=== PATIENT | female | born 1965 | race Caucasian/White ===

== ENCOUNTER 2017-12-05 06:22 | Emergency (ER) | payer MEDICARE ==
--- OUTSIDE RECORDS SUMMARY | 2017-12-05 06:26 | XMS REPORT ---
:1965 Author Organization [facility] Address [address] [place] [address] [address]. [address] [place] [address] Care Team Providers Name Role Phone Eugenie SNELL Unavailable Unavailable Problems This patient has no known problems. Allergies, Adverse Reactions, Alerts This patient has no known allergies or adverse reactions. Medications This patient has no known medications. Results Test Description Test Time Test Comments Text Results Atomic Results Result Comments POCT-GLUCOSE METER 2017-06-25 14:35:00 Test Item Value Reference Range Comments POC-GLUCOSE METER (BEAKER) (test 200 mg/dL 70-110 TESTED AT [facility] [address] cozs=1765) [facility] [address] [id number] 12:24:00 Test Item Value Reference Range Comments SODIUM (BEAKER) (test utmr=575) 136 meq/L 136-145 POTASSIUM (BEAKER) (test lcla=278) 5.4 meq/L 3.5-5.1 CHLORIDE (BEAKER) (test xiam=187) 102 meq/L 98-107 CO2 (BEAKER) (test lxdv=706) 25 meq/L 22-29 [id number] 12:24:00 Test Item Value Reference Range Comments GLUCOSE RANDOM (BEAKER) (test nyue=739) 353 mg/dL 70-105 BUN AND [id number] 12:24:00 Test Item Value Reference Range Comments BLOOD UREA NITROGEN 14 mg/dL 7-21 (BEAKER) (test neff=426) CREATININE (BEAKER) (test 1.08 mg/dL 0.57-1.25 uqnq=627) EGFR (BEAKER) (test 53 mL/min/1.73 sq m ESTIMATED GFR IS NOT dxfv=2712) ACCURATE CREATININE CLEARANCE IN PREDICTING GLOMERULAR FILTRATION RATE. ESTIMATED GFR IS NOT APPLICABLE FOR DIALYSIS PATIENTS. POCT-HEMOGLOBIN [id number] 11:43:00 Test Item Value Reference Range Comments POC-HEMOGLOBIN METER 12.1 g/dL 12.0-15.0 [address]ED AT [address] ([facility]) (test qtue=7122) [facility] [address] POCT-GLUCOSE [id number] 11:43:00 Test Item Value Reference Range Comments POC-GLUCOSE METER ([facility]) 320 mg/dL 70-110 Verify with Lab draw/TESTED AT (test hxxw=0512) [address] [address]
--- OUTSIDE RECORDS SUMMARY | 2017-12-05 06:26 | XMS REPORT | Clinical Summary ---
:1965 Author Organization [facility] Address [address] [place] [address] Phone Care Team Providers Name Role Phone Unavailable Primary Care Provider Unavailable Allergies Active Allergy Reactions Severity Noted Date Comments Food Allergy Formula 05/25/2014 GLUTEIN-SWELLING, BLOATING AND DIARRHEA. Current Medications Prescription Sig. Disp. Refills Start Date End Date Status insulin aspart Inject 4 Units Active (NOVOLOG) 100 subcutaneously 3 unit/mL InPn (three) times daily with meals And sliding scale. pregabalin (LYRICA) Take 150 mg by Active 150 MG capsule mouth 2 (two) times daily. prasugrel (EFFIENT) Take 10 mg by mouth Active 10 mg Tab tablet daily. aspirin 81 MG Take 81 mg by mouth Active chewable tablet daily. lisinopril Take 5 mg by mouth Active (PRINIVIL,ZESTRIL) 5 daily. MG tablet simvastatin (ZOCOR) Take 40 mg by mouth Active 40 MG tablet nightly. buPROPion Take 150 mg by Active (WELLBUTRIN XL) 150 mouth daily. MG 24 hr tablet DULoxetine Take 60 mg by mouth Active (CYMBALTA) 60 MG daily. capsule cyclobenzaprine Take 10 mg by mouth Active (FLEXERIL) 10 MG 2 (two) times tablet daily. promethazine Take 25 mg by mouth Active (PHENERGAN) 25 MG every 6 (six) hours tablet as needed for Nausea. ondansetron (ZOFRAN) Take 4 mg by mouth Active 4 MG tablet as needed for Nausea. furosemide (LASIX) Take 40 mg by mouth Active 40 MG tablet as needed. pantoprazole Take 40 mg by mouth Active (PROTONIX) 40 MG daily. tablet LORazepam (ATIVAN) 1 Take 1 mg by mouth Active MG tablet every 6 (six) hours as needed for Anxiety. insulin glargine Inject 19 Units Active (LANTUS) 100 unit/mL subcutaneously injection every morning Use as directed . metoprolol Take 50 mg by mouth Active (TOPROL-XL) 50 MG 24 daily. hr tablet ferrous sulfate 325 Take 325 mg by Active (65 FE) MG tablet mouth 2 (two) times daily. traZODone (DESYREL) Take 50 mg by mouth Active 50 MG tablet nightly. dicyclomine (BENTYL) Take 20 mg by mouth Active 20 mg tablet as needed. acetaminophen Take 650 mg by Active (TYLENOL) 650 MG CR mouth 2 (two) times tablet daily. insulin detemir Inject Discontinued (LEVEMIR) 100 subcutaneously 7 unit/mL (3 mL) InPn nightly. 12 UNITS injection IN AM 4 UNITS IN PM. meloxicam (MOBIC) 15 Take 15 mg by mouth Discontinued MG tablet daily. 7 metoprolol Take 25 mg by mouth Discontinued (LOPRESSOR) 25 MG 2 (two) times 7 tablet daily. naproxen Take 220 mg by Discontinued (ALEVE,ANAPROX,MIDOL mouth as needed. 7 ) 220 MG tablet clonazePAM Take 0.5 mg by Discontinued (KLONOPIN) 0.5 MG mouth 2 (two) times 7 tablet daily as needed for Anxiety. sulfamethoxazole-tri Take 1 tablet by Discontinued methoprim (BACTRIM mouth 2 (two) times 7 DS) 800-160 mg per daily. tablet Active Problems Problem Noted Date Trigger finger of left thumb 06/25/2017 Encounters Date Type Specialty Care Team Description 06/25/2017 Hospital Encounter Jayden Marte MD 06/25/2017 Procedure Pass 06/25/2017 Surgery Jayden Marte TRIGGER B., MD FINGER 06/24/2017 Hospital Encounter Pre-Admission Jayden Marte MD 06/24/2017 Anesthesia Event Sly Malloy MD after 12/04/2016 Social History Tobacco Use Types Packs/Day Years Used Date Current Every Day Smoker 0.5 10 Smokeless Tobacco: Never Used Tobacco Cessation: Ready to Quit: Yes; Counseling Given: Yes Comments: handout to be given dos Alcohol Use Drinks/Week oz/Week Comments No Sex Assigned at Date Recorded Not on file Last Filed Vital Signs Vital Sign Reading Time Taken Blood Pressure 106/47 06/25/2017 3:26 PM CDT Pulse 77 06/25/2017 3:30 PM CDT Temperature 36.6 C (97.8 F) 06/25/2017 3:26 PM CDT Respiratory Rate 20 06/25/2017 3:26 PM CDT Oxygen Saturation 99% 06/25/2017 3:30 PM CDT Inhaled Oxygen Concentration - - Weight 90.7 kg (200 lb) 06/25/2017 11:12 AM CDT Height 162.6 cm (5' 4") 06/25/2017 11:12 AM CDT Body Mass Index 34.33 06/25/2017 11:12 AM CDT Plan of Treatment Not on file Procedures Procedure Name Priority Date/Time Associated Diagnosis Comments RELEASE,TRIGGER FINGER 06/25/2017 1:10 PM Trigger finger of left CDT thumb after 12/04/2016 Results POC-Glucose meter (06/25/2017 2:32 PM)Only the most recent of2 resultswithin the time period is included. Component Value Ref Range POC-Glucose Meter 200 (H)Comment: TESTED AT [address] 70 - 110 mg/[place] [address] Specimen Performing Laboratory Blood [facility] [address] [address] ECG 12 lead (06/25/2017 1:04 PM) Specimen Performing Laboratory GE MUSE Narrative Ventricular Rate 76 BPM Atrial Rate 76 BPM P-R Interval 156 ms QRS Duration 86 ms Q-T Interval 382 ms QTC Calculation(Bazett) 429 ms P [place] 7 degrees R [place] 59 degrees T [place] 28 degrees Normal sinus rhythm Normal ECG No previous ECGs available Confirmed by MD NASSAR CHUNG-SHIN ([id number]) on 07/06/2017 10:28:29 AM Procedure Note Interface, External Ris In - 07/06/2017 10:28 AM CDT Ventricular Rate 76 BPM Atrial Rate 76 BPM P-R Interval 156 ms QRS Duration 86 ms Q-T Interval 382 ms QTC Calculation(Bazett) 429 ms P [place] 7 degrees R [place] 59 degrees T [place] 28 degrees Normal sinus rhythm Normal ECG No previous ECGs available Confirmed by MD NASSAR CHUNG-SHIN ([id number]) on 07/06/2017 10:28:29 AM BUN and Creatinine (06/25/2017 11:38 AM) Component Value Ref Range BUN 14 7 - 21 mg/dL Creatinine 1.08 0.57 - 1.25 mg/dL EGFR 53Comment: ESTIMATED GFR IS NOT ACCURATE mL/min/1.73 sq m CREATININE CLEARANCE IN PREDICTING GLOMERULAR FILTRATION RATE. ESTIMATED GFR IS NOT APPLICABLE FOR DIALYSIS PATIENTS. Specimen Performing Laboratory Blood - Arm, [address] [address] Glucose (06/25/2017 11:38 AM) Component Value Ref Range Glucose 353 (H) 70 - 105 mg/dL Specimen Performing Laboratory Blood - Arm, [address] [address] Electrolytes (06/25/2017 11:38 AM) Component Value Ref Range Sodium 136 136 - 145 meq/L Potassium 5.4 (H) 3.5 - 5.1 meq/L Chloride 102 98 - 107 meq/L CO2 25 22 - 29 meq/L Specimen Performing Laboratory Blood - Arm, [address] [address] POC-Hemoglobin meter (06/25/2017 11:34 AM) Component Value Ref Range POC-Hemoglobin Meter 12.1Comment: TESTED AT [address] 12.0 - 15.0 g/ dL [facility] [address] Specimen Performing Laboratory Blood [address] [address] POCT , urine (06/25/2017 10:56 AM) Component Value Ref Range Test Urine, POC Negative Control line present?, POC Yes Background clear?, POC Yes UPT Cassette Lot #, POC [id number] UPT Cassette Expiration Date, POC 11/03/18 Specimen Performing Laboratory Urine after 12/04/2016
--- NOTE | 2017-12-05 08:04 | RAD REPORT ---
EXAM DESCRIPTION: CT - Thorax Wo Con - 12/05/2017 7:27 am CLINICAL HISTORY: Right chest pain status post fall 3 days ago COMPARISON: 2012 TECHNIQUE: Computed axial tomography of the chest was obtained. Contrast was not requested. All CT scans are performed using dose optimization technique as appropriate and may include automated exposure control or mA/KV adjustment according to patient size. FINDINGS: The evaluation of mediastinum, patricia and vessels is limited secondary to lack of IV contras t administration. Callus formation is present about subacute fracture involving the posterolateral rib fracture. A pulmonary contusion is not present. A mediastinal hematoma is not seen. A pleural effusion is not present. A pericardial effusion is not present Postsurgical changes involve the stomach. The esophagus is mildly dilated containing fluid without si gnificant change from the prior exam. This may be secondary to reflux Coronary arterial calcifications are present IMPRESSION: Callus formation is present about a late subacute right posterolateral rib fracture. The esophagus is mildly dilated containing fluid without significant change from the prior exam. Thi s may be secondary to reflux
--- NOTE | 2017-12-05 08:16 | EDPHYS ---
Physician Documentation [facility] Name: Ila Pérez Age: 52 yrs Sex: Female : 1965 Arrival Date: 12/05/2017 Time: 06:26 Bed 6 Private MD: Fabián Guerra E ED Physician Yoan Landon HPI: 12/05 06:45 This 52 yrs old Female presents to ER via Ambulatory with complaints of kb Cough, right rib pain, Fall Injury. 06:45 The patient or guardian reports chest pain that is located primarily in the anterior kb chest wall. Onset: The symptoms/episode began/occurred 3 day(s) ago. The pain does not radiate. Associated signs and symptoms: Pertinent positives: cough. The chest pain is described as aching. Duration: The patient or guardian reports a single episode, that is still ongoing, and unchanged. Modifying factors: The symptoms are alleviated by nothing. the symptoms are aggravated by cough, deep breath, movement, palpation of area. Severity of pain: At its worst the pain was mild moderate in the emergency department the pain is unchanged. The patient has not experienced similar symptoms in the past. The patient has not recently seen a physician. Pt states she fell 3 days ago and landed with right arm under her right lower ribs. Has had pain to right lower ribs since then. Pain is worse with cough, deep breath, movement and palpation. States she has been fighting a cold since before the fall and she hasn't been coughing good because of the pain. Historical: - Allergies: 06:45 Gluten Protein; bb - Home Meds: 07:05 Lantus Sub-Q 18 unit in morning [Active]; Humalog 100 unit/mL Sub-Q soln [Active]; bb lisinopril 5 mg Oral tab 1 tab once daily [Active]; bupropion HCl 150 mg Oral TbER once daily [Active]; aspirin 81 mg Oral TbEC 1 tab once daily [Active]; pantoprazole 40 mg oral TbEC 1 tab 2 times per day [Active]; Lyrica Oral 150 mg 2 times per day [Active]; lorazepam 1 mg Oral tab twice a day [Active]; Vasculera 630 mg oral tab daily [Active]; cyclobenzaprine 10 mg Oral tab twice a day [Active]; ferrous sulfate 325 mg (65 mg iron) Oral TbEC twice a day [Active]; metoprolol succinate 25 mg oral Tb24 1 tab once daily [Active]; duloxetine 60 mg oral cpDR 2 caps once daily [Active]; zaleplon 10 mg oral cap 1 cap once daily [Active]; Rozerem 8 mg Oral tab 1 tab bedtime [Active]; trazodone 50 mg Oral tab nightly [Active]; Myrbetriq 25 mg oral Tb24 1 tab once daily [Active]; furosemide 40 mg Oral tab 1 tab once daily [Active]; benzonatate 100 mg oral cap 1 cap twice a day [Active]; tramadol 50 mg Oral tab 1 tab three times a day [Active]; dicyclomine 20 mg Oral tab 1 tab 4 times per day [Active]; promethazine 25 mg Oral tab 1 tab q6h prn [Active]; ondansetron HCl 8 mg Oral tab [Active]; Albuterol Inhl [Active]; hydroxyzine HCl 25 mg Oral tab 1 tab twice a day [Active]; diphenoxylate-atropine 2.5-0.025 mg Oral tab 1-2 tablets every 6 hours [Active]; Carafate 100 mg/mL Oral susp 10 mL three times a day [Active]; nitroglycerin 0.4 mg SL subl 1 tab every 5 minutes [Active]; claritan [Active]; super B complex [Active]; K2 [Active]; Folic Acid Oral [Active]; D3 2000 IU 2 per day [Active]; Glucosamine oral oral [Active]; [place] 120 mg daily [Active]; Cinnamon 500 mg oral cap 2 cap daily [Active]; multivitamin oral cap [Active]; vitamin E 400 unit Oral cap daily [Active]; - PMHx: 07:05 Anxiety; Arthritis; Depression; Diabetes - IDDM; Esophagitis; Fibromyalgia; bb gastroporeisis; GERD; heart disease; High Cholesterol; Hypertension; Myocardial infarction; neuropathy; raynaud's; sleep disorder; Tachycardia; - PSHx: 07:05 Tonsillectomy; Gastric Bypass; Cholecystectomy; ; Rt femur repair; bb - Immunization history:: Adult Immunizations up to date. - Social history:: Smoking status: Patient uses tobacco products, smokes one-half pack cigarettes per day, Patient/guardian denies using alcohol, street drugs. ROS: 06:45 Constitutional: Negative for fever, chills, and weight loss, ENT: Negative for injury, kb pain, and discharge, Neck: Negative for injury, pain, and swelling, Abdomen/GI: Negative for abdominal pain, nausea, vomiting, diarrhea, and constipation, Back: Negative for injury and pain, MS/Extremity: Negative for injury and deformity, Skin: Negative for injury, rash, and discoloration, Neuro: Negative for headache, weakness, numbness, tingling, and seizure. 06:45 Cardiovascular: Positive for chest pain, with cough, with movement, of the right lateral posterior chest and right lateral anterior chest, Negative for edema, orthopnea, palpitations, paroxysmal nocturnal dyspnea. 06:45 Respiratory: Positive for cough, with no reported sputum, Negative for dyspnea on exertion, hemoptysis, orthopnea, pleurisy, shortness of breath, sputum production, wheezing. Exam: 06:45 Constitutional: This is a well developed, well nourished patient who is awake, alert, kb and in no acute distress. Head/Face: Normocephalic, atraumatic. ENT: Nares patent. No nasal discharge, no septal abnormalities noted. Tympanic membranes are normal and external auditory canals are clear. Oropharynx with no redness, swelling, or masses, exudates, or evidence of obstruction, uvula midline. Mucous membranes moist. Neck: Trachea midline, no thyromegaly or masses palpated, and no cervical lymphadenopathy. Supple, full range of motion without nuchal rigidity, or vertebral point tenderness. No Meningismus. Cardiovascular: Regular rate and rhythm with a normal S1 and S2. No gallops, murmurs, or rubs. Normal PMI, no JVD. No pulse deficits. Respiratory: Lungs have equal breath sounds bilaterally, clear to auscultation and percussion. No rales, rhonchi or wheezes noted. No increased work of breathing, no retractions or nasal flaring. Abdomen/GI: Soft, non-tender, with normal bowel sounds. No distension or tympany. No guarding or rebound. No evidence of tenderness throughout. Back: No spinal tenderness. No costovertebral tenderness. Full range of motion. Skin: Warm, dry with normal turgor. Normal color with no rashes, no lesions, and no evidence of cellulitis. MS/ Extremity: Pulses equal, no cyanosis. Neurovascular intact. Full, normal range of motion. Neuro: Awake and alert, GCS 15, oriented to person, place, time, and situation. Cranial nerves II-XII grossly intact. Motor strength 5/5 in all extremities. Sensory grossly intact. Cerebellar exam normal. Normal gait. 06:45 Chest/axilla: Inspection: normal, Palpation: tenderness, that is moderate, of the right lateral posterior chest and right lateral anterior chest, that totally reproduces the patient's complaints. Vital Signs: 06:45 BP 143 / 62; Pulse 92; Resp 18 S; Temp 97.7(O); Pulse Ox 100% on R/A; Weight 95.25 kg bb (R); Height 5 ft. 4 in. (162.56 cm) (R); Pain 7/10; 07:13 BP 126 / 49; Pulse 85; Resp 16 S; Pulse Ox 99% on R/A; jl7 08:00 BP 130 / 70; Pulse 82; Resp 16 S; Pulse Ox 100% on R/A; jl7 06:45 Body Mass Index 36.05 (95.25 kg, 162.56 cm) bb MDM: 06:41 Patient medically screened. kb 06:45 Data reviewed: vital signs, nurses notes. Data interpreted: Pulse oximetry: on room air kb is 100 %. Interpretation: normal. 08:15 Counseling: I had a detailed discussion with the patient and/or guardian regarding: the kb historical points, exam findings, and any diagnostic results supporting the discharge/admit diagnosis, radiology results, the need for outpatient follow up, a family practitioner, to return to the emergency department if symptoms worsen or persist or if there are any questions or concerns that arise at home. 12/05 06:44 Order name: CT Chest Wo Con; Complete Time: 08:10 kb Administered Medications: 08:05 Drug: TORadol 60 mg Route: IM; Site: right gluteus; jl7 08:25 Follow up: Response: No adverse reaction; Pain is decreased jl7 Disposition: 21:15 Co-signature as Attending Physician, Yoan Landon MD. pkl Disposition: 12/05/17 08:16 Discharged to Home. Impression: Fracture of one rib, right side, Chest pain on breathing. - Condition is Stable. - Discharge Instructions: Chest Wall Pain, [id number]-[id number], Rib Fracture, [id number]. - Prescriptions for Diclofenac Sodium 75 mg Oral Tablet, Delayed Release (E.C.) - take 1 tablet by ORAL route 2 times per day As needed; 30 tablet. - Medication Reconciliation Form, Thank You Letter, Antibiotic Education, Prescription Opioid Use form. - Follow up: Emergency Department; When: As needed; Reason: Worsening of condition. Follow up: Private Physician; When: 2 - 3 days; Reason: Recheck today's complaints, Continuance of care, Re-evaluation by your physician. Signatures: Dispatcher [employer] ED[facility] Leanne Garrison, MILENAC NICOLAS-Yoan Christopher MD MD pkl Ballard, Brenda, RN RN Elin Nixon RN RN jl7
--- NOTE | 2017-12-05 08:16 | ER ---
Nurse's Notes [facility] Name: Ila Pérez Age: 52 yrs Sex: Female : 1965 Arrival Date: 12/05/2017 Time: 06:26 Bed 6 Private MD: Fabián Guerra E Diagnosis: Fracture of one rib, right side;Chest pain on breathing Presentation: 12/05 06:40 Presenting complaint: Patient states: she fell three days ago and has pain under her bb right breast radiating around to her back, pain is worse when lying flat and taking a deep breath pt denies LOC. Transition of care: patient was not received from another setting of care. Onset of symptoms was December 01, 2017. Care prior to arrival: None. 06:40 Method Of Arrival: Ambulatory bb 06:40 Acuity: DEVONTE 4 bb Historical: - Allergies: 06:45 Gluten Protein; bb - Home Meds: 07:05 Lantus Sub-Q 18 unit in morning [Active]; Humalog 100 unit/mL Sub-Q soln [Active]; bb lisinopril 5 mg Oral tab 1 tab once daily [Active]; bupropion HCl 150 mg Oral TbER once daily [Active]; aspirin 81 mg Oral TbEC 1 tab once daily [Active]; pantoprazole 40 mg oral TbEC 1 tab 2 times per day [Active]; Lyrica Oral 150 mg 2 times per day [Active]; lorazepam 1 mg Oral tab twice a day [Active]; Vasculera 630 mg oral tab daily [Active]; cyclobenzaprine 10 mg Oral tab twice a day [Active]; ferrous sulfate 325 mg (65 mg iron) Oral TbEC twice a day [Active]; metoprolol succinate 25 mg oral Tb24 1 tab once daily [Active]; duloxetine 60 mg oral cpDR 2 caps once daily [Active]; zaleplon 10 mg oral cap 1 cap once daily [Active]; Rozerem 8 mg Oral tab 1 tab bedtime [Active]; trazodone 50 mg Oral tab nightly [Active]; Myrbetriq 25 mg oral Tb24 1 tab once daily [Active]; furosemide 40 mg Oral tab 1 tab once daily [Active]; benzonatate 100 mg oral cap 1 cap twice a day [Active]; tramadol 50 mg Oral tab 1 tab three times a day [Active]; dicyclomine 20 mg Oral tab 1 tab 4 times per day [Active]; promethazine 25 mg Oral tab 1 tab q6h prn [Active]; ondansetron HCl 8 mg Oral tab [Active]; Albuterol Inhl [Active]; hydroxyzine HCl 25 mg Oral tab 1 tab twice a day [Active]; diphenoxylate-atropine 2.5-0.025 mg Oral tab 1-2 tablets every 6 hours [Active]; Carafate 100 mg/mL Oral susp 10 mL three times a day [Active]; nitroglycerin 0.4 mg SL subl 1 tab every 5 minutes [Active]; claritan [Active]; super B complex [Active]; K2 [Active]; Folic Acid Oral [Active]; D3 2000 IU 2 per day [Active]; Glucosamine oral oral [Active]; [place] 120 mg daily [Active]; Cinnamon 500 mg oral cap 2 cap daily [Active]; multivitamin oral cap [Active]; vitamin E 400 unit Oral cap daily [Active]; - PMHx: 07:05 Anxiety; Arthritis; Depression; Diabetes - IDDM; Esophagitis; Fibromyalgia; bb gastroporeisis; GERD; heart disease; High Cholesterol; Hypertension; Myocardial infarction; neuropathy; raynaud's; sleep disorder; Tachycardia; - PSHx: 07:05 Tonsillectomy; Gastric Bypass; Cholecystectomy; ; Rt femur repair; bb - Immunization history:: Adult Immunizations up to date. - Social history:: Smoking status: Patient uses tobacco products, smokes one-half pack cigarettes per day, Patient/guardian denies using alcohol, street drugs. Screenin:42 Abuse screen: Denies threats or abuse. Denies injuries from another. Nutritional aa1 screening: No deficits noted. Tuberculosis screening: No symptoms or risk factors identified. Fall Risk Fall in past 12 months (25 points). Assessment: 06:42 General: Appears in no apparent distress. comfortable, Behavior is calm, cooperative, aa1 appropriate for age. Pain: Complains of pain in underneath right breast Quality of pain is described as sharp, Pain began 2-3 days ago. after falling Is intermittent. Neuro: Level of Consciousness is awake, alert, obeys commands, Oriented to person, place, time, situation. Cardiovascular: Heart tones S1 S2 present Rhythm is regular. Respiratory: Reports pain with cough pain with respiration Airway is patent Respiratory effort is even, unlabored, Respiratory pattern is regular, symmetrical, Breath sounds are clear bilaterally. GI: No signs and/or symptoms were reported involving the gastrointestinal system. : No signs and/or symptoms were reported regarding the genitourinary system. EENT: No signs and/or symptoms were reported regarding the EENT system. Derm: Skin is intact, is healthy with good turgor, Skin is pink, warm \T\ dry. Musculoskeletal: Circulation, motion, and sensation intact. Capillary refill < 3 seconds, Range of motion: intact in all extremities. 07:30 Reassessment: Pt to radiology. jl7 07:55 Reassessment: Patient and/or family updated on plan of care and expected duration. Pain jl7 level reassessed. Patient is alert, oriented x 3, equal unlabored respirations, skin warm/dry/pink. pt c/o pain underneath the right breast, rated 7/10. Provider notified. See MAR for orders. 08:25 Reassessment: Pt reports decreased pain at this time. jl7 Vital Signs: 06:45 BP 143 / 62; Pulse 92; Resp 18 S; Temp 97.7(O); Pulse Ox 100% on R/A; Weight 95.25 kg bb (R); Height 5 ft. 4 in. (162.56 cm) (R); Pain 7/10; 07:13 BP 126 / 49; Pulse 85; Resp 16 S; Pulse Ox 99% on R/A; jl7 08:00 BP 130 / 70; Pulse 82; Resp 16 S; Pulse Ox 100% on R/A; jl7 06:45 Body Mass Index 36.05 (95.25 kg, 162.56 cm) bb ED Course: 06:26 Patient arrived in ED. am2 06:26 Fabián Guerra MD is Private Physician. am2 06:41 [facility] kb 06:41 Yoan Landon MD is Attending Physician. kb 06:42 Triage completed. bb 06:42 Patient has correct armband on for positive identification. Bed in low position. Call aa1 light in reach. Pulse ox on. NIBP on. Warm blanket given. 06:45 Arm band placed on Patient placed in an exam room, on a stretcher, on pulse oximetry. bb 07:05 Elin Abrams, RN is Primary Nurse. jl7 07:27 CT completed. Patient tolerated procedure well. Patient moved back from CT. vr 07:27 CT Chest Wo Con In Process Unspecified. EDMS 08:25 No provider procedures requiring assistance completed. Patient did not have IV access jl7 during this emergency room visit. Administered Medications: 08:05 Drug: TORadol 60 mg Route: IM; Site: right gluteus; jl7 08:25 Follow up: Response: No adverse reaction; Pain is decreased jl7 Outcome: 08:16 Discharge ordered by . cipriano 08:25 Discharged to home ambulatory. jl7 08:25 Condition: stable 08:25 Discharge instructions given to patient, Instructed on discharge instructions, follow up and referral plans. medication usage, Demonstrated understanding of instructions, follow-up care, medications, Prescriptions given X 1. 08:28 Patient left the ED. jl7 Signatures: Dispatcher [employer] EDTX Leanne Garrison, PERSONAL LINES ACCOUNT MANAGER-C PERSONAL LINES ACCOUNT MANAGER-CkSteph Gomez, RN RN Reshma Lamar, RN RN Elise Ga Elin Abrams, RN RN jl7 Erendira Dao
[2017-12-05] MEDS ORDERED: KETOROLAC 30 MG/ML INJ ONE (08:21)
[2017-12-05 08:33] VITALS: TEMP 97.7
[2017-12-05 08:35] VITALS: BP 130/70; O2SAT 100
== END 2017-12-05 08:28 | disposition home or self-care (01) ==
LOC: ER 06:22
DX: S22.31XA Fracture of one rib, right side, initial encounter for closed fracture (principal); F41.9 Anxiety disorder, unspecified; K21.9 Gastro-esophageal reflux disease without esophagitis; E11.9 Type 2 diabetes mellitus without complications; I10 Essential (primary) hypertension; M79.7 Fibromyalgia; E78.00 Pure hypercholesterolemia, unspecified; I51.9 Heart disease, unspecified; F17.210 Nicotine dependence, cigarettes, uncomplicated; W19.XXXA Unspecified fall, initial encounter; Y93.9 Activity, unspecified; Y92.9 Unspecified place or not applicable; Y99.9 Unspecified external cause status; Z91.018 Allergy to other foods
CPT/HCPCS: 71250; 96372; 99284

== ENCOUNTER 2017-12-12 18:32 | Emergency (ER) | payer MEDICARE ==
--- OUTSIDE RECORDS SUMMARY | 2017-12-12 18:34 | XMS REPORT ---
:1965 Author Organization [facility] Address [address] [place] [address] [address]. [address] [place] [address] Care Team Providers Name Role Phone Eugenie [...] (BEAKER) (test 200 mg/dL 70-[address] [facility] [address] [facility] [id number]) [facility] [address] [id number] 12:24:00 Test Item Value Reference Range Comments SODIUM (BEAKER) (test spty=241) 136 meq/L 136-145 POTASSIUM (BEAKER) (test mmsj=208) 5.4 meq/L 3.5-5.1 CHLORIDE (BEAKER) (test pytw=296) 102 meq/L 98-107 CO2 (BEAKER) (test lawd=530) 25 meq/L 22-29 [id number] 12:24:00 Test Item Value Reference Range Comments GLUCOSE RANDOM (BEAKER) (test lbdi=754) 353 mg/dL 70-105 BUN AND [id number] 12:24:00 Test Item Value Reference Range Comments BLOOD UREA NITROGEN 14 mg/dL 7-21 (BEAKER) (test kkfu=130) CREATININE (BEAKER) (test 1.08 mg/dL 0.57-1.25 wqoy=610) EGFR (BEAKER) (test 53 mL/min/1.73 sq m ESTIMATED GFR IS NOT hphp=8614) ACCURATE CREATININE CLEARANCE IN PREDICTING GLOMERULAR FILTRATION RATE. ESTIMATED GFR IS NOT APPLICABLE FOR DIALYSIS PATIENTS. POCT-HEMOGLOBIN [id number] 11:43:00 Test Item Value Reference Range Comments POC-HEMOGLOBIN METER 12.1 g/dL 12.0-15.0 [address]ED AT [address] ([facility]) (test cvly=6168) [facility] [address] POCT-GLUCOSE [id number] 11:43:00 Test Item Value Reference Range Comments POC-GLUCOSE METER ([facility]) 320 mg/dL 70-110 Verify with Lab draw/TESTED AT (test iije=3220) [address] [address]
--- OUTSIDE RECORDS SUMMARY | 2017-12-12 18:34 | XMS REPORT | Clinical Summary ---
:1965 Author Organization [facility] Address [address] [place] [address] Phone Care Team Providers Name Role Phone [...] 06/24/2017 Anesthesia Event Sly Malloy MD after 12/11/2016 Social History Tobacco Use Types Packs/Day Years [...] Trigger finger of left CDT thumb after 12/11/2016 Results POC-Glucose meter (06/25/2017 2:32 PM)Only the most recent of2 resultswithin the time period is included. Component Value Ref Range POC-Glucose Meter 200 (H)Comment: TESTED AT [address] 70 - 110 mg/[place] [address] Specimen Performing Laboratory Blood [facility] [address] [address] ECG 12 lead (06/25/2017 1:04 PM) Specimen Performing Laboratory GE MUSE Narrative Ventricular Rate 76 BPM Atrial Rate 76 BPM P-R Interval 156 ms QRS Duration 86 ms Q-T Interval 382 ms QTC Calculation(Bazett) 429 ms P [place] 7 degrees R [place] 59 degrees T [place] 28 degrees Normal sinus rhythm Normal ECG No previous ECGs available Confirmed by MD NASSAR CHUNG-SHIN ([id number]) on 07/06/2017 10:28:29 AM Procedure Note Interface, External Ris In - 07/06/2017 10:28 AM CDT Ventricular Rate 76 BPM Atrial Rate 76 BPM P-R Interval 156 ms QRS Duration 86 ms Q-T Interval 382 ms QTC Calculation(Bazett) 429 ms P [place] 7 degrees R [place] 59 degrees T [place] 28 degrees Normal sinus rhythm Normal ECG [...] PATIENTS. Specimen Performing Laboratory Blood - Arm, [address] [address] Glucose (06/25/2017 11:38 AM) Component Value Ref Range Glucose 353 (H) 70 - 105 mg/dL Specimen Performing Laboratory Blood - Arm, [address] [address] Electrolytes (06/25/2017 11:38 AM) Component Value Ref Range Sodium 136 136 - 145 meq/L Potassium 5.4 (H) 3.5 - 5.1 meq/L Chloride 102 98 - 107 meq/L CO2 25 22 - 29 meq/L Specimen Performing Laboratory Blood - Arm, [address] [address] POC-Hemoglobin meter (06/25/2017 11:34 AM) Component Value Ref Range POC-Hemoglobin Meter 12.1Comment: TESTED AT [address] 12.0 - 15.0 g/ dL [facility] [address] Specimen Performing Laboratory Blood [address] [address] POCT , urine (06/25/2017 10:56 AM) Component Value Ref Range Test Urine, POC Negative Control line present?, POC Yes Background clear?, POC Yes UPT Cassette Lot #, POC [id number] UPT Cassette Expiration Date, POC 11/03/18 Specimen Performing Laboratory Urine after 12/11/2016
[2017-12-12] MEDS ORDERED: ONDANSETRON 4 MG/2 ML VIAL ONE (19:23)
[2017-12-12] MEDS ORDERED: MORPHINE 10 MG/ML VIAL ONE (19:23)
[2017-12-12 19:39] LABS: Absolute Lymphocytes (CBC) 2.1 K/uL (0.7-4.9); Absolute Monocytes 0.8 K/uL (0.1-1.3); Absolute Neutrophil 7.6 K/uL (1.8-8.0); Basophils % 0.8 % (0-1.3); Eosinophils % 2.8 % (0-4.4); Hematocrit 40.9 % (36.0-45.0); MCH 27.1 pg (27.0-35.0); MPV 9.8 fL (7.6-11.3); Monocytes % 7.6 % (3.3-12.3); RBC Red Blood Cell Count 5.05 M/uL (3.86-4.86)
[2017-12-12 19:44] LABS: Protime INR 0.94
[2017-12-12 19:49] LABS: Potassium 4.5 mEq/L (3.6-5.0)
--- NOTE | 2017-12-12 19:50 | RAD REPORT ---
EXAM DESCRIPTION: Jesus Single View12/12/2017 7:22 pm CLINICAL HISTORY: Chest pain COMPARISON: December 05, 2017 FINDINGS: The lungs appear clear of acute infiltrate. The heart is normal size IMPRESSION: No acute abnormalities displayed
[2017-12-12 19:55] LABS: Albumin 4.3 g/dL (3.2-5.5); Bilirubin Direct 0.1 mg/dL (0-0.2); Bilirubin Total 0.8 mg/dL (0.3-1.2); Magnesium 1.7 mg/dL (1.8-2.5); Protein, Total 7.9 g/dL (6.0-8.3)
[2017-12-12] MEDS ORDERED: NA CHLORIDE 0.9% 1,000 ML ONE ×2 (20:26→23:08)
[2017-12-12 21:57] LABS: Urine Blood NEGATIVE (NEG); Urine Glucose 1+ (NEG); Urine Protein TRACE (NEG); Urine Specific Gravity 1.015 (1.005-1.030)
[2017-12-12] MEDS ORDERED: PROMETHAZINE 25 MG/ML VIAL ONE (22:01)
[2017-12-12] MEDS ORDERED: INSULIN -REGULAR HUMAN 50 UNIT/0.5 ML ML ONE (23:08)
--- NOTE | 2017-12-13 00:10 | EDPHYS ---
Physician Documentation [facility] Name: Ila Pérez Age: 52 yrs Sex: Female : 1965 Arrival Date: 12/12/2017 Time: 18:34 Bed 5 Private MD: Fabián Guerra E ED Physician Chuy Cox HPI: 12/12 21:23 This 52 yrs old Female presents to ER via Ambulatory with complaints of Chest pm1 Pain, Nausea. 21:23 The patient or guardian reports chest pain that is located primarily in the substernal pm1 area. Onset: 2 hours prior to arrival. 21:24 Associated signs and symptoms: Pertinent positives: cough, nausea, shortness of breath, pm1 Pertinent negatives: abdominal pain, diaphoresis, dizziness, vomiting. The chest pain is described as sharp. Duration: The patient or guardian reports a single episode. Modifying factors: The symptoms are alleviated by nothing. the symptoms are aggravated by deep breath, palpation of area. Severity of pain: in the emergency department the pain is unchanged. The patient has experienced similar episodes in the past, several times. The patient has not recently seen a physician. Patient denies any radiation of pain to me. Patient reports urinary frequency with little urine production. Patient feels that she might have a urinary tract infection. 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 TECHNICAL SPECIALIST: 18:41 LMP N/A - Irregular menses hj Historical: - Allergies: 18:41 Gluten Protein; hj - Home Meds: 18:41 Albuterol Inhl [Active]; aspirin 81 mg Oral TbEC 1 tab once daily [Active]; benzonatate hj 100 mg Oral cap 1 cap twice a day [Active]; bupropion HCl 150 mg Oral TbER once daily [Active]; Carafate 100 mg/mL Oral susp 10 mL three times a day [Active]; Cinnamon 500 mg Oral cap 2 cap daily [Active]; claritan [Active]; cyclobenzaprine 10 mg Oral tab twice a day [Active]; D3 2000 IU 2 per day [Active]; dicyclomine 20 mg Oral tab 1 tab 4 times per day [Active]; diphenoxylate-atropine 2.5-0.025 mg Oral tab 1-2 tablets every 6 hours [Active]; duloxetine 60 mg Oral cpDR 2 caps once daily [Active]; ferrous sulfate 325 mg (65 mg iron) Oral TbEC twice a day [Active]; Folic Acid Oral [Active]; furosemide 40 mg Oral tab 1 tab once daily [Active]; Ginko [place] 120 mg daily [Active]; Glucosamine Oral [Active]; Humalog 100 unit/mL Sub-Q soln [Active]; hydroxyzine HCl 25 mg Oral tab 1 tab twice a day [Active]; k2 [Active]; Lantus Sub-Q 18 unit in morning [Active]; lisinopril 5 mg Oral tab 1 tab once daily [Active]; lorazepam 1 mg Oral tab twice a day [Active]; Lyrica Oral 150 mg 2 times per day [Active]; metoprolol succinate 25 mg Oral Tb24 1 tab once daily [Active]; multivitamin Oral cap [Active]; Myrbetriq 25 mg Oral Tb24 1 tab once daily [Active]; nitroglycerin 0.4 mg SL subl 1 tab every 5 minutes [Active]; ondansetron HCl 8 mg Oral tab [Active]; pantoprazole 40 mg Oral TbEC 1 tab 2 times per day [Active]; promethazine 25 mg Oral tab 1 tab q6h prn [Active]; Rozerem 8 mg Oral tab 1 tab bedtime [Active]; super B complex [Active]; tramadol 50 mg Oral tab 1 tab three times a day [Active]; trazodone 50 mg Oral tab nightly [Active]; Vasculera 630 mg Oral tab daily [Active]; vitamin E 400 unit Oral cap daily [Active]; zaleplon 10 mg Oral cap 1 cap once daily [Active]; - PMHx: 18:41 Anxiety; Arthritis; Depression; Diabetes - IDDM; Esophagitis; Fibromyalgia; hj gastroporeisis; GERD; heart disease; High Cholesterol; Hypertension; Myocardial infarction; neuropathy; raynaud's; sleep disorder; Tachycardia; - PSHx: 18:41 Tonsillectomy; Gastric Bypass; Cholecystectomy; ; Rt femur repair; hj - Immunization history:: Adult Immunizations up to date. - Social history:: Smoking status: Patient/guardian denies using tobacco. ROS: 21:24 Constitutional: Negative for fever, chills, and weight loss, Eyes: Negative for injury, pm1 pain, redness, and discharge, ENT: Negative for injury, pain, and discharge, Neck: Negative for injury, pain, and swelling. 21:24 Abdomen/GI: Negative for abdominal pain, nausea, vomiting, diarrhea, and constipation, Back: Negative for injury and pain. 21:24 MS/Extremity: Negative for injury and deformity, Skin: Negative for injury, rash, and discoloration, Neuro: Negative for headache, weakness, numbness, tingling, and seizure. 21:24 Cardiovascular: Positive for chest pain, Negative for edema, palpitations, paroxysmal nocturnal dyspnea. 21:24 Respiratory: Positive for cough, shortness of breath, Negative for sputum production, wheezing. 21:24 : Positive for urinary frequency, small amounts. Exam: 21:31 Constitutional: This is a well developed, well nourished patient who is awake, alert, pm1 and in no acute distress. Head/Face: Normocephalic, atraumatic. Eyes: Pupils equal round and reactive to light, extra-ocular motions intact. Lids and lashes normal. Conjunctiva and sclera are non-icteric and not injected. Cornea within normal limits. Periorbital areas with no swelling, redness, or edema. ENT: Nares patent. No nasal discharge, no septal abnormalities noted. Tympanic membranes are normal and external auditory canals are clear. Oropharynx with no redness, swelling, or masses, exudates, or evidence of obstruction, uvula midline. Mucous membranes moist. Neck: Trachea midline, no thyromegaly or masses palpated, and no cervical lymphadenopathy. Supple, full range of motion without nuchal rigidity, or vertebral point tenderness. No Meningismus. 21:31 Cardiovascular: Regular rate and rhythm with a normal S1 and S2. No gallops, murmurs, or rubs. No pulse deficits. Respiratory: Lungs have equal breath sounds bilaterally, clear to auscultation and percussion. No rales, rhonchi or wheezes noted. No increased work of breathing, no retractions or nasal flaring. Abdomen/GI: Soft, non-tender, with normal bowel sounds. No distension or tympany. No guarding or rebound. No evidence of tenderness throughout. Back: No spinal tenderness. No costovertebral tenderness. Full range of motion. Skin: Warm, dry with normal turgor. Normal color with no rashes, no lesions, and no evidence of cellulitis. MS/ Extremity: Pulses equal, no cyanosis. Neurovascular intact. Full, normal range of motion. 21:31 Chest/axilla: Inspection: normal, Palpation: tenderness, that is moderate, of the mid-sternal area, that totally reproduces the patient's complaints. 21:31 Neuro: Orientation: is normal, Mentation: is normal, Motor: moves all fours, strength is normal, strength is 5/5 in all extremities, Sensation: is normal, no obvious gross deficits. Vital Signs: 18:41 BP 115 / 70; Pulse 107; Resp 18; Temp 97.6(TE); Pulse Ox 99% on R/A; Weight 90.72 kg; hj Height 5 ft. 4 in. (162.56 cm); Pain 7/10; 20:10 BP 123 / 56; Pulse 95; Resp 16; Pulse Ox 100% on R/A; la1 21:32 BP 146 / 77; Pulse 100; Resp 16; Pulse Ox 100% on R/A; la1 23:10 BP 132 / 60; Pulse 95; Resp 18; Pulse Ox 100% on R/A; Pain 0/10; ak1 18:41 Body Mass Index 34.33 (90.72 kg, 162.56 cm) hj MDM: 18:48 Patient medically screened. pm1 21:31 Data reviewed: vital signs. Data interpreted: Pulse oximetry: on room air is 100 %. pm1 Interpretation: normal. 22:57 Differential diagnosis: acute myocardial infarction, chest wall pain, pneumonia, pm1 unstable angina, rib fracture pain, hyperglycemia, DKA. 12/12 18:55 Order name: Basic Metabolic Panel pm1 12/12 18:55 Order name: BNP pm1 12/12 18:55 Order name: CBC with Diff; Complete Time: 20:04 pm12/12 18:55 Order name: LFT's; Complete Time: 20:04 pm1 12/12 18:55 Order name: Magnesium; Complete Time: 20:04 pm12/12 18:55 Order name: PT-INR; Complete Time: 20:04 pm12/12 18:55 Order name: Ptt, Activated; Complete Time: 20:04 pm12/12 18:55 Order name: Troponin (emerg Dept Use Only); Complete Time: 20:04 pm1 12/12 18:55 Order name: XRAY Chest (1 view); Complete Time: 20:04 pm1 12/12 18:55 Order name: Basic Metabolic Panel; Complete Time: 20:04 EDMS 12/12 18:55 Order name: BNP B-Type Natriuretic Peptide; Complete Time: 20:19 EDMS 12/12 21:38 Order name: Urine Dipstick--Ancillary (enter results); Complete Time: 22:00 em1 12/12 22:28 Order name: Troponin (emerg Dept Use Only): Draw at 2300; Complete Time: 23:45 pm1 12/12 18:55 Order name: EKG; Complete Time: 18:55 pm1 12/12 18:55 Order name: Cardiac monitoring; Complete Time: 19:00 pm1 12/12 18:55 Order name: EKG - Nurse/Tech; Complete Time: 19:34 pm1 12/12 18:55 Order name: IV Saline Lock; Complete Time: 19:34 pm1 12/12 18:55 Order name: Labs collected and sent; Complete Time: 19:34 pm1 12/12 18:55 Order name: O2 Per Protocol; Complete Time: 19:34 pm1 12/12 18:55 Order name: O2 Sat Monitoring; Complete Time: 19:34 pm1 12/12 18:55 Order name: Urine Dipstick-Ancillary (obtain specimen); Complete Time: 21:27 pm1 12/12 18:55 Order name: Urine Test (obtain specimen); Complete Time: 21:27 pm1 12/12 23:46 Order name: FSBS; Complete Time: 23:51 snw Administered Medications: 19:34 Drug: morphine 4 mg Route: IVP; Site: right antecubital; la1 20:10 Follow up: Response: No adverse reaction; Pain is decreased la1 19:34 Drug: Zofran 4 mg Route: IVP; Site: right antecubital; la1 20:10 Follow up: Response: No adverse reaction la1 20:10 Drug: NS 0.9% 1000 ml Route: IV; Rate: 1000 ml; Site: right antecubital; la1 21:46 Drug: Phenergan 12.5 mg Route: IVP; Site: right antecubital; bp 23:35 Follow up: Response: No adverse reaction ak1 22:55 Drug: Insulin Regular Human 10 units {Co-Signature: ak1 (Karon Shaffer RN).} Route: IVP; fc Site: right antecubital; 23:34 Follow up: Response: No adverse reaction ak1 22:55 Drug: NS 0.9% 1000 ml Route: IV; Rate: 1000 ml; Site: right antecubital; 12/13 00:00 Drug: Magnesium 400 mg Route: PO; ak1 00:00 Follow up: Response: No adverse reaction ak1 Point of Care Testing: Blood Glucose: 12/12 22:38 Blood Glucose: 350 mg/dL; bp 23:43 Blood Glucose: 290 mg/dL; jb5 Ranges: Critical Glucose Levels:Adult <50 mg/dl or >400 mg/dl <40 mg/dl or >180 mg/dl Disposition: 12/13 07:09 Co-signature as Attending Physician, Chuy Cox MD. rn Disposition: 12/13/17 00:10 Discharged to Home. Impression: Chest pain, unspecified, Hyperglycemia, unspecified. - Condition is Stable. - Discharge Instructions: Nonspecific Chest Pain, Hyperglycemia, Blood Glucose Monitoring, Adult. - Prescriptions for promethazine 25 mg Oral Tablet - take 1 tablet by ORAL route every 6 hours As needed; 20 tablet. - Medication Reconciliation Form, Thank You Letter, Antibiotic Education, Prescription Opioid Use form. - Follow up: Emergency Department; When: As needed; Reason: Worsening of condition. Follow up: Fabián Guerra; When: 2 - 3 days; Reason: Recheck today's complaints, Continuance of care, Re-evaluation by your physician. - Problem is new. - Symptoms have improved. Signatures: Dispatcher [employer] EDJanelle Niño, SPECIAL MAKEUP FX ARTIST INSTRUCTOR-C SPECIAL MAKEUP FX ARTIST INSTRUCTOR-Csnw Nora Morales RN MARTÍNEZ Chuy Cox MD MD rn Attema, Lee RN RN laKaron Mccoy RN RN ak1 Joel Blair RN Barrett Yip, SOCIAL SCIENCE TEACHER SOCIAL SCIENCE TEACHER pm1 Fito Granados RN RN bp Karon Shaffer RN ak1 Corrections: (The following items were deleted from the chart) 00:10 00:09 Chart complete. snw snw
--- NOTE | 2017-12-13 00:10 | ER ---
Nurse's Notes [facility] Name: Ila Pérez Age: 52 yrs Sex: Female : 1965 Arrival Date: 12/12/2017 Time: 18:34 Bed 5 Private MD: Fabián Guerra E Diagnosis: Chest pain, unspecified;Hyperglycemia, unspecified Presentation: 12/12 18:36 Presenting complaint: Patient states: i have chest pain and SOB that started a couple hj of hours ago, i feel nauseous too; my chest pain moves to my back; reports cough, denies fever and chills;. Transition of care: patient was not received from another setting of care. Onset of symptoms was December 12, 2017. Care prior to arrival: None. 18:36 Method Of Arrival: Ambulatory 18:36 Acuity: DEVONTE 3 hj Triage Assessment: 18:41 General: Appears in no apparent distress. uncomfortable, Behavior is calm, cooperative, hj appropriate for age. Pain: Complains of pain in chest. Cardiovascular: Capillary refill < 3 seconds Patient's skin is warm and dry. 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 N/A - Irregular menses hj Historical: - Allergies: 18:41 Gluten Protein; hj - Home Meds: 18:41 Albuterol Inhl [Active]; aspirin 81 mg Oral TbEC 1 tab once daily [Active]; benzonatate hj 100 mg Oral cap 1 cap twice a day [Active]; bupropion HCl 150 mg Oral TbER once daily [Active]; Carafate 100 mg/mL Oral susp 10 mL three times a day [Active]; Cinnamon 500 mg Oral cap 2 cap daily [Active]; claritan [Active]; cyclobenzaprine 10 mg Oral tab twice a day [Active]; D3 2000 IU 2 per day [Active]; dicyclomine 20 mg Oral tab 1 tab 4 times per day [Active]; diphenoxylate-atropine 2.5-0.025 mg Oral tab 1-2 tablets every 6 hours [Active]; duloxetine 60 mg Oral cpDR 2 caps once daily [Active]; ferrous sulfate 325 mg (65 mg iron) Oral TbEC twice a day [Active]; Folic Acid Oral [Active]; furosemide 40 mg Oral tab 1 tab once daily [Active]; Ginko [place] 120 mg daily [Active]; Glucosamine Oral [Active]; Humalog 100 unit/mL Sub-Q soln [Active]; hydroxyzine HCl 25 mg Oral tab 1 tab twice a day [Active]; k2 [Active]; Lantus Sub-Q 18 unit in morning [Active]; lisinopril 5 mg Oral tab 1 tab once daily [Active]; lorazepam 1 mg Oral tab twice a day [Active]; Lyrica Oral 150 mg 2 times per day [Active]; metoprolol succinate 25 mg Oral Tb24 1 tab once daily [Active]; multivitamin Oral cap [Active]; Myrbetriq 25 mg Oral Tb24 1 tab once daily [Active]; nitroglycerin 0.4 mg SL subl 1 tab every 5 minutes [Active]; ondansetron HCl 8 mg Oral tab [Active]; pantoprazole 40 mg Oral TbEC 1 tab 2 times per day [Active]; promethazine 25 mg Oral tab 1 tab q6h prn [Active]; Rozerem 8 mg Oral tab 1 tab bedtime [Active]; super B complex [Active]; tramadol 50 mg Oral tab 1 tab three times a day [Active]; trazodone 50 mg Oral tab nightly [Active]; Vasculera 630 mg Oral tab daily [Active]; vitamin E 400 unit Oral cap daily [Active]; zaleplon 10 mg Oral cap 1 cap once daily [Active]; - PMHx: 18:41 Anxiety; Arthritis; Depression; Diabetes - IDDM; Esophagitis; Fibromyalgia; hj gastroporeisis; GERD; heart disease; High Cholesterol; Hypertension; Myocardial infarction; neuropathy; raynaud's; sleep disorder; Tachycardia; - PSHx: 18:41 Tonsillectomy; Gastric Bypass; Cholecystectomy; ; Rt femur repair; hj - Immunization history:: Adult Immunizations up to date. - Social history:: Smoking status: Patient/guardian denies using tobacco. Screenin:33 Abuse screen: Denies threats or abuse. Nutritional screening: No deficits noted. la1 Tuberculosis screening: No symptoms or risk factors identified. Fall Risk None identified. Assessment: 18:43 Pain: Pain does not radiate. Pain began. 19:33 General: Appears uncomfortable, Behavior is calm, cooperative. Neuro: Level of la1 Consciousness is awake, alert, obeys commands, Oriented to person, place, time, situation. Cardiovascular: Heart tones S1 S2 present Capillary refill < 3 seconds Patient's skin is warm and dry. Rhythm is sinus rhythm. Respiratory: Airway is patent Respiratory effort is even, unlabored, Respiratory pattern is regular, symmetrical, Breath sounds are clear bilaterally. GI: No signs and/or symptoms were reported involving the gastrointestinal system. : No signs and/or symptoms were reported regarding the genitourinary system. 20:11 Reassessment: Patient appears in no apparent distress at this time. No changes from la1 previously documented assessment. Patient and/or family updated on plan of care and expected duration. Pain level reassessed. Patient is alert, oriented x 3, equal unlabored respirations, skin warm/dry/pink. Vital Signs: 18:41 BP 115 / 70; Pulse 107; Resp 18; Temp 97.6(TE); Pulse Ox 99% on R/A; Weight 90.72 kg; hj Height 5 ft. 4 in. (162.56 cm); Pain 7/10; 20:10 BP 123 / 56; Pulse 95; Resp 16; Pulse Ox 100% on R/A; la1 21:32 BP 146 / 77; Pulse 100; Resp 16; Pulse Ox 100% on R/A; la1 23:10 BP 132 / 60; Pulse 95; Resp 18; Pulse Ox 100% on R/A; Pain 0/10; ak1 18:41 Body Mass Index 34.33 (90.72 kg, 162.56 cm) ED Course: 18:34 Patient arrived in ED. as 18:34 Fabián Guerra MD is Private Physician. as 18:37 Triage completed. hj 18:41 Arm band placed on right wrist. hj 18:43 toll collector on. Pulse ox on. NIBP on. hj 18:43 Patient maintains SpO2 saturation greater than 95% on room air. hj 18:47 Barrett Sexton NP is PHCP. pm1 18:47 Chuy Cox MD is Attending Physician. pm1 18:59 Aristides Mukherjee, MARTÍNEZ is Primary Nurse. la1 19:19 X-ray completed. Portable x-ray completed in exam room. Patient tolerated procedure jw2 well. 19:20 XRAY Chest (1 view) In Process Unspecified. EDMS 19:33 No provider procedures requiring assistance completed. Accessed ,peripheral vein via la1 ultrasound, utilizing static ultrasound technique using 18G Nexia IV Catheter Clean \T\ dry. Good blood return. Flushes easily. 21:27 Placed in gown. Bed in low position. Call light in reach. toll collector on. Pulse ox la1 on. NIBP on. 23:08 [facility] role handed off by Barrett Sexton NP snw 23:08 Janelle Barrera FNP-C is [facility]. snw 12/13 00:10 Fabián Guerra MD is Referral Physician. snw 00:15 IV discontinued, intact, bleeding controlled, No redness/swelling at site. Pressure ak1 dressing applied. Administered Medications: 12/12 19:34 Drug: morphine 4 mg Route: IVP; Site: right antecubital; la1 20:10 Follow up: Response: No adverse reaction; Pain is decreased la1 19:34 Drug: Zofran 4 mg Route: IVP; Site: right antecubital; la1 20:10 Follow up: Response: No adverse reaction la1 20:10 Drug: NS 0.9% 1000 ml Route: IV; Rate: 1000 ml; Site: right antecubital; la1 21:46 Drug: Phenergan 12.5 mg Route: IVP; Site: right antecubital; bp 23:35 Follow up: Response: No adverse reaction ak1 22:55 Drug: Insulin Regular Human 10 units {Co-Signature: ak1 (Karon Shaffer RN).} Route: IVP; Site: right antecubital; 23:34 Follow up: Response: No adverse reaction ak1 22:55 Drug: NS 0.9% 1000 ml Route: IV; Rate: 1000 ml; Site: right antecubital; fc 12/13 00:00 Drug: Magnesium 400 mg Route: PO; ak1 00:00 Follow up: Response: No adverse reaction ak1 Point of Care Testing: Blood Glucose: 12/12 22:38 Blood Glucose: 350 mg/dL; bp 23:43 Blood Glucose: 290 mg/dL; jb5 Ranges: Outcome: 12/13 00:10 Discharge ordered by . snw 00:12 Discharged to home ambulatory. ak1 00:12 Condition: good 00:12 Discharge instructions given to patient, Instructed on discharge instructions, follow up and referral plans. no drinking with medication, no driving heavy equipment, medication usage, Demonstrated understanding of instructions, follow-up care, medications, Prescriptions given X 1. 00:37 Patient left the ED. ak1 Signatures: Dispatcher [employer] EDMS Janelle Barrera, MECHANICAL MAINTENANCE ENGINEER-C MECHANICAL MAINTENANCE ENGINEER-Csnw Nora Morales RN RN Aylin Yan Lee, RN RN la1 Karon Shaffer RN RN ak1 Joel Blair RN RN Barrett Sexton NP FRUIT TRIMMER pm1 Ros Fisher2 Jovita Starr jb5 Fito Granados RN RN bp Karon Shaffer RN ak1 Corrections: (The following items were deleted from the chart) 12/12 18:44 18:41 Pulse 95bpm; Resp 18bpm; Pulse Ox 97% RA; Temp 97.6F Temporal; 90.72 kg; Height 5 hj ft. 4 in.; BMI: 34.3; Pain 7/10; hj
[2017-12-13] MEDS ORDERED: MAGNESIUM OXIDE 400 MG TAB ONE (00:18)
[2017-12-13 00:49] VITALS: TEMP 97.6
[2017-12-13 00:50] VITALS: O2SAT 100
[2017-12-13 00:53] VITALS: BP 132/60
--- NOTE | 2017-12-13 06:29 | EKG ---
Test Date: 2017-12-12 Test Time: 18:59:54 Adjunct Mathematics Instructor: ALBERTO MEASUREMENT RESULTS: Intervals: Rate: 92 PA: 134 QRSD: 74 QT: 354 QTc: 437 [facility]: P: 78 PA: 134 QRS: 64 T: 47 INTERPRETIVE STATEMENTS: Normal sinus rhythm Normal ECG Compared to ECG 03/06/2017 16:32:30 No significant changes Electronically Signed On 12-13-17 06:28:19 CDT by Cassius Perea
== END 2017-12-13 00:37 | disposition home or self-care (01) ==
LOC: ER 18:32
DX: E11.65 Type 2 diabetes mellitus with hyperglycemia (principal); Z79.4 Long term (current) use of insulin; I10 Essential (primary) hypertension; I25.2 Old myocardial infarction; E78.00 Pure hypercholesterolemia, unspecified; F41.9 Anxiety disorder, unspecified; F32.9 Major depressive disorder, single episode, unspecified; Z79.82 Long term (current) use of aspirin; Z91.018 Allergy to other foods
CPT/HCPCS: 36415; 71045; 80048; 80076; 81003; 82962 ×2; 83735; 83880; 84484 ×2; 85025; 85610; 85730; 93005; 96374; 96375; 99285; J2405; J2550; J7030 ×2

== ENCOUNTER 2017-12-19 11:49 | Emergency (ER) | payer MEDICARE ==
--- OUTSIDE RECORDS SUMMARY | 2017-12-19 11:51 | XMS REPORT | Clinical Summary ---
:1965 Author Organization [facility] Address [address] [place] [address] Phone Care Team Providers Name Role Phone [...] 06/24/2017 Anesthesia Event Sly Malloy MD after 12/18/2016 Social History Tobacco Use Types Packs/Day Years [...] Trigger finger of left CDT thumb after 12/18/2016 Results POC-Glucose meter (06/25/2017 2:32 PM)Only the most recent of2 resultswithin the time period is included. Component Value Ref Range POC-Glucose Meter 200 (H)Comment: TESTED AT [address] 70 - 110 mg/[place] [address] Specimen Performing Laboratory Blood [facility] [address] [address] ECG 12 lead (06/25/2017 1:04 PM) Specimen Performing Laboratory GE MUSE Narrative Ventricular Rate 76 BPM Atrial Rate 76 BPM P-R Interval 156 ms QRS Duration 86 ms Q-T Interval 382 ms QTC Calculation(Bazett) 429 ms P [place] 7 degrees R [place] 59 degrees T [place] 28 degrees Normal sinus rhythm Normal ECG No previous ECGs available Confirmed by MD NASSAR CHUNG-SHIN ([id number]) on 07/06/2017 10:28:29 AM Procedure Note Interface, External Ris In - 07/06/2017 10:28 AM CDT Ventricular Rate 76 BPM Atrial Rate 76 BPM P-R Interval 156 ms QRS Duration 86 ms Q-T Interval 382 ms QTC Calculation(Bazett) 429 ms P [place] 7 degrees R [place] 59 degrees T [place] 28 degrees Normal sinus rhythm Normal ECG [...] PATIENTS. Specimen Performing Laboratory Blood - Arm, [address] [address] Glucose (06/25/2017 11:38 AM) Component Value Ref Range Glucose 353 (H) 70 - 105 mg/dL Specimen Performing Laboratory Blood - Arm, [address] [address] Electrolytes (06/25/2017 11:38 AM) Component Value Ref Range Sodium 136 136 - 145 meq/L Potassium 5.4 (H) 3.5 - 5.1 meq/L Chloride 102 98 - 107 meq/L CO2 25 22 - 29 meq/L Specimen Performing Laboratory Blood - Arm, [address] [address] POC-Hemoglobin meter (06/25/2017 11:34 AM) Component Value Ref Range POC-Hemoglobin Meter 12.1Comment: TESTED AT [address] 12.0 - 15.0 g/ dL [facility] [address] Specimen Performing Laboratory Blood [address] [address] POCT , urine (06/25/2017 10:56 AM) Component Value Ref Range Test Urine, POC Negative Control line present?, POC Yes Background clear?, POC Yes UPT Cassette Lot #, POC [id number] UPT Cassette Expiration Date, POC 11/03/18 Specimen Performing Laboratory Urine after 12/18/2016
--- OUTSIDE RECORDS SUMMARY | 2017-12-19 11:51 | XMS REPORT ---
:1965 Author Organization [facility] Address [address] [place] [address] [address]. [address] [place] [address] Care Team Providers Name Role Phone Eugenie [...] 200 mg/dL 70-[address] [facility] [address] [facility] saho=[id number]) [facility] [address] [id number] 12:24:00 Test Item Value Reference Range Comments SODIUM (BEAKER) (test kenq=936) 136 meq/L 136-145 POTASSIUM (BEAKER) (test bxoj=740) 5.4 meq/L 3.5-5.1 CHLORIDE (BEAKER) (test pdxa=181) 102 meq/L 98-107 CO2 (BEAKER) (test bify=478) 25 meq/L 22-29 [id number] 12:24:00 Test Item Value Reference Range Comments GLUCOSE RANDOM (BEAKER) (test ekce=838) 353 mg/dL 70-105 BUN AND [id number] 12:24:00 Test Item Value Reference Range Comments BLOOD UREA NITROGEN 14 mg/dL 7-21 (BEAKER) (test oxmg=333) CREATININE (BEAKER) (test 1.08 mg/dL 0.57-1.25 miuw=180) EGFR (BEAKER) (test 53 mL/min/1.73 sq m ESTIMATED GFR IS NOT zjrr=1737) ACCURATE CREATININE CLEARANCE IN PREDICTING GLOMERULAR FILTRATION RATE. ESTIMATED GFR IS NOT APPLICABLE FOR DIALYSIS PATIENTS. POCT-HEMOGLOBIN [id number] 11:43:00 Test Item Value Reference Range Comments POC-HEMOGLOBIN METER 12.1 g/dL 12.0-15.[address] ([place]) (test juim=4225) [facility] [address] POCT-GLUCOSE [id number] 11:43:00 Test Item Value Reference Range Comments POC-GLUCOSE METER ([place]) 320 mg/dL 70-110 Verify with Lab draw/TESTED AT (test jeua=2815) [address] [address]
[2017-12-19] MEDS ORDERED: LEVALBUTEROL 1.25 MG/3 ML NEB ONE (13:27)
--- NOTE | 2017-12-19 14:44 | ER ---
Nurse's Notes [facility] Name: Ila Pérez Age: 52 yrs Sex: Female : 1965 Arrival Date: 12/19/2017 Time: 11:51 Bed 25 Private MD: Diagnosis: Cough;Bronchitis, not specified as acute or chronic Presentation: 12/19 12:04 Presenting complaint: Patient states: ines been fighting foa cold or something, now i hj have horrible cough, SOB, i feel like im going to a pneumonia; reports fever;. Transition of care: patient was not received from another setting of care. Onset of symptoms was December 19, 2017. Care prior to arrival: None. 12:04 Method Of Arrival: Ambulatory 12:04 Acuity: DEVONTE 3 hj Triage Assessment: 12:06 General: Appears in no apparent distress. uncomfortable, Behavior is calm, cooperative, hj appropriate for age. Pain: Complains of pain in chest. Respiratory: Reports shortness of breath Onset: The symptoms/episode began/occurred gradually, the patient has mild shortness of breath. 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 LMP N/A - Post-menopause hj Historical: - Allergies: 12:06 Gluten Protein; hj - Home Meds: 12:11 Albuterol Inhl [Active]; aspirin 81 mg Oral TbEC 1 tab once daily [Active]; benzonatate hj 100 mg Oral cap 1 cap twice a day [Active]; bupropion HCl 150 mg Oral TbER once daily [Active]; Carafate 100 mg/mL Oral susp 10 mL three times a day [Active]; Cinnamon 500 mg Oral cap 2 cap daily [Active]; claritan [Active]; cyclobenzaprine 10 mg Oral tab twice a day [Active]; D3 2000 IU 2 per day [Active]; dicyclomine 20 mg Oral tab 1 tab 4 times per day [Active]; diphenoxylate-atropine 2.5-0.025 mg Oral tab 1-2 tablets every 6 hours [Active]; duloxetine 60 mg Oral cpDR 2 caps once daily [Active]; ferrous sulfate 325 mg (65 mg iron) Oral TbEC twice a day [Active]; Folic Acid Oral [Active]; furosemide 40 mg Oral tab 1 tab once daily [Active]; Ginko [place] 120 mg daily [Active]; Glucosamine Oral [Active]; Humalog 100 unit/mL Sub-Q soln [Active]; hydroxyzine HCl 25 mg Oral tab 1 tab twice a day [Active]; k2 [Active]; Lantus Sub-Q 18 unit in morning [Active]; lisinopril 5 mg Oral tab 1 tab once daily [Active]; lorazepam 1 mg Oral tab twice a day [Active]; Lyrica Oral 150 mg 2 times per day [Active]; metoprolol succinate 25 mg Oral Tb24 1 tab once daily [Active]; multivitamin Oral cap [Active]; Myrbetriq 25 mg Oral Tb24 1 tab once daily [Active]; nitroglycerin 0.4 mg SL subl 1 tab every 5 minutes [Active]; ondansetron HCl 8 mg Oral tab [Active]; pantoprazole 40 mg Oral TbEC 1 tab 2 times per day [Active]; promethazine 25 mg Oral tab 1 tab q6h prn [Active]; Rozerem 8 mg Oral tab 1 tab bedtime [Active]; super B complex [Active]; tramadol 50 mg Oral tab 1 tab three times a day [Active]; trazodone 50 mg Oral tab nightly [Active]; Vasculera 630 mg Oral tab daily [Active]; vitamin E 400 unit Oral cap daily [Active]; zaleplon 10 mg Oral cap 1 cap once daily [Active]; - PMHx: 12:06 Anxiety; Arthritis; Depression; Diabetes - IDDM; Esophagitis; Fibromyalgia; hj gastroporeisis; GERD; heart disease; High Cholesterol; Hypertension; Myocardial infarction; neuropathy; raynaud's; sleep disorder; Tachycardia; - PSHx: 12:06 Tonsillectomy; Gastric Bypass; Cholecystectomy; ; Rt femur repair; hj - Immunization history:: Adult Immunizations up to date. - Social history:: Smoking status: Patient uses tobacco products, smokes one-half pack cigarettes per day. Screenin:22 Abuse screen: Denies threats or abuse. Nutritional screening: No deficits noted. tl3 Tuberculosis screening: No symptoms or risk factors identified. Fall Risk None identified. Assessment: 12:07 Respiratory: Airway is patent Respiratory effort is even, unlabored, Respiratory hj pattern is regular, 12:07 Cardiovascular: Rhythm is regular. hj 13:22 General: Appears uncomfortable, well groomed, well developed, well nourished, Behavior tl3 is calm, cooperative, appropriate for age. Pain: Complains of pain in anterior aspect of right upper chest, anterior aspect of left upper chest and mid-sternal area Aggravated by deep breathing, coughing. Neuro: Level of Consciousness is awake, alert, obeys commands, Oriented to person, place, time, situation, Appropriate for age. Cardiovascular: Heart tones S1 S2 present Capillary refill < 3 seconds in bilateral fingers. Respiratory: Airway. GI: No signs and/or symptoms were reported involving the gastrointestinal system. : No signs and/or symptoms were reported regarding the genitourinary system. EENT: No signs and/or symptoms were reported regarding the EENT system. Derm: No signs and/or symptoms reported regarding the dermatologic system. Musculoskeletal: No signs and/or symptoms reported regarding the musculoskeletal system. 14:27 Reassessment: Patient appears in no apparent distress at this time. Patient and/or tl3 family updated on plan of care and expected duration. Pain level reassessed. Patient is alert, oriented x 3, equal unlabored respirations, skin warm/dry/pink. pt feeling much better. 15:03 Reassessment: Patient appears in no apparent distress at this time. No changes from tl3 previously documented assessment. Patient and/or family updated on plan of care and expected duration. Pain level reassessed. Patient is alert, oriented x 3, equal unlabored respirations, skin warm/dry/pink. Vital Signs: 12:07 BP 134 / 45; Pulse 99; Resp 18; Temp 97.8(TE); Pulse Ox 99% on R/A; Weight 90.72 kg; hj Height 5 ft. 4 in. (162.56 cm); Pain 6/10; 14:27 BP 153 / 53; Pulse 117; Resp 18; Pulse Ox 100% on R/A; tl3 15:03 BP 136 / 52; Pulse 117; Resp 18; Pulse Ox 98% on R/A; tl3 12:07 Body Mass Index 34.33 (90.72 kg, 162.56 cm) ED Course: 11:51 Patient arrived in ED. tw3 12:05 Triage completed. hj 12:07 Arm band placed on left wrist. hj 12:22 Rasta Clayton MD is Attending Physician. kdr 13:14 Maribell Davis, RN is Primary Nurse. tl3 13:22 Resting quietly. tl3 13:22 Patient has correct armband on for positive identification. Bed in low position. Call tl3 light in reach. Adult w/ patient. 13:22 No provider procedures requiring assistance completed. tl3 13:58 X-ray completed. Portable x-ray completed in exam room. jr1 13:59 CXR XRAY In Process Unspecified. EDMS 15:08 Patient did not have IV access during this emergency room visit. tl3 Administered Medications: 13:25 Drug: Xopenex (3) 1.25 mg Route: Inhalation; tl3 14:19 Follow up: Response: No adverse reaction; Marked relief of symptoms tl3 Outcome: 14:43 Discharge ordered by MD. kdr 15:03 Discharged to home ambulatory. tl3 15:03 Condition: good 15:03 Discharge instructions given to patient, Instructed on discharge instructions, follow up and referral plans. medication usage, Demonstrated understanding of instructions, follow-up care, medications, Prescriptions given X 2. 15:08 Patient left the ED. tl3 Signatures: Dispatcher [employer] EDGA Rasta Clayton MD MD kdr Ringgold, Jennifer jr1 Jole Blair, RN RN Wanda Shultz 3 Maribell Davis, RN RN tl3 Corrections: (The following items were deleted from the chart) 12:11 12:07 Pulse 101bpm; Resp 18bpm; Pulse Ox 99% RA; Temp 97.8F Temporal; 90.72 kg; Height hj 5 ft. 4 in.; BMI: 34.3; Pain 6/10; hj
--- NOTE | 2017-12-19 14:44 | EDPHYS ---
Physician Documentation [facility] Name: Ila Pérez Age: 52 yrs Sex: Female : 1965 Arrival Date: 12/19/2017 Time: 11:51 Bed 25 Private MD: ED Physician Rasta Clayton HPI: 12/19 16:27 This 52 yrs old Female presents to ER via Ambulatory with complaints of Chest kdr Congestion, Shortness Of Breath. 16:27 The patient has shortness of breath at rest, with light activity. Onset: The kdr symptoms/episode began/occurred gradually, Her s/s have been ongoing for 3 - 5 weeks but have become worse in the last few days.. Duration: The symptoms are continuous, and are steadily getting worse. The patient's shortness of breath is aggravated by coughing, exertion, light activity, is alleviated by nothing. Associated signs and symptoms: Pertinent positives: non-productive cough, Pertinent negatives: productive cough, diaphoresis, dizziness, fever, hemoptysis, loss of consciousness, nausea, numbness in extremities, visual changes, vomiting. Severity of symptoms: At their worst the symptoms were moderate just prior to arrival, in the emergency department the symptoms are unchanged. The patient has not experienced similar symptoms in the past. The patient has not recently seen a physician. 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 hj Historical: - Allergies: 12:06 Gluten Protein; hj - Home Meds: 12:11 Albuterol Inhl [Active]; aspirin 81 mg Oral TbEC 1 tab once daily [Active]; benzonatate hj 100 mg Oral cap 1 cap twice a day [Active]; bupropion HCl 150 mg Oral TbER once daily [Active]; Carafate 100 mg/mL Oral susp 10 mL three times a day [Active]; Cinnamon 500 mg Oral cap 2 cap daily [Active]; claritan [Active]; cyclobenzaprine 10 mg Oral tab twice a day [Active]; D3 2000 IU 2 per day [Active]; dicyclomine 20 mg Oral tab 1 tab 4 times per day [Active]; diphenoxylate-atropine 2.5-0.025 mg Oral tab 1-2 tablets every 6 hours [Active]; duloxetine 60 mg Oral cpDR 2 caps once daily [Active]; ferrous sulfate 325 mg (65 mg iron) Oral TbEC twice a day [Active]; Folic Acid Oral [Active]; furosemide 40 mg Oral tab 1 tab once daily [Active]; Ginko [place]bo[place] 120 mg daily [Active]; Glucosamine Oral [Active]; Humalog 100 unit/mL Sub-Q soln [Active]; hydroxyzine HCl 25 mg Oral tab 1 tab twice a day [Active]; k2 [Active]; Lantus Sub-Q 18 unit in morning [Active]; lisinopril 5 mg Oral tab 1 tab once daily [Active]; lorazepam 1 mg Oral tab twice a day [Active]; Lyrica Oral 150 mg 2 times per day [Active]; metoprolol succinate 25 mg Oral Tb24 1 tab once daily [Active]; multivitamin Oral cap [Active]; Myrbetriq 25 mg Oral Tb24 1 tab once daily [Active]; nitroglycerin 0.4 mg SL subl 1 tab every 5 minutes [Active]; ondansetron HCl 8 mg Oral tab [Active]; pantoprazole 40 mg Oral TbEC 1 tab 2 times per day [Active]; promethazine 25 mg Oral tab 1 tab q6h prn [Active]; Rozerem 8 mg Oral tab 1 tab bedtime [Active]; super B complex [Active]; tramadol 50 mg Oral tab 1 tab three times a day [Active]; trazodone 50 mg Oral tab nightly [Active]; Vasculera 630 mg Oral tab daily [Active]; vitamin E 400 unit Oral cap daily [Active]; zaleplon 10 mg Oral cap 1 cap once daily [Active]; - PMHx: 12:06 Anxiety; Arthritis; Depression; Diabetes - IDDM; Esophagitis; Fibromyalgia; hj gastroporeisis; GERD; heart disease; High Cholesterol; Hypertension; Myocardial infarction; neuropathy; raynaud's; sleep disorder; Tachycardia; - PSHx: 12:06 Tonsillectomy; Gastric Bypass; Cholecystectomy; ; Rt femur repair; hj - Immunization history:: Adult Immunizations up to date. - Social history:: Smoking status: Patient uses tobacco products, smokes one-half pack cigarettes per day. ROS: 16:27 Constitutional: Negative for fever, chills, and weight loss, Eyes: Negative for injury, kdr pain, redness, and discharge, Neck: Negative for injury, pain, and swelling, Cardiovascular: Negative for chest pain, palpitations, and edema, Abdomen/GI: Negative for abdominal pain, nausea, vomiting, diarrhea, and constipation, Back: Negative for injury and pain, : Negative for injury, bleeding, discharge, and swelling, MS/Extremity: Negative for injury and deformity, Skin: Negative for injury, rash, and discoloration, Neuro: Negative for headache, weakness, numbness, tingling, and seizure activity. Psych: Negative for depression, anxiety, suicide ideation, homicidal ideation, and hallucinations, Allergy/Immunology: Negative for hives, rash, and allergies, Endocrine: Negative for neck swelling, polydipsia, polyuria, polyphagia, and marked weight changes, Hematologic/Lymphatic: Negative for swollen nodes, abnormal bleeding, and unusual bruising. 16:27 ENT: Positive for The patient initially had upper respiratory infection and nasal congestion. Exam: 16:27 Constitutional: This is a well developed, well nourished patient who is awake, alert, kdr and in no acute distress. Head/Face: Normocephalic, atraumatic. Eyes: Pupils equal round and reactive to light, extra-ocular motions intact. Lids and lashes normal. Conjunctiva and sclera are non-icteric and not injected. Cornea within normal limits. Periorbital areas with no swelling, redness, or edema. Neck: Trachea midline, no thyromegaly or masses palpated, and no cervical lymphadenopathy. Supple, full range of motion without nuchal rigidity, or vertebral point tenderness. No Meningismus. Chest/axilla: Normal chest wall appearance and motion. Nontender with no deformity. No lesions are appreciated. Cardiovascular: Regular rate and rhythm with a normal S1 and S2. No gallops, murmurs, or rubs. Normal PMI, no JVD. No pulse deficits. Respiratory: Lungs have equal breath sounds bilaterally, clear to auscultation and percussion. No rales, rhonchi or wheezes noted. No increased work of breathing, no retractions or nasal flaring. Abdomen/GI: Soft, non-tender, with normal bowel sounds. No distension or tympany. No guarding or rebound. No evidence of tenderness throughout. Back: No spinal tenderness. No costovertebral tenderness. Full range of motion. Skin: Warm, dry with normal turgor. Normal color with no rashes, no lesions, and no evidence of cellulitis. MS/ Extremity: Pulses equal, no cyanosis. Neurovascular intact. Full, normal range of motion. Neuro: Awake and alert, GCS 15, oriented to person, place, time, and situation. Cranial nerves II-XII grossly intact. Motor strength 5/5 in all extremities. Sensory grossly intact. Cerebellar exam normal. Normal gait. Psych: Awake, alert, with orientation to person, place and time. Behavior, mood, and affect are within normal limits. Vital Signs: 12:07 BP 134 / 45; Pulse 99; Resp 18; Temp 97.8(TE); Pulse Ox 99% on R/A; Weight 90.72 kg; hj Height 5 ft. 4 in. (162.56 cm); Pain 6/10; 14:27 BP 153 / 53; Pulse 117; Resp 18; Pulse Ox 100% on R/A; tl3 15:03 BP 136 / 52; Pulse 117; Resp 18; Pulse Ox 98% on R/A; tl3 12:07 Body Mass Index 34.33 (90.72 kg, 162.56 cm) MDM: 14:43 Patient medically screened. kdr 16:27 Data reviewed: vital signs, nurses notes, lab test result(s), radiologic studies. kdr Counseling: I had a detailed discussion with the patient and/or guardian regarding: the historical points, exam findings, and any diagnostic results supporting the discharge/admit diagnosis, lab results, radiology results. 12/19 13:24 Order name: CXR XRAY kdr Administered Medications: 13:25 Drug: Xopenex (3) 1.25 mg Route: Inhalation; tl3 14:19 Follow up: Response: No adverse reaction; Marked relief of symptoms tl3 Disposition: 12/19/17 14:43 Discharged to Home. Impression: Cough, Bronchitis, not specified as acute or chronic. - Condition is Stable. - Discharge Instructions: How to Use an Inhaler, Metered Dose Inhaler with Spacer, Acute Bronchitis, [id number]. - Prescriptions for Tessalon Perles 100 mg Oral Capsule - take 1 capsule by ORAL route every 8 hours As needed; 15 capsule. Zithromax Z- Brandyn 250 mg Oral Tablet - take 1 tablet by ORAL route as directed for 5 days Day 1 - take two (2) tablets one time. Day 2, 3, 4 , 5 take one (1) tablet once daily.; 6 tablet. Albuterol Sulfate 90 mcg/actuation - inhale 1-2 puff by INHALATION route every 4-6 hours; 1 Inhaler. - Medication Reconciliation Form, Thank You Letter, Antibiotic Education form. - Follow up: Private Physician; When: 2 - 3 days; Reason: If symptoms return, Further diagnostic work-up, Recheck today's complaints, Continuance of care, Re-evaluation by your physician. - Problem is an ongoing problem. - Symptoms have improved. Signatures: Dispatcher [employer] EDMS Rasta Clayton MD MD [facility] Joel Blair RN RN hj Maribell Davis RN RN tl3
[2017-12-19 15:20] VITALS: TEMP 97.8
[2017-12-19 15:23] VITALS: BP 136/52; O2SAT 98
--- NOTE | 2017-12-19 15:55 | RAD REPORT ---
EXAM DESCRIPTION: RAD - Chest Single View - 12/19/2017 1:59 pm CLINICAL HISTORY: Cough and congestion, shortness of breath COMPARISON: December 12 TECHNIQUE: AP portable chest image was obtained 1353 hours . FINDINGS: Lung almaguer remain clear of a focal infiltrate, mass or failure finding. Interstitial adelia ings are mildly prominent but unchanged. Heart and vasculature are normal. No measurable pleural effu walter and no pneumothorax. No gross bony abnormality seen. No acute aortic findings suspected. IMPRESSION: No acute cardiopulmonary process. No significant change from comparison.
== END 2017-12-19 15:08 | disposition home or self-care (01) ==
LOC: ER 11:49
DX: J40 Bronchitis, not specified as acute or chronic (principal); I10 Essential (primary) hypertension; E11.9 Type 2 diabetes mellitus without complications; E78.00 Pure hypercholesterolemia, unspecified; F32.9 Major depressive disorder, single episode, unspecified; F41.9 Anxiety disorder, unspecified; I25.2 Old myocardial infarction; F17.210 Nicotine dependence, cigarettes, uncomplicated; Z79.82 Long term (current) use of aspirin; Z79.4 Long term (current) use of insulin
CPT/HCPCS: 71045; 99284

== ENCOUNTER 2018-01-22 07:02 | Emergency (ER) | payer MEDICARE ==
--- OUTSIDE RECORDS SUMMARY | 2018-01-22 07:05 | XMS REPORT ---
:1965 Author Organization [facility] Address [address] [place] [address] [address] [place] [address] Care Team Providers Name Role Phone MILO SNELL Unavailable Unavailable Problems This patient has no known problems. Allergies, Adverse Reactions, Alerts This patient has no known allergies or adverse reactions. Medications This patient has no known medications. Results Test Description Test Time Test Comments Text Results Atomic Results Result Comments POCT-GLUCOSE METER 2017-06-25 14:35:00 Test Item Value Reference Range Comments POC-GLUCOSE METER (BEAKER) (test 200 mg/dL 70-110 TESTED AT [facility] [address] jhrq=6345) [facility] [address] [id number] 12:24:00 Test Item Value Reference Range Comments SODIUM (BEAKER) (test xwdq=237) 136 meq/L 136-145 POTASSIUM (BEAKER) (test lvrt=253) 5.4 meq/L 3.5-5.1 CHLORIDE (BEAKER) (test jlod=723) 102 meq/L 98-107 CO2 (BEAKER) (test pjte=089) 25 meq/L 22-29 [id number] 12:24:00 Test Item Value Reference Range Comments GLUCOSE RANDOM (BEAKER) (test rmau=403) 353 mg/dL 70-105 BUN AND [id number] 12:24:00 Test Item Value Reference Range Comments BLOOD UREA NITROGEN 14 mg/dL 7-21 (BEAKER) (test rgpf=819) CREATININE (BEAKER) (test 1.08 mg/dL 0.57-1.25 rdsu=697) EGFR (BEAKER) (test 53 mL/min/1.73 sq m ESTIMATED GFR IS NOT baet=2155) ACCURATE CREATININE CLEARANCE IN PREDICTING GLOMERULAR FILTRATION RATE. ESTIMATED GFR IS NOT APPLICABLE FOR DIALYSIS PATIENTS. POCT-HEMOGLOBIN [id number] 11:43:00 Test Item Value Reference Range Comments POC-HEMOGLOBIN METER 12.1 g/dL 12.0-15.0 [address]ED AT [address] ([facility]) (test ovut=3392) [facility] [address] POCT-GLUCOSE [id number] 11:43:00 Test Item Value Reference Range Comments POC-GLUCOSE METER ([facility]) 320 mg/dL 70-110 Verify with Lab draw/TESTED AT (test foli=0575) [address] [address]
--- OUTSIDE RECORDS SUMMARY | 2018-01-22 07:05 | XMS REPORT | Clinical Summary ---
:1965 Author Organization [facility] Address [address] [place] [address] Phone Care Team Providers Name Role Phone [...] 06/24/2017 Anesthesia Event Sly Malloy MD after 01/21/2017 Social History Tobacco Use Types Packs/Day Years [...] Trigger finger of left CDT thumb after 01/21/2017 Results POC-Glucose meter (06/25/2017 2:32 PM)Only the most recent of2 resultswithin the time period is included. Component Value Ref Range POC-Glucose Meter 200 (H)Comment: TESTED AT [address] 70 - 110 mg/[place] [address] Specimen Performing Laboratory Blood [facility] [address] [address] ECG 12 lead (06/25/2017 1:04 PM) Specimen Performing Laboratory GE MUSE Narrative Ventricular Rate 76 BPM Atrial Rate 76 BPM P-R Interval 156 ms QRS Duration 86 ms Q-T Interval 382 ms QTC Calculation(Bazett) 429 ms P Lewis 7 degrees R Lewis 59 degrees T Lewis 28 degrees Normal sinus rhythm Normal ECG No previous ECGs available Confirmed by MD NASSAR CHUNG-SHIN ([id number]) on 07/06/2017 10:28:29 AM Procedure Note Interface, External Ris In - 07/06/2017 10:28 AM CDT Ventricular Rate 76 BPM Atrial Rate 76 BPM P-R Interval 156 ms QRS Duration 86 ms Q-T Interval 382 ms QTC Calculation(Bazett) 429 ms P Lewis 7 degrees R Lewis 59 degrees T Lewis 28 degrees Normal sinus rhythm Normal ECG [...] PATIENTS. Specimen Performing Laboratory Blood - Arm, [address] [address] Glucose (06/25/2017 11:38 AM) Component Value Ref Range Glucose 353 (H) 70 - 105 mg/dL Specimen Performing Laboratory Blood - Arm, [address] [address] Electrolytes (06/25/2017 11:38 AM) Component Value Ref Range Sodium 136 136 - 145 meq/L Potassium 5.4 (H) 3.5 - 5.1 meq/L Chloride 102 98 - 107 meq/L CO2 25 22 - 29 meq/L Specimen Performing Laboratory Blood - Arm, [address] [address] POC-Hemoglobin meter (06/25/2017 11:34 AM) Component Value Ref Range POC-Hemoglobin Meter 12.1Comment: TESTED AT [address] 12.0 - 15.0 g/ dL [facility] [address] Specimen Performing Laboratory Blood [address] [address] POCT , urine (06/25/2017 10:56 AM) Component Value Ref Range Test Urine, POC Negative Control line present?, POC Yes Background clear?, POC Yes UPT Cassette Lot #, POC [id number] UPT Cassette Expiration Date, POC 11/03/18 Specimen Performing Laboratory Urine after 01/21/2017
[2018-01-22] MEDS ORDERED: IBUPROFEN 200 MG TAB PO ONE (08:10)
[2018-01-22] MEDS ORDERED: IBUPROFEN 400 MG TAB ONE (08:14)
--- NOTE | 2018-01-22 08:17 | EDPHYS ---
Physician Documentation [facility] Name: Ila Pérez Age: 52 yrs Sex: Female : 1965 Arrival Date: 01/22/2018 Time: 07:05 Bed 20 Private MD: ED Physician Junaid Garber HPI: 01/22 07:24 This 52 yrs old Female presents to ER via Unassigned with complaints of Fall kb Injury, Knee Pain. 07:24 Details of fall: The patient fell from an upright position, while walking. Onset: The kb symptoms/episode began/occurred 2 week(s) ago. Associated injuries: The patient sustained anterior aspect of right ankle and right knee, painful injury. Severity of symptoms: At their worst the symptoms were moderate, in the emergency department the symptoms are unchanged. The patient has not experienced similar symptoms in the past. The patient has not recently seen a physician. Pt reports the dogs leash got tangled up around her leg and she fell onto right knee. c/o right knee and ankle pain. 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 ch Historical: - Allergies: 07:45 Gluten Protein; ch - Home Meds: 07:45 Lantus 18 U subcutaneous soln daily [Active]; Humalog 100 unit/mL Sub-Q soln [Active]; ch lisinopril 5 mg Oral tab 1 tab once daily [Active]; bupropion HCl 150 mg Oral TbER once daily [Active]; aspirin 81 mg Oral chew 1 tab once daily [Active]; pantoprazole 40 mg Oral TbEC 1 tab 2 times per day [Active]; Lyrica Oral 150 mg 2 times per day [Active]; lorazepam 1 mg Oral tab twice a day [Active]; Vasculera 630 mg Oral tab daily [Active]; cyclobenzaprine 10 mg Oral tab twice a day [Active]; ferrous sulfate 325 mg (65 mg iron) Oral TbEC twice a day [Active]; metoprolol succinate 25 mg Oral Tb24 1 tab once daily [Active]; duloxetine 60 mg Oral cpDR 2 caps once daily [Active]; zaleplon 10 mg Oral cap 1 cap once daily [Active]; Rozerem 8 mg Oral tab 1 tab bedtime [Active]; trazodone 50 mg Oral tab nightly [Active]; Myrbetriq 25 mg Oral Tb24 1 tab once daily [Active]; Ferrous Sulfate Oral [Active]; furosemide 20 mg oral tab one to two tabs every morning [Active]; benzonatate 100 mg Oral cap 1 cap twice a day [Active]; Glucagon Emergency Kit (human) 1 mg IM kit 1 mL [Active]; tramadol 50 mg Oral tab 1 tab three times a day [Active]; promethazine 25 mg Oral tab 1 tab q6h prn [Active]; ondansetron HCl 8 mg Oral tab [Active]; Albuterol Inhl [Active]; hydroxyzine HCl 25 mg Oral tab 1 tab twice a day [Active]; diphenoxylate-atropine 2.5-0.025 mg Oral tab 1-2 tablets every 6 hours [Active]; trazodone 50 mg Oral tab 1 tab nightly [Active]; lorazepam 1 mg Oral tab 1 tab 3 times per day [Active]; Carafate 100 mg/mL Oral susp 10 mL three times a day [Active]; nitroglycerin 0.4 mg SL subl 1 tab every 5 minutes [Active]; amoxicillin and tylenol #3 for dental procedure [Active]; Claritin 10 mg Oral tab 1 tab once daily [Active]; prevagen ex Str. [Active]; super B complex [Active]; k2 100 mcg bid [Active]; Glucosamine Oral [Active]; Ginko Bilboa 120 mg daily [Active]; Cinnamon 500 mg Oral cap 2 cap daily [Active]; D3 2000 IU 2 per day [Active]; multivitamin Oral cap [Active]; Vitamin E Oral [Active]; - PMHx: 07:45 Depression; Anxiety; Arthritis; Diabetes - IDDM; Esophagitis; Fibromyalgia; ch gastroporeisis; GERD; heart disease; High Cholesterol; Hypertension; Myocardial infarction; neuropathy; raynaud's; sleep disorder; Tachycardia; - PSHx: 07:45 Tonsillectomy; Gastric Bypass; Cholecystectomy; ; Rt femur repair; Cataract sx ch lucia; R femur, knee, tibia, foot; bone spur L shoulder; R roator cuff repair; R wrist cyst removed; L hand trigger finger release; R hand trigger finger release; carpel tunnel repair; - Immunization history:: Adult Immunizations up to date. - Social history:: Smoking status: Patient uses tobacco products, smokes one pack cigarettes per day. Patient/guardian denies using alcohol, street drugs. ROS: 07:23 Constitutional: Negative for fever, chills, and weight loss, Cardiovascular: Negative kb for chest pain, palpitations, and edema, Respiratory: Negative for shortness of breath, cough, wheezing, and pleuritic chest pain, Abdomen/GI: Negative for abdominal pain, nausea, vomiting, diarrhea, and constipation, Skin: Negative for injury, rash, and discoloration, Neuro: Negative for headache, weakness, numbness, tingling, and seizure. 07:23 MS/extremity: Positive for injury or acute deformity, pain, of the right knee and anterior aspect of right ankle. Exam: 07:23 Constitutional: This is a well developed, well nourished patient who is awake, alert, kb and in no acute distress. Head/Face: Normocephalic, atraumatic. Chest/axilla: Normal chest wall appearance and motion. Nontender with no deformity. No lesions are appreciated. Cardiovascular: Regular rate and rhythm with a normal S1 and S2. No gallops, murmurs, or rubs. Normal PMI, no JVD. No pulse deficits. Respiratory: Lungs have equal breath sounds bilaterally, clear to auscultation and percussion. No rales, rhonchi or wheezes noted. No increased work of breathing, no retractions or nasal flaring. Abdomen/GI: Soft, non-tender, with normal bowel sounds. No distension or tympany. No guarding or rebound. No evidence of tenderness throughout. Back: No spinal tenderness. No costovertebral tenderness. Full range of motion. Skin: Warm, dry with normal turgor. Normal color with no rashes, no lesions, and no evidence of cellulitis. Neuro: Awake and alert, GCS 15, oriented to person, place, time, and situation. Cranial nerves II-XII grossly intact. Motor strength 5/5 in all extremities. Sensory grossly intact. Cerebellar exam normal. Normal gait. 07:23 Musculoskeletal/extremity: Extremities: grossly normal except: noted in the anterior aspect of right ankle and right knee: pain, ROM: intact in all extremities, Circulation is intact in all extremities. Sensation intact. Weight bearing: able to fully bear weight. Vital Signs: 07:45 BP 136 / 74; Pulse 68; Resp 18; Temp 98.5; Pulse Ox 99% on R/A; Weight 101.15 kg; ch Height 5 ft. 4 in. (162.56 cm); Pain 8/10; 08:31 BP 142 / 78; Pulse 62; Resp 18; Temp 98.3; Pulse Ox 99% on R/A; Pain 7/10; ch 07:45 Body Mass Index 38.28 (101.15 kg, 162.56 cm) MDM: 07:14 Patient medically screened. kb 07:23 Data reviewed: vital signs, nurses notes. Data interpreted: Pulse oximetry: on room air kb is 100 %. Interpretation: normal. 08:16 Counseling: I had a detailed discussion with the patient and/or guardian regarding: the kb historical points, exam findings, and any diagnostic results supporting the discharge/admit diagnosis, radiology results, the need for outpatient follow up, a orthopedic surgeon, to return to the emergency department if symptoms worsen or persist or if there are any questions or concerns that arise at home. 01/22 07:18 Order name: Ankle Right 3 View XRAY; Complete Time: 10:43 kb 01/22 07:18 Order name: Knee Right 3 View XRAY; Complete Time: 10:43 kb Administered Medications: 08:10 Drug: Ibuprofen 800 mg Route: PO; 08:30 Follow up: Response: No adverse reaction; Pain is decreased Disposition: 18:39 Co-signature as Attending Physician, Junaid Garber MD. Disposition: 01/22/18 08:16 Discharged to Home. Impression: Pain in right knee. - Condition is Stable. - Discharge Instructions: Musculoskeletal Pain, Knee Pain, [id number]. - Medication Reconciliation Form, Thank You Letter, Antibiotic Education, Prescription Opioid Use form. - Follow up: Emergency Department; When: As needed; Reason: Worsening of condition. Follow up: Private Physician; When: 2 - 3 days; Reason: Recheck today's complaints, Continuance of care, Re-evaluation by your physician. Signatures: Dispatcher [employer] Leanne Almonte, Maxine Preciado, RN Junaid Alexander ch, MD MD Corrections: (The following items were deleted from the chart) 07:46 07:24 Onset: The symptoms/episode began/occurred this morning, kb kb 08:32 08:16 01/22/2018 08:16 Discharged to Home. Impression: Pain in right knee. Condition is ch Stable. Forms are Medication Reconciliation Form, Thank You Letter, Antibiotic Education, Prescription Opioid Use. Follow up: Emergency Department; When: As needed; Reason: Worsening of condition. Follow up: Private Physician; When: 2 - 3 days; Reason: Recheck today's complaints, Continuance of care, Re-evaluation by your physician. cipriano
--- NOTE | 2018-01-22 08:17 | ER ---
Nurse's Notes [facility] Name: Ila Pérez Age: 52 yrs Sex: Female : 1965 Arrival Date: 01/22/2018 Time: 07:05 Bed 20 Private MD: Diagnosis: Pain in right knee Presentation: 01/22 07:24 Presenting complaint: Patient states: pain to R knee leg and ankle s/p fall 2 weeks ch ago. dog tripped her and pt landed on gras. Transition of care: patient was not received from another setting of care. Onset of symptoms was January 06, 2018. Initial Sepsis Screen: Does the patient meet any 2 criteria? No. Patient's initial sepsis screen is negative. Does the patient have a suspected source of infection? No. Patient's initial sepsis screen is negative. Care prior to arrival: None. 07:24 Method Of Arrival: Ambulatory 07:24 Acuity: DEVONTE 4 ch Triage Assessment: 07:45 General: Appears in no apparent distress. comfortable, Behavior is calm, cooperative, ch appropriate for age. Pain: Complains of pain in right leg. 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 LMP N/A - Post-menopause Historical: - Allergies: 07:45 Gluten Protein; ch - Home Meds: 07:45 Lantus 18 U subcutaneous soln daily [Active]; Humalog 100 unit/mL Sub-Q soln [Active]; ch lisinopril 5 mg Oral tab 1 tab once daily [Active]; bupropion HCl 150 mg Oral TbER once daily [Active]; aspirin 81 mg Oral chew 1 tab once daily [Active]; pantoprazole 40 mg Oral TbEC 1 tab 2 times per day [Active]; Lyrica Oral 150 mg 2 times per day [Active]; lorazepam 1 mg Oral tab twice a day [Active]; Vasculera 630 mg Oral tab daily [Active]; cyclobenzaprine 10 mg Oral tab twice a day [Active]; ferrous sulfate 325 mg (65 mg iron) Oral TbEC twice a day [Active]; metoprolol succinate 25 mg Oral Tb24 1 tab once daily [Active]; duloxetine 60 mg Oral cpDR 2 caps once daily [Active]; zaleplon 10 mg Oral cap 1 cap once daily [Active]; Rozerem 8 mg Oral tab 1 tab bedtime [Active]; trazodone 50 mg Oral tab nightly [Active]; Myrbetriq 25 mg Oral Tb24 1 tab once daily [Active]; Ferrous Sulfate Oral [Active]; furosemide 20 mg oral tab one to two tabs every morning [Active]; benzonatate 100 mg Oral cap 1 cap twice a day [Active]; Glucagon Emergency Kit (human) 1 mg IM kit 1 mL [Active]; tramadol 50 mg Oral tab 1 tab three times a day [Active]; promethazine 25 mg Oral tab 1 tab q6h prn [Active]; ondansetron HCl 8 mg Oral tab [Active]; Albuterol Inhl [Active]; hydroxyzine HCl 25 mg Oral tab 1 tab twice a day [Active]; diphenoxylate-atropine 2.5-0.025 mg Oral tab 1-2 tablets every 6 hours [Active]; trazodone 50 mg Oral tab 1 tab nightly [Active]; lorazepam 1 mg Oral tab 1 tab 3 times per day [Active]; Carafate 100 mg/mL Oral susp 10 mL three times a day [Active]; nitroglycerin 0.4 mg SL subl 1 tab every 5 minutes [Active]; amoxicillin and tylenol #3 for dental procedure [Active]; Claritin 10 mg Oral tab 1 tab once daily [Active]; prevagen ex Str. [Active]; super B complex [Active]; k2 100 mcg bid [Active]; Glucosamine Oral [Active]; [place] 120 mg daily [Active]; Cinnamon 500 mg Oral cap 2 cap daily [Active]; D3 2000 IU 2 per day [Active]; multivitamin Oral cap [Active]; Vitamin E Oral [Active]; - PMHx: 07:45 Depression; Anxiety; Arthritis; Diabetes - IDDM; Esophagitis; Fibromyalgia; ch gastroporeisis; GERD; heart disease; High Cholesterol; Hypertension; Myocardial infarction; neuropathy; raynaud's; sleep disorder; Tachycardia; - PSHx: 07:45 Tonsillectomy; Gastric Bypass; Cholecystectomy; ; Rt femur repair; Cataract sx ch lucia; R femur, knee, tibia, foot; bone spur L shoulder; R roator cuff repair; R wrist cyst removed; L hand trigger finger release; R hand trigger finger release; carpel tunnel repair; - Immunization history:: Adult Immunizations up to date. - Social history:: Smoking status: Patient uses tobacco products, smokes one pack cigarettes per day. Patient/guardian denies using alcohol, street drugs. Screenin:47 Abuse screen: Denies threats or abuse. Denies injuries from another. Nutritional ch screening: No deficits noted. Tuberculosis screening: No symptoms or risk factors identified. Fall Risk None identified. Assessment: 07:47 General: Appears in no apparent distress. comfortable, Behavior is calm, cooperative, ch appropriate for age. Pain: Complains of pain in right leg and anterior aspect of right ankle and right knee Pain currently is 8 out of 10 on a pain scale. 08:31 Reassessment: Patient appears in no apparent distress at this time. Patient and/or ch family updated on plan of care and expected duration. Pain level reassessed. Patient is alert, oriented x 3, equal unlabored respirations, skin warm/dry/pink. Patient states symptoms have not improved. Vital Signs: 07:45 BP 136 / 74; Pulse 68; Resp 18; Temp 98.5; Pulse Ox 99% on R/A; Weight 101.15 kg; ch Height 5 ft. 4 in. (162.56 cm); Pain 8/10; 08:31 BP 142 / 78; Pulse 62; Resp 18; Temp 98.3; Pulse Ox 99% on R/A; Pain 7/10; ch 07:45 Body Mass Index 38.28 (101.15 kg, 162.56 cm) ED Course: 07:05 Patient arrived in ED. sb2 07:13 Maxine Guthrie RN is Primary Nurse. ch 07:13 Leanne Garrison FNP-C [facility]. kb 07:13 Junaid Garber MD is Attending Physician. kb 07:25 Triage completed. ch 07:45 Arm band placed on left wrist. Patient placed in an exam room, on a stretcher. ch 07:47 No apparent distress. Resting quietly. ch 07:47 Patient has correct armband on for positive identification. Bed in low position. Call ch light in reach. Side rails up X 1. Warm blanket given. 07:47 No provider procedures requiring assistance completed. Patient did not have IV access ch during this emergency room visit. 08:08 X-ray completed. Portable x-ray completed in exam room. Patient tolerated procedure la2 well. 08:09 Ankle Right 3 View XRAY In Process Unspecified. EDMS 08:09 Knee Right 3 View XRAY In Process Unspecified. EDMS Administered Medications: 08:10 Drug: Ibuprofen 800 mg Route: PO; 08:30 Follow up: Response: No adverse reaction; Pain is decreased Outcome: 08:16 Discharge ordered by . cipriano 08:31 Discharged to home ambulatory, with family. 08:31 Condition: good 08:31 Discharge instructions given to patient, Instructed on discharge instructions, follow up and referral plans. Demonstrated understanding of instructions, follow-up care. 08:32 Patient left the ED. Signatures: Dispatcher [employer] EDLeanne Golden, [employer]ER-C NICOLAS-Maxine Arora RN RN Katelin Vazquez2 Stephenie Canela sb2
[2018-01-22 08:36] VITALS: O2SAT 99
[2018-01-22 08:38] VITALS: BP 142/78; TEMP 98.3
--- NOTE | 2018-01-22 10:24 | RAD REPORT ---
EXAM DESCRIPTION: RAD - Ankle Right 3 View - 01/22/2018 8:11 am CLINICAL HISTORY: Trip and fall, ankle pain COMPARISON: None. FINDINGS: No gross fracture deformity seen and there is no dislocation. There is slight cortical irr egularity at the distal tip of the fibula. This is probably normal variant though a very small avulsi on fracture would be possible. Lateral soft tissues are mildly prominent. No other evidence for fract ure. There is no dislocation or periosteal reaction. No joint effusion seen. No joint space narrowing . Small plantar and Achilles spurs are present. There are mild degenerative changes in the midfoot an d ankle joint. IMPRESSION: Lateral soft tissue swelling with no gross fracture deformity identifiable. Subtle cortical irregularity at the tip of the fibula is probably baseline for the patient though a v anabel small bone avulsion would be possible.
--- NOTE | 2018-01-22 10:26 | RAD REPORT ---
EXAM DESCRIPTION: RAD - Knee Right 3 View - 01/22/2018 8:11 am CLINICAL HISTORY: Knee pain, twisting injury COMPARISON: January 2017 FINDINGS: No fracture, dislocation or periosteal reaction.No measurable joint effusion. Joint spaces are not narrowed though there is mild marginal spurring present. Subcortical cystic changes are pres ent in the tibial spine similar to 2017. Arterial calcifications are present. No foreign body or othe r soft tissue abnormality. IMPRESSION: Knee degenerative changes are present as detailed. No acute finding identifiable. No significant change from the 2017 study. Clinical concerns for internal derangement or occult bony injury could be further assessed with MR im aging.
== END 2018-01-22 08:32 | disposition home or self-care (01) ==
LOC: ER 07:02
DX: M25.561 Pain in right knee (principal); I10 Essential (primary) hypertension; E78.00 Pure hypercholesterolemia, unspecified; E11.9 Type 2 diabetes mellitus without complications; F34.1 Dysthymic disorder; I25.2 Old myocardial infarction; Z91.018 Allergy to other foods; Z79.82 Long term (current) use of aspirin; Z79.4 Long term (current) use of insulin
CPT/HCPCS: 99283

== ENCOUNTER 2018-02-13 15:08 | Emergency (ER) | payer MEDICARE ==
--- OUTSIDE RECORDS SUMMARY | 2018-02-13 15:11 | XMS REPORT | Clinical Summary ---
:1965 Author Organization [facility] Address [address] [place] [address] Phone Care Team Providers Name Role Phone [...] 06/24/2017 Anesthesia Event Sly Malloy MD after 02/12/2017 Social History Tobacco Use Types Packs/Day Years [...] Trigger finger of left CDT thumb after 02/12/2017 Results POC-Glucose meter (06/25/2017 2:32 PM)Only the most recent of2 resultswithin the time period is included. Component Value Ref Range POC-Glucose Meter 200 (H)Comment: TESTED AT [address] 70 - 110 mg/[place] [id number] Specimen Performing Laboratory Blood [facility] [address] [address] ECG 12 lead (06/25/2017 1:04 PM) Specimen Performing Laboratory GE MUSE Narrative Ventricular Rate 76 BPM Atrial Rate 76 BPM P-R Interval 156 ms QRS Duration 86 ms Q-T Interval 382 ms QTC Calculation(Bazett) 429 ms P [place] 7 degrees R [place] 59 degrees T [place] 28 degrees Normal sinus rhythm Normal ECG No previous ECGs available Confirmed by MD NASSAR CHUNG-SHIN ([id number]) on 07/06/2017 10:28:29 AM Procedure Note Interface, External Ris In - 07/06/2017 10:28 AM CDT Ventricular Rate 76 BPM Atrial Rate 76 BPM P-R Interval 156 ms QRS Duration 86 ms Q-T Interval 382 ms QTC Calculation(Bazett) 429 ms P [place] 7 degrees R [place] 59 degrees T [place] 28 degrees Normal sinus rhythm Normal ECG [...] PATIENTS. Specimen Performing Laboratory Blood - Arm, [address] [address] Glucose (06/25/2017 11:38 AM) Component Value Ref Range Glucose 353 (H) 70 - 105 mg/dL Specimen Performing Laboratory Blood - Arm, [address] [address] Electrolytes (06/25/2017 11:38 AM) Component Value Ref Range Sodium 136 136 - 145 meq/L Potassium 5.4 (H) 3.5 - 5.1 meq/L Chloride 102 98 - 107 meq/L CO2 25 22 - 29 meq/L Specimen Performing Laboratory Blood - Arm, [address] [address] POC-Hemoglobin meter (06/25/2017 11:34 AM) Component Value Ref Range POC-Hemoglobin Meter 12.1Comment: TESTED AT [address] 12.0 - 15.0 g/ dL [facility] [id number] Specimen Performing Laboratory Blood [address] [address] POCT , urine (06/25/2017 10:56 AM) Component Value Ref Range Test Urine, POC Negative Control line present?, POC Yes Background clear?, POC Yes UPT Cassette Lot #, POC [id number] UPT Cassette Expiration Date, POC 11/03/18 Specimen Performing Laboratory Urine after 02/12/2017
--- OUTSIDE RECORDS SUMMARY | 2018-02-13 16:03 | XMS REPORT | Continuity of Care Document ---
:1965 Author Organization Interface Problems Problem Status Onset Classification Date Comments Source Date Reported PAIN IN Active [facility] ABDOMEN/NAUSEA/TIGHT [facility] Medical ENESS IN [facility] BDDC/GASTROESOPHAGEA Active [facility] L REFLUX DISEASE [address] [place] [address] VOMITING Active [address] GASTROPARESIS Active [address] CHEST PAIN Active [address] R/O ACS Active [address] SOB/CHEST PAIN Active [address] HYPERGLYCEMIA Active [facility] DEHYDRATION [address] [place] [address] [facility] [address] N/V Active [address] VOMITTING, DIABETIC, Active [facility] HEART PT [address] [place] [address] ACS R/O AND Active [facility] PERSISTANT N/V [address] [place] [address] NAUSEA, VOMITTING Active [address] 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 MRSA<sup>1, 2, 3, Active Problem 08/15/2013 4Problem [facility] 4</sup> 013 added by [facility] Expert. MRSA<sup>1, Active Problem 04/05/2013 4Problem [facility] </sup><sup>2, 013 added by [facility] </sup><sup>3, [facility] </sup><sup>4</sup> Expert. 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 [facility] infarction [address] [place] [address] [place] - Myocardial Resolved Problem 04/05/[address] DSU/ REFLUX Active [address] MORBID OBESITY Active [address] Intertrochanteric Active Problem 02/04/2018 [facility] fracture of right [id number] hip Fracture of right Active Problem 02/04/2018 [facility] tibia [id number] Acid reflux Resolved Problem 04/05/2013 [facility] Anemia Resolved Problem 04/05/2013 [facility] Anxiety Resolved Problem 04/05/2013 [facility] Arthritis Resolved Problem 04/05/2013 [facility] Depression Resolved Problem 04/05/2013 [facility] Diabetes mellitus Resolved Problem 04/05/[address] Edema of lower Resolved Problem 04/05/[address] [facility] Fibromyalgia Resolved Problem 04/05/2013 [facility] Hyperlipidemia Resolved Problem 04/05/2013 [facility] Hypertension Resolved Problem 04/05/2013 [facility] Acid reflux Resolved Problem 08/15/2013 [facility] Anemia Resolved Problem 08/15/2013 [facility] Anxiety Resolved Problem 08/15/2013 [facility] Arthritis Resolved Problem 08/15/2013 [facility] Depression Resolved Problem 08/15/2013 [facility] Diabetes mellitus Resolved Problem 08/15/[address] Edema of lower Resolved Problem 08/15/[address] [facility] Fibromyalgia Resolved Problem 08/15/2013 [facility] Gastric ulcer Resolved Problem 08/15/2013 [facility] Hyperlipidemia Resolved Problem 08/15/2013 [facility] Hypertension Resolved Problem 08/15/2013 [facility] Neuropathy Resolved Problem 08/15/2013 [facility] Gastric ulcer Resolved Problem 04/05/2013 [facility] Neuropathy Resolved Problem 04/05/2013 [facility] MORBID OBESITY Active [facility] CHEST PAIN NOS Active [facility] NAUSEA WITH VOMITING Active [facility] OTHER GENERAL Active [facility] Medications Medication Details Route Status Patient Ordering Order Source Instructions Provider Date Zofran 4 mg 4 mg=1 tab, Active De La Garza 08/13/ [facility] oral tablet PO, BID, # 10 2012 Medical tab, 0 Center Refill(s) Reglan 10 mg 10 mg=1 tab, Active De La Garza [facility] oral tablet PO, QID, # 40 2012 Medical tab, 0 Center Refill(s) IDS med 5 mg, 1 mL, Inactive [facility] Rate: 30 2012 Medical ml/hr, Infuse Center over: 2 minutes, Route: IV, Total Volume: 1, Stop date: 08/13/13 16:00:00 NS (Bolus) IV 1,000 mL, Inactive De La Garza [facility] 1,000 mL Rate: 1,000 2012 Medical ml/hr, Infuse Center over: 1 hr, Route: IV, Dosing Weight 81.818 kg, Total Volume: 1,000, Priority: STAT, Start date: 08/13/13 13:56:00, Duration: 1 doses or times, Stop date: 08/13/13 14:55:00, Bolus Dose
Bolu s Dose Phenergan 25 mg, 1 mL, Inactive [facility] Route: IVPB2012 Medical Drug form: [place] INJ, ONCE, Dosing Weight 81.818, kg, Priority: STAT, Start date: 08/13/13 13:17:00, Stop date: 08/13/13 13:17:00Do not give IV push. (Same as: Phenergan) Zofran 4 mg, 2 mL, Inactive [facility] Route: IVP2012 Medical Drug form: [place] INJ, ONCE, Dosing Weight 81.818, kg, Priority: STAT, Start date: 08/13/13 12:41:00, Stop date: 08/13/13 12:41:00(Same as: Zofran) morphine 4 mg, 1 mL, Inactive [facility] Garza [facility] Sulfate Route: IVP2012 Medical Drug form: [place] INJ, ONCE, Dosing Weight 81.818, kg, Priority: STAT, Start date: 08/13/13 12:40:00, Stop date: 08/13/13 12:40:00(Same as:MORPhine Sulfate) Sodium Chloride 1,000 mL, Inactive [facility] 0.9% (Bolus) IV Rate: 1,000 2012 Medical 1,000 mL ml/hr, Infuse Center over: 1 hr, Route: IV, Dosing Weight 81.818 kg, Total Volume: 1,000, Priority: STAT, Start date: 08/13/13 11:52:00, Duration: 1 doses or times, Stop date: 08/13/13 12:51:00, Bolus Dose
Bolu s Dose normal saline 1,000 mL, Inactive [facility] 0.9% IV 1,000 Rate: 500 2012 Medical mL ml/hr, Infuse [place] over: 2 hr, Route: IV, Dosing Weight 86.364 kg, Total Volume: 1,000, Start date: 07/14/13 14:02:00, Duration: 4 hr, Stop date: 07/14/13 18:01:00 Reglan 10 mg 10 mg, 1 tab, Inactive [facility] oral tablet Route: PO, 2012 Medical Drug form: [place] TAB, TID-Before Meals, Dosing Weight 86.364, kg, Start date: 07/14/13 11:30:00, Duration: 30 day, Stop date: 08/13/13 7:30:00(Same as: Reglan) Take 30 min before meals Levemir 15 unit, 0.[address] [facility] mL, Route: Active 2012 Medical SUB-Q, Drug Center form: INJ, BID, Dosing Weight 86.364, kg, Start date: 07/13/13 21:00:00, Duration: 30 day, Stop date: 08/12/13 9:00:00Same as Levemir "single patient use only" pneumococcal 0.5 ml, No Longer [facility] 23-valent Route: IM, Active 2012 Medical vaccine Drug Form: [place] INJ, Start date: 07/13/13 9:00:00, Stop date: 07/13/13 9:00:00 influenza virus 0.5 ml, No Longer [facility] vaccine, Route: IM, Active 2012 Medical inactivated Drug Form: [place] SUSP, Start date: 07/13/13 9:00:00, Stop date: 07/13/13 9:00:00 lisinopril 20 mg, 1 tab, No Longer [facility] Route: PO, Active 2012 Medical Drug form: [place] TAB, Daily, Dosing Weight 86.364, kg, Start date: 07/13/13 9:00:00, Duration: 30 day, Stop date: 08/11/13 9:00:00(Same as: Prinivil, Zestril) metoprolol 50 mg, Route: No Longer [facility] [place] tartrate PO, Drug Active 2012 Medical form: TAB, Center Daily, Dosing Weight 86.364, kg, Start date: 07/13/13 9:00:00, Duration: 30 day, Stop date: 08/11/13 9:00:00 Lyrica 150 mg, 2 No Longer [facility] [place] cap, Route: Active 2012 Medical PO, Drug Center form: CAP, BID, Dosing Weight 86.364, kg, Start date: 07/13/13 9:00:00, Duration: 30 day, Stop date: 08/11/13 17:00:00(Same as: Lyrica) potassium 20 mEq, 1 No Longer [facility] [place] chloride tab, Route: Active 2012 Medical PO, Drug Center form: ERTAB, Daily, Dosing Weight 86.364, kg, Start date: 07/13/13 9:00:00, Duration: 30 day, Stop date: 08/11/13 9:00:00(Same as: K-Dur 20) "Do Not Crush" With food and full glass of water Effient 10 mg, 1 tab, No Longer [facility] [place] Route: PO, Active 2012 Medical Drug form: Center TAB, Daily, Dosing Weight 86.364, kg, Start date: 07/13/13 9:00:00, Duration: 30 day, Stop date: 08/11/13 9:00:00Same as Effient For patients < 75 years old, > 60kg, without history of TIA/Ischemic stroke and without likely bypass surgery Protonix 40 mg, 1 tab, No Longer [facility] Route: PO, Active 2012 Medical Drug form: Center ECTAB, BID-Before Meals, Dosing Weight 86.364, kg, Start date: 07/13/13 9:00:00, Stop date: 08/11/13 16:30:00Table t should not be chewed or crushed. (Same as: Protonix) meloxicam 7.5 mg, No Longer [facility] Route: PO, Active 2012 Medical Drug form: Center TAB, BID, Dosing Weight 86.364, kg, Start date: 07/13/13 9:00:00, Duration: 30 day, Stop date: 08/11/13 17:00:00 magnesium oxide 400 mg, [address] [facility] tab, Route: Active 2012 Medical PO, Drug Center form: TAB, Daily, Dosing Weight 86.364, kg, Start date: 07/13/13 9:00:00, Duration: 30 day, Stop date: 08/11/13 9:00:00(Same as: Mag-Ox 400) Magnesium oxide [id number] elemental magnesium Dose=____mg magnesium oxide (___mg elemental magnesium) furosemide 40 40 mg, 1 tab, No Longer [facility] mg oral tablet Route: PO, Active 2012 Medical Drug form: Center TAB, Daily, Dosing Weight 86.364, kg, Start date: 07/13/13 9:00:00, Duration: 30 day, Stop date: 08/11/13 9:00:00(Same as: Lasix) May cause GI upset. Give with food or milk. ferrous sulfate 325 mg, [address] [facility] tab, Route: Active 2012 [facility] PO, Drug Center form: ECTAB, TID, Dosing Weight 86.364, kg, Start date: 07/13/13 9:00:00, Duration: 30 day, Stop date: 08/11/13 17:00:00Give with food. "Do Not Crush" clonazepam 0.5 mg, [address] [facility] tab, Route: Active 2012 [facility] PO, Drug Center form: TAB, TID, Dosing Weight 86.364, kg, Start date: 07/13/13 9:00:00, Duration: 30 day, Stop date: 08/11/13 17:00:00(Same As: Klonopin) Insulin regular 5 unit, 0.[address] [facility] mL, Route: Active 2012 [facility] SUB-Q, Drug Center form: SOLN, TID-Before Meals, Dosing Weight 86.364, kg, Start date: 07/13/13 7:30:00, Duration: 30 day, Stop date: 08/11/13 16:30:00(Same as: Humulin R) Roll in palms of hands gently; Do not shake vigorously. "single patient use only" (Restricted to patients requiring a dose > 60 units) Stable for 28 days at room temperature Expires in days from _Date Reglan 10 mg, 2 mL, No Longer [facility] [place] [facility] Route: IVP, Active 2012 Medical Drug form: Center INJ, Q6H, Dosing Weight 86.364, kg, Start date: 07/13/13 0:00:00, Duration: 30 day, Stop date: 08/11/13 18:00:00(Same as: Reglan) normal saline 1,000 mL, No Longer [facility] [place] 0.9% IV 1,000 Rate: 200 Active 2012 [facility] mL ml/hr, Infuse [place] over: 5 hr, Route: IV, Dosing Weight 86.364 kg, Total Volume: 1,000, Start date: 07/12/13 21:08:00, Duration: 3 doses or times, Stop date: 07/13/13 12:07:00 metoprolol 50 mg, 1 tab, No Longer [facility] tartrate Route: PO, Active 2012 Medical Drug form: Center TAB, Q12H, Dosing Weight 86.364, kg, Start date: 07/12/13 21:00:00, Duration: 30 day, Stop date: 08/11/13 9:00:00(Same as: Lopressor) Levemir 12 unit, 0.[address] [facility] mL, Route: Active 2012 [facility] SUB-Q, Drug Center form: INJ, BID, Dosing Weight 86.364, kg, Start date: 07/12/13 21:00:00, Duration: 30 day, Stop date: 08/11/13 9:00:00Same as Levemir "single patient use only" Cymbalta 120 mg, [address] [facility] cap, Route: Active 2012 Medical PO, Drug Center form: DRC, Bedtime, Dosing Weight 86.364, kg, Start date: 07/12/13 21:00:00, Duration: 30 day, Stop date: 08/10/13 21:00:00Non Formulary Drug (Same as: Cymbalta) (Do Not Crush) ProAir HFA 90 2 puff, No Longer [facility] mcg/inh Route: Active 2012 Medical inhalation INHALATION, [place] aerosol with Drug Form: adapter AERO/A, Dosing Weight 86.364, kg, QID, PRN Shortness of breath, Start date: 07/12/13 20:09:00, Duration: 30 day, Stop date: 08/11/13 20:08:00Albut yecenia 90 microgram/inh 8gm HFA Same as: Ventelida Proventil aspirin 81 mg 81 mg, 1 tab, No Longer [facility] tablet, enteric Route: PO, Active 2012 Medical coated Drug form: [place] ECTAB, Daily, Dosing Weight 86.364, kg, Start date: 07/12/13 20:00:00, Duration: 30 day, Stop date: 08/11/13 9:00:00Do not crush or chew. (Same As: Ecotrin) glucagon 1 mg, Route: No Longer [facility] IM, Drug Active 2012 Medical form: [place] PDR/INJ, PRN, Dosing Weight 86.364, kg, PRN Blood Glucose Results, Start date: 07/12/13 18:26:00, Duration: 30 day, Stop date: 08/11/13 18:25:00 Dextrose 50% 12.5 gm, [address] [facility] Syringe mL, Route: Active 2012 [facility] IVP, Drug Center Form: INJ, Dosing Weight 86.364, kg, PRN, PRN Blood Glucose Results, Start date: 07/12/13 18:26:00, Duration: 30 day, Stop date: 08/11/13 18:25:00 insulin aspart 4 unit, 0.04 No Longer [facility] mL, Route: Active 2012 Medical SUB-Q, Drug Center form: SOLN, TID-Before Meals, Dosing Weight 86.364, kg, PRN Blood Glucose Results, Start date: 07/12/13 18:26:00, Duration: 30 day, Stop date: 08/11/13 18:25:00Roll in palms of hands gently; Do not shake vigorously. (Same as: NovoLog) "single patient use only" Stable for 28 days at room temperature. Expires in days from _Date tramadol 50 mg 50 mg, 1 tab, No Longer [facility] oral tablet Route: PO, Active 2012 Medical Drug form: Center TAB, Q4H, Dosing Weight 86.364, kg, PRN as needed for pain, Start date: 07/12/13 18:24:00, Duration: 30 day, Stop date: 08/11/13 18:23:00Not to exceed 400mg/day. (Same As: Ultram) acetaminophen-h 1 tab, Route: No Longer [facility] ydrocodone 325 PO, Drug Active 2012 Medical mg-5 mg oral Form: TAB, Center tablet Dosing Weight 86.364, kg, Q4H, PRN Pain, Start date: 07/12/13 18:23:00, Duration: 30 day, Stop date: 08/11/13 18:22:00(Same as: [place] 325/5) Do not exceed 4gm/day of acetaminophen . Flexeril 10 mg, 1 tab, No Longer [facility] Route: PO, Active 2012 Medical Drug form: Center TAB, TID, Dosing Weight 86.364, kg, PRN Spasm, Start date: 07/12/13 18:23:00, Duration: 30 day, Stop date: 08/11/13 18:22:00(Same As: Flexeril) benzonatate 100 mg, [address] [facility] cap, Route: Active 2012 Medical PO, Drug Center form: CAP, TID, Dosing Weight 86.364, kg, PRN as needed for cough, Start date: 07/12/13 18:23:00, Duration: 30 day, Stop date: 08/11/13 18:22:00(Same As: Oleksandr Francis) "Do Not Crush" Saline Flush 5 ml, Route: No Longer [facility] 0.9% IVP, Drug Active 2012 Medical Form: INJ, Center Dosing Weight 86.364, kg, PRN, PRN Line Flush, Start date: 07/12/13 18:22:00, Duration: 30 day, Stop date: 08/11/13 18:21:00(Same as: BD Posiflush) ondansetron 4 mg, 2 mL, No Longer [facility] Route: IVP, Active 2012 Medical Drug form: Center INJ, Q8H, Dosing Weight 86.364, kg, PRN Nausea & Vomiting, Start date: 07/12/13 18:22:00, Duration: 30 day, Stop date: 08/11/13 18:21:00(Same as: Zofran) aspirin 81 mg 81 mg, 1 tab, Active [facility] tablet, enteric PO, Daily, 0 2012 Medical coated tab, Center Substitution Allowed, ECTAB Klor-Con M20 20 mEq, [address] [facility] oral tablet, tab, PO, Active 2012 Medical extended Daily, 180 Center release tab, Substitution Allowed, ERTAB furosemide 40 40 mg, 1 tab, No Longer [facility] mg oral tablet PO, Daily, 30 Active 2012 Medical tab, Center Substitution Allowed, TAB benzonatate 100 PO, TID, PRN, Active [facility] mg oral capsule 1 to 2 tabs, 2012 Medical prn, Center Substitution Allowed
1 to 2 tabs metoprolol 50 mg, 1 tab, No Longer [facility] tartrate 50 mg PO, Daily, Active 2012 Medical oral tablet 180 tab, Center Substitution Allowed, TAB Reglan 10 mg, 2 mL, Inactive [facility] Route: IVP, 2012 Medical Drug form: [place] INJ, ONCE, Dosing Weight 86.364, kg, Priority: STAT, Start date: 07/12/13 12:12:00, Stop date: 07/12/13 12:12:00(Same as: Reglan) Zofran 4 mg, Route: Inactive [facility] 07/[facility] IVP, Drug 2012 Medical form: INJ, Center ONCE, Dosing Weight 86.364, kg, Priority: STAT, Start date: 07/12/13 10:52:00, Stop date: 07/12/13 10:52:00 morphine 4 mg, Route: Inactive [facility] Sulfate IVP, Drug 2012 Medical form: INJ, Center ONCE, Dosing Weight 86.364, kg, Priority: STAT, Start date: 07/12/13 10:51:00, Stop date: 07/12/13 10:51:00 Zofran 4 mg, 2 mL, Inactive [facility] 07[facility]12[facility] Route: IVP, 2012 Medical Drug form: Center INJ, ONCE, Dosing Weight 86.364, kg, Priority: STAT, Start date: 07/12/13 10:20:00, Stop date: 07/12/13 10:20:00(Same as: Zofran) NS (Bolus) IV 1,000 mL, Inactive [facility] 1000 mL Rate: 1,000 2013 [facility] ml/hr, Infuse Center over: 1 hr, Route: IV, Dosing Weight 86.364 kg, Total Volume: 1,000, Priority: STAT, Start date: 07/12/13 10:06:00, Duration: 1 doses or times, Stop date: 07/12/13 11:05:00, Bolus Dose
Bolu s Dose [place] 5/325 1 tab, Route: Inactive [facility] oral tablet PO, Dosing 2012 Medical Weight [place] 86.364, kg, ONCE, Start date: 07/12/13 10:05:00, Stop date: 07/12/13 10:05:00 morphine 4 mg, 1 mL, Inactive [facility] 07/12[facility] Sulfate Route: IVP, 2012 Medical Drug form: Center INJ, ONCE, Dosing Weight 86.364, kg, Priority: STAT, Start date: 07/12/13 9:32:00, Stop date: 07/12/13 9:32:00(Same as:MORPhine Sulfate) Zofran ODT 8 mg, Route: Inactive [facility] PO, Drug 2012 Medical form: TABDIS, Center ONCE, Dosing Weight 86.364, kg, Priority: STAT, Start date: 07/12/13 6:56:00, Stop date: 07/12/13 6:56:00 Levemir 10 unit, 0.1 Inactive [facility] 07[facility] mL, Route: 2013 Medical SUB-Q, Drug Center form: INJ, ONCE, Dosing Weight 86.364, kg, Start date: 07/12/13 4:20:00, Stop date: 07/12/13 4:20:00Same as Levemir "single patient use only" Omnipaque 100 mL, Inactive [facility] [place] 350mg/ml Route: IVP, 2013 Medical Drug Form: Center SOLN, Dosing Weight 86.364, kg, ONCALL, STAT, Start date: 07/12/13 4:18:00, Duration: 1 doses or times, Dose=2.2ml/kg , Max monu=[id number] -- "To be infused by Radiology Staff ONLY"
Dos e=2.2ml/kg, Max wpml=[id number] -- "To be infused by Radiology Staff ONLY"(Same as:Omnipaque 350). Sodium Chloride 1,000 mL, Inactive [facility] 0.9% (Bolus) IV Rate: 1,000 2012 Medical 1,000 mL ml/hr, Infuse Center over: 1 hr, Route: IV, Dosing Weight 86.364 kg, Total Volume: 1,000, Priority: STAT, Start date: 07/12/13 4:06:00, Duration: 1 doses or times, Stop date: 07/12/13 5:05:00, Bolus Dose
Bolu s Dose Sodium Chloride 1,000 mL, Inactive [facility] 0.9% (Bolus) IV Rate: 1,000 2012 Medical 1,000 mL ml/hr, Infuse Center over: 1 hr, Route: IV, Dosing Weight 86.364 kg, Total Volume: 1,000, Priority: STAT, Start date: 07/12/13 3:39:00, Duration: 1 doses or times, Stop date: 07/12/13 4:38:00, Bolus Dose
Bolu s Dose Phenergan 12.5 mg, 0.5 Inactive [facility] mL, Route: 2013 Medical IVPB, Drug Center form: INJ, ONCE, Dosing Weight 86.364, kg, Priority: STAT, Start date: 07/12/13 3:38:00, Stop date: 07/12/13 3:38:00Do not give IV push. (Same as: Phenergan) GI cocktail 30 mL, Route: Inactive [facility] PO, Drug 2012 Medical Form: SUSP, Center Dosing Weight 86.364, kg, ONCE, STAT, Start date: 07/12/13 3:37:00, Stop date: 07/12/13 3:37:00G.I. Cocktail=[place] with simethicone 22.5 mL - lidocaine viscous 7.5 mL aspirin 325 mg 325 mg, 1 PO No Longer [facility] [place] tablet, enteric tab, Route: Active 2012 Medical coated PO, Drug Center form: ECTAB, Daily, Dosing Weight 90, kg, Start date: 04/03/13 9:00:00, Duration: 30 day, Stop date: 05/02/13 9:00:00 Effient 10 mg, 1 tab, PO No Longer [facility] Route: PO, Active 2012 Medical Drug form: Center TAB, Daily, Dosing Weight 90, kg, Start date: 04/03/13 9:00:00, Duration: 30 day, Stop date: 05/02/13 9:00:00 Lyrica 150 mg, 2 PO No Longer [facility] [place] cap, Route: Active 2012 Medical PO, Drug Center form: CAP, BID, Dosing Weight 90, kg, Start date: 04/03/13 9:00:00, Duration: 30 day, Stop date: 05/02/13 17:00:00 Protonix 40 mg, 1 tab, PO No Longer [facility] Route: PO, Active 2012 Medical Drug form: [place] ECTAB, BID, Dosing Weight 90, kg, Start date: 04/03/13 9:00:00, Duration: 30 day, Stop date: 05/02/13 17:00:00 metoclopramide 10 mg, 1 tab, PO No Longer [facility] [place] 10 mg oral Route: PO, Active 2012 Medical tablet Drug form: [place] TAB, TID, Dosing Weight 90, kg, Start date: 04/03/13 9:00:00, Duration: 30 day, Stop date: 05/02/13 17:00:00 meloxicam 7.5 mg, 1 PO No Longer [facility] tab, Route: Active 2012 Medical PO, Drug Center form: TAB, BID, Dosing Weight 90, kg, Priority: Routine, Start date: 04/03/13 9:00:00, Duration: 30 day, Stop date: 05/02/13 17:00:00 lisinopril 20 mg, Route: PO No Longer [facility] PO, Drug Active 2012 Medical form: TAB, Center Daily, Dosing Weight 90, kg, Start date: 04/03/13 9:00:00, Duration: 30 day, Stop date: 05/02/13 9:00:00 Levemir 12 unit, SUB-Q No Longer [facility] Route: SUB-Q, Active 2012 Medical BID, Dosing Center Weight 90, kg, Start date: 04/03/13 9:00:00, Duration: 30 day, Stop date: 05/02/13 17:00:00 ferrous sulfate 325 mg, 1 PO No Longer [facility] tab, Route: Active 2012 Medical PO, Drug Center form: ECTAB, TID, Dosing Weight 90, kg, Start date: 04/03/13 9:00:00, Duration: 30 day, Stop date: 05/02/13 17:00:00 clonazepam 0.5 mg, 1 PO No Longer [facility] tab, Route: Active 2012 Medical PO, Drug Center form: TAB, TID, Dosing Weight 90, kg, Start date: 04/03/13 9:00:00, Duration: 30 day, Stop date: 05/02/13 17:00:00 NovoLog 6 unit, 0.06 SUB-Q No Longer [facility] mL, Route: Active 2012 Medical SUB-Q, Drug Center form: SOLN, TID-Before Meals, Dosing Weight 90, kg, Start date: 04/03/13 7:30:00, Duration: 30 day, Stop date: 05/02/13 16:30:00 heparin 5000 5,000 unit, 1 SUB-Q No Longer [facility] units/mL mL, Route: Active 2012 Medical injectable SUB-Q, Drug Center solution form: INJ, Q8H, Dosing Weight 90, kg, Start date: 04/03/13 0:00:00, Duration: 30 day, Stop date: 05/02/13 16:00:00 Cymbalta 120 mg, 2 PO No Longer [facility] cap, Route: Active 2012 Medical PO, Drug Center form: DRC, Bedtime, Dosing Weight 90, kg, Start date: 04/02/13 23:30:00, Duration: 30 day, Stop date: 05/02/13 21:00:00 Zocor 40 mg, 1 tab, PO No Longer [facility] Route: PO, Active 2012 Medical Drug form: [place] TAB, Bedtime, Dosing Weight 90, kg, Start date: 04/02/13 21:00:00, Duration: 30 day, Stop date: 05/01/13 21:00:00 Cymbalta 60 mg, 1 cap, PO No Longer [facility] Route: PO, Active 2012 Medical Drug form: [place] DRC, Bedtime, Dosing Weight 90, kg, Start date: 04/02/13 21:00:00, Duration: 30 day, Stop date: 05/01/13 21:00:00 magnesium oxide 400 mg, 1 PO No Longer [facility] tab, Route: Active 2012 Medical PO, Drug Center form: TAB, Daily, Dosing Weight 90, kg, Priority: NOW, Start date: 04/02/13 20:45:00, Duration: 30 day, Stop date: 05/02/13 9:00:00 Levemir 12 unit, 0.12 SUB-Q No Longer [facility] mL, Route: Active 2012 Medical SUB-Q, Drug Center form: INJ, BID, Dosing Weight 90, kg, Start date: 04/02/13 20:45:00, Duration: 30 day, Stop date: 05/02/13 17:00:00 hydrALAZINE 10 mg, 0.5 IVP No Longer [facility] mL, Route: Active 2012 Medical IVP, Drug Center form: INJ, Q4H, Dosing Weight 90, kg, PRN Hypertension, Start date: 04/02/13 20:37:00, Duration: 30 day, Stop date: 05/02/13 20:36:00 lisinopril 20 mg, 1 tab, PO No Longer [facility] Route: PO, Active 2012 Medical Drug form: Center TAB, Daily, Dosing Weight 90, kg, Start date: 04/02/13 20:30:00, Duration: 30 day, Stop date: 05/02/13 9:00:00 metoprolol 12.5 mg, 1 PO No Longer [facility] tartrate ea, Route: Active 2012 Medical PO, Drug Center form: TAB, BID, Dosing Weight 90, kg, Start date: 04/02/13 20:30:00, Duration: 30 day, Stop date: 05/02/13 17:00:00 insulin aspart 8 unit, 0.08 SUB-Q No Longer [facility] mL, Route: Active 2012 Medical SUB-Q, Drug Center form: SOLN, TID-Before Meals, Dosing Weight 90, kg, PRN Blood Glucose Results, Start date: 04/02/13 20:30:00, Duration: 30 day, Stop date: 05/02/13 20:29:00 glucagon 1 mg, Route: IM No Longer [facility] IM, Drug Active 2012 Medical form: Center PDR/INJ, PRN, Dosing Weight 90, kg, PRN Blood Glucose Results, Start date: 04/02/13 20:30:00, Duration: 30 day, Stop date: 05/02/13 20:29:00 Dextrose 50% 25 gm, 50 mL, IVP No Longer [facility] Syringe Route: IVP, Active 2012 Medical Drug Form: Center INJ, Dosing Weight 90, kg, PRN, PRN Blood Glucose Results, Start date: 04/02/13 20:30:00, Duration: 30 day, Stop date: 05/02/13 20:29:00 Insulin regular 8 unit, SUB-Q No Longer [facility] Route: SUB-Q, Active 2012 Medical TID-Before Center Meals, Dosing Weight 90, kg, PRN Blood Glucose Results, Start date: 04/02/13 20:29:00, Duration: 30 day, Stop date: 05/02/13 20:28:00 glucagon 1 mg, Route: IM No Longer [facility] IM, PRN, Active 2012 Medical Dosing Weight Center 90, kg, PRN Blood Glucose Results, Start date: 04/02/13 20:29:00, Duration: 30 day, Stop date: 05/02/13 20:28:00 Dextrose 50% 50 mL, Route: IVP No Longer [facility] Syringe IVP, Dosing Active 2012 Medical Weight 90, Center kg, PRN, PRN Blood Glucose Results, Start date: 04/02/13 20:29:00, Duration: 30 day, Stop date: 05/02/13 20:28:00 Zofran 4 mg, 2 mL, IV No Longer [facility] Route: IV, Active 2012 Medical Drug form: [place] INJ, Q8H, Dosing Weight 90, kg, PRN Nausea, Start date: 04/02/13 20:29:00, Duration: 30 day, Stop date: 05/02/13 20:28:00 Maalox Advanced 30 mL, Route: PO No Longer [facility] Regular PO, Drug Active 2012 Medical Strength SUSP Form: SUSP, [place] Dosing Weight 90, kg, QID, PRN Indigestion, Start date: 04/02/13 20:28:00, Duration: 30 day, Stop date: 05/02/13 20:27:00 Flexeril 10 mg, 1 tab, PO No Longer [facility] Route: PO, Active 2012 Medical Drug form: [place] TAB, TID, Dosing Weight 90, kg, PRN Spasm, Start date: 04/02/13 20:22:00, Duration: 30 day, Stop date: 05/02/13 20:21:00 acetaminophen-h 1 tab, Route: PO No Longer [facility] ydrocodone 325 PO, Drug Active 2012 Medical mg-5 mg oral Form: TAB, [place] tablet Dosing Weight 90, kg, Q4H, PRN Pain, Start date: 04/02/13 20:22:00, Duration: 30 day, Stop date: 05/02/13 20:21:00 Phenergan 12.5 mg, 0.5 IVPB No Longer [facility] mL, Route: Active 2012 Medical IVPB, Drug Center form: INJ, ONCE, Dosing Weight 90, kg, Start date: 04/02/13 20:11:00, Stop date: 04/02/13 20:11:00 morphine 4 mg, 1 mL, IVP No Longer [facility] Sulfate Route: IVP, Active 2012 Medical Drug form: Center INJ, ONCE, Dosing Weight 90, kg, Start date: 04/02/13 20:10:00, Stop date: 04/02/13 20:10:00 Phenergan 12.5 mg, 0.5 IVPB No Longer [facility] mL, Route: Active 2012 Medical IVPB, Drug Center form: INJ, ONCE, Dosing Weight 90, kg, Priority: STAT, Start date: 04/02/13 17:11:00, Stop date: 04/02/13 17:11:00 Zofran 4 mg, 2 mL, IVP No Longer [facility] Route: IVP, Active 2012 Medical Drug form: Center INJ, ONCE, Dosing Weight 90, kg, Priority: STAT, Start date: 04/02/13 16:52:00, Stop date: 04/02/13 16:52:00 nitroglycerin 0.4 mg, 1 SL No Longer [facility] tab, Route: Active 2012 Medical SL, Drug Center form: TAB, Q5Min, Dosing Weight 90, kg, PRN Chest Pain, Priority: STAT, Start date: 04/02/13 16:31:00, Duration: 3 doses or times, Stop date: Limited # of times aspirin 325 mg, 1 PO No Longer [facility] tab, Route: Active 2012 Medical PO, Drug Center form: ECTAB, ONCE, Dosing Weight 90, kg, Priority: STAT, Start date: 04/02/13 16:31:00, Stop date: 04/02/13 16:31:00 morphine 4 mg, 1 mL, IVP No Longer [facility] Sulfate Route: IVP, Active 2012 Medical Drug form: Center INJ, ONCE, Dosing Weight 90, kg, Start date: 04/02/13 16:30:00, Stop date: 04/02/13 16:30:00 erythromycin 1 cap, PO, PO Active [facility] [place] 250 mg oral Q12H, 14 cap, 2012 Medical enteric coated Substitution Center tablet Allowed, ECTAB GI cocktail 30 ml, Route: PO No Longer [facility] PO, Drug Active 2012 Medical Form: SUSP, Center Dosing Weight 90, kg, ONCE, Routine, Start date: 03/08/13 16:26:00, Stop date: 03/08/13 16:26:00 erythromycin 250 mg, 1 PO No Longer [facility] 250 mg oral cap, Route: Active 2012 Medical enteric coated PO, Drug Center tablet form: ECCAP, Q12H, Dosing Weight 90, kg, Start date: 03/08/13 12:00:00, Duration: 30 day, Stop date: 04/07/13 9:00:00 magnesium 2 gm, 50 mL, IVPB No Longer [facility] sulfate Route: IVPB, Active 2012 Medical Drug form: Center INJ, Q2H, Dosing Weight 90, kg, Total Dose=4 gm, Start date: 03/08/13 12:00:00, Duration: 2 doses or times, Stop date: 03/08/13 14:00:00, For Mg=1.5 - 1.7 mg/dL
For Mg=1.5 - 1.7 mg/dL insulin aspart 5 unit, 0.05 SUB-Q No Longer [facility] mL, Route: Active 2012 Medical SUB-Q, Drug Center form: SOLN, ONCE, Dosing Weight 90, kg, Start date: 03/08/13 3:17:00, Stop date: 03/08/13 3:17:00 Zocor 40 mg, 1 tab, PO No Longer [facility] Route: PO, Active 2012 Medical Drug form: Center TAB, Bedtime, Dosing Weight 90, kg, Start date: 03/07/13 21:00:00, Duration: 30 day, Stop date: 04/05/13 21:00:00 Cymbalta 120 mg, 2 PO No Longer [facility] cap, Route: Active 2012 Medical PO, Drug Center form: DRC, Bedtime, Dosing Weight 90, kg, Start date: 03/07/13 21:00:00, Duration: 30 day, Stop date: 04/05/13 21:00:00 Levemir 12 unit, 0.12 SUB-Q No Longer [facility] mL, Route: Active 2012 Medical SUB-Q, Drug Center form: INJ, Q12H, Dosing Weight 90, kg, Start date: 03/07/13 21:00:00, Duration: 30 day, Stop date: 04/06/13 9:00:00 insulin aspart 10 unit, 0.1 SUB-Q No Longer [facility] mL, Route: Active 2012 Medical SUB-Q, Drug Center form: SOLN, ONCE, Dosing Weight 90, kg, Start date: 03/07/13 19:16:00, Stop date: 03/07/13 19:16:00 Lyrica 150 mg, 2 PO No Longer [facility] cap, Route: Active 2012 Medical PO, Drug Center form: CAP, BID, Dosing Weight 90, kg, Start date: 03/07/13 17:00:00, Duration: 30 day, Stop date: 04/06/13 9:00:00 Protonix 40 mg, 1 tab, PO No Longer [facility] Route: PO, Active 2012 Medical Drug form: Center ECTAB, BID, Dosing Weight 90, kg, Start date: 03/07/13 17:00:00, Duration: 30 day, Stop date: 04/06/13 9:00:00 meloxicam 7.5 mg, 1 PO No Longer [facility] tab, Route: Active 2012 Medical PO, Drug Center form: TAB, BID-Meals, Dosing Weight 90, kg, Start date: 03/07/13 17:00:00, Duration: 30 day, Stop date: 04/06/13 8:00:00 Flexeril 10 mg, 1 tab, PO No Longer [facility] Route: PO, Active 2012 Medical Drug form: Center TAB, BID, Dosing Weight 90, kg, Start date: 03/07/13 17:00:00, Duration: 30 day, Stop date: 04/06/13 9:00:00 NovoLog FlexPen 6 unit, 0.06 SUB-Q No Longer [facility] mL, Route: Active 2012 Medical SUB-Q, Drug Center form: SOLN, TID-Before Meals, Start date: 03/07/13 16:30:00, Duration: 30 day, Stop date: 04/06/13 11:30:00 Humalog 6 unit, SUB-Q No Longer [facility] Route: SUB-Q, Active 2012 Medical TID-Before Center Meals, Dosing Weight 90, kg, Start date: 03/07/13 16:30:00, Duration: 30 day, Stop date: 04/06/13 11:30:00 heparin 5,000 unit, 1 SUB-Q No Longer [facility] mL, Route: Active 2012 Medical SUB-Q, Drug Center form: INJ, Q8H, Dosing Weight 90, kg, Start date: 03/07/13 16:00:00, Duration: 30 day, Stop date: 04/06/13 8:00:00 Effient 10 mg, 1 tab, PO No Longer [facility] Route: PO, Active 2012 Medical Drug form: Center TAB, Daily, Dosing Weight 90, kg, Start date: 03/07/13 13:30:00, Duration: 30 day, Stop date: 04/06/13 9:00:00 magnesium oxide 400 mg, 1 PO No Longer [facility] tab, Route: Active 2012 Medical PO, Drug Center form: TAB, Daily, Dosing Weight 90, kg, Start date: 03/07/13 13:30:00, Duration: 30 day, Stop date: 04/06/13 9:00:00 lisinopril 20 mg, 1 tab, PO No Longer [facility] Route: PO, Active 2012 Medical Drug form: Center TAB, Daily, Dosing Weight 90, kg, Start date: 03/07/13 13:30:00, Duration: 30 day, Stop date: 04/06/13 9:00:00 Reglan 5 mg, 1 tab, PO No Longer [facility] Route: PO, Active 2012 Medical Drug form: Center TAB, TID, Dosing Weight 90, kg, Start date: 03/07/13 13:00:00, Duration: 30 day, Stop date: 04/06/13 9:00:00 ferrous sulfate 325 mg, 1 PO No Longer [facility] tab, Route: Active 2012 Medical PO, Drug Center form: ECTAB, TID, Dosing Weight 90, kg, Start date: 03/07/13 13:00:00, Duration: 30 day, Stop date: 04/06/13 9:00:00 clonazepam 0.5 mg, 1 PO No Longer [facility] tab, Route: Active 2012 Medical PO, Drug Center form: TAB, TID, Dosing Weight 90, kg, Start date: 03/07/13 13:00:00, Duration: 30 day, Stop date: 04/06/13 9:00:00 NovoLog 6 unit, SUB-Q No Longer [facility] SUB-Q, Active 2012 Medical TID-Before Center Meals, Substitution Allowed Levemir 12 unit, SUB-Q Active [facility] SUB-Q, BID, 2012 Medical Substitution Center Allowed NS 1,000 mL 1,000 mL, IV No Longer [facility] Rate: 125 Active 2012 Medical ml/hr, Infuse Center over: 8 hr, Route: IV, Dosing Weight 90 kg, Total Volume: 1,000, Start date: 03/07/13 12:19:00, Duration: 30 day, Stop date: 04/06/13 12:18:00 insulin aspart 2 unit, 0.02 SUB-Q No Longer [facility] mL, Route: Active 2012 Medical SUB-Q, Drug Center form: SOLN, TID-Before Meals, Dosing Weight 90, kg, PRN Blood Glucose Results, Start date: 03/07/13 11:55:00, Duration: 30 day, Stop date: 04/06/13 11:54:00 glucagon 1 mg, Route: IM No Longer [facility] IM, Drug Active 2012 Medical form: Center PDR/INJ, PRN, Dosing Weight 90, kg, PRN Blood Glucose Results, Start date: 03/07/13 11:55:00, Duration: 30 day, Stop date: 04/06/13 11:54:00 Dextrose 50% 12.5 gm, 25 IVP No Longer [facility] Syringe mL, Route: Active 2012 Medical IVP, Drug Center Form: INJ, Dosing Weight 90, kg, PRN, PRN Blood Glucose Results, Start date: 03/07/13 11:55:00, Duration: 30 day, Stop date: 04/06/13 11:54:00 Phenergan 12.5 mg, 0.5 IVPB No Longer [facility] mL, Route: Active 2012 Medical IVPB, Drug Center form: INJ, Q4H, Dosing Weight 90, kg, PRN Nausea & Vomiting, Start date: 03/07/13 11:53:00, Duration: 30 day, Stop date: 04/06/13 11:52:00 albuterol 2.49 mg, 3 NEB No Longer [facility] 0.083% mL, Route: Active 2012 Medical inhalation NEB, Drug Center solution form: SOLN, RQ4H, Dosing Weight 90, kg, PRN as needed for wheezing, Start date: 03/07/13 11:53:00, Duration: 30 day, Stop date: 04/06/13 11:52:00 Zofran 4 mg, 2 mL, IVP No Longer [facility] Route: IVP, Active 2012 Medical Drug form: Center INJ, Q4H, Dosing Weight 90, kg, PRN Nausea, Start date: 03/07/13 11:53:00, Duration: 30 day, Stop date: 04/06/13 11:52:00 acetaminophen-h 1 tab, Route: PO No Longer [facility] ydrocodone 325 PO, Drug Active 2012 Medical mg-10 mg oral Form: TAB, Center tablet Dosing Weight 90, kg, Q4H, PRN Pain Score 4-6, Start date: 03/07/13 11:51:00, Duration: 30 day, Stop date: 04/06/13 11:50:00 acetaminophen-h 1 tab, Route: PO No Longer [facility] ydrocodone 325 PO, Drug Active 2012 Medical mg-5 mg oral Form: TAB, Center tablet Dosing Weight 90, kg, Q4H, PRN Pain Score 1-3, Start date: 03/07/13 11:51:00, Duration: 30 day, Stop date: 04/06/13 11:50:00 acetaminophen 650 mg, 2 PO No Longer [facility] tab, Route: Active 2012 Medical PO, Drug Center form: TAB, Q4H, Dosing Weight 90, kg, PRN Pain 1-3/Temp > 100.4 F, Start date: 03/07/13 11:51:00, Duration: 30 day, Stop date: 04/06/13 11:50:00 morphine 2 mg, 1 mL, IVP No Longer [facility] Sulfate Route: IVP, Active 2012 Medical Drug form: Center INJ, Q4H, Dosing Weight 90, kg, PRN Pain Score 7-10, Start date: 03/07/13 11:51:00, Duration: 30 day, Stop date: 04/06/13 11:50:00 docusate 100 mg, 1 PO No Longer [facility] cap, Route: Active 2012 Medical PO, Drug Center form: CAP, BID, Dosing Weight 90, kg, PRN Constipation, Start date: 03/07/13 11:51:00, Duration: 30 day, Stop date: 04/06/13 11:50:00 Levemir 12 unit, 0.12 SUB-Q No Longer [facility] mL, Route: Active 2012 Medical SUB-Q, Drug Center form: INJ, ONCE, Dosing Weight 90, kg, Start date: 03/07/13 6:10:00, Stop date: 03/07/13 6:10:00 lidocaine-epi 1 ml, Route: SUB-Q No Longer [facility] [id number] SUB-Q, Drug Active 2012 Medical Form: SOLN, Center Dosing Weight 90, kg, ONCE, STAT, Start date: 03/07/13 5:18:00, Stop date: 03/07/13 5:18:00 Insulin regular 99 mL, Rate: IVPB No Longer [facility] 100 unit + Start Insulin Active 2012 Medical Sodium Chloride Drip Per ICU Center 0.9% (titrate) Protocol, 99 mL Dosing Weight 90, kg, Route: IVPB, Total Volume: 100, Duration: 30 day, Stop date: 04/06/13 5:14:00, Replace Every: 24 hr, Initial Insulin Drip Rate (units/hour)= (Fasting Blood Glucose-60)X0 .03 "multip...
Initial Insulin Drip Rate (units/hour)= (Fasting Blood Glucose-60)X0 .03 "multiplier". Dextrose 50% 12.5 gm, 25 IVP No Longer [facility] Syringe mL, Route: Active 2012 Medical IVP, Drug Center Form: INJ, Dosing Weight 90, kg, PRN, PRN Blood Glucose Results, Start date: 03/07/13 5:13:00, Duration: 30 day, Stop date: 04/06/13 5:12:00 NS (Bolus) IV 1,000 mL, IV No Longer [facility] [place] 1,000 mL Rate: 1,000 2012 Medical ml/hr, Infuse Center over: 1 hr, Route: IV, Dosing Weight 90 kg, Total Volume: 1,000, Priority: STAT, Start date: 03/07/13 2:36:00, Duration: 1 doses or times, Stop date: 03/07/13 3:35:00, Bolus Dose
Bolu s Dose magnesium 2 gm, 50 mL, IVPB No Longer [facility] [place] sulfate Route: IVPB, Active 2012 Medical Drug form: Center INJ, ONCE, Dosing Weight 90, kg, Start date: 03/07/13 2:35:00, Stop date: 03/07/13 2:35:00 Insulin regular 10 unit, 0.1 SUB-Q No Longer [facility] [place] mL, Route: Active 2012 Medical SUB-Q, Drug Center form: SOLN, ONCE, Dosing Weight 90, kg, Priority: STAT, Start date: 03/07/13 2:16:00, Stop date: 03/07/13 2:16:00 Reglan 10 mg, 2 mL, IVP No Longer [facility] [place] Route: IVP, Active 2012 Medical Drug form: Center INJ, ONCE, Dosing Weight 90, kg, Priority: STAT, Start date: 03/07/13 2:16:00, Stop date: 03/07/13 2:16:00 NS 1,000 mL 1,000 mL, IV No Longer [facility] [place] Rate: 150 2012 Medical ml/hr, Infuse Center over: 6.7 hr, Route: IV, Dosing Weight 90 kg, Total Volume: 1,000, Start date: 03/07/13 2:15:00, Duration: 30 day, Stop date: 04/06/13 2:14:00 droperidol 1.25 mg, IVP No Longer [facility] [place] Route: IVP, Active 2012 Medical ONCE, Dosing Center Weight 90, kg, PRN Nausea & Vomiting, Start date: 03/07/13 0:48:00 D5W 1/2NS 1,000 1,000 mL, IV No Longer [facility] mL Rate: 125 2012 Medical ml/hr, Infuse Center over: 8 hr, Route: IV, Dosing Weight 90 kg, Total Volume: 1,000, Start date: 03/07/13 0:43:00, Duration: 30 day, Stop date: 04/06/13 0:42:00 Insulin regular 4 unit, 0.04 SUB-Q No Longer [facility] [place] mL, Route: Active 2012 Medical SUB-Q, Drug Center form: SOLN, Sliding Scale, Dosing Weight 90, kg, PRN Blood Glucose Results, Start date: 03/07/13 0:01:00, Duration: 30 day, Stop date: 04/06/13 0:00:00 glucagon 1 mg, Route: IM No Longer [facility] [place] IM, Drug Active 2012 Medical form: Center PDR/INJ, PRN, Dosing Weight 90, kg, PRN Blood Glucose Results, Start date: 03/07/13 0:01:00, Duration: 30 day, Stop date: 04/06/13 0:00:00 Dextrose 50% 25 gm, 50 mL, IVP No Longer [facility] [place] Syringe Route: IVP, Active 2012 Medical Drug Form: Center INJ, Dosing Weight 90, kg, PRN, PRN Blood Glucose Results, Start date: 03/07/13 0:01:00, Duration: 30 day, Stop date: 04/06/13 0:00:00 NS 1,000 mL 1,000 mL, IV No Longer [facility] Rate: 125 2012 Medical ml/hr, Infuse Center over: 8 hr, Route: IV, Dosing Weight 90 kg, Total Volume: 1,000, Start date: 03/06/13 23:21:00, Duration: 30 day, Stop date: 04/05/13 23:20:00 NS (Bolus) IV 1,000 mL, IV No Longer [facility] 1,000 mL Rate: 1,000 Active 2012 Medical ml/hr, Infuse Center over: 1 hr, Route: IV, Dosing Weight 90 kg, Total Volume: 1,000, Priority: STAT, Start date: 03/06/13 23:21:00, Duration: 1 doses or times, Stop date: 03/07/13 0:20:00, Bolus Dose
Bolu s Dose [place] 5/325 1 tab, PO, PO No Longer [facility] oral tablet Q6H, PRN, 30 Active 2012 Medical tab, Center Substitution Allowed, Maintenance ferrous sulfate 325 mg, 1 PO Active [facility] 325 mg oral tab, PO, TID, 2012 Medical enteric coated 30 tab, [place] tablet Substitution Allowed, ECTAB acetaminophen-h 1 tab, PO, PO Active [facility] ydrocodone 500 Q4H, PRN, for 2012 Medical mg-7.5 mg oral pain, [place] tablet Substitution Allowed, Maintenance, TAB meloxicam 7.5 7.5 mg, 1 PO Active [facility] mg oral tablet tab, PO, BID, 2012 Medical WITH FOOD, 30 [place] tab, Substitution Allowed, TAB
WITH FOOD Zocor 40 mg 40 mg, 1 tab, PO Active [facility] oral tablet PO, Bedtime, 2012 Medical 30 tab, Center Substitution Allowed, Maintenance ProAir HFA 90 Substitution Active [facility] mcg/inh Allowed, 2012 Medical inhalation Maintenance Center aerosol with adapter Flexeril 10 mg 10 mg, 1 tab, PO Active [facility] oral tablet PO, TID, PRN, 2012 Medical 30 tab, for Center spasm, Substitution Allowed, TAB Protonix 40 mg 40 mg, 1 tab, PO Active [facility] oral enteric PO, BID, 30 2012 Medical coated tablet tab, [place] Substitution Allowed, ECTAB Lyrica 150 mg 150 mg, 1 PO Active [facility] oral capsule cap, PO, BID, 2012 Medical 90 cap, [place] Substitution Allowed, CAP Flagyl 500 mg 500 mg, 1 PO No Longer [facility] oral tablet tab, PO, Q6H, Active 2012 Medical 30 tab, Center Substitution Allowed metoclopramide 10 mg, 1 tab, PO Active [facility] 10 mg oral PO, TID, 56 2012 Medical tablet tab, Center Substitution Allowed, TAB NS (Bolus) IV 1,000 mL, IV No Longer [facility] 1,000 mL Rate: 1,000 Active 2012 Medical ml/hr, Infuse Center over: 1 hr, Route: IV, Dosing Weight 90 kg, Total Volume: 1,000, Priority: STAT, Start date: 03/06/13 21:27:00, Duration: 1 doses or times, Stop date: 03/06/13 22:26:00, Bolus Dose
Bolu s Dose morphine 4 mg, 1 mL, IVP No Longer [facility] Sulfate Route: IVP, Active 2012 Medical Drug form: Center INJ, ONCE, Dosing Weight 90, kg, Start date: 03/06/13 21:27:00, Stop date: 03/06/13 21:27:00 Phenergan 12.5 mg, 0.5 IVPB No Longer [facility] mL, Route: Active 2012 Medical IVPB, Drug Center form: INJ, ONCE, Dosing Weight 90, kg, Priority: STAT, Start date: 03/06/13 21:26:00, Stop date: 03/06/13 21:26:00 ergocalciferol 50,000 PO No Longer [facility] IntlUnit, 1 Active 2012 Medical cap, Route: Center PO, Drug form: CAP, qWeek, Dosing Weight 100, kg, Start date: 12/07/12 9:00:00, Duration: 30 day, Stop date: 01/04/13 9:00:00 erythromycin 250 mg, 1 PO Active [facility] stearate 250 mg tab, PO, Q6H, 2012 Medical oral tablet 56 tab, Center Substitution Allowed, TAB Protonix 40 mg 40 mg, 1 tab, PO Active [facility] oral enteric PO, Daily, 2012 Medical coated tablet tab, Center Substitution Allowed, ECTAB pravastatin 80 80 mg, 1 tab, PO Active [facility] mg oral tablet PO, Daily, 30 2012 Medical tab, Center Substitution Allowed, TAB insulin detemir 14 unit, 0.14 SUB-Q Active [facility] 100 units/mL mL, SUB-Q, 2012 Medical subcutaneous Bedtime, 100 Center solution mL, Substitution Allowed, INJ insulin detemir 16 unit, 0.16 SUB-Q Active [facility] 100 units/mL mL, SUB-Q, 2012 Medical subcutaneous Daily, 100 Center solution mL, Substitution Allowed, INJ Protonix 40 mg, Route: IVP No Longer [facility] IVP, Drug Active 2012 Medical form: INJ, Center Daily, Dosing Weight 100, kg, Priority: NOW, Start date: 12/06/12 16:52:00, Duration: 30 day, Stop date: 01/05/13 9:00:00 insulin detemir 16 unit, 0.16 SUB-Q No Longer [facility] mL, Route: Active 2012 Medical SUB-Q, Drug Center form: INJ, Daily, Dosing Weight 100, kg, Start date: 12/06/12 9:00:00, Stop date: 01/04/13 9:00:00 [place] 7.5/325 1 tab, Route: PO No Longer [facility] oral tablet PO, Drug Active 2012 Medical Form: TAB, Center Dosing Weight 100, kg, ONCE, Start date: 12/06/12 0:19:00, Stop date: 12/06/12 0:19:00 Pravachol 80 mg, 4 tab, PO No Longer [facility] Route: PO, Active 2012 Medical Drug form: Center TAB, Bedtime, Start date: 12/05/12 21:00:00, Duration: 30 day, Stop date: 01/03/13 21:00:00 insulin detemir 14 unit, 0.14 SUB-Q No Longer [facility] mL, Route: Active 2012 Medical SUB-Q, Drug Center form: INJ, Bedtime, Dosing Weight 100, kg, Start date: 12/05/12 21:00:00, Stop date: 01/03/13 21:00:00 morphine 4 mg, 1 mL, IVP No Longer [facility] Sulfate Route: IVP, Active 2012 Medical Drug form: Center INJ, ONCE, Dosing Weight 100, kg, Start date: 12/05/12 16:51:00, Stop date: 12/05/12 16:51:00 erythromycin + 250 mg, IVPB No Longer [facility] Sodium Chloride Route: IVPB, Active 2012 Medical 0.9% IV 100 mL Q8H, Dosing Center Weight 100, kg, Start date: 12/05/12 16:00:00, Duration: 30 day, Stop date: 01/04/13 8:00:00 potassium 20 mEq, 100 IVPB No Longer [facility] [place] chloride mL, Route: Active 2012 Medical IVPB, Q2H, Center Start date: 12/05/12 8:00:00, Stop date: 12/05/12 11:00:00 NS + KCL 1,000 mL, IV No Longer [facility] [place] 20mEq/L 1000ml Rate: 125 Active 2012 Medical ([facility]) 1,000 ml/hr, Infuse Center mL over: 8 hr, Route: IV, kg, Total Volume: 1,000, Start date: 12/05/12 7:21:00, Duration: 30 day, Stop date: 01/04/13 7:20:00 potassium 40 mEq, IVPB No Longer [facility] [place] chloride Route: IVPB, Active 2012 Medical ONCE, Dosing Center Weight 100, kg, Start date: 12/05/12 7:21:00, Stop date: 12/05/12 7:21:00 GI cocktail 30 ml, Route: PO No Longer [facility] PO, Drug Active 2012 Medical Form: SUSP, Center Dosing Weight 100, kg, ONCE, Routine, Start date: 12/04/12 23:39:00, Stop date: 12/04/12 23:39:00 potassium 20 mEq, 100 IVPB No Longer [facility] chloride mL, Route: Active 2012 Medical IVPB, Q2H, Center Start date: 12/04/12 10:00:00, Duration: 2 doses or times, Stop date: 12/04/12 12:00:00 Protonix 40 mg, 1 tab, PO No Longer [facility] Route: PO, Active 2012 Medical Drug form: Center ECTAB, Daily, Dosing Weight 100, kg, Start date: 12/04/12 9:00:00, Duration: 30 day, Stop date: 01/02/13 9:00:00 potassium 40 mEq, IV No Longer [facility] [place] chloride Route: IV, Active 2012 Medical ONCE, Dosing Center Weight 100, kg, Start date: 12/04/12 8:20:00, Stop date: 12/04/12 8:20:00 Phenergan 25 mg, 1 NH No Longer [facility] supp, Route: Active 2012 Medical [place], Drug Center form: SUPP, Q4H, Dosing Weight 100, kg, PRN Nausea & Vomiting, Start date: 12/04/12 7:58:00, Duration: 30 day, Stop date: 01/03/13 7:57:00 Dextrose 50% 25 gm, 50 mL, IVP No Longer [facility] Syringe Route: IVP, Active 2012 Medical Drug Form: Center INJ, Dosing Weight 100, kg, PRN, PRN Blood Glucose Results, Start date: 12/04/12 7:48:00, Duration: 30 day, Stop date: 01/03/13 7:47:00 glucagon 1 mg, Route: IM No Longer [facility] [place] IM, Drug Active 2012 Medical form: Center PDR/INJ, PRN, Dosing Weight 100, kg, PRN Blood Glucose Results, Start date: 12/04/12 7:48:00, Duration: 30 day, Stop date: 01/03/13 7:47:00 insulin aspart 4 unit, 0.04 SUB-Q No Longer [facility] [place] mL, Route: Active 2012 Medical SUB-Q, Drug Center form: SOLN, Bedtime, Dosing Weight 100, kg, PRN Blood Glucose Results, Start date: 12/04/12 7:48:00, Duration: 30 day, Stop date: 01/03/13 7:47:00 Protonix 40 mg, Route: IV No Longer [facility] [place] IV, Drug Active 2012 Medical form: INJ, Center ONCE, Dosing Weight 100, kg, Start date: 12/04/12 3:12:00, Stop date: 12/04/12 3:12:00 potassium 20 mEq, 100 IVPB No Longer [facility] chloride mL, Route: Active 2012 Medical IVPB, Q2H, Center Start date: 12/03/12 8:00:00, Stop date: 12/03/12 11:00:00 potassium 40 mEq, IV No Longer [facility] chloride Route: IV, Active 2012 Medical ONCE, Dosing Center Weight 100, kg, Start date: 12/03/12 7:02:00, Stop date: 12/03/12 7:02:00 NS 1,000 mL 1,000 mL, IV No Longer [facility] Rate: 125 Active 2012 Medical ml/hr, Infuse Center over: 8 hr, Route: IV, kg, Total Volume: 1,000, Start date: 12/02/12 16:54:00, Duration: 30 day, Stop date: 01/01/13 16:53:00 NS (Bolus) IV 1,000 mL, IV No Longer [facility] 1,000 mL Rate: 1,000 Active 2012 Medical ml/hr, Infuse Center over: 1 hr, Route: IV, kg, Total Volume: 1,000, Priority: STAT, Start date: 12/02/12 13:12:00, Duration: 1 doses or times, Stop date: 12/02/12 14:11:00, Bolus Dose
B olus Dose NS (Bolus) IV 1,000 mL, IV No Longer [facility] 1,000 mL Rate: 1,000 2012 Medical ml/hr, Infuse Center over: 1 hr, Route: IV, kg, Total Volume: 1,000, Priority: STAT, Start date: 12/02/12 12:10:00, Duration: 1 doses or times, Stop date: 12/02/12 13:09:00, Bolus Dose
B olus Dose insulin detemir 20 unit, 0.2 SUB-Q No Longer [facility] mL, Route: Active 2012 Medical SUB-Q, Drug Center form: INJ, BID, Dosing Weight 100, kg, Start date: 12/02/12 9:00:00, Duration: 30 day, Stop date: 12/31/12 21:00:00 calcium 1,000 mg, 10 IVPB No Longer [facility] chloride + mL, Route: Active 2012 Medical Sodium Chloride IVPB, ONCE, Center 0.9% IV 100 mL Start date: 12/02/12 5:08:00, Stop date: 12/02/12 5:08:00 ceftriaxone 1 gm, Route: IVPB No Longer [facility] IVPB, Drug Active 2012 Medical form: Center PDR/INJ, [id number], Dosing Weight 100, kg, Start date: 12/02/12 5:00:00, Duration: 30 day, Stop date: 12/31/12 5:00:00 calcium 1,000 mg, IVPB No Longer [facility] gluconate Route: IVPB, Active 2012 Medical Drug form: Center INJ, ONCE, Dosing Weight 100, kg, Start date: 12/02/12 5:00:00, Stop date: 12/02/12 5:00:00 Dextrose 50% 25 mL, Route: IVP No Longer [facility] Syringe IVP, Dosing Active 2012 Medical Weight 100, Center kg, PRN, PRN Blood Glucose Results, Start date: 12/02/12 4:51:00, Duration: 30 day, Stop date: 01/01/13 4:50:00 Insulin regular 100 mL, Rate: IVPB No Longer [facility] 100 unit + Start Insulin Active 2012 Medical Sodium Chloride Drip Per ICU Center 0.9% (titrate) Protocol, 100 mL Dosing Weight 100, kg, Route: IVPB, Total Volume: 100, Duration: 30 day, Stop date: 01/01/13 4:51:00, Replace Every: 24 hr, Initial Insulin Drip Rate (units/hour)= (Fasting Blood Glucose-60)X0 .03 "mult...
Initial Insulin Drip Rate (units/hour)= (Fasting Blood Glucose-60)X0 .03 "multiplier". Zofran 4 mg, Route: IVP No Longer [facility] IVP, Drug Active 2012 Medical form: INJ, Center ONCE, Dosing Weight 100, kg, Priority: STAT, Start date: 12/02/12 4:47:00, Stop date: 12/02/12 4:47:00 normal saline 1,000 mL, IV No Longer [facility] 0.9% IV 1,000 Rate: 1,000 Active 2012 Medical mL ml/hr, Infuse Center over: 1 hr, Route: IV, kg, Total Volume: 1,000, Start date: 12/02/12 3:19:00, Duration: 1 doses or times, Stop date: 12/02/12 4:18:00 Insulin regular 6 unit, 0.06 IV No Longer [facility] mL, Route: Active 2012 Medical IV, Drug Center form: SOLN, ONCE, Dosing Weight 100, kg, Priority: STAT, Start date: 12/02/12 3:19:00, Stop date: 12/02/12 3:19:00 insulin aspart 3 unit, 0.03 SUB-Q No Longer [facility] mL, Route: Active 2012 Medical SUB-Q, Drug Center form: SOLN, Bedtime, Dosing Weight 100, kg, PRN Blood Glucose Results, Start date: 12/01/12 13:23:00, Duration: 30 day, Stop date: 12/31/12 13:22:00 NS 1,000 mL 1,000 mL, IV No Longer [facility] Rate: 150 Active 2012 Medical ml/hr, Infuse Center over: 6.7 hr, Route: IV, kg, Total Volume: 1,000, Priority: NOW, Start date: 12/01/12 13:10:00, Duration: 1 doses or times, Stop date: 12/01/12 19:51:00 Insulin regular 2 unit, 0.02 SUB-Q No Longer [facility] mL, Route: Active 2012 Medical SUB-Q, Drug Center form: SOLN, Bedtime, Dosing Weight 100, kg, PRN Blood Glucose Results, Start date: 12/01/12 13:08:00, Duration: 30 day, Stop date: 12/31/12 13:07:00 insulin aspart 4 unit, 0.04 SUB-Q No Longer [facility] mL, Route: Active 2012 Medical SUB-Q, Drug Center form: SOLN, TID-Before Meals, Dosing Weight 100, kg, PRN Blood Glucose Results, Start date: 12/01/12 13:08:00, Duration: 30 day, Stop date: 12/31/12 13:07:00 Dextrose 50% 25 gm, 50 mL, IVP No Longer [facility] Syringe Route: IVP, Active 2012 Medical Drug Form: Center INJ, Dosing Weight 100, kg, PRN, PRN Blood Glucose Results, Start date: 12/01/12 13:08:00, Duration: 30 day, Stop date: 12/31/12 13:07:00 glucagon 1 mg, Route: IM No Longer [facility] IM, Drug Active 2012 Medical form: Center PDR/INJ, PRN, Dosing Weight 100, kg, PRN Blood Glucose Results, Start date: 12/01/12 13:08:00, Duration: 30 day, Stop date: 12/31/12 13:07:00 heparin 5000 5,000 unit, 1 SUB-Q No Longer [facility] units/mL mL, Route: Active 2012 Medical injectable SUB-Q, Drug [place] solution form: INJ, Q8H, Dosing Weight 100, kg, Start date: 12/01/12 9:00:00, Duration: 30 day, Stop date: 12/31/12 8:00:00 magnesium 2 gm, 50 mL, IVPB No Longer [facility] sulfate Route: IVPB, Active 2012 Medical Drug form: Center INJ, Q2H, Dosing Weight 100, kg, Start date: 12/01/12 6:00:00, Duration: 2 doses or times, Stop date: 12/01/12 8:00:00, For Mg=1.5 - 1.7 mg/dL
For Mg=1.5 - 1.7 mg/dL potassium 20 mEq, 100 IVPB No Longer [facility] chloride mL, Route: Active 2012 [facility] IVPB, Drug Center form: INJ, Q2H, Dosing Weight 100, kg, Total dose=40 mEq, Start date: 12/01/12 6:00:00, Duration: 2 doses or times, Stop date: 12/01/12 8:00:00, For K=3.5 - 3.9 mEq/L
For K=3.5 - 3.9 mEq/L Dextrose 50% 12.5 gm, 25 IVP No Longer [facility] 12[facility]01[facility] Syringe mL, Route: Active 2012 Medical IVP, Drug [place] Form: INJ, Dosing Weight 100, kg, PRN, PRN Blood Glucose Results, Start date: 11/30/12 19:13:00, Duration: 30 day, Stop date: 12/30/12 19:12:00 insulin aspart 1 unit, 0.01 SUB-Q No Longer [facility] mL, Route: Active 2012 Medical SUB-Q, Drug Center form: SOLN, Sliding Scale, Dosing Weight 100, kg, PRN Blood Glucose Results, Start date: 11/30/12 18:36:00, Duration: 30 day, Stop date: 12/30/12 18:35:00 insulin detemir 16 unit, 0.16 SUB-Q No Longer [facility] mL, Route: Active 2012 Medical SUB-Q, Drug Center form: INJ, Q12H, Dosing Weight 100, kg, Start date: 11/30/12 14:00:00, Duration: 30 day, Stop date: 12/30/12 9:00:00 Zofran 4 mg, 2 mL, IV No Longer [facility] Route: IV, Active 2012 Medical Drug form: Center INJ, Q6H, Dosing Weight 100, kg, PRN Nausea, Start date: 11/30/12 13:32:00, Duration: 30 day, Stop date: 12/30/12 13:31:00 insulin aspart 10 unit, 0.1 SUB-Q No Longer [facility] mL, Route: Active 2012 Medical SUB-Q, Drug Center form: SOLN, TID-Before Meals, Dosing Weight 100, kg, PRN Blood Glucose Results, Start date: 11/30/12 13:26:00, Duration: 30 day, Stop date: 12/30/12 13:25:00 Zofran 4 mg, 2 mL, IV No Longer [facility] Route: IV, Active 2012 Medical Drug form: Center INJ, Q8H, Dosing Weight 100, kg, PRN Nausea, Start date: 11/30/12 11:58:00, Duration: 30 day, Stop date: 12/30/12 11:57:00 Zofran 4 mg, 2 mL, IVP No Longer [facility] Route: IVP, Active 2012 Medical Drug form: Center INJ, ONCE, Dosing Weight 100, kg, Priority: NOW, Start date: 11/30/12 11:57:00, Stop date: 11/30/12 11:57:00 potassium 2 pkt, Route: PO No Longer [facility] phosphate-sodiu PO, Drug Active 2012 Medical m phosphate 250 Form: Center mg-278 mg-164 PDR/REC, mg oral powder ONCE, Start date: 11/30/12 10:00:00, Stop date: 11/30/12 10:00:00 Dextrose 5% 1,000 mL, IV No Longer [facility] [place] with 0.45% NaCl Rate: 150 Active 2012 Medical IV 1,000 mL ml/hr, Infuse Center over: 6.7 hr, Route: IV, kg, Total Volume: 1,000, Start date: 11/30/12 9:12:00, Duration: 30 day, Stop date: 12/30/12 9:11:00 insulin detemir 16 unit, 0.16 SUB-Q No Longer [facility] mL, Route: Active 2012 Medical SUB-Q, Drug [place] form: INJ, Q12H, Dosing Weight 100, kg, Start date: 11/30/12 9:00:00, Duration: 30 day, Stop date: 12/29/12 21:00:00 heparin 5,000 unit, 1 SUB-Q No Longer [facility] mL, Route: Active 2012 Medical SUB-Q, Drug [place] form: INJ, Q8H, Dosing Weight 100, kg, Start date: 11/30/12 8:30:00, Duration: 30 day, Stop date: 12/30/12 8:00:00 magnesium 2 gm, Route: IVPB No Longer [facility] 11/[facility] sulfate IVPB, Drug Active 2012 Medical form: INJ, Center ONCE, Dosing Weight 100, kg, Total dose=2 gm, Start date: 11/30/12 8:05:00, Duration: 1 doses or times, Stop date: 11/30/12 8:05:00 potassium 30 mmol, IVPB No Longer [facility] phosphate Route: IVPB, Active 2012 Medical ONCE, Dosing Center Weight 100, kg, Start date: 11/30/12 8:05:00, Duration: 1 doses or times, Stop date: 11/30/12 8:05:00, For PO4=1.5 - 1.9 mg/dL; Administer when level=3 - 3.4 mEq/L in place of KCl
For PO4=1.5 - 1.9 mg/dL; Administer when level=3 - 3.4 mEq/L in place of KCl heparin 5000 5,000 unit, SUB-Q No Longer [facility] units/mL Route: SUB-Q, Active 2012 Medical injectable Drug form: Center solution INJ, Q8H, Dosing Weight 100, kg, Start date: 11/30/12 8:00:00, Duration: 30 day, Stop date: 12/30/12 0:00:00 insulin aspart 10 unit, 0.1 SUB-Q No Longer [facility] mL, Route: Active 2012 Medical SUB-Q, Drug Center form: SOLN, TID-Before Meals, Dosing Weight 100, kg, PRN Blood Glucose Results, Start date: 11/30/12 7:57:00, Duration: 30 day, Stop date: 12/30/12 7:56:00 glucagon 1 mg, Route: IM No Longer [facility] IM, Drug Active 2012 Medical form: [place] PDR/INJ, PRN, Dosing Weight 100, kg, PRN Blood Glucose Results, Start date: 11/30/12 7:57:00, Duration: 30 day, Stop date: 12/30/12 7:56:00 Dextrose 50% 25 gm, 50 mL, IVP No Longer [facility] Syringe Route: IVP, Active 2012 Medical Drug Form: Center INJ, Dosing Weight 100, kg, PRN, PRN Blood Glucose Results, Start date: 11/30/12 7:57:00, Duration: 30 day, Stop date: 12/30/12 7:56:00 1/2 NS 1,000 mL 1,000 mL, IV No Longer [facility] 11[facility]30[facility] Rate: 200 Active 2012 Medical ml/hr, Infuse Center over: 5 hr, Route: IV, kg, Total Volume: 1,000, Start date: 11/30/12 5:30:00, Duration: 30 day, Stop date: 12/30/12 5:29:00 heparin 5000 5,000 unit, 1 SUB-Q No Longer [facility] units/mL mL, Route: Active 2012 Medical injectable SUB-Q, Drug Center solution form: INJ, Q8H, Dosing Weight 100, kg, Start date: 11/30/12 0:00:00, Duration: 30 day, Stop date: 12/29/12 16:00:00 hydrALAZINE 10 mg, 0.5 IV No Longer [facility] mL, Route: Active 2012 Medical IV, Drug Center form: INJ, Q4H, Dosing Weight 100, kg, PRN Hypertension, Start date: 11/29/12 22:56:00, Duration: 30 day, Stop date: 12/29/12 22:55:00 simvastatin 40 mg, 1 tab, PO No Longer [facility] Route: PO, Active 2012 Medical Drug form: [place] TAB, Bedtime, Dosing Weight 101.364, kg, Start date: 11/29/12 21:00:00, Duration: 30 day, Stop date: 12/28/12 21:00:00 Cymbalta 60 mg, 1 cap, PO No Longer [facility] Route: PO, Active 2012 Medical Drug form: [place] DRC, Bedtime, Dosing Weight 101.364, kg, Start date: 11/29/12 21:00:00, Stop date: 12/28/12 21:00:00 ceftriaxone 1 gm, Route: IVPB No Longer [facility] IVPB, Drug Active 2012 Medical form: [place] PDR/INJ, [id number], Dosing Weight 100, kg, Start date: 11/29/12 20:00:00, Duration: 30 day, Stop date: 12/28/12 20:00:00 hydrALAZINE 5 mg, 0.25 IV No Longer [facility] mL, Route: Active 2012 Medical IV, Drug Center form: INJ, Q4H, Dosing Weight 100, kg, PRN Hypertension, Start date: 11/29/12 19:42:00, Duration: 30 day, Stop date: 12/29/12 19:41:00 Phenergan 12.5 mg, 0.5 IVPB No Longer [facility] mL, Route: Active 2012 Medical IVPB, Drug Center form: INJ, Q4H, Dosing Weight 100, kg, PRN Nausea & Vomiting, Start date: 11/29/12 17:56:00, Duration: 30 day, Stop date: 12/29/12 17:55:00 clonazepam 0.5 mg, 1 PO No Longer [facility] [place] tab, Route: Active 2012 Medical PO, Drug Center form: TAB, TID, Dosing Weight 101.364, kg, PRN Anxiety, Start date: 11/29/12 16:34:00, Duration: 30 day, Stop date: 12/29/12 16:33:00 heparin 5,000 unit, 1 SUB-Q No Longer [facility] mL, Route: Active 2012 Medical SUB-Q, Drug Center form: INJ, Q8H, Dosing Weight 100, kg, Start date: 11/29/12 16:00:00, Duration: 30 day, Stop date: 12/29/12 8:00:00 Insulin 99 mL, Rate: IV No Longer [facility] (regular) 0.1units/kg/h Active 2012 Medical Titrate IV our Titrate, Center additive 100 Dosing Weight unit + Sodium 100, kg, Chloride 0.9% Route: IV, (titrate) 99 mL Total Volume: 100, Duration: 30 day, Stop date: 12/29/12 14:42:00, Replace Every: 24 hr magnesium 6 gm, 150 mL, IVPB No Longer [facility] [place] sulfate 2 gm in Route: IVPB, Active 2012 Medical Water 50 ml Drug form: Center INJ, PRN, Dosing Weight 100, kg, PRN Abnormal Lab Result, Start date: 11/29/12 14:41:00, Stop date: 12/29/12 14:40:00 potassium 20 mmol, IVPB No Longer [facility] [place] phosphate 20 Route: IVPB, Active 2012 Medical mmol/250 PRN, Dosing Center mL-NaCl 0.9% Weight 100, intravenous kg, PRN solution Abnormal Lab Result, Priority: Routine, Start date: 11/29/12 14:41:00, Duration: 30 day, Stop date: 12/29/12 14:40:00 Dextrose 50% 25 gm, 50 ml, IVP No Longer [facility] [place] Syringe Route: IVP, Active 2012 Medical Drug Form: Center INJ, Dosing Weight 100, kg, PRN, PRN Blood Glucose Results, Start date: 11/29/12 14:41:00, Duration: 30 day, Stop date: 12/29/12 14:40:00 potassium 40 mEq, 200 IVPB No Longer [facility] [place] chloride 20 mL, Route: Active 2012 Medical mEq/100 mL IVPB, Drug Center intravenous form: INJ, solution PRN, Dosing Weight 100, kg, PRN Abnormal Lab Result, Start date: 11/29/12 14:41:00, Stop date: 12/29/12 14:40:00 D5W 1/2NS 1,000 1,000 mL, IV No Longer [facility] [place] mL Rate: 200 Active 2012 Medical ml/hr, Infuse Center over: 5 hr, Route: IV, kg, Total Volume: 1,000, Start date: 11/29/12 14:41:00, Stop date: 12/29/12 14:40:00 Sodium Chloride 1,000 mL, IV No Longer [facility] [place] 0.9% IV 1,000 Rate: 200 Active 2012 Medical mL ml/hr, Infuse Center over: 5 hr, Route: IV, kg, Total Volume: 1,000, Start date: 11/29/12 14:41:00, Stop date: 12/29/12 14:45:00 Insulin regular 99 mL, Rate: IV No Longer [facility] 11/29[facility] [place] 100 unit + Start Insulin Active 2012 Medical Sodium Chloride Drip Per ICU Center 0.9% IV 99 mL protocol, Route: IV, kg, Total Volume: 100, Start date: 11/29/12 12:42:00, Stop date: 12/29/12 12:41:00 Insulin regular 100 mL, Rate: IVPB No Longer [facility] 11/29[facility] 100 unit + Start Insulin Active 2012 Medical Sodium Chloride Drip Per ICU Center 0.9% (titrate) Protocol, 100 mL Dosing Weight 100, kg, Route: IVPB, Total Volume: 100, Duration: 30 day, Stop date: 12/29/12 12:40:00, Replace Every: 24 hr, Initial Insulin Drip Rate (units/hour)= (Fasting Blood Glucose-60)X0 .03 "mul...
I nitial Insulin Drip Rate (units/hour)= (Fasting Blood Glucose-60)X0 .03 "multiplier". Dextrose 50% 12.5 gm, 25 IVP No Longer [facility] Syringe mL, Route: Active 2012 Medical IVP, Drug Center Form: INJ, Dosing Weight 100, kg, PRN, PRN Blood Glucose Results, Start date: 11/29/12 12:39:00, Duration: 30 day, Stop date: 12/29/12 12:38:00 Zofran 4 mg, 2 mL, IV No Longer [facility] Route: IV, Active 2012 Medical Drug form: Center INJ, Q4H, Dosing Weight 100, kg, PRN as needed for nausea/vomiti ng, Start date: 11/29/12 9:07:00, Duration: 30 day, Stop date: 12/29/12 9:06:00 NIFEdipine 90 mg, 1 tab, PO No Longer [facility] Route: PO, Active 2012 Medical Drug form: Center ERTAB, Daily, Dosing Weight 101.364, kg, Start date: 11/29/12 9:00:00, Duration: 30 day, Stop date: 12/28/12 9:00:00 clonazepam 0.5 mg, 1 PO No Longer [facility] tab, Route: Active 2012 Medical PO, Drug Center form: TAB, TID, Dosing Weight 101.364, kg, Start date: 11/29/12 9:00:00, Duration: 30 day, Stop date: 12/28/12 17:00:00 lisinopril 20 mg, 1 tab, PO No Longer [facility] Route: PO, Active 2012 Medical Drug form: Center TAB, Q12H, Dosing Weight 101.364, kg, Start date: 11/29/12 9:00:00, Duration: 30 day, Stop date: 12/28/12 21:00:00 magnesium oxide 400 mg, 1 PO No Longer [facility] tab, Route: Active 2012 Medical PO, Drug Center form: TAB, Daily, Dosing Weight 101.364, kg, Start date: 11/29/12 9:00:00, Duration: 30 day, Stop date: 12/28/12 9:00:00 Effient 10 mg, 1 tab, PO No Longer [facility] Route: PO, Active 2012 Medical Drug form: Center TAB, Daily, Dosing Weight 101.364, kg, Start date: 11/29/12 9:00:00, Duration: 30 day, Stop date: 12/28/12 9:00:00 Levemir 8 unit, 0.08 SUB-Q No Longer [facility] mL, Route: Active 2012 Medical SUB-Q, Drug Center form: INJ, BID, Dosing Weight 101.364, kg, Start date: 11/29/12 9:00:00, Duration: 30 day, Stop date: 12/28/12 17:00:00 Toprol-XL 100 100 mg, 1 PO No Longer [facility] mg oral tablet, tab, Route: Active 2012 Medical extended PO, Drug Center release form: ERTAB, Daily, Start date: 11/29/12 9:00:00, Duration: 30 day, Stop date: 12/28/12 9:00:00 aspirin 81 mg, 1 tab, PO No Longer [facility] Route: PO, Active 2012 Medical Drug form: [place] ECTAB, Daily, Dosing Weight 101.364, kg, Start date: 11/29/12 9:00:00, Duration: 30 day, Stop date: 12/28/12 9:00:00 Reglan 10 mg, 2 mL, IVP No Longer [facility] Route: IVP, Active 2012 Medical Drug form: [place] INJ, Q6H-02, Dosing Weight 100, kg, Start date: 11/29/12 8:00:00, Duration: 30 day, Stop date: 12/29/12 2:00:00 Levemir 16 unit, 0.16 SUB-Q No Longer [facility] mL, Route: Active 2012 Medical SUB-Q, Drug Center form: INJ, Q12H, Dosing Weight 100.568, kg, Priority: STAT, Start date: 11/29/12 7:43:00, Stop date: 12/28/12 21:00:00 Reglan 10 mg 10 mg, 1 tab, PO No Longer [facility] oral tablet Route: PO, Active 2012 Medical Drug form: [place] TAB, TID-Before Meals, Dosing Weight 101.364, kg, Start date: 11/29/12 7:30:00, Duration: 30 day, Stop date: 12/28/12 16:30:00 NS 1,000 mL 1,000 mL, IV No Longer [facility] Rate: 125 Active 2012 Medical ml/hr, Infuse Center over: 8 hr, Route: IV, kg, Total Volume: 1,000, Start date: 11/29/12 6:53:00, Duration: 30 day, Stop date: 12/29/12 6:52:00 enoxaparin 40 mg, 0.4 SUB-Q No Longer [facility] mL, Route: Active 2012 Medical SUB-Q, Drug Center form: INJ, [id number], Dosing Weight 101.364, kg, Start date: 11/29/12 4:00:00, Duration: 30 day, Stop date: 12/28/12 4:00:00 Phenergan 12.5 mg, 0.25 IVPB No Longer [facility] mL, Route: Active 2012 Medical IVPB, Drug Center form: INJ, Q4H, Dosing Weight 101.364, kg, Start date: 11/29/12 4:00:00, Duration: 30 day, Stop date: 12/29/12 0:00:00 tramadol 50 mg 50 mg, 1 tab, PO No Longer [facility] oral tablet Route: PO, Active 2012 Medical Drug form: Center TAB, Q4H, Dosing Weight 101.364, kg, PRN as needed for pain, Start date: 11/29/12 3:46:00, Duration: 30 day, Stop date: 12/29/12 3:45:00 insulin aspart 3 unit, 0.03 SUB-Q No Longer [facility] mL, Route: Active 2012 Medical SUB-Q, Drug Center form: SOLN, TID-Before Meals, Dosing Weight 101.364, kg, PRN Blood Glucose Results, Start date: 11/29/12 3:26:00, Duration: 30 day, Stop date: 12/29/12 3:25:00 Dextrose 50% 12.5 gm, 25 IVP No Longer [facility] Syringe mL, Route: Active 2012 Medical IVP, Drug Center Form: INJ, Dosing Weight 101.364, kg, PRN, PRN Blood Glucose Results, Start date: 11/29/12 3:26:00, Duration: 30 day, Stop date: 12/29/12 3:25:00 glucagon 1 mg, Route: IM No Longer [facility] IM, Drug Active 2012 Medical form: Center PDR/INJ, PRN, Dosing Weight 101.364, kg, PRN Blood Glucose Results, Start date: 11/29/12 3:26:00, Duration: 30 day, Stop date: 12/29/12 3:25:00 acetaminophen 650 mg, 20.3 PO No Longer [facility] mL, Route: Active 2012 Medical PO, Drug Center form: LIQ, Q4H, Dosing Weight 101.364, kg, PRN Pain 1-3/Temp > 100.4 F, Start date: 11/29/12 3:25:00, Duration: 30 day, Stop date: 12/29/12 3:24:00 docusate 100 mg, 1 PO No Longer [facility] cap, Route: Active 2012 Medical PO, Drug Center form: CAP, BID, Dosing Weight 101.364, kg, PRN Constipation, Start date: 11/29/12 3:25:00, Duration: 30 day, Stop date: 12/29/12 3:24:00 D5W 1/2NS 1,000 1,000 mL, IV No Longer [facility] mL Rate: 75 2012 Medical ml/hr, Infuse Center over: 13.3 hr, Route: IV, kg, Total Volume: 1,000, Start date: 11/29/12 3:21:00, Duration: 30 day, Stop date: 12/29/12 3:20:00 NS 0.45% IV 1,000 mL, IV No Longer [facility] 11/29[facility] 1000 mL Rate: 125 2012 Medical ml/hr, Infuse Center over: 8 hr, Route: IV, Dosing Weight 101.364 kg, Total Volume: 1,000, Start date: 11/29/12 3:18:00, Duration: 30 day, Stop date: 12/29/12 3:17:00 Reglan 10 mg, 2 mL, IVP No Longer [facility] 11/29[facility] Route: IVP, Active 2012 Medical Drug form: Center INJ, ONCE, Dosing Weight 101.364, kg, Priority: STAT, Start date: 11/29/12 2:31:00, Stop date: 11/29/12 2:31:00 Zofran 8 mg, Route: IVP No Longer [facility] 11/29[facility] IVP, Drug Active 2012 Medical form: INJ, Center ONCE, Dosing Weight 101.364, kg, Priority: STAT, Start date: 11/29/12 1:52:00, Stop date: 11/29/12 1:52:00 Lortab 500 5 ml, PO, PO No Longer [facility] mg-7.5 mg/15 mL Q6H, PRN, 120 Active 2012 Medical oral elixir mL, for pain, Center Substitution Allowed, Maintenance, ELIX Phenergan 25 mg 1 supp, NH, NH Active [facility] rectal Q6H, PRN, 9 2012 Medical suppository supp, Nausea Center & Vomiting, Substitution Allowed Phenergan 12.5 mg, 0.5 IVPB No Longer [facility] 11/29[facility] mL, Route: Active 2012 Medical IVPB, Drug Center form: INJ, ONCE, Dosing Weight 101.364, kg, Priority: STAT, Start date: 11/29/12 0:56:00, Stop date: 11/29/12 0:56:00 Zofran 4 mg, 2 mL, IVP No Longer [facility] 11/29[facility] Route: IVP, Active 2012 Medical Drug form: Center INJ, ONCE, Dosing Weight 101.364, kg, Priority: STAT, Start date: 11/28/12 23:49:00, Stop date: 11/28/12 23:49:00 Phenergan 12.5 mg, 0.5 IVPB No Longer [place] 11/29[facility] mL, Route: Active 2012 Medical IVPB, Drug Center form: INJ, ONCE, Dosing Weight 101.364, kg, Priority: STAT, Start date: 11/28/12 19:29:00, Stop date: 11/28/12 19:29:00 Zofran 4 mg, 2 mL, IVP No Longer [place] 03/26[facility] Route: IVP, Active 2012 Medical Drug form: [place] INJ, ONCE, Dosing Weight 101.364, kg, Priority: STAT, Start date: 11/28/12 19:29:00, Stop date: 11/28/12 19:29:00 Sodium Chloride 1,000 mL, IV No Longer [facility] 0.9% (Bolus) IV Rate: 1,000 Active 2012 Medical 1,000 mL ml/hr, Infuse Center over: 1 hr, Route: IV, kg, Total Volume: 1,000, Priority: STAT, Start date: 11/28/12 19:29:00, Duration: 1 doses or times, Stop date: 11/28/12 20:28:00 Saline Flush 5 ml, Route: IVP No Longer [facility] 0.9% IVP, Drug Active 2012 Medical Form: INJ, [place] Dosing Weight 101.364, kg, PRN, PRN Line Flush, Start date: 11/28/12 19:29:00, Duration: 30 day, Stop date: 12/28/12 19:28:00 calcium 2,000 mg, 20 IVPB No Longer [facility] gluconate + mL, Route: Active 2012 Medical Sodium Chloride IVPB, ONCE, [place] 0.9% IV 80 mL Dosing Weight 103.21, kg, Start date: 11/17/12 11:02:00, Stop date: 11/17/12 11:02:00 magnesium 2 gm, 50 mL, IVPB No Longer [facility] sulfate Route: IVPB, Active 2012 Medical Drug form: [place] INJ, Q2H, Dosing Weight 103.21, kg, Total dose=4 gm, Start date: 11/17/12 10:00:00, Duration: 2 doses or times, Stop date: 11/17/12 12:00:00 aspirin 81 mg, 1 tab, PO No Longer Markus [facility] Route: PO, Active 2012 Medical Drug form: [place] ECTAB, Daily, Dosing Weight 100, kg, Start date: 11/17/12 9:00:00, Duration: 30 day, Stop date: 12/16/12 9:00:00 simvastatin 40 mg, 1 tab, PO No Longer [facility] Route: PO, Active 2012 Medical Drug form: [place] TAB, Daily, Dosing Weight 100, kg, Start date: 11/17/12 9:00:00, Duration: 30 day, Stop date: 12/16/12 9:00:00 prasugrel 10 mg, 1 tab, PO No Longer [facility] Route: PO, Active 2012 Medical Drug form: [place] TAB, Daily, Dosing Weight 100, kg, Start date: 11/17/12 9:00:00, Duration: 30 day, Stop date: 12/16/12 9:00:00 NIFEdipine 90 mg, 1 tab, PO No Longer [facility] Route: PO, Active 2012 Medical Drug form: [place] ERTAB, Daily, Dosing Weight 100, kg, Start date: 11/17/12 9:00:00, Duration: 30 day, Stop date: 12/16/12 9:00:00 Toprol-XL 100 100 mg, 1 PO No Longer [facility] mg oral tablet, tab, Route: Active 2012 Medical extended PO, Drug Center release form: ERTAB, Daily, Start date: 11/17/12 9:00:00, Duration: 30 day, Stop date: 12/16/12 9:00:00 magnesium oxide 400 mg, 1 PO No Longer [facility] tab, Route: Active 2012 Medical PO, Drug Center form: TAB, Daily, Dosing Weight 100, kg, Start date: 11/17/12 9:00:00, Duration: 30 day, Stop date: 12/16/12 9:00:00 insulin detemir 15 unit, 0.15 SUB-Q No Longer [facility] mL, Route: Active 2012 Medical SUB-Q, Drug Center form: INJ, Daily, Dosing Weight 100, kg, Start date: 11/17/12 9:00:00, Duration: 30 day, Stop date: 12/16/12 9:00:00 Zofran 8 mg, 4 mL, IV No Longer [facility] Route: IV, Active 2012 Medical Drug form: [place] INJ, Q4H, Dosing Weight 103.21, kg, PRN as needed for nausea/vomiti ng, Start date: 11/17/12 8:56:00, Duration: 30 day, Stop date: 12/17/12 8:55:00 Reglan 10 mg 10 mg, 1 tab, PO No Longer [facility] oral tablet Route: PO, Active 2012 Medical Drug form: Center TAB, TID-Before Meals, Dosing Weight 100, kg, Start date: 11/17/12 7:30:00, Duration: 30 day, Stop date: 12/16/12 16:30:00 insulin aspart 4 unit, 0.04 SUB-Q No Longer [facility] mL, Route: Active 2012 Medical SUB-Q, Drug Center form: SOLN, TID-Before Meals, Dosing Weight 100, kg, Start date: 11/17/12 7:30:00, Duration: 30 day, Stop date: 12/16/12 16:30:00 Cymbalta 120 mg, 2 PO No Longer [facility] cap, Route: Active 2012 Medical PO, Drug Center form: DRC, Bedtime, Dosing Weight 100, kg, Start date: 11/16/12 21:00:00, Duration: 30 day, Stop date: 12/15/12 21:00:00 lisinopril 20 mg, 1 tab, PO No Longer [facility] Route: PO, Active 2012 Medical Drug form: [facility] TAB, Q12H, Dosing Weight 100, kg, Start date: 11/16/12 21:00:00, Duration: 30 day, Stop date: 12/16/12 9:00:00 insulin detemir 12 unit, 0.12 SUB-Q No Longer [facility] mL, Route: Active 2012 Medical SUB-Q, Drug Center form: INJ, Bedtime, Dosing Weight 100, kg, Start date: 11/16/12 21:00:00, Duration: 30 day, Stop date: 12/15/12 21:00:00 clonazepam 0.5 mg, 1 PO No Longer [facility] tab, Route: Active 2012 Medical PO, Drug Center form: TAB, TID, Dosing Weight 100, kg, Start date: 11/16/12 20:30:00, Duration: 30 day, Stop date: 12/16/12 17:00:00 Neutra-Phos 1 pkt, Route: PO No Longer [facility] PO, Drug Active 2012 Medical Form: Center PDR/REC, Dosing Weight 100, kg, TID-Before Meals, Start date: 11/16/12 20:30:00, Duration: 30 day, Stop date: 12/16/12 16:30:00 enoxaparin 40 mg, 0.4 SUB-Q No Longer [facility] mL, Route: Active 2012 Medical SUB-Q, Drug Center form: INJ, [id number], Dosing Weight 100, kg, Start date: 11/16/12 19:00:00, Duration: 30 day, Stop date: 12/15/12 19:00:00 Sodium Chloride 1,000 mL, IV No Longer [facility] 0.9% IV 1,000 Rate: 125 Active 2012 Medical mL ml/hr, Infuse Center over: 8 hr, Route: IV, kg, Total Volume: 1,000, Start date: 11/16/12 18:10:00, Duration: 30 day, Stop date: 12/16/12 18:09:00 insulin aspart 10 unit, 0.1 SUB-Q No Longer [facility] mL, Route: Active 2012 Medical SUB-Q, Drug Center form: SOLN, TID-Before Meals, Dosing Weight 100, kg, PRN Blood Glucose Results, Start date: 11/16/12 18:10:00, Duration: 30 day, Stop date: 12/16/12 18:09:00 Dextrose 50% 12.5 gm, 25 IVP No Longer [facility] Syringe mL, Route: Active 2012 Medical IVP, Drug Center Form: INJ, Dosing Weight 100, kg, PRN, PRN Blood Glucose Results, Start date: 11/16/12 18:10:00, Duration: 30 day, Stop date: 12/16/12 18:09:00 glucagon 1 mg, Route: IM No Longer [facility] IM, Drug Active 2012 Medical form: [facility] PDR/INJ, PRN, Dosing Weight 100, kg, PRN Blood Glucose Results, Start date: 11/16/12 18:10:00, Duration: 30 day, Stop date: 12/16/12 18:09:00 [place] 5/325 1 tab, Route: PO No Longer [place] [place] oral tablet PO, Drug Active 2012 Medical Form: TAB, Center Dosing Weight 100, kg, Q6H, PRN as needed for pain, Start date: 11/16/12 18:07:00, Duration: 30 day, Stop date: 12/16/12 18:06:00 tramadol 50 mg 50 mg, 1 tab, PO No Longer [facility] oral tablet Route: PO, Active 2012 Medical Drug form: [place] TAB, Q4H, Dosing Weight 100, kg, PRN as needed for pain, Start date: 11/16/12 18:01:00, Duration: 30 day, Stop date: 12/16/12 18:00:00 promethazine 25 mg, 1 tab, PO No Longer [facility] Route: PO, Active 2012 Medical Drug form: [place] TAB, Q4H, Dosing Weight 100, kg, PRN as needed for nausea/vomiti ng, Start date: 11/16/12 18:01:00, Duration: 30 day, Stop date: 12/16/12 18:00:00 ondansetron 8 mg, 2 tab, PO No Longer [facility] Route: PO, Active 2012 Medical Drug form: [place] TABDIS, Q8H, Dosing Weight 100, kg, PRN Nausea & Vomiting, Start date: 11/16/12 18:01:00, Stop date: 12/16/12 18:00:00, nauea ondansetron 8 8 mg, 1 tab, PO Active [facility] mg oral tablet, PO, Q8H, PRN, 2012 Medical disintegrating Dissolve Center under tongue, 10 tab, as needed for nausea/vomiti ng, Substitution Allowed
D issolve under tongue Effient 10 mg 10 mg, 1 tab, PO Active [place] oral tablet PO, Daily, 2012 Medical tab, Center Substitution Allowed, TAB tramadol 50 mg 50 mg, 1 tab, PO Active [facility] [place] oral tablet PO, Q4H, PRN, 2012 Medical 60 tab, for Center pain, Substitution Allowed, TAB clonazepam 0.5 0.5 mg, 1 PO Active [facility] [place] mg oral tablet tab, PO, TID, 2013 Medical Substitution Center Allowed, TAB Reglan 10 mg, Route: IVP No Longer [facility] IVP, ONCE, Active 2012 Medical Dosing Weight Center 100, kg, Priority: STAT, Start date: 11/16/12 16:16:00, Stop date: 11/16/12 16:16:00 magnesium 1 gm, 2 mL, IV No Longer [facility] [place] sulfate Route: IV, Active 2012 Medical Drug form: [facility] INJ, ONCE, Dosing Weight 100, kg, Priority: STAT, Start date: 11/16/12 15:50:00, Stop date: 11/16/12 15:50:00 Omnipaque 100 mL, IVP No Longer [facility] [place] 350mg/ml Route: IVP, Active 2012 Medical Drug Form: [place] SOLN, Dosing Weight 100, kg, ONCALL, STAT, Start date: 11/16/12 15:35:00, Duration: 1 doses or times, Dose=2.2ml/kg , Max [id number] -- "To be infused by Radiology Staff ONLY"
Dos e=2.2ml/kg, Max [id number] -- "To be infused by Radiology Staff ONLY" Lactated 1,000 mL, IV No Longer [facility] Ringers (Bolus) Rate: 1,000 Active 2012 Medical IV 1,000 mL ml/hr, Infuse Center over: 1 hr, Route: IV, kg, Total Volume: 1,000, Bolus Dose, Priority: STAT, Start date: 11/16/12 15:06:00, Duration: 1 doses or times, Stop date: 11/16/12 16:05:00 magnesium 1 gm, Route: IVPB No Longer [facility] sulfate IVPB, Drug Active 2012 Medical form: INJ, Center ONCE, Dosing Weight 100, kg, Start date: 11/16/12 14:51:00, Stop date: 11/16/12 14:51:00 Ativan 1 mg, 0.5 mL, IVP No Longer [facility] Route: IVP, Active 2012 Medical Drug form: [place] INJ, ONCE, Dosing Weight 100, kg, Priority: STAT, Start date: 11/16/12 13:55:00, Stop date: 11/16/12 13:55:00 morphine 4 mg, 1 mL, IVP No Longer [facility] Sulfate Route: IVP, Active 2012 Medical Drug form: [facility] INJ, ONCE, Dosing Weight 100, kg, Priority: STAT, Start date: 11/16/12 13:40:00, Stop date: 11/16/12 13:40:00 nitroglycerin 0.4 mg, 1 SL No Longer [facility] 0.4 mg tab, Route: Active 2012 Medical sublingual SL, Drug Center tablet form: TAB, ONCE, Dosing Weight 100, kg, Start date: 11/16/12 13:30:00, Stop date: 11/16/12 13:30:00 aspirin 324 mg, 4 CHEW No Longer [facility] tab, Route: Active 2012 Medical CHEW, Drug Center form: CHEWTAB, ONCE, Dosing Weight 100, kg, Priority: STAT, Start date: 11/16/12 13:29:00, Stop date: 11/16/12 13:29:00 Zofran 8 mg, 4 mL, IVP No Longer [facility] Route: IVP, Active 2012 Medical Drug form: [place] INJ, ONCE, Dosing Weight 100, kg, Priority: STAT, Start date: 11/16/12 13:17:00, Stop date: 11/16/12 13:17:00 Saline Flush 5 mL, Route: IVP No Longer [facility] 0.9% IVP, Drug Active 2012 Medical Form: INJ, Center Dosing Weight 100, kg, Q8H, PRN Line Flush, Start date: 11/16/12 13:16:00, Duration: 30 day, Stop date: 12/16/12 13:15:00, Administer at least once every 8 hours
Adm inister at least once every 8 hours Reglan 10 mg 10 mg, 1 tab, PO Active [facility] [place] oral tablet PO, 2012 Medical TID-Before Center Meals, PRN, 42 tab, nausea, Substitution Allowed, TAB [place] 5/325 1 tab, PO, PO Active [facility] [place] oral tablet Q6H, PRN, 10 2012 Medical tab, Pain, Center Substitution Allowed, Maintenance, TAB ondansetron 8 8 mg, 1 tab, PO Active [facility] mg oral tablet, PO, Q8H, PRN, 2012 Medical disintegrating 60 tab, 1, 1, Center Nausea, Substitution Allowed, TABDIS insulin detemir 12 unit, 0.12 SUB-Q Active [facility] 100 units/mL mL, SUB-Q, 2012 Medical subcutaneous Bedtime, 4 Center solution mL, Substitution Allowed, INJ insulin detemir 15 unit, 0.15 SUB-Q Active [facility] 100 units/mL mL, SUB-Q, 2012 Medical subcutaneous Daily, 5 mL, [place] solution Substitution Allowed, INJ Zofran 4 mg, 1 tab, PO No Longer [facility] Route: PO, Active 2012 Medical Drug form: [place] TAB, Q8H, Dosing Weight 100, kg, Start date: 11/14/12 16:00:00, Duration: 30 day, Stop date: 12/14/12 8:00:00 Reglan 10 mg 10 mg, 1 tab, PO No Longer [facility] oral tablet Route: PO, Active 2012 Medical Drug form: [place] TAB, TID-Before Meals, Dosing Weight 100, kg, Start date: 11/14/12 11:30:00, Duration: 30 day, Stop date: 12/14/12 7:30:00 calcium 2,000 mg, 20 IVPB No Longer [facility] gluconate + mL, Route: Active 2012 [facility] Sodium Chloride IVPB, Drug Center 0.9% IV 100 mL form: INJ, Q2H, Dosing Weight 100, kg, Total etns=4689 mg, Start date: 11/14/12 8:00:00, Duration: 2 doses or times, Stop date: 11/14/12 10:00:00 magnesium 2 gm, 50 mL, IVPB No Longer [facility] sulfate Route: IVPB, Active 2012 Medical Drug form: [place] INJ, Q2H, Dosing Weight 100, kg, Total dose=4 gm, Start date: 11/13/12 10:00:00, Duration: 2 doses or times, Stop date: 11/13/12 12:00:00 Omnipaque 118 mL, IVP No Longer [facility] 350mg/ml Route: IVP, Active 2012 Medical Drug Form: [place] SOLN, Dosing Weight 100, kg, ONCALL, STAT, Start date: 11/13/12 9:33:00, Duration: 1 doses or times, Stop date: 11/14/12 0:00:00, Weight=95 - 109kg -- "To be infused by Radiology Staff ONLY"
Axel ght=95 - 109kg -- "To be infused by Radiology Staff ONLY" potassium 20 mEq, 100 IVPB No Longer [facility] chloride mL, Route: Active 2012 Medical IVPB, Drug Center form: INJ, ONCE, Dosing Weight 100, kg, Total dose=20mEq, Start date: 11/13/12 7:58:00, Duration: 1 doses or times, Stop date: 11/13/12 7:58:00, For K=3.5 - 3.9 mEq/L
For K=3.5 - 3.9 mEq/L calcium 1,000 mg, 10 IVPB No Longer [facility] gluconate + mL, Route: Active 2012 Medical Sodium Chloride IVPB, ONCE, [place] 0.9% IV 50 mL Dosing Weight 100, kg, Start date: 11/13/12 7:56:00, Stop date: 11/13/12 7:56:00 Reglan 10 mg, 2 mL, IVP No Longer [facility] Route: IVP, Active 2012 Medical Drug form: [place] INJ, Before Meals & Bedtime, Dosing Weight 100, kg, Start date: 11/12/12 16:30:00, Duration: 30 day, Stop date: 12/12/12 11:30:00 [place] 5/325 1 tab, Route: PO No Longer [facility] [place] oral tablet PO, Drug Active jaida 2012 Medical Form: TAB, Center Dosing Weight 100, kg, Q6H, PRN Pain, Start date: 11/12/12 16:07:00, Duration: 30 day, Stop date: 12/12/12 16:06:00 Reglan 10 mg, Route: IVP No Longer [facility] IVP, Q6H, Active 2012 Medical Dosing Weight Center 100, kg, PRN Nausea & Vomiting, Start date: 11/12/12 12:35:00, Duration: 30 day, Stop date: 12/12/12 12:34:00 insulin detemir 15 unit, SUB-Q No Longer [facility] Route: SUB-Q, Active 2012 Medical ONCE, Dosing Center Weight 100, kg, Priority: NOW, Start date: 11/12/12 10:38:00, Stop date: 11/12/12 10:38:00 heparin 7,500 unit, SUB-Q No Longer Cardoza [facility] 1.5 mL, Active 2012 Medical Route: SUB-Q, Center Drug form: INJ, Q8H, Start date: 11/11/12 18:00:00, Duration: 30 day, Stop date: 12/11/12 16:00:00 Levemir FlexPen 15 unit, 0.15 SUB-Q No Longer [facility] mL, Route: Active 2012 Medical SUB-Q, Drug Center form: INJ, Daily, Dosing Weight 100, kg, Start date: 11/11/12 10:00:00, Stop date: 12/11/12 9:00:00 magnesium 2 gm, 50 mL, IVPB No Longer [facility] sulfate Route: IVPB, Active 2012 Medical Drug form: Center INJ, ONCE, Dosing Weight 100, kg, Total dose=2 gm, Start date: 11/11/12 9:04:00, Duration: 1 doses or times, Stop date: 11/11/12 9:04:00 insulin detemir 20 unit, 0.2 SUB-Q No Longer [facility] mL, Route: Active 2012 Medical SUB-Q, Drug Center form: INJ, Daily, Dosing Weight 100, kg, Start date: 11/11/12 9:00:00, Stop date: 12/10/12 9:00:00 Toradol 15 15 mg, 1 mL, IV No Longer [facility] mg/mL Route: IV, Active 2012 Medical injectable Drug form: Center solution INJ, ONCE, Dosing Weight 100, kg, Start date: 11/11/12 0:56:00, Stop date: 11/11/12 0:56:00 Zofran 4 mg, 2 mL, IV No Longer [facility] Route: IV, Active 2012 Medical Drug form: Center INJ, Q8H, Dosing Weight 100, kg, Start date: 11/11/12 0:00:00, Duration: 30 day, Stop date: 12/10/12 16:00:00 normal saline 1,000 mL, IV No Longer [facility] [place] 0.9% IV 1,000 Rate: 100 Active 2012 Medical mL ml/hr, Infuse Center over: 10 hr, Route: IV, kg, Total Volume: 1,000, Start date: 11/10/12 20:17:00, Duration: 30 day, Stop date: 12/10/12 20:16:00 Sodium Chloride 1,000 mL, IV No Longer [facility] 0.9% (Bolus) IV Rate: 1,000 Active 2012 Medical 1,000 mL ml/hr, Infuse Center over: 1 hr, Route: IV, kg, Total Volume: 1,000, Priority: STAT, Start date: 11/10/12 20:17:00, Duration: 1 doses or times, Stop date: 11/10/12 21:16:00, Bolus Dose
B olus Dose insulin detemir 10 unit, 0.1 SUB-Q No Longer [facility] mL, Route: Active 2012 Medical SUB-Q, Drug Center form: INJ, ONCE, Dosing Weight 100, kg, Priority: NOW, Start date: 11/10/12 11:40:00, Stop date: 11/10/12 11:40:00 Zofran ODT 4 mg, 1 tab, PO No Longer [facility] Route: PO, Active 2012 Medical Drug form: Center TABDIS, Q8H, Dosing Weight 100, kg, PRN Nausea, Start date: 11/10/12 11:04:00, Duration: 30 day, Stop date: 12/10/12 11:03:00 Phenergan 12.5 mg, 0.5 IM No Longer [facility] [place] mL, Route: Active 2012 Medical IM, Drug Center form: INJ, PRN, Dosing Weight 100, kg, PRN as needed for nausea/vomiti ng, Start date: 11/10/12 10:00:00, Duration: 30 day, Stop date: 12/10/12 10:59:00 insulin detemir 16 unit, 0.16 SUB-Q No Longer [facility] mL, Route: Active 2012 Medical SUB-Q, Drug Center form: INJ, ONCE, Dosing Weight 100, kg, Start date: 11/10/12 0:20:00, Stop date: 11/10/12 0:20:00 NovoLog 6 unit, 0.06 SUB-Q No Longer [facility] mL, Route: Active 2012 Medical SUB-Q, Drug Center form: SOLN, TID-Before Meals, Dosing Weight 100, kg, Start date: 11/09/12 16:30:00, Duration: 30 day, Stop date: 12/09/12 11:30:00 insulin aspart 7 unit, 0.07 SUB-Q No Longer [facility] mL, Route: Active 2012 Medical SUB-Q, Drug Center form: SOLN, ONCE, Dosing Weight 100, kg, Start date: 11/09/12 13:24:00, Stop date: 11/09/12 13:24:00 insulin detemir 20 unit, 0.2 SUB-Q No Longer [facility] mL, Route: Active 2012 Medical SUB-Q, Drug Center form: INJ, Daily, Dosing Weight 100, kg, Start date: 11/09/12 9:00:00, Duration: 30 day, Stop date: 12/08/12 9:00:00 morphine 1 mg, 0.5 mL, IV No Longer [facility] Sulfate Route: IV, Active 2012 Medical Drug form: Center INJ, ONCE, Dosing Weight 100, kg, Start date: 11/09/12 5:28:00, Stop date: 11/09/12 5:28:00 insulin detemir 12 unit, 0.12 SUB-Q No Longer [facility] mL, Route: Active 2012 Medical SUB-Q, Drug Center form: INJ, Bedtime, Dosing Weight 100, kg, Start date: 11/08/12 21:00:00, Stop date: 12/07/12 21:00:00 morphine 2 mg, 1 mL, IVP No Longer [facility] Sulfate Route: IVP, Active 2012 Medical Drug form: [place] INJ, ONCE, Dosing Weight 100, kg, Start date: 11/08/12 18:34:00, Stop date: 11/08/12 18:34:00 ampicillin + 1,500 mg, IVPB No Longer [facility] Sodium Chloride Route: IVPB, Active 2012 Medical 0.9% IV 100 mL Drug form: [place] PDR/INJ, [id number], Dosing Weight 100, kg, Start date: 11/08/12 18:00:00, Duration: 30 day, Stop date: 12/08/12 12:00:00 ciprofloxacin 500 mg, 1 PO No Longer [facility] tab, Route: Active 2012 Medical PO, Drug Center form: TAB, [id number], Dosing Weight 100, kg, Start date: 11/08/12 17:00:00, Duration: 30 day, Stop date: 12/08/12 5:00:00 Rocephin 1 gm, Route: IVPB No Longer [facility] IVPB, Drug Active 2012 Medical form: [place] PDR/INJ, ONCE, Dosing Weight 100, kg, Start date: 11/08/12 13:11:00, Stop date: 11/08/12 13:11:00 insulin aspart 2 unit, 0.02 SUB-Q No Longer [facility] mL, Route: Active 2012 Medical SUB-Q, Drug Center form: SOLN, TID-Before Meals, Dosing Weight 100, kg, PRN Blood Glucose Results, Start date: 11/08/12 10:45:00, Duration: 30 day, Stop date: 12/08/12 10:44:00 insulin aspart 2 unit, 0.02 SUB-Q No Longer [facility] mL, Route: Active 2012 Medical SUB-Q, Drug Center form: SOLN, TID-Before Meals, Dosing Weight 100, kg, PRN Blood Glucose Results, Start date: 11/07/12 18:47:00, Duration: 30 day, Stop date: 12/07/12 18:46:00 magnesium 2 gm, 50 mL, IVPB No Longer [facility] sulfate Route: IVPB, Active 2012 Medical Drug form: Center INJ, Q2H, Dosing Weight 100, kg, Start date: 11/07/12 8:00:00, Duration: 2 doses or times, Stop date: 11/07/12 10:00:00, For Mg=1.5 - 1.7 mg/dL
For Mg=1.5 - 1.7 mg/dL magnesium 2 gm, Route: IVPB No Longer Loida [facility] sulfate IVPB, Drug Active 2012 Medical form: SOLN, Center ONCE, Dosing Weight 100, kg, Start date: 11/07/12 7:42:00, Duration: 1 doses or times, Stop date: 11/07/12 7:42:00, For Mg=1.8 - 2 mg/dL
For Mg=1.8 - 2 mg/dL Protonix 40 mg, Route: IVP No Longer [facility] IVP, Drug Active 2012 Medical form: INJ, Center Before Breakfast, Dosing Weight 100, kg, Start date: 11/07/12 7:30:00, Duration: 30 day, Stop date: 12/06/12 7:30:00 insulin aspart 10 unit, 0.1 SUB-Q No Longer [facility] mL, Route: Active 2012 Medical SUB-Q, Drug Center form: SOLN, ONCE, Dosing Weight 100, kg, Start date: 11/06/12 13:32:00, Stop date: 11/06/12 13:32:00 adenosine 84 mg, Route: IVP No Longer [facility] IVP, ONCE, Active 2012 Medical Dosing Weight Center 100, kg, Priority: Routine, Start date: 11/06/12 10:20:00, Stop date: 11/06/12 10:20:00 Insulin regular 10 unit, 0.1 SUB-Q No Longer [facility] mL, Route: Active 2012 Medical SUB-Q, Drug Center form: SOLN, ONCE, Dosing Weight 100, kg, Start date: 11/06/12 9:47:00, Stop date: 11/06/12 9:47:00 insulin aspart 10 unit, 0.1 SUB-Q No Longer [facility] mL, Route: Active 2012 Medical SUB-Q, Drug Center form: SOLN, ONCE, Dosing Weight 100, kg, Start date: 11/06/12 9:43:00, Stop date: 11/06/12 9:43:00 Lactated 1,000 mL, IV No Longer [facility] Ringers (Bolus) Rate: 1,000 Active 2012 Medical IV 1,000 mL ml/hr, Infuse Center over: 1 hr, Route: IV, kg, Total Volume: 1,000, Bolus Dose, Priority: STAT, Start date: 11/06/12 9:14:00, Duration: 1 doses or times, Stop date: 11/06/12 10:13:00 Insulin regular 9 unit, 0.09 SUB-Q No Longer Ole[facility]ki [facility] mL, Route: Active 2012 Medical SUB-Q, Drug Center form: SOLN, TID-Before Meals, Dosing Weight 100, kg, PRN Blood Glucose Results, Start date: 11/06/12 9:12:00, Duration: 30 day, Stop date: 12/06/12 9:11:00 glucagon 1 mg, Route: IM No Longer [facility] IM, Drug Active 2012 Medical form: Center PDR/INJ, PRN, Dosing Weight 100, kg, PRN Blood Glucose Results, Start date: 11/06/12 9:12:00, Duration: 30 day, Stop date: 12/06/12 10:11:00 Dextrose 50% 12.5 gm, 25 IVP No Longer [facility] Syringe mL, Route: Active 2012 Medical IVP, Drug Center Form: INJ, Dosing Weight 100, kg, PRN, PRN Blood Glucose Results, Start date: 11/06/12 9:12:00, Duration: 30 day, Stop date: 12/06/12 10:11:00 Sodium Chloride 1,000 mL, IV No Longer [facility] 0.9% (Bolus) IV Rate: 1,000 Active 2012 Medical 1,000 mL ml/hr, Infuse Center over: 1 hr, Route: IV, kg, Total Volume: 1,000, Priority: STAT, Start date: 11/06/12 9:06:00, Duration: 1 doses or times, Stop date: 11/06/12 10:05:00, Bolus Dose
Bolu s Dose heparin 5000 7,500 unit, SUB-Q No Longer [facility] units/mL 1.5 mL, Active 2012 Medical injectable Route: SUB-Q, [place] solution Drug form: INJ, Q12H, Dosing Weight 104.545, kg, Start date: 11/06/12 9:00:00, Stop date: 12/05/12 21:00:00 prasugrel 10 mg, 1 tab, PO No Longer [facility] Route: PO, Active 2012 Medical Drug form: [place] TAB, Daily, Dosing Weight 100, kg, Start date: 11/06/12 9:00:00, Duration: 30 day, Stop date: 12/05/12 9:00:00 NIFEdipine 90 mg, 1 tab, PO No Longer [facility] Route: PO, Active 2012 Medical Drug form: [place] ERTAB, Daily, Dosing Weight 100, kg, Start date: 11/06/12 9:00:00, Duration: 30 day, Stop date: 12/05/12 9:00:00 Toprol-XL 100 100 mg, 1 PO No Longer [facility] mg oral tablet, tab, Route: Active 2012 Medical extended PO, Drug Center release form: ERTAB, Daily, Start date: 11/06/12 9:00:00, Duration: 30 day, Stop date: 12/05/12 9:00:00 magnesium oxide 400 mg, 1 PO No Longer [facility] tab, Route: Active 2012 Medical PO, Drug Center form: TAB, Daily, Dosing Weight 100, kg, Start date: 11/06/12 9:00:00, Duration: 30 day, Stop date: 12/05/12 9:00:00 aspirin 81 mg 81 mg, 1 tab, PO No Longer [facility] tablet, enteric Route: PO, Active 2012 Medical coated Drug form: [place] ECTAB, Daily, Dosing Weight 100, kg, Start date: 11/06/12 9:00:00, Duration: 30 day, Stop date: 12/05/12 9:00:00 Cymbalta 60 mg, 2 cap, PO No Longer [facility] Route: PO, Active 2012 Medical Drug form: [place] DRC, Daily, Dosing Weight 100, kg, Start date: 11/06/12 9:00:00, Duration: 30 day, Stop date: 12/05/12 9:00:00 Saline Flush 5 ml, Route: IVP No Longer [facility] 0.9% IVP, Drug Active 2012 Medical Form: INJ, [place] Dosing Weight 104.545, kg, Q12H, Start date: 11/06/12 9:00:00, Duration: 30 day, Stop date: 12/05/12 21:00:00 insulin aspart 4 unit, 0.04 SUB-Q No Longer [facility] mL, Route: Active 2012 Medical SUB-Q, Drug Center form: SOLN, TID-Before Meals, Dosing Weight 100, kg, Start date: 11/06/12 7:30:00, Duration: 30 day, Stop date: 12/05/12 16:30:00 metoclopramide 10 mg, 2 mL, IVP No Longer [facility] Route: IVP, Active 2012 Medical Drug form: Center INJ, Q6H, Dosing Weight 100, kg, PRN Nausea & Vomiting, Start date: 11/06/12 1:49:00, Duration: 30 day, Stop date: 12/06/12 1:48:00 Benadryl 25 mg, 0.5 IV No Longer [facility] mL, Route: Active 2012 Medical IV, Drug Center form: INJ, Q4H, Dosing Weight 100, kg, PRN as needed for nausea/vomiti ng, Start date: 11/06/12 1:44:00, Duration: 30 day, Stop date: 12/06/12 1:43:00 Phenergan 12.5 mg, 0.5 IVPB No Longer [facility] mL, Route: Active 2012 Medical IVPB, Drug Center form: INJ, Q6H, Dosing Weight 100, kg, PRN Nausea & Vomiting, Start date: 11/06/12 1:43:00, Stop date: 12/06/12 1:42:00 Benadryl 25 mg, 1 cap, PO No Longer [facility] Route: PO, Active 2012 Medical Drug form: Center CAP, TID, Dosing Weight 100, kg, PRN Nausea, Start date: 11/06/12 0:31:00, Duration: 30 day, Stop date: 12/06/12 0:30:00 labetalol 20 mg, 4 mL, IVP No Longer [facility] Route: IVP, Active 2012 Medical Drug form: Center INJ, ONCE, Dosing Weight 100, kg, Start date: 11/06/12 0:25:00, Stop date: 11/06/12 0:25:00 simvastatin 40 mg, 1 tab, PO No Longer [facility] Route: PO, Active 2012 Medical Drug form: Center TAB, Bedtime, Dosing Weight 100, kg, Start date: 11/05/12 23:00:00, Duration: 30 day, Stop date: 12/05/12 21:00:00 lisinopril 20 mg, 1 tab, PO No Longer [facility] Route: PO, Active 2012 Medical Drug form: Center TAB, Q12H, Dosing Weight 100, kg, Start date: 11/05/12 23:00:00, Duration: 30 day, Stop date: 12/05/12 21:00:00 insulin detemir 20 unit, 0.2 SUB-Q No Longer [facility] mL, Route: Active 2012 Medical SUB-Q, Drug Center form: INJ, Q12H, Dosing Weight 100, kg, Start date: 11/05/12 23:00:00, Stop date: 12/05/12 21:00:00 magnesium oxide 400 mg, 1 PO Active [place] 400 mg oral tab, PO, 2012 Medical tablet Daily, 10 Center tab, Substitution Allowed, TAB metoprolol 100 100 mg, 1 PO Active [place] mg oral tablet, tab, PO, 2012 Medical extended Daily, 30 Center release tab, Substitution Allowed NIFEdipine 90 90 mg, 1 tab, PO Active mg oral tablet, PO, Daily, 30 2012 Medical extended tab, Center release Substitution Allowed, ERTAB prasugrel 10 mg 10 mg, 1 tab, PO Active [facility] oral tablet PO, Daily, 30 2012 Medical tab, Center Substitution Allowed, TAB Cymbalta 60 mg, Daily, Active [facility] Substitution 2012 Medical Allowed Center tramadol 50 mg 50 mg, 1 tab, PO No Longer [facility] oral tablet Route: PO, Active 2012 Medical Drug form: [place] TAB, Q4H, Dosing Weight 100, kg, PRN For Pain, Start date: 11/05/12 22:39:00, Duration: 30 day, Stop date: 12/05/12 22:38:00 promethazine 25 mg, 1 tab, PO No Longer [facility] Route: PO, Active 2012 Medical Drug form: [place] TAB, Q6H, Dosing Weight 100, kg, PRN as needed for nausea/vomiti ng, Start date: 11/05/12 22:39:00, Duration: 30 day, Stop date: 12/05/12 22:38:00 Phenergan 25 mg, 1 tab, PO No Longer [facility] Route: PO, Active 2012 Medical Drug form: [place] TAB, Q4H, Dosing Weight 104.545, kg, PRN Nausea & Vomiting, Start date: 11/05/12 22:33:00, Duration: 30 day, Stop date: 12/05/12 22:32:00 Zofran 8 mg, 4 mL, IV No Longer [facility] Route: IV, Active 2012 Medical Drug form: [place] INJ, Q8H, Dosing Weight 104.545, kg, PRN Nausea, Start date: 11/05/12 22:32:00, Duration: 30 day, Stop date: 12/05/12 22:31:00 Saline Flush 5 ml, Route: IVP No Longer [facility] 0.9% IVP, Drug Active 2012 Medical Form: INJ, [place] Dosing Weight 104.545, kg, PRN, PRN Line Flush, Start date: 11/05/12 22:14:00, Duration: 30 day, Stop date: 12/05/12 23:13:00 Sodium Chloride 500 mL, Rate: IV No Longer [facility] 0.9% (Bolus) IV 2,000 ml/hr, Active 2012 Medical 500 mL Infuse over: [place] 15 minutes, Route: IV, kg, Total Volume: 500, Priority: STAT, Start date: 11/05/12 22:14:00, Duration: 1 doses or times, Stop date: 11/05/12 22:28:00 nitroglycerin 0.4 mg, 1 SL No Longer [facility] SL Tab tab, Route: Active 2012 Medical SL, Drug Center form: TAB, Q5Min, Dosing Weight 104.545, kg, PRN Chest Pain, Start date: 11/05/12 22:14:00, Duration: 3 doses or times, Stop date: Limited # of times Phenergan 12.5 mg, IVPB No Longer [facility] Route: IVPB, Active 2012 Medical ONCE, Dosing Center Weight 104.545, kg, Priority: STAT, Start date: 11/05/12 22:05:00, Stop date: 11/05/12 22:05:00 Phenergan 12.5 mg, 0.5 IVPB No Longer [facility] mL, Route: Active 2012 Medical IVPB, Drug Center form: INJ, ONCE, Dosing Weight 104.545, kg, Priority: STAT, Start date: 11/05/12 21:08:00, Stop date: 11/05/12 21:08:00 carvedilol 12.5 mg, 1 PO No Longer [facility] tab, Route: Active 2012 Medical PO, Drug Center form: TAB, ONCE, Dosing Weight 104.545, kg, Start date: 11/05/12 19:20:00, Stop date: 11/05/12 19:20:00 Effient 10 mg, 1 tab, PO No Longer [facility] Route: PO, Active 2012 Medical Drug form: Center TAB, ONCE, Dosing Weight 104.545, kg, Start date: 11/05/12 19:16:00, Stop date: 11/05/12 19:16:00 ondansetron 4 mg, 2 mL, IVP No Longer [facility] Route: IVP, Active 2012 Medical Drug form: Center INJ, ONCE, Dosing Weight 104.545, kg, Priority: STAT, Start date: 11/05/12 19:14:00, Stop date: 11/05/12 19:14:00 aspirin 324 mg, 4 PO No Longer [facility] tab, Route: Active 2012 Medical PO, Drug Center form: [place], ONCE, Dosing Weight 104.545, kg, Priority: STAT, Start date: 11/05/12 19:14:00, Stop date: 11/05/12 19:14:00 Saline Flush 5 mL, Route: IVP No Longer [facility] [place] 0.9% IVP, Drug Active 2012 Medical Form: INJ, Center Dosing Weight 104.545, kg, Q8H, PRN Line Flush, Start date: 11/05/12 19:14:00, Duration: 30 day, Stop date: 12/05/12 19:13:00, Administer at least once every 8 hours
Administer at least once every 8 hours promethazine 25 25 mg, 1 tab, Active [facility] mg oral tablet Q4H, PRN, as 2012 Medical needed for Center nausea/vomiti ng, Substitution Allowed aspirin 81 mg, Daily, Active [facility] Substitution 2012 Medical Allowed Center lisinopril 20 20 mg, 1 tab, PO Active [facility] mg oral tablet PO, Daily, 30 2012 Medical tab, Center Substitution Allowed, TAB Zofran 8 mg 8 mg, 1 tab, No Longer [facility] oral tablet Q8H, PRN, as Active 2012 Medical needed for Center nausea/vomiti ng, Substitution Allowed simvastatin 40 40 mg, 1 tab, PO Active [facility] mg oral tablet PO, Daily, 30 2012 Medical tab, Center Substitution Allowed, Maintenance insulin detemir 16 unit, 0.16 SUB-Q No Longer [facility] mL, Route: Active 2012 Medical SUB-Q, Drug Center form: INJ, Q12H, Dosing Weight 78.2, kg, Start date: 10/31/12 21:00:00, Duration: 30 day, Stop date: 11/30/12 9:00:00 insulin aspart 4 unit, 0.04 SUB-Q Active [facility] 100 units/mL mL, SUB-Q, 2013 Medical subcutaneous TID-Before Center solution Meals, 1 vial, 2, 2, Substitution Allowed, SOLN insulin detemir 16 unit, 0.16 SUB-Q Active [facility] [place] 100 units/mL mL, SUB-Q, 2012 Medical subcutaneous Q12H, 1 vial, Center solution 2, 2, Substitution Allowed, INJ tramadol 50 mg 50 mg, 1 tab, PO Active [place] 10/31/ [facility] [place] oral tablet PO, Q4H, PRN, 2012 Medical 30 tab, as Center needed for pain, Substitution Allowed, TAB simvastatin 40 40 mg, 1 tab, PO Active [place] 10/31/ [facility] [place] mg oral tablet PO, Bedtime, 2012 Medical 30 tab, 1, 1, Center Substitution Allowed, Maintenance, TAB promethazine 25 25 mg, 1 tab, PO Active [facility] 10/31/ [facility] [place] mg oral tablet PO, Q6H, PRN, 2012 Medical 60 tab, 1, 1, Center Nausea & Vomiting, Substitution Allowed, TAB prasugrel 10 mg 10 mg, 1 tab, PO Active [facility] 10/31/ [facility] [place] oral tablet PO, Daily, 30 2012 Medical tab, 1, 1, Center Substitution Allowed, TAB ondansetron 8 8 mg, 1 tab, PO Active [facility] 10/31/ [facility] [place] mg oral tablet, PO, Q8H, PRN, 2012 Medical disintegrating 60 tab, 1, 1, Center Nausea, Substitution Allowed, TABDIS NIFEdipine 90 90 mg, 1 tab, PO Active [facility] 10/31/ [place] mg oral tablet, PO, Daily, 30 2012 Medical extended tab, 1, 1, Center release Substitution Allowed, ERTAB Toprol-XL 100 100 mg, 1 PO Active [place] 10/31/ [place] mg oral tablet, tab, PO, 2012 Medical extended Daily, 30 Center release tab, 1, 1, Substitution Allowed, ERTAB magnesium oxide 400 mg, 1 PO Active [facility] 10/31/ [place] 400 mg oral tab, PO, 2013 Medical tablet Daily, 30 Center tab, 1, 1, Substitution Allowed, TAB lisinopril 20 20 mg, 1 tab, PO Active [place] 10/31/ [place] mg oral tablet PO, Q12H, 60 2012 Medical tab, 1, 1, Center Substitution Allowed, TAB aspirin 81 mg 81 mg, 1 tab, PO Active [place] 10/31/ [place] tablet, enteric PO, Daily, 30 2012 Medical coated tab, 1, 1, Center Substitution Allowed, ECTAB insulin aspart 6 unit, 0.06 SUB-Q No Longer [facility] mL, Route: Active 2012 Medical SUB-Q, Drug Center form: SOLN, TID-Before Meals, Dosing Weight 78.2, kg, PRN Blood Glucose Results, Start date: 10/31/12 8:40:00, Duration: 30 day, Stop date: 11/30/12 8:39:00 Phenergan 25 mg, 1 tab, PO No Longer [facility] Route: PO, Active 2012 Medical Drug form: [place] TAB, Q6H, Dosing Weight 78.2, kg, PRN Nausea & Vomiting, Start date: 10/30/12 8:06:00, Duration: 30 day, Stop date: 11/29/12 8:05:00 magnesium 1 gm, 50 mL, IVPB No Longer [facility] [facility] sulfate Route: IVPB, Active 2012 Medical Drug form: [place] INJ, ONCE, Dosing Weight 78.2, kg, Start date: 10/30/12 7:44:00, Stop date: 10/30/12 7:44:00 potassium 20 mEq, 15 PO No Longer [facility] 10/30[facility] chloride mL, Route: Active 2012 Medical PO, Drug Center form: LIQ, ONCE, Dosing Weight 78.2, kg, Start date: 10/30/12 7:44:00, Stop date: 10/30/12 7:44:00 Haldol 2 mg, 0.4 mL, IV No Longer [facility] Route: IV, Active 2012 Medical Drug form: [place] INJ, ONCE, Dosing Weight 78.2, kg, Start date: 10/30/12 5:42:00, Stop date: 10/30/12 5:42:00 tramadol 50 mg 50 mg, 1 tab, PO No Longer [place] [facility] oral tablet Route: PO, Active 2012 Medical Drug form: [place] TAB, Q4H, Dosing Weight 78.2, kg, PRN as needed for pain, Start date: 10/29/12 9:45:00, Duration: 30 day, Stop date: 11/28/12 9:44:00 Toradol 15 15 mg, 0.5 IV No Longer [facility] mg/mL mL, Route: Active 2012 Medical injectable IV, Drug Center solution form: INJ, ONCE, Dosing Weight 78.2, kg, Start date: 10/29/12 6:54:00, Stop date: 10/29/12 6:54:00 Toradol 15 15 mg, 0.5 IV No Longer [place] [facility] mg/mL mL, Route: Active 2012 Medical injectable IV, Drug Center solution form: INJ, ONCE, Dosing Weight 78.2, kg, Start date: 10/29/12 1:07:00, Stop date: 10/29/12 1:07:00 insulin detemir 20 unit, 0.2 SUB-Q No Longer [facility] mL, Route: Active 2012 Medical SUB-Q, Drug Center form: INJ, QPM, Dosing Weight 78.2, kg, Start date: 10/28/12 21:00:00, Duration: 30 day, Stop date: 11/27/12 17:00:00 Lasix 20 mg, 2 mL, IV No Longer [facility] Route: IV, Active 2012 Medical Drug form: Center INJ, ONCE, Dosing Weight 78.2, kg, Start date: 10/28/12 9:25:00, Stop date: 10/28/12 9:25:00 insulin detemir 16 unit, 0.16 SUB-Q No Longer [place] mL, Route: Active 2012 Medical SUB-Q, Drug Center form: INJ, QAM, Dosing Weight 78.2, kg, Start date: 10/28/12 9:00:00, Stop date: 11/26/12 9:00:00 NovoLog FlexPen 4 unit, 0.04 SUB-Q No Longer [facility] mL, Route: Active 2012 Medical SUB-Q, Drug Center form: SOLN, TID-Before Meals, Start date: 10/28/12 7:30:00, Stop date: 11/26/12 16:30:00 magnesium 2 gm, 50 mL, IVPB No Longer [facility] sulfate Route: IVPB, Active 2012 Medical Drug form: Center INJ, Q2H, Dosing Weight 78.2, kg, Total dose=4 gm, Start date: 10/28/12 4:00:00, Duration: 2 doses or times, Stop date: 10/28/12 6:00:00 potassium 20 mEq, 100 IVPB No Longer [facility] chloride mL, Route: Active 2012 Medical IVPB, Drug Center form: INJ, Q2H, Dosing Weight 78.2, kg, Total dose=40 mEq, Start date: 10/28/12 4:00:00, Duration: 2 doses or times, Stop date: 10/28/12 6:00:00 calcium 1,000 mg, 10 IVPB No Longer [facility] gluconate + mL, Route: Active 2012 Medical Sodium Chloride IVPB, Drug Center 0.9% IV 100 mL form: INJ, ONCE, Dosing Weight 78.2, kg, Start date: 10/28/12 3:53:00, Stop date: 10/28/12 3:53:00 labetalol 20 mg, Route: IVP No Longer [facility] IVP, Drug Active 2012 Medical form: INJ, Center ONCE, Dosing Weight 78.2, kg, Start date: 10/27/12 19:28:00, Stop date: 10/27/12 19:28:00 labetalol 20 mg, 4 mL, IVP No Longer [facility] Route: IVP, Active 2012 Medical Drug form: Center INJ, ONCE, Dosing Weight 78.2, kg, Start date: 10/27/12 17:28:00, Stop date: 10/27/12 17:28:00 Benadryl 25 mg, 1 cap, PO No Longer [facility] Route: PO, Active 2012 Medical Drug form: Center CAP, ONCE, Dosing Weight 78.2, kg, Start date: 10/27/12 17:28:00, Stop date: 10/27/12 17:28:00 Reglan 10 mg 10 mg, Route: PO No Longer [facility] oral tablet PO, Drug Active 2012 Medical form: TAB, Center Before Meals & Bedtime, Dosing Weight 78.2, kg, Start date: 10/27/12 16:30:00, Duration: 30 day, Stop date: 11/26/12 11:30:00 Reglan 5 mg, 1 mL, IV No Longer [facility] Route: IV, Active 2012 Medical Drug form: Center INJ, Q8H, Dosing Weight 78.2, kg, Start date: 10/27/12 16:00:00, Duration: 30 day, Stop date: 11/26/12 8:00:00 Reglan 5 mg, 1 mL, IV No Longer [facility] Route: IV, Active 2012 Medical Drug form: [place] INJ, Q8H, Dosing Weight 78.2, kg, PRN Nausea, Start date: 10/27/12 13:08:00, Duration: 30 day, Stop date: 11/26/12 13:07:00 lisinopril 20 mg, 1 tab, PO No Longer [facility] Route: PO, Active 2012 Medical Drug form: [place] TAB, Q12H, Dosing Weight 78.2, kg, Start date: 10/27/12 10:00:00, Duration: 30 day, Stop date: 11/26/12 9:00:00 ergocalciferol 50,000 [facility] [place] [facility], 1 Active 2012 Medical cap, Route: [place] PO, Drug form: CAP, Daily, Dosing Weight 78.2, kg, Start date: 10/27/12 9:00:00, Duration: 4 day, Stop date: 10/30/12 9:00:00 magnesium oxide 400 mg, 1 PO No Longer [facility] tab, Route: Active 2012 Medical PO, Drug Center form: TAB, Daily, Dosing Weight 78.2, kg, Start date: 10/27/12 9:00:00, Duration: 30 day, Stop date: 11/25/12 9:00:00 Toprol-XL 100 100 mg, 1 PO No Longer [facility] mg oral tablet, tab, Route: Active 2012 [facility] extended PO, Drug Center release form: ERTAB, Daily, Start date: 10/27/12 9:00:00, Duration: 30 day, Stop date: 11/25/12 9:00:00 insulin aspart 7 unit, SUB-Q No Longer [facility] Route: SUB-Q, Active 2012 Medical Drug form: [place] SOLN, TID-Before Meals, Dosing Weight 78.2, kg, Start date: 10/26/12 12:00:00, Duration: 30 day, Stop date: 11/25/12 11:30:00 Insulin regular 10 unit, 0.1 SUB-Q No Longer [facility] [place] mL, Route: Active 2012 Medical SUB-Q, Drug Center form: SOLN, ONCE, Dosing Weight 78.2, kg, Start date: 10/26/12 10:32:00, Stop date: 10/26/12 10:32:00 NIFEdipine 90 mg, 1 tab, PO No Longer [facility] [place] extended Route: PO, Active 2012 Medical release Drug form: [place] ERTAB, Daily, Dosing Weight 78.2, kg, Start date: 10/26/12 9:00:00, Duration: 30 day, Stop date: 11/24/12 9:00:00 metoprolol 25 mg, 1 tab, PO No Longer [place] [facility] tartrate Route: PO, Active 2012 Medical Drug form: [place] TAB, Q12H, Dosing Weight 78.2, kg, Start date: 10/26/12 9:00:00, Duration: 30 day, Stop date: 11/24/12 21:00:00 Reglan 10 mg, 1 tab, PO No Longer [place] [facility] Route: PO, Active 2012 Medical Drug form: [place] TAB, Before Meals & Bedtime, Dosing Weight 78.2, kg, Start date: 10/25/12 16:30:00, Duration: 30 day, Stop date: 11/24/12 11:30:00 potassium 20 mEq, 100 IVPB No Longer [place] [facility] chloride mL, Route: Active 2012 Medical IVPB, Drug Center form: INJ, Q2H, Dosing Weight 78.2, kg, Total dose=40 mEq, Start date: 10/25/12 16:00:00, Duration: 2 doses or times, Stop date: 10/25/12 18:00:00 magnesium 2 gm, 50 mL, IVPB No Longer [facility] sulfate Route: IVPB, Active 2012 Medical Drug form: Center INJ, Q2H, Dosing Weight 78.2, kg, Total dose=4 gm, Start date: 10/25/12 16:00:00, Duration: 2 doses or times, Stop date: 10/25/12 18:00:00 potassium 40 mEq, 2 PO No Longer [facility] chloride 20 mEq tab, Route: Active 2012 Medical oral tablet, PO, Drug Center extended form: ERTAB, release ONCE, Dosing Weight 78.2, kg, Start date: 10/25/12 14:50:00, Stop date: 10/25/12 14:50:00 Procardia XL 30 mg, 1 tab, PO No Longer [facility] Route: PO, Active 2012 Medical Drug form: Center ERTAB, ONCE, Dosing Weight 78.2, kg, Start date: 10/25/12 14:49:00, Stop date: 10/25/12 14:49:00 1/2 NS 1,000 mL 1,000 mL, IV No Longer [facility] [place] Rate: 100 Active 2012 Medical ml/hr, Infuse Center over: 10 hr, Route: IV, kg, Total Volume: 1,000, Start date: 10/25/12 13:52:00, Duration: 30 day, Stop date: 11/24/12 13:51:00 atenolol 100 mg, 1 PO No Longer [facility] tab, Route: Active 2012 Medical PO, Drug Center form: TAB, Daily, Dosing Weight 78.2, kg, Start date: 10/25/12 9:00:00, Duration: 30 day, Stop date: 11/23/12 9:00:00 Protonix 40 mg, Route: IVP No Longer [facility] IVP, Drug Active 2012 Medical form: INJ, Center Daily, Dosing Weight 78.2, kg, Start date: 10/25/12 9:00:00, Duration: 30 day, Stop date: 11/23/12 9:00:00 NovoLog FlexPen 6 unit, 0.06 SUB-Q No Longer [facility] mL, Route: Active 2012 Medical SUB-Q, Drug Center form: SOLN, TID-Before Meals, Start date: 10/25/12 7:30:00, Duration: 30 day, Stop date: 11/23/12 16:30:00 insulin lispro 6 unit, SUB-Q No Longer [facility] Route: SUB-Q, Active 2012 Medical TID-Before Center Meals, Dosing Weight 78.2, kg, Start date: 10/25/12 7:30:00, Duration: 30 day, Stop date: 11/23/12 16:30:00 Lactated 1,000 mL, IV No Longer [facility] IV Rate: 250 Active 2012 Medical 1,000 mL ml/hr, Infuse Center over: 4 hr, Route: IV, kg, Total Volume: 1,000, Start date: 10/25/12 5:50:00, Duration: 30 day, Stop date: 11/24/12 5:49:00 Lactated 1,000 mL, IV No Longer [facility] ([facility]olus) Rate: 100 Active 2012 Medical IV 1,000 mL ml/hr, Infuse Center over: 10 hr, Route: IV, kg, Total Volume: 1,000, Start date: 10/25/12 5:50:00, Duration: 1 doses or times, Stop date: 10/25/12 15:49:00 insulin aspart 9 unit, 0.09 SUB-Q No Longer [facility] mL, Route: Active 2012 Medical SUB-Q, Drug Center form: SOLN, TID-Before Meals, Dosing Weight 78.2, kg, PRN Blood Glucose Results, Start date: 10/25/12 3:53:00, Duration: 30 day, Stop date: 11/24/12 3:52:00 glucagon 1 mg, Route: IM No Longer [facility] IM, Drug Active 2012 Medical form: Center PDR/INJ, PRN, Dosing Weight 78.2, kg, PRN Blood Glucose Results, Start date: 10/25/12 3:53:00, Duration: 30 day, Stop date: 11/24/12 4:52:00 Dextrose 50% 12.5 gm, 25 IVP No Longer [facility] Syringe mL, Route: Active 2012 Medical IVP, Drug Center Form: INJ, Dosing Weight 78.2, kg, PRN, PRN Blood Glucose Results, Start date: 10/25/12 3:53:00, Duration: 30 day, Stop date: 11/24/12 4:52:00 Dextrose 50% 25 mL, Route: IVP No Longer [facility] Syringe IVP, Dosing Active 2012 Medical Weight 78.2, Center kg, PRN, PRN Blood Glucose Results, Start date: 10/25/12 3:52:00, Duration: 30 day, Stop date: 11/24/12 4:51:00 glucagon 1 mg, Route: IM No Longer [facility] IM, PRN, Active 2012 Medical Dosing Weight Center 78.2, kg, PRN Blood Glucose Results, Start date: 10/25/12 3:52:00, Duration: 30 day, Stop date: 11/24/12 4:51:00 Neutra-Phos 2 pkt, Route: PO No Longer [facility] PO, Drug Active 2012 Medical Form: Center PDR/REC, Dosing Weight 78.2, kg, ONCE, Start date: 10/25/12 1:07:00, Stop date: 10/25/12 1:07:00 insulin detemir 25 unit, 0.25 SUB-Q No Longer [facility] mL, Route: Active 2012 Medical SUB-Q, Drug Center form: INJ, Q12H, Dosing Weight 78.2, kg, Priority: NOW, Start date: 10/25/12 1:06:00, Stop date: 11/23/12 21:00:00 heparin 5000 5,000 unit, 1 SUB-Q No Longer [facility] units/mL mL, Route: Active 2012 Medical injectable SUB-Q, Drug Center solution form: INJ, Q8H, Dosing Weight 78.2, kg, Start date: 10/25/12 0:00:00, Duration: 30 day, Stop date: 11/23/12 16:00:00 Effient 10 mg, Route: PO No Longer [facility] PO, Q12H, Active 2012 Medical Dosing Weight Center 78.2, kg, Start date: 10/24/12 21:00:00, Duration: 30 day, Stop date: 11/23/12 9:00:00 Saline Flush 10 mL, Route: IVP No Longer [facility] 0.9% IVP, Drug Active 2012 Medical Form: INJ, Center Dosing Weight 78.2, kg, Q12H, Start date: 10/24/12 21:00:00, Duration: 30 day, Stop date: 11/23/12 9:00:00 Neutra-Phos 2 pkt, Route: PO No Longer [facility] [place] PO, Drug Active 2012 Medical Form: Center PDR/REC, Dosing Weight 78.2, kg, ONCE, Start date: 10/24/12 20:35:00, Stop date: 10/24/12 20:35:00 potassium 20 mEq, 100 IVPB No Longer [facility] [place] chloride mL, Route: Active 2012 Medical IVPB, Drug Center form: INJ, ONCE, Dosing Weight 78.2, kg, Start date: 10/24/12 20:34:00, Stop date: 10/24/12 20:34:00 enalapril 1.25 mg, 1 IVP No Longer [facility] [place] mL, Route: Active 2012 [facility] IVP, Drug Center form: INJ, Q6H, Dosing Weight 78.2, kg, Start date: 10/24/12 18:00:00, Duration: 30 day, Stop date: 11/23/12 12:00:00 morphine 4 mg, 1 mL, IVP No Longer [facility] Sulfate Route: IVP, Active 2012 Medical Drug form: Center INJ, ONCE, Dosing Weight 78.2, kg, Start date: 10/24/12 16:56:00, Stop date: 10/24/12 16:56:00 insulin lispro 6 unit, SUB-Q No Longer [facility] SUB-Q, Active 2012 [facility] TID-Before Center Meals, Substitution Allowed Levemir 15 unit, SUB-Q No Longer [facility] SUB-Q, Q12H, Active 2012 Medical Substitution Center Allowed D5W 1/2NS 1,000 1,000 mL, IV No Longer [facility] [place] mL Rate: 125 Active 2012 [facility] ml/hr, Infuse Center over: 8 hr, Route: IV, kg, Total Volume: 1,000, Start date: 10/24/12 16:06:00, Duration: 30 day, Stop date: 11/23/12 16:05:00 metoprolol 25 mg, 1 tab, PO No Longer [facility] tartrate Route: PO, Active 2012 Medical Drug form: [place] TAB, Q8H, Dosing Weight 78.2, kg, Start date: 10/24/12 16:00:00, Duration: 30 day, Stop date: 11/23/12 8:00:00 clonazepam 0.5 mg, 1 PO No Longer [facility] tab, Route: Active 2012 Medical PO, Drug Center form: TAB, ONCE, Dosing Weight 78.2, kg, Start date: 10/24/12 15:03:00, Stop date: 10/24/12 15:03:00 NIFEdipine 60 mg, 1 tab, PO No Longer [facility] extended Route: PO, Active 2012 Medical release Drug form: [place] ERTAB, Daily, Dosing Weight 78.2, kg, Start date: 10/24/12 14:32:00, Duration: 30 day, Stop date: 11/23/12 9:00:00 Saline Flush 10 mL, Route: IVP No Longer [facility] 0.9% IVP, Drug Active 2012 Medical Form: INJ, Center Dosing Weight 78.2, kg, PRN, PRN Line Flush, Start date: 10/24/12 13:41:00, Duration: 30 day, Stop date: 11/23/12 13:41:00 D5W 1/2NS + KCL 1,000 mL, [facility] 40mEq/L 1000ml Rate: 125 Active 2012 Medical ([facility]) 1,000 ml/hr, Infuse Center mL over: 8 hr, Route: IV, kg, Total Volume: 1,000, Priority: STAT, Start date: 10/24/12 12:37:00, Duration: 30 day, Stop date: 11/23/12 12:36:00 Lactated 1,000 mL, IV No Longer [facility] ([facility]ol[facility]) Rate: 100 Active 2012 Medical IV 1,000 mL ml/hr, Infuse Center over: 10 hr, Route: IV, kg, Total Volume: 1,000, Start date: 10/24/12 12:24:00, Duration: 30 day, Stop date: 11/23/12 12:23:00 lisinopril 40 mg, 2 tab, PO No Longer [facility] Route: PO, Active 2012 Medical Drug form: Center TAB, Daily, Dosing Weight 78.2, kg, Start date: 10/24/12 12:16:00, Stop date: 11/23/12 9:00:00 potassium 20 mEq, 100 IVPB No Longer [facility] chloride mL, Route: Active 2012 Medical IVPB, Drug Center form: INJ, Q2H, Dosing Weight 78.2, kg, Total dose=60 mEq, Start date: 10/24/12 12:00:00, Duration: 3 doses or times, Stop date: 10/24/12 16:00:00, For K=3.0 - 3.4mEq/L
For K=3.0 - 3.4mEq/L Lactated 1,000 mL, IV No Longer [facility] Rate: 150 Active 2012 Medical Injection IV ml/hr, Infuse Center 1,000 mL over: 6.7 hr, Route: IV, kg, Total Volume: 1,000, Start date: 10/24/12 11:50:00, Duration: 30 day, Stop date: 11/23/12 11:49:00 lisinopril 20 mg, 1 tab, PO No Longer [facility] [facility] Route: PO, Active 2012 Medical Drug form: Center TAB, Daily, Dosing Weight 78.2, kg, Priority: STAT, Start date: 10/24/12 11:44:00, Duration: 30 day, Stop date: 11/23/12 9:00:00 Effient 10 mg, 1 tab, PO No Longer Tanikella [facility] Route: PO, Active 2012 Medical Drug form: Center TAB, Daily, Dosing Weight 78.2, kg, Start date: 10/24/12 11:00:00, Duration: 30 day, Stop date: 11/23/12 9:00:00 lisinopril 5 mg, 1 tab, PO No Longer Funez [facility] Route: PO, Active 2012 Medical Drug form: Center TAB, Daily, Dosing Weight 78.2, kg, Priority: NOW, Start date: 10/24/12 10:53:00, Duration: 30 day, Stop date: 11/23/12 9:00:00 potassium 40 mEq, 2 PO No Longer Funez Kamel [place] chloride tab, Route: Active 2012 Medical PO, Drug Center form: ERTAB, ONCE, Dosing Weight 78.2, kg, Priority: NOW, Start date: 10/24/12 10:50:00, Stop date: 10/24/12 10:50:00 magnesium 2 gm, 50 mL, IVPB No Longer Tanikella [place] sulfate Route: IVPB, Active 2012 Medical Drug form: [place] INJ, ONCE, Dosing Weight 78.2, kg, Total dose=2 gm, Priority: NOW, Start date: 10/24/12 10:50:00, Duration: 1 doses or times, Stop date: 10/24/12 10:50:00 aspirin 81 mg 81 mg, 1 tab, PO No Longer Tanikella Fei tablet, enteric Route: PO, Active 2012 Medical coated Drug form: [place] ECTAB, Daily, Dosing Weight 78.2, kg, Priority: NOW, Start date: 10/24/12 10:43:00, Duration: 30 day, Stop date: 11/23/12 9:00:00 metoprolol 12.5 mg, 1 PO No Longer Funez Kamnigel Fei tartrate ea, Route: Active 2012 Medical PO, Drug Center form: TAB, Q12H, Dosing Weight 78.2, kg, Priority: NOW, Start date: 10/24/12 10:42:00, Duration: 30 day, Stop date: 11/23/12 9:00:00 nitroglycerin 250 mL, Rate: IV No Longer Funezmati Jon [place] 50 mg as directed, Active 2012 Medical Route: IV, Center kg, Total Volume: 250, Start date: 10/24/12 10:00:00, Duration: 30 day, Stop date: 11/23/12 9:59:00 Zofran 8 mg, 4 mL, IV No Longer Steward Fei Route: IV, Active 2012 Medical Drug form: [place] INJ, Q8H, Dosing Weight 78.2, kg, PRN Nausea, Priority: NOW, Start date: 10/24/12 7:56:00, Stop date: 11/23/12 7:55:00 metoprolol 5 5 mg, Route: IV No Longer Orozco Fei mg/5 ml INJ IV, ONCE, Active 2012 Medical Dosing Weight Center 78.2, kg, Priority: NOW, Start date: 10/24/12 7:55:00, Stop date: 10/24/12 7:55:00 nitroglycerin 100 mg, 250 IV No Longer Orozco Fei 100 mg in 250 mL, Rate: Active 2012 Medical ml D5W Premix Infuse as Center (titrate) 100 directed, mg Dosing Weight 78.2, kg, Route: IV, Total Volume: 250 mL, Start date: 10/24/12 7:55:00, Duration: 30 day, Stop date: 11/23/12 8:54:00, Replace Every: 24 hr aspirin 200 mg, 1 [place] No Longer Orozco Fei supp, Route: Active 2012 [facility] [place], Drug Center form: SUPP, ONCE, Dosing Weight 78.2, kg, Priority: NOW, Start date: 10/24/12 7:54:00, Stop date: 10/24/12 7:54:00 metoprolol 5 5 mg, 5 mL, IV No Longer Brian Fei mg/5 ml INJ Route: IV, Active 2012 Medical Drug form: [place] INJ, ONCE, Dosing Weight 113.636, kg, Priority: STAT, Start date: 10/23/12 21:01:00, Stop date: 10/23/12 21:01:00 Zocor 40 mg, 1 tab, PO No Longer Brian Fei Route: PO, Active 2012 Medical Drug form: [place] TAB, Bedtime, Dosing Weight 113.636, kg, Start date: 10/23/12 21:00:00, Duration: 30 day, Stop date: 11/21/12 21:00:00 morphine 2 mg, 1 mL, IVP No Longer Brian Fei Sulfate Route: IVP, Active 2012 Medical Drug form: [place] INJ, ONCE, Dosing Weight 113.636, kg, Priority: STAT, Start date: 10/23/12 19:49:00, Stop date: 10/23/12 19:49:00 heparin 4,700 unit, IV No Longer [facility] 10/24[facility] [place] 4.7 mL, Active 2012 Medical Route: IV, Center Drug form: INJ, PRN, PRN Abnormal Lab Result, Start date: 10/23/12 19:40:00, Duration: 30 day, Stop date: 11/22/12 20:39:00 heparin 2,300 unit, IV No Longer Mosley Fei 2.3 mL, Active 2012 Medical Route: IV, Center Drug form: INJ, PRN, PRN Abnormal Lab Result, Start date: 10/23/12 19:37:00, Duration: 30 day, Stop date: 11/22/12 20:36:00 heparin 4,000 unit, 4 IV No Longer Mosley Fei mL, Route: Active 2012 Medical IV, Drug Center form: INJ, ONCE, Start date: 10/23/12 19:31:00, Stop date: 10/23/12 19:31:00 aspirin 325 mg, 1 PO No Longer Tanikella Fei tab, Route: Active 2012 Medical PO, Drug Center form: TAB, Daily, Dosing Weight 113.636, kg, Priority: NOW, Start date: 10/23/12 19:03:00, Duration: 30 day, Stop date: 11/22/12 9:00:00 Heparin - 25,000 unit, IV No Longer Tanikella Fei infusion (ACS 500 mL, Rate: Active 2012 Medical Protocol) Start at 12 Center heparin 25,000 units/kg/hr units in D5W (Max Initial 500 mL Premix dose 1,000 25,000 unit un, Dosing Weight 78.27, kg, Route: IV, Total Volume: 500 ml, Start date: 10/23/12 17:57:00, Duration: 30 day, Stop date: 11/22/12 17:56:00, Replace Every: 24 hr Visipaque 126 mL, IVP No Longer Carpenter Fei 320mg/ml Route: IVP, Active 2012 Medical Drug Form: Center SOLN, Dosing Weight 113.636, kg, ONCALL, STAT, Start date: 10/23/12 16:52:00, Duration: 1 doses or times, Dose=2.2ml/kg , Max [id number] -- "To be infused by Radiology Staff ONLY"
Dos e=2.2ml/kg, Max tlhi=770dg -- "To be infused by Radiology Staff ONLY" magnesium 2 gm, 50 mL, IVPB No Longer Isaac Fei sulfate Route: IVPB, Active 2012 Medical Drug form: [place] INJ, ONCE, Dosing Weight 113.636, kg, Start date: 10/23/12 16:10:00, Duration: 1 doses or times, Stop date: 10/23/12 16:10:00, For Mg=1.8 - 2 mg/dL
For Mg=1.8 - 2 mg/dL D5W 1/2NS 1,000 1,000 mL, IV No Longer Funez Jerseyel Fei mL Rate: 200 Active 2012 Medical ml/hr, Infuse Center over: 5 hr, Route: IV, kg, Total Volume: 1,000, Start date: 10/23/12 14:21:00, Stop date: 11/22/12 14:20:00 Omnipaque 130 mL, IVP No Longer Pauline Fei 350mg/ml Route: IVP, Active 2012 Medical Drug Form: [place] WHITN, Dosing Weight 113.636, kg, ONCALL, STAT, Start date: 10/23/12 10:42:00, Duration: 1 doses or times, Dose=2.2ml/kg , Max [id number] -- "To be infused by Radiology Staff ONLY"
Dos e=2.2ml/kg, Max mybp=753gb -- "To be infused by Radiology Staff ONLY" Insulin 100 mL, Rate: IV No Longer [place] Fei (regular) 0.1units/kg/h Active 2012 Medical Titrate IV our Titrate, Center additive 100 Dosing Weight unit + Sodium 113.636, kg, Chloride 0.9% Route: IV, (titrate) 100 Total Volume: mL 101, Duration: 30 day, Stop date: 11/22/12 10:16:00, Replace Every: 24 hr Dextrose 50% 25 gm, 50 ml, IVP No Longer Isaac Fei Syringe Route: IVP, Active 2012 Medical Drug Form: Center INJ, Dosing Weight 113.636, kg, PRN, PRN Blood Glucose Results, Start date: 10/23/12 10:16:00, Duration: 30 day, Stop date: 11/22/12 11:15:00 Sodium Chloride 1,000 mL, IV No Longer Isaac [place] 0.9% IV 1,000 Rate: 250 Active 2012 Medical mL ml/hr, Infuse Center over: 4 hr, Route: IV, kg, Total Volume: 1,000, Start date: 10/23/12 10:16:00, Stop date: 11/22/12 10:20:00 folic acid 1 mg Route: IV, IV No Longer Kristy [place] + Vitamin B1 Q24H, Start Active 2012 Medical 100 mg + M.V.I. date: Center Adult 10 mL + 10/23/12 potassium 9:00:00, chloride 20 mEq Duration: 3 + Dextrose 5% day, Stop date: 10/25/12 9:00:00 Sodium Chloride 1,000 mL, IV No Longer Isaac [place] 0.9% IV 1,000 Rate: 100 2012 Medical mL + M.V.I.-12 ml/hr, Infuse Center 10 mL Daily + over: 10.1 folic acid IV 1 hr, Route: mg Daily + IV, kg, Total thiamine IV 1 Volume: 1,011.2, Start date: 10/23/12 8:41:00, Duration: 3 day, Stop date: 10/26/12 8:40:00 Insulin regular 100 mL, Rate: IVPB No Longer Isaac [facility] 100 unit + Start Insulin Active 2012 Medical Sodium Chloride Drip Per ICU Center 0.9% (titrate) Protocol, 100 mL Dosing Weight 113.636, kg, Route: IVPB, Total Volume: 101, Duration: 30 day, Stop date: 11/22/12 8:17:00, Replace Every: 24 hr, Initial Insulin Drip Rate (units/hour)= (Fasting Blood Glucose-60)X0 .03 "...
Init ial Insulin Drip Rate (units/hour)= (Fasting Blood Glucose-60)X0 .03 "multiplier". Dextrose 50% 25 gm, 50 mL, IVP No Longer [facility] Syringe Route: IVP, Active 2012 Medical Drug Form: Center INJ, Dosing Weight 113.636, kg, PRN, PRN Blood Glucose Results, Start date: 10/23/12 8:17:00, Duration: 30 day, Stop date: 11/22/12 9:16:00 normal saline 1,000 mL, IV No Longer [facility] 0.9% IV 1,000 Rate: 150 Active 2012 Medical mL ml/hr, Infuse Center over: 6.7 hr, Route: IV, kg, Total Volume: 1,000, Start date: 10/23/12 5:07:00, Duration: 30 day, Stop date: 11/22/12 5:06:00 NS (Bolus) IV 1,000 mL, 0 IV No Longer Kristy [facility] ml/hr, Route: Active 2012 Medical IV, Drug Center Form: INJ, Dosing Weight 113.636, kg, ONCE, STAT, Start date: 10/23/12 5:06:00, Duration: 1 doses or times, Stop date: 10/23/12 5:06:00 hydrALAZINE 10 mg, 0.5 IV No Longer Funez Kamel [facility] mL, Route: Active 2012 Medical IV, Drug Center form: INJ, Q4H, Dosing Weight 113.636, kg, PRN Other -See Comment, Start date: 10/23/12 0:38:00, Duration: 30 day, Stop date: 11/22/12 0:37:00, hypertesnion acetaminophen 650 mg, 1 [place] No Longer Kristy [facility] supp, Route: Active 2012 Medical [place], Drug Center form: SUPP, Q6H, Dosing Weight 113.636, kg, PRN Fever, Start date: 10/23/12 0:37:00, Duration: 30 day, Stop date: 11/22/12 0:36:00 Dilaudid 0.5 mg, 0.25 IV No Longer [facility] mL, Route: Active 2012 Medical IV, Drug Center form: INJ, Q2H, Dosing Weight 113.636, kg, PRN Pain, Start date: 10/23/12 0:37:00, Duration: 30 day, Stop date: 11/22/12 0:36:00 metoprolol 5 5 mg, 5 mL, IVP No Longer Funez Kamel [facility] mg/5 ml INJ Route: IVP, Active 2012 Medical Drug form: [place] INJ, Q3H, Dosing Weight 113.636, kg, PRN Hypertension, Start date: 10/23/12 0:35:00, Duration: 30 day, Stop date: 11/22/12 0:34:00 Insulin regular 2 unit, 0.02 SUB-Q No Longer Isaac [facility] mL, Route: Active 2012 Medical SUB-Q, Drug Center form: SOLN, Sliding Scale, Dosing Weight 113.636, kg, PRN Blood Glucose Results, Start date: 10/23/12 0:26:00, Duration: 30 day, Stop date: 11/22/12 1:25:00 glucagon 1 mg, Route: IM No Longer [facility] IM, Drug Active 2012 Medical form: [place] PDR/INJ, PRN, Dosing Weight 113.636, kg, PRN Blood Glucose Results, Start date: 10/23/12 0:26:00, Duration: 30 day, Stop date: 11/22/12 1:25:00 Dextrose 50% 25 gm, 50 mL, IVP No Longer [facility] Syringe Route: IVP, Active 2012 Medical Drug Form: [place] INJ, Dosing Weight 113.636, kg, PRN, PRN Blood Glucose Results, Start date: 10/23/12 0:26:00, Duration: 30 day, Stop date: 11/22/12 1:25:00 Zofran ODT 8 mg, 1 tab, PO No Longer Steward [place] Route: PO, Active 2012 Medical Drug form: [place] TABDIS, Q8H, Dosing Weight 113.636, kg, PRN Nausea, Start date: 10/23/12 0:02:00, Stop date: 11/22/12 0:01:00 heparin 5,000 unit, SUB-Q No Longer Brian [place] Route: SUB-Q, Active 2012 Medical Q8H, Dosing Center Weight 113.636, kg, Start date: 10/23/12 0:00:00, Duration: 30 day, Stop date: 11/21/12 16:00:00 carvedilol 25 Daily, No Longer Fei mg oral tablet Substitution Active 2012 Medical Allowed Center Diovan HCT 160 1 tab, PO, PO No Longer Fei mg-12.5 mg oral Daily, 30 Active 2012 Medical tablet tab, Center Substitution Allowed, Maintenance, TAB D5W 1/2NS + KCL 1,000 mL, IV No Longer Isaac Fei 20mEq/L 1000ml Rate: 150 Active 2012 Medical (Premix) 1,000 ml/hr, Infuse Center mL over: 6.7 hr, Route: IV, kg, Total Volume: 1,000, Start date: 10/22/12 22:32:00, Duration: 30 day, Stop date: 11/21/12 22:31:00 Phenergan 25 mg, 1 mL, IVPB No Longer Steward Fei Route: IVPB, Active 2012 Medical Drug form: Center INJ, Q6H, PRN Nausea, Start date: 10/22/12 22:31:00, Stop date: 11/21/12 22:30:00 Lortab 500 15 ml, PO, PO Active Pauline Fei mg-7.5 mg/15 mL Q4H, PRN, 250 2012 Medical oral elixir mL, for pain, Center Substitution Allowed, Maintenance, ELIX Coreg 25 mg, 1 tab, PO No Longer Sushila Fei Route: PO, Active 2012 Medical Drug form: Center TAB, Q12H, Dosing Weight 118.2, kg, Start date: 10/07/12 21:00:00, Duration: 30 day, Stop date: 11/06/12 9:00:00 Cipro 500 mg, 10 [place] No Longer Pauline Fei mL, Route: Active 2012 Medical [place], Drug Center form: SUSP, Q12H, Dosing Weight 118.2, kg, Start date: 10/07/12 20:00:00, Duration: 7 day, Stop date: 10/14/12 8:00:00 Diovan 160 mg, 1 PO No Longer Sushila Fei tab, Route: Active 2012 Medical PO, Drug Center form: TAB, Daily, Dosing Weight 118.2, kg, Start date: 10/07/12 17:00:00, Duration: 30 day, Stop date: 11/06/12 9:00:00 ciprofloxacin 500 mg, 10 [place] No Longer Carpenter Fei mL, Route: Active 2012 Medical [place], Drug Center form: SUSP, Q12H, Dosing Weight 118.2, kg, Start date: 10/07/12 14:30:00, Duration: 7 day, Stop date: 10/14/12 9:00:00 [place] 325 mg-10 15 mL, Route: PO No Longer Sushila [facility] mg / 15 mL oral PO, Drug Active 2012 Medical solution Form: SOLN, [place] Dosing Weight 118.2, kg, Q4H, PRN For Pain, Start date: 10/07/12 14:22:00, Duration: 30 day, Stop date: 11/06/12 14:21:00 Diovan 160 mg, 1 PO No Longer Sushila [facility] tab, Route: Active 2012 Medical PO, Drug Center form: TAB, Daily, Dosing Weight 118.2, kg, Start date: 10/07/12 14:00:00, Duration: 30 day, Stop date: 11/06/12 9:00:00 Coreg 25 mg, 1 tab, PO No Longer Sushila [facility] Route: PO, Active 2012 Medical Drug form: Center TAB, Q12H, Dosing Weight 118.2, kg, Start date: 10/07/12 14:00:00, Duration: 30 day, Stop date: 11/06/12 9:00:00 potassium 20 mEq, 100 IVPB No Longer Bagshahi [facility] chloride mL, Route: Active 2012 Medical IVPB, Drug Center form: INJ, ONCE, Dosing Weight 118.2, kg, Total dose=20 mEq, Start date: 10/07/12 7:53:00, Duration: 1 doses or times, Stop date: 10/07/12 7:53:00, For K=3.5 - 3.9 mEq/L
For K=3.5 - 3.9 mEq/L Blistex 1 appl, TOP No Longer Dru [facility] Route: TOP, Active 2012 Medical PRN, Drug Center form: STIC PRN Other -See Comment, Start date: 10/06/12 22:48:00, Duration: 30 day, Stop date: 11/05/12 22:47:00 Blistex Lip Route: TOP, TOP No Longer Allenson Fei [place] Dosing Weight Active 2012 Medical 118.2, kg, Center PRN, PRN, Start date: 10/06/12 22:46:00, Duration: 30 day, Stop date: 11/05/12 22:45:00, prn Dilaudid 0.2 mg, 0.1 IV No Longer Sushila Fei mL, Route: Active 2012 [facility] IV, Drug Center form: INJ, Q4H, Dosing Weight 118.2, kg, PRN Pain, Start date: 10/06/12 14:47:00, Duration: 30 day, Stop date: 11/05/12 14:46:00 Zofran 4 mg, 2 mL, IV No Longer Low Fei Route: IV, Active 2012 Medical Drug form: [place] INJ, Q4H, Dosing Weight 118.2, kg, PRN Nausea, Start date: 10/06/12 14:47:00, Duration: 30 day, Stop date: 11/05/12 14:46:00 metoprolol 5 5 mg, 5 mL, IVP No Longer Sushila Fei mg/5 ml INJ Route: IVP, Active 2012 Medical Drug form: [place] INJ, Q6H, Dosing Weight 118.2, kg, Start date: 10/06/12 12:00:00, Duration: 30 day, Stop date: 11/05/12 6:00:00 magnesium 2 gm, 50 mL, IVPB No Longer Low Fei sulfate Route: IVPB, Active 2012 Medical Drug form: [place] INJ, Q2H, Dosing Weight 118.2, kg, Total dose=4 gm, Start date: 10/06/12 12:00:00, Duration: 2 doses or times, Stop date: 10/06/12 14:00:00 dexamethasone 4 mg, 1 mL, IV No Longer Sushila Fei Route: IV, Active 2012 Medical Drug form: [place] INJ, ONCE, Start date: 10/06/12 9:00:00, Stop date: 10/06/12 9:00:00 acetaminophen-h 30 mL, Route: PO No Longer Sushila [facility] ydrocodone 325 PO, Drug Active 2012 Medical mg-10 mg/15 mL Form: SOLN, [place] oral solution Q4H, PRN Pain, Start date: 10/06/12 7:33:00, Duration: 30 day, Stop date: 11/05/12 7:32:00 morphine 2 mg, 1 mL, IVP No Longer Low [facility] Sulfate Route: IVP, Active 2012 Medical Drug form: Center INJ, Q2H, Dosing Weight 118.2, kg, PRN Pain, Start date: 10/05/12 23:45:00, Duration: 30 day, Stop date: 11/04/12 23:44:00 Levemir FlexPen 20 unit, 0.2 SUB-Q No Longer Sushila [facility] mL, Route: Active 2012 Medical SUB-Q, Drug Center form: INJ, Q12H, Start date: 10/05/12 21:00:00, Duration: 30 day, Stop date: 11/04/12 9:00:00 carvedilol 25 mg, 1 tab, PO No Longer Sushila [facility] Route: PO, Active 2012 Medical Drug form: Center TAB, Q12H, Dosing Weight 118.2, kg, Start date: 10/04/12 21:00:00, Duration: 30 day, Stop date: 11/03/12 9:00:00 [place] 325 mg-10 30 mL, Route: PO No Longer Dru [facility] mg / 15 mL oral PO, Drug Active 2012 Medical solution Form: SOLN, [place] Dosing Weight 118.2, kg, Q4H, PRN Pain Score 6-10, Start date: 10/04/12 17:20:00, Duration: 30 day, Stop date: 11/03/12 17:19:00 Diovan 160 mg, 1 PO No Longer Sushila [facility] tab, Route: Active 2012 Medical PO, Drug Center form: TAB, Daily, Dosing Weight 118.2, kg, Start date: 10/04/12 14:00:00, Duration: 30 day, Stop date: 11/03/12 9:00:00 Trandate 10 mg, 2 mL, IVP No Longer Low [facility] Route: IVP, Active 2012 Medical Drug form: Center INJ, Q4H, PRN Elevated BP, Start date: 10/04/12 9:05:00, Duration: 30 day, Stop date: 11/03/12 9:04:00 hydrALAZINE 20 mg, 1 mL, IVP No Longer Low [facility] Route: IVP, Active 2012 Medical Drug form: Center INJ, Q4H, Dosing Weight 118.2, kg, PRN Elevated BP, Start date: 10/04/12 9:00:00, Duration: 30 day, Stop date: 11/03/12 8:59:00, sbp > 160 heparin 5,000 unit, 1 SUB-Q No Longer Sushila [facility] mL, Route: Active 2012 Medical SUB-Q, Drug Center form: INJ, Q8H, Start date: 10/04/12 8:00:00, Duration: 30 day, Stop date: 11/03/12 0:00:00 Lactated 1,000 mL, IV No Longer Carpenter [place] Ringers Rate: 125 Active 2012 Medical Injection IV ml/hr, Infuse Center 1,000 mL over: 8 hr, Route: IV, kg, Total Volume: 1,000, Start date: 10/04/12 7:38:00, Stop date: 11/03/12 7:37:00 Levemir 20 unit, 0.2 SUB-Q No Longer Low [facility] mL, Route: Active 2012 Medical SUB-Q, Drug Center form: INJ, Q12H, Dosing Weight 118.2, kg, Priority: NOW, Start date: 10/04/12 7:02:00, Duration: 30 day, Stop date: 11/02/12 21:00:00 hydrALAZINE 10 mg, 0.5 IVP No Longer Low [facility] mL, Route: Active 2012 Medical IVP, Drug Center form: INJ, ONCE, Dosing Weight 118.2, kg, Start date: 10/04/12 6:53:00, Stop date: 10/04/12 6:53:00 labetalol 10 mg, 2 mL, IVP No Longer Low [facility] Route: IVP, Active 2012 Medical Drug form: Center INJ, Q15Min, Dosing Weight 118.2, kg, PRN Hypertension, Start date: 10/04/12 5:11:00, Duration: 3 doses or times, Stop date: Limited # of times Insulin regular 12 unit, 0.12 SUB-Q No Longer [place] [facility] mL, Route: Active 2012 Medical SUB-Q, Drug Center form: SOLN, Sliding Scale, Dosing Weight 118.2, kg, PRN Blood Glucose Results, Start date: 10/04/12 0:40:00, Duration: 30 day, Stop date: 11/03/12 0:39:00 Dextrose 50% 25 gm, 50 mL, IVP No Longer [facility] Syringe Route: IVP, Active 2012 Medical Drug Form: Center INJ, Dosing Weight 118.2, kg, PRN, PRN Blood Glucose Results, Start date: 10/04/12 0:40:00, Duration: 30 day, Stop date: 11/03/12 0:39:00 glucagon 1 mg, Route: IM No Longer [facility] 10/[facility] IM, Drug Active 2012 Medical form: [place] PDR/INJ, PRN, Dosing Weight 118.2, kg, PRN Blood Glucose Results, Start date: 10/04/12 0:40:00, Duration: 30 day, Stop date: 11/03/12 0:39:00 Ofirmev 1,000 mg, 100 IV No Longer [facility] 10/04[facility] mL, Route: Active 2012 Medical IV, Drug Center form: INJ, Q6H, Start date: 10/03/12 18:00:00, Duration: 4 doses or times, Stop date: 10/04/12 12:00:00 Mefoxin 2 gm, Route: IVPB No Longer [facility] 10/03[facility] IVPB, Drug Active 2012 Medical form: INJ, Center [id number], Start date: 10/03/12 16:00:00, Duration: 2 doses or times, Stop date: 10/04/12 0:00:00 Lopressor 5 mg, 5 mL, IV No Longer Low [facility] Route: IV, Active 2012 Medical Drug form: Center INJ, Q6H, Start date: 10/03/12 16:00:00, Duration: 30 day, Stop date: 11/02/12 10:00:00 Humulin R 100 10 unit, 0.1 SUB-Q [facility] Longer [facility] units/mL mL, Route: Active 2012 Medical injectable SUB-Q, Drug Center solution form: SOLN, TID-Before Meals, PRN Blood Glucose Results, Start date: 10/03/12 14:30:00, Duration: 30 day, Stop date: 11/02/12 14:29:00 Dextrose 50% in 50 mL, Route: IV No Longer [place] [facility] Water IV IV, Start Active 2012 Medical date: [place] 10/03/12 14:29:00, Duration: 30 day, Stop date: 11/02/12 14:28:00, PRN Blood Glucose Results Dextrose 50% in 25 mL, Route: IVP No Longer [facility] Water IV IVP, Start Active 2012 Medical date: [place] 10/03/12 14:28:00, Duration: 30 day, Stop date: 11/02/12 14:27:00, PRN Blood Glucose Results Zofran 4 mg, 2 mL, IVP No Longer Low [facility] Route: IVP, Active 2012 Medical Drug form: Center INJ, Q8H, PRN Nausea, Start date: 10/03/12 14:22:00, Duration: 30 day, Stop date: 11/02/12 14:21:00 naloxone 0.2 mg, 0.5 IV No Longer Bagshahi [facility] mL, Route: Active 2012 [facility] IV, Drug Center form: INJ, PRN, PRN Narcotic Reversal, Start date: 10/03/12 14:21:00, Duration: 30 day, Stop date: 11/02/12 14:20:00 hydromorphone IV, Start IV No Longer Low [facility] 15 mg date: Active 2012 Medical 10/03/12 Center 14:19:00, Duration: 30, 30 ml, 118.2 Phenergan 12.5 mg, 0.5 IVPB No Longer Bagshahi [facility] mL, Route: Active 2012 Medical IVPB, Drug Center form: INJ, Q4H, PRN Nausea, Start date: 10/03/12 14:08:00, Duration: 30 day, Stop date: 11/02/12 14:07:00 Phenergan 12.5 mg, 0.5 IM No Longer Bagshahi [place] mL, Route: Active 2012 Medical IM, Drug Center form: INJ, Q4H, PRN Nausea, Start date: 10/03/12 14:07:00, Duration: 30 day, Stop date: 11/02/12 14:06:00 Benadryl 25 mg, 0.5 IM No Longer Sushila [facility] mL, Route: Active 2012 Medical IM, Drug Center form: INJ, Bedtime, PRN Insomnia, Start date: 10/03/12 14:04:00, Duration: 30 day, Stop date: 11/02/12 14:03:00 Lactated 1,000 mL, IV No Longer Low [place] Ringers Rate: 125 Active 2012 Medical Injection IV ml/hr, Infuse Center 1,000 mL over: 8 hr, Route: IV, kg, Total Volume: 1,000, Start date: 10/03/12 14:00:00, Duration: 30 day, Stop date: 11/02/12 13:59:00 ondansetron 4 mg, 2 mL, IVP No Longer Jose [facility] Route: IVP, Active 2012 Medical Drug form: Center INJ, ONCE, Dosing Weight 118.182, kg, PRN Nausea & Vomiting, Start date: 10/03/12 11:00:00 acetaminophen-o 1 tab, Route: PO No Longer Jose [facility] xycodone 325 PO, Drug Active 2012 Medical mg-5 mg oral Form: TAB, Center tablet Dosing Weight 118.182, kg, Q4H, PRN Pain Score 1-3, Start date: 10/03/12 11:00:00, Stop date: 10/04/12 0:00:00 hydromorphone 0.5 mg, 0.25 IVP No Longer Jose [facility] mL, Route: Active 2012 Medical IVP, Drug Center form: INJ, Q5Min, Dosing Weight 118.182, kg, PRN Pain Score 4-6, Start date: 10/03/12 11:00:00, Duration: 5 doses or times, Stop date: 10/04/12 0:00:00 Lactated 1,000 mL, IV No Longer Jose [place] Ringers Rate: 50 Active 2012 Medical Injection IV ml/hr, Infuse Center 1,000 mL over: 20 hr, Route: IV, kg, Total Volume: 1,000, Start date: 10/03/12 11:00:00, Duration: 30 day, Stop date: 11/02/12 10:59:00 heparin 5,000 unit, 1 SUB-Q No Longer Sushila [place] mL, Route: Active 2012 Medical SUB-Q, Drug Center form: INJ, PRE OP, Start date: 10/03/12 6:00:00, Duration: 1 day, Stop date: 10/04/12 5:59:00 scopolamine 1 patch, TOP No Longer Sushila [facility] Route: TOP, Active 2012 Medical Drug form: Center ERFILM, PRE OP, Start date: 10/03/12 6:00:00, Duration: 1 day, Stop date: 10/04/12 5:59:00 Mefoxin 2 gm, Route: IVPB No Longer Sushila [facility] IVPB, Drug Active 2012 Medical form: INJ, Center PRE OP, Priority: STAT, Start date: 10/03/12 5:50:00, Duration: 1 day, Stop date: 10/04/12 5:49:00 Mobic 15 mg 10 mg, PO, PO Active [place] oral tablet Daily, 2012 Medical tab, Center Substitution Allowed, TAB Zetia Daily, Active [facility] Substitution 2011 Medical Allowed Center Klor-Con 10 10 mEq, 1 PO Active [facility] oral tablet, tab, PO, 2011 Medical extended Daily, 180 Center release tab, Substitution Allowed, ERTAB ferrous 324 mg, 1 PO Active [facility] gluconate 324 tab, PO, 2011 Medical mg oral tablet Daily, 100 Center tab, Substitution Allowed, TAB Lasix 40 mg 40 mg, 1 tab, PO Active [facility] oral tablet PO, Daily, 2011 Medical tab, Center Substitution Allowed, TAB Cymbalta 60 mg 60 mg, 1 cap, PO Active [facility] oral delayed PO, BID, 2011 Medical release capsule cap, Center Substitution Allowed, ECCAP Crestor 20 mg 20 mg, 1 tab, PO Active [facility] [place] oral tablet PO, Daily, 30 2011 Medical tab, Center Substitution Allowed, TAB Flexeril 10 mg 10 mg, 1 tab, PO Active [place] oral tablet PO, TID, PRN, 2011 30 tab, for Center spasm, Substitution Allowed, TAB Lyrica 150 mg 150 mg, 1 PO Active [facility] oral capsule cap, PO, BID, 2011 cap, Center Substitution Allowed, CAP Klonopin 0.5 mg 0.5 mg, 1 PO Active [place] oral tablet tab, PO, TID, 2011 Medical Substitution Center Allowed, TAB Diovan 160 mg 160 mg, 1 PO Active [facility] oral tablet tab, PO, 2011 Medical Daily, 30 Center tab, Substitution Allowed, TAB carvedilol 25 25 mg, 1 tab, PO Active [place] mg oral tablet PO, BID, 60 2011 Medical tab, Center Substitution Allowed, TAB omeprazole 20 20 mg, 1 tab, PO Active [facility] mg oral enteric PO, Daily, 30 2011 Medical coated tablet tab, Center Substitution Allowed, ECTAB Abilify 10 mg 10 mg, 1 tab, PO Active [place] oral tablet PO, Daily, 30 2011 Medical tab, Center Substitution Allowed, TAB buPROPion 150 150 mg, 1 PO Active [facility] mg oral tablet, tab, PO, 2011 Medical extended Daily, 60 Center release tab, Substitution Allowed, ERTAB metFORmin 1000 1,000 mg, 1 PO Active [place] mg oral tablet tab, PO, BID, 2011 30 tab, Center Substitution Allowed NovoLog Substitution Active [facility] Allowed 2011 [facility] Levemir FlexPen Substitution Active [facility] Allowed 2011 [facility] Medication not <td Other [place] documented styleCode="xm Physicians ain"><span style="xdiv"> <span style="Bold&q uot; ID="[id number]">Medicatio n not documented</s john></span><s john style="x asIgnore">
</span><spa n style="xdiv"> <span style="x secondary"/>< /span></td><t d styleCode="xd ates"/><td styleCode="xd etails"><span style="xstatu s"><span style="xlabel "/><span style="xvalue "/></span></t d> Medications not <td Other [place] documented styleCode="xm [facility] ain"><span style="xdiv"> <span style="Bold&q uot; ID="[id number]" >Medications not documented</s john></span><s john style="x asIgnore">
</span><spa n style="xdiv"> <span style="x secondary"/>< /span></td><t d styleCode="xd ates"/><td styleCode="xd etails"><span style="xstatu s"><span style="xvalue "/><span style="xasIgn ore">
</s john></span></ td> Allergies, Adverse Reactions, Alerts Substance Category Reaction Severity Reaction Status Date Comments Source type Reported Allergy allergy to [facility] history not substance Physicians documented NKDA drug Allergy Active [facility] Immunizations Immunization Date Given Site Status Last Updated Comments Source influenza virus 07/14/2013 completed [facility] vaccine, Medical inactivated Center pneumococcal 07/14/2013 completed [facility] 23-valent vaccine Medical Center Results Order Name Results Value Reference Date Interpretation Comments Source Range [U] XRAY XR KNEE 1 02/01 [facility] KNEE 1 OR 2 OR 2 VWS /2017 Physicians VWS RIGHT RIGHT [id number] [U] XRAY HIP XR HIP 02/01 [facility] UNILATERAL UNILATERAL /2017 [facility] MIN 2 VWS MIN 2 VWS RIGHT [id number] RIGHT [U] XRAY HIP XR HIP 05/19 [facility] UNILATERAL UNILATERAL /2015 [facility] MIN 2 VWS MIN 2 VWS RIGHT [id number] RIGHT CHEMISTRY U Preg Negative Negative 08/13 Normal [facility] (08/13/2013 13:30:00) Center URINALYSIS UA RBC 0-2 /HPF 0 - 2 08/13 Normal [facility] URINALYSIS UA WBC 3-5 /HPF None Seen 08/13 Normal [facility] URINALYSIS UA Sq Epi Few /LPF Few 08/13 Normal [facility] URINALYSIS Micro? Performed 08/13 Normal [facility] (08/13/2013 13:30:00) [place] URINALYSIS UA Hyal Cast 0-2 0 - 2 08/13 Normal [facility] (08/13/2013 13:30:00) [place] URINALYSIS UA Glucose 250 mg/dL Negative 08/13 ABN [facility] URINALYSIS UA Blood Negative Negative 08/13 Normal [facility] (08/13/2013 13:30:00) [place] URINALYSIS UA Ketones >=80 mg/dL Negative 08/13 [facility] URINALYSIS UA 0.2 EU/dL 0.1 - 1.0 08/13 Normal [facility] Urobilinogen /2012 [facility] URINALYSIS UA Nitrite Negative Negative 08/13 Normal [facility] (08/13/2013 13:30:00) [place] URINALYSIS UA Bili Small 1 Negative 08/13 [facility] 1Result Comment: Interpret positive bilirubin results with caution. Confirmatory testing not possible due to the unavailability of reagent. Correlation with Medical *ABN* serum chemistry results recommended. [place] (08/13/2013 13:30:00) URINALYSIS UA Leuk Est Negative Negative 08/13 Normal [facility] (08/13/2013 13:30:00) [place] URINALYSIS UA Protein Negative Negative 08/13 Normal [facility] (08/13/2013 13:30:00) [place] URINALYSIS UA pH 6.0 5.0 - 8.0 08/13 Normal [facility] URINALYSIS UA Spec Grav 1.020 <=1.030 08/13 Normal [facility] URINALYSIS UA Color Yellow Yellow 08/13 [facility] *NA* [place] (08/13/2013 13:30:00) URINALYSIS UA Turbidity Clear Clear 08/13 Normal [facility] (08/13/2013 13:30:00) Center CHEMISTRY BE Mark 1 mMol/L -2-2 - 2 08/13 Normal [facility] CHEMISTRY pO2 Mark 29 mm[Hg] 20 - 49 08/13 Normal [facility] CHEMISTRY O2 Sat Mark 55.9 % 40.0 - 08/13 Normal [facility] 70.0 [facility] CHEMISTRY Temp Mark 37.0 Abby 08/13 [facility] CHEMISTRY HCO3 Mark 26 mMol/L 22 - 26 08/13 Normal [facility] CHEMISTRY pCO2 Mark 41 mm[Hg] 38 - 52 08/13 Normal [facility] CHEMISTRY pH Mark 7.41 7.28 - 12 Normal [facility] 7.42 [facility] CHEMISTRY eGFR 60 08/13 2Result Comment: The eGFR is calculated using the CKD-EPI formula. In most young, healthy individuals the eGFR will be >90 mL/ min/1.73m2. The eGFR declines with age. An eGFR of 60-89 may be normal in [facility] mL/min/1.7 some populations, particularly the elderly, for whom the CKD-EPI formula has not been extensively validated. Use of the eGFR is not recommended in the following populations: [place] [address] Center Individuals with unstable creatinine concentrations, including patients and those with serious co-morbid conditions. Patients with extremes in muscle mass or diet. The data above are obtained from the National Kidney Disease Education Program (NKDEP) which additionally recommends that when the eGFR is used in patients with extremes of body mass index for purposes of drug dosing, the eGFR should be multiplied by the estimated BMI. CHEMISTRY CO2 25 meq/L 24 - 32 08/13 Normal [facility] CHEMISTRY Chloride Lvl 98 meq/L 95 - 109 08/13 Normal [facility] CHEMISTRY BUN 9 mg/dL 7 - 22 08/13 Normal [facility] CHEMISTRY Calcium Lvl 9.1 mg/dL 8.5 - 10.5 08/13 Normal [facility] CHEMISTRY Glucose Lvl 301 mg/dL 70 - 99 08/13 [place] 3Interpretive Data: Adult reference range values reflect the clinical guidelines of the [place] [employer]. [facility] CHEMISTRY Potassium 3.8 meq/L 3.5 - 5.1 08/13 Normal [facility] /2012 [facility] CHEMISTRY Sodium Lvl 134 meq/L 135 - 145 08/13 LOW [facility] CHEMISTRY Creatinine 1.1 mg/dL 0.5 - 1.4 08/13 Normal [facility] /2012 [facility] CHEMISTRY Bili Total 0.6 mg/dL 0.2 - 1.3 08/13 Normal [facility] CHEMISTRY ASPARTATE 17 unit/L 0 - 37 08/13 Normal [facility] TRANSAMINASE [facility] CHEMISTRY ALANINE 22 unit/L 0 - 65 08/13 Normal [facility] AMINOTRANSFE [facility] RASE [place] CHEMISTRY Albumin Lvl 3.5 g/dL 3.5 - 5.0 08/13 Normal [facility] CHEMISTRY Alk Phos 130 unit/L 39 - 136 08/13 Normal [facility] CHEMISTRY Total 7.8 g/dL 6.4 - 8.4 08/13 Normal [facility] Protein [facility] CHEMISTRY B/C Ratio 8 6 - 25 08/13 Normal [facility] CHEMISTRY AGAP 14.8 meq/L 10.0 - 08/13 Normal [facility] 20.0 [facility] CHEMISTRY Globulin 4.3 g/dL 2.0 - 4.0 08/13 [facility] CHEMISTRY A/G Ratio 0.8 0.7 - 1.6 08/13 Normal [facility] HEMATOLOGY Monocytes # 0.8 K/CMM 0.0 - 0.8 08/13 Normal [facility] HEMATOLOGY Eosinophils 0.0 K/CMM 0.0 - 0.5 08/13 Normal [facility] # [facility] HEMATOLOGY Basophils # 0.0 K/CMM 0.0 - 0.2 08/13 Normal [facility] HEMATOLOGY Basophils 0.1 % 0.0 - 1.0 08/13 Normal [facility] HEMATOLOGY Lymphocytes 1.4 K/CMM 1.0 - 5.5 08/13 Normal [facility] # [facility] HEMATOLOGY Segs-Bands # 10.5 K/CMM 1.5 - 8.1 08/13 [facility] HEMATOLOGY Monocytes 6.3 % 2.0 - 12.0 08/13 Normal [facility] HEMATOLOGY Eosinophils 0.2 % 0.0 - 4.0 08/13 Normal [facility] HEMATOLOGY Lymphocytes 11.3 % 20.0 - 12/08 LOW [place] 40.0 /2012 [facility] HEMATOLOGY Segs 82.1 % 45.0 - 1208 HI [place] 75.0 /2012 [facility] HEMATOLOGY WBC X 10x3 12.7 K/CMM 3.7 - 10.4 12 HI /2012 [facility] Center HEMATOLOGY Hct 37.0 % 36.0 - 12 Normal [place] 48.0 /2012 Medical Center HEMATOLOGY RBC X 10x6 4.36 M/CMM 4.20 - 12 Normal [place] 5.40 /2012 Medical Center HEMATOLOGY Hgb 12.6 g/dL 12.0 - 12 Normal [place] 16.0 /2012 Medical Center HEMATOLOGY MCV 84.8 fL 81.0 - 12 Normal [place] 99.0 /2012 Medical Center HEMATOLOGY MCH 28.8 pg 27.0 - 08/13 Normal [place] 31.0 /2012 Medical Center HEMATOLOGY MCHC 34.0 g/dL 32.0 - 12 Normal [facility] 36.0 /2012 Medical Center HEMATOLOGY Platelet 238 K/CMM 133 - 450 08/13 Normal [facility] HEMATOLOGY MPV 9.5 fL 7.4 - 10.4 08/13 Normal [facility] HEMATOLOGY RDW 13.1 % 11.5 - 08/13 Normal [facility] 14.5 /2012 Medical Center BEDSIDE Gluc POC Notify 07/26 [facility] GLUCOSE Comment 1 RN/ /2012 Medical TESTING Center BEDSIDE Glucose POC 274 mg/dL 70 - 99 07/26 [place] 1Interpretive [facility] GLUCOSE Data: Medical TESTING Center Upper Reportable Limit: 200 mg/dL. BEDSIDE Glucose POC 146 mg/dL 70 - 99 07/15 [place] 2Interpretive [facility] GLUCOSE Data: Medical TESTING Center Upper Reportable Limit: 200 mg/dL. BEDSIDE Gluc POC Notify 07/15 [facility] GLUCOSE Comment 1 RN/ /2012 Medical TESTING Center BEDSIDE Glucose POC 140 mg/dL 70 - 99 07/14 HI 3Interpretive [facility] GLUCOSE Data: Medical TESTING Center Upper Reportable Limit: 200 mg/dL. BEDSIDE Gluc POC Notify 07/14 [facility] GLUCOSE Comment 1 RN/ /2012 Medical TESTING Center BEDSIDE Gluc POC Notify 07/14 [facility] GLUCOSE Comment 1 RN/ /2013 Medical TESTING Center BEDSIDE Glucose POC 44 mg/dL 70 - 99 07/14 LOW 4Interpretive [facility] GLUCOSE Data: Medical TESTING Center Upper Reportable Limit: 200 mg/dL. IMMUNOLOGY [place]-HIV Negative Negative 07/14 [facility] 1/2 [facility]* [place] (07/14/2013 00:27:00) IMMUNOLOGY [place]-Hep C Negative Negative 07/14 [facility] (07/14/2013 00:27:00) CHEMISTRY eGFR 109 07/13 5Result Comment: The eGFR is calculated using the CKD-EPI formula. In most young, healthy individuals the eGFR will be >90 mL/ min/1.73m2. The eGFR declines with age. An eGFR of 60-89 may be normal in [facility] mL/min/1.7 some populations, particularly the elderly, for whom the CKD-EPI formula has not been extensively validated. Use of the eGFR is not recommended in the following populations: [address] Individuals with unstable creatinine concentrations, including patients and those with serious co-morbid conditions. Patients with extremes in muscle mass or diet. The data above are obtained from the National Kidney Disease Education Program (NKDEP) which additionally recommends that when the eGFR is used in patients with extremes of body mass index for purposes of drug dosing, the eGFR should be multiplied by the estimated BMI. CHEMISTRY Sodium Lvl 135 meq/L 135 - 145 07/13 Normal [facility] CHEMISTRY Chloride Lvl 95 meq/L 95 - 109 07/13 Normal [facility] CHEMISTRY AGAP 16.5 meq/L 10.0 - 07/13 Normal [facility] 20.0 [facility] CHEMISTRY Glucose Lvl 322 mg/dL 70 - 99 07/13 [place] 8Interpretive Data: Adult reference range values reflect the clinical guidelines of the [place] [employer]. [facility] CHEMISTRY Creatinine 0.6 mg/dL 0.5 - 1.4 07/13 Normal [facility] CHEMISTRY BUN 6 mg/dL 7 - 22 07/13 LOW [facility] CHEMISTRY Calcium Lvl 8.6 mg/dL 8.5 - 10.5 07/13 Normal [facility] CHEMISTRY CO2 27 meq/L 24 - 32 07/13 Normal [facility] CHEMISTRY Potassium 3.5 meq/L 3.5 - 5.1 07/13 Normal [facility] INFECTIOUS C difficile Negative 1 Negative 07/13 Normal 1Interpretive Data: [employer] Clostridium difficile assay utilizes loop-mediated isothermal DNA amplification (LAMP) technology to detect a 204 bp region of the tcdA gene within the PaLoc gene [facility] segment present in all known toxigenic C. difficile strains. [facility] (07/13/2013 00:00:59) [place] The assay utilizes FDA cleared IVD reagents. Performance characteristics have been verified by the [facility] within the [facility]. The [facility] Laboratory is authorized under the Clinical Laboratory Improvement Amendment of 1988 (CLIA-88) to perform high complexity testing. CHEMISTRY Lactic Acid 1.9 mMol/L 0.5 - 2.2 07/12 Normal [facility] Lvl [facility] CHEMISTRY eGFR 88 07/12 6Result Comment: The eGFR is calculated using the CKD-EPI formula. In most young, healthy individuals the eGFR will be >90 mL/ min/1.73m2. The eGFR declines with age. An eGFR of 60-89 may be normal in [facility] mL/min/1. some populations, particularly the elderly, for whom the CKD-EPI formula has not been extensively validated. Use of the eGFR is not recommended in the following populations: [address] Individuals with unstable creatinine concentrations, including patients and those with serious co-morbid conditions. Patients with extremes in muscle mass or diet. The data above are obtained from the National Kidney Disease Education Program (NKDEP) which additionally recommends that when the eGFR is used in patients with extremes of body mass index for purposes of drug dosing, the eGFR should be multiplied by the estimated BMI. CHEMISTRY Troponin-I null 0.00 - 07/12 Normal [facility] 0.40 [facility] HEMATOLOGY Basophils # 0.0 K/CMM 0.0 - 0.2 07/12 Normal [facility] HEMATOLOGY Eosinophils 0.3 K/CMM 0.0 - 0.5 07/12 Normal [facility] /2012 [facility] HEMATOLOGY Monocytes # 1.0 K/CMM 0.0 - 0.8 07/12 HI [facility]2012 [facility] HEMATOLOGY Lymphocytes 3.0 K/CMM 1.0 - 5.5 07/12 Normal [facility] /2012 [facility] HEMATOLOGY Segs-Bands # 6.4 K/CMM 1.5 - 8.1 07/[address] HEMATOLOGY Basophils 0.4 % 0.0 - 1.0 07/[address] HEMATOLOGY Eosinophils 2.8 % 0.0 - 4.0 11 Normal [facility] HEMATOLOGY Plt Morph Normal 07/12 Normal [facility] (07/12/2013 16:29:10) Center HEMATOLOGY RBC Morph Normal 07/12 Normal [facility] (07/12/2013 16:29:10) Center HEMATOLOGY Monocytes 9.4 % 2.0 - 12.0 07/12 Normal [facility] HEMATOLOGY Lymphocytes 27.9 % 20.0 - 11 Normal [facility] 40.0 /2012 [facility] HEMATOLOGY Segs 59.5 % 45.0 - 11 Normal [facility] 75.0 /2012 [facility] HEMATOLOGY MCV 85.3 fL 81.0 - 07/12 Normal [facility] 99.0 /2012 [facility] HEMATOLOGY Hct 41.2 % 36.0 - 11 Normal [facility] 48.0 [facility] HEMATOLOGY Hgb 13.6 g/dL 12.0 - 07/12 Normal [facility] 16.0 [facility] HEMATOLOGY RBC X 10x6 4.84 M/CMM 4.20 - 07/12 Normal [facility] 5.40 /2012 [facility] HEMATOLOGY MPV 9.4 fL 7.4 - 10.4 07/12 Normal [facility] HEMATOLOGY Platelet 225 K/CMM 133 - 450 11 Normal [facility] HEMATOLOGY MCH 28.1 pg 27.0 - 07/12 Normal [facility] 31.0 [facility] HEMATOLOGY MCHC 33.0 g/dL 32.0 - 07/12 Normal [facility] 36.0 [facility] HEMATOLOGY RDW 12.7 % 11.5 - 07/12 Normal [facility] 14.5 [facility] HEMATOLOGY WBC X 10x3 10.7 K/CMM 3.7 - 10.4 07/12 HI [facility] CHEMISTRY AGAP 12.4 meq/L 10.0 - 11 Normal [facility] 20.0 [facility] CHEMISTRY Calcium Lvl 8.8 mg/dL 8.5 - 10.5 07/12 Normal [facility] CHEMISTRY Chloride Lvl 102 meq/L 95 - 109 07/12 Normal [facility] CHEMISTRY Potassium 3.4 meq/L 3.5 - 5.1 07/12 LOW [facility] Lvl [facility] CHEMISTRY CO2 30 meq/L 24 - 32 07/12 Normal [facility] CHEMISTRY Sodium Lvl 141 meq/L 135 - 145 07/12 Normal [facility] CHEMISTRY Creatinine 0.8 mg/dL 0.5 - 1.4 07/12 Normal [facility] CHEMISTRY BUN 6 mg/dL 7 - 22 07/12 LOW [facility] CHEMISTRY Glucose Lvl 163 mg/dL 70 - 99 07/12 HI 9Interpretive Data: Adult reference range values reflect the clinical guidelines of the [place] [employer]. Medical Center IMMUNOLOGY CDC-HIV 1/2 Negative Negative 07/12 [facility] Medical *NA* Center (07/12/2013 16:02:06) CHEMISTRY Calcium Lvl 8.4 mg/dL 8.5 - 10.5 07/12 LOW [facility] CHEMISTRY AGAP 10.4 meq/L 10.0 - 07/12 Normal [facility] 20.0 [facility] CHEMISTRY eGFR 76 07/12 7Result Comment: The eGFR is calculated using the CKD-EPI formula. In most young, healthy individuals the eGFR will be >90 mL/ min/1.73m2. The eGFR declines with age. An eGFR of 60-89 may be normal in [facility] mL/min/1.7 some populations, particularly the elderly, for whom the CKD-EPI formula has not been extensively validated. Use of the eGFR is not recommended in the following populations: [address] Individuals with unstable creatinine concentrations, including patients and those with serious co-morbid conditions. Patients with extremes in muscle mass or diet. The data above are obtained from the National Kidney Disease Education Program (NKDEP) which additionally recommends that when the eGFR is used in patients with extremes of body mass index for purposes of drug dosing, the eGFR should be multiplied by the estimated BMI. CHEMISTRY Sodium Lvl 140 meq/L 135 - 145 07/12 Normal [facility] CHEMISTRY Chloride Lvl 103 meq/L 95 - 109 07/12 Normal [facility] CHEMISTRY Potassium 3.4 meq/L 3.5 - 5.1 07/12 LOW [facility] CHEMISTRY BUN 9 mg/dL 7 - 22 07/12 Normal [facility] CHEMISTRY Creatinine 0.9 mg/dL 0.5 - 1.4 07/12 Normal [facility] CHEMISTRY Glucose Lvl 296 mg/dL 70 - 99 07/12 HI 10Interpretive Data: Adult reference range values reflect the clinical guidelines of the [place] [employer]. [facility] CHEMISTRY CO2 30 meq/L 24 - 32 07/12 Normal [facility] CHEMISTRY Troponin-I null 0.00 - 07/12 Normal [facility] 0.40 [facility] CHEMISTRY Lipase Lvl 76 unit/L 73 - 393 07/12 Normal [facility] CHEMISTRY B/C Ratio 11 6 - 25 07/12 Normal [facility] CHEMISTRY ASPARTATE 25 unit/L 0 - 37 07/12 Normal [facility] TRANSAMINASE [facility] CHEMISTRY Bili Total 0.4 mg/dL 0.2 - 1.3 07/12 Normal [facility] CHEMISTRY Alk Phos 119 unit/L 39 - 136 07/12 Normal [facility] CHEMISTRY Albumin Lvl 3.9 g/dL 3.5 - 5.0 07/12 Normal [facility] CHEMISTRY ALANINE 29 unit/L 0 - 65 07/12 Normal [facility] AMINOTRANSFE [facility] RASE [place] CHEMISTRY Total 8.1 g/dL 6.4 - 8.4 07/12 Normal [facility] Protein [facility] CHEMISTRY Globulin 4.2 g/dL 2.0 - 4.0 07/12 [facility] CHEMISTRY A/G Ratio 0.9 0.7 - 1.6 07/12 Normal [facility] HEMATOLOGY Monocytes # 0.6 K/CMM 0.0 - 0.8 07/12 Normal [facility] HEMATOLOGY Segs-Bands # 9.5 K/CMM 1.5 - 8.1 07/12 [facility] HEMATOLOGY Eosinophils 0.2 K/CMM 0.0 - 0.5 07/12 Normal [facility] HEMATOLOGY Lymphocytes 2.1 K/CMM 1.0 - 5.5 07/12 Normal [facility] HEMATOLOGY Basophils 0.2 % 0.0 - 1.0 07/12 Normal [facility] HEMATOLOGY Neut Vac Slight None Seen 07/12 ABN Medical *ABN* Center (07/12/2013 03:30:00) HEMATOLOGY Hypochrom Slight None Seen 07/12 Normal [facility] (07/12/2013 03:30:00) Center HEMATOLOGY Basophils # 0.0 K/CMM 0.0 - 0.2 07/12 Normal [facility] HEMATOLOGY RBC Morph Normal 07/12 Normal Medical (07/12/2013 03:30:00) Center HEMATOLOGY Eosinophils 1.6 % 0.0 - 4.0 07/12 Normal [facility] HEMATOLOGY Monocytes 4.6 % 2.0 - 12.0 07/12 Normal [facility] HEMATOLOGY Segs 76.6 % 45.0 - 07/12 HI [facility] 75.0 [facility] HEMATOLOGY Lymphocytes 17.0 % 20.0 - 07/12 LOW [facility] 40.0 [facility] HEMATOLOGY Plt Morph Normal 07/12 Normal [facility] (07/12/2013 03:30:00) [place] HEMATOLOGY MCHC 32.4 g/dL 32.0 - 07/12 Normal [facility] 36.0 [facility] HEMATOLOGY MCH 27.4 pg 27.0 - 07/12 Normal [facility] 31.0 [facility] HEMATOLOGY RDW 12.7 % 11. - 07/12 Normal [facility] 14.5 [facility] HEMATOLOGY Platelet 235 K/CMM 133 - 450 07/12 Normal [facility] HEMATOLOGY MPV 9.4 fL 7.4 - 10.4 07/12 Normal [facility] HEMATOLOGY Hgb 12.9 g/dL 12.0 - 07/12 Normal [facility] 16.0 [facility] HEMATOLOGY MCV 84.3 fL 81.0 - 07/12 Normal [facility] 99.0 [facility] HEMATOLOGY Hct 39.6 % 36.0 - 07/12 Normal [facility] 48.0 [facility] HEMATOLOGY WBC X 10x3 12.4 K/CMM 3.7 - 10.4 07/12 HI [facility] HEMATOLOGY RBC X 10x6 4.70 M/CMM 4.20 - 07/12 Normal [facility] 5.40 [facility] CHEMISTRY U Preg Negative Negative 07/12 Normal [facility] (07/12/2013 03:00:00) Center URINALYSIS UA Leuk Est Negative Negative 07/12 Normal Medical (07/12/2013 03:00:00) Center URINALYSIS UA 0.2 EU/dL 0.1 - 1.0 07/12 Normal [facility] Urobilinogen /2012 [facility] URINALYSIS UA Nitrite Negative Negative 07/12 Normal [facility] (07/12/2013 03:00:00) [place] URINALYSIS UA Bili Negative Negative 07/12 [facility] *NA* [place] (07/12/2013 03:00:00) URINALYSIS UA pH 6.0 5.0 - 8.0 07/12 Normal [facility]2012 [facility] URINALYSIS UA Protein Negative Negative 07/12 Normal [facility] mg/dL [facility] URINALYSIS UA Glucose >=1000 Negative 07/12 [facility] mg/dL [facility] URINALYSIS UA Ketones 15 mg/dL Negative 07/12 [facility]2012 [facility] URINALYSIS UA Spec Grav 1.020 <=1.030 07/12 Normal [facility] URINALYSIS UA Blood Negative Negative 07/12 Normal [facility] (07/12/2013 03:00:00) [place] URINALYSIS UA Color Yellow Yellow 07/12 [facility] *NA* [place] (07/12/2013 03:00:00) URINALYSIS UA Turbidity Clear Clear 07/12 Normal [facility] (07/12/2013 03:00:00) [place] URINALYSIS UA RBC 0-2 /HPF 0 - 2 07/12 Normal [facility] URINALYSIS UA WBC 3-5 /HPF None Seen 07/12 Normal [facility] URINALYSIS UA Sq Epi Many /LPF Few 07/12 [facility] URINALYSIS UA Bacteria Few /HPF None Seen 07/12 Normal [facility] URINALYSIS UA [place] Ye[facility] Moderate None Seen 07/12 [facility] URINALYSIS Micro? Performed 07/12 Normal [facility] (07/12/2013 03:00:00) [place] Abdomen/Pe Abdomen/Pelv EXAM: CT ABDOMEN WITH CONTRAST 07/12 - [facility] lvis w is w - Medical contrast contrast CT EXAM: CT PELVIS WITH CONTRAST This report was dictated by a Rehabilitation Tech/Fellow. I have personally reviewed the images as Center CT well as the Resident's interpretation and agree with the findings. Read by: Kindra Webb Resident: Kindra Webb Dictated Date/time: 07/12/13 08:11 DATE: 07/12/2013 at 0720 hours Electronically Signed by: Katelyn Tovar MD 07/12/13 15:51 FINAL REPORT COMPARISON: CT abdomen and pelvis 11/13/2012 and 10/23/2012 INDICATION: Acute abdominal pain PATIENT HISTORY: 47-year-old female with TECHNIQUE: Multiple contiguous helical images were obtained from the lung bases to the ischial tuberosities following the administration of intravenous and enteric contrast. Delayed imaging was then per formed through the abdomen and pelvis. Sagittal and coronally reformatted images have also been provided. DISCUSSION: CHEST: Lungs: Plate like opacity in the lingula is compatible with subsegmental atelectasis. Lung bases are otherwise clear. Pleura: No pleural effusion or pneumothorax. Heart/Vascular: The heart is normal in size without pericardial effusion. ABDOMEN/PELVIS: Hepatobiliary: The liver is normal in size, shape and attenuation without focal hepatic lesions. The hepatic and portal veins appear patent. There is no intra or extrahepatic biliary ductal dilatation. The gallbladder is surgically absent without collection in the gallbladder fossa. Spleen: Normal. Pancreas: Normal. The pancreatic duct is normal in caliber. Adrenal glands: Unremarkable. Kidneys/bladder: The kidneys demonstrate normal parenchymal enhancement and symmetric contrast excretion. Bilateral cortical scarring is again noted. Small 6 mm hypodensities in the interpolar and inter marta of the right kidney are unchanged and too small to characterize. No focal enhancing renal lesions are present. There is no hydronephrosis, calculus or perinephric stranding. The bladder is normal, without bladder wall thickening. Gastrointestinal: Small hiatal hernia is again noted. 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 The bilioenteric limits normal i n caliber. There are no dilated small bowel loops and oral contrast is present in the distal small bowel loops. The common is normal in caliber, without wall thickening and is filled with fluid throughout its course. The appendix is normal. Abdominal cavity: No free air or free fluid is identified. No mesenteric or retroperitoneal abnormality is noted. Vascular: The abdominal aorta and IVC are of normal caliber. Mild atherosclerotic ossification of the abdominal aorta is again noted. There is normal enhancement of the portal, splenic and mesenteric veins. Lymph nodes: No pathologically enlarged abdominal, retroperitoneal or pelvic lymph nodes are detected. Reproductive organs: Normal. Left ovarian calcification is unchanged. No adnexal masses are seen. Soft tissues: The abdominal body wall and musculature are normal. Bones: No bony abnormality identified aside from mild degenerative changes. IMPRESSION: 1. No acute intra-abdominal abnormality. Appendix is normal. 2. 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 3. Fluid in the colon can be correlated for symptoms of diarrhea. BEDSIDE Gluc POC 226 mg/dL 70 - 99 04/03 HI 1Interpretive [facility] GLUCOSE Lifscn Data: [facility] TESTING [facility] Upper Reportable Limit: 200 mg/dL. BEDSIDE Comment2 Sliding 04/03 [facility] [place] GLUCOSE Scale /2012 [facility] TESTING Center BEDSIDE Comment1 Notify 04/03 [facility] GLUCOSE RN/MD [facility] TESTING [place] BEDSIDE Comment1 Notify 04/03 [facility] [place] GLUCOSE RN/ /2012 [facility] TESTING Center BEDSIDE Gluc POC 198 mg/dL 70 - 99 04/03 ND 2Interpretive [facility] GLUCOSE Lifscn Data: [facility] Upper Reportable Limit: 200 mg/dL. BEDSIDE Comment2 Sliding 04/03 [facility] [place] GLUCOSE Scale [facility] TESTING [place] Abdomen 2 Abdomen 2 EXAM: XR ABDOMEN 1 VIEW 04/03 - [facility] views views - [facility] DATE: March 25. Read by: Carissa Cho Dictated Date/time: 04/03/13 18:42 Electronically Signed by: Carissa Cho MD 04/03/13 18:44 FINAL REPORT INDICATION: Nausea. COMPARISON: November 16, 2012. TECHNIQUE: Two radiograph provided for interpretation. FINDINGS: Lower thorax is unremarkable where visualized. The bowel gas pattern is nonobstructive. Surgical sutures are noted in the left upper quadrant with surgical clips in the right upper quadrant. No suspicious calcifications found. No worrisome skeletal abnormalities. IMPRESSION: 1. No abdominal abnormalities. Interpreted by Carissa Cho MD. BEDSIDE Comment2 Sliding 04/03 [facility] [place] GLUCOSE Scale /2012 [facility] TESTING Center BEDSIDE Comment1 Notify 04/03 [facility] [place] GLUCOSE RN/ /2012 [facility] TESTING [place] BEDSIDE Gluc POC 182 mg/dL 70 - 99 04/03 HI 3Interpretive [facility] GLUCOSE Lifscn /2013 Data: Medical TESTING Center Upper Reportable Limit: 200 mg/dL. CHEMISTRY Troponin-T null 0.000 - 04/03 Normal [facility] 0.100 [facility] CHEMISTRY Troponin-I null 0.00 - 04/03 Normal [facility] 0.40 [facility] CHEMISTRY Total CK 41 unit/L 12 - 191 04/03 Normal [facility] CHEMISTRY Creatinine 0.6 mg/dL 0.5 - 1.4 04/03 Normal [facility] Lvl [facility] CHEMISTRY Sodium Lvl 137 meq/L 135 - 145 04/03 Normal [facility] CHEMISTRY CO2 25 meq/L 24 - 32 04/03 Normal [facility] CHEMISTRY Calcium Lvl 8.2 mg/dL 8.5 - 10.5 04/03 LOW [facility] CHEMISTRY AGAP 17.9 meq/L 10.0 - 04/03 Normal [facility] 20.0 [facility] CHEMISTRY Potassium 3.9 meq/L 3.5 - 5.1 04/03 Normal [facility] CHEMISTRY Chloride Lvl 98 meq/L 95 - 109 04/03 Normal [facility] CHEMISTRY Glucose Lvl 266 mg/dL 70 - 99 04/03 HI 6Interpretive Data: Adult reference range values reflect the clinical guidelines of the [employer] [employer]. [facility] CHEMISTRY BUN 3 mg/dL 7 - 04/03 LOW [facility] CHEMISTRY eGFR 109 04/03 NA 4Result Comment: The eGFR is calculated using the CKD-EPI formula. In most young, healthy individuals the eGFR will be > 90 mL/min/1.73m2. The eGFR declines with age. An eGFR of 60-89 may be normal in [facility] mL/min/1. some populations, particularly the elderly, for whom the CKD-EPI formula has not been extensively validated. Use of the eGFR is not recommended in the following populations: [place] [address] [facility] Individuals with unstable creatinine concentrations, including patients and those with serious co-morbid conditions. Patients with extremes in muscle mass or diet. The data above are obtained from the National Kidney Disease Education Program (NKDEP) which additionally recommends that when the eGFR is used in patients with extremes of body mass index for purposes of drug dosing, the eGFR should be multiplied by the estimated BMI. HEMATOLOGY Hgb 10.5 g/dL 12.0 - 04/03 LOW [place] 16.0 /2012 [facility] HEMATOLOGY RBC 4.22 M/CMM 4.20 - 04/03 Normal [place] 5.40 /2012 [facility] [place] HEMATOLOGY WBC 10.3 K/CMM 3.7 - 10.4 04/03 Normal /2012 [facility] HEMATOLOGY Hct 33.5 % 36.0 - 04/03 LOW [place] 48.0 /2012 [facility] HEMATOLOGY MPV 8.8 fL 7.4 - 10.4 04/03 Normal [facility] HEMATOLOGY Platelet 276 K/CMM 133 - 450 04/03 Normal [facility] HEMATOLOGY RDW 18.7 % 11.5 - 04/03 [facility] [place] 14.5 [facility] HEMATOLOGY MCHC 31.2 g/dL 32.0 - 04/03 [facility] [place] 36.0 [facility] HEMATOLOGY MCH 24.8 pg 27.0 - 04/03 [facility] [place] 31.0 [facility] HEMATOLOGY MCV 79.5 fL 81.0 - 04/03 [facility] [place] 99.0 /2012 [facility] HEMATOLOGY Segs 58.6 % 45.0 - 04/03 Normal [place] 75.0 /2012 [facility] HEMATOLOGY Lymphocytes 29.9 % 20.0 - 04/03 Normal [place] 40.0 [facility] HEMATOLOGY Basophils 1.3 % 0.0 - 1.0 04/03 [facility] HEMATOLOGY Lymphocytes 3.1 K/CMM 1.0 - 5.5 04/03 Normal [place] # /2012 [facility] HEMATOLOGY Segs-Bands # 6.0 K/CMM 1.5 - 8.1 04/03 Normal [facility] HEMATOLOGY Eosinophils 2.8 % 0.0 - 4.0 04/03 Normal [facility] HEMATOLOGY Eosinophils 0.3 K/CMM 0.0 - 0.5 04/03 Normal [place] # [facility] HEMATOLOGY Monocytes # 0.8 K/CMM 0.0 - 0.8 04/03 Normal [facility] HEMATOLOGY Basophils # 0.1 K/CMM 0.0 - 0.2 04/03 Normal [facility] HEMATOLOGY Monocytes 7.4 % 2.0 - 12.0 04/03 Normal [facility] CHEMISTRY Troponin-I null 0.00 - 04/03 Normal [facility] [place] 0.40 [facility] CHEMISTRY Total CK 51 unit/L 12 - 191 04/03 Normal [facility] CHEMISTRY Troponin-T null 0.000 - 04/03 Normal [facility] 0.100 [facility] CHEMISTRY Bili Direct 0.1 mg/dL 0.0 - 0.3 04/03 Normal [facility] CHEMISTRY Bili Total 0.4 mg/dL 0.2 - 1.3 04/03 Normal [facility] CHEMISTRY Bili 0.3 mg/dL 0.0 - 1.0 04/03 Normal [facility] Indirect [facility] CHEMISTRY ALT 22 unit/L 0 - 65 04/03 Normal [facility] CHEMISTRY AST 31 unit/L 0 - 37 04/03 Normal [facility] CHEMISTRY Lipase Lvl 54 unit/L 73 - 393 04/03 LOW [facility] CHEMISTRY Troponin-I null 0.00 - 04/02 Normal [facility] 0.40 [facility] CHEMISTRY Total CK 24 unit/L 12 - 191 04/02 Normal [facility] CHEMISTRY AGAP 17.5 meq/L 10.0 - 04/02 Normal [facility] 20.0 [facility] CHEMISTRY eGFR 88 04/02 NA 5Result Comment: The eGFR is calculated using the CKD-EPI formula. In most young, healthy individuals the eGFR will be > 90 mL/min/1.73m2. The eGFR declines with age. An eGFR of 60-89 may be normal in [facility] mL/min/1.7 some populations, particularly the elderly, for whom the CKD-EPI formula has not been extensively validated. Use of the eGFR is not recommended in the following populations: [address] Individuals with unstable creatinine concentrations, including patients and those with serious co-morbid conditions. Patients with extremes in muscle mass or diet. The data above are obtained from the National Kidney Disease Education Program (NKDEP) which additionally recommends that when the eGFR is used in patients with extremes of body mass index for purposes of drug dosing, the eGFR should be multiplied by the estimated BMI. CHEMISTRY Creatinine 0.8 mg/dL 0.5 - 1.4 04/02 Normal [facility] CHEMISTRY Potassium 3.5 meq/L 3.5 - 5.1 04/02 Normal [facility] l [facility] CHEMISTRY Chloride Lvl 97 meq/L 95 - 109 04/02 Normal [facility] CHEMISTRY Glucose Lvl 163 mg/dL 70 - 99 04/02 HI 7Interpretive Data: Adult reference range values reflect the clinical guidelines of the [place] [employer]. [facility] CHEMISTRY BUN 2 mg/dL 7 - 04/02 LOW [facility] CHEMISTRY Sodium Lvl 136 meq/L 135 - 145 04/02 Normal [facility] CHEMISTRY Calcium Lvl 8.6 mg/dL 8.5 - 10.5 04/02 Normal [facility] CHEMISTRY CO2 25 meq/L 24 - 32 04/02 Normal [facility] HEMATOLOGY Platelet 378 K/CMM 133 - 450 04/02 Normal [facility] HEMATOLOGY MCHC 33.4 g/dL 32.0 - 04/02 Normal [facility] 36.0 [facility] HEMATOLOGY RDW 17.3 % 11.5 - 04/02 HI [facility] 14.5 [facility] HEMATOLOGY MCV 76.0 fL 81.0 - 04/02 LOW [facility] 99.0 [facility] HEMATOLOGY MCH 25.4 pg 27.0 - 04/02 [facility] 31.0 [facility] HEMATOLOGY Hct 34.2 % 36.0 - 04/02 [facility] 48.0 [facility] HEMATOLOGY RBC 4.50 M/CMM 4.20 - 04/02 Normal [facility] 5.40 /2012 [facility] HEMATOLOGY Hgb 11.4 g/dL 12.0 - 04/02 LOW [facility] 16.0 [facility] HEMATOLOGY WBC 9.0 K/CMM 3.7 - 10.4 04/02 Normal [facility] HEMATOLOGY MPV 8.4 fL 7.4 - 10.4 04/02 Normal [facility] HEMATOLOGY Microcyte 2+ None Seen 04/02 [facility] (04/02/2013 17:09:00) HEMATOLOGY Basophils # 0.1 K/CMM 0.0 - 0.2 04/02 Normal [facility] HEMATOLOGY Eosinophils 0.1 K/CMM 0.0 - 0.5 04/02 Normal [facility] # /2012 [facility] HEMATOLOGY Monocytes # 0.7 K/CMM 0.0 - 0.8 04/02 Normal [facility] HEMATOLOGY Lymphocytes 1.4 K/CMM 1.0 - 5.5 04/02 Normal [facility] # /2012 [facility] HEMATOLOGY Segs-Bands # 6.7 K/CMM 1.5 - 8.1 04/02 Normal [facility] HEMATOLOGY Basophils 1.3 % 0.0 - 1.0 04/02 HI [facility] HEMATOLOGY Lymphocytes 15.2 % 20.0 - 04/02 LOW [facility] 40.0 [facility] HEMATOLOGY Segs 74.3 % 45.0 - 04/02 Normal [facility] 75.0 [facility] HEMATOLOGY Eosinophils 1.6 % 0.0 - 4.0 04/02 Normal [facility] HEMATOLOGY Monocytes 7.6 % 2.0 - 12.0 04/02 Normal [facility] Chest Chest 1view EXAM: XR CHEST 1 VIEW 04/02 - [facility] - [facility] DATE: 2013-04-02 1638 hours Read by: Francheska Hall Dictated Date/time: 04/02/13 17:06 Electronically Signed by: Francheska Hall MD 04/02/13 17:13 FINAL REPORT INDICATION: Chest pain COMPARISON: March 07, 2013 TECHNIQUE: Single AP view of the chest DISCUSSION: There is scattered subsegmental atelectasis bilaterally, otherwise no pulmonary or pleural based abnormality is identified. The cardiomediastinal silhouette is normal for technique. No acute bony abnormality is identified. IMPRESSION: Mild, scattered subsegmental atelectasis. Otherwise no acute cardiopulmonary mallet. BEDSIDE Gluc POC 229 mg/dL 70 - 99 03/09 ND 1Interpretive [facility] GLUCOSE Lifscn Data: [facility] Center Upper Reportable Limit: 200 mg/dL. BEDSIDE Comment1 Notify 03/09 NA [facility] GLUCOSE RN/MD /2012 [facility] CHEMISTRY eGFR 88 03/09 NA 4Result Comment: The eGFR is calculated using the CKD-EPI formula. In most young, healthy individuals the eGFR will be > 90 mL/min/1.73m2. The eGFR declines with age. An eGFR of 60-89 may be normal in [facility] mL/min/1.7 some populations, particularly the elderly, for whom the CKD-EPI formula has not been extensively validated. Use of the eGFR is not recommended in the following populations: [place] [address] [facility] Individuals with unstable creatinine concentrations, including patients and those with serious co-morbid conditions. Patients with extremes in muscle mass or diet. The data above are obtained from the National Kidney Disease Education Program (NKDEP) which additionally recommends that when the eGFR is used in patients with extremes of body mass index for purposes of drug dosing, the eGFR should be multiplied by the estimated BMI. CHEMISTRY BUN 7 mg/dL 7 - 22 03/09 Normal [facility] CHEMISTRY Creatinine 0.8 mg/dL 0.5 - 1.4 03/09 Normal [facility] CHEMISTRY Sodium Lvl 138 meq/L 135 - 145 03/09 Normal [facility] CHEMISTRY Potassium 4.7 meq/L 3.5 - 5.1 03/09 Normal [facility] CHEMISTRY Chloride Lvl 104 meq/L 95 - 109 03/09 Normal [facility] CHEMISTRY CO2 23 meq/L 24 - 32 03/09 LOW [facility] CHEMISTRY Bili Total 0.2 mg/dL 0.2 - 1.3 03/09 Normal [facility] CHEMISTRY AST 22 unit/L 0 - 37 03/09 Normal [facility] CHEMISTRY Total 4.8 g/dL 6.4 - 8.4 03/09 LOW [facility] Protein [facility] CHEMISTRY Calcium Lvl 7.4 mg/dL 8.5 - 10.5 03/09 LOW [facility] CHEMISTRY Albumin Lvl 1.9 g/dL 3.5 - 5.0 03/09 LOW [facility]2012 [facility] CHEMISTRY Glucose Lvl 192 mg/dL 70 - 99 03/09 ND 7Interpretive Data: Adult reference range values reflect the clinical guidelines of the [place] [employer]. [facility] CHEMISTRY Alk Phos 162 unit/L 39 - 136 03/09 HI [facility] CHEMISTRY ALT 18 unit/L 0 - 65 03/09 Normal [facility] CHEMISTRY A/G Ratio 0.7 0.7 - 1.6 03/09 Normal [facility] CHEMISTRY Globulin 2.9 g/dL 2.0 - 4.0 03/09 Normal [facility] CHEMISTRY AGAP 15.7 meq/L 10.0 - 07/ Normal [facility] 20.0 [facility] CHEMISTRY B/C Ratio 9 6 - 25 03/09 Normal [facility] HEMATOLOGY Eosinophils 1.9 % 0.0 - 4.0 07/ Normal [facility] HEMATOLOGY Basophils 1.0 % 0.0 - 1.0 03/09 Normal [facility] HEMATOLOGY Anisocyte 1+ None Seen 03/09 [facility] (03/09/2013 01:09:00) HEMATOLOGY Lymphocytes 2.0 K/CMM 1.0 - 5.5 03/09 Normal [place] # /2012 [facility] HEMATOLOGY Monocytes # 0.6 K/CMM 0.0 - 0.8 07 Normal /2012 [facility] HEMATOLOGY Eosinophils 0.1 K/CMM 0.0 - 0.5 03/09 Normal [place] /2012 [facility] HEMATOLOGY Basophils # 0.1 K/CMM 0.0 - 0.2 03/09 Normal /2012 [facility] HEMATOLOGY Segs-Bands # 4.6 K/CMM 1.5 - 8.1 03/09 Normal [facility] HEMATOLOGY Segs 62.8 % 45.0 - 07/04 Normal [place] 75.0 /2012 [facility] HEMATOLOGY Lymphocytes 26.4 % 20.0 - 07/04 Normal [place] 40.0 [facility] HEMATOLOGY Monocytes 7.9 % 2.0 - 12.0 07/ Normal [facility] HEMATOLOGY RDW 20.7 % 11.5 - 07/04 HI [place] 14.5 /2012 [facility] HEMATOLOGY Platelet 304 K/CMM 133 - 450 03/09 Normal [facility] HEMATOLOGY MPV 8.0 fL 7.4 - 10.4 03/09 Normal [facility] HEMATOLOGY Hct 24.9 % 36.0 - 07/ LOW [place] 48.0 /2012 [facility] HEMATOLOGY MCV 79.3 fL 81.0 - 07/04 [facility] [place] 99.0 /2012 [facility] HEMATOLOGY MCH 24.7 pg 27.0 - 07/ [facility] [place] 31.0 /2012 [facility] HEMATOLOGY MCHC 31.2 g/dL 32.0 - 07/ LOW [place] 36.0 /2012 [facility] HEMATOLOGY RBC 3.14 M/CMM 4.20 - 07/04 [facility] [place] 5.40 /2012 [facility] HEMATOLOGY Hgb 7.8 g/dL 12.0 - 07/ [facility] 16.0 [facility] HEMATOLOGY WBC 7.4 K/CMM 3.7 - 10.4 03/09 Normal [facility] BEDSIDE Gluc POC 131 mg/dL 70 - 99 / HI 2Interpretive [facility] GLUCOSE ga Data: [facility] Upper Reportable Limit: 200 mg/dL. BEDSIDE Comment1 Notify 03/09 NA [facility] GLUCOSE RN/ /2012 [facility] BEDSIDE Comment1 Notify 03/09 NA [facility] GLUCOSE RN/MD /2012 [facility] BEDSIDE Gluc POC 155 mg/dL 70 - 99 / [place] 3Interpretive [facility] GLUCOSE Lifsc Data: [facility] Upper Reportable Limit: 200 mg/dL. CHEMISTRY Magnesium 1.5 mg/dL 1.8 - 2.4 03/08 [facility] CHEMISTRY A/G Ratio 0.7 0.7 - 1.6 03/08 Normal [facility] CHEMISTRY B/C Ratio 8 6 - 25 03/08 Normal [facility] CHEMISTRY Globulin 2.8 g/dL 2.0 - 4.0 03/08 Normal [facility] CHEMISTRY AGAP 15.8 meq/L 10.0 - 03/08 [facility] 20.0 [facility] CHEMISTRY Potassium 3.8 meq/L 3.5 - 5.1 03/08 Normal [facility] CHEMISTRY Chloride Lvl 100 meq/L 95 - 109 03/08 Normal [facility] CHEMISTRY CO2 23 meq/L 24 - 32 03/08 [facility] CHEMISTRY Total 4.8 g/dL 6.4 - 8.4 03/08 [facility] Protein [facility] CHEMISTRY AST 10 unit/L 0 - 37 03/08 Normal [facility] CHEMISTRY Calcium Lvl 7.6 mg/dL 8.5 - 10.5 03/08 [facility] CHEMISTRY Bili Total 0.3 mg/dL 0.2 - 1.3 03/08 Normal [facility] CHEMISTRY eGFR 88 03/08 NA 5Result Comment: The eGFR is calculated using the CKD-EPI formula. In most young, healthy individuals the eGFR will be > 90 mL/min/1.73m2. The eGFR declines with age. An eGFR of 60-89 may be normal in [facility] mL/min/1.7 some populations, particularly the elderly, for whom the CKD-EPI formula has not been extensively validated. Use of the eGFR is not recommended in the following populations: [address] Individuals with unstable creatinine concentrations, including patients and those with serious co-morbid conditions. Patients with extremes in muscle mass or diet. The data above are obtained from the National Kidney Disease Education Program (NKDEP) which additionally recommends that when the eGFR is used in patients with extremes of body mass index for purposes of drug dosing, the eGFR should be multiplied by the estimated BMI. CHEMISTRY Glucose Lvl 198 mg/dL 70 - 99 03/08 ND 8Interpretive Data: Adult reference range values reflect the clinical guidelines [facility] of the [employer]. [facility] CHEMISTRY BUN 6 mg/dL 7 - 22 03/08 LOW [facility] CHEMISTRY Creatinine 0.8 mg/dL 0.5 - 1.4 03/08 Normal [facility] CHEMISTRY Sodium Lvl 135 meq/L 135 - 145 03/08 Normal [facility] CHEMISTRY Alk Phos 173 unit/L 39 - 136 03/08 HI [facility] CHEMISTRY ALT 16 unit/L 0 - 65 03/08 Normal [facility] CHEMISTRY Albumin Lvl 2.0 g/dL 3.5 - 5.0 03/08 LOW [facility] CHEMISTRY Lipase Lvl 54 unit/L 73 - 393 / LOW [facility] CHEMISTRY Amylase Lvl 30 unit/L 25 - 115 03/08 Normal [facility] HEMATOLOGY Basophils # 0.1 K/CMM 0.0 - 0.2 03/08 Normal [facility] HEMATOLOGY Anisocyte 1+ None Seen 03/08 [facility] *ABN* Center (03/08/2013 03:01:00) HEMATOLOGY Microcyte 1+ None Seen 03/08 [facility] Center (03/08/2013 03:01:00) HEMATOLOGY Eosinophils 0.2 K/CMM 0.0 - 0.5 / Normal [facility] /2012 [facility] HEMATOLOGY Monocytes # 0.8 K/CMM 0.0 - 0.8 03/08 [facility] HEMATOLOGY Lymphocytes 34.2 % 20.0 - 07/03 Normal [place] 40.0 /2012 [facility] HEMATOLOGY Segs 53.3 % 45.0 - 07/03 Normal [place] 75.0 /2012 [facility] [place] HEMATOLOGY Lymphocytes 3.0 K/CMM 1.0 - 5.5 07/ Normal [place] # /2012 [facility] [place] HEMATOLOGY Segs-Bands # 4.7 K/CMM 1.5 - 8.1 07/ Normal /2012 [facility] HEMATOLOGY Basophils 0.9 % 0.0 - 1.0 07/ Normal /2012 [facility] HEMATOLOGY Eosinophils 2.6 % 0.0 - 4.0 07/ Normal /2012 [facility] HEMATOLOGY Monocytes 9.0 % 2.0 - 12.0 07/ Normal [facility] HEMATOLOGY Hgb 7.9 g/dL 12.0 - 07/ LOW [place] 16.0 /2012 [facility] HEMATOLOGY RBC 3.12 M/CMM 4.20 - 07/03 [facility] 5.40 /2012 [facility] HEMATOLOGY MPV 8.0 fL 7.4 - 10.4 07/ Normal /2012 [facility] HEMATOLOGY Platelet 294 K/CMM 133 - 450 07/ Normal /2012 [facility] HEMATOLOGY MCH 25.3 pg 27.0 - 07/03 [facility] [place] 31.0 /2012 [facility] HEMATOLOGY MCV 79.7 fL 81.0 - 07/ [facility] 99.0 /2012 [facility] HEMATOLOGY Hct 24.9 % 36.0 - 07/03 LOW [place] 48.0 /2012 [facility] HEMATOLOGY WBC 8.8 K/CMM 3.7 - 10.4 07/ Normal [facility] HEMATOLOGY RDW 21.4 % 11.5 - 07/03 HI [facility] 14.5 /2012 [facility] [place] HEMATOLOGY MCHC 31.8 g/dL 32.0 - 07/03 [facility] 36.0 /2012 [facility] CHEMISTRY Troponin-I null 0.00 - 07 Normal [facility] 0.40 [facility] CHEMISTRY Total CK 26 unit/L 12 - 191 03/07 Normal [facility] CHEMISTRY A/G Ratio 0.6 0.7 - 1.6 07 LOW [facility] CHEMISTRY Bili Total 0.6 mg/dL 0.2 - 1.3 03/07 Normal [facility] CHEMISTRY Bili Direct 0.3 mg/dL 0.0 - 0.3 07 Normal [facility] [place] CHEMISTRY Alk Phos 190 unit/L 39 - 136 07 HI [facility] CHEMISTRY Total 5.2 g/dL 6.4 - 8.4 07 LOW [facility] Protein [facility] CHEMISTRY Globulin 3.2 g/dL 2.0 - 4.0 03/07 Normal [facility] CHEMISTRY Bili 0.3 mg/dL 0.0 - 1.0 03/07 Normal [facility] CHEMISTRY AST 11 unit/L 0 - 37 07/ Normal [facility] [place] CHEMISTRY Albumin Lvl 2.0 g/dL 3.5 - 5.0 03/07 LOW [facility] CHEMISTRY ALT 19 unit/L 0 - 65 03/07 Normal [facility] CHEMISTRY Amylase Lvl 26 unit/L 25 - 115 03/07 Normal [facility] CHEMISTRY Lipase Lvl 49 unit/L 73 - 393 03/07 LOW [facility] HEMATOLOGY MPV 8.3 fL 7.4 - 10.4 03/07 Normal [facility] [place] HEMATOLOGY MCH 24.7 pg 27.0 - 07 [facility] 31.0 [facility] [place] HEMATOLOGY MCHC 32.6 g/dL 32.0 - 07 Normal [facility] 36.0 [facility] HEMATOLOGY RDW 20.1 % 11.5 - 07/ [facility] 14.5 [facility] [place] HEMATOLOGY Platelet 362 K/CMM 133 - 450 03/07 Normal [facility] [place] HEMATOLOGY MCV 75.7 fL 81.0 - 07 [facility] 99.0 /2012 [facility] HEMATOLOGY Hgb 8.8 g/dL 12.0 - 07/ [facility] 16.0 /2012 [facility] HEMATOLOGY Hct 26.9 % 36.0 - 07/ [facility] 48.0 [facility] HEMATOLOGY RBC 3.56 M/CMM 4.20 - 07/ [facility] 5.40 /2012 [facility] [place] HEMATOLOGY WBC 11.1 K/CMM 3.7 - 10.4 07 [facility] [place] HEMATOLOGY Lymphocytes 2.4 K/CMM 1.0 - 5.5 07/ Normal [facility] # /2012 [facility] HEMATOLOGY Hypochrom Slight None Seen 03/07 Normal [facility] (03/07/2013 07:43:59) Center HEMATOLOGY Microcyte 2+ None Seen 03/07 [facility] *[facility] (03/07/2013 07:43:59) HEMATOLOGY Anisocyte 1+ None Seen 03/07 [facility] *[facility] (03/07/2013 07:43:59) HEMATOLOGY Basophils # 0.1 K/CMM 0.0 - 0.2 03/07 Normal [facility] HEMATOLOGY Polychrom Slight None Seen 03/07 [facility] (03/07/2013 07:43:59) Center HEMATOLOGY Basophils 0.8 % 0.0 - 1.0 03/07 [facility] HEMATOLOGY Eosinophils 1.3 % 0.0 - 4.0 03/07 [facility] HEMATOLOGY Segs-Bands # 7.6 K/CMM 1.5 - 8.1 03/07 [facility] HEMATOLOGY Monocytes 8.1 % 2.0 - 12.0 03/07 [facility] HEMATOLOGY Monocytes # 0.9 K/CMM 0.0 - 0.8 03/07 HI [facility] HEMATOLOGY Eosinophils 0.1 K/CMM 0.0 - 0.5 03/07 [facility] HEMATOLOGY Target Cell Slight None Seen 03/07 [facility] *[facility] (03/07/2013 07:43:59) HEMATOLOGY Plt Morph Normal 03/07 [facility] (03/07/2013 07:43:59) Center HEMATOLOGY Lymphocytes 22.0 % 20.0 - 03/07 [facility] 40.0 [facility] HEMATOLOGY Segs 67.8 % 45.0 - 07 [facility] 75.0 [facility] CHEMISTRY Lactic Acid 1.7 mMol/L 0.5 - 2.2 03/07 Normal [facility] Lvl [facility] CHEMISTRY Total CK 21 unit/L 12 - 191 03/07 Normal [facility] CHEMISTRY Troponin-I null 0.00 - 07 Normal [facility] 0.40 /2012 [facility] CHEMISTRY eGFR 104 03/07 NA 6Result Comment: The eGFR is calculated using the CKD-EPI formula. In most young, healthy individuals the eGFR will be > 90 mL/min/1.73m2. The eGFR declines with age. An eGFR of 60-89 may be normal in [facility] mL/min/1.7 some populations, particularly the elderly, for whom the CKD-EPI formula has not been extensively validated. Use of the eGFR is not recommended in the following populations: Medical [facility] Individuals with unstable creatinine concentrations, including patients and those with serious co-morbid conditions. Patients with extremes in muscle mass or diet. The data above are obtained from the National Kidney Disease Education Program (NKDEP) which additionally recommends that when the eGFR is used in patients with extremes of body mass index for purposes of drug dosing, the eGFR should be multiplied by the estimated BMI. CHEMISTRY CO2 27 meq/L 24 - 32 03/07 Normal [facility] CHEMISTRY Potassium 3.6 meq/L 3.5 - 5.1 03/07 Normal [facility] CHEMISTRY Chloride Lvl 99 meq/L 95 - 109 03/07 Normal [facility] CHEMISTRY Sodium Lvl 134 meq/L 135 - 145 03/07 LOW [facility] CHEMISTRY BUN 5 mg/dL 7 - 22 03/07 LOW [facility] CHEMISTRY Creatinine 0.7 mg/dL 0.5 - 1.4 07 Normal [facility] CHEMISTRY Glucose Lvl 233 mg/dL 70 - 99 07 HI 9Interpretive Data: Adult reference range values reflect the clinical guidelines of the [employer]. [facility] CHEMISTRY Calcium Lvl 7.7 mg/dL 8.5 - 10.5 03/07 LOW [facility] CHEMISTRY AGAP 11.6 meq/L 10.0 - 07 Normal [facility] 20.0 [facility] CHEMISTRY Temp Art 37.0 Abby 03/07 NA [facility] CHEMISTRY pH Art 7.41 7.35 - 03/07 Normal [facility] 7.45 /2012 [facility] CHEMISTRY pCO2 Art 34 mm[Hg] 35 - 45 03/07 LOW [facility] CHEMISTRY O2 Sat Art 97.5 % 95.0 - 03/07 Normal [facility] 100.0 [facility] CHEMISTRY HCO3 Art 22 mMol/L 22 - 26 03/07 Normal [facility] CHEMISTRY BE Art -2 mMol/L -2-2 - 2 03/07 Normal [facility] CHEMISTRY pO2 Art 96 mm[Hg] 80 - 100 03/07 Normal [facility] Chest Chest 1view EXAM: CHEST 1 VIEW 03/07 - [facility] - [facility] This report was dictated by a Rehabilitation Tech/Fellow. I have personally reviewed the images as Center well as the Resident's interpretation and agree with the findings. DATE: Mar 07, 2013 07:45:00 AM Read by: Hansel Gunderson Resident: Hansel Gunderson Dictated Date/time: 03/07/13 08:02 Electronically Signed by: Dung Jamison MD 03/07/13 09:58 FINAL REPORT INDICATION: Tube placement/removal/reposition COMPARISON: Chest x-ray March 06, 2013 at 1843. TECHNIQUE: AP chest radiograph. FINDINGS: Right IJ central venous catheter tip projects over the superior vena cava at the level of T4. No pneumothorax is seen. Lungs are clear bilaterally without effusion. Heart and mediastinum are normal in size and contour. Bones and peripheral soft tissues are unremarkable. IMPRESSION: Right IJ central venous catheter tip projects over the SVC at T4. No pneumothorax. CHEMISTRY Temp Mark 37.0 Abby 03/07 NA [facility] CHEMISTRY pO2 Mark 20 mm[Hg] 20 - 49 03/07 Normal [facility] CHEMISTRY HCO3 Mark 21 mMol/L 22 - 26 03/07 LOW [facility] CHEMISTRY BE Mark -2 mMol/L -2-2 - 2 03/07 Normal [facility] CHEMISTRY O2 Sat Mark 36.2 % 40.0 - 03/07 [facility] 70.0 [facility] CHEMISTRY pCO2 Mark 29 mm[Hg] 38 - 52 03/07 LOW [facility] CHEMISTRY pH Mark 7.46 7.28 - 03/07 [facility] 7.42 [facility] CHEMISTRY Lactic Acid 2.6 mMol/L 0.5 - 2.2 03/07 [facility] CHEMISTRY Phosphorus 3.1 mg/dL 2.5 - 4.5 03/07 Normal [facility] CHEMISTRY Magnesium 1.6 mg/dL 1.8 - 2.4 03/07 LOW [facility] CHEMISTRY Total CK 31 unit/L 12 - 191 03/07 Normal [facility] Center CHEMISTRY Troponin-I null 0.00 - 03/07 Normal [facility] 0.40 [facility] CHEMISTRY U Preg Negative Negative 03/06 Normal Medical (03/06/2013 18:25:00) Center URINALYSIS UA Amorph Occasional /HPF None Seen 03/06 [facility] *ABN* Center (03/06/2013 18:25:00) URINALYSIS UA Mucus Few /LPF None Seen 03/06 Normal Medical (03/06/2013 18:25:00) Center URINALYSIS Micro? Performed 03/06 Normal [facility] (03/06/2013 18:25:00) Center URINALYSIS UA Sq Epi Moderate /LPF Few 03/06 [facility] Medical *ABN* [place] (03/06/2013 18:25:00) URINALYSIS UA WBC 0-2 /HPF None Seen 03/06 Normal [facility] (03/06/2013 18:25:00) Center URINALYSIS UA RBC None Seen 0 - 2 03/06 Normal [facility] (03/06/2013 18:25:00) Center URINALYSIS UA Bacteria Few /HPF None Seen 03/06 Normal [facility] (03/06/2013 18:25:00) Center URINALYSIS UA Bili Negative Negative 03/06 NA [facility] *NA* Center (03/06/2013 18:25:00) URINALYSIS UA 0.2 EU/dL 0.1 - 1.0 03/06 Normal [facility] Urobilinogen /2012 [facility] Center URINALYSIS UA Nitrite Negative Negative 03/06 Normal [facility] (03/06/2013 18:25:00) Center URINALYSIS UA Leuk Est Trace Negative 03/06 ABN Medical *ABN* Center (03/06/2013 18:25:00) URINALYSIS UA Blood Negative Negative 03/06 Normal [facility] (03/06/2013 18:25:00) Center URINALYSIS UA Ketones 40 mg/dL Negative 03/06 ABN Medical *ABN* Center (03/06/2013 18:25:00) URINALYSIS UA Turbidity Clear Clear 03/06 Normal [facility] (03/06/2013 18:25:00) Center URINALYSIS UA Color Yellow Yellow 03/06 NA Medical *NA* [place] (03/06/2013 18:25:00) URINALYSIS UA Spec Grav 1.015 <=1.030 03/06 Normal [facility] URINALYSIS UA Protein Negative Negative 03/06 Normal [facility] (03/06/2013 18:25:00) [place] URINALYSIS UA Glucose 250 mg/dL Negative 03/06 ABN [facility] *ABN* [place] (03/06/2013 18:25:00) URINALYSIS UA pH 7.5 5.0 - 8.0 03/06 Normal [facility] Chest 2 Chest 2 EXAM: CHEST 2 VIEWS 03/06 - [facility] - [facility] This report was dictated by a Rehabilitation Tech/Fellow. I have personally reviewed the images as Center well as the Resident's interpretation and agree with the findings. DATE: Mar 06, 2013 06:47:00 PM Read by: Katelyn Arita Resident: Katelyn Arita Dictated Date/time: 03/06/13 18:57 Electronically Signed by: Leonardo Calderon MD 03/07/13 09:59 FINAL REPORT INDICATION: Chest pain COMPARISON: Chest one view November 2012 TECHNIQUE: Frontal and lateral chest radiographs FINDINGS: Lungs are clear without focal airspace opacity. There is minimal blunting of the left posterior costophrenic sulcus. Cardiomediastinal contours are unchanged. There has been interval removal of the right IJ central venous catheter. There are degenerative changes of both shoulders as well as the midthoracic spine. Surgical clips are present in the right upper quadrant. IMPRESSION: 1. No focal airspace opacity. 2. Trace posterior left pleural effusion. BEDSIDE Comment1 Notify 12/07 NA [facility] GLUCOSE RN/ /2012 [facility] Center BEDSIDE Gluc POC 64 mg/dL 70 - 99 12/07 LOW 3Interpretive [facility] GLUCOSE [facility] Data: [facility] Upper Reportable Limit: 200 mg/dL. BEDSIDE Gluc POC 50 mg/dL 70 - 99 12/07 LOW 4Interpretive [facility] GLUCOSE [facility] Data: [facility] Upper Reportable Limit: 200 mg/dL. BEDSIDE Comment1 Notify 12/07 NA [facility] GLUCOSE RN/ /2012 [facility] TESTING Center BEDSIDE Gluc POC 45 mg/dL 70 - 99 12/07 LOW 5Interpretive [facility] GLUCOSE [facility] Data: [facility] Center Upper Reportable Limit: 200 mg/dL. BEDSIDE Comment1 Notify 12/07 NA [facility] GLUCOSE RN/MD /2012 [facility] CHEMISTRY eGFR 109 12/07 NA 7Result Comment: The eGFR is calculated using the CKD-EPI formula. In most young, healthy individuals the eGFR will be > 90 mL/min/1.73m2. The eGFR declines with age. An eGFR of 60-89 may be normal in [facility] mL/min/1.7 some populations, particularly the elderly, for whom the CKD-EPI formula has not been extensively validated. Use of the eGFR is not recommended in the following populations: [place] [address] Center Individuals with unstable creatinine concentrations, including patients and those with serious co-morbid conditions. Patients with extremes in muscle mass or diet. The data above are obtained from the National Kidney Disease Education Program (NKDEP) which additionally recommends that when the eGFR is used in patients with extremes of body mass index for purposes of drug dosing, the eGFR should be multiplied by the estimated BMI. CHEMISTRY Calcium Lvl 8.3 mg/dL 8.5 - 10.5 12/07 LOW [facility] CHEMISTRY AGAP 12.8 meq/L 10.0 - 12/07 Normal [facility] 20.0 [facility] CHEMISTRY BUN 2 mg/dL 7 - 22 12/07 LOW [facility] CHEMISTRY Glucose Lvl 95 mg/dL 70 - 99 12/07 Normal 10Interpretive Data: Adult reference range values reflect the clinical guidelines of the [employer] [employer]. [facility] CHEMISTRY Potassium 3.8 meq/L 3.5 - 5.1 12/07 Normal [facility] CHEMISTRY Creatinine 0.6 mg/dL 0.5 - 1.4 12/07 Normal [facility] CHEMISTRY Sodium Lvl 140 meq/L 135 - 145 12/07 Normal [facility] CHEMISTRY Chloride Lvl 105 meq/L 95 - 109 12/07 Normal [facility] CHEMISTRY CO2 26 meq/L 24 - 32 12/07 Normal [facility] BEDSIDE Comment2 Verify 12/06 NA [facility] GLUCOSE w/Lab /2012 [facility] BEDSIDE Comment2 Verify 12/06 NA [facility] GLUCOSE w/Lab /2012 [facility] CHEMISTRY AGAP 13.5 meq/L 10.0 - 04 Normal [facility] 20.0 [facility] CHEMISTRY Calcium Lvl 8.1 mg/dL 8.5 - 10.5 12/06 LOW [facility] CHEMISTRY CO2 28 meq/L 24 - 32 04 Normal [facility] CHEMISTRY Chloride Lvl 101 meq/L 95 - 109 12/06 Normal [facility] CHEMISTRY eGFR 104 04 NA 8Result Comment: The eGFR is calculated using the CKD-EPI formula. In most young, healthy individuals the eGFR will be > 90 mL/min/1.73m2. The eGFR declines with age. An eGFR of 60-89 may be normal in [facility] mL/min/1.7 some populations, particularly the elderly, for whom the CKD-EPI formula has not been extensively validated. Use of the eGFR is not recommended in the following populations: [place] [address] Center Individuals with unstable creatinine concentrations, including patients and those with serious co-morbid conditions. Patients with extremes in muscle mass or diet. The data above are obtained from the National Kidney Disease Education Program (NKDEP) which additionally recommends that when the eGFR is used in patients with extremes of body mass index for purposes of drug dosing, the eGFR should be multiplied by the estimated BMI. CHEMISTRY Glucose Lvl 70 mg/dL 70 - 99 12/06 Normal 11Interpretive Data: Adult reference range values reflect the clinical guidelines of the [employer] [employer]. [facility] CHEMISTRY BUN 2 mg/dL 7 - 22 12/06 LOW [facility] CHEMISTRY Creatinine 0.7 mg/dL 0.5 - 1.4 12/06 Normal [facility] Lvl [facility] CHEMISTRY Sodium Lvl 139 meq/L 135 - 145 12/06 Normal [facility] CHEMISTRY Potassium 3.5 meq/L 3.5 - 5.1 12/06 Normal [facility] CHEMISTRY Lipase Lvl 62 unit/L 73 - 393 12/06 LOW [facility] CHEMISTRY Alk Phos 92 unit/L 39 - 136 12/06 Normal [facility] CHEMISTRY Albumin Lvl 2.7 g/dL 3.5 - 5.0 / LOW [facility] CHEMISTRY Total 5.8 g/dL 6.4 - 8.4 12/06 LOW [facility] Protein [facility] CHEMISTRY Globulin 3.1 g/dL 2.0 - 4.0 / Normal [facility] CHEMISTRY A/G Ratio 0.9 0.7 - 1.6 / Normal [facility] CHEMISTRY AST 74 unit/L 0 - 37 12/06 HI [facility] CHEMISTRY ALT 50 unit/L 0 - 65 12/06 Normal [facility] CHEMISTRY Bili 0.1 mg/dL 0.0 - 1.0 12/06 Normal [facility] Indirect [facility] CHEMISTRY Bili Total 0.2 mg/dL 0.2 - 1.3 12/06 Normal [facility] CHEMISTRY Bili Direct 0.1 mg/dL 0.0 - 0.3 12/06 Normal [facility] CHEMISTRY eGFR 109 12/05 NA 9Result Comment: The eGFR is calculated using the CKD-EPI formula. In most young, healthy individuals the eGFR will be > 90 mL/min/1.73m2. The eGFR declines with age. An eGFR of 60-89 may be normal in [facility] mL/min/1.7 /2012 some populations, particularly the elderly, for whom the CKD-EPI formula has not been extensively validated. Use of the eGFR is not recommended in the following populations: [address] Individuals with unstable creatinine concentrations, including patients and those with serious co-morbid conditions. Patients with extremes in muscle mass or diet. The data above are obtained from the National Kidney Disease Education Program (NKDEP) which additionally recommends that when the eGFR is used in patients with extremes of body mass index for purposes of drug dosing, the eGFR should be multiplied by the estimated BMI. CHEMISTRY Glucose Lvl 152 mg/dL 70 - 99 12/05 HI 12Interpretive Data: Adult reference range values reflect the clinical guidelines of the [employer] [employer]. [facility] CHEMISTRY Creatinine 0.6 mg/dL 0.5 - 1.4 12/05 Normal [facility] CHEMISTRY BUN 1 mg/dL 7 - 22 12/05 LOW [facility] CHEMISTRY Chloride Lvl 102 meq/L 95 - 109 12/05 [facility] CHEMISTRY Potassium 3.3 meq/L 3.5 - 5.1 12/05 LOW [facility] CHEMISTRY Sodium Lvl 140 meq/L 135 - 145 12/05 Normal [facility] [place] CHEMISTRY Calcium Lvl 7.9 mg/dL 8.5 - 10.5 12/05 LOW [facility] CHEMISTRY CO2 29 meq/L 24 - 32 12/05 Normal [facility] CHEMISTRY AGAP 12.3 meq/L 10.0 - 12/05 Normal [place] 20.0 [facility] CHEMISTRY Ca Norm mgdL 4.84 mg/dL 4.65 - 12/03 Normal [facility] 5. Medical [place] CHEMISTRY Ca Ion mgdL 4.84 mg/dL 4.65 - 12/03 Normal [facility] 01.23 [facility] CHEMISTRY Ca Ion 1.21 1.16 - 12/03 Normal [place] mMol/L 1. [facility] CHEMISTRY Ca Norm 1.21 1.16 - 12/03 Normal [place] mMol/L . [facility] CHEMISTRY Magnesium 1.8 mg/dL 1.8 - 2.4 12/03 Normal [facility] l [facility] CHEMISTRY Phosphorus 3.4 mg/dL 2.5 - 4.5 12/03 Normal [facility] HEMATOLOGY Lymphocytes 1.8 K/CMM 1.0 - 5.5 12/03 Normal [facility] HEMATOLOGY Lymphocytes 23.6 % 20.0 - 12/03 Normal [place] 40.0 [facility] HEMATOLOGY Eosinophils 2.9 % 0.0 - 4.0 12/03 Normal [facility] HEMATOLOGY Monocytes 9.1 % 2.0 - 12.0 12/03 Normal [facility] HEMATOLOGY Basophils 0.6 % 0.0 - 1.0 12/03 Normal [facility] HEMATOLOGY Segs-Bands # 5.0 K/CMM 1.5 - 8.1 12/03 Normal [facility] HEMATOLOGY Segs 63.8 % 45.0 - 12/03 Normal [place] 75.0 [facility] HEMATOLOGY Monocytes # 0.7 K/CMM 0.0 - 0.8 12/03 Normal [facility] HEMATOLOGY Eosinophils 0.2 K/CMM 0.0 - 0.5 12/03 Normal [facility] # /2012 [facility] HEMATOLOGY Microcyte 1+ None Seen 12/03 ABN Medical *ABN* Center (12/03/2012 01:02:00) HEMATOLOGY WBC 7.8 K/CMM 3.7 - 10.4 12/03 Normal [facility] HEMATOLOGY Hct 27.8 % 36.0 - 12/03 LOW [facility] 48.0 /2012 [facility] HEMATOLOGY MPV 8.5 fL 7.4 - 10.4 12/03 Normal [facility] HEMATOLOGY MCHC 32.4 g/dL 32.0 - 12/03 Normal [facility] 36.0 /2012 [facility] HEMATOLOGY RDW 18.9 % 11.5 - 12/03 [facility] 14.5 /2012 [facility] HEMATOLOGY MCH 24.6 pg 27.0 - 12/03 [facility] 31.0 /2012 [facility] HEMATOLOGY RBC 3.66 M/CMM 4.20 - 12/03 LOW [facility] 5.40 /2012 [facility] HEMATOLOGY MCV 75.9 fL 81.0 - 12/03 LOW [facility] 99.0 /2012 [facility] HEMATOLOGY Platelet 224 K/CMM 133 - 450 12/03 Normal [facility] HEMATOLOGY Hgb 9.0 g/dL 12.0 - 12/03 LOW [facility] 16.0 [facility] Microbiolo Culture: 12/02 [facility] gy Blood /2012 [facility] Microbiolo Culture: 12/02 [facility] gy MRSA /2012 [facility] Microbiolo Culture: 12/02 [facility] gy Resistant /2012 [facility] r Screen CHEMISTRY Ketone 1.42 <=0.27 12/02 [facility] Quantitative mmol/L /2012 [facility] URINALYSIS UA WBC 1 /HPF 0 - 5 12/02 Normal [facility] URINALYSIS UA RBC null 0 - 2 12/02 Normal [facility] URINALYSIS UA <=1.0 0.1 - 1.0 12/02 NA [facility] Urobilinogen mg/dL /2012 Medical
*NA*< Center br/>(12/02 04:02:55) <sup> </sup> URINALYSIS UA Sq Epi Moderate /LPF Few 12/02 ABN Medical *ABN* Center (12/02/2012 04:02:55) URINALYSIS UA Leuk Est Negative Negative 12/02 Normal [facility] (12/02/2012 04:02:55) Center URINALYSIS UA Nitrite Negative Negative 12/02 Normal Medical (12/02/2012 04:02:55) Center URINALYSIS UA Mucus Few /LPF None Seen 12/02 NA Medical *NA* Center (12/02/2012 04:02:55) URINALYSIS UA Ketones 40 mg/dL Negative 12/02 ABN Medical *ABN* Center (12/02/2012 04:02:55) URINALYSIS UA Blood Negative Negative 12/02 Normal [facility] (12/02/2012 04:02:55) Center URINALYSIS UA Glucose >=1000 mg/dL Negative 12/02 ABN Medical *ABN* Center (12/02/2012 04:02:55) URINALYSIS UA Bili Negative Negative 12/02 NA Medical *NA* Center (12/02/2012 04:02:55) URINALYSIS UA Protein Negative mg/dL Negative 12/02 Normal [facility] (12/02/2012 04:02:55) Center URINALYSIS UA Turbidity Clear Clear 12/02 Normal [facility] (12/02/2012 04:02:55) Center URINALYSIS UA pH 5.5 5.0 - 8.0 12/02 Normal [facility] Center URINALYSIS UA Spec Grav 1.010 <=1.030 12/02 Normal [facility] Center URINALYSIS UA Color Yellow Yellow 12/02 NA Medical *NA* Center (12/02/2012 04:02:55) HEMATOLOGY MPV 8.9 fL 7.4 - 10.4 12/02 Normal [facility] HEMATOLOGY Hct 27.9 % 36.0 - 12/02 LOW [facility] 48.0 [facility] HEMATOLOGY MCV 76.1 fL 81.0 - 12/02 LOW [facility] 99.0 [facility] HEMATOLOGY MCH 25.2 pg 27.0 - 12/02 LOW [place] 31.0 [facility] HEMATOLOGY MCHC 33.2 g/dL 32.0 - 12/02 Normal [facility] 36.0 [facility] HEMATOLOGY RDW 19.3 % 11.5 - 12/02 HI [place] 14.5 [facility] HEMATOLOGY Platelet 224 K/CMM 133 - 450 12/02 Normal [facility] HEMATOLOGY WBC 8.6 K/CMM 3.7 - 10.4 12/02 Normal [facility] HEMATOLOGY Hgb 9.3 g/dL 12.0 - 12/02 LOW [place] 16.0 [facility] HEMATOLOGY RBC 3.67 M/CMM 4.20 - 12/02 LOW [place] 5.40 /2012 [facility] HEMATOLOGY Segs-Bands # 6.4 K/CMM 1.5 - 8.1 12/02 Normal [facility] HEMATOLOGY Lymphocytes 1.5 K/CMM 1.0 - 5.5 12/02 Normal [facility] HEMATOLOGY Eosinophils 0.6 % 0.0 - 4.0 12/02 Normal [facility] HEMATOLOGY Basophils 0.7 % 0.0 - 1.0 12/02 Normal [facility] HEMATOLOGY Lymphocytes 17.3 % 20.0 - 12/02 LOW [place] 40.0 [facility] HEMATOLOGY Monocytes # 0.7 K/CMM 0.0 - 0.8 12/02 Normal [facility] HEMATOLOGY Microcyte 1+ None Seen 12/02 ABN Medical *ABN* Center (12/02/2012 04:02:51) HEMATOLOGY Eosinophils 0.1 K/CMM 0.0 - 0.5 12/02 Normal [facility] HEMATOLOGY Basophils # 0.1 K/CMM 0.0 - 0.2 12/02 Normal [facility] HEMATOLOGY Segs 73.8 % 45.0 - 12/02 Normal [facility] 75.0 [facility] HEMATOLOGY Monocytes 7.6 % 2.0 - 12.0 12/02 Normal [facility] Microbiolo Culture: 12/02 [facility] gy [facility] CHEMISTRY POC A Glu 305 mg/dL 70 - 99 12/02 HI [facility] CHEMISTRY POC A Hct 29.0 % 36.0 - 12/02 LOW [place] 48.0 [facility] CHEMISTRY POC A O2 Sat 97.0 % 95.0 - 12/02 Normal [place] 100.0 [facility] CHEMISTRY POC A K 3.4 meq/L 3.5 - 5.1 12/02 LOW [facility] CHEMISTRY POC A Na 130 meq/L 135 - 145 12/02 LOW [facility] [place] CHEMISTRY POC A PCO2 38 mm[Hg] 35 - 45 12/02 Normal [facility] [place] CHEMISTRY POC A BE 2 mMol/L -2-2 - 2 12/02 Normal [facility] CHEMISTRY POC A HCO3 26 mMol/L 22 - 26 12/02 Normal [facility] [place] CHEMISTRY POC A Source ART 12/02 NA [facility] CHEMISTRY POC A PO2 89 mm[Hg] 80 - 100 12/02 Normal [facility] [place] CHEMISTRY POC A pH 7.44 7.35 - 12/02 Normal 7. [facility] CHEMISTRY POC A Temp 37.0 Abby 12/02 NA [facility] CHEMISTRY POC A Ca Ion 1.12 1.16 - 12/02 LOW [place] mMol/L 1. [facility] [place] CHEMISTRY POC A LA 0.8 mMol/L 0.5 - 2.2 12/02 Normal [facility] CHEMISTRY Magnesium 1.9 mg/dL 1.8 - 2.4 12/02 Normal [facility] [place] CHEMISTRY Phosphorus 2.7 mg/dL 2.5 - 4.5 12/02 Normal [facility] CHEMISTRY Ca Norm mgdL 4.36 mg/dL 4.65 - 12/02 LOW [facility] . [facility] CHEMISTRY Ca Ion 1.14 1.16 - 12/02 LOW [place] mMol/L 1. [facility] [place] CHEMISTRY Ca Ion mgdL 4.56 mg/dL 4.65 - 12/02 LOW . [facility] CHEMISTRY Ca Norm 1.09 1.16 - 12/02 LOW [place] mMol/L 1. [facility] HEMATOLOGY Platelet 223 K/CMM 133 - 450 12/02 Normal [facility] HEMATOLOGY MPV 9.2 fL 7.4 - 10.4 12/02 Normal [facility] HEMATOLOGY MCHC 32.3 g/dL 32.0 - 12/02 Normal [facility] 36.0 Medical [facility] HEMATOLOGY RDW 19.2 % 11.5 - 12/02 HI 14.5 Medical [facility] HEMATOLOGY WBC 7.6 K/CMM 3.7 - 10.4 12/02 Normal [facility] HEMATOLOGY Hgb 9.2 g/dL 12.0 - 12/02 LOW [place] 16.0 [facility] HEMATOLOGY Hct 28.6 % 36.0 - 12/02 LOW [place] 48.0 [facility] HEMATOLOGY MCV 76.3 fL 81.0 - 12/02 [facility] 99.0 [facility] HEMATOLOGY MCH 24.6 pg 27.0 - 12/02 LOW [place] 31.0 [facility] HEMATOLOGY RBC 3.74 M/CMM 4.20 - 12/02 [facility] [place] 5.40 [facility] HEMATOLOGY Microcyte 1+ None Seen 12/02 ABN Medical *ABN* Center (12/02/2012 03:00:00) HEMATOLOGY Basophils # 0.1 K/CMM 0.0 - 0.2 12/02 Normal [facility] HEMATOLOGY Monocytes # 0.6 K/CMM 0.0 - 0.8 12/02 Normal [facility] HEMATOLOGY Lymphocytes 1.9 K/CMM 1.0 - 5.5 12/02 Normal [place] # /2012 [facility] HEMATOLOGY Segs-Bands # 5.0 K/CMM 1.5 - 8.1 12/02 Normal [facility] HEMATOLOGY Segs 65.5 % 45.0 - 12/02 Normal [place] 75.0 [facility] HEMATOLOGY Lymphocytes 25.0 % 20.0 - 12/02 Normal [place] 40.0 [facility] HEMATOLOGY Monocytes 8.4 % 2.0 - 12.0 12/02 Normal [facility] HEMATOLOGY Eosinophils 0.4 % 0.0 - 4.0 12/02 Normal [facility] HEMATOLOGY Basophils 0.7 % 0.0 - 1.0 12/02 Normal [facility] CHEMISTRY Magnesium 2.0 mg/dL 1.8 - 2.4 12/01 Normal [facility] Lvl [facility] CHEMISTRY Ca Norm mgdL 4.48 mg/dL 4.65 - 12/01 LOW [place] 5. [facility] CHEMISTRY Ca Ion mgdL 4.68 mg/dL 4.65 - 12/01 Normal [facility] 5. [facility] CHEMISTRY Ca Ion 1.17 1.16 - 12/01 Normal [place] mMol/L 1.30 [facility] CHEMISTRY Ca Norm 1.12 1.16 - 12/01 LOW [facility] mMol/L 1.30 [facility] CHEMISTRY Phosphorus 2.7 mg/dL 2.5 - 4.5 12/01 Normal [facility] URINALYSIS UA <=1.0 0.1 - 1.0 11/30 NA [facility] Urobilinogen mg/dL Medical
*NA*< Center br/>(11/30 17:41:33) <sup> </sup> URINALYSIS UA Mucus Few /LPF None Seen 11/30 NA [facility] *NA* [place] (11/30/2012 17:41:33) URINALYSIS UA WBC null 0 - 5 11/30 Normal [facility] URINALYSIS UA Sq Epi Moderate /LPF Few 11/30 ABN [facility] *ABN* [place] (11/30/2012 17:41:33) URINALYSIS UA Protein Negative mg/dL Negative 11/30 Normal [facility] (11/30/2012 17:41:33) [place] URINALYSIS UA pH 5.0 5.0 - 8.0 11/30 Normal [facility] URINALYSIS UA Spec Grav 1.004 <=1.030 11/30 Normal [facility] URINALYSIS UA Turbidity Clear Clear 11/30 Normal [facility] (11/30/2012 17:41:33) Center URINALYSIS UA Color Light Yellow Yellow 11/30 NA [facility] *NA* [place] (11/30/2012 17:41:33) URINALYSIS UA Leuk Est Negative Negative 11/30 Normal [facility] (11/30/2012 17:41:33) Center URINALYSIS UA Nitrite Negative Negative 11/30 Normal [facility] (11/30/2012 17:41:33) Center URINALYSIS UA Blood Negative Negative 11/30 Normal [facility] (11/30/2012 17:41:33) Center URINALYSIS UA Bili Negative Negative 11/30 NA [facility] *NA* [place] (11/30/2012 17:41:33) URINALYSIS UA Ketones 10 mg/dL Negative 11/30 ABN Medical *ABN* Center (11/30/2012 17:41:33) URINALYSIS UA Glucose Negative mg/dL Negative 11/30 NA Medical *NA* Center (11/30/2012 17:41:33) CHEMISTRY Ketone 1.65 <=0.27 11/30 HI [facility] Quantitative mmol/L /2012 [facility] HEMATOLOGY PT 14.1 s 12.0 - 11/30 Normal [facility] 14.7 /2012 [facility] HEMATOLOGY PTT 28.1 s 22.9 - 11/30 Normal 18Interpretiv [facility] 35.8 /2013 e Data: [facility] Therapeutic Range: 57 - 92 Seconds HEMATOLOGY INR 1.07 0.85 - 11/30 Normal 16Interpretive Data: RECOMMENDED RANGES FOR PROTIME INR: [facility] . 2.0-3.0 for most medical and surgical thromboembolic states. Medical 2.5-3.5 for artificial heart valves and recurrent embolism. Center INR SHOULD BE USED ONLY FOR PATIENTS ON STABLE ANTICOAGULANT THERAPY. CHEMISTRY U Potassium 31.2 meq/L 11/30 NA 14Interpretiv e Data: No Medical established Center reference ranges. CHEMISTRY U Sodium 87 meq/L 11/30 NA 13Interpretiv e Data: No [facility] established Center reference ranges. CHEMISTRY U Chloride 134 meq/L 11/30 NA [facility] CHEMISTRY Bili Total 0.4 mg/dL 0.2 - 1.3 11/30 Normal [facility] CHEMISTRY Total 6.3 g/dL 6.4 - 8.4 11/30 LOW [facility] Protein [facility] CHEMISTRY Albumin Lvl 2.9 g/dL 3.5 - 5.0 11/30 LOW [facility] CHEMISTRY Alk Phos 127 unit/L 39 - 136 11/30 Normal [facility] CHEMISTRY Bili Direct 0.2 mg/dL 0.0 - 0.3 11/30 Normal [facility] CHEMISTRY AST 22 unit/L 0 - 37 11/30 Normal [facility] CHEMISTRY ALT 20 unit/L 0 - 65 11/30 Normal [facility] CHEMISTRY A/G Ratio 0.9 0.7 - 1.6 11/30 Normal [facility] CHEMISTRY Bili 0.2 mg/dL 0.0 - 1.0 11/30 Normal [facility] Indirect [facility] CHEMISTRY Globulin 3.4 g/dL 2.0 - 4.0 11/30 Normal [facility] HEMATOLOGY Basophils # 0.1 K/CMM 0.0 - 0.2 11/30 Normal [facility] HEMATOLOGY PT 13.9 s 12.0 - 11/30 Normal [facility] 14.7 [facility] HEMATOLOGY PTT 26.5 s 22.9 - 11/30 Normal 19Interpretiv [facility] 35.8 /2012 e Data: [facility] Therapeutic Range: 57 - 92 Seconds HEMATOLOGY INR 1.05 0.85 - 11/30 Normal 17Interpretive Data: RECOMMENDED RANGES FOR PROTIME INR: [facility] . 2.0-3.0 for most medical and surgical thromboembolic states. Medical 2.5-3.5 for artificial heart valves and recurrent embolism. Center INR SHOULD BE USED ONLY FOR PATIENTS ON STABLE ANTICOAGULANT THERAPY. CHEMISTRY POC V Temp 37.0 Abby 11/29 NA [facility] CHEMISTRY POC V Ion Ca 1.16 1.16 - 11/29 Normal [facility] mMol/L 1.30 [facility] CHEMISTRY POC V K 3.5 meq/L 3.5 - 5.1 11/29 Normal [facility] CHEMISTRY POC V Na 139 meq/L 135 - 145 11/29 Normal [facility] CHEMISTRY POC V LA 0.8 mMol/L 0.5 - 2.2 11/29 Normal [facility] CHEMISTRY POC V Source MARK 11/29 NA [facility] CHEMISTRY POC V O2 Sat 86.0 % 40.0 - 11/29 [facility] 70.0 [facility] CHEMISTRY POC V Glu 144 mg/dL 70 - 99 11/29 [facility] CHEMISTRY POC V BE -4 mmol/L -2-2 - 2 11/29 LOW [facility] CHEMISTRY POC V pH 7.42 7.28 - 11/29 Normal [facility] 7.42 [facility] CHEMISTRY POC V PCO2 31 mm[Hg] 38 - 52 11/29 LOW [facility] CHEMISTRY POC V PO2 51 mm[Hg] 20 - 49 11/29 [facility] CHEMISTRY POC V HCO3 20 mmol/L 22 - 26 11/29 LOW [facility] CHEMISTRY Troponin-I 0.05 ng/mL 0.00 - 11/29 Normal [facility] 0.40 [facility] CHEMISTRY Total CK 46 unit/L 12 - 191 11/29 Normal [facility] CHEMISTRY Troponin-T null 0.000 - 11/29 Normal [facility] 0.100 /2012 [facility] CHEMISTRY Ketone 4.63 <=0.27 11/29 HI [place] Quantitative mmol/L /2012 [facility] CHEMISTRY POC A Ca Ion 1.17 1.16 - 11/29 Normal [facility] mMol/L 1.30 [facility] CHEMISTRY POC A K 3.6 meq/L 3.5 - 5.1 11/29 Normal [facility] CHEMISTRY POC A Na 137 meq/L 135 - 145 11/29 Normal [facility] CHEMISTRY POC A Glu 327 mg/dL 70 - 99 11/29 HI [facility] CHEMISTRY POC A LA 1.3 mMol/L 0.5 - 2.2 11/29 Normal [facility] CHEMISTRY POC A Temp 37.0 Abby 11/29 NA [facility] CHEMISTRY POC A Source ART 11/29 NA [facility] CHEMISTRY POC A O2 Sat 98.0 % 95.0 - 11/29 Normal [facility] 100.0 [facility] CHEMISTRY POC A BE -11 mMol/L -2-2 - 2 11/29 LOW [facility] CHEMISTRY POC A HCO3 14 mMol/L 22 - 26 11/29 LOW [facility] CHEMISTRY POC A PCO2 26 mm[Hg] 35 - 45 11/29 CRIT [facility] CHEMISTRY POC A PO2 115 mm[Hg] 80 - 100 11/29 HI [facility] CHEMISTRY POC A pH 7.33 7.35 - 11/29 LOW [facility] 7.45 [facility] BACTERIAL MRSA by PCR Positive 1, 2 11/29 ABN 2Interpretive Data: Interpretive Data: The [employer] Light[employer] MRSA assay is a qualitative test for the direct detection of nasal colonization with methicillin-resistant Staphylococcus aureus (MRSA) to aid [facility] - in the prevention and control of MRSA infections in healthcare settings. A positive result does not indicate an infection or require treatment. A negative result does not exclude colonization or infection. Medical *ABN* Center The polymerase chain reaction (PCR) assay detects a proprietary sequence indicative of the integration of the SCCmec cassette into the Staphylococcus aureus chromosome, indicating the presence of MRSA D (11/29/2012 14:30:36) NA. The assay utilizes FDA cleared IVD reagents. Performance characteristics have been verified by the [facility] within the [facility]. The [facility] atory is authorized under the Clinical Laboratory Improvement Amendment of 1988 (CLIA-88) to perform high complexity testing. CHEMISTRY Temp Art 37.0 Abby 11/29 NA [facility] CHEMISTRY O2 Sat Art 96.6 % 95.0 - 11/29 Normal [facility] 100.0 [facility] [place] CHEMISTRY pO2 Art 96 mm[Hg] 80 - 100 11/29 Normal [facility] CHEMISTRY pCO2 Art 25 mm[Hg] 35 - 45 11/29 CRIT 15Result Comment: [facility] Result(s) called to jose rodriguez at _11/29/2012 12:25:56 CDT bykak_. Read back OK. CHEMISTRY BE Art -12 mMol/L -2-2 - 2 11/29 LOW [facility] CHEMISTRY HCO3 Art 12 mMol/L - 11/29 LOW [facility] CHEMISTRY pH Art 7.30 7.35 - 11/29 [facility] 7.45 /2012 [facility] CHEMISTRY A/G Ratio 0.8 0.7 - 1.6 11/29 Normal [facility] CHEMISTRY Globulin 4.0 g/dL 2.0 - 4.0 11/29 Normal [facility] CHEMISTRY AST 17 unit/L 0 - 37 11/29 Normal [facility] CHEMISTRY Bili Total 0.8 mg/dL 0.2 - 1.3 11/29 Normal [facility] CHEMISTRY B/C Ratio 14 6 - 25 11/29 Normal [facility] CHEMISTRY Total 7.4 g/dL 6.4 - 8.4 11/29 Normal [facility] Protein [facility] CHEMISTRY ALT 22 unit/L 0 - 65 11/29 Normal [facility] CHEMISTRY Albumin Lvl 3.4 g/dL 3.5 - 5.0 11/29 LOW [facility] CHEMISTRY Alk Phos 126 unit/L 39 - 136 11/29 Normal [facility] CHEMISTRY Troponin-I null 0.00 - 11/29 Normal [place] 0.40 [facility] CHEMISTRY Lipase Lvl 70 unit/L 73 - 393 11/29 LOW [facility] CHEMISTRY B/C Ratio 10 6 - 25 11/29 Normal [facility] HEMATOLOGY Hypochrom Slight None Seen 11/29 Normal [facility] (11/28/2012 21:00:20) Center HEMATOLOGY Polychrom Slight None Seen 11/29 Normal [facility] (11/28/2012 21:00:20) Center HEMATOLOGY Anisocyte 1+ None Seen 11/29 [facility] Medical *ABN* [place] (11/28/2012 21:00:20) HEMATOLOGY Large Plt Slight None Seen 11/29 [facility] Medical *ABN* [place] (11/28/2012 21:00:20) HEMATOLOGY Eosinophils 0.2 K/CMM 0.0 - 0.5 11/29 Normal [facility] CHEMISTRY U Preg Negative Negative 11/29 Normal [facility] (11/28/2012 20:55:00) [place] URINALYSIS UA Blood Negative Negative 11/29 Normal [facility] (11/28/2012 20:55:00) [place] URINALYSIS UA Bili Small 6 Negative 11/29 [facility] 6Result Comment: Interpret positive bilirubin results with caution. Confirmatory testing not possible due to the unavailability of reagent. Correlation with Medical *ABN* serum chemistry results recommended. [place] (11/28/2012 20:55:00) URINALYSIS UA Protein Negative Negative 11/29 Normal [facility] (11/28/2012 20:55:00) [place] URINALYSIS Micro? Not Indicated 11/29 Normal [facility] (11/28/2012 20:55:00) [place] URINALYSIS UA Glucose Negative Negative 11/29 Normal [facility] (11/28/2012 20:55:00) [place] URINALYSIS UA Ketones 40 mg/dL Negative 11/29 [facility] Medical *ABN* [place] (11/28/2012 20:55:00) URINALYSIS UA Leuk Est Negative Negative 11/29 Normal [facility] (11/28/2012 20:55:00) [place] URINALYSIS UA 0.2 EU/dL 0.1 - 1.0 11/29 Normal [facility] Urobilinogen [facility] URINALYSIS UA Nitrite Negative Negative 11/29 Normal [facility] (11/28/2012 20:55:00) Center URINALYSIS UA Spec Grav 1.010 <=1.030 11/29 Normal [facility] URINALYSIS UA pH 6.0 5.0 - 8.0 11/29 Normal [facility] URINALYSIS UA Color Yellow Yellow 11/29 NA Medical *NA* Center (11/28/2012 20:55:00) URINALYSIS UA Turbidity Clear Clear 11/29 Normal [facility] (11/28/2012 20:55:00) Center BEDSIDE Comment1 Notify 11/17 [facility] GLUCOSE RN/ [facility] TESTING Center BEDSIDE Gluc POC 219 mg/dL 70 - 99 11/17 ND 1Interpretive [facility] GLUCOSE [facility] Data: Medical TESTING Center Upper Reportable Limit: 200 mg/dL. BEDSIDE Gluc POC 255 mg/dL 70 - 99 11/17 ND 2Interpretive [facility] GLUCOSE [place] Data: Medical TESTING Center Upper Reportable Limit: 200 mg/dL. BEDSIDE Comment1 Notify 11/17 [facility] GLUCOSE RN/MD [facility] Center CHEMISTRY Troponin-T null 0.000 - 11/17 Normal [facility] 0.100 [facility] CHEMISTRY Troponin-I null 0.00 - 11/17 Normal [facility] 0.40 [facility] CHEMISTRY Total CK 52 unit/L 12 - 191 11/17 Normal [facility] CHEMISTRY eGFR 109 11/17 NA 4Result Comment: The eGFR is calculated using the CKD-EPI formula. In most young, healthy individuals the eGFR will be > 90 mL/min/1.73m2. The eGFR declines with age. An eGFR of 60-89 may be normal in [facility] mL/min/1.7 some populations, particularly the elderly, for whom the CKD-EPI formula has not been extensively validated. Use of the eGFR is not recommended in the following populations: [place] [address] Center Individuals with unstable creatinine concentrations, including patients and those with serious co-morbid conditions. Patients with extremes in muscle mass or diet. The data above are obtained from the National Kidney Disease Education Program (NKDEP) which additionally recommends that when the eGFR is used in patients with extremes of body mass index for purposes of drug dosing, the eGFR should be multiplied by the estimated BMI. CHEMISTRY Calcium Lvl 7.7 mg/dL 8.5 - 10.5 11/17 LOW [facility] CHEMISTRY AGAP 16.2 meq/L 10.0 - 11/17 Normal [place] 20.0 Medical Center CHEMISTRY Chloride Lvl 100 meq/L 95 - 109 11/17 Normal [facility] CHEMISTRY Potassium 4.2 meq/L 3.5 - 5.1 11/17 Normal [facility] CHEMISTRY Sodium Lvl 134 meq/L 135 - 145 11/17 LOW [facility] Center CHEMISTRY CO2 22 meq/L 24 - 32 11/17 LOW [facility] Center CHEMISTRY Creatinine 0.6 mg/dL 0.5 - 1.4 11/17 Normal [facility] CHEMISTRY BUN 4 mg/dL 7 - 22 11/17 [facility] CHEMISTRY Glucose Lvl 237 mg/dL 70 - 99 11/17 HI 6Interpretive Data: Adult reference range values reflect the clinical guidelines of the [place] [employer]. Medical Center CHEMISTRY Magnesium 1.4 mg/dL 1.8 - 2.4 11/17 LOW [facility] Center CHEMISTRY Phosphorus 3.4 mg/dL 2.5 - 4.5 11/17 Normal [facility] HEMATOLOGY Segs 60.3 % 45.0 - 11/17 Normal [facility] 75.0 [facility] HEMATOLOGY Monocytes 9.0 % 2.0 - 12.0 11/17 Normal [facility] HEMATOLOGY Lymphocytes 27.8 % 20.0 - 11/17 Normal [facility] 40.0 /2012 [facility] HEMATOLOGY Eosinophils 2.1 % 0.0 - 4.0 11/17 Normal [facility] HEMATOLOGY Lymphocytes 2.3 K/CMM 1.0 - 5.5 11/17 Normal [place] # /2012 [facility] HEMATOLOGY Eosinophils 0.2 K/CMM 0.0 - 0.5 11/17 Normal [facility] HEMATOLOGY Basophils 0.8 % 0.0 - 1.0 11/17 Normal [facility] HEMATOLOGY Segs-Bands # 5.1 K/CMM 1.5 - 8.1 11/17 Normal [facility] HEMATOLOGY Basophils # 0.1 K/CMM 0.0 - 0.2 03/14 Normal [facility] HEMATOLOGY Monocytes # 0.8 K/CMM 0.0 - 0.8 11/17 Normal [facility] HEMATOLOGY Microcyte 1+ None Seen 11/17 ABN Medical *ABN* Center (11/17/2012 04:33:00) HEMATOLOGY INR 1.09 0.85 - 11/17 Normal 8Interpretive Data: RECOMMENDED RANGES FOR PROTIME INR: [facility] 1. 2.0-3.0 for most medical and surgical thromboembolic states. Medical 2.5-3.5 for artificial heart valves and recurrent embolism. Center INR SHOULD BE USED ONLY FOR PATIENTS ON STABLE ANTICOAGULANT THERAPY. HEMATOLOGY PT 14.3 s 12.0 - 11/17 Normal [facility] 14.7 [facility] HEMATOLOGY PTT 31.8 s 22.9 - 11/17 Normal 9Interpretive [facility] 35.8 /2012 Data: Heparin [facility] Range: 57 - 92 Seconds HEMATOLOGY Platelet 177 K/CMM 133 - 450 11/17 Normal [facility] HEMATOLOGY MPV 9.5 fL 7.4 - 10.4 11/17 Normal [facility] HEMATOLOGY MCH 24.5 pg 27.0 - 11/17 LOW [facility] 31.0 /2012 [facility] HEMATOLOGY RDW 18.9 % 11.5 - 11/17 HI [facility] 14.5 /2012 [facility] HEMATOLOGY MCHC 32.3 g/dL 32.0 - 11/17 Normal [facility] 36.0 /2012 [facility] HEMATOLOGY MCV 75.9 fL 81.0 - 11/17 [facility] 99.0 /2012 [facility] HEMATOLOGY RBC 3.67 M/CMM 4.20 - 11/17 [facility] 5.40 /2012 [facility] HEMATOLOGY WBC 8.4 K/CMM 3.7 - 10.4 11/17 Normal [facility] HEMATOLOGY Hct 27.9 % 36.0 - 11/17 [facility] 48.0 /2012 [facility] HEMATOLOGY Hgb 9.0 g/dL 12.0 - 11/17 [facility] 16.0 /2012 [facility] CHEMISTRY Troponin-T null 0.000 - 11/17 Normal [facility] 0.100 /2012 [facility] CHEMISTRY Troponin-I null 0.00 - 11/17 Normal [facility] 0.40 [facility] CHEMISTRY Total CK 76 unit/L 12 - 191 11/17 Normal [facility] CHEMISTRY CK MB Index 0.8 0.0 - 2.5 11/17 Normal [facility] CHEMISTRY CK MB 0.6 ng/mL 0.5 - 3.6 11/17 Normal [facility] BEDSIDE Gluc POC 305 mg/dL 70 - 99 11/17 [place] 3Interpretive [facility] GLUCOSE [facility] Data: Medical [facility] Center Upper Reportable Limit: 200 mg/dL. BEDSIDE Comment1 Notify 11/17 NA [facility] GLUCOSE RN/MD Medical [facility] Center CHEMISTRY Magnesium 1.4 mg/dL 1.8 - 2.4 11/16 LOW [facility] Lvl [facility] CHEMISTRY Total CK 27 unit/L 12 - 191 11/16 Normal [facility] CHEMISTRY Troponin-T null 0.000 - 11/16 Normal [facility] 0.100 [facility] CHEMISTRY Troponin-I null 0.00 - 11/16 Normal [facility] 0.40 [facility] CHEMISTRY B/C Ratio 6 6 - 25 11/16 Normal [facility] CHEMISTRY A/G Ratio 1.0 0.7 - 1.6 11/16 Normal [facility] CHEMISTRY AGAP 18.6 meq/L 10.0 - 11/16 Normal [facility] 20.0 [facility] CHEMISTRY Globulin 3.5 g/dL 2.0 - 4.0 11/16 Normal [facility] CHEMISTRY eGFR 67 11/16 NA 5Result Comment: The eGFR is calculated using the CKD-EPI formula. In most young, healthy individuals the eGFR will be > 90 mL/min/1.73m2. The eGFR declines with age. An eGFR of 60-89 may be normal in [facility] mL/min/1.7 /2012 some populations, particularly the elderly, for whom the CKD-EPI formula has not been extensively validated. Use of the eGFR is not recommended in the following populations: [place] [address] Center Individuals with unstable creatinine concentrations, including patients and those with serious co-morbid conditions. Patients with extremes in muscle mass or diet. The data above are obtained from the National Kidney Disease Education Program (NKDEP) which additionally recommends that when the eGFR is used in patients with extremes of body mass index for purposes of drug dosing, the eGFR should be multiplied by the estimated BMI. CHEMISTRY Albumin Lvl 3.4 g/dL 3.5 - 5.0 11/16 LOW [facility] CHEMISTRY Alk Phos 88 unit/L 39 - 136 11/16 Normal [facility] Center CHEMISTRY Glucose Lvl 256 mg/dL 70 - 99 11/16 HI 7Interpretive Data: Adult reference range values reflect the clinical guidelines of the [place] [employer]. Medical Center CHEMISTRY BUN 6 mg/dL 7 - 22 11/16 LOW [facility] CHEMISTRY Sodium Lvl 136 meq/L 135 - 145 11/16 Normal [facility] CHEMISTRY Chloride Lvl 99 meq/L 95 - 109 11/16 Normal [facility] CHEMISTRY Creatinine 1.0 mg/dL 0.5 - 1.4 11/16 Normal [facility] Center CHEMISTRY Potassium 3.6 meq/L 3.5 - 5.1 11/16 Normal [facility] Center CHEMISTRY CO2 22 meq/L 24 - 32 11/16 LOW [facility] Center CHEMISTRY Calcium Lvl 8.8 mg/dL 8.5 - 10.5 11/16 Normal [facility] CHEMISTRY Bili Total 0.6 mg/dL 0.2 - 1.3 11/16 Normal [facility] CHEMISTRY Total 6.9 g/dL 6.4 - 8.4 11/16 Normal [facility] Center CHEMISTRY AST 52 unit/L 0 - 37 11/16 HI [facility] Center CHEMISTRY ALT 52 unit/L 0 - 65 11/16 Normal [facility] CHEMISTRY Phosphorus 1.6 mg/dL 2.5 - 4.5 11/16 LOW [facility] HEMATOLOGY Lymphocytes 16.8 % 20.0 - 11/16 LOW [facility] 40.0 [facility] Center HEMATOLOGY Segs 72.3 % 45.0 - 11/16 Normal [facility] 75.0 [facility] Center HEMATOLOGY Large Plt Slight None Seen 11/16 [facility] Medical *ABN* Center (11/16/2012 13:17:00) HEMATOLOGY Elliptocyte Slight None Seen 11/16 [facility] Medical *ABN* Center (11/16/2012 13:17:00) HEMATOLOGY Polychrom Slight None Seen 11/16 Normal Medical (11/16/2012 13:17:00) Center HEMATOLOGY Microcyte 1+ None Seen 11/16 [facility] *ABN* Center (11/16/2012 13:17:00) HEMATOLOGY Basophils # 0.1 K/CMM 0.0 - 0.2 11/16 Normal [facility] HEMATOLOGY Hypochrom Slight None Seen 11/16 Normal Medical (11/16/2012 13:17:00) Center HEMATOLOGY Anisocyte 1+ None Seen 11/16 ABN [facility] *ABN* Center (11/16/2012 13:17:00) HEMATOLOGY Schistocyte Occasional 11/16 NA [facility] HEMATOLOGY Monocytes 8.6 % 2.0 - 12.0 11/16 Normal [facility] HEMATOLOGY Eosinophils 1.5 % 0.0 - 4.0 11/16 Normal [facility] HEMATOLOGY Monocytes # 1.1 K/CMM 0.0 - 0.8 11/16 [facility] HEMATOLOGY Segs-Bands # 9.7 K/CMM 1.5 - 8.1 11/16 [facility] HEMATOLOGY Eosinophils 0.2 K/CMM 0.0 - 0.5 11/16 Normal [facility] HEMATOLOGY Lymphocytes 2.2 K/CMM 1.0 - 5.5 11/16 Normal [facility] HEMATOLOGY Basophils 0.8 % 0.0 - 1.0 11/16 Normal [facility] HEMATOLOGY Hgb 10.8 g/dL 12.0 - 11/16 [facility] 16.0 [facility] HEMATOLOGY RBC 4.29 M/CMM 4.20 - 11/16 [facility] 5.40 [facility] Center HEMATOLOGY WBC 13.3 K/CMM 3.7 - 10.4 11/16 [facility] HEMATOLOGY RDW 18.0 % 11.5 - 03 [facility] 14.5 [facility] HEMATOLOGY Hct 32.4 % 36.0 - 11/16 [facility] 48.0 [facility] HEMATOLOGY MCHC 33.3 g/dL 32.0 - 11/16 Normal [facility] 36.0 [facility] HEMATOLOGY MCV 75.4 fL 81.0 - 11/16 [facility] 99.0 [facility] HEMATOLOGY MCH 25.1 pg 27.0 - 11/16 [facility] 31. Medical Center HEMATOLOGY Platelet 230 K/CMM 133 - 450 11/16 Normal [facility] Center HEMATOLOGY MPV 9.9 fL 7.4 - 10.4 11/16 Normal [facility] BEDSIDE Comment1 Notify 11/14 NA Fei GLUCOSE RN/ /2012 Medical TESTING Center BEDSIDE Gluc POC 266 mg/dL 70 - 99 11/14 HI 2Interpretive [facility] GLUCOSE Lifsc Data: Medical TESTING Center Upper Reportable Limit: 200 mg/dL. BEDSIDE Comment1 Notify 11/14 NA Fei GLUCOSE RN/ /2012 [facility] Center BEDSIDE Gluc POC 140 mg/dL 70 - 99 11/14 HI 3Interpretive [facility] GLUCOSE Lifsc Data: Medical TESTING Center Upper Reportable Limit: 200 mg/dL. BEDSIDE Comment1 Notify 11/14 NA [facility] GLUCOSE RN/ Medical TESTING Center BEDSIDE Gluc POC 201 mg/dL 70 - 99 11/14 HI 4Interpretive [facility] GLUCOSE Lifsc Data: Medical TESTING Center Upper Reportable Limit: 200 mg/dL. CHEMISTRY A/G Ratio 0.9 0.7 - 1.6 11/14 Normal [facility] CHEMISTRY AST 41 unit/L 0 - 37 11/14 HI [facility] Center CHEMISTRY eGFR 104 11/14 NA 6Result Comment: The eGFR is calculated using the CKD-EPI formula. In most young, healthy individuals the eGFR will be > 90 mL/min/1.73m2. The eGFR declines with age. An eGFR of 60-89 may be normal in [facility] mL/min/1.7 /2012 some populations, particularly the elderly, for whom the CKD-EPI formula has not been extensively validated. Use of the eGFR is not recommended in the following populations: [place] [address] Center Individuals with unstable creatinine concentrations, including patients and those with serious co-morbid conditions. Patients with extremes in muscle mass or diet. The data above are obtained from the National Kidney Disease Education Program (NKDEP) which additionally recommends that when the eGFR is used in patients with extremes of body mass index for purposes of drug dosing, the eGFR should be multiplied by the estimated BMI. CHEMISTRY Albumin Lvl 2.9 g/dL 3.5 - 5.0 11/14 LOW [facility] Center CHEMISTRY Alk Phos 84 unit/L 39 - 136 11/14 Normal [facility] CHEMISTRY BUN 3 mg/dL 7 - 22 11/14 LOW [facility] CHEMISTRY Creatinine 0.7 mg/dL 0.5 - 1.4 11/14 Normal [facility] CHEMISTRY Sodium Lvl 136 meq/L 135 - 145 11/14 Normal [facility] Center CHEMISTRY Total 6.3 g/dL 6.4 - 8.4 11/14 LOW [facility] CHEMISTRY ALT 51 unit/L 0 - 65 11/14 Normal [facility] CHEMISTRY Potassium 3.7 meq/L 3.5 - 5.1 11/14 Normal [facility] CHEMISTRY Chloride Lvl 101 meq/L 95 - 109 11/14 Normal [facility] CHEMISTRY Glucose Lvl 210 mg/dL 70 - 99 11/14 HI 9Interpretive Data: Adult reference range values reflect the clinical guidelines of the [place] [employer]. Medical Center CHEMISTRY AGAP 15.7 meq/L 10.0 - 11/14 Normal [facility] 20.0 [facility] Center CHEMISTRY B/C Ratio 4 6 - 25 11/14 LOW [facility] Center CHEMISTRY Globulin 3.4 g/dL 2.0 - 4.0 11/14 Normal [facility] Center CHEMISTRY CO2 23 meq/L 24 - 32 11/14 LOW [facility] CHEMISTRY Bili Total 0.4 mg/dL 0.2 - 1.3 11/14 Normal [facility] Center CHEMISTRY Calcium Lvl 8.5 mg/dL 8.5 - 10.5 11/14 Normal Medical Center CHEMISTRY Phosphorus 3.6 mg/dL 2.5 - 4.5 11/14 Normal [facility] CHEMISTRY Magnesium 1.5 mg/dL 1.8 - 2.4 11/14 LOW [facility] CHEMISTRY Ca Norm mgdL 3.52 mg/dL 4.65 - 11/14 LOW [facility] 01.23 Medical Center CHEMISTRY Ca Ion mgdL 3.32 mg/dL 4.65 - 11/14 CRIT [facility] 5. Medical Center CHEMISTRY Ca Ion 0.83 1.16 - 11/14 CRIT 15Result [place] mMol/L 1.30 Comment: Medical Critical Center Result(s) called to Arlin Rose at 11/14/2012 00:23:56 CDT_ by_tvs. Read back OK. CHEMISTRY Ca Norm 0.88 1.16 - 11/14 CRIT [place] mMol/L 1.30 [facility] HEMATOLOGY Platelet 221 K/CMM 133 - 450 11/14 Normal [facility] HEMATOLOGY RDW 19.0 % 11.5 - 11/14 [facility] [place] 14.5 /2012 [facility] HEMATOLOGY MCHC 32.4 g/dL 32.0 - 11/14 Normal [place] 36.0 /2012 [facility] HEMATOLOGY MCV 75.5 fL 81.0 - 11/14 LOW [place] 99.0 /2012 [facility] HEMATOLOGY Hct 35.5 % 36.0 - 11/14 LOW [place] 48.0 /2012 [facility] HEMATOLOGY Hgb 11.5 g/dL 12.0 - 11/14 LOW [place] 16.0 /2012 [facility] HEMATOLOGY MCH 24.5 pg 27.0 - 11/14 LOW [place] 31.0 /2012 [facility] HEMATOLOGY MPV 9.1 fL 7.4 - 10.4 11/14 Normal [facility] HEMATOLOGY RBC 4.70 M/CMM 4.20 - 11/14 Normal [place] 5.40 /2012 [facility] HEMATOLOGY WBC 8.6 K/CMM 3.7 - 10.4 11/14 Normal [facility] HEMATOLOGY Segs 53.3 % 45.0 - 11/14 Normal [place] 75.0 /2012 [facility] HEMATOLOGY Microcyte 1+ None Seen 11/14 ABN Medical *ABN* Center (11/13/2012 23:45:00) HEMATOLOGY Basophils # 0.1 K/CMM 0.0 - 0.2 11/14 Normal [facility] HEMATOLOGY Eosinophils 0.2 K/CMM 0.0 - 0.5 11/14 Normal [place] # /2012 [facility] HEMATOLOGY Monocytes # 0.9 K/CMM 0.0 - 0.8 11/14 HI [facility] HEMATOLOGY Lymphocytes 2.9 K/CMM 1.0 - 5.5 11/14 Normal [place] [facility] HEMATOLOGY Monocytes 10.3 % 2.0 - 12.0 11/14 Normal [facility] HEMATOLOGY Lymphocytes 33.6 % 20.0 - 11/14 Normal [place] 40.0 [facility] HEMATOLOGY Segs-Bands # 4.6 K/CMM 1.5 - 8.1 11/14 Normal [facility] HEMATOLOGY Basophils 0.7 % 0.0 - 1.0 11/14 Normal [facility] HEMATOLOGY Eosinophils 2.1 % 0.0 - 4.0 11/14 Normal [facility] CHEMISTRY Lipase Lvl 43 unit/L 73 - 393 11/13 LOW [facility] CHEMISTRY Amylase Lvl 14 unit/L 25 - 115 11/13 LOW [facility] CHEMISTRY A/G Ratio 0.8 0.7 - 1.6 11/13 Normal [facility] CHEMISTRY AST 56 unit/L 0 - 37 11/13 HI [facility] CHEMISTRY Alk Phos 67 unit/L 39 - 136 11/13 Normal [facility] CHEMISTRY Globulin 2.9 g/dL 2.0 - 4.0 11/13 Normal [facility] CHEMISTRY Total 5.3 g/dL 6.4 - 8.4 11/13 LOW [facility] CHEMISTRY Albumin Lvl 2.4 g/dL 3.5 - 5.0 11/13 LOW [facility] CHEMISTRY ALT 41 unit/L 0 - 65 11/13 Normal [facility] CHEMISTRY Bili 0.3 mg/dL 0.0 - 1.0 11/13 Normal [facility] CHEMISTRY Bili Direct 0.1 mg/dL 0.0 - 0.3 11/13 Normal [facility]2012 [facility] CHEMISTRY Bili Total 0.4 mg/dL 0.2 - 1.3 11/13 Normal [facility] CHEMISTRY eGFR 137 11/13 NA 7Result Comment: The eGFR is calculated using the CKD-EPI formula. In most young, healthy individuals the eGFR will be > 90 mL/min/1.73m2. The eGFR declines with age. An eGFR of 60-89 may be normal in [facility] mL/min/1.7 /2012 some populations, particularly the elderly, for whom the CKD-EPI formula has not been extensively validated. Use of the eGFR is not recommended in the following populations: Medical [facility] Individuals with unstable creatinine concentrations, including patients and those with serious co-morbid conditions. Patients with extremes in muscle mass or diet. The data above are obtained from the National Kidney Disease Education Program (NKDEP) which additionally recommends that when the eGFR is used in patients with extremes of body mass index for purposes of drug dosing, the eGFR should be multiplied by the estimated BMI. CHEMISTRY AGAP 17.3 meq/L 10.0 - 11/13 Normal [facility] 20.0 Medical Center CHEMISTRY Calcium Lvl 6.7 mg/dL 8.5 - 10.5 11/13 CRIT 13Result Comment: Medical Critical Center Result(s) called to _hansel nixonleonard at _11/13/2012 06:59:47 CDT bylg. Read back OK. CHEMISTRY CO2 17 meq/L 24 - 32 11/13 LOW [facility] Center CHEMISTRY Chloride Lvl 111 meq/L 95 - 109 11/13 HI Medical Center CHEMISTRY Potassium 3.3 meq/L 3.5 - 5.1 11/13 LOW 5Result [facility] Comment: Medical Specimen Center Slightly Hemolyzed. CHEMISTRY Sodium Lvl 142 meq/L 135 - 145 11/13 Normal [facility] Center CHEMISTRY Creatinine 0.3 mg/dL 0.5 - 1.4 11/13 LOW [facility] CHEMISTRY BUN 3 mg/dL 7 - 22 11/13 [facility] Medical Center CHEMISTRY Glucose Lvl 104 mg/dL 70 - 99 11/13 HI 10Interpretive Data: Adult reference range values reflect the clinical guidelines of the [place] [employer]. Medical Center CHEMISTRY Magnesium 1.3 mg/dL 1.8 - 2.4 11/13 [facility] L[facility] Center CHEMISTRY Phosphorus 2.8 mg/dL 2.5 - 4.5 11/13 Normal [facility] CHEMISTRY Ca Ion 1.01 1.16 - 11/13 [facility] mMol/L 1. Medical Center CHEMISTRY Ca Norm 1.07 1.16 - 11/13 [facility] mMol/L 1. Medical Center CHEMISTRY Ca Norm mgdL 4.28 mg/dL 4.65 - 11/13 [facility] 5. Medical Center CHEMISTRY Ca Ion mgdL 4.04 mg/dL 4.65 - 11/13 [facility] 5. Medical Center HEMATOLOGY MCV 78.6 fL 81.0 - 11/13 [facility] 99.0 /2012 [facility] HEMATOLOGY MPV 9.1 fL 7.4 - 10.4 03 Normal Medical [place] HEMATOLOGY MCHC 31.1 g/dL 32.0 - 03 [facility] [place] 36.0 /2012 Medical [place] HEMATOLOGY MCH 24.4 pg 27.0 - 11/13 [facility] [place] 31.0 /2012 Medical Center HEMATOLOGY Hct 29.4 % 36.0 - 11/13 [facility] [place] 48.0 /2012 [facility] HEMATOLOGY RDW 19.1 % 11.5 - 03 [facility] [place] 14.5 /2012 [facility] HEMATOLOGY Platelet 192 K/CMM 133 - 450 03 Normal [facility] HEMATOLOGY Hgb 9.1 g/dL 12.0 - 03 [facility] 16.0 [facility] HEMATOLOGY RBC 3.74 M/CMM 4.20 - 11/13 [facility] 5.40 /2012 [facility] HEMATOLOGY WBC 6.8 K/CMM 3.7 - 10.4 11/13 Normal [facility] HEMATOLOGY Plt Morph Normal 11/13 Normal Medical (11/13/2012 05:00:00) Center HEMATOLOGY Atypical 0.0 % <=0.0 11/13 [facility] Lymphs [facility] HEMATOLOGY RBC Morph Normal 11/13 Normal Medical (11/13/2012 05:00:00) Center HEMATOLOGY Eosinophils 2.0 % 0.0 - 4.0 11/13 Normal [facility] Center HEMATOLOGY Bands 0.0 % 0.0 - 11.0 11/13 Normal [facility] HEMATOLOGY Segs 51.0 % 45.0 - 03 [facility] [place] 75.0 [facility] Center HEMATOLOGY Eosinophils 0.1 K/CMM 0.0 - 0.5 11/13 Normal [place] # /2012 [facility] Center HEMATOLOGY Segs-Bands # 3.5 K/CMM 1.5 - 8.1 11/13 Normal [facility] HEMATOLOGY Monocytes 5.0 % 2.0 - 12.0 11/13 Normal [facility] Center HEMATOLOGY Lymphocytes 42.0 % 20.0 - 03/10 [facility] [place] 40.0 Medical Center HEMATOLOGY Monocytes # 0.3 K/CMM 0.0 - 0.8 03/10 Normal [facility] HEMATOLOGY Lymphocytes 2.9 K/CMM 1.0 - 5.5 11/13 Normal [facility] # /2012 [facility] INFECTIOUS C difficile Negative 1 Negative 11/13 Normal 1Interpretive Data: iCharts illum[employer]ene Clostridium difficile assay utilizes loop-mediated isothermal DNA amplification (LAMP) technology to detect a 204 bp region of the tcdA gene within the PaLoc gene [facility] segment present in all known toxigenic C. difficile strains. [facility] (11/12/2012 21:54:26) [place] The assay utilizes FDA cleared IVD reagents. Performance characteristics have been verified by the [facility] within the [facility]. The [facility] is authorized under the Clinical Laboratory Improvement Amendment of 1988 (CLIA-88) to perform high complexity testing. CHEMISTRY Total CK 25 unit/L 12 - 191 11/12 Normal [facility] CHEMISTRY Troponin-I null 0.00 - 11/12 Normal [facility] 0.40 [facility] CHEMISTRY eGFR 88 11/12 NA 8Result Comment: The eGFR is calculated using the CKD-EPI formula. In most young, healthy individuals the eGFR will be > 90 mL/min/1.73m2. The eGFR declines with age. An eGFR of 60-89 may be normal in [facility] mL/min/1.7 some populations, particularly the elderly, for whom the CKD-EPI formula has not been extensively validated. Use of the eGFR is not recommended in the following populations: [address] Individuals with unstable creatinine concentrations, including patients and those with serious co-morbid conditions. Patients with extremes in muscle mass or diet. The data above are obtained from the National Kidney Disease Education Program (NKDEP) which additionally recommends that when the eGFR is used in patients with extremes of body mass index for purposes of drug dosing, the eGFR should be multiplied by the estimated BMI. CHEMISTRY AGAP 13.7 meq/L 10.0 - 11/12 Normal [facility] 20.0 [facility] CHEMISTRY Calcium Lvl 8.5 mg/dL 8.5 - 10.5 11/12 Normal [facility] CHEMISTRY CO2 25 meq/L 24 - 32 11/12 Normal [facility] CHEMISTRY Potassium 3.7 meq/L 3.5 - 5.1 11/12 Normal [facility] Lvl [facility] CHEMISTRY Sodium Lvl 138 meq/L 135 - 145 11/12 Normal [facility] [place] CHEMISTRY Chloride Lvl 103 meq/L 95 - 109 11/12 Normal [facility] CHEMISTRY Creatinine 0.8 mg/dL 0.5 - 1.4 11/12 Normal [facility] CHEMISTRY BUN 5 mg/dL 7 - 22 11/12 LOW [facility] Center CHEMISTRY Glucose Lvl 40 mg/dL 70 - 99 11/12 CRIT 12Interpretive Data: Adult reference range values reflect the clinical guidelines of the [place] [employer]. Medical Center CHEMISTRY Ca Norm mgdL 4.20 mg/dL 4.65 - 11/12 LOW [facility] 5. [facility] Center CHEMISTRY Ca Norm 1.05 1.16 - 11/12 [facility] [place] mMol/L 1. Medical Center CHEMISTRY Ca Ion mgdL 4.00 mg/dL 4.65 - 11/12 LOW [facility] . [facility] CHEMISTRY Ca Ion 1.00 1.16 - 11/12 LOW [facility] mMol/L 1. Medical Center CHEMISTRY Magnesium 1.9 mg/dL 1.8 - 2.4 11/12 Normal [facility] CHEMISTRY Phosphorus 3.2 mg/dL 2.5 - 4.5 11/12 Normal [facility] HEMATOLOGY MCHC 32.0 g/dL 32.0 - 11/12 Normal [facility] 36.0 /2012 Medical [place] HEMATOLOGY MCH 24.1 pg 27.0 - 11/12 [facility] 31.0 [facility] HEMATOLOGY MCV 75.3 fL 81.0 - 03 [facility] 99.0 Medical Center HEMATOLOGY WBC 9.2 K/CMM 3.7 - 10.4 11/12 Normal [facility] HEMATOLOGY Platelet 233 K/CMM 133 - 450 03 Normal [facility] HEMATOLOGY MPV 9.1 fL 7.4 - 10.4 11/12 Normal Medical [place] HEMATOLOGY RDW 19.0 % 11.5 - 03 HI [facility] 14.5 /2012 Medical Center HEMATOLOGY RBC 4.19 M/CMM 4.20 - 03 LOW [facility] 5.40 /2012 Medical [place] HEMATOLOGY Hgb 10.1 g/dL 12.0 - 03 [facility] 16.0 [facility] HEMATOLOGY Hct 31.6 % 36.0 - 03 LOW [place] 48.0 /2012 [facility] HEMATOLOGY Hypochrom Slight None Seen 11/12 Normal [facility] (11/12/2012 00:19:00) Center HEMATOLOGY Large Plt Slight None Seen 11/12 [facility] Medical *[facility]* [place] (11/12/2012 00:19:00) HEMATOLOGY Atypical 0.0 % <=0.0 11/12 Normal [facility] Lymphs [facility] HEMATOLOGY Basophils 1.0 % 0.0 - 1.0 11/12 Normal [facility] HEMATOLOGY Lymphocytes 39.0 % 20.0 - 03 Normal [facility] 40.0 [facility] HEMATOLOGY Bands 0.0 % 0.0 - 11.0 11/12 Normal [facility] HEMATOLOGY Eosinophils 2.0 % 0.0 - 4.0 11/12 Normal [facility] HEMATOLOGY Monocytes 6.0 % 2.0 - 12.0 11/12 Normal [facility] HEMATOLOGY Segs 52.0 % 45.0 - 11/12 [facility] 75.0 [facility] HEMATOLOGY Basophils # 0.1 K/CMM 0.0 - 0.2 11/12 Normal [facility] HEMATOLOGY Monocytes # 0.6 K/CMM 0.0 - 0.8 11/12 Normal [facility] HEMATOLOGY Lymphocytes 3.6 K/CMM 1.0 - 5.5 11/12 Normal [facility] HEMATOLOGY Segs-Bands # 4.8 K/CMM 1.5 - 8.1 11/12 Normal [facility] HEMATOLOGY Eosinophils 0.2 K/CMM 0.0 - 0.5 11/12 Normal [facility] HEMATOLOGY Microcyte 1+ None Seen 11/11 [facility] *[facility]* [place] (11/11/2012 03:41:00) HEMATOLOGY Basophils # 0.1 K/CMM 0.0 - 0.2 11/11 Normal [facility] HEMATOLOGY Basophils 0.7 % 0.0 - 1.0 11/11 Normal [facility] HEMATOLOGY Microcyte 1+ None Seen 11/09 [facility] *[facility]* [place] (11/09/2012 05:12:00) URINALYSIS UA pH 5.0 5.0 - 8.0 11/08 Normal [facility] URINALYSIS UA Protein 20 mg/dL Negative 11/08 [facility] [place] (11/07/2012 20:54:00) URINALYSIS UA Turbidity Slight Clear 11/08 [facility] [place] (11/07/2012 20:54:00) URINALYSIS UA Spec Grav 1.010 <=1.030 11/08 Normal [facility] URINALYSIS UA Color Yellow Yellow 11/08 NA [facility] *NA* [place] (11/07/2012 20:54:00) URINALYSIS UA Bacteria Moderate /HPF None Seen 11/08 [facility] [place] (11/07/2012 20:54:00) URINALYSIS UA Mucus Few /LPF None Seen 11/08 [facility] [place] (11/07/2012 20:54:00) URINALYSIS UA WBC null 0 - 5 11/08 [facility] URINALYSIS UA RBC 4 /HPF 0 - 2 11/08 [facility] 2012 [facility] URINALYSIS UA Sq Epi Moderate /LPF Few 11/08 [facility] [place] (11/07/2012 20:54:00) URINALYSIS UA Leuk Est Large Negative 11/08 [facility] [place] (11/07/2012 20:54:00) URINALYSIS UA Blood Trace Negative 11/08 [facility] [place] (11/07/2012 20:54:00) URINALYSIS UA Nitrite Negative Negative 11/08 Normal [facility] (11/07/2012 20:54:00) Center URINALYSIS UA Ketones 40 mg/dL Negative 11/08 [facility] [place] (11/07/2012 20:54:00) URINALYSIS UA Bili Negative Negative 11/08 [facility] [place] (11/07/2012 20:54:00) URINALYSIS Micro? Performed 11/08 NA [facility] [place] (11/07/2012 20:54:00) URINALYSIS UA <=1.0 0.1 - 1.0 11/08 NA [facility] Urobilinogen mg/dL /2012 Medical
*NA*< Center br/>(11/07 20:54:00) <sup> </sup> URINALYSIS UA Glucose >=1000mg/d 11/08 [facility] URINALYSIS UA Hyal Cast 37 /LPF 0 - 2 11/08 [facility] URINALYSIS UA Ketones 40 mg/dL Negative 11/07 ABN Medical *ABN* Center (11/07/2012 06:24:57) CHEMISTRY Hgb A1C 8.2 % 11/07 NA 14Interpretive Data: HbA1C% eAG( mg/dL) Interpretation 6.0 126 Very good control [facility] 6.5 140 Very good control [place] 7.0 154 Good Control 7.5 169 Good Control 8.0 183 Marginal Control, take action to lower 8.5 197 Marginal Control, take action to lower 9.0 212 Poor Control, take action to lower 9.5 226 Poor Control, take action to lower 10.0 240 Poor Control, take action to lower CHEMISTRY Ketone 2.20 <=0.27 11/06 [facility] Quantitative mmol/L [facility] CHEMISTRY U Osmolality 207 300 - 800 11/06 LOW [facility] mOsm/kg [facility] CHEMISTRY POC A %FIO2 21.0 % 18.0 - 11/06 Normal [facility] 100.0 [facility] CHEMISTRY POC A LA 0.9 mMol/L 0.5 - 2.2 11/06 Normal [facility] CHEMISTRY POC A Glu 281 mg/dL 70 - 99 11/06 HI [facility] CHEMISTRY POC A Temp 37.0 Abby 11/06 NA [facility] CHEMISTRY POC A Source ART 11/06 NA [facility] CHEMISTRY POC A pH 7.45 7.35 - 11/06 Normal [facility] 7.45 [facility] CHEMISTRY POC A HCO3 24 mMol/L 22 - 26 11/06 Normal [facility] CHEMISTRY POC A PCO2 35 mm[Hg] 35 - 45 11/06 Normal [facility] CHEMISTRY POC A PO2 85 mm[Hg] 80 - 100 11/06 Normal [facility] CHEMISTRY POC A BE 0 mMol/L -2-2 - 2 11/06 Normal [facility] CHEMISTRY POC A O2 Sat 97.0 % 95.0 - 11/06 Normal [facility] 100.0 [facility] CHEMISTRY POC A Na 123 meq/L 135 - 145 11/06 LOW [facility] CHEMISTRY POC A Hct 31.0 % 36.0 - 11/06 LOW [facility] 48.0 /2012 [facility] CHEMISTRY POC A Ca Ion 1.11 1.16 - 11/06 LOW [facility] mMol/L 1.30 [facility] CHEMISTRY POC A K 3.7 meq/L 3.5 - 5.1 11/06 Normal [facility] CHEMISTRY POC A BE -4 mMol/L -2-2 - 2 11/06 LOW [facility] CHEMISTRY POC A HCO3 20 mMol/L 22 - 26 11/06 LOW [facility] CHEMISTRY POC A Source ART 11/06 NA [facility] CHEMISTRY POC A Temp 37.0 Abby 11/06 NA [facility] CHEMISTRY POC A pH 7.42 7.35 - 11/06 Normal [facility] 7.45 [facility] CHEMISTRY POC A PO2 81 mm[Hg] 80 - 100 11/06 Normal [facility] CHEMISTRY POC A O2 Sat 96.0 % 95.0 - 11/06 Normal [facility] 100.0 [facility] CHEMISTRY POC A PCO2 31 mm[Hg] 35 - 45 11/06 LOW [facility] CHEMISTRY POC A %FIO2 21.0 % 18.0 - 11/06 Normal [facility] 100.0 [facility] Microbiolo Culture: 11/06 [facility] gy Urine [facility] CHEMISTRY Troponin-I null 0.00 - 11/06 Normal [facility] 0.40 /2012 [facility] CHEMISTRY Troponin-T null 0.000 - 11/06 Normal [facility] 0.100 /2012 [facility] CHEMISTRY Total CK 48 unit/L 12 - 191 11/06 Normal [facility] URINALYSIS UA <=1.0 0.1 - 1.0 11/06 [facility] Urobilinogen mg/dL /2012 Medical
*NA*< Center br/>(11/06 03:15:40) <sup> </sup> URINALYSIS UA Leuk Est Large Negative 11/06 ABN Medical *ABN* Center (11/06/2012 03:15:40) URINALYSIS UA Sq Epi Moderate /LPF Few 11/06 [facility] *ABN* Center (11/06/2012 03:15:40) URINALYSIS UA Mucus Few /LPF None Seen 11/06 NA [facility] *NA* [place] (11/06/2012 03:15:40) URINALYSIS UA Nitrite Negative Negative 11/06 Normal [facility] (11/06/2012 03:15:40) Center URINALYSIS UA Bacteria Occasional /HPF None Seen 11/06 [facility] Medical *NA* [place] (11/06/2012 03:15:40) URINALYSIS UA WBC 67 /HPF 0 - 5 11/06 [facility] URINALYSIS UA Blood Negative Negative 11/06 Normal [facility] (11/06/2012 03:15:40) Center URINALYSIS UA Bili Negative Negative 11/06 [facility] *NA* [place] (11/06/2012 03:15:40) URINALYSIS UA Ketones 60 mg/dL Negative 11/06 [facility] *ABN* [place] (11/06/2012 03:15:40) URINALYSIS UA pH 5.0 5.0 - 8.0 11/06 Normal [facility] URINALYSIS UA Glucose >=1000 mg/dL Negative 11/06 [facility] *ABN* [place] (11/06/2012 03:15:40) URINALYSIS UA Spec Grav 1.014 <=1.030 11/06 Normal [facility] URINALYSIS UA Protein Negative mg/dL Negative 11/06 Normal [facility] (11/06/2012 03:15:40) Center URINALYSIS UA Turbidity Slight Clear 11/06 [facility] *ABN* [place] (11/06/2012 03:15:40) URINALYSIS UA Color Yellow Yellow 11/06 NA [facility] *NA* [place] (11/06/2012 03:15:40) CHEMISTRY Troponin-I 0.02 ng/mL 0.00 - 11/06 Normal [facility] 0. [facility] CHEMISTRY Total CK 30 unit/L 12 - 191 11/06 Normal [facility] CHEMISTRY Troponin-T null 0.000 - 11/06 Normal [facility] 0.100 [facility] CHEMISTRY Ketone 3.00 <=0.27 11/06 HI [facility] Quantitative mmol/L /2012 [facility] CHEMISTRY Lipase Lvl 89 unit/L 73 - 393 11/06 Normal [facility] CHEMISTRY Globulin 4.3 g/dL 2.0 - 4.0 11/06 [facility] CHEMISTRY A/G Ratio 0.9 0.7 - 1.6 11/06 Normal [facility] CHEMISTRY B/C Ratio 7 6 - 25 11/06 Normal [facility] CHEMISTRY Albumin Lvl 3.7 g/dL 3.5 - 5.0 11/06 Normal [facility] CHEMISTRY Total 8.0 g/dL 6.4 - 8.4 11/06 Normal [facility] Protein [facility] CHEMISTRY ALT 62 unit/L 0 - 65 11/06 Normal [facility] CHEMISTRY Alk Phos 119 unit/L 39 - 136 11/06 Normal [facility] CHEMISTRY Bili Total 0.5 mg/dL 0.2 - 1.3 11/06 Normal [facility] CHEMISTRY AST 44 unit/L 0 - 37 11/06 HI [facility] HEMATOLOGY Polychrom Slight None Seen 11/06 Normal [facility] (11/05/2012 20:40:00) [place] HEMATOLOGY Hypochrom Slight None Seen 11/06 Normal [facility] (11/05/2012 20:40:00) [place] HEMATOLOGY Bands 1.0 % 0.0 - 11.0 11/06 Normal [facility] HEMATOLOGY Anisocyte 1+ None Seen 11/06 [facility] *ABN* [place] (11/05/2012 20:40:00) HEMATOLOGY Atypical 0.0 % <=0.0 11/06 Normal [facility] Lymphs [facility] HEMATOLOGY Macrocyte 1+ None Seen 11/06 [facility] *[facility]* [place] (11/05/2012 20:40:00) HEMATOLOGY Plt Morph Normal 11/06 Normal [facility] (11/05/2012 20:40:00) Center HEMATOLOGY INR 0.98 0.85 - 11/06 Normal 16Interpretive Data: RECOMMENDED RANGES FOR PROTIME INR: [facility] 1. 2.0-3.0 for most medical and surgical thromboembolic states. Medical 2.5-3.5 for artificial heart valves and recurrent embolism. Center INR SHOULD BE USED ONLY FOR PATIENTS ON STABLE ANTICOAGULANT THERAPY. HEMATOLOGY PT 13.2 s 12.0 - 11/06 Normal [facility] 14.7 Medical Center HEMATOLOGY PTT 26.4 s 22.9 - 11/06 Normal 17Interpretiv [facility] 35.8 /2012 e Data: [facility] Therapeutic Range: 57 - 92 Seconds BEDSIDE Gluc POC null - 99 11/01 CRIT 3Interpretive [facility] GLUCOSE [facility] Data: Medical TESTING Center Upper Reportable Limit: 200 mg/dL. BEDSIDE Comment1 Notify 11/01 NA [facility] GLUCOSE RN/ Medical TESTING Center BEDSIDE Gluc POC 237 mg/dL 10/31 HI 4Interpretive [facility] GLUCOSE [facility] Data: Medical TESTING Center Upper Reportable Limit: 200 mg/dL. BEDSIDE Gluc POC 357 mg/dL 10/31 HI 5Interpretive [facility] GLUCOSE [facility] Data: Medical TESTING Center Upper Reportable Limit: 200 mg/dL. BEDSIDE Comment1 Notify 10/31 NA [facility] GLUCOSE RN/ /2012 Medical TESTING Center CHEMISTRY Phosphorus 4.2 mg/dL 2.5 - 4.5 10/31 Normal [facility] Center CHEMISTRY Ca Norm mgdL 4.64 mg/dL 4.65 - 10/31 LOW [place] 5. [facility] CHEMISTRY Ca Ion mgdL 4.44 mg/dL 4.65 - 10/31 LOW [facility] 5.20 [facility] CHEMISTRY Ca Norm 1.16 1.16 - 10/31 Normal [place] mMol/L 1.30 [facility] Center CHEMISTRY Ca Ion 1.11 1.16 - 10/31 LOW [place] mMol/L 1.30 [facility] Center CHEMISTRY AGAP 16.9 meq/L 10.0 - 10/31 Normal [facility] 20.0 [facility] Center CHEMISTRY eGFR 67 10/31 NA 7Result Comment: The eGFR is calculated using the CKD-EPI formula. In most young, healthy individuals the eGFR will be > 90 mL/min/1.73m2. The eGFR declines with age. An eGFR of 60-89 may be normal in [facility] mL/min/1.7 some populations, particularly the elderly, for whom the CKD-EPI formula has not been extensively validated. Use of the eGFR is not recommended in the following populations: Medical [facility] Individuals with unstable creatinine concentrations, including patients and those with serious co-morbid conditions. Patients with extremes in muscle mass or diet. The data above are obtained from the National Kidney Disease Education Program (NKDEP) which additionally recommends that when the eGFR is used in patients with extremes of body mass index for purposes of drug dosing, the eGFR should be multiplied by the estimated BMI. CHEMISTRY Creatinine 1.0 mg/dL 0.5 - 1.4 10/31 Normal [facility] CHEMISTRY Sodium Lvl 133 meq/L 135 - 145 10/31 [facility] CHEMISTRY Calcium Lvl 8.3 mg/dL 8.5 - 10.5 10/31 [facility] CHEMISTRY Potassium 3.9 meq/L 3.5 - 5.1 10/31 Normal [facility] CHEMISTRY Chloride Lvl 94 meq/L 95 - 109 10/31 [facility] CHEMISTRY CO2 26 meq/L 24 - 32 10/31 [facility] CHEMISTRY BUN 8 mg/dL 7 - 22 10/31 Normal [facility] CHEMISTRY Glucose Lvl 75 mg/dL 70 - 99 10/31 Normal 10Interpretive Data: Adult reference range values reflect the clinical guidelines of the [place] [employer]. [facility] CHEMISTRY Magnesium 1.9 mg/dL 1.8 - 2.4 10/31 Normal [facility] HEMATOLOGY MPV 9.4 fL 7.4 - 10.4 10/31 Normal [facility] HEMATOLOGY Hgb 9.7 g/dL 12.0 - 10/31 [facility] 16.0 [facility] HEMATOLOGY RBC 4.06 M/CMM 4.20 - 10/31 [facility] 5.40 [facility] HEMATOLOGY MCV 74.3 fL 81.0 - 10/31 [facility] 99.0 [facility] HEMATOLOGY Hct 30.2 % 36.0 - 10/31 [facility] 48.0 [facility] HEMATOLOGY MCHC 32.2 g/dL 32.0 - 10/31 [facility] 36.0 [facility] HEMATOLOGY MCH 23.9 pg 27.0 - 10/31 [facility] 31.0 [facility] HEMATOLOGY Platelet 199 K/CMM 133 - 450 10/31 Normal [facility] HEMATOLOGY RDW 17.5 % 11.5 - 10/31 [facility] 14.5 [facility] HEMATOLOGY WBC 9.4 K/CMM 3.7 - 10.4 10/31 Normal [facility] HEMATOLOGY Lymphocytes 2.7 K/CMM 1.0 - 5.5 10/31 Normal [facility] HEMATOLOGY Basophils 0.6 % 0.0 - 1.0 10/31 Normal [facility] HEMATOLOGY Segs-Bands # 5.2 K/CMM 1.5 - 8.1 10/31 Normal [facility] HEMATOLOGY Microcyte 1+ None Seen 10/31 [facility] (10/31/2012 04:00:00) HEMATOLOGY Monocytes # 1.1 K/CMM 0.0 - 0.8 10/31 [facility] HEMATOLOGY Eosinophils 0.3 K/CMM 0.0 - 0.5 10/31 Normal [facility] HEMATOLOGY Basophils # 0.1 K/CMM 0.0 - 0.2 10/31 Normal [facility] HEMATOLOGY Segs 55.2 % 45.0 - 10/31 [facility] 75.0 [facility] HEMATOLOGY Monocytes 11.8 % 2.0 - 12.0 10/31 Normal [facility] HEMATOLOGY Lymphocytes 28.9 % 20.0 - 10/31 Normal [facility] 40.0 [facility] HEMATOLOGY Eosinophils 3.5 % 0.0 - 4.0 10/31 Normal [facility] BEDSIDE Comment1 Notify 10/31 NA [facility] GLUCOSE RN/MD Medical TESTING Center CHEMISTRY Ca Norm mgdL 4.92 mg/dL 4.65 - 10/30 Normal [facility] 01.23 [facility] CHEMISTRY Ca Ion mgdL 4.76 mg/dL 4.65 - 10/30 Normal [facility] 01.23 [facility] CHEMISTRY Ca Norm 1.23 1.16 - 10/30 Normal [place] mMol/L . [facility] CHEMISTRY Ca Ion 1.19 1.16 - 10/30 Normal [place] mMol/L . [facility] CHEMISTRY Phosphorus 3.8 mg/dL 2.5 - 4.5 10/30 Normal [facility] CHEMISTRY Magnesium 1.9 mg/dL 1.8 - 2.4 10/30 Normal [facility] CHEMISTRY eGFR 88 10/30 NA 8Result Comment: The eGFR is calculated using the CKD-EPI formula. In most young, healthy individuals the eGFR will be > 90 mL/min/1.73m2. The eGFR declines with age. An eGFR of 60-89 may be normal in [facility] mL/min/1.7 some populations, particularly the elderly, for whom the CKD-EPI formula has not been extensively validated. Use of the eGFR is not recommended in the following populations: [address] Individuals with unstable creatinine concentrations, including patients and those with serious co-morbid conditions. Patients with extremes in muscle mass or diet. The data above are obtained from the National Kidney Disease Education Program (NKDEP) which additionally recommends that when the eGFR is used in patients with extremes of body mass index for purposes of drug dosing, the eGFR should be multiplied by the estimated BMI. CHEMISTRY Glucose Lvl 91 mg/dL 70 - 99 10/30 Normal 11Interpretive Data: Adult reference range values reflect the clinical guidelines of the [place] [employer]. [facility] CHEMISTRY Creatinine 0.8 mg/dL 0.5 - 1.4 10/30 Normal [facility] CHEMISTRY BUN 6 mg/dL 7 - 22 10/30 LOW [facility] CHEMISTRY Sodium Lvl 132 meq/L 135 - 145 10/30 [facility] CHEMISTRY Calcium Lvl 8.5 mg/dL 8.5 - 10.5 10/30 Normal [facility] CHEMISTRY CO2 29 meq/L 24 - 32 10/30 Normal [facility] CHEMISTRY Chloride Lvl 92 meq/L 95 - 109 10/30 LOW [facility] CHEMISTRY Potassium 3.8 meq/L 3.5 - 5.1 10/30 Normal [facility] CHEMISTRY AGAP 14.8 meq/L 10.0 - 10/30 Normal [facility] 20. [facility] HEMATOLOGY Platelet 245 K/CMM 133 - 450 10/30 Normal [facility] HEMATOLOGY MPV 9.4 fL 7.4 - 10.4 10/30 Normal [facility] HEMATOLOGY Hct 33.1 % 36.0 - 02/24 LOW [facility] 48.0 /2012 [facility] HEMATOLOGY RBC 4.47 M/CMM 4.20 - 10/30 Normal [facility] 5.40 /2012 [facility] HEMATOLOGY WBC 11.0 K/CMM 3.7 - 10.4 10/30 [facility] HEMATOLOGY Hgb 10.6 g/dL 12.0 - 10/30 [facility] [place] 16.0 /2012 [facility] HEMATOLOGY MCHC 31.9 g/dL 32.0 - 10/30 [facility] 36.0 /2012 [facility] HEMATOLOGY MCV 74.1 fL 81.0 - 10/30 [facility] 99.0 /2012 [facility] HEMATOLOGY MCH 23.7 pg 27.0 - 10/30 [facility] 31.0 /2012 [facility] HEMATOLOGY RDW 16.9 % 11.5 - 10/30 [facility] 14.5 [facility] HEMATOLOGY PTT 28.1 s 22.9 - 10/30 Normal 25Interpretiv [facility] 35.8 /2012 e Data: [facility] Center Therapeutic Range: 57 - 92 Seconds HEMATOLOGY PT 13.7 s 12.0 - 10/30 Normal [facility] 14.7 /2012 [facility] HEMATOLOGY INR 1.03 0.85 - 10/30 Normal 22Interpretive Data: RECOMMENDED RANGES FOR PROTIME INR: [facility] 1. 2.0-3.0 for most medical and surgical thromboembolic states. Medical 2.5-3.5 for artificial heart valves and recurrent embolism. Center INR SHOULD BE USED ONLY FOR PATIENTS ON STABLE ANTICOAGULANT THERAPY. HEMATOLOGY Segs-Bands # 7.5 K/CMM 1.5 - 8.1 10/30 Normal [facility] HEMATOLOGY Basophils 0.4 % 0.0 - 1.0 10/30 Normal [facility] HEMATOLOGY Monocytes # 1.1 K/CMM 0.0 - 0.8 10/30 [facility] HEMATOLOGY Lymphocytes 2.1 K/CMM 1.0 - 5.5 10/30 Normal [facility] HEMATOLOGY Microcyte 1+ None Seen 10/30 ABN Medical *ABN* Center (10/30/2012 00:20:00) HEMATOLOGY Eosinophils 0.2 K/CMM 0.0 - 0.5 10/30 Normal [facility] # /2012 [facility] HEMATOLOGY Segs 68.3 % 45.0 - 02/24 Normal [place] 75.0 [facility] HEMATOLOGY Lymphocytes 18.9 % 20.0 - 10/30 LOW [place] 40.0 [facility] HEMATOLOGY Monocytes 10.3 % 2.0 - 12.0 10/30 Normal [facility] HEMATOLOGY Eosinophils 2.1 % 0.0 - 4.0 10/30 Normal [facility] CHEMISTRY Magnesium 2.1 mg/dL 1.8 - 2.4 10/29 Normal [facility] CHEMISTRY Phosphorus 4.1 mg/dL 2.5 - 4.5 10/29 Normal [facility] CHEMISTRY Ca Ion mgdL 3.96 mg/dL 4.65 - 10/29 [facility] 5. [facility] CHEMISTRY Ca Norm 1.01 1. - 10/29 [facility] mMol/L 1. [facility] CHEMISTRY Ca Ion 0.99 1.16 - 10/29 [facility] mMol/L . [facility] CHEMISTRY Ca Norm mgdL 4.04 mg/dL 4.65 - 10/29 [facility] . [facility] CHEMISTRY eGFR 104 10/29 NA 9Result Comment: The eGFR is calculated using the CKD-EPI formula. In most young, healthy individuals the eGFR will be > 90 mL/min/1.73m2. The eGFR declines with age. An eGFR of 60-89 may be normal in [facility] mL/min/1. some populations, particularly the elderly, for whom the CKD-EPI formula has not been extensively validated. Use of the eGFR is not recommended in the following populations: [address] Individuals with unstable creatinine concentrations, including patients and those with serious co-morbid conditions. Patients with extremes in muscle mass or diet. The data above are obtained from the National Kidney Disease Education Program (NKDEP) which additionally recommends that when the eGFR is used in patients with extremes of body mass index for purposes of drug dosing, the eGFR should be multiplied by the estimated BMI. CHEMISTRY Creatinine 0.7 mg/dL 0.5 - 1.4 10/29 Normal [facility] CHEMISTRY BUN 3 mg/dL 7 - 22 10/29 LOW [facility] CHEMISTRY Calcium Lvl 8.9 mg/dL 8.5 - 10.5 10/29 Normal [facility] CHEMISTRY Glucose Lvl 90 mg/dL 70 - 99 10/29 Normal 12Interpretive Data: Adult reference range values reflect the clinical guidelines of the [place] [employer]. Medical Center CHEMISTRY Chloride Lvl 99 meq/L 95 - 109 10/29 Normal [facility] Center CHEMISTRY Potassium 4.4 meq/L 3.5 - 5.1 10/29 Normal [facility] Lvl [facility] CHEMISTRY CO2 27 meq/L 24 - 32 10/29 [facility] CHEMISTRY Sodium Lvl 139 meq/L 135 - 145 10/29 Normal [facility] CHEMISTRY AGAP 17.4 meq/L 10.0 - 10/29 Normal [facility] 20.0 [facility] HEMATOLOGY PTT 23.7 s 22.9 - 10/29 Normal 26Interpretiv [facility] 35.8 /2012 e Data: [facility] Therapeutic Range: 57 - 92 Seconds HEMATOLOGY PT 13.4 s 12.0 - 10/29 Normal [facility] 14.7 [facility] HEMATOLOGY INR 1.00 0.85 - 10/29 Normal 23Interpretive Data: RECOMMENDED RANGES FOR PROTIME INR: [facility] . 2.0-3.0 for most medical and surgical thromboembolic states. Medical 2.5-3.5 for artificial heart valves and recurrent embolism. Center INR SHOULD BE USED ONLY FOR PATIENTS ON STABLE ANTICOAGULANT THERAPY. HEMATOLOGY RDW 17.1 % 11.5 - 10/29 HI [facility] 14.5 [facility] HEMATOLOGY MCH 23.8 pg 27.0 - 10/29 LOW [facility] 31.0 /2012 [facility] HEMATOLOGY MCHC 32.2 g/dL 32.0 - 10/29 Normal [facility] 36.0 [facility] HEMATOLOGY Hct 33.6 % 36.0 - 10/29 LOW [facility] 48.0 /2012 [facility] HEMATOLOGY MCV 74.0 fL 81.0 - 10/29 LOW [facility] 99.0 [facility] HEMATOLOGY Platelet 233 K/CMM 133 - 450 10/29 Normal [facility] HEMATOLOGY MPV 9.9 fL 7.4 - 10.4 10/29 Normal [facility] HEMATOLOGY RBC 4.54 M/CMM 4.20 - 10/29 Normal [facility] 5.40 /2012 [facility] HEMATOLOGY Hgb 10.8 g/dL 12.0 - 10/29 LOW [facility] 16.0 /2013 [facility] HEMATOLOGY WBC 9.7 K/CMM 3.7 - 10.4 10/29 Normal [facility] HEMATOLOGY Lymphocytes 2.6 K/CMM 1.0 - 5.5 10/29 Normal [facility] /2012 [facility] HEMATOLOGY Basophils 0.7 % 0.0 - 1.0 10/29 Normal [facility] HEMATOLOGY Segs-Bands # 6.0 K/CMM 1.5 - 8.1 10/29 Normal [facility] HEMATOLOGY Monocytes # 0.7 K/CMM 0.0 - 0.8 10/29 Normal [facility] HEMATOLOGY Eosinophils 0.3 K/CMM 0.0 - 0.5 10/29 Normal [facility] HEMATOLOGY Basophils # 0.1 K/CMM 0.0 - 0.2 10/29 Normal [facility] HEMATOLOGY Microcyte 1+ None Seen 10/29 ABN Medical *ABN* Center (10/29/2012 00:56:00) HEMATOLOGY Segs 61.5 % 45.0 - 10/29 Normal [facility] 75.0 [facility] HEMATOLOGY Lymphocytes 26.8 % 20.0 - 10/29 Normal [facility] 40.0 [facility] HEMATOLOGY Monocytes 7.6 % 2.0 - 12.0 10/29 Normal [facility] HEMATOLOGY Eosinophils 3.4 % 0.0 - 4.0 10/29 Normal [facility] CHEMISTRY Amylase Lvl 27 unit/L 25 - 115 10/28 Normal [facility] CHEMISTRY Lipase Lvl 58 unit/L 73 - 393 10/28 LOW [facility] CHEMISTRY Bili 0.2 mg/dL 0.0 - 1.0 10/28 Normal [facility] CHEMISTRY Globulin 3.4 g/dL 2.0 - 4.0 10/28 Normal [facility] CHEMISTRY A/G Ratio 0.8 0.7 - 1.6 10/28 Normal [facility] CHEMISTRY AST 24 unit/L 0 - 37 10/28 Normal [facility] CHEMISTRY Bili Total 0.3 mg/dL 0.2 - 1.3 10/28 Normal [facility] CHEMISTRY Total 6.2 g/dL 6.4 - 8.4 10/28 LOW [facility] CHEMISTRY ALT 23 unit/L 0 - 65 10/28 Normal [facility] CHEMISTRY Albumin Lvl 2.8 g/dL 3.5 - 5.0 10/28 LOW [facility] CHEMISTRY Alk Phos 85 unit/L 39 - 136 10/28 Normal [facility] CHEMISTRY Bili Direct 0.1 mg/dL 0.0 - 0.3 10/28 Normal [facility] HEMATOLOGY PTT 23.9 s 22.9 - 10/28 Normal 27Interpretiv [facility] 35.8 e Data: [facility] Therapeutic Range: 57 - 92 Seconds HEMATOLOGY PT 13.5 s 12.0 - 10/28 Normal [facility] 14.7 [facility] HEMATOLOGY INR 1.01 0.85 - 10/28 Normal 24Interpretive Data: RECOMMENDED RANGES FOR PROTIME INR: [facility] 1. 2.0-3.0 for most medical and surgical thromboembolic states. Medical 2.5-3.5 for artificial heart valves and recurrent embolism. Center INR SHOULD BE USED ONLY FOR PATIENTS ON STABLE ANTICOAGULANT THERAPY. VIRAL - Influ B Negative 6 Negative 10/28 Normal 6Interpretive [facility] Data: Due Medical (10/27/2012 18:02:02) to the low Center sensitivity of this test a negative result does not exclude influenza virus infection. A diagnosis of influenza should be considered based on a patient's clinical presentation and empiric antiviral treatment should be considered, if indicated. If more conclusive testing is desired, follow-up confirmatory testing with either viral culture or PCR is warranted. VIRAL - Influ A Negative Negative 10/28 Normal [facility] SEROLOGY Medical (10/27/2012 18:02:02) Center CHEMISTRY Vitamin D, 16 ng/mL 30 - 100 10/25 LOW 13Interpretive Data: Reference range is based on recommendations in the Endocrine [facility] 25-[place], Total /2013 Society Clinical Practice Guideline (J Clin Endocrinol Metab Medical 2011;96:7795-7778) Center CHEMISTRY Hgb A1C 8.4 % 10/25 NA 21Interpretive Data: HbA1C% eAG( mg/dL) Interpretation [facility] 6.0 126 Very good control Medical 6.5 140 Very good control Center 7.0 154 Good Control 7.5 169 Good Control 8.0 183 Marginal Control, take action to lower 8.5 197 Marginal Control, take action to lower 9.0 212 Poor Control, take action to lower 9.5 226 Poor Control, take action to lower 10.0 240 Poor Control, take action to lower CHEMISTRY LDL 87 mg/dL 0 - 129 10/25 Normal [facility] CHEMISTRY HDL 35 mg/dL >=35 10/25 Normal [facility] CHEMISTRY Trig 101 mg/dL 0 - 200 10/25 Normal [facility] CHEMISTRY Chol 142 mg/dL 120 - 200 10/25 Normal [facility] CHEMISTRY CHD Risk 4.06 3.90 - 10/25 Normal [facility] 5.80 [facility] CHEMISTRY Troponin-I 5.43 ng/mL 0.00 - 10/25 CRIT 18Result [facility] 0.40 Comment: Medical Critical Center Result(s) called to Jelani Rasmussen at 10/25/2012 00:47:48 TRUCK LEASING MANAGER by RM. Read back OK. CHEMISTRY Troponin-T 0.693 0.000 - 10/25 CRIT 15Result [facility] ng/mL 0.100 Comment: Medical Critical Center Result(s) called to daisy otoole at 10/25/2012 01:18:09 TRUCK LEASING MANAGER by tac. Read back OK. HEMATOLOGY Basophils # 0.2 K/CMM 0.0 - 0.2 10/25 Normal [facility] HEMATOLOGY Plt Morph Normal 10/25 Normal [facility] (10/25/2012 00:15:00) Center CHEMISTRY ALT 15 unit/L 0 - 65 10/24 Normal [facility] CHEMISTRY Albumin Lvl 2.7 g/dL 3.5 - 5.0 10/24 LOW [facility] CHEMISTRY Bili Total 0.5 mg/dL 0.2 - 1.3 10/24 Normal [facility] CHEMISTRY Alk Phos 83 unit/L 39 - 136 10/24 Normal [facility] CHEMISTRY Bili Direct 0.2 mg/dL 0.0 - 0.3 10/24 Normal [facility] CHEMISTRY Total 5.8 g/dL 6.4 - 8.4 10/24 LOW [facility] CHEMISTRY AST 41 unit/L 0 - 37 10/24 HI [facility] CHEMISTRY Bili 0.3 mg/dL 0.0 - 1.0 02/18 Normal [facility] CHEMISTRY Globulin 3.1 g/dL 2.0 - 4.0 10/24 Normal [facility] CHEMISTRY A/G Ratio 0.9 0.7 - 1.6 10/24 Normal [facility] CHEMISTRY POC A Mode NC-3LPM 10/24 NA [facility] CHEMISTRY POC A HCO3 19 mMol/L 22 - 26 10/24 LOW [facility] CHEMISTRY POC A O2 Sat 98.0 % 95.0 - 10/24 Normal [place] 100.0 [facility] CHEMISTRY POC A BE -6 mMol/L -2-2 - 2 10/24 LOW [facility] CHEMISTRY POC A PO2 103 mm[Hg] 80 - 100 10/24 [facility] CHEMISTRY POC A pH 7.35 7.35 - 10/24 LOW [facility] 7.45 [facility] CHEMISTRY POC A PCO2 34 mm[Hg] 35 - 45 10/24 LOW [facility] CHEMISTRY POC A Temp 37.0 Abby 10/24 NA [facility] CHEMISTRY POC A Source ART 10/24 NA [facility] CHEMISTRY Troponin-T 0.688 0.000 - 10/24 CRIT 16Result [place] ng/mL 0.100 /2012 Comment: Medical Critical Center Result(s) called to Maribel Bustos at 10/24/2012 13:23:46 TRUCK LEASING MANAGER by lwb . Read back OK. CHEMISTRY Troponin-I 7.61 ng/mL 0.00 - 10/24 CRIT 19Result [place] 0.40 /2012 Comment: Medical Critical Center Result(s) called to mariana bustos at _ 10/24/2012 13:37:22 CSTby_lss. Read back OK. CHEMISTRY Total CK 150 unit/L 12 - 191 10/24 Normal [facility] CHEMISTRY Lactic Acid 0.7 mMol/L 0.5 - 2.2 10/24 Normal [facility] Lvl [facility] CHEMISTRY CK MB Index 11.0 0.0 - 2.5 10/24 HI [facility] CHEMISTRY CK MB 16.5 ng/mL 0.5 - 3.6 10/24 [facility] CHEMISTRY Troponin-T 0.750 0.000 - 10/24 CRIT 17Result [place] ng/mL 0.100 /2012 Comment: [facility] Result(s) called to Lyn King at 10/24/2012 09:52:38 [employer]ASING [employer]NAGER by lwb . Read back OK. CHEMISTRY Troponin-I 7.60 ng/mL 0.00 - 10/24 CRIT 20Result [place] 0.40 /2012 Comment: [facility] Result(s) called to romero beltre at _10/24/2012 09:50:18 TRUCK LEASING MANAGER by_lss. Read back OK. CHEMISTRY Total CK 170 unit/L - 10/24 Normal 14Result Comment: [facility] Spec[facility] Moderately Hemolyzed. CHEMISTRY CK MB Index 10.5 0.0 - 2.5 10/24 HI [facility] CHEMISTRY CK MB 17.8 ng/mL 0.5 - 3.6 10/24 HI [facility] CHEMISTRY Ketone 0.07 <=0.27 10/24 Normal [facility] Quantitative mmol/L [facility] CHEMISTRY Ketone 2.61 <=0.27 10/24 [facility] Quantitative mmol/L [facility] CHEMISTRY CK MB 30.9 ng/mL 0.5 - 3.6 10/24 HI [facility] CHEMISTRY CK MB Index 12.2 0.0 - 2.5 10/24 [facility] CHEMISTRY Total CK 254 unit/L - 10/24 HI [facility] CHEMISTRY Lactic Acid 0.6 mMol/L 0.5 - 2.2 10/24 Normal [facility] Lvl [facility] CHEMISTRY POC V O2 Sat 56.0 % 40.0 - 10/24 Normal [place] 70.0 [facility] CHEMISTRY POC V HCO3 22 mmol/L 22 - 26 10/24 Normal [facility] CHEMISTRY POC V PO2 32 mm[Hg] 20 - 49 10/24 Normal [facility] CHEMISTRY POC V BE -4 mmol/L -2-2 - 2 10/24 LOW [facility] CHEMISTRY POC V PCO2 41 mm[Hg] 38 - 52 10/24 Normal [facility] CHEMISTRY POC V pH 7.33 7.28 - 10/24 Normal [facility] 7.42 [facility] CHEMISTRY POC V Temp 37.0 Abby 10/24 NA [facility] CHEMISTRY POC V Source MARK 10/24 NA [facility] [place] CHEMISTRY Ketone 0.93 <=0.27 10/24 HI [place] Quantitative mmol/L /2012 [facility] Microbiolo Culture: 10/24 [facility] gy Urine [facility] CHEMISTRY Lactic Acid 0.6 mMol/L 0.5 - 2.2 10/23 Normal [facility] Lvl [facility] Microbiolo Culture: 10/23 [facility] gy Blood [facility] CHEMISTRY POC A Source ART 10/23 NA [facility] [place] CHEMISTRY POC A PO2 144 mm[Hg] 80 - 100 10/23 HI [facility] [place] CHEMISTRY POC A Temp 37.0 Abby 10/23 NA [facility] CHEMISTRY POC A pH 7.35 7.35 - 10/23 LOW [facility] 7.45 [facility] CHEMISTRY POC A Glu 159 mg/dL 70 - 99 10/23 HI [facility] [place] CHEMISTRY POC A BE -5 mMol/L -2-2 - 2 10/23 LOW [facility] CHEMISTRY POC A O2 Sat 99.0 % 95.0 - 10/23 Normal [facility] 100.0 [facility] CHEMISTRY POC A Hct 35.0 % 36.0 - 10/23 LOW [facility] 48.0 [facility] [place] CHEMISTRY POC A HCO3 20 mMol/L 22 - 26 10/23 LOW [facility] CHEMISTRY POC A PCO2 36 mm[Hg] 35 - 45 10/23 Normal [facility] CHEMISTRY POC A LA 0.6 mMol/L 0.5 - 2.2 10/23 Normal [facility] CHEMISTRY POC A Ca Ion 1.20 1.16 - 10/23 Normal [facility] mMol/L 1.30 [facility] [place] CHEMISTRY POC A Na 133 meq/L 135 - 145 10/23 LOW [facility] CHEMISTRY POC A K 3.8 meq/L 3.5 - 5.1 10/23 Normal [facility] CHEMISTRY A/G Ratio 0.8 0.7 - 1.6 10/23 Normal [facility] CHEMISTRY AST 90 unit/L 0 - 37 10/23 HI [facility] [place] CHEMISTRY Globulin 3.9 g/dL 2.0 - 4.0 10/23 Normal [facility] CHEMISTRY B/C Ratio 16 6 - 25 10/23 Normal [facility] CHEMISTRY Total 7.2 g/dL 6.4 - 8.4 10/23 Normal [facility] CHEMISTRY Bili Total 0.5 mg/dL 0.2 - 1.3 10/23 Normal [facility] CHEMISTRY Albumin Lvl 3.3 g/dL 3.5 - 5.0 10/23 LOW [facility] CHEMISTRY Alk Phos 94 unit/L 39 - 136 10/23 Normal [facility] CHEMISTRY ALT 23 unit/L 0 - 65 10/23 Normal [facility] CHEMISTRY Osmolality 292 280 - 300 10/23 Normal [facility] mOsm/kg [facility] CHEMISTRY Myoglobin 128 ng/mL 25 - 72 10/23 HI [facility] Microbiolo Culture: 10/23 [facility] gy [facility] r Screen BACTERIAL MRSA by PCR Positive 1, 2 10/23 [facility] 2Interpretive Data: Interpretive Data: The [employer] Light[employer] MRSA assay is a qualitative test for the direct detection of nasal colonization with methicillin-resistant Staphylococcus aureus (MRSA) to aid in the prevention and control of MRSA infections in healthcare settings. A positive result does not indicate an infection or require treatment. A negative result does not exclude colonization or infection. Medical *ABN* Center The polymerase chain reaction (PCR) assay detects a proprietary sequence indicative of the integration of the SCCmec cassette into the Staphylococcus aureus chromosome, indicating the presence of MRSA D (10/23/2012 11:37:00) NA. The assay utilizes FDA cleared IVD reagents. Performance characteristics have been verified by the [facility] within the [facility]. The [facility] Labor atory is authorized under the Clinical Laboratory Improvement Amendment of 1988 (CLIA-88) to perform high complexity testing. CHEMISTRY Osmolality 309 280 - 300 10/23 HI [facility] mOsm/kg [facility] CHEMISTRY POC A Hct 37.0 % 36.0 - 10/23 Normal [facility] 48.0 [facility] CHEMISTRY POC A Na 129 meq/L 135 - 145 10/23 LOW [facility] CHEMISTRY POC A LA 1.0 mMol/L 0.5 - 2.2 10/23 Normal [facility] CHEMISTRY POC A K 4.5 meq/L 3.5 - 5.1 10/23 Normal [facility] CHEMISTRY POC A Glu null 70 - 99 10/23 CRIT [facility] CHEMISTRY POC A Ca Ion 1.18 1.16 - 10/23 Normal [facility] mMol/L 1.30 [facility] CHEMISTRY POC A PCO2 30 mm[Hg] 35 - 45 10/23 CRIT [facility] CHEMISTRY POC A PO2 123 mm[Hg] 80 - 100 10/23 HI [facility] CHEMISTRY POC A Temp 37.0 Abby 10/23 NA [facility] CHEMISTRY POC A HCO3 14 mMol/L 22 - 26 10/23 LOW [facility] CHEMISTRY POC A Source ART 10/23 NA [facility] CHEMISTRY POC A pH 7.27 7.35 - 10/23 LOW [facility] 7.45 [facility] CHEMISTRY POC A BE -12 mMol/L -2-2 - 2 10/23 LOW [facility] CHEMISTRY POC A O2 Sat 98.0 % 95.0 - 10/23 Normal [facility] 100.0 [facility] CHEMISTRY Bili Direct 0.4 mg/dL 0.0 - 0.3 10/23 HI [facility] CHEMISTRY Lipase Lvl 54 unit/L 73 - 393 10/23 LOW [facility] CHEMISTRY Amylase Lvl 28 unit/L 25 - 115 10/23 Normal [facility] CHEMISTRY B/C Ratio 10 6 - 25 10/23 Normal [facility] BLOOD BANK Antibody Negative 10/23 Normal [facility] RESULTS [facility] (10/23/2012 01:00:00) Center BLOOD BANK ABO/Rh A POS 10/23 Unknown [facility] RESULTS /2012 [facility] URINALYSIS UA <=1.0 0.1 - 1.0 10/23 NA [facility] Urobilinogen mg/dL /2012 Medical
*NA*< Center br/>(10/23 00:01:00) <sup> </sup> URINALYSIS UA Sq Epi Moderate /LPF Few 10/23 ABN Medical *ABN* [place] (10/23/2012 00:01:00) URINALYSIS UA Leuk Est Negative Negative 10/23 Normal Medical (10/23/2012 00:01:00) Center URINALYSIS UA Nitrite Negative Negative 10/23 Normal Medical (10/23/2012 00:01:00) Center URINALYSIS UA Blood Negative Negative 10/23 Normal Medical (10/23/2012 00:01:00) Center URINALYSIS UA Glucose >=1000 mg/dL Negative 10/23 ABN Medical *ABN* Center (10/23/2012 00:01:00) URINALYSIS UA Protein 10 mg/dL Negative 10/23 ABN Medical *ABN* Center (10/23/2012 00:01:00) URINALYSIS UA pH 5.0 5.0 - 8.0 10/23 Normal [facility] URINALYSIS UA WBC 1 /HPF 0 - 5 10/23 Normal [facility] URINALYSIS UA Bili Negative Negative 10/23 NA Medical *NA* Center (10/23/2012 00:01:00) URINALYSIS UA Ketones >=150 mg/dL Negative 10/23 ABN Medical *ABN* Center (10/23/2012 00:01:00) URINALYSIS UA Spec Grav 1.015 <=1.030 10/23 Normal [facility] URINALYSIS UA Turbidity Clear Clear 10/23 Normal [facility] (10/23/2012 00:01:00) Center URINALYSIS UA Color Light Yellow Yellow 10/23 NA [facility] *NA* Center (10/23/2012 00:01:00) BEDSIDE Gluc POC 265 mg/dL 70 - 99 10/08 HI 1Interpretive [facility] GLUCOSE [facility] Data: Medical TESTING Center Upper Reportable Limit: 200 mg/dL. BEDSIDE Comment1 Notify 10/08 NA [facility] GLUCOSE RN/MD /2012 [facility] BEDSIDE Comment1 Notify 10/08 NA [facility] GLUCOSE RN/MD /2012 [facility] BEDSIDE Gluc POC 204 mg/dL 70 - 99 10/08 HI 2Interpretive [facility] GLUCOSE [facility] Data: Medical TESTING Center Upper Reportable Limit: 200 mg/dL. CHEMISTRY Phosphorus 2.7 mg/dL 2.5 - 4.5 10/08 Normal [facility] CHEMISTRY Magnesium 1.6 mg/dL 1.8 - 2.4 10/08 LOW [facility] Lvl [facility] CHEMISTRY Ca Ion 1.17 1.16 - 10/08 Normal [facility] mMol/L 1. [facility] CHEMISTRY Ca Norm 1.18 1.16 - 10/08 Normal [facility] mMol/L 1. [facility] CHEMISTRY Ca Ion mgdL 4.68 mg/dL 4.65 - 10/08 Normal [facility] 5. [facility] CHEMISTRY Ca Norm mgdL 4.72 mg/dL 4.65 - 10/08 Normal [facility] 5. [facility] CHEMISTRY AGAP 17.6 meq/L 10.0 - 10/08 Normal [facility] 20.0 [facility] CHEMISTRY eGFR 109 10/08 NA 4Result Comment: The eGFR is calculated using the CKD-EPI formula. In most young, healthy individuals the eGFR will be > 90 mL/min/1.73m2. The eGFR declines with age. An eGFR of 60-89 may be normal in [facility] mL/min/1. some populations, particularly the elderly, for whom the CKD-EPI formula has not been extensively validated. Use of the eGFR is not recommended in the following populations: [place] [address] Center Individuals with unstable creatinine concentrations, including patients and those with serious co-morbid conditions. Patients with extremes in muscle mass or diet. The data above are obtained from the National Kidney Disease Education Program (NKDEP) which additionally recommends that when the eGFR is used in patients with extremes of body mass index for purposes of drug dosing, the eGFR should be multiplied by the estimated BMI. CHEMISTRY CO2 24 meq/L 24 - 32 10/08 Normal [facility] CHEMISTRY Calcium Lvl 8.5 mg/dL 8.5 - 10.5 10/08 Normal [facility] CHEMISTRY Potassium 3.6 meq/L 3.5 - 5.1 10/08 Normal [facility] CHEMISTRY Chloride Lvl 96 meq/L 95 - 109 10/08 Normal [facility] CHEMISTRY Creatinine 0.6 mg/dL 0.5 - 1.4 10/08 Normal [facility] CHEMISTRY Sodium Lvl 134 meq/L 135 - 145 10/08 LOW [facility] CHEMISTRY Glucose Lvl 129 mg/dL 70 - 99 10/08 HI 7Interpretive Data: Adult reference range values reflect the clinical guidelines of the [place] [employer]. [facility] CHEMISTRY BUN 4 mg/dL 7 - 22 02/ LOW [facility] HEMATOLOGY Monocytes # 1.1 K/CMM 0.0 - 0.8 02/ HI [facility] HEMATOLOGY Eosinophils 0.3 K/CMM 0.0 - 0.5 02/ Normal [facility] # /2012 [facility] HEMATOLOGY Basophils # 0.1 K/CMM 0.0 - 0.2 02 Normal [facility] HEMATOLOGY Microcyte 1+ None Seen 10/08 ABN Medical *ABN* Center (10/08/2012 03:57:00) HEMATOLOGY Segs 55.7 % 45.0 - 02/ Normal [facility] 75.0 /2012 [facility] HEMATOLOGY Lymphocytes 31.3 % 20.0 - 02/ [facility] 40.0 [facility] HEMATOLOGY Monocytes 10.0 % 2.0 - 12.0 02/ Normal [facility] HEMATOLOGY Eosinophils 2.5 % 0.0 - 4.0 02 Normal [facility] HEMATOLOGY Segs-Bands # 6.1 K/CMM 1.5 - 8.1 02/ Normal [facility] HEMATOLOGY Basophils 0.5 % 0.0 - 1.0 02/ Normal [facility] HEMATOLOGY Lymphocytes 3.4 K/CMM 1.0 - 5.5 02/ Normal [facility] # /2012 [facility] HEMATOLOGY RDW 16.9 % 11.5 - 02/ [facility] 14.5 [facility] HEMATOLOGY Platelet 218 K/CMM 133 - 450 02 Normal [facility] HEMATOLOGY WBC 10.9 K/CMM 3.7 - 10.4 02/ HI [facility] HEMATOLOGY RBC 4.35 M/CMM 4.20 - 02/ Normal [facility] 5.40 /2012 [facility] HEMATOLOGY MPV 9.7 fL 7.4 - 10.4 02/ Normal [facility] HEMATOLOGY Hgb 10.4 g/dL 12.0 - 02/ LOW [facility] 16.0 [facility] HEMATOLOGY Hct 32.7 % 36.0 - 02/ LOW [facility] 48.0 /2012 [facility] HEMATOLOGY MCHC 31.8 g/dL 32.0 - 02/ [facility] 36.0 /2012 [facility] HEMATOLOGY MCV 75.2 fL 81.0 - 10/08 [facility] 99.0 /2012 [facility] HEMATOLOGY MCH 23.9 pg 27.0 - 10/08 [facility] 31.0 /2012 [facility] BEDSIDE Comment1 Notify 10/08 NA [facility] GLUCOSE RN/ [facility] BEDSIDE Gluc POC 247 mg/dL 70 - 99 10/08 HI 3Interpretive [facility] GLUCOSE [facility] Data: [facility] Center Upper Reportable Limit: 200 mg/dL. CHEMISTRY Magnesium 2.1 mg/dL 1.8 - 2.4 10/07 Normal [facility] Lvl /2012 [facility] CHEMISTRY Ca Norm 1.16 1.16 - 10/07 Normal [facility] mMol/L 1. [facility] CHEMISTRY Ca Ion mgdL 4.72 mg/dL 4.65 - 10/07 Normal [facility] 5.20 [facility] CHEMISTRY Ca Norm mgdL 4.64 mg/dL 4.65 - 10/07 LOW [facility] 5.20 [facility] CHEMISTRY Ca Ion 1.18 1.16 - 10/07 Normal [facility] mMol/L 1. [facility] CHEMISTRY Phosphorus 2.6 mg/dL 2.5 - 4.5 10/07 Normal [facility] CHEMISTRY Calcium Lvl 8.1 mg/dL 8.5 - 10.5 10/07 LOW [facility] CHEMISTRY AGAP 19.4 meq/L 10.0 - 10/07 Normal [facility] 20.0 [facility] CHEMISTRY eGFR 116 10/07 NA 5Result Comment: The eGFR is calculated using the CKD-EPI formula. In most young, healthy individuals the eGFR will be > 90 mL/min/1.73m2. The eGFR declines with age. An eGFR of 60-89 may be normal in [facility] mL/min/1.7 /2012 some populations, particularly the elderly, for whom the CKD-EPI formula has not been extensively validated. Use of the eGFR is not recommended in the following populations: [place] [address] [facility] Individuals with unstable creatinine concentrations, including patients and those with serious co-morbid conditions. Patients with extremes in muscle mass or diet. The data above are obtained from the National Kidney Disease Education Program (NKDEP) which additionally recommends that when the eGFR is used in patients with extremes of body mass index for purposes of drug dosing, the eGFR should be multiplied by the estimated BMI. CHEMISTRY BUN 6 mg/dL 7 - 22 10/07 [facility] CHEMISTRY Glucose Lvl 99 mg/dL 70 - 99 10/07 Normal 8Interpretive Data: Adult reference range values reflect the clinical guidelines of the [place] [employer]. [facility] CHEMISTRY Creatinine 0.5 mg/dL 0.5 - 1.4 10/07 Normal [facility] Lvl [facility] CHEMISTRY Potassium 3.4 meq/L 3.5 - 5.1 10/07 [facility] CHEMISTRY Sodium Lvl 135 meq/L 135 - 145 10/07 Normal [facility] CHEMISTRY CO2 24 meq/L 24 - 32 10/07 Normal [facility] CHEMISTRY Chloride Lvl 95 meq/L 95 - 109 10/07 Normal [facility] HEMATOLOGY MCHC 31.8 g/dL 32.0 - 10/07 [facility] 36.0 [facility] HEMATOLOGY MCH 24.1 pg 27.0 - 10/07 [facility] 31.0 /2012 [facility] HEMATOLOGY MCV 75.7 fL 81.0 - 10/07 [facility] 99.0 /2012 [facility] HEMATOLOGY Hct 31.0 % 36.0 - 02 [facility] 48.0 /2012 [facility] HEMATOLOGY Hgb 9.9 g/dL 12.0 - 02 [facility] 16.0 /2012 [facility] HEMATOLOGY MPV 9.1 fL 7.4 - 10.4 10/07 Normal [facility] HEMATOLOGY Platelet 222 K/CMM 133 - 450 10/07 Normal [facility] HEMATOLOGY RDW 16.8 % 11.5 - 02 [facility] 14.5 /2012 [facility] HEMATOLOGY RBC 4.10 M/CMM 4.20 - 02 [facility] 5.40 /2012 [facility] HEMATOLOGY WBC 13.8 K/CMM 3.7 - 10.4 10/07 [facility] HEMATOLOGY Segs-Bands # 9.6 K/CMM 1.5 - 8.1 10/07 [facility] HEMATOLOGY Basophils 0.3 % 0.0 - 1.0 10/07 [facility] HEMATOLOGY Eosinophils 1.0 % 0.0 - 4.0 10/07 [facility] HEMATOLOGY Microcyte 1+ None Seen 10/07 ABN [facility] *ABN* [place] (10/07/2012 03:25:00) HEMATOLOGY Lymphocytes 2.9 K/CMM 1.0 - 5.5 10/07 Normal [facility] /2012 [facility] HEMATOLOGY Eosinophils 0.1 K/CMM 0.0 - 0.5 10/07 Normal [facility] /2012 [facility] HEMATOLOGY Monocytes # 1.2 K/CMM 0.0 - 0.8 10/07 HI [facility] HEMATOLOGY Monocytes 8.8 % 2.0 - 12.0 10/07 Normal [facility] HEMATOLOGY Lymphocytes 20.8 % 20.0 - 02 Normal [facility] 40.0 [facility] HEMATOLOGY Segs 69.1 % 45.0 - 10/07 Normal [facility] 75.0 [facility] URINALYSIS UA Glucose 500mg/dL 10/06 NA [facility] URINALYSIS UA <=1.0 0.1 - 1.0 10/06 [facility] Urobilinogen mg/dL Medical
*NA*< Center br/>(10/06 11:42:00) <sup> </sup> URINALYSIS Micro? Performed 10/06 [facility] [place] (10/06/2012 11:42:00) URINALYSIS UA [place] Yeast Moderate /HPF None Seen 10/06 [facility]* [place] (10/06/2012 11:42:00) URINALYSIS UA RBC 3 /HPF 0 - 2 10/06 [facility] URINALYSIS UA Bacteria Many /HPF None Seen 10/06 [facility] *[facility]* [place] (10/06/2012 11:42:00) URINALYSIS UA WBC 3 /HPF 0 - 5 10/06 Normal [facility] URINALYSIS UA Leuk Est Negative Negative 10/06 Normal [facility] (10/06/2012 11:42:00) Center URINALYSIS UA Nitrite Negative Negative 10/06 Normal [facility] (10/06/2012 11:42:00) Center URINALYSIS UA Sq Epi Many /LPF Few 10/06 ABN [facility] *[facility]* [place] (10/06/2012 11:42:00) URINALYSIS UA Bili Negative Negative 10/06 [facility] [place] (10/06/2012 11:42:00) URINALYSIS UA Blood Negative Negative 10/06 Normal [facility] (10/06/2012 11:42:00) Center URINALYSIS UA pH 5.5 5.0 - 8.0 10/06 Normal [facility]2012 [facility] URINALYSIS UA Protein 20 mg/dL Negative 10/06 [facility]* [place] (10/06/2012 11:42:00) URINALYSIS UA Ketones >=150 mg/dL Negative 10/06 [facility] (10/06/2012 11:42:00) URINALYSIS UA Color Yellow Yellow 10/06 [facility] (10/06/2012 11:42:00) URINALYSIS UA Turbidity Slight Clear 10/06 [facility] (10/06/2012 11:42:00) URINALYSIS UA Spec Grav 1.011 <=1.030 10/06 Normal [facility] URINALYSIS UA Mucus Few /LPF None Seen 10/06 [facility] (10/06/2012 11:42:00) Microbiolo Culture: 10/[address] [facility] [address] [facility] CHEMISTRY Phosphorus 2.5 mg/dL 2.5 - 4.5 10/06 Normal [facility] CHEMISTRY Magnesium 1.5 mg/dL 1.8 - 2.4 10/06 LOW [facility] Lvl [facility] CHEMISTRY eGFR 76 10/06 6Result Comment: The eGFR is calculated using the CKD-EPI formula. In most young, healthy individuals the eGFR will be > 90 mL/min/1.73m2. The eGFR declines with age. An eGFR of 60-89 may be normal in [facility] mL/min/1. some populations, particularly the elderly, for whom the CKD-EPI formula has not been extensively validated. Use of the eGFR is not recommended in the following populations: [place] [address] Center Individuals with unstable creatinine concentrations, including patients and those with serious co-morbid conditions. Patients with extremes in muscle mass or diet. The data above are obtained from the National Kidney Disease Education Program (NKDEP) which additionally recommends that when the eGFR is used in patients with extremes of body mass index for purposes of drug dosing, the eGFR should be multiplied by the estimated BMI. CHEMISTRY Potassium 3.9 meq/L 3.5 - 5.1 10/06 Normal [facility] Lvl [facility] CHEMISTRY Chloride Lvl 97 meq/L 95 - 109 10/06 Normal [facility] CHEMISTRY Calcium Lvl 8.3 mg/dL 8.5 - 10.5 10/06 LOW [facility] CHEMISTRY CO2 22 meq/L 24 - 32 10/06 LOW [facility] CHEMISTRY Glucose Lvl 234 mg/dL 70 - 99 10/06 [place] 9Interpretive Data: Adult reference range values reflect the clinical guidelines of the [place] [employer]. [facility] CHEMISTRY Creatinine 0.9 mg/dL 0.5 - 1.4 10/06 Normal [facility] CHEMISTRY BUN 9 mg/dL 7 - 22 10/06 Normal [facility] CHEMISTRY Sodium Lvl 134 meq/L 135 - 145 10/06 LOW [facility] CHEMISTRY AGAP 18.9 meq/L 10.0 - 10/06 Normal [facility] 20.0 [facility] HEMATOLOGY Segs-Bands # 13.3 K/CMM 1.5 - 8.1 10/06 [facility] HEMATOLOGY Basophils 0.2 % 0.0 - 1.0 10/06 Normal [facility] HEMATOLOGY Eosinophils 0.1 % 0.0 - 4.0 10/06 Normal [facility] HEMATOLOGY Monocytes 6.7 % 2.0 - 12.0 10/06 Normal [facility] HEMATOLOGY Segs 81.7 % 45.0 - 10/06 [facility] 75.0 [facility] HEMATOLOGY Lymphocytes 11.3 % 20.0 - 10/06 [facility] 40.0 [facility] HEMATOLOGY Microcyte 1+ None Seen 10/06 ABN [facility] *ABN* Center (10/06/2012 04:25:00) HEMATOLOGY Monocytes # 1.1 K/CMM 0.0 - 0.8 10/06 [facility] HEMATOLOGY Lymphocytes 1.8 K/CMM 1.0 - 5.5 10/06 Normal [facility] [place] # /2012 [facility] HEMATOLOGY RBC 4.28 M/CMM 4.20 - 10/06 Normal [place] 5.40 /2012 Medical [place] HEMATOLOGY WBC 16.3 K/CMM 3.7 - 10.4 10/06 HI /2012 [facility] HEMATOLOGY Hgb 10.3 g/dL 12.0 - 10/06 LOW [place] 16.0 /2012 [facility] HEMATOLOGY Hct 32.6 % 36.0 - 10/06 LOW [place] 48.0 /2012 [facility] HEMATOLOGY MCH 24.0 pg 27.0 - 10/06 LOW [place] 31.0 /2012 [facility] HEMATOLOGY MCV 76.1 fL 81.0 - 10/06 LOW [place] 99.0 /2012 Medical [place] HEMATOLOGY MCHC 31.5 g/dL 32.0 - 10/06 LOW [place] 36.0 [facility] HEMATOLOGY RDW 17.2 % 11.5 - 10/06 HI [place] 14.5 [facility] HEMATOLOGY Platelet 248 K/CMM 133 - 450 10/06 Normal [facility] HEMATOLOGY MPV 9.5 fL 7.4 - 10.4 10/06 Normal /2012 [facility] CHEMISTRY Ca Norm 1.07 1.16 - 10/05 LOW [place] mMol/L 1. [facility] CHEMISTRY Ca Ion mgdL 4.36 mg/dL 4.65 - 10/05 LOW [place] 5. [facility] CHEMISTRY Ca Norm mgdL 4.28 mg/dL 4.65 - 10/05 LOW [place] 5. [facility] CHEMISTRY Ca Ion 1.09 1.16 - 10/05 LOW [place] mMol/L 1. [facility] HEMATOLOGY Basophils # 0.1 K/CMM 0.0 - 0.2 10/05 Normal [facility] HEMATOLOGY Eosinophils 0.1 K/CMM 0.0 - 0.5 10/05 Normal [place] # /2012 [facility] CHEMISTRY U Preg Negative Negative 10/03 Normal [place] [facility] (10/03/2012 06:31:00) Center BLOOD BANK ABO/Rh A POS 10/03 Unknown [facility] RESULTS /2012 [facility] [facility] BLOOD BANK Antibody Negative 10/03 Normal [facility] RESULTS [facility] (10/03/2012 06:00:00) Center CHEMISTRY Total 7.8 g/dL 6.4 - 8.4 09/23 Normal [facility] CHEMISTRY AST 31 unit/L 0 - 37 09/23 Normal [facility] CHEMISTRY Bili Total 0.3 mg/dL 0.2 - 1.3 09/23 Normal [facility] CHEMISTRY ALT 50 unit/L 0 - 65 09/23 Normal [facility] CHEMISTRY Albumin Lvl 3.6 g/dL 3.5 - 5.0 09/23 Normal [facility] CHEMISTRY Alk Phos 150 unit/L 39 - 136 09/23 HI [facility] CHEMISTRY B/C Ratio 21 6 - 25 09/23 Normal [facility] CHEMISTRY Globulin 4.2 g/dL 2.0 - 4.0 09/23 HI [facility] CHEMISTRY A/G Ratio 0.9 0.7 - 1.6 09/23 Normal [facility] HEMATOLOGY Hypochrom Slight None Seen 09/23 Normal [facility] (09/23/2012 12:35:00) Center HEMATOLOGY Elliptocyte Slight None Seen 09/23 [facility] *ABN* [place] (09/23/2012 12:35:00) HEMATOLOGY Basophils # 0.1 K/CMM 0.0 - 0.2 09/23 Normal [facility] HEMATOLOGY Plt Morph Normal 09/23 Normal [facility] (09/23/2012 12:35:00) Center URINALYSIS UA <=1.0 0.1 - 1.0 09/23 NA [facility] Urobilinogen mg/dL Medical
*NA*< Center br/>(09/23 12:35:00) <sup> </sup> URINALYSIS UA Nitrite Negative Negative 09/23 Normal [facility] [place] (09/23/2012 12:35:00) Center URINALYSIS UA Blood Negative Negative 09/23 Normal [facility] (09/23/2012 12:35:00) Center URINALYSIS UA Leuk Est Negative Negative 09/23 Normal [facility] (09/23/2012 12:35:00) Center URINALYSIS Micro? Not Indicated 09/23 NA Medical *NA* [place] (09/23/2012 12:35:00) URINALYSIS UA Ketones Negative mg/dL Negative 09/23 NA [facility] *NA* Center (09/23/2012 12:35:00) URINALYSIS UA Bili Negative Negative 09/23 NA [facility] *NA* [place] (09/23/2012 12:35:00) URINALYSIS UA Protein Negative mg/dL Negative 09/23 Normal [facility] (09/23/2012 12:35:00) Center URINALYSIS UA pH 5.0 5.0 - 8.0 09/23 Normal [facility] URINALYSIS UA Glucose Negative mg/dL Negative 09/23 NA [facility] *NA* [place] (09/23/2012 12:35:00) URINALYSIS UA Color Light Yellow Yellow 09/23 NA [facility] *NA* [place] (09/23/2012 12:35:00) URINALYSIS UA Spec Grav 1.004 <=1.030 09/23 Normal [facility] URINALYSIS UA Turbidity Clear Clear 09/23 Normal [facility] (09/23/2012 12:35:00) Center BEDSIDE Gluc POC 153 mg/dL 70 - 99 06/28 HI 1Interpretive [facility] GLUCOSE Lifsc Data: Medical TESTING Center Upper Reportable Limit: 200 mg/dL. CHEMISTRY U Preg Negative Negative 06/28 Normal [facility] (06/28/2012 07:27:00) [place] Vital Signs Vital Sign Value Date Comments Source Systolic (mm Hg) 124 08/13/2013 [facility] Respitory Rate 18 08/13/2013 [facility] Temperature Oral (F) 98.8 F 08/13/2013 [facility] Heart Rate 102 08/13/2013 [facility] Diastolic (mm Hg) 46 08/13/2013 [facility] Systolic (mm Hg) 107 08/13/2013 [facility] Respitory Rate 18 08/13/2013 [facility] Diastolic (mm Hg) 63 08/13/2013 [facility] Heart Rate 103 08/13/2013 [facility] Heart Rate 105 08/13/2013 [facility] Respitory Rate 18 08/13/2013 [facility] Systolic (mm Hg) 117 08/13/2013 [facility] Diastolic (mm Hg) 70 08/13/2013 [facility] Weight 81.818 08/13/2013 [facility] Height 162.56 cm 08/13/2013 [facility] Temperature Oral (F) 98.4 F 08/13/2013 [facility] Diastolic (mm Hg) 61 07/15/2013 [facility] Temperature Oral (F) 97.7 F 07/15/2013 [facility] Center Systolic (mm Hg) 117 07/15/2013 [facility] Respitory Rate 18 07/15/2013 [facility] Heart Rate 90 07/15/2013 [facility] Respitory Rate 18 07/14/2013 [facility] Heart Rate 104 07/14/2013 [facility] Diastolic (mm Hg) 46 07/14/2013 [facility] Systolic (mm Hg) 91 07/14/2013 [facility] Diastolic (mm Hg) 61 07/14/2013 [facility] Systolic (mm Hg) 95 07/14/2013 [facility] Respitory Rate 18 07/14/2013 [facility] Heart Rate 120 07/14/2013 [facility] Temperature Oral (F) 97.5 F 07/14/2013 [facility] Temperature Oral (F) 97.6 F 07/14/2013 [facility] Height 162.56 cm 07/12/2013 [facility] Weight 86.364 07/12/2013 [facility] Temperature Oral (F) 97.1 F 04/03/2013 [facility] Respitory Rate 18 04/03/2013 [facility] Heart Rate 79 04/03/2013 [facility] Diastolic (mm Hg) 66 04/03/2013 [facility] Systolic (mm Hg) 94 04/03/2013 [facility] Diastolic (mm Hg) 28 04/03/2013 [facility] Systolic (mm Hg) 116 04/03/2013 [facility] Respitory Rate 20 04/03/2013 [facility] Heart Rate 100 04/03/2013 [facility] Temperature Oral (F) 97.0 F 04/03/2013 [facility] Height 162.56 cm 04/03/2013 [facility] Weight 90 04/03/2013 [facility] Height 162.56 cm 04/02/2013 [facility] Weight 90 04/02/2013 [facility] Systolic (mm Hg) 132 03/09/2013 [facility] Diastolic (mm Hg) 72 03/09/2013 [facility] Heart Rate 114 03/09/2013 [facility] Temperature Oral (F) 97.7 F 03/09/2013 [facility] Respitory Rate 20 03/09/2013 [facility] Temperature Oral (F) 97.7 F 03/09/2013 [facility] Heart Rate 108 03/09/2013 [facility] Systolic (mm Hg) 143 03/09/2013 [facility] Respitory Rate 18 03/09/2013 [facility] Diastolic (mm Hg) 81 03/09/2013 [facility] Heart Rate 115 03/09/2013 [facility] Diastolic (mm Hg) 70 03/09/2013 [facility] Systolic (mm Hg) 153 03/09/2013 [facility] Respitory Rate 18 03/09/2013 [facility] Temperature Oral (F) 97.5 F 03/09/2013 [facility] Weight 90 03/07/2013 [facility] Height 162.56 cm 03/07/2013 [facility] Height 162.56 cm 03/06/2013 [facility] Weight 90 03/06/2013 [facility] Systolic (mm Hg) 127 12/07/2012 [facility] Diastolic (mm Hg) 49 12/07/2012 [facility] Heart Rate 90 12/07/2012 [facility] Temperature Oral (F) 98.3 F 12/07/2012 [facility] Respitory Rate 18 12/07/2012 [facility] Systolic (mm Hg) 104 12/07/2012 [facility] Temperature Oral (F) 98.6 F 12/07/2012 [facility] Respitory Rate 18 12/07/2012 [facility] Heart Rate 78 12/07/2012 [facility] Diastolic (mm Hg) 57 12/07/2012 [facility] Heart Rate 89 12/07/2012 [facility] Temperature Oral (F) 97.6 F 12/07/2012 [facility] Respitory Rate 18 12/07/2012 [facility] Systolic (mm Hg) 105 12/07/2012 [facility] Diastolic (mm Hg) 51 12/07/2012 [facility] Weight 100 11/29/2012 [facility] Height 162.56 cm 11/29/2012 [facility] Weight 100.568 11/29/2012 [facility] Height 162.56 cm 11/29/2012 [facility] Weight 101.364 11/28/2012 [facility] Height 162.56 cm 11/28/2012 [facility] Diastolic (mm Hg) 55 11/17/2012 [facility] Systolic (mm Hg) 117 11/17/2012 [facility] Diastolic (mm Hg) 70 11/17/2012 [facility] Systolic (mm Hg) 118 11/17/2012 [facility] Diastolic (mm Hg) 61 11/17/2012 [facility] Systolic (mm Hg) 154 11/17/2012 [facility] Temperature Oral (F) 97.8 F 11/17/2012 [facility] Temperature Oral (F) 97.9 F 11/17/2012 [facility] Temperature Oral (F) 98.6 F 11/17/2012 [facility] Height 162.56 cm 11/17/2012 [facility] Weight 103.21 11/17/2012 [facility] Respitory Rate 18 11/17/2012 [facility] Height 162.56 cm 11/16/2012 [facility] Weight 100 11/16/2012 [facility] Diastolic (mm Hg) 58 11/14/2012 [facility] Systolic (mm Hg) 121 11/14/2012 [facility] Respitory Rate 20 11/14/2012 [facility] Heart Rate 84 11/14/2012 [facility] Temperature Oral (F) 98.0 F 11/14/2012 [facility] Respitory Rate 20 11/14/2012 [facility] Systolic (mm Hg) 103 11/14/2012 [facility] Diastolic (mm Hg) 54 11/14/2012 [facility] Temperature Oral (F) 98.0 F 11/14/2012 [facility] Heart Rate 83 11/14/2012 [facility] Diastolic (mm Hg) 68 11/14/2012 [facility] Respitory Rate 20 11/14/2012 [facility] Heart Rate 79 11/14/2012 [facility] Systolic (mm Hg) 136 11/14/2012 [facility] Temperature Oral (F) 98.4 F 11/14/2012 [facility] Height 162.56 cm 11/06/2012 [facility] Weight 100 11/06/2012 [facility] Height 162.56 cm 11/06/2012 [facility] Weight 100 11/06/2012 [facility] Height 162.56 cm 11/06/2012 [facility] Weight 104.545 11/06/2012 [facility] Systolic (mm Hg) 131 11/01/2012 [facility] Diastolic (mm Hg) 62 11/01/2012 [facility] Systolic (mm Hg) 125 11/01/2012 [facility] Diastolic (mm Hg) 62 11/01/2012 [facility] Systolic (mm Hg) 155 10/31/2012 [facility] Diastolic (mm Hg) 54 10/31/2012 [facility] Temperature Oral (F) 99.7 F 10/31/2012 [facility] Temperature Oral (F) 96.7 F 10/31/2012 [facility] Temperature Oral (F) 98.1 F 10/31/2012 [facility] Respitory Rate 19 10/31/2012 [facility] Respitory Rate 19 10/31/2012 [facility] Respitory Rate 19 10/31/2012 [facility] Weight 78.2 10/24/2012 [facility] Heart Rate 126 10/23/2012 [facility] Heart Rate 130 10/23/2012 [facility] Weight 113.636 10/23/2012 [facility] Height 162.56 cm 10/23/2012 [facility] Heart Rate 119 10/23/2012 [facility] Height 162.56 cm 10/23/2012 [facility] Systolic (mm Hg) 123 10/08/2012 [facility] Respitory Rate 19 10/08/2012 [facility] Diastolic (mm Hg) 51 10/08/2012 [facility] Heart Rate 81 10/08/2012 [facility] Temperature Oral (F) 98.8 F 10/08/2012 [facility] Diastolic (mm Hg) 55 10/08/2012 [facility] Respitory Rate 20 10/08/2012 [facility] Systolic (mm Hg) 136 10/08/2012 [facility] Heart Rate 82 10/08/2012 [facility] Temperature Oral (F) 98.9 F 10/08/2012 [facility] Diastolic (mm Hg) 47 10/08/2012 [facility] Systolic (mm Hg) 107 10/08/2012 [facility] Temperature Oral (F) 98.1 F 10/08/2012 [facility] Respitory Rate 18 10/08/2012 [facility] Heart Rate 75 10/08/2012 [facility] Weight 118.200 10/03/2012 [facility] Height 162.56 cm 10/03/2012 [facility] Weight 118.182 09/23/2012 [facility] Height 162.56 cm 09/23/2012 [facility] Diastolic (mm Hg) 57 06/28/2012 [facility] Heart Rate 104 06/28/2012 [facility] Respitory Rate 18 06/28/2012 [facility] Systolic (mm Hg) 147 06/28/2012 [facility] Systolic (mm Hg) 153 06/28/2012 [facility] Diastolic (mm Hg) 61 06/28/2012 [facility] Respitory Rate 16 06/28/2012 [facility] Systolic (mm Hg) 136 06/28/2012 [facility] Diastolic (mm Hg) 52 06/28/2012 [facility] Respitory Rate 18 06/28/2012 [facility] Temperature Oral (F) 98.5 F 06/28/2012 [facility] Heart Rate 104 06/28/2012 [facility] Weight 118.182 06/14/2012 [facility] Height 162.56 cm 06/14/2012 [facility] Encounters Location Location Encounter Encounter Reason Attending ADM DC Status Source Details Type Number For Visit Provider Date Date [facility] DS [id number] PEGGYU/ WOLFGANG 06/28 Active [facility] REFLUX SUSHILA [facility] Inpatient [id number] WOLFGANG 10/03 10/08 Active [facility] SUSHILA /2012 [facility] Inpatient [id number] N/V DARELL 10/23 11/01 Active [facility] DEHYDRATI SDRINGOLA- /2012 [facility] [place] ON MARANGA [facility] Inpatient [id number] LAVONE 11/05 11/14 Active [facility] ROSE /2012 [facility] OU [id number] CHIP 11/16 11/17 Active [facility] MARKUS /2012 [facility] Inpatient [id number] JUAN J 11/29 12/07 Active [facility] BRANDO /2012 [facility] OU [id number] SANJUANA 03/07 03/09 Active [facility] OSUAGWU /2012 [facility] OU [id number] JEANNIE 04/02 04/03 Active [facility] ADOLFO /2012 [facility] OU [id number] GASTROPAR JEANNIE 07/12 07/14 Active [facility] ESIS ADOLFO /2012 [facility] JACKIE [id number] WOLFGANG 07/26 07/27 Active [facility] SUSHILA /2012 [facility] Emergency [id number] KATELYN 08/13 08/13 Active [facility] BUBLEWICZ /2012 [facility] Appointment [id number] 11/06 [place] ; Sushila Physicia Wolfgang ns [id number] 08/13 Physicia ns [id number] 08/20 Physicia ns [id number] 09/10 Physicia ns [id number] 11/04 Physicia ns [id number] 12/30 Physicia ns [id number] 12/30 Physicia ns [id number] 02/17 Physicia ns [id number] 05/19 Physicia ns [id number] 07/21 Physicia ns [id number] 01/19 Physicia ns [id number] 03/02 Physicia ns [id number] 03/23 Physicia ns [id number] 04/06 Physicia ns [id number] 04/20 Physicia ns [id number] 04/27 Physicia ns [id number] 10/12 Physicia ns [id number] 10/19 Physicia ns [id number] 12/21 Physicia ns [id number] 12/28 Physicia ns [id number] 02/01 Physicia ns [facility] Outpatient [id number] SERGO WHITFIELD [facility] Procedures Procedure Code Date Perfomer Comments Source section [id number] [facility] Cholecystectomy [id number] [facility] <sup>1</sup> [facility] Hand repair [id number] 76435, x'2 [facility] <sup>2</sup> [facility] Tonsillectomy [id number] 48998 [facility] <sup>3</sup> [facility] Bypass of stomach [id number] [facility] Rotator cuff repair [id number] [facility] Heart procedure [id number] 1cardiac [facility] <sup>1</sup> stent for [facility]
--- OUTSIDE RECORDS SUMMARY | 2018-02-13 16:06 | XMS REPORT | Summary of Care ---
:1965 Author Name Leanne Nielsen Address Unavailable Unavailable , Care Team Providers Name Role Phone JEANIE MUKHERJEE M.D. Unavailable Unavailable MATTHEW RANDOLPH,DORIAN Mazariegos Primary Care Provider Unavailable Functional Status Functional Status Health Issues Name Dates Details Functional status health issues are not documented Status: Cognitive Status Health Issues Name Dates Details Cognitive status health issues are not documented Status: Problems Name Dates Details Normal routine physical examination (V70.0, Z00.00) Status: Active Intertrochanteric fracture of right hip (820.21, S72.141A) Status: Active Medications Name Dates Details Medication not documented Allergies and Adverse Reactions Name Dates Details Allergy history not documented Status: Procedures Procedure Dates Details [U] XRAY HIP UNILATERAL MIN 2 VWS RIGHT [id number] Ordered:31-Oct-2015 Immunization Name Dates Details Immunizations not documented Social History Smoking StatusUnknown if ever smoked Vital Signs Date Test Result Details No Known Vitals to report Results Date Description Value Details No Known Results Plan of Care Planned Observations Name Dates Details Planned Goals not documented Goal Planned Encounters Appointment; Provider: JEANIE MUKHERJEE On 05-Nov-2015 11:00 Interventions Provided Labs/Procedures/Imaging[U] XRAY HIP UNILATERAL MIN 2 VWS RIGHT 40536; To be Done : 05 Nov 2015 Instructions Instructions not documented Encounters Appointment; JEANIE MUKHERJEE On 10-Sep-2015 Encounter Diagnosis: Problem not documented 11:00 Appointment; JEANIE MUKHERJEE On 20-Aug-2015 Encounter Diagnosis: Problem not documented 12:00 Appointment; JEANIE MUKHERJEE On 13-Aug-2015 Encounter Diagnosis: Problem not documented 07:45 Appointment; Sukhwinder Renteria On 06-Nov-2014 Encounter Diagnosis: Problem not documented 10:00
--- OUTSIDE RECORDS SUMMARY | 2018-02-13 16:06 | XMS REPORT | Summary of Care ---
:1965 Author Name Landon Marley Address Unavailable Unavailable , Care Team Providers Name Role Phone JEANIE MUKHERJEE M.D. Unavailable Unavailable MATTHEW RANDOLPH, DORIAN Mazariegos Primary Care Provider Unavailable Functional Status [...] XRAY HIP UNILATERAL MIN 2 VWS RIGHT [id number] Ordered:30-Jan-2016 Immunization Name Dates Details Immunizations not documented Social History Smoking StatusUnknown if ever smoked Vital Signs Date Test Result Details No Known Vitals to report Results Date Description Value Details Results not documented Plan of Care Planned Observations Name Dates Details Planned Goals not documented Goal Planned Encounters Appointment; Provider: JEANIE MUKHERJEE On 04-Feb-2016 10:15 Interventions Provided Labs/Procedures/Imaging[U] XRAY HIP UNILATERAL MIN 2 VWS RIGHT [id number]; To be Done : 04 Feb 2016 Instructions Instructions not documented Encounters Appointment; JEANIE MUKHERJEE On 31-Dec-2015 Encounter Diagnosis: Problem not documented 11:30 Appointment; JEANIE MUKHERJEE On 31-Dec-2015 Encounter Diagnosis: Problem not documented 09:00 Appointment; JEANIE MUKHERJEE On 05-Nov-2015 Encounter Diagnosis: Problem not documented 11:00 Appointment; JEANIE MUKHERJEE On 10-Sep-2015 Encounter Diagnosis: Problem not documented 11:00 Appointment; JEANIE MUKHERJEE On 20-Aug-2015 Encounter Diagnosis: Problem not documented 12:00 Appointment; JEANIE MUKHERJEE On 13-Aug-2015 Encounter Diagnosis: Problem not documented 07:45 Appointment; Sukhwinder Renteria On 06-Nov-2014 Encounter Diagnosis: Problem not documented 10:00
--- OUTSIDE RECORDS SUMMARY | 2018-02-13 16:06 | XMS REPORT | Summary of Care ---
:1965 Author Name Landon Marley Address Unavailable Unavailable , Care Team Providers Name Role Phone Landon Marley Unavailable Unavailable DORIAN CASTRO MD Primary Care Provider Unavailable Functional Status Functional [...] not documented Status: Procedures Procedure Dates Details Procedures not documented Immunization Name Dates Details Immunizations not documented Social History Smoking StatusUnknown if ever smoked Vital Signs Date Test Result Details No Known Vitals to report Results Date Description Value Details Results not documented Plan of Care Planned Observations Name Dates Details Planned Goals not documented Goal Planned Encounters Appointment; Provider: JEANIE MUKHERJEE On 04-Feb-2016 10:15 Instructions Instructions not documented Encounters Appointment; JEANIE [...]
--- OUTSIDE RECORDS SUMMARY | 2018-02-13 16:07 | XMS REPORT | Summary of Care ---
:1965 Author Name Porsha Gramajo R.N. Address Unavailable Unavailable , Care Team Providers Name Role Phone DORIAN CASTRO MD Primary Care Provider Unavailable [...] Planned Encounters Appointment; Provider: JEANIE MUKHERJEE On 16-Jun-2016 10:30 Instructions Instructions not documented Encounters Appointment; CARLA BRICENO On Encounter Diagnosis: Problem not documented 10:00 Appointment; JEANIE MUKHERJEE On 31-Dec-2015 Encounter Diagnosis: [...]
--- OUTSIDE RECORDS SUMMARY | 2018-02-13 16:07 | XMS REPORT | Summary of Care ---
:1965 Author Name Porsha Gramajo R.N. Address Unavailable Unavailable , Care Team Providers Name Role Phone DORIAN CASTRO MD Primary Care Provider Unavailable Unavailable Unavailable Unavailable Functional Status Functional Status Health Issues [...] to report Results Date Description Value Details 19-May-2016 10:15 [U] XRAY HIP UNILATERAL MIN 2 VWS RIGHT [id number] XR HIP UNILATERAL MIN 2 VWS Images acquired, not RIGHT reported on this accession number. Plan of Care Planned Observations Name Dates Details Planned Goals not documented Goal Planned Encounters Appointment; Provider: JEANIE MUKHERJEE On 21-Jul-2016 10:45 Instructions Instructions not documented Encounters Appointment; JEANIE MUKHERJEE On 19-May-2016 Encounter Diagnosis: Problem not documented 09:30 Appointment; CARLA BRICENO On Encounter Diagnosis: Problem [...]
--- OUTSIDE RECORDS SUMMARY | 2018-02-13 16:07 | XMS REPORT | Summary of Care ---
:1965 Author Name Porsha Gramajo R.N. Address Unavailable Unavailable , Care Team Providers Name Role Phone DORIAN CSATRO MD Primary Care Provider Unavailable Functional Status [...] Encounter Diagnosis: Problem not documented 12:00 Appointment; EJANIE MUKHERJEE On 13-Aug-2015 Encounter Diagnosis: Problem not documented 07:45 Appointment; Sukhwinder Renteria On 06-Nov-2014 Encounter Diagnosis: Problem not documented 10:00
--- OUTSIDE RECORDS SUMMARY | 2018-02-13 16:07 | XMS REPORT | Summary of Care ---
[...] not documented Goal Planned Encounters Appointment; Provider: JEANEI MUKHERJEE On 16-Jun-2016 10:30 Instructions Instructions not [...]
--- OUTSIDE RECORDS SUMMARY | 2018-02-13 16:07 | XMS REPORT | Summary of Care ---
[...] Status: Procedures Procedure Dates Details [U] XRAY PELVIS 1 OR 2 VWS [id number] Ordered: Immunization Name Dates Details Immunizations not documented Social History Smoking StatusUnknown if ever smoked Vital Signs Date Test Result Details No Known Vitals to report Results Date Description Value Details Results not documented Plan of Care Planned Observations Name Dates Details Planned Goals not documented Goal Planned Encounters Appointment; Provider: JEANIE MUKHERJEE On 10:15 Interventions Provided Labs/Procedures/Imaging[U] XRAY PELVIS 1 OR 2 VWS 36100; To be Done: 11 Feb 2016 Instructions Instructions not documented Encounters [...]
--- OUTSIDE RECORDS SUMMARY | 2018-02-13 16:07 | XMS REPORT | Summary of Care ---
:1965 Author Name Presley Atwood Address Unavailable Unavailable , Care Team Providers [...] XRAY HIP UNILATERAL MIN 2 VWS RIGHT [id number] Ordered:18-May-2016 Immunization Name Dates Details Immunizations not documented Social History Smoking StatusUnknown if ever smoked Vital Signs Date Test Result Details No Known Vitals to report Results Date Description Value Details Results not documented Plan of Care Planned Observations Name Dates Details Planned Goals not documented Goal Planned Encounters Appointment; Provider: JEANIE MUKHERJEE On 19-May-2016 09:30 Interventions Provided Labs/Procedures/Imaging[U] XRAY HIP UNILATERAL MIN 2 VWS RIGHT [id number]; To be Done : 19 May 2016 Instructions Instructions not documented Encounters Appointment; CARLA [...]
--- OUTSIDE RECORDS SUMMARY | 2018-02-13 16:07 | XMS REPORT | Summary of Care ---
:1965 Author Name Leanne Nielsen Address [facility] Unavailable , Care Team Providers Name Role Phone Leanne Nielsen Unavailable Unavailable DORIAN CASTRO MD Unavailable Unavailable Unavailable Unavailable Unavailable Functional Status Name Dates Details Functional status health issues are not documented Status: Name Dates Details Cognitive status health issues are not documented Status: Problems Name Dates Details Normal routine physical examination (V70.0, Z00.00) Status: Active Intertrochanteric fracture of right hip (820.21, S72.141A) Status: Active Medications Name Dates Details Medications not documented Allergies and Adverse Reactions Name Dates Details Allergy history not documented Status: Procedures Procedure Dates Details Procedures not documented Immunization Name Dates Details Immunizations not documented Social History Name Dates Details Unknown if ever smoked Vital Signs Date Test Result Details No Known Vitals to report Results Date Description Value Details Results not documented Plan of Care Name Dates Details Planned Observations Planned Goals not documented Instructions Name Dates Details Instructions not documented Encounters Appointment; JEANIE MUKHERJEE M.D. On: 13-Aug-2015 7:45 Encounter Diagnosis: Problem not documented Appointment; JEANIE MUKHERJEE M.D. On: 20-Aug-2015 12:00 Encounter Diagnosis: Problem not documented Appointment; JEANIE MUKHERJEE M.D. On: 10-Sep-2015 11:00 Encounter Diagnosis: Problem not documented Appointment; JEANIE MUKHERJEE M.D. On: 05-Nov-2015 11:00 Encounter Diagnosis: Problem not documented Appointment; JEANIE MUKHERJEE M.D. On: 31-Dec-2015 9:00 Encounter Diagnosis: Problem not documented Appointment; JEANIE MUKHERJEE M.D. On: 31-Dec-2015 11:30 Encounter Diagnosis: Problem not documented Appointment; CARLA BRICENO P.A. On: 18-Feb-2016 10:00 Encounter Diagnosis: Problem not documented Appointment; JEANIE MUKHERJEE M.D. On: 19-May-2016 9:30 Encounter Diagnosis: Problem not documented Appointment; JEANIE MUKHERJEE M.D. On: 21-Jul-2016 10:45 Encounter Diagnosis: Problem not documented
--- OUTSIDE RECORDS SUMMARY | 2018-02-13 16:07 | XMS REPORT | Summary of Care ---
[...] [U] XRAY PELVIS 1 OR 2 VWS 95273 Ordered:23-Jan-2016 Immunization Name Dates Details Immunizations not documented Social History Smoking StatusUnknown if ever smoked Vital Signs Date Test Result Details No Known Vitals to report Results Date Description Value Details Results not documented Plan of Care Planned Observations Name Dates Details Planned Goals not documented Goal Planned Encounters Appointment; Provider: JEANIE MUKHERJEE On 28-Jan-2016 11:45 Interventions Provided Labs/Procedures/Imaging[U] XRAY PELVIS 1 OR 2 VWS 75742; To be Done: 28 Jan 2016 Instructions Instructions not documented Encounters Appointment; [...]
--- OUTSIDE RECORDS SUMMARY | 2018-02-13 16:07 | XMS REPORT | Summary of Care ---
[...] Appointment; Provider: JEANIE MUKHERJEE On 19-May-2016 09:30 Instructions Instructions not documented Encounters Appointment; CARLA [...]
--- OUTSIDE RECORDS SUMMARY | 2018-02-13 16:07 | XMS REPORT | Summary of Care ---
[...] XRAY HIP UNILATERAL MIN 2 VWS RIGHT [id number] XR HIP UNILATERAL MIN 2 VWS Images [...]
--- OUTSIDE RECORDS SUMMARY | 2018-02-13 16:07 | XMS REPORT | Summary of Care ---
:1965 Author Name Leanne Nielsen Address Unavailable Unavailable , Care Team Providers Name Role Phone EJANIE MUKHERJEE M.D. Unavailable Unavailable MATTHEW RANDOLPH, DORIAN [...] [U] XRAY PELVIS 1 OR 2 VWS 89877 Ordered: Immunization Name Dates Details Immunizations not documented Social History Smoking StatusUnknown if ever smoked Vital Signs Date Test Result Details No Known Vitals to report Results Date Description Value Details Results not documented Plan of Care Planned Observations Name Dates Details Planned Goals not documented Goal Planned Encounters Appointment; Provider: JEANIE MUKHERJEE On 12:00 Interventions Provided Labs/Procedures/Imaging[U] XRAY PELVIS 1 OR 2 VWS 35546; To be Done: 18 Feb 2016 Instructions Instructions not documented Encounters [...]
--- OUTSIDE RECORDS SUMMARY | 2018-02-13 16:07 | XMS REPORT | Summary of Care ---
:1965 Author Name Leanne Nielsen Address [facility] Unavailable , Care Team Providers Name Role Phone JEANIE MUKHERJEE M.D. Unavailable Unavailable MATTHEW RANDOLPH, DORIAN Mazariegos Unavailable Unavailable Unavailable Unavailable Unavailable Functional Status [...] Status: Procedures Procedure Dates Details [U] XRAY FEMUR 2 VWS RIGHT [id number] Date: 23-Feb-2017 Immunization Name Dates Details Immunizations not documented Social History Name Dates Details Unknown if ever smoked Vital Signs Date Test Result Details No Known Vitals to report Results Date Description Value Details Results not documented Plan of Care Name Dates Details Planned Observations Planned Goals not documented Planned Encounters Appointment; JEANIE MUKHERJEE M.D. On: 02-Mar-2017 10:45 Interventions Provided Labs/Procedures/Imaging[U] XRAY FEMUR 2 VWS RIGHT [id number]; To Be Done: 02 Mar 2017 Instructions Name Dates Details Instructions not documented [...] 21-Jul-2016 10:45 Encounter Diagnosis: Problem not documented Appointment; JEANIE MUKHERJEE M.D. On: 19-Jan-2017 11:30 Encounter Diagnosis: Problem not documented Appointment; JEANIE MUKHERJEE M.D. On: 02-Mar-2017 10:45 Encounter Diagnosis: Problem not documented
--- OUTSIDE RECORDS SUMMARY | 2018-02-13 16:07 | XMS REPORT | Summary of Care ---
:1965 Author Name Ramses Nielsenistin Address Unavailable Unavailable , Care Team Providers Name Role Phone Leanne Nielsen Unavailable Unavailable DORIAN CASTRO MD Primary Care [...] Encounters Appointment; Provider: JEANIE MUKHERJEE On 10:15 Instructions Instructions not documented Encounters Appointment; [...]
--- OUTSIDE RECORDS SUMMARY | 2018-02-13 16:07 | XMS REPORT | Summary of Care ---
:1965 Author Name Sukhwinder Renteria M.D. Address Unavailable Unavailable , Care Team Providers Name Role Phone DORIAN CASTRO MD Unavailable Unavailable Unavailable Unavailable [...] Planned Encounters Appointment; JEANIE MUKHERJEE M.D. On: 19-Jan-2017 11:30 Instructions Name Dates Details Instructions not documented [...]
--- OUTSIDE RECORDS SUMMARY | 2018-02-13 16:07 | XMS REPORT | Summary of Care ---
[...] Encounters Appointment; Provider: JEANIE MUKHERJEE On 12:00 Instructions Instructions not documented Encounters Appointment; JEANIE [...]
--- OUTSIDE RECORDS SUMMARY | 2018-02-13 16:07 | XMS REPORT | Summary of Care ---
:1965 Author Name Porsha Gramajo R.N. Address Unavailable Unavailable , Care Team Providers Name Role Phone Avila Macdonald, Porsha Unavailable Unavailable DORIAN CASTRO MD Primary Care [...]
--- OUTSIDE RECORDS SUMMARY | 2018-02-13 16:07 | XMS REPORT | Summary of Care ---
:1965 Author Name Jin Allen Address Unavailable Unavailable , Care Team Providers Name Role Phone JEANIE MUKHERJEE M.D. Unavailable Unavailable MATTHEW RANDOLPH, DORIAN Mazariegos Primary Care Provider Unavailable Unavailable Unavailable Unavailable [...] Details [U] XRAY FEMUR 2 VWS RIGHT 40034 Ordered:17-Jul-2016 Immunization Name Dates Details Immunizations not documented Social History Smoking StatusUnknown if ever smoked Vital Signs Date Test Result Details No Known Vitals to report Results Date Description Value Details Results not documented Plan of Care Planned Observations Name Dates Details Planned Goals not documented Goal Planned Encounters Appointment; Provider: JEANIE MUKHERJEE On 21-Jul-2016 10:45 Interventions Provided Labs/Procedures/Imaging[U] XRAY FEMUR 2 VWS RIGHT 13497; To be Done: 21 Jul 2016 Instructions Instructions not documented Encounters Appointment; [...]
--- OUTSIDE RECORDS SUMMARY | 2018-02-13 16:08 | XMS REPORT | Summary of Care ---
[...] of right hip (820.21, S72.141A) Status: Active Fracture of right tibia (823.80, S82.201A) Status: Active Medications Name Dates Details Medications not documented Allergies and Adverse Reactions Name Dates Details Allergy history not documented Status: Procedures Procedure Dates Details [U] XRAY FEMUR 2 VWS RIGHT 13686 Date: 20-Dec-2017 Immunization Name Dates Details Immunizations not documented Social History Name Dates Details Unknown if ever smoked Vital Signs Date Test Result Details No Known Vitals to report Results Date Description Value Details Results not documented Plan of Care Name Dates Details Planned Observations Planned Goals not documented Planned Encounters Appointment; JEANIE MUKHERJEE M.D. On: 21-Dec-2017 13:30 Interventions Provided Labs/Procedures/Imaging[U] XRAY FEMUR 2 VWS RIGHT 30381; To Be Done: 21 Dec 2017 Instructions Name Dates Details Instructions not documented Encounters Appointment; JEANIE MUKHERJEE M.D. On: 31-Dec-2015 9:00 [...] 02-Mar-2017 10:45 Encounter Diagnosis: Problem not documented Appointment; JEANIE MUKHERJEE M.D. On: 27-Apr-2017 13:15 Encounter Diagnosis: Problem not documented Appointment; JEANIE MUKHERJEE M.D. On: 19-Oct-2017 12:00 Encounter Diagnosis: Problem not documented Appointment; JEANIE MUKHERJEE M.D. On: 21-Dec-2017 13:30 Encounter Diagnosis: Problem not documented
--- OUTSIDE RECORDS SUMMARY | 2018-02-13 16:08 | XMS REPORT | Summary of Care ---
[...] Details [U] XRAY FEMUR 2 VWS RIGHT [id number] Date: 15-Apr-2017 Immunization Name Dates Details Immunizations not documented Social History Name Dates Details Unknown if ever smoked Vital Signs Date Test Result Details No Known Vitals to report Results Date Description Value Details Results not documented Plan of Care Name Dates Details Planned Observations Planned Goals not documented Planned Encounters Appointment; JEANIE MUKHERJEE M.D. On: 20-Apr-2017 11:45 Interventions Provided Labs/Procedures/Imaging[U] XRAY FEMUR 2 VWS RIGHT 47563; To Be Done: 20 Apr 2017 Instructions Name Dates Details Instructions not [...] not documented Appointment; JEANIE MUKHERJEE M.D. On: 20-Apr-2017 11:45 Encounter Diagnosis: Problem not documented
--- OUTSIDE RECORDS SUMMARY | 2018-02-13 16:08 | XMS REPORT | Summary of Care ---
[...] XRAY HIP UNILATERAL MIN 2 VWS RIGHT [id number] Date: 19-Mar-2017 Immunization Name Dates Details Immunizations not documented Social History Name Dates Details Unknown if ever smoked Vital Signs Date Test Result Details No Known Vitals to report Results Date Description Value Details Results not documented Plan of Care Name Dates Details Planned Observations Planned Goals not documented Planned Encounters Appointment; JEANIE MUKHERJEE M.D. On: 23-Mar-2017 13:00 Interventions Provided Labs/Procedures/Imaging[U] XRAY HIP UNILATERAL MIN 2 VWS RIGHT [id number]; To Be Done : 23 Mar 2017 Instructions Name Dates Details Instructions [...] not documented Appointment; JEANIE MUKHERJEE M.D. On: 23-Mar-2017 13:00 Encounter Diagnosis: Problem not documented
--- OUTSIDE RECORDS SUMMARY | 2018-02-13 16:08 | XMS REPORT | Summary of Care ---
[...] Details [U] XRAY FEMUR 2 VWS RIGHT 38440 Date: 31-Mar-2017 Immunization Name Dates Details Immunizations not documented Social History Name Dates Details Unknown if ever smoked Vital Signs Date Test Result Details No Known Vitals to report Results Date Description Value Details Results not documented Plan of Care Name Dates Details Planned Observations Planned Goals not documented Planned Encounters Appointment; JEANIE MUKHERJEE M.D. On: 06-Apr-2017 11:30 Interventions Provided Labs/Procedures/Imaging[U] XRAY FEMUR 2 VWS RIGHT [id number]; To Be Done: 06 Apr 2017 Instructions Name Dates Details Instructions [...] not documented Appointment; JEANIE MUKHERJEE M.D. On: 06-Apr-2017 11:30 Encounter Diagnosis: Problem not documented
--- OUTSIDE RECORDS SUMMARY | 2018-02-13 16:08 | XMS REPORT | Summary of Care ---
[...] Appointment; JEANIE MUKHERJEE M.D. On: 20-Apr-2017 11:45 Instructions Name Dates Details Instructions not documented [...]
--- OUTSIDE RECORDS SUMMARY | 2018-02-13 16:08 | XMS REPORT | Summary of Care ---
:1965 Author Name Caprice Coco Address Unavailable Unavailable , Care Team Providers Name Role Phone Coco Vasques Unavailable Unavailable DORIAN CASTRO MD Unavailable Unavailable [...]
--- OUTSIDE RECORDS SUMMARY | 2018-02-13 16:08 | XMS REPORT | Summary of Care ---
:1965 Author Name Chela Ramirez M.A. Address [facility] Unavailable , Care Team [...] not documented Status: Procedures Procedure Dates Details CT Knee without contrast 20406 Date: 04-Feb-2018 Immunization Name Dates Details Immunizations not documented Social History Name Dates Details Unknown if ever smoked Vital Signs Date Test Result Details No Known Vitals to report Results Date Description Value Details [id number] [U] XRAY KNEE 1 OR 2 VWS RIGHT 16063 XR KNEE 1 OR 2 VWS RIGHT Images acquired, not reported on this accession number. [id number] [U] XRAY HIP UNILATERAL MIN 2 VWS RIGHT 99496 XR HIP UNILATERAL MIN 2 VWS RIGHT Images acquired, not reported on this accession number. Plan of Care Name Dates Details Planned Observations CT Knee without contrast 49445 On: 04-Feb-2018 Intent Planned Goals not documented Interventions Provided Labs/Procedures/Imaging[U] XRAY HIP UNILATERAL MIN 2 VWS RIGHT 34322; Done: 01 Feb 2018[U] XRAY KNEE 1 OR 2 VWS RIGHT 45361; Done: 01 Feb 2018 Instructions Name Dates Details Instructions not documented Encounters Appointment; CARLA BRICENO P.A. On: 18-Feb-2016 10:00 [...] not documented Appointment; JEANIE MUKHERJEE M.D. On: 01-Feb-2018 12:15 Encounter Diagnosis: Problem not documented
--- OUTSIDE RECORDS SUMMARY | 2018-02-13 16:08 | XMS REPORT | CCD ---
:1965 Author Organization [facility] Care Team Providers Name Role Phone Sukhwinder Renteria Referring Provider Allergies, Adverse Reactions, Alerts Substance Reaction Status NKDA Active Medications Medication Instructions Start Date End Date Status Lasix 40 mg oral tablet 40 mg, 1 tab, PO, Daily, 30 06/28/2012 Ordered tab, Substitution Allowed, TAB Cymbalta 60 mg oral delayed 60 mg, 1 cap, PO, BID, 30 06/28/2012 Ordered release capsule cap, Substitution Allowed, ECCAP Crestor 20 mg oral tablet 20 mg, 1 tab, PO, Daily, 30 06/28/2012 Ordered tab, Substitution Allowed, TAB Flexeril 10 mg oral tablet 10 mg, 1 tab, PO, TID, PRN, 06/28/2012 Ordered 30 tab, for spasm, Substitution Allowed, TAB carvedilol 25 mg oral tablet 25 mg, 1 tab, PO, BID, 60 06/28/2012 Ordered tab, Substitution Allowed, TAB omeprazole 20 mg oral 20 mg, 1 tab, PO, Daily, 30 06/28/2012 Ordered enteric coated tablet tab, Substitution Allowed, ECTAB Lyrica 150 mg oral capsule 150 mg, 1 cap, PO, BID, 90 06/28/2012 Ordered cap, Substitution Allowed, CAP Abilify 10 mg oral tablet 10 mg, 1 tab, PO, Daily, 30 06/28/2012 Ordered tab, Substitution Allowed, TAB buPROPion 150 mg oral 150 mg, 1 tab, PO, Daily, 60 06/28/2012 Ordered tablet, extended release tab, Substitution Allowed, ERTAB Klonopin 0.5 mg oral tablet 0.5 mg, 1 tab, PO, TID, 06/28/2012 Ordered Substitution Allowed, TAB Diovan 160 mg oral tablet 160 mg, 1 tab, PO, Daily, 30 06/28/2012 Ordered tab, Substitution Allowed, TAB Zetia Daily, Substitution Allowed 06/28/2012 Ordered metFORmin 1000 mg oral 1,000 mg, 1 tab, PO, BID, 30 06/28/2012 Ordered tablet tab, Substitution Allowed NovoLog Substitution Allowed 06/28/2012 Ordered Klor-Con 10 oral tablet, 10 mEq, 1 tab, PO, Daily, 180 06/28/2012 Ordered extended release tab, Substitution Allowed, ERTAB Levemir FlexPen Substitution Allowed 06/28/2012 Ordered ferrous gluconate 324 mg 324 mg, 1 tab, PO, Daily, 100 06/28/2012 Ordered oral tablet tab, Substitution Allowed, TAB Vital Signs Most recent to oldest 1 2 3 [Reference Range]: Height 162.56 cm (06/14/2012 09:34:00) Temperature Oral 98.5 DegF [96.4-99.1 DegF] (06/28/2012 07:19:00) Systolic Blood Pressure 147 mmHg 153 mmHg 136 mmHg [90-140 mmHg] *HI* *HI* (06/28/2012 09:15:00) (06/28/2012 09:40:00) (06/28/2012 09:30:00) Diastolic Blood Pressure 57 mmHg 61 mmHg 52 mmHg [60-90 mmHg] *LOW* (06/28/2012 09:30:00) *LOW* (06/28/2012 09:40:00) (06/28/2012 09:15:00) Respiratory Rate [14-20 18 BRMIN 16 BRMIN 18 BRMIN BRMIN] (06/28/2012 09:40:00) (06/28/2012 09:30:00) (06/28/2012 09:15:00) Peripheral Pulse Rate 104 bpm 104 bpm [60-100 bpm] *HI* *HI* (06/28/2012 09:40:00) (06/28/2012 07:19:00) Weight 118.182 kg (06/14/2012 09:34:00) Results BEDSIDE GLUCOSE TESTING Most recent to oldest [Reference Range]: 1 Gluc POC Lifscn [70-99 mg/dL] 153 mg/dL 1 *HI* (06/28/2012 07:37:00) 1Interpretive Data: Upper Reportable Limit: 200 mg/dL.CHEMISTRY Most recent to oldest [Reference Range]: 1 U Preg [Negative] Negative (06/28/2012 07:27:00)
--- OUTSIDE RECORDS SUMMARY | 2018-02-13 16:08 | XMS REPORT | Summary of Care ---
:1965 Author Name Presley Atwood Address Unavailable Unavailable , Care Team Providers Name Role Phone Presley Atwood Unavailable Unavailable DORIAN CASRTO MD Unavailable Unavailable Unavailable Unavailable Unavailable Functional [...] Planned Encounters Appointment; JEANIE MUKHERJEE M.D. On: 27-Apr-2017 13:15 Instructions Name Dates Details Instructions not documented [...]
--- OUTSIDE RECORDS SUMMARY | 2018-02-13 16:08 | XMS REPORT | Summary of Care ---
:1965 Author Name CapriceAlbertoCoco Address Unavailable Unavailable , Care Team Providers [...] Planned Encounters Appointment; JEANIE MUKHERJEE M.D. On: 19-Oct-2017 12:00 Instructions Name Dates Details Instructions not documented Encounters Appointment; JEANIE MUKHERJEE M.D. On: 05-Nov-2015 11:00 [...]
--- OUTSIDE RECORDS SUMMARY | 2018-02-13 16:08 | XMS REPORT | Summary of Care ---
[...] Details [U] XRAY FEMUR 2 VWS RIGHT [id number] Date: 21-Dec-2017 Immunization Name Dates Details Immunizations not documented Social History Name Dates Details Unknown if ever smoked Vital Signs Date Test Result Details No Known Vitals to report Results Date Description Value Details Results not documented Plan of Care Name Dates Details Planned Observations Planned Goals not documented Planned Encounters Appointment; JEANIE MUKHERJEE M.D. On: 28-Dec-2017 12:30 Interventions Provided Labs/Procedures/Imaging[U] XRAY FEMUR 2 VWS RIGHT [id number]; To Be Done: 28 Dec 2017 Instructions Name Dates Details Instructions [...] not documented Appointment; JEANIE MUKHERJEE M.D. On: 28-Dec-2017 12:30 Encounter Diagnosis: Problem not documented
--- OUTSIDE RECORDS SUMMARY | 2018-02-13 16:08 | XMS REPORT | Summary of Care ---
[...] Status: Procedures Procedure Dates Details [U] XRAY KNEE 1 OR 2 VWS RIGHT [id number] Date: 11-Oct-2017 [U] XRAY TIBIA FIBULA 2 VWS RIGHT [id number] Date: 11-Oct-2017 Immunization Name Dates Details Immunizations not documented Social History Name Dates Details Unknown if ever smoked Vital Signs Date Test Result Details No Known Vitals to report Results Date Description Value Details Results not documented Plan of Care Name Dates Details Planned Observations Planned Goals not documented Planned Encounters Appointment; JEANIE MUKHERJEE M.D. On: 12-Oct-2017 13:00 Interventions Provided Labs/Procedures/Imaging[U] XRAY KNEE 1 OR 2 VWS RIGHT 47522; To Be Done: 12 Oct 2017[U] XRAY TIBIA FIBULA 2 VWS RIGHT 21456; To Be Done: 12 Oct 2017 Instructions Name Dates Details Instructions not [...] not documented Appointment; JEANIE MUKHERJEE M.D. On: 12-Oct-2017 13:00 Encounter Diagnosis: Problem not documented
--- OUTSIDE RECORDS SUMMARY | 2018-02-13 16:08 | XMS REPORT | Summary of Care ---
[...] Appointment; JEANIE MUKHERJEE M.D. On: 28-Dec-2017 12:30 Instructions Name Dates Details Instructions not documented [...]
--- OUTSIDE RECORDS SUMMARY | 2018-02-13 16:08 | XMS REPORT | Summary of Care ---
[...] Details [U] XRAY FEMUR 2 VWS RIGHT [id number] Date: 22-Apr-2017 Immunization Name Dates Details Immunizations not documented Social History Name Dates Details Unknown if ever smoked Vital Signs Date Test Result Details No Known Vitals to report Results Date Description Value Details Results not documented Plan of Care Name Dates Details Planned Observations Planned Goals not documented Planned Encounters Appointment; JEANIE MUKHERJEE M.D. On: 27-Apr-2017 13:15 Interventions Provided Labs/Procedures/Imaging[U] XRAY FEMUR 2 VWS RIGHT 63032; To Be Done: 27 Apr 2017 Instructions Name Dates Details Instructions [...]
--- OUTSIDE RECORDS SUMMARY | 2018-02-13 16:08 | XMS REPORT | Summary of Care ---
:1965 Author Name Rosio Hung M.A. Address Unavailable Unavailable , Care Team Providers [...] XRAY KNEE 1 OR 2 VWS RIGHT [id number] Date: 01-Feb-2018 [U] XRAY HIP UNILATERAL MIN 2 VWS RIGHT 13715 Date: 01-Feb-2018 Immunization Name Dates Details Immunizations not documented Social History Name Dates Details Unknown if ever smoked Vital Signs Date Test Result Details No Known Vitals to report Results Date Description Value Details Results not documented Plan of Care Name Dates Details Planned Observations Planned Goals not documented Interventions Provided Labs/Procedures/Imaging[U] XRAY HIP UNILATERAL MIN 2 VWS RIGHT 79984; To Be Done : 01 Feb 2018[U] XRAY KNEE 1 OR 2 VWS RIGHT 40177; To Be Done: 01 Feb 2018 Instructions Name Dates Details Instructions not documented Encounters Appointment; CARLA BRICENO P.A. On: 18-Feb-2016 10:00 Encounter Diagnosis: Problem not documented Appointment; JEANIE MUKHERJEE M.D. On: 19-May-2016 9:30 Encounter Diagnosis: Problem not documented Appointment; JEANIE MUKHEJREE M.D. On: 21-Jul-2016 10:45 Encounter Diagnosis: Problem [...]
--- OUTSIDE RECORDS SUMMARY | 2018-02-13 16:08 | XMS REPORT | Summary of Care ---
:1965 Author Name Presley Atwood Address Unavailable Unavailable , Care Team Providers Name Role Phone Presley Atwood Unavailable Unavailable DORIAN CASTRO MD Unavailable Unavailable [...] Appointment; JEANIE MUKHERJEE M.D. On: 06-Apr-2017 11:30 Instructions Name Dates Details Instructions not [...]
--- OUTSIDE RECORDS SUMMARY | 2018-02-13 16:09 | XMS REPORT | CCD ---
:[address] [facility] Care Team Providers Name Role Phone Sukhwinder Renteria Referring Provider Allergies, Adverse Reactions, Alerts Substance Reaction Status NKDA Active Problem List Condition Effective Dates Status Acid reflux Resolved Anemia Resolved Anxiety Resolved Arthritis Resolved Depression Resolved Diabetes mellitus type 1 Resolved Edema of lower extremity Resolved Fibromyalgia Resolved Hyperlipidemia Resolved Hypertension Resolved Medications Medication Instructions Start Date End Date Status Philo 325 mg-10 mg / 15 mL, Route: PO, 10/07/2012 10/08/2012 Discontinued 15 mL oral solution Drug Form: SOLN, Dosing Weight 118.2, kg, Q4H, PRN For Pain, Start date: 10/07/12 14:22:00, Duration: 30 day, Stop date: 11/06/12 14:21:00 Dextrose 50% in Water 25 mL, Route: IVP, 10/03/2012 10/04/2012 Discontinued IV Start date: 10/03/12 14:28:00, Duration: 30 day, Stop date: 11/02/12 14:27:00, PRN Blood Glucose Results labetalol 10 mg, 2 mL, Route: 10/04/2012 10/04/2012 Discontinued IVP, Drug form: INJ, Q15Min, Dosing Weight 118.2, kg, PRN Hypertension, Start date: 10/04/12 5:11:00, Duration: 3 doses or times, Stop date: Limited # of times Lortab 500 mg-7.5 15 ml, PO, Q4H, PRN, 10/08/2012 Ordered mg/15 mL oral elixir 250 mL, for pain, Substitution Allowed, Maintenance, ELIX heparin 5,000 unit, 1 mL, 10/03/2012 10/03/2012 Completed Route: SUB-Q, Drug form: INJ, PRE OP, Start date: 10/03/12 6:00:00, Duration: 1 day, Stop date: 10/04/12 5:59:00 scopolamine 1 patch, Route: TOP, 10/03/2012 10/03/2012 Completed Drug form: ERFILM, PRE OP, Start date: 10/03/12 6:00:00, Duration: 1 day, Stop date: 10/04/12 5:59:00 Mefoxin 2 gm, Route: IVPB, 10/03/2012 10/03/2012 Completed Drug form: INJ, PRE OP, Priority: STAT, Start date: 10/03/12 5:50:00, Duration: 1 day, Stop date: 10/04/12 5:49:00 hydromorphone 15 mg IV, Start date: 10/03/2012 10/04/2012 Discontinued 10/03/12 14:19:00, Duration: 30, 30 ml, 118.2 carvedilol 25 mg, 1 tab, Route: 10/04/2012 10/07/2012 Voided With Results PO, Drug form: TAB, Q12H, Dosing Weight 118.2, kg, Start date: 10/04/12 21:00:00, Duration: 30 day, Stop date: 11/03/12 9:00:00 Diovan 160 mg, 1 tab, Route: 10/04/2012 10/07/2012 Voided With Results PO, Drug form: TAB, Daily, Dosing Weight 118.2, kg, Start date: 10/04/12 14:00:00, Duration: 30 day, Stop date: 11/03/12 9:00:00 ondansetron 4 mg, 2 mL, Route: 10/03/2012 10/03/2012 Discontinued IVP, Drug form: INJ, ONCE, Dosing Weight 118.182, kg, PRN Nausea & Vomiting, Start date: 10/03/12 11:00:00 acetaminophen-oxycodon 1 tab, Route: PO, 10/03/2012 10/03/2012 Discontinued e 325 mg-5 mg oral Drug Form: TAB, tablet Dosing Weight 118.182, kg, Q4H, PRN Pain Score 1-3, Start date: 10/03/12 11:00:00, Stop date: 10/04/12 0:00:00 hydromorphone 0.5 mg, 0.25 mL, 10/03/2012 10/03/2012 Discontinued Route: IVP, Drug form: INJ, Q5Min, Dosing Weight 118.182, kg, PRN Pain Score 4-6, Start date: 10/03/12 11:00:00, Duration: 5 doses or times, Stop date: 10/04/12 0:00:00 Lactated Ringers 1,000 mL, Rate: 50 10/03/2012 10/03/2012 Discontinued Injection IV 1,000 mL ml/hr, Infuse over: 20 hr, Route: IV, kg, Total Volume: 1,000, Start date: 10/03/12 11:00:00, Duration: 30 day, Stop date: 11/02/12 10:59:00 Philo 325 mg-10 mg / 30 mL, Route: PO, 10/04/2012 10/05/2012 Discontinued 15 mL oral solution Drug Form: SOLN, Dosing Weight 118.2, kg, Q4H, PRN Pain Score 6-10, Start date: 10/04/12 17:20:00, Duration: 30 day, Stop date: 11/03/12 17:19:00 Philo 325 mg-10 mg / 15 mL, Route: PO, 10/04/2012 10/05/2012 Discontinued 15 mL oral solution Drug Form: SOLN, Dosing Weight 118.2, kg, Q4H, PRN Pain Score 1-5, Start date: 10/04/12 17:20:00, Duration: 30 day, Stop date: 11/03/12 17:19:00 morphine Sulfate 2 mg, 1 mL, Route: 10/05/2012 10/06/2012 Discontinued IVP, Drug form: INJ, Q2H, Dosing Weight 118.2, kg, PRN Pain, Start date: 10/05/12 23:45:00, Duration: 30 day, Stop date: 11/04/12 23:44:00 hydrALAZINE 20 mg, 1 mL, Route: 10/04/2012 10/08/2012 Discontinued IVP, Drug form: INJ, Q4H, Dosing Weight 118.2, kg, PRN Elevated BP, Start date: 10/04/12 9:00:00, Duration: 30 day, Stop date: 11/03/12 8:59:00, sbp > 160 Lactated Ringers 1,000 mL, Rate: 125 10/03/2012 10/04/2012 Discontinued Injection IV 1,000 mL ml/hr, Infuse over: 8 hr, Route: IV, kg, Total Volume: 1,000, Start date: 10/03/12 14:00:00, Duration: 30 day, Stop date: 11/02/12 13:59:00 Levemir 20 unit, 0.2 mL, 10/04/2012 10/04/2012 Discontinued Route: SUB-Q, Drug form: INJ, Q12H, Dosing Weight 118.2, kg, Priority: NOW, Start date: 10/04/12 7:02:00, Duration: 30 day, Stop date: 11/02/12 21:00:00 Trandate 10 mg, 2 mL, Route: 10/04/2012 10/08/2012 Discontinued IVP, Drug form: INJ, Q4H, PRN Elevated BP, Start date: 10/04/12 9:05:00, Duration: 30 day, Stop date: 11/03/12 9:04:00 Mobic 15 mg oral 10 mg, PO, Daily, 30 09/23/2012 Ordered tablet tab, Substitution Allowed, TAB dexamethasone 4 mg, 1 mL, Route: 10/06/2012 10/06/2012 Deleted IV, Drug form: INJ, ONCE, Start date: 10/06/12 9:00:00, Stop date: 10/06/12 9:00:00 Zofran 4 mg, 2 mL, Route: 10/03/2012 10/06/2012 Discontinued IVP, Drug form: INJ, Q8H, PRN Nausea, Start date: 10/03/12 14:22:00, Duration: 30 day, Stop date: 11/02/12 14:21:00 acetaminophen-hydrocod 30 mL, Route: PO, 10/06/2012 10/06/2012 Deleted one 325 mg-10 mg/15 mL Drug Form: SOLN, Q4H, oral solution PRN Pain, Start date: 10/06/12 7:33:00, Duration: 30 day, Stop date: 11/05/12 7:32:00 Humulin R 100 units/mL 10 unit, 0.1 mL, 10/03/2012 10/04/2012 Discontinued injectable solution Route: SUB-Q, Drug form: SOLN, TID-Before Meals, PRN Blood Glucose Results, Start date: 10/03/12 14:30:00, Duration: 30 day, Stop date: 11/02/12 14:29:00 Humulin R 100 units/mL 8 unit, 0.08 mL, 10/03/2012 10/04/2012 Discontinued injectable solution Route: SUB-Q, Drug form: SOLN, TID-Before Meals, PRN Blood Glucose Results, Start date: 10/03/12 14:30:00, Duration: 30 day, Stop date: 11/02/12 14:29:00 acetaminophen-hydrocod 15 mL, Route: PO, 10/06/2012 10/06/2012 Deleted one 325 mg-10 mg/15 mL Drug Form: SOLN, Q4H, oral solution PRN Pain, Start date: 10/06/12 7:33:00, Duration: 30 day, Stop date: 11/05/12 7:32:00 Ofirmev 1,000 mg, 100 mL, 10/03/2012 10/04/2012 Completed Route: IV, Drug form: INJ, Q6H, Start date: 10/03/12 18:00:00, Duration: 4 doses or times, Stop date: 10/04/12 12:00:00 Dilaudid 0.2 mg, 0.1 mL, 10/06/2012 10/07/2012 Discontinued Route: IV, Drug form: INJ, Q4H, Dosing Weight 118.2, kg, PRN Pain, Start date: 10/06/12 14:47:00, Duration: 30 day, Stop date: 11/05/12 14:46:00 Zofran 4 mg, 2 mL, Route: 10/06/2012 10/08/2012 Discontinued IV, Drug form: INJ, Q4H, Dosing Weight 118.2, kg, PRN Nausea, Start date: 10/06/12 14:47:00, Duration: 30 day, Stop date: 11/05/12 14:46:00 Benadryl 25 mg, 0.5 mL, Route: 10/03/2012 10/08/2012 Discontinued IM, Drug form: INJ, Bedtime, PRN Insomnia, Start date: 10/03/12 14:04:00, Duration: 30 day, Stop date: 11/02/12 14:03:00 Lactated Ringers 1,000 mL, Rate: 125 10/04/2012 10/08/2012 Discontinued Injection IV 1,000 mL ml/hr, Infuse over: 8 hr, Route: IV, kg, Total Volume: 1,000, Start date: 10/04/12 7:38:00, Stop date: 11/03/12 7:37:00 Benadryl 25 mg, 0.5 mL, Route: 10/03/2012 10/08/2012 Discontinued IVP, Drug form: INJ, Bedtime, PRN Insomnia, Start date: 10/03/12 14:04:00, Duration: 30 day, Stop date: 11/02/12 14:03:00 heparin 5,000 unit, 1 mL, 10/04/2012 10/08/2012 Discontinued Route: SUB-Q, Drug form: INJ, Q8H, Start date: 10/04/12 8:00:00, Duration: 30 day, Stop date: 11/03/12 0:00:00 metoprolol 5 mg/5 ml 5 mg, 5 mL, Route: 10/06/2012 10/07/2012 Discontinued INJ IVP, Drug form: INJ, Q6H, Dosing Weight 118.2, kg, Start date: 10/06/12 12:00:00, Duration: 30 day, Stop date: 11/05/12 6:00:00 Insulin regular 12 unit, 0.12 mL, 10/04/2012 10/08/2012 Discontinued Route: SUB-Q, Drug form: SOLN, Sliding Scale, Dosing Weight 118.2, kg, PRN Blood Glucose Results, Start date: 10/04/12 0:40:00, Duration: 30 day, Stop date: 11/03/12 0:39:00 Insulin regular 9 unit, 0.09 mL, 10/04/2012 10/08/2012 Discontinued Route: SUB-Q, Drug form: SOLN, Sliding Scale, Dosing Weight 118.2, kg, PRN Blood Glucose Results, Start date: 10/04/12 0:40:00, Duration: 30 day, Stop date: 11/03/12 0:39:00 Insulin regular 15 unit, 0.15 mL, 10/04/2012 10/08/2012 Discontinued Route: SUB-Q, Drug form: SOLN, Sliding Scale, Dosing Weight 118.2, kg, PRN Blood Glucose Results, Start date: 10/04/12 0:40:00, Duration: 30 day, Stop date: 11/03/12 0:39:00 Insulin regular 6 unit, 0.06 mL, 10/04/2012 10/08/2012 Discontinued Route: SUB-Q, Drug form: SOLN, Sliding Scale, Dosing Weight 118.2, kg, PRN Blood Glucose Results, Start date: 10/04/12 0:40:00, Duration: 30 day, Stop date: 11/03/12 0:39:00 Insulin regular 3 unit, 0.03 mL, 10/04/2012 10/08/2012 Discontinued Route: SUB-Q, Drug form: SOLN, Sliding Scale, Dosing Weight 118.2, kg, PRN Blood Glucose Results, Start date: 10/04/12 0:40:00, Duration: 30 day, Stop date: 11/03/12 0:39:00 Dextrose 50% Syringe 25 gm, 50 mL, Route: 10/04/2012 10/08/2012 Discontinued IVP, Drug Form: INJ, Dosing Weight 118.2, kg, PRN, PRN Blood Glucose Results, Start date: 10/04/12 0:40:00, Duration: 30 day, Stop date: 11/03/12 0:39:00 glucagon 1 mg, Route: IM, Drug 10/04/2012 10/08/2012 Discontinued form: PDR/INJ, PRN, Dosing Weight 118.2, kg, PRN Blood Glucose Results, Start date: 10/04/12 0:40:00, Duration: 30 day, Stop date: 11/03/12 0:39:00 Dextrose 50% Syringe 12.5 gm, 25 mL, 10/04/2012 10/08/2012 Discontinued Route: IVP, Drug Form: INJ, Dosing Weight 118.2, kg, PRN, PRN Blood Glucose Results, Start date: 10/04/12 0:40:00, Duration: 30 day, Stop date: 11/03/12 0:39:00 Mefoxin 2 gm, Route: IVPB, 10/03/2012 10/04/2012 Completed Drug form: INJ, ABXQ8H, Start date: 10/03/12 16:00:00, Duration: 2 doses or times, Stop date: 10/04/12 0:00:00 Diovan 160 mg, 1 tab, Route: 10/07/2012 10/08/2012 Discontinued PO, Drug form: TAB, Daily, Dosing Weight 118.2, kg, Start date: 10/07/12 17:00:00, Duration: 30 day, Stop date: 11/06/12 9:00:00 magnesium sulfate 2 gm, 50 mL, Route: 10/06/2012 10/06/2012 Completed IVPB, Drug form: INJ, Q2H, Dosing Weight 118.2, kg, Total dose=4 gm, Start date: 10/06/12 12:00:00, Duration: 2 doses or times, Stop date: 10/06/12 14:00:00 Humulin R 100 units/mL 6 unit, 0.06 mL, 10/03/2012 10/04/2012 Discontinued injectable solution Route: SUB-Q, Drug form: SOLN, TID-Before Meals, PRN Blood Glucose Results, Start date: 10/03/12 14:30:00, Duration: 30 day, Stop date: 11/02/12 14:29:00 hydrALAZINE 10 mg, 0.5 mL, Route: 10/04/2012 10/04/2012 Completed IVP, Drug form: INJ, ONCE, Dosing Weight 118.2, kg, Start date: 10/04/12 6:53:00, Stop date: 10/04/12 6:53:00 Humulin R 100 units/mL 4 unit, 0.04 mL, 10/03/2012 10/04/2012 Discontinued injectable solution Route: SUB-Q, Drug form: SOLN, TID-Before Meals, PRN Blood Glucose Results, Start date: 10/03/12 14:30:00, Duration: 30 day, Stop date: 11/02/12 14:29:00 Cipro 500 mg, 10 mL, Route: 10/07/2012 10/08/2012 Discontinued NJ, Drug form: SUSP, Q12H, Dosing Weight 118.2, kg, Start date: 10/07/12 20:00:00, Duration: 7 day, Stop date: 10/14/12 8:00:00 Phenergan 12.5 mg, 0.5 mL, 10/03/2012 10/07/2012 Discontinued Route: IVPB, Drug form: INJ, Q4H, PRN Nausea, Start date: 10/03/12 14:08:00, Duration: 30 day, Stop date: 11/02/12 14:07:00 ciprofloxacin 500 mg, 10 mL, Route: 10/07/2012 10/07/2012 Deleted NJ, Drug form: SUSP, Q12H, Dosing Weight 118.2, kg, Start date: 10/07/12 14:30:00, Duration: 7 day, Stop date: 10/14/12 9:00:00 Lopressor 5 mg, 5 mL, Route: 10/03/2012 10/04/2012 Discontinued IV, Drug form: INJ, Q6H, Start date: 10/03/12 16:00:00, Duration: 30 day, Stop date: 11/02/12 10:00:00 potassium chloride 20 mEq, 100 mL, Route: IVPB, Drug form: INJ, ONCE, Dosing Weight 118.2, kg, Total dose=20 mEq, Start date: 10/07/12 7:53:00, Duration: 1 doses or times, Stop date: 10/07/12 7:53:00, For K=3.5 - 3.9 mEq/L 10/07/2012 10/07/2012 Completed For K=3.5 - 3.9 mEq/L Humulin R 100 units/mL 2 unit, 0.02 mL, 10/03/2012 10/04/2012 Discontinued injectable solution Route: SUB-Q, Drug form: SOLN, TID-Before Meals, PRN Blood Glucose Results, Start date: 10/03/12 14:30:00, Duration: 30 day, Stop date: 11/02/12 14:29:00 Coreg 25 mg, 1 tab, Route: 10/07/2012 10/08/2012 Discontinued PO, Drug form: TAB, Q12H, Dosing Weight 118.2, kg, Start date: 10/07/12 21:00:00, Duration: 30 day, Stop date: 11/06/12 9:00:00 naloxone 0.2 mg, 0.5 mL, 10/03/2012 10/08/2012 Discontinued Route: IV, Drug form: INJ, PRN, PRN Narcotic Reversal, Start date: 10/03/12 14:21:00, Duration: 30 day, Stop date: 11/02/12 14:20:00 Diovan 160 mg, 1 tab, Route: 10/07/2012 10/07/2012 Deleted PO, Drug form: TAB, Daily, Dosing Weight 118.2, kg, Start date: 10/07/12 14:00:00, Duration: 30 day, Stop date: 11/06/12 9:00:00 Levemir FlexPen 20 unit, 0.2 mL, 10/05/2012 10/07/2012 Discontinued Route: SUB-Q, Drug form: INJ, Q12H, Start date: 10/05/12 21:00:00, Duration: 30 day, Stop date: 11/04/12 9:00:00 Phenergan 12.5 mg, 0.5 mL, 10/03/2012 10/07/2012 Discontinued Route: IM, Drug form: INJ, Q4H, PRN Nausea, Start date: 10/03/12 14:07:00, Duration: 30 day, Stop date: 11/02/12 14:06:00 Blistex 1 appl, Route: TOP, 10/06/2012 10/08/2012 Discontinued PRN, Drug form: STIC PRN Other -See Comment, Start date: 10/06/12 22:48:00, Duration: 30 day, Stop date: 11/05/12 22:47:00 Dextrose 50% in Water 50 mL, Route: IV, 10/03/2012 10/04/2012 Discontinued IV Start date: 10/03/12 14:29:00, Duration: 30 day, Stop date: 11/02/12 14:28:00, PRN Blood Glucose Results Blistex Lip Germfask Route: TOP, Dosing 10/06/2012 10/06/2012 Deleted Weight 118.2, kg, PRN, PRN, Start date: 10/06/12 22:46:00, Duration: 30 day, Stop date: 11/05/12 22:45:00, prn Coreg 25 mg, 1 tab, Route: 10/07/2012 10/07/2012 Deleted PO, Drug form: TAB, Q12H, Dosing Weight 118.2, kg, Start date: 10/07/12 14:00:00, Duration: 30 day, Stop date: 11/06/12 9:00:00 Vital Signs Most recent to oldest 1 2 3 [Reference Range]: Height 162.56 cm 162.56 cm (10/03/2012 13:37:00) (09/23/2012 15:19:00) Temperature Oral 98.8 DegF 98.9 DegF 98.1 DegF [96.4-99.1 DegF] (10/08/2012 11:49:00) (10/08/2012 08:00:00) (10/08/2012 04: 33:00) Systolic Blood Pressure 123 mmHg 136 mmHg 107 mmHg [90-140 mmHg] (10/08/2012 11:49:00) (10/08/2012 08:00:00) (10/08/2012 04:33: 00) Diastolic Blood Pressure 51 mmHg 55 mmHg 47 mmHg [60-90 mmHg] *LOW* *LOW* *LOW* (10/08/2012 11:49:00) (10/08/2012 08:00:00) (10/08/2012 04:33:00) Respiratory Rate [14-20 19 BRMIN 20 BRMIN 18 BRMIN BRMIN] (10/08/2012 11:49:00) (10/08/2012 08:00:00) (10/08/2012 04:33:00) Peripheral Pulse Rate 81 bpm 82 bpm 75 bpm [60-100 bpm] (10/08/2012 11:49:00) (10/08/2012 08:00:00) (10/08/2012 04:33: 00) Weight 118.200 kg 118.182 kg (10/03/2012 13:37:00) (09/23/2012 15:19:00) Results BEDSIDE GLUCOSE TESTING Most recent to oldest 1 2 3 [Reference Range]: Gluc POC Lifscn [70-99 265 mg/dL 1 204 mg/dL 2 247 mg/dL 3 mg/dL] *HI* *HI* *HI* (10/08/2012 11:47:00) (10/08/2012 07:58:00) (10/07/2012 21:55:00) Comment1 Notify RN/MD Notify RN/MD Notify RN/MD *NA* *NA* *NA* (10/08/2012 11:47:00) (10/08/2012 07:58:00) (10/07/2012 21:55:00) 1Interpretive Data: Upper Reportable Limit: 200 mg/dL.2Interpretive Data: Upper Reportable Limit: 200 mg/dL.3Interpretive Data: Upper Reportable Limit: 200 mg/dL.URINALYSIS Most recent to oldest [Reference 1 2 3 Range]: UA Turbidity [Clear] Slight Clear *ABN* (09/23/2012 12:35:00) (10/06/2012 11:42:00) UA Color [Yellow] Yellow Light Yellow *NA* *NA* (10/06/2012 11:42:00) (09/23/2012 12:35:00) UA pH [5.0-8.0] 5.5 5.0 (10/06/2012 11:42:00) (09/23/2012 12:35:00) UA Spec Grav [<=1.030] 1.011 1.004 (10/06/2012 11:42:00) (09/23/2012 12:35:00) UA Glucose 500mg/dL *NA* (10/06/2012 11:42:00) UA Glucose [Negative mg/dL] Negative mg/dL *NA* (09/23/2012 12:35:00) UA Blood [Negative] Negative Negative (10/06/2012 11:42:00) (09/23/2012 12:35:00) UA Ketones [Negative mg/dL] >=150 mg/dL Negative mg/dL *ABN* *NA* (10/06/2012 11:42:00) (09/23/2012 12:35:00) UA Protein [Negative mg/dL] 20 mg/dL Negative mg/dL *ABN* (09/23/2012 12:35:00) (10/06/2012 11:42:00) UA Urobilinogen [0.1-1.0 mg/dL] <=1.0 mg/dL <=1.0 mg/dL *NA* *NA* (10/06/2012 11:42:00) (09/23/2012 12:35:00) UA Bili [Negative] Negative Negative *NA* *NA* (10/06/2012 11:42:00) (09/23/2012 12:35:00) UA Leuk Est [Negative] Negative Negative (10/06/2012 11:42:00) (09/23/2012 12:35:00) UA Nitrite [Negative] Negative Negative (10/06/2012 11:42:00) (09/23/2012 12:35:00) UA WBC [0-5 /HPF] 3 /HPF (10/06/2012 11:42:00) UA RBC [0-2 /HPF] 3 /HPF *HI* (10/06/2012 11:42:00) UA Bacteria [None Seen /HPF] Many /HPF *ABN* (10/06/2012 11:42:00) UA Sq Epi [Few /LPF] Many /LPF *ABN* (10/06/2012 11:42:00) UA Mucus [None Seen /LPF] Few /LPF *NA* (10/06/2012 11:42:00) UA [place] Yeast [None Seen /HPF] Moderate /HPF *ABN* (10/06/2012 11:42:00) Micro? Performed Not Indicated *NA* *NA* (10/06/2012 11:42:00) (09/23/2012 12:35:00) BLOOD BANK RESULTS Most recent to oldest [Reference Range]: 1 2 3 ABO/Rh A POS *Unknown* (10/03/2012 06:00:00) Antibody Scrn Negative (10/03/2012 06:00:00) CHEMISTRY Most recent to oldest 1 2 3 [Reference Range]: Sodium Lvl [135-145 mEq/L] 134 mEq/L 135 mEq/L 134 mEq/L *LOW* (10/07/2012 03:25:00) *LOW* (10/08/2012 03:57:00) (10/06/2012 04:25:00) Potassium Lvl [3.5-5.1 3.6 mEq/L 3.4 mEq/L 3.9 mEq/L mEq/L] (10/08/2012 03:57:00) *LOW* (10/06/2012 04:25:00) (10/07/2012 03:25:00) Chloride Lvl [95-109 96 mEq/L 95 mEq/L 97 mEq/L mEq/L] (10/08/2012 03:57:00) (10/07/2012 03:25:00) (10/06/2012 04:25:00) CO2 [24-32 mEq/L] 24 mEq/L 24 mEq/L 22 mEq/L (10/08/2012 03:57:00) (10/07/2012 03:25:00) *LOW* (10/06/2012 04:25:00) AGAP [10.0-20.0 mEq/L] 17.6 mEq/L 19.4 mEq/L 18.9 mEq/L (10/08/2012 03:57:00) (10/07/2012 03:25:00) (10/06/2012 04:25:00) Creatinine Lvl [0.5-1.4 0.6 mg/dL 0.5 mg/dL 0.9 mg/dL mg/dL] (10/08/2012 03:57:00) (10/07/2012 03:25:00) (10/06/2012 04:25:00) eGFR 109 mL/min/1.73m2 4 116 mL/min/1.73m2 5 76 mL/min/1.73m2 6 *NA* *NA* *NA* (10/08/2012 03:57:00) (10/07/2012 03:25:00) (10/06/2012 04:25:00) BUN [7-22 mg/dL] 4 mg/dL 6 mg/dL 9 mg/dL *LOW* *LOW* (10/06/2012 04:25:00) (10/08/2012:57:00) (10/07/2012 03:25:00) B/C Ratio [6-25] 21 (09/23/2012 12:35:00) Glucose Lvl [70-99 mg/dL] 129 mg/dL 7 99 mg/dL 8 234 mg/dL 9 *HI* (10/07/2012 03:25:00) *HI* (10/08/2012 03:57:00) (10/06/2012 04:25:00) Total Protein [6.4-8.4 7.8 g/dL g/dL] (09/23/2012 12:35:00) Albumin Lvl [3.5-5.0 g/dL] 3.6 g/dL (09/23/2012 12:35:00) Globulin [2.0-4.0 g/dL] 4.2 g/dL *HI* (09/23/2012 12:35:00) A/G Ratio [0.7-1.6] 0.9 (09/23/2012 12:35:00) Calcium Lvl [8.5-10.5 8.5 mg/dL 8.1 mg/dL 8.3 mg/dL mg/dL] (10/08/2012 03:57:00) *LOW* *LOW* (10/07/2012 03:25:00) (10/06/2012 04:25:00) Phosphorus [2.5-4.5 mg/dL] 2.7 mg/dL 2.6 mg/dL 2.5 mg/dL (10/08/2012 03:57:00) (10/07/2012 03:25:00) (10/06/2012 04:25:00) Magnesium Lvl [1.8-2.4 1.6 mg/dL 2.1 mg/dL 1.5 mg/dL mg/dL] *LOW* (10/07/2012 03:25:00) *LOW* (10/08/2012 03:57:00) (10/06/2012 04:25:00) ALT [0-65 unit/L] 50 unit/L (09/23/2012 12:35:00) AST [0-37 unit/L] 31 unit/L (09/23/2012 12:35:00) Alk Phos [39-136 unit/L] 150 unit/L *HI* (09/23/2012 12:35:00) Bili Total [0.2-1.3 mg/dL] 0.3 mg/dL (09/23/2012 12:35:00) Ca Ion mgdL [4.65-5.20 4.68 mg/dL 4.72 mg/dL 4.36 mg/dL mg/dL] (10/08/2012 03:57:00) (10/07/2012 03:25:00) *LOW* (10/05/2012 02:48:00) Ca Ion [1.16-1.30 mMol/L] 1.17 mMol/L 1.18 mMol/L 1.09 mMol/L (10/08/2012 03:57:00) (10/07/2012 03:25:00) *LOW* (10/05/2012 02:48:00) Ca Norm [1.16-1.30 mMol/L] 1.18 mMol/L 1.16 mMol/L 1.07 mMol/L (10/08/2012 03:57:00) (10/07/2012 03:25:00) *LOW* (10/05/2012 02:48:00) Ca Norm mgdL [4.65-5.20 4.72 mg/dL 4.64 mg/dL 4.28 mg/dL mg/dL] (10/08/2012 03:57:00) *LOW* *LOW* (10/07/2012 03:25:00) (10/05/2012 02:48:00) U Preg [Negative] Negative (10/03/2012 06:31:00) 4Result Comment: The eGFR is calculated using the CKD-EPI formula. In most young , healthy individualsthe eGFR will be >90 mL/min/1.73m2. The eGFR declines with age. An eGFR of 60-89 may be normal in some populations, particularly the elderly, for whom the CKD-EPI formula has not been extensively validated. Use of the eGFR is not recommended in the following populations: Individuals with unstable creatinine concentrations, including patients and those with serious co-morbid conditions. Patients with extremes in muscle mass or diet. The data above are obtained from the [employer] ( [employer]) which additionally recommends that when the eGFR is used in patients with extremes of body mass index for purposesof drug dosing, the eGFR should be multiplied by the estimated BMI.5Result Comment: The eGFR is calculated using the CKD-EPI formula. In most young, healthy individualsthe eGFR will be >90 mL/ min/1.73m2. The eGFR declines with age. An eGFR of 60-89 may be normal in some populations, particularly the elderly, for whom the CKD-EPI formula has not been extensively validated. Use of the eGFR is not recommended in the following populations: Individuals with unstable creatinine concentrations, including patients and those with serious co-morbid conditions. Patients with extremes in muscle mass or diet. The data above are obtained from the [employer] ( [employer]) which additionally recommends that when the eGFR is used in patients with extremes of body mass index for purposesof drug dosing, the eGFR should be multiplied by the estimated BMI.6Result Comment: The eGFR is calculated using the CKD-EPI formula. In most young, healthy individualsthe eGFR will be >90 mL/ min/1.73m2. The eGFR declines with age. An eGFR of 60-89 may be normal in some populations, particularly the elderly, for whom the CKD-EPI formula has not been extensively validated. Use of the eGFR is not recommended in the following populations: Individuals with unstable creatinine concentrations, including patients and those with serious co-morbid conditions. Patients with extremes in muscle mass or diet. The data above are obtained from the [employer] ( [employer]) which additionally recommends that when the eGFR is used in patients with extremes of body mass index for purposesof drug dosing, the eGFR should be multiplied by the estimated BMI.7Interpretive Data: Adult reference range values reflect the clinical guidelines of the [employer] [employer].8Interpretive Data: Adult reference range values reflect the clinical guidelines of the [place] [employer].9Interpretive Data: Adult reference range values reflect the clinical guidelines of the [place] [employer].HEMATOLOGY Most recent to oldest 1 2 3 [Reference Range]: WBC [3.7-10.4 K/CMM] 10.9 K/CMM 13.8 K/CMM 16.3 K/CMM *HI* *HI* *HI* (10/08/2012 03:57:00) (10/07/2012 03:25:00) (10/06/2012 04:25:00) RBC [4.20-5.40 M/CMM] 4.35 M/CMM 4.10 M/CMM 4.28 M/CMM (10/08/2012 03:57:00) *LOW* (10/06/2012 04:25:00) (10/07/2012 03:25:00) Hgb [12.0-16.0 g/dL] 10.4 g/dL 9.9 g/dL 10.3 g/dL *LOW* *LOW* *LOW* (10/08/2012 03:57:00) (10/07/2012 03:25:00) (10/06/2012 04:25:00) Hct [36.0-48.0 %] 32.7 % 31.0 % 32.6 % *LOW* *LOW* *LOW* (10/08/2012 03:57:00) (10/07/2012 03:25:00) (10/06/2012 04:25:00) MCV [81.0-99.0 fL] 75.2 fL 75.7 fL 76.1 fL *LOW* *LOW* *LOW* (10/08/2012 03:57:00) (10/07/2012 03:25:00) (10/06/2012 04:25:00) MCH [27.0-31.0 pg] 23.9 pg 24.1 pg 24.0 pg *LOW* *LOW* *LOW* (10/08/2012 03:57:00) (10/07/2012 03:25:00) (10/06/2012 04:25:00) MCHC [32.0-36.0 g/dL] 31.8 g/dL 31.8 g/dL 31.5 g/dL *LOW* *LOW* *LOW* (10/08/2012 03:57:00) (10/07/2012 03:25:00) (10/06/2012 04:25:00) RDW [11.5-14.5 %] 16.9 % 16.8 % 17.2 % *HI* *HI* *HI* (10/08/2012 03:57:00) (10/07/2012 03:25:00) (10/06/2012 04:25:00) Platelet [133-450 K/CMM] 218 K/CMM 222 K/CMM 248 K/CMM (10/08/2012 03:57:00) (10/07/2012 03:25:00) (10/06/2012 04:25:00) MPV [7.4-10.4 fL] 9.7 fL 9.1 fL 9.5 fL (10/08/2012 03:57:00) (10/07/2012 03:25:00) (10/06/2012 04:25:00) Segs [45.0-75.0 %] 55.7 % 69.1 % 81.7 % (10/08/2012 03:57:00) (10/07/2012 03:25:00) *HI* (10/06/2012 04:25:00) Lymphocytes [20.0-40.0 %] 31.3 % 20.8 % 11.3 % (10/08/2012 03:57:00) (10/07/2012 03:25:00) *LOW* (10/06/2012 04:25:00) Monocytes [2.0-12.0 %] 10.0 % 8.8 % 6.7 % (10/08/2012 03:57:00) (10/07/2012 03:25:00) (10/06/2012 04:25:00) Eosinophils [0.0-4.0 %] 2.5 % 1.0 % 0.1 % (10/08/2012 03:57:00) (10/07/2012 03:25:00) (10/06/2012 04:25:00) Basophils [0.0-1.0 %] 0.5 % 0.3 % 0.2 % (10/08/2012 03:57:00) (10/07/2012 03:25:00) (10/06/2012 04:25:00) Segs-Bands # [1.5-8.1 6.1 K/CMM 9.6 K/CMM 13.3 K/CMM K/CMM] (10/08/2012 03:57:00) *HI* *HI* (10/07/2012 03:25:00) (10/06/2012 04:25:00) Lymphocytes # [1.0-5.5 3.4 K/CMM 2.9 K/CMM 1.8 K/CMM K/CMM] (10/08/2012 03:57:00) (10/07/2012 03:25:00) (10/06/2012 04:25:00) Monocytes # [0.0-0.8 K/CMM] 1.1 K/CMM 1.2 K/CMM 1.1 K/CMM *HI* *HI* *HI* (10/08/2012 03:57:00) (10/07/2012 03:25:00) (10/06/2012 04:25:00) Eosinophils # [0.0-0.5 0.3 K/CMM 0.1 K/CMM 0.1 K/CMM K/CMM] (10/08/2012 03:57:00) (10/07/2012 03:25:00) (10/05/2012 02:48:00) Basophils # [0.0-0.2 K/CMM] 0.1 K/CMM 0.1 K/CMM 0.1 K/CMM (10/08/2012 03:57:00) (10/05/2012 02:48:00) (09/23/2012 12:35:00) Hypochrom [None Seen] Slight (09/23/2012 12:35:00) Microcyte [None Seen] 1+ 1+ 1+ *ABN* *ABN* *ABN* (10/08/2012 03:57:00) (10/07/2012 03:25:00) (10/06/2012 04:25:00) Elliptocyte [None Seen] Slight *ABN* (09/23/2012 12:35:00) Plt Morph Normal (09/23/2012 12:35:00) Microbiology Reports PROCEDURE:Culture: Urine STATUS: Auth (Verified) BODY SITE: COLLECTED DATE/TIME: 10/06/2012 11:42:00 SOURCE: Urine, Clean Catch FREE TEXT SOURCE: FINAL REPORTS Final [id number] - 50,000 CFU/mL Enterococcus SpeciesPRELIMINARY REPORTS Preliminary [id number] - 50,000 CFU/ mL Enterococcus Species ; Sensitivity PendingSUSCEPTIBILITY REPORT ENTERO Antibiotic INTERP. VDIL Ampicillin S Levofloxacin S Nitrofurantoin S Tetracycline R Vancomycin S Procedures Procedures Date Related Diagnosis section Cholecystectomy 1 Hand repair 2 Tonsillectomy 3 , [id number]
--- OUTSIDE RECORDS SUMMARY | 2018-02-13 16:09 | XMS REPORT | CCD ---
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 Medications Medication Instructions Start Date End Date Status heparin 5000 units/mL 7,500 unit, 1.5 mL, 11/06/2012 11/11/2012 Discontinued injectable solution Route: SUB-Q, Drug form: INJ, Q12H, Dosing Weight 104.545, kg, Start date: 11/06/12 9:00:00, Stop date: 12/05/12 21:00:00 morphine Sulfate 1 mg, 0.5 mL, Route: IV, 11/09/2012 11/09/2012 Completed Drug form: INJ, ONCE, Dosing Weight 100, kg, Start date: 11/09/12 5:28:00, Stop date: 11/09/12 5:28:00 Reglan 10 mg oral tablet 10 mg, 1 tab, Route: PO, 11/14/2012 11/14/2012 Discontinued Drug form: TAB, TID-Before Meals, Dosing Weight 100, kg, Start date: 11/14/12 11:30:00, Duration: 30 day, Stop date: 12/14/12 7:30:00 insulin detemir 16 unit, 0.16 mL, Route: 11/10/2012 11/10/2012 Completed SUB-Q, Drug form: INJ, ONCE, Dosing Weight 100, kg, Start date: 11/10/12 0:20:00, Stop date: 11/10/12 0:20:00 labetalol 20 mg, 4 mL, Route: IVP, 11/06/2012 11/06/2012 Completed Drug form: INJ, ONCE, Dosing Weight 100, kg, Start date: 11/06/12 0:25:00, Stop date: 11/06/12 0:25:00 Benadryl 25 mg, 0.5 mL, Route: 11/06/2012 11/14/2012 Discontinued IV, Drug form: INJ, Q4H, Dosing Weight 100, kg, PRN as needed for nausea/vomiting, Start date: 11/06/12 1:44:00, Duration: 30 day, Stop date: 12/06/12 1:43:00 Phenergan 12.5 mg, 0.5 mL, Route: 11/06/2012 11/14/2012 Discontinued IVPB, Drug form: INJ, Q6H, Dosing Weight 100, kg, PRN Nausea & Vomiting, Start date: 11/06/12 1:43:00, Stop date: 12/06/12 1:42:00 promethazine 25 mg oral 25 mg, 1 tab, Q4H, PRN, 11/05/2012 Ordered tablet as needed for nausea/vomiting, Substitution Allowed aspirin 81 mg, Daily, 11/05/2012 Ordered Substitution Allowed magnesium sulfate 2 gm, 50 mL, Route: 11/13/2012 11/13/2012 Completed IVPB, Drug form: INJ, Q2H, Dosing Weight 100, kg, Total dose=4 gm, Start date: 11/13/12 10:00:00, Duration: 2 doses or times, Stop date: 11/13/12 12:00:00 lisinopril 20 mg oral 20 mg, 1 tab, PO, Daily, 11/05/2012 Ordered tablet 30 tab, Substitution Allowed, TAB Zofran 4 mg, 1 tab, Route: PO, 11/14/2012 11/14/2012 Discontinued Drug form: TAB, Q8H, Dosing Weight 100, kg, Start date: 11/14/12 16:00:00, Duration: 30 day, Stop date: 12/14/12 8:00:00 insulin aspart 10 unit, 0.1 mL, Route: 11/06/2012 11/06/2012 Completed SUB-Q, Drug form: SOLN, ONCE, Dosing Weight 100, kg, Start date: 11/06/12 9:43:00, Stop date: 11/06/12 9:43:00 magnesium oxide 400 mg 400 mg, 1 tab, PO, 11/05/2012 Ordered oral tablet Daily, 10 tab, Substitution Allowed, TAB metoprolol 100 mg oral 100 mg, 1 tab, PO, 11/05/2012 Ordered tablet, extended release Daily, 30 tab, Substitution Allowed potassium chloride 20 mEq, 100 mL, Route: IVPB, Drug form: INJ, ONCE, Dosing Weight 100, kg, Total dose=20mEq, Start date: 11/13/12 7:58:00, Duration: 1 doses or times, Stop date: 11/13/12 7:58:00, For K=3.5 - 3.9 mEq/L 11/13/2012 11/13/2012 Completed For K=3.5 - 3.9 mEq/L potassium chloride 40 mEq, 2 tab, Route: PO, Drug form: ERTAB, ONCE, Dosing Weight 100, kg, Start date: 11/13/12 7:58:00, Duration: 1 doses or times, Stop date: 11/13/12 7:58:00, For K=3 - 3.4 mEq/L 11/13/2012 11/13/2012 Completed For K=3 - 3.4 mEq/L Zofran 8 mg oral tablet 8 mg, 1 tab, Q8H, PRN, 11/05/2012 11/14/2012 Discontinued as needed for nausea/vomiting, Substitution Allowed NIFEdipine 90 mg oral 90 mg, 1 tab, PO, Daily, 11/05/2012 Ordered tablet, extended release 30 tab, Substitution Allowed, ERTAB prasugrel 10 mg oral 10 mg, 1 tab, PO, Daily, 11/05/2012 Ordered tablet 30 tab, Substitution Allowed, TAB carvedilol 12.5 mg, 1 tab, Route: 11/05/2012 11/05/2012 Completed PO, Drug form: TAB, ONCE, Dosing Weight 104.545, kg, Start date: 11/05/12 19:20:00, Stop date: 11/05/12 19:20:00 simvastatin 40 mg oral 40 mg, 1 tab, PO, Daily, 11/05/2012 12/05/2012 Ordered tablet 30 tab, Substitution Allowed, Maintenance calcium gluconate + Sodium 1,000 mg, 10 mL, Route: 11/13/2012 11/13/2012 Completed Chloride 0.9% IV 50 mL IVPB, ONCE, Dosing Weight 100, kg, Start date: 11/13/12 7:56:00, Stop date: 11/13/12 7:56:00 Levemir FlexPen 15 unit, 0.15 mL, Route: 11/11/2012 11/14/2012 Discontinued SUB-Q, Drug form: INJ, Daily, Dosing Weight 100, kg, Start date: 11/11/12 10:00:00, Stop date: 12/11/12 9:00:00 insulin aspart 2 unit, 0.02 mL, Route: 11/07/2012 11/08/2012 Discontinued SUB-Q, Drug form: SOLN, TID-Before Meals, Dosing Weight 100, kg, PRN Blood Glucose Results, Start date: 11/07/12 18:47:00, Duration: 30 day, Stop date: 12/07/12 18:46:00 insulin aspart 6 unit, 0.06 mL, Route: 11/07/2012 11/08/2012 Discontinued SUB-Q, Drug form: SOLN, TID-Before Meals, Dosing Weight 100, kg, PRN Blood Glucose Results, Start date: 11/07/12 18:47:00, Duration: 30 day, Stop date: 12/07/12 18:46:00 insulin aspart 4 unit, 0.04 mL, Route: 11/07/2012 11/08/2012 Discontinued SUB-Q, Drug form: SOLN, TID-Before Meals, Dosing Weight 100, kg, PRN Blood Glucose Results, Start date: 11/07/12 18:47:00, Duration: 30 day, Stop date: 12/07/12 18:46:00 insulin aspart 8 unit, 0.08 mL, Route: 11/07/2012 11/08/2012 Discontinued SUB-Q, Drug form: SOLN, TID-Before Meals, Dosing Weight 100, kg, PRN Blood Glucose Results, Start date: 11/07/12 18:47:00, Duration: 30 day, Stop date: 12/07/12 18:46:00 insulin aspart 10 unit, 0.1 mL, Route: 11/07/2012 11/08/2012 Discontinued SUB-Q, Drug form: SOLN, TID-Before Meals, Dosing Weight 100, kg, PRN Blood Glucose Results, Start date: 11/07/12 18:47:00, Duration: 30 day, Stop date: 12/07/12 18:46:00 insulin detemir 20 unit, 0.2 mL, Route: 11/11/2012 11/11/2012 Discontinued SUB-Q, Drug form: INJ, Daily, Dosing Weight 100, kg, Start date: 11/11/12 9:00:00, Stop date: 12/10/12 9:00:00 Reglan 10 mg, Route: IVP, Q6H, 11/12/2012 11/12/2012 Discontinued Dosing Weight 100, kg, PRN Nausea & Vomiting, Start date: 11/12/12 12:35:00, Duration: 30 day, Stop date: 12/12/12 12:34:00 Cymbalta 60 mg, Daily, 11/05/2012 Ordered Substitution Allowed insulin aspart 7 unit, 0.07 mL, Route: 11/09/2012 11/09/2012 Discontinued SUB-Q, Drug form: SOLN, ONCE, Dosing Weight 100, kg, Start date: 11/09/12 13:24:00, Stop date: 11/09/12 13:24:00 Zofran 4 mg, 2 mL, Route: IV, 11/11/2012 11/14/2012 Discontinued Drug form: INJ, Q8H, Dosing Weight 100, kg, Start date: 11/11/12 0:00:00, Duration: 30 day, Stop date: 12/10/12 16:00:00 Phenergan 12.5 mg, 0.5 mL, Route: 11/10/2012 11/14/2012 Discontinued IM, Drug form: INJ, PRN, Dosing Weight 100, kg, PRN as needed for nausea/vomiting, Start date: 11/10/12 10:00:00, Duration: 30 day, Stop date: 12/10/12 10:59:00 heparin 7,500 unit, 1.5 mL, 11/11/2012 11/14/2012 Discontinued Route: SUB-Q, Drug form: INJ, Q8H, Start date: 11/11/12 18:00:00, Duration: 30 day, Stop date: 12/11/12 16:00:00 tramadol 50 mg oral tablet 50 mg, 1 tab, Route: PO, 11/05/2012 11/14/2012 Discontinued Drug form: TAB, Q4H, Dosing Weight 100, kg, PRN For Pain, Start date: 11/05/12 22:39:00, Duration: 30 day, Stop date: 12/05/12 22:38:00 simvastatin 40 mg, 1 tab, Route: PO, 11/05/2012 11/14/2012 Discontinued Drug form: TAB, Bedtime, Dosing Weight 100, kg, Start date: 11/05/12 23:00:00, Duration: 30 day, Stop date: 12/05/12 21:00:00 promethazine 25 mg, 1 tab, Route: PO, 11/05/2012 11/06/2012 Discontinued Drug form: TAB, Q6H, Dosing Weight 100, kg, PRN as needed for nausea/vomiting, Start date: 11/05/12 22:39:00, Duration: 30 day, Stop date: 12/05/12 22:38:00 prasugrel 10 mg, 1 tab, Route: PO, 11/06/2012 11/14/2012 Discontinued Drug form: TAB, Daily, Dosing Weight 100, kg, Start date: 11/06/12 9:00:00, Duration: 30 day, Stop date: 12/05/12 9:00:00 NIFEdipine 90 mg, 1 tab, Route: PO, 11/06/2012 11/14/2012 Discontinued Drug form: ERTAB, Daily, Dosing Weight 100, kg, Start date: 11/06/12 9:00:00, Duration: 30 day, Stop date: 12/05/12 9:00:00 Toprol-XL 100 mg oral 100 mg, 1 tab, Route: 11/06/2012 11/14/2012 Discontinued tablet, extended release PO, Drug form: ERTAB, Daily, Start date: 11/06/12 9:00:00, Duration: 30 day, Stop date: 12/05/12 9:00:00 magnesium oxide 400 mg, 1 tab, Route: 11/06/2012 11/14/2012 Discontinued PO, Drug form: TAB, Daily, Dosing Weight 100, kg, Start date: 11/06/12 9:00:00, Duration: 30 day, Stop date: 12/05/12 9:00:00 lisinopril 20 mg, 1 tab, Route: PO, 11/05/2012 11/14/2012 Discontinued Drug form: TAB, Q12H, Dosing Weight 100, kg, Start date: 11/05/12 23:00:00, Duration: 30 day, Stop date: 12/05/12 21:00:00 Zofran ODT 4 mg, 1 tab, Route: PO, 11/10/2012 11/10/2012 Discontinued Drug form: TABDIS, Q8H, Dosing Weight 100, kg, PRN Nausea, Start date: 11/10/12 11:04:00, Duration: 30 day, Stop date: 12/10/12 11:03:00 adenosine 84 mg, Route: IVP, ONCE, 11/06/2012 11/06/2012 Deleted Dosing Weight 100, kg, Priority: Routine, Start date: 11/06/12 10:20:00, Stop date: 11/06/12 10:20:00 NovoLog 6 unit, 0.06 mL, Route: 11/09/2012 11/09/2012 Discontinued SUB-Q, Drug form: SOLN, TID-Before Meals, Dosing Weight 100, kg, Start date: 11/09/12 16:30:00, Duration: 30 day, Stop date: 12/09/12 11:30:00 insulin aspart 10 unit, 0.1 mL, Route: 11/06/2012 11/06/2012 Completed SUB-Q, Drug form: SOLN, ONCE, Dosing Weight 100, kg, Start date: 11/06/12 13:32:00, Stop date: 11/06/12 13:32:00 normal saline 0.9% IV 1,000 mL, Rate: 100 11/10/2012 11/14/2012 Discontinued 1,000 mL ml/hr, Infuse over: 10 hr, Route: IV, kg, Total Volume: 1,000, Start date: 11/10/12 20:17:00, Duration: 30 day, Stop date: 12/10/12 20:16:00 insulin detemir 12 unit, 0.12 mL, Route: 11/08/2012 11/14/2012 Discontinued SUB-Q, Drug form: INJ, Bedtime, Dosing Weight 100, kg, Start date: 11/08/12 21:00:00, Stop date: 12/07/12 21:00:00 insulin detemir 20 unit, 0.2 mL, Route: 11/09/2012 11/11/2012 Discontinued SUB-Q, Drug form: INJ, Daily, Dosing Weight 100, kg, Start date: 11/09/12 9:00:00, Duration: 30 day, Stop date: 12/08/12 9:00:00 Sodium Chloride 0.9% 1,000 mL, Rate: 1,000 ml/hr, Infuse over: 1 hr, Route: IV , kg, Total Volume: 1,000, Priority: STAT, Start date: 11/10/12 20:17:00, Duration: 1 doses or times, Stop date: 11/10/12 21:16:00, Bolus Dose 201211/10/2012 Completed (Bolus) IV 1,000 mL Bolus Dose Insulin regular 10 unit, 0.1 mL, Route: 11/06/2012 11/06/2012 Completed SUB-Q, Drug form: SOLN, ONCE, Dosing Weight 100, kg, Start date: 11/06/12 9:47:00, Stop date: 11/06/12 9:47:00 magnesium sulfate 2 gm, Route: IVPB, Drug form: SOLN, ONCE, Dosing Weight 100 , kg, Start date: 11/07/12 7:42:00, Duration: 1 doses or times, Stop date: 11/07 7:42:00, For Mg=1.8 - 2 mg/dL 11/07/2012 11/07/2012 Discontinued For Mg=1.8 - 2 mg/dL magnesium sulfate 2 gm, 50 mL, Route: IVPB, Drug form: INJ, Q2H, Dosing Weight 100, kg, Start date: 11/07/12 8:00:00, Duration: 2 doses or times, Stop date: 11/07/12 10:00:00, For Mg=1.5 - 1.7 mg/dL 11/07/2012 11/07/2012 Completed For Mg=1.5 - 1.7 mg/dL Effient 10 mg, 1 tab, Route: PO, 11/05/2012 11/05/2012 Completed Drug form: TAB, ONCE, Dosing Weight 104.545, kg, Start date: 11/05/12 19:16:00, Stop date: 11/05/12 19:16:00 magnesium sulfate 2 gm, 50 mL, Route: 11/11/2012 11/11/2012 Completed IVPB, Drug form: INJ, ONCE, Dosing Weight 100, kg, Total dose=2 gm, Start date: 11/11/12 9:04:00, Duration: 1 doses or times, Stop date: 11/11/12 9:04:00 ondansetron 4 mg, 2 mL, Route: IVP, 11/05/2012 11/05/2012 Completed Drug form: INJ, ONCE, Dosing Weight 104.545, kg, Priority: STAT, Start date: 11/05/12 19:14:00, Stop date: 11/05/12 19:14:00 Insulin regular 9 unit, 0.09 mL, Route: 11/06/2012 11/07/2012 Discontinued SUB-Q, Drug form: SOLN, TID-Before Meals, Dosing Weight 100, kg, PRN Blood Glucose Results, Start date: 11/06/12 9:12:00, Duration: 30 day, Stop date: 12/06/12 9:11:00 Insulin regular 3 unit, 0.03 mL, Route: 11/06/2012 11/07/2012 Discontinued SUB-Q, Drug form: SOLN, TID-Before Meals, Dosing Weight 100, kg, PRN Blood Glucose Results, Start date: 11/06/12 9:12:00, Duration: 30 day, Stop date: 12/06/12 9:11:00 Insulin regular 6 unit, 0.06 mL, Route: 11/06/2012 11/07/2012 Discontinued SUB-Q, Drug form: SOLN, TID-Before Meals, Dosing Weight 100, kg, PRN Blood Glucose Results, Start date: 11/06/12 9:12:00, Duration: 30 day, Stop date: 12/06/12 9:11:00 Insulin regular 12 unit, 0.12 mL, Route: 11/06/2012 11/07/2012 Discontinued SUB-Q, Drug form: SOLN, TID-Before Meals, Dosing Weight 100, kg, PRN Blood Glucose Results, Start date: 11/06/12 9:12:00, Duration: 30 day, Stop date: 12/06/12 9:11:00 Insulin regular 15 unit, 0.15 mL, Route: 11/06/2012 11/07/2012 Discontinued SUB-Q, Drug form: SOLN, TID-Before Meals, Dosing Weight 100, kg, PRN Blood Glucose Results, Start date: 11/06/12 9:12:00, Duration: 30 day, Stop date: 12/06/12 9:11:00 glucagon 1 mg, Route: IM, Drug 11/06/2012 11/14/2012 Discontinued form: PDR/INJ, PRN, Dosing Weight 100, kg, PRN Blood Glucose Results, Start date: 11/06/12 9:12:00, Duration: 30 day, Stop date: 12/06/12 10:11:00 Dextrose 50% Syringe 12.5 gm, 25 mL, Route: 11/06/2012 11/14/2012 Discontinued IVP, Drug Form: INJ, Dosing Weight 100, kg, PRN, PRN Blood Glucose Results, Start date: 11/06/12 9:12:00, Duration: 30 day, Stop date: 12/06/12 10:11:00 Dextrose 50% Syringe 25 gm, 50 mL, Route: 11/06/2012 11/14/2012 Discontinued IVP, Drug Form: INJ, Dosing Weight 100, kg, PRN, PRN Blood Glucose Results, Start date: 11/06/12 9:12:00, Duration: 30 day, Stop date: 12/06/12 10:11:00 aspirin 324 mg, 4 tab, Route: 11/05/2012 11/05/2012 Completed PO, Drug form: CHEWTAB, ONCE, Dosing Weight 104.545, kg, Priority: STAT, Start date: 11/05/12 19:14:00, Stop date: 11/05/12 19:14:00 Saline Flush 0.9% 5 mL, Route: IVP, Drug Form: INJ, Dosing Weight 104.545, kg , Q8H, PRN Line Flush, Start date: 11/05/12 19:14:00, Duration: 30 day, Stop date: 12/05/12 19:13:00, Administer at least once every 8 hours 11/05/201204/2013 Discontinued Administer at least once every 8 hours Phenergan 12.5 mg, Route: IVPB, 11/05/2012 11/05/2012 Completed ONCE, Dosing Weight 104.545, kg, Priority: STAT, Start date: 11/05/12 22:05:00, Stop date: 11/05/12 22:05:00 Reglan 10 mg oral tablet 10 mg, 1 tab, PO, 11/14/2012 11/28/2012 Ordered TID-Before Meals, PRN, 42 tab, nausea, Substitution Allowed, TAB metoclopramide 10 mg, 2 mL, Route: IVP, 11/06/2012 11/12/2012 Discontinued Drug form: INJ, Q6H, Dosing Weight 100, kg, PRN Nausea & Vomiting, Start date: 11/06/12 1:49:00, Duration: 30 day, Stop date: 12/06/12 1:48:00 Powell 5/325 oral tablet 1 tab, PO, Q6H, PRN, 10 11/14/2012 Ordered tab, Pain, Substitution Allowed, Maintenance, TAB Rocephin 1 gm, Route: IVPB, Drug 11/08/2012 11/08/2012 Completed form: PDR/INJ, ONCE, Dosing Weight 100, kg, Start date: 11/08/12 13:11:00, Stop date: 11/08/12 13:11:00 insulin detemir 20 unit, 0.2 mL, Route: 11/05/2012 11/08/2012 Discontinued SUB-Q, Drug form: INJ, Q12H, Dosing Weight 100, kg, Start date: 11/05/12 23:00:00, Stop date: 12/05/12 21:00:00 insulin aspart 4 unit, 0.04 mL, Route: 11/06/2012 11/14/2012 Discontinued SUB-Q, Drug form: SOLN, TID-Before Meals, Dosing Weight 100, kg, Start date: 11/06/12 7:30:00, Duration: 30 day, Stop date: 12/05/12 16:30:00 aspirin 81 mg tablet, 81 mg, 1 tab, Route: PO, 11/06/2012 11/14/2012 Discontinued enteric coated Drug form: ECTAB, Daily, Dosing Weight 100, kg, Start date: 11/06/12 9:00:00, Duration: 30 day, Stop date: 12/05/12 9:00:00 Cymbalta 60 mg, 2 cap, Route: PO, 11/06/2012 11/14/2012 Discontinued Drug form: DRC, Daily, Dosing Weight 100, kg, Start date: 11/06/12 9:00:00, Duration: 30 day, Stop date: 12/05/12 9:00:00 ampicillin + Sodium 1,500 mg, Route: IVPB, 11/08/2012 11/11/2012 Discontinued Chloride 0.9% IV 100 mL Drug form: PDR/INJ, ABXQ6H, Dosing Weight 100, kg, Start date: 11/08/12 18:00:00, Duration: 30 day, Stop date: 12/08/12 12:00:00 Sodium Chloride 0.9% 1,000 mL, Rate: 1,000 ml/hr, Infuse over: 1 hr, Route: IV , kg, Total Volume: 1,000, Priority: STAT, Start date: 11/06/12 9:06:00, Duration: 1 doses or times, Stop date: 11/06/12 10:05:00, Bolus Dose 201211/06/2012 Discontinued (Bolus) IV 1,000 mL Bolus Dose insulin aspart 2 unit, 0.02 mL, Route: 11/08/2012 11/14/2012 Discontinued SUB-Q, Drug form: SOLN, TID-Before Meals, Dosing Weight 100, kg, PRN Blood Glucose Results, Start date: 11/08/12 10:45:00, Duration: 30 day, Stop date: 12/08/12 10:44:00 insulin aspart 5 unit, 0.05 mL, Route: 11/08/2012 11/14/2012 Discontinued SUB-Q, Drug form: SOLN, TID-Before Meals, Dosing Weight 100, kg, PRN Blood Glucose Results, Start date: 11/08/12 10:45:00, Duration: 30 day, Stop date: 12/08/12 10:44:00 insulin aspart 4 unit, 0.04 mL, Route: 11/08/2012 11/14/2012 Discontinued SUB-Q, Drug form: SOLN, TID-Before Meals, Dosing Weight 100, kg, PRN Blood Glucose Results, Start date: 11/08/12 10:45:00, Duration: 30 day, Stop date: 12/08/12 10:44:00 insulin aspart 3 unit, 0.03 mL, Route: 11/08/2012 11/14/2012 Discontinued SUB-Q, Drug form: SOLN, TID-Before Meals, Dosing Weight 100, kg, PRN Blood Glucose Results, Start date: 11/08/12 10:45:00, Duration: 30 day, Stop date: 12/08/12 10:44:00 insulin aspart 1 unit, 0.01 mL, Route: 11/08/2012 11/14/2012 Discontinued SUB-Q, Drug form: SOLN, TID-Before Meals, Dosing Weight 100, kg, PRN Blood Glucose Results, Start date: 11/08/12 10:45:00, Duration: 30 day, Stop date: 12/08/12 10:44:00 Powell 5/325 oral tablet 1 tab, Route: PO, Drug 11/12/2012 11/14/2012 Discontinued Form: TAB, Dosing Weight 100, kg, Q6H, PRN Pain, Start date: 11/12/12 16:07:00, Duration: 30 day, Stop date: 12/12/12 16:06:00 ondansetron 8 mg oral 8 mg, 1 tab, PO, Q8H, 11/14/2012 Ordered tablet, disintegrating PRN, 60 tab, 1, 1, Nausea, Substitution Allowed, TABDIS insulin detemir 10 unit, 0.1 mL, Route: 11/10/2012 11/10/2012 Completed SUB-Q, Drug form: INJ, ONCE, Dosing Weight 100, kg, Priority: NOW, Start date: 11/10/12 11:40:00, Stop date: 11/10/12 11:40:00 morphine Sulfate 2 mg, 1 mL, Route: IVP, 11/08/2012 11/08/2012 Completed Drug form: INJ, ONCE, Dosing Weight 100, kg, Start date: 11/08/12 18:34:00, Stop date: 11/08/12 18:34:00 insulin detemir 15 unit, Route: SUB-Q, 11/12/2012 11/12/2012 Completed ONCE, Dosing Weight 100, kg, Priority: NOW, Start date: 11/12/12 10:38:00, Stop date: 11/12/12 10:38:00 Toradol 15 mg/mL 15 mg, 1 mL, Route: IV, 11/11/2012 11/11/2012 Completed injectable solution Drug form: INJ, ONCE, Dosing Weight 100, kg, Start date: 11/11/12 0:56:00, Stop date: 11/11/12 0:56:00 calcium gluconate + Sodium 2,000 mg, 20 mL, Route: 11/14/2012 11/14/2012 Completed Chloride 0.9% IV 100 mL IVPB, Drug form: INJ, Q2H, Dosing Weight 100, kg, Total ovmg=8723 mg, Start date: 11/14/12 8:00:00, Duration: 2 doses or times, Stop date: 11/14/12 10:00:00 Phenergan 12.5 mg, 0.5 mL, Route: 11/05/2012 11/05/2012 Completed IVPB, Drug form: INJ, ONCE, Dosing Weight 104.545, kg, Priority: STAT, Start date: 11/05/12 21:08:00, Stop date: 11/05/12 21:08:00 Benadryl 25 mg, 1 cap, Route: PO, 11/06/2012 11/06/2012 Discontinued Drug form: CAP, TID, Dosing Weight 100, kg, PRN Nausea, Start date: 11/06/12 0:31:00, Duration: 30 day, Stop date: 12/06/12 0:30:00 ciprofloxacin 500 mg, 1 tab, Route: 11/08/2012 11/08/2012 Canceled PO, Drug form: TAB, [id number], Dosing Weight 100, kg, Start date: 11/08/12 17:00:00, Duration: 30 day, Stop date: 12/08/12 5:00:00 Reglan 10 mg, 2 mL, Route: IVP, 11/12/2012 11/14/2012 Discontinued Drug form: INJ, Before Meals & Bedtime, Dosing Weight 100, kg, Start date: 11/12/12 16:30:00, Duration: 30 day, Stop date: 12/12/12 11:30:00 insulin detemir 100 12 unit, 0.12 mL, SUB-Q, 11/14/2012 12/14/2012 Ordered units/mL subcutaneous Bedtime, 4 mL, solution Substitution Allowed, INJ insulin detemir 100 15 unit, 0.15 mL, SUB-Q, 11/14/2012 12/14/2012 Ordered units/mL subcutaneous Daily, 5 mL, solution Substitution Allowed, INJ Phenergan 25 mg, 1 tab, Route: PO, 11/05/2012 11/05/2012 Discontinued Drug form: TAB, Q4H, Dosing Weight 104.545, kg, PRN Nausea & Vomiting, Start date: 11/05/12 22:33:00, Duration: 30 day, Stop date: 12/05/12 22:32:00 Zofran 8 mg, 4 mL, Route: IV, 11/05/2012 11/10/2012 Discontinued Drug form: INJ, Q8H, Dosing Weight 104.545, kg, PRN Nausea, Start date: 11/05/12 22:32:00, Duration: 30 day, Stop date: 12/05/12 22:31:00 Lactated Ringers (Bolus) 1,000 mL, Rate: 1,000 11/06/2012 11/06/2012 Completed IV 1,000 mL ml/hr, Infuse over: 1 hr, Route: IV, kg, Total Volume: 1,000, Bolus Dose, Priority: STAT, Start date: 11/06/12 9:14:00, Duration: 1 doses or times, Stop date: 11/06/12 10:13:00 Protonix 40 mg, Route: IVP, Drug 11/07/2012 11/14/2012 Discontinued form: INJ, Before Breakfast, Dosing Weight 100, kg, Start date: 11/07/12 7:30:00, Duration: 30 day, Stop date: 12/06/12 7:30:00 Saline Flush 0.9% 5 ml, Route: IVP, Drug 11/06/2012 11/13/2012 Discontinued Form: INJ, Dosing Weight 104.545, kg, Q12H, Start date: 11/06/12 9:00:00, Duration: 30 day, Stop date: 12/05/12 21:00:00 Saline Flush 0.9% 5 ml, Route: IVP, Drug 11/05/2012 11/13/2012 Discontinued Form: INJ, Dosing Weight 104.545, kg, PRN, PRN Line Flush, Start date: 11/05/12 22:14:00, Duration: 30 day, Stop date: 12/05/12 23:13:00 Sodium Chloride 0.9% 500 mL, Rate: 2,000 11/05/2012 11/05/2012 Completed (Bolus) IV 500 mL ml/hr, Infuse over: 15 minutes, Route: IV, kg, Total Volume: 500, Priority: STAT, Start date: 11/05/12 22:14:00, Duration: 1 doses or times, Stop date: 11/05/12 22:28:00 nitroglycerin SL Tab 0.4 mg, 1 tab, Route: 11/05/2012 11/12/2012 Completed SL, Drug form: TAB, Q5Min, Dosing Weight 104.545, kg, PRN Chest Pain, Start date: 11/05/12 22:14:00, Duration: 3 doses or times, Stop date: Limited # of times Omnipaque 350mg/ml 118 mL, Route: IVP, Drug Form: SOLN, Dosing Weight 100, kg , ONCALL, STAT, Start date: 11/13/12 9:33:00, Duration: 1 doses or times, Stop date: 11/14/12 0:00:00, Weight=95 - 109kg -- "To be infused by Radiology Staff ONLY" 11/13/2012 11/13/2012 Completed Weight=95 - 109kg -- "To be infused by Radiology Staff ONLY" Vital Signs Most recent to oldest 1 2 3 [Reference Range]: Height 162.56 cm 162.56 cm 162.56 cm (11/05/2012 23:04:00) (11/05/2012 22:35:00) (11/05/2012 18:45:00) Temperature Oral 98.0 DegF 98.0 DegF 98.4 DegF [96.4-99.1 DegF] (11/14/2012 18:00:00) (11/14/2012 08:00:00) (11/14/2012 04: 00:00) Systolic Blood Pressure 121 mmHg 103 mmHg 136 mmHg [90-140 mmHg] (11/14/2012 18:00:00) (11/14/2012 08:00:00) (11/14/2012 04:00: 00) Diastolic Blood Pressure 58 mmHg 54 mmHg 68 mmHg [60-90 mmHg] *LOW* *LOW* (11/14/2012 04:00:00) (11/14/2012 18:00:00) (11/14/2012 08:00:00) Respiratory Rate [14-20 20 BRMIN 20 BRMIN 20 BRMIN BRMIN] (11/14/2012 18:00:00) (11/14/2012 08:00:00) (11/14/2012 04:00:00) Peripheral Pulse Rate 84 bpm 83 bpm 79 bpm [60-100 bpm] (11/14/2012 18:00:00) (11/14/2012 08:00:00) (11/14/2012 04:00: 00) Weight 100 kg 100 kg 104.545 kg (11/05/2012 23:04:00) (11/05/2012 22:35:00) (11/05/2012 18:45:00) Results INFECTIOUS DISEASES Most recent to [Reference Range]: 1 2 3 C difficile DNA [Negative] Negative 1 (11/12/2012 21:54:26) 1Interpretive Data: [facility] Clostridium difficile assay utilizes loop-mediated isothermalDNA amplification (LAMP) technology to detect a 204 bp region of the tcdA gene within the PaLoc genesegment present in all known toxigenic C. difficile strains. The assay utilizes FDA cleared IVD reagents. Performance characteristics have been verified by the [facility] within the [facility]. The [facility] is authorized under the Clinical Laboratory Improvement Amendment of 1988 (CLIA-88) to perform highcomplexity testing.BEDSIDE GLUCOSE TESTING Most recent to 1 2 3 [Reference Range]: Gluc POC Lifscn [70-99 266 mg/dL 2 140 mg/dL 3 201 mg/dL 4 mg/dL] *HI* *HI* *HI* (11/14/2012 17:14:00) (11/14/2012 11:42:00) (11/14/2012 08:20:00) Comment1 Notify RN/MD Notify RN/MD Notify RN/MD *NA* *NA* *NA* (11/14/2012 17:14:00) (11/14/2012 11:42:00) (11/14/2012 08:20:00) 2Interpretive Data: Upper Reportable Limit: 200 mg/dL.3Interpretive Data: Upper Reportable Limit: 200 mg/dL.4Interpretive Data: Upper Reportable Limit: 200 mg/dL.URINALYSIS Most recent to oldest 1 2 3 [Reference Range]: UA Turbidity [Clear] Slight Slight *ABN* *ABN* (11/07/2012 20:54:00) (11/06/2012 03:15:40) UA Color [Yellow] Yellow Yellow *NA* *NA* (11/07/2012 20:54:00) (11/06/2012 03:15:40) UA pH [5.0-8.0] 5.0 5.0 (11/07/2012 20:54:00) (11/06/2012 03:15:40) UA Spec Grav [<=1.030] 1.010 1.014 (11/07/2012 20:54:00) (11/06/2012 03:15:40) UA Glucose >=1000mg/dL *NA* (11/07/2012 20:54:00) UA Glucose [Negative >=1000 mg/dL mg/dL] *ABN* (11/06/2012 03:15:40) UA Blood [Negative] Trace Negative *ABN* (11/06/2012 03:15:40) (11/07/2012 20:54:00) UA Ketones [Negative 40 mg/dL 40 mg/dL 60 mg/dL mg/dL] *ABN* *ABN* *ABN* (11/07/2012 20:54:00) (11/07/2012 06:24:57) (11/06/2012 03:15:40) UA Protein [Negative 20 mg/dL Negative mg/dL mg/dL] *ABN* (11/06/2012 03:15:40) (11/07/2012 20:54:00) UA Urobilinogen [0.1-1.0 <=1.0 mg/dL <=1.0 mg/dL mg/dL] *NA* *NA* (11/07/2012 20:54:00) (11/06/2012 03:15:40) UA Bili [Negative] Negative Negative *NA* *NA* (11/07/2012 20:54:00) (11/06/2012 03:15:40) UA Leuk Est [Negative] Large Large *ABN* *ABN* (11/07/2012 20:54:00) (11/06/2012 03:15:40) UA Nitrite [Negative] Negative Negative (11/07/2012 20:54:00) (11/06/2012 03:15:40) UA WBC [0-5 /HPF] >182 /HPF 67 /HPF *HI* *HI* (11/07/2012 20:54:00) (11/06/2012 03:15:40) UA RBC [0-2 /HPF] 4 /HPF *HI* (11/07/2012 20:54:00) UA Bacteria [None Seen Moderate /HPF Occasional /HPF /HPF] *ABN* *NA* (11/07/2012 20:54:00) (11/06/2012 03:15:40) UA Sq Epi [Few /LPF] Moderate /LPF Moderate /LPF *ABN* *ABN* (11/07/2012 20:54:00) (11/06/2012 03:15:40) UA Hyal Cast [0-2 /LPF] 37 /LPF *HI* (11/07/2012 20:54:00) UA Mucus [None Seen /LPF] Few /LPF Few /LPF *NA* *NA* (11/07/2012 20:54:00) (11/06/2012 03:15:40) Micro? Performed *NA* (11/07/2012 20:54:00) CHEMISTRY Most recent to oldest 1 2 3 [Reference Range]: Sodium Lvl [135-145 mEq/L] 136 mEq/L 142 mEq/L 138 mEq/L (11/13/2012 23:45:00) (11/13/2012 05:00:00) (11/12/2012 00:19:00) Potassium Lvl [3.5-5.1 3.7 mEq/L 3.3 mEq/L 5 3.7 mEq/L mEq/L] (11/13/2012 23:45:00) *LOW* (11/12/2012 00:19:00) (11/13/2012 05:00:00) Chloride Lvl [95-109 mEq/L] 101 mEq/L 111 mEq/L 103 mEq/L (11/13/2012 23:45:00) *HI* (11/12/2012 00:19:00) (11/13/2012 05:00:00) CO2 [24-32 mEq/L] 23 mEq/L 17 mEq/L 25 mEq/L *LOW* *LOW* (11/12/2012 00:19:00) (11/13/2012 23:45:00) (11/13/2012 05:00:00) AGAP [10.0-20.0 mEq/L] 15.7 mEq/L 17.3 mEq/L 13.7 mEq/L (11/13/2012 23:45:00) (11/13/2012 05:00:00) (11/12/2012 00:19:00) Creatinine Lvl [0.5-1.4 0.7 mg/dL 0.3 mg/dL 0.8 mg/dL mg/dL] (11/13/2012 23:45:00) *LOW* (11/12/2012 00:19:00) (11/13/2012 05:00:00) eGFR 104 mL/min/1.73m2 6 137 mL/min/1.73m2 7 88 mL/min/1.73m2 8 *NA* *NA* *NA* (11/13/2012 23:45:00) (11/13/2012 05:00:00) (11/12/2012 00:19:00) BUN [7-22 mg/dL] 3 mg/dL 3 mg/dL 5 mg/dL *LOW* *LOW* *LOW* (11/13/2012 23:45:00) (11/13/2012 05:00:00) (11/12/2012 00:19:00) B/C Ratio [6-25] 4 7 *LOW* (11/05/2012 20:40:00) (11/13/2012 23:45:00) Glucose Lvl [70-99 mg/dL] 210 mg/dL 9 104 mg/dL 10 40 mg/dL 11, 12 *HI* *HI* *CRIT* (11/13/2012 23:45:00) (11/13/2012 05:00:00) (11/12/2012 00:19:00) Total Protein [6.4-8.4 g/dL] 6.3 g/dL 5.3 g/dL 8.0 g/dL *LOW* *LOW* (11/05/2012 20:40:00) (11/13/2012 23:45:00) (11/13/2012 05:01:00) Albumin Lvl [3.5-5.0 g/dL] 2.9 g/dL 2.4 g/dL 3.7 g/dL *LOW* *LOW* (11/05/2012 20:40:00) (11/13/2012 23:45:00) (11/13/2012 05:01:00) Globulin [2.0-4.0 g/dL] 3.4 g/dL 2.9 g/dL 4.3 g/dL (11/13/2012 23:45:00) (11/13/2012 05:01:00) *HI* (11/05/2012 20:40:00) A/G Ratio [0.7-1.6] 0.9 0.8 0.9 (11/13/2012 23:45:00) (11/13/2012 05:01:00) (11/05/2012 20:40:00) Calcium Lvl [8.5-10.5 mg/dL] 8.5 mg/dL 6.7 mg/dL 13 8.5 mg/dL (11/13/2012 23:45:00) *CRIT* (11/12/2012 00:19:00) (11/13/2012 05:00:00) Phosphorus [2.5-4.5 mg/dL] 3.6 mg/dL 2.8 mg/dL 3.2 mg/dL (11/13/2012 23:45:00) (11/13/2012 05:00:00) (11/12/2012 00:19:00) Magnesium Lvl [1.8-2.4 1.5 mg/dL 1.3 mg/dL 1.9 mg/dL mg/dL] *LOW* *LOW* (11/12/2012 00:19:00) (11/13/2012 23:45:00) (11/13/2012 05:00:00) ALT [0-65 unit/L] 51 unit/L 41 unit/L 62 unit/L (11/13/2012 23:45:00) (11/13/2012 05:01:00) (11/05/2012 20:40:00) AST [0-37 unit/L] 41 unit/L 56 unit/L 44 unit/L *HI* *HI* *HI* (11/13/2012 23:45:00) (11/13/2012 05:01:00) (11/05/2012 20:40:00) Alk Phos [39-136 unit/L] 84 unit/L 67 unit/L 119 unit/L (11/13/2012 23:45:00) (11/13/2012 05:01:00) (11/05/2012 20:40:00) Bili Total [0.2-1.3 mg/dL] 0.4 mg/dL 0.4 mg/dL 0.5 mg/dL (11/13/2012 23:45:00) (11/13/2012 05:01:00) (11/05/2012 20:40:00) Bili Direct [0.0-0.3 mg/dL] 0.1 mg/dL (11/13/2012 05:01:00) Bili Indirect [0.0-1.0 0.3 mg/dL mg/dL] (11/13/2012 05:01:00) Amylase Lvl [25-115 unit/L] 14 unit/L *LOW* (11/13/2012 05:01:00) Lipase Lvl [73-393 unit/L] 43 unit/L 89 unit/L *LOW* (11/06/2012 03:15:00) (11/13/2012 05:01:00) Ketone Quantitative [<=0.27 2.20 mmol/L 3.00 mmol/L mmol/L] *HI* *HI* (11/06/2012 14:12:25) (11/06/2012 03:15:00) Total CK [12-191 unit/L] 25 unit/L 48 unit/L 30 unit/L (11/12/2012 07:00:00) (11/06/2012 08:41:00) (11/06/2012 03:15:00) Troponin-T [0.000-0.100 <0.010 ng/mL <0.010 ng/mL ng/mL] (11/06/2012 08:41:00) (11/06/2012 03:15:00) Troponin-I [0.00-0.40 ng/mL] <0.02 ng/mL <0.02 ng/mL 0.02 ng/mL (11/12/2012 07:00:00) (11/06/2012 08:41:00) (11/06/2012 03:15:00) Hgb A1C 8.2 % 14 *NA* (11/07/2012 03:10:00) Ca Ion mgdL [4.65-5.20 3.32 mg/dL 4.04 mg/dL 4.00 mg/dL mg/dL] *CRIT* *LOW* *LOW* (11/13/2012 23:45:00) (11/13/2012 05:00:00) (11/12/2012 00:19:00) Ca Ion [1.16-1.30 mMol/L] 0.83 mMol/L 15 1.01 mMol/L 1.00 mMol/L *CRIT* *LOW* *LOW* (11/13/2012 23:45:00) (11/13/2012 05:00:00) (11/12/2012 00:19:00) Ca Norm [1.16-1.30 mMol/L] 0.88 mMol/L 1.07 mMol/L 1.05 mMol/L *CRIT* *LOW* *LOW* (11/13/2012 23:45:00) (11/13/2012 05:00:00) (11/12/2012 00:19:00) Ca Norm mgdL [4.65-5.20 3.52 mg/dL 4.28 mg/dL 4.20 mg/dL mg/dL] *LOW* *LOW* *LOW* (11/13/2012 23:45:00) (11/13/2012 05:00:00) (11/12/2012 00:19:00) U Osmolality [300-800 207 mOsm/kg mOsm/kg] *LOW* (11/06/2012 14:11:09) POC A Hct [36.0-48.0 %] 31.0 % *LOW* (11/06/2012 13:31:00) POC A Ca Ion [1.16-1.30 1.11 mMol/L mMol/L] *LOW* (11/06/2012::) POC A K [3.5-5.1 mEq/L] 3.7 mEq/L (11/06/2012) POC A Source ART ART *NA* *NA* (11/06/2012:00) (11/06/2012:) POC A Temp 37.0 DegC 37.0 DegC *NA* *NA* (11/06/2012) (11/06/2012:) POC A pH [7.35-7.45] 7.45 7.42 (11/06/2012) (11/06/2012:) POC A PCO2 [35-45 mmHg] 35 mmHg 31 mmHg (11/06/2012) *LOW* (11/06/2012) POC A PO2 [80-100 mmHg] 85 mmHg 81 mmHg (11/06/2012) (11/06/2012:) POC A HCO3 [22-26 mMol/L] 24 mMol/L 20 mMol/L (11/06/2012) *LOW* (11/06/2012:) POC A BE [-2-2 mMol/L] 0 mMol/L -4 mMol/L (11/06/2012:) *LOW* (11/06/2012) POC A O2 Sat [95.0-100.0 %] 97.0 % 96.0 % (11/06/2012:00) (11/06/2012:) POC A Glu [70-99 mg/dL] 281 mg/dL *HI* (11/06/2012) POC A LA [0.5-2.2 mMol/L] 0.9 mMol/L (11/06/2012:00) POC A Na [135-145 mEq/L] 123 mEq/L *LOW* (11/06/2012 13:31:00) POC A %FIO2 [18.0-100.0 %] 21.0 % 21.0 % (11/06/2012 13:31:00) (11/06/2012 09:43:00) 5Result Comment: Specimen Slightly Hemolyzed.6Result Comment: The eGFR is calculated using the CKD-EPI formula. In most young, healthy individualsthe eGFR will be >90 mL/min/1.73m2. The eGFR declines with age. An eGFR of 60-89 may be normal in some populations, particularly the elderly, for whom the CKD- EPI formula has not been extensively validated. Use [...] eGFR should be multiplied by the estimated BMI.7Result Comment: The eGFR is calculated using the [...] eGFR should be multiplied by the estimated BMI.8Result Comment: The eGFR is calculated using the [...] eGFR should be multiplied by the estimated BMI.9Interpretive Data: Adult reference range values reflect the clinical guidelines of the [place] [employer].10Interpretive Data: Adult reference range values reflect the clinical guidelines of the [place] [employer].11Result Comment: rechecked Critical Result (s) called leslie Conner Rose at 11/12/2012 02:56:37 [employer] by_mgm. Read back OK.12Interpretive Data: Adult reference range values reflect the clinical guidelines of the [place] [employer].13Result Comment: Critical Result(s) called to tino gustafson at _11/13/2012 06:59:47 CDT bylg. Read back OK.14Interpretive Data: HbA1C% eAG(mg/dL) Interpretation 6.0 126 Very good control 6.5 140 Very good control 7.0 154 Good Control 7.5 169 Good Control 8.0 183 Marginal Control, take action to lower 8.5 197 Marginal Control, take action to lower 9.0 212 Poor Control, take action to lower 9.5 226 Poor Control, take action to lower 10.0 240 Poor Control, take action to [id number] Comment : Critical Result(s) called leslie Rose at 11/14/2012 00:23:56 CDT_ by_tvs. Read back OK.HEMATOLOGY Most recent to oldest 1 2 3 [Reference Range]: WBC [3.7-10.4 K/CMM] 8.6 K/CMM 6.8 K/CMM 9.2 K/CMM (11/13/2012 23:45:00) (11/13/2012 05:00:00) (11/12/2012 00:19:00) RBC [4.20-5.40 M/CMM] 4.70 M/CMM 3.74 M/CMM 4.19 M/CMM (11/13/2012 23:45:00) *LOW* *LOW* (11/13/2012 05:00:00) (11/12/2012 00:19:00) Hgb [12.0-16.0 g/dL] 11.5 g/dL 9.1 g/dL 10.1 g/dL *LOW* *LOW* *LOW* (11/13/2012 23:45:00) (11/13/2012 05:00:00) (11/12/2012 00:19:00) Hct [36.0-48.0 %] 35.5 % 29.4 % 31.6 % *LOW* *LOW* *LOW* (11/13/2012 23:45:00) (11/13/2012 05:00:00) (11/12/2012 00:19:00) MCV [81.0-99.0 fL] 75.5 fL 78.6 fL 75.3 fL *LOW* *LOW* *LOW* (11/13/2012 23:45:00) (11/13/2012 05:00:00) (11/12/2012 00:19:00) MCH [27.0-31.0 pg] 24.5 pg 24.4 pg 24.1 pg *LOW* *LOW* *LOW* (11/13/2012 23:45:00) (11/13/2012 05:00:00) (11/12/2012 00:19:00) MCHC [32.0-36.0 g/dL] 32.4 g/dL 31.1 g/dL 32.0 g/dL (11/13/2012 23:45:00) *LOW* (11/12/2012 00:19:00) (11/13/2012 05:00:00) RDW [11.5-14.5 %] 19.0 % 19.1 % 19.0 % *HI* *HI* *HI* (11/13/2012 23:45:00) (11/13/2012 05:00:00) (11/12/2012 00:19:00) Platelet [133-450 K/CMM] 221 K/CMM 192 K/CMM 233 K/CMM (11/13/2012 23:45:00) (11/13/2012 05:00:00) (11/12/2012 00:19:00) MPV [7.4-10.4 fL] 9.1 fL 9.1 fL 9.1 fL (11/13/2012 23:45:00) (11/13/2012 05:00:00) (11/12/2012 00:19:00) Segs [45.0-75.0 %] 53.3 % 51.0 % 52.0 % (11/13/2012 23:45:00) (11/13/2012 05:00:00) (11/12/2012 00:19:00) Bands [0.0-11.0 %] 0.0 % 0.0 % 1.0 % (11/13/2012 05:00:00) (11/12/2012 00:19:00) (11/05/2012 20:40:00) Lymphocytes [20.0-40.0 %] 33.6 % 42.0 % 39.0 % (11/13/2012 23:45:00) *HI* (11/12/2012 00:19:00) (11/13/2012 05:00:00) Atypical Lymphs [<=0.0 %] 0.0 % 0.0 % 0.0 % (11/13/2012 05:00:00) (11/12/2012 00:19:00) (11/05/2012 20:40:00) Monocytes [2.0-12.0 %] 10.3 % 5.0 % 6.0 % (11/13/2012 23:45:00) (11/13/2012 05:00:00) (11/12/2012 00:19:00) Eosinophils [0.0-4.0 %] 2.1 % 2.0 % 2.0 % (11/13/2012 23:45:00) (11/13/2012 05:00:00) (11/12/2012 00:19:00) Basophils [0.0-1.0 %] 0.7 % 1.0 % 0.7 % (11/13/2012 23:45:00) (11/12/2012 00:19:00) (11/11/2012 03:41:00) Segs-Bands # [1.5-8.1 4.6 K/CMM 3.5 K/CMM 4.8 K/CMM K/CMM] (11/13/2012 23:45:00) (11/13/2012 05:00:00) (11/12/2012 00:19:00) Lymphocytes # [1.0-5.5 2.9 K/CMM 2.9 K/CMM 3.6 K/CMM K/CMM] (11/13/2012 23:45:00) (11/13/2012 05:00:00) (11/12/2012 00:19:00) Monocytes # [0.0-0.8 0.9 K/CMM 0.3 K/CMM 0.6 K/CMM K/CMM] *HI* (11/13/2012 05:00:00) (11/12/2012 00:19:00) (11/13/2012 23:45:00) Eosinophils # [0.0-0.5 0.2 K/CMM 0.1 K/CMM 0.2 K/CMM K/CMM] (11/13/2012 23:45:00) (11/13/2012 05:00:00) (11/12/2012 00:19:00) Basophils # [0.0-0.2 0.1 K/CMM 0.1 K/CMM 0.1 K/CMM K/CMM] (11/13/2012 23:45:00) (11/12/2012 00:19:00) (11/11/2012 03:41:00) RBC Morph Normal (11/13/2012 05:00:00) Anisocyte [None Seen] 1+ *ABN* (11/05/2012 20:40:00) Polychrom [None Seen] Slight (11/05/2012 20:40:00) Hypochrom [None Seen] Slight Slight (11/12/2012 00:19:00) (11/05/2012 20:40:00) Macrocyte [None Seen] 1+ *ABN* (11/05/2012 20:40:00) Microcyte [None Seen] 1+ 1+ 1+ *ABN* *ABN* *ABN* (11/13/2012 23:45:00) (11/11/2012 03:41:00) (11/09/2012 05:12:00) Plt Morph Normal Normal (11/13/2012 05:00:00) (11/05/2012 20:40:00) Large Plt [None Seen] Slight *ABN* (11/12/2012 00:19:00) PT [12.0-14.7 seconds] 13.2 seconds (11/05/2012 20:40:00) INR [0.85-1.17] 0.98 16 (11/05/2012 20:40:00) PTT [22.9-35.8 seconds] 26.4 seconds 17 (11/05/2012 20:40:00) 16Interpretive Data: RECOMMENDED RANGES FOR PROTIME INR: 2.0-3.0 for most medical and surgical thromboembolic states. 2.5-3.5 for artificial heart valves and recurrent embolism. INR SHOULD BE USED ONLY FOR PATIENTS ON STABLE ANTICOAGULANT THERAPY.17Interpretive Data: Heparin Therapeutic Range: 57 - 92 Seconds Microbiology Reports PROCEDURE:Culture: Urine STATUS: Auth (Verified) BODY SITE: COLLECTED DATE/TIME: 11/06/2012 09:33:00 SOURCE: Urine, Clean Catch FREE TEXT SOURCE: FINAL REPORTS Final [id number],000 - 100,000 CFU/mL Enterococcus SpeciesPRELIMINARY REPORTS Preliminary [id number],000 - 100,000 CFU/ mL Enterococcus Species Identification And Sensitivity PendingSUSCEPTIBILITY REPORT ENTERO Antibiotic INTERP. VDIL Ampicillin S Levofloxacin S Nitrofurantoin S Tetracycline R Vancomycin S
--- OUTSIDE RECORDS SUMMARY | 2018-02-13 16:10 | XMS REPORT | CCD ---
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 Medications Medication Instructions Start Date End Date Status Cymbalta 120 mg, 2 cap, Route: 11/16/2012 11/17/2012 Discontinued PO, Drug form: DRC, Bedtime, Dosing Weight 100, kg, Start date: 11/16/12 21:00:00, Duration: 30 day, Stop date: 12/15/12 21:00:00 clonazepam 0.5 mg, 1 tab, Route: 11/16/2012 11/17/2012 Discontinued PO, Drug form: TAB, TID, Dosing Weight 100, kg, Start date: 11/16/12 20:30:00, Duration: 30 day, Stop date: 12/16/12 17:00:00 aspirin 81 mg, 1 tab, Route: PO, 11/17/2012 11/17/2012 Discontinued Drug form: ECTAB, Daily, Dosing Weight 100, kg, Start date: 11/17/12 9:00:00, Duration: 30 day, Stop date: 12/16/12 9:00:00 Omnipaque 350mg/ml 100 mL, Route: IVP, Drug Form: SOLN, Dosing Weight 100, kg , ONCALL, STAT, Start date: 11/16/12 15:35:00, Duration: 1 doses or times, Dose= 2.2ml/kg, Max vzdl=495gs -- "To be infused by Radiology Staff ONLY" 201211/16/2012 Discontinued Dose=2.2ml/kg, Max mlcw=025oa -- "To be infused by Radiology Staff ONLY" calcium gluconate + Sodium 2,000 mg, 20 mL, Route: 11/17/2012 11/17/2012 Completed Chloride 0.9% IV 80 mL IVPB, ONCE, Dosing Weight 103.21, kg, Start date: 11/17/12 11:02:00, Stop date: 11/17/12 11:02:00 enoxaparin 40 mg, 0.4 mL, Route: 11/16/2012 11/17/2012 Discontinued SUB-Q, Drug form: INJ, [id number], Dosing Weight 100, kg, Start date: 11/16/12 19:00:00, Duration: 30 day, Stop date: 12/15/12 19:00:00 magnesium sulfate 2 gm, 50 mL, Route: 11/17/2012 11/17/2012 Completed IVPB, Drug form: INJ, Q2H, Dosing Weight 103.21, kg, Total dose=4 gm, Start date: 11/17/12 10:00:00, Duration: 2 doses or times, Stop date: 11/17/12 12:00:00 morphine Sulfate 4 mg, 1 mL, Route: IVP, 11/16/2012 11/16/2012 Completed Drug form: INJ, ONCE, Dosing Weight 100, kg, Priority: STAT, Start date: 11/16/12 13:40:00, Stop date: 11/16/12 13:40:00 [place] 5/325 oral tablet 1 tab, Route: PO, Drug 11/16/2012 11/17/2012 Discontinued Form: TAB, Dosing Weight 100, kg, Q6H, PRN as needed for pain, Start date: 11/16/12 18:07:00, Duration: 30 day, Stop date: 12/16/12 18:06:00 ondansetron 8 mg oral 8 mg, 1 tab, PO, Q8H, PRN, Dissolve under tongue, 10 tab , as needed for nausea/vomiting, Substitution Allowed 11/16/2012 Ordered tablet, disintegrating Dissolve under tongue Reglan 10 mg oral tablet 10 mg, 1 tab, Route: PO, 11/17/2012 11/17/2012 Discontinued Drug form: TAB, TID-Before Meals, Dosing Weight 100, kg, Start date: 11/17/12 7:30:00, Duration: 30 day, Stop date: 12/16/12 16:30:00 magnesium sulfate 1 gm, Route: IVPB, Drug 11/16/2012 11/16/2012 Completed form: INJ, ONCE, Dosing Weight 100, kg, Start date: 11/16/12 14:51:00, Stop date: 11/16/12 14:51:00 Reglan 10 mg, Route: IVP, ONCE, 11/16/2012 11/16/2012 Completed Dosing Weight 100, kg, Priority: STAT, Start date: 11/16/12 16:16:00, Stop date: 11/16/12 16:16:00 Lactated Ringers (Bolus) 1,000 mL, Rate: 1,000 11/16/2012 11/16/2012 Completed IV 1,000 mL ml/hr, Infuse over: 1 hr, Route: IV, kg, Total Volume: 1,000, Bolus Dose, Priority: STAT, Start date: 11/16/12 15:06:00, Duration: 1 doses or times, Stop date: 11/16/12 16:05:00 Effient 10 mg oral tablet 10 mg, 1 tab, PO, Daily, 11/16/2012 Ordered 30 tab, Substitution Allowed, TAB tramadol 50 mg oral tablet 50 mg, 1 tab, PO, Q4H, 11/16/2012 Ordered PRN, 60 tab, for pain, Substitution Allowed, TAB clonazepam 0.5 mg oral 0.5 mg, 1 tab, PO, TID, 11/16/2012 Ordered tablet Substitution Allowed, TAB Sodium Chloride 0.9% IV 1,000 mL, Rate: 125 11/16/2012 11/17/2012 Discontinued 1,000 mL ml/hr, Infuse over: 8 hr, Route: IV, kg, Total Volume: 1,000, Start date: 11/16/12 18:10:00, Duration: 30 day, Stop date: 12/16/12 18:09:00 Ativan 1 mg, 0.5 mL, Route: 11/16/2012 11/16/2012 Completed IVP, Drug form: INJ, ONCE, Dosing Weight 100, kg, Priority: STAT, Start date: 11/16/12 13:55:00, Stop date: 11/16/12 13:55:00 tramadol 50 mg oral tablet 50 mg, 1 tab, Route: PO, 11/16/2012 11/17/2012 Discontinued Drug form: TAB, Q4H, Dosing Weight 100, kg, PRN as needed for pain, Start date: 11/16/12 18:01:00, Duration: 30 day, Stop date: 12/16/12 18:00:00 promethazine 25 mg, 1 tab, Route: PO, 11/16/2012 11/17/2012 Discontinued Drug form: TAB, Q4H, Dosing Weight 100, kg, PRN as needed for nausea/vomiting, Start date: 11/16/12 18:01:00, Duration: 30 day, Stop date: 12/16/12 18:00:00 simvastatin 40 mg, 1 tab, Route: PO, 11/17/2012 11/17/2012 Discontinued Drug form: TAB, Daily, Dosing Weight 100, kg, Start date: 11/17/12 9:00:00, Duration: 30 day, Stop date: 12/16/12 9:00:00 prasugrel 10 mg, 1 tab, Route: PO, 11/17/2012 11/17/2012 Discontinued Drug form: TAB, Daily, Dosing Weight 100, kg, Start date: 11/17/12 9:00:00, Duration: 30 day, Stop date: 12/16/12 9:00:00 ondansetron 8 mg, 2 tab, Route: PO, 11/16/2012 11/17/2012 Discontinued Drug form: TABDIS, Q8H, Dosing Weight 100, kg, PRN Nausea & Vomiting, Start date: 11/16/12 18:01:00, Stop date: 12/16/12 18:00:00, nauea NIFEdipine 90 mg, 1 tab, Route: PO, 11/17/2012 11/17/2012 Discontinued Drug form: ERTAB, Daily, Dosing Weight 100, kg, Start date: 11/17/12 9:00:00, Duration: 30 day, Stop date: 12/16/12 9:00:00 Toprol-XL 100 mg oral 100 mg, 1 tab, Route: 11/17/2012 11/17/2012 Discontinued tablet, extended release PO, Drug form: ERTAB, Daily, Start date: 11/17/12 9:00:00, Duration: 30 day, Stop date: 12/16/12 9:00:00 magnesium oxide 400 mg, 1 tab, Route: 11/17/2012 11/17/2012 Discontinued PO, Drug form: TAB, Daily, Dosing Weight 100, kg, Start date: 11/17/12 9:00:00, Duration: 30 day, Stop date: 12/16/12 9:00:00 lisinopril 20 mg, 1 tab, Route: PO, 11/16/2012 11/17/2012 Discontinued Drug form: TAB, Q12H, Dosing Weight 100, kg, Start date: 11/16/12 21:00:00, Duration: 30 day, Stop date: 12/16/12 9:00:00 insulin aspart 4 unit, 0.04 mL, Route: 11/17/2012 11/17/2012 Discontinued SUB-Q, Drug form: SOLN, TID-Before Meals, Dosing Weight 100, kg, Start date: 11/17/12 7:30:00, Duration: 30 day, Stop date: 12/16/12 16:30:00 insulin detemir 12 unit, 0.12 mL, Route: 11/16/2012 11/17/2012 Discontinued SUB-Q, Drug form: INJ, Bedtime, Dosing Weight 100, kg, Start date: 11/16/12 21:00:00, Duration: 30 day, Stop date: 12/15/12 21:00:00 insulin detemir 15 unit, 0.15 mL, Route: 11/17/2012 11/17/2012 Discontinued SUB-Q, Drug form: INJ, Daily, Dosing Weight 100, kg, Start date: 11/17/12 9:00:00, Duration: 30 day, Stop date: 12/16/12 9:00:00 insulin aspart 10 unit, 0.1 mL, Route: 11/16/2012 11/17/2012 Discontinued SUB-Q, Drug form: SOLN, TID-Before Meals, Dosing Weight 100, kg, PRN Blood Glucose Results, Start date: 11/16/12 18:10:00, Duration: 30 day, Stop date: 12/16/12 18:09:00 insulin aspart 8 unit, 0.08 mL, Route: 11/16/2012 11/17/2012 Discontinued SUB-Q, Drug form: SOLN, TID-Before Meals, Dosing Weight 100, kg, PRN Blood Glucose Results, Start date: 11/16/12 18:10:00, Duration: 30 day, Stop date: 12/16/12 18:09:00 insulin aspart 6 unit, 0.06 mL, Route: 11/16/2012 11/17/2012 Discontinued SUB-Q, Drug form: SOLN, TID-Before Meals, Dosing Weight 100, kg, PRN Blood Glucose Results, Start date: 11/16/12 18:10:00, Duration: 30 day, Stop date: 12/16/12 18:09:00 insulin aspart 4 unit, 0.04 mL, Route: 11/16/2012 11/17/2012 Discontinued SUB-Q, Drug form: SOLN, TID-Before Meals, Dosing Weight 100, kg, PRN Blood Glucose Results, Start date: 11/16/12 18:10:00, Duration: 30 day, Stop date: 12/16/12 18:09:00 insulin aspart 2 unit, 0.02 mL, Route: 11/16/2012 11/17/2012 Discontinued SUB-Q, Drug form: SOLN, TID-Before Meals, Dosing Weight 100, kg, PRN Blood Glucose Results, Start date: 11/16/12 18:10:00, Duration: 30 day, Stop date: 12/16/12 18:09:00 insulin aspart 4 unit, 0.04 mL, Route: 11/16/2012 11/17/2012 Discontinued SUB-Q, Drug form: SOLN, Bedtime, Dosing Weight 100, kg, PRN Blood Glucose Results, Start date: 11/16/12 18:10:00, Duration: 30 day, Stop date: 12/16/12 18:09:00 insulin aspart 1 unit, 0.01 mL, Route: 11/16/2012 11/17/2012 Discontinued SUB-Q, Drug form: SOLN, Bedtime, Dosing Weight 100, kg, PRN Blood Glucose Results, Start date: 11/16/12 18:10:00, Duration: 30 day, Stop date: 12/16/12 18:09:00 insulin aspart 2 unit, 0.02 mL, Route: 11/16/2012 11/17/2012 Discontinued SUB-Q, Drug form: SOLN, Bedtime, Dosing Weight 100, kg, PRN Blood Glucose Results, Start date: 11/16/12 18:10:00, Duration: 30 day, Stop date: 12/16/12 18:09:00 insulin aspart 3 unit, 0.03 mL, Route: 11/16/2012 11/17/2012 Discontinued SUB-Q, Drug form: SOLN, Bedtime, Dosing Weight 100, kg, PRN Blood Glucose Results, Start date: 11/16/12 18:10:00, Duration: 30 day, Stop date: 12/16/12 18:09:00 Dextrose 50% Syringe 12.5 gm, 25 mL, Route: 11/16/2012 11/17/2012 Discontinued IVP, Drug Form: INJ, Dosing Weight 100, kg, PRN, PRN Blood Glucose Results, Start date: 11/16/12 18:10:00, Duration: 30 day, Stop date: 12/16/12 18:09:00 Dextrose 50% Syringe 25 gm, 50 mL, Route: 11/16/2012 11/17/2012 Discontinued IVP, Drug Form: INJ, Dosing Weight 100, kg, PRN, PRN Blood Glucose Results, Start date: 11/16/12 18:10:00, Duration: 30 day, Stop date: 12/16/12 18:09:00 glucagon 1 mg, Route: IM, Drug 11/16/2012 11/17/2012 Discontinued form: PDR/INJ, PRN, Dosing Weight 100, kg, PRN Blood Glucose Results, Start date: 11/16/12 18:10:00, Duration: 30 day, Stop date: 12/16/12 18:09:00 Neutra-Phos 1 pkt, Route: PO, Drug 11/16/2012 11/17/2012 Discontinued Form: PDR/REC, Dosing Weight 100, kg, TID-Before Meals, Start date: 11/16/12 20:30:00, Duration: 30 day, Stop date: 12/16/12 16:30:00 nitroglycerin 0.4 mg 0.4 mg, 1 tab, Route: 11/16/2012 11/16/2012 Completed sublingual tablet SL, Drug form: TAB, ONCE, Dosing Weight 100, kg, Start date: 11/16/12 13:30:00, Stop date: 11/16/12 13:30:00 aspirin 324 mg, 4 tab, Route: 11/16/2012 11/16/2012 Completed CHEW, Drug form: CHEWTAB, ONCE, Dosing Weight 100, kg, Priority: STAT, Start date: 11/16/12 13:29:00, Stop date: 11/16/12 13:29:00 magnesium sulfate 1 gm, 2 mL, Route: IV, 11/16/2012 11/16/2012 Completed Drug form: INJ, ONCE, Dosing Weight 100, kg, Priority: STAT, Start date: 11/16/12 15:50:00, Stop date: 11/16/12 15:50:00 Zofran 8 mg, 4 mL, Route: IV, 11/17/2012 11/17/2012 Discontinued Drug form: INJ, Q4H, Dosing Weight 103.21, kg, PRN as needed for nausea/vomiting, Start date: 11/17/12 8:56:00, Duration: 30 day, Stop date: 12/17/12 8:55:00 Zofran 8 mg, 4 mL, Route: IVP, 11/16/2012 11/16/2012 Completed Drug form: INJ, ONCE, Dosing Weight 100, kg, Priority: STAT, Start date: 11/16/12 13:17:00, Stop date: 11/16/12 13:17:00 Saline Flush 0.9% 5 mL, Route: IVP, Drug Form: INJ, Dosing Weight 100, kg, Q8H , PRN Line Flush, Start date: 11/16/12 13:16:00, Duration: 30 day, Stop date: 13:15:00, Administer at least once every 8 hours 11/16/2012 11/17/2012 Discontinued Administer at least once every 8 hours Vital Signs Most recent to oldest 1 2 3 [Reference Range]: Height 162.56 cm 162.56 cm (11/16/2012 21:37:00) (11/16/2012 12:59:00) Temperature Oral [96.4-99.1 97.8 DegF 97.9 DegF 98.6 DegF DegF] (11/17/2012 12:30:00) (11/17/2012 04:24:00) (11/16/2012 23:59:00) Systolic Blood Pressure 117 mmHg 118 mmHg 154 mmHg [90-140 mmHg] (11/17/2012 15:00:00) (11/17/2012 14:00:00) *HI* (11/17/2012 13:00:00) Diastolic Blood Pressure 55 mmHg 70 mmHg 61 mmHg [60-90 mmHg] *LOW* (11/17/2012 14:00:00) (11/17/2012 13:00:00) (11/17/2012 15:00:00) Respiratory Rate [14-20 18 BRMIN BRMIN] (11/16/2012 21:37:00) Weight 103.21 kg 100 kg (11/16/2012 21:37:00) (11/16/2012 12:59:00) Results BEDSIDE GLUCOSE TESTING Most recent to oldest 1 2 3 [Reference Range]: Gluc POC Lifscn [70-99 219 mg/dL 1 255 mg/dL 2 305 mg/dL 3 mg/dL] *HI* *HI* *HI* (11/17/2012 11:58:00) (11/17/2012 05:31:00) (11/16/2012 21:25:00) Comment1 Notify RN/MD Notify RN/MD Notify RN/MD *NA* *NA* *NA* (11/17/2012 11:58:00) (11/17/2012 05:31:00) (11/16/2012 21:25:00) 1Interpretive Data: Upper Reportable Limit: 200 mg/dL.2Interpretive Data: Upper Reportable Limit: 200 mg/dL.3Interpretive Data: Upper Reportable Limit: 200 mg/dL.CHEMISTRY Most recent to oldest 1 2 3 [Reference Range]: Sodium Lvl [135-145 mEq/L] 134 mEq/L 136 mEq/L *LOW* (11/16/2012 13:30:17) (11/17/2012 04:33:00) Potassium Lvl [3.5-5.1 4.2 mEq/L 3.6 mEq/L mEq/L] (11/17/2012 04:33:00) (11/16/2012 13:30:17) Chloride Lvl [95-109 mEq/L] 100 mEq/L 99 mEq/L (11/17/2012 04:33:00) (11/16/2012 13:30:17) CO2 [24-32 mEq/L] 22 mEq/L 22 mEq/L *LOW* *LOW* (11/17/2012 04:33:00) (11/16/2012:30:17) AGAP [10.0-20.0 mEq/L] 16.2 mEq/L 18.6 mEq/L (11/17/2012 04:33:00) (11/16/2012:30:17) Creatinine Lvl [0.5-1.4 0.6 mg/dL 1.0 mg/dL mg/dL] (11/17/2012 04:33:00) (11/16/2012:30:17) eGFR 109 mL/min/1.73m2 4 67 mL/min/1.73m2 5 *NA* *NA* (11/17/2012 04:33:00) (11/16/2012:30:) BUN [7-22 mg/dL] 4 mg/dL 6 mg/dL *LOW* *LOW* (11/17/2012 04:33:00) (11/16/2012:30:17) B/C Ratio [6-25] 6 (11/16/2012::17) Glucose Lvl [70-99 mg/dL] 237 mg/dL 6 256 mg/dL 7 *HI* *HI* (11/17/2012 04:33:00) (11/16/2012:30:17) Total Protein [6.4-8.4 6.9 g/dL g/dL] (11/16/2012:30:17) Albumin Lvl [3.5-5.0 g/dL] 3.4 g/dL *LOW* (11/16/2012:30:17) Globulin [2.0-4.0 g/dL] 3.5 g/dL (11/16/2012:30:17) A/G Ratio [0.7-1.6] 1.0 (11/16/2012:30:17) Calcium Lvl [8.5-10.5 7.7 mg/dL 8.8 mg/dL mg/dL] *LOW* (11/16/2012:30:17) (11/17/2012 04:33:00) Phosphorus [2.5-4.5 mg/dL] 3.4 mg/dL 1.6 mg/dL (11/17/2012 04:33:00) *LOW* (11/16/2012:17:00) Magnesium Lvl [1.8-2.4 1.4 mg/dL 1.4 mg/dL mg/dL] *LOW* *LOW* (11/17/2012 04:33:00) (11/16/2012::) ALT [0-65 unit/L] 52 unit/L (11/16/2012::) AST [0-37 unit/L] 52 unit/L *HI* (11/16/2012:) Alk Phos [39-136 unit/L] 88 unit/L (11/16/2012::) Bili Total [0.2-1.3 mg/dL] 0.6 mg/dL (11/16/2012::) Total CK [12-191 unit/L] 52 unit/L 76 unit/L 27 unit/L (11/17/2012 04:33:00) (11/16/2012 22:37:00) (11/16/2012:) CK MB [0.5-3.6 ng/mL] 0.6 ng/mL (11/16/2012 22:37:00) CK MB Index [0.0-2.5] 0.8 (11/16/2012 22:37:00) Troponin-T [0.000-0.100 <0.010 ng/mL <0.010 ng/mL <0.010 ng/mL ng/mL] (11/17/2012 04:33:00) (11/16/2012 22:37:00) (11/16/2012::) Troponin-I [0.00-0.40 <0.02 ng/mL <0.02 ng/mL <0.02 ng/mL ng/mL] (11/17/2012 04:33:00) (11/16/2012 22:37:00) (11/16/2012::17) 4Result Comment: The eGFR is calculated using [...] eGFR should be multiplied by the estimated BMI.6Interpretive Data: Adult reference range values reflect the clinical guidelines of the [place] [employer].7Interpretive Data: Adult reference range values reflect the clinical guidelines of the [place] [employer].HEMATOLOGY Most recent to oldest [Reference 1 2 3 Range]: WBC [3.7-10.4 K/CMM] 8.4 K/CMM 13.3 K/CMM (11/17/2012 04:33:00) *HI* (11/16/2012 13:17:00) RBC [4.20-5.40 M/CMM] 3.67 M/CMM 4.29 M/CMM *LOW* (11/16/2012 13:17:00) (11/17/2012 04:33:00) Hgb [12.0-16.0 g/dL] 9.0 g/dL 10.8 g/dL *LOW* *LOW* (11/17/2012 04:33:00) (11/16/2012 13:17:00) Hct [36.0-48.0 %] 27.9 % 32.4 % *LOW* *LOW* (11/17/2012 04:33:00) (11/16/2012 13:17:00) MCV [81.0-99.0 fL] 75.9 fL 75.4 fL *LOW* *LOW* (11/17/2012 04:33:00) (11/16/2012 13:17:00) MCH [27.0-31.0 pg] 24.5 pg 25.1 pg *LOW* *LOW* (11/17/2012 04:33:00) (11/16/2012 13:17:00) MCHC [32.0-36.0 g/dL] 32.3 g/dL 33.3 g/dL (11/17/2012 04:33:00) (11/16/2012 13:17:00) RDW [11.5-14.5 %] 18.9 % 18.0 % *HI* *HI* (11/17/2012 04:33:00) (11/16/2012 13:17:00) Platelet [133-450 K/CMM] 177 K/CMM 230 K/CMM (11/17/2012 04:33:00) (11/16/2012 13:17:00) MPV [7.4-10.4 fL] 9.5 fL 9.9 fL (11/17/2012 04:33:00) (11/16/2012 13:17:00) Segs [45.0-75.0 %] 60.3 % 72.3 % (11/17/2012 04:33:00) (11/16/2012 13:17:00) Lymphocytes [20.0-40.0 %] 27.8 % 16.8 % (11/17/2012 04:33:00) *LOW* (11/16/2012 13:17:00) Monocytes [2.0-12.0 %] 9.0 % 8.6 % (11/17/2012 04:33:00) (11/16/2012 13:17:00) Eosinophils [0.0-4.0 %] 2.1 % 1.5 % (11/17/2012 04:33:00) (11/16/2012 13:17:00) Basophils [0.0-1.0 %] 0.8 % 0.8 % (11/17/2012 04:33:00) (11/16/2012 13:17:00) Segs-Bands # [1.5-8.1 K/CMM] 5.1 K/CMM 9.7 K/CMM (11/17/2012 04:33:00) *HI* (11/16/2012 13:17:00) Lymphocytes # [1.0-5.5 K/CMM] 2.3 K/CMM 2.2 K/CMM (11/17/2012 04:33:00) (11/16/2012 13:17:00) Monocytes # [0.0-0.8 K/CMM] 0.8 K/CMM 1.1 K/CMM (11/17/2012 04:33:00) *HI* (11/16/2012 13:17:00) Eosinophils # [0.0-0.5 K/CMM] 0.2 K/CMM 0.2 K/CMM (11/17/2012 04:33:00) (11/16/2012 13:17:00) Basophils # [0.0-0.2 K/CMM] 0.1 K/CMM 0.1 K/CMM (11/17/2012 04:33:00) (11/16/2012 13:17:00) Anisocyte [None Seen] 1+ *ABN* (11/16/2012 13:17:00) Polychrom [None Seen] Slight (11/16/2012 13:17:00) Hypochrom [None Seen] Slight (11/16/2012 13:17:00) Microcyte [None Seen] 1+ 1+ *ABN* *ABN* (11/17/2012 04:33:00) (11/16/2012 13:17:00) Elliptocyte [None Seen] Slight *ABN* (11/16/2012 13:17:00) Schistocyte Occasional *NA* (11/16/2012 13:17:00) Large Plt [None Seen] Slight *ABN* (11/16/2012 13:17:00) PT [12.0-14.7 seconds] 14.3 seconds (11/17/2012 04:33:00) INR [0.85-1.17] 1.09 8 (11/17/2012 04:33:00) PTT [22.9-35.8 seconds] 31.8 seconds 9 (11/17/2012 04:33:00) 8Interpretive Data: RECOMMENDED RANGES FOR PROTIME INR: 2.0-3.0 for most medical and surgical thromboembolic states. 2.5-3.5 for artificial heart valves and recurrent embolism. INR SHOULD BE USED ONLY FOR PATIENTS ON STABLE ANTICOAGULANT THERAPY.9Interpretive Data: Heparin Therapeutic Range: 57 - 92 Seconds Procedures Procedures Date Related Diagnosis Bypass of stomach
--- OUTSIDE RECORDS SUMMARY | 2018-02-13 16:10 | XMS REPORT | CCD ---
:[address] [facility] Care Team Providers Name Role Phone Nikhil Hager Consulting Provider Sukhwinder Renteria Consulting Provider Allergies, Adverse Reactions, Alerts Substance Reaction Status NKDA Active Problem List Condition Effective Dates Status Acid reflux Resolved Anemia Resolved Anxiety Resolved Arthritis Resolved Depression Resolved Diabetes mellitus type 1 Resolved Edema of lower extremity Resolved Fibromyalgia Resolved Hyperlipidemia Resolved Hypertension Resolved MRSA1, 2 10/23/2012 Active 1nares 10/[id number]/[id number] added by Discern Expert. Medications Medication Instructions Start Date End Date Status insulin lispro 6 unit, SUB-Q, 10/24/2012 10/31/2012 Discontinued TID-Before Meals, Substitution Allowed 1/2 NS 1,000 mL 1,000 mL, Rate: 100 10/25/2012 10/27/2012 Discontinued ml/hr, Infuse over: 10 hr, Route: IV, kg, Total Volume: 1,000, Start date: 10/25/12 13:52:00, Duration: 30 day, Stop date: 11/24/12 13:51:00 magnesium sulfate 1 gm, 50 mL, Route: 10/30/2012 10/30/2012 Completed IVPB, Drug form: INJ, ONCE, Dosing Weight 78.2, kg, Start date: 10/30/12 7:44:00, Stop date: 10/30/12 7:44:00 Heparin - infusion (ACS 25,000 unit, 500 mL, 10/23/2012 10/24/2012 Discontinued Protocol) heparin Rate: Start at 12 25,000 units in D5W 500 units/kg/hr (Max mL Premix 25,000 unit Initial dose 1,000 un, Dosing Weight 78.27, kg, Route: IV, Total Volume: 500 ml, Start date: 10/23/12 17:57:00, Duration: 30 day, Stop date: 11/22/12 17:56:00, Replace Every: 24 hr lisinopril 20 mg, 1 tab, Route: 10/27/2012 11/01/2012 Discontinued PO, Drug form: TAB, Q12H, Dosing Weight 78.2, kg, Start date: 10/27/12 10:00:00, Duration: 30 day, Stop date: 11/26/12 9:00:00 potassium chloride 20 mEq, 15 mL, 10/30/2012 10/30/2012 Completed Route: PO, Drug form: LIQ, ONCE, Dosing Weight 78.2, kg, Start date: 10/30/12 7:44:00, Stop date: 10/30/12 7:44:00 simvastatin 40 mg oral 40 mg, 1 tab, PO, 10/31/2012 Ordered tablet Bedtime, 30 tab, 1, 1, Substitution Allowed, Maintenance, TAB promethazine 25 mg oral 25 mg, 1 tab, PO, 10/31/2012 Ordered tablet Q6H, PRN, 60 tab, 1, 1, Nausea & Vomiting, Substitution Allowed, TAB prasugrel 10 mg oral 10 mg, 1 tab, PO, 10/31/2012 Ordered tablet Daily, 30 tab, 1, 1, Substitution Allowed, TAB ondansetron 8 mg oral 8 mg, 1 tab, PO, 10/31/2012 Ordered tablet, disintegrating Q8H, PRN, 60 tab, 1, 1, Nausea, Substitution Allowed, TABDIS NIFEdipine 90 mg oral 90 mg, 1 tab, PO, 10/31/2012 Ordered tablet, extended Daily, 30 tab, 1, 1, release Substitution Allowed, ERTAB Toprol-XL 100 mg oral 100 mg, 1 tab, PO, 10/31/2012 Ordered tablet, extended Daily, 30 tab, 1, 1, release Substitution Allowed, ERTAB magnesium oxide 400 mg 400 mg, 1 tab, PO, 10/31/2012 Ordered oral tablet Daily, 30 tab, 1, 1, Substitution Allowed, TAB morphine Sulfate 2 mg, 1 mL, Route: 10/23/2012 10/23/2012 Completed IVP, Drug form: INJ, ONCE, Dosing Weight 113.636, kg, Priority: STAT, Start date: 10/23/12 19:49:00, Stop date: 10/23/12 19:49:00 Insulin regular 2 unit, 0.02 mL, 10/23/2012 10/23/2012 Discontinued Route: SUB-Q, Drug form: SOLN, Sliding Scale, Dosing Weight 113.636, kg, PRN Blood Glucose Results, Start date: 10/23/12 0:26:00, Duration: 30 day, Stop date: 11/22/12 1:25:00 Insulin regular 4 unit, 0.04 mL, 10/23/2012 10/23/2012 Discontinued Route: SUB-Q, Drug form: SOLN, Sliding Scale, Dosing Weight 113.636, kg, PRN Blood Glucose Results, Start date: 10/23/12 0:26:00, Duration: 30 day, Stop date: 11/22/12 1:25:00 Insulin regular 10 unit, 0.1 mL, 10/23/2012 10/23/2012 Discontinued Route: SUB-Q, Drug form: SOLN, Sliding Scale, Dosing Weight 113.636, kg, PRN Blood Glucose Results, Start date: 10/23/12 0:26:00, Duration: 30 day, Stop date: 11/22/12 1:25:00 Insulin regular 8 unit, 0.08 mL, 10/23/2012 10/23/2012 Discontinued Route: SUB-Q, Drug form: SOLN, Sliding Scale, Dosing Weight 113.636, kg, PRN Blood Glucose Results, Start date: 10/23/12 0:26:00, Duration: 30 day, Stop date: 11/22/12 1:25:00 Insulin regular 6 unit, 0.06 mL, 10/23/2012 10/23/2012 Discontinued Route: SUB-Q, Drug form: SOLN, Sliding Scale, Dosing Weight 113.636, kg, PRN Blood Glucose Results, Start date: 10/23/12 0:26:00, Duration: 30 day, Stop date: 11/22/12 1:25:00 glucagon 1 mg, Route: IM, 10/23/2012 10/23/2012 Discontinued Drug form: PDR/INJ, PRN, Dosing Weight 113.636, kg, PRN Blood Glucose Results, Start date: 10/23/12 0:26:00, Duration: 30 day, Stop date: 11/22/12 1:25:00 Dextrose 50% Syringe 25 gm, 50 mL, Route: 10/23/2012 10/23/2012 Discontinued IVP, Drug Form: INJ, Dosing Weight 113.636, kg, PRN, PRN Blood Glucose Results, Start date: 10/23/12 0:26:00, Duration: 30 day, Stop date: 11/22/12 1:25:00 Dextrose 50% Syringe 12.5 gm, 25 mL, 10/23/2012 10/23/2012 Discontinued Route: IVP, Drug Form: INJ, Dosing Weight 113.636, kg, PRN, PRN Blood Glucose Results, Start date: 10/23/12 0:26:00, Duration: 30 day, Stop date: 11/22/12 1:25:00 potassium chloride 20 mEq, 100 mL, 10/25/2012 10/25/2012 Completed Route: IVPB, Drug form: INJ, Q2H, Dosing Weight 78.2, kg, Total dose=40 mEq, Start date: 10/25/12 16:00:00, Duration: 2 doses or times, Stop date: 10/25/12 18:00:00 lisinopril 20 mg oral 20 mg, 1 tab, PO, 10/31/2012 Ordered tablet Q12H, 60 tab, 1, 1, Substitution Allowed, TAB aspirin 81 mg tablet, 81 mg, 1 tab, PO, 10/31/2012 Ordered enteric coated Daily, 30 tab, 1, 1, Substitution Allowed, ECTAB insulin aspart 100 4 unit, 0.04 mL, 10/31/2012 Ordered units/mL subcutaneous SUB-Q, TID-Before solution Meals, 1 vial, 2, 2, Substitution Allowed, SOLN insulin detemir 100 16 unit, 0.16 mL, 10/31/2012 Ordered units/mL subcutaneous SUB-Q, Q12H, 1 vial, solution 2, 2, Substitution Allowed, INJ NIFEdipine extended 60 mg, 1 tab, Route: 10/24/2012 10/25/2012 Discontinued release PO, Drug form: ERTAB, Daily, Dosing Weight 78.2, kg, Start date: 10/24/12 14:32:00, Duration: 30 day, Stop date: 11/23/12 9:00:00 potassium chloride 20 40 mEq, 2 tab, 10/25/2012 10/25/2012 Completed mEq oral tablet, Route: PO, Drug extended release form: ERTAB, ONCE, Dosing Weight 78.2, kg, Start date: 10/25/12 14:50:00, Stop date: 10/25/12 14:50:00 Reglan 10 mg oral 10 mg, Route: PO, 10/27/2012 10/27/2012 Canceled tablet Drug form: TAB, Before Meals & Bedtime, Dosing Weight 78.2, kg, Start date: 10/27/12 16:30:00, Duration: 30 day, Stop date: 11/26/12 11:30:00 Reglan 10 mg, 1 tab, Route: 10/25/2012 10/26/2012 Discontinued PO, Drug form: TAB, Before Meals & Bedtime, Dosing Weight 78.2, kg, Start date: 10/25/12 16:30:00, Duration: 30 day, Stop date: 11/24/12 11:30:00 atenolol 100 mg, 1 tab, 10/25/2012 10/26/2012 Discontinued Route: PO, Drug form: TAB, Daily, Dosing Weight 78.2, kg, Start date: 10/25/12 9:00:00, Duration: 30 day, Stop date: 11/23/12 9:00:00 D5W 1/2NS 1,000 mL 1,000 mL, Rate: 125 10/24/2012 10/25/2012 Discontinued ml/hr, Infuse over: 8 hr, Route: IV, kg, Total Volume: 1,000, Start date: 10/24/12 16:06:00, Duration: 30 day, Stop date: 11/23/12 16:05:00 Zofran 8 mg, 4 mL, Route: 10/24/2012 11/01/2012 Discontinued IV, Drug form: INJ, Q8H, Dosing Weight 78.2, kg, PRN Nausea, Priority: NOW, Start date: 10/24/12 7:56:00, Stop date: 11/23/12 7:55:00 magnesium sulfate 2 gm, 50 mL, Route: 10/25/2012 10/25/2012 Completed IVPB, Drug form: INJ, Q2H, Dosing Weight 78.2, kg, Total dose=4 gm, Start date: 10/25/12 16:00:00, Duration: 2 doses or times, Stop date: 10/25/12 18:00:00 heparin 5000 units/mL 5,000 unit, 1 mL, 10/25/2012 10/31/2012 Discontinued injectable solution Route: SUB-Q, Drug form: INJ, Q8H, Dosing Weight 78.2, kg, Start date: 10/25/12 0:00:00, Duration: 30 day, Stop date: 11/23/12 16:00:00 Effient 10 mg, Route: PO, 10/24/2012 10/24/2012 Canceled Q12H, Dosing Weight 78.2, kg, Start date: 10/24/12 21:00:00, Duration: 30 day, Stop date: 11/23/12 9:00:00 Dextrose 50% Syringe 25 gm, 50 mL, Route: 10/23/2012 10/23/2012 Discontinued IVP, Drug Form: INJ, Dosing Weight 113.636, kg, PRN, PRN Blood Glucose Results, Start date: 10/23/12 8:17:00, Duration: 30 day, Stop date: 11/22/12 9:16:00 Dextrose 50% Syringe 12.5 gm, 25 mL, 10/23/2012 10/23/2012 Discontinued Route: IVP, Drug Form: INJ, Dosing Weight 113.636, kg, PRN, PRN Blood Glucose Results, Start date: 10/23/12 8:17:00, Duration: 30 day, Stop date: 11/22/12 9:16:00 Insulin regular 100 100 mL, Rate: Start Insulin Drip Per ICU Protocol, Dosing Weight 113.636, kg, Route: IVPB, Total Volume: 101, Duration: 30 day, Stop date : 11/22/12 8:17:00, Replace Every: 24 hr, Initial Insulin Drip Ra 10/23/2012 10/23/2012 Discontinued unit + Sodium Chloride te (units/hour)=(Fasting Blood Glucose-60)X0.03 "... 0.9% (titrate) 100 mL Initial Insulin Drip Rate (units/hour)=(Fasting Blood Glucose-60)X0.03 "multiplier". carvedilol 25 mg oral Daily, Substitution 10/22/2012 10/31/2012 Discontinued tablet Allowed Diovan HCT 160 mg-12.5 1 tab, PO, Daily, 30 10/22/2012 10/31/2012 Discontinued mg oral tablet tab, Substitution Allowed, Maintenance, TAB metoprolol 5 mg/5 ml 5 mg, Route: IV, 10/24/2012 10/24/2012 Completed INJ ONCE, Dosing Weight 78.2, kg, Priority: NOW, Start date: 10/24/12 7:55:00, Stop date: 10/24/12 7:55:00 NIFEdipine extended 90 mg, 1 tab, Route: 10/26/2012 11/01/2012 Discontinued release PO, Drug form: ERTAB, Daily, Dosing Weight 78.2, kg, Start date: 10/26/12 9:00:00, Duration: 30 day, Stop date: 11/24/12 9:00:00 hydrALAZINE 10 mg, 0.5 mL, 10/23/2012 10/24/2012 Discontinued Route: IV, Drug form: INJ, Q4H, Dosing Weight 113.636, kg, PRN Other -See Comment, Start date: 10/23/12 0:38:00, Duration: 30 day, Stop date: 11/22/12 0:37:00, hypertesnion acetaminophen 650 mg, 1 supp, 10/23/2012 11/01/2012 Discontinued Route: [place], Drug form: SUPP, Q6H, Dosing Weight 113.636, kg, PRN Fever, Start date: 10/23/12 0:37:00, Duration: 30 day, Stop date: 11/22/12 0:36:00 Visipaque 320mg/ml 126 mL, Route: IVP, Drug Form: SOLN, Dosing Weight 113.636 , kg, ONCALL, STAT, Start date: 10/23/12 16:52:00, Duration: 1 doses or times, Dose=2.2ml/kg, Max utuc=[id number] -- "To be infused by Radiology Staff ONLY" 10/2310/23/2012 Completed Dose=2.2ml/kg, Max [id number] -- "To be infused by Radiology Staff ONLY" ergocalciferol 50,000 IntlUnit, 1 10/27/2012 10/30/2012 Completed cap, Route: PO, Drug form: CAP, Daily, Dosing Weight 78.2, kg, Start date: 10/27/12 9:00:00, Duration: 4 day, Stop date: 10/30/12 9:00:00 nitroglycerin 100 mg in 100 mg, 250 mL, 10/24/2012 10/24/2012 Deleted 250 ml D5W Premix Rate: Infuse as (titrate) 100 mg directed, Dosing Weight 78.2, kg, Route: IV, Total Volume: 250 mL, Start date: 10/24/12 7:55:00, Duration: 30 day, Stop date: 11/23/12 8:54:00, Replace Every: 24 hr enalapril 1.25 mg, 1 mL, 10/24/2012 10/24/2012 Canceled Route: IVP, Drug form: INJ, Q6H, Dosing Weight 78.2, kg, Start date: 10/24/12 18:00:00, Duration: 30 day, Stop date: 11/23/12 12:00:00 Procardia XL 30 mg, 1 tab, Route: 10/25/2012 10/25/2012 Completed PO, Drug form: ERTAB, ONCE, Dosing Weight 78.2, kg, Start date: 10/25/12 14:49:00, Stop date: 10/25/12 14:49:00 Reglan 5 mg, 1 mL, Route: 10/27/2012 11/01/2012 Discontinued IV, Drug form: INJ, Q8H, Dosing Weight 78.2, kg, PRN Nausea, Start date: 10/27/12 13:08:00, Duration: 30 day, Stop date: 11/26/12 13:07:00 Dilaudid 0.5 mg, 0.25 mL, 10/23/2012 10/28/2012 Discontinued Route: IV, Drug form: INJ, Q2H, Dosing Weight 113.636, kg, PRN Pain, Start date: 10/23/12 0:37:00, Duration: 30 day, Stop date: 11/22/12 0:36:00 folic acid 1 mg + Route: IV, Q24H, 10/23/2012 10/23/2012 Canceled Vitamin B1 100 mg + Start date: 10/23/12 M.V.I. Adult 10 mL + 9:00:00, Duration: 3 potassium chloride 20 day, Stop date: mEq + Dextrose 5% 10/25/12 9:00:00 lisinopril 20 mg, 1 tab, Route: 10/24/2012 10/24/2012 Discontinued PO, Drug form: TAB, Daily, Dosing Weight 78.2, kg, Priority: STAT, Start date: 10/24/12 11:44:00, Duration: 30 day, Stop date: 11/23/12 9:00:00 aspirin 200 mg, 1 supp, 10/24/2012 10/24/2012 Deleted Route: [place], Drug form: SUPP, ONCE, Dosing Weight 78.2, kg, Priority: NOW, Start date: 10/24/12 7:54:00, Stop date: 10/24/12 7:54:00 potassium chloride 20 mEq, 100 mL, Route: IVPB, Drug form: INJ, Q2H, Dosing Weight 78.2, kg, Total dose=60 mEq, Start date: 10/24/12 12:00:00, Duration: 3 doses or times, Stop date: 10/24/12 16:00:00, For K=3.0 - 3.4mEq/L 10/24/2012 10/24/2012 Completed For K=3.0 - 3.4mEq/L insulin detemir 16 unit, 0.16 mL, 10/28/2012 10/31/2012 Discontinued Route: SUB-Q, Drug form: INJ, QAM, Dosing Weight 78.2, kg, Start date: 10/28/12 9:00:00, Stop date: 11/26/12 9:00:00 insulin detemir 20 unit, 0.2 mL, 10/28/2012 10/31/2012 Discontinued Route: SUB-Q, Drug form: INJ, QPM, Dosing Weight 78.2, kg, Start date: 10/28/12 21:00:00, Duration: 30 day, Stop date: 11/27/12 17:00:00 Levemir 15 unit, SUB-Q, 10/24/2012 10/31/2012 Discontinued Q12H, Substitution Allowed D5W 1/2NS + KCL 40mEq/L 1,000 mL, Rate: 125 10/24/2012 10/24/2012 Discontinued 1000ml (Premix) 1,000 ml/hr, Infuse over: mL 8 hr, Route: IV, kg, Total Volume: 1,000, Priority: STAT, Start date: 10/24/12 12:37:00, Duration: 30 day, Stop date: 11/23/12 12:36:00 heparin 5,000 unit, Route: 10/23/2012 10/23/2012 Discontinued SUB-Q, Q8H, Dosing Weight 113.636, kg, Start date: 10/23/12 0:00:00, Duration: 30 day, Stop date: 11/21/12 16:00:00 Lactated Ringers 1,000 mL, Rate: 100 10/24/2012 10/29/2012 Discontinued (Bolus) IV 1,000 mL ml/hr, Infuse over: 10 hr, Route: IV, kg, Total Volume: 1,000, Start date: 10/24/12 12:24:00, Duration: 30 day, Stop date: 11/23/12 12:23:00 NovoLog FlexPen 6 unit, 0.06 mL, 10/25/2012 10/25/2012 Discontinued Route: SUB-Q, Drug form: SOLN, TID-Before Meals, Start date: 10/25/12 7:30:00, Duration: 30 day, Stop date: 11/23/12 16:30:00 magnesium oxide 400 mg, 1 tab, 10/27/2012 11/01/2012 Discontinued Route: PO, Drug form: TAB, Daily, Dosing Weight 78.2, kg, Start date: 10/27/12 9:00:00, Duration: 30 day, Stop date: 11/25/12 9:00:00 Lactated Ringers 1,000 mL, Rate: 150 10/24/2012 10/24/2012 Discontinued Injection IV 1,000 mL ml/hr, Infuse over: 6.7 hr, Route: IV, kg, Total Volume: 1,000, Start date: 10/24/12 11:50:00, Duration: 30 day, Stop date: 11/23/12 11:49:00 NovoLog FlexPen 4 unit, 0.04 mL, 10/28/2012 11/01/2012 Discontinued Route: SUB-Q, Drug form: SOLN, TID-Before Meals, Start date: 10/28/12 7:30:00, Stop date: 11/26/12 16:30:00 lisinopril 40 mg, 2 tab, Route: 10/24/2012 10/27/2012 Discontinued PO, Drug form: TAB, Daily, Dosing Weight 78.2, kg, Start date: 10/24/12 12:16:00, Stop date: 11/23/12 9:00:00 lisinopril 5 mg, 1 tab, Route: 10/24/2012 10/24/2012 Discontinued PO, Drug form: TAB, Daily, Dosing Weight 78.2, kg, Priority: NOW, Start date: 10/24/12 10:53:00, Duration: 30 day, Stop date: 11/23/12 9:00:00 Sodium Chloride 0.9% IV 1,000 mL, Rate: 100 10/23/2012 10/23/2012 Deleted 1,000 mL + M.V.I.-12 10 ml/hr, Infuse over: mL Daily + folic acid 10.1 hr, Route: IV, IV 1 mg Daily + kg, Total Volume: thiamine IV 1 1,011.2, Start date: 10/23/12 8:41:00, Duration: 3 day, Stop date: 10/26/12 8:40:00 heparin 4,700 unit, 4.7 mL, 10/23/2012 10/24/2012 Discontinued Route: IV, Drug form: INJ, PRN, PRN Abnormal Lab Result, Start date: 10/23/12 19:40:00, Duration: 30 day, Stop date: 11/22/12 20:39:00 Zocor 40 mg, 1 tab, Route: 10/23/2012 11/01/2012 Discontinued PO, Drug form: TAB, Bedtime, Dosing Weight 113.636, kg, Start date: 10/23/12 21:00:00, Duration: 30 day, Stop date: 11/21/12 21:00:00 D5W 1/2NS + KCL 20mEq/L 1,000 mL, Rate: 150 10/22/2012 10/23/2012 Voided With Results 1000ml (Premix) 1,000 ml/hr, Infuse over: mL 6.7 hr, Route: IV, kg, Total Volume: 1,000, Start date: 10/22/12 22:32:00, Duration: 30 day, Stop date: 11/21/12 22:31:00 aspirin 81 mg tablet, 81 mg, 1 tab, Route: 10/24/2012 11/01/2012 Discontinued enteric coated PO, Drug form: ECTAB, Daily, Dosing Weight 78.2, kg, Priority: NOW, Start date: 10/24/12 10:43:00, Duration: 30 day, Stop date: 11/23/12 9:00:00 Reglan 5 mg, 1 mL, Route: 10/27/2012 10/27/2012 Canceled IV, Drug form: INJ, Q8H, Dosing Weight 78.2, kg, Start date: 10/27/12 16:00:00, Duration: 30 day, Stop date: 11/26/12 8:00:00 aspirin 325 mg, 1 tab, 10/23/2012 10/24/2012 Discontinued Route: PO, Drug form: TAB, Daily, Dosing Weight 113.636, kg, Priority: NOW, Start date: 10/23/12 19:03:00, Duration: 30 day, Stop date: 11/22/12 9:00:00 Lactated Ringers IV 1,000 mL, Rate: 250 10/25/2012 11/01/2012 Discontinued 1,000 mL ml/hr, Infuse over: 4 hr, Route: IV, kg, Total Volume: 1,000, Start date: 10/25/12 5:50:00, Duration: 30 day, Stop date: 11/24/12 5:49:00 Lactated Ringers 1,000 mL, Rate: 100 10/25/2012 10/25/2012 Completed (Bolus) IV 1,000 mL ml/hr, Infuse over: 10 hr, Route: IV, kg, Total Volume: 1,000, Start date: 10/25/12 5:50:00, Duration: 1 doses or times, Stop date: 10/25/12 15:49:00 Haldol 2 mg, 0.4 mL, Route: 10/30/2012 10/30/2012 Completed IV, Drug form: INJ, ONCE, Dosing Weight 78.2, kg, Start date: 10/30/12 5:42:00, Stop date: 10/30/12 5:42:00 nitroglycerin 50 mg 250 mL, Rate: as 10/24/2012 10/25/2012 Discontinued directed, Route: IV, kg, Total Volume: 250, Start date: 10/24/12 10:00:00, Duration: 30 day, Stop date: 11/23/12 9:59:00 metoprolol tartrate 25 mg, 1 tab, Route: 10/24/2012 10/25/2012 Discontinued PO, Drug form: TAB, Q8H, Dosing Weight 78.2, kg, Start date: 10/24/12 16:00:00, Duration: 30 day, Stop date: 11/23/12 8:00:00 morphine Sulfate 4 mg, 1 mL, Route: 10/24/2012 10/24/2012 Completed IVP, Drug form: INJ, ONCE, Dosing Weight 78.2, kg, Start date: 10/24/12 16:56:00, Stop date: 10/24/12 16:56:00 Dextrose 50% Syringe 25 gm, 50 ml, Route: 10/23/2012 10/26/2012 Discontinued IVP, Drug Form: INJ, Dosing Weight 113.636, kg, PRN, PRN Blood Glucose Results, Start date: 10/23/12 10:16:00, Duration: 30 day, Stop date: 11/22/12 11:15:00 Insulin (regular) 100 mL, Rate: 10/23/2012 10/26/2012 Discontinued Titrate IV additive 0.1units/kg/hour 100 unit + Sodium Titrate, Dosing Chloride 0.9% (titrate) Weight 113.636, kg, 100 mL Route: IV, Total Volume: 101, Duration: 30 day, Stop date: 11/22/12 10:16:00, Replace Every: 24 hr Sodium Chloride 0.9% IV 1,000 mL, Rate: 250 10/23/2012 10/23/2012 Discontinued 1,000 mL ml/hr, Infuse over: 4 hr, Route: IV, kg, Total Volume: 1,000, Start date: 10/23/12 10:16:00, Stop date: 11/22/12 10:20:00 labetalol 20 mg, Route: IVP, 10/27/2012 10/27/2012 Completed Drug form: INJ, ONCE, Dosing Weight 78.2, kg, Start date: 10/27/12 19:28:00, Stop date: 10/27/12 19:28:00 insulin detemir 16 unit, 0.16 mL, 10/31/2012 11/01/2012 Discontinued Route: SUB-Q, Drug form: INJ, Q12H, Dosing Weight 78.2, kg, Start date: 10/31/12 21:00:00, Duration: 30 day, Stop date: 11/30/12 9:00:00 metoprolol 5 mg/5 ml 5 mg, 5 mL, Route: 10/23/2012 10/24/2012 Discontinued INJ IVP, Drug form: INJ, Q3H, Dosing Weight 113.636, kg, PRN Hypertension, Start date: 10/23/12 0:35:00, Duration: 30 day, Stop date: 11/22/12 0:34:00 normal saline 0.9% IV 1,000 mL, Rate: 150 10/23/2012 10/23/2012 Discontinued 1,000 mL ml/hr, Infuse over: 6.7 hr, Route: IV, kg, Total Volume: 1,000, Start date: 10/23/12 5:07:00, Duration: 30 day, Stop date: 11/22/12 5:06:00 Toprol-XL 100 mg oral 100 mg, 1 tab, 10/27/2012 11/01/2012 Discontinued tablet, extended Route: PO, Drug release form: ERTAB, Daily, Start date: 10/27/12 9:00:00, Duration: 30 day, Stop date: 11/25/12 9:00:00 metoprolol tartrate 12.5 mg, 1 ea, 10/24/2012 10/24/2012 Discontinued Route: PO, Drug form: TAB, Q12H, Dosing Weight 78.2, kg, Priority: NOW, Start date: 10/24/12 10:42:00, Duration: 30 day, Stop date: 11/23/12 9:00:00 Protonix 40 mg, Route: IVP, 10/25/2012 11/01/2012 Discontinued Drug form: INJ, Daily, Dosing Weight 78.2, kg, Start date: 10/25/12 9:00:00, Duration: 30 day, Stop date: 11/23/12 9:00:00 Saline Flush 0.9% 10 mL, Route: IVP, 10/24/2012 11/01/2012 Discontinued Drug Form: INJ, Dosing Weight 78.2, kg, PRN, PRN Line Flush, Start date: 10/24/12 13:41:00, Duration: 30 day, Stop date: 11/23/12 13:41:00 Saline Flush 0.9% 10 mL, Route: IVP, 10/24/2012 11/01/2012 Discontinued Drug Form: INJ, Dosing Weight 78.2, kg, Q12H, Start date: 10/24/12 21:00:00, Duration: 30 day, Stop date: 11/23/12 9:00:00 potassium chloride 40 mEq, 2 tab, 10/24/2012 10/24/2012 Discontinued Route: PO, Drug form: ERTAB, ONCE, Dosing Weight 78.2, kg, Priority: NOW, Start date: 10/24/12 10:50:00, Stop date: 10/24/12 10:50:00 NS (Bolus) IV 1,000 mL, 0 ml/hr, 10/23/2012 10/23/2012 Completed Route: IV, Drug Form: INJ, Dosing Weight 113.636, kg, ONCE, STAT, Start date: 10/23/12 5:06:00, Duration: 1 doses or times, Stop date: 10/23/12 5:06:00 Neutra-Phos 2 pkt, Route: PO, 10/24/2012 10/24/2012 Completed Drug Form: PDR/REC, Dosing Weight 78.2, kg, ONCE, Start date: 10/24/12 20:35:00, Stop date: 10/24/12 20:35:00 tramadol 50 mg oral 50 mg, 1 tab, PO, 10/31/2012 Ordered tablet Q4H, PRN, 30 tab, as needed for pain, Substitution Allowed, TAB metoprolol 5 mg/5 ml 5 mg, 5 mL, Route: 10/23/2012 10/23/2012 Completed INJ IV, Drug form: INJ, ONCE, Dosing Weight 113.636, kg, Priority: STAT, Start date: 10/23/12 21:01:00, Stop date: 10/23/12 21:01:00 insulin aspart 7 unit, Route: 10/26/2012 10/28/2012 Discontinued SUB-Q, Drug form: SOLN, TID-Before Meals, Dosing Weight 78.2, kg, Start date: 10/26/12 12:00:00, Duration: 30 day, Stop date: 11/25/12 11:30:00 magnesium sulfate 2 gm, 50 mL, Route: 10/24/2012 10/24/2012 Completed IVPB, Drug form: INJ, ONCE, Dosing Weight 78.2, kg, Total dose=2 gm, Priority: NOW, Start date: 10/24/12 10:50:00, Duration: 1 doses or times, Stop date: 10/24/12 10:50:00 labetalol 20 mg, 4 mL, Route: 10/27/2012 10/27/2012 Completed IVP, Drug form: INJ, ONCE, Dosing Weight 78.2, kg, Start date: 10/27/12 17:28:00, Stop date: 10/27/12 17:28:00 Benadryl 25 mg, 1 cap, Route: 10/27/2012 10/27/2012 Completed PO, Drug form: CAP, ONCE, Dosing Weight 78.2, kg, Start date: 10/27/12 17:28:00, Stop date: 10/27/12 17:28:00 D5W 1/2NS 1,000 mL 1,000 mL, Rate: 200 10/23/2012 10/24/2012 Discontinued ml/hr, Infuse over: 5 hr, Route: IV, kg, Total Volume: 1,000, Start date: 10/23/12 14:21:00, Stop date: 11/22/12 14:20:00 Insulin regular 10 unit, 0.1 mL, 10/26/2012 10/26/2012 Completed Route: SUB-Q, Drug form: SOLN, ONCE, Dosing Weight 78.2, kg, Start date: 10/26/12 10:32:00, Stop date: 10/26/12 10:32:00 Neutra-Phos 2 pkt, Route: PO, 10/25/2012 10/25/2012 Completed Drug Form: PDR/REC, Dosing Weight 78.2, kg, ONCE, Start date: 10/25/12 1:07:00, Stop date: 10/25/12 1:07:00 insulin lispro 6 unit, Route: 10/25/2012 10/25/2012 Discontinued SUB-Q, TID-Before Meals, Dosing Weight 78.2, kg, Start date: 10/25/12 7:30:00, Duration: 30 day, Stop date: 11/23/12 16:30:00 magnesium sulfate 2 gm, 50 mL, Route: IVPB, Drug form: INJ, ONCE, Dosing Weight 113.636, kg, Start date: 10/23/12 16:10:00, Duration: 1 doses or times, Stop date: 10/23/12 16:10:00, For Mg=1.8 - 2 mg/dL 10/23/2012 10/23/2012 Completed For Mg=1.8 - 2 mg/dL insulin detemir 25 unit, 0.25 mL, 10/25/2012 10/28/2012 Discontinued Route: SUB-Q, Drug form: INJ, Q12H, Dosing Weight 78.2, kg, Priority: NOW, Start date: 10/25/12 1:06:00, Stop date: 11/23/12 21:00:00 magnesium sulfate 2 gm, 50 mL, Route: 10/28/2012 10/28/2012 Completed IVPB, Drug form: INJ, Q2H, Dosing Weight 78.2, kg, Total dose=4 gm, Start date: 10/28/12 4:00:00, Duration: 2 doses or times, Stop date: 10/28/12 6:00:00 calcium gluconate + 1,000 mg, 10 mL, 10/28/2012 10/28/2012 Completed Sodium Chloride 0.9% IV Route: IVPB, Drug 100 mL form: INJ, ONCE, Dosing Weight 78.2, kg, Start date: 10/28/12 3:53:00, Stop date: 10/28/12 3:53:00 potassium chloride 20 mEq, 100 mL, 10/28/2012 10/28/2012 Completed Route: IVPB, Drug form: INJ, Q2H, Dosing Weight 78.2, kg, Total dose=40 mEq, Start date: 10/28/12 4:00:00, Duration: 2 doses or times, Stop date: 10/28/12 6:00:00 Lasix 20 mg, 2 mL, Route: 10/28/2012 10/28/2012 Completed IV, Drug form: INJ, ONCE, Dosing Weight 78.2, kg, Start date: 10/28/12 9:25:00, Stop date: 10/28/12 9:25:00 potassium chloride 20 mEq, 100 mL, 10/24/2012 10/24/2012 Completed Route: IVPB, Drug form: INJ, ONCE, Dosing Weight 78.2, kg, Start date: 10/24/12 20:34:00, Stop date: 10/24/12 20:34:00 metoprolol tartrate 25 mg, 1 tab, Route: 10/26/2012 10/26/2012 Discontinued PO, Drug form: TAB, Q12H, Dosing Weight 78.2, kg, Start date: 10/26/12 9:00:00, Duration: 30 day, Stop date: 11/24/12 21:00:00 heparin 2,300 unit, 2.3 mL, 10/23/2012 10/24/2012 Discontinued Route: IV, Drug form: INJ, PRN, PRN Abnormal Lab Result, Start date: 10/23/12 19:37:00, Duration: 30 day, Stop date: 11/22/12 20:36:00 Toradol 15 mg/mL 15 mg, 0.5 mL, 10/29/2012 10/29/2012 Completed injectable solution Route: IV, Drug form: INJ, ONCE, Dosing Weight 78.2, kg, Start date: 10/29/12 6:54:00, Stop date: 10/29/12 6:54:00 insulin aspart 9 unit, 0.09 mL, 10/25/2012 10/31/2012 Discontinued Route: SUB-Q, Drug form: SOLN, TID-Before Meals, Dosing Weight 78.2, kg, PRN Blood Glucose Results, Start date: 10/25/12 3:53:00, Duration: 30 day, Stop date: 11/24/12 3:52:00 insulin aspart 6 unit, 0.06 mL, 10/25/2012 10/31/2012 Discontinued Route: SUB-Q, Drug form: SOLN, TID-Before Meals, Dosing Weight 78.2, kg, PRN Blood Glucose Results, Start date: 10/25/12 3:53:00, Duration: 30 day, Stop date: 11/24/12 3:52:00 insulin aspart 3 unit, 0.03 mL, 10/25/2012 10/31/2012 Discontinued Route: SUB-Q, Drug form: SOLN, TID-Before Meals, Dosing Weight 78.2, kg, PRN Blood Glucose Results, Start date: 10/25/12 3:53:00, Duration: 30 day, Stop date: 11/24/12 3:52:00 insulin aspart 15 unit, 0.15 mL, 10/25/2012 10/31/2012 Discontinued Route: SUB-Q, Drug form: SOLN, TID-Before Meals, Dosing Weight 78.2, kg, PRN Blood Glucose Results, Start date: 10/25/12 3:53:00, Duration: 30 day, Stop date: 11/24/12 3:52:00 insulin aspart 12 unit, 0.12 mL, 10/25/2012 10/31/2012 Discontinued Route: SUB-Q, Drug form: SOLN, TID-Before Meals, Dosing Weight 78.2, kg, PRN Blood Glucose Results, Start date: 10/25/12 3:53:00, Duration: 30 day, Stop date: 11/24/12 3:52:00 glucagon 1 mg, Route: IM, 10/25/2012 11/01/2012 Discontinued Drug form: PDR/INJ, PRN, Dosing Weight 78.2, kg, PRN Blood Glucose Results, Start date: 10/25/12 3:53:00, Duration: 30 day, Stop date: 11/24/12 4:52:00 Dextrose 50% Syringe 12.5 gm, 25 mL, 10/25/2012 11/01/2012 Discontinued Route: IVP, Drug Form: INJ, Dosing Weight 78.2, kg, PRN, PRN Blood Glucose Results, Start date: 10/25/12 3:53:00, Duration: 30 day, Stop date: 11/24/12 4:52:00 Dextrose 50% Syringe 25 gm, 50 mL, Route: 10/25/2012 11/01/2012 Discontinued IVP, Drug Form: INJ, Dosing Weight 78.2, kg, PRN, PRN Blood Glucose Results, Start date: 10/25/12 3:53:00, Duration: 30 day, Stop date: 11/24/12 4:52:00 insulin aspart 6 unit, 0.06 mL, 10/31/2012 11/01/2012 Discontinued Route: SUB-Q, Drug form: SOLN, TID-Before Meals, Dosing Weight 78.2, kg, PRN Blood Glucose Results, Start date: 10/31/12 8:40:00, Duration: 30 day, Stop date: 11/30/12 8:39:00 insulin aspart 4 unit, 0.04 mL, 10/31/2012 11/01/2012 Discontinued Route: SUB-Q, Drug form: SOLN, TID-Before Meals, Dosing Weight 78.2, kg, PRN Blood Glucose Results, Start date: 10/31/12 8:40:00, Duration: 30 day, Stop date: 11/30/12 8:39:00 insulin aspart 2 unit, 0.02 mL, 10/31/2012 11/01/2012 Discontinued Route: SUB-Q, Drug form: SOLN, TID-Before Meals, Dosing Weight 78.2, kg, PRN Blood Glucose Results, Start date: 10/31/12 8:40:00, Duration: 30 day, Stop date: 11/30/12 8:39:00 insulin aspart 10 unit, 0.1 mL, 10/31/2012 11/01/2012 Discontinued Route: SUB-Q, Drug form: SOLN, TID-Before Meals, Dosing Weight 78.2, kg, PRN Blood Glucose Results, Start date: 10/31/12 8:40:00, Duration: 30 day, Stop date: 11/30/12 8:39:00 insulin aspart 8 unit, 0.08 mL, 10/31/2012 11/01/2012 Discontinued Route: SUB-Q, Drug form: SOLN, TID-Before Meals, Dosing Weight 78.2, kg, PRN Blood Glucose Results, Start date: 10/31/12 8:40:00, Duration: 30 day, Stop date: 11/30/12 8:39:00 Effient 10 mg, 1 tab, Route: 10/24/2012 11/01/2012 Discontinued PO, Drug form: TAB, Daily, Dosing Weight 78.2, kg, Start date: 10/24/12 11:00:00, Duration: 30 day, Stop date: 11/23/12 9:00:00 Phenergan 25 mg, 1 mL, Route: 10/22/2012 11/01/2012 Discontinued IVPB, Drug form: INJ, Q6H, PRN Nausea, Start date: 10/22/12 22:31:00, Stop date: 11/21/12 22:30:00 heparin 4,000 unit, 4 mL, 10/23/2012 10/23/2012 Completed Route: IV, Drug form: INJ, ONCE, Start date: 10/23/12 19:31:00, Stop date: 10/23/12 19:31:00 Omnipaque 350mg/ml 130 mL, Route: IVP, Drug Form: SOLN, Dosing Weight 113.636 , kg, ONCALL, STAT, Start date: 10/23/12 10:42:00, Duration: 1 doses or times, Dose=2.2ml/kg, Max [id number] -- "To be infused by Radiology Staff ONLY" 10/2310/23/2012 Completed Dose=2.2ml/kg, Max redo=[id number] -- "To be infused by Radiology Staff ONLY" Dextrose 50% Syringe 25 mL, Route: IVP, 10/25/2012 10/25/2012 Discontinued Dosing Weight 78.2, kg, PRN, PRN Blood Glucose Results, Start date: 10/25/12 3:52:00, Duration: 30 day, Stop date: 11/24/12 4:51:00 glucagon 1 mg, Route: IM, 10/25/2012 10/25/2012 Discontinued PRN, Dosing Weight 78.2, kg, PRN Blood Glucose Results, Start date: 10/25/12 3:52:00, Duration: 30 day, Stop date: 11/24/12 4:51:00 Dextrose 50% Syringe 50 mL, Route: IVP, 10/25/2012 10/25/2012 Discontinued Dosing Weight 78.2, kg, PRN, PRN Blood Glucose Results, Start date: 10/25/12 3:52:00, Duration: 30 day, Stop date: 11/24/12 4:51:00 Zofran ODT 8 mg, 1 tab, Route: 10/23/2012 11/01/2012 Discontinued PO, Drug form: TABDIS, Q8H, Dosing Weight 113.636, kg, PRN Nausea, Start date: 10/23/12 0:02:00, Stop date: 11/22/12 0:01:00 clonazepam 0.5 mg, 1 tab, 10/24/2012 10/24/2012 Completed Route: PO, Drug form: TAB, ONCE, Dosing Weight 78.2, kg, Start date: 10/24/12 15:03:00, Stop date: 10/24/12 15:03:00 Phenergan 25 mg, 1 tab, Route: 10/30/2012 11/01/2012 Discontinued PO, Drug form: TAB, Q6H, Dosing Weight 78.2, kg, PRN Nausea & Vomiting, Start date: 10/30/12 8:06:00, Duration: 30 day, Stop date: 11/29/12 8:05:00 Toradol 15 mg/mL 15 mg, 0.5 mL, 10/29/2012 10/29/2012 Completed injectable solution Route: IV, Drug form: INJ, ONCE, Dosing Weight 78.2, kg, Start date: 10/29/12 1:07:00, Stop date: 10/29/12 1:07:00 tramadol 50 mg oral 50 mg, 1 tab, Route: 10/29/2012 11/01/2012 Discontinued tablet PO, Drug form: TAB, Q4H, Dosing Weight 78.2, kg, PRN as needed for pain, Start date: 10/29/12 9:45:00, Duration: 30 day, Stop date: 11/28/12 9:44:00 Vital Signs Most recent to oldest 1 2 3 [Reference Range]: Height 162.56 cm 162.56 cm (10/22/2012 22:51:00) (10/22/2012 22:09:00) Current Weight 105.001 kg (10/30/2012 05:06:00) Temperature Oral 99.7 DegF 96.7 DegF 98.1 DegF [96.4-99.1 DegF] *HI* (10/31/2012 08:16:00) (10/31/2012 04:23:00) (10/31/2012 12:00:00) Systolic Blood Pressure 131 mmHg 125 mmHg 155 mmHg [90-140 mmHg] (10/31/2012 20:00:00) (10/31/2012 18:00:00) *HI* (10/31/2012 17:00:00) Diastolic Blood Pressure 62 mmHg 62 mmHg 54 mmHg [60-90 mmHg] (10/31/2012 20:00:00) (10/31/2012 18:00:00) *LOW* (10/31/2012 17:00:00) Respiratory Rate [14-20 19 BRMIN 19 BRMIN 19 BRMIN BRMIN] (10/31/2012 04:00:00) (10/30/2012 22:19:00) (10/30/2012 20:26:00) Peripheral Pulse Rate 126 bpm 130 bpm 119 bpm [60-100 bpm] *HI* *HI* *HI* (10/23/2012 08:00:00) (10/23/2012 05:09:00) (10/22/2012 22:40:00) Weight 78.2 kg 78.2 kg 113.636 kg (10/23/2012 20:50:00) (10/23/2012 20:50:00) (10/22/2012 22:51:00) Results BACTERIAL - SEROLOGY Most recent to [Reference Range]: 1 2 3 MRSA by PCR Positive 1, 2 *ABN* (10/23/2012 11:37:00) 1Result Comment: "Significant Findings called to Say at 0124 10/24/12 by Robert Bell Read Back OK."2Interpretive Data: Interpretive Data: The [employer] LightCycler MRSA assay is a qualitative test for thedirect detection of nasal colonization with methicillin-resistant Staphylococcus aureus (MRSA) to aid in the prevention and control of MRSA infections in healthcare settings. A positive result does notindicate an infection or require treatment. A negative result does not exclude colonization or infection. The polymerase chain reaction (PCR) assay detects a proprietary sequence indicative of the integration of the SCCmec cassette into the Staphylococcus aureus chromosome, indicating the presence of MRSA DNA. The assay utilizes FDA cleared IVD reagents. Performance characteristics have been verified by the [facility] within the [facility]. The [facility] is authorized under the Clinical Laboratory Improvement Amendment of 1988 (CLIA-88) to performhigh complexity testing.BEDSIDE GLUCOSE TESTING Most recent to oldest 1 2 3 [Reference Range]: Gluc POC Lifscn [70-99 >400 mg/dL 3 237 mg/dL 4 357 mg/dL 5 mg/dL] *CRIT* *HI* *HI* (10/31/2012 21:53:00) (10/31/2012 16:43:00) (10/31/2012 12:02:00) Comment1 Notify RN/MD Notify RN/MD Notify RN/MD *NA* *NA* *NA* (10/31/2012 21:53:00) (10/31/2012 12:02:00) (10/30/2012 21:36:00) 3Interpretive Data: Upper Reportable Limit: 200 mg/dL.4Interpretive Data: Upper Reportable Limit: 200 mg/dL.5Interpretive Data: Upper Reportable Limit: 200 mg/dL.URINALYSIS Most recent to oldest [Reference Range]: 1 2 3 UA Turbidity [Clear] Clear (10/23/2012 00:01:00) UA Color [Yellow] Light Yellow *NA* (10/23/2012 00:01:00) UA pH [5.0-8.0] 5.0 (10/23/2012 00:01:00) UA Spec Grav [<=1.030] 1.015 (10/23/2012 00:01:00) UA Glucose [Negative mg/dL] >=1000 mg/dL *ABN* (10/23/2012 00:01:00) UA Blood [Negative] Negative (10/23/2012 00:01:00) UA Ketones [Negative mg/dL] >=150 mg/dL *ABN* (10/23/2012 00:01:00) UA Protein [Negative mg/dL] 10 mg/dL *ABN* (10/23/2012 00:01:00) UA Urobilinogen [0.1-1.0 mg/dL] <=1.0 mg/dL *NA* (10/23/2012 00:01:00) UA Bili [Negative] Negative *NA* (10/23/2012 00:01:00) UA Leuk Est [Negative] Negative (10/23/2012 00:01:00) UA Nitrite [Negative] Negative (10/23/2012 00:01:00) UA WBC [0-5 /HPF] 1 /HPF (10/23/2012 00:01:00) UA Sq Epi [Few /LPF] Moderate /LPF *ABN* (10/23/2012 00:01:00) VIRAL - SEROLOGY Most recent to oldest [Reference Range]: 1 2 3 Influ A [Negative] Negative (10/27/2012 18:02:02) Influ B [Negative] Negative 6 (10/27/2012 18:02:02) 6Interpretive Data: Due to the low sensitivity of this test a negative result does not exclude influenza virus infection. A diagnosis of influenza should be considered based on a patient's clinical presentation and empiric antiviral treatment should be considered, if indicated. If more conclusive testing is desired, follow-up confirmatory testing with either viral culture or PCR is warranted.BLOOD BANK RESULTS Most recent to oldest [Reference Range]: 1 2 3 ABO/Rh A POS *Unknown* (10/23/2012 01:00:00) Antibody Scrn Negative (10/23/2012 01:00:00) CHEMISTRY Most recent to oldest 1 2 3 [Reference Range]: Sodium Lvl [135-145 mEq/L] 133 mEq/L 132 mEq/L 139 mEq/L *LOW* *LOW* (10/29/2012 00:56:00) (10/31/2012 04:00:00) (10/30/2012 00:20:00) Potassium Lvl [3.5-5.1 3.9 mEq/L 3.8 mEq/L 4.4 mEq/L mEq/L] (10/31/2012 04:00:00) (10/30/2012 00:20:00) (10/29/2012 00:56:00) Chloride Lvl [95-109 mEq/L] 94 mEq/L 92 mEq/L 99 mEq/L *LOW* *LOW* (10/29/2012 00:56:00) (10/31/2012 04:00:00) (10/30/2012 00:20:00) CO2 [24-32 mEq/L] 26 mEq/L 29 mEq/L 27 mEq/L (10/31/2012 04:00:00) (10/30/2012 00:20:00) (10/29/2012 00:56:00) AGAP [10.0-20.0 mEq/L] 16.9 mEq/L 14.8 mEq/L 17.4 mEq/L (10/31/2012 04:00:00) (10/30/2012 00:20:00) (10/29/2012 00:56:00) Creatinine Lvl [0.5-1.4 1.0 mg/dL 0.8 mg/dL 0.7 mg/dL mg/dL] (10/31/2012 04:00:00) (10/30/2012 00:20:00) (10/29/2012 00:56:00) eGFR 67 mL/min/1.73m2 7 88 mL/min/1.73m2 8 104 mL/min/1.73m2 9 *NA* *NA* *NA* (10/31/2012 04:00:00) (10/30/2012 00:20:00) (10/29/2012 00:56:00) BUN [7-22 mg/dL] 8 mg/dL 6 mg/dL 3 mg/dL (10/31/2012 04:00:00) *LOW* *LOW* (10/30/2012 00:20:00) (10/29/2012 00:56:00) B/C Ratio [6-25] 16 10 (10/23/2012 15:05:00) (10/23/2012 01:05:00) Glucose Lvl [70-99 mg/dL] 75 mg/dL 10 91 mg/dL 11 90 mg/dL 12 (10/31/2012 04:00:00) (10/30/2012 00:20:00) (10/29/2012 00:56:00) Total Protein [6.4-8.4 g/dL] 6.2 g/dL 5.8 g/dL 7.2 g/dL *LOW* *LOW* (10/23/2012 15:05:00) (10/28/2012 01:10:00) (10/24/2012 16:53:00) Albumin Lvl [3.5-5.0 g/dL] 2.8 g/dL 2.7 g/dL 3.3 g/dL *LOW* *LOW* *LOW* (10/28/2012 01:10:00) (10/24/2012 16:53:00) (10/23/2012 15:05:00) Globulin [2.0-4.0 g/dL] 3.4 g/dL 3.1 g/dL 3.9 g/dL (10/28/2012 01:10:00) (10/24/2012 16:53:00) (10/23/2012 15:05:00) A/G Ratio [0.7-1.6] 0.8 0.9 0.8 (10/28/2012 01:10:00) (10/24/2012 16:53:00) (10/23/2012 15:05:00) Calcium Lvl [8.5-10.5 mg/dL] 8.3 mg/dL 8.5 mg/dL 8.9 mg/dL *LOW* (10/30/2012 00:20:00) (10/29/2012 00:56:00) (10/31/2012 04:00:00) Phosphorus [2.5-4.5 mg/dL] 4.2 mg/dL 3.8 mg/dL 4.1 mg/dL (10/31/2012 04:00:00) (10/30/2012 00:20:00) (10/29/2012 00:56:00) Magnesium Lvl [1.8-2.4 1.9 mg/dL 1.9 mg/dL 2.1 mg/dL mg/dL] (10/31/2012 04:00:00) (10/30/2012 00:20:00) (10/29/2012 00:56:00) ALT [0-65 unit/L] 23 unit/L 15 unit/L 23 unit/L (10/28/2012 01:10:00) (10/24/2012 16:53:00) (10/23/2012 15:05:00) AST [0-37 unit/L] 24 unit/L 41 unit/L 90 unit/L (10/28/2012 01:10:00) *HI* *HI* (10/24/2012 16:53:00) (10/23/2012 15:05:00) Alk Phos [39-136 unit/L] 85 unit/L 83 unit/L 94 unit/L (10/28/2012 01:10:00) (10/24/2012 16:53:00) (10/23/2012 15:05:00) Bili Total [0.2-1.3 mg/dL] 0.3 mg/dL 0.5 mg/dL 0.5 mg/dL (10/28/2012 01:10:00) (10/24/2012 16:53:00) (10/23/2012 15:05:00) Bili Direct [0.0-0.3 mg/dL] 0.1 mg/dL 0.2 mg/dL 0.4 mg/dL (10/28/2012 01:10:00) (10/24/2012 16:53:00) *HI* (10/23/2012 01:05:00) Bili Indirect [0.0-1.0 0.2 mg/dL 0.3 mg/dL mg/dL] (10/28/2012 01:10:00) (10/24/2012 16:53:00) Amylase Lvl [25-115 unit/L] 27 unit/L 28 unit/L (10/28/2012 01:10:00) (10/23/2012 01:05:00) Lipase Lvl [73-393 unit/L] 58 unit/L 54 unit/L *LOW* *LOW* (10/28/2012 01:10:00) (10/23/2012 01:05:00) Ketone Quantitative [<=0.27 0.07 mmol/L 2.61 mmol/L 0.93 mmol/L mmol/L] (10/24/2012 07:42:00) *HI* *HI* (10/24/2012 02:36:00) (10/23/2012 20:33:00) Lactic Acid Lvl [0.5-2.2 0.7 mMol/L 0.6 mMol/L 0.6 mMol/L mMol/L] (10/24/2012 11:23:00) (10/24/2012 02:36:00) (10/23/2012 16:25:00) Osmolality [280-300 mOsm/kg] 292 mOsm/kg 309 mOsm/kg (10/23/2012 15:05:00) *HI* (10/23/2012 10:25:00) Vitamin D, 25-OH, Total 16 ng/mL 13 [30-100 ng/mL] *LOW* (10/25/2012 16:49:00) Total CK [12-191 unit/L] 150 unit/L 170 unit/L 14 254 unit/L (10/24/2012 11:23:00) (10/24/2012 07:42:00) *HI* (10/24/2012 02:36:00) CK MB [0.5-3.6 ng/mL] 16.5 ng/mL 17.8 ng/mL 30.9 ng/mL *HI* *HI* *HI* (10/24/2012 11:23:00) (10/24/2012 07:42:00) (10/24/2012 02:36:00) CK MB Index [0.0-2.5] 11.0 10.5 12.2 *HI* *HI* *HI* (10/24/2012 11:23:00) (10/24/2012 07:42:00) (10/24/2012 02:36:00) Troponin-T [0.000-0.100 0.693 ng/mL 15 0.688 ng/mL 16 0.750 ng/mL 17 ng/mL] *CRIT* *CRIT* *CRIT* (10/25/2012 00:15:00) (10/24/2012 11:23:00) (10/24/2012 07:42:00) Troponin-I [0.00-0.40 ng/mL] 5.43 ng/mL 18 7.61 ng/mL 19 7.60 ng/mL 20 *CRIT* *CRIT* *CRIT* (10/25/2012 00:15:00) (10/24/2012 11:23:00) (10/24/2012 07:42:00) Myoglobin [25-72 ng/mL] 128 ng/mL *HI* (10/23/2012 15:05:00) CHD Risk [3.90-5.80] 4.06 (10/25/2012 00:15:00) Chol [120-200 mg/dL] 142 mg/dL (10/25/2012 00:15:00) Trig [0-200 mg/dL] 101 mg/dL (10/25/2012 00:15:00) HDL [>=35 mg/dL] 35 mg/dL (10/25/2012 00:15:00) LDL [0-129 mg/dL] 87 mg/dL (10/25/2012 00:15:00) Hgb A1C 8.4 % 21 *NA* (10/25/2012 00:15:00) Ca Ion mgdL [4.65-5.20 4.44 mg/dL 4.76 mg/dL 3.96 mg/dL mg/dL] *LOW* (10/30/2012 00:20:00) *LOW* (10/31/2012 04:00:00) (10/29/2012 00:56:00) Ca Ion [1.16-1.30 mMol/L] 1.11 mMol/L 1.19 mMol/L 0.99 mMol/L *LOW* (10/30/2012 00:20:00) *LOW* (10/31/2012 04:00:00) (10/29/2012 00:56:00) Ca Norm [1.16-1.30 mMol/L] 1.16 mMol/L 1.23 mMol/L 1.01 mMol/L (10/31/2012 04:00:00) (10/30/2012 00:20:00) *LOW* (10/29/2012 00:56:00) Ca Norm mgdL [4.65-5.20 4.64 mg/dL 4.92 mg/dL 4.04 mg/dL mg/dL] *LOW* (10/30/2012 00:20:00) *LOW* (10/31/2012 04:00:00) (10/29/2012 00:56:00) POC A Hct [36.0-48.0 %] 35.0 % 37.0 % *LOW* (10/23/2012 10:17:00) (10/23/2012 16:20:00) POC A Ca Ion [1.16-1.30 1.20 mMol/L 1.18 mMol/L mMol/L] (10/23/2012 16:20:00) (10/23/2012 10:17:00) POC A K [3.5-5.1 mEq/L] 3.8 mEq/L 4.5 mEq/L (10/23/2012 16:20:00) (10/23/2012 10:17:00) POC A Source ART ART ART *NA* *NA* *NA* (10/24/2012 12:07:00) (10/23/2012 16:20:00) (10/23/2012 10:17:00) POC A Temp 37.0 DegC 37.0 DegC 37.0 DegC *NA* *NA* *NA* (10/24/2012 12:07:00) (10/23/2012 16:20:00) (10/23/2012 10:17:00) POC A pH [7.35-7.45] 7.35 7.35 7.27 *LOW* *LOW* *LOW* (10/24/2012 12:07:00) (10/23/2012 16:20:00) (10/23/2012 10:17:00) POC A PCO2 [35-45 mmHg] 34 mmHg 36 mmHg 30 mmHg *LOW* (10/23/2012 16:20:00) *CRIT* (10/24/2012 12:07:00) (10/23/2012 10:17:00) POC A PO2 [80-100 mmHg] 103 mmHg 144 mmHg 123 mmHg *HI* *HI* *HI* (10/24/2012 12:07:00) (10/23/2012 16:20:00) (10/23/2012 10:17:00) POC A HCO3 [22-26 mMol/L] 19 mMol/L 20 mMol/L 14 mMol/L *LOW* *LOW* *LOW* (10/24/2012 12:07:00) (10/23/2012 16:20:00) (10/23/2012 10:17:00) POC A BE [-2-2 mMol/L] -6 mMol/L -5 mMol/L -12 mMol/L *LOW* *LOW* *LOW* (10/24/2012 12:07:00) (10/23/2012 16:20:00) (10/23/2012 10:17:00) POC A O2 Sat [95.0-100.0 %] 98.0 % 99.0 % 98.0 % (10/24/2012 12:07:00) (10/23/2012 16:20:00) (10/23/2012 10:17:00) POC A Glu [70-99 mg/dL] 159 mg/dL >425 mg/dL *HI* *CRIT* (10/23/2012 16:20:00) (10/23/2012 10:17:00) POC A LA [0.5-2.2 mMol/L] 0.6 mMol/L 1.0 mMol/L (10/23/2012 16:20:00) (10/23/2012 10:17:00) POC A Na [135-145 mEq/L] 133 mEq/L 129 mEq/L *LOW* *LOW* (10/23/2012 16:20:00) (10/23/2012 10:17:00) POC A Mode NC-3LPM *NA* (10/24/2012 12:07:00) POC V Source HANNA *NA* (10/23/2012:37:00) POC V Temp 37.0 DegC *NA* (10/23/2012:37:00) POC V pH [7.28-7.42] 7.33 (10/23/2012:37:00) POC V PCO2 [38-52 mmHg] 41 mmHg (10/23/2012:37:00) POC V PO2 [20-49 mmHg] 32 mmHg (10/23/2012:37:00) POC V HCO3 [22-26 mmol/L] 22 mmol/L (10/23/2012:37:00) POC V BE [-2-2 mmol/L] -4 mmol/L *LOW* (10/23/2012:37:00) POC V O2 Sat [40.0-70.0 %] 56.0 % (10/23/2012 20:37:00) 7Result Comment: The eGFR is calculated using [...] eGFR should be multiplied by the estimated BMI.9Result Comment: The eGFR is calculated using the [...] eGFR should be multiplied by the estimated BMI.10Interpretive Data: Adult reference range values reflect the clinical guidelines of the [place] [employer].11Interpretive Data: Adult reference range values reflect the clinical guidelines of the [place] [employer].12Interpretive Data: Adult reference range values reflect the clinical guidelines of the [place] [employer].13Interpretive Data: Reference range is based on recommendations in the Endocrine Society Clinical Practice Guideline (J Clin Endocrinol Metab 2011;96:3672-1350)14Result Comment: Specimen Moderately Hemolyzed.15Result Comment: Critical Result(s) called to daisy otoole at 10/25/2012 01:18:09 SIZING MACHINE OPERATOR by tac. Read back OK.16Result Comment: Critical Result(s) called to Maribel Bustos at 10/24/2012 13:23:46 SIZING MACHINE OPERATOR by lwb . Readback OK.17Result Comment: Critical Result(s) called to Lyn King at 10/24/2012 09:52:38 SIZING MACHINE OPERATOR by lwb . Read back OK.18Result Comment: Critical Result(s) called to Jelani Rasmussen at 10/25/2012 00: 47:48 SIZING MACHINE OPERATOR by RM. Read back OK.19Result Comment: Critical Result(s) called to mariana bustos at _ 10/24/2012 13:37:22 CSTby_lss. Readback OK.20Result Comment : Critical Result(s) called to romero beltre at _10/24/2012 09:50:18 SIZING MACHINE OPERATOR by_lss. Read back OK.21Interpretive Data: HbA1C% eAG(mg/dL) Interpretation 6.0 126 Very good control 6.5 140 Very good control 7.0 154 Good Control 7.5 169 Good Control 8.0 183 Marginal Control, take action to lower 8.5 197 Marginal Control, take action to lower 9.0 212 Poor Control, take action to lower 9.5 226 Poor Control, take action to lower 10.0 240 Poor Control, take action to lowerHEMATOLOGY Most recent to oldest 1 2 3 [Reference Range]: WBC [3.7-10.4 K/CMM] 9.4 K/CMM 11.0 K/CMM 9.7 K/CMM (10/31/2012 04:00:00) *HI* (10/29/2012 00:56:00) (10/30/2012 00:20:00) RBC [4.20-5.40 M/CMM] 4.06 M/CMM 4.47 M/CMM 4.54 M/CMM *LOW* (10/30/2012 00:20:00) (10/29/2012 00:56:00) (10/31/2012 04:00:00) Hgb [12.0-16.0 g/dL] 9.7 g/dL 10.6 g/dL 10.8 g/dL *LOW* *LOW* *LOW* (10/31/2012 04:00:00) (10/30/2012 00:20:00) (10/29/2012 00:56:00) Hct [36.0-48.0 %] 30.2 % 33.1 % 33.6 % *LOW* *LOW* *LOW* (10/31/2012 04:00:00) (10/30/2012 00:20:00) (10/29/2012 00:56:00) MCV [81.0-99.0 fL] 74.3 fL 74.1 fL 74.0 fL *LOW* *LOW* *LOW* (10/31/2012 04:00:00) (10/30/2012 00:20:00) (10/29/2012 00:56:00) MCH [27.0-31.0 pg] 23.9 pg 23.7 pg 23.8 pg *LOW* *LOW* *LOW* (10/31/2012 04:00:00) (10/30/2012 00:20:00) (10/29/2012 00:56:00) MCHC [32.0-36.0 g/dL] 32.2 g/dL 31.9 g/dL 32.2 g/dL (10/31/2012 04:00:00) *LOW* (10/29/2012 00:56:00) (10/30/2012 00:20:00) RDW [11.5-14.5 %] 17.5 % 16.9 % 17.1 % *HI* *HI* *HI* (10/31/2012 04:00:00) (10/30/2012 00:20:00) (10/29/2012 00:56:00) Platelet [133-450 K/CMM] 199 K/CMM 245 K/CMM 233 K/CMM (10/31/2012 04:00:00) (10/30/2012 00:20:00) (10/29/2012 00:56:00) MPV [7.4-10.4 fL] 9.4 fL 9.4 fL 9.9 fL (10/31/2012 04:00:00) (10/30/2012 00:20:00) (10/29/2012 00:56:00) Segs [45.0-75.0 %] 55.2 % 68.3 % 61.5 % (10/31/2012 04:00:00) (10/30/2012 00:20:00) (10/29/2012 00:56:00) Lymphocytes [20.0-40.0 %] 28.9 % 18.9 % 26.8 % (10/31/2012 04:00:00) *LOW* (10/29/2012 00:56:00) (10/30/2012 00:20:00) Monocytes [2.0-12.0 %] 11.8 % 10.3 % 7.6 % (10/31/2012 04:00:00) (10/30/2012 00:20:00) (10/29/2012 00:56:00) Eosinophils [0.0-4.0 %] 3.5 % 2.1 % 3.4 % (10/31/2012 04:00:00) (10/30/2012 00:20:00) (10/29/2012 00:56:00) Basophils [0.0-1.0 %] 0.6 % 0.4 % 0.7 % (10/31/2012 04:00:00) (10/30/2012 00:20:00) (10/29/2012 00:56:00) Segs-Bands # [1.5-8.1 5.2 K/CMM 7.5 K/CMM 6.0 K/CMM K/CMM] (10/31/2012 04:00:00) (10/30/2012 00:20:00) (10/29/2012 00:56:00) Lymphocytes # [1.0-5.5 2.7 K/CMM 2.1 K/CMM 2.6 K/CMM K/CMM] (10/31/2012 04:00:00) (10/30/2012 00:20:00) (10/29/2012 00:56:00) Monocytes # [0.0-0.8 1.1 K/CMM 1.1 K/CMM 0.7 K/CMM K/CMM] *HI* *HI* (10/29/2012 00:56:00) (10/31/2012 04:00:00) (10/30/2012 00:20:00) Eosinophils # [0.0-0.5 0.3 K/CMM 0.2 K/CMM 0.3 K/CMM K/CMM] (10/31/2012 04:00:00) (10/30/2012 00:20:00) (10/29/2012 00:56:00) Basophils # [0.0-0.2 0.1 K/CMM 0.1 K/CMM 0.2 K/CMM K/CMM] (10/31/2012 04:00:00) (10/29/2012 00:56:00) (10/25/2012 00:15:00) Microcyte [None Seen] 1+ 1+ 1+ *ABN* *ABN* *ABN* (10/31/2012 04:00:00) (10/30/2012 00:20:00) (10/29/2012 00:56:00) Plt Morph Normal (10/25/2012 00:15:00) PT [12.0-14.7 seconds] 13.7 seconds 13.4 seconds 13.5 seconds (10/30/2012 00:20:00) (10/29/2012 00:56:00) (10/28/2012 01:10:00) INR [0.85-1.17] 1.03 22 1.00 23 1.01 24 (10/30/2012 00:20:00) (10/29/2012 00:56:00) (10/28/2012 01:10:00) PTT [22.9-35.8 seconds] 28.1 seconds 25 23.7 seconds 26 23.9 seconds 27 (10/30/2012 00:20:00) (10/29/2012 00:56:00) (10/28/2012 01:10:00) 22Interpretive Data: RECOMMENDED RANGES FOR PROTIME INR: 2.0-3.0 for most medical and surgical thromboembolic states. 2.5-3.5 for artificial heart valves and recurrent embolism. INR SHOULD BE USED ONLY FOR PATIENTS ON STABLE ANTICOAGULANT THERAPY.23Interpretive Data: RECOMMENDED RANGES FOR PROTIME INR: 2.0-3.0 for most medical and surgical thromboembolic states. 2.5-3.5 for artificial heart valves and recurrent embolism. INR SHOULD BE USED ONLY FOR PATIENTS ON STABLE ANTICOAGULANT THERAPY.24Interpretive Data: RECOMMENDED RANGES FOR PROTIME INR: 2.0-3.0 for most medical and surgical thromboembolic states. 2.5-3.5 for artificial heart valves and recurrent embolism. INR SHOULD BE USED ONLY FOR PATIENTS ON STABLE ANTICOAGULANT THERAPY.25Interpretive Data: Heparin Therapeutic Range: 57 - 92 [id number] Data: Heparin Therapeutic Range: 57 - 92 [id number] Data: Heparin Therapeutic Range: 57 - 92 Seconds Microbiology Reports PROCEDURE:Culture: Urine STATUS: Auth (Verified) BODY SITE: COLLECTED DATE/TIME: 10/23/2012 20:33:00 SOURCE: Urine,Straight Cath FREE TEXT SOURCE: FINAL REPORTS Final [place]72,000 - 100,000 CFU/mL Gram Negative Rods , Lactose Fermenters , 2 Colby Types 50,000 - 100,000 CFU/mL Enterococcus Species <10,000 CFU/mL Staphylococcus aureus >100,000 CFU/mL Skin Es Multiple Species Isolated-Suggestive Of Improper Collection Or Contamination. Please Recollect.PRELIMINARY REPORTS Preliminary ReportHolding For Better Growth PROCEDURE:Culture: Blood STATUS: Auth (Verified) BODY SITE: Arm R COLLECTED DATE/TIME: 10/23/2012 16:25:00 SOURCE: Blood FREE TEXT SOURCE: set-Rt arm arterial stick FINAL REPORTS Final ReportNo Growth At 5 DaysPRELIMINARY REPORTS* Preliminary ReportNo Growth At 2 Days Preliminary ReportNo Growth At 5 Days Preliminary ReportNo Growth At 2 Days Preliminary ReportNo Growth At 4 Days Preliminary ReportNo Growth At 1 Day Preliminary ReportNo Growth At 3 Days PROCEDURE:Culture: Resistant Acinetobacter Screen STATUS: Auth (Verified) BODY SITE: COLLECTED DATE/TIME: 10/23/2012 12:00:00 SOURCE: Nasal Swab FREE TEXT SOURCE: FINAL REPORTS Final ReportNo Acinetobacter IsolatedPRELIMINARY REPORTS Preliminary ReportCulture In Progress
--- OUTSIDE RECORDS SUMMARY | 2018-02-13 16:11 | XMS REPORT | CCD ---
:1965 Author Organization [facility] Care Team Providers Name Role Phone Marcela Michaelsbhumika Westbrook Consulting Provider Alberto Mata Consulting Provider Allergies, Adverse Reactions, Alerts Substance Reaction Status NKDA Active Problem List Condition Effective Dates Status Acid reflux Resolved Anemia Resolved Anxiety Resolved Arthritis Resolved Depression Resolved Diabetes mellitus type 1 Resolved Edema of lower extremity Resolved Fibromyalgia Resolved Hyperlipidemia Resolved Hypertension Resolved [place] - Myocardial infarction 10/22/2012 Resolved MRSA1, 2, 3, 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 Medications Medication Instructions Start Date End Date Status Dextrose 5% with 0.45% 1,000 mL, Rate: 150 11/30/2012 11/30/2012 Discontinued NaCl IV 1,000 mL ml/hr, Infuse over: 6.7 hr, Route: IV, kg, Total Volume: 1,000, Start date: 11/30/12 9:12:00, Duration: 30 day, Stop date: 12/30/12 9:11:00 insulin aspart 3 unit, 0.03 mL, Route: 12/01/2012 12/04/2012 Discontinued SUB-Q, Drug form: SOLN, Bedtime, Dosing Weight 100, kg, PRN Blood Glucose Results, Start date: 12/01/12 13:23:00, Duration: 30 day, Stop date: 12/31/12 13:22:00 insulin aspart 4 unit, 0.04 mL, Route: 12/01/2012 12/04/2012 Discontinued SUB-Q, Drug form: SOLN, Bedtime, Dosing Weight 100, kg, PRN Blood Glucose Results, Start date: 12/01/12 13:23:00, Duration: 30 day, Stop date: 12/31/12 13:22:00 insulin aspart 2 unit, 0.02 mL, Route: 12/01/2012 12/04/2012 Discontinued SUB-Q, Drug form: SOLN, Bedtime, Dosing Weight 100, kg, PRN Blood Glucose Results, Start date: 12/01/12 13:23:00, Duration: 30 day, Stop date: 12/31/12 13:22:00 insulin aspart 1 unit, 0.01 mL, Route: 12/01/2012 12/04/2012 Discontinued SUB-Q, Drug form: SOLN, Bedtime, Dosing Weight 100, kg, PRN Blood Glucose Results, Start date: 12/01/12 13:23:00, Duration: 30 day, Stop date: 12/31/12 13:22:00 Protonix 40 mg oral 40 mg, 1 tab, PO, Daily, 12/07/2012 Ordered enteric coated tablet 30 tab, Substitution Allowed, ECTAB pravastatin 80 mg oral 80 mg, 1 tab, PO, Daily, 12/07/2012 Ordered tablet 30 tab, Substitution Allowed, TAB Phenergan 12.5 mg, 0.5 mL, Route: 11/28/2012 11/28/2012 Completed IVPB, Drug form: INJ, ONCE, Dosing Weight 101.364, kg, Priority: STAT, Start date: 11/28/12 19:29:00, Stop date: 11/28/12 19:29:00 Zofran 4 mg, 2 mL, Route: IVP, 11/28/2012 11/28/2012 Completed Drug form: INJ, ONCE, Dosing Weight 101.364, kg, Priority: STAT, Start date: 11/28/12 19:29:00, Stop date: 11/28/12 19:29:00 potassium chloride 40 mEq, Route: IV, ONCE, 12/04/2012 12/04/2012 Deleted Dosing Weight 100, kg, Start date: 12/04/12 8:20:00, Stop date: 12/04/12 8:20:00 Protonix 40 mg, 1 tab, Route: PO, 12/04/2012 12/06/2012 Discontinued Drug form: ECTAB, Daily, Dosing Weight 100, kg, Start date: 12/04/12 9:00:00, Duration: 30 day, Stop date: 01/02/13 9:00:00 ceftriaxone 1 gm, Route: IVPB, Drug 12/02/2012 12/02/2012 Discontinued form: PDR/INJ, [id number], Dosing Weight 100, kg, Start date: 12/02/12 5:00:00, Duration: 30 day, Stop date: 12/31/12 5:00:00 Zofran 4 mg, 2 mL, Route: IV, 11/29/2012 11/30/2012 Discontinued Drug form: INJ, Q4H, Dosing Weight 100, kg, PRN as needed for nausea/vomiting, Start date: 11/29/12 9:07:00, Duration: 30 day, Stop date: 12/29/12 9:06:00 NS 1,000 mL 1,000 mL, Rate: 125 12/02/2012 12/05/2012 Discontinued ml/hr, Infuse over: 8 hr, Route: IV, kg, Total Volume: 1,000, Start date: 12/02/12 16:54:00, Duration: 30 day, Stop date: 01/01/13 16:53:00 Zofran 4 mg, 2 mL, Route: IVP, 11/28/2012 11/28/2012 Completed Drug form: INJ, ONCE, Dosing Weight 101.364, kg, Priority: STAT, Start date: 11/28/12 23:49:00, Stop date: 11/28/12 23:49:00 Sodium Chloride 0.9% 1,000 mL, Rate: 1,000 11/28/2012 11/28/2012 Completed (Bolus) IV 1,000 mL ml/hr, Infuse over: 1 hr, Route: IV, kg, Total Volume: 1,000, Priority: STAT, Start date: 11/28/12 19:29:00, Duration: 1 doses or times, Stop date: 11/28/12 20:28:00 Saline Flush 0.9% 5 ml, Route: IVP, Drug 11/28/2012 11/29/2012 Discontinued Form: INJ, Dosing Weight 101.364, kg, PRN, PRN Line Flush, Start date: 11/28/12 19:29:00, Duration: 30 day, Stop date: 12/28/12 19:28:00 insulin detemir 100 14 unit, 0.14 mL, SUB-Q, 12/07/2012 Ordered units/mL subcutaneous Bedtime, 100 mL, solution Substitution Allowed, INJ insulin detemir 100 16 unit, 0.16 mL, SUB-Q, 12/07/2012 Ordered units/mL subcutaneous Daily, 100 mL, solution Substitution Allowed, INJ magnesium sulfate 2 gm in 6 gm, 150 mL, Route: 11/29/2012 12/02/2012 Discontinued Water 50 ml IVPB, Drug form: INJ, PRN, Dosing Weight 100, kg, PRN Abnormal Lab Result, Start date: 11/29/12 14:41:00, Stop date: 12/29/12 14:40:00 potassium phosphate 20 20 mmol, Route: IVPB, 11/29/2012 11/29/2012 Discontinued mmol/250 mL-NaCl 0.9% PRN, Dosing Weight 100, intravenous solution kg, PRN Abnormal Lab Result, Priority: Routine, Start date: 11/29/12 14:41:00, Duration: 30 day, Stop date: 12/29/12 14:40:00 Dextrose 50% Syringe 25 gm, 50 ml, Route: 11/29/2012 11/30/2012 Discontinued IVP, Drug Form: INJ, Dosing Weight 100, kg, PRN, PRN Blood Glucose Results, Start date: 11/29/12 14:41:00, Duration: 30 day, Stop date: 12/29/12 14:40:00 magnesium sulfate 2 gm in 8 gm, 200 mL, Route: 11/29/2012 12/02/2012 Discontinued Water 50 ml IVPB, Drug form: INJ, PRN, Dosing Weight 100, kg, PRN Abnormal Lab Result, Start date: 11/29/12 14:41:00, Duration: 30 day, Stop date: 12/29/12 14:40:00 magnesium sulfate 2 gm in 4 gm, 100 mL, Route: 11/29/2012 12/02/2012 Discontinued Water 50 ml IVPB, Drug form: INJ, PRN, Dosing Weight 100, kg, PRN Abnormal Lab Result, Start date: 11/29/12 14:41:00, Stop date: 12/29/12 14:40:00 potassium chloride 20 40 mEq, 200 mL, Route: 11/29/2012 12/02/2012 Discontinued mEq/100 mL intravenous IVPB, Drug form: INJ, solution PRN, Dosing Weight 100, kg, PRN Abnormal Lab Result, Start date: 11/29/12 14:41:00, Stop date: 12/29/12 14:40:00 potassium chloride 20 80 mEq, 400 mL, Route: 11/29/2012 12/02/2012 Discontinued mEq/100 mL intravenous IVPB, Drug form: INJ, solution PRN, Dosing Weight 100, kg, PRN Abnormal Lab Result, Start date: 11/29/12 14:41:00, Duration: 30 day, Stop date: 12/29/12 14:40:00 potassium chloride 20 60 mEq, 300 mL, Route: 11/29/2012 12/02/2012 Discontinued mEq/100 mL intravenous IVPB, Drug form: INJ, solution PRN, Dosing Weight 100, kg, PRN Abnormal Lab Result, Start date: 11/29/12 14:41:00, Duration: 30 day, Stop date: 12/29/12 14:40:00 Insulin (regular) Titrate 99 mL, Rate: 11/29/2012 11/30/2012 Discontinued IV additive 100 unit + 0.1units/kg/hour Sodium Chloride 0.9% Titrate, Dosing Weight (titrate) 99 mL 100, kg, Route: IV, Total Volume: 100, Duration: 30 day, Stop date: 12/29/12 14:42:00, Replace Every: 24 hr D5W 1/2NS 1,000 mL 1,000 mL, Rate: 200 11/29/2012 11/30/2012 Discontinued ml/hr, Infuse over: 5 hr, Route: IV, kg, Total Volume: 1,000, Start date: 11/29/12 14:41:00, Stop date: 12/29/12 14:40:00 Sodium Chloride 0.9% IV 1,000 mL, Rate: 200 11/29/2012 11/30/2012 Discontinued 1,000 mL ml/hr, Infuse over: 5 hr, Route: IV, kg, Total Volume: 1,000, Start date: 11/29/12 14:41:00, Stop date: 12/29/12 14:45:00 heparin 5,000 unit, 1 mL, Route: 11/30/2012 12/07/2012 Discontinued SUB-Q, Drug form: INJ, Q8H, Dosing Weight 100, kg, Start date: 11/30/12 8:30:00, Duration: 30 day, Stop date: 12/30/12 8:00:00 Zofran 4 mg, 2 mL, Route: IV, 11/30/2012 12/02/2012 Discontinued Drug form: INJ, Q8H, Dosing Weight 100, kg, PRN Nausea, Start date: 11/30/12 11:58:00, Duration: 30 day, Stop date: 12/30/12 11:57:00 Reglan 10 mg, 2 mL, Route: IVP, 11/29/2012 12/07/2012 Discontinued Drug form: INJ, Q6H-02, Dosing Weight 100, kg, Start date: 11/29/12 8:00:00, Duration: 30 day, Stop date: 12/29/12 2:00:00 potassium phosphate-sodium 2 pkt, Route: PO, Drug 11/30/2012 11/30/2012 Completed phosphate 250 mg-278 Form: PDR/REC, ONCE, mg-164 mg oral powder Start date: 11/30/12 10:00:00, Stop date: 11/30/12 10:00:00 Pravachol 80 mg, 4 tab, Route: PO, 12/05/2012 12/07/2012 Discontinued Drug form: TAB, Bedtime, Start date: 12/05/12 21:00:00, Duration: 30 day, Stop date: 01/03/13 21:00:00 potassium chloride 20 mEq, 100 mL, Route: 12/05/2012 12/05/2012 Completed IVPB, Q2H, Start date: 12/05/12 8:00:00, Stop date: 12/05/12 11:00:00 Reglan 10 mg, 2 mL, Route: IVP, 11/29/2012 11/29/2012 Completed Drug form: INJ, ONCE, Dosing Weight 101.364, kg, Priority: STAT, Start date: 11/29/12 2:31:00, Stop date: 11/29/12 2:31:00 Zofran 4 mg, 2 mL, Route: IVP, 11/30/2012 11/30/2012 Completed Drug form: INJ, ONCE, Dosing Weight 100, kg, Priority: NOW, Start date: 11/30/12 11:57:00, Stop date: 11/30/12 11:57:00 NS + KCL 20mEq/L 1000ml 1,000 mL, Rate: 125 12/05/2012 12/07/2012 Discontinued (Premix) 1,000 mL ml/hr, Infuse over: 8 hr, Route: IV, kg, Total Volume: 1,000, Start date: 12/05/12 7:21:00, Duration: 30 day, Stop date: 01/04/13 7:20:00 1/2 NS 1,000 mL 1,000 mL, Rate: 200 11/30/2012 11/30/2012 Discontinued ml/hr, Infuse over: 5 hr, Route: IV, kg, Total Volume: 1,000, Start date: 11/30/12 5:30:00, Duration: 30 day, Stop date: 12/30/12 5:29:00 insulin aspart 10 unit, 0.1 mL, Route: 11/30/2012 11/30/2012 Discontinued SUB-Q, Drug form: SOLN, TID-Before Meals, Dosing Weight 100, kg, PRN Blood Glucose Results, Start date: 11/30/12 7:57:00, Duration: 30 day, Stop date: 12/30/12 7:56:00 insulin aspart 8 unit, 0.08 mL, Route: 11/30/2012 11/30/2012 Discontinued SUB-Q, Drug form: SOLN, TID-Before Meals, Dosing Weight 100, kg, PRN Blood Glucose Results, Start date: 11/30/12 7:57:00, Duration: 30 day, Stop date: 12/30/12 7:56:00 insulin aspart 6 unit, 0.06 mL, Route: 11/30/2012 11/30/2012 Discontinued SUB-Q, Drug form: SOLN, TID-Before Meals, Dosing Weight 100, kg, PRN Blood Glucose Results, Start date: 11/30/12 7:57:00, Duration: 30 day, Stop date: 12/30/12 7:56:00 insulin aspart 4 unit, 0.04 mL, Route: 11/30/2012 11/30/2012 Discontinued SUB-Q, Drug form: SOLN, TID-Before Meals, Dosing Weight 100, kg, PRN Blood Glucose Results, Start date: 11/30/12 7:57:00, Duration: 30 day, Stop date: 12/30/12 7:56:00 insulin aspart 2 unit, 0.02 mL, Route: 11/30/2012 11/30/2012 Discontinued SUB-Q, Drug form: SOLN, TID-Before Meals, Dosing Weight 100, kg, PRN Blood Glucose Results, Start date: 11/30/12 7:57:00, Duration: 30 day, Stop date: 12/30/12 7:56:00 insulin aspart 3 unit, 0.03 mL, Route: 11/29/2012 11/29/2012 Discontinued SUB-Q, Drug form: SOLN, TID-Before Meals, Dosing Weight 101.364, kg, PRN Blood Glucose Results, Start date: 11/29/12 3:26:00, Duration: 30 day, Stop date: 12/29/12 3:25:00 insulin aspart 2 unit, 0.02 mL, Route: 11/29/2012 11/29/2012 Discontinued SUB-Q, Drug form: SOLN, TID-Before Meals, Dosing Weight 101.364, kg, PRN Blood Glucose Results, Start date: 11/29/12 3:26:00, Duration: 30 day, Stop date: 12/29/12 3:25:00 insulin aspart 1 unit, 0.01 mL, Route: 11/29/2012 11/29/2012 Discontinued SUB-Q, Drug form: SOLN, TID-Before Meals, Dosing Weight 101.364, kg, PRN Blood Glucose Results, Start date: 11/29/12 3:26:00, Duration: 30 day, Stop date: 12/29/12 3:25:00 insulin aspart 5 unit, 0.05 mL, Route: 11/29/2012 11/29/2012 Discontinued SUB-Q, Drug form: SOLN, TID-Before Meals, Dosing Weight 101.364, kg, PRN Blood Glucose Results, Start date: 11/29/12 3:26:00, Duration: 30 day, Stop date: 12/29/12 3:25:00 insulin aspart 4 unit, 0.04 mL, Route: 11/29/2012 11/29/2012 Discontinued SUB-Q, Drug form: SOLN, TID-Before Meals, Dosing Weight 101.364, kg, PRN Blood Glucose Results, Start date: 11/29/12 3:26:00, Duration: 30 day, Stop date: 12/29/12 3:25:00 Dextrose 50% Syringe 12.5 gm, 25 mL, Route: 11/29/2012 11/29/2012 Discontinued IVP, Drug Form: INJ, Dosing Weight 101.364, kg, PRN, PRN Blood Glucose Results, Start date: 11/29/12 3:26:00, Duration: 30 day, Stop date: 12/29/12 3:25:00 glucagon 1 mg, Route: IM, Drug 11/30/2012 11/30/2012 Discontinued form: PDR/INJ, PRN, Dosing Weight 100, kg, PRN Blood Glucose Results, Start date: 11/30/12 7:57:00, Duration: 30 day, Stop date: 12/30/12 7:56:00 Dextrose 50% Syringe 25 gm, 50 mL, Route: 11/30/2012 11/30/2012 Discontinued IVP, Drug Form: INJ, Dosing Weight 100, kg, PRN, PRN Blood Glucose Results, Start date: 11/30/12 7:57:00, Duration: 30 day, Stop date: 12/30/12 7:56:00 Dextrose 50% Syringe 12.5 gm, 25 mL, Route: 11/30/2012 11/30/2012 Discontinued IVP, Drug Form: INJ, Dosing Weight 100, kg, PRN, PRN Blood Glucose Results, Start date: 11/30/12 7:57:00, Duration: 30 day, Stop date: 12/30/12 7:56:00 insulin detemir 16 unit, 0.16 mL, Route: 11/30/2012 11/30/2012 Canceled SUB-Q, Drug form: INJ, Q12H, Dosing Weight 100, kg, Start date: 11/30/12 9:00:00, Duration: 30 day, Stop date: 12/29/12 21:00:00 glucagon 1 mg, Route: IM, Drug 11/29/2012 11/29/2012 Discontinued form: PDR/INJ, PRN, Dosing Weight 101.364, kg, PRN Blood Glucose Results, Start date: 11/29/12 3:26:00, Duration: 30 day, Stop date: 12/29/12 3:25:00 Dextrose 50% Syringe 25 gm, 50 mL, Route: 11/29/2012 11/29/2012 Discontinued IVP, Drug Form: INJ, Dosing Weight 101.364, kg, PRN, PRN Blood Glucose Results, Start date: 11/29/12 3:26:00, Duration: 30 day, Stop date: 12/29/12 3:25:00 insulin aspart 4 unit, Route: SUB-Q, 11/29/2012 11/29/2012 Discontinued Bedtime, Dosing Weight 101.364, kg, PRN Blood Glucose Results, Start date: 11/29/12 3:26:00, Duration: 30 day, Stop date: 12/29/12 3:25:00 insulin aspart 3 unit, Route: SUB-Q, 11/29/2012 11/29/2012 Discontinued Bedtime, Dosing Weight 101.364, kg, PRN Blood Glucose Results, Start date: 11/29/12 3:26:00, Duration: 30 day, Stop date: 12/29/12 3:25:00 insulin aspart 2 unit, Route: SUB-Q, 11/29/2012 11/29/2012 Discontinued Bedtime, Dosing Weight 101.364, kg, PRN Blood Glucose Results, Start date: 11/29/12 3:26:00, Duration: 30 day, Stop date: 12/29/12 3:25:00 insulin aspart 1 unit, Route: SUB-Q, 11/29/2012 11/29/2012 Discontinued Bedtime, Dosing Weight 101.364, kg, PRN Blood Glucose Results, Start date: 11/29/12 3:26:00, Duration: 30 day, Stop date: 12/29/12 3:25:00 enoxaparin 40 mg, 0.4 mL, Route: 11/29/2012 11/29/2012 Discontinued SUB-Q, Drug form: INJ, [id number], Dosing Weight 101.364, kg, Start date: 11/29/12 4:00:00, Duration: 30 day, Stop date: 12/28/12 4:00:00 potassium chloride 40 mEq, Route: IVPB, 12/05/2012 12/05/2012 Deleted ONCE, Dosing Weight 100, kg, Start date: 12/05/12 7:21:00, Stop date: 12/05/12 7:21:00 magnesium sulfate 2 gm, 50 mL, Route: IVPB, Drug form: INJ, Q2H, Dosing Weight 100, kg, Start date: 12/01/12 6:00:00, Duration: 2 doses or times, Stop date: 12/01/12 8:00:00, For Mg=1.5 - 1.7 mg/dL 12/01/2012 12/01/2012 Completed For Mg=1.5 - 1.7 mg/dL erythromycin + Sodium 250 mg, Route: IVPB, 12/05/2012 12/07/2012 Discontinued Chloride 0.9% IV 100 mL Q8H, Dosing Weight 100, kg, Start date: 12/05/12 16:00:00, Duration: 30 day, Stop date: 01/04/13 8:00:00 NS (Bolus) IV 1,000 mL 1,000 mL, Rate: 1,000 ml/hr, Infuse over: 1 hr, Route: IV, kg, Total Volume: 1,000, Priority: STAT, Start date: 12/02/12 12:10:00, Duration: 1 doses or times, Stop date: 12/02/12 13:09:00, Bolus Dose 201212/02/2012 Completed Bolus Dose acetaminophen 650 mg, 20.3 mL, Route: 11/29/2012 11/29/2012 Discontinued PO, Drug form: LIQ, Q4H, Dosing Weight 101.364, kg, PRN Pain 1-3/Temp > 100.4 F, Start date: 11/29/12 3:25:00, Duration: 30 day, Stop date: 12/29/12 3:24:00 docusate 100 mg, 1 cap, Route: 11/29/2012 11/29/2012 Discontinued PO, Drug form: CAP, BID, Dosing Weight 101.364, kg, PRN Constipation, Start date: 11/29/12 3:25:00, Duration: 30 day, Stop date: 12/29/12 3:24:00 Dextrose 50% Syringe 25 mL, Route: IVP, 12/02/2012 12/02/2012 Deleted Dosing Weight 100, kg, PRN, PRN Blood Glucose Results, Start date: 12/02/12 4:51:00, Duration: 30 day, Stop date: 01/01/13 4:50:00 Dextrose 50% Syringe 50 mL, Route: IVP, 12/02/2012 12/02/2012 Deleted Dosing Weight 100, kg, PRN, PRN Blood Glucose Results, Start date: 12/02/12 4:51:00, Duration: 30 day, Stop date: 01/01/13 4:50:00 Insulin regular 100 unit + 100 mL, Rate: Start Insulin Drip Per ICU Protocol, Dosing Weight 100, kg, Route: IVPB, Total Volume: 100, Duration: 30 day, Stop date: 01/01/13 4:51:00, Replace Every: 24 hr, Initial Insulin Drip Rate ( 12/0212/02/2012 Deleted Sodium Chloride 0.9% units/hour)=(Fasting Blood Glucose-60)X0.03 "mult... (titrate) 100 mL Initial Insulin Drip Rate (units/hour)=(Fasting Blood Glucose -60)X0.03 "multiplier". insulin detemir 14 unit, 0.14 mL, Route: 12/05/2012 12/07/2012 Discontinued SUB-Q, Drug form: INJ, Bedtime, Dosing Weight 100, kg, Start date: 12/05/12 21:00:00, Stop date: 01/03/13 21:00:00 insulin detemir 16 unit, 0.16 mL, Route: 12/06/2012 12/07/2012 Discontinued SUB-Q, Drug form: INJ, Daily, Dosing Weight 100, kg, Start date: 12/06/12 9:00:00, Stop date: 01/04/13 9:00:00 Insulin regular 100 unit + 100 mL, Rate: Titrate 12/02/2012 12/02/2012 Discontinued Sodium Chloride 0.9% per ICU dosing (titrate) 100 mL guidelines, Dosing Weight 100, kg, Route: IV, Total Volume: 101 mL, Duration: 30 day, Stop date: 01/01/13 4:50:00, Replace Every: 24 hr potassium chloride 20 mEq, 100 mL, Route: IVPB, Drug form: INJ, Q2H, Dosing Weight 100, kg, Total dose=40 mEq, Start date: 12/01/12 6:00:00, Duration: 2 doses or times, Stop date: 12/01/12 8:00:00, For K=3.5 - 3.9 mEq/L 12/01/2012 12/01/2012 Completed For K=3.5 - 3.9 mEq/L Insulin regular 100 unit + 99 mL, Rate: Start 11/29/2012 11/29/2012 Discontinued Sodium Chloride 0.9% IV 99 Insulin Drip Per ICU mL protocol, Route: IV, kg, Total Volume: 100, Start date: 11/29/12 12:42:00, Stop date: 12/29/12 12:41:00 NIFEdipine 90 mg, 1 tab, Route: PO, 11/29/2012 12/07/2012 Discontinued Drug form: ERTAB, Daily, Dosing Weight 101.364, kg, Start date: 11/29/12 9:00:00, Duration: 30 day, Stop date: 12/28/12 9:00:00 clonazepam 0.5 mg, 1 tab, Route: 11/29/2012 11/29/2012 Discontinued PO, Drug form: TAB, TID, Dosing Weight 101.364, kg, Start date: 11/29/12 9:00:00, Duration: 30 day, Stop date: 12/28/12 17:00:00 lisinopril 20 mg, 1 tab, Route: PO, 11/29/2012 12/07/2012 Discontinued Drug form: TAB, Q12H, Dosing Weight 101.364, kg, Start date: 11/29/12 9:00:00, Duration: 30 day, Stop date: 12/28/12 21:00:00 ergocalciferol 50,000 IntlUnit, 1 cap, 12/07/2012 12/07/2012 Discontinued Route: PO, Drug form: CAP, qWeek, Dosing Weight 100, kg, Start date: 12/07/12 9:00:00, Duration: 30 day, Stop date: 01/04/13 9:00:00 magnesium oxide 400 mg, 1 tab, Route: 11/29/2012 12/07/2012 Discontinued PO, Drug form: TAB, Daily, Dosing Weight 101.364, kg, Start date: 11/29/12 9:00:00, Duration: 30 day, Stop date: 12/28/12 9:00:00 Reglan 10 mg oral tablet 10 mg, 1 tab, Route: PO, 11/29/2012 11/29/2012 Discontinued Drug form: TAB, TID-Before Meals, Dosing Weight 101.364, kg, Start date: 11/29/12 7:30:00, Duration: 30 day, Stop date: 12/28/12 16:30:00 calcium gluconate 1,000 mg, Route: IVPB, 12/02/2012 12/02/2012 Deleted Drug form: INJ, ONCE, Dosing Weight 100, kg, Start date: 12/02/12 5:00:00, Stop date: 12/02/12 5:00:00 tramadol 50 mg oral tablet 50 mg, 1 tab, Route: PO, 11/29/2012 12/07/2012 Discontinued Drug form: TAB, Q4H, Dosing Weight 101.364, kg, PRN as needed for pain, Start date: 11/29/12 3:46:00, Duration: 30 day, Stop date: 12/29/12 3:45:00 Zofran 8 mg, Route: IVP, Drug 11/29/2012 11/29/2012 Completed form: INJ, ONCE, Dosing Weight 101.364, kg, Priority: STAT, Start date: 11/29/12 1:52:00, Stop date: 11/29/12 1:52:00 hydrALAZINE 5 mg, 0.25 mL, Route: 11/29/2012 12/02/2012 Discontinued IV, Drug form: INJ, Q4H, Dosing Weight 100, kg, PRN Hypertension, Start date: 11/29/12 19:42:00, Duration: 30 day, Stop date: 12/29/12 19:41:00 insulin aspart 10 unit, 0.1 mL, Route: 11/30/2012 11/30/2012 Discontinued SUB-Q, Drug form: SOLN, TID-Before Meals, Dosing Weight 100, kg, PRN Blood Glucose Results, Start date: 11/30/12 13:26:00, Duration: 30 day, Stop date: 12/30/12 13:25:00 insulin aspart 8 unit, 0.08 mL, Route: 11/30/2012 11/30/2012 Discontinued SUB-Q, Drug form: SOLN, TID-Before Meals, Dosing Weight 100, kg, PRN Blood Glucose Results, Start date: 11/30/12 13:26:00, Duration: 30 day, Stop date: 12/30/12 13:25:00 insulin aspart 4 unit, 0.04 mL, Route: 11/30/2012 11/30/2012 Discontinued SUB-Q, Drug form: SOLN, TID-Before Meals, Dosing Weight 100, kg, PRN Blood Glucose Results, Start date: 11/30/12 13:26:00, Duration: 30 day, Stop date: 12/30/12 13:25:00 insulin aspart 6 unit, 0.06 mL, Route: 11/30/2012 11/30/2012 Discontinued SUB-Q, Drug form: SOLN, TID-Before Meals, Dosing Weight 100, kg, PRN Blood Glucose Results, Start date: 11/30/12 13:26:00, Duration: 30 day, Stop date: 12/30/12 13:25:00 insulin aspart 2 unit, 0.02 mL, Route: 11/30/2012 11/30/2012 Discontinued SUB-Q, Drug form: SOLN, TID-Before Meals, Dosing Weight 100, kg, PRN Blood Glucose Results, Start date: 11/30/12 13:26:00, Duration: 30 day, Stop date: 12/30/12 13:25:00 insulin detemir 16 unit, 0.16 mL, Route: 11/30/2012 12/02/2012 Discontinued SUB-Q, Drug form: INJ, Q12H, Dosing Weight 100, kg, Start date: 11/30/12 14:00:00, Duration: 30 day, Stop date: 12/30/12 9:00:00 heparin 5000 units/mL 5,000 unit, 1 mL, Route: 12/01/2012 11/29/2012 Canceled injectable solution SUB-Q, Drug form: INJ, Q8H, Dosing Weight 100, kg, Start date: 12/01/12 9:00:00, Duration: 30 day, Stop date: 12/31/12 8:00:00 morphine Sulfate 4 mg, 1 mL, Route: IVP, 12/05/2012 12/05/2012 Completed Drug form: INJ, ONCE, Dosing Weight 100, kg, Start date: 12/05/12 16:51:00, Stop date: 12/05/12 16:51:00 Effient 10 mg, 1 tab, Route: PO, 11/29/2012 12/07/2012 Discontinued Drug form: TAB, Daily, Dosing Weight 101.364, kg, Start date: 11/29/12 9:00:00, Duration: 30 day, Stop date: 12/28/12 9:00:00 Phenergan 25 mg, 1 supp, Route: 12/04/2012 12/07/2012 Discontinued MN, Drug form: SUPP, Q4H, Dosing Weight 100, kg, PRN Nausea & Vomiting, Start date: 12/04/12 7:58:00, Duration: 30 day, Stop date: 01/03/13 7:57:00 Levemir 8 unit, 0.08 mL, Route: 11/29/2012 11/29/2012 Canceled SUB-Q, Drug form: INJ, BID, Dosing Weight 101.364, kg, Start date: 11/29/12 9:00:00, Duration: 30 day, Stop date: 12/28/12 17:00:00 Phenergan 25 mg, 1 mL, Route: 12/04/2012 12/07/2012 Discontinued IVPB, Drug form: INJ, Q4H, Dosing Weight 100, kg, PRN Nausea & Vomiting, Start date: 12/04/12 7:58:00, Duration: 30 day, Stop date: 01/03/13 7:57:00 D5W 1/2NS 1,000 mL 1,000 mL, Rate: 75 11/29/2012 11/29/2012 Discontinued ml/hr, Infuse over: 13.3 hr, Route: IV, kg, Total Volume: 1,000, Start date: 11/29/12 3:21:00, Duration: 30 day, Stop date: 12/29/12 3:20:00 heparin 5000 units/mL 5,000 unit, 1 mL, Route: 11/30/2012 11/29/2012 Canceled injectable solution SUB-Q, Drug form: INJ, Q8H, Dosing Weight 100, kg, Start date: 11/30/12 0:00:00, Duration: 30 day, Stop date: 12/29/12 16:00:00 Dextrose 50% Syringe 12.5 gm, 25 mL, Route: 11/30/2012 12/01/2012 Discontinued IVP, Drug Form: INJ, Dosing Weight 100, kg, PRN, PRN Blood Glucose Results, Start date: 11/30/12 19:13:00, Duration: 30 day, Stop date: 12/30/12 19:12:00 Dextrose 50% Syringe 25 gm, 50 mL, Route: 11/30/2012 12/01/2012 Discontinued IVP, Drug Form: INJ, Dosing Weight 100, kg, PRN, PRN Blood Glucose Results, Start date: 11/30/12 19:13:00, Duration: 30 day, Stop date: 12/30/12 19:12:00 Phenergan 12.5 mg, 0.5 mL, Route: 11/29/2012 12/04/2012 Discontinued IVPB, Drug form: INJ, Q4H, Dosing Weight 100, kg, PRN Nausea & Vomiting, Start date: 11/29/12 17:56:00, Duration: 30 day, Stop date: 12/29/12 17:55:00 hydrALAZINE 10 mg, 0.5 mL, Route: 11/29/2012 12/02/2012 Discontinued IV, Drug form: INJ, Q4H, Dosing Weight 100, kg, PRN Hypertension, Start date: 11/29/12 22:56:00, Duration: 30 day, Stop date: 12/29/12 22:55:00 NS 1,000 mL 1,000 mL, Rate: 150 12/01/2012 12/01/2012 Completed ml/hr, Infuse over: 6.7 hr, Route: IV, kg, Total Volume: 1,000, Priority: NOW, Start date: 12/01/12 13:10:00, Duration: 1 doses or times, Stop date: 12/01/12 19:51:00 Phenergan 12.5 mg, 0.5 mL, Route: 11/29/2012 11/29/2012 Completed IVPB, Drug form: INJ, ONCE, Dosing Weight 101.364, kg, Priority: STAT, Start date: 11/29/12 0:56:00, Stop date: 11/29/12 0:56:00 insulin detemir 20 unit, 0.2 mL, Route: 12/02/2012 12/05/2012 Discontinued SUB-Q, Drug form: INJ, BID, Dosing Weight 100, kg, Start date: 12/02/12 9:00:00, Duration: 30 day, Stop date: 12/31/12 21:00:00 Toprol-XL 100 mg oral 100 mg, 1 tab, Route: 11/29/2012 12/07/2012 Discontinued tablet, extended release PO, Drug form: ERTAB, Daily, Start date: 11/29/12 9:00:00, Duration: 30 day, Stop date: 12/28/12 9:00:00 simvastatin 40 mg, 1 tab, Route: PO, 11/29/2012 12/05/2012 Discontinued Drug form: TAB, Bedtime, Dosing Weight 101.364, kg, Start date: 11/29/12 21:00:00, Duration: 30 day, Stop date: 12/28/12 21:00:00 Protonix 40 mg, Route: IVP, Drug 12/06/2012 12/07/2012 Discontinued form: INJ, Daily, Dosing Weight 100, kg, Priority: NOW, Start date: 12/06/12 16:52:00, Duration: 30 day, Stop date: 01/05/13 9:00:00 NS 0.45% IV 1000 mL 1,000 mL, Rate: 125 11/29/2012 11/29/2012 Discontinued ml/hr, Infuse over: 8 hr, Route: IV, Dosing Weight 101.364 kg, Total Volume: 1,000, Start date: 11/29/12 3:18:00, Duration: 30 day, Stop date: 12/29/12 3:17:00 Cymbalta 60 mg, 1 cap, Route: PO, 11/29/2012 12/07/2012 Discontinued Drug form: DRC, Bedtime, Dosing Weight 101.364, kg, Start date: 11/29/12 21:00:00, Stop date: 12/28/12 21:00:00 aspirin 81 mg, 1 tab, Route: PO, 11/29/2012 12/07/2012 Discontinued Drug form: ECTAB, Daily, Dosing Weight 101.364, kg, Start date: 11/29/12 9:00:00, Duration: 30 day, Stop date: 12/28/12 9:00:00 heparin 5,000 unit, 1 mL, Route: 11/29/2012 11/29/2012 Canceled SUB-Q, Drug form: INJ, Q8H, Dosing Weight 100, kg, Start date: 11/29/12 16:00:00, Duration: 30 day, Stop date: 12/29/12 8:00:00 Levemir 16 unit, 0.16 mL, Route: 11/29/2012 11/29/2012 Discontinued SUB-Q, Drug form: INJ, Q12H, Dosing Weight 100.568, kg, Priority: STAT, Start date: 11/29/12 7:43:00, Stop date: 12/28/12 21:00:00 Phenergan 12.5 mg, 0.25 mL, Route: 11/29/2012 11/29/2012 Discontinued IVPB, Drug form: INJ, Q4H, Dosing Weight 101.364, kg, Start date: 11/29/12 4:00:00, Duration: 30 day, Stop date: 12/29/12 0:00:00 Insulin regular 2 unit, 0.02 mL, Route: 12/01/2012 12/01/2012 Discontinued SUB-Q, Drug form: SOLN, Bedtime, Dosing Weight 100, kg, PRN Blood Glucose Results, Start date: 12/01/12 13:08:00, Duration: 30 day, Stop date: 12/31/12 13:07:00 Insulin regular 1 unit, 0.01 mL, Route: 12/01/2012 12/01/2012 Discontinued SUB-Q, Drug form: SOLN, Bedtime, Dosing Weight 100, kg, PRN Blood Glucose Results, Start date: 12/01/12 13:08:00, Duration: 30 day, Stop date: 12/31/12 13:07:00 insulin aspart 4 unit, 0.04 mL, Route: 12/01/2012 12/04/2012 Discontinued SUB-Q, Drug form: SOLN, TID-Before Meals, Dosing Weight 100, kg, PRN Blood Glucose Results, Start date: 12/01/12 13:08:00, Duration: 30 day, Stop date: 12/31/12 13:07:00 insulin aspart 2 unit, 0.02 mL, Route: 12/01/2012 12/04/2012 Discontinued SUB-Q, Drug form: SOLN, TID-Before Meals, Dosing Weight 100, kg, PRN Blood Glucose Results, Start date: 12/01/12 13:08:00, Duration: 30 day, Stop date: 12/31/12 13:07:00 insulin aspart 8 unit, 0.08 mL, Route: 12/01/2012 12/04/2012 Discontinued SUB-Q, Drug form: SOLN, TID-Before Meals, Dosing Weight 100, kg, PRN Blood Glucose Results, Start date: 12/01/12 13:08:00, Duration: 30 day, Stop date: 12/31/12 13:07:00 insulin aspart 6 unit, 0.06 mL, Route: 12/01/2012 12/04/2012 Discontinued SUB-Q, Drug form: SOLN, TID-Before Meals, Dosing Weight 100, kg, PRN Blood Glucose Results, Start date: 12/01/12 13:08:00, Duration: 30 day, Stop date: 12/31/12 13:07:00 insulin aspart 10 unit, 0.1 mL, Route: 12/01/2012 12/04/2012 Discontinued SUB-Q, Drug form: SOLN, TID-Before Meals, Dosing Weight 100, kg, PRN Blood Glucose Results, Start date: 12/01/12 13:08:00, Duration: 30 day, Stop date: 12/31/12 13:07:00 Insulin regular 3 unit, 0.03 mL, Route: 12/01/2012 12/01/2012 Discontinued SUB-Q, Drug form: SOLN, Bedtime, Dosing Weight 100, kg, PRN Blood Glucose Results, Start date: 12/01/12 13:08:00, Duration: 30 day, Stop date: 12/31/12 13:07:00 Insulin regular 4 unit, 0.04 mL, Route: 12/01/2012 12/01/2012 Discontinued SUB-Q, Drug form: SOLN, Bedtime, Dosing Weight 100, kg, PRN Blood Glucose Results, Start date: 12/01/12 13:08:00, Duration: 30 day, Stop date: 12/31/12 13:07:00 Dextrose 50% Syringe 25 gm, 50 mL, Route: 12/01/2012 12/04/2012 Discontinued IVP, Drug Form: INJ, Dosing Weight 100, kg, PRN, PRN Blood Glucose Results, Start date: 12/01/12 13:08:00, Duration: 30 day, Stop date: 12/31/12 13:07:00 glucagon 1 mg, Route: IM, Drug 12/01/2012 12/04/2012 Discontinued form: PDR/INJ, PRN, Dosing Weight 100, kg, PRN Blood Glucose Results, Start date: 12/01/12 13:08:00, Duration: 30 day, Stop date: 12/31/12 13:07:00 Dextrose 50% Syringe 12.5 gm, 25 mL, Route: 12/01/2012 12/04/2012 Discontinued IVP, Drug Form: INJ, Dosing Weight 100, kg, PRN, PRN Blood Glucose Results, Start date: 12/01/12 13:08:00, Duration: 30 day, Stop date: 12/31/12 13:07:00 clonazepam 0.5 mg, 1 tab, Route: 11/29/2012 11/29/2012 Discontinued PO, Drug form: TAB, TID, Dosing Weight 101.364, kg, PRN Anxiety, Start date: 11/29/12 16:34:00, Duration: 30 day, Stop date: 12/29/12 16:33:00 NS (Bolus) IV 1,000 mL 1,000 mL, Rate: 1,000 ml/hr, Infuse over: 1 hr, Route: IV, kg, Total Volume: 1,000, Priority: STAT, Start date: 12/02/12 13:12:00, Duration: 1 doses or times, Stop date: 12/02/12 14:11:00, Bolus Dose 201212/02/2012 Completed Bolus Dose magnesium sulfate 2 gm, Route: IVPB, Drug 11/30/2012 11/30/2012 Completed form: INJ, ONCE, Dosing Weight 100, kg, Total dose=2 gm, Start date: 11/30/12 8:05:00, Duration: 1 doses or times, Stop date: 11/30/12 8:05:00 insulin aspart 1 unit, 0.01 mL, Route: 11/30/2012 12/01/2012 Discontinued SUB-Q, Drug form: SOLN, Sliding Scale, Dosing Weight 100, kg, PRN Blood Glucose Results, Start date: 11/30/12 18:36:00, Duration: 30 day, Stop date: 12/30/12 18:35:00 insulin aspart 4 unit, 0.04 mL, Route: 11/30/2012 12/01/2012 Discontinued SUB-Q, Drug form: SOLN, Sliding Scale, Dosing Weight 100, kg, PRN Blood Glucose Results, Start date: 11/30/12 18:36:00, Duration: 30 day, Stop date: 12/30/12 18:35:00 insulin aspart 5 unit, 0.05 mL, Route: 11/30/2012 12/01/2012 Discontinued SUB-Q, Drug form: SOLN, Sliding Scale, Dosing Weight 100, kg, PRN Blood Glucose Results, Start date: 11/30/12 18:36:00, Duration: 30 day, Stop date: 12/30/12 18:35:00 insulin aspart 2 unit, 0.02 mL, Route: 11/30/2012 12/01/2012 Discontinued SUB-Q, Drug form: SOLN, Sliding Scale, Dosing Weight 100, kg, PRN Blood Glucose Results, Start date: 11/30/12 18:36:00, Duration: 30 day, Stop date: 12/30/12 18:35:00 insulin aspart 3 unit, 0.03 mL, Route: 11/30/2012 12/01/2012 Discontinued SUB-Q, Drug form: SOLN, Sliding Scale, Dosing Weight 100, kg, PRN Blood Glucose Results, Start date: 11/30/12 18:36:00, Duration: 30 day, Stop date: 12/30/12 18:35:00 Zofran 4 mg, Route: IVP, Drug 12/02/2012 12/02/2012 Completed form: INJ, ONCE, Dosing Weight 100, kg, Priority: STAT, Start date: 12/02/12 4:47:00, Stop date: 12/02/12 4:47:00 GI cocktail 30 ml, Route: PO, Drug 12/04/2012 12/05/2012 Completed Form: SUSP, Dosing Weight 100, kg, ONCE, Routine, Start date: 12/04/12 23:39:00, Stop date: 12/04/12 23:39:00 Diana 7.5/325 oral tablet 1 tab, Route: PO, Drug 12/06/2012 12/06/2012 Completed Form: TAB, Dosing Weight 100, kg, ONCE, Start date: 12/06/12 0:19:00, Stop date: 12/06/12 0:19:00 potassium phosphate 30 mmol, Route: IVPB, ONCE, Dosing Weight 100, kg, Start date: 11/30/12 8:05:00, Duration: 1 doses or times, Stop date: 11/30/12 8:05:00 , For PO4=1.5 - 1.9 mg/dL; Administer when level=3 - 3.4 mEq/L in place of KCl 11/30/2012 11/30/2012 Discontinued For PO4=1.5 - 1.9 mg/dL; Administer when level=3 - 3.4 mEq/L in place of KCl potassium chloride 20 mEq, 100 mL, Route: 12/03/2012 12/03/2012 Completed IVPB, Q2H, Start date: 12/03/12 8:00:00, Stop date: 12/03/12 11:00:00 normal saline 0.9% IV 1,000 mL, Rate: 1,000 12/02/2012 12/02/2012 Completed 1,000 mL ml/hr, Infuse over: 1 hr, Route: IV, kg, Total Volume: 1,000, Start date: 12/02/12 3:19:00, Duration: 1 doses or times, Stop date: 12/02/12 4:18:00 Protonix 40 mg, Route: IV, Drug 12/04/2012 12/04/2012 Completed form: INJ, ONCE, Dosing Weight 100, kg, Start date: 12/04/12 3:12:00, Stop date: 12/04/12 3:12:00 Insulin regular 6 unit, 0.06 mL, Route: 12/02/2012 12/02/2012 Completed IV, Drug form: SOLN, ONCE, Dosing Weight 100, kg, Priority: STAT, Start date: 12/02/12 3:19:00, Stop date: 12/02/12 3:19:00 NS 1,000 mL 1,000 mL, Rate: 125 11/29/2012 11/29/2012 Discontinued ml/hr, Infuse over: 8 hr, Route: IV, kg, Total Volume: 1,000, Start date: 11/29/12 6:53:00, Duration: 30 day, Stop date: 12/29/12 6:52:00 ceftriaxone 1 gm, Route: IVPB, Drug 11/29/2012 12/01/2012 Discontinued form: PDR/INJ, [id number], Dosing Weight 100, kg, Start date: 11/29/12 20:00:00, Duration: 30 day, Stop date: 12/28/12 20:00:00 potassium chloride 20 mEq, 100 mL, Route: 12/04/2012 12/04/2012 Completed IVPB, Q2H, Start date: 12/04/12 10:00:00, Duration: 2 doses or times, Stop date: 12/04/12 12:00:00 Insulin regular 100 unit + 100 mL, Rate: Start Insulin Drip Per ICU Protocol, Dosing Weight 100, kg, Route: IVPB, Total Volume: 100, Duration: 30 day, Stop date: 12/29/12 12:40:00, Replace Every: 24 hr, Initial Insulin Drip Rate 201211/29/2012 Deleted Sodium Chloride 0.9% (units/hour)=(Fasting Blood Glucose-60)X0.03 "mul... (titrate) 100 mL Initial Insulin Drip Rate (units/hour)=(Fasting Blood Glucose -60)X0.03 "multiplier". Dextrose 50% Syringe 12.5 gm, 25 mL, Route: 11/29/2012 11/29/2012 Discontinued IVP, Drug Form: INJ, Dosing Weight 100, kg, PRN, PRN Blood Glucose Results, Start date: 11/29/12 12:39:00, Duration: 30 day, Stop date: 12/29/12 12:38:00 Dextrose 50% Syringe 25 gm, 50 mL, Route: 11/29/2012 11/29/2012 Discontinued IVP, Drug Form: INJ, Dosing Weight 100, kg, PRN, PRN Blood Glucose Results, Start date: 11/29/12 12:39:00, Duration: 30 day, Stop date: 12/29/12 12:38:00 potassium chloride 40 mEq, Route: IV, ONCE, 12/03/2012 12/03/2012 Discontinued Dosing Weight 100, kg, Start date: 12/03/12 7:02:00, Stop date: 12/03/12 7:02:00 heparin 5000 units/mL 5,000 unit, Route: 11/30/2012 11/30/2012 Discontinued injectable solution SUB-Q, Drug form: INJ, Q8H, Dosing Weight 100, kg, Start date: 11/30/12 8:00:00, Duration: 30 day, Stop date: 12/30/12 0:00:00 erythromycin stearate 250 250 mg, 1 tab, PO, Q6H, 12/07/2012 12/21/2012 Ordered mg oral tablet 56 tab, Substitution Allowed, TAB Lortab 500 mg-7.5 mg/15 mL 5 ml, PO, Q6H, PRN, 120 11/29/2012 12/07/2012 Discontinued oral elixir mL, for pain, Substitution Allowed, Maintenance, ELIX Zofran 4 mg, 2 mL, Route: IV, 11/30/2012 12/07/2012 Discontinued Drug form: INJ, Q6H, Dosing Weight 100, kg, PRN Nausea, Start date: 11/30/12 13:32:00, Duration: 30 day, Stop date: 12/30/12 13:31:00 Dextrose 50% Syringe 25 gm, 50 mL, Route: 12/04/2012 12/07/2012 Discontinued IVP, Drug Form: INJ, Dosing Weight 100, kg, PRN, PRN Blood Glucose Results, Start date: 12/04/12 7:48:00, Duration: 30 day, Stop date: 01/03/13 7:47:00 Dextrose 50% Syringe 12.5 gm, 25 mL, Route: 12/04/2012 12/07/2012 Discontinued IVP, Drug Form: INJ, Dosing Weight 100, kg, PRN, PRN Blood Glucose Results, Start date: 12/04/12 7:48:00, Duration: 30 day, Stop date: 01/03/13 7:47:00 glucagon 1 mg, Route: IM, Drug 12/04/2012 12/07/2012 Discontinued form: PDR/INJ, PRN, Dosing Weight 100, kg, PRN Blood Glucose Results, Start date: 12/04/12 7:48:00, Duration: 30 day, Stop date: 01/03/13 7:47:00 insulin aspart 4 unit, 0.04 mL, Route: 12/04/2012 12/06/2012 Discontinued SUB-Q, Drug form: SOLN, Bedtime, Dosing Weight 100, kg, PRN Blood Glucose Results, Start date: 12/04/12 7:48:00, Duration: 30 day, Stop date: 01/03/13 7:47:00 insulin aspart 3 unit, 0.03 mL, Route: 12/04/2012 12/06/2012 Discontinued SUB-Q, Drug form: SOLN, Bedtime, Dosing Weight 100, kg, PRN Blood Glucose Results, Start date: 12/04/12 7:48:00, Duration: 30 day, Stop date: 01/03/13 7:47:00 insulin aspart 2 unit, 0.02 mL, Route: 12/04/2012 12/06/2012 Discontinued SUB-Q, Drug form: SOLN, Bedtime, Dosing Weight 100, kg, PRN Blood Glucose Results, Start date: 12/04/12 7:48:00, Duration: 30 day, Stop date: 01/03/13 7:47:00 insulin aspart 1 unit, 0.01 mL, Route: 12/04/2012 12/06/2012 Discontinued SUB-Q, Drug form: SOLN, Bedtime, Dosing Weight 100, kg, PRN Blood Glucose Results, Start date: 12/04/12 7:48:00, Duration: 30 day, Stop date: 01/03/13 7:47:00 insulin aspart 1 unit, 0.01 mL, Route: 12/04/2012 12/07/2012 Discontinued SUB-Q, Drug form: SOLN, TID-Before Meals, Dosing Weight 100, kg, PRN Blood Glucose Results, Start date: 12/04/12 7:48:00, Duration: 30 day, Stop date: 01/03/13 7:47:00 insulin aspart 5 unit, 0.05 mL, Route: 12/04/2012 12/07/2012 Discontinued SUB-Q, Drug form: SOLN, TID-Before Meals, Dosing Weight 100, kg, PRN Blood Glucose Results, Start date: 12/04/12 7:48:00, Duration: 30 day, Stop date: 01/03/13 7:47:00 insulin aspart 3 unit, 0.03 mL, Route: 12/04/2012 12/07/2012 Discontinued SUB-Q, Drug form: SOLN, TID-Before Meals, Dosing Weight 100, kg, PRN Blood Glucose Results, Start date: 12/04/12 7:48:00, Duration: 30 day, Stop date: 01/03/13 7:47:00 insulin aspart 2 unit, 0.02 mL, Route: 12/04/2012 12/07/2012 Discontinued SUB-Q, Drug form: SOLN, TID-Before Meals, Dosing Weight 100, kg, PRN Blood Glucose Results, Start date: 12/04/12 7:48:00, Duration: 30 day, Stop date: 01/03/13 7:47:00 insulin aspart 4 unit, 0.04 mL, Route: 12/04/2012 12/07/2012 Discontinued SUB-Q, Drug form: SOLN, TID-Before Meals, Dosing Weight 100, kg, PRN Blood Glucose Results, Start date: 12/04/12 7:48:00, Duration: 30 day, Stop date: 01/03/13 7:47:00 Phenergan 25 mg rectal 1 supp, MN, Q6H, PRN, 9 11/29/2012 Ordered suppository supp, Nausea & Vomiting, Substitution Allowed calcium chloride + Sodium 1,000 mg, 10 mL, Route: 12/02/2012 12/02/2012 Completed Chloride 0.9% IV 100 mL IVPB, ONCE, Start date: 12/02/12 5:08:00, Stop date: 12/02/12 5:08:00 Vital Signs Most recent to oldest 1 2 3 [Reference Range]: Height 162.56 cm 162.56 cm 162.56 cm (11/29/2012 07:28:00) (11/29/2012 06:07:00) (11/28/2012 17:46:00) Current Weight 98 kg 103.8 kg 103.9 kg (12/02/2012 04:50:00) (12/01/2012 04:24:00) (11/30/2012 05:11:00) Temperature Oral 98.3 DegF 98.6 DegF 97.6 DegF [96.4-99.1 DegF] (12/07/2012 11:00:00) (12/07/2012 08:00:00) (12/07/2012 04: 00:00) Systolic Blood Pressure 127 mmHg 104 mmHg 105 mmHg [90-140 mmHg] (12/07/2012 11:00:00) (12/07/2012 08:00:00) (12/07/2012 04:00: 00) Diastolic Blood Pressure 49 mmHg 57 mmHg 51 mmHg [60-90 mmHg] *LOW* *LOW* *LOW* (12/07/2012 11:00:00) (12/07/2012 08:00:00) (12/07/2012 04:00:00) Respiratory Rate [14-20 18 BRMIN 18 BRMIN 18 BRMIN BRMIN] (12/07/2012 11:00:00) (12/07/2012 08:00:00) (12/07/2012 04:00:00) Peripheral Pulse Rate 90 bpm 78 bpm 89 bpm [60-100 bpm] (12/07/2012 11:00:00) (12/07/2012 08:00:00) (12/07/2012 04:00: 00) Weight 100 kg 100.568 kg 101.364 kg (11/29/2012 07:28:00) (11/29/2012 06:07:00) (11/28/2012 17:46:00) Results BACTERIAL - SEROLOGY Most recent to oldest [Reference Range]: 1 2 3 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 The [facility] is authorized under the Clinical Laboratory Improvement Amendment of 1988 (CLIA-88) to performhigh complexity testing.BEDSIDE GLUCOSE TESTING Most recent to oldest 1 2 3 [Reference Range]: Gluc POC Lifscn [70-99 64 mg/dL 3 50 mg/dL 4 45 mg/dL 5 mg/dL] *LOW* *LOW* *LOW* (12/07/2012 11:29:00) (12/07/2012 08:22:00) (12/07/2012 08:19:00) Comment1 Notify RN/MD Notify RN/MD Notify RN/MD *NA* *NA* *NA* (12/07/2012 11:29:00) (12/07/2012 08:22:00) (12/07/2012 08:19:00) Comment2 Verify w/Lab Verify w/Lab *NA* *NA* (12/06/2012 17:01:00) (12/06/2012 11:42:00) 3Interpretive Data: Upper Reportable Limit: 200 mg/dL.4Interpretive Data: Upper Reportable Limit: 200 mg/dL.5Interpretive Data: Upper Reportable Limit: 200 mg/dL.URINALYSIS Most recent to oldest 1 2 3 [Reference Range]: UA Turbidity [Clear] Clear Clear Clear (12/02/2012 04:02:55) (11/30/2012 17:41:33) (11/28/2012 20:55:00) UA Color [Yellow] Yellow Light Yellow Yellow *NA* *NA* *NA* (12/02/2012 04:02:55) (11/30/2012 17:41:33) (11/28/2012 20:55:00) UA pH [5.0-8.0] 5.5 5.0 (12/02/2012 04:02:55) (11/30/2012 17:41:33) UA pH [5.0-8.0] 6.0 (11/28/2012 20:55:00) UA Spec Grav [<=1.030] 1.010 1.004 (12/02/2012 04:02:55) (11/30/2012 17:41:33) UA Spec Grav [<=1.030] 1.010 (11/28/2012 20:55:00) UA Glucose [Negative >=1000 mg/dL Negative mg/dL mg/dL] *ABN* *NA* (12/02/2012 04:02:55) (11/30/2012 17:41:33) UA Glucose [Negative] Negative (11/28/2012 20:55:00) UA Blood [Negative] Negative Negative Negative (12/02/2012 04:02:55) (11/30/2012 17:41:33) (11/28/2012 20:55:00) UA Ketones [Negative 40 mg/dL 10 mg/dL 40 mg/dL mg/dL] *ABN* *ABN* *ABN* (12/02/2012 04:02:55) (11/30/2012 17:41:33) (11/28/2012 20:55:00) UA Protein [Negative Negative mg/dL Negative mg/dL mg/dL] (12/02/2012 04:02:55) (11/30/2012 17:41:33) UA Protein [Negative] Negative (11/28/2012 20:55:00) UA Urobilinogen [0.1-1.0 <=1.0 mg/dL <=1.0 mg/dL mg/dL] *NA* *NA* (12/02/2012 04:02:55) (11/30/2012 17:41:33) UA Urobilinogen [0.1-1.0 0.2 EU/dL EU/dL] (11/28/2012 20:55:00) UA Bili [Negative] Negative Negative Small 6 *NA* *NA* *ABN* (12/02/2012 04:02:55) (11/30/2012 17:41:33) (11/28/2012 20:55:00) UA Leuk Est [Negative] Negative Negative Negative (12/02/2012 04:02:55) (11/30/2012 17:41:33) (11/28/2012 20:55:00) UA Nitrite [Negative] Negative Negative Negative (12/02/2012 04:02:55) (11/30/2012 17:41:33) (11/28/2012 20:55:00) UA WBC [0-5 /HPF] 1 /HPF <1 /HPF (12/02/2012 04:02:55) (11/30/2012 17:41:33) UA RBC [0-2 /HPF] <1 /HPF (12/02/2012 04:02:55) UA Sq Epi [Few /LPF] Moderate /LPF Moderate /LPF *ABN* *ABN* (12/02/2012 04:02:55) (11/30/2012 17:41:33) UA Mucus [None Seen Few /LPF Few /LPF /LPF] *NA* *NA* (12/02/2012 04:02:55) (11/30/2012 17:41:33) Micro? Not Indicated (11/28/2012 20:55:00) 6Result Comment: Interpret positive bilirubin results with caution. Confirmatory testing not possible due to the unavailability of reagent. Correlation with serum chemistry results recommended.CHEMISTRY Most recent to oldest 1 2 3 [Reference Range]: Sodium Lvl [135-145 mEq/L] 140 mEq/L 139 mEq/L 140 mEq/L (12/07/2012 05:35:00) (12/06/2012 05:49:00) (12/05/2012 04:23:45) Potassium Lvl [3.5-5.1 3.8 mEq/L 3.5 mEq/L 3.3 mEq/L mEq/L] (12/07/2012 05:35:00) (12/06/2012 05:49:00) *LOW* (12/05/2012 04:23:45) Chloride Lvl [95-109 mEq/L] 105 mEq/L 101 mEq/L 102 mEq/L (12/07/2012 05:35:00) (12/06/2012 05:49:00) (12/05/2012 04:23:45) CO2 [24-32 mEq/L] 26 mEq/L 28 mEq/L 29 mEq/L (12/07/2012 05:35:00) (12/06/2012 05:49:00) (12/05/2012 04:23:45) AGAP [10.0-20.0 mEq/L] 12.8 mEq/L 13.5 mEq/L 12.3 mEq/L (12/07/2012 05:35:00) (12/06/2012 05:49:00) (12/05/2012 04:23:45) Creatinine Lvl [0.5-1.4 0.6 mg/dL 0.7 mg/dL 0.6 mg/dL mg/dL] (12/07/2012 05:35:00) (12/06/2012 05:49:00) (12/05/2012 04:23:45) eGFR 109 mL/min/1.73m2 7 104 mL/min/1.73m2 8 109 mL/min/1.73m2 9 *NA* *NA* *NA* (12/07/2012 05:35:00) (12/06/2012 05:49:00) (12/05/2012 04:23:45) BUN [7-22 mg/dL] 2 mg/dL 2 mg/dL 1 mg/dL *LOW* *LOW* *LOW* (12/07/2012 05:35:00) (12/06/2012 05:49:00) (12/05/2012 04:23:45) B/C Ratio [6-25] 14 10 (11/29/2012 10:06:31) (11/28/2012 21:00:20) Glucose Lvl [70-99 mg/dL] 95 mg/dL 10 70 mg/dL 11 152 mg/dL 12 (12/07/2012 05:35:00) (12/06/2012 05:49:00) *HI* (12/05/2012 04:23:45) Total Protein [6.4-8.4 5.8 g/dL 6.3 g/dL 7.4 g/dL g/dL] *LOW* *LOW* (11/29/2012 10:06:31) (12/06/2012 05:49:00) (11/29/2012 23:29:00) Albumin Lvl [3.5-5.0 g/dL] 2.7 g/dL 2.9 g/dL 3.4 g/dL *LOW* *LOW* *LOW* (12/06/2012 05:49:00) (11/29/2012 23:29:00) (11/29/2012 10:06:31) Globulin [2.0-4.0 g/dL] 3.1 g/dL 3.4 g/dL 4.0 g/dL (12/06/2012 05:49:00) (11/29/2012 23:29:00) (11/29/2012 10:06:31) A/G Ratio [0.7-1.6] 0.9 0.9 0.8 (12/06/2012 05:49:00) (11/29/2012 23:29:00) (11/29/2012 10:06:31) Calcium Lvl [8.5-10.5 8.3 mg/dL 8.1 mg/dL 7.9 mg/dL mg/dL] *LOW* *LOW* *LOW* (12/07/2012 05:35:00) (12/06/2012 05:49:00) (12/05/2012 04:23:45) Phosphorus [2.5-4.5 mg/dL] 3.4 mg/dL 2.7 mg/dL 2.7 mg/dL (12/03/2012 01:02:00) (12/02/2012 03:00:00) (12/01/2012 02:25:00) Magnesium Lvl [1.8-2.4 1.8 mg/dL 1.9 mg/dL 2.0 mg/dL mg/dL] (12/03/2012 01:02:00) (12/02/2012 03:00:00) (12/01/2012 16:29:00) ALT [0-65 unit/L] 50 unit/L 20 unit/L 22 unit/L (12/06/2012 05:49:00) (11/29/2012 23:29:00) (11/29/2012 10:06:31) AST [0-37 unit/L] 74 unit/L 22 unit/L 17 unit/L *HI* (11/29/2012 23:29:00) (11/29/2012 10:06:31) (12/06/2012 05:49:00) Alk Phos [39-136 unit/L] 92 unit/L 127 unit/L 126 unit/L (12/06/2012 05:49:00) (11/29/2012 23:29:00) (11/29/2012 10:06:31) Bili Total [0.2-1.3 mg/dL] 0.2 mg/dL 0.4 mg/dL 0.8 mg/dL (12/06/2012 05:49:00) (11/29/2012 23:29:00) (11/29/2012 10:06:31) Bili Direct [0.0-0.3 mg/dL] 0.1 mg/dL 0.2 mg/dL (12/06/2012 05:49:00) (11/29/2012 23:29:00) Bili Indirect [0.0-1.0 0.1 mg/dL 0.2 mg/dL mg/dL] (12/06/2012 05:49:00) (11/29/2012 23:29:00) Lipase Lvl [73-393 unit/L] 62 unit/L 70 unit/L *LOW* *LOW* (12/06/2012 05:49:00) (11/28/2012 21:00:20) Ketone Quantitative [<=0.27 1.42 mmol/L 1.65 mmol/L 4.63 mmol/L mmol/L] *HI* *HI* *HI* (12/02/2012 04:49:21) (11/30/2012 04:40:22) (11/29/2012 15:16:00) Total CK [12-191 unit/L] 46 unit/L (11/29/2012 16:52:00) Troponin-T [0.000-0.100 <0.010 ng/mL ng/mL] (11/29/2012 16:52:00) Troponin-I [0.00-0.40 0.05 ng/mL <0.02 ng/mL ng/mL] (11/29/2012 16:52:00) (11/28/2012 21:00:20) Ca Ion mgdL [4.65-5.20 4.84 mg/dL 4.56 mg/dL 4.68 mg/dL mg/dL] (12/03/2012 01:02:00) *LOW* (12/01/2012 02:25:00) (12/02/2012 03:00:00) Ca Ion [1.16-1.30 mMol/L] 1.21 mMol/L 1.14 mMol/L 1.17 mMol/L (12/03/2012 01:02:00) *LOW* (12/01/2012 02:25:00) (12/02/2012 03:00:00) Ca Norm [1.16-1.30 mMol/L] 1.21 mMol/L 1.09 mMol/L 1.12 mMol/L (12/03/2012 01:02:00) *LOW* *LOW* (12/02/2012 03:00:00) (12/01/2012 02:25:00) Ca Norm mgdL [4.65-5.20 4.84 mg/dL 4.36 mg/dL 4.48 mg/dL mg/dL] (12/03/2012 01:02:00) *LOW* *LOW* (12/02/2012 03:00:00) (12/01/2012 02:25:00) U Sodium 87 mEq/L 13 *NA* (11/30/2012 01:49:00) U Potassium 31.2 mEq/L 14 *NA* (11/30/2012 01:49:00) U Chloride 134 mEq/L *NA* (11/30/2012 01:49:00) U Preg [Negative] Negative (11/28/2012 20:55:00) pH Art [7.35-7.45] 7.30 *LOW* (11/29/2012 12:15:59) pCO2 Art [35-45 mmHg] 25 mmHg 15 *CRIT* (11/29/2012 12:15:59) pO2 Art [80-100 mmHg] 96 mmHg (11/29/2012 12:15:59) HCO3 Art [22-26 mMol/L] 12 mMol/L *LOW* (11/29/2012 12:15:59) BE Art [-2-2 mMol/L] -12 mMol/L *LOW* (11/29/2012 12:15:59) O2 Sat Art [95.0-100.0 %] 96.6 % (11/29/2012 12:15:59) Temp Art 37.0 DegC *NA* (11/29/2012 12:15:59) POC A Hct [36.0-48.0 %] 29.0 % *LOW* (12/02/2012 03:45:00) POC A Ca Ion [1.16-1.30 1.12 mMol/L 1.17 mMol/L mMol/L] *LOW* (11/29/2012 15:03:00) (12/02/2012 03:45:00) POC A K [3.5-5.1 mEq/L] 3.4 mEq/L 3.6 mEq/L *LOW* (11/29/2012 15:03:00) (12/02/2012 03:45:00) POC A Source ART ART *NA* *NA* (12/02/2012 03:45:00) (11/29/2012 15:03:00) POC A Temp 37.0 DegC 37.0 DegC *NA* *NA* (12/02/2012 03:45:00) (11/29/2012 15:03:00) POC A pH [7.35-7.45] 7.44 7.33 (12/02/2012 03:45:00) *LOW* (11/29/2012 15:03:00) POC A PCO2 [35-45 mmHg] 38 mmHg 26 mmHg (12/02/2012 03:45:00) *CRIT* (11/29/2012 15:03:00) POC A PO2 [80-100 mmHg] 89 mmHg 115 mmHg (12/02/2012 03:45:00) *HI* (11/29/2012 15:03:00) POC A HCO3 [22-26 mMol/L] 26 mMol/L 14 mMol/L (12/02/2012 03:45:00) *LOW* (11/29/2012 15:03:00) POC A BE [-2-2 mMol/L] 2 mMol/L -11 mMol/L (12/02/2012 03:45:00) *LOW* (11/29/2012 15:03:00) POC A O2 Sat [95.0-100.0 %] 97.0 % 98.0 % (12/02/2012 03:45:00) (11/29/2012 15:03:00) POC A Glu [70-99 mg/dL] 305 mg/dL 327 mg/dL *HI* *HI* (12/02/2012 03:45:00) (11/29/2012 15:03:00) POC A LA [0.5-2.2 mMol/L] 0.8 mMol/L 1.3 mMol/L (12/02/2012 03:45:00) (11/29/2012 15:03:00) POC A Na [135-145 mEq/L] 130 mEq/L 137 mEq/L *LOW* (11/29/2012 15:03:00) (12/02/2012 03:45:00) POC V Source HANNA *NA* (11/29/201244:) POC V Temp 37.0 DegC *NA* (11/29/201244:) POC V pH [7.28-7.42] 7.42 (11/29/2012:) POC V PCO2 [38-52 mmHg] 31 mmHg *LOW* (11/29/201244:) POC V PO2 [20-49 mmHg] 51 mmHg *HI* (11/29/2012) POC V HCO3 [22-26 mmol/L] 20 mmol/L *LOW* (11/29/2012:) POC V BE [-2-2 mmol/L] -4 mmol/L *LOW* (11/29/2012) POC V O2 Sat [40.0-70.0 %] 86.0 % *HI* (11/29/2012:) POC V Glu [70-99 mg/dL] 144 mg/dL *HI* (11/29/2012) POC V Ion Ca [1.16-1.30 1.16 mMol/L mMol/L] (11/29/2012:) POC V K [3.5-5.1 mEq/L] 3.5 mEq/L (11/29/2012:) POC V LA [0.5-2.2 mMol/L] 0.8 mMol/L (11/29/2012:) POC V Na [135-145 mEq/L] 139 mEq/L (11/29/2012:) 7Result Comment: The eGFR is calculated using [...] values reflect the clinical guidelines of the [place] [employer].11Interpretive Data: Adult reference range values reflect the clinical guidelines of the [place] [employer].12Interpretive Data: Adult reference range values reflect the clinical guidelines of the [place] [employer].13Interpretive Data: No established reference ranges.14Interpretive Data: No established reference ranges.15Result Comment: Critical Result(s) called to jose rodriguez at _11/29/2012 12:25:56 CDT bykak_. Read back OK.HEMATOLOGY Most recent to oldest 1 2 3 [Reference Range]: WBC [3.7-10.4 K/CMM] 7.8 K/CMM 8.6 K/CMM 7.6 K/CMM (12/03/2012 01:02:00) (12/02/2012 04:02:51) (12/02/2012 03:00:00) RBC [4.20-5.40 M/CMM] 3.66 M/CMM 3.67 M/CMM 3.74 M/CMM *LOW* *LOW* *LOW* (12/03/2012 01:02:00) (12/02/2012 04:02:51) (12/02/2012 03:00:00) Hgb [12.0-16.0 g/dL] 9.0 g/dL 9.3 g/dL 9.2 g/dL *LOW* *LOW* *LOW* (12/03/2012 01:02:00) (12/02/2012 04:02:51) (12/02/2012 03:00:00) Hct [36.0-48.0 %] 27.8 % 27.9 % 28.6 % *LOW* *LOW* *LOW* (12/03/2012 01:02:00) (12/02/2012 04:02:51) (12/02/2012 03:00:00) MCV [81.0-99.0 fL] 75.9 fL 76.1 fL 76.3 fL *LOW* *LOW* *LOW* (12/03/2012 01:02:00) (12/02/2012 04:02:51) (12/02/2012 03:00:00) MCH [27.0-31.0 pg] 24.6 pg 25.2 pg 24.6 pg *LOW* *LOW* *LOW* (12/03/2012 01:02:00) (12/02/2012 04:02:51) (12/02/2012 03:00:00) MCHC [32.0-36.0 g/dL] 32.4 g/dL 33.2 g/dL 32.3 g/dL (12/03/2012 01:02:00) (12/02/2012 04:02:51) (12/02/2012 03:00:00) RDW [11.5-14.5 %] 18.9 % 19.3 % 19.2 % *HI* *HI* *HI* (12/03/2012 01:02:00) (12/02/2012 04:02:51) (12/02/2012 03:00:00) Platelet [133-450 K/CMM] 224 K/CMM 224 K/CMM 223 K/CMM (12/03/2012 01:02:00) (12/02/2012 04:02:51) (12/02/2012 03:00:00) MPV [7.4-10.4 fL] 8.5 fL 8.9 fL 9.2 fL (12/03/2012 01:02:00) (12/02/2012 04:02:51) (12/02/2012 03:00:00) Segs [45.0-75.0 %] 63.8 % 73.8 % 65.5 % (12/03/2012 01:02:00) (12/02/2012 04:02:51) (12/02/2012 03:00:00) Lymphocytes [20.0-40.0 %] 23.6 % 17.3 % 25.0 % (12/03/2012 01:02:00) *LOW* (12/02/2012 03:00:00) (12/02/2012 04:02:51) Monocytes [2.0-12.0 %] 9.1 % 7.6 % 8.4 % (12/03/2012 01:02:00) (12/02/2012 04:02:51) (12/02/2012 03:00:00) Eosinophils [0.0-4.0 %] 2.9 % 0.6 % 0.4 % (12/03/2012 01:02:00) (12/02/2012 04:02:51) (12/02/2012 03:00:00) Basophils [0.0-1.0 %] 0.6 % 0.7 % 0.7 % (12/03/2012 01:02:00) (12/02/2012 04:02:51) (12/02/2012 03:00:00) Segs-Bands # [1.5-8.1 5.0 K/CMM 6.4 K/CMM 5.0 K/CMM K/CMM] (12/03/2012 01:02:00) (12/02/2012 04:02:51) (12/02/2012 03:00:00) Lymphocytes # [1.0-5.5 1.8 K/CMM 1.5 K/CMM 1.9 K/CMM K/CMM] (12/03/2012 01:02:00) (12/02/2012 04:02:51) (12/02/2012 03:00:00) Monocytes # [0.0-0.8 0.7 K/CMM 0.7 K/CMM 0.6 K/CMM K/CMM] (12/03/2012 01:02:00) (12/02/2012 04:02:51) (12/02/2012 03:00:00) Eosinophils # [0.0-0.5 0.2 K/CMM 0.1 K/CMM 0.2 K/CMM K/CMM] (12/03/2012 01:02:00) (12/02/2012 04:02:51) (11/28/2012 21:00:20) Basophils # [0.0-0.2 0.1 K/CMM 0.1 K/CMM 0.1 K/CMM K/CMM] (12/02/2012 04:02:51) (12/02/2012 03:00:00) (11/29/2012 23:29:00) Anisocyte [None Seen] 1+ *ABN* (11/28/2012 21:00:20) Polychrom [None Seen] Slight (11/28/2012 21:00:20) Hypochrom [None Seen] Slight (11/28/2012 21:00:20) Microcyte [None Seen] 1+ 1+ 1+ *ABN* *ABN* *ABN* (12/03/2012 01:02:00) (12/02/2012 04:02:51) (12/02/2012 03:00:00) Large Plt [None Seen] Slight *ABN* (11/28/2012 21:00:20) PT [12.0-14.7 seconds] 14.1 seconds 13.9 seconds (11/30/2012 04:40:22) (11/29/2012 23:29:00) INR [0.85-1.17] 1.07 16 1.05 17 (11/30/2012 04:40:22) (11/29/2012 23:29:00) PTT [22.9-35.8 seconds] 28.1 seconds 18 26.5 seconds 19 (11/30/2012 04:40:22) (11/29/2012 23:29:00) 16Interpretive Data: RECOMMENDED RANGES FOR PROTIME INR: 2.0-3.0 for most medical and surgical thromboembolic states. 2.5-3.5 for artificial heart valves and recurrent embolism. INR SHOULD BE USED ONLY FOR PATIENTS ON STABLE ANTICOAGULANT THERAPY.17Interpretive Data: RECOMMENDED RANGES FOR PROTIME INR: 2.0-3.0 for most medical and surgical thromboembolic states. 2.5-3.5 for artificial heart valves and recurrent embolism. INR SHOULD BE USED ONLY FOR PATIENTS ON STABLE ANTICOAGULANT THERAPY.18Interpretive Data: Heparin Therapeutic Range: 57 - 92 [id number] Data: Heparin Therapeutic Range: 57 - 92 Seconds Microbiology Reports PROCEDURE:Culture: Blood STATUS: Auth (Verified) BODY SITE: Arm L COLLECTED DATE/TIME: 12/02/2012 07:00:00 SOURCE: Blood FREE TEXT SOURCE: FINAL REPORTS Final ReportNo Growth At 5 DaysPRELIMINARY REPORTS* Preliminary ReportNo Growth At 4 Days Preliminary ReportNo Growth At 3 Days Preliminary ReportNo Growth At 2 Days Preliminary ReportNo Growth At 1 Day Preliminary ReportNo Growth At 5 Days PROCEDURE:Culture: Blood STATUS: Auth (Verified) BODY SITE: Wrist R COLLECTED DATE/TIME: 12/02/2012 07:00:00 SOURCE: Blood FREE TEXT SOURCE: FINAL REPORTS Final ReportNo Growth At 5 DaysPRELIMINARY REPORTS* Preliminary ReportNo Growth At 4 Days Preliminary ReportNo Growth At 2 Days Preliminary ReportNo Growth At 3 Days Preliminary ReportNo Growth At 1 Day Preliminary ReportNo Growth At 5 Days PROCEDURE:Culture: MRSA STATUS: Auth (Verified) BODY SITE: COLLECTED DATE/TIME: 12/02/2012 04:51:23 SOURCE: Nasal Swab FREE TEXT SOURCE: FINAL REPORTS Final ReportFew Methicillin Resistant Staphylococcus aureus Isolated Significant Findings Called To: Jeramy Last At: 12/03/2012 14:22:37 Called By: NIDIA Read Back Ok PROCEDURE:Culture: Resistant Acinetobacter Screen STATUS: Auth (Verified) BODY SITE: COLLECTED DATE/TIME: 12/02/2012 04:51:16 SOURCE: Nasal Swab FREE TEXT SOURCE: FINAL REPORTS Final ReportNo Acinetobacter IsolatedPRELIMINARY REPORTS Preliminary ReportCulture In Progress PROCEDURE:Culture: Urine STATUS: Auth (Verified) BODY SITE: COLLECTED DATE/TIME: 12/02/2012 04:00:21 SOURCE: Urine, Clean Catch FREE TEXT SOURCE: FINAL REPORTS Final [id number] - 50,000 CFU/mL Yeast <10,000 CFU/mL Skin EsPRELIMINARY REPORTS Preliminary ReportNo Growth; Holding Procedures Procedures Date Related Diagnosis Heart procedure 1 1cardiac stent for [place]
--- OUTSIDE RECORDS SUMMARY | 2018-02-13 16:12 | XMS REPORT | CCD ---
:[address] 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 Medications Medication Instructions Start Date End Date Status Insulin regular 8 unit, Route: SUB-Q, 04/02/2013 04/02/2013 Discontinued TID-Before Meals, Dosing Weight 90, kg, PRN Blood Glucose Results, Start date: 04/02/13 20:29:00, Duration: 30 day, Stop date: 05/02/13 20:28:00 Insulin regular 10 unit, Route: SUB-Q, 04/02/2013 04/02/2013 Discontinued TID-Before Meals, Dosing Weight 90, kg, PRN Blood Glucose Results, Start date: 04/02/13 20:29:00, Duration: 30 day, Stop date: 05/02/13 20:28:00 Insulin regular 2 unit, Route: SUB-Q, 04/02/2013 04/02/2013 Discontinued TID-Before Meals, Dosing Weight 90, kg, PRN Blood Glucose Results, Start date: 04/02/13 20:29:00, Duration: 30 day, Stop date: 05/02/13 20:28:00 Insulin regular 4 unit, Route: SUB-Q, 04/02/2013 04/02/2013 Discontinued TID-Before Meals, Dosing Weight 90, kg, PRN Blood Glucose Results, Start date: 04/02/13 20:29:00, Duration: 30 day, Stop date: 05/02/13 20:28:00 Insulin regular 6 unit, Route: SUB-Q, 04/02/2013 04/02/2013 Discontinued TID-Before Meals, Dosing Weight 90, kg, PRN Blood Glucose Results, Start date: 04/02/13 20:29:00, Duration: 30 day, Stop date: 05/02/13 20:28:00 Insulin regular 4 unit, Route: SUB-Q, 04/02/2013 04/02/2013 Discontinued Bedtime, Dosing Weight 90, kg, PRN Blood Glucose Results, Start date: 04/02/13 20:29:00, Duration: 30 day, Stop date: 05/02/13 20:28:00 Insulin regular 3 unit, Route: SUB-Q, 04/02/2013 04/02/2013 Discontinued Bedtime, Dosing Weight 90, kg, PRN Blood Glucose Results, Start date: 04/02/13 20:29:00, Duration: 30 day, Stop date: 05/02/13 20:28:00 Insulin regular 2 unit, Route: SUB-Q, 04/02/2013 04/02/2013 Discontinued Bedtime, Dosing Weight 90, kg, PRN Blood Glucose Results, Start date: 04/02/13 20:29:00, Duration: 30 day, Stop date: 05/02/13 20:28:00 Insulin regular 1 unit, Route: SUB-Q, 04/02/2013 04/02/2013 Discontinued Drug form: INJ, Bedtime, Dosing Weight 90, kg, PRN Blood Glucose Results, Start date: 04/02/13 20:29:00, Duration: 30 day, Stop date: 05/02/13 20:28:00 glucagon 1 mg, Route: IM, PRN, 04/02/2013 04/02/2013 Discontinued Dosing Weight 90, kg, PRN Blood Glucose Results, Start date: 04/02/13 20:29:00, Duration: 30 day, Stop date: 05/02/13 20:28:00 Dextrose 50% Syringe 50 mL, Route: IVP, 04/02/2013 04/02/2013 Discontinued Dosing Weight 90, kg, PRN, PRN Blood Glucose Results, Start date: 04/02/13 20:29:00, Duration: 30 day, Stop date: 05/02/13 20:28:00 Dextrose 50% Syringe 25 mL, Route: IVP, 04/02/2013 04/02/2013 Discontinued Dosing Weight 90, kg, PRN, PRN Blood Glucose Results, Start date: 04/02/13 20:29:00, Duration: 30 day, Stop date: 05/02/13 20:28:00 Zofran 4 mg, 2 mL, Route: IV, 04/02/2013 04/03/2013 Discontinued Drug form: INJ, Q8H, Dosing Weight 90, kg, PRN Nausea, Start date: 04/02/13 20:29:00, Duration: 30 day, Stop date: 05/02/13 20:28:00 lisinopril 20 mg, 1 tab, Route: PO, 04/02/2013 04/03/2013 Discontinued Drug form: TAB, Daily, Dosing Weight 90, kg, Start date: 04/02/13 20:30:00, Duration: 30 day, Stop date: 05/02/13 9:00:00 Maalox Advanced Regular 30 mL, Route: PO, Drug 04/02/2013 04/03/2013 Discontinued Strength SUSP Form: SUSP, Dosing Weight 90, kg, QID, PRN Indigestion, Start date: 04/02/13 20:28:00, Duration: 30 day, Stop date: 05/02/13 20:27:00 aspirin 325 mg tablet, 325 mg, 1 tab, Route: 04/03/2013 04/03/2013 Discontinued enteric coated PO, Drug form: ECTAB, Daily, Dosing Weight 90, kg, Start date: 04/03/13 9:00:00, Duration: 30 day, Stop date: 05/02/13 9:00:00 nitroglycerin 0.4 mg, 1 tab, Route: 04/02/2013 04/03/2013 Discontinued SL, Drug form: TAB, Q5Min, Dosing Weight 90, kg, PRN Chest Pain, Priority: STAT, Start date: 04/02/13 16:31:00, Duration: 3 doses or times, Stop date: Limited # of times aspirin 325 mg, 1 tab, Route: 04/02/2013 04/02/2013 Completed PO, Drug form: ECTAB, ONCE, Dosing Weight 90, kg, Priority: STAT, Start date: 04/02/13 16:31:00, Stop date: 04/02/13 16:31:00 morphine Sulfate 4 mg, 1 mL, Route: IVP, 04/02/2013 04/02/2013 Completed Drug form: INJ, ONCE, Dosing Weight 90, kg, Start date: 04/02/13 16:30:00, Stop date: 04/02/13 16:30:00 hydrALAZINE 10 mg, 0.5 mL, Route: 04/02/2013 04/03/2013 Discontinued IVP, Drug form: INJ, Q4H, Dosing Weight 90, kg, PRN Hypertension, Start date: 04/02/13 20:37:00, Duration: 30 day, Stop date: 05/02/13 20:36:00 hydrALAZINE 10 mg, Route: IVP, Q4H, 04/02/2013 04/02/2013 Discontinued Dosing Weight 90, kg, PRN Hypertension, Start date: 04/02/13 20:37:00, Duration: 30 day, Stop date: 05/02/13 20:36:00 Cymbalta 120 mg, 2 cap, Route: 04/02/2013 04/03/2013 Discontinued PO, Drug form: DRC, Bedtime, Dosing Weight 90, kg, Start date: 04/02/13 23:30:00, Duration: 30 day, Stop date: 05/02/13 21:00:00 Phenergan 12.5 mg, 0.5 mL, Route: 04/02/2013 04/02/2013 Completed IVPB, Drug form: INJ, ONCE, Dosing Weight 90, kg, Start date: 04/02/13 20:11:00, Stop date: 04/02/13 20:11:00 morphine Sulfate 4 mg, 1 mL, Route: IVP, 04/02/2013 04/02/2013 Completed Drug form: INJ, ONCE, Dosing Weight 90, kg, Start date: 04/02/13 20:10:00, Stop date: 04/02/13 20:10:00 metoprolol tartrate 12.5 mg, 1 ea, Route: 04/02/2013 04/03/2013 Discontinued PO, Drug form: TAB, BID, Dosing Weight 90, kg, Start date: 04/02/13 20:30:00, Duration: 30 day, Stop date: 05/02/13 17:00:00 heparin 5000 units/mL 5,000 unit, 1 mL, Route: 04/03/2013 04/03/2013 Discontinued injectable solution SUB-Q, Drug form: INJ, Q8H, Dosing Weight 90, kg, Start date: 04/03/13 0:00:00, Duration: 30 day, Stop date: 05/02/13 16:00:00 Zofran 4 mg, 2 mL, Route: IVP, 04/02/2013 04/02/2013 Discontinued Drug form: INJ, ONCE, Dosing Weight 90, kg, Priority: STAT, Start date: 04/02/13 16:52:00, Stop date: 04/02/13 16:52:00 Phenergan 12.5 mg, 0.5 mL, Route: 04/02/2013 04/02/2013 Completed IVPB, Drug form: INJ, ONCE, Dosing Weight 90, kg, Priority: STAT, Start date: 04/02/13 17:11:00, Stop date: 04/02/13 17:11:00 Zocor 40 mg, 1 tab, Route: PO, 04/02/2013 04/03/2013 Discontinued Drug form: TAB, Bedtime, Dosing Weight 90, kg, Start date: 04/02/13 21:00:00, Duration: 30 day, Stop date: 05/01/13 21:00:00 Effient 10 mg, 1 tab, Route: PO, 04/03/2013 04/03/2013 Discontinued Drug form: TAB, Daily, Dosing Weight 90, kg, Start date: 04/03/13 9:00:00, Duration: 30 day, Stop date: 05/02/13 9:00:00 Lyrica 150 mg, 2 cap, Route: 04/03/2013 04/03/2013 Discontinued PO, Drug form: CAP, BID, Dosing Weight 90, kg, Start date: 04/03/13 9:00:00, Duration: 30 day, Stop date: 05/02/13 17:00:00 Protonix 40 mg, 1 tab, Route: PO, 04/03/2013 04/03/2013 Discontinued Drug form: ECTAB, BID, Dosing Weight 90, kg, Start date: 04/03/13 9:00:00, Duration: 30 day, Stop date: 05/02/13 17:00:00 metoclopramide 10 mg oral 10 mg, 1 tab, Route: PO, 04/03/2013 04/03/2013 Discontinued tablet Drug form: TAB, TID, Dosing Weight 90, kg, Start date: 04/03/13 9:00:00, Duration: 30 day, Stop date: 05/02/13 17:00:00 meloxicam 7.5 mg, 1 tab, Route: 04/03/2013 04/03/2013 Discontinued PO, Drug form: TAB, BID, Dosing Weight 90, kg, Priority: Routine, Start date: 04/03/13 9:00:00, Duration: 30 day, Stop date: 05/02/13 17:00:00 magnesium oxide 400 mg, 1 tab, Route: 04/02/2013 04/03/2013 Discontinued PO, Drug form: TAB, Daily, Dosing Weight 90, kg, Priority: NOW, Start date: 04/02/13 20:45:00, Duration: 30 day, Stop date: 05/02/13 9:00:00 insulin aspart 8 unit, 0.08 mL, Route: 04/02/2013 04/03/2013 Discontinued SUB-Q, Drug form: SOLN, TID-Before Meals, Dosing Weight 90, kg, PRN Blood Glucose Results, Start date: 04/02/13 20:30:00, Duration: 30 day, Stop date: 05/02/13 20:29:00 insulin aspart 10 unit, 0.1 mL, Route: 04/02/2013 04/03/2013 Discontinued SUB-Q, Drug form: SOLN, TID-Before Meals, Dosing Weight 90, kg, PRN Blood Glucose Results, Start date: 04/02/13 20:30:00, Duration: 30 day, Stop date: 05/02/13 20:29:00 insulin aspart 2 unit, 0.02 mL, Route: 04/02/2013 04/03/2013 Discontinued SUB-Q, Drug form: SOLN, TID-Before Meals, Dosing Weight 90, kg, PRN Blood Glucose Results, Start date: 04/02/13 20:30:00, Duration: 30 day, Stop date: 05/02/13 20:29:00 insulin aspart 4 unit, 0.04 mL, Route: 04/02/2013 04/03/2013 Discontinued SUB-Q, Drug form: SOLN, TID-Before Meals, Dosing Weight 90, kg, PRN Blood Glucose Results, Start date: 04/02/13 20:30:00, Duration: 30 day, Stop date: 05/02/13 20:29:00 insulin aspart 6 unit, 0.06 mL, Route: 04/02/2013 04/03/2013 Discontinued SUB-Q, Drug form: SOLN, TID-Before Meals, Dosing Weight 90, kg, PRN Blood Glucose Results, Start date: 04/02/13 20:30:00, Duration: 30 day, Stop date: 05/02/13 20:29:00 lisinopril 20 mg, Route: PO, Drug 04/03/2013 04/02/2013 Canceled form: TAB, Daily, Dosing Weight 90, kg, Start date: 04/03/13 9:00:00, Duration: 30 day, Stop date: 05/02/13 9:00:00 glucagon 1 mg, Route: IM, Drug 04/02/2013 04/03/2013 Discontinued form: PDR/INJ, PRN, Dosing Weight 90, kg, PRN Blood Glucose Results, Start date: 04/02/13 20:30:00, Duration: 30 day, Stop date: 05/02/13 20:29:00 insulin aspart 1 unit, 0.01 mL, Route: 04/02/2013 04/03/2013 Discontinued SUB-Q, Drug form: SOLN, Bedtime, Dosing Weight 90, kg, PRN Blood Glucose Results, Start date: 04/02/13 20:30:00, Duration: 30 day, Stop date: 05/02/13 20:29:00 Dextrose 50% Syringe 25 gm, 50 mL, Route: 04/02/2013 04/03/2013 Discontinued IVP, Drug Form: INJ, Dosing Weight 90, kg, PRN, PRN Blood Glucose Results, Start date: 04/02/13 20:30:00, Duration: 30 day, Stop date: 05/02/13 20:29:00 Dextrose 50% Syringe 12.5 gm, 25 mL, Route: 04/02/2013 04/03/2013 Discontinued IVP, Drug Form: INJ, Dosing Weight 90, kg, PRN, PRN Blood Glucose Results, Start date: 04/02/13 20:30:00, Duration: 30 day, Stop date: 05/02/13 20:29:00 insulin aspart 3 unit, 0.03 mL, Route: 04/02/2013 04/03/2013 Discontinued SUB-Q, Drug form: SOLN, Bedtime, Dosing Weight 90, kg, PRN Blood Glucose Results, Start date: 04/02/13 20:30:00, Duration: 30 day, Stop date: 05/02/13 20:29:00 insulin aspart 2 unit, 0.02 mL, Route: 04/02/2013 04/03/2013 Discontinued SUB-Q, Drug form: SOLN, Bedtime, Dosing Weight 90, kg, PRN Blood Glucose Results, Start date: 04/02/13 20:30:00, Duration: 30 day, Stop date: 05/02/13 20:29:00 insulin aspart 4 unit, 0.04 mL, Route: 04/02/2013 04/03/2013 Discontinued SUB-Q, Drug form: SOLN, Bedtime, Dosing Weight 90, kg, PRN Blood Glucose Results, Start date: 04/02/13 20:30:00, Duration: 30 day, Stop date: 05/02/13 20:29:00 Levemir 12 unit, Route: SUB-Q, 04/03/2013 04/02/2013 Canceled BID, Dosing Weight 90, kg, Start date: 04/03/13 9:00:00, Duration: 30 day, Stop date: 05/02/13 17:00:00 ferrous sulfate 325 mg, 1 tab, Route: 04/03/2013 04/03/2013 Discontinued PO, Drug form: ECTAB, TID, Dosing Weight 90, kg, Start date: 04/03/13 9:00:00, Duration: 30 day, Stop date: 05/02/13 17:00:00 Cymbalta 60 mg, 1 cap, Route: PO, 04/02/2013 04/02/2013 Discontinued Drug form: DRC, Bedtime, Dosing Weight 90, kg, Start date: 04/02/13 21:00:00, Duration: 30 day, Stop date: 05/01/13 21:00:00 Flexeril 10 mg, 1 tab, Route: PO, 04/02/2013 04/03/2013 Discontinued Drug form: TAB, TID, Dosing Weight 90, kg, PRN Spasm, Start date: 04/02/13 20:22:00, Duration: 30 day, Stop date: 05/02/13 20:21:00 clonazepam 0.5 mg, 1 tab, Route: 04/03/2013 04/03/2013 Discontinued PO, Drug form: TAB, TID, Dosing Weight 90, kg, Start date: 04/03/13 9:00:00, Duration: 30 day, Stop date: 05/02/13 17:00:00 NovoLog 6 unit, 0.06 mL, Route: 04/03/2013 04/03/2013 Discontinued SUB-Q, Drug form: SOLN, TID-Before Meals, Dosing Weight 90, kg, Start date: 04/03/13 7:30:00, Duration: 30 day, Stop date: 05/02/13 16:30:00 Levemir 12 unit, 0.12 mL, Route: 04/02/2013 04/03/2013 Discontinued SUB-Q, Drug form: INJ, BID, Dosing Weight 90, kg, Start date: 04/02/13 20:45:00, Duration: 30 day, Stop date: 05/02/13 17:00:00 acetaminophen-hydrocodone 1 tab, Route: PO, Drug 04/02/2013 04/03/2013 Discontinued 325 mg-5 mg oral tablet Form: TAB, Dosing Weight 90, kg, Q4H, PRN Pain, Start date: 04/02/13 20:22:00, Duration: 30 day, Stop date: 05/02/13 20:21:00 Vital Signs Most recent to oldest 1 2 3 [Reference Range]: Height 162.56 cm 162.56 cm (04/02/2013 22:39:00) (04/02/2013 16:15:00) Temperature Oral 97.1 DegF 97.0 DegF 97 DegF [96.4-99.1 DegF] (04/03/2013 17:19:00) (04/03/2013 11:30:00) (04/03/2013 11: 30:00) Systolic Blood Pressure 94 mmHg 116 mmHg 116 mmHg [90-140 mmHg] (04/03/2013 17:19:00) (04/03/2013 11:30:00) (04/03/2013 11:30: 00) Diastolic Blood Pressure 66 mmHg 28 mmHg 28 mmHg [60-90 mmHg] (04/03/2013 17:19:00) *LOW* *LOW* (04/03/2013 11:30:00) (04/03/2013 11:30:00) Respiratory Rate [14-20 18 BRMIN 20 BRMIN 20 BRMIN BRMIN] (04/03/2013 17:19:00) (04/03/2013 11:30:00) (04/03/2013 11:30:00) Peripheral Pulse Rate 79 bpm 100 bpm 100 bpm [60-100 bpm] (04/03/2013 17:19:00) (04/03/2013 11:30:00) (04/03/2013 11:30: 00) Weight 90 kg 90 kg (04/02/2013 22:39:00) (04/02/2013 16:15:00) Results BEDSIDE GLUCOSE TESTING Most recent to oldest 1 2 3 [Reference Range]: Gluc POC Lifscn [70-99 226 mg/dL 1 198 mg/dL 2 182 mg/dL 3 mg/dL] *HI* *HI* *HI* (04/03/2013 16:10:00) (04/03/2013 10:55:00) (04/03/2013 07:57:00) Comment1 Notify RN/MD Notify RN/MD Notify RN/MD *NA* *NA* *NA* (04/03/2013 16:10:00) (04/03/2013 10:55:00) (04/03/2013 07:57:00) Comment2 Sliding Scale Sliding Scale Sliding Scale *NA* *NA* *NA* (04/03/2013 16:10:00) (04/03/2013 10:55:00) (04/03/2013 07:57:00) 1Interpretive Data: Upper Reportable Limit: 200 mg/dL.2Interpretive Data: Upper Reportable Limit: 200 mg/dL.3Interpretive Data: Upper Reportable Limit: 200 mg/dL.CHEMISTRY Most recent to oldest 1 2 3 [Reference Range]: Sodium Lvl [135-145 mEq/L] 137 mEq/L 136 mEq/L (04/03/2013 04:00:00) (04/02/2013 17:09:00) Potassium Lvl [3.5-5.1 3.9 mEq/L 3.5 mEq/L mEq/L] (04/03/2013 04:00:00) (04/02/2013 17:09:00) Chloride Lvl [95-109 mEq/L] 98 mEq/L 97 mEq/L (04/03/2013 04:00:00) (04/02/2013 17:09:00) CO2 [24-32 mEq/L] 25 mEq/L 25 mEq/L (04/03/2013 04:00:00) (04/02/2013 17:09:00) AGAP [10.0-20.0 mEq/L] 17.9 mEq/L 17.5 mEq/L (04/03/2013 04:00:00) (04/02/2013 17:09:00) Creatinine Lvl [0.5-1.4 0.6 mg/dL 0.8 mg/dL mg/dL] (04/03/2013 04:00:00) (04/02/2013 17:09:00) eGFR 109 mL/min/1.73m2 4 88 mL/min/1.73m2 5 *NA* *NA* (04/03/2013 04:00:00) (04/02/2013 17:09:00) BUN [7-22 mg/dL] 3 mg/dL 2 mg/dL *LOW* *LOW* (04/03/2013 04:00:00) (04/02/2013 17:09:00) Glucose Lvl [70-99 mg/dL] 266 mg/dL 6 163 mg/dL 7 *HI* *HI* (04/03/2013 04:00:00) (04/02/2013 17:09:00) Calcium Lvl [8.5-10.5 8.2 mg/dL 8.6 mg/dL mg/dL] *LOW* (04/02/2013 17:09:00) (04/03/2013 04:00:00) ALT [0-65 unit/L] 22 unit/L (04/02/2013 20:22:00) AST [0-37 unit/L] 31 unit/L (04/02/2013 20:22:00) Bili Total [0.2-1.3 mg/dL] 0.4 mg/dL (04/02/2013 20:22:00) Bili Direct [0.0-0.3 mg/dL] 0.1 mg/dL (04/02/2013 20:22:00) Bili Indirect [0.0-1.0 0.3 mg/dL mg/dL] (04/02/2013 20:22:00) Lipase Lvl [73-393 unit/L] 54 unit/L *LOW* (04/02/2013 20:22:00) Total CK [12-191 unit/L] 41 unit/L 51 unit/L 24 unit/L (04/03/2013 04:00:00) (04/02/2013 23:10:00) (04/02/2013 17:09:00) Troponin-T [0.000-0.100 <0.010 ng/mL <0.010 ng/mL ng/mL] (04/03/2013 04:00:00) (04/02/2013 23:10:00) Troponin-I [0.00-0.40 <0.02 ng/mL <0.02 ng/mL <0.02 ng/mL ng/mL] (04/03/2013 04:00:00) (04/02/2013 23:10:00) (04/02/2013 17:09:00) 4Result Comment: The eGFR is calculated using [...] values reflect the clinical guidelines of the [place] [employer].7Interpretive Data: Adult reference range values reflect the clinical guidelines of the [place] [employer].HEMATOLOGY Most recent to oldest [Reference 1 2 3 Range]: WBC [3.7-10.4 K/CMM] 10.3 K/CMM 9.0 K/CMM (04/03/2013 04:00:00) (04/02/2013 17:09:00) RBC [4.20-5.40 M/CMM] 4.22 M/CMM 4.50 M/CMM (04/03/2013 04:00:00) (04/02/2013:09:00) Hgb [12.0-16.0 g/dL] 10.5 g/dL 11.4 g/dL *LOW* *LOW* (04/03/2013 04:00:00) (04/02/2013:09:00) Hct [36.0-48.0 %] 33.5 % 34.2 % *LOW* *LOW* (04/03/2013 04:00:00) (04/02/2013 17:09:00) MCV [81.0-99.0 fL] 79.5 fL 76.0 fL *LOW* *LOW* (04/03/2013 04:00:00) (04/02/2013 17:09:00) MCH [27.0-31.0 pg] 24.8 pg 25.4 pg *LOW* *LOW* (04/03/2013 04:00:00) (04/02/2013 17:09:00) MCHC [32.0-36.0 g/dL] 31.2 g/dL 33.4 g/dL *LOW* (04/02/2013 17:09:00) (04/03/2013 04:00:00) RDW [11.5-14.5 %] 18.7 % 17.3 % *HI* *HI* (04/03/2013 04:00:00) (04/02/2013 17:09:00) Platelet [133-450 K/CMM] 276 K/CMM 378 K/CMM (04/03/2013 04:00:00) (04/02/2013 17:09:00) MPV [7.4-10.4 fL] 8.8 fL 8.4 fL (04/03/2013 04:00:00) (04/02/2013 17:09:00) Segs [45.0-75.0 %] 58.6 % 74.3 % (04/03/2013 04:00:00) (04/02/2013 17:09:00) Lymphocytes [20.0-40.0 %] 29.9 % 15.2 % (04/03/2013 04:00:00) *LOW* (04/02/2013 17:09:00) Monocytes [2.0-12.0 %] 7.4 % 7.6 % (04/03/2013 04:00:00) (04/02/2013 17:09:00) Eosinophils [0.0-4.0 %] 2.8 % 1.6 % (04/03/2013 04:00:00) (04/02/2013 17:09:00) Basophils [0.0-1.0 %] 1.3 % 1.3 % *HI* *HI* (04/03/2013 04:00:00) (04/02/2013 17:09:00) Segs-Bands # [1.5-8.1 K/CMM] 6.0 K/CMM 6.7 K/CMM (04/03/2013 04:00:00) (04/02/2013 17:09:00) Lymphocytes # [1.0-5.5 K/CMM] 3.1 K/CMM 1.4 K/CMM (04/03/2013 04:00:00) (04/02/2013 17:09:00) Monocytes # [0.0-0.8 K/CMM] 0.8 K/CMM 0.7 K/CMM (04/03/2013 04:00:00) (04/02/2013 17:09:00) Eosinophils # [0.0-0.5 K/CMM] 0.3 K/CMM 0.1 K/CMM (04/03/2013 04:00:00) (04/02/2013 17:09:00) Basophils # [0.0-0.2 K/CMM] 0.1 K/CMM 0.1 K/CMM (04/03/2013 04:00:00) (04/02/2013 17:09:00) Microcyte [None Seen] 2+ *ABN* (04/02/2013 17:09:00)
--- OUTSIDE RECORDS SUMMARY | 2018-02-13 16:12 | XMS REPORT | CCD ---
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 Medications Medication Instructions Start Date End Date Status Zocor 40 mg oral tablet 40 mg, 1 tab, PO, 03/06/2013 Ordered Bedtime, 30 tab, Substitution Allowed, Maintenance ProAir HFA 90 mcg/inh Substitution Allowed, 03/06/2013 Ordered inhalation aerosol with Maintenance adapter Flexeril 10 mg oral tablet 10 mg, 1 tab, PO, TID, 03/06/2013 Ordered PRN, 30 tab, for spasm, Substitution Allowed, TAB Protonix 40 mg oral 40 mg, 1 tab, PO, BID, 03/06/2013 Ordered enteric coated tablet 30 tab, Substitution Allowed, ECTAB Lyrica 150 mg oral capsule 150 mg, 1 cap, PO, BID, 03/06/2013 Ordered 90 cap, Substitution Allowed, CAP Levemir 12 unit, 0.12 mL, Route: 03/07/2013 03/07/2013 Completed SUB-Q, Drug form: INJ, ONCE, Dosing Weight 90, kg, Start date: 03/07/13 6:10:00, Stop date: 03/07/13 6:10:00 Flagyl 500 mg oral tablet 500 mg, 1 tab, PO, Q6H, 03/06/2013 03/07/2013 Discontinued 30 tab, Substitution Allowed metoclopramide 10 mg oral 10 mg, 1 tab, PO, TID, 03/06/2013 Ordered tablet 56 tab, Substitution Allowed, TAB insulin aspart 10 unit, 0.1 mL, Route: 03/07/2013 03/07/2013 Completed SUB-Q, Drug form: SOLN, ONCE, Dosing Weight 90, kg, Start date: 03/07/13 19:16:00, Stop date: 03/07/13 19:16:00 erythromycin 250 mg oral 1 cap, PO, Q12H, 14 cap, 03/09/2013 Ordered enteric coated tablet Substitution Allowed, ECTAB NS (Bolus) IV 1,000 mL 1,000 mL, Rate: 1,000 ml/hr, Infuse over: 1 hr, Route: IV, Dosing Weight 90 kg, Total Volume: 1,000, Priority: STAT, Start date: 21:27:00, Duration: 1 doses or times, Stop date: 03/06/13 22:26:00, Bolus Dose 03/06/2013 03/06/2013 Completed Bolus Dose NS 1,000 mL 1,000 mL, Rate: 125 03/07/2013 03/09/2013 Discontinued ml/hr, Infuse over: 8 hr, Route: IV, Dosing Weight 90 kg, Total Volume: 1,000, Start date: 03/07/13 12:19:00, Duration: 30 day, Stop date: 04/06/13 12:18:00 morphine Sulfate 4 mg, 1 mL, Route: IVP, 03/06/2013 03/06/2013 Completed Drug form: INJ, ONCE, Dosing Weight 90, kg, Start date: 03/06/13 21:27:00, Stop date: 03/06/13 21:27:00 Phenergan 12.5 mg, 0.5 mL, Route: 03/06/2013 03/06/2013 Completed IVPB, Drug form: INJ, ONCE, Dosing Weight 90, kg, Priority: STAT, Start date: 03/06/13 21:26:00, Stop date: 03/06/13 21:26:00 Dextrose 50% Syringe 12.5 gm, 25 mL, Route: 03/07/2013 03/07/2013 Discontinued IVP, Drug Form: INJ, Dosing Weight 90, kg, PRN, PRN Blood Glucose Results, Start date: 03/07/13 5:13:00, Duration: 30 day, Stop date: 04/06/13 5:12:00 Dextrose 50% Syringe 25 gm, 50 mL, Route: 03/07/2013 03/07/2013 Discontinued IVP, Drug Form: INJ, Dosing Weight 90, kg, PRN, PRN Blood Glucose Results, Start date: 03/07/13 5:13:00, Duration: 30 day, Stop date: 04/06/13 5:12:00 Insulin regular 100 unit + 99 mL, Rate: Start Insulin Drip Per ICU Protocol, Dosing Weight 90, kg, Route: IVPB, Total Volume: 100, Duration: 30 day, Stop date: 04/06/13 5:14:00, Replace Every: 24 hr, Initial Insulin Drip Rate (un 10/201203/07/2013 Discontinued Sodium Chloride 0.9% its/hour)=(Fasting Blood Glucose-60)X0.03 "multip... (titrate) 99 mL Initial Insulin Drip Rate (units/hour)=(Fasting Blood Glucose- 60)X0.03 "multiplier". NovoLog 6 unit, SUB-Q, 03/07/2013 03/09/2013 Discontinued TID-Before Meals, Substitution Allowed Levemir 12 unit, SUB-Q, BID, 03/07/2013 Ordered Substitution Allowed acetaminophen-hydrocodone 1 tab, Route: PO, Drug 03/07/2013 03/09/2013 Discontinued 325 mg-10 mg oral tablet Form: TAB, Dosing Weight 90, kg, Q4H, PRN Pain Score 4-6, Start date: 03/07/13 11:51:00, Duration: 30 day, Stop date: 04/06/13 11:50:00 acetaminophen-hydrocodone 1 tab, Route: PO, Drug 03/07/2013 03/09/2013 Discontinued 325 mg-5 mg oral tablet Form: TAB, Dosing Weight 90, kg, Q4H, PRN Pain Score 1-3, Start date: 03/07/13 11:51:00, Duration: 30 day, Stop date: 04/06/13 11:50:00 acetaminophen 650 mg, 2 tab, Route: 03/07/2013 03/09/2013 Discontinued PO, Drug form: TAB, Q4H, Dosing Weight 90, kg, PRN Pain 1-3/Temp > 100.4 F, Start date: 03/07/13 11:51:00, Duration: 30 day, Stop date: 04/06/13 11:50:00 morphine Sulfate 2 mg, 1 mL, Route: IVP, 03/07/2013 03/09/2013 Discontinued Drug form: INJ, Q4H, Dosing Weight 90, kg, PRN Pain Score 7-10, Start date: 03/07/13 11:51:00, Duration: 30 day, Stop date: 04/06/13 11:50:00 docusate 100 mg, 1 cap, Route: 03/07/2013 03/09/2013 Discontinued PO, Drug form: CAP, BID, Dosing Weight 90, kg, PRN Constipation, Start date: 03/07/13 11:51:00, Duration: 30 day, Stop date: 04/06/13 11:50:00 Zocor 40 mg, 1 tab, Route: PO, 03/07/2013 03/09/2013 Discontinued Drug form: TAB, Bedtime, Dosing Weight 90, kg, Start date: 03/07/13 21:00:00, Duration: 30 day, Stop date: 04/05/13 21:00:00 droperidol 1.25 mg, Route: IVP, 03/07/2013 03/07/2013 Discontinued ONCE, Dosing Weight 90, kg, PRN Nausea & Vomiting, Start date: 03/07/13 0:48:00 NS 1,000 mL 1,000 mL, Rate: 125 03/06/2013 03/07/2013 Discontinued ml/hr, Infuse over: 8 hr, Route: IV, Dosing Weight 90 kg, Total Volume: 1,000, Start date: 03/06/13 23:21:00, Duration: 30 day, Stop date: 04/05/13 23:20:00 NS (Bolus) IV 1,000 mL 1,000 mL, Rate: 1,000 ml/hr, Infuse over: 1 hr, Route: IV, Dosing Weight 90 kg, Total Volume: 1,000, Priority: STAT, Start date: 23:21:00, Duration: 1 doses or times, Stop date: 03/07/13 0:20:00, Bolus Dose 03/06/2013 03/07/2013 Completed Bolus Dose Effient 10 mg, 1 tab, Route: PO, 03/07/2013 03/09/2013 Discontinued Drug form: TAB, Daily, Dosing Weight 90, kg, Start date: 03/07/13 13:30:00, Duration: 30 day, Stop date: 04/06/13 9:00:00 Lyrica 150 mg, 2 cap, Route: 03/07/2013 03/09/2013 Discontinued PO, Drug form: CAP, BID, Dosing Weight 90, kg, Start date: 03/07/13 17:00:00, Duration: 30 day, Stop date: 04/06/13 9:00:00 Protonix 40 mg, 1 tab, Route: PO, 03/07/2013 03/09/2013 Discontinued Drug form: ECTAB, BID, Dosing Weight 90, kg, Start date: 03/07/13 17:00:00, Duration: 30 day, Stop date: 04/06/13 9:00:00 Reglan 5 mg, 1 tab, Route: PO, 03/07/2013 03/09/2013 Discontinued Drug form: TAB, TID, Dosing Weight 90, kg, Start date: 03/07/13 13:00:00, Duration: 30 day, Stop date: 04/06/13 9:00:00 magnesium oxide 400 mg, 1 tab, Route: 03/07/2013 03/09/2013 Discontinued PO, Drug form: TAB, Daily, Dosing Weight 90, kg, Start date: 03/07/13 13:30:00, Duration: 30 day, Stop date: 04/06/13 9:00:00 meloxicam 7.5 mg, 1 tab, Route: 03/07/2013 03/09/2013 Discontinued PO, Drug form: TAB, BID-Meals, Dosing Weight 90, kg, Start date: 03/07/13 17:00:00, Duration: 30 day, Stop date: 04/06/13 8:00:00 NovoLog FlexPen 6 unit, 0.06 mL, Route: 03/07/2013 03/09/2013 Discontinued SUB-Q, Drug form: SOLN, TID-Before Meals, Start date: 03/07/13 16:30:00, Duration: 30 day, Stop date: 04/06/13 11:30:00 lisinopril 20 mg, 1 tab, Route: PO, 03/07/2013 03/09/2013 Discontinued Drug form: TAB, Daily, Dosing Weight 90, kg, Start date: 03/07/13 13:30:00, Duration: 30 day, Stop date: 04/06/13 9:00:00 Cymbalta 120 mg, 2 cap, Route: 03/07/2013 03/09/2013 Discontinued PO, Drug form: DRC, Bedtime, Dosing Weight 90, kg, Start date: 03/07/13 21:00:00, Duration: 30 day, Stop date: 04/05/13 21:00:00 ferrous sulfate 325 mg, 1 tab, Route: 03/07/2013 03/09/2013 Discontinued PO, Drug form: ECTAB, TID, Dosing Weight 90, kg, Start date: 03/07/13 13:00:00, Duration: 30 day, Stop date: 04/06/13 9:00:00 insulin aspart 2 unit, 0.02 mL, Route: 03/07/2013 03/09/2013 Discontinued SUB-Q, Drug form: SOLN, TID-Before Meals, Dosing Weight 90, kg, PRN Blood Glucose Results, Start date: 03/07/13 11:55:00, Duration: 30 day, Stop date: 04/06/13 11:54:00 insulin aspart 8 unit, 0.08 mL, Route: 03/07/2013 03/09/2013 Discontinued SUB-Q, Drug form: SOLN, TID-Before Meals, Dosing Weight 90, kg, PRN Blood Glucose Results, Start date: 03/07/13 11:55:00, Duration: 30 day, Stop date: 04/06/13 11:54:00 insulin aspart 10 unit, 0.1 mL, Route: 03/07/2013 03/09/2013 Discontinued SUB-Q, Drug form: SOLN, TID-Before Meals, Dosing Weight 90, kg, PRN Blood Glucose Results, Start date: 03/07/13 11:55:00, Duration: 30 day, Stop date: 04/06/13 11:54:00 insulin aspart 6 unit, 0.06 mL, Route: 03/07/2013 03/09/2013 Discontinued SUB-Q, Drug form: SOLN, TID-Before Meals, Dosing Weight 90, kg, PRN Blood Glucose Results, Start date: 03/07/13 11:55:00, Duration: 30 day, Stop date: 04/06/13 11:54:00 insulin aspart 4 unit, 0.04 mL, Route: 03/07/2013 03/09/2013 Discontinued SUB-Q, Drug form: SOLN, TID-Before Meals, Dosing Weight 90, kg, PRN Blood Glucose Results, Start date: 03/07/13 11:55:00, Duration: 30 day, Stop date: 04/06/13 11:54:00 insulin aspart 2 unit, 0.02 mL, Route: 03/07/2013 03/09/2013 Discontinued SUB-Q, Drug form: SOLN, Bedtime, Dosing Weight 90, kg, PRN Blood Glucose Results, Start date: 03/07/13 11:55:00, Duration: 30 day, Stop date: 04/06/13 11:54:00 insulin aspart 3 unit, 0.03 mL, Route: 03/07/2013 03/09/2013 Discontinued SUB-Q, Drug form: SOLN, Bedtime, Dosing Weight 90, kg, PRN Blood Glucose Results, Start date: 03/07/13 11:55:00, Duration: 30 day, Stop date: 04/06/13 11:54:00 glucagon 1 mg, Route: IM, Drug 03/07/2013 03/09/2013 Discontinued form: PDR/INJ, PRN, Dosing Weight 90, kg, PRN Blood Glucose Results, Start date: 03/07/13 11:55:00, Duration: 30 day, Stop date: 04/06/13 11:54:00 insulin aspart 1 unit, 0.01 mL, Route: 03/07/2013 03/09/2013 Discontinued SUB-Q, Drug form: SOLN, Bedtime, Dosing Weight 90, kg, PRN Blood Glucose Results, Start date: 03/07/13 11:55:00, Duration: 30 day, Stop date: 04/06/13 11:54:00 Dextrose 50% Syringe 12.5 gm, 25 mL, Route: 03/07/2013 03/09/2013 Discontinued IVP, Drug Form: INJ, Dosing Weight 90, kg, PRN, PRN Blood Glucose Results, Start date: 03/07/13 11:55:00, Duration: 30 day, Stop date: 04/06/13 11:54:00 Dextrose 50% Syringe 25 gm, 50 mL, Route: 03/07/2013 03/09/2013 Discontinued IVP, Drug Form: INJ, Dosing Weight 90, kg, PRN, PRN Blood Glucose Results, Start date: 03/07/13 11:55:00, Duration: 30 day, Stop date: 04/06/13 11:54:00 insulin aspart 4 unit, 0.04 mL, Route: 03/07/2013 03/09/2013 Discontinued SUB-Q, Drug form: SOLN, Bedtime, Dosing Weight 90, kg, PRN Blood Glucose Results, Start date: 03/07/13 11:55:00, Duration: 30 day, Stop date: 04/06/13 11:54:00 Humalog 6 unit, Route: SUB-Q, 03/07/2013 03/07/2013 Deleted TID-Before Meals, Dosing Weight 90, kg, Start date: 03/07/13 16:30:00, Duration: 30 day, Stop date: 04/06/13 11:30:00 erythromycin 250 mg oral 250 mg, 1 cap, Route: 03/08/2013 03/09/2013 Discontinued enteric coated tablet PO, Drug form: ECCAP, Q12H, Dosing Weight 90, kg, Start date: 03/08/13 12:00:00, Duration: 30 day, Stop date: 04/07/13 9:00:00 Insulin regular 4 unit, 0.04 mL, Route: 03/07/2013 03/07/2013 Discontinued SUB-Q, Drug form: SOLN, Sliding Scale, Dosing Weight 90, kg, PRN Blood Glucose Results, Start date: 03/07/13 0:01:00, Duration: 30 day, Stop date: 04/06/13 0:00:00 Insulin regular 3 unit, 0.03 mL, Route: 03/07/2013 03/07/2013 Discontinued SUB-Q, Drug form: SOLN, Sliding Scale, Dosing Weight 90, kg, PRN Blood Glucose Results, Start date: 03/07/13 0:01:00, Duration: 30 day, Stop date: 04/06/13 0:00:00 Insulin regular 2 unit, 0.02 mL, Route: 03/07/2013 03/07/2013 Discontinued SUB-Q, Drug form: SOLN, Sliding Scale, Dosing Weight 90, kg, PRN Blood Glucose Results, Start date: 03/07/13 0:01:00, Duration: 30 day, Stop date: 04/06/13 0:00:00 Insulin regular 1 unit, 0.01 mL, Route: 03/07/2013 03/07/2013 Discontinued SUB-Q, Drug form: SOLN, Sliding Scale, Dosing Weight 90, kg, PRN Blood Glucose Results, Start date: 03/07/13 0:01:00, Duration: 30 day, Stop date: 04/06/13 0:00:00 Insulin regular 5 unit, 0.05 mL, Route: 03/07/2013 03/07/2013 Discontinued SUB-Q, Drug form: SOLN, Sliding Scale, Dosing Weight 90, kg, PRN Blood Glucose Results, Start date: 03/07/13 0:01:00, Duration: 30 day, Stop date: 04/06/13 0:00:00 glucagon 1 mg, Route: IM, Drug 03/07/2013 03/07/2013 Discontinued form: PDR/INJ, PRN, Dosing Weight 90, kg, PRN Blood Glucose Results, Start date: 03/07/13 0:01:00, Duration: 30 day, Stop date: 04/06/13 0:00:00 Dextrose 50% Syringe 25 gm, 50 mL, Route: 03/07/2013 03/07/2013 Discontinued IVP, Drug Form: INJ, Dosing Weight 90, kg, PRN, PRN Blood Glucose Results, Start date: 03/07/13 0:01:00, Duration: 30 day, Stop date: 04/06/13 0:00:00 Dextrose 50% Syringe 12.5 gm, 25 mL, Route: 03/07/2013 03/07/2013 Discontinued IVP, Drug Form: INJ, Dosing Weight 90, kg, PRN, PRN Blood Glucose Results, Start date: 03/07/13 0:01:00, Duration: 30 day, Stop date: 04/06/13 0:00:00 Flexeril 10 mg, 1 tab, Route: PO, 03/07/2013 03/09/2013 Discontinued Drug form: TAB, BID, Dosing Weight 90, kg, Start date: 03/07/13 17:00:00, Duration: 30 day, Stop date: 04/06/13 9:00:00 clonazepam 0.5 mg, 1 tab, Route: 03/07/2013 03/09/2013 Discontinued PO, Drug form: TAB, TID, Dosing Weight 90, kg, Start date: 03/07/13 13:00:00, Duration: 30 day, Stop date: 04/06/13 9:00:00 Levemir 12 unit, 0.12 mL, Route: 03/07/2013 03/09/2013 Discontinued SUB-Q, Drug form: INJ, Q12H, Dosing Weight 90, kg, Start date: 03/07/13 21:00:00, Duration: 30 day, Stop date: 04/06/13 9:00:00 GI cocktail 30 ml, Route: PO, Drug 03/08/2013 03/08/2013 Completed Form: SUSP, Dosing Weight 90, kg, ONCE, Routine, Start date: 03/08/13 16:26:00, Stop date: 03/08/13 16:26:00 magnesium sulfate 2 gm, 50 mL, Route: IVPB, Drug form: INJ, Q2H, Dosing Weight 90, kg, Total Dose=4 gm, Start date: 03/08/13 12:00:00, Duration: 2 doses or times, Stop date: 03/08/13 14:00:00, For Mg=1.5 - 1.7 mg/dL 201203/08/2013 Completed For Mg=1.5 - 1.7 mg/dL Phenergan 12.5 mg, 0.5 mL, Route: 03/07/2013 03/09/2013 Discontinued IVPB, Drug form: INJ, Q4H, Dosing Weight 90, kg, PRN Nausea & Vomiting, Start date: 03/07/13 11:53:00, Duration: 30 day, Stop date: 04/06/13 11:52:00 albuterol 0.083% 2.49 mg, 3 mL, Route: 03/07/2013 03/09/2013 Discontinued inhalation solution NEB, Drug form: SOLN, RQ4H, Dosing Weight 90, kg, PRN as needed for wheezing, Start date: 03/07/13 11:53:00, Duration: 30 day, Stop date: 04/06/13 11:52:00 Zofran 4 mg, 2 mL, Route: IVP, 03/07/2013 03/09/2013 Discontinued Drug form: INJ, Q4H, Dosing Weight 90, kg, PRN Nausea, Start date: 03/07/13 11:53:00, Duration: 30 day, Stop date: 04/06/13 11:52:00 insulin aspart 5 unit, 0.05 mL, Route: 03/08/2013 03/08/2013 Completed SUB-Q, Drug form: SOLN, ONCE, Dosing Weight 90, kg, Start date: 03/08/13 3:17:00, Stop date: 03/08/13 3:17:00 lidocaine-epi 1%-[id number] 1 ml, Route: SUB-Q, Drug 03/07/2013 03/07/2013 Completed Form: SOLN, Dosing Weight 90, kg, ONCE, STAT, Start date: 03/07/13 5:18:00, Stop date: 03/07/13 5:18:00 heparin 5,000 unit, 1 mL, Route: 03/07/2013 03/09/2013 Discontinued SUB-Q, Drug form: INJ, Q8H, Dosing Weight 90, kg, Start date: 03/07/13 16:00:00, Duration: 30 day, Stop date: 04/06/13 8:00:00 D5W 1/2NS 1,000 mL 1,000 mL, Rate: 125 03/07/2013 03/07/2013 Discontinued ml/hr, Infuse over: 8 hr, Route: IV, Dosing Weight 90 kg, Total Volume: 1,000, Start date: 03/07/13 0:43:00, Duration: 30 day, Stop date: 04/06/13 0:42:00 NS (Bolus) IV 1,000 mL 1,000 mL, Rate: 1,000 ml/hr, Infuse over: 1 hr, Route: IV, Dosing Weight 90 kg, Total Volume: 1,000, Priority: STAT, Start date: 2:36:00, Duration: 1 doses or times, Stop date: 03/07/13 3:35:00, Bolus Dose 03/07/2013 03/07/2013 Completed Bolus Dose magnesium sulfate 2 gm, 50 mL, Route: 03/07/2013 03/07/2013 Completed IVPB, Drug form: INJ, ONCE, Dosing Weight 90, kg, Start date: 03/07/13 2:35:00, Stop date: 03/07/13 2:35:00 [place] 5/325 oral tablet 1 tab, PO, Q6H, PRN, 30 03/06/2013 03/07/2013 Discontinued tab, Substitution Allowed, Maintenance Insulin regular 10 unit, 0.1 mL, Route: 03/07/2013 03/07/2013 Completed SUB-Q, Drug form: SOLN, ONCE, Dosing Weight 90, kg, Priority: STAT, Start date: 03/07/13 2:16:00, Stop date: 03/07/13 2:16:00 Reglan 10 mg, 2 mL, Route: IVP, 03/07/2013 03/07/2013 Completed Drug form: INJ, ONCE, Dosing Weight 90, kg, Priority: STAT, Start date: 03/07/13 2:16:00, Stop date: 03/07/13 2:16:00 NS 1,000 mL 1,000 mL, Rate: 150 03/07/2013 03/07/2013 Discontinued ml/hr, Infuse over: 6.7 hr, Route: IV, Dosing Weight 90 kg, Total Volume: 1,000, Start date: 03/07/13 2:15:00, Duration: 30 day, Stop date: 04/06/13 2:14:00 ferrous sulfate 325 mg 325 mg, 1 tab, PO, TID, 03/06/2013 Ordered oral enteric coated tablet 30 tab, Substitution Allowed, ECTAB acetaminophen-hydrocodone 1 tab, PO, Q4H, PRN, for 03/06/2013 Ordered 500 mg-7.5 mg oral tablet pain, Substitution Allowed, Maintenance, TAB meloxicam 7.5 mg oral 7.5 mg, 1 tab, PO, BID, WITH FOOD, 30 tab, Substitution Allowed, TAB 03/06/2013 Ordered tablet WITH FOOD Vital Signs Most recent to oldest 1 2 3 [Reference Range]: Height 162.56 cm 162.56 cm (03/07/2013 11:46:00) (03/06/2013 18:15:00) Temperature Oral 97.7 DegF 97.7 DegF 97.5 DegF [96.4-99.1 DegF] (03/09/2013 07:00:00) (03/09/2013 03:38:00) (03/08/2013 23: 47:00) Systolic Blood Pressure 132 mmHg 143 mmHg 153 mmHg [90-140 mmHg] (03/09/2013 07:00:00) *HI* *HI* (03/09/2013 03:38:00) (03/08/2013 23:47:00) Diastolic Blood Pressure 72 mmHg 81 mmHg 70 mmHg [60-90 mmHg] (03/09/2013 07:00:00) (03/09/2013 03:38:00) (03/08/2013 23:47: 00) Respiratory Rate [14-20 20 BRMIN 18 BRMIN 18 BRMIN BRMIN] (03/09/2013 07:00:00) (03/09/2013 03:38:00) (03/08/2013 23:47:00) Peripheral Pulse Rate 114 bpm 108 bpm 115 bpm [60-100 bpm] *HI* *HI* *HI* (03/09/2013 07:00:00) (03/09/2013 03:38:00) (03/08/2013 23:47:00) Weight 90 kg 90 kg (03/07/2013 11:46:00) (03/06/2013 18:15:00) Results BEDSIDE GLUCOSE TESTING Most recent to [facility] 1 2 3 [Reference Range]: Gluc POC [place] [70-99 229 mg/dL 1 131 mg/dL 2 155 mg/dL 3 mg/dL] *HI* *HI* *HI* (03/09/2013 07:52:00) (03/08/2013 20:35:00) (03/08/2013 19:42:00) Comment1 Notify RN/MD Notify RN/MD Notify RN/MD *NA* *NA* *NA* (03/09/2013 07:52:00) (03/08/2013 20:35:00) (03/08/2013 19:42:00) 1Interpretive Data: Upper Reportable Limit: 200 mg/dL.2Interpretive Data: Upper Reportable Limit: 200 mg/dL.3Interpretive Data: Upper Reportable Limit: 200 mg/dL.URINALYSIS Most recent to [facility] [Reference Range]: 1 2 3 UA Turbidity [Clear] Clear (03/06/2013 18:25:00) UA Color [Yellow] Yellow *NA* (03/06/2013 18:25:00) UA pH [5.0-8.0] 7.5 (03/06/2013 18:25:00) UA Spec Grav [<=1.030] 1.015 (03/06/2013 18:25:00) UA Glucose [Negative mg/dL] 250 mg/dL *ABN* (03/06/2013 18:25:00) UA Blood [Negative] Negative (03/06/2013 18:25:00) UA Ketones [Negative mg/dL] 40 mg/dL *ABN* (03/06/2013:25:00) UA Protein [Negative] Negative (03/06/2013 18:25:00) UA Urobilinogen [0.1-1.0 EU/dL] 0.2 EU/dL (03/06/2013 18:25:00) UA Bili [Negative] Negative *NA* (03/06/2013 18:25:00) UA Leuk Est [Negative] Trace *ABN* (03/06/2013 18:25:00) UA Nitrite [Negative] Negative (03/06/2013 18:25:00) UA WBC [None Seen /HPF] 0-2 /HPF (03/06/2013 18:25:00) UA RBC [0-2] None Seen (03/06/2013 18:25:00) UA Bacteria [None Seen /HPF] Few /HPF (03/06/2013 18:25:00) UA Sq Epi [Few /LPF] Moderate /LPF *ABN* (03/06/2013 18:25:00) UA Amorph Emily [None Seen /HPF] Occasional /HPF *ABN* (03/06/2013 18:25:00) UA Mucus [None Seen /LPF] Few /LPF (03/06/2013 18:25:00) Micro? Performed (03/06/2013 18:25:00) CHEMISTRY Most recent to oldest 1 2 3 [Reference Range]: Sodium Lvl [135-145 mEq/L] 138 mEq/L 135 mEq/L 134 mEq/L (03/09/2013 01:09:00) (03/08/2013 03:01:00) *LOW* (03/07/2013 07:43:00) Potassium Lvl [3.5-5.1 4.7 mEq/L 3.8 mEq/L 3.6 mEq/L mEq/L] (03/09/2013 01:09:00) (03/08/2013 03:01:00) (03/07/2013 07:43:00) Chloride Lvl [95-109 104 mEq/L 100 mEq/L 99 mEq/L mEq/L] (03/09/2013 01:09:00) (03/08/2013 03:01:00) (03/07/2013 07:43:00) CO2 [24-32 mEq/L] 23 mEq/L 23 mEq/L 27 mEq/L *LOW* *LOW* (03/07/2013 07:43:00) (03/09/2013 01:09:00) (03/08/2013 03:01:00) AGAP [10.0-20.0 mEq/L] 15.7 mEq/L 15.8 mEq/L 11.6 mEq/L (03/09/2013 01:09:00) (03/08/2013 03:01:00) (03/07/2013 07:43:00) Creatinine Lvl [0.5-1.4 0.8 mg/dL 0.8 mg/dL 0.7 mg/dL mg/dL] (03/09/2013 01:09:00) (03/08/2013 03:01:00) (03/07/2013 07:43:00) eGFR 88 mL/min/1.73m2 4 88 mL/min/1.73m2 5 104 mL/min/1.73m2 6 *NA* *NA* *NA* (03/09/2013 01:09:00) (03/08/2013 03:01:00) (03/07/2013 07:43:00) BUN [7-22 mg/dL] 7 mg/dL 6 mg/dL 5 mg/dL (03/09/2013 01:09:00) *LOW* *LOW* (03/08/2013 03:01:00) (03/07/2013 07:43:00) B/C Ratio [6-25] 9 8 (03/09/2013 01:09:00) (03/08/2013 03:01:00) Glucose Lvl [70-99 mg/dL] 192 mg/dL 7 198 mg/dL 8 233 mg/dL 9 *HI* *HI* *HI* (03/09/2013 01:09:00) (03/08/2013 03:01:00) (03/07/2013 07:43:00) Total Protein [6.4-8.4 4.8 g/dL 4.8 g/dL 5.2 g/dL g/dL] *LOW* *LOW* *LOW* (03/09/2013 01:09:00) (03/08/2013 03:01:00) (03/07/2013 16:07:00) Albumin Lvl [3.5-5.0 g/dL] 1.9 g/dL 2.0 g/dL 2.0 g/dL *LOW* *LOW* *LOW* (03/09/2013 01:09:00) (03/08/2013 03:01:00) (03/07/2013 16:07:00) Globulin [2.0-4.0 g/dL] 2.9 g/dL 2.8 g/dL 3.2 g/dL (03/09/2013 01:09:00) (03/08/2013 03:01:00) (03/07/2013 16:07:00) A/G Ratio [0.7-1.6] 0.7 0.7 0.6 (03/09/2013 01:09:00) (03/08/2013 03:01:00) *LOW* (03/07/2013 16:07:00) Calcium Lvl [8.5-10.5 7.4 mg/dL 7.6 mg/dL 7.7 mg/dL mg/dL] *LOW* *LOW* *LOW* (03/09/2013 01:09:00) (03/08/2013 03:01:00) (03/07/2013 07:43:00) Phosphorus [2.5-4.5 mg/dL] 3.1 mg/dL (03/06/2013 22:20:00) Magnesium Lvl [1.8-2.4 1.5 mg/dL 1.6 mg/dL mg/dL] *LOW* *LOW* (03/08/2013 03:01:00) (03/06/2013 22:20:00) ALT [0-65 unit/L] 18 unit/L 16 unit/L 19 unit/L (03/09/2013 01:09:00) (03/08/2013 03:01:00) (03/07/2013 16:07:00) AST [0-37 unit/L] 22 unit/L 10 unit/L 11 unit/L (03/09/2013 01:09:00) (03/08/2013 03:01:00) (03/07/2013 16:07:00) Alk Phos [39-136 unit/L] 162 unit/L 173 unit/L 190 unit/L *HI* *HI* *HI* (03/09/2013 01:09:00) (03/08/2013 03:01:00) (03/07/2013 16:07:00) Bili Total [0.2-1.3 mg/dL] 0.2 mg/dL 0.3 mg/dL 0.6 mg/dL (03/09/2013 01:09:00) (03/08/2013 03:01:00) (03/07/2013 16:07:00) Bili Direct [0.0-0.3 0.3 mg/dL mg/dL] (03/07/2013 16:07:00) Bili Indirect [0.0-1.0 0.3 mg/dL mg/dL] (03/07/2013 16:07:00) Amylase Lvl [25-115 30 unit/L 26 unit/L unit/L] (03/08/2013 03:01:00) (03/07/2013 16:07:00) Lipase Lvl [73-393 unit/L] 54 unit/L 49 unit/L *LOW* *LOW* (03/08/2013 03:01:00) (03/07/2013 16:07:00) Lactic Acid Lvl [0.5-2.2 1.7 mMol/L 2.6 mMol/L mMol/L] (03/07/2013 07:43:41) *HI* (03/06/2013 22:20:01) Total CK [12-191 unit/L] 26 unit/L 21 unit/L 31 unit/L (03/07/2013 16:07:00) (03/07/2013 07:43:00) (03/06/2013 22:20:00) Troponin-I [0.00-0.40 <0.02 ng/mL <0.02 ng/mL <0.02 ng/mL ng/mL] (03/07/2013 16:07:00) (03/07/2013 07:43:00) (03/06/2013 22:20:00) U Preg [Negative] Negative (03/06/2013 18:25:00) pH Art [7.35-7.45] 7.41 (03/07/2013 05:46:07) pCO2 Art [35-45 mmHg] 34 mmHg *LOW* (03/07/2013 05:46:07) pO2 Art [80-100 mmHg] 96 mmHg (03/07/2013 05:46:07) HCO3 Art [22-26 mMol/L] 22 mMol/L (03/07/2013 05:46:07) BE Art [-2-2 mMol/L] -2 mMol/L (03/07/2013 05:46:07) O2 Sat Art [95.0-100.0 %] 97.5 % (03/07/2013 05:46:07) Temp Art 37.0 DegC *NA* (03/07/2013 05:46:07) pH Mark [7.28-7.42] 7.46 *HI* (03/06/2013 22:20:43) pCO2 Mark [38-52 mmHg] 29 mmHg *LOW* (03/06/2013 22:20:43) pO2 Mark [20-49 mmHg] 20 mmHg (03/06/2013 22:20:43) HCO3 Mark [22-26 mMol/L] 21 mMol/L *LOW* (03/06/2013 22:20:43) BE Mark [-2-2 mMol/L] -2 mMol/L (03/06/2013 22:20:43) O2 Sat Mark [40.0-70.0 %] 36.2 % *LOW* (03/06/2013 22:20:43) Temp Mark 37.0 DegC *NA* (03/06/2013 22:20:43) 4Result Comment: The eGFR is calculated using [...] values reflect the clinical guidelines of the [place] [employer].8Interpretive Data: Adult reference range values reflect the clinical guidelines of the [place] [employer].9Interpretive Data: Adult reference range values reflect the clinical guidelines of the [place] [employer].HEMATOLOGY Most recent to oldest 1 2 3 [Reference Range]: WBC [3.7-10.4 K/CMM] 7.4 K/CMM 8.8 K/CMM 11.1 K/CMM (03/09/2013 01:09:00) (03/08/2013 03:01:00) *HI* (03/07/2013 07:43:59) RBC [4.20-5.40 M/CMM] 3.14 M/CMM 3.12 M/CMM 3.56 M/CMM *LOW* *LOW* *LOW* (03/09/2013 01:09:00) (03/08/2013 03:01:00) (03/07/2013 07:43:59) Hgb [12.0-16.0 g/dL] 7.8 g/dL 7.9 g/dL 8.8 g/dL *LOW* *LOW* *LOW* (03/09/2013 01:09:00) (03/08/2013 03:01:00) (03/07/2013 07:43:59) Hct [36.0-48.0 %] 24.9 % 24.9 % 26.9 % *LOW* *LOW* *LOW* (03/09/2013 01:09:00) (03/08/2013 03:01:00) (03/07/2013 07:43:59) MCV [81.0-99.0 fL] 79.3 fL 79.7 fL 75.7 fL *LOW* *LOW* *LOW* (03/09/2013 01:09:00) (03/08/2013 03:01:00) (03/07/2013 07:43:59) MCH [27.0-31.0 pg] 24.7 pg 25.3 pg 24.7 pg *LOW* *LOW* *LOW* (03/09/2013 01:09:00) (03/08/2013 03:01:00) (03/07/2013 07:43:59) MCHC [32.0-36.0 g/dL] 31.2 g/dL 31.8 g/dL 32.6 g/dL *LOW* *LOW* (03/07/2013 07:43:59) (03/09/2013 01:09:00) (03/08/2013 03:01:00) RDW [11.5-14.5 %] 20.7 % 21.4 % 20.1 % *HI* *HI* *HI* (03/09/2013 01:09:00) (03/08/2013 03:01:00) (03/07/2013 07:43:59) Platelet [133-450 K/CMM] 304 K/CMM 294 K/CMM 362 K/CMM (03/09/2013 01:09:00) (03/08/2013 03:01:00) (03/07/2013 07:43:59) MPV [7.4-10.4 fL] 8.0 fL 8.0 fL 8.3 fL (03/09/2013 01:09:00) (03/08/2013 03:01:00) (03/07/2013 07:43:59) Segs [45.0-75.0 %] 62.8 % 53.3 % 67.8 % (03/09/2013 01:09:00) (03/08/2013 03:01:00) (03/07/2013 07:43:59) Lymphocytes [20.0-40.0 %] 26.4 % 34.2 % 22.0 % (03/09/2013 01:09:00) (03/08/2013 03:01:00) (03/07/2013 07:43:59) Monocytes [2.0-12.0 %] 7.9 % 9.0 % 8.1 % (03/09/2013 01:09:00) (03/08/2013 03:01:00) (03/07/2013 07:43:59) Eosinophils [0.0-4.0 %] 1.9 % 2.6 % 1.3 % (03/09/2013 01:09:00) (03/08/2013 03:01:00) (03/07/2013 07:43:59) Basophils [0.0-1.0 %] 1.0 % 0.9 % 0.8 % (03/09/2013 01:09:00) (03/08/2013 03:01:00) (03/07/2013 07:43:59) Segs-Bands # [1.5-8.1 4.6 K/CMM 4.7 K/CMM 7.6 K/CMM K/CMM] (03/09/2013 01:09:00) (03/08/2013 03:01:00) (03/07/2013 07:43:59) Lymphocytes # [1.0-5.5 2.0 K/CMM 3.0 K/CMM 2.4 K/CMM K/CMM] (03/09/2013 01:09:00) (03/08/2013 03:01:00) (03/07/2013 07:43:59) Monocytes # [0.0-0.8 K/CMM] 0.6 K/CMM 0.8 K/CMM 0.9 K/CMM (03/09/2013 01:09:00) (03/08/2013 03:01:00) *HI* (03/07/2013 07:43:59) Eosinophils # [0.0-0.5 0.1 K/CMM 0.2 K/CMM 0.1 K/CMM K/CMM] (03/09/2013 01:09:00) (03/08/2013 03:01:00) (03/07/2013 07:43:59) Basophils # [0.0-0.2 K/CMM] 0.1 K/CMM 0.1 K/CMM 0.1 K/CMM (03/09/2013 01:09:00) (03/08/2013 03:01:00) (03/07/2013 07:43:59) Anisocyte [None Seen] 1+ 1+ 1+ *ABN* *ABN* *ABN* (03/09/2013 01:09:00) (03/08/2013 03:01:00) (03/07/2013 07:43:59) Polychrom [None Seen] Slight (03/07/2013 07:43:59) Hypochrom [None Seen] Slight (03/07/2013 07:43:59) Microcyte [None Seen] 1+ 2+ *ABN* *ABN* (03/08/2013 03:01:00) (03/07/2013 07:43:59) Target Cell [None Seen] Slight *ABN* (03/07/2013 07:43:59) Plt Morph Normal (03/07/2013 07:43:59) Procedures Procedures Date Related Diagnosis Rotator cuff repair
--- OUTSIDE RECORDS SUMMARY | 2018-02-13 16:12 | XMS REPORT | CCD ---
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 Medications Medication Instructions Start Date End Date Status Sodium Chloride 0.9% 1,000 mL, Rate: 1,000 ml/hr, Infuse over: 1 hr, Route: IV , Dosing Weight 81.818 kg, Total Volume: 1,000, Priority: STAT, Start date: 04/18 11:52:00, Duration: 1 doses or times, Stop date: 08/13/13 12:51:00, Bolus Dose 08/13/2013 08/13/2013 Completed (Bolus) IV 1,000 mL Bolus Dose Zofran 4 mg oral tablet 4 mg=1 tab, PO, BID, # 10 08/13/2013 Ordered tab, 0 Refill(s) Reglan 10 mg oral tablet 10 mg=1 tab, PO, QID, # 40 08/13/2013 08/23/2013 Ordered tab, 0 Refill(s) Phenergan 25 mg, 1 mL, Route: IVPB, 08/13/2013 08/13/2013 Completed Drug form: INJ, ONCE, Dosing Weight 81.818, kg, Priority: STAT, Start date: 08/13/13 13:17:00, Stop date: 08/13/13 13:17:00Do not give IV push. (Same as: Phenergan) pneumococcal 23-valent 0.5 ml, Route: IM, Drug 07/13/2013 07/14/2013 Completed vaccine Form: INJ, Start date: 07/13/13 9:00:00, Stop date: 07/13/13 9:00:00 influenza virus vaccine, 0.5 ml, Route: IM, Drug 07/13/2013 07/14/2013 Completed inactivated Form: SUSP, Start date: 07/13/13 9:00:00, Stop date: 07/13/13 9:00:00 IDS med 5 mg, 1 mL, Rate: 30 08/13/2013 08/13/2013 Completed ml/hr, Infuse over: 2 minutes, Route: IV, Total Volume: 1, Stop date: 08/13/13 16:00:00 Zofran 4 mg, 2 mL, Route: IVP, 08/13/2013 08/13/2013 Completed Drug form: INJ, ONCE, Dosing Weight 81.818, kg, Priority: STAT, Start date: 08/13/13 12:41:00, Stop date: 08/13/13 12:41:00(Same as: Zofran) morphine Sulfate 4 mg, 1 mL, Route: IVP, 08/13/2013 08/13/2013 Completed Drug form: INJ, ONCE, Dosing Weight 81.818, kg, Priority: STAT, Start date: 08/13/13 12:40:00, Stop date: 08/13/13 12:40:00(Same as:MORPhine Sulfate) NS (Bolus) IV 1,000 mL 1,000 mL, Rate: 1,000 ml/hr, Infuse over: 1 hr, Route: IV, Dosing Weight 81.818 kg, Total Volume: 1,000, Priority: STAT, Start date: 13:56:00, Duration: 1 doses or times, Stop date: 08/13/13 14:55:00, Bolus Dose 08/13/2013 08/13/2013 Completed Bolus Dose Immunizations Vaccine Date Status influenza virus vaccine, inactivated 07/14/2013 Auth (Verified) pneumococcal 23-valent vaccine 07/14/2013 Auth (Verified) Vital Signs Most recent to oldest 1 2 3 [Reference Range]: Height 162.56 cm (08/13/2013 11:45:00) Temperature Oral 98.8 DegF 98.4 DegF [96.4-99.1 DegF] (08/13/2013 17:20:00) (08/13/2013 11:45:00) Systolic Blood Pressure 124 mmHg 107 mmHg 117 mmHg [90-140 mmHg] (08/13/2013 17:20:00) (08/13/2013 15:32:00) (08/13/2013 14:30: 00) Diastolic Blood Pressure 46 mmHg 63 mmHg 70 mmHg [60-90 mmHg] *LOW* (08/13/2013 15:32:00) (08/13/2013 14:30:00) (08/13/2013 17:20:00) Respiratory Rate [14-20 18 BRMIN 18 BRMIN 18 BRMIN BRMIN] (08/13/2013 17:20:00) (08/13/2013 15:32:00) (08/13/2013 14:30:00) Peripheral Pulse Rate 102 bpm 103 bpm 105 bpm [60-100 bpm] *HI* *HI* *HI* (08/13/2013 17:20:00) (08/13/2013 15:32:00) (08/13/2013 14:30:00) Weight 81.818 kg (08/13/2013 11:45:00) Results URINALYSIS Most recent to oldest [Reference Range]: 1 UA Turbidity [Clear] Clear (08/13/2013 13:30:00) UA Color [Yellow] Yellow *NA* (08/13/2013 13:30:00) UA pH [5.0-8.0] 6.0 (08/13/2013 13:30:00) UA Spec Grav [<=1.030] 1.020 (08/13/2013 13:30:00) UA Glucose [Negative mg/dL] 250 mg/dL *ABN* (08/13/2013 13:30:00) UA Blood [Negative] Negative (08/13/2013 13:30:00) UA Ketones [Negative mg/dL] >=80 mg/dL *ABN* (08/13/2013 13:30:00) UA Protein [Negative] Negative (08/13/2013 13:30:00) UA Urobilinogen [0.1-1.0 EU/dL] 0.2 EU/dL (08/13/2013 13:30:00) UA Bili [Negative] Small 1 *ABN* (08/13/2013 13:30:00) UA Leuk Est [Negative] Negative (08/13/2013 13:30:00) UA Nitrite [Negative] Negative (08/13/2013 13:30:00) UA WBC [None Seen /HPF] 3-5 /HPF (08/13/2013 13:30:00) UA RBC [0-2 /HPF] 0-2 /HPF (08/13/2013 13:30:00) UA Sq Epi [Few /LPF] Few /LPF (08/13/2013 13:30:00) UA Hyal Cast [0-2] 0-2 (08/13/2013 13:30:00) Micro? Performed (08/13/2013 13:30:00) 1Result Comment: Interpret positive bilirubin results with caution. Confirmatory testing not possible due to the unavailability of reagent. Correlation with serum chemistry results recommended.CHEMISTRY Most recent to oldest [Reference Range]: 1 Sodium Lvl [135-145 mEq/L] 134 mEq/L *LOW* (08/13/2013 12:20:00) Potassium Lvl [3.5-5.1 mEq/L] 3.8 mEq/L (08/13/2013 12:20:00) Chloride Lvl [95-109 mEq/L] 98 mEq/L (08/13/2013 12:20:00) CO2 [24-32 mEq/L] 25 mEq/L (08/13/2013 12:20:00) AGAP [10.0-20.0 mEq/L] 14.8 mEq/L (08/13/2013 12:20:00) Creatinine Lvl [0.5-1.4 mg/dL] 1.1 mg/dL (08/13/2013 12:20:00) eGFR 60 mL/min/1.73m2 2 *NA* (08/13/2013 12:20:00) BUN [7-22 mg/dL] 9 mg/dL (08/13/2013 12:20:00) B/C Ratio [6-25] 8 (08/13/2013 12:20:00) Glucose Lvl [70-99 mg/dL] 301 mg/dL 3 *HI* (08/13/2013 12:20:00) Total Protein [6.4-8.4 g/dL] 7.8 g/dL (08/13/2013 12:20:00) Albumin Lvl [3.5-5.0 g/dL] 3.5 g/dL (08/13/2013 12:20:00) Globulin [2.0-4.0 g/dL] 4.3 g/dL *HI* (08/13/2013 12:20:00) A/G Ratio [0.7-1.6] 0.8 (08/13/2013 12:20:00) Calcium Lvl [8.5-10.5 mg/dL] 9.1 mg/dL (08/13/2013 12:20:00) ALT [0-65 unit/L] 22 unit/L (08/13/2013 12:20:00) AST [0-37 unit/L] 17 unit/L (08/13/2013 12:20:00) Alk Phos [39-136 unit/L] 130 unit/L (08/13/2013 12:20:00) Bili Total [0.2-1.3 mg/dL] 0.6 mg/dL (08/13/2013 12:20:00) U Preg [Negative] Negative (08/13/2013 13:30:00) pH Mark [7.28-7.42] 7.41 (08/13/2013 12:20:21) pCO2 Mark [38-52 mmHg] 41 mmHg (08/13/2013:20:21) pO2 Mark [20-49 mmHg] 29 mmHg (08/13/2013 12:20:21) HCO3 Mark [22-26 mMol/L] 26 mMol/L (08/13/2013 12:20:21) BE Mark [-2-2 mMol/L] 1 mMol/L (08/13/2013::21) O2 Sat Mark [40.0-70.0 %] 55.9 % (08/13/2013 12:20:21) Temp Mark 37.0 DegC *NA* (08/13/2013:20:21) 2Result Comment: The eGFR is calculated using [...] eGFR should be multiplied by the estimated BMI.3Interpretive Data: Adult reference range values reflect the clinical guidelines of the [place] [employer].HEMATOLOGY Most recent to oldest [Reference Range]: 1 WBC [3.7-10.4 K/CMM] 12.7 K/CMM *HI* (08/13/2013:20:00) RBC [4.20-5.40 M/CMM] 4.36 M/CMM (08/13/2013 12:20:00) Hgb [12.0-16.0 g/dL] 12.6 g/dL (08/13/2013:20:00) Hct [36.0-48.0 %] 37.0 % (08/13/2013:20:00) MCV [81.0-99.0 fL] 84.8 fL (08/13/2013:20:00) MCH [27.0-31.0 pg] 28.8 pg (08/13/2013::00) MCHC [32.0-36.0 g/dL] 34.0 g/dL (08/13/2013 12:20:00) RDW [11.5-14.5 %] 13.1 % (08/13/2013::00) Platelet [133-450 K/CMM] 238 K/CMM (08/13/2013:20:00) MPV [7.4-10.4 fL] 9.5 fL (08/13/2013 12:20:00) Segs [45.0-75.0 %] 82.1 % *HI* (08/13/2013 12:20:00) Lymphocytes [20.0-40.0 %] 11.3 % *LOW* (08/13/2013 12:20:00) Monocytes [2.0-12.0 %] 6.3 % (08/13/2013 12:20:00) Eosinophils [0.0-4.0 %] 0.2 % (08/13/2013 12:20:00) Basophils [0.0-1.0 %] 0.1 % (08/13/2013 12:20:00) Segs-Bands # [1.5-8.1 K/CMM] 10.5 K/CMM *HI* (08/13/2013 12:20:00) Lymphocytes # [1.0-5.5 K/CMM] 1.4 K/CMM (08/13/2013 12:20:00) Monocytes # [0.0-0.8 K/CMM] 0.8 K/CMM (08/13/2013 12:20:00) Eosinophils # [0.0-0.5 K/CMM] 0.0 K/CMM (08/13/2013 12:20:00) Basophils # [0.0-0.2 K/CMM] 0.0 K/CMM (08/13/2013 12:20:00)
--- OUTSIDE RECORDS SUMMARY | 2018-02-13 16:12 | XMS REPORT | CCD ---
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 Medications Medication Instructions Start Date End Date Status acetaminophen-hydrocod 1 tab, Route: PO, Drug Form: 07/12/2013 07/14/2013 Discontinued one 325 mg-5 mg oral TAB, Dosing Weight 86.364, tablet kg, Q4H, PRN Pain, Start date: 07/12/13 18:23:00, Duration: 30 day, Stop date: 08/11/13 18:22:00(Same as: [place] 325/5) Do not exceed 4gm/day of acetaminophen. metoprolol tartrate 50 50 mg, 1 tab, PO, Daily, 180 07/12/2013 07/14/2013 Discontinued mg oral tablet tab, Substitution Allowed, TAB Levemir 10 unit, 0.1 mL, Route: 07/12/2013 07/12/2013 Completed SUB-Q, Drug form: INJ, ONCE, Dosing Weight 86.364, kg, Start date: 07/12/13 4:20:00, Stop date: 07/12/13 4:20:00Same as Levemir "single patient use only" Omnipaque 350mg/ml 100 mL, Route: IVP, Drug Form: SOLN, Dosing Weight 86.364, kg, ONCALL, STAT, Start date: 07/12/13 4:18:00, Duration: 1 doses or times, Dose =2.2ml/kg, Max [id number]=[id number] -- "To be infused by Radiology Staff ONLY" 201207/12/2013 Completed Dose=2.2ml/kg, Max abup=[id number] -- "To be infused by Radiology Staff ONLY"( Same as:Omnipaque 350). Saline Flush 0.9% 5 ml, Route: IVP, Drug Form: 07/12/2013 07/14/2013 Discontinued INJ, Dosing Weight 86.364, kg, PRN, PRN Line Flush, Start date: 07/12/13 18:22:00, Duration: 30 day, Stop date: 08/11/13 18:21:00(Same as: BD Posiflush) ondansetron 4 mg, 2 mL, Route: IVP, Drug 07/12/2013 07/14/2013 Discontinued form: INJ, Q8H, Dosing Weight 86.364, kg, PRN Nausea & Vomiting, Start date: 07/12/13 18:22:00, Duration: 30 day, Stop date: 08/11/13 18:21:00(Same as: Zofran) lisinopril 20 mg, 1 tab, Route: PO, 07/13/2013 07/14/2013 Discontinued Drug form: TAB, Daily, Dosing Weight 86.364, kg, Start date: 07/13/13 9:00:00, Duration: 30 day, Stop date: 08/11/13 9:00:00(Same as: Prinivil, Zestril) pneumococcal 23-valent 0.5 ml, Route: IM, Drug 07/13/2013 07/13/2013 Completed vaccine Form: INJ, Daily, Start date: 07/13/13 9:00:00, Duration: 1 doses or times, Stop date: 07/13/13 9:00:00(Same as: Pneumovax 23) Refrigerate influenza virus 0.5 ml, Route: IM, Drug 07/13/2013 07/13/2013 Completed vaccine, inactivated Form: SUSP, Daily, Start date: 07/13/13 9:00:00, Duration: 1 doses or times, Stop date: 07/13/13 9:00:00(Same as: Fluzone) normal saline 0.9% IV 1,000 mL, Rate: 200 ml/hr, 07/12/2013 07/13/2013 Completed 1,000 mL Infuse over: 5 hr, Route: IV, Dosing Weight 86.364 kg, Total Volume: 1,000, Start date: 07/12/13 21:08:00, Duration: 3 doses or times, Stop date: 07/13/13 12:07:00 aspirin 81 mg tablet, 81 mg, 1 tab, PO, Daily, 0 07/12/2013 Ordered enteric coated tab, Substitution Allowed, ECTAB Klor-Con M20 oral 20 mEq, 1 tab, PO, Daily, 07/12/2013 07/14/2013 Discontinued tablet, extended 180 tab, Substitution release Allowed, ERTAB Zofran 4 mg, 2 mL, Route: IVP, Drug 07/12/2013 07/12/2013 Completed form: INJ, ONCE, Dosing Weight 86.364, kg, Priority: STAT, Start date: 07/12/13 10:20:00, Stop date: 07/12/13 10:20:00(Same as: Zofran) glucagon 1 mg, Route: IM, Drug form: 07/12/2013 07/14/2013 Discontinued PDR/INJ, PRN, Dosing Weight 86.364, kg, PRN Blood Glucose Results, Start date: 07/12/13 18:26:00, Duration: 30 day, Stop date: 08/11/13 18:25:00 Insulin regular 5 unit, 0.05 mL, Route: 07/13/2013 07/14/2013 Discontinued SUB-Q, Drug form: SOLN, TID-Before Meals, Dosing Weight 86.364, kg, Start date: 07/13/13 7:30:00, Duration: 30 day, Stop date: 08/11/13 16:30:00(Same as: Humulin R) Roll in palms of hands gently; Do not shake vigorously. "single patient use only"(Restricted to patients requiring a dose > 60 units) Stable for 28 days at room temperatureExpires in days from Date Dextrose 50% Syringe 12.5 gm, 25 mL, Route: IVP, 07/12/2013 07/14/2013 Discontinued Drug Form: INJ, Dosing Weight 86.364, kg, PRN, PRN Blood Glucose Results, Start date: 07/12/13 18:26:00, Duration: 30 day, Stop date: 08/11/13 18:25:00 Dextrose 50% Syringe 25 gm, 50 mL, Route: IVP, 07/12/2013 07/14/2013 Discontinued Drug Form: INJ, Dosing Weight 86.364, kg, PRN, PRN Blood Glucose Results, Start date: 07/12/13 18:26:00, Duration: 30 day, Stop date: 08/11/13 18:25:00 insulin aspart 4 unit, 0.04 mL, Route: 07/12/2013 07/14/2013 Discontinued SUB-Q, Drug form: SOLN, TID-Before Meals, Dosing Weight 86.364, kg, PRN Blood Glucose Results, Start date: 07/12/13 18:26:00, Duration: 30 day, Stop date: 08/11/13 18:25:00Roll in palms of hands gently; Do not shake vigorously. (Same as: NovoLog)"single patient use only" Stable for 28 days at room temperature.Expires in days from Date insulin aspart 5 unit, 0.05 mL, Route: 07/12/2013 07/14/2013 Discontinued SUB-Q, Drug form: SOLN, TID-Before Meals, Dosing Weight 86.364, kg, PRN Blood Glucose Results, Start date: 07/12/13 18:26:00, Duration: 30 day, Stop date: 08/11/13 18:25:00Roll in palms of hands gently; Do not shake vigorously. (Same as: NovoLog)"single patient use only" Stable for 28 days at room temperature.Expires in days from Date insulin aspart 3 unit, 0.03 mL, Route: 07/12/2013 07/14/2013 Discontinued SUB-Q, Drug form: SOLN, TID-Before Meals, Dosing Weight 86.364, kg, PRN Blood Glucose Results, Start date: 07/12/13 18:26:00, Duration: 30 day, Stop date: 08/11/13 18:25:00Roll in palms of hands gently; Do not shake vigorously. (Same as: NovoLog)"single patient use only" Stable for 28 days at room temperature.Expires in days from Date insulin aspart 1 unit, 0.01 mL, Route: 07/12/2013 07/14/2013 Discontinued SUB-Q, Drug form: SOLN, TID-Before Meals, Dosing Weight 86.364, kg, PRN Blood Glucose Results, Start date: 07/12/13 18:26:00, Duration: 30 day, Stop date: 08/11/13 18:25:00Roll in palms of hands gently; Do not shake vigorously. (Same as: NovoLog)"single patient use only" Stable for 28 days at room temperature.Expires in days from Date insulin aspart 2 unit, 0.02 mL, Route: 07/12/2013 07/14/2013 Discontinued SUB-Q, Drug form: SOLN, TID-Before Meals, Dosing Weight 86.364, kg, PRN Blood Glucose Results, Start date: 07/12/13 18:26:00, Duration: 30 day, Stop date: 08/11/13 18:25:00Roll in palms of hands gently; Do not shake vigorously. (Same as: NovoLog)"single patient use only" Stable for 28 days at room temperature.Expires in days from Date Reglan 10 mg, 2 mL, Route: IVP, 07/13/2013 07/14/2013 Discontinued Drug form: INJ, Q6H, Dosing Weight 86.364, kg, Start date: 07/13/13 0:00:00, Duration: 30 day, Stop date: 08/11/13 18:00:00(Same as: Reglan) metoprolol tartrate 50 mg, Route: PO, Drug form: 07/13/2013 07/12/2013 Discontinued TAB, Daily, Dosing Weight 86.364, kg, Start date: 07/13/13 9:00:00, Duration: 30 day, Stop date: 08/11/13 9:00:00 furosemide 40 mg oral 40 mg, 1 tab, PO, Daily, 30 07/12/2013 07/14/2013 Discontinued tablet tab, Substitution Allowed, TAB Sodium Chloride 0.9% 1,000 mL, Rate: 1,000 ml/hr, Infuse over: 1 hr, Route: IV , Dosing Weight 86.364 kg, Total Volume: 1,000, Priority: STAT, Start date: 02/16 4:06:00, Duration: 1 doses or times, Stop date: 07/12/13 5:05:00, Bolus Dose 07/12/2013 07/12/2013 Completed (Bolus) IV 1,000 mL Bolus Dose benzonatate 100 mg PO, TID, PRN, 1 to 2 tabs, prn, Substitution Allowed 07/12 Ordered oral capsule 1 to 2 tabs Reglan 10 mg oral 10 mg, 1 tab, Route: PO, 07/14/2013 07/14/2013 Discontinued tablet Drug form: TAB, TID-Before Meals, Dosing Weight 86.364, kg, Start date: 07/14/13 11:30:00, Duration: 30 day, Stop date: 08/13/13 7:30:00(Same as: Reglan) Take 30 min before meals Reglan 10 mg, 2 mL, Route: IVP, 07/12/2013 07/12/2013 Completed Drug form: INJ, ONCE, Dosing Weight 86.364, kg, Priority: STAT, Start date: 07/12/13 12:12:00, Stop date: 07/12/13 12:12:00(Same as: Reglan) pneumococcal 23-valent 0.5 ml, Route: IM, Drug 07/13/2013 07/14/2013 Completed vaccine Form: INJ, Start date: 07/13/13 9:00:00, Stop date: 07/13/13 9:00:00 influenza virus 0.5 ml, Route: IM, Drug 07/13/2013 07/14/2013 Completed vaccine, inactivated Form: SUSP, Start date: 07/13/13 9:00:00, Stop date: 07/13/13 9:00:00 normal saline 0.9% IV 1,000 mL, Rate: 500 ml/hr, 07/14/2013 07/14/2013 Completed 1,000 mL Infuse over: 2 hr, Route: IV, Dosing Weight 86.364 kg, Total Volume: 1,000, Start date: 07/14/13 14:02:00, Duration: 4 hr, Stop date: 07/14/13 18:01:00 Sodium Chloride 0.9% 1,000 mL, Rate: 1,000 ml/hr, Infuse over: 1 hr, Route: IV , Dosing Weight 86.364 kg, Total Volume: 1,000, Priority: STAT, Start date: 02/16 3:39:00, Duration: 1 doses or times, Stop date: 07/12/13 4:38:00, Bolus Dose 07/12/2013 07/12/2013 Completed (Bolus) IV 1,000 mL Bolus Dose NS (Bolus) IV 1000 mL 1,000 mL, Rate: 1,000 ml/hr, Infuse over: 1 hr, Route: IV, Dosing Weight 86.364 kg, Total Volume: 1,000, Priority: STAT, Start date: 10:06:00, Duration: 1 doses or times, Stop date: 07/12/13 11:05:00, Bolus Dose 07/12/2013 07/12/2013 Completed Bolus Dose Phenergan 12.5 mg, 0.5 mL, Route: 07/12/2013 07/12/2013 Completed IVPB, Drug form: INJ, ONCE, Dosing Weight 86.364, kg, Priority: STAT, Start date: 07/12/13 3:38:00, Stop date: 07/12/13 3:38:00Do not give IV push. (Same as: Phenergan) GI cocktail 30 mL, Route: PO, Drug Form: 07/12/2013 07/12/2013 Completed SUSP, Dosing Weight 86.364, kg, ONCE, STAT, Start date: 07/12/13 3:37:00, Stop date: 07/12/13 3:37:00G.I. Cocktail=antacid with simethicone 22.5 mL - lidocaine viscous 7.5 mL tramadol 50 mg oral 50 mg, 1 tab, Route: PO, 07/12/2013 07/14/2013 Discontinued tablet Drug form: TAB, Q4H, Dosing Weight 86.364, kg, PRN as needed for pain, Start date: 07/12/13 18:24:00, Duration: 30 day, Stop date: 08/11/13 18:23:00Not to exceed 400mg/day. (Same As: Ultram) Lyrica 150 mg, 2 cap, Route: PO, 07/13/2013 07/14/2013 Discontinued Drug form: CAP, BID, Dosing Weight 86.364, kg, Start date: 07/13/13 9:00:00, Duration: 30 day, Stop date: 08/11/13 17:00:00(Same as: Lyrica) potassium chloride 20 mEq, 1 tab, Route: PO, 07/13/2013 07/14/2013 Discontinued Drug form: ERTAB, Daily, Dosing Weight 86.364, kg, Start date: 07/13/13 9:00:00, Duration: 30 day, Stop date: 08/11/13 9:00:00(Same as: K-Dur 20)"Do Not Crush" With food and full glass of water Effient 10 mg, 1 tab, Route: PO, 07/13/2013 07/14/2013 Discontinued Drug form: TAB, Daily, Dosing Weight 86.364, kg, Start date: 07/13/13 9:00:00, Duration: 30 day, Stop date: 08/11/13 9:00:00Same as Effient For patients < 75 years old, > 60kg, without history of TIA/Ischemic stroke and without likely bypass surgery Protonix 40 mg, 1 tab, Route: PO, 07/13/2013 07/14/2013 Discontinued Drug form: ECTAB, BID-Before Meals, Dosing Weight 86.364, kg, Start date: 07/13/13 9:00:00, Stop date: 08/11/13 16:30:00Tablet should not be chewed or crushed.(Same as: Protonix) metoprolol tartrate 50 mg, 1 tab, Route: PO, 07/12/2013 07/14/2013 Discontinued Drug form: TAB, Q12H, Dosing Weight 86.364, kg, Start date: 07/12/13 21:00:00, Duration: 30 day, Stop date: 08/11/13 9:00:00(Same as: Lopressor) [place] 5/325 oral 1 tab, Route: PO, Dosing 07/12/2013 07/12/2013 Completed tablet Weight 86.364, kg, ONCE, Start date: 07/12/13 10:05:00, Stop date: 07/12/13 10:05:00 meloxicam 7.5 mg, Route: PO, Drug 07/13/2013 07/12/2013 Canceled form: TAB, BID, Dosing Weight 86.364, kg, Start date: 07/13/13 9:00:00, Duration: 30 day, Stop date: 08/11/13 17:00:00 magnesium oxide 400 mg, 1 tab, Route: PO, 07/13/2013 07/14/2013 Discontinued Drug form: TAB, Daily, Dosing Weight 86.364, kg, Start date: 07/13/13 9:00:00, Duration: 30 day, Stop date: 08/11/13 9:00:00(Same as: Mag-Ox 400)Magnesium oxide [id number] elemental magnesiumDose=____mg magnesium oxide (___mg elemental magnesium) Levemir 12 unit, 0.12 mL, Route: 07/12/2013 07/13/2013 Discontinued SUB-Q, Drug form: INJ, BID, Dosing Weight 86.364, kg, Start date: 07/12/13 21:00:00, Duration: 30 day, Stop date: 08/11/13 9:00:00Same as Levemir "single patient use only" Zofran ODT 8 mg, Route: PO, Drug form: 07/12/2013 07/12/2013 Completed TABDIS, ONCE, Dosing Weight 86.364, kg, Priority: STAT, Start date: 07/12/13 6:56:00, Stop date: 07/12/13 6:56:00 morphine Sulfate 4 mg, 1 mL, Route: IVP, Drug 07/12/2013 07/12/2013 Discontinued form: INJ, ONCE, Dosing Weight 86.364, kg, Priority: STAT, Start date: 07/12/13 9:32:00, Stop date: 07/12/13 9:32:00(Same as:MORPhine Sulfate) Levemir 15 unit, 0.15 mL, Route: 07/13/2013 07/14/2013 Discontinued SUB-Q, Drug form: INJ, BID, Dosing Weight 86.364, kg, Start date: 07/13/13 21:00:00, Duration: 30 day, Stop date: 08/12/13 9:00:00Same as Levemir "single patient use only" Zofran 4 mg, Route: IVP, Drug form: 07/12/2013 07/12/2013 Completed INJ, ONCE, Dosing Weight 86.364, kg, Priority: STAT, Start date: 07/12/13 10:52:00, Stop date: 07/12/13 10:52:00 morphine Sulfate 4 mg, Route: IVP, Drug form: 07/12/2013 07/12/2013 Completed INJ, ONCE, Dosing Weight 86.364, kg, Priority: STAT, Start date: 07/12/13 10:51:00, Stop date: 07/12/13 10:51:00 furosemide 40 mg oral 40 mg, 1 tab, Route: PO, 07/13/2013 07/14/2013 Discontinued tablet Drug form: TAB, Daily, Dosing Weight 86.364, kg, Start date: 07/13/13 9:00:00, Duration: 30 day, Stop date: 08/11/13 9:00:00(Same as: Lasix) May cause GI upset. Give with food or milk. ferrous sulfate 325 mg, 1 tab, Route: PO, 07/13/2013 07/14/2013 Discontinued Drug form: ECTAB, TID, Dosing Weight 86.364, kg, Start date: 07/13/13 9:00:00, Duration: 30 day, Stop date: 08/11/13 17:00:00Give with food. "Do Not Crush" Flexeril 10 mg, 1 tab, Route: PO, 07/12/2013 07/14/2013 Discontinued Drug form: TAB, TID, Dosing Weight 86.364, kg, PRN Spasm, Start date: 07/12/13 18:23:00, Duration: 30 day, Stop date: 08/11/13 18:22:00(Same As: Flexeril) Cymbalta 120 mg, 2 cap, Route: PO, 07/12/2013 07/14/2013 Discontinued Drug form: DRC, Bedtime, Dosing Weight 86.364, kg, Start date: 07/12/13 21:00:00, Duration: 30 day, Stop date: 08/10/13 21:00:00Non Formulary Drug(Same as: Cymbalta) (Do Not Crush) benzonatate 100 mg, 1 cap, Route: PO, 07/12/2013 07/14/2013 Discontinued Drug form: CAP, TID, Dosing Weight 86.364, kg, PRN as needed for cough, Start date: 07/12/13 18:23:00, Duration: 30 day, Stop date: 08/11/13 18:22:00(Same As: Oleksandr Francis)"Do Not Crush" clonazepam 0.5 mg, 1 tab, Route: PO, 07/13/2013 07/14/2013 Discontinued Drug form: TAB, TID, Dosing Weight 86.364, kg, Start date: 07/13/13 9:00:00, Duration: 30 day, Stop date: 08/11/13 17:00:00(Same As: Klonopin) ProAir HFA 90 mcg/inh 2 puff, Route: INHALATION, 07/12/2013 07/14/2013 Discontinued inhalation aerosol Drug Form: AERO/A, Dosing with adapter Weight 86.364, kg, QID, PRN Shortness of breath, Start date: 07/12/13 20:09:00, Duration: 30 day, Stop date: 08/11/13 20:08:00Albuterol 90 microgram/inh 8gm HFA Same as: Ventolin, Proventil aspirin 81 mg tablet, 81 mg, 1 tab, Route: PO, 07/12/2013 07/14/2013 Discontinued enteric coated Drug form: ECTAB, Daily, Dosing Weight 86.364, kg, Start date: 07/12/13 20:00:00, Duration: 30 day, Stop date: 08/11/13 9:00:00Do not crush or chew.(Same As: Ecotrin) Immunizations Vaccine Date Status influenza virus vaccine, inactivated 07/14/2013 Auth (Verified) pneumococcal 23-valent vaccine 07/14/2013 Auth (Verified) Vital Signs Most recent to oldest 1 2 3 [Reference Range]: Height 162.56 cm (07/11/2013 18:39:00) Temperature Oral 97.7 DegF 97.5 DegF 97.6 DegF [96.4-99.1 DegF] (07/14/2013 19:36:00) (07/14/2013 04:47:00) (07/13/2013 19: 53:00) Systolic Blood Pressure 117 mmHg 91 mmHg 95 mmHg [90-140 mmHg] (07/14/2013 19:36:00) (07/14/2013 15:06:00) (07/14/2013 12:22: 00) Diastolic Blood Pressure 61 mmHg 46 mmHg 61 mmHg [60-90 mmHg] (07/14/2013 19:36:00) *LOW* (07/14/2013 12:22:00) (07/14/2013 15:06:00) Respiratory Rate [14-20 18 BRMIN 18 BRMIN 18 BRMIN BRMIN] (07/14/2013 19:36:00) (07/14/2013 15:06:00) (07/14/2013 12:22:00) Peripheral Pulse Rate 90 bpm 104 bpm 120 bpm [60-100 bpm] (07/14/2013 19:36:00) *HI* *HI* (07/14/2013 15:06:00) (07/14/2013 12:22:00) Weight 86.364 kg (07/11/2013 18:39:00) Results INFECTIOUS DISEASES Most recent to oldest [Reference Range]: 1 2 3 C difficile DNA [Negative] Negative 1 (07/13/2013 00:00:59) 1Interpretive Data: [employer] Clostridium difficile assay utilizes loop-mediated isothermalDNA amplification (LAMP) technology to detect a 204 bp region of the tcdA gene within the PaLoc genesegment present in all known toxigenic C. difficile strains. The assay utilizes FDA cleared IVD reagents. Performance characteristics have been verified by the [facility] within the [facility]. The [facility] is authorized under the Clinical Laboratory Improvement Amendment of 1988 (CLIA-88) to perform highcomplexity testing.BEDSIDE GLUCOSE TESTING Most recent to oldest 1 2 3 [Reference Range]: Glucose POC [70-99 mg/dL] 146 mg/dL 2 140 mg/dL 3 44 mg/dL 4 *HI* *HI* *LOW* (07/14/2013 19:41:00) (07/14/2013 16:30:00) (07/14/2013 15:55:00) Gluc POC Comment 1 Notify RN/MD Notify RN/MD Notify RN/MD *NA* *NA* *NA* (07/14/2013 19:41:00) (07/14/2013 16:30:00) (07/14/2013 15:55:00) 2Interpretive Data: Upper Reportable Limit: 200 mg/dL.3Interpretive Data: Upper Reportable Limit: 200 mg/dL.4Interpretive Data: Upper Reportable Limit: 200 mg/dL.URINALYSIS Most recent to oldest [Reference Range]: 1 2 3 UA Turbidity [Clear] Clear (07/12/2013 03:00:00) UA Color [Yellow] Yellow *NA* (07/12/2013 03:00:00) UA pH [5.0-8.0] 6.0 (07/12/2013 03:00:00) UA Spec Grav [<=1.030] 1.020 (07/12/2013 03:00:00) UA Glucose [Negative mg/dL] >=1000 mg/dL *ABN* (07/12/2013 03:00:00) UA Blood [Negative] Negative (07/12/2013 03:00:00) UA Ketones [Negative mg/dL] 15 mg/dL *ABN* (07/12/2013 03:00:00) UA Protein [Negative mg/dL] Negative mg/dL (07/12/2013 03:00:00) UA Urobilinogen [0.1-1.0 EU/dL] 0.2 EU/dL (07/12/2013 03:00:00) UA Bili [Negative] Negative *NA* (07/12/2013 03:00:00) UA Leuk Est [Negative] Negative (07/12/2013 03:00:00) UA Nitrite [Negative] Negative (07/12/2013 03:00:00) UA WBC [None Seen /HPF] 3-5 /HPF (07/12/2013 03:00:00) UA RBC [0-2 /HPF] 0-2 /HPF (07/12/2013 03:00:00) UA Bacteria [None Seen /HPF] Few /HPF (07/12/2013 03:00:00) UA Sq Epi [Few /LPF] Many /LPF *ABN* (07/12/2013 03:00:00) UA [place] Yeast [None Seen /HPF] Moderate /HPF *ABN* (07/12/2013 03:00:00) Micro? Performed (07/12/2013 03:00:00) CHEMISTRY Most recent to oldest 1 2 3 [Reference Range]: Sodium Lvl [135-145 mEq/L] 135 mEq/L 141 mEq/L 140 mEq/L (07/13/2013 04:05:00) (07/12/2013 16:29:00) (07/12/2013 09:30:26) Potassium Lvl [3.5-5.1 3.5 mEq/L 3.4 mEq/L 3.4 mEq/L mEq/L] (07/13/2013 04:05:00) *LOW* *LOW* (07/12/2013 16:29:00) (07/12/2013 09:30:26) Chloride Lvl [95-109 95 mEq/L 102 mEq/L 103 mEq/L mEq/L] (07/13/2013 04:05:00) (07/12/2013 16:29:00) (07/12/2013 09:30:26) CO2 [24-32 mEq/L] 27 mEq/L 30 mEq/L 30 mEq/L (07/13/2013 04:05:00) (07/12/2013 16:29:00) (07/12/2013 09:30:26) AGAP [10.0-20.0 mEq/L] 16.5 mEq/L 12.4 mEq/L 10.4 mEq/L (07/13/2013 04:05:00) (07/12/2013 16:29:00) (07/12/2013 09:30:26) Creatinine Lvl [0.5-1.4 0.6 mg/dL 0.8 mg/dL 0.9 mg/dL mg/dL] (07/13/2013 04:05:00) (07/12/2013 16:29:00) (07/12/2013 09:30:26) eGFR 109 mL/min/1.73m2 5 88 mL/min/1.73m2 6 76 mL/min/1.73m2 7 *NA* *NA* *NA* (07/13/2013 04:05:00) (07/12/2013 16:29:10) (07/12/2013 09:30:26) BUN [7-22 mg/dL] 6 mg/dL 6 mg/dL 9 mg/dL *LOW* *LOW* (07/12/2013:30:26) (07/13/2013 04:05:00) (07/12/2013 16:29:00) B/C Ratio [6-25] 11 (07/12/2013 03:30:00) Glucose Lvl [70-99 mg/dL] 322 mg/dL 8 163 mg/dL 9 296 mg/dL 10 *HI* *HI* *HI* (07/13/2013 04:05:00) (07/12/2013 16:29:00) (07/12/2013::) Total Protein [6.4-8.4 8.1 g/dL g/dL] (07/12/2013 03:30:00) Albumin Lvl [3.5-5.0 g/dL] 3.9 g/dL (07/12/2013 03:30:00) Globulin [2.0-4.0 g/dL] 4.2 g/dL *HI* (07/12/2013 03:30:00) A/G Ratio [0.7-1.6] 0.9 (07/12/2013 03:30:00) Calcium Lvl [8.5-10.5 8.6 mg/dL 8.8 mg/dL 8.4 mg/dL mg/dL] (07/13/2013 04:05:00) (07/12/2013 16:29:00) *LOW* (07/12/2013:30:26) ALT [0-65 unit/L] 29 unit/L (07/12/2013 03:30:00) AST [0-37 unit/L] 25 unit/L (07/12/2013 03:30:00) Alk Phos [39-136 unit/L] 119 unit/L (07/12/2013 03:30:00) Bili Total [0.2-1.3 mg/dL] 0.4 mg/dL (07/12/2013 03:30:00) Lipase Lvl [73-393 unit/L] 76 unit/L (07/12/2013 03:30:00) Lactic Acid Lvl [0.5-2.2 1.9 mMol/L mMol/L] (07/12/2013 16:29:32) Troponin-I [0.00-0.40 <0.02 ng/mL <0.02 ng/mL ng/mL] (07/12/2013 16:29:10) (07/12/2013 03:30:00) U Preg [Negative] Negative (07/12/2013 03:00:00) 5Result Comment: The eGFR is calculated using [...] eGFR should be multiplied by the estimated BMI.8Interpretive Data: Adult reference range values reflect the clinical guidelines of the [place] [employer].9Interpretive Data: Adult reference range values reflect the clinical guidelines of the [place] [employer].10Interpretive Data: Adult reference range values reflect the clinical guidelines of the [place] [employer].HEMATOLOGY Most recent to oldest [Reference 1 2 3 Range]: WBC [3.7-10.4 K/CMM] 10.7 K/CMM 12.4 K/CMM *HI* *HI* (07/12/2013 16:29:10) (07/12/2013 03:30:00) RBC [4.20-5.40 M/CMM] 4.84 M/CMM 4.70 M/CMM (07/12/2013 16:29:10) (07/12/2013:30:00) Hgb [12.0-16.0 g/dL] 13.6 g/dL 12.9 g/dL (07/12/2013 16:29:10) (07/12/2013:30:00) Hct [36.0-48.0 %] 41.2 % 39.6 % (07/12/2013 16:29:10) (07/12/2013:30:00) MCV [81.0-99.0 fL] 85.3 fL 84.3 fL (07/12/2013 16:29:10) (07/12/2013:30:00) MCH [27.0-31.0 pg] 28.1 pg 27.4 pg (07/12/2013 16:29:10) (07/12/2013:30:00) MCHC [32.0-36.0 g/dL] 33.0 g/dL 32.4 g/dL (07/12/2013 16:29:10) (07/12/2013 03:30:00) RDW [11.5-14.5 %] 12.7 % 12.7 % (07/12/2013 16:29:10) (07/12/2013 03:30:00) Platelet [133-450 K/CMM] 225 K/CMM 235 K/CMM (07/12/2013 16:29:10) (07/12/2013 03:30:00) MPV [7.4-10.4 fL] 9.4 fL 9.4 fL (07/12/2013 16:29:10) (07/12/2013 03:30:00) Segs [45.0-75.0 %] 59.5 % 76.6 % (07/12/2013 16:29:10) *HI* (07/12/2013 03:30:00) Lymphocytes [20.0-40.0 %] 27.9 % 17.0 % (07/12/2013 16:29:10) *LOW* (07/12/2013 03:30:00) Monocytes [2.0-12.0 %] 9.4 % 4.6 % (07/12/2013 16:29:10) (07/12/2013 03:30:00) Eosinophils [0.0-4.0 %] 2.8 % 1.6 % (07/12/2013 16:29:10) (07/12/2013 03:30:00) Basophils [0.0-1.0 %] 0.4 % 0.2 % (07/12/2013 16:29:10) (07/12/2013 03:30:00) Segs-Bands # [1.5-8.1 K/CMM] 6.4 K/CMM 9.5 K/CMM (07/12/2013 16:29:10) *HI* (07/12/2013 03:30:00) Lymphocytes # [1.0-5.5 K/CMM] 3.0 K/CMM 2.1 K/CMM (07/12/2013 16:29:10) (07/12/2013 03:30:00) Monocytes # [0.0-0.8 K/CMM] 1.0 K/CMM 0.6 K/CMM *HI* (07/12/2013 03:30:00) (07/12/2013 16:29:10) Eosinophils # [0.0-0.5 K/CMM] 0.3 K/CMM 0.2 K/CMM (07/12/2013 16:29:10) (07/12/2013 03:30:00) Basophils # [0.0-0.2 K/CMM] 0.0 K/CMM 0.0 K/CMM (07/12/2013 16:29:10) (07/12/2013 03:30:00) RBC Morph Normal Normal (07/12/2013 16:29:10) (07/12/2013 03:30:00) Hypochrom [None Seen] Slight (07/12/2013 03:30:00) Neut Vac [None Seen] Slight *ABN* (07/12/2013 03:30:00) Plt Morph Normal Normal (07/12/2013 16:29:10) (07/12/2013 03:30:00) IMMUNOLOGY Most recent to oldest [Reference Range]: 1 2 3 [place]-HIV 1/2 Ab [Negative] Negative *NA* (07/14/2013 00:27:00) [place]-Hep C Ab [Negative] Negative *NA* (07/14/2013 00:27:00) CDC-HIV 1/2 Ab [Negative] Negative *NA* (07/12/2013 16:02:06)
--- OUTSIDE RECORDS SUMMARY | 2018-02-13 16:12 | XMS REPORT | CCD ---
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 Medications Medication Instructions Start Date End Date Status pneumococcal 23-valent 0.5 ml, Route: IM, Drug 07/13/2013 07/14/2013 Completed vaccine Form: INJ, Start date: 07/13/13 9:00:00, Stop date: 07/13/13 9:00:00 influenza virus vaccine, 0.5 ml, Route: IM, Drug 07/13/2013 07/14/2013 Completed inactivated Form: SUSP, Start date: 07/13/13 9:00:00, Stop date: 07/13/13 9:00:00 Immunizations Vaccine Date Status influenza virus vaccine, inactivated 07/14/2013 Auth (Verified) pneumococcal 23-valent vaccine 07/14/2013 Auth (Verified) Results BEDSIDE GLUCOSE TESTING Most recent to oldest [Reference Range]: 1 Glucose POC [70-99 mg/dL] 274 mg/dL 1 *HI* (07/26/2013 08:29:00) Gluc POC Comment 1 Notify RN/MD *NA* (07/26/2013 08:29:00) 1Interpretive Data: Upper Reportable Limit: 200 mg/dL.
--- OUTSIDE RECORDS SUMMARY | 2018-02-13 16:13 | XMS REPORT ---
:1965 Author Organization [facility] Address [address] [place] [address] [address] [place] [address] Care Team Providers Name Role Phone MILO [...] (BEAKER) (test 200 mg/dL 70-110 TESTED AT [facility] [address] [facility] [id number]) [facility] [address] [id number] 12:24:00 Test Item Value Reference Range Comments SODIUM (BEAKER) (test kpms=061) 136 meq/L 136-145 POTASSIUM (BEAKER) (test pmdt=307) 5.4 meq/L 3.5-5.1 CHLORIDE (BEAKER) (test fqks=868) 102 meq/L 98-107 CO2 (BEAKER) (test iqru=466) 25 meq/L 22-29 [id number] 12:24:00 Test Item Value Reference Range Comments GLUCOSE RANDOM (BEAKER) (test ffgf=718) 353 mg/dL 70-105 BUN AND [id number] 12:24:00 Test Item Value Reference Range Comments BLOOD UREA NITROGEN 14 mg/dL 7-21 (BEAKER) (test waqt=613) CREATININE (BEAKER) (test 1.08 mg/dL 0.57-1.25 grcr=272) EGFR (BEAKER) (test 53 mL/min/1.73 sq m ESTIMATED GFR IS NOT vtfi=1223) ACCURATE CREATININE CLEARANCE IN PREDICTING GLOMERULAR FILTRATION RATE. ESTIMATED GFR IS NOT APPLICABLE FOR DIALYSIS PATIENTS. POCT-HEMOGLOBIN [id number] 11:43:00 Test Item Value Reference Range Comments POC-HEMOGLOBIN METER 12.1 g/dL 12.0-15.0 TESTED AT [address] ([facility]) (test kiah=7553) [facility] [address] POCT-GLUCOSE [id number] 11:43:00 Test Item Value Reference Range Comments POC-GLUCOSE METER ([facility]) 320 mg/dL 70-110 Verify with Lab draw/TESTED AT (test nyyd=8354) [address] [address]
[2018-02-13 16:33] LABS: Absolute Lymphocytes (CBC) 2.8 K/uL (0.7-4.9); Absolute Monocytes 0.6 K/uL (0.1-1.3); Absolute Neutrophil 4.1 K/uL (1.8-8.0); Basophils % 1.3 % (0-1.3); Eosinophils % 5.7 % (0-4.4); Hematocrit 34.7 % (36.0-45.0); Lymphocytes % 34.8 % (15.3-44.8); MCH 26.9 pg (27.0-35.0); MCV 82.2 fL (80-100); MPV 9.3 fL (7.6-11.3); Monocytes % 7.9 % (3.3-12.3); RBC Red Blood Cell Count 4.21 M/uL (3.86-4.86)
[2018-02-13] MEDS ORDERED: LORAZEPAM 1 MG TABLET ONE (16:36)
[2018-02-13 16:37] LABS: Protime INR 0.91
[2018-02-13 16:39] LABS: Barbiturates NEGATIVE (NEGATIVE); Benzodiazepines NEGATIVE (NEGATIVE); Cocaine NEGATIVE (NEGATIVE); METHAMPHETAM NEGATIVE (NEGATIVE); Opiates NEGATIVE (NEGATIVE); Phencyclidine NEGATIVE (NEGATIVE); THC Cannibis NEGATIVE (NEGATIVE)
[2018-02-13 16:56] LABS: Bicarbonate 24 mEq/L (21-31); Glucose Level 224 mg/dL (65-120); Potassium 4.5 mEq/L (3.6-5.0); Sodium Level 124 mEq/L (135-145)
[2018-02-13 17:02] LABS: ALT/SGPT 19 IU/L (10-60); AST/SGOT 26 IU/L (10-42); Albumin 3.7 g/dL (3.2-5.5); Alkaline Phosphatase 103 IU/L (42-121); BUN Blood Urea Nitrogen 16 mg/dL (6-20); Bilirubin Direct 0.1 mg/dL (0-0.2); Bilirubin Total 0.5 mg/dL (0.3-1.2)
[2018-02-13 17:10] LABS: Alcohol Serum/Plasma < 10 mg/dl
--- NOTE | 2018-02-13 17:16 | EDPHYS ---
Physician Documentation [facility] Name: Ila Pérez Age: 52 yrs Sex: Female : 1965 Arrival Date: 02/13/2018 Time: 15:12 Bed 15 Private MD: Fabián Guerra E ED Physician Russel Sifuentes HPI: 02/13 16:20 This 52 yrs old Female presents to ER via Ambulatory with complaints of pm1 Anxiety. 16:20 The patient presents to the emergency department with anxiety, over a relationship, pm1 Going towards divorce with . Onset: The symptoms/episode began/occurred today. Past psychiatric history: Prior diagnosis: Anxiety, Psychiatric medications include: Patient is out her lorazepam for the past two days. Associated signs and symptoms: Pertinent positives; anxiety, Pertinent negatives: abdominal pain, chest pain, fever, homicidal ideation, shortness of breath, substance abuse, suicide ideation. Severity of symptoms: Pain is currently a 0 / 10. The patient has experienced similar episodes in the past, multiple times. Patient takes lorazepam as needed for anxiety. Patient has been out for the past two days. She got in a public argument with her and feels that she is heading towards a divorce. That triggered her anxiety attack and she has been trying hydroxizine without improvement. She received the hydroxizine from the pharmacist as a bridge towards a refill for her lorazepam . 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 LMP N/A - iw Historical: - Allergies: 15:44 Gluten Protein; aj1 - Home Meds: 15:44 Albuterol Inhl [Active]; aspirin 81 mg Oral chew 1 tab once daily [Active]; benzonatate aj1 100 mg Oral cap 1 cap twice a day [Active]; bupropion HCl 150 mg Oral TbER once daily [Active]; Carafate 100 mg/mL Oral susp 10 mL three times a day [Active]; Cinnamon 500 mg Oral cap 2 cap daily [Active]; Claritin 10 mg Oral tab 1 tab once daily [Active]; cyclobenzaprine 10 mg Oral tab twice a day [Active]; D3 2000 IU 2 per day [Active]; diphenoxylate-atropine 2.5-0.025 mg Oral tab 1-2 tablets every 6 hours [Active]; duloxetine 60 mg Oral cpDR 2 caps once daily [Active]; ferrous sulfate 325 mg (65 mg iron) Oral TbEC twice a day [Active]; Ferrous Sulfate Oral [Active]; furosemide 20 mg Oral tab one to two tabs every morning [Active]; [place] 120 mg daily [Active]; Glucosamine Oral [Active]; Humalog 100 unit/mL Sub-Q soln [Active]; hydroxyzine HCl 25 mg Oral tab 1 tab twice a day [Active]; k2 100 mcg bid [Active]; Lantus 18 U Sub-Q soln daily [Active]; lisinopril 5 mg Oral tab 1 tab once daily [Active]; lorazepam 1 mg Oral tab twice a day [Active]; Lyrica Oral 150 mg 2 times per day [Active]; lorazepam 1 mg Oral tab 1 tab 3 times per day [Active]; metoprolol succinate 25 mg Oral Tb24 1 tab once daily [Active]; multivitamin Oral cap [Active]; Myrbetriq 25 mg Oral Tb24 1 tab once daily [Active]; nitroglycerin 0.4 mg SL subl 1 tab every 5 minutes [Active]; pantoprazole 40 mg Oral TbEC 1 tab 2 times per day [Active]; Rozerem 8 mg Oral tab 1 tab bedtime [Active]; Glucagon Emergency Kit (human) 1 mg IM kit 1 mL [Active]; tramadol 50 mg Oral tab 1 tab three times a day [Active]; ondansetron HCl 8 mg Oral tab [Active]; trazodone 50 mg Oral tab nightly [Active]; Vasculera 630 mg Oral tab daily [Active]; - PMHx: 15:44 Anxiety; Arthritis; Depression; Diabetes - IDDM; Esophagitis; Fibromyalgia; aj1 gastroporeisis; GERD; heart disease; High Cholesterol; Hypertension; Myocardial infarction; neuropathy; raynaud's; sleep disorder; Tachycardia; - Immunization history:: Flu vaccine is up to date. - Social history:: Smoking status: Patient uses tobacco products, smokes one pack cigarettes per day. - Ebola Screening: : Patient denies travel to an Ebola-affected area in the 21 days before illness onset. ROS: 16:20 Constitutional: Negative for fever, chills, and weight loss, Eyes: Negative for injury, pm1 pain, redness, and discharge, ENT: Negative for injury, pain, and discharge, Neck: Negative for injury, pain, and swelling, Cardiovascular: Negative for chest pain, palpitations, and edema, Respiratory: Negative for shortness of breath, cough, wheezing, and pleuritic chest pain, Abdomen/GI: Negative for abdominal pain, nausea, vomiting, diarrhea, and constipation, Back: Negative for injury and pain, : Negative for injury, bleeding, discharge, and swelling, MS/Extremity: Negative for injury and deformity, Skin: Negative for injury, rash, and discoloration, Neuro: Negative for headache, weakness, numbness, tingling, and seizure. 16:20 Psych: Positive for anxiety, Negative for depression, suicidal ideation. Exam: 16:20 Constitutional: This is a well developed, well nourished patient who is awake, alert, pm1 and in no acute distress. Head/Face: Normocephalic, atraumatic. Eyes: Pupils equal round and reactive to light, extra-ocular motions intact. Lids and lashes normal. Conjunctiva and sclera are non-icteric and not injected. Cornea within normal limits. Periorbital areas with no swelling, redness, or edema. ENT: Nares patent. No nasal discharge, no septal abnormalities noted. Tympanic membranes are normal and external auditory canals are clear. Oropharynx with no redness, swelling, or masses, exudates, or evidence of obstruction, uvula midline. Mucous membranes moist. Neck: Trachea midline, no thyromegaly or masses palpated, and no cervical lymphadenopathy. Supple, full range of motion without nuchal rigidity, or vertebral point tenderness. No Meningismus. Chest/axilla: Normal chest wall appearance and motion. Nontender with no deformity. No lesions are appreciated. Cardiovascular: Regular rate and rhythm with a normal S1 and S2. No gallops, murmurs, or rubs. No pulse deficits. Respiratory: Lungs have equal breath sounds bilaterally, clear to auscultation and percussion. No rales, rhonchi or wheezes noted. No increased work of breathing, no retractions or nasal flaring. Abdomen/GI: Soft, non-tender, with normal bowel sounds. No distension or tympany. No guarding or rebound. No evidence of tenderness throughout. Back: No spinal tenderness. No costovertebral tenderness. Full range of motion. Skin: Warm, dry with normal turgor. Normal color with no rashes, no lesions, and no evidence of cellulitis. MS/ Extremity: Pulses equal, no cyanosis. Neurovascular intact. Full, normal range of motion. 16:20 Neuro: Orientation: is normal, Motor: is normal, moves all fours, strength is normal, strength is 5/5 in all extremities. 16:20 Psych: Behavior/mood is pleasant, cooperative, Affect is calm, Patient has no thoughts/intents to harm self or others. Vital Signs: 15:44 BP 127 / 67; Pulse 95; Resp 18; Temp 98.5(O); Pulse Ox 97% on R/A; Pain 7/10; aj1 17:25 BP 128 / 74; Pulse 89; Resp 16; Pulse Ox 98% on R/A; Pain 0/10; iw MDM: 15:24 Patient medically screened. pm1 17:14 Data reviewed: vital signs. Data interpreted: Pulse oximetry: on room air is 97 %. pm1 Interpretation: normal. Counseling: I had a detailed discussion with the patient and/or guardian regarding: the historical points, exam findings, and any diagnostic results supporting the discharge/admit diagnosis, lab results, the need for outpatient follow up, to return to the emergency department if symptoms worsen or persist or if there are any questions or concerns that arise at home. 02/13 15:40 Order name: Acetaminophen; Complete Time: 17:14 pm02/13 15:40 Order name: Basic Metabolic Panel; Complete Time: 17:14 pm02/13 15:40 Order name: CBC with Diff; Complete Time: 16:44 pm02/13 15:40 Order name: ETOH Level; Complete Time: 17:14 pm02/13 15:40 Order name: Hepatic Function; Complete Time: 17:14 pm02/13 15:40 Order name: PT-INR; Complete Time: 16:44 pm02/13 15:40 Order name: Urine Test (obtain specimen); Complete Time: 16:22 pm02/13 15:40 Order name: Ptt, Activated; Complete Time: 16:44 pm02/13 15:40 Order name: Salicylate; Complete Time: 17:14 pm02/13 15:40 Order name: Urine Drug Screen; Complete Time: 16:46 pm02/13 15:40 Order name: EKG; Complete Time: 15:41 pm1 02/13 15:40 Order name: EKG - Nurse/Tech; Complete Time: 16:48 pm1 02/13 15:40 Order name: IV Saline Lock; Complete Time: 16:22 pm1 02/13 15:40 Order name: Labs collected and sent; Complete Time: 16:22 pm1 02/13 15:40 Order name: Urine Dipstick-Ancillary (obtain specimen); Complete Time: 16:22 pm1 Administered Medications: 16:46 Drug: Ativan 1 mg Route: PO; aj1 17:28 Follow up: Response: No adverse reaction; Anxiety decreased iw Disposition: 02/14 14:09 Co-signature as Attending Physician, Russel Sifuentes MD I agree with the assessment and corey plan of care. Disposition: 02/13/18 17:16 Discharged to Home. Impression: Anxiety disorder, unspecified. - Condition is Stable. - Discharge Instructions: Panic Attacks, Generalized Anxiety Disorder. - Medication Reconciliation Form, Thank You Letter form. - Follow up: Emergency Department; When: As needed; Reason: Worsening of condition. Follow up: Fabián Guerra MD; When: 2 - 3 days; Reason: Recheck today's complaints, Continuance of care, Re-evaluation by your physician. - Problem is new. - Symptoms have improved. Signatures: Dispatcher [employer] EDKarine Maya RN RN aj1 Russel Sifuentes MD MD cha Williams, Irene, RN RN iw Barrett Sexton, MATHEMATICS IMPROVEMENT TEACHER MATHEMATICS IMPROVEMENT TEACHER pm1 Corrections: (The following items were deleted from the chart) 02/13 17:28 17:16 02/13/2018 17:16 Discharged to Home. Impression: Anxiety disorder, unspecified. iw Condition is Stable. Forms are Medication Reconciliation Form, Thank You Letter, Antibiotic Education, Prescription Opioid Use. Follow up: Emergency Department; When: As needed; Reason: Worsening of condition. Follow up: Fabián Guerra; When: 2 - 3 days; Reason: Recheck today's complaints, Continuance of care, Re-evaluation by your physician. Problem is new. Symptoms have improved. pm1
--- NOTE | 2018-02-13 17:16 | ER ---
Nurse's Notes [facility] Name: Ila Pérez Age: 52 yrs Sex: Female : 1965 Arrival Date: 02/13/2018 Time: 15:12 Bed 15 Private MD: Fabián Guerra E Diagnosis: Anxiety disorder, unspecified Presentation: 02/13 15:29 Presenting complaint: Patient states: "I feel like I'm having a nervous breakdown. I aj1 have shakes and twitching and nothing I take is controlling it.". Transition of care: patient was not received from another setting of care. Risk Assessment: Do you want to hurt yourself or someone else? Patient reports no desire to harm self or others. Initial Sepsis Screen: Does the patient meet any 2 criteria? No. Patient's initial sepsis screen is negative. Does the patient have a suspected source of infection? No. Patient's initial sepsis screen is negative. Care prior to arrival: None. 15:29 Method Of Arrival: Ambulatory [facility] 15:29 Acuity: DEVONTE 4 aj1 17:26 Onset of symptoms was February 13, 2018. Triage Assessment: 15:44 General: Appears in no apparent distress. comfortable, Behavior is calm, cooperative, aj1 appropriate for age. Pain: Complains of pain in back Pain does not radiate. Pain currently is 7 out of 10 on a pain scale. Quality of pain is described as aching, Pain began 30 min ago. Is intermittent, Alleviated by nothing. 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 LMP N/A - iw Historical: - Allergies: 15:44 Gluten Protein; aj1 - Home Meds: 15:44 Albuterol Inhl [Active]; aspirin 81 mg Oral chew 1 tab once daily [Active]; benzonatate aj1 100 mg Oral cap 1 cap twice a day [Active]; bupropion HCl 150 mg Oral TbER once daily [Active]; Carafate 100 mg/mL Oral susp 10 mL three times a day [Active]; Cinnamon 500 mg Oral cap 2 cap daily [Active]; Claritin 10 mg Oral tab 1 tab once daily [Active]; cyclobenzaprine 10 mg Oral tab twice a day [Active]; D3 2000 IU 2 per day [Active]; diphenoxylate-atropine 2.5-0.025 mg Oral tab 1-2 tablets every 6 hours [Active]; duloxetine 60 mg Oral cpDR 2 caps once daily [Active]; ferrous sulfate 325 mg (65 mg iron) Oral TbEC twice a day [Active]; Ferrous Sulfate Oral [Active]; furosemide 20 mg Oral tab one to two tabs every morning [Active]; Ginko [place]bo[place] 120 mg daily [Active]; Glucosamine Oral [Active]; Humalog 100 unit/mL Sub-Q soln [Active]; hydroxyzine HCl 25 mg Oral tab 1 tab twice a day [Active]; k2 100 mcg bid [Active]; Lantus 18 U Sub-Q soln daily [Active]; lisinopril 5 mg Oral tab 1 tab once daily [Active]; lorazepam 1 mg Oral tab twice a day [Active]; Lyrica Oral 150 mg 2 times per day [Active]; lorazepam 1 mg Oral tab 1 tab 3 times per day [Active]; metoprolol succinate 25 mg Oral Tb24 1 tab once daily [Active]; multivitamin Oral cap [Active]; Myrbetriq 25 mg Oral Tb24 1 tab once daily [Active]; nitroglycerin 0.4 mg SL subl 1 tab every 5 minutes [Active]; pantoprazole 40 mg Oral TbEC 1 tab 2 times per day [Active]; Rozerem 8 mg Oral tab 1 tab bedtime [Active]; Glucagon Emergency Kit (human) 1 mg IM kit 1 mL [Active]; tramadol 50 mg Oral tab 1 tab three times a day [Active]; ondansetron HCl 8 mg Oral tab [Active]; trazodone 50 mg Oral tab nightly [Active]; Vasculera 630 mg Oral tab daily [Active]; - PMHx: 15:44 Anxiety; Arthritis; Depression; Diabetes - IDDM; Esophagitis; Fibromyalgia; aj1 gastroporeisis; GERD; heart disease; High Cholesterol; Hypertension; Myocardial infarction; neuropathy; raynaud's; sleep disorder; Tachycardia; - Immunization history:: Flu vaccine is up to date. - Social history:: Smoking status: Patient uses tobacco products, smokes one pack cigarettes per day. - Ebola Screening: : Patient denies travel to an Ebola-affected area in the 21 days before illness onset. Screenin:48 Abuse screen: Denies threats or abuse. Denies injuries from another. Nutritional aj1 screening: No deficits noted. Tuberculosis screening: No symptoms or risk factors identified. 17:25 Fall Risk iw Assessment: 15:48 General: Appears in no apparent distress. comfortable, Behavior is calm, cooperative, aj1 appropriate for age. Pain: Complains of pain in back Pain does not radiate. Pain currently is 7 out of 10 on a pain scale. Quality of pain is described as aching, Pain began 30 min ago. Is intermittent, Alleviated by nothing. Neuro: Level of Consciousness is awake, alert, obeys commands, Oriented to person, place, time, situation. Cardiovascular: Patient's skin is warm and dry. Respiratory: Airway is patent Respiratory effort is even, unlabored, Respiratory pattern is regular, symmetrical. GI: No signs and/or symptoms were reported involving the gastrointestinal system. : No signs and/or symptoms were reported regarding the genitourinary system. EENT: No signs and/or symptoms were reported regarding the EENT system. Derm: Skin is pink, warm \\T\\ dry. normal. Musculoskeletal: No signs and/or symptoms reported regarding the musculoskeletal system. Circulation, motion, and sensation intact. 17:15 Reassessment: Patient appears in no apparent distress at this time. Patient and/or iw family updated on plan of care and expected duration. Pain level reassessed. Patient is alert, oriented x 3, equal unlabored respirations, skin warm/dry/pink. pt requesting to be discharged soon, states that her is waiting for her and she needs to leave Patient states feeling better. Patient states symptoms have improved. Vital Signs: 15:44 BP 127 / 67; Pulse 95; Resp 18; Temp 98.5(O); Pulse Ox 97% on R/A; Pain 7/10; aj1 17:25 BP 128 / 74; Pulse 89; Resp 16; Pulse Ox 98% on R/A; Pain 0/10; iw ED Course: 14:00 Inserted saline lock: 22 gauge in left hand, using aseptic technique. Blood collected. ag 15:12 Patient arrived in ED. rg4 15:12 Fabián Guerra MD is Private Physician. rg4 15:18 Karine Cuello RN is Primary Nurse. aj1 15:24 Barrett Sexton NP is PHCP. pm1 15:24 Russel Sifuentes MD is Attending Physician. pm1 15:30 Triage completed. aj1 15:44 Arm band placed on. aj1 15:48 Patient has correct armband on for positive identification. Bed in low position. Call aj1 light in reach. Side rails up X 1. 15:48 No provider procedures requiring assistance completed. aj1 17:15 Fabián Guerra MD is Referral Physician. pm1 17:24 Missed attempt(s): 20 gauge in right in left antecubital area. Bleeding controlled, ag band aid applied, catheter tip intact. 17:25 IV discontinued, intact, bleeding controlled, No redness/swelling at site. Pressure iw dressing applied. Administered Medications: 16:46 Drug: Ativan 1 mg Route: PO; aj1 17:28 Follow up: Response: No adverse reaction; Anxiety decreased iw Outcome: 17:16 Discharge ordered by . pm1 17:25 Discharged to home ambulatory. iw 17:25 Condition: good 17:25 Discharge instructions given to patient, Instructed on discharge instructions, follow up and referral plans. Demonstrated understanding of instructions, follow-up care. 17:28 Patient left the ED. iw Signatures: Karine Cuello RN RN aj1 Xin Garcia RN RN iw Avila, Rosalba ag Barrett Sexton, YUE RESIDENTIAL BUILDER pm1 Uzma Haddad rg4 Corrections: (The following items were deleted from the chart) 17:25 17:24 Missed attempt(s): 20 gauge in right in left antecubital area. Bleeding ag controlled, band aid applied, catheter tip intact. ag 17:26 17:24 Missed attempt(s): 20 gauge in right in left antecubital area. Bleeding ag controlled, band aid applied, catheter tip intact. ag
[2018-02-13 17:43] VITALS: BP 128/74; O2SAT 98
[2018-02-13 17:45] VITALS: TEMP 98.5
--- NOTE | 2018-02-14 06:30 | EKG ---
Test Date: 2018-02-13 Test Time: 16:41:01 Auditing Clerk: BRYANT MEASUREMENT RESULTS: Intervals: Rate: 89 WI: 160 QRSD: 88 QT: 354 QTc: 430 [place]: P: 72 WI: 160 QRS: 62 T: 42 INTERPRETIVE STATEMENTS: Normal sinus rhythm Normal ECG Compared to ECG 12/12/2017 18:59:54 No significant changes Electronically Signed On 02-14-18 06:28:51 CDT by Cassius Perea
== END 2018-02-13 17:28 | disposition home or self-care (01) ==
LOC: ER 15:08
DX: F41.9 Anxiety disorder, unspecified (principal); I10 Essential (primary) hypertension; E11.9 Type 2 diabetes mellitus without complications; E78.00 Pure hypercholesterolemia, unspecified; I25.2 Old myocardial infarction; F17.210 Nicotine dependence, cigarettes, uncomplicated; Z79.4 Long term (current) use of insulin; Z79.82 Long term (current) use of aspirin; Z91.018 Allergy to other foods
CPT/HCPCS: 36415; 80048; 80076; 80307; 80320; 80329; 85025; 85610; 85730; 93005; 99283

== ENCOUNTER 2018-02-26 19:18 | Emergency (ER) | payer MEDICARE ==
--- OUTSIDE RECORDS SUMMARY | 2018-02-26 19:20 | XMS REPORT | Clinical Summary ---
:1965 Author Organization [facility] Address [address] [place] [address] Phone Care Team Providers Name Role Phone [...] 06/24/2017 Anesthesia Event Sly Malloy MD after 02/25/2017 Social History Tobacco Use Types Packs/Day Years [...] Trigger finger of left CDT thumb after 02/25/2017 Results POC-Glucose meter (06/25/2017 2:32 PM)Only the most recent of2 resultswithin the time period is included. Component Value Ref Range POC-Glucose Meter 200 (H)Comment: TESTED AT [address] 70 - 110 mg/[place] [id number] Specimen Performing Laboratory Blood [facility] [address] [address] ECG 12 lead (06/25/2017 1:04 PM) Specimen Performing Laboratory GE MUSE Narrative Ventricular Rate 76 BPM Atrial Rate 76 BPM P-R Interval 156 ms QRS Duration 86 ms Q-T Interval 382 ms QTC Calculation(Bazett) 429 ms P [place] 7 degrees R [place] 59 degrees T [place] 28 degrees Normal sinus rhythm Normal ECG No previous ECGs available Confirmed by MD NASSAR CHUNG-SHIN ([id number]) on 07/06/2017 10:28:29 AM Procedure Note Interface, External Ris In - 07/06/2017 10:28 AM CDT Ventricular Rate 76 BPM Atrial Rate 76 BPM P-R Interval 156 ms QRS Duration 86 ms Q-T Interval 382 ms QTC Calculation(Bazett) 429 ms P [place] 7 degrees R [place] 59 degrees T [place] 28 degrees Normal sinus rhythm Normal ECG [...] PATIENTS. Specimen Performing Laboratory Blood - Arm, [address] [address] Glucose (06/25/2017 11:38 AM) Component Value Ref Range Glucose 353 (H) 70 - 105 mg/dL Specimen Performing Laboratory Blood - Arm, [address] [address] Electrolytes (06/25/2017 11:38 AM) Component Value Ref Range Sodium 136 136 - 145 meq/L Potassium 5.4 (H) 3.5 - 5.1 meq/L Chloride 102 98 - 107 meq/L CO2 25 22 - 29 meq/L Specimen Performing Laboratory Blood - Arm, [address] [address] POC-Hemoglobin meter (06/25/2017 11:34 AM) Component Value Ref Range POC-Hemoglobin Meter 12.1Comment: TESTED AT [address] 12.0 - 15.0 g/ dL [facility] [id number] Specimen Performing Laboratory Blood [address] [address] POCT , urine (06/25/2017 10:56 AM) Component Value Ref Range Test Urine, POC Negative Control line present?, POC Yes Background clear?, POC Yes UPT Cassette Lot #, POC [id number] UPT Cassette Expiration Date, POC 11/03/18 Specimen Performing Laboratory Urine after 02/25/2017
[2018-02-26] MEDS ORDERED: DOXYCYCLINE 100 MG CAP PO ONE (19:56)
[2018-02-26] MEDS ORDERED: TETANUS & DIPHTHERIA TOX,ADULT 0.5 ML VIAL ONE (19:57)
--- OUTSIDE RECORDS SUMMARY | 2018-02-26 20:12 | XMS REPORT | Continuity of Care Document ---
:1965 Author Organization Interface Problems Problem Status Onset Classification Date Comments Source Date Reported PAIN IN Active 08/13/20 [facility] ABDOMEN/NAUSEA/TI Medical GHTENESS IN [facility] Center BDDC/GASTROESOPHA Active 07/24/20 [facility] GEAL REFLUX [address] [place] [address] DISEASE Center VOMITING Active 07/11/[address] GASTROPARESIS Active 07/11/[address] CHEST PAIN Active 04/02/[address] Center R/O ACS Active 04/02/[address] HYPERGLYCEMIA Active 03/06/20 [facility] DEHYDRATION [address] [place] [address] GASTROPARESIS Center SOB/CHEST PAIN Active 03/06/[address] NASEAU Active 01/11/[address] N/V Active 11/29/[address] VOMITTING, Active 11/29/19 [facility] DIABETIC, HEART [address] [place] [address] PT Center NAUSEA, VOMITTING Active 11/17/[address] ACS R/O AND Active 11/17/19 [facility] PERSISTANT N/V [address] [place] [address] MRSA<sup>1, Active 10/23/19 Problem 11/19/2012 2Problem [facility] </sup><sup>2</sup 13 added by Medical > Discern Center Expert. MRSA<sup>1, 2, 3, Active 10/23/19 Problem 08/15/2013 4Problem [facility] 4</sup> 13 added by Medical Discern Center Expert. MRSA<sup>1, Active 10/23/19 Problem 04/05/2013 4Problem [facility] </sup><sup>2, 13 added by Medical </sup><sup>3, Discern Center </sup><sup>4</sup Expert. > N/V DEHYDRATION Active 10/22/[address] [place] - Myocardial Resolved 10/22/19 Problem 08/15/2013 [facility] infarction [address] [place] [address] [place] - Myocardial Resolved 10/22/19 Problem 04/05/2013 [facility] infarction [address] [place] [address] DSU/ REFLUX Active 06/13/[address] MORBID OBESITY Active 01/19/[address] Acid reflux Resolved Problem 04/05/2013 [facility] Anemia Resolved Problem 04/05/2013 [facility] Anxiety Resolved Problem 04/05/2013 [facility] Arthritis Resolved Problem 04/05/2013 [facility] Depression Resolved Problem 04/05/2013 [facility] Diabetes mellitus Resolved Problem 04/05/[address] Edema of lower Resolved Problem 04/05/2013 [facility] Fibromyalgia Resolved Problem 04/05/2013 [facility] Hyperlipidemia Resolved Problem 04/05/2013 [facility] Hypertension Resolved Problem 04/05/2013 [facility] Acid reflux Resolved Problem 08/15/2013 [facility] Anemia Resolved Problem 08/15/2013 [facility] Anxiety Resolved Problem 08/15/2013 [facility] Arthritis Resolved Problem 08/15/2013 [facility] Depression Resolved Problem 08/15/2013 [facility] Diabetes mellitus Resolved Problem 08/15/[address] Edema of lower Resolved Problem 08/15/2013 [facility] Fibromyalgia Resolved Problem 08/15/2013 [facility] Gastric ulcer Resolved Problem 08/15/2013 [facility] Hyperlipidemia Resolved Problem 08/15/2013 [facility] Hypertension Resolved Problem 08/15/2013 [facility] Neuropathy Resolved Problem 08/15/2013 [facility] Gastric ulcer Resolved Problem 04/05/2013 [facility] Neuropathy Resolved Problem 04/05/2013 [facility] CHEST PAIN NOS Active [facility] MORBID OBESITY Active [facility] NAUSEA WITH Active [facility] VOMITING [facility] OTHER GENERAL Active [facility] Medications Medication Details Route Status Patient Ordering Order Source Instructions Provider Date Zofran 4 mg oral 4 mg=1 tab, Active De La Garza 08/13[facility] tablet PO, BID, # 10 2012 Medical tab, 0 Center Refill(s) Reglan 10 mg 10 mg=1 tab, Active De La Garza 08/13[facility] oral tablet PO, QID, # 40 2012 Medical tab, 0 Center Refill(s) IDS med 5 mg, 1 mL, Inactive Ruggiero 08/13/ [facility] Rate: 30 2012 Medical ml/hr, Infuse Center over: 2 minutes, Route: IV, Total Volume: 1, Stop date: 08/13/13 16:00:00 NS (Bolus) IV 1,000 mL, Inactive De La Garza [place] 1,000 mL Rate: 1,000 2012 Medical ml/hr, Infuse Center over: 1 hr, Route: IV, Dosing Weight 81.818 kg, Total Volume: 1,000, Priority: STAT, Start date: 08/13/13 13:56:00, Duration: 1 doses or times, Stop date: 08/13/13 14:55:00, Bolus Dose
Bolus Dose Phenergan 25 mg, 1 mL, Inactive De La Garza [facility] Route: [id number] Medical Drug form: [place] INJ, ONCE, Dosing Weight 81.818, kg, Priority: STAT, Start date: 08/13/13 13:17:00, Stop date: 08/13/13 13:17:00Do not give IV push. (Same as: Phenergan) Zofran 4 mg, 2 mL, Inactive De La Garza [facility] Route: [id number] Medical Drug form: [place] INJ, ONCE, Dosing Weight 81.818, kg, Priority: STAT, Start date: 08/13/13 12:41:00, Stop date: 08/13/13 12:41:00(Same as: Zofran) morphine Sulfate 4 mg, 1 mL, Inactive De La Garza [facility] Route: IVP2012 Medical Drug form: [place] INJ, ONCE, Dosing Weight 81.818, kg, Priority: STAT, Start date: 08/13/13 12:40:00, Stop date: 08/13/13 12:40:00(Same as:MORPhine Sulfate) Sodium Chloride 1,000 mL, Inactive Bublenereydacz [facility] 0.9% (Bolus) IV Rate: 1,000 2012 Medical 1,000 mL ml/hr, Infuse Center over: 1 hr, Route: IV, Dosing Weight 81.818 kg, Total Volume: 1,000, Priority: STAT, Start date: 08/13/13 11:52:00, Duration: 1 doses or times, Stop date: 08/13/13 12:51:00, Bolus Dose
Bolus Dose normal saline 1,000 mL, Inactive Adolfo [facility] 0.9% IV 1,000 mL Rate: 500 2012 Medical ml/hr, Infuse Center over: 2 hr, Route: IV, Dosing Weight 86.364 kg, Total Volume: 1,000, Start date: 07/14/13 14:02:00, Duration: 4 hr, Stop date: 07/14/13 18:01:00 Reglan 10 mg 10 mg, 1 tab, Inactive [facility] oral tablet Route: PO, 2012 Medical Drug form: [place] TAB, TID-Before Meals, Dosing Weight 86.364, kg, Start date: 07/14/13 11:30:00, Duration: 30 day, Stop date: 08/13/13 7:30:00(Same as: Reglan) Take 30 min before meals Levemir 15 unit, 0.15 No Longer [facility] mL, Route: Active 2012 Medical SUB-Q, Drug Center form: INJ, BID, Dosing Weight 86.364, kg, Start date: 07/13/13 21:00:00, Duration: 30 day, Stop date: 08/12/13 9:00:00Same as Levemir "single patient use only" pneumococcal 0.5 ml, Route: No Longer [facility] 07/13[facility] 23-valent IM, Drug Form: Active 2012 Medical vaccine INJ, Start Center date: 07/13/13 9:00:00, Stop date: 07/13/13 9:00:00 influenza virus 0.5 ml, Route: No Longer [facility] 07/13[facility] vaccine, IM, Drug Form: Active 2012 Medical inactivated SUSP, Start Center date: 07/13/13 9:00:00, Stop date: 07/13/13 9:00:00 lisinopril 20 mg, 1 tab, No Longer [facility] Route: PO, Active 2012 Medical Drug form: Center TAB, Daily, Dosing Weight 86.364, kg, Start date: 07/13/13 9:00:00, Duration: 30 day, Stop date: 08/11/13 9:00:00(Same as: Prinivil, Zestril) metoprolol 50 mg, Route: No Longer [facility] tartrate PO, Drug form: Active 2012 Medical TAB, Daily, Center Dosing Weight 86.364, kg, Start date: 07/13/13 9:00:00, Duration: 30 day, Stop date: 08/11/13 9:00:00 Lyrica 150 mg, 2 cap, No Longer [facility] [place] Route: PO, Active 2012 Medical Drug form: [place] CAP, BID, Dosing Weight 86.364, kg, Start date: 07/13/13 9:00:00, Duration: 30 day, Stop date: 08/11/13 17:00:00(Same as: Lyrica) potassium 20 mEq, 1 tab, No Longer Adolfo [place] chloride Route: PO, 2012 Medical Drug form: [place] ERTAB, Daily, Dosing Weight 86.364, kg, Start date: 07/13/13 9:00:00, Duration: 30 day, Stop date: 08/11/13 9:00:00(Same as: K-Dur 20) "Do Not Crush" With food and full glass of water Effient 10 mg, 1 tab, No Longer [facility] [place] Route: PO, 2012 Medical Drug form: [place] TAB, Daily, Dosing Weight 86.364, kg, Start date: 07/13/13 9:00:00, Duration: 30 day, Stop date: 08/11/13 9:00:00Same as Effient For patients < 75 years old, > 60kg, without history of TIA/Ischemic stroke and without likely bypass surgery Protonix 40 mg, 1 tab, No Longer [facility] [place] Route: PO, 2012 Medical Drug form: [place] ECTAB, BID-Before Meals, Dosing Weight 86.364, kg, Start date: 07/13/13 9:00:00, Stop date: 08/11/13 16:30:00Tablet should not be chewed or crushed. (Same as: Protonix) meloxicam 7.5 mg, Route: No Longer [facility] [place] PO, Drug form: Active 2012 Medical TAB, BID, [place] Dosing Weight 86.364, kg, Start date: 07/13/13 9:00:00, Duration: 30 day, Stop date: 08/11/13 17:00:00 magnesium oxide 400 mg, 1 tab, No Longer [facility] [place] Route: PO, Active 2012 Medical Drug form: [place] TAB, Daily, Dosing Weight 86.364, kg, Start date: 07/13/13 9:00:00, Duration: 30 day, Stop date: 08/11/13 9:00:00(Same as: Mag-Ox 400) Magnesium oxide [id number] elemental magnesium Dose=____mg magnesium oxide (___mg elemental magnesium) furosemide 40 mg 40 mg, 1 tab, No Longer [facility] oral tablet Route: PO, Active 2012 Medical Drug form: [place] TAB, Daily, Dosing Weight 86.364, kg, Start date: 07/13/13 9:00:00, Duration: 30 day, Stop date: 08/11/13 9:00:00(Same as: Lasix) May cause GI upset. Give with food or milk. ferrous sulfate 325 mg, 1 tab, No Longer [facility] Route: PO, Active 2012 Medical Drug form: [place] ECTAB, TID, Dosing Weight 86.364, kg, Start date: 07/13/13 9:00:00, Duration: 30 day, Stop date: 08/11/13 17:00:00Give with food. "Do Not Crush" clonazepam 0.5 mg, 1 tab, No Longer [facility] Route: PO, Active 2012 Medical Drug form: [place] TAB, TID, Dosing Weight 86.364, kg, Start date: 07/13/13 9:00:00, Duration: 30 day, Stop date: 08/11/13 17:00:00(Same As: Klonopin) Insulin regular 5 unit, 0.05 No Longer [facility] mL, Route: Active 2012 Medical SUB-Q, [...] at room temperature Expires in days from Date Reglan 10 mg, 2 mL, No Longer Adolfo [facility] Route: IVP, Active 2012 Medical Drug form: [place] INJ, Q6H, Dosing Weight 86.364, kg, Start date: 07/13/13 0:00:00, Duration: 30 day, Stop date: 08/11/13 18:00:00(Same as: Reglan) normal saline 1,000 mL, No Longer [facility] 0.9% IV 1,000 mL Rate: 200 2012 [facility] ml/hr, Infuse [place] over: 5 hr, Route: IV, Dosing Weight 86.364 kg, Total Volume: 1,000, Start date: 07/12/13 21:08:00, Duration: 3 doses or times, Stop date: 07/13/13 12:07:00 metoprolol 50 mg, 1 tab, No Longer Adolfo [facility] tartrate Route: PO, 2012 Medical Drug form: [place] TAB, Q12H, Dosing Weight 86.364, kg, Start date: 07/12/13 21:00:00, Duration: 30 day, Stop date: 08/11/13 9:00:00(Same as: Lopressor) Levemir 12 unit, 0.12 No Longer [facility] mL, Route: Active 2012 Medical SUB-Q, Drug Center form: INJ, BID, Dosing Weight 86.364, kg, Start date: 07/12/13 21:00:00, Duration: 30 day, Stop date: 08/11/13 9:00:00Same as Levemir "single patient use only" Cymbalta 120 mg, 2 cap, No Longer [facility] Route: PO, Active 2012 Medical Drug form: [place] DRC, Bedtime, Dosing Weight 86.364, kg, Start date: 07/12/13 21:00:00, Duration: 30 day, Stop date: 08/10/13 21:00:00Non Formulary Drug (Same as: Cymbalta) (Do Not Crush) ProAir HFA 90 2 puff, Route: No Longer [facility] mcg/inh INHALATION, Active 2012 Medical inhalation Drug Form: [place] aerosol with AERO/A, Dosing adapter Weight 86.364, kg, QID, PRN Shortness of breath, Start date: 07/12/13 20:09:00, Duration: 30 day, Stop date: 08/11/13 20:08:00[place] rol 90 microgram/inh 8gm HFA Same as: Irina Proventil aspirin 81 mg 81 mg, 1 tab, No Longer [facility] tablet, enteric Route: PO, Active 2012 Medical coated Drug form: [place] ECTAB, Daily, Dosing Weight 86.364, kg, Start date: 07/12/13 20:00:00, Duration: 30 day, Stop date: 08/11/13 9:00:00Do not crush or chew. (Same As: Ecotrin) glucagon 1 mg, Route: No Longer [facility] IM, Drug form: Active 2012 Medical PDR/INJ, PRN, [place] Dosing Weight 86.364, kg, PRN Blood Glucose Results, Start date: 07/12/13 18:26:00, Duration: 30 day, Stop date: 08/11/13 18:25:00 Dextrose 50% 12.5 gm, 25 No Longer [facility] Syringe mL, Route: Active 2012 [facility] IVP, Drug Center Form: INJ, Dosing Weight 86.364, kg, PRN, PRN Blood Glucose Results, Start date: 07/12/13 18:26:00, Duration: 30 day, Stop date: 08/11/13 18:25:00 insulin aspart 4 unit, 0.04 No Longer [facility] mL, Route: Active 2012 [facility] SUB-Q, Drug Center form: SOLN, TID-Before Meals, Dosing Weight 86.364, kg, PRN Blood Glucose Results, Start date: 07/12/13 18:26:00, Duration: 30 day, Stop date: 08/11/13 18:25:00Roll in palms of hands gently; Do not shake vigorously. (Same as: NovoLog) "single patient use only" Stable for 28 days at room temperature. Expires in days from Date tramadol 50 mg 50 mg, 1 tab, No Longer [facility] oral tablet Route: PO, Active 2012 Medical Drug form: Center TAB, Q4H, Dosing Weight 86.364, kg, PRN as needed for pain, Start date: 07/12/13 18:24:00, Duration: 30 day, Stop date: 08/11/13 18:23:00Not to exceed 400mg/day. (Same As: Ultram) acetaminophen-hy 1 tab, Route: No Longer [facility] drocodone 325 PO, Drug Form: Active 2012 Medical mg-5 mg oral TAB, Dosing Center tablet Weight 86.364, kg, Q4H, PRN Pain, Start date: 07/12/13 18:23:00, Duration: 30 day, Stop date: 08/11/13 18:22:00(Same as: Mark 325/5) Do not exceed 4gm/day of acetaminophen. Flexeril 10 mg, 1 tab, No Longer [facility] Route: PO, Active 2012 Medical Drug form: Center TAB, TID, Dosing Weight 86.364, kg, PRN Spasm, Start date: 07/12/13 18:23:00, Duration: 30 day, Stop date: 08/11/13 18:22:00(Same As: Flexeril) benzonatate 100 mg, 1 cap, No Longer [facility] Route: PO, Active 2012 Medical Drug form: Center CAP, TID, Dosing Weight 86.364, kg, PRN as needed for cough, Start date: 07/12/13 18:23:00, Duration: 30 day, Stop date: 08/11/13 18:22:00(Same As: Oleksandr Francis) "Do Not Crush" Saline Flush 5 ml, Route: No Longer [facility] 0.9% IVP, Drug Active 2012 Medical Form: INJ, Center Dosing Weight 86.364, kg, PRN, PRN Line Flush, Start date: 07/12/13 18:22:00, Duration: 30 day, Stop date: 08/11/13 18:21:00(Same as: BD Posiflush) ondansetron 4 mg, 2 mL, No Longer [facility] Route: IVP, Active 2012 Medical Drug form: Center INJ, Q8H, Dosing Weight 86.364, kg, PRN Nausea & Vomiting, Start date: 07/12/13 18:22:00, Duration: 30 day, Stop date: 08/11/13 18:21:00(Same as: Zofran) aspirin 81 mg 81 mg, 1 tab, Active [facility] tablet, enteric PO, Daily, 0 2012 Medical coated tab, Center Substitution Allowed, ECTAB Klor-Con M20 20 mEq, 1 tab, No Longer [facility] oral tablet, PO, Daily, 180 Active 2012 Medical extended release tab, Center Substitution Allowed, ERTAB furosemide 40 mg 40 mg, 1 tab, No Longer [facility] 07/12[facility] oral tablet PO, Daily, 30 Active 2012 Medical tab, Center Substitution Allowed, TAB benzonatate 100 PO, TID, PRN, Active [facility] mg oral capsule 1 to 2 tabs, 2012 Medical prn, Center Substitution Allowed
1 to 2 tabs metoprolol 50 mg, 1 tab, No Longer [facility] tartrate 50 mg PO, Daily, 180 Active 2012 Medical oral tablet tab, Center Substitution Allowed, TAB Reglan 10 mg, 2 mL, Inactive Clover Simmons 07/12[facility] Route: IVP, 2012 Medical Drug form: Center INJ, ONCE, Dosing Weight 86.364, kg, Priority: STAT, Start date: 07/12/13 12:12:00, Stop date: 07/12/13 12:12:00(Same as: Reglan) Zofran 4 mg, Route: Inactive [facility] 07/12[facility] IVP, Drug 2012 Medical form: INJ, Center ONCE, Dosing Weight 86.364, kg, Priority: STAT, Start date: 07/12/13 10:52:00, Stop date: 07/12/13 10:52:00 morphine Sulfate 4 mg, Route: Inactive [facility] 07/12[facility] IVP, Drug 2012 Medical form: INJ, Center ONCE, Dosing Weight 86.364, kg, Priority: STAT, Start date: 07/12/13 10:51:00, Stop date: 07/12/13 10:51:00 Zofran 4 mg, 2 mL, Inactive Clover Simmons 07/12[facility] Route: IVP, 2012 Medical Drug form: Center INJ, ONCE, Dosing Weight 86.364, kg, Priority: STAT, Start date: 07/12/13 10:20:00, Stop date: 07/12/13 10:20:00(Same as: Zofran) NS (Bolus) IV 1,000 mL, Inactive Clover Simmons Fei 1000 mL Rate: 1,000 2013 [facility] ml/hr, Infuse Center over: 1 hr, Route: IV, Dosing Weight 86.364 kg, Total Volume: 1,000, Priority: STAT, Start date: 07/12/13 10:06:00, Duration: 1 doses or times, Stop date: 07/12/13 11:05:00, Bolus Dose
Bolus Dose Mark 5/325 oral 1 tab, Route: Inactive Clover Simmons [facility] tablet PO, Dosing 2012 Medical Weight 86.364, Center kg, ONCE, Start date: 07/12/13 10:05:00, Stop date: 07/12/13 10:05:00 morphine Sulfate 4 mg, 1 mL, Inactive Clover Simmons [facility] Route: IVP, 2012 Medical Drug form: [place] INJ, ONCE, Dosing Weight 86.364, kg, Priority: STAT, Start date: 07/12/13 9:32:00, Stop date: 07/12/13 9:32:00(Same as:MORPhine Sulfate) Zofran ODT 8 mg, Route: Inactive [place] 07/12[facility] PO, Drug form: 2013 Medical TABDIS, ONCE, Center Dosing Weight 86.364, kg, Priority: STAT, Start date: 07/12/13 6:56:00, Stop date: 07/12/13 6:56:00 Levemir 10 unit, 0.1 Inactive [place] 07/12[facility] mL, Route: 2013 Medical SUB-Q, Drug Center form: INJ, ONCE, Dosing Weight 86.364, kg, Start date: 07/12/13 4:20:00, Stop date: 07/12/13 4:20:00Same as Levemir "single patient use only" Omnipaque 100 mL, Route: Inactive [place] 07/12[facility] 350mg/ml IVP, Drug 2012 Medical Form: SOLN, Center Dosing Weight 86.364, kg, ONCALL, STAT, Start date: 07/12/13 4:18:00, Duration: 1 doses or times, Dose=2.2ml/kg, Max [id number] -- "To be infused by Radiology Staff ONLY"
Dose =2.2ml/kg, Max [id number] -- "To be infused by Radiology Staff ONLY"(Same as:Omnipaque 350). Sodium Chloride 1,000 mL, Inactive [facility] 0.9% (Bolus) IV Rate: 1,000 2012 Medical 1,000 mL ml/hr, Infuse Center over: 1 hr, Route: IV, Dosing Weight 86.364 kg, Total Volume: 1,000, Priority: STAT, Start date: 07/12/13 4:06:00, Duration: 1 doses or times, Stop date: 07/12/13 5:05:00, Bolus Dose
Bolus Dose Sodium Chloride 1,000 mL, Inactive [facility] 0.9% (Bolus) IV Rate: 1,000 2012 Medical 1,000 mL ml/hr, Infuse Center over: 1 hr, Route: IV, Dosing Weight 86.364 kg, Total Volume: 1,000, Priority: STAT, Start date: 07/12/13 3:39:00, Duration: 1 doses or times, Stop date: 07/12/13 4:38:00, Bolus Dose
Bolus Dose Phenergan 12.5 mg, 0.5 Inactive [facility] mL, Route: 2012 [facility] IVPB, Drug Center form: INJ, ONCE, Dosing Weight 86.364, kg, Priority: STAT, Start date: 07/12/13 3:38:00, Stop date: 07/12/13 3:38:00Do not give IV push. (Same as: Phenergan) GI cocktail 30 mL, Route: Inactive [facility] PO, Drug Form: 2012 Medical SUSP, Dosing Center Weight 86.364, kg, ONCE, STAT, Start date: 07/12/13 3:37:00, Stop date: 07/12/13 3:37:00G.I. Cocktail=antac id with simethicone 22.5 mL - lidocaine viscous 7.5 mL aspirin 325 mg 325 mg, 1 tab, PO No Longer O[facility] tablet, enteric Route: PO, Active 2012 Medical coated Drug form: [place] ECTAB, Daily, Dosing Weight 90, kg, Start date: 04/03/13 9:00:00, Duration: 30 day, Stop date: 05/02/13 9:00:00 Effient 10 mg, 1 tab, PO No Longer [facility] Route: PO, Active 2012 Medical Drug form: [place] TAB, Daily, Dosing Weight 90, kg, Start date: 04/03/13 9:00:00, Duration: 30 day, Stop date: 05/02/13 9:00:00 Lyrica 150 mg, 2 cap, PO No Longer [facility] Route: PO, Active 2012 Medical Drug form: [place] CAP, BID, Dosing Weight 90, kg, Start date: 04/03/13 9:00:00, Duration: 30 day, Stop date: 05/02/13 17:00:00 Protonix 40 mg, 1 tab, PO No Longer [facility] Route: PO, Active 2012 Medical Drug form: [place] ECTAB, BID, Dosing Weight 90, kg, Start date: 04/03/13 9:00:00, Duration: 30 day, Stop date: 05/02/13 17:00:00 metoclopramide 10 mg, 1 tab, PO No Longer [facility] [place] 10 mg oral Route: PO, Active 2012 Medical tablet Drug form: [place] TAB, TID, Dosing Weight 90, kg, Start date: 04/03/13 9:00:00, Duration: 30 day, Stop date: 05/02/13 17:00:00 meloxicam 7.5 mg, 1 tab, PO No Longer [facility] Route: PO, Active 2012 Medical Drug form: [place] TAB, BID, Dosing Weight 90, kg, Priority: Routine, Start date: 04/03/13 9:00:00, Duration: 30 day, Stop date: 05/02/13 17:00:00 lisinopril 20 mg, Route: PO No Longer [facility] PO, Drug form: Active 2012 Medical TAB, Daily, Center Dosing Weight 90, kg, Start date: 04/03/13 9:00:00, Duration: 30 day, Stop date: 05/02/13 9:00:00 Levemir 12 unit, SUB-Q No Longer [facility] Route: SUB-Q, Active 2012 Medical BID, Dosing Center Weight 90, kg, Start date: 04/03/13 9:00:00, Duration: 30 day, Stop date: 05/02/13 17:00:00 ferrous sulfate 325 mg, 1 tab, PO No Longer [facility] Route: PO, Active 2012 Medical Drug form: [place] ECTAB, TID, Dosing Weight 90, kg, Start date: 04/03/13 9:00:00, Duration: 30 day, Stop date: 05/02/13 17:00:00 clonazepam 0.5 mg, 1 tab, PO No Longer [facility] Route: PO, Active 2012 Medical Drug form: [place] TAB, TID, Dosing Weight 90, kg, Start date: 04/03/13 9:00:00, Duration: 30 day, Stop date: 05/02/13 17:00:00 NovoLog 6 unit, 0.06 SUB-Q No Longer [facility] [place] mL, Route: Active 2012 Medical SUB-Q, Drug Center form: SOLN, TID-Before Meals, Dosing Weight 90, kg, Start date: 04/03/13 7:30:00, Duration: 30 day, Stop date: 05/02/13 16:30:00 heparin 5000 5,000 unit, 1 SUB-Q No Longer [facility] units/mL mL, Route: Active 2012 Medical injectable SUB-Q, Drug Center solution form: INJ, Q8H, Dosing Weight 90, kg, Start date: 04/03/13 0:00:00, Duration: 30 day, Stop date: 05/02/13 16:00:00 Cymbalta 120 mg, 2 cap, PO No Longer [facility] Route: PO, Active 2012 Medical Drug form: [place] [facility], Bedtime, Dosing Weight 90, kg, Start date: 04/02/13 23:30:00, Duration: 30 day, Stop date: 05/02/13 21:00:00 Zocor 40 mg, 1 tab, PO No Longer Omidvar [facility] Route: PO, Active 2012 Medical Drug form: [place] TAB, Bedtime, Dosing Weight 90, kg, Start date: 04/02/13 21:00:00, Duration: 30 day, Stop date: 05/01/13 21:00:00 Cymbalta 60 mg, 1 cap, PO No Longer Omidvar [facility] Route: PO, Active 2012 Medical Drug form: [place] [facility], Bedtime, Dosing Weight 90, kg, Start date: 04/02/13 21:00:00, Duration: 30 day, Stop date: 05/01/13 21:00:00 magnesium oxide 400 mg, 1 tab, PO No Longer Omidvar [facility] Route: PO, Active 2012 Medical Drug form: [place] TAB, Daily, Dosing Weight 90, kg, Priority: NOW, Start date: 04/02/13 20:45:00, Duration: 30 day, Stop date: 05/02/13 9:00:00 Levemir 12 unit, 0.12 SUB-Q No Longer Omidvar [facility] mL, Route: Active 2012 Medical SUB-Q, Drug Center form: INJ, BID, Dosing Weight 90, kg, Start date: 04/02/13 20:45:00, Duration: 30 day, Stop date: 05/02/13 17:00:00 hydrALAZINE 10 mg, 0.5 mL, IVP No Longer Omidvar [facility] Route: IVP, Active 2012 Medical Drug form: [place] INJ, Q4H, Dosing Weight 90, kg, PRN Hypertension, Start date: 04/02/13 20:37:00, Duration: 30 day, Stop date: 05/02/13 20:36:00 lisinopril 20 mg, 1 tab, PO No Longer Omidvar [facility] Route: PO, Active 2012 Medical Drug form: [place] TAB, Daily, Dosing Weight 90, kg, Start date: 04/02/13 20:30:00, Duration: 30 day, Stop date: 05/02/13 9:00:00 metoprolol 12.5 mg, 1 ea, PO No Longer Omidvar [facility] tartrate Route: PO, Active 2012 Medical Drug form: [place] TAB, BID, Dosing Weight 90, kg, Start date: 04/02/13 20:30:00, Duration: 30 day, Stop date: 05/02/13 17:00:00 insulin aspart 8 unit, 0.08 SUB-Q No Longer Omidvar 04/03/ [facility] mL, Route: Active 2012 Medical SUB-Q, Drug Center form: SOLN, TID-Before Meals, Dosing Weight 90, kg, PRN Blood Glucose Results, Start date: 04/02/13 20:30:00, Duration: 30 day, Stop date: 05/02/13 20:29:00 glucagon 1 mg, Route: IM No Longer Omidvar 04/03/ [facility] IM, Drug form: Active 2012 Medical PDR/INJ, PRN, Center Dosing Weight 90, kg, PRN Blood Glucose Results, Start date: 04/02/13 20:30:00, Duration: 30 day, Stop date: 05/02/13 20:29:00 Dextrose 50% 25 gm, 50 mL, IVP No Longer Omidvar [facility] Syringe Route: IVP, Active 2012 Medical Drug Form: Center INJ, Dosing Weight 90, kg, PRN, PRN Blood Glucose Results, Start date: 04/02/13 20:30:00, Duration: 30 day, Stop date: 05/02/13 20:29:00 Insulin regular 8 unit, Route: SUB-Q No Longer Omidvar [facility] SUB-Q, Active 2012 Medical TID-Before Center Meals, Dosing Weight 90, kg, PRN Blood Glucose Results, Start date: 04/02/13 20:29:00, Duration: 30 day, Stop date: 05/02/13 20:28:00 glucagon 1 mg, Route: IM No Longer Omidvar [facility] IM, PRN, Active 2012 Medical Dosing Weight Center 90, kg, PRN Blood Glucose Results, Start date: 04/02/13 20:29:00, Duration: 30 day, Stop date: 05/02/13 20:28:00 Dextrose 50% 50 mL, Route: IVP No Longer Omidvar 04/03[facility] Syringe IVP, Dosing Active 2012 Medical Weight 90, kg, Center PRN, PRN Blood Glucose Results, Start date: 04/02/13 20:29:00, Duration: 30 day, Stop date: 05/02/13 20:28:00 Zofran 4 mg, 2 mL, IV No Longer Omidvar [facility] Route: IV, Active 2012 Medical Drug form: Center INJ, Q8H, Dosing Weight 90, kg, PRN Nausea, Start date: 04/02/13 20:29:00, Duration: 30 day, Stop date: 05/02/13 20:28:00 Maalox Advanced 30 mL, Route: PO No Longer Omidvar [facility] Regular Strength PO, Drug Form: Active 2012 Medical SUSP SUSP, Dosing Center Weight 90, kg, QID, PRN Indigestion, Start date: 04/02/13 20:28:00, Duration: 30 day, Stop date: 05/02/13 20:27:00 Flexeril 10 mg, 1 tab, PO No Longer Omidvar [facility] Route: PO, Active 2012 Medical Drug form: Center TAB, TID, Dosing Weight 90, kg, PRN Spasm, Start date: 04/02/13 20:22:00, Duration: 30 day, Stop date: 05/02/13 20:21:00 acetaminophen-hy 1 tab, Route: PO No Longer Omidvar [facility] drocodone 325 PO, Drug Form: Active 2012 Medical mg-5 mg oral TAB, Dosing Center tablet Weight 90, kg, Q4H, PRN Pain, Start date: 04/02/13 20:22:00, Duration: 30 day, Stop date: 05/02/13 20:21:00 Phenergan 12.5 mg, 0.5 IVPB No Longer Mitch [facility] mL, Route: Active 2012 Medical IVPB, Drug Center form: INJ, ONCE, Dosing Weight 90, kg, Start date: 04/02/13 20:11:00, Stop date: 04/02/13 20:11:00 morphine Sulfate 4 mg, 1 mL, IVP No Longer Mitch 04/03[facility] Route: IVP, Active 2012 Medical Drug form: Center INJ, ONCE, Dosing Weight 90, kg, Start date: 04/02/13 20:10:00, Stop date: 04/02/13 20:10:00 Phenergan 12.5 mg, 0.5 IVPB No Longer Zhang [facility] mL, Route: Active 2012 Medical IVPB, Drug Center form: INJ, ONCE, Dosing Weight 90, kg, Priority: STAT, Start date: 04/02/13 17:11:00, Stop date: 04/02/13 17:11:00 Zofran 4 mg, 2 mL, IVP No Longer Zhang [facility] Route: IVP, Active 2012 Medical Drug form: [place] INJ, ONCE, Dosing Weight 90, kg, Priority: STAT, Start date: 04/02/13 16:52:00, Stop date: 04/02/13 16:52:00 nitroglycerin 0.4 mg, 1 tab, SL No Longer Kiki [facility] Route: SL, Active 2012 Medical Drug form: [place] TAB, Q5Min, Dosing Weight 90, kg, PRN Chest Pain, Priority: STAT, Start date: 04/02/13 16:31:00, Duration: 3 doses or times, Stop date: Limited # of times aspirin 325 mg, 1 tab, PO No Longer Kiki [facility] Route: PO, Active 2012 Medical Drug form: [place] ECTAB, ONCE, Dosing Weight 90, kg, Priority: STAT, Start date: 04/02/13 16:31:00, Stop date: 04/02/13 16:31:00 morphine Sulfate 4 mg, 1 mL, IVP No Longer Kiki [facility] Route: IVP, Active 2012 Medical Drug form: [place] INJ, ONCE, Dosing Weight 90, kg, Start date: 04/02/13 16:30:00, Stop date: 04/02/13 16:30:00 erythromycin 250 1 cap, PO, PO Active Osuagwu [facility] mg oral enteric Q12H, 14 cap, 2012 Medical coated tablet Substitution Center Allowed, ECTAB GI cocktail 30 ml, Route: PO No Longer Osuagwu [facility] PO, Drug Form: Active 2012 Medical SUSP, Dosing Center Weight 90, kg, ONCE, Routine, Start date: 03/08/13 16:26:00, Stop date: 03/08/13 16:26:00 erythromycin 250 250 mg, 1 cap, PO No Longer Osuagwu [facility] mg oral enteric Route: PO, Active 2012 Medical coated tablet Drug form: [place] ECCAP, Q12H, Dosing Weight 90, kg, Start date: 03/08/13 12:00:00, Duration: 30 day, Stop date: 04/07/13 9:00:00 magnesium 2 gm, 50 mL, IVPB No Longer Osuagwu [facility] sulfate Route: IVPB, Active 2012 Medical Drug form: [place] INJ, Q2H, Dosing Weight 90, kg, Total Dose=4 gm, Start date: 03/08/13 12:00:00, Duration: 2 doses or times, Stop date: 03/08/13 14:00:00, For Mg=1.5 - 1.7 mg/dL
For Mg=1.5 - 1.7 mg/dL insulin aspart 5 unit, 0.05 SUB-Q No Longer Cam[place]lu [facility] mL, Route: Active 2012 Medical SUB-Q, Drug Center form: SOLN, ONCE, Dosing Weight 90, kg, Start date: 03/08/13 3:17:00, Stop date: 03/08/13 3:17:00 Zocor 40 mg, 1 tab, PO No Longer [facility] 03/08[facility] Route: PO, Active 2012 Medical Drug form: [place] TAB, Bedtime, Dosing Weight 90, kg, Start date: 03/07/13 21:00:00, Duration: 30 day, Stop date: 04/05/13 21:00:00 Cymbalta 120 mg, 2 cap, PO No Longer Talon [facility] Route: PO, Active 2012 Medical Drug form: [place] [facility], Bedtime, Dosing Weight 90, kg, Start date: 03/07/13 21:00:00, Duration: 30 day, Stop date: 04/05/13 21:00:00 Levemir 12 unit, 0.12 SUB-Q No Longer Osu[facility]wu 03/08[facility] mL, Route: Active 2012 Medical SUB-Q, Drug Center form: INJ, Q12H, Dosing Weight 90, kg, Start date: 03/07/13 21:00:00, Duration: 30 day, Stop date: 04/06/13 9:00:00 insulin aspart 10 unit, 0.1 SUB-Q No Longer [facility] 03/08[facility] mL, Route: Active 2012 Medical SUB-Q, Drug Center form: SOLN, ONCE, Dosing Weight 90, kg, Start date: 03/07/13 19:16:00, Stop date: 03/07/13 19:16:00 Lyrica 150 mg, 2 cap, PO No Longer Talon [facility] Route: PO, Active 2012 Medical Drug form: [place] CAP, BID, Dosing Weight 90, kg, Start date: 03/07/13 17:00:00, Duration: 30 day, Stop date: 04/06/13 9:00:00 Protonix 40 mg, 1 tab, PO No Longer Talon [facility] Route: PO, Active 2012 Medical Drug form: Center ECTAB, BID, Dosing Weight 90, kg, Start date: 03/07/13 17:00:00, Duration: 30 day, Stop date: 04/06/13 9:00:00 meloxicam 7.5 mg, 1 tab, PO No Longer Talon [facility] Route: PO, Active 2012 Medical Drug form: Center TAB, BID-Meals, Dosing Weight 90, kg, Start date: 03/07/13 17:00:00, Duration: 30 day, Stop date: 04/06/13 8:00:00 Flexeril 10 mg, 1 tab, PO No Longer Talon [facility] Route: PO, Active 2012 Medical Drug form: Center TAB, BID, Dosing Weight 90, kg, Start date: 03/07/13 17:00:00, Duration: 30 day, Stop date: 04/06/13 9:00:00 NovoLog FlexPen 6 unit, 0.06 SUB-Q No Longer Osuagwu [facility] mL, Route: Active 2012 Medical SUB-Q, Drug Center form: SOLN, TID-Before Meals, Start date: 03/07/13 16:30:00, Duration: 30 day, Stop date: 04/06/13 11:30:00 Humalog 6 unit, Route: SUB-Q No Longer Talon [facility] SUB-Q, Active 2012 Medical TID-Before Center Meals, Dosing Weight 90, kg, Start date: 03/07/13 16:30:00, Duration: 30 day, Stop date: 04/06/13 11:30:00 heparin 5,000 unit, 1 SUB-Q No Longer Talon [facility] mL, Route: Active 2012 Medical SUB-Q, Drug Center form: INJ, Q8H, Dosing Weight 90, kg, Start date: 03/07/13 16:00:00, Duration: 30 day, Stop date: 04/06/13 8:00:00 Effient 10 mg, 1 tab, PO No Longer Talon [facility] Route: PO, Active 2012 Medical Drug form: Center TAB, Daily, Dosing Weight 90, kg, Start date: 03/07/13 13:30:00, Duration: 30 day, Stop date: 04/06/13 9:00:00 magnesium oxide 400 mg, 1 tab, PO No Longer Talon [facility] Route: PO, Active 2012 Medical Drug form: Center TAB, Daily, Dosing Weight 90, kg, Start date: 03/07/13 13:30:00, Duration: 30 day, Stop date: 04/06/13 9:00:00 lisinopril 20 mg, 1 tab, PO No Longer Talon [facility] Route: PO, Active 2012 Medical Drug form: Center TAB, Daily, Dosing Weight 90, kg, Start date: 03/07/13 13:30:00, Duration: 30 day, Stop date: 04/06/13 9:00:00 Reglan 5 mg, 1 tab, PO No Longer Talon [facility] Route: PO, Active 2012 Medical Drug form: [place] TAB, TID, Dosing Weight 90, kg, Start date: 03/07/13 13:00:00, Duration: 30 day, Stop date: 04/06/13 9:00:00 ferrous sulfate 325 mg, 1 tab, PO No Longer Talon [facility] Route: PO, Active 2012 Medical Drug form: [place] ECTAB, TID, Dosing Weight 90, kg, Start date: 03/07/13 13:00:00, Duration: 30 day, Stop date: 04/06/13 9:00:00 clonazepam 0.5 mg, 1 tab, PO No Longer Talon [facility] Route: PO, Active 2012 Medical Drug form: [place] TAB, TID, Dosing Weight 90, kg, Start date: 03/07/13 13:00:00, Duration: 30 day, Stop date: 04/06/13 9:00:00 NovoLog 6 unit, SUB-Q, SUB-Q No Longer [facility] TID-Before Active 2012 [facility] Meals, Center Substitution Allowed Levemir 12 unit, SUB-Q Active [place] SUB-Q, BID, 2012 Medical Substitution Center Allowed NS 1,000 mL 1,000 mL, IV No Longer Talon [facility] Rate: 125 Active 2012 Medical ml/hr, Infuse Center over: 8 hr, Route: IV, Dosing Weight 90 kg, Total Volume: 1,000, Start date: 03/07/13 12:19:00, Duration: 30 day, Stop date: 04/06/13 12:18:00 insulin aspart 2 unit, 0.02 SUB-Q No Longer Talon [facility] mL, Route: Active 2012 Medical SUB-Q, Drug Center form: SOLN, TID-Before Meals, Dosing Weight 90, kg, PRN Blood Glucose Results, Start date: 03/07/13 11:55:00, Duration: 30 day, Stop date: 04/06/13 11:54:00 glucagon 1 mg, Route: IM No Longer Talon [facility] IM, Drug form: Active 2012 Medical PDR/INJ, PRN, Center Dosing Weight 90, kg, PRN Blood Glucose Results, Start date: 03/07/13 11:55:00, Duration: 30 day, Stop date: 04/06/13 11:54:00 Dextrose 50% 12.5 gm, 25 IVP No Longer Talon [facility] Syringe mL, Route: Active 2012 Medical IVP, Drug Center Form: INJ, Dosing Weight 90, kg, PRN, PRN Blood Glucose Results, Start date: 03/07/13 11:55:00, Duration: 30 day, Stop date: 04/06/13 11:54:00 Phenergan 12.5 mg, 0.5 IVPB No Longer Talon [facility] mL, Route: Active 2012 Medical IVPB, Drug Center form: INJ, Q4H, Dosing Weight 90, kg, PRN Nausea & Vomiting, Start date: 03/07/13 11:53:00, Duration: 30 day, Stop date: 04/06/13 11:52:00 albuterol 0.083% 2.49 mg, 3 mL, NEB No Longer Talon [facility] inhalation Route: NEB, Active 2012 Medical solution Drug form: Center SOLN, RQ4H, Dosing Weight 90, kg, PRN as needed for wheezing, Start date: 03/07/13 11:53:00, Duration: 30 day, Stop date: 04/06/13 11:52:00 Zofran 4 mg, 2 mL, IVP No Longer Talon [facility] Route: IVP, Active 2012 Medical Drug form: Center INJ, Q4H, Dosing Weight 90, kg, PRN Nausea, Start date: 03/07/13 11:53:00, Duration: 30 day, Stop date: 04/06/13 11:52:00 acetaminophen-hy 1 tab, Route: PO No Longer Talon [facility] drocodone 325 PO, Drug Form: Active 2012 Medical mg-10 mg oral TAB, Dosing Center tablet Weight 90, kg, Q4H, PRN Pain Score 4-6, Start date: 03/07/13 11:51:00, Duration: 30 day, Stop date: 04/06/13 11:50:00 acetaminophen-hy 1 tab, Route: PO No Longer Talon [facility] drocodone 325 PO, Drug Form: Active 2012 Medical mg-5 mg oral TAB, Dosing Center tablet Weight 90, kg, Q4H, PRN Pain Score 1-3, Start date: 03/07/13 11:51:00, Duration: 30 day, Stop date: 04/06/13 11:50:00 acetaminophen 650 mg, 2 tab, PO No Longer Talon [facility] Route: PO, Active 2012 Medical Drug form: Center TAB, Q4H, Dosing Weight 90, kg, PRN Pain 1-3/Temp > 100.4 F, Start date: 03/07/13 11:51:00, Duration: 30 day, Stop date: 04/06/13 11:50:00 morphine Sulfate 2 mg, 1 mL, IVP No Longer Talon [facility] Route: IVP, Active 2012 Medical Drug form: Center INJ, Q4H, Dosing Weight 90, kg, PRN Pain Score 7-10, Start date: 03/07/13 11:51:00, Duration: 30 day, Stop date: 04/06/13 11:50:00 docusate 100 mg, 1 cap, PO No Longer Talon [facility] Route: PO, Active 2012 Medical Drug form: Center CAP, BID, Dosing Weight 90, kg, PRN Constipation, Start date: 03/07/13 11:51:00, Duration: 30 day, Stop date: 04/06/13 11:50:00 Levemir 12 unit, 0.12 SUB-Q No Longer Chambers [facility] mL, Route: Active 2012 Medical SUB-Q, Drug Center form: INJ, ONCE, Dosing Weight 90, kg, Start date: 03/07/13 6:10:00, Stop date: 03/07/13 6:10:00 lidocaine-epi 1 ml, Route: SUB-Q No Longer Kiki [facility] [id number] SUB-Q, Drug Active 2012 Medical Form: SOLN, [place] Dosing Weight 90, kg, ONCE, STAT, Start date: 03/07/13 5:18:00, Stop date: 03/07/13 5:18:00 Insulin regular 99 mL, Rate: IVPB No Longer Kiki [facility] 100 unit + Start Insulin Active 2012 Medical Sodium Chloride Drip Per ICU Center 0.9% (titrate) Protocol, 99 mL Dosing Weight 90, kg, Route: IVPB, Total Volume: 100, Duration: 30 day, Stop date: 04/06/13 5:14:00, Replace Every: 24 hr, Initial Insulin Drip Rate (units/hour)=( Fasting Blood Glucose-60)X0. 03 "multip...<br/ >Initial Insulin Drip Rate (units/hour)=( Fasting Blood Glucose-60)X0. 03 "multiplier". Dextrose 50% 12.5 gm, 25 IVP No Longer Kiki [facility] Syringe mL, Route: Active 2012 Medical IVP, Drug Center Form: INJ, Dosing Weight 90, kg, PRN, PRN Blood Glucose Results, Start date: 03/07/13 5:13:00, Duration: 30 day, Stop date: 04/06/13 5:12:00 NS (Bolus) IV 1,000 mL, IV No Longer Kiki [facility] 1,000 mL Rate: 1,000 Active 2012 Medical ml/hr, Infuse Center over: 1 hr, Route: IV, Dosing Weight 90 kg, Total Volume: 1,000, Priority: STAT, Start date: 03/07/13 2:36:00, Duration: 1 doses or times, Stop date: 03/07/13 3:35:00, Bolus Dose
Bolus Dose magnesium 2 gm, 50 mL, IVPB No Longer Kiki [place] sulfate Route: IVPB, 2012 Medical Drug form: Center INJ, ONCE, Dosing Weight 90, kg, Start date: 03/07/13 2:35:00, Stop date: 03/07/13 2:35:00 Insulin regular 10 unit, 0.1 SUB-Q No Longer Kiki [place] mL, Route: 2012 Medical SUB-Q, Drug Center form: SOLN, ONCE, Dosing Weight 90, kg, Priority: STAT, Start date: 03/07/13 2:16:00, Stop date: 03/07/13 2:16:00 Reglan 10 mg, 2 mL, IVP No Longer Kiki [facility] Route: IVP, 2012 Medical Drug form: Center INJ, ONCE, Dosing Weight 90, kg, Priority: STAT, Start date: 03/07/13 2:16:00, Stop date: 03/07/13 2:16:00 NS 1,000 mL 1,000 mL, IV No Longer Talon [place] Rate: 150 2012 Medical ml/hr, Infuse Center over: 6.7 hr, Route: IV, Dosing Weight 90 kg, Total Volume: 1,000, Start date: 03/07/13 2:15:00, Duration: 30 day, Stop date: 04/06/13 2:14:00 droperidol 1.25 mg, IVP No Longer Kiki [facility] Route: IVP, Active 2012 Medical ONCE, Dosing Center Weight 90, kg, PRN Nausea & Vomiting, Start date: 03/07/13 0:48:00 D5W 1/2NS 1,000 1,000 mL, IV No Longer Kiki [place] mL Rate: 125 2012 Medical ml/hr, Infuse Center over: 8 hr, Route: IV, Dosing Weight 90 kg, Total Volume: 1,000, Start date: 03/07/13 0:43:00, Duration: 30 day, Stop date: 04/06/13 0:42:00 Insulin regular 4 unit, 0.04 SUB-Q No Longer Kiki [place] mL, Route: Active 2012 Medical SUB-Q, Drug Center form: SOLN, Sliding Scale, Dosing Weight 90, kg, PRN Blood Glucose Results, Start date: 03/07/13 0:01:00, Duration: 30 day, Stop date: 04/06/13 0:00:00 glucagon 1 mg, Route: IM No Longer Kiki [place] IM, Drug form: Active 2012 Medical PDR/INJ, PRN, Center Dosing Weight 90, kg, PRN Blood Glucose Results, Start date: 03/07/13 0:01:00, Duration: 30 day, Stop date: 04/06/13 0:00:00 Dextrose 50% 25 gm, 50 mL, IVP No Longer Kiki [place] Syringe Route: IVP, Active 2012 Medical Drug Form: Center INJ, Dosing Weight 90, kg, PRN, PRN Blood Glucose Results, Start date: 03/07/13 0:01:00, Duration: 30 day, Stop date: 04/06/13 0:00:00 NS 1,000 mL 1,000 mL, IV No Longer Kiki [place] Rate: 125 2012 Medical ml/hr, Infuse Center over: 8 hr, Route: IV, Dosing Weight 90 kg, Total Volume: 1,000, Start date: 03/06/13 23:21:00, Duration: 30 day, Stop date: 04/05/13 23:20:00 NS (Bolus) IV 1,000 mL, IV No Longer Kiki [facility] 1,000 mL Rate: 1,000 2012 Medical ml/hr, Infuse Center over: 1 hr, Route: IV, Dosing Weight 90 kg, Total Volume: 1,000, Priority: STAT, Start date: 03/06/13 23:21:00, Duration: 1 doses or times, Stop date: 03/07/13 0:20:00, Bolus Dose
Bolus Dose Mark 5/325 oral 1 tab, PO, PO No Longer [place] tablet Q6H, PRN, 30 2012 Medical tab, Center Substitution Allowed, Maintenance ferrous sulfate 325 mg, 1 tab, PO Active [place] [facility] 325 mg oral PO, TID, 30 2012 Medical enteric coated tab, [place] tablet Substitution Allowed, ECTAB acetaminophen-hy 1 tab, PO, PO Active [facility] drocodone 500 Q4H, PRN, for 2012 Medical mg-7.5 mg oral pain, [place] tablet Substitution Allowed, Maintenance, TAB meloxicam 7.5 mg 7.5 mg, 1 tab, PO Active [place] [facility] oral tablet PO, BID, WITH 2012 Medical FOOD, 30 tab, [place] Substitution Allowed, TAB
WITH FOOD Zocor 40 mg oral 40 mg, 1 tab, PO Active [place] 03/07[facility] tablet PO, Bedtime, 2012 Medical 30 tab, Center Substitution Allowed, Maintenance ProAir HFA 90 Substitution Active [facility] mcg/inh Allowed, 2012 Medical inhalation Maintenance Center aerosol with adapter Flexeril 10 mg 10 mg, 1 tab, PO Active [place] [facility] oral tablet PO, TID, PRN, 2012 Medical 30 tab, for Center spasm, Substitution Allowed, TAB Protonix 40 mg 40 mg, 1 tab, PO Active [place] [facility] oral enteric PO, BID, 30 2012 Medical coated tablet tab, [place] Substitution Allowed, ECTAB Lyrica 150 mg 150 mg, 1 cap, PO Active [place] [facility] oral capsule PO, BID, 90 2012 Medical cap, [place] Substitution Allowed, CAP Flagyl 500 mg 500 mg, 1 tab, PO No Longer [facility] oral tablet PO, Q6H, 30 Active 2012 Medical tab, [place] Substitution Allowed metoclopramide 10 mg, 1 tab, PO Active [place] 03/07[facility] 10 mg oral PO, TID, 56 2012 Medical tablet tab, Center Substitution Allowed, TAB NS (Bolus) IV 1,000 mL, IV No Longer Kiki [facility] 1,000 mL Rate: 1,000 Active 2012 Medical ml/hr, Infuse [place] over: 1 hr, Route: IV, Dosing Weight 90 kg, Total Volume: 1,000, Priority: STAT, Start date: 03/06/13 21:27:00, Duration: 1 doses or times, Stop date: 03/06/13 22:26:00, Bolus Dose
Bolus Dose morphine Sulfate 4 mg, 1 mL, IVP No Longer Kiki [facility] Route: IVP, Active 2012 Medical Drug form: Center INJ, ONCE, Dosing Weight 90, kg, Start date: 03/06/13 21:27:00, Stop date: 03/06/13 21:27:00 Phenergan 12.5 mg, 0.5 IVPB No Longer Kiki [facility] mL, Route: Active 2012 Medical IVPB, Drug Center form: INJ, ONCE, Dosing Weight 90, kg, Priority: STAT, Start date: 03/06/13 21:26:00, Stop date: 03/06/13 21:26:00 ergocalciferol 50,000 PO No Longer [place] [facility] IntlUnit, 1 Active 2012 Medical cap, Route: Center PO, Drug form: CAP, qWeek, Dosing Weight 100, kg, Start date: 12/07/12 9:00:00, Duration: 30 day, Stop date: 01/04/13 9:00:00 erythromycin 250 mg, 1 tab, PO Active [facility] stearate 250 mg PO, Q6H, 56 2012 Medical oral tablet tab, Center Substitution Allowed, TAB Protonix 40 mg 40 mg, 1 tab, PO Active [facility] oral enteric PO, Daily, 30 2012 Medical coated tablet tab, Center Substitution Allowed, ECTAB pravastatin 80 80 mg, 1 tab, PO Active [facility] mg oral tablet PO, Daily, 30 2012 Medical tab, Center Substitution Allowed, TAB insulin detemir 14 unit, 0.14 SUB-Q Active [facility] 100 units/mL mL, SUB-Q, 2012 Medical subcutaneous Bedtime, 100 Center solution mL, Substitution Allowed, INJ insulin detemir 16 unit, 0.16 SUB-Q Active [facility] 100 units/mL mL, SUB-Q, 2012 Medical subcutaneous Daily, 100 mL, Center solution Substitution Allowed, INJ Protonix 40 mg, Route: IVP No Longer [place] [facility] IVP, Drug Active 2012 Medical form: INJ, Center Daily, Dosing Weight 100, kg, Priority: NOW, Start date: 12/06/12 16:52:00, Duration: 30 day, Stop date: 01/05/13 9:00:00 insulin detemir 16 unit, 0.16 SUB-Q No Longer [place] [facility] mL, Route: Active 2012 Medical SUB-Q, Drug Center form: INJ, Daily, Dosing Weight 100, kg, Start date: 12/06/12 9:00:00, Stop date: 01/04/13 9:00:00 Mark 7.5/325 1 tab, Route: PO No Longer [place] [facility] oral tablet PO, Drug Form: Active 2012 Medical TAB, Dosing Center Weight 100, kg, ONCE, Start date: 12/06/12 [...] 12/05/12 21:00:00, Stop date: 01/03/13 21:00:00 morphine Sulfate 4 mg, 1 mL, IVP No Longer [facility] Route: IVP, Active 2012 Medical Drug form: Center INJ, ONCE, Dosing Weight 100, kg, Start date: 12/05/12 16:51:00, Stop date: 12/05/12 16:51:00 erythromycin + 250 mg, Route: IVPB No Longer [facility] [facility] Sodium Chloride IVPB, Q8H, Active 2012 Medical 0.9% IV 100 mL Dosing Weight Center 100, kg, Start date: 12/05/12 16:00:00, Duration: 30 day, Stop date: 01/04/13 8:00:00 potassium 20 mEq, 100 IVPB No Longer [facility] chloride mL, Route: Active 2012 Medical IVPB, Q2H, Center Start date: 12/05/12 8:00:00, Stop date: 12/05/12 11:00:00 NS + KCL 20mEq/L 1,000 mL, IV No Longer [facility]ando [facility] 1000ml (Premix) Rate: 125 Active 2012 Medical 1,000 mL ml/hr, Infuse Center over: 8 hr, Route: IV, kg, Total Volume: 1,000, Start date: 12/05/12 7:21:00, Duration: 30 day, Stop date: 01/04/13 7:20:00 potassium 40 mEq, Route: IVPB No Longer [facility] chloride IVPB, ONCE, Active 2012 Medical Dosing [facility] 100, kg, Start date: 12/05/12 7:21:00, Stop date: 12/05/12 7:21:00 GI cocktail 30 ml, Route: PO No Longer [facility] Fei PO, Drug Form: Active 2012 Medical SUSP, Dosing Center Weight 100, kg, ONCE, Routine, Start date: 12/04/12 23:39:00, Stop date: 12/04/12 23:39:00 potassium 20 mEq, 100 IVPB No Longer [facility] Fei chloride mL, Route: Active 2012 Medical IVPB, Q2H, Center Start date: 12/04/12 10:00:00, Duration: 2 doses or times, Stop date: 12/04/12 12:00:00 Protonix 40 mg, 1 tab, PO No Longer Brando Fei Route: PO, 2012 Medical Drug form: [place] ECTAB, Daily, Dosing Weight 100, kg, Start date: 12/04/12 9:00:00, Duration: 30 day, Stop date: 01/02/13 9:00:00 potassium 40 mEq, Route: IV No Longer Brando Fei chloride IV, ONCE, Active 2012 Medical Dosing Weight Center 100, kg, Start date: 12/04/12 8:20:00, Stop date: 12/04/12 8:20:00 Phenergan 25 mg, 1 supp, MA No Longer Brando Fei Route: MA, 2012 Medical Drug form: Center SUPP, Q4H, Dosing Weight 100, kg, PRN Nausea & Vomiting, Start date: 12/04/12 7:58:00, Duration: 30 day, Stop date: 01/03/13 7:57:00 Dextrose 50% 25 gm, 50 mL, IVP No Longer Brando [place] Syringe Route: IVP, Active 2012 Medical Drug Form: Center INJ, Dosing Weight 100, kg, PRN, PRN Blood Glucose Results, Start date: 12/04/12 7:48:00, Duration: 30 day, Stop date: 01/03/13 7:47:00 glucagon 1 mg, Route: IM No Longer Brando [place] IM, Drug form: Active 2012 Medical PDR/INJ, PRN, Center Dosing Weight 100, kg, PRN Blood Glucose Results, Start date: 12/04/12 7:48:00, Duration: 30 day, Stop date: 01/03/13 7:47:00 insulin aspart 4 unit, 0.04 SUB-Q No Longer [place] mL, Route: Active 2012 Medical SUB-Q, Drug Center form: SOLN, Bedtime, Dosing Weight 100, kg, PRN Blood Glucose Results, Start date: 12/04/12 7:48:00, Duration: 30 day, Stop date: 01/03/13 7:47:00 Protonix 40 mg, Route: IV No Longer [facility] [place] IV, Drug form: Active 2012 Medical INJ, ONCE, Center Dosing Weight 100, kg, Start date: 12/04/12 3:12:00, Stop date: 12/04/12 3:12:00 potassium 20 mEq, 100 IVPB No Longer Br[facility] chloride mL, Route: Active 2012 Medical IVPB, Q2H, Center Start date: 12/03/12 8:00:00, Stop date: 12/03/12 11:00:00 potassium 40 mEq, Route: IV No Longer [facility] chloride IV, ONCE, Active 2012 Medical Dosing Weight [facility] 100, kg, Start date: 12/03/12 7:02:00, Stop date: 12/03/12 7:02:00 NS 1,000 mL 1,000 mL, IV No Longer [facility] Rate: 125 Active 2012 Medical ml/hr, Infuse Center over: 8 hr, Route: IV, kg, Total Volume: 1,000, Start date: 12/02/12 16:54:00, Duration: 30 day, Stop date: 01/01/13 16:53:00 NS (Bolus) IV 1,000 mL, IV No Longer [facility] 1,000 mL Rate: 1,000 Active 2012 Medical ml/hr, Infuse Center over: 1 hr, Route: IV, kg, Total Volume: 1,000, Priority: STAT, Start date: 12/02/12 13:12:00, Duration: 1 doses or times, Stop date: 12/02/12 14:11:00, Bolus Dose
Sukh marie Dose NS (Bolus) IV 1,000 mL, IV No Longer Brando [facility] 1,000 mL Rate: 1,000 Active 2012 Medical ml/hr, Infuse Center over: 1 hr, Route: IV, kg, Total Volume: 1,000, Priority: STAT, Start date: 12/02/12 12:10:00, Duration: 1 doses or times, Stop date: 12/02/12 13:09:00, Bolus Dose
Sukh marie Dose insulin detemir 20 unit, 0.2 SUB-Q No Longer [place] [facility] mL, Route: Active 2012 Medical SUB-Q, Drug Center form: INJ, BID, Dosing Weight 100, kg, Start date: 12/02/12 9:00:00, Duration: 30 day, Stop date: 12/31/12 21:00:00 calcium chloride 1,000 mg, 10 IVPB No Longer [facility] + Sodium mL, Route: Active 2012 Medical Chloride 0.9% IV IVPB, ONCE, Center 100 mL Start date: 12/02/12 5:08:00, Stop date: 12/02/12 5:08:00 ceftriaxone 1 gm, Route: IVPB No Longer [facility] IVPB, Drug Active 2012 Medical form: PDR/INJ, Center [id number], Dosing Weight 100, kg, Start date: 12/02/12 5:00:00, Duration: 30 day, Stop date: 12/31/12 5:00:00 calcium 1,000 mg, IVPB No Longer [facility] gluconate Route: IVPB, Active 2012 Medical Drug form: Center INJ, ONCE, Dosing Weight 100, kg, Start date: 12/02/12 5:00:00, Stop date: 12/02/12 5:00:00 Dextrose 50% 25 mL, Route: IVP No Longer [place] [facility] Syringe IVP, Dosing Active 2012 Medical Weight 100, Center kg, PRN, PRN Blood Glucose Results, Start date: 12/02/12 4:51:00, Duration: 30 day, Stop date: 01/01/13 4:50:00 Insulin regular 100 mL, Rate: IVPB No Longer [facility] 100 unit + Start Insulin Active 2012 Medical Sodium Chloride Drip Per ICU Center 0.9% (titrate) Protocol, 100 mL Dosing Weight 100, kg, Route: IVPB, Total Volume: 100, Duration: 30 day, Stop date: 01/01/13 4:51:00, Replace Every: 24 hr, Initial Insulin Drip Rate (units/hour)=( Fasting Blood Glucose-60)X0. 03 "mult...
I nitial Insulin Drip Rate (units/hour)=( Fasting Blood Glucose-60)X0. 03 "multiplier". Zofran 4 mg, Route: IVP No Longer [facility] IVP, Drug Active 2012 Medical form: INJ, Center ONCE, Dosing Weight 100, kg, Priority: STAT, Start date: 12/02/12 4:47:00, Stop date: 12/02/12 4:47:00 normal saline 1,000 mL, IV No Longer [facility] 0.9% IV 1,000 mL Rate: 1,000 Active 2012 Medical ml/hr, Infuse Center over: 1 hr, Route: IV, kg, Total Volume: 1,000, Start date: 12/02/12 3:19:00, Duration: 1 doses or times, Stop date: 12/02/12 4:18:00 Insulin regular 6 unit, 0.06 IV No Longer [facility] mL, Route: IV, Active 2012 Medical Drug form: Center SOLN, ONCE, Dosing Weight 100, kg, Priority: STAT, Start date: 12/02/12 3:19:00, Stop date: 12/02/12 3:19:00 insulin aspart 3 unit, 0.03 SUB-Q No Longer [facility]ando [facility] mL, Route: Active 2012 Medical SUB-Q, Drug Center form: SOLN, Bedtime, Dosing Weight 100, kg, PRN Blood Glucose Results, Start date: 12/01/12 13:23:00, Duration: 30 day, Stop date: 12/31/12 13:22:00 NS 1,000 mL 1,000 mL, IV No Longer [facility]ando [facility] Rate: 150 Active 2012 Medical ml/hr, Infuse Center over: 6.7 hr, Route: IV, kg, Total Volume: 1,000, Priority: NOW, Start date: 12/01/12 13:10:00, Duration: 1 doses or times, Stop date: 12/01/12 19:51:00 Insulin regular 2 unit, 0.02 SUB-Q No Longer [facility]ando [facility] mL, Route: Active 2012 Medical SUB-Q, Drug Center form: SOLN, Bedtime, Dosing Weight 100, kg, PRN Blood Glucose Results, Start date: 12/01/12 13:08:00, Duration: 30 day, Stop date: 12/31/12 13:07:00 insulin aspart 4 unit, 0.04 SUB-Q No Longer [facility] mL, Route: Active 2012 Medical SUB-Q, Drug Center form: SOLN, TID-Before Meals, Dosing Weight 100, kg, PRN Blood Glucose Results, Start date: 12/01/12 13:08:00, Duration: 30 day, Stop date: 12/31/12 13:07:00 Dextrose 50% 25 gm, 50 mL, IVP No Longer Brando [facility] Syringe Route: IVP, Active 2012 Medical Drug Form: Center INJ, Dosing Weight 100, kg, PRN, PRN Blood Glucose Results, Start date: 12/01/12 13:08:00, Duration: 30 day, Stop date: 12/31/12 13:07:00 glucagon 1 mg, Route: IM No Longer [facility]ando [facility] IM, Drug form: Active 2012 Medical PDR/INJ, PRN, Center Dosing Weight 100, kg, PRN Blood Glucose [...] gm, 50 mL, IVPB No Longer [facility] [place] sulfate Route: IVPB, Active 2012 Medical Drug form: Center INJ, Q2H, Dosing Weight 100, kg, Start date: 12/01/12 6:00:00, Duration: 2 doses or times, Stop date: 12/01/12 8:00:00, For Mg=1.5 - 1.7 mg/dL
For Mg=1.5 - 1.7 mg/dL potassium 20 mEq, 100 IVPB No Longer [facility]01[facility] Fei chloride mL, Route: Active 2012 Medical IVPB, Drug Center form: INJ, Q2H, Dosing Weight 100, kg, Total dose=40 mEq, Start date: 12/01/12 6:00:00, Duration: 2 doses or times, Stop date: 12/01/12 8:00:00, For K=3.5 - 3.9 mEq/L
F or K=3.5 - 3.9 mEq/L Dextrose 50% 12.5 gm, 25 IVP No Longer [facility] 12/01[facility] Fei Syringe mL, Route: Active 2012 Medical IVP, Drug Center Form: INJ, Dosing Weight 100, kg, PRN, PRN Blood Glucose Results, Start date: 11/30/12 19:13:00, Duration: 30 day, Stop date: 12/30/12 19:12:00 insulin aspart 1 unit, 0.01 SUB-Q No Longer Brando [place] mL, Route: Active 2012 Medical SUB-Q, Drug Center form: SOLN, Sliding Scale, Dosing Weight 100, kg, PRN Blood Glucose Results, Start date: 11/30/12 18:36:00, Duration: 30 day, Stop date: 12/30/12 18:35:00 insulin detemir 16 unit, 0.16 SUB-Q No Longer [place] [facility] mL, Route: Active 2012 Medical SUB-Q, Drug Center form: INJ, Q12H, Dosing Weight 100, kg, Start date: 11/30/12 14:00:00, Duration: 30 day, Stop date: 12/30/12 9:00:00 Zofran 4 mg, 2 mL, IV No Longer [facility] Route: IV, Active 2012 Medical Drug form: Center INJ, Q6H, Dosing Weight 100, kg, PRN Nausea, Start date: 11/30/12 13:32:00, Duration: 30 day, Stop date: 12/30/12 13:31:00 insulin aspart 10 unit, 0.1 SUB-Q No Longer [facility] mL, Route: Active 2012 Medical SUB-Q, Drug Center form: SOLN, TID-Before Meals, Dosing Weight 100, kg, PRN Blood Glucose Results, Start date: 11/30/12 13:26:00, Duration: 30 day, Stop date: 12/30/12 13:25:00 Zofran 4 mg, 2 mL, IV No Longer [place] [facility] Route: IV, Active 2012 Medical Drug form: [place] INJ, Q8H, Dosing Weight 100, kg, PRN Nausea, Start date: 11/30/12 11:58:00, Duration: 30 day, Stop date: 12/30/12 11:57:00 Zofran 4 mg, 2 mL, IVP No Longer [facility] Route: IVP, Active 2012 Medical Drug form: Center INJ, ONCE, Dosing Weight 100, kg, Priority: NOW, Start date: 11/30/12 11:57:00, Stop date: 11/30/12 11:57:00 potassium 2 pkt, Route: PO No Longer [facility] phosphate-sodium PO, Drug Form: Active 2012 Medical phosphate 250 PDR/REC, ONCE, [place] mg-278 mg-164 mg Start date: oral powder 11/30/12 10:00:00, Stop date: 11/30/12 10:00:00 Dextrose 5% with 1,000 mL, IV No Longer [facility] Fei 0.45% NaCl IV Rate: 150 Active 2012 Medical 1,000 mL ml/hr, Infuse Center over: 6.7 hr, Route: IV, kg, Total Volume: 1,000, Start date: 11/30/12 9:12:00, Duration: 30 day, Stop date: 12/30/12 9:11:00 insulin detemir 16 unit, 0.16 SUB-Q No Longer [place] [facility] mL, Route: Active 2012 Medical SUB-Q, Drug Center form: INJ, Q12H, Dosing Weight 100, kg, Start date: 11/30/12 9:00:00, Duration: 30 day, Stop date: 12/29/12 21:00:00 heparin 5,000 unit, 1 SUB-Q No Longer [place] [facility] mL, Route: Active 2012 Medical SUB-Q, Drug Center form: INJ, Q8H, Dosing Weight 100, kg, Start date: 11/30/12 8:30:00, Duration: 30 day, Stop date: 12/30/12 8:00:00 magnesium 2 gm, Route: IVPB No Longer [facility] [facility] sulfate IVPB, Drug Active 2012 Medical form: INJ, Center ONCE, Dosing Weight 100, kg, Total dose=2 gm, Start date: 11/30/12 8:05:00, Duration: 1 doses or times, Stop date: 11/30/12 8:05:00 potassium 30 mmol, IVPB No Longer [facility] [facility] phosphate Route: IVPB, Active 2012 Medical ONCE, [...] glucagon 1 mg, Route: IM No Longer [facility] [facility] IM, Drug form: Active 2012 Medical PDR/INJ, PRN, Center Dosing Weight 100, kg, PRN Blood Glucose Results, Start date: 11/30/12 7:57:00, Duration: 30 day, Stop date: 12/30/12 7:56:00 Dextrose 50% 25 gm, 50 mL, IVP No Longer [facility] Syringe Route: IVP, Active 2012 Medical Drug Form: Center INJ, Dosing Weight 100, kg, PRN, PRN Blood Glucose Results, Start date: 11/30/12 7:57:00, Duration: 30 day, Stop date: 12/30/12 7:56:00 1/2 NS 1,000 mL 1,000 mL, IV No Longer [facility] Rate: 200 Active 2012 Medical ml/hr, Infuse Center over: 5 hr, Route: IV, kg, Total Volume: 1,000, Start date: 11/30/12 5:30:00, Duration: 30 day, Stop date: 12/30/12 5:29:00 heparin 5000 5,000 unit, 1 SUB-Q No Longer [facility] units/mL mL, Route: Active 2012 Medical injectable SUB-Q, Drug Center solution form: INJ, Q8H, Dosing Weight 100, kg, Start date: 11/30/12 0:00:00, Duration: 30 day, Stop date: 12/29/12 16:00:00 hydrALAZINE 10 mg, 0.5 mL, IV No Longer [facility] Fei Route: IV, Active 2012 Medical Drug form: Center INJ, Q4H, Dosing Weight 100, kg, PRN Hypertension, Start date: 11/29/12 22:56:00, Duration: 30 day, Stop date: 12/29/12 22:55:00 simvastatin 40 mg, 1 tab, PO No Longer Aaron [facility] Route: PO, Active 2012 Medical Drug form: [place] TAB, Bedtime, Dosing Weight 101.364, kg, Start date: 11/29/12 21:00:00, Duration: 30 day, Stop date: 12/28/12 21:00:00 Cymbalta 60 mg, 1 cap, PO No Longer [facility] Route: PO, Active 2012 Medical Drug form: [place] DRC, Bedtime, Dosing Weight 101.364, kg, Start date: 11/29/12 21:00:00, Stop date: 12/28/12 21:00:00 ceftriaxone 1 gm, Route: IVPB No Longer [facility] IVPB, Drug Active 2012 Medical form: PDR/INJ, [place] [id number], Dosing Weight 100, kg, Start date: 11/29/12 20:00:00, Duration: 30 day, Stop date: 12/28/12 20:00:00 hydrALAZINE 5 mg, 0.25 mL, IV No Longer [facility] Route: IV, Active 2012 Medical Drug form: [place] INJ, Q4H, Dosing Weight 100, kg, PRN Hypertension, Start date: 11/29/12 19:42:00, Duration: 30 day, Stop date: 12/29/12 19:41:00 Phenergan 12.5 mg, 0.5 IVPB No Longer [facility] mL, Route: Active 2012 Medical IVPB, Drug Center form: INJ, Q4H, Dosing Weight 100, kg, PRN Nausea & Vomiting, Start date: 11/29/12 17:56:00, Duration: 30 day, Stop date: 12/29/12 17:55:00 clonazepam 0.5 mg, 1 tab, PO No Longer [facility] Route: PO, Active 2012 Medical Drug form: [place] TAB, TID, Dosing Weight 101.364, kg, PRN Anxiety, Start date: 11/29/12 16:34:00, Duration: 30 day, Stop date: 12/29/12 16:33:00 heparin 5,000 unit, 1 SUB-Q No Longer [facility] [place] mL, Route: Active 2012 Medical SUB-Q, Drug Center form: INJ, Q8H, Dosing Weight 100, kg, Start date: 11/29/12 16:00:00, Duration: 30 day, Stop date: 12/29/12 8:00:00 Insulin 99 mL, Rate: IV No Longer Randy [place] (regular) 0.1units/kg/ho Active 2012 Medical Titrate IV ur Titrate, Center additive 100 Dosing Weight unit [...] 20 Route: IVPB, Active 2012 Medical mmol/250 mL-NaCl PRN, Dosing Center 0.9% intravenous Weight 100, solution kg, PRN Abnormal Lab Result, Priority: [...] 40 mEq, 200 IVPB No Longer Brando 11/29[facility] [place] chloride 20 mL, Route: Active 2012 [...] Chloride 1,000 mL, IV No Longer [facility]rix [place] 0.9% IV 1,000 mL Rate: 200 Active 2012 Medical ml/hr, Infuse Center over: 5 hr, Route: IV, kg, Total Volume: 1,000, Start date: 11/29/12 14:41:00, Stop date: 12/29/12 14:45:00 Insulin regular 99 mL, Rate: IV No Longer [facility]o [facility] 100 unit + Start Insulin Active 2012 Medical Sodium Chloride Drip Per ICU Center 0.9% IV 99 mL protocol, Route: IV, kg, Total Volume: 100, Start date: 11/29/12 12:42:00, Stop date: 12/29/12 12:41:00 Insulin regular 100 mL, Rate: IVPB No Longer Nicho 11/29[facility] 100 unit + Start Insulin Active 2012 Medical Sodium Chloride Drip Per ICU Center 0.9% (titrate) Protocol, 100 mL Dosing Weight 100, kg, Route: IVPB, Total Volume: 100, Duration: 30 day, Stop date: 12/29/12 12:40:00, Replace Every: 24 hr, Initial Insulin Drip Rate (units/hour)=( Fasting Blood Glucose-60)X0. 03 "mul...
In itial Insulin Drip Rate (units/hour)=( Fasting Blood Glucose-60)X0. 03 "multiplier". Dextrose 50% 12.5 gm, 25 IVP No Longer [facility] [place] Syringe mL, Route: Active 2012 Medical IVP, Drug Center Form: INJ, Dosing Weight 100, kg, PRN, PRN Blood Glucose Results, Start date: 11/29/12 12:39:00, Duration: 30 day, Stop date: 12/29/12 12:38:00 Zofran 4 mg, 2 mL, IV No Longer Nicho [place] Route: IV, Active 2012 Medical Drug form: [place] INJ, Q4H, Dosing Weight 100, kg, PRN as needed for nausea/vomitin g, Start date: 11/29/12 9:07:00, Duration: 30 day, Stop date: 12/29/12 9:06:00 NIFEdipine 90 mg, 1 tab, PO No Longer [facility] Route: PO, Active 2012 Medical Drug form: [place] ERTAB, Daily, Dosing Weight 101.364, kg, Start date: 11/29/12 9:00:00, Duration: 30 day, Stop date: 12/28/12 9:00:00 clonazepam 0.5 mg, 1 tab, PO No Longer [facility] [place] Route: PO, Active 2012 Medical Drug form: [place] TAB, TID, Dosing Weight 101.364, kg, Start date: 11/29/12 9:00:00, Duration: 30 day, Stop date: 12/28/12 17:00:00 lisinopril 20 mg, 1 tab, PO No Longer [facility] Route: PO, Active 2012 Medical Drug form: [place] TAB, Q12H, Dosing Weight 101.364, kg, Start date: 11/29/12 9:00:00, Duration: 30 day, Stop date: 12/28/12 21:00:00 magnesium oxide 400 mg, 1 tab, PO No Longer Aaron Fe[facility] Route: PO, Active 2012 Medical Drug form: [place] TAB, Daily, Dosing Weight 101.364, kg, Start date: 11/29/12 9:00:00, Duration: 30 day, Stop date: 12/28/12 9:00:00 Effient 10 mg, 1 tab, PO No Long[facility] Route: PO, Active 2012 Medical Drug form: [place] TAB, Daily, Dosing Weight 101.364, kg, Start date: 11/29/12 9:00:00, Duration: 30 day, Stop date: 12/28/12 9:00:00 Levemir 8 unit, 0.08 SUB-Q No Longer [facility] mL, Route: Active 2012 Medical SUB-Q, Drug Center form: INJ, BID, Dosing Weight 101.364, kg, Start date: 11/29/12 9:00:00, Duration: 30 day, Stop date: 12/28/12 17:00:00 Toprol-XL 100 mg 100 mg, 1 tab, PO No Longer [facility] oral tablet, Route: PO, Active 2012 Medical extended release Drug form: [place] ERTAB, Daily, Start date: 11/29/12 9:00:00, Duration: 30 day, Stop date: 12/28/12 9:00:00 aspirin 81 mg, 1 tab, PO No Longer Aaron [facility] Route: PO, Active 2012 Medical Drug form: [place] ECTAB, Daily, Dosing Weight 101.364, kg, Start date: 11/29/12 9:00:00, Duration: 30 day, Stop date: 12/28/12 9:00:00 Reglan 10 mg, 2 mL, IVP No Longer Nicho [facility] Route: IVP, Active 2012 Medical Drug form: [place] INJ, Q6H-02, Dosing Weight 100, kg, Start date: 11/29/12 8:00:00, Duration: 30 day, Stop date: 12/29/12 2:00:00 Levemir 16 unit, 0.16 SUB-Q No Longer Nicho [facility] mL, Route: Active 2012 Medical SUB-Q, Drug Center form: INJ, Q12H, Dosing Weight 100.568, kg, Priority: STAT, Start date: 11/29/12 7:43:00, Stop date: 12/28/12 21:00:00 Reglan 10 mg 10 mg, 1 tab, PO No Longer Nicho [facility] oral tablet Route: PO, Active 2012 Medical Drug form: [place] TAB, TID-Before Meals, Dosing Weight 101.364, kg, Start date: 11/29/12 7:30:00, Duration: 30 day, Stop date: 12/28/12 16:30:00 NS 1,000 mL 1,000 mL, IV No Longer [facility] Rate: 125 Active 2012 Medical ml/hr, Infuse Center over: 8 hr, Route: IV, kg, Total Volume: 1,000, Start date: 11/29/12 6:53:00, Duration: 30 day, Stop date: 12/29/12 6:52:00 enoxaparin 40 mg, 0.4 mL, SUB-Q No Longer [facility] Route: SUB-Q, Active 2012 Medical Drug form: Center INJ, [id number], Dosing Weight 101.364, kg, Start date: 11/29/12 4:00:00, Duration: 30 day, Stop date: 12/28/12 4:00:00 Phenergan 12.5 mg, 0.25 IVPB [address] [facility] mL, Route: Active 2012 Medical IVPB, Drug Center form: INJ, Q4H, Dosing Weight 101.364, kg, Start date: 11/29/12 4:00:00, Duration: 30 day, Stop date: 12/29/12 0:00:00 tramadol 50 mg 50 mg, 1 tab, PO No Longer [facility] oral tablet Route: PO, Active 2012 Medical Drug form: Center TAB, Q4H, Dosing Weight 101.364, kg, PRN as needed for pain, Start date: 11/29/12 3:46:00, Duration: 30 day, Stop date: 12/29/12 3:45:00 insulin aspart 3 unit, 0.03 SUB-Q No Longer Nicho 11/29[facility] Fei mL, Route: Active 2012 Medical SUB-Q, Drug Center form: SOLN, TID-Before Meals, Dosing Weight 101.364, kg, PRN Blood Glucose Results, Start date: 11/29/12 3:26:00, Duration: 30 day, Stop date: 12/29/12 3:25:00 Dextrose 50% 12.5 gm, 25 IVP No Longer [facility] Syringe mL, Route: Active 2012 Medical IVP, Drug Center Form: INJ, Dosing Weight 101.364, kg, PRN, PRN Blood Glucose Results, Start date: 11/29/12 3:26:00, Duration: 30 day, Stop date: 12/29/12 3:25:00 glucagon 1 mg, Route: IM No Longer [facility] IM, Drug form: Active 2012 Medical PDR/INJ, PRN, Center Dosing Weight 101.364, kg, PRN Blood Glucose Results, Start date: 11/29/12 3:26:00, Duration: 30 day, Stop date: 12/29/12 3:25:00 acetaminophen 650 mg, 20.3 PO No Longer [facility]rix [place] mL, Route: PO, Active 2012 Medical Drug form: [place] LIQ, Q4H, Dosing Weight 101.364, kg, PRN Pain 1-3/Temp > 100.4 F, Start date: 11/29/12 3:25:00, Duration: 30 day, Stop date: 12/29/12 3:24:00 docusate 100 mg, 1 cap, PO No Longer [facility] Route: PO, 2012 Medical Drug form: [place] CAP, BID, Dosing Weight 101.364, kg, PRN Constipation, Start date: 11/29/12 3:25:00, Duration: 30 day, Stop date: 12/29/12 3:24:00 D5W 1/2NS 1,000 1,000 mL, IV No Longer [facility] mL Rate: 75 2012 Medical ml/hr, Infuse Center over: 13.3 hr, Route: IV, kg, Total Volume: 1,000, Start date: 11/29/12 3:21:00, Duration: 30 day, Stop date: 12/29/12 3:20:00 NS 0.45% IV 1000 1,000 mL, IV No Longer [facility] mL Rate: 125 2012 Medical ml/hr, Infuse Center over: 8 hr, Route: IV, Dosing Weight 101.364 kg, Total Volume: 1,000, Start date: 11/29/12 3:18:00, Duration: 30 day, Stop date: 12/29/12 3:17:00 Reglan 10 mg, 2 mL, IVP No Longer [facility] Route: IVP, Active 2012 Medical Drug form: [place] INJ, ONCE, Dosing Weight 101.364, kg, Priority: STAT, Start date: 11/29/12 2:31:00, Stop date: 11/29/12 2:31:00 Zofran 8 mg, Route: IVP No Longer [facility] 11/29[facility] IVP, Drug Active 2012 Medical form: INJ, Center ONCE, Dosing Weight 101.364, kg, Priority: STAT, Start date: 11/29/12 1:52:00, Stop date: 11/29/12 1:52:00 Lortab 500 5 ml, PO, Q6H, PO No Longer [facility] mg-7.5 mg/15 mL PRN, 120 mL, Active 2012 Medical oral elixir for pain, Center Substitution Allowed, Maintenance, ELIX Phenergan 25 mg 1 supp, MA, MA Active [facility] rectal Q6H, PRN, 9 2012 Medical suppository supp, Nausea & Center Vomiting, Substitution Allowed Phenergan 12.5 mg, 0.5 IVPB No Longer [facility] mL, Route: Active 2012 Medical IVPB, Drug Center form: INJ, ONCE, Dosing Weight 101.364, kg, Priority: STAT, Start date: 11/29/12 0:56:00, Stop date: 11/29/12 0:56:00 Zofran 4 mg, 2 mL, IVP No Longer [facility] 11/29[facility] Route: IVP, Active 2012 Medical Drug form: Center INJ, ONCE, Dosing Weight 101.364, kg, Priority: STAT, Start date: 11/28/12 23:49:00, Stop date: 11/28/12 23:49:00 Phenergan 12.5 mg, 0.5 IVPB No Longer [place] 11/29[facility] mL, Route: Active 2012 Medical IVPB, Drug Center form: INJ, ONCE, Dosing Weight 101.364, kg, Priority: STAT, Start date: 11/28/12 19:29:00, Stop date: 11/28/12 19:29:00 Zofran 4 mg, 2 mL, IVP No Longer [place] 11/29[facility] Route: IVP, Active 2012 Medical Drug form: Center INJ, ONCE, Dosing Weight 101.364, kg, Priority: STAT, Start date: 11/28/12 19:29:00, Stop date: 11/28/12 19:29:00 Sodium Chloride 1,000 mL, IV No Longer [place] Fei 0.9% (Bolus) IV Rate: 1,000 Active 2012 Medical 1,000 mL ml/hr, Infuse Center over: 1 hr, Route: IV, kg, Total Volume: 1,000, Priority: STAT, Start date: 11/28/12 19:29:00, Duration: 1 doses or times, Stop date: 11/28/12 20:28:00 Saline Flush 5 ml, Route: IVP No Longer [facility] 0.9% IVP, Drug Active 2012 Medical Form: INJ, [place] Dosing Weight 101.364, kg, PRN, PRN Line Flush, Start date: 11/28/12 19:29:00, Duration: 30 day, Stop date: 12/28/12 19:28:00 calcium 2,000 mg, 20 IVPB No Longer [facility] Fei gluconate + mL, Route: Active 2012 [facility] Sodium Chloride IVPB, ONCE, [place] 0.9% IV 80 mL Dosing Weight 103.21, kg, Start date: 11/17/12 11:02:00, Stop date: 11/17/12 11:02:00 magnesium 2 gm, 50 mL, IVPB No Longer Mark[facility] Fei sulfate Route: IVPB, Active 2012 Medical Drug form: [place] INJ, Q2H, Dosing Weight 103.21, kg, Total dose=4 gm, Start date: 11/17/12 10:00:00, Duration: 2 doses or times, Stop date: 11/17/12 12:00:00 aspirin 81 mg, 1 tab, PO No Longer Markus Fei Route: PO, Active 2012 Medical Drug form: [place] ECTAB, Daily, Dosing Weight 100, kg, Start date: 11/17/12 9:00:00, Duration: 30 day, Stop date: 12/16/12 9:00:00 simvastatin 40 mg, 1 tab, PO No Longer Markus Fei Route: PO, Active 2012 Medical Drug form: [place] TAB, Daily, Dosing Weight 100, kg, Start date: 11/17/12 9:00:00, Duration: 30 day, Stop date: 12/16/12 9:00:00 prasugrel 10 mg, 1 tab, PO No Longer [place] [facility] Route: PO, Active 2012 Medical Drug form: [place] TAB, Daily, Dosing Weight 100, kg, Start date: 11/17/12 9:00:00, Duration: 30 day, Stop date: 12/16/12 9:00:00 NIFEdipine 90 mg, 1 tab, PO No Longer Markus [facility] Route: PO, Active 2012 Medical Drug form: [place] ERTAB, Daily, Dosing Weight 100, kg, Start date: 11/17/12 9:00:00, Duration: 30 day, Stop date: 12/16/12 9:00:00 Toprol-XL 100 mg 100 mg, 1 tab, PO No Longer Markus [facility] oral tablet, Route: PO, Active 2012 Medical extended release Drug form: [place] ERTAB, Daily, Start date: 11/17/12 9:00:00, Duration: 30 day, Stop date: 12/16/12 9:00:00 magnesium oxide 400 mg, 1 tab, PO No Longer Markus [facility] Route: PO, Active 2012 Medical Drug form: [place] TAB, Daily, Dosing Weight 100, kg, Start date: 11/17/12 9:00:00, Duration: 30 day, Stop date: 12/16/12 9:00:00 insulin detemir 15 unit, 0.15 SUB-Q No Longer [place] [facility] mL, Route: Active 2012 Medical SUB-Q, Drug Center form: INJ, Daily, Dosing Weight 100, kg, Start date: 11/17/12 9:00:00, Duration: 30 day, Stop date: 12/16/12 9:00:00 Zofran 8 mg, 4 mL, IV No Longer [place] [facility] Route: IV, Active 2012 Medical Drug form: [place] INJ, Q4H, Dosing Weight 103.21, kg, PRN as needed for nausea/vomitin g, Start date: 11/17/12 8:56:00, Duration: 30 day, Stop date: 12/17/12 8:55:00 Reglan 10 mg 10 mg, 1 tab, PO No Longer [place] [facility] oral tablet Route: PO, Active 2012 Medical Drug form: [place] TAB, TID-Before Meals, Dosing Weight 100, kg, Start date: 11/17/12 7:30:00, Duration: 30 day, Stop date: 12/16/12 16:30:00 insulin aspart 4 unit, 0.04 SUB-Q No Longer Mark[facility] mL, Route: Active 2012 Medical SUB-Q, Drug Center form: SOLN, TID-Before Meals, Dosing Weight 100, kg, Start date: 11/17/12 7:30:00, Duration: 30 day, Stop date: 12/16/12 16:30:00 Cymbalta 120 mg, 2 cap, PO No Longer [facility] Route: PO, Active 2012 Medical Drug form: Center DRC, Bedtime, Dosing Weight 100, kg, Start date: 11/16/12 21:00:00, Duration: 30 day, Stop date: 12/15/12 21:00:00 lisinopril 20 mg, 1 tab, PO No Longer [facility] Route: PO, Active 2012 Medical Drug form: Center TAB, Q12H, Dosing Weight 100, kg, Start date: 11/16/12 21:00:00, Duration: 30 day, Stop date: 12/16/12 9:00:00 insulin detemir 12 unit, 0.12 SUB-Q No Longer Markus [facility] mL, Route: Active 2012 Medical SUB-Q, Drug Center form: INJ, Bedtime, Dosing Weight 100, kg, Start date: 11/16/12 21:00:00, Duration: 30 day, Stop date: 12/15/12 21:00:00 clonazepam 0.5 mg, 1 tab, PO No Longer Markus [facility] Route: PO, Active 2012 Medical Drug form: Center TAB, TID, Dosing Weight 100, kg, Start date: 11/16/12 20:30:00, Duration: 30 day, Stop date: 12/16/12 17:00:00 Neutra-Phos 1 pkt, Route: PO No Longer [facility] PO, Drug Form: Active 2012 Medical PDR/REC, Center Dosing Weight 100, kg, TID-Before Meals, Start date: 11/16/12 20:30:00, Duration: 30 day, Stop date: 12/16/12 16:30:00 enoxaparin 40 mg, 0.4 mL, SUB-Q No Longer Markus [facility] Route: SUB-Q, Active 2012 Medical Drug form: [facility] INJ, [id number], Dosing Weight 100, kg, Start date: 11/16/12 19:00:00, Duration: 30 day, Stop date: 12/15/12 19:00:00 Sodium Chloride 1,000 mL, IV No Longer Markus [facility] 0.9% IV 1,000 mL Rate: 125 Active 2012 Medical ml/hr, Infuse Center over: 8 hr, Route: IV, kg, Total Volume: 1,000, Start date: 11/16/12 18:10:00, Duration: 30 day, Stop date: 12/16/12 18:09:00 insulin aspart 10 unit, 0.1 SUB-Q No Longer Markus [facility] mL, Route: Active 2012 Medical SUB-Q, Drug Center form: SOLN, TID-Before Meals, Dosing Weight 100, kg, PRN Blood Glucose Results, Start date: 11/16/12 18:10:00, Duration: 30 day, Stop date: 12/16/12 18:09:00 Dextrose 50% 12.5 gm, 25 IVP No Longer Mark[facility] Syringe mL, Route: Active 2012 Medical IVP, Drug Center Form: INJ, Dosing Weight 100, kg, PRN, PRN Blood Glucose Results, Start date: 11/16/12 18:10:00, Duration: 30 day, Stop date: 12/16/12 18:09:00 glucagon 1 mg, Route: IM No Longer Markus Fei IM, Drug form: Active 2012 Medical PDR/INJ, PRN, Center Dosing Weight 100, kg, PRN Blood Glucose Results, Start date: 11/16/12 18:10:00, Duration: 30 day, Stop date: 12/16/12 18:09:00 Mark 5/325 oral 1 tab, Route: PO No Longer Markus Fei tablet PO, Drug Form: Active 2012 Medical TAB, Dosing Center Weight 100, kg, Q6H, PRN as needed for pain, Start date: 11/16/12 18:07:00, Duration: 30 day, Stop date: 12/16/12 18:06:00 tramadol 50 mg 50 mg, 1 tab, PO No Longer Markus [facility] oral tablet Route: PO, Active 2012 Medical Drug form: [place] TAB, Q4H, Dosing Weight 100, kg, PRN as needed for pain, Start date: 11/16/12 18:01:00, Duration: 30 day, Stop date: 12/16/12 18:00:00 promethazine 25 mg, 1 tab, PO No Longer [place] [facility] Route: PO, Active 2012 Medical Drug form: [place] TAB, Q4H, Dosing Weight 100, kg, PRN as needed for nausea/vomitin g, Start date: 11/16/12 18:01:00, Duration: 30 day, Stop date: 12/16/12 18:00:00 ondansetron 8 mg, 2 tab, PO No Longer [place] [facility] Route: PO, Active 2012 Medical Drug form: [place] TABDIS, Q8H, Dosing Weight 100, kg, PRN Nausea & Vomiting, Start date: 11/16/12 18:01:00, Stop date: 12/16/12 18:00:00, nauea ondansetron 8 mg 8 mg, 1 tab, PO Active [place] Fei oral tablet, PO, Q8H, PRN, 2012 Medical disintegrating Dissolve under Center tongue, 10 tab, as needed for nausea/vomitin g, Substitution Allowed
Di ssolve under tongue Effient 10 mg 10 mg, 1 tab, PO Active Fei oral tablet PO, Daily, 2012 Medical tab, Center Substitution Allowed, TAB tramadol 50 mg 50 mg, 1 tab, PO Active [place] Fe[facility] oral tablet PO, Q4H, PRN, 2012 Medical 60 tab, for Center pain, Substitution Allowed, TAB clonazepam 0.5 0.5 mg, 1 tab, PO Active [place] mg oral tablet PO, TID, 2012 Medical Substitution Center Allowed, TAB Reglan 10 [...] Stop date: 11/16/12 15:50:00 Omnipaque 100 mL, Route: IVP No Longer Rehrer Fei 350mg/ml IVP, Drug Active 2012 Medical Form: SOLN, [place] Dosing Weight 100, kg, ONCALL, STAT, Start date: 11/16/12 15:35:00, Duration: 1 doses or times, Dose=2.2ml/kg, Max [id number] -- "To be infused by Radiology Staff ONLY"
Dose =2.2ml/kg, Max [id number] -- "To be infused by Radiology Staff ONLY" Lactated Ringers 1,000 mL, IV No Longer Rehrer Fei (Bolus) IV 1,000 Rate: 1,000 Active 2012 Medical mL ml/hr, Infuse Center over: 1 hr, Route: IV, kg, Total Volume: 1,000, Bolus Dose, Priority: STAT, Start date: 11/16/12 15:06:00, Duration: 1 doses or times, Stop date: 11/16/12 16:05:00 magnesium 1 gm, Route: IVPB No Longer Rehrer [place] sulfate IVPB, Drug Active 2012 Medical form: INJ, Center ONCE, Dosing Weight 100, kg, Start date: 11/16/12 14:51:00, Stop date: 11/16/12 14:51:00 Ativan 1 mg, 0.5 mL, IVP No Longer Ana Fei Route: IVP, Active 2012 Medical Drug form: [place] INJ, ONCE, Dosing Weight 100, kg, Priority: STAT, Start date: 11/16/12 13:55:00, Stop date: 11/16/12 13:55:00 morphine Sulfate 4 mg, 1 mL, IVP No Longer Rehrer Fei Route: IVP, Active 2012 Medical Drug form: [place] INJ, ONCE, Dosing Weight 100, kg, Priority: STAT, Start date: 11/16/12 13:40:00, Stop date: 11/16/12 13:40:00 nitroglycerin 0.4 mg, 1 tab, SL No Longer Rehrer [facility] 0.4 mg Route: SL, Active 2012 Medical sublingual Drug form: [place] tablet TAB, ONCE, Dosing Weight 100, kg, Start date: 11/16/12 13:30:00, Stop date: 11/16/12 13:30:00 aspirin 324 mg, 4 tab, CHEW No Longer Rehrer [facility] Route: CHEW, Active 2012 Medical Drug form: [place] CHEWTAB, ONCE, Dosing Weight 100, kg, Priority: STAT, Start date: 11/16/12 13:29:00, Stop date: 11/16/12 13:29:00 Zofran 8 mg, 4 mL, IVP No Longer Rehrer [facility] Route: IVP, Active 2012 Medical Drug form: [place] INJ, ONCE, Dosing Weight 100, kg, Priority: STAT, Start date: 11/16/12 13:17:00, Stop date: 11/16/12 13:17:00 Saline Flush 5 mL, Route: IVP No Longer Rehrer [facility] 0.9% IVP, Drug Active 2012 Medical Form: INJ, [facility] Dosing Weight 100, kg, Q8H, PRN Line Flush, Start date: 11/16/12 13:16:00, Duration: 30 day, Stop date: 12/16/12 13:15:00, Administer at least once every 8 hours
Admi nister at least once every 8 hours Reglan 10 mg 10 mg, 1 tab, PO Active [facility] oral tablet PO, TID-Before 2012 Medical Meals, PRN, 42 Center tab, nausea, Substitution Allowed, TAB Mark 5/325 oral 1 tab, PO, PO Active [facility] tablet Q6H, PRN, 10 2012 Medical tab, Pain, Center Substitution Allowed, Maintenance, TAB ondansetron 8 mg 8 mg, 1 tab, PO Active [facility] oral tablet, PO, Q8H, PRN, 2012 Medical disintegrating 60 tab, 1, 1, Center Nausea, Substitution Allowed, TABDIS insulin detemir 12 unit, 0.12 SUB-Q Active [facility] [place] 100 units/mL mL, SUB-Q, 2013 Medical subcutaneous Bedtime, 4 mL, [facility] solution Substitution Allowed, INJ insulin detemir 15 unit, 0.15 SUB-Q Active [facility] 100 units/mL mL, SUB-Q, 2012 Medical subcutaneous Daily, 5 mL, [place] solution Substitution Allowed, INJ Zofran 4 mg, 1 tab, PO No Longer [facility] Route: PO, Active 2012 Medical Drug form: [place] TAB, Q8H, Dosing Weight 100, kg, Start date: 11/14/12 16:00:00, Duration: 30 day, Stop date: 12/14/12 8:00:00 Reglan 10 mg 10 mg, 1 tab, PO No Longer [facility] oral tablet Route: PO, Active 2012 Medical Drug form: [place] TAB, TID-Before Meals, Dosing Weight 100, kg, Start date: 11/14/12 11:30:00, Duration: 30 day, Stop date: 12/14/12 7:30:00 calcium 2,000 mg, 20 IVPB No Longer Rose Fei gluconate + mL, Route: Active 2012 Medical Sodium Chloride IVPB, Drug [facility] 0.9% IV 100 mL form: INJ, Q2H, Dosing Weight 100, kg, Total fsyb=2628 mg, Start date: 11/14/12 8:00:00, Duration: 2 doses or times, Stop date: 11/14/12 10:00:00 magnesium 2 gm, 50 mL, IVPB No Longer [facility] sulfate Route: IVPB, Active 2012 Medical Drug form: [place] INJ, Q2H, Dosing Weight 100, kg, Total dose=4 gm, Start date: 11/13/12 10:00:00, Duration: 2 doses or times, Stop date: 11/13/12 12:00:00 Omnipaque 118 mL, Route: IVP No Longer Karanjawala Fei 350mg/ml IVP, Drug Active 2012 Medical [facility]: [facility] Dosing Weight 100, kg, ONCALL, STAT, Start date: 11/13/12 9:33:00, Duration: 1 doses or times, Stop date: 11/14/12 0:00:00, Weight=95 - 109kg -- "To be infused by Radiology Staff ONLY"
Weig ht=95 - 109kg -- "To be infused by Radiology Staff ONLY" potassium 20 mEq, 100 IVPB No Longer [facility] chloride mL, Route: Active 2012 Medical IVPB, Drug Center form: INJ, ONCE, Dosing Weight 100, kg, Total dose=20mEq, Start date: 11/13/12 7:58:00, Duration: 1 doses or times, Stop date: 11/13/12 7:58:00, For K=3.5 - 3.9 mEq/L
F or K=3.5 - 3.9 mEq/L calcium 1,000 mg, 10 IVPB No Longer [facility] gluconate + mL, Route: Active 2012 Medical Sodium Chloride IVPB, ONCE, Center 0.9% IV 50 mL Dosing Weight 100, kg, Start date: 11/13/12 7:56:00, Stop date: 11/13/12 7:56:00 Reglan 10 mg, 2 mL, IVP No Longer [facility] Route: IVP, Active 2012 Medical Drug form: [facility] INJ, Before Meals & Bedtime, Dosing Weight 100, kg, Start date: 11/12/12 16:30:00, Duration: 30 day, Stop date: 12/12/12 11:30:00 Mark 5/325 oral 1 tab, Route: PO No Longer [facility] [place] tablet PO, Drug Form: Active jaida 2012 Medical TAB, Dosing Center Weight 100, kg, Q6H, PRN Pain, Start date: 11/12/12 16:07:00, Duration: 30 day, Stop date: 12/12/12 16:06:00 Reglan 10 mg, Route: IVP No Longer Aristides [facility] IVP, Q6H, Active 2012 Medical Dosing Weight Center 100, kg, PRN Nausea & Vomiting, Start date: 11/12/12 12:35:00, Duration: 30 day, Stop date: 12/12/12 12:34:00 insulin detemir 15 unit, SUB-Q No Longer Ada [facility] Route: SUB-Q, Active 2012 Medical ONCE, Dosing Center Weight 100, kg, Priority: NOW, Start date: 11/12/12 10:38:00, Stop date: 11/12/12 10:38:00 heparin 7,500 unit, SUB-Q No Longer Cardoza [facility] 1.5 mL, Route: Active 2012 Medical SUB-Q, Drug Center form: INJ, Q8H, Start date: 11/11/12 18:00:00, Duration: 30 day, Stop date: 12/11/12 16:00:00 Levemir FlexPen 15 unit, 0.15 SUB-Q No Longer Ada [facility] mL, Route: Active 2012 Medical SUB-Q, Drug Center form: INJ, Daily, Dosing Weight 100, kg, Start date: 11/11/12 10:00:00, Stop date: 12/11/12 9:00:00 magnesium 2 gm, 50 mL, IVPB No Longer [facility] sulfate Route: IVPB, Active 2012 Medical Drug form: Center INJ, ONCE, Dosing Weight 100, kg, Total dose=2 gm, Start date: 11/11/12 9:04:00, Duration: 1 doses or times, Stop date: 11/11/12 9:04:00 insulin detemir 20 unit, 0.2 SUB-Q No Longer Ada 11/11[facility] mL, Route: Active 2012 Medical SUB-Q, Drug Center form: INJ, Daily, Dosing Weight 100, kg, Start date: 11/11/12 9:00:00, Stop date: 12/10/12 9:00:00 Toradol 15 mg/mL 15 mg, 1 mL, IV No Longer [facility] injectable Route: IV, Active 2012 Medical solution Drug form: Center INJ, ONCE, Dosing Weight 100, kg, Start date: 11/11/12 0:56:00, Stop date: 11/11/12 0:56:00 Zofran 4 mg, 2 mL, IV No Longer [facility] Route: IV, Active 2012 Medical Drug form: Center INJ, Q8H, Dosing Weight 100, kg, Start date: 11/11/12 0:00:00, Duration: 30 day, Stop date: 12/10/12 16:00:00 normal saline 1,000 mL, IV No Longer [facility] [place] 0.9% IV 1,000 mL Rate: 100 Active 2012 Medical ml/hr, Infuse Center over: 10 hr, Route: IV, kg, Total Volume: 1,000, Start date: 11/10/12 20:17:00, Duration: 30 day, Stop date: 12/10/12 20:16:00 Sodium Chloride 1,000 mL, IV No Longer [facility] 0.9% (Bolus) IV Rate: 1,000 Active 2012 Medical 1,000 mL ml/hr, Infuse Center over: 1 hr, Route: IV, kg, Total Volume: 1,000, Priority: STAT, Start date: 11/10/12 20:17:00, Duration: 1 doses or times, Stop date: 11/10/12 21:16:00, Bolus Dose
Sukh marie Dose insulin detemir 10 unit, 0.1 SUB-Q No Longer Viraki [facility] mL, Route: Active 2012 Medical SUB-Q, Drug Center form: INJ, ONCE, Dosing Weight 100, kg, Priority: NOW, Start date: 11/10/12 11:40:00, Stop date: 11/10/12 11:40:00 Zofran ODT 4 mg, 1 tab, PO No Longer [facility] [place] Route: PO, Active 2012 Medical Drug form: Center TABDIS, Q8H, Dosing Weight 100, kg, PRN Nausea, Start date: 11/10/12 11:04:00, Duration: 30 day, Stop date: 12/10/12 11:03:00 Phenergan 12.5 mg, 0.5 IM No Longer Ahmad [place] mL, Route: IM, Active 2012 Medical Drug form: Center INJ, PRN, Dosing Weight 100, kg, PRN as needed for nausea/vomitin g, Start date: 11/10/12 10:00:00, Duration: 30 day, Stop date: 12/10/12 10:59:00 insulin detemir 16 unit, 0.16 SUB-Q No Longer Maggin [facility] mL, Route: Active 2012 Medical SUB-Q, Drug Center form: INJ, ONCE, Dosing Weight 100, kg, Start date: 11/10/12 0:20:00, Stop date: 11/10/12 0:20:00 NovoLog 6 unit, 0.06 SUB-Q No Longer Olejarski 11/09[facility] mL, Route: Active 2012 Medical SUB-Q, Drug Center form: SOLN, TID-Before Meals, Dosing Weight 100, kg, Start date: 11/09/12 16:30:00, Duration: 30 day, Stop date: 12/09/12 11:30:00 insulin aspart 7 unit, 0.07 SUB-Q No Longer Loida [facility] mL, Route: Active 2012 Medical SUB-Q, Drug Center form: SOLN, ONCE, Dosing Weight 100, kg, Start date: 11/09/12 13:24:00, Stop date: 11/09/12 13:24:00 insulin detemir 20 unit, 0.2 SUB-Q No Longer Juanjo [facility] mL, Route: Active 2012 Medical SUB-Q, Drug Center form: INJ, Daily, Dosing Weight 100, kg, Start date: 11/09/12 9:00:00, Duration: 30 day, Stop date: 12/08/12 9:00:00 morphine Sulfate 1 mg, 0.5 mL, IV No Longer Chavez [facility] Route: IV, Active 2012 Medical Drug form: Center INJ, ONCE, Dosing Weight 100, kg, Start date: 11/09/12 5:28:00, Stop date: 11/09/12 5:28:00 insulin detemir 12 unit, 0.12 SUB-Q No Longer Anarski 11/09[facility] mL, Route: Active 2012 Medical SUB-Q, Drug Center form: INJ, Bedtime, Dosing Weight 100, kg, Start date: 11/08/12 21:00:00, Stop date: 12/07/12 21:00:00 morphine Sulfate 2 mg, 1 mL, IVP No Longer Quintanilla [facility] Route: IVP, Active 2012 Medical Drug form: Center INJ, ONCE, Dosing Weight 100, kg, Start date: 11/08/12 18:34:00, Stop date: 11/08/12 18:34:00 ampicillin + 1,500 mg, IVPB No Longer Aristides [facility] Sodium Chloride Route: IVPB, Active 2012 Medical 0.9% IV 100 mL Drug form: Center PDR/INJ, [id number], Dosing Weight 100, kg, Start date: 11/08/12 18:00:00, Duration: 30 day, Stop date: 12/08/12 12:00:00 ciprofloxacin 500 mg, 1 tab, PO No Longer Maggin [facility] Route: PO, Active 2012 Medical Drug form: Center TAB, [id number], Dosing Weight 100, kg, Start date: 11/08/12 17:00:00, Duration: 30 day, Stop date: 12/08/12 5:00:00 Rocephin 1 gm, Route: IVPB No Longer Janet [facility] IVPB, Drug Active 2012 Medical form: PDR/INJ, Center ONCE, Dosing Weight 100, kg, Start date: 11/08/12 13:11:00, Stop date: 11/08/12 13:11:00 insulin aspart 2 unit, 0.02 SUB-Q No Longer Anarsruel [facility] mL, Route: Active 2012 Medical SUB-Q, Drug Center form: SOLN, TID-Before Meals, Dosing Weight 100, kg, PRN Blood Glucose Results, Start date: 11/08/12 10:45:00, Duration: 30 day, Stop date: 12/08/12 10:44:00 insulin aspart 2 unit, 0.02 SUB-Q No Longer Domingojarski [facility] mL, Route: Active 2012 Medical SUB-Q, Drug Center form: SOLN, TID-Before Meals, Dosing Weight 100, kg, PRN Blood Glucose Results, Start date: 11/07/12 18:47:00, Duration: 30 day, Stop date: 12/07/12 18:46:00 magnesium 2 gm, 50 mL, IVPB No Longer Maggin [facility] sulfate Route: IVPB, Active 2012 Medical [...] 40 mg, Route: IVP No Longer Quintanilla Fei IVP, Drug Active 2012 Medical form: [...] 11/06/12 9:43:00, Stop date: 11/06/12 9:43:00 Lactated Ringers 1,000 mL, IV No Longer [place] Fei (Bolus) IV 1,000 Rate: 1,000 Active 2012 Medical [...] IM No Longer Mag[place] Fei IM, Drug form: Active 2012 Medical PDR/INJ, PRN, Center Dosing Weight 100, kg, PRN Blood Glucose [...] times, Stop date: 11/06/12 10:05:00, Bolus Dose
Bolus Dose heparin 5000 7,500 unit, SUB-Q No Longer Mag[place] Fei units/mL 1.5 mL, Route: Active 2012 Medical injectable SUB-Q, Drug Center solution form: INJ, Q12H, Dosing Weight 104.545, kg, Start date: 11/06/12 9:00:00, Stop date: 12/05/12 21:00:00 prasugrel 10 mg, 1 tab, PO No Longer Maggin Fei Route: PO, Active 2012 Medical Drug form: [place] TAB, Daily, Dosing Weight 100, kg, Start date: 11/06/12 9:00:00, Duration: 30 day, Stop date: 12/05/12 9:00:00 NIFEdipine 90 mg, 1 tab, PO No Longer Mag[place] Fei Route: PO, Active 2012 Medical Drug form: [place] ERTAB, Daily, Dosing Weight 100, kg, Start date: 11/06/12 9:00:00, Duration: 30 day, Stop date: 12/05/12 9:00:00 Toprol-XL 100 mg 100 mg, 1 tab, PO No Longer Maggin Fei oral tablet, Route: PO, Active 2012 Medical extended release Drug form: [place] ERTAB, Daily, Start date: 11/06/12 9:00:00, Duration: 30 day, Stop date: 12/05/12 9:00:00 magnesium oxide 400 mg, 1 tab, PO No Longer Maggin Fei Route: PO, Active 2012 Medical Drug form: [place] TAB, Daily, Dosing Weight 100, kg, Start date: 11/06/12 9:00:00, Duration: 30 day, Stop date: 12/05/12 9:00:00 aspirin 81 mg 81 mg, 1 tab, PO No Longer Maggin Fei tablet, enteric Route: PO, Active 2012 Medical coated Drug form: [place] ECTAB, Daily, Dosing Weight 100, kg, Start date: 11/06/12 9:00:00, Duration: 30 day, Stop date: 12/05/12 9:00:00 Cymbalta 60 mg, 2 cap, PO No Longer Maggin Fei Route: PO, Active 2012 Medical Drug form: [place] DRC, Daily, Dosing Weight 100, kg, Start date: 11/06/12 9:00:00, Duration: 30 day, Stop date: 12/05/12 9:00:00 Saline Flush 5 ml, Route: IVP No Longer Mag[place] Fei 0.9% IVP, Drug Active 2012 Medical Form: INJ, Center Dosing Weight 104.545, kg, Q12H, Start date: 11/06/12 9:00:00, Duration: 30 day, Stop date: 12/05/12 21:00:00 insulin aspart 4 unit, 0.04 SUB-Q No Longer Anarski Fei mL, Route: Active 2012 Medical SUB-Q, Drug Center form: SOLN, TID-Before Meals, Dosing Weight 100, kg, Start date: 11/06/12 7:30:00, Duration: 30 day, Stop date: 12/05/12 16:30:00 metoclopramide 10 mg, 2 mL, IVP No Longer Aristides Fei Route: IVP, Active 2012 Medical Drug form: Center INJ, Q6H, Dosing Weight 100, kg, PRN Nausea & Vomiting, Start date: 11/06/12 1:49:00, Duration: 30 day, Stop date: 12/06/12 1:48:00 Benadryl 25 mg, 0.5 mL, IV No Longer [place] Fei Route: IV, Active 2012 Medical Drug form: Center INJ, Q4H, Dosing Weight 100, kg, PRN as needed for nausea/vomitin g, Start date: 11/06/12 1:44:00, Duration: 30 day, Stop date: 12/06/12 1:43:00 Phenergan 12.5 mg, 0.5 IVPB No Longer Gee Fei mL, Route: Active 2012 Medical IVPB, Drug Center form: INJ, Q6H, Dosing Weight 100, kg, PRN Nausea & Vomiting, Start date: 11/06/12 1:43:00, Stop date: 12/06/12 1:42:00 Benadryl 25 mg, 1 cap, PO No Longer [place] Fei Route: PO, Active 2012 Medical Drug form: Center CAP, TID, Dosing Weight 100, kg, PRN Nausea, Start date: 11/06/12 0:31:00, Duration: 30 day, Stop date: 12/06/12 0:30:00 labetalol 20 mg, 4 mL, IVP No Longer Maggin [facility] Route: IVP, Active 2012 Medical Drug form: Center INJ, ONCE, Dosing Weight 100, kg, Start date: 11/06/12 0:25:00, Stop date: 11/06/12 0:25:00 simvastatin 40 mg, 1 tab, PO No Longer Maggin [facility] Route: PO, Active 2012 Medical Drug form: Center TAB, Bedtime, Dosing Weight 100, kg, Start date: 11/05/12 23:00:00, Duration: 30 day, Stop date: 12/05/12 21:00:00 lisinopril 20 mg, 1 tab, PO No Longer Maggin [facility] Route: PO, Active 2012 Medical Drug form: Center TAB, Q12H, Dosing Weight 100, kg, Start date: 11/05/12 23:00:00, Duration: 30 day, Stop date: 12/05/12 21:00:00 insulin detemir 20 unit, 0.2 SUB-Q No Longer Olejarski [facility] mL, Route: Active 2012 Medical SUB-Q, Drug Center form: INJ, Q12H, Dosing Weight 100, kg, Start date: 11/05/12 23:00:00, Stop date: 12/05/12 21:00:00 magnesium oxide 400 mg, 1 tab, PO Active [facility] 400 mg oral PO, Daily, 2012 Medical tablet tab, Center Substitution Allowed, TAB metoprolol 100 100 mg, 1 tab, PO Active [facility] mg oral tablet, PO, Daily, 30 2012 Medical extended release tab, Center Substitution Allowed NIFEdipine 90 mg 90 mg, 1 tab, PO Active [facility] oral tablet, PO, Daily, 2012 Medical extended release tab, Center Substitution Allowed, ERTAB prasugrel 10 mg 10 mg, 1 tab, PO Active [facility] oral tablet PO, Daily, 30 2012 Medical tab, Center Substitution Allowed, TAB Cymbalta 60 mg, Daily, Active [facility] Substitution 2012 Medical Allowed Center tramadol 50 mg 50 mg, 1 tab, PO No Longer Mag[place] [facility] oral tablet Route: PO, Active 2012 Medical Drug form: Center TAB, Q4H, Dosing Weight 100, kg, PRN For Pain, Start date: 11/05/12 22:39:00, Duration: 30 day, Stop date: 12/05/12 22:38:00 promethazine 25 mg, 1 tab, PO No Longer Gee [place] Route: PO, Active 2012 Medical Drug form: [place] TAB, Q6H, Dosing Weight 100, kg, PRN as needed for nausea/vomitin g, Start date: 11/05/12 22:39:00, Duration: 30 day, Stop date: 12/05/12 22:38:00 Phenergan 25 mg, 1 tab, PO No Longer [place] Route: PO, Active 2012 Medical Drug form: [place] TAB, Q4H, Dosing Weight 104.545, kg, PRN Nausea & Vomiting, Start date: 11/05/12 22:33:00, Duration: 30 day, Stop date: 12/05/12 22:32:00 Zofran 8 mg, 4 mL, IV No Longer Juanjo [place] Route: IV, Active 2012 Medical Drug form: [place] INJ, Q8H, Dosing Weight 104.545, kg, PRN Nausea, Start date: 11/05/12 22:32:00, Duration: 30 day, Stop date: 12/05/12 22:31:00 Saline Flush 5 ml, Route: IVP No Longer [place] 0.9% IVP, Drug Active 2012 Medical Form: INJ, [place] Dosing Weight 104.545, kg, PRN, PRN Line Flush, Start date: 11/05/12 22:14:00, Duration: 30 day, Stop date: 12/05/12 23:13:00 Sodium Chloride 500 mL, Rate: IV No Longer [place] Fei 0.9% (Bolus) IV 2,000 ml/hr, Active 2012 Medical 500 mL Infuse over: [place] 15 minutes, Route: IV, kg, Total Volume: 500, Priority: STAT, Start date: 11/05/12 22:14:00, Duration: 1 doses or times, Stop date: 11/05/12 22:28:00 nitroglycerin SL 0.4 mg, 1 tab, SL No Longer [place] Tab Route: SL, Active 2012 Medical Drug form: [place] TAB, Q5Min, Dosing Weight 104.545, kg, PRN Chest Pain, Start date: 11/05/12 22:14:00, Duration: 3 doses or times, Stop date: Limited # of times Phenergan 12.5 mg, IVPB No Longer Dilan [facility] Route: IVPB, Active 2012 Medical ONCE, Dosing Center Weight 104.545, kg, Priority: STAT, Start date: 11/05/12 22:05:00, Stop date: 11/05/12 22:05:00 Phenergan 12.5 mg, 0.5 IVPB No Longer Dilan [facility] mL, Route: Active 2012 Medical IVPB, Drug Center form: INJ, ONCE, Dosing Weight 104.545, kg, Priority: STAT, Start date: 11/05/12 21:08:00, Stop date: 11/05/12 21:08:00 carvedilol 12.5 mg, 1 PO No Longer Dilan [facility] tab, Route: Active 2012 Medical PO, Drug form: [place] TAB, ONCE, Dosing Weight 104.545, kg, Start date: 11/05/12 19:20:00, Stop date: 11/05/12 19:20:00 Effient 10 mg, 1 tab, PO No Longer Dilan [facility] Route: PO, Active 2012 Medical Drug form: [place] TAB, ONCE, Dosing Weight 104.545, kg, Start date: 11/05/12 19:16:00, Stop date: 11/05/12 19:16:00 ondansetron 4 mg, 2 mL, IVP No Longer Dilan [facility] Route: IVP, Active 2012 Medical Drug form: [place] INJ, ONCE, Dosing Weight 104.545, kg, Priority: STAT, Start date: 11/05/12 19:14:00, Stop date: 11/05/12 19:14:00 aspirin 324 mg, 4 tab, PO No Longer Dilan [facility] Route: PO, Active 2012 Medical Drug form: [place] CHEWTAB, ONCE, Dosing Weight 104.545, kg, Priority: STAT, Start date: 11/05/12 19:14:00, Stop date: 11/05/12 19:14:00 Saline Flush 5 mL, Route: IVP No Longer Dilan [place] 0.9% IVP, Drug Active 2012 Medical Form: INJ, Center Dosing Weight 104.545, kg, Q8H, PRN Line Flush, Start date: 11/05/12 19:14:00, Duration: 30 day, Stop date: 12/05/12 19:13:00, Administer at least once every 8 hours
A dminister at least once every 8 hours promethazine 25 25 mg, 1 tab, Active [place] mg oral tablet Q4H, PRN, as 2012 Medical needed for Center nausea/vomitin g, Substitution Allowed aspirin 81 mg, Daily, Active [facility] Substitution 2012 Medical Allowed Center lisinopril 20 mg 20 mg, 1 tab, PO Active [facility] oral tablet PO, Daily, 30 2012 Medical tab, Center Substitution Allowed, TAB Zofran 8 mg oral 8 mg, 1 tab, No Longer [place] tablet Q8H, PRN, as Active 2012 Medical needed for Center nausea/vomitin g, Substitution Allowed simvastatin 40 40 mg, 1 tab, PO Active [place] mg oral tablet PO, Daily, 30 2012 Medical tab, Center Substitution Allowed, Maintenance insulin detemir 16 unit, 0.16 SUB-Q No Longer Fitzpatrick [facility] mL, Route: Active 2012 Medical SUB-Q, Drug Center form: INJ, Q12H, Dosing Weight 78.2, kg, Start date: 10/31/12 21:00:00, Duration: 30 day, Stop date: 11/30/12 9:00:00 insulin aspart 4 unit, 0.04 SUB-Q Active [facility] 100 units/mL mL, SUB-Q, 2012 Medical subcutaneous TID-Before Center solution Meals, 1 vial, 2, 2, Substitution Allowed, SOLN insulin detemir 16 unit, 0.16 SUB-Q Active [facility] 100 units/mL mL, SUB-Q, 2012 Medical subcutaneous Q12H, 1 vial, Center solution 2, 2, Substitution Allowed, INJ tramadol 50 mg 50 mg, 1 tab, PO Active Gee [facility] oral tablet PO, Q4H, PRN, 2012 Medical 30 tab, as Center needed for pain, Substitution Allowed, TAB simvastatin 40 40 mg, 1 tab, PO Active [place] 10/31/ [place] mg oral tablet PO, Bedtime, 2012 Medical 30 tab, 1, 1, Center Substitution Allowed, Maintenance, TAB promethazine 25 25 mg, 1 tab, PO Active [place] 10/31/ [place] mg oral tablet PO, Q6H, PRN, 2012 Medical 60 tab, 1, 1, Center Nausea & Vomiting, Substitution Allowed, TAB prasugrel 10 mg 10 mg, 1 tab, PO Active [place] 10/31/ [place] oral tablet PO, Daily, 30 2012 Medical tab, 1, 1, Center Substitution Allowed, TAB ondansetron 8 mg 8 mg, 1 tab, PO Active [place] 10/31/ [facility] oral tablet, PO, Q8H, PRN, 2012 Medical disintegrating 60 tab, 1, 1, Center Nausea, Substitution Allowed, TABDIS NIFEdipine 90 mg 90 mg, 1 tab, PO Active [place] 10/31[facility] oral tablet, PO, Daily, 30 2012 Medical extended release tab, 1, 1, Center Substitution Allowed, ERTAB Toprol-XL 100 mg 100 mg, 1 tab, PO Active [place] 10/31[facility] oral tablet, PO, Daily, 30 2012 Medical extended release tab, 1, 1, Center Substitution Allowed, ERTAB magnesium oxide 400 mg, 1 tab, PO Active [place] 10/31/ [place] 400 mg oral PO, Daily, 30 2012 Medical tablet tab, 1, 1, Center Substitution Allowed, TAB lisinopril 20 mg 20 mg, 1 tab, PO Active [place] 10/31[facility] oral tablet PO, Q12H, 60 2012 Medical tab, 1, 1, Center Substitution Allowed, TAB aspirin 81 mg 81 mg, 1 tab, PO Active [place] 10/31[facility] tablet, enteric PO, Daily, 30 2012 Medical coated tab, 1, 1, Center Substitution Allowed, ECTAB insulin aspart 6 unit, 0.06 SUB-Q No Longer Manlapaz [facility] mL, Route: Active 2012 Medical SUB-Q, Drug Center form: SOLN, TID-Before Meals, Dosing Weight 78.2, kg, PRN Blood Glucose Results, Start date: 10/31/12 8:40:00, Duration: 30 day, Stop date: 11/30/12 8:39:00 Phenergan 25 mg, 1 tab, PO No Longer [place] 10/30[facility] Route: PO, Active 2012 Medical Drug form: [place] TAB, Q6H, Dosing Weight 78.2, kg, PRN Nausea & Vomiting, Start date: 10/30/12 8:06:00, Duration: 30 day, Stop date: 11/29/12 8:05:00 magnesium 1 gm, 50 mL, IVPB No Longer [place] [facility] sulfate Route: IVPB, Active 2012 Medical Drug form: [place] INJ, ONCE, Dosing Weight 78.2, kg, Start date: 10/30/12 7:44:00, Stop date: 10/30/12 7:44:00 potassium 20 mEq, 15 mL, PO No Longer [place] [facility] chloride Route: PO, Active 2012 Medical Drug form: [place] LIQ, ONCE, Dosing Weight 78.2, kg, Start date: 10/30/12 7:44:00, Stop date: 10/30/12 7:44:00 Haldol 2 mg, 0.4 mL, IV No Longer Dee Dee Jon [facility] Route: IV, Active 2012 Medical Drug form: [place] INJ, ONCE, Dosing Weight 78.2, kg, Start date: 10/30/12 5:42:00, Stop date: 10/30/12 5:42:00 tramadol 50 mg 50 mg, 1 tab, PO No Longer [place] [facility] oral tablet Route: PO, Active 2012 Medical Drug form: [place] TAB, Q4H, Dosing Weight 78.2, kg, PRN as needed for pain, Start date: 10/29/12 9:45:00, Duration: 30 day, Stop date: 11/28/12 9:44:00 Toradol 15 mg/mL 15 mg, 0.5 mL, IV No Longer [place] 10/29[facility] injectable Route: IV, Active 2012 Medical solution Drug form: [place] INJ, ONCE, Dosing Weight 78.2, kg, Start date: 10/29/12 6:54:00, Stop date: 10/29/12 6:54:00 Toradol 15 mg/mL 15 mg, 0.5 mL, IV No Longer [place] 02/23[facility] injectable Route: IV, Active 2012 Medical solution Drug form: Center INJ, ONCE, Dosing Weight 78.2, kg, Start date: 10/29/12 1:07:00, Stop date: 10/29/12 1:07:00 insulin detemir 20 unit, 0.2 SUB-Q No Longer [place] [facility] mL, Route: Active 2012 Medical SUB-Q, Drug Center form: INJ, QPM, Dosing Weight 78.2, kg, Start date: 10/28/12 21:00:00, Duration: 30 day, Stop date: 11/27/12 17:00:00 Lasix 20 mg, 2 mL, IV No Longer Funez Danay [facility] Route: IV, Active 2012 Medical Drug form: Center INJ, ONCE, Dosing Weight 78.2, kg, Start date: 10/28/12 9:25:00, Stop date: 10/28/12 9:25:00 insulin detemir 16 unit, 0.16 SUB-Q No Longer [place] 10/28[facility] mL, Route: Active 2012 Medical SUB-Q, Drug Center form: INJ, QAM, Dosing Weight 78.2, kg, Start date: 10/28/12 9:00:00, Stop date: 11/26/12 9:00:00 NovoLog FlexPen 4 unit, 0.04 SUB-Q No Longer Marvin [facility] mL, Route: Active 2012 Medical SUB-Q, Drug Center form: SOLN, TID-Before Meals, Start date: 10/28/12 7:30:00, Stop date: 11/26/12 16:30:00 magnesium 2 gm, 50 mL, IVPB No Longer [place] 10/28[facility] Fei sulfate Route: IVPB, Active 2012 Medical Drug form: Center INJ, Q2H, Dosing Weight 78.2, kg, Total dose=4 gm, Start date: 10/28/12 4:00:00, Duration: 2 doses or times, Stop date: 10/28/12 6:00:00 potassium 20 mEq, 100 IVPB No Longer [place] 10/28[facility] Fei chloride mL, Route: Active 2012 Medical IVPB, Drug Center form: INJ, Q2H, Dosing Weight 78.2, kg, Total dose=40 mEq, Start date: 10/28/12 4:00:00, Duration: 2 doses or times, Stop date: 10/28/12 6:00:00 calcium 1,000 mg, 10 IVPB No Longer [place] [facility] gluconate + mL, Route: Active 2012 Medical Sodium Chloride IVPB, Drug Center 0.9% IV 100 mL form: INJ, ONCE, Dosing Weight 78.2, kg, Start date: 10/28/12 3:53:00, Stop date: 10/28/12 3:53:00 labetalol 20 mg, Route: IVP No Longer [place] [facility] IVP, Drug Active 2012 Medical form: INJ, Center ONCE, Dosing Weight 78.2, kg, Start date: 10/27/12 19:28:00, Stop date: 10/27/12 19:28:00 labetalol 20 mg, 4 mL, IVP No Longer [place] [facility] Route: IVP, Active 2012 Medical Drug form: [place] INJ, ONCE, Dosing Weight 78.2, kg, Start date: 10/27/12 17:28:00, Stop date: 10/27/12 17:28:00 Benadryl 25 mg, 1 cap, PO No Longer [place] [facility] Route: PO, Active 2012 Medical Drug form: [place] CAP, ONCE, Dosing Weight 78.2, kg, Start date: 10/27/12 17:28:00, Stop date: 10/27/12 17:28:00 Reglan 10 mg 10 mg, Route: PO No Longer [place] [facility] oral tablet PO, Drug form: Active 2012 Medical TAB, Before Center Meals & Bedtime, Dosing Weight 78.2, kg, Start date: 10/27/12 16:30:00, Duration: 30 day, Stop date: 11/26/12 11:30:00 Reglan 5 mg, 1 mL, IV No Longer Gee Fei Route: IV, Active 2012 Medical Drug form: [place] INJ, Q8H, Dosing Weight 78.2, kg, Start date: 10/27/12 16:00:00, Duration: 30 day, Stop date: 11/26/12 8:00:00 Reglan 5 mg, 1 mL, IV No Longer Gee Fei Route: IV, Active 2012 Medical Drug form: [place] INJ, Q8H, Dosing Weight 78.2, kg, PRN Nausea, Start date: 10/27/12 13:08:00, Duration: 30 day, Stop date: 11/26/12 13:07:00 lisinopril 20 mg, 1 tab, PO No Longer Gee [facility] Route: PO, Active 2012 Medical Drug form: [place] TAB, Q12H, Dosing Weight 78.2, kg, Start date: 10/27/12 10:00:00, Duration: 30 day, Stop date: 11/26/12 9:00:00 ergocalciferol 50,000 PO No Longer Manlapaz [place] IntlUnit, 1 Active 2012 Medical cap, Route: [place] PO, Drug form: CAP, Daily, Dosing Weight 78.2, kg, Start date: 10/27/12 9:00:00, Duration: 4 day, Stop date: 10/30/12 9:00:00 magnesium oxide 400 mg, 1 tab, PO No Longer [place] [facility] Route: PO, Active 2012 Medical Drug form: [place] TAB, Daily, Dosing Weight 78.2, kg, Start date: 10/27/12 9:00:00, Duration: 30 day, Stop date: 11/25/12 9:00:00 Toprol-XL 100 mg 100 mg, 1 tab, PO No Longer [place] oral tablet, Route: PO, 2012 Medical extended release Drug form: [place] ERTAB, Daily, Start date: 10/27/12 9:00:00, Duration: 30 day, Stop date: 11/25/12 9:00:00 insulin aspart 7 unit, Route: SUB-Q No Longer Manlapaz [facility] SUB-Q, Drug Active 2012 Medical form: NIRU, [place] TID-Before Meals, Dosing Weight 78.2, kg, Start date: 10/26/12 12:00:00, Duration: 30 day, Stop date: 11/25/12 11:30:00 Insulin regular 10 unit, 0.1 SUB-Q No Longer [place] Fei mL, Route: Active 2012 Medical SUB-Q, Drug Center form: SOLN, ONCE, Dosing Weight 78.2, kg, Start date: 10/26/12 10:32:00, Stop date: 10/26/12 10:32:00 NIFEdipine 90 mg, 1 tab, PO No Longer [place] extended release Route: PO, Active 2012 Medical Drug form: [place] ERTAB, Daily, Dosing Weight 78.2, kg, Start date: 10/26/12 9:00:00, Duration: 30 day, Stop date: 11/24/12 9:00:00 metoprolol 25 mg, 1 tab, PO No Longer [place] tartrate Route: PO, Active 2012 Medical Drug form: [place] TAB, Q12H, Dosing Weight 78.2, kg, Start date: 10/26/12 9:00:00, Duration: 30 day, Stop date: 11/24/12 21:00:00 Reglan 10 mg, 1 tab, PO No Longer [place] Route: PO, Active 2012 Medical Drug form: [place] TAB, Before Meals & Bedtime, Dosing Weight 78.2, kg, Start date: 10/25/12 16:30:00, Duration: 30 day, Stop date: 11/24/12 11:30:00 potassium 20 mEq, 100 IVPB No Longer [place] chloride mL, Route: Active 2012 Medical IVPB, Drug Center form: INJ, Q2H, Dosing Weight 78.2, kg, Total dose=40 mEq, Start date: 10/25/12 16:00:00, Duration: 2 doses or times, Stop date: 10/25/12 18:00:00 magnesium 2 gm, 50 mL, IVPB No Longer [place] sulfate Route: IVPB, Active 2012 Medical Drug form: [place] INJ, Q2H, Dosing Weight 78.2, kg, Total dose=4 gm, Start date: 10/25/12 16:00:00, Duration: 2 doses or times, Stop date: 10/25/12 18:00:00 potassium 40 mEq, 2 tab, PO No Longer [place] chloride 20 mEq Route: PO, Active 2012 Medical oral tablet, Drug form: [place] extended release ERTAB, ONCE, Dosing Weight 78.2, kg, Start date: 10/25/12 14:50:00, Stop date: 10/25/12 14:50:00 Procardia XL 30 mg, 1 tab, PO No Longer Dalton [facility] Route: PO, Active 2012 Medical Drug form: Center ERTAB, ONCE, Dosing Weight 78.2, kg, Start date: 10/25/12 14:49:00, Stop date: 10/25/12 14:49:00 1/2 NS 1,000 mL 1,000 mL, IV No Longer [place] [facility] Rate: 100 Active 2012 Medical ml/hr, Infuse Center over: 10 hr, Route: IV, kg, Total Volume: 1,000, Start date: 10/25/12 13:52:00, Duration: 30 day, Stop date: 11/24/12 13:51:00 atenolol 100 mg, 1 tab, PO No Longer [place] Route: PO, Active 2012 Medical Drug form: Center TAB, Daily, Dosing Weight 78.2, kg, Start date: 10/25/12 9:00:00, Duration: 30 day, Stop date: 11/23/12 9:00:00 Protonix 40 mg, Route: IVP No Longer Pauline [facility] IVP, Drug Active 2012 Medical form: INJ, Center Daily, Dosing Weight 78.2, kg, Start date: 10/25/12 9:00:00, Duration: 30 day, Stop date: 11/23/12 9:00:00 NovoLog FlexPen 6 unit, 0.06 SUB-Q No Longer Amari [facility] mL, Route: Active 2012 Medical SUB-Q, Drug Center form: SOLN, TID-Before Meals, Start date: 10/25/12 7:30:00, Duration: 30 day, Stop date: 11/23/12 16:30:00 insulin lispro 6 unit, Route: [facility] SUB-Q, Active 2012 Medical TID-Before Center Meals, Dosing Weight 78.2, kg, Start date: 10/25/12 7:30:00, Duration: 30 day, Stop date: 11/23/12 16:30:00 Lactated Ringers 1,000 mL, IV No Longer Dee Dee Jon [facility] IV 1,000 mL Rate: 250 Active 2012 Medical ml/hr, Infuse Center over: 4 hr, Route: IV, kg, Total Volume: 1,000, Start date: 10/25/12 5:50:00, Duration: 30 day, Stop date: 11/24/12 5:49:00 Lactated Ringers 1,000 mL, IV No Longer Funez [facility] (Bolus) IV 1,000 Rate: 100 Active 2012 Medical mL ml/hr, Infuse Center over: 10 hr, Route: IV, kg, Total Volume: 1,000, Start date: 10/25/12 5:50:00, Duration: 1 doses or times, Stop date: 10/25/12 15:49:00 insulin aspart 9 unit, 0.09 SUB-Q No Longer Manlapaz [facility] mL, Route: Active 2012 Medical SUB-Q, Drug Center form: SOLN, TID-Before Meals, Dosing Weight 78.2, kg, PRN Blood Glucose Results, Start date: 10/25/12 3:53:00, Duration: 30 day, Stop date: 11/24/12 3:52:00 glucagon 1 mg, Route: IM No Longer Funez [facility] 10/25[facility] IM, Drug form: Active 2012 Medical PDR/INJ, PRN, Center Dosing Weight 78.2, kg, PRN Blood Glucose Results, Start date: 10/25/12 3:53:00, Duration: 30 day, Stop date: 11/24/12 4:52:00 Dextrose 50% 12.5 gm, 25 IVP No Longer Funez [facility] 10/25[facility] Syringe mL, Route: Active 2012 Medical IVP, Drug Center Form: INJ, Dosing Weight 78.2, kg, PRN, PRN Blood Glucose Results, Start date: 10/25/12 3:53:00, Duration: 30 day, Stop date: 11/24/12 4:52:00 Dextrose 50% 25 mL, Route: IVP No Longer Funez [facility] 10/25[facility] Syringe IVP, Dosing Active 2012 Medical Weight 78.2, Center kg, PRN, PRN Blood Glucose Results, Start date: 10/25/12 3:52:00, Duration: 30 day, Stop date: 11/24/12 4:51:00 glucagon 1 mg, Route: IM No Longer Funez Kamel Fei IM, PRN, Active 2012 Medical Dosing Weight Center 78.2, kg, PRN Blood Glucose Results, Start date: 10/25/12 3:52:00, Duration: 30 day, Stop date: 11/24/12 4:51:00 Neutra-Phos 2 pkt, Route: PO No Longer Fei PO, Drug Form: Active 2012 Medical PDR/REC, Center Dosing Weight 78.2, kg, ONCE, Start date: [...] pkt, Route: PO No Longer Funez Kamel Fei PO, Drug Form: Active 2012 Medical PDR/REC, Center Dosing Weight 78.2, kg, ONCE, Start date: 10/24/12 20:35:00, Stop date: 10/24/12 20:35:00 potassium 20 mEq, 100 IVPB No Longer Funez [facility] chloride mL, Route: Active 2012 Medical IVPB, Drug Center form: INJ, ONCE, Dosing Weight 78.2, kg, Start date: 10/24/12 20:34:00, Stop date: 10/24/12 20:34:00 enalapril 1.25 mg, 1 mL, IVP No Longer Funez [facility] Route: IVP, Active 2012 Medical Drug form: [place] INJ, Q6H, Dosing Weight 78.2, kg, Start date: 10/24/12 18:00:00, Duration: 30 day, Stop date: 11/23/12 12:00:00 morphine Sulfate 4 mg, 1 mL, IVP No Longer [place] [facility] Route: IVP, 2012 Medical Drug form: [place] INJ, ONCE, Dosing Weight 78.2, kg, Start date: 10/24/12 16:56:00, Stop date: 10/24/12 16:56:00 insulin lispro 6 unit, SUB-Q, SUB-Q No Longer [place] TID-Before Active 2012 Medical Meals, Center Substitution Allowed Levemir 15 unit, SUB-Q No Longer [place] SUB-Q, Q12H, Active 2012 Medical Substitution Center Allowed D5W 1/2NS 1,000 1,000 mL, IV No Longer Funez [facility] mL Rate: 125 Active 2012 Medical ml/hr, Infuse Center over: 8 hr, Route: IV, kg, Total Volume: 1,000, Start date: 10/24/12 16:06:00, Duration: 30 day, Stop date: 11/23/12 16:05:00 metoprolol 25 mg, 1 tab, PO No Longer Funez [facility] tartrate Route: PO, Active 2012 Medical Drug form: [place] TAB, Q8H, Dosing Weight 78.2, kg, Start date: 10/24/12 16:00:00, Duration: 30 day, Stop date: 11/23/12 8:00:00 clonazepam 0.5 mg, 1 tab, PO No Longer Dee Dee Jon Fei Route: PO, Active 2012 Medical Drug form: [place] TAB, ONCE, Dosing Weight 78.2, kg, Start date: 10/24/12 15:03:00, Stop date: 10/24/12 15:03:00 NIFEdipine 60 mg, 1 tab, PO No Longer [place] [facility]i extended release Route: PO, Active 2012 Medical Drug form: [place] ERTAB, Daily, Dosing Weight 78.2, kg, Start date: 10/24/12 14:32:00, Duration: 30 day, Stop date: 11/23/12 9:00:00 Saline Flush 10 mL, Route: IVP No Longer Martínez Fei 0.9% IVP, Drug Active 2012 Medical Form: INJ, [place] Dosing Weight 78.2, kg, PRN, PRN Line Flush, Start date: 10/24/12 13:41:00, Duration: 30 day, Stop date: 11/23/12 13:41:00 D5W 1/2NS + KCL 1,000 mL, IV No Longer Funez [facility] Fei 40mEq/L 1000ml Rate: 125 2012 Medical (Premix) 1,000 ml/hr, Infuse Center mL over: 8 hr, Route: IV, kg, Total Volume: 1,000, Priority: STAT, Start date: 10/24/12 12:37:00, Duration: 30 day, Stop date: 11/23/12 12:36:00 Lactated Ringers 1,000 mL, IV No Longer Funez [facility] Fei (Bolus) IV 1,000 Rate: 100 Active 2012 Medical mL ml/hr, Infuse Center over: 10 hr, Route: IV, kg, Total Volume: 1,000, Start date: 10/24/12 12:24:00, Duration: 30 day, Stop date: 11/23/12 12:23:00 lisinopril 40 mg, 2 tab, PO No Longer Gee Fei Route: PO, Active 2012 Medical Drug form: [place] TAB, Daily, Dosing Weight 78.2, kg, Start date: 10/24/12 12:16:00, Stop date: 11/23/12 9:00:00 potassium 20 mEq, 100 IVPB No Longer Funez [facility] Fei chloride mL, Route: Active 2012 Medical IVPB, Drug Center form: INJ, Q2H, Dosing Weight 78.2, kg, Total dose=60 mEq, Start date: 10/24/12 12:00:00, Duration: 3 doses or times, Stop date: 10/24/12 16:00:00, For K=3.0 - 3.4mEq/L
F or K=3.0 - 3.4mEq/L Lactated Ringers 1,000 mL, IV No Longer Dee Dee [facility] Fei Injection IV Rate: 150 Active 2012 Medical 1,000 mL ml/hr, Infuse Center over: 6.7 hr, Route: IV, kg, Total Volume: 1,000, Start date: 10/24/12 11:50:00, Duration: 30 day, Stop date: 11/23/12 11:49:00 lisinopril 20 mg, 1 tab, PO No Longer Funez [facility] 10/24[facility] Route: PO, Active 2012 Medical Drug form: [place] TAB, Daily, Dosing Weight 78.2, kg, Priority: STAT, Start date: 10/24/12 11:44:00, Duration: 30 day, Stop date: 11/23/12 9:00:00 Effient 10 mg, 1 tab, PO No Longer Tanikella [facility] Route: PO, Active 2012 Medical Drug form: [place] TAB, Daily, Dosing Weight 78.2, kg, Start date: 10/24/12 11:00:00, Duration: 30 day, Stop date: 11/23/12 9:00:00 lisinopril 5 mg, 1 tab, PO No Longer Dee Dee [facility] 10/24[facility] Route: PO, Active 2012 Medical Drug form: [place] TAB, Daily, Dosing Weight 78.2, kg, Priority: NOW, Start date: 10/24/12 10:53:00, Duration: 30 day, Stop date: 11/23/12 9:00:00 potassium 40 mEq, 2 tab, PO No Longer Funez [facility] Fei chloride Route: PO, Active 2012 Medical Drug form: [place] ERTAB, ONCE, Dosing Weight 78.2, kg, Priority: NOW, Start date: 10/24/12 10:50:00, Stop date: 10/24/12 10:50:00 magnesium 2 gm, 50 mL, IVPB No Longer Tanikella [place] sulfate Route: IVPB, Active 2012 Medical Drug form: [place] INJ, ONCE, Dosing Weight 78.2, kg, Total dose=2 gm, Priority: NOW, Start date: 10/24/12 10:50:00, Duration: 1 doses or times, Stop date: 10/24/12 10:50:00 aspirin 81 mg 81 mg, 1 tab, PO No Longer Tanikella [place] tablet, enteric Route: PO, Active 2012 Medical coated Drug form: [place] ECTAB, Daily, Dosing Weight 78.2, kg, Priority: NOW, Start date: 10/24/12 10:43:00, Duration: 30 day, Stop date: 11/23/12 9:00:00 metoprolol 12.5 mg, 1 ea, PO No Longer Funez Kamnigel [place] tartrate Route: PO, Active 2012 Medical Drug form: [place] TAB, Q12H, Dosing Weight 78.2, kg, Priority: NOW, Start date: 10/24/12 10:42:00, Duration: 30 day, Stop date: 11/23/12 9:00:00 nitroglycerin 50 250 mL, Rate: IV No Longer Dee Dee Jon [place] mg as directed, Active 2012 Medical Route: IV, kg, [place] Total Volume: 250, Start date: 10/24/12 10:00:00, Duration: 30 day, Stop date: 11/23/12 9:59:00 Zofran 8 mg, 4 mL, IV No Longer [place] Route: IV, Active 2012 Medical Drug form: [place] INJ, Q8H, Dosing Weight 78.2, kg, PRN Nausea, Priority: NOW, Start date: 10/24/12 7:56:00, Stop date: 11/23/12 7:55:00 metoprolol 5 5 mg, Route: IV No Longer O[place] mg/5 ml INJ IV, ONCE, Active 2012 Medical Dosing Weight Center 78.2, kg, Priority: NOW, Start date: 10/24/12 7:55:00, Stop date: 10/24/12 7:55:00 nitroglycerin 100 mg, 250 IV No Longer Orozco Fei 100 mg in 250 ml mL, Rate: Active 2012 Medical D5W Premix Infuse as Center (titrate) 100 mg directed, Dosing Weight 78.2, kg, Route: IV, Total Volume: 250 mL, Start date: 10/24/12 7:55:00, Duration: 30 day, Stop date: 11/23/12 8:54:00, Replace Every: 24 hr aspirin 200 mg, 1 MA No Longer Orozco Fei supp, Route: Active 2012 Medical MA, Drug form: [place] SUPP, ONCE, Dosing Weight 78.2, kg, Priority: NOW, Start date: 10/24/12 7:54:00, Stop date: 10/24/12 7:54:00 metoprolol 5 5 mg, 5 mL, IV No Longer Brian [place] mg/5 ml INJ Route: IV, Active 2012 Medical Drug form: [place] INJ, ONCE, Dosing Weight 113.636, kg, Priority: STAT, Start date: 10/23/12 21:01:00, Stop date: 10/23/12 21:01:00 Zocor 40 mg, 1 tab, PO No Longer Brian [place] Route: PO, Active 2012 Medical Drug form: [place] TAB, Bedtime, Dosing Weight 113.636, kg, Start date: 10/23/12 21:00:00, Duration: 30 day, Stop date: 11/21/12 21:00:00 morphine Sulfate 2 mg, 1 mL, IVP No Longer Brian Fei Route: IVP, Active 2012 Medical Drug form: [place] INJ, ONCE, Dosing Weight 113.636, kg, Priority: STAT, Start date: 10/23/12 19:49:00, Stop date: 10/23/12 19:49:00 heparin 4,700 unit, IV No Longer Mosley Fei 4.7 mL, Route: Active 2012 Medical IV, Drug form: [place] INJ, PRN, PRN Abnormal Lab Result, Start date: 10/23/12 19:40:00, Duration: 30 day, Stop date: 11/22/12 20:39:00 heparin 2,300 unit, IV No Longer Mosley Fei 2.3 mL, Route: Active 2012 Medical IV, Drug form: [place] INJ, PRN, PRN Abnormal Lab Result, Start date: 10/23/12 19:37:00, Duration: 30 day, Stop date: 11/22/12 20:36:00 heparin 4,000 unit, 4 IV No Longer Mosley Fei mL, Route: IV, Active 2012 Medical Drug form: [place] INJ, ONCE, Start date: 10/23/12 19:31:00, Stop date: 10/23/12 19:31:00 aspirin 325 mg, 1 tab, PO No Longer Tanikella Fei Route: PO, Active 2012 Medical Drug form: [place] TAB, Daily, Dosing Weight 113.636, kg, Priority: NOW, Start date: 10/23/12 19:03:00, Duration: 30 day, Stop date: 11/22/12 9:00:00 Heparin - 25,000 unit, IV No Longer Tanikella Fei infusion (ACS 500 mL, Rate: Active 2012 Medical Protocol) Start at Center heparin 25,000 units/kg/hr units in D5W 500 (Max Initial mL Premix 25,000 dose 1,000 un, unit Dosing Weight 78.27, kg, Route: IV, Total Volume: 500 ml, Start date: 10/23/12 17:57:00, Duration: 30 day, Stop date: 11/22/12 17:56:00, Replace Every: 24 hr Visipaque 126 mL, Route: IVP No Longer Pauline Fei 320mg/ml IVP, Drug Active 2012 Medical Form: SOLN, [place] Dosing Weight 113.636, kg, ONCALL, STAT, Start date: 10/23/12 16:52:00, Duration: 1 doses or times, Dose=2.2ml/kg, Max [id number] -- "To be infused by Radiology Staff ONLY"
Dose =2.2ml/kg, Max [id number] -- "To be infused by Radiology Staff ONLY" magnesium 2 gm, 50 mL, IVPB No Longer Isaac Fei sulfate Route: IVPB, Active 2012 Medical Drug form: [place] INJ, ONCE, Dosing Weight 113.636, kg, Start date: 10/23/12 16:10:00, Duration: 1 doses or times, Stop date: 10/23/12 16:10:00, For Mg=1.8 - 2 mg/dL
For Mg=1.8 - 2 mg/dL D5W 1/2NS 1,000 1,000 mL, IV No Longer Funez Kamel [place] mL Rate: 200 Active 2012 Medical ml/hr, Infuse Center over: 5 hr, Route: IV, kg, Total Volume: 1,000, Start date: 10/23/12 14:21:00, Stop date: 11/22/12 14:20:00 Omnipaque 130 mL, Route: IVP No Longer Pauline Fei 350mg/ml IVP, Drug Active 2012 Medical Form: [facility] Dosing Weight 113.636, kg, ONCALL, STAT, Start date: 10/23/12 10:42:00, Duration: 1 doses or times, Dose=2.2ml/kg, Max [id number] -- "To be infused by Radiology Staff ONLY"
Dose =2.2ml/kg, Max [id number] -- "To be infused by Radiology Staff ONLY" Insulin 100 mL, Rate: IV No Longer Vieques Fei (regular) 0.1units/kg/ho 2012 Medical Titrate IV ur Titrate, [place] additive 100 Dosing Weight unit + Sodium 113.636, kg, Chloride 0.9% Route: IV, (titrate) 100 mL Total Volume: 101, Duration: 30 day, Stop date: 11/22/12 10:16:00, Replace Every: 24 hr Dextrose 50% 25 gm, 50 ml, IVP No Longer Isaac Fei Syringe Route: IVP, Active 2012 Medical Drug Form: [place] INJ, Dosing Weight 113.636, kg, PRN, PRN Blood Glucose Results, Start date: 10/23/12 10:16:00, Duration: 30 day, Stop date: 11/22/12 11:15:00 Sodium Chloride 1,000 mL, IV No Longer Isaac [place] 0.9% IV 1,000 mL Rate: 250 Active 2012 Medical ml/hr, Infuse Center over: 4 hr, Route: IV, kg, Total Volume: 1,000, Start date: 10/23/12 10:16:00, Stop date: 11/22/12 10:20:00 folic acid 1 mg Route: IV, IV No Longer Kristy [place] + Vitamin B1 100 Q24H, Start Active 2012 Medical mg + M.V.I. date: 10/23/12 Center Adult 10 mL + 9:00:00, potassium Duration: 3 chloride 20 mEq day, Stop + Dextrose 5% date: 10/25/12 9:00:00 Sodium Chloride 1,000 mL, IV No Longer Isaac [place] 0.9% IV 1,000 mL Rate: 100 Active 2012 Medical + M.V.I.-12 10 ml/hr, Infuse Center mL Daily + folic over: 10.1 hr, acid IV 1 mg Route: IV, kg, Daily + thiamine Total Volume: IV 1 1,011.2, Start date: 10/23/12 8:41:00, Duration: 3 day, Stop date: 10/26/12 8:40:00 Insulin regular 100 mL, Rate: IVPB No Longer Isaac [place] 100 unit + Start Insulin Active 2012 Medical Sodium Chloride Drip Per ICU Center 0.9% (titrate) Protocol, 100 mL Dosing Weight 113.636, kg, Route: IVPB, Total Volume: 101, Duration: 30 day, Stop date: 11/22/12 8:17:00, Replace Every: 24 hr, Initial Insulin Drip Rate (units/hour)=( Fasting Blood Glucose-60)X0. 03 "...
Initi al Insulin Drip Rate (units/hour)=( Fasting Blood Glucose-60)X0. 03 "multiplier". Dextrose 50% 25 gm, 50 mL, IVP No Longer Isaac [place] Syringe Route: IVP, Active 2012 Medical Drug Form: Center INJ, Dosing Weight 113.636, kg, PRN, PRN Blood Glucose Results, Start date: 10/23/12 8:17:00, Duration: 30 day, Stop date: 11/22/12 9:16:00 normal saline 1,000 mL, IV No Longer Isaac Fei 0.9% IV 1,000 mL Rate: 150 Active 2012 Medical ml/hr, Infuse [place] over: 6.7 hr, Route: IV, kg, Total Volume: 1,000, Start date: 10/23/12 5:07:00, Duration: 30 day, Stop date: 11/22/12 5:06:00 NS (Bolus) IV 1,000 mL, 0 IV No Longer Kristy Fei ml/hr, Route: Active 2012 Medical IV, Drug Form: [place] INJ, Dosing Weight 113.636, kg, ONCE, STAT, Start date: 10/23/12 5:06:00, Duration: 1 doses or times, Stop date: 10/23/12 5:06:00 hydrALAZINE 10 mg, 0.5 mL, IV No Longer Dee Dee Jon Fei Route: IV, Active 2012 Medical Drug form: [place] INJ, Q4H, Dosing Weight 113.636, kg, PRN Other -See Comment, Start date: 10/23/12 0:38:00, Duration: 30 day, Stop date: 11/22/12 0:37:00, hypertesnion acetaminophen 650 mg, 1 MA No Longer Kristy Fei supp, Route: Active 2012 Medical MA, Drug form: [place] SUPP, Q6H, Dosing Weight 113.636, kg, PRN Fever, Start date: 10/23/12 0:37:00, Duration: 30 day, Stop date: 11/22/12 0:36:00 Dilaudid 0.5 mg, 0.25 IV No Longer Dalton Fei mL, Route: IV, Active 2012 Medical Drug form: [place] INJ, Q2H, Dosing Weight 113.636, kg, PRN Pain, Start date: 10/23/12 0:37:00, Duration: 30 day, Stop date: 11/22/12 0:36:00 metoprolol 5 5 mg, 5 mL, IVP No Longer Dee Dee Jon Fei mg/5 ml INJ Route: IVP, Active 2012 Medical Drug form: [place] INJ, Q3H, Dosing Weight 113.636, kg, PRN Hypertension, Start date: 10/23/12 0:35:00, Duration: 30 day, Stop date: 11/22/12 0:34:00 Insulin regular 2 unit, 0.02 SUB-Q No Longer Isaac [place] mL, Route: Active 2012 Medical SUB-Q, Drug Center form: SOLN, Sliding Scale, Dosing Weight 113.636, kg, PRN Blood Glucose Results, Start date: 10/23/12 0:26:00, Duration: 30 day, Stop date: 11/22/12 1:25:00 glucagon 1 mg, Route: IM No Longer Isaac [place] IM, Drug form: Active 2012 Medical PDR/INJ, PRN, Center Dosing Weight 113.636, kg, PRN Blood Glucose Results, Start date: 10/23/12 0:26:00, Duration: 30 day, Stop date: 11/22/12 1:25:00 Dextrose 50% 25 gm, 50 mL, IVP No Longer Isaac [facility] Syringe Route: IVP, Active 2012 Medical Drug Form: [place] INJ, Dosing Weight 113.636, kg, PRN, PRN Blood Glucose Results, Start date: 10/23/12 0:26:00, Duration: 30 day, Stop date: 11/22/12 1:25:00 Zofran ODT 8 mg, 1 tab, PO No Longer Steward [place] Route: PO, Active 2012 Medical Drug form: [place] TABDIS, Q8H, Dosing Weight 113.636, kg, PRN Nausea, Start date: 10/23/12 0:02:00, Stop date: 11/22/12 0:01:00 heparin 5,000 unit, SUB-Q No Longer Brian [place] Route: SUB-Q, Active 2012 Medical Q8H, Dosing Center Weight 113.636, kg, Start date: 10/23/12 0:00:00, Duration: 30 day, Stop date: 11/21/12 16:00:00 carvedilol 25 mg Daily, No Longer [facility] oral tablet Substitution Active 2012 Medical Allowed [place] Diovan HCT 160 1 tab, PO, PO No Longer Fei mg-12.5 mg oral Daily, 30 tab, Active 2012 Medical tablet Substitution Center Allowed, Maintenance, TAB D5W 1/2NS + KCL [...] Route: IVPB, Active 2012 Medical Drug form: [place] INJ, Q6H, PRN Nausea, Start date: 10/22/12 22:31:00, Stop date: 11/21/12 22:30:00 Lortab 500 15 ml, PO, PO Active Pauline Fei mg-7.5 mg/15 mL Q4H, PRN, 250 2012 Medical oral elixir mL, for pain, Center Substitution Allowed, Maintenance, ELIX Coreg 25 mg, 1 tab, PO No Longer Sushila Fei Route: PO, Active 2012 Medical Drug form: [place] TAB, Q12H, Dosing Weight 118.2, kg, Start date: 10/07/12 21:00:00, Duration: 30 day, Stop date: 11/06/12 9:00:00 Cipro 500 mg, 10 mL, [place] No Longer Pauline Fei Route: NJ, Active 2012 Medical Drug form: [place] SUSP, Q12H, Dosing Weight 118.2, kg, Start date: 10/07/12 20:00:00, Duration: 7 day, Stop date: 10/14/12 8:00:00 Diovan 160 mg, 1 tab, PO No Longer Sushila Fei Route: PO, Active 2012 Medical Drug form: [place] TAB, Daily, Dosing Weight 118.2, kg, Start date: 10/07/12 17:00:00, Duration: 30 day, Stop date: 11/06/12 9:00:00 ciprofloxacin 500 mg, 10 mL, [place] No Longer Pauline [facility] Route: NJ, Active 2012 Medical Drug form: Center SUSP, Q12H, Dosing Weight 118.2, kg, Start date: 10/07/12 14:30:00, Duration: 7 day, Stop date: 10/14/12 9:00:00 Mark 325 mg-10 15 mL, Route: PO No Longer Sushila [facility] mg / 15 mL oral PO, Drug Form: Active 2012 Medical solution SOLN, Dosing Center Weight 118.2, kg, Q4H, PRN For Pain, Start date: 10/07/12 14:22:00, Duration: 30 day, Stop date: 11/06/12 14:21:00 Diovan 160 mg, 1 tab, PO No Longer Sushila [facility] Route: PO, Active 2012 Medical Drug form: Center TAB, Daily, Dosing Weight 118.2, kg, Start date: 10/07/12 14:00:00, Duration: 30 day, Stop date: 11/06/12 9:00:00 Coreg 25 mg, 1 tab, PO No Longer Sushila [facility] Route: PO, Active 2012 Medical Drug form: Center TAB, Q12H, Dosing Weight 118.2, kg, Start date: 10/07/12 14:00:00, Duration: 30 day, Stop date: 11/06/12 9:00:00 potassium 20 mEq, 100 IVPB [facility] chloride mL, Route: Active 2012 Medical IVPB, Drug Center form: INJ, ONCE, Dosing Weight 118.2, kg, Total dose=20 mEq, Start date: 10/07/12 7:53:00, Duration: 1 doses or times, Stop date: 10/07/12 7:53:00, For K=3.5 - 3.9 mEq/L
For K=3.5 - 3.9 mEq/L Blistex 1 appl, Route: TOP No Longer Dru [facility] TOP, PRN, Drug Active 2012 Medical form: STIC PRN Center Other -See Comment, Start date: 10/06/12 22:48:00, Duration: 30 day, Stop date: 11/05/12 22:47:00 Blistex Lip [place] Route: TOP, TOP No Longer [facility] Dosing Weight Active 2012 Medical 118.2, kg, Center PRN, PRN, Start date: 10/06/12 22:46:00, Duration: 30 day, Stop date: 11/05/12 22:45:00, prn Dilaudid 0.2 mg, 0.1 IV No Longer Sushila Fei mL, Route: IV, Active 2012 Medical Drug form: [place] INJ, Q4H, Dosing Weight 118.2, kg, PRN Pain, Start date: 10/06/12 14:47:00, Duration: 30 day, Stop date: 11/05/12 14:46:00 Zofran 4 mg, 2 mL, IV No Longer Low [place] Route: IV, Active 2012 Medical Drug form: [place] INJ, Q4H, Dosing Weight 118.2, kg, PRN Nausea, Start date: 10/06/12 14:47:00, Duration: 30 day, Stop date: 11/05/12 14:46:00 metoprolol 5 5 mg, 5 mL, IVP No Longer Sushila [place] mg/5 ml INJ Route: IVP, Active 2012 Medical Drug form: [place] INJ, Q6H, Dosing Weight 118.2, kg, Start date: 10/06/12 12:00:00, Duration: 30 day, Stop date: 11/05/12 6:00:00 magnesium 2 gm, 50 mL, IVPB No Longer Low [place] sulfate Route: IVPB, 2012 Medical Drug form: [place] INJ, Q2H, Dosing Weight 118.2, kg, Total dose=4 gm, Start date: 10/06/12 12:00:00, Duration: 2 doses or times, Stop date: 10/06/12 14:00:00 dexamethasone 4 mg, 1 mL, IV No Longer Sushila Fei Route: IV, Active 2012 Medical Drug form: [place] INJ, ONCE, Start date: 10/06/12 9:00:00, Stop date: 10/06/12 9:00:00 acetaminophen-hy 30 mL, Route: PO No Longer Sushila Fei drocodone 325 PO, Drug Form: Active 2012 Medical mg-10 mg/15 mL SOLN, Q4H, PRN [place] oral solution Pain, Start date: 10/06/12 7:33:00, Duration: 30 day, Stop date: 11/05/12 7:32:00 morphine Sulfate 2 mg, 1 mL, IVP No Longer Low [place] Route: IVP, Active 2012 Medical Drug form: Center INJ, Q2H, Dosing Weight 118.2, kg, PRN Pain, Start date: 10/05/12 23:45:00, Duration: 30 day, Stop date: 11/04/12 23:44:00 Levemir FlexPen 20 unit, 0.2 SUB-Q No Longer Sushila Fei mL, Route: Active 2012 Medical SUB-Q, Drug Center form: INJ, Q12H, Start date: 10/05/12 21:00:00, Duration: 30 day, Stop date: 11/04/12 9:00:00 carvedilol 25 mg, 1 tab, PO No Longer Sushila Fei Route: PO, Active 2012 Medical Drug form: [place] TAB, Q12H, Dosing Weight 118.2, kg, Start date: 10/04/12 21:00:00, Duration: 30 day, Stop date: 11/03/12 9:00:00 Mark 325 mg-10 30 mL, Route: PO No Longer Allenson Fei mg / 15 mL oral PO, Drug Form: Active 2012 Medical solution SOLN, Dosing Center Weight 118.2, kg, Q4H, PRN Pain Score 6-10, Start date: 10/04/12 17:20:00, Duration: 30 day, Stop date: 11/03/12 17:19:00 Diovan 160 mg, 1 tab, PO No Longer Sushila Fei Route: PO, Active 2012 Medical Drug form: Center TAB, Daily, Dosing Weight 118.2, kg, Start date: 10/04/12 14:00:00, Duration: 30 day, Stop date: 11/03/12 9:00:00 Trandate 10 mg, 2 mL, IVP No Longer Low Fei Route: IVP, Active 2012 Medical Drug form: Center INJ, Q4H, PRN Elevated BP, Start date: 10/04/12 9:05:00, Duration: 30 day, Stop date: 11/03/12 9:04:00 hydrALAZINE 20 mg, 1 mL, IVP No Longer Low [place] Route: IVP, Active 2012 Medical Drug form: Center INJ, Q4H, Dosing Weight 118.2, kg, PRN Elevated BP, Start date: 10/04/12 9:00:00, Duration: 30 day, Stop date: 11/03/12 8:59:00, sbp > 160 heparin 5,000 unit, 1 SUB-Q No Longer Sushila [place] mL, Route: Active 2012 Medical SUB-Q, Drug Center form: INJ, Q8H, Start date: 10/04/12 8:00:00, Duration: 30 day, Stop date: 11/03/12 0:00:00 Lactated Ringers 1,000 mL, IV No Longer Carpenter [place] Injection IV Rate: 125 Active 2012 Medical 1,000 mL ml/hr, Infuse Center over: 8 hr, Route: IV, kg, Total Volume: 1,000, Start date: 10/04/12 7:38:00, Stop date: 11/03/12 7:37:00 Levemir 20 unit, 0.2 SUB-Q No Longer Low [place] mL, Route: Active 2012 Medical SUB-Q, Drug Center form: INJ, Q12H, Dosing Weight 118.2, kg, Priority: NOW, Start date: 10/04/12 7:02:00, Duration: 30 day, Stop date: 11/02/12 21:00:00 hydrALAZINE 10 mg, 0.5 mL, IVP No Longer Low [place] Route: IVP, Active 2012 Medical Drug form: Center INJ, ONCE, Dosing Weight 118.2, kg, Start date: 10/04/12 6:53:00, Stop date: 10/04/12 6:53:00 labetalol 10 mg, 2 mL, IVP No Longer Low [place] Route: IVP, Active 2012 Medical Drug form: Center INJ, Q15Min, Dosing Weight 118.2, kg, PRN Hypertension, Start date: 10/04/12 5:11:00, Duration: 3 doses or times, Stop date: Limited # of times Insulin regular 12 unit, 0.12 SUB-Q No Longer Allenson 01/29[facility] mL, Route: Active 2012 Medical SUB-Q, Drug Center form: SOLN, Sliding Scale, Dosing Weight 118.2, kg, PRN Blood Glucose Results, Start date: 10/04/12 0:40:00, Duration: 30 day, Stop date: 11/03/12 0:39:00 Dextrose 50% 25 gm, 50 mL, IVP No Longer [facility] Syringe Route: IVP, Active 2012 Medical Drug Form: Center INJ, Dosing Weight 118.2, kg, PRN, PRN Blood Glucose Results, Start date: 10/04/12 0:40:00, Duration: 30 day, Stop date: 11/03/12 0:39:00 glucagon 1 mg, Route: IM No Longer [facility] IM, Drug form: Active 2012 Medical PDR/INJ, PRN, Center Dosing Weight 118.2, kg, PRN Blood Glucose Results, Start date: 10/04/12 0:40:00, Duration: 30 day, Stop date: 11/03/12 0:39:00 Ofirmev 1,000 mg, 100 IV No Longer [facility] 10/04[facility] mL, Route: IV, Active 2012 Medical Drug form: [place] INJ, Q6H, Start date: 10/03/12 18:00:00, Duration: 4 doses or times, Stop date: 10/04/12 12:00:00 Mefoxin 2 gm, Route: IVPB No Longer [facility] 10/03[facility] IVPB, Drug Active 2012 Medical form: INJ, [place] ABXQ8H, Start date: 10/03/12 16:00:00, Duration: 2 doses or times, Stop date: 10/04/12 0:00:00 Lopressor 5 mg, 5 mL, IV No Longer Low 10/03[facility] Route: IV, Active 2012 Medical Drug form: [place] INJ, Q6H, Start date: 10/03/12 16:00:00, Duration: 30 day, Stop date: 11/02/12 10:00:00 Humulin R 100 10 unit, 0.1 SUB-Q No Longer [facility] 10/03[facility] units/mL mL, Route: Active 2012 Medical injectable SUB-Q, Drug Center solution form: SOLN, TID-Before Meals, PRN Blood Glucose Results, Start date: 10/03/12 14:30:00, Duration: 30 day, Stop date: 11/02/12 14:29:00 Dextrose 50% in 50 mL, Route: IV No Longer Allenson [facility] Water IV IV, Start Active 2012 Medical date: 10/03/12 Center 14:29:00, Duration: 30 day, Stop date: 11/02/12 14:28:00, PRN Blood Glucose Results Dextrose 50% in 25 mL, Route: IVP No Longer Allenson [facility] Water IV IVP, Start Active 2012 Medical date: 10/03/12 Center 14:28:00, Duration: 30 day, Stop date: 11/02/12 14:27:00, PRN Blood Glucose Results Zofran 4 mg, 2 mL, IVP No Longer Low [facility] Route: IVP, Active 2012 Medical Drug form: Center INJ, Q8H, PRN Nausea, Start date: 10/03/12 14:22:00, Duration: 30 day, Stop date: 11/02/12 14:21:00 naloxone 0.2 mg, 0.5 IV No Longer [facility] mL, Route: IV, Active 2012 Medical Drug form: Center INJ, PRN, PRN Narcotic Reversal, Start date: 10/03/12 14:21:00, Duration: 30 day, Stop date: 11/02/12 14:20:00 hydromorphone 15 IV, Start IV No Longer Low [facility] mg date: 10/03/122012 Medical 14:19:00, Center Duration: 30, 30 ml, 118.2 Phenergan 12.5 mg, 0.5 IVPB No Longer Bagshahi [facility] mL, Route: Active 2012 Medical IVPB, Drug Center form: INJ, Q4H, PRN Nausea, Start date: 10/03/12 14:08:00, Duration: 30 day, Stop date: 11/02/12 14:07:00 Phenergan 12.5 mg, 0.5 IM No Longer Bagshahi [facility] mL, Route: IM, Active 2012 Medical Drug form: Center INJ, Q4H, PRN Nausea, Start date: 10/03/12 14:07:00, Duration: 30 day, Stop date: 11/02/12 14:06:00 Benadryl 25 mg, 0.5 mL, IM No Longer Sushila [place] Route: IM, Active 2012 Medical Drug form: Center INJ, Bedtime, PRN Insomnia, Start date: 10/03/12 14:04:00, Duration: 30 day, Stop date: 11/02/12 14:03:00 Lactated Ringers 1,000 mL, IV No Longer Low [facility] Injection IV Rate: 125 Active 2012 Medical 1,000 mL ml/hr, Infuse Center over: 8 hr, Route: IV, kg, Total Volume: 1,000, Start date: 10/03/12 14:00:00, Duration: 30 day, Stop date: 11/02/12 13:59:00 ondansetron 4 mg, 2 mL, IVP No Longer Jose [facility] Route: IVP, Active 2012 Medical Drug form: Center INJ, ONCE, Dosing Weight 118.182, kg, PRN Nausea & Vomiting, Start date: 10/03/12 11:00:00 acetaminophen-ox 1 tab, Route: PO No Longer Jose Fei ycodone 325 mg-5 PO, Drug Form: Active 2012 Medical mg oral tablet TAB, Dosing Center Weight 118.182, kg, Q4H, PRN Pain Score 1-3, Start date: 10/03/12 11:00:00, Stop date: 10/04/12 0:00:00 hydromorphone 0.5 mg, 0.25 IVP No Longer Jose Fei mL, Route: Active 2012 Medical IVP, Drug Center form: INJ, Q5Min, Dosing Weight 118.182, kg, PRN Pain Score 4-6, Start date: 10/03/12 11:00:00, Duration: 5 doses or times, Stop date: 10/04/12 0:00:00 Lactated Ringers 1,000 mL, IV No Longer Jose [facility] Injection IV Rate: 50 Active 2012 Medical 1,000 mL ml/hr, Infuse Center over: 20 hr, Route: IV, kg, Total Volume: 1,000, Start date: 10/03/12 11:00:00, Duration: 30 day, Stop date: 11/02/12 10:59:00 heparin 5,000 unit, 1 SUB-Q No Longer Sushila [place] mL, Route: Active 2012 Medical SUB-Q, Drug Center form: INJ, PRE OP, Start date: 10/03/12 6:00:00, Duration: 1 day, Stop date: 10/04/12 5:59:00 scopolamine 1 patch, TOP No Longer Sushila [place] Route: TOP, Active 2012 Medical Drug form: Center ERFILM, PRE OP, Start date: 10/03/12 6:00:00, Duration: 1 day, Stop date: 10/04/12 5:59:00 Mefoxin 2 gm, Route: IVPB No Longer Sushila [place] IVPB, Drug Active 2012 Medical form: INJ, PRE Center OP, Priority: STAT, Start date: 10/03/12 5:50:00, Duration: 1 day, Stop date: 10/04/12 5:49:00 Mobic 15 mg oral 10 mg, PO, PO Active [place] tablet Daily, 30 tab, 2012 Medical Substitution Center Allowed, TAB Zetia Daily, Active [facility] Substitution 2011 Medical Allowed Center Klor-Con 10 oral 10 mEq, 1 tab, PO Active [facility] tablet, extended PO, Daily, 180 2011 Medical release tab, Center Substitution Allowed, ERTAB ferrous 324 mg, 1 tab, PO Active [facility] gluconate 324 mg PO, Daily, 100 2011 Medical oral tablet tab, Center Substitution Allowed, TAB Lasix 40 mg oral 40 mg, 1 tab, PO Active [place] tablet PO, Daily, 30 2011 Medical tab, Center Substitution Allowed, TAB Cymbalta 60 mg 60 mg, 1 cap, PO Active [facility] oral delayed PO, BID, 30 2011 Medical release capsule cap, Center Substitution Allowed, ECCAP Crestor 20 mg 20 mg, 1 tab, PO Active [facility] oral tablet PO, Daily, 30 2011 Medical tab, Center Substitution Allowed, TAB Flexeril 10 mg 10 mg, 1 tab, PO Active [facility] oral tablet PO, TID, PRN, 2011 Medical 30 tab, for Center spasm, Substitution Allowed, TAB Lyrica 150 mg 150 mg, 1 cap, PO Active [facility] oral capsule PO, BID, 90 2011 Medical cap, Center Substitution Allowed, CAP Klonopin 0.5 mg 0.5 mg, 1 tab, PO Active [facility] oral tablet PO, TID, 2011 Medical Substitution Center Allowed, TAB Diovan 160 mg 160 mg, 1 tab, PO Active [facility] oral tablet PO, Daily, 30 2011 Medical tab, Center Substitution Allowed, TAB carvedilol 25 mg 25 mg, 1 tab, PO Active [place] oral tablet PO, BID, 60 2011 Medical tab, Center Substitution Allowed, TAB omeprazole 20 mg 20 mg, 1 tab, PO Active 06/28[facility] oral enteric PO, Daily, 30 2011 Medical coated tablet tab, [place] Substitution Allowed, ECTAB Abilify 10 mg 10 mg, 1 tab, PO Active 06/28[facility] oral tablet PO, Daily, 30 2011 Medical tab, Center Substitution Allowed, TAB buPROPion 150 mg 150 mg, 1 tab, PO Active [facility] oral tablet, PO, Daily, 60 2011 Medical extended release tab, Center Substitution Allowed, ERTAB metFORmin 1000 1,000 mg, 1 PO Active [facility] mg oral tablet tab, PO, BID, 2011 Medical 30 tab, Center Substitution Allowed NovoLog Substitution Active [facility] 2011 [facility] Levemir FlexPen Substitution Active [facility] Allowed 2011 [facility] Allergies, Adverse Reactions, Alerts Substance Category Reaction Severity Reaction Status Date Comments Source type Reported NKDA drug Allergy Active [facility] allergy [facility] Immunizations Immunization Date Given Site Status Last Updated Comments Source influenza virus 07/14/2013 completed [facility] vaccine, [facility] inactivated Center pneumococcal 07/14/2013 completed [facility] 23-valent vaccine [facility] Results Order Name Results Value Reference Date Interpretation Comments Source Range CHEMISTRY U Preg Negative Negative 08/13 Normal Medical (08/13/2013 13:30:00) [place] URINALYSIS UA RBC 0-2 /HPF 0 - 2 08/13 Normal [facility] [facility] URINALYSIS UA WBC 3-5 /HPF None Seen 08/13 Normal [facility] URINALYSIS UA Sq Epi Few /LPF Few 08/13 Normal [facility] URINALYSIS Micro? Performed 08/13 Normal [facility] (08/13/2013 13:30:00) Center URINALYSIS UA Hyal Cast 0-2 0 - 2 08/13 Normal [facility] (08/13/2013 13:30:00) [facility] URINALYSIS UA Glucose 250 mg/dL Negative 08/13 ABN [facility] URINALYSIS UA Blood Negative Negative 08/13 Normal [facility] (08/13/2013 13:30:00) [facility] URINALYSIS UA Ketones >=80 mg/dL Negative 08/13 ABN [facility] URINALYSIS UA 0.2 EU/dL 0.1 - 1.0 08/13 Normal [facility] Urobilinogen /2012 [facility] URINALYSIS UA Nitrite Negative Negative 08/13 Normal [facility] (08/13/2013 13:30:00) [facility] URINALYSIS UA Bili Small 1 Negative 08/13 [facility] 1Result Comment: Interpret positive bilirubin results with caution. Confirmatory testing not possible due to the unavailability of reagent. Correlation with Medical *ABN* serum chemistry results recommended. [facility] (08/13/2013 13:30:00) URINALYSIS UA Leuk Est Negative Negative 08/13 Normal [facility] (08/13/2013 13:30:00) [facility] URINALYSIS UA Protein Negative Negative 08/13 Normal [facility] (08/13/2013 13:30:00) [facility] URINALYSIS UA pH 6.0 5.0 - 8.0 08/13 Normal [facility] URINALYSIS UA Spec Grav 1.020 <=1.030 08/13 Normal [facility] URINALYSIS UA Color Yellow Yellow 08/13 Medical *NA* [facility] (08/13/2013 13:30:00) URINALYSIS UA Turbidity Clear Clear 08/13 Normal Medical (08/13/2013 13:30:00) Center CHEMISTRY BE Mark 1 mMol/L -2-2 - 2 08/13 Normal [facility] CHEMISTRY pO2 Mark 29 mm[Hg] 20 - 49 08/13 Normal [facility] CHEMISTRY O2 Sat Mark 55.9 % 40.0 - 08/13 Normal [facility] 70. [facility] CHEMISTRY Temp Mark 37.0 Abby 08/13 MH [facility] CHEMISTRY HCO3 Mark 26 mMol/L 22 - 26 08/13 Normal [facility] CHEMISTRY pCO2 Mark 41 mm[Hg] 38 - 52 08/13 Normal [facility] CHEMISTRY pH Mark 7.41 7.28 - 08/13 Normal [facility] 7.42 [facility] CHEMISTRY eGFR 60 08/13 2Result Comment: The eGFR is calculated using the CKD-EPI formula. In most young, healthy individuals the eGFR will be >90 mL/ min/1.73m2. The eGFR declines with age. An eGFR of 60-89 may be normal in [facility] mL/min/1.7 some populations, particularly the elderly, for whom the CKD-EPI formula has not been extensively validated. Use of the eGFR is not recommended in the following populations: [address] Individuals with unstable creatinine concentrations, including [...] 25 meq/L 24 - 32 08/13 Normal [facility] CHEMISTRY Chloride Lvl 98 meq/L 95 - 109 08/13 Normal [facility] CHEMISTRY BUN 9 mg/dL 7 - 22 08/13 Normal [facility] CHEMISTRY Calcium Lvl 9.1 mg/dL 8.5 - 10.5 08/13 Normal [facility]2012 [facility] CHEMISTRY Glucose Lvl 301 mg/dL 70 - 99 08/13 [place] 3Interpretive Data: Adult reference range values reflect the clinical guidelines of the [place] [employer]. [facility] CHEMISTRY Potassium Lvl 3.8 meq/L 3.5 - 5.1 08/13 Normal [facility] CHEMISTRY Sodium Lvl 134 meq/L 135 - 145 08/13 LOW [facility]2012 [facility] CHEMISTRY Creatinine 1.1 mg/dL 0.5 - 1.4 08/13 Normal [facility] CHEMISTRY Bili Total 0.6 mg/dL 0.2 - 1.3 08/13 Normal [facility] CHEMISTRY ASPARTATE 17 unit/L 0 - 37 08/13 Normal [facility] [place] TRANSAMINASE [facility] CHEMISTRY ALANINE 22 unit/L 0 - 65 12 Normal [facility] AMINO [facility] CHEMISTRY Albumin Lvl 3.5 g/dL 3.5 - 5.0 08/13 Normal [facility] CHEMISTRY Alk Phos 130 unit/L 39 - 136 08/13 Normal [facility] CHEMISTRY Total Protein 7.8 g/dL 6.4 - 8.4 08/13 Normal [facility] CHEMISTRY B/C Ratio 8 6 - 25 08/13 Normal [facility] CHEMISTRY AGAP 14.8 meq/L 10.0 - 12 Normal [facility] 20.0 [facility] CHEMISTRY Globulin 4.3 g/dL 2.0 - 4.0 08/13 HI [facility] CHEMISTRY A/G Ratio 0.8 0.7 - 1.6 08/13 Normal [facility] HEMATOLOGY Monocytes # 0.8 K/CMM 0.0 - 0.8 08/13 Normal [facility] HEMATOLOGY Eosinophils # 0.0 K/CMM 0.0 - 0.5 08/13 Normal [facility] HEMATOLOGY Basophils # 0.0 K/CMM 0.0 - 0.2 08/13 Normal [facility] HEMATOLOGY Basophils 0.1 % 0.0 - 1.0 08/13 Normal [facility] HEMATOLOGY Lymphocytes # 1.4 K/CMM 1.0 - 5.5 08/13 Normal [facility] HEMATOLOGY Segs-Bands # 10.5 K/CMM 1.5 - 8.1 08/13 HI [facility] HEMATOLOGY Monocytes 6.3 % 2.0 - 12.0 08/13 Normal [facility] HEMATOLOGY Eosinophils 0.2 % 0.0 - 4.0 08/13 Normal [facility] HEMATOLOGY Lymphocytes 11.3 % 20.0 - 12/08 LOW [place] 40.0 /2012 [facility] HEMATOLOGY Segs 82.1 % 45.0 - 1208 [facility] 75.0 [facility] HEMATOLOGY WBC X 10x3 12.7 K/CMM 3.7 - 10.4 12 [facility] HEMATOLOGY Hct 37.0 % 36.0 - 1208 Normal [facility] 48.0 [facility] HEMATOLOGY RBC X 10x6 4.36 M/CMM 4.20 - 12/08 Normal [place] 5.40 /2013 [facility] HEMATOLOGY Hgb 12.6 g/dL 12.0 - 12 Normal [place] 16.0 /2012 [facility] HEMATOLOGY MCV 84.8 fL 81.0 - 08/13 Normal [place] 99.0 /2012 [facility] HEMATOLOGY MCH 28.8 pg 27.0 - 08/13 Normal [place] 31.0 /2012 [facility] HEMATOLOGY MCHC 34.0 g/dL 32.0 - 08/13 Normal [place] 36.0 /2012 [facility] HEMATOLOGY Platelet 238 K/CMM 133 - 450 12 Normal /2012 [facility] HEMATOLOGY MPV 9.5 fL 7.4 - 10.4 08/13 Normal /2012 [facility] [place] HEMATOLOGY RDW 13.1 % 11.5 - 08/13 Normal [facility] 14.5 [facility] Center BEDSIDE Gluc POC Notify 07/26 [facility] GLUCOSE Comment 1 RN/ /2012 [facility]ING [facility] BEDSIDE Glucose POC 274 mg/dL 70 - 99 07/26 [place] 1Interpretive [facility] GLUCOSE Data: Medical TESTING Center Upper Reportable Limit: 200 mg/dL. BEDSIDE Glucose POC 146 mg/dL 70 - 99 07/15 [place] 2Interpretive [facility] GLUCOSE Data: Medical TESTING Center Upper Reportable Limit: 200 mg/dL. BEDSIDE Gluc POC Notify 07/15 [facility] GLUCOSE Comment 1 RN/ /2013 [facility] BEDSIDE Glucose POC 140 mg/dL 70 - 99 07/14 [place] 3Interpretive [facility] GLUCOSE Data: Medical TESTING Center Upper Reportable Limit: 200 mg/dL. BEDSIDE Gluc POC Notify 07/14 [facility] GLUCOSE Comment 1 RN/ /2013 [facility] BEDSIDE Gluc POC Notify 07/14 [facility] GLUCOSE Comment 1 RN/MD /2013 [facility] BEDSIDE Glucose POC 44 mg/dL 70 - 99 07/14 LOW 4Interpretive [facility] GLUCOSE Data: Medical TESTING Center Upper Reportable Limit: 200 mg/dL. IMMUNOLOGY [place]-HIV Negative Negative 07/14 [facility] 1/2 Medical *NA* Center (07/14/2013 00:27:00) IMMUNOLOGY [facility]-Hep C Negative Negative 07/14 [facility] Medical *NA* Center (07/14/2013 00:27:00) CHEMISTRY eGFR 109 07/13 5Result Comment: The eGFR is calculated using the CKD-EPI formula. In most young, healthy individuals the eGFR will be >90 mL/ min/1.73m2. The eGFR declines with age. An eGFR of 60-89 may be normal in [facility] mL/min/1.7 some populations, particularly the elderly, for whom the CKD-EPI formula has not been extensively validated. Use of the eGFR is not recommended in the following populations: [address] Individuals with unstable creatinine concentrations, including [...] 135 meq/L 135 - 145 07/13 Normal [facility] CHEMISTRY Chloride Lvl 95 meq/L 95 - 109 07/13 Normal [facility] CHEMISTRY AGAP 16.5 meq/L 10.0 - 07/13 Normal [facility] 20.0 [facility] CHEMISTRY Glucose Lvl 322 mg/dL 70 - 99 07/13 [place] 8Interpretive Data: Adult reference range values reflect the clinical guidelines of the [place] [employer]. [facility] CHEMISTRY Creatinine 0.6 mg/dL 0.5 - 1.4 07/13 Normal [facility] CHEMISTRY BUN 6 mg/dL 7 - 22 07/13 LOW [facility]2012 [facility] CHEMISTRY Calcium Lvl 8.6 mg/dL 8.5 - 10.5 07/13 Normal [facility] CHEMISTRY CO2 27 meq/L 24 - 32 07/13 Normal [facility]2012 [facility] CHEMISTRY Potassium Lvl 3.5 meq/L 3.5 - 5.1 07/13 Normal [facility]2012 [facility] INFECTIOUS C difficile Negative 1 Negative 07/13 Normal 1Interpretive Data: [employer] Clostridium difficile assay utilizes loop-mediated isothermal DNA amplification (LAMP) technology to detect a 204 bp region of the tcdA gene within the PaLoc gene [facility] segment present in all known toxigenic C. difficile strains. [facility] (07/13/2013 00:00:59) [facility] The assay utilizes FDA cleared IVD reagents. Performance characteristics have been verified by the [facility] within the [facility]. The Molecular Diagnostic Laboratory is authorized under the Clinical Laboratory Improvement Amendment of 1988 (CLIA-88) to perform high complexity testing. CHEMISTRY Lactic Acid 1.9 mMol/L 0.5 - 2.2 07/12 Normal [facility] Lvl [facility] CHEMISTRY eGFR 88 07/12 6Result Comment: The eGFR is calculated using the CKD-EPI formula. In most young, healthy individuals the eGFR will be >90 mL/ min/1.73m2. The eGFR declines with age. An eGFR of 60-89 may be normal in [facility] mL/min/1.7 some populations, particularly the elderly, for whom the CKD-EPI formula has not been extensively validated. Use of the eGFR is not recommended in the following populations: [address] Individuals with unstable creatinine concentrations, including [...] CHEMISTRY Troponin-I null 0.00 - 07/12 Normal [facility] 0.40 [facility] HEMATOLOGY Basophils # 0.0 K/CMM 0.0 - 0.2 07/[address] HEMATOLOGY Eosinophils # 0.3 K/CMM 0.0 - 0.5 07/[address] HEMATOLOGY Monocytes # 1.0 K/CMM 0.0 - 0.8 07/12 HI [facility]2012 [facility] HEMATOLOGY Lymphocytes # 3.0 K/CMM 1.0 - 5.5 07/[address] HEMATOLOGY Segs-Bands # 6.4 K/CMM 1.5 - 8.1 07/[address] HEMATOLOGY Basophils 0.4 % 0.0 - 1.0 07/[address] HEMATOLOGY Eosinophils 2.8 % 0.0 - 4.0 07/[address] HEMATOLOGY Plt Morph Normal 07/12 [facility] (07/12/2013 16:29:10) Center HEMATOLOGY RBC Morph Normal 07/12 [facility] Medical (07/12/2013 16:29:10) Center HEMATOLOGY Monocytes 9.4 % 2.0 - 12.0 11 Normal [facility] HEMATOLOGY Lymphocytes 27.9 % 20.0 - 11 Normal [facility] 40.0 /2012 [facility] HEMATOLOGY Segs 59.5 % 45.0 - 11 Normal [facility] 75.0 /2012 [facility] HEMATOLOGY MCV 85.3 fL 81.0 - 07/12 Normal [facility] 99.0 /2012 [facility] HEMATOLOGY Hct 41.2 % 36.0 - 11 Normal [facility] 48.0 /2012 [facility] HEMATOLOGY Hgb 13.6 g/dL 12.0 - 07/12 Normal [facility] 16.0 /2012 [facility] HEMATOLOGY RBC X 10x6 4.84 M/CMM 4.20 - 07/12 Normal [facility] 5.40 /2012 [facility] HEMATOLOGY MPV 9.4 fL 7.4 - 10.4 07/12 Normal [facility] HEMATOLOGY Platelet 225 K/CMM 133 - 450 07/12 Normal [facility] HEMATOLOGY MCH 28.1 pg 27.0 - 07/12 Normal [facility] 31.0 /2012 [facility] HEMATOLOGY MCHC 33.0 g/dL 32.0 - 11 Normal [facility] 36.0 /2012 [facility] HEMATOLOGY RDW 12.7 % 11.5 - 07/12 Normal [facility] 14.5 /2012 [facility] HEMATOLOGY WBC X 10x3 10.7 K/CMM 3.7 - 10.4 07/12 HI [facility] CHEMISTRY AGAP 12.4 meq/L 10.0 - 07/12 Normal [facility] 20.0 [facility] CHEMISTRY Calcium Lvl 8.8 mg/dL 8.5 - 10.5 07/12 Normal [facility] CHEMISTRY Chloride Lvl 102 meq/L 95 - 109 07/12 Normal [facility] CHEMISTRY Potassium Lvl 3.4 meq/L 3.5 - 5.1 07/12 LOW [facility] CHEMISTRY CO2 30 meq/L 24 - 32 07/12 Normal [facility] CHEMISTRY Sodium Lvl 141 meq/L 135 - 145 07/12 Normal [facility] CHEMISTRY Creatinine 0.8 mg/dL 0.5 - 1.4 07/12 Normal [facility] CHEMISTRY BUN 6 mg/dL 7 - 22 07/12 LOW [facility] CHEMISTRY Glucose Lvl 163 mg/dL 70 - 99 07/12 HI 9Interpretive Data: Adult reference range values reflect the clinical guidelines of the [place] [employer]. [facility] IMMUNOLOGY [facility]-HIV 1/2 Negative Negative 07/12 [facility] *NA* Center (07/12/2013 16:02:06) CHEMISTRY Calcium Lvl 8.4 mg/dL 8.5 - 10.5 07/12 LOW [facility] CHEMISTRY AGAP 10.4 meq/L 10.0 - 07/12 Normal [facility] 20.0 [facility] CHEMISTRY eGFR 76 07/12 7Result Comment: The eGFR is calculated using the CKD-EPI formula. In most young, healthy individuals the eGFR will be >90 mL/ min/1.73m2. The eGFR declines with age. An eGFR of 60-89 may be normal in [facility] mL/min/1.7 some populations, particularly the elderly, for whom the CKD-EPI formula has not been extensively validated. Use of the eGFR is not recommended in the following populations: [address] Individuals with unstable creatinine concentrations, including [...] 140 meq/L 135 - 145 07/12 Normal [facility] CHEMISTRY Chloride Lvl 103 meq/L 95 - 109 07/12 Normal [facility] CHEMISTRY Potassium Lvl 3.4 meq/L 3.5 - 5.1 07/12 LOW [facility] CHEMISTRY BUN 9 mg/dL 7 - 22 07/12 Normal [facility] CHEMISTRY Creatinine 0.9 mg/dL 0.5 - 1.4 07/12 Normal [facility] CHEMISTRY Glucose Lvl 296 mg/dL 70 - 99 07/12 HI 10Interpretive Data: Adult reference range values reflect the clinical guidelines of the [place] [employer]. [facility] CHEMISTRY CO2 30 meq/L 24 - 32 07/12 Normal [facility]2012 [facility] CHEMISTRY Troponin-I null 0.00 - 07/12 Normal [facility] 0.40 [facility] CHEMISTRY Lipase Lvl 76 unit/L 73 - 393 07/12 Normal [facility]2012 [facility] CHEMISTRY B/C Ratio 11 6 - 25 07/12 Normal [facility]2012 [facility] CHEMISTRY ASPARTATE 25 unit/L 0 - 37 07/12 Normal [facility] TRANSAMINASE [facility] CHEMISTRY Bili Total 0.4 mg/dL 0.2 - 1.3 07/12 Normal [facility]2012 [facility] CHEMISTRY Alk Phos 119 unit/L 39 - 136 07/12 Normal [facility] CHEMISTRY Albumin Lvl 3.9 g/dL 3.5 - 5.0 07/12 Normal [facility]2012 [facility] CHEMISTRY ALANINE 29 unit/L 0 - 65 07/12 Normal [facility] AMINO [facility] CHEMISTRY Total Protein 8.1 g/dL 6.4 - 8.4 07/12 Normal [facility]2012 [facility] CHEMISTRY Globulin 4.2 g/dL 2.0 - 4.0 07/12 HI [facility]2012 [facility] CHEMISTRY A/G Ratio 0.9 0.7 - 1.6 07/12 Normal [facility]2012 [facility] HEMATOLOGY Monocytes # 0.6 K/CMM 0.0 - 0.8 07/12 Normal [facility]2012 [facility] HEMATOLOGY Segs-Bands # 9.5 K/CMM 1.5 - 8.1 07/12 [facility] HEMATOLOGY Eosinophils # 0.2 K/CMM 0.0 - 0.5 07/12 Normal [facility] HEMATOLOGY Lymphocytes # 2.1 K/CMM 1.0 - 5.5 07/12 Normal [facility]2012 [facility] HEMATOLOGY Basophils 0.2 % 0.0 - 1.0 07/12 Normal [facility] HEMATOLOGY Neut Vac Slight None Seen 07/12 ABN Medical *ABN* [facility] (07/12/2013 03:30:00) HEMATOLOGY Hypochrom Slight None Seen 07/12 Normal [facility] (07/12/2013 03:30:00) Center HEMATOLOGY Basophils # 0.0 K/CMM 0.0 - 0.2 07/12 Normal [facility] HEMATOLOGY RBC Morph Normal 07/12 Normal [facility] (07/12/2013 03:30:00) Center HEMATOLOGY Eosinophils 1.6 % 0.0 - 4.0 07/12 Normal [facility] HEMATOLOGY Monocytes 4.6 % 2.0 - 12.0 07/12 Normal [facility] HEMATOLOGY Segs 76.6 % 45.0 - 07/12 HI [facility] 75.0 [facility] HEMATOLOGY Lymphocytes 17.0 % 20.0 - 07/12 LOW [place] 40.0 [facility] HEMATOLOGY Plt Morph Normal 07/12 Normal [facility] (07/12/2013 03:30:00) [facility] HEMATOLOGY MCHC 32.4 g/dL 32.0 - 07/12 Normal [facility] 36.0 [facility] HEMATOLOGY MCH 27.4 pg 27.0 - 07/12 Normal [facility] 31.0 [facility] HEMATOLOGY RDW 12.7 % 11.5 - 07/12 Normal [facility] 14.5 [facility] HEMATOLOGY Platelet 235 K/CMM 133 - 450 07/12 Normal [facility] HEMATOLOGY MPV 9.4 fL 7.4 - 10.4 07/12 Normal [facility] HEMATOLOGY Hgb 12.9 g/dL 12.0 - 07/12 Normal [facility] 16.0 [facility] HEMATOLOGY MCV 84.3 fL 81.0 - 07/12 Normal [facility] 99.0 [facility] HEMATOLOGY Hct 39.6 % 36.0 - 07/12 Normal [facility] 48.0 [facility] HEMATOLOGY WBC X 10x3 12.4 K/CMM 3.7 - 10.4 07/12 HI [facility] HEMATOLOGY RBC X 10x6 4.70 M/CMM 4.20 - 07/12 Normal [facility] 5.40 [facility] CHEMISTRY U Preg Negative Negative 07/12 Normal [facility] (07/12/2013 03:00:00) Center URINALYSIS UA Leuk Est Negative Negative 07/12 Normal [facility] (07/12/2013 03:00:00) Center URINALYSIS UA 0.2 EU/dL 0.1 - 1.0 07/12 Normal [facility] Urobilinogen [facility] URINALYSIS UA Nitrite Negative Negative 07/12 Normal [facility] (07/12/2013 03:00:00) Center URINALYSIS UA Bili Negative Negative 07/12 [facility] *NA* [facility] (07/12/2013 03:00:00) URINALYSIS UA pH 6.0 5.0 - 8.0 07/12 Normal [facility] URINALYSIS UA Protein Negative Negative 07/12 Normal [facility] mg/dL [facility] URINALYSIS UA Glucose >=1000 Negative 07/12 [facility] mg/dL [facility] URINALYSIS UA Ketones 15 mg/dL Negative 07/12 [facility] URINALYSIS UA Spec Grav 1.020 <=1.030 07/12 Normal [facility] URINALYSIS UA Blood Negative Negative 07/12 Normal [facility] (07/12/2013 03:00:00) [facility] URINALYSIS UA Color Yellow Yellow 07/12 [facility] *NA* [facility] (07/12/2013 03:00:00) URINALYSIS UA Turbidity Clear Clear 07/12 Normal [facility] (07/12/2013 03:00:00) [facility] URINALYSIS UA RBC 0-2 /HPF 0 - 2 07/12 Normal [facility] URINALYSIS UA WBC 3-5 /HPF None Seen 07/12 Normal [facility] URINALYSIS UA Sq Epi Many /LPF Few 07/12 [facility] URINALYSIS UA Bacteria Few /HPF None Seen 07/12 Normal [facility]2012 [facility] URINALYSIS UA [place] Yeast Moderate None Seen 07/12 [facility] URINALYSIS Micro? Performed 07/12 Normal [facility] (07/12/2013 03:00:00) [facility] Abdomen/Pel Abdomen/Pelvi EXAM: CT ABDOMEN WITH CONTRAST 07/12 - [facility] vis w s w contrast - Medical contrast CT CT EXAM: CT PELVIS WITH CONTRAST This report was dictated by a [facility] [employer] Operator/Fellow. I have personally reviewed the images as Center well as the Resident's interpretation and agree with the findings. Read by: Kindra Webb Resident: Kindra Webb Dictated Date/time: 07/12/13 08:11 DATE: 07/12/2013 at 0720 hours Electronically Signed by: Katelyn Tovar MD 11/06/13 15:51 FINAL REPORT COMPARISON: CT abdomen and [...] mg/dL 70 - 99 04/03 [place] 1Interpretive [facility] GLUCOSE [facility] Data: Medical TESTING Center Upper Reportable Limit: 200 mg/dL. BEDSIDE Comment2 Sliding 04/03 [facility] [place] GLUCOSE Scale /2012 [facility] TESTING Center BEDSIDE Comment1 Notify 04/03 [facility] [place] GLUCOSE RN/MD /2012 [facility] TESTING Center BEDSIDE Comment1 Notify 04/03 [facility] GLUCOSE RN/MD /2012 [facility] TESTING [place] BEDSIDE Gluc POC 198 mg/dL 04/03 [place] 2Interpretive [facility] GLUCOSE [facility] Data: [facility] Upper Reportable Limit: 200 mg/dL. BEDSIDE Comment2 Sliding 04/03 [facility] GLUCOSE Scale [facility] TESTING [facility] Abdomen 2 Abdomen 2 EXAM: XR ABDOMEN 1 VIEW 04/03 - [facility] views views - [facility] DATE: March 25,. Read by: Carissa Cho Dictated Date/time: 04/03/13 [...] Cho MD. BEDSIDE Comment2 Sliding 04/03 [facility] [place] GLUCOSE Scale [facility] TESTING Center BEDSIDE Comment1 Notify 04/03 [facility] [place] GLUCOSE RN/MD /2012 [facility] TESTING [place] BEDSIDE Gluc POC 182 mg/dL 04/03 [place] 3Interpretive [facility] GLUCOSE [facility] Data: [facility] Upper Reportable Limit: 200 mg/dL. CHEMISTRY Troponin-T null 0.000 - 04/03 Normal [place] 0.100 [facility] CHEMISTRY Troponin-I null 0.00 - 04/03 Normal [place] 0.40 /2012 [facility] Center CHEMISTRY Total CK 41 unit/L 12 - 191 04/03 Normal [facility] CHEMISTRY Creatinine 0.6 mg/dL 0.5 - 1.4 04/03 Normal [facility] Lvl [facility] CHEMISTRY Sodium Lvl 137 meq/L 135 - 145 04/03 Normal [facility] CHEMISTRY CO2 25 meq/L 24 - 32 04/03 Normal [facility] CHEMISTRY Calcium Lvl 8.2 mg/dL 8.5 - 10.5 04/03 LOW [facility] CHEMISTRY AGAP 17.9 meq/L 10.0 - 04/03 Normal [facility] 20.0 [facility] CHEMISTRY Potassium Lvl 3.9 meq/L 3.5 - 5.1 04/03 Normal [facility] CHEMISTRY Chloride Lvl 98 meq/L 95 - 109 04/03 Normal [facility] CHEMISTRY Glucose Lvl 266 mg/dL 70 - 99 04/03 [place] 6Interpretive Data: Adult reference range values reflect the clinical guidelines of the [place] [employer]. [facility] CHEMISTRY BUN 3 mg/dL 7 - 04/03 LOW [facility] CHEMISTRY eGFR 109 04/03 NA 4Result Comment: The eGFR is calculated using the CKD-EPI formula. In most young, healthy individuals the eGFR will be > 90 mL/min/1.73m2. The eGFR declines with age. An eGFR of 60-89 may be normal in [facility] mL/min/1. some populations, particularly the elderly, for whom the CKD-EPI formula has not been extensively validated. Use of the eGFR is not recommended in the following populations: [place] [address] [facility] Individuals with unstable creatinine concentrations, including [...] Hgb 10.5 g/dL 12.0 - 04/03 LOW [facility] 16. [facility] HEMATOLOGY RBC 4.22 M/CMM 4.20 - 04/03 Normal [facility] 5.40 [facility] HEMATOLOGY WBC 10.3 K/CMM 3.7 - 10.4 04/03 Normal [facility] HEMATOLOGY Hct 33.5 % 36.0 - 04/03 LOW [place] 48.0 /2012 [facility] HEMATOLOGY MPV 8.8 fL 7.4 - 10.4 04/03 Normal [facility] HEMATOLOGY Platelet 276 K/CMM 133 - 450 04/03 Normal [facility] HEMATOLOGY RDW 18.7 % 11.5 - 04/03 [facility] [place] 14.5 /2012 [facility] HEMATOLOGY MCHC 31.2 g/dL 32.0 - 04/03 LOW [place] 36.0 /2012 [facility] HEMATOLOGY MCH 24.8 pg 27.0 - 04/03 LOW [place] 31.0 [facility] HEMATOLOGY MCV 79.5 fL 81.0 - 04/03 [facility] 99.0 /2012 [facility] HEMATOLOGY Segs 58.6 % 45.0 - 04/03 [facility] 75.0 /2012 [facility] HEMATOLOGY Lymphocytes 29.9 % 20.0 - 04/03 Normal [facility] 40.0 [facility] HEMATOLOGY Basophils 1.3 % 0.0 - 1.0 04/03 HI [facility] HEMATOLOGY Lymphocytes # 3.1 K/CMM 1.0 - 5.5 04/03 Normal [facility] HEMATOLOGY Segs-Bands # 6.0 K/CMM 1.5 - 8.1 04/03 Normal [facility] HEMATOLOGY Eosinophils 2.8 % 0.0 - 4.0 04/03 Normal [facility] HEMATOLOGY Eosinophils # 0.3 K/CMM 0.0 - 0.5 04/03 Normal [facility] HEMATOLOGY Monocytes # 0.8 K/CMM 0.0 - 0.8 04/03 Normal [facility] HEMATOLOGY Basophils # 0.1 K/CMM 0.0 - 0.2 04/03 Normal [facility] HEMATOLOGY Monocytes 7.4 % 2.0 - 12.0 04/03 Normal [facility] CHEMISTRY Troponin-I null 0.00 - 04/03 Normal [facility] 0.40 [facility] CHEMISTRY Total CK 51 unit/L 12 - 191 04/03 Normal [facility] CHEMISTRY Troponin-T null 0.000 - 04/03 Normal [facility] 0.100 [facility] CHEMISTRY Bili Direct 0.1 mg/dL 0.0 - 0.3 04/03 Normal [facility] CHEMISTRY Bili Total 0.4 mg/dL 0.2 - 1.3 04/03 Normal [facility] CHEMISTRY Bili Indirect 0.3 mg/dL 0.0 - 1.0 04/03 Normal [facility] CHEMISTRY ALT 22 unit/L 0 - 65 04/03 Normal [facility] CHEMISTRY AST 31 unit/L 0 - 37 04/03 Normal [facility] CHEMISTRY Lipase Lvl 54 unit/L 73 - 393 04/03 LOW [facility] CHEMISTRY Troponin-I null 0.00 - 04/02 Normal [facility] 0.40 [facility] CHEMISTRY Total CK 24 unit/L 12 - 191 04/02 Normal [facility] CHEMISTRY AGAP 17.5 meq/L 10.0 - 04/02 Normal [facility] 20.0 [facility] CHEMISTRY eGFR 88 04/02 NA 5Result Comment: The eGFR is calculated using the CKD-EPI formula. In most young, healthy individuals the eGFR will be > 90 mL/min/1.73m2. The eGFR declines with age. An eGFR of 60-89 may be normal in [facility] mL/min/1. some populations, particularly the elderly, for whom the CKD-EPI formula has not been extensively validated. Use of the eGFR is not recommended in the following populations: [address] Individuals with unstable creatinine concentrations, including [...] 0.8 mg/dL 0.5 - 1.4 04/02 Normal [facility] Lvl [facility] CHEMISTRY Potassium Lvl 3.5 meq/L 3.5 - 5.1 04/02 Normal [facility] CHEMISTRY Chloride Lvl 97 meq/L 95 - 109 04/02 Normal [facility] CHEMISTRY Glucose Lvl 163 mg/dL 70 - 99 04/02 HI 7Interpretive Data: Adult reference range values reflect the clinical guidelines of the [place] [employer]. [facility] CHEMISTRY BUN 2 mg/dL 7 - 04/02 LOW [facility] CHEMISTRY Sodium Lvl 136 meq/L 135 - 145 04/02 Normal [facility] CHEMISTRY Calcium Lvl 8.6 mg/dL 8.5 - 10.5 04/02 Normal [facility] CHEMISTRY CO2 25 meq/L 24 - 32 04/02 Normal [facility] HEMATOLOGY Platelet 378 K/CMM 133 - 450 04/02 Normal [facility] HEMATOLOGY MCHC 33.4 g/dL 32.0 - 04/02 Normal [facility] 36.0 [facility] HEMATOLOGY RDW 17.3 % 11.5 - 04/02 HI [facility] 14.5 [facility] HEMATOLOGY MCV 76.0 fL 81.0 - 04/02 [facility] 99.0 [facility] HEMATOLOGY MCH 25.4 pg 27.0 - 04/02 [facility] 31.0 [facility] HEMATOLOGY Hct 34.2 % 36.0 - 04/02 [facility] 48.0 [facility] HEMATOLOGY RBC 4.50 M/CMM 4.20 - 04/02 Normal [facility] 5.40 /2012 [facility] HEMATOLOGY Hgb 11.4 g/dL 12.0 - 04/02 LOW [facility] 16.0 /2012 [facility] HEMATOLOGY WBC 9.0 K/CMM 3.7 - 10.4 04/02 Normal [facility] HEMATOLOGY MPV 8.4 fL 7.4 - 10.4 04/02 Normal [facility] HEMATOLOGY Microcyte 2+ None Seen 04/02 [facility] (04/02/2013 17:09:00) HEMATOLOGY Basophils # 0.1 K/CMM 0.0 - 0.2 04/02 Normal [facility] HEMATOLOGY Eosinophils # 0.1 K/CMM 0.0 - 0.5 04/02 Normal [facility] HEMATOLOGY Monocytes # 0.7 K/CMM 0.0 - 0.8 04/02 Normal [facility] HEMATOLOGY Lymphocytes # 1.4 K/CMM 1.0 - 5.5 04/02 Normal [facility] HEMATOLOGY Segs-Bands # 6.7 K/CMM 1.5 - 8.1 04/02 Normal [facility] HEMATOLOGY Basophils 1.3 % 0.0 - 1.0 04/02 HI [facility] HEMATOLOGY Lymphocytes 15.2 % 20.0 - 04/02 LOW [facility] 40.0 [facility] HEMATOLOGY Segs 74.3 % 45.0 - 04/02 Normal [facility] 75.0 [facility] HEMATOLOGY Eosinophils 1.6 % 0.0 - 4.0 04/02 Normal [facility] HEMATOLOGY Monocytes 7.6 % 2.0 - 12.0 04/02 Normal [facility] Chest 1view Chest 1view EXAM: XR CHEST 1 VIEW 04/02 - - [facility] DATE: 2013-04-02 1638 hours Read by: Francheska [...] POC 229 mg/dL 70 - 99 03/09 [place] 1Interpretive [facility] GLUCOSE Lifscn Data: [facility] Upper Reportable Limit: 200 mg/dL. BEDSIDE Comment1 Notify 03/09 NA [facility] GLUCOSE RN/ /2012 [facility] CHEMISTRY eGFR 88 03/09 NA 4Result Comment: The eGFR is calculated using the CKD-EPI formula. In most young, healthy individuals the eGFR will be > 90 mL/min/1.73m2. The eGFR declines with age. An eGFR of 60-89 may be normal in [facility] mL/min/1.7 /2012 some populations, particularly the elderly, for whom the CKD-EPI formula has not been extensively validated. Use of the eGFR is not recommended in the following populations: [address] [facility] Individuals with unstable creatinine concentrations, including [...] 7 mg/dL 7 - 22 03/09 Normal [facility] CHEMISTRY Creatinine 0.8 mg/dL 0.5 - 1.4 03/09 Normal [facility] CHEMISTRY Sodium Lvl 138 meq/L 135 - 145 / Normal [facility] CHEMISTRY Potassium Lvl 4.7 meq/L 3.5 - 5.1 03/09 Normal [facility] CHEMISTRY Chloride Lvl 104 meq/L 95 - 109 / Normal [facility] CHEMISTRY CO2 23 meq/L 24 - 32 03/09 LOW [facility] CHEMISTRY Bili Total 0.2 mg/dL 0.2 - 1.3 03/09 Normal [facility] CHEMISTRY AST 22 unit/L 0 - 37 03/09 Normal [facility] CHEMISTRY Total Protein 4.8 g/dL 6.4 - 8.4 03/09 LOW [facility] CHEMISTRY Calcium Lvl 7.4 mg/dL 8.5 - 10.5 03/09 LOW [facility] CHEMISTRY Albumin Lvl 1.9 g/dL 3.5 - 5.0 03/09 LOW [facility] CHEMISTRY Glucose Lvl 192 mg/dL 70 - 99 03/09 [place] 7Interpretive Data: Adult reference range values reflect the clinical guidelines of the [place] [employer]. [facility] CHEMISTRY Alk Phos 162 unit/L 39 - 136 03/09 HI [facility] CHEMISTRY ALT 18 unit/L 0 - 65 03/09 Normal [facility] CHEMISTRY A/G Ratio 0.7 0.7 - 1.6 03/09 Normal [facility] CHEMISTRY Globulin 2.9 g/dL 2.0 - 4.0 03/09 Normal [facility] CHEMISTRY AGAP 15.7 meq/L 10.0 - 07 Normal [facility] 20.0 [facility] CHEMISTRY B/C Ratio 9 6 - 25 03/09 Normal [facility] HEMATOLOGY Eosinophils 1.9 % 0.0 - 4.0 / Normal [facility] HEMATOLOGY Basophils 1.0 % 0.0 - 1.0 03/09 Normal [facility] HEMATOLOGY Anisocyte 1+ None Seen 03/09 [facility] Center (03/09/2013 01:09:00) HEMATOLOGY Lymphocytes # 2.0 K/CMM 1.0 - 5.5 07 Normal [facility] HEMATOLOGY Monocytes # 0.6 K/CMM 0.0 - 0.8 07 Normal [facility] HEMATOLOGY Eosinophils # 0.1 K/CMM 0.0 - 0.5 07 Normal [facility] HEMATOLOGY Basophils # 0.1 K/CMM 0.0 - 0.2 07 Normal [facility] HEMATOLOGY Segs-Bands # 4.6 K/CMM 1.5 - 8.1 03/09 Normal [facility] HEMATOLOGY Segs 62.8 % 45.0 - 07/ Normal [facility] 75.0 /2012 [facility] HEMATOLOGY Lymphocytes 26.4 % 20.0 - 07/ Normal [facility] 40.0 /2012 [facility] HEMATOLOGY Monocytes 7.9 % 2.0 - 12.0 07 Normal [facility] HEMATOLOGY RDW 20.7 % 11.5 - 07/04 HI [facility] 14.5 /2012 [facility] HEMATOLOGY Platelet 304 K/CMM 133 - 450 07 Normal [facility] HEMATOLOGY MPV 8.0 fL 7.4 - 10.4 03/09 Normal [facility] HEMATOLOGY Hct 24.9 % 36.0 - 07/ LOW [facility] 48.0 /2012 [facility] HEMATOLOGY MCV 79.3 fL 81.0 - 07 [facility] 99.0 /2012 [facility] HEMATOLOGY MCH 24.7 pg 27.0 - 07/ [facility] 31.0 /2012 [facility] HEMATOLOGY MCHC 31.2 g/dL 32.0 - 07/04 LOW [facility] 36.0 /2012 [facility] HEMATOLOGY RBC 3.14 M/CMM 4.20 - 07/04 [facility] 5.40 /2012 [facility] HEMATOLOGY Hgb 7.8 g/dL 12.0 - 07/04 LOW [facility] 16.0 /2012 [facility] HEMATOLOGY WBC 7.4 K/CMM 3.7 - 10.4 07/ Normal [facility] BEDSIDE Gluc POC 131 mg/dL 70 - 99 07 [place] 2Interpretive [facility] GLUCOSE Lifscn /2013 Data: [facility] Upper Reportable Limit: 200 mg/dL. BEDSIDE Comment1 Notify 03/09 NA [facility] GLUCOSE RN/ /2012 [facility] BEDSIDE Comment1 Notify 03/09 NA [facility] GLUCOSE RN/ /2012 [facility] BEDSIDE Gluc POC 155 mg/dL 70 - 99 03/09 [place] 3Interpretive [facility] GLUCOSE oh Data: [facility] Upper Reportable Limit: 200 mg/dL. CHEMISTRY Magnesium Lvl 1.5 mg/dL 1.8 - 2.4 03/08 LOW [facility] CHEMISTRY A/G Ratio 0.7 0.7 - 1.6 03/08 Normal [facility] CHEMISTRY B/C Ratio 8 6 - 25 03/08 Normal [facility] CHEMISTRY Globulin 2.8 g/dL 2.0 - 4.0 03/08 Normal [facility] CHEMISTRY AGAP 15.8 meq/L 10.0 - 03/08 Normal [facility] 20.0 [facility] CHEMISTRY Potassium Lvl 3.8 meq/L 3.5 - 5.1 03/08 Normal [facility] CHEMISTRY Chloride Lvl 100 meq/L 95 - 109 03/08 Normal [facility] CHEMISTRY CO2 23 meq/L 24 - 32 03/08 LOW [facility]2012 [facility] CHEMISTRY Total Protein 4.8 g/dL 6.4 - 8.4 03/08 LOW [facility] CHEMISTRY AST 10 unit/L 0 - 37 03/08 Normal [facility]2012 [facility] CHEMISTRY Calcium Lvl 7.6 mg/dL 8.5 - 10.5 03/08 LOW [facility] CHEMISTRY Bili Total 0.3 mg/dL 0.2 - 1.3 03/08 Normal [facility] CHEMISTRY eGFR 88 03/08 NA 5Result Comment: The eGFR is calculated using the CKD-EPI formula. In most young, healthy individuals the eGFR will be > 90 mL/min/1.73m2. The eGFR declines with age. An eGFR of 60-89 may be normal in [facility] mL/min/1. some populations, particularly the elderly, for whom the CKD-EPI formula has not been extensively validated. Use of the eGFR is not recommended in the following populations: [place] [address] [facility] Individuals with unstable creatinine concentrations, including [...] Lvl 198 mg/dL 70 - 99 03/08 [place] 8Interpretive Data: Adult reference range values reflect the clinical guidelines of the [place] [employer]. [facility] CHEMISTRY BUN 6 mg/dL 7 - 22 03/08 LOW [facility] CHEMISTRY Creatinine 0.8 mg/dL 0.5 - 1.4 03/08 Normal [facility] CHEMISTRY Sodium Lvl 135 meq/L 135 - 145 03/08 Normal [facility]2012 [facility] CHEMISTRY Alk Phos 173 unit/L 39 - 136 03/08 HI [facility] CHEMISTRY ALT 16 unit/L 0 - 65 03/08 Normal [facility]2012 [facility] CHEMISTRY Albumin Lvl 2.0 g/dL 3.5 - 5.0 03/08 LOW [facility]2012 [facility] CHEMISTRY Lipase Lvl 54 unit/L 73 - 393 03/08 LOW [facility]2012 [facility] CHEMISTRY Amylase Lvl 30 unit/L 25 - 115 03/08 Normal [facility]2012 [facility] HEMATOLOGY Basophils # 0.1 K/CMM 0.0 - 0.2 03/08 Normal [facility] HEMATOLOGY Anisocyte 1+ None Seen 03/08 [facility] *ABN* Center (03/08/2013 03:01:00) HEMATOLOGY Microcyte 1+ None Seen 03/08 [facility] [place] (03/08/2013 03:01:00) HEMATOLOGY Eosinophils # 0.2 K/CMM 0.0 - 0.5 03/08 Normal [facility] HEMATOLOGY Monocytes # 0.8 K/CMM 0.0 - 0.8 03/08 Normal [facility] HEMATOLOGY Lymphocytes 34.2 % 20.0 - 07/ Normal [facility] 40.0 [facility] HEMATOLOGY Segs 53.3 % 45.0 - 07/03 Normal [facility] 75.0 [facility] HEMATOLOGY Lymphocytes # 3.0 K/CMM 1.0 - 5.5 03/08 Normal [facility] HEMATOLOGY Segs-Bands # 4.7 K/CMM 1.5 - 8.1 07/ Normal [facility] HEMATOLOGY Basophils 0.9 % 0.0 - 1.0 07/ Normal [facility] HEMATOLOGY Eosinophils 2.6 % 0.0 - 4.0 07/ Normal [facility] HEMATOLOGY Monocytes 9.0 % 2.0 - 12.0 07/ Normal [facility] HEMATOLOGY Hgb 7.9 g/dL 12.0 - 07/ LOW [place] 16.0 /2012 [facility] HEMATOLOGY RBC 3.12 M/CMM 4.20 - 07/ [facility] 5.40 /2012 [facility] HEMATOLOGY MPV 8.0 fL 7.4 - 10.4 07 Normal [facility] HEMATOLOGY Platelet 294 K/CMM 133 - 450 07 Normal [facility] HEMATOLOGY MCH 25.3 pg 27.0 - 07 [facility] 31.0 [facility] HEMATOLOGY MCV 79.7 fL 81.0 - 07 [facility] 99.0 /2012 [facility] HEMATOLOGY Hct 24.9 % 36.0 - 07/ [facility] 48.0 /2012 [facility] HEMATOLOGY WBC 8.8 K/CMM 3.7 - 10.4 07/ Normal [facility] HEMATOLOGY RDW 21.4 % 11.5 - 07/03 [facility] 14.5 /2012 [facility] [place] HEMATOLOGY MCHC 31.8 g/dL 32.0 - 07/ [facility] 36.0 /2012 [facility] CHEMISTRY Troponin-I null 0.00 - 07 Normal [facility] 0.40 [facility] CHEMISTRY Total CK 26 unit/L 12 - 191 07 Normal [facility] CHEMISTRY A/G Ratio 0.6 0.7 - 1.6 07 LOW [facility] CHEMISTRY Bili Total 0.6 mg/dL 0.2 - 1.3 07 Normal [facility] CHEMISTRY Bili Direct 0.3 mg/dL 0.0 - 0.3 07 Normal [facility] CHEMISTRY Alk Phos 190 unit/L 39 - 136 07 [facility] CHEMISTRY Total Protein 5.2 g/dL 6.4 - 8.4 03/07 LOW [facility] CHEMISTRY Globulin 3.2 g/dL 2.0 - 4.0 03/07 Normal [facility] CHEMISTRY Bili Indirect 0.3 mg/dL 0.0 - 1.0 03/07 Normal [facility] CHEMISTRY AST 11 unit/L 0 - 37 03/07 Normal [facility] CHEMISTRY Albumin Lvl 2.0 g/dL 3.5 - 5.0 03/07 LOW [facility] CHEMISTRY ALT 19 unit/L 0 - 65 03/07 Normal [facility] CHEMISTRY Amylase Lvl 26 unit/L 25 - 115 03/07 Normal [facility] CHEMISTRY Lipase Lvl 49 unit/L 73 - 393 03/07 [facility] HEMATOLOGY MPV 8.3 fL 7.4 - 10.4 03/07 Normal [facility] HEMATOLOGY MCH 24.7 pg 27.0 - 03/07 [facility] 31.0 [facility] HEMATOLOGY MCHC 32.6 g/dL 32.0 - 03/07 [facility] 36.0 [facility] HEMATOLOGY RDW 20.1 % 11.5 - 07 [facility] 14.5 [facility] HEMATOLOGY Platelet 362 K/CMM 133 - 450 03/07 Normal [facility] HEMATOLOGY MCV 75.7 fL 81.0 - 03/07 [facility] 99.0 /2012 [facility] HEMATOLOGY Hgb 8.8 g/dL 12.0 - 03/07 [facility] 16.0 [facility] HEMATOLOGY Hct 26.9 % 36.0 - 03/07 [facility] 48.0 /2012 [facility] HEMATOLOGY RBC 3.56 M/CMM 4.20 - 07 [facility] 5.40 /2012 [facility] HEMATOLOGY WBC 11.1 K/CMM 3.7 - 10.4 03/07 [facility] HEMATOLOGY Lymphocytes # 2.4 K/CMM 1.0 - 5.5 03/07 [facility] HEMATOLOGY Hypochrom Slight None Seen 03/07 Normal [facility] (03/07/2013 07:43:59) Center HEMATOLOGY Microcyte 2+ None Seen 03/07 [facility] *[facility]N* Center (03/07/2013 07:43:59) HEMATOLOGY Anisocyte 1+ None Seen 03/07 [facility] *[facility]* [place] (03/07/2013 07:43:59) HEMATOLOGY Basophils # 0.1 K/CMM 0.0 - 0.2 07/ Normal [facility] HEMATOLOGY Polychrom Slight None Seen 03/07 Normal [facility] (03/07/2013 07:43:59) Center HEMATOLOGY Basophils 0.8 % 0.0 - 1.0 / Normal [facility] HEMATOLOGY Eosinophils 1.3 % 0.0 - 4.0 / Normal [facility] HEMATOLOGY Segs-Bands # 7.6 K/CMM 1.5 - 8.1 03/07 [facility]2012 [facility] HEMATOLOGY Monocytes 8.1 % 2.0 - 12.0 03/07 Normal [facility]2012 [facility] HEMATOLOGY Monocytes # 0.9 K/CMM 0.0 - 0.8 / HI [facility] HEMATOLOGY Eosinophils # 0.1 K/CMM 0.0 - 0.5 03/07 [facility]2012 [facility] HEMATOLOGY Target Cell Slight None Seen 03/07 [facility] *[facility]* [place] (03/07/2013 07:43:59) HEMATOLOGY Plt Morph Normal 03/07 [facility] (03/07/2013 07:43:59) [place] HEMATOLOGY Lymphocytes 22.0 % 20.0 - 07 Normal [facility] 40.0 [facility] HEMATOLOGY Segs 67.8 % 45.0 - 07 Normal [facility] 75.0 [facility] CHEMISTRY Lactic Acid 1.7 mMol/L 0.5 - 2.2 03/07 Normal [facility] Lvl [facility] CHEMISTRY Total CK 21 unit/L 12 - 191 03/07 Normal [facility] CHEMISTRY Troponin-I null 0.00 - 07 Normal [facility] 0.40 [facility] CHEMISTRY eGFR 104 03/07 NA 6Result Comment: The eGFR is calculated using the CKD-EPI formula. In most young, healthy individuals the eGFR will be > 90 mL/min/1.73m2. The eGFR declines with age. An eGFR of 60-89 may be normal in [facility] mL/min/1. some populations, particularly the elderly, for whom the CKD-EPI formula has not been extensively validated. Use of the eGFR is not recommended in the following populations: [facility] Individuals with unstable creatinine concentrations, including [...] 27 meq/L 24 - 32 03/07 Normal [facility] CHEMISTRY Potassium Lvl 3.6 meq/L 3.5 - 5.1 03/07 Normal [facility]2012 [facility] CHEMISTRY Chloride Lvl 99 meq/L 95 - 109 03/07 Normal [facility]2012 [facility] CHEMISTRY Sodium Lvl 134 meq/L 135 - 145 03/07 LOW [facility] CHEMISTRY BUN 5 mg/dL 7 - 22 03/07 LOW [facility]2012 [facility] CHEMISTRY Creatinine 0.7 mg/dL 0.5 - 1.4 03/07 Normal [facility] CHEMISTRY Glucose Lvl 233 mg/dL 70 - 99 03/07 [place] 9Interpretive Data: Adult reference range values reflect the clinical guidelines of the [place] [employer]. [facility] CHEMISTRY Calcium Lvl 7.7 mg/dL 8.5 - 10.5 03/07 LOW [facility] CHEMISTRY AGAP 11.6 meq/L 10.0 - 03/07 Normal [facility] 20.0 [facility] CHEMISTRY Temp Art 37.0 Abby 03/07 NA [facility] CHEMISTRY pH Art 7.41 7.35 - 03/07 Normal [facility] 7.45 [facility] CHEMISTRY pCO2 Art 34 mm[Hg] 35 - 45 03/07 LOW [facility] CHEMISTRY O2 Sat Art 97.5 % 95.0 - 03/07 Normal [facility] 100.0 [facility] CHEMISTRY HCO3 Art 22 mMol/L 22 - 26 03/07 Normal [facility] CHEMISTRY BE Art -2 mMol/L -2-2 - 2 03/07 Normal [facility] CHEMISTRY pO2 Art 96 mm[Hg] 80 - 100 03/07 Normal [facility] Chest 1view Chest 1view EXAM: CHEST 1 VIEW 03/07 - - [facility] This report was dictated by a Casey Saw Operator/Fellow. I have personally reviewed the images as [...] CHEMISTRY Temp Mark 37.0 Abby 03/07 NA [facility] CHEMISTRY pO2 Mark 20 mm[Hg] 20 - 49 03/07 Normal [facility]2012 [facility] CHEMISTRY HCO3 Mark 21 mMol/L 22 - 26 03/07 LOW [facility] CHEMISTRY BE Mark -2 mMol/L -2-2 - 2 03/07 Normal [facility] CHEMISTRY O2 Sat Mark 36.2 % 40.0 - 03/07 [facility] 70.0 [facility] CHEMISTRY pCO2 Mark 29 mm[Hg] 38 - 52 03/07 LOW [facility]2012 [facility] CHEMISTRY pH Mark 7.46 7.28 - 03/07 [facility] 7.42 [facility] CHEMISTRY Lactic Acid 2.6 mMol/L 0.5 - 2.2 03/07 [facility] Lvl /2012 [facility] CHEMISTRY Phosphorus 3.1 mg/dL 2.5 - 4.5 03/07 Normal [facility] CHEMISTRY Magnesium Lvl 1.6 mg/dL 1.8 - 2.4 03/07 LOW [facility]2012 [facility] CHEMISTRY Total CK 31 unit/L 12 - 191 03/07 Normal [facility] CHEMISTRY Troponin-I null 0.00 - 03/07 Normal [facility] 0.40 [facility] CHEMISTRY U Preg Negative Negative 03/06 Normal [facility] (03/06/2013 18:25:00) Center URINALYSIS UA Amorph Occasional /HPF None Seen 03/06 ABN [facility] *ABN* Center (03/06/2013 18:25:00) URINALYSIS UA Mucus Few /LPF None Seen 03/06 Normal Medical (03/06/2013 18:25:00) Center URINALYSIS Micro? Performed 03/06 Normal [facility] (03/06/2013 18:25:00) Center URINALYSIS UA Sq Epi Moderate /LPF Few 03/06 ABN Medical *ABN* [place] (03/06/2013 18:25:00) URINALYSIS UA WBC 0-2 /HPF None Seen 03/06 Normal [facility] (03/06/2013 18:25:00) Center URINALYSIS UA RBC None Seen 0 - 2 03/06 Normal [facility] (03/06/2013 18:25:00) Center URINALYSIS UA Bacteria Few /HPF None Seen 03/06 Normal [facility] (03/06/2013 18:25:00) Center URINALYSIS UA Bili Negative Negative 03/06 NA Medical *NA* [facility] (03/06/2013 18:25:00) URINALYSIS UA 0.2 EU/dL 0.1 - 1.0 03/06 Normal [facility] Urobilinogen /2012 [facility] Center URINALYSIS UA Nitrite Negative Negative 03/06 Normal [facility] (03/06/2013 18:25:00) Center URINALYSIS UA Leuk Est Trace Negative 03/06 [facility] Medical *ABN* [place] (03/06/2013 18:25:00) URINALYSIS UA Blood Negative Negative 03/06 Normal [facility] (03/06/2013 18:25:00) Center URINALYSIS UA Ketones 40 mg/dL Negative 03/06 [facility] Medical *ABN* [facility] (03/06/2013 18:25:00) URINALYSIS UA Turbidity Clear Clear 03/06 Normal Medical (03/06/2013 18:25:00) Center URINALYSIS UA Color Yellow Yellow 03/06 NA Medical *NA* Center (03/06/2013 18:25:00) URINALYSIS UA Spec Grav 1.015 <=1.030 03/06 Normal [facility] Center URINALYSIS UA Protein Negative Negative 03/06 Normal [facility] (03/06/2013 18:25:00) Center URINALYSIS UA Glucose 250 mg/dL Negative 03/06 ABN Medical *ABN* Center (03/06/2013 18:25:00) URINALYSIS UA pH 7.5 5.0 - 8.0 03/06 Normal [facility] Chest 2 Chest 2 views EXAM: CHEST 2 VIEWS 03/06 - [facility] - [facility] This report was dictated by a Casey Saw Operator/Fellow. I have personally reviewed the images as [...] BEDSIDE Comment1 Notify 12/07 NA [facility]i GLUCOSE MARTÍNEZ/ /2012 [facility] TESTING [facility] BEDSIDE Gluc POC 64 mg/dL 70 - 99 12/07 LOW 3Interpretive [facility] GLUCOSE [facility] Data: Medical TESTING [facility] Upper Reportable Limit: 200 mg/dL. BEDSIDE Gluc POC 50 mg/dL 70 - 99 12/07 LOW 4Interpretive [facility] GLUCOSE [facility] Data: Medical TESTING [place] Upper Reportable Limit: 200 mg/dL. BEDSIDE Comment1 Notify 12/07 NA Fei ROACH RN/ /2012 [facility] TESTING Center BEDSIDE Gluc POC 45 mg/dL 70 - 99 12/07 LOW 5Interpretive [facility] GLUCOSE [facility] Data: Medical TESTING Center Upper Reportable Limit: 200 mg/dL. BEDSIDE Comment1 Notify 12/07 NA [facility] GLUCOSE RN/MD /2012 [facility] CHEMISTRY eGFR 109 12/07 NA 7Result Comment: The eGFR is calculated using the CKD-EPI formula. In most young, healthy individuals the eGFR will be > 90 mL/min/1.73m2. The eGFR declines with age. An eGFR of 60-89 may be normal in [facility] mL/min/1.7 /2012 some populations, particularly the elderly, for whom the CKD-EPI formula has not been extensively validated. Use of the eGFR is not recommended in the following populations: [address] Individuals with unstable creatinine concentrations, including [...] 8.3 mg/dL 8.5 - 10.5 12/07 LOW [facility] CHEMISTRY AGAP 12.8 meq/L 10.0 - 12/07 Normal [facility] . [facility] CHEMISTRY BUN 2 mg/dL 7 - 22 12/07 LOW [facility] CHEMISTRY Glucose Lvl 95 mg/dL 70 - 99 12/07 Normal 10Interpretive Data: Adult reference range values reflect the clinical guidelines of the [place] [employer]. [facility] CHEMISTRY Potassium Lvl 3.8 meq/L 3.5 - 5.1 12/07 Normal [facility] CHEMISTRY Creatinine 0.6 mg/dL 0.5 - 1.4 12/07 Normal [facility] CHEMISTRY Sodium Lvl 140 meq/L 135 - 145 12/07 Normal [facility] CHEMISTRY Chloride Lvl 105 meq/L 95 - 109 12/07 Normal [facility] CHEMISTRY CO2 26 meq/L 24 - 32 12/07 Normal [facility] BEDSIDE Comment2 Verify 12/06 NA [facility] GLUCOSE w/Lab [facility] BEDSIDE Comment2 Verify 12/06 NA [facility] GLUCOSE w/Lab /2012 [facility] CHEMISTRY AGAP 13.5 meq/L 10.0 - 12/06 Normal [facility] 20. [facility] CHEMISTRY Calcium Lvl 8.1 mg/dL 8.5 - 10.5 / LOW [facility] CHEMISTRY CO2 28 meq/L 24 - 32 12/06 Normal [facility] CHEMISTRY Chloride Lvl 101 meq/L 95 - 109 12/06 Normal [facility] CHEMISTRY eGFR 104 12/06 NA 8Result Comment: The eGFR is calculated using the CKD-EPI formula. In most young, healthy individuals the eGFR will be > 90 mL/min/1.73m2. The eGFR declines with age. An eGFR of 60-89 may be normal in [facility] mL/min/1. some populations, particularly the elderly, for whom the CKD-EPI formula has not been extensively validated. Use of the eGFR is not recommended in the following populations: [address] Individuals with unstable creatinine concentrations, including [...] reflect the clinical guidelines of the [place] [employer]. [facility] CHEMISTRY BUN 2 mg/dL 7 - 22 12/06 [facility] CHEMISTRY Creatinine 0.7 mg/dL 0.5 - 1.4 12/06 Normal [facility] CHEMISTRY Sodium Lvl 139 meq/L 135 - 145 12/06 Normal [facility] CHEMISTRY Potassium Lvl 3.5 meq/L 3.5 - 5.1 12/06 Normal [facility] CHEMISTRY Lipase Lvl 62 unit/L 73 - 393 12/06 LOW [facility] CHEMISTRY Alk Phos 92 unit/L 39 - 136 12/06 Normal [facility]2012 [facility] CHEMISTRY Albumin Lvl 2.7 g/dL 3.5 - 5.0 12/06 LOW [facility] CHEMISTRY Total Protein 5.8 g/dL 6.4 - 8.4 12/06 LOW [facility] CHEMISTRY Globulin 3.1 g/dL 2.0 - 4.0 / Normal [facility] CHEMISTRY A/G Ratio 0.9 0.7 - 1.6 12/06 Normal [facility] CHEMISTRY AST 74 unit/L 0 - 37 12/06 HI [facility] CHEMISTRY ALT 50 unit/L 0 - 65 12/06 Normal [facility] CHEMISTRY Bili Indirect 0.1 mg/dL 0.0 - 1.0 12/06 Normal [facility] CHEMISTRY Bili Total 0.2 mg/dL 0.2 - 1.3 12/06 Normal [facility] CHEMISTRY Bili Direct 0.1 mg/dL 0.0 - 0.3 12/06 Normal [facility] CHEMISTRY eGFR 109 12/05 NA 9Result Comment: The eGFR is calculated using the CKD-EPI formula. In most young, healthy individuals the eGFR will be > 90 mL/min/1.73m2. The eGFR declines with age. An eGFR of 60-89 may be normal in [facility] mL/min/1.7 some populations, particularly the elderly, for whom the CKD-EPI formula has not been extensively validated. Use of the eGFR is not recommended in the following populations: [address] Individuals with unstable creatinine concentrations, including [...] reflect the clinical guidelines of the [place] [employer]. [facility] CHEMISTRY Creatinine 0.6 mg/dL 0.5 - 1.4 12/05 Normal [facility] Lvl [facility] CHEMISTRY BUN 1 mg/dL 7 - 22 12/05 LOW [facility] CHEMISTRY Chloride Lvl 102 meq/L 95 - 109 12/05 Normal [facility] CHEMISTRY Potassium Lvl 3.3 meq/L 3.5 - 5.1 12/05 LOW [facility] CHEMISTRY Sodium Lvl 140 meq/L 135 - 145 12/05 Normal [facility] CHEMISTRY Calcium Lvl 7.9 mg/dL 8.5 - 10.5 12/05 LOW [facility] CHEMISTRY CO2 29 meq/L 24 - 32 12/05 Normal [facility] CHEMISTRY AGAP 12.3 meq/L 10.0 - 12/05 Normal [place] 20.0 [facility] CHEMISTRY Ca Norm mgdL 4.84 mg/dL 4.65 - 12/03 Normal [facility] 5. [facility] CHEMISTRY Ca Ion mgdL 4.84 mg/dL 4.65 - 12/03 Normal [facility] 5. [facility] CHEMISTRY Ca Ion 1.21 1.16 - 12/03 Normal [place] mMol/L 1. [facility] CHEMISTRY Ca Norm 1.21 1.16 - 12/03 Normal [facility] mMol/L . [facility] CHEMISTRY Magnesium Lvl 1.8 mg/dL 1.8 - 2.4 12/03 Normal [facility] CHEMISTRY Phosphorus 3.4 mg/dL 2.5 - 4.5 12/03 Normal [facility] HEMATOLOGY Lymphocytes # 1.8 K/CMM 1.0 - 5.5 12/03 Normal [facility] HEMATOLOGY Lymphocytes 23.6 % 20.0 - 12/03 Normal [facility] 40.0 [facility] HEMATOLOGY Eosinophils 2.9 % 0.0 - 4.0 12/03 Normal [facility] HEMATOLOGY Monocytes 9.1 % 2.0 - 12.0 12/03 Normal [facility] HEMATOLOGY Basophils 0.6 % 0.0 - 1.0 12/03 Normal [facility] HEMATOLOGY Segs-Bands # 5.0 K/CMM 1.5 - 8.1 12/03 Normal [facility] HEMATOLOGY Segs 63.8 % 45.0 - 12/03 Normal [facility] 75.0 [facility] HEMATOLOGY Monocytes # 0.7 K/CMM 0.0 - 0.8 12/03 Normal [facility] HEMATOLOGY Eosinophils # 0.2 K/CMM 0.0 - 0.5 12/03 Normal [facility] HEMATOLOGY Microcyte 1+ None Seen 12/03 ABN Medical *ABN* Center (12/03/2012 01:02:00) HEMATOLOGY WBC 7.8 K/CMM 3.7 - 10.4 12/03 Normal [facility] HEMATOLOGY Hct 27.8 % 36.0 - 12/03 LOW [facility] 48.0 /2012 [facility] HEMATOLOGY MPV 8.5 fL 7.4 - 10.4 12/03 Normal [facility] HEMATOLOGY MCHC 32.4 g/dL 32.0 - 12/03 Normal [facility] 36.0 /2012 [facility] HEMATOLOGY RDW 18.9 % 11.5 - 12/03 HI [facility] 14.5 /2012 [facility] HEMATOLOGY MCH 24.6 pg 27.0 - 12/03 LOW [facility] 31.0 /2012 [facility] HEMATOLOGY RBC 3.66 M/CMM 4.20 - 12/03 LOW [facility] 5.40 /2012 [facility] HEMATOLOGY MCV 75.9 fL 81.0 - 12/03 [facility] 99.0 [facility] HEMATOLOGY Platelet 224 K/CMM 133 - 450 12/03 Normal [facility] HEMATOLOGY Hgb 9.0 g/dL 12.0 - 12/03 LOW [facility] 16.0 [facility] Microbiolog Culture: 12/02 [facility] y Blood /2012 [facility] Microbiolog Culture: MRSA 12/02 [facility] y /2012 [facility] Microbiolog Culture: 12/02 [facility] y Resistant [facility] Center Screen CHEMISTRY Ketone 1.42 <=0.27 12/02 [facility] Quantitative mmol/L /2012 [facility] URINALYSIS UA WBC 1 /HPF 0 - 5 12/02 Normal [facility] URINALYSIS UA RBC null 0 - 2 12/02 Normal [facility] URINALYSIS UA <=1.0 0.1 - 1.0 12/02 NA [facility] Urobilinogen mg/dL /2012 [facility]
*NA*< Center br/>(12/02 04:02:55) <sup> </sup> URINALYSIS UA Sq Epi Moderate /LPF Few 12/02 ABN Medical *ABN* Center (12/02/2012 04:02:55) URINALYSIS UA Leuk Est Negative Negative 12/02 Normal [facility] (12/02/2012 04:02:55) Center URINALYSIS UA Nitrite Negative Negative 12/02 Normal [facility] (12/02/2012 04:02:55) Center URINALYSIS UA Mucus Few /LPF None Seen 12/02 NA Medical *NA* Center (12/02/2012 04:02:55) URINALYSIS UA Ketones 40 mg/dL Negative 12/02 ABN [facility] *ABN* Center (12/02/2012 04:02:55) URINALYSIS UA Blood Negative Negative 12/02 Normal [facility] (12/02/2012 04:02:55) Center URINALYSIS UA Glucose >=1000 mg/dL Negative 12/02 ABN [facility] *ABN* Center (12/02/2012 04:02:55) URINALYSIS UA Bili Negative Negative 12/02 NA Medical *NA* Center (12/02/2012 04:02:55) URINALYSIS UA Protein Negative mg/dL Negative 12/02 Normal [facility] (12/02/2012 04:02:55) Center URINALYSIS UA Turbidity Clear Clear 12/02 Normal [facility] (12/02/2012 04:02:55) Center URINALYSIS UA pH 5.5 5.0 - 8.0 12/02 Normal [facility] URINALYSIS UA Spec Grav 1.010 <=1.030 12/02 Normal [facility] URINALYSIS UA Color Yellow Yellow 12/02 NA [facility] *NA* Center (12/02/2012 04:02:55) HEMATOLOGY MPV 8.9 fL 7.4 - 10.4 12/02 Normal [facility] HEMATOLOGY Hct 27.9 % 36.0 - 12/02 LOW [facility] 48.0 [facility] HEMATOLOGY MCV 76.1 fL 81.0 - 12/02 LOW [facility] 99.0 [facility] HEMATOLOGY MCH 25.2 pg 27.0 - 12/02 LOW [facility] 31.0 [facility] HEMATOLOGY MCHC 33.2 g/dL 32.0 - 12/02 Normal [facility] 36.0 [facility] HEMATOLOGY RDW 19.3 % 11.5 - 12/02 HI [facility] 14.5 [facility] HEMATOLOGY Platelet 224 K/CMM 133 - 450 12/02 Normal [facility] HEMATOLOGY WBC 8.6 K/CMM 3.7 - 10.4 12/02 Normal [facility] HEMATOLOGY Hgb 9.3 g/dL 12.0 - 12/02 LOW [facility] 16.0 /2012 [facility] HEMATOLOGY RBC 3.67 M/CMM 4.20 - 12/02 LOW [facility] 5.40 /2012 [facility] HEMATOLOGY Segs-Bands # 6.4 K/CMM 1.5 - 8.1 12/02 Normal [facility] HEMATOLOGY Lymphocytes # 1.5 K/CMM 1.0 - 5.5 12/02 Normal [facility] HEMATOLOGY Eosinophils 0.6 % 0.0 - 4.0 12/02 Normal [facility] HEMATOLOGY Basophils 0.7 % 0.0 - 1.0 12/02 Normal [facility] HEMATOLOGY Lymphocytes 17.3 % 20.0 - 12/02 [facility] 40.0 [facility] HEMATOLOGY Monocytes # 0.7 K/CMM 0.0 - 0.8 12/02 Normal [facility] HEMATOLOGY Microcyte 1+ None Seen 12/02 ABN [facility] *ABN* Center (12/02/2012 04:02:51) HEMATOLOGY Eosinophils # 0.1 K/CMM 0.0 - 0.5 12/02 Normal [facility] HEMATOLOGY Basophils # 0.1 K/CMM 0.0 - 0.2 12/02 Normal [facility] HEMATOLOGY Segs 73.8 % 45.0 - 12/02 Normal [facility] 75.0 [facility] HEMATOLOGY Monocytes 7.6 % 2.0 - 12.0 12/02 Normal [facility] Microbiolog Culture: 12/02 [facility] y [facility] CHEMISTRY POC A Glu 305 mg/dL 70 - 99 12/02 HI [facility] CHEMISTRY POC A Hct 29.0 % 36.0 - 12/02 LOW [facility] 48.0 [facility] CHEMISTRY POC A O2 Sat 97.0 % 95.0 - 12/02 [facility] 100.0 [facility] CHEMISTRY POC A K 3.4 meq/L 3.5 - 5.1 12/02 LOW [facility] CHEMISTRY POC A Na 130 meq/L 135 - 145 12/02 LOW [facility] CHEMISTRY POC A PCO2 38 mm[Hg] 35 - 45 12/02 Normal [facility] CHEMISTRY POC A BE 2 mMol/L -2-2 - 2 12/02 Normal [facility] CHEMISTRY POC A HCO3 26 mMol/L 22 - 26 12/02 Normal [facility] CHEMISTRY POC A Source ART 12/02 NA [facility] CHEMISTRY POC A PO2 89 mm[Hg] 80 - 100 12/02 Normal [facility] CHEMISTRY POC A pH 7.44 7.35 - 12/02 Normal [facility] 7.45 [facility] CHEMISTRY POC A Temp 37.0 Abby 12/02 NA [facility] CHEMISTRY POC A Ca Ion 1.12 1.16 - 12/02 LOW [place] mMol/L 1.30 [facility] CHEMISTRY POC A LA 0.8 mMol/L 0.5 - 2.2 12/02 Normal [facility] CHEMISTRY Magnesium Lvl 1.9 mg/dL 1.8 - 2.4 12/02 Normal [facility] CHEMISTRY Phosphorus 2.7 mg/dL 2.5 - 4.5 12/02 Normal [facility] CHEMISTRY Ca Norm mgdL 4.36 mg/dL 4.65 - 12/02 LOW [place] 5. [facility] CHEMISTRY Ca Ion 1.14 1.16 - 12/02 LOW [place] mMol/L 1. [facility] CHEMISTRY Ca Ion mgdL 4.56 mg/dL 4.65 - 12/02 LOW [place] . [facility] CHEMISTRY Ca Norm 1.09 1.16 - 12/02 LOW [place] mMol/L 1. [facility] HEMATOLOGY Platelet 223 K/CMM 133 - 450 12/02 Normal [facility] HEMATOLOGY MPV 9.2 fL 7.4 - 10.4 12/02 Normal [facility] HEMATOLOGY MCHC 32.3 g/dL 32.0 - 12/02 Normal [place] 36.0 [facility] HEMATOLOGY RDW 19.2 % 11.5 - 12/02 HI [place] 14.5 [facility] HEMATOLOGY WBC 7.6 K/CMM 3.7 - 10.4 12/02 Normal [facility] HEMATOLOGY Hgb 9.2 g/dL 12.0 - 12/02 LOW [place] 16.0 [facility] HEMATOLOGY Hct 28.6 % 36.0 - 12/02 LOW [place] 48.0 [facility] HEMATOLOGY MCV 76.3 fL 81.0 - 12/02 LOW [place] 99.0 /2012 [facility] HEMATOLOGY MCH 24.6 pg 27.0 - 12/02 LOW [place] 31.0 [facility] HEMATOLOGY RBC 3.74 M/CMM 4.20 - 12/02 LOW [place] 5.40 /2012 [facility] HEMATOLOGY Microcyte 1+ None Seen 12/02 ABN Medical *ABN* Center (12/02/2012 03:00:00) HEMATOLOGY Basophils # 0.1 K/CMM 0.0 - 0.2 12/02 Normal [facility] HEMATOLOGY Monocytes # 0.6 K/CMM 0.0 - 0.8 12/02 Normal [facility] HEMATOLOGY Lymphocytes # 1.9 K/CMM 1.0 - 5.5 12/02 Normal [facility] HEMATOLOGY Segs-Bands # 5.0 K/CMM 1.5 - 8.1 12/02 Normal [facility] HEMATOLOGY Segs 65.5 % 45.0 - 12/02 Normal [place] 75.0 [facility] HEMATOLOGY Lymphocytes 25.0 % 20.0 - 12/02 Normal [place] 40.0 [facility] HEMATOLOGY Monocytes 8.4 % 2.0 - 12.0 12/02 Normal [facility] HEMATOLOGY Eosinophils 0.4 % 0.0 - 4.0 12/02 Normal [facility] HEMATOLOGY Basophils 0.7 % 0.0 - 1.0 12/02 Normal [facility] CHEMISTRY Magnesium Lvl 2.0 mg/dL 1.8 - 2.4 12/01 Normal [facility] CHEMISTRY Ca Norm mgdL 4.48 mg/dL 4.65 - 12/01 LOW [facility] 5. [facility] CHEMISTRY Ca Ion mgdL 4.68 mg/dL 4.65 - 12/01 Normal [facility] 5. [facility] CHEMISTRY Ca Ion 1.17 1.16 - 12/01 Normal [facility] mMol/L . [facility] CHEMISTRY Ca Norm 1.12 1.16 - 12/01 LOW [facility] mMol/L . [facility] CHEMISTRY Phosphorus 2.7 mg/dL 2.5 - 4.5 12/01 Normal [facility] URINALYSIS UA <=1.0 0.1 - 1.0 11/30 NA [facility] Urobilinogen mg/dL /2012 Medical
*NA*< Center br/>(11/30 17:41:33) <sup> </sup> URINALYSIS UA Mucus Few /LPF None Seen 11/30 NA Medical *NA* [facility] (11/30/2012 17:41:33) URINALYSIS UA WBC null 0 - 5 11/30 Normal [facility] Center URINALYSIS UA Sq Epi Moderate /LPF Few 11/30 ABN Medical *ABN* [facility] (11/30/2012 17:41:33) URINALYSIS UA Protein Negative mg/dL Negative 11/30 Normal [facility] (11/30/2012 17:41:33) Center URINALYSIS UA pH 5.0 5.0 - 8.0 11/30 Normal [facility] URINALYSIS UA Spec Grav 1.004 <=1.030 11/30 Normal [facility] URINALYSIS UA Turbidity Clear Clear 11/30 Normal [facility] (11/30/2012 17:41:33) Center URINALYSIS UA Color Light Yellow Yellow 11/30 NA Medical *NA* [facility] (11/30/2012 17:41:33) URINALYSIS UA Leuk Est Negative Negative 11/30 Normal [facility] (11/30/2012 17:41:33) Center URINALYSIS UA Nitrite Negative Negative 11/30 Normal [facility] (11/30/2012 17:41:33) Center URINALYSIS UA Blood Negative Negative 11/30 Normal [facility] (11/30/2012 17:41:33) Center URINALYSIS UA Bili Negative Negative 11/30 NA Medical *NA* [facility] (11/30/2012 17:41:33) URINALYSIS UA Ketones 10 mg/dL Negative 11/30 ABN Medical *ABN* [facility] (11/30/2012 17:41:33) URINALYSIS UA Glucose Negative mg/dL Negative 11/30 NA Medical *NA* Center (11/30/2012 17:41:33) CHEMISTRY Ketone 1.65 <=0.27 11/30 HI [facility] Quantitative mmol/L /2012 [facility] Center HEMATOLOGY PT 14.1 s 12.0 - 11/30 Normal [facility] 14.7 [facility] HEMATOLOGY PTT 28.1 s 22.9 - 11/30 Normal 18Interpretiv [place] 35.8 /2012 e Data: [facility] Therapeutic Range: 57 - 92 Seconds HEMATOLOGY INR 1.07 0.85 - 11/30 Normal 16Interpretive Data: RECOMMENDED RANGES FOR PROTIME INR: [facility] . 2.0-3.0 for most medical and surgical thromboembolic states. Medical 2.5-3.5 for artificial heart valves and recurrent embolism. Center INR SHOULD BE USED ONLY FOR PATIENTS ON STABLE ANTICOAGULANT THERAPY. CHEMISTRY U Potassium 31.2 meq/L 11/30 NA 14Interpretiv e Data: No [facility] established Center reference ranges. CHEMISTRY U Sodium 87 meq/L 11/30 NA 13Interpretiv e Data: No [facility] established Center reference ranges. CHEMISTRY U Chloride 134 meq/L 11/30 NA [facility] CHEMISTRY Bili Total 0.4 mg/dL 0.2 - 1.3 11/30 Normal [facility] CHEMISTRY Total Protein 6.3 g/dL 6.4 - 8.4 11/30 LOW [facility] CHEMISTRY Albumin Lvl 2.9 g/dL 3.5 - 5.0 11/30 LOW [facility] CHEMISTRY Alk Phos 127 unit/L 39 - 136 11/30 Normal [facility] CHEMISTRY Bili Direct 0.2 mg/dL 0.0 - 0.3 11/30 Normal [facility] CHEMISTRY AST 22 unit/L 0 - 37 11/30 Normal [facility] CHEMISTRY ALT 20 unit/L 0 - 65 11/30 Normal [facility] CHEMISTRY A/G Ratio 0.9 0.7 - 1.6 11/30 Normal [facility] CHEMISTRY Bili Indirect 0.2 mg/dL 0.0 - 1.0 11/30 Normal [facility] CHEMISTRY Globulin 3.4 g/dL 2.0 - 4.0 11/30 Normal [facility] HEMATOLOGY Basophils # 0.1 K/CMM 0.0 - 0.2 11/30 Normal [facility] HEMATOLOGY PT 13.9 s 12.0 - 11/30 Normal [facility] 14. [facility] HEMATOLOGY PTT 26.5 s 22.9 - 11/30 Normal 19Interpretiv [facility] 35.8 /2012 e Data: [facility] Therapeutic Range: 57 - 92 Seconds HEMATOLOGY INR 1.05 0.85 - 11/30 Normal 17Interpretive Data: RECOMMENDED RANGES FOR PROTIME INR: [facility] . 2.0-3.0 for most medical and surgical thromboembolic states. Medical 2.5-3.5 for artificial heart valves and recurrent embolism. Center INR SHOULD BE USED ONLY FOR PATIENTS ON STABLE ANTICOAGULANT THERAPY. CHEMISTRY POC V Temp 37.0 Abby 11/29 NA [facility] CHEMISTRY POC V Ion Ca 1.16 1.16 - 11/29 Normal [facility] mMol/L 1.30 [facility] CHEMISTRY POC V K 3.5 meq/L 3.5 - 5.1 11/29 Normal [facility] CHEMISTRY POC V Na 139 meq/L 135 - 145 11/29 Normal [facility] CHEMISTRY POC V LA 0.8 mMol/L 0.5 - 2.2 11/29 Normal [facility] CHEMISTRY POC V Source MARK 11/29 NA [facility] CHEMISTRY POC V O2 Sat 86.0 % 40.0 - 11/29 [facility] 70.0 [facility] CHEMISTRY POC V Glu 144 mg/dL 70 - 99 11/29 [facility] CHEMISTRY POC V BE -4 mmol/L -2-2 - 2 11/29 LOW [facility] CHEMISTRY POC V pH 7.42 7.28 - 11/29 Normal [facility] 7.42 [facility] CHEMISTRY POC V PCO2 31 mm[Hg] 38 - 52 11/29 LOW [facility] CHEMISTRY POC V PO2 51 mm[Hg] 20 - 49 11/29 [facility] CHEMISTRY POC V HCO3 20 mmol/L 22 - 26 11/29 LOW [facility] CHEMISTRY Troponin-I 0.05 ng/mL 0.00 - 11/29 Normal [facility] 0.40 [facility] CHEMISTRY Total CK 46 unit/L 12 - 191 11/29 Normal [facility] CHEMISTRY Troponin-T null 0.000 - 11/29 Normal [facility] 0.100 [facility] CHEMISTRY Ketone 4.63 <=0.27 11/29 HI [facility] [place] Quantitative mmol/L /2012 [facility] CHEMISTRY POC A Ca Ion 1.17 1.16 - 11/29 Normal [facility] mMol/L 1.30 [facility] CHEMISTRY POC A K 3.6 meq/L 3.5 - 5.1 11/29 Normal [facility] CHEMISTRY POC A Na 137 meq/L 135 - 145 11/29 Normal [facility] CHEMISTRY POC A Glu 327 mg/dL 70 - 99 11/29 HI [facility] CHEMISTRY POC A LA 1.3 mMol/L 0.5 - 2.2 11/29 Normal [facility] CHEMISTRY POC A Temp 37.0 Abby 11/29 NA [facility] CHEMISTRY POC A Source ART 11/29 NA [facility] CHEMISTRY POC A O2 Sat 98.0 % 95.0 - 11/29 Normal [facility] 100.0 [facility] CHEMISTRY POC A BE -11 mMol/L -2-2 - 2 11/29 LOW [facility] CHEMISTRY POC A HCO3 14 mMol/L 22 - 11/29 LOW [facility] CHEMISTRY POC A PCO2 26 mm[Hg] 35 - 45 11/29 CRIT [facility] CHEMISTRY POC A PO2 115 mm[Hg] 80 - 100 11/29 HI [facility] CHEMISTRY POC A pH 7.33 7.35 - 11/29 LOW [facility] 7.45 [facility] BACTERIAL - MRSA by PCR Positive 1, 2 11/29 ABN 2Interpretive Data: Interpretive Data: The [employer] MRSA assay is a qualitative test for the direct detection of nasal colonization with methicillin-resistant Staphylococcus aureus (MRSA) to aid [facility] in the prevention and control of MRSA [...] by the Molecular Diagnostic Laboratory within the [facility]. The Molecular Diagnostic Labor atory is authorized under the Clinical Laboratory Improvement Amendment of 1988 (CLIA-88) to perform high complexity testing. CHEMISTRY Temp Art 37.0 Abby 11/29 NA [facility] CHEMISTRY O2 Sat Art 96.6 % 95.0 - 11/29 Normal [facility] 100.0 [facility] CHEMISTRY pO2 Art 96 mm[Hg] 80 - 100 11/29 Normal [facility] CHEMISTRY pCO2 Art 25 mm[Hg] 35 - 45 11/29 CRIT 15Result Comment: [facility] Result(s) called to jose rodriguez at _11/29/2012 12:25:56 CDT bykak_. Read back OK. CHEMISTRY BE Art -12 mMol/L -2-2 - 2 11/29 LOW [facility] CHEMISTRY HCO3 Art 12 mMol/L - 11/29 LOW [facility] CHEMISTRY pH Art 7.30 7.35 - 11/29 LOW [facility] 7.45 [facility] CHEMISTRY A/G Ratio 0.8 0.7 - 1.6 11/29 Normal [facility] CHEMISTRY Globulin 4.0 g/dL 2.0 - 4.0 11/29 Normal [facility] CHEMISTRY AST 17 unit/L 0 - 37 11/29 Normal [facility] CHEMISTRY Bili Total 0.8 mg/dL 0.2 - 1.3 11/29 Normal [facility] CHEMISTRY B/C Ratio 14 6 - 11/29 Normal [facility] CHEMISTRY Total Protein 7.4 g/dL 6.4 - 8.4 11/29 Normal [facility] CHEMISTRY ALT 22 unit/L 0 - 65 11/29 Normal [facility] CHEMISTRY Albumin Lvl 3.4 g/dL 3.5 - 5.0 11/29 LOW [facility] CHEMISTRY Alk Phos 126 unit/L 39 - 136 11/29 Normal [facility] CHEMISTRY Troponin-I null 0.00 - 11/29 Normal [facility] 0.40 [facility] CHEMISTRY Lipase Lvl 70 unit/L 73 - 393 11/29 LOW [facility] CHEMISTRY B/C Ratio 10 6 - 25 11/29 Normal [facility] HEMATOLOGY Hypochrom Slight None Seen 11/29 Normal Medical (11/28/2012 21:00:20) Center HEMATOLOGY Polychrom Slight None Seen 11/29 Normal [facility] (11/28/2012 21:00:20) Center HEMATOLOGY Anisocyte 1+ None Seen 11/29 [facility] Medical *ABN* [place] (11/28/2012 21:00:20) HEMATOLOGY Large Plt Slight None Seen 11/29 [facility] Medical *ABN* [facility] (11/28/2012 21:00:20) HEMATOLOGY Eosinophils # 0.2 K/CMM 0.0 - 0.5 11/29 Normal [facility] CHEMISTRY U Preg Negative Negative 11/29 Normal [facility] (11/28/2012 20:55:00) [facility] URINALYSIS UA Blood Negative Negative 11/29 [facility] (11/28/2012 20:55:00) [facility] URINALYSIS UA Bili Small 6 Negative 11/29 [facility] 6Result Comment: Interpret positive bilirubin results with caution. Confirmatory testing not possible due to the unavailability of reagent. Correlation with Medical *ABN* serum chemistry results recommended. [facility] (11/28/2012 20:55:00) URINALYSIS UA Protein Negative Negative 11/29 Normal [facility] (11/28/2012 20:55:00) [facility] URINALYSIS Micro? Not Indicated 11/29 Normal [facility] (11/28/2012 20:55:00) [facility] URINALYSIS UA Glucose Negative Negative 11/29 Normal [facility] (11/28/2012 20:55:00) [facility] URINALYSIS UA Ketones 40 mg/dL Negative 11/29 [facility] Medical *ABN* [facility] (11/28/2012 20:55:00) URINALYSIS UA Leuk Est Negative Negative 11/29 Normal [facility] (11/28/2012 20:55:00) [facility] URINALYSIS UA 0.2 EU/dL 0.1 - 1.0 11/29 Normal [facility] Urobilinogen /2012 [facility] URINALYSIS UA Nitrite Negative Negative 11/29 Normal [facility] (11/28/2012 20:55:00) [facility] URINALYSIS UA Spec Grav 1.010 <=1.030 11/29 Normal [facility] URINALYSIS UA pH 6.0 5.0 - 8.0 11/29 Normal [facility] URINALYSIS UA Color Yellow Yellow 11/29 NA Medical *NA* Center (11/28/2012 20:55:00) URINALYSIS UA Turbidity Clear Clear 11/29 Normal [facility] (11/28/2012 20:55:00) Center BEDSIDE Comment1 Notify 11/17 [facility] GLUCOSE RN/ Medical TESTING Center BEDSIDE Gluc POC 219 mg/dL 70 - 99 11/17 [place] 1Interpretive [facility] GLUCOSE [facility] Data: Medical TESTING Center Upper Reportable Limit: 200 mg/dL. BEDSIDE Gluc POC 255 mg/dL 70 - 99 11/17 [place] 2Interpretive [facility] GLUCOSE [facility] Data: [facility] Center Upper Reportable Limit: 200 mg/dL. BEDSIDE Comment1 Notify 11/17 [facility] GLUCOSE RN/ [facility] CHEMISTRY Troponin-T null 0.000 - 11/17 Normal [facility] 0.100 [facility] CHEMISTRY Troponin-I null 0.00 - 11/17 Normal [facility] 0.40 [facility] CHEMISTRY Total CK 52 unit/L 12 - 191 11/17 Normal [facility] CHEMISTRY eGFR 109 11/17 4Result Comment: The eGFR is calculated using the CKD-EPI formula. In most young, healthy individuals the eGFR will be > 90 mL/min/1.73m2. The eGFR declines with age. An eGFR of 60-89 may be normal in [facility] mL/min/1.7 some populations, particularly the elderly, for whom the CKD-EPI formula has not been extensively validated. Use of the eGFR is not recommended in the following populations: [place] [id number] Center Individuals with unstable creatinine concentrations, including [...] 7.7 mg/dL 8.5 - 10.5 11/17 LOW [facility] CHEMISTRY AGAP 16.2 meq/L 10.0 - 11/17 Normal [facility] 20.0 [facility] CHEMISTRY Chloride Lvl 100 meq/L 95 - 109 11/17 Normal [facility] CHEMISTRY Potassium Lvl 4.2 meq/L 3.5 - 5.1 11/17 Normal [facility] CHEMISTRY Sodium Lvl 134 meq/L 135 - 145 11/17 LOW [facility] CHEMISTRY CO2 22 meq/L 24 - 32 11/17 LOW [facility] CHEMISTRY Creatinine 0.6 mg/dL 0.5 - 1.4 11/17 Normal [facility] /2012 [facility] CHEMISTRY BUN 4 mg/dL 7 - 22 11/17 LOW [facility] CHEMISTRY Glucose Lvl 237 mg/dL 70 - 99 11/17 [place] 6Interpretive Data: Adult reference range values reflect the clinical guidelines of the [place] [employer]. [facility] CHEMISTRY Magnesium Lvl 1.4 mg/dL 1.8 - 2.4 11/17 LOW [facility] CHEMISTRY Phosphorus 3.4 mg/dL 2.5 - 4.5 11/17 Normal 2012 [facility] HEMATOLOGY Segs 60.3 % 45.0 - 11/17 Normal [facility] 75.0 [facility] HEMATOLOGY Monocytes 9.0 % 2.0 - 12.0 11/17 Normal [facility] HEMATOLOGY Lymphocytes 27.8 % 20.0 - 11/17 [facility] 40.0 [facility] HEMATOLOGY Eosinophils 2.1 % 0.0 - 4.0 11/17 Normal [facility] HEMATOLOGY Lymphocytes # 2.3 K/CMM 1.0 - 5.5 11/17 Normal [facility] HEMATOLOGY Eosinophils # 0.2 K/CMM 0.0 - 0.5 11/17 Normal [facility] HEMATOLOGY Basophils 0.8 % 0.0 - 1.0 11/17 Normal [facility] HEMATOLOGY Segs-Bands # 5.1 K/CMM 1.5 - 8.1 11/17 Normal [facility] HEMATOLOGY Basophils # 0.1 K/CMM 0.0 - 0.2 11/17 Normal [facility] HEMATOLOGY Monocytes # 0.8 K/CMM 0.0 - 0.8 11/17 Normal [facility] HEMATOLOGY Microcyte 1+ None Seen 11/17 ABN Medical *ABN* Center (11/17/2012 04:33:00) HEMATOLOGY INR 1.09 0.85 - 11/17 Normal 8Interpretive Data: RECOMMENDED RANGES FOR PROTIME INR: [facility] 1.17 2.0-3.0 for most medical and surgical thromboembolic states. Medical 2.5-3.5 for artificial heart valves and recurrent embolism. Center INR SHOULD BE USED ONLY FOR PATIENTS ON STABLE ANTICOAGULANT THERAPY. HEMATOLOGY PT 14.3 s 12.0 - 11/17 Normal [facility] 14.7 /2012 [facility] HEMATOLOGY PTT 31.8 s 22.9 - 11/17 Normal 9Interpretive [facility] 35.8 /2012 Data: Heparin [facility] Range: 57 - 92 [facility] HEMATOLOGY Platelet 177 K/CMM 133 - 450 11/17 Normal [facility] HEMATOLOGY MPV 9.5 fL 7.4 - 10.4 11/17 Normal [facility] HEMATOLOGY MCH 24.5 pg 27.0 - 11/17 LOW [facility] 31.0 /2012 [facility] HEMATOLOGY RDW 18.9 % 11.5 - 11/17 HI [facility] 14.5 /2012 [facility] HEMATOLOGY MCHC 32.3 g/dL 32.0 - 11/17 Normal [facility] 36.0 /2012 [facility] HEMATOLOGY MCV 75.9 fL 81.0 - 11/17 LOW [facility] 99.0 /2012 [facility] HEMATOLOGY RBC 3.67 M/CMM 4.20 - 11/17 LOW [facility] 5.40 /2012 [facility] HEMATOLOGY WBC 8.4 K/CMM 3.7 - 10.4 11/17 Normal [facility] HEMATOLOGY Hct 27.9 % 36.0 - 11/17 LOW [facility] 48.0 /2012 [facility] HEMATOLOGY Hgb 9.0 g/dL 12.0 - 11/17 LOW [facility] 16.0 /2012 [facility] CHEMISTRY Troponin-T null 0.000 - 11/17 Normal [facility] 0.100 /2012 [facility] CHEMISTRY Troponin-I null 0.00 - 11/17 Normal [facility] 0.40 [facility] CHEMISTRY Total CK 76 unit/L 12 - 191 11/17 Normal [facility] CHEMISTRY CK MB Index 0.8 0.0 - 2.5 11/17 Normal /2012 [facility] CHEMISTRY CK MB 0.6 ng/mL 0.5 - 3.6 11/17 Normal [facility] BEDSIDE Gluc POC 305 mg/dL 70 - 99 11/17 [place] 3Interpretive [facility] GLUCOSE Lifscn Data: [facility] Upper Reportable Limit: 200 mg/dL. BEDSIDE Comment1 Notify 11/17 NA [facility] GLUCOSE RN/ [facility] CHEMISTRY Magnesium Lvl 1.4 mg/dL 1.8 - 2.4 11/16 LOW [facility] CHEMISTRY Total CK 27 unit/L 12 - 191 11/16 Normal [facility] CHEMISTRY Troponin-T null 0.000 - 11/16 Normal [facility] 0.100 [facility] CHEMISTRY Troponin-I null 0.00 - 11/16 Normal [facility] 0.40 [facility] CHEMISTRY B/C Ratio 6 6 - 25 11/16 Normal [facility] CHEMISTRY A/G Ratio 1.0 0.7 - 1.6 11/16 Normal [facility] CHEMISTRY AGAP 18.6 meq/L 10.0 - 11/16 Normal [facility] 20.0 [facility] CHEMISTRY Globulin 3.5 g/dL 2.0 - 4.0 11/16 Normal [facility] CHEMISTRY eGFR 67 11/16 NA 5Result Comment: The eGFR is calculated using the CKD-EPI formula. In most young, healthy individuals the eGFR will be > 90 mL/min/1.73m2. The eGFR declines with age. An eGFR of 60-89 may be normal in [facility] mL/min/1.7 some populations, particularly the elderly, for whom the CKD-EPI formula has not been extensively validated. Use of the eGFR is not recommended in the following populations: [place] [address] Center Individuals with unstable creatinine concentrations, including [...] 3.4 g/dL 3.5 - 5.0 11/16 LOW [facility] CHEMISTRY Alk Phos 88 unit/L 39 - 136 11/16 Normal [facility] CHEMISTRY Glucose Lvl 256 mg/dL 70 - 99 11/16 [place] 7Interpretive Data: Adult reference range values reflect the clinical guidelines of the [place] [employer]. [facility] CHEMISTRY BUN 6 mg/dL 7 - 22 11/16 LOW [facility] CHEMISTRY Sodium Lvl 136 meq/L 135 - 145 11/16 Normal [facility] CHEMISTRY Chloride Lvl 99 meq/L 95 - 109 11/16 Normal [facility] CHEMISTRY Creatinine 1.0 mg/dL 0.5 - 1.4 11/16 Normal [facility] CHEMISTRY Potassium Lvl 3.6 meq/L 3.5 - 5.1 11/16 Normal [facility] CHEMISTRY CO2 22 meq/L 24 - 32 11/16 LOW [facility] CHEMISTRY Calcium Lvl 8.8 mg/dL 8.5 - 10.5 11/16 Normal [facility] CHEMISTRY Bili Total 0.6 mg/dL 0.2 - 1.3 11/16 Normal [facility] CHEMISTRY Total Protein 6.9 g/dL 6.4 - 8.4 11/16 Normal [facility] CHEMISTRY AST 52 unit/L 0 - 37 11/16 HI [facility] CHEMISTRY ALT 52 unit/L 0 - 65 11/16 Normal [facility] CHEMISTRY Phosphorus 1.6 mg/dL 2.5 - 4.5 11/16 LOW [facility] HEMATOLOGY Lymphocytes 16.8 % 20.0 - 11/16 LOW [facility] 40.0 [facility] HEMATOLOGY Segs 72.3 % 45.0 - 11/16 Normal [facility] 75.0 [facility] HEMATOLOGY Large Plt Slight None Seen 11/16 [facility] *ABN* Center (11/16/2012 13:17:00) HEMATOLOGY Elliptocyte Slight None Seen 11/16 [facility] *[facility]* Center (11/16/2012 13:17:00) HEMATOLOGY Polychrom Slight None Seen 11/16 Normal [facility] (11/16/2012 13:17:00) Center HEMATOLOGY Microcyte 1+ None Seen 11/16 [facility]* Center (11/16/2012 13:17:00) HEMATOLOGY Basophils # 0.1 K/CMM 0.0 - 0.2 11/16 Normal [facility] HEMATOLOGY Hypochrom Slight None Seen 11/16 Normal Medical (11/16/2012 13:17:00) [place] HEMATOLOGY Anisocyte 1+ None Seen 11/16 ABN Medical *ABN* Center (11/16/2012 13:17:00) HEMATOLOGY Schistocyte Occasional 11/16 NA [facility] HEMATOLOGY Monocytes 8.6 % 2.0 - 12.0 11/16 Normal [facility] HEMATOLOGY Eosinophils 1.5 % 0.0 - 4.0 11/16 Normal [facility] HEMATOLOGY Monocytes # 1.1 K/CMM 0.0 - 0.8 11/16 [facility] HEMATOLOGY Segs-Bands # 9.7 K/CMM 1.5 - 8.1 11/16 [facility] HEMATOLOGY Eosinophils # 0.2 K/CMM 0.0 - 0.5 11/16 Normal [facility] HEMATOLOGY Lymphocytes # 2.2 K/CMM 1.0 - 5.5 11/16 Normal [facility] HEMATOLOGY Basophils 0.8 % 0.0 - 1.0 11/16 Normal [facility] HEMATOLOGY Hgb 10.8 g/dL 12.0 - 11/16 LOW [facility] 16.0 [facility] HEMATOLOGY RBC 4.29 M/CMM 4.20 - 11/16 [facility] 5.40 /2012 [facility] HEMATOLOGY WBC 13.3 K/CMM 3.7 - 10.4 11/16 [facility] HEMATOLOGY RDW 18.0 % 11.5 - 11/16 [facility] 14.5 [facility] HEMATOLOGY Hct 32.4 % 36.0 - 11/16 [facility] 48.0 [facility] HEMATOLOGY MCHC 33.3 g/dL 32.0 - 03 Normal [facility] 36.0 [facility] HEMATOLOGY MCV 75.4 fL 81.0 - 11/16 [facility] 99.0 [facility] HEMATOLOGY MCH 25.1 pg 27.0 - 11/16 [facility] 31.0 [facility] HEMATOLOGY Platelet 230 K/CMM 133 - 450 11/16 Normal [facility] HEMATOLOGY MPV 9.9 fL 7.4 - 10.4 11/16 Normal [facility] BEDSIDE Comment1 Notify 11/14 NA [facility] GLUCOSE RN/MD /2012 [facility] BEDSIDE Gluc POC 266 mg/dL 70 - 99 11/14 [place] 2Interpretive [facility] GLUCOSE Lif[facility] Data: [facility] Upper Reportable Limit: 200 mg/dL. BEDSIDE Comment1 Notify 11/14 NA [facility] GLUCOSE MARTÍNEZ/ [facility] TESTING Center BEDSIDE Gluc POC 140 mg/dL 70 - 99 11/14 [place] 3Interpretive [facility] GLUCOSE Lif[facility] Data: [facility] Upper Reportable Limit: 200 mg/dL. BEDSIDE Comment1 Notify 11/14 NA [facility] GLUCOSE RN/ /2012 [facility] BEDSIDE Gluc POC 201 mg/dL 70 - 99 11/14 [place] 4Interpretive [facility] GLUCOSE [facility] Data: [facility] Upper Reportable Limit: 200 mg/dL. CHEMISTRY A/G Ratio 0.9 0.7 - 1.6 11/14 Normal [facility] CHEMISTRY AST 41 unit/L 0 - 37 11/14 HI [facility] CHEMISTRY eGFR 104 11/14 NA 6Result Comment: The eGFR is calculated using the CKD-EPI formula. In most young, healthy individuals the eGFR will be > 90 mL/min/1.73m2. The eGFR declines with age. An eGFR of 60-89 may be normal in [facility] mL/min/1.7 /2012 some populations, particularly the elderly, for whom the CKD-EPI formula has not been extensively validated. Use of the eGFR is not recommended in the following populations: [facility] Individuals with unstable creatinine concentrations, including [...] 2.9 g/dL 3.5 - 5.0 11/14 LOW [facility] CHEMISTRY Alk Phos 84 unit/L 39 - 136 11/14 Normal [facility] CHEMISTRY BUN 3 mg/dL 7 - 22 11/14 LOW [facility] CHEMISTRY Creatinine 0.7 mg/dL 0.5 - 1.4 11/14 Normal [facility] CHEMISTRY Sodium Lvl 136 meq/L 135 - 145 11/14 Normal [facility] CHEMISTRY Total Protein 6.3 g/dL 6.4 - 8.4 11/14 LOW [facility] CHEMISTRY ALT 51 unit/L 0 - 65 11/14 Normal [facility] CHEMISTRY Potassium Lvl 3.7 meq/L 3.5 - 5.1 11/14 Normal [facility] CHEMISTRY Chloride Lvl 101 meq/L 95 - 109 11/14 Normal [facility] CHEMISTRY Glucose Lvl 210 mg/dL 70 - 99 11/14 [place] 9Interpretive Data: Adult reference range values reflect the clinical guidelines of the [place] [employer]. Medical [facility] CHEMISTRY AGAP 15.7 meq/L 10.0 - 11/14 Normal [facility] 20.0 [facility] CHEMISTRY B/C Ratio 4 6 - 25 11/14 LOW [facility] CHEMISTRY Globulin 3.4 g/dL 2.0 - 4.0 11/14 Normal [facility] CHEMISTRY CO2 23 meq/L 24 - 32 11/14 LOW [facility] CHEMISTRY Bili Total 0.4 mg/dL 0.2 - 1.3 11/14 Normal [facility] CHEMISTRY Calcium Lvl 8.5 mg/dL 8.5 - 10.5 11/14 Normal [facility] CHEMISTRY Phosphorus 3.6 mg/dL 2.5 - 4.5 11/14 Normal [facility] CHEMISTRY Magnesium Lvl 1.5 mg/dL 1.8 - 2.4 11/14 LOW [facility] CHEMISTRY Ca Norm mgdL 3.52 mg/dL 4.65 - 11/14 LOW [facility] 5. [facility] CHEMISTRY Ca Ion mgdL 3.32 mg/dL 4.65 - 11/14 CRIT [facility] 5. [facility] Center CHEMISTRY Ca Ion 0.83 1.16 - 11/14 CRIT 15Result [place] mMol/L . Comment: [facility] Result(s) called to Arlin Rose at 11/14/2012 00:23:56 CDT_ by_tvs. Read back OK. CHEMISTRY Ca Norm 0.88 1.16 - 11/14 CRIT [place] mMol/L 1. Medical Center HEMATOLOGY Platelet 221 K/CMM 133 - 450 11/14 Normal MH [facility] HEMATOLOGY RDW 19.0 % 11.5 - 03 [facility] [place] 14.5 /2012 [facility] HEMATOLOGY MCHC 32.4 g/dL 32.0 - 11/14 Normal [place] 36.0 /2012 [facility] HEMATOLOGY MCV 75.5 fL 81.0 - 11/14 [facility] [place] 99.0 /2012 [facility] HEMATOLOGY Hct 35.5 % 36.0 - 11/14 LOW [place] 48.0 /2012 [facility] HEMATOLOGY Hgb 11.5 g/dL 12.0 - 11/14 [facility] [place] 16.0 /2012 [facility] HEMATOLOGY MCH 24.5 pg 27.0 - 11/14 [facility] [place] 31.0 /2012 [facility] HEMATOLOGY MPV 9.1 fL 7.4 - 10.4 11/14 Normal [facility] HEMATOLOGY RBC 4.70 M/CMM 4.20 - 11/14 Normal [place] 5.40 /2012 [facility] [facility] HEMATOLOGY WBC 8.6 K/CMM 3.7 - 10.4 11/14 Normal [facility] HEMATOLOGY Segs 53.3 % 45.0 - 11/14 [facility] [place] 75.0 /2012 [facility] HEMATOLOGY Microcyte 1+ None Seen 11/14 ABN Medical *ABN* Center (11/13/2012 23:45:00) HEMATOLOGY Basophils # 0.1 K/CMM 0.0 - 0.2 11/14 Normal [facility] HEMATOLOGY Eosinophils # 0.2 K/CMM 0.0 - 0.5 11/14 [facility] HEMATOLOGY Monocytes # 0.9 K/CMM 0.0 - 0.8 11/14 [facility] HEMATOLOGY Lymphocytes # 2.9 K/CMM 1.0 - 5.5 11/14 Normal [facility] HEMATOLOGY Monocytes 10.3 % 2.0 - 12.0 11/14 Normal [facility] HEMATOLOGY Lymphocytes 33.6 % 20.0 - 03 [facility] [place] 40.0 /2012 [facility] HEMATOLOGY Segs-Bands # 4.6 K/CMM 1.5 - 8.1 11/14 Normal [facility] HEMATOLOGY Basophils 0.7 % 0.0 - 1.0 11/14 Normal [facility] HEMATOLOGY Eosinophils 2.1 % 0.0 - 4.0 11/14 Normal [facility] CHEMISTRY Lipase Lvl 43 unit/L 73 - 393 11/13 LOW [facility] CHEMISTRY Amylase Lvl 14 unit/L 25 - 115 11/13 LOW [facility] CHEMISTRY A/G Ratio 0.8 0.7 - 1.6 11/13 Normal [facility] CHEMISTRY AST 56 unit/L 0 - 37 11/13 HI [facility] CHEMISTRY Alk Phos 67 unit/L 39 - 136 11/13 Normal [facility] CHEMISTRY Globulin 2.9 g/dL 2.0 - 4.0 11/13 Normal [facility]2012 [facility] CHEMISTRY Total Protein 5.3 g/dL 6.4 - 8.4 11/13 LOW [facility]2012 [facility] CHEMISTRY Albumin Lvl 2.4 g/dL 3.5 - 5.0 11/13 LOW [facility] CHEMISTRY ALT 41 unit/L 0 - 65 11/13 Normal 2012 [facility] CHEMISTRY Bili Indirect 0.3 mg/dL 0.0 - 1.0 11/13 Normal [facility] CHEMISTRY Bili Direct 0.1 mg/dL 0.0 - 0.3 11/13 Normal [facility]2012 [facility] CHEMISTRY Bili Total 0.4 mg/dL 0.2 - 1.3 11/13 Normal 2012 [facility] CHEMISTRY eGFR 137 11/13 NA 7Result Comment: The eGFR is calculated using the CKD-EPI formula. In most young, healthy individuals the eGFR will be > 90 mL/min/1.73m2. The eGFR declines with age. An eGFR of 60-89 may be normal in [facility] mL/min/1.7 /2013 some populations, particularly the elderly, for whom the CKD-EPI formula has not been extensively validated. Use of the eGFR is not recommended in the following populations: [place] [id number] Center Individuals with unstable creatinine concentrations, including [...] AGAP 17.3 meq/L 10.0 - 11/13 Normal [facility] 20.0 Medical Center CHEMISTRY Calcium Lvl 6.7 mg/dL 8.5 - 10.5 11/13 CRIT 13Result Comment: [facility] Critical [facility] Result(s) called to _hansel gustafson at _11/13/2012 06:59:47 CDT bylg. Read back OK. CHEMISTRY CO2 17 meq/L 24 - 32 11/13 LOW [facility] CHEMISTRY Chloride Lvl 111 meq/L 95 - 109 11/13 HI [facility] CHEMISTRY Potassium Lvl 3.3 meq/L 3.5 - 5.1 11/13 LOW 5Result Comment: Medical Specimen Center Slightly Hemolyzed. CHEMISTRY Sodium Lvl 142 meq/L 135 - 145 11/13 Normal [facility] Center CHEMISTRY Creatinine 0.3 mg/dL 0.5 - 1.4 11/13 LOW [facility] l [facility] Center CHEMISTRY BUN 3 mg/dL 7 - 22 11/13 LOW Medical [facility] CHEMISTRY Glucose Lvl 104 mg/dL 70 - 99 11/13 HI 10Interpretive Data: Adult reference range values reflect the clinical guidelines of the [place] [employer]. Medical Center CHEMISTRY Magnesium Lvl 1.3 mg/dL 1.8 - 2.4 11/13 LOW Medical Center CHEMISTRY Phosphorus 2.8 mg/dL 2.5 - 4.5 11/13 Normal [facility] Center CHEMISTRY Ca Ion 1.01 1.16 - 11/13 [facility] mMol/L 1.30 Medical Center CHEMISTRY Ca Norm 1.07 1.16 - 11/13 LOW [place] mMol/L 1.30 Medical Center CHEMISTRY Ca Norm mgdL 4.28 mg/dL 4.65 - 11/13 [facility] [place] 5.20 Medical Center CHEMISTRY Ca Ion mgdL 4.04 mg/dL 4.65 - 11/13 [facility] 5.20 Medical Center HEMATOLOGY MCV 78.6 fL 81.0 - 11/13 [facility] [place] 99.0 [facility] HEMATOLOGY MPV 9.1 fL 7.4 - 10.4 11/13 Normal [facility] HEMATOLOGY MCHC 31.1 g/dL 32.0 - 11/13 LOW [place] 36.0 Medical Center HEMATOLOGY MCH 24.4 pg 27.0 - 03 [facility] [place] 31.0 /2012 [facility] HEMATOLOGY Hct 29.4 % 36.0 - 11/13 [facility] 48.0 [facility] HEMATOLOGY RDW 19.1 % 11.5 - 03 [facility] 14.5 [facility] HEMATOLOGY Platelet 192 K/CMM 133 - 450 11/13 Normal [facility] HEMATOLOGY Hgb 9.1 g/dL 12.0 - 11/13 [facility] 16.0 [facility] HEMATOLOGY RBC 3.74 M/CMM 4.20 - 03 [facility] 5.40 /2012 [facility] HEMATOLOGY WBC 6.8 K/CMM 3.7 - 10.4 11/13 Normal [facility] HEMATOLOGY Plt Morph Normal 11/13 Normal [facility] (11/13/2012 05:00:00) Center HEMATOLOGY Atypical 0.0 % <=0.0 11/13 Normal [facility] Lymphs [facility] HEMATOLOGY RBC Morph Normal 11/13 Normal [facility] (11/13/2012 05:00:00) [facility] HEMATOLOGY Eosinophils 2.0 % 0.0 - 4.0 11/13 Normal [facility] HEMATOLOGY Bands 0.0 % 0.0 - 11.0 11/13 Normal [facility] HEMATOLOGY Segs 51.0 % 45.0 - 11/13 [facility] 75.0 [facility] HEMATOLOGY Eosinophils # 0.1 K/CMM 0.0 - 0.5 11/13 Normal [facility] HEMATOLOGY Segs-Bands # 3.5 K/CMM 1.5 - 8.1 11/13 Normal [facility] HEMATOLOGY Monocytes 5.0 % 2.0 - 12.0 11/13 Normal [facility] HEMATOLOGY Lymphocytes 42.0 % 20.0 - 03 [facility] [place] 40.0 [facility] HEMATOLOGY Monocytes # 0.3 K/CMM 0.0 - 0.8 11/13 Normal [facility] HEMATOLOGY Lymphocytes # 2.9 K/CMM 1.0 - 5.5 11/13 Normal [facility] INFECTIOUS C difficile Negative 1 Negative 11/13 Normal 1Interpretive Data: [employer] Clostridium difficile assay utilizes loop-mediated isothermal DNA amplification (LAMP) technology to detect a 204 bp region of the tcdA gene within the PaLoc gene [facility] segment present in all known toxigenic C. difficile strains. [facility] (11/12/2012 21:54:26) [facility] The assay utilizes FDA cleared IVD reagents. Performance characteristics have been verified by the Molecular Diagnostic Laboratory within the [facility]. The Molecular Diagnostic Laboratory is authorized under the Clinical Laboratory Improvement Amendment of 1988 (CLIA-88) to perform high complexity testing. CHEMISTRY Total CK 25 unit/L 12 - 191 11/12 Normal [facility] CHEMISTRY Troponin-I null 0.00 - 11/12 Normal [facility] 0.40 /2012 [facility] CHEMISTRY eGFR 88 11/12 NA 8Result Comment: The eGFR is calculated using the CKD-EPI formula. In most young, healthy individuals the eGFR will be > 90 mL/min/1.73m2. The eGFR declines with age. An eGFR of 60-89 may be normal in [facility] mL/min/1.7 some populations, particularly the elderly, for whom the CKD-EPI formula has not been extensively validated. Use of the eGFR is not recommended in the following populations: [address] Individuals with unstable creatinine concentrations, including [...] BMI. CHEMISTRY AGAP 13.7 meq/L 10.0 - 03 Normal [facility] 20.0 [facility] CHEMISTRY Calcium Lvl 8.5 mg/dL 8.5 - 10.5 11/12 Normal [facility] CHEMISTRY CO2 25 meq/L 24 - 32 11/12 Normal [facility] CHEMISTRY Potassium Lvl 3.7 meq/L 3.5 - 5.1 11/12 Normal [facility] CHEMISTRY Sodium Lvl 138 meq/L 135 - 145 11/12 Normal [facility] CHEMISTRY Chloride Lvl 103 meq/L 95 - 109 11/12 Normal [facility] CHEMISTRY Creatinine 0.8 mg/dL 0.5 - 1.4 11/12 Normal [facility] /2012 [facility] CHEMISTRY BUN 5 mg/dL 7 - 22 11/12 LOW [facility] CHEMISTRY Glucose Lvl 40 mg/dL 70 - 99 11/12 CRIT 12Interpretive Data: Adult reference range values reflect the clinical guidelines of the [place] [employer]. Medical Center CHEMISTRY Ca Norm mgdL 4.20 mg/dL 4.65 - 11/12 LOW [facility] 5. [facility] CHEMISTRY Ca Norm 1.05 1.16 - 11/12 LOW [place] mMol/L 1. [facility] CHEMISTRY Ca Ion mgdL 4.00 mg/dL 4.65 - 11/12 LOW [facility] 5. [facility] CHEMISTRY Ca Ion 1.00 1.16 - 11/12 [facility] mMol/L 1. [facility] CHEMISTRY Magnesium Lvl 1.9 mg/dL 1.8 - 2.4 11/12 Normal [facility] CHEMISTRY Phosphorus 3.2 mg/dL 2.5 - 4.5 11/12 Normal [facility] HEMATOLOGY MCHC 32.0 g/dL 32.0 - 11/12 Normal [facility] 36.0 [facility] HEMATOLOGY MCH 24.1 pg 27.0 - 11/12 LOW [facility] 31.0 /2012 [facility] HEMATOLOGY MCV 75.3 fL 81.0 - 11/12 [facility] 99.0 /2012 [facility] HEMATOLOGY WBC 9.2 K/CMM 3.7 - 10.4 11/12 Normal [facility] HEMATOLOGY Platelet 233 K/CMM 133 - 450 11/12 Normal [facility] HEMATOLOGY MPV 9.1 fL 7.4 - 10.4 11/12 Normal [facility] HEMATOLOGY RDW 19.0 % 11.5 - 03 HI [facility] 14.5 /2012 [facility] HEMATOLOGY RBC 4.19 M/CMM 4.20 - 03 [facility] 5.40 [facility] HEMATOLOGY Hgb 10.1 g/dL 12.0 - 03 [facility] 16.0 [facility] HEMATOLOGY Hct 31.6 % 36.0 - 03 [facility] 48.0 /2012 [facility] HEMATOLOGY Hypochrom Slight None Seen 11/12 Normal Medical (11/12/2012 00:19:00) Center HEMATOLOGY Large Plt Slight None Seen 11/12 [facility] Medical *ABN* [facility] (11/12/2012 00:19:00) HEMATOLOGY Atypical 0.0 % <=0.0 11/12 Normal [facility] Lymphs [facility] HEMATOLOGY Basophils 1.0 % 0.0 - 1.0 11/12 Normal [facility] HEMATOLOGY Lymphocytes 39.0 % 20.0 - 11/12 Normal [place] 40.0 [facility] HEMATOLOGY Bands 0.0 % 0.0 - 11.0 11/12 Normal [facility]2012 [facility] HEMATOLOGY Eosinophils 2.0 % 0.0 - 4.0 11/12 Normal [facility] HEMATOLOGY Monocytes 6.0 % 2.0 - 12.0 11/12 Normal [facility] HEMATOLOGY Segs 52.0 % 45.0 - 11/12 [facility] 75.0 [facility] HEMATOLOGY Basophils # 0.1 K/CMM 0.0 - 0.2 11/12 [facility]2012 [facility] HEMATOLOGY Monocytes # 0.6 K/CMM 0.0 - 0.8 11/12 Normal [facility] HEMATOLOGY Lymphocytes # 3.6 K/CMM 1.0 - 5.5 11/12 Normal [facility] HEMATOLOGY Segs-Bands # 4.8 K/CMM 1.5 - 8.1 11/12 Normal [facility] HEMATOLOGY Eosinophils # 0.2 K/CMM 0.0 - 0.5 11/12 [facility] HEMATOLOGY Microcyte 1+ None Seen 11/11 [facility] (11/11/2012 03:41:00) HEMATOLOGY Basophils # 0.1 K/CMM 0.0 - 0.2 11/11 [facility] HEMATOLOGY Basophils 0.7 % 0.0 - 1.0 11/11 [facility] HEMATOLOGY Microcyte 1+ None Seen 11/09 [facility] (11/09/2012 05:12:00) URINALYSIS UA pH 5.0 5.0 - 8.0 11/08 [facility] 2012 [facility] URINALYSIS UA Protein 20 mg/dL Negative 11/08 [facility]* [facility] (11/07/2012 20:54:00) URINALYSIS UA Turbidity Slight Clear 11/08 [facility] /2013 [facility] *ABN* Center (11/07/2012 20:54:00) URINALYSIS UA Spec Grav 1.010 <=1.030 11/08 Normal [facility] URINALYSIS UA Color Yellow Yellow 11/08 [facility] *NA* Center (11/07/2012 20:54:00) URINALYSIS UA Bacteria Moderate /HPF None Seen 11/08 [facility] *[facility]* [facility] (11/07/2012 20:54:00) URINALYSIS UA Mucus Few /LPF None Seen 11/08 [facility] *NA* [facility] (11/07/2012 20:54:00) URINALYSIS UA WBC null 0 - 5 11/08 [facility] URINALYSIS UA RBC 4 /HPF 0 - 2 11/08 [facility] URINALYSIS UA Sq Epi Moderate /LPF Few 11/08 [facility] *ABN* [facility] (11/07/2012 20:54:00) URINALYSIS UA Leuk Est Large Negative 11/08 [facility] *ABN* Center (11/07/2012 20:54:00) URINALYSIS UA Blood Trace Negative 11/08 [facility] (11/07/2012 20:54:00) URINALYSIS UA Nitrite Negative Negative 11/08 Normal [facility] (11/07/2012 20:54:00) Center URINALYSIS UA Ketones 40 mg/dL Negative 11/08 [facility] *ABN* [facility] (11/07/2012 20:54:00) URINALYSIS UA Bili Negative Negative 11/08 [facility] *NA* Center (11/07/2012 20:54:00) URINALYSIS Micro? Performed 11/08 [facility] (11/07/2012 20:54:00) URINALYSIS UA <=1.0 0.1 - 1.0 11/08 [facility] Urobilinogen mg/dL Medical
*NA*< Center br/>(11/07 20:54:00) <sup> </sup> URINALYSIS UA Glucose >=1000mg/d 11/08 [facility] URINALYSIS UA Hyal Cast 37 /LPF 0 - 2 11/08 HI [facility] URINALYSIS UA Ketones 40 mg/dL Negative 11/07 ABN [facility] *ABN* Center (11/07/2012 06:24:57) CHEMISTRY Hgb A1C 8.2 % 11/07 NA 14Interpretive Data: HbA1C% eAG( mg/dL) Interpretation 6.0 126 Very good control [facility] 6.5 140 Very good control [facility] 7.0 154 Good Control 7.5 169 Good Control 8.0 183 Marginal Control, take action to lower 8.5 197 Marginal Control, take action to lower 9.0 212 Poor Control, take action to lower 9.5 226 Poor Control, take action to lower 10.0 240 Poor Control, take action to lower CHEMISTRY Ketone 2.20 <=0.27 11/06 [facility] Quantitative mmol/L [facility] CHEMISTRY U Osmolality 207 300 - 800 11/06 LOW [facility] mOsm/kg [facility] CHEMISTRY POC A %FIO2 21.0 % 18.0 - 11/06 Normal [facility] 100.0 [facility] CHEMISTRY POC A LA 0.9 mMol/L 0.5 - 2.2 11/06 Normal [facility] CHEMISTRY POC A Glu 281 mg/dL 70 - 99 11/06 [facility] CHEMISTRY POC A Temp 37.0 Abby 11/06 NA [facility] CHEMISTRY POC A Source ART 11/06 NA [facility] CHEMISTRY POC A pH 7.45 7.35 - 11/06 Normal [facility] 7.45 [facility] CHEMISTRY POC A HCO3 24 mMol/L 22 - 26 11/06 Normal [facility] CHEMISTRY POC A PCO2 35 mm[Hg] 35 - 45 11/06 Normal [facility] CHEMISTRY POC A PO2 85 mm[Hg] 80 - 100 11/06 Normal [facility] CHEMISTRY POC A BE 0 mMol/L -2-2 - 2 11/06 Normal [facility] CHEMISTRY POC A O2 Sat 97.0 % 95.0 - 11/06 Normal [facility] 100.0 [facility] CHEMISTRY POC A Na 123 meq/L 135 - 145 11/06 LOW [facility] CHEMISTRY POC A Hct 31.0 % 36.0 - 11/06 LOW [facility] 48.0 /2012 [facility] CHEMISTRY POC A Ca Ion 1.11 1.16 - 11/06 LOW [facility] mMol/L 1.30 [facility] CHEMISTRY POC A K 3.7 meq/L 3.5 - 5.1 11/06 Normal [facility] CHEMISTRY POC A BE -4 mMol/L -2-2 - 2 11/06 LOW [facility] CHEMISTRY POC A HCO3 20 mMol/L 22 - 26 11/06 LOW [facility] CHEMISTRY POC A Source ART 11/06 NA [facility] CHEMISTRY POC A Temp 37.0 Abby 11/06 NA [facility] CHEMISTRY POC A pH 7.42 7.35 - 11/06 Normal [facility] 7.45 /2012 [facility] CHEMISTRY POC A PO2 81 mm[Hg] 80 - 100 11/06 Normal [facility] CHEMISTRY POC A O2 Sat 96.0 % 95.0 - 11/06 Normal [facility] 100.0 [facility] CHEMISTRY POC A PCO2 31 mm[Hg] 35 - 45 11/06 LOW [facility] CHEMISTRY POC A %FIO2 21.0 % 18.0 - 11/06 Normal [facility] 100.0 [facility] Microbiolog Culture: 11/06 [facility] y Urine [facility] CHEMISTRY Troponin-I null 0.00 - 11/06 Normal [facility] 0.40 /2012 [facility] CHEMISTRY Troponin-T null 0.000 - 11/06 Normal [facility] 0.100 /2012 [facility] CHEMISTRY Total CK 48 unit/L 12 - 191 11/06 Normal [facility] URINALYSIS UA <=1.0 0.1 - 1.0 11/06 [facility] Urobilinogen mg/dL /2012 Medical
*NA*< Center br/>(11/06 03:15:40) <sup> </sup> URINALYSIS UA Leuk Est Large Negative 11/06 [facility] *[facility]* [facility] (11/06/2012 03:15:40) URINALYSIS UA Sq Epi Moderate /LPF Few 11/06 [facility] *[facility]* [facility] (11/06/2012 03:15:40) URINALYSIS UA Mucus Few /LPF None Seen 11/06 [facility] Medical *NA* Center (11/06/2012 03:15:40) URINALYSIS UA Nitrite Negative Negative 11/06 Normal [facility] (11/06/2012 03:15:40) Center URINALYSIS UA Bacteria Occasional /HPF None Seen 11/06 NA [facility] *NA* Center (11/06/2012 03:15:40) URINALYSIS UA WBC 67 /HPF 0 - 5 11/06 [facility] URINALYSIS UA Blood Negative Negative 11/06 Normal [facility] (11/06/2012 03:15:40) Center URINALYSIS UA Bili Negative Negative 11/06 NA [facility] *NA* [facility] (11/06/2012 03:15:40) URINALYSIS UA Ketones 60 mg/dL Negative 11/06 [facility] *ABN* [facility] (11/06/2012 03:15:40) URINALYSIS UA pH 5.0 5.0 - 8.0 11/06 Normal [facility] URINALYSIS UA Glucose >=1000 mg/dL Negative 11/06 [facility] *ABN* Center (11/06/2012 03:15:40) URINALYSIS UA Spec Grav 1.014 <=1.030 11/06 Normal [facility] URINALYSIS UA Protein Negative mg/dL Negative 11/06 Normal [facility] (11/06/2012 03:15:40) Center URINALYSIS UA Turbidity Slight Clear 11/06 [facility] *ABN* [facility] (11/06/2012 03:15:40) URINALYSIS UA Color Yellow Yellow 11/06 NA [facility] *NA* Center (11/06/2012 03:15:40) CHEMISTRY Troponin-I 0.02 ng/mL 0.00 - 03 Normal [facility] 0.40 [facility] CHEMISTRY Total CK 30 unit/L 12 - 191 11/06 Normal [facility] CHEMISTRY Troponin-T null 0.000 - 11/06 Normal [facility] 0.100 [facility] CHEMISTRY Ketone 3.00 <=0.27 11/06 HI [facility] Quantitative mmol/L /2012 [facility] CHEMISTRY Lipase Lvl 89 unit/L 73 - 393 11/06 Normal [facility] CHEMISTRY Globulin 4.3 g/dL 2.0 - 4.0 11/06 HI [facility] CHEMISTRY A/G Ratio 0.9 0.7 - 1.6 11/06 Normal [facility] CHEMISTRY B/C Ratio 7 6 - 25 11/06 Normal [facility] CHEMISTRY Albumin Lvl 3.7 g/dL 3.5 - 5.0 11/06 Normal [facility] CHEMISTRY Total Protein 8.0 g/dL 6.4 - 8.4 11/06 Normal [facility] CHEMISTRY ALT 62 unit/L 0 - 65 11/06 Normal [facility] CHEMISTRY Alk Phos 119 unit/L 39 - 136 11/06 Normal [facility]2012 [facility] CHEMISTRY Bili Total 0.5 mg/dL 0.2 - 1.3 11/06 Normal [facility] CHEMISTRY AST 44 unit/L 0 - 37 11/06 HI [facility] HEMATOLOGY Polychrom Slight None Seen 11/06 Normal [facility] (11/05/2012 20:40:00) [facility] HEMATOLOGY Hypochrom Slight None Seen 11/06 Normal [facility] (11/05/2012 20:40:00) [facility] HEMATOLOGY Bands 1.0 % 0.0 - 11.0 11/06 Normal [facility] HEMATOLOGY Anisocyte 1+ None Seen 11/06 [facility] *ABN* [facility] (11/05/2012 20:40:00) HEMATOLOGY Atypical 0.0 % <=0.0 11/06 Normal [facility] Lymph [facility] HEMATOLOGY Macrocyte 1+ None Seen 11/06 [facility] *ABN* [facility] (11/05/2012 20:40:00) HEMATOLOGY Plt Morph Normal 11/06 Normal [facility] (11/05/2012 20:40:00) Center HEMATOLOGY INR 0.98 0.85 - 11/06 Normal 16Interpretive Data: RECOMMENDED RANGES FOR PROTIME INR: [facility] 1. 2.0-3.0 for most medical and surgical thromboembolic states. Medical 2.5-3.5 for artificial heart valves and recurrent embolism. Center INR SHOULD BE USED ONLY FOR PATIENTS ON STABLE ANTICOAGULANT THERAPY. HEMATOLOGY PT 13.2 s 12.0 - 11/06 Normal [facility] 14.7 Medical Center HEMATOLOGY PTT 26.4 s 22.9 - 11/06 Normal 17Interpretiv [place] 35.8 /2012 e Data: Medical Heparin Center Therapeutic Range: 57 - 92 Seconds BEDSIDE Gluc POC null 11/01 CRIT 3Interpretive [facility] GLUCOSE Data: Medical TESTING Center Upper Reportable Limit: 200 mg/dL. BEDSIDE Comment1 Notify 11/01 NA [facility] GLUCOSE MARTÍNEZ/ Medical TESTING Center BEDSIDE Gluc POC 237 mg/dL 10/31 HI 4Interpretive [facility] GLUCOSE Data: Medical TESTING Center Upper Reportable Limit: 200 mg/dL. BEDSIDE Gluc POC 357 mg/dL 10/31 HI 5Interpretive [facility] GLUCOSE Data: Medical TESTING Center Upper Reportable Limit: 200 mg/dL. BEDSIDE Comment1 Notify 10/31 NA [facility] GLUCOSE MARTÍNEZ/ Medical TESTING Center CHEMISTRY Phosphorus 4.2 mg/dL 2.5 - 4.5 10/31 Normal [facility] CHEMISTRY Ca Norm mgdL 4.64 mg/dL 4.65 - 10/31 LOW [place] 5. [facility] Center CHEMISTRY Ca Ion mgdL 4.44 mg/dL 4.65 - 10/31 LOW [place] 5. [facility] CHEMISTRY Ca Norm 1.16 1.16 - 10/31 Normal [place] mMol/L 1. [facility] CHEMISTRY Ca Ion 1.11 1.16 - 10/31 LOW [place] mMol/L 1. [facility] CHEMISTRY AGAP 16.9 meq/L 10.0 - 10/31 Normal [place] 20.0 [facility] CHEMISTRY eGFR 67 10/31 NA 7Result Comment: The eGFR is calculated using the CKD-EPI formula. In most young, healthy individuals the eGFR will be > 90 mL/min/1.73m2. The eGFR declines with age. An eGFR of 60-89 may be normal in [facility] mL/min/1.7 some populations, particularly the elderly, for whom the CKD-EPI formula has not been extensively validated. Use of the eGFR is not recommended in the following populations: [facility] Individuals with unstable creatinine concentrations, including [...] 1.0 mg/dL 0.5 - 1.4 10/31 Normal [facility] Lvl [facility] CHEMISTRY Sodium Lvl 133 meq/L 135 - 145 10/31 [facility] CHEMISTRY Calcium Lvl 8.3 mg/dL 8.5 - 10.5 10/31 [facility] CHEMISTRY Potassium Lvl 3.9 meq/L 3.5 - 5.1 10/31 Normal [facility] CHEMISTRY Chloride Lvl 94 meq/L 95 - 109 10/31 [facility] CHEMISTRY CO2 26 meq/L 24 - 32 10/31 [facility] CHEMISTRY BUN 8 mg/dL 7 - 22 10/31 Normal [facility] CHEMISTRY Glucose Lvl 75 mg/dL 70 - 99 10/31 Normal 10Interpretive Data: Adult reference range values reflect the clinical guidelines of the [place] [employer]. [facility] CHEMISTRY Magnesium Lvl 1.9 mg/dL 1.8 - 2.4 10/31 Normal [facility] HEMATOLOGY MPV 9.4 fL 7.4 - 10.4 10/31 Normal [facility] HEMATOLOGY Hgb 9.7 g/dL 12.0 - 10/31 [facility] 16.0 [facility] HEMATOLOGY RBC 4.06 M/CMM 4.20 - 10/31 [facility] 5.40 [facility] HEMATOLOGY MCV 74.3 fL 81.0 - 10/31 [facility] 99.0 [facility] HEMATOLOGY Hct 30.2 % 36.0 - 10/31 [facility] [place] 48.0 [facility] HEMATOLOGY MCHC 32.2 g/dL 32.0 - 10/31 [facility] 36.0 [facility] HEMATOLOGY MCH 23.9 pg 27.0 - 10/31 [facility] 31.0 [facility] HEMATOLOGY Platelet 199 K/CMM 133 - 450 10/31 [facility] HEMATOLOGY RDW 17.5 % 11.5 - 10/31 [facility] [place] 14.5 [facility] HEMATOLOGY WBC 9.4 K/CMM 3.7 - 10.4 10/31 [facility] HEMATOLOGY Lymphocytes # 2.7 K/CMM 1.0 - 5.5 10/31 Normal [facility] HEMATOLOGY Basophils 0.6 % 0.0 - 1.0 10/31 Normal [facility] HEMATOLOGY Segs-Bands # 5.2 K/CMM 1.5 - 8.1 10/31 Normal [facility] HEMATOLOGY Microcyte 1+ None Seen 10/31 [facility]N [facility] *ABN* Center (10/31/2012 04:00:00) HEMATOLOGY Monocytes # 1.1 K/CMM 0.0 - 0.8 10/31 HI [facility] HEMATOLOGY Eosinophils # 0.3 K/CMM 0.0 - 0.5 10/31 [facility]2012 [facility] HEMATOLOGY Basophils # 0.1 K/CMM 0.0 - 0.2 10/31 [facility] HEMATOLOGY Segs 55.2 % 45.0 - 10/31 [facility] 75.0 [facility] HEMATOLOGY Monocytes 11.8 % 2.0 - 12.0 10/31 Normal [facility] HEMATOLOGY Lymphocytes 28.9 % 20.0 - 10/31 Normal [facility] 40.0 [facility] HEMATOLOGY Eosinophils 3.5 % 0.0 - 4.0 10/31 [facility] BEDSIDE Comment1 Notify 10/31 NA [facility] GLUCOSE RN/MD /2012 [facility] CHEMISTRY Ca Norm mgdL 4.92 mg/dL 4.65 - 10/30 Normal [facility] 5. [facility] CHEMISTRY Ca Ion mgdL 4.76 mg/dL 4.65 - 10/30 Normal [facility] 5. [facility] CHEMISTRY Ca Norm 1.23 1.16 - 10/30 Normal [place] mMol/L 1. [facility] CHEMISTRY Ca Ion 1.19 1.16 - 10/30 Normal [place] mMol/L . [facility] CHEMISTRY Phosphorus 3.8 mg/dL 2.5 - 4.5 10/30 Normal [facility] CHEMISTRY Magnesium Lvl 1.9 mg/dL 1.8 - 2.4 10/30 Normal [facility]2012 [facility] CHEMISTRY eGFR 88 10/30 NA 8Result Comment: The eGFR is calculated using the CKD-EPI formula. In most young, healthy individuals the eGFR will be > 90 mL/min/1.73m2. The eGFR declines with age. An eGFR of 60-89 may be normal in [facility] mL/min/1.7 some populations, particularly the elderly, for whom the CKD-EPI formula has not been extensively validated. Use of the eGFR is not recommended in the following populations: Medical [facility] Individuals with unstable creatinine concentrations, including [...] reflect the clinical guidelines of the [place] [employer]. [facility] CHEMISTRY Creatinine 0.8 mg/dL 0.5 - 1.4 10/30 Normal [facility] Lvl [facility] CHEMISTRY BUN 6 mg/dL 7 - 10/30 LOW [facility] CHEMISTRY Sodium Lvl 132 meq/L 135 - 145 10/30 [facility] CHEMISTRY Calcium Lvl 8.5 mg/dL 8.5 - 10.5 10/30 Normal [facility] CHEMISTRY CO2 29 meq/L 24 - 32 10/30 Normal [facility] CHEMISTRY Chloride Lvl 92 meq/L 95 - 109 10/30 LOW [facility] CHEMISTRY Potassium Lvl 3.8 meq/L 3.5 - 5.1 10/30 Normal [facility] CHEMISTRY AGAP 14.8 meq/L 10.0 - 10/30 Normal [facility] 20.0 [facility] HEMATOLOGY Platelet 245 K/CMM 133 - 450 10/30 Normal [facility] HEMATOLOGY MPV 9.4 fL 7.4 - 10.4 10/30 Normal [facility] HEMATOLOGY Hct 33.1 % 36.0 - 10/30 LOW [facility] 48.0 [facility] HEMATOLOGY RBC 4.47 M/CMM 4.20 - 10/30 Normal [facility] 5.40 /2012 [facility] HEMATOLOGY WBC 11.0 K/CMM 3.7 - 10.4 10/30 HI [facility] HEMATOLOGY Hgb 10.6 g/dL 12.0 - 10/30 LOW [place] 16.0 /2012 [facility] HEMATOLOGY MCHC 31.9 g/dL 32.0 - 10/30 [facility] 36.0 /2012 [facility] HEMATOLOGY MCV 74.1 fL 81.0 - 10/30 [facility] [place] 99.0 /2012 [facility] HEMATOLOGY MCH 23.7 pg 27.0 - 10/30 LOW [facility] 31.0 /2012 [facility] HEMATOLOGY RDW 16.9 % 11.5 - 10/30 [facility] 14.5 /2012 [facility] HEMATOLOGY PTT 28.1 s 22.9 - 10/30 Normal 25Interpretiv [facility] 35.8 /2012 e Data: [facility] Therapeutic Range: 57 - 92 Seconds HEMATOLOGY PT 13.7 s 12.0 - 10/30 Normal [facility] 14.7 /2012 [facility] HEMATOLOGY INR 1.03 0.85 - 10/30 Normal 22Interpretive Data: RECOMMENDED RANGES FOR PROTIME INR: [facility] 1. 2.0-3.0 for most medical and surgical thromboembolic states. [facility] 2.5-3.5 for artificial heart valves and recurrent embolism. Center INR SHOULD BE USED ONLY FOR PATIENTS ON STABLE ANTICOAGULANT THERAPY. HEMATOLOGY Segs-Bands # 7.5 K/CMM 1.5 - 8.1 10/30 Normal [facility] HEMATOLOGY Basophils 0.4 % 0.0 - 1.0 10/30 Normal [facility] HEMATOLOGY Monocytes # 1.1 K/CMM 0.0 - 0.8 10/30 [facility] HEMATOLOGY Lymphocytes # 2.1 K/CMM 1.0 - 5.5 10/30 Normal [facility] HEMATOLOGY Microcyte 1+ None Seen 10/30 [facility]N [facility] *ABN* Center (10/30/2012 00:20:00) HEMATOLOGY Eosinophils # 0.2 K/CMM 0.0 - 0.5 10/30 Normal [facility] HEMATOLOGY Segs 68.3 % 45.0 - 10/30 Normal [facility] 75.0 /2012 [facility] HEMATOLOGY Lymphocytes 18.9 % 20.0 - 10/30 LOW [facility] 40.0 /2012 [facility] HEMATOLOGY Monocytes 10.3 % 2.0 - 12.0 10/30 Normal [facility] HEMATOLOGY Eosinophils 2.1 % 0.0 - 4.0 10/30 Normal [facility] CHEMISTRY Magnesium Lvl 2.1 mg/dL 1.8 - 2.4 10/29 Normal [facility] CHEMISTRY Phosphorus 4.1 mg/dL 2.5 - 4.5 10/29 Normal [facility] CHEMISTRY Ca Ion mgdL 3.96 mg/dL 4.10/29 LOW [facility] . [facility] CHEMISTRY Ca Norm 1.01 1. - 10/29 LOW [place] mMol/L 1. [facility] CHEMISTRY Ca Ion 0.99 1.16 - 10/29 LOW [facility] mMol/L . [facility] CHEMISTRY Ca Norm mgdL 4.04 mg/dL 4. - 10/29 LOW [facility] 01.23 [facility] CHEMISTRY eGFR 104 10/29 NA 9Result Comment: The eGFR is calculated using the CKD-EPI formula. In most young, healthy individuals the eGFR will be > 90 mL/min/1.73m2. The eGFR declines with age. An eGFR of 60-89 may be normal in [facility] mL/min/1. some populations, particularly the elderly, for whom the CKD-EPI formula has not been extensively validated. Use of the eGFR is not recommended in the following populations: [address] Individuals with unstable creatinine concentrations, including [...] 0.7 mg/dL 0.5 - 1.4 10/29 Normal [facility] CHEMISTRY BUN 3 mg/dL 7 - 22 10/29 LOW [facility] CHEMISTRY Calcium Lvl 8.9 mg/dL 8.5 - 10.5 10/29 Normal [facility] CHEMISTRY Glucose Lvl 90 mg/dL 70 - 99 10/29 Normal 12Interpretive Data: Adult reference range values reflect the clinical guidelines of the [place] [employer]. [facility] CHEMISTRY Chloride Lvl 99 meq/L 95 - 109 10/29 Normal [facility] CHEMISTRY Potassium Lvl 4.4 meq/L 3.5 - 5.1 10/29 Normal [facility] CHEMISTRY CO2 27 meq/L 24 - 32 10/29 Normal [facility] CHEMISTRY Sodium Lvl 139 meq/L 135 - 145 10/29 Normal [facility] CHEMISTRY AGAP 17.4 meq/L 10.0 - 10/29 Normal [facility] 20.0 [facility] HEMATOLOGY PTT 23.7 s 22.9 - 10/29 Normal 26Interpretiv [facility] 35.8 /2012 e Data: [facility] Therapeutic Range: 57 - 92 Seconds HEMATOLOGY PT 13.4 s 12.0 - 10/29 Normal [facility] 14.7 [facility] HEMATOLOGY INR 1.00 0.85 - 10/29 Normal Interpretive Data: RECOMMENDED RANGES FOR PROTIME INR: [facility] . 2.0-3.0 for most medical and surgical thromboembolic states. Medical 2.5-3.5 for artificial heart valves and recurrent embolism. Center INR SHOULD BE USED ONLY FOR PATIENTS ON STABLE ANTICOAGULANT THERAPY. HEMATOLOGY RDW 17.1 % 11.5 - 10/29 HI [facility] 14.5 /2012 [facility] HEMATOLOGY MCH 23.8 pg 27.0 - 10/29 LOW [facility] 31.0 /2012 [facility] HEMATOLOGY MCHC 32.2 g/dL 32.0 - 10/29 Normal [facility] 36.0 /2012 [facility] HEMATOLOGY Hct 33.6 % 36.0 - 10/29 LOW [facility] 48.0 /2012 [facility] HEMATOLOGY MCV 74.0 fL 81.0 - 10/29 LOW [facility] 99.0 /2012 [facility] HEMATOLOGY Platelet 233 K/CMM 133 - 450 10/29 Normal [facility] HEMATOLOGY MPV 9.9 fL 7.4 - 10.4 10/29 Normal [facility] HEMATOLOGY RBC 4.54 M/CMM 4.20 - 10/29 Normal [facility] 5.40 /2012 [facility] HEMATOLOGY Hgb 10.8 g/dL 12.0 - 10/29 LOW [facility] 16.0 /2012 [facility] HEMATOLOGY WBC 9.7 K/CMM 3.7 - 10.4 10/29 Normal [facility] HEMATOLOGY Lymphocytes # 2.6 K/CMM 1.0 - 5.5 10/29 Normal [facility] HEMATOLOGY Basophils 0.7 % 0.0 - 1.0 10/29 Normal [facility] HEMATOLOGY Segs-Bands # 6.0 K/CMM 1.5 - 8.1 10/29 Normal [facility]2012 [facility] HEMATOLOGY Monocytes # 0.7 K/CMM 0.0 - 0.8 10/29 Normal [facility]2012 [facility] HEMATOLOGY Eosinophils # 0.3 K/CMM 0.0 - 0.5 10/29 Normal [facility] HEMATOLOGY Basophils # 0.1 K/CMM 0.0 - 0.2 10/29 Normal [facility] HEMATOLOGY Microcyte 1+ None Seen 10/29 [facility] *ABN* Center (10/29/2012 00:56:00) HEMATOLOGY Segs 61.5 % 45.0 - 10/29 Normal [facility] 75.0 [facility] HEMATOLOGY Lymphocytes 26.8 % 20.0 - 10/29 [facility] 40.0 [facility] HEMATOLOGY Monocytes 7.6 % 2.0 - 12.0 10/29 Normal [facility] HEMATOLOGY Eosinophils 3.4 % 0.0 - 4.0 10/29 Normal [facility] CHEMISTRY Amylase Lvl 27 unit/L 25 - 115 10/28 Normal [facility]2012 [facility] CHEMISTRY Lipase Lvl 58 unit/L 73 - 393 10/28 LOW [facility]2012 [facility] CHEMISTRY Bili Indirect 0.2 mg/dL 0.0 - 1.0 10/28 Normal [facility] CHEMISTRY Globulin 3.4 g/dL 2.0 - 4.0 10/28 Normal [facility] CHEMISTRY A/G Ratio 0.8 0.7 - 1.6 10/28 Normal [facility] CHEMISTRY AST 24 unit/L 0 - 37 10/28 Normal [facility]2012 [facility] CHEMISTRY Bili Total 0.3 mg/dL 0.2 - 1.3 10/[address] CHEMISTRY Total Protein 6.2 g/dL 6.4 - 8.4 10/[address] CHEMISTRY ALT 23 unit/L 0 - 65 10/28 Normal [facility]2012 [facility] CHEMISTRY Albumin Lvl 2.8 g/dL 3.5 - 5.0 10/28 [facility]2012 [facility] CHEMISTRY Alk Phos 85 unit/L 39 - 136 10/28 Normal [facility] CHEMISTRY Bili Direct 0.1 mg/dL 0.0 - 0.3 10/28 Normal [facility] HEMATOLOGY PTT 23.9 s 22.9 - 10/28 Normal 27Interpretiv [facility] 35.8 /2012 e Data: [facility] Therapeutic Range: 57 - 92 Seconds HEMATOLOGY PT 13.5 s 12.0 - 10/28 Normal [facility] 14.7 /2012 [facility] HEMATOLOGY INR 1.01 0.85 - 10/28 Normal 24Interpretive Data: RECOMMENDED RANGES FOR PROTIME INR: [facility] 1. 2.0-3.0 for most medical and surgical thromboembolic states. Medical 2.5-3.5 for artificial heart valves and recurrent embolism. Center INR SHOULD BE USED ONLY FOR PATIENTS ON STABLE ANTICOAGULANT THERAPY. VIRAL - Influ B Negative 6 Negative 10/28 Normal 6Interpretive [facility] Data: Due Medical (10/27/2012 18:02:02) to [...] - Influ A Negative Negative 10/28 Normal [facility] Medical (10/27/2012 18:02:02) Center CHEMISTRY Vitamin D, 16 ng/mL 30 - 100 10/25 LOW 13Interpretive Data: Reference range is based on recommendations in the Endocrine [facility] 25-OH, Total /2013 Society Clinical Practice Guideline (J Clin Endocrinol Metab Medical 2011;96:7335-4327) Center CHEMISTRY Hgb A1C 8.4 % 10/25 NA 21Interpretive Data: HbA1C% eAG( mg/dL) Interpretation 6.0 126 Very good control [facility] 6.5 140 Very good control [place] 7.0 154 Good Control 7.5 169 Good Control 8.0 183 Marginal Control, take action to lower 8.5 197 Marginal Control, take action to lower 9.0 212 Poor Control, take action to lower 9.5 226 Poor Control, take action to lower 10.0 240 Poor Control, take action to lower CHEMISTRY LDL 87 mg/dL 0 - 129 10/25 Normal [facility] CHEMISTRY HDL 35 mg/dL >=35 10/25 Normal [facility] CHEMISTRY Trig 101 mg/dL 0 - 200 10/25 Normal [facility] CHEMISTRY Chol 142 mg/dL 120 - 200 10/25 Normal [facility] CHEMISTRY CHD Risk 4.06 3.90 - 10/25 Normal [facility] 5.80 /2012 [facility] CHEMISTRY Troponin-I 5.43 ng/mL 0.00 - 10/25 CRIT 18Result [facility] 0.40 /2012 Comment: [facility] Result(s) called to Jelani Rasmussen at 10/25/2012 00:47:48 [employer]PENSING SUPERVISOR by RM. Read back OK. CHEMISTRY Troponin-T 0.693 0.000 - 10/25 CRIT 15Result [facility] ng/mL 0.100 Comment: [facility] Critical [facility] Result(s) called to daisy otoole at 10/25/2012 01:18:09 [employer]ING SUPERVISOR by tac. Read back OK. HEMATOLOGY Basophils # 0.2 K/CMM 0.0 - 0.2 10/25 Normal [facility] HEMATOLOGY Plt Morph Normal 10/25 Normal Medical (10/25/2012 00:15:00) Center CHEMISTRY ALT 15 unit/L 0 - 65 10/24 Normal [facility] CHEMISTRY Albumin Lvl 2.7 g/dL 3.5 - 5.0 10/24 LOW [facility] CHEMISTRY Bili Total 0.5 mg/dL 0.2 - 1.3 10/24 Normal [facility] CHEMISTRY Alk Phos 83 unit/L 39 - 136 10/24 Normal [facility] CHEMISTRY Bili Direct 0.2 mg/dL 0.0 - 0.3 10/24 Normal [facility] CHEMISTRY Total Protein 5.8 g/dL 6.4 - 8.4 10/24 LOW [facility] CHEMISTRY AST 41 unit/L 0 - 37 10/24 HI [facility] CHEMISTRY Bili Indirect 0.3 mg/dL 0.0 - 1.0 10/24 Normal [facility] CHEMISTRY Globulin 3.1 g/dL 2.0 - 4.0 10/24 Normal [facility] CHEMISTRY A/G Ratio 0.9 0.7 - 1.6 10/24 Normal [facility] CHEMISTRY POC A Mode NC-3LPM 10/24 NA [facility] CHEMISTRY POC A HCO3 19 mMol/L 22 - 26 10/24 LOW [facility] CHEMISTRY POC A O2 Sat 98.0 % 95.0 - 10/24 Normal [place] 100.0 /2012 [facility] CHEMISTRY POC A BE -6 mMol/L -2-2 - 2 10/24 LOW [facility] CHEMISTRY POC A PO2 103 mm[Hg] 80 - 100 10/24 HI [facility] CHEMISTRY POC A pH 7.35 7.35 - 10/24 LOW [place] 7.45 [facility] CHEMISTRY POC A PCO2 34 mm[Hg] 35 - 45 10/24 LOW [facility] CHEMISTRY POC A Temp 37.0 Abby 10/24 NA [facility] CHEMISTRY POC A Source ART 10/24 NA [facility] CHEMISTRY Troponin-T 0.688 0.000 - 10/24 CRIT 16Result [place] ng/mL 0.100 Comment: [facility] Critical Center Result(s) called to Maribel Bustos at 10/24/2012 13:23:46 [employer]PENSING SUPERVISOR by lwb . Read back OK. CHEMISTRY Troponin-I 7.61 ng/mL 0.00 - 10/24 CRIT 19Result [place] 0.40 Comment: [facility] Critical [facility] Result(s) called to mariana bustos at _ 10/24/2012 13:37:22 CSTby_lss. Read back OK. CHEMISTRY Total CK 150 unit/L 12 - 191 10/24 Normal [facility] CHEMISTRY Lactic Acid 0.7 mMol/L 0.5 - 2.2 10/24 Normal [facility] Lvl [facility] CHEMISTRY CK MB Index 11.0 0.0 - 2.5 10/24 HI [facility] CHEMISTRY CK MB 16.5 ng/mL 0.5 - 3.6 10/24 HI [facility] CHEMISTRY Troponin-T 0.750 0.000 - 10/24 CRIT 17Result [place] ng/mL 0.100 Comment: Medical Critical [facility] Result(s) called to Lyn King at 10/24/2012 09:52:38 [employer]ING SUPERVISOR by lwb . Read back OK. CHEMISTRY Troponin-I 7.60 ng/mL 0.00 - 02/18 CRIT 20Result [facility] 0.40 /2012 Comment: Medical Critical Center Result(s) called to romero beltre at _10/24/2012 09:50:18 M[employer]PENSING SUPERVISOR by_lss. Read back OK. CHEMISTRY Total CK 170 unit/L 12 - 191 10/24 Normal 14Result Comment: Medical Specimen Center Moderately Hemolyzed. CHEMISTRY CK MB Index 10.5 0.0 - 2.5 10/24 [facility] CHEMISTRY CK MB 17.8 ng/mL 0.5 - 3.6 10/24 [facility] CHEMISTRY Ketone 0.07 <=0.27 10/24 Normal [facility] Quantitative mmol/L [facility] CHEMISTRY Ketone 2.61 <=0.27 10/24 [facility] Quantitative mmol/L [facility] CHEMISTRY CK MB 30.9 ng/mL 0.5 - 3.6 10/24 [facility] CHEMISTRY CK MB Index 12.2 0.0 - 2.5 10/24 [facility] CHEMISTRY Total CK 254 unit/L 12 - 191 10/24 [facility] CHEMISTRY Lactic Acid 0.6 mMol/L 0.5 - 2.2 10/24 Normal [facility] Lvl [facility] CHEMISTRY POC V O2 Sat 56.0 % 40.0 - 10/24 Normal [facility] 70.0 [facility] CHEMISTRY POC V HCO3 22 mmol/L 22 - 26 10/24 Normal [facility] CHEMISTRY POC V PO2 32 mm[Hg] 20 - 49 10/24 Normal [facility] CHEMISTRY POC V BE -4 mmol/L -2-2 - 2 10/24 LOW [facility] CHEMISTRY POC V PCO2 41 mm[Hg] 38 - 52 10/24 Normal [facility] CHEMISTRY POC V pH 7.33 7.28 - 10/24 Normal [facility] 7.42 [facility] CHEMISTRY POC V Temp 37.0 Abby 10/24 NA [facility] CHEMISTRY POC V Source MARK 10/24 NA [facility] CHEMISTRY Ketone 0.93 <=0.27 10/24 HI [facility] Quantitative mmol/L [facility] [employer]: 10/24 [facility] y [facility] CHEMISTRY Lactic Acid 0.6 mMol/L 0.5 - 2.2 10/23 Normal [facility] Lvl [facility] [employer]: 10/23 [facility] y Blood Medical [place] CHEMISTRY POC A Source ART 10/23 NA [facility] CHEMISTRY POC A PO2 144 mm[Hg] 80 - 100 10/23 HI Medical [place] CHEMISTRY POC A Temp 37.0 Abby 10/23 NA [facility] CHEMISTRY POC A pH 7.35 7.35 - 10/23 LOW [facility] 7.45 Medical [place] CHEMISTRY POC A Glu 159 mg/dL 70 - 99 10/23 HI Medical [place] CHEMISTRY POC A BE -5 mMol/L -2-2 - 2 10/23 LOW [facility] CHEMISTRY POC A O2 Sat 99.0 % 95.0 - 10/23 Normal [facility] 100.0 [facility] CHEMISTRY POC A Hct 35.0 % 36.0 - 10/23 LOW [facility] 48.0 Medical [place] CHEMISTRY POC A HCO3 20 mMol/L 22 - 26 10/23 LOW [facility] CHEMISTRY POC A PCO2 36 mm[Hg] 35 - 45 10/23 Normal [facility] CHEMISTRY POC A LA 0.6 mMol/L 0.5 - 2.2 10/23 Normal [facility] CHEMISTRY POC A Ca Ion 1.20 1.16 - 10/23 Normal [facility] mMol/L 1.30 [facility] CHEMISTRY POC A Na 133 meq/L 135 - 145 10/23 LOW [facility] CHEMISTRY POC A K 3.8 meq/L 3.5 - 5.1 10/23 Normal [facility] CHEMISTRY A/G Ratio 0.8 0.7 - 1.6 10/23 Normal [facility] CHEMISTRY AST 90 unit/L 0 - 37 10/23 HI [facility] CHEMISTRY Globulin 3.9 g/dL 2.0 - 4.0 10/23 Normal [facility] CHEMISTRY B/C Ratio 16 6 - 25 10/23 Normal [facility] CHEMISTRY Total Protein 7.2 g/dL 6.4 - 8.4 10/23 Normal [facility] CHEMISTRY Bili Total 0.5 mg/dL 0.2 - 1.3 10/23 Normal [facility] CHEMISTRY Albumin Lvl 3.3 g/dL 3.5 - 5.0 10/23 LOW [facility] CHEMISTRY Alk Phos 94 unit/L 39 - 136 10/23 Normal [facility] CHEMISTRY ALT 23 unit/L 0 - 65 10/23 Normal [facility] CHEMISTRY Osmolality 292 280 - 300 10/23 Normal [facility] mOsm/kg [facility] CHEMISTRY Myoglobin 128 ng/mL 25 - 72 10/23 HI [facility] [facility] Microbiolog Culture: 10/23 [facility] y [facility] Screen BACTERIAL - MRSA by PCR Positive 1, 2 10/23 ABN 2Interpretive Data: Interpretive Data: The [employer] Light[employer] MRSA assay is a qualitative test for the direct detection of nasal colonization with methicillin-resistant Staphylococcus aureus (MRSA) to aid [facility] in the prevention and control of MRSA [...] by the Molecular Diagnostic Laboratory within the [facility]. The Molecular Diagnostic Labor atory is authorized under the Clinical Laboratory Improvement Amendment of 1988 (CLIA-88) to perform high complexity testing. CHEMISTRY Osmolality 309 280 - 300 10/23 HI mOsm/kg [facility] CHEMISTRY POC A Hct 37.0 % 36.0 - 10/23 Normal [place] 48.0 [facility] CHEMISTRY POC A Na 129 meq/L 135 - 145 10/23 LOW [facility] CHEMISTRY POC A LA 1.0 mMol/L 0.5 - 2.2 10/23 Normal [facility] CHEMISTRY POC A K 4.5 meq/L 3.5 - 5.1 10/23 Normal [facility] CHEMISTRY POC A Glu null 70 - 99 10/23 CRIT [facility] CHEMISTRY POC A Ca Ion 1.18 1.16 - 10/23 Normal [facility] mMol/L 1.30 [facility] CHEMISTRY POC A PCO2 30 mm[Hg] 35 - 45 10/23 CRIT [facility] CHEMISTRY POC A PO2 123 mm[Hg] 80 - 100 10/23 HI [facility] CHEMISTRY POC A Temp 37.0 Abby 10/23 NA [facility] CHEMISTRY POC A HCO3 14 mMol/L 22 - 26 10/23 LOW [facility] CHEMISTRY POC A Source ART 10/23 NA [facility] CHEMISTRY POC A pH 7.27 7.35 - 10/23 LOW [facility] 7.45 [facility] CHEMISTRY POC A BE -12 mMol/L -2-2 - 2 10/23 LOW [facility] CHEMISTRY POC A O2 Sat 98.0 % 95.0 - 10/23 Normal [facility] 100.0 [facility] CHEMISTRY Bili Direct 0.4 mg/dL 0.0 - 0.3 10/23 HI [facility] CHEMISTRY Lipase Lvl 54 unit/L 73 - 393 10/23 LOW [facility] CHEMISTRY Amylase Lvl 28 unit/L 25 - 115 10/23 Normal [facility] CHEMISTRY B/C Ratio 10 6 - 25 10/23 Normal [facility] BLOOD BANK Antibody Scrn Negative 10/23 Normal Medical (10/23/2012 01:00:00) Center BLOOD BANK ABO/Rh A POS 10/23 Unknown [facility] URINALYSIS UA <=1.0 0.1 - 1.0 10/23 NA [facility] Urobilinogen mg/dL Medical
*NA*< Center br/>(10/23 00:01:00) <sup> </sup> URINALYSIS UA Sq Epi Moderate /LPF Few 10/23 ABN Medical *ABN* [place] (10/23/2012 00:01:00) URINALYSIS UA Leuk Est Negative Negative 10/23 Normal Medical (10/23/2012 00:01:00) Center URINALYSIS UA Nitrite Negative Negative 10/23 Normal Medical (10/23/2012 00:01:00) Center URINALYSIS UA Blood Negative Negative 10/23 Normal Medical (10/23/2012 00:01:00) Center URINALYSIS UA Glucose >=1000 mg/dL Negative 10/23 ABN [facility] *ABN* Center (10/23/2012 00:01:00) URINALYSIS UA Protein 10 mg/dL Negative 10/23 ABN [facility] *ABN* Center (10/23/2012 00:01:00) URINALYSIS UA pH 5.0 5.0 - 8.0 10/23 Normal [facility] URINALYSIS UA WBC 1 /HPF 0 - 5 10/23 Normal [facility] URINALYSIS UA Bili Negative Negative 10/23 NA Medical *NA* Center (10/23/2012 00:01:00) URINALYSIS UA Ketones >=150 mg/dL Negative 10/23 ABN [facility] *ABN* Center (10/23/2012 00:01:00) URINALYSIS UA Spec Grav 1.015 <=1.030 10/23 Normal [facility] URINALYSIS UA Turbidity Clear Clear 10/23 Normal [facility] (10/23/2012 00:01:00) Center URINALYSIS UA Color Light Yellow Yellow 10/23 NA [facility] *NA* Center (10/23/2012 00:01:00) BEDSIDE Gluc POC 265 mg/dL 70 - 99 10/08 [place] 1Interpretive [facility] GLUCOSE [facility] Data: Medical TESTING Center Upper Reportable Limit: 200 mg/dL. BEDSIDE Comment1 Notify 10/08 [facility] GLUCOSE RN/ /2012 Medical TESTING Center BEDSIDE Comment1 Notify 10/08 NA [facility] GLUCOSE RN/ /2012 [facility] Center BEDSIDE Gluc POC 204 mg/dL 70 - 99 10/08 [place] 2Interpretive [facility] [place] [facility] Data: [facility] TEST[facility] Center Upper Reportable Limit: 200 mg/dL. CHEMISTRY Phosphorus 2.7 mg/dL 2.5 - 4.5 10/08 Normal [facility] CHEMISTRY Magnesium Lvl 1.6 mg/dL 1.8 - 2.4 10/08 LOW [facility] CHEMISTRY Ca Ion 1.17 1.16 - 10/08 Normal [place] mMol/L 1. [facility] CHEMISTRY Ca Norm 1.18 1.16 - 10/08 Normal [facility] mMol/L 1. [facility] CHEMISTRY Ca Ion mgdL 4.68 mg/dL 4.65 - 02 Normal [facility] 5. [facility] CHEMISTRY Ca Norm mgdL 4.72 mg/dL 4.65 - 10/08 Normal [facility] 5. [facility] CHEMISTRY AGAP 17.6 meq/L 10.0 - 10/08 Normal [facility] 20.0 [facility] CHEMISTRY eGFR 109 10/08 NA 4Result Comment: The eGFR is calculated using the CKD-EPI formula. In most young, healthy individuals the eGFR will be > 90 mL/min/1.73m2. The eGFR declines with age. An eGFR of 60-89 may be normal in [facility] mL/min/1.7 some populations, particularly the elderly, for whom the CKD-EPI formula has not been extensively validated. Use of the eGFR is not recommended in the following populations: [place] [id number] Center Individuals with unstable creatinine concentrations, including [...] 24 meq/L 24 - 32 10/08 Normal [facility] CHEMISTRY Calcium Lvl 8.5 mg/dL 8.5 - 10.5 10/08 Normal [facility] CHEMISTRY Potassium Lvl 3.6 meq/L 3.5 - 5.1 10/08 Normal [facility] CHEMISTRY Chloride Lvl 96 meq/L 95 - 109 10/08 Normal [facility] CHEMISTRY Creatinine 0.6 mg/dL 0.5 - 1.4 10/08 Normal [facility] CHEMISTRY Sodium Lvl 134 meq/L 135 - 145 10/08 LOW [facility] CHEMISTRY Glucose Lvl 129 mg/dL 70 - 99 10/08 [place] 7Interpretive Data: Adult reference range values reflect the clinical guidelines of the [place] [employer]. [facility] CHEMISTRY BUN 4 mg/dL 7 - 22 10/08 LOW [facility] HEMATOLOGY Monocytes # 1.1 K/CMM 0.0 - 0.8 10/08 HI [facility] HEMATOLOGY Eosinophils # 0.3 K/CMM 0.0 - 0.5 02/ Normal [facility] HEMATOLOGY Basophils # 0.1 K/CMM 0.0 - 0.2 02 Normal [facility] HEMATOLOGY Microcyte 1+ None Seen 10/08 ABN Medical *ABN* Center (10/08/2012 03:57:00) HEMATOLOGY Segs 55.7 % 45.0 - 02/ Normal [facility] 75.0 /2012 [facility] HEMATOLOGY Lymphocytes 31.3 % 20.0 - 02/ Normal [facility] 40.0 /2012 [facility] HEMATOLOGY Monocytes 10.0 % 2.0 - 12.0 02/ Normal [facility] /2012 [facility] HEMATOLOGY Eosinophils 2.5 % 0.0 - 4.0 10/08 Normal [facility] HEMATOLOGY Segs-Bands # 6.1 K/CMM 1.5 - 8.1 10/08 Normal [facility] HEMATOLOGY Basophils 0.5 % 0.0 - 1.0 10/08 Normal [facility] HEMATOLOGY Lymphocytes # 3.4 K/CMM 1.0 - 5.5 02 Normal [facility] HEMATOLOGY RDW 16.9 % 11.5 - 02/ [facility] 14.5 /2012 [facility] HEMATOLOGY Platelet 218 K/CMM 133 - 450 02 Normal [facility] HEMATOLOGY WBC 10.9 K/CMM 3.7 - 10.4 10/08 [facility] HEMATOLOGY RBC 4.35 M/CMM 4.20 - 02 [facility] 5.40 /2012 [facility] HEMATOLOGY MPV 9.7 fL 7.4 - 10.4 02 Normal [facility] HEMATOLOGY Hgb 10.4 g/dL 12.0 - 02/ [facility] 16.0 /2012 [facility] HEMATOLOGY Hct 32.7 % 36.0 - 02/ [facility] 48.0 /2012 [facility] HEMATOLOGY MCHC 31.8 g/dL 32.0 - 02 [facility] 36.0 [facility] HEMATOLOGY MCV 75.2 fL 81.0 - 10/08 [facility] 99.0 /2012 [facility] HEMATOLOGY MCH 23.9 pg 27.0 - 02 [facility] 31.0 [facility] BEDSIDE Comment1 Notify 10/08 NA [facility] GLUCOSE RN/MD /2013 [facility] BEDSIDE Gluc POC 247 mg/dL 70 - 99 10/08 [place] 3Interpretive [facility] GLUCOSE Lifscn Data: [facility] Upper Reportable Limit: 200 mg/dL. CHEMISTRY Magnesium Lvl 2.1 mg/dL 1.8 - 2.4 10/07 Normal [facility] CHEMISTRY Ca Norm 1.16 1.16 - 10/07 Normal [facility] mMol/L 1. [facility] CHEMISTRY Ca Ion mgdL 4.72 mg/dL 4.65 - 10/07 Normal [facility] 5. [facility] CHEMISTRY Ca Norm mgdL 4.64 mg/dL 4.65 - 10/07 LOW [facility] . [facility] CHEMISTRY Ca Ion 1.18 1.16 - 10/07 Normal [facility] mMol/L . [facility] CHEMISTRY Phosphorus 2.6 mg/dL 2.5 - 4.5 10/07 Normal [facility] CHEMISTRY Calcium Lvl 8.1 mg/dL 8.5 - 10.5 10/07 LOW [facility] CHEMISTRY AGAP 19.4 meq/L 10.0 - 10/07 Normal [facility] 20.0 [facility] CHEMISTRY eGFR 116 10/07 NA 5Result Comment: The eGFR is calculated using the CKD-EPI formula. In most young, healthy individuals the eGFR will be > 90 mL/min/1.73m2. The eGFR declines with age. An eGFR of 60-89 may be normal in [facility] mL/min/1.7 some populations, particularly the elderly, for whom the CKD-EPI formula has not been extensively validated. Use of the eGFR is not recommended in the following populations: [address] Individuals with unstable creatinine concentrations, including [...] BUN 6 mg/dL 7 - 22 10/07 LOW [facility] CHEMISTRY Glucose Lvl 99 mg/dL 70 - 99 10/07 Normal 8Interpretive Data: Adult reference range values reflect the clinical guidelines of the [place] [employer]. [facility] Center CHEMISTRY Creatinine 0.5 mg/dL 0.5 - 1.4 10/07 Normal [facility] Lvl /2012 [facility] CHEMISTRY Potassium Lvl 3.4 meq/L 3.5 - 5.1 10/07 LOW [facility] CHEMISTRY Sodium Lvl 135 meq/L 135 - 145 02 Normal [facility] CHEMISTRY CO2 24 meq/L 24 - 32 02 Normal [facility] CHEMISTRY Chloride Lvl 95 meq/L 95 - 109 02 Normal [facility] HEMATOLOGY MCHC 31.8 g/dL 32.0 - 02 [facility] 36.0 /2012 [facility] HEMATOLOGY MCH 24.1 pg 27.0 - 10/07 [facility] 31.0 [facility] HEMATOLOGY MCV 75.7 fL 81.0 - 10/07 [facility] 99.0 [facility] HEMATOLOGY Hct 31.0 % 36.0 - 10/07 [facility] 48.0 [facility] HEMATOLOGY Hgb 9.9 g/dL 12.0 - 02 [facility] 16.0 /2012 [facility] HEMATOLOGY MPV 9.1 fL 7.4 - 10.4 02 Normal [facility] HEMATOLOGY Platelet 222 K/CMM 133 - 450 02 Normal [facility] HEMATOLOGY RDW 16.8 % 11.5 - 02 [facility] 14.5 /2012 [facility] HEMATOLOGY RBC 4.10 M/CMM 4.20 - 02 [facility] 5.40 /2012 [facility] HEMATOLOGY WBC 13.8 K/CMM 3.7 - 10.4 02 HI [facility] HEMATOLOGY Segs-Bands # 9.6 K/CMM 1.5 - 8.1 02 [facility] HEMATOLOGY Basophils 0.3 % 0.0 - 1.0 02 Normal [facility] HEMATOLOGY Eosinophils 1.0 % 0.0 - 4.0 10/07 Normal [facility] HEMATOLOGY Microcyte 1+ None Seen 10/07 ABN Medical *ABN* Center (10/07/2012 03:25:00) HEMATOLOGY Lymphocytes # 2.9 K/CMM 1.0 - 5.5 10/07 Normal [facility] HEMATOLOGY Eosinophils # 0.1 K/CMM 0.0 - 0.5 02 Normal [facility] HEMATOLOGY Monocytes # 1.2 K/CMM 0.0 - 0.8 10/07 HI [facility] HEMATOLOGY Monocytes 8.8 % 2.0 - 12.0 10/07 Normal [facility] HEMATOLOGY Lymphocytes 20.8 % 20.0 - 02 Normal [facility] 40.0 [facility] HEMATOLOGY Segs 69.1 % 45.0 - 02 Normal [facility] 75.0 [facility] URINALYSIS UA Glucose 500mg/dL 10/06 NA [facility] URINALYSIS UA <=1.0 0.1 - 1.0 10/06 [facility] Urobilinogen mg/dL [facility]
*NA*< Center br/>(10/06 11:42:00) <sup> </sup> URINALYSIS Micro? Performed 10/06 NA [facility] *NA* [place] (10/06/2012 11:42:00) URINALYSIS UA [place] Yeast Moderate /HPF None Seen 10/06 ABN [facility] *ABN* [place] (10/06/2012 11:42:00) URINALYSIS UA RBC 3 /HPF 0 - 2 10/06 [facility] URINALYSIS UA Bacteria Many /HPF None Seen 10/06 [facility]* [place] (10/06/2012 11:42:00) URINALYSIS UA WBC 3 /HPF 0 - 5 10/06 Normal [facility] URINALYSIS UA Leuk Est Negative Negative 10/06 Normal [facility] (10/06/2012 11:42:00) Center URINALYSIS UA Nitrite Negative Negative 10/06 Normal [facility] (10/06/2012 11:42:00) Center URINALYSIS UA Sq Epi Many /LPF Few 10/06 ABN [facility]* [place] (10/06/2012 11:42:00) URINALYSIS UA Bili Negative Negative 10/06 NA [facility]* [place] (10/06/2012 11:42:00) URINALYSIS UA Blood Negative Negative 10/06 Normal [facility] (10/06/2012 11:42:00) Center URINALYSIS UA pH 5.5 5.0 - 8.0 10/06 Normal [facility] URINALYSIS UA Protein 20 mg/dL Negative 10/06 [facility] (10/06/2012 11:42:00) URINALYSIS UA Ketones >=150 mg/dL Negative 10/06 [facility]* [place] (10/06/2012 11:42:00) URINALYSIS UA Color Yellow Yellow 10/06 NA [facility]* [place] (10/06/2012 11:42:00) URINALYSIS UA Turbidity Slight Clear 10/06 [facility] (10/06/2012 11:42:00) URINALYSIS UA Spec Grav 1.011 <=1.030 10/06 Normal [facility]2012 [facility] URINALYSIS UA Mucus Few /LPF None Seen 10/06 [facility] (10/06/2012 11:42:00) Microbiolog Culture: 10/06 [facility] y [facility] CHEMISTRY Phosphorus 2.5 mg/dL 2.5 - 4.5 10/06 Normal [facility]2012 [facility] CHEMISTRY Magnesium Lvl 1.5 mg/dL 1.8 - 2.4 10/[address] CHEMISTRY eGFR 76 10/06 NA 6Result Comment: The eGFR is calculated using the CKD-EPI formula. In most young, healthy individuals the eGFR will be > 90 mL/min/1.73m2. The eGFR declines with age. An eGFR of 60-89 may be normal in [facility] mL/min/1.7 some populations, particularly the elderly, for whom the CKD-EPI formula has not been extensively validated. Use of the eGFR is not recommended in the following populations: [address] Individuals with unstable creatinine concentrations, including [...] multiplied by the estimated BMI. CHEMISTRY Potassium Lvl 3.9 meq/L 3.5 - 5.1 10/06 Normal [facility] [place] /2013 [facility] CHEMISTRY Chloride Lvl 97 meq/L 95 - 109 10/06 Normal [facility] CHEMISTRY Calcium Lvl 8.3 mg/dL 8.5 - 10.5 10/06 LOW [facility] CHEMISTRY CO2 22 meq/L 24 - 32 10/06 LOW [facility] CHEMISTRY Glucose Lvl 234 mg/dL 70 - 99 10/06 [place] 9Interpretive Data: Adult reference range values reflect the clinical guidelines of the [place] [employer]. [facility] CHEMISTRY Creatinine 0.9 mg/dL 0.5 - 1.4 10/06 Normal [facility] Lvl [facility] CHEMISTRY BUN 9 mg/dL 7 - 22 10/06 Normal [facility] CHEMISTRY Sodium Lvl 134 meq/L 135 - 145 10/06 LOW [facility] CHEMISTRY AGAP 18.9 meq/L 10.0 - 10/06 Normal [facility] 20.0 [facility] HEMATOLOGY Segs-Bands # 13.3 K/CMM 1.5 - 8.1 10/06 [facility] HEMATOLOGY Basophils 0.2 % 0.0 - 1.0 10/06 Normal [facility] HEMATOLOGY Eosinophils 0.1 % 0.0 - 4.0 10/06 Normal [facility] HEMATOLOGY Monocytes 6.7 % 2.0 - 12.0 10/06 Normal [facility] HEMATOLOGY Segs 81.7 % 45.0 - 10/06 [facility] [place] 75.0 [facility] HEMATOLOGY Lymphocytes 11.3 % 20.0 - 10/06 LOW [facility] 40.0 [facility] HEMATOLOGY Microcyte 1+ None Seen 10/06 ABN Medical *ABN* Center (10/06/2012 04:25:00) HEMATOLOGY Monocytes # 1.1 K/CMM 0.0 - 0.8 10/06 [facility] HEMATOLOGY Lymphocytes # 1.8 K/CMM 1.0 - 5.5 10/06 Normal [facility] HEMATOLOGY RBC 4.28 M/CMM 4.20 - 10/06 Normal [place] 5.40 [facility] HEMATOLOGY WBC 16.3 K/CMM 3.7 - 10.4 10/06 [facility] HEMATOLOGY Hgb 10.3 g/dL 12.0 - 10/06 LOW [place] 16.0 /2012 [facility] HEMATOLOGY Hct 32.6 % 36.0 - 10/06 LOW [place] 48.0 /2012 [facility] HEMATOLOGY MCH 24.0 pg 27.0 - 10/06 [facility] [place] 31.0 /2012 [facility] HEMATOLOGY MCV 76.1 fL 81.0 - 10/06 [facility] [place] 99.0 /2012 Medical [facility] HEMATOLOGY MCHC 31.5 g/dL 32.0 - 10/06 [facility] [place] 36.0 [facility] HEMATOLOGY RDW 17.2 % 11.5 - 10/06 HI [place] 14.5 [facility] HEMATOLOGY Platelet 248 K/CMM 133 - 450 10/06 Normal [facility] HEMATOLOGY MPV 9.5 fL 7.4 - 10.4 10/06 Normal [facility] CHEMISTRY Ca Norm 1.07 1.16 - 10/05 [facility] [place] mMol/L 1. [facility] CHEMISTRY Ca Ion mgdL 4.36 mg/dL 4.65 - 10/05 [facility] [place] 5. [facility] CHEMISTRY Ca Norm mgdL 4.28 mg/dL 4.65 - 10/05 [facility] [place] 5. [facility] CHEMISTRY Ca Ion 1.09 1.16 - 10/05 [facility] [place] mMol/L 1. [facility] HEMATOLOGY Basophils # 0.1 K/CMM 0.0 - 0.2 10/05 Normal [facility] HEMATOLOGY Eosinophils # 0.1 K/CMM 0.0 - 0.5 10/05 Normal [facility] CHEMISTRY U Preg Negative Negative 10/03 Normal Medical (10/03/2012 06:31:00) Center BLOOD BANK ABO/Rh A POS 10/03 Unknown [facility] RESULTS [facility] Center BLOOD BANK Antibody Scrn Negative 10/03 Normal [facility] Medical (10/03/2012 06:00:00) Center CHEMISTRY Total Protein 7.8 g/dL 6.4 - 8.4 09/23 Normal [facility] CHEMISTRY AST 31 unit/L 0 - 37 09/23 Normal [facility] CHEMISTRY Bili Total 0.3 mg/dL 0.2 - 1.3 09/23 Normal [facility] CHEMISTRY ALT 50 unit/L 0 - 65 09/23 Normal [facility] CHEMISTRY Albumin Lvl 3.6 g/dL 3.5 - 5.0 09/23 Normal [facility] CHEMISTRY Alk Phos 150 unit/L 39 - 136 09/23 HI [facility] CHEMISTRY B/C Ratio 21 6 - 25 09/23 Normal [facility] CHEMISTRY Globulin 4.2 g/dL 2.0 - 4.0 09/23 HI [facility] CHEMISTRY A/G Ratio 0.9 0.7 - 1.6 09/23 Normal [facility] HEMATOLOGY Hypochrom Slight None Seen 09/23 Normal [facility] (09/23/2012 12:35:00) Center HEMATOLOGY Elliptocyte Slight None Seen 09/23 ABN Medical *ABN* [place] (09/23/2012 12:35:00) HEMATOLOGY Basophils # 0.1 K/CMM 0.0 - 0.2 09/23 Normal [facility] HEMATOLOGY Plt Morph Normal 09/23 Normal [facility] (09/23/2012 12:35:00) Center URINALYSIS UA <=1.0 0.1 - 1.0 09/23 NA [facility] Urobilinogen mg/dL Medical
*NA*< Center br/>(09/23 12:35:00) <sup> </sup> URINALYSIS UA Nitrite Negative Negative 09/23 Normal [facility] (09/23/2012 12:35:00) Center URINALYSIS UA Blood Negative Negative 09/23 Normal [facility] (09/23/2012 12:35:00) Center URINALYSIS UA Leuk Est Negative Negative 09/23 Normal [facility] (09/23/2012 12:35:00) Center URINALYSIS Micro? Not Indicated 09/23 NA [facility] *NA* [facility] (09/23/2012 12:35:00) URINALYSIS UA Ketones Negative mg/dL Negative 09/23 NA Medical *NA* [place] (09/23/2012 12:35:00) URINALYSIS UA Bili Negative Negative 09/23 [facility] Medical *NA* [place] (09/23/2012 12:35:00) URINALYSIS UA Protein Negative mg/dL Negative 09/23 Normal [facility] (09/23/2012 12:35:00) Center URINALYSIS UA pH 5.0 5.0 - 8.0 09/23 Normal [facility] URINALYSIS UA Glucose Negative mg/dL Negative 09/23 NA [facility] *NA* [place] (09/23/2012 12:35:00) URINALYSIS UA Color Light Yellow Yellow 09/23 NA [facility] *NA* Center (09/23/2012 12:35:00) URINALYSIS UA Spec Grav 1.004 <=1.030 09/23 Normal [facility] URINALYSIS UA Turbidity Clear Clear 09/23 Normal [facility] (09/23/2012 12:35:00) Center BEDSIDE Gluc POC 153 mg/dL 70 - 99 06/28 [place] 1Interpretive [facility] GLUCOSE [facility] Data: Medical TESTING Center Upper Reportable Limit: 200 mg/dL. CHEMISTRY U Preg Negative Negative 06/28 Normal [facility] (06/28/2012 07:27:00) Center Vital Signs Vital Sign Value Date Comments Source Systolic (mm Hg) 124 08/13/2013 [facility] Respitory Rate 18 08/13/2013 [facility] Temperature Oral (F) 98.8 F 08/13/2013 [facility] Heart Rate 102 08/13/2013 [facility] Diastolic (mm Hg) 46 08/13/2013 [facility] Systolic (mm Hg) 107 08/13/2013 [facility] Respitory Rate 18 08/13/2013 [facility] Diastolic (mm Hg) 63 08/13/2013 [facility] Heart Rate 103 08/13/2013 [facility] Heart Rate 105 08/13/2013 [facility] Respitory Rate 18 08/13/2013 [facility] Systolic (mm Hg) 117 08/13/2013 [facility] Diastolic (mm Hg) 70 08/13/2013 [facility] Weight 81.818 08/13/2013 [facility] Height 162.56 cm 08/13/2013 [facility] Temperature Oral (F) 98.4 F 08/13/2013 [facility] [facility] Diastolic (mm Hg) 61 07/15/2013 [facility] Temperature Oral (F) 97.7 F 07/15/2013 [facility] Systolic (mm Hg) 117 07/15/2013 [facility] Respitory Rate 18 07/15/2013 [facility] Heart Rate 90 07/15/2013 [facility] Respitory Rate 18 07/14/2013 [facility] Heart Rate 104 07/14/2013 [facility] Diastolic (mm Hg) 46 07/14/2013 [facility] Systolic (mm Hg) 91 07/14/2013 [facility] Diastolic (mm Hg) 61 07/14/2013 [facility] Systolic (mm Hg) 95 07/14/2013 [facility] Respitory Rate 18 07/14/2013 [facility] Heart Rate 120 07/14/2013 [facility] Temperature Oral (F) 97.5 F 07/14/2013 [facility] Temperature Oral (F) 97.6 F 07/14/2013 [facility] Height 162.56 cm 07/12/2013 [facility] Weight 86.364 07/12/2013 [facility] Temperature Oral (F) 97.1 F 04/03/2013 [facility] Respitory Rate 18 04/03/2013 [facility] Heart Rate 79 04/03/2013 [facility] Diastolic (mm Hg) 66 04/03/2013 [facility] Systolic (mm Hg) 94 04/03/2013 [facility] Diastolic (mm Hg) 28 04/03/2013 [facility] Systolic (mm Hg) 116 04/03/2013 [facility] Respitory Rate 20 04/03/2013 [facility] Heart Rate 100 04/03/2013 [facility] Temperature Oral (F) 97.0 F 04/03/2013 [facility] Height 162.56 cm 04/03/2013 [facility] Weight 90 04/03/2013 [facility] Height 162.56 cm 04/02/2013 [facility] Weight 90 04/02/2013 [facility] Systolic (mm Hg) 132 03/09/2013 [facility] Diastolic (mm Hg) 72 03/09/2013 [facility] Heart Rate 114 03/09/2013 [facility] Temperature Oral (F) 97.7 F 03/09/2013 [facility] Respitory Rate 20 03/09/2013 [facility] Temperature Oral (F) 97.7 F 03/09/2013 [facility] Heart Rate 108 03/09/2013 [facility] Systolic (mm Hg) 143 03/09/2013 [facility] Respitory Rate 18 03/09/2013 [facility] Diastolic (mm Hg) 81 03/09/2013 [facility] Heart Rate 115 03/09/2013 [facility] Diastolic (mm Hg) 70 03/09/2013 [facility] Systolic (mm Hg) 153 03/09/2013 [facility] Respitory Rate 18 03/09/2013 [facility] Temperature Oral (F) 97.5 F 03/09/2013 [facility] Weight 90 03/07/2013 [facility] Height 162.56 cm 03/07/2013 [facility] Height 162.56 cm 03/06/2013 [facility] Weight 90 03/06/2013 [facility] Systolic (mm Hg) 127 12/07/2012 [facility] Diastolic (mm Hg) 49 12/07/2012 [facility] Heart Rate 90 12/07/2012 [facility] Temperature Oral (F) 98.3 F 12/07/2012 [facility] Respitory Rate 18 12/07/2012 [facility] Systolic (mm Hg) 104 12/07/2012 [facility] Temperature Oral (F) 98.6 F 12/07/2012 [facility] Respitory Rate 18 12/07/2012 [facility] Heart Rate 78 12/07/2012 [facility] Diastolic (mm Hg) 57 12/07/2012 [facility] Heart Rate 89 12/07/2012 [facility] Temperature Oral (F) 97.6 F 12/07/2012 [facility] Respitory Rate 18 12/07/2012 [facility] Systolic (mm Hg) 105 12/07/2012 [facility] Diastolic (mm Hg) 51 12/07/2012 [facility] Weight 100 11/29/2012 [facility] Height 162.56 cm 11/29/2012 [facility] Weight 100.568 11/29/2012 [facility] Height 162.56 cm 11/29/2012 [facility] Weight 101.364 11/28/2012 [facility] Height 162.56 cm 11/28/2012 [facility] Diastolic (mm Hg) 55 11/17/2012 [facility] Systolic (mm Hg) 117 11/17/2012 [facility] Diastolic (mm Hg) 70 11/17/2012 [facility] Systolic (mm Hg) 118 11/17/2012 [facility] Diastolic (mm Hg) 61 11/17/2012 [facility] Systolic (mm Hg) 154 11/17/2012 [facility] Temperature Oral (F) 97.8 F 11/17/2012 [facility] Temperature Oral (F) 97.9 F 11/17/2012 [facility] Temperature Oral (F) 98.6 F 11/17/2012 [facility] Height 162.56 cm 11/17/2012 [facility] Weight 103.21 11/17/2012 [facility] Respitory Rate 18 11/17/2012 [facility] Height 162.56 cm 11/16/2012 [facility] Weight 100 11/16/2012 [facility] Diastolic (mm Hg) 58 11/14/2012 [facility] Systolic (mm Hg) 121 11/14/2012 [facility] Respitory Rate 20 11/14/2012 [facility] Heart Rate 84 11/14/2012 [facility] Temperature Oral (F) 98.0 F 11/14/2012 [facility] Respitory Rate 20 11/14/2012 [facility] Systolic (mm Hg) 103 11/14/2012 [facility] Diastolic (mm Hg) 54 11/14/2012 [facility] Temperature Oral (F) 98.0 F 11/14/2012 [facility] Heart Rate 83 11/14/2012 [facility] Diastolic (mm Hg) 68 11/14/2012 [facility] Respitory Rate 20 11/14/2012 [facility] Heart Rate 79 11/14/2012 [facility] Systolic (mm Hg) 136 11/14/2012 [facility] Temperature Oral (F) 98.4 F 11/14/2012 [facility] Height 162.56 cm 11/06/2012 [facility] Weight 100 11/06/2012 [facility] Height 162.56 cm 11/06/2012 [facility] Weight 100 11/06/2012 [facility] Height 162.56 cm 11/06/2012 [facility] Weight 104.545 11/06/2012 [facility] Systolic (mm Hg) 131 11/01/2012 [facility] Diastolic (mm Hg) 62 11/01/2012 [facility] Systolic (mm Hg) 125 11/01/2012 [facility] Diastolic (mm Hg) 62 11/01/2012 [facility] Systolic (mm Hg) 155 10/31/2012 [facility] Diastolic (mm Hg) 54 10/31/2012 [facility] Temperature Oral (F) 99.7 F 10/31/2012 [facility] Temperature Oral (F) 96.7 F 10/31/2012 [facility] Temperature Oral (F) 98.1 F 10/31/2012 [facility] Respitory Rate 19 10/31/2012 [facility] Respitory Rate 19 10/31/2012 [facility] Respitory Rate 19 10/31/2012 [facility] Weight 78.2 10/24/2012 [facility] Heart Rate 126 10/23/2012 [facility] Heart Rate 130 10/23/2012 [facility] Weight 113.636 10/23/2012 [facility] Height 162.56 cm 10/23/2012 [facility] Heart Rate 119 10/23/2012 [facility] Height 162.56 cm 10/23/2012 [facility] Systolic (mm Hg) 123 10/08/2012 [facility] Respitory Rate 19 10/08/2012 [facility] Diastolic (mm Hg) 51 10/08/2012 [facility] Heart Rate 81 10/08/2012 [facility] Temperature Oral (F) 98.8 F 10/08/2012 [facility] Diastolic (mm Hg) 55 10/08/2012 [facility] Respitory Rate 20 10/08/2012 [facility] Systolic (mm Hg) 136 10/08/2012 [facility] Heart Rate 82 10/08/2012 [facility] Temperature Oral (F) 98.9 F 10/08/2012 [facility] Diastolic (mm Hg) 47 10/08/2012 [facility] Systolic (mm Hg) 107 10/08/2012 [facility] Temperature Oral (F) 98.1 F 10/08/2012 [facility] Respitory Rate 18 10/08/2012 [facility] Heart Rate 75 10/08/2012 [facility] Weight 118.200 10/03/2012 [facility] Height 162.56 cm 10/03/2012 [facility] Weight 118.182 09/23/2012 [facility] Height 162.56 cm 09/23/2012 [facility] Diastolic (mm Hg) 57 06/28/2012 [facility] Heart Rate 104 06/28/2012 [facility] Respitory Rate 18 06/28/2012 [facility] Systolic (mm Hg) 147 06/28/2012 [facility] Systolic (mm Hg) 153 06/28/2012 [facility] Diastolic (mm Hg) 61 06/28/2012 [facility] Respitory Rate 16 06/28/2012 [facility] Systolic (mm Hg) 136 06/28/2012 [facility] Diastolic (mm Hg) 52 06/28/2012 [facility] Respitory Rate 18 06/28/2012 [facility] Temperature Oral (F) 98.5 F 06/28/2012 [facility] Heart Rate 104 06/28/2012 [facility] Weight 118.182 06/14/2012 [facility] Height 162.56 cm 06/14/2012 [facility] Encounters Location Location Encounter Encounter Reason Attending ADM DC Status Source Details Type Number For Visit Provider Date Date [facility] DS [id number] DSU/ WOLFGANG 06/28 Active [facility] REFLUX SUSHILA [facility] Inpatient [id number] WOLFGANG 10/03 10/08 Active [facility] SUSHILA /2012 [facility] Inpatient [id number] N/V DARELL 10/23 11/01 Active [facility] DEHYDRATI SDRINGOLA- /2012 [facility] [place] [facility] In[facility] [id number] LAVONE 11/05 11/14 Active [facility] Medical ROSE /2012 [facility] OU [id number] CHIP 11/16 11/17 Active [facility] MARKUS /2012 [facility] Inpatient [id number] JUAN J 11/29 12/07 Active [facility] BRANDO /2012 [facility] OU [id number] SANJUANA 03/07 03/09 Active [facility] OSUAGWU /2012 [facility] OU [id number] JEANNIE 04/02 04/03 Active [facility] ADOLFO /2012 [facility] OU [id number] GASTROPAR JEANNIE 07/12 07/14 Active [facility] ESIS ADOLFO /2012 [facility] SUKH [id number] WOLFGANG 07/26 07/27 Active [facility] SUSHILA /2012 [facility] Emergency [id number] KATELYN 08/13 08/13 Active [facility] TIERNEY /2012 [facility] Outpatient [id number] NASEAU ROSEANN Cancel [facility] Procedures Procedure Code Date Perfomer Comments Source section [id number] [facility] Cholecystectomy [id number] [facility] <sup>1</sup> [facility] Hand repair [id number], x'2 [facility] <sup>2</sup> [facility] Tonsillectomy [id number] [facility] <sup>3</sup> [facility] Bypass of stomach [id number] [facility] Rotator cuff repair [id number] [facility] Heart procedure [id number] 1cardiac [facility] <sup>1</sup> stent for [facility]
--- OUTSIDE RECORDS SUMMARY | 2018-02-26 20:15 | XMS REPORT | CCD ---
:1965 Author Organization [facility] Care Team Providers Name Role [...]
--- OUTSIDE RECORDS SUMMARY | 2018-02-26 20:16 | XMS REPORT | CCD ---
:[address] [facility] Care Team Providers Name Role Phone Sukhwinder Renteria Referring Provider Allergies, Adverse Reactions, Alerts Substance Reaction Status NKDA Active Problem List Condition Effective Dates Status Acid reflux Resolved Anemia Resolved Anxiety Resolved Arthritis Resolved Depression Resolved Diabetes mellitus type 1 Resolved Edema of lower extremity Resolved Fibromyalgia Resolved Hyperlipidemia Resolved Hypertension Resolved Medications Medication Instructions Start Date End Date Status Gause 325 mg-10 mg / 15 mL, Route: [...] Duration: 30 day, Stop date: 11/02/12 10:59:00 Gause 325 mg-10 mg / 30 mL, Route: PO, 10/04/2012 10/05/2012 Discontinued 15 mL oral solution Drug Form: SOLN, Dosing Weight 118.2, kg, Q4H, PRN Pain Score 6-10, Start date: 10/04/12 17:20:00, Duration: 30 day, Stop date: 11/03/12 17:19:00 Gause 325 mg-10 mg / 15 mL, Route: [...] 14:28:00, PRN Blood Glucose Results Blistex Lip [place] Route: TOP, Dosing 10/06/2012 10/06/2012 Deleted Weight [...] /LPF] Few /LPF *NA* (10/06/2012 11:42:00) UA [place] Yeast [None Seen /HPF] Moderate /HPF *ABN* [...] values reflect the clinical guidelines of the [place] [employer].8Interpretive Data: Adult reference range values reflect the clinical guidelines of the [place] [employer].9Interpretive Data: Adult reference range values reflect the clinical guidelines of the [place] [employer].HEMATOLOGY Most recent to oldest 1 [...] Catch FREE TEXT SOURCE: FINAL REPORTS Final Aqwizk18,000 - 50,000 CFU/mL Enterococcus SpeciesPRELIMINARY REPORTS Preliminary Argfpu55,000 - 50,000 CFU/ mL Enterococcus Species ; Sensitivity PendingSUSCEPTIBILITY REPORT ENTERO Antibiotic INTERP. VDIL Ampicillin S Levofloxacin S Nitrofurantoin S Tetracycline R Vancomycin S Procedures Procedures Date Related Diagnosis section Cholecystectomy 1 Hand repair 2 Tonsillectomy 3 , [id number]
--- OUTSIDE RECORDS SUMMARY | 2018-02-26 20:16 | XMS REPORT | CCD ---
:1965 Author Organization [facility] Care Team Providers Name Role Phone [place] Arabella Ruelas Consulting Provider Ezio Sifuentes Consulting Provider Allergies, Adverse Reactions, Alerts Substance Reaction Status NKDA Active Problem List Condition Effective Dates Status Acid reflux Resolved Anemia Resolved Anxiety Resolved Arthritis Resolved Depression Resolved Diabetes mellitus type 1 Resolved Edema of lower extremity Resolved Fibromyalgia Resolved Hyperlipidemia Resolved Hypertension Resolved MRSA1, 2 10/23/2012 Active 1nares 10/23/[id number] added by Discern Expert. Medications Medication Instructions [...] Duration: 30 day, Stop date: 12/06/12 1:48:00 [place] 5/325 oral tablet 1 tab, PO, Q6H, [...] Duration: 30 day, Stop date: 12/08/12 10:44:00 [place] 5/325 oral tablet 1 tab, Route: PO, [...] INJ, Q2H, Dosing Weight 100, kg, Total bkxj=0025 mg, Start date: 11/14/12 8:00:00, Duration: 2 [...] 11/08/2012 11/08/2012 Canceled PO, Drug form: TAB, [id number], Dosing Weight 100, kg, Start date: 11/08/12 [...] [Negative] Negative 1 (11/12/2012 21:54:26) 1Interpretive Data: Codyigene Clostridium difficile assay utilizes loop-mediated isothermalDNA amplification (LAMP) technology to detect a 204 bp region of the tcdA gene within the PaLoc genesegment present in all known toxigenic C. difficile strains. The assay utilizes FDA cleared IVD reagents. Performance characteristics have been verified by the [facility] within the [facility]. The [facility] is [...] values reflect the clinical guidelines of the [place] [employer].10Interpretive Data: Adult reference range values reflect the clinical guidelines of the [place].11Result Comment: rechecked Critical Result (s) called leslie Conner Rose at 11/12/2012 02:56:37 ROLL FORGER by_mgm. Read back OK.12Interpretive Data: Adult reference range values reflect the clinical guidelines of the [place].13Result Comment: Critical Result(s) called to [...] 10.0 240 Poor Control, take action to [id number] Comment : Critical Result(s) called leslie Rose [...] Catch FREE TEXT SOURCE: FINAL REPORTS Final Iqpgdm44,000 - 100,000 CFU/mL Enterococcus SpeciesPRELIMINARY REPORTS Preliminary Oorhlq57,000 - 100,000 CFU/ mL Enterococcus Species Identification And Sensitivity PendingSUSCEPTIBILITY REPORT ENTERO Antibiotic INTERP. VDIL Ampicillin S Levofloxacin S Nitrofurantoin S Tetracycline R Vancomycin S
--- OUTSIDE RECORDS SUMMARY | 2018-02-26 20:17 | XMS REPORT | CCD ---
:1965 Author Organization [facility] Care Team Providers Name Role Phone Emeli Clark Consulting Provider Allergies, Adverse Reactions, Alerts Substance Reaction Status NKDA Active Problem List Condition Effective Dates Status Acid reflux Resolved Anemia Resolved Anxiety Resolved Arthritis Resolved Depression Resolved Diabetes mellitus type 1 Resolved Edema of lower extremity Resolved Fibromyalgia Resolved Hyperlipidemia Resolved Hypertension Resolved MRSA1, 2 10/23/2012 Active 1nares 10/23/[id number] added by Discern Expert. Medications Medication Instructions [...] 1 doses or times, Dose= 2.2ml/kg, Max [id number] -- "To be infused by Radiology Staff ONLY" 201211/16/2012 Discontinued Dose=2.2ml/kg, Max [id number]=[id number] -- "To be infused by Radiology Staff ONLY" calcium gluconate + Sodium 2,000 mg, 20 mL, Route: 11/17/2012 11/17/2012 Completed Chloride 0.9% IV 80 mL IVPB, ONCE, Dosing Weight 103.21, kg, Start date: 11/17/12 11:02:00, Stop date: 11/17/12 11:02:00 enoxaparin 40 mg, 0.4 mL, Route: 11/16/2012 11/17/2012 Discontinued SUB-Q, Drug form: INJ, [id number], Dosing Weight 100, kg, Start date: 11/16/12 [...] date: 11/16/12 13:40:00, Stop date: 11/16/12 13:40:00 [place] 5/325 oral tablet 1 tab, Route: PO, [...] values reflect the clinical guidelines of the [place] [employer].7Interpretive Data: Adult reference range values reflect the clinical guidelines of the [place] [employer].HEMATOLOGY Most recent to oldest [Reference [...]
--- OUTSIDE RECORDS SUMMARY | 2018-02-26 20:17 | XMS REPORT | CCD ---
:1965 Author Organization [facility] Care Team Providers Name Role Phone Nikhil Hager Consulting Provider Sukhwinder Renteria Consulting Provider Allergies, Adverse Reactions, Alerts Substance Reaction Status NKDA Active Problem List Condition Effective Dates Status Acid reflux Resolved Anemia Resolved Anxiety Resolved Arthritis Resolved Depression Resolved Diabetes mellitus type 1 Resolved Edema of lower extremity Resolved Fibromyalgia Resolved Hyperlipidemia Resolved Hypertension Resolved MRSA1, 2 10/23/2012 Active 1nares 10/23/201237780Sbsatah added by Discern Expert. Medications Medication Instructions [...] mg, 1 supp, 10/23/2012 11/01/2012 Discontinued Route: [place], Drug form: SUPP, Q6H, Dosing Weight 113.636, kg, PRN Fever, Start date: 10/23/12 0:37:00, Duration: 30 day, Stop date: 11/22/12 0:36:00 Visipaque 320mg/ml 126 mL, Route: IVP, Drug Form: SOLN, Dosing Weight 113.636 , kg, ONCALL, STAT, Start date: 10/23/12 16:52:00, Duration: 1 doses or times, Dose=2.2ml/kg, Max grez=206pf -- "To be infused by Radiology Staff ONLY" 10/2310/23/2012 Completed Dose=2.2ml/kg, Max axxb=547qv -- "To be infused by Radiology Staff [...] mg, 1 supp, 10/24/2012 10/24/2012 Deleted Route: [place], Drug form: SUPP, ONCE, Dosing Weight 78.2, [...] Duration: 1 doses or times, Dose=2.2ml/kg, Max ebab=728jn -- "To be infused by Radiology Staff ONLY" 10/2310/23/2012 Completed Dose=2.2ml/kg, Max sfnm=468ss -- "To be infused by Radiology Staff [...] by the Molecular Diagnostic Laboratory within the [facility]. The Molecular Diagnostic Laboratory is authorized under [...] values reflect the clinical guidelines of the [place] [employer].11Interpretive Data: Adult reference range values reflect the clinical guidelines of the [place] [employer].12Interpretive Data: Adult reference range values reflect the clinical guidelines of the [place] [employer].13Interpretive Data: Reference range is based on recommendations in the Endocrine Society Clinical Practice Guideline (J Clin Endocrinol Metab 2011;96:2629-0380)14Result Comment: Specimen Moderately Hemolyzed.15Result Comment: Critical Result(s) called to daisy otoole at 10/25/2012 01:18:09 FINISHER WALLBOARD AND PLASTERBOARD by tac. Read back OK.16Result Comment: Critical Result(s) called to Maribel Bustos at 10/24/2012 13:23:46 FINISHER WALLBOARD AND PLASTERBOARD by lwb . Readback OK.17Result Comment: Critical Result(s) called to Lyn King at 10/24/2012 09:52:38 FINISHER WALLBOARD AND PLASTERBOARD by lwb . Read back OK.18Result Comment: Critical Result(s) called to Jelani Rasmussen at 10/25/2012 00: 47:48 FINISHER WALLBOARD AND PLASTERBOARD by RM. Read back OK.19Result Comment: Critical Result(s) called to mariana bustos at _ 10/24/2012 13:37:22 CSTby_lss. Readback OK.20Result Comment : Critical Result(s) called to romero beltre at _10/24/2012 09:50:18 FINISHER WALLBOARD AND PLASTERBOARD by_lss. Read back OK.21Interpretive Data: HbA1C% eAG(mg/dL) [...] Data: Heparin Therapeutic Range: 57 - 92 [id number] Data: Heparin Therapeutic Range: 57 - 92 [id number] Data: Heparin Therapeutic Range: 57 - 92 Seconds Microbiology Reports PROCEDURE:Culture: Urine STATUS: Auth (Verified) BODY SITE: COLLECTED DATE/TIME: 10/23/2012 20:33:00 SOURCE: Urine,Straight Cath FREE TEXT SOURCE: FINAL REPORTS Final Nprqbc66,000 - 100,000 CFU/mL Gram Negative Rods , Lactose Fermenters , 2 [place] Types 50,000 - 100,000 CFU/mL Enterococcus Species [...]
--- OUTSIDE RECORDS SUMMARY | 2018-02-26 20:18 | XMS REPORT | CCD ---
:1965 Author Organization [facility] Care Team Providers Name Role Phone Marcela Michaelsbhumika Westbrook Consulting Provider Alberto Mata Consulting Provider Allergies, Adverse Reactions, Alerts Substance Reaction Status NKDA Active Problem List Condition Effective Dates Status Acid reflux Resolved Anemia Resolved Anxiety Resolved Arthritis Resolved Depression Resolved Diabetes mellitus type 1 Resolved Edema of lower extremity Resolved Fibromyalgia Resolved Hyperlipidemia Resolved Hypertension Resolved [place] - Myocardial infarction 10/22/2012 Resolved MRSA1, 2, 3, 4 10/23/2012 Active Neuropathy Resolved - Nares - Izlhm8knzru 10/23/201250343Lrcdfmz added by Discern Expert. Medications Medication Instructions [...] IVPB, Drug 12/02/2012 12/02/2012 Discontinued form: PDR/INJ, [id number], Dosing Weight 100, kg, Start date: 12/02/12 [...] 11/29/2012 11/29/2012 Discontinued SUB-Q, Drug form: INJ, [id number], Dosing Weight 101.364, kg, Start date: 11/29/12 [...] mg, 1 supp, Route: 12/04/2012 12/07/2012 Discontinued [place], Drug form: SUPP, Q4H, Dosing Weight 100, [...] date: 12/04/12 23:39:00, Stop date: 12/04/12 23:39:00 [place] 7.5/325 oral tablet 1 tab, Route: PO, [...] IVPB, Drug 11/29/2012 12/01/2012 Discontinued form: PDR/INJ, [id number], Dosing Weight 100, kg, Start date: 11/29/12 [...] 7:47:00 Phenergan 25 mg rectal 1 supp, [place], Q6H, PRN, 9 11/29/2012 Ordered suppository supp, [...] by the Molecular Diagnostic Laboratory within the [facility]. The Molecular Diagnostic Laboratory is authorized [...] values reflect the clinical guidelines of the [place] [employer].11Interpretive Data: Adult reference range values reflect the clinical guidelines of the [place] [employer].12Interpretive Data: Adult reference range values reflect the clinical guidelines of the [place] [employer].13Interpretive Data: No established reference ranges.14Interpretive [...] Data: Heparin Therapeutic Range: 57 - 92 Zbegtun75Ilalrmgwdyap Data: Heparin Therapeutic Range: 57 - 92 [...] Catch FREE TEXT SOURCE: FINAL REPORTS Final Otwtjo95,000 - 50,000 CFU/mL Yeast <10,000 CFU/mL Skin EsPRELIMINARY REPORTS Preliminary ReportNo Growth; Holding Procedures Procedures Date Related Diagnosis Heart procedure 1 1cardiac stent for [place]
--- OUTSIDE RECORDS SUMMARY | 2018-02-26 20:19 | XMS REPORT | CCD ---
:[address] [facility] Care Team Providers Name Role Phone Alberto Matavor Consulting Provider Allergies, Adverse Reactions, Alerts Substance Reaction Status NKDA Active Problem List Condition Effective Dates Status Acid reflux Resolved Anemia Resolved Anxiety Resolved Arthritis Resolved Depression Resolved Diabetes mellitus type 1 Resolved Edema of lower extremity Resolved Fibromyalgia Resolved Gastric ulcer Resolved Hyperlipidemia Resolved Hypertension Resolved [place] - Myocardial infarction 10/22/2012 Resolved MRSA1, 2, 3, 4 10/23/2012 Active Neuropathy Resolved - Nares - Nevep2surzv 10/23/201227278[place] added by Discern Expert. Medications Medication Instructions Start Date End Date Status acetaminophen-hydrocod 1 tab, Route: PO, Drug Form: 07/12/2013 07/14/2013 Discontinued one 325 mg-5 mg oral TAB, Dosing Weight 86.364, tablet kg, Q4H, PRN Pain, Start date: 07/12/13 18:23:00, Duration: 30 day, Stop date: 08/11/13 18:22:00(Same as: [place] 325/5) Do not exceed 4gm/day of acetaminophen. [...] 1 doses or times, Dose =2.2ml/kg, Max kdfn=635yz -- "To be infused by Radiology Staff ONLY" 201207/12/2013 Completed Dose=2.2ml/kg, Max vjdn=209bu -- "To be infused by Radiology Staff [...] day, Stop date: 08/11/13 9:00:00(Same as: Lopressor) [place] 5/325 oral 1 tab, Route: PO, Dosing [...] date: 08/11/13 9:00:00(Same as: Mag-Ox 400)Magnesium oxide 780bx=156sd elemental magnesiumDose=____mg magnesium oxide (___mg elemental magnesium) [...] [Negative] Negative 1 (07/13/2013 00:00:59) 1Interpretive Data: Megathread illumigene Clostridium difficile assay utilizes loop-mediated isothermalDNA amplification (LAMP) technology to detect a 204 bp region of the tcdA gene within the PaLoc genesegment present in all known toxigenic C. difficile strains. The assay utilizes FDA cleared IVD reagents. Performance characteristics have been verified by the Molecular Diagnostic Laboratory within the [facility]. The Molecular Diagnostic Laboratory is authorized [...] /LPF] Many /LPF *ABN* (07/12/2013 03:00:00) UA [place] Yeast [None Seen /HPF] Moderate /HPF *ABN* [...] values reflect the clinical guidelines of the [place] [employer].9Interpretive Data: Adult reference range values reflect the clinical guidelines of the [place] [employer].10Interpretive Data: Adult reference range values reflect the clinical guidelines of the [place] [employer].HEMATOLOGY Most recent to oldest [Reference [...] to oldest [Reference Range]: 1 2 3 [place]-HIV 1/2 Ab [Negative] Negative *NA* (07/14/2013 00:27:00) [place]-Hep C Ab [Negative] Negative *NA* (07/14/2013 00:27:00) CDC-HIV 1/2 Ab [Negative] Negative *NA* (07/12/2013 16:02:06)
--- OUTSIDE RECORDS SUMMARY | 2018-02-26 20:19 | XMS REPORT | CCD ---
:1965 Author Organization [facility] Care Team Providers Name Role Phone Sukhwinder Renteria Referring Provider Allergies, Adverse Reactions, Alerts Substance Reaction Status NKDA Active Problem List Condition Effective Dates Status Acid reflux Resolved Anemia Resolved Anxiety Resolved Arthritis Resolved Depression Resolved Diabetes mellitus type 1 Resolved Edema of lower extremity Resolved Fibromyalgia Resolved Gastric ulcer Resolved Hyperlipidemia Resolved Hypertension Resolved [place] - Myocardial infarction 10/22/2012 Resolved MRSA1, 2, 3, 4 10/23/2012 Active Neuropathy Resolved - Nares - Efwjy1zxhcr 10/23/201202003Xxxkifx added by Discern Expert. Medications Medication Instructions [...]
--- OUTSIDE RECORDS SUMMARY | 2018-02-26 20:19 | XMS REPORT | CCD ---
:1965 Author Organization [facility] Care Team Providers Name Role Phone JohnbeckiReno rossi Consulting Provider Carlos Hanley Consulting Provider Allergies, Adverse Reactions, Alerts Substance Reaction Status NKDA Active Problem List Condition Effective Dates Status Acid reflux Resolved Anemia Resolved Anxiety Resolved Arthritis Resolved Depression Resolved Diabetes mellitus type 1 Resolved Edema of lower extremity Resolved Fibromyalgia Resolved Gastric ulcer Resolved Hyperlipidemia Resolved Hypertension Resolved [place] - Myocardial infarction 10/22/2012 Resolved MRSA1, 2, 3, 4 10/23/2012 Active Neuropathy Resolved - Nares/ - Lskdu7zboff 10/23/201277015Rzrtrfw added by Discern Expert. Medications Medication Instructions [...] 03/08/13 3:17:00, Stop date: 03/08/13 3:17:00 lidocaine-epi 1%-1:971484 1 ml, Route: SUB-Q, Drug 03/07/2013 03/07/2013 [...] date: 03/07/13 2:35:00, Stop date: 03/07/13 2:35:00 [place] 5/325 oral tablet 1 tab, PO, Q6H, [...] Results BEDSIDE GLUCOSE TESTING Most recent to [facility] 1 2 3 [Reference Range]: Gluc POC [...] Reportable Limit: 200 mg/dL.URINALYSIS Most recent to [facility] [Reference Range]: 1 2 3 UA Turbidity [...] values reflect the clinical guidelines of the [place] Diabetes [employer].8Interpretive Data: Adult reference range values reflect the clinical guidelines of the [place] Diabetes [employer].9Interpretive Data: Adult reference range values reflect the clinical guidelines of the [place] Diabetes Association.HEMATOLOGY Most recent to oldest 1 [...]
--- OUTSIDE RECORDS SUMMARY | 2018-02-26 20:19 | XMS REPORT | CCD ---
:1965 Author Organization [facility] Care Team Providers Name Role Phone Alberto Mata Jace Consulting Provider Allergies, Adverse Reactions, Alerts Substance Reaction Status NKDA Active Problem List Condition Effective Dates Status Acid reflux Resolved Anemia Resolved Anxiety Resolved Arthritis Resolved Depression Resolved Diabetes mellitus type 1 Resolved Edema of lower extremity Resolved Fibromyalgia Resolved Gastric ulcer Resolved Hyperlipidemia Resolved Hypertension Resolved [place] - Myocardial infarction 10/22/2012 Resolved MRSA1, 2, 3, 4 10/23/2012 Active Neuropathy Resolved - Nares - Azomc9jxiwq 10/23/201285254Bhwsfug added by Discern Expert. Medications Medication Instructions [...]
--- OUTSIDE RECORDS SUMMARY | 2018-02-26 20:20 | XMS REPORT ---
:1965 Author Organization [facility] Address [address] [place] [address] [address] [place] [address] Care Team Providers Name Role Phone MILO [...] (BEAKER) (test 200 mg/dL 70-110 TESTED AT [facility] [address] [facility] [id number]) [facility] [address] [id number] 12:24:00 Test Item Value Reference Range Comments SODIUM (BEAKER) (test lzbx=432) 136 meq/L 136-145 POTASSIUM (BEAKER) (test kpsf=567) 5.4 meq/L 3.5-5.1 CHLORIDE (BEAKER) (test bevx=565) 102 meq/L 98-107 CO2 (BEAKER) (test wbtc=782) 25 meq/L 22-29 [id number] 12:24:00 Test Item Value Reference Range Comments GLUCOSE RANDOM (BEAKER) (test ozxv=536) 353 mg/dL 70-105 BUN AND [id number] 12:24:00 Test Item Value Reference Range Comments BLOOD UREA NITROGEN 14 mg/dL 7-21 (BEAKER) (test uice=289) CREATININE (BEAKER) (test 1.08 mg/dL 0.57-1.25 jxno=521) EGFR (BEAKER) (test 53 mL/min/1.73 sq m ESTIMATED GFR IS NOT bqdz=5078) ACCURATE CREATININE CLEARANCE IN PREDICTING GLOMERULAR FILTRATION RATE. ESTIMATED GFR IS NOT APPLICABLE FOR DIALYSIS PATIENTS. POCT-HEMOGLOBIN [id number] 11:43:00 Test Item Value Reference Range Comments POC-HEMOGLOBIN METER 12.1 g/dL 12.0-15.0 [address]ED AT [address] ([facility]) (test xazr=8384) [facility] [address] POCT-GLUCOSE [id number] 11:43:00 Test Item Value Reference Range Comments POC-GLUCOSE METER ([facility]) 320 mg/dL 70-110 Verify with Lab draw/TESTED AT (test fypv=7313) [address] [address]
--- OUTSIDE RECORDS SUMMARY | 2018-02-26 20:20 | XMS REPORT | CCD ---
:1965 Author Organization [facility] Care Team Providers Name Role Phone Robert Wooten Consulting Provider Allergies, Adverse Reactions, Alerts Substance Reaction Status NKDA Active Problem List Condition Effective Dates Status Acid reflux Resolved Anemia Resolved Anxiety Resolved Arthritis Resolved Depression Resolved Diabetes mellitus type 1 Resolved Edema of lower extremity Resolved Fibromyalgia Resolved Gastric ulcer Resolved Hyperlipidemia Resolved Hypertension Resolved [place] - Myocardial infarction 10/22/2012 Resolved MRSA1, 2, 3, 4 10/23/2012 Active Neuropathy Resolved - Nares - Wdfcu4mldqt 10/23/201265779Tbnwsjl added by Discern Expert. Medications Medication Instructions [...] values reflect the clinical guidelines of the [place] [employer].HEMATOLOGY Most recent to oldest [Reference [...]
--- NOTE | 2018-02-26 20:30 | RAD REPORT ---
EXAM DESCRIPTION: RAD - Foot Right 3 View - 02/26/2018 8:15 pm CLINICAL HISTORY: Pain;Swelling Trauma to great toe COMPARISON: No comparisons FINDINGS: Soft tissue swelling is noted involving the great toe. No fracture or dislocation seen. Sm all plantar calcaneal spur.
--- NOTE | 2018-02-26 20:34 | ER ---
Nurse's Notes [facility] Name: Ila Pérez Age: 52 yrs Sex: Female : 1965 Arrival Date: 02/26/2018 Time: 19:20 Bed 18 Private MD: Fabián Guerra E Diagnosis: Contusion of right foot;Cellulitis of right toe-minimal Presentation: 02/26 19:27 Presenting complaint: Patient states: she dropped a can on her foot 3 days ago and is aa1 still having pain and swelling in R great toe. 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 Transition of care: patient was not received from another setting of care. Onset of symptoms was February 23, 2018. Risk Assessment: Do you want to hurt yourself or someone else? Patient reports no desire to harm self or others. Initial Sepsis Screen: Does the patient meet any 2 criteria? No. Patient's initial sepsis screen is negative. Does the patient have a suspected source of infection? Yes: Skin breakdown/wound. Care prior to arrival: None. 19:27 Method Of Arrival: Ambulatory aa1 19:27 Acuity: DEVONTE 3 aa1 Triage Assessment: 19:34 General: Appears in no apparent distress. comfortable, Behavior is calm, cooperative, aa1 appropriate for age. 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 LMP N/A - Post-menopause aa1 Historical: - Allergies: 19:34 Gluten Protein; aa1 - Home Meds: 19:34 Albuterol Inhl [Active]; amoxicillin and tylenol #3 for dental procedure [Active]; aa1 aspirin 81 mg Oral chew 1 tab once daily [Active]; benzonatate 100 mg Oral cap 1 cap twice a day [Active]; bupropion HCl 150 mg Oral TbER once daily [Active]; Carafate 100 mg/mL Oral susp 10 mL three times a day [Active]; Cinnamon 500 mg Oral cap 2 cap daily [Active]; Claritin 10 mg Oral tab 1 tab once daily [Active]; cyclobenzaprine 10 mg Oral tab twice a day [Active]; D3 2000 IU 2 per day [Active]; diphenoxylate-atropine 2.5-0.025 mg Oral tab 1-2 tablets every 6 hours [Active]; duloxetine 60 mg Oral cpDR 2 caps once daily [Active]; ferrous sulfate 325 mg (65 mg iron) Oral TbEC twice a day [Active]; furosemide 20 mg Oral tab one to two tabs every morning [Active]; [place] 120 mg daily [Active]; Glucagon Emergency Kit (human) 1 mg IM kit 1 mL [Active]; Glucosamine Oral [Active]; Humalog 100 unit/mL Sub-Q soln [Active]; hydroxyzine HCl 25 mg Oral tab 1 tab twice a day [Active]; k2 100 mcg bid [Active]; Lantus 18 U Sub-Q soln daily [Active]; lisinopril 5 mg Oral tab 1 tab once daily [Active]; lorazepam 1 mg Oral tab twice a day [Active]; cholestopl 1 mg twice a day [Active]; lorazepam 1 mg Oral tab 1 tab 3 times per day [Active]; Lyrica Oral 150 mg 2 times per day [Active]; metoprolol succinate 25 mg Oral Tb24 1 tab once daily [Active]; multivitamin Oral cap [Active]; Myrbetriq 25 mg Oral Tb24 1 tab once daily [Active]; nitroglycerin 0.4 mg SL subl 1 tab every 5 minutes [Active]; ondansetron HCl 8 mg Oral tab [Active]; pantoprazole 40 mg Oral TbEC 1 tab 2 times per day [Active]; Rozerem 8 mg Oral tab 1 tab bedtime [Active]; tramadol 50 mg Oral tab 1 tab three times a day [Active]; trazodone 50 mg Oral tab nightly [Active]; Vasculera 630 mg Oral tab daily [Active]; - PMHx: 19:34 Anxiety; Arthritis; Depression; Diabetes - IDDM; Esophagitis; Fibromyalgia; aa1 gastroporeisis; GERD; heart disease; High Cholesterol; Hypertension; Myocardial infarction; neuropathy; raynaud's; sleep disorder; Tachycardia; - PSHx: 19:34 cataract sx; Tonsillectomy; Gastric Bypass; ; Cholecystectomy; Knee surgery; aa1 rotator cuff; trigger finger release; Carpal Tunnel Repair; - Immunization history:: Flu vaccine is not up to date. - Social history:: Smoking status: Patient uses tobacco products, smokes one-half pack cigarettes per day. - Ebola Screening: : No symptoms or risks identified at this time. Screenin:51 Abuse screen: Denies threats or abuse. Nutritional screening: No deficits noted. jd3 Tuberculosis screening: No symptoms or risk factors identified. Fall Risk Ambulatory Aid- None/Bed Rest/Nurse Assist (0 pts). Gait- Normal/Bed Rest/Wheelchair (0 pts) Mental Status- Oriented to own ability (0 pts). Total Esteban Fall Scale indicates No Risk (0-24 pts). Assessment: 19:47 General: Appears uncomfortable, Behavior is calm, cooperative, appropriate for age. jd3 Pain: Complains of pain in Right first toenail Quality of pain is described as aching, Is continuous, Aggravated by increased activity. Neuro: Level of Consciousness is awake, alert, obeys commands, Oriented to person, place, time, situation. Cardiovascular: Capillary refill < 3 seconds Patient's skin is warm and dry. Respiratory: Airway is patent Respiratory effort is even, unlabored, Respiratory pattern is regular, symmetrical. GI: Abdomen is round Patient currently denies diarrhea, nausea, vomiting. : No signs and/or symptoms were reported regarding the genitourinary system. EENT: No signs and/or symptoms were reported regarding the EENT system. Derm: Skin is intact, Skin is dry, Skin is normal, Skin temperature is warm. Musculoskeletal: Circulation, motion, and sensation intact. Range of motion: intact in all extremities. Injury Description: dropped item on right great toe causing wound. red and swollen. Vital Signs: 19:34 BP 144 / 63; Pulse 98; Resp 18; Temp 97.7; Pulse Ox 97% on R/A; Weight 92.99 kg; Height aa1 5 ft. 4 in. (162.56 cm); Pain 0/10; 19:34 Body Mass Index 35.19 (92.99 kg, 162.56 cm) aa1 ED Course: 19:20 Patient arrived in ED. ds1 19:20 Fabián Guerra MD is Private Physician. ds1 19:30 Triage completed. aa1 19:34 Arm band placed on left wrist. Patient placed in an exam room, on a stretcher. aa1 19:38 [facility] snw 19:38 Michael Omalley MD is Attending Physician. snw 19:47 Canseco, Jagdeep, RN is Primary Nurse. jd3 19:52 Patient has correct armband on for positive identification. Bed in low position. Call jsaray light in reach. Side rails up X 1. 20:15 Foot Right 3 View XRAY In Process Unspecified. EDMS 20:33 Fabián Guerra MD is Referral Physician. snw 21:09 No provider procedures requiring assistance completed. Patient did not have IV access fc during this emergency room visit. 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 Exp: jd3 05/05/2020. Lot #: [id number]. } Route: IM; Site: left deltoid; 21:08 Follow up: Response: No adverse reaction fc Outcome: 20:33 Discharge ordered by . snw 21:08 Discharged to home ambulatory. fc 21:08 Condition: good 21:08 Discharge instructions given to patient, Instructed on discharge instructions, follow up and referral plans. medication usage, wound care, Demonstrated understanding of instructions, follow-up care, medications, wound care, Prescriptions given X 2. 21:09 Patient left the ED. fc Signatures: Dispatcher [employer] JOCELYNPR Steph Rose, RN RN aa1 Janelle Barrera, CASHIER SUPERVISOR-C CASHIER SUPERVISOR-Csnw Nora Morales RN RN Ileana Monsivais ds1 Jagdeep Canseco, MARTÍNEZ magana
--- NOTE | 2018-02-26 20:34 | EDPHYS ---
Physician Documentation [facility] Name: Ila Pérez Age: 52 yrs Sex: Female : 1965 Arrival Date: 02/26/2018 Time: 19:20 Bed 18 Private MD: Fabián Guerra E ED Physician Michael Omalley HPI: 02/26 19:48 This 52 yrs old Female presents to ER via Ambulatory with complaints of Toe snw Swelling. 19:48 Onset: The symptoms/episode began/occurred suddenly, 3 day(s) ago, and became snw persistent. Modifying factors: The patient symptoms are alleviated by nothing, the patient symptoms are aggravated by nothing. It is unknown whether or not the patient has had similar symptoms in the past. podiatry. hx of IDDM. 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 LMP N/A - Post-menopause aa1 Historical: - Allergies: 19:34 Gluten Protein; aa1 - Home Meds: 19:34 Albuterol Inhl [Active]; amoxicillin and tylenol #3 for dental procedure [Active]; aa1 aspirin 81 mg Oral chew 1 tab once daily [Active]; benzonatate 100 mg Oral cap 1 cap twice a day [Active]; bupropion HCl 150 mg Oral TbER once daily [Active]; Carafate 100 mg/mL Oral susp 10 mL three times a day [Active]; Cinnamon 500 mg Oral cap 2 cap daily [Active]; Claritin 10 mg Oral tab 1 tab once daily [Active]; cyclobenzaprine 10 mg Oral tab twice a day [Active]; D3 2000 IU 2 per day [Active]; diphenoxylate-atropine 2.5-0.025 mg Oral tab 1-2 tablets every 6 hours [Active]; duloxetine 60 mg Oral cpDR 2 caps once daily [Active]; ferrous sulfate 325 mg (65 mg iron) Oral TbEC twice a day [Active]; furosemide 20 mg Oral tab one to two tabs every morning [Active]; [place] 120 mg daily [Active]; Glucagon Emergency Kit (human) 1 mg IM kit 1 mL [Active]; Glucosamine Oral [Active]; Humalog 100 unit/mL Sub-Q soln [Active]; hydroxyzine HCl 25 mg Oral tab 1 tab twice a day [Active]; k2 100 mcg bid [Active]; Lantus 18 U Sub-Q soln daily [Active]; lisinopril 5 mg Oral tab 1 tab once daily [Active]; lorazepam 1 mg Oral tab twice a day [Active]; cholestopl 1 mg twice a day [Active]; lorazepam 1 mg Oral tab 1 tab 3 times per day [Active]; Lyrica Oral 150 mg 2 times per day [Active]; metoprolol succinate 25 mg Oral Tb24 1 tab once daily [Active]; multivitamin Oral cap [Active]; Myrbetriq 25 mg Oral Tb24 1 tab once daily [Active]; nitroglycerin 0.4 mg SL subl 1 tab every 5 minutes [Active]; ondansetron HCl 8 mg Oral tab [Active]; pantoprazole 40 mg Oral TbEC 1 tab 2 times per day [Active]; Rozerem 8 mg Oral tab 1 tab bedtime [Active]; tramadol 50 mg Oral tab 1 tab three times a day [Active]; trazodone 50 mg Oral tab nightly [Active]; Vasculera 630 mg Oral tab daily [Active]; - PMHx: 19:34 Anxiety; Arthritis; Depression; Diabetes - IDDM; Esophagitis; Fibromyalgia; aa1 gastroporeisis; GERD; heart disease; High Cholesterol; Hypertension; Myocardial infarction; neuropathy; raynaud's; sleep disorder; Tachycardia; - PSHx: 19:34 cataract sx; Tonsillectomy; Gastric Bypass; ; Cholecystectomy; Knee surgery; aa1 rotator cuff; trigger finger release; Carpal Tunnel Repair; - Immunization history:: Flu vaccine is not up to date. - Social history:: Smoking status: Patient uses tobacco products, smokes one-half pack cigarettes per day. - Ebola Screening: : No symptoms or risks identified at this time. ROS: 19:46 Constitutional: Negative for fever, chills, and weight loss, Eyes: Negative for injury, snw pain, redness, and discharge, ENT: Negative for injury, pain, and discharge, Neck: Negative for injury, pain, and swelling, Cardiovascular: Negative for chest pain, palpitations, and edema, Respiratory: Negative for shortness of breath, cough, wheezing, and pleuritic chest pain, Abdomen/GI: Negative for abdominal pain, nausea, vomiting, diarrhea, and constipation, Back: Negative for injury and pain, : Negative for injury, bleeding, discharge, and swelling, Skin: Negative for injury, rash, and discoloration, Neuro: Negative for headache, weakness, numbness, tingling, and seizure. 19:46 MS/extremity: Positive for injury or acute deformity, contusion, swelling, tenderness, of the Right first toenail. Exam: 19:46 Constitutional: This is a well developed, well nourished patient who is awake, alert, snw and in no acute distress. Head/Face: Normocephalic, atraumatic. Eyes: Pupils equal round and reactive to light, extra-ocular motions intact. Lids and lashes normal. Conjunctiva and sclera are non-icteric and not injected. Cornea within normal limits. Periorbital areas with no swelling, redness, or edema. ENT: Nares patent. No nasal discharge, no septal abnormalities noted. Tympanic membranes are normal and external auditory canals are clear. Oropharynx with no redness, swelling, or masses, exudates, or evidence of obstruction, uvula midline. Mucous membranes moist. Neck: Trachea midline, no thyromegaly or masses palpated, and no cervical lymphadenopathy. Supple, full range of motion without nuchal rigidity, or vertebral point tenderness. No Meningismus. Chest/axilla: Normal chest wall appearance and motion. Nontender with no deformity. No lesions are appreciated. Cardiovascular: Regular rate and rhythm with a normal S1 and S2. No gallops, murmurs, or rubs. Normal PMI, no JVD. No pulse deficits. Respiratory: Lungs have equal breath sounds bilaterally, clear to auscultation and percussion. No rales, rhonchi or wheezes noted. No increased work of breathing, no retractions or nasal flaring. Abdomen/GI: Soft, non-tender, with normal bowel sounds. No distension or tympany. No guarding or rebound. No evidence of tenderness throughout. Back: No spinal tenderness. No costovertebral tenderness. Full range of motion. Neuro: Awake and alert, GCS 15, oriented to person, place, time, and situation. Cranial nerves II-XII grossly intact. Motor strength 5/5 in all extremities. Sensory grossly intact. Cerebellar exam normal. Normal gait. 19:46 Musculoskeletal/extremity: Extremities: grossly normal except: noted in the Right first toenail: contusion, erythema, ROM: intact in all extremities, Circulation is intact in all extremities. Sensation intact. 19:46 Skin: Appearance: normal except for affected area, cellulitis, that is minimal, well demarcated, on the Right first toenail. Vital Signs: 19:34 BP 144 / 63; Pulse 98; Resp 18; Temp 97.7; Pulse Ox 97% on R/A; Weight 92.99 kg; Height aa1 5 ft. 4 in. (162.56 cm); Pain 0/10; 19:34 Body Mass Index 35.19 (92.99 kg, 162.56 cm) aa1 MDM: 19:40 Patient medically screened. snw 20:34 Data reviewed: vital signs, nurses notes. Data interpreted: Pulse oximetry: on room air snw is 97 %. Interpretation: normal. Counseling: I had a detailed discussion with the patient and/or guardian regarding: the historical points, exam findings, and any diagnostic results supporting the discharge/admit diagnosis, the presence of at least one elevated blood pressure reading (>120/80) during this emergency department visit, radiology results, the need for outpatient follow up, to return to the emergency department if symptoms worsen or persist or if there are any questions or concerns that arise at home. Special discussion: I have referred the patient to see his PCP for further evaluation of high blood pressure. Based on the history and exam findings, there is no indication for further emergent testing or inpatient evaluation. I discussed with the patient/guardian the need to see the mri specialist for further evaluation of the symptoms. I discussed with the patient/guardian the need to see the primary care provider for further evaluation of the symptoms. 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 Exp: jd3 05/05/2020. Lot #: [id number]. } Route: IM; Site: left deltoid; 21:08 Follow up: Response: No adverse reaction fc Disposition: 02/26/18 20:33 Discharged to Home. Impression: Contusion of right foot, Cellulitis of right toe - minimal. - Condition is Stable. - Discharge Instructions: Cellulitis, Foot Contusion. - Prescriptions for Doxycycline Hyclate 100 mg Oral Tablet - take 1 tablet by ORAL route every 12 hours; 20 tablet. Diclofenac Sodium 75 mg Oral Tablet Sustained Release - take 1 tablet by ORAL route 2 times per day; 30 tablet. - Medication Reconciliation Form, Thank You Letter, Antibiotic Education, Prescription Opioid Use form. - Follow up: Fabián Guerra MD; When: 2 - 3 days; Reason: Recheck today's complaints, Continuance of care, Re-evaluation by your physician. Follow up: Emergency Department; When: As needed; Reason: Worsening of condition. Addendum: 02/28/2018 13:11 Co-signature as Attending Physician, Michael Omalley MD Available for consultation at p s1 all times. . Signatures: Dispatcher [employer] EDMS Steph Rose RN RN aa1 Janelle Barrera, SPECIALIST PHYSICIAN-C SPECIALIST PHYSICIAN-Csnw Nora Morales RN RN fc Jagdeep Canseco RN RN jd3 Michael Omalley MD MD ps1 Corrections: (The following items were deleted from the chart) 02/26 21:09 20:33 02/26/2018 20:33 Discharged to Home. Impression: Contusion of right foot; fc Cellulitis of right toe - minimal. Condition is Stable. Forms are Medication Reconciliation Form, Thank You Letter, Antibiotic Education, Prescription Opioid Use. Follow up: Fabián Guerra; When: 2 - 3 days; Reason: Recheck today's complaints, Continuance of care, Re-evaluation by your physician. Follow up: Emergency Department; When: As needed; Reason: Worsening of condition. snw
[2018-02-26 21:32] VITALS: BP 144/63; TEMP 97.7; O2SAT 97
== END 2018-02-26 21:09 | disposition home or self-care (01) ==
LOC: ER 19:18
DX: S90.31XA Contusion of right foot, initial encounter (principal); L03.031 Cellulitis of right toe; E11.9 Type 2 diabetes mellitus without complications; I10 Essential (primary) hypertension; E78.00 Pure hypercholesterolemia, unspecified; F17.210 Nicotine dependence, cigarettes, uncomplicated; X58.XXXA Exposure to other specified factors, initial encounter; Y93.9 Activity, unspecified; Y92.9 Unspecified place or not applicable; Y99.9 Unspecified external cause status; Z79.4 Long term (current) use of insulin; Z91.018 Allergy to other foods; Z23 Encounter for immunization
CPT/HCPCS: 90714; 99283

== ENCOUNTER 2018-04-15 18:46 | Emergency (ER) | payer MEDICARE ==
--- OUTSIDE RECORDS SUMMARY | 2018-04-15 18:48 | XMS REPORT | Clinical Summary ---
:1965 Author Organization [facility] Address [address] [place] [address] Phone Care Team Providers Name Role Phone [...] 06/24/2017 Anesthesia Event Sly Malloy MD after 04/14/2017 Social History Tobacco Use Types Packs/Day Years [...] Trigger finger of left CDT thumb after 04/14/2017 Results POC-Glucose meter (06/25/2017 2:32 PM)Only the most recent of2 resultswithin the time period is included. Component Value Ref Range POC-Glucose Meter 200 (H)Comment: TESTED AT [address] 70 - 110 mg/[place] [address] Specimen Performing Laboratory Blood [facility] [address] [address] ECG 12 lead (06/25/2017 1:04 PM) Specimen Performing Laboratory GE MUSE Narrative Ventricular Rate 76 BPM Atrial Rate 76 BPM P-R Interval 156 ms QRS Duration 86 ms Q-T Interval 382 ms QTC Calculation(Bazett) 429 ms P [place] 7 degrees R [place] 59 degrees T [place] 28 degrees Normal sinus rhythm Normal ECG No previous ECGs available Confirmed by MD NASSAR CHUNG-SHIN ([id number]) on 07/06/2017 10:28:29 AM Procedure Note Interface, External Ris In - 07/06/2017 10:28 AM CDT Ventricular Rate 76 BPM Atrial Rate 76 BPM P-R Interval 156 ms QRS Duration 86 ms Q-T Interval 382 ms QTC Calculation(Bazett) 429 ms P [place] 7 degrees R [place] 59 degrees T [place] 28 degrees Normal sinus rhythm Normal ECG [...] PATIENTS. Specimen Performing Laboratory Blood - Arm, [address] [address] Glucose (06/25/2017 11:38 AM) Component Value Ref Range Glucose 353 (H) 70 - 105 mg/dL Specimen Performing Laboratory Blood - Arm, [address] [address] Electrolytes (06/25/2017 11:38 AM) Component Value Ref Range Sodium 136 136 - 145 meq/L Potassium 5.4 (H) 3.5 - 5.1 meq/L Chloride 102 98 - 107 meq/L CO2 25 22 - 29 meq/L Specimen Performing Laboratory Blood - Arm, [address] [address] POC-Hemoglobin meter (06/25/2017 11:34 AM) Component Value Ref Range POC-Hemoglobin Meter 12.1Comment: TESTED AT [address] 12.0 - 15.0 g/ dL [facility] [id number] Specimen Performing Laboratory Blood [address] [address] POCT , urine (06/25/2017 10:56 AM) Component Value Ref Range Test Urine, POC Negative Control line present?, POC Yes Background clear?, POC Yes UPT Cassette Lot #, POC [id number] UPT [employer]ette Expiration Date, POC 11/03/18 Specimen Performing Laboratory Urine after 04/14/2017
[2018-04-15] MEDS ORDERED: INSULIN -REGULAR HUMAN 50 UNIT/0.5 ML ML ONE (19:24)
[2018-04-15] MEDS ORDERED: NA CHLORIDE 0.9% 500 ML ONE (19:24)
[2018-04-15 19:32] LABS: Absolute Lymphocytes (CBC) 2.1 K/uL (0.7-4.9); Absolute Monocytes 0.6 K/uL (0.1-1.3); Absolute Neutrophil 6.1 K/uL (1.8-8.0); Basophils % 1.3 % (0-1.3); Eosinophils % 3.9 % (0-4.4); Hematocrit 37.6 % (36.0-45.0); Lymphocytes % 22.3 % (15.3-44.8); MCH 27.2 pg (27.0-35.0); MCV 81.7 fL (80-100); MPV 9.3 fL (7.6-11.3); Monocytes % 6.8 % (3.3-12.3)
--- OUTSIDE RECORDS SUMMARY | 2018-04-15 19:45 | XMS REPORT | Continuity of Care Document ---
:1965 Author Organization Interface Problems Problem Status Onset Classification Date Comments Source Date Reported PAIN IN Active 08/13/20 [facility] ABDOMEN/NAUSEA/TI Medical GHTENESS IN [facility] Center BDDC/GASTROESOPHA Active 07/24/20 [facility] GEAL REFLUX [address] [place] [address] DISEASE Center VOMITING Active 07/11/[address] GASTROPARESIS Active 07/11/[address] CHEST PAIN Active 04/02/[address] Center R/O ACS Active 04/02/[address] HYPERGLYCEMIA Active 03/06/20 [facility] DEHYDRATION [address] [place] [address] GASTROPARESIS Center SOB/CHEST PAIN Active 03/06/[address] NASEAU Active 01/11/[address] N/V Active 11/29/[address] VOMITTING, Active 11/29/19 [facility] DIABETIC, HEART [address] [place] [address] PT Center NAUSEA, VOMITTING Active 11/17/[address] ACS R/O AND Active 11/17/19 [facility] PERSISTANT N/V [address] [place] [address] MRSA<sup>1, Active 10/23/19 Problem 11/19/2012 [facility]Problem [facility] </sup><sup>2</sup 13 added by Medical > Discern Center Expert. MRSA<sup>1, 2, 3, Active 10/23/19 Problem 08/15/2013 [facility] 4</sup> 13 added by Medical Discern Center Expert. MRSA<sup>1, Active 10/23/19 Problem 04/05/2013 4Problem [facility] </sup><sup>2, 13 added by Medical </sup><sup>3, Discern Center </sup><sup>4</sup Expert. 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 Problem 08/15/2013 [facility] infarction [address] [place] [address] [place] - Myocardial Resolved 10/22/19 Problem 04/05/2013 [facility] infarction [address] [place] [address] DSU/ REFLUX Active 06/13/[address] MORBID OBESITY Active 01/19/[address] Acid reflux Resolved Problem 04/05/2013 [facility] Anemia Resolved Problem 04/05/2013 [facility] Anxiety Resolved Problem 04/05/2013 [facility] Arthritis Resolved Problem 04/05/2013 [facility] Depression Resolved Problem 04/05/2013 [facility] Diabetes mellitus Resolved Problem 04/05/[address] Edema of lower Resolved Problem 04/05/2013 [facility] Fibromyalgia Resolved Problem 04/05/2013 [facility] Hyperlipidemia Resolved Problem 04/05/2013 [facility] Hypertension Resolved Problem 04/05/2013 [facility] Acid reflux Resolved Problem 08/15/2013 [facility] Anemia Resolved Problem 08/15/2013 [facility] Anxiety Resolved Problem 08/15/2013 [facility] Arthritis Resolved Problem 08/15/2013 [facility] Depression Resolved Problem 08/15/2013 [facility] Diabetes mellitus Resolved Problem 08/15/[address] Edema of lower Resolved Problem 08/15/2013 [facility] Fibromyalgia Resolved Problem 08/15/2013 [facility] Gastric ulcer Resolved Problem 08/15/2013 [facility] Hyperlipidemia Resolved Problem 08/15/2013 [facility] Hypertension Resolved Problem 08/15/2013 [facility] Neuropathy Resolved Problem 08/15/2013 [facility] Gastric ulcer Resolved Problem 04/05/2013 [facility] Neuropathy Resolved Problem 04/05/2013 [facility] MORBID OBESITY Active [facility] CHEST PAIN NOS Active [facility] NAUSEA WITH Active [facility] VOMITING [facility] OTHER GENERAL Active [facility] Medications Medication Details Route Status Patient Ordering Order Source Instructions Provider Date Zofran 4 mg 4 mg=1 tab, PO, Active De La Garza [facility] oral tablet BID, # 10 tab, 0 2012 Medical Refill(s) Center Reglan 10 mg 10 mg=1 tab, PO, Active [facility] 08/13[facility] oral tablet QID, # 40 tab, 0 2012 Medical Refill(s) Center IDS med 5 mg, 1 mL, Inactive Ruggiero [facility] Rate: 30 ml/hr, 2012 Medical Infuse over: 2 Center minutes, Route: IV, Total Volume: 1, Stop date: 08/13/13 16:00:00 NS (Bolus) IV 1,000 mL, Rate: Inactive De La Garza [place] 1,000 mL 1,000 ml/hr, 2012 Medical Infuse over: 1 Center hr, Route: IV, Dosing Weight 81.818 kg, Total Volume: 1,000, Priority: STAT, Start date: 08/13/13 13:56:00, Duration: 1 doses or times, Stop date: 08/13/13 14:55:00, Bolus DoseBolus Dose Phenergan 25 mg, 1 mL, Inactive De La Garza [facility] Route: IVPB, 2012 Medical Drug form: INJ, Center ONCE, Dosing Weight 81.818, kg, Priority: STAT, Start date: 08/13/13 13:17:00, Stop date: 08/13/13 13:17:00Do not give IV push. (Same as: Phenergan) Zofran 4 mg, 2 mL, Inactive De La Garza [facility] Route: IVP, Drug 2012 Medical form: INJ, ONCE, Center Dosing Weight 81.818, kg, Priority: STAT, Start date: 08/13/13 12:41:00, Stop date: 08/13/13 12:41:00(Same as: Zofran) morphine 4 mg, 1 mL, Inactive De La Garza [facility] Sulfate Route: IVP, Drug 2012 Medical form: INJ, ONCE, Center Dosing Weight 81.818, kg, Priority: STAT, Start date: 08/13/13 12:40:00, Stop date: 08/13/13 12:40:00(Same as:MORPhine Sulfate) Sodium Chloride 1,000 mL, Rate: Inactive [place] 0.9% (Bolus) IV 1,000 ml/hr, 2012 Medical 1,000 mL Infuse over: 1 Center hr, Route: IV, Dosing Weight 81.818 kg, Total Volume: 1,000, Priority: STAT, Start date: 08/13/13 11:52:00, Duration: 1 doses or times, Stop date: 08/13/13 12:51:00, Bolus DoseBolus Dose normal saline 1,000 mL, Rate: Inactive Adolfo [place] 0.9% IV 1,000 500 ml/hr, 2013 Medical mL Infuse over: 2 Center hr, Route: IV, Dosing Weight 86.364 kg, Total Volume: 1,000, Start date: 07/14/13 14:02:00, Duration: 4 hr, Stop date: 07/14/13 18:01:00 Reglan 10 mg 10 mg, 1 tab, Inactive [facility] oral tablet Route: PO, Drug 2012 Medical form: TAB, Center TID-Before Meals, Dosing Weight 86.364, kg, Start date: 07/14/13 11:30:00, Duration: 30 day, Stop date: 08/13/13 7:30:00(Same as: Reglan) Take 30 min before meals Levemir 15 unit, 0.15 No Longer [facility] mL, Route: Active 2012 Medical SUB-Q, Drug Center form: INJ, BID, Dosing Weight 86.364, kg, Start date: 07/13/13 21:00:00, Duration: 30 day, Stop date: 08/12/13 9:00:00Same as Levemir "single patient use only" pneumococcal 0.5 ml, Route: No Longer [facility] 07/13[facility] 23-valent IM, Drug Form: Active 2012 Medical vaccine INJ, Start date: [place] 07/13/13 9:00:00, Stop date: 07/13/13 9:00:00 influenza virus 0.5 ml, Route: No Longer [facility] 07/13[facility] vaccine, IM, Drug Form: Active 2012 Medical inactivated SUSP, Start Center date: 07/13/13 9:00:00, Stop date: 07/13/13 9:00:00 lisinopril 20 mg, 1 tab, No Longer [facility] 07/13[facility] Route: PO, Drug Active 2012 Medical form: TAB, Center Daily, Dosing Weight 86.364, kg, Start date: 07/13/13 9:00:00, Duration: 30 day, Stop date: 08/11/13 9:00:00(Same as: Prinivil, Zestril) metoprolol 50 mg, Route: No Longer [facility] tartrate PO, Drug form: Active 2012 Medical TAB, Daily, Center Dosing Weight 86.364, kg, Start date: 07/13/13 9:00:00, Duration: 30 day, Stop date: 08/11/13 9:00:00 Lyrica 150 mg, 2 cap, No Longer [facility] Route: PO, Drug Active 2012 Medical form: CAP, BID, Center Dosing Weight 86.364, kg, Start date: 07/13/13 9:00:00, Duration: 30 day, Stop date: 08/11/13 17:00:00(Same as: Lyrica) potassium 20 mEq, 1 tab, No Longer [facility] [place] chloride Route: PO, Drug Active 2012 Medical form: ERTAB, Center Daily, Dosing Weight 86.364, kg, Start date: 07/13/13 9:00:00, Duration: 30 day, Stop date: 08/11/13 9:00:00(Same as: K-Dur 20) "Do Not Crush" With food and full glass of water Effient 10 mg, 1 tab, No Longer [facility] Route: PO, Drug Active 2012 Medical form: TAB, Center Daily, Dosing Weight 86.364, kg, Start date: 07/13/13 9:00:00, Duration: 30 day, Stop date: 08/11/13 9:00:00Same as Effient For patients 60kg, without history of TIA/Ischemic stroke and without likely bypass surgery Protonix 40 mg, 1 tab, No Longer [facility] [place] Route: PO, Drug Active 2012 Medical form: ECTAB, Center BID-Before Meals, Dosing Weight 86.364, kg, Start date: 07/13/13 9:00:00, Stop date: 08/11/13 16:30:00Tablet should not be chewed or crushed. (Same as: Protonix) meloxicam 7.5 mg, Route: No Longer [facility] [place] PO, Drug form: Active 2012 Medical TAB, BID, Dosing Center Weight 86.364, kg, Start date: 07/13/13 9:00:00, Duration: 30 day, Stop date: 08/11/13 17:00:00 magnesium oxide 400 mg, 1 tab, No Longer [facility] Route: PO, Drug Active 2012 Medical form: TAB, Center Daily, Dosing Weight 86.364, kg, Start date: 07/13/13 9:00:00, Duration: 30 day, Stop date: 08/11/13 9:00:00(Same as: Mag-Ox 400) Magnesium oxide [id number] elemental magnesium Dose=____mg magnesium oxide (___mg elemental magnesium) furosemide 40 40 mg, 1 tab, No Longer [facility] mg oral tablet Route: PO, Drug Active 2012 Medical form: TAB, Center Daily, Dosing Weight 86.364, kg, Start date: 07/13/13 9:00:00, Duration: 30 day, Stop date: 08/11/13 9:00:00(Same as: Lasix) May cause GI upset. Give with food or milk. ferrous sulfate 325 mg, 1 tab, No Longer [facility] [place] Route: PO, Drug Active 2012 Medical form: ECTAB, Center TID, Dosing Weight 86.364, kg, Start date: 07/13/13 9:00:00, Duration: 30 day, Stop date: 08/11/13 17:00:00Give with food. "Do Not Crush" clonazepam 0.5 mg, 1 tab, No Longer [facility] Route: PO, Drug Active 2012 Medical form: TAB, TID, Center Dosing Weight 86.364, kg, Start date: 07/13/13 9:00:00, Duration: 30 day, Stop date: 08/11/13 17:00:00(Same As: Klonopin) Insulin regular 5 unit, 0.05 mL, No Longer [facility] Route: SUB-Q, Active 2012 Medical Drug form: SOLN, Center TID-Before Meals, Dosing Weight 86.364, kg, Start date: 07/13/13 7:30:00, Duration: 30 day, Stop date: 08/11/13 16:30:00(Same as: Humulin R) Roll in palms of hands gently; Do not shake vigorously. "single patient use only" (Restricted to patients requiring a dose > 60 units) Stable for 28 days at room temperature Expires in days from Da te Reglan 10 mg, 2 mL, No Longer [facility] Route: IVP, Drug Active 2012 Medical form: INJ, Q6H, Center Dosing Weight 86.364, kg, Start date: 07/13/13 0:00:00, Duration: 30 day, Stop date: 08/11/13 18:00:00(Same as: Reglan) normal saline 1,000 mL, Rate: No Longer [facility] 0.9% IV 1,000 200 ml/hr, Active 2012 Medical mL Infuse over: 5 Center hr, Route: IV, Dosing Weight 86.364 kg, Total Volume: 1,000, Start date: 07/12/13 21:08:00, Duration: 3 doses or times, Stop date: 07/13/13 12:07:00 metoprolol 50 mg, 1 tab, No Longer [facility] tartrate Route: PO, Drug Active 2012 Medical form: TAB, Q12H, Center Dosing Weight 86.364, kg, Start date: 07/12/13 21:00:00, Duration: 30 day, Stop date: 08/11/13 9:00:00(Same as: Lopressor) Levemir 12 unit, 0.12 No Longer [facility] mL, Route: Active 2012 Medical SUB-Q, Drug Center form: INJ, BID, Dosing Weight 86.364, kg, Start date: 07/12/13 21:00:00, Duration: 30 day, Stop date: 08/11/13 9:00:00Same as Levemir "single patient use only" Cymbalta 120 mg, 2 cap, No Longer [facility] Route: PO, Drug Active 2012 Medical form: DR, [place] Bedtime, Dosing Weight 86.364, kg, Start date: 07/12/13 21:00:00, Duration: 30 day, Stop date: 08/10/13 21:00:00Non Formulary Drug (Same as: Cymbalta) (Do Not Crush) ProAir HFA 90 2 puff, Route: No Longer [facility] mcg/inh INHALATION, Drug Active 2012 Medical inhalation Form: AERO/A, Center aerosol with Dosing Weight adapter 86.364, kg, QID, PRN Shortness of breath, Start date: 07/12/13 20:09:00, Duration: 30 day, Stop date: 08/11/13 20:08:00Albutero l 90 microgram/inh 8gm HFA Same as: VentAlessio marrerotil aspirin 81 mg 81 mg, 1 tab, No Longer [facility] [place] tablet, enteric Route: PO, Drug Active 2012 Medical coated form: ECTAB, [place] Daily, Dosing Weight 86.364, kg, Start date: 07/12/13 20:00:00, Duration: 30 day, Stop date: 08/11/13 9:00:00Do not crush or chew. (Same As: Ecotrin) glucagon 1 mg, Route: IM, No Longer [facility] Drug form: Active 2012 Medical PDR/INJ, PRN, Center Dosing Weight 86.364, kg, PRN Blood Glucose Results, Start date: 07/12/13 18:26:00, Duration: 30 day, Stop date: 08/11/13 18:25:00 Dextrose 50% 12.5 gm, 25 mL, No Longer [facility] Syringe Route: IVP, Drug Active 2012 Medical Form: INJ, Center Dosing Weight 86.364, kg, PRN, PRN Blood Glucose Results, Start date: 07/12/13 18:26:00, Duration: 30 day, Stop date: 08/11/13 18:25:00 insulin aspart 4 unit, 0.04 mL, No Longer [facility] Route: SUB-Q, Active 2012 Medical Drug form: SOLN, [place] TID-Before Meals, Dosing Weight 86.364, kg, PRN Blood Glucose Results, Start date: 07/12/13 18:26:00, Duration: 30 day, Stop date: 08/11/13 18:25:00Roll in palms of hands gently; Do not shake vigorously. (Same as: NovoLog) "single patient use only" Stable for 28 days at room temperature. Expires in days from Da te tramadol 50 mg 50 mg, 1 tab, No Longer [facility] oral tablet Route: PO, Drug Active 2012 Medical form: TAB, Q4H, Center Dosing Weight 86.364, kg, PRN as needed for pain, Start date: 07/12/13 18:24:00, Duration: 30 day, Stop date: 08/11/13 18:23:00Not to exceed 400mg/day. (Same As: Ultram) acetaminophen-h 1 tab, Route: No Longer [facility] [place] ydrocodone 325 PO, Drug Form: Active 2012 Medical mg-5 mg oral TAB, Dosing Center tablet Weight 86.364, kg, Q4H, PRN Pain, Start date: 07/12/13 18:23:00, Duration: 30 day, Stop date: 08/11/13 18:22:00(Same as: [place] 325/5) Do not exceed 4gm/day of acetaminophen. Flexeril 10 mg, 1 tab, No Longer [facility] Route: PO, Drug Active 2012 Medical form: TAB, TID, Center Dosing Weight 86.364, kg, PRN Spasm, Start date: 07/12/13 18:23:00, Duration: 30 day, Stop date: 08/11/13 18:22:00(Same As: Flexeril) benzonatate 100 mg, 1 cap, No Longer [facility] Route: PO, Drug Active 2012 Medical form: CAP, TID, Center Dosing Weight 86.364, kg, PRN as needed for cough, Start date: 07/12/13 18:23:00, Duration: 30 day, Stop date: 08/11/13 18:22:00(Same As: Oleksandr Francis) "Do Not Crush" Saline Flush 5 ml, Route: No Longer [facility] 0.9% IVP, Drug Form: Active 2012 Medical INJ, Dosing Center Weight 86.364, kg, PRN, PRN Line Flush, Start date: 07/12/13 18:22:00, Duration: 30 day, Stop date: 08/11/13 18:21:00(Same as: BD Posiflush) ondansetron 4 mg, 2 mL, No Longer [facility] Route: IVP, Drug Active 2012 Medical form: INJ, Q8H, Center Dosing Weight 86.364, kg, PRN Nausea & Vomiting, Start date: 07/12/13 18:22:00, Duration: 30 day, Stop date: 08/11/13 18:21:00(Same as: Zofran) aspirin 81 mg 81 mg, 1 tab, Active [facility] tablet, enteric PO, Daily, 0 2012 Medical coated tab, Center Substitution Allowed, ECTAB Klor-Con M20 20 mEq, 1 tab, No Longer [facility] oral tablet, PO, Daily, 180 Active 2012 Medical extended tab, Center release Substitution Allowed, ERTAB furosemide 40 40 mg, 1 tab, No Longer [facility] mg oral tablet PO, Daily, 30 Active 2012 Medical tab, Center Substitution Allowed, TAB benzonatate 100 PO, TID, PRN, 1 Active [facility] mg oral capsule to 2 tabs, prn, 2012 Medical Substitution Center Allowed1 to 2 tabs metoprolol 50 mg, 1 tab, No Longer [facility] tartrate 50 mg PO, Daily, 180 Active 2012 Medical oral tablet tab, Center Substitution Allowed, TAB Reglan 10 mg, 2 mL, Inactive [facility] 07/12[facility] Route: IVP, Drug 2012 Medical form: INJ, ONCE, Center Dosing Weight 86.364, kg, Priority: STAT, Start date: 07/12/13 12:12:00, Stop date: 07/12/13 12:12:00(Same as: Reglan) Zofran 4 mg, Route: Inactive [facility] 07/12[facility] IVP, Drug form: 2012 Medical INJ, ONCE, Center Dosing Weight 86.364, kg, Priority: STAT, Start date: 07/12/13 10:52:00, Stop date: 07/12/13 10:52:00 morphine 4 mg, Route: Inactive [facility] 07/12[facility] Sulfate IVP, Drug form: 2012 Medical INJ, ONCE, Center Dosing Weight 86.364, kg, Priority: STAT, Start date: 07/12/13 10:51:00, Stop date: 07/12/13 10:51:00 Zofran 4 mg, 2 mL, Inactive [facility] 07/12[facility] Route: IVP, Drug 2012 Medical form: INJ, ONCE, Center Dosing Weight 86.364, kg, Priority: STAT, Start date: 07/12/13 10:20:00, Stop date: 07/12/13 10:20:00(Same as: Zofran) NS (Bolus) IV 1,000 mL, Rate: Inactive [facility] 1000 mL 1,000 ml/hr, 2012 Medical Infuse over: 1 Center hr, Route: IV, Dosing Weight 86.364 kg, Total Volume: 1,000, Priority: STAT, Start date: 07/12/13 10:06:00, Duration: 1 doses or times, Stop date: 07/12/13 11:05:00, Bolus DoseBolus Dose [place] 5/325 1 tab, Route: Inactive [facility] oral tablet PO, Dosing 2012 Medical Weight 86.364, Center kg, ONCE, Start date: 07/12/13 10:05:00, Stop date: 07/12/13 10:05:00 morphine 4 mg, 1 mL, Inactive [facility] Sulfate Route: IVP, Drug 2012 Medical form: INJ, ONCE, Center Dosing Weight 86.364, kg, Priority: STAT, Start date: 07/12/13 9:32:00, Stop date: 07/12/13 9:32:00(Same as:MORPhine Sulfate) Zofran ODT 8 mg, Route: PO, Inactive [facility] Drug form: 2012 Medical TABDIS, ONCE, Center Dosing Weight 86.364, kg, Priority: STAT, Start date: 07/12/13 6:56:00, Stop date: 07/12/13 6:56:00 Levemir 10 unit, 0.1 mL, Inactive [place] [facility] Route: SUB-Q, 2012 Medical Drug form: INJ, Center ONCE, Dosing Weight 86.364, kg, Start date: 07/12/13 4:20:00, Stop date: 07/12/13 4:20:00Same as Levemir "single patient use only" Omnipaque 100 mL, Route: Inactive [place] [facility] 350mg/ml IVP, Drug Form: 2012 Medical SOLN, Dosing Center Weight 86.364, kg, ONCALL, STAT, Start date: 07/12/13 4:18:00, Duration: 1 doses or times, Dose=2.2ml/kg, Max [id number] -- "To be infused by Radiology Staff ONLY"Dose=2.2ml/ kg, Max vplu=[id number] -- "To be infused by Radiology Staff ONLY"(Same as:Omnipaque 350). Sodium Chloride 1,000 mL, Rate: Inactive [place] [facility] 0.9% (Bolus) IV 1,000 ml/hr, 2012 Medical 1,000 mL Infuse over: 1 Center hr, Route: IV, Dosing Weight 86.364 kg, Total Volume: 1,000, Priority: STAT, Start date: 07/12/13 4:06:00, Duration: 1 doses or times, Stop date: 07/12/13 5:05:00, Bolus DoseBolus Dose Sodium Chloride 1,000 mL, Rate: Inactive [place] [facility] 0.9% (Bolus) IV 1,000 ml/hr, 2012 Medical 1,000 mL Infuse over: 1 Center hr, Route: IV, Dosing Weight 86.364 kg, Total Volume: 1,000, Priority: STAT, Start date: 07/12/13 3:39:00, Duration: 1 doses or times, Stop date: 07/12/13 4:38:00, Bolus DoseBolus Dose Phenergan 12.5 mg, 0.5 mL, Inactive [place] [facility] Route: IVPB, 2012 Medical Drug form: INJ, Center ONCE, Dosing Weight 86.364, kg, Priority: STAT, Start date: 07/12/13 3:38:00, Stop date: 07/12/13 3:38:00Do not give IV push. (Same as: Phenergan) GI cocktail 30 mL, Route: Inactive [place] [facility] PO, Drug Form: 2012 Medical SUSP, Dosing Center Weight 86.364, kg, ONCE, STAT, Start date: 07/12/13 3:37:00, Stop date: 07/12/13 3:37:00G.I. Cocktail=antacid with simethicone 22.5 mL - lidocaine viscous 7.5 mL aspirin 325 mg 325 mg, 1 tab, PO No Longer [facility] tablet, enteric Route: PO, Drug Active 2012 Medical coated form: ECTAB, Center Daily, Dosing Weight 90, kg, Start date: 04/03/13 9:00:00, Duration: 30 day, Stop date: 05/02/13 9:00:00 Effient 10 mg, 1 tab, PO No Longer [facility] Route: PO, Drug Active 2012 Medical form: TAB, Center Daily, Dosing Weight 90, kg, Start date: 04/03/13 9:00:00, Duration: 30 day, Stop date: 05/02/13 9:00:00 Lyrica 150 mg, 2 cap, PO No Longer [facility] Route: PO, Drug Active 2012 Medical form: CAP, BID, Center Dosing Weight 90, kg, Start date: 04/03/13 9:00:00, Duration: 30 day, Stop date: 05/02/13 17:00:00 Protonix 40 mg, 1 tab, PO No Longer [facility] Route: PO, Drug Active 2012 Medical form: ECTAB, Center BID, Dosing Weight 90, kg, Start date: 04/03/13 9:00:00, Duration: 30 day, Stop date: 05/02/13 17:00:00 metoclopramide 10 mg, 1 tab, PO No Longer [facility] 10 mg oral Route: PO, Drug Active 2012 Medical tablet form: TAB, TID, Center Dosing Weight 90, kg, Start date: 04/03/13 9:00:00, Duration: 30 day, Stop date: 05/02/13 17:00:00 meloxicam 7.5 mg, 1 tab, PO No Longer [facility] Route: PO, Drug Active 2012 Medical form: TAB, BID, Center Dosing Weight 90, kg, Priority: Routine, Start date: 04/03/13 9:00:00, Duration: 30 day, Stop date: 05/02/13 17:00:00 lisinopril 20 mg, Route: PO No Longer [facility] PO, Drug form: Active 2012 Medical TAB, Daily, Center Dosing Weight 90, kg, Start date: 04/03/13 9:00:00, Duration: 30 day, Stop date: 05/02/13 9:00:00 Levemir 12 unit, Route: SUB-Q No Longer [facility] SUB-Q, BID, Active 2012 Medical Dosing Weight Center 90, kg, Start date: 04/03/13 9:00:00, Duration: 30 day, Stop date: 05/02/13 17:00:00 ferrous sulfate 325 mg, 1 tab, PO No Longer [facility] Route: PO, Drug Active 2012 Medical form: ECTAB, Center TID, Dosing Weight 90, kg, Start date: 04/03/13 9:00:00, Duration: 30 day, Stop date: 05/02/13 17:00:00 clonazepam 0.5 mg, 1 tab, PO No Longer [facility] Route: PO, Drug Active 2012 Medical form: TAB, TID, Center Dosing Weight 90, kg, Start date: 04/03/13 9:00:00, Duration: 30 day, Stop date: 05/02/13 17:00:00 NovoLog 6 unit, 0.06 mL, SUB-Q No Longer [facility] Route: SUB-Q, Active 2012 Medical Drug form: SOLN, Center TID-Before Meals, Dosing Weight 90, kg, Start date: 04/03/13 7:30:00, Duration: 30 day, Stop date: 05/02/13 16:30:00 heparin 5000 5,000 unit, 1 SUB-Q No Longer [facility] units/mL mL, Route: Active 2012 Medical injectable SUB-Q, Drug Center solution form: INJ, Q8H, Dosing Weight 90, kg, Start date: 04/03/13 0:00:00, Duration: 30 day, Stop date: 05/02/13 16:00:00 Cymbalta 120 mg, 2 cap, PO No Longer [facility] Route: PO, Drug Active 2012 Medical form: DRC, Center Bedtime, Dosing Weight 90, kg, Start date: 04/02/13 23:30:00, Duration: 30 day, Stop date: 05/02/13 21:00:00 Zocor 40 mg, 1 tab, PO No Longer [facility] Route: PO, Drug Active 2012 Medical form: TAB, Center Bedtime, Dosing Weight 90, kg, Start date: 04/02/13 21:00:00, Duration: 30 day, Stop date: 05/01/13 21:00:00 Cymbalta 60 mg, 1 cap, PO No Longer [facility] Route: PO, Drug Active 2012 Medical form: DRC, Center Bedtime, Dosing Weight 90, kg, Start date: 04/02/13 21:00:00, Duration: 30 day, Stop date: 05/01/13 21:00:00 magnesium oxide 400 mg, 1 tab, PO No Longer [facility] Route: PO, Drug Active 2012 Medical form: TAB, Center Daily, Dosing Weight 90, kg, Priority: NOW, Start date: 04/02/13 20:45:00, Duration: 30 day, Stop date: 05/02/13 9:00:00 Levemir 12 unit, 0.12 SUB-Q No Longer [facility] mL, Route: Active 2012 Medical SUB-Q, Drug Center form: INJ, BID, Dosing Weight 90, kg, Start date: 04/02/13 20:45:00, Duration: 30 day, Stop date: 05/02/13 17:00:00 hydrALAZINE 10 mg, 0.5 mL, IVP No Longer [facility] Route: IVP, Drug Active 2012 Medical form: INJ, Q4H, Center Dosing Weight 90, kg, PRN Hypertension, Start date: 04/02/13 20:37:00, Duration: 30 day, Stop date: 05/02/13 20:36:00 lisinopril 20 mg, 1 tab, PO No Longer [facility] Route: PO, Drug Active 2012 Medical form: TAB, Center Daily, Dosing Weight 90, kg, Start date: 04/02/13 20:30:00, Duration: 30 day, Stop date: 05/02/13 9:00:00 metoprolol 12.5 mg, 1 ea, PO No Longer [facility] tartrate Route: PO, Drug Active 2012 Medical form: TAB, BID, Center Dosing Weight 90, kg, Start date: 04/02/13 20:30:00, Duration: 30 day, Stop date: 05/02/13 17:00:00 insulin aspart 8 unit, 0.08 mL, SUB-Q No Longer [facility] Route: SUB-Q, Active 2012 Medical Drug form: SOLN, Center TID-Before Meals, Dosing Weight 90, kg, PRN Blood Glucose Results, Start date: 04/02/13 20:30:00, Duration: 30 day, Stop date: 05/02/13 20:29:00 glucagon 1 mg, Route: IM, IM No Longer [facility] Drug form: Active 2012 Medical PDR/INJ, PRN, Center Dosing Weight 90, kg, PRN Blood Glucose Results, Start date: 04/02/13 20:30:00, Duration: 30 day, Stop date: 05/02/13 20:29:00 Dextrose 50% 25 gm, 50 mL, IVP No Longer [facility] Syringe Route: IVP, Drug Active 2012 Medical Form: INJ, Center Dosing Weight 90, kg, PRN, PRN Blood Glucose Results, Start date: 04/02/13 20:30:00, Duration: 30 day, Stop date: 05/02/13 20:29:00 Insulin regular 8 unit, Route: SUB-Q No Longer [facility] SUB-Q, Active 2012 Medical TID-Before Center Meals, Dosing Weight 90, kg, PRN Blood Glucose Results, Start date: 04/02/13 20:29:00, Duration: 30 day, Stop date: 05/02/13 20:28:00 glucagon 1 mg, Route: IM, IM No Longer [facility] PRN, Dosing Active 2012 Medical Weight 90, kg, Center PRN Blood Glucose Results, Start date: 04/02/13 20:29:00, Duration: 30 day, Stop date: 05/02/13 20:28:00 Dextrose 50% 50 mL, Route: IVP No Longer [facility] Syringe IVP, Dosing Active 2012 Medical Weight 90, kg, Center PRN, PRN Blood Glucose Results, Start date: 04/02/13 20:29:00, Duration: 30 day, Stop date: 05/02/13 20:28:00 Zofran 4 mg, 2 mL, IV No Longer [facility] Route: IV, Drug Active 2012 Medical form: INJ, Q8H, Center Dosing Weight 90, kg, PRN Nausea, Start date: 04/02/13 20:29:00, Duration: 30 day, Stop date: 05/02/13 20:28:00 Maalox Advanced 30 mL, Route: PO No Longer [facility] Regular PO, Drug Form: Active 2012 Medical Strength SUSP SUSP, Dosing Center Weight 90, kg, QID, PRN Indigestion, Start date: 04/02/13 20:28:00, Duration: 30 day, Stop date: 05/02/13 20:27:00 Flexeril 10 mg, 1 tab, PO No Longer [facility] Route: PO, Drug Active 2012 Medical form: TAB, TID, Center Dosing Weight 90, kg, PRN Spasm, Start date: 04/02/13 20:22:00, Duration: 30 day, Stop date: 05/02/13 20:21:00 acetaminophen-h 1 tab, Route: PO No Longer [facility] ydrocodone 325 PO, Drug Form: Active 2012 Medical mg-5 mg oral TAB, Dosing Center tablet Weight 90, kg, Q4H, PRN Pain, Start date: 04/02/13 20:22:00, Duration: 30 day, Stop date: 05/02/13 20:21:00 Phenergan 12.5 mg, 0.5 mL, IVPB No Longer [facility] Route: IVPB, Active 2012 Medical Drug form: INJ, Center ONCE, Dosing Weight 90, kg, Start date: 04/02/13 20:11:00, Stop date: 04/02/13 20:11:00 morphine 4 mg, 1 mL, IVP No Longer [facility] Sulfate Route: IVP, Drug Active 2012 Medical form: INJ, ONCE, Center Dosing Weight 90, kg, Start date: 04/02/13 20:10:00, Stop date: 04/02/13 20:10:00 Phenergan 12.5 mg, 0.5 mL, IVPB No Longer [facility] Route: IVPB, Active 2012 Medical Drug form: INJ, Center ONCE, Dosing Weight 90, kg, Priority: STAT, Start date: 04/02/13 17:11:00, Stop date: 04/02/13 17:11:00 Zofran 4 mg, 2 mL, IVP No Longer [facility] Route: IVP, Drug Active 2012 Medical form: INJ, ONCE, Center Dosing Weight 90, kg, Priority: STAT, Start date: 04/02/13 16:52:00, Stop date: 04/02/13 16:52:00 nitroglycerin 0.4 mg, 1 tab, SL No Longer [facility] Route: SL, Drug Active 2012 Medical form: TAB, Center Q5Min, Dosing Weight 90, kg, PRN Chest Pain, Priority: STAT, Start date: 04/02/13 16:31:00, Duration: 3 doses or times, Stop date: Limited # of times aspirin 325 mg, 1 tab, PO No Longer [facility] Route: PO, Drug Active 2012 Medical form: ECTAB, Center ONCE, Dosing Weight 90, kg, Priority: STAT, Start date: 04/02/13 16:31:00, Stop date: 04/02/13 16:31:00 morphine 4 mg, 1 mL, IVP No Longer [facility] Sulfate Route: IVP, Drug Active 2012 Medical form: INJ, ONCE, Center Dosing Weight 90, kg, Start date: 04/02/13 16:30:00, Stop date: 04/02/13 16:30:00 erythromycin 1 cap, PO, Q12H, PO Active [facility] [place] 250 mg oral 14 cap, 2012 Medical enteric coated Substitution Center tablet Allowed, ECTAB GI cocktail 30 ml, Route: PO No Longer [facility] PO, Drug Form: Active 2012 Medical SUSP, Dosing Center Weight 90, kg, ONCE, Routine, Start date: 03/08/13 16:26:00, Stop date: 03/08/13 16:26:00 erythromycin 250 mg, 1 cap, PO No Longer [facility] [place] 250 mg oral Route: PO, Drug Active 2012 Medical enteric coated form: ECCAP, Center tablet Q12H, Dosing Weight 90, kg, Start date: 03/08/13 12:00:00, Duration: 30 day, Stop date: 04/07/13 9:00:00 magnesium 2 gm, 50 mL, IVPB No Longer [facility] sulfate Route: IVPB, Active 2012 Medical Drug form: INJ, Center Q2H, Dosing Weight 90, kg, Total Dose=4 gm, Start date: 03/08/13 12:00:00, Duration: 2 doses or times, Stop date: 03/08/13 14:00:00, For Mg=1.5 - 1.7 mg/dLFor Mg=1.5 - 1.7 mg/dL insulin aspart 5 unit, 0.05 mL, SUB-Q No Longer [facility] Route: SUB-Q, Active 2012 Medical Drug form: SOLN, [place] ONCE, Dosing Weight 90, kg, Start date: 03/08/13 3:17:00, Stop date: 03/08/13 3:17:00 Zocor 40 mg, 1 tab, PO No Longer [facility] Route: PO, Drug Active 2012 Medical form: TAB, Center Bedtime, Dosing Weight 90, kg, Start date: 03/07/13 21:00:00, Duration: 30 day, Stop date: 04/05/13 21:00:00 Cymbalta 120 mg, 2 cap, PO No Longer [facility] Route: PO, Drug 2012 Medical form: DRC, Center Bedtime, Dosing Weight 90, kg, Start date: 03/07/13 21:00:00, Duration: 30 day, Stop date: 04/05/13 21:00:00 Levemir 12 unit, 0.12 SUB-Q No Longer [facility] mL, Route: Active 2012 Medical SUB-Q, Drug Center form: INJ, Q12H, Dosing Weight 90, kg, Start date: 03/07/13 21:00:00, Duration: 30 day, Stop date: 04/06/13 9:00:00 insulin aspart 10 unit, 0.1 mL, SUB-Q No Longer [facility] Route: SUB-Q, Active 2012 Medical Drug form: SOLN, Center ONCE, Dosing Weight 90, kg, Start date: 03/07/13 19:16:00, Stop date: 03/07/13 19:16:00 Lyrica 150 mg, 2 cap, PO No Longer [facility] Route: PO, Drug Active 2012 Medical form: CAP, BID, Center Dosing Weight 90, kg, Start date: 03/07/13 17:00:00, Duration: 30 day, Stop date: 04/06/13 9:00:00 Protonix 40 mg, 1 tab, PO No Longer [facility] Route: PO, Drug Active 2012 Medical form: ECTAB, Center BID, Dosing Weight 90, kg, Start date: 03/07/13 17:00:00, Duration: 30 day, Stop date: 04/06/13 9:00:00 meloxicam 7.5 mg, 1 tab, PO No Longer [facility] Route: PO, Drug Active 2012 Medical form: TAB, Center BID-Meals, Dosing Weight 90, kg, Start date: 03/07/13 17:00:00, Duration: 30 day, Stop date: 04/06/13 8:00:00 Flexeril 10 mg, 1 tab, PO No Longer [facility] Route: PO, Drug Active 2012 Medical form: TAB, BID, Center Dosing Weight 90, kg, Start date: 03/07/13 17:00:00, Duration: 30 day, Stop date: 04/06/13 9:00:00 NovoLog FlexPen 6 unit, 0.06 mL, SUB-Q No Longer [facility] Route: SUB-Q, Active 2012 Medical Drug form: SOLN, Center TID-Before Meals, Start date: 03/07/13 16:30:00, Duration: 30 day, Stop date: 04/06/13 11:30:00 Humalog 6 unit, Route: SUB-Q No Longer [facility] SUB-Q, Active 2012 Medical TID-Before Center Meals, Dosing Weight 90, kg, Start date: 03/07/13 16:30:00, Duration: 30 day, Stop date: 04/06/13 11:30:00 heparin 5,000 unit, 1 SUB-Q No Longer [facility] mL, Route: Active 2012 Medical SUB-Q, Drug Center form: INJ, Q8H, Dosing Weight 90, kg, Start date: 03/07/13 16:00:00, Duration: 30 day, Stop date: 04/06/13 8:00:00 Effient 10 mg, 1 tab, PO No Longer [facility] Route: PO, Drug Active 2012 Medical form: TAB, Center Daily, Dosing Weight 90, kg, Start date: 03/07/13 13:30:00, Duration: 30 day, Stop date: 04/06/13 9:00:00 magnesium oxide 400 mg, 1 tab, PO No Longer [facility] Route: PO, Drug Active 2012 Medical form: TAB, Center Daily, Dosing Weight 90, kg, Start date: 03/07/13 13:30:00, Duration: 30 day, Stop date: 04/06/13 9:00:00 lisinopril 20 mg, 1 tab, PO No Longer [facility] Route: PO, Drug Active 2012 Medical form: TAB, Center Daily, Dosing Weight 90, kg, Start date: 03/07/13 13:30:00, Duration: 30 day, Stop date: 04/06/13 9:00:00 Reglan 5 mg, 1 tab, PO No Longer [facility] Route: PO, Drug Active 2012 Medical form: TAB, TID, Center Dosing Weight 90, kg, Start date: 03/07/13 13:00:00, Duration: 30 day, Stop date: 04/06/13 9:00:00 ferrous sulfate 325 mg, 1 tab, PO No Longer [facility] Route: PO, Drug Active 2012 Medical form: ECTAB, Center TID, Dosing Weight 90, kg, Start date: 03/07/13 13:00:00, Duration: 30 day, Stop date: 04/06/13 9:00:00 clonazepam 0.5 mg, 1 tab, PO No Longer [facility] Route: PO, Drug Active 2012 Medical form: TAB, TID, Center Dosing Weight 90, kg, Start date: 03/07/13 13:00:00, Duration: 30 day, Stop date: 04/06/13 9:00:00 NovoLog 6 unit, SUB-Q, SUB-Q No Longer [place] TID-Before Active 2012 Medical Meals, Center Substitution Allowed Levemir 12 unit, SUB-Q, SUB-Q Active [place] BID, 2012 Medical Substitution Center Allowed NS 1,000 mL 1,000 mL, Rate: IV No Longer [facility] [place] 125 ml/hr, Active 2012 Medical Infuse over: 8 Center hr, Route: IV, Dosing Weight 90 kg, Total Volume: 1,000, Start date: 03/07/13 12:19:00, Duration: 30 day, Stop date: 04/06/13 12:18:00 insulin aspart 2 unit, 0.02 mL, SUB-Q No Longer [facility] [place] Route: SUB-Q, Active 2012 Medical Drug form: [facility] TID-Before Meals, Dosing Weight 90, kg, PRN Blood Glucose Results, Start date: 03/07/13 11:55:00, Duration: 30 day, Stop date: 04/06/13 11:54:00 glucagon 1 mg, Route: IM, IM No Longer [facility] [place] Drug form: Active 2012 Medical PDR/INJ, PRN, Center Dosing Weight 90, kg, PRN Blood Glucose Results, Start date: 03/07/13 11:55:00, Duration: 30 day, Stop date: 04/06/13 11:54:00 Dextrose 50% 12.5 gm, 25 mL, IVP No Longer [facility] [place] Syringe Route: IVP, Drug Active 2012 Medical Form: INJ, Center Dosing Weight 90, kg, PRN, PRN Blood Glucose Results, Start date: 03/07/13 11:55:00, Duration: 30 day, Stop date: 04/06/13 11:54:00 Phenergan 12.5 mg, 0.5 mL, IVPB No Longer [facility] [place] Route: IVPB, Active 2012 Medical Drug form: INJ, Center Q4H, Dosing Weight 90, kg, PRN Nausea & Vomiting, Start date: 03/07/13 11:53:00, Duration: 30 day, Stop date: 04/06/13 11:52:00 albuterol 2.49 mg, 3 mL, NEB No Longer [facility] [place] 0.083% Route: NEB, Drug Active 2012 Medical inhalation form: SOLN, Center solution RQ4H, Dosing Weight 90, kg, PRN as needed for wheezing, Start date: 03/07/13 11:53:00, Duration: 30 day, Stop date: 04/06/13 11:52:00 Zofran 4 mg, 2 mL, IVP No Longer [facility] Route: IVP, Drug Active 2012 Medical form: INJ, Q4H, Center Dosing Weight 90, kg, PRN Nausea, Start date: 03/07/13 11:53:00, Duration: 30 day, Stop date: 04/06/13 11:52:00 acetaminophen-h 1 tab, Route: PO No Longer [facility] ydrocodone 325 PO, Drug Form: Active 2013 Medical mg-10 mg oral TAB, Dosing Center tablet Weight 90, kg, Q4H, PRN Pain Score 4-6, Start date: 03/07/13 11:51:00, Duration: 30 day, Stop date: 04/06/13 11:50:00 acetaminophen-h 1 tab, Route: PO No Longer [facility] ydrocodone 325 PO, Drug Form: Active 2013 Medical mg-5 mg oral TAB, Dosing Center tablet Weight 90, kg, Q4H, PRN Pain Score 1-3, Start date: 03/07/13 11:51:00, Duration: 30 day, Stop date: 04/06/13 11:50:00 acetaminophen 650 mg, 2 tab, PO No Longer [facility] Route: PO, Drug Active 2012 Medical form: TAB, Q4H, Center Dosing Weight 90, kg, PRN Pain 1-3/Temp > 100.4 F, Start date: 03/07/13 11:51:00, Duration: 30 day, Stop date: 04/06/13 11:50:00 morphine 2 mg, 1 mL, IVP No Longer [facility] Sulfate Route: IVP, Drug Active 2012 Medical form: INJ, Q4H, Center Dosing Weight 90, kg, PRN Pain Score 7-10, Start date: 03/07/13 11:51:00, Duration: 30 day, Stop date: 04/06/13 11:50:00 docusate 100 mg, 1 cap, PO No Longer [facility] Route: PO, Drug Active 2012 Medical form: CAP, BID, Center Dosing Weight 90, kg, PRN Constipation, Start date: 03/07/13 11:51:00, Duration: 30 day, Stop date: 04/06/13 11:50:00 Levemir 12 unit, 0.12 SUB-Q No Longer [facility] mL, Route: Active 2012 Medical SUB-Q, Drug Center form: INJ, ONCE, Dosing Weight 90, kg, Start date: 03/07/13 6:10:00, Stop date: 03/07/13 6:10:00 lidocaine-epi 1 ml, Route: SUB-Q No Longer [facility] [id number] SUB-Q, Drug Active 2012 Medical Form: SOLN, Center Dosing Weight 90, kg, ONCE, STAT, Start date: 03/07/13 5:18:00, Stop date: 03/07/13 5:18:00 Insulin regular 99 mL, Rate: IVPB No Longer [facility] 100 unit + Start Insulin Active 2012 Medical Sodium Chloride Drip Per ICU Center 0.9% (titrate) Protocol, Dosing 99 mL Weight 90, kg, Route: IVPB, Total Volume: 100, Duration: 30 day, Stop date: 04/06/13 5:14:00, Replace Every: 24 hr, Initial Insulin Drip Rate (units/hour)=(Fa sting Blood Glucose-60)X0.03 "multip...Initia l Insulin Drip Rate (units/hour)=(Fa sting Blood Glucose-60)X0.03 "multiplier". Dextrose 50% 12.5 gm, 25 mL, IVP No Longer [facility] Syringe Route: IVP, Drug Active 2012 Medical Form: INJ, Center Dosing Weight 90, kg, PRN, PRN Blood Glucose Results, Start date: 03/07/13 5:13:00, Duration: 30 day, Stop date: 04/06/13 5:12:00 NS (Bolus) IV 1,000 mL, Rate: IV No Longer [facility] 1,000 mL 1,000 ml/hr, Active 2012 Medical Infuse over: 1 Center hr, Route: IV, Dosing Weight 90 kg, Total Volume: 1,000, Priority: STAT, Start date: 03/07/13 2:36:00, Duration: 1 doses or times, Stop date: 03/07/13 3:35:00, Bolus DoseBolus Dose magnesium 2 gm, 50 mL, IVPB No Longer [facility] [place] sulfate Route: IVPB, 2012 Medical Drug form: INJ, Center ONCE, Dosing Weight 90, kg, Start date: 03/07/13 2:35:00, Stop date: 03/07/13 2:35:00 Insulin regular 10 unit, 0.1 mL, SUB-Q No Longer [facility] [place] Route: SUB-Q, 2012 Medical Drug form: SOLN, Center ONCE, Dosing Weight 90, kg, Priority: STAT, Start date: 03/07/13 2:16:00, Stop date: 03/07/13 2:16:00 Reglan 10 mg, 2 mL, IVP No Longer [facility] [place] Route: IVP, Drug 2012 Medical form: INJ, ONCE, Center Dosing Weight 90, kg, Priority: STAT, Start date: 03/07/13 2:16:00, Stop date: 03/07/13 2:16:00 NS 1,000 mL 1,000 mL, Rate: IV No Longer [facility] [place] 150 ml/hr, 2012 Medical Infuse over: 6.7 Center hr, Route: IV, Dosing Weight 90 kg, Total Volume: 1,000, Start date: 03/07/13 2:15:00, Duration: 30 day, Stop date: 04/06/13 2:14:00 droperidol 1.25 mg, Route: IVP No Longer [facility] IVP, ONCE, 2012 Medical Dosing Weight Center 90, kg, PRN Nausea & Vomiting, Start date: 03/07/13 0:48:00 D5W 1/2NS 1,000 1,000 mL, Rate: IV No Longer [facility] [place] mL 125 ml/hr, 2012 Medical Infuse over: 8 Center hr, Route: IV, Dosing Weight 90 kg, Total Volume: 1,000, Start date: 03/07/13 0:43:00, Duration: 30 day, Stop date: 04/06/13 0:42:00 Insulin regular 4 unit, 0.04 mL, SUB-Q No Longer [facility] [place] Route: SUB-Q, Active 2012 Medical Drug form: SOLN, Center Sliding Scale, Dosing Weight 90, kg, PRN Blood Glucose Results, Start date: 03/07/13 0:01:00, Duration: 30 day, Stop date: 04/06/13 0:00:00 glucagon 1 mg, Route: IM, IM No Longer [facility] [place] Drug form: Active 2012 Medical PDR/INJ, PRN, Center Dosing Weight 90, kg, PRN Blood Glucose Results, Start date: 03/07/13 0:01:00, Duration: 30 day, Stop date: 04/06/13 0:00:00 Dextrose 50% 25 gm, 50 mL, IVP No Longer [facility] [place] Syringe Route: IVP, Drug Active 2012 Medical Form: INJ, Center Dosing Weight 90, kg, PRN, PRN Blood Glucose Results, Start date: 03/07/13 0:01:00, Duration: 30 day, Stop date: 04/06/13 0:00:00 NS 1,000 mL 1,000 mL, Rate: IV No Longer [facility] [place] 125 ml/hr, 2012 Medical Infuse over: 8 Center hr, Route: IV, Dosing Weight 90 kg, Total Volume: 1,000, Start date: 03/06/13 23:21:00, Duration: 30 day, Stop date: 04/05/13 23:20:00 NS (Bolus) IV 1,000 mL, Rate: IV No Longer [facility] [place] 1,000 mL 1,000 ml/hr, 2012 Medical Infuse over: 1 Center hr, Route: IV, Dosing Weight 90 kg, Total Volume: 1,000, Priority: STAT, Start date: 03/06/13 23:21:00, Duration: 1 doses or times, Stop date: 03/07/13 0:20:00, Bolus DoseBolus Dose [place] 5/325 1 tab, PO, Q6H, PO No Longer [place] oral tablet PRN, 30 tab, Active 2012 Medical Substitution Center Allowed, Maintenance ferrous sulfate 325 mg, 1 tab, PO Active [facility] 325 mg oral PO, TID, 30 tab, 2012 Medical enteric coated Substitution Center tablet Allowed, ECTAB acetaminophen-h 1 tab, PO, Q4H, PO Active [facility] ydrocodone 500 PRN, for pain, 2012 Medical mg-7.5 mg oral Substitution Center tablet Allowed, Maintenance, TAB meloxicam 7.5 7.5 mg, 1 tab, PO Active [place] 03[facility] mg oral tablet PO, BID, WITH 2012 Medical FOOD, 30 tab, Center Substitution Allowed, TABWITH FOOD Zocor 40 mg 40 mg, 1 tab, PO Active [place] 03[facility] oral tablet PO, Bedtime, 30 2012 Medical tab, Center Substitution Allowed, Maintenance ProAir HFA 90 Substitution Active [facility] mcg/inh Allowed, 2012 Medical inhalation Maintenance Center aerosol with adapter Flexeril 10 mg 10 mg, 1 tab, PO Active [place] [facility] oral tablet PO, TID, PRN, 30 2012 Medical tab, for spasm, Center Substitution Allowed, TAB Protonix 40 mg 40 mg, 1 tab, PO Active [facility] oral enteric PO, BID, 30 tab, 2012 Medical coated tablet Substitution Center Allowed, ECTAB Lyrica 150 mg 150 mg, 1 cap, PO Active [facility] oral capsule PO, BID, 90 cap, 2012 [facility] Substitution [place] Allowed, CAP Flagyl 500 mg 500 mg, 1 tab, PO No Longer [facility] oral tablet PO, Q6H, 30 tab, Active 2012 [facility] Substitution [place] Allowed metoclopramide 10 mg, 1 tab, PO Active [facility] 10 mg oral PO, TID, 56 tab, 2012 Medical tablet Substitution Center Allowed, TAB NS (Bolus) IV 1,000 mL, Rate: IV No Longer [facility] 1,000 mL 1,000 ml/hr, Active 2012 Medical Infuse over: 1 Center hr, Route: IV, Dosing Weight 90 kg, Total Volume: 1,000, Priority: STAT, Start date: 03/06/13 21:27:00, Duration: 1 doses or times, Stop date: 03/06/13 22:26:00, Bolus DoseBolus Dose morphine 4 mg, 1 mL, IVP No Longer [facility] Sulfate Route: IVP, Drug Active 2012 Medical form: INJ, ONCE, Center Dosing Weight 90, kg, Start date: 03/06/13 21:27:00, Stop date: 03/06/13 21:27:00 Phenergan 12.5 mg, 0.5 mL, IVPB No Longer [facility] Route: IVPB, Active 2012 Medical Drug form: INJ, Center ONCE, Dosing Weight 90, kg, Priority: STAT, Start date: 03/06/13 21:26:00, Stop date: 03/06/13 21:26:00 ergocalciferol 50,000 IntlUnit, PO No Longer [facility] 1 cap, Route: Active 2012 Medical PO, Drug form: Center CAP, qWeek, Dosing Weight 100, kg, Start date: 12/07/12 9:00:00, Duration: 30 day, Stop date: 01/04/13 9:00:00 erythromycin 250 mg, 1 tab, PO Active [facility] stearate 250 mg PO, Q6H, 56 tab, 2012 Medical oral tablet Substitution Center Allowed, TAB Protonix 40 mg 40 mg, 1 tab, PO Active [facility] oral enteric PO, Daily, 2012 Medical coated tablet tab, Center Substitution Allowed, ECTAB pravastatin 80 80 mg, 1 tab, PO Active [facility] mg oral tablet PO, Daily, 30 2012 Medical tab, Center Substitution Allowed, TAB insulin detemir 14 unit, 0.14 SUB-Q Active [facility] 100 units/mL mL, SUB-Q, 2012 Medical subcutaneous Bedtime, 100 mL, Center solution Substitution Allowed, INJ insulin detemir 16 unit, 0.16 SUB-Q Active [facility] 100 units/mL mL, SUB-Q, 2012 Medical subcutaneous Daily, 100 mL, Center solution Substitution Allowed, INJ Protonix 40 mg, Route: IVP No Longer [facility] IVP, Drug form: Active 2012 Medical INJ, Daily, Center Dosing Weight 100, kg, Priority: NOW, Start date: 12/06/12 16:52:00, Duration: 30 day, Stop date: 01/05/13 9:00:00 insulin detemir 16 unit, 0.16 SUB-Q No Longer [place] [facility] mL, Route: Active 2012 Medical SUB-Q, Drug Center form: INJ, Daily, Dosing Weight 100, kg, Start date: 12/06/12 9:00:00, Stop date: 01/04/13 9:00:00 [place] 7.5/325 1 tab, Route: PO No Longer [place] oral tablet PO, Drug Form: Active 2012 Medical TAB, Dosing Center Weight 100, kg, ONCE, Start date: 12/06/12 0:19:00, Stop date: 12/06/12 0:19:00 Pravachol 80 mg, 4 tab, PO No Longer [facility] Route: PO, Drug Active 2012 Medical form: TAB, Center Bedtime, Start date: 12/05/12 21:00:00, Duration: 30 day, Stop date: 01/03/13 21:00:00 insulin detemir 14 unit, 0.14 SUB-Q No Longer [place] [facility] mL, Route: Active 2012 Medical SUB-Q, Drug Center form: INJ, Bedtime, Dosing Weight 100, kg, Start date: 12/05/12 21:00:00, Stop date: 01/03/13 21:00:00 morphine 4 mg, 1 mL, IVP No Longer [facility] Sulfate Route: IVP, Drug Active 2012 Medical form: INJ, ONCE, Center Dosing Weight 100, kg, Start date: 12/05/12 16:51:00, Stop date: 12/05/12 16:51:00 erythromycin + 250 mg, Route: IVPB No Longer [facility] Sodium Chloride IVPB, Q8H, Active 2012 Medical 0.9% IV 100 mL Dosing Weight Center 100, kg, Start date: 12/05/12 16:00:00, Duration: 30 day, Stop date: 01/04/13 8:00:00 potassium 20 mEq, 100 mL, IVPB No Longer [facility] chloride Route: IVPB, Active 2012 Medical Q2H, Start date: Center 12/05/12 8:00:00, Stop date: 12/05/12 11:00:00 NS + KCL 1,000 mL, Rate: IV No Longer [facility] 20mEq/L 1000ml 125 ml/hr, Active 2012 Medical ([employer]ix) 1,000 Infuse over: 8 Center mL hr, Route: IV, kg, Total Volume: 1,000, [...] date: 12/04/12 23:39:00 potassium 20 mEq, 100 mL, IVPB No Longer [facility] chloride Route: IVPB, Active 2012 Medical Q2H, Start date: Center 12/04/12 10:00:00, Duration: 2 doses or times, Stop date: 12/04/12 12:00:00 Protonix 40 mg, 1 tab, PO No Longer [facility] [place] Route: PO, Drug Active 2012 Medical form: ECTAB, Center Daily, Dosing Weight 100, kg, Start date: 12/04/12 9:00:00, Duration: 30 day, Stop date: 01/02/13 9:00:00 potassium 40 mEq, Route: IV No Longer [facility] chloride IV, ONCE, Dosing Active 2012 Medical Weight 100, kg, Center Start date: 12/04/12 8:20:00, Stop date: 12/04/12 8:20:00 Phenergan 25 mg, 1 supp, [place] No Longer [facility] Route: WI, Drug Active 2012 Medical form: SUPP, Q4H, Center Dosing Weight 100, kg, PRN Nausea & Vomiting, Start date: 12/04/12 7:58:00, Duration: 30 day, Stop date: 01/03/13 7:57:00 Dextrose 50% 25 gm, 50 mL, IVP No Longer [facility] Syringe Route: IVP, Drug Active 2012 Medical Form: INJ, Center Dosing Weight 100, kg, PRN, PRN Blood Glucose Results, Start date: 12/04/12 7:48:00, Duration: 30 day, Stop date: 01/03/13 7:47:00 glucagon 1 mg, Route: IM, IM No Longer [facility] [place] Drug form: Active 2012 Medical PDR/INJ, PRN, Center Dosing Weight 100, kg, PRN Blood Glucose Results, Start date: 12/04/12 7:48:00, Duration: 30 day, Stop date: 01/03/13 7:47:00 insulin aspart 4 unit, 0.04 mL, SUB-Q No Longer [place] Route: SUB-Q, Active 2012 Medical Drug form: SOLN, Center Bedtime, Dosing Weight 100, kg, PRN Blood Glucose Results, Start date: 12/04/12 7:48:00, Duration: 30 day, Stop date: 01/03/13 7:47:00 Protonix 40 mg, Route: IV No Longer [place] IV, Drug form: Active 2012 Medical INJ, ONCE, Center Dosing Weight 100, kg, Start date: 12/04/12 3:12:00, Stop date: 12/04/12 3:12:00 potassium 20 mEq, 100 mL, IVPB No Longer [facility] chloride Route: IVPB, Active 2012 Medical Q2H, Start date: [place] 12/03/12 8:00:00, Stop date: 12/03/12 11:00:00 potassium 40 mEq, Route: IV No Longer [facility] chloride IV, ONCE, Dosing Active 2012 Medical Weight 100, kg, Center Start date: 12/03/12 7:02:00, Stop date: 12/03/12 7:02:00 NS 1,000 mL 1,000 mL, Rate: IV No Longer [facility] 125 ml/hr, Active 2012 Medical Infuse over: 8 Center hr, Route: IV, kg, Total Volume: 1,000, Start date: 12/02/12 16:54:00, Duration: 30 day, Stop date: 01/01/13 16:53:00 NS (Bolus) IV 1,000 mL, Rate: IV No Longer [facility] [place] 1,000 mL 1,000 ml/hr, Active 2012 Medical Infuse over: 1 Center hr, Route: IV, kg, Total Volume: 1,000, Priority: STAT, Start date: 12/02/12 13:12:00, Duration: 1 doses or times, Stop date: 12/02/12 14:11:00, Bolus DoseBolus Dose NS (Bolus) IV 1,000 mL, Rate: IV No Longer [facility] 1,000 mL 1,000 ml/hr, Active 2012 Medical Infuse over: 1 Center hr, Route: IV, kg, Total Volume: 1,000, Priority: STAT, Start date: 12/02/12 12:10:00, Duration: 1 doses or times, Stop date: 12/02/12 13:09:00, Bolus DoseBolus Dose insulin detemir 20 unit, 0.2 mL, SUB-Q No Longer [place] Route: SUB-Q, Active 2012 Medical Drug form: INJ, Center BID, Dosing Weight 100, kg, Start date: 12/02/12 9:00:00, Duration: 30 day, Stop date: 12/31/12 21:00:00 calcium 1,000 mg, 10 mL, IVPB No Longer [place] chloride + Route: IVPB, Active 2012 Medical Sodium Chloride ONCE, Start Center 0.9% IV 100 mL date: 12/02/12 5:08:00, Stop date: 12/02/12 5:08:00 ceftriaxone 1 gm, Route: IVPB No Longer [facility] IVPB, Drug form: Active 2012 Medical PDR/INJ, Center [id number], Dosing Weight 100, kg, Start date: 12/02/12 5:00:00, Duration: 30 day, Stop date: 12/31/12 5:00:00 calcium 1,000 mg, Route: IVPB No Longer [facility] gluconate IVPB, Drug form: Active 2012 Medical INJ, ONCE, Center Dosing Weight 100, kg, Start date: 12/02/12 5:00:00, Stop date: 12/02/12 5:00:00 Dextrose 50% 25 mL, Route: IVP No Longer [facility] Syringe IVP, Dosing Active 2012 Medical Weight 100, kg, Center PRN, PRN Blood Glucose Results, Start date: 12/02/12 4:51:00, Duration: 30 day, Stop date: 01/01/13 4:50:00 Insulin regular 100 mL, Rate: IVPB No Longer [facility] 100 unit + Start Insulin Active 2012 Medical Sodium Chloride Drip Per ICU Center 0.9% (titrate) Protocol, Dosing 100 mL Weight 100, kg, Route: IVPB, Total Volume: 100, Duration: 30 day, Stop date: 01/01/13 4:51:00, Replace Every: 24 hr, Initial Insulin Drip Rate (units/hour)=(Fa sting Blood Glucose-60)X0.03 "mult...Initial Insulin Drip Rate (units/hour)=(Fa sting Blood Glucose-60)X0.03 "multiplier". Zofran 4 mg, Route: IVP No Longer [facility] IVP, Drug form: Active 2012 Medical INJ, ONCE, Center Dosing Weight 100, kg, Priority: STAT, Start date: 12/02/12 4:47:00, Stop date: 12/02/12 4:47:00 normal saline 1,000 mL, Rate: IV No Longer [place] 0.9% IV 1,000 1,000 ml/hr, Active 2012 Medical mL Infuse over: 1 Center hr, Route: IV, kg, Total Volume: 1,000, Start date: 12/02/12 3:19:00, Duration: 1 doses or times, Stop date: 12/02/12 4:18:00 Insulin regular 6 unit, 0.06 mL, IV No Longer [facility] Route: IV, Drug Active 2012 Medical form: [place] MARRUFO ONCE, Dosing Weight 100, kg, Priority: STAT, Start date: 12/02/12 3:19:00, Stop date: 12/02/12 3:19:00 insulin aspart 3 unit, 0.03 mL, SUB-Q No Longer [facility] Route: SUB-Q, Active 2012 Medical Drug form: SOLN, [place] Bedtime, Dosing Weight 100, kg, PRN Blood Glucose Results, Start date: 12/01/12 13:23:00, Duration: 30 day, Stop date: 12/31/12 13:22:00 NS 1,000 mL 1,000 mL, Rate: IV No Longer [facility] 150 ml/hr, Active 2012 Medical Infuse over: 6.7 Center hr, Route: IV, kg, Total Volume: 1,000, Priority: NOW, Start date: 12/01/12 13:10:00, Duration: 1 doses or times, Stop date: 12/01/12 19:51:00 Insulin regular 2 unit, 0.02 mL, SUB-Q No Longer [facility] Route: SUB-Q, Active 2012 Medical [facility], [place] Bedtime, Dosing Weight 100, kg, PRN Blood Glucose Results, Start date: 12/01/12 13:08:00, Duration: 30 day, Stop date: 12/31/12 13:07:00 insulin aspart 4 unit, 0.04 mL, SUB-Q No Longer [facility] Route: SUB-Q, Active 2012 Medical Drug form: [facility], [place] TID-Before Meals, Dosing Weight 100, kg, PRN Blood Glucose Results, Start date: 12/01/12 13:08:00, Duration: 30 day, Stop date: 12/31/12 13:07:00 Dextrose 50% 25 gm, 50 mL, IVP No Longer [facility] Syringe Route: IVP, Drug Active 2012 Medical Form: INJ, Center Dosing Weight 100, kg, PRN, PRN Blood Glucose Results, Start date: 12/01/12 13:08:00, Duration: 30 day, Stop date: 12/31/12 13:07:00 glucagon 1 mg, Route: IM, IM No Longer [facility] Drug form: Active 2012 Medical PDR/INJ, PRN, [...] Route: IVPB, Active 2012 Medical Drug form: INJ, Center Q2H, Dosing Weight 100, kg, Start date: 12/01/12 6:00:00, Duration: 2 doses or times, Stop date: 12/01/12 8:00:00, For Mg=1.5 - 1.7 mg/dLFor Mg=1.5 - 1.7 mg/dL potassium 20 mEq, 100 mL, IVPB No Longer [facility] chloride Route: IVPB, Active 2012 Medical Drug form: INJ, Center Q2H, Dosing Weight 100, kg, Total dose=40 mEq, Start date: 12/01/12 6:00:00, Duration: 2 doses or times, Stop date: 12/01/12 8:00:00, For K=3.5 - 3.9 mEq/LFor K=3.5 - 3.9 mEq/L Dextrose 50% 12.5 gm, 25 mL, IVP No Longer [facility] Syringe Route: IVP, Drug Active 2012 Medical Form: INJ, Center Dosing Weight 100, kg, PRN, PRN Blood Glucose Results, Start date: 11/30/12 19:13:00, Duration: 30 day, Stop date: 12/30/12 19:12:00 insulin aspart 1 unit, 0.01 mL, SUB-Q No Longer [facility] Route: SUB-Q, Active 2012 Medical Drug form: SOLN, Center Sliding Scale, Dosing Weight 100, kg, PRN Blood Glucose Results, Start date: 11/30/12 18:36:00, Duration: 30 day, Stop date: 12/30/12 18:35:00 insulin detemir 16 unit, 0.16 SUB-Q No Longer [facility]30[facility] mL, Route: Active 2012 Medical SUB-Q, Drug Center form: INJ, Q12H, Dosing Weight 100, kg, Start date: 11/30/12 14:00:00, Duration: 30 day, Stop date: 12/30/12 9:00:00 Zofran 4 mg, 2 mL, IV No Longer [place] Route: IV, Drug Active 2012 Medical form: INJ, Q6H, Center Dosing Weight 100, kg, PRN Nausea, Start date: 11/30/12 13:32:00, Duration: 30 day, Stop date: 12/30/12 13:31:00 insulin aspart 10 unit, 0.1 mL, SUB-Q No Longer [facility] Route: SUB-Q, Active 2012 Medical Drug form: SOLN, Center TID-Before Meals, Dosing Weight 100, kg, PRN Blood Glucose Results, Start date: 11/30/12 13:26:00, Duration: 30 day, Stop date: 12/30/12 13:25:00 Zofran 4 mg, 2 mL, IV No Longer [facility] [place] Route: IV, Drug Active 2012 Medical form: INJ, Q8H, Center Dosing Weight 100, kg, PRN Nausea, Start date: 11/30/12 11:58:00, Duration: 30 day, Stop date: 12/30/12 11:57:00 Zofran 4 mg, 2 mL, IVP No Longer [place] Route: IVP, Drug Active 2012 Medical form: INJ, ONCE, Center Dosing Weight 100, kg, Priority: NOW, Start date: 11/30/12 11:57:00, Stop date: 11/30/12 11:57:00 potassium 2 pkt, Route: PO No Longer [facility] [place] phosphate-sodiu PO, Drug Form: Active 2012 Medical m phosphate 250 PDR/REC, ONCE, Center mg-278 mg-164 Start date: mg oral powder 11/30/12 10:00:00, Stop date: 11/30/12 10:00:00 Dextrose 5% 1,000 mL, Rate: IV No Longer [facility] [place] with 0.45% NaCl 150 ml/hr, Active 2012 Medical IV 1,000 mL Infuse over: 6.7 Center hr, Route: IV, kg, Total Volume: 1,000, [...] No Longer [facility] sulfate IVPB, Drug form: Active 2012 Medical INJ, ONCE, Center Dosing Weight 100, kg, Total dose=2 gm, Start date: 11/30/12 8:05:00, Duration: 1 doses or times, Stop date: 11/30/12 8:05:00 potassium 30 mmol, Route: IVPB No Longer [facility] phosphate IVPB, ONCE, Active 2012 Medical Dosing Weight Center 100, kg, Start date: 11/30/12 8:05:00, Duration: 1 doses or times, Stop date: 11/30/12 8:05:00, For PO4=1.5 - 1.9 mg/dL; Administer when level=3 - 3.4 mEq/L in place of KClFor PO4=1.5 - 1.9 mg/dL; Administer when level=3 - 3.4 mEq/L in place of KCl heparin 5000 5,000 unit, SUB-Q No Longer [facility] units/mL Route: SUB-Q, Active 2012 Medical injectable Drug form: INJ, Center solution Q8H, Dosing Weight 100, kg, Start date: 11/30/12 8:00:00, Duration: 30 day, Stop date: 12/30/12 0:00:00 insulin aspart 10 unit, 0.1 mL, SUB-Q No Longer [facility] Route: SUB-Q, Active 2012 Medical Drug form: SOLN, Center TID-Before Meals, Dosing Weight 100, kg, PRN Blood Glucose Results, Start date: 11/30/12 7:57:00, Duration: 30 day, Stop date: 12/30/12 7:56:00 glucagon 1 mg, Route: IM, IM No Longer [facility] Drug form: Active 2012 Medical PDR/INJ, PRN, Center Dosing Weight 100, kg, PRN Blood Glucose Results, Start date: 11/30/12 7:57:00, Duration: 30 day, Stop date: 12/30/12 7:56:00 Dextrose 50% 25 gm, 50 mL, IVP No Longer [facility] Syringe Route: IVP, Drug Active 2012 Medical Form: INJ, Center Dosing Weight 100, kg, PRN, PRN Blood Glucose Results, Start date: 11/30/12 7:57:00, Duration: 30 day, Stop date: 12/30/12 7:56:00 1/2 NS 1,000 mL 1,000 mL, Rate: IV No Longer [facility] 200 ml/hr, Active 2012 Medical Infuse over: 5 Center hr, Route: IV, kg, Total Volume: 1,000, Start date: 11/30/12 5:30:00, Duration: 30 day, Stop date: 12/30/12 5:29:00 heparin 5000 5,000 unit, 1 SUB-Q No Longer [facility] units/mL mL, Route: Active 2012 Medical injectable SUB-Q, Drug Center solution form: INJ, Q8H, Dosing Weight 100, kg, Start date: 11/30/12 0:00:00, Duration: 30 day, Stop date: 12/29/12 16:00:00 hydrALAZINE 10 mg, 0.5 mL, IV No Longer [facility] Route: IV, Drug Active 2012 Medical form: INJ, Q4H, Center Dosing Weight 100, kg, PRN Hypertension, Start date: 11/29/12 22:56:00, Duration: 30 day, Stop date: 12/29/12 22:55:00 simvastatin 40 mg, 1 tab, PO No Longer [facility] Route: PO, Drug Active 2012 Medical form: TAB, Center Bedtime, Dosing Weight 101.364, kg, Start date: 11/29/12 21:00:00, Duration: 30 day, Stop date: 12/28/12 21:00:00 Cymbalta 60 mg, 1 cap, PO No Longer [place] Route: PO, Drug Active 2012 Medical form: DRC, Center Bedtime, Dosing Weight 101.364, kg, Start date: 11/29/12 21:00:00, Stop date: 12/28/12 21:00:00 ceftriaxone 1 gm, Route: IVPB No Longer [facility] IVPB, Drug form: Active 2012 Medical PDR/INJ, Center [id number], Dosing Weight 100, kg, Start date: 11/29/12 20:00:00, Duration: 30 day, Stop date: 12/28/12 20:00:00 hydrALAZINE 5 mg, 0.25 mL, IV No Longer [facility] Route: IV, Drug Active 2012 Medical form: INJ, Q4H, Center Dosing Weight 100, kg, PRN Hypertension, Start date: 11/29/12 19:42:00, Duration: 30 day, Stop date: 12/29/12 19:41:00 Phenergan 12.5 mg, 0.5 mL, IVPB No Longer [facility] Route: IVPB, Active 2012 Medical Drug form: INJ, Center Q4H, Dosing Weight 100, kg, PRN Nausea & Vomiting, Start date: 11/29/12 17:56:00, Duration: 30 day, Stop date: 12/29/12 17:55:00 clonazepam 0.5 mg, 1 tab, PO No Longer [facility] Route: PO, Drug Active 2012 Medical form: TAB, TID, Center Dosing Weight 101.364, kg, PRN Anxiety, Start date: 11/29/12 16:34:00, Duration: 30 day, Stop date: 12/29/12 16:33:00 heparin 5,000 unit, 1 SUB-Q No Longer [facility] mL, Route: Active 2012 Medical SUB-Q, Drug Center form: INJ, Q8H, Dosing Weight 100, kg, Start date: 11/29/12 16:00:00, Duration: 30 day, Stop date: 12/29/12 8:00:00 Insulin 99 mL, Rate: IV No Longer [facility] [place] (regular) 0.1units/kg/hour Active 2012 Medical Titrate IV Titrate, Dosing Center additive 100 Weight 100, kg, unit + Sodium Route: IV, Total Chloride 0.9% Volume: 100, (titrate) 99 mL Duration: 30 day, Stop date: 12/29/12 14:42:00, Replace Every: 24 hr magnesium 6 gm, 150 mL, IVPB No Longer [facility] [place] sulfate 2 gm in Route: IVPB, Active 2012 Medical Water 50 ml Drug form: INJ, Center PRN, Dosing Weight 100, kg, PRN Abnormal Lab Result, Start date: 11/29/12 14:41:00, Stop date: 12/29/12 14:40:00 potassium 20 mmol, Route: IVPB No Longer [facility] [place] phosphate 20 IVPB, PRN, Active 2012 Medical mmol/250 Dosing Weight Center mL-NaCl 0.9% 100, kg, PRN intravenous Abnormal Lab solution Result, Priority: Routine, Start date: 11/29/12 14:41:00, Duration: 30 day, Stop date: 12/29/12 14:40:00 Dextrose 50% 25 gm, 50 ml, IVP No Longer [facility] [place] Syringe Route: IVP, Drug Active 2012 Medical Form: INJ, Center Dosing Weight 100, kg, PRN, PRN Blood Glucose Results, Start date: 11/29/12 14:41:00, Duration: 30 day, Stop date: 12/29/12 14:40:00 potassium 40 mEq, 200 mL, IVPB No Longer [facility] [place] chloride 20 Route: IVPB, Active 2012 Medical mEq/100 mL Drug form: INJ, Center intravenous PRN, Dosing solution Weight 100, kg, PRN Abnormal Lab Result, Start date: 11/29/12 14:41:00, Stop date: 12/29/12 14:40:00 D5W 1/2NS 1,000 1,000 mL, Rate: IV No Longer [facility] mL 200 ml/hr, Active 2012 Medical Infuse over: 5 Center hr, Route: IV, kg, Total Volume: 1,000, Start date: 11/29/12 14:41:00, Stop date: 12/29/12 14:40:00 Sodium Chloride 1,000 mL, Rate: IV No Longer [facility] 0.9% IV 1,000 200 ml/hr, Active 2012 Medical mL Infuse over: 5 Center hr, Route: IV, kg, Total Volume: 1,000, Start date: 11/29/12 14:41:00, Stop date: 12/29/12 14:45:00 Insulin regular 99 mL, Rate: IV No Longer [facility] 100 unit + Start Insulin Active 2012 Medical Sodium Chloride Drip Per ICU Center 0.9% IV 99 mL protocol, Route: IV, kg, Total Volume: 100, Start date: 11/29/12 12:42:00, Stop date: 12/29/12 12:41:00 Insulin regular 100 mL, Rate: IVPB No Longer [facility] 100 unit + Start Insulin Active 2012 Medical Sodium Chloride Drip Per ICU Center 0.9% (titrate) Protocol, Dosing 100 mL Weight 100, kg, Route: IVPB, Total Volume: 100, Duration: 30 day, Stop date: 12/29/12 12:40:00, Replace Every: 24 hr, Initial Insulin Drip Rate (units/hour)=(Fa sting Blood Glucose-60)X0.03 "mul...Initial Insulin Drip Rate (units/hour)=(Fa sting Blood Glucose-60)X0.03 "multiplier". Dextrose 50% 12.5 gm, 25 mL, IVP No Longer [facility] Syringe Route: IVP, Drug Active 2012 Medical Form: INJ, Center Dosing Weight 100, kg, PRN, PRN Blood Glucose Results, Start date: 11/29/12 12:39:00, Duration: 30 day, Stop date: 12/29/12 12:38:00 Zofran 4 mg, 2 mL, IV No Longer [facility] Route: IV, Drug Active 2012 Medical form: INJ, Q4H, Center Dosing Weight 100, kg, PRN as needed for nausea/vomiting, Start date: 11/29/12 9:07:00, Duration: 30 day, Stop date: 12/29/12 9:06:00 NIFEdipine 90 mg, 1 tab, PO No Longer [facility] Route: PO, Drug Active 2012 Medical form: ERTAB, Center Daily, Dosing Weight 101.364, kg, Start date: 11/29/12 9:00:00, Duration: 30 day, Stop date: 12/28/12 9:00:00 clonazepam 0.5 mg, 1 tab, PO No Longer [facility] [place] Route: PO, Drug Active 2012 Medical form: TAB, TID, Center Dosing Weight 101.364, kg, Start date: 11/29/12 9:00:00, Duration: 30 day, Stop date: 12/28/12 17:00:00 lisinopril 20 mg, 1 tab, PO No Longer [facility] Route: PO, Drug Active 2012 Medical form: TAB, Q12H, Center Dosing Weight 101.364, kg, Start date: 11/29/12 9:00:00, Duration: 30 day, Stop date: 12/28/12 21:00:00 magnesium oxide 400 mg, 1 tab, PO No Longer [facility] Route: PO, Drug Active 2012 Medical form: TAB, Center Daily, Dosing Weight 101.364, kg, Start date: 11/29/12 9:00:00, Duration: 30 day, Stop date: 12/28/12 9:00:00 Effient 10 mg, 1 tab, PO No Longer [facility] Route: PO, Drug Active 2012 Medical form: TAB, Center Daily, Dosing Weight 101.364, kg, Start date: 11/29/12 9:00:00, Duration: 30 day, Stop date: 12/28/12 9:00:00 Levemir 8 unit, 0.08 mL, SUB-Q No Longer [facility] Route: SUB-Q, Active 2012 Medical Drug form: INJ, Center BID, Dosing Weight 101.364, kg, Start date: 11/29/12 9:00:00, Duration: 30 day, Stop date: 12/28/12 17:00:00 Toprol-XL 100 100 mg, 1 tab, PO No Longer [facility] [place] mg oral tablet, Route: PO, Drug Active 2012 Medical extended form: ERTAB, Center release Daily, Start date: 11/29/12 9:00:00, Duration: 30 day, Stop date: 12/28/12 9:00:00 aspirin 81 mg, 1 tab, PO No Longer [place] [facility] Route: PO, Drug Active 2012 Medical form: ECTAB, Center Daily, Dosing Weight 101.364, kg, Start date: 11/29/12 9:00:00, Duration: 30 day, Stop date: 12/28/12 9:00:00 Reglan 10 mg, 2 mL, IVP No Longer [facility] Route: IVP, Drug Active 2012 Medical form: INJ, Center Q6H-02, Dosing Weight 100, kg, Start date: 11/29/12 8:00:00, Duration: 30 day, Stop date: 12/29/12 2:00:00 Levemir 16 unit, 0.16 SUB-Q No Longer [facility] mL, Route: Active 2012 Medical SUB-Q, Drug Center form: INJ, Q12H, Dosing Weight 100.568, kg, Priority: STAT, Start date: 11/29/12 7:43:00, Stop date: 12/28/12 21:00:00 Reglan 10 mg 10 mg, 1 tab, PO No Longer [facility] oral tablet Route: PO, Drug Active 2012 Medical form: TAB, Center TID-Before Meals, Dosing Weight 101.364, kg, Start date: 11/29/12 7:30:00, Duration: 30 day, Stop date: 12/28/12 16:30:00 NS 1,000 mL 1,000 mL, Rate: IV No Longer [facility] 125 ml/hr, Active 2012 Medical Infuse over: 8 Center hr, Route: IV, kg, Total Volume: 1,000, Start date: 11/29/12 6:53:00, Duration: 30 day, Stop date: 12/29/12 6:52:00 enoxaparin 40 mg, 0.4 mL, SUB-Q No Longer [facility] Route: SUB-Q, Active 2012 Medical Drug form: INJ, Center [id number], Dosing Weight 101.364, kg, Start date: 11/29/12 4:00:00, Duration: 30 day, Stop date: 12/28/12 4:00:00 Phenergan 12.5 mg, 0.25 IVPB No Longer [facility] mL, Route: IVPB, Active 2012 Medical Drug form: INJ, Center Q4H, Dosing Weight 101.364, kg, Start date: 11/29/12 4:00:00, Duration: 30 day, Stop date: 12/29/12 0:00:00 tramadol 50 mg 50 mg, 1 tab, PO No Longer [facility] oral tablet Route: PO, Drug Active 2012 Medical form: TAB, Q4H, Center Dosing Weight 101.364, kg, PRN as needed for pain, Start date: 11/29/12 3:46:00, Duration: 30 day, Stop date: 12/29/12 3:45:00 insulin aspart 3 unit, 0.03 mL, SUB-Q No Longer [facility] Route: SUB-Q, Active 2012 Medical Drug form: SOLN, [place] TID-Before Meals, Dosing Weight 101.364, kg, PRN Blood Glucose Results, Start date: 11/29/12 3:26:00, Duration: 30 day, Stop date: 12/29/12 3:25:00 Dextrose 50% 12.5 gm, 25 mL, IVP No Longer [facility] Syringe Route: IVP, Drug Active 2012 Medical Form: INJ, Center Dosing Weight 101.364, kg, PRN, PRN Blood Glucose Results, Start date: 11/29/12 3:26:00, Duration: 30 day, Stop date: 12/29/12 3:25:00 glucagon 1 mg, Route: IM, IM No Longer [facility] Drug form: Active 2012 Medical PDR/INJ, PRN, Center Dosing Weight 101.364, kg, PRN Blood Glucose Results, Start date: 11/29/12 3:26:00, Duration: 30 day, Stop date: 12/29/12 3:25:00 acetaminophen 650 mg, 20.3 mL, PO No Longer [facility] Route: PO, Drug Active 2012 Medical form: LIQ, Q4H, Center Dosing Weight 101.364, kg, PRN Pain 1-3/Temp > 100.4 F, Start date: 11/29/12 3:25:00, Duration: 30 day, Stop date: 12/29/12 3:24:00 docusate 100 mg, 1 cap, PO No Longer [facility] Route: PO, Drug Active 2012 Medical form: CAP, BID, Center Dosing Weight 101.364, kg, PRN Constipation, Start date: 11/29/12 3:25:00, Duration: 30 day, Stop date: 12/29/12 3:24:00 D5W 1/2NS 1,000 1,000 mL, Rate: IV No Longer [facility] mL 75 ml/hr, Infuse Active 2012 Medical over: 13.3 hr, Center Route: IV, kg, Total Volume: 1,000, Start date: 11/29/12 3:21:00, Duration: 30 day, Stop date: 12/29/12 3:20:00 NS 0.45% IV 1,000 mL, Rate: IV No Longer [facility] 1000 mL 125 ml/hr, Active 2012 Medical Infuse over: 8 Center hr, Route: IV, Dosing Weight 101.364 kg, Total Volume: 1,000, Start date: 11/29/12 3:18:00, Duration: 30 day, Stop date: 12/29/12 3:17:00 Reglan 10 mg, 2 mL, IVP No Longer [facility] Route: IVP, Drug Active 2012 Medical form: INJ, ONCE, Center Dosing Weight 101.364, kg, Priority: STAT, Start date: 11/29/12 2:31:00, Stop date: 11/29/12 2:31:00 Zofran 8 mg, Route: IVP No Longer [facility] IVP, Drug form: Active 2012 Medical INJ, ONCE, Center Dosing Weight 101.364, kg, Priority: STAT, Start date: 11/29/12 1:52:00, Stop date: 11/29/12 1:52:00 Lortab 500 5 ml, PO, Q6H, PO No Longer [facility] mg-7.5 mg/15 mL PRN, 120 mL, for Active 2012 Medical oral elixir pain, Center Substitution Allowed, Maintenance, ELIX Phenergan 25 mg 1 supp, [place], Q6H, [place] Active [facility] rectal PRN, 9 supp, 2012 Medical suppository Nausea & Center Vomiting, Substitution Allowed Phenergan 12.5 mg, 0.5 mL, IVPB No Longer [facility] Route: IVPB, Active 2012 Medical Drug form: INJ, Center ONCE, Dosing Weight 101.364, kg, Priority: STAT, Start date: 11/29/12 0:56:00, Stop date: 11/29/12 0:56:00 Zofran 4 mg, 2 mL, IVP No Longer [facility] Route: IVP, Drug Active 2012 Medical form: INJ, ONCE, Center Dosing Weight 101.364, kg, Priority: STAT, Start date: 11/28/12 23:49:00, Stop date: 11/28/12 23:49:00 Phenergan 12.5 mg, 0.5 mL, IVPB No Longer [facility] Route: IVPB, Active 2012 Medical Drug form: INJ, Center ONCE, Dosing Weight 101.364, kg, Priority: STAT, Start date: 11/28/12 19:29:00, Stop date: 11/28/12 19:29:00 Zofran 4 mg, 2 mL, IVP No Longer [place] [facility] Route: IVP, Drug 2012 Medical form: INJ, ONCE, Center Dosing Weight 101.364, kg, Priority: STAT, Start date: 11/28/12 19:29:00, Stop date: 11/28/12 19:29:00 Sodium Chloride 1,000 mL, Rate: IV No Longer [place] [facility] 0.9% (Bolus) IV 1,000 ml/hr, Active 2012 Medical 1,000 mL Infuse over: 1 Center hr, Route: IV, kg, Total Volume: 1,000, Priority: STAT, Start date: 11/28/12 19:29:00, Duration: 1 doses or times, Stop date: 11/28/12 20:28:00 Saline Flush 5 ml, Route: IVP No Longer [facility] 0.9% IVP, Drug Form: Active 2012 Medical INJ, Dosing Center Weight 101.364, kg, PRN, PRN Line Flush, Start date: 11/28/12 19:29:00, Duration: 30 day, Stop date: 12/28/12 19:28:00 calcium 2,000 mg, 20 mL, IVPB No Longer [facility] gluconate + Route: IVPB, Active 2012 Medical Sodium Chloride ONCE, Dosing Center 0.9% IV 80 mL Weight 103.21, kg, Start date: 11/17/12 11:02:00, Stop date: 11/17/12 11:02:00 magnesium 2 gm, 50 mL, IVPB No Longer [facility] sulfate Route: IVPB, Active 2012 Medical Drug form: INJ, Center Q2H, Dosing Weight 103.21, kg, Total dose=4 gm, Start date: 11/17/12 10:00:00, Duration: 2 doses or times, Stop date: 11/17/12 12:00:00 aspirin 81 mg, 1 tab, PO No Longer [facility] Route: PO, Drug Active 2012 Medical form: ECTAB, Center Daily, Dosing Weight 100, kg, Start date: 11/17/12 9:00:00, Duration: 30 day, Stop date: 12/16/12 9:00:00 simvastatin 40 mg, 1 tab, PO No Longer [facility] Route: PO, Drug Active 2012 Medical form: TAB, Center Daily, Dosing Weight 100, kg, Start date: 11/17/12 9:00:00, Duration: 30 day, Stop date: 12/16/12 9:00:00 prasugrel 10 mg, 1 tab, PO No Longer [facility] Route: PO, Drug Active 2012 Medical form: TAB, Center Daily, Dosing Weight 100, kg, Start date: 11/17/12 9:00:00, Duration: 30 day, Stop date: 12/16/12 9:00:00 NIFEdipine 90 mg, 1 tab, PO No Longer [facility] Route: PO, Drug Active 2012 Medical form: ERTAB, Center Daily, Dosing Weight 100, kg, Start date: 11/17/12 9:00:00, Duration: 30 day, Stop date: 12/16/12 9:00:00 Toprol-XL 100 100 mg, 1 tab, PO No Longer [facility] mg oral tablet, Route: PO, Drug Active 2012 Medical extended form: ERTAB, Center release Daily, Start date: 11/17/12 9:00:00, Duration: 30 day, Stop date: 12/16/12 9:00:00 magnesium oxide 400 mg, 1 tab, PO No Longer [facility] Route: PO, Drug Active 2012 Medical form: TAB, Center Daily, Dosing Weight 100, kg, Start date: 11/17/12 9:00:00, Duration: 30 day, Stop date: 12/16/12 9:00:00 insulin detemir 15 unit, 0.15 SUB-Q No Longer [facility] mL, Route: Active 2012 Medical SUB-Q, Drug Center form: INJ, Daily, Dosing Weight 100, kg, Start date: 11/17/12 9:00:00, Duration: 30 day, Stop date: 12/16/12 9:00:00 Zofran 8 mg, 4 mL, IV No Longer [facility] Route: IV, Drug Active 2012 Medical form: INJ, Q4H, Center Dosing Weight 103.21, kg, PRN as needed for nausea/vomiting, Start date: 11/17/12 8:56:00, Duration: 30 day, Stop date: 12/17/12 8:55:00 Reglan 10 mg 10 mg, 1 tab, PO No Longer [facility] oral tablet Route: PO, Drug Active 2012 Medical form: TAB, Center TID-Before Meals, Dosing Weight 100, kg, Start date: 11/17/12 7:30:00, Duration: 30 day, Stop date: 12/16/12 16:30:00 insulin aspart 4 unit, 0.04 mL, SUB-Q No Longer [facility] Route: SUB-Q, Active 2012 Medical Drug form: SOLN, Center TID-Before Meals, Dosing Weight 100, kg, Start date: 11/17/12 7:30:00, Duration: 30 day, Stop date: 12/16/12 16:30:00 Cymbalta 120 mg, 2 cap, PO No Longer [facility] Route: PO, Drug Active 2012 Medical form: DRC, Center Bedtime, Dosing Weight 100, kg, Start date: 11/16/12 21:00:00, Duration: 30 day, Stop date: 12/15/12 21:00:00 lisinopril 20 mg, 1 tab, PO No Longer [facility] Route: PO, Drug Active 2012 Medical form: TAB, Q12H, Center Dosing Weight 100, kg, Start date: 11/16/12 21:00:00, Duration: 30 day, Stop date: 12/16/12 9:00:00 insulin detemir 12 unit, 0.12 SUB-Q No Longer [facility] mL, Route: Active 2012 Medical SUB-Q, Drug Center form: INJ, Bedtime, Dosing Weight 100, kg, Start date: 11/16/12 21:00:00, Duration: 30 day, Stop date: 12/15/12 21:00:00 clonazepam 0.5 mg, 1 tab, PO No Longer [facility] Route: PO, Drug Active 2012 Medical form: TAB, TID, Center Dosing Weight 100, kg, Start date: 11/16/12 20:30:00, Duration: 30 day, Stop date: 12/16/12 17:00:00 Neutra-Phos 1 pkt, Route: PO No Longer [facility] PO, Drug Form: Active 2012 Medical PDR/REC, Dosing Center Weight 100, kg, TID-Before Meals, Start date: 11/16/12 20:30:00, Duration: 30 day, Stop date: 12/16/12 16:30:00 enoxaparin 40 mg, 0.4 mL, SUB-Q No Longer [facility] Route: SUB-Q, Active 2012 Medical Drug form: INJ, Center [id number], Dosing Weight 100, kg, Start date: 11/16/12 19:00:00, Duration: 30 day, Stop date: 12/15/12 19:00:00 Sodium Chloride 1,000 mL, Rate: IV No Longer [place] 0.9% IV 1,000 125 ml/hr, Active 2012 Medical mL Infuse over: 8 Center hr, Route: IV, kg, Total Volume: 1,000, Start date: 11/16/12 18:10:00, Duration: 30 day, Stop date: 12/16/12 18:09:00 insulin aspart 10 unit, 0.1 mL, SUB-Q No Longer [facility] Route: SUB-Q, Active 2012 Medical Drug form: SOLN, Center TID-Before Meals, Dosing Weight 100, kg, PRN Blood Glucose Results, Start date: 11/16/12 18:10:00, Duration: 30 day, Stop date: 12/16/12 18:09:00 Dextrose 50% 12.5 gm, 25 mL, IVP No Longer [facility] Syringe Route: IVP, Drug Active 2012 Medical Form: INJ, Center Dosing Weight 100, kg, PRN, PRN Blood Glucose Results, Start date: 11/16/12 18:10:00, Duration: 30 day, Stop date: 12/16/12 18:09:00 glucagon 1 mg, Route: IM, IM No Longer [facility] Drug form: Active 2012 Medical PDR/INJ, PRN, Center Dosing Weight 100, kg, PRN Blood Glucose Results, Start date: 11/16/12 18:10:00, Duration: 30 day, Stop date: 12/16/12 18:09:00 [place] 5/325 1 tab, Route: PO No Longer [facility] oral tablet PO, Drug Form: Active 2012 Medical TAB, Dosing Center Weight 100, kg, Q6H, PRN as needed for pain, Start date: 11/16/12 18:07:00, Duration: 30 day, Stop date: 12/16/12 18:06:00 tramadol 50 mg 50 mg, 1 tab, PO No Longer [facility] oral tablet Route: PO, Drug Active 2012 Medical form: TAB, Q4H, Center Dosing Weight 100, kg, PRN as needed for pain, Start date: 11/16/12 18:01:00, Duration: 30 day, Stop date: 12/16/12 18:00:00 promethazine 25 mg, 1 tab, PO No Longer [facility] Route: PO, Drug Active 2012 Medical form: TAB, Q4H, Center Dosing Weight 100, kg, PRN as needed for nausea/vomiting, Start date: 11/16/12 18:01:00, Duration: 30 day, Stop date: 12/16/12 18:00:00 ondansetron 8 mg, 2 tab, PO No Longer [facility] Route: PO, Drug Active 2012 Medical form: TABDIS, Center Q8H, Dosing Weight 100, kg, PRN Nausea & Vomiting, Start date: 11/16/12 18:01:00, Stop date: 12/16/12 18:00:00, nauea ondansetron 8 8 mg, 1 tab, PO, PO Active [facility] mg oral tablet, Q8H, PRN, 2012 Medical disintegrating Dissolve under Center tongue, 10 tab, as needed for nausea/vomiting, Substitution AllowedDissolve under tongue Effient 10 mg 10 mg, 1 tab, PO Active Fei oral tablet PO, Daily, 30 2012 Medical tab, Center Substitution Allowed, TAB tramadol 50 mg 50 mg, 1 tab, PO Active [facility] oral tablet PO, Q4H, PRN, 60 2012 Medical tab, for pain, Center Substitution Allowed, TAB clonazepam 0.5 0.5 mg, 1 tab, PO Active [facility] 11/16[facility] mg oral tablet PO, TID, 2012 Medical Substitution Center Allowed, TAB Reglan 10 mg, Route: IVP No Longer [facility] IVP, ONCE, Active 2012 Medical Dosing Weight Center 100, kg, Priority: STAT, Start date: 11/16/12 16:16:00, Stop date: 11/16/12 16:16:00 magnesium 1 gm, 2 mL, IV No Longer [facility] sulfate Route: IV, Drug Active 2012 Medical form: INJ, ONCE, Center Dosing Weight 100, kg, Priority: STAT, Start date: 11/16/12 15:50:00, Stop date: 11/16/12 15:50:00 Omnipaque 100 mL, Route: IVP No Longer [facility] 350mg/ml IVP, Drug Form: Active 2012 Medical SOLN, Dosing Center Weight 100, kg, ONCALL, STAT, Start date: 11/16/12 15:35:00, Duration: 1 doses or times, Dose=2.2ml/kg, Max [id number] -- "To be infused by Radiology Staff ONLY"Dose=2.2ml/ kg, Max [id number]=199ug -- "To be infused by Radiology Staff ONLY" Lactated 1,000 mL, Rate: IV No Longer [facility] Ringers (Bolus) 1,000 ml/hr, Active 2012 Medical IV 1,000 mL Infuse over: 1 Center hr, Route: IV, kg, Total Volume: 1,000, Bolus Dose, Priority: STAT, Start date: 11/16/12 15:06:00, Duration: 1 doses or times, Stop date: 11/16/12 16:05:00 magnesium 1 gm, Route: IVPB No Longer [facility] sulfate IVPB, Drug form: Active 2012 Medical INJ, ONCE, Center Dosing Weight 100, kg, Start date: 11/16/12 14:51:00, Stop date: 11/16/12 14:51:00 Ativan 1 mg, 0.5 mL, IVP No Longer [facility] Route: IVP, Drug Active 2012 Medical form: INJ, ONCE, Center Dosing Weight 100, kg, Priority: STAT, Start date: 11/16/12 13:55:00, Stop date: 11/16/12 13:55:00 morphine 4 mg, 1 mL, IVP No Longer [facility] Sulfate Route: IVP, Drug Active 2012 Medical form: INJ, ONCE, Center Dosing Weight 100, kg, Priority: STAT, Start date: 11/16/12 13:40:00, Stop date: 11/16/12 13:40:00 nitroglycerin 0.4 mg, 1 tab, SL No Longer [facility] 0.4 mg Route: SL, Drug Active 2012 Medical sublingual form: TAB, ONCE, Center tablet Dosing Weight 100, kg, Start date: 11/16/12 13:30:00, Stop date: 11/16/12 13:30:00 aspirin 324 mg, 4 tab, CHEW No Longer [facility] Route: CHEW, Active 2012 Medical Drug form: Center CHEWTAB, ONCE, Dosing Weight 100, kg, Priority: STAT, Start date: 11/16/12 13:29:00, Stop date: 11/16/12 13:29:00 Zofran 8 mg, 4 mL, IVP No Longer [facility] Route: IVP, Drug Active 2012 Medical form: INJ, ONCE, Center Dosing Weight 100, kg, Priority: STAT, Start date: 11/16/12 13:17:00, Stop date: 11/16/12 13:17:00 Saline Flush 5 mL, Route: IVP No Longer [facility] 0.9% IVP, Drug Form: Active 2012 Medical INJ, Dosing Center Weight 100, kg, Q8H, PRN Line Flush, Start date: 11/16/12 13:16:00, Duration: 30 day, Stop date: 12/16/12 13:15:00, Administer at least once every 8 hoursAdminister at least once every 8 hours Reglan 10 mg 10 mg, 1 tab, PO Active [facility] 11/14[facility] oral tablet PO, TID-Before 2012 Medical Meals, PRN, 42 Center tab, nausea, Substitution Allowed, TAB [place] 5/325 1 tab, PO, Q6H, PO Active [facility] 11/14[facility] oral tablet PRN, 10 tab, 2013 Medical Pain, Center Substitution Allowed, Maintenance, TAB ondansetron 8 8 mg, 1 tab, PO, PO Active [facility] 11/14[facility] mg oral tablet, Q8H, PRN, 60 2012 Medical disintegrating tab, 1, 1, Center Nausea, Substitution Allowed, TABDIS insulin detemir 12 unit, 0.12 SUB-Q Active [facility] 11/14[facility] 100 units/mL mL, SUB-Q, 2012 Medical subcutaneous Bedtime, 4 mL, Center solution Substitution Allowed, INJ insulin detemir 15 unit, 0.15 SUB-Q Active [facility] 11/14[facility] 100 units/mL mL, SUB-Q, 2012 Medical subcutaneous Daily, 5 mL, Center solution Substitution Allowed, INJ Zofran 4 mg, 1 tab, PO No Longer [facility] Route: PO, Drug Active 2012 Medical form: TAB, Q8H, Center Dosing Weight 100, kg, Start date: 11/14/12 16:00:00, Duration: 30 day, Stop date: 12/14/12 8:00:00 Reglan 10 mg 10 mg, 1 tab, PO No Longer [facility] Fei oral tablet Route: PO, Drug Active 2012 Medical form: TAB, Center TID-Before Meals, Dosing Weight 100, kg, Start date: 11/14/12 11:30:00, Duration: 30 day, Stop date: 12/14/12 7:30:00 calcium 2,000 mg, 20 mL, IVPB No Longer Rose [facility] gluconate + Route: IVPB, Active 2012 Medical Sodium Chloride Drug form: INJ, Center 0.9% IV 100 mL Q2H, Dosing Weight 100, kg, Total eedp=2679 mg, Start date: 11/14/12 8:00:00, Duration: 2 doses or times, Stop date: 11/14/12 10:00:00 magnesium 2 gm, 50 mL, IVPB No Longer [facility] Fe[facility] sulfate Route: IVPB, Active 2012 Medical Drug form: INJ, Center Q2H, Dosing Weight 100, kg, Total dose=4 gm, Start date: 11/13/12 10:00:00, Duration: 2 doses or times, Stop date: 11/13/12 12:00:00 Omnipaque 118 mL, Route: IVP No Longer Karanjawala [facility] 350mg/ml IVP, Drug Form: Active 2012 Medical SOLN, Dosing Center Weight 100, kg, ONCALL, STAT, Start date: 11/13/12 9:33:00, Duration: 1 doses or times, Stop date: 11/14/12 0:00:00, Weight=95 - 109kg -- "To be infused by Radiology Staff ONLY"Weight=95 - 109kg -- "To be infused by Radiology Staff ONLY" potassium 20 mEq, 100 mL, IVPB No Longer [facility] Fei chloride Route: IVPB, Active 2012 Medical Drug form: INJ, Center ONCE, Dosing Weight 100, kg, Total dose=20mEq, Start date: 11/13/12 7:58:00, Duration: 1 doses or times, Stop date: 11/13/12 7:58:00, For K=3.5 - 3.9 mEq/LFor K=3.5 - 3.9 mEq/L calcium 1,000 mg, 10 mL, IVPB No Longer [facility] gluconate + Route: IVPB, Active 2012 Medical Sodium Chloride ONCE, Dosing Center 0.9% IV 50 mL Weight 100, kg, Start date: 11/13/12 7:56:00, Stop date: 11/13/12 7:56:00 Reglan 10 mg, 2 mL, IVP No Longer [facility] Route: IVP, Drug Active 2012 Medical form: INJ, Center Before Meals & Bedtime, Dosing Weight 100, kg, Start date: 11/12/12 16:30:00, Duration: 30 day, Stop date: 12/12/12 11:30:00 [place] 5/325 1 tab, Route: PO No Longer [facility] oral tablet PO, Drug Form: Active jaida 2012 Medical TAB, Dosing Center Weight 100, kg, Q6H, PRN Pain, Start date: 11/12/12 16:07:00, Duration: 30 day, Stop date: 12/12/12 16:06:00 Reglan 10 mg, Route: IVP No Longer [facility] IVP, Q6H, Dosing Active 2012 Medical Weight 100, kg, Center PRN Nausea & Vomiting, Start date: 11/12/12 12:35:00, Duration: 30 day, Stop date: 12/12/12 12:34:00 insulin detemir 15 unit, Route: SUB-Q No Longer [facility] SUB-Q, ONCE, Active 2012 Medical Dosing Weight Center 100, kg, Priority: NOW, Start date: 11/12/12 10:38:00, Stop date: 11/12/12 10:38:00 heparin 7,500 unit, 1.5 SUB-Q No Longer Cardo[facility] mL, Route: Active 2012 Medical SUB-Q, [...] gm, 50 mL, IVPB No Longer Juanjo [facility] sulfate Route: IVPB, Active 2012 Medical Drug form: INJ, Center ONCE, Dosing Weight 100, kg, Total dose=2 gm, Start date: 11/11/12 9:04:00, Duration: 1 doses or times, Stop date: 11/11/12 9:04:00 insulin detemir 20 unit, 0.2 mL, SUB-Q No Longer [facility] Route: SUB-Q, Active 2012 Medical Drug form: INJ, Center Daily, Dosing Weight 100, kg, Start date: 11/11/12 9:00:00, Stop date: 12/10/12 9:00:00 Toradol 15 15 mg, 1 mL, IV No Longer Juanjo [facility] mg/mL Route: IV, Drug Active 2012 Medical injectable form: INJ, ONCE, Center solution Dosing Weight 100, kg, Start date: 11/11/12 0:56:00, Stop date: 11/11/12 0:56:00 Zofran 4 mg, 2 mL, IV No Longer [facility] Route: IV, Drug Active 2012 Medical form: INJ, Q8H, Center Dosing Weight 100, kg, Start date: 11/11/12 0:00:00, Duration: 30 day, Stop date: 12/10/12 16:00:00 normal saline 1,000 mL, Rate: IV No Longer [facility] 0.9% IV 1,000 100 ml/hr, Active 2012 Medical mL Infuse over: 10 Center hr, Route: IV, kg, Total Volume: 1,000, Start date: 11/10/12 20:17:00, Duration: 30 day, Stop date: 12/10/12 20:16:00 Sodium Chloride 1,000 mL, Rate: IV No Longer [facility] [place] 0.9% (Bolus) IV 1,000 ml/hr, Active 2012 Medical 1,000 mL Infuse over: 1 Center hr, Route: IV, kg, Total Volume: 1,000, Priority: STAT, Start date: 11/10/12 20:17:00, Duration: 1 doses or times, Stop date: 11/10/12 21:16:00, Bolus DoseBolus Dose insulin detemir 10 unit, 0.1 mL, SUB-Q No Longer [facility] Route: SUB-Q, Active 2012 Medical Drug form: INJ, Center ONCE, Dosing Weight 100, kg, Priority: NOW, Start date: 11/10/12 11:40:00, Stop date: 11/10/12 11:40:00 Zofran ODT 4 mg, 1 tab, PO No Longer Juanjo [place] Route: PO, Drug Active 2012 Medical form: TABDIS, Center Q8H, Dosing Weight 100, kg, PRN Nausea, Start date: 11/10/12 11:04:00, Duration: 30 day, Stop date: 12/10/12 11:03:00 Phenergan 12.5 mg, 0.5 mL, IM No Longer Ahmad [place] Route: IM, Drug 2012 Medical form: INJ, PRN, Center Dosing Weight 100, kg, PRN as needed for nausea/vomiting, Start date: 11/10/12 10:00:00, Duration: 30 day, Stop date: 12/10/12 10:59:00 insulin detemir 16 unit, 0.16 SUB-Q No Longer [place] mL, Route: Active 2012 Medical SUB-Q, Drug Center form: INJ, ONCE, Dosing Weight 100, kg, Start date: 11/10/12 0:20:00, Stop date: 11/10/12 0:20:00 NovoLog 6 unit, 0.06 mL, SUB-Q No Longer Vir[facility] Route: SUB-Q, Active 2012 Medical Drug form: SOLN, Center TID-Before Meals, Dosing Weight 100, kg, Start date: 11/09/12 16:30:00, Duration: 30 day, Stop date: 12/09/12 11:30:00 insulin aspart 7 unit, 0.07 mL, SUB-Q No Longer Loida [facility] Route: SUB-Q, Active 2012 Medical Drug form: SOLN, Center ONCE, Dosing Weight 100, kg, Start date: 11/09/12 13:24:00, Stop date: 11/09/12 13:24:00 insulin detemir 20 unit, 0.2 mL, SUB-Q No Longer Juanjo [facility] Route: SUB-Q, Active 2012 Medical Drug form: INJ, Center Daily, Dosing Weight 100, kg, Start date: 11/09/12 9:00:00, Duration: 30 day, Stop date: 12/08/12 9:00:00 morphine 1 mg, 0.5 mL, IV No Longer Chavez [facility] Sulfate Route: IV, Drug Active 2012 Medical form: INJ, ONCE, Center Dosing Weight 100, kg, Start date: 11/09/12 5:28:00, Stop date: 11/09/12 5:28:00 insulin detemir 12 unit, 0.12 SUB-Q No Longer Olejarski [facility] mL, Route: Active 2012 Medical SUB-Q, Drug Center form: INJ, Bedtime, Dosing Weight 100, kg, Start date: 11/08/12 21:00:00, Stop date: 12/07/12 21:00:00 morphine 2 mg, 1 mL, IVP No Longer Quintan[facility] Sulfate Route: IVP, Drug Active 2012 Medical form: INJ, ONCE, Center Dosing Weight 100, kg, Start date: 11/08/12 18:34:00, Stop date: 11/08/12 18:34:00 ampicillin + 1,500 mg, Route: IVPB No Longer [facility] Sodium Chloride IVPB, Drug form: Active 2012 Medical 0.9% IV 100 mL PDR/INJ, [id number], Center Dosing Weight 100, kg, Start date: 11/08/12 18:00:00, Duration: 30 day, Stop date: 12/08/12 12:00:00 ciprofloxacin 500 mg, 1 tab, PO No Longer [facility] Route: PO, Drug Active 2012 Medical form: TAB, Center [id number], Dosing Weight 100, kg, Start date: 11/08/12 17:00:00, Duration: 30 day, Stop date: 12/08/12 5:00:00 Rocephin 1 gm, Route: IVPB No Longer Janet [facility] IVPB, Drug form: Active 2012 Medical PDR/INJ, ONCE, Center Dosing Weight 100, kg, Start date: 11/08/12 13:11:00, Stop date: 11/08/12 13:11:00 insulin aspart 2 unit, 0.02 mL, SUB-Q No Longer Ada [facility] Route: SUB-Q, Active 2012 Medical Drug form: SOLN, Center TID-Before Meals, Dosing Weight 100, kg, PRN Blood Glucose Results, Start date: 11/08/12 10:45:00, Duration: 30 day, Stop date: 12/08/12 10:44:00 insulin aspart 2 unit, 0.02 mL, SUB-Q No Longer Ada [facility] Route: SUB-Q, Active 2012 Medical Drug form: SOLN, Center TID-Before Meals, Dosing Weight 100, kg, PRN Blood Glucose Results, Start date: 11/07/12 18:47:00, Duration: 30 day, Stop date: 12/07/12 18:46:00 magnesium 2 gm, 50 mL, IVPB No Longer [facility] [facility] sulfate Route: IVPB, Active 2012 Medical Drug form: INJ, Center Q2H, Dosing Weight 100, kg, Start date: 11/07/12 8:00:00, Duration: 2 doses or times, Stop date: 11/07/12 10:00:00, For Mg=1.5 - 1.7 mg/dLFor Mg=1.5 - 1.7 mg/dL magnesium 2 gm, Route: IVPB No Longer Loida [facility] sulfate IVPB, Drug form: Active 2012 Medical SOLN, ONCE, Center Dosing Weight 100, kg, Start date: 11/07/12 7:42:00, Duration: 1 doses or times, Stop date: 11/07/12 7:42:00, For Mg=1.8 - 2 mg/dLFor Mg=1.8 - 2 mg/dL Protonix 40 mg, Route: IVP No Longer Quintan[facility] IVP, Drug form: Active 2012 Medical INJ, Before Center Breakfast, Dosing Weight 100, kg, Start date: 11/07/12 7:30:00, Duration: 30 day, Stop date: 12/06/12 7:30:00 insulin aspart 10 unit, 0.1 mL, SUB-Q No Longer Ahmad [facility] Route: SUB-Q, 2012 Medical Drug form: SOLN, Center ONCE, Dosing Weight 100, kg, Start date: 11/06/12 13:32:00, Stop date: 11/06/12 13:32:00 adenosine 84 mg, Route: IVP No Longer Ahmad [facility] IVP, ONCE, 2012 Medical Dosing Weight Center 100, kg, Priority: Routine, Start date: 11/06/12 10:20:00, Stop date: 11/06/12 10:20:00 Insulin regular 10 unit, 0.1 mL, SUB-Q No Longer [facility] Route: SUB-Q, 2012 Medical Drug form: SOLN, Center ONCE, Dosing Weight 100, kg, Start date: 11/06/12 9:47:00, Stop date: 11/06/12 9:47:00 insulin aspart 10 unit, 0.1 mL, SUB-Q No Longer [facility] Route: SUB-Q, 2012 Medical Drug form: SOLN, Center ONCE, Dosing Weight 100, kg, Start date: 11/06/12 9:43:00, Stop date: 11/06/12 9:43:00 Lactated 1,000 mL, Rate: IV No Longer [place] Ringers (Bolus) 1,000 ml/hr, Active 2012 Medical IV 1,000 mL Infuse over: 1 Center hr, Route: IV, kg, Total Volume: 1,000, Bolus Dose, Priority: STAT, Start date: 11/06/12 9:14:00, Duration: 1 doses or times, Stop date: 11/06/12 10:13:00 Insulin regular 9 unit, 0.09 mL, SUB-Q No Longer [facility] Route: SUB-Q, Active 2012 Medical Drug form: SOLN, Center TID-Before Meals, Dosing Weight 100, kg, PRN Blood Glucose Results, Start date: 11/06/12 9:12:00, Duration: 30 day, Stop date: 12/06/12 9:11:00 glucagon 1 mg, Route: IM, IM No Longer [facility] [facility] Drug form: Active 2012 Medical PDR/INJ, PRN, Center Dosing Weight 100, kg, PRN Blood Glucose Results, Start date: 11/06/12 9:12:00, Duration: 30 day, Stop date: 12/06/12 10:11:00 Dextrose 50% 12.5 gm, 25 mL, IVP No Longer [place] [facility] Syringe Route: IVP, Drug Active 2012 Medical Form: INJ, Center Dosing Weight 100, kg, PRN, PRN Blood Glucose Results, Start date: 11/06/12 9:12:00, Duration: 30 day, Stop date: 12/06/12 10:11:00 Sodium Chloride 1,000 mL, Rate: IV No Longer [place] [facility] 0.9% (Bolus) IV 1,000 ml/hr, Active 2012 Medical 1,000 mL Infuse over: 1 Center hr, Route: IV, kg, Total Volume: 1,000, Priority: STAT, Start date: 11/06/12 9:06:00, Duration: 1 doses or times, Stop date: 11/06/12 10:05:00, Bolus DoseBolus Dose heparin 5000 7,500 unit, 1.5 SUB-Q No Longer [place] [facility] units/mL mL, Route: Active 2012 Medical injectable SUB-Q, Drug Center solution form: INJ, Q12H, Dosing Weight 104.545, kg, Start date: 11/06/12 9:00:00, Stop date: 12/05/12 21:00:00 prasugrel 10 mg, 1 tab, PO No Longer [facility] [facility] Route: PO, Drug Active 2012 Medical form: TAB, Center Daily, Dosing Weight 100, kg, Start date: 11/06/12 9:00:00, Duration: 30 day, Stop date: 12/05/12 9:00:00 NIFEdipine 90 mg, 1 tab, PO No Longer [place] Route: PO, Drug Active 2012 Medical form: ERTAB, Center Daily, Dosing Weight 100, kg, Start date: 11/06/12 9:00:00, Duration: 30 day, Stop date: 12/05/12 9:00:00 Toprol-XL 100 100 mg, 1 tab, PO No Longer [facility] [place] mg oral tablet, Route: PO, Drug Active 2012 Medical extended form: ERTAB, Center release Daily, Start date: 11/06/12 9:00:00, Duration: 30 day, Stop date: 12/05/12 9:00:00 magnesium oxide 400 mg, 1 tab, PO No Longer [place] Route: PO, Drug Active 2012 Medical form: TAB, Center Daily, Dosing Weight 100, kg, Start date: 11/06/12 9:00:00, Duration: 30 day, Stop date: 12/05/12 9:00:00 aspirin 81 mg 81 mg, 1 tab, PO No Longer [place] [facility] tablet, enteric Route: PO, Drug Active 2012 Medical coated form: ECTAB, Center Daily, Dosing Weight 100, kg, Start date: 11/06/12 9:00:00, Duration: 30 day, Stop date: 12/05/12 9:00:00 Cymbalta 60 mg, 2 cap, PO No Longer [place] [facility] Route: PO, Drug Active 2012 Medical form: DRC, Center Daily, Dosing Weight 100, kg, Start date: 11/06/12 9:00:00, Duration: 30 day, Stop date: 12/05/12 9:00:00 Saline Flush 5 ml, Route: IVP No Longer [place] [facility] 0.9% IVP, Drug Form: Active 2012 Medical INJ, Dosing Center Weight 104.545, kg, Q12H, Start date: 11/06/12 9:00:00, Duration: 30 day, Stop date: 12/05/12 21:00:00 insulin aspart 4 unit, 0.04 mL, SUB-Q No Longer Olejarski [facility] Route: SUB-Q, Active 2012 Medical Drug form: SOLN, [place] TID-Before Meals, Dosing Weight 100, kg, Start date: 11/06/12 7:30:00, Duration: 30 day, Stop date: 12/05/12 16:30:00 metoclopramide 10 mg, 2 mL, IVP No Longer [facility] Route: IVP, Drug Active 2012 Medical form: INJ, Q6H, Center Dosing Weight 100, kg, PRN Nausea & Vomiting, Start date: 11/06/12 1:49:00, Duration: 30 day, Stop date: 12/06/12 1:48:00 Benadryl 25 mg, 0.5 mL, IV No Longer [facility] Route: IV, Drug Active 2012 Medical form: INJ, Q4H, Center Dosing Weight 100, kg, PRN as needed for nausea/vomiting, Start date: 11/06/12 1:44:00, Duration: 30 day, Stop date: 12/06/12 1:43:00 Phenergan 12.5 mg, 0.5 mL, IVPB No Longer [facility] Route: IVPB, Active 2012 Medical Drug form: INJ, Center Q6H, Dosing Weight 100, kg, PRN Nausea & Vomiting, Start date: 11/06/12 1:43:00, Stop date: 12/06/12 1:42:00 Benadryl 25 mg, 1 cap, PO No Longer [facility] Route: PO, Drug Active 2012 Medical form: CAP, TID, Center Dosing Weight 100, kg, PRN Nausea, Start date: 11/06/12 0:31:00, Duration: 30 day, Stop date: 12/06/12 0:30:00 labetalol 20 mg, 4 mL, IVP No Longer [facility] Route: IVP, Drug Active 2012 Medical form: INJ, ONCE, Center Dosing Weight 100, kg, Start date: 11/06/12 0:25:00, Stop date: 11/06/12 0:25:00 simvastatin 40 mg, 1 tab, PO No Longer [facility] Route: PO, Drug Active 2012 Medical form: TAB, Center Bedtime, Dosing Weight 100, kg, Start date: 11/05/12 23:00:00, Duration: 30 day, Stop date: 12/05/12 21:00:00 lisinopril 20 mg, 1 tab, PO No Longer [facility] Route: PO, Drug Active 2012 Medical form: TAB, Q12H, Center Dosing Weight 100, kg, Start date: 11/05/12 23:00:00, Duration: 30 day, Stop date: 12/05/12 21:00:00 insulin detemir 20 unit, 0.2 mL, SUB-Q No Longer Olejarski [facility] Route: SUB-Q, Active 2012 Medical Drug form: INJ, Center Q12H, Dosing Weight 100, kg, Start date: 11/05/12 23:00:00, Stop date: 12/05/12 21:00:00 magnesium oxide 400 mg, 1 tab, PO Active [place] 400 mg oral PO, Daily, 2012 Medical tablet tab, Center Substitution Allowed, TAB metoprolol 100 100 mg, 1 tab, PO Active [facility] mg oral tablet, PO, Daily, 30 2012 Medical extended tab, Center release Substitution Allowed NIFEdipine 90 90 mg, 1 tab, PO Active [facility] mg oral tablet, PO, Daily, 30 2012 Medical extended tab, Center release Substitution Allowed, ERTAB prasugrel 10 mg 10 mg, 1 tab, PO Active [facility] oral tablet PO, Daily, 2012 Medical tab, Center Substitution Allowed, TAB Cymbalta 60 mg, Daily, Active [facility] Substitution 2012 [facility] Allowed [facility] tramadol 50 mg 50 mg, 1 tab, PO No Longer [place] [facility] oral tablet Route: PO, Drug Active 2012 Medical form: TAB, Q4H, Center Dosing Weight 100, kg, PRN For Pain, Start date: 11/05/12 22:39:00, Duration: 30 day, Stop date: 12/05/12 22:38:00 promethazine 25 mg, 1 tab, PO No Longer [place] [facility] Route: PO, Drug Active 2012 Medical form: TAB, Q6H, Center Dosing Weight 100, kg, PRN as needed for nausea/vomiting, Start date: 11/05/12 22:39:00, Duration: 30 day, Stop date: 12/05/12 22:38:00 Phenergan 25 mg, 1 tab, PO No Longer [place] [facility] Route: PO, Drug Active 2012 Medical form: TAB, Q4H, Center Dosing Weight 104.545, kg, PRN Nausea & Vomiting, Start date: 11/05/12 22:33:00, Duration: 30 day, Stop date: 12/05/12 22:32:00 Zofran 8 mg, 4 mL, IV No Longer [place] Route: IV, Drug Active 2012 Medical form: INJ, Q8H, Center Dosing Weight 104.545, kg, PRN Nausea, Start date: 11/05/12 22:32:00, Duration: 30 day, Stop date: 12/05/12 22:31:00 Saline Flush 5 ml, Route: IVP No Longer [place] 0.9% IVP, Drug Form: Active 2012 Medical INJ, Dosing Center Weight 104.545, kg, PRN, PRN Line Flush, Start date: 11/05/12 22:14:00, Duration: 30 day, Stop date: 12/05/12 23:13:00 Sodium Chloride 500 mL, Rate: IV No Longer [place] 0.9% (Bolus) IV 2,000 ml/hr, Active 2012 Medical 500 mL Infuse over: 15 Center minutes, Route: IV, kg, Total Volume: 500, Priority: STAT, Start date: 11/05/12 22:14:00, Duration: 1 doses or times, Stop date: 11/05/12 22:28:00 nitroglycerin 0.4 mg, 1 tab, SL No Longer [place] [facility] SL Tab Route: SL, Drug 2012 Medical form: TAB, Center Q5Min, Dosing Weight 104.545, kg, PRN Chest Pain, Start date: 11/05/12 22:14:00, Duration: 3 doses or times, Stop date: Limited # of times Phenergan 12.5 mg, Route: IVPB No Longer [place] IVPB, ONCE, Active 2012 Medical Dosing Weight Center 104.545, kg, Priority: STAT, Start date: 11/05/12 22:05:00, Stop date: 11/05/12 22:05:00 Phenergan 12.5 mg, 0.5 mL, IVPB No Longer [facility] Route: IVPB, Active 2012 Medical Drug form: INJ, Center ONCE, Dosing Weight 104.545, kg, Priority: STAT, Start date: 11/05/12 21:08:00, Stop date: 11/05/12 21:08:00 carvedilol 12.5 mg, 1 tab, PO No Longer [place] [facility] Route: PO, Drug Active 2012 Medical form: TAB, ONCE, Center Dosing Weight 104.545, kg, Start date: 11/05/12 19:20:00, Stop date: 11/05/12 19:20:00 Effient 10 mg, 1 tab, PO No Longer Dil[place] [facility] Route: PO, Drug Active 2012 Medical form: TAB, ONCE, Center Dosing Weight 104.545, kg, Start date: 11/05/12 19:16:00, Stop date: 11/05/12 19:16:00 ondansetron 4 mg, 2 mL, IVP No Longer [facility] Route: IVP, Drug Active 2012 Medical form: INJ, ONCE, Center Dosing Weight 104.545, kg, Priority: STAT, Start date: 11/05/12 19:14:00, Stop date: 11/05/12 19:14:00 aspirin 324 mg, 4 tab, PO No Longer Dil[place] [facility] Route: PO, Drug Active 2012 Medical form: [place], Center ONCE, Dosing Weight 104.545, kg, Priority: STAT, Start date: 11/05/12 19:14:00, Stop date: 11/05/12 19:14:00 Saline Flush 5 mL, Route: IVP No Longer [facility] 0.9% IVP, Drug Form: Active 2012 Medical INJ, Dosing Center Weight 104.545, kg, Q8H, PRN Line Flush, Start date: 11/05/12 19:14:00, Duration: 30 day, Stop date: 12/05/12 19:13:00, Administer at least once every 8 hoursAdminister at least once every 8 hours promethazine 25 25 mg, 1 tab, Active [place] mg oral tablet Q4H, PRN, as 2012 Medical needed for Center nausea/vomiting, Substitution Allowed aspirin 81 mg, Daily, Active [place] Substitution 2012 [facility] lisinopril 20 20 mg, 1 tab, PO Active [place] mg oral tablet PO, Daily, 30 2012 Medical tab, Center Substitution Allowed, TAB Zofran 8 mg 8 mg, 1 tab, No Longer [place] oral tablet Q8H, PRN, as Active 2012 Medical needed for Center nausea/vomiting, Substitution Allowed simvastatin 40 40 mg, 1 tab, PO Active [place] mg oral tablet PO, Daily, 30 2012 Medical tab, Center Substitution Allowed, Maintenance insulin detemir 16 unit, 0.16 SUB-Q No Longer [place] mL, Route: Active 2012 Medical SUB-Q, Drug Center form: INJ, Q12H, Dosing Weight 78.2, kg, Start date: 10/31/12 21:00:00, Duration: 30 day, Stop date: 11/30/12 9:00:00 insulin aspart 4 unit, 0.04 mL, SUB-Q Active [place] 100 units/mL SUB-Q, 2012 Medical subcutaneous TID-Before [place] solution Meals, 1 vial, 2, 2, Substitution Allowed, SOLN insulin detemir 16 unit, 0.16 SUB-Q Active [facility] 100 units/mL mL, SUB-Q, Q12H, 2012 Medical subcutaneous 1 vial, 2, 2, Center solution Substitution Allowed, INJ tramadol 50 mg 50 mg, 1 tab, PO Active [place] oral tablet PO, Q4H, PRN, 30 2012 Medical tab, as needed Center for pain, Substitution Allowed, TAB simvastatin 40 40 mg, 1 tab, PO Active [place] mg oral tablet PO, Bedtime, 30 2012 Medical tab, 1, 1, Center Substitution Allowed, Maintenance, TAB promethazine 25 25 mg, 1 tab, PO Active [place] mg oral tablet PO, Q6H, PRN, 60 2012 Medical tab, 1, 1, Center Nausea & Vomiting, Substitution Allowed, TAB prasugrel 10 mg 10 mg, 1 tab, PO Active [place] oral tablet PO, Daily, 30 2012 Medical tab, 1, 1, Center Substitution Allowed, TAB ondansetron 8 8 mg, 1 tab, PO, PO Active [place] 10/31/ [place] mg oral tablet, Q8H, PRN, 60 2012 Medical disintegrating tab, 1, 1, Center Nausea, Substitution Allowed, TABDIS NIFEdipine 90 90 mg, 1 tab, PO Active [place] 10/31/ [place] mg oral tablet, PO, Daily, 30 2012 Medical extended tab, 1, 1, Center release Substitution Allowed, ERTAB Toprol-XL 100 100 mg, 1 tab, PO Active [place] 10/31/ [place] mg oral tablet, PO, Daily, 30 2012 Medical extended tab, 1, 1, Center release Substitution Allowed, ERTAB magnesium oxide 400 mg, 1 tab, PO Active [place] 10/31/ [place] 400 mg oral PO, Daily, 30 2012 Medical tablet tab, 1, 1, Center Substitution Allowed, TAB lisinopril 20 20 mg, 1 tab, PO Active [place] 10/31/ [place] mg oral tablet PO, Q12H, 60 2012 Medical tab, 1, 1, Center Substitution Allowed, TAB aspirin 81 mg 81 mg, 1 tab, PO Active [place] [facility] tablet, enteric PO, Daily, 30 2012 Medical coated tab, 1, 1, Center Substitution Allowed, ECTAB insulin aspart 6 unit, 0.06 mL, SUB-Q No Longer [place] Route: SUB-Q, Active 2012 Medical Drug form: SOLN, [place] TID-Before Meals, Dosing Weight 78.2, kg, PRN Blood Glucose Results, Start date: 10/31/12 8:40:00, Duration: 30 day, Stop date: 11/30/12 8:39:00 Phenergan 25 mg, 1 tab, PO No Longer Steward Fe[facility] Route: PO, Drug Active 2012 Medical form: TAB, Q6H, Center Dosing Weight 78.2, kg, PRN Nausea & Vomiting, Start date: 10/30/12 8:06:00, Duration: 30 day, Stop date: 11/29/12 8:05:00 magnesium 1 gm, 50 mL, IVPB No Longer Steward Fei sulfate Route: IVPB, Active 2012 Medical Drug form: INJ, Center ONCE, Dosing Weight 78.2, kg, Start date: 10/30/12 7:44:00, Stop date: 10/30/12 7:44:00 potassium 20 mEq, 15 mL, PO No Longer Steward [facility] chloride Route: PO, Drug Active 2012 Medical form: LIQ, ONCE, Center Dosing Weight 78.2, kg, Start date: 10/30/12 7:44:00, Stop date: 10/30/12 7:44:00 Haldol 2 mg, 0.4 mL, IV No Longer Fune[place] Kamel Fei Route: IV, Drug Active 2012 Medical form: INJ, ONCE, Center Dosing Weight 78.2, kg, Start date: 10/30/12 5:42:00, Stop date: 10/30/12 5:42:00 tramadol 50 mg 50 mg, 1 tab, PO No Longer [place] [facility] oral tablet Route: PO, Drug Active 2012 Medical form: TAB, Q4H, Center Dosing Weight 78.2, kg, PRN as needed for pain, Start date: 10/29/12 9:45:00, Duration: 30 day, Stop date: 11/28/12 9:44:00 Toradol 15 15 mg, 0.5 mL, IV No Longer [place] [facility] mg/mL Route: IV, Drug Active 2012 Medical injectable form: INJ, ONCE, Center solution Dosing Weight 78.2, kg, Start date: 10/29/12 6:54:00, Stop date: 10/29/12 6:54:00 Toradol 15 15 mg, 0.5 mL, IV No Longer [place] [facility] mg/mL Route: IV, Drug Active 2012 Medical injectable form: INJ, ONCE, Center solution Dosing Weight 78.2, kg, Start date: 10/29/12 1:07:00, Stop date: 10/29/12 1:07:00 insulin detemir 20 unit, 0.2 mL, SUB-Q No Longer [place] [facility] Route: SUB-Q, Active 2012 Medical Drug form: INJ, Center QPM, Dosing Weight 78.2, kg, Start date: 10/28/12 21:00:00, Duration: 30 day, Stop date: 11/27/12 17:00:00 Lasix 20 mg, 2 mL, IV No Longer Dee Dee Jon [facility] Route: IV, Drug Active 2012 Medical form: INJ, ONCE, Center Dosing Weight 78.2, kg, Start date: 10/28/12 9:25:00, Stop date: 10/28/12 9:25:00 insulin detemir 16 unit, 0.16 SUB-Q No Longer [place] [facility] mL, Route: Active 2012 Medical SUB-Q, Drug Center form: INJ, QAM, Dosing Weight 78.2, kg, Start date: 10/28/12 9:00:00, Stop date: 11/26/12 9:00:00 NovoLog FlexPen 4 unit, 0.04 mL, SUB-Q No Longer [place] [facility] Route: SUB-Q, Active 2012 Medical Drug form: SOLN, Center TID-Before Meals, Start date: 10/28/12 7:30:00, Stop date: 11/26/12 16:30:00 magnesium 2 gm, 50 mL, IVPB No Longer Bin Fei sulfate Route: IVPB, Active 2012 Medical Drug form: INJ, Center Q2H, Dosing Weight 78.2, kg, Total dose=4 gm, Start date: 10/28/12 4:00:00, Duration: 2 doses or times, Stop date: 10/28/12 6:00:00 potassium 20 mEq, 100 mL, IVPB No Longer Bin Fei chloride Route: IVPB, Active 2012 Medical Drug form: INJ, Center Q2H, Dosing Weight 78.2, kg, Total dose=40 mEq, Start date: 10/28/12 4:00:00, Duration: 2 doses or times, Stop date: 10/28/12 6:00:00 calcium 1,000 mg, 10 mL, IVPB No Longer Bin Fei gluconate + Route: IVPB, Active 2012 Medical Sodium Chloride Drug form: INJ, Center 0.9% IV 100 mL ONCE, Dosing Weight 78.2, kg, Start date: 10/28/12 3:53:00, Stop date: 10/28/12 3:53:00 labetalol 20 mg, Route: IVP No Longer Bin 02/22[facility] IVP, Drug form: Active 2012 Medical INJ, ONCE, Center Dosing Weight 78.2, kg, Start date: 10/27/12 19:28:00, Stop date: 10/27/12 19:28:00 labetalol 20 mg, 4 mL, IVP No Longer [place] 10/27[facility] Route: IVP, Drug Active 2012 Medical form: INJ, ONCE, Center Dosing Weight 78.2, kg, Start date: 10/27/12 17:28:00, Stop date: 10/27/12 17:28:00 Benadryl 25 mg, 1 cap, PO No Longer [place] [facility] Route: PO, Drug Active 2012 Medical form: CAP, ONCE, Center Dosing Weight 78.2, kg, Start date: 10/27/12 17:28:00, Stop date: 10/27/12 17:28:00 Reglan 10 mg 10 mg, Route: PO No Longer [place] [facility] oral tablet PO, Drug form: Active 2012 Medical TAB, Before Center Meals & Bedtime, Dosing Weight 78.2, kg, Start date: 10/27/12 16:30:00, Duration: 30 day, Stop date: 11/26/12 11:30:00 Reglan 5 mg, 1 mL, IV No Longer [place] [facility] Route: IV, Drug Active 2012 Medical form: INJ, Q8H, Center Dosing Weight 78.2, kg, Start date: 10/27/12 16:00:00, Duration: 30 day, Stop date: 11/26/12 8:00:00 Reglan 5 mg, 1 mL, IV No Longer [place] [facility] Route: IV, Drug Active 2012 Medical form: INJ, Q8H, Center Dosing Weight 78.2, kg, PRN Nausea, Start date: 10/27/12 13:08:00, Duration: 30 day, Stop date: 11/26/12 13:07:00 lisinopril 20 mg, 1 tab, PO No Longer [place] [facility] Route: PO, Drug Active 2012 Medical form: TAB, Q12H, Center Dosing Weight 78.2, kg, Start date: 10/27/12 10:00:00, Duration: 30 day, Stop date: 11/26/12 9:00:00 ergocalciferol 50,000 IntlUnit, PO No Longer [place] [facility] 1 cap, Route: Active 2012 Medical PO, Drug form: Center CAP, Daily, Dosing Weight 78.2, kg, Start date: 10/27/12 9:00:00, Duration: 4 day, Stop date: 10/30/12 9:00:00 magnesium oxide 400 mg, 1 tab, PO No Longer [place] Route: PO, Drug Active 2012 Medical form: TAB, Center Daily, Dosing Weight 78.2, kg, Start date: 10/27/12 9:00:00, Duration: 30 day, Stop date: 11/25/12 9:00:00 Toprol-XL 100 100 mg, 1 tab, PO No Longer [place] [facility] mg oral tablet, Route: PO, Drug Active 2012 Medical extended form: ERTAB, [place] release Daily, Start date: 10/27/12 9:00:00, Duration: 30 day, Stop date: 11/25/12 9:00:00 insulin aspart 7 unit, Route: SUB-Q No Longer [place] [facility] SUB-Q, Drug Active 2012 Medical form: WHITLloyd [place] TID-Before Meals, Dosing Weight 78.2, kg, Start date: 10/26/12 12:00:00, Duration: 30 day, Stop date: 11/25/12 11:30:00 Insulin regular 10 unit, 0.1 mL, SUB-Q No Longer [facility] [facility] Route: SUB-Q, Active 2012 Medical [facility], Dosing Weight 78.2, kg, Start date: 10/26/12 10:32:00, Stop date: 10/26/12 10:32:00 NIFEdipine 90 mg, 1 tab, PO No Longer [place] [facility] extended Route: PO, Drug Active 2012 Medical release form: ERTAB, [place] Daily, Dosing Weight 78.2, kg, Start date: 10/26/12 9:00:00, Duration: 30 day, Stop date: 11/24/12 9:00:00 metoprolol 25 mg, 1 tab, PO No Longer [place] [facility] tartrate Route: PO, Drug Active 2012 Medical form: TAB, Q12H, Center Dosing Weight 78.2, kg, Start date: 10/26/12 9:00:00, Duration: 30 day, Stop date: 11/24/12 21:00:00 Reglan 10 mg, 1 tab, PO No Longer [place] [facility] Route: PO, Drug Active 2012 Medical form: TAB, Center Before Meals & Bedtime, Dosing Weight 78.2, kg, Start date: 10/25/12 16:30:00, Duration: 30 day, Stop date: 11/24/12 11:30:00 potassium 20 mEq, 100 mL, IVPB No Longer [place] chloride Route: IVPB, Active 2012 Medical Drug form: INJ, Center Q2H, Dosing Weight 78.2, kg, Total dose=40 mEq, Start date: 10/25/12 16:00:00, Duration: 2 doses or times, Stop date: 10/25/12 18:00:00 magnesium 2 gm, 50 mL, IVPB No Longer [place] [facility] sulfate Route: IVPB, Active 2012 Medical Drug form: INJ, Center Q2H, Dosing Weight 78.2, kg, Total dose=4 gm, Start date: 10/25/12 16:00:00, Duration: 2 doses or times, Stop date: 10/25/12 18:00:00 potassium 40 mEq, 2 tab, PO No Longer [place] chloride 20 mEq Route: PO, Drug Active 2012 Medical oral tablet, form: ERTAB, Center extended ONCE, Dosing release Weight 78.2, kg, Start date: 10/25/12 14:50:00, Stop date: 10/25/12 14:50:00 Procardia XL 30 mg, 1 tab, PO No Longer [place] [facility] Route: PO, Drug Active 2012 Medical form: ERTAB, Center ONCE, Dosing Weight 78.2, kg, Start date: 10/25/12 14:49:00, Stop date: 10/25/12 14:49:00 1/2 NS 1,000 mL 1,000 mL, Rate: IV No Longer [place] [facility] 100 ml/hr, Active 2012 Medical Infuse over: 10 Center hr, Route: IV, kg, Total Volume: 1,000, Start date: 10/25/12 13:52:00, Duration: 30 day, Stop date: 11/24/12 13:51:00 atenolol 100 mg, 1 tab, PO No Longer [place] [facility] Route: PO, Drug Active 2012 Medical form: TAB, Center Daily, Dosing Weight 78.2, kg, Start date: 10/25/12 9:00:00, Duration: 30 day, Stop date: 11/23/12 9:00:00 Protonix 40 mg, Route: IVP No Longer [place] [facility] IVP, Drug form: Active 2012 Medical INJ, Daily, Center Dosing Weight 78.2, kg, Start date: 10/25/12 9:00:00, Duration: 30 day, Stop date: 11/23/12 9:00:00 NovoLog FlexPen 6 unit, 0.06 mL, SUB-Q No Longer [place] Route: SUB-Q, 2012 Medical Drug form: SOLN, Center TID-Before Meals, Start date: 10/25/12 7:30:00, Duration: 30 day, Stop date: 11/23/12 16:30:00 insulin lispro 6 unit, Route: SUB-Q No Longer Funez [facility] SUB-Q, 2012 Medical TID-Before Center Meals, Dosing Weight 78.2, kg, Start date: 10/25/12 7:30:00, Duration: 30 day, Stop date: 11/23/12 16:30:00 Lactated 1,000 mL, Rate: IV No Longer Dee Dee Jon [facility] Ringers IV 250 ml/hr, Active 2012 Medical 1,000 mL Infuse over: 4 Center hr, Route: IV, kg, Total Volume: 1,000, Start date: 10/25/12 5:50:00, Duration: 30 day, Stop date: 11/24/12 5:49:00 Lactated 1,000 mL, Rate: [facility] (Bolus) 100 ml/hr, Active 2012 Medical IV 1,000 mL Infuse over: 10 Center hr, Route: IV, kg, Total Volume: 1,000, Start date: 10/25/12 5:50:00, Duration: 1 doses or times, Stop date: 10/25/12 15:49:00 insulin aspart 9 unit, 0.09 mL, SUB-Q No Longer [place] [facility] Route: SUB-Q, Active 2012 Medical Drug form: SOLN, Center TID-Before Meals, Dosing Weight 78.2, kg, PRN Blood Glucose Results, Start date: 10/25/12 3:53:00, Duration: 30 day, Stop date: 11/24/12 3:52:00 glucagon 1 mg, Route: IM, IM No Longer Funez [facility] Drug form: Active 2012 Medical PDR/INJ, PRN, Center Dosing Weight 78.2, kg, PRN Blood Glucose Results, Start date: 10/25/12 3:53:00, Duration: 30 day, Stop date: 11/24/12 4:52:00 Dextrose 50% 12.5 gm, 25 mL, IVP No Longer Funez [facility] 10/25[facility] Syringe Route: IVP, Drug Active 2012 Medical Form: INJ, Center Dosing Weight 78.2, kg, PRN, PRN Blood Glucose Results, Start date: 10/25/12 3:53:00, Duration: 30 day, Stop date: 11/24/12 4:52:00 Dextrose 50% 25 mL, Route: IVP No Longer Funez [facility] 10/25[facility] Syringe IVP, Dosing Active 2012 Medical Weight 78.2, kg, Center PRN, PRN Blood Glucose Results, Start date: 10/25/12 3:52:00, Duration: 30 day, Stop date: 11/24/12 4:51:00 glucagon 1 mg, Route: IM, IM No Longer Funez [facility] 10/25[facility] PRN, Dosing Active 2012 Medical Weight 78.2, kg, Center PRN Blood Glucose Results, Start date: 10/25/12 3:52:00, Duration: 30 day, Stop date: 11/24/12 4:51:00 Neutra-Phos 2 pkt, Route: PO No Longer Neeru [facility] PO, Drug Form: Active 2012 Medical PDR/REC, Dosing Center Weight 78.2, kg, ONCE, Start date: 10/25/12 1:07:00, Stop date: 10/25/12 1:07:00 insulin detemir 25 unit, 0.25 SUB-Q No Longer [place] [facility] mL, Route: Active 2012 Medical SUB-Q, Drug Center form: INJ, Q12H, Dosing Weight 78.2, kg, Priority: NOW, Start date: 10/25/12 1:06:00, Stop date: 11/23/12 21:00:00 heparin 5000 5,000 unit, 1 SUB-Q No Longer Neeru Fei units/mL mL, Route: Active 2012 Medical injectable SUB-Q, Drug Center solution form: INJ, Q8H, Dosing Weight 78.2, kg, Start date: 10/25/12 0:00:00, Duration: 30 day, Stop date: 11/23/12 16:00:00 Effient 10 mg, Route: PO No Longer Tanikella Fei PO, Q12H, Dosing Active 2012 Medical Weight 78.2, kg, Center Start date: 10/24/12 21:00:00, Duration: 30 day, Stop date: 11/23/12 9:00:00 Saline Flush 10 mL, Route: IVP No Longer Martínez Fei 0.9% IVP, Drug Form: Active 2012 Medical INJ, Dosing Center Weight 78.2, kg, Q12H, Start date: 10/24/12 21:00:00, Duration: 30 day, Stop date: 11/23/12 9:00:00 Neutra-Phos 2 pkt, Route: PO No Longer Funez Kamel [facility] PO, Drug Form: Active 2012 Medical PDR/REC, Dosing Center Weight 78.2, kg, ONCE, Start date: 10/24/12 20:35:00, Stop date: 10/24/12 20:35:00 potassium 20 mEq, 100 mL, IVPB No Longer Funez Kamel Fei chloride Route: IVPB, Active 2012 Medical Drug form: INJ, Center ONCE, Dosing Weight 78.2, kg, Start date: 10/24/12 20:34:00, Stop date: 10/24/12 20:34:00 enalapril 1.25 mg, 1 mL, IVP No Longer Funez Danay Fei Route: IVP, Drug Active 2012 Medical form: INJ, Q6H, Center Dosing Weight 78.2, kg, Start date: 10/24/12 18:00:00, Duration: 30 day, Stop date: 11/23/12 12:00:00 morphine 4 mg, 1 mL, IVP No Longer [place] [facility] Sulfate Route: IVP, Drug Active 2012 Medical form: INJ, ONCE, Center Dosing Weight 78.2, kg, Start date: 10/24/12 16:56:00, Stop date: 10/24/12 16:56:00 insulin lispro 6 unit, SUB-Q, SUB-Q No Longer Fei TID-Before 2012 Medical Meals, Center Substitution Allowed Levemir 15 unit, SUB-Q, SUB-Q No Longer Fei Q12H, 2012 Medical Substitution Center Allowed D5W 1/2NS 1,000 1,000 mL, Rate: IV No Longer Dee Dee Jon Fei mL 125 ml/hr, 2012 Medical Infuse over: 8 Center hr, Route: IV, kg, Total Volume: 1,000, Start date: 10/24/12 16:06:00, Duration: 30 day, Stop date: 11/23/12 16:05:00 metoprolol 25 mg, 1 tab, PO No Longer Funez [place] [facility] tartrate Route: PO, Drug Active 2012 Medical form: TAB, Q8H, Center Dosing Weight 78.2, kg, Start date: 10/24/12 16:00:00, Duration: 30 day, Stop date: 11/23/12 8:00:00 clonazepam 0.5 mg, 1 tab, PO No Long[facility] Route: PO, Drug Active 2012 Medical form: TAB, ONCE, Center Dosing Weight 78.2, kg, Start date: 10/24/12 15:03:00, Stop date: 10/24/12 15:03:00 NIFEdipine 60 mg, 1 tab, PO No Longer [place] [facility] extended Route: PO, Drug Active 2012 Medical release form: ERTAB, Center Daily, Dosing Weight 78.2, kg, Start date: 10/24/12 14:32:00, Duration: 30 day, Stop date: 11/23/12 9:00:00 Saline Flush 10 mL, Route: IVP No Longer Martínez Fei 0.9% IVP, Drug Form: Active 2012 Medical INJ, Dosing Center Weight 78.2, kg, PRN, PRN Line Flush, Start date: 10/24/12 13:41:00, Duration: 30 day, Stop date: 11/23/12 13:41:00 D5W 1/2NS + KCL 1,000 mL, Rate: IV No Longer Dee Dee Jon Fei 40mEq/L 1000ml 125 ml/hr, Active 2012 Medical (Premix) 1,000 Infuse over: 8 Center mL hr, Route: IV, kg, Total Volume: 1,000, Priority: STAT, Start date: 10/24/12 12:37:00, Duration: 30 day, Stop date: 11/23/12 12:36:00 Lactated 1,000 mL, Rate: IV No Longer Dee Dee Jon Fei Ringers (Bolus) 100 ml/hr, Active 2012 Medical IV 1,000 mL Infuse over: 10 Center hr, Route: IV, kg, Total Volume: 1,000, Start date: 10/24/12 12:24:00, Duration: 30 day, Stop date: 11/23/12 12:23:00 lisinopril 40 mg, 2 tab, PO No Longer [place] [facility] Route: PO, Drug Active 2012 Medical form: TAB, Center Daily, Dosing Weight 78.2, kg, Start date: 10/24/12 12:16:00, Stop date: 11/23/12 9:00:00 potassium 20 mEq, 100 mL, IVPB No Longer Dee Dee Jon Fei chloride Route: IVPB, Active 2012 Medical Drug form: INJ, Center Q2H, Dosing Weight 78.2, kg, Total dose=60 mEq, Start date: 10/24/12 12:00:00, Duration: 3 doses or times, Stop date: 10/24/12 16:00:00, For K=3.0 - 3.4mEq/LFor K=3.0 - 3.4mEq/L Lactated 1,000 mL, Rate: IV No Longer [facility] Ringers 150 ml/hr, Active 2012 Medical Injection IV Infuse over: 6.7 Center 1,000 mL hr, Route: IV, kg, Total Volume: 1,000, Start date: 10/24/12 11:50:00, Duration: 30 day, Stop date: 11/23/12 11:49:00 lisinopril 20 mg, 1 tab, PO No Longer [facility] Route: PO, Drug Active 2012 Medical form: TAB, Center Daily, Dosing Weight 78.2, kg, Priority: STAT, Start date: 10/24/12 11:44:00, Duration: 30 day, Stop date: 11/23/12 9:00:00 Effient 10 mg, 1 tab, PO No Longer Tanikella Fei Route: PO, Drug Active 2012 Medical form: TAB, Center Daily, Dosing Weight 78.2, kg, Start date: 10/24/12 11:00:00, Duration: 30 day, Stop date: 11/23/12 9:00:00 lisinopril 5 mg, 1 tab, PO No Longer Funez [facility] Fei Route: PO, Drug Active 2012 Medical form: TAB, Center Daily, Dosing Weight 78.2, kg, Priority: NOW, Start date: 10/24/12 10:53:00, Duration: 30 day, Stop date: 11/23/12 9:00:00 potassium 40 mEq, 2 tab, PO No Longer Funez [facility] Fei chloride Route: PO, Drug Active 2012 Medical form: ERTAB, Center ONCE, Dosing Weight 78.2, kg, Priority: NOW, Start date: 10/24/12 10:50:00, Stop date: 10/24/12 10:50:00 magnesium 2 gm, 50 mL, IVPB No Longer Tanikella Fei sulfate Route: IVPB, Active 2012 Medical Drug form: INJ, Center ONCE, Dosing Weight 78.2, kg, Total dose=2 gm, Priority: NOW, Start date: 10/24/12 10:50:00, Duration: 1 doses or times, Stop date: 10/24/12 10:50:00 aspirin 81 mg 81 mg, 1 tab, PO No Longer Tanikella Fei tablet, enteric Route: PO, Drug Active 2012 Medical coated form: ECTAB, Center Daily, Dosing Weight 78.2, kg, Priority: NOW, Start date: 10/24/12 10:43:00, Duration: 30 day, Stop date: 11/23/12 9:00:00 metoprolol 12.5 mg, 1 ea, PO No Longer Dee Dee Jon Fei tartrate Route: PO, Drug Active 2012 Medical form: TAB, Q12H, Center Dosing Weight 78.2, kg, Priority: NOW, Start date: 10/24/12 10:42:00, Duration: 30 day, Stop date: 11/23/12 9:00:00 nitroglycerin 250 mL, Rate: as IV No Longer Dee Dee Jon Fei 50 mg directed, Route: Active 2012 Medical IV, kg, Total Center Volume: 250, Start date: 10/24/12 10:00:00, Duration: 30 day, Stop date: 11/23/12 9:59:00 Zofran 8 mg, 4 mL, IV No Longer Steward Fei Route: IV, Drug Active 2012 Medical form: INJ, Q8H, Center Dosing Weight 78.2, kg, PRN Nausea, Priority: NOW, Start date: 10/24/12 7:56:00, Stop date: 11/23/12 7:55:00 metoprolol 5 5 mg, Route: IV, IV No Longer Pam Fei mg/5 ml INJ ONCE, Dosing Active 2012 Medical Weight 78.2, kg, Center Priority: NOW, Start date: 10/24/12 7:55:00, Stop date: 10/24/12 7:55:00 nitroglycerin 100 mg, 250 mL, IV No Longer Pam Fei 100 mg in 250 Rate: Infuse as Active 2012 Medical ml D5W Premix directed, Dosing Center (titrate) 100 Weight 78.2, kg, mg Route: IV, Total Volume: 250 mL, Start date: 10/24/12 7:55:00, Duration: 30 day, Stop date: 11/23/12 8:54:00, Replace Every: 24 hr aspirin 200 mg, 1 supp, [place] No Longer Orozco Fei Route: WI, Drug Active 2012 Medical form: SUPP, Center ONCE, Dosing Weight 78.2, kg, Priority: NOW, Start date: 10/24/12 7:54:00, Stop date: 10/24/12 7:54:00 metoprolol 5 5 mg, 5 mL, IV No Longer Brian [place] mg/5 ml INJ Route: IV, Drug Active 2012 Medical form: INJ, ONCE, Center Dosing Weight 113.636, kg, Priority: STAT, Start date: 10/23/12 21:01:00, Stop date: 10/23/12 21:01:00 Zocor 40 mg, 1 tab, PO No Longer Brian Fei Route: PO, Drug Active 2012 Medical form: TAB, Center Bedtime, Dosing Weight 113.636, kg, Start date: 10/23/12 21:00:00, Duration: 30 day, Stop date: 11/21/12 21:00:00 morphine 2 mg, 1 mL, IVP No Longer Brian Fei Sulfate Route: IVP, Drug Active 2012 Medical form: INJ, ONCE, Center Dosing Weight 113.636, kg, Priority: STAT, Start date: 10/23/12 19:49:00, Stop date: 10/23/12 19:49:00 heparin 4,700 unit, 4.7 IV No Longer Mosley Fei mL, Route: IV, Active 2012 Medical Drug form: INJ, Center PRN, PRN Abnormal Lab Result, Start date: 10/23/12 19:40:00, Duration: 30 day, Stop date: 11/22/12 20:39:00 heparin 2,300 unit, 2.3 IV No Longer Mosley Fei mL, Route: IV, Active 2012 Medical Drug form: INJ, Center PRN, PRN Abnormal Lab Result, Start date: 10/23/12 19:37:00, Duration: 30 day, Stop date: 11/22/12 20:36:00 heparin 4,000 unit, 4 IV No Longer Mosley Fei mL, Route: IV, Active 2012 Medical Drug form: INJ, Center ONCE, Start date: 10/23/12 19:31:00, Stop date: 10/23/12 19:31:00 aspirin 325 mg, 1 tab, PO No Longer Tanikella Fei Route: PO, Drug Active 2012 Medical form: TAB, Center Daily, Dosing Weight 113.636, kg, Priority: NOW, Start date: 10/23/12 19:03:00, Duration: 30 day, Stop date: 11/22/12 9:00:00 Heparin - 25,000 unit, 500 IV No Longer Tanikella Fei infusion (ACS mL, Rate: Start Active 2012 Medical Protocol) at 12 Center heparin 25,000 units/kg/hr (Max units in D5W Initial dose 500 mL Premix 1,000 un, Dosing 25,000 unit Weight 78.27, kg, Route: IV, Total Volume: 500 ml, Start date: 10/23/12 17:57:00, Duration: 30 day, Stop date: 11/22/12 17:56:00, Replace Every: 24 hr Visipaque 126 mL, Route: IVP No Longer Pauline Fei 320mg/ml IVP, Drug Form: Active 2012 Medical SOLN, Dosing Center Weight 113.636, kg, ONCALL, STAT, Start date: 10/23/12 16:52:00, Duration: 1 doses or times, Dose=2.2ml/kg, Max [id number] -- "To be infused by Radiology Staff ONLY"Dose=2.2ml/ kg, Max [id number] -- "To be infused by Radiology Staff ONLY" magnesium 2 gm, 50 mL, IVPB No Longer Isaac Fei sulfate Route: IVPB, Active 2012 Medical Drug form: INJ, Center ONCE, Dosing Weight 113.636, kg, Start date: 10/23/12 16:10:00, Duration: 1 doses or times, Stop date: 10/23/12 16:10:00, For Mg=1.8 - 2 mg/dLFor Mg=1.8 - 2 mg/dL D5W 1/2NS 1,000 1,000 mL, Rate: IV No Longer Dee Dee Jon Fei mL 200 ml/hr, Active 2012 Medical Infuse over: 5 Center hr, Route: IV, kg, Total Volume: 1,000, Start date: 10/23/12 14:21:00, Stop date: 11/22/12 14:20:00 Omnipaque 130 mL, Route: IVP No Longer Carpenter Fei 350mg/ml IVP, Drug Form: Active 2012 Medical SOLN, Dosing Center Weight 113.636, kg, ONCALL, STAT, Start date: 10/23/12 10:42:00, Duration: 1 doses or times, Dose=2.2ml/kg, Max [id number] -- "To be infused by Radiology Staff ONLY"Dose=2.2ml/ kg, Max [id number] -- "To be infused by Radiology Staff ONLY" Insulin 100 mL, Rate: IV No Longer [place] Fei (regular) 0.1units/kg/hour Active 2012 Medical Titrate IV Titrate, Dosing Center additive 100 Weight 113.636, unit + Sodium kg, Route: IV, Chloride 0.9% Total Volume: (titrate) 100 101, Duration: mL 30 day, Stop date: 11/22/12 10:16:00, Replace Every: 24 hr Dextrose 50% 25 gm, 50 ml, IVP No Longer Isaac Fei Syringe Route: IVP, Drug Active 2012 Medical Form: INJ, Center Dosing Weight 113.636, kg, PRN, PRN Blood Glucose Results, Start date: 10/23/12 10:16:00, Duration: 30 day, Stop date: 11/22/12 11:15:00 Sodium Chloride 1,000 mL, Rate: IV No Longer Isaac Fei 0.9% IV 1,000 250 ml/hr, Active 2012 Medical mL Infuse over: 4 Center hr, Route: IV, kg, Total Volume: 1,000, Start date: 10/23/12 10:16:00, Stop date: 11/22/12 10:20:00 folic acid 1 mg Route: IV, Q24H, IV No Longer Kristy Fei + Vitamin B1 Start date: Active 2012 Medical 100 mg + M.V.I. 10/23/12 Center Adult 10 mL + 9:00:00, potassium Duration: 3 day, chloride 20 mEq Stop date: + Dextrose 5% 10/25/12 9:00:00 Sodium Chloride 1,000 mL, Rate: IV No Longer Isaac [facility] 0.9% IV 1,000 100 ml/hr, Active 2012 Medical mL + M.V.I.-12 Infuse over: Center 10 mL Daily + 10.1 hr, Route: folic acid IV 1 IV, kg, Total mg Daily + Volume: 1,011.2, thiamine IV 1 Start date: 10/23/12 8:41:00, Duration: 3 day, Stop date: 10/26/12 8:40:00 Insulin regular 100 mL, Rate: IVPB No Longer Isaac [facility] 100 unit + Start Insulin Active 2012 Medical Sodium Chloride Drip Per ICU Center 0.9% (titrate) Protocol, Dosing 100 mL Weight 113.636, kg, Route: IVPB, Total Volume: 101, Duration: 30 day, Stop date: 11/22/12 8:17:00, Replace Every: 24 hr, Initial Insulin Drip Rate (units/hour)=(Fa sting Blood Glucose-60)X0.03 "...Initial Insulin Drip Rate (units/hour)=(Fa sting Blood Glucose-60)X0.03 "multiplier". Dextrose 50% 25 gm, 50 mL, IVP No Longer Isaac [place] Syringe Route: IVP, Drug Active 2012 Medical Form: INJ, Center Dosing Weight 113.636, kg, PRN, PRN Blood Glucose Results, Start date: 10/23/12 8:17:00, Duration: 30 day, Stop date: 11/22/12 9:16:00 normal saline 1,000 mL, Rate: IV No Longer Isaac [place] 0.9% IV 1,000 150 ml/hr, Active 2012 Medical mL Infuse over: 6.7 Center hr, Route: IV, kg, Total Volume: 1,000, Start date: 10/23/12 5:07:00, Duration: 30 day, Stop date: 11/22/12 5:06:00 NS (Bolus) IV 1,000 mL, 0 IV No Longer Kristy [facility] ml/hr, Route: Active 2012 Medical IV, Drug Form: Center INJ, Dosing Weight 113.636, kg, ONCE, STAT, Start date: 10/23/12 5:06:00, Duration: 1 doses or times, Stop date: 10/23/12 5:06:00 hydrALAZINE 10 mg, 0.5 mL, IV No Longer Funez Kamel [facility] Route: IV, Drug Active 2012 Medical form: INJ, Q4H, Center Dosing Weight 113.636, kg, PRN Other -See Comment, Start date: 10/23/12 0:38:00, Duration: 30 day, Stop date: 11/22/12 0:37:00, hypertesnion acetaminophen 650 mg, 1 supp, [place] No Longer Kristy [place] Route: WI, Drug Active 2012 Medical form: SUPP, Q6H, Center Dosing Weight 113.636, kg, PRN Fever, Start date: 10/23/12 0:37:00, Duration: 30 day, Stop date: 11/22/12 0:36:00 Dilaudid 0.5 mg, 0.25 mL, IV No Longer Dalton [facility] Route: IV, Drug Active 2012 Medical form: INJ, Q2H, Center Dosing Weight 113.636, kg, PRN Pain, Start date: 10/23/12 0:37:00, Duration: 30 day, Stop date: 11/22/12 0:36:00 metoprolol 5 5 mg, 5 mL, IVP No Longer Dee Dee Jon [facility] mg/5 ml INJ Route: IVP, Drug Active 2012 Medical form: INJ, Q3H, Center Dosing Weight 113.636, kg, PRN Hypertension, Start date: 10/23/12 0:35:00, Duration: 30 day, Stop date: 11/22/12 0:34:00 Insulin regular 2 unit, 0.02 mL, SUB-Q No Longer Isaac [facility] Route: SUB-Q, Active 2012 Medical Drug form: SOLN, Center Sliding Scale, Dosing Weight 113.636, kg, PRN Blood Glucose Results, Start date: 10/23/12 0:26:00, Duration: 30 day, Stop date: 11/22/12 1:25:00 glucagon 1 mg, Route: IM, IM No Longer Isaac [place] Drug form: Active 2012 Medical PDR/INJ, PRN, Center Dosing Weight 113.636, kg, PRN Blood Glucose Results, Start date: 10/23/12 0:26:00, Duration: 30 day, Stop date: 11/22/12 1:25:00 Dextrose 50% 25 gm, 50 mL, IVP No Longer Isaac [place] Syringe Route: IVP, Drug Active 2012 Medical Form: INJ, Center Dosing Weight 113.636, kg, PRN, PRN Blood Glucose Results, Start date: 10/23/12 0:26:00, Duration: 30 day, Stop date: 11/22/12 1:25:00 Zofran ODT 8 mg, 1 tab, PO No Longer Seneca [place] Route: PO, Drug Active 2012 Medical form: TABDIS, Center Q8H, Dosing Weight 113.636, kg, PRN Nausea, Start date: 10/23/12 0:02:00, Stop date: 11/22/12 0:01:00 heparin 5,000 unit, SUB-Q No Longer Brian [place] Route: SUB-Q, Active 2012 Medical Q8H, Dosing Center Weight 113.636, kg, Start date: 10/23/12 0:00:00, Duration: 30 day, Stop date: 11/21/12 16:00:00 carvedilol 25 Daily, No Longer [place] mg oral tablet Substitution Active 2012 Medical Allowed [place] Diovan HCT 160 1 tab, PO, PO No Longer [place] mg-12.5 mg oral Daily, 30 tab, Active 2012 Medical tablet Substitution Center Allowed, Maintenance, TAB D5W 1/2NS + KCL 1,000 mL, Rate: IV No Longer Isaac [place] 20mEq/L 1000ml 150 ml/hr, Active 2012 Medical (Premix) 1,000 Infuse over: 6.7 Center mL hr, Route: IV, kg, Total Volume: 1,000, Start date: 10/22/12 22:32:00, Duration: 30 day, Stop date: 11/21/12 22:31:00 Phenergan 25 mg, 1 mL, IVPB No Longer Bin Fei Route: IVPB, Active 2012 Medical Drug form: INJ, Center Q6H, PRN Nausea, Start date: 10/22/12 22:31:00, Stop date: 11/21/12 22:30:00 Lortab 500 15 ml, PO, Q4H, PO Active Pauline Fei mg-7.5 mg/15 mL PRN, 250 mL, for 2013 Medical oral elixir pain, Center Substitution Allowed, Maintenance, ELIX Coreg 25 mg, 1 tab, PO No Longer Sushila Fei Route: PO, Drug Active 2012 Medical form: TAB, Q12H, Center Dosing Weight 118.2, kg, Start date: 10/07/12 21:00:00, Duration: 30 day, Stop date: 11/06/12 9:00:00 Cipro 500 mg, 10 mL, [place] No Longer Pauline Fei Route: [place], Drug Active 2012 Medical form: SUSP, Center Q12H, Dosing Weight 118.2, kg, Start date: 10/07/12 20:00:00, Duration: 7 day, Stop date: 10/14/12 8:00:00 Diovan 160 mg, 1 tab, PO No Longer Sushila Fei Route: PO, Drug Active 2012 Medical form: TAB, Center Daily, Dosing Weight 118.2, kg, Start date: 10/07/12 17:00:00, Duration: 30 day, Stop date: 11/06/12 9:00:00 ciprofloxacin 500 mg, 10 mL, [place] No Longer Pauline Fei Route: [place], Drug Active 2012 Medical form: SUSP, Center Q12H, Dosing Weight 118.2, kg, Start date: 10/07/12 14:30:00, Duration: 7 day, Stop date: 10/14/12 9:00:00 [place] 325 mg-10 15 mL, Route: PO No Longer Sushila Fei mg / 15 mL oral PO, Drug Form: Active 2012 Medical solution SOLN, Dosing Center Weight 118.2, kg, Q4H, PRN For Pain, Start date: 10/07/12 14:22:00, Duration: 30 day, Stop date: 11/06/12 14:21:00 Diovan 160 mg, 1 tab, PO No Longer Sushila Fei Route: PO, Drug Active 2012 Medical form: TAB, Center Daily, Dosing Weight 118.2, kg, Start date: 10/07/12 14:00:00, Duration: 30 day, Stop date: 11/06/12 9:00:00 Coreg 25 mg, 1 tab, PO No Longer Sushila Fei Route: PO, Drug Active 2012 Medical form: TAB, Q12H, Center Dosing Weight 118.2, kg, Start date: 10/07/12 14:00:00, Duration: 30 day, Stop date: 11/06/12 9:00:00 potassium 20 mEq, 100 mL, IVPB No Longer Bagshahi [place] chloride Route: IVPB, Active 2012 Medical Drug form: INJ, Center ONCE, Dosing Weight 118.2, kg, Total dose=20 mEq, Start date: 10/07/12 7:53:00, Duration: 1 doses or times, Stop date: 10/07/12 7:53:00, For K=3.5 - 3.9 mEq/LFor K=3.5 - 3.9 mEq/L Blistex 1 appl, Route: TOP No Longer [facility] TOP, PRN, Drug Active 2012 Medical form: STIC PRN Center Other -See Comment, Start date: 10/06/12 22:48:00, Duration: 30 day, Stop date: 11/05/12 22:47:00 Blistex Lip Route: TOP, TOP No Longer [facility] [place] Dosing Weight Active 2012 Medical 118.2, kg, PRN, Center PRN, Start date: 10/06/12 22:46:00, Duration: 30 day, Stop date: 11/05/12 22:45:00, prn Dilaudid 0.2 mg, 0.1 mL, IV No Longer Sushila Fie Route: IV, Drug Active 2012 Medical form: INJ, Q4H, Center Dosing Weight 118.2, kg, PRN Pain, Start date: 10/06/12 14:47:00, Duration: 30 day, Stop date: 11/05/12 14:46:00 Zofran 4 mg, 2 mL, IV No Longer Low Fei Route: IV, Drug Active 2012 Medical form: INJ, Q4H, Center Dosing Weight 118.2, kg, PRN Nausea, Start date: 10/06/12 14:47:00, Duration: 30 day, Stop date: 11/05/12 14:46:00 metoprolol 5 5 mg, 5 mL, IVP No Longer Sushila [facility] mg/5 ml INJ Route: IVP, Drug Active 2012 Medical form: INJ, Q6H, Center Dosing Weight 118.2, kg, Start date: 10/06/12 12:00:00, Duration: 30 day, Stop date: 11/05/12 6:00:00 magnesium 2 gm, 50 mL, IVPB No Longer Low Fei sulfate Route: IVPB, Active 2012 Medical Drug form: INJ, Center Q2H, Dosing Weight 118.2, kg, Total dose=4 gm, Start date: 10/06/12 12:00:00, Duration: 2 doses or times, Stop date: 10/06/12 14:00:00 dexamethasone 4 mg, 1 mL, IV No Longer Sushila Fei Route: IV, Drug Active 2012 Medical form: INJ, ONCE, Center Start date: 10/06/12 9:00:00, Stop date: 10/06/12 9:00:00 acetaminophen-h 30 mL, Route: PO No Longer Sushila Fei ydrocodone 325 PO, Drug Form: Active 2012 Medical mg-10 mg/15 mL SOLN, Q4H, PRN Center oral solution Pain, Start date: 10/06/12 7:33:00, Duration: 30 day, Stop date: 11/05/12 7:32:00 morphine 2 mg, 1 mL, IVP No Longer Low Fei Sulfate Route: IVP, Drug Active 2012 Medical form: INJ, Q2H, Center Dosing Weight 118.2, kg, PRN Pain, Start date: 10/05/12 23:45:00, Duration: 30 day, Stop date: 11/04/12 23:44:00 Levemir FlexPen 20 unit, 0.2 mL, SUB-Q No Longer Sushila Fei Route: SUB-Q, Active 2012 Medical Drug form: INJ, Center Q12H, Start date: 10/05/12 21:00:00, Duration: 30 day, Stop date: 11/04/12 9:00:00 carvedilol 25 mg, 1 tab, PO No Longer Sushila [place] Route: PO, Drug Active 2012 Medical form: TAB, Q12H, Center Dosing Weight 118.2, kg, Start date: 10/04/12 21:00:00, Duration: 30 day, Stop date: 11/03/12 9:00:00 Harriman 325 mg-10 30 mL, Route: PO No Longer Allenson Fei mg / 15 mL oral PO, Drug Form: Active 2012 Medical solution SOLN, Dosing Center Weight 118.2, kg, Q4H, PRN Pain Score 6-10, Start date: 10/04/12 17:20:00, Duration: 30 day, Stop date: 11/03/12 17:19:00 Diovan 160 mg, 1 tab, PO No Longer Sushila [facility] Route: PO, Drug Active 2012 Medical form: TAB, Center Daily, Dosing Weight 118.2, kg, Start date: 10/04/12 14:00:00, Duration: 30 day, Stop date: 11/03/12 9:00:00 Trandate 10 mg, 2 mL, IVP No Longer Low [place] Route: IVP, Drug Active 2012 Medical form: INJ, Q4H, Center PRN Elevated BP, Start date: 10/04/12 9:05:00, Duration: 30 day, Stop date: 11/03/12 9:04:00 hydrALAZINE 20 mg, 1 mL, IVP No Longer Low [facility] Route: IVP, Drug Active 2012 Medical form: INJ, Q4H, Center Dosing Weight 118.2, kg, PRN Elevated BP, Start date: 10/04/12 9:00:00, Duration: 30 day, Stop date: 11/03/12 8:59:00, sbp > 160 heparin 5,000 unit, 1 SUB-Q No Longer Sushila Fei mL, Route: Active 2012 Medical SUB-Q, Drug Center form: INJ, Q8H, Start date: 10/04/12 8:00:00, Duration: 30 day, Stop date: 11/03/12 0:00:00 Lactated 1,000 mL, Rate: IV No Longer Pauline Fei Ringers 125 ml/hr, Active 2012 Medical Injection IV Infuse over: 8 Center 1,000 mL hr, Route: IV, kg, Total Volume: 1,000, Start date: 10/04/12 7:38:00, Stop date: 11/03/12 7:37:00 Levemir 20 unit, 0.2 mL, SUB-Q No Longer Low Fei Route: SUB-Q, Active 2012 Medical Drug form: INJ, Center Q12H, Dosing Weight 118.2, kg, Priority: NOW, Start date: 10/04/12 7:02:00, Duration: 30 day, Stop date: 11/02/12 21:00:00 hydrALAZINE 10 mg, 0.5 mL, IVP No Longer Low Fei Route: IVP, Drug Active 2012 Medical form: INJ, ONCE, Center Dosing Weight 118.2, kg, Start date: 10/04/12 6:53:00, Stop date: 10/04/12 6:53:00 labetalol 10 mg, 2 mL, IVP No Longer Low Fei Route: IVP, Drug Active 2012 Medical form: INJ, Center Q15Min, Dosing Weight 118.2, kg, PRN Hypertension, Start date: 10/04/12 5:11:00, Duration: 3 doses or times, Stop date: Limited # of times Insulin regular 12 unit, 0.12 SUB-Q No Longer Dru Fei mL, Route: Active 2012 Medical SUB-Q, Drug Center form: SOLN, Sliding Scale, Dosing Weight 118.2, kg, PRN Blood Glucose Results, Start date: 10/04/12 0:40:00, Duration: 30 day, Stop date: 11/03/12 0:39:00 Dextrose 50% 25 gm, 50 mL, IVP No Longer Morason Fei Syringe Route: IVP, Drug Active 2012 Medical Form: INJ, Center Dosing Weight 118.2, kg, PRN, PRN Blood Glucose Results, Start date: 10/04/12 0:40:00, Duration: 30 day, Stop date: 11/03/12 0:39:00 glucagon 1 mg, Route: IM, IM No Longer [facility] Drug form: Active 2012 Medical PDR/INJ, PRN, Center Dosing Weight 118.2, kg, PRN Blood Glucose Results, Start date: 10/04/12 0:40:00, Duration: 30 day, Stop date: 11/03/12 0:39:00 Ofirmev 1,000 mg, 100 IV No Longer [facility] mL, Route: IV, Active 2012 Medical Drug form: INJ, Center Q6H, Start date: 10/03/12 18:00:00, Duration: 4 doses or times, Stop date: 10/04/12 12:00:00 Mefoxin 2 gm, Route: IVPB No Longer [facility] IVPB, Drug form: Active 2012 Medical INJ, [id number], [place] Start date: 10/03/12 16:00:00, Duration: 2 doses or times, Stop date: 10/04/12 0:00:00 Lopressor 5 mg, 5 mL, IV No Longer Low [facility] Route: IV, Drug Active 2012 Medical form: INJ, Q6H, Center Start date: 10/03/12 16:00:00, Duration: 30 day, Stop date: 11/02/12 10:00:00 Humulin R 100 10 unit, 0.1 mL, SUB-Q No Longer [facility] units/mL Route: SUB-Q, Active 2012 Medical injectable Drug form: [facility] solution TID-Before Meals, PRN Blood Glucose Results, Start date: 10/03/12 14:30:00, Duration: 30 day, Stop date: 11/02/12 14:29:00 Dextrose 50% in 50 mL, Route: IV No Longer [facility] 10/03[facility] IV IV, Start date: Active 2012 Medical 10/03/12 [place] 14:29:00, Duration: 30 day, Stop date: 11/02/12 14:28:00, PRN Blood Glucose Results Dextrose 50% in 25 mL, Route: IVP No Longer [facility] 10/03[facility] IV IVP, Start date: Active 2012 Medical 10/03/12 [place] 14:28:00, Duration: 30 day, Stop date: 11/02/12 14:27:00, PRN Blood Glucose Results Zofran 4 mg, 2 mL, IVP No Longer Low [place] Route: IVP, Drug Active 2012 Medical form: INJ, Q8H, Center PRN Nausea, Start date: 10/03/12 14:22:00, Duration: 30 day, Stop date: 11/02/12 14:21:00 naloxone 0.2 mg, 0.5 mL, IV No Longer Bagshahi [place] Route: IV, Drug Active 2012 Medical form: INJ, PRN, Center PRN Narcotic Reversal, Start date: 10/03/12 14:21:00, Duration: 30 day, Stop date: 11/02/12 14:20:00 hydromorphone IV, Start date: IV No Longer Low [place] 15 mg 10/03/12 Active 2012 Medical 14:19:00, Center Duration: 30, 30 ml, 118.2 Phenergan 12.5 mg, 0.5 mL, IVPB No Longer Bagshi [place] Route: IVPB, Active 2012 Medical Drug form: INJ, Center Q4H, PRN Nausea, Start date: 10/03/12 14:08:00, Duration: 30 day, Stop date: 11/02/12 14:07:00 Phenergan 12.5 mg, 0.5 mL, IM No Longer Bagshi [place] Route: IM, Drug Active 2012 Medical form: INJ, Q4H, Center PRN Nausea, Start date: 10/03/12 14:07:00, Duration: 30 day, Stop date: 11/02/12 14:06:00 Benadryl 25 mg, 0.5 mL, IM No Longer Sushila [place] Route: IM, Drug Active 2012 Medical form: INJ, Center Bedtime, PRN Insomnia, Start date: 10/03/12 14:04:00, Duration: 30 day, Stop date: 11/02/12 14:03:00 Lactated 1,000 mL, Rate: IV No Longer Low [place] Ringers 125 ml/hr, Active 2012 Medical Injection IV Infuse over: 8 Center 1,000 mL hr, Route: IV, kg, Total Volume: 1,000, Start date: 10/03/12 14:00:00, Duration: 30 day, Stop date: 11/02/12 13:59:00 ondansetron 4 mg, 2 mL, IVP No Longer Jose [facility] Route: IVP, Drug Active 2012 Medical form: INJ, ONCE, Center Dosing Weight 118.182, kg, PRN Nausea & Vomiting, Start date: 10/03/12 11:00:00 acetaminophen-o 1 tab, Route: PO No Longer Jose Fei xycodone 325 PO, Drug Form: Active 2012 Medical mg-5 mg oral TAB, Dosing Center tablet Weight 118.182, kg, Q4H, PRN Pain Score 1-3, Start date: 10/03/12 11:00:00, Stop date: 10/04/12 0:00:00 hydromorphone 0.5 mg, 0.25 mL, IVP No Longer Jose [facility] Route: IVP, Drug Active 2012 Medical form: INJ, Center Q5Min, Dosing Weight 118.182, kg, PRN Pain Score 4-6, Start date: 10/03/12 11:00:00, Duration: 5 doses or times, Stop date: 10/04/12 0:00:00 Lactated 1,000 mL, Rate: IV No Longer Jose Fei [place] 50 ml/hr, Infuse Active 2012 Medical Injection IV over: 20 hr, Center 1,000 mL Route: IV, kg, Total Volume: 1,000, Start date: 10/03/12 11:00:00, Duration: 30 day, Stop date: 11/02/12 10:59:00 heparin 5,000 unit, 1 SUB-Q No Longer Sushila Fei mL, Route: Active 2012 Medical SUB-Q, Drug Center form: INJ, PRE OP, Start date: 10/03/12 6:00:00, Duration: 1 day, Stop date: 10/04/12 5:59:00 scopolamine 1 patch, Route: TOP No Longer Sushila Fei TOP, Drug form: Active 2012 Medical ERFILM, PRE OP, Center Start date: 10/03/12 6:00:00, Duration: 1 day, Stop date: 10/04/12 5:59:00 Mefoxin 2 gm, Route: IVPB No Longer Sushila [place] IVPB, Drug form: Active 2012 Medical INJ, PRE OP, Center Priority: STAT, Start date: 10/03/12 5:50:00, Duration: 1 day, Stop date: 10/04/12 5:49:00 Mobic 15 mg 10 mg, PO, PO Active [place] oral tablet Daily, 30 tab, 2012 Medical Substitution Center Allowed, TAB Zetia Daily, Active [facility] Substitution 2011 Medical Allowed Center Klor-Con 10 10 mEq, 1 tab, PO Active [facility] oral tablet, PO, Daily, 180 2011 Medical extended tab, Center release Substitution Allowed, ERTAB ferrous 324 mg, 1 tab, PO Active [facility] gluconate 324 PO, Daily, 100 2011 Medical mg oral tablet tab, Center Substitution Allowed, TAB Lasix 40 mg 40 mg, 1 tab, PO Active [facility] oral tablet PO, Daily, 30 2011 Medical tab, Center Substitution Allowed, TAB Cymbalta 60 mg 60 mg, 1 cap, PO Active [facility] oral delayed PO, BID, 30 cap, 2011 Medical release capsule Substitution Center Allowed, ECCAP Crestor 20 mg 20 mg, 1 tab, PO Active [facility] oral tablet PO, Daily, 30 2011 Medical tab, Center Substitution Allowed, TAB Flexeril 10 mg 10 mg, 1 tab, PO Active [facility] oral tablet PO, TID, PRN, 30 2011 Medical tab, for spasm, Center Substitution Allowed, TAB Lyrica 150 mg 150 mg, 1 cap, PO Active [facility] oral capsule PO, BID, 90 cap, 2011 Medical Substitution Center Allowed, CAP Klonopin 0.5 mg 0.5 mg, 1 tab, PO Active [place] oral tablet PO, TID, 2011 Medical Substitution Center Allowed, TAB Diovan 160 mg 160 mg, 1 tab, PO Active [facility] oral tablet PO, Daily, 30 2011 Medical tab, Center Substitution Allowed, TAB carvedilol 25 25 mg, 1 tab, PO Active [place] mg oral tablet PO, BID, 60 tab, 2011 Medical Substitution Center Allowed, TAB omeprazole 20 20 mg, 1 tab, PO Active [place] mg oral enteric PO, Daily, 30 2011 Medical coated tablet tab, Center Substitution Allowed, ECTAB Abilify 10 mg 10 mg, 1 tab, PO Active [place] oral tablet PO, Daily, 30 2011 Medical tab, Center Substitution Allowed, TAB buPROPion 150 150 mg, 1 tab, PO Active [place] mg oral tablet, PO, Daily, 60 2011 Medical extended tab, Center release Substitution Allowed, ERTAB metFORmin 1000 1,000 mg, 1 tab, PO Active [place] mg oral tablet PO, BID, 30 tab, 2011 Medical Substitution Center Allowed NovoLog Substitution Active [place] Allowed 2011 [facility] Center Levemir FlexPen Substitution Active [facility] Allowed 2011 [facility] Allergies, Adverse Reactions, Alerts Substance Category Reaction Severity Reaction Status Date Comments Source type Reported NKDA drug Allergy Active [facility] Immunizations Immunization Date Given Site Status Last Updated Comments Source influenza virus 07/14/2013 completed Diony [facility] vaccine, [facility] inactivated Center pneumococcal 07/14/2013 completed Diony [facility] 23-valent vaccine [facility] Results Order Name Results Value Reference Date Interpretation Comments Source Range CHEMISTRY U Preg Negative Negative 08/13 Normal [facility] (08/13/2013 13:30:00) [place] URINALYSIS UA RBC 0-2 /HPF 0 - 2 08/13 Normal [facility]2012 [facility] URINALYSIS UA WBC 3-5 /HPF None Seen 08/13 Normal [facility] URINALYSIS UA Sq Epi Few /LPF Few 08/13 Normal [facility]2012 [facility] URINALYSIS Micro? Performed 08/13 Normal [facility] [facility] [place] (08/13/2013 13:30:00) Center URINALYSIS UA Hyal Cast 0-2 0 - 2 08/13 Normal [facility] [place] (08/13/2013 13:30:00) Center URINALYSIS UA Glucose 250 mg/dL Negative 08/13 [facility] URINALYSIS UA Blood Negative Negative 08/13 Normal [facility] [place] (08/13/2013 13:30:00) Center URINALYSIS UA Ketones >=80 mg/dL Negative 08/13 [facility] URINALYSIS UA 0.2 EU/dL 0.1 - 1.0 08/13 Normal [facility] Urobilinogen /2012 [facility] URINALYSIS UA Nitrite Negative Negative 08/13 Normal [facility] [place] (08/13/2013 13:30:00) [place] URINALYSIS UA Bili Small 1 Negative 08/13 ABN 1Result Comment: Interpret positive bilirubin results with caution. Confirmatory testing not possible due to the unavailability of reagent. Correlation with Medical *ABN* serum chemistry results recommended. [place] (08/13/2013 13:30:00) URINALYSIS UA Leuk Est Negative Negative 08/13 Normal [facility] [place] (08/13/2013 13:30:00) [place] URINALYSIS UA Protein Negative Negative 08/13 Normal [facility] [place] (08/13/2013 13:30:00) [place] URINALYSIS UA pH 6.0 5.0 - 8.0 08/13 Normal [facility] URINALYSIS UA Spec Grav 1.020 <=1.030 08/13 Normal [facility] URINALYSIS UA Color Yellow Yellow 08/13 Medical *NA* [place] (08/13/2013 13:30:00) URINALYSIS UA Turbidity Clear Clear 08/13 Normal [facility] [place] (08/13/2013 13:30:00) [place] CHEMISTRY BE Mark 1 mMol/L -2-2 - 2 08/13 Normal [facility] CHEMISTRY pO2 Mark 29 mm[Hg] 20 - 49 08/13 Normal [facility] CHEMISTRY O2 Sat Mark 55.9 % 40.0 - 08/13 Normal [facility] 70.0 [facility] CHEMISTRY Temp Mark 37.0 Abby 08/13 [facility] CHEMISTRY HCO3 Mark 26 mMol/L 22 - 26 08/13 Normal [facility] CHEMISTRY pCO2 Mark 41 mm[Hg] 38 - 52 08/13 Normal [facility] CHEMISTRY pH Mark 7.41 7.28 - 08/13 Normal [facility] 7.42 [facility] CHEMISTRY eGFR 60 08/13 2Result Comment: The eGFR is calculated using the CKD-EPI formula. In most young, healthy individuals the eGFR will be >90 mL/ min/1.73m2. The eGFR declines with age. An eGFR of 60-89 may be normal in [facility] mL/min/1.7 some populations, particularly the elderly, for whom the CKD-EPI formula has not been extensively validated. Use of the eGFR is not recommended in the following populations: [address] Individuals with unstable creatinine concentrations, including [...] 25 meq/L 24 - 32 08/13 Normal [facility] CHEMISTRY Chloride Lvl 98 meq/L 95 - 109 08/13 Normal [facility] CHEMISTRY BUN 9 mg/dL 7 - 22 08/13 Normal [facility]2012 [facility] CHEMISTRY Calcium Lvl 9.1 mg/dL 8.5 - 10.5 08/13 Normal [facility]2012 [facility] CHEMISTRY Glucose Lvl 301 mg/dL 70 - 99 08/13 HI 3Interpretive Data: Adult reference range values reflect the clinical guidelines of the [place] [employer]. [facility] CHEMISTRY Potassium Lvl 3.8 meq/L 3.5 - 5.1 08/13 Normal [facility] CHEMISTRY Sodium Lvl 134 meq/L 135 - 145 08/13 LOW [facility]2012 [facility] CHEMISTRY Creatinine 1.1 mg/dL 0.5 - 1.4 08/13 Normal [facility] CHEMISTRY Bili Total 0.6 mg/dL 0.2 - 1.3 08/13 Normal [facility] CHEMISTRY ASPARTATE 17 unit/L 0 - 37 08/13 Normal [facility] TRANSAMINASE [facility] CHEMISTRY ALANINE 22 unit/L 0 - 65 08/13 Normal [facility] AMINOTRANSFER [facility] CHEMISTRY Albumin Lvl 3.5 g/dL 3.5 - 5.0 08/13 Normal [facility] CHEMISTRY Alk Phos 130 unit/L 39 - 136 08/13 Normal [facility] CHEMISTRY Total Protein 7.8 g/dL 6.4 - 8.4 08/13 Normal [facility] CHEMISTRY B/C Ratio 8 6 - 25 08/13 Normal [facility] CHEMISTRY AGAP 14.8 meq/L 10.0 - 12 Normal [facility] 20.0 [facility] CHEMISTRY Globulin 4.3 g/dL 2.0 - 4.0 HI [facility] CHEMISTRY A/G Ratio 0.8 0.7 - 1.6 12 Normal [facility] HEMATOLOGY Monocytes # 0.8 K/CMM 0.0 - 0.8 12 Normal [facility] HEMATOLOGY Eosinophils # 0.0 K/CMM 0.0 - 0.5 08/13 Normal [facility] HEMATOLOGY Basophils # 0.0 K/CMM 0.0 - 0.2 08/13 Normal [facility] HEMATOLOGY Basophils 0.1 % 0.0 - 1.0 08/13 Normal [facility] HEMATOLOGY Lymphocytes # 1.4 K/CMM 1.0 - 5.5 08/13 [facility] HEMATOLOGY Segs-Bands # 10.5 K/CMM 1.5 - 8.1 08/13 [facility] HEMATOLOGY Monocytes 6.3 % 2.0 - 12.0 08/13 Normal [facility] HEMATOLOGY Eosinophils 0.2 % 0.0 - 4.0 08/13 Normal [facility] HEMATOLOGY Lymphocytes 11.3 % 20.0 - 1208 LOW [facility] 40.0 [facility] HEMATOLOGY Segs 82.1 % 45.0 - 12/08 [facility] 75.0 [facility] HEMATOLOGY WBC X 10x3 12.7 K/CMM 3.7 - 10.4 08/13 [facility] HEMATOLOGY Hct 37.0 % 36.0 - 12/08 Normal [facility] 48.0 [facility] HEMATOLOGY RBC X 10x6 4.36 M/CMM 4.20 - 12/08 Normal [facility] 5.40 /2012 [facility] HEMATOLOGY Hgb 12.6 g/dL 12.0 - 12/08 Normal [facility] 16.0 /2012 [facility] HEMATOLOGY MCV 84.8 fL 81.0 - 1208 [facility] 99.0 /2012 [facility] HEMATOLOGY MCH 28.8 pg 27.0 - 12 [facility] 31.0 /2012 [facility] HEMATOLOGY MCHC 34.0 g/dL 32.0 - 12/08 Normal [facility] 36.0 [facility] HEMATOLOGY Platelet 238 K/CMM 133 - 450 12 [facility] HEMATOLOGY MPV 9.5 fL 7.4 - 10.4 08/13 Normal [facility] HEMATOLOGY RDW 13.1 % 11.5 - 08/13 Normal [facility] 14. [facility] BEDSIDE Gluc POC Notify 07/26 [facility] GLUCOSE Comment 1 RN/ /2012 [facility] BEDSIDE Glucose POC 274 mg/dL 70 - 99 07/26 HI 1Interpretive [facility] GLUCOSE Data: Medical TESTING Center Upper Reportable Limit: 200 mg/dL. BEDSIDE Glucose POC 146 mg/dL 70 - 99 07/15 HI 2Interpretive [facility] GLUCOSE Data: Medical TESTING Center Upper Reportable Limit: 200 mg/dL. BEDSIDE Gluc POC Notify 07/15 [facility] GLUCOSE Comment 1 RN/ /2012 [facility] BEDSIDE Glucose POC 140 mg/dL 70 - 99 07/14 HI 3Interpretive [facility] GLUCOSE Data: Medical TESTING Center Upper Reportable Limit: 200 mg/dL. BEDSIDE Gluc POC Notify 07/14 [facility] GLUCOSE Comment 1 RN/ [facility] [place] TESTING Center BEDSIDE Gluc POC Notify 07/14 [facility] GLUCOSE Comment 1 RN/ /2012 [facility] BEDSIDE Glucose POC 44 mg/dL 70 - 99 07/14 LOW 4Interpretive [facility] GLUCOSE Data: [facility] TESTING Center Upper Reportable Limit: 200 mg/dL. IMMUNOLOGY [place]-HIV Negative Negative 07/14 [facility] 09/07 [facility] [place] *NA* Center (07/14/2013 00:27:00) IMMUNOLOGY [place]-Hep C Negative Negative 07/14 [facility] (07/14/2013 00:27:00) CHEMISTRY eGFR 109 07/13 5Result Comment: The eGFR is calculated using the CKD-EPI formula. In most young, healthy individuals the eGFR will be >90 mL/ min/1.73m2. The eGFR declines with age. An eGFR of 60-89 may be normal in [facility] mL/min/1. some populations, particularly the elderly, [...] 135 meq/L 135 - 145 07/13 Normal [facility] CHEMISTRY Chloride Lvl 95 meq/L 95 - 109 07/13 Normal [facility] CHEMISTRY AGAP 16.5 meq/L 10.0 - 07/13 Normal [facility] 20.0 [facility] CHEMISTRY Glucose Lvl 322 mg/dL 70 - 99 07/13 HI 8Interpretive Data: Adult reference range values reflect the clinical guidelines of the [place] [employer]. [facility] CHEMISTRY Creatinine 0.6 mg/dL 0.5 - 1.4 07/13 Normal [facility] CHEMISTRY BUN 6 mg/dL 7 - 22 07/13 LOW 2012 [facility] CHEMISTRY Calcium Lvl 8.6 mg/dL 8.5 - 10.5 07/13 Normal [facility] CHEMISTRY CO2 27 meq/L 24 - 32 07/13 Normal [facility] CHEMISTRY Potassium Lvl 3.5 meq/L 3.5 - 5.1 07/13 Normal [facility]2012 [facility] INFECTIOUS C difficile Negative 1 Negative 07/13 Normal 1Interpretive Data: [employer] Clostridium difficile assay utilizes loop-mediated isothermal DNA amplification (LAMP) technology to detect a 204 bp region of the tcdA gene within the PaLoc gene [facility] segment present in all known toxigenic C. difficile strains. [facility] [place] (07/13/2013 00:00:59) [place] The assay utilizes FDA cleared IVD reagents. Performance characteristics have been verified by the [facility] within the [facility]. The [facility] Laboratory is authorized under the Clinical Laboratory Improvement Amendment of 1988 (CLIA-88) to perform high complexity testing. CHEMISTRY Lactic Acid 1.9 mMol/L 0.5 - 2.2 07/12 Normal [facility] CHEMISTRY eGFR 88 07/12 6Result Comment: The eGFR is calculated using the CKD-EPI formula. In most young, healthy individuals the eGFR will be >90 mL/ min/1.73m2. The eGFR declines with age. An eGFR of 60-89 may be normal in [facility] mL/min/1. some populations, particularly the elderly, for whom the CKD-EPI formula has not been extensively validated. Use of the eGFR is not recommended in the following populations: Medical [facility] Individuals with unstable creatinine concentrations, including [...] estimated BMI. CHEMISTRY Troponin-I null 0.00 - 11 Normal [facility] 0.40 [facility] HEMATOLOGY Basophils # 0.0 K/CMM 0.0 - 0.2 07/12 Normal [facility] HEMATOLOGY Eosinophils # 0.3 K/CMM 0.0 - 0.5 07/12 Normal [facility] HEMATOLOGY Monocytes # 1.0 K/CMM 0.0 - 0.8 07/12 HI [facility] HEMATOLOGY Lymphocytes # 3.0 K/CMM 1.0 - 5.5 07/12 Normal [facility] HEMATOLOGY Segs-Bands # 6.4 K/CMM 1.5 - 8.1 07/12 Normal [facility] HEMATOLOGY Basophils 0.4 % 0.0 - 1.0 07/12 Normal [facility] HEMATOLOGY Eosinophils 2.8 % 0.0 - 4.0 07/12 Normal [facility] HEMATOLOGY Plt Morph Normal 07/12 [facility] [place] (07/12/2013 16:29:10) [place] HEMATOLOGY RBC Morph Normal 07/12 [facility] [place] (07/12/2013 16:29:10) Center HEMATOLOGY Monocytes 9.4 % 2.0 - 12.0 07/12 Normal [facility] HEMATOLOGY Lymphocytes 27.9 % 20.0 - 07/12 Normal [place] 40.0 [facility] HEMATOLOGY Segs 59.5 % 45.0 - 07/12 Normal [facility] 75.0 [facility] HEMATOLOGY MCV 85.3 fL 81.0 - 07/12 [facility] 99.0 [facility] HEMATOLOGY Hct 41.2 % 36.0 - 07/12 Normal [place] 48.0 [facility] HEMATOLOGY Hgb 13.6 g/dL 12.0 - 07/12 Normal [facility] 16.0 [facility] HEMATOLOGY RBC X 10x6 4.84 M/CMM 4.20 - 11 Normal [facility] 5.40 /2012 Medical [place] HEMATOLOGY MPV 9.4 fL 7.4 - 10.4 07/12 Normal [facility] HEMATOLOGY Platelet 225 K/CMM 133 - 450 07/12 Normal [facility] HEMATOLOGY MCH 28.1 pg 27.0 - 07/12 Normal [facility] 31.0 Medical [place] HEMATOLOGY MCHC 33.0 g/dL 32.0 - 07/12 Normal [facility] 36.0 /2012 [facility] HEMATOLOGY RDW 12.7 % 11.5 - 07/12 Normal [facility] 14.5 [facility] HEMATOLOGY WBC X 10x3 10.7 K/CMM 3.7 - 10.4 07/12 HI [facility] CHEMISTRY AGAP 12.4 meq/L 10.0 - 07/12 Normal [facility] . [facility] CHEMISTRY Calcium Lvl 8.8 mg/dL 8.5 - 10.5 07/12 Normal [facility] CHEMISTRY Chloride Lvl 102 meq/L 95 - 109 07/12 Normal [facility] CHEMISTRY Potassium Lvl 3.4 meq/L 3.5 - 5.1 07/12 LOW [facility] CHEMISTRY CO2 30 meq/L 24 - 32 07/12 Normal [facility] CHEMISTRY Sodium Lvl 141 meq/L 135 - 145 07/12 Normal [facility] CHEMISTRY Creatinine 0.8 mg/dL 0.5 - 1.4 07/12 Normal [facility] CHEMISTRY BUN 6 mg/dL 7 - 22 07/12 LOW [facility] CHEMISTRY Glucose Lvl 163 mg/dL 70 - 99 07/12 [place] 9Interpretive Data: Adult reference range values reflect the clinical guidelines of the [place] [employer]. Medical Center IMMUNOLOGY CDC-HIV 1/2 Negative Negative 07/12 Medical *NA* Center (07/12/2013 16:02:06) CHEMISTRY Calcium Lvl 8.4 mg/dL 8.5 - 10.5 07/12 LOW [facility] CHEMISTRY AGAP 10.4 meq/L 10.0 - 07/12 Normal [facility] CHEMISTRY eGFR 76 07/12 7Result Comment: The eGFR is calculated using the CKD-EPI formula. In most young, healthy individuals the eGFR will be >90 mL/ min/1.73m2. The eGFR declines with age. An eGFR of 60-89 may be normal in [facility] mL/min/1.7 some populations, particularly the elderly, for whom the CKD-EPI formula has not been extensively validated. Use of the eGFR is not recommended in the following populations: [address] Individuals with unstable creatinine concentrations, including [...] 140 meq/L 135 - 145 07/12 Normal [facility] CHEMISTRY Chloride Lvl 103 meq/L 95 - 109 07/12 Normal [facility] CHEMISTRY Potassium Lvl 3.4 meq/L 3.5 - 5.1 07/12 LOW [facility]2012 [facility] CHEMISTRY BUN 9 mg/dL 7 - 22 07/12 Normal [facility]2012 [facility] CHEMISTRY Creatinine 0.9 mg/dL 0.5 - 1.4 07/12 Normal [facility] CHEMISTRY Glucose Lvl 296 mg/dL 70 - 99 07/12 HI 10Interpretive Data: Adult reference range values reflect the clinical guidelines of the [place] [employer]. [facility] CHEMISTRY CO2 30 meq/L 24 - 32 07/12 Normal [facility] CHEMISTRY Troponin-I null 0.00 - 11 Normal [facility] 0.40 [facility] CHEMISTRY Lipase Lvl 76 unit/L 73 - 393 07/12 Normal [facility] CHEMISTRY B/C Ratio 11 6 - 25 07/12 Normal [facility] CHEMISTRY ASPARTATE 25 unit/L 0 - 37 07/12 Normal [facility] CHEMISTRY Bili Total 0.4 mg/dL 0.2 - 1.3 07/12 Normal [facility] CHEMISTRY Alk Phos 119 unit/L 39 - 136 07/12 Normal [facility] CHEMISTRY Albumin Lvl 3.9 g/dL 3.5 - 5.0 11/06 Normal [facility] CHEMISTRY ALANINE 29 unit/L 0 - 65 07/12 Normal [facility] AMINO [facility] CHEMISTRY Total Protein 8.1 g/dL 6.4 - 8.4 07/12 Normal [facility] CHEMISTRY Globulin 4.2 g/dL 2.0 - 4.0 07/12 HI [facility] CHEMISTRY A/G Ratio 0.9 0.7 - 1.6 07/12 Normal 2012 [facility] HEMATOLOGY Monocytes # 0.6 K/CMM 0.0 - 0.8 07/12 Normal [facility] HEMATOLOGY Segs-Bands # 9.5 K/CMM 1.5 - 8.1 07/12 HI 2012 [facility] HEMATOLOGY Eosinophils # 0.2 K/CMM 0.0 - 0.5 07/12 Normal [facility] HEMATOLOGY Lymphocytes # 2.1 K/CMM 1.0 - 5.5 07/12 Normal [facility] HEMATOLOGY Basophils 0.2 % 0.0 - 1.0 07/12 Normal [facility] HEMATOLOGY Neut Vac Slight None Seen 07/12 ABN [facility] [place] *ABN* [place] (07/12/2013 03:30:00) HEMATOLOGY Hypochrom Slight None Seen 07/12 Normal [facility] [place] (07/12/2013 03:30:00) [place] HEMATOLOGY Basophils # 0.0 K/CMM 0.0 - 0.2 07/12 Normal [facility] HEMATOLOGY RBC Morph Normal 07/12 Normal [facility] [place] (07/12/2013 03:30:00) [place] HEMATOLOGY Eosinophils 1.6 % 0.0 - 4.0 07/12 Normal [facility] HEMATOLOGY Monocytes 4.6 % 2.0 - 12.0 07/12 Normal [facility] HEMATOLOGY Segs 76.6 % 45.0 - 07/12 HI [facility] 75.0 [facility] HEMATOLOGY Lymphocytes 17.0 % 20.0 - 07/12 LOW [facility] 40.0 [facility] HEMATOLOGY Plt Morph Normal 07/12 Normal [facility] [place] (07/12/2013 03:30:00) Center HEMATOLOGY MCHC 32.4 g/dL 32.0 - 07/12 Normal [place] 36.0 [facility] HEMATOLOGY MCH 27.4 pg 27.0 - 07/12 Normal [facility] 31.0 /2012 [facility] HEMATOLOGY RDW 12.7 % 11.5 - 07/12 Normal [facility] 14.5 /2012 [facility] HEMATOLOGY Platelet 235 K/CMM 133 - 450 07/12 Normal [facility] HEMATOLOGY MPV 9.4 fL 7.4 - 10.4 07/12 Normal [facility] HEMATOLOGY Hgb 12.9 g/dL 12.0 - 07/12 Normal [facility] 16.0 /2012 [facility] HEMATOLOGY MCV 84.3 fL 81.0 - 07/12 Normal [facility] 99.0 /2012 [facility] HEMATOLOGY Hct 39.6 % 36.0 - 07/12 Normal [facility] 48.0 /2012 [facility] HEMATOLOGY WBC X 10x3 12.4 K/CMM 3.7 - 10.4 07/12 HI [facility] HEMATOLOGY RBC X 10x6 4.70 M/CMM 4.20 - 07/12 Normal [facility] 5.40 [facility] CHEMISTRY U Preg Negative Negative 07/12 Normal [facility] [place] (07/12/2013 03:00:00) Center URINALYSIS UA Leuk Est Negative Negative 07/12 Normal [facility] [place] (07/12/2013 03:00:00) Center URINALYSIS UA 0.2 EU/dL 0.1 - 1.0 07/12 Normal [facility] Urobilinogen [facility] URINALYSIS UA Nitrite Negative Negative 07/12 Normal [facility] [place] (07/12/2013 03:00:00) Center URINALYSIS UA Bili Negative Negative 07/12 [facility] [place] *NA* Center (07/12/2013 03:00:00) URINALYSIS UA pH 6.0 5.0 - 8.0 07/12 Normal [facility] URINALYSIS UA Protein Negative Negative 07/12 Normal [facility] mg/dL [facility] URINALYSIS UA Glucose >=1000 Negative 07/12 ABN [facility] mg/dL [facility] URINALYSIS UA Ketones 15 mg/dL Negative 07/12 ABN [facility] URINALYSIS UA Spec Grav 1.020 <=1.030 07/12 Normal [facility] URINALYSIS UA Blood Negative Negative 07/12 Normal [facility] [place] (07/12/2013 03:00:00) [place] URINALYSIS UA Color Yellow Yellow 07/12 [facility] [place] *NA* [place] (07/12/2013 03:00:00) URINALYSIS UA Turbidity Clear Clear 07/12 Normal [facility] [place] (07/12/2013 03:00:00) [place] URINALYSIS UA RBC 0-2 /HPF 0 - 2 07/12 Normal [facility] URINALYSIS UA WBC 3-5 /HPF None Seen 07/12 Normal 2012 [facility] URINALYSIS UA Sq Epi Many /LPF Few 07/12 ABN [facility] URINALYSIS UA Bacteria Few /HPF None Seen 07/12 Normal [facility] URINALYSIS UA [place] Yeast Moderate None Seen 07/12 [facility] URINALYSIS Micro? Performed 07/12 Normal [facility] [place] (07/12/2013 03:00:00) [place] Abdomen/Pel Abdomen/Pelvi EXAM: CT ABDOMEN WITH CONTRAST 07/12 - [facility] vis w s w contrast - Medical contrast CT CT EXAM: CT PELVIS WITH CONTRAST This report was dictated by a Manager Hair/Fellow. I have personally reviewed the images as [...] mg/dL 70 - 99 04/03 [place] 1Interpretive [facility] GLUCOSE [place] /2012 Data: Medical TESTING Center Upper Reportable Limit: 200 mg/dL. BEDSIDE Comment2 Sliding 04/03 [facility] [place] GLUCOSE Scale /2012 Medical TESTING Center BEDSIDE Comment1 Notify 04/03 [facility] GLUCOSE RN/MD /2012 [facility] TESTING Center BEDSIDE Comment1 Notify 04/03 [facility] GLUCOSE RN/MD /2013 [facility] TESTING Center BEDSIDE Gluc POC 198 mg/dL 70 - 99 04/03 HI 2Interpretive [facility] GLUCOSE [place] Data: [facility] [place] Upper Reportable Limit: 200 mg/dL. BEDSIDE Comment2 Sliding 04/03 NA [facility] GLUCOSE Scale [facility] [place] TESTING Center Abdomen 2 Abdomen 2 EXAM: XR ABDOMEN 1 VIEW 04/03 - [facility] views - Medical Center DATE: March 25 90,013. Read by: Carissa Cho Dictated Date/time: 04/03/13 [...] Carissa Cho MD. BEDSIDE Comment2 Sliding 04/03 NA [facility] GLUCOSE Scale /2012 [facility] [place] TESTING Center BEDSIDE Comment1 Notify 04/03 NA [facility] GLUCOSE RN/ /2012 Medical TESTING Center BEDSIDE Gluc POC 182 mg/dL 70 - 99 04/03 HI 3Interpretive [facility] GLUCOSE [facility] Data: [facility] Upper Reportable Limit: 200 mg/dL. CHEMISTRY Troponin-T null 0.000 - 04/03 Normal [facility] 0.100 [facility] CHEMISTRY Troponin-I null 0.00 - 04/03 Normal [facility] 0.40 [facility] CHEMISTRY Total CK 41 unit/L 12 - 191 04/03 Normal [facility] CHEMISTRY Creatinine 0.6 mg/dL 0.5 - 1.4 04/03 Normal [facility] Lvl [facility] CHEMISTRY Sodium Lvl 137 meq/L 135 - 145 04/03 Normal [facility] CHEMISTRY CO2 25 meq/L 24 - 32 04/03 Normal [facility] CHEMISTRY Calcium Lvl 8.2 mg/dL 8.5 - 10.5 04/03 LOW [facility] CHEMISTRY AGAP 17.9 meq/L 10.0 - 04/03 Normal [facility] 20.0 [facility] [place] Center CHEMISTRY Potassium Lvl 3.9 meq/L 3.5 - 5.1 04/03 Normal [facility] CHEMISTRY Chloride Lvl 98 meq/L 95 - 109 04/03 Normal [facility] CHEMISTRY Glucose Lvl 266 mg/dL 70 - 99 04/03 [place] 6Interpretive Data: Adult reference range values reflect the clinical guidelines of the [place] [employer]. [facility] CHEMISTRY BUN 3 mg/dL 7 - 22 04/03 LOW [facility] CHEMISTRY eGFR 109 04/03 NA 4Result Comment: The eGFR is calculated using the CKD-EPI formula. In most young, healthy individuals the eGFR will be > 90 mL/min/1.73m2. The eGFR declines with age. An eGFR of 60-89 may be normal in [facility] mL/min/1.7 some populations, particularly the elderly, for whom the CKD-EPI formula has not been extensively validated. Use of the eGFR is not recommended in the following populations: [place] [id number] Center Individuals with unstable creatinine concentrations, including [...] HEMATOLOGY Hgb 10.5 g/dL 12.0 - 04/03 [facility] 16.0 [facility] HEMATOLOGY RBC 4.22 M/CMM 4.20 - 04/03 Normal [facility] 5.40 /2012 [facility] HEMATOLOGY WBC 10.3 K/CMM 3.7 - 10.4 04/03 Normal [facility] HEMATOLOGY Hct 33.5 % 36.0 - 04/03 [facility] 48.0 [facility] HEMATOLOGY MPV 8.8 fL 7.4 - 10.4 04/03 Normal [facility] HEMATOLOGY Platelet 276 K/CMM 133 - 450 04/03 Normal [facility] HEMATOLOGY RDW 18.7 % 11.5 - 04/03 HI [facility] 14.5 [facility] HEMATOLOGY MCHC 31.2 g/dL 32.0 - 04/03 [facility] 36.0 [facility] HEMATOLOGY MCH 24.8 pg 27.0 - 04/03 [facility] 31.0 [facility] HEMATOLOGY MCV 79.5 fL 81.0 - 04/03 LOW [place] 99.0 [facility] HEMATOLOGY Segs 58.6 % 45.0 - 04/03 Normal [place] 75.0 [facility] HEMATOLOGY Lymphocytes 29.9 % 20.0 - 04/03 Normal [place] 40.0 [facility] HEMATOLOGY Basophils 1.3 % 0.0 - 1.0 04/03 HI [facility] HEMATOLOGY Lymphocytes # 3.1 K/CMM 1.0 - 5.5 04/03 Normal [facility] HEMATOLOGY Segs-Bands # 6.0 K/CMM 1.5 - 8.1 04/03 Normal [facility] HEMATOLOGY Eosinophils 2.8 % 0.0 - 4.0 04/03 Normal [facility] HEMATOLOGY Eosinophils # 0.3 K/CMM 0.0 - 0.5 04/03 Normal [facility] HEMATOLOGY Monocytes # 0.8 K/CMM 0.0 - 0.8 04/03 Normal [facility] HEMATOLOGY Basophils # 0.1 K/CMM 0.0 - 0.2 04/03 Normal [facility] HEMATOLOGY Monocytes 7.4 % 2.0 - 12.0 04/03 Normal [facility] CHEMISTRY Troponin-I null 0.00 - 04/03 Normal [facility] 0.40 [facility] CHEMISTRY Total CK 51 unit/L 12 - 191 04/03 Normal [facility] CHEMISTRY Troponin-T null 0.000 - 04/03 Normal 0.100 [facility] CHEMISTRY Bili Direct 0.1 mg/dL 0.0 - 0.3 04/03 Normal [facility] CHEMISTRY Bili Total 0.4 mg/dL 0.2 - 1.3 04/03 Normal [facility] CHEMISTRY Bili Indirect 0.3 mg/dL 0.0 - 1.0 04/03 Normal [facility] CHEMISTRY ALT 22 unit/L 0 - 65 04/03 Normal [facility] CHEMISTRY AST 31 unit/L 0 - 37 04/03 Normal [facility] CHEMISTRY Lipase Lvl 54 unit/L 73 - 393 04/03 LOW [facility] CHEMISTRY Troponin-I null 0.00 - 04/02 Normal [place] 0.40 [facility] CHEMISTRY Total CK 24 unit/L 12 - 191 04/02 Normal [facility] CHEMISTRY AGAP 17.5 meq/L 10.0 - 04/02 Normal [facility] 20.0 [facility] CHEMISTRY eGFR 88 04/02 NA 5Result Comment: The eGFR is calculated using the CKD-EPI formula. In most young, healthy individuals the eGFR will be > 90 mL/min/1.73m2. The eGFR declines with age. An eGFR of 60-89 may be normal in [facility] mL/min/1.7 some populations, particularly the elderly, for whom the CKD-EPI formula has not been extensively validated. Use of the eGFR is not recommended in the following populations: [place] [address] [facility] Individuals with unstable creatinine concentrations, including [...] 0.8 mg/dL 0.5 - 1.4 04/02 Normal [facility] Lvl [facility] CHEMISTRY Potassium Lvl 3.5 meq/L 3.5 - 5.1 04/02 Normal [facility] CHEMISTRY Chloride Lvl 97 meq/L 95 - 109 04/02 Normal [facility] CHEMISTRY Glucose Lvl 163 mg/dL 70 - 99 04/02 HI 7Interpretive Data: Adult reference range values reflect the clinical guidelines of the [place] [employer]. [facility] CHEMISTRY BUN 2 mg/dL 7 - 22 04/02 LOW [facility] CHEMISTRY Sodium Lvl 136 meq/L 135 - 145 04/02 Normal [facility] CHEMISTRY Calcium Lvl 8.6 mg/dL 8.5 - 10.5 04/02 Normal [facility] CHEMISTRY CO2 25 meq/L 24 - 32 04/02 Normal [facility] HEMATOLOGY Platelet 378 K/CMM 133 - 450 04/02 Normal [facility] HEMATOLOGY MCHC 33.4 g/dL 32.0 - 04/02 Normal [facility] 36.0 [facility] HEMATOLOGY RDW 17.3 % 11.5 - 04/02 HI [facility] 14. [facility] HEMATOLOGY MCV 76.0 fL 81.0 - 04/02 [facility] [place] 99.0 /2012 [facility] HEMATOLOGY MCH 25.4 pg 27.0 - 04/02 [facility] 31.0 /2012 [facility] HEMATOLOGY Hct 34.2 % 36.0 - 04/02 [facility] 48.0 /2012 [facility] HEMATOLOGY RBC 4.50 M/CMM 4.20 - 04/02 Normal [facility] 5.40 /2012 [facility] HEMATOLOGY Hgb 11.4 g/dL 12.0 - 04/02 [facility] 16.0 [facility] HEMATOLOGY WBC 9.0 K/CMM 3.7 - 10.4 04/02 Normal [facility] HEMATOLOGY MPV 8.4 fL 7.4 - 10.4 04/02 Normal [facility] HEMATOLOGY Microcyte 2+ None Seen 04/02 ABN [facility] *ABN* Center (04/02/2013 17:09:00) HEMATOLOGY Basophils # 0.1 K/CMM 0.0 - 0.2 04/02 Normal [facility] HEMATOLOGY Eosinophils # 0.1 K/CMM 0.0 - 0.5 04/02 Normal [facility] HEMATOLOGY Monocytes # 0.7 K/CMM 0.0 - 0.8 04/02 Normal [facility] HEMATOLOGY Lymphocytes # 1.4 K/CMM 1.0 - 5.5 04/02 Normal [facility] HEMATOLOGY Segs-Bands # 6.7 K/CMM 1.5 - 8.1 04/02 Normal [facility] HEMATOLOGY Basophils 1.3 % 0.0 - 1.0 04/02 HI [facility] HEMATOLOGY Lymphocytes 15.2 % 20.0 - 04/02 [facility] 40.0 [facility] HEMATOLOGY Segs 74.3 % 45.0 - 04/02 [facility] 75.0 [facility] HEMATOLOGY Eosinophils 1.6 % 0.0 - 4.0 04/02 Normal [facility] HEMATOLOGY Monocytes 7.6 % 2.0 - 12.0 04/02 [facility] Chest 1view Chest 1view EXAM: XR CHEST 1 VIEW 04/02 - - [facility] Center DATE: 2013-04-02 1638 hours Read by: Francheska [...] POC 229 mg/dL 70 - 99 03/09 HI 1Interpretive [facility] GLUCOSE Lifsc[facility] Data: [facility] Center Upper Reportable Limit: 200 mg/dL. BEDSIDE Comment1 Notify 03/09 NA [facility] GLUCOSE RN/ Medical [facility] Center CHEMISTRY eGFR 88 03/09 NA 4Result Comment: The eGFR is calculated using the CKD-EPI formula. In most young, healthy individuals the eGFR will be > 90 mL/min/1.73m2. The eGFR declines with age. An eGFR of 60-89 may be normal in [facility] mL/min/1.7 some populations, particularly the elderly, for whom the CKD-EPI formula has not been extensively validated. Use of the eGFR is not recommended in the following populations: [place] [address] [facility] Individuals with unstable creatinine concentrations, including [...] 7 mg/dL 7 - 22 03/09 Normal [facility] CHEMISTRY Creatinine 0.8 mg/dL 0.5 - 1.4 03/09 Normal [facility] Lvl [facility] CHEMISTRY Sodium Lvl 138 meq/L 135 - 145 03/09 Normal [facility] CHEMISTRY Potassium Lvl 4.7 meq/L 3.5 - 5.1 03/09 Normal [facility] CHEMISTRY Chloride Lvl 104 meq/L 95 - 109 03/09 Normal [facility] CHEMISTRY CO2 23 meq/L 24 - 32 03/09 LOW [facility] CHEMISTRY Bili Total 0.2 mg/dL 0.2 - 1.3 07/ Normal [facility] CHEMISTRY AST 22 unit/L 0 - 37 / Normal [facility] CHEMISTRY Total Protein 4.8 g/dL 6.4 - 8.4 07/ LOW [facility] CHEMISTRY Calcium Lvl 7.4 mg/dL 8.5 - 10.5 03/09 LOW [facility]2012 [facility] CHEMISTRY Albumin Lvl 1.9 g/dL 3.5 - 5.0 / LOW [facility] CHEMISTRY Glucose Lvl 192 mg/dL 70 - 99 07/ HI 7Interpretive Data: Adult reference range values reflect the clinical guidelines of the [place] [employer]. [facility] CHEMISTRY Alk Phos 162 unit/L 39 - 136 03/09 HI [facility] CHEMISTRY ALT 18 unit/L 0 - 65 03/09 Normal [facility] CHEMISTRY A/G Ratio 0.7 0.7 - 1.6 03/09 Normal [facility] CHEMISTRY Globulin 2.9 g/dL 2.0 - 4.0 03/09 Normal [facility] CHEMISTRY AGAP 15.7 meq/L 10.0 - 07 Normal [facility] 20.0 [facility] CHEMISTRY B/C Ratio 9 6 - 25 03/09 Normal [facility]2012 [facility] HEMATOLOGY Eosinophils 1.9 % 0.0 - 4.0 / Normal [facility] HEMATOLOGY Basophils 1.0 % 0.0 - 1.0 03/09 Normal [facility] HEMATOLOGY Anisocyte 1+ None Seen 03/09 ABN Medical *ABN* Center (03/09/2013 01:09:00) HEMATOLOGY Lymphocytes # 2.0 K/CMM 1.0 - 5.5 07/ Normal [facility] HEMATOLOGY Monocytes # 0.6 K/CMM 0.0 - 0.8 07/ Normal [facility]2012 [facility] HEMATOLOGY Eosinophils # 0.1 K/CMM 0.0 - 0.5 07/ Normal [facility]2012 [facility] HEMATOLOGY Basophils # 0.1 K/CMM 0.0 - 0.2 07/ Normal [facility] HEMATOLOGY Segs-Bands # 4.6 K/CMM 1.5 - 8.1 07/ Normal /2012 [facility] HEMATOLOGY Segs 62.8 % 45.0 - 07/ Normal [place] 75.0 /2012 [facility] HEMATOLOGY Lymphocytes 26.4 % 20.0 - 07/ Normal [place] 40.0 /2012 [facility] HEMATOLOGY Monocytes 7.9 % 2.0 - 12.0 07/ Normal [facility] HEMATOLOGY RDW 20.7 % 11.5 - 07/04 HI [place] 14.5 /2012 [facility] HEMATOLOGY Platelet 304 K/CMM 133 - 450 07/ Normal /2012 [facility] HEMATOLOGY MPV 8.0 fL 7.4 - 10.4 07/ Normal [facility] HEMATOLOGY Hct 24.9 % 36.0 - 07/ LOW [place] 48.0 /2012 [facility] HEMATOLOGY MCV 79.3 fL 81.0 - 07/ [facility] [place] 99.0 /2012 [facility] HEMATOLOGY MCH 24.7 pg 27.0 - 07 LOW [facility] 31.0 /2012 [facility] HEMATOLOGY MCHC 31.2 g/dL 32.0 - 07 LOW [place] 36.0 /2012 [facility] HEMATOLOGY RBC 3.14 M/CMM 4.20 - 07/ LOW [place] 5.40 /2012 [facility] HEMATOLOGY Hgb 7.8 g/dL 12.0 - 07/ LOW [facility] 16.0 /2012 [facility] HEMATOLOGY WBC 7.4 K/CMM 3.7 - 10.4 07 Normal [facility] BEDSIDE Gluc POC 131 mg/dL 70 - 99 03/09 HI 2Interpretive [facility] GLUCOSE md Data: [facility] Upper Reportable Limit: 200 mg/dL. BEDSIDE Comment1 Notify 03/09 NA [facility] GLUCOSE RN/MD /2012 [facility] BEDSIDE Comment1 Notify 03/09 NA [facility] GLUCOSE RN/MD /2012 [facility] BEDSIDE Gluc POC 155 mg/dL 70 - 99 03/09 HI 3Interpretive [facility] GLUCOSE Lif[facility] Data: [facility] Upper Reportable Limit: 200 mg/dL. CHEMISTRY Magnesium Lvl 1.5 mg/dL 1.8 - 2.4 03/08 LOW [facility] Center CHEMISTRY A/G Ratio 0.7 0.7 - 1.6 03/08 Normal [facility] CHEMISTRY B/C Ratio 8 6 - 25 03/08 Normal [facility] CHEMISTRY Globulin 2.8 g/dL 2.0 - 4.0 03/08 Normal [facility] CHEMISTRY AGAP 15.8 meq/L 10.0 - 03/08 Normal [facility] 20.0 /2012 [facility] CHEMISTRY Potassium Lvl 3.8 meq/L 3.5 - 5.1 03/08 Normal [facility] CHEMISTRY Chloride Lvl 100 meq/L 95 - 109 03/08 Normal [facility] CHEMISTRY CO2 23 meq/L 24 - 32 03/08 LOW [facility] CHEMISTRY Total Protein 4.8 g/dL 6.4 - 8.4 03/08 LOW [facility] CHEMISTRY AST 10 unit/L 0 - 37 03/08 Normal [facility] CHEMISTRY Calcium Lvl 7.6 mg/dL 8.5 - 10.5 03/08 LOW [facility]2012 [facility] CHEMISTRY Bili Total 0.3 mg/dL 0.2 - 1.3 03/08 Normal [facility] CHEMISTRY eGFR 88 03/08 NA 5Result Comment: The eGFR is calculated using the CKD-EPI formula. In most young, healthy individuals the eGFR will be > 90 mL/min/1.73m2. The eGFR declines with age. An eGFR of 60-89 may be normal in [facility] mL/min/1. some populations, particularly the elderly, for whom the CKD-EPI formula has not been extensively validated. Use of the eGFR is not recommended in the following populations: [address] Individuals with unstable creatinine concentrations, including [...] Lvl 198 mg/dL 70 - 99 03/08 HI 8Interpretive Data: Adult reference range values reflect the clinical guidelines of the [place] [employer]. [facility] CHEMISTRY BUN 6 mg/dL 7 - 22 03/08 LOW [facility] CHEMISTRY Creatinine 0.8 mg/dL 0.5 - 1.4 03/08 Normal [facility] /2012 [facility] CHEMISTRY Sodium Lvl 135 meq/L 135 - 145 07 Normal [facility] CHEMISTRY Alk Phos 173 unit/L 39 - 136 07 HI [facility] CHEMISTRY ALT 16 unit/L 0 - 65 03/08 Normal [facility] CHEMISTRY Albumin Lvl 2.0 g/dL 3.5 - 5.0 03/08 LOW [facility] CHEMISTRY Lipase Lvl 54 unit/L 73 - 393 03/08 LOW [facility] CHEMISTRY Amylase Lvl 30 unit/L 25 - 115 / Normal [facility] HEMATOLOGY Basophils # 0.1 K/CMM 0.0 - 0.2 03/08 Normal [facility] HEMATOLOGY Anisocyte 1+ None Seen 03/08 ABN [facility] *[facility]ANNER* Center (03/08/2013 03:01:00) HEMATOLOGY Microcyte 1+ None Seen 03/08 [facility] *[facility]* Center (03/08/2013 03:01:00) HEMATOLOGY Eosinophils # 0.2 K/CMM 0.0 - 0.5 / Normal [facility] HEMATOLOGY Monocytes # 0.8 K/CMM 0.0 - 0.8 03/08 Normal [facility] HEMATOLOGY Lymphocytes 34.2 % 20.0 - 07 Normal [facility] 40.0 [facility] HEMATOLOGY Segs 53.3 % 45.0 - 07 [facility] 75.0 [facility] HEMATOLOGY Lymphocytes # 3.0 K/CMM 1.0 - 5.5 07 Normal [facility] HEMATOLOGY Segs-Bands # 4.7 K/CMM 1.5 - 8.1 07 Normal [facility] HEMATOLOGY Basophils 0.9 % 0.0 - 1.0 07/ Normal [facility] HEMATOLOGY Eosinophils 2.6 % 0.0 - 4.0 07/ Normal [facility] HEMATOLOGY Monocytes 9.0 % 2.0 - 12.0 07/ Normal [facility] HEMATOLOGY Hgb 7.9 g/dL 12.0 - 0703 LOW [facility] 16.0 [facility] HEMATOLOGY RBC 3.12 M/CMM 4.20 - 07 [facility] 5.40 /2012 [facility] HEMATOLOGY MPV 8.0 fL 7.4 - 10.4 07/ Normal [facility] HEMATOLOGY Platelet 294 K/CMM 133 - 450 07/ Normal [facility] HEMATOLOGY MCH 25.3 pg 27.0 - 07/ [facility] 31.0 /2012 [facility] [place] HEMATOLOGY MCV 79.7 fL 81.0 - 07/ [facility] 99.0 /2012 [facility] [place] HEMATOLOGY Hct 24.9 % 36.0 - 07/ [facility] 48.0 /2012 [facility] [place] HEMATOLOGY WBC 8.8 K/CMM 3.7 - 10.4 07/ Normal [facility] HEMATOLOGY RDW 21.4 % 11.5 - 07/03 [facility] 14.5 /2012 [facility] HEMATOLOGY MCHC 31.8 g/dL 32.0 - 07/ [facility] 36.0 /2012 [facility] CHEMISTRY Troponin-I null 0.00 - 07 Normal [facility] 0.40 [facility] CHEMISTRY Total CK 26 unit/L 12 - 191 07 Normal [facility] CHEMISTRY A/G Ratio 0.6 0.7 - 1.6 07/ LOW [facility] CHEMISTRY Bili Total 0.6 mg/dL 0.2 - 1.3 07 Normal [facility] CHEMISTRY Bili Direct 0.3 mg/dL 0.0 - 0.3 07 Normal [facility] CHEMISTRY Alk Phos 190 unit/L 39 - 136 07/ [facility] CHEMISTRY Total Protein 5.2 g/dL 6.4 - 8.4 07 [facility] CHEMISTRY Globulin 3.2 g/dL 2.0 - 4.0 07/ Normal [facility] CHEMISTRY Bili Indirect 0.3 mg/dL 0.0 - 1.0 07/ Normal [facility] CHEMISTRY AST 11 unit/L 0 - 37 07/ Normal [facility] CHEMISTRY Albumin Lvl 2.0 g/dL 3.5 - 5.0 07/ LOW [facility] CHEMISTRY ALT 19 unit/L 0 - 65 07/ Normal [facility] CHEMISTRY Amylase Lvl 26 unit/L 25 - 115 07/ Normal [facility] CHEMISTRY Lipase Lvl 49 unit/L 73 - 393 07 [facility] HEMATOLOGY MPV 8.3 fL 7.4 - 10.4 07 Normal [facility] HEMATOLOGY MCH 24.7 pg 27.0 - 07 [facility] 31.0 /2012 [facility] HEMATOLOGY MCHC 32.6 g/dL 32.0 - 03/07 [facility] 36.0 /2012 [facility] HEMATOLOGY RDW 20.1 % 11.5 - 07 [facility] 14.5 /2012 [facility] HEMATOLOGY Platelet 362 K/CMM 133 - 450 07 Normal [facility] HEMATOLOGY MCV 75.7 fL 81.0 - 03/07 [facility] 99.0 /2012 [facility] HEMATOLOGY Hgb 8.8 g/dL 12.0 - 03/07 [facility] 16.0 [facility] HEMATOLOGY Hct 26.9 % 36.0 - 03/07 [facility] 48.0 [facility] HEMATOLOGY RBC 3.56 M/CMM 4.20 - 03/07 [facility] 5.40 /2012 [facility] HEMATOLOGY WBC 11.1 K/CMM 3.7 - 10.4 07 [facility] HEMATOLOGY Lymphocytes # 2.4 K/CMM 1.0 - 5.5 03/07 [facility] HEMATOLOGY Hypochrom Slight None Seen 03/07 [facility] (03/07/2013 07:43:59) Center HEMATOLOGY Microcyte 2+ None Seen 03/07 [facility] *ABN* Center (03/07/2013 07:43:59) HEMATOLOGY Anisocyte 1+ None Seen 03/07 [facility] *ABN* [place] (03/07/2013 07:43:59) HEMATOLOGY Basophils # 0.1 K/CMM 0.0 - 0.2 03/07 [facility] HEMATOLOGY Polychrom Slight None Seen 03/07 [facility] (03/07/2013 07:43:59) Center HEMATOLOGY Basophils 0.8 % 0.0 - 1.0 03/07 [facility] HEMATOLOGY Eosinophils 1.3 % 0.0 - 4.0 03/07 [facility] HEMATOLOGY Segs-Bands # 7.6 K/CMM 1.5 - 8.1 / Normal [facility] HEMATOLOGY Monocytes 8.1 % 2.0 - 12.0 03/07 Normal [facility] HEMATOLOGY Monocytes # 0.9 K/CMM 0.0 - 0.8 / HI [facility] HEMATOLOGY Eosinophils # 0.1 K/CMM 0.0 - 0.5 03/07 Normal [facility] HEMATOLOGY Target Cell Slight None Seen 03/07 ABN Medical *ABN* Center (03/07/2013 07:43:59) HEMATOLOGY Plt Morph Normal 03/07 Normal [facility] (03/07/2013 07:43:59) Center HEMATOLOGY Lymphocytes 22.0 % 20.0 - 07 [facility] 40.0 [facility] HEMATOLOGY Segs 67.8 % 45.0 - 07 [facility] 75.0 [facility] CHEMISTRY Lactic Acid 1.7 mMol/L 0.5 - 2.2 03/07 [facility] Lvl [facility] CHEMISTRY Total CK 21 unit/L 12 - 191 03/07 Normal [facility] CHEMISTRY Troponin-I null 0.00 - 07 Normal [facility] 0.40 /2012 [facility] CHEMISTRY eGFR 104 03/07 NA 6Result Comment: The eGFR is calculated using the CKD-EPI formula. In most young, healthy individuals the eGFR will be > 90 mL/min/1.73m2. The eGFR declines with age. An eGFR of 60-89 may be normal in [facility] mL/min/1.7 /2012 some populations, particularly the elderly, for whom the CKD-EPI formula has not been extensively validated. Use of the eGFR is not recommended in the following populations: [address] Individuals with unstable creatinine concentrations, including [...] CHEMISTRY CO2 27 meq/L 24 - 32 07 Normal [facility] CHEMISTRY Potassium Lvl 3.6 meq/L 3.5 - 5.1 03/07 Normal [facility]2012 [facility] CHEMISTRY Chloride Lvl 99 meq/L 95 - 109 03/07 Normal [facility] CHEMISTRY Sodium Lvl 134 meq/L 135 - 145 03/07 LOW [facility] CHEMISTRY BUN 5 mg/dL 7 - 22 03/07 LOW [facility] CHEMISTRY Creatinine 0.7 mg/dL 0.5 - 1.4 03/07 Normal [facility] Lvl [facility] CHEMISTRY Glucose Lvl 233 mg/dL 70 - 99 03/07 HI 9Interpretive Data: Adult reference range values reflect the clinical guidelines of the [place] [employer]. [facility] CHEMISTRY Calcium Lvl 7.7 mg/dL 8.5 - 10.5 03/07 LOW [facility] CHEMISTRY AGAP 11.6 meq/L 10.0 - 07 Normal [facility] 20.0 [facility] CHEMISTRY Temp Art 37.0 Abby 03/07 NA [facility] CHEMISTRY pH Art 7.41 7.35 - 03/07 Normal [facility] 7.45 [facility] CHEMISTRY pCO2 Art 34 mm[Hg] 35 - 45 03/07 LOW [facility] CHEMISTRY O2 Sat Art 97.5 % 95.0 - 03/07 Normal [facility] 100.0 [facility] CHEMISTRY HCO3 Art 22 mMol/L 22 - 26 03/07 Normal [facility] CHEMISTRY BE Art -2 mMol/L -2-2 - 2 03/07 Normal [facility] CHEMISTRY pO2 Art 96 mm[Hg] 80 - 100 03/07 Normal [facility] Chest 1view Chest 1view EXAM: CHEST 1 VIEW 03/07 - - Medical This report was dictated by a Manager Hair/Fellow. I have personally reviewed the images as [...] CHEMISTRY Temp Mark 37.0 Abby 03/07 NA [facility] CHEMISTRY pO2 Mark 20 mm[Hg] 20 - 49 03/07 Normal [facility] CHEMISTRY HCO3 Mark 21 mMol/L 22 - 26 03/07 LOW [facility] CHEMISTRY BE Mark -2 mMol/L -2-2 - 2 03/07 Normal [facility] CHEMISTRY O2 Sat Mark 36.2 % 40.0 - 03/07 [facility] 70.0 [facility] CHEMISTRY pCO2 Mark 29 mm[Hg] 38 - 52 03/07 LOW [facility] CHEMISTRY pH Mark 7.46 7.28 - 03/07 [facility] 7.42 [facility] CHEMISTRY Lactic Acid 2.6 mMol/L 0.5 - 2.2 03/07 [facility] Lvl [facility] CHEMISTRY Phosphorus 3.1 mg/dL 2.5 - 4.5 03/07 Normal [facility] CHEMISTRY Magnesium Lvl 1.6 mg/dL 1.8 - 2.4 03/07 LOW [facility] CHEMISTRY Total CK 31 unit/L 12 - 191 03/07 Normal [facility] CHEMISTRY Troponin-I null 0.00 - 03/07 Normal [facility] 0.40 [facility] CHEMISTRY U Preg Negative Negative 03/06 Normal [facility] (03/06/2013 18:25:00) Center URINALYSIS UA Amorph Occasional /HPF None Seen 03/06 [facility] *ABN* [place] (03/06/2013 18:25:00) URINALYSIS UA Mucus Few /LPF None Seen 03/06 Normal [facility] (03/06/2013 18:25:00) Center URINALYSIS Micro? Performed 03/06 Normal [facility] (03/06/2013 18:25:00) Center URINALYSIS UA Sq Epi Moderate /LPF Few 03/06 [facility] Medical *ABN* [place] (03/06/2013 18:25:00) URINALYSIS UA WBC 0-2 /HPF None Seen 03/06 Normal [facility] (03/06/2013 18:25:00) Center URINALYSIS UA RBC None Seen 0 - 2 03/06 Normal [facility] (03/06/2013 18:25:00) Center URINALYSIS UA Bacteria Few /HPF None Seen 03/06 Normal [facility] (03/06/2013 18:25:00) Center URINALYSIS UA Bili Negative Negative 03/06 NA Medical *NA* [place] (03/06/2013 18:25:00) URINALYSIS UA 0.2 EU/dL 0.1 - 1.0 03/06 Normal [facility] Urobilinogen /2012 [facility] URINALYSIS UA Nitrite Negative Negative 03/06 Normal [facility] (03/06/2013 18:25:00) [place] URINALYSIS UA Leuk Est Trace Negative 03/06 [facility] Medical *ABN* [place] (03/06/2013 18:25:00) URINALYSIS UA Blood Negative Negative 03/06 Normal [facility] (03/06/2013 18:25:00) [place] URINALYSIS UA Ketones 40 mg/dL Negative 03/06 [facility] Medical *ABN* [place] (03/06/2013 18:25:00) URINALYSIS UA Turbidity Clear Clear 03/06 Normal [facility] (03/06/2013 18:25:00) Center URINALYSIS UA Color Yellow Yellow 03/06 NA [facility] *NA* [place] (03/06/2013 18:25:00) URINALYSIS UA Spec Grav 1.015 <=1.030 03/06 Normal [facility] URINALYSIS UA Protein Negative Negative 03/06 Normal [facility] (03/06/2013 18:25:00) Center URINALYSIS UA Glucose 250 mg/dL Negative 03/06 [facility] *ABN* [place] (03/06/2013 18:25:00) URINALYSIS UA pH 7.5 5.0 - 8.0 03/06 Normal [facility] Chest 2 Chest 2 views EXAM: CHEST 2 VIEWS 03/06 - [facility] - Medical This report was dictated by a Manager Hair/Fellow. I have personally reviewed the images as [...] left pleural effusion. BEDSIDE Comment1 Notify 12/07 [facility] Fei GLUCOSE MARTÍNEZ/ [facility] TESTING Center BEDSIDE Gluc POC 64 mg/dL 70 - 99 12/07 LOW 3Interpretive [facility] GLUCOSE [employer] Data: [facility] Upper Reportable Limit: 200 mg/dL. BEDSIDE Gluc POC 50 mg/dL 70 - 99 / LOW 4Interpretive [facility] GLUCOSE [employer] Data: [facility] Upper Reportable Limit: 200 mg/dL. BEDSIDE Comment1 Notify 12/07 [facility] Fei GLUCOSE MARTÍNEZ/ /2012 [facility] TESTING [place] BEDSIDE Gluc POC 45 mg/dL 70 - 99 12/07 LOW 5Interpretive [facility] GLUCOSE [employer] Data: [facility] Upper Reportable Limit: 200 mg/dL. BEDSIDE Comment1 Notify 12/07 [facility] Fei ROACH RN/ /2012 [facility] CHEMISTRY eGFR 109 12/07 NA 7Result Comment: The eGFR is calculated using the CKD-EPI formula. In most young, healthy individuals the eGFR will be > 90 mL/min/1.73m2. The eGFR declines with age. An eGFR of 60-89 may be normal in [facility] mL/min/1.7 /2012 some populations, particularly the elderly, for whom the CKD-EPI formula has not been extensively validated. Use of the eGFR is not recommended in the following populations: [address] Center Individuals with unstable creatinine concentrations, [...] 8.3 mg/dL 8.5 - 10.5 12/07 LOW [facility] CHEMISTRY AGAP 12.8 meq/L 10.0 - 12/07 Normal [facility] 20.0 [facility] CHEMISTRY BUN 2 mg/dL 7 - 22 12/07 LOW [facility] CHEMISTRY Glucose Lvl 95 mg/dL 70 - 99 12/07 Normal 10Interpretive Data: Adult reference range values reflect the clinical guidelines of the [place] [employer]. [facility] Center CHEMISTRY Potassium Lvl 3.8 meq/L 3.5 - 5.1 12/07 Normal [facility] CHEMISTRY Creatinine 0.6 mg/dL 0.5 - 1.4 12/07 Normal [facility] CHEMISTRY Sodium Lvl 140 meq/L 135 - 145 12/07 Normal [facility] CHEMISTRY Chloride Lvl 105 meq/L 95 - 109 12/07 Normal [facility] CHEMISTRY CO2 26 meq/L 24 - 32 12/07 Normal [facility] BEDSIDE Comment2 Verify 12/06 NA [facility] GLUCOSE wLab [facility] BEDSIDE Comment2 Verify 12/06 NA [facility] GLUCOSE w/Lab [facility] CHEMISTRY AGAP 13.5 meq/L 10.0 - 12/06 Normal [facility] .0 [facility] CHEMISTRY Calcium Lvl 8.1 mg/dL 8.5 - 10.5 12/06 LOW [facility] CHEMISTRY CO2 28 meq/L 24 - 32 12/06 Normal [facility] CHEMISTRY Chloride Lvl 101 meq/L 95 - 109 12/06 Normal [facility] CHEMISTRY eGFR 104 04 NA 8Result Comment: The eGFR is calculated using the CKD-EPI formula. In most young, healthy individuals the eGFR will be > 90 mL/min/1.73m2. The eGFR declines with age. An eGFR of 60-89 may be normal in [facility] mL/min/1.7 some populations, particularly the elderly, for whom the CKD-EPI formula has not been extensively validated. Use of the eGFR is not recommended in the following populations: [address] Individuals with unstable creatinine concentrations, including [...] reference range values reflect the clinical guidelines [facility] of the [place] [employer]. [facility] CHEMISTRY BUN 2 mg/dL 7 - 22 04 LOW [facility]2012 [facility] CHEMISTRY Creatinine 0.7 mg/dL 0.5 - 1.4 / Normal [facility] CHEMISTRY Sodium Lvl 139 meq/L 135 - 145 / Normal [address] CHEMISTRY Potassium Lvl 3.5 meq/L 3.5 - 5.1 12/06 Normal [facility]2012 [facility] CHEMISTRY Lipase Lvl 62 unit/L 73 - 393 04/ LOW [address] CHEMISTRY Alk Phos 92 unit/L 39 - 136 04/ Normal [facility]2012 [facility] CHEMISTRY Albumin Lvl 2.7 g/dL 3.5 - 5.0 / [facility]2012 [facility] CHEMISTRY Total Protein 5.8 g/dL 6.4 - 8.4 / [address] CHEMISTRY Globulin 3.1 g/dL 2.0 - 4.0 / Normal [facility]2012 [facility] CHEMISTRY A/G Ratio 0.9 0.7 - 1.6 / Normal [facility]2012 [facility] CHEMISTRY AST 74 unit/L 0 - 37 04/ HI [facility]2012 [facility] CHEMISTRY ALT 50 unit/L 0 - 65 04/ Normal [facility]2012 [facility] CHEMISTRY Bili Indirect 0.1 mg/dL 0.0 - 1.0 / Normal [facility]2012 [facility] CHEMISTRY Bili Total 0.2 mg/dL 0.2 - 1.3 / Normal [facility]2012 [facility] CHEMISTRY Bili Direct 0.1 mg/dL 0.0 - 0.3 12/06 Normal [facility]2012 [facility] CHEMISTRY eGFR 109 04/ NA 9Result Comment: The eGFR is calculated using the CKD-EPI formula. In most young, healthy individuals the eGFR will be > 90 mL/min/1.73m2. The eGFR declines with age. An eGFR of 60-89 may be normal in [facility] mL/min/1.7 some populations, particularly the elderly, for whom the CKD-EPI formula has not been extensively validated. Use of the eGFR is not recommended in the following populations: [address] Individuals with unstable creatinine concentrations, including [...] values reflect the clinical guidelines of the [place] [employer]. [facility] CHEMISTRY Creatinine 0.6 mg/dL 0.5 - 1.4 12/05 Normal [facility] Lvl [facility] CHEMISTRY BUN 1 mg/dL 7 - 22 12/05 LOW [facility] CHEMISTRY Chloride Lvl 102 meq/L 95 - 109 12/05 Normal [facility] CHEMISTRY Potassium Lvl 3.3 meq/L 3.5 - 5.1 12/05 [facility] CHEMISTRY Sodium Lvl 140 meq/L 135 - 145 12/05 Normal [facility] CHEMISTRY Calcium Lvl 7.9 mg/dL 8.5 - 10.5 12/05 LOW [facility] CHEMISTRY CO2 29 meq/L 24 - 32 12/05 Normal [facility] CHEMISTRY AGAP 12.3 meq/L 10.0 - 12/05 Normal [facility] 20.0 [facility] CHEMISTRY Ca Norm mgdL 4.84 mg/dL 4.65 - 12/03 Normal [facility] 5. [facility] CHEMISTRY Ca Ion mgdL 4.84 mg/dL 4.65 - 12/03 Normal [facility] 5. [facility] CHEMISTRY Ca Ion 1.21 1.16 - 12/03 Normal [facility] mMol/L 1. [facility] CHEMISTRY Ca Norm 1.21 1.16 - 12/03 Normal [facility] mMol/L 1. [facility] CHEMISTRY Magnesium Lvl 1.8 mg/dL 1.8 - 2.4 12/03 Normal [facility] CHEMISTRY Phosphorus 3.4 mg/dL 2.5 - 4.5 12/03 Normal [facility] HEMATOLOGY Lymphocytes # 1.8 K/CMM 1.0 - 5.5 12/03 Normal [facility] HEMATOLOGY Lymphocytes 23.6 % 20.0 - 12/03 Normal [place] 40.0 [facility] HEMATOLOGY Eosinophils 2.9 % 0.0 - 4.0 12/03 Normal [facility] HEMATOLOGY Monocytes 9.1 % 2.0 - 12.0 12/03 Normal [facility] HEMATOLOGY Basophils 0.6 % 0.0 - 1.0 12/03 Normal [facility] HEMATOLOGY Segs-Bands # 5.0 K/CMM 1.5 - 8.1 12/03 Normal [facility] HEMATOLOGY Segs 63.8 % 45.0 - 12/03 [facility] 75.0 [facility] HEMATOLOGY Monocytes # 0.7 K/CMM 0.0 - 0.8 12/03 Normal [facility] HEMATOLOGY Eosinophils # 0.2 K/CMM 0.0 - 0.5 12/03 Normal [facility] HEMATOLOGY Microcyte 1+ None Seen 12/03 ABN Medical *ABN* Center (12/03/2012 01:02:00) HEMATOLOGY WBC 7.8 K/CMM 3.7 - 10.4 12/03 Normal [facility] HEMATOLOGY Hct 27.8 % 36.0 - 12/03 LOW [facility] 48.0 [facility] HEMATOLOGY MPV 8.5 fL 7.4 - 10.4 12/03 Normal [facility] HEMATOLOGY MCHC 32.4 g/dL 32.0 - 12/03 Normal [facility] 36.0 [facility] HEMATOLOGY RDW 18.9 % 11.5 - 12/03 HI [place] 14.5 [facility] HEMATOLOGY MCH 24.6 pg 27.0 - 12/03 LOW [place] 31.0 [facility] HEMATOLOGY RBC 3.66 M/CMM 4.20 - 12/03 LOW [facility] 5.40 [facility] HEMATOLOGY MCV 75.9 fL 81.0 - 12/03 LOW [facility] 99.0 Medical [place] HEMATOLOGY Platelet 224 K/CMM 133 - 450 12/03 Normal [facility] HEMATOLOGY Hgb 9.0 g/dL 12.0 - 12/03 LOW [facility] 16.0 [facility] Microbiolog Culture: 12/02 [facility] y Blood /2012 Medical Center Microbiolog Culture: MRSA 12/02 [facility] y /2012 Medical Center Microbiolog Culture: 12/02 [facility] y Resistant Medical Acinetobacter Center Screen CHEMISTRY Ketone 1.42 <=0.27 12/02 HI [facility] Quantitative mmol/L /2012 [facility] URINALYSIS UA WBC 1 /HPF 0 - 5 12/02 Normal [facility] URINALYSIS UA RBC null 0 - 2 12/02 Normal [facility] URINALYSIS UA <=1.0 0.1 - 1.0 12/02 NA [facility] Urobilinogen mg/dL Medical
*NA*< Center br/>(12/02 04:02:55) <sup> </sup> URINALYSIS UA Sq Epi Moderate /LPF Few 12/02 ABN Medical *ABN* Center (12/02/2012 04:02:55) URINALYSIS UA Leuk Est Negative Negative 12/02 Normal [facility] (12/02/2012 04:02:55) Center URINALYSIS UA Nitrite Negative Negative 12/02 Normal [facility] (12/02/2012 04:02:55) Center URINALYSIS UA Mucus Few /LPF None Seen 12/02 NA Medical *NA* Center (12/02/2012 04:02:55) URINALYSIS UA Ketones 40 mg/dL Negative 12/02 ABN Medical *ABN* Center (12/02/2012 04:02:55) URINALYSIS UA Blood Negative Negative 12/02 Normal [facility] (12/02/2012 04:02:55) Center URINALYSIS UA Glucose >=1000 mg/dL Negative 12/02 ABN [facility] *ABN* Center (12/02/2012 04:02:55) URINALYSIS UA Bili Negative Negative 12/02 NA Medical *NA* Center (12/02/2012 04:02:55) URINALYSIS UA Protein Negative mg/dL Negative 12/02 Normal [facility] (12/02/2012 04:02:55) Center URINALYSIS UA Turbidity Clear Clear 12/02 Normal [facility] (12/02/2012 04:02:55) Center URINALYSIS UA pH 5.5 5.0 - 8.0 12/02 Normal [facility] URINALYSIS UA Spec Grav 1.010 <=1.030 12/02 Normal [facility] URINALYSIS UA Color Yellow Yellow 12/02 NA [facility] *NA* Center (12/02/2012 04:02:55) HEMATOLOGY MPV 8.9 fL 7.4 - 10.4 12/02 Normal [facility] HEMATOLOGY Hct 27.9 % 36.0 - 12/02 [facility] 48.0 [facility] HEMATOLOGY MCV 76.1 fL 81.0 - 12/02 [facility] 99.0 [facility] HEMATOLOGY MCH 25.2 pg 27.0 - 12/02 [facility] 31.0 [facility] HEMATOLOGY MCHC 33.2 g/dL 32.0 - 12/02 Normal [facility] 36.0 [facility] HEMATOLOGY RDW 19.3 % 11.5 - 12/02 [facility] 14.5 [facility] HEMATOLOGY Platelet 224 K/CMM 133 - 450 12/02 Normal [facility] HEMATOLOGY WBC 8.6 K/CMM 3.7 - 10.4 12/02 Normal [facility] HEMATOLOGY Hgb 9.3 g/dL 12.0 - 12/02 [facility] 16.0 [facility] HEMATOLOGY RBC 3.67 M/CMM 4.20 - 12/02 [facility] 5.40 /2012 [facility] HEMATOLOGY Segs-Bands # 6.4 K/CMM 1.5 - 8.1 12/02 Normal [facility] HEMATOLOGY Lymphocytes # 1.5 K/CMM 1.0 - 5.5 12/02 Normal [facility] HEMATOLOGY Eosinophils 0.6 % 0.0 - 4.0 12/02 Normal [facility] HEMATOLOGY Basophils 0.7 % 0.0 - 1.0 12/02 Normal [facility] HEMATOLOGY Lymphocytes 17.3 % 20.0 - 03/29 LOW [facility] 40.0 [facility] HEMATOLOGY Monocytes # 0.7 K/CMM 0.0 - 0.8 12/02 Normal [facility] HEMATOLOGY Microcyte 1+ None Seen 12/02 ABN Medical *ABN* Center (12/02/2012 04:02:51) HEMATOLOGY Eosinophils # 0.1 K/CMM 0.0 - 0.5 12/02 Normal [facility] HEMATOLOGY Basophils # 0.1 K/CMM 0.0 - 0.2 12/02 Normal [facility] HEMATOLOGY Segs 73.8 % 45.0 - 12/02 Normal [facility] 75.0 [facility] HEMATOLOGY Monocytes 7.6 % 2.0 - 12.0 12/02 Normal [facility] Microbiolog Culture: 12/02 [facility] y [facility] CHEMISTRY POC A Glu 305 mg/dL 70 - 99 12/02 HI [facility] CHEMISTRY POC A Hct 29.0 % 36.0 - 12/02 LOW [facility] 48.0 [facility] CHEMISTRY POC A O2 Sat 97.0 % 95.0 - 12/02 Normal [facility] 100.0 [facility] CHEMISTRY POC A K 3.4 meq/L 3.5 - 5.1 12/02 LOW [facility] CHEMISTRY POC A Na 130 meq/L 135 - 145 12/02 LOW [facility] CHEMISTRY POC A PCO2 38 mm[Hg] 35 - 45 12/02 Normal [facility] CHEMISTRY POC A BE 2 mMol/L -2-2 - 2 12/02 Normal [facility] CHEMISTRY POC A HCO3 26 mMol/L 22 - 26 12/02 Normal [facility] CHEMISTRY POC A Source ART 12/02 NA [facility] CHEMISTRY POC A PO2 89 mm[Hg] 80 - 100 12/02 Normal [facility] CHEMISTRY POC A pH 7.44 7.35 - 12/02 Normal [facility] 7.45 [facility] CHEMISTRY POC A Temp 37.0 Abby 12/02 NA [facility] CHEMISTRY POC A Ca Ion 1.12 1.16 - 12/02 LOW [facility] mMol/L 1.30 [facility] CHEMISTRY POC A LA 0.8 mMol/L 0.5 - 2.2 12/02 Normal [facility] CHEMISTRY Magnesium Lvl 1.9 mg/dL 1.8 - 2.4 12/02 Normal [facility] CHEMISTRY Phosphorus 2.7 mg/dL 2.5 - 4.5 12/02 Normal [facility] CHEMISTRY Ca Norm mgdL 4.36 mg/dL 4.65 - 12/02 LOW [facility] . [facility] CHEMISTRY Ca Ion 1.14 1.16 - 12/02 LOW [place] mMol/L 1. [facility] CHEMISTRY Ca Ion mgdL 4.56 mg/dL 4.65 - 12/02 LOW [place] . [facility] CHEMISTRY Ca Norm 1.09 1.16 - 12/02 [facility] [place] mMol/L 1. [facility] HEMATOLOGY Platelet 223 K/CMM 133 - 450 12/02 Normal [facility] HEMATOLOGY MPV 9.2 fL 7.4 - 10.4 12/02 Normal [facility] HEMATOLOGY MCHC 32.3 g/dL 32.0 - 12/02 Normal [facility] 36.0 [facility] HEMATOLOGY RDW 19.2 % 11.5 - 12/02 HI [facility] 14.5 [facility] HEMATOLOGY WBC 7.6 K/CMM 3.7 - 10.4 12/02 Normal [facility] HEMATOLOGY Hgb 9.2 g/dL 12.0 - 12/02 [facility] 16.0 [facility] HEMATOLOGY Hct 28.6 % 36.0 - 12/02 [facility] 48.0 [facility] HEMATOLOGY MCV 76.3 fL 81.0 - 12/02 [facility] 99.0 [facility] HEMATOLOGY MCH 24.6 pg 27.0 - 12/02 [facility] 31.0 [facility] HEMATOLOGY RBC 3.74 M/CMM 4.20 - 12/02 [facility] 5.40 /2012 [facility] HEMATOLOGY Microcyte 1+ None Seen 12/02 [facility] Medical *ABN* Center (12/02/2012 03:00:00) HEMATOLOGY Basophils # 0.1 K/CMM 0.0 - 0.2 12/02 Normal [facility] HEMATOLOGY Monocytes # 0.6 K/CMM 0.0 - 0.8 12/02 Normal [facility] HEMATOLOGY Lymphocytes # 1.9 K/CMM 1.0 - 5.5 12/02 Normal [facility] HEMATOLOGY Segs-Bands # 5.0 K/CMM 1.5 - 8.1 12/02 Normal [facility] HEMATOLOGY Segs 65.5 % 45.0 - 12/02 Normal [facility] 75.0 /2012 [facility] HEMATOLOGY Lymphocytes 25.0 % 20.0 - 12/02 Normal [facility] 40.0 [facility] HEMATOLOGY Monocytes 8.4 % 2.0 - 12.0 12/02 Normal [facility] HEMATOLOGY Eosinophils 0.4 % 0.0 - 4.0 12/02 Normal [facility] HEMATOLOGY Basophils 0.7 % 0.0 - 1.0 12/02 Normal [facility] CHEMISTRY Magnesium Lvl 2.0 mg/dL 1.8 - 2.4 12/01 Normal [facility] CHEMISTRY Ca Norm mgdL 4.48 mg/dL 4.65 - 12/01 LOW [facility] 5. [facility] CHEMISTRY Ca Ion mgdL 4.68 mg/dL 4.65 - 12/01 Normal [facility] 5. [facility] CHEMISTRY Ca Ion 1.17 1.16 - 12/01 Normal [facility] mMol/L 1. [facility] CHEMISTRY Ca Norm 1.12 1.16 - 12/01 LOW [facility] mMol/L 1. [facility] CHEMISTRY Phosphorus 2.7 mg/dL 2.5 - 4.5 12/01 Normal [facility] URINALYSIS UA <=1.0 0.1 - 1.0 11/30 NA [facility] Urobilinogen mg/dL /2012 Medical
*NA*< Center br/>(11/30 17:41:33) <sup> </sup> URINALYSIS UA Mucus Few /LPF None Seen 11/30 NA Medical *NA* Center (11/30/2012 17:41:33) URINALYSIS UA WBC null 0 - 5 11/30 Normal [facility] URINALYSIS UA Sq Epi Moderate /LPF Few 11/30 ABN Medical *ABN* Center (11/30/2012 17:41:33) URINALYSIS UA Protein Negative mg/dL Negative 11/30 Normal [facility] (11/30/2012 17:41:33) Center URINALYSIS UA pH 5.0 5.0 - 8.0 11/30 Normal [facility] Center URINALYSIS UA Spec Grav 1.004 <=1.030 11/30 Normal [facility] URINALYSIS UA Turbidity Clear Clear 11/30 Normal [facility] (11/30/2012 17:41:33) Center URINALYSIS UA Color Light Yellow Yellow 11/30 NA Medical *NA* [place] (11/30/2012 17:41:33) URINALYSIS UA Leuk Est Negative Negative 11/30 Normal [facility] (11/30/2012 17:41:33) Center URINALYSIS UA Nitrite Negative Negative 11/30 Normal [facility] (11/30/2012 17:41:33) Center URINALYSIS UA Blood Negative Negative 11/30 Normal [facility] (11/30/2012 17:41:33) Center URINALYSIS UA Bili Negative Negative 11/30 NA [facility] *NA* [place] (11/30/2012 17:41:33) URINALYSIS UA Ketones 10 mg/dL Negative 11/30 ABN [facility] *ABN* [place] (11/30/2012 17:41:33) URINALYSIS UA Glucose Negative mg/dL Negative 11/30 NA [facility] *NA* [place] (11/30/2012 17:41:33) CHEMISTRY Ketone 1.65 <=0.27 11/30 HI [facility] Quantitative mmol/L /2012 [facility] HEMATOLOGY PT 14.1 s 12.0 - 11/30 Normal [facility] 14.7 [facility] Center HEMATOLOGY PTT 28.1 s 22.9 - 11/30 Normal 18Interpretiv [facility] 35.8 /2013 e Data: [facility] Therapeutic Range: 57 - 92 Seconds HEMATOLOGY INR 1.07 0.85 - 11/30 Normal 16Interpretive Data: RECOMMENDED RANGES FOR PROTIME INR: [facility] . 2.0-3.0 for most medical and surgical thromboembolic states. Medical 2.5-3.5 for artificial heart valves and recurrent embolism. Center INR SHOULD BE USED ONLY FOR PATIENTS ON STABLE ANTICOAGULANT THERAPY. CHEMISTRY U Potassium 31.2 meq/L 11/30 NA 14Interpretiv e Data: No Medical established Center reference ranges. CHEMISTRY U Sodium 87 meq/L 11/30 NA 13Interpretiv e Data: No Medical established Center reference ranges. CHEMISTRY U Chloride 134 meq/L 11/30 NA [facility] CHEMISTRY Bili Total 0.4 mg/dL 0.2 - 1.3 11/30 Normal [facility] CHEMISTRY Total Protein 6.3 g/dL 6.4 - 8.4 11/30 LOW [facility] CHEMISTRY Albumin Lvl 2.9 g/dL 3.5 - 5.0 11/30 LOW [facility] CHEMISTRY Alk Phos 127 unit/L 39 - 136 11/30 Normal [facility] CHEMISTRY Bili Direct 0.2 mg/dL 0.0 - 0.3 11/30 Normal [facility] CHEMISTRY AST 22 unit/L 0 - 37 11/30 Normal [facility] CHEMISTRY ALT 20 unit/L 0 - 65 11/30 Normal [facility] CHEMISTRY A/G Ratio 0.9 0.7 - 1.6 11/30 Normal [facility] CHEMISTRY Bili Indirect 0.2 mg/dL 0.0 - 1.0 11/30 Normal [facility] CHEMISTRY Globulin 3.4 g/dL 2.0 - 4.0 11/30 Normal [facility] HEMATOLOGY Basophils # 0.1 K/CMM 0.0 - 0.2 11/30 Normal [facility] HEMATOLOGY PT 13.9 s 12.0 - 11/30 Normal [facility] 14.7 [facility] HEMATOLOGY PTT 26.5 s 22.9 - 11/30 Normal 19Interpretiv [facility] 35.8 /2012 e Data: [facility] Therapeutic Range: 57 - 92 Seconds HEMATOLOGY INR 1.05 0.85 - 11/30 Normal 17Interpretive Data: RECOMMENDED RANGES FOR PROTIME INR: [facility] . 2.0-3.0 for most medical and surgical thromboembolic states. Medical 2.5-3.5 for artificial heart valves and recurrent embolism. Center INR SHOULD BE USED ONLY FOR PATIENTS ON STABLE ANTICOAGULANT THERAPY. CHEMISTRY POC V Temp 37.0 Abby 11/29 NA [facility] CHEMISTRY POC V Ion Ca 1.16 1.16 - 11/29 Normal [facility] [place] mMol/L 1.30 [facility] Center CHEMISTRY POC V K 3.5 meq/L 3.5 - 5.1 11/29 Normal [facility] CHEMISTRY POC V Na 139 meq/L 135 - 145 11/29 Normal [facility] CHEMISTRY POC V LA 0.8 mMol/L 0.5 - 2.2 11/29 Normal [facility] CHEMISTRY POC V Source MARK 11/29 NA Medical Center CHEMISTRY POC V O2 Sat 86.0 % 40.0 - 11/29 HI [place] 70.0 Medical Center CHEMISTRY POC V Glu 144 mg/dL 70 - 99 11/29 HI [facility] CHEMISTRY POC V BE -4 mmol/L -2-2 - 2 11/29 LOW [facility] [place] CHEMISTRY POC V pH 7.42 7.28 - 11/29 Normal [facility] 7.42 Medical Center CHEMISTRY POC V PCO2 31 mm[Hg] 38 - 52 11/29 LOW [facility] CHEMISTRY POC V PO2 51 mm[Hg] 20 - 49 11/29 HI [facility] CHEMISTRY POC V HCO3 20 mmol/L 22 - 26 11/29 LOW [facility] CHEMISTRY Troponin-I 0.05 ng/mL 0.00 - 11/29 Normal [facility] 0.40 Medical Center CHEMISTRY Total CK 46 unit/L 12 - 191 11/29 Normal [facility] CHEMISTRY Troponin-T null 0.000 - 11/29 Normal 0.100 Medical Center CHEMISTRY Ketone 4.63 <=0.27 11/29 HI [place] Quantitative mmol/L Medical Center CHEMISTRY POC A Ca Ion 1.17 1.16 - 11/29 Normal [place] mMol/L 1.30 Medical Center CHEMISTRY POC A K 3.6 meq/L 3.5 - 5.1 11/29 Normal [facility] CHEMISTRY POC A Na 137 meq/L 135 - 145 11/29 Normal [facility] CHEMISTRY POC A Glu 327 mg/dL 70 - 99 11/29 HI [facility] CHEMISTRY POC A LA 1.3 mMol/L 0.5 - 2.2 11/29 Normal [facility] CHEMISTRY POC A Temp 37.0 Abby 11/29 NA Medical Center CHEMISTRY POC A Source ART 11/29 NA [facility] CHEMISTRY POC A O2 Sat 98.0 % 95.0 - 11/29 Normal [facility] 100.0 [facility] CHEMISTRY POC A BE -11 mMol/L -2-2 - 2 11/29 LOW [facility] CHEMISTRY POC A HCO3 14 mMol/L 22 - 26 11/29 LOW [facility] CHEMISTRY POC A PCO2 26 mm[Hg] 35 - 45 11/29 CRIT [facility] CHEMISTRY POC A PO2 115 mm[Hg] 80 - 100 11/29 HI [facility] CHEMISTRY POC A pH 7.33 7.35 - 11/29 LOW [facility] 7.45 [facility] BACTERIAL - MRSA by PCR Positive 1, 2 11/29 ABN 2Interpretive Data: Interpretive Data: The [employer] MRSA assay is a qualitative test for the direct detection of nasal colonization with methicillin-resistant Staphylococcus aureus (MRSA) to aid [facility] in the prevention and control of [...] by the Molecular Diagnostic Laboratory within the [facility]. The Molecular Diagnostic Labor atory is authorized under the Clinical Laboratory Improvement Amendment of 1988 (CLIA-88) to perform high complexity testing. CHEMISTRY Temp Art 37.0 Abby 11/29 NA [facility] CHEMISTRY O2 Sat Art 96.6 % 95.0 - 11/29 Normal [facility] 100.0 [facility] CHEMISTRY pO2 Art 96 mm[Hg] 80 - 100 11/29 Normal [facility] CHEMISTRY pCO2 Art 25 mm[Hg] 35 - 45 11/29 CRIT 15Result Comment: [facility] Result(s) called to jose rodriguez at _11/29/2012 12:25:56 CDT bykak_. Read back OK. CHEMISTRY BE Art -12 mMol/L -2-2 - 2 11/29 LOW [facility] CHEMISTRY HCO3 Art 12 mMol/L - 11/29 LOW [facility] CHEMISTRY pH Art 7.30 7.35 - 11/29 LOW [facility] 7.45 [facility] CHEMISTRY A/G Ratio 0.8 0.7 - 1.6 11/29 Normal [facility] CHEMISTRY Globulin 4.0 g/dL 2.0 - 4.0 11/29 Normal [facility] CHEMISTRY AST 17 unit/L 0 - 37 11/29 Normal [facility] CHEMISTRY Bili Total 0.8 mg/dL 0.2 - 1.3 11/29 Normal [facility] CHEMISTRY B/C Ratio 14 - 11/29 Normal [facility] CHEMISTRY Total Protein 7.4 g/dL 6.4 - 8.4 11/29 Normal [facility] CHEMISTRY ALT 22 unit/L 0 - 65 11/29 Normal [facility] CHEMISTRY Albumin Lvl 3.4 g/dL 3.5 - 5.0 11/29 LOW [facility] CHEMISTRY Alk Phos 126 unit/L 39 - 136 11/29 Normal [facility] CHEMISTRY Troponin-I null 0.00 - 11/29 Normal [facility] 0.40 [facility] CHEMISTRY Lipase Lvl 70 unit/L 73 - 393 11/29 LOW [facility] CHEMISTRY B/C Ratio 10 - 11/29 Normal [facility] HEMATOLOGY Hypochrom Slight None Seen 11/29 Normal [facility] (11/28/2012 21:00:20) Center HEMATOLOGY Polychrom Slight None Seen 11/29 Normal [facility] (11/28/2012 21:00:20) Center HEMATOLOGY Anisocyte 1+ None Seen 11/29 ABN [facility] *ABN* Center (11/28/2012 21:00:20) HEMATOLOGY Large Plt Slight None Seen 11/29 [facility] Medical *ABN* Center (11/28/2012 21:00:20) HEMATOLOGY Eosinophils # 0.2 K/CMM 0.0 - 0.5 11/29 Normal [facility] CHEMISTRY U Preg Negative Negative 11/29 Normal Medical (11/28/2012 20:55:00) Center URINALYSIS UA Blood Negative Negative 11/29 Normal [facility] (11/28/2012 20:55:00) [place] URINALYSIS UA Bili Small 6 Negative 11/29 ABN 6Result Comment: Interpret positive bilirubin results with caution. Confirmatory testing not possible due to the unavailability of reagent. Correlation with Medical *ABN* serum chemistry results recommended. [place] (11/28/2012 20:55:00) URINALYSIS UA Protein Negative Negative 11/29 Normal [facility] (11/28/2012 20:55:00) [place] URINALYSIS Micro? Not Indicated 11/29 Normal [facility] (11/28/2012 20:55:00) [place] URINALYSIS UA Glucose Negative Negative 11/29 Normal [facility] (11/28/2012 20:55:00) [place] URINALYSIS UA Ketones 40 mg/dL Negative 11/29 ABN Medical *ABN* [place] (11/28/2012 20:55:00) URINALYSIS UA Leuk Est Negative Negative 11/29 Normal [facility] (11/28/2012 20:55:00) [place] URINALYSIS UA 0.2 EU/dL 0.1 - 1.0 11/29 Normal [facility] Urobilinogen /2012 [facility] URINALYSIS UA Nitrite Negative Negative 11/29 Normal [facility] (11/28/2012 20:55:00) [place] URINALYSIS UA Spec Grav 1.010 <=1.030 11/29 Normal [facility] URINALYSIS UA pH 6.0 5.0 - 8.0 11/29 Normal [facility] URINALYSIS UA Color Yellow Yellow 11/29 NA Medical *NA* [place] (11/28/2012 20:55:00) URINALYSIS UA Turbidity Clear Clear 11/29 Normal Medical (11/28/2012 20:55:00) Center BEDSIDE Comment1 Notify 11/17 NA [facility] GLUCOSE RN/MD /2012 Medical TESTING Center BEDSIDE Gluc POC 219 mg/dL 70 - 99 11/17 HI 1Interpretive [facility] GLUCOSE Lifmdn Data: Medical TESTING Center Upper Reportable Limit: 200 mg/dL. BEDSIDE Gluc POC 255 mg/dL 70 - 99 11/17 HI 2Interpretive [facility] GLUCOSE Lifscn Data: Medical TESTING Center Upper Reportable Limit: 200 mg/dL. BEDSIDE Comment1 Notify 11/17 NA [facility] GLUCOSE RN/MD /2012 [facility] Center CHEMISTRY Troponin-T null 0.000 - 11/17 Normal [facility] 0.100 [facility] CHEMISTRY Troponin-I null 0.00 - 11/17 Normal [facility] 0.40 [facility] CHEMISTRY Total CK 52 unit/L 12 - 191 11/17 Normal [facility] CHEMISTRY eGFR 109 11/17 NA 4Result Comment: The eGFR is calculated using the CKD-EPI formula. In most young, healthy individuals the eGFR will be > 90 mL/min/1.73m2. The eGFR declines with age. An eGFR of 60-89 may be normal in [facility] mL/min/1.7 some populations, particularly the elderly, for whom the CKD-EPI formula has not been extensively validated. Use of the eGFR is not recommended in the following populations: [place] [id number] Center Individuals with unstable creatinine concentrations, including [...] 7.7 mg/dL 8.5 - 10.5 11/17 LOW [facility] CHEMISTRY AGAP 16.2 meq/L 10.0 - 11/17 Normal [facility] 20.0 [facility] CHEMISTRY Chloride Lvl 100 meq/L 95 - 109 11/17 Normal [facility] CHEMISTRY Potassium Lvl 4.2 meq/L 3.5 - 5.1 11/17 Normal [facility] CHEMISTRY Sodium Lvl 134 meq/L 135 - 145 11/17 LOW [facility] CHEMISTRY CO2 22 meq/L 24 - 32 11/17 [facility] CHEMISTRY Creatinine 0.6 mg/dL 0.5 - 1.4 11/17 Normal [facility] /2012 [facility] CHEMISTRY BUN 4 mg/dL 7 - 22 11/17 [facility] CHEMISTRY Glucose Lvl 237 mg/dL 70 - 99 11/17 HI 6Interpretive Data: Adult reference range values reflect the clinical guidelines of the [place] [employer]. [facility] CHEMISTRY Magnesium Lvl 1.4 mg/dL 1.8 - 2.4 11/17 LOW [facility] CHEMISTRY Phosphorus 3.4 mg/dL 2.5 - 4.5 11/17 Normal [facility] HEMATOLOGY Segs 60.3 % 45.0 - 11/17 Normal [facility] 75.0 /2012 [facility] HEMATOLOGY Monocytes 9.0 % 2.0 - 12.0 11/17 Normal [facility] HEMATOLOGY Lymphocytes 27.8 % 20.0 - 11/17 Normal [facility] 40.0 [facility] HEMATOLOGY Eosinophils 2.1 % 0.0 - 4.0 11/17 Normal [facility] HEMATOLOGY Lymphocytes # 2.3 K/CMM 1.0 - 5.5 11/17 Normal [facility] HEMATOLOGY Eosinophils # 0.2 K/CMM 0.0 - 0.5 11/17 Normal [facility] HEMATOLOGY Basophils 0.8 % 0.0 - 1.0 11/17 Normal [facility] HEMATOLOGY Segs-Bands # 5.1 K/CMM 1.5 - 8.1 11/17 Normal [facility] HEMATOLOGY Basophils # 0.1 K/CMM 0.0 - 0.2 11/17 Normal [facility] HEMATOLOGY Monocytes # 0.8 K/CMM 0.0 - 0.8 11/17 Normal [facility] HEMATOLOGY Microcyte 1+ None Seen 11/17 ABN Medical *ABN* Center (11/17/2012 04:33:00) HEMATOLOGY INR 1.09 0.85 - 11/17 Normal 8Interpretive Data: RECOMMENDED RANGES FOR PROTIME INR: [facility] . 2.0-3.0 for most medical and surgical thromboembolic states. Medical 2.5-3.5 for artificial heart valves and recurrent embolism. Center INR SHOULD BE USED ONLY FOR PATIENTS ON STABLE ANTICOAGULANT THERAPY. HEMATOLOGY PT 14.3 s 12.0 - 11/17 Normal [facility] 14.7 [facility] HEMATOLOGY PTT 31.8 s 22.9 - 11/17 Normal 9Interpretive [facility] 35.8 Data: Heparin [facility] Therapeutic Center Range: 57 - 92 Seconds HEMATOLOGY Platelet 177 K/CMM 133 - 450 11/17 Normal [facility] HEMATOLOGY MPV 9.5 fL 7.4 - 10.4 11/17 Normal [facility] [place] HEMATOLOGY MCH 24.5 pg 27.0 - 11/17 LOW [facility] 31.0 /2012 Medical [place] HEMATOLOGY RDW 18.9 % 11.5 - 11/17 HI [facility] 14.5 /2012 Medical Center HEMATOLOGY MCHC 32.3 g/dL 32.0 - 11/17 Normal [facility] 36.0 /2012 Medical Center HEMATOLOGY MCV 75.9 fL 81.0 - 11/17 LOW [facility] 99.0 /2012 [facility] Center HEMATOLOGY RBC 3.67 M/CMM 4.20 - 11/17 LOW [facility] 5.40 /2012 Medical Center HEMATOLOGY WBC 8.4 K/CMM 3.7 - 10.4 11/17 Normal [facility] HEMATOLOGY Hct 27.9 % 36.0 - 11/17 [facility] 48.0 /2012 Medical Center HEMATOLOGY Hgb 9.0 g/dL 12.0 - 11/17 LOW [facility] 16.0 Medical Center CHEMISTRY Troponin-T null 0.000 - 11/17 Normal [facility] 0.100 [facility] Center CHEMISTRY Troponin-I null 0.00 - 11/17 Normal [facility] 0.40 [facility] Center CHEMISTRY Total CK 76 unit/L 11/17 Normal [facility] CHEMISTRY CK MB Index 0.8 0.0 - 2.5 11/17 Normal [facility] CHEMISTRY CK MB 0.6 ng/mL 0.5 - 3.6 11/17 Normal Medical [facility] BEDSIDE Gluc POC 305 mg/dL 70 - 99 11/17 [place] 3Interpretive [facility] GLUCOSE Lifscn Data: Medical TESTING Center Upper Reportable Limit: 200 mg/dL. BEDSIDE Comment1 Notify 11/17 NA [facility] GLUCOSE RN/MD /2012 Medical [facility] Center CHEMISTRY Magnesium Lvl 1.4 mg/dL 1.8 - 2.4 11/16 LOW [facility] CHEMISTRY Total CK 27 unit/L 11/16 Normal [facility] Center CHEMISTRY Troponin-T null 0.000 - 11/16 Normal [facility] 0.100 [facility] Center CHEMISTRY Troponin-I null 0.00 - 11/16 Normal [facility] 0.40 Medical Center CHEMISTRY B/C Ratio 6 6 - 25 11/16 Normal MH [facility] CHEMISTRY A/G Ratio 1.0 0.7 - 1.6 11/16 Normal [facility] CHEMISTRY AGAP 18.6 meq/L 10.0 - 11/16 Normal [facility] 20.0 [facility] CHEMISTRY Globulin 3.5 g/dL 2.0 - 4.0 11/16 Normal [facility] CHEMISTRY eGFR 67 11/16 NA 5Result Comment: The eGFR is calculated using the CKD-EPI formula. In most young, healthy individuals the eGFR will be > 90 mL/min/1.73m2. The eGFR declines with age. An eGFR of 60-89 may be normal in [facility] mL/min/1.7 some populations, particularly the elderly, for whom the CKD-EPI formula has not been extensively validated. Use of the eGFR is not recommended in the following populations: [address] Individuals with unstable creatinine concentrations, including [...] 3.4 g/dL 3.5 - 5.0 11/16 LOW [facility] CHEMISTRY Alk Phos 88 unit/L 39 - 136 11/16 Normal [facility] CHEMISTRY Glucose Lvl 256 mg/dL 70 - 99 11/16 HI 7Interpretive Data: Adult reference range values reflect the clinical guidelines of the [place] [employer]. [facility] CHEMISTRY BUN 6 mg/dL 7 - 22 11/16 LOW [facility] CHEMISTRY Sodium Lvl 136 meq/L 135 - 145 11/16 Normal [facility] CHEMISTRY Chloride Lvl 99 meq/L 95 - 109 11/16 Normal [facility] CHEMISTRY Creatinine 1.0 mg/dL 0.5 - 1.4 11/16 Normal [facility] CHEMISTRY Potassium Lvl 3.6 meq/L 3.5 - 5.1 11/16 Normal [facility] CHEMISTRY CO2 22 meq/L 24 - 32 11/16 LOW [facility] CHEMISTRY Calcium Lvl 8.8 mg/dL 8.5 - 10.5 11/16 Normal [facility] CHEMISTRY Bili Total 0.6 mg/dL 0.2 - 1.3 11/16 Normal [facility] CHEMISTRY Total Protein 6.9 g/dL 6.4 - 8.4 11/16 Normal [facility] CHEMISTRY AST 52 unit/L 0 - 37 11/16 HI [facility] CHEMISTRY ALT 52 unit/L 0 - 65 11/16 Normal [facility] CHEMISTRY Phosphorus 1.6 mg/dL 2.5 - 4.5 11/16 LOW [facility] HEMATOLOGY Lymphocytes 16.8 % 20.0 - 11/16 LOW [facility] 40.0 [facility] HEMATOLOGY Segs 72.3 % 45.0 - 11/16 [facility] 75.0 [facility] HEMATOLOGY Large Plt Slight None Seen 11/16 [facility] (11/16/2012 13:17:00) HEMATOLOGY Elliptocyte Slight None Seen 11/16 [facility] (11/16/2012 13:17:00) HEMATOLOGY Polychrom Slight None Seen 11/16 [facility] (11/16/2012 13:17:00) Center HEMATOLOGY Microcyte 1+ None Seen 11/16 [facility] (11/16/2012 13:17:00) HEMATOLOGY Basophils # 0.1 K/CMM 0.0 - 0.2 11/16 Normal [facility] HEMATOLOGY Hypochrom Slight None Seen 11/16 Normal [facility] (11/16/2012 13:17:00) Center HEMATOLOGY Anisocyte 1+ None Seen 11/16 [facility] (11/16/2012 13:17:00) HEMATOLOGY Schistocyte Occasional 11/16 NA [facility] HEMATOLOGY Monocytes 8.6 % 2.0 - 12.0 11/16 Normal [facility] HEMATOLOGY Eosinophils 1.5 % 0.0 - 4.0 11/16 Normal [facility] HEMATOLOGY Monocytes # 1.1 K/CMM 0.0 - 0.8 11/16 HI [facility] HEMATOLOGY Segs-Bands # 9.7 K/CMM 1.5 - 8.1 11/16 [facility] Medical Center HEMATOLOGY Eosinophils # 0.2 K/CMM 0.0 - 0.5 11/16 Normal [facility] HEMATOLOGY Lymphocytes # 2.2 K/CMM 1.0 - 5.5 11/16 Normal [facility] HEMATOLOGY Basophils 0.8 % 0.0 - 1.0 11/16 Normal [facility] HEMATOLOGY Hgb 10.8 g/dL 12.0 - 11/16 LOW [place] 16.0 /2012 Medical Center HEMATOLOGY RBC 4.29 M/CMM 4.20 - 11/16 Normal [place] 5.40 /2012 Medical Center HEMATOLOGY WBC 13.3 K/CMM 3.7 - 10.4 11/16 [facility] Center HEMATOLOGY RDW 18.0 % 11.5 - 11/16 [facility] [place] 14.5 /2012 Medical Center HEMATOLOGY Hct 32.4 % 36.0 - 11/16 LOW [place] 48.0 /2012 Medical Center HEMATOLOGY MCHC 33.3 g/dL 32.0 - 11/16 Normal [facility] 36.0 /2012 Medical Center HEMATOLOGY MCV 75.4 fL 81.0 - 11/16 LOW [place] 99.0 /2012 Medical Center HEMATOLOGY MCH 25.1 pg 27.0 - 11/16 [facility] 31.0 /2012 Medical Center HEMATOLOGY Platelet 230 K/CMM 133 - 450 11/16 Normal [facility] HEMATOLOGY MPV 9.9 fL 7.4 - 10.4 11/16 Normal [facility] BEDSIDE Comment1 Notify 11/14 NA [facility] GLUCOSE MART[facility]NEZ/ /2012 Medical TESTING Center BEDSIDE Gluc POC 266 mg/dL 11/14 [place] 2Interpretive [facility] GLUCOSE Lifsc Data: Medical TESTING Center Upper Reportable Limit: 200 mg/dL. BEDSIDE Comment1 Notify 11/14 NA [facility] GLUCOSE [facility]ART[facility]/ /2012 [facility] Center BEDSIDE Gluc POC 140 mg/dL - 11/14 [place] 3Interpretive [facility] GLUCOSE Lifsc Data: Medical TESTING Center Upper Reportable Limit: 200 mg/dL. BEDSIDE Comment1 Notify 11/14 NA [facility] GLUCOSE MARTÍNEZ/ /2012 Medical TESTING Center BEDSIDE Gluc POC 201 mg/dL - 11/14 [place] 4Interpretive [facility] GLUCOSE Lifsc Data: [facility] Upper Reportable Limit: 200 mg/dL. CHEMISTRY A/G Ratio 0.9 0.7 - 1.6 11/14 Normal [facility] CHEMISTRY AST 41 unit/L 0 - 37 11/14 HI [facility] CHEMISTRY eGFR 104 11/14 NA 6Result Comment: The eGFR is calculated using the CKD-EPI formula. In most young, healthy individuals the eGFR will be > 90 mL/min/1.73m2. The eGFR declines with age. An eGFR of 60-89 may be normal in [facility] mL/min/1.7 some populations, particularly the elderly, for whom the CKD-EPI formula has not been extensively validated. Use of the eGFR is not recommended in the following populations: [address] Individuals with unstable creatinine concentrations, including [...] 2.9 g/dL 3.5 - 5.0 11/14 LOW [facility] CHEMISTRY Alk Phos 84 unit/L 39 - 136 11/14 Normal [facility] CHEMISTRY BUN 3 mg/dL 7 - 22 11/14 LOW [facility] CHEMISTRY Creatinine 0.7 mg/dL 0.5 - 1.4 11/14 Normal [facility] CHEMISTRY Sodium Lvl 136 meq/L 135 - 145 11/14 Normal [facility] CHEMISTRY Total Protein 6.3 g/dL 6.4 - 8.4 11/14 LOW [facility] CHEMISTRY ALT 51 unit/L 0 - 65 11/14 Normal [facility] CHEMISTRY Potassium Lvl 3.7 meq/L 3.5 - 5.1 11/14 Normal [facility] CHEMISTRY Chloride Lvl 101 meq/L 95 - 109 11/14 Normal [facility] CHEMISTRY Glucose Lvl 210 mg/dL 70 - 99 11/14 [place] 9Interpretive Data: Adult reference range values reflect the clinical guidelines of the [place] [employer]. [facility] Center CHEMISTRY AGAP 15.7 meq/L 10.0 - 11/14 Normal [place] 20.0 /2012 [facility] CHEMISTRY B/C Ratio 4 6 - 25 11/14 LOW [facility] CHEMISTRY Globulin 3.4 g/dL 2.0 - 4.0 11/14 Normal [facility] CHEMISTRY CO2 23 meq/L 24 - 32 11/14 LOW [facility] CHEMISTRY Bili Total 0.4 mg/dL 0.2 - 1.3 11/14 Normal [facility] CHEMISTRY Calcium Lvl 8.5 mg/dL 8.5 - 10.5 11/14 Normal [facility] CHEMISTRY Phosphorus 3.6 mg/dL 2.5 - 4.5 11/14 Normal [facility] CHEMISTRY Magnesium Lvl 1.5 mg/dL 1.8 - 2.4 11/14 LOW [facility] CHEMISTRY Ca Norm mgdL 3.52 mg/dL 4.65 - 11/14 LOW [facility] 5. [facility] CHEMISTRY Ca Ion mgdL 3.32 mg/dL 4.65 - 11/14 CRIT [place] 5. [facility] CHEMISTRY Ca Ion 0.83 1.16 - 11/14 CRIT 15Result [place] mMol/L 1. Comment: [facility] Critical Center Result(s) called to Arlin Rose at 11/14/2012 00:23:56 CDT_ by_tvs. Read back OK. CHEMISTRY Ca Norm 0.88 1.16 - 11/14 CRIT [place] mMol/L 1. Medical [place] HEMATOLOGY Platelet 221 K/CMM 133 - 450 11/14 Normal [facility] HEMATOLOGY RDW 19.0 % 11.5 - 03 HI [place] 14.5 /2012 Medical Center HEMATOLOGY MCHC 32.4 g/dL 32.0 - 11/14 Normal [place] 36.0 Medical Center HEMATOLOGY MCV 75.5 fL 81.0 - 11/14 [facility] [place] 99.0 /2012 [facility] HEMATOLOGY Hct 35.5 % 36.0 - 11/14 LOW [place] 48.0 /2012 [facility] HEMATOLOGY Hgb 11.5 g/dL 12.0 - 11/14 LOW [place] 16.0 Medical Center HEMATOLOGY MCH 24.5 pg 27.0 - 11/14 [facility] [place] 31.0 /2012 Medical Center HEMATOLOGY MPV 9.1 fL 7.4 - 10.4 11/14 Normal [facility] HEMATOLOGY RBC 4.70 M/CMM 4.20 - 03 Normal [place] 5.40 /2012 [facility] HEMATOLOGY WBC 8.6 K/CMM 3.7 - 10.4 11/14 Normal [facility] HEMATOLOGY Segs 53.3 % 45.0 - 11/14 Normal [place] 75.0 /2012 [facility] HEMATOLOGY Microcyte 1+ None Seen 11/14 ABN Medical *ABN* Center (11/13/2012 23:45:00) HEMATOLOGY Basophils # 0.1 K/CMM 0.0 - 0.2 11/14 Normal [facility] HEMATOLOGY Eosinophils # 0.2 K/CMM 0.0 - 0.5 11/14 Normal [facility] HEMATOLOGY Monocytes # 0.9 K/CMM 0.0 - 0.8 11/14 HI [facility] HEMATOLOGY Lymphocytes # 2.9 K/CMM 1.0 - 5.5 11/14 Normal [facility] HEMATOLOGY Monocytes 10.3 % 2.0 - 12.0 11/14 Normal [facility] HEMATOLOGY Lymphocytes 33.6 % 20.0 - 11/14 Normal [place] 40.0 [facility] HEMATOLOGY Segs-Bands # 4.6 K/CMM 1.5 - 8.1 11/14 Normal [facility] HEMATOLOGY Basophils 0.7 % 0.0 - 1.0 11/14 Normal [facility] HEMATOLOGY Eosinophils 2.1 % 0.0 - 4.0 11/14 Normal [facility] CHEMISTRY Lipase Lvl 43 unit/L 73 - 393 11/13 LOW [facility] CHEMISTRY Amylase Lvl 14 unit/L 25 - 115 11/13 LOW [facility] CHEMISTRY A/G Ratio 0.8 0.7 - 1.6 11/13 Normal [facility] CHEMISTRY AST 56 unit/L 0 - 37 11/13 HI [facility] CHEMISTRY Alk Phos 67 unit/L 39 - 136 11/13 Normal [facility] CHEMISTRY Globulin 2.9 g/dL 2.0 - 4.0 11/13 Normal [facility] CHEMISTRY Total Protein 5.3 g/dL 6.4 - 8.4 11/13 LOW [facility] CHEMISTRY Albumin Lvl 2.4 g/dL 3.5 - 5.0 11/13 LOW [facility] CHEMISTRY ALT 41 unit/L 0 - 65 11/13 Normal [facility] CHEMISTRY Bili Indirect 0.3 mg/dL 0.0 - 1.0 11/13 Normal [facility] CHEMISTRY Bili Direct 0.1 mg/dL 0.0 - 0.3 11/13 Normal [facility] CHEMISTRY Bili Total 0.4 mg/dL 0.2 - 1.3 11/13 Normal [facility] CHEMISTRY eGFR 137 11/13 NA 7Result Comment: The eGFR is calculated using the CKD-EPI formula. In most young, healthy individuals the eGFR will be > 90 mL/min/1.73m2. The eGFR declines with age. An eGFR of 60-89 may be normal in [facility] mL/min/1. some populations, particularly the elderly, for whom the CKD-EPI formula has not been extensively validated. Use of the eGFR is not recommended in the following populations: [address] Individuals with unstable creatinine concentrations, including [...] AGAP 17.3 meq/L 10.0 - 11/13 Normal [facility] 20.0 [facility] CHEMISTRY Calcium Lvl 6.7 mg/dL 8.5 - 10.5 11/13 CRIT 13Result Comment: [facility] Result(s) called to _hansel gustafson at _11/13/2012 06:59:47 CDT bylg. Read back OK. CHEMISTRY CO2 17 meq/L 24 - 32 11/13 LOW [facility] CHEMISTRY Chloride Lvl 111 meq/L 95 - 109 11/13 HI [facility] CHEMISTRY Potassium Lvl 3.3 meq/L 3.5 - 5.1 11/13 LOW 5Result Comment: [facility] Slightly Hemolyzed. CHEMISTRY Sodium Lvl 142 meq/L 135 - 145 11/13 Normal [facility] CHEMISTRY Creatinine 0.3 mg/dL 0.5 - 1.4 11/13 LOW [facility] l /2012 [facility] CHEMISTRY BUN 3 mg/dL 7 - 22 11/13 [facility] CHEMISTRY Glucose Lvl 104 mg/dL 70 - 99 11/13 HI 10Interpretive Data: Adult reference range values reflect the clinical guidelines of the [place] [employer]. [facility] CHEMISTRY Magnesium Lvl 1.3 mg/dL 1.8 - 2.4 11/13 LOW [facility] CHEMISTRY Phosphorus 2.8 mg/dL 2.5 - 4.5 11/13 Normal [facility] CHEMISTRY Ca Ion 1.01 1.16 - 11/13 [facility] [place] mMol/L 1. [facility] CHEMISTRY Ca Norm 1.07 1.16 - 11/13 [facility] mMol/L 1. [facility] CHEMISTRY Ca Norm mgdL 4.28 mg/dL 4.65 - 11/13 [facility] 5. [facility] CHEMISTRY Ca Ion mgdL 4.04 mg/dL 4.65 - 11/13 [facility] 5.20 Medical Center HEMATOLOGY MCV 78.6 fL 81.0 - 11/13 [facility] 99.0 /2012 [facility] HEMATOLOGY MPV 9.1 fL 7.4 - 10.4 11/13 Normal [facility] HEMATOLOGY MCHC 31.1 g/dL 32.0 - 11/13 [facility] [place] 36.0 /2012 [facility] HEMATOLOGY MCH 24.4 pg 27.0 - 11/13 [facility] 31.0 [facility] HEMATOLOGY Hct 29.4 % 36.0 - 03 [facility] [place] 48.0 /2012 [facility] Center HEMATOLOGY RDW 19.1 % 11.5 - 03 [facility] [place] 14.5 [facility] HEMATOLOGY Platelet 192 K/CMM 133 - 450 11/13 Normal [facility] HEMATOLOGY Hgb 9.1 g/dL 12.0 - 03 [facility] [place] 16.0 /2012 [facility] HEMATOLOGY RBC 3.74 M/CMM 4.20 - 03 [facility] [place] 5.40 /2012 Medical Center HEMATOLOGY WBC 6.8 K/CMM 3.7 - 10.4 11/13 Normal [facility] HEMATOLOGY Plt Morph Normal 11/13 Normal Medical (11/13/2012 05:00:00) Center HEMATOLOGY Atypical 0.0 % <=0.0 11/13 Normal [facility] Lymph [facility] HEMATOLOGY RBC Morph Normal 11/13 Normal [facility] (11/13/2012 05:00:00) [place] HEMATOLOGY Eosinophils 2.0 % 0.0 - 4.0 11/13 Normal [facility] HEMATOLOGY Bands 0.0 % 0.0 - 11.0 11/13 Normal [facility] HEMATOLOGY Segs 51.0 % 45.0 - 11/13 Normal [facility] 75.0 [facility] HEMATOLOGY Eosinophils # 0.1 K/CMM 0.0 - 0.5 11/13 Normal [facility] HEMATOLOGY Segs-Bands # 3.5 K/CMM 1.5 - 8.1 11/13 Normal [facility] HEMATOLOGY Monocytes 5.0 % 2.0 - 12.0 11/13 Normal [facility] HEMATOLOGY Lymphocytes 42.0 % 20.0 - 11/13 HI [facility] 40.0 [facility] HEMATOLOGY Monocytes # 0.3 K/CMM 0.0 - 0.8 11/13 Normal [facility] HEMATOLOGY Lymphocytes # 2.9 K/CMM 1.0 - 5.5 11/13 [facility] INFECTIOUS C difficile Negative 1 Negative 11/13 Normal 1Interpretive Data: [employer] illumigene Clostridium difficile assay utilizes loop-mediated isothermal DNA amplification (LAMP) technology to detect a 204 bp region of the tcdA gene within the PaLoc gene [facility] segment present in all known toxigenic C. difficile strains. [facility] (11/12/2012 21:54:26) [place] The assay utilizes FDA cleared IVD reagents. Performance characteristics have been verified by the [facility] within the [facility]. The [facility] is authorized under the Clinical Laboratory Improvement Amendment of 1988 (CLIA-88) to perform high complexity testing. CHEMISTRY Total CK 25 unit/L 12 - 191 11/12 Normal [facility] CHEMISTRY Troponin-I null 0.00 - 11/12 Normal [facility] 0.40 [facility] CHEMISTRY eGFR 88 11/12 NA 8Result Comment: The eGFR is calculated using the CKD-EPI formula. In most young, healthy individuals the eGFR will be > 90 mL/min/1.73m2. The eGFR declines with age. An eGFR of 60-89 may be normal in [facility] mL/min/1. some populations, particularly the elderly, for whom the CKD-EPI formula has not been extensively validated. Use of the eGFR is not recommended in the following populations: Medical [facility] Individuals with unstable creatinine concentrations, including [...] AGAP 13.7 meq/L 10.0 - 11/12 Normal [facility] 20.0 [facility] CHEMISTRY Calcium Lvl 8.5 mg/dL 8.5 - 10.5 11/12 Normal [facility] CHEMISTRY CO2 25 meq/L 24 - 32 11/12 Normal [facility] CHEMISTRY Potassium Lvl 3.7 meq/L 3.5 - 5.1 11/12 Normal [facility] CHEMISTRY Sodium Lvl 138 meq/L 135 - 145 11/12 Normal [facility] CHEMISTRY Chloride Lvl 103 meq/L 95 - 109 11/12 Normal [facility] CHEMISTRY Creatinine 0.8 mg/dL 0.5 - 1.4 11/12 Normal [facility] CHEMISTRY BUN 5 mg/dL 7 - 22 11/12 LOW [facility] CHEMISTRY Glucose Lvl 40 mg/dL 70 - 99 11/12 CRIT 12Interpretive Data: Adult reference range values reflect the clinical guidelines of the [place] [employer]. [facility] CHEMISTRY Ca Norm mgdL 4.20 mg/dL 4.65 - 11/12 [facility] 01.23 [facility] CHEMISTRY Ca Norm 1.05 1.16 - 11/12 LOW [place] mMol/L 1. [facility] CHEMISTRY Ca Ion mgdL 4.00 mg/dL 4.65 - 11/12 LOW [facility] 01.23 [facility] CHEMISTRY Ca Ion 1.00 1.16 - 11/12 LOW [facility] mMol/L 1.30 [facility] CHEMISTRY Magnesium Lvl 1.9 mg/dL 1.8 - 2.4 11/12 Normal [facility] CHEMISTRY Phosphorus 3.2 mg/dL 2.5 - 4.5 11/12 Normal [facility] HEMATOLOGY MCHC 32.0 g/dL 32.0 - 11/12 Normal [place] 36.0 /2012 [facility] HEMATOLOGY MCH 24.1 pg 27.0 - 11/12 LOW [place] 31.0 [facility] HEMATOLOGY MCV 75.3 fL 81.0 - 11/12 LOW [facility] 99.0 /2012 [facility] HEMATOLOGY WBC 9.2 K/CMM 3.7 - 10.4 11/12 Normal [facility] HEMATOLOGY Platelet 233 K/CMM 133 - 450 11/12 Normal [facility] HEMATOLOGY MPV 9.1 fL 7.4 - 10.4 11/12 Normal [facility] HEMATOLOGY RDW 19.0 % 11.5 - 11/12 HI [place] 14.5 [facility] HEMATOLOGY RBC 4.19 M/CMM 4.20 - 11/12 [facility] 5.40 /2012 [facility] HEMATOLOGY Hgb 10.1 g/dL 12.0 - 11/12 LOW [facility] 16.0 [facility] HEMATOLOGY Hct 31.6 % 36.0 - 11/12 [facility] 48.0 /2012 [facility] HEMATOLOGY Hypochrom Slight None Seen 11/12 Normal [facility] (11/12/2012 00:19:00) Center HEMATOLOGY Large Plt Slight None Seen 11/12 ABN Medical *ABN* Center (11/12/2012 00:19:00) HEMATOLOGY Atypical 0.0 % <=0.0 11/12 Normal [facility] Lymphs [facility] HEMATOLOGY Basophils 1.0 % 0.0 - 1.0 11/12 Normal [facility] HEMATOLOGY Lymphocytes 39.0 % 20.0 - 11/12 Normal [facility] 40.0 [facility] HEMATOLOGY Bands 0.0 % 0.0 - 11.0 11/12 Normal [facility] HEMATOLOGY Eosinophils 2.0 % 0.0 - 4.0 11/12 Normal [facility] HEMATOLOGY Monocytes 6.0 % 2.0 - 12.0 11/12 Normal [facility] HEMATOLOGY Segs 52.0 % 45.0 - 11/12 Normal [place] 75.0 [facility] HEMATOLOGY Basophils # 0.1 K/CMM 0.0 - 0.2 11/12 Normal [facility]2012 [facility] HEMATOLOGY Monocytes # 0.6 K/CMM 0.0 - 0.8 11/12 Normal [facility]2012 [facility] HEMATOLOGY Lymphocytes # 3.6 K/CMM 1.0 - 5.5 11/12 Normal [facility] HEMATOLOGY Segs-Bands # 4.8 K/CMM 1.5 - 8.1 11/12 Normal [facility] HEMATOLOGY Eosinophils # 0.2 K/CMM 0.0 - 0.5 11/12 Normal [facility] HEMATOLOGY Microcyte 1+ None Seen 11/11 [facility] [place] (11/11/2012 03:41:00) HEMATOLOGY Basophils # 0.1 K/CMM 0.0 - 0.2 11/11 Normal [facility] HEMATOLOGY Basophils 0.7 % 0.0 - 1.0 11/11 Normal [facility] HEMATOLOGY Microcyte 1+ None Seen 11/09 [facility] [place] (11/09/2012 05:12:00) URINALYSIS UA pH 5.0 5.0 - 8.0 11/08 Normal 2012 [facility] URINALYSIS UA Protein 20 mg/dL Negative 11/08 [facility] [place] (11/07/2012 20:54:00) URINALYSIS UA Turbidity Slight Clear 11/08 [facility] [place] (11/07/2012 20:54:00) URINALYSIS UA Spec Grav 1.010 <=1.030 11/08 Normal [facility] URINALYSIS UA Color Yellow Yellow 11/08 [facility] [place] (11/07/2012 20:54:00) URINALYSIS UA Bacteria Moderate /HPF None Seen 11/08 [facility] [place] (11/07/2012 20:54:00) URINALYSIS UA Mucus Few /LPF None Seen 11/08 [facility] [place] (11/07/2012 20:54:00) URINALYSIS UA WBC null 0 - 5 11/08 [facility] URINALYSIS UA RBC 4 /HPF 0 - 2 11/08 [facility] URINALYSIS UA Sq Epi Moderate /LPF Few 11/08 ABN [facility] *ABN* Center (11/07/2012 20:54:00) URINALYSIS UA Leuk Est Large Negative 11/08 [facility] *ABN* Center (11/07/2012 20:54:00) URINALYSIS UA Blood Trace Negative 11/08 [facility] *[facility]* [place] (11/07/2012 20:54:00) URINALYSIS UA Nitrite Negative Negative 11/08 Normal [facility] (11/07/2012 20:54:00) Center URINALYSIS UA Ketones 40 mg/dL Negative 11/08 [facility] [place] (11/07/2012 20:54:00) URINALYSIS UA Bili Negative Negative 11/08 [facility] *NA* Center (11/07/2012 20:54:00) URINALYSIS Micro? Performed 11/08 NA [facility] (11/07/2012 20:54:00) URINALYSIS UA <=1.0 0.1 - 1.0 11/08 [facility] Urobilinogen mg/dL Medical
*NA*< Center br/>(11/07 20:54:00) <sup> </sup> URINALYSIS UA Glucose >=1000mg/d 11/08 NA [facility] URINALYSIS UA Hyal Cast 37 /LPF 0 - 2 11/08 [facility] URINALYSIS UA Ketones 40 mg/dL Negative 11/07 [facility] *ABN* Center (11/07/2012 06:24:57) CHEMISTRY Hgb A1C 8.2 % 11/07 NA 14Interpretive Data: HbA1C% eAG( mg/dL) Interpretation 6.0 126 Very good control Medical 6.5 [...] to lower CHEMISTRY Ketone 2.20 <=0.27 11/06 [facility] [place] Quantitative mmol/L /2012 Medical [place] CHEMISTRY U Osmolality 207 300 - 800 11/06 LOW [place] mOsm/kg Medical [place] CHEMISTRY POC A %FIO2 21.0 % 18.0 - 11/06 Normal [facility] 100.0 Medical [place] CHEMISTRY POC A LA 0.9 mMol/L 0.5 - 2.2 11/06 Normal [facility] CHEMISTRY POC A Glu 281 mg/dL 70 - 99 11/06 HI [facility] CHEMISTRY POC A Temp 37.0 Abby 11/06 NA [facility] CHEMISTRY POC A Source ART 11/06 NA [facility] CHEMISTRY POC A pH 7.45 7.35 - 11/06 Normal [facility] 7.45 [facility] CHEMISTRY POC A HCO3 24 mMol/L 22 - 26 11/06 Normal [facility] CHEMISTRY POC A PCO2 35 mm[Hg] 35 - 45 11/06 Normal [facility] CHEMISTRY POC A PO2 85 mm[Hg] 80 - 100 11/06 Normal [facility] CHEMISTRY POC A BE 0 mMol/L -2-2 - 2 11/06 Normal [facility] CHEMISTRY POC A O2 Sat 97.0 % 95.0 - 11/06 Normal [facility] 100.0 [facility] CHEMISTRY POC A Na 123 meq/L 135 - 145 11/06 LOW [facility] CHEMISTRY POC A Hct 31.0 % 36.0 - 11/06 [facility] 48.0 [facility] CHEMISTRY POC A Ca Ion 1.11 1.16 - 11/06 [facility] mMol/L 1.30 [facility] CHEMISTRY POC A K 3.7 meq/L 3.5 - 5.1 11/06 Normal [facility] CHEMISTRY POC A BE -4 mMol/L -2-2 - 2 11/06 LOW [facility] CHEMISTRY POC A HCO3 20 mMol/L 22 - 26 11/06 LOW [facility] CHEMISTRY POC A Source ART 11/06 NA [facility] CHEMISTRY POC A Temp 37.0 Abby 11/06 NA [facility] CHEMISTRY POC A pH 7.42 7.35 - 03 Normal [facility] 7.45 /2012 [facility] CHEMISTRY POC A PO2 81 mm[Hg] 80 - 100 11/06 Normal [facility] CHEMISTRY POC A O2 Sat 96.0 % 95.0 - 03 Normal [facility] 100.0 [facility] CHEMISTRY POC A PCO2 31 mm[Hg] 35 - 45 11/06 LOW [facility] CHEMISTRY POC A %FIO2 21.0 % 18.0 - 03 Normal [facility] 100.0 /2012 [facility] Microbiolog Culture: 03 [facility] y Urine /2012 [facility] CHEMISTRY Troponin-I null 0.00 - 11/06 Normal [facility] 0.40 /2012 [facility] CHEMISTRY Troponin-T null 0.000 - 11/06 Normal [facility] 0.100 /2012 [facility] CHEMISTRY Total CK 48 unit/L 12 - 191 11/06 Normal [facility] URINALYSIS UA <=1.0 0.1 - 1.0 11/06 [facility] Urobilinogen mg/dL Medical
*NA*< Center br/>(11/06 03:15:40) <sup> </sup> URINALYSIS UA Leuk Est Large Negative 11/06 [facility] *ABN* Center (11/06/2012 03:15:40) URINALYSIS UA Sq Epi Moderate /LPF Few 11/06 [facility] *ABN* Center (11/06/2012 03:15:40) URINALYSIS UA Mucus Few /LPF None Seen 11/06 [facility] Medical *NA* Center (11/06/2012 03:15:40) URINALYSIS UA Nitrite Negative Negative 11/06 Normal [facility] (11/06/2012 03:15:40) Center URINALYSIS UA Bacteria Occasional /HPF None Seen 11/06 [facility] *NA* Center (11/06/2012 03:15:40) URINALYSIS UA WBC 67 /HPF 0 - 5 11/06 [facility] Center URINALYSIS UA Blood Negative Negative 11/06 Normal [facility] (11/06/2012 03:15:40) Center URINALYSIS UA Bili Negative Negative 11/06 [facility] Medical *NA* Center (11/06/2012 03:15:40) URINALYSIS UA Ketones 60 mg/dL Negative 11/06 [facility] Medical *ABN* Center (11/06/2012 03:15:40) URINALYSIS UA pH 5.0 5.0 - 8.0 11/06 Normal [facility] URINALYSIS UA Glucose >=1000 mg/dL Negative 11/06 [facility] Medical *ABN* Center (11/06/2012 03:15:40) URINALYSIS UA Spec Grav 1.014 <=1.030 11/06 Normal [facility] URINALYSIS UA Protein Negative mg/dL Negative 11/06 Normal [facility] (11/06/2012 03:15:40) Center URINALYSIS UA Turbidity Slight Clear 11/06 ABN Medical *ABN* Center (11/06/2012 03:15:40) URINALYSIS UA Color Yellow Yellow 11/06 NA [facility] *NA* Center (11/06/2012 03:15:40) CHEMISTRY Troponin-I 0.02 ng/mL 0.00 - 11/06 Normal [facility] 0.40 [facility] CHEMISTRY Total CK 30 unit/L 12 - 191 11/06 Normal [facility] CHEMISTRY Troponin-T null 0.000 - 11/06 Normal [facility] 0.100 [facility] CHEMISTRY Ketone 3.00 <=0.27 11/06 [facility] Quantitative mmol/L /2012 [facility] CHEMISTRY Lipase Lvl 89 unit/L 73 - 393 11/06 Normal [facility] CHEMISTRY Globulin 4.3 g/dL 2.0 - 4.0 11/06 HI [facility] CHEMISTRY A/G Ratio 0.9 0.7 - 1.6 11/06 Normal [facility] CHEMISTRY B/C Ratio 7 6 - 25 11/06 Normal [facility] CHEMISTRY Albumin Lvl 3.7 g/dL 3.5 - 5.0 11/06 Normal [facility] CHEMISTRY Total Protein 8.0 g/dL 6.4 - 8.4 11/06 Normal [facility] CHEMISTRY ALT 62 unit/L 0 - 65 11/06 Normal [facility] CHEMISTRY Alk Phos 119 unit/L 39 - 136 11/06 Normal [facility] CHEMISTRY Bili Total 0.5 mg/dL 0.2 - 1.3 11/06 Normal [facility] CHEMISTRY AST 44 unit/L 0 - 37 11/06 HI [facility] [place] HEMATOLOGY Polychrom Slight None Seen 11/06 Normal Medical (11/05/2012 20:40:00) Center HEMATOLOGY Hypochrom Slight None Seen 11/06 Normal Medical (11/05/2012 20:40:00) Center HEMATOLOGY Bands 1.0 % 0.0 - 11.0 11/06 Normal [facility] HEMATOLOGY Anisocyte 1+ None Seen 11/06 ABN Medical *ABN* Center (11/05/2012 20:40:00) HEMATOLOGY Atypical 0.0 % <=0.0 11/06 Normal [facility] HEMATOLOGY Macrocyte 1+ None Seen 11/06 [facility] Medical *ABN* [place] (11/05/2012 20:40:00) HEMATOLOGY Plt Morph Normal 11/06 Normal [facility] (11/05/2012 20:40:00) Center HEMATOLOGY INR 0.98 0.85 - 11/06 Normal 16Interpretive Data: RECOMMENDED RANGES FOR PROTIME INR: [facility] 1. 2.0-3.0 for most medical and surgical thromboembolic states. Medical 2.5-3.5 for artificial heart valves and recurrent embolism. Center INR SHOULD BE USED ONLY FOR PATIENTS ON STABLE ANTICOAGULANT THERAPY. HEMATOLOGY PT 13.2 s 12.0 - 11/06 Normal [facility] 14.7 Medical [place] HEMATOLOGY PTT 26.4 s 22.9 - 11/06 Normal 17Interpretiv [facility] 35.8 e Data: [facility] Heparin Center Therapeutic Range: 57 - 92 Seconds BEDSIDE Gluc POC null - 11/01 CRIT 3Interpretive [facility] GLUCOSE Lifscn Data: Medical TESTING Center Upper Reportable Limit: 200 mg/dL. BEDSIDE Comment1 Notify 11/01 NA [facility] GLUCOSE RN/ /2012 Medical TESTING Center BEDSIDE Gluc POC 237 mg/dL - 10/31 HI 4Interpretive [facility] GLUCOSE Lif[employer]n Data: Medical TESTING Center Upper Reportable Limit: 200 mg/dL. BEDSIDE Gluc POC 357 mg/dL - 10/31 HI 5Interpretive [facility] GLUCOSE Lifscn Data: [facility] Center Upper Reportable Limit: 200 mg/dL. BEDSIDE Comment1 Notify 10/31 NA [facility] GLUCOSE RN/ [facility] Center CHEMISTRY Phosphorus 4.2 mg/dL 2.5 - 4.5 10/31 Normal [facility] CHEMISTRY Ca Norm mgdL 4.64 mg/dL 4.65 - 10/31 LOW [facility] 5. [facility] CHEMISTRY Ca Ion mgdL 4.44 mg/dL 4.65 - 10/31 LOW [facility] 5.20 [facility] CHEMISTRY Ca Norm 1.16 1.16 - 10/31 Normal [place] mMol/L 1. [facility] CHEMISTRY Ca Ion 1.11 1.16 - 10/31 LOW [facility] mMol/L . [facility] CHEMISTRY AGAP 16.9 meq/L 10.0 - 10/31 Normal [facility] 20.0 [facility] CHEMISTRY eGFR 67 10/31 NA 7Result Comment: The eGFR is calculated using the CKD-EPI formula. In most young, healthy individuals the eGFR will be > 90 mL/min/1.73m2. The eGFR declines with age. An eGFR of 60-89 may be normal in [facility] mL/min/1.7 some populations, particularly the elderly, for whom the CKD-EPI formula has not been extensively validated. Use of the eGFR is not recommended in the following populations: [place] [address] Center Individuals with unstable creatinine concentrations, including [...] 1.0 mg/dL 0.5 - 1.4 10/31 Normal [facility] Lvl [facility] Center CHEMISTRY Sodium Lvl 133 meq/L 135 - 145 10/31 LOW [facility] CHEMISTRY Calcium Lvl 8.3 mg/dL 8.5 - 10.5 10/31 LOW [facility] CHEMISTRY Potassium Lvl 3.9 meq/L 3.5 - 5.1 10/31 Normal [facility] CHEMISTRY Chloride Lvl 94 meq/L 95 - 109 10/31 LOW [facility] CHEMISTRY CO2 26 meq/L 24 - 32 10/31 Normal [facility] CHEMISTRY BUN 8 mg/dL 7 - 22 10/31 Normal [facility] CHEMISTRY Glucose Lvl 75 mg/dL 70 - 99 10/31 Normal 10Interpretive Data: Adult reference range values reflect the clinical guidelines of the [place] [employer]. [facility] CHEMISTRY Magnesium Lvl 1.9 mg/dL 1.8 - 2.4 10/31 Normal [facility] HEMATOLOGY MPV 9.4 fL 7.4 - 10.4 10/31 Normal [facility] HEMATOLOGY Hgb 9.7 g/dL 12.0 - 10/31 [facility] 16.0 [facility] HEMATOLOGY RBC 4.06 M/CMM 4.20 - 10/31 [facility] 5.40 [facility] HEMATOLOGY MCV 74.3 fL 81.0 - 10/31 [facility] 99.0 [facility] HEMATOLOGY Hct 30.2 % 36.0 - 10/31 [facility] 48.0 [facility] HEMATOLOGY MCHC 32.2 g/dL 32.0 - 10/31 Normal [facility] 36.0 [facility] HEMATOLOGY MCH 23.9 pg 27.0 - 10/31 [facility] 31.0 [facility] HEMATOLOGY Platelet 199 K/CMM 133 - 450 10/31 Normal [facility] HEMATOLOGY RDW 17.5 % 11.5 - 10/31 [facility] 14.5 [facility] HEMATOLOGY WBC 9.4 K/CMM 3.7 - 10.4 10/31 Normal [facility] HEMATOLOGY Lymphocytes # 2.7 K/CMM 1.0 - 5.5 10/31 Normal [facility] HEMATOLOGY Basophils 0.6 % 0.0 - 1.0 10/31 Normal [facility] HEMATOLOGY Segs-Bands # 5.2 K/CMM 1.5 - 8.1 10/31 [facility] HEMATOLOGY Microcyte 1+ None Seen 10/31 [facility] Medical *ABN* Center (10/31/2012 04:00:00) HEMATOLOGY Monocytes # 1.1 K/CMM 0.0 - 0.8 10/31 [facility] Center HEMATOLOGY Eosinophils # 0.3 K/CMM 0.0 - 0.5 10/31 Normal [facility] HEMATOLOGY Basophils # 0.1 K/CMM 0.0 - 0.2 10/31 Normal [facility] HEMATOLOGY Segs 55.2 % 45.0 - 10/31 Normal [facility] 75.0 [facility] HEMATOLOGY Monocytes 11.8 % 2.0 - 12.0 10/31 Normal [facility] HEMATOLOGY Lymphocytes 28.9 % 20.0 - 10/31 Normal [place] 40.0 [facility] HEMATOLOGY Eosinophils 3.5 % 0.0 - 4.0 10/31 Normal [facility] BEDSIDE Comment1 Notify 10/31 NA [facility] GLUCOSE RN/MD [facility] CHEMISTRY Ca Norm mgdL 4.92 mg/dL 4.65 - 10/30 Normal [facility] 5. [facility] CHEMISTRY Ca Ion mgdL 4.76 mg/dL 4.65 - 10/30 Normal [facility] 5. [facility] CHEMISTRY Ca Norm 1.23 1.16 - 10/30 Normal [facility] mMol/L 1. [facility] CHEMISTRY Ca Ion 1.19 1.16 - 10/30 Normal [facility] mMol/L 1. [facility] CHEMISTRY Phosphorus 3.8 mg/dL 2.5 - 4.5 10/30 Normal [facility] CHEMISTRY Magnesium Lvl 1.9 mg/dL 1.8 - 2.4 10/30 Normal [facility] CHEMISTRY eGFR 88 10/30 NA 8Result Comment: The eGFR is calculated using the CKD-EPI formula. In most young, healthy individuals the eGFR will be > 90 mL/min/1.73m2. The eGFR declines with age. An eGFR of 60-89 may be normal in [facility] mL/min/1.7 /2012 some populations, particularly the elderly, for whom the CKD-EPI formula has not been extensively validated. Use of the eGFR is not recommended in the following populations: [address] Individuals with unstable creatinine concentrations, including [...] values reflect the clinical guidelines of the [place] [employer]. [facility] CHEMISTRY Creatinine 0.8 mg/dL 0.5 - 1.4 10/30 Normal [facility] Lvl [facility] CHEMISTRY BUN 6 mg/dL 7 - 22 10/30 LOW [facility] CHEMISTRY Sodium Lvl 132 meq/L 135 - 145 10/30 LOW [facility] CHEMISTRY Calcium Lvl 8.5 mg/dL 8.5 - 10.5 10/30 Normal [facility] CHEMISTRY CO2 29 meq/L 24 - 32 10/30 Normal [facility] CHEMISTRY Chloride Lvl 92 meq/L 95 - 109 10/30 LOW [facility] CHEMISTRY Potassium Lvl 3.8 meq/L 3.5 - 5.1 10/30 Normal [facility] CHEMISTRY AGAP 14.8 meq/L 10.0 - 10/30 Normal [facility] 20.0 [facility] HEMATOLOGY Platelet 245 K/CMM 133 - 450 10/30 Normal [facility] HEMATOLOGY MPV 9.4 fL 7.4 - 10.4 10/30 Normal [facility] HEMATOLOGY Hct 33.1 % 36.0 - 10/30 [facility] 48.0 [facility] HEMATOLOGY RBC 4.47 M/CMM 4.20 - 10/30 Normal [facility] 5.40 /2012 [facility] [place] HEMATOLOGY WBC 11.0 K/CMM 3.7 - 10.4 10/30 [facility] HEMATOLOGY Hgb 10.6 g/dL 12.0 - 10/30 [facility] 16.0 [facility] HEMATOLOGY MCHC 31.9 g/dL 32.0 - 10/30 LOW [facility] 36.0 [facility] HEMATOLOGY MCV 74.1 fL 81.0 - 10/30 [facility] 99.0 [facility] [place] HEMATOLOGY MCH 23.7 pg 27.0 - 10/30 LOW [facility] 31.0 [facility] HEMATOLOGY RDW 16.9 % 11.5 - 10/30 HI [facility] 14.5 /2012 Medical Center HEMATOLOGY PTT 28.1 s 22.9 - 10/30 Normal 25Interpretiv [facility] 35.8 /2012 e Data: [facility] Therapeutic Range: 57 - 92 Seconds HEMATOLOGY PT 13.7 s 12.0 - 10/30 Normal [facility] 14.7 [facility] HEMATOLOGY INR 1.03 0.85 - 10/30 Normal 22Interpretive Data: RECOMMENDED RANGES FOR PROTIME INR: [facility] 09.22 2.0-3.0 for most medical and surgical thromboembolic states. Medical 2.5-3.5 for artificial heart valves and recurrent embolism. Center INR SHOULD BE USED ONLY FOR PATIENTS ON STABLE ANTICOAGULANT THERAPY. HEMATOLOGY Segs-Bands # 7.5 K/CMM 1.5 - 8.1 10/30 Normal [facility] HEMATOLOGY Basophils 0.4 % 0.0 - 1.0 10/30 Normal [facility] HEMATOLOGY Monocytes # 1.1 K/CMM 0.0 - 0.8 10/30 HI [facility] HEMATOLOGY Lymphocytes # 2.1 K/CMM 1.0 - 5.5 10/30 Normal [facility] HEMATOLOGY Microcyte 1+ None Seen 10/30 ABN [facility] *ABN* Center (10/30/2012 00:20:00) HEMATOLOGY Eosinophils # 0.2 K/CMM 0.0 - 0.5 10/30 Normal [facility] HEMATOLOGY Segs 68.3 % 45.0 - 10/30 Normal [facility] 75.0 [facility] HEMATOLOGY Lymphocytes 18.9 % 20.0 - 10/30 LOW [facility] 40.0 [facility] HEMATOLOGY Monocytes 10.3 % 2.0 - 12.0 10/30 Normal [facility] HEMATOLOGY Eosinophils 2.1 % 0.0 - 4.0 10/30 Normal [facility] CHEMISTRY Magnesium Lvl 2.1 mg/dL 1.8 - 2.4 10/29 Normal [facility] CHEMISTRY Phosphorus 4.1 mg/dL 2.5 - 4.5 10/29 Normal [facility] CHEMISTRY Ca Ion mgdL 3.96 mg/dL 4.65 - 10/29 LOW [facility] 5. [facility] CHEMISTRY Ca Norm 1.01 1.16 - 10/29 LOW [place] mMol/L 1. [facility] CHEMISTRY Ca Ion 0.99 1.16 - 10/29 LOW [facility] mMol/L 1. [facility] CHEMISTRY Ca Norm mgdL 4.04 mg/dL 4.65 - 10/29 LOW [facility] 5.20 [facility] CHEMISTRY eGFR 104 10/29 NA 9Result Comment: The eGFR is calculated using the CKD-EPI formula. In most young, healthy individuals the eGFR will be > 90 mL/min/1.73m2. The eGFR declines with age. An eGFR of 60-89 may be normal in [facility] mL/min/1. some populations, particularly the elderly, for whom the CKD-EPI formula has not been extensively validated. Use of the eGFR is not recommended in the following populations: [address] Individuals with unstable creatinine concentrations, including [...] 0.7 mg/dL 0.5 - 1.4 10/29 Normal [facility] CHEMISTRY BUN 3 mg/dL 7 - 10/29 LOW [facility] CHEMISTRY Calcium Lvl 8.9 mg/dL 8.5 - 10.5 10/29 Normal [facility] CHEMISTRY Glucose Lvl 90 mg/dL 70 - 99 10/29 Normal 12Interpretive Data: Adult reference range values reflect the clinical guidelines of the [place] [employer]. [facility] CHEMISTRY Chloride Lvl 99 meq/L 95 - 109 10/29 Normal [facility] CHEMISTRY Potassium Lvl 4.4 meq/L 3.5 - 5.1 10/29 Normal [facility] CHEMISTRY CO2 27 meq/L 24 - 32 10/29 Normal [facility] CHEMISTRY Sodium Lvl 139 meq/L 135 - 145 10/29 Normal [facility] CHEMISTRY AGAP 17.4 meq/L 10.0 - 10/29 Normal [facility] 20.0 [facility] HEMATOLOGY PTT 23.7 s 22.9 - 10/29 Normal 26Interpretiv [facility] 35.8 e Data: [facility] Therapeutic Range: 57 - 92 Seconds HEMATOLOGY PT 13.4 s 12.0 - 10/29 Normal [facility] 14.7 [facility] HEMATOLOGY INR 1.00 0.85 - 10/29 Normal 23Interpretive Data: RECOMMENDED RANGES FOR PROTIME INR: [facility] 1. 2.0-3.0 for most medical and surgical thromboembolic states. Medical 2.5-3.5 for artificial heart valves and recurrent embolism. Center INR SHOULD BE USED ONLY FOR PATIENTS ON STABLE ANTICOAGULANT THERAPY. HEMATOLOGY RDW 17.1 % 11.5 - 10/29 HI [facility] 14.5 /2012 [facility] HEMATOLOGY MCH 23.8 pg 27.0 - 10/29 LOW [facility] 31.0 /2012 [facility] HEMATOLOGY MCHC 32.2 g/dL 32.0 - 10/29 Normal [facility] 36.0 /2012 [facility] HEMATOLOGY Hct 33.6 % 36.0 - 10/29 [facility] 48.0 /2012 [facility] HEMATOLOGY MCV 74.0 fL 81.0 - 10/29 LOW [facility] 99.0 /2012 [facility] HEMATOLOGY Platelet 233 K/CMM 133 - 450 10/29 Normal [facility] HEMATOLOGY MPV 9.9 fL 7.4 - 10.4 10/29 Normal [facility] HEMATOLOGY RBC 4.54 M/CMM 4.20 - 10/29 [facility] 5.40 /2012 [facility] HEMATOLOGY Hgb 10.8 g/dL 12.0 - 10/29 LOW [facility] 16.0 /2012 [facility] HEMATOLOGY WBC 9.7 K/CMM 3.7 - 10.4 10/29 Normal [facility] HEMATOLOGY Lymphocytes # 2.6 K/CMM 1.0 - 5.5 10/29 Normal [facility] HEMATOLOGY Basophils 0.7 % 0.0 - 1.0 10/29 Normal [facility] HEMATOLOGY Segs-Bands # 6.0 K/CMM 1.5 - 8.1 10/29 Normal [facility] HEMATOLOGY Monocytes # 0.7 K/CMM 0.0 - 0.8 10/29 Normal [facility] HEMATOLOGY Eosinophils # 0.3 K/CMM 0.0 - 0.5 10/29 Normal [facility] HEMATOLOGY Basophils # 0.1 K/CMM 0.0 - 0.2 10/29 Normal [facility] HEMATOLOGY Microcyte 1+ None Seen 10/29 ABN Medical *ABN* Center (10/29/2012 00:56:00) HEMATOLOGY Segs 61.5 % 45.0 - 10/29 Normal [facility] 75.0 [facility] HEMATOLOGY Lymphocytes 26.8 % 20.0 - 10/29 Normal [facility] 40.0 [facility] HEMATOLOGY Monocytes 7.6 % 2.0 - 12.0 10/29 Normal [facility] HEMATOLOGY Eosinophils 3.4 % 0.0 - 4.0 10/29 Normal [facility] CHEMISTRY Amylase Lvl 27 unit/L 25 - 115 10/28 Normal [facility] CHEMISTRY Lipase Lvl 58 unit/L 73 - 393 10/28 LOW [facility] CHEMISTRY Bili Indirect 0.2 mg/dL 0.0 - 1.0 10/28 Normal [facility] CHEMISTRY Globulin 3.4 g/dL 2.0 - 4.0 10/28 Normal [facility] CHEMISTRY A/G Ratio 0.8 0.7 - 1.6 10/28 Normal [facility] CHEMISTRY AST 24 unit/L 0 - 37 10/28 Normal [facility] CHEMISTRY Bili Total 0.3 mg/dL 0.2 - 1.3 10/28 Normal [facility] CHEMISTRY Total Protein 6.2 g/dL 6.4 - 8.4 10/28 LOW [facility] CHEMISTRY ALT 23 unit/L 0 - 65 10/28 Normal [facility] CHEMISTRY Albumin Lvl 2.8 g/dL 3.5 - 5.0 10/28 LOW [facility] CHEMISTRY Alk Phos 85 unit/L 39 - 136 10/28 Normal [facility] CHEMISTRY Bili Direct 0.1 mg/dL 0.0 - 0.3 10/28 Normal [facility] HEMATOLOGY PTT 23.9 s 22.9 - 10/28 Normal 27Interpretiv [facility] 35.8 /2012 e Data: [facility] Therapeutic Range: 57 - 92 Seconds HEMATOLOGY PT 13.5 s 12.0 - 02 Normal [facility] 14.7 [facility] HEMATOLOGY INR 1.01 0.85 - 10/28 Normal 24Interpretive Data: RECOMMENDED RANGES FOR PROTIME INR: [facility] 1.17 2.0-3.0 for most medical and surgical thromboembolic states. Medical 2.5-3.5 for artificial heart valves and recurrent embolism. Center INR SHOULD BE USED ONLY FOR PATIENTS ON STABLE ANTICOAGULANT THERAPY. VIRAL - Influ B Negative 6 Negative 10/28 Normal 6Interpretive [facility] SEROLOGY Data: Due Medical (10/27/2012 18:02:02) to the [...] - Influ A Negative Negative 10/28 Normal [facility] SEROLOGY /2012 Medical (10/27/2012 18:02:02) Center CHEMISTRY Vitamin D, 16 ng/mL 30 - 100 10/25 LOW 13Interpretive Data: Reference range is based on recommendations in the Endocrine [facility] 25-[place], /2012 Society Clinical Practice Guideline (J Clin Endocrinol Metab Medical 2011;[id number]) Center CHEMISTRY Hgb A1C 8.4 % 10/25 NA 21Interpretive Data: HbA1C% eAG( mg/dL) Interpretation 6.0 126 Very good control Medical 6.5 [...] 87 mg/dL 0 - 129 10/25 Normal [facility] CHEMISTRY HDL 35 mg/dL >=35 10/25 Normal [facility] CHEMISTRY Trig 101 mg/dL 0 - 200 10/25 Normal [facility] CHEMISTRY Chol 142 mg/dL 120 - 200 10/25 Normal [facility] CHEMISTRY CHD Risk 4.06 3.90 - 10/25 Normal [facility] 5.80 [facility] CHEMISTRY Troponin-I 5.43 ng/mL 0.00 - 10/25 CRIT 18Result [facility] 0.40 Comment: Medical Critical Center Result(s) called to Jelani Rasmussen at 10/25/2012 00:47:48 STEEL ERECTOR by ISAAC. Read back OK. CHEMISTRY Troponin-T 0.693 0.000 - 10/25 CRIT 15Result [facility] ng/mL 0.100 /2012 Comment: Medical Critical Center Result(s) called to daisy otoole at 10/25/2012 01:18:09 STEEL ERECTOR by tac. Read back OK. HEMATOLOGY Basophils # 0.2 K/CMM 0.0 - 0.2 10/25 Normal [facility] HEMATOLOGY Plt Morph Normal 10/25 Normal Medical (10/25/2012 00:15:00) Center CHEMISTRY ALT 15 unit/L 0 - 65 10/24 Normal [facility] CHEMISTRY Albumin Lvl 2.7 g/dL 3.5 - 5.0 10/24 LOW [facility] CHEMISTRY Bili Total 0.5 mg/dL 0.2 - 1.3 10/24 Normal [facility] CHEMISTRY Alk Phos 83 unit/L 39 - 136 10/24 Normal [facility] CHEMISTRY Bili Direct 0.2 mg/dL 0.0 - 0.3 10/24 Normal [facility] CHEMISTRY Total Protein 5.8 g/dL 6.4 - 8.4 10/24 LOW [facility] CHEMISTRY AST 41 unit/L 0 - 37 10/24 HI [facility] CHEMISTRY Bili Indirect 0.3 mg/dL 0.0 - 1.0 10/24 Normal [facility] CHEMISTRY Globulin 3.1 g/dL 2.0 - 4.0 10/24 Normal [facility] CHEMISTRY A/G Ratio 0.9 0.7 - 1.6 10/24 Normal [facility] CHEMISTRY POC A Mode NC-3LPM 10/24 NA [facility] CHEMISTRY POC A HCO3 19 mMol/L 22 - 26 10/24 LOW [facility] CHEMISTRY POC A O2 Sat 98.0 % 95.0 - 10/24 Normal [facility] 100.0 [facility] CHEMISTRY POC A BE -6 mMol/L -2-2 - 2 10/24 LOW [facility] CHEMISTRY POC A PO2 103 mm[Hg] 80 - 100 10/24 HI [facility] CHEMISTRY POC A pH 7.35 7.35 - 10/24 LOW [facility] 7.45 [facility] CHEMISTRY POC A PCO2 34 mm[Hg] 35 - 45 10/24 LOW [facility] CHEMISTRY POC A Temp 37.0 Abby 10/24 NA [facility] CHEMISTRY POC A Source ART 10/24 NA [facility] CHEMISTRY Troponin-T 0.688 0.000 - 10/24 CRIT 16Result [facility] ng/mL 0.100 Comment: Medical Critical Center Result(s) called to Maribel Bustos at 10/24/2012 13:23:46 STEEL ERECTOR by lwb . Read back OK. CHEMISTRY Troponin-I 7.61 ng/mL 0.00 - 10/24 CRIT 19Result [facility] 0.40 Comment: Medical Critical Center Result(s) called to mariana bustos at _ 10/24/2012 13:37:22 CSTby_lss. Read back OK. CHEMISTRY Total CK 150 unit/L 12 - 10/24 Normal [facility] CHEMISTRY Lactic Acid 0.7 mMol/L 0.5 - 2.2 10/24 Normal [facility] Lvl Medical Center CHEMISTRY CK MB Index 11.0 0.0 - 2.5 10/24 HI [facility] CHEMISTRY CK MB 16.5 ng/mL 0.5 - 3.6 10/24 [facility] CHEMISTRY Troponin-T 0.750 0.000 - 10/24 CRIT 17Result [facility] ng/mL 0.100 Comment: Medical Critical Center Result(s) called to Lyn King at 10/24/2012 09:52:38 STEEL ERECTOR by lwb . Read back OK. CHEMISTRY Troponin-I 7.60 ng/mL 0.00 - 10/24 CRIT 20Result [facility] 0.40 Comment: Medical Critical Center Result(s) called to romero beltre at _10/24/2012 09:50:18 STEEL ERECTOR by_lss. Read back OK. CHEMISTRY Total CK 170 unit/L - 10/24 Normal 14Result Comment: Medical Specimen Center Moderately Hemolyzed. CHEMISTRY CK MB Index 10.5 0.0 - 2.5 10/24 [facility] CHEMISTRY CK MB 17.8 ng/mL 0.5 - 3.6 10/24 [facility] CHEMISTRY Ketone 0.07 <=0.27 10/24 Normal [facility] [place] Quantitative mmol/L [facility] CHEMISTRY Ketone 2.61 <=0.27 10/24 HI [facility] Quantitative mmol/L [facility] CHEMISTRY CK MB 30.9 ng/mL 0.5 - 3.6 10/24 HI [facility] CHEMISTRY CK MB Index 12.2 0.0 - 2.5 10/24 [facility] CHEMISTRY Total CK 254 unit/L 12 - 191 10/24 [facility] CHEMISTRY Lactic Acid 0.6 mMol/L 0.5 - 2.2 10/24 Normal [facility] CHEMISTRY POC V O2 Sat 56.0 % 40.0 - 10/24 Normal [place] 70.0 Medical Center CHEMISTRY POC V HCO3 22 mmol/L 22 - 26 10/24 Normal [facility] CHEMISTRY POC V PO2 32 mm[Hg] 20 - 49 10/24 Normal [facility] CHEMISTRY POC V BE -4 mmol/L -2-2 - 2 10/24 LOW [facility] CHEMISTRY POC V PCO2 41 mm[Hg] 38 - 52 10/24 Normal [facility] CHEMISTRY POC V pH 7.33 7.28 - 10/24 Normal [facility] 7.42 [facility] Center CHEMISTRY POC V Temp 37.0 Abby 10/24 NA [facility] CHEMISTRY POC V Source MARK 10/24 NA [facility] Center CHEMISTRY Ketone 0.93 <=0.27 10/24 HI [facility] Quantitative mmol/L [facility] Microbiolog Culture: 10/24 y Urine [facility] CHEMISTRY Lactic Acid 0.6 mMol/L 0.5 - 2.2 10/23 Normal [facility] Microbiolog Culture: 10/23 y Blood [facility] CHEMISTRY POC A Source ART 10/23 NA [facility] CHEMISTRY POC A PO2 144 mm[Hg] 80 - 100 10/23 [facility] CHEMISTRY POC A Temp 37.0 Abby 10/23 NA [facility] CHEMISTRY POC A pH 7.35 7.35 - 10/23 LOW [place] 7.45 [facility] Center CHEMISTRY POC A Glu 159 mg/dL 70 - 99 10/23 [facility] CHEMISTRY POC A BE -5 mMol/L -2-2 - 2 10/23 LOW [facility] CHEMISTRY POC A O2 Sat 99.0 % 95.0 - 10/23 [facility] 100.0 [facility] CHEMISTRY POC A Hct 35.0 % 36.0 - 10/23 LOW [facility] 48.0 [facility] CHEMISTRY POC A HCO3 20 mMol/L 22 - 26 10/23 LOW [facility] CHEMISTRY POC A PCO2 36 mm[Hg] 35 - 45 10/23 Normal [facility] CHEMISTRY POC A LA 0.6 mMol/L 0.5 - 2.2 10/23 Normal [facility] CHEMISTRY POC A Ca Ion 1.20 1.16 - 10/23 [facility] mMol/L 1.30 [facility] CHEMISTRY POC A Na 133 meq/L 135 - 145 10/23 LOW [facility] CHEMISTRY POC A K 3.8 meq/L 3.5 - 5.1 10/23 Normal [facility] CHEMISTRY A/G Ratio 0.8 0.7 - 1.6 10/23 Normal [facility] CHEMISTRY AST 90 unit/L 0 - 37 10/23 HI [facility] CHEMISTRY Globulin 3.9 g/dL 2.0 - 4.0 10/23 Normal [facility] CHEMISTRY B/C Ratio 16 6 - 25 10/23 Normal [facility] CHEMISTRY Total Protein 7.2 g/dL 6.4 - 8.4 10/23 Normal [facility] CHEMISTRY Bili Total 0.5 mg/dL 0.2 - 1.3 10/23 Normal [facility] CHEMISTRY Albumin Lvl 3.3 g/dL 3.5 - 5.0 10/23 LOW [facility] CHEMISTRY Alk Phos 94 unit/L 39 - 136 10/23 Normal [facility] CHEMISTRY ALT 23 unit/L 0 - 65 10/23 Normal [facility] CHEMISTRY Osmolality 292 280 - 300 10/23 Normal [facility] mOsm/kg [facility] CHEMISTRY Myoglobin 128 ng/mL 25 - 72 10/23 [facility] Microbiolog Culture: 10/23 [facility] y [facility] Screen BACTERIAL - MRSA by PCR Positive 1, 2 10/23 ABN 2Interpretive Data: Interpretive Data: The [employer] Light[employer] MRSA assay is a qualitative test for the direct detection of nasal colonization with methicillin-resistant Staphylococcus aureus (MRSA) to aid [facility] in the prevention and control of MRSA infections in healthcare settings. A positive result does not indicate an infection or require treatment. A negative result does not exclude colonization or infection. Medical *[facility] The polymerase chain reaction (PCR) assay detects a proprietary sequence indicative of the integration of the SCCmec cassette into the Staphylococcus aureus chromosome, indicating the presence of MRSA D (10/23/2012 11:37:00) NA. The assay utilizes FDA cleared IVD reagents. Performance characteristics have been verified by the Molecular [facility] Laboratory within the [facility]. The Molecular Diagnostic Labor atory is authorized under the Clinical Laboratory Improvement Amendment of 1988 (CLIA-88) to perform high complexity testing. CHEMISTRY Osmolality 309 280 - 300 10/23 [facility] mOsm/kg [facility] CHEMISTRY POC A Hct 37.0 % 36.0 - 10/23 Normal [facility] 48.0 [facility] CHEMISTRY POC A Na 129 meq/L 135 - 145 10/23 LOW [facility] CHEMISTRY POC A LA 1.0 mMol/L 0.5 - 2.2 10/23 Normal [facility] CHEMISTRY POC A K 4.5 meq/L 3.5 - 5.1 10/23 Normal [facility] CHEMISTRY POC A Glu null 70 - 99 [facility] CHEMISTRY POC A Ca Ion 1.18 1.16 - 10/23 [facility] mMol/L 1.30 [facility] CHEMISTRY POC A PCO2 30 mm[Hg] 35 - 45 10/23 CRIT [facility] CHEMISTRY POC A PO2 123 mm[Hg] 80 - 100 10/23 [facility] CHEMISTRY POC A Temp 37.0 Abby 10/23 NA [facility] Center CHEMISTRY POC A HCO3 14 mMol/L 22 - 26 10/23 [facility] CHEMISTRY POC A Source ART 10/23 NA [facility] CHEMISTRY POC A pH 7.27 7.35 - 10/23 [facility] 7.45 [facility] CHEMISTRY POC A BE -12 mMol/L -2-2 - 2 10/23 [facility] CHEMISTRY POC A O2 Sat 98.0 % 95.0 - 10/23 Normal [facility] 100.0 [facility] CHEMISTRY Bili Direct 0.4 mg/dL 0.0 - 0.3 10/23 HI [facility] CHEMISTRY Lipase Lvl 54 unit/L 73 - 393 10/23 LOW [facility] CHEMISTRY Amylase Lvl 28 unit/L 25 - 115 10/23 Normal [facility] CHEMISTRY B/C Ratio 10 6 - 25 10/23 Normal [facility] BLOOD BANK Antibody Scrn Negative 10/23 Normal [facility] Medical (10/23/2012 01:00:00) Center BLOOD BANK ABO/Rh A POS 10/23 Unknown [facility] URINALYSIS UA <=1.0 0.1 - 1.0 10/23 NA [facility] Urobilinogen mg/dL Medical
*NA*< Center br/>(10/23 00:01:00) <sup> </sup> URINALYSIS UA Sq Epi Moderate /LPF Few 10/23 ABN Medical *ABN* Center (10/23/2012 00:01:00) URINALYSIS UA Leuk Est Negative Negative 10/23 Normal [facility] (10/23/2012 00:01:00) Center URINALYSIS UA Nitrite Negative Negative 10/23 Normal [facility] (10/23/2012 00:01:00) Center URINALYSIS UA Blood Negative Negative 10/23 Normal [facility] (10/23/2012 00:01:00) Center URINALYSIS UA Glucose >=1000 mg/dL Negative 10/23 ABN Medical *ABN* Center (10/23/2012 00:01:00) URINALYSIS UA Protein 10 mg/dL Negative 10/23 ABN Medical *ABN* Center (10/23/2012 00:01:00) URINALYSIS UA pH 5.0 5.0 - 8.0 10/23 Normal [facility] URINALYSIS UA WBC 1 /HPF 0 - 5 10/23 Normal [facility] URINALYSIS UA Bili Negative Negative 10/23 NA Medical *NA* Center (10/23/2012 00:01:00) URINALYSIS UA Ketones >=150 mg/dL Negative 10/23 ABN Medical *ABN* Center (10/23/2012 00:01:00) URINALYSIS UA Spec Grav 1.015 <=1.030 10/23 Normal [facility] URINALYSIS UA Turbidity Clear Clear 10/23 Normal [facility] (10/23/2012 00:01:00) Center URINALYSIS UA Color Light Yellow Yellow 10/23 NA Medical *NA* Center (10/23/2012 00:01:00) BEDSIDE Gluc POC 265 mg/dL 70 - 99 10/08 HI 1Interpretive [facility] GLUCOSE Lifmd Data: Medical TESTING Center Upper Reportable Limit: 200 mg/dL. BEDSIDE Comment1 Notify 10/08 [facility] GLUCOSE RN/MD [facility] TESTING Center BEDSIDE Comment1 Notify 10/08 [facility] GLUCOSE RN/MD [facility] TESTING Center BEDSIDE Gluc POC 204 mg/dL 70 - 99 10/08 HI 2Interpretive [facility] GLUCOSE Lif[employer] Data: Medical TESTING Center Upper Reportable Limit: 200 mg/dL. CHEMISTRY Phosphorus 2.7 mg/dL 2.5 - 4.5 10/08 Normal [facility] CHEMISTRY Magnesium Lvl 1.6 mg/dL 1.8 - 2.4 10/08 LOW [facility] CHEMISTRY Ca Ion 1.17 1.16 - 02 Normal [facility] mMol/L 1. [facility] CHEMISTRY Ca Norm 1.18 1.16 - 10/08 Normal [facility] mMol/L 1. [facility] CHEMISTRY Ca Ion mgdL 4.68 mg/dL 4.65 - 02 Normal [facility] 5.20 [facility] CHEMISTRY Ca Norm mgdL 4.72 mg/dL 4.65 - 02 Normal [facility] 5.20 [facility] CHEMISTRY AGAP 17.6 meq/L 10.0 - 10/08 Normal [facility] 20.0 [facility] CHEMISTRY eGFR 109 10/08 NA 4Result Comment: The eGFR is calculated using the CKD-EPI formula. In most young, healthy individuals the eGFR will be > 90 mL/min/1.73m2. The eGFR declines with age. An eGFR of 60-89 may be normal in [facility] mL/min/1.7 some populations, particularly the elderly, for whom the CKD-EPI formula has not been extensively validated. Use of the eGFR is not recommended in the following populations: [place] [id number] Center Individuals with unstable creatinine concentrations, including [...] 24 meq/L 24 - 32 10/08 Normal [facility]2012 [facility] CHEMISTRY Calcium Lvl 8.5 mg/dL 8.5 - 10.5 10/08 Normal [facility]2012 [facility] CHEMISTRY Potassium Lvl 3.6 meq/L 3.5 - 5.1 10/08 Normal [facility]2012 [facility] CHEMISTRY Chloride Lvl 96 meq/L 95 - 109 10/[address] CHEMISTRY Creatinine 0.6 mg/dL 0.5 - 1.4 10/08 Normal [facility] /2012 [facility] CHEMISTRY Sodium Lvl 134 meq/L 135 - 145 10/[address] CHEMISTRY Glucose Lvl 129 mg/dL 70 - 99 10/08 [place] 7Interpretive Data: Adult reference range values reflect the clinical guidelines of the [place] [employer]. [facility] CHEMISTRY BUN 4 mg/dL 7 - 22 10/[address] HEMATOLOGY Monocytes # 1.1 K/CMM 0.0 - 0.8 10/[address] HEMATOLOGY Eosinophils # 0.3 K/CMM 0.0 - 0.5 10/[address] HEMATOLOGY Basophils # 0.1 K/CMM 0.0 - 0.2 10/[address] HEMATOLOGY Microcyte 1+ None Seen 10/08 ABN [facility] *ABN* Center (10/08/2012 03:57:00) HEMATOLOGY Segs 55.7 % 45.0 - 02 Normal [facility] 75.0 [facility] HEMATOLOGY Lymphocytes 31.3 % 20.0 - 02/ Normal [facility] 40.0 [facility] HEMATOLOGY Monocytes 10.0 % 2.0 - 12.0 10/08 Normal [facility] HEMATOLOGY Eosinophils 2.5 % 0.0 - 4.0 02/ Normal [facility] HEMATOLOGY Segs-Bands # 6.1 K/CMM 1.5 - 8.1 10/08 Normal [facility] HEMATOLOGY Basophils 0.5 % 0.0 - 1.0 / Normal [facility] HEMATOLOGY Lymphocytes # 3.4 K/CMM 1.0 - 5.5 10/08 Normal [facility] HEMATOLOGY RDW 16.9 % 11.5 - 02 HI [facility] 14.5 /2012 [facility] HEMATOLOGY Platelet 218 K/CMM 133 - 450 02 Normal [facility] HEMATOLOGY WBC 10.9 K/CMM 3.7 - 10.4 10/08 HI [facility] HEMATOLOGY RBC 4.35 M/CMM 4.20 - 10/08 [facility] 5.40 /2012 [facility] HEMATOLOGY MPV 9.7 fL 7.4 - 10.4 10/08 Normal [facility] HEMATOLOGY Hgb 10.4 g/dL 12.0 - 10/08 LOW [facility] 16.0 /2012 [facility] HEMATOLOGY Hct 32.7 % 36.0 - 02 [facility] 48.0 /2012 [facility] HEMATOLOGY MCHC 31.8 g/dL 32.0 - 02 [facility] 36.0 /2012 [facility] HEMATOLOGY MCV 75.2 fL 81.0 - 10/08 [facility] 99.0 /2012 [facility] HEMATOLOGY MCH 23.9 pg 27.0 - 10/08 [facility] 31.0 [facility] BEDSIDE Comment1 Notify 10/08 NA [facility] GLUCOSE RN/MD /2012 Medical TESTING Center BEDSIDE Gluc POC 247 mg/dL 70 - 99 10/08 HI 3Interpretive [facility] GLUCOSE Lifscn Data: Medical TESTING Center Upper Reportable Limit: 200 mg/dL. CHEMISTRY Magnesium Lvl 2.1 mg/dL 1.8 - 2.4 10/07 Normal [facility] CHEMISTRY Ca Norm 1.16 1.16 - 02 [facility] mMol/L 1.30 [facility] CHEMISTRY Ca Ion mgdL 4.72 mg/dL 4.65 - 10/07 [facility] 5. [facility] CHEMISTRY Ca Norm mgdL 4.64 mg/dL 4.65 - 10/07 LOW [facility] 5.20 [facility] CHEMISTRY Ca Ion 1.18 1.16 - 10/07 Normal [facility] mMol/L 1.30 [facility] CHEMISTRY Phosphorus 2.6 mg/dL 2.5 - 4.5 10/07 Normal [facility] CHEMISTRY Calcium Lvl 8.1 mg/dL 8.5 - 10.5 10/07 LOW [facility] CHEMISTRY AGAP 19.4 meq/L 10.0 - 10/07 Normal [facility] 20.0 [facility] CHEMISTRY eGFR 116 10/07 NA 5Result Comment: The eGFR is calculated using the CKD-EPI formula. In most young, healthy individuals the eGFR will be > 90 mL/min/1.73m2. The eGFR declines with age. An eGFR of 60-89 may be normal in [facility] mL/min/1.7 some populations, particularly the elderly, for whom the CKD-EPI formula has not been extensively validated. Use of the eGFR is not recommended in the following populations: [place] [address] Center Individuals with unstable creatinine concentrations, including [...] 6 mg/dL 7 - 22 10/07 LOW [facility] CHEMISTRY Glucose Lvl 99 mg/dL 70 - 99 10/07 Normal 8Interpretive Data: Adult reference range values reflect the clinical guidelines of the [place] [employer]. [facility] CHEMISTRY Creatinine 0.5 mg/dL 0.5 - 1.4 10/07 Normal [facility] Lvl [facility] CHEMISTRY Potassium Lvl 3.4 meq/L 3.5 - 5.1 10/07 LOW [facility] CHEMISTRY Sodium Lvl 135 meq/L 135 - 145 10/07 Normal [facility] CHEMISTRY CO2 24 meq/L 24 - 32 10/07 Normal [facility] CHEMISTRY Chloride Lvl 95 meq/L 95 - 109 10/07 Normal [facility] HEMATOLOGY MCHC 31.8 g/dL 32.0 - 10/07 LOW [facility] 36.0 [facility] HEMATOLOGY MCH 24.1 pg 27.0 - 02 [facility] 31.0 /2012 [facility] HEMATOLOGY MCV 75.7 fL 81.0 - 02 [facility] 99.0 /2012 [facility] HEMATOLOGY Hct 31.0 % 36.0 - 02 [facility] 48.0 /2012 [facility] HEMATOLOGY Hgb 9.9 g/dL 12.0 - 02/ [facility] 16.0 /2012 [facility] HEMATOLOGY MPV 9.1 fL 7.4 - 10.4 02 Normal [facility] HEMATOLOGY Platelet 222 K/CMM 133 - 450 02 Normal [facility] HEMATOLOGY RDW 16.8 % 11.5 - 02 [facility] 14.5 /2012 [facility] HEMATOLOGY RBC 4.10 M/CMM 4.20 - 02 [facility] 5.40 /2012 [facility] HEMATOLOGY WBC 13.8 K/CMM 3.7 - 10.4 02 [facility] HEMATOLOGY Segs-Bands # 9.6 K/CMM 1.5 - 8.1 10/07 [facility] HEMATOLOGY Basophils 0.3 % 0.0 - 1.0 02 Normal [facility] HEMATOLOGY Eosinophils 1.0 % 0.0 - 4.0 10/07 [facility] HEMATOLOGY Microcyte 1+ None Seen 10/07 [facility] *ABN* Center (10/07/2012 03:25:00) HEMATOLOGY Lymphocytes # 2.9 K/CMM 1.0 - 5.5 02 [facility] HEMATOLOGY Eosinophils # 0.1 K/CMM 0.0 - 0.5 02 [facility] HEMATOLOGY Monocytes # 1.2 K/CMM 0.0 - 0.8 02 [facility] HEMATOLOGY Monocytes 8.8 % 2.0 - 12.0 10/07 [facility] HEMATOLOGY Lymphocytes 20.8 % 20.0 - 02 [facility] 40.0 [facility] HEMATOLOGY Segs 69.1 % 45.0 - 02/ Normal [facility] 75.0 [facility] URINALYSIS UA Glucose 500mg/dL 10/06 NA [facility] URINALYSIS UA <=1.0 0.1 - 1.0 10/06 NA [facility] Urobilinogen mg/dL /2012 Medical
*NA*< Center br/>(10/06 11:42:00) <sup> </sup> URINALYSIS Micro? Performed 10/06 NA [facility] *NA* Center (10/06/2012 11:42:00) URINALYSIS UA [place] Yeast Moderate /HPF None Seen 10/06 [facility] *ABN* Center (10/06/2012 11:42:00) URINALYSIS UA RBC 3 /HPF 0 - 2 10/06 HI [facility] URINALYSIS UA Bacteria Many /HPF None Seen 10/06 [facility] *ABN* [place] (10/06/2012 11:42:00) URINALYSIS UA WBC 3 /HPF 0 - 5 10/06 Normal [facility] URINALYSIS UA Leuk Est Negative Negative 10/06 Normal 2012 [facility] (10/06/2012 11:42:00) Center URINALYSIS UA Nitrite Negative Negative 10/06 Normal [facility] (10/06/2012 11:42:00) Center URINALYSIS UA Sq Epi Many /LPF Few 10/06 [facility] *ABN* [place] (10/06/2012 11:42:00) URINALYSIS UA Bili Negative Negative 10/06 [facility] *NA* Center (10/06/2012 11:42:00) URINALYSIS UA Blood Negative Negative 10/06 Normal [facility] (10/06/2012 11:42:00) Center URINALYSIS UA pH 5.5 5.0 - 8.0 10/06 Normal [facility] URINALYSIS UA Protein 20 mg/dL Negative 10/06 [facility] *ABN* Center (10/06/2012 11:42:00) URINALYSIS UA Ketones >=150 mg/dL Negative 10/06 [facility] *ABN* Center (10/06/2012 11:42:00) URINALYSIS UA Color Yellow Yellow 10/06 NA Medical *NA* Center (10/06/2012 11:42:00) URINALYSIS UA Turbidity Slight Clear 10/06 ABN Medical *ABN* Center (10/06/2012 11:42:00) URINALYSIS UA Spec Grav 1.011 <=1.030 10/06 Normal [facility] URINALYSIS UA Mucus Few /LPF None Seen 10/06 [facility] [place] (10/06/2012 11:42:00) Microbiolog Culture: 10/06 [facility] y [facility] CHEMISTRY Phosphorus 2.5 mg/dL 2.5 - 4.5 10/06 Normal [facility] CHEMISTRY Magnesium Lvl 1.5 mg/dL 1.8 - 2.4 10/06 LOW [facility] CHEMISTRY eGFR 76 10/06 NA 6Result Comment: The eGFR is calculated using the CKD-EPI formula. In most young, healthy individuals the eGFR will be > 90 mL/min/1.73m2. The eGFR declines with age. An eGFR of 60-89 may be normal in [facility] mL/min/1. some populations, particularly the elderly, for whom the CKD-EPI formula has not been extensively validated. Use of the eGFR is not recommended in the following populations: [address] Individuals with unstable creatinine concentrations, including [...] 3.9 meq/L 3.5 - 5.1 10/06 Normal [facility] CHEMISTRY Chloride Lvl 97 meq/L 95 - 109 10/06 Normal [facility] CHEMISTRY Calcium Lvl 8.3 mg/dL 8.5 - 10.5 10/06 LOW [facility] CHEMISTRY CO2 22 meq/L 24 - 32 10/06 LOW [facility] CHEMISTRY Glucose Lvl 234 mg/dL 70 - 99 10/06 [place] 9Interpretive Data: Adult reference range values reflect the clinical guidelines of the [place] [employer]. [facility] CHEMISTRY Creatinine 0.9 mg/dL 0.5 - 1.4 10/06 Normal [facility] CHEMISTRY BUN 9 mg/dL 7 - 22 10/06 Normal [facility] CHEMISTRY Sodium Lvl 134 meq/L 135 - 145 10/06 LOW [facility] CHEMISTRY AGAP 18.9 meq/L 10.0 - 10/06 Normal [place] 20.0 [facility] HEMATOLOGY Segs-Bands # 13.3 K/CMM 1.5 - 8.1 10/06 [facility] HEMATOLOGY Basophils 0.2 % 0.0 - 1.0 10/06 Normal [facility] HEMATOLOGY Eosinophils 0.1 % 0.0 - 4.0 10/06 Normal [facility] HEMATOLOGY Monocytes 6.7 % 2.0 - 12.0 10/06 Normal [facility] HEMATOLOGY Segs 81.7 % 45.0 - 10/06 [facility] [place] 75.0 /2012 [facility] HEMATOLOGY Lymphocytes 11.3 % 20.0 - 10/06 [facility] [place] 40.0 /2012 [facility] HEMATOLOGY Microcyte 1+ None Seen 10/06 [facility] Medical *ABN* Center (10/06/2012 04:25:00) HEMATOLOGY Monocytes # 1.1 K/CMM 0.0 - 0.8 10/06 [facility] HEMATOLOGY Lymphocytes # 1.8 K/CMM 1.0 - 5.5 10/06 Normal [facility] HEMATOLOGY RBC 4.28 M/CMM 4.20 - 10/06 [facility] [place] 5.40 /2012 [facility] HEMATOLOGY WBC 16.3 K/CMM 3.7 - 10.4 10/06 [facility] HEMATOLOGY Hgb 10.3 g/dL 12.0 - 10/06 [facility] [place] 16.0 [facility] HEMATOLOGY Hct 32.6 % 36.0 - 10/06 [facility] [place] 48.0 /2012 [facility] HEMATOLOGY MCH 24.0 pg 27.0 - 10/06 LOW [place] 31.0 [facility] HEMATOLOGY MCV 76.1 fL 81.0 - 10/06 [facility] [place] 99.0 /2012 [facility] HEMATOLOGY MCHC 31.5 g/dL 32.0 - 10/06 [facility] [place] 36.0 [facility] HEMATOLOGY RDW 17.2 % 11.5 - 10/06 [facility] [place] 14.5 [facility] HEMATOLOGY Platelet 248 K/CMM 133 - 450 10/06 Normal [facility] HEMATOLOGY MPV 9.5 fL 7.4 - 10.4 10/06 Normal [facility] CHEMISTRY Ca Norm 1.07 1.16 - 10/05 LOW [facility] mMol/L 1. [facility] CHEMISTRY Ca Ion mgdL 4.36 mg/dL 4.65 - 10/05 LOW [facility] 5. [facility] CHEMISTRY Ca Norm mgdL 4.28 mg/dL 4.65 - 10/05 LOW [facility] 5. [facility] CHEMISTRY Ca Ion 1.09 1.16 - 10/05 LOW [facility] mMol/L 1. [facility] HEMATOLOGY Basophils # 0.1 K/CMM 0.0 - 0.2 10/05 Normal [facility] HEMATOLOGY Eosinophils # 0.1 K/CMM 0.0 - 0.5 10/05 Normal [facility] CHEMISTRY U Preg Negative Negative 10/03 Normal [facility] (10/03/2012 06:31:00) [place] BLOOD BANK ABO/Rh A POS 10/03 Unknown [facility] BLOOD BANK Antibody Scrn Negative 10/03 Normal [facility] Medical (10/03/2012 06:00:00) Center CHEMISTRY Total Protein 7.8 g/dL 6.4 - 8.4 09/23 Normal [facility] CHEMISTRY AST 31 unit/L 0 - 37 09/23 Normal [facility] CHEMISTRY Bili Total 0.3 mg/dL 0.2 - 1.3 09/23 Normal [facility] CHEMISTRY ALT 50 unit/L 0 - 65 09/23 Normal [facility] CHEMISTRY Albumin Lvl 3.6 g/dL 3.5 - 5.0 09/23 Normal [facility] CHEMISTRY Alk Phos 150 unit/L 39 - 136 09/23 [facility] CHEMISTRY B/C Ratio 21 6 - 25 09/23 Normal [facility] CHEMISTRY Globulin 4.2 g/dL 2.0 - 4.0 09/23 [facility] CHEMISTRY A/G Ratio 0.9 0.7 - 1.6 09/23 Normal [facility] HEMATOLOGY Hypochrom Slight None Seen 09/23 Normal Medical (09/23/2012 12:35:00) Center HEMATOLOGY Elliptocyte Slight None Seen 09/23 ABN Medical *ABN* Center (09/23/2012 12:35:00) HEMATOLOGY Basophils # 0.1 K/CMM 0.0 - 0.2 09/23 Normal [facility] HEMATOLOGY Plt Morph Normal 09/23 Normal [facility] (09/23/2012 12:35:00) Center URINALYSIS UA <=1.0 0.1 - 1.0 09/23 NA [facility] Urobilinogen mg/dL Medical
*NA*< Center br/>(09/23 12:35:00) <sup> </sup> URINALYSIS UA Nitrite Negative Negative 09/23 Normal [facility] (09/23/2012 12:35:00) [place] URINALYSIS UA Blood Negative Negative 09/23 Normal [facility] (09/23/2012 12:35:00) Center URINALYSIS UA Leuk Est Negative Negative 09/23 Normal [facility] (09/23/2012 12:35:00) Center URINALYSIS Micro? Not Indicated 09/23 [facility] *NA* [place] (09/23/2012 12:35:00) URINALYSIS UA Ketones Negative mg/dL Negative 09/23 [facility] *NA* [place] (09/23/2012 12:35:00) URINALYSIS UA Bili Negative Negative 09/23 [facility] *NA* [place] (09/23/2012 12:35:00) URINALYSIS UA Protein Negative mg/dL Negative 09/23 Normal [facility] (09/23/2012 12:35:00) Center URINALYSIS UA pH 5.0 5.0 - 8.0 09/23 Normal [facility] Center URINALYSIS UA Glucose Negative mg/dL Negative 09/23 [facility] *NA* [place] (09/23/2012 12:35:00) URINALYSIS UA Color Light Yellow Yellow 09/23 NA Medical *NA* [place] (09/23/2012 12:35:00) URINALYSIS UA Spec Grav 1.004 <=1.030 09/23 Normal [facility] URINALYSIS UA Turbidity Clear Clear 01/18 Normal Medical (09/23/2012 12:35:00) Center BEDSIDE Gluc POC 153 mg/dL 70 - 99 06/28 HI 1Interpretive [facility] GLUCOSE Lifsc Data: Medical TESTING Center Upper Reportable Limit: 200 mg/dL. CHEMISTRY U Preg Negative Negative 06/28 Normal Medical (06/28/2012 07:27:00) Center Vital Signs Vital Sign Value Date Comments Source Systolic (mm Hg) 124 08/13/2013 [facility] Respitory Rate 18 08/13/2013 [facility] Temperature Oral (F) 98.8 F 08/13/2013 [facility] Heart Rate 102 08/13/2013 [facility] Diastolic (mm Hg) 46 08/13/2013 [facility] Systolic (mm Hg) 107 08/13/2013 [facility] Respitory Rate 18 08/13/2013 [facility] Diastolic (mm Hg) 63 08/13/2013 [facility] Heart Rate 103 08/13/2013 [facility] Heart Rate 105 08/13/2013 [facility] Respitory Rate 18 08/13/2013 [facility] Systolic (mm Hg) 117 08/13/2013 [facility] Diastolic (mm Hg) 70 08/13/2013 [facility] Weight 81.818 08/13/2013 [facility] Height 162.56 cm 08/13/2013 [facility] Temperature Oral (F) 98.4 F 08/13/2013 [facility] Diastolic (mm Hg) 61 07/15/2013 [facility] Temperature Oral (F) 97.7 F 07/15/2013 [facility] Systolic (mm Hg) 117 07/15/2013 [facility] Respitory Rate 18 07/15/2013 [facility] Heart Rate 90 07/15/2013 [facility] Respitory Rate 18 07/14/2013 [facility] Heart Rate 104 07/14/2013 [facility] Diastolic (mm Hg) 46 07/14/2013 [facility] Systolic (mm Hg) 91 07/14/2013 [facility] Diastolic (mm Hg) 61 07/14/2013 [facility] Systolic (mm Hg) 95 07/14/2013 [facility] Respitory Rate 18 07/14/2013 [facility] Heart Rate 120 07/14/2013 [facility] Temperature Oral (F) 97.5 F 07/14/2013 [facility] [facility] Temperature Oral (F) 97.6 F 07/14/2013 [facility] Height 162.56 cm 07/12/2013 [facility] Weight 86.364 07/12/2013 [facility] Temperature Oral (F) 97.1 F 04/03/2013 [facility] Respitory Rate 18 04/03/2013 [facility] Heart Rate 79 04/03/2013 [facility] Diastolic (mm Hg) 66 04/03/2013 [facility] Systolic (mm Hg) 94 04/03/2013 [facility] Diastolic (mm Hg) 28 04/03/2013 [facility] Systolic (mm Hg) 116 04/03/2013 [facility] Respitory Rate 20 04/03/2013 [facility] Heart Rate 100 04/03/2013 [facility] Temperature Oral (F) 97.0 F 04/03/2013 [facility] Height 162.56 cm 04/03/2013 [facility] Weight 90 04/03/2013 [facility] Height 162.56 cm 04/02/2013 [facility] Weight 90 04/02/2013 [facility] Systolic (mm Hg) 132 03/09/2013 [facility] Diastolic (mm Hg) 72 03/09/2013 [facility] Heart Rate 114 03/09/2013 [facility] Temperature Oral (F) 97.7 F 03/09/2013 [facility] Respitory Rate 20 03/09/2013 [facility] Temperature Oral (F) 97.7 F 03/09/2013 [facility] Heart Rate 108 03/09/2013 [facility] Systolic (mm Hg) 143 03/09/2013 [facility] Respitory Rate 18 03/09/2013 [facility] Diastolic (mm Hg) 81 03/09/2013 [facility] Heart Rate 115 03/09/2013 [facility] Diastolic (mm Hg) 70 03/09/2013 [facility] Systolic (mm Hg) 153 03/09/2013 [facility] Respitory Rate 18 03/09/2013 [facility] Temperature Oral (F) 97.5 F 03/09/2013 [facility] Weight 90 03/07/2013 [facility] Height 162.56 cm 03/07/2013 [facility] Height 162.56 cm 03/06/2013 [facility] Weight 90 03/06/2013 [facility] Systolic (mm Hg) 127 12/07/2012 [facility] Diastolic (mm Hg) 49 12/07/2012 [facility] Heart Rate 90 12/07/2012 [facility] Temperature Oral (F) 98.3 F 12/07/2012 [facility] Respitory Rate 18 12/07/2012 [facility] Systolic (mm Hg) 104 12/07/2012 [facility] Temperature Oral (F) 98.6 F 12/07/2012 [facility] Respitory Rate 18 12/07/2012 [facility] Heart Rate 78 12/07/2012 [facility] Diastolic (mm Hg) 57 12/07/2012 [facility] Heart Rate 89 12/07/2012 [facility] Temperature Oral (F) 97.6 F 12/07/2012 [facility] Respitory Rate 18 12/07/2012 [facility] Systolic (mm Hg) 105 12/07/2012 [facility] Diastolic (mm Hg) 51 12/07/2012 [facility] Weight 100 11/29/2012 [facility] Height 162.56 cm 11/29/2012 [facility] Weight 100.568 11/29/2012 [facility] Height 162.56 cm 11/29/2012 [facility] Weight 101.364 11/28/2012 [facility] Height 162.56 cm 11/28/2012 [facility] Diastolic (mm Hg) 55 11/17/2012 [facility] Systolic (mm Hg) 117 11/17/2012 [facility] Diastolic (mm Hg) 70 11/17/2012 [facility] Systolic (mm Hg) 118 11/17/2012 [facility] Diastolic (mm Hg) 61 11/17/2012 [facility] Systolic (mm Hg) 154 11/17/2012 [facility] Temperature Oral (F) 97.8 F 11/17/2012 [facility] Temperature Oral (F) 97.9 F 11/17/2012 [facility] Temperature Oral (F) 98.6 F 11/17/2012 [facility] Height 162.56 cm 11/17/2012 [facility] Weight 103.21 11/17/2012 [facility] Respitory Rate 18 11/17/2012 [facility] Height 162.56 cm 11/16/2012 [facility] Weight 100 11/16/2012 [facility] Diastolic (mm Hg) 58 11/14/2012 [facility] Systolic (mm Hg) 121 11/14/2012 [facility] Respitory Rate 20 11/14/2012 [facility] Heart Rate 84 11/14/2012 [facility] Temperature Oral (F) 98.0 F 11/14/2012 [facility] Respitory Rate 20 11/14/2012 [facility] Systolic (mm Hg) 103 11/14/2012 [facility] Diastolic (mm Hg) 54 11/14/2012 [facility] Temperature Oral (F) 98.0 F 11/14/2012 [facility] Heart Rate 83 11/14/2012 [facility] Diastolic (mm Hg) 68 11/14/2012 [facility] Respitory Rate 20 11/14/2012 [facility] Heart Rate 79 11/14/2012 [facility] Systolic (mm Hg) 136 11/14/2012 [facility] Temperature Oral (F) 98.4 F 11/14/2012 [facility] Height 162.56 cm 11/06/2012 [facility] Weight 100 11/06/2012 [facility] Height 162.56 cm 11/06/2012 [facility] Weight 100 11/06/2012 [facility] Height 162.56 cm 11/06/2012 [facility] Weight 104.545 11/06/2012 [facility] Systolic (mm Hg) 131 11/01/2012 [facility] Diastolic (mm Hg) 62 11/01/2012 [facility] Systolic (mm Hg) 125 11/01/2012 [facility] Diastolic (mm Hg) 62 11/01/2012 [facility] Systolic (mm Hg) 155 10/31/2012 [facility] Diastolic (mm Hg) 54 10/31/2012 [facility] Temperature Oral (F) 99.7 F 10/31/2012 [facility] Temperature Oral (F) 96.7 F 10/31/2012 [facility] Temperature Oral (F) 98.1 F 10/31/2012 [facility] Respitory Rate 19 10/31/2012 [facility] Respitory Rate 19 10/31/2012 [facility] Respitory Rate 19 10/31/2012 [facility] Weight 78.2 10/24/2012 [facility] Heart Rate 126 10/23/2012 [facility] Heart Rate 130 10/23/2012 [facility] Weight 113.636 10/23/2012 [facility] Height 162.56 cm 10/23/2012 [facility] Heart Rate 119 10/23/2012 [facility] Height 162.56 cm 10/23/2012 [facility] Systolic (mm Hg) 123 10/08/2012 [facility] Respitory Rate 19 10/08/2012 [facility] Diastolic (mm Hg) 51 10/08/2012 [facility] Heart Rate 81 10/08/2012 [facility] Temperature Oral (F) 98.8 F 10/08/2012 [facility] Diastolic (mm Hg) 55 10/08/2012 [facility] Respitory Rate 20 10/08/2012 [facility] Systolic (mm Hg) 136 10/08/2012 [facility] Heart Rate 82 10/08/2012 [facility] Temperature Oral (F) 98.9 F 10/08/2012 [facility] Diastolic (mm Hg) 47 10/08/2012 [facility] Systolic (mm Hg) 107 10/08/2012 [facility] Temperature Oral (F) 98.1 F 10/08/2012 [facility] Respitory Rate 18 10/08/2012 [facility] Heart Rate 75 10/08/2012 [facility] Weight 118.200 10/03/2012 [facility] Height 162.56 cm 10/03/2012 [facility] Weight 118.182 09/23/2012 [facility] Height 162.56 cm 09/23/2012 [facility] Diastolic (mm Hg) 57 06/28/2012 [facility] Heart Rate 104 06/28/2012 [facility] Respitory Rate 18 06/28/2012 [facility] Systolic (mm Hg) 147 06/28/2012 [facility] Systolic (mm Hg) 153 06/28/2012 [facility] Diastolic (mm Hg) 61 06/28/2012 [facility] Respitory Rate 16 06/28/2012 [facility] Systolic (mm Hg) 136 06/28/2012 [facility] Diastolic (mm Hg) 52 06/28/2012 [facility] Respitory Rate 18 06/28/2012 [facility] Temperature Oral (F) 98.5 F 06/28/2012 [facility] Heart Rate 104 06/28/2012 [facility] Weight 118.182 06/14/2012 [facility] Height 162.56 cm 06/14/2012 [facility] Encounters Location Location Encounter Encounter Reason Attending ADM DC Status Source Details Type Number For Visit Provider Date Date [facility] DS [id number] DSU/ WOLFGANG 06/28 Active [facility] REFLUX SUSHILA /2011 [facility] Inpatient [id number] WOLFGANG 10/03 10/08 Active [facility] SUSHILA /2012 [facility] Inpatient [id number] N/V DARELL 10/23 11/01 Active [facility] DEHYDRATI SDRINGOLA- /2012 [facility] Inpatient [id number] LAVONE 11/05 11/14 Active [facility] ROSE /2012 [facility] OU [id number] CHIP 11/16 11/17 Active [facility] MARKUS /2012 [facility] Inpatient [id number] JUAN J 11/29 12/07 Active [facility] BRANDO /2012 [facility] OU [id number] SANJUANA 03/07 03/09 Active [facility] OSUAGWU /2012 [facility] OU [id number] JEANNIE 04/02 04/03 Active [facility] ADOLFO /2012 [facility] OU [id number] GASTROPAR JEANNIE 07/12 07/14 Active [facility] ESIS ADOLFO /2012 [facility] AJCKIE [id number] WOLFGANG 07/26 07/27 Active [facility] SUSHILA /2012 [facility] Emergency [id number] KATELYN 08/13 08/13 Active [facility] BUBLEWICZ /2012 [facility] Outpatient [id number] SERGO WHITFIELD [facility] Procedures Procedure Code Date Perfomer Comments Source section [id number] [facility] Cholecystectomy [id number] [facility] <sup>1</sup> [facility] Hand repair [id number] 14659, x'2 [facility] <sup>2</sup> [facility] Tonsillectomy [id number] [facility] <sup>3</sup> [facility] Bypass of stomach [id number] [facility] Rotator cuff repair [id number] [facility] Heart procedure [id number] 1cardiac [facility] <sup>1</sup> stent for [facility]
[2018-04-15 19:46] LABS: Protime INR 0.98
--- OUTSIDE RECORDS SUMMARY | 2018-04-15 19:49 | XMS REPORT | CCD ---
:1965 Author Organization [facility] Care Team Providers Name Role Phone Sukhwinder [...]
--- OUTSIDE RECORDS SUMMARY | 2018-04-15 19:50 | XMS REPORT | CCD ---
:1965 Author Organization [facility] Care Team Providers Name Role Phone Milton Arabella Ruelas Consulting Provider Ezio Sifuentes Consulting Provider Allergies, Adverse Reactions, Alerts Substance Reaction Status NKDA Active Problem List Condition Effective Dates Status Acid reflux Resolved Anemia Resolved Anxiety Resolved Arthritis Resolved Depression Resolved Diabetes mellitus type 1 Resolved Edema of lower extremity Resolved Fibromyalgia Resolved Hyperlipidemia Resolved Hypertension Resolved MRSA1, 2 10/23/2012 Active 1nares 10/23/[id number] added by Discern Expert. Medications Medication Instructions [...] Duration: 30 day, Stop date: 12/06/12 1:48:00 [place] 5/325 oral tablet 1 tab, PO, Q6H, [...] Duration: 30 day, Stop date: 12/08/12 10:44:00 [place] 5/325 oral tablet 1 tab, Route: PO, [...] INJ, Q2H, Dosing Weight 100, kg, Total huis=1600 mg, Start date: 11/14/12 8:00:00, Duration: 2 [...] 11/08/2012 11/08/2012 Canceled PO, Drug form: TAB, [id number], Dosing Weight 100, kg, Start date: 11/08/12 [...] [Negative] Negative 1 (11/12/2012 21:54:26) 1Interpretive Data: Syandusigene Clostridium difficile assay utilizes loop-mediated isothermalDNA amplification (LAMP) technology to detect a 204 bp region of the tcdA gene within the PaLoc genesegment present in all known toxigenic C. difficile strains. The assay utilizes FDA cleared IVD reagents. Performance characteristics have been verified by the [facility] within the [facility]. The [facility] is authorized [...] values reflect the clinical guidelines of the [place] [employer].10Interpretive Data: Adult reference range values reflect the clinical guidelines of the [place] [employer].11Result Comment: rechecked Critical Result (s) called leslie Conner Rose at 11/12/2012 02:56:37 LODGING FACILITIES MANAGER by_mgm. Read back OK.12Interpretive Data: Adult reference range values reflect the clinical guidelines of the [place] [employer].13Result Comment: Critical Result(s) called to [...] 10.0 240 Poor Control, take action to [id number] Comment : Critical Result(s) called leslie Rose [...] Catch FREE TEXT SOURCE: FINAL REPORTS Final Rxcjrb46,000 - 100,000 CFU/mL Enterococcus SpeciesPRELIMINARY REPORTS Preliminary Rjbnve06,000 - 100,000 CFU/ mL Enterococcus Species Identification And Sensitivity PendingSUSCEPTIBILITY REPORT ENTERO Antibiotic INTERP. VDIL Ampicillin S Levofloxacin S Nitrofurantoin S Tetracycline R Vancomycin S
--- OUTSIDE RECORDS SUMMARY | 2018-04-15 19:50 | XMS REPORT | CCD ---
:1965 Author Organization [facility] Care Team Providers Name Role Phone Sukhwinder Renteria Referring Provider Allergies, Adverse Reactions, Alerts Substance Reaction Status NKDA Active Problem List Condition Effective Dates Status Acid reflux Resolved Anemia Resolved Anxiety Resolved Arthritis Resolved Depression Resolved Diabetes mellitus type 1 Resolved Edema of lower extremity Resolved Fibromyalgia Resolved Hyperlipidemia Resolved Hypertension Resolved Medications Medication Instructions Start Date End Date Status [place] 325 mg-10 mg / 15 mL, Route: [...] Duration: 30 day, Stop date: 11/02/12 10:59:00 [place] 325 mg-10 mg / 30 mL, Route: PO, 10/04/2012 10/05/2012 Discontinued 15 mL oral solution Drug Form: SOLN, Dosing Weight 118.2, kg, Q4H, PRN Pain Score 6-10, Start date: 10/04/12 17:20:00, Duration: 30 day, Stop date: 11/03/12 17:19:00 [place] 325 mg-10 mg / 15 mL, Route: [...] 14:28:00, PRN Blood Glucose Results Blistex Lip [place] Route: TOP, Dosing 10/06/2012 10/06/2012 Deleted Weight [...] /LPF] Few /LPF *NA* (10/06/2012 11:42:00) UA [place] Yeast [None Seen /HPF] Moderate /HPF *ABN* [...] values reflect the clinical guidelines of the [place] [employer].8Interpretive Data: Adult reference range values reflect the clinical guidelines of the [place] [employer].9Interpretive Data: Adult reference range values reflect the clinical guidelines of the [place] [employer].HEMATOLOGY Most recent to oldest 1 [...] Catch FREE TEXT SOURCE: FINAL REPORTS Final Xrfqoh51,000 - 50,000 CFU/mL Enterococcus SpeciesPRELIMINARY REPORTS Preliminary [place]22,000 - 50,000 CFU/ mL Enterococcus Species ; Sensitivity PendingSUSCEPTIBILITY REPORT ENTERO Antibiotic INTERP. VDIL Ampicillin S Levofloxacin S Nitrofurantoin S Tetracycline R Vancomycin S Procedures Procedures Date Related Diagnosis section Cholecystectomy 1 Hand repair 2 Tonsillectomy 3 , [id number]
--- OUTSIDE RECORDS SUMMARY | 2018-04-15 19:51 | XMS REPORT | CCD ---
:1965 Author Organization [facility] Care Team Providers Name Role Phone Emeil Clark Consulting Provider Allergies, Adverse Reactions, Alerts Substance Reaction Status NKDA Active Problem List Condition Effective Dates Status Acid reflux Resolved Anemia Resolved Anxiety Resolved Arthritis Resolved Depression Resolved Diabetes mellitus type 1 Resolved Edema of lower extremity Resolved Fibromyalgia Resolved Hyperlipidemia Resolved Hypertension Resolved MRSA1, 2 10/23/2012 Active 1nares 10/23/[id number] added by Discern Expert. Medications Medication Instructions [...] 1 doses or times, Dose= 2.2ml/kg, Max nsne=[id number] -- "To be infused by Radiology Staff ONLY" 201211/16/2012 Discontinued Dose=2.2ml/kg, Max hlge=[id number] -- "To be infused by Radiology Staff ONLY" calcium gluconate + Sodium 2,000 mg, 20 mL, Route: 11/17/2012 11/17/2012 Completed Chloride 0.9% IV 80 mL IVPB, ONCE, Dosing Weight 103.21, kg, Start date: 11/17/12 11:02:00, Stop date: 11/17/12 11:02:00 enoxaparin 40 mg, 0.4 mL, Route: 11/16/2012 11/17/2012 Discontinued SUB-Q, Drug form: INJ, [id number], Dosing Weight 100, kg, Start date: 11/16/12 [...] date: 11/16/12 13:40:00, Stop date: 11/16/12 13:40:00 [place] 5/325 oral tablet 1 tab, Route: PO, [...] values reflect the clinical guidelines of the [place] [employer].7Interpretive Data: Adult reference range values reflect the clinical guidelines of the [place] [employer].HEMATOLOGY Most recent to oldest [Reference [...]
--- OUTSIDE RECORDS SUMMARY | 2018-04-15 19:51 | XMS REPORT | CCD ---
:1965 Author Organization [facility] Care Team Providers Name Role Phone Nikhil Hager Consulting Provider Sukhwinder Renteria Consulting Provider Allergies, Adverse Reactions, Alerts Substance Reaction Status NKDA Active Problem List Condition Effective Dates Status Acid reflux Resolved Anemia Resolved Anxiety Resolved Arthritis Resolved Depression Resolved Diabetes mellitus type 1 Resolved Edema of lower extremity Resolved Fibromyalgia Resolved Hyperlipidemia Resolved Hypertension Resolved MRSA1, 2 10/23/2012 Active 1nares 10/23/[id number] added by Discern Expert. Medications Medication Instructions [...] mg, 1 supp, 10/23/2012 11/01/2012 Discontinued Route: MT, Drug form: SUPP, Q6H, Dosing Weight 113.636, kg, PRN Fever, Start date: 10/23/12 0:37:00, Duration: 30 day, Stop date: 11/22/12 0:36:00 Vis[place] 320mg/ml 126 mL, Route: IVP, Drug Form: SOLN, Dosing Weight 113.636 , kg, ONCALL, STAT, Start date: 10/23/12 16:52:00, Duration: 1 doses or times, Dose=2.2ml/kg, Max tgvm=142sv -- "To be infused by Radiology Staff ONLY" 10/2310/23/2012 Completed Dose=2.2ml/kg, Max grym=[id number] -- "To be infused by Radiology Staff [...] mg, 1 supp, 10/24/2012 10/24/2012 Deleted Route: MT, Drug form: SUPP, ONCE, Dosing Weight 78.2, [...] Duration: 1 doses or times, Dose=2.2ml/kg, Max ptwe=385il -- "To be infused by Radiology Staff ONLY" 10/2310/23/2012 Completed Dose=2.2ml/kg, Max dgdm=[id number] -- "To be infused by Radiology Staff [...] by the [facility] within the [facility]. The [facility] is authorized [...] the clinical guidelines of the [place] [employer].11Interpretive Data: Adult reference range values reflect the clinical guidelines of the [place] [employer].12Interpretive Data: Adult reference range values reflect the clinical guidelines of the [place] [employer].13Interpretive Data: Reference range is based on recommendations in the Endocrine Society Clinical Practice Guideline (J Clin Endocrinol Metab 2011;96:4965-1014)14Result Comment: Specimen Moderately Hemolyzed.15Result Comment: Critical Result(s) called to daisy otoole at 10/25/2012 01:18:09 CHILDREN'S SERVICE SUPERVISOR by tac. Read back OK.16Result Comment: Critical Result(s) called to Maribel Bustos at 10/24/2012 13:23:46 CHILDREN'S SERVICE SUPERVISOR by lwb . Readback OK.17Result Comment: Critical Result(s) called to Lyn King at 10/24/2012 09:52:38 CHILDREN'S SERVICE SUPERVISOR by lwb . Read back OK.18Result Comment: Critical Result(s) called to Jelani Rasmussen at 10/25/2012 00: 47:48 CHILDREN'S SERVICE SUPERVISOR by RM. Read back OK.19Result Comment: Critical Result(s) called to mariana bustos at _ 10/24/2012 13:37:22 CSTby_lss. Readback OK.20Result Comment : Critical Result(s) called to romero beltre at _10/24/2012 09:50:18 CHILDREN'S SERVICE SUPERVISOR by_lss. Read back OK.21Interpretive Data: HbA1C% eAG(mg/dL) [...] Data: Heparin Therapeutic Range: 57 - 92 [id number] Data: Heparin Therapeutic Range: 57 - 92 Yxfabza45Zruiafavwqpq Data: Heparin Therapeutic Range: 57 - 92 Seconds Microbiology Reports PROCEDURE:Culture: Urine STATUS: Auth (Verified) BODY SITE: COLLECTED DATE/TIME: 10/23/2012 20:33:00 SOURCE: Urine,Straight Cath FREE TEXT SOURCE: FINAL REPORTS Final Ojmusw46,000 - 100,000 CFU/mL Gram Negative Rods , Lactose Fermenters , 2 [place] Types 50,000 - 100,000 CFU/mL Enterococcus Species [...]
--- OUTSIDE RECORDS SUMMARY | 2018-04-15 19:52 | XMS REPORT | CCD ---
:1965 Author Organization [facility] Care Team Providers Name Role Phone Marcela Michaelsbhumika Westbrook Consulting Provider Alberto Mata Consulting Provider Allergies, Adverse Reactions, Alerts Substance Reaction Status NKDA Active Problem List Condition Effective Dates Status Acid reflux Resolved Anemia Resolved Anxiety Resolved Arthritis Resolved Depression Resolved Diabetes mellitus type 1 Resolved Edema of lower extremity Resolved Fibromyalgia Resolved Hyperlipidemia Resolved Hypertension Resolved [place] - Myocardial infarction 10/22/2012 Resolved MRSA1, 2, 3, 4 10/23/2012 Active Neuropathy Resolved - Nares - [id number] 10/23/[id number] added by Discern Expert. Medications Medication Instructions [...] IVPB, Drug 12/02/2012 12/02/2012 Discontinued form: PDR/INJ, [id number], Dosing Weight 100, kg, Start date: 12/02/12 [...] 11/29/2012 11/29/2012 Discontinued SUB-Q, Drug form: INJ, [id number], Dosing Weight 101.364, kg, Start date: 11/29/12 [...] mg, 1 supp, Route: 12/04/2012 12/07/2012 Discontinued DE, Drug form: SUPP, Q4H, Dosing Weight 100, [...] date: 12/04/12 23:39:00, Stop date: 12/04/12 23:39:00 [place] 7.5/325 oral tablet 1 tab, Route: PO, [...] IVPB, Drug 11/29/2012 12/01/2012 Discontinued form: PDR/INJ, [id number], Dosing Weight 100, kg, Start date: 11/29/12 [...] 7:47:00 Phenergan 25 mg rectal 1 supp, DE, Q6H, PRN, 9 11/29/2012 Ordered suppository supp, [...] by the [facility] within the [facility]. The [facility] Laboratory is [...] values reflect the clinical guidelines of the [place] [employer].11Interpretive Data: Adult reference range values reflect the clinical guidelines of the [place] [employer].12Interpretive Data: Adult reference range values reflect the clinical guidelines of the [place] [employer].13Interpretive Data: No established reference ranges.14Interpretive [...] Data: Heparin Therapeutic Range: 57 - 92 [id number] Data: Heparin Therapeutic Range: 57 - 92 [...] Catch FREE TEXT SOURCE: FINAL REPORTS Final Lnmbar74,000 - 50,000 CFU/mL Yeast <10,000 CFU/mL Skin EsPRELIMINARY REPORTS Preliminary ReportNo Growth; Holding Procedures Procedures Date Related Diagnosis Heart procedure 1 1cardiac stent for [place]
[2018-04-15 19:53] LABS: Albumin 3.6 g/dL (3.4-5.0); Bilirubin Direct 0.1 mg/dL (0-0.2); Bilirubin Total 0.4 mg/dL (0.2-1.0); Magnesium 1.8 mg/dL (1.8-2.4); Potassium 4.8 mmol/L (3.5-5.1); Protein, Total 7.5 g/dL (6.4-8.2)
--- OUTSIDE RECORDS SUMMARY | 2018-04-15 19:53 | XMS REPORT | CCD ---
:1965 Author Organization [facility] Care Team Providers Name Role Phone Sukhwinder Renteria Referring Provider Allergies, Adverse Reactions, Alerts Substance Reaction Status NKDA Active Problem List Condition Effective Dates Status Acid reflux Resolved Anemia Resolved Anxiety Resolved Arthritis Resolved Depression Resolved Diabetes mellitus type 1 Resolved Edema of lower extremity Resolved Fibromyalgia Resolved Gastric ulcer Resolved Hyperlipidemia Resolved Hypertension Resolved [place] - Myocardial infarction 10/22/2012 Resolved MRSA1, 2, 3, 4 10/23/2012 Active Neuropathy Resolved - Nares - Auetn0mihey 10/23/[id number] added by Discern Expert. Medications Medication Instructions [...]
--- OUTSIDE RECORDS SUMMARY | 2018-04-15 19:53 | XMS REPORT | CCD ---
:1965 Author Organization [facility] Care Team Providers Name Role Phone Alberto Mata Jace Consulting Provider Allergies, Adverse Reactions, Alerts Substance Reaction Status NKDA Active Problem List Condition Effective Dates Status Acid reflux Resolved Anemia Resolved Anxiety Resolved Arthritis Resolved Depression Resolved Diabetes mellitus type 1 Resolved Edema of lower extremity Resolved Fibromyalgia Resolved Gastric ulcer Resolved Hyperlipidemia Resolved Hypertension Resolved [place] - Myocardial infarction 10/22/2012 Resolved MRSA1, 2, 3, 4 10/23/2012 Active Neuropathy Resolved - Nares - Luadt0ihnbz 10/23/[id number] added by Discern Expert. Medications Medication Instructions [...] values reflect the clinical guidelines of the [place] [employer].7Interpretive Data: Adult reference range values reflect the clinical guidelines of the [place] [employer].HEMATOLOGY Most recent to oldest [Reference [...]
--- OUTSIDE RECORDS SUMMARY | 2018-04-15 19:53 | XMS REPORT | CCD ---
:1965 Author Organization [facility] Care Team Providers Name Role [...] 10/23/2012 Active Neuropathy Resolved - Nares/ - Ivyoo0utzmw 10/23/[id number] added by Discern Expert. Medications Medication Instructions [...] 03/08/13 3:17:00, Stop date: 03/08/13 3:17:00 lidocaine-epi 1%-1:[id number] 1 ml, Route: SUB-Q, Drug 03/07/2013 03/07/2013 [...] date: 03/07/13 2:35:00, Stop date: 03/07/13 2:35:00 [place] 5/325 oral tablet 1 tab, PO, Q6H, [...] Results BEDSIDE GLUCOSE TESTING Most recent to [facility] 1 2 3 [Reference Range]: Gluc [...] Reportable Limit: 200 mg/dL.URINALYSIS Most recent to [facility] [Reference Range]: 1 2 3 UA [...] the clinical guidelines of the [place] [employer].8Interpretive Data: Adult reference range values reflect the clinical guidelines of the [place] [employer].9Interpretive Data: Adult reference range values reflect the clinical guidelines of the [place] [employer].HEMATOLOGY Most recent to oldest 1 [...]
--- OUTSIDE RECORDS SUMMARY | 2018-04-15 19:54 | XMS REPORT | CCD ---
:1965 Author Organization [facility] Care Team Providers Name Role Phone Robert [...] 10/23/2012 Active Neuropathy Resolved - Nares - Mulpf1lqedg 10/23/[id number] added by Discern Expert. Medications Medication Instructions [...] values reflect the clinical guidelines of the [place] [employer].HEMATOLOGY Most recent to oldest [Reference [...]
--- OUTSIDE RECORDS SUMMARY | 2018-04-15 19:54 | XMS REPORT | CCD ---
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 Medications Medication Instructions Start Date End Date Status acetaminophen-hydrocod 1 tab, Route: PO, Drug Form: 07/12/2013 07/14/2013 Discontinued one 325 mg-5 mg oral TAB, Dosing Weight 86.364, tablet kg, Q4H, PRN Pain, Start date: 07/12/13 18:23:00, Duration: 30 day, Stop date: 08/11/13 18:22:00(Same as: [place] 325/5) Do not exceed 4gm/day of acetaminophen. [...] 1 doses or times, Dose =2.2ml/kg, Max rgba=398pj -- "To be infused by Radiology Staff ONLY" 201207/12/2013 Completed Dose=2.2ml/kg, Max ykpp=115nc -- "To be infused by Radiology Staff [...] day, Stop date: 08/11/13 9:00:00(Same as: Lopressor) [place] 5/325 oral 1 tab, Route: PO, Dosing [...] date: 08/11/13 9:00:00(Same as: Mag-Ox 400)Magnesium oxide 051xl=854zg elemental magnesiumDose=____mg magnesium oxide (___mg elemental magnesium) [...] [Negative] Negative 1 (07/13/2013 00:00:59) 1Interpretive Data: [employer] Clostridium difficile assay utilizes loop-mediated isothermalDNA amplification (LAMP) technology to detect a 204 bp region of the tcdA gene within the PaLoc genesegment present in all known toxigenic C. difficile strains. The assay utilizes FDA cleared IVD reagents. Performance characteristics have been verified by the [facility] within the [facility]. The [facility] Laboratory is authorized [...] /LPF] Many /LPF *ABN* (07/12/2013 03:00:00) UA [place] Yeast [None Seen /HPF] Moderate /HPF *ABN* [...] values reflect the clinical guidelines of the [place] Diabetes [employer].9Interpretive Data: Adult reference range values reflect the clinical guidelines of the [place] [employer].10Interpretive Data: Adult reference range values reflect the clinical guidelines of the [place] [employer].HEMATOLOGY Most recent to oldest [Reference [...] to oldest [Reference Range]: 1 2 3 [place]-HIV 1/2 Ab [Negative] Negative *NA* (07/14/2013 00:27:00) [place]-Hep C Ab [Negative] Negative *NA* (07/14/2013 00:27:00) CDC-HIV 1/2 Ab [Negative] Negative *NA* (07/12/2013 16:02:06)
--- OUTSIDE RECORDS SUMMARY | 2018-04-15 19:54 | XMS REPORT ---
:1965 Author Organization [facility] Address [address] [place] [address] [address] [place] [address] Care Team Providers Name Role Phone MILO [...] (BEAKER) (test 200 mg/dL 70-110 TESTED AT [facility] [address] [facility] ibhr=[id number]) [facility] [address] [id number] 12:24:00 Test Item Value Reference Range Comments SODIUM (BEAKER) (test eeuu=407) 136 meq/L 136-145 POTASSIUM (BEAKER) (test qbaj=746) 5.4 meq/L 3.5-5.1 CHLORIDE (BEAKER) (test njal=251) 102 meq/L 98-107 CO2 (BEAKER) (test tuef=308) 25 meq/L 22-29 [id number] 12:24:00 Test Item Value Reference Range Comments GLUCOSE RANDOM (BEAKER) (test kmpa=421) 353 mg/dL 70-105 BUN AND [id number] 12:24:00 Test Item Value Reference Range Comments BLOOD UREA NITROGEN 14 mg/dL 7-21 (BEAKER) (test ejjn=404) CREATININE (BEAKER) (test 1.08 mg/dL 0.57-1.25 hlmt=922) EGFR (BEAKER) (test 53 mL/min/1.73 sq m ESTIMATED GFR IS NOT dekb=5910) ACCURATE CREATININE CLEARANCE IN PREDICTING GLOMERULAR FILTRATION RATE. ESTIMATED GFR IS NOT APPLICABLE FOR DIALYSIS PATIENTS. POCT-HEMOGLOBIN [id number] 11:43:00 Test Item Value Reference Range Comments POC-HEMOGLOBIN METER 12.1 g/dL 12.0-15.0 TESTED AT [address] ([facility]) (test ihmm=8775) [facility] [address] POCT-GLUCOSE [id number] 11:43:00 Test Item Value Reference Range Comments POC-GLUCOSE METER ([facility]) 320 mg/dL 70-110 Verify with Lab draw/TESTED AT (test aeqb=5555) [address] [address]
--- NOTE | 2018-04-15 19:55 | RAD REPORT ---
EXAM DESCRIPTION: CT - CTHCSPWOC - 04/15/2018 7:30 pm CLINICAL HISTORY: Head and neck injury, altered mental status COMPARISON: None. TECHNIQUE: Axial 5 mm thick images of the head were obtained. Axial 2 mm thick images of the cervic al spine were obtained with sagittal and coronal reconstruction images generated and reviewed. All CT scans are performed using dose optimization technique as appropriate and may include automated exposure control or mA/KV adjustment according to patient size. FINDINGS: No intracranial hemorrhage, mass, edema or acute intracranial finding. No acute cortical based infarc tion. Atrophy changes are present greater than expected for age. Ventricles are prominent are probabl y still within limits for the amount of volume loss. Arterial and physiologic calcifications are pres ent. No extra-axial fluid collections. Mastoid air cells and paranasal sinuses are clear. No globe or orbit abnormality seen. Cervical body height and alignment are normal. No disk space narrowing. No fracture or acute bony abn ormality. Central canal detail is inherently limited. No paraspinal mass or hematoma. IMPRESSION: No hemorrhage, mass or acute intracranial finding. Mild atrophy and chronic ischemic corey nges are present. Ventricles are prominent and borderline for being out of proportion to volume loss. Negative CT cervical spine examination for acute or significant finding.
[2018-04-15] MEDS ORDERED: NA CHLORIDE 0.9% 1,000 ML ONE (20:16)
--- NOTE | 2018-04-15 20:44 | ER ---
Nurse's Notes [facility] Name: Ila Pérez Age: 52 yrs Sex: Female : 1965 Arrival Date: 04/15/2018 Time: 18:38 Bed 6 Private MD: Diagnosis: Contusion of right lower leg-and Right Upper Leg;Other slipping, tripping and stumbling and falls;Diabetes mellitus due to underlying condition with hyperglycemia Presentation: 04/15 18:38 Transition of care: patient was not received from another setting of care. Onset of ss symptoms was April 15, 2018. Risk Assessment: Do you want to hurt yourself or someone else? Patient reports no desire to harm self or others. Care prior to arrival: Glucose check: 421. 18:38 Method Of Arrival: [facility] ss 18:38 Acuity: DEVONTE 3 ss 19:00 Presenting complaint: Patient states: I FORGOT MY 'S PHONE NUMBER. Initial bp Sepsis Screen: Does the patient meet any 2 criteria? No. Patient's initial sepsis screen is negative. Does the patient have a suspected source of infection? No. Patient's initial sepsis screen is negative. CHIEF COUNSEL: 18:44 LMP N/A - Hysterectomy aj Historical: - Allergies: 18:43 Gluten Protein; ss - Home Meds: 19:00 Vasculera 630 mg Oral tab daily [Active]; Albuterol Inhl [Active]; aspirin 81 mg Oral bp chew 1 tab once daily [Active]; benzonatate 100 mg Oral cap 1 cap twice a day [Active]; bupropion HCl 150 mg Oral TbER once daily [Active]; Carafate 100 mg/mL Oral susp 10 mL three times a day [Active]; cyclobenzaprine 10 mg Oral tab twice a day [Active]; Claritin 10 mg Oral tab 1 tab once daily [Active]; diphenoxylate-atropine 2.5-0.025 mg Oral tab 1-2 tablets every 6 hours [Active]; duloxetine 60 mg Oral cpDR 2 caps once daily [Active]; furosemide 20 mg Oral tab one to two tabs every morning [Active]; Glucosamine Oral [Active]; Glucagon Emergency Kit (human) 1 mg IM kit 1 mL [Active]; hydroxyzine HCl 25 mg Oral tab 1 tab twice a day [Active]; Lantus 18 U Sub-Q soln daily [Active]; lisinopril 5 mg Oral tab 1 tab once daily [Active]; lorazepam 1 mg Oral tab twice a day [Active]; lorazepam 1 mg Oral tab 1 tab 3 times per day [Active]; Lyrica Oral 150 mg 2 times per day [Active]; metoprolol succinate 25 mg Oral Tb24 1 tab once daily [Active]; multivitamin Oral cap [Active]; Myrbetriq 25 mg Oral Tb24 1 tab once daily [Active]; nitroglycerin 0.4 mg SL subl 1 tab every 5 minutes [Active]; ondansetron HCl 8 mg Oral tab [Active]; pantoprazole 40 mg Oral TbEC 1 tab 2 times per day [Active]; Rozerem 8 mg Oral tab 1 tab bedtime [Active]; tramadol 50 mg Oral tab 1 tab three times a day [Active]; trazodone 50 mg Oral tab nightly [Active]; cholestopl 1 mg twice a day [Active]; Cinnamon 500 mg Oral cap 2 cap daily [Active]; D3 2000 IU 2 per day [Active]; ferrous sulfate 325 mg (65 mg iron) Oral TbEC twice a day [Active]; Humalog 100 unit/mL Sub-Q soln [Active]; Ginko [place] 120 mg daily [Active]; k2 100 mcg bid [Active]; amoxicillin and tylenol #3 for dental procedure [Active]; - PMHx: 18:43 Anxiety; Arthritis; Depression; Diabetes - IDDM; Esophagitis; Fibromyalgia; GERD; ss neuropathy; gastroporeisis; High Cholesterol; Tachycardia; heart disease; Hypertension; Myocardial infarction; raynaud's; Chronic pain; - PSHx: 18:43 cataract sx; Carpal Tunnel Repair; Cholecystectomy; Tonsillectomy; Gastric Bypass; ss ; Knee surgery; rotator cuff; trigger finger release; - Immunization history:: Adult Immunizations. - Social history:: Smoking status: Patient uses tobacco products, smokes one-half pack cigarettes per day. - Ebola Screening: : Patient negative for fever greater than or equal to 101.5 degrees Fahrenheit, and additional compatible Ebola Virus Disease symptoms Patient denies exposure to infectious person Patient denies travel to an Ebola-affected area in the 21 days before illness onset No symptoms or risks identified at this time. Screenin:50 Abuse screen: Denies threats or abuse. Denies injuries from another. Nutritional aj screening: No deficits noted. Tuberculosis screening: No symptoms or risk factors identified. Fall Risk None identified. Assessment: 18:51 General: Appears in no apparent distress. comfortable, Behavior is calm, cooperative, aj appropriate for age. Pain: Denies pain. Neuro: Level of Consciousness is awake, alert, obeys commands, Oriented to person, place, time, situation, Appropriate for age Automotive Light Mechanic are equal bilaterally Moves all extremities. Full function Gait is steady, Speech is slurred, Facial symmetry appears normal, Pupils are PERRLA, Intact Reports Forgetting her 's phone number and other numbers today. Respiratory: Airway is patent Respiratory effort is even, unlabored, Respiratory pattern is regular, symmetrical. GI: Abdomen is obese. Derm: Skin is intact, is healthy with good turgor, Skin is pink, warm \\T\\ dry. normal. 19:00 Reassessment: RECD REPORT FROM PENG SOLIZ. 52YO WF P/W SUBJECTIVE FORGETFULNESS, "I bp CAN'T REMEMBER MY 'S PHONE NUMBER". NO FOCAL NEURO FINDINGS OR ACUTE DEFICITS NOTED ON EXAM. 20:08 Reassessment: ALL CURRENT ORDERS COMPLETED, RAD/LAB RESULTS PENDING. PT VS STABLE ON bp MONITOR. 20:47 Reassessment: PT D/C HOME AMBULATORY, DX WITH HYPERGLYCEMIA AND CONTUSION. bp Vital Signs: 18:43 BP 138 / 53; Pulse 80; Resp 14; Pulse Ox 100% on R/A; Weight 90.72 kg; Height 5 ft. 4 ss in. (162.56 cm); Pain 0/10; 20:00 BP 133 / 69; Pulse 82; Resp 14; Pulse Ox 99% ; bp 18:43 Body Mass Index 34.33 (90.72 kg, 162.56 cm) ED Course: 18:38 Patient arrived in ED. ss 18:39 Triage completed. ss 18:43 Arm band placed on right wrist. ss 18:44 Peng Sumner, RN is Primary Nurse. aj 18:50 Patient has correct armband on for positive identification. Bed in low position. Side aj rails up X2. Pulse ox on. NIBP on. 18:50 Inserted saline lock: 20 gauge in right EJ, using aseptic technique. Blood collected. aj 18:57 Russel Aguirre PA is PHCP. cp 18:57 Michael Omalley MD is Attending Physician. cp 19:[address] kw1 19:26 CT completed. Patient tolerated procedure well. Patient moved back from CT. vm2 19:30 CT Head C Spine In Process Unspecified. EDMS 19:50 XRAY Tib Fib RIGHT In Process Unspecified. EDMS 19:50 XRAY Femur RIGHT In Process Unspecified. EDMS 20:07 Fiot Granados, RN is Primary Nurse. bp 20:09 Yoan Landon MD is Attending Physician. cp 20:48 No provider procedures requiring assistance completed. IV discontinued, intact, bp bleeding controlled, No redness/swelling at site. Pressure dressing applied. Administered Medications: 20:01 Drug: NS 0.9% 500 ml Route: IV; Rate: bolus; Site: right jugular; ao 20:01 Drug: NovoLIN R 7 units {Co-Signature: bp (Fito Granados RN).} Route: Sub-Q; Site: ao right upper arm; 20:13 Follow up: Response: No adverse reaction bp Point of Care Testing: Blood Glucose: 18:54 Blood Glucose: 303 mg/dL; [facility] Ranges: Outcome: 20:43 Discharge ordered by MD. cp 20:48 Discharged to home ambulatory. bp 20:48 Condition: stable 20:48 Discharge instructions given to patient, Instructed on discharge instructions, follow up and referral plans. Demonstrated understanding of instructions, follow-up care. 20:58 Patient left the ED. bp Signatures: Dispatcher [employer] EDPeng Goodman RN RN aj Smirch, Shelby, RN RN ss Page, Corey, PA PA cp Ken Vega RN RN Elise Donohue [facility] Yasmeen Jerez [facility] Fito Granados RN RN bp Joy Worrell kw1 Fito Granados RN bp Corrections: (The following items were deleted from the chart) 18:52 18:44 BP 138 / 53; Pulse 80bpm; Resp 17bpm; Pulse Ox 99% RA; Temp 97.6F; 99.79 kg; aj Height 5 ft. 4 in.; BMI: 37.7; aj
--- NOTE | 2018-04-15 20:44 | EDPHYS ---
Physician Documentation [facility] Name: Ila Pérez Age: 52 yrs Sex: Female : 1965 Arrival Date: 04/15/2018 Time: 18:38 Bed 6 Private MD: ED Physician Yoan Landon HPI: 04/15 19:05 This 52 yrs old Female presents to ER via EMS with complaints of cp foregetfulness. 19:05 Onset: The symptoms/episode began/occurred 2 day(s) ago. cp 19:05 Details of fall: The patient fell from an upright position, tripped over chair. cp 19:05 Associated injuries: The patient sustained right leg. Patient reports she was concerned cp today because she was unable to recall phone number of husbands cell phone. DIRECTOR OF ANNUAL GIVING: 18:44 LMP N/A - Hysterectomy aj Historical: - Allergies: 18:43 Gluten Protein; ss - Home Meds: 19:00 Vasculera 630 mg Oral tab daily [Active]; Albuterol Inhl [Active]; aspirin 81 mg Oral bp chew 1 tab once daily [Active]; benzonatate 100 mg Oral cap 1 cap twice a day [Active]; bupropion HCl 150 mg Oral TbER once daily [Active]; Carafate 100 mg/mL Oral susp 10 mL three times a day [Active]; cyclobenzaprine 10 mg Oral tab twice a day [Active]; Claritin 10 mg Oral tab 1 tab once daily [Active]; diphenoxylate-atropine 2.5-0.025 mg Oral tab 1-2 tablets every 6 hours [Active]; duloxetine 60 mg Oral cpDR 2 caps once daily [Active]; furosemide 20 mg Oral tab one to two tabs every morning [Active]; Glucosamine Oral [Active]; Glucagon Emergency Kit (human) 1 mg IM kit 1 mL [Active]; hydroxyzine HCl 25 mg Oral tab 1 tab twice a day [Active]; Lantus 18 U Sub-Q soln daily [Active]; lisinopril 5 mg Oral tab 1 tab once daily [Active]; lorazepam 1 mg Oral tab twice a day [Active]; lorazepam 1 mg Oral tab 1 tab 3 times per day [Active]; Lyrica Oral 150 mg 2 times per day [Active]; metoprolol succinate 25 mg Oral Tb24 1 tab once daily [Active]; multivitamin Oral cap [Active]; Myrbetriq 25 mg Oral Tb24 1 tab once daily [Active]; nitroglycerin 0.4 mg SL subl 1 tab every 5 minutes [Active]; ondansetron HCl 8 mg Oral tab [Active]; pantoprazole 40 mg Oral TbEC 1 tab 2 times per day [Active]; Rozerem 8 mg Oral tab 1 tab bedtime [Active]; tramadol 50 mg Oral tab 1 tab three times a day [Active]; trazodone 50 mg Oral tab nightly [Active]; cholestopl 1 mg twice a day [Active]; Cinnamon 500 mg Oral cap 2 cap daily [Active]; D3 2000 IU 2 per day [Active]; ferrous sulfate 325 mg (65 mg iron) Oral TbEC twice a day [Active]; Humalog 100 unit/mL Sub-Q soln [Active]; [place] 120 mg daily [Active]; k2 100 mcg bid [Active]; amoxicillin and tylenol #3 for dental procedure [Active]; - PMHx: 18:43 Anxiety; Arthritis; Depression; Diabetes - IDDM; Esophagitis; Fibromyalgia; GERD; ss neuropathy; gastroporeisis; High Cholesterol; Tachycardia; heart disease; Hypertension; Myocardial infarction; raynaud's; Chronic pain; - PSHx: 18:43 cataract sx; Carpal Tunnel Repair; Cholecystectomy; Tonsillectomy; Gastric Bypass; ss ; Knee surgery; rotator cuff; trigger finger release; - Immunization history:: Adult Immunizations. - Social history:: Smoking status: Patient uses tobacco products, smokes one-half pack cigarettes per day. - Ebola Screening: : Patient negative for fever greater than or equal to 101.5 degrees Fahrenheit, and additional compatible Ebola Virus Disease symptoms Patient denies exposure to infectious person Patient denies travel to an Ebola-affected area in the 21 days before illness onset No symptoms or risks identified at this time. ROS: 19:10 Constitutional: Negative for body aches, chills, fever, poor PO intake. cp 19:10 Eyes: Negative for injury, pain, redness, and discharge. cp 19:10 ENT: Negative for drainage from ear(s), ear pain, sore throat, difficulty swallowing, difficulty handling secretions. 19:10 Cardiovascular: Negative for chest pain, edema, palpitations. 19:10 Respiratory: Negative for cough, shortness of breath, wheezing. 19:10 Abdomen/GI: Negative for abdominal pain, nausea, vomiting, and diarrhea, black/tarry stool, rectal bleeding. 19:10 Back: Negative for pain at rest, pain with movement, radiated pain. 19:10 MS/extremity: Positive for ecchymosis, pain, swelling, tenderness, of the right leg, Negative for decreased range of motion. 19:10 Skin: Negative for cellulitis, rash. 19:10 Neuro: Positive for difficulty recalling cell phone number of , Negative for altered mental status, dizziness, headache, loss of consciousness, syncope, near syncope, weakness. 19:10 Psych: Positive for 19:10 All other systems are negative. Exam: 19:15 Constitutional: The patient appears in no acute distress, alert, awake, cp non-diaphoretic, non-toxic, well developed, well nourished. 19:15 Head/Face: Normocephalic, atraumatic. cp 19:15 Eyes: Periorbital structures: appear normal, Pupils: equal, round, and reactive to light and accomodation, Extraocular movements: intact throughout, Conjunctiva: normal, no exudate, no injection, Sclera: no appreciated abnormality, Lids and lashes: appear normal, bilaterally. 19:15 ENT: External ear(s): are unremarkable, Ear canal(s): are normal, clear, TM's: dullness, bilaterally, Nose: is normal, Mouth: Lips: moist, Oral mucosa: pink and intact, Posterior pharynx: is normal, airway is patent, no erythema, no exudate. 19:15 Neck: ROM/movement: is normal, is supple, without pain, no range of motions limitations, no nuchal rigidity. 19:15 Chest/axilla: Inspection: normal, Palpation: is normal, no crepitus, no tenderness. 19:15 Cardiovascular: Rate: normal, Rhythm: regular, Pulses: Pulses are 2+ in right radial artery and left radial artery. Edema: is not appreciated, JVD: is not appreciated. 19:15 Respiratory: the patient does not display signs of respiratory distress, Respirations: normal, no use of accessory muscles, no retractions, no splinting, no tachypnea, labored breathing, is not present, Breath sounds: are clear throughout, no decreased breath sounds, no stridor, no wheezing. 19:15 Abdomen/GI: Inspection: abdomen appears normal, Bowel sounds: active, all quadrants, Palpation: abdomen is soft and non-tender, in all quadrants, rebound tenderness, is not appreciated, voluntary guarding, is not appreciated, involuntary guarding, is not appreciated. 19:15 Back: pain, is absent, ROM is normal. 19:15 Musculoskeletal/extremity: Extremities: grossly normal except: noted in the right leg: ecchymosis, swelling, tenderness, There is no evidence of decreased ROM, deformity, ROM: full active range of motion, in the right leg, Perfusion: the extremity is normally perfused throughout, Sensation intact. 19:15 Skin: cellulitis, is not appreciated, no rash present. 19:15 Neuro: Orientation: to person, place \T\ time. Memory: difficulty recalling cell phone number of , Cerebellar function: is grossly normal, Motor: moves all fours, strength is normal, Sensation: no obvious gross deficits. 20:03 ECG was reviewed by the Attending Physician. cp Vital Signs: 18:43 BP 138 / 53; Pulse 80; Resp 14; Pulse Ox 100% on R/A; Weight 90.72 kg; Height 5 ft. 4 ss in. (162.56 cm); Pain 0/10; 20:00 BP 133 / 69; Pulse 82; Resp 14; Pulse Ox 99% ; bp 18:43 Body Mass Index 34.33 (90.72 kg, 162.56 cm) ss MDM: 18:57 Patient medically screened. cp 19:00 Differential diagnosis: closed head injury, contusion, fracture, multiple trauma, cp medication effects, electrolyte abnormality, cardiac arrythmia. 20:42 Data reviewed: vital signs, nurses notes, lab test result(s), EKG, radiologic studies, cp CT scan, plain films. 20:42 Test interpretation: by ED physician or midlevel provider: ECG, plain radiologic cp studies. Counseling: I had a detailed discussion with the patient and/or guardian regarding: the historical points, exam findings, and any diagnostic results supporting the discharge/admit diagnosis, lab results, radiology results, to return to the emergency department if symptoms worsen or persist or if there are any questions or concerns that arise at home. Response to treatment: the patient's symptoms have mildly improved after treatment, VSS. Radiology studies negative for acute findings. Will discharge to home for continued monitoring. 04/15 18:54 Order name: glucometer results - FOR PT WITH NO ID; Complete Time: 19:56 dh3 04/15 19:56 Interpretation: Abnormal: GLUCATNOID 303. cp 04/15 19:11 Order name: CBC with Diff; Complete Time: 19:56 cp 04/15 19:11 Order name: CPK cp 04/15 19:11 Order name: LFT's cp 04/15 19:11 Order name: Magnesium; Complete Time: 19:56 cp 04/15 19:11 Order name: PT-INR; Complete Time: 19:56 cp 04/15 19:11 Order name: Ptt, Activated; Complete Time: 19:56 cp 04/15 19:11 Order name: Troponin (emerg Dept Use Only); Complete Time: 19:56 cp 04/15 19:11 Order name: AMMONIA; Complete Time: 19:56 cp 04/15 20:41 Interpretation: Reviewed. 04/15 19:12 Order name: Basic Metabolic Panel; Complete Time: 19:56 EDMS 04/15 19:56 Interpretation: Normal except: NA 131; CL 97; GLUC 370; GFR 58. cp 04/15 19:12 Order name: Creatine Phosphokinase; Complete Time: 19:56 EDMS 04/15 19:11 Order name: EKG; Complete Time: 19:12 cp 04/15 19:11 Order name: Cardiac monitoring; Complete Time: 20:02 cp 04/15 19:11 Order name: EKG - Nurse/Tech; Complete Time: 20:02 cp 04/15 19:11 Order name: IV Saline Lock; Complete Time: 19:25 cp 04/15 19:11 Order name: Labs collected and sent; Complete Time: 19:25 cp 04/15 19:11 Order name: O2 Per Protocol; Complete Time: 19:25 cp 04/15 19:11 Order name: O2 Sat Monitoring; Complete Time: 19:23 cp 04/15 19:11 Order name: XRAY Tib Fib RIGHT cp 04/15 19:11 Order name: XRAY Femur RIGHT cp 04/15 19:11 Order name: CT Head C Spine; Complete Time: 19:56 cp 04/15 19:57 Interpretation: Reviewed report. cp 04/15 19:12 Order name: Liver (Hepatic) Function; Complete Time: 19:56 EDMS EC:03 Rate is 79 beats/min. Rhythm is regular. MA interval is normal. QRS interval is normal. cp QT interval is normal. Interpreted by me. Reviewed by me. Administered Medications: 20:01 Drug: NS 0.9% 500 ml Route: IV; Rate: bolus; Site: right jugular; ao 20:01 Drug: NovoLIN R 7 units {Co-Signature: bp (Fito Granados RN).} Route: Sub-Q; Site: ao right upper arm; 20:13 Follow up: Response: No adverse reaction bp Point of Care Testing: Blood Glucose: 18:54 Blood Glucose: 303 mg/dL; dh3 Ranges: Critical Glucose Levels:Adult <50 mg/dl or >400 mg/dl <40 mg/dl or >180 mg/dl Disposition: 21:45 Co-signature as Attending Physician, Yoan Landon MD. pk Disposition: 04/15/18 20:43 Discharged to Home. Impression: Contusion of right lower leg - and Right Upper Leg, Other slipping, tripping and stumbling and falls, Diabetes mellitus due to underlying condition with hyperglycemia. - Condition is Stable. - Discharge Instructions: Contusion, Fall Prevention in the Home, Blood Glucose Monitoring, Adult. - Medication Reconciliation Form, Thank You Letter, Antibiotic Education, Prescription Opioid Use form. - Follow up: Private Physician; When: 1 - 2 days; Reason: Recheck today's complaints. - Problem is new. - Symptoms have improved. Signatures: Dispatcher [employer] [facility] Erendira Sumner RN RN aj Lam, Pin, MD MD [facility] Gabriela Church RN RN ss Page, Corey, PA PA cp Ortiz, Alex RN Fito Jose RN RN bp Fito Granados RN bp Corrections: (The following items were deleted from the chart) 19:23 19:12 BASIC METABOLIC PANEL+C.LAB.BRZ ordered. [facility] 20:45 20:43 04/15/2018 20:43 Discharged to Home. Impression: Contusion of right lower leg; cp Other slipping, tripping and stumbling and falls; Diabetes mellitus due to underlying condition with hyperglycemia. Condition is Stable. Forms are Medication Reconciliation Form, Thank You Letter, Antibiotic Education, Prescription Opioid Use. Follow up: Private Physician; When: 1 - 2 days; Reason: Recheck today's complaints. Problem is new. Symptoms have improved. cp 20:58 20:45 04/15/2018 20:43 Discharged to Home. Impression: Contusion of right lower leg - bp and Right Upper Leg; Other slipping, tripping and stumbling and falls; Diabetes mellitus due to underlying condition with hyperglycemia. Condition is Stable. Discharge Instructions: Contusion, Fall Prevention in the Home, Blood Glucose Monitoring, Adult. Forms are Medication Reconciliation Form, Thank You Letter, Antibiotic Education, Prescription Opioid Use. Follow up: Private Physician; When: 1 - 2 days; Reason: Recheck today's complaints. Problem is new. Symptoms have improved. cp
[2018-04-15 21:03] VITALS: BP 133/69; O2SAT 99
--- NOTE | 2018-04-15 21:16 | RAD REPORT ---
EXAM DESCRIPTION: RAD - Femur Right - 04/15/2018 7:51 pm CLINICAL HISTORY: Fall, leg pain COMPARISON: None. FINDINGS: No acute fracture is seen. No dislocation. Degenerative changes are present at the hip erlin nt. Femoral head maintains smooth rounded contour. Hardware is in place from prior fracture repair. N o fracture or alignment abnormality of the hardware. Right hemipelvis shows no acute finding. No periarticular mass or hematoma. Arterial calcifications a re present. No air or foreign body in the soft tissues. IMPRESSION: Degenerative and postsurgical changes are present but no acute bone or hardware finding.
--- NOTE | 2018-04-15 21:17 | RAD REPORT ---
EXAM DESCRIPTION: RAD - Tib Fib Right - 04/15/2018 7:54 pm CLINICAL HISTORY: Fall 2 days earlier, persistent leg pain COMPARISON: January 2017 FINDINGS: No fracture is identified. There is no dislocation or periosteal reaction noted. No acute or suspicious bony finding. No foreign body or other soft tissue abnormality. Small plantar spur is present. IMPRESSION: Negative right tibia & fibula examination for acute finding.
[2018-04-15] MEDS ORDERED: ONDANSETRON 4 MG/2 ML VIAL ONE (21:33)
--- NOTE | 2018-04-16 10:17 | EKG ---
Test Date: 2018-04-15 Test Time: 19:57:21 Customer Account Manager: BRYANT MEASUREMENT RESULTS: Intervals: Rate: 79 UT: 156 QRSD: 82 QT: 368 QTc: 421 [place]: P: 12 UT: 156 QRS: 41 T: 32 INTERPRETIVE STATEMENTS: Normal sinus rhythm borderline criteria for Anterior infarct, age undetermined Abnormal ECG Compared to ECG 02/13/2018 16:41:01 borderline criteria for myocardial infarct now present Electronically Signed On 04-16-18 10:17:00 CDT by Cassius Perea
== END 2018-04-15 20:58 | disposition home or self-care (01) ==
LOC: ER 18:46
DX: S80.11XA Contusion of right lower leg, initial encounter (principal); S70.11XA Contusion of right thigh, initial encounter; E11.65 Type 2 diabetes mellitus with hyperglycemia; W18.09XA Striking against other object with subsequent fall, initial encounter; Y93.89 Activity, other specified; Y92.89 Other specified places as the place of occurrence of the external cause; Z79.4 Long term (current) use of insulin; Z79.82 Long term (current) use of aspirin; Z91.018 Allergy to other foods; F17.210 Nicotine dependence, cigarettes, uncomplicated; I10 Essential (primary) hypertension; I25.2 Old myocardial infarction; F32.9 Major depressive disorder, single episode, unspecified
CPT/HCPCS: 36415; 70450; 72125; 73552; 73590; 80048; 80076; 82140; 82550; 82962 ×2; 83735; 84484; 85025; 85610; 85730; 93005; 96372; 99284; J2405; J7030

== ENCOUNTER 2018-04-29 14:43 | Emergency (ER) | payer MEDICARE ==
--- OUTSIDE RECORDS SUMMARY | 2018-04-29 14:45 | XMS REPORT | Clinical Summary ---
:1965 Author Organization [facility] Address [address] [place] [address] Phone Care Team Providers Name Role Phone [...] 06/24/2017 Anesthesia Event Sly Malloy MD after 04/28/2017 Social History Tobacco Use Types Packs/Day Years [...] Trigger finger of left CDT thumb after 04/28/2017 Results POC-Glucose meter (06/25/2017 2:32 PM)Only the most recent of2 resultswithin the time period is included. Component Value Ref Range POC-Glucose Meter 200 (H)Comment: TESTED AT [address] 70 - 110 mg/[place] [address] Specimen Performing Laboratory Blood [facility] [address] [address] ECG 12 lead (06/25/2017 1:04 PM) Specimen Performing Laboratory GE MUSE Narrative Ventricular Rate 76 BPM Atrial Rate 76 BPM P-R Interval 156 ms QRS Duration 86 ms Q-T Interval 382 ms QTC Calculation(Bazett) 429 ms P [place] 7 degrees R [place] 59 degrees T [place] 28 degrees Normal sinus rhythm Normal ECG No previous ECGs available Confirmed by MD NASSAR CHUNG-SHIN ([id number]) on 07/06/2017 10:28:29 AM Procedure Note Interface, External Ris In - 07/06/2017 10:28 AM CDT Ventricular Rate 76 BPM Atrial Rate 76 BPM P-R Interval 156 ms QRS Duration 86 ms Q-T Interval 382 ms QTC Calculation(Bazett) 429 ms P [place] 7 degrees R [place] 59 degrees T [place] 28 degrees Normal sinus rhythm Normal ECG [...] PATIENTS. Specimen Performing Laboratory Blood - Arm, [address] [address] Glucose (06/25/2017 11:38 AM) Component Value Ref Range Glucose 353 (H) 70 - 105 mg/dL Specimen Performing Laboratory Blood - Arm, [address] [address] Electrolytes (06/25/2017 11:38 AM) Component Value Ref Range Sodium 136 136 - 145 meq/L Potassium 5.4 (H) 3.5 - 5.1 meq/L Chloride 102 98 - 107 meq/L CO2 25 22 - 29 meq/L Specimen Performing Laboratory Blood - Arm, [address] [address] POC-Hemoglobin meter (06/25/2017 11:34 AM) Component Value Ref Range POC-Hemoglobin Meter 12.1Comment: TESTED AT [address] 12.0 - 15.0 g/ dL [facility] [address] Specimen Performing Laboratory Blood [address] [address] POCT , urine (06/25/2017 10:56 AM) Component Value Ref Range Test Urine, POC Negative Control line present?, POC Yes Background clear?, POC Yes UPT Cassette Lot #, POC [id number] UPT Cassette Expiration Date, POC 11/03/18 Specimen Performing Laboratory Urine after 04/28/2017
--- OUTSIDE RECORDS SUMMARY | 2018-04-29 15:42 | XMS REPORT | Continuity of Care Document ---
:1965 Author Organization Interface Problems Problem Status Onset Classification Date Comments Source Date Reported PAIN IN Active 08/13/20 [facility] ABDOMEN/NAUSEA/TI Medical GHTENESS IN [facility] Center BDDC/GASTROESOPHA Active 07/24/20 [facility] GEAL REFLUX [address] [place] [address] DISEASE Center VOMITING Active 07/11/[address] GASTROPARESIS Active 07/11/[address] CHEST PAIN Active 04/02/[address] Center R/O ACS Active 04/02/[address] HYPERGLYCEMIA Active 03/06/20 [facility] DEHYDRATION [address] [place] [address] GASTROPARESIS Center SOB/CHEST PAIN Active 03/06/[address] NASEAU Active 01/11/[address] N/V Active 11/29/[address] VOMITTING, Active 11/29/19 [facility] DIABETIC, HEART [address] [place] [address] PT Center NAUSEA, VOMITTING Active 11/17/[address] ACS R/O AND Active 11/17/19 [facility] PERSISTANT N/V [address] [place] [address] MRSA<sup>1, Active 10/23/19 Problem 11/19/2012 2Problem [facility] </sup><sup>2</sup 13 added by Medical > Discern Center Expert. MRSA<sup>1, 2, 3, Active 10/23/19 Problem 08/15/2013 4Problem [facility] 4</sup> 13 added by Medical Discern Center Expert. MRSA<sup>1, Active 10/23/19 Problem 04/05/2013 4Problem [facility] </sup><sup>2, 13 added by Medical </sup><sup>3, Discern Center </sup><sup>4</sup Expert. 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/22/19 Problem 08/15/2013 [facility] infarction [address] [place] [address] [place] - Myocardial Resolved 10/22/19 Problem 04/05/2013 [facility] infarction [address] [place] [address] DSU/ REFLUX Active 06/13/[address] MORBID OBESITY Active 01/19/[address] Acid reflux Resolved Problem 04/05/2013 [facility] Anemia Resolved Problem 04/05/2013 [facility] Anxiety Resolved Problem 04/05/2013 [facility] Arthritis Resolved Problem 04/05/2013 [facility] Depression Resolved Problem 04/05/2013 [facility] Diabetes mellitus Resolved Problem 04/05/[address] Edema of lower Resolved Problem 04/05/2013 [facility] Fibromyalgia Resolved Problem 04/05/2013 [facility] Hyperlipidemia Resolved Problem 04/05/2013 [facility] Hypertension Resolved Problem 04/05/2013 [facility] Acid reflux Resolved Problem 08/15/2013 [facility] Anemia Resolved Problem 08/15/2013 [facility] Anxiety Resolved Problem 08/15/2013 [facility] Arthritis Resolved Problem 08/15/2013 [facility] Depression Resolved Problem 08/15/2013 [facility] Diabetes mellitus Resolved Problem 08/15/[address] Edema of lower Resolved Problem 08/15/2013 [facility] Fibromyalgia Resolved Problem 08/15/2013 [facility] Gastric ulcer Resolved Problem 08/15/2013 [facility] Hyperlipidemia Resolved Problem 08/15/2013 [facility] Hypertension Resolved Problem 08/15/2013 [facility] Neuropathy Resolved Problem 08/15/2013 [facility] Gastric ulcer Resolved Problem 04/05/2013 [facility] Neuropathy Resolved Problem 04/05/2013 [facility] MORBID OBESITY Active [facility] CHEST PAIN NOS Active [facility] NAUSEA WITH Active [facility] VOMITING [facility] OTHER GENERAL Active [facility] Medications Medication Details Route Status Patient Ordering Order Source Instructions Provider Date Zofran 4 mg 4 mg=1 tab, PO, Active De La Garza [facility] oral tablet BID, # 10 tab, 0 2012 Medical Refill(s) Center Reglan 10 mg 10 mg=1 tab, PO, Active [facility] 08/13[facility] oral tablet QID, # 40 tab, 0 2012 Medical Refill(s) Center IDS med 5 mg, 1 mL, Inactive Ruggiero [facility] Rate: 30 ml/hr, 2012 Medical Infuse [...] mg, 1 mL, Inactive De La Garza [facility] Route: IVPB, 2012 Medical Drug form: INJ, Center ONCE, Dosing Weight 81.818, kg, Priority: STAT, Start date: 08/13/13 13:17:00, Stop date: 08/13/13 13:17:00Do not give IV push. (Same as: Phenergan) Zofran 4 mg, 2 mL, Inactive De [facility] Gar[facility] Route: IVP, Drug 2012 Medical form: INJ, ONCE, Center Dosing Weight 81.818, kg, Priority: STAT, Start date: 08/13/13 12:41:00, Stop date: 08/13/13 12:41:00(Same as: Zofran) morphine 4 mg, 1 mL, Inactive De La Garza [facility] Sulfate Route: IVP, Drug 2012 Medical [...] 10 mg 10 mg, 1 tab, Inactive [facility] oral tablet Route: PO, Drug 2012 Medical form: TAB, Center TID-Before Meals, Dosing Weight 86.364, kg, Start date: 07/14/13 11:30:00, Duration: 30 day, Stop date: 08/13/13 7:30:00(Same as: Reglan) Take 30 min before meals Levemir 15 unit, 0.15 No Longer [facility] mL, Route: Active 2012 Medical SUB-Q, Drug Center form: INJ, BID, Dosing Weight 86.364, kg, Start date: 07/13/13 21:00:00, Duration: 30 day, Stop date: 08/12/13 9:00:00Same as Levemir "single patient use only" pneumococcal 0.5 ml, Route: No Longer SYSTEM 07/13[facility] 23-valent IM, Drug Form: Active 2012 Medical vaccine INJ, Start date: [place] 07/13/13 9:00:00, Stop date: 07/13/13 9:00:00 influenza virus 0.5 ml, Route: No Longer SYSTEM 07/13[facility] vaccine, IM, Drug Form: Active 2012 Medical inactivated SUSP, Start Center date: 07/13/13 9:00:00, Stop date: 07/13/13 9:00:00 lisinopril 20 mg, 1 tab, No Longer [facility] 07/13[facility] Route: PO, Drug Active 2012 Medical form: TAB, Center Daily, Dosing Weight 86.364, kg, Start date: 07/13/13 9:00:00, Duration: 30 day, Stop date: 08/11/13 9:00:00(Same as: Prinivil, Zestril) metoprolol 50 mg, Route: No Longer [facility] tartrate PO, Drug form: Active 2012 Medical TAB, Daily, Center Dosing Weight 86.364, kg, Start date: 07/13/13 9:00:00, Duration: 30 day, Stop date: 08/11/13 9:00:00 Lyrica 150 mg, 2 cap, No Longer [facility] Route: PO, Drug Active 2012 Medical form: CAP, BID, Center Dosing Weight 86.364, kg, Start date: 07/13/13 9:00:00, Duration: 30 day, Stop date: 08/11/13 17:00:00(Same as: Lyrica) potassium 20 mEq, 1 tab, No Longer [facility] [place] chloride Route: PO, Drug Active 2012 Medical form: ERTAB, Center Daily, Dosing Weight 86.364, kg, Start date: 07/13/13 9:00:00, Duration: 30 day, Stop date: 08/11/13 9:00:00(Same as: K-Dur 20) "Do Not Crush" With food and full glass of water Effient 10 mg, 1 tab, No Longer [facility] Route: PO, Drug Active 2012 Medical form: TAB, Center Daily, Dosing Weight 86.364, kg, Start date: 07/13/13 9:00:00, Duration: 30 day, Stop date: 08/11/13 9:00:00Same as Effient For patients 60kg, without history of TIA/Ischemic stroke and without likely bypass surgery Protonix 40 mg, 1 tab, No Longer [facility] [place] Route: PO, Drug Active 2012 Medical form: [...] oxide 400 mg, 1 tab, No Longer [facility] Route: PO, Drug Active 2012 Medical form: TAB, Center Daily, Dosing Weight 86.364, kg, Start date: 07/13/13 9:00:00, Duration: 30 day, Stop date: 08/11/13 9:00:00(Same as: Mag-Ox 400) Magnesium oxide [id number] elemental magnesium Dose=____mg magnesium oxide (___mg elemental magnesium) furosemide 40 40 mg, 1 tab, No Longer [facility] mg oral tablet Route: PO, Drug Active 2012 Medical form: TAB, Center Daily, Dosing Weight 86.364, kg, Start date: 07/13/13 9:00:00, Duration: 30 day, Stop date: 08/11/13 9:00:00(Same as: Lasix) May cause GI upset. Give with food or milk. ferrous sulfate 325 mg, 1 tab, No Longer [facility] [place] Route: PO, Drug Active 2012 Medical form: ECTAB, Center TID, Dosing Weight 86.364, kg, Start date: 07/13/13 9:00:00, Duration: 30 day, Stop date: 08/11/13 17:00:00Give with food. "Do Not Crush" clonazepam 0.5 mg, 1 tab, No Longer [facility] Route: PO, Drug Active 2012 Medical form: TAB, TID, Center Dosing Weight 86.364, kg, Start date: 07/13/13 9:00:00, Duration: 30 day, Stop date: 08/11/13 17:00:00(Same As: Klonopin) Insulin regular 5 unit, 0.05 mL, No Longer [facility] Route: SUB-Q, Active 2012 Medical Drug [...] 10 mg, 2 mL, No Longer [facility] Route: IVP, Drug Active 2012 Medical form: INJ, Q6H, Center Dosing Weight 86.364, kg, Start date: 07/13/13 0:00:00, Duration: 30 day, Stop date: 08/11/13 18:00:00(Same as: Reglan) normal saline 1,000 mL, Rate: No Longer [facility] 0.9% IV 1,000 200 ml/hr, Active 2012 Medical mL Infuse over: 5 Center hr, Route: IV, Dosing Weight 86.364 kg, Total Volume: 1,000, Start date: 07/12/13 21:08:00, Duration: 3 doses or times, Stop date: 07/13/13 12:07:00 metoprolol 50 mg, 1 tab, No Longer [facility] tartrate Route: PO, Drug Active 2012 Medical form: TAB, Q12H, Center Dosing Weight 86.364, kg, Start date: 07/12/13 21:00:00, Duration: 30 day, Stop date: 08/11/13 9:00:00(Same as: Lopressor) Levemir 12 unit, 0.12 No Longer [facility] mL, Route: Active 2012 Medical SUB-Q, Drug Center form: INJ, BID, Dosing Weight 86.364, kg, Start date: 07/12/13 21:00:00, Duration: 30 day, Stop date: 08/11/13 9:00:00Same as Levemir "single patient use only" Cymbalta 120 mg, 2 cap, No Longer [facility] Route: PO, Drug Active 2012 Medical form: DR, [place] Bedtime, Dosing Weight 86.364, kg, Start date: 07/12/13 21:00:00, Duration: 30 day, Stop date: 08/10/13 21:00:00Non Formulary Drug (Same as: Cymbalta) (Do Not Crush) ProAir HFA 90 2 puff, Route: No Longer [facility] mcg/inh INHALATION, Drug Active 2012 Medical inhalation Form: AERO/A, Center aerosol with Dosing Weight adapter 86.364, kg, QID, PRN Shortness of breath, Start date: 07/12/13 20:09:00, Duration: 30 day, Stop date: 08/11/13 20:08:00Albutero l 90 microgram/inh 8gm HFA Same as: VentAlessio marrerotil aspirin 81 mg 81 mg, 1 tab, No Longer [facility] [place] tablet, enteric Route: PO, Drug Active 2012 Medical coated form: ECTAB, [place] Daily, Dosing Weight 86.364, kg, Start date: 07/12/13 20:00:00, Duration: 30 day, Stop date: 08/11/13 9:00:00Do not crush or chew. (Same As: Ecotrin) glucagon 1 mg, Route: IM, No Longer [facility] Drug form: Active 2012 Medical PDR/INJ, PRN, Center Dosing Weight 86.364, kg, PRN Blood Glucose Results, Start date: 07/12/13 18:26:00, Duration: 30 day, Stop date: 08/11/13 18:25:00 Dextrose 50% 12.5 gm, 25 mL, No Longer [facility] Syringe Route: IVP, Drug Active 2012 Medical Form: INJ, Center Dosing Weight 86.364, kg, PRN, PRN Blood Glucose Results, Start date: 07/12/13 18:26:00, Duration: 30 day, Stop date: 08/11/13 18:25:00 insulin aspart 4 unit, 0.04 mL, No Longer [facility] Route: SUB-Q, Active 2012 Medical Drug form: SOLN, [place] TID-Before Meals, Dosing Weight 86.364, kg, PRN Blood Glucose Results, Start date: 07/12/13 18:26:00, Duration: 30 day, Stop date: 08/11/13 18:25:00Roll in palms of hands gently; Do not shake vigorously. (Same as: NovoLog) "single patient use only" Stable for 28 days at room temperature. Expires in days from Da te tramadol 50 mg 50 mg, 1 tab, No Longer [facility] oral tablet Route: PO, Drug Active 2012 Medical form: TAB, Q4H, Center Dosing Weight 86.364, kg, PRN as needed for pain, Start date: 07/12/13 18:24:00, Duration: 30 day, Stop date: 08/11/13 18:23:00Not to exceed 400mg/day. (Same As: Ultram) acetaminophen-h 1 tab, Route: No Longer [facility] [place] ydrocodone 325 PO, Drug Form: Active 2012 Medical mg-5 mg oral TAB, Dosing Center tablet Weight 86.364, kg, Q4H, PRN Pain, Start date: 07/12/13 18:23:00, Duration: 30 day, Stop date: 08/11/13 18:22:00(Same as: [place] 325/5) Do not exceed 4gm/day of acetaminophen. Flexeril 10 mg, 1 tab, No Longer [facility] Route: PO, Drug Active 2012 Medical form: TAB, TID, Center Dosing Weight 86.364, kg, PRN Spasm, Start date: 07/12/13 18:23:00, Duration: 30 day, Stop date: 08/11/13 18:22:00(Same As: Flexeril) benzonatate 100 mg, 1 cap, No Longer [facility] Route: PO, Drug Active 2012 Medical form: CAP, TID, Center Dosing Weight 86.364, kg, PRN as needed for cough, Start date: 07/12/13 18:23:00, Duration: 30 day, Stop date: 08/11/13 18:22:00(Same As: Oleksandr Francis) "Do Not Crush" Saline Flush 5 ml, Route: No Longer [facility] 0.9% IVP, Drug Form: Active 2012 Medical INJ, Dosing Center Weight 86.364, kg, PRN, PRN Line Flush, Start date: 07/12/13 18:22:00, Duration: 30 day, Stop date: 08/11/13 18:21:00(Same as: BD Posiflush) ondansetron 4 mg, 2 mL, No Longer [facility] Route: IVP, Drug Active 2012 Medical form: INJ, Q8H, Center Dosing Weight 86.364, kg, PRN Nausea & Vomiting, Start date: 07/12/13 18:22:00, Duration: 30 day, Stop date: 08/11/13 18:21:00(Same as: Zofran) aspirin 81 mg 81 mg, 1 tab, Active [facility] tablet, enteric PO, Daily, 0 2012 Medical coated tab, Center Substitution Allowed, ECTAB Klor-Con M20 20 mEq, 1 tab, No Longer [facility] oral tablet, PO, Daily, 180 Active 2012 Medical extended tab, Center release Substitution Allowed, ERTAB furosemide 40 40 mg, 1 tab, No Longer [facility] mg oral tablet PO, Daily, 30 Active 2012 Medical tab, Center Substitution Allowed, TAB benzonatate 100 PO, TID, PRN, 1 Active [facility] mg oral capsule to 2 tabs, prn, 2012 Medical Substitution Center Allowed1 to 2 tabs metoprolol 50 mg, 1 tab, No Longer [facility] tartrate 50 mg PO, Daily, 180 Active 2012 Medical oral tablet tab, Center Substitution Allowed, TAB Reglan 10 mg, 2 mL, Inactive [facility] 07/12[facility] Route: IVP, Drug 2012 Medical form: INJ, ONCE, Center Dosing Weight 86.364, kg, Priority: STAT, Start date: 07/12/13 12:12:00, Stop date: 07/12/13 12:12:00(Same as: Reglan) Zofran 4 mg, Route: Inactive [facility] 07/12[facility] IVP, Drug form: 2012 Medical INJ, ONCE, Center Dosing Weight 86.364, kg, Priority: STAT, Start date: 07/12/13 10:52:00, Stop date: 07/12/13 10:52:00 morphine 4 mg, Route: Inactive [facility] 07/12[facility] Sulfate IVP, Drug form: 2012 Medical INJ, ONCE, Center Dosing Weight 86.364, kg, Priority: STAT, Start date: 07/12/13 10:51:00, Stop date: 07/12/13 10:51:00 Zofran 4 mg, 2 mL, Inactive [facility] 07/12[facility] Route: IVP, Drug 2012 Medical form: [...] Stop date: 07/12/13 11:05:00, Bolus DoseBolus Dose [place] 5/325 1 tab, Route: Inactive Cl[facility] [...] Levemir 10 unit, 0.1 mL, Inactive [facility] 07/12[facility] Fei Route: SUB-Q, 2012 Medical Drug form: INJ, Center ONCE, Dosing Weight 86.364, kg, Start date: 07/12/13 4:20:00, Stop date: 07/12/13 4:20:00Same as Levemir "single patient use only" Omnipaque 100 mL, Route: Inactive [facility] Fei 350mg/ml IVP, Drug Form: 2012 Medical SOLN, Dosing Center Weight 86.364, kg, ONCALL, STAT, Start date: 07/12/13 4:18:00, Duration: 1 doses or times, Dose=2.2ml/kg, Max xald=[id number] -- "To be infused by Radiology Staff ONLY"Dose=2.2ml/ kg, Max cdth=[id number] -- "To be infused by Radiology Staff [...] mg, 1 tab, PO No Longer [facility] Route: PO, Drug Active 2012 Medical form: TAB, Center Daily, Dosing Weight 90, kg, Start date: 04/03/13 9:00:00, Duration: 30 day, Stop date: 05/02/13 9:00:00 Lyrica 150 mg, 2 cap, PO No Longer [facility] Route: PO, Drug Active 2012 Medical form: CAP, BID, Center Dosing Weight 90, kg, Start date: 04/03/13 9:00:00, Duration: 30 day, Stop date: 05/02/13 17:00:00 Protonix 40 mg, 1 tab, PO No Longer [facility] Route: PO, Drug Active 2012 Medical form: ECTAB, Center BID, Dosing Weight 90, kg, Start date: 04/03/13 9:00:00, Duration: 30 day, Stop date: 05/02/13 17:00:00 metoclopramide 10 mg, 1 tab, PO No Longer [facility] 10 mg oral Route: PO, Drug Active 2012 Medical tablet form: TAB, TID, Center Dosing Weight 90, kg, Start date: 04/03/13 9:00:00, Duration: 30 day, Stop date: 05/02/13 17:00:00 meloxicam 7.5 mg, 1 tab, PO No Longer [facility] Route: PO, Drug Active 2012 Medical form: TAB, BID, Center Dosing Weight 90, kg, Priority: Routine, Start date: 04/03/13 9:00:00, Duration: 30 day, Stop date: 05/02/13 17:00:00 lisinopril 20 mg, Route: PO No Longer [facility] PO, Drug form: Active 2012 Medical [...] unit, 0.06 mL, SUB-Q No Longer [facility] Route: SUB-Q, Active 2012 Medical Drug [...] mg, 1 cap, PO No Longer [facility] Route: PO, Drug Active 2012 Medical form: DRC, Center Bedtime, Dosing Weight 90, kg, Start date: 04/02/13 21:00:00, Duration: 30 day, Stop date: 05/01/13 21:00:00 magnesium oxide 400 mg, 1 tab, PO No Longer [facility] Route: PO, Drug Active 2012 Medical form: TAB, Center Daily, Dosing Weight 90, kg, Priority: NOW, Start date: 04/02/13 20:45:00, Duration: 30 day, Stop date: 05/02/13 9:00:00 Levemir 12 unit, 0.12 SUB-Q No Longer [facility] mL, Route: Active 2012 Medical SUB-Q, Drug Center form: INJ, BID, Dosing Weight 90, kg, Start date: 04/02/13 20:45:00, Duration: 30 day, Stop date: 05/02/13 17:00:00 hydrALAZINE 10 mg, 0.5 mL, IVP No Longer [facility] Route: IVP, Drug Active 2012 Medical form: INJ, Q4H, Center Dosing Weight 90, kg, PRN Hypertension, Start date: 04/02/13 20:37:00, Duration: 30 day, Stop date: 05/02/13 20:36:00 lisinopril 20 mg, 1 tab, PO No Longer [facility] Route: PO, Drug Active 2012 Medical form: TAB, Center Daily, Dosing Weight 90, kg, Start date: 04/02/13 20:30:00, Duration: 30 day, Stop date: 05/02/13 9:00:00 metoprolol 12.5 mg, 1 ea, PO No Longer [facility] tartrate Route: PO, Drug Active 2012 Medical form: TAB, BID, Center Dosing Weight 90, kg, Start date: 04/02/13 20:30:00, Duration: 30 day, Stop date: 05/02/13 17:00:00 insulin aspart 8 unit, 0.08 mL, SUB-Q No Longer [facility] Route: SUB-Q, Active 2012 Medical Drug form: SOLN, Center TID-Before Meals, Dosing Weight 90, kg, PRN Blood Glucose Results, Start date: 04/02/13 20:30:00, Duration: 30 day, Stop date: 05/02/13 20:29:00 glucagon 1 mg, Route: IM, IM No Longer [facility] Drug form: Active 2012 Medical PDR/INJ, PRN, Center Dosing Weight 90, kg, PRN Blood Glucose Results, Start date: 04/02/13 20:30:00, Duration: 30 day, Stop date: 05/02/13 20:29:00 Dextrose 50% 25 gm, 50 mL, IVP No Longer [facility] Syringe Route: IVP, Drug Active 2012 Medical Form: INJ, Center Dosing Weight 90, kg, PRN, PRN Blood Glucose Results, Start date: 04/02/13 20:30:00, Duration: 30 day, Stop date: 05/02/13 20:29:00 Insulin regular 8 unit, Route: SUB-Q No Longer [facility] SUB-Q, Active 2012 Medical TID-Before Center Meals, Dosing Weight 90, kg, PRN Blood Glucose Results, Start date: 04/02/13 20:29:00, Duration: 30 day, Stop date: 05/02/13 20:28:00 glucagon 1 mg, Route: IM, IM No Longer [facility] PRN, Dosing Active 2012 Medical Weight 90, kg, Center PRN Blood Glucose Results, Start date: 04/02/13 20:29:00, Duration: 30 day, Stop date: 05/02/13 20:28:00 Dextrose 50% 50 mL, Route: IVP No Longer [facility] Syringe IVP, Dosing Active 2012 Medical Weight 90, kg, Center PRN, PRN Blood Glucose Results, Start date: 04/02/13 20:29:00, Duration: 30 day, Stop date: 05/02/13 20:28:00 Zofran 4 mg, 2 mL, IV No Longer [facility] Route: IV, Drug Active 2012 Medical form: INJ, Q8H, Center Dosing Weight 90, kg, PRN Nausea, Start date: 04/02/13 20:29:00, Duration: 30 day, Stop date: 05/02/13 20:28:00 Maalox Advanced 30 mL, Route: PO No Longer [facility] Regular PO, Drug Form: Active 2012 Medical Strength SUSP SUSP, Dosing Center Weight 90, kg, QID, PRN Indigestion, Start date: 04/02/13 20:28:00, Duration: 30 day, Stop date: 05/02/13 20:27:00 Flexeril 10 mg, 1 tab, PO No Longer [facility] Route: PO, Drug Active 2012 Medical form: TAB, TID, Center Dosing Weight 90, kg, PRN Spasm, Start date: 04/02/13 20:22:00, Duration: 30 day, Stop date: 05/02/13 20:21:00 acetaminophen-h 1 tab, Route: PO No Longer [facility] ydrocodone 325 PO, Drug Form: Active 2012 Medical mg-5 mg oral TAB, Dosing Center tablet Weight 90, kg, Q4H, PRN Pain, Start date: 04/02/13 20:22:00, Duration: 30 day, Stop date: 05/02/13 20:21:00 Phenergan 12.5 mg, 0.5 mL, IVPB No Longer [facility] Route: IVPB, Active 2012 Medical Drug form: INJ, Center ONCE, Dosing Weight 90, kg, Start date: 04/02/13 20:11:00, Stop date: 04/02/13 20:11:00 morphine 4 mg, 1 mL, IVP No Longer Mitch [facility] Sulfate Route: IVP, Drug Active 2012 Medical form: INJ, ONCE, Center Dosing Weight 90, kg, Start date: 04/02/13 20:10:00, Stop date: 04/02/13 20:10:00 Phenergan 12.5 mg, 0.5 mL, IVPB No Longer Zhang [facility] Route: IVPB, Active 2012 Medical Drug form: INJ, Center ONCE, Dosing Weight 90, kg, Priority: STAT, Start date: 04/02/13 17:11:00, Stop date: 04/02/13 17:11:00 Zofran 4 mg, 2 mL, IVP No Longer Zhang [facility] Route: IVP, Drug Active 2012 Medical form: INJ, ONCE, Center Dosing Weight 90, kg, Priority: STAT, Start date: 04/02/13 16:52:00, Stop date: 04/02/13 16:52:00 nitroglycerin 0.4 mg, 1 tab, SL No Longer K[facility] Route: SL, Drug Active 2012 Medical form: TAB, Center Q5Min, Dosing Weight 90, kg, PRN Chest Pain, Priority: STAT, Start date: 04/02/13 16:31:00, Duration: 3 doses or times, Stop date: Limited # of times aspirin 325 mg, 1 tab, PO No Longer [facility] Route: PO, Drug Active 2012 Medical form: ECTAB, Center ONCE, Dosing Weight 90, kg, Priority: STAT, Start date: 04/02/13 16:31:00, Stop date: 04/02/13 16:31:00 morphine 4 mg, 1 mL, IVP No Longer Kiki [facility] Sulfate Route: IVP, Drug Active 2012 Medical form: INJ, ONCE, Center Dosing Weight 90, kg, Start date: 04/02/13 16:30:00, Stop date: 04/02/13 16:30:00 erythromycin 1 cap, PO, Q12H, PO Active [facility] [place] 250 mg oral 14 cap, 2012 Medical enteric coated Substitution Center tablet Allowed, ECTAB GI cocktail 30 ml, Route: PO No Longer [facility] PO, Drug Form: Active 2012 Medical [...] gm, 50 mL, IVPB No Longer [facility] sulfate Route: IVPB, Active 2012 Medical Drug form: INJ, Center Q2H, Dosing Weight 90, kg, Total Dose=4 gm, Start date: 03/08/13 12:00:00, Duration: 2 doses or times, Stop date: 03/08/13 14:00:00, For Mg=1.5 - 1.7 mg/dLFor Mg=1.5 - 1.7 mg/dL insulin aspart 5 unit, 0.05 mL, SUB-Q No Longer [facility] Route: SUB-Q, Active 2012 Medical Drug form: SOLN, [place] ONCE, Dosing Weight 90, kg, Start date: 03/08/13 3:17:00, Stop date: 03/08/13 3:17:00 Zocor 40 mg, 1 tab, PO No Longer [facility] Route: PO, Drug Active 2012 Medical form: TAB, Center Bedtime, Dosing Weight 90, kg, Start date: 03/07/13 21:00:00, Duration: 30 day, Stop date: 04/05/13 21:00:00 Cymbalta 120 mg, 2 cap, PO No Longer [facility] Route: PO, Drug 2012 Medical form: [...] unit, 0.1 mL, SUB-Q No Longer [facility] Route: SUB-Q, Active 2012 Medical Drug form: SOLN, Center ONCE, Dosing Weight 90, kg, Start date: 03/07/13 19:16:00, Stop date: 03/07/13 19:16:00 Lyrica 150 mg, 2 cap, PO No Longer [facility] Route: PO, Drug Active 2012 Medical form: CAP, BID, Center Dosing Weight 90, kg, Start date: 03/07/13 17:00:00, Duration: 30 day, Stop date: 04/06/13 9:00:00 Protonix 40 mg, 1 tab, PO No Longer [facility] Route: PO, Drug Active 2012 Medical form: ECTAB, Center BID, Dosing Weight 90, kg, Start date: 03/07/13 17:00:00, Duration: 30 day, Stop date: 04/06/13 9:00:00 meloxicam 7.5 mg, 1 tab, PO No Longer [facility] Route: PO, Drug Active 2012 Medical form: TAB, Center BID-Meals, Dosing Weight 90, kg, Start date: 03/07/13 17:00:00, Duration: 30 day, Stop date: 04/06/13 8:00:00 Flexeril 10 mg, 1 tab, PO No Longer [facility] Route: PO, Drug Active 2012 Medical form: TAB, BID, Center Dosing Weight 90, kg, Start date: 03/07/13 17:00:00, Duration: 30 day, Stop date: 04/06/13 9:00:00 NovoLog FlexPen 6 unit, 0.06 mL, SUB-Q No Longer [facility] Route: SUB-Q, Active 2012 Medical Drug [...] mg, 1 tab, PO No Longer [facility] Route: PO, Drug Active 2012 Medical form: TAB, Center Daily, Dosing Weight 90, kg, Start date: 03/07/13 13:30:00, Duration: 30 day, Stop date: 04/06/13 9:00:00 magnesium oxide 400 mg, 1 tab, PO No Longer [facility] Route: PO, Drug Active 2012 Medical form: TAB, Center Daily, Dosing Weight 90, kg, Start date: 03/07/13 13:30:00, Duration: 30 day, Stop date: 04/06/13 9:00:00 lisinopril 20 mg, 1 tab, PO No Longer [facility] Route: PO, Drug Active 2012 Medical form: TAB, Center Daily, Dosing Weight 90, kg, Start date: 03/07/13 13:30:00, Duration: 30 day, Stop date: 04/06/13 9:00:00 Reglan 5 mg, 1 tab, PO No Longer [facility] Route: PO, Drug Active 2012 Medical form: TAB, TID, Center Dosing Weight 90, kg, Start date: 03/07/13 13:00:00, Duration: 30 day, Stop date: 04/06/13 9:00:00 ferrous sulfate 325 mg, 1 tab, PO No Longer [facility] Route: PO, Drug Active 2012 Medical form: ECTAB, Center TID, Dosing Weight 90, kg, Start date: 03/07/13 13:00:00, Duration: 30 day, Stop date: 04/06/13 9:00:00 clonazepam 0.5 mg, 1 tab, PO No Longer [facility] Route: PO, Drug Active 2012 Medical form: TAB, TID, Center Dosing Weight 90, kg, Start date: 03/07/13 13:00:00, Duration: 30 day, Stop date: 04/06/13 9:00:00 NovoLog 6 unit, SUB-Q, SUB-Q No Longer [place] TID-Before Active 2012 Medical Meals, Center Substitution Allowed Levemir 12 unit, SUB-Q, SUB-Q Active [place] BID, 2012 Medical Substitution Center Allowed NS 1,000 mL 1,000 mL, Rate: IV No Longer [facility] [place] 125 ml/hr, Active 2012 Medical Infuse over: 8 Center hr, Route: IV, Dosing Weight 90 kg, Total Volume: 1,000, Start date: 03/07/13 12:19:00, Duration: 30 day, Stop date: 04/06/13 12:18:00 insulin aspart 2 unit, 0.02 mL, SUB-Q No Longer [facility] [place] Route: SUB-Q, Active 2012 Medical Drug form: [facility] TID-Before Meals, Dosing Weight 90, kg, PRN Blood Glucose Results, Start date: 03/07/13 11:55:00, Duration: 30 day, Stop date: 04/06/13 11:54:00 glucagon 1 mg, Route: IM, IM No Longer [facility] [place] Drug form: Active 2012 Medical PDR/INJ, PRN, Center Dosing Weight 90, kg, PRN Blood Glucose Results, Start date: 03/07/13 11:55:00, Duration: 30 day, Stop date: 04/06/13 11:54:00 Dextrose 50% 12.5 gm, 25 mL, IVP No Longer [facility] [place] Syringe Route: IVP, Drug Active 2012 Medical Form: INJ, Center Dosing Weight 90, kg, PRN, PRN Blood Glucose Results, Start date: 03/07/13 11:55:00, Duration: 30 day, Stop date: 04/06/13 11:54:00 Phenergan 12.5 mg, 0.5 mL, IVPB No Longer [facility] [place] Route: IVPB, Active 2012 Medical Drug form: INJ, Center Q4H, Dosing Weight 90, kg, PRN Nausea & Vomiting, Start date: 03/07/13 11:53:00, Duration: 30 day, Stop date: 04/06/13 11:52:00 albuterol 2.49 mg, 3 mL, NEB No Longer [facility] [place] 0.083% Route: NEB, Drug Active 2012 Medical inhalation form: SOLN, Center solution RQ4H, Dosing Weight 90, kg, PRN as needed for wheezing, Start date: 03/07/13 11:53:00, Duration: 30 day, Stop date: 04/06/13 11:52:00 Zofran 4 mg, 2 mL, IVP No Longer [facility] Route: IVP, Drug Active 2012 Medical form: INJ, Q4H, Center Dosing Weight 90, kg, PRN Nausea, Start date: 03/07/13 11:53:00, Duration: 30 day, Stop date: 04/06/13 11:52:00 acetaminophen-h 1 tab, Route: PO No Longer [facility] ydrocodone 325 PO, Drug Form: Active 2013 Medical mg-10 mg oral TAB, Dosing Center tablet Weight 90, kg, Q4H, PRN Pain Score 4-6, Start date: 03/07/13 11:51:00, Duration: 30 day, Stop date: 04/06/13 11:50:00 acetaminophen-h 1 tab, Route: PO No Longer [facility] ydrocodone 325 PO, Drug Form: Active 2013 Medical mg-5 mg oral TAB, Dosing Center tablet Weight 90, kg, Q4H, PRN Pain Score 1-3, Start date: 03/07/13 11:51:00, Duration: 30 day, Stop date: 04/06/13 11:50:00 acetaminophen 650 mg, 2 tab, PO No Longer [facility] Route: PO, Drug Active 2012 Medical form: TAB, Q4H, Center Dosing Weight 90, kg, PRN Pain 1-3/Temp > 100.4 F, Start date: 03/07/13 11:51:00, Duration: 30 day, Stop date: 04/06/13 11:50:00 morphine 2 mg, 1 mL, IVP No Longer [facility] 03/07[facility] Sulfate Route: IVP, Drug Active 2012 Medical form: INJ, Q4H, Center Dosing Weight 90, kg, PRN Pain Score 7-10, Start date: 03/07/13 11:51:00, Duration: 30 day, Stop date: 04/06/13 11:50:00 docusate 100 mg, 1 cap, PO No Longer [facility] 07/02[facility] Route: PO, Drug Active 2012 Medical form: CAP, BID, Center Dosing Weight 90, kg, PRN Constipation, Start date: 03/07/13 11:51:00, Duration: 30 day, Stop date: 04/06/13 11:50:00 Levemir 12 unit, 0.12 SUB-Q No Longer [facility] mL, Route: Active 2012 Medical SUB-Q, Drug Center form: INJ, ONCE, Dosing Weight 90, kg, Start date: 03/07/13 6:10:00, Stop date: 03/07/13 6:10:00 lidocaine-epi 1 ml, Route: SUB-Q No Longer [facility] [id number] SUB-Q, Drug Active 2012 Medical Form: SOLN, Center Dosing Weight 90, kg, ONCE, STAT, Start date: 03/07/13 5:18:00, Stop date: 03/07/13 5:18:00 Insulin regular 99 mL, Rate: IVPB No Longer [facility] 100 unit + Start Insulin Active [...] gm, 25 mL, IVP No Longer [facility] Syringe Route: IVP, Drug Active 2012 Medical Form: INJ, Center Dosing Weight 90, kg, PRN, PRN Blood Glucose Results, Start date: 03/07/13 5:13:00, Duration: 30 day, Stop date: 04/06/13 5:12:00 NS (Bolus) IV 1,000 mL, Rate: IV No Longer [facility] 1,000 mL 1,000 ml/hr, Active 2012 [...] unit, 0.1 mL, SUB-Q No Longer [facility] [place] Route: SUB-Q, 2012 Medical Drug form: SOLN, Center ONCE, Dosing Weight 90, kg, Priority: STAT, Start date: 03/07/13 2:16:00, Stop date: 03/07/13 2:16:00 Reglan 10 mg, 2 mL, IVP No Longer [facility] [place] Route: IVP, Drug 2012 Medical form: INJ, ONCE, Center Dosing Weight 90, kg, Priority: STAT, Start date: 03/07/13 2:16:00, Stop date: 03/07/13 2:16:00 NS 1,000 mL 1,000 mL, Rate: IV No Longer [facility] [place] 150 ml/hr, 2012 Medical Infuse over: 6.7 Center hr, Route: IV, Dosing Weight 90 kg, Total Volume: 1,000, Start date: 03/07/13 2:15:00, Duration: 30 day, Stop date: 04/06/13 2:14:00 droperidol 1.25 mg, Route: IVP No Longer [facility] IVP, ONCE, 2012 Medical Dosing Weight Center 90, kg, PRN Nausea & Vomiting, Start date: 03/07/13 0:48:00 D5W 1/2NS 1,000 1,000 mL, Rate: IV No Longer [facility] [place] mL 125 ml/hr, 2012 Medical Infuse over: 8 Center hr, Route: IV, Dosing Weight 90 kg, Total Volume: 1,000, Start date: 03/07/13 0:43:00, Duration: 30 day, Stop date: 04/06/13 0:42:00 Insulin regular 4 unit, 0.04 mL, SUB-Q No Longer [facility] [place] Route: SUB-Q, Active 2012 Medical Drug form: SOLN, Center Sliding Scale, Dosing Weight 90, kg, PRN Blood Glucose Results, Start date: 03/07/13 0:01:00, Duration: 30 day, Stop date: 04/06/13 0:00:00 glucagon 1 mg, Route: IM, IM No Longer [facility] [place] Drug form: Active 2012 Medical PDR/INJ, PRN, Center Dosing Weight 90, kg, PRN Blood Glucose Results, Start date: 03/07/13 0:01:00, Duration: 30 day, Stop date: 04/06/13 0:00:00 Dextrose 50% 25 gm, 50 mL, IVP No Longer [facility] [place] Syringe Route: IVP, Drug Active 2012 Medical Form: INJ, Center Dosing Weight 90, kg, PRN, PRN Blood Glucose Results, Start date: 03/07/13 0:01:00, Duration: 30 day, Stop date: 04/06/13 0:00:00 NS 1,000 mL 1,000 mL, Rate: IV No Longer [facility] [place] 125 ml/hr, 2012 Medical Infuse over: 8 Center hr, Route: IV, Dosing Weight 90 kg, Total Volume: 1,000, Start date: 03/06/13 23:21:00, Duration: 30 day, Stop date: 04/05/13 23:20:00 NS (Bolus) IV 1,000 mL, Rate: IV No Longer [facility] [place] 1,000 mL 1,000 ml/hr, 2012 Medical Infuse over: 1 Center hr, Route: IV, Dosing Weight 90 kg, Total Volume: 1,000, Priority: STAT, Start date: 03/06/13 23:21:00, Duration: 1 doses or times, Stop date: 03/07/13 0:20:00, Bolus DoseBolus Dose [place] 5/325 1 tab, PO, Q6H, PO No Longer [place] oral tablet PRN, 30 tab, Active 2012 Medical Substitution Center Allowed, Maintenance ferrous sulfate 325 mg, 1 tab, PO Active [facility] 325 mg oral PO, TID, 30 tab, 2012 Medical enteric coated Substitution Center tablet Allowed, ECTAB acetaminophen-h 1 tab, PO, Q4H, PO Active [facility] ydrocodone 500 PRN, for pain, 2012 Medical mg-7.5 mg oral Substitution Center tablet Allowed, Maintenance, TAB meloxicam 7.5 7.5 mg, 1 tab, PO Active [place] 03/07[facility] mg oral tablet PO, BID, WITH 2012 Medical FOOD, 30 tab, Center Substitution Allowed, TABWITH FOOD Zocor 40 mg 40 mg, 1 tab, PO Active [place] 03/07[facility] oral tablet PO, Bedtime, 30 2012 Medical tab, Center Substitution Allowed, Maintenance ProAir HFA 90 Substitution Active [facility] mcg/inh Allowed, 2012 Medical inhalation Maintenance Center aerosol with adapter Flexeril 10 mg 10 mg, 1 tab, PO Active [place] [facility] oral tablet PO, TID, PRN, 30 2012 Medical tab, for spasm, Center Substitution Allowed, TAB Protonix 40 mg 40 mg, 1 tab, PO Active [place] [facility] oral enteric PO, BID, 30 tab, 2012 Medical coated tablet Substitution Center Allowed, ECTAB Lyrica 150 mg 150 mg, 1 cap, PO Active [place] [facility] oral capsule PO, BID, 90 cap, 2012 [facility] Substitution [place] Allowed, CAP Flagyl 500 mg 500 mg, 1 tab, PO No Longer [facility] oral tablet PO, Q6H, 30 tab, Active 2012 [facility] Substitution [place] Allowed metoclopramide 10 mg, 1 tab, PO Active [place] [facility] 10 mg oral PO, TID, 56 [...] mg, 1 mL, IVP No Longer [facility] Sulfate Route: IVP, Drug Active 2012 Medical form: INJ, ONCE, Center Dosing Weight 90, kg, Start date: 03/06/13 21:27:00, Stop date: 03/06/13 21:27:00 Phenergan 12.5 mg, 0.5 mL, IVPB No Longer [facility] Route: IVPB, Active 2012 Medical Drug form: INJ, Center ONCE, Dosing Weight 90, kg, Priority: STAT, Start date: 03/06/13 21:26:00, Stop date: 03/06/13 21:26:00 ergocalciferol 50,000 IntlUnit, PO No Longer [facility] 1 cap, Route: Active 2012 Medical PO, Drug form: Center CAP, qWeek, Dosing Weight 100, kg, Start date: 12/07/12 9:00:00, Duration: 30 day, Stop date: 01/04/13 9:00:00 erythromycin 250 mg, 1 tab, PO Active [facility] stearate 250 mg PO, Q6H, 56 tab, 2012 Medical oral tablet Substitution Center Allowed, TAB Protonix 40 mg 40 mg, 1 tab, PO Active [facility] oral enteric PO, Daily, 2012 Medical coated tablet tab, Center Substitution Allowed, ECTAB pravastatin 80 80 mg, 1 tab, PO Active [facility] mg oral tablet PO, Daily, 30 2012 Medical tab, Center Substitution Allowed, TAB insulin detemir 14 unit, 0.14 SUB-Q Active [facility] 100 units/mL mL, SUB-Q, 2012 Medical subcutaneous Bedtime, 100 mL, Center solution Substitution Allowed, INJ insulin detemir 16 unit, 0.16 SUB-Q Active [facility] 100 units/mL mL, SUB-Q, 2012 Medical subcutaneous Daily, 100 mL, Center solution Substitution Allowed, INJ Protonix 40 mg, Route: IVP No Longer [facility] IVP, Drug form: Active 2012 Medical INJ, Daily, Center Dosing Weight 100, kg, Priority: NOW, Start date: 12/06/12 16:52:00, Duration: 30 day, Stop date: 01/05/13 9:00:00 insulin detemir 16 unit, 0.16 SUB-Q No Longer [place] [facility] mL, Route: Active 2012 Medical SUB-Q, Drug Center form: INJ, Daily, Dosing Weight 100, kg, Start date: 12/06/12 9:00:00, Stop date: 01/04/13 9:00:00 [place] 7.5/325 1 tab, Route: PO No Longer [place] oral tablet PO, Drug Form: Active 2012 Medical TAB, Dosing Center Weight 100, kg, ONCE, Start date: 12/06/12 0:19:00, Stop date: 12/06/12 0:19:00 Pravachol 80 mg, 4 tab, PO No Longer [facility] Route: PO, Drug Active 2012 Medical form: TAB, Center Bedtime, Start date: 12/05/12 21:00:00, Duration: 30 day, Stop date: 01/03/13 21:00:00 insulin detemir 14 unit, 0.14 SUB-Q No Longer [place] [facility] mL, Route: Active 2012 Medical SUB-Q, Drug Center form: INJ, Bedtime, Dosing Weight 100, kg, Start date: 12/05/12 21:00:00, Stop date: 01/03/13 21:00:00 morphine 4 mg, 1 mL, IVP No Longer [facility] Sulfate Route: IVP, Drug Active 2012 Medical form: INJ, ONCE, Center Dosing Weight 100, kg, Start date: 12/05/12 16:51:00, Stop date: 12/05/12 16:51:00 erythromycin + 250 mg, Route: IVPB No Longer [facility] Sodium Chloride IVPB, Q8H, Active 2012 Medical 0.9% IV 100 mL Dosing Weight Center 100, kg, Start date: 12/05/12 16:00:00, Duration: 30 day, Stop date: 01/04/13 8:00:00 potassium 20 mEq, 100 mL, IVPB No Longer [facility] chloride Route: IVPB, Active 2012 Medical [...] mg, 1 tab, PO No Longer [facility] [place] Route: PO, Drug Active 2012 Medical form: ECTAB, Center Daily, Dosing Weight 100, kg, Start date: 12/04/12 9:00:00, Duration: 30 day, Stop date: 01/02/13 9:00:00 potassium 40 mEq, Route: IV No Longer [facility] chloride IV, ONCE, Dosing Active 2012 Medical Weight 100, kg, Center Start date: 12/04/12 8:20:00, Stop date: 12/04/12 8:20:00 Phenergan 25 mg, 1 supp, NH No Longer [facility] Route: NH, Drug Active 2012 Medical form: SUPP, Q4H, Center Dosing Weight 100, kg, PRN Nausea & Vomiting, Start date: 12/04/12 7:58:00, Duration: 30 day, Stop date: 01/03/13 7:57:00 Dextrose 50% 25 gm, 50 mL, IVP No Longer [facility] Syringe Route: IVP, Drug Active 2012 Medical Form: INJ, Center Dosing Weight 100, kg, PRN, PRN Blood Glucose Results, Start date: 12/04/12 7:48:00, Duration: 30 day, Stop date: 01/03/13 7:47:00 glucagon 1 mg, Route: IM, IM No Longer [facility] [place] Drug form: Active 2012 Medical PDR/INJ, PRN, Center Dosing Weight 100, kg, PRN Blood Glucose Results, Start date: 12/04/12 7:48:00, Duration: 30 day, Stop date: 01/03/13 7:47:00 insulin aspart 4 unit, 0.04 mL, SUB-Q No Longer [place] Route: SUB-Q, Active 2012 Medical Drug form: [...] mEq, 100 mL, IVPB No Longer [facility] chloride Route: IVPB, Active 2012 Medical Q2H, Start date: [place] 12/03/12 8:00:00, Stop date: 12/03/12 11:00:00 potassium 40 mEq, Route: IV No Longer [facility] chloride IV, ONCE, Dosing Active 2012 Medical Weight 100, kg, Center Start date: 12/03/12 7:02:00, Stop date: 12/03/12 7:02:00 NS 1,000 mL 1,000 mL, Rate: IV No Longer [facility] 125 ml/hr, Active 2012 Medical Infuse over: 8 Center hr, Route: IV, kg, Total Volume: 1,000, Start date: 12/02/12 16:54:00, Duration: 30 day, Stop date: 01/01/13 16:53:00 NS (Bolus) IV 1,000 mL, Rate: IV No Longer [facility] [place] 1,000 mL 1,000 ml/hr, Active 2012 Medical Infuse over: 1 Center hr, Route: IV, kg, Total Volume: 1,000, Priority: STAT, Start date: 12/02/12 13:12:00, Duration: 1 doses or times, Stop date: 12/02/12 14:11:00, Bolus DoseBolus Dose NS (Bolus) IV 1,000 mL, Rate: IV No Longer [facility] 1,000 mL 1,000 ml/hr, Active 2012 Medical Infuse over: 1 Center hr, Route: IV, kg, Total Volume: 1,000, Priority: STAT, Start date: 12/02/12 12:10:00, Duration: 1 doses or times, Stop date: 12/02/12 13:09:00, Bolus DoseBolus Dose insulin detemir 20 unit, 0.2 mL, SUB-Q No Longer [place] Route: SUB-Q, Active 2012 Medical Drug form: INJ, Center BID, Dosing Weight 100, kg, Start date: 12/02/12 9:00:00, Duration: 30 day, Stop date: 12/31/12 21:00:00 calcium 1,000 mg, 10 mL, IVPB No Longer [place] chloride + Route: IVPB, Active 2012 Medical Sodium Chloride ONCE, Start Center 0.9% IV 100 mL date: 12/02/12 5:08:00, Stop date: 12/02/12 5:08:00 ceftriaxone 1 gm, Route: IVPB No Longer [facility] IVPB, Drug form: Active 2012 Medical PDR/INJ, Center [id number], Dosing Weight 100, kg, Start date: 12/02/12 5:00:00, Duration: 30 day, Stop date: 12/31/12 5:00:00 calcium 1,000 mg, Route: IVPB No Longer [place] [facility] gluconate IVPB, Drug form: Active 2012 Medical INJ, ONCE, Center Dosing Weight 100, kg, Start date: 12/02/12 5:00:00, Stop date: 12/02/12 5:00:00 Dextrose 50% 25 mL, Route: IVP No Longer [facility] Syringe IVP, Dosing Active 2012 Medical Weight 100, kg, Center PRN, PRN Blood Glucose Results, Start date: 12/02/12 4:51:00, Duration: 30 day, Stop date: 01/01/13 4:50:00 Insulin regular 100 mL, Rate: IVPB No Longer [facility] 100 unit + Start Insulin Active [...] 4 mg, Route: IVP No Longer [facility] IVP, Drug form: Active 2012 Medical INJ, ONCE, Center Dosing Weight 100, kg, Priority: STAT, Start date: 12/02/12 4:47:00, Stop date: 12/02/12 4:47:00 normal saline 1,000 mL, Rate: IV No Longer [place] 0.9% IV 1,000 1,000 ml/hr, Active 2012 Medical mL Infuse over: 1 Center hr, Route: IV, kg, Total Volume: 1,000, Start date: 12/02/12 3:19:00, Duration: 1 doses or times, Stop date: 12/02/12 4:18:00 Insulin regular 6 unit, 0.06 mL, IV No Longer [place] [facility] Route: IV, Drug Active 2012 Medical form: [place] MARRUFO ONCE, Dosing Weight 100, kg, Priority: STAT, Start date: 12/02/12 3:19:00, Stop date: 12/02/12 3:19:00 insulin aspart 3 unit, 0.03 mL, SUB-Q No Longer [facility] Route: SUB-Q, Active 2012 Medical Drug form: SOLN, [place] Bedtime, Dosing Weight 100, kg, PRN Blood [...] Route: SUB-Q, Active 2012 [facility] [place] Bed[facility], Dosing Weight 100, kg, PRN Blood Glucose Results, Start date: 12/01/12 13:08:00, Duration: 30 day, Stop date: 12/31/12 13:07:00 insulin aspart 4 unit, 0.04 mL, SUB-Q No Longer [facility] Route: SUB-Q, Active 2012 Medical Drug form: [facility], [place] TID-Before Meals, Dosing Weight 100, kg, PRN [...] unit, 0.01 mL, SUB-Q No Longer [facility] 11/30[facility] Route: SUB-Q, Active 2012 Medical Drug form: SOLN, Center Sliding Scale, Dosing Weight 100, kg, PRN Blood Glucose Results, Start date: 11/30/12 18:36:00, Duration: 30 day, Stop date: 12/30/12 18:35:00 insulin detemir 16 unit, 0.16 SUB-Q No Longer [facility] 11/30[facility] Fei mL, Route: Active 2012 Medical SUB-Q, Drug Center form: INJ, Q12H, Dosing Weight 100, kg, Start date: 11/30/12 14:00:00, Duration: 30 day, Stop date: 12/30/12 9:00:00 Zofran 4 mg, 2 mL, IV No Longer [place] Route: IV, Drug Active 2012 Medical form: INJ, Q6H, Center Dosing Weight 100, kg, PRN Nausea, Start date: 11/30/12 13:32:00, Duration: 30 day, Stop date: 12/30/12 13:31:00 insulin aspart 10 unit, 0.1 mL, SUB-Q No Longer [facility] Route: SUB-Q, Active 2012 Medical Drug form: SOLN, Center TID-Before Meals, Dosing Weight 100, kg, PRN Blood Glucose Results, Start date: 11/30/12 13:26:00, Duration: 30 day, Stop date: 12/30/12 13:25:00 Zofran 4 mg, 2 mL, IV No Longer [facility] [place] Route: IV, Drug Active 2012 Medical form: INJ, Q8H, Center Dosing Weight 100, kg, PRN Nausea, Start date: 11/30/12 11:58:00, Duration: 30 day, Stop date: 12/30/12 11:57:00 Zofran 4 mg, 2 mL, IVP No Longer [place] Route: IVP, Drug Active 2012 Medical form: INJ, ONCE, Center Dosing Weight 100, kg, Priority: NOW, Start date: 11/30/12 11:57:00, Stop date: 11/30/12 11:57:00 potassium 2 pkt, Route: PO No Longer Counts Include [facility] [place] phosphate-sodiu PO, Drug Form: Active 2012 Medical m phosphate 250 PDR/REC, ONCE, Center mg-278 mg-164 Start date: mg oral powder 11/30/12 10:00:00, Stop date: 11/30/12 10:00:00 Dextrose 5% 1,000 mL, Rate: IV No Longer [place] with 0.45% NaCl 150 ml/hr, Active 2012 [...] unit, 0.1 mL, SUB-Q No Longer [facility] Route: SUB-Q, Active 2012 Medical Drug form: SOLN, Center TID-Before Meals, Dosing Weight 100, kg, PRN Blood Glucose Results, Start date: 11/30/12 7:57:00, Duration: 30 day, Stop date: 12/30/12 7:56:00 glucagon 1 mg, Route: IM, IM No Longer [facility] Drug form: Active 2012 Medical PDR/INJ, PRN, Center Dosing Weight 100, kg, PRN Blood Glucose Results, Start date: 11/30/12 7:57:00, Duration: 30 day, Stop date: 12/30/12 7:56:00 Dextrose 50% 25 gm, 50 mL, IVP No Longer [facility] Syringe Route: IVP, Drug Active 2012 [...] 5,000 unit, 1 SUB-Q No Longer [facility] units/mL mL, Route: Active 2012 Medical injectable SUB-Q, Drug Center solution form: INJ, Q8H, Dosing Weight 100, kg, Start date: 11/30/12 0:00:00, Duration: 30 day, Stop date: 12/29/12 16:00:00 hydrALAZINE 10 mg, 0.5 mL, IV No Longer [facility] Route: IV, Drug Active 2012 Medical form: INJ, Q4H, Center Dosing Weight 100, kg, PRN Hypertension, Start date: 11/29/12 22:56:00, Duration: 30 day, Stop date: 12/29/12 22:55:00 simvastatin 40 mg, 1 tab, PO No Longer [facility] Route: PO, Drug Active 2012 Medical form: TAB, Center Bedtime, Dosing Weight 101.364, kg, Start date: 11/29/12 21:00:00, Duration: 30 day, Stop date: 12/28/12 21:00:00 Cymbalta 60 mg, 1 cap, PO No Longer [place] Route: PO, Drug Active 2012 Medical form: DRC, Center Bedtime, Dosing Weight 101.364, kg, Start date: 11/29/12 21:00:00, Stop date: 12/28/12 21:00:00 ceftriaxone 1 gm, Route: IVPB No Longer [facility] IVPB, Drug form: Active 2012 Medical PDR/INJ, Center [id number], Dosing Weight 100, kg, Start date: 11/29/12 20:00:00, Duration: 30 day, Stop date: 12/28/12 20:00:00 hydrALAZINE 5 mg, 0.25 mL, IV No Longer [facility] Route: IV, Drug Active 2012 Medical form: INJ, Q4H, Center Dosing Weight 100, kg, PRN Hypertension, Start date: 11/29/12 19:42:00, Duration: 30 day, Stop date: 12/29/12 19:41:00 Phenergan 12.5 mg, 0.5 mL, IVPB No Longer [facility] Route: IVPB, Active 2012 Medical Drug form: INJ, Center Q4H, Dosing Weight 100, kg, PRN Nausea & Vomiting, Start date: 11/29/12 17:56:00, Duration: 30 day, Stop date: 12/29/12 17:55:00 clonazepam 0.5 mg, 1 tab, PO No Longer [facility] Route: PO, Drug Active 2012 Medical [...] 1,000 mL, Rate: IV No Longer [facility] mL 200 ml/hr, Active 2012 Medical Infuse over: 5 Center hr, Route: IV, kg, Total Volume: 1,000, Start date: 11/29/12 14:41:00, Stop date: 12/29/12 14:40:00 Sodium Chloride 1,000 mL, Rate: IV No Longer [facility] 0.9% IV 1,000 200 ml/hr, Active 2012 Medical mL Infuse over: 5 Center hr, Route: IV, kg, Total Volume: 1,000, Start date: 11/29/12 14:41:00, Stop date: 12/29/12 14:45:00 Insulin regular 99 mL, Rate: IV No Longer [facility] 100 unit + Start Insulin Active 2012 Medical Sodium Chloride Drip Per ICU Center 0.9% IV 99 mL protocol, Route: IV, kg, Total Volume: 100, Start date: 11/29/12 12:42:00, Stop date: 12/29/12 12:41:00 Insulin regular 100 mL, Rate: IVPB No Longer [facility] 11/29[facility] 100 unit + Start Insulin Active [...] gm, 25 mL, IVP No Longer [facility] Syringe Route: IVP, Drug Active 2012 [...] 90 mg, 1 tab, PO No Longer [facility] Route: PO, Drug Active 2012 Medical form: ERTAB, Center Daily, Dosing Weight 101.364, kg, Start date: 11/29/12 9:00:00, Duration: 30 day, Stop date: 12/28/12 9:00:00 clonazepam 0.5 mg, 1 tab, PO No Longer [facility] [place] Route: PO, Drug Active 2012 Medical form: TAB, TID, Center Dosing Weight 101.364, kg, Start date: 11/29/12 9:00:00, Duration: 30 day, Stop date: 12/28/12 17:00:00 lisinopril 20 mg, 1 tab, PO No Longer [facility] Route: PO, Drug Active 2012 Medical form: TAB, Q12H, Center Dosing Weight 101.364, kg, Start date: 11/29/12 9:00:00, Duration: 30 day, Stop date: 12/28/12 21:00:00 magnesium oxide 400 mg, 1 tab, PO No Longer [facility] Route: PO, Drug Active 2012 Medical form: TAB, Center Daily, Dosing Weight 101.364, kg, Start date: 11/29/12 9:00:00, Duration: 30 day, Stop date: 12/28/12 9:00:00 Effient 10 mg, 1 tab, PO No Longer [facility] Route: PO, Drug Active 2012 Medical form: TAB, Center Daily, Dosing Weight 101.364, kg, Start date: 11/29/12 9:00:00, Duration: 30 day, Stop date: 12/28/12 9:00:00 Levemir 8 unit, 0.08 mL, SUB-Q No Longer [facility] Route: SUB-Q, Active 2012 Medical Drug [...] 81 mg, 1 tab, PO No Longer [facility] Route: PO, Drug Active 2012 Medical [...] mg, 0.4 mL, SUB-Q No Longer [facility] Route: SUB-Q, Active 2012 Medical Drug form: INJ, Center [id number], Dosing Weight 101.364, kg, Start date: 11/29/12 4:00:00, Duration: 30 day, Stop date: 12/28/12 4:00:00 Phenergan 12.5 mg, 0.25 IVPB No Longer [facility] mL, Route: IVPB, Active 2012 Medical Drug form: INJ, Center Q4H, Dosing Weight 101.364, kg, Start date: 11/29/12 4:00:00, Duration: 30 day, Stop date: 12/29/12 0:00:00 tramadol 50 mg 50 mg, 1 tab, PO No Longer [facility] oral tablet Route: PO, Drug Active 2012 Medical form: TAB, Q4H, Center Dosing Weight 101.364, kg, PRN as needed for pain, Start date: 11/29/12 3:46:00, Duration: 30 day, Stop date: 12/29/12 3:45:00 insulin aspart 3 unit, 0.03 mL, SUB-Q No Longer [facility] Route: SUB-Q, Active 2012 Medical Drug form: SOLN, [place] TID-Before Meals, Dosing Weight 101.364, kg, PRN Blood Glucose Results, Start date: 11/29/12 3:26:00, Duration: 30 day, Stop date: 12/29/12 3:25:00 Dextrose 50% 12.5 gm, 25 mL, IVP No Longer [facility] Syringe Route: IVP, Drug Active 2012 Medical Form: INJ, Center Dosing Weight 101.364, kg, PRN, PRN Blood Glucose Results, Start date: 11/29/12 3:26:00, Duration: 30 day, Stop date: 12/29/12 3:25:00 glucagon 1 mg, Route: IM, IM No Longer [facility] Drug form: Active 2012 Medical PDR/INJ, PRN, Center Dosing Weight 101.364, kg, PRN Blood Glucose Results, Start date: 11/29/12 3:26:00, Duration: 30 day, Stop date: 12/29/12 3:25:00 acetaminophen 650 mg, 20.3 mL, PO No Longer [facility] Route: PO, Drug Active 2012 Medical form: LIQ, Q4H, Center Dosing Weight 101.364, kg, PRN Pain 1-3/Temp > 100.4 F, Start date: 11/29/12 3:25:00, Duration: 30 day, Stop date: 12/29/12 3:24:00 docusate 100 mg, 1 cap, PO No Longer [facility] Route: PO, Drug Active 2012 Medical form: CAP, BID, Center Dosing Weight 101.364, kg, PRN Constipation, Start date: 11/29/12 3:25:00, Duration: 30 day, Stop date: 12/29/12 3:24:00 D5W 1/2NS 1,000 1,000 mL, Rate: IV No Longer [facility] mL 75 ml/hr, Infuse Active 2012 Medical over: 13.3 hr, Center Route: IV, kg, Total Volume: 1,000, Start date: 11/29/12 3:21:00, Duration: 30 day, Stop date: 12/29/12 3:20:00 NS 0.45% IV 1,000 mL, Rate: IV No Longer [facility] 1000 mL 125 ml/hr, Active 2012 Medical Infuse over: 8 Center hr, Route: IV, Dosing Weight 101.364 kg, Total Volume: 1,000, Start date: 11/29/12 3:18:00, Duration: 30 day, Stop date: 12/29/12 3:17:00 Reglan 10 mg, 2 mL, IVP No Longer [facility] Route: IVP, Drug Active 2012 Medical form: INJ, ONCE, Center Dosing Weight 101.364, kg, Priority: STAT, Start date: 11/29/12 2:31:00, Stop date: 11/29/12 2:31:00 Zofran 8 mg, Route: IVP No Longer [facility] IVP, Drug form: Active 2012 Medical INJ, ONCE, Center Dosing Weight 101.364, kg, Priority: STAT, Start date: 11/29/12 1:52:00, Stop date: 11/29/12 1:52:00 Lortab 500 5 ml, PO, Q6H, PO No Longer [facility] mg-7.5 mg/15 mL PRN, 120 mL, for Active 2012 Medical oral elixir pain, Center Substitution Allowed, Maintenance, ELIX Phenergan 25 mg 1 supp, NH, Q6H, NH Active [facility] rectal PRN, 9 supp, 2012 Medical suppository Nausea & Center Vomiting, Substitution Allowed Phenergan 12.5 mg, 0.5 mL, IVPB No Longer [facility] Route: IVPB, Active 2012 Medical Drug form: INJ, Center ONCE, Dosing Weight 101.364, kg, Priority: STAT, Start date: 11/29/12 0:56:00, Stop date: 11/29/12 0:56:00 Zofran 4 mg, 2 mL, IVP No Longer [facility] Route: IVP, Drug Active 2012 Medical form: INJ, ONCE, Center Dosing Weight 101.364, kg, Priority: STAT, Start date: 11/28/12 23:49:00, Stop date: 11/28/12 23:49:00 Phenergan 12.5 mg, 0.5 mL, IVPB No Longer [facility] Route: IVPB, Active 2012 Medical Drug [...] 5 ml, Route: IVP No Longer [facility] 0.9% IVP, Drug Form: Active 2012 Medical INJ, Dosing Center Weight 101.364, kg, PRN, PRN Line Flush, Start date: 11/28/12 19:29:00, Duration: 30 day, Stop date: 12/28/12 19:28:00 calcium 2,000 mg, 20 mL, IVPB No Longer [facility] gluconate + Route: IVPB, Active 2012 Medical Sodium Chloride ONCE, Dosing Center 0.9% IV 80 mL Weight 103.21, kg, Start date: 11/17/12 11:02:00, Stop date: 11/17/12 11:02:00 magnesium 2 gm, 50 mL, IVPB No Longer [facility] sulfate Route: IVPB, Active 2012 Medical Drug form: INJ, Center Q2H, Dosing Weight 103.21, kg, Total dose=4 gm, Start date: 11/17/12 10:00:00, Duration: 2 doses or times, Stop date: 11/17/12 12:00:00 aspirin 81 mg, 1 tab, PO No Longer [facility] Route: PO, Drug Active 2012 Medical form: ECTAB, Center Daily, Dosing Weight 100, kg, Start date: 11/17/12 9:00:00, Duration: 30 day, Stop date: 12/16/12 9:00:00 simvastatin 40 mg, 1 tab, PO No Longer [facility] Route: PO, Drug Active 2012 Medical form: TAB, Center Daily, Dosing Weight 100, kg, Start date: 11/17/12 9:00:00, Duration: 30 day, Stop date: 12/16/12 9:00:00 prasugrel 10 mg, 1 tab, PO No Longer [facility] Route: PO, Drug Active 2012 Medical form: TAB, Center Daily, Dosing Weight 100, kg, Start date: 11/17/12 9:00:00, Duration: 30 day, Stop date: 12/16/12 9:00:00 NIFEdipine 90 mg, 1 tab, PO No Longer [facility] Route: PO, Drug Active 2012 Medical form: ERTAB, Center Daily, Dosing Weight 100, kg, Start date: 11/17/12 9:00:00, Duration: 30 day, Stop date: 12/16/12 9:00:00 Toprol-XL 100 100 mg, 1 tab, PO No Longer [facility] mg oral tablet, Route: PO, Drug Active 2012 Medical extended form: ERTAB, Center release Daily, Start date: 11/17/12 9:00:00, Duration: 30 day, Stop date: 12/16/12 9:00:00 magnesium oxide 400 mg, 1 tab, PO No Longer [facility] Route: PO, Drug Active 2012 Medical form: TAB, Center Daily, Dosing Weight 100, kg, Start date: 11/17/12 9:00:00, Duration: 30 day, Stop date: 12/16/12 9:00:00 insulin detemir 15 unit, 0.15 SUB-Q No Longer [facility] mL, Route: Active 2012 Medical SUB-Q, Drug Center form: INJ, Daily, Dosing Weight 100, kg, Start date: 11/17/12 9:00:00, Duration: 30 day, Stop date: 12/16/12 9:00:00 Zofran 8 mg, 4 mL, IV No Longer [facility] Route: IV, Drug Active 2012 Medical form: INJ, Q4H, Center Dosing Weight 103.21, kg, PRN as needed for nausea/vomiting, Start date: 11/17/12 8:56:00, Duration: 30 day, Stop date: 12/17/12 8:55:00 Reglan 10 mg 10 mg, 1 tab, PO No Longer [facility] oral tablet Route: PO, Drug Active 2012 Medical form: TAB, Center TID-Before Meals, Dosing Weight 100, kg, Start date: 11/17/12 7:30:00, Duration: 30 day, Stop date: 12/16/12 16:30:00 insulin aspart 4 unit, 0.04 mL, SUB-Q No Longer [facility] Route: SUB-Q, Active 2012 Medical Drug form: SOLN, Center TID-Before Meals, Dosing Weight 100, kg, Start date: 11/17/12 7:30:00, Duration: 30 day, Stop date: 12/16/12 16:30:00 Cymbalta 120 mg, 2 cap, PO No Longer [facility] Route: PO, Drug Active 2012 Medical form: DRC, Center Bedtime, Dosing Weight 100, kg, Start date: 11/16/12 21:00:00, Duration: 30 day, Stop date: 12/15/12 21:00:00 lisinopril 20 mg, 1 tab, PO No Longer [facility] Route: PO, Drug Active 2012 Medical form: TAB, Q12H, Center Dosing Weight 100, kg, Start date: 11/16/12 21:00:00, Duration: 30 day, Stop date: 12/16/12 9:00:00 insulin detemir 12 unit, 0.12 SUB-Q No Longer [facility] mL, Route: Active 2012 Medical SUB-Q, Drug Center form: INJ, Bedtime, Dosing Weight 100, kg, Start date: 11/16/12 21:00:00, Duration: 30 day, Stop date: 12/15/12 21:00:00 clonazepam 0.5 mg, 1 tab, PO No Longer [facility] Route: PO, Drug Active 2012 Medical form: TAB, TID, Center Dosing Weight 100, kg, Start date: 11/16/12 20:30:00, Duration: 30 day, Stop date: 12/16/12 17:00:00 Neutra-Phos 1 pkt, Route: PO No Longer [facility] PO, Drug Form: Active 2012 Medical PDR/REC, Dosing Center Weight 100, kg, TID-Before Meals, Start date: 11/16/12 20:30:00, Duration: 30 day, Stop date: 12/16/12 16:30:00 enoxaparin 40 mg, 0.4 mL, SUB-Q No Longer [facility] Route: SUB-Q, Active 2012 Medical Drug form: INJ, Center [id number], Dosing Weight 100, kg, Start date: 11/16/12 19:00:00, Duration: 30 day, Stop date: 12/15/12 19:00:00 Sodium Chloride 1,000 mL, Rate: IV No Longer [place] 0.9% IV 1,000 125 ml/hr, Active 2012 Medical mL Infuse over: 8 Center hr, Route: IV, kg, Total Volume: 1,000, Start date: 11/16/12 18:10:00, Duration: 30 day, Stop date: 12/16/12 18:09:00 insulin aspart 10 unit, 0.1 mL, SUB-Q No Longer [facility] Route: SUB-Q, Active 2012 Medical Drug form: SOLN, Center TID-Before Meals, Dosing Weight 100, kg, PRN Blood Glucose Results, Start date: 11/16/12 18:10:00, Duration: 30 day, Stop date: 12/16/12 18:09:00 Dextrose 50% 12.5 gm, 25 mL, IVP No Longer [facility] Syringe Route: IVP, Drug Active 2012 Medical Form: INJ, Center Dosing Weight 100, kg, PRN, PRN Blood Glucose Results, Start date: 11/16/12 18:10:00, Duration: 30 day, Stop date: 12/16/12 18:09:00 glucagon 1 mg, Route: IM, IM No Longer [facility] Drug form: Active 2012 Medical PDR/INJ, PRN, Center Dosing Weight 100, kg, PRN Blood Glucose Results, Start date: 11/16/12 18:10:00, Duration: 30 day, Stop date: 12/16/12 18:09:00 [place] 5/325 1 tab, Route: PO No Longer [facility] oral tablet PO, Drug Form: Active 2012 Medical TAB, Dosing Center Weight 100, kg, Q6H, PRN as needed for pain, Start date: 11/16/12 18:07:00, Duration: 30 day, Stop date: 12/16/12 18:06:00 tramadol 50 mg 50 mg, 1 tab, PO No Longer [facility] oral tablet Route: PO, Drug Active 2012 Medical form: TAB, Q4H, Center Dosing Weight 100, kg, PRN as needed for pain, Start date: 11/16/12 18:01:00, Duration: 30 day, Stop date: 12/16/12 18:00:00 promethazine 25 mg, 1 tab, PO No Longer [facility] Route: PO, Drug Active 2012 Medical form: TAB, Q4H, Center Dosing Weight 100, kg, PRN as needed for nausea/vomiting, Start date: 11/16/12 18:01:00, Duration: 30 day, Stop date: 12/16/12 18:00:00 ondansetron 8 mg, 2 tab, PO No Longer [facility] Route: PO, Drug Active 2012 Medical form: TABDIS, Center Q8H, Dosing Weight 100, kg, PRN Nausea & Vomiting, Start date: 11/16/12 18:01:00, Stop date: 12/16/12 18:00:00, nauea ondansetron 8 8 mg, 1 tab, PO, PO Active [facility] mg oral tablet, Q8H, PRN, 2012 Medical disintegrating Dissolve under Center tongue, 10 tab, as needed for nausea/vomiting, Substitution AllowedDissolve under tongue Effient 10 mg 10 mg, 1 tab, PO Active [facility] oral tablet PO, Daily, 30 2012 Medical tab, Center Substitution Allowed, TAB tramadol 50 mg 50 mg, 1 tab, PO Active [facility] oral tablet PO, Q4H, PRN, 60 2012 Medical tab, for pain, Center Substitution Allowed, TAB clonazepam 0.5 0.5 mg, 1 tab, PO Active [place] 11/16[facility] mg oral tablet PO, TID, 2012 Medical Substitution Center Allowed, TAB Reglan 10 mg, Route: IVP No Longer [facility] IVP, ONCE, Active 2012 Medical Dosing Weight Center 100, kg, Priority: STAT, Start date: 11/16/12 16:16:00, Stop date: 11/16/12 16:16:00 magnesium 1 gm, 2 mL, IV No Longer [facility] sulfate Route: IV, Drug Active 2012 Medical form: INJ, ONCE, Center Dosing Weight 100, kg, Priority: STAT, Start date: 11/16/12 15:50:00, Stop date: 11/16/12 15:50:00 Omnipaque 100 mL, Route: IVP No Longer [facility] 350mg/ml IVP, Drug Form: Active 2012 Medical SOLN, Dosing Center Weight 100, kg, ONCALL, STAT, Start date: 11/16/12 15:35:00, Duration: 1 doses or times, Dose=2.2ml/kg, Max [id number] -- "To be infused by Radiology Staff ONLY"Dose=2.2ml/ kg, Max [id number] -- "To be infused by Radiology Staff [...] 1 mg, 0.5 mL, IVP No Longer [place] [facility] Route: IVP, Drug Active 2012 Medical [...] mg, 4 tab, CHEW No Longer [facility] Route: CHEW, Active 2012 Medical Drug form: Center CHEWTAB, ONCE, Dosing Weight 100, kg, Priority: STAT, Start date: 11/16/12 13:29:00, Stop date: 11/16/12 13:29:00 Zofran 8 mg, 4 mL, IVP No Longer [facility] Route: IVP, Drug Active 2012 Medical form: INJ, ONCE, Center Dosing Weight 100, kg, Priority: STAT, Start date: 11/16/12 13:17:00, Stop date: 11/16/12 13:17:00 Saline Flush 5 mL, Route: IVP No Longer [facility] 0.9% IVP, Drug Form: Active 2012 Medical INJ, Dosing Center Weight 100, kg, Q8H, PRN Line Flush, Start date: 11/16/12 13:16:00, Duration: 30 day, Stop date: 12/16/12 13:15:00, Administer at least once every 8 hoursAdminister at least once every 8 hours Reglan 10 mg 10 mg, 1 tab, PO Active [facility] oral tablet PO, TID-Before 2012 Medical Meals, PRN, 42 Center tab, nausea, Substitution Allowed, TAB [place] 5/325 1 tab, PO, Q6H, PO Active [facility] 11/14[facility] oral tablet PRN, 10 tab, 2013 Medical Pain, Center Substitution Allowed, Maintenance, TAB ondansetron 8 8 mg, 1 tab, PO, PO Active [facility] 11[facility]14[facility] mg oral tablet, Q8H, PRN, 60 2012 Medical disintegrating tab, 1, 1, Center Nausea, Substitution Allowed, TABDIS insulin detemir 12 unit, 0.12 SUB-Q Active [facility] 11/14[facility] 100 units/mL mL, SUB-Q, 2012 Medical subcutaneous Bedtime, 4 mL, Center solution Substitution Allowed, INJ insulin detemir 15 unit, 0.15 SUB-Q Active [facility] 11/14[facility] 100 units/mL mL, SUB-Q, 2012 Medical subcutaneous Daily, 5 mL, Center solution Substitution Allowed, INJ Zofran 4 mg, 1 tab, PO No Longer [facility] Route: PO, Drug Active 2012 Medical form: TAB, Q8H, Center Dosing Weight 100, kg, Start date: 11/14/12 16:00:00, Duration: 30 day, Stop date: 12/14/12 8:00:00 Reglan 10 mg 10 mg, 1 tab, PO No Longer [facility] oral tablet Route: PO, Drug Active 2012 Medical form: TAB, Center TID-Before Meals, Dosing Weight 100, kg, Start date: 11/14/12 11:30:00, Duration: 30 day, Stop date: 12/14/12 7:30:00 calcium 2,000 mg, 20 mL, IVPB No Longer [facility] gluconate + Route: IVPB, Active 2012 Medical Sodium Chloride Drug form: INJ, Center 0.9% IV 100 mL Q2H, Dosing Weight 100, kg, Total [id number] mg, Start date: 11/14/12 8:00:00, Duration: 2 doses or times, Stop date: 11/14/12 10:00:00 magnesium 2 gm, 50 mL, IVPB No Longer [facility] sulfate Route: IVPB, Active 2012 Medical [...] 20 mEq, 100 mL, IVPB No Longer [facility] chloride Route: IVPB, Active 2012 Medical Drug form: INJ, Center ONCE, Dosing Weight 100, kg, Total dose=20mEq, Start date: 11/13/12 7:58:00, Duration: 1 doses or times, Stop date: 11/13/12 7:58:00, For K=3.5 - 3.9 mEq/LFor K=3.5 - 3.9 mEq/L calcium 1,000 mg, 10 mL, IVPB No Longer [facility] gluconate + Route: IVPB, Active 2012 Medical Sodium Chloride ONCE, Dosing Center 0.9% IV 50 mL Weight 100, kg, Start date: 11/13/12 7:56:00, Stop date: 11/13/12 7:56:00 Reglan 10 mg, 2 mL, IVP No Longer [facility] Route: IVP, Drug Active 2012 Medical form: INJ, Center Before Meals & Bedtime, Dosing Weight 100, kg, Start date: 11/12/12 16:30:00, Duration: 30 day, Stop date: 12/12/12 11:30:00 [place] 5/325 1 tab, Route: PO No Longer [facility] oral tablet PO, Drug Form: Active jaida 2012 Medical TAB, Dosing Center Weight 100, kg, Q6H, PRN Pain, Start date: 11/12/12 16:07:00, Duration: 30 day, Stop date: 12/12/12 16:06:00 Reglan 10 mg, Route: IVP No Longer [facility] IVP, Q6H, Dosing Active 2012 Medical Weight 100, kg, Center PRN Nausea & Vomiting, Start date: 11/12/12 12:35:00, Duration: 30 day, Stop date: 12/12/12 12:34:00 insulin detemir 15 unit, Route: SUB-Q No Longer [facility] SUB-Q, ONCE, Active 2012 Medical Dosing Weight Center 100, kg, Priority: NOW, Start date: 11/12/12 10:38:00, Stop date: 11/12/12 10:38:00 heparin 7,500 unit, 1.5 SUB-Q No Longer [facility] mL, Route: Active 2012 Medical SUB-Q, [...] Chloride 1,000 mL, Rate: IV No Longer [facility] [place] 0.9% (Bolus) IV 1,000 ml/hr, Active 2012 Medical 1,000 mL Infuse over: 1 Center hr, Route: IV, kg, Total Volume: 1,000, Priority: STAT, Start date: 11/10/12 20:17:00, Duration: 1 doses or times, Stop date: 11/10/12 21:16:00, Bolus DoseBolus Dose insulin detemir 10 unit, 0.1 mL, SUB-Q No Longer [facility] Route: SUB-Q, Active 2012 Medical Drug form: INJ, Center ONCE, Dosing Weight 100, kg, Priority: NOW, Start date: 11/10/12 11:40:00, Stop date: 11/10/12 11:40:00 Zofran ODT 4 mg, 1 tab, PO No Longer [facility] [place] Route: PO, Drug Active 2012 Medical form: TABDIS, Center Q8H, Dosing Weight 100, kg, PRN Nausea, Start date: 11/10/12 11:04:00, Duration: 30 day, Stop date: 12/10/12 11:03:00 Phenergan 12.5 mg, 0.5 mL, IM No Longer Ahmad [place] Route: IM, Drug 2012 Medical form: INJ, PRN, Center Dosing Weight 100, kg, PRN as needed for nausea/vomiting, Start date: 11/10/12 10:00:00, Duration: 30 day, Stop date: 12/10/12 10:59:00 insulin detemir 16 unit, 0.16 SUB-Q No Longer [place] mL, Route: Active 2012 Medical SUB-Q, Drug Center form: INJ, ONCE, Dosing Weight 100, kg, Start date: 11/10/12 0:20:00, Stop date: 11/10/12 0:20:00 NovoLog 6 unit, 0.06 mL, SUB-Q No Longer [facility] Route: SUB-Q, Active 2012 Medical Drug form: SOLN, Center TID-Before Meals, Dosing Weight 100, kg, Start date: 11/09/12 16:30:00, Duration: 30 day, Stop date: 12/09/12 11:30:00 insulin aspart 7 unit, 0.07 mL, SUB-Q No Longer L[facility]a [facility] Route: SUB-Q, Active 2012 Medical Drug form: SOLN, Center ONCE, Dosing Weight 100, kg, Start date: 11/09/12 13:24:00, Stop date: 11/09/12 13:24:00 insulin detemir 20 unit, 0.2 mL, SUB-Q No Longer [facility] Route: SUB-Q, Active 2012 Medical Drug form: INJ, Center Daily, Dosing Weight 100, kg, Start date: 11/09/12 9:00:00, Duration: 30 day, Stop date: 12/08/12 9:00:00 morphine 1 mg, 0.5 mL, IV No Longer Chavez [facility] Sulfate Route: IV, Drug Active 2012 Medical form: INJ, ONCE, Center Dosing Weight 100, kg, Start date: 11/09/12 5:28:00, Stop date: 11/09/12 5:28:00 insulin detemir 12 unit, 0.12 SUB-Q No Longer Olejarski [facility] mL, Route: Active 2012 Medical SUB-Q, Drug Center form: INJ, Bedtime, Dosing Weight 100, kg, Start date: 11/08/12 21:00:00, Stop date: 12/07/12 21:00:00 morphine 2 mg, 1 mL, IVP No Longer Quintan[facility] Sulfate Route: IVP, Drug Active 2012 Medical form: INJ, ONCE, Center Dosing Weight 100, kg, Start date: 11/08/12 18:34:00, Stop date: 11/08/12 18:34:00 ampicillin + 1,500 mg, Route: IVPB No Longer [facility] Sodium Chloride IVPB, Drug form: Active 2012 Medical 0.9% IV 100 mL PDR/INJ, [id number], Center Dosing Weight 100, kg, Start date: 11/08/12 18:00:00, Duration: 30 day, Stop date: 12/08/12 12:00:00 ciprofloxacin 500 mg, 1 tab, PO No Longer [facility] Route: PO, Drug Active 2012 Medical form: TAB, Center [id number], Dosing Weight 100, kg, Start date: 11/08/12 [...] 40 mg, Route: IVP No Longer [facility]an[facility] IVP, Drug form: Active 2012 Medical INJ, Before Center Breakfast, Dosing Weight 100, kg, Start date: 11/07/12 7:30:00, Duration: 30 day, Stop date: 12/06/12 7:30:00 insulin aspart 10 unit, 0.1 mL, SUB-Q No Longer [facility] Route: SUB-Q, 2012 Medical Drug form: SOLN, Center ONCE, Dosing Weight 100, kg, Start date: 11/06/12 13:32:00, Stop date: 11/06/12 13:32:00 adenosine 84 mg, Route: IVP No Longer Ahmad [facility] IVP, ONCE, 2012 Medical Dosing Weight Center 100, kg, Priority: Routine, Start date: 11/06/12 10:20:00, Stop date: 11/06/12 10:20:00 Insulin regular 10 unit, 0.1 mL, SUB-Q No Longer [facility] Route: SUB-Q, 2012 Medical Drug form: SOLN, Center ONCE, Dosing Weight 100, kg, Start date: 11/06/12 9:47:00, Stop date: 11/06/12 9:47:00 insulin aspart 10 unit, 0.1 mL, SUB-Q No Longer [facility] Route: SUB-Q, 2012 Medical Drug form: SOLN, Center ONCE, Dosing Weight 100, kg, Start date: 11/06/12 9:43:00, Stop date: 11/06/12 9:43:00 Lactated 1,000 mL, Rate: IV No Longer [place] (Bolus) 1,000 ml/hr, Active 2012 Medical IV 1,000 mL Infuse over: 1 Center hr, Route: IV, kg, Total Volume: 1,000, Bolus Dose, Priority: STAT, Start date: 11/06/12 9:14:00, Duration: 1 doses or times, Stop date: 11/06/12 10:13:00 Insulin regular 9 unit, 0.09 mL, SUB-Q No Longer [facility] Route: SUB-Q, Active 2012 Medical Drug [...] SUB-Q, Active 2012 Medical Drug form: SOLN, [place] TID-Before Meals, Dosing Weight 100, kg, Start date: 11/06/12 7:30:00, Duration: 30 day, Stop date: 12/05/12 16:30:00 metoclopramide 10 mg, 2 mL, IVP No Longer [facility] Route: IVP, Drug Active 2012 Medical form: INJ, Q6H, Center Dosing Weight 100, kg, PRN Nausea & Vomiting, Start date: 11/06/12 1:49:00, Duration: 30 day, Stop date: 12/06/12 1:48:00 Benadryl 25 mg, 0.5 mL, IV No Longer [facility] Route: IV, Drug Active 2012 Medical form: INJ, Q4H, Center Dosing Weight 100, kg, PRN as needed for nausea/vomiting, Start date: 11/06/12 1:44:00, Duration: 30 day, Stop date: 12/06/12 1:43:00 Phenergan 12.5 mg, 0.5 mL, IVPB No Longer [facility] Route: IVPB, Active 2012 Medical Drug form: INJ, Center Q6H, Dosing Weight 100, kg, PRN Nausea & Vomiting, Start date: 11/06/12 1:43:00, Stop date: 12/06/12 1:42:00 Benadryl 25 mg, 1 cap, PO No Longer [place] [facility] Route: PO, Drug Active 2012 Medical form: CAP, TID, Center Dosing Weight 100, kg, PRN Nausea, Start date: 11/06/12 0:31:00, Duration: 30 day, Stop date: 12/06/12 0:30:00 labetalol 20 mg, 4 mL, IVP No Longer [facility] Route: IVP, Drug Active 2012 Medical form: INJ, ONCE, Center Dosing Weight 100, kg, Start date: 11/06/12 0:25:00, Stop date: 11/06/12 0:25:00 simvastatin 40 mg, 1 tab, PO No Longer [facility] Route: PO, Drug Active 2012 Medical form: TAB, Center Bedtime, Dosing Weight 100, kg, Start date: 11/05/12 23:00:00, Duration: 30 day, Stop date: 12/05/12 21:00:00 lisinopril 20 mg, 1 tab, PO No Longer [place] [facility] Route: PO, Drug Active 2012 Medical form: TAB, Q12H, Center Dosing Weight 100, kg, Start date: 11/05/12 23:00:00, Duration: 30 day, Stop date: 12/05/12 21:00:00 insulin detemir 20 unit, 0.2 mL, SUB-Q No Longer [facility]arski [facility] Route: SUB-Q, Active 2012 Medical Drug form: INJ, Center Q12H, Dosing Weight 100, kg, Start date: 11/05/12 23:00:00, Stop date: 12/05/12 21:00:00 magnesium oxide 400 mg, 1 tab, PO Active [place] 400 mg oral PO, Daily, 2012 Medical tablet tab, Center Substitution Allowed, TAB metoprolol 100 100 mg, 1 tab, PO Active [facility] mg oral tablet, PO, Daily, 30 2012 Medical extended tab, Center release Substitution Allowed NIFEdipine 90 90 mg, 1 tab, PO Active [facility] mg oral tablet, PO, Daily, 30 2012 Medical extended tab, Center release Substitution Allowed, ERTAB prasugrel 10 mg 10 mg, 1 tab, PO Active [facility] oral tablet PO, Daily, 2012 Medical tab, Center Substitution Allowed, TAB Cymbalta 60 mg, Daily, Active [facility] Substitution 2012 Medical Allowed Center tramadol 50 mg 50 mg, 1 tab, PO No Longer [place] [facility] oral tablet Route: PO, Drug Active 2012 Medical form: TAB, Q4H, Center Dosing Weight 100, kg, PRN For Pain, Start date: 11/05/12 22:39:00, Duration: 30 day, Stop date: 12/05/12 22:38:00 promethazine 25 mg, 1 tab, PO No Longer [place] [facility] Route: PO, Drug Active 2012 Medical form: TAB, Q6H, Center Dosing Weight 100, kg, PRN as needed for nausea/vomiting, Start date: 11/05/12 22:39:00, Duration: 30 day, Stop date: 12/05/12 22:38:00 Phenergan 25 mg, 1 tab, PO No Longer [place] [facility] Route: PO, Drug Active 2012 Medical form: TAB, Q4H, Center Dosing Weight 104.545, kg, PRN Nausea & Vomiting, Start date: 11/05/12 22:33:00, Duration: 30 day, Stop date: 12/05/12 22:32:00 Zofran 8 mg, 4 mL, IV No Longer [place] Route: IV, Drug Active 2012 Medical form: INJ, Q8H, Center Dosing Weight 104.545, kg, PRN Nausea, Start date: 11/05/12 22:32:00, Duration: 30 day, Stop date: 12/05/12 22:31:00 Saline Flush 5 ml, Route: IVP No Longer [place] 0.9% IVP, Drug Form: Active 2012 Medical INJ, Dosing Center Weight 104.545, kg, PRN, PRN Line Flush, Start date: 11/05/12 22:14:00, Duration: 30 day, Stop date: 12/05/12 23:13:00 Sodium Chloride 500 mL, Rate: IV No Longer [place] 0.9% (Bolus) IV 2,000 ml/hr, Active 2012 Medical 500 mL Infuse over: 15 Center minutes, Route: IV, kg, Total Volume: 500, Priority: STAT, Start date: 11/05/12 22:14:00, Duration: 1 doses or times, Stop date: 11/05/12 22:28:00 nitroglycerin 0.4 mg, 1 tab, SL No Longer [place] [facility] SL Tab Route: SL, Drug 2012 Medical form: TAB, Center Q5Min, Dosing Weight 104.545, kg, PRN Chest Pain, Start date: 11/05/12 22:14:00, Duration: 3 doses or times, Stop date: Limited # of times Phenergan 12.5 mg, Route: IVPB No Longer Dilan [place] IVPB, ONCE, Active 2012 Medical Dosing Weight Center 104.545, kg, Priority: STAT, Start date: 11/05/12 22:05:00, Stop date: 11/05/12 22:05:00 Phenergan 12.5 mg, 0.5 mL, IVPB No Longer Dilan [facility] Route: IVPB, Active 2012 Medical Drug form: INJ, Center ONCE, Dosing Weight 104.545, kg, Priority: STAT, Start date: 11/05/12 21:08:00, Stop date: 11/05/12 21:08:00 carvedilol 12.5 mg, 1 tab, PO No Longer Dilan [facility] Route: PO, Drug Active 2012 Medical form: TAB, ONCE, Center Dosing Weight 104.545, kg, Start date: 11/05/12 19:20:00, Stop date: 11/05/12 19:20:00 Effient 10 mg, 1 tab, PO No Longer Dilan [facility] Route: PO, Drug Active 2012 Medical form: TAB, ONCE, Center Dosing Weight 104.545, kg, Start date: 11/05/12 19:16:00, Stop date: 11/05/12 19:16:00 ondansetron 4 mg, 2 mL, IVP No Longer Dilan [facility] Route: IVP, Drug Active 2012 Medical form: INJ, ONCE, Center Dosing Weight 104.545, kg, Priority: STAT, Start date: 11/05/12 19:14:00, Stop date: 11/05/12 19:14:00 aspirin 324 mg, 4 tab, PO No Longer Dilan [facility] Route: PO, Drug Active 2012 Medical form: [place], Center ONCE, Dosing Weight 104.545, kg, Priority: STAT, Start date: 11/05/12 19:14:00, Stop date: 11/05/12 19:14:00 Saline Flush 5 mL, Route: IVP No Longer Dilan [facility] 0.9% IVP, Drug Form: Active 2012 [...] detemir 16 unit, 0.16 SUB-Q No Longer [place] mL, Route: Active 2012 Medical SUB-Q, Drug Center form: INJ, Q12H, Dosing Weight 78.2, kg, Start date: 10/31/12 21:00:00, Duration: 30 day, Stop date: 11/30/12 9:00:00 insulin aspart 4 unit, 0.04 mL, SUB-Q Active [place] 100 units/mL SUB-Q, 2012 Medical subcutaneous TID-Before [place] solution Meals, 1 vial, 2, 2, Substitution Allowed, SOLN insulin detemir 16 unit, 0.16 SUB-Q Active [facility] 100 units/mL mL, SUB-Q, Q12H, 2012 Medical subcutaneous 1 vial, 2, 2, Center solution Substitution Allowed, INJ tramadol 50 mg 50 mg, 1 tab, PO Active [place] oral tablet PO, Q4H, PRN, 30 2012 Medical tab, as needed Center for pain, Substitution Allowed, TAB simvastatin 40 40 mg, 1 tab, PO Active [place] mg oral tablet PO, Bedtime, 30 2012 Medical tab, 1, 1, Center Substitution Allowed, Maintenance, TAB promethazine 25 25 mg, 1 tab, PO Active [place] mg oral tablet PO, Q6H, PRN, 60 2012 Medical tab, 1, 1, Center Nausea & Vomiting, Substitution Allowed, TAB prasugrel 10 mg 10 mg, 1 tab, PO Active [place] oral tablet PO, Daily, 30 2012 Medical tab, 1, 1, Center Substitution Allowed, TAB ondansetron 8 8 mg, 1 tab, PO, PO Active [place] 10/31/ [place] mg oral tablet, Q8H, PRN, 60 2012 Medical disintegrating tab, 1, 1, Center Nausea, Substitution Allowed, TABDIS NIFEdipine 90 90 mg, 1 tab, PO Active [place] 10/31/ [place] mg oral tablet, PO, Daily, 30 2012 Medical extended tab, 1, 1, Center release Substitution Allowed, ERTAB Toprol-XL 100 100 mg, 1 tab, PO Active [place] 10/31/ [place] mg oral tablet, PO, Daily, 30 2012 Medical extended tab, 1, 1, Center release Substitution Allowed, ERTAB magnesium oxide 400 mg, 1 tab, PO Active [place] 10/31/ [place] 400 mg oral PO, Daily, 30 2012 Medical tablet tab, 1, 1, Center Substitution Allowed, TAB lisinopril 20 20 mg, 1 tab, PO Active [place] 10/31/ [place] mg oral tablet PO, Q12H, 60 2012 Medical tab, 1, 1, Center Substitution Allowed, TAB aspirin 81 mg 81 mg, 1 tab, PO Active [place] [facility] tablet, enteric PO, Daily, 30 2012 Medical coated tab, 1, 1, Center Substitution Allowed, ECTAB insulin aspart 6 unit, 0.06 mL, SUB-Q No Longer Manlapaz [place] Route: SUB-Q, Active 2012 Medical Drug form: SOLN, [place] TID-Before Meals, Dosing Weight 78.2, kg, PRN [...] 50 mg, 1 tab, PO No Longer [place] [facility] oral tablet Route: PO, Drug Active 2012 Medical form: TAB, Q4H, Center Dosing Weight 78.2, kg, PRN as needed for pain, Start date: 10/29/12 9:45:00, Duration: 30 day, Stop date: 11/28/12 9:44:00 Toradol 15 15 mg, 0.5 mL, IV No Longer [place] [facility] mg/mL Route: IV, Drug Active 2012 Medical injectable form: INJ, ONCE, Center solution Dosing Weight 78.2, kg, Start date: 10/29/12 6:54:00, Stop date: 10/29/12 6:54:00 Toradol 15 15 mg, 0.5 mL, IV No Longer [place] [facility] mg/mL Route: IV, Drug Active 2012 [...] 20 mg, Route: IVP No Longer [place] 02/22[facility] IVP, Drug form: Active 2012 Medical INJ, ONCE, Center Dosing Weight 78.2, kg, Start date: 10/27/12 19:28:00, Stop date: 10/27/12 19:28:00 labetalol 20 mg, 4 mL, IVP No Longer [place] 10/27[facility] Route: IVP, Drug Active 2012 Medical form: INJ, ONCE, Center Dosing Weight 78.2, kg, Start date: 10/27/12 17:28:00, Stop date: 10/27/12 17:28:00 Benadryl 25 mg, 1 cap, PO No Longer [place] [facility] Route: PO, Drug Active 2012 Medical form: CAP, ONCE, Center Dosing Weight 78.2, kg, Start date: 10/27/12 17:28:00, Stop date: 10/27/12 17:28:00 Reglan 10 mg 10 mg, Route: PO No Longer [place] [facility] oral tablet PO, Drug form: Active 2012 Medical TAB, Before Center Meals & Bedtime, Dosing Weight 78.2, kg, Start date: 10/27/12 16:30:00, Duration: 30 day, Stop date: 11/26/12 11:30:00 Reglan 5 mg, 1 mL, IV No Longer [place] [facility] Route: IV, Drug Active 2012 Medical form: INJ, Q8H, Center Dosing Weight 78.2, kg, Start date: 10/27/12 16:00:00, Duration: 30 day, Stop date: 11/26/12 8:00:00 Reglan 5 mg, 1 mL, IV No Longer [place] [facility] Route: IV, Drug Active 2012 Medical form: INJ, Q8H, Center Dosing Weight 78.2, kg, PRN Nausea, Start date: 10/27/12 13:08:00, Duration: 30 day, Stop date: 11/26/12 13:07:00 lisinopril 20 mg, 1 tab, PO No Longer [place] [facility] Route: PO, Drug Active 2012 Medical form: TAB, Q12H, Center Dosing Weight 78.2, kg, Start date: 10/27/12 10:00:00, Duration: 30 day, Stop date: 11/26/12 9:00:00 ergocalciferol 50,000 IntlUnit, PO No Longer Manlapaz [facility] 1 cap, Route: Active 2012 Medical PO, Drug form: Center CAP, Daily, Dosing Weight 78.2, kg, Start date: 10/27/12 9:00:00, Duration: 4 day, Stop date: 10/30/12 9:00:00 magnesium oxide 400 mg, 1 tab, PO No Longer [place] Route: PO, Drug Active 2012 Medical form: TAB, Center Daily, Dosing Weight 78.2, kg, Start date: 10/27/12 9:00:00, Duration: 30 day, Stop date: 11/25/12 9:00:00 Toprol-XL 100 100 mg, 1 tab, PO No Longer Calloway [facility] mg oral tablet, Route: PO, Drug Active 2012 Medical extended form: ERTAB, [place] release Daily, Start date: 10/27/12 9:00:00, Duration: 30 day, Stop date: 11/25/12 9:00:00 insulin aspart 7 unit, Route: SUB-Q No Longer Manlapaz [facility] SUB-Q, Drug Active 2012 Medical form: WHITLloyd [place] TID-Before Meals, Dosing Weight 78.2, kg, Start date: 10/26/12 12:00:00, Duration: 30 day, Stop date: 11/25/12 11:30:00 Insulin regular 10 unit, 0.1 mL, SUB-Q No Longer [facility] Route: SUB-Q, Active 2012 Medical [facility], Dosing Weight 78.2, kg, Start date: 10/26/12 10:32:00, Stop date: 10/26/12 10:32:00 NIFEdipine 90 mg, 1 tab, PO No Longer [facility] extended Route: PO, Drug Active 2012 Medical release form: ERTAB, [place] Daily, Dosing Weight 78.2, kg, Start date: 10/26/12 9:00:00, Duration: 30 day, Stop date: 11/24/12 9:00:00 metoprolol 25 mg, 1 tab, PO No Longer C[facility]ay [facility] tartrate Route: PO, Drug Active 2012 Medical form: TAB, Q12H, Center Dosing Weight 78.2, kg, Start date: 10/26/12 9:00:00, Duration: 30 day, Stop date: 11/24/12 21:00:00 Reglan 10 mg, 1 tab, PO No Longer [facility] [facility] Route: PO, Drug Active 2012 Medical [...] gm, 50 mL, IVPB No Longer [facility] sulfate Route: IVPB, Active 2012 Medical [...] mg, 1 tab, PO No Longer [facility] Route: PO, Drug Active 2012 Medical form: ERTAB, Center ONCE, Dosing Weight 78.2, kg, Start date: 10/25/12 14:49:00, Stop date: 10/25/12 14:49:00 1/2 NS 1,000 mL 1,000 mL, Rate: IV No Longer [place] Fe[facility] 100 ml/hr, Active 2012 Medical Infuse over: 10 Center hr, Route: IV, kg, Total Volume: 1,000, Start date: 10/25/12 13:52:00, Duration: 30 day, Stop date: 11/24/12 13:51:00 atenolol 100 mg, 1 tab, PO No Longer [facility] [facility] Route: PO, Drug Active 2012 Medical form: TAB, Center Daily, Dosing Weight 78.2, kg, Start date: 10/25/12 9:00:00, Duration: 30 day, Stop date: 11/23/12 9:00:00 Protonix 40 mg, Route: IVP No Longer [facility] IVP, Drug form: Active 2012 Medical INJ, Daily, Center Dosing Weight 78.2, kg, Start date: 10/25/12 9:00:00, Duration: 30 day, Stop date: 11/23/12 9:00:00 NovoLog FlexPen 6 unit, 0.06 mL, SUB-Q No Longer [place] Route: SUB-Q, 2012 Medical Drug form: SOLN, Center TID-Before Meals, Start date: 10/25/12 7:30:00, Duration: 30 day, Stop date: 11/23/12 16:30:00 insulin lispro 6 unit, Route: SUB-Q No Longer Funez [facility] SUB-Q, 2012 Medical TID-Before Center Meals, Dosing Weight 78.2, kg, Start date: 10/25/12 7:30:00, Duration: 30 day, Stop date: 11/23/12 16:30:00 Lactated 1,000 mL, Rate: IV No Longer Dee Dee Jon [facility] Ringers IV 250 ml/hr, Active 2012 Medical 1,000 mL Infuse over: 4 Center hr, Route: IV, kg, Total Volume: 1,000, Start date: 10/25/12 5:50:00, Duration: 30 day, Stop date: 11/24/12 5:49:00 Lactated 1,000 mL, Rate: IV [facility] Longer [facility] Ringers (Bolus) 100 ml/hr, Active 2012 Medical IV 1,000 mL Infuse over: 10 Center hr, Route: IV, kg, Total Volume: 1,000, Start date: 10/25/12 5:50:00, Duration: 1 doses or times, Stop date: 10/25/12 15:49:00 insulin aspart 9 unit, 0.09 mL, SUB-Q No Longer Manlapaz [facility] Route: SUB-Q, Active 2012 Medical Drug form: SOLN, Center TID-Before Meals, Dosing Weight 78.2, kg, PRN Blood Glucose Results, Start date: 10/25/12 3:53:00, Duration: 30 day, Stop date: 11/24/12 3:52:00 glucagon 1 mg, Route: IM, IM No Longer Funez [facility] Drug form: Active 2012 Medical PDR/INJ, PRN, Center Dosing Weight 78.2, kg, PRN Blood Glucose Results, Start date: 10/25/12 3:53:00, Duration: 30 day, Stop date: 11/24/12 4:52:00 Dextrose 50% 12.5 gm, 25 mL, IVP No Longer [facility] 10/25[facility] Syringe Route: IVP, Drug Active 2012 Medical Form: INJ, Center Dosing Weight 78.2, kg, PRN, PRN Blood Glucose Results, Start date: 10/25/12 3:53:00, Duration: 30 day, Stop date: 11/24/12 4:52:00 Dextrose 50% 25 mL, Route: IVP No Longer Funez [facility] 10/25[facility] Syringe IVP, Dosing Active 2012 Medical Weight 78.2, kg, Center PRN, PRN Blood Glucose Results, Start date: 10/25/12 3:52:00, Duration: 30 day, Stop date: 11/24/12 4:51:00 glucagon 1 mg, Route: IM, IM No Longer Funez [facility] 10/25[facility] PRN, Dosing Active 2012 Medical Weight 78.2, kg, Center PRN Blood Glucose Results, Start date: 10/25/12 3:52:00, Duration: 30 day, Stop date: 11/24/12 4:51:00 Neutra-Phos 2 pkt, Route: PO No Longer Neeru [facility] PO, Drug Form: Active 2012 Medical [...] mg, 1 mL, IVP No Longer [facility] Sulfate Route: IVP, Drug Active 2012 [...] 1 tab, PO No Longer Funez [place] [facility] tartrate Route: PO, Drug Active 2012 Medical form: TAB, Q8H, Center Dosing Weight 78.2, kg, Start date: 10/24/12 16:00:00, Duration: 30 day, Stop date: 11/23/12 8:00:00 clonazepam 0.5 mg, 1 tab, PO No Longer [facility] Route: PO, Drug Active 2012 Medical form: TAB, ONCE, Center Dosing Weight 78.2, kg, Start date: 10/24/12 15:03:00, Stop date: 10/24/12 15:03:00 NIFEdipine 60 mg, 1 tab, PO No Longer [facility] extended Route: PO, Drug Active 2012 [...] 40 mg, 2 tab, PO No Longer [place] Fe[facility] Route: PO, Drug Active 2012 Medical [...] mL, Rate: IV No Longer [facility] [place] 150 ml/hr, Active 2012 Medical Injection IV Infuse over: 6.7 Center 1,000 mL hr, Route: IV, kg, Total Volume: 1,000, Start date: 10/24/12 11:50:00, Duration: 30 day, Stop date: 11/23/12 11:49:00 lisinopril 20 mg, 1 tab, PO No Longer [facility] Route: PO, Drug Active 2012 Medical [...] mg, 1 tab, PO No Longer Funez [facility] Fei Route: PO, Drug Active 2012 Medical form: TAB, Center Daily, Dosing Weight 78.2, kg, Priority: NOW, Start date: 10/24/12 10:53:00, Duration: 30 day, Stop date: 11/23/12 9:00:00 potassium 40 mEq, 2 tab, PO No Longer Funez [facility] Fe[facility] chloride Route: PO, Drug Active 2012 [...] 24 hr aspirin 200 mg, 1 supp, [place] No Longer [place] Fe[facility] Route: NH, Drug Active 2012 Medical form: SUPP, Center [...] 2,300 unit, 2.3 IV No Longer [place] eFi mL, Route: IV, Active 2012 Medical Drug [...] Duration: 1 doses or times, Dose=2.2ml/kg, Max [id number] -- "To be infused by Radiology Staff ONLY"Dose=2.2ml/ kg, Max [id number] -- "To be infused by Radiology Staff [...] Duration: 1 doses or times, Dose=2.2ml/kg, Max [id number] -- "To be infused by Radiology Staff ONLY"Dose=2.2ml/ kg, Max [id number]=[id number] -- "To be infused by Radiology Staff ONLY" Insulin 100 mL, Rate: IV No Longer Calloway Fei (regular) 0.1units/kg/hour Active 2012 Medical Titrate [...] 1,000 mL, Rate: IV No Longer Isaac [facility] 0.9% IV 1,000 100 ml/hr, Active 2012 Medical mL + M.V.I.-12 Infuse over: Center 10 mL Daily + 10.1 hr, Route: folic acid IV 1 IV, kg, Total mg Daily + Volume: 1,011.2, thiamine IV 1 Start date: 10/23/12 8:41:00, Duration: 3 day, Stop date: 10/26/12 8:40:00 Insulin regular 100 mL, Rate: IVPB No Longer Isaac [facility] 100 unit + Start Insulin Active [...] No Longer Isaac [place] Syringe Route: IVP, Drug Active 2012 Medical Form: INJ, Center Dosing Weight 113.636, kg, PRN, PRN Blood Glucose Results, Start date: 10/23/12 8:17:00, Duration: 30 day, Stop date: 11/22/12 9:16:00 normal saline 1,000 mL, Rate: IV No Longer Isaac [place] 0.9% IV 1,000 150 ml/hr, Active 2012 Medical mL Infuse over: 6.7 Center hr, Route: IV, kg, Total Volume: 1,000, Start date: 10/23/12 5:07:00, Duration: 30 day, Stop date: 11/22/12 5:06:00 NS (Bolus) IV 1,000 mL, 0 IV No Longer Kristy [facility] ml/hr, Route: Active 2012 Medical IV, Drug Form: Center INJ, Dosing Weight 113.636, kg, ONCE, STAT, Start date: 10/23/12 5:06:00, Duration: 1 doses or times, Stop date: 10/23/12 5:06:00 hydrALAZINE 10 mg, 0.5 mL, IV No Longer Funez Kamel [facility] Route: IV, Drug Active 2012 Medical form: INJ, Q4H, Center Dosing Weight 113.636, kg, PRN Other -See Comment, Start date: 10/23/12 0:38:00, Duration: 30 day, Stop date: 11/22/12 0:37:00, hypertesnion acetaminophen 650 mg, 1 supp, [place] No Longer Kristy [place] Route: NH, Drug Active 2012 Medical form: SUPP, Q6H, Center Dosing Weight 113.636, kg, PRN Fever, Start date: 10/23/12 0:37:00, Duration: 30 day, Stop date: 11/22/12 0:36:00 Dilaudid 0.5 mg, 0.25 mL, IV No Longer Dalton [facility] Route: IV, Drug Active 2012 Medical form: INJ, Q2H, Center Dosing Weight 113.636, kg, PRN Pain, Start date: 10/23/12 0:37:00, Duration: 30 day, Stop date: 11/22/12 0:36:00 metoprolol 5 5 mg, 5 mL, IVP No Longer Dee Dee Jon [facility] mg/5 ml INJ Route: IVP, Drug Active 2012 Medical form: INJ, Q3H, Center Dosing Weight 113.636, kg, PRN Hypertension, Start date: 10/23/12 0:35:00, Duration: 30 day, Stop date: 11/22/12 0:34:00 Insulin regular 2 unit, 0.02 mL, SUB-Q No Longer Isaac [facility] Route: SUB-Q, Active 2012 Medical Drug form: SOLN, Center Sliding Scale, Dosing Weight 113.636, kg, PRN Blood Glucose Results, Start date: 10/23/12 0:26:00, Duration: 30 day, Stop date: 11/22/12 1:25:00 glucagon 1 mg, Route: IM, IM No Longer Isaac [place] Drug form: Active 2012 Medical PDR/INJ, PRN, Center Dosing Weight 113.636, kg, PRN Blood Glucose Results, Start date: 10/23/12 0:26:00, Duration: 30 day, Stop date: 11/22/12 1:25:00 Dextrose 50% 25 gm, 50 mL, IVP No Longer Isaac [place] Syringe Route: IVP, Drug Active 2012 Medical Form: INJ, Center Dosing Weight 113.636, kg, PRN, PRN Blood Glucose Results, Start date: 10/23/12 0:26:00, Duration: 30 day, Stop date: 11/22/12 1:25:00 Zofran ODT 8 mg, 1 tab, PO No Longer [place] Route: PO, Drug Active 2012 Medical form: TABDIS, Center Q8H, Dosing Weight 113.636, kg, PRN Nausea, Start date: 10/23/12 0:02:00, Stop date: 11/22/12 0:01:00 heparin 5,000 unit, SUB-Q No Longer Brian [place] Route: SUB-Q, Active 2012 Medical Q8H, Dosing Center Weight 113.636, kg, Start date: 10/23/12 0:00:00, Duration: 30 day, Stop date: 11/21/12 16:00:00 carvedilol 25 Daily, No Longer [place] mg oral tablet Substitution Active 2012 Medical Allowed [place] Diovan HCT 160 1 tab, PO, PO No Longer [place] mg-12.5 mg oral Daily, 30 tab, Active 2012 Medical tablet Substitution Center Allowed, Maintenance, TAB D5W 1/2NS + KCL 1,000 mL, Rate: IV No Longer Isaac [place] 20mEq/L 1000ml 150 ml/hr, Active 2012 Medical [...] Duration: 7 day, Stop date: 10/14/12 9:00:00 [place] 325 mg-10 15 mL, Route: PO No [...] mEq, 100 mL, IVPB No Longer Bagshahi [place] chloride Route: IVPB, Active 2012 Medical Drug form: INJ, Center ONCE, Dosing Weight 118.2, kg, Total dose=20 mEq, Start date: 10/07/12 7:53:00, Duration: 1 doses or times, Stop date: 10/07/12 7:53:00, For K=3.5 - 3.9 mEq/LFor K=3.5 - 3.9 mEq/L Blistex 1 appl, Route: TOP No Longer [facility] TOP, PRN, Drug Active 2012 Medical form: STIC PRN Center Other -See Comment, Start date: 10/06/12 22:48:00, Duration: 30 day, Stop date: 11/05/12 22:47:00 Blistex Lip Route: TOP, TOP No Longer [facility] [place] Dosing Weight Active 2012 Medical 118.2, kg, PRN, Center PRN, Start date: 10/06/12 22:46:00, Duration: 30 day, Stop date: 11/05/12 22:45:00, prn Dilaudid 0.2 mg, 0.1 mL, IV No Longer Sushila Fei Route: [...] mg, 5 mL, IVP No Longer Sushila [facility] mg/5 ml INJ Route: IVP, Drug [...] mg, 1 tab, PO No Longer Sushila [place] Route: PO, Drug Active 2012 Medical form: TAB, Q12H, Center Dosing Weight 118.2, kg, Start date: 10/04/12 21:00:00, Duration: 30 day, Stop date: 11/03/12 9:00:00 [place] 325 mg-10 30 mL, Route: PO No Longer Allenson Fei mg / 15 mL oral PO, Drug Form: Active 2012 Medical solution SOLN, Dosing Center Weight 118.2, kg, Q4H, PRN Pain Score 6-10, Start date: 10/04/12 17:20:00, Duration: 30 day, Stop date: 11/03/12 17:19:00 Diovan 160 mg, 1 tab, PO No Longer Sushila [facility] Route: PO, Drug Active 2012 Medical form: TAB, Center Daily, Dosing Weight 118.2, kg, Start date: 10/04/12 14:00:00, Duration: 30 day, Stop date: 11/03/12 9:00:00 Trandate 10 mg, 2 mL, IVP No Longer Low [place] Route: IVP, Drug Active 2012 Medical form: INJ, Q4H, Center PRN Elevated BP, Start date: 10/04/12 9:05:00, Duration: 30 day, Stop date: 11/03/12 9:04:00 hydrALAZINE 20 mg, 1 mL, IVP No Longer Low [facility] Route: IVP, Drug Active 2012 Medical form: INJ, Q4H, Center Dosing Weight 118.2, kg, PRN Elevated BP, Start date: 10/04/12 9:00:00, Duration: 30 day, Stop date: 11/03/12 8:59:00, sbp > 160 heparin 5,000 unit, 1 SUB-Q No Longer Susihla Fei mL, Route: Active 2012 Medical SUB-Q, [...] 25 gm, 50 mL, IVP No Longer [place] Fe[place] Syringe Route: IVP, Drug Active 2012 Medical Form: INJ, Center Dosing Weight 118.2, kg, PRN, PRN Blood Glucose Results, Start date: 10/04/12 0:40:00, Duration: 30 day, Stop date: 11/03/12 0:39:00 glucagon 1 mg, Route: IM, IM No Longer [facility] Drug form: Active 2012 Medical PDR/INJ, PRN, Center Dosing Weight 118.2, kg, PRN Blood Glucose Results, Start date: 10/04/12 0:40:00, Duration: 30 day, Stop date: 11/03/12 0:39:00 Ofirmev 1,000 mg, 100 IV No Longer [facility] mL, Route: IV, Active 2012 Medical Drug form: INJ, Center Q6H, Start date: 10/03/12 18:00:00, Duration: 4 doses or times, Stop date: 10/04/12 12:00:00 Mefoxin 2 gm, Route: IVPB No Longer [facility] IVPB, Drug form: Active 2012 Medical INJ, ABXQ8H, [place] Start date: 10/03/12 16:00:00, Duration: 2 doses or times, Stop date: 10/04/12 0:00:00 Lopressor 5 mg, 5 mL, IV No Longer Low [facility] Route: IV, Drug Active 2012 Medical form: INJ, Q6H, Center Start date: 10/03/12 16:00:00, Duration: 30 day, Stop date: 11/02/12 10:00:00 Humulin R 100 10 unit, 0.1 mL, SUB-Q No Longer [facility] units/mL Route: SUB-Q, Active 2012 Medical injectable Drug form: [facility] solution TID-Before Meals, PRN Blood Glucose Results, Start date: 10/03/12 14:30:00, Duration: 30 day, Stop date: 11/02/12 14:29:00 Dextrose 50% in 50 mL, Route: IV No Longer [facility] 10/03[facility] Water IV IV, Start date: Active 2012 Medical 10/03/12 [place] 14:29:00, Duration: 30 day, Stop date: 11/02/12 14:28:00, PRN Blood Glucose Results Dextrose 50% in 25 mL, Route: IVP No Longer [facility] 10/03[facility] Water IV IVP, Start date: Active 2012 Medical 10/03/12 [place] 14:28:00, Duration: 30 day, Stop date: 11/02/12 14:27:00, PRN Blood Glucose Results Zofran 4 mg, 2 mL, IVP No Longer Low [place] Route: IVP, Drug Active 2012 Medical form: INJ, Q8H, Center PRN Nausea, Start date: 10/03/12 14:22:00, Duration: 30 day, Stop date: 11/02/12 14:21:00 naloxone 0.2 mg, 0.5 mL, IV No Longer [facility]sh[facility] [place] Route: IV, Drug Active 2012 Medical form: INJ, PRN, Center PRN Narcotic Reversal, Start date: 10/03/12 14:21:00, Duration: 30 day, Stop date: 11/02/12 14:20:00 hydromorphone IV, Start date: IV No Longer Low [place] 15 mg 10/03/12 Active 2012 Medical 14:19:00, Center Duration: 30, 30 ml, 118.2 Phenergan 12.5 mg, 0.5 mL, IVPB No Longer Bagshi [place] Route: IVPB, Active 2012 Medical Drug form: INJ, Center Q4H, PRN Nausea, Start date: 10/03/12 14:08:00, Duration: 30 day, Stop date: 11/02/12 14:07:00 Phenergan 12.5 mg, 0.5 mL, IM No Longer [facility] [place] Route: IM, Drug Active 2012 Medical form: INJ, Q4H, Center PRN Nausea, Start date: 10/03/12 14:07:00, Duration: 30 day, Stop date: 11/02/12 14:06:00 Benadryl 25 mg, 0.5 mL, IM No Longer Sushila [place] Route: IM, Drug Active 2012 Medical form: INJ, Center Bedtime, PRN Insomnia, Start date: 10/03/12 14:04:00, Duration: 30 day, Stop date: 11/02/12 14:03:00 Lactated 1,000 mL, Rate: IV No Longer Low [place] 125 ml/hr, Active 2012 Medical Injection IV Infuse over: 8 Center 1,000 mL hr, Route: IV, kg, Total Volume: 1,000, Start date: 10/03/12 14:00:00, Duration: 30 day, Stop date: 11/02/12 13:59:00 ondansetron 4 mg, 2 mL, IVP No Longer Jose [facility] Route: IVP, Drug Active 2012 Medical [...] mg, 0.25 mL, IVP No Longer Jose [facility] Route: IVP, Drug Active 2012 Medical [...] IVPB No Longer Sushila [place] IVPB, Drug form: Active 2012 Medical INJ, PRE OP, Center Priority: STAT, Start date: 10/03/12 5:50:00, Duration: 1 day, Stop date: 10/04/12 5:49:00 Mobic 15 mg 10 mg, PO, PO Active [place] oral tablet Daily, 30 tab, 2012 Medical Substitution Center Allowed, TAB Zetia Daily, Active [facility] Substitution 2011 Medical Allowed Center Klor-Con 10 10 mEq, 1 tab, PO Active [facility] oral tablet, PO, Daily, 180 2011 Medical extended tab, Center release Substitution Allowed, ERTAB ferrous 324 mg, 1 tab, PO Active [facility] gluconate 324 PO, Daily, 100 2011 Medical mg oral tablet tab, Center Substitution Allowed, TAB Lasix 40 mg 40 mg, 1 tab, PO Active [facility] oral tablet PO, Daily, 30 2011 Medical tab, Center Substitution Allowed, TAB Cymbalta 60 mg 60 mg, 1 cap, PO Active [facility] oral delayed PO, BID, 30 cap, 2011 Medical release capsule Substitution Center Allowed, ECCAP Crestor 20 mg 20 mg, 1 tab, PO Active [facility] oral tablet PO, Daily, 30 2011 Medical tab, Center Substitution Allowed, TAB Flexeril 10 mg 10 mg, 1 tab, PO Active [facility] oral tablet PO, TID, PRN, 30 2011 Medical tab, for spasm, Center Substitution Allowed, TAB Lyrica 150 mg 150 mg, 1 cap, PO Active [facility] oral capsule PO, BID, 90 cap, 2011 Medical Substitution Center Allowed, CAP Klonopin 0.5 mg 0.5 mg, 1 tab, PO Active [place] oral tablet PO, TID, 2011 Medical Substitution Center Allowed, TAB Diovan 160 mg 160 mg, 1 tab, PO Active [facility] oral tablet PO, Daily, 30 2011 [...] Allowed NovoLog Substitution Active [place] Allowed 2011 [facility] Center Levemir FlexPen Substitution Active [facility] Allowed 2011 [facility] Allergies, Adverse Reactions, Alerts Substance Category Reaction Severity Reaction Status Date Comments Source type Reported NKDA drug Allergy Active [facility] Immunizations Immunization Date Given Site Status Last Updated Comments Source influenza virus 07/14/2013 completed [facility] vaccine, [facility] inactivated Center pneumococcal 07/14/2013 completed [facility] 23-valent vaccine [facility] Results Order Name Results Value Reference Date Interpretation Comments Source Range CHEMISTRY U Preg Negative Negative 08/13 Normal [facility] (08/13/2013 13:30:00) [place] URINALYSIS UA RBC 0-2 /HPF 0 - 2 08/13 Normal [facility]2012 [facility] URINALYSIS UA WBC 3-5 /HPF None Seen 08/13 Normal [facility] URINALYSIS UA Sq Epi Few /LPF Few 08/13 Normal [facility]2012 [facility] URINALYSIS Micro? Performed 08/13 Normal [facility] (08/13/2013 13:30:00) Center URINALYSIS UA Hyal Cast 0-2 0 - 2 08/13 Normal [facility] (08/13/2013 13:30:00) Center URINALYSIS UA Glucose 250 mg/dL Negative 08/13 [facility] URINALYSIS UA Blood Negative Negative 08/13 Normal [facility] (08/13/2013 13:30:00) Center URINALYSIS UA Ketones >=80 mg/dL Negative 08/13 [facility] URINALYSIS UA 0.2 EU/dL 0.1 - 1.0 08/13 Normal [facility] Urobilinogen /2012 [facility] URINALYSIS UA Nitrite Negative Negative 08/13 Normal [facility] (08/13/2013 13:30:00) [place] URINALYSIS UA Bili Small 1 Negative 08/13 ABN 1Result Comment: Interpret positive bilirubin results with caution. Confirmatory testing not possible due to the unavailability of reagent. Correlation with Medical *ABN* serum chemistry results recommended. [place] (08/13/2013 13:30:00) URINALYSIS UA Leuk Est Negative Negative 08/13 Normal [facility] (08/13/2013 13:30:00) [place] URINALYSIS UA Protein Negative Negative 08/13 Normal [facility] (08/13/2013 13:30:00) [place] URINALYSIS UA pH 6.0 5.0 - 8.0 08/13 Normal [facility] URINALYSIS UA Spec Grav 1.020 <=1.030 08/13 Normal [facility] URINALYSIS UA Color Yellow Yellow 08/13 Medical *NA* [place] (08/13/2013 13:30:00) URINALYSIS UA Turbidity Clear Clear 08/13 Normal [facility] (08/13/2013 13:30:00) [place] CHEMISTRY BE Mark 1 mMol/L -2-2 - 2 08/13 Normal [facility] CHEMISTRY pO2 Mark 29 mm[Hg] 20 - 49 08/13 Normal [facility] CHEMISTRY O2 Sat Mark 55.9 % 40.0 - 08/13 Normal [facility] 70.0 [facility] CHEMISTRY Temp Mark 37.0 Abby 08/13 [facility] CHEMISTRY HCO3 Mark 26 mMol/L 22 - 26 08/13 Normal [facility] CHEMISTRY pCO2 Mark 41 mm[Hg] 38 - 52 08/13 Normal [facility] CHEMISTRY pH Mark 7.41 7.28 - 08/13 Normal [facility] 7.42 [facility] CHEMISTRY eGFR 60 08/13 2Result Comment: The eGFR is calculated using the CKD-EPI formula. In most young, healthy individuals the eGFR will be >90 mL/ min/1.73m2. The eGFR declines with age. An eGFR of 60-89 may be normal in [facility] mL/min/1.7 some populations, particularly the elderly, for whom the CKD-EPI formula has not been extensively validated. Use of the eGFR is not recommended in the following populations: [address] Individuals with unstable creatinine concentrations, including [...] 25 meq/L 24 - 32 08/13 Normal [facility] CHEMISTRY Chloride Lvl 98 meq/L 95 - 109 08/13 Normal [facility] CHEMISTRY BUN 9 mg/dL 7 - 22 08/13 Normal [facility]2012 [facility] CHEMISTRY Calcium Lvl 9.1 mg/dL 8.5 - 10.5 08/13 Normal [facility]2012 [facility] CHEMISTRY Glucose Lvl 301 mg/dL 70 - 99 08/13 [place] 3Interpretive Data: Adult reference range values reflect the clinical guidelines of the [place] [employer]. [facility] CHEMISTRY Potassium Lvl 3.8 meq/L 3.5 - 5.1 08/13 Normal [facility] CHEMISTRY Sodium Lvl 134 meq/L 135 - 145 08/13 LOW [facility]2012 [facility] CHEMISTRY Creatinine 1.1 mg/dL 0.5 - 1.4 08/13 Normal [facility] CHEMISTRY Bili Total 0.6 mg/dL 0.2 - 1.3 08/13 Normal [facility] CHEMISTRY ASPARTATE 17 unit/L 0 - 37 08/13 Normal [facility] TRANSAMINASE [facility] CHEMISTRY ALANINE 22 unit/L 0 - 65 08/13 Normal [facility] AMINOTRANSFER [facility] CHEMISTRY Albumin Lvl 3.5 g/dL 3.5 - 5.0 08/13 Normal [facility] CHEMISTRY Alk Phos 130 unit/L 39 - 136 08/13 Normal [facility] CHEMISTRY Total Protein 7.8 g/dL 6.4 - 8.4 08/13 Normal [facility] CHEMISTRY B/C Ratio 8 6 - 25 08/13 Normal [facility] CHEMISTRY AGAP 14.8 meq/L 10.0 - 12 Normal [facility] 20.0 [facility] CHEMISTRY Globulin 4.3 g/dL 2.0 - 4.0 HI [facility] CHEMISTRY A/G Ratio 0.8 0.7 - 1.6 12 Normal [facility] HEMATOLOGY Monocytes # 0.8 K/CMM 0.0 - 0.8 12 Normal [facility] HEMATOLOGY Eosinophils # 0.0 K/CMM 0.0 - 0.5 08/13 Normal [facility] HEMATOLOGY Basophils # 0.0 K/CMM 0.0 - 0.2 08/13 Normal [facility] HEMATOLOGY Basophils 0.1 % 0.0 - 1.0 08/13 Normal [facility] HEMATOLOGY Lymphocytes # 1.4 K/CMM 1.0 - 5.5 08/13 [facility] HEMATOLOGY Segs-Bands # 10.5 K/CMM 1.5 - 8.1 08/13 [facility] HEMATOLOGY Monocytes 6.3 % 2.0 - 12.0 08/13 Normal [facility] HEMATOLOGY Eosinophils 0.2 % 0.0 - 4.0 08/13 Normal [facility] HEMATOLOGY Lymphocytes 11.3 % 20.0 - 1208 LOW [facility] 40.0 [facility] HEMATOLOGY Segs 82.1 % 45.0 - 12/08 [facility] 75.0 [facility] HEMATOLOGY WBC X 10x3 12.7 K/CMM 3.7 - 10.4 08/13 [facility] HEMATOLOGY Hct 37.0 % 36.0 - 12/08 Normal [facility] 48.0 [facility] HEMATOLOGY RBC X 10x6 4.36 M/CMM 4.20 - 12/08 Normal [facility] 5.40 /2012 [facility] HEMATOLOGY Hgb 12.6 g/dL 12.0 - 12/08 Normal [facility] 16.0 /2012 [facility] HEMATOLOGY MCV 84.8 fL 81.0 - 1208 [facility] 99.0 /2012 [facility] HEMATOLOGY MCH 28.8 pg 27.0 - 12 [facility] 31.0 /2012 [facility] HEMATOLOGY MCHC 34.0 g/dL 32.0 - 12/08 Normal [facility] 36.0 [facility] HEMATOLOGY Platelet 238 K/CMM 133 - 450 12 [facility] HEMATOLOGY MPV 9.5 fL 7.4 - 10.4 08/13 [facility] HEMATOLOGY RDW 13.1 % 11.5 - 08/13 Normal [facility] 14. [facility] Center BEDSIDE Gluc POC Notify 07/26 [facility] GLUCOSE Comment 1 RN/ /2012 Medical TESTING Center BEDSIDE Glucose POC 274 mg/dL 70 - 99 07/26 [place] 1Interpretive [facility] GLUCOSE Data: Medical TESTING Center Upper Reportable Limit: 200 mg/dL. BEDSIDE Glucose POC 146 mg/dL 70 - 99 07/15 [place] 2Interpretive [facility] GLUCOSE Data: Medical TESTING Center Upper Reportable Limit: 200 mg/dL. BEDSIDE Gluc POC Notify 07/15 [facility] GLUCOSE Comment 1 RN/ /2012 Medical TESTING Center BEDSIDE Glucose POC 140 mg/dL 70 - 99 07/14 [place] 3Interpretive [facility] GLUCOSE Data: Medical TESTING Center Upper Reportable Limit: 200 mg/dL. BEDSIDE Gluc POC Notify 07/14 [facility] GLUCOSE Comment 1 RN/ [facility] TESTING Center BEDSIDE Gluc POC Notify 07/14 [facility] GLUCOSE Comment 1 RN/ /2012 Medical TESTING Center BEDSIDE Glucose POC 44 mg/dL 70 - 99 07/14 LOW 4Interpretive [facility] GLUCOSE Data: Medical TESTING Center Upper Reportable Limit: 200 mg/dL. IMMUNOLOGY [place]-HIV Negative Negative 07/14 [facility] 09/07 [facility] *NA* Center (07/14/2013 00:27:00) IMMUNOLOGY [place]-Hep C Negative Negative 07/14 [facility] ([facility]14[facility]2013 00:27:00) CHEMISTRY eGFR 109 07/13 5Result Comment: The eGFR is calculated using the CKD-EPI formula. In most young, healthy individuals the eGFR will be >90 mL/ min/1.73m2. The eGFR declines with age. An eGFR of 60-89 may be normal in [facility] mL/min/1. some populations, particularly the elderly, [...] 135 meq/L 135 - 145 07/13 Normal [facility] CHEMISTRY Chloride Lvl 95 meq/L 95 - 109 07/13 Normal [facility] CHEMISTRY AGAP 16.5 meq/L 10.0 - 07/13 Normal [facility] 20.0 [facility] CHEMISTRY Glucose Lvl 322 mg/dL 70 - 99 07/13 [place] 8Interpretive Data: Adult reference range values reflect the clinical guidelines of the [place] [employer]. [facility] CHEMISTRY Creatinine 0.6 mg/dL 0.5 - 1.4 07/13 Normal [facility] CHEMISTRY BUN 6 mg/dL 7 - 22 07/13 LOW 2012 [facility] CHEMISTRY Calcium Lvl 8.6 mg/dL 8.5 - 10.5 07/13 Normal [facility] CHEMISTRY CO2 27 meq/L 24 - 32 07/13 Normal [facility] CHEMISTRY Potassium Lvl 3.5 meq/L 3.5 - 5.1 07/13 Normal [facility]2012 [facility] INFECTIOUS C difficile Negative 1 Negative 07/13 Normal 1Interpretive Data: Delectable [employer] Clostridium difficile assay utilizes loop-mediated isothermal DNA amplification (LAMP) technology to detect a 204 bp region of the tcdA gene within the PaLoc gene [facility] segment present in all known toxigenic C. difficile strains. [facility] (07/13/2013 00:00:59) [place] The assay utilizes FDA cleared IVD reagents. Performance characteristics have been verified by the [facility] within the [facility]. The [facility] is authorized under the Clinical Laboratory Improvement Amendment of 1988 (CLIA-88) to perform high complexity testing. CHEMISTRY Lactic Acid 1.9 mMol/L 0.5 - 2.2 07/12 Normal [facility] CHEMISTRY eGFR 88 07/12 6Result Comment: The eGFR is calculated using the CKD-EPI formula. In most young, healthy individuals the eGFR will be >90 mL/ min/1.73m2. The eGFR declines with age. An eGFR of 60-89 may be normal in [facility] mL/min/1. some populations, particularly the elderly, for whom the CKD-EPI formula has not been extensively validated. Use of the eGFR is not recommended in the following populations: [facility] Individuals with unstable creatinine concentrations, including [...] CHEMISTRY Troponin-I null 0.00 - 11 Normal [facility] 0.40 [facility] HEMATOLOGY Basophils # 0.0 K/CMM 0.0 - 0.2 07/12 Normal [facility] HEMATOLOGY Eosinophils # 0.3 K/CMM 0.0 - 0.5 07/12 Normal [facility] HEMATOLOGY Monocytes # 1.0 K/CMM 0.0 - 0.8 07/12 [place] [facility] HEMATOLOGY Lymphocytes # 3.0 K/CMM 1.0 - 5.5 07/12 Normal [facility] HEMATOLOGY Segs-Bands # 6.4 K/CMM 1.5 - 8.1 07/12 Normal [facility] HEMATOLOGY Basophils 0.4 % 0.0 - 1.0 07/12 Normal [facility] HEMATOLOGY Eosinophils 2.8 % 0.0 - 4.0 07/12 Normal [facility] HEMATOLOGY Plt Morph Normal 07/12 [facility] (07/12/2013 16:29:10) [place] HEMATOLOGY RBC Morph Normal 07/12 [facility] (07/12/2013 16:29:10) Center HEMATOLOGY Monocytes 9.4 % 2.0 - 12.0 07/12 Normal [facility] HEMATOLOGY Lymphocytes 27.9 % 20.0 - 07/12 Normal [place] 40.0 [facility] HEMATOLOGY Segs 59.5 % 45.0 - 07/12 Normal [facility] 75.0 [facility] HEMATOLOGY MCV 85.3 fL 81.0 - 07/12 [facility] 99.0 [facility] HEMATOLOGY Hct 41.2 % 36.0 - 07/12 Normal [place] 48.0 [facility] HEMATOLOGY Hgb 13.6 g/dL 12.0 - 07/12 Normal [facility] 16.0 [facility] HEMATOLOGY RBC X 10x6 4.84 M/CMM 4.20 - 11 Normal [facility] 5.40 /2012 Medical [place] HEMATOLOGY MPV 9.4 fL 7.4 - 10.4 07/12 Normal [facility] HEMATOLOGY Platelet 225 K/CMM 133 - 450 07/12 Normal [facility] HEMATOLOGY MCH 28.1 pg 27.0 - 07/12 Normal [facility] 31.0 Medical [place] HEMATOLOGY MCHC 33.0 g/dL 32.0 - 07/12 Normal [facility] 36.0 /2012 [facility] HEMATOLOGY RDW 12.7 % 11.5 - 07/12 Normal [facility] 14.5 [facility] HEMATOLOGY WBC X 10x3 10.7 K/CMM 3.7 - 10.4 07/12 [place] [facility] CHEMISTRY AGAP 12.4 meq/L 10.0 - 07/12 Normal [facility] . [facility] CHEMISTRY Calcium Lvl 8.8 mg/dL 8.5 - 10.5 07/12 Normal [facility] CHEMISTRY Chloride Lvl 102 meq/L 95 - 109 07/12 Normal [facility] CHEMISTRY Potassium Lvl 3.4 meq/L 3.5 - 5.1 07/12 LOW [facility] CHEMISTRY CO2 30 meq/L 24 - 32 07/12 Normal [facility] CHEMISTRY Sodium Lvl 141 meq/L 135 - 145 07/12 Normal [facility] CHEMISTRY Creatinine 0.8 mg/dL 0.5 - 1.4 07/12 Normal [facility] CHEMISTRY BUN 6 mg/dL 7 - 22 07/12 LOW [facility] CHEMISTRY Glucose Lvl 163 mg/dL 70 - 99 07/12 [place] 9Interpretive Data: Adult reference range values reflect the clinical guidelines of the [place] [employer]. Medical Center IMMUNOLOGY CDC-HIV 1/2 Negative Negative 07/12 Medical *NA* Center (07/12/2013 16:02:06) CHEMISTRY Calcium Lvl 8.4 mg/dL 8.5 - 10.5 07/12 LOW [facility] CHEMISTRY AGAP 10.4 meq/L 10.0 - 07/12 Normal [facility] CHEMISTRY eGFR 76 07/12 7Result Comment: The eGFR is calculated using the CKD-EPI formula. In most young, healthy individuals the eGFR will be >90 mL/ min/1.73m2. The eGFR declines with age. An eGFR of 60-89 may be normal in [facility] mL/min/1.7 some populations, particularly the elderly, for whom the CKD-EPI formula has not been extensively validated. Use of the eGFR is not recommended in the following populations: [address] Individuals with unstable creatinine concentrations, including [...] 140 meq/L 135 - 145 07/12 Normal [facility] CHEMISTRY Chloride Lvl 103 meq/L 95 - 109 07/12 Normal [facility] CHEMISTRY Potassium Lvl 3.4 meq/L 3.5 - 5.1 07/12 LOW [facility]2012 [facility] CHEMISTRY BUN 9 mg/dL 7 - 22 07/12 Normal [facility] CHEMISTRY Creatinine 0.9 mg/dL 0.5 - 1.4 07/12 Normal [place] [facility] CHEMISTRY Glucose Lvl 296 mg/dL 70 - 99 07/12 [place] 10Interpretive Data: Adult reference range values reflect the clinical guidelines of the [place] [employer]. [facility] CHEMISTRY CO2 30 meq/L 24 - 32 07/12 Normal [facility] CHEMISTRY Troponin-I null 0.00 - 11 Normal [facility] 0.40 [facility] CHEMISTRY Lipase Lvl 76 unit/L 73 - 393 07/12 Normal [facility] CHEMISTRY B/C Ratio 11 6 - 25 07/12 Normal [facility] CHEMISTRY ASPARTATE 25 unit/L 0 - 37 07/[address] [facility] CHEMISTRY Bili Total 0.4 mg/dL 0.2 - 1.3 07/12 Normal [facility] CHEMISTRY Alk Phos 119 unit/L 39 - 136 07/12 Normal [facility] CHEMISTRY Albumin Lvl 3.9 g/dL 3.5 - 5.0 11/06 Normal [facility] CHEMISTRY ALANINE 29 unit/L 0 - 65 07/12 Normal [facility] CHEMISTRY Total Protein 8.1 g/dL 6.4 - 8.4 07/12 Normal [facility] CHEMISTRY Globulin 4.2 g/dL 2.0 - 4.0 07/12 [place] [facility] CHEMISTRY A/G Ratio 0.9 0.7 - 1.6 07/12 Normal 2012 [facility] HEMATOLOGY Monocytes # 0.6 K/CMM 0.0 - 0.8 07/12 Normal [facility] HEMATOLOGY Segs-Bands # 9.5 K/CMM 1.5 - 8.1 07/12 [place] 2012 [facility] HEMATOLOGY Eosinophils # 0.2 K/CMM 0.0 - 0.5 07/12 Normal [facility] HEMATOLOGY Lymphocytes # 2.1 K/CMM 1.0 - 5.5 07/12 Normal [facility] HEMATOLOGY Basophils 0.2 % 0.0 - 1.0 07/12 Normal [facility] HEMATOLOGY Neut Vac Slight None Seen 07/12 ABN [facility] *ABN* [place] (07/12/2013 03:30:00) HEMATOLOGY Hypochrom Slight None Seen 07/12 Normal [facility] (07/12/2013 03:30:00) [place] HEMATOLOGY Basophils # 0.0 K/CMM 0.0 - 0.2 07/12 Normal [facility] HEMATOLOGY RBC Morph Normal 07/12 Normal [facility] (07/12/2013 03:30:00) [place] HEMATOLOGY Eosinophils 1.6 % 0.0 - 4.0 07/12 Normal [facility] HEMATOLOGY Monocytes 4.6 % 2.0 - 12.0 07/12 Normal [facility] HEMATOLOGY Segs 76.6 % 45.0 - 07/12 [place] [facility] 75.0 [facility] HEMATOLOGY Lymphocytes 17.0 % 20.0 - 07/12 LOW [facility] 40.0 [facility] HEMATOLOGY Plt Morph Normal 07/12 Normal [facility] (07/12/2013 03:30:00) Center HEMATOLOGY MCHC 32.4 g/dL 32.0 - 07/12 Normal [place] 36.0 [facility] HEMATOLOGY MCH 27.4 pg 27.0 - 07/12 Normal [facility] 31.0 /2012 [facility] HEMATOLOGY RDW 12.7 % 11.5 - 07/12 Normal [facility] 14.5 /2012 [facility] HEMATOLOGY Platelet 235 K/CMM 133 - 450 07/12 Normal [facility] HEMATOLOGY MPV 9.4 fL 7.4 - 10.4 07/12 Normal [facility] HEMATOLOGY Hgb 12.9 g/dL 12.0 - 07/12 Normal [facility] 16.0 /2012 [facility] HEMATOLOGY MCV 84.3 fL 81.0 - 07/12 Normal [facility] 99.0 /2012 [facility] HEMATOLOGY Hct 39.6 % 36.0 - 07/12 Normal [facility] 48.0 /2012 [facility] HEMATOLOGY WBC X 10x3 12.4 K/CMM 3.7 - 10.4 07/12 [place] [facility] HEMATOLOGY RBC X 10x6 4.70 M/CMM 4.20 - 07/12 Normal [facility] 5.40 [facility] CHEMISTRY U Preg Negative Negative 07/12 Normal [facility] (07/12/2013 03:00:00) Center URINALYSIS UA Leuk Est Negative Negative 07/12 Normal [facility] (07/12/2013 03:00:00) Center URINALYSIS UA 0.2 EU/dL 0.1 - 1.0 07/12 Normal [facility] [facility] URINALYSIS UA Nitrite Negative Negative 07/12 Normal [facility] (07/12/2013 03:00:00) Center URINALYSIS UA Bili Negative Negative 07/12 [facility] *NA* Center (07/12/2013 03:00:00) URINALYSIS UA pH 6.0 5.0 - 8.0 07/12 Normal [facility] URINALYSIS UA Protein Negative Negative 07/12 Normal [facility] mg/dL [facility] URINALYSIS UA Glucose >=1000 Negative 07/12 ABN [facility] mg/dL [facility] URINALYSIS UA Ketones 15 mg/dL Negative 07/12 ABN [facility] URINALYSIS UA Spec Grav 1.020 <=1.030 07/12 Normal [facility] URINALYSIS UA Blood Negative Negative 07/12 Normal [facility] (07/12/2013 03:00:00) [place] URINALYSIS UA Color Yellow Yellow 07/12 [facility] *NA* [place] (07/12/2013 03:00:00) URINALYSIS UA Turbidity Clear Clear 07/12 Normal [facility] (07/12/2013 03:00:00) [place] URINALYSIS UA RBC 0-2 /HPF 0 - 2 07/12 Normal [facility] URINALYSIS UA WBC 3-5 /HPF None Seen 07/12 Normal 2012 [facility] URINALYSIS UA Sq Epi Many /LPF Few 07/12 ABN [facility] URINALYSIS UA Bacteria Few /HPF None Seen 07/12 Normal [facility] URINALYSIS UA [place] Yeast Moderate None Seen 07/12 [facility] URINALYSIS Micro? Performed 07/12 Normal [facility] (07/12/2013 03:00:00) [place] Abdomen/Pel Abdomen/Pelvi EXAM: CT ABDOMEN WITH CONTRAST 07/12 - [facility] vis w s w contrast - Medical contrast CT CT EXAM: CT PELVIS WITH CONTRAST This report was dictated by a [employer] Assistant/Fellow. I have personally reviewed the images as [...] mg/dL 70 - 99 04/03 [place] 1Interpretive [facility] GLUCOSE Lifscn /2012 Data: Medical TESTING Center Upper Reportable Limit: 200 mg/dL. BEDSIDE Comment2 Sliding 04/03 [facility] [place] GLUCOSE Scale /2012 [facility] Center BEDSIDE Comment1 Notify 04/[address] [facility] GLUCOSE RN/MD /2012 Medical TESTING Center BEDSIDE Comment1 Notify 04/[address] [facility] GLUCOSE RN/MD /2013 [facility] BEDSIDE Gluc POC 198 mg/dL 70 - 99 04/03 HI 2Interpretive [facility] GLUCOSE Lifscn Data: [facility] [place] Upper Reportable Limit: 200 mg/dL. BEDSIDE Comment2 Sliding 04/03 NA [facility] GLUCOSE Scale [facility] TESTING Center Abdomen 2 Abdomen 2 EXAM: XR ABDOMEN 1 VIEW 04/03 - [facility] views - Medical Center DATE: March [...] Cho MD. BEDSIDE Comment2 Sliding 04/03 NA [facility] GLUCOSE Scale /2012 [facility] TESTING Center BEDSIDE Comment1 Notify 04/03 NA [facility] GLUCOSE RN/ /2012 [facility] BEDSIDE Gluc POC 182 mg/dL 70 - 99 04/03 HI 3Interpretive [facility] GLUCOSE Lifscn Data: [facility] Upper Reportable Limit: 200 mg/dL. CHEMISTRY Troponin-T null 0.000 - 04/03 Normal [facility] 0.100 [facility] CHEMISTRY Troponin-I null 0.00 - 04/03 Normal [facility] 0.40 [facility] CHEMISTRY Total CK 41 unit/L 12 - 191 04/03 Normal [facility] CHEMISTRY Creatinine 0.6 mg/dL 0.5 - 1.4 04/03 Normal [facility] Lvl [facility] CHEMISTRY Sodium Lvl 137 meq/L 135 - 145 04/03 Normal [facility] CHEMISTRY CO2 25 meq/L 24 - 32 04/03 Normal [facility] CHEMISTRY Calcium Lvl 8.2 mg/dL 8.5 - 10.5 04/03 LOW [facility] CHEMISTRY AGAP 17.9 meq/L 10.0 - 04/03 Normal [facility] 20.0 [facility] Center CHEMISTRY Potassium Lvl 3.9 meq/L 3.5 - 5.1 04/03 Normal [facility] CHEMISTRY Chloride Lvl 98 meq/L 95 - 109 04/03 Normal [facility] CHEMISTRY Glucose Lvl 266 mg/dL 70 - 99 04/03 HI 6Interpretive Data: Adult reference range values reflect the clinical guidelines of the [place] [employer]. [facility] CHEMISTRY BUN 3 mg/dL 7 - 22 04/03 LOW [facility] CHEMISTRY eGFR 109 04/03 NA 4Result Comment: The eGFR is calculated using the CKD-EPI formula. In most young, healthy individuals the eGFR will be > 90 mL/min/1.73m2. The eGFR declines with age. An eGFR of 60-89 may be normal in [facility] mL/min/1.7 some populations, particularly the elderly, for whom the CKD-EPI formula has not been extensively validated. Use of the eGFR is not recommended in the following populations: [place] [id number] Center Individuals with unstable creatinine concentrations, including [...] HEMATOLOGY Hgb 10.5 g/dL 12.0 - 04/03 [facility] 16.0 [facility] HEMATOLOGY RBC 4.22 M/CMM 4.20 - 04/03 Normal [facility] 5.40 /2012 [facility] HEMATOLOGY WBC 10.3 K/CMM 3.7 - 10.4 04/03 Normal [facility] HEMATOLOGY Hct 33.5 % 36.0 - 04/03 [facility] 48.0 [facility] HEMATOLOGY MPV 8.8 fL 7.4 - 10.4 04/03 Normal [facility] HEMATOLOGY Platelet 276 K/CMM 133 - 450 04/03 Normal [facility] HEMATOLOGY RDW 18.7 % 11.5 - 04/03 HI [facility] 14.5 [facility] HEMATOLOGY MCHC 31.2 g/dL 32.0 - 04/03 [facility] 36.0 [facility] HEMATOLOGY MCH 24.8 pg 27.0 - 04/03 [facility] 31.0 [facility] HEMATOLOGY MCV 79.5 fL 81.0 - 04/03 LOW [place] 99.0 [facility] HEMATOLOGY Segs 58.6 % 45.0 - 04/03 Normal [place] 75.0 [facility] HEMATOLOGY Lymphocytes 29.9 % 20.0 - 04/03 Normal [place] 40.0 [facility] HEMATOLOGY Basophils 1.3 % 0.0 - 1.0 04/03 HI [facility] HEMATOLOGY Lymphocytes # 3.1 K/CMM 1.0 - 5.5 04/03 Normal [facility] HEMATOLOGY Segs-Bands # 6.0 K/CMM 1.5 - 8.1 04/03 Normal [facility] HEMATOLOGY Eosinophils 2.8 % 0.0 - 4.0 04/03 Normal [facility] HEMATOLOGY Eosinophils # 0.3 K/CMM 0.0 - 0.5 04/03 Normal [facility] HEMATOLOGY Monocytes # 0.8 K/CMM 0.0 - 0.8 04/03 Normal [facility] HEMATOLOGY Basophils # 0.1 K/CMM 0.0 - 0.2 04/03 Normal [facility] HEMATOLOGY Monocytes 7.4 % 2.0 - 12.0 04/03 Normal [facility] CHEMISTRY Troponin-I null 0.00 - 04/03 Normal [facility] 0.40 [facility] CHEMISTRY Total CK 51 unit/L 12 - 191 04/03 Normal [facility] CHEMISTRY Troponin-T null 0.000 - 04/03 Normal 0.100 [facility] CHEMISTRY Bili Direct 0.1 mg/dL 0.0 - 0.3 04/03 Normal [facility] CHEMISTRY Bili Total 0.4 mg/dL 0.2 - 1.3 04/03 Normal [facility] CHEMISTRY Bili Indirect 0.3 mg/dL 0.0 - 1.0 04/03 Normal [facility] CHEMISTRY ALT 22 unit/L 0 - 65 04/03 Normal [facility] CHEMISTRY AST 31 unit/L 0 - 37 04/03 Normal [facility] CHEMISTRY Lipase Lvl 54 unit/L 73 - 393 04/03 LOW [facility] CHEMISTRY Troponin-I null 0.00 - 04/02 Normal [place] 0.40 [facility] CHEMISTRY Total CK 24 unit/L 12 - 191 04/02 Normal [facility] CHEMISTRY AGAP 17.5 meq/L 10.0 - 04/02 Normal [facility] 20.0 [facility] CHEMISTRY eGFR 88 04/02 NA 5Result Comment: The eGFR is calculated using the CKD-EPI formula. In most young, healthy individuals the eGFR will be > 90 mL/min/1.73m2. The eGFR declines with age. An eGFR of 60-89 may be normal in [facility] mL/min/1.7 some populations, particularly the elderly, for whom the CKD-EPI formula has not been extensively validated. Use of the eGFR is not recommended in the following populations: [place] [id number] Center Individuals with unstable creatinine concentrations, including [...] 0.8 mg/dL 0.5 - 1.4 04/02 Normal [facility] Lvl [facility] CHEMISTRY Potassium Lvl 3.5 meq/L 3.5 - 5.1 04/02 Normal [facility] CHEMISTRY Chloride Lvl 97 meq/L 95 - 109 04/02 Normal [facility] CHEMISTRY Glucose Lvl 163 mg/dL 70 - 99 04/02 HI 7Interpretive Data: Adult reference range values reflect the clinical guidelines of the [place] [employer]. [facility] CHEMISTRY BUN 2 mg/dL 7 - 22 04/02 LOW [facility] CHEMISTRY Sodium Lvl 136 meq/L 135 - 145 04/02 Normal [facility] CHEMISTRY Calcium Lvl 8.6 mg/dL 8.5 - 10.5 04/02 Normal [facility] CHEMISTRY CO2 25 meq/L 24 - 32 04/02 Normal [facility] HEMATOLOGY Platelet 378 K/CMM 133 - 450 04/02 Normal [facility] HEMATOLOGY MCHC 33.4 g/dL 32.0 - 04/02 Normal [facility] 36.0 [facility] HEMATOLOGY RDW 17.3 % 11.5 - 04/02 HI [facility] 14. [facility] HEMATOLOGY MCV 76.0 fL 81.0 - 04/02 [facility] [place] 99.0 /2012 [facility] HEMATOLOGY MCH 25.4 pg 27.0 - 04/02 [facility] 31.0 /2012 [facility] HEMATOLOGY Hct 34.2 % 36.0 - 04/02 [facility] 48.0 /2012 [facility] HEMATOLOGY RBC 4.50 M/CMM 4.20 - 04/02 Normal [facility] 5.40 /2012 [facility] HEMATOLOGY Hgb 11.4 g/dL 12.0 - 04/02 [facility] 16.0 [facility] HEMATOLOGY WBC 9.0 K/CMM 3.7 - 10.4 04/02 Normal [facility] HEMATOLOGY MPV 8.4 fL 7.4 - 10.4 04/02 Normal [facility] HEMATOLOGY Microcyte 2+ None Seen 04/02 ABN [facility] *ABN* Center (04/02/2013 17:09:00) HEMATOLOGY Basophils # 0.1 K/CMM 0.0 - 0.2 04/02 Normal [facility] HEMATOLOGY Eosinophils # 0.1 K/CMM 0.0 - 0.5 04/02 Normal [facility] HEMATOLOGY Monocytes # 0.7 K/CMM 0.0 - 0.8 04/02 Normal [facility] HEMATOLOGY Lymphocytes # 1.4 K/CMM 1.0 - 5.5 04/02 Normal [facility] HEMATOLOGY Segs-Bands # 6.7 K/CMM 1.5 - 8.1 04/02 Normal [facility] HEMATOLOGY Basophils 1.3 % 0.0 - 1.0 04/02 HI [facility] HEMATOLOGY Lymphocytes 15.2 % 20.0 - 04/02 [facility] 40.0 [facility] HEMATOLOGY Segs 74.3 % 45.0 - 04/02 [facility] 75.0 [facility] HEMATOLOGY Eosinophils 1.6 % 0.0 - 4.0 04/02 Normal [facility] HEMATOLOGY Monocytes 7.6 % 2.0 - 12.0 04/02 [facility] Chest 1view Chest 1view EXAM: XR CHEST 1 VIEW 04/02 - - [facility] Center DATE: 2013-04-02 1638 hours Read by: [...] mg/dL 70 - 99 03/09 HI 1Interpretive [facility] GLUCOSE Lifscn Data: [facility] Center Upper Reportable Limit: 200 mg/dL. BEDSIDE Comment1 Notify 03/09 NA [facility] GLUCOSE RN/ Medical [facility] Center CHEMISTRY eGFR 88 03/09 NA 4Result Comment: The eGFR is calculated using the CKD-EPI formula. In most young, healthy individuals the eGFR will be > 90 mL/min/1.73m2. The eGFR declines with age. An eGFR of 60-89 may be normal in [facility] mL/min/1.7 some populations, particularly the elderly, for whom the CKD-EPI formula has not been extensively validated. Use of the eGFR is not recommended in the following populations: [place] [id number] Center Individuals with unstable creatinine concentrations, including [...] 7 mg/dL 7 - 22 03/09 Normal [facility] CHEMISTRY Creatinine 0.8 mg/dL 0.5 - 1.4 03/09 Normal [facility] Lvl [facility] CHEMISTRY Sodium Lvl 138 meq/L 135 - 145 03/09 Normal [facility] CHEMISTRY Potassium Lvl 4.7 meq/L 3.5 - 5.1 03/09 Normal [facility] CHEMISTRY Chloride Lvl 104 meq/L 95 - 109 03/09 Normal [facility] CHEMISTRY CO2 23 meq/L 24 - 32 03/09 LOW [facility] CHEMISTRY Bili Total 0.2 mg/dL 0.2 - 1.3 07/ Normal [facility] CHEMISTRY AST 22 unit/L 0 - 37 / Normal [facility] CHEMISTRY Total Protein 4.8 g/dL 6.4 - 8.4 07/ LOW [facility] CHEMISTRY Calcium Lvl 7.4 mg/dL 8.5 - 10.5 03/09 LOW [facility]2012 [facility] CHEMISTRY Albumin Lvl 1.9 g/dL 3.5 - 5.0 / LOW [facility] CHEMISTRY Glucose Lvl 192 mg/dL 70 - 99 07/ [place] 7Interpretive Data: Adult reference range values reflect the clinical guidelines of the [place] [employer]. [facility] CHEMISTRY Alk Phos 162 unit/L 39 - 136 03/09 HI [facility] CHEMISTRY ALT 18 unit/L 0 - 65 03/09 Normal [facility] CHEMISTRY A/G Ratio 0.7 0.7 - 1.6 03/09 Normal [facility] CHEMISTRY Globulin 2.9 g/dL 2.0 - 4.0 03/09 Normal [facility] CHEMISTRY AGAP 15.7 meq/L 10.0 - 07 Normal [facility] 20.0 [facility] CHEMISTRY B/C Ratio 9 6 - 25 03/09 Normal [facility]2012 [facility] HEMATOLOGY Eosinophils 1.9 % 0.0 - 4.0 / Normal [facility] HEMATOLOGY Basophils 1.0 % 0.0 - 1.0 03/09 Normal [facility] HEMATOLOGY Anisocyte 1+ None Seen 03/09 ABN Medical *ABN* Center (03/09/2013 01:09:00) HEMATOLOGY Lymphocytes # 2.0 K/CMM 1.0 - 5.5 07/ Normal [facility] HEMATOLOGY Monocytes # 0.6 K/CMM 0.0 - 0.8 07/ Normal [facility]2012 [facility] HEMATOLOGY Eosinophils # 0.1 K/CMM 0.0 - 0.5 07/ Normal [facility]2012 [facility] HEMATOLOGY Basophils # 0.1 K/CMM 0.0 - 0.2 07/ Normal [facility] HEMATOLOGY Segs-Bands # 4.6 K/CMM 1.5 - 8.1 07/ Normal /2012 [facility] Center HEMATOLOGY Segs 62.8 % 45.0 - 07/ Normal [place] 75.0 /2012 Medical Center HEMATOLOGY Lymphocytes 26.4 % 20.0 - 07/ Normal [place] 40.0 /2012 Medical Center HEMATOLOGY Monocytes 7.9 % 2.0 - 12.0 07/ Normal [facility] Center HEMATOLOGY RDW 20.7 % 11.5 - 07/04 HI [place] 14.5 /2012 Medical Center HEMATOLOGY Platelet 304 K/CMM 133 - 450 07/ Normal /2012 [facility] HEMATOLOGY MPV 8.0 fL 7.4 - 10.4 07/ Normal [facility] HEMATOLOGY Hct 24.9 % 36.0 - 07/ LOW [place] 48.0 /2012 [facility] HEMATOLOGY MCV 79.3 fL 81.0 - 07/ [facility] [place] 99.0 /2012 [facility] HEMATOLOGY MCH 24.7 pg 27.0 - 07 LOW [facility] 31.0 /2012 Medical Center HEMATOLOGY MCHC 31.2 g/dL 32.0 - 07 LOW [place] 36.0 /2012 [facility] Center HEMATOLOGY RBC 3.14 M/CMM 4.20 - 07/ LOW [place] 5.40 /2012 Medical Center HEMATOLOGY Hgb 7.8 g/dL 12.0 - 07/ LOW [facility] 16.0 /2012 [facility] HEMATOLOGY WBC 7.4 K/CMM 3.7 - 10.4 07 Normal [facility] BEDSIDE Gluc POC 131 mg/dL 70 - 99 03/09 HI 2Interpretive [facility] GLUCOSE ms Data: Medical TESTING Center Upper Reportable Limit: 200 mg/dL. BEDSIDE Comment1 Notify 03/09 NA [facility] GLUCOSE RN/MD /2012 [facility] BEDSIDE Comment1 Notify 03/09 NA [facility] GLUCOSE RN/MD /2012 [facility] BEDSIDE Gluc POC 155 mg/dL 70 - 99 03/09 [place] 3Interpretive [facility] GLUCOSE Lifms Data: Medical TESTING Center Upper Reportable Limit: 200 mg/dL. CHEMISTRY Magnesium Lvl 1.5 mg/dL 1.8 - 2.4 03/08 LOW [facility] Center CHEMISTRY A/G Ratio 0.7 0.7 - 1.6 03/08 Normal [facility] CHEMISTRY B/C Ratio 8 6 - 25 03/08 Normal [facility] CHEMISTRY Globulin 2.8 g/dL 2.0 - 4.0 03/08 Normal [facility] CHEMISTRY AGAP 15.8 meq/L 10.0 - 03/08 Normal [facility] 20.0 /2012 [facility] CHEMISTRY Potassium Lvl 3.8 meq/L 3.5 - 5.1 03/08 Normal [facility] CHEMISTRY Chloride Lvl 100 meq/L 95 - 109 03/08 Normal [facility] CHEMISTRY CO2 23 meq/L 24 - 32 03/08 LOW [facility] CHEMISTRY Total Protein 4.8 g/dL 6.4 - 8.4 03/08 LOW [facility] CHEMISTRY AST 10 unit/L 0 - 37 03/08 Normal [facility] CHEMISTRY Calcium Lvl 7.6 mg/dL 8.5 - 10.5 03/08 LOW [facility]2012 [facility] CHEMISTRY Bili Total 0.3 mg/dL 0.2 - 1.3 03/08 Normal [facility] CHEMISTRY eGFR 88 03/08 NA 5Result Comment: The eGFR is calculated using the CKD-EPI formula. In most young, healthy individuals the eGFR will be > 90 mL/min/1.73m2. The eGFR declines with age. An eGFR of 60-89 may be normal in [facility] mL/min/1. some populations, particularly the elderly, for whom the CKD-EPI formula has not been extensively validated. Use of the eGFR is not recommended in the following populations: [address] Individuals with unstable creatinine concentrations, including [...] values reflect the clinical guidelines of the [place] [employer]. [facility] CHEMISTRY BUN 6 mg/dL 7 - 22 03/08 LOW [facility] CHEMISTRY Creatinine 0.8 mg/dL 0.5 - 1.4 03/08 Normal [facility] /2012 [facility] CHEMISTRY Sodium Lvl 135 meq/L 135 - 145 07 Normal [facility] CHEMISTRY Alk Phos 173 unit/L 39 - 136 07 HI [facility] CHEMISTRY ALT 16 unit/L 0 - 65 03/08 Normal [facility] CHEMISTRY Albumin Lvl 2.0 g/dL 3.5 - 5.0 03/08 LOW [facility] CHEMISTRY Lipase Lvl 54 unit/L 73 - 393 03/08 LOW [facility] CHEMISTRY Amylase Lvl 30 unit/L 25 - 115 / Normal [facility] HEMATOLOGY Basophils # 0.1 K/CMM 0.0 - 0.2 03/08 Normal [facility] HEMATOLOGY Anisocyte 1+ None Seen 03/08 ABN [facility] *[facility]* Center (03/08/2013 03:01:00) HEMATOLOGY Microcyte 1+ None Seen 03/08 [facility] *[facility]* Center (03/08/2013 03:01:00) HEMATOLOGY Eosinophils # 0.2 K/CMM 0.0 - 0.5 / Normal [facility] HEMATOLOGY Monocytes # 0.8 K/CMM 0.0 - 0.8 03/08 Normal [facility] HEMATOLOGY Lymphocytes 34.2 % 20.0 - 07 Normal [facility] 40.0 [facility] HEMATOLOGY Segs 53.3 % 45.0 - 07 [facility] 75.0 [facility] HEMATOLOGY Lymphocytes # 3.0 K/CMM 1.0 - 5.5 07 Normal [facility] HEMATOLOGY Segs-Bands # 4.7 K/CMM 1.5 - 8.1 07 Normal [facility] HEMATOLOGY Basophils 0.9 % 0.0 - 1.0 07/ Normal [facility] HEMATOLOGY Eosinophils 2.6 % 0.0 - 4.0 07/ Normal [facility] HEMATOLOGY Monocytes 9.0 % 2.0 - 12.0 07/ Normal [facility] HEMATOLOGY Hgb 7.9 g/dL 12.0 - 0703 LOW [facility] 16.0 [facility] HEMATOLOGY RBC 3.12 M/CMM 4.20 - 07 [facility] 5.40 /2012 [facility] HEMATOLOGY MPV 8.0 fL 7.4 - 10.4 07/ Normal [facility] HEMATOLOGY Platelet 294 K/CMM 133 - 450 07/ Normal [facility] HEMATOLOGY MCH 25.3 pg 27.0 - 07/ [facility] 31.0 /2012 Medical [place] HEMATOLOGY MCV 79.7 fL 81.0 - 07/ [facility] 99.0 /2012 Medical [place] HEMATOLOGY Hct 24.9 % 36.0 - 07/ [facility] 48.0 /2012 Medical [place] HEMATOLOGY WBC 8.8 K/CMM 3.7 - 10.4 07/ Normal [facility] HEMATOLOGY RDW 21.4 % 11.5 - 07/03 [facility] 14.5 /2012 [facility] HEMATOLOGY MCHC 31.8 g/dL 32.0 - 07/ [facility] 36.0 /2012 [facility] CHEMISTRY Troponin-I null 0.00 - 07 Normal [facility] 0.40 [facility] CHEMISTRY Total CK 26 unit/L 12 - 191 07 Normal [facility] CHEMISTRY A/G Ratio 0.6 0.7 - 1.6 07/ LOW [facility] CHEMISTRY Bili Total 0.6 mg/dL 0.2 - 1.3 07 Normal [facility] CHEMISTRY Bili Direct 0.3 mg/dL 0.0 - 0.3 07 Normal [facility] CHEMISTRY Alk Phos 190 unit/L 39 - 136 07/ [facility] CHEMISTRY Total Protein 5.2 g/dL 6.4 - 8.4 07 [facility] CHEMISTRY Globulin 3.2 g/dL 2.0 - 4.0 07/ Normal [facility] CHEMISTRY Bili Indirect 0.3 mg/dL 0.0 - 1.0 07/ Normal [facility] CHEMISTRY AST 11 unit/L 0 - 37 07/ Normal [facility] CHEMISTRY Albumin Lvl 2.0 g/dL 3.5 - 5.0 07/ LOW [facility] CHEMISTRY ALT 19 unit/L 0 - 65 07/ Normal [facility] CHEMISTRY Amylase Lvl 26 unit/L 25 - 115 07/ Normal [facility] CHEMISTRY Lipase Lvl 49 unit/L 73 - 393 07 [facility] HEMATOLOGY MPV 8.3 fL 7.4 - 10.4 07 Normal [facility] HEMATOLOGY MCH 24.7 pg 27.0 - 07 [facility] 31.0 /2012 [facility] HEMATOLOGY MCHC 32.6 g/dL 32.0 - 03/07 [facility] 36.0 /2012 [facility] HEMATOLOGY RDW 20.1 % 11.5 - 07 [facility] 14.5 /2012 [facility] HEMATOLOGY Platelet 362 K/CMM 133 - 450 07 Normal [facility] HEMATOLOGY MCV 75.7 fL 81.0 - 03/07 [facility] 99.0 /2012 [facility] HEMATOLOGY Hgb 8.8 g/dL 12.0 - 03/07 [facility] 16.0 [facility] HEMATOLOGY Hct 26.9 % 36.0 - 03/07 [facility] 48.0 [facility] HEMATOLOGY RBC 3.56 M/CMM 4.20 - 03/07 [facility] 5.40 /2012 [facility] HEMATOLOGY WBC 11.1 K/CMM 3.7 - 10.4 07 [facility] HEMATOLOGY Lymphocytes # 2.4 K/CMM 1.0 - 5.5 03/07 [facility] HEMATOLOGY Hypochrom Slight None Seen 03/07 [facility] (03/07/2013 07:43:59) Center HEMATOLOGY Microcyte 2+ None Seen 03/07 [facility] *ABN* Center (03/07/2013 07:43:59) HEMATOLOGY Anisocyte 1+ None Seen 03/07 [facility] *ABN* [place] (03/07/2013 07:43:59) HEMATOLOGY Basophils # 0.1 K/CMM 0.0 - 0.2 03/07 [facility] HEMATOLOGY Polychrom Slight None Seen 03/07 [facility] (03/07/2013 07:43:59) Center HEMATOLOGY Basophils 0.8 % 0.0 - 1.0 03/07 [facility] HEMATOLOGY Eosinophils 1.3 % 0.0 - 4.0 03/07 [facility] HEMATOLOGY Segs-Bands # 7.6 K/CMM 1.5 - 8.1 / Normal [facility] HEMATOLOGY Monocytes 8.1 % 2.0 - 12.0 03/07 Normal [facility] HEMATOLOGY Monocytes # 0.9 K/CMM 0.0 - 0.8 / HI [facility] HEMATOLOGY Eosinophils # 0.1 K/CMM 0.0 - 0.5 03/07 Normal [facility] HEMATOLOGY Target Cell Slight None Seen 03/07 ABN Medical *ABN* Center (03/07/2013 07:43:59) HEMATOLOGY Plt Morph Normal 03/07 Normal [facility] (03/07/2013 07:43:59) Center HEMATOLOGY Lymphocytes 22.0 % 20.0 - 07 [facility] 40.0 [facility] HEMATOLOGY Segs 67.8 % 45.0 - 07 [facility] 75.0 [facility] CHEMISTRY Lactic Acid 1.7 mMol/L 0.5 - 2.2 03/07 [facility] Lvl [facility] CHEMISTRY Total CK 21 unit/L 12 - 191 03/07 Normal [facility] CHEMISTRY Troponin-I null 0.00 - 07 Normal [facility] 0.40 /2012 [facility] CHEMISTRY eGFR 104 03/07 NA 6Result Comment: The eGFR is calculated using the CKD-EPI formula. In most young, healthy individuals the eGFR will be > 90 mL/min/1.73m2. The eGFR declines with age. An eGFR of 60-89 may be normal in [facility] mL/min/1.7 /2012 some populations, particularly the elderly, for whom the CKD-EPI formula has not been extensively validated. Use of the eGFR is not recommended in the following populations: [address] Individuals with unstable creatinine concentrations, including [...] 27 meq/L 24 - 32 07 Normal [facility] CHEMISTRY Potassium Lvl 3.6 meq/L 3.5 - 5.1 03/07 Normal [facility]2012 [facility] CHEMISTRY Chloride Lvl 99 meq/L 95 - 109 03/07 Normal [facility] CHEMISTRY Sodium Lvl 134 meq/L 135 - 145 03/07 LOW [facility] CHEMISTRY BUN 5 mg/dL 7 - 22 03/07 LOW [facility] CHEMISTRY Creatinine 0.7 mg/dL 0.5 - 1.4 03/07 Normal [facility] Lvl [facility] CHEMISTRY Glucose Lvl 233 mg/dL 70 - 99 03/07 HI 9Interpretive Data: Adult reference range values reflect the clinical guidelines of the [place] [employer]. [facility] CHEMISTRY Calcium Lvl 7.7 mg/dL 8.5 - 10.5 03/07 LOW [facility] CHEMISTRY AGAP 11.6 meq/L 10.0 - 07 Normal [facility] 20.0 [facility] CHEMISTRY Temp Art 37.0 Abby 03/07 NA [facility] CHEMISTRY pH Art 7.41 7.35 - 03/07 Normal [facility] 7.45 [facility] CHEMISTRY pCO2 Art 34 mm[Hg] 35 - 45 03/07 LOW [facility] CHEMISTRY O2 Sat Art 97.5 % 95.0 - 03/07 Normal [facility] 100.0 [facility] CHEMISTRY HCO3 Art 22 mMol/L 22 - 26 03/07 Normal [facility] CHEMISTRY BE Art -2 mMol/L -2-2 - 2 03/07 Normal [facility] CHEMISTRY pO2 Art 96 mm[Hg] 80 - 100 03/07 Normal [facility] Chest 1view Chest 1view EXAM: CHEST 1 VIEW 03/07 - - Medical This report was dictated by a Events And Promotions Assistant/Fellow. I have personally reviewed the images as [...] CHEMISTRY Temp Mark 37.0 Abby 03/07 NA [facility] CHEMISTRY pO2 Mark 20 mm[Hg] 20 - 49 03/07 Normal [facility] CHEMISTRY HCO3 Mark 21 mMol/L 22 - 26 03/07 LOW [facility] CHEMISTRY BE Mark -2 mMol/L -2-2 - 2 03/07 Normal [facility] CHEMISTRY O2 Sat Mark 36.2 % 40.0 - 03/07 [facility] 70.0 [facility] CHEMISTRY pCO2 Mark 29 mm[Hg] 38 - 52 03/07 LOW [facility] CHEMISTRY pH Mark 7.46 7.28 - 03/07 [facility] 7.42 [facility] CHEMISTRY Lactic Acid 2.6 mMol/L 0.5 - 2.2 03/07 [facility] Lvl [facility] CHEMISTRY Phosphorus 3.1 mg/dL 2.5 - 4.5 03/07 Normal [facility] CHEMISTRY Magnesium Lvl 1.6 mg/dL 1.8 - 2.4 03/07 LOW [facility] CHEMISTRY Total CK 31 unit/L 12 - 191 03/07 Normal [facility] CHEMISTRY Troponin-I null 0.00 - 03/07 Normal [facility] 0.40 [facility] CHEMISTRY U Preg Negative Negative 03/06 Normal [facility] (03/06/2013 18:25:00) Center URINALYSIS UA Amorph Occasional /HPF None Seen 03/06 [facility] *ABN* [place] (03/06/2013 18:25:00) URINALYSIS UA Mucus Few /LPF None Seen 03/06 Normal [facility] (03/06/2013 18:25:00) Center URINALYSIS Micro? Performed 03/06 Normal [facility] (03/06/2013 18:25:00) Center URINALYSIS UA Sq Epi Moderate /LPF Few 03/06 [facility] Medical *ABN* [place] (03/06/2013 18:25:00) URINALYSIS UA WBC 0-2 /HPF None Seen 03/06 Normal [facility] (03/06/2013 18:25:00) Center URINALYSIS UA RBC None Seen 0 - 2 03/06 Normal [facility] (03/06/2013 18:25:00) Center URINALYSIS UA Bacteria Few /HPF None Seen 03/06 Normal [facility] (03/06/2013 18:25:00) Center URINALYSIS UA Bili Negative Negative 03/06 NA Medical *NA* [place] (03/06/2013 18:25:00) URINALYSIS UA 0.2 EU/dL 0.1 - 1.0 03/06 Normal [facility] Urobilinogen /2012 [facility] URINALYSIS UA Nitrite Negative Negative 03/06 Normal [facility] (03/06/2013 18:25:00) [place] URINALYSIS UA Leuk Est Trace Negative 03/06 [facility] Medical *ABN* [place] (03/06/2013 18:25:00) URINALYSIS UA Blood Negative Negative 03/06 Normal [facility] (03/06/2013 18:25:00) [place] URINALYSIS UA Ketones 40 mg/dL Negative 03/06 [facility] Medical *ABN* [place] (03/06/2013 18:25:00) URINALYSIS UA Turbidity Clear Clear 03/06 Normal [facility] (03/06/2013 18:25:00) Center URINALYSIS UA Color Yellow Yellow 03/06 NA [facility] *NA* [place] (03/06/2013 18:25:00) URINALYSIS UA Spec Grav 1.015 <=1.030 03/06 Normal [facility] URINALYSIS UA Protein Negative Negative 03/06 Normal [facility] (03/06/2013 18:25:00) Center URINALYSIS UA Glucose 250 mg/dL Negative 03/06 [facility] *ABN* [place] (03/06/2013 18:25:00) URINALYSIS UA pH 7.5 5.0 - 8.0 03/06 Normal [facility] Chest 2 Chest 2 views EXAM: CHEST 2 VIEWS 03/06 - [facility] - Medical This report was dictated by a Events And Promotions Assistant/Fellow. I have personally reviewed the images as [...] left pleural effusion. BEDSIDE Comment1 Notify 12/07 [facility] Fei GLUCOSE MARTÍNEZ/ [facility] TESTING Center BEDSIDE Gluc POC 64 mg/dL 70 - 99 12/07 LOW 3Interpretive [facility] GLUCOSE Lifscn Data: [facility] Center Upper Reportable Limit: 200 mg/dL. BEDSIDE Gluc POC 50 mg/dL 70 - 99 / LOW 4Interpretive [facility] GLUCOSE Lifscn Data: [facility] Center Upper Reportable Limit: 200 mg/dL. BEDSIDE Comment1 Notify 12/07 [facility] Fei GLUCOSE MARTÍNEZ/ /2012 [facility] TESTING [place] BEDSIDE Gluc POC 45 mg/dL 70 - 99 12/07 LOW 5Interpretive [facility] GLUCOSE Lifscn Data: [facility] Center Upper Reportable Limit: 200 mg/dL. BEDSIDE Comment1 Notify 12/07 [facility] Fei ROACH RN/ /2012 [facility] CHEMISTRY eGFR 109 12/07 NA 7Result Comment: The eGFR is calculated using the CKD-EPI formula. In most young, healthy individuals the eGFR will be > 90 mL/min/1.73m2. The eGFR declines with age. An eGFR of 60-89 may be normal in [facility] mL/min/1.7 /2012 some populations, particularly the elderly, for whom the CKD-EPI formula has not been extensively validated. Use of the eGFR is not recommended in the following populations: [address] Center Individuals with unstable creatinine concentrations, [...] 8.3 mg/dL 8.5 - 10.5 12/07 LOW [facility] CHEMISTRY AGAP 12.8 meq/L 10.0 - 12/07 Normal [facility] 20.0 [facility] CHEMISTRY BUN 2 mg/dL 7 - 22 12/07 LOW [facility] CHEMISTRY Glucose Lvl 95 mg/dL 70 - 99 12/07 Normal 10Interpretive Data: Adult reference range values reflect the clinical guidelines of the [place] [employer]. [facility] Center CHEMISTRY Potassium Lvl 3.8 meq/L 3.5 - 5.1 12/07 Normal [facility] CHEMISTRY Creatinine 0.6 mg/dL 0.5 - 1.4 12/07 Normal [facility] CHEMISTRY Sodium Lvl 140 meq/L 135 - 145 12/07 Normal [facility] CHEMISTRY Chloride Lvl 105 meq/L 95 - 109 12/07 Normal [facility] CHEMISTRY CO2 26 meq/L 24 - 32 12/07 Normal [facility] BEDSIDE Comment2 Verify 12/06 NA [facility] GLUCOSE wLab [facility] BEDSIDE Comment2 Verify 12/06 NA [facility] GLUCOSE w/Lab [facility] CHEMISTRY AGAP 13.5 meq/L 10.0 - 12/06 Normal [facility] .0 [facility] CHEMISTRY Calcium Lvl 8.1 mg/dL 8.5 - 10.5 12/06 LOW [facility] CHEMISTRY CO2 28 meq/L 24 - 32 12/06 Normal [facility] CHEMISTRY Chloride Lvl 101 meq/L 95 - 109 12/06 Normal [facility] CHEMISTRY eGFR 104 04 NA 8Result Comment: The eGFR is calculated using the CKD-EPI formula. In most young, healthy individuals the eGFR will be > 90 mL/min/1.73m2. The eGFR declines with age. An eGFR of 60-89 may be normal in [facility] mL/min/1.7 some populations, particularly the elderly, for whom the CKD-EPI formula has not been extensively validated. Use of the eGFR is not recommended in the following populations: [address] Individuals with unstable creatinine concentrations, including [...] reference range values reflect the clinical guidelines [facility] of the [place] [employer]. [facility] CHEMISTRY BUN 2 mg/dL 7 - 22 04 LOW [facility]2012 [facility] CHEMISTRY Creatinine 0.7 mg/dL 0.5 - 1.4 / Normal [facility] CHEMISTRY Sodium Lvl 139 meq/L 135 - 145 / Normal [address] CHEMISTRY Potassium Lvl 3.5 meq/L 3.5 - 5.1 12/06 Normal [facility]2012 [facility] CHEMISTRY Lipase Lvl 62 unit/L 73 - 393 04/ LOW [address] CHEMISTRY Alk Phos 92 unit/L 39 - 136 04/ Normal [facility]2012 [facility] CHEMISTRY Albumin Lvl 2.7 g/dL 3.5 - 5.0 / [facility]2012 [facility] CHEMISTRY Total Protein 5.8 g/dL 6.4 - 8.4 / [address] CHEMISTRY Globulin 3.1 g/dL 2.0 - 4.0 / Normal [facility]2012 [facility] CHEMISTRY A/G Ratio 0.9 0.7 - 1.6 / Normal [facility]2012 [facility] CHEMISTRY AST 74 unit/L 0 - 37 04/ HI [facility]2012 [facility] CHEMISTRY ALT 50 unit/L 0 - 65 04/ Normal [facility]2012 [facility] CHEMISTRY Bili Indirect 0.1 mg/dL 0.0 - 1.0 / Normal [facility]2012 [facility] CHEMISTRY Bili Total 0.2 mg/dL 0.2 - 1.3 / Normal [facility]2012 [facility] CHEMISTRY Bili Direct 0.1 mg/dL 0.0 - 0.3 12/06 Normal [facility]2012 [facility] CHEMISTRY eGFR 109 04/ NA 9Result Comment: The eGFR is calculated using the CKD-EPI formula. In most young, healthy individuals the eGFR will be > 90 mL/min/1.73m2. The eGFR declines with age. An eGFR of 60-89 may be normal in [facility] mL/min/1.7 some populations, particularly the elderly, for whom the CKD-EPI formula has not been extensively validated. Use of the eGFR is not recommended in the following populations: [address] Individuals with unstable creatinine concentrations, including [...] values reflect the clinical guidelines of the [place] [employer]. [facility] CHEMISTRY Creatinine 0.6 mg/dL 0.5 - 1.4 12/05 Normal [facility] Lvl [facility] CHEMISTRY BUN 1 mg/dL 7 - 22 12/05 LOW [facility] CHEMISTRY Chloride Lvl 102 meq/L 95 - 109 12/05 Normal [facility] CHEMISTRY Potassium Lvl 3.3 meq/L 3.5 - 5.1 12/05 [facility] CHEMISTRY Sodium Lvl 140 meq/L 135 - 145 12/05 Normal [facility] CHEMISTRY Calcium Lvl 7.9 mg/dL 8.5 - 10.5 12/05 LOW [facility] CHEMISTRY CO2 29 meq/L 24 - 32 12/05 Normal [facility] CHEMISTRY AGAP 12.3 meq/L 10.0 - 12/05 Normal [facility] 20.0 [facility] CHEMISTRY Ca Norm mgdL 4.84 mg/dL 4.65 - 12/03 Normal [facility] 5. [facility] CHEMISTRY Ca Ion mgdL 4.84 mg/dL 4.65 - 12/03 Normal [facility] 5. [facility] CHEMISTRY Ca Ion 1.21 1.16 - 12/03 Normal [facility] mMol/L 1. [facility] CHEMISTRY Ca Norm 1.21 1.16 - 12/03 Normal [facility] mMol/L 1. [facility] CHEMISTRY Magnesium Lvl 1.8 mg/dL 1.8 - 2.4 12/03 Normal [facility] CHEMISTRY Phosphorus 3.4 mg/dL 2.5 - 4.5 12/03 Normal [facility] HEMATOLOGY Lymphocytes # 1.8 K/CMM 1.0 - 5.5 12/03 Normal [facility] HEMATOLOGY Lymphocytes 23.6 % 20.0 - 12/03 Normal [place] 40.0 [facility] HEMATOLOGY Eosinophils 2.9 % 0.0 - 4.0 12/03 Normal [facility] HEMATOLOGY Monocytes 9.1 % 2.0 - 12.0 12/03 Normal [facility] HEMATOLOGY Basophils 0.6 % 0.0 - 1.0 12/03 Normal [facility] HEMATOLOGY Segs-Bands # 5.0 K/CMM 1.5 - 8.1 12/03 Normal [facility] HEMATOLOGY Segs 63.8 % 45.0 - 12/03 [facility] 75.0 [facility] HEMATOLOGY Monocytes # 0.7 K/CMM 0.0 - 0.8 12/03 Normal [facility] HEMATOLOGY Eosinophils # 0.2 K/CMM 0.0 - 0.5 12/03 Normal [facility] HEMATOLOGY Microcyte 1+ None Seen 12/03 ABN Medical *ABN* Center (12/03/2012 01:02:00) HEMATOLOGY WBC 7.8 K/CMM 3.7 - 10.4 12/03 Normal [facility] HEMATOLOGY Hct 27.8 % 36.0 - 12/03 LOW [facility] 48.0 [facility] HEMATOLOGY MPV 8.5 fL 7.4 - 10.4 12/03 Normal [facility] HEMATOLOGY MCHC 32.4 g/dL 32.0 - 12/03 Normal [facility] 36.0 [facility] HEMATOLOGY RDW 18.9 % 11.5 - 12/03 HI [place] 14.5 [facility] HEMATOLOGY MCH 24.6 pg 27.0 - 12/03 LOW [place] 31.0 [facility] HEMATOLOGY RBC 3.66 M/CMM 4.20 - 12/03 LOW [facility] 5.40 [facility] HEMATOLOGY MCV 75.9 fL 81.0 - 12/03 LOW [facility] 99.0 Medical [place] HEMATOLOGY Platelet 224 K/CMM 133 - 450 12/03 Normal [facility] HEMATOLOGY Hgb 9.0 g/dL 12.0 - 12/03 LOW [facility] 16.0 [facility] Microbiolog Culture: 12/02 [facility] y Blood /2012 Medical Center Microbiolog Culture: MRSA 12/02 [facility] y /2012 Medical Center Microbiolog Culture: 12/02 [facility] y Resistant Medical Acinetobacter Center Screen CHEMISTRY Ketone 1.42 <=0.27 12/02 HI [facility] Quantitative mmol/L /2012 [facility] URINALYSIS UA WBC 1 /HPF 0 - 5 12/02 Normal [facility] URINALYSIS UA RBC null 0 - 2 12/02 Normal [facility] URINALYSIS UA <=1.0 0.1 - 1.0 12/02 NA [facility] Urobilinogen mg/dL Medical
*NA*< Center br/>(12/02 04:02:55) <sup> </sup> URINALYSIS UA Sq Epi Moderate /LPF Few 12/02 ABN Medical *ABN* Center (12/02/2012 04:02:55) URINALYSIS UA Leuk Est Negative Negative 12/02 Normal [facility] (12/02/2012 04:02:55) Center URINALYSIS UA Nitrite Negative Negative 12/02 Normal [facility] (12/02/2012 04:02:55) Center URINALYSIS UA Mucus Few /LPF None Seen 12/02 NA Medical *NA* Center (12/02/2012 04:02:55) URINALYSIS UA Ketones 40 mg/dL Negative 12/02 ABN Medical *ABN* Center (12/02/2012 04:02:55) URINALYSIS UA Blood Negative Negative 12/02 Normal [facility] (12/02/2012 04:02:55) Center URINALYSIS UA Glucose >=1000 mg/dL Negative 12/02 ABN [facility] *ABN* Center (12/02/2012 04:02:55) URINALYSIS UA Bili Negative Negative 12/02 NA Medical *NA* Center (12/02/2012 04:02:55) URINALYSIS UA Protein Negative mg/dL Negative 12/02 Normal [facility] (12/02/2012 04:02:55) Center URINALYSIS UA Turbidity Clear Clear 12/02 Normal [facility] (12/02/2012 04:02:55) Center URINALYSIS UA pH 5.5 5.0 - 8.0 12/02 Normal [facility] URINALYSIS UA Spec Grav 1.010 <=1.030 12/02 Normal [facility] URINALYSIS UA Color Yellow Yellow 12/02 NA [facility] *NA* Center (12/02/2012 04:02:55) HEMATOLOGY MPV 8.9 fL 7.4 - 10.4 12/02 Normal [facility] HEMATOLOGY Hct 27.9 % 36.0 - 12/02 [facility] 48.0 [facility] HEMATOLOGY MCV 76.1 fL 81.0 - 12/02 [facility] 99.0 [facility] HEMATOLOGY MCH 25.2 pg 27.0 - 12/02 [facility] 31.0 [facility] HEMATOLOGY MCHC 33.2 g/dL 32.0 - 12/02 Normal [facility] 36.0 [facility] HEMATOLOGY RDW 19.3 % 11.5 - 12/02 [facility] 14.5 [facility] HEMATOLOGY Platelet 224 K/CMM 133 - 450 12/02 Normal [facility] HEMATOLOGY WBC 8.6 K/CMM 3.7 - 10.4 12/02 Normal [facility] HEMATOLOGY Hgb 9.3 g/dL 12.0 - 12/02 [facility] 16.0 [facility] HEMATOLOGY RBC 3.67 M/CMM 4.20 - 12/02 [facility] 5.40 /2012 [facility] HEMATOLOGY Segs-Bands # 6.4 K/CMM 1.5 - 8.1 12/02 Normal [facility] HEMATOLOGY Lymphocytes # 1.5 K/CMM 1.0 - 5.5 12/02 Normal [facility] HEMATOLOGY Eosinophils 0.6 % 0.0 - 4.0 12/02 Normal [facility] HEMATOLOGY Basophils 0.7 % 0.0 - 1.0 12/02 Normal [facility] HEMATOLOGY Lymphocytes 17.3 % 20.0 - 03/29 LOW [facility] 40.0 [facility] HEMATOLOGY Monocytes # 0.7 K/CMM 0.0 - 0.8 12/02 Normal [facility] HEMATOLOGY Microcyte 1+ None Seen 12/02 ABN Medical *ABN* Center (12/02/2012 04:02:51) HEMATOLOGY Eosinophils # 0.1 K/CMM 0.0 - 0.5 12/02 Normal [facility] HEMATOLOGY Basophils # 0.1 K/CMM 0.0 - 0.2 12/02 Normal [facility] HEMATOLOGY Segs 73.8 % 45.0 - 12/02 Normal [facility] 75.0 [facility] HEMATOLOGY Monocytes 7.6 % 2.0 - 12.0 12/02 Normal [facility] Microbiolog Culture: 12/02 [facility] y [facility] CHEMISTRY POC A Glu 305 mg/dL 70 - 99 12/02 HI [facility] CHEMISTRY POC A Hct 29.0 % 36.0 - 12/02 LOW [facility] 48.0 [facility] CHEMISTRY POC A O2 Sat 97.0 % 95.0 - 12/02 Normal [facility] 100.0 [facility] CHEMISTRY POC A K 3.4 meq/L 3.5 - 5.1 12/02 LOW [facility] CHEMISTRY POC A Na 130 meq/L 135 - 145 12/02 LOW [facility] CHEMISTRY POC A PCO2 38 mm[Hg] 35 - 45 12/02 Normal [facility] CHEMISTRY POC A BE 2 mMol/L -2-2 - 2 12/02 Normal [facility] CHEMISTRY POC A HCO3 26 mMol/L 22 - 26 12/02 Normal [facility] CHEMISTRY POC A Source ART 12/02 NA [facility] CHEMISTRY POC A PO2 89 mm[Hg] 80 - 100 12/02 Normal [facility] CHEMISTRY POC A pH 7.44 7.35 - 12/02 Normal [facility] 7.45 [facility] CHEMISTRY POC A Temp 37.0 Abby 12/02 NA [facility] CHEMISTRY POC A Ca Ion 1.12 1.16 - 12/02 LOW [facility] mMol/L 1.30 [facility] CHEMISTRY POC A LA 0.8 mMol/L 0.5 - 2.2 12/02 Normal [facility] CHEMISTRY Magnesium Lvl 1.9 mg/dL 1.8 - 2.4 12/02 Normal [facility] CHEMISTRY Phosphorus 2.7 mg/dL 2.5 - 4.5 12/02 Normal [facility] CHEMISTRY Ca Norm mgdL 4.36 mg/dL 4.65 - 12/02 LOW [facility] . [facility] CHEMISTRY Ca Ion 1.14 1.16 - 12/02 LOW [place] mMol/L 1. [facility] CHEMISTRY Ca Ion mgdL 4.56 mg/dL 4.65 - 12/02 LOW [place] . [facility] CHEMISTRY Ca Norm 1.09 1.16 - 12/02 [facility] [place] mMol/L 1. [facility] HEMATOLOGY Platelet 223 K/CMM 133 - 450 12/02 Normal [facility] HEMATOLOGY MPV 9.2 fL 7.4 - 10.4 12/02 Normal [facility] HEMATOLOGY MCHC 32.3 g/dL 32.0 - 12/02 Normal [facility] 36.0 [facility] HEMATOLOGY RDW 19.2 % 11.5 - 12/02 HI [facility] 14.5 [facility] HEMATOLOGY WBC 7.6 K/CMM 3.7 - 10.4 12/02 Normal [facility] HEMATOLOGY Hgb 9.2 g/dL 12.0 - 12/02 [facility] 16.0 [facility] HEMATOLOGY Hct 28.6 % 36.0 - 12/02 [facility] 48.0 [facility] HEMATOLOGY MCV 76.3 fL 81.0 - 12/02 [facility] 99.0 [facility] HEMATOLOGY MCH 24.6 pg 27.0 - 12/02 [facility] 31.0 [facility] HEMATOLOGY RBC 3.74 M/CMM 4.20 - 12/02 [facility] 5.40 /2012 [facility] HEMATOLOGY Microcyte 1+ None Seen 12/02 ABN Medical *ABN* Center (12/02/2012 03:00:00) HEMATOLOGY Basophils # 0.1 K/CMM 0.0 - 0.2 12/02 Normal [facility] HEMATOLOGY Monocytes # 0.6 K/CMM 0.0 - 0.8 12/02 Normal [facility] HEMATOLOGY Lymphocytes # 1.9 K/CMM 1.0 - 5.5 12/02 Normal [facility] HEMATOLOGY Segs-Bands # 5.0 K/CMM 1.5 - 8.1 12/02 Normal [facility] HEMATOLOGY Segs 65.5 % 45.0 - 12/02 Normal [facility] 75.0 /2012 [facility] HEMATOLOGY Lymphocytes 25.0 % 20.0 - 12/02 Normal [facility] 40.0 [facility] HEMATOLOGY Monocytes 8.4 % 2.0 - 12.0 12/02 Normal [facility] HEMATOLOGY Eosinophils 0.4 % 0.0 - 4.0 12/02 Normal [facility] HEMATOLOGY Basophils 0.7 % 0.0 - 1.0 12/02 Normal [facility] CHEMISTRY Magnesium Lvl 2.0 mg/dL 1.8 - 2.4 12/01 Normal [facility] CHEMISTRY Ca Norm mgdL 4.48 mg/dL 4.65 - 12/01 LOW [facility] 5. [facility] CHEMISTRY Ca Ion mgdL 4.68 mg/dL 4.65 - 12/01 Normal [facility] 5. [facility] CHEMISTRY Ca Ion 1.17 1.16 - 12/01 Normal [facility] mMol/L 1. [facility] CHEMISTRY Ca Norm 1.12 1.16 - 12/01 LOW [facility] mMol/L 1. [facility] CHEMISTRY Phosphorus 2.7 mg/dL 2.5 - 4.5 12/01 Normal [facility] URINALYSIS UA <=1.0 0.1 - 1.0 11/30 NA [facility] Urobilinogen mg/dL /2012 Medical
*NA*< Center br/>(11/30 17:41:33) <sup> </sup> URINALYSIS UA Mucus Few /LPF None Seen 11/30 NA Medical *NA* Center (11/30/2012 17:41:33) URINALYSIS UA WBC null 0 - 5 11/30 Normal [facility] URINALYSIS UA Sq Epi Moderate /LPF Few 11/30 ABN Medical *ABN* Center (11/30/2012 17:41:33) URINALYSIS UA Protein Negative mg/dL Negative 11/30 Normal [facility] (11/30/2012 17:41:33) Center URINALYSIS UA pH 5.0 5.0 - 8.0 11/30 Normal [facility] Center URINALYSIS UA Spec Grav 1.004 <=1.030 11/30 Normal [facility] URINALYSIS UA Turbidity Clear Clear 11/30 Normal [facility] (11/30/2012 17:41:33) Center URINALYSIS UA Color Light Yellow Yellow 11/30 NA Medical *NA* [place] (11/30/2012 17:41:33) URINALYSIS UA Leuk Est Negative Negative 11/30 Normal [facility] (11/30/2012 17:41:33) Center URINALYSIS UA Nitrite Negative Negative 11/30 Normal [facility] (11/30/2012 17:41:33) Center URINALYSIS UA Blood Negative Negative 11/30 Normal [facility] (11/30/2012 17:41:33) Center URINALYSIS UA Bili Negative Negative 11/30 NA [facility] *NA* [place] (11/30/2012 17:41:33) URINALYSIS UA Ketones 10 mg/dL Negative 11/30 ABN [facility] *ABN* [place] (11/30/2012 17:41:33) URINALYSIS UA Glucose Negative mg/dL Negative 11/30 NA [facility] *NA* [place] (11/30/2012 17:41:33) CHEMISTRY Ketone 1.65 <=0.27 11/30 HI [facility] Quantitative mmol/L /2012 [facility] HEMATOLOGY PT 14.1 s 12.0 - 11/30 Normal [facility] 14.7 [facility] Center HEMATOLOGY PTT 28.1 s 22.9 - 11/30 Normal 18Interpretiv [facility] 35.8 /2013 e Data: [facility] Heparin Center Therapeutic Range: 57 - 92 Seconds HEMATOLOGY INR 1.07 0.85 - 11/30 Normal 16Interpretive Data: RECOMMENDED RANGES FOR PROTIME INR: [facility] . 2.0-3.0 for most medical and [...] CHEMISTRY U Chloride 134 meq/L 11/30 NA [facility] CHEMISTRY Bili Total 0.4 mg/dL 0.2 - 1.3 11/30 Normal [facility] CHEMISTRY Total Protein 6.3 g/dL 6.4 - 8.4 11/30 LOW [facility] CHEMISTRY Albumin Lvl 2.9 g/dL 3.5 - 5.0 11/30 LOW [facility] CHEMISTRY Alk Phos 127 unit/L 39 - 136 11/30 Normal [facility] CHEMISTRY Bili Direct 0.2 mg/dL 0.0 - 0.3 11/30 Normal [facility] CHEMISTRY AST 22 unit/L 0 - 37 11/30 Normal [facility] CHEMISTRY ALT 20 unit/L 0 - 65 11/30 Normal [facility] CHEMISTRY A/G Ratio 0.9 0.7 - 1.6 11/30 Normal [facility] CHEMISTRY Bili Indirect 0.2 mg/dL 0.0 - 1.0 11/30 Normal [facility] CHEMISTRY Globulin 3.4 g/dL 2.0 - 4.0 11/30 Normal [facility] HEMATOLOGY Basophils # 0.1 K/CMM 0.0 - 0.2 11/30 Normal [facility] HEMATOLOGY PT 13.9 s 12.0 - 11/30 Normal [facility] 14.7 [facility] HEMATOLOGY PTT 26.5 s 22.9 - 11/30 Normal 19Interpretiv [facility] 35.8 /2012 e Data: [facility] Therapeutic Range: 57 - 92 Seconds HEMATOLOGY INR 1.05 0.85 - 11/30 Normal 17Interpretive Data: RECOMMENDED RANGES FOR PROTIME INR: [facility] . 2.0-3.0 for most medical and surgical thromboembolic states. Medical 2.5-3.5 for artificial heart valves and recurrent embolism. Center INR SHOULD BE USED ONLY FOR PATIENTS ON STABLE ANTICOAGULANT THERAPY. CHEMISTRY POC V Temp 37.0 Abby 11/29 NA [facility] CHEMISTRY POC V Ion Ca 1.16 1.16 [...] mmol/L -2-2 - 2 11/29 LOW Medical [place] CHEMISTRY POC V pH 7.42 7.28 - 11/29 Normal [facility] 7.42 Medical Center CHEMISTRY POC V PCO2 31 mm[Hg] 38 - 52 11/29 LOW [facility] CHEMISTRY POC V PO2 51 mm[Hg] 20 - 49 11/29 HI Medical [facility] CHEMISTRY POC V HCO3 20 mmol/L 22 - 26 11/29 LOW [facility] CHEMISTRY Troponin-I 0.05 ng/mL 0.00 - 11/29 Normal [facility] 0.40 Medical Center CHEMISTRY Total CK [...] CHEMISTRY POC A Source ART 11/29 NA [facility] CHEMISTRY POC A O2 Sat 98.0 % 95.0 - 11/29 Normal [facility] 100.0 [facility] CHEMISTRY POC A BE -11 mMol/L -2-2 - 2 11/29 LOW [facility] CHEMISTRY POC A HCO3 14 mMol/L 22 - 26 11/29 LOW [facility] CHEMISTRY POC A PCO2 26 mm[Hg] 35 - 45 11/29 CRIT [facility] CHEMISTRY POC A PO2 115 mm[Hg] 80 - 100 11/29 HI [facility] CHEMISTRY POC A pH 7.33 7.35 - 11/29 LOW [facility] 7.45 [facility] BACTERIAL - MRSA by PCR Positive 1, 2 11/29 ABN 2Interpretive Data: Interpretive Data: The [employer] Light[employer] MRSA assay is a qualitative test for the direct detection of nasal colonization with methicillin-resistant Staphylococcus aureus (MRSA) to aid [facility] in the prevention and control of [...] by the [facility] within the [facility]. The [facility] Labor atory is authorized under the Clinical Laboratory Improvement Amendment of 1988 (CLIA-88) to perform high complexity testing. CHEMISTRY Temp Art 37.0 Abby 11/29 NA [facility] CHEMISTRY O2 Sat Art 96.6 % 95.0 - 11/29 Normal [facility] 100.0 [facility] CHEMISTRY pO2 Art 96 mm[Hg] 80 - 100 11/29 Normal [facility] CHEMISTRY pCO2 Art 25 mm[Hg] 35 - 45 11/29 CRIT 15Result Comment: [facility] Critical Center Result(s) called to jose rodriguez at _11/29/2012 12:25:56 CDT bykak_. Read back OK. CHEMISTRY BE Art -12 mMol/L -2-2 - 2 11/29 LOW [facility] CHEMISTRY HCO3 Art 12 mMol/L - 11/29 LOW [facility] CHEMISTRY pH Art 7.30 7.35 - 11/29 LOW [facility] 7.45 [facility] CHEMISTRY A/G Ratio 0.8 0.7 - 1.6 11/29 Normal [facility] CHEMISTRY Globulin 4.0 g/dL 2.0 - 4.0 11/29 Normal [facility] CHEMISTRY AST 17 unit/L 0 - 37 11/29 Normal [facility] CHEMISTRY Bili Total 0.8 mg/dL 0.2 - 1.3 11/29 Normal [facility] CHEMISTRY B/C Ratio 14 - 11/29 Normal [facility] CHEMISTRY Total Protein 7.4 g/dL 6.4 - 8.4 11/29 Normal [facility] CHEMISTRY ALT 22 unit/L 0 - 65 11/29 Normal [facility] CHEMISTRY Albumin Lvl 3.4 g/dL 3.5 - 5.0 11/29 LOW [facility] CHEMISTRY Alk Phos 126 unit/L 39 - 136 11/29 Normal [facility] CHEMISTRY Troponin-I null 0.00 - 11/29 Normal [facility] 0.40 [facility] CHEMISTRY Lipase Lvl 70 unit/L 73 - 393 11/29 LOW [facility] CHEMISTRY B/C Ratio 10 - 11/29 Normal [facility] HEMATOLOGY Hypochrom Slight None Seen 11/29 Normal [facility] (11/28/2012 21:00:20) Center HEMATOLOGY Polychrom Slight None Seen 11/29 Normal [facility] (11/28/2012 21:00:20) Center HEMATOLOGY Anisocyte 1+ None Seen 11/29 ABN [facility] *ABN* Center (11/28/2012 21:00:20) HEMATOLOGY Large Plt Slight None Seen 11/29 [facility] Medical *ABN* Center (11/28/2012 21:00:20) HEMATOLOGY Eosinophils # 0.2 K/CMM 0.0 - 0.5 11/29 Normal [facility] CHEMISTRY U Preg Negative Negative 11/29 Normal Medical (11/28/2012 20:55:00) Center URINALYSIS UA Blood Negative Negative 11/29 Normal [facility] (11/28/2012 20:55:00) [place] URINALYSIS UA Bili Small 6 Negative 11/29 ABN 6Result Comment: Interpret positive bilirubin results with caution. Confirmatory testing not possible due to the unavailability of reagent. Correlation with Medical *ABN* serum chemistry results recommended. [place] (11/28/2012 20:55:00) URINALYSIS UA Protein Negative Negative 11/29 Normal [facility] (11/28/2012 20:55:00) [place] URINALYSIS Micro? Not Indicated 11/29 Normal [facility] (11/28/2012 20:55:00) [place] URINALYSIS UA Glucose Negative Negative 11/29 Normal [facility] (11/28/2012 20:55:00) [place] URINALYSIS UA Ketones 40 mg/dL Negative 11/29 ABN Medical *ABN* [place] (11/28/2012 20:55:00) URINALYSIS UA Leuk Est Negative Negative 11/29 Normal [facility] (11/28/2012 20:55:00) [place] URINALYSIS UA 0.2 EU/dL 0.1 - 1.0 11/29 Normal [facility] Urobilinogen /2012 [facility] URINALYSIS UA Nitrite Negative Negative 11/29 Normal [facility] (11/28/2012 20:55:00) [place] URINALYSIS UA Spec Grav 1.010 <=1.030 11/29 Normal [facility] URINALYSIS UA pH 6.0 5.0 - 8.0 11/29 Normal [facility] URINALYSIS UA Color Yellow Yellow 11/29 NA Medical *NA* [place] (11/28/2012 20:55:00) URINALYSIS UA Turbidity Clear Clear 11/29 Normal Medical (11/28/2012 20:55:00) Center BEDSIDE Comment1 Notify 11/17 NA [facility] GLUCOSE RN/MD /2012 Medical TESTING Center BEDSIDE Gluc POC 219 mg/dL 70 - 99 11/17 HI 1Interpretive [facility] GLUCOSE Lifmsn Data: Medical TESTING Center Upper Reportable Limit: 200 mg/dL. BEDSIDE Gluc POC 255 mg/dL 70 - 99 11/17 [place] 2Interpretive [facility] GLUCOSE Lifscn Data: Medical TESTING Center Upper Reportable Limit: 200 mg/dL. BEDSIDE Comment1 Notify 11/17 NA [facility] GLUCOSE RN/MD /2012 [facility] Center CHEMISTRY Troponin-T null 0.000 - 11/17 Normal [facility] 0.100 [facility] CHEMISTRY Troponin-I null 0.00 - 11/17 Normal [facility] 0.40 [facility] CHEMISTRY Total CK 52 unit/L 12 - 191 11/17 Normal [facility] CHEMISTRY eGFR 109 11/17 NA 4Result Comment: The eGFR is calculated using the CKD-EPI formula. In most young, healthy individuals the eGFR will be > 90 mL/min/1.73m2. The eGFR declines with age. An eGFR of 60-89 may be normal in [facility] mL/min/1.7 some populations, particularly the elderly, for whom the CKD-EPI formula has not been extensively validated. Use of the eGFR is not recommended in the following populations: [place] [id number] Center Individuals with unstable creatinine concentrations, including [...] 7.7 mg/dL 8.5 - 10.5 11/17 LOW [facility] CHEMISTRY AGAP 16.2 meq/L 10.0 - 11/17 Normal [facility] 20.0 [facility] CHEMISTRY Chloride Lvl 100 meq/L 95 - 109 11/17 Normal [facility] CHEMISTRY Potassium Lvl 4.2 meq/L 3.5 - 5.1 11/17 Normal [facility] CHEMISTRY Sodium Lvl 134 meq/L 135 - 145 11/17 LOW [facility] CHEMISTRY CO2 22 meq/L 24 - 32 11/17 [facility] CHEMISTRY Creatinine 0.6 mg/dL 0.5 - 1.4 11/17 Normal [facility] /2012 [facility] CHEMISTRY BUN 4 mg/dL 7 - 22 11/17 [facility] CHEMISTRY Glucose Lvl 237 mg/dL 70 - 99 11/17 HI 6Interpretive Data: Adult reference range values reflect the clinical guidelines of the [place] [employer]. [facility] CHEMISTRY Magnesium Lvl 1.4 mg/dL 1.8 - 2.4 11/17 LOW [facility] CHEMISTRY Phosphorus 3.4 mg/dL 2.5 - 4.5 11/17 Normal [facility] HEMATOLOGY Segs 60.3 % 45.0 - 11/17 Normal [facility] 75.0 /2012 [facility] HEMATOLOGY Monocytes 9.0 % 2.0 - 12.0 11/17 Normal [facility] HEMATOLOGY Lymphocytes 27.8 % 20.0 - 11/17 Normal [facility] 40.0 [facility] HEMATOLOGY Eosinophils 2.1 % 0.0 - 4.0 11/17 Normal [facility] HEMATOLOGY Lymphocytes # 2.3 K/CMM 1.0 - 5.5 11/17 Normal [facility] HEMATOLOGY Eosinophils # 0.2 K/CMM 0.0 - 0.5 11/17 Normal [facility] HEMATOLOGY Basophils 0.8 % 0.0 - 1.0 11/17 Normal [facility] HEMATOLOGY Segs-Bands # 5.1 K/CMM 1.5 - 8.1 11/17 Normal [facility] HEMATOLOGY Basophils # 0.1 K/CMM 0.0 - 0.2 11/17 Normal [facility] HEMATOLOGY Monocytes # 0.8 K/CMM 0.0 - 0.8 11/17 Normal [facility] HEMATOLOGY Microcyte 1+ None Seen 11/17 ABN Medical *ABN* Center (11/17/2012 04:33:00) HEMATOLOGY INR 1.09 0.85 - 11/17 Normal 8Interpretive Data: RECOMMENDED RANGES FOR PROTIME INR: [facility] . 2.0-3.0 for most medical and surgical thromboembolic states. Medical 2.5-3.5 for artificial heart valves and recurrent embolism. Center INR SHOULD BE USED ONLY FOR PATIENTS ON STABLE ANTICOAGULANT THERAPY. HEMATOLOGY PT 14.3 s 12.0 - 11/17 Normal [facility] 14.7 [facility] HEMATOLOGY PTT 31.8 s 22.9 - 11/17 Normal 9Interpretive [facility] 35.8 Data: Heparin [facility] Therapeutic Center Range: 57 - 92 Seconds HEMATOLOGY Platelet 177 K/CMM 133 - 450 11/17 Normal Medical Center HEMATOLOGY MPV 9.5 fL 7.4 - 10.4 11/17 Normal Medical [place] HEMATOLOGY MCH 24.5 pg 27.0 - 11/17 LOW [facility] 31.0 /2012 Medical [place] HEMATOLOGY RDW 18.9 % 11.5 - 11/17 HI [facility] 14.5 /2012 Medical Center HEMATOLOGY MCHC 32.3 g/dL 32.0 - 11/17 Normal [facility] 36.0 /2012 Medical Center HEMATOLOGY MCV 75.9 fL 81.0 - 11/17 LOW [facility] 99.0 /2012 [facility] Center HEMATOLOGY RBC 3.67 M/CMM 4.20 - 11/17 LOW [facility] 5.40 /2012 Medical Center HEMATOLOGY WBC 8.4 K/CMM 3.7 - 10.4 11/17 Normal [facility] HEMATOLOGY Hct 27.9 % 36.0 - 11/17 [facility] 48.0 /2012 Medical Center HEMATOLOGY Hgb 9.0 g/dL 12.0 - 11/17 LOW [facility] 16.0 Medical Center CHEMISTRY Troponin-T null 0.000 - 11/17 Normal [facility] 0.100 [facility] Center CHEMISTRY Troponin-I null 0.00 - 11/17 Normal [facility] 0.40 [facility] Center CHEMISTRY Total CK 76 unit/L 11/17 Normal [facility] CHEMISTRY CK MB Index 0.8 0.0 - 2.5 11/17 Normal [facility] CHEMISTRY CK MB 0.6 ng/mL 0.5 - 3.6 11/17 Normal Medical [facility] BEDSIDE Gluc POC 305 mg/dL 70 - 99 11/17 [place] 3Interpretive [facility] GLUCOSE Lifscn Data: Medical TESTING Center Upper Reportable Limit: 200 mg/dL. BEDSIDE Comment1 Notify 11/17 NA [facility] GLUCOSE RN/MD /2012 Medical TESTING Center CHEMISTRY Magnesium Lvl 1.4 mg/dL 1.8 - 2.4 11/16 LOW [facility] CHEMISTRY Total CK 27 unit/L 11/16 Normal [facility] Center CHEMISTRY Troponin-T null 0.000 - 11/16 Normal [facility] 0.100 [facility] Center CHEMISTRY Troponin-I null 0.00 - 11/16 Normal [facility] 0.40 Medical Center CHEMISTRY B/C Ratio 6 6 - 25 11/16 Normal MH [facility] CHEMISTRY A/G Ratio 1.0 0.7 - 1.6 11/16 Normal [facility] CHEMISTRY AGAP 18.6 meq/L 10.0 - 11/16 Normal [facility] 20.0 [facility] CHEMISTRY Globulin 3.5 g/dL 2.0 - 4.0 11/16 Normal [facility] CHEMISTRY eGFR 67 11/16 NA 5Result Comment: The eGFR is calculated using the CKD-EPI formula. In most young, healthy individuals the eGFR will be > 90 mL/min/1.73m2. The eGFR declines with age. An eGFR of 60-89 may be normal in [facility] mL/min/1.7 some populations, particularly the elderly, for whom the CKD-EPI formula has not been extensively validated. Use of the eGFR is not recommended in the following populations: [address] Individuals with unstable creatinine concentrations, including [...] 3.4 g/dL 3.5 - 5.0 11/16 LOW [facility] CHEMISTRY Alk Phos 88 unit/L 39 - 136 11/16 Normal [facility] CHEMISTRY Glucose Lvl 256 mg/dL 70 - 99 11/16 HI 7Interpretive Data: Adult reference range values reflect the clinical guidelines of the [place] [employer]. [facility] CHEMISTRY BUN 6 mg/dL 7 - 22 11/16 LOW [facility] CHEMISTRY Sodium Lvl 136 meq/L 135 - 145 11/16 Normal [facility] CHEMISTRY Chloride Lvl 99 meq/L 95 - 109 11/16 Normal [facility] CHEMISTRY Creatinine 1.0 mg/dL 0.5 - 1.4 11/16 Normal [facility] CHEMISTRY Potassium Lvl 3.6 meq/L 3.5 - 5.1 11/16 Normal [facility] CHEMISTRY CO2 22 meq/L 24 - 32 11/16 LOW [facility] CHEMISTRY Calcium Lvl 8.8 mg/dL 8.5 - 10.5 11/16 Normal [facility] CHEMISTRY Bili Total 0.6 mg/dL 0.2 - 1.3 11/16 Normal [facility] CHEMISTRY Total Protein 6.9 g/dL 6.4 - 8.4 11/16 Normal [facility] CHEMISTRY AST 52 unit/L 0 - 37 11/16 HI [facility] CHEMISTRY ALT 52 unit/L 0 - 65 11/16 Normal [facility] CHEMISTRY Phosphorus 1.6 mg/dL 2.5 - 4.5 11/16 LOW [facility] HEMATOLOGY Lymphocytes 16.8 % 20.0 - 11/16 LOW [facility] 40.0 [facility] HEMATOLOGY Segs 72.3 % 45.0 - 11/16 [facility] 75.0 [facility] HEMATOLOGY Large Plt Slight None Seen 11/16 [facility] (11/16/2012 13:17:00) HEMATOLOGY Elliptocyte Slight None Seen 11/16 [facility] (11/16/2012 13:17:00) HEMATOLOGY Polychrom Slight None Seen 11/16 [facility] (11/16/2012 13:17:00) Center HEMATOLOGY Microcyte 1+ None Seen 11/16 [facility] (11/16/2012 13:17:00) HEMATOLOGY Basophils # 0.1 K/CMM 0.0 - 0.2 11/16 Normal [facility] HEMATOLOGY Hypochrom Slight None Seen 11/16 Normal [facility] (11/16/2012 13:17:00) Center HEMATOLOGY Anisocyte 1+ None Seen 11/16 [facility] (11/16/2012 13:17:00) HEMATOLOGY Schistocyte Occasional 11/16 NA [facility] HEMATOLOGY Monocytes 8.6 % 2.0 - 12.0 11/16 Normal [facility] HEMATOLOGY Eosinophils 1.5 % 0.0 - 4.0 11/16 Normal [facility] HEMATOLOGY Monocytes # 1.1 K/CMM 0.0 - 0.8 11/16 HI [facility] HEMATOLOGY Segs-Bands # 9.7 K/CMM 1.5 - 8.1 11/16 [facility] Medical Center HEMATOLOGY Eosinophils # 0.2 [...] WBC 13.3 K/CMM 3.7 - 10.4 11/16 [facility] Center HEMATOLOGY RDW 18.0 % 11.5 - 11/16 [facility] [place] 14.5 /2012 Medical Center HEMATOLOGY Hct 32.4 % 36.0 - 11/16 LOW [place] 48.0 /2012 Medical Center HEMATOLOGY MCHC 33.3 g/dL 32.0 - 11/16 Normal [facility] 36.0 /2012 Medical Center HEMATOLOGY MCV 75.4 fL 81.0 - 11/16 LOW [place] 99.0 /2012 Medical Center HEMATOLOGY MCH 25.1 pg 27.0 - 11/16 [facility] 31.0 /2012 Medical Center HEMATOLOGY Platelet 230 K/CMM 133 - 450 11/16 Normal [facility] HEMATOLOGY MPV 9.9 fL 7.4 - 10.4 11/16 Normal Medical Center BEDSIDE Comment1 Notify 11/14 NA [facility]i GLUCOSE MARTÍNEZ/ /2012 Medical TESTING Center BEDSIDE Gluc POC 266 mg/dL 11/14 [place] 2Interpretive [facility] GLUCOSE Lifsc Data: Medical TESTING Center Upper Reportable Limit: 200 mg/dL. BEDSIDE Comment1 Notify 11/14 NA [facility] GLUCOSE MARTÍNEZ/ /2012 Medical TESTING Center BEDSIDE Gluc POC 140 mg/dL - 11/14 [place] 3Interpretive [facility] GLUCOSE Lifsc Data: Medical TESTING Center Upper Reportable Limit: 200 mg/dL. BEDSIDE Comment1 Notify 11/14 NA [facility] GLUCOSE MARTÍNEZ/ /2012 Medical TESTING Center BEDSIDE Gluc POC 201 mg/dL - 11/14 [place] 4Interpretive [facility] GLUCOSE Lifsc Data: [facility] Upper Reportable Limit: 200 mg/dL. CHEMISTRY A/G Ratio 0.9 0.7 - 1.6 11/14 Normal [facility] CHEMISTRY AST 41 unit/L 0 - 37 11/14 HI [facility] CHEMISTRY eGFR 104 11/14 NA 6Result Comment: The eGFR is calculated using the CKD-EPI formula. In most young, healthy individuals the eGFR will be > 90 mL/min/1.73m2. The eGFR declines with age. An eGFR of 60-89 may be normal in [facility] mL/min/1.7 some populations, particularly the elderly, for whom the CKD-EPI formula has not been extensively validated. Use of the eGFR is not recommended in the following populations: [address] Individuals with unstable creatinine concentrations, including [...] 2.9 g/dL 3.5 - 5.0 11/14 LOW [facility] CHEMISTRY Alk Phos 84 unit/L 39 - 136 11/14 Normal [facility] CHEMISTRY BUN 3 mg/dL 7 - 22 11/14 LOW [facility] CHEMISTRY Creatinine 0.7 mg/dL 0.5 - 1.4 11/14 Normal [place] [facility] CHEMISTRY Sodium Lvl 136 meq/L 135 - 145 11/14 Normal [facility] CHEMISTRY Total Protein 6.3 g/dL 6.4 - 8.4 11/14 LOW [facility] CHEMISTRY ALT 51 unit/L 0 - 65 11/14 Normal [facility] CHEMISTRY Potassium Lvl 3.7 meq/L 3.5 - 5.1 11/14 Normal [facility] CHEMISTRY Chloride Lvl 101 meq/L 95 - 109 11/14 Normal [facility] CHEMISTRY Glucose Lvl 210 mg/dL 70 - 99 11/14 [place] 9Interpretive Data: Adult reference range values reflect the clinical guidelines of the [place] [employer]. [facility] Center CHEMISTRY AGAP 15.7 meq/L 10.0 - 11/14 Normal [place] 20.0 /2012 [facility] CHEMISTRY B/C Ratio 4 6 - 25 11/14 LOW [facility] CHEMISTRY Globulin 3.4 g/dL 2.0 - 4.0 11/14 Normal [facility] CHEMISTRY CO2 23 meq/L 24 - 32 11/14 LOW [facility] CHEMISTRY Bili Total 0.4 mg/dL 0.2 - 1.3 11/14 Normal [facility] CHEMISTRY Calcium Lvl 8.5 mg/dL 8.5 - 10.5 11/14 Normal [facility] CHEMISTRY Phosphorus 3.6 mg/dL 2.5 - 4.5 11/14 Normal [facility] CHEMISTRY Magnesium Lvl 1.5 mg/dL 1.8 - 2.4 11/14 LOW [facility] CHEMISTRY Ca Norm mgdL 3.52 mg/dL 4.65 - 11/14 LOW [facility] 5. [facility] CHEMISTRY Ca Ion mgdL 3.32 mg/dL 4.65 - 11/14 CRIT [place] 5. [facility] CHEMISTRY Ca Ion 0.83 1.16 - 11/14 CRIT 15Result [place] mMol/L 1. Comment: Medical Critical Center Result(s) called to Arlin Rose at 11/14/2012 00:23:56 CDT_ by_tvs. Read back OK. CHEMISTRY Ca Norm 0.88 1.16 - 11/14 CRIT [place] mMol/L 1. Medical [place] HEMATOLOGY Platelet 221 K/CMM 133 - 450 11/14 Normal [facility] HEMATOLOGY RDW 19.0 % 11.5 - 03 HI [place] 14.5 /2012 Medical Center HEMATOLOGY MCHC 32.4 g/dL 32.0 - 11/14 Normal [place] 36.0 Medical Center HEMATOLOGY MCV 75.5 fL 81.0 - 11/14 [facility] [place] 99.0 /2012 [facility] HEMATOLOGY Hct 35.5 % 36.0 - 11/14 LOW [place] 48.0 /2012 [facility] HEMATOLOGY Hgb 11.5 g/dL 12.0 - 11/14 LOW [place] 16.0 Medical Center HEMATOLOGY MCH 24.5 pg 27.0 - 11/14 [facility] [place] 31.0 /2012 Medical Center HEMATOLOGY MPV 9.1 fL 7.4 - 10.4 11/14 Normal [facility] HEMATOLOGY RBC 4.70 M/CMM 4.20 - 03 Normal [place] 5.40 /2012 [facility] HEMATOLOGY WBC 8.6 K/CMM 3.7 - 10.4 11/14 Normal [facility] HEMATOLOGY Segs 53.3 % 45.0 - 11/14 Normal [place] 75.0 /2012 [facility] HEMATOLOGY Microcyte 1+ None Seen 11/14 ABN Medical *ABN* Center (11/13/2012 23:45:00) HEMATOLOGY Basophils # 0.1 K/CMM 0.0 - 0.2 11/14 Normal [facility] HEMATOLOGY Eosinophils # 0.2 K/CMM 0.0 - 0.5 11/14 Normal [facility] HEMATOLOGY Monocytes # 0.9 K/CMM 0.0 - 0.8 11/14 HI [facility] HEMATOLOGY Lymphocytes # 2.9 K/CMM 1.0 - 5.5 11/14 Normal [facility] HEMATOLOGY Monocytes 10.3 % 2.0 - 12.0 11/14 Normal [facility] HEMATOLOGY Lymphocytes 33.6 % 20.0 - 11/14 Normal [place] 40.0 [facility] HEMATOLOGY Segs-Bands # 4.6 K/CMM 1.5 - 8.1 11/14 Normal [facility] HEMATOLOGY Basophils 0.7 % 0.0 - 1.0 11/14 Normal [facility] HEMATOLOGY Eosinophils 2.1 % 0.0 - 4.0 11/14 Normal [facility] CHEMISTRY Lipase Lvl 43 unit/L 73 - 393 11/13 LOW [facility] CHEMISTRY Amylase Lvl 14 unit/L 25 - 115 11/13 LOW [facility] CHEMISTRY A/G Ratio 0.8 0.7 - 1.6 11/13 Normal [facility] CHEMISTRY AST 56 unit/L 0 - 37 11/13 HI [facility] CHEMISTRY Alk Phos 67 unit/L 39 - 136 11/13 Normal [facility] CHEMISTRY Globulin 2.9 g/dL 2.0 - 4.0 11/13 Normal [facility] CHEMISTRY Total Protein 5.3 g/dL 6.4 - 8.4 11/13 LOW [facility] CHEMISTRY Albumin Lvl 2.4 g/dL 3.5 - 5.0 11/13 LOW [facility] CHEMISTRY ALT 41 unit/L 0 - 65 11/13 Normal [facility] CHEMISTRY Bili Indirect 0.3 mg/dL 0.0 - 1.0 11/13 Normal [facility] CHEMISTRY Bili Direct 0.1 mg/dL 0.0 - 0.3 11/13 Normal [facility] CHEMISTRY Bili Total 0.4 mg/dL 0.2 - 1.3 11/13 Normal [facility] CHEMISTRY eGFR 137 11/13 NA 7Result Comment: The eGFR is calculated using the CKD-EPI formula. In most young, healthy individuals the eGFR will be > 90 mL/min/1.73m2. The eGFR declines with age. An eGFR of 60-89 may be normal in [facility] mL/min/1. some populations, particularly the elderly, for whom the CKD-EPI formula has not been extensively validated. Use of the eGFR is not recommended in the following populations: [address] Individuals with unstable creatinine concentrations, including [...] AGAP 17.3 meq/L 10.0 - 11/13 Normal [facility] 20.0 [facility] CHEMISTRY Calcium Lvl 6.7 mg/dL 8.5 - 10.5 11/13 CRIT 13Result Comment: [facility] Critical Center Result(s) called to _hansel gustafson at _11/13/2012 06:59:47 CDT bylg. Read back OK. CHEMISTRY CO2 17 meq/L 24 - 32 11/13 LOW [facility] CHEMISTRY Chloride Lvl 111 meq/L 95 - 109 11/13 HI [facility] CHEMISTRY Potassium Lvl 3.3 meq/L 3.5 - 5.1 11/13 LOW 5Result Comment: Medical Specimen Center Slightly Hemolyzed. CHEMISTRY Sodium Lvl 142 meq/L 135 - 145 11/13 Normal [facility] CHEMISTRY Creatinine 0.3 mg/dL 0.5 - 1.4 11/13 LOW [facility] l /2012 [facility] Center CHEMISTRY BUN 3 mg/dL 7 - 22 11/13 [facility] Center CHEMISTRY Glucose Lvl 104 mg/dL 70 - 99 11/13 [place] 10Interpretive Data: Adult reference range values reflect the clinical guidelines of the [place] [employer]. Medical Center CHEMISTRY Magnesium Lvl 1.3 mg/dL 1.8 - 2.4 11/13 LOW [facility] CHEMISTRY Phosphorus 2.8 mg/dL 2.5 - 4.5 11/13 Normal [facility] CHEMISTRY Ca Ion 1.01 1.16 - 11/13 [facility] [place] mMol/L 1. [facility] Center CHEMISTRY Ca Norm 1.07 1.16 - 11/13 [facility] mMol/L 1. [facility] CHEMISTRY Ca Norm mgdL 4.28 mg/dL 4.65 - 11/13 [facility] 5. [facility] CHEMISTRY Ca Ion mgdL 4.04 mg/dL 4.65 - 11/13 [facility] 5.20 Medical Center HEMATOLOGY MCV 78.6 fL 81.0 - 11/13 [facility] 99.0 /2012 [facility] HEMATOLOGY MPV 9.1 fL 7.4 - 10.4 11/13 Normal [facility] HEMATOLOGY MCHC 31.1 g/dL 32.0 - 11/13 [facility] [place] 36.0 /2012 [facility] HEMATOLOGY MCH 24.4 pg 27.0 - 11/13 [facility] 31.0 [facility] HEMATOLOGY Hct 29.4 % 36.0 - 03 [facility] [place] 48.0 /2012 [facility] HEMATOLOGY RDW 19.1 % 11.5 - 03 [facility] [place] 14.5 [facility] HEMATOLOGY Platelet 192 K/CMM 133 - 450 11/13 Normal [facility] HEMATOLOGY Hgb 9.1 g/dL 12.0 - 03 [facility] [place] 16.0 /2012 [facility] HEMATOLOGY RBC 3.74 M/CMM 4.20 - 03 [facility] [place] 5.40 /2012 Medical Center HEMATOLOGY WBC 6.8 K/CMM 3.7 - 10.4 11/13 Normal [facility] HEMATOLOGY Plt Morph Normal 11/13 Normal Medical (11/13/2012 05:00:00) Center HEMATOLOGY Atypical 0.0 % <=0.0 11/13 Normal [facility] Lymph [facility] HEMATOLOGY RBC Morph Normal 11/13 Normal [facility] (11/13/2012 05:00:00) [place] HEMATOLOGY Eosinophils 2.0 % 0.0 - 4.0 11/13 Normal [facility] HEMATOLOGY Bands 0.0 % 0.0 - 11.0 11/13 Normal [facility] HEMATOLOGY Segs 51.0 % 45.0 - 11/13 Normal [facility] 75.0 [facility] HEMATOLOGY Eosinophils # 0.1 K/CMM 0.0 - 0.5 11/13 Normal [facility] HEMATOLOGY Segs-Bands # 3.5 K/CMM 1.5 - 8.1 11/13 Normal [facility] HEMATOLOGY Monocytes 5.0 % 2.0 - 12.0 11/13 Normal [facility] HEMATOLOGY Lymphocytes 42.0 % 20.0 - 11/13 HI [facility] 40.0 [facility] HEMATOLOGY Monocytes # 0.3 K/CMM 0.0 - 0.8 11/13 Normal [facility] HEMATOLOGY Lymphocytes # 2.9 K/CMM 1.0 - 5.5 11/13 [facility] INFECTIOUS C difficile Negative 1 Negative 11/13 Normal 1Interpretive Data: Delectable illumigene Clostridium difficile assay utilizes loop-mediated isothermal DNA amplification (LAMP) technology to detect a 204 bp region of the tcdA gene within the PaLoc gene [facility] segment present in all known toxigenic C. difficile strains. [facility] (11/12/2012 21:54:26) [place] The assay utilizes FDA cleared IVD reagents. Performance characteristics have been verified by the [facility] within the [facility]. The [facility] is authorized under the Clinical Laboratory Improvement Amendment of 1988 (CLIA-88) to perform high complexity testing. CHEMISTRY Total CK 25 unit/L 12 - 191 11/12 Normal [facility] CHEMISTRY Troponin-I null 0.00 - 11/12 Normal [facility] 0.40 [facility] CHEMISTRY eGFR 88 11/12 NA 8Result Comment: The eGFR is calculated using the CKD-EPI formula. In most young, healthy individuals the eGFR will be > 90 mL/min/1.73m2. The eGFR declines with age. An eGFR of 60-89 may be normal in [facility] mL/min/1. some populations, particularly the elderly, for whom the CKD-EPI formula has not been extensively validated. Use of the eGFR is not recommended in the following populations: [facility] Individuals with unstable creatinine concentrations, including [...] AGAP 13.7 meq/L 10.0 - 11/12 Normal [facility] 20.0 [facility] CHEMISTRY Calcium Lvl 8.5 mg/dL 8.5 - 10.5 11/12 Normal [facility] CHEMISTRY CO2 25 meq/L 24 - 32 11/12 Normal [facility] CHEMISTRY Potassium Lvl 3.7 meq/L 3.5 - 5.1 11/12 Normal [facility] CHEMISTRY Sodium Lvl 138 meq/L 135 - 145 11/12 Normal [facility] CHEMISTRY Chloride Lvl 103 meq/L 95 - 109 11/12 Normal [facility] CHEMISTRY Creatinine 0.8 mg/dL 0.5 - 1.4 11/12 Normal [facility] CHEMISTRY BUN 5 mg/dL 7 - 22 11/12 LOW [facility] CHEMISTRY Glucose Lvl 40 mg/dL 70 - 99 11/12 CRIT 12Interpretive Data: Adult reference range values reflect the clinical guidelines of the [place] [employer]. [facility] CHEMISTRY Ca Norm mgdL 4.20 mg/dL 4.65 - 11/12 [facility] 01.23 [facility] CHEMISTRY Ca Norm 1.05 1.16 - 11/12 LOW [place] mMol/L 1. [facility] CHEMISTRY Ca Ion mgdL 4.00 mg/dL 4.65 - 11/12 LOW [facility] 01.23 [facility] CHEMISTRY Ca Ion 1.00 1.16 - 11/12 LOW [facility] mMol/L 1.30 [facility] CHEMISTRY Magnesium Lvl 1.9 mg/dL 1.8 - 2.4 11/12 Normal [facility] CHEMISTRY Phosphorus 3.2 mg/dL 2.5 - 4.5 11/12 Normal [facility] HEMATOLOGY MCHC 32.0 g/dL 32.0 - 11/12 Normal [place] 36.0 /2012 [facility] HEMATOLOGY MCH 24.1 pg 27.0 - 11/12 LOW [place] 31.0 [facility] HEMATOLOGY MCV 75.3 fL 81.0 - 11/12 LOW [facility] 99.0 /2012 [facility] HEMATOLOGY WBC 9.2 K/CMM 3.7 - 10.4 11/12 Normal [facility] HEMATOLOGY Platelet 233 K/CMM 133 - 450 11/12 Normal [facility] HEMATOLOGY MPV 9.1 fL 7.4 - 10.4 11/12 Normal [facility] HEMATOLOGY RDW 19.0 % 11.5 - 11/12 HI [place] 14.5 [facility] HEMATOLOGY RBC 4.19 M/CMM 4.20 - 11/12 [facility] 5.40 /2012 [facility] HEMATOLOGY Hgb 10.1 g/dL 12.0 - 11/12 LOW [facility] 16.0 [facility] HEMATOLOGY Hct 31.6 % 36.0 - 11/12 [facility] 48.0 /2012 [facility] HEMATOLOGY Hypochrom Slight None Seen 11/12 Normal [facility] (11/12/2012 00:19:00) Center HEMATOLOGY Large Plt Slight None Seen 11/12 ABN Medical *ABN* Center (11/12/2012 00:19:00) HEMATOLOGY Atypical 0.0 % <=0.0 11/12 Normal [facility] Lymphs [facility] HEMATOLOGY Basophils 1.0 % 0.0 - 1.0 11/12 Normal [facility] HEMATOLOGY Lymphocytes 39.0 % 20.0 - 11/12 Normal [facility] 40.0 [facility] HEMATOLOGY Bands 0.0 % 0.0 - 11.0 11/12 Normal [facility] HEMATOLOGY Eosinophils 2.0 % 0.0 - 4.0 11/12 Normal [facility] HEMATOLOGY Monocytes 6.0 % 2.0 - 12.0 11/12 Normal [facility] HEMATOLOGY Segs 52.0 % 45.0 - 11/12 Normal [place] 75.0 [facility] HEMATOLOGY Basophils # 0.1 K/CMM 0.0 - 0.2 11/12 Normal [facility]2012 [facility] HEMATOLOGY Monocytes # 0.6 K/CMM 0.0 - 0.8 11/12 Normal [facility]2012 [facility] HEMATOLOGY Lymphocytes # 3.6 K/CMM 1.0 - 5.5 11/12 Normal [facility] HEMATOLOGY Segs-Bands # 4.8 K/CMM 1.5 - 8.1 11/12 Normal [facility] HEMATOLOGY Eosinophils # 0.2 K/CMM 0.0 - 0.5 11/12 Normal [facility] HEMATOLOGY Microcyte 1+ None Seen 11/11 [facility] [place] (11/11/2012 03:41:00) HEMATOLOGY Basophils # 0.1 K/CMM 0.0 - 0.2 11/11 Normal [facility] HEMATOLOGY Basophils 0.7 % 0.0 - 1.0 11/11 Normal [facility] HEMATOLOGY Microcyte 1+ None Seen 11/09 [facility] [place] (11/09/2012 05:12:00) URINALYSIS UA pH 5.0 5.0 - 8.0 11/08 Normal 2012 [facility] URINALYSIS UA Protein 20 mg/dL Negative 11/08 [facility] [place] (11/07/2012 20:54:00) URINALYSIS UA Turbidity Slight Clear 11/08 [facility] [place] (11/07/2012 20:54:00) URINALYSIS UA Spec Grav 1.010 <=1.030 11/08 Normal [facility] URINALYSIS UA Color Yellow Yellow 11/08 [facility] [place] (11/07/2012 20:54:00) URINALYSIS UA Bacteria Moderate /HPF None Seen 11/08 [facility] [place] (11/07/2012 20:54:00) URINALYSIS UA Mucus Few /LPF None Seen 11/08 [facility] [place] (11/07/2012 20:54:00) URINALYSIS UA WBC null 0 - 5 11/08 [facility] URINALYSIS UA RBC 4 /HPF 0 - 2 11/08 [facility] URINALYSIS UA Sq Epi Moderate /LPF Few 11/08 ABN [facility] *ABN* Center (11/07/2012 20:54:00) URINALYSIS UA Leuk Est Large Negative 11/08 [facility] *ABN* Center (11/07/2012 20:54:00) URINALYSIS UA Blood Trace Negative 11/08 [facility] *[facility]* [place] (11/07/2012 20:54:00) URINALYSIS UA Nitrite Negative Negative 11/08 Normal [facility] (11/07/2012 20:54:00) Center URINALYSIS UA Ketones 40 mg/dL Negative 11/08 [facility] [place] (11/07/2012 20:54:00) URINALYSIS UA Bili Negative Negative 11/08 [facility] *NA* Center (11/07/2012 20:54:00) URINALYSIS Micro? Performed 11/08 NA [facility] (11/07/2012 20:54:00) URINALYSIS UA <=1.0 0.1 - 1.0 11/[address] [facility] Urobilinogen mg/dL Medical
*NA*< Center br/>(11/07 20:54:00) <sup> </sup> URINALYSIS UA Glucose >=1000mg/d 11/08 NA [facility] URINALYSIS UA Hyal Cast 37 /LPF 0 - 2 11/08 [facility] URINALYSIS UA Ketones 40 mg/dL Negative 11/07 [facility] *ABN* Center (11/07/2012 06:24:57) CHEMISTRY Hgb [...] to lower CHEMISTRY Ketone 2.20 <=0.27 11/06 [facility] [place] Quantitative mmol/L /2012 Medical [place] CHEMISTRY U Osmolality 207 300 - 800 11/06 LOW [place] mOsm/kg Medical [place] CHEMISTRY POC A %FIO2 21.0 % 18.0 - 11/06 Normal [facility] 100.0 Medical [place] CHEMISTRY POC A LA 0.9 mMol/L 0.5 - 2.2 11/06 Normal [facility] CHEMISTRY POC A Glu 281 mg/dL 70 - 99 11/06 HI [facility] CHEMISTRY POC A Temp 37.0 Abby 11/06 NA [facility] CHEMISTRY POC A Source ART 11/06 NA [facility] CHEMISTRY POC A pH 7.45 7.35 - 11/06 Normal [facility] 7.45 [facility] CHEMISTRY POC A HCO3 24 mMol/L 22 - 26 11/06 Normal [facility] CHEMISTRY POC A PCO2 35 mm[Hg] 35 - 45 11/06 Normal [facility] CHEMISTRY POC A PO2 85 mm[Hg] 80 - 100 11/06 Normal [facility] CHEMISTRY POC A BE 0 mMol/L -2-2 - 2 11/06 Normal [facility] CHEMISTRY POC A O2 Sat 97.0 % 95.0 - 11/06 Normal [facility] 100.0 [facility] CHEMISTRY POC A Na 123 meq/L 135 - 145 11/06 LOW [facility] CHEMISTRY POC A Hct 31.0 % 36.0 - 11/06 [facility] 48.0 [facility] CHEMISTRY POC A Ca Ion 1.11 1.16 - 11/06 [facility] mMol/L 1.30 [facility] CHEMISTRY POC A K 3.7 meq/L 3.5 - 5.1 11/06 Normal [facility] CHEMISTRY POC A BE -4 mMol/L -2-2 - 2 11/06 LOW [facility] CHEMISTRY POC A HCO3 20 mMol/L 22 - 26 11/06 LOW [facility] CHEMISTRY POC A Source ART 11/06 NA [facility] CHEMISTRY POC A Temp 37.0 Abby 11/06 NA [facility] CHEMISTRY POC A pH 7.42 7.35 - 03 Normal [facility] 7.45 /2012 [facility] CHEMISTRY POC A PO2 81 mm[Hg] 80 - 100 11/06 Normal [facility] CHEMISTRY POC A O2 Sat 96.0 % 95.0 - 03 Normal [facility] 100.0 [facility] CHEMISTRY POC A PCO2 31 mm[Hg] 35 - 45 11/06 LOW [facility] CHEMISTRY POC A %FIO2 21.0 % 18.0 - 03 Normal [facility] 100.0 /2012 [facility] Microbiolog Culture: 03 [facility] y Urine /2012 [facility] CHEMISTRY Troponin-I null 0.00 - 11/06 Normal [facility] 0.40 /2012 [facility] CHEMISTRY Troponin-T null 0.000 - 11/06 Normal [facility] 0.100 /2012 [facility] CHEMISTRY Total CK 48 unit/L 12 - 191 11/06 Normal [facility] URINALYSIS UA <=1.0 0.1 - 1.0 11/[address] [facility] Urobilinogen mg/dL Medical
*NA*< Center br/>(11/06 03:15:40) <sup> </sup> URINALYSIS UA Leuk Est Large Negative 11/06 [facility] *ABN* Center (11/06/2012 03:15:40) URINALYSIS UA Sq Epi Moderate /LPF Few 11/06 [facility] *ABN* Center (11/06/2012 03:15:40) URINALYSIS UA Mucus Few /LPF None Seen 11/06 [facility] Medical *NA* Center (11/06/2012 03:15:40) URINALYSIS UA Nitrite Negative Negative 11/06 Normal [facility] (11/06/2012 03:15:40) Center URINALYSIS UA Bacteria Occasional /HPF None Seen 11/06 [facility] *NA* Center (11/06/2012 03:15:40) URINALYSIS UA WBC 67 /HPF 0 - 5 11/06 [facility] URINALYSIS UA Blood Negative Negative 11/06 Normal [facility] (11/06/2012 03:15:40) Center URINALYSIS UA Bili Negative Negative 11/06 [facility] Medical *NA* Center (11/06/2012 03:15:40) URINALYSIS UA Ketones 60 mg/dL Negative 11/06 [facility] Medical *ABN* Center (11/06/2012 03:15:40) URINALYSIS UA pH 5.0 5.0 - 8.0 11/06 Normal [facility] URINALYSIS UA Glucose >=1000 mg/dL Negative 11/06 [facility] Medical *ABN* Center (11/06/2012 03:15:40) URINALYSIS UA Spec Grav 1.014 <=1.030 11/06 Normal [facility] URINALYSIS UA Protein Negative mg/dL Negative 11/06 Normal [facility] (11/06/2012 03:15:40) Center URINALYSIS UA Turbidity Slight Clear 11/06 ABN Medical *ABN* Center (11/06/2012 03:15:40) URINALYSIS UA Color Yellow Yellow 11/06 NA [facility] *NA* Center (11/06/2012 03:15:40) CHEMISTRY Troponin-I 0.02 ng/mL 0.00 - 11/06 Normal [facility] 0.40 [facility] CHEMISTRY Total CK 30 unit/L 12 - 191 11/06 Normal [facility] CHEMISTRY Troponin-T null 0.000 - 11/06 Normal [facility] 0.100 [facility] CHEMISTRY Ketone 3.00 <=0.27 11/06 [facility] Quantitative mmol/L /2012 [facility] CHEMISTRY Lipase Lvl 89 unit/L 73 - 393 11/06 Normal [facility] CHEMISTRY Globulin 4.3 g/dL 2.0 - 4.0 11/06 HI [facility] CHEMISTRY A/G Ratio 0.9 0.7 - 1.6 11/06 Normal [facility] CHEMISTRY B/C Ratio 7 6 - 25 11/06 Normal [facility] CHEMISTRY Albumin Lvl 3.7 g/dL 3.5 - 5.0 11/06 Normal [facility] CHEMISTRY Total Protein 8.0 g/dL 6.4 - 8.4 11/06 Normal [facility] CHEMISTRY ALT 62 unit/L 0 - 65 11/06 Normal [facility] CHEMISTRY Alk Phos 119 unit/L 39 - 136 11/06 Normal [facility] CHEMISTRY Bili Total 0.5 mg/dL 0.2 - 1.3 11/06 Normal [facility] CHEMISTRY AST 44 unit/L 0 - 37 11/06 HI Medical [place] HEMATOLOGY Polychrom Slight None Seen 11/06 Normal Medical (11/05/2012 20:40:00) Center HEMATOLOGY Hypochrom Slight None Seen 11/06 Normal Medical (11/05/2012 20:40:00) Center HEMATOLOGY Bands 1.0 % 0.0 - 11.0 11/06 Normal [facility] HEMATOLOGY Anisocyte 1+ None Seen 11/06 ABN Medical *ABN* Center (11/05/2012 20:40:00) HEMATOLOGY Atypical 0.0 % <=0.0 11/06 Normal [facility] HEMATOLOGY Macrocyte 1+ None Seen 11/06 [facility] Medical *ABN* [place] (11/05/2012 20:40:00) HEMATOLOGY Plt Morph Normal 11/06 Normal [facility] (11/05/2012 20:40:00) Center HEMATOLOGY INR 0.98 0.85 - 11/06 Normal 16Interpretive Data: RECOMMENDED RANGES FOR PROTIME INR: [facility] 1. 2.0-3.0 for most medical and surgical thromboembolic states. Medical 2.5-3.5 for artificial heart valves and recurrent embolism. Center INR SHOULD BE USED ONLY FOR PATIENTS ON STABLE ANTICOAGULANT THERAPY. HEMATOLOGY PT 13.2 s 12.0 - 11/06 Normal [facility] 14.7 Medical [place] HEMATOLOGY PTT 26.4 s 22.9 - 11/06 Normal 17Interpretiv [facility] 35.8 e Data: [facility] Heparin Center Therapeutic Range: 57 - 92 Seconds BEDSIDE Gluc POC null - 11/01 CRIT 3Interpretive [facility] GLUCOSE Lifscn Data: Medical TESTING Center Upper Reportable Limit: 200 mg/dL. BEDSIDE Comment1 Notify 11/01 NA [facility] GLUCOSE RN/ /2012 Medical TESTING Center BEDSIDE Gluc POC 237 mg/dL - 10/31 HI 4Interpretive [facility] GLUCOSE Lifscn Data: Medical TESTING Center Upper Reportable Limit: 200 mg/dL. BEDSIDE Gluc POC 357 mg/dL - 10/31 HI 5Interpretive [facility] GLUCOSE Lifscn Data: [facility] Center Upper Reportable Limit: 200 mg/dL. BEDSIDE Comment1 Notify 10/31 NA [facility] GLUCOSE RN/ [facility] Center CHEMISTRY Phosphorus 4.2 mg/dL 2.5 - 4.5 10/31 Normal [facility] CHEMISTRY Ca Norm mgdL 4.64 mg/dL 4.65 - 10/31 LOW [facility] 5. [facility] CHEMISTRY Ca Ion mgdL 4.44 mg/dL 4.65 - 10/31 LOW [facility] 5.20 [facility] CHEMISTRY Ca Norm 1.16 1.16 - 10/31 Normal [place] mMol/L 1. [facility] CHEMISTRY Ca Ion 1.11 1.16 - 10/31 LOW [facility] mMol/L . [facility] CHEMISTRY AGAP 16.9 meq/L 10.0 - 10/31 Normal [facility] 20.0 [facility] CHEMISTRY eGFR 67 10/31 NA 7Result Comment: The eGFR is calculated using the CKD-EPI formula. In most young, healthy individuals the eGFR will be > 90 mL/min/1.73m2. The eGFR declines with age. An eGFR of 60-89 may be normal in [facility] mL/min/1.7 some populations, particularly the elderly, for whom the CKD-EPI formula has not been extensively validated. Use of the eGFR is not recommended in the following populations: [place] [id number] Center Individuals with unstable creatinine concentrations, including [...] 1.0 mg/dL 0.5 - 1.4 10/31 Normal [facility] Lvl [facility] Center CHEMISTRY Sodium Lvl 133 meq/L 135 - 145 10/31 LOW [facility] CHEMISTRY Calcium Lvl 8.3 mg/dL 8.5 - 10.5 10/31 LOW [facility] CHEMISTRY Potassium Lvl 3.9 meq/L 3.5 - 5.1 10/31 Normal [facility] CHEMISTRY Chloride Lvl 94 meq/L 95 - 109 10/31 LOW [facility] CHEMISTRY CO2 26 meq/L 24 - 32 10/31 Normal [facility] CHEMISTRY BUN 8 mg/dL 7 - 22 10/31 Normal [facility] CHEMISTRY Glucose Lvl 75 mg/dL 70 - 99 10/31 Normal 10Interpretive Data: Adult reference range values reflect the clinical guidelines of the [place] [employer]. [facility] Center CHEMISTRY Magnesium Lvl 1.9 mg/dL 1.8 - 2.4 10/31 Normal [facility] HEMATOLOGY MPV 9.4 fL 7.4 - 10.4 10/31 Normal [facility] HEMATOLOGY Hgb 9.7 g/dL 12.0 - 10/31 [facility] 16.0 [facility] HEMATOLOGY RBC 4.06 M/CMM 4.20 - 10/31 [facility] 5.40 [facility] HEMATOLOGY MCV 74.3 fL 81.0 - 10/31 [facility] 99.0 [facility] HEMATOLOGY Hct 30.2 % 36.0 - 10/31 [facility] 48.0 [facility] HEMATOLOGY MCHC 32.2 g/dL 32.0 - 10/31 Normal [facility] 36.0 [facility] HEMATOLOGY MCH 23.9 pg 27.0 - 10/31 [facility] 31.0 [facility] HEMATOLOGY Platelet 199 K/CMM 133 - 450 10/31 Normal [facility] HEMATOLOGY RDW 17.5 % 11.5 - 10/31 [facility] 14.5 [facility] HEMATOLOGY WBC 9.4 K/CMM 3.7 - 10.4 10/31 Normal [facility] HEMATOLOGY Lymphocytes # 2.7 K/CMM 1.0 - 5.5 10/31 Normal [facility] HEMATOLOGY Basophils 0.6 % 0.0 - 1.0 10/31 Normal [facility] HEMATOLOGY Segs-Bands # 5.2 K/CMM 1.5 - 8.1 10/31 [facility] HEMATOLOGY Microcyte 1+ None Seen 10/31 [facility] Medical *ABN* Center (10/31/2012 04:00:00) HEMATOLOGY Monocytes # 1.1 K/CMM 0.0 - 0.8 10/31 [facility] Medical Center HEMATOLOGY Eosinophils # 0.3 K/CMM 0.0 - 0.5 10/31 Normal [facility] HEMATOLOGY Basophils # 0.1 K/CMM 0.0 - 0.2 10/31 Normal [facility] HEMATOLOGY Segs 55.2 % 45.0 - 10/31 Normal [facility] 75.0 [facility] HEMATOLOGY Monocytes 11.8 % 2.0 - 12.0 10/31 Normal [facility] HEMATOLOGY Lymphocytes 28.9 % 20.0 - 10/31 Normal [place] 40.0 [facility] HEMATOLOGY Eosinophils 3.5 % 0.0 - 4.0 10/31 Normal [facility] BEDSIDE Comment1 Notify 10/31 NA [facility] GLUCOSE RN/MD [facility] CHEMISTRY Ca Norm mgdL 4.92 mg/dL 4.65 - 10/30 Normal [facility] 5. [facility] CHEMISTRY Ca Ion mgdL 4.76 mg/dL 4.65 - 10/30 Normal [facility] 5. [facility] CHEMISTRY Ca Norm 1.23 1.16 - 10/30 Normal [facility] mMol/L 1. [facility] CHEMISTRY Ca Ion 1.19 1.16 - 10/30 Normal [facility] mMol/L 1. [facility] CHEMISTRY Phosphorus 3.8 mg/dL 2.5 - 4.5 10/30 Normal [facility] CHEMISTRY Magnesium Lvl 1.9 mg/dL 1.8 - 2.4 10/30 Normal [facility] CHEMISTRY eGFR 88 10/30 NA 8Result Comment: The eGFR is calculated using the CKD-EPI formula. In most young, healthy individuals the eGFR will be > 90 mL/min/1.73m2. The eGFR declines with age. An eGFR of 60-89 may be normal in [facility] mL/min/1.7 /2012 some populations, particularly the elderly, for whom the CKD-EPI formula has not been extensively validated. Use of the eGFR is not recommended in the following populations: [address] Individuals with unstable creatinine concentrations, including [...] values reflect the clinical guidelines of the [place] [employer]. Medical Center CHEMISTRY Creatinine 0.8 mg/dL 0.5 - 1.4 10/30 Normal [facility] Lvl [facility] CHEMISTRY BUN 6 mg/dL 7 - 22 10/30 LOW [facility] CHEMISTRY Sodium Lvl 132 meq/L 135 - 145 10/30 LOW [facility] CHEMISTRY Calcium Lvl 8.5 mg/dL 8.5 - 10.5 10/30 Normal [facility] Center CHEMISTRY CO2 29 meq/L 24 - 32 10/30 Normal [facility] CHEMISTRY Chloride Lvl 92 meq/L 95 - 109 10/30 LOW [facility] CHEMISTRY Potassium Lvl 3.8 meq/L 3.5 - 5.1 10/30 Normal [facility] CHEMISTRY AGAP 14.8 meq/L 10.0 - 10/30 Normal [facility] 20.0 [facility] HEMATOLOGY Platelet 245 K/CMM 133 - 450 10/30 Normal [facility] HEMATOLOGY MPV 9.4 fL 7.4 - 10.4 10/30 Normal [facility] HEMATOLOGY Hct 33.1 % 36.0 - 10/30 [facility] 48.0 [facility] HEMATOLOGY RBC 4.47 M/CMM 4.20 - 10/30 Normal [facility] 5.40 /2012 Medical [place] HEMATOLOGY WBC 11.0 K/CMM 3.7 - 10.4 10/30 [facility] HEMATOLOGY Hgb 10.6 g/dL 12.0 - 10/30 [facility] 16.0 [facility] HEMATOLOGY MCHC 31.9 g/dL 32.0 - 10/30 LOW [facility] 36.0 [facility] HEMATOLOGY MCV 74.1 fL 81.0 - 10/30 [facility] 99.0 Medical [place] HEMATOLOGY MCH 23.7 pg 27.0 - 10/30 LOW [facility] 31.0 [facility] HEMATOLOGY RDW 16.9 % 11.5 - 10/30 HI [facility] 14.5 /2012 Medical Center HEMATOLOGY PTT 28.1 s 22.9 - 10/30 Normal 25Interpretiv [facility] 35.8 /2012 e Data: [facility] Center Therapeutic Range: 57 - 92 Seconds HEMATOLOGY PT 13.7 s 12.0 - 10/30 Normal [facility] 14.7 [facility] HEMATOLOGY INR 1.03 0.85 - 10/30 Normal 22Interpretive Data: RECOMMENDED RANGES FOR PROTIME INR: [facility] 09.22 2.0-3.0 for most medical and surgical thromboembolic states. Medical 2.5-3.5 for artificial heart valves and recurrent embolism. Center INR SHOULD BE USED ONLY FOR PATIENTS ON STABLE ANTICOAGULANT THERAPY. HEMATOLOGY Segs-Bands # 7.5 K/CMM 1.5 - 8.1 10/30 Normal [facility] HEMATOLOGY Basophils 0.4 % 0.0 - 1.0 10/30 Normal [facility] HEMATOLOGY Monocytes # 1.1 K/CMM 0.0 - 0.8 10/30 [facility] [facility] HEMATOLOGY Lymphocytes # 2.1 K/CMM 1.0 - 5.5 10/30 Normal [facility] HEMATOLOGY Microcyte 1+ None Seen 10/30 ABN [facility] *ABN* Center (10/30/2012 00:20:00) HEMATOLOGY Eosinophils # 0.2 K/CMM 0.0 - 0.5 10/30 Normal [facility] HEMATOLOGY Segs 68.3 % 45.0 - 10/30 Normal [facility] 75.0 [facility] HEMATOLOGY Lymphocytes 18.9 % 20.0 - 10/30 LOW [facility] 40.0 [facility] HEMATOLOGY Monocytes 10.3 % 2.0 - 12.0 10/30 Normal [facility] HEMATOLOGY Eosinophils 2.1 % 0.0 - 4.0 10/30 Normal [facility] CHEMISTRY Magnesium Lvl 2.1 mg/dL 1.8 - 2.4 10/29 Normal [facility] CHEMISTRY Phosphorus 4.1 mg/dL 2.5 - 4.5 10/29 Normal [facility] CHEMISTRY Ca Ion mgdL 3.96 mg/dL 4.65 - 10/29 LOW [facility] 5. [facility] CHEMISTRY Ca Norm 1.01 1.16 - 10/29 LOW [place] mMol/L 1. [facility] CHEMISTRY Ca Ion 0.99 1.16 - 10/29 LOW [facility] mMol/L 1. [facility] CHEMISTRY Ca Norm mgdL 4.04 mg/dL 4.65 - 10/29 LOW [facility] 5.20 [facility] CHEMISTRY eGFR 104 10/29 NA 9Result Comment: The eGFR is calculated using the CKD-EPI formula. In most young, healthy individuals the eGFR will be > 90 mL/min/1.73m2. The eGFR declines with age. An eGFR of 60-89 may be normal in [facility] mL/min/1. some populations, particularly the elderly, for whom the CKD-EPI formula has not been extensively validated. Use of the eGFR is not recommended in the following populations: [address] Individuals with unstable creatinine concentrations, including [...] 0.7 mg/dL 0.5 - 1.4 10/29 Normal [facility] CHEMISTRY BUN 3 mg/dL 7 - 10/29 LOW [facility] CHEMISTRY Calcium Lvl 8.9 mg/dL 8.5 - 10.5 10/29 Normal [facility] CHEMISTRY Glucose Lvl 90 mg/dL 70 - 99 10/29 Normal 12Interpretive Data: Adult reference range values reflect the clinical guidelines of the [place] [employer]. [facility] CHEMISTRY Chloride Lvl 99 meq/L 95 - 109 10/29 Normal [facility] CHEMISTRY Potassium Lvl 4.4 meq/L 3.5 - 5.1 10/29 Normal [facility] CHEMISTRY CO2 27 meq/L 24 - 32 10/29 Normal [facility] CHEMISTRY Sodium Lvl 139 meq/L 135 - 145 10/29 Normal [facility] CHEMISTRY AGAP 17.4 meq/L 10.0 - 10/29 Normal [facility] 20.0 [facility] HEMATOLOGY PTT 23.7 s 22.9 - 10/29 Normal 26Interpretiv [facility] 35.8 e Data: [facility] Therapeutic Range: 57 - 92 Seconds HEMATOLOGY PT 13.4 s 12.0 - 10/29 Normal [facility] 14.7 [facility] HEMATOLOGY INR 1.00 0.85 - 10/29 Normal 23Interpretive Data: RECOMMENDED RANGES FOR PROTIME INR: [facility] 1. 2.0-3.0 for most medical and surgical thromboembolic states. Medical 2.5-3.5 for artificial heart valves and recurrent embolism. Center INR SHOULD BE USED ONLY FOR PATIENTS ON STABLE ANTICOAGULANT THERAPY. HEMATOLOGY RDW 17.1 % 11.5 - 10/29 HI [facility] 14.5 /2012 [facility] HEMATOLOGY MCH 23.8 pg 27.0 - 10/29 LOW [facility] 31.0 /2012 [facility] HEMATOLOGY MCHC 32.2 g/dL 32.0 - 10/29 Normal [facility] 36.0 /2012 [facility] HEMATOLOGY Hct 33.6 % 36.0 - 10/29 [facility] 48.0 /2012 [facility] HEMATOLOGY MCV 74.0 fL 81.0 - 10/29 LOW [facility] 99.0 /2012 [facility] HEMATOLOGY Platelet 233 K/CMM 133 - 450 10/29 Normal [facility] HEMATOLOGY MPV 9.9 fL 7.4 - 10.4 10/29 Normal [facility] HEMATOLOGY RBC 4.54 M/CMM 4.20 - 10/29 [facility] 5.40 /2012 [facility] HEMATOLOGY Hgb 10.8 g/dL 12.0 - 10/29 LOW [facility] 16.0 /2012 [facility] HEMATOLOGY WBC 9.7 K/CMM 3.7 - 10.4 10/29 Normal [facility] HEMATOLOGY Lymphocytes # 2.6 K/CMM 1.0 - 5.5 10/29 Normal [facility] HEMATOLOGY Basophils 0.7 % 0.0 - 1.0 10/29 Normal [facility] HEMATOLOGY Segs-Bands # 6.0 K/CMM 1.5 - 8.1 10/29 Normal [facility] HEMATOLOGY Monocytes # 0.7 K/CMM 0.0 - 0.8 10/29 Normal [facility] HEMATOLOGY Eosinophils # 0.3 K/CMM 0.0 - 0.5 10/29 Normal [facility] HEMATOLOGY Basophils # 0.1 K/CMM 0.0 - 0.2 10/29 Normal [facility] HEMATOLOGY Microcyte 1+ None Seen 10/29 ABN Medical *ABN* Center (10/29/2012 00:56:00) HEMATOLOGY Segs 61.5 % 45.0 - 10/29 Normal [facility] 75.0 [facility] HEMATOLOGY Lymphocytes 26.8 % 20.0 - 10/29 Normal [facility] 40.0 [facility] HEMATOLOGY Monocytes 7.6 % 2.0 - 12.0 10/29 Normal [facility] HEMATOLOGY Eosinophils 3.4 % 0.0 - 4.0 10/29 Normal [facility] CHEMISTRY Amylase Lvl 27 unit/L 25 - 115 10/28 Normal [facility] CHEMISTRY Lipase Lvl 58 unit/L 73 - 393 10/28 LOW [facility] CHEMISTRY Bili Indirect 0.2 mg/dL 0.0 - 1.0 10/28 Normal [facility] CHEMISTRY Globulin 3.4 g/dL 2.0 - 4.0 10/28 Normal [facility] CHEMISTRY A/G Ratio 0.8 0.7 - 1.6 10/28 Normal [facility] CHEMISTRY AST 24 unit/L 0 - 37 10/28 Normal [facility] CHEMISTRY Bili Total 0.3 mg/dL 0.2 - 1.3 10/28 Normal [facility] CHEMISTRY Total Protein 6.2 g/dL 6.4 - 8.4 10/28 LOW [facility] CHEMISTRY ALT 23 unit/L 0 - 65 10/28 Normal [facility] CHEMISTRY Albumin Lvl 2.8 g/dL 3.5 - 5.0 10/28 LOW [facility] CHEMISTRY Alk Phos 85 unit/L 39 - 136 10/28 Normal [facility] CHEMISTRY Bili Direct 0.1 mg/dL 0.0 - 0.3 10/28 Normal [facility] HEMATOLOGY PTT 23.9 s 22.9 - 10/28 Normal 27Interpretiv [facility] 35.8 /2012 e Data: [facility] Therapeutic Range: 57 - 92 Seconds HEMATOLOGY PT 13.5 s 12.0 - 02 Normal [facility] 14.7 [facility] HEMATOLOGY INR 1.01 0.85 - 10/28 Normal 24Interpretive Data: RECOMMENDED RANGES FOR PROTIME INR: [facility] 1.17 2.0-3.0 for most medical and surgical thromboembolic states. Medical 2.5-3.5 for artificial heart valves and recurrent embolism. Center INR SHOULD BE USED ONLY FOR PATIENTS ON STABLE ANTICOAGULANT THERAPY. VIRAL - Influ B Negative 6 Negative 10/28 Normal 6Interpretive [facility] SEROLOGY Data: Due Medical (10/27/2012 18:02:02) [...] - Influ A Negative Negative 10/28 Normal [facility] SEROLOGY /2012 Medical (10/27/2012 18:02:02) Center CHEMISTRY Vitamin D, 16 ng/mL 30 - 100 10/25 LOW 13Interpretive Data: Reference range is based on recommendations in the Endocrine [facility] 25-[place], /2012 Society Clinical Practice Guideline (J Clin Endocrinol Metab Medical 2011;96:2195-5109) Center CHEMISTRY Hgb A1C 8.4 % 10/25 [...] 87 mg/dL 0 - 129 10/25 Normal [facility] CHEMISTRY HDL 35 mg/dL >=35 10/25 Normal [facility] CHEMISTRY Trig 101 mg/dL 0 - 200 10/25 Normal [facility] CHEMISTRY Chol 142 mg/dL 120 - 200 10/25 Normal [facility] CHEMISTRY CHD Risk 4.06 3.90 - 10/25 Normal [facility] 5.80 [facility] CHEMISTRY Troponin-I 5.43 ng/mL 0.00 - 10/25 CRIT 18Result [facility] 0.40 Comment: Medical Critical Center Result(s) called to Jelani Rasmussen at 10/25/2012 00:47:48 [employer] by ISAAC. Read back OK. CHEMISTRY Troponin-T 0.693 0.000 - 10/25 CRIT 15Result [facility] ng/mL 0.100 /2012 Comment: Medical Critical Center Result(s) called to daisy otoole at 10/25/2012 01:18:09 [employer] by tac. Read back OK. HEMATOLOGY Basophils # 0.2 K/CMM 0.0 - 0.2 10/25 Normal [facility] HEMATOLOGY Plt Morph Normal 10/25 Normal Medical (10/25/2012 00:15:00) Center CHEMISTRY ALT 15 unit/L 0 - 65 10/24 Normal [facility] CHEMISTRY Albumin Lvl 2.7 g/dL 3.5 - 5.0 10/24 LOW [facility] CHEMISTRY Bili Total 0.5 mg/dL 0.2 - 1.3 10/24 Normal [facility] CHEMISTRY Alk Phos 83 unit/L 39 - 136 10/24 Normal [facility] CHEMISTRY Bili Direct 0.2 mg/dL 0.0 - 0.3 10/24 Normal [facility] CHEMISTRY Total Protein 5.8 g/dL 6.4 - 8.4 10/24 LOW [facility] CHEMISTRY AST 41 unit/L 0 - 37 10/24 HI [facility] CHEMISTRY Bili Indirect 0.3 mg/dL 0.0 - 1.0 10/24 Normal [facility] CHEMISTRY Globulin 3.1 g/dL 2.0 - 4.0 10/24 Normal [facility] CHEMISTRY A/G Ratio 0.9 0.7 - 1.6 10/24 Normal [facility] CHEMISTRY POC A Mode NC-3LPM 10/24 NA [facility] CHEMISTRY POC A HCO3 19 mMol/L 22 - 26 10/24 LOW [facility] CHEMISTRY POC A O2 Sat 98.0 % 95.0 - 10/24 Normal [facility] 100.0 [facility] CHEMISTRY POC A BE -6 mMol/L -2-2 - 2 10/24 LOW [facility] CHEMISTRY POC A PO2 103 mm[Hg] 80 - 100 10/24 HI [facility] CHEMISTRY POC A pH 7.35 7.35 - 10/24 LOW [facility] 7.45 [facility] CHEMISTRY POC A PCO2 34 mm[Hg] 35 - 45 10/24 LOW [facility] CHEMISTRY POC A Temp 37.0 Abby 10/24 NA [facility] Center CHEMISTRY POC A Source ART 10/24 NA [facility] Center CHEMISTRY Troponin-T 0.688 0.000 - 10/24 CRIT 16Result [facility] ng/mL 0.100 Comment: Medical Critical Center Result(s) called to Maribel Bustos at 10/24/2012 13:23:46 [employer] by lwb . Read back OK. CHEMISTRY Troponin-I 7.61 ng/mL 0.00 - 10/24 CRIT 19Result [facility] 0.40 Comment: Medical Critical Center Result(s) called to mariana bustos at _ 10/24/2012 13:37:22 CSTby_lss. Read back OK. CHEMISTRY Total CK 150 unit/L 12 - 10/24 Normal [facility] Center CHEMISTRY Lactic Acid 0.7 mMol/L 0.5 - 2.2 10/24 Normal [facility] Lvl Medical Center CHEMISTRY CK MB Index 11.0 0.0 - 2.5 10/24 HI [facility] Center CHEMISTRY CK MB 16.5 ng/mL 0.5 - 3.6 10/24 HI [facility] CHEMISTRY Troponin-T 0.750 0.000 - 10/24 CRIT 17Result [facility] ng/mL 0.100 Comment: Medical Critical Center Result(s) called to Lyn King at 10/24/2012 09:52:38 [employer] by lwb . Read back OK. CHEMISTRY Troponin-I 7.60 ng/mL 0.00 - 10/24 CRIT 20Result [facility] 0.40 Comment: Medical Critical Center Result(s) called to romero beltre at _10/24/2012 09:50:18 [employer] by_lss. Read back OK. CHEMISTRY Total CK 170 unit/L - 10/24 Normal 14Result Comment: Medical Specimen Center Moderately Hemolyzed. CHEMISTRY CK MB Index 10.5 0.0 - 2.5 10/24 [facility] CHEMISTRY CK MB 17.8 ng/mL 0.5 - 3.6 10/24 [facility] CHEMISTRY Ketone 0.07 <=0.27 10/24 Normal [facility] [place] Quantitative mmol/L [facility] CHEMISTRY Ketone 2.61 <=0.27 10/24 HI [facility] Quantitative mmol/L Medical Center CHEMISTRY CK MB 30.9 ng/mL 0.5 - 3.6 10/24 HI [facility] CHEMISTRY CK MB Index 12.2 0.0 - 2.5 10/24 HI [facility] CHEMISTRY Total CK 254 unit/L 12 - 191 10/24 HI [facility] CHEMISTRY Lactic Acid 0.6 mMol/L 0.5 - 2.2 10/24 Normal [facility] CHEMISTRY POC V O2 Sat 56.0 % 40.0 - 10/24 Normal [place] 70.0 Medical Center CHEMISTRY POC V HCO3 22 mmol/L 22 - 26 10/24 Normal [facility] CHEMISTRY POC V PO2 32 mm[Hg] 20 - 49 10/24 Normal [facility] CHEMISTRY POC V BE -4 mmol/L -2-2 - 2 10/24 LOW [facility] CHEMISTRY POC V PCO2 41 mm[Hg] 38 - 52 10/24 Normal [facility] CHEMISTRY POC V pH 7.33 7.28 - 10/24 Normal [facility] 7.42 Medical Center CHEMISTRY POC V Temp 37.0 Abby 10/24 NA [facility] CHEMISTRY POC V Source MARK 10/24 NA Medical Center CHEMISTRY Ketone 0.93 <=0.27 10/24 HI [facility] Quantitative mmol/L [facility] Center Microbiolog Culture: 10/24 y Urine Medical Center CHEMISTRY Lactic Acid 0.6 mMol/L 0.5 - 2.2 10/23 Normal [facility] Center Microbiolog Culture: 10/23 y Blood Medical Center CHEMISTRY POC A Source ART 10/23 NA Medical Center CHEMISTRY POC A PO2 144 mm[Hg] 80 - 100 10/23 HI [facility] CHEMISTRY POC A Temp 37.0 Abby 10/23 NA [facility] Center CHEMISTRY POC A pH 7.35 7.35 - 10/23 LOW [place] 7.45 Medical Center CHEMISTRY POC A Glu 159 mg/dL 70 - 99 10/23 [facility] CHEMISTRY POC A BE -5 mMol/L -2-2 - 2 10/23 LOW [facility] CHEMISTRY POC A O2 Sat 99.0 % 95.0 - 10/23 [facility] 100.0 [facility] CHEMISTRY POC A Hct 35.0 % 36.0 - 10/23 LOW [facility] 48.0 [facility] CHEMISTRY POC A HCO3 20 mMol/L 22 - 26 10/23 LOW [facility] CHEMISTRY POC A PCO2 36 mm[Hg] 35 - 45 10/23 Normal [facility] CHEMISTRY POC A LA 0.6 mMol/L 0.5 - 2.2 10/23 Normal [facility] CHEMISTRY POC A Ca Ion 1.20 1.16 - 10/23 [facility] mMol/L 1.30 [facility] CHEMISTRY POC A Na 133 meq/L 135 - 145 10/23 LOW [facility] CHEMISTRY POC A K 3.8 meq/L 3.5 - 5.1 10/23 Normal [facility] CHEMISTRY A/G Ratio 0.8 0.7 - 1.6 10/23 Normal [facility] CHEMISTRY AST 90 unit/L 0 - 37 10/23 HI [facility] CHEMISTRY Globulin 3.9 g/dL 2.0 - 4.0 10/23 Normal [facility] CHEMISTRY B/C Ratio 16 6 - 25 10/23 Normal [facility] CHEMISTRY Total Protein 7.2 g/dL 6.4 - 8.4 10/23 Normal [facility] CHEMISTRY Bili Total 0.5 mg/dL 0.2 - 1.3 10/23 Normal [facility] CHEMISTRY Albumin Lvl 3.3 g/dL 3.5 - 5.0 10/23 LOW [facility] CHEMISTRY Alk Phos 94 unit/L 39 - 136 10/23 Normal [facility] CHEMISTRY ALT 23 unit/L 0 - 65 10/23 Normal [facility] CHEMISTRY Osmolality 292 280 - 300 10/23 Normal [facility] mOsm/kg [facility] CHEMISTRY Myoglobin 128 ng/mL 25 - 72 10/23 [facility] Microbiolog Culture: 10/23 [facility] y [facility] Screen BACTERIAL - MRSA by PCR Positive 1, 2 10/23 ABN 2Interpretive Data: Interpretive Data: The [employer] LightCycler MRSA assay is a qualitative test for the direct detection of nasal colonization with methicillin-resistant Staphylococcus aureus (MRSA) to aid [facility] in the prevention and control of MRSA infections in healthcare settings. A positive result does not indicate an infection or require treatment. A negative result does not exclude colonization or infection. Medical *[facility]* Center The polymerase chain reaction (PCR) assay detects a proprietary sequence indicative of the integration of the SCCmec cassette into the Staphylococcus aureus chromosome, indicating the presence of MRSA D (10/23/2012 11:37:00) NA. The assay utilizes FDA cleared IVD reagents. Performance characteristics have been verified by the Molecular Diagnostic Laboratory within the [facility]. The Molecular Diagnostic Labor atory is authorized under the Clinical Laboratory Improvement Amendment of 1988 (CLIA-88) to perform high complexity testing. CHEMISTRY Osmolality 309 280 - 300 10/23 [facility] mOsm/kg [facility] CHEMISTRY POC A Hct 37.0 % 36.0 - 10/23 Normal [facility] 48.0 [facility] CHEMISTRY POC A Na 129 meq/L 135 - 145 10/23 LOW [facility] CHEMISTRY POC A LA 1.0 mMol/L 0.5 - 2.2 10/23 Normal [facility] CHEMISTRY POC A K 4.5 meq/L 3.5 - 5.1 10/23 Normal [facility] CHEMISTRY POC A Glu null 70 - 99 10[facility]23 [facility] CHEMISTRY POC A Ca Ion 1.18 1.16 - 10/23 [facility] mMol/L 1.30 [facility] CHEMISTRY POC A PCO2 30 mm[Hg] 35 - 45 10/23 CRIT [facility] CHEMISTRY POC A PO2 123 mm[Hg] 80 - 100 10/23 [facility] CHEMISTRY POC A Temp 37.0 Abby 10/23 NA [facility] CHEMISTRY POC A HCO3 14 mMol/L 22 - 26 10/23 [facility] CHEMISTRY POC A Source ART 10/23 NA [facility] CHEMISTRY POC A pH 7.27 7.35 - 10/23 [facility] 7.45 [facility] CHEMISTRY POC A BE -12 mMol/L -2-2 - 2 10/23 [facility] CHEMISTRY POC A O2 Sat 98.0 % 95.0 - 10/23 Normal [facility] 100.0 [facility] CHEMISTRY Bili Direct 0.4 mg/dL 0.0 - 0.3 10/23 HI [facility] CHEMISTRY Lipase Lvl 54 unit/L 73 - 393 10/23 LOW [facility] CHEMISTRY Amylase Lvl 28 unit/L 25 - 115 10/23 Normal [facility] CHEMISTRY B/C Ratio 10 6 - 25 10/23 Normal [facility] BLOOD BANK Antibody Scrn Negative 10/23 Normal [facility] Medical (10/23/2012 01:00:00) Center BLOOD BANK ABO/Rh A POS 10/23 Unknown [facility] URINALYSIS UA <=1.0 0.1 - 1.0 10/23 NA [facility] Urobilinogen mg/dL Medical
*NA*< Center br/>(10/23 00:01:00) <sup> </sup> URINALYSIS UA Sq Epi Moderate /LPF Few 10/23 ABN Medical *ABN* Center (10/23/2012 00:01:00) URINALYSIS UA Leuk Est Negative Negative 10/23 Normal [facility] (10/23/2012 00:01:00) Center URINALYSIS UA Nitrite Negative Negative 10/23 Normal [facility] (10/23/2012 00:01:00) Center URINALYSIS UA Blood Negative Negative 10/23 Normal [facility] (10/23/2012 00:01:00) Center URINALYSIS UA Glucose >=1000 mg/dL Negative 10/23 ABN Medical *ABN* Center (10/23/2012 00:01:00) URINALYSIS UA Protein 10 mg/dL Negative 10/23 ABN Medical *ABN* Center (10/23/2012 00:01:00) URINALYSIS UA pH 5.0 5.0 - 8.0 10/23 Normal [facility] URINALYSIS UA WBC 1 /HPF 0 - 5 10/23 Normal [facility] URINALYSIS UA Bili Negative Negative 10/23 NA Medical *NA* Center (10/23/2012 00:01:00) URINALYSIS UA Ketones >=150 mg/dL Negative 10/23 ABN Medical *ABN* Center (10/23/2012 00:01:00) URINALYSIS UA Spec Grav 1.015 <=1.030 10/23 Normal [facility] URINALYSIS UA Turbidity Clear Clear 10/23 Normal [facility] (10/23/2012 00:01:00) Center URINALYSIS UA Color Light Yellow Yellow 10/23 NA Medical *NA* Center (10/23/2012 00:01:00) BEDSIDE Gluc POC 265 mg/dL 70 - 99 10/08 [place] 1Interpretive [facility] GLUCOSE Lifms Data: Medical TESTING Center Upper Reportable Limit: 200 mg/dL. BEDSIDE Comment1 Notify 10/[address] [facility] GLUCOSE RN/MD [facility] TESTING Center BEDSIDE Comment1 Notify 10/[address] [facility] GLUCOSE RN/MD [facility] TESTING Center BEDSIDE Gluc POC 204 mg/dL 70 - 99 10/08 [place] 2Interpretive [facility] GLUCOSE Lifms Data: Medical TESTING Center Upper Reportable Limit: 200 mg/dL. CHEMISTRY Phosphorus 2.7 mg/dL 2.5 - 4.5 10/08 Normal [facility] CHEMISTRY Magnesium Lvl 1.6 mg/dL 1.8 - 2.4 10/08 LOW [facility] CHEMISTRY Ca Ion 1.17 1.16 - 02 Normal [facility] mMol/L 1. [facility] CHEMISTRY Ca Norm 1.18 1.16 - 10/08 Normal [facility] mMol/L 1. [facility] CHEMISTRY Ca Ion mgdL 4.68 mg/dL 4.65 - 02 Normal [facility] 5.20 [facility] CHEMISTRY Ca Norm mgdL 4.72 mg/dL 4.65 - 02 Normal [facility] 5.20 [facility] CHEMISTRY AGAP 17.6 meq/L 10.0 - 10/08 Normal [facility] 20.0 [facility] CHEMISTRY eGFR 109 10/08 NA 4Result Comment: The eGFR is calculated using the CKD-EPI formula. In most young, healthy individuals the eGFR will be > 90 mL/min/1.73m2. The eGFR declines with age. An eGFR of 60-89 may be normal in [facility] mL/min/1.7 some populations, particularly the elderly, for whom the CKD-EPI formula has not been extensively validated. Use of the eGFR is not recommended in the following populations: [place] [id number] Center Individuals with unstable creatinine concentrations, including [...] 24 meq/L 24 - 32 10/08 Normal [facility]2012 [facility] CHEMISTRY Calcium Lvl 8.5 mg/dL 8.5 - 10.5 10/08 Normal [facility]2012 [facility] CHEMISTRY Potassium Lvl 3.6 meq/L 3.5 - 5.1 10/08 Normal [facility]2012 [facility] CHEMISTRY Chloride Lvl 96 meq/L 95 - 109 10/[address] CHEMISTRY Creatinine 0.6 mg/dL 0.5 - 1.4 10/08 Normal [place] [facility] /2012 [facility] CHEMISTRY Sodium Lvl 134 meq/L 135 - 145 10/[address] CHEMISTRY Glucose Lvl 129 mg/dL 70 - 99 10/08 [place] 7Interpretive Data: Adult reference range values reflect the clinical guidelines of the [place] [employer]. [facility] CHEMISTRY BUN 4 mg/dL 7 - 22 10/[address] HEMATOLOGY Monocytes # 1.1 K/CMM 0.0 - 0.8 10/[address] HEMATOLOGY Eosinophils # 0.3 K/CMM 0.0 - 0.5 10/[address] HEMATOLOGY Basophils # 0.1 K/CMM 0.0 - 0.2 10/[address] HEMATOLOGY Microcyte 1+ None Seen 10/08 ABN [facility] *ABN* Center (10/08/2012 03:57:00) HEMATOLOGY Segs 55.7 % 45.0 - 02 Normal [facility] 75.0 [facility] HEMATOLOGY Lymphocytes 31.3 % 20.0 - 02/ Normal [facility] 40.0 [facility] HEMATOLOGY Monocytes 10.0 % 2.0 - 12.0 10/08 Normal [facility]2012 [facility] HEMATOLOGY Eosinophils 2.5 % 0.0 - 4.0 02/ Normal [facility] HEMATOLOGY Segs-Bands # 6.1 K/CMM 1.5 - 8.1 10/08 Normal [facility] HEMATOLOGY Basophils 0.5 % 0.0 - 1.0 / Normal [facility] HEMATOLOGY Lymphocytes # 3.4 K/CMM 1.0 - 5.5 10/08 Normal [facility] HEMATOLOGY RDW 16.9 % 11.5 - 02 HI [facility] 14.5 /2012 [facility] HEMATOLOGY Platelet 218 K/CMM 133 - 450 02 Normal [facility] HEMATOLOGY WBC 10.9 K/CMM 3.7 - 10.4 10/08 HI [facility] HEMATOLOGY RBC 4.35 M/CMM 4.20 - 10/08 [facility] 5.40 /2012 [facility] HEMATOLOGY MPV 9.7 fL 7.4 - 10.4 10/08 Normal [facility] HEMATOLOGY Hgb 10.4 g/dL 12.0 - 10/08 LOW [facility] 16.0 /2012 [facility] HEMATOLOGY Hct 32.7 % 36.0 - 02 [facility] 48.0 /2012 [facility] HEMATOLOGY MCHC 31.8 g/dL 32.0 - 02 [facility] 36.0 /2012 [facility] HEMATOLOGY MCV 75.2 fL 81.0 - 10/08 [facility] 99.0 /2012 [facility] HEMATOLOGY MCH 23.9 pg 27.0 - 10/08 [facility] 31.0 [facility] BEDSIDE Comment1 Notify 10/08 NA [facility] GLUCOSE RN/MD /2012 Medical TESTING Center BEDSIDE Gluc POC 247 mg/dL 70 - 99 10/08 [place] 3Interpretive [facility] GLUCOSE Lifscn Data: Medical TESTING Center Upper Reportable Limit: 200 mg/dL. CHEMISTRY Magnesium Lvl 2.1 mg/dL 1.8 - 2.4 10/07 Normal [facility] CHEMISTRY Ca Norm 1.16 1.16 - 02 [facility] mMol/L 1.30 [facility] CHEMISTRY Ca Ion mgdL 4.72 mg/dL 4.65 - 10/07 [facility] 5. [facility] CHEMISTRY Ca Norm mgdL 4.64 mg/dL 4.65 - 10/07 LOW [facility] 5.20 [facility] CHEMISTRY Ca Ion 1.18 1.16 - 10/07 Normal [facility] mMol/L 1.30 [facility] CHEMISTRY Phosphorus 2.6 mg/dL 2.5 - 4.5 10/07 Normal [facility] CHEMISTRY Calcium Lvl 8.1 mg/dL 8.5 - 10.5 10/07 LOW [facility] CHEMISTRY AGAP 19.4 meq/L 10.0 - 10/07 Normal [facility] [facility] 20[facility]0 [facility] CHEMISTRY eGFR 116 10/07 NA 5Result Comment: The eGFR is calculated using the CKD-EPI formula. In most young, healthy individuals the eGFR will be > 90 mL/min/1.73m2. The eGFR declines with age. An eGFR of 60-89 may be normal in [facility] mL/min/1.7 some populations, particularly the elderly, for whom the CKD-EPI formula has not been extensively validated. Use of the eGFR is not recommended in the following populations: [place] [id number] Center Individuals with unstable creatinine concentrations, including [...] 6 mg/dL 7 - 22 10/07 LOW [facility] CHEMISTRY Glucose Lvl 99 mg/dL 70 - 99 10/07 Normal 8Interpretive Data: Adult reference range values reflect the clinical guidelines of the [place] [employer]. [facility] CHEMISTRY Creatinine 0.5 mg/dL 0.5 - 1.4 10/07 Normal [facility] Lvl [facility] CHEMISTRY Potassium Lvl 3.4 meq/L 3.5 - 5.1 10/07 LOW [facility] CHEMISTRY Sodium Lvl 135 meq/L 135 - 145 10/07 Normal [facility] CHEMISTRY CO2 24 meq/L 24 - 32 10/07 Normal [facility] CHEMISTRY Chloride Lvl 95 meq/L 95 - 109 10/07 Normal [facility] HEMATOLOGY MCHC 31.8 g/dL 32.0 - 10/07 LOW [facility] 36.0 [facility] HEMATOLOGY MCH 24.1 pg 27.0 - 02 [facility] 31.0 /2012 [facility] HEMATOLOGY MCV 75.7 fL 81.0 - 02 [facility] 99.0 /2012 [facility] HEMATOLOGY Hct 31.0 % 36.0 - 02 [facility] 48.0 /2012 [facility] HEMATOLOGY Hgb 9.9 g/dL 12.0 - 02/ [facility] 16.0 /2012 [facility] HEMATOLOGY MPV 9.1 fL 7.4 - 10.4 02 Normal [facility] HEMATOLOGY Platelet 222 K/CMM 133 - 450 02 Normal [facility] HEMATOLOGY RDW 16.8 % 11.5 - 02 [facility] 14.5 /2012 [facility] HEMATOLOGY RBC 4.10 M/CMM 4.20 - 02 [facility] 5.40 /2012 [facility] HEMATOLOGY WBC 13.8 K/CMM 3.7 - 10.4 02 [facility] HEMATOLOGY Segs-Bands # 9.6 K/CMM 1.5 - 8.1 10/07 [facility] HEMATOLOGY Basophils 0.3 % 0.0 - 1.0 02 Normal [facility] HEMATOLOGY Eosinophils 1.0 % 0.0 - 4.0 10/07 [facility] HEMATOLOGY Microcyte 1+ None Seen 10/07 [facility] *ABN* Center (10/07/2012 03:25:00) HEMATOLOGY Lymphocytes # 2.9 K/CMM 1.0 - 5.5 02 [facility] HEMATOLOGY Eosinophils # 0.1 K/CMM 0.0 - 0.5 02 [facility] HEMATOLOGY Monocytes # 1.2 K/CMM 0.0 - 0.8 02 [facility] HEMATOLOGY Monocytes 8.8 % 2.0 - 12.0 10/07 [facility] HEMATOLOGY Lymphocytes 20.8 % 20.0 - 02 [facility] 40.0 [facility] HEMATOLOGY Segs 69.1 % 45.0 - 02/ Normal [facility] 75.0 [facility] URINALYSIS UA Glucose 500mg/dL 10/06 NA [facility] URINALYSIS UA <=1.0 0.1 - 1.0 10/06 NA [facility] Urobilinogen mg/dL /2012 Medical
*NA*< Center br/>(10/06 11:42:00) <sup> </sup> URINALYSIS Micro? Performed 10/06 NA [facility] *NA* Center (10/06/2012 11:42:00) URINALYSIS UA [place] Yeast Moderate /HPF None Seen 10/06 [facility] *ABN* Center (10/06/2012 11:42:00) URINALYSIS UA RBC 3 /HPF 0 - 2 10/06 HI [facility] URINALYSIS UA Bacteria Many /HPF None Seen 10/06 [facility] *ABN* [place] (10/06/2012 11:42:00) URINALYSIS UA WBC 3 /HPF 0 - 5 10/06 Normal [facility] URINALYSIS UA Leuk Est Negative Negative 10/06 Normal 2012 [facility] (10/06/2012 11:42:00) Center URINALYSIS UA Nitrite Negative Negative 10/06 Normal [facility] (10/06/2012 11:42:00) Center URINALYSIS UA Sq Epi Many /LPF Few 10/06 [facility] *ABN* [place] (10/06/2012 11:42:00) URINALYSIS UA Bili Negative Negative 10/06 [facility] *NA* Center (10/06/2012 11:42:00) URINALYSIS UA Blood Negative Negative 10/06 Normal [facility] (10/06/2012 11:42:00) Center URINALYSIS UA pH 5.5 5.0 - 8.0 10/06 Normal [facility] URINALYSIS UA Protein 20 mg/dL Negative 10/06 [facility] *ABN* Center (10/06/2012 11:42:00) URINALYSIS UA Ketones >=150 mg/dL Negative 10/06 [facility] *ABN* Center (10/06/2012 11:42:00) URINALYSIS UA Color Yellow Yellow 10/06 NA Medical *NA* Center (10/06/2012 11:42:00) URINALYSIS UA Turbidity Slight Clear 10/06 ABN Medical *ABN* Center (10/06/2012 11:42:00) URINALYSIS UA Spec Grav 1.011 <=1.030 10/06 Normal [facility] URINALYSIS UA Mucus Few /LPF None [facility] 10[facility]06 [facility] [place] (10/06/2012 11:42:00) Microbiolog Culture: 10/06 [facility] y [facility] CHEMISTRY Phosphorus 2.5 mg/dL 2.5 - 4.5 10/06 Normal [facility] CHEMISTRY Magnesium Lvl 1.5 mg/dL 1.8 - 2.4 10/06 LOW [facility] CHEMISTRY eGFR 76 10/06 NA 6Result Comment: The eGFR is calculated using the CKD-EPI formula. In most young, healthy individuals the eGFR will be > 90 mL/min/1.73m2. The eGFR declines with age. An eGFR of 60-89 may be normal in [facility] mL/min/1. some populations, particularly the elderly, for whom the CKD-EPI formula has not been extensively validated. Use of the eGFR is not recommended in the following populations: [address] Individuals with unstable creatinine concentrations, including [...] 3.9 meq/L 3.5 - 5.1 10/06 Normal [facility] CHEMISTRY Chloride Lvl 97 meq/L 95 - 109 10/06 Normal [facility] CHEMISTRY Calcium Lvl 8.3 mg/dL 8.5 - 10.5 10/06 LOW [facility] CHEMISTRY CO2 22 meq/L 24 - 32 10/06 LOW [facility] CHEMISTRY Glucose Lvl 234 mg/dL 70 - 99 10/06 HI 9Interpretive Data: Adult reference range values reflect the clinical guidelines of the [place] [employer]. [facility] CHEMISTRY Creatinine 0.9 mg/dL 0.5 - 1.4 10/06 Normal [facility] CHEMISTRY BUN 9 mg/dL 7 - 22 10/06 Normal [facility] CHEMISTRY Sodium Lvl 134 meq/L 135 - 145 10/06 LOW [facility] CHEMISTRY AGAP 18.9 meq/L 10.0 - 10/06 Normal [place] 20.0 [facility] HEMATOLOGY Segs-Bands # 13.3 K/CMM 1.5 - 8.1 10/06 [facility] HEMATOLOGY Basophils 0.2 % 0.0 - 1.0 10/06 Normal [facility] HEMATOLOGY Eosinophils 0.1 % 0.0 - 4.0 10/06 Normal [facility] HEMATOLOGY Monocytes 6.7 % 2.0 - 12.0 10/06 Normal [facility] HEMATOLOGY Segs 81.7 % 45.0 - 10/06 [facility] [place] 75.0 /2012 [facility] HEMATOLOGY Lymphocytes 11.3 % 20.0 - 10/06 [facility] [place] 40.0 /2012 [facility] HEMATOLOGY Microcyte 1+ None Seen 10/06 [facility] Medical *ABN* Center (10/06/2012 04:25:00) HEMATOLOGY Monocytes # 1.1 K/CMM 0.0 - 0.8 10/06 [facility] HEMATOLOGY Lymphocytes # 1.8 K/CMM 1.0 - 5.5 10/06 Normal [facility] HEMATOLOGY RBC 4.28 M/CMM 4.20 - 10/06 [facility] [place] 5.40 /2012 [facility] HEMATOLOGY WBC 16.3 K/CMM 3.7 - 10.4 10/06 [facility] HEMATOLOGY Hgb 10.3 g/dL 12.0 - 10/06 [facility] [place] 16.0 [facility] HEMATOLOGY Hct 32.6 % 36.0 - 10/06 [facility] [place] 48.0 /2012 [facility] HEMATOLOGY MCH 24.0 pg 27.0 - 10/06 LOW [place] 31.0 [facility] HEMATOLOGY MCV 76.1 fL 81.0 - 10/06 [facility] [place] 99.0 /2012 [facility] HEMATOLOGY MCHC 31.5 g/dL 32.0 - 10/06 [facility] [place] 36.0 [facility] HEMATOLOGY RDW 17.2 % 11.5 - 10/06 [facility] [place] 14.5 [facility] HEMATOLOGY Platelet 248 K/CMM 133 - 450 10/06 Normal [facility] HEMATOLOGY MPV 9.5 fL 7.4 - 10.4 10/06 Normal [facility] CHEMISTRY Ca Norm 1.07 1.16 - 10/05 LOW [facility] mMol/L 1. [facility] CHEMISTRY Ca Ion mgdL 4.36 mg/dL 4.65 - 10/05 LOW [facility] 5. [facility] CHEMISTRY Ca Norm mgdL 4.28 mg/dL 4.65 - 10/05 LOW [facility] 5. [facility] CHEMISTRY Ca Ion 1.09 1.16 - 10/05 LOW [facility] mMol/L 1. [facility] HEMATOLOGY Basophils # 0.1 K/CMM 0.0 - 0.2 10/05 Normal [facility] HEMATOLOGY Eosinophils # 0.1 K/CMM 0.0 - 0.5 10/05 Normal [facility] CHEMISTRY U Preg Negative Negative 10/03 Normal [facility] (10/03/2012 06:31:00) [place] BLOOD BANK ABO/Rh A POS 10/03 Unknown [facility] BLOOD BANK Antibody Scrn Negative 10/03 Normal [facility] Medical (10/03/2012 06:00:00) Center CHEMISTRY Total Protein 7.8 g/dL 6.4 - 8.4 09/23 Normal [facility] CHEMISTRY AST 31 unit/L 0 - 37 09/23 Normal [facility] CHEMISTRY Bili Total 0.3 mg/dL 0.2 - 1.3 09/23 Normal [facility] CHEMISTRY ALT 50 unit/L 0 - 65 09/23 Normal [facility] CHEMISTRY Albumin Lvl 3.6 g/dL 3.5 - 5.0 09/23 Normal [facility] CHEMISTRY Alk Phos 150 unit/L 39 - 136 09/23 [facility] CHEMISTRY B/C Ratio 21 6 - 25 09/23 Normal [facility] CHEMISTRY Globulin 4.2 g/dL 2.0 - 4.0 09/23 [facility] CHEMISTRY A/G Ratio 0.9 0.7 - 1.6 09/23 Normal [facility] HEMATOLOGY Hypochrom Slight None Seen 09/23 Normal Medical (09/23/2012 12:35:00) Center HEMATOLOGY Elliptocyte Slight None Seen 09/23 [facility]N [facility] *ABN* Center (09/23/2012 12:35:00) HEMATOLOGY Basophils # 0.1 K/CMM 0.0 - 0.2 09/23 Normal [facility] HEMATOLOGY Plt Morph Normal 09/23 Normal [facility] (09/23/2012 12:35:00) Center URINALYSIS UA <=1.0 0.1 - 1.0 09/23 NA [facility] Urobilinogen mg/dL Medical
*NA*< Center br/>(09/23 12:35:00) <sup> </sup> URINALYSIS UA Nitrite Negative Negative 09/23 Normal [facility] (09/23/2012 12:35:00) [place] URINALYSIS UA Blood Negative Negative 09/23 Normal [facility] (09/23/2012 12:35:00) Center URINALYSIS UA Leuk Est Negative Negative 09/23 Normal [facility] (09/23/2012 12:35:00) Center URINALYSIS Micro? Not Indicated 09/23 [facility] *NA* [place] (09/23/2012 12:35:00) URINALYSIS UA Ketones Negative mg/dL Negative 09/23 [facility] *NA* [place] (09/23/2012 12:35:00) URINALYSIS UA Bili Negative Negative 09/23 [facility] *NA* [place] (09/23/2012 12:35:00) URINALYSIS UA Protein Negative mg/dL Negative 09/23 Normal [facility] (09/23/2012 12:35:00) Center URINALYSIS UA pH 5.0 5.0 - 8.0 09/23 Normal [facility] Center URINALYSIS UA Glucose Negative mg/dL Negative 09/23 [facility] *NA* [place] (09/23/2012 12:35:00) URINALYSIS UA Color Light Yellow Yellow 09/23 NA Medical *NA* [place] (09/23/2012 12:35:00) URINALYSIS UA Spec Grav 1.004 <=1.030 09/23 Normal [facility] URINALYSIS UA Turbidity Clear Clear 01/18 Normal Medical (09/23/2012 12:35:00) Center BEDSIDE Gluc POC 153 mg/dL 70 - 99 06/28 HI 1Interpretive [facility] GLUCOSE Lifsc Data: Medical TESTING Center Upper Reportable Limit: 200 mg/dL. CHEMISTRY U Preg Negative Negative 06/28 Normal Medical (06/28/2012 07:27:00) Center Vital Signs Vital Sign Value Date Comments Source Systolic (mm Hg) 124 08/13/2013 [facility] Respitory Rate 18 08/13/2013 [facility] Temperature Oral (F) 98.8 F 08/13/2013 [facility] Heart Rate 102 08/13/2013 [facility] Diastolic (mm Hg) 46 08/13/2013 [facility] Systolic (mm Hg) 107 08/13/2013 [facility] Respitory Rate 18 08/13/2013 [facility] Diastolic (mm Hg) 63 08/13/2013 [facility] Heart Rate 103 08/13/2013 [facility] Heart Rate 105 08/13/2013 [facility] Respitory Rate 18 08/13/2013 [facility] Systolic (mm Hg) 117 08/13/2013 [facility] Diastolic (mm Hg) 70 08/13/2013 [facility] Weight 81.818 08/13/2013 [facility] Height 162.56 cm 08/13/2013 [facility] Temperature Oral (F) 98.4 F 08/13/2013 [facility] Diastolic (mm Hg) 61 07/15/2013 [facility] Temperature Oral (F) 97.7 F 07/15/2013 [facility] Systolic (mm Hg) 117 07/15/2013 [facility] Respitory Rate 18 07/15/2013 [facility] Heart Rate 90 07/15/2013 [facility] Respitory Rate 18 07/14/2013 [facility] Heart Rate 104 07/14/2013 [facility] Diastolic (mm Hg) 46 07/14/2013 [facility] Systolic (mm Hg) 91 07/14/2013 [facility] Diastolic (mm Hg) 61 07/14/2013 [facility] Systolic (mm Hg) 95 07/14/2013 [facility] Respitory Rate 18 07/14/2013 [facility] Heart Rate 120 07/14/2013 [facility] Temperature Oral (F) 97.5 F 07/14/2013 [facility] Temperature Oral (F) 97.6 F 07/14/2013 [facility] Height 162.56 cm 07/12/2013 [facility] Weight 86.364 07/12/2013 [facility] Temperature Oral (F) 97.1 F 04/03/2013 [facility] Respitory Rate 18 04/03/2013 [facility] Heart Rate 79 04/03/2013 [facility] Diastolic (mm Hg) 66 04/03/2013 [facility] Systolic (mm Hg) 94 04/03/2013 [facility] Diastolic (mm Hg) 28 04/03/2013 [facility] Systolic (mm Hg) 116 04/03/2013 [facility] Respitory Rate 20 04/03/2013 [facility] Heart Rate 100 04/03/2013 [facility] Temperature Oral (F) 97.0 F 04/03/2013 [facility] Height 162.56 cm 04/03/2013 [facility] Weight 90 04/03/2013 [facility] Height 162.56 cm 04/02/2013 [facility] Weight 90 04/02/2013 [facility] Systolic (mm Hg) 132 03/09/2013 [facility] Diastolic (mm Hg) 72 03/09/2013 [facility] Heart Rate 114 03/09/2013 [facility] Temperature Oral (F) 97.7 F 03/09/2013 [facility] Respitory Rate 20 03/09/2013 [facility] Temperature Oral (F) 97.7 F 03/09/2013 [facility] Heart Rate 108 03/09/2013 [facility] Systolic (mm Hg) 143 03/09/2013 [facility] Respitory Rate 18 03/09/2013 [facility] Diastolic (mm Hg) 81 03/09/2013 [facility] Heart Rate 115 03/09/2013 [facility] Diastolic (mm Hg) 70 03/09/2013 [facility] Systolic (mm Hg) 153 03/09/2013 [facility] Respitory Rate 18 03/09/2013 [facility] Temperature Oral (F) 97.5 F 03/09/2013 [facility] Weight 90 03/07/2013 [facility] Height 162.56 cm 03/07/2013 [facility] Height 162.56 cm 03/06/2013 [facility] Weight 90 03/06/2013 [facility] Systolic (mm Hg) 127 12/07/2012 [facility] Diastolic (mm Hg) 49 12/07/2012 [facility] Heart Rate 90 12/07/2012 [facility] Temperature Oral (F) 98.3 F 12/07/2012 [facility] Respitory Rate 18 12/07/2012 [facility] Systolic (mm Hg) 104 12/07/2012 [facility] Temperature Oral (F) 98.6 F 12/07/2012 [facility] Respitory Rate 18 12/07/2012 [facility] Heart Rate 78 12/07/2012 [facility] Diastolic (mm Hg) 57 12/07/2012 [facility] Heart Rate 89 12/07/2012 [facility] Temperature Oral (F) 97.6 F 12/07/2012 [facility] Respitory Rate 18 12/07/2012 [facility] Systolic (mm Hg) 105 12/07/2012 [facility] Diastolic (mm Hg) 51 12/07/2012 [facility] Weight 100 11/29/2012 [facility] Height 162.56 cm 11/29/2012 [facility] Weight 100.568 11/29/2012 [facility] Height 162.56 cm 11/29/2012 [facility] Weight 101.364 11/28/2012 [facility] Height 162.56 cm 11/28/2012 [facility] Diastolic (mm Hg) 55 11/17/2012 [facility] Systolic (mm Hg) 117 11/17/2012 [facility] Diastolic (mm Hg) 70 11/17/2012 [facility] Systolic (mm Hg) 118 11/17/2012 [facility] Diastolic (mm Hg) 61 11/17/2012 [facility] Systolic (mm Hg) 154 11/17/2012 [facility] Temperature Oral (F) 97.8 F 11/17/2012 [facility] Temperature Oral (F) 97.9 F 11/17/2012 [facility] Temperature Oral (F) 98.6 F 11/17/2012 [facility] Height 162.56 cm 11/17/2012 [facility] Weight 103.21 11/17/2012 [facility] Respitory Rate 18 11/17/2012 [facility] Height 162.56 cm 11/16/2012 [facility] Weight 100 11/16/2012 [facility] Diastolic (mm Hg) 58 11/14/2012 [facility] Systolic (mm Hg) 121 11/14/2012 [facility] Respitory Rate 20 11/14/2012 [facility] Heart Rate 84 11/14/2012 [facility] Temperature Oral (F) 98.0 F 11/14/2012 [facility] Respitory Rate 20 11/14/2012 [facility] Systolic (mm Hg) 103 11/14/2012 [facility] Diastolic (mm Hg) 54 11/14/2012 [facility] Temperature Oral (F) 98.0 F 11/14/2012 [facility] Heart Rate 83 11/14/2012 [facility] Diastolic (mm Hg) 68 11/14/2012 [facility] Respitory Rate 20 11/14/2012 [facility] Heart Rate 79 11/14/2012 [facility] Systolic (mm Hg) 136 11/14/2012 [facility] Temperature Oral (F) 98.4 F 11/14/2012 [facility] Height 162.56 cm 11/06/2012 [facility] Weight 100 11/06/2012 [facility] Height 162.56 cm 11/06/2012 [facility] Weight 100 11/06/2012 [facility] Height 162.56 cm 11/06/2012 [facility] Weight 104.545 11/06/2012 [facility] Systolic (mm Hg) 131 11/01/2012 [facility] Diastolic (mm Hg) 62 11/01/2012 [facility] Systolic (mm Hg) 125 11/01/2012 [facility] Diastolic (mm Hg) 62 11/01/2012 [facility] Systolic (mm Hg) 155 10/31/2012 [facility] Diastolic (mm Hg) 54 10/31/2012 [facility] Temperature Oral (F) 99.7 F 10/31/2012 [facility] Temperature Oral (F) 96.7 F 10/31/2012 [facility] Temperature Oral (F) 98.1 F 10/31/2012 [facility] Respitory Rate 19 10/31/2012 [facility] Respitory Rate 19 10/31/2012 [facility] Respitory Rate 19 10/31/2012 [facility] Weight 78.2 10/24/2012 [facility] Heart Rate 126 10/23/2012 [facility] Heart Rate 130 10/23/2012 [facility] Weight 113.636 10/23/2012 [facility] Height 162.56 cm 10/23/2012 [facility] Heart Rate 119 10/23/2012 [facility] Height 162.56 cm 10/23/2012 [facility] Systolic (mm Hg) 123 10/08/2012 [facility] Respitory Rate 19 10/08/2012 [facility] Diastolic (mm Hg) 51 10/08/2012 [facility] Heart Rate 81 10/08/2012 [facility] Temperature Oral (F) 98.8 F 10/08/2012 [facility] Diastolic (mm Hg) 55 10/08/2012 [facility] Respitory Rate 20 10/08/2012 [facility] Systolic (mm Hg) 136 10/08/2012 [facility] Heart Rate 82 10/08/2012 [facility] Temperature Oral (F) 98.9 F 10/08/2012 [facility] Diastolic (mm Hg) 47 10/08/2012 [facility] Systolic (mm Hg) 107 10/08/2012 [facility] Temperature Oral (F) 98.1 F 10/08/2012 [facility] Respitory Rate 18 10/08/2012 [facility] Heart Rate 75 10/08/2012 [facility] Weight 118.200 10/03/2012 [facility] Height 162.56 cm 10/03/2012 [facility] Weight 118.182 09/23/2012 [facility] Height 162.56 cm 09/23/2012 [facility] Diastolic (mm Hg) 57 06/28/2012 [facility] Heart Rate 104 06/28/2012 [facility] Respitory Rate 18 06/28/2012 [facility] Systolic (mm Hg) 147 06/28/2012 [facility] Systolic (mm Hg) 153 06/28/2012 [facility] Diastolic (mm Hg) 61 06/28/2012 [facility] Respitory Rate 16 06/28/2012 [facility] Systolic (mm Hg) 136 06/28/2012 [facility] Diastolic (mm Hg) 52 06/28/2012 [facility] Respitory Rate 18 06/28/2012 [facility] Temperature Oral (F) 98.5 F 06/28/2012 [facility] Heart Rate 104 06/28/2012 [facility] Weight 118.182 06/14/2012 [facility] Height 162.56 cm 06/14/2012 [facility] Encounters Location Location Encounter Encounter Reason Attending ADM DC Status Source Details Type Number For Visit Provider Date Date [facility] DS [id number] DSU/ WOLFGANG 06/28 Active [facility] Medical REFLUX SUSHILA /2011 [facility] Inpatient [id number] WOLFGANG 10/03 10/08 Active [facility] SUSHILA /2012 [facility] Inpatient [id number] N/V DARELL 10/23 11/01 Active [facility] DEHYDRATI SDRINGOLA- /2012 [facility] Inpatient [id number] LAVONE 11/05 11/14 Active [facility] ROSE /2012 [facility] OU [id number] CHIP 11/16 11/17 Active [facility] MARKUS /2012 [facility] Inpatient [id number] JUAN J 11/29 12/07 Active [facility] BRANDO /2012 [facility] OU [id number] SANJUANA 03/07 03/09 Active [facility] OSUAGWU /2012 [facility] OU [id number] JEANNIE 04/02 04/03 Active [facility] ADOLFO /2012 [facility] OU [id number] GASTROPAR JEANNIE 07/12 07/14 Active [facility] ESIS ADOLFO /2012 [facility] JACKIE [id number] WOLFGANG 07/26 07/27 Active [facility] SUSHILA /2012 [facility] Emergency [id number] KATELYN 08/13 08/13 Active Formerly [facility] BUBLEWICZ /2012 [facility] Outpatient [id number] SERGO WHITFIELD Cancel [facility] Procedures Procedure Code Date Perfomer Comments Source section [id number] [facility] Cholecystectomy [id number] [facility] <sup>1</sup> [facility] Hand repair [id number], x'2 [facility] <sup>2</sup> [facility] Tonsillectomy [id number] [facility] <sup>3</sup> [facility] Bypass of stomach [id number] [facility] Rotator cuff repair [id number] [facility] Heart procedure [id number] 1cardiac [facility] <sup>1</sup> stent for [facility]
--- OUTSIDE RECORDS SUMMARY | 2018-04-29 15:47 | XMS REPORT | CCD ---
:1965 Author Organization [facility] Care Team Providers Name Role Phone Sukhwinder Renteria Referring Provider Allergies, Adverse Reactions, Alerts Substance Reaction Status NKDA Active Problem List Condition Effective Dates Status Acid reflux Resolved Anemia Resolved Anxiety Resolved Arthritis Resolved Depression Resolved Diabetes mellitus type 1 Resolved Edema of lower extremity Resolved Fibromyalgia Resolved Hyperlipidemia Resolved Hypertension Resolved Medications Medication Instructions Start Date End Date Status [place] 325 mg-10 mg / 15 mL, Route: [...] Duration: 30 day, Stop date: 11/02/12 10:59:00 [place] 325 mg-10 mg / 30 mL, Route: PO, 10/04/2012 10/05/2012 Discontinued 15 mL oral solution Drug Form: SOLN, Dosing Weight 118.2, kg, Q4H, PRN Pain Score 6-10, Start date: 10/04/12 17:20:00, Duration: 30 day, Stop date: 11/03/12 17:19:00 [place] 325 mg-10 mg / 15 mL, Route: [...] 14:28:00, PRN Blood Glucose Results Blistex Lip [place] Route: TOP, Dosing 10/06/2012 10/06/2012 Deleted Weight [...] /LPF] Few /LPF *NA* (10/06/2012 11:42:00) UA [place] Yeast [None Seen /HPF] Moderate /HPF *ABN* [...] values reflect the clinical guidelines of the [place] Diabetes [employer].8Interpretive Data: Adult reference range values reflect the clinical guidelines of the [place] Diabetes [employer].9Interpretive Data: Adult reference range values reflect the clinical guidelines of the [place] [employer].HEMATOLOGY Most recent to oldest 1 [...] Catch FREE TEXT SOURCE: FINAL REPORTS Final Ohpsbm07,000 - 50,000 CFU/mL Enterococcus SpeciesPRELIMINARY REPORTS Preliminary Uofibt73,000 - 50,000 CFU/ mL Enterococcus Species ; Sensitivity PendingSUSCEPTIBILITY REPORT ENTERO Antibiotic INTERP. VDIL Ampicillin S Levofloxacin S Nitrofurantoin S Tetracycline R Vancomycin S Procedures Procedures Date Related Diagnosis section Cholecystectomy 1 Hand repair 2 Tonsillectomy 3 , [id number]
--- OUTSIDE RECORDS SUMMARY | 2018-04-29 15:47 | XMS REPORT | CCD ---
:1965 Author Organization [facility] Care Team Providers Name Role Phone Sukhwinder [...]
--- OUTSIDE RECORDS SUMMARY | 2018-04-29 15:48 | XMS REPORT | CCD ---
:1965 Author Organization [facility] Care Team Providers Name Role [...] Hypertension Resolved MRSA1, 2 10/23/2012 Active 1nares 10/23/201274151Qnppgxw added by Discern Expert. Medications Medication Instructions [...] Duration: 30 day, Stop date: 12/06/12 1:48:00 [place] 5/325 oral tablet 1 tab, PO, Q6H, [...] Duration: 30 day, Stop date: 12/08/12 10:44:00 [place] 5/325 oral tablet 1 tab, Route: PO, [...] INJ, Q2H, Dosing Weight 100, kg, Total bskg=6784 mg, Start date: 11/14/12 8:00:00, Duration: 2 [...] 11/08/2012 11/08/2012 Canceled PO, Drug form: TAB, [id number], Dosing Weight 100, kg, Start date: 11/08/12 [...] [Negative] Negative 1 (11/12/2012 21:54:26) 1Interpretive Data: [employer] Clostridium difficile assay utilizes loop-mediated isothermalDNA amplification (LAMP) technology to detect a 204 bp region of the tcdA gene within the PaLoc genesegment present in all known toxigenic C. difficile strains. The assay utilizes FDA cleared IVD reagents. Performance characteristics have been verified by the Molecular Diagnostic Laboratory within the [facility]. The Molecular Diagnostic Laboratory is authorized [...] values reflect the clinical guidelines of the [place] [employer].10Interpretive Data: Adult reference range values reflect the clinical guidelines of the [place] [employer].11Result Comment: rechecked Critical Result (s) called leslie Conner Rose at 11/12/2012 02:56:37 LIFE SKILLS CONSULTANT by_mgm. Read back OK.12Interpretive Data: Adult reference range values reflect the clinical guidelines of the [place] [employer].13Result Comment: Critical Result(s) called to [...] 10.0 240 Poor Control, take action to yuymv12Hspmav Comment : Critical Result(s) called leslie Rose [...] Catch FREE TEXT SOURCE: FINAL REPORTS Final Vslavp25,000 - 100,000 CFU/mL Enterococcus SpeciesPRELIMINARY REPORTS Preliminary Tqrggx26,000 - 100,000 CFU/ mL Enterococcus Species Identification And Sensitivity PendingSUSCEPTIBILITY REPORT ENTERO Antibiotic INTERP. VDIL Ampicillin S Levofloxacin S Nitrofurantoin S Tetracycline R Vancomycin S
--- OUTSIDE RECORDS SUMMARY | 2018-04-29 15:48 | XMS REPORT | CCD ---
:1965 Author Organization [facility] Care Team Providers Name Role Phone Nikhil Hager Consulting Provider Sukhwinder Renteria Consulting Provider Allergies, Adverse Reactions, Alerts Substance Reaction Status NKDA Active Problem List Condition Effective Dates Status Acid reflux Resolved Anemia Resolved Anxiety Resolved Arthritis Resolved Depression Resolved Diabetes mellitus type 1 Resolved Edema of lower extremity Resolved Fibromyalgia Resolved Hyperlipidemia Resolved Hypertension Resolved MRSA1, 2 10/23/2012 Active 1nares 10/23/201249177Wqntzus added by Discern Expert. Medications Medication Instructions [...] mg, 1 supp, 10/23/2012 11/01/2012 Discontinued Route: AL, Drug form: SUPP, Q6H, Dosing Weight 113.636, kg, PRN Fever, Start date: 10/23/12 0:37:00, Duration: 30 day, Stop date: 11/22/12 0:36:00 Visipaque 320mg/ml 126 mL, Route: IVP, Drug Form: SOLN, Dosing Weight 113.636 , kg, ONCALL, STAT, Start date: 10/23/12 16:52:00, Duration: 1 doses or times, Dose=2.2ml/kg, Max wubu=724eo -- "To be infused by Radiology Staff ONLY" 10/2310/23/2012 Completed Dose=2.2ml/kg, Max pntb=507cw -- "To be infused by Radiology Staff [...] mg, 1 supp, 10/24/2012 10/24/2012 Deleted Route: AL, Drug form: SUPP, ONCE, Dosing Weight 78.2, [...] Duration: 1 doses or times, Dose=2.2ml/kg, Max edjk=529tj -- "To be infused by Radiology Staff ONLY" 10/2310/23/2012 Completed Dose=2.2ml/kg, Max aikh=037kf -- "To be infused by Radiology Staff [...] by the Molecular Diagnostic Laboratory within the [facility]. The Molecular Diagnostic Laboratory is [...] values reflect the clinical guidelines of the [place] Diabetes [employer].11Interpretive Data: Adult reference range values reflect the clinical guidelines of the [place] Diabetes [employer].12Interpretive Data: Adult reference range values reflect the clinical guidelines of the [place] Diabetes [employer].13Interpretive Data: Reference range is based on recommendations in the Endocrine Society Clinical Practice Guideline (J Clin Endocrinol Metab 2011;96:1765-2889)14Result Comment: Specimen Moderately Hemolyzed.15Result Comment: Critical Result(s) called to daisy otoole at 10/25/2012 01:18:09 INCLUSION SPECIAL EDUCATOR by tac. Read back OK.16Result Comment: Critical Result(s) called to Maribel Bustos at 10/24/2012 13:23:46 INCLUSION SPECIAL EDUCATOR by lwb . Readback OK.17Result Comment: Critical Result(s) called to Lyn King at 10/24/2012 09:52:38 INCLUSION SPECIAL EDUCATOR by lwb . Read back OK.18Result Comment: Critical Result(s) called to Jelani Rasmussen at 10/25/2012 00: 47:48 INCLUSION SPECIAL EDUCATOR by RM. Read back OK.19Result Comment: Critical Result(s) called to mariana bustos at _ 10/24/2012 13:37:22 CSTby_lss. Readback OK.20Result Comment : Critical Result(s) called to romero beltre at _10/24/2012 09:50:18 INCLUSION SPECIAL EDUCATOR by_lss. Read back OK.21Interpretive Data: HbA1C% eAG(mg/dL) [...] Data: Heparin Therapeutic Range: 57 - 92 Xuojlow03Orddydivzcpl Data: Heparin Therapeutic Range: 57 - 92 Lnxaxpz03Bpyovhmicung Data: Heparin Therapeutic Range: 57 - 92 Seconds Microbiology Reports PROCEDURE:Culture: Urine STATUS: Auth (Verified) BODY SITE: COLLECTED DATE/TIME: 10/23/2012 20:33:00 SOURCE: Urine,Straight Cath FREE TEXT SOURCE: FINAL REPORTS Final Stgpet54,000 - 100,000 CFU/mL Gram Negative Rods , Lactose Fermenters , 2 [place] Types 50,000 - 100,000 CFU/mL Enterococcus Species [...]
--- OUTSIDE RECORDS SUMMARY | 2018-04-29 15:49 | XMS REPORT | CCD ---
:1965 Author Organization [facility] Care Team Providers Name Role Phone Emeli Clark Consulting Provider Allergies, Adverse Reactions, Alerts Substance Reaction Status NKDA Active Problem List Condition Effective Dates Status Acid reflux Resolved Anemia Resolved Anxiety Resolved Arthritis Resolved Depression Resolved Diabetes mellitus type 1 Resolved Edema of lower extremity Resolved Fibromyalgia Resolved Hyperlipidemia Resolved Hypertension Resolved MRSA1, 2 10/23/2012 Active 1nares 10/23/201213405Curfskq added by Discern Expert. Medications Medication Instructions [...] 1 doses or times, Dose= 2.2ml/kg, Max stvq=113hj -- "To be infused by Radiology Staff ONLY" 201211/16/2012 Discontinued Dose=2.2ml/kg, Max zhmb=977es -- "To be infused by Radiology Staff ONLY" calcium gluconate + Sodium 2,000 mg, 20 mL, Route: 11/17/2012 11/17/2012 Completed Chloride 0.9% IV 80 mL IVPB, ONCE, Dosing Weight 103.21, kg, Start date: 11/17/12 11:02:00, Stop date: 11/17/12 11:02:00 enoxaparin 40 mg, 0.4 mL, Route: 11/16/2012 11/17/2012 Discontinued SUB-Q, Drug form: INJ, ventF17R, Dosing Weight 100, kg, Start date: 11/16/12 [...] date: 11/16/12 13:40:00, Stop date: 11/16/12 13:40:00 Abbott 5/325 oral tablet 1 tab, Route: PO, [...] values reflect the clinical guidelines of the [place] Diabetes Association.7Interpretive Data: Adult reference range values reflect the clinical guidelines of the [place] Diabetes Association.HEMATOLOGY Most recent to oldest [Reference [...]
--- OUTSIDE RECORDS SUMMARY | 2018-04-29 15:49 | XMS REPORT | CCD ---
:1965 Author Organization [facility] Care Team Providers Name Role Phone Marcela [...] 10/23/2012 Active Neuropathy Resolved - Nares - Ngxaj2ppnxk 10/23/201214623Teqrxof added by Discern Expert. Medications Medication Instructions [...] IVPB, Drug 12/02/2012 12/02/2012 Discontinued form: PDR/INJ, [id number], Dosing Weight 100, kg, Start date: 12/02/12 [...] 11/29/2012 11/29/2012 Discontinued SUB-Q, Drug form: INJ, mtbnH95X, Dosing Weight 101.364, kg, Start date: 11/29/12 [...] mg, 1 supp, Route: 12/04/2012 12/07/2012 Discontinued IA, Drug form: SUPP, Q4H, Dosing Weight 100, [...] date: 12/04/12 23:39:00, Stop date: 12/04/12 23:39:00 [place] 7.5/325 oral tablet 1 tab, Route: PO, [...] IVPB, Drug 11/29/2012 12/01/2012 Discontinued form: PDR/INJ, [id number], Dosing Weight 100, kg, Start date: 11/29/12 [...] 7:47:00 Phenergan 25 mg rectal 1 supp, IA, Q6H, PRN, 9 11/29/2012 Ordered suppository supp, [...] 1Result Comment: "Significant Findings called to Eun Parehk at 1328 2012 by ss.Read Back OK."2Interpretive [...] by the Molecular Diagnostic Laboratory within the [facility]. The Molecular Diagnostic Laboratory is authorized under [...] values reflect the clinical guidelines of the [place] Diabetes Association.11Interpretive Data: Adult reference range values reflect the clinical guidelines of the [place] Diabetes Association.12Interpretive Data: Adult reference range values reflect the clinical guidelines of the [place] Diabetes Association.13Interpretive Data: No established reference ranges.14Interpretive [...] Data: Heparin Therapeutic Range: 57 - 92 Bvsdkpe25Btmxehqidstq Data: Heparin Therapeutic Range: 57 - 92 [...] Catch FREE TEXT SOURCE: FINAL REPORTS Final Ooiech33,000 - 50,000 CFU/mL Yeast <10,000 CFU/mL Skin EsPRELIMINARY REPORTS Preliminary ReportNo Growth; Holding Procedures Procedures Date Related Diagnosis Heart procedure 1 1cardiac stent for [place]
--- OUTSIDE RECORDS SUMMARY | 2018-04-29 15:50 | XMS REPORT | CCD ---
:1965 Author Organization [facility] Care Team Providers Name Role Phone JohnbeckiReno rossi Consulting Provider Carlos Hanley Consulting Provider Allergies, Adverse Reactions, Alerts Substance Reaction Status NKDA Active Problem List Condition Effective Dates Status Acid reflux Resolved Anemia Resolved Anxiety Resolved Arthritis Resolved Depression Resolved Diabetes mellitus type 1 Resolved Edema of lower extremity Resolved Fibromyalgia Resolved Gastric ulcer Resolved Hyperlipidemia Resolved Hypertension Resolved [place] - Myocardial infarction 10/22/2012 Resolved MRSA1, 2, 3, 4 10/23/2012 Active Neuropathy Resolved - Nares/ - Kvwgd2futpi 10/23/201204029Cteplcd added by Discern Expert. Medications Medication Instructions [...] 03/08/13 3:17:00, Stop date: 03/08/13 3:17:00 lidocaine-epi 1%-1:095432 1 ml, Route: SUB-Q, Drug 03/07/2013 03/07/2013 [...] Results BEDSIDE GLUCOSE TESTING Most recent to [facility] 1 2 3 [Reference Range]: Gluc [...] Reportable Limit: 200 mg/dL.URINALYSIS Most recent to [facility] [Reference Range]: 1 2 3 UA [...] the clinical guidelines of the [place] Diabetes Association.8Interpretive Data: Adult reference range values reflect the clinical guidelines of the [place] Diabetes Association.9Interpretive Data: Adult reference range values reflect the clinical guidelines of the [place] Diabetes Association.HEMATOLOGY Most recent to oldest 1 [...]
[2018-04-29] MEDS ORDERED: NA CHLORIDE 0.9% 1,000 ML ONE (15:51)
[2018-04-29] MEDS ORDERED: KETOROLAC 30 MG/ML INJ ONE (15:51)
--- OUTSIDE RECORDS SUMMARY | 2018-04-29 15:51 | XMS REPORT ---
:[address] [facility] Address [address] [place] [address] [address] [place] [address] Care Team Providers Name Role Phone MILO [...] (BEAKER) (test 200 mg/dL 70-110 TESTED AT [facility] [address] [facility] phqe=[id number]) [facility] [address] [id number] 12:24:00 Test Item Value Reference Range Comments SODIUM (BEAKER) (test jxqv=168) 136 meq/L 136-145 POTASSIUM (BEAKER) (test bsoh=051) 5.4 meq/L 3.5-5.1 CHLORIDE (BEAKER) (test vteo=392) 102 meq/L 98-107 CO2 (BEAKER) (test gxrw=218) 25 meq/L 22-29 [id number] 12:24:00 Test Item Value Reference Range Comments GLUCOSE RANDOM (BEAKER) (test pgsi=424) 353 mg/dL 70-105 BUN AND [id number] 12:24:00 Test Item Value Reference Range Comments BLOOD UREA NITROGEN 14 mg/dL 7-21 (BEAKER) (test ortm=065) CREATININE (BEAKER) (test 1.08 mg/dL 0.57-1.25 funy=526) EGFR (BEAKER) (test 53 mL/min/1.73 sq m ESTIMATED GFR IS NOT gxdf=7097) ACCURATE CREATININE CLEARANCE IN PREDICTING GLOMERULAR FILTRATION RATE. ESTIMATED GFR IS NOT APPLICABLE FOR DIALYSIS PATIENTS. POCT-HEMOGLOBIN [id number] 11:43:00 Test Item Value Reference Range Comments POC-HEMOGLOBIN METER 12.1 g/dL 12.0-15.[address]ED [address] ([facility]) (test vuuh=0661) [facility] [address] POCT-GLUCOSE [id number] 11:43:00 Test Item Value Reference Range Comments POC-GLUCOSE METER ([facility]) 320 mg/dL 70-110 Verify with Lab draw/TESTED AT (test qryr=1087) [address] [address]
--- OUTSIDE RECORDS SUMMARY | 2018-04-29 15:51 | XMS REPORT | CCD ---
:1965 Author Organization [facility] Care Team Providers Name Role Phone Alberto Mata Jace Consulting Provider Allergies, Adverse Reactions, Alerts Substance Reaction Status NKDA Active Problem List Condition Effective Dates Status Acid reflux Resolved Anemia Resolved Anxiety Resolved Arthritis Resolved Depression Resolved Diabetes mellitus type 1 Resolved Edema of lower extremity Resolved Fibromyalgia Resolved Gastric ulcer Resolved Hyperlipidemia Resolved Hypertension Resolved [place] - Myocardial infarction 10/22/2012 Resolved MRSA1, 2, 3, 4 10/23/2012 Active Neuropathy Resolved - Nares - Pkiik9asgtb 10/23/201226525Iigygvf added by Discern Expert. Medications Medication Instructions [...] values reflect the clinical guidelines of the [place] Diabetes Association.7Interpretive Data: Adult reference range values reflect the clinical guidelines of the [place] Diabetes Association.HEMATOLOGY Most recent to oldest [Reference [...]
--- OUTSIDE RECORDS SUMMARY | 2018-04-29 15:51 | XMS REPORT | CCD ---
:[address] [facility] Care Team Providers Name Role Phone Robert Wooten Consulting Provider Allergies, Adverse Reactions, Alerts Substance Reaction Status NKDA Active Problem List Condition Effective Dates Status Acid reflux Resolved Anemia Resolved Anxiety Resolved Arthritis Resolved Depression Resolved Diabetes mellitus type 1 Resolved Edema of lower extremity Resolved Fibromyalgia Resolved Gastric ulcer Resolved Hyperlipidemia Resolved Hypertension Resolved [place] - Myocardial infarction 10/22/2012 Resolved MRSA1, 2, 3, 4 10/23/2012 Active Neuropathy Resolved - Nares - Djnze3mltxr 10/23/201275656Rdusjwj added by Discern Expert. Medications Medication Instructions [...] values reflect the clinical guidelines of the [place] Diabetes Association.HEMATOLOGY Most recent to oldest [Reference [...]
--- OUTSIDE RECORDS SUMMARY | 2018-04-29 15:51 | XMS REPORT | CCD ---
:1965 Author Organization [facility] Care Team Providers Name Role Phone Sukhwinder Renteria Referring Provider Allergies, Adverse Reactions, Alerts Substance Reaction Status NKDA Active Problem List Condition Effective Dates Status Acid reflux Resolved Anemia Resolved Anxiety Resolved Arthritis Resolved Depression Resolved Diabetes mellitus type 1 Resolved Edema of lower extremity Resolved Fibromyalgia Resolved Gastric ulcer Resolved Hyperlipidemia Resolved Hypertension Resolved [place] - Myocardial infarction 10/22/2012 Resolved MRSA1, 2, 3, 4 10/23/2012 Active Neuropathy Resolved - Nares - Lsdgf1ohjfv 10/23/201256819Flqmcov added by Discern Expert. Medications Medication Instructions [...]
--- OUTSIDE RECORDS SUMMARY | 2018-04-29 15:51 | XMS REPORT | CCD ---
:1965 Author Organization [facility] Care Team Providers Name Role Phone Alberto Matavor Consulting Provider Allergies, Adverse Reactions, Alerts Substance Reaction Status NKDA Active Problem List Condition Effective Dates Status Acid reflux Resolved Anemia Resolved Anxiety Resolved Arthritis Resolved Depression Resolved Diabetes mellitus type 1 Resolved Edema of lower extremity Resolved Fibromyalgia Resolved Gastric ulcer Resolved Hyperlipidemia Resolved Hypertension Resolved [place] - Myocardial infarction 10/22/2012 Resolved MRSA1, 2, 3, 4 10/23/2012 Active Neuropathy Resolved - Nares - Zkzwb8cfzji 10/23/201202460Qcgbtij added by Discern Expert. Medications Medication Instructions Start Date End Date Status acetaminophen-hydrocod 1 tab, Route: PO, Drug Form: 07/12/2013 07/14/2013 Discontinued one 325 mg-5 mg oral TAB, Dosing Weight 86.364, tablet kg, Q4H, PRN Pain, Start date: 07/12/13 18:23:00, Duration: 30 day, Stop date: 08/11/13 18:22:00(Same as: [place] 325/5) Do not exceed 4gm/day of acetaminophen. [...] 1 doses or times, Dose =2.2ml/kg, Max hoca=135bf -- "To be infused by Radiology Staff ONLY" 201207/12/2013 Completed Dose=2.2ml/kg, Max ozjf=111lg -- "To be infused by Radiology Staff [...] day, Stop date: 08/11/13 9:00:00(Same as: Lopressor) [place] 5/325 oral 1 tab, Route: PO, Dosing [...] date: 08/11/13 9:00:00(Same as: Mag-Ox 400)Magnesium oxide 428sv=619dx elemental magnesiumDose=____mg magnesium oxide (___mg elemental magnesium) [...] [Negative] Negative 1 (07/13/2013 00:00:59) 1Interpretive Data: [employer] illumigene Clostridium difficile assay utilizes loop-mediated isothermalDNA amplification (LAMP) technology to detect a 204 bp region of the tcdA gene within the PaLoc genesegment present in all known toxigenic C. difficile strains. The assay utilizes FDA cleared IVD reagents. Performance characteristics have been verified by the Molecular Diagnostic Laboratory within the [facility]. The Molecular Diagnostic Laboratory is authorized [...] /LPF] Many /LPF *ABN* (07/12/2013 03:00:00) UA [place] Yeast [None Seen /HPF] Moderate /HPF *ABN* [...] values reflect the clinical guidelines of the [place] Diabetes Association.9Interpretive Data: Adult reference range values reflect the clinical guidelines of the [place] Diabetes Association.10Interpretive Data: Adult reference range values reflect the clinical guidelines of the [place] Diabetes Association.HEMATOLOGY Most recent to oldest [Reference [...] to oldest [Reference Range]: 1 2 3 [place]-HIV 1/2 Ab [Negative] Negative *NA* (07/14/2013 00:27:00) [place]-Hep C Ab [Negative] Negative *NA* (07/14/2013 00:27:00) CDC-HIV 1/2 Ab [Negative] Negative *NA* (07/12/2013 16:02:06)
[2018-04-29 16:18] LABS: Absolute Lymphocytes (CBC) 3.2 K/uL (0.7-4.9); Absolute Monocytes 0.9 K/uL (0.1-1.3); Absolute Neutrophil 6.6 K/uL (1.8-8.0); Basophils % 0.9 % (0-1.3); Eosinophils % 3.1 % (0-4.4); Lymphocytes % 28.3 % (15.3-44.8); MCH 26.7 pg (27.0-35.0); MCV 79.7 fL (80-100); MPV 8.9 fL (7.6-11.3); Monocytes % 8.1 % (3.3-12.3); RBC Red Blood Cell Count 4.51 M/uL (3.86-4.86)
[2018-04-29 16:48] LABS: Albumin 3.6 g/dL (3.4-5.0); Bilirubin Direct 0.1 mg/dL (0-0.2); Bilirubin Total 0.3 mg/dL (0.2-1.0); CKMB Creatine Kinase MB 2.5 ng/mL (0.3-3.6); Magnesium 2.2 mg/dL (1.8-2.4); Potassium 4.1 mmol/L (3.5-5.1); Protein, Total 7.4 g/dL (6.4-8.2)
[2018-04-29 17:11] LABS: Urine Blood NEGATIVE (NEG); Urine Glucose 3+ (NEG); Urine Protein NEGATIVE (NEG); Urine Specific Gravity 1.005 (1.005-1.030)
--- NOTE | 2018-04-29 17:52 | RAD REPORT ---
EXAM DESCRIPTION: RAD - Chest Single View - 04/29/2018 4:34 pm CLINICAL HISTORY: right lower rib pain from fall 3 weeks ago Chest pain. COMPARISON: Chest Single View dated 12/19/2017; Chest Single View dated 12/12/2017; Chest Single View d ated 03/06/2017; Chest Single View dated 03/06/2017 FINDINGS: Portable technique limits examination quality. The lungs are grossly clear. The heart is normal in size. No displaced fractures. IMPRESSION: No acute intrathoracic process suspected.
--- NOTE | 2018-04-29 17:52 | RAD REPORT ---
EXAM DESCRIPTION: RAD - Ribs Right - 04/29/2018 4:34 pm CLINICAL HISTORY: fall 3 weeks ago;Pain COMPARISON: Chest Single View dated 04/29/2018 FINDINGS: A displaced rib fracture is not identified. No pneumothorax is evident.
--- NOTE | 2018-04-29 17:57 | ER ---
Nurse's Notes [facility] Name: Ila Pérez Age: 52 yrs Sex: Female : 1965 Arrival Date: 04/29/2018 Time: 14:45 Bed 24 Private MD: Fabián Guerra E Diagnosis: Other chest pain-Right Lower Ribs;Diabetes mellitus due to underlying condition with hyperglycemia Presentation: 04/29 14:56 Presenting complaint: Patient states: shakiness, weakness x 1 week. Hand cramping sv started yesterday. lucia rib pain after a fall about 3 weeks, after tripping. Transition of care: patient was not received from another setting of care. Onset of symptoms was April 2018. Care prior to arrival: None. 14:56 Method Of Arrival: Ambulatory sv 14:56 Acuity: DEVONTE 3 sv 18:18 Risk Assessment: Do you want to hurt yourself or someone else? Patient reports no mg2 desire to harm self or others. Initial Sepsis Screen: Does the patient meet any 2 criteria? No. Patient's initial sepsis screen is negative. Does the patient have a suspected source of infection? No. Patient's initial sepsis screen is negative. Historical: - Allergies: 14:59 Gluten Protein; sv - PMHx: 14:59 Anxiety; Hypertension; Diabetes - IDDM; Arthritis; Chronic pain; raynaud's; sv Fibromyalgia; Depression; Myocardial infarction; Esophagitis; gastroporeisis; GERD; heart disease; neuropathy; High Cholesterol; sleep disorder; Tachycardia; - PSHx: 14:59 ; Gastric Bypass; cataract sx; Carpal Tunnel Repair; Cholecystectomy; sv Tonsillectomy; Knee surgery; rotator cuff; trigger finger release; - Immunization history:: Adult Immunizations up to date. - Social history:: Smoking status: Patient uses tobacco products, smokes one-half pack cigarettes per day. - Ebola Screening: : No symptoms or risks identified at this time. Screenin:11 Abuse screen: Denies threats or abuse. Denies injuries from another. Nutritional mg2 screening: No deficits noted. Tuberculosis screening: No symptoms or risk factors identified. Fall Risk Fall in past 12 months (25 points). Assessment: 15:11 General: Appears uncomfortable, Behavior is calm, cooperative. Pain: Complains of pain mg2 in right rib cage and right upper thigh Pain does not radiate. Pain at worst was 10 out of 10 on a pain scale. Quality of pain is described as aching, Pain began gradually, Is intermittent, Aggravated by increased activity, repositioning. Neuro: Level of Consciousness is awake, alert, obeys commands, Oriented to person, place, time, situation. Cardiovascular: Capillary refill < 3 seconds Patient's skin is warm and dry. Respiratory: Airway is patent Respiratory effort is even, unlabored, Respiratory pattern is regular, symmetrical. GI: Abdomen is non-distended. : No signs and/or symptoms were reported regarding the genitourinary system. EENT: No signs and/or symptoms were reported regarding the EENT system. Derm: Skin is intact, Skin is pink, warm \T\ dry. normal. Musculoskeletal: Circulation, motion, and sensation intact. Reports pain in right rib cage and right upper thigh. 16:11 Reassessment: Patient appears in no apparent distress at this time. Patient and/or mg2 family updated on plan of care and expected duration. Pain level reassessed. Patient is alert, oriented x 3, equal unlabored respirations, skin warm/dry/pink. patient sent to xray. Vital Signs: 15:00 BP 146 / 76; Pulse 114; Resp 20; Temp 98.6; Pulse Ox 98% ; Weight 90.72 kg; Height 5 sv ft. 4 in. (162.56 cm); Pain 7/10; 15:15 BP 147 / 66; Pulse 107; Resp 18; Pulse Ox 98% on R/A; Pain 10/10; mg2 17:00 BP 151 / 84 RA (auto/reg); Pulse 95; Resp 18 S; Pulse Ox 97% on R/A; Pain 7/10; jp3 15:00 Body Mass Index 34.33 (90.72 kg, 162.56 cm) sv ED Course: 14:45 Patient arrived in ED. sb2 14:47 Fabián Guerra MD is Private Physician. sb2 14:58 Triage completed. sv 15:00 Arm band placed on left wrist. sv 15:01 Isael Morse, MARTÍNEZ is Primary Nurse. mg2 15:11 Russel Aguirre PA is PHCP. cp 15:11 Fabián Coates MD is Attending Physician. cp 15:14 Patient has correct armband on for positive identification. Bed in low position. Call mg2 light in reach. Side rails up X 1. Door closed. Pillow given. 15:41 Note: MOWING MACHINE OPERATOR WAS STARTING IV AND COLLECTING LABS. STATED HE WOULD CALL 1149 WHEN PT IS [facility] READY. 15:50 Missed attempt(s): 22 gauge in left forearm. jp3 16:09 Inserted saline lock: 24 gauge in left hand, using aseptic technique. Blood collected. mg2 by preformer impregnated fabrics Maurilio. 16:13 Basic Metabolic Panel Sent. jp3 16:13 CBC with Diff Sent. jp3 16:13 Ckmb Sent. jp3 16:13 LFT's Sent. jp3 16:13 Magnesium Sent. jp3 16:13 Troponin (emerg Dept Use Only) Sent. jp3 16:15 Patient moved to radiology via wheelchair. 1 16:28 X-ray completed. Patient tolerated procedure well. Patient moved back from radiology. mh1 16:34 XRAY Ribs RIGHT In Process Unspecified. EDMS 16:34 XRAY Chest (1 view) In Process Unspecified. EDMS 16:37 EKG done, by radiation / chemistry technician. sm3 17:14 Notified Nurse Practitioner and/or Physician Disabilities Caregiver of patient reported pain level jp3 had not subsided. 17:51 Fabián Guerra MD is Referral Physician. cp 18:00 Diet: Patient given ice chips. Patient given water. jp3 18:17 No provider procedures requiring assistance completed. IV discontinued, intact, mg2 bleeding controlled, No redness/swelling at site. Pressure dressing applied. Administered Medications: 16:07 Drug: TORadol 30 mg Route: IVP; Site: left hand; mg2 16:07 Drug: NS 0.9% 500 ml Route: IV; Rate: bolus; Site: left hand; mg2 16:59 Drug: NS 0.9% 1000 ml Route: IV; Rate: 100 ml/hr; Site: left hand; mg2 Outcome: 17:56 Discharge ordered by MD. cp 18:17 Discharged to home via wheelchair. mg2 18:17 Condition: stable 18:17 Discharge instructions given to patient, Instructed on discharge instructions, follow up and referral plans. medication usage, Demonstrated understanding of instructions, follow-up care, medications, Prescriptions given X 2. 18:18 Patient left the ED. mg2 Signatures: Dispatcher [employer] Joie Mclain RN RN Sandra Moon mh1 Russel Aguirre PA PA cp Stephenie Canela sb2 Isael Morse, RN RN mg2 Alina Santacruz sm3 Quoc Sandy jp3
--- NOTE | 2018-04-29 17:57 | EDPHYS ---
Physician Documentation [facility] Name: Ila Pérez Age: 52 yrs Sex: Female : 1965 Arrival Date: 04/29/2018 Time: 14:45 Bed 24 Private MD: Fabián Guerra E ED Physician Fabián Coates HPI: 04/29 15:40 This 52 yrs old Female presents to ER via Ambulatory with complaints of cp CRAMPING ALL OVER, SHAKINESS. 15:40 shakiness, generalized cramping, right lower rib pain since fall 3 weeks ago, general cp weakness. Severity of symptoms: in the emergency department the symptoms are unchanged despite home interventions. Historical: - Allergies: 14:59 Gluten Protein; sv - PMHx: 14:59 Anxiety; Hypertension; Diabetes - IDDM; Arthritis; Chronic pain; raynaud's; sv Fibromyalgia; Depression; Myocardial infarction; Esophagitis; gastroporeisis; GERD; heart disease; neuropathy; High Cholesterol; sleep disorder; Tachycardia; - PSHx: 14:59 ; Gastric Bypass; cataract sx; Carpal Tunnel Repair; Cholecystectomy; sv Tonsillectomy; Knee surgery; rotator cuff; trigger finger release; - Immunization history:: Adult Immunizations up to date. - Social history:: Smoking status: Patient uses tobacco products, smokes one-half pack cigarettes per day. - Ebola Screening: : No symptoms or risks identified at this time. ROS: 15:45 Constitutional: Negative for body aches, chills, fever, poor PO intake. cp 15:45 Eyes: Negative for injury, pain, redness, and discharge. cp 15:45 ENT: Negative for drainage from ear(s), ear pain, sore throat, difficulty swallowing, difficulty handling secretions. 15:45 Cardiovascular: Positive for right lower rib pain, Negative for edema, palpitations. 15:45 Respiratory: Negative for cough, shortness of breath, wheezing. 15:45 Abdomen/GI: Negative for abdominal pain, nausea, vomiting, and diarrhea, black/tarry stool, rectal bleeding. 15:45 Back: Negative for pain at rest, pain with movement, radiated pain. 15:45 : Negative for urinary symptoms. 15:45 Skin: Negative for cellulitis, rash. 15:45 Neuro: Positive for weakness, Negative for altered mental status, dizziness, headache, loss of consciousness, syncope, near syncope. 15:45 All other systems are negative. Exam: 15:50 ECG was reviewed by the Attending Physician. cp 15:50 Constitutional: The patient appears in no acute distress, alert, awake, cp non-diaphoretic, non-toxic, well developed, well nourished. 15:50 Head/Face: Normocephalic, atraumatic. cp 15:50 Eyes: Periorbital structures: appear normal, Pupils: equal, round, and reactive to light and accomodation, Extraocular movements: intact throughout, Conjunctiva: normal, no exudate, no injection, Sclera: no appreciated abnormality, Lids and lashes: appear normal, bilaterally. 15:50 ENT: External ear(s): are unremarkable, Ear canal(s): are normal, clear, TM's: bulging, is not appreciated, bilaterally, erythema, is not appreciated, bilaterally, Nose: is normal, Mouth: is normal, Posterior pharynx: is normal, airway is patent, no erythema, no exudate, Voice: is normal. 15:50 Neck: ROM/movement: is normal, is supple, without pain, no range of motions limitations, no nuchal rigidity. 15:50 Chest/axilla: Inspection: normal, Palpation: crepitus, is not appreciated, tenderness, that is moderate, of the right lower lateral rib area. 15:50 Cardiovascular: Rate: tachycardic, Rhythm: regular, Pulses: Pulses are 2+ in right radial artery and left radial artery. Edema: is not appreciated, JVD: is not appreciated. 15:50 Respiratory: the patient does not display signs of respiratory distress, Respirations: normal, no use of accessory muscles, no retractions, no splinting, no tachypnea, labored breathing, is not present. 15:50 Abdomen/GI: Inspection: abdomen appears normal, Bowel sounds: active, all quadrants, Palpation: soft, in all quadrants, mild abdominal tenderness, in the right upper quadrant, rebound tenderness, is not appreciated, involuntary guarding, is not appreciated. 15:50 Back: pain, is absent, ROM is normal, vertebral tenderness, is not appreciated. 15:50 Musculoskeletal/extremity: Exam is negative for bony tenderness, calf tenderness, decreased range of motion, deformity, injury. 15:50 Skin: cellulitis, is not appreciated, no rash present. 15:50 Neuro: Orientation: to person, place \T\ time. Mentation: lucid, able to follow commands, Cerebellar function: is grossly normal, Motor: moves all fours, strength is normal, Sensation: no obvious gross deficits. Vital Signs: 15:00 BP 146 / 76; Pulse 114; Resp 20; Temp 98.6; Pulse Ox 98% ; Weight 90.72 kg; Height 5 sv ft. 4 in. (162.56 cm); Pain 7/10; 15:15 BP 147 / 66; Pulse 107; Resp 18; Pulse Ox 98% on R/A; Pain 10/10; mg2 17:00 BP 151 / 84 RA (auto/reg); Pulse 95; Resp 18 S; Pulse Ox 97% on R/A; Pain 7/10; jp3 15:00 Body Mass Index 34.33 (90.72 kg, 162.56 cm) sv MDM: 15:11 Patient medically screened. cp 16:00 Differential Diagnosis electrolyte abnormality, cardiac arrythmia, dehydration, DKA, cp rib fracture. 17:55 Data reviewed: vital signs, nurses notes, lab test result(s), EKG, radiologic studies, cp plain films, and as a result, I will discharge patient. 17:55 Test interpretation: by ED physician or midlevel provider: ECG, plain radiologic cp studies. Counseling: I had a detailed discussion with the patient and/or guardian regarding: the historical points, exam findings, and any diagnostic results supporting the discharge/admit diagnosis, lab results, radiology results, the need for outpatient follow up, a family practitioner, to return to the emergency department if symptoms worsen or persist or if there are any questions or concerns that arise at home. Response to treatment: the patient's symptoms have mildly improved after treatment, and as a result, I will discharge patient. 04/29 15:35 Order name: Basic Metabolic Panel; Complete Time: 17:11 cp 04/29 17:11 Interpretation: Normal except: NA 123; CL 88; GLUC 244; BUN 19; GFR 43. cp 04/29 15:35 Order name: CBC with Diff; Complete Time: 17:11 cp 04/29 17:11 Interpretation: Normal except: WBC 11.2; MCV 79.7; MCH 26.7. cp 04/29 15:35 Order name: Ckmb; Complete Time: 17:11 cp 08/24 15:35 Order name: LFT's; Complete Time: 17:11 cp /24 17:11 Interpretation: Normal except: GLOB 3.8; A/G 0.9. cp 08/24 15:35 Order name: Magnesium; Complete Time: 17:11 cp 08/24 15:35 Order name: Troponin (emerg Dept Use Only); Complete Time: 17:11 cp 04/29 15:35 Order name: EKG; Complete Time: 15:35 cp 04/29 15:35 Order name: XRAY Ribs RIGHT; Complete Time: 17:58 cp 24 17:58 Interpretation: Report reviewed. cp 04/29 15:35 Order name: XRAY Chest (1 view); Complete Time: 17:58 cp 04/29 17:58 Interpretation: Report review. cp 04/29 16:59 Order name: Urine Dipstick--Ancillary (enter results); Complete Time: 17:33 mb4 04/29 17:36 Interpretation: Normal except: UGLUC 3+. cp 04/29 16:59 Order name: Urine --Ancillary (enter results); Complete Time: 17:33 mb4 04/29 15:35 Order name: Urine Test (obtain specimen); Complete Time: 16:45 cp 04/29 15:35 Order name: Cardiac monitoring; Complete Time: 16:09 cp 04/29 15:35 Order name: EKG - Nurse/Tech; Complete Time: 16:14 cp 04/29 15:35 Order name: IV Saline Lock; Complete Time: 16:14 cp 04/29 15:35 Order name: Labs collected and sent; Complete Time: 16:09 cp 24 15:35 Order name: O2 Per Protocol; Complete Time: 15:51 cp 24 15:35 Order name: O2 Sat Monitoring; Complete Time: 15:51 cp 04/29 15:35 Order name: Urine Dipstick-Ancillary (obtain specimen); Complete Time: 16:45 cp EC:50 Rate is 105 beats/min. Rhythm is regular. VT interval is normal. QRS interval is cp normal. QT interval is normal. T waves are Inverted in lead III. Interpreted by me. Reviewed by me. Administered Medications: 16:07 Drug: TORadol 30 mg Route: IVP; Site: left hand; mg2 16:07 Drug: NS 0.9% 500 ml Route: IV; Rate: bolus; Site: left hand; mg2 16:59 Drug: NS 0.9% 1000 ml Route: IV; Rate: 100 ml/hr; Site: left hand; mg2 Disposition: 04/30 08:27 Co-signature as Attending Physician, Fabián Coates MD I agree with the assessment and wa plan of care. Disposition: 04/29/18 17:56 Discharged to Home. Impression: Other chest pain - Right Lower Ribs, Diabetes mellitus due to underlying condition with hyperglycemia. - Condition is Stable. - Discharge Instructions: Rib Contusion, Blood Glucose Monitoring, Adult, Diabetes Mellitus and Food. - Prescriptions for Naprosyn 500 mg Oral Tablet - take 1 tablet by ORAL route 2 times per day take with food; 20 tablet. Tramadol 50 mg Oral Tablet - take 1 tablet by ORAL route every 8 hours as needed; 12 tablet. - Medication Reconciliation Form, Thank You Letter, Antibiotic Education, Prescription Opioid Use form. - Follow up: Fabián Guerra MD; When: 2 - 3 days; Reason: Recheck today's complaints. - Problem is new. - Symptoms have improved. Signatures: Dispatcher [employer] Joie Mclain RN RN Russel Gordon PA PA cp Fabián Coates MD MD nh Isael Morse RN RN mg2 Corrections: (The following items were deleted from the chart) 04/29 18:18 17:56 04/29/2018 17:56 Discharged to Home. Impression: Other chest pain - Right Lower mg2 Ribs; Diabetes mellitus due to underlying condition with hyperglycemia. Condition is Stable. Forms are Medication Reconciliation Form, Thank You Letter, Antibiotic Education, Prescription Opioid Use. Follow up: Fabián Guerra; When: 2 - 3 days; Reason: Recheck today's complaints. Problem is new. Symptoms have improved. cp
[2018-04-29 18:25] VITALS: TEMP 98.6
[2018-04-29 18:28] VITALS: BP 151/84; O2SAT 97
--- NOTE | 2018-04-30 08:33 | EKG ---
Test Date: 2018-04-29 Test Time: 15:42:05 Crimping Machine Operator: OTILIO MEASUREMENT RESULTS: Intervals: Rate: 105 OH: 132 QRSD: 80 QT: 326 QTc: 430 Gray: P: 77 OH: 132 QRS: 55 T: 38 INTERPRETIVE STATEMENTS: Sinus tachycardia Otherwise normal ECG Compared to ECG 04/15/2018 19:57:21 Sinus rhythm no longer present Myocardial infarct finding no longer present Electronically Signed On 04-30-18 08:32:47 CDT by Cassius Perea
== END 2018-04-29 18:18 | disposition home or self-care (01) ==
LOC: ER 14:43
DX: R07.89 Other chest pain (principal); E11.65 Type 2 diabetes mellitus with hyperglycemia; Z91.81 History of falling; I10 Essential (primary) hypertension; G89.29 Other chronic pain; M19.90 Unspecified osteoarthritis, unspecified site; I73.00 Raynaud's syndrome without gangrene; M79.7 Fibromyalgia; F32.9 Major depressive disorder, single episode, unspecified; K21.9 Gastro-esophageal reflux disease without esophagitis; E11.40 Type 2 diabetes mellitus with diabetic neuropathy, unspecified; E78.00 Pure hypercholesterolemia, unspecified; F17.210 Nicotine dependence, cigarettes, uncomplicated
CPT/HCPCS: 36415; 71045; 71100; 80048; 80076; 81003; 81025; 82553; 83735; 84484; 85025; 93005; 96374; 99284; J7030

== ENCOUNTER 2018-05-22 23:27 | Emergency (ER) | payer MEDICARE ==
--- OUTSIDE RECORDS SUMMARY | 2018-05-22 23:29 | XMS REPORT | Clinical Summary ---
:1965 Author Organization [facility] Address [address] [place] [address] Phone Care Team Providers Name Role Phone [...] 06/24/2017 Anesthesia Event Sly Malloy MD after 05/21/2017 Social History Tobacco Use Types Packs/Day Years [...] Trigger finger of left CDT thumb after 05/21/2017 Results POC-Glucose meter (06/25/2017 2:32 PM)Only the most recent of2 resultswithin the time period is included. Component Value Ref Range POC-Glucose Meter 200 (H)Comment: TESTED AT [address] 70 - 110 mg/[place] [address] Specimen Performing Laboratory Blood [facility] [address] [address] ECG 12 lead (06/25/2017 1:04 PM) Specimen Performing Laboratory GE MUSE Narrative Ventricular Rate 76 BPM Atrial Rate 76 BPM P-R Interval 156 ms QRS Duration 86 ms Q-T Interval 382 ms QTC Calculation(Bazett) 429 ms P [place] 7 degrees R [place] 59 degrees T [place] 28 degrees Normal sinus rhythm Normal ECG No previous ECGs available Confirmed by MD NASSAR CHUNG-SHIN ([id number]) on 07/06/2017 10:28:29 AM Procedure Note Interface, External Ris In - 07/06/2017 10:28 AM CDT Ventricular Rate 76 BPM Atrial Rate 76 BPM P-R Interval 156 ms QRS Duration 86 ms Q-T Interval 382 ms QTC Calculation(Bazett) 429 ms P [place] 7 degrees R [place] 59 degrees T [place] 28 degrees Normal sinus rhythm Normal ECG [...] Specimen Performing Laboratory Blood - Arm, [address] [address] Glucose (06/25/2017 11:38 AM) Component Value Ref Range Glucose 353 (H) 70 - 105 mg/dL Specimen Performing Laboratory Blood - Arm, [address] [address] Electrolytes (06/25/2017 11:38 AM) Component Value Ref Range Sodium 136 136 - 145 meq/L Potassium 5.4 (H) 3.5 - 5.1 meq/L Chloride 102 98 - 107 meq/L CO2 25 22 - 29 meq/L Specimen Performing Laboratory Blood - Arm, [address] [address] POC-Hemoglobin meter (06/25/2017 11:34 AM) Component Value Ref Range POC-Hemoglobin Meter 12.1Comment: TESTED AT [address] 12.0 - 15.0 g/ dL [facility] [address] Specimen Performing Laboratory Blood [address] [address] POCT , urine (06/25/2017 10:56 AM) Component Value Ref Range Test Urine, POC Negative Control line present?, POC Yes Background clear?, POC Yes UPT Cassette Lot #, POC [id number] UPT Cassette Expiration Date, POC 11/03/18 Specimen Performing Laboratory Urine after 05/21/2017
[2018-05-23] MEDS ORDERED: HYDROCODONE/APAP 5/325 MG TAB ONE (00:16)
--- OUTSIDE RECORDS SUMMARY | 2018-05-23 00:28 | XMS REPORT | Continuity of Care Document ---
:1965 Author Organization Interface Problems Problem Status Onset Classification Date Comments Source Date Reported PAIN IN Active 08/13/20 [facility] ABDOMEN/NAUSEA/TI Medical [facility] Center BDDC/GASTROESOPHA Active 07/24/20 [facility] GEAL REFLUX [address] [place] [address] DISEASE Center VOMITING Active 07/11/[address] GASTROPARESIS Active 07/11/[address] CHEST PAIN Active 04/02/[address] Center R/O ACS Active 04/02/[address] HYPERGLYCEMIA Active 03/06/20 [facility] DEHYDRATION [address] [place] [address] GASTROPARESIS Center SOB/CHEST PAIN Active 03/06/[address] NASEAU Active 01/11/[address] N/V Active 11/29/[address] VOMITTING, Active 11/29/19 [facility] DIABETIC, HEART [address] [place] [address] PT Center NAUSEA, VOMITTING Active 11/17/[address] ACS R/O AND Active 11/17/19 [facility] PERSISTANT N/V [address] [place] [address] MRSA<sup>1, Active 10/23/19 Problem 11/19/2012 2Problem [facility] </sup><sup>2</sup 13 added by Medical > Discern Center Expert. MRSA<sup>1, 2, 3, Active 10/23/19 Problem 08/15/2013 4Problem [facility] 4</sup> 13 added by Medical Discern Center Expert. MRSA<sup>1, Active 10/23/19 Problem 04/05/2013 4Problem [facility] </sup><sup>2, 13 added by Medical </sup><sup>3, Discern Center </sup><sup>4</sup Expert. > N/V DEHYDRATION Active 10/22/[address] OR - Myocardial Resolved 10/22/19 Problem 08/15/2013 [facility] infarction [address] [place] [address] OR - Myocardial Resolved 10/22/19 Problem 04/05/2013 [facility] infarction [address] [place] [address] DSU/ REFLUX Active 06/13/[address] MORBID OBESITY Active 01/19/[address] Acid reflux Resolved Problem 04/05/2013 [facility] Anemia Resolved Problem 04/05/2013 [facility] Anxiety Resolved Problem 04/05/2013 [facility] Arthritis Resolved Problem 04/05/2013 [facility] Depression Resolved Problem 04/05/2013 [facility] Diabetes mellitus Resolved Problem 04/05/[address] Edema of lower Resolved Problem 04/05/2013 [facility] Fibromyalgia Resolved Problem 04/05/2013 [facility] Hyperlipidemia Resolved Problem 04/05/2013 [facility] Hypertension Resolved Problem 04/05/2013 [facility] Acid reflux Resolved Problem 08/15/2013 [facility] Anemia Resolved Problem 08/15/2013 [facility] Anxiety Resolved Problem 08/15/2013 [facility] Arthritis Resolved Problem 08/15/2013 [facility] Depression Resolved Problem 08/15/2013 [facility] Diabetes mellitus Resolved Problem 08/15/[address] Edema of lower Resolved Problem 08/15/2013 [facility] Fibromyalgia Resolved Problem 08/15/2013 [facility] Gastric ulcer Resolved Problem 08/15/2013 [facility] Hyperlipidemia Resolved Problem 08/15/2013 [facility] Hypertension Resolved Problem 08/15/2013 [facility] Neuropathy Resolved Problem 08/15/2013 [facility] Gastric ulcer Resolved Problem 04/05/2013 [facility] Neuropathy Resolved Problem 04/05/2013 [facility] MORBID OBESITY Active [facility] CHEST PAIN NOS Active [facility] NAUSEA WITH Active [facility] VOMITING [facility] OTHER GENERAL Active [facility] Medications Medication Details Route Status Patient Ordering Order Source Instructions Provider Date Zofran 4 mg 4 mg=1 tab, PO, Active De [facility] Gar[facility] oral tablet BID, # 10 tab, 0 2012 Medical Refill(s) Center Reglan 10 mg 10 mg=1 tab, PO, Active [facility] 08/13[facility] oral tablet QID, # 40 tab, 0 2012 Medical Refill(s) Center IDS med 5 mg, 1 mL, Inactive Ruggiero [facility] Rate: 30 ml/hr, 2012 Medical Infuse [...] mg, 1 mL, Inactive De [facility] Gar[facility] Route: IVPB, 2012 Medical Drug form: INJ, Center ONCE, Dosing Weight 81.818, kg, Priority: STAT, Start date: 08/13/13 13:17:00, Stop date: 08/13/13 13:17:00Do not give IV push. (Same as: Phenergan) Zofran 4 mg, 2 mL, Inactive [facility] [place] Gar[facility] Route: IVP, Drug 2012 Medical form: INJ, ONCE, Center Dosing Weight 81.818, kg, Priority: STAT, Start date: 08/13/13 12:41:00, Stop date: 08/13/13 12:41:00(Same as: Zofran) morphine 4 mg, 1 mL, Inactive De [place] Gar[facility] Sulfate Route: IVP, Drug 2012 Medical [...] 10 mg 10 mg, 1 tab, Inactive [facility] oral tablet Route: PO, Drug 2012 Medical form: TAB, Center TID-Before Meals, Dosing Weight 86.364, kg, Start date: 07/14/13 11:30:00, Duration: 30 day, Stop date: 08/13/13 7:30:00(Same as: Reglan) Take 30 min before meals Levemir 15 unit, 0.15 No Longer [facility] mL, Route: Active 2012 Medical SUB-Q, Drug Center form: INJ, BID, Dosing Weight 86.364, kg, Start date: 07/13/13 21:00:00, Duration: 30 day, Stop date: 08/12/13 9:00:00Same as Levemir "single patient use only" pneumococcal 0.5 ml, Route: No Longer SYSTEM 07/13[facility] 23-valent IM, Drug Form: Active 2012 Medical vaccine INJ, Start date: [place] 07/13/13 9:00:00, Stop date: 07/13/13 9:00:00 influenza virus 0.5 ml, Route: No Longer SYSTEM 07/13[facility] vaccine, IM, Drug Form: Active 2012 Medical inactivated SUSP, Start Center date: 07/13/13 9:00:00, Stop date: 07/13/13 9:00:00 lisinopril 20 mg, 1 tab, No Longer [facility] 07/13[facility] Route: PO, Drug Active 2012 Medical form: TAB, Center Daily, Dosing Weight 86.364, kg, Start date: 07/13/13 9:00:00, Duration: 30 day, Stop date: 08/11/13 9:00:00(Same as: Prinivil, Zestril) metoprolol 50 mg, Route: No Longer [facility] tartrate PO, Drug form: Active 2012 Medical TAB, Daily, Center Dosing Weight 86.364, kg, Start date: 07/13/13 9:00:00, Duration: 30 day, Stop date: 08/11/13 9:00:00 Lyrica 150 mg, 2 cap, No Longer [facility] Route: PO, Drug Active 2012 Medical form: CAP, BID, Center Dosing Weight 86.364, kg, Start date: 07/13/13 9:00:00, Duration: 30 day, Stop date: 08/11/13 17:00:00(Same as: Lyrica) potassium 20 mEq, 1 tab, No Longer [facility] [place] chloride Route: PO, Drug Active 2012 Medical form: ERTAB, Center Daily, Dosing Weight 86.364, kg, Start date: 07/13/13 9:00:00, Duration: 30 day, Stop date: 08/11/13 9:00:00(Same as: K-Dur 20) "Do Not Crush" With food and full glass of water Effient 10 mg, 1 tab, No Longer [facility] Route: PO, Drug Active 2012 Medical form: TAB, Center Daily, Dosing Weight 86.364, kg, Start date: 07/13/13 9:00:00, Duration: 30 day, Stop date: 08/11/13 9:00:00Same as Effient For patients 60kg, without history of TIA/Ischemic stroke and without likely bypass surgery Protonix 40 mg, 1 tab, No Longer [facility] [place] Route: PO, Drug Active 2012 Medical form: ECTAB, Center BID-Before Meals, Dosing Weight 86.364, kg, Start date: 07/13/13 9:00:00, Stop date: 08/11/13 16:30:00Tablet should not be chewed or crushed. (Same as: Protonix) meloxicam 7.5 mg, Route: No Longer [facility] [place] PO, Drug form: Active 2012 Medical TAB, BID, Dosing Center Weight 86.364, kg, Start date: 07/13/13 9:00:00, Duration: 30 day, Stop date: 08/11/13 17:00:00 magnesium oxide 400 mg, 1 tab, No Longer [facility] Route: PO, Drug Active 2012 Medical form: TAB, Center Daily, Dosing Weight 86.364, kg, Start date: 07/13/13 9:00:00, Duration: 30 day, Stop date: 08/11/13 9:00:00(Same as: Mag-Ox 400) Magnesium oxide [id number] elemental magnesium Dose=____mg magnesium oxide (___mg elemental magnesium) furosemide 40 40 mg, 1 tab, No Longer [facility] mg oral tablet Route: PO, Drug Active 2012 Medical form: TAB, Center Daily, Dosing Weight 86.364, kg, Start date: 07/13/13 9:00:00, Duration: 30 day, Stop date: 08/11/13 9:00:00(Same as: Lasix) May cause GI upset. Give with food or milk. ferrous sulfate 325 mg, 1 tab, No Longer [facility] [place] Route: PO, Drug Active 2012 Medical form: ECTAB, Center TID, Dosing Weight 86.364, kg, Start date: 07/13/13 9:00:00, Duration: 30 day, Stop date: 08/11/13 17:00:00Give with food. "Do Not Crush" clonazepam 0.5 mg, 1 tab, No Longer [facility] Route: PO, Drug Active 2012 Medical form: TAB, TID, Center Dosing Weight 86.364, kg, Start date: 07/13/13 9:00:00, Duration: 30 day, Stop date: 08/11/13 17:00:00(Same As: Klonopin) Insulin regular 5 unit, 0.05 mL, No Longer [facility] Route: SUB-Q, Active 2012 Medical Drug [...] 10 mg, 2 mL, No Longer Adolfo [facility] Route: IVP, Drug Active 2012 Medical form: INJ, Q6H, Center Dosing Weight 86.364, kg, Start date: 07/13/13 0:00:00, Duration: 30 day, Stop date: 08/11/13 18:00:00(Same as: Reglan) normal saline 1,000 mL, Rate: No Longer [facility] 0.9% IV 1,000 200 ml/hr, Active 2012 Medical mL Infuse over: 5 Center hr, Route: IV, Dosing Weight 86.364 kg, Total Volume: 1,000, Start date: 07/12/13 21:08:00, Duration: 3 doses or times, Stop date: 07/13/13 12:07:00 metoprolol 50 mg, 1 tab, No Longer [facility] tartrate Route: PO, Drug Active 2012 Medical form: TAB, Q12H, Center Dosing Weight 86.364, kg, Start date: 07/12/13 21:00:00, Duration: 30 day, Stop date: 08/11/13 9:00:00(Same as: Lopressor) Levemir 12 unit, 0.12 No Longer [facility] mL, Route: Active 2012 Medical SUB-Q, Drug Center form: INJ, BID, Dosing Weight 86.364, kg, Start date: 07/12/13 21:00:00, Duration: 30 day, Stop date: 08/11/13 9:00:00Same as Levemir "single patient use only" Cymbalta 120 mg, 2 cap, No Longer [facility] Route: PO, Drug Active 2012 Medical form: DR, [place] Bedtime, Dosing Weight 86.364, kg, Start date: 07/12/13 21:00:00, Duration: 30 day, Stop date: 08/10/13 21:00:00Non Formulary Drug (Same as: Cymbalta) (Do Not Crush) ProAir HFA 90 2 puff, Route: No Longer [facility] mcg/inh INHALATION, Drug Active 2012 Medical inhalation Form: AERO/A, Center aerosol with Dosing Weight adapter 86.364, kg, QID, PRN Shortness of breath, Start date: 07/12/13 20:09:00, Duration: 30 day, Stop date: 08/11/13 20:08:00Albutero l 90 microgram/inh 8gm HFA Same as: VentAlessio marrerotil aspirin 81 mg 81 mg, 1 tab, No Longer [facility] [place] tablet, enteric Route: PO, Drug Active 2012 Medical coated form: ECTAB, [place] Daily, Dosing Weight 86.364, kg, Start date: 07/12/13 20:00:00, Duration: 30 day, Stop date: 08/11/13 9:00:00Do not crush or chew. (Same As: Ecotrin) glucagon 1 mg, Route: IM, No Longer Adol[facility] Drug form: Active 2012 Medical PDR/INJ, PRN, Center Dosing Weight 86.364, kg, PRN Blood Glucose Results, Start date: 07/12/13 18:26:00, Duration: 30 day, Stop date: 08/11/13 18:25:00 Dextrose 50% 12.5 gm, 25 mL, No Longer [facility] Syringe Route: IVP, Drug Active 2012 Medical Form: INJ, Center Dosing Weight 86.364, kg, PRN, PRN Blood Glucose Results, Start date: 07/12/13 18:26:00, Duration: 30 day, Stop date: 08/11/13 18:25:00 insulin aspart 4 unit, 0.04 mL, No Longer Adolfo [facility] Route: SUB-Q, Active 2012 Medical Drug form: SOLN, [place] TID-Before Meals, Dosing Weight 86.364, kg, PRN Blood Glucose Results, Start date: 07/12/13 18:26:00, Duration: 30 day, Stop date: 08/11/13 18:25:00Roll in palms of hands gently; Do not shake vigorously. (Same as: NovoLog) "single patient use only" Stable for 28 days at room temperature. Expires in days from Da te tramadol 50 mg 50 mg, 1 tab, No Longer [facility] oral tablet Route: PO, Drug Active 2012 Medical form: TAB, Q4H, Center Dosing Weight 86.364, kg, PRN as needed for pain, Start date: 07/12/13 18:24:00, Duration: 30 day, Stop date: 08/11/13 18:23:00Not to exceed 400mg/day. (Same As: Ultram) acetaminophen-h 1 tab, Route: No Longer [facility] [place] ydrocodone 325 PO, Drug Form: Active 2012 Medical mg-5 mg oral TAB, Dosing Center tablet Weight 86.364, kg, Q4H, PRN Pain, Start date: 07/12/13 18:23:00, Duration: 30 day, Stop date: 08/11/13 18:22:00(Same as: [place] 325/5) Do not exceed 4gm/day of acetaminophen. Flexeril 10 mg, 1 tab, No Longer Adolfo [facility] Route: PO, Drug Active 2012 Medical form: TAB, TID, Center Dosing Weight 86.364, kg, PRN Spasm, Start date: 07/12/13 18:23:00, Duration: 30 day, Stop date: 08/11/13 18:22:00(Same As: Flexeril) benzonatate 100 mg, 1 cap, No Longer [facility] Route: PO, Drug Active 2012 Medical form: CAP, TID, Center Dosing Weight 86.364, kg, PRN as needed for cough, Start date: 07/12/13 18:23:00, Duration: 30 day, Stop date: 08/11/13 18:22:00(Same As: Oleksandr Francis) "Do Not Crush" Saline Flush 5 ml, Route: No Longer [facility] 0.9% IVP, Drug Form: Active 2012 Medical INJ, Dosing Center Weight 86.364, kg, PRN, PRN Line Flush, Start date: 07/12/13 18:22:00, Duration: 30 day, Stop date: 08/11/13 18:21:00(Same as: BD Posiflush) ondansetron 4 mg, 2 mL, No Longer Ad[facility] Route: IVP, Drug Active 2012 Medical form: INJ, Q8H, Center Dosing Weight 86.364, kg, PRN Nausea & Vomiting, Start date: 07/12/13 18:22:00, Duration: 30 day, Stop date: 08/11/13 18:21:00(Same as: Zofran) aspirin 81 mg 81 mg, 1 tab, Active [facility] tablet, enteric PO, Daily, 0 2012 Medical coated tab, Center Substitution Allowed, ECTAB Klor-Con M20 20 mEq, 1 tab, No Longer [facility] oral tablet, PO, Daily, 180 Active 2012 Medical extended tab, Center release Substitution Allowed, ERTAB furosemide 40 40 mg, 1 tab, No Longer [facility] mg oral tablet PO, Daily, 30 Active 2012 Medical tab, Center Substitution Allowed, TAB benzonatate 100 PO, TID, PRN, 1 Active [facility] mg oral capsule to 2 tabs, prn, 2012 Medical Substitution Center Allowed1 to 2 tabs metoprolol 50 mg, 1 tab, No Longer [facility] tartrate 50 mg PO, Daily, 180 Active 2012 Medical oral tablet tab, Center Substitution Allowed, TAB Reglan 10 mg, 2 mL, Inactive [facility] 07/12[facility] Route: IVP, Drug 2012 Medical form: INJ, ONCE, Center Dosing Weight 86.364, kg, Priority: STAT, Start date: 07/12/13 12:12:00, Stop date: 07/12/13 12:12:00(Same as: Reglan) Zofran 4 mg, Route: Inactive [facility] 07/12[facility] IVP, Drug form: 2012 Medical INJ, ONCE, Center Dosing Weight 86.364, kg, Priority: STAT, Start date: 07/12/13 10:52:00, Stop date: 07/12/13 10:52:00 morphine 4 mg, Route: Inactive [facility] 07/12[facility] Sulfate IVP, Drug form: 2012 Medical INJ, ONCE, Center Dosing Weight 86.364, kg, Priority: STAT, Start date: 07/12/13 10:51:00, Stop date: 07/12/13 10:51:00 Zofran 4 mg, 2 mL, Inactive [facility] 07/12[facility] Route: IVP, Drug 2012 Medical [...] Stop date: 07/12/13 11:05:00, Bolus DoseBolus Dose [place] 5/325 1 tab, Route: Inactive [facility] [...] Levemir 10 unit, 0.1 mL, Inactive [place] 07/12[facility] Route: SUB-Q, 2012 Medical Drug form: INJ, Center ONCE, Dosing Weight 86.364, kg, Start date: 07/12/13 4:20:00, Stop date: 07/12/13 4:20:00Same as Levemir "single patient use only" Omnipaque 100 mL, Route: Inactive [facility] [facility] 350mg/ml IVP, Drug Form: 2012 Medical SOLN, Dosing Center Weight 86.364, kg, ONCALL, STAT, Start date: 07/12/13 4:18:00, Duration: 1 doses or times, Dose=2.2ml/kg, Max [id number] -- "To be infused by Radiology Staff ONLY"Dose=2.2ml/ kg, Max [id number] -- "To be infused by Radiology Staff [...] mg, 1 tab, PO No Longer [facility] Route: PO, Drug Active 2012 Medical form: TAB, Center Daily, Dosing Weight 90, kg, Start date: 04/03/13 9:00:00, Duration: 30 day, Stop date: 05/02/13 9:00:00 Lyrica 150 mg, 2 cap, PO No Longer [facility] Route: PO, Drug Active 2012 Medical form: CAP, BID, Center Dosing Weight 90, kg, Start date: 04/03/13 9:00:00, Duration: 30 day, Stop date: 05/02/13 17:00:00 Protonix 40 mg, 1 tab, PO No Longer [facility] Route: PO, Drug Active 2012 Medical form: ECTAB, Center BID, Dosing Weight 90, kg, Start date: 04/03/13 9:00:00, Duration: 30 day, Stop date: 05/02/13 17:00:00 metoclopramide 10 mg, 1 tab, PO No Longer [facility] 10 mg oral Route: PO, Drug Active 2012 Medical tablet form: TAB, TID, Center Dosing Weight 90, kg, Start date: 04/03/13 9:00:00, Duration: 30 day, Stop date: 05/02/13 17:00:00 meloxicam 7.5 mg, 1 tab, PO No Longer [facility] Route: PO, Drug Active 2012 Medical form: TAB, BID, Center Dosing Weight 90, kg, Priority: Routine, Start date: 04/03/13 9:00:00, Duration: 30 day, Stop date: 05/02/13 17:00:00 lisinopril 20 mg, Route: PO No Longer [facility] PO, Drug form: Active 2012 Medical [...] unit, 0.06 mL, SUB-Q No Longer [facility] Route: SUB-Q, Active 2012 Medical Drug [...] mg, 1 cap, PO No Longer [facility] Route: PO, Drug Active 2012 Medical form: DRC, Center Bedtime, Dosing Weight 90, kg, Start date: 04/02/13 21:00:00, Duration: 30 day, Stop date: 05/01/13 21:00:00 magnesium oxide 400 mg, 1 tab, PO No Longer [facility] Route: PO, Drug Active 2012 Medical form: TAB, Center Daily, Dosing Weight 90, kg, Priority: NOW, Start date: 04/02/13 20:45:00, Duration: 30 day, Stop date: 05/02/13 9:00:00 Levemir 12 unit, 0.12 SUB-Q No Longer [facility] mL, Route: Active 2012 Medical SUB-Q, Drug Center form: INJ, BID, Dosing Weight 90, kg, Start date: 04/02/13 20:45:00, Duration: 30 day, Stop date: 05/02/13 17:00:00 hydrALAZINE 10 mg, 0.5 mL, IVP No Longer [facility] Route: IVP, Drug Active 2012 Medical form: INJ, Q4H, Center Dosing Weight 90, kg, PRN Hypertension, Start date: 04/02/13 20:37:00, Duration: 30 day, Stop date: 05/02/13 20:36:00 lisinopril 20 mg, 1 tab, PO No Longer [facility] Route: PO, Drug Active 2012 Medical form: TAB, Center Daily, Dosing Weight 90, kg, Start date: 04/02/13 20:30:00, Duration: 30 day, Stop date: 05/02/13 9:00:00 metoprolol 12.5 mg, 1 ea, PO No Longer [facility] tartrate Route: PO, Drug Active 2012 Medical form: TAB, BID, Center Dosing Weight 90, kg, Start date: 04/02/13 20:30:00, Duration: 30 day, Stop date: 05/02/13 17:00:00 insulin aspart 8 unit, 0.08 mL, SUB-Q No Longer [facility] Route: SUB-Q, Active 2012 Medical Drug form: SOLN, Center TID-Before Meals, Dosing Weight 90, kg, PRN Blood Glucose Results, Start date: 04/02/13 20:30:00, Duration: 30 day, Stop date: 05/02/13 20:29:00 glucagon 1 mg, Route: IM, IM No Longer [facility] Drug form: Active 2012 Medical PDR/INJ, PRN, Center Dosing Weight 90, kg, PRN Blood Glucose Results, Start date: 04/02/13 20:30:00, Duration: 30 day, Stop date: 05/02/13 20:29:00 Dextrose 50% 25 gm, 50 mL, IVP No Longer [facility] Syringe Route: IVP, Drug Active 2012 Medical Form: INJ, Center Dosing Weight 90, kg, PRN, PRN Blood Glucose Results, Start date: 04/02/13 20:30:00, Duration: 30 day, Stop date: 05/02/13 20:29:00 Insulin regular 8 unit, Route: SUB-Q No Longer [facility] SUB-Q, Active 2012 Medical TID-Before Center Meals, Dosing Weight 90, kg, PRN Blood Glucose Results, Start date: 04/02/13 20:29:00, Duration: 30 day, Stop date: 05/02/13 20:28:00 glucagon 1 mg, Route: IM, IM No Longer [facility] PRN, Dosing Active 2012 Medical Weight 90, kg, Center PRN Blood Glucose Results, Start date: 04/02/13 20:29:00, Duration: 30 day, Stop date: 05/02/13 20:28:00 Dextrose 50% 50 mL, Route: IVP No Longer [facility] Syringe IVP, Dosing Active 2012 Medical Weight 90, kg, Center PRN, PRN Blood Glucose Results, Start date: 04/02/13 20:29:00, Duration: 30 day, Stop date: 05/02/13 20:28:00 Zofran 4 mg, 2 mL, IV No Longer [facility] Route: IV, Drug Active 2012 Medical form: INJ, Q8H, Center Dosing Weight 90, kg, PRN Nausea, Start date: 04/02/13 20:29:00, Duration: 30 day, Stop date: 05/02/13 20:28:00 Maalox Advanced 30 mL, Route: PO No Longer [facility] Regular PO, Drug Form: Active 2012 Medical Strength SUSP SUSP, Dosing Center Weight 90, kg, QID, PRN Indigestion, Start date: 04/02/13 20:28:00, Duration: 30 day, Stop date: 05/02/13 20:27:00 Flexeril 10 mg, 1 tab, PO No Longer [facility] Route: PO, Drug Active 2012 Medical form: TAB, TID, Center Dosing Weight 90, kg, PRN Spasm, Start date: 04/02/13 20:22:00, Duration: 30 day, Stop date: 05/02/13 20:21:00 acetaminophen-h 1 tab, Route: PO No Longer [facility] ydrocodone 325 PO, Drug Form: Active 2012 Medical mg-5 mg oral TAB, Dosing Center tablet Weight 90, kg, Q4H, PRN Pain, Start date: 04/02/13 20:22:00, Duration: 30 day, Stop date: 05/02/13 20:21:00 Phenergan 12.5 mg, 0.5 mL, IVPB No Longer Mitch [facility] Route: IVPB, Active 2012 Medical Drug form: INJ, Center ONCE, Dosing Weight 90, kg, Start date: 04/02/13 20:11:00, Stop date: 04/02/13 20:11:00 morphine 4 mg, 1 mL, IVP No Longer Mitch [facility] Sulfate Route: IVP, Drug Active 2012 Medical form: INJ, ONCE, Center Dosing Weight 90, kg, Start date: 04/02/13 20:10:00, Stop date: 04/02/13 20:10:00 Phenergan 12.5 mg, 0.5 mL, IVPB No Longer Zhang [facility] Route: IVPB, Active 2012 Medical Drug form: INJ, Center ONCE, Dosing Weight 90, kg, Priority: STAT, Start date: 04/02/13 17:11:00, Stop date: 04/02/13 17:11:00 Zofran 4 mg, 2 mL, IVP No Longer Zhang [facility] Route: IVP, Drug Active 2012 Medical form: INJ, ONCE, Center Dosing Weight 90, kg, Priority: STAT, Start date: 04/02/13 16:52:00, Stop date: 04/02/13 16:52:00 nitroglycerin 0.4 mg, 1 tab, SL No Longer Kiki [facility] Route: SL, Drug Active 2012 Medical form: TAB, Center Q5Min, Dosing Weight 90, kg, PRN Chest Pain, Priority: STAT, Start date: 04/02/13 16:31:00, Duration: 3 doses or times, Stop date: Limited # of times aspirin 325 mg, 1 tab, PO No Longer Kiki [facility] Route: PO, Drug Active 2012 Medical form: ECTAB, Center ONCE, Dosing Weight 90, kg, Priority: STAT, Start date: 04/02/13 16:31:00, Stop date: 04/02/13 16:31:00 morphine 4 mg, 1 mL, IVP No Longer Kiki [facility] Sulfate Route: IVP, Drug Active 2012 Medical form: INJ, ONCE, Center Dosing Weight 90, kg, Start date: 04/02/13 16:30:00, Stop date: 04/02/13 16:30:00 erythromycin 1 cap, PO, Q12H, PO Active [facility] [place] 250 mg oral 14 cap, 2012 Medical enteric coated Substitution Center tablet Allowed, ECTAB GI cocktail 30 ml, Route: PO No Longer [facility] PO, Drug Form: Active 2012 Medical [...] gm, 50 mL, IVPB No Longer [facility] sulfate Route: IVPB, Active 2012 Medical Drug form: INJ, Center Q2H, Dosing Weight 90, kg, Total Dose=4 gm, Start date: 03/08/13 12:00:00, Duration: 2 doses or times, Stop date: 03/08/13 14:00:00, For Mg=1.5 - 1.7 mg/dLFor Mg=1.5 - 1.7 mg/dL insulin aspart 5 unit, 0.05 mL, SUB-Q No Longer [place] [facility] Route: SUB-Q, Active 2012 Medical Drug form: SOLN, [place] ONCE, Dosing Weight 90, kg, Start date: 03/08/13 3:17:00, Stop date: 03/08/13 3:17:00 Zocor 40 mg, 1 tab, PO No Longer [place] [facility] Route: PO, Drug Active 2012 Medical form: TAB, Center Bedtime, Dosing Weight 90, kg, Start date: 03/07/13 21:00:00, Duration: 30 day, Stop date: 04/05/13 21:00:00 Cymbalta 120 mg, 2 cap, PO No Longer [place] [facility] Route: PO, Drug 2012 Medical form: [...] unit, 0.1 mL, SUB-Q No Longer [place] [facility] Route: SUB-Q, Active 2012 Medical Drug form: SOLN, Center ONCE, Dosing Weight 90, kg, Start date: 03/07/13 19:16:00, Stop date: 03/07/13 19:16:00 Lyrica 150 mg, 2 cap, PO No Longer [place] [facility] Route: PO, Drug Active 2012 Medical form: CAP, BID, Center Dosing Weight 90, kg, Start date: 03/07/13 17:00:00, Duration: 30 day, Stop date: 04/06/13 9:00:00 Protonix 40 mg, 1 tab, PO No Longer [place] [facility] Route: PO, Drug Active 2012 Medical form: ECTAB, Center BID, Dosing Weight 90, kg, Start date: 03/07/13 17:00:00, Duration: 30 day, Stop date: 04/06/13 9:00:00 meloxicam 7.5 mg, 1 tab, PO No Longer [place] [facility] Route: PO, Drug Active 2012 Medical form: TAB, Center BID-Meals, Dosing Weight 90, kg, Start date: 03/07/13 17:00:00, Duration: 30 day, Stop date: 04/06/13 8:00:00 Flexeril 10 mg, 1 tab, PO No Longer [place] [facility] Route: PO, Drug Active 2012 Medical form: TAB, BID, Center Dosing Weight 90, kg, Start date: 03/07/13 17:00:00, Duration: 30 day, Stop date: 04/06/13 9:00:00 NovoLog FlexPen 6 unit, 0.06 mL, SUB-Q No Longer [place] [facility] Route: SUB-Q, Active 2012 Medical Drug [...] mg, 1 tab, PO No Longer [place] [facility] Route: PO, Drug Active 2012 Medical form: TAB, Center Daily, Dosing Weight 90, kg, Start date: 03/07/13 13:30:00, Duration: 30 day, Stop date: 04/06/13 9:00:00 magnesium oxide 400 mg, 1 tab, PO No Longer [place] [facility] Route: PO, Drug Active 2012 Medical form: TAB, Center Daily, Dosing Weight 90, kg, Start date: 03/07/13 13:30:00, Duration: 30 day, Stop date: 04/06/13 9:00:00 lisinopril 20 mg, 1 tab, PO No Longer [place] [facility] Route: PO, Drug Active 2012 Medical form: TAB, Center Daily, Dosing Weight 90, kg, Start date: 03/07/13 13:30:00, Duration: 30 day, Stop date: 04/06/13 9:00:00 Reglan 5 mg, 1 tab, PO No Longer [place] [facility] Route: PO, Drug Active 2012 Medical form: TAB, TID, Center Dosing Weight 90, kg, Start date: 03/07/13 13:00:00, Duration: 30 day, Stop date: 04/06/13 9:00:00 ferrous sulfate 325 mg, 1 tab, PO No Longer [place] [facility] Route: PO, Drug Active 2012 Medical form: ECTAB, Center TID, Dosing Weight 90, kg, Start date: 03/07/13 13:00:00, Duration: 30 day, Stop date: 04/06/13 9:00:00 clonazepam 0.5 mg, 1 tab, PO No Longer [place] [facility] Route: PO, Drug Active 2012 Medical form: TAB, TID, Center Dosing Weight 90, kg, Start date: 03/07/13 13:00:00, Duration: 30 day, Stop date: 04/06/13 9:00:00 NovoLog 6 unit, SUB-Q, SUB-Q No Longer [place] TID-Before Active 2012 Medical Meals, Center Substitution Allowed Levemir 12 unit, SUB-Q, SUB-Q Active [place] BID, 2012 Medical Substitution Center Allowed NS 1,000 mL 1,000 mL, Rate: IV No Longer [place] 125 ml/hr, Active 2012 Medical Infuse over: 8 Center hr, Route: IV, Dosing Weight 90 kg, Total Volume: 1,000, Start date: 03/07/13 12:19:00, Duration: 30 day, Stop date: 04/06/13 12:18:00 insulin aspart 2 unit, 0.02 mL, SUB-Q No Longer [place] Route: SUB-Q, Active 2012 Medical Drug form: [facility] TID-Before Meals, Dosing Weight 90, kg, PRN Blood Glucose Results, Start date: 03/07/13 11:55:00, Duration: 30 day, Stop date: 04/06/13 11:54:00 glucagon 1 mg, Route: IM, IM No Longer [place] Drug form: Active 2012 Medical PDR/INJ, PRN, Center Dosing Weight 90, kg, PRN Blood Glucose Results, Start date: 03/07/13 11:55:00, Duration: 30 day, Stop date: 04/06/13 11:54:00 Dextrose 50% 12.5 gm, 25 mL, IVP No Longer [place] Syringe Route: IVP, Drug Active 2012 Medical Form: INJ, Center Dosing Weight 90, kg, PRN, PRN Blood Glucose Results, Start date: 03/07/13 11:55:00, Duration: 30 day, Stop date: 04/06/13 11:54:00 Phenergan 12.5 mg, 0.5 mL, IVPB No Longer [place] Route: IVPB, Active 2012 Medical Drug form: INJ, Center Q4H, Dosing Weight 90, kg, PRN Nausea & Vomiting, Start date: 03/07/13 11:53:00, Duration: 30 day, Stop date: 04/06/13 11:52:00 albuterol 2.49 mg, 3 mL, NEB No Longer [place] 0.083% Route: NEB, Drug Active 2012 Medical inhalation form: SOLN, Center solution RQ4H, Dosing Weight 90, kg, PRN as needed for wheezing, Start date: 03/07/13 11:53:00, Duration: 30 day, Stop date: 04/06/13 11:52:00 Zofran 4 mg, 2 mL, IVP No Longer [place] [facility] Route: IVP, Drug Active 2012 Medical form: INJ, Q4H, Center Dosing Weight 90, kg, PRN Nausea, Start date: 03/07/13 11:53:00, Duration: 30 day, Stop date: 04/06/13 11:52:00 acetaminophen-h 1 tab, Route: PO No Longer [place] [facility] ydrocodone 325 PO, Drug Form: Active 2013 Medical mg-10 mg oral TAB, Dosing Center tablet Weight 90, kg, Q4H, PRN Pain Score 4-6, Start date: 03/07/13 11:51:00, Duration: 30 day, Stop date: 04/06/13 11:50:00 acetaminophen-h 1 tab, Route: PO No Longer [place] [facility] ydrocodone 325 PO, Drug Form: Active 2013 Medical mg-5 mg oral TAB, Dosing Center tablet Weight 90, kg, Q4H, PRN Pain Score 1-3, Start date: 03/07/13 11:51:00, Duration: 30 day, Stop date: 04/06/13 11:50:00 acetaminophen 650 mg, 2 tab, PO No Longer [place] [facility] Route: PO, Drug Active 2012 Medical form: TAB, Q4H, Center Dosing Weight 90, kg, PRN Pain 1-3/Temp > 100.4 F, Start date: 03/07/13 11:51:00, Duration: 30 day, Stop date: 04/06/13 11:50:00 morphine 2 mg, 1 mL, IVP No Longer [place] 03/07[facility] Sulfate Route: IVP, Drug Active 2012 Medical form: INJ, Q4H, Center Dosing Weight 90, kg, PRN Pain Score 7-10, Start date: 03/07/13 11:51:00, Duration: 30 day, Stop date: 04/06/13 11:50:00 docusate 100 mg, 1 cap, PO No Longer [place] 07/02[facility] Route: PO, Drug Active 2012 Medical form: CAP, BID, Center Dosing Weight 90, kg, PRN Constipation, Start date: 03/07/13 11:51:00, Duration: 30 day, Stop date: 04/06/13 11:50:00 Levemir 12 unit, 0.12 SUB-Q No Longer [place] [facility] mL, Route: Active 2012 Medical SUB-Q, Drug Center form: INJ, ONCE, Dosing Weight 90, kg, Start date: 03/07/13 6:10:00, Stop date: 03/07/13 6:10:00 lidocaine-epi 1 ml, Route: SUB-Q No Longer [place] [facility] [id number] SUB-Q, Drug Active 2012 Medical Form: SOLN, Center Dosing Weight 90, kg, ONCE, STAT, Start date: 03/07/13 5:18:00, Stop date: 03/07/13 5:18:00 Insulin regular 99 mL, Rate: IVPB No Longer [place] [facility] 100 unit + Start Insulin Active [...] gm, 25 mL, IVP No Longer [place] [facility] Syringe Route: IVP, Drug Active 2012 Medical Form: INJ, Center Dosing Weight 90, kg, PRN, PRN Blood Glucose Results, Start date: 03/07/13 5:13:00, Duration: 30 day, Stop date: 04/06/13 5:12:00 NS (Bolus) IV 1,000 mL, Rate: IV No Longer [place] [facility] 1,000 mL 1,000 ml/hr, Active 2012 Medical Infuse over: 1 Center hr, Route: IV, Dosing Weight 90 kg, Total Volume: 1,000, Priority: STAT, Start date: 03/07/13 2:36:00, Duration: 1 doses or times, Stop date: 03/07/13 3:35:00, Bolus DoseBolus Dose magnesium 2 gm, 50 mL, IVPB No Longer [place] sulfate Route: IVPB, 2012 Medical Drug form: INJ, Center ONCE, Dosing Weight 90, kg, Start date: 03/07/13 2:35:00, Stop date: 03/07/13 2:35:00 Insulin regular 10 unit, 0.1 mL, SUB-Q No Longer [place] Route: SUB-Q, 2012 Medical Drug form: SOLN, Center ONCE, Dosing Weight 90, kg, Priority: STAT, Start date: 03/07/13 2:16:00, Stop date: 03/07/13 2:16:00 Reglan 10 mg, 2 mL, IVP No Longer [place] Route: IVP, Drug 2012 Medical form: INJ, ONCE, Center Dosing Weight 90, kg, Priority: STAT, Start date: 03/07/13 2:16:00, Stop date: 03/07/13 2:16:00 NS 1,000 mL 1,000 mL, Rate: IV No Longer [place] 150 ml/hr, 2012 Medical Infuse over: 6.7 Center hr, Route: IV, Dosing Weight 90 kg, Total Volume: 1,000, Start date: 03/07/13 2:15:00, Duration: 30 day, Stop date: 04/06/13 2:14:00 droperidol 1.25 mg, Route: IVP No Longer [place] [facility] IVP, ONCE, 2012 Medical Dosing Weight Center 90, kg, PRN Nausea & Vomiting, Start date: 03/07/13 0:48:00 D5W 1/2NS 1,000 1,000 mL, Rate: IV No Longer [place] mL 125 ml/hr, 2012 Medical Infuse over: 8 Center hr, Route: IV, Dosing Weight 90 kg, Total Volume: 1,000, Start date: 03/07/13 0:43:00, Duration: 30 day, Stop date: 04/06/13 0:42:00 Insulin regular 4 unit, 0.04 mL, SUB-Q No Longer [place] Route: SUB-Q, Active 2012 Medical Drug form: SOLN, Center Sliding Scale, Dosing Weight 90, kg, PRN Blood Glucose Results, Start date: 03/07/13 0:01:00, Duration: 30 day, Stop date: 04/06/13 0:00:00 glucagon 1 mg, Route: IM, IM No Longer [place] Drug form: Active 2012 Medical PDR/INJ, PRN, Center Dosing Weight 90, kg, PRN Blood Glucose Results, Start date: 03/07/13 0:01:00, Duration: 30 day, Stop date: 04/06/13 0:00:00 Dextrose 50% 25 gm, 50 mL, IVP No Longer [place] Syringe Route: IVP, Drug Active 2012 Medical Form: INJ, Center Dosing Weight 90, kg, PRN, PRN Blood Glucose Results, Start date: 03/07/13 0:01:00, Duration: 30 day, Stop date: 04/06/13 0:00:00 NS 1,000 mL 1,000 mL, Rate: IV No Longer [place] 125 ml/hr, 2012 Medical Infuse over: 8 Center hr, Route: IV, Dosing Weight 90 kg, Total Volume: 1,000, Start date: 03/06/13 23:21:00, Duration: 30 day, Stop date: 04/05/13 23:20:00 NS (Bolus) IV 1,000 mL, Rate: IV No Longer [place] 1,000 mL 1,000 ml/hr, 2012 Medical Infuse over: 1 Center hr, Route: IV, Dosing Weight 90 kg, Total Volume: 1,000, Priority: STAT, Start date: 03/06/13 23:21:00, Duration: 1 doses or times, Stop date: 03/07/13 0:20:00, Bolus DoseBolus Dose [place] 5/325 1 tab, PO, Q6H, PO No Longer [place] oral tablet PRN, 30 tab, Active 2012 Medical Substitution Center Allowed, Maintenance ferrous sulfate 325 mg, 1 tab, PO Active [place] [facility] 325 mg oral PO, TID, 30 tab, 2012 Medical enteric coated Substitution Center tablet Allowed, ECTAB acetaminophen-h 1 tab, PO, Q4H, PO Active [facility] ydrocodone 500 PRN, for pain, 2012 Medical mg-7.5 mg oral Substitution Center tablet Allowed, Maintenance, TAB meloxicam 7.5 7.5 mg, 1 tab, PO Active [place] 03/07[facility] mg oral tablet PO, BID, WITH 2012 Medical FOOD, 30 tab, Center Substitution Allowed, TABWITH FOOD Zocor 40 mg 40 mg, 1 tab, PO Active [place] 03/07[facility] oral tablet PO, Bedtime, 30 2012 Medical tab, Center Substitution Allowed, Maintenance ProAir HFA 90 Substitution Active [facility] mcg/inh Allowed, 2012 Medical inhalation Maintenance Center aerosol with adapter Flexeril 10 mg 10 mg, 1 tab, PO Active [place] [facility] oral tablet PO, TID, PRN, 30 2012 Medical tab, for spasm, Center Substitution Allowed, TAB Protonix 40 mg 40 mg, 1 tab, PO Active [place] [facility] oral enteric PO, BID, 30 tab, 2012 Medical coated tablet Substitution Center Allowed, ECTAB Lyrica 150 mg 150 mg, 1 cap, PO Active [place] [facility] oral capsule PO, BID, 90 cap, 2012 [facility] Substitution [place] Allowed, CAP Flagyl 500 mg 500 mg, 1 tab, PO No Longer [facility] oral tablet PO, Q6H, 30 tab, Active 2012 [facility] Substitution [place] Allowed metoclopramide 10 mg, 1 tab, PO Active [place] [facility] 10 mg oral PO, TID, 56 [...] mg, 1 mL, IVP No Longer [place] [facility] Sulfate Route: IVP, Drug Active 2012 Medical form: INJ, ONCE, Center Dosing Weight 90, kg, Start date: 03/06/13 21:27:00, Stop date: 03/06/13 21:27:00 Phenergan 12.5 mg, 0.5 mL, IVPB No Longer [place] [facility] Route: IVPB, Active 2012 Medical Drug form: INJ, Center ONCE, Dosing Weight 90, kg, Priority: STAT, Start date: 03/06/13 21:26:00, Stop date: 03/06/13 21:26:00 ergocalciferol 50,000 IntlUnit, PO No Longer [place] [facility] 1 cap, Route: Active 2012 Medical PO, Drug form: Center CAP, qWeek, Dosing Weight 100, kg, Start date: 12/07/12 9:00:00, Duration: 30 day, Stop date: 01/04/13 9:00:00 erythromycin 250 mg, 1 tab, PO Active [facility] stearate 250 mg PO, Q6H, 56 tab, 2012 Medical oral tablet Substitution Center Allowed, TAB Protonix 40 mg 40 mg, 1 tab, PO Active [facility] oral enteric PO, Daily, 2012 Medical coated tablet tab, Center Substitution Allowed, ECTAB pravastatin 80 80 mg, 1 tab, PO Active [facility] mg oral tablet PO, Daily, 30 2012 Medical tab, Center Substitution Allowed, TAB insulin detemir 14 unit, 0.14 SUB-Q Active [facility] 100 units/mL mL, SUB-Q, 2012 Medical subcutaneous Bedtime, 100 mL, Center solution Substitution Allowed, INJ insulin detemir 16 unit, 0.16 SUB-Q Active [facility] 100 units/mL mL, SUB-Q, 2012 Medical subcutaneous Daily, 100 mL, Center solution Substitution Allowed, INJ Protonix 40 mg, Route: IVP No Longer [place] [facility] IVP, Drug form: Active 2012 Medical INJ, Daily, Center Dosing Weight 100, kg, Priority: NOW, Start date: 12/06/12 16:52:00, Duration: 30 day, Stop date: 01/05/13 9:00:00 insulin detemir 16 unit, 0.16 SUB-Q No Longer [place] mL, Route: Active 2012 Medical SUB-Q, Drug Center form: INJ, Daily, Dosing Weight 100, kg, Start date: 12/06/12 9:00:00, Stop date: 01/04/13 9:00:00 [place] 7.5/325 1 tab, Route: PO No Longer [place] oral tablet PO, Drug Form: Active 2012 Medical TAB, Dosing Center Weight 100, kg, ONCE, Start date: 12/06/12 0:19:00, Stop date: 12/06/12 0:19:00 Pravachol 80 mg, 4 tab, PO No Longer [place] [facility] Route: PO, Drug Active 2012 Medical form: TAB, Center Bedtime, Start date: 12/05/12 21:00:00, Duration: 30 day, Stop date: 01/03/13 21:00:00 insulin detemir 14 unit, 0.14 SUB-Q No Longer [place] [facility] mL, Route: Active 2012 Medical SUB-Q, Drug Center form: INJ, Bedtime, Dosing Weight 100, kg, Start date: 12/05/12 21:00:00, Stop date: 01/03/13 21:00:00 morphine 4 mg, 1 mL, IVP No Longer [place] [facility] Sulfate Route: IVP, Drug Active 2012 Medical form: INJ, ONCE, Center Dosing Weight 100, kg, Start date: 12/05/12 16:51:00, Stop date: 12/05/12 16:51:00 erythromycin + 250 mg, Route: IVPB No Longer [place] [facility] Sodium Chloride IVPB, Q8H, Active 2012 Medical 0.9% IV 100 mL Dosing Weight Center 100, kg, Start date: 12/05/12 16:00:00, Duration: 30 day, Stop date: 01/04/13 8:00:00 potassium 20 mEq, 100 mL, IVPB No Longer [place] [facility] chloride Route: IVPB, Active 2012 Medical [...] mg, 1 tab, PO No Longer [place] Route: PO, Drug Active 2012 Medical form: ECTAB, Center Daily, Dosing Weight 100, kg, Start date: 12/04/12 9:00:00, Duration: 30 day, Stop date: 01/02/13 9:00:00 potassium 40 mEq, Route: IV No Longer [place] chloride IV, ONCE, Dosing Active 2012 Medical Weight 100, kg, Center Start date: 12/04/12 8:20:00, Stop date: 12/04/12 8:20:00 Phenergan 25 mg, 1 supp, MT No Longer [place] Route: MT, Drug Active 2012 Medical form: SUPP, Q4H, Center Dosing Weight 100, kg, PRN Nausea & Vomiting, Start date: 12/04/12 7:58:00, Duration: 30 day, Stop date: 01/03/13 7:57:00 Dextrose 50% 25 gm, 50 mL, IVP No Longer [place] [facility] Syringe Route: IVP, Drug Active 2012 Medical Form: INJ, Center Dosing Weight 100, kg, PRN, PRN Blood Glucose Results, Start date: 12/04/12 7:48:00, Duration: 30 day, Stop date: 01/03/13 7:47:00 glucagon 1 mg, Route: IM, IM No Longer [place] Drug form: Active 2012 Medical PDR/INJ, PRN, Center Dosing Weight 100, kg, PRN Blood Glucose Results, Start date: 12/04/12 7:48:00, Duration: 30 day, Stop date: 01/03/13 7:47:00 insulin aspart 4 unit, 0.04 mL, SUB-Q No Longer [place] Route: SUB-Q, Active 2012 Medical Drug form: SOLN, Center Bedtime, Dosing Weight 100, kg, PRN Blood Glucose Results, Start date: 12/04/12 7:48:00, Duration: 30 day, Stop date: 01/03/13 7:47:00 Protonix 40 mg, Route: IV No Longer [place] IV, Drug form: Active 2012 Medical INJ, ONCE, Center Dosing Weight 100, kg, Start date: 12/04/12 3:12:00, Stop date: 12/04/12 3:12:00 potassium 20 mEq, 100 mL, IVPB No Longer [place] [facility] chloride Route: IVPB, Active 2012 Medical Q2H, Start date: [place] 12/03/12 8:00:00, Stop date: 12/03/12 11:00:00 potassium 40 mEq, Route: IV No Longer [place] [facility] chloride IV, ONCE, Dosing Active 2012 Medical Weight 100, kg, Center Start date: 12/03/12 7:02:00, Stop date: 12/03/12 7:02:00 NS 1,000 mL 1,000 mL, Rate: IV No Longer [place] [facility] 125 ml/hr, Active 2012 Medical Infuse over: 8 Center hr, Route: IV, kg, Total Volume: 1,000, Start date: 12/02/12 16:54:00, Duration: 30 day, Stop date: 01/01/13 16:53:00 NS (Bolus) IV 1,000 mL, Rate: IV No Longer [place] 1,000 mL 1,000 ml/hr, Active 2012 Medical Infuse over: 1 Center hr, Route: IV, kg, Total Volume: 1,000, Priority: STAT, Start date: 12/02/12 13:12:00, Duration: 1 doses or times, Stop date: 12/02/12 14:11:00, Bolus DoseBolus Dose NS (Bolus) IV 1,000 mL, Rate: IV No Longer [place] [facility] 1,000 mL 1,000 ml/hr, Active 2012 Medical Infuse over: 1 Center hr, Route: IV, kg, Total Volume: 1,000, Priority: STAT, Start date: 12/02/12 12:10:00, Duration: 1 doses or times, Stop date: 12/02/12 13:09:00, Bolus DoseBolus Dose insulin detemir 20 unit, 0.2 mL, SUB-Q No Longer [place] Route: SUB-Q, Active 2012 Medical Drug form: INJ, Center BID, Dosing Weight 100, kg, Start date: 12/02/12 9:00:00, Duration: 30 day, Stop date: 12/31/12 21:00:00 calcium 1,000 mg, 10 mL, IVPB No Longer [place] chloride + Route: IVPB, Active 2012 Medical Sodium Chloride ONCE, Start Center 0.9% IV 100 mL date: 12/02/12 5:08:00, Stop date: 12/02/12 5:08:00 ceftriaxone 1 gm, Route: IVPB No Longer [place] [facility] IVPB, Drug form: Active 2012 Medical PDR/INJ, Center [id number], Dosing Weight 100, kg, Start date: 12/02/12 5:00:00, Duration: 30 day, Stop date: 12/31/12 5:00:00 calcium 1,000 mg, Route: IVPB No Longer [place] [facility] gluconate IVPB, Drug form: Active 2012 Medical INJ, ONCE, Center Dosing Weight 100, kg, Start date: 12/02/12 5:00:00, Stop date: 12/02/12 5:00:00 Dextrose 50% 25 mL, Route: IVP No Longer [place] [facility] Syringe IVP, Dosing Active 2012 Medical Weight 100, kg, Center PRN, PRN Blood Glucose Results, Start date: 12/02/12 4:51:00, Duration: 30 day, Stop date: 01/01/13 4:50:00 Insulin regular 100 mL, Rate: IVPB No Longer [place] [facility] 100 unit + Start Insulin Active [...] 4 mg, Route: IVP No Longer [place] [facility] IVP, Drug form: Active 2012 Medical INJ, ONCE, Center Dosing Weight 100, kg, Priority: STAT, Start date: 12/02/12 4:47:00, Stop date: 12/02/12 4:47:00 normal saline 1,000 mL, Rate: IV No Longer [place] 0.9% IV 1,000 1,000 ml/hr, Active 2012 Medical mL Infuse over: 1 Center hr, Route: IV, kg, Total Volume: 1,000, Start date: 12/02/12 3:19:00, Duration: 1 doses or times, Stop date: 12/02/12 4:18:00 Insulin regular 6 unit, 0.06 mL, IV No Longer [place] [facility] Route: IV, Drug Active 2012 Medical form: [place] MARRU[place] ONCE, Dosing Weight 100, kg, Priority: STAT, Start date: 12/02/12 3:19:00, Stop date: 12/02/12 3:19:00 insulin aspart 3 unit, 0.03 mL, SUB-Q No Longer [place] [facility] Route: SUB-Q, Active 2012 Medical Drug form: SOLN, [place] Bedtime, Dosing Weight 100, kg, PRN Blood [...] Route: SUB-Q, Active 2012 Medical [facility], [place] Bedtime, Dosing Weight 100, kg, PRN Blood Glucose Results, Start date: 12/01/12 13:08:00, Duration: 30 day, Stop date: 12/31/12 13:07:00 insulin aspart 4 unit, 0.04 mL, SUB-Q No Longer [place] Route: SUB-Q, Active 2012 Medical Drug form: [facility], [place] TID-Before Meals, Dosing Weight 100, kg, PRN [...] unit, 0.01 mL, SUB-Q No Longer [place] 11/30[facility] Route: SUB-Q, Active 2012 Medical Drug form: SOLN, Center Sliding Scale, Dosing Weight 100, kg, PRN Blood Glucose Results, Start date: 11/30/12 18:36:00, Duration: 30 day, Stop date: 12/30/12 18:35:00 insulin detemir 16 unit, 0.16 SUB-Q No Longer [place] 11/30[facility] Fe[facility] mL, Route: Active 2012 Medical SUB-Q, Drug Center form: INJ, Q12H, Dosing Weight 100, kg, Start date: 11/30/12 14:00:00, Duration: 30 day, Stop date: 12/30/12 9:00:00 Zofran 4 mg, 2 mL, IV No Longer [place] Route: IV, Drug Active 2012 Medical form: INJ, Q6H, Center Dosing Weight 100, kg, PRN Nausea, Start date: 11/30/12 13:32:00, Duration: 30 day, Stop date: 12/30/12 13:31:00 insulin aspart 10 unit, 0.1 mL, SUB-Q No Longer [place] [facility] Route: SUB-Q, Active 2012 Medical Drug form: SOLN, Center TID-Before Meals, Dosing Weight 100, kg, PRN Blood Glucose Results, Start date: 11/30/12 13:26:00, Duration: 30 day, Stop date: 12/30/12 13:25:00 Zofran 4 mg, 2 mL, IV No Longer [place] Route: IV, Drug Active 2012 Medical form: INJ, Q8H, Center Dosing Weight 100, kg, PRN Nausea, Start date: 11/30/12 11:58:00, Duration: 30 day, Stop date: 12/30/12 11:57:00 Zofran 4 mg, 2 mL, IVP No Longer [place] Route: IVP, Drug Active 2012 Medical form: INJ, ONCE, Center Dosing Weight 100, kg, Priority: NOW, Start date: 11/30/12 11:57:00, Stop date: 11/30/12 11:57:00 potassium 2 pkt, Route: PO No Longer [facility] [place] phosphate-sodiu PO, Drug Form: Active 2012 Medical m phosphate 250 PDR/REC, ONCE, Center mg-278 mg-164 Start date: mg oral powder 11/30/12 10:00:00, Stop date: 11/30/12 10:00:00 Dextrose 5% 1,000 mL, Rate: IV No Longer [place] with 0.45% NaCl 150 ml/hr, Active 2012 Medical IV 1,000 mL Infuse over: 6.7 Center hr, Route: IV, kg, Total Volume: 1,000, Start date: 11/30/12 9:12:00, Duration: 30 day, Stop date: 12/30/12 9:11:00 insulin detemir 16 unit, 0.16 SUB-Q No Longer [place] mL, Route: Active 2012 Medical SUB-Q, [...] unit, 0.1 mL, SUB-Q No Longer [place] [facility] Route: SUB-Q, Active 2012 Medical Drug form: SOLN, Center TID-Before Meals, Dosing Weight 100, kg, PRN Blood Glucose Results, Start date: 11/30/12 7:57:00, Duration: 30 day, Stop date: 12/30/12 7:56:00 glucagon 1 mg, Route: IM, IM No Longer [place] [facility] Drug form: Active 2012 Medical PDR/INJ, PRN, Center Dosing Weight 100, kg, PRN Blood Glucose Results, Start date: 11/30/12 7:57:00, Duration: 30 day, Stop date: 12/30/12 7:56:00 Dextrose 50% 25 gm, 50 mL, IVP No Longer [place] [facility] Syringe Route: IVP, Drug Active 2012 [...] 5,000 unit, 1 SUB-Q No Longer [place] [facility] units/mL mL, Route: Active 2012 Medical injectable SUB-Q, Drug Center solution form: INJ, Q8H, Dosing Weight 100, kg, Start date: 11/30/12 0:00:00, Duration: 30 day, Stop date: 12/29/12 16:00:00 hydrALAZINE 10 mg, 0.5 mL, IV No Longer [place] [facility] Route: IV, Drug Active 2012 Medical form: INJ, Q4H, Center Dosing Weight 100, kg, PRN Hypertension, Start date: 11/29/12 22:56:00, Duration: 30 day, Stop date: 12/29/12 22:55:00 simvastatin 40 mg, 1 tab, PO No Longer [place] [facility] Route: PO, Drug Active 2012 Medical form: TAB, Center Bedtime, Dosing Weight 101.364, kg, Start date: 11/29/12 21:00:00, Duration: 30 day, Stop date: 12/28/12 21:00:00 Cymbalta 60 mg, 1 cap, PO No Longer [place] [place] Route: PO, Drug Active 2012 Medical form: DRC, Center Bedtime, Dosing Weight 101.364, kg, Start date: 11/29/12 21:00:00, Stop date: 12/28/12 21:00:00 ceftriaxone 1 gm, Route: IVPB No Longer [facility] IVPB, Drug form: Active 2012 Medical PDR/INJ, Center [id number], Dosing Weight 100, kg, Start date: 11/29/12 20:00:00, Duration: 30 day, Stop date: 12/28/12 20:00:00 hydrALAZINE 5 mg, 0.25 mL, IV No Longer [facility] Route: IV, Drug Active 2012 Medical form: INJ, Q4H, Center Dosing Weight 100, kg, PRN Hypertension, Start date: 11/29/12 19:42:00, Duration: 30 day, Stop date: 12/29/12 19:41:00 Phenergan 12.5 mg, 0.5 mL, IVPB No Longer [facility] Route: IVPB, Active 2012 Medical Drug form: INJ, Center Q4H, Dosing Weight 100, kg, PRN Nausea & Vomiting, Start date: 11/29/12 17:56:00, Duration: 30 day, Stop date: 12/29/12 17:55:00 clonazepam 0.5 mg, 1 tab, PO No Longer [facility] Route: PO, Drug Active 2012 Medical [...] 1,000 mL, Rate: IV No Longer [facility] mL 200 ml/hr, Active 2012 Medical Infuse over: 5 Center hr, Route: IV, kg, Total Volume: 1,000, Start date: 11/29/12 14:41:00, Stop date: 12/29/12 14:40:00 Sodium Chloride 1,000 mL, Rate: IV No Longer [facility] 0.9% IV 1,000 200 ml/hr, Active 2012 Medical mL Infuse over: 5 Center hr, Route: IV, kg, Total Volume: 1,000, Start date: 11/29/12 14:41:00, Stop date: 12/29/12 14:45:00 Insulin regular 99 mL, Rate: IV No Longer [facility] 100 unit + Start Insulin Active 2012 Medical Sodium Chloride Drip Per ICU Center 0.9% IV 99 mL protocol, Route: IV, kg, Total Volume: 100, Start date: 11/29/12 12:42:00, Stop date: 12/29/12 12:41:00 Insulin regular 100 mL, Rate: IVPB No Longer [facility]o 11/29[facility] 100 unit + Start Insulin [...] gm, 25 mL, IVP No Longer [facility] Syringe Route: IVP, Drug Active 2012 [...] 90 mg, 1 tab, PO No Longer [facility] Route: PO, Drug Active 2012 Medical form: ERTAB, Center Daily, Dosing Weight 101.364, kg, Start date: 11/29/12 9:00:00, Duration: 30 day, Stop date: 12/28/12 9:00:00 clonazepam 0.5 mg, 1 tab, PO No Longer [facility] [place] Route: PO, Drug Active 2012 Medical form: TAB, TID, Center Dosing Weight 101.364, kg, Start date: 11/29/12 9:00:00, Duration: 30 day, Stop date: 12/28/12 17:00:00 lisinopril 20 mg, 1 tab, PO No Longer [facility] Route: PO, Drug Active 2012 Medical form: TAB, Q12H, Center Dosing Weight 101.364, kg, Start date: 11/29/12 9:00:00, Duration: 30 day, Stop date: 12/28/12 21:00:00 magnesium oxide 400 mg, 1 tab, PO No Longer [facility] Route: PO, Drug Active 2012 Medical form: TAB, Center Daily, Dosing Weight 101.364, kg, Start date: 11/29/12 9:00:00, Duration: 30 day, Stop date: 12/28/12 9:00:00 Effient 10 mg, 1 tab, PO No Longer [facility] Route: PO, Drug Active 2012 Medical form: TAB, Center Daily, Dosing Weight 101.364, kg, Start date: 11/29/12 9:00:00, Duration: 30 day, Stop date: 12/28/12 9:00:00 Levemir 8 unit, 0.08 mL, SUB-Q No Longer [facility] Route: SUB-Q, Active 2012 Medical Drug [...] 81 mg, 1 tab, PO No Longer [place] [facility] Route: PO, Drug Active 2012 Medical [...] mg, 0.4 mL, SUB-Q No Longer [facility] Route: SUB-Q, Active 2012 Medical Drug form: INJ, Center [id number], Dosing Weight 101.364, kg, Start date: 11/29/12 4:00:00, Duration: 30 day, Stop date: 12/28/12 4:00:00 Phenergan 12.5 mg, 0.25 IVPB No Longer [facility] mL, Route: IVPB, Active 2012 Medical Drug form: INJ, Center Q4H, Dosing Weight 101.364, kg, Start date: 11/29/12 4:00:00, Duration: 30 day, Stop date: 12/29/12 0:00:00 tramadol 50 mg 50 mg, 1 tab, PO No Longer [facility] oral tablet Route: PO, Drug Active 2012 Medical form: TAB, Q4H, Center Dosing Weight 101.364, kg, PRN as needed for pain, Start date: 11/29/12 3:46:00, Duration: 30 day, Stop date: 12/29/12 3:45:00 insulin aspart 3 unit, 0.03 mL, SUB-Q No Longer [facility] Route: SUB-Q, Active 2012 Medical Drug form: SOLN, [place] TID-Before Meals, Dosing Weight 101.364, kg, PRN Blood Glucose Results, Start date: 11/29/12 3:26:00, Duration: 30 day, Stop date: 12/29/12 3:25:00 Dextrose 50% 12.5 gm, 25 mL, IVP No Longer [facility] Syringe Route: IVP, Drug Active 2012 Medical Form: INJ, Center Dosing Weight 101.364, kg, PRN, PRN Blood Glucose Results, Start date: 11/29/12 3:26:00, Duration: 30 day, Stop date: 12/29/12 3:25:00 glucagon 1 mg, Route: IM, IM No Longer [facility] Drug form: Active 2012 Medical PDR/INJ, PRN, Center Dosing Weight 101.364, kg, PRN Blood Glucose Results, Start date: 11/29/12 3:26:00, Duration: 30 day, Stop date: 12/29/12 3:25:00 acetaminophen 650 mg, 20.3 mL, PO No Longer [facility] Route: PO, Drug Active 2012 Medical form: LIQ, Q4H, Center Dosing Weight 101.364, kg, PRN Pain 1-3/Temp > 100.4 F, Start date: 11/29/12 3:25:00, Duration: 30 day, Stop date: 12/29/12 3:24:00 docusate 100 mg, 1 cap, PO No Longer [facility] Route: PO, Drug Active 2012 Medical form: CAP, BID, Center Dosing Weight 101.364, kg, PRN Constipation, Start date: 11/29/12 3:25:00, Duration: 30 day, Stop date: 12/29/12 3:24:00 D5W 1/2NS 1,000 1,000 mL, Rate: IV No Longer [facility] mL 75 ml/hr, Infuse Active 2012 Medical over: 13.3 hr, Center Route: IV, kg, Total Volume: 1,000, Start date: 11/29/12 3:21:00, Duration: 30 day, Stop date: 12/29/12 3:20:00 NS 0.45% IV 1,000 mL, Rate: IV No Longer [facility] 1000 mL 125 ml/hr, Active 2012 Medical Infuse over: 8 Center hr, Route: IV, Dosing Weight 101.364 kg, Total Volume: 1,000, Start date: 11/29/12 3:18:00, Duration: 30 day, Stop date: 12/29/12 3:17:00 Reglan 10 mg, 2 mL, IVP No Longer [facility] Route: IVP, Drug Active 2012 Medical form: INJ, ONCE, Center Dosing Weight 101.364, kg, Priority: STAT, Start date: 11/29/12 2:31:00, Stop date: 11/29/12 2:31:00 Zofran 8 mg, Route: IVP No Longer [facility] IVP, Drug form: Active 2012 Medical INJ, ONCE, Center Dosing Weight 101.364, kg, Priority: STAT, Start date: 11/29/12 1:52:00, Stop date: 11/29/12 1:52:00 Lortab 500 5 ml, PO, Q6H, PO No Longer [facility] mg-7.5 mg/15 mL PRN, 120 mL, for Active 2012 Medical oral elixir pain, Center Substitution Allowed, Maintenance, ELIX Phenergan 25 mg 1 supp, MT, Q6H, MT Active [facility] rectal PRN, 9 supp, 2012 Medical suppository Nausea & Center Vomiting, Substitution Allowed Phenergan 12.5 mg, 0.5 mL, IVPB No Longer [facility] Route: IVPB, Active 2012 Medical Drug form: INJ, Center ONCE, Dosing Weight 101.364, kg, Priority: STAT, Start date: 11/29/12 0:56:00, Stop date: 11/29/12 0:56:00 Zofran 4 mg, 2 mL, IVP No Longer [facility] Route: IVP, Drug Active 2012 Medical form: INJ, ONCE, Center Dosing Weight 101.364, kg, Priority: STAT, Start date: 11/28/12 23:49:00, Stop date: 11/28/12 23:49:00 Phenergan 12.5 mg, 0.5 mL, IVPB No Longer [facility] Route: IVPB, Active 2012 Medical Drug [...] 5 ml, Route: IVP No Longer [facility] 0.9% IVP, Drug Form: Active 2012 Medical INJ, Dosing Center Weight 101.364, kg, PRN, PRN Line Flush, Start date: 11/28/12 19:29:00, Duration: 30 day, Stop date: 12/28/12 19:28:00 calcium 2,000 mg, 20 mL, IVPB No Longer [facility] gluconate + Route: IVPB, Active 2012 Medical Sodium Chloride ONCE, Dosing Center 0.9% IV 80 mL Weight 103.21, kg, Start date: 11/17/12 11:02:00, Stop date: 11/17/12 11:02:00 magnesium 2 gm, 50 mL, IVPB No Longer [facility] sulfate Route: IVPB, Active 2012 Medical Drug form: INJ, Center Q2H, Dosing Weight 103.21, kg, Total dose=4 gm, Start date: 11/17/12 10:00:00, Duration: 2 doses or times, Stop date: 11/17/12 12:00:00 aspirin 81 mg, 1 tab, PO No Longer [facility] Route: PO, Drug Active 2012 Medical form: ECTAB, Center Daily, Dosing Weight 100, kg, Start date: 11/17/12 9:00:00, Duration: 30 day, Stop date: 12/16/12 9:00:00 simvastatin 40 mg, 1 tab, PO No Longer [facility] Route: PO, Drug Active 2012 Medical form: TAB, Center Daily, Dosing Weight 100, kg, Start date: 11/17/12 9:00:00, Duration: 30 day, Stop date: 12/16/12 9:00:00 prasugrel 10 mg, 1 tab, PO No Longer [facility] Route: PO, Drug Active 2012 Medical form: TAB, Center Daily, Dosing Weight 100, kg, Start date: 11/17/12 9:00:00, Duration: 30 day, Stop date: 12/16/12 9:00:00 NIFEdipine 90 mg, 1 tab, PO No Longer [facility] Route: PO, Drug Active 2012 Medical form: ERTAB, Center Daily, Dosing Weight 100, kg, Start date: 11/17/12 9:00:00, Duration: 30 day, Stop date: 12/16/12 9:00:00 Toprol-XL 100 100 mg, 1 tab, PO No Longer [facility] mg oral tablet, Route: PO, Drug Active 2012 Medical extended form: ERTAB, Center release Daily, Start date: 11/17/12 9:00:00, Duration: 30 day, Stop date: 12/16/12 9:00:00 magnesium oxide 400 mg, 1 tab, PO No Longer [facility] Route: PO, Drug Active 2012 Medical form: TAB, Center Daily, Dosing Weight 100, kg, Start date: 11/17/12 9:00:00, Duration: 30 day, Stop date: 12/16/12 9:00:00 insulin detemir 15 unit, 0.15 SUB-Q No Longer [place] [facility] mL, Route: Active 2012 Medical SUB-Q, Drug Center form: INJ, Daily, Dosing Weight 100, kg, Start date: 11/17/12 9:00:00, Duration: 30 day, Stop date: 12/16/12 9:00:00 Zofran 8 mg, 4 mL, IV No Longer [facility] Route: IV, Drug Active 2012 Medical form: INJ, Q4H, Center Dosing Weight 103.21, kg, PRN as needed for nausea/vomiting, Start date: 11/17/12 8:56:00, Duration: 30 day, Stop date: 12/17/12 8:55:00 Reglan 10 mg 10 mg, 1 tab, PO No Longer [facility] oral tablet Route: PO, Drug Active 2012 Medical form: TAB, Center TID-Before Meals, Dosing Weight 100, kg, Start date: 11/17/12 7:30:00, Duration: 30 day, Stop date: 12/16/12 16:30:00 insulin aspart 4 unit, 0.04 mL, SUB-Q No Longer [facility] Route: SUB-Q, Active 2012 Medical Drug form: SOLN, Center TID-Before Meals, Dosing Weight 100, kg, Start date: 11/17/12 7:30:00, Duration: 30 day, Stop date: 12/16/12 16:30:00 Cymbalta 120 mg, 2 cap, PO No Longer [facility] Route: PO, Drug Active 2012 Medical form: DRC, Center Bedtime, Dosing Weight 100, kg, Start date: 11/16/12 21:00:00, Duration: 30 day, Stop date: 12/15/12 21:00:00 lisinopril 20 mg, 1 tab, PO No Longer [facility] Route: PO, Drug Active 2012 Medical form: TAB, Q12H, Center Dosing Weight 100, kg, Start date: 11/16/12 21:00:00, Duration: 30 day, Stop date: 12/16/12 9:00:00 insulin detemir 12 unit, 0.12 SUB-Q No Longer [facility] mL, Route: Active 2012 Medical SUB-Q, Drug Center form: INJ, Bedtime, Dosing Weight 100, kg, Start date: 11/16/12 21:00:00, Duration: 30 day, Stop date: 12/15/12 21:00:00 clonazepam 0.5 mg, 1 tab, PO No Longer [facility] Route: PO, Drug Active 2012 Medical form: TAB, TID, Center Dosing Weight 100, kg, Start date: 11/16/12 20:30:00, Duration: 30 day, Stop date: 12/16/12 17:00:00 Neutra-Phos 1 pkt, Route: PO No Longer [facility] PO, Drug Form: Active 2012 Medical PDR/REC, Dosing Center Weight 100, kg, TID-Before Meals, Start date: 11/16/12 20:30:00, Duration: 30 day, Stop date: 12/16/12 16:30:00 enoxaparin 40 mg, 0.4 mL, SUB-Q No Longer [place] [facility] Route: SUB-Q, Active 2012 Medical Drug form: INJ, Center [id number], Dosing Weight 100, kg, Start date: 11/16/12 19:00:00, Duration: 30 day, Stop date: 12/15/12 19:00:00 Sodium Chloride 1,000 mL, Rate: IV No Longer [place] 0.9% IV 1,000 125 ml/hr, Active 2012 Medical mL Infuse over: 8 Center hr, Route: IV, kg, Total Volume: 1,000, Start date: 11/16/12 18:10:00, Duration: 30 day, Stop date: 12/16/12 18:09:00 insulin aspart 10 unit, 0.1 mL, SUB-Q No Longer [facility] Route: SUB-Q, Active 2012 Medical Drug form: SOLN, Center TID-Before Meals, Dosing Weight 100, kg, PRN Blood Glucose Results, Start date: 11/16/12 18:10:00, Duration: 30 day, Stop date: 12/16/12 18:09:00 Dextrose 50% 12.5 gm, 25 mL, IVP No Longer [facility] Syringe Route: IVP, Drug Active 2012 Medical Form: INJ, Center Dosing Weight 100, kg, PRN, PRN Blood Glucose Results, Start date: 11/16/12 18:10:00, Duration: 30 day, Stop date: 12/16/12 18:09:00 glucagon 1 mg, Route: IM, IM No Longer [facility] Drug form: Active 2012 Medical PDR/INJ, PRN, Center Dosing Weight 100, kg, PRN Blood Glucose Results, Start date: 11/16/12 18:10:00, Duration: 30 day, Stop date: 12/16/12 18:09:00 [place] 5/325 1 tab, Route: PO No Longer [facility] oral tablet PO, Drug Form: Active 2012 Medical TAB, Dosing Center Weight 100, kg, Q6H, PRN as needed for pain, Start date: 11/16/12 18:07:00, Duration: 30 day, Stop date: 12/16/12 18:06:00 tramadol 50 mg 50 mg, 1 tab, PO No Longer [facility] oral tablet Route: PO, Drug Active 2012 Medical form: TAB, Q4H, Center Dosing Weight 100, kg, PRN as needed for pain, Start date: 11/16/12 18:01:00, Duration: 30 day, Stop date: 12/16/12 18:00:00 promethazine 25 mg, 1 tab, PO No Longer [place] [facility] Route: PO, Drug Active 2012 Medical form: TAB, Q4H, Center Dosing Weight 100, kg, PRN as needed for nausea/vomiting, Start date: 11/16/12 18:01:00, Duration: 30 day, Stop date: 12/16/12 18:00:00 ondansetron 8 mg, 2 tab, PO No Longer [facility] Route: PO, Drug Active 2012 Medical form: TABDIS, Center Q8H, Dosing Weight 100, kg, PRN Nausea & Vomiting, Start date: 11/16/12 18:01:00, Stop date: 12/16/12 18:00:00, nauea ondansetron 8 8 mg, 1 tab, PO, PO Active [place] [facility] mg oral tablet, Q8H, PRN, 2012 Medical disintegrating Dissolve under Center tongue, 10 tab, as needed for nausea/vomiting, Substitution AllowedDissolve under tongue Effient 10 mg 10 mg, 1 tab, PO Active [facility] oral tablet PO, Daily, 30 2012 Medical tab, Center Substitution Allowed, TAB tramadol 50 mg 50 mg, 1 tab, PO Active [place] [facility] oral tablet PO, Q4H, PRN, 60 2012 Medical tab, for pain, Center Substitution Allowed, TAB clonazepam 0.5 0.5 mg, 1 tab, PO Active [place] 11/16[facility] mg oral tablet PO, TID, 2012 Medical Substitution Center Allowed, TAB Reglan 10 mg, Route: IVP No Longer [place] [facility] IVP, ONCE, Active 2012 Medical Dosing Weight Center 100, kg, Priority: STAT, Start date: 11/16/12 16:16:00, Stop date: 11/16/12 16:16:00 magnesium 1 gm, 2 mL, IV No Longer [facility] sulfate Route: IV, Drug Active 2012 Medical form: INJ, ONCE, Center Dosing Weight 100, kg, Priority: STAT, Start date: 11/16/12 15:50:00, Stop date: 11/16/12 15:50:00 Omnipaque 100 mL, Route: IVP No Longer [facility] 350mg/ml IVP, Drug Form: Active 2012 Medical SOLN, Dosing Center Weight 100, kg, ONCALL, STAT, Start date: 11/16/12 15:35:00, Duration: 1 doses or times, Dose=2.2ml/kg, Max [id number] -- "To be infused by Radiology Staff ONLY"Dose=2.2ml/ kg, Max [id number] -- "To be infused by Radiology Staff [...] 1 mg, 0.5 mL, IVP No Longer [place] [facility] Route: IVP, Drug Active 2012 Medical [...] mg, 4 tab, CHEW No Longer [facility] Route: CHEW, Active 2012 Medical Drug form: Center CHEWTAB, ONCE, Dosing Weight 100, kg, Priority: STAT, Start date: 11/16/12 13:29:00, Stop date: 11/16/12 13:29:00 Zofran 8 mg, 4 mL, IVP No Longer [facility] Route: IVP, Drug Active 2012 Medical form: INJ, ONCE, Center Dosing Weight 100, kg, Priority: STAT, Start date: 11/16/12 13:17:00, Stop date: 11/16/12 13:17:00 Saline Flush 5 mL, Route: IVP No Longer [facility] 0.9% IVP, Drug Form: Active 2012 Medical INJ, Dosing Center Weight 100, kg, Q8H, PRN Line Flush, Start date: 11/16/12 13:16:00, Duration: 30 day, Stop date: 12/16/12 13:15:00, Administer at least once every 8 hoursAdminister at least once every 8 hours Reglan 10 mg 10 mg, 1 tab, PO Active [facility] 11/14[facility] oral tablet PO, TID-Before 2012 Medical Meals, PRN, 42 Center tab, nausea, Substitution Allowed, TAB [place] 5/325 1 tab, PO, Q6H, PO Active [facility] 11/14[facility] oral tablet PRN, 10 tab, 2013 Medical Pain, Center Substitution Allowed, Maintenance, TAB ondansetron 8 8 mg, 1 tab, PO, PO Active [facility] 11/14[facility] mg oral tablet, Q8H, PRN, 60 2012 Medical disintegrating tab, 1, 1, Center Nausea, Substitution Allowed, TABDIS insulin detemir 12 unit, 0.12 SUB-Q Active [facility] 11/14[facility] 100 units/mL mL, SUB-Q, 2012 Medical subcutaneous Bedtime, 4 mL, Center solution Substitution Allowed, INJ insulin detemir 15 unit, 0.15 SUB-Q Active [facility] 11/14[facility] 100 units/mL mL, SUB-Q, 2012 Medical subcutaneous Daily, 5 mL, Center solution Substitution Allowed, INJ Zofran 4 mg, 1 tab, PO No Longer [facility]i Route: PO, Drug Active 2012 Medical form: TAB, Q8H, Center Dosing Weight 100, kg, Start date: 11/14/12 16:00:00, Duration: 30 day, Stop date: 12/14/12 8:00:00 Reglan 10 mg 10 mg, 1 tab, PO No Longer [facility] Fei oral tablet Route: PO, Drug Active 2012 Medical form: TAB, Center TID-Before Meals, Dosing Weight 100, kg, Start date: 11/14/12 11:30:00, Duration: 30 day, Stop date: 12/14/12 7:30:00 calcium 2,000 mg, 20 mL, IVPB No Longer [facility] gluconate + Route: IVPB, Active 2012 Medical Sodium Chloride Drug form: INJ, Center 0.9% IV 100 mL Q2H, Dosing Weight 100, kg, Total [id number] mg, Start date: 11/14/12 8:00:00, Duration: 2 doses or times, Stop date: 11/14/12 10:00:00 magnesium 2 gm, 50 mL, IVPB No Longer [facility] Fei sulfate Route: IVPB, Active 2012 Medical [...] 20 mEq, 100 mL, IVPB No Longer [facility] Fei chloride Route: IVPB, Active 2012 Medical Drug form: INJ, Center ONCE, Dosing Weight 100, kg, Total dose=20mEq, Start date: 11/13/12 7:58:00, Duration: 1 doses or times, Stop date: 11/13/12 7:58:00, For K=3.5 - 3.9 mEq/LFor K=3.5 - 3.9 mEq/L calcium 1,000 mg, 10 mL, IVPB No Longer [facility] gluconate + Route: IVPB, Active 2012 Medical Sodium Chloride ONCE, Dosing Center 0.9% IV 50 mL Weight 100, kg, Start date: 11/13/12 7:56:00, Stop date: 11/13/12 7:56:00 Reglan 10 mg, 2 mL, IVP No Longer [facility] Route: IVP, Drug Active 2012 Medical form: INJ, Center Before Meals & Bedtime, Dosing Weight 100, kg, Start date: 11/12/12 16:30:00, Duration: 30 day, Stop date: 12/12/12 11:30:00 [place] 5/325 1 tab, Route: PO No Longer [facility] oral tablet PO, Drug Form: Active jaida 2012 Medical TAB, Dosing Center Weight 100, kg, Q6H, PRN Pain, Start date: 11/12/12 16:07:00, Duration: 30 day, Stop date: 12/12/12 16:06:00 Reglan 10 mg, Route: IVP No Longer [facility] IVP, Q6H, Dosing Active 2012 Medical Weight 100, kg, Center PRN Nausea & Vomiting, Start date: 11/12/12 12:35:00, Duration: 30 day, Stop date: 12/12/12 12:34:00 insulin detemir 15 unit, Route: SUB-Q No Longer [facility] SUB-Q, ONCE, Active 2012 Medical Dosing Weight Center 100, kg, Priority: NOW, Start date: 11/12/12 10:38:00, Stop date: 11/12/12 10:38:00 heparin 7,500 unit, 1.5 SUB-Q No Longer [place] [facility] mL, Route: Active 2012 Medical SUB-Q, [...] Chloride 1,000 mL, Rate: IV No Longer [facility] [place] 0.9% (Bolus) IV 1,000 ml/hr, Active 2012 Medical 1,000 mL Infuse over: 1 Center hr, Route: IV, kg, Total Volume: 1,000, Priority: STAT, Start date: 11/10/12 20:17:00, Duration: 1 doses or times, Stop date: 11/10/12 21:16:00, Bolus DoseBolus Dose insulin detemir 10 unit, 0.1 mL, SUB-Q No Longer Domingojasaleem [facility] Route: SUB-Q, Active 2012 Medical Drug form: INJ, Center ONCE, Dosing Weight 100, kg, Priority: NOW, Start date: 11/10/12 11:40:00, Stop date: 11/10/12 11:40:00 Zofran ODT 4 mg, 1 tab, PO No Longer Juanjo [place] Route: PO, Drug Active 2012 Medical form: TABDIS, Center Q8H, Dosing Weight 100, kg, PRN Nausea, Start date: 11/10/12 11:04:00, Duration: 30 day, Stop date: 12/10/12 11:03:00 Phenergan 12.5 mg, 0.5 mL, IM No Longer Ahmad [place] Route: IM, Drug 2012 Medical form: INJ, PRN, Center Dosing Weight 100, kg, PRN as needed for nausea/vomiting, Start date: 11/10/12 10:00:00, Duration: 30 day, Stop date: 12/10/12 10:59:00 insulin detemir 16 unit, 0.16 SUB-Q No Longer [place] mL, Route: Active 2012 Medical SUB-Q, Drug Center form: INJ, ONCE, Dosing Weight 100, kg, Start date: 11/10/12 0:20:00, Stop date: 11/10/12 0:20:00 NovoLog 6 unit, 0.06 mL, SUB-Q No Longer [facility] Route: SUB-Q, Active 2012 Medical Drug form: SOLN, Center TID-Before Meals, Dosing Weight 100, kg, Start date: 11/09/12 16:30:00, Duration: 30 day, Stop date: 12/09/12 11:30:00 insulin aspart 7 unit, 0.07 mL, SUB-Q No Longer Loida [facility] Route: SUB-Q, Active 2012 Medical Drug form: SOLN, Center ONCE, Dosing Weight 100, kg, Start date: 11/09/12 13:24:00, Stop date: 11/09/12 13:24:00 insulin detemir 20 unit, 0.2 mL, SUB-Q No Longer [facility] Route: SUB-Q, Active 2012 Medical Drug form: INJ, Center Daily, Dosing Weight 100, kg, Start date: 11/09/12 9:00:00, Duration: 30 day, Stop date: 12/08/12 9:00:00 morphine 1 mg, 0.5 mL, IV No Longer [facility] Sulfate Route: IV, Drug Active 2012 Medical form: INJ, ONCE, Center Dosing Weight 100, kg, Start date: 11/09/12 5:28:00, Stop date: 11/09/12 5:28:00 insulin detemir 12 unit, 0.12 SUB-Q No Longer Olejarski [facility] mL, Route: Active 2012 Medical SUB-Q, Drug Center form: INJ, Bedtime, Dosing Weight 100, kg, Start date: 11/08/12 21:00:00, Stop date: 12/07/12 21:00:00 morphine 2 mg, 1 mL, IVP No Longer [place] [facility] Sulfate Route: IVP, Drug Active 2012 Medical form: INJ, ONCE, Center Dosing Weight 100, kg, Start date: 11/08/12 18:34:00, Stop date: 11/08/12 18:34:00 ampicillin + 1,500 mg, Route: IVPB No Longer [facility] Sodium Chloride IVPB, Drug form: Active 2012 Medical 0.9% IV 100 mL PDR/INJ, [id number], Center Dosing Weight 100, kg, Start date: 11/08/12 18:00:00, Duration: 30 day, Stop date: 12/08/12 12:00:00 ciprofloxacin 500 mg, 1 tab, PO No Longer [place] [facility] Route: PO, Drug Active 2012 Medical form: TAB, Center [id number], Dosing Weight 100, kg, Start date: 11/08/12 [...] 40 mg, Route: IVP No Longer [facility] [facility] IVP, Drug form: Active 2012 Medical INJ, Before Center Breakfast, Dosing Weight 100, kg, Start date: 11/07/12 7:30:00, Duration: 30 day, Stop date: 12/06/12 7:30:00 insulin aspart 10 unit, 0.1 mL, SUB-Q No Longer Ahmad [facility] Route: SUB-Q, 2012 Medical Drug form: SOLN, Center ONCE, Dosing Weight 100, kg, Start date: 11/06/12 13:32:00, Stop date: 11/06/12 13:32:00 adenosine 84 mg, Route: IVP No Longer Ahmad [facility] IVP, ONCE, 2012 Medical Dosing Weight Center 100, kg, Priority: Routine, Start date: 11/06/12 10:20:00, Stop date: 11/06/12 10:20:00 Insulin regular 10 unit, 0.1 mL, SUB-Q No Longer [place] [facility] Route: SUB-Q, 2012 Medical Drug form: SOLN, Center ONCE, Dosing Weight 100, kg, Start date: 11/06/12 9:47:00, Stop date: 11/06/12 9:47:00 insulin aspart 10 unit, 0.1 mL, SUB-Q No Longer [place] [facility] Route: SUB-Q, 2012 Medical Drug form: SOLN, Center ONCE, Dosing Weight 100, kg, Start date: 11/06/12 9:43:00, Stop date: 11/06/12 9:43:00 Lactated 1,000 mL, Rate: IV No Longer [place] (Bolus) 1,000 ml/hr, Active 2012 Medical IV 1,000 mL Infuse over: 1 Center hr, Route: IV, kg, Total Volume: 1,000, Bolus Dose, Priority: STAT, Start date: 11/06/12 9:14:00, Duration: 1 doses or times, Stop date: 11/06/12 10:13:00 Insulin regular 9 unit, 0.09 mL, SUB-Q No Longer [facility] Route: SUB-Q, Active 2012 Medical Drug [...] SUB-Q, Active 2012 Medical Drug form: SOLN, [place] TID-Before Meals, Dosing Weight 100, kg, Start date: 11/06/12 7:30:00, Duration: 30 day, Stop date: 12/05/12 16:30:00 metoclopramide 10 mg, 2 mL, IVP No Longer [facility] Route: IVP, Drug Active 2012 Medical form: INJ, Q6H, Center Dosing Weight 100, kg, PRN Nausea & Vomiting, Start date: 11/06/12 1:49:00, Duration: 30 day, Stop date: 12/06/12 1:48:00 Benadryl 25 mg, 0.5 mL, IV No Longer [place] [facility] Route: IV, Drug Active 2012 Medical form: INJ, Q4H, Center Dosing Weight 100, kg, PRN as needed for nausea/vomiting, Start date: 11/06/12 1:44:00, Duration: 30 day, Stop date: 12/06/12 1:43:00 Phenergan 12.5 mg, 0.5 mL, IVPB No Longer [place] [facility] Route: IVPB, Active 2012 Medical Drug form: INJ, Center Q6H, Dosing Weight 100, kg, PRN Nausea & Vomiting, Start date: 11/06/12 1:43:00, Stop date: 12/06/12 1:42:00 Benadryl 25 mg, 1 cap, PO No Longer [place] [facility] Route: PO, Drug Active 2012 Medical form: CAP, TID, Center Dosing Weight 100, kg, PRN Nausea, Start date: 11/06/12 0:31:00, Duration: 30 day, Stop date: 12/06/12 0:30:00 labetalol 20 mg, 4 mL, IVP No Longer [place] [facility] Route: IVP, Drug Active 2012 Medical form: INJ, ONCE, Center Dosing Weight 100, kg, Start date: 11/06/12 0:25:00, Stop date: 11/06/12 0:25:00 simvastatin 40 mg, 1 tab, PO No Longer [place] [facility] Route: PO, Drug Active 2012 Medical form: TAB, Center Bedtime, Dosing Weight 100, kg, Start date: 11/05/12 23:00:00, Duration: 30 day, Stop date: 12/05/12 21:00:00 lisinopril 20 mg, 1 tab, PO No Longer [place] [facility] Route: PO, Drug Active 2012 Medical form: TAB, Q12H, Center Dosing Weight 100, kg, Start date: 11/05/12 23:00:00, Duration: 30 day, Stop date: 12/05/12 21:00:00 insulin detemir 20 unit, 0.2 mL, SUB-Q No Longer Olejarski [facility] Route: SUB-Q, Active 2012 Medical Drug form: INJ, Center Q12H, Dosing Weight 100, kg, Start date: 11/05/12 23:00:00, Stop date: 12/05/12 21:00:00 magnesium oxide 400 mg, 1 tab, PO Active [place] 400 mg oral PO, Daily, 2012 Medical tablet tab, Center Substitution Allowed, TAB metoprolol 100 100 mg, 1 tab, PO Active [facility] mg oral tablet, PO, Daily, 30 2012 Medical extended tab, Center release Substitution Allowed NIFEdipine 90 90 mg, 1 tab, PO Active [facility] mg oral tablet, PO, Daily, 30 2012 Medical extended tab, Center release Substitution Allowed, ERTAB prasugrel 10 mg 10 mg, 1 tab, PO Active [facility] oral tablet PO, Daily, 2012 Medical tab, Center Substitution Allowed, TAB Cymbalta 60 mg, Daily, Active [facility] Substitution 2012 Medical Allowed Center tramadol 50 mg 50 mg, 1 tab, PO No Longer [place] [facility] oral tablet Route: PO, Drug Active 2012 Medical form: TAB, Q4H, Center Dosing Weight 100, kg, PRN For Pain, Start date: 11/05/12 22:39:00, Duration: 30 day, Stop date: 12/05/12 22:38:00 promethazine 25 mg, 1 tab, PO No Longer [place] [facility] Route: PO, Drug Active 2012 Medical form: TAB, Q6H, Center Dosing Weight 100, kg, PRN as needed for nausea/vomiting, Start date: 11/05/12 22:39:00, Duration: 30 day, Stop date: 12/05/12 22:38:00 Phenergan 25 mg, 1 tab, PO No Longer [place] [facility] Route: PO, Drug Active 2012 Medical form: TAB, Q4H, Center Dosing Weight 104.545, kg, PRN Nausea & Vomiting, Start date: 11/05/12 22:33:00, Duration: 30 day, Stop date: 12/05/12 22:32:00 Zofran 8 mg, 4 mL, IV No Longer [place] Route: IV, Drug Active 2012 Medical form: INJ, Q8H, Center Dosing Weight 104.545, kg, PRN Nausea, Start date: 11/05/12 22:32:00, Duration: 30 day, Stop date: 12/05/12 22:31:00 Saline Flush 5 ml, Route: IVP No Longer [place] 0.9% IVP, Drug Form: Active 2012 Medical INJ, Dosing Center Weight 104.545, kg, PRN, PRN Line Flush, Start date: 11/05/12 22:14:00, Duration: 30 day, Stop date: 12/05/12 23:13:00 Sodium Chloride 500 mL, Rate: IV No Longer [place] 0.9% (Bolus) IV 2,000 ml/hr, Active 2012 Medical 500 mL Infuse over: 15 Center minutes, Route: IV, kg, Total Volume: 500, Priority: STAT, Start date: 11/05/12 22:14:00, Duration: 1 doses or times, Stop date: 11/05/12 22:28:00 nitroglycerin 0.4 mg, 1 tab, SL No Longer [place] [facility] SL Tab Route: SL, Drug 2012 Medical form: TAB, Center Q5Min, Dosing Weight 104.545, kg, PRN Chest Pain, Start date: 11/05/12 22:14:00, Duration: 3 doses or times, Stop date: Limited # of times Phenergan 12.5 mg, Route: IVPB No Longer [place]an [place] IVPB, ONCE, Active 2012 Medical Dosing Weight Center 104.545, kg, Priority: STAT, Start date: 11/05/12 22:05:00, Stop date: 11/05/12 22:05:00 Phenergan 12.5 mg, 0.5 mL, IVPB No Longer Dilan [facility] Route: IVPB, Active 2012 Medical Drug form: INJ, Center ONCE, Dosing Weight 104.545, kg, Priority: STAT, Start date: 11/05/12 21:08:00, Stop date: 11/05/12 21:08:00 carvedilol 12.5 mg, 1 tab, PO No Longer Dilan [facility] Route: PO, Drug Active 2012 Medical form: TAB, ONCE, Center Dosing Weight 104.545, kg, Start date: 11/05/12 19:20:00, Stop date: 11/05/12 19:20:00 Effient 10 mg, 1 tab, PO No Longer Dilan [facility] Route: PO, Drug Active 2012 Medical form: TAB, ONCE, Center Dosing Weight 104.545, kg, Start date: 11/05/12 19:16:00, Stop date: 11/05/12 19:16:00 ondansetron 4 mg, 2 mL, IVP No Longer Dilan [facility] Route: IVP, Drug Active 2012 Medical form: INJ, ONCE, Center Dosing Weight 104.545, kg, Priority: STAT, Start date: 11/05/12 19:14:00, Stop date: 11/05/12 19:14:00 aspirin 324 mg, 4 tab, PO No Longer Dilan [facility] Route: PO, Drug Active 2012 Medical form: [place], Center ONCE, Dosing Weight 104.545, kg, Priority: STAT, Start date: 11/05/12 19:14:00, Stop date: 11/05/12 19:14:00 Saline Flush 5 mL, Route: IVP No Longer Dilan [facility] 0.9% IVP, Drug Form: Active 2012 [...] detemir 16 unit, 0.16 SUB-Q No Longer [place] mL, Route: Active 2012 Medical SUB-Q, Drug Center form: INJ, Q12H, Dosing Weight 78.2, kg, Start date: 10/31/12 21:00:00, Duration: 30 day, Stop date: 11/30/12 9:00:00 insulin aspart 4 unit, 0.04 mL, SUB-Q Active [place] 100 units/mL SUB-Q, 2012 Medical subcutaneous TID-Before [place] solution Meals, 1 vial, 2, 2, Substitution Allowed, SOLN insulin detemir 16 unit, 0.16 SUB-Q Active [facility] 100 units/mL mL, SUB-Q, Q12H, 2012 Medical subcutaneous 1 vial, 2, 2, Center solution Substitution Allowed, INJ tramadol 50 mg 50 mg, 1 tab, PO Active [place] oral tablet PO, Q4H, PRN, 30 2012 Medical tab, as needed Center for pain, Substitution Allowed, TAB simvastatin 40 40 mg, 1 tab, PO Active [place] mg oral tablet PO, Bedtime, 30 2012 Medical tab, 1, 1, Center Substitution Allowed, Maintenance, TAB promethazine 25 25 mg, 1 tab, PO Active [place] mg oral tablet PO, Q6H, PRN, 60 2012 Medical tab, 1, 1, Center Nausea & Vomiting, Substitution Allowed, TAB prasugrel 10 mg 10 mg, 1 tab, PO Active [place] oral tablet PO, Daily, 30 2012 Medical tab, 1, 1, Center Substitution Allowed, TAB ondansetron 8 8 mg, 1 tab, PO, PO Active [place] 10/31/ [place] mg oral tablet, Q8H, PRN, 60 2012 Medical disintegrating tab, 1, 1, Center Nausea, Substitution Allowed, TABDIS NIFEdipine 90 90 mg, 1 tab, PO Active [place] 10/31/ [place] mg oral tablet, PO, Daily, 30 2012 Medical extended tab, 1, 1, Center release Substitution Allowed, ERTAB Toprol-XL 100 100 mg, 1 tab, PO Active [place] 10/31/ [place] mg oral tablet, PO, Daily, 30 2012 Medical extended tab, 1, 1, Center release Substitution Allowed, ERTAB magnesium oxide 400 mg, 1 tab, PO Active [place] 10/31/ [place] 400 mg oral PO, Daily, 30 2012 Medical tablet tab, 1, 1, Center Substitution Allowed, TAB lisinopril 20 20 mg, 1 tab, PO Active [place] 10/31/ [place] mg oral tablet PO, Q12H, 60 2012 Medical tab, 1, 1, Center Substitution Allowed, TAB aspirin 81 mg 81 mg, 1 tab, PO Active [place] [facility] tablet, enteric PO, Daily, 30 2012 Medical coated tab, 1, 1, Center Substitution Allowed, ECTAB insulin aspart 6 unit, 0.06 mL, SUB-Q No Longer [place] Route: SUB-Q, Active 2012 Medical Drug form: SOLN, [place] TID-Before Meals, Dosing Weight 78.2, kg, PRN [...] 50 mg, 1 tab, PO No Longer [place] oral tablet Route: PO, Drug Active 2012 Medical form: TAB, Q4H, Center Dosing Weight 78.2, kg, PRN as needed for pain, Start date: 10/29/12 9:45:00, Duration: 30 day, Stop date: 11/28/12 9:44:00 Toradol 15 15 mg, 0.5 mL, IV No Longer [place] [facility] mg/mL Route: IV, Drug Active 2012 Medical injectable form: INJ, ONCE, Center solution Dosing Weight 78.2, kg, Start date: 10/29/12 6:54:00, Stop date: 10/29/12 6:54:00 Toradol 15 15 mg, 0.5 mL, IV No Longer [place] [facility] mg/mL Route: IV, Drug Active 2012 [...] 20 mg, Route: IVP No Longer [place] 02/22[facility] IVP, Drug form: Active 2012 Medical INJ, ONCE, Center Dosing Weight 78.2, kg, Start date: 10/27/12 19:28:00, Stop date: 10/27/12 19:28:00 labetalol 20 mg, 4 mL, IVP No Longer [place] 10/27[facility] Route: IVP, Drug Active 2012 Medical form: INJ, ONCE, Center Dosing Weight 78.2, kg, Start date: 10/27/12 17:28:00, Stop date: 10/27/12 17:28:00 Benadryl 25 mg, 1 cap, PO No Longer [place] [facility] Route: PO, Drug Active 2012 Medical form: CAP, ONCE, Center Dosing Weight 78.2, kg, Start date: 10/27/12 17:28:00, Stop date: 10/27/12 17:28:00 Reglan 10 mg 10 mg, Route: PO No Longer [place] [facility] oral tablet PO, Drug form: Active 2012 Medical TAB, Before Center Meals & Bedtime, Dosing Weight 78.2, kg, Start date: 10/27/12 16:30:00, Duration: 30 day, Stop date: 11/26/12 11:30:00 Reglan 5 mg, 1 mL, IV No Longer [place] [facility] Route: IV, Drug Active 2012 Medical form: INJ, Q8H, Center Dosing Weight 78.2, kg, Start date: 10/27/12 16:00:00, Duration: 30 day, Stop date: 11/26/12 8:00:00 Reglan 5 mg, 1 mL, IV No Longer [place] [facility] Route: IV, Drug Active 2012 Medical form: INJ, Q8H, Center Dosing Weight 78.2, kg, PRN Nausea, Start date: 10/27/12 13:08:00, Duration: 30 day, Stop date: 11/26/12 13:07:00 lisinopril 20 mg, 1 tab, PO No Longer [place] [facility] Route: PO, Drug Active 2012 Medical form: TAB, Q12H, Center Dosing Weight 78.2, kg, Start date: 10/27/12 10:00:00, Duration: 30 day, Stop date: 11/26/12 9:00:00 ergocalciferol 50,000 IntlUnit, PO No Longer [place] [facility] 1 cap, Route: Active 2012 Medical PO, Drug form: Center CAP, Daily, Dosing Weight 78.2, kg, Start date: 10/27/12 9:00:00, Duration: 4 day, Stop date: 10/30/12 9:00:00 magnesium oxide 400 mg, 1 tab, PO No Longer [place] Route: PO, Drug Active 2012 Medical form: TAB, Center Daily, Dosing Weight 78.2, kg, Start date: 10/27/12 9:00:00, Duration: 30 day, Stop date: 11/25/12 9:00:00 Toprol-XL 100 100 mg, 1 tab, PO No Longer [place] [facility] mg oral tablet, Route: PO, Drug Active 2012 Medical extended form: ERTAB, [place] release Daily, Start date: 10/27/12 9:00:00, Duration: 30 day, Stop date: 11/25/12 9:00:00 insulin aspart 7 unit, Route: SUB-Q No Longer [place] [facility] SUB-Q, Drug Active 2012 Medical form: WHITLloyd [place] TID-Before Meals, Dosing Weight 78.2, kg, Start date: 10/26/12 12:00:00, Duration: 30 day, Stop date: 11/25/12 11:30:00 Insulin regular 10 unit, 0.1 mL, SUB-Q No Longer [place] [facility] Route: SUB-Q, Active 2012 Medical [facility], Dosing Weight 78.2, kg, Start date: 10/26/12 10:32:00, Stop date: 10/26/12 10:32:00 NIFEdipine 90 mg, 1 tab, PO No Longer [place] [facility] extended Route: PO, Drug Active 2012 Medical release form: ERTAB, [place] Daily, Dosing Weight 78.2, kg, Start date: 10/26/12 9:00:00, Duration: 30 day, Stop date: 11/24/12 9:00:00 metoprolol 25 mg, 1 tab, PO No Longer [place] [facility] tartrate Route: PO, Drug Active 2012 Medical form: TAB, Q12H, Center Dosing Weight 78.2, kg, Start date: 10/26/12 9:00:00, Duration: 30 day, Stop date: 11/24/12 21:00:00 Reglan 10 mg, 1 tab, PO No Longer [place] [facility] Route: PO, Drug Active 2012 Medical [...] gm, 50 mL, IVPB No Longer [place] [facility] sulfate Route: IVPB, Active 2012 Medical [...] mg, 1 tab, PO No Longer [place] [facility] Route: PO, Drug Active 2012 Medical form: ERTAB, Center ONCE, Dosing Weight 78.2, kg, Start date: 10/25/12 14:49:00, Stop date: 10/25/12 14:49:00 1/2 NS 1,000 mL 1,000 mL, Rate: IV No Longer [place] 100 ml/hr, Active 2012 Medical Infuse over: 10 Center hr, Route: IV, kg, Total Volume: 1,000, Start date: 10/25/12 13:52:00, Duration: 30 day, Stop date: 11/24/12 13:51:00 atenolol 100 mg, 1 tab, PO No Longer [place] [facility] Route: PO, Drug Active 2012 Medical form: TAB, Center Daily, Dosing Weight 78.2, kg, Start date: 10/25/12 9:00:00, Duration: 30 day, Stop date: 11/23/12 9:00:00 Protonix 40 mg, Route: IVP No Longer [place] [facility] IVP, Drug form: Active 2012 Medical INJ, Daily, Center Dosing Weight 78.2, kg, Start date: 10/25/12 9:00:00, Duration: 30 day, Stop date: 11/23/12 9:00:00 NovoLog FlexPen 6 unit, 0.06 mL, SUB-Q No Longer [place] Route: SUB-Q, 2012 Medical Drug form: SOLN, Center TID-Before Meals, Start date: 10/25/12 7:30:00, Duration: 30 day, Stop date: 11/23/12 16:30:00 insulin lispro 6 unit, Route: SUB-Q No Longer Funez [facility] SUB-Q, 2012 Medical TID-Before Center Meals, Dosing Weight 78.2, kg, Start date: 10/25/12 7:30:00, Duration: 30 day, Stop date: 11/23/12 16:30:00 Lactated 1,000 mL, Rate: IV No Longer Dee Dee Jon [facility] Ringers IV 250 ml/hr, Active 2012 Medical 1,000 mL Infuse over: 4 Center hr, Route: IV, kg, Total Volume: 1,000, Start date: 10/25/12 5:50:00, Duration: 30 day, Stop date: 11/24/12 5:49:00 Lactated 1,000 mL, Rate: [facility] Ring[facility] (Bolus) 100 ml/hr, Active 2012 Medical IV 1,000 mL Infuse over: 10 Center hr, Route: IV, kg, Total Volume: 1,000, Start date: 10/25/12 5:50:00, Duration: 1 doses or times, Stop date: 10/25/12 15:49:00 insulin aspart 9 unit, 0.09 mL, SUB-Q No Longer [place] [facility] Route: SUB-Q, Active 2012 Medical Drug form: SOLN, Center TID-Before Meals, Dosing Weight 78.2, kg, PRN Blood Glucose Results, Start date: 10/25/12 3:53:00, Duration: 30 day, Stop date: 11/24/12 3:52:00 glucagon 1 mg, Route: IM, IM No Longer Funez [facility] Drug form: Active 2012 Medical PDR/INJ, PRN, Center Dosing Weight 78.2, kg, PRN Blood Glucose Results, Start date: 10/25/12 3:53:00, Duration: 30 day, Stop date: 11/24/12 4:52:00 Dextrose 50% 12.5 gm, 25 mL, IVP No Longer Funez [facility] 10/25[facility] Syringe Route: IVP, Drug Active 2012 Medical Form: INJ, Center Dosing Weight 78.2, kg, PRN, PRN Blood Glucose Results, Start date: 10/25/12 3:53:00, Duration: 30 day, Stop date: 11/24/12 4:52:00 Dextrose 50% 25 mL, Route: IVP No Longer Funez [facility] 10/25[facility] Syringe IVP, Dosing Active 2012 Medical Weight 78.2, kg, Center PRN, PRN Blood Glucose Results, Start date: 10/25/12 3:52:00, Duration: 30 day, Stop date: 11/24/12 4:51:00 glucagon 1 mg, Route: IM, IM No Longer Funez [facility] 10/25[facility] PRN, Dosing Active 2012 Medical Weight 78.2, kg, Center PRN Blood Glucose Results, Start date: 10/25/12 3:52:00, Duration: 30 day, Stop date: 11/24/12 4:51:00 Neutra-Phos 2 pkt, Route: PO No Longer Neeru [facility] PO, Drug Form: Active 2012 Medical [...] mg, 1 mL, IVP No Longer [place] [facility] Sulfate Route: IVP, Drug Active 2012 [...] 1 tab, PO No Longer Funez [place] [facility] tartrate Route: PO, Drug Active 2012 Medical form: TAB, Q8H, Center Dosing Weight 78.2, kg, Start date: 10/24/12 16:00:00, Duration: 30 day, Stop date: 11/23/12 8:00:00 clonazepam 0.5 mg, 1 tab, PO No Longer [facility] Route: PO, Drug Active 2012 Medical form: TAB, ONCE, Center Dosing Weight 78.2, kg, Start date: 10/24/12 15:03:00, Stop date: 10/24/12 15:03:00 NIFEdipine 60 mg, 1 tab, PO No Longer [place] [facility] extended Route: PO, Drug Active 2012 [...] 40 mg, 2 tab, PO No Longer [place] Fe[place] Route: PO, Drug Active 2012 Medical [...] mL, Rate: IV No Longer [facility] [place] 150 ml/hr, Active 2012 Medical Injection IV Infuse over: 6.7 Center 1,000 mL hr, Route: IV, kg, Total Volume: 1,000, Start date: 10/24/12 11:50:00, Duration: 30 day, Stop date: 11/23/12 11:49:00 lisinopril 20 mg, 1 tab, PO No Longer [facility] Route: PO, Drug Active 2012 [...] mg, 1 tab, PO No Longer Funez [facility] Fei Route: PO, Drug Active 2012 Medical form: TAB, Center Daily, Dosing Weight 78.2, kg, Priority: NOW, Start date: 10/24/12 10:53:00, Duration: 30 day, Stop date: 11/23/12 9:00:00 potassium 40 mEq, 2 tab, PO No Longer Funez [facility] Fei chloride Route: PO, Drug Active 2012 [...] 24 hr aspirin 200 mg, 1 supp, MT No Longer [place] Fei Route: MT, Drug Active 2012 Medical form: SUPP, Center [...] Duration: 1 doses or times, Dose=2.2ml/kg, Max [id number] -- "To be infused by Radiology Staff ONLY"Dose=2.2ml/ kg, Max felt=[id number] -- "To be infused by Radiology Staff [...] Duration: 1 doses or times, Dose=2.2ml/kg, Max [id number] -- "To be infused by Radiology Staff ONLY"Dose=2.2ml/ kg, Max oiqw=[id number] -- "To be infused by Radiology Staff ONLY" Insulin 100 mL, Rate: IV No Longer [place] [facility] (regular) 0.1units/kg/hour Active 2012 Medical Titrate [...] 1,000 mL, Rate: IV No Longer Isaac [facility] 0.9% IV 1,000 100 ml/hr, Active 2012 Medical mL + M.V.I.-12 Infuse over: Center 10 mL Daily + 10.1 hr, Route: folic acid IV 1 IV, kg, Total mg Daily + Volume: 1,011.2, thiamine IV 1 Start date: 10/23/12 8:41:00, Duration: 3 day, Stop date: 10/26/12 8:40:00 Insulin regular 100 mL, Rate: IVPB No Longer Isaac [facility] 100 unit + Start Insulin Active [...] gm, 50 mL, IVP No Longer [place] Syringe Route: IVP, Drug Active 2012 Medical Form: INJ, Center Dosing Weight 113.636, kg, PRN, PRN Blood Glucose Results, Start date: 10/23/12 8:17:00, Duration: 30 day, Stop date: 11/22/12 9:16:00 normal saline 1,000 mL, Rate: IV No Longer [place] 0.9% IV 1,000 150 ml/hr, Active 2012 Medical mL Infuse over: 6.7 Center hr, Route: IV, kg, Total Volume: 1,000, Start date: 10/23/12 5:07:00, Duration: 30 day, Stop date: 11/22/12 5:06:00 NS (Bolus) IV 1,000 mL, 0 IV No Longer Kristy [facility] ml/hr, Route: Active 2012 Medical IV, Drug Form: Center INJ, Dosing Weight 113.636, kg, ONCE, STAT, Start date: 10/23/12 5:06:00, Duration: 1 doses or times, Stop date: 10/23/12 5:06:00 hydrALAZINE 10 mg, 0.5 mL, IV No Longer Funez Kamel [facility] Route: IV, Drug Active 2012 Medical form: INJ, Q4H, Center Dosing Weight 113.636, kg, PRN Other -See Comment, Start date: 10/23/12 0:38:00, Duration: 30 day, Stop date: 11/22/12 0:37:00, hypertesnion acetaminophen 650 mg, 1 supp, MT No Longer Kristy [place] Route: MT, Drug Active 2012 Medical form: SUPP, Q6H, Center Dosing Weight 113.636, kg, PRN Fever, Start date: 10/23/12 0:37:00, Duration: 30 day, Stop date: 11/22/12 0:36:00 Dilaudid 0.5 mg, 0.25 mL, IV No Longer [place] [facility] Route: IV, Drug Active 2012 Medical form: INJ, Q2H, Center Dosing Weight 113.636, kg, PRN Pain, Start date: 10/23/12 0:37:00, Duration: 30 day, Stop date: 11/22/12 0:36:00 metoprolol 5 5 mg, 5 mL, IVP No Longer Dee Dee Jon [facility] mg/5 ml INJ Route: IVP, Drug Active 2012 Medical form: INJ, Q3H, Center Dosing Weight 113.636, kg, PRN Hypertension, Start date: 10/23/12 0:35:00, Duration: 30 day, Stop date: 11/22/12 0:34:00 Insulin regular 2 unit, 0.02 mL, SUB-Q No Longer Isaac [facility] Route: SUB-Q, Active 2012 Medical Drug form: SOLN, Center Sliding Scale, Dosing Weight 113.636, kg, PRN Blood Glucose Results, Start date: 10/23/12 0:26:00, Duration: 30 day, Stop date: 11/22/12 1:25:00 glucagon 1 mg, Route: IM, IM No Longer [place] Drug form: Active 2012 Medical PDR/INJ, PRN, Center Dosing Weight 113.636, kg, PRN Blood Glucose Results, Start date: 10/23/12 0:26:00, Duration: 30 day, Stop date: 11/22/12 1:25:00 Dextrose 50% 25 gm, 50 mL, IVP No Longer [place] Syringe Route: IVP, Drug Active 2012 Medical Form: INJ, Center Dosing Weight 113.636, kg, PRN, PRN Blood Glucose Results, Start date: 10/23/12 0:26:00, Duration: 30 day, Stop date: 11/22/12 1:25:00 Zofran ODT 8 mg, 1 tab, PO No Longer [place] Route: PO, Drug Active 2012 Medical form: TABDIS, Center Q8H, Dosing Weight 113.636, kg, PRN Nausea, Start date: 10/23/12 0:02:00, Stop date: 11/22/12 0:01:00 heparin 5,000 unit, SUB-Q No Longer [place] Route: SUB-Q, Active 2012 Medical Q8H, Dosing Center Weight 113.636, kg, Start date: 10/23/12 0:00:00, Duration: 30 day, Stop date: 11/21/12 16:00:00 carvedilol 25 Daily, No Longer [place] mg oral tablet Substitution Active 2012 Medical Allowed [place] Diovan HCT 160 1 tab, PO, PO No Longer [place] mg-12.5 mg oral Daily, 30 tab, Active 2012 Medical tablet Substitution Center Allowed, Maintenance, TAB D5W 1/2NS + KCL 1,000 mL, Rate: IV No Longer [place] 20mEq/L 1000ml 150 ml/hr, Active 2012 Medical [...] Duration: 7 day, Stop date: 10/14/12 9:00:00 [place] 325 mg-10 15 mL, Route: PO No Longer Sushila Fei mg / 15 mL oral PO, Drug Form: Active 2012 Medical solution SOLN, Dosing Center Weight 118.2, kg, Q4H, PRN For Pain, Start date: 10/07/12 14:22:00, Duration: 30 day, Stop date: 11/06/12 14:21:00 Diovan 160 mg, 1 tab, PO No Longer Sushlia Fei Route: PO, Drug Active 2012 Medical [...] mEq, 100 mL, IVPB No Longer Bag[place] chloride Route: IVPB, Active 2012 Medical Drug form: INJ, Center ONCE, Dosing Weight 118.2, kg, Total dose=20 mEq, Start date: 10/07/12 7:53:00, Duration: 1 doses or times, Stop date: 10/07/12 7:53:00, For K=3.5 - 3.9 mEq/LFor K=3.5 - 3.9 mEq/L Blistex 1 appl, Route: TOP No Longer [facility] TOP, PRN, Drug Active 2012 Medical form: STIC PRN Center Other -See Comment, Start date: 10/06/12 22:48:00, Duration: 30 day, Stop date: 11/05/12 22:47:00 Blistex Lip Route: TOP, TOP No Longer [facility] [place] Dosing Weight Active 2012 Medical 118.2, kg, [...] mg, 5 mL, IVP No Longer Sushila [facility] mg/5 ml INJ Route: IVP, Drug [...] mg, 1 tab, PO No Longer Sushila [place] Route: PO, Drug Active 2012 Medical form: TAB, Q12H, Center Dosing Weight 118.2, kg, Start date: 10/04/12 21:00:00, Duration: 30 day, Stop date: 11/03/12 9:00:00 [place] 325 mg-10 30 mL, Route: PO No Longer Allenson Fei mg / 15 mL oral PO, Drug Form: Active 2012 Medical solution SOLN, Dosing Center Weight 118.2, kg, Q4H, PRN Pain Score 6-10, Start date: 10/04/12 17:20:00, Duration: 30 day, Stop date: 11/03/12 17:19:00 Diovan 160 mg, 1 tab, PO No Longer Sushila [facility] Route: PO, Drug Active 2012 Medical form: TAB, Center Daily, Dosing Weight 118.2, kg, Start date: 10/04/12 14:00:00, Duration: 30 day, Stop date: 11/03/12 9:00:00 Trandate 10 mg, 2 mL, IVP No Longer [place] Route: IVP, Drug Active 2012 Medical form: INJ, Q4H, Center PRN Elevated BP, Start date: 10/04/12 9:05:00, Duration: 30 day, Stop date: 11/03/12 9:04:00 hydrALAZINE 20 mg, 1 mL, IVP No Longer [place] [facility] Route: IVP, Drug Active 2012 Medical [...] 25 gm, 50 mL, IVP No Longer [facility] Fei Syringe Route: IVP, Drug Active 2012 Medical Form: INJ, Center Dosing Weight 118.2, kg, PRN, PRN Blood Glucose Results, Start date: 10/04/12 0:40:00, Duration: 30 day, Stop date: 11/03/12 0:39:00 glucagon 1 mg, Route: IM, IM No Longer [facility] Drug form: Active 2012 Medical PDR/INJ, PRN, Center Dosing Weight 118.2, kg, PRN Blood Glucose Results, Start date: 10/04/12 0:40:00, Duration: 30 day, Stop date: 11/03/12 0:39:00 Ofirmev 1,000 mg, 100 IV No Longer [facility] mL, Route: IV, Active 2012 Medical Drug form: INJ, Center Q6H, Start date: 10/03/12 18:00:00, Duration: 4 doses or times, Stop date: 10/04/12 12:00:00 Mefoxin 2 gm, Route: IVPB No Longer [facility] IVPB, Drug form: Active 2012 Medical INJ, ABXQ8H, [place] Start date: 10/03/12 16:00:00, Duration: 2 doses or times, Stop date: 10/04/12 0:00:00 Lopressor 5 mg, 5 mL, IV No Longer Low [facility] Route: IV, Drug Active 2012 Medical form: INJ, Q6H, Center Start date: 10/03/12 16:00:00, Duration: 30 day, Stop date: 11/02/12 10:00:00 Humulin R 100 10 unit, 0.1 mL, SUB-Q No Longer [facility] units/mL Route: SUB-Q, Active 2012 Medical injectable Drug form: [facility] solution TID-Before Meals, PRN Blood Glucose Results, Start date: 10/03/12 14:30:00, Duration: 30 day, Stop date: 11/02/12 14:29:00 Dextrose 50% in 50 mL, Route: IV No Longer [facility] 10/03[facility] Water IV IV, Start date: Active 2012 Medical 10/03/12 [place] 14:29:00, Duration: 30 day, Stop date: 11/02/12 14:28:00, PRN Blood Glucose Results Dextrose 50% in 25 mL, Route: IVP No Longer [facility] 10/03[facility] Water IV IVP, Start date: Active 2012 Medical 10/03/12 [place] 14:28:00, Duration: 30 day, Stop date: 11/02/12 14:27:00, PRN Blood Glucose Results Zofran 4 mg, 2 mL, IVP No Longer Low [place] Route: IVP, Drug Active 2012 Medical form: INJ, Q8H, Center PRN Nausea, Start date: 10/03/12 14:22:00, Duration: 30 day, Stop date: 11/02/12 14:21:00 naloxone 0.2 mg, 0.5 mL, IV No Longer [facility] [place] Route: IV, Drug Active 2012 Medical form: INJ, PRN, Center PRN Narcotic Reversal, Start date: 10/03/12 14:21:00, Duration: 30 day, Stop date: 11/02/12 14:20:00 hydromorphone IV, Start date: IV No Longer [facility] [place] 15 mg 10/03/12 Active 2012 Medical 14:19:00, Center Duration: 30, 30 ml, 118.2 Phenergan 12.5 mg, 0.5 mL, IVPB No Longer [facility] [place] Route: IVPB, Active 2012 Medical Drug form: INJ, Center Q4H, PRN Nausea, Start date: 10/03/12 14:08:00, Duration: 30 day, Stop date: 11/02/12 14:07:00 Phenergan 12.5 mg, 0.5 mL, IM No Longer [facility] [place] Route: IM, Drug Active 2012 Medical form: INJ, Q4H, Center PRN Nausea, Start date: 10/03/12 14:07:00, Duration: 30 day, Stop date: 11/02/12 14:06:00 Benadryl 25 mg, 0.5 mL, IM No Longer [facility] [place] Route: IM, Drug Active 2012 Medical form: INJ, Center Bedtime, PRN Insomnia, Start date: 10/03/12 14:04:00, Duration: 30 day, Stop date: 11/02/12 14:03:00 Lactated 1,000 mL, Rate: IV No Longer [place] 125 ml/hr, Active 2012 Medical Injection IV Infuse over: 8 Center 1,000 mL hr, Route: IV, kg, Total Volume: 1,000, Start date: 10/03/12 14:00:00, Duration: 30 day, Stop date: 11/02/12 13:59:00 ondansetron 4 mg, 2 mL, IVP No Longer [facility] Route: IVP, Drug Active 2012 Medical [...] mg, 0.25 mL, IVP No Longer Jose [facility] Route: IVP, Drug Active 2012 Medical [...] 2 gm, Route: IVPB No Longer [place] [place] IVPB, Drug form: Active 2012 Medical INJ, PRE OP, Center Priority: STAT, Start date: 10/03/12 5:50:00, Duration: 1 day, Stop date: 10/04/12 5:49:00 Mobic 15 mg 10 mg, PO, PO Active [place] oral tablet Daily, 30 tab, 2012 Medical Substitution Center Allowed, TAB Zetia Daily, Active [facility] Substitution 2011 Medical Allowed Center Klor-Con 10 10 mEq, 1 tab, PO Active [facility] oral tablet, PO, Daily, 180 2011 Medical extended tab, Center release Substitution Allowed, ERTAB ferrous 324 mg, 1 tab, PO Active [facility] gluconate 324 PO, Daily, 100 2011 Medical mg oral tablet tab, Center Substitution Allowed, TAB Lasix 40 mg 40 mg, 1 tab, PO Active [facility] oral tablet PO, Daily, 30 2011 Medical tab, Center Substitution Allowed, TAB Cymbalta 60 mg 60 mg, 1 cap, PO Active [facility] oral delayed PO, BID, 30 cap, 2011 Medical release capsule Substitution Center Allowed, ECCAP Crestor 20 mg 20 mg, 1 tab, PO Active [facility] oral tablet PO, Daily, 30 2011 Medical tab, Center Substitution Allowed, TAB Flexeril 10 mg 10 mg, 1 tab, PO Active [facility] oral tablet PO, TID, PRN, 30 2011 Medical tab, for spasm, Center Substitution Allowed, TAB Lyrica 150 mg 150 mg, 1 cap, PO Active [facility] oral capsule PO, BID, 90 cap, 2011 Medical Substitution Center Allowed, CAP Klonopin 0.5 mg 0.5 mg, 1 tab, PO Active [place] oral tablet PO, TID, 2011 Medical Substitution Center Allowed, TAB Diovan 160 mg 160 mg, 1 tab, PO Active [facility] oral tablet PO, Daily, 30 2011 [...] Allowed NovoLog Substitution Active [place] Allowed 2011 [facility] Center Levemir FlexPen Substitution Active [facility] Allowed 2011 [facility] Allergies, Adverse Reactions, Alerts Substance Category Reaction Severity Reaction Status Date Comments Source type Reported NKDA drug Allergy Active [facility] Immunizations Immunization Date Given Site Status Last Updated Comments Source influenza virus 07/14/2013 completed [facility] vaccine, [facility] inactivated Center pneumococcal 07/14/2013 completed [facility] 23-valent vaccine [facility] Results Order Name Results Value Reference Date Interpretation Comments Source Range CHEMISTRY U Preg Negative Negative 08/13 Normal [facility] (08/13/2013 13:30:00) [place] URINALYSIS UA RBC 0-2 /HPF 0 - 2 08/13 Normal [facility]2012 [facility] URINALYSIS UA WBC 3-5 /HPF None Seen 08/13 Normal [facility] URINALYSIS UA Sq Epi Few /LPF Few 08/13 Normal [facility]2012 [facility] URINALYSIS Micro? Performed 08/13 Normal [facility] (08/13/2013 13:30:00) Center URINALYSIS UA Hyal Cast 0-2 0 - 2 08/13 Normal [facility] (08/13/2013 13:30:00) Center URINALYSIS UA Glucose 250 mg/dL Negative 08/13 [facility] URINALYSIS UA Blood Negative Negative 08/13 Normal [facility] (08/13/2013 13:30:00) Center URINALYSIS UA Ketones >=80 mg/dL Negative 08/13 [facility] URINALYSIS UA 0.2 EU/dL 0.1 - 1.0 08/13 Normal [facility] Urobilinogen /2012 [facility] URINALYSIS UA Nitrite Negative Negative 08/13 Normal [facility] (08/13/2013 13:30:00) [place] URINALYSIS UA Bili Small 1 Negative 08/13 ABN 1Result Comment: Interpret positive bilirubin results with caution. Confirmatory testing not possible due to the unavailability of reagent. Correlation with Medical *ABN* serum chemistry results recommended. [place] (08/13/2013 13:30:00) URINALYSIS UA Leuk Est Negative Negative 08/13 Normal [facility] (08/13/2013 13:30:00) [place] URINALYSIS UA Protein Negative Negative 08/13 Normal [facility] (08/13/2013 13:30:00) [place] URINALYSIS UA pH 6.0 5.0 - 8.0 08/13 Normal [facility] URINALYSIS UA Spec Grav 1.020 <=1.030 08/13 Normal [facility] URINALYSIS UA Color Yellow Yellow 08/13 Medical *NA* [place] (08/13/2013 13:30:00) URINALYSIS UA Turbidity Clear Clear 08/13 Normal [facility] (08/13/2013 13:30:00) [place] CHEMISTRY BE Mark 1 mMol/L -2-2 - 2 08/13 Normal [facility] CHEMISTRY pO2 Mark 29 mm[Hg] 20 - 49 08/13 Normal [facility] CHEMISTRY O2 Sat Mark 55.9 % 40.0 - 08/13 Normal [facility] 70.0 [facility] CHEMISTRY Temp Mark 37.0 Abby 08/13 [facility] CHEMISTRY HCO3 Mark 26 mMol/L 22 - 26 08/13 Normal [facility] CHEMISTRY pCO2 Mark 41 mm[Hg] 38 - 52 08/13 Normal [facility] CHEMISTRY pH Mark 7.41 7.28 - 08/13 Normal [facility] 7.42 [facility] CHEMISTRY eGFR 60 08/13 2Result Comment: The eGFR is calculated using the CKD-EPI formula. In most young, healthy individuals the eGFR will be >90 mL/ min/1.73m2. The eGFR declines with age. An eGFR of 60-89 may be normal in [facility] mL/min/1.7 some populations, particularly the elderly, for whom the CKD-EPI formula has not been extensively validated. Use of the eGFR is not recommended in the following populations: [address] Individuals with unstable creatinine concentrations, including [...] 25 meq/L 24 - 32 08/13 Normal [facility] CHEMISTRY Chloride Lvl 98 meq/L 95 - 109 08/13 Normal [facility] CHEMISTRY BUN 9 mg/dL 7 - 22 08/13 Normal [facility]2012 [facility] CHEMISTRY Calcium Lvl 9.1 mg/dL 8.5 - 10.5 08/13 Normal [facility]2012 [facility] CHEMISTRY Glucose Lvl 301 mg/dL 70 - 99 08/13 [place] 3Interpretive Data: Adult reference range values reflect the clinical guidelines of the [place] [employer]. [facility] CHEMISTRY Potassium Lvl 3.8 meq/L 3.5 - 5.1 08/13 Normal [facility] CHEMISTRY Sodium Lvl 134 meq/L 135 - 145 08/13 LOW [facility]2012 [facility] CHEMISTRY Creatinine 1.1 mg/dL 0.5 - 1.4 08/13 Normal [facility] CHEMISTRY Bili Total 0.6 mg/dL 0.2 - 1.3 08/13 Normal [facility] CHEMISTRY ASPARTATE 17 unit/L 0 - 37 08/13 Normal [facility] TRANSAMINASE [facility] CHEMISTRY ALANINE 22 unit/L 0 - 65 08/13 Normal [facility] AMINOTRANSFER [facility] CHEMISTRY Albumin Lvl 3.5 g/dL 3.5 - 5.0 08/13 Normal [facility] CHEMISTRY Alk Phos 130 unit/L 39 - 136 08/13 Normal [facility] CHEMISTRY Total Protein 7.8 g/dL 6.4 - 8.4 08/13 Normal [facility] CHEMISTRY B/C Ratio 8 6 - 25 08/13 Normal [facility] CHEMISTRY AGAP 14.8 meq/L 10.0 - 12 Normal [facility] 20.0 [facility] CHEMISTRY Globulin 4.3 g/dL 2.0 - 4.0 HI [facility] CHEMISTRY A/G Ratio 0.8 0.7 - 1.6 12 Normal [facility] HEMATOLOGY Monocytes # 0.8 K/CMM 0.0 - 0.8 12 Normal [facility] HEMATOLOGY Eosinophils # 0.0 K/CMM 0.0 - 0.5 08/13 Normal [facility] HEMATOLOGY Basophils # 0.0 K/CMM 0.0 - 0.2 08/13 Normal [facility] HEMATOLOGY Basophils 0.1 % 0.0 - 1.0 08/13 Normal [facility] HEMATOLOGY Lymphocytes # 1.4 K/CMM 1.0 - 5.5 08/13 [facility] HEMATOLOGY Segs-Bands # 10.5 K/CMM 1.5 - 8.1 08/13 [facility] HEMATOLOGY Monocytes 6.3 % 2.0 - 12.0 08/13 Normal [facility] HEMATOLOGY Eosinophils 0.2 % 0.0 - 4.0 08/13 Normal [facility] HEMATOLOGY Lymphocytes 11.3 % 20.0 - 1208 LOW [facility] 40.0 [facility] HEMATOLOGY Segs 82.1 % 45.0 - 12/08 [facility] 75.0 [facility] HEMATOLOGY WBC X 10x3 12.7 K/CMM 3.7 - 10.4 08/13 [facility] HEMATOLOGY Hct 37.0 % 36.0 - 12/08 Normal [facility] 48.0 [facility] HEMATOLOGY RBC X 10x6 4.36 M/CMM 4.20 - 12/08 Normal [facility] 5.40 /2012 [facility] HEMATOLOGY Hgb 12.6 g/dL 12.0 - 12/08 Normal [facility] 16.0 /2012 [facility] HEMATOLOGY MCV 84.8 fL 81.0 - 1208 [facility] 99.0 /2012 [facility] HEMATOLOGY MCH 28.8 pg 27.0 - 12 [facility] 31.0 /2012 [facility] HEMATOLOGY MCHC 34.0 g/dL 32.0 - 12/08 Normal [facility] 36.0 [facility] HEMATOLOGY Platelet 238 K/CMM 133 - 450 12 [facility] HEMATOLOGY MPV 9.5 fL 7.4 - 10.4 08/13 [facility] HEMATOLOGY RDW 13.1 % 11.5 - 08/13 Normal [facility] 14. Medical Center BEDSIDE Gluc POC Notify 07/26 [facility] GLUCOSE Comment 1 RN/ /2012 Medical TESTING Center BEDSIDE Glucose POC 274 mg/dL 70 - 99 07/26 [place] 1Interpretive [facility] GLUCOSE Data: Medical TESTING Center Upper Reportable Limit: 200 mg/dL. BEDSIDE Glucose POC 146 mg/dL 70 - 99 07/15 HI 2Interpretive [facility] GLUCOSE Data: Medical TESTING Center Upper Reportable Limit: 200 mg/dL. BEDSIDE Gluc POC Notify 07/15 [facility] GLUCOSE Comment 1 RN/ /2012 Medical TESTING Center BEDSIDE Glucose POC 140 mg/dL 70 - 99 07/14 [place] 3Interpretive [facility] GLUCOSE Data: Medical TESTING Center Upper Reportable Limit: 200 mg/dL. BEDSIDE Gluc POC Notify 07/14 [facility] GLUCOSE Comment 1 RN/ [facility] TESTING Center BEDSIDE Gluc POC Notify 07/14 [facility] GLUCOSE Comment 1 RN/ /2012 Medical TESTING Center BEDSIDE Glucose POC 44 mg/dL 70 - 99 07/14 LOW 4Interpretive [facility] GLUCOSE Data: Medical TESTING Center Upper Reportable Limit: 200 mg/dL. IMMUNOLOGY [place]-HIV Negative Negative 07/14 [facility] 09/07 [facility] *NA* Center (07/14/2013 00:27:00) IMMUNOLOGY [place]-Hep C Negative Negative 07/14 [facility] (07/14/2013 00:27:00) CHEMISTRY eGFR 109 07/13 5Result Comment: The eGFR is calculated using the CKD-EPI formula. In most young, healthy individuals the eGFR will be >90 mL/ min/1.73m2. The eGFR declines with age. An eGFR of 60-89 may be normal in [facility] mL/min/1. some populations, particularly the elderly, [...] 135 meq/L 135 - 145 07/13 Normal [facility] CHEMISTRY Chloride Lvl 95 meq/L 95 - 109 07/13 Normal [facility] CHEMISTRY AGAP 16.5 meq/L 10.0 - 07/13 Normal [facility] 20.0 [facility] CHEMISTRY Glucose Lvl 322 mg/dL 70 - 99 07/13 [place] 8Interpretive Data: Adult reference range values reflect the clinical guidelines of the [place] [employer]. [facility] CHEMISTRY Creatinine 0.6 mg/dL 0.5 - 1.4 07/13 Normal [facility] CHEMISTRY BUN 6 mg/dL 7 - 22 07/13 LOW 2012 [facility] CHEMISTRY Calcium Lvl 8.6 mg/dL 8.5 - 10.5 07/13 Normal [facility] CHEMISTRY CO2 27 meq/L 24 - 32 07/13 Normal [facility] CHEMISTRY Potassium Lvl 3.5 meq/L 3.5 - 5.1 07/13 Normal [facility]2012 [facility] INFECTIOUS C difficile Negative 1 Negative 07/13 Normal 1Interpretive Data: [employer] Clostridium difficile assay utilizes loop-mediated isothermal DNA amplification (LAMP) technology to detect a 204 bp region of the tcdA gene within the PaLoc gene [facility] segment present in all known toxigenic C. difficile strains. [facility] (07/13/2013 00:00:59) [place] The assay utilizes FDA cleared IVD reagents. Performance characteristics have been verified by the [facility] within the [facility]. The [facility] is authorized under the Clinical Laboratory Improvement Amendment of 1988 (CLIA-88) to perform high complexity testing. CHEMISTRY Lactic Acid 1.9 mMol/L 0.5 - 2.2 07/12 Normal [facility] CHEMISTRY eGFR 88 07/12 6Result Comment: The eGFR is calculated using the CKD-EPI formula. In most young, healthy individuals the eGFR will be >90 mL/ min/1.73m2. The eGFR declines with age. An eGFR of 60-89 may be normal in [facility] mL/min/1. some populations, particularly the elderly, for whom the CKD-EPI formula has not been extensively validated. Use of the eGFR is not recommended in the following populations: [facility] Individuals with [...] CHEMISTRY Troponin-I null 0.00 - 11 Normal [facility] 0.40 [facility] HEMATOLOGY Basophils # 0.0 K/CMM 0.0 - 0.2 07/12 Normal [facility] HEMATOLOGY Eosinophils # 0.3 K/CMM 0.0 - 0.5 07/12 Normal [facility] HEMATOLOGY Monocytes # 1.0 K/CMM 0.0 - 0.8 07/12 HI [facility] HEMATOLOGY Lymphocytes # 3.0 K/CMM 1.0 - 5.5 07/12 Normal [facility] HEMATOLOGY Segs-Bands # 6.4 K/CMM 1.5 - 8.1 07/12 Normal [facility] HEMATOLOGY Basophils 0.4 % 0.0 - 1.0 07/12 Normal [facility] HEMATOLOGY Eosinophils 2.8 % 0.0 - 4.0 07/12 Normal [facility] HEMATOLOGY Plt Morph Normal 07/12 [facility] (07/12/2013 16:29:10) [place] HEMATOLOGY RBC Morph Normal 07/12 [facility] (07/12/2013 16:29:10) Center HEMATOLOGY Monocytes 9.4 % 2.0 - 12.0 07/12 Normal [facility] HEMATOLOGY Lymphocytes 27.9 % 20.0 - 07/12 Normal [place] 40.0 [facility] HEMATOLOGY Segs 59.5 % 45.0 - 07/12 Normal [facility] 75.0 [facility] HEMATOLOGY MCV 85.3 fL 81.0 - 07/12 [facility] 99.0 [facility] HEMATOLOGY Hct 41.2 % 36.0 - 07/12 Normal [place] 48.0 [facility] HEMATOLOGY Hgb 13.6 g/dL 12.0 - 07/12 Normal [facility] 16.0 [facility] HEMATOLOGY RBC X 10x6 4.84 M/CMM 4.20 - 11 Normal [facility] 5.40 /2012 Medical [place] HEMATOLOGY MPV 9.4 fL 7.4 - 10.4 07/12 Normal [facility] HEMATOLOGY Platelet 225 K/CMM 133 - 450 07/12 Normal [facility] HEMATOLOGY MCH 28.1 pg 27.0 - 07/12 Normal [facility] 31.0 Medical [place] HEMATOLOGY MCHC 33.0 g/dL 32.0 - 07/12 Normal [facility] 36.0 /2012 [facility] HEMATOLOGY RDW 12.7 % 11.5 - 07/12 Normal [facility] 14.5 [facility] HEMATOLOGY WBC X 10x3 10.7 K/CMM 3.7 - 10.4 07/12 HI [facility] CHEMISTRY AGAP 12.4 meq/L 10.0 - 07/12 Normal [facility] . [facility] CHEMISTRY Calcium Lvl 8.8 mg/dL 8.5 - 10.5 07/12 Normal [facility] CHEMISTRY Chloride Lvl 102 meq/L 95 - 109 07/12 Normal [facility] CHEMISTRY Potassium Lvl 3.4 meq/L 3.5 - 5.1 07/12 LOW [facility] CHEMISTRY CO2 30 meq/L 24 - 32 07/12 Normal [facility] CHEMISTRY Sodium Lvl 141 meq/L 135 - 145 07/12 Normal [facility] CHEMISTRY Creatinine 0.8 mg/dL 0.5 - 1.4 07/12 Normal [facility] CHEMISTRY BUN 6 mg/dL 7 - 22 07/12 LOW [facility] CHEMISTRY Glucose Lvl 163 mg/dL 70 - 99 07/12 [place] 9Interpretive Data: Adult reference range values reflect the clinical guidelines of the [place] [employer]. Medical Center IMMUNOLOGY CDC-HIV 1/2 Negative Negative 07/12 Medical *NA* Center (07/12/2013 16:02:06) CHEMISTRY Calcium Lvl 8.4 mg/dL 8.5 - 10.5 07/12 LOW [facility] CHEMISTRY AGAP 10.4 meq/L 10.0 - 07/12 Normal [facility] CHEMISTRY eGFR 76 07/12 7Result Comment: The eGFR is calculated using the CKD-EPI formula. In most young, healthy individuals the eGFR will be >90 mL/ min/1.73m2. The eGFR declines with age. An eGFR of 60-89 may be normal in [facility] mL/min/1.7 some populations, particularly the elderly, for whom the CKD-EPI formula has not been extensively validated. Use of the eGFR is not recommended in the following populations: [address] Individuals with unstable creatinine concentrations, including [...] 140 meq/L 135 - 145 07/12 Normal [facility] CHEMISTRY Chloride Lvl 103 meq/L 95 - 109 07/12 Normal [facility] CHEMISTRY Potassium Lvl 3.4 meq/L 3.5 - 5.1 07/12 LOW [facility]2012 [facility] CHEMISTRY BUN 9 mg/dL 7 - 22 07/12 Normal [facility]2012 [facility] CHEMISTRY Creatinine 0.9 mg/dL 0.5 - 1.4 07/12 Normal [facility] CHEMISTRY Glucose Lvl 296 mg/dL 70 - 99 07/12 [place] 10Interpretive Data: Adult reference range values reflect the clinical guidelines of the [place] [employer]. [facility] CHEMISTRY CO2 30 meq/L 24 - 32 07/12 Normal [facility] CHEMISTRY Troponin-I null 0.00 - 11 Normal [facility] 0.40 [facility] CHEMISTRY Lipase Lvl 76 unit/L 73 - 393 07/12 Normal [facility] CHEMISTRY B/C Ratio 11 6 - 25 07/12 Normal [facility] CHEMISTRY ASPARTATE 25 unit/L 0 - 37 07/12 Normal [facility] CHEMISTRY Bili Total 0.4 mg/dL 0.2 - 1.3 07/12 Normal [facility] CHEMISTRY Alk Phos 119 unit/L 39 - 136 07/12 Normal [facility] CHEMISTRY Albumin Lvl 3.9 g/dL 3.5 - 5.0 11/06 Normal [facility] CHEMISTRY ALANINE 29 unit/L 0 - 65 07/12 Normal [facility] AMINO [facility] CHEMISTRY Total Protein 8.1 g/dL 6.4 - 8.4 07/12 Normal [facility] CHEMISTRY Globulin 4.2 g/dL 2.0 - 4.0 07/12 HI [facility] CHEMISTRY A/G Ratio 0.9 0.7 - 1.6 07/12 Normal 2012 [facility] HEMATOLOGY Monocytes # 0.6 K/CMM 0.0 - 0.8 07/12 Normal [facility] HEMATOLOGY Segs-Bands # 9.5 K/CMM 1.5 - 8.1 07/12 [place] 2012 [facility] HEMATOLOGY Eosinophils # 0.2 K/CMM 0.0 - 0.5 07/12 Normal [facility] HEMATOLOGY Lymphocytes # 2.1 K/CMM 1.0 - 5.5 07/12 Normal [facility] HEMATOLOGY Basophils 0.2 % 0.0 - 1.0 07/12 Normal [facility] HEMATOLOGY Neut Vac Slight None Seen 07/12 ABN [facility] *ABN* [place] (07/12/2013 03:30:00) HEMATOLOGY Hypochrom Slight None Seen 07/12 Normal [facility] (07/12/2013 03:30:00) [place] HEMATOLOGY Basophils # 0.0 K/CMM 0.0 - 0.2 07/12 Normal [facility] HEMATOLOGY RBC Morph Normal 07/12 Normal [facility] (07/12/2013 03:30:00) [place] HEMATOLOGY Eosinophils 1.6 % 0.0 - 4.0 07/12 Normal [facility] HEMATOLOGY Monocytes 4.6 % 2.0 - 12.0 07/12 Normal [facility] HEMATOLOGY Segs 76.6 % 45.0 - 07/12 HI [facility] 75.0 [facility] HEMATOLOGY Lymphocytes 17.0 % 20.0 - 07/12 LOW [facility] 40.0 [facility] HEMATOLOGY Plt Morph Normal 07/12 Normal [facility] (07/12/2013 03:30:00) Center HEMATOLOGY MCHC 32.4 g/dL 32.0 - 07/12 Normal [place] 36.0 [facility] HEMATOLOGY MCH 27.4 pg 27.0 - 07/12 Normal [facility] 31.0 /2012 [facility] HEMATOLOGY RDW 12.7 % 11.5 - 07/12 Normal [facility] 14.5 /2012 [facility] HEMATOLOGY Platelet 235 K/CMM 133 - 450 07/12 Normal [facility] HEMATOLOGY MPV 9.4 fL 7.4 - 10.4 07/12 Normal [facility] HEMATOLOGY Hgb 12.9 g/dL 12.0 - 07/12 Normal [facility] 16.0 /2012 [facility] HEMATOLOGY MCV 84.3 fL 81.0 - 07/12 Normal [facility] 99.0 /2012 [facility] HEMATOLOGY Hct 39.6 % 36.0 - 07/12 Normal [facility] 48.0 /2012 [facility] HEMATOLOGY WBC X 10x3 12.4 K/CMM 3.7 - 10.4 07/12 HI [facility] HEMATOLOGY RBC X 10x6 4.70 M/CMM 4.20 - 07/12 Normal [facility] 5.40 [facility] CHEMISTRY U Preg Negative Negative 07/12 Normal [facility] (07/12/2013 03:00:00) Center URINALYSIS UA Leuk Est Negative Negative 07/12 Normal [facility] (07/12/2013 03:00:00) Center URINALYSIS UA 0.2 EU/dL 0.1 - 1.0 07/12 Normal [facility] Urobilinogen [facility] URINALYSIS UA Nitrite Negative Negative 07/12 Normal [facility] (07/12/2013 03:00:00) Center URINALYSIS UA Bili Negative Negative 07/12 [facility] *NA* Center (07/12/2013 03:00:00) URINALYSIS UA pH 6.0 5.0 - 8.0 07/12 Normal [facility] URINALYSIS UA Protein Negative Negative 07/12 Normal [facility] mg/dL [facility] URINALYSIS UA Glucose >=1000 Negative 07/12 ABN [facility] mg/dL [facility] URINALYSIS UA Ketones 15 mg/dL Negative 07/12 ABN [facility] URINALYSIS UA Spec Grav 1.020 <=1.030 07/12 Normal [facility] URINALYSIS UA Blood Negative Negative 07/12 Normal [facility] (07/12/2013 03:00:00) [place] URINALYSIS UA Color Yellow Yellow 07/12 [facility] *NA* [place] (07/12/2013 03:00:00) URINALYSIS UA Turbidity Clear Clear 07/12 Normal [facility] (07/12/2013 03:00:00) [place] URINALYSIS UA RBC 0-2 /HPF 0 - 2 07/12 Normal [facility] URINALYSIS UA WBC 3-5 /HPF None Seen 07/12 Normal 2012 [facility] URINALYSIS UA Sq Epi Many /LPF Few 07/12 ABN [facility] URINALYSIS UA Bacteria Few /HPF None Seen 07/12 Normal [facility] URINALYSIS UA [place] Yeast Moderate None Seen 07/12 [facility] URINALYSIS Micro? Performed 07/12 Normal [facility] (07/12/2013 03:00:00) [place] Abdomen/Pel Abdomen/Pelvi EXAM: CT ABDOMEN WITH CONTRAST 07/12 - [facility] vis w s w contrast - Medical contrast CT CT EXAM: CT PELVIS WITH CONTRAST This report was dictated by a Renal Medicine Specialist/Fellow. I have personally reviewed the images as [...] mg/dL 70 - 99 04/03 [place] 1Interpretive [facility] GLUCOSE Lifscn /2012 Data: Medical TESTING Center Upper Reportable Limit: 200 mg/dL. BEDSIDE Comment2 Sliding 04/03 [facility] [place] GLUCOSE Scale /2012 [facility] Center BEDSIDE Comment1 Notify 04/03 [facility] GLUCOSE RN/MD /2012 [facility] BEDSIDE Comment1 Notify 04/03 [facility] GLUCOSE RN/MD /2013 [facility] BEDSIDE Gluc POC 198 mg/dL 70 - 99 04/03 HI 2Interpretive [facility] GLUCOSE Lifscn Data: [facility] [place] Upper Reportable Limit: 200 mg/dL. BEDSIDE Comment2 Sliding 04/03 NA [facility] GLUCOSE Scale [facility] TESTING Center Abdomen 2 Abdomen 2 EXAM: XR ABDOMEN 1 VIEW 04/03 - [facility] views - Medical Center DATE: March [...] Cho MD. BEDSIDE Comment2 Sliding 04/03 NA [facility] GLUCOSE Scale /2012 [facility] TESTING Center BEDSIDE Comment1 Notify 04/03 NA [facility] GLUCOSE RN/ /2012 [facility] BEDSIDE Gluc POC 182 mg/dL 70 - 99 04/03 HI 3Interpretive [facility] GLUCOSE Lifscn Data: [facility] [place] Upper Reportable Limit: 200 mg/dL. CHEMISTRY Troponin-T null 0.000 - 04/03 Normal [facility] 0.100 [facility] CHEMISTRY Troponin-I null 0.00 - 04/03 Normal [facility] 0.40 [facility] CHEMISTRY Total CK 41 unit/L 12 - 191 04/03 Normal [facility] CHEMISTRY Creatinine 0.6 mg/dL 0.5 - 1.4 04/03 Normal [facility] Lvl [facility] CHEMISTRY Sodium Lvl 137 meq/L 135 - 145 04/03 Normal [facility] CHEMISTRY CO2 25 meq/L 24 - 32 04/03 Normal [facility] CHEMISTRY Calcium Lvl 8.2 mg/dL 8.5 - 10.5 04/03 LOW [facility] CHEMISTRY AGAP 17.9 meq/L 10.0 - 04/03 Normal [facility] 20.0 [facility] Center CHEMISTRY Potassium Lvl 3.9 meq/L 3.5 - 5.1 04/03 Normal [facility] CHEMISTRY Chloride Lvl 98 meq/L 95 - 109 04/03 Normal [facility] CHEMISTRY Glucose Lvl 266 mg/dL 70 - 99 04/03 HI 6Interpretive Data: Adult reference range values reflect the clinical guidelines of the [place] [employer]. [facility] CHEMISTRY BUN 3 mg/dL 7 - 22 04/03 LOW [facility] CHEMISTRY eGFR 109 04/03 NA 4Result Comment: The eGFR is calculated using the CKD-EPI formula. In most young, healthy individuals the eGFR will be > 90 mL/min/1.73m2. The eGFR declines with age. An eGFR of 60-89 may be normal in [facility] mL/min/1.7 some populations, particularly the elderly, for whom the CKD-EPI formula has not been extensively validated. Use of the eGFR is not recommended in the following populations: [place] [address] Center Individuals with unstable creatinine concentrations, including [...] HEMATOLOGY Hgb 10.5 g/dL 12.0 - 04/03 [facility] 16.0 [facility] HEMATOLOGY RBC 4.22 M/CMM 4.20 - 04/03 Normal [facility] 5.40 /2012 [facility] HEMATOLOGY WBC 10.3 K/CMM 3.7 - 10.4 04/03 Normal [facility] HEMATOLOGY Hct 33.5 % 36.0 - 04/03 [facility] 48.0 [facility] HEMATOLOGY MPV 8.8 fL 7.4 - 10.4 04/03 Normal [facility] HEMATOLOGY Platelet 276 K/CMM 133 - 450 04/03 Normal [facility] HEMATOLOGY RDW 18.7 % 11.5 - 04/03 HI [facility] 14.5 [facility] HEMATOLOGY MCHC 31.2 g/dL 32.0 - 04/03 [facility] 36.0 [facility] HEMATOLOGY MCH 24.8 pg 27.0 - 04/03 [facility] 31.0 [facility] HEMATOLOGY MCV 79.5 fL 81.0 - 04/03 LOW [place] 99.0 [facility] HEMATOLOGY Segs 58.6 % 45.0 - 04/03 Normal [place] 75.0 [facility] HEMATOLOGY Lymphocytes 29.9 % 20.0 - 04/03 Normal [place] 40.0 [facility] HEMATOLOGY Basophils 1.3 % 0.0 - 1.0 04/03 HI [facility] HEMATOLOGY Lymphocytes # 3.1 K/CMM 1.0 - 5.5 04/03 Normal [facility] HEMATOLOGY Segs-Bands # 6.0 K/CMM 1.5 - 8.1 04/03 Normal [facility] HEMATOLOGY Eosinophils 2.8 % 0.0 - 4.0 04/03 Normal [facility] HEMATOLOGY Eosinophils # 0.3 K/CMM 0.0 - 0.5 04/03 Normal [facility] HEMATOLOGY Monocytes # 0.8 K/CMM 0.0 - 0.8 04/03 Normal [facility] HEMATOLOGY Basophils # 0.1 K/CMM 0.0 - 0.2 04/03 Normal [facility] HEMATOLOGY Monocytes 7.4 % 2.0 - 12.0 04/03 Normal [facility] CHEMISTRY Troponin-I null 0.00 - 04/03 Normal [facility] 0.40 [facility] CHEMISTRY Total CK 51 unit/L 12 - 191 04/03 Normal [facility] CHEMISTRY Troponin-T null 0.000 - 04/03 Normal 0.100 [facility] CHEMISTRY Bili Direct 0.1 mg/dL 0.0 - 0.3 04/03 Normal [facility] CHEMISTRY Bili Total 0.4 mg/dL 0.2 - 1.3 04/03 Normal [facility] CHEMISTRY Bili Indirect 0.3 mg/dL 0.0 - 1.0 04/03 Normal [facility] CHEMISTRY ALT 22 unit/L 0 - 65 04/03 Normal [facility] CHEMISTRY AST 31 unit/L 0 - 37 04/03 Normal [facility] CHEMISTRY Lipase Lvl 54 unit/L 73 - 393 04/03 LOW [facility] CHEMISTRY Troponin-I null 0.00 - 04/02 Normal [place] 0.40 [facility] CHEMISTRY Total CK 24 unit/L 12 - 191 04/02 Normal [facility] CHEMISTRY AGAP 17.5 meq/L 10.0 - 04/02 Normal [facility] 20.0 [facility] CHEMISTRY eGFR 88 04/02 NA 5Result Comment: The eGFR is calculated using the CKD-EPI formula. In most young, healthy individuals the eGFR will be > 90 mL/min/1.73m2. The eGFR declines with age. An eGFR of 60-89 may be normal in [facility] mL/min/1.7 some populations, particularly the elderly, for whom the CKD-EPI formula has not been extensively validated. Use of the eGFR is not recommended in the following populations: [place] [address] [facility] Individuals with unstable creatinine concentrations, including [...] 0.8 mg/dL 0.5 - 1.4 04/02 Normal [facility] Lvl [facility] CHEMISTRY Potassium Lvl 3.5 meq/L 3.5 - 5.1 04/02 Normal [facility] CHEMISTRY Chloride Lvl 97 meq/L 95 - 109 04/02 Normal [facility] CHEMISTRY Glucose Lvl 163 mg/dL 70 - 99 04/02 HI 7Interpretive Data: Adult reference range values reflect the clinical guidelines of the [place] [employer]. [facility] CHEMISTRY BUN 2 mg/dL 7 - 22 04/02 LOW [facility] CHEMISTRY Sodium Lvl 136 meq/L 135 - 145 04/02 Normal [facility] CHEMISTRY Calcium Lvl 8.6 mg/dL 8.5 - 10.5 04/02 Normal [facility] CHEMISTRY CO2 25 meq/L 24 - 32 04/02 Normal [facility] HEMATOLOGY Platelet 378 K/CMM 133 - 450 04/02 Normal [facility] HEMATOLOGY MCHC 33.4 g/dL 32.0 - 04/02 Normal [facility] 36.0 [facility] HEMATOLOGY RDW 17.3 % 11.5 - 04/02 HI [facility] 14. [facility] HEMATOLOGY MCV 76.0 fL 81.0 - 04/02 [facility] [place] 99.0 /2012 [facility] HEMATOLOGY MCH 25.4 pg 27.0 - 04/02 [facility] 31.0 /2012 [facility] HEMATOLOGY Hct 34.2 % 36.0 - 04/02 [facility] 48.0 /2012 [facility] HEMATOLOGY RBC 4.50 M/CMM 4.20 - 04/02 Normal [facility] 5.40 /2012 [facility] HEMATOLOGY Hgb 11.4 g/dL 12.0 - 04/02 [facility] 16.0 [facility] HEMATOLOGY WBC 9.0 K/CMM 3.7 - 10.4 04/02 Normal [facility] HEMATOLOGY MPV 8.4 fL 7.4 - 10.4 04/02 Normal [facility] HEMATOLOGY Microcyte 2+ None Seen 04/02 ABN [facility] *ABN* Center (04/02/2013 17:09:00) HEMATOLOGY Basophils # 0.1 K/CMM 0.0 - 0.2 04/02 Normal [facility] HEMATOLOGY Eosinophils # 0.1 K/CMM 0.0 - 0.5 04/02 Normal [facility] HEMATOLOGY Monocytes # 0.7 K/CMM 0.0 - 0.8 04/02 Normal [facility] HEMATOLOGY Lymphocytes # 1.4 K/CMM 1.0 - 5.5 04/02 Normal [facility] HEMATOLOGY Segs-Bands # 6.7 K/CMM 1.5 - 8.1 04/02 Normal [facility] HEMATOLOGY Basophils 1.3 % 0.0 - 1.0 04/02 HI [facility] HEMATOLOGY Lymphocytes 15.2 % 20.0 - 04/02 [facility] 40.0 [facility] HEMATOLOGY Segs 74.3 % 45.0 - 04/02 [facility] 75.0 [facility] HEMATOLOGY Eosinophils 1.6 % 0.0 - 4.0 04/02 Normal [facility] HEMATOLOGY Monocytes 7.6 % 2.0 - 12.0 04/02 [facility] Chest 1view Chest 1view EXAM: XR CHEST 1 VIEW 04/02 - - [facility] Center DATE: 2013-04-02 1638 hours Read by: [...] mg/dL 70 - 99 03/09 HI 1Interpretive [facility] GLUCOSE Lifscn Data: [facility] Center Upper Reportable Limit: 200 mg/dL. BEDSIDE Comment1 Notify 03/09 NA [facility] GLUCOSE RN/ Medical [facility] Center CHEMISTRY eGFR 88 03/09 NA 4Result Comment: The eGFR is calculated using the CKD-EPI formula. In most young, healthy individuals the eGFR will be > 90 mL/min/1.73m2. The eGFR declines with age. An eGFR of 60-89 may be normal in [facility] mL/min/1.7 some populations, particularly the elderly, for whom the CKD-EPI formula has not been extensively validated. Use of the eGFR is not recommended in the following populations: [place] [address] [facility] Individuals with unstable creatinine concentrations, including [...] 7 mg/dL 7 - 22 03/09 Normal [facility] CHEMISTRY Creatinine 0.8 mg/dL 0.5 - 1.4 03/09 Normal [facility] Lvl [facility] CHEMISTRY Sodium Lvl 138 meq/L 135 - 145 03/09 Normal [facility] CHEMISTRY Potassium Lvl 4.7 meq/L 3.5 - 5.1 03/09 Normal [facility] CHEMISTRY Chloride Lvl 104 meq/L 95 - 109 03/09 Normal [facility] CHEMISTRY CO2 23 meq/L 24 - 32 03/09 LOW [facility] CHEMISTRY Bili Total 0.2 mg/dL 0.2 - 1.3 07/ Normal [facility] CHEMISTRY AST 22 unit/L 0 - 37 / Normal [facility] CHEMISTRY Total Protein 4.8 g/dL 6.4 - 8.4 07/ LOW [facility] CHEMISTRY Calcium Lvl 7.4 mg/dL 8.5 - 10.5 03/09 LOW [facility]2012 [facility] CHEMISTRY Albumin Lvl 1.9 g/dL 3.5 - 5.0 / LOW [facility] CHEMISTRY Glucose Lvl 192 mg/dL 70 - 99 07/ HI 7Interpretive Data: Adult reference range values reflect the clinical guidelines of the [place] [employer]. [facility] CHEMISTRY Alk Phos 162 unit/L 39 - 136 03/09 HI [facility] CHEMISTRY ALT 18 unit/L 0 - 65 03/09 Normal [facility] CHEMISTRY A/G Ratio 0.7 0.7 - 1.6 03/09 Normal [facility] CHEMISTRY Globulin 2.9 g/dL 2.0 - 4.0 03/09 Normal [facility] CHEMISTRY AGAP 15.7 meq/L 10.0 - 07 Normal [facility] 20.0 [facility] CHEMISTRY B/C Ratio 9 6 - 25 03/09 Normal [facility]2012 [facility] HEMATOLOGY Eosinophils 1.9 % 0.0 - 4.0 / Normal [facility] HEMATOLOGY Basophils 1.0 % 0.0 - 1.0 03/09 Normal [facility] HEMATOLOGY Anisocyte 1+ None Seen 03/09 ABN Medical *ABN* Center (03/09/2013 01:09:00) HEMATOLOGY Lymphocytes # 2.0 K/CMM 1.0 - 5.5 07/ Normal [facility] HEMATOLOGY Monocytes # 0.6 K/CMM 0.0 - 0.8 07/ Normal [facility]2012 [facility] HEMATOLOGY Eosinophils # 0.1 K/CMM 0.0 - 0.5 07/ Normal [facility]2012 [facility] HEMATOLOGY Basophils # 0.1 K/CMM 0.0 - 0.2 07/ Normal [facility] HEMATOLOGY Segs-Bands # 4.6 K/CMM 1.5 - 8.1 07/ Normal /2012 [facility] Center HEMATOLOGY Segs 62.8 % 45.0 - 07/ Normal [place] 75.0 /2012 Medical Center HEMATOLOGY Lymphocytes 26.4 % 20.0 - 07/ Normal [place] 40.0 /2012 Medical Center HEMATOLOGY Monocytes 7.9 % 2.0 - 12.0 07/ Normal [facility] Center HEMATOLOGY RDW 20.7 % 11.5 - 07/04 HI [place] 14.5 /2012 Medical Center HEMATOLOGY Platelet 304 K/CMM 133 - 450 07/ Normal /2012 [facility] HEMATOLOGY MPV 8.0 fL 7.4 - 10.4 07/ Normal [facility] HEMATOLOGY Hct 24.9 % 36.0 - 07/ LOW [place] 48.0 /2012 [facility] HEMATOLOGY MCV 79.3 fL 81.0 - 07/ [facility] [place] 99.0 /2012 [facility] HEMATOLOGY MCH 24.7 pg 27.0 - 07 LOW [facility] 31.0 /2012 Medical Center HEMATOLOGY MCHC 31.2 g/dL 32.0 - 07 LOW [place] 36.0 /2012 [facility] Center HEMATOLOGY RBC 3.14 M/CMM 4.20 - 07/ LOW [place] 5.40 /2012 Medical Center HEMATOLOGY Hgb 7.8 g/dL 12.0 - 07/ LOW [facility] 16.0 /2012 [facility] HEMATOLOGY WBC 7.4 K/CMM 3.7 - 10.4 07 Normal [facility] BEDSIDE Gluc POC 131 mg/dL 70 - 99 03/09 [place] 2Interpretive [facility] GLUCOSE tx Data: [facility]ING [facility] Upper Reportable Limit: 200 mg/dL. BEDSIDE Comment1 Notify 03/09 NA [facility] GLUCOSE RN/MD /2012 [facility] BEDSIDE Comment1 Notify 03/09 NA [facility] GLUCOSE RN/MD /2012 [facility] BEDSIDE Gluc POC 155 mg/dL 70 - 99 03/09 [place] 3Interpretive [facility] GLUCOSE Liftx Data: Medical TESTING Center Upper Reportable Limit: 200 mg/dL. CHEMISTRY Magnesium Lvl 1.5 mg/dL 1.8 - 2.4 03/08 LOW [facility] Center CHEMISTRY A/G Ratio 0.7 0.7 - 1.6 03/08 Normal [facility] CHEMISTRY B/C Ratio 8 6 - 25 03/08 Normal [facility] CHEMISTRY Globulin 2.8 g/dL 2.0 - 4.0 03/08 Normal [facility] CHEMISTRY AGAP 15.8 meq/L 10.0 - 03/08 Normal [facility] 20.0 /2012 [facility] CHEMISTRY Potassium Lvl 3.8 meq/L 3.5 - 5.1 03/08 Normal [facility] CHEMISTRY Chloride Lvl 100 meq/L 95 - 109 03/08 Normal [facility] CHEMISTRY CO2 23 meq/L 24 - 32 03/08 LOW [facility] CHEMISTRY Total Protein 4.8 g/dL 6.4 - 8.4 03/08 LOW [facility] CHEMISTRY AST 10 unit/L 0 - 37 03/08 Normal [facility] CHEMISTRY Calcium Lvl 7.6 mg/dL 8.5 - 10.5 03/08 LOW [facility]2012 [facility] CHEMISTRY Bili Total 0.3 mg/dL 0.2 - 1.3 03/08 Normal [facility] CHEMISTRY eGFR 88 03/08 NA 5Result Comment: The eGFR is calculated using the CKD-EPI formula. In most young, healthy individuals the eGFR will be > 90 mL/min/1.73m2. The eGFR declines with age. An eGFR of 60-89 may be normal in [facility] mL/min/1. some populations, particularly the elderly, for whom the CKD-EPI formula has not been extensively validated. Use of the eGFR is not recommended in the following populations: [address] Individuals with unstable creatinine concentrations, including [...] values reflect the clinical guidelines of the [place] [employer]. [facility] CHEMISTRY BUN 6 mg/dL 7 - 22 03/08 LOW [facility] CHEMISTRY Creatinine 0.8 mg/dL 0.5 - 1.4 03/08 Normal [facility] /2012 [facility] CHEMISTRY Sodium Lvl 135 meq/L 135 - 145 07 Normal [facility] CHEMISTRY Alk Phos 173 unit/L 39 - 136 07 HI [facility] CHEMISTRY ALT 16 unit/L 0 - 65 03/08 Normal [facility] CHEMISTRY Albumin Lvl 2.0 g/dL 3.5 - 5.0 03/08 LOW [facility] CHEMISTRY Lipase Lvl 54 unit/L 73 - 393 03/08 LOW [facility] CHEMISTRY Amylase Lvl 30 unit/L 25 - 115 / Normal [facility] HEMATOLOGY Basophils # 0.1 K/CMM 0.0 - 0.2 03/08 Normal [facility] HEMATOLOGY Anisocyte 1+ None Seen 03/08 ABN [facility] *[facility]* Center (03/08/2013 03:01:00) HEMATOLOGY Microcyte 1+ None Seen 03/08 [facility] *[facility]* Center (03/08/2013 03:01:00) HEMATOLOGY Eosinophils # 0.2 K/CMM 0.0 - 0.5 / Normal [facility] HEMATOLOGY Monocytes # 0.8 K/CMM 0.0 - 0.8 03/08 Normal [facility] HEMATOLOGY Lymphocytes 34.2 % 20.0 - 07 Normal [facility] 40.0 [facility] HEMATOLOGY Segs 53.3 % 45.0 - 07 [facility] 75.0 [facility] HEMATOLOGY Lymphocytes # 3.0 K/CMM 1.0 - 5.5 07 Normal [facility] HEMATOLOGY Segs-Bands # 4.7 K/CMM 1.5 - 8.1 07 Normal [facility] HEMATOLOGY Basophils 0.9 % 0.0 - 1.0 07/ Normal [facility] HEMATOLOGY Eosinophils 2.6 % 0.0 - 4.0 07/ Normal [facility] HEMATOLOGY Monocytes 9.0 % 2.0 - 12.0 07/ Normal [facility] HEMATOLOGY Hgb 7.9 g/dL 12.0 - 0703 LOW [facility] 16.0 [facility] HEMATOLOGY RBC 3.12 M/CMM 4.20 - 07 [facility] 5.40 /2012 [facility] HEMATOLOGY MPV 8.0 fL 7.4 - 10.4 07/ Normal [facility] HEMATOLOGY Platelet 294 K/CMM 133 - 450 07/ Normal [facility] HEMATOLOGY MCH 25.3 pg 27.0 - 07/ [facility] 31.0 /2012 Medical [place] HEMATOLOGY MCV 79.7 fL 81.0 - 07/ [facility] 99.0 /2012 Medical [place] HEMATOLOGY Hct 24.9 % 36.0 - 07/ [facility] 48.0 /2012 Medical [place] HEMATOLOGY WBC 8.8 K/CMM 3.7 - 10.4 07/ Normal [facility] HEMATOLOGY RDW 21.4 % 11.5 - 07/03 [facility] 14.5 /2012 [facility] HEMATOLOGY MCHC 31.8 g/dL 32.0 - 07/ [facility] 36.0 /2012 [facility] CHEMISTRY Troponin-I null 0.00 - 07 Normal [facility] 0.40 [facility] CHEMISTRY Total CK 26 unit/L 12 - 191 07 Normal [facility] CHEMISTRY A/G Ratio 0.6 0.7 - 1.6 07/ LOW [facility] CHEMISTRY Bili Total 0.6 mg/dL 0.2 - 1.3 07 Normal [facility] CHEMISTRY Bili Direct 0.3 mg/dL 0.0 - 0.3 07 Normal [facility] CHEMISTRY Alk Phos 190 unit/L 39 - 136 07/ [facility] CHEMISTRY Total Protein 5.2 g/dL 6.4 - 8.4 07 [facility] CHEMISTRY Globulin 3.2 g/dL 2.0 - 4.0 07/ Normal [facility] CHEMISTRY Bili Indirect 0.3 mg/dL 0.0 - 1.0 07/ Normal [facility] CHEMISTRY AST 11 unit/L 0 - 37 07/ Normal [facility] CHEMISTRY Albumin Lvl 2.0 g/dL 3.5 - 5.0 07/ LOW [facility] CHEMISTRY ALT 19 unit/L 0 - 65 07/ Normal [facility] CHEMISTRY Amylase Lvl 26 unit/L 25 - 115 07/ Normal [facility] CHEMISTRY Lipase Lvl 49 unit/L 73 - 393 07 [facility] HEMATOLOGY MPV 8.3 fL 7.4 - 10.4 07 Normal [facility] HEMATOLOGY MCH 24.7 pg 27.0 - 07 [facility] 31.0 /2012 [facility] HEMATOLOGY MCHC 32.6 g/dL 32.0 - 03/07 [facility] 36.0 /2012 [facility] HEMATOLOGY RDW 20.1 % 11.5 - 07 [facility] 14.5 /2012 [facility] HEMATOLOGY Platelet 362 K/CMM 133 - 450 07 Normal [facility] HEMATOLOGY MCV 75.7 fL 81.0 - 03/07 [facility] 99.0 /2012 [facility] HEMATOLOGY Hgb 8.8 g/dL 12.0 - 03/07 [facility] 16.0 [facility] HEMATOLOGY Hct 26.9 % 36.0 - 03/07 [facility] 48.0 [facility] HEMATOLOGY RBC 3.56 M/CMM 4.20 - 03/07 [facility] 5.40 /2012 [facility] HEMATOLOGY WBC 11.1 K/CMM 3.7 - 10.4 07 [facility] HEMATOLOGY Lymphocytes # 2.4 K/CMM 1.0 - 5.5 03/07 [facility] HEMATOLOGY Hypochrom Slight None Seen 03/07 [facility] (03/07/2013 07:43:59) Center HEMATOLOGY Microcyte 2+ None Seen 03/07 [facility] *ABN* Center (03/07/2013 07:43:59) HEMATOLOGY Anisocyte 1+ None Seen 03/07 [facility] *ABN* [place] (03/07/2013 07:43:59) HEMATOLOGY Basophils # 0.1 K/CMM 0.0 - 0.2 03/07 [facility] HEMATOLOGY Polychrom Slight None Seen 03/07 [facility] (03/07/2013 07:43:59) Center HEMATOLOGY Basophils 0.8 % 0.0 - 1.0 03/07 [facility] HEMATOLOGY Eosinophils 1.3 % 0.0 - 4.0 03/07 [facility] HEMATOLOGY Segs-Bands # 7.6 K/CMM 1.5 - 8.1 / Normal [facility] HEMATOLOGY Monocytes 8.1 % 2.0 - 12.0 03/07 Normal [facility] HEMATOLOGY Monocytes # 0.9 K/CMM 0.0 - 0.8 / HI [facility] HEMATOLOGY Eosinophils # 0.1 K/CMM 0.0 - 0.5 03/07 Normal [facility] HEMATOLOGY Target Cell Slight None Seen 03/07 ABN Medical *ABN* Center (03/07/2013 07:43:59) HEMATOLOGY Plt Morph Normal 03/07 Normal [facility] (03/07/2013 07:43:59) Center HEMATOLOGY Lymphocytes 22.0 % 20.0 - 07 [facility] 40.0 [facility] HEMATOLOGY Segs 67.8 % 45.0 - 07 [facility] 75.0 [facility] CHEMISTRY Lactic Acid 1.7 mMol/L 0.5 - 2.2 03/07 [facility] Lvl [facility] CHEMISTRY Total CK 21 unit/L 12 - 191 03/07 Normal [facility] CHEMISTRY Troponin-I null 0.00 - 07 Normal [facility] 0.40 /2012 [facility] CHEMISTRY eGFR 104 03/07 NA 6Result Comment: The eGFR is calculated using the CKD-EPI formula. In most young, healthy individuals the eGFR will be > 90 mL/min/1.73m2. The eGFR declines with age. An eGFR of 60-89 may be normal in [facility] mL/min/1.7 /2012 some populations, particularly the elderly, for whom the CKD-EPI formula has not been extensively validated. Use of the eGFR is not recommended in the following populations: [address] Individuals with unstable creatinine concentrations, including [...] 27 meq/L 24 - 32 07 Normal [facility] CHEMISTRY Potassium Lvl 3.6 meq/L 3.5 - 5.1 03/07 Normal [facility]2012 [facility] CHEMISTRY Chloride Lvl 99 meq/L 95 - 109 03/07 Normal [facility] CHEMISTRY Sodium Lvl 134 meq/L 135 - 145 03/07 LOW [facility] CHEMISTRY BUN 5 mg/dL 7 - 22 03/07 LOW [facility] CHEMISTRY Creatinine 0.7 mg/dL 0.5 - 1.4 03/07 Normal [facility] Lvl [facility] CHEMISTRY Glucose Lvl 233 mg/dL 70 - 99 03/07 [place] 9Interpretive Data: Adult reference range values reflect the clinical guidelines of the [place] [employer]. [facility] CHEMISTRY Calcium Lvl 7.7 mg/dL 8.5 - 10.5 03/07 LOW [facility] CHEMISTRY AGAP 11.6 meq/L 10.0 - 07 Normal [facility] 20.0 [facility] CHEMISTRY Temp Art 37.0 Abby 03/07 NA [facility] CHEMISTRY pH Art 7.41 7.35 - 03/07 Normal [facility] 7.45 [facility] CHEMISTRY pCO2 Art 34 mm[Hg] 35 - 45 03/07 LOW [facility] CHEMISTRY O2 Sat Art 97.5 % 95.0 - 03/07 Normal [facility] 100.0 [facility] CHEMISTRY HCO3 Art 22 mMol/L 22 - 26 03/07 Normal [facility] CHEMISTRY BE Art -2 mMol/L -2-2 - 2 03/07 Normal [facility] CHEMISTRY pO2 Art 96 mm[Hg] 80 - 100 03/07 Normal [facility] Chest 1view Chest 1view EXAM: CHEST 1 VIEW 03/07 - - Medical This report was dictated by a Renal Medicine Specialist/Fellow. I have personally reviewed the images as [...] CHEMISTRY Temp Mark 37.0 Abby 03/07 NA [facility] CHEMISTRY pO2 Mark 20 mm[Hg] 20 - 49 03/07 Normal [facility] CHEMISTRY HCO3 Mark 21 mMol/L 22 - 26 03/07 LOW [facility] CHEMISTRY BE Mark -2 mMol/L -2-2 - 2 03/07 Normal [facility] CHEMISTRY O2 Sat Mark 36.2 % 40.0 - 03/07 [facility] 70.0 [facility] CHEMISTRY pCO2 Mark 29 mm[Hg] 38 - 52 03/07 LOW [facility] CHEMISTRY pH Mark 7.46 7.28 - 03/07 [facility] 7.42 [facility] CHEMISTRY Lactic Acid 2.6 mMol/L 0.5 - 2.2 03/07 [facility] Lvl [facility] CHEMISTRY Phosphorus 3.1 mg/dL 2.5 - 4.5 03/07 Normal [facility] CHEMISTRY Magnesium Lvl 1.6 mg/dL 1.8 - 2.4 03/07 LOW [facility] CHEMISTRY Total CK 31 unit/L 12 - 191 03/07 Normal [facility] CHEMISTRY Troponin-I null 0.00 - 03/07 Normal [facility] 0.40 [facility] CHEMISTRY U Preg Negative Negative 03/06 Normal [facility] (03/06/2013 18:25:00) Center URINALYSIS UA Amorph Occasional /HPF None Seen 03/06 [facility] *ABN* [place] (03/06/2013 18:25:00) URINALYSIS UA Mucus Few /LPF None Seen 03/06 Normal [facility] (03/06/2013 18:25:00) Center URINALYSIS Micro? Performed 03/06 Normal [facility] (03/06/2013 18:25:00) Center URINALYSIS UA Sq Epi Moderate /LPF Few 03/06 [facility] Medical *ABN* [place] (03/06/2013 18:25:00) URINALYSIS UA WBC 0-2 /HPF None Seen 03/06 Normal [facility] (03/06/2013 18:25:00) Center URINALYSIS UA RBC None Seen 0 - 2 03/06 Normal [facility] (03/06/2013 18:25:00) Center URINALYSIS UA Bacteria Few /HPF None Seen 03/06 Normal [facility] (03/06/2013 18:25:00) Center URINALYSIS UA Bili Negative Negative 03/06 NA Medical *NA* [place] (03/06/2013 18:25:00) URINALYSIS UA 0.2 EU/dL 0.1 - 1.0 03/06 Normal [facility] Urobilinogen /2012 [facility] URINALYSIS UA Nitrite Negative Negative 03/06 Normal [facility] (03/06/2013 18:25:00) [place] URINALYSIS UA Leuk Est Trace Negative 03/06 [facility] Medical *ABN* [place] (03/06/2013 18:25:00) URINALYSIS UA Blood Negative Negative 03/06 Normal [facility] (03/06/2013 18:25:00) [place] URINALYSIS UA Ketones 40 mg/dL Negative 03/06 [facility] Medical *ABN* [place] (03/06/2013 18:25:00) URINALYSIS UA Turbidity Clear Clear 03/06 Normal [facility] (03/06/2013 18:25:00) Center URINALYSIS UA Color Yellow Yellow 03/06 NA [facility] *NA* [place] (03/06/2013 18:25:00) URINALYSIS UA Spec Grav 1.015 <=1.030 03/06 Normal [facility] URINALYSIS UA Protein Negative Negative 03/06 Normal [facility] (03/06/2013 18:25:00) Center URINALYSIS UA Glucose 250 mg/dL Negative 03/06 [facility] *ABN* [place] (03/06/2013 18:25:00) URINALYSIS UA pH 7.5 5.0 - 8.0 03/06 Normal [facility] Chest 2 Chest 2 views EXAM: CHEST 2 VIEWS 03/06 - [facility] - Medical This report was dictated by a Renal Medicine Specialist/Fellow. I have personally reviewed the images as [...] left pleural effusion. BEDSIDE Comment1 Notify 12/07 [facility] Fei GLUCOSE MARTÍNEZ/ [facility] TESTING Center BEDSIDE Gluc POC 64 mg/dL 70 - 99 12/07 LOW 3Interpretive [facility] GLUCOSE Lifscn Data: [facility] Center Upper Reportable Limit: 200 mg/dL. BEDSIDE Gluc POC 50 mg/dL 70 - 99 / LOW 4Interpretive [facility] GLUCOSE Lifscn Data: [facility] Center Upper Reportable Limit: 200 mg/dL. BEDSIDE Comment1 Notify 12/07 [facility] Fei GLUCOSE MARTÍNEZ/ /2012 [facility] TESTING [place] BEDSIDE Gluc POC 45 mg/dL 70 - 99 12/07 LOW 5Interpretive [facility] GLUCOSE Lifscn Data: [facility] Center Upper Reportable Limit: 200 mg/dL. BEDSIDE Comment1 Notify 12/07 [facility] Fei ROACH RN/ /2012 [facility] CHEMISTRY eGFR 109 12/07 NA 7Result Comment: The eGFR is calculated using the CKD-EPI formula. In most young, healthy individuals the eGFR will be > 90 mL/min/1.73m2. The eGFR declines with age. An eGFR of 60-89 may be normal in [facility] mL/min/1.7 /2012 some populations, particularly the elderly, for whom the CKD-EPI formula has not been extensively validated. Use of the eGFR is not recommended in the following populations: [address] Center Individuals with unstable creatinine concentrations, [...] 8.3 mg/dL 8.5 - 10.5 12/07 LOW [facility] CHEMISTRY AGAP 12.8 meq/L 10.0 - 12/07 Normal [facility] 20.0 [facility] CHEMISTRY BUN 2 mg/dL 7 - 22 12/07 LOW [facility] CHEMISTRY Glucose Lvl 95 mg/dL 70 - 99 12/07 Normal 10Interpretive Data: Adult reference range values reflect the clinical guidelines of the [place] [employer]. [facility] Center CHEMISTRY Potassium Lvl 3.8 meq/L 3.5 - 5.1 12/07 Normal [facility] CHEMISTRY Creatinine 0.6 mg/dL 0.5 - 1.4 12/07 Normal [facility] CHEMISTRY Sodium Lvl 140 meq/L 135 - 145 12/07 Normal [facility] CHEMISTRY Chloride Lvl 105 meq/L 95 - 109 12/07 Normal [facility] CHEMISTRY CO2 26 meq/L 24 - 32 12/07 Normal [facility] BEDSIDE Comment2 Verify 12/06 NA [facility] GLUCOSE wLab [facility] BEDSIDE Comment2 Verify 12/06 NA [facility] GLUCOSE w/Lab [facility] CHEMISTRY AGAP 13.5 meq/L 10.0 - 12/06 Normal [facility] .0 [facility] CHEMISTRY Calcium Lvl 8.1 mg/dL 8.5 - 10.5 12/06 LOW [facility] CHEMISTRY CO2 28 meq/L 24 - 32 12/06 Normal [facility] CHEMISTRY Chloride Lvl 101 meq/L 95 - 109 12/06 Normal [facility] CHEMISTRY eGFR 104 04 NA 8Result Comment: The eGFR is calculated using the CKD-EPI formula. In most young, healthy individuals the eGFR will be > 90 mL/min/1.73m2. The eGFR declines with age. An eGFR of 60-89 may be normal in [facility] mL/min/1.7 some populations, particularly the elderly, for whom the CKD-EPI formula has not been extensively validated. Use of the eGFR is not recommended in the following populations: [address] Individuals with unstable creatinine concentrations, including [...] reference range values reflect the clinical guidelines [facility] of the [place] [employer]. [facility] CHEMISTRY BUN 2 mg/dL 7 - 22 04 LOW [facility]2012 [facility] CHEMISTRY Creatinine 0.7 mg/dL 0.5 - 1.4 / Normal [facility] CHEMISTRY Sodium Lvl 139 meq/L 135 - 145 / Normal [address] CHEMISTRY Potassium Lvl 3.5 meq/L 3.5 - 5.1 12/06 Normal [facility]2012 [facility] CHEMISTRY Lipase Lvl 62 unit/L 73 - 393 04/ LOW [address] CHEMISTRY Alk Phos 92 unit/L 39 - 136 04/ Normal [facility]2012 [facility] CHEMISTRY Albumin Lvl 2.7 g/dL 3.5 - 5.0 / [facility]2012 [facility] CHEMISTRY Total Protein 5.8 g/dL 6.4 - 8.4 / [address] CHEMISTRY Globulin 3.1 g/dL 2.0 - 4.0 / Normal [facility]2012 [facility] CHEMISTRY A/G Ratio 0.9 0.7 - 1.6 / Normal [facility]2012 [facility] CHEMISTRY AST 74 unit/L 0 - 37 04/ [place] [facility]2012 [facility] CHEMISTRY ALT 50 unit/L 0 - 65 04/ Normal [facility]2012 [facility] CHEMISTRY Bili Indirect 0.1 mg/dL 0.0 - 1.0 / Normal [facility]2012 [facility] CHEMISTRY Bili Total 0.2 mg/dL 0.2 - 1.3 / Normal [facility]2012 [facility] CHEMISTRY Bili Direct 0.1 mg/dL 0.0 - 0.3 12/06 Normal [facility]2012 [facility] CHEMISTRY eGFR 109 04/ NA 9Result Comment: The eGFR is calculated using the CKD-EPI formula. In most young, healthy individuals the eGFR will be > 90 mL/min/1.73m2. The eGFR declines with age. An eGFR of 60-89 may be normal in [facility] mL/min/1.7 some populations, particularly the elderly, for whom the CKD-EPI formula has not been extensively validated. Use of the eGFR is not recommended in the following populations: [address] Individuals with unstable creatinine concentrations, including [...] values reflect the clinical guidelines of the [place] [employer]. [facility] CHEMISTRY Creatinine 0.6 mg/dL 0.5 - 1.4 12/05 Normal [facility] Lvl [facility] CHEMISTRY BUN 1 mg/dL 7 - 22 12/05 LOW [facility] CHEMISTRY Chloride Lvl 102 meq/L 95 - 109 12/05 Normal [facility] CHEMISTRY Potassium Lvl 3.3 meq/L 3.5 - 5.1 12/05 [facility] CHEMISTRY Sodium Lvl 140 meq/L 135 - 145 12/05 Normal [facility] CHEMISTRY Calcium Lvl 7.9 mg/dL 8.5 - 10.5 12/05 LOW [facility] CHEMISTRY CO2 29 meq/L 24 - 32 12/05 Normal [facility] CHEMISTRY AGAP 12.3 meq/L 10.0 - 12/05 Normal [facility] 20.0 [facility] CHEMISTRY Ca Norm mgdL 4.84 mg/dL 4.65 - 12/03 Normal [facility] 5. [facility] CHEMISTRY Ca Ion mgdL 4.84 mg/dL 4.65 - 12/03 Normal [facility] 5. [facility] CHEMISTRY Ca Ion 1.21 1.16 - 12/03 Normal [facility] mMol/L 1. [facility] CHEMISTRY Ca Norm 1.21 1.16 - 12/03 Normal [facility] mMol/L 1. [facility] CHEMISTRY Magnesium Lvl 1.8 mg/dL 1.8 - 2.4 12/03 Normal [facility] CHEMISTRY Phosphorus 3.4 mg/dL 2.5 - 4.5 12/03 Normal [facility] HEMATOLOGY Lymphocytes # 1.8 K/CMM 1.0 - 5.5 12/03 Normal [facility] HEMATOLOGY Lymphocytes 23.6 % 20.0 - 12/03 Normal [place] 40.0 [facility] HEMATOLOGY Eosinophils 2.9 % 0.0 - 4.0 12/03 Normal [facility] HEMATOLOGY Monocytes 9.1 % 2.0 - 12.0 12/03 Normal [facility] HEMATOLOGY Basophils 0.6 % 0.0 - 1.0 12/03 Normal [facility] HEMATOLOGY Segs-Bands # 5.0 K/CMM 1.5 - 8.1 12/03 Normal [facility] HEMATOLOGY Segs 63.8 % 45.0 - 12/03 [facility] 75.0 [facility] HEMATOLOGY Monocytes # 0.7 K/CMM 0.0 - 0.8 12/03 Normal [facility] HEMATOLOGY Eosinophils # 0.2 K/CMM 0.0 - 0.5 12/03 Normal [facility] HEMATOLOGY Microcyte 1+ None Seen 12/03 ABN Medical *ABN* Center (12/03/2012 01:02:00) HEMATOLOGY WBC 7.8 K/CMM 3.7 - 10.4 12/03 Normal [facility] HEMATOLOGY Hct 27.8 % 36.0 - 12/03 LOW [facility] 48.0 [facility] HEMATOLOGY MPV 8.5 fL 7.4 - 10.4 12/03 Normal [facility] HEMATOLOGY MCHC 32.4 g/dL 32.0 - 12/03 Normal [facility] 36.0 [facility] HEMATOLOGY RDW 18.9 % 11.5 - 12/03 [place] 14.5 [facility] HEMATOLOGY MCH 24.6 pg 27.0 - 12/03 LOW [place] 31.0 [facility] HEMATOLOGY RBC 3.66 M/CMM 4.20 - 12/03 LOW [facility] 5.40 [facility] HEMATOLOGY MCV 75.9 fL 81.0 - 12/03 LOW [facility] 99.0 Medical [place] HEMATOLOGY Platelet 224 K/CMM 133 - 450 12/03 Normal [facility] HEMATOLOGY Hgb 9.0 g/dL 12.0 - 12/03 LOW [facility] 16.0 [facility] Microbiolog Culture: 12/02 [facility] y Blood /2012 Medical Center Microbiolog Culture: MRSA 12/02 [facility] y /2012 Medical Center Microbiolog Culture: 12/02 [facility] y Resistant Medical Acinetobacter Center Screen CHEMISTRY Ketone 1.42 <=0.27 12/02 HI [facility] Quantitative mmol/L /2012 [facility] URINALYSIS UA WBC 1 /HPF 0 - 5 12/02 Normal [facility] URINALYSIS UA RBC null 0 - 2 12/02 Normal [facility] URINALYSIS UA <=1.0 0.1 - 1.0 12/02 NA [facility] Urobilinogen mg/dL Medical
*NA*< Center br/>(12/02 04:02:55) <sup> </sup> URINALYSIS UA Sq Epi Moderate /LPF Few 12/02 ABN Medical *ABN* Center (12/02/2012 04:02:55) URINALYSIS UA Leuk Est Negative Negative 12/02 Normal [facility] (12/02/2012 04:02:55) Center URINALYSIS UA Nitrite Negative Negative 12/02 Normal [facility] (12/02/2012 04:02:55) Center URINALYSIS UA Mucus Few /LPF None Seen 12/02 NA Medical *NA* Center (12/02/2012 04:02:55) URINALYSIS UA Ketones 40 mg/dL Negative 12/02 ABN Medical *ABN* Center (12/02/2012 04:02:55) URINALYSIS UA Blood Negative Negative 12/02 Normal [facility] (12/02/2012 04:02:55) Center URINALYSIS UA Glucose >=1000 mg/dL Negative 12/02 ABN [facility] *ABN* Center (12/02/2012 04:02:55) URINALYSIS UA Bili Negative Negative 12/02 NA Medical *NA* Center (12/02/2012 04:02:55) URINALYSIS UA Protein Negative mg/dL Negative 12/02 Normal [facility] (12/02/2012 04:02:55) Center URINALYSIS UA Turbidity Clear Clear 12/02 Normal [facility] (12/02/2012 04:02:55) Center URINALYSIS UA pH 5.5 5.0 - 8.0 12/02 Normal [facility] URINALYSIS UA Spec Grav 1.010 <=1.030 12/02 Normal [facility] URINALYSIS UA Color Yellow Yellow 12/02 NA [facility] *NA* Center (12/02/2012 04:02:55) HEMATOLOGY MPV 8.9 fL 7.4 - 10.4 12/02 Normal [facility] HEMATOLOGY Hct 27.9 % 36.0 - 12/02 [facility] 48.0 [facility] HEMATOLOGY MCV 76.1 fL 81.0 - 12/02 [facility] 99.0 [facility] HEMATOLOGY MCH 25.2 pg 27.0 - 12/02 [facility] 31.0 [facility] HEMATOLOGY MCHC 33.2 g/dL 32.0 - 12/02 Normal [facility] 36.0 [facility] HEMATOLOGY RDW 19.3 % 11.5 - 12/02 [facility] 14.5 [facility] HEMATOLOGY Platelet 224 K/CMM 133 - 450 12/02 Normal [facility] HEMATOLOGY WBC 8.6 K/CMM 3.7 - 10.4 12/02 Normal [facility] HEMATOLOGY Hgb 9.3 g/dL 12.0 - 12/02 [facility] 16.0 [facility] HEMATOLOGY RBC 3.67 M/CMM 4.20 - 12/02 [facility] 5.40 /2012 [facility] HEMATOLOGY Segs-Bands # 6.4 K/CMM 1.5 - 8.1 12/02 Normal [facility] HEMATOLOGY Lymphocytes # 1.5 K/CMM 1.0 - 5.5 12/02 Normal [facility] HEMATOLOGY Eosinophils 0.6 % 0.0 - 4.0 12/02 Normal [facility] HEMATOLOGY Basophils 0.7 % 0.0 - 1.0 12/02 Normal [facility] HEMATOLOGY Lymphocytes 17.3 % 20.0 - 03/29 LOW [facility] 40.0 [facility] HEMATOLOGY Monocytes # 0.7 K/CMM 0.0 - 0.8 12/02 Normal [facility] HEMATOLOGY Microcyte 1+ None Seen 12/02 ABN Medical *ABN* Center (12/02/2012 04:02:51) HEMATOLOGY Eosinophils # 0.1 K/CMM 0.0 - 0.5 12/02 Normal [facility] HEMATOLOGY Basophils # 0.1 K/CMM 0.0 - 0.2 12/02 Normal [facility] HEMATOLOGY Segs 73.8 % 45.0 - 12/02 Normal [facility] 75.0 [facility] HEMATOLOGY Monocytes 7.6 % 2.0 - 12.0 12/02 Normal [facility] Microbiolog Culture: 12/02 [facility] y [facility] CHEMISTRY POC A Glu 305 mg/dL 70 - 99 12/02 HI [facility] CHEMISTRY POC A Hct 29.0 % 36.0 - 12/02 LOW [facility] 48.0 [facility] CHEMISTRY POC A O2 Sat 97.0 % 95.0 - 12/02 Normal [facility] 100.0 [facility] CHEMISTRY POC A K 3.4 meq/L 3.5 - 5.1 12/02 LOW [facility] CHEMISTRY POC A Na 130 meq/L 135 - 145 12/02 LOW [facility] CHEMISTRY POC A PCO2 38 mm[Hg] 35 - 45 12/02 Normal [facility] CHEMISTRY POC A BE 2 mMol/L -2-2 - 2 12/02 Normal [facility] CHEMISTRY POC A HCO3 26 mMol/L 22 - 26 12/02 Normal [facility] CHEMISTRY POC A Source ART 12/02 NA [facility] CHEMISTRY POC A PO2 89 mm[Hg] 80 - 100 12/02 Normal [facility] CHEMISTRY POC A pH 7.44 7.35 - 12/02 Normal [facility] 7.45 [facility] CHEMISTRY POC A Temp 37.0 Abby 12/02 NA [facility] CHEMISTRY POC A Ca Ion 1.12 1.16 - 12/02 LOW [facility] mMol/L 1.30 [facility] CHEMISTRY POC A LA 0.8 mMol/L 0.5 - 2.2 12/02 Normal [facility] CHEMISTRY Magnesium Lvl 1.9 mg/dL 1.8 - 2.4 12/02 Normal [facility] CHEMISTRY Phosphorus 2.7 mg/dL 2.5 - 4.5 12/02 Normal [facility] CHEMISTRY Ca Norm mgdL 4.36 mg/dL 4.65 - 12/02 LOW [facility] . [facility] CHEMISTRY Ca Ion 1.14 1.16 - 12/02 LOW [place] mMol/L 1. [facility] CHEMISTRY Ca Ion mgdL 4.56 mg/dL 4.65 - 12/02 LOW [place] . [facility] CHEMISTRY Ca Norm 1.09 1.16 - 12/02 [facility] [place] mMol/L 1. [facility] HEMATOLOGY Platelet 223 K/CMM 133 - 450 12/02 Normal [facility] HEMATOLOGY MPV 9.2 fL 7.4 - 10.4 12/02 Normal [facility] HEMATOLOGY MCHC 32.3 g/dL 32.0 - 12/02 Normal [facility] 36.0 [facility] HEMATOLOGY RDW 19.2 % 11.5 - 12/02 HI [facility] 14.5 [facility] HEMATOLOGY WBC 7.6 K/CMM 3.7 - 10.4 12/02 Normal [facility] HEMATOLOGY Hgb 9.2 g/dL 12.0 - 12/02 [facility] 16.0 [facility] HEMATOLOGY Hct 28.6 % 36.0 - 12/02 [facility] 48.0 [facility] HEMATOLOGY MCV 76.3 fL 81.0 - 12/02 [facility] 99.0 [facility] HEMATOLOGY MCH 24.6 pg 27.0 - 12/02 [facility] 31.0 [facility] HEMATOLOGY RBC 3.74 M/CMM 4.20 - 12/02 [facility] 5.40 /2012 [facility] HEMATOLOGY Microcyte 1+ None Seen 12/02 ABN Medical *ABN* Center (12/02/2012 03:00:00) HEMATOLOGY Basophils # 0.1 K/CMM 0.0 - 0.2 12/02 Normal [facility] HEMATOLOGY Monocytes # 0.6 K/CMM 0.0 - 0.8 12/02 Normal [facility] HEMATOLOGY Lymphocytes # 1.9 K/CMM 1.0 - 5.5 12/02 Normal [facility] HEMATOLOGY Segs-Bands # 5.0 K/CMM 1.5 - 8.1 12/02 Normal [facility] HEMATOLOGY Segs 65.5 % 45.0 - 12/02 Normal [facility] 75.0 /2012 [facility] HEMATOLOGY Lymphocytes 25.0 % 20.0 - 12/02 Normal [facility] 40.0 [facility] HEMATOLOGY Monocytes 8.4 % 2.0 - 12.0 12/02 Normal [facility] HEMATOLOGY Eosinophils 0.4 % 0.0 - 4.0 12/02 Normal [facility] HEMATOLOGY Basophils 0.7 % 0.0 - 1.0 12/02 Normal [facility] CHEMISTRY Magnesium Lvl 2.0 mg/dL 1.8 - 2.4 12/01 Normal [facility] CHEMISTRY Ca Norm mgdL 4.48 mg/dL 4.65 - 12/01 LOW [facility] 5. [facility] CHEMISTRY Ca Ion mgdL 4.68 mg/dL 4.65 - 12/01 Normal [facility] 5. [facility] CHEMISTRY Ca Ion 1.17 1.16 - 12/01 Normal [facility] mMol/L 1. [facility] CHEMISTRY Ca Norm 1.12 1.16 - 12/01 LOW [facility] mMol/L 1. [facility] CHEMISTRY Phosphorus 2.7 mg/dL 2.5 - 4.5 12/01 Normal [facility] URINALYSIS UA <=1.0 0.1 - 1.0 11/30 NA [facility] Urobilinogen mg/dL /2012 Medical
*NA*< Center br/>(11/30 17:41:33) <sup> </sup> URINALYSIS UA Mucus Few /LPF None Seen 11/30 NA Medical *NA* Center (11/30/2012 17:41:33) URINALYSIS UA WBC null 0 - 5 11/30 Normal [facility] URINALYSIS UA Sq Epi Moderate /LPF Few 11/30 ABN Medical *ABN* Center (11/30/2012 17:41:33) URINALYSIS UA Protein Negative mg/dL Negative 11/30 Normal [facility] (11/30/2012 17:41:33) Center URINALYSIS UA pH 5.0 5.0 - 8.0 11/30 Normal [facility] Center URINALYSIS UA Spec Grav 1.004 <=1.030 11/30 Normal [facility] URINALYSIS UA Turbidity Clear Clear 11/30 Normal [facility] (11/30/2012 17:41:33) Center URINALYSIS UA Color Light Yellow Yellow 11/30 NA Medical *NA* [place] (11/30/2012 17:41:33) URINALYSIS UA Leuk Est Negative Negative 11/30 Normal [facility] (11/30/2012 17:41:33) Center URINALYSIS UA Nitrite Negative Negative 11/30 Normal [facility] (11/30/2012 17:41:33) Center URINALYSIS UA Blood Negative Negative 11/30 Normal [facility] (11/30/2012 17:41:33) Center URINALYSIS UA Bili Negative Negative 11/30 NA [facility] *NA* [place] (11/30/2012 17:41:33) URINALYSIS UA Ketones 10 mg/dL Negative 11/30 ABN [facility] *ABN* [place] (11/30/2012 17:41:33) URINALYSIS UA Glucose Negative mg/dL Negative 11/30 NA [facility] *NA* [place] (11/30/2012 17:41:33) CHEMISTRY Ketone 1.65 <=0.27 11/30 HI [facility] Quantitative mmol/L /2012 [facility] HEMATOLOGY PT 14.1 s 12.0 - 11/30 Normal [facility] 14.7 [facility] Center HEMATOLOGY PTT 28.1 s 22.9 - 11/30 Normal 18Interpretiv [facility] 35.8 /2013 e Data: [facility] Heparin Center Therapeutic Range: 57 - 92 Seconds HEMATOLOGY INR 1.07 0.85 - 11/30 Normal 16Interpretive Data: RECOMMENDED RANGES FOR PROTIME INR: [facility] . 2.0-3.0 for most medical and [...] CHEMISTRY U Chloride 134 meq/L 11/30 NA [facility] CHEMISTRY Bili Total 0.4 mg/dL 0.2 - 1.3 11/30 Normal [facility] CHEMISTRY Total Protein 6.3 g/dL 6.4 - 8.4 11/30 LOW [facility] CHEMISTRY Albumin Lvl 2.9 g/dL 3.5 - 5.0 11/30 LOW [facility] CHEMISTRY Alk Phos 127 unit/L 39 - 136 11/30 Normal [facility] CHEMISTRY Bili Direct 0.2 mg/dL 0.0 - 0.3 11/30 Normal [facility] CHEMISTRY AST 22 unit/L 0 - 37 11/30 Normal [facility] CHEMISTRY ALT 20 unit/L 0 - 65 11/30 Normal [facility] CHEMISTRY A/G Ratio 0.9 0.7 - 1.6 11/30 Normal [facility] CHEMISTRY Bili Indirect 0.2 mg/dL 0.0 - 1.0 11/30 Normal [facility] CHEMISTRY Globulin 3.4 g/dL 2.0 - 4.0 11/30 Normal [facility] HEMATOLOGY Basophils # 0.1 K/CMM 0.0 - 0.2 11/30 Normal [facility] HEMATOLOGY PT 13.9 s 12.0 - 11/30 Normal [facility] 14.7 [facility] HEMATOLOGY PTT 26.5 s 22.9 - 11/30 Normal 19Interpretiv [facility] 35.8 /2012 e Data: [facility] Heparin Center Therapeutic Range: 57 - 92 Seconds HEMATOLOGY INR 1.05 0.85 - 11/30 Normal 17Interpretive Data: RECOMMENDED RANGES FOR PROTIME INR: [facility] . 2.0-3.0 for most medical and surgical thromboembolic states. Medical 2.5-3.5 for artificial heart valves and recurrent embolism. Center INR SHOULD BE USED ONLY FOR PATIENTS ON STABLE ANTICOAGULANT THERAPY. CHEMISTRY POC V Temp 37.0 Abby 11/29 NA [facility] CHEMISTRY POC V Ion Ca 1.16 [...] mmol/L -2-2 - 2 11/29 LOW Medical [place] CHEMISTRY POC V pH 7.42 7.28 - 11/29 Normal [facility] 7.42 Medical Center CHEMISTRY POC V PCO2 31 mm[Hg] 38 - 52 11/29 LOW [facility] CHEMISTRY POC V PO2 51 mm[Hg] 20 - 49 11/29 HI [facility] CHEMISTRY POC V HCO3 20 mmol/L 22 - 26 11/29 LOW [facility] CHEMISTRY Troponin-I 0.05 ng/mL 0.00 - 11/29 Normal [facility] 0.40 Medical Center CHEMISTRY Total CK [...] CHEMISTRY POC A Source ART 11/29 NA [facility] CHEMISTRY POC A O2 Sat 98.0 % 95.0 - 11/29 Normal [facility] 100.0 [facility] CHEMISTRY POC A BE -11 mMol/L -2-2 - 2 11/29 LOW [facility] CHEMISTRY POC A HCO3 14 mMol/L 22 - 26 11/29 LOW [facility] CHEMISTRY POC A PCO2 26 mm[Hg] 35 - 45 11/29 CRIT [facility] CHEMISTRY POC A PO2 115 mm[Hg] 80 - 100 11/29 HI [facility] CHEMISTRY POC A pH 7.33 7.35 - 11/29 LOW [facility] 7.45 [facility] BACTERIAL - MRSA by PCR Positive 1, 2 11/29 ABN 2Interpretive Data: Interpretive Data: The [employer] MRSA assay is a qualitative test for the direct detection of nasal colonization with methicillin-resistant Staphylococcus aureus (MRSA) to aid [facility] in the prevention and control of [...] the [facility]. The [facility] atory is authorized under the Clinical Laboratory Improvement Amendment of 1988 (CLIA-88) to perform high complexity testing. CHEMISTRY Temp Art 37.0 Abby 11/29 NA [facility] CHEMISTRY O2 Sat Art 96.6 % 95.0 - 11/29 Normal [facility] 100.0 [facility] CHEMISTRY pO2 Art 96 mm[Hg] 80 - 100 11/29 Normal [facility] CHEMISTRY pCO2 Art 25 mm[Hg] 35 - 45 11/29 CRIT 15Result Comment: [facility] Result(s) called to jose rodriguez at _11/29/2012 12:25:56 CDT bykak_. Read back OK. CHEMISTRY BE Art -12 mMol/L -2-2 - 2 11/29 LOW [facility] CHEMISTRY HCO3 Art 12 mMol/L - 11/29 LOW [facility] CHEMISTRY pH Art 7.30 7.35 - 11/29 LOW [facility] 7.45 [facility] CHEMISTRY A/G Ratio 0.8 0.7 - 1.6 11/29 Normal [facility] CHEMISTRY Globulin 4.0 g/dL 2.0 - 4.0 11/29 Normal [facility] CHEMISTRY AST 17 unit/L 0 - 37 11/29 Normal [facility] CHEMISTRY Bili Total 0.8 mg/dL 0.2 - 1.3 11/29 Normal [facility] CHEMISTRY B/C Ratio 14 - 11/29 Normal [facility] CHEMISTRY Total Protein 7.4 g/dL 6.4 - 8.4 11/29 Normal [facility] CHEMISTRY ALT 22 unit/L 0 - 65 11/29 Normal [facility] CHEMISTRY Albumin Lvl 3.4 g/dL 3.5 - 5.0 11/29 LOW [facility] CHEMISTRY Alk Phos 126 unit/L 39 - 136 11/29 Normal [facility] CHEMISTRY Troponin-I null 0.00 - 11/29 Normal [facility] 0.40 [facility] CHEMISTRY Lipase Lvl 70 unit/L 73 - 393 11/29 LOW [facility] CHEMISTRY B/C Ratio 10 - 11/29 Normal [facility] HEMATOLOGY Hypochrom Slight None Seen 11/29 Normal [facility] (11/28/2012 21:00:20) Center HEMATOLOGY Polychrom Slight None Seen 11/29 Normal [facility] (11/28/2012 21:00:20) Center HEMATOLOGY Anisocyte 1+ None Seen 11/29 ABN [facility] *ABN* Center (11/28/2012 21:00:20) HEMATOLOGY Large Plt Slight None Seen 11/29 [facility] Medical *ABN* Center (11/28/2012 21:00:20) HEMATOLOGY Eosinophils # 0.2 K/CMM 0.0 - 0.5 11/29 Normal [facility] CHEMISTRY U Preg Negative Negative 11/29 Normal Medical (11/28/2012 20:55:00) Center URINALYSIS UA Blood Negative Negative 11/29 Normal [facility] (11/28/2012 20:55:00) [place] URINALYSIS UA Bili Small 6 Negative 11/29 ABN 6Result Comment: Interpret positive bilirubin results with caution. Confirmatory testing not possible due to the unavailability of reagent. Correlation with Medical *ABN* serum chemistry results recommended. [place] (11/28/2012 20:55:00) URINALYSIS UA Protein Negative Negative 11/29 Normal [facility] (11/28/2012 20:55:00) [place] URINALYSIS Micro? Not Indicated 11/29 Normal [facility] (11/28/2012 20:55:00) [place] URINALYSIS UA Glucose Negative Negative 11/29 Normal [facility] (11/28/2012 20:55:00) [place] URINALYSIS UA Ketones 40 mg/dL Negative 11/29 ABN Medical *ABN* [place] (11/28/2012 20:55:00) URINALYSIS UA Leuk Est Negative Negative 11/29 Normal [facility] (11/28/2012 20:55:00) [place] URINALYSIS UA 0.2 EU/dL 0.1 - 1.0 11/29 Normal [facility] Urobilinogen /2012 [facility] URINALYSIS UA Nitrite Negative Negative 11/29 Normal [facility] (11/28/2012 20:55:00) [place] URINALYSIS UA Spec Grav 1.010 <=1.030 11/29 Normal [facility] URINALYSIS UA pH 6.0 5.0 - 8.0 11/29 Normal [facility] URINALYSIS UA Color Yellow Yellow 11/29 NA Medical *NA* [place] (11/28/2012 20:55:00) URINALYSIS UA Turbidity Clear Clear 11/29 Normal Medical (11/28/2012 20:55:00) Center BEDSIDE Comment1 Notify 11/17 NA [facility] GLUCOSE RN/MD /2012 [facility] BEDSIDE Gluc POC 219 mg/dL 70 - 99 11/17 HI 1Interpretive [facility] GLUCOSE Liftxn Data: Medical TESTING Center Upper Reportable Limit: 200 mg/dL. BEDSIDE Gluc POC 255 mg/dL 70 - 99 11/17 HI 2Interpretive [facility] GLUCOSE Lifscn Data: Medical TESTING Center Upper Reportable Limit: 200 mg/dL. BEDSIDE Comment1 Notify 11/17 NA [facility] GLUCOSE RN/MD /2012 [facility] Center CHEMISTRY Troponin-T null 0.000 - 11/17 Normal [facility] 0.100 [facility] CHEMISTRY Troponin-I null 0.00 - 11/17 Normal [facility] 0.40 [facility] CHEMISTRY Total CK 52 unit/L 12 - 191 11/17 Normal [facility] CHEMISTRY eGFR 109 11/17 NA 4Result Comment: The eGFR is calculated using the CKD-EPI formula. In most young, healthy individuals the eGFR will be > 90 mL/min/1.73m2. The eGFR declines with age. An eGFR of 60-89 may be normal in [facility] mL/min/1.7 some populations, particularly the elderly, for whom the CKD-EPI formula has not been extensively validated. Use of the eGFR is not recommended in the following populations: [place] [address] Center Individuals with unstable creatinine concentrations, including [...] 7.7 mg/dL 8.5 - 10.5 11/17 LOW [facility] CHEMISTRY AGAP 16.2 meq/L 10.0 - 11/17 Normal [facility] 20.0 [facility] CHEMISTRY Chloride Lvl 100 meq/L 95 - 109 11/17 Normal [facility] CHEMISTRY Potassium Lvl 4.2 meq/L 3.5 - 5.1 11/17 Normal [facility] CHEMISTRY Sodium Lvl 134 meq/L 135 - 145 11/17 LOW [facility] CHEMISTRY CO2 22 meq/L 24 - 32 11/17 [facility] CHEMISTRY Creatinine 0.6 mg/dL 0.5 - 1.4 11/17 Normal [facility] Planol /2012 [facility] CHEMISTRY BUN 4 mg/dL 7 - 22 11/17 [facility] CHEMISTRY Glucose Lvl 237 mg/dL 70 - 99 11/17 HI 6Interpretive Data: Adult reference range values reflect the clinical guidelines of the [place] [employer]. [facility] CHEMISTRY Magnesium Lvl 1.4 mg/dL 1.8 - 2.4 11/17 LOW [facility] CHEMISTRY Phosphorus 3.4 mg/dL 2.5 - 4.5 11/17 Normal [facility] HEMATOLOGY Segs 60.3 % 45.0 - 11/17 Normal [facility] 75.0 /2012 [facility] HEMATOLOGY Monocytes 9.0 % 2.0 - 12.0 11/17 Normal [facility] HEMATOLOGY Lymphocytes 27.8 % 20.0 - 11/17 Normal [facility] 40.0 [facility] HEMATOLOGY Eosinophils 2.1 % 0.0 - 4.0 11/17 Normal [facility] HEMATOLOGY Lymphocytes # 2.3 K/CMM 1.0 - 5.5 11/17 Normal [facility] HEMATOLOGY Eosinophils # 0.2 K/CMM 0.0 - 0.5 11/17 Normal [facility] HEMATOLOGY Basophils 0.8 % 0.0 - 1.0 11/17 Normal [facility] HEMATOLOGY Segs-Bands # 5.1 K/CMM 1.5 - 8.1 11/17 Normal [facility] HEMATOLOGY Basophils # 0.1 K/CMM 0.0 - 0.2 11/17 Normal [facility] HEMATOLOGY Monocytes # 0.8 K/CMM 0.0 - 0.8 11/17 Normal [facility] HEMATOLOGY Microcyte 1+ None Seen 11/17 ABN Medical *ABN* Center (11/17/2012 04:33:00) HEMATOLOGY INR 1.09 0.85 - 11/17 Normal 8Interpretive Data: RECOMMENDED RANGES FOR PROTIME INR: [facility] . 2.0-3.0 for most medical and surgical thromboembolic states. Medical 2.5-3.5 for artificial heart valves and recurrent embolism. Center INR SHOULD BE USED ONLY FOR PATIENTS ON STABLE ANTICOAGULANT THERAPY. HEMATOLOGY PT 14.3 s 12.0 - 11/17 Normal [facility] 14.7 [facility] HEMATOLOGY PTT 31.8 s 22.9 - 11/17 Normal 9Interpretive [facility] 35.8 Data: Heparin [facility] Therapeutic Center Range: 57 - 92 Seconds HEMATOLOGY Platelet 177 K/CMM 133 - 450 11/17 Normal [facility] HEMATOLOGY MPV 9.5 fL 7.4 - 10.4 11/17 Normal Medical [place] HEMATOLOGY MCH 24.5 pg 27.0 - 11/17 LOW [facility] 31.0 /2012 Medical [place] HEMATOLOGY RDW 18.9 % 11.5 - 11/17 HI [facility] 14.5 /2012 Medical Center HEMATOLOGY MCHC 32.3 g/dL 32.0 - 11/17 Normal [facility] 36.0 /2012 Medical Center HEMATOLOGY MCV 75.9 fL 81.0 - 11/17 LOW [facility] 99.0 /2012 [facility] Center HEMATOLOGY RBC 3.67 M/CMM 4.20 - 11/17 LOW [facility] 5.40 /2012 Medical Center HEMATOLOGY WBC 8.4 K/CMM 3.7 - 10.4 11/17 Normal [facility] HEMATOLOGY Hct 27.9 % 36.0 - 11/17 [facility] 48.0 /2012 Medical Center HEMATOLOGY Hgb 9.0 g/dL 12.0 - 11/17 LOW [facility] 16.0 Medical Center CHEMISTRY Troponin-T null 0.000 - 11/17 Normal [facility] 0.100 [facility] Center CHEMISTRY Troponin-I null 0.00 - 11/17 Normal [facility] 0.40 [facility] Center CHEMISTRY Total CK 76 unit/L 11/17 Normal [facility] CHEMISTRY CK MB Index 0.8 0.0 - 2.5 11/17 Normal [facility] CHEMISTRY CK MB 0.6 ng/mL 0.5 - 3.6 11/17 Normal [facility] BEDSIDE Gluc POC 305 mg/dL 70 - 99 11/17 OR 3Interpretive [facility] GLUCOSE Lifscn Data: Medical TESTING Center Upper Reportable Limit: 200 mg/dL. BEDSIDE Comment1 Notify 11/17 NA [facility] GLUCOSE RN/MD /2012 [facility] CHEMISTRY Magnesium Lvl 1.4 mg/dL 1.8 - 2.4 11/16 LOW [facility] CHEMISTRY Total CK 27 unit/L 11/16 Normal [facility] Center CHEMISTRY Troponin-T null 0.000 - 11/16 Normal [facility] 0.100 [facility] Center CHEMISTRY Troponin-I null 0.00 - 11/16 Normal [facility] 0.40 Medical Center CHEMISTRY B/C Ratio 6 6 - 25 11/16 Normal [facility] CHEMISTRY A/G Ratio 1.0 0.7 - 1.6 11/16 Normal [facility] CHEMISTRY AGAP 18.6 meq/L 10.0 - 11/16 Normal [facility] 20.0 [facility] CHEMISTRY Globulin 3.5 g/dL 2.0 - 4.0 11/16 Normal [facility] CHEMISTRY eGFR 67 11/16 NA 5Result Comment: The eGFR is calculated using the CKD-EPI formula. In most young, healthy individuals the eGFR will be > 90 mL/min/1.73m2. The eGFR declines with age. An eGFR of 60-89 may be normal in [facility] mL/min/1.7 some populations, particularly the elderly, for whom the CKD-EPI formula has not been extensively validated. Use of the eGFR is not recommended in the following populations: [address] Individuals with unstable creatinine concentrations, including [...] 3.4 g/dL 3.5 - 5.0 11/16 LOW [facility] CHEMISTRY Alk Phos 88 unit/L 39 - 136 11/16 Normal [facility] CHEMISTRY Glucose Lvl 256 mg/dL 70 - 99 11/16 HI 7Interpretive Data: Adult reference range values reflect the clinical guidelines of the [place] [employer]. [facility] CHEMISTRY BUN 6 mg/dL 7 - 22 11/16 LOW [facility] CHEMISTRY Sodium Lvl 136 meq/L 135 - 145 11/16 Normal [facility] CHEMISTRY Chloride Lvl 99 meq/L 95 - 109 11/16 Normal [facility] CHEMISTRY Creatinine 1.0 mg/dL 0.5 - 1.4 11/16 Normal [facility] CHEMISTRY Potassium Lvl 3.6 meq/L 3.5 - 5.1 11/16 Normal [facility] CHEMISTRY CO2 22 meq/L 24 - 32 11/16 LOW [facility] CHEMISTRY Calcium Lvl 8.8 mg/dL 8.5 - 10.5 11/16 Normal [facility] CHEMISTRY Bili Total 0.6 mg/dL 0.2 - 1.3 11/16 Normal [facility] CHEMISTRY Total Protein 6.9 g/dL 6.4 - 8.4 11/16 Normal [facility] CHEMISTRY AST 52 unit/L 0 - 37 11/16 HI [facility] CHEMISTRY ALT 52 unit/L 0 - 65 11/16 Normal [facility] CHEMISTRY Phosphorus 1.6 mg/dL 2.5 - 4.5 11/16 LOW [facility] HEMATOLOGY Lymphocytes 16.8 % 20.0 - 11/16 LOW [facility] 40.0 [facility] HEMATOLOGY Segs 72.3 % 45.0 - 11/16 [facility] 75.0 [facility] HEMATOLOGY Large Plt Slight None Seen 11/16 [facility] (11/16/2012 13:17:00) HEMATOLOGY Elliptocyte Slight None Seen 11/16 [facility] (11/16/2012 13:17:00) HEMATOLOGY Polychrom Slight None Seen 11/16 [facility] (11/16/2012 13:17:00) Center HEMATOLOGY Microcyte 1+ None Seen 11/16 [facility] (11/16/2012 13:17:00) HEMATOLOGY Basophils # 0.1 K/CMM 0.0 - 0.2 11/16 Normal [facility] HEMATOLOGY Hypochrom Slight None Seen 11/16 Normal [facility] (11/16/2012 13:17:00) Center HEMATOLOGY Anisocyte 1+ None Seen 11/16 [facility] (11/16/2012 13:17:00) HEMATOLOGY Schistocyte Occasional 11/16 NA [facility] HEMATOLOGY Monocytes 8.6 % 2.0 - 12.0 11/16 Normal [facility] HEMATOLOGY Eosinophils 1.5 % 0.0 - 4.0 11/16 Normal [facility] HEMATOLOGY Monocytes # 1.1 K/CMM 0.0 - 0.8 11/16 HI [facility] HEMATOLOGY Segs-Bands # 9.7 K/CMM 1.5 - 8.1 11/16 [facility] Center HEMATOLOGY Eosinophils # 0.2 [...] WBC 13.3 K/CMM 3.7 - 10.4 11/16 [facility] Center HEMATOLOGY RDW 18.0 % 11.5 - 11/16 [facility] [place] 14.5 /2012 Medical Center HEMATOLOGY Hct 32.4 % 36.0 - 11/16 LOW [place] 48.0 /2012 Medical Center HEMATOLOGY MCHC 33.3 g/dL 32.0 - 11/16 Normal [facility] 36.0 /2012 Medical Center HEMATOLOGY MCV 75.4 fL 81.0 - 11/16 LOW [place] 99.0 /2012 Medical Center HEMATOLOGY MCH 25.1 pg 27.0 - 11/16 [facility] 31.0 /2012 Medical Center HEMATOLOGY Platelet 230 K/CMM 133 - 450 11/16 Normal [facility] HEMATOLOGY MPV 9.9 fL 7.4 - 10.4 11/16 Normal [facility] BEDSIDE Comment1 Notify 11/14 NA [facility]i GLUCOSE MARTÍNEZ/ /2012 [facility] BEDSIDE Gluc POC 266 mg/dL 11/14 OR 2Interpretive [facility] GLUCOSE Lifsc Data: Medical TESTING Center Upper Reportable Limit: 200 mg/dL. BEDSIDE Comment1 Notify 11/14 NA [facility] GLUCOSE MARTÍNEZ/ /2012 [facility] BEDSIDE Gluc POC 140 mg/dL - 11/14 OR 3Interpretive [facility] GLUCOSE Lifsc Data: [facility]ING Center Upper Reportable Limit: 200 mg/dL. BEDSIDE Comment1 Notify 11/14 NA [facility] GLUCOSE MARTÍNEZ/ /2012 [facility] BEDSIDE Gluc POC 201 mg/dL - 11/14 OR 4Interpretive [facility] GLUCOSE Lifsc Data: [facility] [place] Upper Reportable Limit: 200 mg/dL. CHEMISTRY A/G Ratio 0.9 0.7 - 1.6 11/14 Normal [facility] CHEMISTRY AST 41 unit/L 0 - 37 11/14 HI [facility] CHEMISTRY eGFR 104 11/14 NA 6Result Comment: The eGFR is calculated using the CKD-EPI formula. In most young, healthy individuals the eGFR will be > 90 mL/min/1.73m2. The eGFR declines with age. An eGFR of 60-89 may be normal in [facility] mL/min/1.7 some populations, particularly the elderly, for whom the CKD-EPI formula has not been extensively validated. Use of the eGFR is not recommended in the following populations: [address] Individuals with unstable creatinine concentrations, including [...] 2.9 g/dL 3.5 - 5.0 11/14 LOW [facility] CHEMISTRY Alk Phos 84 unit/L 39 - 136 11/14 Normal [facility] CHEMISTRY BUN 3 mg/dL 7 - 22 11/14 LOW [facility] CHEMISTRY Creatinine 0.7 mg/dL 0.5 - 1.4 11/14 Normal [facility] CHEMISTRY Sodium Lvl 136 meq/L 135 - 145 11/14 Normal [facility] CHEMISTRY Total Protein 6.3 g/dL 6.4 - 8.4 11/14 LOW [facility] CHEMISTRY ALT 51 unit/L 0 - 65 11/14 Normal [facility] CHEMISTRY Potassium Lvl 3.7 meq/L 3.5 - 5.1 11/14 Normal [facility] CHEMISTRY Chloride Lvl 101 meq/L 95 - 109 11/14 Normal [facility] CHEMISTRY Glucose Lvl 210 mg/dL 70 - 99 11/14 OR 9Interpretive Data: Adult reference range values reflect the clinical guidelines of the [place] [employer]. [facility] Center CHEMISTRY AGAP 15.7 meq/L 10.0 - 11/14 Normal [place] 20.0 /2012 [facility] CHEMISTRY B/C Ratio 4 6 - 25 11/14 LOW [facility] CHEMISTRY Globulin 3.4 g/dL 2.0 - 4.0 11/14 Normal [facility] CHEMISTRY CO2 23 meq/L 24 - 32 11/14 LOW [facility] CHEMISTRY Bili Total 0.4 mg/dL 0.2 - 1.3 11/14 Normal [facility] CHEMISTRY Calcium Lvl 8.5 mg/dL 8.5 - 10.5 11/14 Normal [facility] CHEMISTRY Phosphorus 3.6 mg/dL 2.5 - 4.5 11/14 Normal [facility] CHEMISTRY Magnesium Lvl 1.5 mg/dL 1.8 - 2.4 11/14 LOW [facility] CHEMISTRY Ca Norm mgdL 3.52 mg/dL 4.65 - 11/14 LOW [facility] 5. [facility] CHEMISTRY Ca Ion mgdL 3.32 mg/dL 4.65 - 11/14 CRIT [place] 5. [facility] CHEMISTRY Ca Ion 0.83 1.16 - 11/14 CRIT 15Result [place] mMol/L 1. Comment: [facility] Result(s) called to Arlin Rose at 11/14/2012 00:23:56 CDT_ by_tvs. Read back OK. CHEMISTRY Ca Norm 0.88 1.16 - 11/14 CRIT [place] mMol/L 1. Medical [place] HEMATOLOGY Platelet 221 K/CMM 133 - 450 11/14 Normal [facility] HEMATOLOGY RDW 19.0 % 11.5 - 03 HI [place] 14.5 /2012 Medical Center HEMATOLOGY MCHC 32.4 g/dL 32.0 - 11/14 Normal [place] 36.0 Medical Center HEMATOLOGY MCV 75.5 fL 81.0 - 11/14 [facility] [place] 99.0 /2012 [facility] HEMATOLOGY Hct 35.5 % 36.0 - 11/14 LOW [place] 48.0 /2012 [facility] HEMATOLOGY Hgb 11.5 g/dL 12.0 - 11/14 LOW [place] 16.0 Medical Center HEMATOLOGY MCH 24.5 pg 27.0 - 11/14 [facility] [place] 31.0 /2012 Medical Center HEMATOLOGY MPV 9.1 fL 7.4 - 10.4 11/14 Normal [facility] HEMATOLOGY RBC 4.70 M/CMM 4.20 - 03 Normal [place] 5.40 /2012 [facility] HEMATOLOGY WBC 8.6 K/CMM 3.7 - 10.4 11/14 Normal [facility] HEMATOLOGY Segs 53.3 % 45.0 - 11/14 Normal [place] 75.0 /2012 [facility] HEMATOLOGY Microcyte 1+ None Seen 11/14 ABN Medical *ABN* Center (11/13/2012 23:45:00) HEMATOLOGY Basophils # 0.1 K/CMM 0.0 - 0.2 11/14 Normal [facility] HEMATOLOGY Eosinophils # 0.2 K/CMM 0.0 - 0.5 11/14 Normal [facility] HEMATOLOGY Monocytes # 0.9 K/CMM 0.0 - 0.8 11/14 HI [facility] HEMATOLOGY Lymphocytes # 2.9 K/CMM 1.0 - 5.5 11/14 Normal [facility] HEMATOLOGY Monocytes 10.3 % 2.0 - 12.0 11/14 Normal [facility] HEMATOLOGY Lymphocytes 33.6 % 20.0 - 11/14 Normal [place] 40.0 [facility] HEMATOLOGY Segs-Bands # 4.6 K/CMM 1.5 - 8.1 11/14 Normal [facility] HEMATOLOGY Basophils 0.7 % 0.0 - 1.0 11/14 Normal [facility] HEMATOLOGY Eosinophils 2.1 % 0.0 - 4.0 11/14 Normal [facility] CHEMISTRY Lipase Lvl 43 unit/L 73 - 393 11/13 LOW [facility] CHEMISTRY Amylase Lvl 14 unit/L 25 - 115 11/13 LOW [facility] CHEMISTRY A/G Ratio 0.8 0.7 - 1.6 11/13 Normal [facility] CHEMISTRY AST 56 unit/L 0 - 37 11/13 HI [facility] CHEMISTRY Alk Phos 67 unit/L 39 - 136 11/13 Normal [facility] CHEMISTRY Globulin 2.9 g/dL 2.0 - 4.0 11/13 Normal [facility] CHEMISTRY Total Protein 5.3 g/dL 6.4 - 8.4 11/13 LOW [facility] CHEMISTRY Albumin Lvl 2.4 g/dL 3.5 - 5.0 11/13 LOW [facility] CHEMISTRY ALT 41 unit/L 0 - 65 11/13 Normal [facility] CHEMISTRY Bili Indirect 0.3 mg/dL 0.0 - 1.0 11/13 Normal [facility] CHEMISTRY Bili Direct 0.1 mg/dL 0.0 - 0.3 11/13 Normal [facility] CHEMISTRY Bili Total 0.4 mg/dL 0.2 - 1.3 11/13 Normal [facility] CHEMISTRY eGFR 137 11/13 NA 7Result Comment: The eGFR is calculated using the CKD-EPI formula. In most young, healthy individuals the eGFR will be > 90 mL/min/1.73m2. The eGFR declines with age. An eGFR of 60-89 may be normal in [facility] mL/min/1. some populations, particularly the elderly, for whom the CKD-EPI formula has not been extensively validated. Use of the eGFR is not recommended in the following populations: [address] Individuals with unstable creatinine concentrations, including [...] AGAP 17.3 meq/L 10.0 - 11/13 Normal [facility] 20.0 [facility] CHEMISTRY Calcium Lvl 6.7 mg/dL 8.5 - 10.5 11/13 CRIT 13Result Comment: [facility] Critical Center Result(s) called to _hansel gustafson at _11/13/2012 06:59:47 CDT bylg. Read back OK. CHEMISTRY CO2 17 meq/L 24 - 32 11/13 LOW [facility] CHEMISTRY Chloride Lvl 111 meq/L 95 - 109 11/13 HI [facility] CHEMISTRY Potassium Lvl 3.3 meq/L 3.5 - 5.1 11/13 LOW 5Result Comment: [facility]imen Center Slightly Hemolyzed. CHEMISTRY Sodium Lvl 142 meq/L 135 - 145 11/13 Normal [facility] CHEMISTRY Creatinine 0.3 mg/dL 0.5 - 1.4 11/13 LOW [facility] l /2012 [facility] Center CHEMISTRY BUN 3 mg/dL 7 - 22 11/13 [facility] Center CHEMISTRY Glucose Lvl 104 mg/dL 70 - 99 11/13 HI 10Interpretive Data: Adult reference range values reflect the clinical guidelines of the [place] [employer]. Medical Center CHEMISTRY Magnesium Lvl 1.3 mg/dL 1.8 - 2.4 11/13 LOW [facility] CHEMISTRY Phosphorus 2.8 mg/dL 2.5 - 4.5 11/13 Normal [facility] CHEMISTRY Ca Ion 1.01 1.16 - 11/13 [facility] [place] mMol/L 1. [facility] Center CHEMISTRY Ca Norm 1.07 1.16 - 11/13 [facility] mMol/L 1. [facility] CHEMISTRY Ca Norm mgdL 4.28 mg/dL 4.65 - 11/13 [facility] 5. [facility] Center CHEMISTRY Ca Ion mgdL 4.04 mg/dL 4.65 - 11/13 [facility] 5.20 Medical Center HEMATOLOGY MCV 78.6 fL 81.0 - 11/13 [facility] 99.0 /2012 [facility] HEMATOLOGY MPV 9.1 fL 7.4 - 10.4 11/13 Normal [facility] HEMATOLOGY MCHC 31.1 g/dL 32.0 - 11/13 [facility] [place] 36.0 /2012 [facility] HEMATOLOGY MCH 24.4 pg 27.0 - 11/13 [facility] 31.0 [facility] HEMATOLOGY Hct 29.4 % 36.0 - 03 [facility] [place] 48.0 /2012 Medical Center HEMATOLOGY RDW 19.1 % 11.5 - 03 [facility] [place] 14.5 Medical Center HEMATOLOGY Platelet 192 K/CMM 133 - 450 11/13 Normal [facility] HEMATOLOGY Hgb 9.1 g/dL 12.0 - 03 [facility] [place] 16.0 /2012 [facility] HEMATOLOGY RBC 3.74 M/CMM 4.20 - 03 [facility] [place] 5.40 /2012 [facility] Center HEMATOLOGY WBC 6.8 K/CMM 3.7 - 10.4 11/13 Normal [facility] HEMATOLOGY Plt Morph Normal 11/13 Normal Medical (11/13/2012 05:00:00) Center HEMATOLOGY Atypical 0.0 % <=0.0 11/13 Normal [facility] Lymph [facility] HEMATOLOGY RBC Morph Normal 11/13 Normal [facility] (11/13/2012 05:00:00) [place] HEMATOLOGY Eosinophils 2.0 % 0.0 - 4.0 11/13 Normal [facility] HEMATOLOGY Bands 0.0 % 0.0 - 11.0 11/13 Normal [facility] HEMATOLOGY Segs 51.0 % 45.0 - 11/13 Normal [facility] 75.0 [facility] HEMATOLOGY Eosinophils # 0.1 K/CMM 0.0 - 0.5 11/13 Normal [facility] HEMATOLOGY Segs-Bands # 3.5 K/CMM 1.5 - 8.1 11/13 Normal [facility] HEMATOLOGY Monocytes 5.0 % 2.0 - 12.0 11/13 Normal [facility] HEMATOLOGY Lymphocytes 42.0 % 20.0 - 11/13 HI [facility] 40.0 [facility] HEMATOLOGY Monocytes # 0.3 K/CMM 0.0 - 0.8 11/13 Normal [facility] HEMATOLOGY Lymphocytes # 2.9 K/CMM 1.0 - 5.5 11/13 [facility] INFECTIOUS C difficile Negative 1 Negative 11/13 Normal 1Interpretive Data: [employer] Clostridium difficile assay utilizes loop-mediated isothermal DNA amplification (LAMP) technology to detect a 204 bp region of the tcdA gene within the PaLoc gene [facility] segment present in all known toxigenic C. difficile strains. [facility] (11/12/2012 21:54:26) [place] The assay utilizes FDA cleared IVD reagents. Performance characteristics have been verified by the [facility] within the [facility]. The [facility] is authorized under the Clinical Laboratory Improvement Amendment of 1988 (CLIA-88) to perform high complexity testing. CHEMISTRY Total CK 25 unit/L 12 - 191 11/12 Normal [facility] CHEMISTRY Troponin-I null 0.00 - 11/12 Normal [facility] 0.40 [facility] CHEMISTRY eGFR 88 11/12 NA 8Result Comment: The eGFR is calculated using the CKD-EPI formula. In most young, healthy individuals the eGFR will be > 90 mL/min/1.73m2. The eGFR declines with age. An eGFR of 60-89 may be normal in [facility] mL/min/1. some populations, particularly the elderly, for whom the CKD-EPI formula has not been extensively validated. Use of the eGFR is not recommended in the following populations: [facility] Individuals with [...] AGAP 13.7 meq/L 10.0 - 11/12 Normal [facility] 20.0 [facility] CHEMISTRY Calcium Lvl 8.5 mg/dL 8.5 - 10.5 11/12 Normal [facility] CHEMISTRY CO2 25 meq/L 24 - 32 11/12 Normal [facility] CHEMISTRY Potassium Lvl 3.7 meq/L 3.5 - 5.1 11/12 Normal [facility] CHEMISTRY Sodium Lvl 138 meq/L 135 - 145 11/12 Normal [facility] CHEMISTRY Chloride Lvl 103 meq/L 95 - 109 11/12 Normal [facility] CHEMISTRY Creatinine 0.8 mg/dL 0.5 - 1.4 11/12 Normal [facility] CHEMISTRY BUN 5 mg/dL 7 - 22 11/12 LOW [facility] CHEMISTRY Glucose Lvl 40 mg/dL 70 - 99 11/12 CRIT 12Interpretive Data: Adult reference range values reflect the clinical guidelines of the [place] [employer]. [facility] CHEMISTRY Ca Norm mgdL 4.20 mg/dL 4.65 - 11/12 [facility] 01.23 [facility] CHEMISTRY Ca Norm 1.05 1.16 - 11/12 LOW [place] mMol/L 1. [facility] CHEMISTRY Ca Ion mgdL 4.00 mg/dL 4.65 - 11/12 LOW [facility] 01.23 [facility] CHEMISTRY Ca Ion 1.00 1.16 - 11/12 LOW [facility] mMol/L 1.30 [facility] CHEMISTRY Magnesium Lvl 1.9 mg/dL 1.8 - 2.4 11/12 Normal [facility] CHEMISTRY Phosphorus 3.2 mg/dL 2.5 - 4.5 11/12 Normal [facility] HEMATOLOGY MCHC 32.0 g/dL 32.0 - 11/12 Normal [place] 36.0 /2012 [facility] HEMATOLOGY MCH 24.1 pg 27.0 - 11/12 LOW [place] 31.0 [facility] HEMATOLOGY MCV 75.3 fL 81.0 - 11/12 LOW [facility] 99.0 /2012 [facility] HEMATOLOGY WBC 9.2 K/CMM 3.7 - 10.4 11/12 Normal [facility] HEMATOLOGY Platelet 233 K/CMM 133 - 450 11/12 Normal [facility] HEMATOLOGY MPV 9.1 fL 7.4 - 10.4 11/12 Normal [facility] HEMATOLOGY RDW 19.0 % 11.5 - 11/12 HI [place] 14.5 [facility] HEMATOLOGY RBC 4.19 M/CMM 4.20 - 11/12 [facility] 5.40 /2012 [facility] HEMATOLOGY Hgb 10.1 g/dL 12.0 - 11/12 LOW [facility] 16.0 [facility] HEMATOLOGY Hct 31.6 % 36.0 - 11/12 [facility] 48.0 /2012 [facility] HEMATOLOGY Hypochrom Slight None Seen 11/12 Normal [facility] (11/12/2012 00:19:00) Center HEMATOLOGY Large Plt Slight None Seen 11/12 ABN Medical *ABN* Center (11/12/2012 00:19:00) HEMATOLOGY Atypical 0.0 % <=0.0 11/12 Normal [facility] Lymphs [facility] HEMATOLOGY Basophils 1.0 % 0.0 - 1.0 11/12 Normal [facility] HEMATOLOGY Lymphocytes 39.0 % 20.0 - 11/12 Normal [facility] 40.0 [facility] HEMATOLOGY Bands 0.0 % 0.0 - 11.0 11/12 Normal [facility] HEMATOLOGY Eosinophils 2.0 % 0.0 - 4.0 11/12 Normal [facility] HEMATOLOGY Monocytes 6.0 % 2.0 - 12.0 11/12 Normal [facility] HEMATOLOGY Segs 52.0 % 45.0 - 11/12 Normal [place] 75.0 [facility] HEMATOLOGY Basophils # 0.1 K/CMM 0.0 - 0.2 11/12 Normal [facility]2012 [facility] HEMATOLOGY Monocytes # 0.6 K/CMM 0.0 - 0.8 11/12 Normal [facility]2012 [facility] HEMATOLOGY Lymphocytes # 3.6 K/CMM 1.0 - 5.5 11/12 Normal [facility] HEMATOLOGY Segs-Bands # 4.8 K/CMM 1.5 - 8.1 11/12 Normal [facility] HEMATOLOGY Eosinophils # 0.2 K/CMM 0.0 - 0.5 11/12 Normal [facility] HEMATOLOGY Microcyte 1+ None Seen 11/11 [facility] [place] (11/11/2012 03:41:00) HEMATOLOGY Basophils # 0.1 K/CMM 0.0 - 0.2 11/11 Normal [facility] HEMATOLOGY Basophils 0.7 % 0.0 - 1.0 11/11 Normal [facility] HEMATOLOGY Microcyte 1+ None Seen 11/09 [facility] [place] (11/09/2012 05:12:00) URINALYSIS UA pH 5.0 5.0 - 8.0 11/08 Normal 2012 [facility] URINALYSIS UA Protein 20 mg/dL Negative 11/08 [facility] [place] (11/07/2012 20:54:00) URINALYSIS UA Turbidity Slight Clear 11/08 [facility] [place] (11/07/2012 20:54:00) URINALYSIS UA Spec Grav 1.010 <=1.030 11/08 Normal [facility] URINALYSIS UA Color Yellow Yellow 11/08 [facility] [place] (11/07/2012 20:54:00) URINALYSIS UA Bacteria Moderate /HPF None Seen 11/08 [facility] [place] (11/07/2012 20:54:00) URINALYSIS UA Mucus Few /LPF None Seen 11/08 [facility] [place] (11/07/2012 20:54:00) URINALYSIS UA WBC null 0 - 5 11/08 [facility] URINALYSIS UA RBC 4 /HPF 0 - 2 11/08 [facility] URINALYSIS UA Sq Epi Moderate /LPF Few 11/08 ABN [facility] *ABN* Center (11/07/2012 20:54:00) URINALYSIS UA Leuk Est Large Negative 11/08 [facility] *ABN* Center (11/07/2012 20:54:00) URINALYSIS UA Blood Trace Negative 11/08 [facility] *[facility]* [place] (11/07/2012 20:54:00) URINALYSIS UA Nitrite Negative Negative 11/08 Normal [facility] (11/07/2012 20:54:00) Center URINALYSIS UA Ketones 40 mg/dL Negative 11/08 [facility] [place] (11/07/2012 20:54:00) URINALYSIS UA Bili Negative Negative 11/08 [facility] *NA* Center (11/07/2012 20:54:00) URINALYSIS Micro? Performed 11/08 NA [facility] (11/07/2012 20:54:00) URINALYSIS UA <=1.0 0.1 - 1.0 11/08 [facility] Urobilinogen mg/dL Medical
*NA*< Center br/>(11/07 20:54:00) <sup> </sup> URINALYSIS UA Glucose >=1000mg/d 11/08 NA [facility] URINALYSIS UA Hyal Cast 37 /LPF 0 - 2 11/08 [facility] URINALYSIS UA Ketones 40 mg/dL Negative 11/07 [facility] *ABN* Center (11/07/2012 06:24:57) CHEMISTRY Hgb A1C [...] to lower CHEMISTRY Ketone 2.20 <=0.27 11/06 [facility] [place] Quantitative mmol/L /2012 [facility] [place] CHEMISTRY U Osmolality 207 300 - 800 11/06 LOW [place] mOsm/kg [facility] [place] CHEMISTRY POC A %FIO2 21.0 % 18.0 - 11/06 Normal [facility] 100.0 [facility] [place] CHEMISTRY POC A LA 0.9 mMol/L 0.5 - 2.2 11/06 Normal [facility] CHEMISTRY POC A Glu 281 mg/dL 70 - 99 11/06 [place] [facility] CHEMISTRY POC A Temp 37.0 Abby 11/06 NA [facility] CHEMISTRY POC A Source ART 11/06 NA [facility] CHEMISTRY POC A pH 7.45 7.35 - 11/06 Normal [facility] 7.45 [facility] CHEMISTRY POC A HCO3 24 mMol/L 22 - 26 11/06 Normal [facility] CHEMISTRY POC A PCO2 35 mm[Hg] 35 - 45 11/06 Normal [facility] CHEMISTRY POC A PO2 85 mm[Hg] 80 - 100 11/06 Normal [facility] CHEMISTRY POC A BE 0 mMol/L -2-2 - 2 11/06 Normal [facility] CHEMISTRY POC A O2 Sat 97.0 % 95.0 - 11/06 Normal [facility] 100.0 [facility] CHEMISTRY POC A Na 123 meq/L 135 - 145 11/06 LOW [facility] CHEMISTRY POC A Hct 31.0 % 36.0 - 11/06 [facility] 48.0 [facility] CHEMISTRY POC A Ca Ion 1.11 1.16 - 11/06 [facility] mMol/L 1.30 [facility] CHEMISTRY POC A K 3.7 meq/L 3.5 - 5.1 11/06 Normal [facility] CHEMISTRY POC A BE -4 mMol/L -2-2 - 2 11/06 LOW [facility] CHEMISTRY POC A HCO3 20 mMol/L 22 - 26 11/06 LOW [facility] CHEMISTRY POC A Source ART 11/06 NA [facility] CHEMISTRY POC A Temp 37.0 Abby 11/06 NA [facility] CHEMISTRY POC A pH 7.42 7.35 - 03 Normal [facility] 7.45 /2012 [facility] CHEMISTRY POC A PO2 81 mm[Hg] 80 - 100 11/06 Normal [facility] CHEMISTRY POC A O2 Sat 96.0 % 95.0 - 03 Normal [facility] 100.0 [facility] CHEMISTRY POC A PCO2 31 mm[Hg] 35 - 45 11/06 LOW [facility] CHEMISTRY POC A %FIO2 21.0 % 18.0 - 03 Normal [facility] 100.0 /2012 [facility] Microbiolog Culture: 03 [facility] y Urine /2012 [facility] CHEMISTRY Troponin-I null 0.00 - 11/06 Normal [facility] 0.40 /2012 [facility] CHEMISTRY Troponin-T null 0.000 - 11/06 Normal [facility] 0.100 /2012 [facility] CHEMISTRY Total CK 48 unit/L 12 - 191 11/06 Normal [facility] URINALYSIS UA <=1.0 0.1 - 1.0 11/06 [facility] Urobilinogen mg/dL Medical
*NA*< Center br/>(11/06 03:15:40) <sup> </sup> URINALYSIS UA Leuk Est Large Negative 11/06 [facility] *ABN* Center (11/06/2012 03:15:40) URINALYSIS UA Sq Epi Moderate /LPF Few 11/06 [facility] *ABN* Center (11/06/2012 03:15:40) URINALYSIS UA Mucus Few /LPF None Seen 11/06 [facility] Medical *NA* Center (11/06/2012 03:15:40) URINALYSIS UA Nitrite Negative Negative 11/06 Normal [facility] (11/06/2012 03:15:40) Center URINALYSIS UA Bacteria Occasional /HPF None Seen 11/06 [facility] *NA* Center (11/06/2012 03:15:40) URINALYSIS UA WBC 67 /HPF 0 - 5 11/06 [facility] Center URINALYSIS UA Blood Negative Negative 11/06 Normal [facility] (11/06/2012 03:15:40) Center URINALYSIS UA Bili Negative Negative 11/06 [facility] Medical *NA* Center (11/06/2012 03:15:40) URINALYSIS UA Ketones 60 mg/dL Negative 11/06 [facility] Medical *ABN* Center (11/06/2012 03:15:40) URINALYSIS UA pH 5.0 5.0 - 8.0 11/06 Normal [facility] URINALYSIS UA Glucose >=1000 mg/dL Negative 11/06 [facility] Medical *ABN* Center (11/06/2012 03:15:40) URINALYSIS UA Spec Grav 1.014 <=1.030 11/06 Normal [facility] URINALYSIS UA Protein Negative mg/dL Negative 11/06 Normal [facility] (11/06/2012 03:15:40) Center URINALYSIS UA Turbidity Slight Clear 11/06 ABN Medical *ABN* Center (11/06/2012 03:15:40) URINALYSIS UA Color Yellow Yellow 11/06 NA [facility] *NA* Center (11/06/2012 03:15:40) CHEMISTRY Troponin-I 0.02 ng/mL 0.00 - 11/06 Normal [facility] 0.40 [facility] CHEMISTRY Total CK 30 unit/L 12 - 191 11/06 Normal [facility] CHEMISTRY Troponin-T null 0.000 - 11/06 Normal [facility] 0.100 [facility] CHEMISTRY Ketone 3.00 <=0.27 11/06 [facility] Quantitative mmol/L /2012 [facility] CHEMISTRY Lipase Lvl 89 unit/L 73 - 393 11/06 Normal [facility] CHEMISTRY Globulin 4.3 g/dL 2.0 - 4.0 11/06 [place] [facility] CHEMISTRY A/G Ratio 0.9 0.7 - 1.6 11/06 Normal [facility] CHEMISTRY B/C Ratio 7 6 - 25 11/06 Normal [facility] CHEMISTRY Albumin Lvl 3.7 g/dL 3.5 - 5.0 11/06 Normal [facility] CHEMISTRY Total Protein 8.0 g/dL 6.4 - 8.4 11/06 Normal [facility] CHEMISTRY ALT 62 unit/L 0 - 65 11/06 Normal [facility] CHEMISTRY Alk Phos 119 unit/L 39 - 136 11/06 Normal [facility] CHEMISTRY Bili Total 0.5 mg/dL 0.2 - 1.3 11/06 Normal [facility] CHEMISTRY AST 44 unit/L 0 - 37 11/06 HI [facility] [place] HEMATOLOGY Polychrom Slight None Seen 11/06 Normal Medical (11/05/2012 20:40:00) Center HEMATOLOGY Hypochrom Slight None Seen 11/06 Normal Medical (11/05/2012 20:40:00) Center HEMATOLOGY Bands 1.0 % 0.0 - 11.0 11/06 Normal [facility] HEMATOLOGY Anisocyte 1+ None Seen 11/06 ABN Medical *ABN* Center (11/05/2012 20:40:00) HEMATOLOGY Atypical 0.0 % <=0.0 11/06 Normal [facility] HEMATOLOGY Macrocyte 1+ None Seen 11/06 [facility] Medical *ABN* [place] (11/05/2012 20:40:00) HEMATOLOGY Plt Morph Normal 11/06 Normal [facility] (11/05/2012 20:40:00) Center HEMATOLOGY INR 0.98 0.85 - 11/06 Normal 16Interpretive Data: RECOMMENDED RANGES FOR PROTIME INR: [facility] 1. 2.0-3.0 for most medical and surgical thromboembolic states. Medical 2.5-3.5 for artificial heart valves and recurrent embolism. Center INR SHOULD BE USED ONLY FOR PATIENTS ON STABLE ANTICOAGULANT THERAPY. HEMATOLOGY PT 13.2 s 12.0 - 11/06 Normal [facility] 14.7 [facility] [place] HEMATOLOGY PTT 26.4 s 22.9 - 11/06 Normal 17Interpretiv [facility] 35.8 e Data: [facility] Heparin Center Therapeutic Range: 57 - 92 Seconds BEDSIDE Gluc POC null - 11/01 CRIT 3Interpretive [facility] GLUCOSE Lifscn Data: Medical TESTING Center Upper Reportable Limit: 200 mg/dL. BEDSIDE Comment1 Notify 11/01 NA [facility] GLUCOSE RN/ /2012 [facility] BEDSIDE Gluc POC 237 mg/dL - 10/31 HI 4Interpretive [facility] GLUCOSE Lifscn Data: [facility]ING Center Upper Reportable Limit: 200 mg/dL. BEDSIDE Gluc POC 357 mg/dL - 10/31 HI 5Interpretive [facility] GLUCOSE Lifscn Data: [facility] Center Upper Reportable Limit: 200 mg/dL. BEDSIDE Comment1 Notify 10/31 NA [facility] GLUCOSE RN/ [facility] Center CHEMISTRY Phosphorus 4.2 mg/dL 2.5 - 4.5 10/31 Normal [facility] CHEMISTRY Ca Norm mgdL 4.64 mg/dL 4.65 - 10/31 LOW [facility] 5. [facility] CHEMISTRY Ca Ion mgdL 4.44 mg/dL 4.65 - 10/31 LOW [facility] 5.20 [facility] CHEMISTRY Ca Norm 1.16 1.16 - 10/31 Normal [place] mMol/L 1. [facility] CHEMISTRY Ca Ion 1.11 1.16 - 10/31 LOW [facility] mMol/L . [facility] CHEMISTRY AGAP 16.9 meq/L 10.0 - 10/31 Normal [facility] 20.0 [facility] CHEMISTRY eGFR 67 10/31 NA 7Result Comment: The eGFR is calculated using the CKD-EPI formula. In most young, healthy individuals the eGFR will be > 90 mL/min/1.73m2. The eGFR declines with age. An eGFR of 60-89 may be normal in [facility] mL/min/1.7 some populations, particularly the elderly, for whom the CKD-EPI formula has not been extensively validated. Use of the eGFR is not recommended in the following populations: [place] [address] Center Individuals with unstable creatinine concentrations, including [...] 1.0 mg/dL 0.5 - 1.4 10/31 Normal [facility] Lvl [facility] Center CHEMISTRY Sodium Lvl 133 meq/L 135 - 145 10/31 LOW [facility] CHEMISTRY Calcium Lvl 8.3 mg/dL 8.5 - 10.5 10/31 LOW [facility] CHEMISTRY Potassium Lvl 3.9 meq/L 3.5 - 5.1 10/31 Normal [facility] CHEMISTRY Chloride Lvl 94 meq/L 95 - 109 10/31 LOW [facility] CHEMISTRY CO2 26 meq/L 24 - 32 10/31 Normal [facility] CHEMISTRY BUN 8 mg/dL 7 - 22 10/31 Normal [facility] CHEMISTRY Glucose Lvl 75 mg/dL 70 - 99 10/31 Normal 10Interpretive Data: Adult reference range values reflect the clinical guidelines of the [place] [employer]. [facility] Center CHEMISTRY Magnesium Lvl 1.9 mg/dL 1.8 - 2.4 10/31 Normal [facility] HEMATOLOGY MPV 9.4 fL 7.4 - 10.4 10/31 Normal [facility] HEMATOLOGY Hgb 9.7 g/dL 12.0 - 10/31 [facility] 16.0 [facility] HEMATOLOGY RBC 4.06 M/CMM 4.20 - 10/31 [facility] 5.40 [facility] HEMATOLOGY MCV 74.3 fL 81.0 - 10/31 [facility] 99.0 [facility] HEMATOLOGY Hct 30.2 % 36.0 - 10/31 [facility] 48.0 [facility] HEMATOLOGY MCHC 32.2 g/dL 32.0 - 10/31 Normal [facility] 36.0 [facility] HEMATOLOGY MCH 23.9 pg 27.0 - 10/31 [facility] 31.0 [facility] HEMATOLOGY Platelet 199 K/CMM 133 - 450 10/31 Normal [facility] HEMATOLOGY RDW 17.5 % 11.5 - 10/31 [facility] 14.5 [facility] HEMATOLOGY WBC 9.4 K/CMM 3.7 - 10.4 10/31 Normal [facility] HEMATOLOGY Lymphocytes # 2.7 K/CMM 1.0 - 5.5 10/31 Normal [facility] HEMATOLOGY Basophils 0.6 % 0.0 - 1.0 10/31 Normal [facility] HEMATOLOGY Segs-Bands # 5.2 K/CMM 1.5 - 8.1 10/31 [facility] HEMATOLOGY Microcyte 1+ None Seen 10/31 [facility] Medical *ABN* Center (10/31/2012 04:00:00) HEMATOLOGY Monocytes # 1.1 K/CMM 0.0 - 0.8 10/31 [facility] Medical Center HEMATOLOGY Eosinophils # 0.3 K/CMM 0.0 - 0.5 10/31 Normal [facility] HEMATOLOGY Basophils # 0.1 K/CMM 0.0 - 0.2 10/31 Normal [facility] HEMATOLOGY Segs 55.2 % 45.0 - 10/31 Normal [facility] 75.0 [facility] HEMATOLOGY Monocytes 11.8 % 2.0 - 12.0 10/31 Normal [facility] HEMATOLOGY Lymphocytes 28.9 % 20.0 - 10/31 Normal [place] 40.0 [facility] HEMATOLOGY Eosinophils 3.5 % 0.0 - 4.0 10/31 Normal [facility] BEDSIDE Comment1 Notify 10/31 NA [facility] GLUCOSE RN/MD [facility] CHEMISTRY Ca Norm mgdL 4.92 mg/dL 4.65 - 10/30 Normal [facility] 5. [facility] CHEMISTRY Ca Ion mgdL 4.76 mg/dL 4.65 - 10/30 Normal [facility] 5. [facility] CHEMISTRY Ca Norm 1.23 1.16 - 10/30 Normal [facility] mMol/L 1. [facility] CHEMISTRY Ca Ion 1.19 1.16 - 10/30 Normal [facility] mMol/L 1. [facility] CHEMISTRY Phosphorus 3.8 mg/dL 2.5 - 4.5 10/30 Normal [facility] CHEMISTRY Magnesium Lvl 1.9 mg/dL 1.8 - 2.4 10/30 Normal [facility] CHEMISTRY eGFR 88 10/30 NA 8Result Comment: The eGFR is calculated using the CKD-EPI formula. In most young, healthy individuals the eGFR will be > 90 mL/min/1.73m2. The eGFR declines with age. An eGFR of 60-89 may be normal in [facility] mL/min/1.7 /2012 some populations, particularly the elderly, for whom the CKD-EPI formula has not been extensively validated. Use of the eGFR is not recommended in the following populations: [address] Individuals with unstable creatinine concentrations, including [...] values reflect the clinical guidelines of the [place] [employer]. [facility] CHEMISTRY Creatinine 0.8 mg/dL 0.5 - 1.4 10/30 Normal [facility] Lvl [facility] CHEMISTRY BUN 6 mg/dL 7 - 22 10/30 LOW [facility] CHEMISTRY Sodium Lvl 132 meq/L 135 - 145 10/30 LOW [facility] Center CHEMISTRY Calcium Lvl 8.5 mg/dL 8.5 - 10.5 10/30 Normal [facility] Center CHEMISTRY CO2 29 meq/L 24 - 32 10/30 Normal [facility] CHEMISTRY Chloride Lvl 92 meq/L 95 - 109 10/30 LOW [facility] CHEMISTRY Potassium Lvl 3.8 meq/L 3.5 - 5.1 10/30 Normal [facility] CHEMISTRY AGAP 14.8 meq/L 10.0 - 10/30 Normal [facility] 20.0 [facility] HEMATOLOGY Platelet 245 K/CMM 133 - 450 10/30 Normal [facility] HEMATOLOGY MPV 9.4 fL 7.4 - 10.4 10/30 Normal [facility] HEMATOLOGY Hct 33.1 % 36.0 - 10/30 [facility] 48.0 [facility] HEMATOLOGY RBC 4.47 M/CMM 4.20 - 10/30 Normal [facility] 5.40 /2012 [facility] [place] HEMATOLOGY WBC 11.0 K/CMM 3.7 - 10.4 10/30 [facility] HEMATOLOGY Hgb 10.6 g/dL 12.0 - 10/30 [facility] 16.0 [facility] HEMATOLOGY MCHC 31.9 g/dL 32.0 - 10/30 LOW [facility] 36.0 [facility] HEMATOLOGY MCV 74.1 fL 81.0 - 10/30 [facility] 99.0 [facility] [place] HEMATOLOGY MCH 23.7 pg 27.0 - 10/30 LOW [facility] 31.0 [facility] HEMATOLOGY RDW 16.9 % 11.5 - 10/30 HI [facility] 14.5 /2012 Medical Center HEMATOLOGY PTT 28.1 s 22.9 - 10/30 Normal 25Interpretiv [facility] 35.8 /2012 e Data: [facility] Therapeutic Range: 57 - 92 Seconds HEMATOLOGY PT 13.7 s 12.0 - 10/30 Normal [facility] 14.7 [facility] HEMATOLOGY INR 1.03 0.85 - 10/30 Normal 22Interpretive Data: RECOMMENDED RANGES FOR PROTIME INR: [facility] 09.22 2.0-3.0 for most medical and surgical thromboembolic states. Medical 2.5-3.5 for artificial heart valves and recurrent embolism. Center INR SHOULD BE USED ONLY FOR PATIENTS ON STABLE ANTICOAGULANT THERAPY. HEMATOLOGY Segs-Bands # 7.5 K/CMM 1.5 - 8.1 10/30 Normal [facility] HEMATOLOGY Basophils 0.4 % 0.0 - 1.0 10/30 Normal [facility] HEMATOLOGY Monocytes # 1.1 K/CMM 0.0 - 0.8 10/30 HI [facility] HEMATOLOGY Lymphocytes # 2.1 K/CMM 1.0 - 5.5 10/30 Normal [facility] HEMATOLOGY Microcyte 1+ None Seen 10/30 ABN [facility] *ABN* Center (10/30/2012 00:20:00) HEMATOLOGY Eosinophils # 0.2 K/CMM 0.0 - 0.5 10/30 Normal [facility] HEMATOLOGY Segs 68.3 % 45.0 - 10/30 Normal [facility] 75.0 [facility] HEMATOLOGY Lymphocytes 18.9 % 20.0 - 10/30 LOW [facility] 40.0 [facility] HEMATOLOGY Monocytes 10.3 % 2.0 - 12.0 10/30 Normal [facility] HEMATOLOGY Eosinophils 2.1 % 0.0 - 4.0 10/30 Normal [facility] CHEMISTRY Magnesium Lvl 2.1 mg/dL 1.8 - 2.4 10/29 Normal [facility] CHEMISTRY Phosphorus 4.1 mg/dL 2.5 - 4.5 10/29 Normal [facility] CHEMISTRY Ca Ion mgdL 3.96 mg/dL 4.65 - 10/29 LOW [facility] 5. [facility] CHEMISTRY Ca Norm 1.01 1.16 - 10/29 LOW [place] mMol/L 1. [facility] CHEMISTRY Ca Ion 0.99 1.16 - 10/29 LOW [facility] mMol/L 1. [facility] CHEMISTRY Ca Norm mgdL 4.04 mg/dL 4.65 - 10/29 LOW [facility] 5.20 [facility] CHEMISTRY eGFR 104 10/29 NA 9Result Comment: The eGFR is calculated using the CKD-EPI formula. In most young, healthy individuals the eGFR will be > 90 mL/min/1.73m2. The eGFR declines with age. An eGFR of 60-89 may be normal in [facility] mL/min/1. some populations, particularly the elderly, for whom the CKD-EPI formula has not been extensively validated. Use of the eGFR is not recommended in the following populations: [address] Individuals with unstable creatinine concentrations, including [...] 0.7 mg/dL 0.5 - 1.4 10/29 Normal [facility] CHEMISTRY BUN 3 mg/dL 7 - 10/29 LOW [facility] CHEMISTRY Calcium Lvl 8.9 mg/dL 8.5 - 10.5 10/29 Normal [facility] CHEMISTRY Glucose Lvl 90 mg/dL 70 - 99 10/29 Normal 12Interpretive Data: Adult reference range values reflect the clinical guidelines of the [place] [employer]. [facility] CHEMISTRY Chloride Lvl 99 meq/L 95 - 109 10/29 Normal [facility] CHEMISTRY Potassium Lvl 4.4 meq/L 3.5 - 5.1 10/29 Normal [facility] CHEMISTRY CO2 27 meq/L 24 - 32 10/29 Normal [facility] CHEMISTRY Sodium Lvl 139 meq/L 135 - 145 10/29 Normal [facility] CHEMISTRY AGAP 17.4 meq/L 10.0 - 10/29 Normal [facility] 20.0 [facility] HEMATOLOGY PTT 23.7 s 22.9 - 10/29 Normal 26Interpretiv [facility] 35.8 e Data: [facility] Therapeutic Range: 57 - 92 Seconds HEMATOLOGY PT 13.4 s 12.0 - 10/29 Normal [facility] 14.7 [facility] HEMATOLOGY INR 1.00 0.85 - 10/29 Normal 23Interpretive Data: RECOMMENDED RANGES FOR PROTIME INR: [facility] 1. 2.0-3.0 for most medical and surgical thromboembolic states. Medical 2.5-3.5 for artificial heart valves and recurrent embolism. Center INR SHOULD BE USED ONLY FOR PATIENTS ON STABLE ANTICOAGULANT THERAPY. HEMATOLOGY RDW 17.1 % 11.5 - 10/29 HI [facility] 14.5 /2012 [facility] HEMATOLOGY MCH 23.8 pg 27.0 - 10/29 LOW [facility] 31.0 /2012 [facility] HEMATOLOGY MCHC 32.2 g/dL 32.0 - 10/29 Normal [facility] 36.0 /2012 [facility] HEMATOLOGY Hct 33.6 % 36.0 - 10/29 [facility] 48.0 /2012 [facility] HEMATOLOGY MCV 74.0 fL 81.0 - 10/29 LOW [facility] 99.0 /2012 [facility] HEMATOLOGY Platelet 233 K/CMM 133 - 450 10/29 Normal [facility] HEMATOLOGY MPV 9.9 fL 7.4 - 10.4 10/29 Normal [facility] HEMATOLOGY RBC 4.54 M/CMM 4.20 - 10/29 [facility] 5.40 /2012 [facility] HEMATOLOGY Hgb 10.8 g/dL 12.0 - 10/29 LOW [facility] 16.0 /2012 [facility] HEMATOLOGY WBC 9.7 K/CMM 3.7 - 10.4 10/29 Normal [facility] HEMATOLOGY Lymphocytes # 2.6 K/CMM 1.0 - 5.5 10/29 Normal [facility] HEMATOLOGY Basophils 0.7 % 0.0 - 1.0 10/29 Normal [facility] HEMATOLOGY Segs-Bands # 6.0 K/CMM 1.5 - 8.1 10/29 Normal [facility] HEMATOLOGY Monocytes # 0.7 K/CMM 0.0 - 0.8 10/29 Normal [facility] HEMATOLOGY Eosinophils # 0.3 K/CMM 0.0 - 0.5 10/29 Normal [facility] HEMATOLOGY Basophils # 0.1 K/CMM 0.0 - 0.2 10/29 Normal [facility] HEMATOLOGY Microcyte 1+ None Seen 10/29 ABN Medical *ABN* Center (10/29/2012 00:56:00) HEMATOLOGY Segs 61.5 % 45.0 - 10/29 Normal [facility] 75.0 [facility] HEMATOLOGY Lymphocytes 26.8 % 20.0 - 10/29 Normal [facility] 40.0 [facility] HEMATOLOGY Monocytes 7.6 % 2.0 - 12.0 10/29 Normal [facility] HEMATOLOGY Eosinophils 3.4 % 0.0 - 4.0 10/29 Normal [facility] CHEMISTRY Amylase Lvl 27 unit/L 25 - 115 10/28 Normal [facility] CHEMISTRY Lipase Lvl 58 unit/L 73 - 393 10/28 LOW [facility] CHEMISTRY Bili Indirect 0.2 mg/dL 0.0 - 1.0 10/28 Normal [facility] CHEMISTRY Globulin 3.4 g/dL 2.0 - 4.0 10/28 Normal [facility] CHEMISTRY A/G Ratio 0.8 0.7 - 1.6 10/28 Normal [facility] CHEMISTRY AST 24 unit/L 0 - 37 10/28 Normal [facility] CHEMISTRY Bili Total 0.3 mg/dL 0.2 - 1.3 10/28 Normal [facility] CHEMISTRY Total Protein 6.2 g/dL 6.4 - 8.4 10/28 LOW [facility] CHEMISTRY ALT 23 unit/L 0 - 65 10/28 Normal [facility] CHEMISTRY Albumin Lvl 2.8 g/dL 3.5 - 5.0 10/28 LOW [facility] CHEMISTRY Alk Phos 85 unit/L 39 - 136 10/28 Normal [facility] CHEMISTRY Bili Direct 0.1 mg/dL 0.0 - 0.3 10/28 Normal [facility] HEMATOLOGY PTT 23.9 s 22.9 - 10/28 Normal 27Interpretiv [facility] 35.8 /2012 e Data: [facility] Therapeutic Range: 57 - 92 Seconds HEMATOLOGY PT 13.5 s 12.0 - 02 Normal [facility] 14.7 [facility] HEMATOLOGY INR 1.01 0.85 - 10/28 Normal 24Interpretive Data: RECOMMENDED RANGES FOR PROTIME INR: [facility] 1.17 2.0-3.0 for most medical and surgical thromboembolic states. Medical 2.5-3.5 for artificial heart valves and recurrent embolism. Center INR SHOULD BE USED ONLY FOR PATIENTS ON STABLE ANTICOAGULANT THERAPY. VIRAL - Influ B Negative 6 Negative 10/28 Normal 6Interpretive [facility] SEROLOGY Data: Due Medical (10/27/2012 18:02:02) [...] - Influ A Negative Negative 10/28 Normal [facility] SEROLOGY /2012 Medical (10/27/2012 18:02:02) Center CHEMISTRY Vitamin D, 16 ng/mL 30 - 100 10/25 LOW 13Interpretive Data: Reference range is based on recommendations in the Endocrine [facility] 25-[place], /2012 Society Clinical Practice Guideline (J Clin Endocrinol Metab Medical 2011;96:5947-5100) Center CHEMISTRY Hgb A1C 8.4 % 10/25 [...] 87 mg/dL 0 - 129 10/25 Normal [facility] CHEMISTRY HDL 35 mg/dL >=35 10/25 Normal [facility] CHEMISTRY Trig 101 mg/dL 0 - 200 10/25 Normal [facility] CHEMISTRY Chol 142 mg/dL 120 - 200 10/25 Normal [facility] CHEMISTRY CHD Risk 4.06 3.90 - 10/25 Normal [facility] 5.80 [facility] CHEMISTRY Troponin-I 5.43 ng/mL 0.00 - 10/25 CRIT 18Result [facility] 0.40 Comment: Medical Critical Center Result(s) called to Jelani Rasmussen at 10/25/2012 00:47:48 COMPUTER SYSTEMS AUDITOR by ISAAC. Read back OK. CHEMISTRY Troponin-T 0.693 0.000 - 10/25 CRIT 15Result [facility] ng/mL 0.100 /2012 Comment: Medical Critical Center Result(s) called to daisy otoole at 10/25/2012 01:18:09 COMPUTER SYSTEMS AUDITOR by tac. Read back OK. HEMATOLOGY Basophils # 0.2 K/CMM 0.0 - 0.2 10/25 Normal [facility] HEMATOLOGY Plt Morph Normal 10/25 Normal Medical (10/25/2012 00:15:00) Center CHEMISTRY ALT 15 unit/L 0 - 65 10/24 Normal [facility] CHEMISTRY Albumin Lvl 2.7 g/dL 3.5 - 5.0 10/24 LOW [facility] CHEMISTRY Bili Total 0.5 mg/dL 0.2 - 1.3 10/24 Normal [facility] CHEMISTRY Alk Phos 83 unit/L 39 - 136 10/24 Normal [facility] CHEMISTRY Bili Direct 0.2 mg/dL 0.0 - 0.3 10/24 Normal [facility] CHEMISTRY Total Protein 5.8 g/dL 6.4 - 8.4 10/24 LOW [facility] CHEMISTRY AST 41 unit/L 0 - 37 10/24 HI [facility] CHEMISTRY Bili Indirect 0.3 mg/dL 0.0 - 1.0 10/24 Normal [facility] CHEMISTRY Globulin 3.1 g/dL 2.0 - 4.0 10/24 Normal [facility] CHEMISTRY A/G Ratio 0.9 0.7 - 1.6 10/24 Normal [facility] CHEMISTRY POC A Mode NC-3LPM 10/24 NA [facility] CHEMISTRY POC A HCO3 19 mMol/L 22 - 26 10/24 LOW [facility] CHEMISTRY POC A O2 Sat 98.0 % 95.0 - 10/24 Normal [facility] 100.0 [facility] CHEMISTRY POC A BE -6 mMol/L -2-2 - 2 10/24 LOW [facility] CHEMISTRY POC A PO2 103 mm[Hg] 80 - 100 10/24 HI [facility] CHEMISTRY POC A pH 7.35 7.35 - 10/24 LOW [facility] 7.45 [facility] CHEMISTRY POC A PCO2 34 mm[Hg] 35 - 45 10/24 LOW [facility] Center CHEMISTRY POC A Temp 37.0 Abby 10/24 NA [facility] Center CHEMISTRY POC A Source ART 10/24 NA [facility] Center CHEMISTRY Troponin-T 0.688 0.000 - 10/24 CRIT 16Result [facility] ng/mL 0.100 Comment: Medical Critical Center Result(s) called to Maribel Bustos at 10/24/2012 13:23:46 COMPUTER SYSTEMS AUDITOR by lwb . Read back OK. CHEMISTRY Troponin-I 7.61 ng/mL 0.00 - 10/24 CRIT 19Result [facility] 0.40 Comment: Medical Critical Center Result(s) called to mariana bustos at _ 10/24/2012 13:37:22 CSTby_lss. Read back OK. CHEMISTRY Total CK 150 unit/L 12 - 10/24 Normal [facility] Center CHEMISTRY Lactic Acid 0.7 mMol/L 0.5 - 2.2 10/24 Normal [facility] Lvl Medical Center CHEMISTRY CK MB Index 11.0 0.0 - 2.5 10/24 HI [facility] Center CHEMISTRY CK MB 16.5 ng/mL 0.5 - 3.6 10/24 HI [facility] CHEMISTRY Troponin-T 0.750 0.000 - 10/24 CRIT 17Result [facility] ng/mL 0.100 Comment: Medical Critical Center Result(s) called to Lyn King at 10/24/2012 09:52:38 COMPUTER SYSTEMS AUDITOR by lwb . Read back OK. CHEMISTRY Troponin-I 7.60 ng/mL 0.00 - 10/24 CRIT 20Result [facility] 0.40 Comment: Medical Critical Center Result(s) called to romero beltre at _10/24/2012 09:50:18 COMPUTER SYSTEMS AUDITOR by_lss. Read back OK. CHEMISTRY Total CK 170 unit/L - 10/24 Normal 14Result Comment: Medical Specimen Center Moderately Hemolyzed. CHEMISTRY CK MB Index 10.5 0.0 - 2.5 10/24 [facility] CHEMISTRY CK MB 17.8 ng/mL 0.5 - 3.6 10/24 [facility] CHEMISTRY Ketone 0.07 <=0.27 10/24 Normal [facility] [place] Quantitative mmol/L [facility] Center CHEMISTRY Ketone 2.61 <=0.27 10/24 HI [facility] Quantitative mmol/L Medical Center CHEMISTRY CK MB 30.9 ng/mL 0.5 - 3.6 10/24 HI [facility] CHEMISTRY CK MB Index 12.2 0.0 - 2.5 10/24 HI [facility] CHEMISTRY Total CK 254 unit/L 12 - 191 10/24 HI [facility] CHEMISTRY Lactic Acid 0.6 mMol/L 0.5 - 2.2 10/24 Normal [facility] CHEMISTRY POC V O2 Sat 56.0 % 40.0 - 10/24 Normal [place] 70.0 Medical Center CHEMISTRY POC V HCO3 22 mmol/L 22 - 26 10/24 Normal [facility] CHEMISTRY POC V PO2 32 mm[Hg] 20 - 49 10/24 Normal [facility] CHEMISTRY POC V BE -4 mmol/L -2-2 - 2 10/24 LOW [facility] CHEMISTRY POC V PCO2 41 mm[Hg] 38 - 52 10/24 Normal [facility] Center CHEMISTRY POC V pH 7.33 7.28 - 10/24 Normal [facility] 7.42 Medical Center CHEMISTRY POC V Temp 37.0 Abby 10/24 NA [facility] Center CHEMISTRY POC V Source MARK 10/24 NA Medical Center CHEMISTRY Ketone 0.93 <=0.27 10/24 HI [facility] Quantitative mmol/L [facility] Center Microbiolog Culture: 10/24 y Urine Medical Center CHEMISTRY Lactic Acid 0.6 mMol/L 0.5 - 2.2 10/23 Normal [facility] Center Microbiolog Culture: 10/23 y Blood Medical Center CHEMISTRY POC A Source ART 10/23 NA Medical Center CHEMISTRY POC A PO2 144 mm[Hg] 80 - 100 10/23 HI [facility] CHEMISTRY POC A Temp 37.0 Abby 10/23 NA [facility] Center CHEMISTRY POC A pH 7.35 7.35 - 10/23 LOW [place] 7.45 Medical Center CHEMISTRY POC A Glu 159 mg/dL 70 - 99 10/23 HI [facility] CHEMISTRY POC A BE -5 mMol/L -2-2 - 2 10/23 LOW [facility] CHEMISTRY POC A O2 Sat 99.0 % 95.0 - 10/23 [facility] 100.0 [facility] CHEMISTRY POC A Hct 35.0 % 36.0 - 10/23 LOW [facility] 48.0 [facility] CHEMISTRY POC A HCO3 20 mMol/L 22 - 26 10/23 LOW [facility] CHEMISTRY POC A PCO2 36 mm[Hg] 35 - 45 10/23 Normal [facility] CHEMISTRY POC A LA 0.6 mMol/L 0.5 - 2.2 10/23 Normal [facility] CHEMISTRY POC A Ca Ion 1.20 1.16 - 10/23 [facility] mMol/L 1.30 [facility] CHEMISTRY POC A Na 133 meq/L 135 - 145 10/23 LOW [facility] CHEMISTRY POC A K 3.8 meq/L 3.5 - 5.1 10/23 Normal [facility] CHEMISTRY A/G Ratio 0.8 0.7 - 1.6 10/23 Normal [facility] CHEMISTRY AST 90 unit/L 0 - 37 10/23 HI [facility] CHEMISTRY Globulin 3.9 g/dL 2.0 - 4.0 10/23 Normal [facility] CHEMISTRY B/C Ratio 16 6 - 25 10/23 Normal [facility] CHEMISTRY Total Protein 7.2 g/dL 6.4 - 8.4 10/23 Normal [facility] CHEMISTRY Bili Total 0.5 mg/dL 0.2 - 1.3 10/23 Normal [facility] CHEMISTRY Albumin Lvl 3.3 g/dL 3.5 - 5.0 10/23 LOW [facility] CHEMISTRY Alk Phos 94 unit/L 39 - 136 10/23 Normal [facility] CHEMISTRY ALT 23 unit/L 0 - 65 10/23 Normal [facility] CHEMISTRY Osmolality 292 280 - 300 10/23 Normal [facility] mOsm/kg [facility] CHEMISTRY Myoglobin 128 ng/mL 25 - 72 10/23 [facility] Microbiolog Culture: 10/23 [facility] y [facility] Screen BACTERIAL - MRSA by PCR Positive 1, 2 10/23 ABN 2Interpretive Data: Interpretive Data: The [employer] LightCycler MRSA assay is a qualitative test for the direct detection of nasal colonization with methicillin-resistant Staphylococcus aureus (MRSA) to aid [facility] in the prevention and control of MRSA infections in healthcare settings. A positive result does not indicate an infection or require treatment. A negative result does not exclude colonization or infection. Medical *[facility]* Center The polymerase chain reaction (PCR) assay detects a proprietary sequence indicative of the integration of the SCCmec cassette into the Staphylococcus aureus chromosome, indicating the presence of MRSA D (10/23/2012 11:37:00) NA. The assay utilizes FDA cleared IVD reagents. Performance characteristics have been verified by the Molecular Diagnostic Laboratory within the [facility]. The Molecular Diagnostic Labor atory is authorized under the Clinical Laboratory Improvement Amendment of 1988 (CLIA-88) to perform high complexity testing. CHEMISTRY Osmolality 309 280 - 300 10/23 [facility] mOsm/kg [facility] CHEMISTRY POC A Hct 37.0 % 36.0 - 10/23 Normal [facility] 48.0 [facility] CHEMISTRY POC A Na 129 meq/L 135 - 145 10/23 LOW [facility] CHEMISTRY POC A LA 1.0 mMol/L 0.5 - 2.2 10/23 Normal [facility] CHEMISTRY POC A K 4.5 meq/L 3.5 - 5.1 10/23 Normal [facility] CHEMISTRY POC A Glu null 70 - 99 10[facility]23 [facility] CHEMISTRY POC A Ca Ion 1.18 1.16 - 10/23 [facility] mMol/L 1.30 [facility] CHEMISTRY POC A PCO2 30 mm[Hg] 35 - 45 10/23 CRIT [facility] CHEMISTRY POC A PO2 123 mm[Hg] 80 - 100 10/23 [facility] CHEMISTRY POC A Temp 37.0 Abby 10/23 NA [facility] CHEMISTRY POC A HCO3 14 mMol/L 22 - 26 10/23 [facility] CHEMISTRY POC A Source ART 10/23 NA [facility] CHEMISTRY POC A pH 7.27 7.35 - 10/23 [facility] 7.45 [facility] CHEMISTRY POC A BE -12 mMol/L -2-2 - 2 10/23 [facility] CHEMISTRY POC A O2 Sat 98.0 % 95.0 - 10/23 Normal [facility] 100.0 [facility] CHEMISTRY Bili Direct 0.4 mg/dL 0.0 - 0.3 10/23 HI [facility] CHEMISTRY Lipase Lvl 54 unit/L 73 - 393 10/23 LOW [facility] CHEMISTRY Amylase Lvl 28 unit/L 25 - 115 10/23 Normal [facility] CHEMISTRY B/C Ratio 10 6 - 25 10/23 Normal [facility] BLOOD BANK Antibody Scrn Negative 10/23 Normal [facility] Medical (10/23/2012 01:00:00) Center BLOOD BANK ABO/Rh A POS 10/23 Unknown [facility] URINALYSIS UA <=1.0 0.1 - 1.0 10/23 NA [facility] Urobilinogen mg/dL Medical
*NA*< Center br/>(10/23 00:01:00) <sup> </sup> URINALYSIS UA Sq Epi Moderate /LPF Few 10/23 ABN Medical *ABN* Center (10/23/2012 00:01:00) URINALYSIS UA Leuk Est Negative Negative 10/23 Normal [facility] (10/23/2012 00:01:00) Center URINALYSIS UA Nitrite Negative Negative 10/23 Normal [facility] (10/23/2012 00:01:00) Center URINALYSIS UA Blood Negative Negative 10/23 Normal [facility] (10/23/2012 00:01:00) Center URINALYSIS UA Glucose >=1000 mg/dL Negative 10/23 ABN Medical *ABN* Center (10/23/2012 00:01:00) URINALYSIS UA Protein 10 mg/dL Negative 10/23 ABN Medical *ABN* Center (10/23/2012 00:01:00) URINALYSIS UA pH 5.0 5.0 - 8.0 10/23 Normal [facility] URINALYSIS UA WBC 1 /HPF 0 - 5 10/23 Normal [facility] URINALYSIS UA Bili Negative Negative 10/23 NA Medical *NA* Center (10/23/2012 00:01:00) URINALYSIS UA Ketones >=150 mg/dL Negative 10/23 ABN Medical *ABN* Center (10/23/2012 00:01:00) URINALYSIS UA Spec Grav 1.015 <=1.030 10/23 Normal [facility] URINALYSIS UA Turbidity Clear Clear 10/23 Normal [facility] (10/23/2012 00:01:00) Center URINALYSIS UA Color Light Yellow Yellow 10/23 NA Medical *NA* Center (10/23/2012 00:01:00) BEDSIDE Gluc POC 265 mg/dL 70 - 99 10/08 HI 1Interpretive [facility] GLUCOSE Liftx Data: Medical TESTING Center Upper Reportable Limit: 200 mg/dL. BEDSIDE Comment1 Notify 10/08 [facility] GLUCOSE RN/MD [facility] TESTING Center BEDSIDE Comment1 Notify 10/08 [facility] GLUCOSE RN/MD [facility] TESTING Center BEDSIDE Gluc POC 204 mg/dL 70 - 99 10/08 HI 2Interpretive [facility] GLUCOSE Liftx Data: Medical TESTING Center Upper Reportable Limit: 200 mg/dL. CHEMISTRY Phosphorus 2.7 mg/dL 2.5 - 4.5 10/08 Normal [facility] CHEMISTRY Magnesium Lvl 1.6 mg/dL 1.8 - 2.4 10/08 LOW [facility] CHEMISTRY Ca Ion 1.17 1.16 - 02 Normal [facility] mMol/L 1. [facility] CHEMISTRY Ca Norm 1.18 1.16 - 10/08 Normal [facility] mMol/L 1. [facility] CHEMISTRY Ca Ion mgdL 4.68 mg/dL 4.65 - 02 Normal [facility] 5.20 [facility] CHEMISTRY Ca Norm mgdL 4.72 mg/dL 4.65 - 02 Normal [facility] 5.20 [facility] CHEMISTRY AGAP 17.6 meq/L 10.0 - 10/08 Normal [facility] 20.0 [facility] CHEMISTRY eGFR 109 10/08 NA 4Result Comment: The eGFR is calculated using the CKD-EPI formula. In most young, healthy individuals the eGFR will be > 90 mL/min/1.73m2. The eGFR declines with age. An eGFR of 60-89 may be normal in [facility] mL/min/1.7 some populations, particularly the elderly, for whom the CKD-EPI formula has not been extensively validated. Use of the eGFR is not recommended in the following populations: [place] [address] Center Individuals with unstable creatinine concentrations, including [...] 24 meq/L 24 - 32 10/08 Normal [facility]2012 [facility] CHEMISTRY Calcium Lvl 8.5 mg/dL 8.5 - 10.5 10/08 Normal [facility]2012 [facility] CHEMISTRY Potassium Lvl 3.6 meq/L 3.5 - 5.1 10/08 Normal [facility]2012 [facility] CHEMISTRY Chloride Lvl 96 meq/L 95 - 109 10/[address] CHEMISTRY Creatinine 0.6 mg/dL 0.5 - 1.4 10/08 Normal [facility] /2012 [facility] CHEMISTRY Sodium Lvl 134 meq/L 135 - 145 10/[address] CHEMISTRY Glucose Lvl 129 mg/dL 70 - 99 10/08 [place] 7Interpretive Data: Adult reference range values reflect the clinical guidelines of the [place] [employer]. [facility] CHEMISTRY BUN 4 mg/dL 7 - 22 10/[address] HEMATOLOGY Monocytes # 1.1 K/CMM 0.0 - 0.8 10/[address] HEMATOLOGY Eosinophils # 0.3 K/CMM 0.0 - 0.5 10/[address] HEMATOLOGY Basophils # 0.1 K/CMM 0.0 - 0.2 10/[address] HEMATOLOGY Microcyte 1+ None Seen 10/08 ABN [facility] *ABN* Center (10/08/2012 03:57:00) HEMATOLOGY Segs 55.7 % 45.0 - 02 Normal [facility] 75.0 [facility] HEMATOLOGY Lymphocytes 31.3 % 20.0 - 02/ Normal [facility] 40.0 [facility] HEMATOLOGY Monocytes 10.0 % 2.0 - 12.0 10/08 Normal [facility]2012 [facility] HEMATOLOGY Eosinophils 2.5 % 0.0 - 4.0 02/ Normal [facility] HEMATOLOGY Segs-Bands # 6.1 K/CMM 1.5 - 8.1 10/08 Normal [facility] HEMATOLOGY Basophils 0.5 % 0.0 - 1.0 / Normal [facility] HEMATOLOGY Lymphocytes # 3.4 K/CMM 1.0 - 5.5 10/08 Normal [facility] HEMATOLOGY RDW 16.9 % 11.5 - 02 HI [facility] 14.5 /2012 [facility] HEMATOLOGY Platelet 218 K/CMM 133 - 450 02 Normal [facility] HEMATOLOGY WBC 10.9 K/CMM 3.7 - 10.4 10/08 HI [facility] HEMATOLOGY RBC 4.35 M/CMM 4.20 - 10/08 [facility] 5.40 /2012 [facility] HEMATOLOGY MPV 9.7 fL 7.4 - 10.4 10/08 Normal [facility] HEMATOLOGY Hgb 10.4 g/dL 12.0 - 10/08 LOW [facility] 16.0 /2012 [facility] HEMATOLOGY Hct 32.7 % 36.0 - 02 [facility] 48.0 /2012 [facility] HEMATOLOGY MCHC 31.8 g/dL 32.0 - 02 [facility] 36.0 /2012 [facility] HEMATOLOGY MCV 75.2 fL 81.0 - 10/08 [facility] 99.0 /2012 [facility] HEMATOLOGY MCH 23.9 pg 27.0 - 10/08 [facility] 31.0 [facility] BEDSIDE Comment1 Notify 10/08 NA [facility] GLUCOSE RN/MD /2012 Medical TESTING Center BEDSIDE Gluc POC 247 mg/dL 70 - 99 10/08 HI 3Interpretive [facility] GLUCOSE Lifscn Data: Medical TESTING Center Upper Reportable Limit: 200 mg/dL. CHEMISTRY Magnesium Lvl 2.1 mg/dL 1.8 - 2.4 10/07 Normal [facility] CHEMISTRY Ca Norm 1.16 1.16 - 02 [facility] mMol/L 1.30 [facility] CHEMISTRY Ca Ion mgdL 4.72 mg/dL 4.65 - 10/07 [facility] 5. [facility] CHEMISTRY Ca Norm mgdL 4.64 mg/dL 4.65 - 10/07 LOW [facility] 5.20 [facility] CHEMISTRY Ca Ion 1.18 1.16 - 10/07 Normal [facility] mMol/L 1.30 [facility] CHEMISTRY Phosphorus 2.6 mg/dL 2.5 - 4.5 10/07 Normal [facility] CHEMISTRY Calcium Lvl 8.1 mg/dL 8.5 - 10.5 10/07 LOW [facility] CHEMISTRY AGAP 19.4 meq/L 10.0 - 10/07 Normal [facility] 20.0 [facility] CHEMISTRY eGFR 116 10/07 NA 5Result Comment: The eGFR is calculated using the CKD-EPI formula. In most young, healthy individuals the eGFR will be > 90 mL/min/1.73m2. The eGFR declines with age. An eGFR of 60-89 may be normal in [facility] mL/min/1.7 some populations, particularly the elderly, for whom the CKD-EPI formula has not been extensively validated. Use of the eGFR is not recommended in the following populations: [place] [address] Center Individuals with unstable creatinine concentrations, including [...] 6 mg/dL 7 - 22 10/07 LOW [facility] CHEMISTRY Glucose Lvl 99 mg/dL 70 - 99 10/07 Normal 8Interpretive Data: Adult reference range values reflect the clinical guidelines of the [place] [employer]. [facility] CHEMISTRY Creatinine 0.5 mg/dL 0.5 - 1.4 10/07 Normal [facility] Lvl [facility] CHEMISTRY Potassium Lvl 3.4 meq/L 3.5 - 5.1 10/07 LOW [facility] CHEMISTRY Sodium Lvl 135 meq/L 135 - 145 10/07 Normal [facility] CHEMISTRY CO2 24 meq/L 24 - 32 10/07 Normal [facility] CHEMISTRY Chloride Lvl 95 meq/L 95 - 109 10/07 Normal [facility] HEMATOLOGY MCHC 31.8 g/dL 32.0 - 10/07 LOW [facility] 36.0 [facility] HEMATOLOGY MCH 24.1 pg 27.0 - 02 [facility] 31.0 /2012 [facility] HEMATOLOGY MCV 75.7 fL 81.0 - 02 [facility] 99.0 /2012 [facility] HEMATOLOGY Hct 31.0 % 36.0 - 02 [facility] 48.0 /2012 [facility] HEMATOLOGY Hgb 9.9 g/dL 12.0 - 02/ [facility] 16.0 /2012 [facility] HEMATOLOGY MPV 9.1 fL 7.4 - 10.4 02 Normal [facility] HEMATOLOGY Platelet 222 K/CMM 133 - 450 02 Normal [facility] HEMATOLOGY RDW 16.8 % 11.5 - 02 [facility] 14.5 /2012 [facility] HEMATOLOGY RBC 4.10 M/CMM 4.20 - 02 [facility] 5.40 /2012 [facility] HEMATOLOGY WBC 13.8 K/CMM 3.7 - 10.4 02 [facility] HEMATOLOGY Segs-Bands # 9.6 K/CMM 1.5 - 8.1 10/07 [facility] HEMATOLOGY Basophils 0.3 % 0.0 - 1.0 02 Normal [facility] HEMATOLOGY Eosinophils 1.0 % 0.0 - 4.0 10/07 [facility] HEMATOLOGY Microcyte 1+ None Seen 10/07 [facility] *ABN* Center (10/07/2012 03:25:00) HEMATOLOGY Lymphocytes # 2.9 K/CMM 1.0 - 5.5 02 [facility] HEMATOLOGY Eosinophils # 0.1 K/CMM 0.0 - 0.5 02 [facility] HEMATOLOGY Monocytes # 1.2 K/CMM 0.0 - 0.8 02 [facility] HEMATOLOGY Monocytes 8.8 % 2.0 - 12.0 10/07 [facility] HEMATOLOGY Lymphocytes 20.8 % 20.0 - 02 [facility] 40.0 [facility] HEMATOLOGY Segs 69.1 % 45.0 - 02/ Normal [facility] 75.0 [facility] URINALYSIS UA Glucose 500mg/dL 10/06 NA [facility] URINALYSIS UA <=1.0 0.1 - 1.0 10/06 NA [facility] Urobilinogen mg/dL /2012 Medical
*NA*< Center br/>(10/06 11:42:00) <sup> </sup> URINALYSIS Micro? Performed 10/06 NA [facility] *NA* Center (10/06/2012 11:42:00) URINALYSIS UA [place] Yeast Moderate /HPF None Seen 10/06 [facility] *ABN* Center (10/06/2012 11:42:00) URINALYSIS UA RBC 3 /HPF 0 - 2 10/06 HI [facility] URINALYSIS UA Bacteria Many /HPF None Seen 10/06 [facility] *ABN* [place] (10/06/2012 11:42:00) URINALYSIS UA WBC 3 /HPF 0 - 5 10/06 Normal [facility] URINALYSIS UA Leuk Est Negative Negative 10/06 Normal 2012 [facility] (10/06/2012 11:42:00) Center URINALYSIS UA Nitrite Negative Negative 10/06 Normal [facility] (10/06/2012 11:42:00) Center URINALYSIS UA Sq Epi Many /LPF Few 10/06 [facility] *ABN* [place] (10/06/2012 11:42:00) URINALYSIS UA Bili Negative Negative 10/06 [facility] *NA* Center (10/06/2012 11:42:00) URINALYSIS UA Blood Negative Negative 10/06 Normal [facility] (10/06/2012 11:42:00) Center URINALYSIS UA pH 5.5 5.0 - 8.0 10/06 Normal [facility] URINALYSIS UA Protein 20 mg/dL Negative 10/06 [facility] *ABN* Center (10/06/2012 11:42:00) URINALYSIS UA Ketones >=150 mg/dL Negative 10/06 [facility] *ABN* Center (10/06/2012 11:42:00) URINALYSIS UA Color Yellow Yellow 10/06 NA Medical *NA* Center (10/06/2012 11:42:00) URINALYSIS UA Turbidity Slight Clear 10/06 ABN Medical *ABN* Center (10/06/2012 11:42:00) URINALYSIS UA Spec Grav 1.011 <=1.030 10/06 Normal [facility] URINALYSIS UA Mucus Few /LPF None Seen 10/06 [facility] [place] (10/06/2012 11:42:00) Microbiolog Culture: 10/06 [facility] y [facility] CHEMISTRY Phosphorus 2.5 mg/dL 2.5 - 4.5 10/06 Normal [facility] CHEMISTRY Magnesium Lvl 1.5 mg/dL 1.8 - 2.4 10/06 LOW [facility] CHEMISTRY eGFR 76 10/06 NA 6Result Comment: The eGFR is calculated using the CKD-EPI formula. In most young, healthy individuals the eGFR will be > 90 mL/min/1.73m2. The eGFR declines with age. An eGFR of 60-89 may be normal in [facility] mL/min/1. some populations, particularly the elderly, for whom the CKD-EPI formula has not been extensively validated. Use of the eGFR is not recommended in the following populations: [address] Individuals with unstable creatinine concentrations, including [...] 3.9 meq/L 3.5 - 5.1 10/06 Normal [facility] CHEMISTRY Chloride Lvl 97 meq/L 95 - 109 10/06 Normal [facility] CHEMISTRY Calcium Lvl 8.3 mg/dL 8.5 - 10.5 10/06 LOW [facility] CHEMISTRY CO2 22 meq/L 24 - 32 10/06 LOW [facility] CHEMISTRY Glucose Lvl 234 mg/dL 70 - 99 10/06 HI 9Interpretive Data: Adult reference range values reflect the clinical guidelines of the [place] [employer]. [facility] CHEMISTRY Creatinine 0.9 mg/dL 0.5 - 1.4 10/06 Normal [facility] CHEMISTRY BUN 9 mg/dL 7 - 22 10/06 Normal [facility] CHEMISTRY Sodium Lvl 134 meq/L 135 - 145 10/06 LOW [facility] CHEMISTRY AGAP 18.9 meq/L 10.0 - 10/06 Normal [place] 20.0 [facility] HEMATOLOGY Segs-Bands # 13.3 K/CMM 1.5 - 8.1 10/06 [facility] HEMATOLOGY Basophils 0.2 % 0.0 - 1.0 10/06 Normal [facility] HEMATOLOGY Eosinophils 0.1 % 0.0 - 4.0 10/06 Normal [facility] HEMATOLOGY Monocytes 6.7 % 2.0 - 12.0 10/06 Normal [facility] HEMATOLOGY Segs 81.7 % 45.0 - 10/06 [facility] [place] 75.0 /2012 [facility] HEMATOLOGY Lymphocytes 11.3 % 20.0 - 10/06 [facility] [place] 40.0 /2012 [facility] HEMATOLOGY Microcyte 1+ None Seen 10/06 [facility] Medical *ABN* Center (10/06/2012 04:25:00) HEMATOLOGY Monocytes # 1.1 K/CMM 0.0 - 0.8 10/06 [facility] HEMATOLOGY Lymphocytes # 1.8 K/CMM 1.0 - 5.5 10/06 Normal [facility] HEMATOLOGY RBC 4.28 M/CMM 4.20 - 10/06 [facility] [place] 5.40 /2012 [facility] HEMATOLOGY WBC 16.3 K/CMM 3.7 - 10.4 10/06 [facility] HEMATOLOGY Hgb 10.3 g/dL 12.0 - 10/06 [facility] [place] 16.0 [facility] HEMATOLOGY Hct 32.6 % 36.0 - 10/06 [facility] [place] 48.0 /2012 [facility] HEMATOLOGY MCH 24.0 pg 27.0 - 10/06 LOW [place] 31.0 [facility] HEMATOLOGY MCV 76.1 fL 81.0 - 10/06 [facility] [place] 99.0 /2012 [facility] HEMATOLOGY MCHC 31.5 g/dL 32.0 - 10/06 [facility] [place] 36.0 [facility] HEMATOLOGY RDW 17.2 % 11.5 - 10/06 [facility] [place] 14.5 [facility] HEMATOLOGY Platelet 248 K/CMM 133 - 450 10/06 Normal [facility] HEMATOLOGY MPV 9.5 fL 7.4 - 10.4 10/06 Normal [facility] CHEMISTRY Ca Norm 1.07 1.16 - 10/05 LOW [facility] mMol/L 1. [facility] CHEMISTRY Ca Ion mgdL 4.36 mg/dL 4.65 - 10/05 LOW [facility] 5. [facility] CHEMISTRY Ca Norm mgdL 4.28 mg/dL 4.65 - 10/05 LOW [facility] 5. [facility] CHEMISTRY Ca Ion 1.09 1.16 - 10/05 LOW [facility] mMol/L 1. [facility] HEMATOLOGY Basophils # 0.1 K/CMM 0.0 - 0.2 10/05 Normal [facility] HEMATOLOGY Eosinophils # 0.1 K/CMM 0.0 - 0.5 10/05 Normal [facility] CHEMISTRY U Preg Negative Negative 10/03 Normal [facility] (10/03/2012 06:31:00) [place] BLOOD BANK ABO/Rh A POS 10/03 Unknown [facility] BLOOD BANK Antibody Scrn Negative 10/03 Normal [facility] Medical (10/03/2012 06:00:00) Center CHEMISTRY Total Protein 7.8 g/dL 6.4 - 8.4 09/23 Normal [facility] CHEMISTRY AST 31 unit/L 0 - 37 09/23 Normal [facility] CHEMISTRY Bili Total 0.3 mg/dL 0.2 - 1.3 09/23 Normal [facility] CHEMISTRY ALT 50 unit/L 0 - 65 09/23 Normal [facility] CHEMISTRY Albumin Lvl 3.6 g/dL 3.5 - 5.0 09/23 Normal [facility] CHEMISTRY Alk Phos 150 unit/L 39 - 136 09/23 [facility] CHEMISTRY B/C Ratio 21 6 - 25 09/23 Normal [facility] CHEMISTRY Globulin 4.2 g/dL 2.0 - 4.0 09/23 [facility] CHEMISTRY A/G Ratio 0.9 0.7 - 1.6 09/23 Normal [facility] HEMATOLOGY Hypochrom Slight None Seen 09/23 Normal Medical (09/23/2012 12:35:00) Center HEMATOLOGY Elliptocyte Slight None Seen 09/23 ABN Medical *ABN* Center (09/23/2012 12:35:00) HEMATOLOGY Basophils # 0.1 K/CMM 0.0 - 0.2 09/23 Normal [facility] HEMATOLOGY Plt Morph Normal 09/23 Normal [facility] (09/23/2012 12:35:00) Center URINALYSIS UA <=1.0 0.1 - 1.0 09/23 NA [facility] Urobilinogen mg/dL Medical
*NA*< Center br/>(09/23 12:35:00) <sup> </sup> URINALYSIS UA Nitrite Negative Negative 09/23 Normal [facility] (09/23/2012 12:35:00) [place] URINALYSIS UA Blood Negative Negative 09/23 Normal [facility] (09/23/2012 12:35:00) Center URINALYSIS UA Leuk Est Negative Negative 09/23 Normal [facility] (09/23/2012 12:35:00) Center URINALYSIS Micro? Not Indicated 09/23 [facility] *NA* [place] (09/23/2012 12:35:00) URINALYSIS UA Ketones Negative mg/dL Negative 09/23 [facility] *NA* [place] (09/23/2012 12:35:00) URINALYSIS UA Bili Negative Negative 09/23 [facility] *NA* [place] (09/23/2012 12:35:00) URINALYSIS UA Protein Negative mg/dL Negative 09/23 Normal [facility] (09/23/2012 12:35:00) Center URINALYSIS UA pH 5.0 5.0 - 8.0 09/23 Normal [facility] Center URINALYSIS UA Glucose Negative mg/dL Negative 09/23 [facility] *NA* [place] (09/23/2012 12:35:00) URINALYSIS UA Color Light Yellow Yellow 09/23 NA Medical *NA* [place] (09/23/2012 12:35:00) URINALYSIS UA Spec Grav 1.004 <=1.030 09/23 Normal [facility] URINALYSIS UA Turbidity Clear Clear 01/18 Normal Medical (09/23/2012 12:35:00) Center BEDSIDE Gluc POC 153 mg/dL 70 - 99 06/28 [place] 1Interpretive [facility] GLUCOSE Lifsc Data: Medical TESTING Center Upper Reportable Limit: 200 mg/dL. CHEMISTRY U Preg Negative Negative 06/28 Normal Medical (06/28/2012 07:27:00) Center Vital Signs Vital Sign Value Date Comments Source Systolic (mm Hg) 124 08/13/2013 [facility] Respitory Rate 18 08/13/2013 [facility] Temperature Oral (F) 98.8 F 08/13/2013 [facility] Heart Rate 102 08/13/2013 [facility] Diastolic (mm Hg) 46 08/13/2013 [facility] Systolic (mm Hg) 107 08/13/2013 [facility] Respitory Rate 18 08/13/2013 [facility] Diastolic (mm Hg) 63 08/13/2013 [facility] Heart Rate 103 08/13/2013 [facility] Heart Rate 105 08/13/2013 [facility] Respitory Rate 18 08/13/2013 [facility] Systolic (mm Hg) 117 08/13/2013 [facility] Diastolic (mm Hg) 70 08/13/2013 [facility] Weight 81.818 08/13/2013 [facility] Height 162.56 cm 08/13/2013 [facility] Temperature Oral (F) 98.4 F 08/13/2013 [facility] Diastolic (mm Hg) 61 07/15/2013 [facility] Temperature Oral (F) 97.7 F 07/15/2013 [facility] Systolic (mm Hg) 117 07/15/2013 [facility] Respitory Rate 18 07/15/2013 [facility] Heart Rate 90 07/15/2013 [facility] Respitory Rate 18 07/14/2013 [facility] Heart Rate 104 07/14/2013 [facility] Diastolic (mm Hg) 46 07/14/2013 [facility] Systolic (mm Hg) 91 07/14/2013 [facility] Diastolic (mm Hg) 61 07/14/2013 [facility] Systolic (mm Hg) 95 07/14/2013 [facility] Respitory Rate 18 07/14/2013 [facility] Heart Rate 120 07/14/2013 [facility] Temperature Oral (F) 97.5 F 07/14/2013 [facility] Temperature Oral (F) 97.6 F 07/14/2013 [facility] Height 162.56 cm 07/12/2013 [facility] Weight 86.364 07/12/2013 [facility] Temperature Oral (F) 97.1 F 04/03/2013 [facility] Respitory Rate 18 04/03/2013 [facility] Heart Rate 79 04/03/2013 [facility] Diastolic (mm Hg) 66 04/03/2013 [facility] Systolic (mm Hg) 94 04/03/2013 [facility] Diastolic (mm Hg) 28 04/03/2013 [facility] Systolic (mm Hg) 116 04/03/2013 [facility] Respitory Rate 20 04/03/2013 [facility] Heart Rate 100 04/03/2013 [facility] Temperature Oral (F) 97.0 F 04/03/2013 [facility] Height 162.56 cm 04/03/2013 [facility] Weight 90 04/03/2013 [facility] Height 162.56 cm 04/02/2013 [facility] Weight 90 04/02/2013 [facility] Systolic (mm Hg) 132 03/09/2013 [facility] Diastolic (mm Hg) 72 03/09/2013 [facility] Heart Rate 114 03/09/2013 [facility] Temperature Oral (F) 97.7 F 03/09/2013 [facility] Respitory Rate 20 03/09/2013 [facility] Temperature Oral (F) 97.7 F 03/09/2013 [facility] Heart Rate 108 03/09/2013 [facility] Systolic (mm Hg) 143 03/09/2013 [facility] Respitory Rate 18 03/09/2013 [facility] Diastolic (mm Hg) 81 03/09/2013 [facility] Heart Rate 115 03/09/2013 [facility] Diastolic (mm Hg) 70 03/09/2013 [facility] Systolic (mm Hg) 153 03/09/2013 [facility] Respitory Rate 18 03/09/2013 [facility] Temperature Oral (F) 97.5 F 03/09/2013 [facility] Weight 90 03/07/2013 [facility] Height 162.56 cm 03/07/2013 [facility] Height 162.56 cm 03/06/2013 [facility] Weight 90 03/06/2013 [facility] Systolic (mm Hg) 127 12/07/2012 [facility] Diastolic (mm Hg) 49 12/07/2012 [facility] Heart Rate 90 12/07/2012 [facility] Temperature Oral (F) 98.3 F 12/07/2012 [facility] Respitory Rate 18 12/07/2012 [facility] Systolic (mm Hg) 104 12/07/2012 [facility] Temperature Oral (F) 98.6 F 12/07/2012 [facility] Respitory Rate 18 12/07/2012 [facility] Heart Rate 78 12/07/2012 [facility] Diastolic (mm Hg) 57 12/07/2012 [facility] Heart Rate 89 12/07/2012 [facility] Temperature Oral (F) 97.6 F 12/07/2012 [facility] Respitory Rate 18 12/07/2012 [facility] Systolic (mm Hg) 105 12/07/2012 [facility] Diastolic (mm Hg) 51 12/07/2012 [facility] Weight 100 11/29/2012 [facility] Height 162.56 cm 11/29/2012 [facility] Weight 100.568 11/29/2012 [facility] Height 162.56 cm 11/29/2012 [facility] Weight 101.364 11/28/2012 [facility] Height 162.56 cm 11/28/2012 [facility] Diastolic (mm Hg) 55 11/17/2012 [facility] Systolic (mm Hg) 117 11/17/2012 [facility] Diastolic (mm Hg) 70 11/17/2012 [facility] Systolic (mm Hg) 118 11/17/2012 [facility] Diastolic (mm Hg) 61 11/17/2012 [facility] Systolic (mm Hg) 154 11/17/2012 [facility] Temperature Oral (F) 97.8 F 11/17/2012 [facility] Temperature Oral (F) 97.9 F 11/17/2012 [facility] Temperature Oral (F) 98.6 F 11/17/2012 [facility] Height 162.56 cm 11/17/2012 [facility] Weight 103.21 11/17/2012 [facility] Respitory Rate 18 11/17/2012 [facility] Height 162.56 cm 11/16/2012 [facility] Weight 100 11/16/2012 [facility] Diastolic (mm Hg) 58 11/14/2012 [facility] Systolic (mm Hg) 121 11/14/2012 [facility] Respitory Rate 20 11/14/2012 [facility] Heart Rate 84 11/14/2012 [facility] Temperature Oral (F) 98.0 F 11/14/2012 [facility] Respitory Rate 20 11/14/2012 [facility] Systolic (mm Hg) 103 11/14/2012 [facility] Diastolic (mm Hg) 54 11/14/2012 [facility] Temperature Oral (F) 98.0 F 11/14/2012 [facility] Heart Rate 83 11/14/2012 [facility] Diastolic (mm Hg) 68 11/14/2012 [facility] Respitory Rate 20 11/14/2012 [facility] Heart Rate 79 11/14/2012 [facility] Systolic (mm Hg) 136 11/14/2012 [facility] Temperature Oral (F) 98.4 F 11/14/2012 [facility] Height 162.56 cm 11/06/2012 [facility] Weight 100 11/06/2012 [facility] Height 162.56 cm 11/06/2012 [facility] Weight 100 11/06/2012 [facility] Height 162.56 cm 11/06/2012 [facility] Weight 104.545 11/06/2012 [facility] Systolic (mm Hg) 131 11/01/2012 [facility] Diastolic (mm Hg) 62 11/01/2012 [facility] Systolic (mm Hg) 125 11/01/2012 [facility] Diastolic (mm Hg) 62 11/01/2012 [facility] Systolic (mm Hg) 155 10/31/2012 [facility] Diastolic (mm Hg) 54 10/31/2012 [facility] Temperature Oral (F) 99.7 F 10/31/2012 [facility] Temperature Oral (F) 96.7 F 10/31/2012 [facility] Temperature Oral (F) 98.1 F 10/31/2012 [facility] Respitory Rate 19 10/31/2012 [facility] Respitory Rate 19 10/31/2012 [facility] Respitory Rate 19 10/31/2012 [facility] Weight 78.2 10/24/2012 [facility] Heart Rate 126 10/23/2012 [facility] Heart Rate 130 10/23/2012 [facility] Weight 113.636 10/23/2012 [facility] Height 162.56 cm 10/23/2012 [facility] Heart Rate 119 10/23/2012 [facility] Height 162.56 cm 10/23/2012 [facility] Systolic (mm Hg) 123 10/08/2012 [facility] Respitory Rate 19 10/08/2012 [facility] Diastolic (mm Hg) 51 10/08/2012 [facility] Heart Rate 81 10/08/2012 [facility] Temperature Oral (F) 98.8 F 10/08/2012 [facility] Diastolic (mm Hg) 55 10/08/2012 [facility] Respitory Rate 20 10/08/2012 [facility] Systolic (mm Hg) 136 10/08/2012 [facility] Heart Rate 82 10/08/2012 [facility] Temperature Oral (F) 98.9 F 10/08/2012 [facility] Diastolic (mm Hg) 47 10/08/2012 [facility] Systolic (mm Hg) 107 10/08/2012 [facility] Temperature Oral (F) 98.1 F 10/08/2012 [facility] Respitory Rate 18 10/08/2012 [facility] Heart Rate 75 10/08/2012 [facility] Weight 118.200 10/03/2012 [facility] Height 162.56 cm 10/03/2012 [facility] Weight 118.182 09/23/2012 [facility] Height 162.56 cm 09/23/2012 [facility] Diastolic (mm Hg) 57 06/28/2012 [facility] Heart Rate 104 06/28/2012 [facility] Respitory Rate 18 06/28/2012 [facility] Systolic (mm Hg) 147 06/28/2012 [facility] Systolic (mm Hg) 153 06/28/2012 [facility] Diastolic (mm Hg) 61 06/28/2012 [facility] Respitory Rate 16 06/28/2012 [facility] Systolic (mm Hg) 136 06/28/2012 [facility] Diastolic (mm Hg) 52 06/28/2012 [facility] Respitory Rate 18 06/28/2012 [facility] Temperature Oral (F) 98.5 F 06/28/2012 [facility] Heart Rate 104 06/28/2012 [facility] Weight 118.182 06/14/2012 [facility] Height 162.56 cm 06/14/2012 [facility] Encounters Location Location Encounter Encounter Reason Attending ADM DC Status Source Details Type Number For Visit Provider Date Date [facility] DS [id number] DSU/ WOLFGANG 06/28 Active [facility] Medical REFLUX SUSHILA /2011 [facility] Inpatient [id number] WOLFGANG 10/03 10/08 Active [facility] SUSHILA /2012 [facility] Inpatient [id number] N/V DARELL 10/23 11/01 Active [facility] DEHYDRATI SDRINGOLA- /2012 [facility] [id number] LAVONE 11/05 11/14 Active [facility] ROSE /2012 [facility] OU [id number] CHIP 11/16 11/17 Active [facility] MARKUS /2012 [facility] Inpatient [id number] JUAN J 11/29 12/07 Active [facility] BRANDO /2012 [facility] OU [id number] SANJUANA 03/07 03/09 Active [facility] OSUAGWU /2012 [facility] OU [id number] JEANNIE 04/02 04/03 Active [facility] ADOLFO /2012 [facility] OU [id number] GASTROPAR JEANNIE 07/12 07/14 Active [facility] ESIS ADOLFO /2012 [facility] JACKIE [id number] WOLFGANG 07/26 07/27 Active [facility] SUSHILA /2012 [facility] Emergency [id number] KATELYN 08/13 08/13 Active [facility] BUBLEWICZ /2012 [facility] Outpatient [id number] SERGO WHITFIELD Cancel [facility] Procedures Procedure Code Date Perfomer Comments Source section [id number] [facility] Cholecystectomy [id number] [facility] <sup>1</sup> [facility] Hand repair [id number], x'2 [facility] <sup>2</sup> [facility] Tonsillectomy [id number] [facility] <sup>3</sup> [facility] Bypass of stomach [id number] [facility] Rotator cuff repair [id number] [facility] Heart procedure [id number] 1cardiac [facility] <sup>1</sup> stent for [facility]
--- OUTSIDE RECORDS SUMMARY | 2018-05-23 00:33 | XMS REPORT | CCD ---
:1965 Author Organization [facility] Care Team Providers Name Role Phone Sukhwinder Renteria Referring Provider Allergies, Adverse Reactions, Alerts Substance Reaction Status NKDA Active Problem List Condition Effective Dates Status Acid reflux Resolved Anemia Resolved Anxiety Resolved Arthritis Resolved Depression Resolved Diabetes mellitus type 1 Resolved Edema of lower extremity Resolved Fibromyalgia Resolved Hyperlipidemia Resolved Hypertension Resolved Medications Medication Instructions Start Date End Date Status [place] 325 mg-10 mg / 15 mL, Route: [...] Duration: 30 day, Stop date: 11/02/12 10:59:00 [place] 325 mg-10 mg / 30 mL, Route: PO, 10/04/2012 10/05/2012 Discontinued 15 mL oral solution Drug Form: SOLN, Dosing Weight 118.2, kg, Q4H, PRN Pain Score 6-10, Start date: 10/04/12 17:20:00, Duration: 30 day, Stop date: 11/03/12 17:19:00 [place] 325 mg-10 mg / 15 mL, Route: [...] 14:28:00, PRN Blood Glucose Results Blistex Lip [place] Route: TOP, Dosing 10/06/2012 10/06/2012 Deleted Weight [...] /LPF] Few /LPF *NA* (10/06/2012 11:42:00) [facility] [place] Yeast [None Seen /HPF] Moderate /HPF *ABN* [...] values reflect the clinical guidelines of the [place] [employer].8Interpretive Data: Adult reference range values reflect the clinical guidelines of the [place] [employer].9Interpretive Data: Adult reference range values reflect the clinical guidelines of the [place] [employer].HEMATOLOGY Most recent to oldest 1 [...] Catch FREE TEXT SOURCE: FINAL REPORTS Final Gqazia39,000 - 50,000 CFU/mL Enterococcus SpeciesPRELIMINARY REPORTS Preliminary Jiapww51,000 - 50,000 CFU/ mL Enterococcus Species ; Sensitivity PendingSUSCEPTIBILITY REPORT ENTERO Antibiotic INTERP. VDIL Ampicillin S Levofloxacin S Nitrofurantoin S Tetracycline R Vancomycin S Procedures Procedures Date Related Diagnosis section Cholecystectomy 1 Hand repair 2 Tonsillectomy 3 , [id number]
--- OUTSIDE RECORDS SUMMARY | 2018-05-23 00:33 | XMS REPORT | CCD ---
:1965 Author Organization [facility] Care Team Providers Name Role Phone [...]
--- OUTSIDE RECORDS SUMMARY | 2018-05-23 00:34 | XMS REPORT | CCD ---
:1965 Author Organization [facility] Care Team Providers Name Role Phone Milton Arabella Ruelas Consulting Provider Ezio Sifuentes Consulting Provider Allergies, Adverse Reactions, Alerts Substance Reaction Status NKDA Active Problem List Condition Effective Dates Status Acid reflux Resolved Anemia Resolved Anxiety Resolved Arthritis Resolved Depression Resolved Diabetes mellitus type 1 Resolved Edema of lower extremity Resolved Fibromyalgia Resolved Hyperlipidemia Resolved Hypertension Resolved MRSA1, 2 10/23/2012 Active 1nares 10/23/201264373Wmskzbn added by Discern Expert. Medications Medication Instructions [...] Duration: 30 day, Stop date: 12/06/12 1:48:00 Sprag[place] 5/325 oral tablet 1 tab, PO, Q6H, [...] Duration: 30 day, Stop date: 12/08/12 10:44:00 [place]ag[place] 5/325 oral tablet 1 tab, Route: PO, [...] INJ, Q2H, Dosing Weight 100, kg, Total fwwp=0854 mg, Start date: 11/14/12 8:00:00, Duration: 2 [...] 11/08/2012 11/08/2012 Canceled PO, Drug form: TAB, [id number], Dosing Weight 100, kg, Start date: 11/08/12 [...] [Negative] Negative 1 (11/12/2012 21:54:26) 1Interpretive Data: FightMeigene Clostridium difficile assay utilizes loop-mediated isothermalDNA amplification (LAMP) technology to detect a 204 bp region of the tcdA gene within the PaLoc genesegment present in all known toxigenic C. difficile strains. The assay utilizes FDA cleared IVD reagents. Performance characteristics have been verified by the Molecular Diagnostic Laboratory within the [facility]. The Molecular Diagnostic Laboratory is authorized under [...] called leslie Conner Rose at 11/12/2012 02:56:37 LOCKSMITH HELPER by_mgm. Read back OK.12Interpretive Data: Adult reference [...] 10.0 240 Poor Control, take action to fgotk27Xatlit Comment : Critical Result(s) called leslie Rose [...] Catch FREE TEXT SOURCE: FINAL REPORTS Final Rbtxgh82,000 - 100,000 CFU/mL Enterococcus SpeciesPRELIMINARY REPORTS Preliminary Qnrwyu20,000 - 100,000 CFU/ mL Enterococcus Species Identification And Sensitivity PendingSUSCEPTIBILITY REPORT ENTERO Antibiotic INTERP. VDIL Ampicillin S Levofloxacin S Nitrofurantoin S Tetracycline R Vancomycin S
--- OUTSIDE RECORDS SUMMARY | 2018-05-23 00:34 | XMS REPORT | CCD ---
[...] Hypertension Resolved MRSA1, 2 10/23/2012 Active 1nares 10/23/201255422Mfzyjys added by Discern Expert. Medications Medication Instructions [...] mg, 1 supp, 10/23/2012 11/01/2012 Discontinued Route: AK, Drug form: SUPP, Q6H, Dosing Weight 113.636, kg, PRN Fever, Start date: 10/23/12 0:37:00, Duration: 30 day, Stop date: 11/22/12 0:36:00 Visipaque 320mg/ml 126 mL, Route: IVP, Drug Form: SOLN, Dosing Weight 113.636 , kg, ONCALL, STAT, Start date: 10/23/12 16:52:00, Duration: 1 doses or times, Dose=2.2ml/kg, Max gqge=348wb -- "To be infused by Radiology Staff ONLY" 10/2310/23/2012 Completed Dose=2.2ml/kg, Max eeff=031vl -- "To be infused by Radiology Staff [...] mg, 1 supp, 10/24/2012 10/24/2012 Deleted Route: AK, Drug form: SUPP, ONCE, Dosing Weight 78.2, [...] Duration: 1 doses or times, Dose=2.2ml/kg, Max hotn=948bc -- "To be infused by Radiology Staff ONLY" 10/2310/23/2012 Completed Dose=2.2ml/kg, Max clqd=551de -- "To be infused by Radiology Staff [...] Molecular Diagnostic Laboratory within the [facility]. The Molecular Diagnostic Laboratory is authorized [...] values reflect the clinical guidelines of the [place] Diabetes [employer].11Interpretive Data: Adult reference range values reflect the clinical guidelines of the [place] Diabetes Association.12Interpretive Data: Adult reference range values reflect the clinical guidelines of the [place] Diabetes [employer].13Interpretive Data: Reference range is based on recommendations in the Endocrine Society Clinical Practice Guideline (J Clin Endocrinol Metab 2011;96:3628-0812)14Result Comment: Specimen Moderately Hemolyzed.15Result Comment: Critical Result(s) called to daisy otoole at 10/25/2012 01:18:09 HAND PACKER/PACKAGER by tac. Read back OK.16Result Comment: Critical Result(s) called to Maribel Bustos at 10/24/2012 13:23:46 HAND PACKER/PACKAGER by lwb . Readback OK.17Result Comment: Critical Result(s) called to Lyn King at 10/24/2012 09:52:38 HAND PACKER/PACKAGER by lwb . Read back OK.18Result Comment: Critical Result(s) called to Jelani Rasmussen at 10/25/2012 00: 47:48 HAND PACKER/PACKAGER by RM. Read back OK.19Result Comment: Critical Result(s) called to mariana bustos at _ 10/24/2012 13:37:22 CSTby_lss. Readback OK.20Result Comment : Critical Result(s) called to romero beltre at _10/24/2012 09:50:18 HAND PACKER/PACKAGER by_lss. Read back OK.21Interpretive Data: HbA1C% eAG(mg/dL) [...] Data: Heparin Therapeutic Range: 57 - 92 Vwxrapc03Vjydqitmztld Data: Heparin Therapeutic Range: 57 - 92 Ksjgzgc71Sxkkejlkbvcj Data: Heparin Therapeutic Range: 57 - 92 Seconds Microbiology Reports PROCEDURE:Culture: Urine STATUS: Auth (Verified) BODY SITE: COLLECTED DATE/TIME: 10/23/2012 20:33:00 SOURCE: Urine,Straight Cath FREE TEXT SOURCE: FINAL REPORTS Final Ezvhol96,000 - 100,000 CFU/mL Gram Negative Rods , Lactose Fermenters , 2 [place] Types 50,000 - 100,000 CFU/mL Enterococcus Species [...]
--- OUTSIDE RECORDS SUMMARY | 2018-05-23 00:35 | XMS REPORT | CCD ---
:1965 Author Organization [facility] Care Team Providers Name Role Phone Emeli Clark Consulting Provider Allergies, Adverse Reactions, Alerts Substance Reaction Status NKDA Active Problem List Condition Effective Dates Status Acid reflux Resolved Anemia Resolved Anxiety Resolved Arthritis Resolved Depression Resolved Diabetes mellitus type 1 Resolved Edema of lower extremity Resolved Fibromyalgia Resolved Hyperlipidemia Resolved Hypertension Resolved MRSA1, 2 10/23/2012 Active 1nares 10/23/201286224Yfsblvi added by Discern Expert. Medications Medication Instructions [...] 1 doses or times, Dose= 2.2ml/kg, Max eciu=404gg -- "To be infused by Radiology Staff ONLY" 201211/16/2012 Discontinued Dose=2.2ml/kg, Max bqvr=382kj -- "To be infused by Radiology Staff ONLY" calcium gluconate + Sodium 2,000 mg, 20 mL, Route: 11/17/2012 11/17/2012 Completed Chloride 0.9% IV 80 mL IVPB, ONCE, Dosing Weight 103.21, kg, Start date: 11/17/12 11:02:00, Stop date: 11/17/12 11:02:00 enoxaparin 40 mg, 0.4 mL, Route: 11/16/2012 11/17/2012 Discontinued SUB-Q, Drug form: INJ, [id number], Dosing Weight 100, kg, Start date: 11/16/12 [...] date: 11/16/12 13:40:00, Stop date: 11/16/12 13:40:00 Byron 5/325 oral tablet 1 tab, Route: PO, [...] the clinical guidelines of the [place] Diabetes [employer].7Interpretive Data: Adult reference range values [...]
--- OUTSIDE RECORDS SUMMARY | 2018-05-23 00:36 | XMS REPORT | CCD ---
:1965 Author Organization [facility] Care Team Providers Name Role Phone Marcela Michaelsbhumika Westbrook Consulting Provider Alberto Mata Consulting Provider Allergies, Adverse Reactions, Alerts Substance Reaction Status NKDA Active Problem List Condition Effective Dates Status Acid reflux Resolved Anemia Resolved Anxiety Resolved Arthritis Resolved Depression Resolved Diabetes mellitus type 1 Resolved Edema of lower extremity Resolved Fibromyalgia Resolved Hyperlipidemia Resolved Hypertension Resolved [place] - Myocardial infarction 10/22/2012 Resolved MRSA1, 2, 3, 4 10/23/2012 Active Neuropathy Resolved - Nares - Fsune1bcmnm 10/23/201283020Ttmifpn added by Discern Expert. Medications Medication Instructions [...] IVPB, Drug 12/02/2012 12/02/2012 Discontinued form: PDR/INJ, [id number], Dosing Weight 100, kg, Start date: 12/02/12 [...] 11/29/2012 11/29/2012 Discontinued SUB-Q, Drug form: INJ, [id number], Dosing Weight 101.364, kg, Start date: 11/29/12 [...] mg, 1 supp, Route: 12/04/2012 12/07/2012 Discontinued OK, Drug form: SUPP, Q4H, Dosing Weight 100, [...] date: 12/04/12 23:39:00, Stop date: 12/04/12 23:39:00 [place] 7.5/325 oral tablet 1 tab, Route: PO, [...] IVPB, Drug 11/29/2012 12/01/2012 Discontinued form: PDR/INJ, [id number], Dosing Weight 100, kg, Start date: 11/29/12 [...] 7:47:00 Phenergan 25 mg rectal 1 supp, OK, Q6H, PRN, 9 11/29/2012 Ordered suppository supp, [...] by the Molecular Diagnostic Laboratory within the [facility]. The Molecular Diagnostic Laboratory is [...] values reflect the clinical guidelines of the [place] Diabetes Association.11Interpretive Data: Adult reference range values reflect the clinical guidelines of the [place] Diabetes [employer].12Interpretive Data: Adult reference range values reflect the clinical guidelines of the [place] Diabetes [employer].13Interpretive Data: No established reference ranges.14Interpretive [...] Data: Heparin Therapeutic Range: 57 - 92 Goysrnq10Snwdjlhfoxpa Data: Heparin Therapeutic Range: 57 - 92 [...] Catch FREE TEXT SOURCE: FINAL REPORTS Final Cuyxia08,000 - 50,000 CFU/mL Yeast <10,000 CFU/mL Skin EsPRELIMINARY REPORTS Preliminary ReportNo Growth; Holding Procedures Procedures Date Related Diagnosis Heart procedure 1 1cardiac stent for CA
--- OUTSIDE RECORDS SUMMARY | 2018-05-23 00:36 | XMS REPORT | CCD ---
:1965 Author Organization [facility] Care Team Providers Name Role Phone JohnbeckiReno [...] 10/23/2012 Active Neuropathy Resolved - Nares/ - Afxzf2wirov 10/23/201236194Yeqjvux added by Discern Expert. Medications Medication Instructions [...] 03/08/13 3:17:00, Stop date: 03/08/13 3:17:00 lidocaine-epi 1%-1:653707 1 ml, Route: SUB-Q, Drug 03/07/2013 03/07/2013 [...] date: 03/07/13 2:35:00, Stop date: 03/07/13 2:35:00 [place]eter[place] 5/325 oral tablet 1 tab, PO, Q6H, [...] Results BEDSIDE GLUCOSE TESTING Most recent to [facility] 1 2 3 [Reference Range]: Gluc [...] Reportable Limit: 200 mg/dL.URINALYSIS Most recent to [facility] [Reference Range]: 1 2 3 UA [...] values reflect the clinical guidelines of the [place] Diabetes Association.8Interpretive Data: Adult reference range values reflect the clinical guidelines of the [place] Diabetes [employer].9Interpretive Data: Adult reference range values reflect the clinical guidelines of the [place] Diabetes Association.HEMATOLOGY Most recent to oldest 1 [...]
--- OUTSIDE RECORDS SUMMARY | 2018-05-23 00:37 | XMS REPORT | CCD ---
:1965 Author Organization [facility] Care Team Providers Name Role Phone Sukhwinder Renteria Referring Provider Allergies, Adverse Reactions, Alerts Substance Reaction Status NKDA Active Problem List Condition Effective Dates Status Acid reflux Resolved Anemia Resolved Anxiety Resolved Arthritis Resolved Depression Resolved Diabetes mellitus type 1 Resolved Edema of lower extremity Resolved Fibromyalgia Resolved Gastric ulcer Resolved Hyperlipidemia Resolved Hypertension Resolved ID - Myocardial infarction 10/22/2012 Resolved MRSA1, 2, 3, 4 10/23/2012 Active Neuropathy Resolved - Nares - Msgbo7bcufj 10/23/201208901Nrvpbag added by Discern Expert. Medications Medication Instructions [...]
--- OUTSIDE RECORDS SUMMARY | 2018-05-23 00:37 | XMS REPORT | CCD ---
:1965 Author Organization [facility] Care Team Providers Name Role Phone Alberto [...] 10/23/2012 Active Neuropathy Resolved - Nares - Rddzo7vpmuu 10/23/201206700Hpawrpo added by Discern Expert. Medications Medication Instructions Start Date End Date Status acetaminophen-hydrocod 1 tab, Route: PO, Drug Form: 07/12/2013 07/14/2013 Discontinued one 325 mg-5 mg oral TAB, Dosing Weight 86.364, tablet kg, Q4H, PRN Pain, Start date: 07/12/13 18:23:00, Duration: 30 day, Stop date: 08/11/13 18:22:00(Same as: Palmer 325/5) Do not exceed 4gm/day of acetaminophen. [...] 1 doses or times, Dose =2.2ml/kg, Max gahs=413mj -- "To be infused by Radiology Staff ONLY" 201207/12/2013 Completed Dose=2.2ml/kg, Max skgn=884rw -- "To be infused by Radiology Staff [...] day, Stop date: 08/11/13 9:00:00(Same as: Lopressor) Palmer 5/325 oral 1 tab, Route: PO, Dosing [...] date: 08/11/13 9:00:00(Same as: Mag-Ox 400)Magnesium oxide 385ou=937tz elemental magnesiumDose=____mg magnesium oxide (___mg elemental magnesium) [...] [Negative] Negative 1 (07/13/2013 00:00:59) 1Interpretive Data: Collect illumigene Clostridium difficile assay utilizes loop-mediated isothermalDNA amplification (LAMP) technology to detect a 204 bp region of the tcdA gene within the PaLoc genesegment present in all known toxigenic C. difficile strains. The assay utilizes FDA cleared IVD reagents. Performance characteristics have been verified by the Molecular [facility] Laboratory within the [facility]. The Molecular Diagnostic Laboratory is [...] /LPF] Many /LPF *ABN* (07/12/2013 03:00:00) UA [place] Yeast [None Seen /HPF] Moderate /HPF *ABN* [...] values reflect the clinical guidelines of the [place] Diabetes [employer].9Interpretive Data: Adult reference range values reflect the clinical guidelines of the [place] Diabetes [employer].10Interpretive Data: Adult reference range values reflect the clinical guidelines of the [place] Diabetes [employer].HEMATOLOGY Most recent to oldest [Reference [...] to oldest [Reference Range]: 1 2 3 [place]-HIV 1/2 Ab [Negative] Negative *NA* (07/14/2013 00:27:00) [place]-Hep C Ab [Negative] Negative *NA* (07/14/2013 00:27:00) CDC-HIV 1/2 Ab [Negative] Negative *NA* (07/12/2013 16:02:06)
--- OUTSIDE RECORDS SUMMARY | 2018-05-23 00:37 | XMS REPORT | CCD ---
[...] Gastric ulcer Resolved Hyperlipidemia Resolved Hypertension Resolved [place] - Myocardial infarction 10/22/2012 Resolved MRSA1, 2, 3, 4 10/23/2012 Active Neuropathy Resolved - Nares - Ytpjd6rgkvq 10/23/201262197Owzmlwl added by Discern Expert. Medications Medication Instructions [...] values reflect the clinical guidelines of the [place] Diabetes [employer].7Interpretive Data: Adult reference range values reflect the clinical guidelines of the [place] Diabetes [employer].HEMATOLOGY Most recent to oldest [Reference [...]
--- OUTSIDE RECORDS SUMMARY | 2018-05-23 00:38 | XMS REPORT | CCD ---
:[address] [facility] Care Team Providers Name Role Phone Robert Wooten Consulting Provider Allergies, Adverse Reactions, Alerts Substance Reaction Status NKDA Active Problem List Condition Effective Dates Status Acid reflux Resolved Anemia Resolved Anxiety Resolved Arthritis Resolved Depression Resolved Diabetes mellitus type 1 Resolved Edema of lower extremity Resolved Fibromyalgia Resolved Gastric ulcer Resolved Hyperlipidemia Resolved Hypertension Resolved [place] - Myocardial infarction 10/22/2012 Resolved MRSA1, 2, 3, 4 10/23/2012 Active Neuropathy Resolved - Nares - Cadgx8kngur 10/23/201235013Qrndnqq added by Discern Expert. Medications Medication Instructions [...] clinical guidelines of the [place] Diabetes Association.HEMATOLOGY Most recent to oldest [Reference [...]
--- OUTSIDE RECORDS SUMMARY | 2018-05-23 00:38 | XMS REPORT ---
:1965 Author Organization [facility] Address [address] [place] [address] [address] [place] [address] Care Team Providers Name Role Phone MILO [...] (BEAKER) (test 200 mg/dL 70-110 TESTED AT [facility] [address] [facility] [id number]) [facility] [address] [id number] 12:24:00 Test Item Value Reference Range Comments SODIUM (BEAKER) (test gnsp=313) 136 meq/L 136-145 POTASSIUM (BEAKER) (test jlyv=612) 5.4 meq/L 3.5-5.1 CHLORIDE (BEAKER) (test ocrw=514) 102 meq/L 98-107 CO2 (BEAKER) (test zttt=358) 25 meq/L 22-29 [id number] 12:24:00 Test Item Value Reference Range Comments GLUCOSE RANDOM (BEAKER) (test skuw=103) 353 mg/dL 70-105 BUN AND [id number] 12:24:00 Test Item Value Reference Range Comments BLOOD UREA NITROGEN 14 mg/dL 7-21 (BEAKER) (test xnxm=554) CREATININE (BEAKER) (test 1.08 mg/dL 0.57-1.25 guts=386) EGFR (BEAKER) (test 53 mL/min/1.73 sq m ESTIMATED GFR IS NOT wnmq=2026) ACCURATE CREATININE CLEARANCE IN PREDICTING GLOMERULAR FILTRATION RATE. ESTIMATED GFR IS NOT APPLICABLE FOR DIALYSIS PATIENTS. POCT-HEMOGLOBIN [id number] 11:43:00 Test Item Value Reference Range Comments POC-HEMOGLOBIN METER 12.1 g/dL 12.0-15.0 TESTED AT [address] ([facility]) (test bbuy=0291) [facility] [address] POCT-GLUCOSE [id number] 11:43:00 Test Item Value Reference Range Comments POC-GLUCOSE METER ([facility]) 320 mg/dL 70-110 Verify with Lab draw/TESTED AT (test vysp=3491) [address] [address]
--- NOTE | 2018-05-23 02:36 | ER ---
Nurse's Notes [facility] Name: Ila Pérez Age: 52 yrs Sex: Female : 1965 Arrival Date: 05/22/2018 Time: 23:29 Bed 17 Private MD: Diagnosis: Contusion of left hip;Unspecified sprain of left wrist Presentation: 05/22 23:47 Presenting complaint: Patient states: About two hours ago she slipped on something in ea the kitchen, pt reports she tried to catch herself with her left arm. Pt complains of pain to left arm and wrist and left hip. Denies hitting head or LOC. Transition of care: patient was not received from another setting of care. Onset of symptoms was May 22, 2018. Risk Assessment: Do you want to hurt yourself or someone else? Patient reports no desire to harm self or others. Initial Sepsis Screen: Does the patient meet any 2 criteria? No. Patient's initial sepsis screen is negative. Does the patient have a suspected source of infection? No. Patient's initial sepsis screen is negative. Care prior to arrival: None. 23:47 Method Of Arrival: Wheelchair ea 23:47 Acuity: DEVONTE 3 ea Triage Assessment: 23:47 General: Appears uncomfortable, Behavior is calm, cooperative, appropriate for age. ea Pain: Complains of pain in low back area, left hip and left arm Pain currently is 8 out of 10 on a pain scale. Quality of pain is described as aching, Pain began 2 hours ago. Is continuous. EENT: No signs and/or symptoms were reported regarding the EENT system. Neuro: Level of Consciousness is awake, alert, obeys commands, Oriented to person, place, time, situation. Cardiovascular: Heart tones S1 S2 present Patient's skin is warm and dry. Respiratory: Airway is patent Respiratory effort is even, unlabored, Respiratory pattern is regular, symmetrical, Breath sounds are clear bilaterally. GI: No signs and/or symptoms were reported involving the gastrointestinal system. Bowel sounds present X 4 quads. : No signs and/or symptoms were reported regarding the genitourinary system. Derm: Skin is pink, warm \T\ dry. Musculoskeletal: Reports pain in posterior aspect of left shoulder, left elbow and left wrist. Injury Description: Bruise sustained to left arm and lateral aspect of left knee. Historical: - Allergies: 23:53 Gluten Protein; ea - Home Meds: 05/23 00:00 Albuterol Inhl [Active]; amoxicillin and tylenol #3 for dental procedure [Active]; ea aspirin 81 mg Oral chew 1 tab once daily [Active]; benzonatate 100 mg Oral cap 1 cap twice a day [Active]; bupropion HCl 150 mg Oral TbER once daily [Active]; Carafate 100 mg/mL Oral susp 10 mL three times a day [Active]; cholestopl 1 mg twice a day [Active]; Cinnamon 500 mg Oral cap 2 cap daily [Active]; Claritin 10 mg Oral tab 1 tab once daily [Active]; cyclobenzaprine 10 mg Oral tab twice a day [Active]; D3 2000 IU 2 per day [Active]; diphenoxylate-atropine 2.5-0.025 mg Oral tab 1-2 tablets every 6 hours [Active]; duloxetine 60 mg Oral cpDR 2 caps once daily [Active]; ferrous sulfate 325 mg (65 mg iron) Oral TbEC twice a day [Active]; furosemide 20 mg Oral tab one to two tabs every morning [Active]; G[place] 120 mg daily [Active]; Glucagon Emergency Kit (human) 1 mg IM kit 1 mL [Active]; Glucosamine Oral [Active]; Humalog 100 unit/mL Sub-Q soln [Active]; hydroxyzine HCl 25 mg Oral tab 1 tab twice a day [Active]; k2 100 mcg bid [Active]; Lantus 18 U Sub-Q soln daily [Active]; lisinopril 5 mg Oral tab 1 tab once daily [Active]; lorazepam 1 mg Oral tab twice a day [Active]; lorazepam 1 mg Oral tab 1 tab 3 times per day [Active]; Lyrica Oral 150 mg 2 times per day [Active]; Vasculera 630 mg Oral tab daily [Active]; pantoprazole 40 mg Oral TbEC 1 tab 2 times per day [Active]; trazodone 50 mg Oral tab nightly [Active]; metoprolol succinate 25 mg Oral Tb24 1 tab once daily [Active]; multivitamin Oral cap [Active]; nitroglycerin 0.4 mg SL subl 1 tab every 5 minutes [Active]; Myrbetriq 25 mg Oral Tb24 1 tab once daily [Active]; ondansetron HCl 8 mg Oral tab [Active]; Rozerem 8 mg Oral tab 1 tab bedtime [Active]; tramadol 50 mg Oral tab 1 tab three times a day [Active]; - PMHx: 05/22 23:53 Tachycardia; sleep disorder; raynaud's; neuropathy; Myocardial infarction; Hypertension;ea 05/23 00:00 High Cholesterol; heart disease; GERD; gastroporeisis; Fibromyalgia; Esophagitis; ea Diabetes - IDDM; Depression; Chronic pain; Arthritis; Anxiety; - PSHx: 05/22 23:53 ; trigger finger release; rotator cuff; Knee surgery; Tonsillectomy; ea Cholecystectomy; Carpal Tunnel Repair; cataract sx; Gastric Bypass; - Immunization history:: Adult Immunizations up to date. - Social history:: Smoking status: Patient/guardian denies using tobacco. - Ebola Screening: : No symptoms or risks identified at this time. Screenin/17 00:04 Abuse screen: Denies threats or abuse. Nutritional screening: No deficits noted. ea Tuberculosis screening: No symptoms or risk factors identified. Fall Risk Fall in past 12 months (25 points). Assessment: 00:06 Reassessment: see triage assessment. ea 01:05 Reassessment: Patient and/or family updated on plan of care and expected duration. Pain ea level reassessed. Patient is alert, oriented x 3, equal unlabored respirations, skin warm/dry/pink. 02:26 Reassessment: Patient and/or family updated on plan of care and expected duration. Pain ea level reassessed. Patient is alert, oriented x 3, equal unlabored respirations, skin warm/dry/pink. provider at bedside updating pt on plan of care. 02:48 Reassessment: Patient and/or family updated on plan of care and expected duration. Pain ea level reassessed. Patient is alert, oriented x 3, equal unlabored respirations, skin warm/dry/pink. Discharge instructions given to patient, verbalized the understanding of instruction. Patient states feeling better. Vital Signs: 05/22 23:47 BP 148 / 68; Pulse 86; Resp 18; Temp 98.7(O); Pulse Ox 100% on R/A; Weight 95.25 kg; ea Height 5 ft. 4 in. (162.56 cm); Pain 9/10; 05/23 00:00 BP 137 / 85; Pulse 89; Resp 18; Pulse Ox 100% on R/A; ea 01:00 BP 158 / 70; Pulse 83; Resp 18; Pulse Ox 99% ; ea 01:49 BP 135 / 77; Pulse 83; Resp 19; Pulse Ox 99% on R/A; mt 02:27 BP 142 / 89; Pulse 80; Resp 18; Pulse Ox 100% ; ea 05/22 23:47 Body Mass Index 36.05 (95.25 kg, 162.56 cm) ea ED Course: 05/22 23:29 Patient arrived in ED. ds1 23:46 Delmis Rosales, MARTÍNEZ is Primary Nurse. ea 23:47 Patient has correct armband on for positive identification. Bed in low position. Call ea light in reach. Side rails up X2. 23:47 Arm band placed on right wrist. Patient placed in an exam room, on a stretcher, on ea pulse oximetry. 23:50 Triage completed. ea 23:50 Barrett Sexton NP is PHCP. pm1 23:50 Junaid Garber MD is Attending Physician. pm1 05/23 01:09 X-ray completed. Portable x-ray completed in exam room. Patient tolerated procedure kw well. 01:09 Hip Left 2 View XRAY In Process Unspecified. EDMS 01:09 Wrist Left (3 View) XRAY In Process Unspecified. EDMS 02:28 No provider procedures requiring assistance completed. Patient did not have IV access ea during this emergency room visit. Administered Medications: 00:18 Drug: [place] 5 mg-325 mg 1 tabs Route: PO; ea 02:13 Follow up: Response: No adverse reaction; Pain is decreased ea Outcome: 02:35 Discharge ordered by . pm1 02:49 Discharged to home ambulatory, with significant other. ea 02:49 Condition: improved 02:49 Discharge instructions given to patient, Instructed on discharge instructions, follow up and referral plans. medication usage, Demonstrated understanding of instructions, follow-up care, medications, Prescriptions given X 1. 02:50 Patient left the ED. ea Signatures: Dispatcher [employer] EDMT MonsivaisVernoni ds1 Fartun Galo Barrett Sexton NP CATHETER BUILDER pm1 Radha Wild wi Delmis Rosales RN RN ea
--- NOTE | 2018-05-23 02:36 | EDPHYS ---
Physician Documentation [facility] Name: Ila Pérez Age: 52 yrs Sex: Female : 1965 Arrival Date: 05/22/2018 Time: 23:29 Bed 17 Private MD: ED Physician Junaid Garber HPI: 05/23 00:00 This 52 yrs old Female presents to ER via Wheelchair with complaints of Fall pm1 Injury. 00:00 Details of fall: The patient fell from an upright position, while standing. Onset: The pm1 symptoms/episode began/occurred just prior to arrival. Associated injuries: The patient sustained left wrist and left hip. The patient has not recently seen a physician. Patient was cooking in the kitchen and spilled some grease on the floor and slipped on it. Patient landed on her left hip and left wrist. Patient did not hit her head and neck. No headache. No LOC. Historical: - Allergies: 05/22 23:53 Gluten Protein; ea - Home Meds: 05/23 00:00 Albuterol Inhl [Active]; amoxicillin and tylenol #3 for dental procedure [Active]; ea aspirin 81 mg Oral chew 1 tab once daily [Active]; benzonatate 100 mg Oral cap 1 cap twice a day [Active]; bupropion HCl 150 mg Oral TbER once daily [Active]; Carafate 100 mg/mL Oral susp 10 mL three times a day [Active]; cholestopl 1 mg twice a day [Active]; Cinnamon 500 mg Oral cap 2 cap daily [Active]; Claritin 10 mg Oral tab 1 tab once daily [Active]; cyclobenzaprine 10 mg Oral tab twice a day [Active]; D3 2000 IU 2 per day [Active]; diphenoxylate-atropine 2.5-0.025 mg Oral tab 1-2 tablets every 6 hours [Active]; duloxetine 60 mg Oral cpDR 2 caps once daily [Active]; ferrous sulfate 325 mg (65 mg iron) Oral TbEC twice a day [Active]; furosemide 20 mg Oral tab one to two tabs every morning [Active]; [place] 120 mg daily [Active]; Glucagon Emergency Kit (human) 1 mg IM kit 1 mL [Active]; Glucosamine Oral [Active]; Humalog 100 unit/mL Sub-Q soln [Active]; hydroxyzine HCl 25 mg Oral tab 1 tab twice a day [Active]; k2 100 mcg bid [Active]; Lantus 18 U Sub-Q soln daily [Active]; lisinopril 5 mg Oral tab 1 tab once daily [Active]; lorazepam 1 mg Oral tab twice a day [Active]; lorazepam 1 mg Oral tab 1 tab 3 times per day [Active]; Lyrica Oral 150 mg 2 times per day [Active]; Vasculera 630 mg Oral tab daily [Active]; pantoprazole 40 mg Oral TbEC 1 tab 2 times per day [Active]; trazodone 50 mg Oral tab nightly [Active]; metoprolol succinate 25 mg Oral Tb24 1 tab once daily [Active]; multivitamin Oral cap [Active]; nitroglycerin 0.4 mg SL subl 1 tab every 5 minutes [Active]; Myrbetriq 25 mg Oral Tb24 1 tab once daily [Active]; ondansetron HCl 8 mg Oral tab [Active]; Rozerem 8 mg Oral tab 1 tab bedtime [Active]; tramadol 50 mg Oral tab 1 tab three times a day [Active]; - PMHx: 05/22 23:53 Tachycardia; sleep disorder; raynaud's; neuropathy; Myocardial infarction; Hypertension;ea 05/23 00:00 High Cholesterol; heart disease; GERD; gastroporeisis; Fibromyalgia; Esophagitis; ea Diabetes - IDDM; Depression; Chronic pain; Arthritis; Anxiety; - PSHx: 05/22 23:53 ; trigger finger release; rotator cuff; Knee surgery; Tonsillectomy; ea Cholecystectomy; Carpal Tunnel Repair; cataract sx; Gastric Bypass; - Immunization history:: Adult Immunizations up to date. - Social history:: Smoking status: Patient/guardian denies using tobacco. - Ebola Screening: : No symptoms or risks identified at this time. ROS: 05/23 00:00 Constitutional: Negative for fever, chills, and weight loss, Eyes: Negative for injury, pm1 pain, redness, and discharge, ENT: Negative for injury, pain, and discharge, Neck: Negative for injury, pain, and swelling, Cardiovascular: Negative for chest pain, palpitations, and edema, Respiratory: Negative for shortness of breath, cough, wheezing, and pleuritic chest pain, Abdomen/GI: Negative for abdominal pain, nausea, vomiting, diarrhea, and constipation, Back: Negative for injury and pain. Skin: Negative for injury, rash, and discoloration, Neuro: Negative for headache, weakness, numbness, tingling, and seizure. MS/extremity: Positive for contusion, of the left hip, Pain to left wrist. Exam: 00:00 Constitutional: This is a well developed, well nourished patient who is awake, alert, pm1 and in no acute distress. Head/Face: Normocephalic, atraumatic. Eyes: Pupils equal round and reactive to light, extra-ocular motions intact. Lids and lashes normal. Conjunctiva and sclera are non-icteric and not injected. Cornea within normal limits. Periorbital areas with no swelling, redness, or edema. ENT: Nares patent. No nasal discharge, no septal abnormalities noted. Tympanic membranes are normal and external auditory canals are clear. Oropharynx with no redness, swelling, or masses, exudates, or evidence of obstruction, uvula midline. Mucous membranes moist. Neck: Trachea midline, no thyromegaly or masses palpated, and no cervical lymphadenopathy. Supple, full range of motion without nuchal rigidity, or vertebral point tenderness. No Meningismus. Chest/axilla: Normal chest wall appearance and motion. Nontender with no deformity. No lesions are appreciated. Cardiovascular: Regular rate and rhythm with a normal S1 and S2. No gallops, murmurs, or rubs. Normal PMI, no JVD. No pulse deficits. Respiratory: Lungs have equal breath sounds bilaterally, clear to auscultation and percussion. No rales, rhonchi or wheezes noted. No increased work of breathing, no retractions or nasal flaring. Abdomen/GI: Soft, non-tender, with normal bowel sounds. No distension or tympany. No guarding or rebound. No evidence of tenderness throughout. Back: No spinal tenderness. No costovertebral tenderness. Full range of motion. 00:00 Musculoskeletal/extremity: Extremities: grossly normal except: noted in the left wrist: tenderness, There is no evidence of decreased ROM, deformity. 00:00 Skin: Appearance: normal except for affected area, injury, contusion(s), that are superficial, of the left hip. 00:00 Neuro: Orientation: is normal, Motor: moves all fours, Gait: is steady, at a normal pace, without difficulty. Vital Signs: 05/22 23:47 BP 148 / 68; Pulse 86; Resp 18; Temp 98.7(O); Pulse Ox 100% on R/A; Weight 95.25 kg; ea Height 5 ft. 4 in. (162.56 cm); Pain 05/16; 05/23 00:00 BP 137 / 85; Pulse 89; Resp 18; Pulse Ox 100% on R/A; ea 01:00 BP 158 / 70; Pulse 83; Resp 18; Pulse Ox 99% ; ea 01:49 BP 135 / 77; Pulse 83; Resp 19; Pulse Ox 99% on R/A; mt 02:27 BP 142 / 89; Pulse 80; Resp 18; Pulse Ox 100% ; ea 05/22 23:47 Body Mass Index 36.05 (95.25 kg, 162.56 cm) ea MDM: 05/22 23:51 Patient medically screened. pm1 05/23 02:31 Data reviewed: vital signs. Data interpreted: Pulse oximetry: on room air is 100 %. pm1 Interpretation: normal. Counseling: I had a detailed discussion with the patient and/or guardian regarding: the historical points, exam findings, and any diagnostic results supporting the discharge/admit diagnosis, radiology results, the need for outpatient follow up, a orthopedic surgeon, to return to the emergency department if symptoms worsen or persist or if there are any questions or concerns that arise at home. 05/23 01:51 Order name: Urine Dipstick--Ancillary (enter results) ms 05/23 01:51 Order name: Urine --Ancillary (enter results) ms 05/22 23:59 Order name: Hip Left 2 View XRAY pm1 05/22 23:59 Order name: Urine Dipstick-Ancillary (obtain specimen); Complete Time: 02:13 pm1 05/22 23:59 Order name: Wrist Left (3 View) XRAY pm1 05/22 23:59 Order name: Urine Test (obtain specimen); Complete Time: 02:13 pm1 05/23 02:31 Order name: Splint - Wrist; Complete Time: 02:34 pm1 Administered Medications: 00:18 Drug: [place] 5 mg-325 mg 1 tabs Route: PO; ea 02:13 Follow up: Response: No adverse reaction; Pain is decreased ea Disposition: 03:12 Co-signature as Attending Physician, Junaid Garber MD. Disposition: 05/23/18 02:35 Discharged to Home. Impression: Contusion of left hip, Unspecified sprain of left wrist. - Condition is Stable. - Discharge Instructions: Contusion, Fall Prevention in the Home, Wrist Splint, Hip Pain, Wrist Sprain. - Prescriptions for Tylenol- Codeine #3 300-30 mg Oral Tablet - take 2 tablets by ORAL route every 6 hours As needed; 20 tablet. - Medication Reconciliation Form, Thank You Letter, Antibiotic Education, Prescription Opioid Use form. - Follow up: Emergency Department; When: As needed; Reason: Worsening of condition. Follow up: Private Physician; When: 2 - 3 days; Reason: Recheck today's complaints, Continuance of care, Re-evaluation by your physician. - Problem is new. - Symptoms have improved. Signatures: Dispatcher [employer] EDMS Barrett Sexton, [employer] CONSULTANT pm1 Delmis Rosales RN RN ea Starr, Gregory, MD MD Corrections: (The following items were deleted from the chart) 02:50 02:35 05/23/2018 02:35 Discharged to Home. Impression: Contusion of left hip; ea Unspecified sprain of left wrist. Condition is Stable. Forms are Medication Reconciliation Form, Thank You Letter, Antibiotic Education, Prescription Opioid Use. Follow up: Emergency Department; When: As needed; Reason: Worsening of condition. Follow up: Private Physician; When: 2 - 3 days; Reason: Recheck today's complaints, Continuance of care, Re-evaluation by your physician. Problem is new. Symptoms have improved. pm1
[2018-05-23 02:54] VITALS: TEMP 98.7
[2018-05-23 02:59] VITALS: BP 142/89; O2SAT 100
[2018-05-23 04:03] LABS: Urine Blood NEGATIVE (NEG); Urine Glucose NEGATIVE (NEG); Urine Protein NEGATIVE (NEG)
--- NOTE | 2018-05-23 08:17 | RAD REPORT ---
EXAM DESCRIPTION: RAD - Wrist Left 3 View - 05/23/2018 1:10 am CLINICAL HISTORY: Fall, wrist pain COMPARISON: None. FINDINGS: No fracture is identified. There is no dislocation or periosteal reaction noted. No foreig n body in the soft tissues. Patient has a minimal negative ulnar variance configuration. Arterial darlene cifications are present. Slight narrowing of the radiocarpal joint space seen. IMPRESSION: Mild degenerative change present but no acute findings seen.
--- NOTE | 2018-05-23 08:18 | RAD REPORT ---
EXAM DESCRIPTION: RAD - Hip Left 2 View - 05/23/2018 1:09 am CLINICAL HISTORY: Fall, hip pain COMPARISON: None. FINDINGS: AP and frogleg views of the left hip were obtained. There is no fracture or dislocation. N o AVN or focal femoral head abnormality. There does appear to be mild degenerative change along the s uperior acetabular rim and slight joint space narrowing. Overlying soft tissue limits detail. No frac ture of the left hemipelvis identifiable. No suspicious soft tissue finding. IMPRESSION: Negative left hip examination for acute or significant findings. Hip joint degenerative changes are present.
== END 2018-05-23 02:50 | disposition home or self-care (01) ==
LOC: ER 23:27
DX: S63.502A Unspecified sprain of left wrist, initial encounter (principal); S70.02XA Contusion of left hip, initial encounter; W01.0XXA Fall on same level from slipping, tripping and stumbling without subsequent striking against object, initial encounter; Y93.9 Activity, unspecified; Y92.010 Kitchen of single-family (private) house as the place of occurrence of the external cause; Z91.018 Allergy to other foods; I10 Essential (primary) hypertension; E78.00 Pure hypercholesterolemia, unspecified; F41.8 Other specified anxiety disorders; M19.90 Unspecified osteoarthritis, unspecified site; I51.9 Heart disease, unspecified
CPT/HCPCS: 81003; 81025; 99284

== ENCOUNTER 2018-06-07 10:44 | Emergency (ER) | payer MEDICARE ==
--- OUTSIDE RECORDS SUMMARY | 2018-06-07 10:47 | XMS REPORT | Clinical Summary ---
:1965 Author Organization [facility]ly [facility] Address [address] [place] [address] Phone Care Team Providers Name Role Phone [...] MG capsule mouth 2 (two) times daily. aspirin 81 MG Take 81 mg by mouth Active chewable tablet daily. lisinopril Take 5 mg by mouth Active (PRINIVIL,ZESTRIL) 5 daily. MG tablet buPROPion Take 150 mg by Active (WELLBUTRIN [...] as needed for Nausea. ondansetron (ZOFRAN) Take 8 mg by mouth Active 4 MG tablet as needed for Nausea . furosemide (LASIX) Take 40 mg by mouth Active 40 MG tablet as needed. pantoprazole Take 40 mg by mouth Active (PROTONIX) 40 MG daily. tablet LORazepam (ATIVAN) 1 Take 1 mg by mouth Active MG tablet every 6 (six) hours as needed for Anxiety. insulin glargine Inject 24 Units Active (LANTUS) 100 unit/mL subcutaneously injection every morning Use as directed . metoprolol Take 25 mg by mouth Active (TOPROL-XL) 50 MG 24 daily . hr tablet traZODone (DESYREL) Take 50 mg by mouth Active 50 MG tablet nightly. dicyclomine (BENTYL) Take 20 mg by mouth Active 20 mg tablet as needed. acetaminophen Take 500 mg by Active (TYLENOL) 500 MG mouth every 6 (six) tablet hours as needed for Pain. insulin detemir Inject Discontinued (LEVEMIR) 100 subcutaneously 7 unit/mL (3 mL) InPn nightly. 12 UNITS injection IN AM 4 UNITS IN PM. meloxicam (MOBIC) 15 Take 15 mg by mouth Discontinued MG tablet daily. 7 prasugrel (EFFIENT) Take 10 mg by mouth Discontinued 10 mg Tab tablet daily. 8 metoprolol Take 25 mg by mouth Discontinued (LOPRESSOR) 25 MG 2 (two) times 7 tablet daily. simvastatin (ZOCOR) Take 40 mg by mouth Discontinued 40 MG tablet nightly. 8 naproxen Take 220 mg by Discontinued (ALEVE,ANAPROX,MIDOL mouth as needed. 7 ) 220 MG tablet clonazePAM Take 0.5 mg by Discontinued (KLONOPIN) 0.5 MG mouth 2 (two) times 7 tablet daily as needed for Anxiety. sulfamethoxazole-tri Take 1 tablet by Discontinued methoprim (BACTRIM mouth 2 (two) times 7 DS) 800-160 mg per daily. tablet ferrous sulfate 325 Take 325 mg by Discontinued (65 FE) MG tablet mouth 2 (two) times 8 daily. acetaminophen Take 650 mg by Discontinued (TYLENOL) 650 MG CR mouth 2 (two) times 8 tablet daily. Active Problems Problem Noted Date Trigger finger of left thumb 06/25/2017 Encounters Date Type Specialty Care Team Description 05/31/2018 Hospital Encounter Gastroenterology Boone Barahona [facility] 05/31/2018 Procedure Pass Gastroenterology 05/31/2018 Surgery Gastroenterology Boone Barahona UPPER ENDOSCOPY [facility] 05/30/2018 Anesthesia Event Gastroenterology Octaviano Mejia MD 05/24/2018 Hospital Encounter Pre-Admission Testing 06/25/2017 Hospital Encounter Jayden Marte MD 06/25/2017 Procedure Pass 06/25/2017 Surgery Jayden Marte TRIGGER B., MD FINGER 06/24/2017 Hospital Encounter Pre-Admission Testing Jayden Marte MD 06/24/2017 Anesthesia Event Sly Malloy MD after 06/06/2017 Social History Tobacco Use Types Packs/Day Years Used Date Current Every Day Smoker 0.5 10 Smokeless Tobacco: Never Used Tobacco Cessation: Ready to Quit: Yes; Counseling Given: Yes Comments: handout to be given dos Alcohol Use Drinks/Week oz/Week Comments No Sex Assigned at Date Recorded Not on file Last Filed Vital Signs Vital Sign Reading Time Taken Blood Pressure 96/55 05/31/2018 2:45 PM CDT Pulse 82 05/31/2018 2:45 PM CDT Temperature 36.7 C (98.1 F) 05/31/2018 2:45 PM CDT Respiratory Rate 16 05/31/2018 2:45 PM CDT Oxygen Saturation 100% 05/31/2018 2:45 PM CDT Inhaled Oxygen Concentration - - Weight 93.8 kg (206 lb 12.8 oz) 05/31/2018 12:40 PM CDT Height 162.6 cm (5' 4") 05/31/2018 12:40 PM CDT Body Mass Index 35.5 05/31/2018 12:40 PM CDT Plan of Treatment Not on file Procedures Procedure Name Priority Date/Time Associated Diagnosis Comments UPPER ENDOSCOPY 05/31/2018 1:00 PM Gastric bypass status CDT for obesity KARSON CORRAL 06/25/2017 1:10 PM Trigger finger of left CDT thumb after 06/06/2017 Results POC-Glucose meter (05/31/2018 2:40 PM)Only the most recent of4 resultswithin the time period is included. Component Value Ref Range POC-Glucose Meter 211 (H)Comment: TESTED AT [address] 70 - 110 mg/[place] [address] Specimen Performing Laboratory Blood [facility] [address] [address] REPORT OF PROCEDURE - ENDOSCOPY URL (05/31/2018 2:37 PM)ECG 12 lead (2016 1:04 PM) Specimen Performing Laboratory GE MUSE Narrative Ventricular Rate 76 BPM Atrial Rate 76 BPM P-R Interval 156 ms QRS Duration 86 ms Q-T Interval 382 ms QTC Calculation(Bazett) 429 ms P Midway 7 degrees R Midway 59 degrees T Midway 28 degrees Normal sinus rhythm Normal ECG No previous ECGs available Confirmed by MD NASSAR CHUNG-SHIN ([id number]) on 07/06/2017 10:28:29 AM Procedure Note Interface, External Ris In - 07/06/2017 10:28 AM CDT Ventricular Rate 76 BPM Atrial Rate 76 BPM P-R Interval 156 ms QRS Duration 86 ms Q-T Interval 382 ms QTC Calculation(Bazett) 429 ms P Midway 7 degrees R Midway 59 degrees T [place]way 28 degrees Normal sinus rhythm Normal ECG [...] PATIENTS. Specimen Performing Laboratory Blood - Arm, [address] [address] Glucose (06/25/2017 11:38 AM) Component Value Ref Range Glucose 353 (H) 70 - 105 mg/dL Specimen Performing Laboratory Blood - Arm, [address] [address] Electrolytes (06/25/2017 11:38 AM) Component Value Ref Range Sodium 136 136 - 145 meq/L Potassium 5.4 (H) 3.5 - 5.1 meq/L Chloride 102 98 - 107 meq/L CO2 25 22 - 29 meq/L Specimen Performing Laboratory Blood - Arm, [address] [address] POC-Hemoglobin meter (06/25/2017 11:34 AM) Component Value Ref Range POC-Hemoglobin Meter 12.1Comment: TESTED AT [address] 12.0 - 15.0 g/ dL [facility] [address] Specimen Performing Laboratory Blood [address] [place] [address] POCT , urine (06/25/2017 10:56 AM) Component Value Ref Range Test Urine, POC Negative Control line present?, POC Yes Background clear?, POC Yes UPT Cassette Lot #, POC [id number] UPT Cassette Expiration Date, POC 11/03/18 Specimen Performing Laboratory Urine after 06/06/2017
--- OUTSIDE RECORDS SUMMARY | 2018-06-07 11:46 | XMS REPORT | Continuity of Care Document ---
:1965 Author Organization Interface Problems Problem Status Onset Classification Date Comments Source Date Reported PAIN IN Active 08/13/20 [facility] ABDOMEN/NAUSEA/TI Medical GHTENESS IN [facility] Center BDDC/GASTROESOPHA Active 07/24/20 [facility] GEAL REFLUX [address] [place] [address] DISEASE Center VOMITING Active 07/11/[address] GASTROPARESIS Active 07/11/[address] CHEST PAIN Active 04/02/[address] Center R/O ACS Active 04/02/[address] HYPERGLYCEMIA Active 03/06/20 [facility] DEHYDRATION [address] [place] [address] GASTROPARESIS Center SOB/CHEST PAIN Active 03/06/[address] NASEAU Active 01/11/[address] N/V Active 11/29/[address] VOMITTING, Active 11/29/19 [facility] DIABETIC, HEART [address] [place] [address] PT Center NAUSEA, VOMITTING Active 11/17/[address] ACS R/O AND Active 11/17/19 [facility] PERSISTANT N/V [address] [place] [address] MRSA<sup>1, Active 10/23/19 Problem 11/19/2012 2Problem [facility] </sup><sup>2</sup 13 added by Medical > Discern Center Expert. MRSA<sup>1, 2, 3, Active 10/23/19 Problem 08/15/2013 4Problem [facility] 4</sup> 13 added by Medical Discern Center Expert. MRSA<sup>1, Active 10/23/19 Problem 04/05/2013 4Problem [facility] </sup><sup>2, 13 added by Medical </sup><sup>3, Discern Center </sup><sup>4</sup Expert. 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 Anemia Resolved Problem 04/05/2013 [facility] Anxiety Resolved Problem 04/05/2013 [facility] Arthritis Resolved Problem 04/05/2013 [facility] Depression Resolved Problem 04/05/2013 [facility] Diabetes mellitus Resolved Problem 04/05/[address] Edema of lower Resolved Problem 04/05/2013 [facility] Fibromyalgia Resolved Problem 04/05/2013 [facility] Hyperlipidemia Resolved Problem 04/05/2013 [facility] Hypertension Resolved Problem 04/05/2013 [facility] Acid reflux Resolved Problem 08/15/2013 [facility] Anemia Resolved Problem 08/15/2013 [facility] Anxiety Resolved Problem 08/15/2013 [facility] Arthritis Resolved Problem 08/15/2013 [facility] Depression Resolved Problem 08/15/2013 [facility] Diabetes mellitus Resolved Problem 08/15/[address] Edema of lower Resolved Problem 08/15/2013 [facility] Fibromyalgia Resolved Problem 08/15/2013 [facility] Gastric ulcer Resolved Problem 08/15/2013 [facility] Hyperlipidemia Resolved Problem 08/15/2013 [facility] Hypertension Resolved Problem 08/15/2013 [facility] Neuropathy Resolved Problem 08/15/2013 [facility] Gastric ulcer Resolved Problem 04/05/2013 [facility] Neuropathy Resolved Problem 04/05/2013 [facility] MORBID OBESITY Active [facility] CHEST PAIN NOS Active [facility] NAUSEA WITH Active [facility] VOMITING [facility] OTHER GENERAL Active [facility] Medications Medication Details Route Status Patient Ordering Order Source Instructions Provider Date Zofran 4 mg 4 mg=1 tab, PO, Active De La Gar[facility] oral tablet BID, # 10 tab, 0 2012 Medical Refill(s) Center Reglan 10 mg 10 mg=1 tab, PO, Active [facility] 08/13[facility] oral tablet QID, # 40 tab, 0 2012 Medical Refill(s) Center IDS med 5 mg, 1 mL, Inactive [facility]ugg[facility] Rate: 30 ml/hr, 2012 Medical Infuse over: [...] mg, 1 mL, Inactive De La Gar[facility] Route: IVPB, 2012 Medical Drug form: INJ, Center ONCE, Dosing Weight 81.818, kg, Priority: STAT, Start date: 08/13/13 13:17:00, Stop date: 08/13/13 13:17:00Do not give IV push. (Same as: Phenergan) Zofran 4 mg, 2 mL, Inactive [facility] Route: IVP, Drug 2012 Medical form: INJ, ONCE, Center Dosing Weight 81.818, kg, Priority: STAT, Start date: 08/13/13 12:41:00, Stop date: 08/13/13 12:41:00(Same as: Zofran) morphine 4 mg, 1 mL, Inactive De [facility] Gar[facility] Sulfate Route: IVP, Drug 2012 Medical form: [...] 10 mg 10 mg, 1 tab, Inactive [facility] oral tablet Route: PO, Drug 2012 Medical form: TAB, Center TID-Before Meals, Dosing Weight 86.364, kg, Start date: 07/14/13 11:30:00, Duration: 30 day, Stop date: 08/13/13 7:30:00(Same as: Reglan) Take 30 min before meals Levemir 15 unit, 0.15 No Longer [facility] mL, Route: Active 2012 Medical SUB-Q, Drug Center form: INJ, BID, Dosing Weight 86.364, kg, Start date: 07/13/13 21:00:00, Duration: 30 day, Stop date: 08/12/13 9:00:00Same as Levemir "single patient use only" pneumococcal 0.5 ml, Route: No Longer [facility] 07/13[facility] 23-valent IM, Drug Form: Active 2012 Medical vaccine INJ, Start date: [place] 07/13/13 9:00:00, Stop date: 07/13/13 9:00:00 influenza virus 0.5 ml, Route: No Longer [facility] 07/13[facility] vaccine, IM, Drug Form: Active 2012 Medical inactivated SUSP, Start Center date: 07/13/13 9:00:00, Stop date: 07/13/13 9:00:00 lisinopril 20 mg, 1 tab, No Longer [facility] 07/13[facility] Route: PO, Drug Active 2012 Medical form: TAB, Center Daily, Dosing Weight 86.364, kg, Start date: 07/13/13 9:00:00, Duration: 30 day, Stop date: 08/11/13 9:00:00(Same as: Prinivil, Zestril) metoprolol 50 mg, Route: No Longer [facility] tartrate PO, Drug form: Active 2012 Medical TAB, Daily, Center Dosing Weight 86.364, kg, Start date: 07/13/13 9:00:00, Duration: 30 day, Stop date: 08/11/13 9:00:00 Lyrica 150 mg, 2 cap, No Longer [facility] Route: PO, Drug Active 2012 Medical form: CAP, BID, Center Dosing Weight 86.364, kg, Start date: 07/13/13 9:00:00, Duration: 30 day, Stop date: 08/11/13 17:00:00(Same as: Lyrica) potassium 20 mEq, 1 tab, No Longer [facility] [place] chloride Route: PO, Drug Active 2012 Medical form: ERTAB, Center Daily, Dosing Weight 86.364, kg, Start date: 07/13/13 9:00:00, Duration: 30 day, Stop date: 08/11/13 9:00:00(Same as: K-Dur 20) "Do Not Crush" With food and full glass of water Effient 10 mg, 1 tab, No Longer [facility] Route: PO, Drug Active 2012 Medical form: TAB, Center Daily, Dosing Weight 86.364, kg, Start date: 07/13/13 9:00:00, Duration: 30 day, Stop date: 08/11/13 9:00:00Same as Effient For patients 60kg, without history of TIA/Ischemic stroke and without likely bypass surgery Protonix 40 mg, 1 tab, No Longer [facility] [place] Route: PO, Drug Active 2012 Medical form: ECTAB, Center BID-Before Meals, Dosing Weight 86.364, kg, Start date: 07/13/13 9:00:00, Stop date: 08/11/13 16:30:00Tablet should not be chewed or crushed. (Same as: Protonix) meloxicam 7.5 mg, Route: No Longer [facility] [place] PO, Drug form: Active 2012 Medical TAB, BID, Dosing Center Weight 86.364, kg, Start date: 07/13/13 9:00:00, Duration: 30 day, Stop date: 08/11/13 17:00:00 magnesium oxide 400 mg, 1 tab, No Longer [facility] Route: PO, Drug Active 2012 Medical form: TAB, Center Daily, Dosing Weight 86.364, kg, Start date: 07/13/13 9:00:00, Duration: 30 day, Stop date: 08/11/13 9:00:00(Same as: Mag-Ox 400) Magnesium oxide [id number] elemental magnesium Dose=____mg magnesium oxide (___mg elemental magnesium) furosemide 40 40 mg, 1 tab, No Longer [facility] mg oral tablet Route: PO, Drug Active 2012 Medical form: TAB, Center Daily, Dosing Weight 86.364, kg, Start date: 07/13/13 9:00:00, Duration: 30 day, Stop date: 08/11/13 9:00:00(Same as: Lasix) May cause GI upset. Give with food or milk. ferrous sulfate 325 mg, 1 tab, No Longer [facility] Route: PO, Drug Active 2012 Medical form: ECTAB, Center TID, Dosing Weight 86.364, kg, Start date: 07/13/13 9:00:00, Duration: 30 day, Stop date: 08/11/13 17:00:00Give with food. "Do Not Crush" clonazepam 0.5 mg, 1 tab, No Longer [facility] Route: PO, Drug Active 2012 Medical form: TAB, TID, Center Dosing Weight 86.364, kg, Start date: 07/13/13 9:00:00, Duration: 30 day, Stop date: 08/11/13 17:00:00(Same As: Klonopin) Insulin regular 5 unit, 0.05 mL, No Longer [facility] Route: SUB-Q, Active 2012 Medical Drug form: [...] 10 mg, 2 mL, No Longer [facility] Route: IVP, Drug Active 2012 Medical form: INJ, Q6H, Center Dosing Weight 86.364, kg, Start date: 07/13/13 0:00:00, Duration: 30 day, Stop date: 08/11/13 18:00:00(Same as: Reglan) normal saline 1,000 mL, Rate: No Longer [facility] 0.9% IV 1,000 200 ml/hr, Active 2012 Medical mL Infuse over: 5 Center hr, Route: IV, Dosing Weight 86.364 kg, Total Volume: 1,000, Start date: 07/12/13 21:08:00, Duration: 3 doses or times, Stop date: 07/13/13 12:07:00 metoprolol 50 mg, 1 tab, No Longer [facility] tartrate Route: PO, Drug Active 2012 Medical form: TAB, Q12H, Center Dosing Weight 86.364, kg, Start date: 07/12/13 21:00:00, Duration: 30 day, Stop date: 08/11/13 9:00:00(Same as: Lopressor) Levemir 12 unit, 0.12 No Longer [facility] mL, Route: Active 2012 Medical SUB-Q, Drug Center form: INJ, BID, Dosing Weight 86.364, kg, Start date: 07/12/13 21:00:00, Duration: 30 day, Stop date: 08/11/13 9:00:00Same as Levemir "single patient use only" Cymbalta 120 mg, 2 cap, No Longer [facility] Route: PO, Drug Active 2012 Medical form: DR, [place] Bedtime, Dosing Weight 86.364, kg, Start date: 07/12/13 21:00:00, Duration: 30 day, Stop date: 08/10/13 21:00:00Non Formulary Drug (Same as: Cymbalta) (Do Not Crush) ProAir HFA 90 2 puff, Route: No Longer [facility] mcg/inh INHALATION, Drug Active 2012 Medical inhalation Form: AERO/A, Center aerosol with Dosing Weight adapter 86.364, kg, QID, PRN Shortness of breath, Start date: 07/12/13 20:09:00, Duration: 30 day, Stop date: 08/11/13 20:08:00Albutero l 90 microgram/inh 8gm HFA Same as: VentAlessio marrerotil aspirin 81 mg 81 mg, 1 tab, No Longer [facility] [place] tablet, enteric Route: PO, Drug Active 2012 Medical coated form: ECTAB, [place] Daily, Dosing Weight 86.364, kg, Start date: 07/12/13 20:00:00, Duration: 30 day, Stop date: 08/11/13 9:00:00Do not crush or chew. (Same As: Ecotrin) glucagon 1 mg, Route: IM, No Longer [facility] Drug form: Active 2012 Medical PDR/INJ, PRN, Center Dosing Weight 86.364, kg, PRN Blood Glucose Results, Start date: 07/12/13 18:26:00, Duration: 30 day, Stop date: 08/11/13 18:25:00 Dextrose 50% 12.5 gm, 25 mL, No Longer [facility] Syringe Route: IVP, Drug Active 2012 Medical Form: INJ, Center Dosing Weight 86.364, kg, PRN, PRN Blood Glucose Results, Start date: 07/12/13 18:26:00, Duration: 30 day, Stop date: 08/11/13 18:25:00 insulin aspart 4 unit, 0.04 mL, No Longer [facility] Route: SUB-Q, Active 2012 Medical Drug form: SOLN, [place] TID-Before Meals, Dosing Weight 86.364, kg, PRN Blood Glucose Results, Start date: 07/12/13 18:26:00, Duration: 30 day, Stop date: 08/11/13 18:25:00Roll in palms of hands gently; Do not shake vigorously. (Same as: NovoLog) "single patient use only" Stable for 28 days at room temperature. Expires in days from Da te tramadol 50 mg 50 mg, 1 tab, No Longer [facility] oral tablet Route: PO, Drug Active 2012 Medical form: TAB, Q4H, Center Dosing Weight 86.364, kg, PRN as needed for pain, Start date: 07/12/13 18:24:00, Duration: 30 day, Stop date: 08/11/13 18:23:00Not to exceed 400mg/day. (Same As: Ultram) acetaminophen-h 1 tab, Route: No Longer [facility] [place] ydrocodone 325 PO, Drug Form: Active 2012 Medical mg-5 mg oral TAB, Dosing Center tablet Weight 86.364, kg, Q4H, PRN Pain, Start date: 07/12/13 18:23:00, Duration: 30 day, Stop date: 08/11/13 18:22:00(Same as: [place] 325/5) Do not exceed 4gm/day of acetaminophen. Flexeril 10 mg, 1 tab, No Longer [facility] Route: PO, Drug Active 2012 Medical form: TAB, TID, Center Dosing Weight 86.364, kg, PRN Spasm, Start date: 07/12/13 18:23:00, Duration: 30 day, Stop date: 08/11/13 18:22:00(Same As: Flexeril) benzonatate 100 mg, 1 cap, No Longer [facility] Route: PO, Drug Active 2012 Medical form: CAP, TID, Center Dosing Weight 86.364, kg, PRN as needed for cough, Start date: 07/12/13 18:23:00, Duration: 30 day, Stop date: 08/11/13 18:22:00(Same As: Oleksandr Francis) "Do Not Crush" Saline Flush 5 ml, Route: No Longer [facility] 0.9% IVP, Drug Form: Active 2012 Medical INJ, Dosing Center Weight 86.364, kg, PRN, PRN Line Flush, Start date: 07/12/13 18:22:00, Duration: 30 day, Stop date: 08/11/13 18:21:00(Same as: BD Posiflush) ondansetron 4 mg, 2 mL, No Longer [facility] Route: IVP, Drug Active 2012 Medical form: INJ, Q8H, Center Dosing Weight 86.364, kg, PRN Nausea & Vomiting, Start date: 07/12/13 18:22:00, Duration: 30 day, Stop date: 08/11/13 18:21:00(Same as: Zofran) aspirin 81 mg 81 mg, 1 tab, Active [facility] tablet, enteric PO, Daily, 0 2012 Medical coated tab, Center Substitution Allowed, ECTAB Klor-Con M20 20 mEq, 1 tab, No Longer [facility] oral tablet, PO, Daily, 180 Active 2012 Medical extended tab, Center release Substitution Allowed, ERTAB furosemide 40 40 mg, 1 tab, No Longer [facility] mg oral tablet PO, Daily, 30 Active 2012 Medical tab, Center Substitution Allowed, TAB benzonatate 100 PO, TID, PRN, 1 Active [facility] mg oral capsule to 2 tabs, prn, 2012 Medical Substitution Center Allowed1 to 2 tabs metoprolol 50 mg, 1 tab, No Longer [facility] tartrate 50 mg PO, Daily, 180 Active 2012 Medical oral tablet tab, Center Substitution Allowed, TAB Reglan 10 mg, 2 mL, Inactive [facility] 07/12[facility] Route: IVP, Drug 2012 Medical form: INJ, ONCE, Center Dosing Weight 86.364, kg, Priority: STAT, Start date: 07/12/13 12:12:00, Stop date: 07/12/13 12:12:00(Same as: Reglan) Zofran 4 mg, Route: Inactive [facility] 07/12[facility] IVP, Drug form: 2012 Medical INJ, ONCE, Center Dosing Weight 86.364, kg, Priority: STAT, Start date: 07/12/13 10:52:00, Stop date: 07/12/13 10:52:00 morphine 4 mg, Route: Inactive [facility] 07/12[facility] Sulfate IVP, Drug form: 2012 Medical INJ, ONCE, Center Dosing Weight 86.364, kg, Priority: STAT, Start date: 07/12/13 10:51:00, Stop date: 07/12/13 10:51:00 Zofran 4 mg, 2 mL, Inactive [facility] 07/12[facility] Route: IVP, Drug 2012 Medical form: INJ, [...] Stop date: 07/12/13 11:05:00, Bolus DoseBolus Dose [place] 5/325 1 tab, Route: Inactive [facility] [...] Levemir 10 unit, 0.1 mL, Inactive [facility] 07/12[facility] Fei Route: SUB-Q, 2012 Medical Drug form: INJ, Center ONCE, Dosing Weight 86.364, kg, Start date: 07/12/13 4:20:00, Stop date: 07/12/13 4:20:00Same as Levemir "single patient use only" Omnipaque 100 mL, Route: Inactive [facility] Fei 350mg/ml IVP, Drug Form: 2012 Medical SOLN, Dosing Center Weight 86.364, kg, ONCALL, STAT, Start date: 07/12/13 4:18:00, Duration: 1 doses or times, Dose=2.2ml/kg, Max [id number] -- "To be infused by Radiology Staff ONLY"Dose=2.2ml/ kg, Max [id number] -- "To be infused by Radiology Staff [...] mg, 1 tab, PO No Longer [facility] Route: PO, Drug Active 2012 Medical form: TAB, Center Daily, Dosing Weight 90, kg, Start date: 04/03/13 9:00:00, Duration: 30 day, Stop date: 05/02/13 9:00:00 Lyrica 150 mg, 2 cap, PO No Longer [facility] Route: PO, Drug Active 2012 Medical form: CAP, BID, Center Dosing Weight 90, kg, Start date: 04/03/13 9:00:00, Duration: 30 day, Stop date: 05/02/13 17:00:00 Protonix 40 mg, 1 tab, PO No Longer [facility] Route: PO, Drug Active 2012 Medical form: ECTAB, Center BID, Dosing Weight 90, kg, Start date: 04/03/13 9:00:00, Duration: 30 day, Stop date: 05/02/13 17:00:00 metoclopramide 10 mg, 1 tab, PO No Longer [facility] 10 mg oral Route: PO, Drug Active 2012 Medical tablet form: TAB, TID, Center Dosing Weight 90, kg, Start date: 04/03/13 9:00:00, Duration: 30 day, Stop date: 05/02/13 17:00:00 meloxicam 7.5 mg, 1 tab, PO No Longer [facility] Route: PO, Drug Active 2012 Medical form: TAB, BID, Center Dosing Weight 90, kg, Priority: Routine, Start date: 04/03/13 9:00:00, Duration: 30 day, Stop date: 05/02/13 17:00:00 lisinopril 20 mg, Route: PO No Longer [facility] PO, Drug form: Active 2012 Medical TAB, [...] unit, 0.06 mL, SUB-Q No Longer [facility] Route: SUB-Q, Active 2012 Medical Drug form: [...] mg, 1 cap, PO No Longer [facility] Route: PO, Drug Active 2012 Medical form: DRC, Center Bedtime, Dosing Weight 90, kg, Start date: 04/02/13 21:00:00, Duration: 30 day, Stop date: 05/01/13 21:00:00 magnesium oxide 400 mg, 1 tab, PO No Longer [facility] Route: PO, Drug Active 2012 Medical form: TAB, Center Daily, Dosing Weight 90, kg, Priority: NOW, Start date: 04/02/13 20:45:00, Duration: 30 day, Stop date: 05/02/13 9:00:00 Levemir 12 unit, 0.12 SUB-Q No Longer [facility] mL, Route: Active 2012 Medical SUB-Q, Drug Center form: INJ, BID, Dosing Weight 90, kg, Start date: 04/02/13 20:45:00, Duration: 30 day, Stop date: 05/02/13 17:00:00 hydrALAZINE 10 mg, 0.5 mL, IVP No Longer [facility] Route: IVP, Drug Active 2012 Medical form: INJ, Q4H, Center Dosing Weight 90, kg, PRN Hypertension, Start date: 04/02/13 20:37:00, Duration: 30 day, Stop date: 05/02/13 20:36:00 lisinopril 20 mg, 1 tab, PO No Longer [facility] Route: PO, Drug Active 2012 Medical form: TAB, Center Daily, Dosing Weight 90, kg, Start date: 04/02/13 20:30:00, Duration: 30 day, Stop date: 05/02/13 9:00:00 metoprolol 12.5 mg, 1 ea, PO No Longer [facility] tartrate Route: PO, Drug Active 2012 Medical form: TAB, BID, Center Dosing Weight 90, kg, Start date: 04/02/13 20:30:00, Duration: 30 day, Stop date: 05/02/13 17:00:00 insulin aspart 8 unit, 0.08 mL, SUB-Q No Longer [facility] Route: SUB-Q, Active 2012 Medical Drug form: SOLN, Center TID-Before Meals, Dosing Weight 90, kg, PRN Blood Glucose Results, Start date: 04/02/13 20:30:00, Duration: 30 day, Stop date: 05/02/13 20:29:00 glucagon 1 mg, Route: IM, IM No Longer [facility] Drug form: Active 2012 Medical PDR/INJ, PRN, Center Dosing Weight 90, kg, PRN Blood Glucose Results, Start date: 04/02/13 20:30:00, Duration: 30 day, Stop date: 05/02/13 20:29:00 Dextrose 50% 25 gm, 50 mL, IVP No Longer [facility] Syringe Route: IVP, Drug Active 2012 Medical Form: INJ, Center Dosing Weight 90, kg, PRN, PRN Blood Glucose Results, Start date: 04/02/13 20:30:00, Duration: 30 day, Stop date: 05/02/13 20:29:00 Insulin regular 8 unit, Route: SUB-Q No Longer [facility] SUB-Q, Active 2012 Medical TID-Before Center Meals, Dosing Weight 90, kg, PRN Blood Glucose Results, Start date: 04/02/13 20:29:00, Duration: 30 day, Stop date: 05/02/13 20:28:00 glucagon 1 mg, Route: IM, IM No Longer [facility] PRN, Dosing Active 2012 Medical Weight 90, kg, Center PRN Blood Glucose Results, Start date: 04/02/13 20:29:00, Duration: 30 day, Stop date: 05/02/13 20:28:00 Dextrose 50% 50 mL, Route: IVP No Longer [facility] Syringe IVP, Dosing Active 2012 Medical Weight 90, kg, Center PRN, PRN Blood Glucose Results, Start date: 04/02/13 20:29:00, Duration: 30 day, Stop date: 05/02/13 20:28:00 Zofran 4 mg, 2 mL, IV No Longer [facility] Route: IV, Drug Active 2012 Medical form: INJ, Q8H, Center Dosing Weight 90, kg, PRN Nausea, Start date: 04/02/13 20:29:00, Duration: 30 day, Stop date: 05/02/13 20:28:00 Maalox Advanced 30 mL, Route: PO No Longer [facility] Regular PO, Drug Form: Active 2012 Medical Strength SUSP SUSP, Dosing Center Weight 90, kg, QID, PRN Indigestion, Start date: 04/02/13 20:28:00, Duration: 30 day, Stop date: 05/02/13 20:27:00 Flexeril 10 mg, 1 tab, PO No Longer [facility] Route: PO, Drug Active 2012 Medical form: TAB, TID, Center Dosing Weight 90, kg, PRN Spasm, Start date: 04/02/13 20:22:00, Duration: 30 day, Stop date: 05/02/13 20:21:00 acetaminophen-h 1 tab, Route: PO No Longer [facility] ydrocodone 325 PO, Drug Form: Active 2012 Medical mg-5 mg oral TAB, Dosing Center tablet Weight 90, kg, Q4H, PRN Pain, Start date: 04/02/13 20:22:00, Duration: 30 day, Stop date: 05/02/13 20:21:00 Phenergan 12.5 mg, 0.5 mL, IVPB No Longer [facility] Route: IVPB, Active 2012 Medical Drug form: INJ, Center ONCE, Dosing Weight 90, kg, Start date: 04/02/13 20:11:00, Stop date: 04/02/13 20:11:00 morphine 4 mg, 1 mL, IVP No Longer Mitch [facility] Sulfate Route: IVP, Drug Active 2012 Medical form: INJ, ONCE, Center Dosing Weight 90, kg, Start date: 04/02/13 20:10:00, Stop date: 04/02/13 20:10:00 Phenergan 12.5 mg, 0.5 mL, IVPB No Longer Zhang [facility] Route: IVPB, Active 2012 Medical Drug form: INJ, Center ONCE, Dosing Weight 90, kg, Priority: STAT, Start date: 04/02/13 17:11:00, Stop date: 04/02/13 17:11:00 Zofran 4 mg, 2 mL, IVP No Longer Zhang [facility] Route: IVP, Drug Active 2012 Medical form: INJ, ONCE, Center Dosing Weight 90, kg, Priority: STAT, Start date: 04/02/13 16:52:00, Stop date: 04/02/13 16:52:00 nitroglycerin 0.4 mg, 1 tab, SL No Longer [facility] Route: SL, Drug Active 2012 Medical form: TAB, Center Q5Min, Dosing Weight 90, kg, PRN Chest Pain, Priority: STAT, Start date: 04/02/13 16:31:00, Duration: 3 doses or times, Stop date: Limited # of times aspirin 325 mg, 1 tab, PO No Longer [facility] Route: PO, Drug Active 2012 Medical form: ECTAB, Center ONCE, Dosing Weight 90, kg, Priority: STAT, Start date: 04/02/13 16:31:00, Stop date: 04/02/13 16:31:00 morphine 4 mg, 1 mL, IVP No Longer [facility] [facility] Sulfate Route: IVP, Drug Active 2012 Medical form: INJ, ONCE, Center Dosing Weight 90, kg, Start date: 04/02/13 16:30:00, Stop date: 04/02/13 16:30:00 erythromycin 1 cap, PO, Q12H, PO Active [place] 250 mg oral 14 cap, 2012 Medical enteric coated Substitution Center tablet Allowed, ECTAB GI cocktail 30 ml, Route: PO No Longer [place] [facility] PO, Drug Form: Active 2012 Medical SUSP, [...] gm, 50 mL, IVPB No Longer [place] [facility] sulfate Route: IVPB, Active 2012 Medical Drug form: INJ, Center Q2H, Dosing Weight 90, kg, Total Dose=4 gm, Start date: 03/08/13 12:00:00, Duration: 2 doses or times, Stop date: 03/08/13 14:00:00, For Mg=1.5 - 1.7 mg/dLFor Mg=1.5 - 1.7 mg/dL insulin aspart 5 unit, 0.05 mL, SUB-Q No Longer [place] [facility] Route: SUB-Q, Active 2012 Medical Drug form: SOLN, [place] ONCE, Dosing Weight 90, kg, Start date: 03/08/13 3:17:00, Stop date: 03/08/13 3:17:00 Zocor 40 mg, 1 tab, PO No Longer [place] [facility] Route: PO, Drug Active 2012 Medical form: TAB, Center Bedtime, Dosing Weight 90, kg, Start date: 03/07/13 21:00:00, Duration: 30 day, Stop date: 04/05/13 21:00:00 Cymbalta 120 mg, 2 cap, PO No Longer [place] [facility] Route: PO, Drug 2012 Medical form: DRC, [...] unit, 0.1 mL, SUB-Q No Longer [place] [facility] Route: SUB-Q, Active 2012 Medical Drug form: SOLN, Center ONCE, Dosing Weight 90, kg, Start date: 03/07/13 19:16:00, Stop date: 03/07/13 19:16:00 Lyrica 150 mg, 2 cap, PO No Longer [place] [facility] Route: PO, Drug Active 2012 Medical form: CAP, BID, Center Dosing Weight 90, kg, Start date: 03/07/13 17:00:00, Duration: 30 day, Stop date: 04/06/13 9:00:00 Protonix 40 mg, 1 tab, PO No Longer [place] [facility] Route: PO, Drug Active 2012 Medical form: ECTAB, Center BID, Dosing Weight 90, kg, Start date: 03/07/13 17:00:00, Duration: 30 day, Stop date: 04/06/13 9:00:00 meloxicam 7.5 mg, 1 tab, PO No Longer [place] [facility] Route: PO, Drug Active 2012 Medical form: TAB, Center BID-Meals, Dosing Weight 90, kg, Start date: 03/07/13 17:00:00, Duration: 30 day, Stop date: 04/06/13 8:00:00 Flexeril 10 mg, 1 tab, PO No Longer [place] [facility] Route: PO, Drug Active 2012 Medical form: TAB, BID, Center Dosing Weight 90, kg, Start date: 03/07/13 17:00:00, Duration: 30 day, Stop date: 04/06/13 9:00:00 NovoLog FlexPen 6 unit, 0.06 mL, SUB-Q No Longer [place] [facility] Route: SUB-Q, Active 2012 Medical Drug form: [...] mg, 1 tab, PO No Longer [place] [facility] Route: PO, Drug Active 2012 Medical form: TAB, Center Daily, Dosing Weight 90, kg, Start date: 03/07/13 13:30:00, Duration: 30 day, Stop date: 04/06/13 9:00:00 magnesium oxide 400 mg, 1 tab, PO No Longer [place] [facility] Route: PO, Drug Active 2012 Medical form: TAB, Center Daily, Dosing Weight 90, kg, Start date: 03/07/13 13:30:00, Duration: 30 day, Stop date: 04/06/13 9:00:00 lisinopril 20 mg, 1 tab, PO No Longer [place] [facility] Route: PO, Drug Active 2012 Medical form: TAB, Center Daily, Dosing Weight 90, kg, Start date: 03/07/13 13:30:00, Duration: 30 day, Stop date: 04/06/13 9:00:00 Reglan 5 mg, 1 tab, PO No Longer [place] [facility] Route: PO, Drug Active 2012 Medical form: TAB, TID, Center Dosing Weight 90, kg, Start date: 03/07/13 13:00:00, Duration: 30 day, Stop date: 04/06/13 9:00:00 ferrous sulfate 325 mg, 1 tab, PO No Longer [place] [facility] Route: PO, Drug Active 2012 Medical form: ECTAB, Center TID, Dosing Weight 90, kg, Start date: 03/07/13 13:00:00, Duration: 30 day, Stop date: 04/06/13 9:00:00 clonazepam 0.5 mg, 1 tab, PO No Longer [place] [facility] Route: PO, Drug Active 2012 Medical form: TAB, TID, Center Dosing Weight 90, kg, Start date: 03/07/13 13:00:00, Duration: 30 day, Stop date: 04/06/13 9:00:00 NovoLog 6 unit, SUB-Q, SUB-Q No Longer [place] TID-Before Active 2012 Medical Meals, Center Substitution Allowed Levemir 12 unit, SUB-Q, SUB-Q Active [place] BID, 2012 Medical Substitution Center Allowed NS 1,000 mL 1,000 mL, Rate: IV No Longer [place] 125 ml/hr, Active 2012 Medical Infuse over: 8 Center hr, Route: IV, Dosing Weight 90 kg, Total Volume: 1,000, Start date: 03/07/13 12:19:00, Duration: 30 day, Stop date: 04/06/13 12:18:00 insulin aspart 2 unit, 0.02 mL, SUB-Q No Longer [place] Route: SUB-Q, Active 2012 Medical Drug form: [facility] TID-Before Meals, Dosing Weight 90, kg, PRN Blood Glucose Results, Start date: 03/07/13 11:55:00, Duration: 30 day, Stop date: 04/06/13 11:54:00 glucagon 1 mg, Route: IM, IM No Longer [place] Drug form: Active 2012 Medical PDR/INJ, PRN, Center Dosing Weight 90, kg, PRN Blood Glucose Results, Start date: 03/07/13 11:55:00, Duration: 30 day, Stop date: 04/06/13 11:54:00 Dextrose 50% 12.5 gm, 25 mL, IVP No Longer [place] Syringe Route: IVP, Drug Active 2012 Medical Form: INJ, Center Dosing Weight 90, kg, PRN, PRN Blood Glucose Results, Start date: 03/07/13 11:55:00, Duration: 30 day, Stop date: 04/06/13 11:54:00 Phenergan 12.5 mg, 0.5 mL, IVPB No Longer [place] Route: IVPB, Active 2012 Medical Drug form: INJ, Center Q4H, Dosing Weight 90, kg, PRN Nausea & Vomiting, Start date: 03/07/13 11:53:00, Duration: 30 day, Stop date: 04/06/13 11:52:00 albuterol 2.49 mg, 3 mL, NEB No Longer [place] 0.083% Route: NEB, Drug Active 2012 Medical inhalation form: SOLN, Center solution RQ4H, Dosing Weight 90, kg, PRN as needed for wheezing, Start date: 03/07/13 11:53:00, Duration: 30 day, Stop date: 04/06/13 11:52:00 Zofran 4 mg, 2 mL, IVP No Longer [place] [facility] Route: IVP, Drug Active 2012 Medical form: INJ, Q4H, Center Dosing Weight 90, kg, PRN Nausea, Start date: 03/07/13 11:53:00, Duration: 30 day, Stop date: 04/06/13 11:52:00 acetaminophen-h 1 tab, Route: PO No Longer [place] [facility] ydrocodone 325 PO, Drug Form: Active 2013 Medical mg-10 mg oral TAB, Dosing Center tablet Weight 90, kg, Q4H, PRN Pain Score 4-6, Start date: 03/07/13 11:51:00, Duration: 30 day, Stop date: 04/06/13 11:50:00 acetaminophen-h 1 tab, Route: PO No Longer [place] [facility] ydrocodone 325 PO, Drug Form: Active 2013 Medical mg-5 mg oral TAB, Dosing Center tablet Weight 90, kg, Q4H, PRN Pain Score 1-3, Start date: 03/07/13 11:51:00, Duration: 30 day, Stop date: 04/06/13 11:50:00 acetaminophen 650 mg, 2 tab, PO No Longer [place] [facility] Route: PO, Drug Active 2012 Medical form: TAB, Q4H, Center Dosing Weight 90, kg, PRN Pain 1-3/Temp > 100.4 F, Start date: 03/07/13 11:51:00, Duration: 30 day, Stop date: 04/06/13 11:50:00 morphine 2 mg, 1 mL, IVP No Longer [place] 03/07[facility] Sulfate Route: IVP, Drug Active 2012 Medical form: INJ, Q4H, Center Dosing Weight 90, kg, PRN Pain Score 7-10, Start date: 03/07/13 11:51:00, Duration: 30 day, Stop date: 04/06/13 11:50:00 docusate 100 mg, 1 cap, PO No Longer [place] 07/02[facility] Route: PO, Drug Active 2012 Medical form: CAP, BID, Center Dosing Weight 90, kg, PRN Constipation, Start date: 03/07/13 11:51:00, Duration: 30 day, Stop date: 04/06/13 11:50:00 Levemir 12 unit, 0.12 SUB-Q No Longer [place] [facility] mL, Route: Active 2012 Medical SUB-Q, Drug Center form: INJ, ONCE, Dosing Weight 90, kg, Start date: 03/07/13 6:10:00, Stop date: 03/07/13 6:10:00 lidocaine-epi 1 ml, Route: SUB-Q No Longer [place] [facility] [id number] SUB-Q, Drug Active 2012 Medical Form: SOLN, Center Dosing Weight 90, kg, ONCE, STAT, Start date: 03/07/13 5:18:00, Stop date: 03/07/13 5:18:00 Insulin regular 99 mL, Rate: IVPB No Longer [place] [facility] 100 unit + Start Insulin Active 2012 [...] gm, 25 mL, IVP No Longer [place] [facility] Syringe Route: IVP, Drug Active 2012 Medical Form: INJ, Center Dosing Weight 90, kg, PRN, PRN Blood Glucose Results, Start date: 03/07/13 5:13:00, Duration: 30 day, Stop date: 04/06/13 5:12:00 NS (Bolus) IV 1,000 mL, Rate: IV No Longer [place] [facility] 1,000 mL 1,000 ml/hr, Active 2012 Medical Infuse over: 1 Center hr, Route: IV, Dosing Weight 90 kg, Total Volume: 1,000, Priority: STAT, Start date: 03/07/13 2:36:00, Duration: 1 doses or times, Stop date: 03/07/13 3:35:00, Bolus DoseBolus Dose magnesium 2 gm, 50 mL, IVPB No Longer [place] sulfate Route: IVPB, 2012 Medical Drug form: INJ, Center ONCE, Dosing Weight 90, kg, Start date: 03/07/13 2:35:00, Stop date: 03/07/13 2:35:00 Insulin regular 10 unit, 0.1 mL, SUB-Q No Longer [place] Route: SUB-Q, 2012 Medical Drug form: SOLN, Center ONCE, Dosing Weight 90, kg, Priority: STAT, Start date: 03/07/13 2:16:00, Stop date: 03/07/13 2:16:00 Reglan 10 mg, 2 mL, IVP No Longer [place] Route: IVP, Drug 2012 Medical form: INJ, ONCE, Center Dosing Weight 90, kg, Priority: STAT, Start date: 03/07/13 2:16:00, Stop date: 03/07/13 2:16:00 NS 1,000 mL 1,000 mL, Rate: IV No Longer [place] 150 ml/hr, 2012 Medical Infuse over: 6.7 Center hr, Route: IV, Dosing Weight 90 kg, Total Volume: 1,000, Start date: 03/07/13 2:15:00, Duration: 30 day, Stop date: 04/06/13 2:14:00 droperidol 1.25 mg, Route: IVP No Longer [place] [facility] IVP, ONCE, 2012 Medical Dosing Weight Center 90, kg, PRN Nausea & Vomiting, Start date: 03/07/13 0:48:00 D5W 1/2NS 1,000 1,000 mL, Rate: IV No Longer [place] mL 125 ml/hr, 2012 Medical Infuse over: 8 Center hr, Route: IV, Dosing Weight 90 kg, Total Volume: 1,000, Start date: 03/07/13 0:43:00, Duration: 30 day, Stop date: 04/06/13 0:42:00 Insulin regular 4 unit, 0.04 mL, SUB-Q No Longer [place] Route: SUB-Q, Active 2012 Medical Drug form: SOLN, Center Sliding Scale, Dosing Weight 90, kg, PRN Blood Glucose Results, Start date: 03/07/13 0:01:00, Duration: 30 day, Stop date: 04/06/13 0:00:00 glucagon 1 mg, Route: IM, IM No Longer [place] Drug form: Active 2012 Medical PDR/INJ, PRN, Center Dosing Weight 90, kg, PRN Blood Glucose Results, Start date: 03/07/13 0:01:00, Duration: 30 day, Stop date: 04/06/13 0:00:00 Dextrose 50% 25 gm, 50 mL, IVP No Longer [place] Syringe Route: IVP, Drug Active 2012 Medical Form: INJ, Center Dosing Weight 90, kg, PRN, PRN Blood Glucose Results, Start date: 03/07/13 0:01:00, Duration: 30 day, Stop date: 04/06/13 0:00:00 NS 1,000 mL 1,000 mL, Rate: IV No Longer [place] 125 ml/hr, 2012 Medical Infuse over: 8 Center hr, Route: IV, Dosing Weight 90 kg, Total Volume: 1,000, Start date: 03/06/13 23:21:00, Duration: 30 day, Stop date: 04/05/13 23:20:00 NS (Bolus) IV 1,000 mL, Rate: IV No Longer [place] 1,000 mL 1,000 ml/hr, 2012 Medical Infuse over: 1 Center hr, Route: IV, Dosing Weight 90 kg, Total Volume: 1,000, Priority: STAT, Start date: 03/06/13 23:21:00, Duration: 1 doses or times, Stop date: 03/07/13 0:20:00, Bolus DoseBolus Dose [place] 5/325 1 tab, PO, Q6H, PO No Longer [place] oral tablet PRN, 30 tab, Active 2012 Medical Substitution Center Allowed, Maintenance ferrous sulfate 325 mg, 1 tab, PO Active [place] [facility] 325 mg oral PO, TID, 30 tab, 2012 Medical enteric coated Substitution Center tablet Allowed, ECTAB acetaminophen-h 1 tab, PO, Q4H, PO Active [facility] ydrocodone 500 PRN, for pain, 2012 Medical mg-7.5 mg oral Substitution Center tablet Allowed, Maintenance, TAB meloxicam 7.5 7.5 mg, 1 tab, PO Active [place] 03/07[facility] mg oral tablet PO, BID, WITH 2012 Medical FOOD, 30 tab, Center Substitution Allowed, TABWITH FOOD Zocor 40 mg 40 mg, 1 tab, PO Active [place] 03/07[facility] oral tablet PO, Bedtime, 30 2012 Medical tab, Center Substitution Allowed, Maintenance ProAir HFA 90 Substitution Active [facility] mcg/inh Allowed, 2012 Medical inhalation Maintenance Center aerosol with adapter Flexeril 10 mg 10 mg, 1 tab, PO Active [place] [facility] oral tablet PO, TID, PRN, 30 2012 Medical tab, for spasm, Center Substitution Allowed, TAB Protonix 40 mg 40 mg, 1 tab, PO Active [place] [facility] oral enteric PO, BID, 30 tab, 2012 Medical coated tablet Substitution Center Allowed, ECTAB Lyrica 150 mg 150 mg, 1 cap, PO Active [place] [facility] oral capsule PO, BID, 90 cap, 2012 [facility] Substitution [place] Allowed, CAP Flagyl 500 mg 500 mg, 1 tab, PO No Longer [facility] oral tablet PO, Q6H, 30 tab, Active 2012 [facility] Substitution [place] Allowed metoclopramide 10 mg, 1 tab, PO Active [place] [facility] 10 mg oral PO, TID, 56 tab, [...] mg, 1 mL, IVP No Longer [place] [facility] Sulfate Route: IVP, Drug Active 2012 Medical form: INJ, ONCE, Center Dosing Weight 90, kg, Start date: 03/06/13 21:27:00, Stop date: 03/06/13 21:27:00 Phenergan 12.5 mg, 0.5 mL, IVPB No Longer [place] [facility] Route: IVPB, Active 2012 Medical Drug form: INJ, Center ONCE, Dosing Weight 90, kg, Priority: STAT, Start date: 03/06/13 21:26:00, Stop date: 03/06/13 21:26:00 ergocalciferol 50,000 IntlUnit, PO No Longer [place] [facility] 1 cap, Route: Active 2012 Medical PO, Drug form: Center CAP, qWeek, Dosing Weight 100, kg, Start date: 12/07/12 9:00:00, Duration: 30 day, Stop date: 01/04/13 9:00:00 erythromycin 250 mg, 1 tab, PO Active [facility] stearate 250 mg PO, Q6H, 56 tab, 2012 Medical oral tablet Substitution Center Allowed, TAB Protonix 40 mg 40 mg, 1 tab, PO Active [facility] oral enteric PO, Daily, 2012 Medical coated tablet tab, Center Substitution Allowed, ECTAB pravastatin 80 80 mg, 1 tab, PO Active [facility] mg oral tablet PO, Daily, 30 2012 Medical tab, Center Substitution Allowed, TAB insulin detemir 14 unit, 0.14 SUB-Q Active [facility] 100 units/mL mL, SUB-Q, 2012 Medical subcutaneous Bedtime, 100 mL, Center solution Substitution Allowed, INJ insulin detemir 16 unit, 0.16 SUB-Q Active [facility] 100 units/mL mL, SUB-Q, 2012 Medical subcutaneous Daily, 100 mL, Center solution Substitution Allowed, INJ Protonix 40 mg, Route: IVP No Longer [place] [facility] IVP, Drug form: Active 2012 Medical INJ, Daily, Center Dosing Weight 100, kg, Priority: NOW, Start date: 12/06/12 16:52:00, Duration: 30 day, Stop date: 01/05/13 9:00:00 insulin detemir 16 unit, 0.16 SUB-Q No Longer [place] mL, Route: Active 2012 Medical SUB-Q, Drug Center form: INJ, Daily, Dosing Weight 100, kg, Start date: 12/06/12 9:00:00, Stop date: 01/04/13 9:00:00 [place] 7.5/325 1 tab, Route: PO No Longer [place] oral tablet PO, Drug Form: Active 2012 Medical TAB, Dosing Center Weight 100, kg, ONCE, Start date: 12/06/12 0:19:00, Stop date: 12/06/12 0:19:00 Pravachol 80 mg, 4 tab, PO No Longer [place] [facility] Route: PO, Drug Active 2012 Medical form: TAB, Center Bedtime, Start date: 12/05/12 21:00:00, Duration: 30 day, Stop date: 01/03/13 21:00:00 insulin detemir 14 unit, 0.14 SUB-Q No Longer [place] [facility] mL, Route: Active 2012 Medical SUB-Q, Drug Center form: INJ, Bedtime, Dosing Weight 100, kg, Start date: 12/05/12 21:00:00, Stop date: 01/03/13 21:00:00 morphine 4 mg, 1 mL, IVP No Longer [place] [facility] Sulfate Route: IVP, Drug Active 2012 Medical form: INJ, ONCE, Center Dosing Weight 100, kg, Start date: 12/05/12 16:51:00, Stop date: 12/05/12 16:51:00 erythromycin + 250 mg, Route: IVPB No Longer [place] [facility] Sodium Chloride IVPB, Q8H, Active 2012 Medical 0.9% IV 100 mL Dosing Weight Center 100, kg, Start date: 12/05/12 16:00:00, Duration: 30 day, Stop date: 01/04/13 8:00:00 potassium 20 mEq, 100 mL, IVPB No Longer [place] [facility] chloride Route: IVPB, Active 2012 Medical Q2H, [...] mg, 1 tab, PO No Longer [place] Route: PO, Drug Active 2012 Medical form: ECTAB, Center Daily, Dosing Weight 100, kg, Start date: 12/04/12 9:00:00, Duration: 30 day, Stop date: 01/02/13 9:00:00 potassium 40 mEq, Route: IV No Longer [place] chloride IV, ONCE, Dosing Active 2012 Medical Weight 100, kg, Center Start date: 12/04/12 8:20:00, Stop date: 12/04/12 8:20:00 Phenergan 25 mg, 1 supp, VT No Longer [place] Route: VT, Drug Active 2012 Medical form: SUPP, Q4H, Center Dosing Weight 100, kg, PRN Nausea & Vomiting, Start date: 12/04/12 7:58:00, Duration: 30 day, Stop date: 01/03/13 7:57:00 Dextrose 50% 25 gm, 50 mL, IVP No Longer [place] [facility] Syringe Route: IVP, Drug Active 2012 Medical Form: INJ, Center Dosing Weight 100, kg, PRN, PRN Blood Glucose Results, Start date: 12/04/12 7:48:00, Duration: 30 day, Stop date: 01/03/13 7:47:00 glucagon 1 mg, Route: IM, IM No Longer [place] Drug form: Active 2012 Medical PDR/INJ, PRN, Center Dosing Weight 100, kg, PRN Blood Glucose Results, Start date: 12/04/12 7:48:00, Duration: 30 day, Stop date: 01/03/13 7:47:00 insulin aspart 4 unit, 0.04 mL, SUB-Q No Longer [place] Route: SUB-Q, Active 2012 Medical Drug form: SOLN, Center Bedtime, Dosing Weight 100, kg, PRN Blood Glucose Results, Start date: 12/04/12 7:48:00, Duration: 30 day, Stop date: 01/03/13 7:47:00 Protonix 40 mg, Route: IV No Longer [place] IV, Drug form: Active 2012 Medical INJ, ONCE, Center Dosing Weight 100, kg, Start date: 12/04/12 3:12:00, Stop date: 12/04/12 3:12:00 potassium 20 mEq, 100 mL, IVPB No Longer [place] [facility] chloride Route: IVPB, Active 2012 Medical Q2H, Start date: [place] 12/03/12 8:00:00, Stop date: 12/03/12 11:00:00 potassium 40 mEq, Route: IV No Longer [place] [facility] chloride IV, ONCE, Dosing Active 2012 Medical Weight 100, kg, Center Start date: 12/03/12 7:02:00, Stop date: 12/03/12 7:02:00 NS 1,000 mL 1,000 mL, Rate: IV No Longer [place] [facility] 125 ml/hr, Active 2012 Medical Infuse over: 8 Center hr, Route: IV, kg, Total Volume: 1,000, Start date: 12/02/12 16:54:00, Duration: 30 day, Stop date: 01/01/13 16:53:00 NS (Bolus) IV 1,000 mL, Rate: IV No Longer [place] 1,000 mL 1,000 ml/hr, Active 2012 Medical Infuse over: 1 Center hr, Route: IV, kg, Total Volume: 1,000, Priority: STAT, Start date: 12/02/12 13:12:00, Duration: 1 doses or times, Stop date: 12/02/12 14:11:00, Bolus DoseBolus Dose NS (Bolus) IV 1,000 mL, Rate: IV No Longer [place] [facility] 1,000 mL 1,000 ml/hr, Active 2012 Medical Infuse over: 1 Center hr, Route: IV, kg, Total Volume: 1,000, Priority: STAT, Start date: 12/02/12 12:10:00, Duration: 1 doses or times, Stop date: 12/02/12 13:09:00, Bolus DoseBolus Dose insulin detemir 20 unit, 0.2 mL, SUB-Q No Longer [place] Route: SUB-Q, Active 2012 Medical Drug form: INJ, Center BID, Dosing Weight 100, kg, Start date: 12/02/12 9:00:00, Duration: 30 day, Stop date: 12/31/12 21:00:00 calcium 1,000 mg, 10 mL, IVPB No Longer [place] chloride + Route: IVPB, Active 2012 Medical Sodium Chloride ONCE, Start Center 0.9% IV 100 mL date: 12/02/12 5:08:00, Stop date: 12/02/12 5:08:00 ceftriaxone 1 gm, Route: IVPB No Longer [place] [facility] IVPB, Drug form: Active 2012 Medical PDR/INJ, Center [id number], Dosing Weight 100, kg, Start date: 12/02/12 5:00:00, Duration: 30 day, Stop date: 12/31/12 5:00:00 calcium 1,000 mg, Route: IVPB No Longer [place] [facility] gluconate IVPB, Drug form: Active 2012 Medical INJ, ONCE, Center Dosing Weight 100, kg, Start date: 12/02/12 5:00:00, Stop date: 12/02/12 5:00:00 Dextrose 50% 25 mL, Route: IVP No Longer [place] [facility] Syringe IVP, Dosing Active 2012 Medical Weight 100, kg, Center PRN, PRN Blood Glucose Results, Start date: 12/02/12 4:51:00, Duration: 30 day, Stop date: 01/01/13 4:50:00 Insulin regular 100 mL, Rate: IVPB No Longer [place] [facility] 100 unit + Start Insulin Active 2012 [...] 4 mg, Route: IVP No Longer [place] [facility] IVP, Drug form: Active 2012 Medical INJ, ONCE, Center Dosing Weight 100, kg, Priority: STAT, Start date: 12/02/12 4:47:00, Stop date: 12/02/12 4:47:00 normal saline 1,000 mL, Rate: IV No Longer [place] 0.9% IV 1,000 1,000 ml/hr, Active 2012 Medical mL Infuse over: 1 Center hr, Route: IV, kg, Total Volume: 1,000, Start date: 12/02/12 3:19:00, Duration: 1 doses or times, Stop date: 12/02/12 4:18:00 Insulin regular 6 unit, 0.06 mL, IV No Longer [place] [facility] Route: IV, Drug Active 2012 Medical form: [place] MARRUFO ONCE, Dosing Weight 100, kg, Priority: STAT, Start date: 12/02/12 3:19:00, Stop date: 12/02/12 3:19:00 insulin aspart 3 unit, 0.03 mL, SUB-Q No Longer [place] [facility] Route: SUB-Q, Active 2012 Medical Drug form: SOLN, [place] Bedtime, Dosing Weight 100, kg, PRN Blood [...] Route: SUB-Q, Active 2012 [facility] [place] Bedtime, Dosing Weight 100, kg, PRN Blood Glucose Results, Start date: 12/01/12 13:08:00, Duration: 30 day, Stop date: 12/31/12 13:07:00 insulin aspart 4 unit, 0.04 mL, SUB-Q No Longer [place] Route: SUB-Q, Active 2012 Medical Drug form: [facility], [place] TID-Before Meals, Dosing Weight 100, kg, PRN [...] unit, 0.01 mL, SUB-Q No Longer [place] 11[facility]30[facility] Fe[facility] Route: SUB-Q, Active 2012 Medical Drug form: SOLN, Center Sliding Scale, Dosing Weight 100, kg, PRN Blood Glucose Results, Start date: 11/30/12 18:36:00, Duration: 30 day, Stop date: 12/30/12 18:35:00 insulin detemir 16 unit, 0.16 SUB-Q No Longer [place] [facility] Fe[facility] mL, Route: Active 2012 Medical SUB-Q, Drug Center form: INJ, Q12H, Dosing Weight 100, kg, Start date: 11/30/12 14:00:00, Duration: 30 day, Stop date: 12/30/12 9:00:00 Zofran 4 mg, 2 mL, IV No Longer [place] Route: IV, Drug Active 2012 Medical form: INJ, Q6H, Center Dosing Weight 100, kg, PRN Nausea, Start date: 11/30/12 13:32:00, Duration: 30 day, Stop date: 12/30/12 13:31:00 insulin aspart 10 unit, 0.1 mL, SUB-Q No Longer [place] [facility] Route: SUB-Q, Active 2012 Medical Drug form: SOLN, Center TID-Before Meals, Dosing Weight 100, kg, PRN Blood Glucose Results, Start date: 11/30/12 13:26:00, Duration: 30 day, Stop date: 12/30/12 13:25:00 Zofran 4 mg, 2 mL, IV No Longer [place] Route: IV, Drug Active 2012 Medical form: INJ, Q8H, Center Dosing Weight 100, kg, PRN Nausea, Start date: 11/30/12 11:58:00, Duration: 30 day, Stop date: 12/30/12 11:57:00 Zofran 4 mg, 2 mL, IVP No Longer [place] Route: IVP, Drug Active 2012 Medical form: INJ, ONCE, Center Dosing Weight 100, kg, Priority: NOW, Start date: 11/30/12 11:57:00, Stop date: 11/30/12 11:57:00 potassium 2 pkt, Route: PO No Longer [facility] [place] phosphate-sodiu PO, Drug Form: Active 2012 Medical m phosphate 250 PDR/REC, ONCE, Center mg-278 mg-164 Start date: mg oral powder 11/30/12 10:00:00, Stop date: 11/30/12 10:00:00 Dextrose 5% 1,000 mL, Rate: IV No Longer [place] with 0.45% NaCl 150 ml/hr, Active 2012 [...] unit, 0.1 mL, SUB-Q No Longer [place] [facility] Route: SUB-Q, Active 2012 Medical Drug form: SOLN, Center TID-Before Meals, Dosing Weight 100, kg, PRN Blood Glucose Results, Start date: 11/30/12 7:57:00, Duration: 30 day, Stop date: 12/30/12 7:56:00 glucagon 1 mg, Route: IM, IM No Longer [place] [facility] Drug form: Active 2012 Medical PDR/INJ, PRN, Center Dosing Weight 100, kg, PRN Blood Glucose Results, Start date: 11/30/12 7:57:00, Duration: 30 day, Stop date: 12/30/12 7:56:00 Dextrose 50% 25 gm, 50 mL, IVP No Longer [facility] Syringe Route: IVP, Drug Active 2012 Medical [...] 5,000 unit, 1 SUB-Q No Longer [facility] units/mL mL, Route: Active 2012 Medical injectable SUB-Q, Drug Center solution form: INJ, Q8H, Dosing Weight 100, kg, Start date: 11/30/12 0:00:00, Duration: 30 day, Stop date: 12/29/12 16:00:00 hydrALAZINE 10 mg, 0.5 mL, IV No Longer [facility] Route: IV, Drug Active 2012 Medical form: INJ, Q4H, Center Dosing Weight 100, kg, PRN Hypertension, Start date: 11/29/12 22:56:00, Duration: 30 day, Stop date: 12/29/12 22:55:00 simvastatin 40 mg, 1 tab, PO No Longer [facility] Route: PO, Drug Active 2012 Medical form: TAB, Center Bedtime, Dosing Weight 101.364, kg, Start date: 11/29/12 21:00:00, Duration: 30 day, Stop date: 12/28/12 21:00:00 Cymbalta 60 mg, 1 cap, PO No Longer [place] Route: PO, Drug Active 2012 Medical form: DRC, Center Bedtime, Dosing Weight 101.364, kg, Start date: 11/29/12 21:00:00, Stop date: 12/28/12 21:00:00 ceftriaxone 1 gm, Route: IVPB No Longer [facility] IVPB, Drug form: Active 2012 Medical PDR/INJ, Center [id number], Dosing Weight 100, kg, Start date: 11/29/12 20:00:00, Duration: 30 day, Stop date: 12/28/12 20:00:00 hydrALAZINE 5 mg, 0.25 mL, IV No Longer [facility] Route: IV, Drug Active 2012 Medical form: INJ, Q4H, Center Dosing Weight 100, kg, PRN Hypertension, Start date: 11/29/12 19:42:00, Duration: 30 day, Stop date: 12/29/12 19:41:00 Phenergan 12.5 mg, 0.5 mL, IVPB No Longer [facility] Route: IVPB, Active 2012 Medical Drug form: INJ, Center Q4H, Dosing Weight 100, kg, PRN Nausea & Vomiting, Start date: 11/29/12 17:56:00, Duration: 30 day, Stop date: 12/29/12 17:55:00 clonazepam 0.5 mg, 1 tab, PO No Longer [facility] Route: PO, Drug Active 2012 Medical form: [...] 1,000 mL, Rate: IV No Longer Sush[facility] mL 200 ml/hr, Active 2012 Medical Infuse over: 5 Center hr, Route: IV, kg, Total Volume: 1,000, Start date: 11/29/12 14:41:00, Stop date: 12/29/12 14:40:00 Sodium Chloride 1,000 mL, Rate: IV No Longer [facility] 0.9% IV 1,000 200 ml/hr, Active 2012 Medical mL Infuse over: 5 Center hr, Route: IV, kg, Total Volume: 1,000, Start date: 11/29/12 14:41:00, Stop date: 12/29/12 14:45:00 Insulin regular 99 mL, Rate: IV No Longer [facility] 100 unit + Start Insulin Active 2012 Medical Sodium Chloride Drip Per ICU Center 0.9% IV 99 mL protocol, Route: IV, kg, Total Volume: 100, Start date: 11/29/12 12:42:00, Stop date: 12/29/12 12:41:00 Insulin regular 100 mL, Rate: IVPB No Longer [facility] 11/29[facility] 100 unit + Start Insulin Active 2012 [...] gm, 25 mL, IVP No Longer [facility] Syringe Route: IVP, Drug Active 2012 Medical [...] 90 mg, 1 tab, PO No Longer [place] [facility] Route: PO, Drug Active 2012 Medical form: ERTAB, Center Daily, Dosing Weight 101.364, kg, Start date: 11/29/12 9:00:00, Duration: 30 day, Stop date: 12/28/12 9:00:00 clonazepam 0.5 mg, 1 tab, PO No Longer [facility] Route: PO, Drug Active 2012 Medical form: TAB, TID, Center Dosing Weight 101.364, kg, Start date: 11/29/12 9:00:00, Duration: 30 day, Stop date: 12/28/12 17:00:00 lisinopril 20 mg, 1 tab, PO No Longer [facility] Route: PO, Drug Active 2012 Medical form: TAB, Q12H, Center Dosing Weight 101.364, kg, Start date: 11/29/12 9:00:00, Duration: 30 day, Stop date: 12/28/12 21:00:00 magnesium oxide 400 mg, 1 tab, PO No Longer [place] [facility] Route: PO, Drug Active 2012 Medical form: TAB, Center Daily, Dosing Weight 101.364, kg, Start date: 11/29/12 9:00:00, Duration: 30 day, Stop date: 12/28/12 9:00:00 Effient 10 mg, 1 tab, PO No Longer [place] [facility] Route: PO, Drug Active 2012 Medical form: TAB, Center Daily, Dosing Weight 101.364, kg, Start date: 11/29/12 9:00:00, Duration: 30 day, Stop date: 12/28/12 9:00:00 Levemir 8 unit, 0.08 mL, SUB-Q No Longer [place] [facility] Route: SUB-Q, Active 2012 Medical Drug form: [...] 81 mg, 1 tab, PO No Longer [place] [facility] Route: PO, Drug Active 2012 Medical [...] mg, 0.4 mL, SUB-Q No Longer [facility] Route: SUB-Q, Active 2012 Medical Drug form: INJ, Center [id number], Dosing Weight 101.364, kg, Start date: 11/29/12 4:00:00, Duration: 30 day, Stop date: 12/28/12 4:00:00 Phenergan 12.5 mg, 0.25 IVPB No Longer [place] [facility] mL, Route: IVPB, Active 2012 Medical Drug form: INJ, Center Q4H, Dosing Weight 101.364, kg, Start date: 11/29/12 4:00:00, Duration: 30 day, Stop date: 12/29/12 0:00:00 tramadol 50 mg 50 mg, 1 tab, PO No Longer [facility] oral tablet Route: PO, Drug Active 2012 Medical form: TAB, Q4H, Center Dosing Weight 101.364, kg, PRN as needed for pain, Start date: 11/29/12 3:46:00, Duration: 30 day, Stop date: 12/29/12 3:45:00 insulin aspart 3 unit, 0.03 mL, SUB-Q No Longer [facility] Route: SUB-Q, Active 2012 Medical Drug form: SOLN, [place] TID-Before Meals, Dosing Weight 101.364, kg, PRN Blood Glucose Results, Start date: 11/29/12 3:26:00, Duration: 30 day, Stop date: 12/29/12 3:25:00 Dextrose 50% 12.5 gm, 25 mL, IVP No Longer [place] [facility] Syringe Route: IVP, Drug Active 2012 Medical Form: INJ, Center Dosing Weight 101.364, kg, PRN, PRN Blood Glucose Results, Start date: 11/29/12 3:26:00, Duration: 30 day, Stop date: 12/29/12 3:25:00 glucagon 1 mg, Route: IM, IM No Longer [facility] Drug form: Active 2012 Medical PDR/INJ, PRN, Center Dosing Weight 101.364, kg, PRN Blood Glucose Results, Start date: 11/29/12 3:26:00, Duration: 30 day, Stop date: 12/29/12 3:25:00 acetaminophen 650 mg, 20.3 mL, PO No Longer [facility] Route: PO, Drug Active 2012 Medical form: LIQ, Q4H, Center Dosing Weight 101.364, kg, PRN Pain 1-3/Temp > 100.4 F, Start date: 11/29/12 3:25:00, Duration: 30 day, Stop date: 12/29/12 3:24:00 docusate 100 mg, 1 cap, PO No Longer [facility] Route: PO, Drug Active 2012 Medical form: CAP, BID, Center Dosing Weight 101.364, kg, PRN Constipation, Start date: 11/29/12 3:25:00, Duration: 30 day, Stop date: 12/29/12 3:24:00 D5W 1/2NS 1,000 1,000 mL, Rate: IV No Longer [facility] mL 75 ml/hr, Infuse Active 2012 Medical over: 13.3 hr, Center Route: IV, kg, Total Volume: 1,000, Start date: 11/29/12 3:21:00, Duration: 30 day, Stop date: 12/29/12 3:20:00 NS 0.45% IV 1,000 mL, Rate: IV No Longer [facility] 1000 mL 125 ml/hr, Active 2012 Medical Infuse over: 8 Center hr, Route: IV, Dosing Weight 101.364 kg, Total Volume: 1,000, Start date: 11/29/12 3:18:00, Duration: 30 day, Stop date: 12/29/12 3:17:00 Reglan 10 mg, 2 mL, IVP No Longer [facility] Route: IVP, Drug Active 2012 Medical form: INJ, ONCE, Center Dosing Weight 101.364, kg, Priority: STAT, Start date: 11/29/12 2:31:00, Stop date: 11/29/12 2:31:00 Zofran 8 mg, Route: IVP No Longer [facility] IVP, Drug form: Active 2012 Medical INJ, ONCE, Center Dosing Weight 101.364, kg, Priority: STAT, Start date: 11/29/12 1:52:00, Stop date: 11/29/12 1:52:00 Lortab 500 5 ml, PO, Q6H, PO No Longer [facility] mg-7.5 mg/15 mL PRN, 120 mL, for Active 2012 Medical oral elixir pain, Center Substitution Allowed, Maintenance, ELIX Phenergan 25 mg 1 supp, VT, Q6H, VT Active [facility] rectal PRN, 9 supp, 2012 Medical suppository Nausea & Center Vomiting, Substitution Allowed Phenergan 12.5 mg, 0.5 mL, IVPB No Longer [facility] Route: IVPB, Active 2012 Medical Drug form: INJ, Center ONCE, Dosing Weight 101.364, kg, Priority: STAT, Start date: 11/29/12 0:56:00, Stop date: 11/29/12 0:56:00 Zofran 4 mg, 2 mL, IVP No Longer [facility] Route: IVP, Drug Active 2012 Medical form: INJ, ONCE, Center Dosing Weight 101.364, kg, Priority: STAT, Start date: 11/28/12 23:49:00, Stop date: 11/28/12 23:49:00 Phenergan 12.5 mg, 0.5 mL, IVPB No Longer [place] [facility] Route: IVPB, Active 2012 Medical Drug form: [...] 5 ml, Route: IVP No Longer [facility] 0.9% IVP, Drug Form: Active 2012 Medical INJ, Dosing Center Weight 101.364, kg, PRN, PRN Line Flush, Start date: 11/28/12 19:29:00, Duration: 30 day, Stop date: 12/28/12 19:28:00 calcium 2,000 mg, 20 mL, IVPB No Longer [facility] gluconate + Route: IVPB, Active 2012 Medical Sodium Chloride ONCE, Dosing Center 0.9% IV 80 mL Weight 103.21, kg, Start date: 11/17/12 11:02:00, Stop date: 11/17/12 11:02:00 magnesium 2 gm, 50 mL, IVPB No Longer [facility] sulfate Route: IVPB, Active 2012 Medical Drug form: INJ, Center Q2H, Dosing Weight 103.21, kg, Total dose=4 gm, Start date: 11/17/12 10:00:00, Duration: 2 doses or times, Stop date: 11/17/12 12:00:00 aspirin 81 mg, 1 tab, PO No Longer [facility] Route: PO, Drug Active 2012 Medical form: ECTAB, Center Daily, Dosing Weight 100, kg, Start date: 11/17/12 9:00:00, Duration: 30 day, Stop date: 12/16/12 9:00:00 simvastatin 40 mg, 1 tab, PO No Longer [facility] Route: PO, Drug Active 2012 Medical form: TAB, Center Daily, Dosing Weight 100, kg, Start date: 11/17/12 9:00:00, Duration: 30 day, Stop date: 12/16/12 9:00:00 prasugrel 10 mg, 1 tab, PO No Longer [facility] Route: PO, Drug Active 2012 Medical form: TAB, Center Daily, Dosing Weight 100, kg, Start date: 11/17/12 9:00:00, Duration: 30 day, Stop date: 12/16/12 9:00:00 NIFEdipine 90 mg, 1 tab, PO No Longer [facility] Route: PO, Drug Active 2012 Medical form: ERTAB, Center Daily, Dosing Weight 100, kg, Start date: 11/17/12 9:00:00, Duration: 30 day, Stop date: 12/16/12 9:00:00 Toprol-XL 100 100 mg, 1 tab, PO No Longer [facility] mg oral tablet, Route: PO, Drug Active 2012 Medical extended form: ERTAB, Center release Daily, Start date: 11/17/12 9:00:00, Duration: 30 day, Stop date: 12/16/12 9:00:00 magnesium oxide 400 mg, 1 tab, PO No Longer [facility] Route: PO, Drug Active 2012 Medical form: TAB, Center Daily, Dosing Weight 100, kg, Start date: 11/17/12 9:00:00, Duration: 30 day, Stop date: 12/16/12 9:00:00 insulin detemir 15 unit, 0.15 SUB-Q No Longer [place] [facility] mL, Route: Active 2012 Medical SUB-Q, Drug Center form: INJ, Daily, Dosing Weight 100, kg, Start date: 11/17/12 9:00:00, Duration: 30 day, Stop date: 12/16/12 9:00:00 Zofran 8 mg, 4 mL, IV No Longer [facility] Route: IV, Drug Active 2012 Medical form: INJ, Q4H, Center Dosing Weight 103.21, kg, PRN as needed for nausea/vomiting, Start date: 11/17/12 8:56:00, Duration: 30 day, Stop date: 12/17/12 8:55:00 Reglan 10 mg 10 mg, 1 tab, PO No Longer [facility] oral tablet Route: PO, Drug Active 2012 Medical form: TAB, Center TID-Before Meals, Dosing Weight 100, kg, Start date: 11/17/12 7:30:00, Duration: 30 day, Stop date: 12/16/12 16:30:00 insulin aspart 4 unit, 0.04 mL, SUB-Q No Longer [facility] Route: SUB-Q, Active 2012 Medical Drug form: SOLN, Center TID-Before Meals, Dosing Weight 100, kg, Start date: 11/17/12 7:30:00, Duration: 30 day, Stop date: 12/16/12 16:30:00 Cymbalta 120 mg, 2 cap, PO No Longer [facility] Route: PO, Drug Active 2012 Medical form: DRC, Center Bedtime, Dosing Weight 100, kg, Start date: 11/16/12 21:00:00, Duration: 30 day, Stop date: 12/15/12 21:00:00 lisinopril 20 mg, 1 tab, PO No Longer [facility] Route: PO, Drug Active 2012 Medical form: TAB, Q12H, Center Dosing Weight 100, kg, Start date: 11/16/12 21:00:00, Duration: 30 day, Stop date: 12/16/12 9:00:00 insulin detemir 12 unit, 0.12 SUB-Q No Longer [facility] mL, Route: Active 2012 Medical SUB-Q, Drug Center form: INJ, Bedtime, Dosing Weight 100, kg, Start date: 11/16/12 21:00:00, Duration: 30 day, Stop date: 12/15/12 21:00:00 clonazepam 0.5 mg, 1 tab, PO No Longer [facility] Route: PO, Drug Active 2012 Medical form: TAB, TID, Center Dosing Weight 100, kg, Start date: 11/16/12 20:30:00, Duration: 30 day, Stop date: 12/16/12 17:00:00 Neutra-Phos 1 pkt, Route: PO No Longer [facility] PO, Drug Form: Active 2012 Medical PDR/REC, Dosing Center Weight 100, kg, TID-Before Meals, Start date: 11/16/12 20:30:00, Duration: 30 day, Stop date: 12/16/12 16:30:00 enoxaparin 40 mg, 0.4 mL, SUB-Q No Longer [place] [facility] Route: SUB-Q, Active 2012 Medical Drug form: INJ, Center [id number], Dosing Weight 100, kg, Start date: 11/16/12 19:00:00, Duration: 30 day, Stop date: 12/15/12 19:00:00 Sodium Chloride 1,000 mL, Rate: IV No Longer [place] 0.9% IV 1,000 125 ml/hr, Active 2012 Medical mL Infuse over: 8 Center hr, Route: IV, kg, Total Volume: 1,000, Start date: 11/16/12 18:10:00, Duration: 30 day, Stop date: 12/16/12 18:09:00 insulin aspart 10 unit, 0.1 mL, SUB-Q No Longer [facility] Route: SUB-Q, Active 2012 Medical Drug form: SOLN, Center TID-Before Meals, Dosing Weight 100, kg, PRN Blood Glucose Results, Start date: 11/16/12 18:10:00, Duration: 30 day, Stop date: 12/16/12 18:09:00 Dextrose 50% 12.5 gm, 25 mL, IVP No Longer [facility] Syringe Route: IVP, Drug Active 2012 Medical Form: INJ, Center Dosing Weight 100, kg, PRN, PRN Blood Glucose Results, Start date: 11/16/12 18:10:00, Duration: 30 day, Stop date: 12/16/12 18:09:00 glucagon 1 mg, Route: IM, IM No Longer [facility] Drug form: Active 2012 Medical PDR/INJ, PRN, Center Dosing Weight 100, kg, PRN Blood Glucose Results, Start date: 11/16/12 18:10:00, Duration: 30 day, Stop date: 12/16/12 18:09:00 [place] 5/325 1 tab, Route: PO No Longer [facility] oral tablet PO, Drug Form: Active 2012 Medical TAB, Dosing Center Weight 100, kg, Q6H, PRN as needed for pain, Start date: 11/16/12 18:07:00, Duration: 30 day, Stop date: 12/16/12 18:06:00 tramadol 50 mg 50 mg, 1 tab, PO No Longer [facility] oral tablet Route: PO, Drug Active 2012 Medical form: TAB, Q4H, Center Dosing Weight 100, kg, PRN as needed for pain, Start date: 11/16/12 18:01:00, Duration: 30 day, Stop date: 12/16/12 18:00:00 promethazine 25 mg, 1 tab, PO No Longer [place] [facility] Route: PO, Drug Active 2012 Medical form: TAB, Q4H, Center Dosing Weight 100, kg, PRN as needed for nausea/vomiting, Start date: 11/16/12 18:01:00, Duration: 30 day, Stop date: 12/16/12 18:00:00 ondansetron 8 mg, 2 tab, PO No Longer [facility] Route: PO, Drug Active 2012 Medical form: TABDIS, Center Q8H, Dosing Weight 100, kg, PRN Nausea & Vomiting, Start date: 11/16/12 18:01:00, Stop date: 12/16/12 18:00:00, nauea ondansetron 8 8 mg, 1 tab, PO, PO Active [place] [facility] mg oral tablet, Q8H, PRN, 2012 Medical disintegrating Dissolve under Center tongue, 10 tab, as needed for nausea/vomiting, Substitution AllowedDissolve under tongue Effient 10 mg 10 mg, 1 tab, PO Active [facility] oral tablet PO, Daily, 30 2012 Medical tab, Center Substitution Allowed, TAB tramadol 50 mg 50 mg, 1 tab, PO Active [place] [facility] oral tablet PO, Q4H, PRN, 60 2012 Medical tab, for pain, Center Substitution Allowed, TAB clonazepam 0.5 0.5 mg, 1 tab, PO Active [place] 11/16[facility] mg oral tablet PO, TID, 2012 Medical Substitution Center Allowed, TAB Reglan 10 mg, Route: IVP No Longer [place] [facility] IVP, ONCE, Active 2012 Medical Dosing Weight Center 100, kg, Priority: STAT, Start date: 11/16/12 16:16:00, Stop date: 11/16/12 16:16:00 magnesium 1 gm, 2 mL, IV No Longer [facility] sulfate Route: IV, Drug Active 2012 Medical form: INJ, ONCE, Center Dosing Weight 100, kg, Priority: STAT, Start date: 11/16/12 15:50:00, Stop date: 11/16/12 15:50:00 Omnipaque 100 mL, Route: IVP No Longer [place] [facility] 350mg/ml IVP, Drug Form: Active 2012 Medical SOLN, Dosing Center Weight 100, kg, ONCALL, STAT, Start date: 11/16/12 15:35:00, Duration: 1 doses or times, Dose=2.2ml/kg, Max [id number] -- "To be infused by Radiology Staff ONLY"Dose=2.2ml/ kg, Max [id number] -- "To be infused by Radiology Staff [...] 1 mg, 0.5 mL, IVP No Longer [place] [facility] Route: IVP, Drug Active 2012 Medical [...] mg, 4 tab, CHEW No Longer [facility] Route: CHEW, Active 2012 Medical Drug form: Center CHEWTAB, ONCE, Dosing Weight 100, kg, Priority: STAT, Start date: 11/16/12 13:29:00, Stop date: 11/16/12 13:29:00 Zofran 8 mg, 4 mL, IVP No Longer [facility] Route: IVP, Drug Active 2012 Medical form: INJ, ONCE, Center Dosing Weight 100, kg, Priority: STAT, Start date: 11/16/12 13:17:00, Stop date: 11/16/12 13:17:00 Saline Flush 5 mL, Route: IVP No Longer [facility] 0.9% IVP, Drug Form: Active 2012 Medical INJ, Dosing Center Weight 100, kg, Q8H, PRN Line Flush, Start date: 11/16/12 13:16:00, Duration: 30 day, Stop date: 12/16/12 13:15:00, Administer at least once every 8 hoursAdminister at least once every 8 hours Reglan 10 mg 10 mg, 1 tab, PO Active [facility] 11/14[facility] oral tablet PO, TID-Before 2012 Medical Meals, PRN, 42 Center tab, nausea, Substitution Allowed, TAB [place] 5/325 1 tab, PO, Q6H, PO Active [facility] 11/14[facility] oral tablet PRN, 10 tab, 2013 Medical Pain, Center Substitution Allowed, Maintenance, TAB ondansetron 8 8 mg, 1 tab, PO, PO Active [facility] 11/14[facility] mg oral tablet, Q8H, PRN, 60 2012 Medical disintegrating tab, 1, 1, Center Nausea, Substitution Allowed, TABDIS insulin detemir 12 unit, 0.12 SUB-Q Active [facility] 11/14[facility] 100 units/mL mL, SUB-Q, 2012 Medical subcutaneous Bedtime, 4 mL, Center solution Substitution Allowed, INJ insulin detemir 15 unit, 0.15 SUB-Q Active [facility] 11/14[facility] 100 units/mL mL, SUB-Q, 2012 Medical subcutaneous Daily, 5 mL, Center solution Substitution Allowed, INJ Zofran 4 mg, 1 tab, PO No Longer [facility] Route: PO, Drug Active 2012 Medical form: TAB, Q8H, Center Dosing Weight 100, kg, Start date: 11/14/12 16:00:00, Duration: 30 day, Stop date: 12/14/12 8:00:00 Reglan 10 mg 10 mg, 1 tab, PO No Longer [facility]i oral tablet Route: PO, Drug Active 2012 Medical form: TAB, Center TID-Before Meals, Dosing Weight 100, kg, Start date: 11/14/12 11:30:00, Duration: 30 day, Stop date: 12/14/12 7:30:00 calcium 2,000 mg, 20 mL, IVPB No Longer [facility] gluconate + Route: IVPB, Active 2012 Medical Sodium Chloride Drug form: INJ, Center 0.9% IV 100 mL Q2H, Dosing Weight 100, kg, Total [id number] mg, Start date: 11/14/12 8:00:00, Duration: 2 doses or times, Stop date: 11/14/12 10:00:00 magnesium 2 gm, 50 mL, IVPB No Longer [facility] sulfate Route: IVPB, Active 2012 Medical [...] mEq, 100 mL, IVPB No Longer [facility] chloride Route: IVPB, Active 2012 Medical Drug form: INJ, Center ONCE, Dosing Weight 100, kg, Total dose=20mEq, Start date: 11/13/12 7:58:00, Duration: 1 doses or times, Stop date: 11/13/12 7:58:00, For K=3.5 - 3.9 mEq/LFor K=3.5 - 3.9 mEq/L calcium 1,000 mg, 10 mL, IVPB No Longer [facility] gluconate + Route: IVPB, Active 2012 Medical Sodium Chloride ONCE, Dosing Center 0.9% IV 50 mL Weight 100, kg, Start date: 11/13/12 7:56:00, Stop date: 11/13/12 7:56:00 Reglan 10 mg, 2 mL, IVP No Longer [facility] Route: IVP, Drug Active 2012 Medical form: INJ, Center Before Meals & Bedtime, Dosing Weight 100, kg, Start date: 11/12/12 16:30:00, Duration: 30 day, Stop date: 12/12/12 11:30:00 [place] 5/325 1 tab, Route: PO No Longer [facility] oral tablet PO, Drug Form: Active jaida 2012 Medical TAB, Dosing Center Weight 100, kg, Q6H, PRN Pain, Start date: 11/12/12 16:07:00, Duration: 30 day, Stop date: 12/12/12 16:06:00 Reglan 10 mg, Route: IVP No Longer [facility] IVP, Q6H, Dosing Active 2012 Medical Weight 100, kg, Center PRN Nausea & Vomiting, Start date: 11/12/12 12:35:00, Duration: 30 day, Stop date: 12/12/12 12:34:00 insulin detemir 15 unit, Route: SUB-Q No Longer [facility] SUB-Q, ONCE, Active 2012 Medical Dosing Weight Center 100, kg, Priority: NOW, Start date: 11/12/12 10:38:00, Stop date: 11/12/12 10:38:00 heparin 7,500 unit, 1.5 SUB-Q No Longer [facility] mL, Route: Active 2012 Medical SUB-Q, Drug [...] 1,000 mL, Rate: IV No Longer [facility] [place] 0.9% (Bolus) IV 1,000 ml/hr, Active 2012 Medical 1,000 mL Infuse over: 1 Center hr, Route: IV, kg, Total Volume: 1,000, Priority: STAT, Start date: 11/10/12 20:17:00, Duration: 1 doses or times, Stop date: 11/10/12 21:16:00, Bolus DoseBolus Dose insulin detemir 10 unit, 0.1 mL, SUB-Q No Longer [facility]ing[facility]ale[facility] Route: SUB-Q, Active 2012 Medical Drug form: INJ, Center ONCE, Dosing Weight 100, kg, Priority: NOW, Start date: 11/10/12 11:40:00, Stop date: 11/10/12 11:40:00 Zofran ODT 4 mg, 1 tab, PO No Longer [place] [place] Route: PO, Drug Active 2012 Medical form: TABDIS, Center Q8H, Dosing Weight 100, kg, PRN Nausea, Start date: 11/10/12 11:04:00, Duration: 30 day, Stop date: 12/10/12 11:03:00 Phenergan 12.5 mg, 0.5 mL, IM No Longer Ahmad [place] Route: IM, Drug 2012 Medical form: INJ, PRN, Center Dosing Weight 100, kg, PRN as needed for nausea/vomiting, Start date: 11/10/12 10:00:00, Duration: 30 day, Stop date: 12/10/12 10:59:00 insulin detemir 16 unit, 0.16 SUB-Q No Longer [place] mL, Route: Active 2012 Medical SUB-Q, Drug Center form: INJ, ONCE, Dosing Weight 100, kg, Start date: 11/10/12 0:20:00, Stop date: 11/10/12 0:20:00 NovoLog 6 unit, 0.06 mL, SUB-Q No Longer [facility] Route: SUB-Q, Active 2012 Medical Drug form: SOLN, Center TID-Before Meals, Dosing Weight 100, kg, Start date: 11/09/12 16:30:00, Duration: 30 day, Stop date: 12/09/12 11:30:00 insulin aspart 7 unit, 0.07 mL, SUB-Q No Longer [facility] Route: SUB-Q, Active 2012 Medical Drug form: SOLN, Center ONCE, Dosing Weight 100, kg, Start date: 11/09/12 13:24:00, Stop date: 11/09/12 13:24:00 insulin detemir 20 unit, 0.2 mL, SUB-Q No Longer [facility] Route: SUB-Q, Active 2012 Medical Drug form: INJ, Center Daily, Dosing Weight 100, kg, Start date: 11/09/12 9:00:00, Duration: 30 day, Stop date: 12/08/12 9:00:00 morphine 1 mg, 0.5 mL, IV No Longer [facility] Sulfate Route: IV, Drug Active 2012 Medical form: INJ, ONCE, Center Dosing Weight 100, kg, Start date: 11/09/12 5:28:00, Stop date: 11/09/12 5:28:00 insulin detemir 12 unit, 0.12 SUB-Q No Longer Olejarski [facility] mL, Route: Active 2012 Medical SUB-Q, Drug Center form: INJ, Bedtime, Dosing Weight 100, kg, Start date: 11/08/12 21:00:00, Stop date: 12/07/12 21:00:00 morphine 2 mg, 1 mL, IVP No Longer [place] [facility] Sulfate Route: IVP, Drug Active 2012 Medical form: INJ, ONCE, Center Dosing Weight 100, kg, Start date: 11/08/12 18:34:00, Stop date: 11/08/12 18:34:00 ampicillin + 1,500 mg, Route: IVPB No Longer Aristides [facility] Sodium Chloride IVPB, Drug form: Active 2012 Medical 0.9% IV 100 mL PDR/INJ, ABXQ6H, Center Dosing Weight 100, kg, Start date: 11/08/12 18:00:00, Duration: 30 day, Stop date: 12/08/12 12:00:00 ciprofloxacin 500 mg, 1 tab, PO No Longer [place] [facility] Route: PO, Drug Active 2012 Medical form: TAB, Center [id number], Dosing Weight 100, kg, Start date: 11/08/12 [...] 40 mg, Route: IVP No Longer Quint[place]illa [facility] IVP, Drug form: Active 2012 Medical INJ, Before Center Breakfast, Dosing Weight 100, kg, Start date: 11/07/12 7:30:00, Duration: 30 day, Stop date: 12/06/12 7:30:00 insulin aspart 10 unit, 0.1 mL, SUB-Q No Longer Ahmad [facility] Route: SUB-Q, 2012 Medical Drug form: SOLN, Center ONCE, Dosing Weight 100, kg, Start date: 11/06/12 13:32:00, Stop date: 11/06/12 13:32:00 adenosine 84 mg, Route: IVP No Longer Ahmad [facility] IVP, ONCE, 2012 Medical Dosing Weight Center 100, kg, Priority: Routine, Start date: 11/06/12 10:20:00, Stop date: 11/06/12 10:20:00 Insulin regular 10 unit, 0.1 mL, SUB-Q No Longer [place] [facility] Route: SUB-Q, 2012 Medical Drug form: SOLN, Center ONCE, Dosing Weight 100, kg, Start date: 11/06/12 9:47:00, Stop date: 11/06/12 9:47:00 insulin aspart 10 unit, 0.1 mL, SUB-Q No Longer [place] [facility] Route: SUB-Q, 2012 Medical Drug form: SOLN, Center ONCE, Dosing Weight 100, kg, Start date: 11/06/12 9:43:00, Stop date: 11/06/12 9:43:00 Lactated 1,000 mL, Rate: IV No Longer [place] Ringers (Bolus) 1,000 ml/hr, Active 2012 Medical IV 1,000 mL Infuse over: 1 Center hr, Route: IV, kg, Total Volume: 1,000, Bolus Dose, Priority: STAT, Start date: 11/06/12 9:14:00, Duration: 1 doses or times, Stop date: 11/06/12 10:13:00 Insulin regular 9 unit, 0.09 mL, SUB-Q No Longer Ada [facility] Route: SUB-Q, Active 2012 Medical Drug form: [...] SUB-Q, Active 2012 Medical Drug form: SOLN, [place] TID-Before Meals, Dosing Weight 100, kg, Start date: 11/06/12 7:30:00, Duration: 30 day, Stop date: 12/05/12 16:30:00 metoclopramide 10 mg, 2 mL, IVP No Longer Aristides [facility] Route: IVP, Drug Active 2012 Medical form: INJ, Q6H, Center Dosing Weight 100, kg, PRN Nausea & Vomiting, Start date: 11/06/12 1:49:00, Duration: 30 day, Stop date: 12/06/12 1:48:00 Benadryl 25 mg, 0.5 mL, IV No Longer [place] [facility] Route: IV, Drug Active 2012 Medical form: INJ, Q4H, Center Dosing Weight 100, kg, PRN as needed for nausea/vomiting, Start date: 11/06/12 1:44:00, Duration: 30 day, Stop date: 12/06/12 1:43:00 Phenergan 12.5 mg, 0.5 mL, IVPB No Longer [place] [facility] Route: IVPB, Active 2012 Medical Drug form: INJ, Center Q6H, Dosing Weight 100, kg, PRN Nausea & Vomiting, Start date: 11/06/12 1:43:00, Stop date: 12/06/12 1:42:00 Benadryl 25 mg, 1 cap, PO No Longer [place] [facility] Route: PO, Drug Active 2012 Medical form: CAP, TID, Center Dosing Weight 100, kg, PRN Nausea, Start date: 11/06/12 0:31:00, Duration: 30 day, Stop date: 12/06/12 0:30:00 labetalol 20 mg, 4 mL, IVP No Longer [place] [facility] Route: IVP, Drug Active 2012 Medical form: INJ, ONCE, Center Dosing Weight 100, kg, Start date: 11/06/12 0:25:00, Stop date: 11/06/12 0:25:00 simvastatin 40 mg, 1 tab, PO No Longer [place] [facility] Route: PO, Drug Active 2012 Medical form: TAB, Center Bedtime, Dosing Weight 100, kg, Start date: 11/05/12 23:00:00, Duration: 30 day, Stop date: 12/05/12 21:00:00 lisinopril 20 mg, 1 tab, PO No Longer [place] [facility] Route: PO, Drug Active 2012 Medical form: TAB, Q12H, Center Dosing Weight 100, kg, Start date: 11/05/12 23:00:00, Duration: 30 day, Stop date: 12/05/12 21:00:00 insulin detemir 20 unit, 0.2 mL, SUB-Q No Longer Olejarski [facility] Route: SUB-Q, Active 2012 Medical Drug form: INJ, Center Q12H, Dosing Weight 100, kg, Start date: 11/05/12 23:00:00, Stop date: 12/05/12 21:00:00 magnesium oxide 400 mg, 1 tab, PO Active [place] 400 mg oral PO, Daily, 2012 Medical tablet tab, Center Substitution Allowed, TAB metoprolol 100 100 mg, 1 tab, PO Active [facility] mg oral tablet, PO, Daily, 30 2012 Medical extended tab, Center release Substitution Allowed NIFEdipine 90 90 mg, 1 tab, PO Active [facility] mg oral tablet, PO, Daily, 30 2012 Medical extended tab, Center release Substitution Allowed, ERTAB prasugrel 10 mg 10 mg, 1 tab, PO Active [facility] oral tablet PO, Daily, 2012 Medical tab, Center Substitution Allowed, TAB Cymbalta 60 mg, Daily, Active [facility] Substitution 2012 Medical Allowed Center tramadol 50 mg 50 mg, 1 tab, PO No Longer [place] [facility] oral tablet Route: PO, Drug Active 2012 Medical form: TAB, Q4H, Center Dosing Weight 100, kg, PRN For Pain, Start date: 11/05/12 22:39:00, Duration: 30 day, Stop date: 12/05/12 22:38:00 promethazine 25 mg, 1 tab, PO No Longer [place] [facility] Route: PO, Drug Active 2012 Medical form: TAB, Q6H, Center Dosing Weight 100, kg, PRN as needed for nausea/vomiting, Start date: 11/05/12 22:39:00, Duration: 30 day, Stop date: 12/05/12 22:38:00 Phenergan 25 mg, 1 tab, PO No Longer [place] [facility] Route: PO, Drug Active 2012 Medical form: TAB, Q4H, Center Dosing Weight 104.545, kg, PRN Nausea & Vomiting, Start date: 11/05/12 22:33:00, Duration: 30 day, Stop date: 12/05/12 22:32:00 Zofran 8 mg, 4 mL, IV No Longer [place]jo [place] Route: IV, Drug Active 2012 Medical form: INJ, Q8H, Center Dosing Weight 104.545, kg, PRN Nausea, Start date: 11/05/12 22:32:00, Duration: 30 day, Stop date: 12/05/12 22:31:00 Saline Flush 5 ml, Route: IVP No Longer [place] 0.9% IVP, Drug Form: Active 2012 Medical INJ, Dosing Center Weight 104.545, kg, PRN, PRN Line Flush, Start date: 11/05/12 22:14:00, Duration: 30 day, Stop date: 12/05/12 23:13:00 Sodium Chloride 500 mL, Rate: IV No Longer [place] 0.9% (Bolus) IV 2,000 ml/hr, Active 2012 Medical 500 mL Infuse over: 15 Center minutes, Route: IV, kg, Total Volume: 500, Priority: STAT, Start date: 11/05/12 22:14:00, Duration: 1 doses or times, Stop date: 11/05/12 22:28:00 nitroglycerin 0.4 mg, 1 tab, SL No Longer [place] [facility] SL Tab Route: SL, Drug 2012 Medical form: TAB, Center Q5Min, Dosing Weight 104.545, kg, PRN Chest Pain, Start date: 11/05/12 22:14:00, Duration: 3 doses or times, Stop date: Limited # of times Phenergan 12.5 mg, Route: IVPB No Longer Dilan [place] IVPB, ONCE, Active 2012 Medical Dosing Weight Center 104.545, kg, Priority: STAT, Start date: 11/05/12 22:05:00, Stop date: 11/05/12 22:05:00 Phenergan 12.5 mg, 0.5 mL, IVPB No Longer Dilan [facility] Route: IVPB, Active 2012 Medical Drug form: INJ, Center ONCE, Dosing Weight 104.545, kg, Priority: STAT, Start date: 11/05/12 21:08:00, Stop date: 11/05/12 21:08:00 carvedilol 12.5 mg, 1 tab, PO No Longer Dilan [facility] Route: PO, Drug Active 2012 Medical form: TAB, ONCE, Center Dosing Weight 104.545, kg, Start date: 11/05/12 19:20:00, Stop date: 11/05/12 19:20:00 Effient 10 mg, 1 tab, PO No Longer Dilan [facility] Route: PO, Drug Active 2012 Medical form: TAB, ONCE, Center Dosing Weight 104.545, kg, Start date: 11/05/12 19:16:00, Stop date: 11/05/12 19:16:00 ondansetron 4 mg, 2 mL, IVP No Longer Dilan [facility] Route: IVP, Drug Active 2012 Medical form: INJ, ONCE, Center Dosing Weight 104.545, kg, Priority: STAT, Start date: 11/05/12 19:14:00, Stop date: 11/05/12 19:14:00 aspirin 324 mg, 4 tab, PO No Longer Dilan [facility] Route: PO, Drug Active 2012 Medical form: [place], Center ONCE, Dosing Weight 104.545, kg, Priority: STAT, Start date: 11/05/12 19:14:00, Stop date: 11/05/12 19:14:00 Saline Flush 5 mL, Route: IVP No Longer Dilan [facility] 0.9% IVP, Drug Form: Active 2012 Medical [...] detemir 16 unit, 0.16 SUB-Q No Longer [place] mL, Route: Active 2012 Medical SUB-Q, Drug Center form: INJ, Q12H, Dosing Weight 78.2, kg, Start date: 10/31/12 21:00:00, Duration: 30 day, Stop date: 11/30/12 9:00:00 insulin aspart 4 unit, 0.04 mL, SUB-Q Active [place] 100 units/mL SUB-Q, 2012 Medical subcutaneous TID-Before [place] solution Meals, 1 vial, 2, 2, Substitution Allowed, SOLN insulin detemir 16 unit, 0.16 SUB-Q Active [facility] 100 units/mL mL, SUB-Q, Q12H, 2012 Medical subcutaneous 1 vial, 2, 2, Center solution Substitution Allowed, INJ tramadol 50 mg 50 mg, 1 tab, PO Active [place] oral tablet PO, Q4H, PRN, 30 2012 Medical tab, as needed Center for pain, Substitution Allowed, TAB simvastatin 40 40 mg, 1 tab, PO Active [place] mg oral tablet PO, Bedtime, 30 2012 Medical tab, 1, 1, Center Substitution Allowed, Maintenance, TAB promethazine 25 25 mg, 1 tab, PO Active [place] mg oral tablet PO, Q6H, PRN, 60 2012 Medical tab, 1, 1, Center Nausea & Vomiting, Substitution Allowed, TAB prasugrel 10 mg 10 mg, 1 tab, PO Active [place] oral tablet PO, Daily, 30 2012 Medical tab, 1, 1, Center Substitution Allowed, TAB ondansetron 8 8 mg, 1 tab, PO, PO Active Gee 10/31/ [place] mg oral tablet, Q8H, PRN, 60 2012 Medical disintegrating tab, 1, 1, Center Nausea, Substitution Allowed, TABDIS NIFEdipine 90 90 mg, 1 tab, PO Active [place] 10/31/ [place] mg oral tablet, PO, Daily, 30 2012 Medical extended tab, 1, 1, Center release Substitution Allowed, ERTAB Toprol-XL 100 100 mg, 1 tab, PO Active [place]ee 10/31/ [place] mg oral tablet, PO, Daily, 30 2012 Medical extended tab, 1, 1, Center release Substitution Allowed, ERTAB magnesium oxide 400 mg, 1 tab, PO Active [place] 10/31/ [place] 400 mg oral PO, Daily, 30 2012 Medical tablet tab, 1, 1, Center Substitution Allowed, TAB lisinopril 20 20 mg, 1 tab, PO Active [place] 10/31/ [place] mg oral tablet PO, Q12H, 60 2012 Medical tab, 1, 1, Center Substitution Allowed, TAB aspirin 81 mg 81 mg, 1 tab, PO Active [place] [facility] tablet, enteric PO, Daily, 30 2012 Medical coated tab, 1, 1, Center Substitution Allowed, ECTAB insulin aspart 6 unit, 0.06 mL, SUB-Q No Longer [place] Route: SUB-Q, Active 2012 Medical Drug form: SOLN, [place] TID-Before Meals, Dosing Weight 78.2, kg, PRN [...] 50 mg, 1 tab, PO No Longer [place] oral tablet Route: PO, Drug Active 2012 Medical form: TAB, Q4H, Center Dosing Weight 78.2, kg, PRN as needed for pain, Start date: 10/29/12 9:45:00, Duration: 30 day, Stop date: 11/28/12 9:44:00 Toradol 15 15 mg, 0.5 mL, IV No Longer [place] [facility] mg/mL Route: IV, Drug Active 2012 Medical injectable form: INJ, ONCE, Center solution Dosing Weight 78.2, kg, Start date: 10/29/12 6:54:00, Stop date: 10/29/12 6:54:00 Toradol 15 15 mg, 0.5 mL, IV No Longer [place] [facility] mg/mL Route: IV, Drug Active 2012 Medical [...] 20 mg, Route: IVP No Longer [place] 02/22[facility] IVP, Drug form: Active 2012 Medical INJ, ONCE, Center Dosing Weight 78.2, kg, Start date: 10/27/12 19:28:00, Stop date: 10/27/12 19:28:00 labetalol 20 mg, 4 mL, IVP No Longer [place] 10/27[facility] Route: IVP, Drug Active 2012 Medical form: INJ, ONCE, Center Dosing Weight 78.2, kg, Start date: 10/27/12 17:28:00, Stop date: 10/27/12 17:28:00 Benadryl 25 mg, 1 cap, PO No Longer [place] [facility] Route: PO, Drug Active 2012 Medical form: CAP, ONCE, Center Dosing Weight 78.2, kg, Start date: 10/27/12 17:28:00, Stop date: 10/27/12 17:28:00 Reglan 10 mg 10 mg, Route: PO No Longer [place] [facility] oral tablet PO, Drug form: Active 2012 Medical TAB, Before Center Meals & Bedtime, Dosing Weight 78.2, kg, Start date: 10/27/12 16:30:00, Duration: 30 day, Stop date: 11/26/12 11:30:00 Reglan 5 mg, 1 mL, IV No Longer [place] [facility] Route: IV, Drug Active 2012 Medical form: INJ, Q8H, Center Dosing Weight 78.2, kg, Start date: 10/27/12 16:00:00, Duration: 30 day, Stop date: 11/26/12 8:00:00 Reglan 5 mg, 1 mL, IV No Longer [place] [facility] Route: IV, Drug Active 2012 Medical form: INJ, Q8H, Center Dosing Weight 78.2, kg, PRN Nausea, Start date: 10/27/12 13:08:00, Duration: 30 day, Stop date: 11/26/12 13:07:00 lisinopril 20 mg, 1 tab, PO No Longer [place] [facility] Route: PO, Drug Active 2012 Medical form: TAB, Q12H, Center Dosing Weight 78.2, kg, Start date: 10/27/12 10:00:00, Duration: 30 day, Stop date: 11/26/12 9:00:00 ergocalciferol 50,000 IntlUnit, PO No Longer [place] [facility] 1 cap, Route: Active 2012 Medical PO, Drug form: Center CAP, Daily, Dosing Weight 78.2, kg, Start date: 10/27/12 9:00:00, Duration: 4 day, Stop date: 10/30/12 9:00:00 magnesium oxide 400 mg, 1 tab, PO No Longer [place] Route: PO, Drug Active 2012 Medical form: TAB, Center Daily, Dosing Weight 78.2, kg, Start date: 10/27/12 9:00:00, Duration: 30 day, Stop date: 11/25/12 9:00:00 Toprol-XL 100 100 mg, 1 tab, PO No Longer [place] [facility] mg oral tablet, Route: PO, Drug Active 2012 Medical extended form: ERTAB, [place] release Daily, Start date: 10/27/12 9:00:00, Duration: 30 day, Stop date: 11/25/12 9:00:00 insulin aspart 7 unit, Route: SUB-Q No Longer [place] [facility] SUB-Q, Drug Active 2012 Medical form: WHITLloyd [place] TID-Before Meals, Dosing Weight 78.2, kg, Start date: 10/26/12 12:00:00, Duration: 30 day, Stop date: 11/25/12 11:30:00 Insulin regular 10 unit, 0.1 mL, SUB-Q No Longer [place] [facility] Route: SUB-Q, Active 2012 [facility] Dosing Weight 78.2, kg, Start date: 10/26/12 10:32:00, Stop date: 10/26/12 10:32:00 NIFEdipine 90 mg, 1 tab, PO No Longer [place] [facility] extended Route: PO, Drug Active 2012 Medical release form: ERTAB, [place] Daily, Dosing Weight 78.2, kg, Start date: 10/26/12 9:00:00, Duration: 30 day, Stop date: 11/24/12 9:00:00 metoprolol 25 mg, 1 tab, PO No Longer [place] [facility] tartrate Route: PO, Drug Active 2012 Medical form: TAB, Q12H, Center Dosing Weight 78.2, kg, Start date: 10/26/12 9:00:00, Duration: 30 day, Stop date: 11/24/12 21:00:00 Reglan 10 mg, 1 tab, PO No Longer [place] [facility] Route: PO, Drug Active 2012 Medical form: [...] gm, 50 mL, IVPB No Longer Dalton [facility] sulfate Route: IVPB, Active 2012 Medical Drug [...] mg, 1 tab, PO No Longer Dalton [facility] Route: PO, Drug Active 2012 Medical form: ERTAB, Center ONCE, Dosing Weight 78.2, kg, Start date: 10/25/12 14:49:00, Stop date: 10/25/12 14:49:00 1/2 NS 1,000 mL 1,000 mL, Rate: IV No Longer [place] 100 ml/hr, Active 2012 Medical Infuse over: 10 Center hr, Route: IV, kg, Total Volume: 1,000, Start date: 10/25/12 13:52:00, Duration: 30 day, Stop date: 11/24/12 13:51:00 atenolol 100 mg, 1 tab, PO No Longer [place] [facility] Route: PO, Drug Active 2012 Medical form: TAB, Center Daily, Dosing Weight 78.2, kg, Start date: 10/25/12 9:00:00, Duration: 30 day, Stop date: 11/23/12 9:00:00 Protonix 40 mg, Route: IVP No Longer [place] [facility] IVP, Drug form: Active 2012 Medical INJ, Daily, Center Dosing Weight 78.2, kg, Start date: 10/25/12 9:00:00, Duration: 30 day, Stop date: 11/23/12 9:00:00 NovoLog FlexPen 6 unit, 0.06 mL, SUB-Q No Longer [place] Route: SUB-Q, 2012 Medical Drug form: SOLN, Center TID-Before Meals, Start date: 10/25/12 7:30:00, Duration: 30 day, Stop date: 11/23/12 16:30:00 insulin lispro 6 unit, Route: SUB-Q No Longer Funez [facility] SUB-Q, 2012 Medical TID-Before Center Meals, Dosing Weight 78.2, kg, Start date: 10/25/12 7:30:00, Duration: 30 day, Stop date: 11/23/12 16:30:00 Lactated 1,000 mL, Rate: IV No Longer Dee Dee Jon [facility] Ringers IV 250 ml/hr, Active 2012 Medical 1,000 mL Infuse over: 4 Center hr, Route: IV, kg, Total Volume: 1,000, Start date: 10/25/12 5:50:00, Duration: 30 day, Stop date: 11/24/12 5:49:00 Lactated 1,000 mL, Rate: [facility] Ringers (Bolus) 100 ml/hr, Active 2012 Medical IV 1,000 mL Infuse over: 10 Center hr, Route: IV, kg, Total Volume: 1,000, Start date: 10/25/12 5:50:00, Duration: 1 doses or times, Stop date: 10/25/12 15:49:00 insulin aspart 9 unit, 0.09 mL, SUB-Q No Longer [place] [facility] Route: SUB-Q, Active 2012 Medical Drug form: SOLN, Center TID-Before Meals, Dosing Weight 78.2, kg, PRN Blood Glucose Results, Start date: 10/25/12 3:53:00, Duration: 30 day, Stop date: 11/24/12 3:52:00 glucagon 1 mg, Route: IM, IM No Longer Funez [facility] Drug form: Active 2012 Medical PDR/INJ, PRN, Center Dosing Weight 78.2, kg, PRN Blood Glucose Results, Start date: 10/25/12 3:53:00, Duration: 30 day, Stop date: 11/24/12 4:52:00 Dextrose 50% 12.5 gm, 25 mL, IVP No Longer Funez [facility] 10/25[facility] Syringe Route: IVP, Drug Active 2012 Medical Form: INJ, Center Dosing Weight 78.2, kg, PRN, PRN Blood Glucose Results, Start date: 10/25/12 3:53:00, Duration: 30 day, Stop date: 11/24/12 4:52:00 Dextrose 50% 25 mL, Route: IVP No Longer Funez [facility] 10/25[facility] Syringe IVP, Dosing Active 2012 Medical Weight 78.2, kg, Center PRN, PRN Blood Glucose Results, Start date: 10/25/12 3:52:00, Duration: 30 day, Stop date: 11/24/12 4:51:00 glucagon 1 mg, Route: IM, IM No Longer Funez [facility] 10/25[facility] PRN, Dosing Active 2012 Medical Weight 78.2, kg, Center PRN Blood Glucose Results, Start date: 10/25/12 3:52:00, Duration: 30 day, Stop date: 11/24/12 4:51:00 Neutra-Phos 2 pkt, Route: PO No Longer Neeru [facility] PO, Drug Form: Active 2012 Medical PDR/REC, [...] mg, 1 mL, IVP No Longer [place] [facility] Sulfate Route: IVP, Drug Active 2012 Medical [...] 1 tab, PO No Longer Funez [place] [facility] tartrate Route: PO, Drug Active 2012 Medical form: TAB, Q8H, Center Dosing Weight 78.2, kg, Start date: 10/24/12 16:00:00, Duration: 30 day, Stop date: 11/23/12 8:00:00 clonazepam 0.5 mg, 1 tab, PO [facility] Long[facility] Route: PO, Drug Active 2012 Medical form: TAB, ONCE, Center Dosing Weight 78.2, kg, Start date: 10/24/12 15:03:00, Stop date: 10/24/12 15:03:00 NIFEdipine 60 mg, 1 tab, PO No Longer [place] [facility] extended Route: PO, Drug Active 2012 Medical [...] 40 mg, 2 tab, PO No Longer [place] Fei Route: PO, Drug Active 2012 Medical [...] mL, Rate: IV No Longer [facility] Ringers 150 ml/hr, Active 2012 Medical Injection IV Infuse over: 6.7 Center 1,000 mL hr, Route: IV, kg, Total Volume: 1,000, Start date: 10/24/12 11:50:00, Duration: 30 day, Stop date: 11/23/12 11:49:00 lisinopril 20 mg, 1 tab, PO No Longer [facility] Route: PO, Drug Active 2012 [...] 24 hr aspirin 200 mg, 1 supp, [place] No Longer Orozco Fe[facility] Route: VT, Drug Active 2012 Medical form: SUPP, Center [...] Duration: 1 doses or times, Dose=2.2ml/kg, Max [id number] -- "To be infused by Radiology Staff ONLY"Dose=2.2ml/ kg, Max [id number] -- "To be infused by Radiology Staff [...] Duration: 1 doses or times, Dose=2.2ml/kg, Max [id number] -- "To be infused by Radiology Staff ONLY"Dose=2.2ml/ kg, Max [id number] -- "To be infused by Radiology Staff ONLY" Insulin 100 mL, Rate: IV No Longer [place] Fe[facility] (regular) 0.1units/kg/hour Active 2012 Medical Titrate [...] 1,000 mL, Rate: IV No Longer Isaac [facility] 0.9% IV 1,000 100 ml/hr, Active 2012 Medical mL + M.V.I.-12 Infuse over: Center 10 mL Daily + 10.1 hr, Route: folic acid IV 1 IV, kg, Total mg Daily + Volume: 1,011.2, thiamine IV 1 Start date: 10/23/12 8:41:00, Duration: 3 day, Stop date: 10/26/12 8:40:00 Insulin regular 100 mL, Rate: IVPB No Longer Isaac [facility] 100 unit + Start Insulin Active 2012 [...] gm, 50 mL, IVP No Longer Isaac [place] Syringe Route: IVP, Drug Active 2012 Medical Form: INJ, Center Dosing Weight 113.636, kg, PRN, PRN Blood Glucose Results, Start date: 10/23/12 8:17:00, Duration: 30 day, Stop date: 11/22/12 9:16:00 normal saline 1,000 mL, Rate: IV No Longer Isaac [place] 0.9% IV 1,000 150 ml/hr, Active 2012 Medical mL Infuse over: 6.7 Center hr, Route: IV, kg, Total Volume: 1,000, Start date: 10/23/12 5:07:00, Duration: 30 day, Stop date: 11/22/12 5:06:00 NS (Bolus) IV 1,000 mL, 0 IV No Longer Kristy [facility] ml/hr, Route: Active 2012 Medical IV, Drug Form: Center INJ, Dosing Weight 113.636, kg, ONCE, STAT, Start date: 10/23/12 5:06:00, Duration: 1 doses or times, Stop date: 10/23/12 5:06:00 hydrALAZINE 10 mg, 0.5 mL, IV No Longer Funez Kamel [facility] Route: IV, Drug Active 2012 Medical form: INJ, Q4H, Center Dosing Weight 113.636, kg, PRN Other -See Comment, Start date: 10/23/12 0:38:00, Duration: 30 day, Stop date: 11/22/12 0:37:00, hypertesnion acetaminophen 650 mg, 1 supp, [place] No Longer Kristy [place] Route: VT, Drug Active 2012 Medical form: SUPP, Q6H, Center Dosing Weight 113.636, kg, PRN Fever, Start date: 10/23/12 0:37:00, Duration: 30 day, Stop date: 11/22/12 0:36:00 Dilaudid 0.5 mg, 0.25 mL, IV No Longer Dalton [facility] Route: IV, Drug Active 2012 Medical form: INJ, Q2H, Center Dosing Weight 113.636, kg, PRN Pain, Start date: 10/23/12 0:37:00, Duration: 30 day, Stop date: 11/22/12 0:36:00 metoprolol 5 5 mg, 5 mL, IVP No Longer Dee Dee Jon [facility] mg/5 ml INJ Route: IVP, Drug Active 2012 Medical form: INJ, Q3H, Center Dosing Weight 113.636, kg, PRN Hypertension, Start date: 10/23/12 0:35:00, Duration: 30 day, Stop date: 11/22/12 0:34:00 Insulin regular 2 unit, 0.02 mL, SUB-Q No Longer Isaac [facility] Route: SUB-Q, Active 2012 Medical Drug form: SOLN, Center Sliding Scale, Dosing Weight 113.636, kg, PRN Blood Glucose Results, Start date: 10/23/12 0:26:00, Duration: 30 day, Stop date: 11/22/12 1:25:00 glucagon 1 mg, Route: IM, IM No Longer Isaac [place] Drug form: Active 2012 Medical PDR/INJ, PRN, Center Dosing Weight 113.636, kg, PRN Blood Glucose Results, Start date: 10/23/12 0:26:00, Duration: 30 day, Stop date: 11/22/12 1:25:00 Dextrose 50% 25 gm, 50 mL, IVP No Longer Isaac [place] Syringe Route: IVP, Drug Active 2012 Medical Form: INJ, Center Dosing Weight 113.636, kg, PRN, PRN Blood Glucose Results, Start date: 10/23/12 0:26:00, Duration: 30 day, Stop date: 11/22/12 1:25:00 Zofran ODT 8 mg, 1 tab, PO No Longer [place] Route: PO, Drug Active 2012 Medical form: TABDIS, Center Q8H, Dosing Weight 113.636, kg, PRN Nausea, Start date: 10/23/12 0:02:00, Stop date: 11/22/12 0:01:00 heparin 5,000 unit, SUB-Q No Longer Brian [place] Route: SUB-Q, Active 2012 Medical Q8H, Dosing Center Weight 113.636, kg, Start date: 10/23/12 0:00:00, Duration: 30 day, Stop date: 11/21/12 16:00:00 carvedilol 25 Daily, No Longer [place] mg oral tablet Substitution Active 2012 Medical Allowed [place] Diovan HCT 160 1 tab, PO, PO No Longer [place] mg-12.5 mg oral Daily, 30 tab, Active 2012 Medical tablet Substitution Center Allowed, Maintenance, TAB D5W 1/2NS + KCL 1,000 mL, Rate: IV No Longer Isaac [place] 20mEq/L 1000ml 150 ml/hr, Active 2012 Medical [...] Duration: 7 day, Stop date: 10/14/12 9:00:00 [place] 325 mg-10 15 mL, Route: PO No [...] mEq, 100 mL, IVPB No Longer Bagshahi [place] chloride Route: IVPB, Active 2012 Medical Drug form: INJ, Center ONCE, Dosing Weight 118.2, kg, Total dose=20 mEq, Start date: 10/07/12 7:53:00, Duration: 1 doses or times, Stop date: 10/07/12 7:53:00, For K=3.5 - 3.9 mEq/LFor K=3.5 - 3.9 mEq/L Blistex 1 appl, Route: TOP No Longer [facility] TOP, PRN, Drug Active 2012 Medical form: STIC PRN Center Other -See Comment, Start date: 10/06/12 22:48:00, Duration: 30 day, Stop date: 11/05/12 22:47:00 Blistex Lip Route: TOP, TOP No Longer [facility] [place] Dosing Weight Active 2012 Medical 118.2, kg, [...] mg, 5 mL, IVP No Longer Sushila [facility] mg/5 ml INJ Route: IVP, Drug Active [...] mg, 1 tab, PO No Longer Sushila [place] Route: PO, Drug Active 2012 Medical form: TAB, Q12H, Center Dosing Weight 118.2, kg, Start date: 10/04/12 21:00:00, Duration: 30 day, Stop date: 11/03/12 9:00:00 [place] 325 mg-10 30 mL, Route: PO No Longer Allenson Fei mg / 15 mL oral PO, Drug Form: Active 2012 Medical solution SOLN, Dosing Center Weight 118.2, kg, Q4H, PRN Pain Score 6-10, Start date: 10/04/12 17:20:00, Duration: 30 day, Stop date: 11/03/12 17:19:00 Diovan 160 mg, 1 tab, PO No Longer Sushila [facility] Route: PO, Drug Active 2012 Medical form: TAB, Center Daily, Dosing Weight 118.2, kg, Start date: 10/04/12 14:00:00, Duration: 30 day, Stop date: 11/03/12 9:00:00 Trandate 10 mg, 2 mL, IVP No Longer Low [place] Route: IVP, Drug Active 2012 Medical form: INJ, Q4H, Center PRN Elevated BP, Start date: 10/04/12 9:05:00, Duration: 30 day, Stop date: 11/03/12 9:04:00 hydrALAZINE 20 mg, 1 mL, IVP No Longer Low [facility] Route: IVP, Drug Active 2012 Medical form: [...] 25 gm, 50 mL, IVP No Longer Parmeleson Fei Syringe Route: IVP, Drug Active 2012 Medical Form: INJ, Center Dosing Weight 118.2, kg, PRN, PRN Blood Glucose Results, Start date: 10/04/12 0:40:00, Duration: 30 day, Stop date: 11/03/12 0:39:00 glucagon 1 mg, Route: IM, IM No Longer [facility] Drug form: Active 2012 Medical PDR/INJ, PRN, Center Dosing Weight 118.2, kg, PRN Blood Glucose Results, Start date: 10/04/12 0:40:00, Duration: 30 day, Stop date: 11/03/12 0:39:00 Ofirmev 1,000 mg, 100 IV No Longer [facility] mL, Route: IV, Active 2012 Medical Drug form: INJ, Center Q6H, Start date: 10/03/12 18:00:00, Duration: 4 doses or times, Stop date: 10/04/12 12:00:00 Mefoxin 2 gm, Route: IVPB No Longer [facility] IVPB, Drug form: Active 2012 Medical INJ, ABXQ8H, [place] Start date: 10/03/12 16:00:00, Duration: 2 doses or times, Stop date: 10/04/12 0:00:00 Lopressor 5 mg, 5 mL, IV No Longer Low [facility] Route: IV, Drug Active 2012 Medical form: INJ, Q6H, Center Start date: 10/03/12 16:00:00, Duration: 30 day, Stop date: 11/02/12 10:00:00 Humulin R 100 10 unit, 0.1 mL, SUB-Q No Longer [facility] units/mL Route: SUB-Q, Active 2012 Medical injectable Drug form: [facility] solution TID-Before Meals, PRN Blood Glucose Results, Start date: 10/03/12 14:30:00, Duration: 30 day, Stop date: 11/02/12 14:29:00 Dextrose 50% in 50 mL, Route: IV No Longer [facility] 10/03[facility] IV IV, Start date: Active 2012 Medical 10/03/12 [place] 14:29:00, Duration: 30 day, Stop date: 11/02/12 14:28:00, PRN Blood Glucose Results Dextrose 50% in 25 mL, Route: IVP No Longer [facility] 10/03[facility] IV IVP, Start date: Active 2012 Medical 10/03/12 [place] 14:28:00, Duration: 30 day, Stop date: 11/02/12 14:27:00, PRN Blood Glucose Results Zofran 4 mg, 2 mL, IVP No Longer Low [place] Route: IVP, Drug Active 2012 Medical form: INJ, Q8H, Center PRN Nausea, Start date: 10/03/12 14:22:00, Duration: 30 day, Stop date: 11/02/12 14:21:00 naloxone 0.2 mg, 0.5 mL, IV No Longer Bagshahi [place] Route: IV, Drug Active 2012 Medical form: INJ, PRN, Center PRN Narcotic Reversal, Start date: 10/03/12 14:21:00, Duration: 30 day, Stop date: 11/02/12 14:20:00 hydromorphone IV, Start date: IV No Longer Low [place] 15 mg 10/03/12 Active 2012 Medical 14:19:00, Center Duration: 30, 30 ml, 118.2 Phenergan 12.5 mg, 0.5 mL, IVPB No Longer Bagshi [place] Route: IVPB, Active 2012 Medical Drug form: INJ, Center Q4H, PRN Nausea, Start date: 10/03/12 14:08:00, Duration: 30 day, Stop date: 11/02/12 14:07:00 Phenergan 12.5 mg, 0.5 mL, IM No Longer Bagshi [place] Route: IM, Drug Active 2012 Medical form: INJ, Q4H, Center PRN Nausea, Start date: 10/03/12 14:07:00, Duration: 30 day, Stop date: 11/02/12 14:06:00 Benadryl 25 mg, 0.5 mL, IM No Longer Sushila [place] Route: IM, Drug Active 2012 Medical form: INJ, Center Bedtime, PRN Insomnia, Start date: 10/03/12 14:04:00, Duration: 30 day, Stop date: 11/02/12 14:03:00 Lactated 1,000 mL, Rate: IV No Longer Low [place] Ringers 125 ml/hr, Active 2012 Medical Injection IV Infuse over: 8 Center 1,000 mL hr, Route: IV, kg, Total Volume: 1,000, Start date: 10/03/12 14:00:00, Duration: 30 day, Stop date: 11/02/12 13:59:00 ondansetron 4 mg, 2 mL, IVP No Longer Jose [facility] Route: IVP, Drug Active 2012 Medical form: [...] mg, 0.25 mL, IVP No Longer Jose [facility] Route: IVP, Drug Active 2012 Medical form: [...] 2 gm, Route: IVPB No Longer Sushila [place] IVPB, Drug form: Active 2012 Medical INJ, PRE OP, Center Priority: STAT, Start date: 10/03/12 5:50:00, Duration: 1 day, Stop date: 10/04/12 5:49:00 Mobic 15 mg 10 mg, PO, PO Active [place] oral tablet Daily, 30 tab, 2012 Medical Substitution Center Allowed, TAB Zetia Daily, Active [facility] Substitution 2011 Medical Allowed Center Klor-Con 10 10 mEq, 1 tab, PO Active [facility] oral tablet, PO, Daily, 180 2011 Medical extended tab, Center release Substitution Allowed, ERTAB ferrous 324 mg, 1 tab, PO Active [facility] gluconate 324 PO, Daily, 100 2011 Medical mg oral tablet tab, Center Substitution Allowed, TAB Lasix 40 mg 40 mg, 1 tab, PO Active [facility] oral tablet PO, Daily, 30 2011 Medical tab, Center Substitution Allowed, TAB Cymbalta 60 mg 60 mg, 1 cap, PO Active [facility] oral delayed PO, BID, 30 cap, 2011 Medical release capsule Substitution Center Allowed, ECCAP Crestor 20 mg 20 mg, 1 tab, PO Active [facility] oral tablet PO, Daily, 30 2011 Medical tab, Center Substitution Allowed, TAB Flexeril 10 mg 10 mg, 1 tab, PO Active [facility] oral tablet PO, TID, PRN, 30 2011 Medical tab, for spasm, Center Substitution Allowed, TAB Lyrica 150 mg 150 mg, 1 cap, PO Active [facility] oral capsule PO, BID, 90 cap, 2011 Medical Substitution Center Allowed, CAP Klonopin 0.5 mg 0.5 mg, 1 tab, PO Active [place] oral tablet PO, TID, 2011 Medical Substitution Center Allowed, TAB Diovan 160 mg 160 mg, 1 tab, PO Active [facility] oral tablet PO, Daily, 30 2011 Medical [...] Allowed NovoLog Substitution Active [place] Allowed 2011 [facility] Center Levemir FlexPen Substitution Active [facility] Allowed 2011 [facility] Allergies, Adverse Reactions, Alerts Substance Category Reaction Severity Reaction Status Date Comments Source type Reported NKDA drug Allergy Active [facility] Immunizations Immunization Date Given Site Status Last Updated Comments Source influenza virus 07/14/2013 completed Diony [facility] vaccine, [facility] inactivated Center pneumococcal 07/14/2013 completed Diony [facility] 23-valent vaccine [facility] Results Order Name Results Value Reference Date Interpretation Comments Source Range CHEMISTRY U Preg Negative Negative 08/13 Normal [facility] (08/13/2013 13:30:00) [place] URINALYSIS UA RBC 0-2 /HPF 0 - 2 08/13 Normal [facility] URINALYSIS UA WBC 3-5 /HPF None Seen 08/13 Normal [facility] URINALYSIS UA Sq Epi Few /LPF Few 08/13 Normal [facility] URINALYSIS Micro? Performed 08/13 Normal [facility] (08/13/2013 13:30:00) Center URINALYSIS UA Hyal Cast 0-2 0 - 2 08/13 Normal [facility] (08/13/2013 13:30:00) Center URINALYSIS UA Glucose 250 mg/dL Negative 08/13 [facility] URINALYSIS UA Blood Negative Negative 08/13 Normal [facility] (08/13/2013 13:30:00) Center URINALYSIS UA Ketones >=80 mg/dL Negative 08/13 [facility] URINALYSIS UA 0.2 EU/dL 0.1 - 1.0 08/13 Normal [facility] Urobilinogen /2012 [facility] URINALYSIS UA Nitrite Negative Negative 08/13 Normal [facility] (08/13/2013 13:30:00) [place] URINALYSIS UA Bili Small 1 Negative 08/13 ABN 1Result Comment: Interpret positive bilirubin results with caution. Confirmatory testing not possible due to the unavailability of reagent. Correlation with Medical *ABN* serum chemistry results recommended. [place] (08/13/2013 13:30:00) URINALYSIS UA Leuk Est Negative Negative 08/13 Normal [facility] (08/13/2013 13:30:00) [place] URINALYSIS UA Protein Negative Negative 08/13 Normal [facility] (08/13/2013 13:30:00) [place] URINALYSIS UA pH 6.0 5.0 - 8.0 08/13 Normal [facility] URINALYSIS UA Spec Grav 1.020 <=1.030 08/13 Normal [facility] URINALYSIS UA Color Yellow Yellow 08/13 Medical *NA* [place] (08/13/2013 13:30:00) URINALYSIS UA Turbidity Clear Clear 08/13 Normal [facility] (08/13/2013 13:30:00) [place] CHEMISTRY BE Mark 1 mMol/L -2-2 - 2 08/13 Normal [facility] CHEMISTRY pO2 Mark 29 mm[Hg] 20 - 49 08/13 Normal [facility] CHEMISTRY O2 Sat Mark 55.9 % 40.0 - 08/13 Normal [facility] 70.0 [facility] CHEMISTRY Temp Mark 37.0 Abby 08/13 [facility] CHEMISTRY HCO3 Mark 26 mMol/L 22 - 26 08/13 Normal [facility] CHEMISTRY pCO2 Mark 41 mm[Hg] 38 - 52 08/13 Normal [facility] CHEMISTRY pH Mark 7.41 7.28 - 08/13 Normal [facility] 7.42 [facility] CHEMISTRY eGFR 60 08/13 2Result Comment: The eGFR is calculated using the CKD-EPI formula. In most young, healthy individuals the eGFR will be >90 mL/ min/1.73m2. The eGFR declines with age. An eGFR of 60-89 may be normal in [facility] mL/min/1.7 some populations, particularly the elderly, for whom the CKD-EPI formula has not been extensively validated. Use of the eGFR is not recommended in the following populations: [address] Individuals with unstable creatinine concentrations, including [...] 25 meq/L 24 - 32 08/13 Normal [facility] CHEMISTRY Chloride Lvl 98 meq/L 95 - 109 08/13 Normal [facility] CHEMISTRY BUN 9 mg/dL 7 - 22 08/13 Normal [facility]2012 [facility] CHEMISTRY Calcium Lvl 9.1 mg/dL 8.5 - 10.5 08/13 Normal [facility] CHEMISTRY Glucose Lvl 301 mg/dL 70 - 99 08/13 [place] 3Interpretive Data: Adult reference range values reflect the clinical guidelines of the [place] [employer]. [facility] CHEMISTRY Potassium Lvl 3.8 meq/L 3.5 - 5.1 08/13 Normal [facility] CHEMISTRY Sodium Lvl 134 meq/L 135 - 145 08/13 LOW [facility] CHEMISTRY Creatinine 1.1 mg/dL 0.5 - 1.4 08/13 Normal [facility] CHEMISTRY Bili Total 0.6 mg/dL 0.2 - 1.3 08/13 Normal [facility] CHEMISTRY ASPARTATE 17 unit/L 0 - 37 08/13 Normal [facility] TRANSAMINASE [facility] CHEMISTRY ALANINE 22 unit/L 0 - 65 08/13 Normal [facility] AMINOTRANSFER [facility] CHEMISTRY Albumin Lvl 3.5 g/dL 3.5 - 5.0 08/13 Normal [facility] CHEMISTRY Alk Phos 130 unit/L 39 - 136 08/13 Normal [facility] CHEMISTRY Total Protein 7.8 g/dL 6.4 - 8.4 08/13 Normal [facility] CHEMISTRY B/C Ratio 8 6 - 25 08/13 Normal [facility] CHEMISTRY AGAP 14.8 meq/L 10.0 - 12 Normal [facility] 20.0 [facility] CHEMISTRY Globulin 4.3 g/dL 2.0 - 4.0 HI [facility] CHEMISTRY A/G Ratio 0.8 0.7 - 1.6 12 Normal [facility] HEMATOLOGY Monocytes # 0.8 K/CMM 0.0 - 0.8 12 Normal [facility] HEMATOLOGY Eosinophils # 0.0 K/CMM 0.0 - 0.5 08/13 Normal [facility] HEMATOLOGY Basophils # 0.0 K/CMM 0.0 - 0.2 08/13 Normal [facility] HEMATOLOGY Basophils 0.1 % 0.0 - 1.0 08/13 Normal [facility] HEMATOLOGY Lymphocytes # 1.4 K/CMM 1.0 - 5.5 08/13 [facility] HEMATOLOGY Segs-Bands # 10.5 K/CMM 1.5 - 8.1 08/13 [facility] HEMATOLOGY Monocytes 6.3 % 2.0 - 12.0 08/13 Normal [facility] HEMATOLOGY Eosinophils 0.2 % 0.0 - 4.0 08/13 Normal [facility] HEMATOLOGY Lymphocytes 11.3 % 20.0 - 1208 LOW [facility] 40.0 [facility] HEMATOLOGY Segs 82.1 % 45.0 - 12/08 [facility] 75.0 [facility] HEMATOLOGY WBC X 10x3 12.7 K/CMM 3.7 - 10.4 08/13 [facility] HEMATOLOGY Hct 37.0 % 36.0 - 12/08 Normal [facility] 48.0 [facility] HEMATOLOGY RBC X 10x6 4.36 M/CMM 4.20 - 12/08 Normal [facility] 5.40 /2012 [facility] HEMATOLOGY Hgb 12.6 g/dL 12.0 - 12/08 Normal [facility] 16.0 /2012 [facility] HEMATOLOGY MCV 84.8 fL 81.0 - 1208 [facility] 99.0 /2012 [facility] HEMATOLOGY MCH 28.8 pg 27.0 - 12 [facility] 31.0 /2012 [facility] HEMATOLOGY MCHC 34.0 g/dL 32.0 - 12/08 Normal [facility] 36.0 [facility] HEMATOLOGY Platelet 238 K/CMM 133 - [address] [facility] HEMATOLOGY MPV 9.5 fL 7.4 - 10.4 08/13 Normal Medical [facility] HEMATOLOGY RDW 13.1 % 11.5 - 08/13 Normal [facility] 14. Medical Center BEDSIDE Gluc POC Notify 07/26 [facility] GLUCOSE Comment 1 RN/ /2012 Medical TESTING Center BEDSIDE Glucose POC 274 mg/dL 70 - 99 07/26 [place] 1Interpretive [facility] GLUCOSE Data: Medical TESTING Center Upper Reportable Limit: 200 mg/dL. BEDSIDE Glucose POC 146 mg/dL 70 - 99 07/15 [place] 2Interpretive [facility] GLUCOSE Data: Medical TESTING Center Upper Reportable Limit: 200 mg/dL. BEDSIDE Gluc POC Notify 07/15 [facility] GLUCOSE Comment 1 RN/ /2012 Medical TESTING Center BEDSIDE Glucose POC 140 mg/dL 70 - 99 07/14 [place] 3Interpretive [facility] GLUCOSE Data: Medical TESTING Center Upper Reportable Limit: 200 mg/dL. BEDSIDE Gluc POC Notify 07/14 [facility] GLUCOSE Comment 1 RN/ [facility] TESTING Center BEDSIDE Gluc POC Notify 07/14 [facility] GLUCOSE Comment 1 RN/ /2012 Medical TESTING Center BEDSIDE Glucose POC 44 mg/dL 70 - 99 07/14 LOW 4Interpretive [facility] GLUCOSE Data: Medical TESTING Center Upper Reportable Limit: 200 mg/dL. IMMUNOLOGY [place]-HIV Negative Negative 07/14 [facility] 09/07 [facility] *NA* Center (07/14/2013 00:27:00) IMMUNOLOGY [place]-Hep C Negative Negative 07/14 [facility] (07[facility]14[facility]2013 00:27:00) CHEMISTRY eGFR 109 07/13 5Result Comment: The eGFR is calculated using the CKD-EPI formula. In most young, healthy individuals the eGFR will be >90 mL/ min/1.73m2. The eGFR declines with age. An eGFR of 60-89 may be normal in [facility] mL/min/1. some populations, particularly the elderly, for [...] 135 meq/L 135 - 145 07/13 Normal [facility] CHEMISTRY Chloride Lvl 95 meq/L 95 - 109 07/13 Normal [facility] CHEMISTRY AGAP 16.5 meq/L 10.0 - 07/13 Normal [facility] 20.0 [facility] CHEMISTRY Glucose Lvl 322 mg/dL 70 - 99 07/13 [place] 8Interpretive Data: Adult reference range values reflect the clinical guidelines of the [place] [employer]. [facility] CHEMISTRY Creatinine 0.6 mg/dL 0.5 - 1.4 07/13 Normal [facility] CHEMISTRY BUN 6 mg/dL 7 - 22 07/13 LOW 2012 [facility] CHEMISTRY Calcium Lvl 8.6 mg/dL 8.5 - 10.5 07/13 Normal [facility] CHEMISTRY CO2 27 meq/L 24 - 32 07/13 Normal [facility] CHEMISTRY Potassium Lvl 3.5 meq/L 3.5 - 5.1 07/13 Normal [facility] INFECTIOUS C difficile Negative 1 Negative 07/13 Normal 1Interpretive Data: 2Duche illumigene Clostridium difficile assay utilizes loop-mediated isothermal DNA amplification (LAMP) technology to detect a 204 bp region of the tcdA gene within the PaLoc gene [facility] segment present in all known toxigenic C. difficile strains. [facility] (07/13/2013 00:00:59) [place] The assay utilizes FDA cleared IVD reagents. Performance characteristics have been verified by the [facility] within the [facility]. The [facility] is authorized under the Clinical Laboratory Improvement Amendment of 1988 (CLIA-88) to perform high complexity testing. CHEMISTRY Lactic Acid 1.9 mMol/L 0.5 - 2.2 07/12 Normal [facility] CHEMISTRY eGFR 88 07/12 6Result Comment: The eGFR is calculated using the CKD-EPI formula. In most young, healthy individuals the eGFR will be >90 mL/ min/1.73m2. The eGFR declines with age. An eGFR of 60-89 may be normal in [facility] mL/min/1. some populations, particularly the elderly, for whom the CKD-EPI formula has not been extensively validated. Use of the eGFR is not recommended in the following populations: Medical [facility] Individuals with unstable creatinine concentrations, including [...] CHEMISTRY Troponin-I null 0.00 - 11 Normal [facility] 0.40 [facility] HEMATOLOGY Basophils # 0.0 K/CMM 0.0 - 0.2 07/12 Normal [facility] HEMATOLOGY Eosinophils # 0.3 K/CMM 0.0 - 0.5 07/12 Normal [facility] HEMATOLOGY Monocytes # 1.0 K/CMM 0.0 - 0.8 07/12 HI [facility] HEMATOLOGY Lymphocytes # 3.0 K/CMM 1.0 - 5.5 07/12 Normal [facility] HEMATOLOGY Segs-Bands # 6.4 K/CMM 1.5 - 8.1 07/12 Normal [facility] HEMATOLOGY Basophils 0.4 % 0.0 - 1.0 07/12 Normal [facility] HEMATOLOGY Eosinophils 2.8 % 0.0 - 4.0 07/12 Normal [facility] HEMATOLOGY Plt Morph Normal 07/12 [facility] (07/12/2013 16:29:10) [place] HEMATOLOGY RBC Morph Normal 07/12 [facility] (07/12/2013 16:29:10) Center HEMATOLOGY Monocytes 9.4 % 2.0 - 12.0 07/12 Normal [facility] HEMATOLOGY Lymphocytes 27.9 % 20.0 - 07/12 Normal [place] 40.0 [facility] HEMATOLOGY Segs 59.5 % 45.0 - 07/12 Normal [facility] 75.0 [facility] HEMATOLOGY MCV 85.3 fL 81.0 - 07/12 [facility] 99.0 [facility] HEMATOLOGY Hct 41.2 % 36.0 - 07/12 Normal [place] 48.0 [facility] HEMATOLOGY Hgb 13.6 g/dL 12.0 - 07/12 Normal [facility] 16.0 [facility] HEMATOLOGY RBC X 10x6 4.84 M/CMM 4.20 - 11 Normal [facility] 5.40 /2012 Medical [place] HEMATOLOGY MPV 9.4 fL 7.4 - 10.4 07/12 Normal [facility] HEMATOLOGY Platelet 225 K/CMM 133 - 450 07/12 Normal [facility] HEMATOLOGY MCH 28.1 pg 27.0 - 07/12 Normal [facility] 31.0 Medical [place] HEMATOLOGY MCHC 33.0 g/dL 32.0 - 07/12 Normal [facility] 36.0 /2012 [facility] HEMATOLOGY RDW 12.7 % 11.5 - 07/12 Normal [facility] 14.5 [facility] HEMATOLOGY WBC X 10x3 10.7 K/CMM 3.7 - 10.4 07/12 [place] [facility] CHEMISTRY AGAP 12.4 meq/L 10.0 - 07/12 Normal [facility] . [facility] CHEMISTRY Calcium Lvl 8.8 mg/dL 8.5 - 10.5 07/12 Normal [facility] CHEMISTRY Chloride Lvl 102 meq/L 95 - 109 07/12 Normal [facility] CHEMISTRY Potassium Lvl 3.4 meq/L 3.5 - 5.1 07/12 LOW [facility] CHEMISTRY CO2 30 meq/L 24 - 32 07/12 Normal [facility] CHEMISTRY Sodium Lvl 141 meq/L 135 - 145 07/12 Normal [facility] CHEMISTRY Creatinine 0.8 mg/dL 0.5 - 1.4 07/12 Normal [facility] CHEMISTRY BUN 6 mg/dL 7 - 22 07/12 LOW [facility] CHEMISTRY Glucose Lvl 163 mg/dL 70 - 99 07/12 [place] 9Interpretive Data: Adult reference range values reflect the clinical guidelines of the [place] [employer]. Medical Center IMMUNOLOGY CDC-HIV 1/2 Negative Negative 07/12 Medical *NA* Center (07/12/2013 16:02:06) CHEMISTRY Calcium Lvl 8.4 mg/dL 8.5 - 10.5 07/12 LOW [facility] CHEMISTRY AGAP 10.4 meq/L 10.0 - 07/12 Normal [facility] CHEMISTRY eGFR 76 07/12 7Result Comment: The eGFR is calculated using the CKD-EPI formula. In most young, healthy individuals the eGFR will be >90 mL/ min/1.73m2. The eGFR declines with age. An eGFR of 60-89 may be normal in [facility] mL/min/1.7 some populations, particularly the elderly, for whom the CKD-EPI formula has not been extensively validated. Use of the eGFR is not recommended in the following populations: [address] Individuals with unstable creatinine concentrations, including [...] 140 meq/L 135 - 145 07/12 Normal [facility] CHEMISTRY Chloride Lvl 103 meq/L 95 - 109 07/12 Normal [facility] CHEMISTRY Potassium Lvl 3.4 meq/L 3.5 - 5.1 07/12 LOW [facility] CHEMISTRY BUN 9 mg/dL 7 - 22 07/12 Normal [facility] CHEMISTRY Creatinine 0.9 mg/dL 0.5 - 1.4 07/12 Normal [facility] CHEMISTRY Glucose Lvl 296 mg/dL 70 - 99 07/12 [place] 10Interpretive Data: Adult reference range values reflect the clinical guidelines of the [place] [employer]. [facility] CHEMISTRY CO2 30 meq/L 24 - 32 07/12 Normal [facility] CHEMISTRY Troponin-I null 0.00 - 11 Normal [facility] 0.40 [facility] CHEMISTRY Lipase Lvl 76 unit/L 73 - 393 07/12 Normal [facility] CHEMISTRY B/C Ratio 11 6 - 25 07/12 Normal [facility] CHEMISTRY ASPARTATE 25 unit/L 0 - 37 07/12 Normal [facility] CHEMISTRY Bili Total 0.4 mg/dL 0.2 - 1.3 07/12 Normal [facility] CHEMISTRY Alk Phos 119 unit/L 39 - 136 07/12 Normal [facility] CHEMISTRY Albumin Lvl 3.9 g/dL 3.5 - 5.0 11/06 Normal [facility] CHEMISTRY ALANINE 29 unit/L 0 - 65 07/12 Normal [facility] AMINO [facility] CHEMISTRY Total Protein 8.1 g/dL 6.4 - 8.4 07/12 Normal [facility] CHEMISTRY Globulin 4.2 g/dL 2.0 - 4.0 07/12 HI [facility] CHEMISTRY A/G Ratio 0.9 0.7 - 1.6 07/12 Normal 2012 [facility] HEMATOLOGY Monocytes # 0.6 K/CMM 0.0 - 0.8 07/12 Normal [facility] HEMATOLOGY Segs-Bands # 9.5 K/CMM 1.5 - 8.1 07/12 HI 2012 [facility] HEMATOLOGY Eosinophils # 0.2 K/CMM 0.0 - 0.5 07/12 Normal [facility] HEMATOLOGY Lymphocytes # 2.1 K/CMM 1.0 - 5.5 07/12 Normal [facility] HEMATOLOGY Basophils 0.2 % 0.0 - 1.0 07/12 Normal [facility] HEMATOLOGY Neut Vac Slight None Seen 07/12 ABN [facility] *ABN* [place] (07/12/2013 03:30:00) HEMATOLOGY Hypochrom Slight None Seen 07/12 Normal [facility] (07/12/2013 03:30:00) [place] HEMATOLOGY Basophils # 0.0 K/CMM 0.0 - 0.2 07/12 Normal [facility] HEMATOLOGY RBC Morph Normal 07/12 Normal [facility] (07/12/2013 03:30:00) [place] HEMATOLOGY Eosinophils 1.6 % 0.0 - 4.0 07/12 Normal [facility] HEMATOLOGY Monocytes 4.6 % 2.0 - 12.0 07/12 Normal [facility] HEMATOLOGY Segs 76.6 % 45.0 - 07/12 HI [facility] 75.0 [facility] HEMATOLOGY Lymphocytes 17.0 % 20.0 - 07/12 LOW [facility] 40.0 [facility] HEMATOLOGY Plt Morph Normal 07/12 Normal [facility] (07/12/2013 03:30:00) Center HEMATOLOGY MCHC 32.4 g/dL 32.0 - 07/12 Normal [place] 36.0 [facility] HEMATOLOGY MCH 27.4 pg 27.0 - 07/12 Normal [facility] 31.0 /2012 [facility] HEMATOLOGY RDW 12.7 % 11.5 - 07/12 Normal [facility] 14.5 /2012 [facility] HEMATOLOGY Platelet 235 K/CMM 133 - 450 07/12 Normal [facility] HEMATOLOGY MPV 9.4 fL 7.4 - 10.4 07/12 Normal [facility] HEMATOLOGY Hgb 12.9 g/dL 12.0 - 07/12 Normal [facility] 16.0 /2012 [facility] HEMATOLOGY MCV 84.3 fL 81.0 - 07/12 Normal [facility] 99.0 /2012 [facility] HEMATOLOGY Hct 39.6 % 36.0 - 07/12 Normal [facility] 48.0 /2012 [facility] HEMATOLOGY WBC X 10x3 12.4 K/CMM 3.7 - 10.4 07/12 HI [facility] HEMATOLOGY RBC X 10x6 4.70 M/CMM 4.20 - 07/12 Normal [facility] 5.40 [facility] CHEMISTRY U Preg Negative Negative 07/12 Normal [facility] (07/12/2013 03:00:00) Center URINALYSIS UA Leuk Est Negative Negative 07/12 Normal [facility] (07/12/2013 03:00:00) Center URINALYSIS UA 0.2 EU/dL 0.1 - 1.0 07/12 Normal [facility] Urobilinogen [facility] URINALYSIS UA Nitrite Negative Negative 07/12 Normal [facility] (07/12/2013 03:00:00) Center URINALYSIS UA Bili Negative Negative 07/12 [facility] *NA* Center (07/12/2013 03:00:00) URINALYSIS UA pH 6.0 5.0 - 8.0 07/12 Normal [facility] URINALYSIS UA Protein Negative Negative 07/12 Normal [facility] mg/dL [facility] URINALYSIS UA Glucose >=1000 Negative 07/12 ABN [facility] mg/dL [facility] URINALYSIS UA Ketones 15 mg/dL Negative 07/12 ABN [facility] URINALYSIS UA Spec Grav 1.020 <=1.030 07/12 Normal [facility] URINALYSIS UA Blood Negative Negative 07/12 Normal [facility] (07/12/2013 03:00:00) [place] URINALYSIS UA Color Yellow Yellow 07/12 [facility] *NA* [place] (07/12/2013 03:00:00) URINALYSIS UA Turbidity Clear Clear 07/12 Normal [facility] (07/12/2013 03:00:00) [place] URINALYSIS UA RBC 0-2 /HPF 0 - 2 07/12 Normal [facility] URINALYSIS UA WBC 3-5 /HPF None Seen 07/12 Normal 2012 [facility] URINALYSIS UA Sq Epi Many /LPF Few 07/12 ABN [facility] URINALYSIS UA Bacteria Few /HPF None Seen 07/12 Normal [facility] URINALYSIS UA [place] Yeast Moderate None Seen 07/12 [facility] URINALYSIS Micro? Performed 07/12 Normal [facility] (07/12/2013 03:00:00) [place] Abdomen/Pel Abdomen/Pelvi EXAM: CT ABDOMEN WITH CONTRAST 07/12 - [facility] vis w s w contrast - Medical contrast CT CT EXAM: CT PELVIS WITH CONTRAST This report was dictated by a [employer]opharm[employer] Rep/Fellow. I have personally reviewed the images as [...] mg/dL 70 - 99 04/03 HI 1Interpretive [facility] GLUCOSE Lifscn /2012 Data: Medical [facility]ING Center Upper Reportable Limit: 200 mg/dL. BEDSIDE Comment2 Sliding 04/03 [facility] [place] GLUCOSE Scale /2012 [facility] BEDSIDE Comment1 Notify 04/03 [facility] GLUCOSE RN/MD /2012 [facility] BEDSIDE Comment1 Notify 04/03 [facility] GLUCOSE RN/MD /2013 [facility] BEDSIDE Gluc POC 198 mg/dL 70 - 99 04/03 HI 2Interpretive [facility] GLUCOSE Lifscn Data: [facility] [place] Upper Reportable Limit: 200 mg/dL. BEDSIDE Comment2 Sliding 04/03 NA [facility] GLUCOSE Scale [facility] TESTING Center Abdomen 2 Abdomen 2 EXAM: XR ABDOMEN 1 VIEW 04/03 - [facility] views - Medical Center DATE: March 25 [...] Cho MD. BEDSIDE Comment2 Sliding 04/03 NA [facility] GLUCOSE Scale /2012 [facility] TESTING Center BEDSIDE Comment1 Notify 04/03 NA [facility] GLUCOSE RN/ /2012 [facility] BEDSIDE Gluc POC 182 mg/dL 70 - 99 04/03 HI 3Interpretive [facility] GLUCOSE Lifscn Data: [facility] Upper Reportable Limit: 200 mg/dL. CHEMISTRY Troponin-T null 0.000 - 04/03 Normal [facility] 0.100 [facility] CHEMISTRY Troponin-I null 0.00 - 04/03 Normal [facility] 0.40 [facility] CHEMISTRY Total CK 41 unit/L 12 - 191 04/03 Normal [facility] CHEMISTRY Creatinine 0.6 mg/dL 0.5 - 1.4 04/03 Normal [facility] Lvl [facility] CHEMISTRY Sodium Lvl 137 meq/L 135 - 145 04/03 Normal [facility] CHEMISTRY CO2 25 meq/L 24 - 32 04/03 Normal [facility] CHEMISTRY Calcium Lvl 8.2 mg/dL 8.5 - 10.5 04/03 LOW [facility] CHEMISTRY AGAP 17.9 meq/L 10.0 - 04/03 Normal [facility] 20.0 [facility] CHEMISTRY Potassium Lvl 3.9 meq/L 3.5 - 5.1 04/03 Normal [facility] CHEMISTRY Chloride Lvl 98 meq/L 95 - 109 04/03 Normal [facility] CHEMISTRY Glucose Lvl 266 mg/dL 70 - 99 04/03 HI 6Interpretive Data: Adult reference range values reflect the clinical guidelines of the [place] [employer]. [facility] CHEMISTRY BUN 3 mg/dL 7 - 22 04/03 LOW [facility] CHEMISTRY eGFR 109 04/03 NA 4Result Comment: The eGFR is calculated using the CKD-EPI formula. In most young, healthy individuals the eGFR will be > 90 mL/min/1.73m2. The eGFR declines with age. An eGFR of 60-89 may be normal in [facility] mL/min/1.7 some populations, particularly the elderly, for whom the CKD-EPI formula has not been extensively validated. Use of the eGFR is not recommended in the following populations: [place] [address] Center Individuals with unstable creatinine concentrations, including [...] HEMATOLOGY Hgb 10.5 g/dL 12.0 - 04/03 [facility] 16.0 [facility] HEMATOLOGY RBC 4.22 M/CMM 4.20 - 04/03 Normal [facility] 5.40 /2012 [facility] HEMATOLOGY WBC 10.3 K/CMM 3.7 - 10.4 04/03 Normal [facility] HEMATOLOGY Hct 33.5 % 36.0 - 04/03 [facility] 48.0 [facility] HEMATOLOGY MPV 8.8 fL 7.4 - 10.4 04/03 Normal [facility] HEMATOLOGY Platelet 276 K/CMM 133 - 450 04/03 Normal [facility] HEMATOLOGY RDW 18.7 % 11.5 - 04/03 HI [facility] 14.5 [facility] HEMATOLOGY MCHC 31.2 g/dL 32.0 - 04/03 [facility] 36.0 [facility] HEMATOLOGY MCH 24.8 pg 27.0 - 04/03 [facility] 31.0 [facility] HEMATOLOGY MCV 79.5 fL 81.0 - 04/03 LOW [place] 99.0 [facility] HEMATOLOGY Segs 58.6 % 45.0 - 04/03 Normal [place] 75.0 [facility] HEMATOLOGY Lymphocytes 29.9 % 20.0 - 04/03 Normal [place] 40.0 [facility] HEMATOLOGY Basophils 1.3 % 0.0 - 1.0 04/03 HI [facility] HEMATOLOGY Lymphocytes # 3.1 K/CMM 1.0 - 5.5 04/03 Normal [facility] HEMATOLOGY Segs-Bands # 6.0 K/CMM 1.5 - 8.1 04/03 Normal [facility] HEMATOLOGY Eosinophils 2.8 % 0.0 - 4.0 04/03 Normal [facility] HEMATOLOGY Eosinophils # 0.3 K/CMM 0.0 - 0.5 04/03 Normal [facility] HEMATOLOGY Monocytes # 0.8 K/CMM 0.0 - 0.8 04/03 Normal [facility] HEMATOLOGY Basophils # 0.1 K/CMM 0.0 - 0.2 04/03 Normal [facility] HEMATOLOGY Monocytes 7.4 % 2.0 - 12.0 04/03 Normal [facility] CHEMISTRY Troponin-I null 0.00 - 04/03 Normal [facility] 0.40 [facility] CHEMISTRY Total CK 51 unit/L 12 - 191 04/03 Normal [facility] CHEMISTRY Troponin-T null 0.000 - 04/03 Normal 0.100 [facility] CHEMISTRY Bili Direct 0.1 mg/dL 0.0 - 0.3 04/03 Normal [facility] CHEMISTRY Bili Total 0.4 mg/dL 0.2 - 1.3 04/03 Normal [facility] CHEMISTRY Bili Indirect 0.3 mg/dL 0.0 - 1.0 04/03 Normal [facility] CHEMISTRY ALT 22 unit/L 0 - 65 04/03 Normal [facility] CHEMISTRY AST 31 unit/L 0 - 37 04/03 Normal [facility] CHEMISTRY Lipase Lvl 54 unit/L 73 - 393 04/03 LOW [facility] CHEMISTRY Troponin-I null 0.00 - 04/02 Normal [place] 0.40 [facility] CHEMISTRY Total CK 24 unit/L 12 - 191 04/02 Normal [facility] CHEMISTRY AGAP 17.5 meq/L 10.0 - 04/02 Normal [facility] 20.0 [facility] CHEMISTRY eGFR 88 04/02 NA 5Result Comment: The eGFR is calculated using the CKD-EPI formula. In most young, healthy individuals the eGFR will be > 90 mL/min/1.73m2. The eGFR declines with age. An eGFR of 60-89 may be normal in [facility] mL/min/1.7 some populations, particularly the elderly, for whom the CKD-EPI formula has not been extensively validated. Use of the eGFR is not recommended in the following populations: [place] [id number] Center Individuals with unstable creatinine concentrations, including [...] 0.8 mg/dL 0.5 - 1.4 04/02 Normal [facility] Lvl [facility] CHEMISTRY Potassium Lvl 3.5 meq/L 3.5 - 5.1 04/02 Normal [facility] CHEMISTRY Chloride Lvl 97 meq/L 95 - 109 04/02 Normal [facility] CHEMISTRY Glucose Lvl 163 mg/dL 70 - 99 04/02 HI 7Interpretive Data: Adult reference range values reflect the clinical guidelines of the [place] [employer]. [facility] CHEMISTRY BUN 2 mg/dL 7 - 22 04/02 LOW [facility] CHEMISTRY Sodium Lvl 136 meq/L 135 - 145 04/02 Normal [facility] CHEMISTRY Calcium Lvl 8.6 mg/dL 8.5 - 10.5 04/02 Normal [facility] CHEMISTRY CO2 25 meq/L 24 - 32 04/02 Normal [facility] HEMATOLOGY Platelet 378 K/CMM 133 - 450 04/02 Normal [facility] HEMATOLOGY MCHC 33.4 g/dL 32.0 - 04/02 Normal [facility] 36.0 [facility] HEMATOLOGY RDW 17.3 % 11.5 - 04/02 HI [facility] 14. [facility] HEMATOLOGY MCV 76.0 fL 81.0 - 04/02 [facility] [place] 99.0 /2012 [facility] HEMATOLOGY MCH 25.4 pg 27.0 - 04/02 [facility] 31.0 /2012 [facility] HEMATOLOGY Hct 34.2 % 36.0 - 04/02 [facility] 48.0 /2012 [facility] HEMATOLOGY RBC 4.50 M/CMM 4.20 - 04/02 Normal [facility] 5.40 /2012 [facility] HEMATOLOGY Hgb 11.4 g/dL 12.0 - 04/02 [facility] 16.0 [facility] HEMATOLOGY WBC 9.0 K/CMM 3.7 - 10.4 04/02 Normal [facility] HEMATOLOGY MPV 8.4 fL 7.4 - 10.4 04/02 Normal [facility] HEMATOLOGY Microcyte 2+ None Seen 04/02 ABN [facility] *ABN* Center (04/02/2013 17:09:00) HEMATOLOGY Basophils # 0.1 K/CMM 0.0 - 0.2 04/02 Normal [facility] HEMATOLOGY Eosinophils # 0.1 K/CMM 0.0 - 0.5 04/02 Normal [facility] HEMATOLOGY Monocytes # 0.7 K/CMM 0.0 - 0.8 04/02 Normal [facility] HEMATOLOGY Lymphocytes # 1.4 K/CMM 1.0 - 5.5 04/02 Normal [facility] HEMATOLOGY Segs-Bands # 6.7 K/CMM 1.5 - 8.1 04/02 Normal [facility] HEMATOLOGY Basophils 1.3 % 0.0 - 1.0 04/02 HI [facility] HEMATOLOGY Lymphocytes 15.2 % 20.0 - 04/02 [facility] 40.0 [facility] HEMATOLOGY Segs 74.3 % 45.0 - 04/02 [facility] 75.0 [facility] HEMATOLOGY Eosinophils 1.6 % 0.0 - 4.0 04/02 Normal [facility] HEMATOLOGY Monocytes 7.6 % 2.0 - 12.0 04/02 [facility] Chest 1view Chest 1view EXAM: XR CHEST 1 VIEW 04/02 - - [facility] Center DATE: 2013-04-02 1638 hours Read by: [...] mg/dL 70 - 99 03/09 HI 1Interpretive [facility] GLUCOSE Lifscn Data: [facility] Upper Reportable Limit: 200 mg/dL. BEDSIDE Comment1 Notify 03/09 NA [facility] GLUCOSE RN/ Medical [facility] Center CHEMISTRY eGFR 88 03/09 NA 4Result Comment: The eGFR is calculated using the CKD-EPI formula. In most young, healthy individuals the eGFR will be > 90 mL/min/1.73m2. The eGFR declines with age. An eGFR of 60-89 may be normal in [facility] mL/min/1.7 some populations, particularly the elderly, for whom the CKD-EPI formula has not been extensively validated. Use of the eGFR is not recommended in the following populations: [place] [id number] Center Individuals with unstable creatinine concentrations, including [...] 7 mg/dL 7 - 22 03/09 Normal [facility] CHEMISTRY Creatinine 0.8 mg/dL 0.5 - 1.4 03/09 Normal [facility] Lvl [facility] CHEMISTRY Sodium Lvl 138 meq/L 135 - 145 03/09 Normal [facility] CHEMISTRY Potassium Lvl 4.7 meq/L 3.5 - 5.1 03/09 Normal [facility] CHEMISTRY Chloride Lvl 104 meq/L 95 - 109 03/09 Normal [facility] CHEMISTRY CO2 23 meq/L 24 - 32 03/09 LOW [facility] CHEMISTRY Bili Total 0.2 mg/dL 0.2 - 1.3 07/ Normal [facility] CHEMISTRY AST 22 unit/L 0 - 37 / Normal [facility] CHEMISTRY Total Protein 4.8 g/dL 6.4 - 8.4 07/ LOW [facility] CHEMISTRY Calcium Lvl 7.4 mg/dL 8.5 - 10.5 03/09 LOW [facility]2012 [facility] CHEMISTRY Albumin Lvl 1.9 g/dL 3.5 - 5.0 / LOW [facility] CHEMISTRY Glucose Lvl 192 mg/dL 70 - 99 07/ [place] 7Interpretive Data: Adult reference range values reflect the clinical guidelines of the [place] [employer]. [facility] CHEMISTRY Alk Phos 162 unit/L 39 - 136 03/09 HI [facility] CHEMISTRY ALT 18 unit/L 0 - 65 03/09 Normal [facility] CHEMISTRY A/G Ratio 0.7 0.7 - 1.6 03/09 Normal [facility] CHEMISTRY Globulin 2.9 g/dL 2.0 - 4.0 03/09 Normal [facility] CHEMISTRY AGAP 15.7 meq/L 10.0 - 07 Normal [facility] 20.0 [facility] CHEMISTRY B/C Ratio 9 6 - 25 03/09 Normal [facility]2012 [facility] HEMATOLOGY Eosinophils 1.9 % 0.0 - 4.0 / Normal [facility] HEMATOLOGY Basophils 1.0 % 0.0 - 1.0 03/09 Normal [facility] HEMATOLOGY Anisocyte 1+ None Seen 03/09 ABN Medical *ABN* Center (03/09/2013 01:09:00) HEMATOLOGY Lymphocytes # 2.0 K/CMM 1.0 - 5.5 07/ Normal [facility] HEMATOLOGY Monocytes # 0.6 K/CMM 0.0 - 0.8 07/ Normal [facility]2012 [facility] HEMATOLOGY Eosinophils # 0.1 K/CMM 0.0 - 0.5 07/ Normal [facility]2012 [facility] HEMATOLOGY Basophils # 0.1 K/CMM 0.0 - 0.2 07/ Normal [facility] HEMATOLOGY Segs-Bands # 4.6 K/CMM 1.5 - 8.1 07/ Normal /2012 [facility] HEMATOLOGY Segs 62.8 % 45.0 - 07/ Normal [place] 75.0 /2012 Medical Center HEMATOLOGY Lymphocytes 26.4 % 20.0 - 07/ Normal [place] 40.0 /2012 Medical Center HEMATOLOGY Monocytes 7.9 % 2.0 - 12.0 07/ Normal [facility] HEMATOLOGY RDW 20.7 % 11.5 - 07/04 HI [place] 14.5 /2012 Medical Center HEMATOLOGY Platelet 304 K/CMM 133 - 450 07/ Normal /2012 [facility] HEMATOLOGY MPV 8.0 fL 7.4 - 10.4 07/ Normal [facility] HEMATOLOGY Hct 24.9 % 36.0 - 07/ LOW [place] 48.0 /2012 [facility] HEMATOLOGY MCV 79.3 fL 81.0 - 07/ [facility] [place] 99.0 /2012 [facility] HEMATOLOGY MCH 24.7 pg 27.0 - 07 LOW [facility] 31.0 /2012 Medical Center HEMATOLOGY MCHC 31.2 g/dL 32.0 - 07 LOW [place] 36.0 /2012 [facility] HEMATOLOGY RBC 3.14 M/CMM 4.20 - 07/ LOW [place] 5.40 /2012 Medical Center HEMATOLOGY Hgb 7.8 g/dL 12.0 - 07/ LOW [facility] 16.0 /2012 [facility] HEMATOLOGY WBC 7.4 K/CMM 3.7 - 10.4 07 Normal [facility] BEDSIDE Gluc POC 131 mg/dL 70 - 99 03/09 HI 2Interpretive [facility] GLUCOSE ak Data: [facility] Upper Reportable Limit: 200 mg/dL. BEDSIDE Comment1 Notify 03/09 NA [facility] GLUCOSE RN/MD /2012 [facility] BEDSIDE Comment1 Notify 03/09 NA [facility] GLUCOSE RN/MD /2012 [facility] BEDSIDE Gluc POC 155 mg/dL 70 - 99 03/09 [place] 3Interpretive [facility] GLUCOSE [place] Data: [facility] Upper Reportable Limit: 200 mg/dL. CHEMISTRY Magnesium Lvl 1.5 mg/dL 1.8 - 2.4 03/08 LOW [facility] CHEMISTRY A/G Ratio 0.7 0.7 - 1.6 03/08 Normal [facility] CHEMISTRY B/C Ratio 8 6 - 25 03/08 Normal [facility] CHEMISTRY Globulin 2.8 g/dL 2.0 - 4.0 03/08 Normal [facility] CHEMISTRY AGAP 15.8 meq/L 10.0 - 03/08 Normal [facility] 20.0 /2012 [facility] CHEMISTRY Potassium Lvl 3.8 meq/L 3.5 - 5.1 03/08 Normal [facility] CHEMISTRY Chloride Lvl 100 meq/L 95 - 109 03/08 Normal [facility] CHEMISTRY CO2 23 meq/L 24 - 32 03/08 LOW [facility] CHEMISTRY Total Protein 4.8 g/dL 6.4 - 8.4 03/08 LOW [facility] CHEMISTRY AST 10 unit/L 0 - 37 03/08 Normal [facility] CHEMISTRY Calcium Lvl 7.6 mg/dL 8.5 - 10.5 03/08 LOW [facility]2012 [facility] CHEMISTRY Bili Total 0.3 mg/dL 0.2 - 1.3 03/08 Normal [facility] CHEMISTRY eGFR 88 03/08 NA 5Result Comment: The eGFR is calculated using the CKD-EPI formula. In most young, healthy individuals the eGFR will be > 90 mL/min/1.73m2. The eGFR declines with age. An eGFR of 60-89 may be normal in [facility] mL/min/1. some populations, particularly the elderly, for whom the CKD-EPI formula has not been extensively validated. Use of the eGFR is not recommended in the following populations: [address] Individuals with unstable creatinine concentrations, including [...] the clinical guidelines of the [place] [employer]. [facility] CHEMISTRY BUN 6 mg/dL 7 - 22 03/08 LOW [facility] CHEMISTRY Creatinine 0.8 mg/dL 0.5 - 1.4 03/08 Normal [facility] CHEMISTRY Sodium Lvl 135 meq/L 135 - 145 07 Normal [facility] CHEMISTRY Alk Phos 173 unit/L 39 - 136 07 HI [facility] CHEMISTRY ALT 16 unit/L 0 - 65 03/08 Normal [facility] CHEMISTRY Albumin Lvl 2.0 g/dL 3.5 - 5.0 03/08 LOW [facility] CHEMISTRY Lipase Lvl 54 unit/L 73 - 393 03/08 LOW [facility] CHEMISTRY Amylase Lvl 30 unit/L 25 - 115 / Normal [facility] HEMATOLOGY Basophils # 0.1 K/CMM 0.0 - 0.2 03/08 Normal [facility] HEMATOLOGY Anisocyte 1+ None Seen 03/08 ABN [facility] Center (03/08/2013 03:01:00) HEMATOLOGY Microcyte 1+ None Seen 03/08 [facility] *[facility]* Center (03/08/2013 03:01:00) HEMATOLOGY Eosinophils # 0.2 K/CMM 0.0 - 0.5 / Normal [facility] HEMATOLOGY Monocytes # 0.8 K/CMM 0.0 - 0.8 03/08 Normal [facility] HEMATOLOGY Lymphocytes 34.2 % 20.0 - 07 Normal [facility] 40.0 [facility] HEMATOLOGY Segs 53.3 % 45.0 - 07 [facility] 75.0 [facility] HEMATOLOGY Lymphocytes # 3.0 K/CMM 1.0 - 5.5 07 Normal [facility] HEMATOLOGY Segs-Bands # 4.7 K/CMM 1.5 - 8.1 07 Normal [facility] HEMATOLOGY Basophils 0.9 % 0.0 - 1.0 07/ Normal [facility] HEMATOLOGY Eosinophils 2.6 % 0.0 - 4.0 07/ Normal [facility] HEMATOLOGY Monocytes 9.0 % 2.0 - 12.0 07/ Normal [facility] HEMATOLOGY Hgb 7.9 g/dL 12.0 - 0703 LOW [facility] 16.0 [facility] HEMATOLOGY RBC 3.12 M/CMM 4.20 - 07 [facility] 5.40 /2012 [facility] HEMATOLOGY MPV 8.0 fL 7.4 - 10.4 07/ Normal [facility] HEMATOLOGY Platelet 294 K/CMM 133 - 450 07/ Normal [facility] HEMATOLOGY MCH 25.3 pg 27.0 - 07/ [facility] 31.0 /2012 Medical [place] HEMATOLOGY MCV 79.7 fL 81.0 - 07/ [facility] 99.0 /2012 Medical [place] HEMATOLOGY Hct 24.9 % 36.0 - 07/ [facility] 48.0 /2012 Medical [place] HEMATOLOGY WBC 8.8 K/CMM 3.7 - 10.4 07/ Normal [facility] HEMATOLOGY RDW 21.4 % 11.5 - 07/03 [facility] 14.5 /2012 [facility] HEMATOLOGY MCHC 31.8 g/dL 32.0 - 07/ [facility] 36.0 /2012 [facility] CHEMISTRY Troponin-I null 0.00 - 07 Normal [facility] 0.40 [facility] CHEMISTRY Total CK 26 unit/L 12 - 191 07 Normal [facility] CHEMISTRY A/G Ratio 0.6 0.7 - 1.6 07/ LOW [facility] CHEMISTRY Bili Total 0.6 mg/dL 0.2 - 1.3 07 Normal [facility] CHEMISTRY Bili Direct 0.3 mg/dL 0.0 - 0.3 07 Normal [facility] CHEMISTRY Alk Phos 190 unit/L 39 - 136 07/ [facility] CHEMISTRY Total Protein 5.2 g/dL 6.4 - 8.4 07 [facility] CHEMISTRY Globulin 3.2 g/dL 2.0 - 4.0 07/ Normal [facility] CHEMISTRY Bili Indirect 0.3 mg/dL 0.0 - 1.0 07/ Normal [facility] CHEMISTRY AST 11 unit/L 0 - 37 07/ Normal [facility] CHEMISTRY Albumin Lvl 2.0 g/dL 3.5 - 5.0 07/ LOW [facility] CHEMISTRY ALT 19 unit/L 0 - 65 07/ Normal [facility] CHEMISTRY Amylase Lvl 26 unit/L 25 - 115 07/ Normal [facility] CHEMISTRY Lipase Lvl 49 unit/L 73 - 393 07 [facility] HEMATOLOGY MPV 8.3 fL 7.4 - 10.4 07 Normal [facility] HEMATOLOGY MCH 24.7 pg 27.0 - 07 [facility] [facility] 31.0 /2012 [facility] HEMATOLOGY MCHC 32.6 g/dL 32.0 - 03/07 [facility] 36.0 /2012 [facility] HEMATOLOGY RDW 20.1 % 11.5 - 07 [facility] 14.5 /2012 [facility] HEMATOLOGY Platelet 362 K/CMM 133 - 450 07 Normal [facility] HEMATOLOGY MCV 75.7 fL 81.0 - 03/07 [facility] 99.0 /2012 [facility] HEMATOLOGY Hgb 8.8 g/dL 12.0 - 03/07 [facility] 16.0 [facility] HEMATOLOGY Hct 26.9 % 36.0 - 03/07 [facility] 48.0 [facility] HEMATOLOGY RBC 3.56 M/CMM 4.20 - 03/07 [facility] 5.40 /2012 [facility] HEMATOLOGY WBC 11.1 K/CMM 3.7 - 10.4 07 [facility] HEMATOLOGY Lymphocytes # 2.4 K/CMM 1.0 - 5.5 03/07 [facility] HEMATOLOGY Hypochrom Slight None Seen 03/07 [facility] (03/07/2013 07:43:59) Center HEMATOLOGY Microcyte 2+ None Seen 03/07 [facility] *ABN* Center (03/07/2013 07:43:59) HEMATOLOGY Anisocyte 1+ None Seen 03/07 [facility] *ABN* [place] (03/07/2013 07:43:59) HEMATOLOGY Basophils # 0.1 K/CMM 0.0 - 0.2 03/07 [facility] HEMATOLOGY Polychrom Slight None Seen 03/07 [facility] (03/07/2013 07:43:59) Center HEMATOLOGY Basophils 0.8 % 0.0 - 1.0 03/07 [facility] HEMATOLOGY Eosinophils 1.3 % 0.0 - 4.0 03/07 [facility] HEMATOLOGY Segs-Bands # 7.6 K/CMM 1.5 - 8.1 / Normal [facility] HEMATOLOGY Monocytes 8.1 % 2.0 - 12.0 03/07 Normal [facility] HEMATOLOGY Monocytes # 0.9 K/CMM 0.0 - 0.8 / HI [facility] HEMATOLOGY Eosinophils # 0.1 K/CMM 0.0 - 0.5 03/07 Normal [facility] HEMATOLOGY Target Cell Slight None Seen 03/07 [facility]N Medical *ABN* Center (03/07/2013 07:43:59) HEMATOLOGY Plt Morph Normal 03/07 Normal [facility] (03/07/2013 07:43:59) Center HEMATOLOGY Lymphocytes 22.0 % 20.0 - 07 [facility] 40.0 [facility] HEMATOLOGY Segs 67.8 % 45.0 - 07 [facility] 75.0 [facility] CHEMISTRY Lactic Acid 1.7 mMol/L 0.5 - 2.2 03/07 [facility] Lvl [facility] CHEMISTRY Total CK 21 unit/L 12 - 191 03/07 Normal [facility] CHEMISTRY Troponin-I null 0.00 - 07 Normal [facility] 0.40 /2012 [facility] CHEMISTRY eGFR 104 03/07 NA 6Result Comment: The eGFR is calculated using the CKD-EPI formula. In most young, healthy individuals the eGFR will be > 90 mL/min/1.73m2. The eGFR declines with age. An eGFR of 60-89 may be normal in [facility] mL/min/1.7 /2012 some populations, particularly the elderly, for whom the CKD-EPI formula has not been extensively validated. Use of the eGFR is not recommended in the following populations: [address] Individuals with unstable creatinine concentrations, including [...] 27 meq/L 24 - 32 07 Normal [facility] CHEMISTRY Potassium Lvl 3.6 meq/L 3.5 - 5.1 03/07 Normal [facility]2012 [facility] CHEMISTRY Chloride Lvl 99 meq/L 95 - 109 03/07 Normal [facility] CHEMISTRY Sodium Lvl 134 meq/L 135 - 145 03/07 LOW [facility] CHEMISTRY BUN 5 mg/dL 7 - 22 03/07 LOW [facility] CHEMISTRY Creatinine 0.7 mg/dL 0.5 - 1.4 03/07 Normal [facility] Lvl [facility] CHEMISTRY Glucose Lvl 233 mg/dL 70 - 99 03/07 HI 9Interpretive Data: Adult reference range values reflect the clinical guidelines of the [place] [employer]. [facility] CHEMISTRY Calcium Lvl 7.7 mg/dL 8.5 - 10.5 03/07 LOW [facility] CHEMISTRY AGAP 11.6 meq/L 10.0 - 07 Normal [facility] 20.0 [facility] CHEMISTRY Temp Art 37.0 Abby 03/07 NA [facility] CHEMISTRY pH Art 7.41 7.35 - 03/07 Normal [facility] 7.45 [facility] CHEMISTRY pCO2 Art 34 mm[Hg] 35 - 45 03/07 LOW [facility] CHEMISTRY O2 Sat Art 97.5 % 95.0 - 03/07 Normal [facility] 100.0 [facility] CHEMISTRY HCO3 Art 22 mMol/L 22 - 26 03/07 Normal [facility] CHEMISTRY BE Art -2 mMol/L -2-2 - 2 03/07 Normal [facility] CHEMISTRY pO2 Art 96 mm[Hg] 80 - 100 03/07 Normal [facility] Chest 1view Chest 1view EXAM: CHEST 1 VIEW 03/07 - - Medical This report was dictated by a Biopharmaceutical Rep/Fellow. I have personally reviewed the images as [...] CHEMISTRY Temp Mark 37.0 Abby 03/07 NA [facility] CHEMISTRY pO2 Mark 20 mm[Hg] 20 - 49 03/07 Normal [facility] CHEMISTRY HCO3 Mark 21 mMol/L 22 - 26 03/07 LOW [facility] CHEMISTRY BE Mark -2 mMol/L -2-2 - 2 03/07 Normal [facility] CHEMISTRY O2 Sat Mark 36.2 % 40.0 - 03/07 [facility] 70.0 [facility] CHEMISTRY pCO2 Mark 29 mm[Hg] 38 - 52 03/07 LOW [facility] CHEMISTRY pH Mark 7.46 7.28 - 03/07 [facility] 7.42 [facility] CHEMISTRY Lactic Acid 2.6 mMol/L 0.5 - 2.2 03/07 [facility] Lvl [facility] CHEMISTRY Phosphorus 3.1 mg/dL 2.5 - 4.5 03/07 Normal [facility] CHEMISTRY Magnesium Lvl 1.6 mg/dL 1.8 - 2.4 03/07 LOW [facility] CHEMISTRY Total CK 31 unit/L 12 - 191 03/07 Normal [facility] CHEMISTRY Troponin-I null 0.00 - 03/07 Normal [facility] 0.40 [facility] CHEMISTRY U Preg Negative Negative 03/06 Normal [facility] (03/06/2013 18:25:00) Center URINALYSIS UA Amorph Occasional /HPF None Seen 03/06 [facility] *ABN* [place] (03/06/2013 18:25:00) URINALYSIS UA Mucus Few /LPF None Seen 03/06 Normal [facility] (03/06/2013 18:25:00) Center URINALYSIS Micro? Performed 03/06 Normal [facility] (03/06/2013 18:25:00) Center URINALYSIS UA Sq Epi Moderate /LPF Few 03/06 [facility] Medical *ABN* [place] (03/06/2013 18:25:00) URINALYSIS UA WBC 0-2 /HPF None Seen 03/06 Normal [facility] (03/06/2013 18:25:00) Center URINALYSIS UA RBC None Seen 0 - 2 03/06 Normal [facility] (03/06/2013 18:25:00) Center URINALYSIS UA Bacteria Few /HPF None Seen 03/06 Normal [facility] (03/06/2013 18:25:00) Center URINALYSIS UA Bili Negative Negative 03/06 NA Medical *NA* [place] (03/06/2013 18:25:00) URINALYSIS UA 0.2 EU/dL 0.1 - 1.0 03/06 Normal [facility] Urobilinogen /2012 [facility] URINALYSIS UA Nitrite Negative Negative 03/06 Normal [facility] (03/06/2013 18:25:00) [place] URINALYSIS UA Leuk Est Trace Negative 03/06 [facility] Medical *ABN* [place] (03/06/2013 18:25:00) URINALYSIS UA Blood Negative Negative 03/06 Normal [facility] (03/06/2013 18:25:00) [place] URINALYSIS UA Ketones 40 mg/dL Negative 03/06 [facility] Medical *ABN* [place] (03/06/2013 18:25:00) URINALYSIS UA Turbidity Clear Clear 03/06 Normal [facility] (03/06/2013 18:25:00) Center URINALYSIS UA Color Yellow Yellow 03/06 NA [facility] *NA* [place] (03/06/2013 18:25:00) URINALYSIS UA Spec Grav 1.015 <=1.030 03/06 Normal [facility] URINALYSIS UA Protein Negative Negative 03/06 Normal [facility] (03/06/2013 18:25:00) Center URINALYSIS UA Glucose 250 mg/dL Negative 03/06 [facility] *ABN* [place] (03/06/2013 18:25:00) URINALYSIS UA pH 7.5 5.0 - 8.0 03/06 Normal [facility] Chest 2 Chest 2 views EXAM: CHEST 2 VIEWS 03/06 - [facility] - Medical This report was dictated by a Biopharmaceutical Rep/Fellow. I have personally reviewed the images as [...] left pleural effusion. BEDSIDE Comment1 Notify 12/07 [facility] Fei GLUCOSE MARTÍNEZ/ [facility] TESTING Center BEDSIDE Gluc POC 64 mg/dL 70 - 99 12/07 LOW 3Interpretive [facility] GLUCOSE Lifscn Data: [facility] Upper Reportable Limit: 200 mg/dL. BEDSIDE Gluc POC 50 mg/dL 70 - 99 / LOW 4Interpretive [facility] GLUCOSE Lifscn Data: [facility] Upper Reportable Limit: 200 mg/dL. BEDSIDE Comment1 Notify 12/07 [facility] Fei GLUCOSE MARTÍNEZ/ /2012 [facility] TESTING [place] BEDSIDE Gluc POC 45 mg/dL 70 - 99 12/07 LOW 5Interpretive [facility] GLUCOSE Lifscn Data: [facility] Upper Reportable Limit: 200 mg/dL. BEDSIDE Comment1 Notify 12/07 [facility] Fei ROACH RN/ /2012 [facility] CHEMISTRY eGFR 109 12/07 NA 7Result Comment: The eGFR is calculated using the CKD-EPI formula. In most young, healthy individuals the eGFR will be > 90 mL/min/1.73m2. The eGFR declines with age. An eGFR of 60-89 may be normal in [facility] mL/min/1.7 /2012 some populations, particularly the elderly, for whom the CKD-EPI formula has not been extensively validated. Use of the eGFR is not recommended in the following populations: [address] Center Individuals with unstable creatinine concentrations, [...] 8.3 mg/dL 8.5 - 10.5 12/07 LOW [facility] CHEMISTRY AGAP 12.8 meq/L 10.0 - 12/07 Normal [facility] 20.0 [facility] CHEMISTRY BUN 2 mg/dL 7 - 22 12/07 LOW [facility] CHEMISTRY Glucose Lvl 95 mg/dL 70 - 99 12/07 Normal 10Interpretive Data: Adult reference range values reflect the clinical guidelines of the [place] [employer]. [facility] CHEMISTRY Potassium Lvl 3.8 meq/L 3.5 - 5.1 12/07 Normal [facility] CHEMISTRY Creatinine 0.6 mg/dL 0.5 - 1.4 12/07 Normal [facility] CHEMISTRY Sodium Lvl 140 meq/L 135 - 145 12/07 Normal [facility] CHEMISTRY Chloride Lvl 105 meq/L 95 - 109 12/07 Normal [facility] CHEMISTRY CO2 26 meq/L 24 - 32 12/07 Normal [facility] BEDSIDE Comment2 Verify 12/06 NA [facility] GLUCOSE wLab [facility] BEDSIDE Comment2 Verify 12/06 NA [facility] GLUCOSE w/Lab [facility] CHEMISTRY AGAP 13.5 meq/L 10.0 - 12/06 Normal [facility] .0 [facility] CHEMISTRY Calcium Lvl 8.1 mg/dL 8.5 - 10.5 12/06 LOW [facility] CHEMISTRY CO2 28 meq/L 24 - 32 12/06 Normal [facility] CHEMISTRY Chloride Lvl 101 meq/L 95 - 109 12/06 Normal [facility] CHEMISTRY eGFR 104 04 NA 8Result Comment: The eGFR is calculated using the CKD-EPI formula. In most young, healthy individuals the eGFR will be > 90 mL/min/1.73m2. The eGFR declines with age. An eGFR of 60-89 may be normal in [facility] mL/min/1.7 some populations, particularly the elderly, for whom the CKD-EPI formula has not been extensively validated. Use of the eGFR is not recommended in the following populations: [address] Individuals with unstable creatinine concentrations, including [...] reference range values reflect the clinical guidelines [facility] of the [place]. [facility] CHEMISTRY BUN 2 mg/dL 7 - 22 04 LOW [facility]2012 [facility] CHEMISTRY Creatinine 0.7 mg/dL 0.5 - 1.4 / Normal [facility] CHEMISTRY Sodium Lvl 139 meq/L 135 - 145 / Normal [address] CHEMISTRY Potassium Lvl 3.5 meq/L 3.5 - 5.1 12/06 Normal [facility]2012 [facility] CHEMISTRY Lipase Lvl 62 unit/L 73 - 393 04/ LOW [address] CHEMISTRY Alk Phos 92 unit/L 39 - 136 04/ Normal [facility]2012 [facility] CHEMISTRY Albumin Lvl 2.7 g/dL 3.5 - 5.0 / [facility]2012 [facility] CHEMISTRY Total Protein 5.8 g/dL 6.4 - 8.4 / [address] CHEMISTRY Globulin 3.1 g/dL 2.0 - 4.0 / Normal [facility]2012 [facility] CHEMISTRY A/G Ratio 0.9 0.7 - 1.6 / Normal [facility]2012 [facility] CHEMISTRY AST 74 unit/L 0 - 37 04/ HI [facility]2012 [facility] CHEMISTRY ALT 50 unit/L 0 - 65 04/ Normal [facility]2012 [facility] CHEMISTRY Bili Indirect 0.1 mg/dL 0.0 - 1.0 / Normal [facility]2012 [facility] CHEMISTRY Bili Total 0.2 mg/dL 0.2 - 1.3 / Normal [facility]2012 [facility] CHEMISTRY Bili Direct 0.1 mg/dL 0.0 - 0.3 12/06 Normal [facility]2012 [facility] CHEMISTRY eGFR 109 04/ NA 9Result Comment: The eGFR is calculated using the CKD-EPI formula. In most young, healthy individuals the eGFR will be > 90 mL/min/1.73m2. The eGFR declines with age. An eGFR of 60-89 may be normal in [facility] mL/min/1.7 some populations, particularly the elderly, for whom the CKD-EPI formula has not been extensively validated. Use of the eGFR is not recommended in the following populations: [address] Individuals with unstable creatinine concentrations, including [...] the clinical guidelines of the [place] [employer]. [facility] CHEMISTRY Creatinine 0.6 mg/dL 0.5 - 1.4 12/05 Normal [facility] Lvl [facility] CHEMISTRY BUN 1 mg/dL 7 - 22 12/05 LOW [facility] CHEMISTRY Chloride Lvl 102 meq/L 95 - 109 12/05 Normal [facility] CHEMISTRY Potassium Lvl 3.3 meq/L 3.5 - 5.1 12/05 [facility] CHEMISTRY Sodium Lvl 140 meq/L 135 - 145 12/05 Normal [facility] CHEMISTRY Calcium Lvl 7.9 mg/dL 8.5 - 10.5 12/05 LOW [facility] CHEMISTRY CO2 29 meq/L 24 - 32 12/05 Normal [facility] CHEMISTRY AGAP 12.3 meq/L 10.0 - 12/05 Normal [facility] 20.0 [facility] CHEMISTRY Ca Norm mgdL 4.84 mg/dL 4.65 - 12/03 Normal [facility] 5. [facility] CHEMISTRY Ca Ion mgdL 4.84 mg/dL 4.65 - 12/03 Normal [facility] 5. [facility] CHEMISTRY Ca Ion 1.21 1.16 - 12/03 Normal [facility] mMol/L 1. [facility] CHEMISTRY Ca Norm 1.21 1.16 - 12/03 Normal [facility] mMol/L 1. [facility] CHEMISTRY Magnesium Lvl 1.8 mg/dL 1.8 - 2.4 12/03 Normal [facility] CHEMISTRY Phosphorus 3.4 mg/dL 2.5 - 4.5 12/03 Normal [facility] HEMATOLOGY Lymphocytes # 1.8 K/CMM 1.0 - 5.5 12/03 Normal [facility] HEMATOLOGY Lymphocytes 23.6 % 20.0 - 12/03 Normal [place] 40.0 [facility] HEMATOLOGY Eosinophils 2.9 % 0.0 - 4.0 12/03 Normal [facility] HEMATOLOGY Monocytes 9.1 % 2.0 - 12.0 12/03 Normal [facility] HEMATOLOGY Basophils 0.6 % 0.0 - 1.0 12/03 Normal [facility] HEMATOLOGY Segs-Bands # 5.0 K/CMM 1.5 - 8.1 12/03 Normal [facility] HEMATOLOGY Segs 63.8 % 45.0 - 12/03 [facility] 75.0 [facility] HEMATOLOGY Monocytes # 0.7 K/CMM 0.0 - 0.8 12/03 Normal [facility] HEMATOLOGY Eosinophils # 0.2 K/CMM 0.0 - 0.5 12/03 Normal [facility] HEMATOLOGY Microcyte 1+ None Seen 12/03 [facility] *ABN* Center (12/03/2012 01:02:00) HEMATOLOGY WBC 7.8 K/CMM 3.7 - 10.4 12/03 Normal [facility] HEMATOLOGY Hct 27.8 % 36.0 - 12/03 LOW [facility] 48.0 [facility] HEMATOLOGY MPV 8.5 fL 7.4 - 10.4 12/03 Normal [facility] HEMATOLOGY MCHC 32.4 g/dL 32.0 - 12/03 Normal [facility] 36.0 [facility] HEMATOLOGY RDW 18.9 % 11.5 - 12/03 [place] 14.5 [facility] HEMATOLOGY MCH 24.6 pg 27.0 - 12/03 LOW [place] 31.0 [facility] HEMATOLOGY RBC 3.66 M/CMM 4.20 - 12/03 LOW [facility] 5.40 [facility] HEMATOLOGY MCV 75.9 fL 81.0 - 12/03 LOW [facility] 99.0 Medical [place] HEMATOLOGY Platelet 224 K/CMM 133 - 450 12/03 Normal [facility] HEMATOLOGY Hgb 9.0 g/dL 12.0 - 12/03 LOW [facility] 16.0 [facility] Microbiolog Culture: 12/02 [facility] y Blood /2012 Medical Center Microbiolog Culture: MRSA 12/02 [facility] y /2012 Medical Center Microbiolog Culture: 12/02 [facility] y Resistant Medical Acinetobacter Center Screen CHEMISTRY Ketone 1.42 <=0.27 12/02 HI [facility] Quantitative mmol/L /2012 [facility] URINALYSIS UA WBC 1 /HPF 0 - 5 12/02 Normal [facility] URINALYSIS UA RBC null 0 - 2 12/02 Normal [facility] URINALYSIS UA <=1.0 0.1 - 1.0 12/02 NA [facility] Urobilinogen mg/dL Medical
*NA*< Center br/>(12/02 04:02:55) <sup> </sup> URINALYSIS UA Sq Epi Moderate /LPF Few 12/02 [facility] *ABN* Center (12/02/2012 04:02:55) URINALYSIS UA Leuk Est Negative Negative 12/02 Normal [facility] (12/02/2012 04:02:55) Center URINALYSIS UA Nitrite Negative Negative 12/02 Normal [facility] (12/02/2012 04:02:55) Center URINALYSIS UA Mucus Few /LPF None Seen 12/02 NA Medical *NA* Center (12/02/2012 04:02:55) URINALYSIS UA Ketones 40 mg/dL Negative 12/02 [facility] *ABN* Center (12/02/2012 04:02:55) URINALYSIS UA Blood Negative Negative 12/02 Normal [facility] (12/02/2012 04:02:55) Center URINALYSIS UA Glucose >=1000 mg/dL Negative 12/02 ABN [facility] *ABN* Center (12/02/2012 04:02:55) URINALYSIS UA Bili Negative Negative 12/02 NA Medical *NA* Center (12/02/2012 04:02:55) URINALYSIS UA Protein Negative mg/dL Negative 12/02 Normal [facility] (12/02/2012 04:02:55) Center URINALYSIS UA Turbidity Clear Clear 12/02 Normal [facility] (12/02/2012 04:02:55) Center URINALYSIS UA pH 5.5 5.0 - 8.0 12/02 Normal [facility] URINALYSIS UA Spec Grav 1.010 <=1.030 12/02 Normal [facility] URINALYSIS UA Color Yellow Yellow 12/02 NA [facility] *NA* Center (12/02/2012 04:02:55) HEMATOLOGY MPV 8.9 fL 7.4 - 10.4 12/02 Normal [facility] HEMATOLOGY Hct 27.9 % 36.0 - 12/02 [facility] 48.0 [facility] HEMATOLOGY MCV 76.1 fL 81.0 - 12/02 [facility] 99.0 [facility] HEMATOLOGY MCH 25.2 pg 27.0 - 12/02 [facility] 31.0 [facility] HEMATOLOGY MCHC 33.2 g/dL 32.0 - 12/02 Normal [facility] 36.0 [facility] HEMATOLOGY RDW 19.3 % 11.5 - 12/02 [facility] 14.5 [facility] HEMATOLOGY Platelet 224 K/CMM 133 - 450 12/02 Normal [facility] HEMATOLOGY WBC 8.6 K/CMM 3.7 - 10.4 12/02 Normal [facility] HEMATOLOGY Hgb 9.3 g/dL 12.0 - 12/02 [facility] 16.0 [facility] HEMATOLOGY RBC 3.67 M/CMM 4.20 - 12/02 [facility] 5.40 /2012 [facility] HEMATOLOGY Segs-Bands # 6.4 K/CMM 1.5 - 8.1 12/02 Normal [facility] HEMATOLOGY Lymphocytes # 1.5 K/CMM 1.0 - 5.5 12/02 Normal [facility] HEMATOLOGY Eosinophils 0.6 % 0.0 - 4.0 12/02 Normal [facility] HEMATOLOGY Basophils 0.7 % 0.0 - 1.0 12/02 Normal [facility] HEMATOLOGY Lymphocytes 17.3 % 20.0 - 03/29 LOW [facility] 40.0 [facility] HEMATOLOGY Monocytes # 0.7 K/CMM 0.0 - 0.8 12/02 Normal [facility] HEMATOLOGY Microcyte 1+ None Seen 12/02 [facility] *ABN* Center (12/02/2012 04:02:51) HEMATOLOGY Eosinophils # 0.1 K/CMM 0.0 - 0.5 12/02 Normal [facility] HEMATOLOGY Basophils # 0.1 K/CMM 0.0 - 0.2 12/02 Normal [facility] HEMATOLOGY Segs 73.8 % 45.0 - 12/02 Normal [facility] 75.0 [facility] HEMATOLOGY Monocytes 7.6 % 2.0 - 12.0 12/02 Normal [facility] Microbiolog Culture: 12/02 [facility] y [facility] CHEMISTRY POC A Glu 305 mg/dL 70 - 99 12/02 HI [facility] CHEMISTRY POC A Hct 29.0 % 36.0 - 12/02 LOW [facility] 48.0 [facility] CHEMISTRY POC A O2 Sat 97.0 % 95.0 - 12/02 Normal [facility] 100.0 [facility] CHEMISTRY POC A K 3.4 meq/L 3.5 - 5.1 12/02 LOW [facility] CHEMISTRY POC A Na 130 meq/L 135 - 145 12/02 LOW [facility] CHEMISTRY POC A PCO2 38 mm[Hg] 35 - 45 12/02 Normal [facility] CHEMISTRY POC A BE 2 mMol/L -2-2 - 2 12/02 Normal [facility] CHEMISTRY POC A HCO3 26 mMol/L 22 - 26 12/02 Normal [facility] CHEMISTRY POC A Source ART 12/02 NA [facility] CHEMISTRY POC A PO2 89 mm[Hg] 80 - 100 12/02 Normal [facility] CHEMISTRY POC A pH 7.44 7.35 - 12/02 Normal [facility] 7.45 [facility] CHEMISTRY POC A Temp 37.0 Abby 12/02 NA [facility] CHEMISTRY POC A Ca Ion 1.12 1.16 - 12/02 LOW [facility] mMol/L 1.30 [facility] CHEMISTRY POC A LA 0.8 mMol/L 0.5 - 2.2 12/02 Normal [facility] CHEMISTRY Magnesium Lvl 1.9 mg/dL 1.8 - 2.4 12/02 Normal [facility] CHEMISTRY Phosphorus 2.7 mg/dL 2.5 - 4.5 12/02 Normal [facility] CHEMISTRY Ca Norm mgdL 4.36 mg/dL 4.65 - 12/02 LOW [facility] . [facility] CHEMISTRY Ca Ion 1.14 1.16 - 12/02 LOW [place] mMol/L 1. [facility] CHEMISTRY Ca Ion mgdL 4.56 mg/dL 4.65 - 12/02 LOW [place] . [facility] CHEMISTRY Ca Norm 1.09 1.16 - 12/02 [facility] [place] mMol/L 1. [facility] HEMATOLOGY Platelet 223 K/CMM 133 - 450 12/02 Normal [facility] HEMATOLOGY MPV 9.2 fL 7.4 - 10.4 12/02 Normal [facility] HEMATOLOGY MCHC 32.3 g/dL 32.0 - 12/02 Normal [facility] 36.0 [facility] HEMATOLOGY RDW 19.2 % 11.5 - 12/02 [place] [facility] 14.5 [facility] HEMATOLOGY WBC 7.6 K/CMM 3.7 - 10.4 12/02 Normal [facility] HEMATOLOGY Hgb 9.2 g/dL 12.0 - 12/02 [facility] 16.0 [facility] HEMATOLOGY Hct 28.6 % 36.0 - 12/02 [facility] 48.0 [facility] HEMATOLOGY MCV 76.3 fL 81.0 - 12/02 [facility] 99.0 [facility] HEMATOLOGY MCH 24.6 pg 27.0 - 12/02 [facility] 31.0 [facility] HEMATOLOGY RBC 3.74 M/CMM 4.20 - 12/02 [facility] 5.40 /2012 [facility] HEMATOLOGY Microcyte 1+ None Seen 12/02 [facility] *ABN* Center (12/02/2012 03:00:00) HEMATOLOGY Basophils # 0.1 K/CMM 0.0 - 0.2 12/02 Normal [facility] HEMATOLOGY Monocytes # 0.6 K/CMM 0.0 - 0.8 12/02 Normal [facility] HEMATOLOGY Lymphocytes # 1.9 K/CMM 1.0 - 5.5 12/02 Normal [facility] HEMATOLOGY Segs-Bands # 5.0 K/CMM 1.5 - 8.1 12/02 Normal [facility] HEMATOLOGY Segs 65.5 % 45.0 - 12/02 Normal [facility] 75.0 /2012 [facility] HEMATOLOGY Lymphocytes 25.0 % 20.0 - 12/02 Normal [facility] 40.0 [facility] [facility] HEMATOLOGY Monocytes 8.4 % 2.0 - 12.0 12/02 Normal [facility] HEMATOLOGY Eosinophils 0.4 % 0.0 - 4.0 12/02 Normal [facility] HEMATOLOGY Basophils 0.7 % 0.0 - 1.0 12/02 Normal [facility] CHEMISTRY Magnesium Lvl 2.0 mg/dL 1.8 - 2.4 12/01 Normal [facility] CHEMISTRY Ca Norm mgdL 4.48 mg/dL 4.65 - 12/01 LOW [facility] 5. [facility] CHEMISTRY Ca Ion mgdL 4.68 mg/dL 4.65 - 12/01 Normal [facility] 5. [facility] CHEMISTRY Ca Ion 1.17 1.16 - 12/01 Normal [facility] mMol/L 1. [facility] CHEMISTRY Ca Norm 1.12 1.16 - 12/01 LOW [facility] mMol/L 1. [facility] CHEMISTRY Phosphorus 2.7 mg/dL 2.5 - 4.5 12/01 Normal [facility] URINALYSIS UA <=1.0 0.1 - 1.0 11/30 NA [facility] Urobilinogen mg/dL /2012 Medical
*NA*< Center br/>(11/30 17:41:33) <sup> </sup> URINALYSIS UA Mucus Few /LPF None Seen 11/30 NA Medical *NA* Center (11/30/2012 17:41:33) URINALYSIS UA WBC null 0 - 5 11/30 Normal [facility] URINALYSIS UA Sq Epi Moderate /LPF Few 11/30 ABN Medical *ABN* Center (11/30/2012 17:41:33) URINALYSIS UA Protein Negative mg/dL Negative 11/30 Normal [facility] (11/30/2012 17:41:33) Center URINALYSIS UA pH 5.0 5.0 - 8.0 11/30 Normal [facility] URINALYSIS UA Spec Grav 1.004 <=1.030 11/30 Normal [facility] URINALYSIS UA Turbidity Clear Clear 11/30 Normal [facility] (11/30/2012 17:41:33) Center URINALYSIS UA Color Light Yellow Yellow 11/30 NA Medical *NA* [place] (11/30/2012 17:41:33) URINALYSIS UA Leuk Est Negative Negative 11/30 Normal [facility] (11/30/2012 17:41:33) Center URINALYSIS UA Nitrite Negative Negative 11/30 Normal [facility] (11/30/2012 17:41:33) Center URINALYSIS UA Blood Negative Negative 11/30 Normal [facility] (11/30/2012 17:41:33) Center URINALYSIS UA Bili Negative Negative 11/30 NA [facility] *NA* [place] (11/30/2012 17:41:33) URINALYSIS UA Ketones 10 mg/dL Negative 11/30 ABN [facility] *ABN* [place] (11/30/2012 17:41:33) URINALYSIS UA Glucose Negative mg/dL Negative 11/30 NA [facility] *NA* [place] (11/30/2012 17:41:33) CHEMISTRY Ketone 1.65 <=0.27 11/30 HI [facility] Quantitative mmol/L /2012 [facility] HEMATOLOGY PT 14.1 s 12.0 - 11/30 Normal [facility] 14.7 [facility] HEMATOLOGY PTT 28.1 s 22.9 - 11/30 Normal 18Interpretiv [facility] 35.8 /2013 e Data: [facility] Therapeutic Range: 57 - 92 Seconds HEMATOLOGY INR 1.07 0.85 - 11/30 Normal 16Interpretive Data: RECOMMENDED RANGES FOR PROTIME INR: [facility] . 2.0-3.0 for most medical and surgical [...] CHEMISTRY U Chloride 134 meq/L 11/30 NA [facility] CHEMISTRY Bili Total 0.4 mg/dL 0.2 - 1.3 11/30 Normal [facility] CHEMISTRY Total Protein 6.3 g/dL 6.4 - 8.4 11/30 LOW [facility] CHEMISTRY Albumin Lvl 2.9 g/dL 3.5 - 5.0 11/30 LOW [facility] CHEMISTRY Alk Phos 127 unit/L 39 - 136 11/30 Normal [facility] CHEMISTRY Bili Direct 0.2 mg/dL 0.0 - 0.3 11/30 Normal [facility] CHEMISTRY AST 22 unit/L 0 - 37 11/30 Normal [facility] CHEMISTRY ALT 20 unit/L 0 - 65 11/30 Normal [facility] CHEMISTRY A/G Ratio 0.9 0.7 - 1.6 11/30 Normal [facility] CHEMISTRY Bili Indirect 0.2 mg/dL 0.0 - 1.0 11/30 Normal [facility] CHEMISTRY Globulin 3.4 g/dL 2.0 - 4.0 11/30 Normal [facility] HEMATOLOGY Basophils # 0.1 K/CMM 0.0 - 0.2 11/30 Normal [facility] HEMATOLOGY PT 13.9 s 12.0 - 11/30 Normal [facility] 14.7 [facility] HEMATOLOGY PTT 26.5 s 22.9 - 11/30 Normal 19Interpretiv [facility] 35.8 /2012 e Data: [facility] Therapeutic Range: 57 - 92 Seconds HEMATOLOGY INR 1.05 0.85 - 11/30 Normal 17Interpretive Data: RECOMMENDED RANGES FOR PROTIME INR: [facility] . 2.0-3.0 for most medical and surgical thromboembolic states. Medical 2.5-3.5 for artificial heart valves and recurrent embolism. Center INR SHOULD BE USED ONLY FOR PATIENTS ON STABLE ANTICOAGULANT THERAPY. CHEMISTRY POC V Temp 37.0 Abby 11/29 NA [facility] CHEMISTRY POC V Ion Ca 1.16 [...] mmol/L -2-2 - 2 11/29 LOW Medical [place] CHEMISTRY POC V pH 7.42 7.28 - 11/29 Normal [facility] 7.42 Medical Center CHEMISTRY POC V PCO2 31 mm[Hg] 38 - 52 11/29 LOW [facility] CHEMISTRY POC V PO2 51 mm[Hg] 20 - 49 11/29 HI [facility] CHEMISTRY POC V HCO3 20 mmol/L 22 - 26 11/29 LOW [facility] CHEMISTRY Troponin-I 0.05 ng/mL 0.00 - 11/29 Normal [facility] 0.40 Medical Center CHEMISTRY Total CK 46 [...] CHEMISTRY POC A Source ART 11/29 NA [facility] CHEMISTRY POC A O2 Sat 98.0 % 95.0 - 11/29 Normal [facility] 100.0 [facility] CHEMISTRY POC A BE -11 mMol/L -2-2 - 2 11/29 LOW [facility] CHEMISTRY POC A HCO3 14 mMol/L 22 - 26 11/29 LOW [facility] CHEMISTRY POC A PCO2 26 mm[Hg] 35 - 45 11/29 CRIT [facility] CHEMISTRY POC A PO2 115 mm[Hg] 80 - 100 11/29 HI [facility] CHEMISTRY POC A pH 7.33 7.35 - 11/29 LOW [facility] 7.45 [facility] BACTERIAL - MRSA by PCR Positive 1, 2 11/29 ABN 2Interpretive Data: Interpretive Data: The [employer] MRSA assay is a qualitative test for the direct detection of nasal colonization with methicillin-resistant Staphylococcus aureus (MRSA) to aid [facility] in the prevention and control of MRSA [...] by the [facility] within the [facility]. The [facility] Labor atory is authorized under the Clinical Laboratory Improvement Amendment of 1988 (CLIA-88) to perform high complexity testing. CHEMISTRY Temp Art 37.0 Abby 11/29 NA [facility] CHEMISTRY O2 Sat Art 96.6 % 95.0 - 11/29 Normal [facility] 100.0 [facility] CHEMISTRY pO2 Art 96 mm[Hg] 80 - 100 11/29 Normal [facility] CHEMISTRY pCO2 Art 25 mm[Hg] 35 - 45 11/29 CRIT 15Result Comment: [facility] Result(s) called to jose rodriguez at _11/29/2012 12:25:56 CDT bykak_. Read back OK. CHEMISTRY BE Art -12 mMol/L -2-2 - 2 11/29 LOW [facility] CHEMISTRY HCO3 Art 12 mMol/L - 11/29 LOW [facility] CHEMISTRY pH Art 7.30 7.35 - 11/29 LOW [facility] 7.45 [facility] CHEMISTRY A/G Ratio 0.8 0.7 - 1.6 11/29 Normal [facility] CHEMISTRY Globulin 4.0 g/dL 2.0 - 4.0 11/29 Normal [facility] CHEMISTRY AST 17 unit/L 0 - 37 11/29 Normal [facility] CHEMISTRY Bili Total 0.8 mg/dL 0.2 - 1.3 11/29 Normal [facility] CHEMISTRY B/C Ratio 14 - 11/29 Normal [facility] CHEMISTRY Total Protein 7.4 g/dL 6.4 - 8.4 11/29 Normal [facility] CHEMISTRY ALT 22 unit/L 0 - 65 11/29 Normal [facility] CHEMISTRY Albumin Lvl 3.4 g/dL 3.5 - 5.0 11/29 LOW [facility] CHEMISTRY Alk Phos 126 unit/L 39 - 136 11/29 Normal [facility] CHEMISTRY Troponin-I null 0.00 - 11/29 Normal [facility] 0.40 [facility] CHEMISTRY Lipase Lvl 70 unit/L 73 - 393 11/29 LOW [facility] CHEMISTRY B/C Ratio 10 - 11/29 Normal [facility] HEMATOLOGY Hypochrom Slight None Seen 11/29 Normal [facility] (11/28/2012 21:00:20) Center HEMATOLOGY Polychrom Slight None Seen 11/29 Normal [facility] (11/28/2012 21:00:20) Center HEMATOLOGY Anisocyte 1+ None Seen 11/29 ABN [facility] *ABN* Center (11/28/2012 21:00:20) HEMATOLOGY Large Plt Slight None Seen 11/29 [facility] Medical *ABN* Center (11/28/2012 21:00:20) HEMATOLOGY Eosinophils # 0.2 K/CMM 0.0 - 0.5 11/29 Normal [facility] CHEMISTRY U Preg Negative Negative 11/29 Normal Medical (11/28/2012 20:55:00) Center URINALYSIS UA Blood Negative Negative 11/29 Normal [facility] (11/28/2012 20:55:00) [place] URINALYSIS UA Bili Small 6 Negative 11/29 ABN 6Result Comment: Interpret positive bilirubin results with caution. Confirmatory testing not possible due to the unavailability of reagent. Correlation with Medical *ABN* serum chemistry results recommended. [place] (11/28/2012 20:55:00) URINALYSIS UA Protein Negative Negative 11/29 Normal [facility] (11/28/2012 20:55:00) [place] URINALYSIS Micro? Not Indicated 11/29 Normal [facility] (11/28/2012 20:55:00) [place] URINALYSIS UA Glucose Negative Negative 11/29 Normal [facility] (11/28/2012 20:55:00) [place] URINALYSIS UA Ketones 40 mg/dL Negative 11/29 ABN Medical *ABN* [place] (11/28/2012 20:55:00) URINALYSIS UA Leuk Est Negative Negative 11/29 Normal [facility] (11/28/2012 20:55:00) [place] URINALYSIS UA 0.2 EU/dL 0.1 - 1.0 11/29 Normal [facility] Urobilinogen /2012 [facility] URINALYSIS UA Nitrite Negative Negative 11/29 Normal [facility] (11/28/2012 20:55:00) [place] URINALYSIS UA Spec Grav 1.010 <=1.030 11/29 Normal [facility] URINALYSIS UA pH 6.0 5.0 - 8.0 11/29 Normal [facility] URINALYSIS UA Color Yellow Yellow 11/29 NA Medical *NA* [place] (11/28/2012 20:55:00) URINALYSIS UA Turbidity Clear Clear 11/29 Normal Medical (11/28/2012 20:55:00) Center BEDSIDE Comment1 Notify 11/17 NA [facility] GLUCOSE RN/MD /2012 Medical TESTING Center BEDSIDE Gluc POC 219 mg/dL 70 - 99 11/17 HI 1Interpretive [facility] GLUCOSE Lifakn Data: Medical TESTING Center Upper Reportable Limit: 200 mg/dL. BEDSIDE Gluc POC 255 mg/dL 70 - 99 11/17 [place] 2Interpretive [facility] GLUCOSE Lifscn Data: Medical TESTING Center Upper Reportable Limit: 200 mg/dL. BEDSIDE Comment1 Notify 11/17 NA [facility] GLUCOSE RN/MD /2012 [facility] Center CHEMISTRY Troponin-T null 0.000 - 11/17 Normal [facility] 0.100 [facility] CHEMISTRY Troponin-I null 0.00 - 11/17 Normal [facility] 0.40 [facility] CHEMISTRY Total CK 52 unit/L 12 - 191 11/17 Normal [facility] CHEMISTRY eGFR 109 11/17 NA 4Result Comment: The eGFR is calculated using the CKD-EPI formula. In most young, healthy individuals the eGFR will be > 90 mL/min/1.73m2. The eGFR declines with age. An eGFR of 60-89 may be normal in [facility] mL/min/1.7 some populations, particularly the elderly, for whom the CKD-EPI formula has not been extensively validated. Use of the eGFR is not recommended in the following populations: [place] [address] Center Individuals with unstable creatinine concentrations, including [...] 7.7 mg/dL 8.5 - 10.5 11/17 LOW [facility] CHEMISTRY AGAP 16.2 meq/L 10.0 - 11/17 Normal [facility] 20.0 [facility] CHEMISTRY Chloride Lvl 100 meq/L 95 - 109 11/17 Normal [facility] CHEMISTRY Potassium Lvl 4.2 meq/L 3.5 - 5.1 11/17 Normal [facility] CHEMISTRY Sodium Lvl 134 meq/L 135 - 145 11/17 LOW [facility] CHEMISTRY CO2 22 meq/L 24 - 32 11/17 [facility] CHEMISTRY Creatinine 0.6 mg/dL 0.5 - 1.4 11/17 Normal [facility] CHEMISTRY BUN 4 mg/dL 7 - 22 11/17 [facility] CHEMISTRY Glucose Lvl 237 mg/dL 70 - 99 11/17 [place] 6Interpretive Data: Adult reference range values reflect the clinical guidelines of the [place] [employer]. [facility] CHEMISTRY Magnesium Lvl 1.4 mg/dL 1.8 - 2.4 11/17 LOW [facility] CHEMISTRY Phosphorus 3.4 mg/dL 2.5 - 4.5 11/17 Normal [facility] HEMATOLOGY Segs 60.3 % 45.0 - 11/17 Normal [facility] 75.0 /2012 [facility] HEMATOLOGY Monocytes 9.0 % 2.0 - 12.0 11/17 Normal [facility] HEMATOLOGY Lymphocytes 27.8 % 20.0 - 11/17 Normal [facility] 40.0 [facility] HEMATOLOGY Eosinophils 2.1 % 0.0 - 4.0 11/17 Normal [facility] HEMATOLOGY Lymphocytes # 2.3 K/CMM 1.0 - 5.5 11/17 Normal [facility] HEMATOLOGY Eosinophils # 0.2 K/CMM 0.0 - 0.5 11/17 Normal [facility] HEMATOLOGY Basophils 0.8 % 0.0 - 1.0 11/17 Normal [facility] HEMATOLOGY Segs-Bands # 5.1 K/CMM 1.5 - 8.1 11/17 Normal [facility] HEMATOLOGY Basophils # 0.1 K/CMM 0.0 - 0.2 11/17 Normal [facility] HEMATOLOGY Monocytes # 0.8 K/CMM 0.0 - 0.8 11/17 Normal [facility] HEMATOLOGY Microcyte 1+ None Seen 11/17 ABN Medical *ABN* Center (11/17/2012 04:33:00) HEMATOLOGY INR 1.09 0.85 - 11/17 Normal 8Interpretive Data: RECOMMENDED RANGES FOR PROTIME INR: [facility] . 2.0-3.0 for most medical and surgical thromboembolic states. Medical 2.5-3.5 for artificial heart valves and recurrent embolism. Center INR SHOULD BE USED ONLY FOR PATIENTS ON STABLE ANTICOAGULANT THERAPY. HEMATOLOGY PT 14.3 s 12.0 - 11/17 Normal [facility] 14.7 [facility] HEMATOLOGY PTT 31.8 s 22.9 - 11/17 Normal 9Interpretive [facility] 35.8 Data: Heparin [facility] Therapeutic Center Range: 57 - 92 Seconds HEMATOLOGY Platelet 177 K/CMM 133 - 450 11/17 Normal Medical Center HEMATOLOGY MPV 9.5 fL 7.4 - 10.4 11/17 Normal Medical [place] HEMATOLOGY MCH 24.5 pg 27.0 - 11/17 LOW [facility] 31.0 /2012 Medical [place] HEMATOLOGY RDW 18.9 % 11.5 - 11/17 HI [facility] 14.5 /2012 Medical Center HEMATOLOGY MCHC 32.3 g/dL 32.0 - 11/17 Normal [facility] 36.0 /2012 Medical Center HEMATOLOGY MCV 75.9 fL 81.0 - 11/17 LOW [facility] 99.0 /2012 [facility] Center HEMATOLOGY RBC 3.67 M/CMM 4.20 - 11/17 LOW [facility] 5.40 /2012 Medical Center HEMATOLOGY WBC 8.4 K/CMM 3.7 - 10.4 11/17 Normal [facility] HEMATOLOGY Hct 27.9 % 36.0 - 11/17 [facility] 48.0 /2012 Medical Center HEMATOLOGY Hgb 9.0 g/dL 12.0 - 11/17 LOW [facility] 16.0 Medical Center CHEMISTRY Troponin-T null 0.000 - 11/17 Normal [facility] 0.100 [facility] Center CHEMISTRY Troponin-I null 0.00 - 11/17 Normal [facility] 0.40 [facility] Center CHEMISTRY Total CK 76 unit/L 11/17 Normal [facility] CHEMISTRY CK MB Index 0.8 0.0 - 2.5 11/17 Normal [facility] CHEMISTRY CK MB 0.6 ng/mL 0.5 - 3.6 11/17 Normal Medical Center BEDSIDE Gluc POC 305 mg/dL 70 - 99 11/17 [place] 3Interpretive [facility] GLUCOSE Lifscn Data: Medical TESTING Center Upper Reportable Limit: 200 mg/dL. BEDSIDE Comment1 Notify 11/17 NA [facility] GLUCOSE RN/MD /2012 Medical TESTING Center CHEMISTRY Magnesium Lvl 1.4 mg/dL 1.8 - 2.4 11/16 LOW [facility] CHEMISTRY Total CK 27 unit/L 11/16 Normal [facility] Center CHEMISTRY Troponin-T null 0.000 - 11/16 Normal [facility] 0.100 [facility] Center CHEMISTRY Troponin-I null 0.00 - 11/16 Normal [facility] 0.40 Medical Center CHEMISTRY B/C Ratio 6 6 - 25 11/16 Normal MH [facility] CHEMISTRY A/G Ratio 1.0 0.7 - 1.6 11/16 Normal [facility] CHEMISTRY AGAP 18.6 meq/L 10.0 - 11/16 Normal [facility] 20.0 [facility] CHEMISTRY Globulin 3.5 g/dL 2.0 - 4.0 11/16 Normal [facility] CHEMISTRY eGFR 67 11/16 NA 5Result Comment: The eGFR is calculated using the CKD-EPI formula. In most young, healthy individuals the eGFR will be > 90 mL/min/1.73m2. The eGFR declines with age. An eGFR of 60-89 may be normal in [facility] mL/min/1.7 some populations, particularly the elderly, for whom the CKD-EPI formula has not been extensively validated. Use of the eGFR is not recommended in the following populations: [address] Individuals with unstable creatinine concentrations, including [...] 3.4 g/dL 3.5 - 5.0 11/16 LOW [facility] CHEMISTRY Alk Phos 88 unit/L 39 - 136 11/16 Normal [facility] CHEMISTRY Glucose Lvl 256 mg/dL 70 - 99 11/16 HI 7Interpretive Data: Adult reference range values reflect the clinical guidelines of the [place] [employer]. [facility] CHEMISTRY BUN 6 mg/dL 7 - 22 11/16 LOW [facility] CHEMISTRY Sodium Lvl 136 meq/L 135 - 145 11/16 Normal [facility] CHEMISTRY Chloride Lvl 99 meq/L 95 - 109 11/16 Normal [facility] CHEMISTRY Creatinine 1.0 mg/dL 0.5 - 1.4 11/16 Normal [facility] CHEMISTRY Potassium Lvl 3.6 meq/L 3.5 - 5.1 11/16 Normal [facility] CHEMISTRY CO2 22 meq/L 24 - 32 11/16 LOW [facility] CHEMISTRY Calcium Lvl 8.8 mg/dL 8.5 - 10.5 11/16 Normal [facility] CHEMISTRY Bili Total 0.6 mg/dL 0.2 - 1.3 11/16 Normal [facility] CHEMISTRY Total Protein 6.9 g/dL 6.4 - 8.4 11/16 Normal [facility] CHEMISTRY AST 52 unit/L 0 - 37 11/16 HI [facility] CHEMISTRY ALT 52 unit/L 0 - 65 11/16 Normal [facility] CHEMISTRY Phosphorus 1.6 mg/dL 2.5 - 4.5 11/16 LOW [facility] HEMATOLOGY Lymphocytes 16.8 % 20.0 - 11/16 LOW [facility] 40.0 [facility] HEMATOLOGY Segs 72.3 % 45.0 - 11/16 [facility] 75.0 [facility] HEMATOLOGY Large Plt Slight None Seen 11/16 [facility] (11/16/2012 13:17:00) HEMATOLOGY Elliptocyte Slight None Seen 11/16 [facility] (11/16/2012 13:17:00) HEMATOLOGY Polychrom Slight None Seen 11/16 [facility] (11/16/2012 13:17:00) Center HEMATOLOGY Microcyte 1+ None Seen 11/16 [facility] (11/16/2012 13:17:00) HEMATOLOGY Basophils # 0.1 K/CMM 0.0 - 0.2 11/16 Normal [facility] HEMATOLOGY Hypochrom Slight None Seen 11/16 Normal [facility] (11/16/2012 13:17:00) Center HEMATOLOGY Anisocyte 1+ None Seen 11/16 [facility] (11/16/2012 13:17:00) HEMATOLOGY Schistocyte Occasional 11/16 NA [facility] HEMATOLOGY Monocytes 8.6 % 2.0 - 12.0 11/16 Normal [facility] HEMATOLOGY Eosinophils 1.5 % 0.0 - 4.0 11/16 Normal [facility] HEMATOLOGY Monocytes # 1.1 K/CMM 0.0 - 0.8 11/16 HI [facility] HEMATOLOGY Segs-Bands # 9.7 K/CMM 1.5 - 8.1 11/16 [facility] HEMATOLOGY Eosinophils # 0.2 K/CMM [...] WBC 13.3 K/CMM 3.7 - 10.4 11/16 [facility] HEMATOLOGY RDW 18.0 % 11.5 - 11/16 [facility] [place] 14.5 /2012 Medical Center HEMATOLOGY Hct 32.4 % 36.0 - 11/16 LOW [place] 48.0 /2012 Medical Center HEMATOLOGY MCHC 33.3 g/dL 32.0 - 11/16 Normal [facility] 36.0 /2012 Medical Center HEMATOLOGY MCV 75.4 fL 81.0 - 11/16 LOW [place] 99.0 /2012 Medical Center HEMATOLOGY MCH 25.1 pg 27.0 - 11/16 [facility] 31.0 /2012 Medical Center HEMATOLOGY Platelet 230 K/CMM 133 - 450 11/16 Normal [facility] HEMATOLOGY MPV 9.9 fL 7.4 - 10.4 11/16 Normal [facility] BEDSIDE Comment1 Notify 11/14 NA [facility] GLUCOSE MARTÍNEZ/ /2012 Medical TESTING Center BEDSIDE Gluc POC 266 mg/dL 11/14 [place] 2Interpretive [facility] GLUCOSE Lifsc Data: Medical TESTING Center Upper Reportable Limit: 200 mg/dL. BEDSIDE Comment1 Notify 11/14 NA [facility] GLUCOSE MARTÍNEZ/ /2012 Medical TESTING Center BEDSIDE Gluc POC 140 mg/dL - 11/14 [place] 3Interpretive [facility] GLUCOSE Lifsc Data: Medical TESTING Center Upper Reportable Limit: 200 mg/dL. BEDSIDE Comment1 Notify 11/14 NA [facility] GLUCOSE MARTÍNEZ/ /2012 Medical TESTING Center BEDSIDE Gluc POC 201 mg/dL - 11/14 [place] 4Interpretive [facility] GLUCOSE Lifsc Data: [facility] Upper Reportable Limit: 200 mg/dL. CHEMISTRY A/G Ratio 0.9 0.7 - 1.6 11/14 Normal [facility] CHEMISTRY AST 41 unit/L 0 - 37 11/14 HI [facility] CHEMISTRY eGFR 104 11/14 NA 6Result Comment: The eGFR is calculated using the CKD-EPI formula. In most young, healthy individuals the eGFR will be > 90 mL/min/1.73m2. The eGFR declines with age. An eGFR of 60-89 may be normal in [facility] mL/min/1.7 some populations, particularly the elderly, for whom the CKD-EPI formula has not been extensively validated. Use of the eGFR is not recommended in the following populations: [address] Individuals with unstable creatinine concentrations, including [...] 2.9 g/dL 3.5 - 5.0 11/14 LOW [facility] CHEMISTRY Alk Phos 84 unit/L 39 - 136 11/14 Normal [facility] CHEMISTRY BUN 3 mg/dL 7 - 22 11/14 LOW [facility] CHEMISTRY Creatinine 0.7 mg/dL 0.5 - 1.4 11/14 Normal [facility] CHEMISTRY Sodium Lvl 136 meq/L 135 - 145 11/14 Normal [facility] CHEMISTRY Total Protein 6.3 g/dL 6.4 - 8.4 11/14 LOW [facility] CHEMISTRY ALT 51 unit/L 0 - 65 11/14 Normal [facility] CHEMISTRY Potassium Lvl 3.7 meq/L 3.5 - 5.1 11/14 Normal [facility] CHEMISTRY Chloride Lvl 101 meq/L 95 - 109 11/14 Normal [facility] CHEMISTRY Glucose Lvl 210 mg/dL 70 - 99 11/14 [place] 9Interpretive Data: Adult reference range values reflect the clinical guidelines of the [place] [employer]. [facility] CHEMISTRY AGAP 15.7 meq/L 10.0 - 11/14 Normal [place] 20.0 /2012 [facility] CHEMISTRY B/C Ratio 4 6 - 25 11/14 LOW [facility] CHEMISTRY Globulin 3.4 g/dL 2.0 - 4.0 11/14 Normal [facility] CHEMISTRY CO2 23 meq/L 24 - 32 11/14 LOW [facility] CHEMISTRY Bili Total 0.4 mg/dL 0.2 - 1.3 11/14 Normal [facility] CHEMISTRY Calcium Lvl 8.5 mg/dL 8.5 - 10.5 11/14 Normal [facility] CHEMISTRY Phosphorus 3.6 mg/dL 2.5 - 4.5 11/14 Normal [facility] CHEMISTRY Magnesium Lvl 1.5 mg/dL 1.8 - 2.4 11/14 LOW [facility] CHEMISTRY Ca Norm mgdL 3.52 mg/dL 4.65 - 11/14 LOW [facility] 5. [facility] CHEMISTRY Ca Ion mgdL 3.32 mg/dL 4.65 - 11/14 CRIT [place] 5. [facility] CHEMISTRY Ca Ion 0.83 1.16 - 11/14 CRIT 15Result [place] mMol/L 1. Comment: [facility] Result(s) called to Arlin Rose at 11/14/2012 00:23:56 CDT_ by_tvs. Read back OK. CHEMISTRY Ca Norm 0.88 1.16 - 11/14 CRIT [place] mMol/L 1. Medical [place] HEMATOLOGY Platelet 221 K/CMM 133 - 450 11/14 Normal [facility] HEMATOLOGY RDW 19.0 % 11.5 - 03 HI [place] 14.5 /2012 Medical Center HEMATOLOGY MCHC 32.4 g/dL 32.0 - 11/14 Normal [place] 36.0 Medical Center HEMATOLOGY MCV 75.5 fL 81.0 - 11/14 [facility] [place] 99.0 /2012 [facility] HEMATOLOGY Hct 35.5 % 36.0 - 11/14 LOW [place] 48.0 /2012 [facility] HEMATOLOGY Hgb 11.5 g/dL 12.0 - 11/14 LOW [place] 16.0 Medical Center HEMATOLOGY MCH 24.5 pg 27.0 - 11/14 [facility] [place] 31.0 /2012 Medical Center HEMATOLOGY MPV 9.1 fL 7.4 - 10.4 11/14 Normal [facility] HEMATOLOGY RBC 4.70 M/CMM 4.20 - 03 Normal [place] 5.40 /2012 [facility] HEMATOLOGY WBC 8.6 K/CMM 3.7 - 10.4 11/14 Normal [facility] HEMATOLOGY Segs 53.3 % 45.0 - 11/14 Normal [place] 75.0 /2012 [facility] HEMATOLOGY Microcyte 1+ None Seen 11/14 ABN Medical *ABN* Center (11/13/2012 23:45:00) HEMATOLOGY Basophils # 0.1 K/CMM 0.0 - 0.2 11/14 Normal [facility] HEMATOLOGY Eosinophils # 0.2 K/CMM 0.0 - 0.5 11/14 Normal [facility] HEMATOLOGY Monocytes # 0.9 K/CMM 0.0 - 0.8 11/14 HI [facility] HEMATOLOGY Lymphocytes # 2.9 K/CMM 1.0 - 5.5 11/14 Normal [facility] HEMATOLOGY Monocytes 10.3 % 2.0 - 12.0 11/14 Normal [facility] HEMATOLOGY Lymphocytes 33.6 % 20.0 - 11/14 Normal [place] 40.0 [facility] HEMATOLOGY Segs-Bands # 4.6 K/CMM 1.5 - 8.1 11/14 Normal [facility] HEMATOLOGY Basophils 0.7 % 0.0 - 1.0 11/14 Normal [facility] HEMATOLOGY Eosinophils 2.1 % 0.0 - 4.0 11/14 Normal [facility] CHEMISTRY Lipase Lvl 43 unit/L 73 - 393 11/13 LOW [facility] CHEMISTRY Amylase Lvl 14 unit/L 25 - 115 11/13 LOW [facility] CHEMISTRY A/G Ratio 0.8 0.7 - 1.6 11/13 Normal [facility] CHEMISTRY AST 56 unit/L 0 - 37 11/13 HI [facility] CHEMISTRY Alk Phos 67 unit/L 39 - 136 11/13 Normal [facility] CHEMISTRY Globulin 2.9 g/dL 2.0 - 4.0 11/13 Normal [facility] CHEMISTRY Total Protein 5.3 g/dL 6.4 - 8.4 11/13 LOW [facility] CHEMISTRY Albumin Lvl 2.4 g/dL 3.5 - 5.0 11/13 LOW [facility] CHEMISTRY ALT 41 unit/L 0 - 65 11/13 Normal [facility] CHEMISTRY Bili Indirect 0.3 mg/dL 0.0 - 1.0 11/13 Normal [facility] CHEMISTRY Bili Direct 0.1 mg/dL 0.0 - 0.3 11/13 Normal [facility] CHEMISTRY Bili Total 0.4 mg/dL 0.2 - 1.3 11/13 Normal [facility] CHEMISTRY eGFR 137 11/13 NA 7Result Comment: The eGFR is calculated using the CKD-EPI formula. In most young, healthy individuals the eGFR will be > 90 mL/min/1.73m2. The eGFR declines with age. An eGFR of 60-89 may be normal in [facility] mL/min/1. some populations, particularly the elderly, for whom the CKD-EPI formula has not been extensively validated. Use of the eGFR is not recommended in the following populations: [address] Individuals with unstable creatinine concentrations, including [...] AGAP 17.3 meq/L 10.0 - 11/13 Normal [facility] 20.0 [facility] CHEMISTRY Calcium Lvl 6.7 mg/dL 8.5 - 10.5 11/13 CRIT 13Result Comment: [facility] Result(s) called to _hansel gustafson at _11/13/2012 06:59:47 CDT bylg. Read back OK. CHEMISTRY CO2 17 meq/L 24 - 32 11/13 LOW [facility] CHEMISTRY Chloride Lvl 111 meq/L 95 - 109 11/13 HI [facility] CHEMISTRY Potassium Lvl 3.3 meq/L 3.5 - 5.1 11/13 LOW 5Result Comment: [facility] Slightly Hemolyzed. CHEMISTRY Sodium Lvl 142 meq/L 135 - 145 11/13 Normal [facility] CHEMISTRY Creatinine 0.3 mg/dL 0.5 - 1.4 11/13 LOW [facility] l /2012 [facility] CHEMISTRY BUN 3 mg/dL 7 - 22 11/13 [facility] CHEMISTRY Glucose Lvl 104 mg/dL 70 - 99 11/13 HI 10Interpretive Data: Adult reference range values reflect the clinical guidelines of the [place] [employer]. Medical Center CHEMISTRY Magnesium Lvl 1.3 mg/dL 1.8 - 2.4 11/13 LOW [facility] CHEMISTRY Phosphorus 2.8 mg/dL 2.5 - 4.5 11/13 Normal [facility] CHEMISTRY Ca Ion 1.01 1.16 - 11/13 [facility] [place] mMol/L 1. [facility] CHEMISTRY Ca Norm 1.07 1.16 - 11/13 [facility] mMol/L 1. [facility] CHEMISTRY Ca Norm mgdL 4.28 mg/dL 4.65 - 11/13 [facility] 5. [facility] CHEMISTRY Ca Ion mgdL 4.04 mg/dL 4.65 - 11/13 [facility] 5.20 Medical Center HEMATOLOGY MCV 78.6 fL 81.0 - 11/13 [facility] 99.0 /2012 [facility] HEMATOLOGY MPV 9.1 fL 7.4 - 10.4 11/13 Normal [facility] HEMATOLOGY MCHC 31.1 g/dL 32.0 - 11/13 [facility] [place] 36.0 /2012 [facility] HEMATOLOGY MCH 24.4 pg 27.0 - 11/13 [facility] 31.0 [facility] HEMATOLOGY Hct 29.4 % 36.0 - 03 [facility] [place] 48.0 /2012 [facility] HEMATOLOGY RDW 19.1 % 11.5 - 03 [facility] [place] 14.5 Medical Center HEMATOLOGY Platelet 192 K/CMM 133 - 450 11/13 Normal [facility] HEMATOLOGY Hgb 9.1 g/dL 12.0 - 03 [facility] [place] 16.0 /2012 [facility] HEMATOLOGY RBC 3.74 M/CMM 4.20 - 03 [facility] [place] 5.40 /2012 [facility] HEMATOLOGY WBC 6.8 K/CMM 3.7 - 10.4 11/13 Normal [facility] HEMATOLOGY Plt Morph Normal 11/13 Normal Medical (11/13/2012 05:00:00) Center HEMATOLOGY Atypical 0.0 % <=0.0 11/13 Normal [facility] Lymph [facility] HEMATOLOGY RBC Morph Normal 11/13 Normal [facility] (11/13/2012 05:00:00) [place] HEMATOLOGY Eosinophils 2.0 % 0.0 - 4.0 11/13 Normal [facility] HEMATOLOGY Bands 0.0 % 0.0 - 11.0 11/13 Normal [facility] HEMATOLOGY Segs 51.0 % 45.0 - 11/13 Normal [facility] 75.0 [facility] HEMATOLOGY Eosinophils # 0.1 K/CMM 0.0 - 0.5 11/13 Normal [facility] HEMATOLOGY Segs-Bands # 3.5 K/CMM 1.5 - 8.1 11/13 Normal [facility] HEMATOLOGY Monocytes 5.0 % 2.0 - 12.0 11/13 Normal [facility] HEMATOLOGY Lymphocytes 42.0 % 20.0 - 11/13 HI [facility] 40.0 [facility] HEMATOLOGY Monocytes # 0.3 K/CMM 0.0 - 0.8 11/13 Normal [facility] HEMATOLOGY Lymphocytes # 2.9 K/CMM 1.0 - 5.5 11/13 [facility] INFECTIOUS C difficile Negative 1 Negative 11/13 Normal 1Interpretive Data: 2Duche illumigene Clostridium difficile assay utilizes loop-mediated isothermal DNA amplification (LAMP) technology to detect a 204 bp region of the tcdA gene within the PaLoc gene [facility] segment present in all known toxigenic C. difficile strains. [facility] (11/12/2012 21:54:26) [place] The assay utilizes FDA cleared IVD reagents. Performance characteristics have been verified by the [facility] within the [facility]. The [facility] is authorized under the Clinical Laboratory Improvement Amendment of 1988 (CLIA-88) to perform high complexity testing. CHEMISTRY Total CK 25 unit/L 12 - 191 11/12 Normal [facility] CHEMISTRY Troponin-I null 0.00 - 11/12 Normal [facility] 0.40 [facility] CHEMISTRY eGFR 88 11/12 NA 8Result Comment: The eGFR is calculated using the CKD-EPI formula. In most young, healthy individuals the eGFR will be > 90 mL/min/1.73m2. The eGFR declines with age. An eGFR of 60-89 may be normal in [facility] mL/min/1. some populations, particularly the elderly, for whom the CKD-EPI formula has not been extensively validated. Use of the eGFR is not recommended in the following populations: Medical [facility] Individuals with unstable creatinine concentrations, including [...] AGAP 13.7 meq/L 10.0 - 11/12 Normal [facility] 20.0 [facility] CHEMISTRY Calcium Lvl 8.5 mg/dL 8.5 - 10.5 11/12 Normal [facility] CHEMISTRY CO2 25 meq/L 24 - 32 11/12 Normal [facility] CHEMISTRY Potassium Lvl 3.7 meq/L 3.5 - 5.1 11/12 Normal [facility] CHEMISTRY Sodium Lvl 138 meq/L 135 - 145 11/12 Normal [facility] CHEMISTRY Chloride Lvl 103 meq/L 95 - 109 11/12 Normal [facility] CHEMISTRY Creatinine 0.8 mg/dL 0.5 - 1.4 11/12 Normal [facility] CHEMISTRY BUN 5 mg/dL 7 - 22 11/12 LOW [facility] CHEMISTRY Glucose Lvl 40 mg/dL 70 - 99 11/12 CRIT 12Interpretive Data: Adult reference range values reflect the clinical guidelines of the [place] [employer]. [facility] CHEMISTRY Ca Norm mgdL 4.20 mg/dL 4.65 - 11/12 [facility] 01.23 [facility] CHEMISTRY Ca Norm 1.05 1.16 - 11/12 LOW [place] mMol/L 1. [facility] CHEMISTRY Ca Ion mgdL 4.00 mg/dL 4.65 - 11/12 LOW [facility] 01.23 [facility] CHEMISTRY Ca Ion 1.00 1.16 - 11/12 LOW [facility] mMol/L 1.30 [facility] CHEMISTRY Magnesium Lvl 1.9 mg/dL 1.8 - 2.4 11/12 Normal [facility] CHEMISTRY Phosphorus 3.2 mg/dL 2.5 - 4.5 11/12 Normal [facility] HEMATOLOGY MCHC 32.0 g/dL 32.0 - 11/12 Normal [place] 36.0 /2012 [facility] HEMATOLOGY MCH 24.1 pg 27.0 - 11/12 LOW [place] 31.0 [facility] HEMATOLOGY MCV 75.3 fL 81.0 - 11/12 LOW [facility] 99.0 /2012 [facility] HEMATOLOGY WBC 9.2 K/CMM 3.7 - 10.4 11/12 Normal [facility] HEMATOLOGY Platelet 233 K/CMM 133 - 450 11/12 Normal [facility] HEMATOLOGY MPV 9.1 fL 7.4 - 10.4 11/12 Normal [facility] HEMATOLOGY RDW 19.0 % 11.5 - 11/12 HI [place] 14.5 [facility] HEMATOLOGY RBC 4.19 M/CMM 4.20 - 11/12 [facility] 5.40 /2012 [facility] HEMATOLOGY Hgb 10.1 g/dL 12.0 - 11/12 LOW [facility] 16.0 [facility] HEMATOLOGY Hct 31.6 % 36.0 - 11/12 [facility] 48.0 /2012 [facility] HEMATOLOGY Hypochrom Slight None Seen 11/12 Normal [facility] (11/12/2012 00:19:00) Center HEMATOLOGY Large Plt Slight None Seen 11/12 ABN Medical *ABN* Center (11/12/2012 00:19:00) HEMATOLOGY Atypical 0.0 % <=0.0 11/12 Normal [facility] Lymphs [facility] HEMATOLOGY Basophils 1.0 % 0.0 - 1.0 11/12 Normal [facility] HEMATOLOGY Lymphocytes 39.0 % 20.0 - 11/12 Normal [facility] 40.0 [facility] HEMATOLOGY Bands 0.0 % 0.0 - 11.0 11/12 Normal [facility] HEMATOLOGY Eosinophils 2.0 % 0.0 - 4.0 11/12 Normal [facility] HEMATOLOGY Monocytes 6.0 % 2.0 - 12.0 11/12 Normal [facility] HEMATOLOGY Segs 52.0 % 45.0 - 11/12 Normal [place] 75.0 [facility] HEMATOLOGY Basophils # 0.1 K/CMM 0.0 - 0.2 11/12 Normal [facility]2012 [facility] HEMATOLOGY Monocytes # 0.6 K/CMM 0.0 - 0.8 11/12 Normal [facility]2012 [facility] HEMATOLOGY Lymphocytes # 3.6 K/CMM 1.0 - 5.5 11/12 Normal [facility] HEMATOLOGY Segs-Bands # 4.8 K/CMM 1.5 - 8.1 11/12 Normal [facility] HEMATOLOGY Eosinophils # 0.2 K/CMM 0.0 - 0.5 11/12 Normal [facility] HEMATOLOGY Microcyte 1+ None Seen 11/11 [facility] [place] (11/11/2012 03:41:00) HEMATOLOGY Basophils # 0.1 K/CMM 0.0 - 0.2 11/11 Normal [facility] HEMATOLOGY Basophils 0.7 % 0.0 - 1.0 11/11 Normal [facility] HEMATOLOGY Microcyte 1+ None Seen 11/09 [facility]* [place] (11/09/2012 05:12:00) URINALYSIS UA pH 5.0 5.0 - 8.0 11/08 Normal 2012 [facility] URINALYSIS UA Protein 20 mg/dL Negative 11/08 [facility] [place] (11/07/2012 20:54:00) URINALYSIS UA Turbidity Slight Clear 11/08 [facility] [place] (11/07/2012 20:54:00) URINALYSIS UA Spec Grav 1.010 <=1.030 11/08 Normal [facility] URINALYSIS UA Color Yellow Yellow 11/08 [facility] [place] (11/07/2012 20:54:00) URINALYSIS UA Bacteria Moderate /HPF None Seen 11/08 [facility] [place] (11/07/2012 20:54:00) URINALYSIS UA Mucus Few /LPF None Seen 11/08 [facility] [place] (11/07/2012 20:54:00) URINALYSIS UA WBC null 0 - 5 11/08 [facility] URINALYSIS UA RBC 4 /HPF 0 - 2 11/08 [facility] URINALYSIS UA Sq Epi Moderate /LPF Few 11/08 ABN [facility] *ABN* Center (11/07/2012 20:54:00) URINALYSIS UA Leuk Est Large Negative 11/08 [facility] *ABN* Center (11/07/2012 20:54:00) URINALYSIS UA Blood Trace Negative 11/08 [facility] [place] (11/07/2012 20:54:00) URINALYSIS UA Nitrite Negative Negative 11/08 Normal [facility] (11/07/2012 20:54:00) Center URINALYSIS UA Ketones 40 mg/dL Negative 11/08 [facility] [place] (11/07/2012 20:54:00) URINALYSIS UA Bili Negative Negative 11/08 [facility] *NA* Center (11/07/2012 20:54:00) URINALYSIS Micro? Performed 11/08 [facility] (11/07/2012 20:54:00) URINALYSIS UA <=1.0 0.1 - 1.0 11/08 [facility] Urobilinogen mg/dL Medical
*NA*< Center br/>(11/07 20:54:00) <sup> </sup> URINALYSIS UA Glucose >=1000mg/d 11/08 NA [facility] URINALYSIS UA Hyal Cast 37 /LPF 0 - 2 11/08 [facility] URINALYSIS UA Ketones 40 mg/dL Negative 11/07 [facility] *ABN* Center (11/07/2012 06:24:57) CHEMISTRY Hgb A1C [...] to lower CHEMISTRY Ketone 2.20 <=0.27 11/06 [facility] [place] Quantitative mmol/L /2012 Medical [place] CHEMISTRY U Osmolality 207 300 - 800 11/06 LOW [place] mOsm/kg Medical [place] CHEMISTRY POC A %FIO2 21.0 % 18.0 - 11/06 Normal [facility] 100.0 Medical [place] CHEMISTRY POC A LA 0.9 mMol/L 0.5 - 2.2 11/06 Normal [facility] CHEMISTRY POC A Glu 281 mg/dL 70 - 99 11/06 HI [facility] CHEMISTRY POC A Temp 37.0 Abby 11/06 NA [facility] CHEMISTRY POC A Source ART 11/06 NA [facility] CHEMISTRY POC A pH 7.45 7.35 - 11/06 Normal [facility] 7.45 [facility] CHEMISTRY POC A HCO3 24 mMol/L 22 - 26 11/06 Normal [facility] CHEMISTRY POC A PCO2 35 mm[Hg] 35 - 45 11/06 Normal [facility] CHEMISTRY POC A PO2 85 mm[Hg] 80 - 100 11/06 Normal [facility] CHEMISTRY POC A BE 0 mMol/L -2-2 - 2 11/06 Normal [facility] CHEMISTRY POC A O2 Sat 97.0 % 95.0 - 11/06 Normal [facility] 100.0 [facility] CHEMISTRY POC A Na 123 meq/L 135 - 145 11/06 LOW [facility] CHEMISTRY POC A Hct 31.0 % 36.0 - 11/06 [facility] 48.0 [facility] CHEMISTRY POC A Ca Ion 1.11 1.16 - 11/06 [facility] mMol/L 1.30 [facility] CHEMISTRY POC A K 3.7 meq/L 3.5 - 5.1 11/06 Normal [facility] CHEMISTRY POC A BE -4 mMol/L -2-2 - 2 11/06 LOW [facility] CHEMISTRY POC A HCO3 20 mMol/L 22 - 26 11/06 LOW [facility] CHEMISTRY POC A Source ART 11/06 NA [facility] CHEMISTRY POC A Temp 37.0 Abby 11/06 NA [facility] CHEMISTRY POC A pH 7.42 7.35 - 03 Normal [facility] 7.45 /2012 [facility] CHEMISTRY POC A PO2 81 mm[Hg] 80 - 100 11/06 Normal [facility] CHEMISTRY POC A O2 Sat 96.0 % 95.0 - 03 Normal [facility] 100.0 [facility] CHEMISTRY POC A PCO2 31 mm[Hg] 35 - 45 11/06 LOW [facility] CHEMISTRY POC A %FIO2 21.0 % 18.0 - 03 Normal [facility] 100.0 /2012 [facility] Microbiolog Culture: 03 [facility] y Urine /2012 [facility] CHEMISTRY Troponin-I null 0.00 - 11/06 Normal [facility] 0.40 /2012 [facility] CHEMISTRY Troponin-T null 0.000 - 11/06 Normal [facility] 0.100 /2012 [facility] CHEMISTRY Total CK 48 unit/L 12 - 191 11/06 Normal [facility] URINALYSIS UA <=1.0 0.1 - 1.0 11/06 [facility] Urobilinogen mg/dL Medical
*NA*< Center br/>(11/06 03:15:40) <sup> </sup> URINALYSIS UA Leuk Est Large Negative 11/06 [facility] *ABN* Center (11/06/2012 03:15:40) URINALYSIS UA Sq Epi Moderate /LPF Few 11/06 [facility] *ABN* Center (11/06/2012 03:15:40) URINALYSIS UA Mucus Few /LPF None Seen 11/06 [facility] Medical *NA* Center (11/06/2012 03:15:40) URINALYSIS UA Nitrite Negative Negative 11/06 Normal [facility] (11/06/2012 03:15:40) Center URINALYSIS UA Bacteria Occasional /HPF None Seen 11/06 [facility] *NA* Center (11/06/2012 03:15:40) URINALYSIS UA WBC 67 /HPF 0 - 5 11/06 [facility] URINALYSIS UA Blood Negative Negative 11/06 Normal [facility] (11/06/2012 03:15:40) Center URINALYSIS UA Bili Negative Negative 11/06 [facility] Medical *NA* Center (11/06/2012 03:15:40) URINALYSIS UA Ketones 60 mg/dL Negative 11/06 [facility] Medical *ABN* Center (11/06/2012 03:15:40) URINALYSIS UA pH 5.0 5.0 - 8.0 11/06 Normal [facility] URINALYSIS UA Glucose >=1000 mg/dL Negative 11/06 [facility] Medical *ABN* Center (11/06/2012 03:15:40) URINALYSIS UA Spec Grav 1.014 <=1.030 11/06 Normal [facility] URINALYSIS UA Protein Negative mg/dL Negative 11/06 Normal [facility] (11/06/2012 03:15:40) Center URINALYSIS UA Turbidity Slight Clear 11/06 ABN Medical *ABN* Center (11/06/2012 03:15:40) URINALYSIS UA Color Yellow Yellow 11/06 NA [facility] *NA* Center (11/06/2012 03:15:40) CHEMISTRY Troponin-I 0.02 ng/mL 0.00 - 11/06 Normal [facility] 0.40 [facility] CHEMISTRY Total CK 30 unit/L 12 - 191 11/06 Normal [facility] CHEMISTRY Troponin-T null 0.000 - 11/06 Normal [facility] 0.100 [facility] CHEMISTRY Ketone 3.00 <=0.27 11/06 [facility] Quantitative mmol/L /2012 [facility] CHEMISTRY Lipase Lvl 89 unit/L 73 - 393 11/06 Normal [facility] CHEMISTRY Globulin 4.3 g/dL 2.0 - 4.0 11/06 HI [facility] CHEMISTRY A/G Ratio 0.9 0.7 - 1.6 11/06 Normal [facility] CHEMISTRY B/C Ratio 7 6 - 25 11/06 Normal [facility] CHEMISTRY Albumin Lvl 3.7 g/dL 3.5 - 5.0 11/06 Normal [facility] CHEMISTRY Total Protein 8.0 g/dL 6.4 - 8.4 11/06 Normal [facility] CHEMISTRY ALT 62 unit/L 0 - 65 11/06 Normal [facility] CHEMISTRY Alk Phos 119 unit/L 39 - 136 11/06 Normal [facility] CHEMISTRY Bili Total 0.5 mg/dL 0.2 - 1.3 11/06 Normal [facility] CHEMISTRY AST 44 unit/L 0 - 37 11/06 HI Medical [place] HEMATOLOGY Polychrom Slight None Seen 11/06 Normal Medical (11/05/2012 20:40:00) Center HEMATOLOGY Hypochrom Slight None Seen 11/06 Normal Medical (11/05/2012 20:40:00) Center HEMATOLOGY Bands 1.0 % 0.0 - 11.0 11/06 Normal [facility] HEMATOLOGY Anisocyte 1+ None Seen 11/06 ABN Medical *ABN* Center (11/05/2012 20:40:00) HEMATOLOGY Atypical 0.0 % <=0.0 11/06 Normal [facility] HEMATOLOGY Macrocyte 1+ None Seen 11/06 [facility] Medical *ABN* [place] (11/05/2012 20:40:00) HEMATOLOGY Plt Morph Normal 11/06 Normal [facility] (11/05/2012 20:40:00) Center HEMATOLOGY INR 0.98 0.85 - 11/06 Normal 16Interpretive Data: RECOMMENDED RANGES FOR PROTIME INR: [facility] 1. 2.0-3.0 for most medical and surgical thromboembolic states. Medical 2.5-3.5 for artificial heart valves and recurrent embolism. Center INR SHOULD BE USED ONLY FOR PATIENTS ON STABLE ANTICOAGULANT THERAPY. HEMATOLOGY PT 13.2 s 12.0 - 11/06 Normal [facility] 14.7 Medical [place] HEMATOLOGY PTT 26.4 s 22.9 - 11/06 Normal 17Interpretiv [facility] 35.8 e Data: [facility] Heparin Center Therapeutic Range: 57 - 92 Seconds BEDSIDE Gluc POC null - 11/01 CRIT 3Interpretive [facility] GLUCOSE Lifscn Data: Medical TESTING Center Upper Reportable Limit: 200 mg/dL. BEDSIDE Comment1 Notify 11/01 NA [facility] GLUCOSE RN/ /2012 Medical TESTING Center BEDSIDE Gluc POC 237 mg/dL - 10/31 HI 4Interpretive [facility] GLUCOSE Lifscn Data: Medical TESTING Center Upper Reportable Limit: 200 mg/dL. BEDSIDE Gluc POC 357 mg/dL - 10/31 HI 5Interpretive [facility] GLUCOSE Lifscn Data: [facility] Upper Reportable Limit: 200 mg/dL. BEDSIDE Comment1 Notify 10/31 NA [facility] GLUCOSE RN/ [facility] CHEMISTRY Phosphorus 4.2 mg/dL 2.5 - 4.5 10/31 Normal [facility] CHEMISTRY Ca Norm mgdL 4.64 mg/dL 4.65 - 10/31 LOW [facility] 5. [facility] CHEMISTRY Ca Ion mgdL 4.44 mg/dL 4.65 - 10/31 LOW [facility] 5.20 [facility] CHEMISTRY Ca Norm 1.16 1.16 - 10/31 Normal [place] mMol/L 1. [facility] CHEMISTRY Ca Ion 1.11 1.16 - 10/31 LOW [facility] mMol/L . [facility] CHEMISTRY AGAP 16.9 meq/L 10.0 - 10/31 Normal [facility] 20.0 [facility] CHEMISTRY eGFR 67 10/31 NA 7Result Comment: The eGFR is calculated using the CKD-EPI formula. In most young, healthy individuals the eGFR will be > 90 mL/min/1.73m2. The eGFR declines with age. An eGFR of 60-89 may be normal in [facility] mL/min/1.7 some populations, particularly the elderly, for whom the CKD-EPI formula has not been extensively validated. Use of the eGFR is not recommended in the following populations: [place] [address] Center Individuals with unstable creatinine concentrations, including [...] 1.0 mg/dL 0.5 - 1.4 10/31 Normal [facility] Lvl [facility] CHEMISTRY Sodium Lvl 133 meq/L 135 - 145 10/31 LOW [facility] CHEMISTRY Calcium Lvl 8.3 mg/dL 8.5 - 10.5 10/31 LOW [facility] CHEMISTRY Potassium Lvl 3.9 meq/L 3.5 - 5.1 10/31 Normal [facility] CHEMISTRY Chloride Lvl 94 meq/L 95 - 109 10/31 LOW [facility] CHEMISTRY CO2 26 meq/L 24 - 32 10/31 Normal [facility] CHEMISTRY BUN 8 mg/dL 7 - 22 10/31 Normal [facility] CHEMISTRY Glucose Lvl 75 mg/dL 70 - 99 10/31 Normal 10Interpretive Data: Adult reference range values reflect the clinical guidelines of the [place] [employer]. [facility] CHEMISTRY Magnesium Lvl 1.9 mg/dL 1.8 - 2.4 10/31 Normal [facility] HEMATOLOGY MPV 9.4 fL 7.4 - 10.4 10/31 Normal [facility] HEMATOLOGY Hgb 9.7 g/dL 12.0 - 10/31 [facility] 16.0 [facility] HEMATOLOGY RBC 4.06 M/CMM 4.20 - 10/31 [facility] 5.40 [facility] HEMATOLOGY MCV 74.3 fL 81.0 - 10/31 [facility] 99.0 [facility] HEMATOLOGY Hct 30.2 % 36.0 - 10/31 [facility] 48.0 [facility] HEMATOLOGY MCHC 32.2 g/dL 32.0 - 10/31 Normal [facility] 36.0 [facility] [facility] HEMATOLOGY MCH 23.9 pg 27.0 - 10/31 [facility] 31.0 [facility] HEMATOLOGY Platelet 199 K/CMM 133 - 450 10/31 Normal [facility] HEMATOLOGY RDW 17.5 % 11.5 - 10/31 [facility] 14.5 [facility] HEMATOLOGY WBC 9.4 K/CMM 3.7 - 10.4 10/31 Normal [facility] HEMATOLOGY Lymphocytes # 2.7 K/CMM 1.0 - 5.5 10/31 Normal [facility] HEMATOLOGY Basophils 0.6 % 0.0 - 1.0 10/31 Normal [facility] HEMATOLOGY Segs-Bands # 5.2 K/CMM 1.5 - 8.1 10/31 [facility] HEMATOLOGY Microcyte 1+ None Seen 10/31 [facility] Medical *ABN* Center (10/31/2012 04:00:00) HEMATOLOGY Monocytes # 1.1 K/CMM 0.0 - 0.8 10/31 [facility] HEMATOLOGY Eosinophils # 0.3 K/CMM 0.0 - 0.5 10/31 Normal [facility] HEMATOLOGY Basophils # 0.1 K/CMM 0.0 - 0.2 10/31 Normal [facility] HEMATOLOGY Segs 55.2 % 45.0 - 10/31 Normal [facility] 75.0 [facility] HEMATOLOGY Monocytes 11.8 % 2.0 - 12.0 10/31 Normal [facility] HEMATOLOGY Lymphocytes 28.9 % 20.0 - 10/31 Normal [place] 40.0 [facility] HEMATOLOGY Eosinophils 3.5 % 0.0 - 4.0 10/31 Normal [facility] BEDSIDE Comment1 Notify 10/31 NA [facility] GLUCOSE RN/MD [facility] CHEMISTRY Ca Norm mgdL 4.92 mg/dL 4.65 - 10/30 Normal [facility] 5. [facility] CHEMISTRY Ca Ion mgdL 4.76 mg/dL 4.65 - 10/30 Normal [facility] 5. [facility] CHEMISTRY Ca Norm 1.23 1.16 - 10/30 Normal [facility] mMol/L 1. [facility] CHEMISTRY Ca Ion 1.19 1.16 - 10/30 Normal [facility] mMol/L 1. [facility] CHEMISTRY Phosphorus 3.8 mg/dL 2.5 - 4.5 10/30 Normal [facility] CHEMISTRY Magnesium Lvl 1.9 mg/dL 1.8 - 2.4 10/30 Normal [facility] CHEMISTRY eGFR 88 10/30 NA 8Result Comment: The eGFR is calculated using the CKD-EPI formula. In most young, healthy individuals the eGFR will be > 90 mL/min/1.73m2. The eGFR declines with age. An eGFR of 60-89 may be normal in [facility] mL/min/1.7 /2012 some populations, particularly the elderly, for whom the CKD-EPI formula has not been extensively validated. Use of the eGFR is not recommended in the following populations: [address] Individuals with unstable creatinine concentrations, including [...] the clinical guidelines of the [place] [employer]. [facility] CHEMISTRY Creatinine 0.8 mg/dL 0.5 - 1.4 10/30 Normal [facility] Lvl [facility] CHEMISTRY BUN 6 mg/dL 7 - 22 10/30 LOW [facility] CHEMISTRY Sodium Lvl 132 meq/L 135 - 145 10/30 LOW [facility] CHEMISTRY Calcium Lvl 8.5 mg/dL 8.5 - 10.5 10/30 Normal [facility] CHEMISTRY CO2 29 meq/L 24 - 32 10/30 Normal [facility] CHEMISTRY Chloride Lvl 92 meq/L 95 - 109 10/30 LOW [facility] CHEMISTRY Potassium Lvl 3.8 meq/L 3.5 - 5.1 10/30 Normal [facility] CHEMISTRY AGAP 14.8 meq/L 10.0 - 10/30 Normal [facility] 20.0 [facility] HEMATOLOGY Platelet 245 K/CMM 133 - 450 10/30 Normal [facility] HEMATOLOGY MPV 9.4 fL 7.4 - 10.4 10/30 Normal [facility] HEMATOLOGY Hct 33.1 % 36.0 - 10/30 [facility] 48.0 [facility] HEMATOLOGY RBC 4.47 M/CMM 4.20 - 10/30 Normal [facility] 5.40 /2012 Medical [place] HEMATOLOGY WBC 11.0 K/CMM 3.7 - 10.4 10/30 [facility] HEMATOLOGY Hgb 10.6 g/dL 12.0 - 10/30 [facility] 16.0 [facility] HEMATOLOGY MCHC 31.9 g/dL 32.0 - 10/30 LOW [facility] 36.0 [facility] HEMATOLOGY MCV 74.1 fL 81.0 - 10/30 [facility] 99.0 [facility] [place] HEMATOLOGY MCH 23.7 pg 27.0 - 10/30 LOW [facility] 31.0 [facility] HEMATOLOGY RDW 16.9 % 11.5 - 10/30 [place] [facility] 14.5 /2012 Medical Center HEMATOLOGY PTT 28.1 s 22.9 - 10/30 Normal 25Interpretiv [facility] 35.8 /2012 e Data: [facility] Therapeutic Range: 57 - 92 Seconds HEMATOLOGY PT 13.7 s 12.0 - 10/30 Normal [facility] 14.7 [facility] HEMATOLOGY INR 1.03 0.85 - 10/30 Normal 22Interpretive Data: RECOMMENDED RANGES FOR PROTIME INR: [facility] 09.22 2.0-3.0 for most medical and surgical thromboembolic states. Medical 2.5-3.5 for artificial heart valves and recurrent embolism. Center INR SHOULD BE USED ONLY FOR PATIENTS ON STABLE ANTICOAGULANT THERAPY. HEMATOLOGY Segs-Bands # 7.5 K/CMM 1.5 - 8.1 10/30 Normal [facility] HEMATOLOGY Basophils 0.4 % 0.0 - 1.0 10/30 Normal [facility] HEMATOLOGY Monocytes # 1.1 K/CMM 0.0 - 0.8 10/30 [place] [facility] HEMATOLOGY Lymphocytes # 2.1 K/CMM 1.0 - 5.5 10/30 Normal [facility] HEMATOLOGY Microcyte 1+ None Seen 10/30 ABN [facility] *ABN* Center (10/30/2012 00:20:00) HEMATOLOGY Eosinophils # 0.2 K/CMM 0.0 - 0.5 10/30 Normal [facility] HEMATOLOGY Segs 68.3 % 45.0 - 10/30 Normal [facility] 75.0 [facility] HEMATOLOGY Lymphocytes 18.9 % 20.0 - 10/30 LOW [facility] 40.0 [facility] HEMATOLOGY Monocytes 10.3 % 2.0 - 12.0 10/30 Normal [facility] HEMATOLOGY Eosinophils 2.1 % 0.0 - 4.0 10/30 Normal [facility] CHEMISTRY Magnesium Lvl 2.1 mg/dL 1.8 - 2.4 10/29 Normal [facility] CHEMISTRY Phosphorus 4.1 mg/dL 2.5 - 4.5 10/29 Normal [facility] CHEMISTRY Ca Ion mgdL 3.96 mg/dL 4.65 - 10/29 LOW [facility] 5. [facility] CHEMISTRY Ca Norm 1.01 1.16 - 10/29 LOW [place] mMol/L 1. [facility] CHEMISTRY Ca Ion 0.99 1.16 - 10/29 LOW [facility] mMol/L 1. [facility] CHEMISTRY Ca Norm mgdL 4.04 mg/dL 4.65 - 10/29 LOW [facility] 5.20 [facility] CHEMISTRY eGFR 104 10/29 NA 9Result Comment: The eGFR is calculated using the CKD-EPI formula. In most young, healthy individuals the eGFR will be > 90 mL/min/1.73m2. The eGFR declines with age. An eGFR of 60-89 may be normal in [facility] mL/min/1. some populations, particularly the elderly, for whom the CKD-EPI formula has not been extensively validated. Use of the eGFR is not recommended in the following populations: [address] Individuals with unstable creatinine concentrations, including [...] 0.7 mg/dL 0.5 - 1.4 10/29 Normal [facility] CHEMISTRY BUN 3 mg/dL 7 - 10/29 LOW [facility] CHEMISTRY Calcium Lvl 8.9 mg/dL 8.5 - 10.5 10/29 Normal [facility] CHEMISTRY Glucose Lvl 90 mg/dL 70 - 99 10/29 Normal 12Interpretive Data: Adult reference range values reflect the clinical guidelines of the [place] [employer]. [facility] CHEMISTRY Chloride Lvl 99 meq/L 95 - 109 10/29 Normal [facility] CHEMISTRY Potassium Lvl 4.4 meq/L 3.5 - 5.1 10/29 Normal [facility] CHEMISTRY CO2 27 meq/L 24 - 32 10/29 Normal [facility] CHEMISTRY Sodium Lvl 139 meq/L 135 - 145 10/29 Normal [facility] CHEMISTRY AGAP 17.4 meq/L 10.0 - 10/29 Normal [facility] 20.0 [facility] HEMATOLOGY PTT 23.7 s 22.9 - 10/29 Normal 26Interpretiv [facility] 35.8 e Data: [facility] Therapeutic Range: 57 - 92 Seconds HEMATOLOGY PT 13.4 s 12.0 - 10/29 Normal [facility] 14.7 [facility] HEMATOLOGY INR 1.00 0.85 - 10/29 Normal 23Interpretive Data: RECOMMENDED RANGES FOR PROTIME INR: [facility] 1. 2.0-3.0 for most medical and surgical thromboembolic states. Medical 2.5-3.5 for artificial heart valves and recurrent embolism. Center INR SHOULD BE USED ONLY FOR PATIENTS ON STABLE ANTICOAGULANT THERAPY. HEMATOLOGY RDW 17.1 % 11.5 - 10/29 [place] [facility] 14.5 /2012 [facility] HEMATOLOGY MCH 23.8 pg 27.0 - 10/29 LOW [facility] 31.0 /2012 [facility] HEMATOLOGY MCHC 32.2 g/dL 32.0 - 10/29 Normal [facility] 36.0 /2012 [facility] HEMATOLOGY Hct 33.6 % 36.0 - 10/29 [facility] 48.0 /2012 [facility] HEMATOLOGY MCV 74.0 fL 81.0 - 10/29 LOW [facility] 99.0 /2012 [facility] HEMATOLOGY Platelet 233 K/CMM 133 - 450 10/29 Normal [facility] HEMATOLOGY MPV 9.9 fL 7.4 - 10.4 10/29 Normal [facility] HEMATOLOGY RBC 4.54 M/CMM 4.20 - 10/29 [facility] 5.40 /2012 [facility] HEMATOLOGY Hgb 10.8 g/dL 12.0 - 10/29 LOW [facility] 16.0 /2012 [facility] HEMATOLOGY WBC 9.7 K/CMM 3.7 - 10.4 10/29 Normal [facility] HEMATOLOGY Lymphocytes # 2.6 K/CMM 1.0 - 5.5 10/29 Normal [facility] HEMATOLOGY Basophils 0.7 % 0.0 - 1.0 10/29 Normal [facility] HEMATOLOGY Segs-Bands # 6.0 K/CMM 1.5 - 8.1 10/29 Normal [facility] HEMATOLOGY Monocytes # 0.7 K/CMM 0.0 - 0.8 10/29 Normal [facility] HEMATOLOGY Eosinophils # 0.3 K/CMM 0.0 - 0.5 10/29 Normal [facility] HEMATOLOGY Basophils # 0.1 K/CMM 0.0 - 0.2 10/29 Normal [facility] HEMATOLOGY Microcyte 1+ None Seen 10/29 ABN Medical *ABN* Center (10/29/2012 00:56:00) HEMATOLOGY Segs 61.5 % 45.0 - 10/29 Normal [facility] 75.0 [facility] HEMATOLOGY Lymphocytes 26.8 % 20.0 - 10/29 Normal [facility] 40.0 [facility] HEMATOLOGY Monocytes 7.6 % 2.0 - 12.0 10/29 Normal [facility] HEMATOLOGY Eosinophils 3.4 % 0.0 - 4.0 10/29 Normal [facility] CHEMISTRY Amylase Lvl 27 unit/L 25 - 115 10/28 Normal [facility] CHEMISTRY Lipase Lvl 58 unit/L 73 - 393 10/28 LOW [facility] CHEMISTRY Bili Indirect 0.2 mg/dL 0.0 - 1.0 10/28 Normal [facility] CHEMISTRY Globulin 3.4 g/dL 2.0 - 4.0 10/28 Normal [facility] CHEMISTRY A/G Ratio 0.8 0.7 - 1.6 10/28 Normal [facility] CHEMISTRY AST 24 unit/L 0 - 37 10/28 Normal [facility] CHEMISTRY Bili Total 0.3 mg/dL 0.2 - 1.3 10/28 Normal [facility] CHEMISTRY Total Protein 6.2 g/dL 6.4 - 8.4 10/28 LOW [facility] CHEMISTRY ALT 23 unit/L 0 - 65 10/28 Normal [facility] CHEMISTRY Albumin Lvl 2.8 g/dL 3.5 - 5.0 10/28 LOW [facility] CHEMISTRY Alk Phos 85 unit/L 39 - 136 10/28 Normal [facility] CHEMISTRY Bili Direct 0.1 mg/dL 0.0 - 0.3 10/28 Normal [facility] HEMATOLOGY PTT 23.9 s 22.9 - 10/28 Normal 27Interpretiv [facility] 35.8 /2012 e Data: [facility] Therapeutic Range: 57 - 92 Seconds HEMATOLOGY PT 13.5 s 12.0 - 02 Normal [facility] 14.7 [facility] HEMATOLOGY INR 1.01 0.85 - 10/28 Normal 24Interpretive Data: RECOMMENDED RANGES FOR PROTIME INR: [facility] 1.17 2.0-3.0 for most medical and surgical thromboembolic states. Medical 2.5-3.5 for artificial heart valves and recurrent embolism. Center INR SHOULD BE USED ONLY FOR PATIENTS ON STABLE ANTICOAGULANT THERAPY. VIRAL - Influ B Negative 6 Negative 10/28 Normal 6Interpretive [facility] SEROLOGY Data: Due Medical (10/27/2012 18:02:02) to [...] - Influ A Negative Negative 10/28 Normal [facility] SEROLOGY /2012 Medical (10/27/2012 18:02:02) Center CHEMISTRY Vitamin D, 16 ng/mL 30 - 100 10/25 LOW 13Interpretive Data: Reference range is based on recommendations in the Endocrine [facility] 25-OH, /2012 Society Clinical Practice Guideline (J Clin Endocrinol Metab Medical 2011;96:8206-0884) Center CHEMISTRY Hgb A1C 8.4 % 10/25 [...] 87 mg/dL 0 - 129 10/25 Normal [facility] CHEMISTRY HDL 35 mg/dL >=35 10/25 Normal [facility] CHEMISTRY Trig 101 mg/dL 0 - 200 10/25 Normal [facility] CHEMISTRY Chol 142 mg/dL 120 - 200 10/25 Normal [facility] CHEMISTRY CHD Risk 4.06 3.90 - 10/25 Normal [facility] 5.80 [facility] CHEMISTRY Troponin-I 5.43 ng/mL 0.00 - 10/25 CRIT 18Result [facility] 0.40 Comment: Medical Critical Center Result(s) called to Jelani Rasmussen at 10/25/2012 00:47:48 TEXTILE SCREEN MAKER by ISAAC. Read back OK. CHEMISTRY Troponin-T 0.693 0.000 - 10/25 CRIT 15Result [facility] ng/mL 0.100 /2012 Comment: Medical Critical Center Result(s) called to daisy otoole at 10/25/2012 01:18:09 TEXTILE SCREEN MAKER by tac. Read back OK. HEMATOLOGY Basophils # 0.2 K/CMM 0.0 - 0.2 10/25 Normal [facility] HEMATOLOGY Plt Morph Normal 10/25 Normal Medical (10/25/2012 00:15:00) Center CHEMISTRY ALT 15 unit/L 0 - 65 10/24 Normal [facility] CHEMISTRY Albumin Lvl 2.7 g/dL 3.5 - 5.0 10/24 LOW [facility] CHEMISTRY Bili Total 0.5 mg/dL 0.2 - 1.3 10/24 Normal [facility] CHEMISTRY Alk Phos 83 unit/L 39 - 136 10/24 Normal [facility] CHEMISTRY Bili Direct 0.2 mg/dL 0.0 - 0.3 10/24 Normal [facility] CHEMISTRY Total Protein 5.8 g/dL 6.4 - 8.4 10/24 LOW [facility] CHEMISTRY AST 41 unit/L 0 - 37 10/24 HI [facility] CHEMISTRY Bili Indirect 0.3 mg/dL 0.0 - 1.0 10/24 Normal [facility] CHEMISTRY Globulin 3.1 g/dL 2.0 - 4.0 10/24 Normal [facility] CHEMISTRY A/G Ratio 0.9 0.7 - 1.6 10/24 Normal [facility] CHEMISTRY POC A Mode NC-3LPM 10/24 NA [facility] CHEMISTRY POC A HCO3 19 mMol/L 22 - 26 10/24 LOW [facility] CHEMISTRY POC A O2 Sat 98.0 % 95.0 - 10/24 Normal [facility] 100.0 [facility] CHEMISTRY POC A BE -6 mMol/L -2-2 - 2 10/24 LOW [facility] CHEMISTRY POC A PO2 103 mm[Hg] 80 - 100 10/24 HI [facility] CHEMISTRY POC A pH 7.35 7.35 - 10/24 LOW [facility] 7.45 [facility] CHEMISTRY POC A PCO2 34 mm[Hg] 35 - 45 10/24 LOW [facility] CHEMISTRY POC A Temp 37.0 Abby 10/24 NA [facility] CHEMISTRY POC A Source ART 10/24 NA [facility] CHEMISTRY Troponin-T 0.688 0.000 - 10/24 CRIT 16Result [facility] ng/mL 0.100 Comment: Medical Critical Center Result(s) called to Maribel Bustos at 10/24/2012 13:23:46 TEXTILE SCREEN MAKER by lwb . Read back OK. CHEMISTRY Troponin-I 7.61 ng/mL 0.00 - 10/24 CRIT 19Result [facility] 0.40 Comment: Medical Critical Center Result(s) called to mariana bustos at _ 10/24/2012 13:37:22 CSTby_lss. Read back OK. CHEMISTRY Total CK 150 unit/L 12 - 10/24 Normal [facility] CHEMISTRY Lactic Acid 0.7 mMol/L 0.5 - 2.2 10/24 Normal [facility] Lvl Medical Center CHEMISTRY CK MB Index 11.0 0.0 - 2.5 10/24 HI [facility] CHEMISTRY CK MB 16.5 ng/mL 0.5 - 3.6 10/24 [facility] CHEMISTRY Troponin-T 0.750 0.000 - 10/24 CRIT 17Result [facility] ng/mL 0.100 Comment: Medical Critical Center Result(s) called to Lyn King at 10/24/2012 09:52:38 TEXTILE SCREEN MAKER by lwb . Read back OK. CHEMISTRY Troponin-I 7.60 ng/mL 0.00 - 10/24 CRIT 20Result [facility] 0.40 Comment: Medical Critical Center Result(s) called to romero beltre at _10/24/2012 09:50:18 TEXTILE SCREEN MAKER by_lss. Read back OK. CHEMISTRY Total CK 170 unit/L - 10/24 Normal 14Result Comment: Medical Specimen Center Moderately Hemolyzed. CHEMISTRY CK MB Index 10.5 0.0 - 2.5 10/24 [facility] CHEMISTRY CK MB 17.8 ng/mL 0.5 - 3.6 10/24 [facility] CHEMISTRY Ketone 0.07 <=0.27 10/24 Normal [facility] [place] Quantitative mmol/L [facility] CHEMISTRY Ketone 2.61 <=0.27 10/24 HI [facility] Quantitative mmol/L Medical Center CHEMISTRY CK MB 30.9 ng/mL 0.5 - 3.6 10/24 HI [facility] CHEMISTRY CK MB Index 12.2 0.0 - 2.5 10/24 [facility] CHEMISTRY Total CK 254 unit/L 12 - 191 10/24 [facility] CHEMISTRY Lactic Acid 0.6 mMol/L 0.5 - 2.2 10/24 Normal [facility] CHEMISTRY POC V O2 Sat 56.0 % 40.0 - 10/24 Normal [place] 70.0 Medical Center CHEMISTRY POC V HCO3 22 mmol/L 22 - 26 10/24 Normal [facility] CHEMISTRY POC V PO2 32 mm[Hg] 20 - 49 10/24 Normal [facility] CHEMISTRY POC V BE -4 mmol/L -2-2 - 2 10/24 LOW [facility] CHEMISTRY POC V PCO2 41 mm[Hg] 38 - 52 10/24 Normal [facility] CHEMISTRY POC V pH 7.33 7.28 - 10/24 Normal [facility] 7.42 Medical Center CHEMISTRY POC V Temp 37.0 Abby 10/24 NA [facility] CHEMISTRY POC V Source MARK 10/24 NA Medical Center CHEMISTRY Ketone 0.93 <=0.27 10/24 HI [facility] Quantitative mmol/L [facility] Microbiolog Culture: 10/24 y Urine [facility] CHEMISTRY Lactic Acid 0.6 mMol/L 0.5 - 2.2 10/23 Normal [facility] Microbiolog Culture: 10/23 y Blood [facility] CHEMISTRY POC A Source ART 10/23 NA [facility] CHEMISTRY POC A PO2 144 mm[Hg] 80 - 100 10/23 [facility] CHEMISTRY POC A Temp 37.0 Abby 10/23 NA [facility] CHEMISTRY POC A pH 7.35 7.35 - 10/23 LOW [place] 7.45 [facility] Center CHEMISTRY POC A Glu 159 mg/dL 70 - 99 10/23 [facility] CHEMISTRY POC A BE -5 mMol/L -2-2 - 2 10/23 LOW [facility] CHEMISTRY POC A O2 Sat 99.0 % 95.0 - 10/23 [facility] 100.0 [facility] CHEMISTRY POC A Hct 35.0 % 36.0 - 10/23 LOW [facility] 48.0 [facility] CHEMISTRY POC A HCO3 20 mMol/L 22 - 26 10/23 LOW [facility] CHEMISTRY POC A PCO2 36 mm[Hg] 35 - 45 10/23 Normal [facility] CHEMISTRY POC A LA 0.6 mMol/L 0.5 - 2.2 10/23 Normal [facility] CHEMISTRY POC A Ca Ion 1.20 1.16 - 10/23 [facility] mMol/L 1.30 [facility] CHEMISTRY POC A Na 133 meq/L 135 - 145 10/23 LOW [facility] CHEMISTRY POC A K 3.8 meq/L 3.5 - 5.1 10/23 Normal [facility] CHEMISTRY A/G Ratio 0.8 0.7 - 1.6 10/23 Normal [facility] CHEMISTRY AST 90 unit/L 0 - 37 10/23 [place] [facility] CHEMISTRY Globulin 3.9 g/dL 2.0 - 4.0 10/23 Normal [facility] CHEMISTRY B/C Ratio 16 6 - 25 10/23 Normal [facility] CHEMISTRY Total Protein 7.2 g/dL 6.4 - 8.4 10/23 Normal [facility] CHEMISTRY Bili Total 0.5 mg/dL 0.2 - 1.3 10/23 Normal [facility] CHEMISTRY Albumin Lvl 3.3 g/dL 3.5 - 5.0 10/23 LOW [facility] CHEMISTRY Alk Phos 94 unit/L 39 - 136 10/23 Normal [facility] CHEMISTRY ALT 23 unit/L 0 - 65 10/23 Normal [facility] CHEMISTRY Osmolality 292 280 - 300 10/23 Normal [facility] mOsm/kg [facility] CHEMISTRY Myoglobin 128 ng/mL 25 - 72 10/23 [facility] Microbiolog Culture: 10/23 [facility] y [facility] Screen BACTERIAL - MRSA by PCR Positive 1, 2 10/23 ABN 2Interpretive Data: Interpretive Data: The [employer] Light[employer] MRSA assay is a qualitative test for the direct detection of nasal colonization with methicillin-resistant Staphylococcus aureus (MRSA) to aid [facility] in the prevention and control of MRSA infections in healthcare settings. A positive result does not indicate an infection or require treatment. A negative result does not exclude colonization or infection. Medical *[facility]* Center The polymerase chain reaction (PCR) assay detects a proprietary sequence indicative of the integration of the SCCmec cassette into the Staphylococcus aureus chromosome, indicating the presence of MRSA D (10/23/2012 11:37:00) NA. The assay utilizes FDA cleared IVD reagents. Performance characteristics have been verified by the [facility] within the [facility]. The Molecular [facility] Labor atory is authorized under the Clinical Laboratory Improvement Amendment of 1988 (CLIA-88) to perform high complexity testing. CHEMISTRY Osmolality 309 280 - 300 10/23 [facility] mOsm/kg [facility] CHEMISTRY POC A Hct 37.0 % 36.0 - 10/23 Normal [facility] 48.0 [facility] CHEMISTRY POC A Na 129 meq/L 135 - 145 10/23 LOW [facility] CHEMISTRY POC A LA 1.0 mMol/L 0.5 - 2.2 10/23 Normal [facility] CHEMISTRY POC A K 4.5 meq/L 3.5 - 5.1 10/23 Normal [facility] CHEMISTRY POC A Glu null 70 - 99 10/23 [facility] CHEMISTRY POC A Ca Ion 1.18 1.16 - 10/23 [facility] mMol/L 1.30 [facility] CHEMISTRY POC A PCO2 30 mm[Hg] 35 - 45 10/23 CRIT [facility] CHEMISTRY POC A PO2 123 mm[Hg] 80 - 100 10/23 [facility] CHEMISTRY POC A Temp 37.0 Abby 10/23 NA [facility] CHEMISTRY POC A HCO3 14 mMol/L 22 - 26 10/23 [facility] CHEMISTRY POC A Source ART 10/23 NA [facility] CHEMISTRY POC A pH 7.27 7.35 - 10/23 [facility] 7.45 [facility] CHEMISTRY POC A BE -12 mMol/L -2-2 - 2 10/23 [facility] CHEMISTRY POC A O2 Sat 98.0 % 95.0 - 10/23 Normal [facility] 100.0 [facility] CHEMISTRY Bili Direct 0.4 mg/dL 0.0 - 0.3 10/23 HI [facility] CHEMISTRY Lipase Lvl 54 unit/L 73 - 393 10/23 LOW [facility] CHEMISTRY Amylase Lvl 28 unit/L 25 - 115 10/23 Normal [facility] CHEMISTRY B/C Ratio 10 6 - 25 10/23 Normal [facility] BLOOD BANK Antibody Scrn Negative 10/23 Normal [facility] Medical (10/23/2012 01:00:00) Center BLOOD BANK ABO/Rh A POS 10/23 Unknown [facility] URINALYSIS UA <=1.0 0.1 - 1.0 10/23 NA [facility] Urobilinogen mg/dL Medical
*NA*< Center br/>(10/23 00:01:00) <sup> </sup> URINALYSIS UA Sq Epi Moderate /LPF Few 10/23 ABN Medical *ABN* Center (10/23/2012 00:01:00) URINALYSIS UA Leuk Est Negative Negative 10/23 Normal [facility] (10/23/2012 00:01:00) Center URINALYSIS UA Nitrite Negative Negative 10/23 Normal [facility] (10/23/2012 00:01:00) Center URINALYSIS UA Blood Negative Negative 10/23 Normal [facility] (10/23/2012 00:01:00) Center URINALYSIS UA Glucose >=1000 mg/dL Negative 10/23 ABN Medical *ABN* Center (10/23/2012 00:01:00) URINALYSIS UA Protein 10 mg/dL Negative 10/23 ABN Medical *ABN* Center (10/23/2012 00:01:00) URINALYSIS UA pH 5.0 5.0 - 8.0 10/23 Normal [facility] URINALYSIS UA WBC 1 /HPF 0 - 5 10/23 Normal [facility] URINALYSIS UA Bili Negative Negative 10/23 NA Medical *NA* Center (10/23/2012 00:01:00) URINALYSIS UA Ketones >=150 mg/dL Negative 10/23 ABN Medical *ABN* Center (10/23/2012 00:01:00) URINALYSIS UA Spec Grav 1.015 <=1.030 10/23 Normal [facility] URINALYSIS UA Turbidity Clear Clear 10/23 Normal [facility] (10/23/2012 00:01:00) Center URINALYSIS UA Color Light Yellow Yellow 10/23 NA Medical *NA* Center (10/23/2012 00:01:00) BEDSIDE Gluc POC 265 mg/dL 70 - 99 10/08 [place] 1Interpretive [facility] GLUCOSE [place] Data: Medical TESTING Center Upper Reportable Limit: 200 mg/dL. BEDSIDE Comment1 Notify 10/08 [facility] GLUCOSE RN/MD [facility] TESTING Center BEDSIDE Comment1 Notify 10/08 [facility] GLUCOSE RN/MD [facility] TESTING Center BEDSIDE Gluc POC 204 mg/dL 70 - 99 10/08 [place] 2Interpretive [facility] GLUCOSE [place] Data: Medical TESTING Center Upper Reportable Limit: 200 mg/dL. CHEMISTRY Phosphorus 2.7 mg/dL 2.5 - 4.5 10/08 Normal [facility] CHEMISTRY Magnesium Lvl 1.6 mg/dL 1.8 - 2.4 10/08 LOW [facility] CHEMISTRY Ca Ion 1.17 1.16 - 02 Normal [facility] mMol/L 1. [facility] CHEMISTRY Ca Norm 1.18 1.16 - 10/08 Normal [facility] mMol/L 1. [facility] CHEMISTRY Ca Ion mgdL 4.68 mg/dL 4.65 - 02 Normal [facility] 5.20 [facility] CHEMISTRY Ca Norm mgdL 4.72 mg/dL 4.65 - 02 Normal [facility] 5.20 [facility] CHEMISTRY AGAP 17.6 meq/L 10.0 - 10/08 Normal [facility] 20.0 [facility] CHEMISTRY eGFR 109 10/08 NA 4Result Comment: The eGFR is calculated using the CKD-EPI formula. In most young, healthy individuals the eGFR will be > 90 mL/min/1.73m2. The eGFR declines with age. An eGFR of 60-89 may be normal in [facility] mL/min/1.7 some populations, particularly the elderly, for whom the CKD-EPI formula has not been extensively validated. Use of the eGFR is not recommended in the following populations: [place] [address] Center Individuals with unstable creatinine concentrations, including [...] 24 meq/L 24 - 32 10/08 Normal [facility]2012 [facility] CHEMISTRY Calcium Lvl 8.5 mg/dL 8.5 - 10.5 10/08 Normal [facility] CHEMISTRY Potassium Lvl 3.6 meq/L 3.5 - 5.1 10/08 Normal [facility] CHEMISTRY Chloride Lvl 96 meq/L 95 - 109 10/[address] CHEMISTRY Creatinine 0.6 mg/dL 0.5 - 1.4 10/08 Normal [facility] /2012 [facility] CHEMISTRY Sodium Lvl 134 meq/L 135 - 145 10/[address] CHEMISTRY Glucose Lvl 129 mg/dL 70 - 99 10/08 [place] 7Interpretive Data: Adult reference range values reflect the clinical guidelines of the [place] [employer]. [facility] CHEMISTRY BUN 4 mg/dL 7 - 22 10/[address] HEMATOLOGY Monocytes # 1.1 K/CMM 0.0 - 0.8 10/[address] HEMATOLOGY Eosinophils # 0.3 K/CMM 0.0 - 0.5 10/[address] HEMATOLOGY Basophils # 0.1 K/CMM 0.0 - 0.2 10/[address] HEMATOLOGY Microcyte 1+ None Seen 10/08 ABN [facility] *ABN* Center (10/08/2012 03:57:00) HEMATOLOGY Segs 55.7 % 45.0 - 02 Normal [facility] 75.0 [facility] HEMATOLOGY Lymphocytes 31.3 % 20.0 - 02/ Normal [facility] 40.0 [facility] HEMATOLOGY Monocytes 10.0 % 2.0 - 12.0 10/08 Normal [facility] HEMATOLOGY Eosinophils 2.5 % 0.0 - 4.0 02/ Normal [facility] HEMATOLOGY Segs-Bands # 6.1 K/CMM 1.5 - 8.1 10/08 Normal [facility] HEMATOLOGY Basophils 0.5 % 0.0 - 1.0 / Normal [facility] HEMATOLOGY Lymphocytes # 3.4 K/CMM 1.0 - 5.5 10/08 Normal [facility] HEMATOLOGY RDW 16.9 % 11.5 - 02 HI [facility] 14.5 /2012 [facility] HEMATOLOGY Platelet 218 K/CMM 133 - 450 02 Normal [facility] HEMATOLOGY WBC 10.9 K/CMM 3.7 - 10.4 10/08 HI [facility] HEMATOLOGY RBC 4.35 M/CMM 4.20 - 10/08 [facility] 5.40 /2012 [facility] HEMATOLOGY MPV 9.7 fL 7.4 - 10.4 10/08 Normal [facility] HEMATOLOGY Hgb 10.4 g/dL 12.0 - 10/08 LOW [facility] 16.0 /2012 [facility] HEMATOLOGY Hct 32.7 % 36.0 - 02 [facility] 48.0 /2012 [facility] HEMATOLOGY MCHC 31.8 g/dL 32.0 - 02 [facility] 36.0 /2012 [facility] HEMATOLOGY MCV 75.2 fL 81.0 - 10/08 [facility] 99.0 /2012 [facility] HEMATOLOGY MCH 23.9 pg 27.0 - 10/08 [facility] 31.0 [facility] BEDSIDE Comment1 Notify 10/08 NA [facility] GLUCOSE RN/MD /2012 Medical TESTING Center BEDSIDE Gluc POC 247 mg/dL 70 - 99 10/08 [place] 3Interpretive [facility] GLUCOSE [place] Data: Medical TESTING Center Upper Reportable Limit: 200 mg/dL. CHEMISTRY Magnesium Lvl 2.1 mg/dL 1.8 - 2.4 10/07 Normal [facility] CHEMISTRY Ca Norm 1.16 1.16 - 02 [facility] mMol/L 1.30 [facility] CHEMISTRY Ca Ion mgdL 4.72 mg/dL 4.65 - 10/07 [facility] 5. [facility] CHEMISTRY Ca Norm mgdL 4.64 mg/dL 4.65 - 10/07 LOW [facility] 5.20 [facility] CHEMISTRY Ca Ion 1.18 1.16 - 10/07 Normal [facility] mMol/L 1.30 [facility] CHEMISTRY Phosphorus 2.6 mg/dL 2.5 - 4.5 10/07 Normal [facility] CHEMISTRY Calcium Lvl 8.1 mg/dL 8.5 - 10.5 10/07 LOW [facility] CHEMISTRY AGAP 19.4 meq/L 10.0 - 10/07 Normal [facility] 20.0 [facility] CHEMISTRY eGFR 116 10/07 NA 5Result Comment: The eGFR is calculated using the CKD-EPI formula. In most young, healthy individuals the eGFR will be > 90 mL/min/1.73m2. The eGFR declines with age. An eGFR of 60-89 may be normal in [facility] mL/min/1.7 some populations, particularly the elderly, for whom the CKD-EPI formula has not been extensively validated. Use of the eGFR is not recommended in the following populations: [place] [id number] Center Individuals with unstable creatinine concentrations, including [...] 6 mg/dL 7 - 22 10/07 LOW [facility] CHEMISTRY Glucose Lvl 99 mg/dL 70 - 99 10/07 Normal 8Interpretive Data: Adult reference range values reflect the clinical guidelines of the [place] [employer]. [facility] CHEMISTRY Creatinine 0.5 mg/dL 0.5 - 1.4 10/07 Normal [facility] Lvl [facility] CHEMISTRY Potassium Lvl 3.4 meq/L 3.5 - 5.1 10/07 LOW [facility] CHEMISTRY Sodium Lvl 135 meq/L 135 - 145 10/07 Normal [facility] CHEMISTRY CO2 24 meq/L 24 - 32 10/07 Normal [facility] CHEMISTRY Chloride Lvl 95 meq/L 95 - 109 10/07 Normal [facility] HEMATOLOGY MCHC 31.8 g/dL 32.0 - 10/07 LOW [facility] 36.0 [facility] HEMATOLOGY MCH 24.1 pg 27.0 - 02 [facility] 31.0 /2012 [facility] HEMATOLOGY MCV 75.7 fL 81.0 - 02 [facility] 99.0 /2012 [facility] HEMATOLOGY Hct 31.0 % 36.0 - 02 [facility] 48.0 /2012 [facility] HEMATOLOGY Hgb 9.9 g/dL 12.0 - 02/ [facility] 16.0 /2012 [facility] HEMATOLOGY MPV 9.1 fL 7.4 - 10.4 02 Normal [facility] HEMATOLOGY Platelet 222 K/CMM 133 - 450 02 Normal [facility] HEMATOLOGY RDW 16.8 % 11.5 - 02 [facility] 14.5 /2012 [facility] HEMATOLOGY RBC 4.10 M/CMM 4.20 - 02 [facility] 5.40 /2012 [facility] HEMATOLOGY WBC 13.8 K/CMM 3.7 - 10.4 02 [facility] HEMATOLOGY Segs-Bands # 9.6 K/CMM 1.5 - 8.1 10/07 [facility] HEMATOLOGY Basophils 0.3 % 0.0 - 1.0 02 Normal [facility] HEMATOLOGY Eosinophils 1.0 % 0.0 - 4.0 10/07 [facility] HEMATOLOGY Microcyte 1+ None Seen 10/07 [facility] *ABN* Center (10/07/2012 03:25:00) HEMATOLOGY Lymphocytes # 2.9 K/CMM 1.0 - 5.[address] [facility] HEMATOLOGY Eosinophils # 0.1 K/CMM 0.0 - 0.[address] [facility] HEMATOLOGY Monocytes # 1.2 K/CMM 0.0 - 0.8 02 [facility] HEMATOLOGY Monocytes 8.8 % 2.0 - 12.0 10/07 [facility] HEMATOLOGY Lymphocytes 20.8 % 20.0 - 02 [facility] 40.0 [facility] HEMATOLOGY Segs 69.1 % 45.0 - 02/ Normal [facility] 75.0 [facility] URINALYSIS UA Glucose 500mg/dL 10/06 NA [facility] URINALYSIS UA <=1.0 0.1 - 1.0 10/06 NA [facility] Urobilinogen mg/dL /2012 Medical
*NA*< Center br/>(10/06 11:42:00) <sup> </sup> URINALYSIS Micro? Performed 10/06 NA [facility] *NA* Center (10/06/2012 11:42:00) URINALYSIS UA [place] Yeast Moderate /HPF None Seen 10/06 [facility] *ABN* Center (10/06/2012 11:42:00) URINALYSIS UA RBC 3 /HPF 0 - 2 10/06 HI [facility] URINALYSIS UA Bacteria Many /HPF None Seen 10/06 [facility] *ABN* [place] (10/06/2012 11:42:00) URINALYSIS UA WBC 3 /HPF 0 - 5 10/06 Normal [facility] URINALYSIS UA Leuk Est Negative Negative 10/06 Normal 2012 [facility] (10/06/2012 11:42:00) Center URINALYSIS UA Nitrite Negative Negative 10/06 Normal [facility] (10/06/2012 11:42:00) Center URINALYSIS UA Sq Epi Many /LPF Few 10/06 [facility] *ABN* [place] (10/06/2012 11:42:00) URINALYSIS UA Bili Negative Negative 10/06 [facility] *NA* Center (10/06/2012 11:42:00) URINALYSIS UA Blood Negative Negative 10/06 Normal [facility] (10/06/2012 11:42:00) Center URINALYSIS UA pH 5.5 5.0 - 8.0 10/06 Normal [facility] URINALYSIS UA Protein 20 mg/dL Negative 10/06 [facility] *ABN* Center (10/06/2012 11:42:00) URINALYSIS UA Ketones >=150 mg/dL Negative 10/06 [facility] *ABN* Center (10/06/2012 11:42:00) URINALYSIS UA Color Yellow Yellow 10/06 NA Medical *NA* Center (10/06/2012 11:42:00) URINALYSIS UA Turbidity Slight Clear 10/06 ABN Medical *ABN* Center (10/06/2012 11:42:00) URINALYSIS UA Spec Grav 1.011 <=1.030 10/06 Normal [facility] URINALYSIS UA Mucus Few /LPF None [facility] 10/06 [facility] [place] (10/06/2012 11:42:00) Microbiolog Culture: 10/06 [facility] y [facility] CHEMISTRY Phosphorus 2.5 mg/dL 2.5 - 4.5 10/06 Normal [facility] CHEMISTRY Magnesium Lvl 1.5 mg/dL 1.8 - 2.4 10/06 LOW [facility] CHEMISTRY eGFR 76 10/06 NA 6Result Comment: The eGFR is calculated using the CKD-EPI formula. In most young, healthy individuals the eGFR will be > 90 mL/min/1.73m2. The eGFR declines with age. An eGFR of 60-89 may be normal in [facility] mL/min/1. some populations, particularly the elderly, for whom the CKD-EPI formula has not been extensively validated. Use of the eGFR is not recommended in the following populations: [address] Individuals with unstable creatinine concentrations, including [...] 3.9 meq/L 3.5 - 5.1 10/06 Normal [facility] CHEMISTRY Chloride Lvl 97 meq/L 95 - 109 10/06 Normal [facility] CHEMISTRY Calcium Lvl 8.3 mg/dL 8.5 - 10.5 10/06 LOW [facility] CHEMISTRY CO2 22 meq/L 24 - 32 10/06 LOW [facility] CHEMISTRY Glucose Lvl 234 mg/dL 70 - 99 10/06 [place] 9Interpretive Data: Adult reference range values reflect the clinical guidelines of the [place] [employer]. [facility] CHEMISTRY Creatinine 0.9 mg/dL 0.5 - 1.4 10/06 Normal [facility] CHEMISTRY BUN 9 mg/dL 7 - 22 10/06 Normal [facility] CHEMISTRY Sodium Lvl 134 meq/L 135 - 145 10/06 LOW [facility] CHEMISTRY AGAP 18.9 meq/L 10.0 - 10/06 Normal [place] 20.0 [facility] HEMATOLOGY Segs-Bands # 13.3 K/CMM 1.5 - 8.1 10/06 [facility] HEMATOLOGY Basophils 0.2 % 0.0 - 1.0 10/06 Normal [facility] HEMATOLOGY Eosinophils 0.1 % 0.0 - 4.0 10/06 Normal [facility] HEMATOLOGY Monocytes 6.7 % 2.0 - 12.0 10/06 Normal [facility] HEMATOLOGY Segs 81.7 % 45.0 - 10/06 [facility] [place] 75.0 /2012 [facility] HEMATOLOGY Lymphocytes 11.3 % 20.0 - 10/06 [facility] [place] 40.0 /2012 [facility] HEMATOLOGY Microcyte 1+ None Seen 10/06 [facility] Medical *ABN* Center (10/06/2012 04:25:00) HEMATOLOGY Monocytes # 1.1 K/CMM 0.0 - 0.8 10/06 [facility] HEMATOLOGY Lymphocytes # 1.8 K/CMM 1.0 - 5.5 10/06 Normal [facility] HEMATOLOGY RBC 4.28 M/CMM 4.20 - 10/06 [facility] [place] 5.40 /2012 [facility] HEMATOLOGY WBC 16.3 K/CMM 3.7 - 10.4 10/06 [facility] HEMATOLOGY Hgb 10.3 g/dL 12.0 - 10/06 [facility] [place] 16.0 [facility] HEMATOLOGY Hct 32.6 % 36.0 - 10/06 [facility] [place] 48.0 /2012 [facility] HEMATOLOGY MCH 24.0 pg 27.0 - 10/06 LOW [place] 31.0 [facility] HEMATOLOGY MCV 76.1 fL 81.0 - 10/06 [facility] [place] 99.0 /2012 [facility] HEMATOLOGY MCHC 31.5 g/dL 32.0 - 10/06 [facility] [place] 36.0 [facility] HEMATOLOGY RDW 17.2 % 11.5 - 10/06 [facility] [place] 14.5 [facility] HEMATOLOGY Platelet 248 K/CMM 133 - 450 10/06 Normal [facility] HEMATOLOGY MPV 9.5 fL 7.4 - 10.4 10/06 Normal [facility] CHEMISTRY Ca Norm 1.07 1.16 - 10/05 LOW [facility] mMol/L 1. [facility] CHEMISTRY Ca Ion mgdL 4.36 mg/dL 4.65 - 10/05 LOW [facility] 5. [facility] CHEMISTRY Ca Norm mgdL 4.28 mg/dL 4.65 - 10/05 LOW [facility] 5. [facility] CHEMISTRY Ca Ion 1.09 1.16 - 10/05 LOW [facility] mMol/L 1. [facility] HEMATOLOGY Basophils # 0.1 K/CMM 0.0 - 0.2 10/05 Normal [facility] HEMATOLOGY Eosinophils # 0.1 K/CMM 0.0 - 0.5 10/05 Normal [facility] CHEMISTRY U Preg Negative Negative 10/03 Normal [facility] (10/03/2012 06:31:00) [place] BLOOD BANK ABO/Rh A POS 10/03 Unknown [facility] BLOOD BANK Antibody Scrn Negative 10/03 Normal [facility] Medical (10/03/2012 06:00:00) Center CHEMISTRY Total Protein 7.8 g/dL 6.4 - 8.4 09/23 Normal [facility] CHEMISTRY AST 31 unit/L 0 - 37 09/23 Normal [facility] CHEMISTRY Bili Total 0.3 mg/dL 0.2 - 1.3 09/23 Normal [facility] CHEMISTRY ALT 50 unit/L 0 - 65 09/23 Normal [facility] CHEMISTRY Albumin Lvl 3.6 g/dL 3.5 - 5.0 09/23 Normal [facility] CHEMISTRY Alk Phos 150 unit/L 39 - 136 09/23 [facility] CHEMISTRY B/C Ratio 21 6 - 25 09/23 Normal [facility] CHEMISTRY Globulin 4.2 g/dL 2.0 - 4.0 09/23 [facility] CHEMISTRY A/G Ratio 0.9 0.7 - 1.6 09/23 Normal [facility] HEMATOLOGY Hypochrom Slight None Seen 09/23 Normal Medical (09/23/2012 12:35:00) Center HEMATOLOGY Elliptocyte Slight None Seen 09/23 ABN Medical *ABN* Center (09/23/2012 12:35:00) HEMATOLOGY Basophils # 0.1 K/CMM 0.0 - 0.2 09/23 Normal [facility] HEMATOLOGY Plt Morph Normal 09/23 Normal [facility] (09/23/2012 12:35:00) Center URINALYSIS UA <=1.0 0.1 - 1.0 09/23 NA [facility] Urobilinogen mg/dL Medical
*NA*< Center br/>(09/23 12:35:00) <sup> </sup> URINALYSIS UA Nitrite Negative Negative 09/23 Normal [facility] (09/23/2012 12:35:00) [place] URINALYSIS UA Blood Negative Negative 09/23 Normal [facility] (09/23/2012 12:35:00) Center URINALYSIS UA Leuk Est Negative Negative 09/23 Normal [facility] (09/23/2012 12:35:00) Center URINALYSIS Micro? Not Indicated 09/23 [facility] *NA* [place] (09/23/2012 12:35:00) URINALYSIS UA Ketones Negative mg/dL Negative 09/23 [facility] *NA* [place] (09/23/2012 12:35:00) URINALYSIS UA Bili Negative Negative 09/23 [facility] *NA* [place] (09/23/2012 12:35:00) URINALYSIS UA Protein Negative mg/dL Negative 09/23 Normal [facility] (09/23/2012 12:35:00) Center URINALYSIS UA pH 5.0 5.0 - 8.0 09/23 Normal [facility] Center URINALYSIS UA Glucose Negative mg/dL Negative 09/23 [facility] *NA* [place] (09/23/2012 12:35:00) URINALYSIS UA Color Light Yellow Yellow 09/23 NA Medical *NA* [place] (09/23/2012 12:35:00) URINALYSIS UA Spec Grav 1.004 <=1.030 09/23 Normal [facility] URINALYSIS UA Turbidity Clear Clear 01/18 Normal Medical (09/23/2012 12:35:00) Center BEDSIDE Gluc POC 153 mg/dL 70 - 99 06/28 [place] 1Interpretive [facility] GLUCOSE Lifsc Data: Medical TESTING Center Upper Reportable Limit: 200 mg/dL. CHEMISTRY U Preg Negative Negative 06/28 Normal Medical (06/28/2012 07:27:00) Center Vital Signs Vital Sign Value Date Comments Source Systolic (mm Hg) 124 08/13/2013 [facility] Respitory Rate 18 08/13/2013 [facility] Temperature Oral (F) 98.8 F 08/13/2013 [facility] Heart Rate 102 08/13/2013 [facility] Diastolic (mm Hg) 46 08/13/2013 [facility] Systolic (mm Hg) 107 08/13/2013 [facility] Respitory Rate 18 08/13/2013 [facility] Diastolic (mm Hg) 63 08/13/2013 [facility] Heart Rate 103 08/13/2013 [facility] Heart Rate 105 08/13/2013 [facility] Respitory Rate 18 08/13/2013 [facility] Systolic (mm Hg) 117 08/13/2013 [facility] Diastolic (mm Hg) 70 08/13/2013 [facility] Weight 81.818 08/13/2013 [facility] Height 162.56 cm 08/13/2013 [facility] Temperature Oral (F) 98.4 F 08/13/2013 [facility] Diastolic (mm Hg) 61 07/15/2013 [facility] Temperature Oral (F) 97.7 F 07/15/2013 [facility] Systolic (mm Hg) 117 07/15/2013 [facility] Respitory Rate 18 07/15/2013 [facility] Heart Rate 90 07/15/2013 [facility] Respitory Rate 18 07/14/2013 [facility] Heart Rate 104 07/14/2013 [facility] Diastolic (mm Hg) 46 07/14/2013 [facility] Systolic (mm Hg) 91 07/14/2013 [facility] Diastolic (mm Hg) 61 07/14/2013 [facility] Systolic (mm Hg) 95 07/14/2013 [facility] Respitory Rate 18 07/14/2013 [facility] Heart Rate 120 07/14/2013 [facility] Temperature Oral (F) 97.5 F 07/14/2013 [facility] Temperature Oral (F) 97.6 F 07/14/2013 [facility] Height 162.56 cm 07/12/2013 [facility] Weight 86.364 07/12/2013 [facility] Temperature Oral (F) 97.1 F 04/03/2013 [facility] Respitory Rate 18 04/03/2013 [facility] Heart Rate 79 04/03/2013 [facility] Center Diastolic (mm Hg) 66 04/03/2013 [facility] Systolic (mm Hg) 94 04/03/2013 [facility] Diastolic (mm Hg) 28 04/03/2013 [facility] Systolic (mm Hg) 116 04/03/2013 [facility] Respitory Rate 20 04/03/2013 [facility] Heart Rate 100 04/03/2013 [facility] Temperature Oral (F) 97.0 F 04/03/2013 [facility] Height 162.56 cm 04/03/2013 [facility] Weight 90 04/03/2013 [facility] Height 162.56 cm 04/02/2013 [facility] Weight 90 04/02/2013 [facility] Systolic (mm Hg) 132 03/09/2013 [facility] Center Diastolic (mm Hg) 72 03/09/2013 [facility] Heart Rate 114 03/09/2013 [facility] Temperature Oral (F) 97.7 F 03/09/2013 [facility] Respitory Rate 20 03/09/2013 [facility] Temperature Oral (F) 97.7 F 03/09/2013 [facility] Heart Rate 108 03/09/2013 [facility] Center Systolic (mm Hg) 143 03/09/2013 [facility] Respitory Rate 18 03/09/2013 [facility] Diastolic (mm Hg) 81 03/09/2013 [facility] Heart Rate 115 03/09/2013 [facility] Center Diastolic (mm Hg) 70 03/09/2013 [facility] Center Systolic (mm Hg) 153 03/09/2013 [facility] Center Respitory Rate 18 03/09/2013 [facility] Temperature Oral (F) 97.5 F 03/09/2013 [facility] Weight 90 03/07/2013 [facility] Height 162.56 cm 03/07/2013 [facility] Height 162.56 cm 03/06/2013 [facility] Weight 90 03/06/2013 [facility] Center Systolic (mm Hg) 127 12/07/2012 [facility] Center Diastolic (mm Hg) 49 12/07/2012 [facility] Heart Rate 90 12/07/2012 [facility] Temperature Oral (F) 98.3 F 12/07/2012 [facility] Center Respitory Rate 18 12/07/2012 [facility] Center Systolic (mm Hg) 104 12/07/2012 [facility] Temperature Oral (F) 98.6 F 12/07/2012 [facility] Respitory Rate 18 12/07/2012 [facility] Heart Rate 78 12/07/2012 [facility] Center Diastolic (mm Hg) 57 12/07/2012 [facility] Heart Rate 89 12/07/2012 [facility] Temperature Oral (F) 97.6 F 12/07/2012 [facility] Respitory Rate 18 12/07/2012 [facility] Center Systolic (mm Hg) 105 12/07/2012 [facility] Center Diastolic (mm Hg) 51 12/07/2012 [facility] Weight 100 11/29/2012 [facility] Center Height 162.56 cm 11/29/2012 [facility] Weight 100.568 11/29/2012 [facility] Center Height 162.56 cm 11/29/2012 [facility] Weight 101.364 11/28/2012 [facility] Height 162.56 cm 11/28/2012 [facility] Diastolic (mm Hg) 55 11/17/2012 [facility] Center Systolic (mm Hg) 117 11/17/2012 [facility] Center Diastolic (mm Hg) 70 11/17/2012 [facility] Systolic (mm Hg) 118 11/17/2012 [facility] Diastolic (mm Hg) 61 11/17/2012 [facility] Systolic (mm Hg) 154 11/17/2012 [facility] Temperature Oral (F) 97.8 F 11/17/2012 [facility] Temperature Oral (F) 97.9 F 11/17/2012 [facility] Temperature Oral (F) 98.6 F 11/17/2012 [facility] Height 162.56 cm 11/17/2012 [facility] Weight 103.21 11/17/2012 [facility] Respitory Rate 18 11/17/2012 [facility] Height 162.56 cm 11/16/2012 [facility] Weight 100 11/16/2012 [facility] Diastolic (mm Hg) 58 11/14/2012 [facility] Systolic (mm Hg) 121 11/14/2012 [facility] Respitory Rate 20 11/14/2012 [facility] Heart Rate 84 11/14/2012 [facility] Temperature Oral (F) 98.0 F 11/14/2012 [facility] Respitory Rate 20 11/14/2012 [facility] Systolic (mm Hg) 103 11/14/2012 [facility] Diastolic (mm Hg) 54 11/14/2012 [facility] Temperature Oral (F) 98.0 F 11/14/2012 [facility] Heart Rate 83 11/14/2012 [facility] Diastolic (mm Hg) 68 11/14/2012 [facility] Respitory Rate 20 11/14/2012 [facility] Heart Rate 79 11/14/2012 [facility] Systolic (mm Hg) 136 11/14/2012 [facility] Temperature Oral (F) 98.4 F 11/14/2012 [facility] Height 162.56 cm 11/06/2012 [facility] Weight 100 11/06/2012 [facility] Height 162.56 cm 11/06/2012 [facility] Weight 100 11/06/2012 [facility] Height 162.56 cm 11/06/2012 [facility] Weight 104.545 11/06/2012 [facility] Systolic (mm Hg) 131 11/01/2012 [facility] Diastolic (mm Hg) 62 11/01/2012 [facility] Systolic (mm Hg) 125 11/01/2012 [facility] Diastolic (mm Hg) 62 11/01/2012 [facility] Systolic (mm Hg) 155 10/31/2012 [facility] Diastolic (mm Hg) 54 10/31/2012 [facility] Temperature Oral (F) 99.7 F 10/31/2012 [facility] Temperature Oral (F) 96.7 F 10/31/2012 [facility] Temperature Oral (F) 98.1 F 10/31/2012 [facility] Respitory Rate 19 10/31/2012 [facility] Respitory Rate 19 10/31/2012 [facility] Respitory Rate 19 10/31/2012 [facility] Weight 78.2 10/24/2012 [facility] Heart Rate 126 10/23/2012 [facility] Heart Rate 130 10/23/2012 [facility] Weight 113.636 10/23/2012 [facility] Height 162.56 cm 10/23/2012 [facility] Heart Rate 119 10/23/2012 [facility] Height 162.56 cm 10/23/2012 [facility] Systolic (mm Hg) 123 10/08/2012 [facility] Respitory Rate 19 10/08/2012 [facility] Diastolic (mm Hg) 51 10/08/2012 [facility] Heart Rate 81 10/08/2012 [facility] Temperature Oral (F) 98.8 F 10/08/2012 [facility] Diastolic (mm Hg) 55 10/08/2012 [facility] Respitory Rate 20 10/08/2012 [facility] Systolic (mm Hg) 136 10/08/2012 [facility] Heart Rate 82 10/08/2012 [facility] Temperature Oral (F) 98.9 F 10/08/2012 [facility] Diastolic (mm Hg) 47 10/08/2012 [facility] Systolic (mm Hg) 107 10/08/2012 [facility] Temperature Oral (F) 98.1 F 10/08/2012 [facility] Respitory Rate 18 10/08/2012 [facility] Heart Rate 75 10/08/2012 [facility] Weight 118.200 10/03/2012 [facility] Height 162.56 cm 10/03/2012 [facility] Weight 118.182 09/23/2012 [facility] Height 162.56 cm 09/23/2012 [facility] Diastolic (mm Hg) 57 06/28/2012 [facility] Heart Rate 104 06/28/2012 [facility] Respitory Rate 18 06/28/2012 [facility] Systolic (mm Hg) 147 06/28/2012 [facility] Systolic (mm Hg) 153 06/28/2012 [facility] Diastolic (mm Hg) 61 06/28/2012 [facility] Respitory Rate 16 06/28/2012 [facility] Systolic (mm Hg) 136 06/28/2012 [facility] Diastolic (mm Hg) 52 06/28/2012 [facility] Respitory Rate 18 06/28/2012 [facility] Temperature Oral (F) 98.5 F 06/28/2012 [facility] Heart Rate 104 06/28/2012 [facility] Weight 118.182 06/14/2012 [facility] Height 162.56 cm 06/14/2012 [facility] Encounters Location Location Encounter Encounter Reason Attending ADM DC Status Source Details Type Number For Visit Provider Date Date [facility] DS [id number] DSU/ WOLFGANG 06/28 Active [facility] Medical REFLUX SUSHILA /2011 [facility] Inpatient [id number] WOLFGANG 10/03 10/08 Active [facility] SUSHILA /2012 [facility] Inpatient [id number] N/V DARELL 10/23 11/01 Active [facility] DEHYDRATI SDRINGOLA- /2012 [facility] Inpatient [id number] LAVONE 11/05 11/14 Active [facility] ROSE /2012 [facility] OU [id number] CHIP 11/16 11/17 Active [facility] MARKUS /2012 [facility] Inpatient [id number] JUAN J 11/29 12/07 Active [facility] BRANDO /2012 [facility] OU [id number] SANJUANA 03/07 03/09 Active [facility] OSUAGWU /2012 [facility] OU [id number] JEANNIE 04/02 04/03 Active [facility] ADOLFO /2012 [facility] OU [id number] GASTROPAR JEANNIE 07/12 07/14 Active [facility] Medical ESIS ADOLFO /2012 [facility] JACKIE [id number] WOLFGANG 07/26 07/27 Active [facility] Medical SUSHILA /2012 [facility] Emergency [id number] KATELYN 08/13 08/13 Active [facility] BUBLEWICZ /2012 [facility] Outpatient [id number] SERGO WHITFIELD Cancel [facility] Procedures Procedure Code Date Perfomer Comments Source section [id number] [facility] Cholecystectomy [id number] [facility] <sup>1</sup> [facility] Hand repair [id number], x'2 [facility] <sup>2</sup> [facility] Tonsillectomy [id number] [facility] <sup>3</sup> [facility] Bypass of stomach [id number] [facility] Rotator cuff repair [id number] [facility] Heart procedure [id number] 1cardiac [facility] <sup>1</sup> stent for [facility]
--- OUTSIDE RECORDS SUMMARY | 2018-06-07 11:50 | XMS REPORT | CCD ---
:1965 Author Organization [facility] Care Team Providers Name Role Phone [...]
--- OUTSIDE RECORDS SUMMARY | 2018-06-07 11:51 | XMS REPORT | CCD ---
:1965 Author Organization [facility] Care Team Providers Name Role Phone Sukhwinder Renteria Referring Provider Allergies, Adverse Reactions, Alerts Substance Reaction Status NKDA Active Problem List Condition Effective Dates Status Acid reflux Resolved Anemia Resolved Anxiety Resolved Arthritis Resolved Depression Resolved Diabetes mellitus type 1 Resolved Edema of lower extremity Resolved Fibromyalgia Resolved Hyperlipidemia Resolved Hypertension Resolved Medications Medication Instructions Start Date End Date Status [place] 325 mg-10 mg / 15 mL, Route: [...] Duration: 30 day, Stop date: 11/02/12 10:59:00 [place] 325 mg-10 mg / 30 mL, Route: PO, 10/04/2012 10/05/2012 Discontinued 15 mL oral solution Drug Form: SOLN, Dosing Weight 118.2, kg, Q4H, PRN Pain Score 6-10, Start date: 10/04/12 17:20:00, Duration: 30 day, Stop date: 11/03/12 17:19:00 [place] 325 mg-10 mg / 15 mL, Route: [...] 14:28:00, PRN Blood Glucose Results Blistex Lip [place] Route: TOP, Dosing 10/06/2012 10/06/2012 Deleted Weight [...] /LPF] Few /LPF *NA* (10/06/2012 11:42:00) UA Immaculata Yeast [None Seen /HPF] Moderate /HPF *ABN* [...] values reflect the clinical guidelines of the [place] [employer].8Interpretive Data: Adult reference range values reflect the clinical guidelines of the [place] [employer].9Interpretive Data: Adult reference range values reflect the clinical guidelines of the [place] [employer].HEMATOLOGY Most recent to oldest 1 [...] Catch FREE TEXT SOURCE: FINAL REPORTS Final Pxcfjy61,000 - 50,000 CFU/mL Enterococcus SpeciesPRELIMINARY REPORTS Preliminary Cvbrwd15,000 - 50,000 CFU/ mL Enterococcus Species ; Sensitivity PendingSUSCEPTIBILITY REPORT ENTERO Antibiotic INTERP. VDIL Ampicillin S Levofloxacin S Nitrofurantoin S Tetracycline R Vancomycin S Procedures Procedures Date Related Diagnosis section Cholecystectomy 1 Hand repair 2 Tonsillectomy 3 , [id number]
--- OUTSIDE RECORDS SUMMARY | 2018-06-07 11:52 | XMS REPORT | CCD ---
:1965 Author Organization [facility] Care Team Providers Name [...] Hypertension Resolved MRSA1, 2 10/23/2012 Active 1nares 10/23/201251255Tvavxsd added by Discern Expert. Medications Medication Instructions [...] mg, 1 supp, 10/23/2012 11/01/2012 Discontinued Route: VA, Drug form: SUPP, Q6H, Dosing Weight 113.636, kg, PRN Fever, Start date: 10/23/12 0:37:00, Duration: 30 day, Stop date: 11/22/12 0:36:00 Visipaque 320mg/ml 126 mL, Route: IVP, Drug Form: SOLN, Dosing Weight 113.636 , kg, ONCALL, STAT, Start date: 10/23/12 16:52:00, Duration: 1 doses or times, Dose=2.2ml/kg, Max ospv=969sn -- "To be infused by Radiology Staff ONLY" 10/2310/23/2012 Completed Dose=2.2ml/kg, Max aggf=097zd -- "To be infused by Radiology Staff [...] mg, 1 supp, 10/24/2012 10/24/2012 Deleted Route: VA, Drug form: SUPP, ONCE, Dosing Weight 78.2, [...] Duration: 1 doses or times, Dose=2.2ml/kg, Max gcon=379df -- "To be infused by Radiology Staff ONLY" 10/2310/23/2012 Completed Dose=2.2ml/kg, Max mxfr=601at -- "To be infused by Radiology Staff [...] Molecular Diagnostic Laboratory within the [facility]. The Molecular Diagnostic Laboratory is authorized [...] values reflect the clinical guidelines of the [place] [employer].11Interpretive Data: Adult reference range values reflect the clinical guidelines of the [place] [employer].12Interpretive Data: Adult reference range values reflect the clinical guidelines of the [place] [employer].13Interpretive Data: Reference range is based on recommendations in the Endocrine Society Clinical Practice Guideline (J Clin Endocrinol Metab 2011;96:1630-6335)14Result Comment: Specimen Moderately Hemolyzed.15Result Comment: Critical Result(s) called to daisy otoole at 10/25/2012 01:18:09 ROLLING UP MACHINE OPERATOR by tac. Read back OK.16Result Comment: Critical Result(s) called to Maribel Bustos at 10/24/2012 13:23:46 ROLLING UP MACHINE OPERATOR by lwb . Readback OK.17Result Comment: Critical Result(s) called to Lyn King at 10/24/2012 09:52:38 ROLLING UP MACHINE OPERATOR by lwb . Read back OK.18Result Comment: Critical Result(s) called to Jelani Rasmussen at 10/25/2012 00: 47:48 ROLLING UP MACHINE OPERATOR by RM. Read back OK.19Result Comment: Critical Result(s) called to mariana bustos at _ 10/24/2012 13:37:22 CSTby_lss. Readback OK.20Result Comment : Critical Result(s) called to romero belrte at _10/24/2012 09:50:18 ROLLING UP MACHINE OPERATOR by_lss. Read back OK.21Interpretive Data: [...] Data: Heparin Therapeutic Range: 57 - 92 Qyzznqj68Kcrffdmsikra Data: Heparin Therapeutic Range: 57 - 92 Gwltnrr99Yzdcgelcseoh Data: Heparin Therapeutic Range: 57 - 92 Seconds Microbiology Reports PROCEDURE:Culture: Urine STATUS: Auth (Verified) BODY SITE: COLLECTED DATE/TIME: 10/23/2012 20:33:00 SOURCE: Urine,Straight Cath FREE TEXT SOURCE: FINAL REPORTS Final Gheelr77,000 - 100,000 CFU/mL Gram Negative Rods , Lactose Fermenters , 2 [place] Types 50,000 - 100,000 CFU/mL Enterococcus Species [...]
--- OUTSIDE RECORDS SUMMARY | 2018-06-07 11:52 | XMS REPORT | CCD ---
[...] Hypertension Resolved MRSA1, 2 10/23/2012 Active 1nares 10/23/201205934Ahimyuh added by Discern Expert. Medications Medication Instructions [...] Duration: 30 day, Stop date: 12/06/12 1:48:00 [place] 5/325 oral tablet 1 tab, PO, Q6H, [...] Duration: 30 day, Stop date: 12/08/12 10:44:00 [place] 5/325 oral tablet 1 tab, Route: PO, [...] INJ, Q2H, Dosing Weight 100, kg, Total mvpa=8081 mg, Start date: 11/14/12 8:00:00, Duration: 2 [...] 11/08/2012 11/08/2012 Canceled PO, Drug form: TAB, [id number], Dosing Weight 100, kg, Start date: 11/08/12 [...] [Negative] Negative 1 (11/12/2012 21:54:26) 1Interpretive Data: Sapato.ruigene Clostridium difficile assay utilizes loop-mediated isothermalDNA amplification (LAMP) technology to detect a 204 bp region of the tcdA gene within the PaLoc genesegment present in all known toxigenic C. difficile strains. The assay utilizes FDA cleared IVD reagents. Performance characteristics have been verified by the Molecular Diagnostic Laboratory within the [facility]. The Molecular Diagnostic Laboratory is authorized [...] values reflect the clinical guidelines of the [place] [employer].10Interpretive Data: Adult reference range values reflect the clinical guidelines of the [place] [employer].11Result Comment: rechecked Critical Result (s) called leslie Conner Rose at 11/12/2012 02:56:37 MOSHGIACH by_mgm. Read back OK.12Interpretive Data: Adult reference range values reflect the clinical guidelines of the [place] [employer].13Result Comment: Critical Result(s) called to [...] 10.0 240 Poor Control, take action to qlsbn02Sgprbv Comment : Critical Result(s) called leslie Rose [...] Catch FREE TEXT SOURCE: FINAL REPORTS Final Kgfwio97,000 - 100,000 CFU/mL Enterococcus SpeciesPRELIMINARY REPORTS Preliminary Cxzntv92,000 - 100,000 CFU/ mL Enterococcus Species Identification And Sensitivity PendingSUSCEPTIBILITY REPORT ENTERO Antibiotic INTERP. VDIL Ampicillin S Levofloxacin S Nitrofurantoin S Tetracycline R Vancomycin S
--- OUTSIDE RECORDS SUMMARY | 2018-06-07 11:53 | XMS REPORT | CCD ---
[...] Hypertension Resolved MRSA1, 2 10/23/2012 Active 1nares 10/23/201235442Naflvpj added by Discern Expert. Medications Medication Instructions [...] 1 doses or times, Dose= 2.2ml/kg, Max feot=624ul -- "To be infused by Radiology Staff ONLY" 201211/16/2012 Discontinued Dose=2.2ml/kg, Max tasc=516ss -- "To be infused by Radiology Staff ONLY" calcium gluconate + Sodium 2,000 mg, 20 mL, Route: 11/17/2012 11/17/2012 Completed Chloride 0.9% IV 80 mL IVPB, ONCE, Dosing Weight 103.21, kg, Start date: 11/17/12 11:02:00, Stop date: 11/17/12 11:02:00 enoxaparin 40 mg, 0.4 mL, Route: 11/16/2012 11/17/2012 Discontinued SUB-Q, Drug form: INJ, [id number], Dosing Weight 100, kg, Start date: 11/16/12 [...] date: 11/16/12 13:40:00, Stop date: 11/16/12 13:40:00 [place] 5/325 oral tablet 1 tab, Route: PO, [...] values reflect the clinical guidelines of the [place] [employer].7Interpretive Data: Adult reference range values reflect the clinical guidelines of the [place] [employer].HEMATOLOGY Most recent to oldest [Reference [...]
--- OUTSIDE RECORDS SUMMARY | 2018-06-07 11:54 | XMS REPORT | CCD ---
:1965 Author Organization [facility] Care Team Providers Name Role Phone JohnbeckiReno [...] 10/23/2012 Active Neuropathy Resolved - Nares/ - Xyhos2igtas 10/23/201251394Medpyzt added by Discern Expert. Medications Medication Instructions [...] 03/08/13 3:17:00, Stop date: 03/08/13 3:17:00 lidocaine-epi 1%-1:079796 1 ml, Route: SUB-Q, Drug 03/07/2013 03/07/2013 [...] date: 03/07/13 2:35:00, Stop date: 03/07/13 2:35:00 [place] 5/325 oral tablet 1 tab, PO, Q6H, [...] Results BEDSIDE GLUCOSE TESTING Most recent to [facility] 1 2 3 [Reference Range]: Gluc [...] Reportable Limit: 200 mg/dL.URINALYSIS Most recent to [facility] [Reference Range]: 1 2 3 UA [...] clinical guidelines of the [place] [employer].8Interpretive Data: Adult reference range values reflect the clinical guidelines of the [place] [employer].9Interpretive Data: Adult reference range values reflect the clinical guidelines of the [place] [employer].HEMATOLOGY Most recent to oldest 1 [...]
--- OUTSIDE RECORDS SUMMARY | 2018-06-07 11:54 | XMS REPORT | CCD ---
:1965 Author Organization [facility] Care Team Providers Name Role Phone Marcela Michaelsbhumika [place] Consulting Provider Alberto Mata Consulting Provider Allergies, Adverse Reactions, Alerts Substance Reaction Status NKDA Active Problem List Condition Effective Dates Status Acid reflux Resolved Anemia Resolved Anxiety Resolved Arthritis Resolved Depression Resolved Diabetes mellitus type 1 Resolved Edema of lower extremity Resolved Fibromyalgia Resolved Hyperlipidemia Resolved Hypertension Resolved [place] - Myocardial infarction 10/22/2012 Resolved MRSA1, 2, 3, 4 10/23/2012 Active Neuropathy Resolved - Nares - Ejcwr0indds 10/23/201226945Pfyzgrz added by Discern Expert. Medications Medication Instructions [...] IVPB, Drug 12/02/2012 12/02/2012 Discontinued form: PDR/INJ, [id number], Dosing Weight 100, kg, Start date: 12/02/12 [...] 11/29/2012 11/29/2012 Discontinued SUB-Q, Drug form: INJ, [id number], Dosing Weight 101.364, kg, Start date: 11/29/12 [...] mg, 1 supp, Route: 12/04/2012 12/07/2012 Discontinued IN, Drug form: SUPP, Q4H, Dosing Weight 100, [...] date: 12/04/12 23:39:00, Stop date: 12/04/12 23:39:00 [place] 7.5/325 oral tablet 1 tab, Route: PO, [...] IVPB, Drug 11/29/2012 12/01/2012 Discontinued form: PDR/INJ, [id number], Dosing Weight 100, kg, Start date: 11/29/12 [...] 7:47:00 Phenergan 25 mg rectal 1 supp, IN, Q6H, PRN, 9 11/29/2012 Ordered suppository supp, [...] by the Molecular Diagnostic Laboratory within the [facility]. The Molecular Diagnostic Laboratory is authorized [...] values reflect the clinical guidelines of the [place] [employer].11Interpretive Data: Adult reference range values reflect the clinical guidelines of the [place] [employer].12Interpretive Data: Adult reference range values reflect the clinical guidelines of the [place] [employer].13Interpretive Data: No established reference ranges.14Interpretive [...] Data: Heparin Therapeutic Range: 57 - 92 Yegckmo23Hdikkxvqpoda Data: Heparin Therapeutic Range: 57 - 92 [...] Catch FREE TEXT SOURCE: FINAL REPORTS Final Yxfkbk75,000 - 50,000 CFU/mL Yeast <10,000 CFU/mL Skin EsPRELIMINARY REPORTS Preliminary ReportNo Growth; Holding Procedures Procedures Date Related Diagnosis Heart procedure 1 1cardiac stent for [place]
--- OUTSIDE RECORDS SUMMARY | 2018-06-07 11:55 | XMS REPORT | CCD ---
:1965 Author Organization [facility] Care Team Providers Name Role Phone Sukhwinder Renteria Referring Provider Allergies, Adverse Reactions, Alerts Substance Reaction Status NKDA Active Problem List Condition Effective Dates Status Acid reflux Resolved Anemia Resolved Anxiety Resolved Arthritis Resolved Depression Resolved Diabetes mellitus type 1 Resolved Edema of lower extremity Resolved Fibromyalgia Resolved Gastric ulcer Resolved Hyperlipidemia Resolved Hypertension Resolved [place] - Myocardial infarction 10/22/2012 Resolved MRSA1, 2, 3, 4 10/23/2012 Active Neuropathy Resolved - Nares - Jxwqd8vtome 10/23/201218885Naxryns added by Discern Expert. Medications Medication Instructions [...]
--- OUTSIDE RECORDS SUMMARY | 2018-06-07 11:55 | XMS REPORT | CCD ---
:1965 Author Organization [facility] Care Team Providers Name Role Phone Robert [...] 10/23/2012 Active Neuropathy Resolved - Nares - Pstrw9etfty 10/23/201209357Rripluw added by Discern Expert. Medications Medication Instructions [...] values reflect the clinical guidelines of the [place] [employer].HEMATOLOGY Most recent to oldest [Reference [...]
--- OUTSIDE RECORDS SUMMARY | 2018-06-07 11:55 | XMS REPORT | CCD ---
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 Medications Medication Instructions Start Date End Date Status acetaminophen-hydrocod 1 tab, Route: PO, Drug Form: 07/12/2013 07/14/2013 Discontinued one 325 mg-5 mg oral TAB, Dosing Weight 86.364, tablet kg, Q4H, PRN Pain, Start date: 07/12/13 18:23:00, Duration: 30 day, Stop date: 08/11/13 18:22:00(Same as: Cochrane 325/5) Do not exceed 4gm/day of acetaminophen. [...] 1 doses or times, Dose =2.2ml/kg, Max [id number] -- "To be infused by Radiology Staff ONLY" 201207/12/2013 Completed Dose=2.2ml/kg, Max [id number] -- "To be infused by Radiology Staff [...] day, Stop date: 08/11/13 9:00:00(Same as: Lopressor) Cochrane 5/325 oral 1 tab, Route: PO, Dosing [...] date: 08/11/13 9:00:00(Same as: Mag-Ox 400)Magnesium oxide [id number] elemental magnesiumDose=____mg magnesium oxide (___mg elemental magnesium) [...] [Negative] Negative 1 (07/13/2013 00:00:59) 1Interpretive Data: Fritter illumigene Clostridium difficile assay utilizes loop-mediated isothermalDNA amplification (LAMP) technology to detect a 204 bp region of the tcdA gene within the PaLoc genesegment present in all known toxigenic C. difficile strains. The assay utilizes FDA cleared IVD reagents. Performance characteristics have been verified by the Molecular Diagnostic Laboratory within the [facility]. The [facility] Laboratory is authorized [...] /LPF] Many /LPF *ABN* (07/12/2013 03:00:00) UA Mason Yeast [None Seen /HPF] Moderate /HPF *ABN* [...] values reflect the clinical guidelines of the [place] [employer].9Interpretive Data: Adult reference range values reflect the clinical guidelines of the [place] [employer].10Interpretive Data: Adult reference range values reflect the clinical guidelines of the [place] [employer].HEMATOLOGY Most recent to oldest [Reference [...] to oldest [Reference Range]: 1 2 3 Register-HIV 1/2 Ab [Negative] Negative *NA* (07/14/2013 00:27:00) Register-Hep C Ab [Negative] Negative *NA* (07/14/2013 00:27:00) CDC-HIV 1/2 Ab [Negative] Negative *NA* (07/12/2013 16:02:06)
--- OUTSIDE RECORDS SUMMARY | 2018-06-07 11:55 | XMS REPORT | CCD ---
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 Medications Medication Instructions [...] values reflect the clinical guidelines of the [place] [employer].7Interpretive Data: Adult reference range values reflect the clinical guidelines of the [place] [employer].HEMATOLOGY Most recent to oldest [Reference [...]
--- OUTSIDE RECORDS SUMMARY | 2018-06-07 11:56 | XMS REPORT ---
:1965 Author Organization [facility] Address [address] [place] [address] [address] [place] [address] Care Team Providers Name Role Phone SHANI ALMARAZ Unavailable Unavailable MILO SNELL Unavailable Unavailable Problems This patient has no known problems. Allergies, Adverse Reactions, Alerts This patient has no known allergies or adverse reactions. Medications This patient has no known medications. Results Test Description Test Time Test Comments Text Results Atomic Results Result Comments POCT-GLUCOSE METER 2018-05-31 14:44:00 Test Item Value Reference Range Comments POC-GLUCOSE METER (BEAKER) (test 211 mg/dL 70-110 TESTED AT [address] ogry=6837) [place] [id number] POCT-GLUCOSE [id number] 13:04:00 Test Item Value Reference Range Comments POC-GLUCOSE METER (BEAKER) 282 mg/dL 70-110 TESTED AT [address] (test llsn=2278) [place] [id number] POCT-GLUCOSE [id number] 14:35:00 Test Item Value Reference Range Comments POC-GLUCOSE METER (BEAKER) 200 mg/dL 70-110 TESTED AT [address] (test jten=4028) [place] [id number] 12:24:00 Test Item Value Reference Range Comments SODIUM (BEAKER) (test begx=101) 136 meq/L 136-145 POTASSIUM (BEAKER) (test ramk=002) 5.4 meq/L 3.5-5.1 CHLORIDE (BEAKER) (test ttzb=708) 102 meq/L 98-107 CO2 (BEAKER) (test xfga=274) 25 meq/L 22-29 [id number] 12:24:00 Test Item Value Reference Range Comments GLUCOSE RANDOM (BEAKER) (test ixik=137) 353 mg/dL 70-105 BUN AND [id number] 12:24:00 Test Item Value Reference Range Comments BLOOD UREA NITROGEN 14 mg/dL 7-21 ([facility]) (test vgzh=627) CREATININE ([facility]) (test 1.08 mg/dL 0.57-1.25 eaop=858) EGFR ([facility]) (test 53 mL/min/1.73 sq m ESTIMATED GFR IS NOT sivo=4544) ACCURATE CREATININE CLEARANCE IN PREDICTING GLOMERULAR FILTRATION RATE. ESTIMATED GFR IS NOT APPLICABLE FOR DIALYSIS PATIENTS. POCT-HEMOGLOBIN [id number] 11:43:00 Test Item Value Reference Range Comments POC-HEMOGLOBIN METER 12.1 g/dL 12.0-15.0 [address]ED AT [address] ([facility]) (test uwpf=7180) [place] [address] POCT-GLUCOSE [id number] 11:43:00 Test Item Value Reference Range Comments POC-GLUCOSE METER ([facility]) 320 mg/dL 70-110 Verify with Lab draw/TESTED AT (test ohgi=4055) [place] [id number] [address] [place] [address]
[2018-06-07] MEDS ORDERED: ALBUTEROL 2.5 MG/3 ML NEB SOL ONE (11:57)
[2018-06-07] MEDS ORDERED: HYDROCODONE/CHLORPHEN 5 ML/OSYR ONE (11:58)
[2018-06-07] MEDS ORDERED: predniSONE 20 MG TAB ONE (11:58)
--- NOTE | 2018-06-07 12:37 | EDPHYS ---
Physician Documentation [facility] Name: Ila Pérez Age: 52 yrs Sex: Female : 1965 Arrival Date: 06/07/2018 Time: 10:47 Bed 20 Private MD: Fabián Guerra E ED Physician Russel Sifuentes HPI: 06/07 11:38 This 52 yrs old Female presents to ER via Wheelchair with complaints of Sinus jr8 Congestion, Shortness Of Breath. 11:38 Onset: The symptoms/episode began/occurred gradually, 2 day(s) ago. Severity of jr8 symptoms: At their worst the symptoms were moderate, in the emergency department the symptoms are unchanged. Associated signs and symptoms: Pertinent positives: chest pain, with cough. The patient has experienced similar episodes in the past, a few times. The patient has not recently seen a physician. Sinus congestion that has now developed into cough, and wheezing. History of both bronchitis and pneumonia in past . 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025 mg Oral tab 1-2 tablets every 6 hours [Active]; duloxetine 60 mg Oral cpDR 2 caps once daily [Active]; ferrous sulfate 325 mg (65 mg iron) Oral TbEC twice a day [Active]; furosemide 20 mg Oral tab one to two tabs every morning [Active]; Ginko [place]bo[place] 120 mg daily [Active]; Glucagon Emergency Kit (human) 1 mg IM kit 1 mL [Active]; Glucosamine Oral [Active]; Humalog 100 unit/mL Sub-Q soln [Active]; hydroxyzine HCl 25 mg Oral tab 1 tab twice a day [Active]; k2 100 mcg bid [Active]; Lantus 18 U Sub-Q soln daily [Active]; lisinopril 5 mg Oral tab 1 tab once daily [Active]; lorazepam 1 mg Oral tab twice a day [Active]; lorazepam 1 mg Oral tab 1 tab 3 times per day [Active]; Lyrica Oral 150 mg 2 times per day [Active]; metoprolol succinate 25 mg Oral Tb24 1 tab once daily [Active]; Vasculera 630 mg Oral tab daily [Active]; trazodone 50 mg Oral tab nightly [Active]; tramadol 50 mg Oral tab 1 tab three times a day [Active]; Rozerem 8 mg Oral tab 1 tab bedtime [Active]; pantoprazole 40 mg Oral TbEC 1 tab 2 times per day [Active]; ondansetron HCl 8 mg Oral tab [Active]; nitroglycerin 0.4 mg SL subl 1 tab every 5 minutes [Active]; Myrbetriq 25 mg Oral Tb24 1 tab once daily [Active]; multivitamin Oral cap [Active]; - PMHx: 11:18 Anxiety; Arthritis; Chronic pain; Depression; Diabetes - IDDM; Esophagitis; aj1 Fibromyalgia; gastroporeisis; GERD; heart disease; High Cholesterol; Hypertension; Myocardial infarction; neuropathy; raynaud's; sleep disorder; Tachycardia; - PSHx: 11:37 ; trigger finger release; rotator cuff; Knee surgery; Tonsillectomy; rb1 Cholecystectomy; Carpal Tunnel Repair; cataract sx; Gastric Bypass; - Immunization history:: Adult Immunizations up to date. - Ebola Screening: : Patient negative for fever greater than or equal to 101.5 degrees Fahrenheit, and additional compatible Ebola Virus Disease symptoms. - Social history:: Smoking status: Patient/guardian denies using tobacco. ROS: 11:38 Eyes: Negative for injury, pain, redness, and discharge, Neck: Negative for injury, jr8 pain, and swelling, Abdomen/GI: Negative for abdominal pain, nausea, vomiting, diarrhea, and constipation, Back: Negative for injury and pain, MS/Extremity: Negative for injury and deformity, Skin: Negative for injury, rash, and discoloration, Neuro: Negative for headache, weakness, numbness, tingling, and seizure. 11:38 ENT: Positive for nasal discharge, rhinorrhea, sinus congestion, Negative for drainage from ear(s), ear pain, sore throat, difficulty swallowing, difficulty handling secretions, hoarseness. 11:38 Cardiovascular: Positive for chest pain, with cough. 11:38 Respiratory: Positive for cough, with no reported sputum, shortness of breath, wheezing. Exam: 11:38 Eyes: Pupils equal round and reactive to light, extra-ocular motions intact. Lids and jr8 lashes normal. Conjunctiva and sclera are non-icteric and not injected. Cornea within normal limits. Periorbital areas with no swelling, redness, or edema. ENT: Nares patent. No nasal discharge, no septal abnormalities noted. Tympanic membranes are normal and external auditory canals are clear. Oropharynx with no redness, swelling, or masses, exudates, or evidence of obstruction, uvula midline. Mucous membranes moist. Neck: Trachea midline, no thyromegaly or masses palpated, and no cervical lymphadenopathy. Supple, full range of motion without nuchal rigidity, or vertebral point tenderness. No Meningismus. Cardiovascular: Regular rate and rhythm with a normal S1 and S2. No gallops, murmurs, or rubs. Normal PMI, no JVD. No pulse deficits. Abdomen/GI: Soft, non-tender, with normal bowel sounds. No distension or tympany. No guarding or rebound. No evidence of tenderness throughout. Back: No spinal tenderness. No costovertebral tenderness. Full range of motion. Skin: Warm, dry with normal turgor. Normal color with no rashes, no lesions, and no evidence of cellulitis. MS/ Extremity: Pulses equal, no cyanosis. Neurovascular intact. Full, normal range of motion. Neuro: Awake and alert, GCS 15, oriented to person, place, time, and situation. Cranial nerves II-XII grossly intact. Motor strength 5/5 in all extremities. Sensory grossly intact. Cerebellar exam normal. Normal gait. 11:38 Respiratory: the patient does not display signs of respiratory distress, Respirations: normal, symetrical, no use of accessory muscles, no grunting, no evidence of nasal flaring, no prolonged exhalations, no pursed lip breathing, no retractions, no shallow respirations, no splinting, no tachypnea, Breath sounds: wheezing: expiratory that is mild, is heard in the left upper lobe and left posterior upper lobe. Vital Signs: 11:18 BP 145 / 68; Pulse 105; Resp 20; Temp 98.5; Pulse Ox 98% on R/A; Weight 93.44 kg (R); aj1 Height 5 ft. 4 in. (162.56 cm) (R); Pain 6/10; 12:18 BP 161 / 66; Pulse 103; Resp 17; Pulse Ox 99% ; rb1 13:18 BP 154 / 67; Pulse 95; Resp 16; Pulse Ox 99% on R/A; rb1 11:18 Body Mass Index 35.36 (93.44 kg, 162.56 cm) aj1 MDM: 11:31 Patient medically screened. jr8 12:36 Data reviewed: vital signs, nurses notes, radiologic studies, plain films, and as a jr8 result, I will discharge patient. Data interpreted: Pulse oximetry: on room air is 98 %. Interpretation: normal. Counseling: I had a detailed discussion with the patient and/or guardian regarding: the historical points, exam findings, and any diagnostic results supporting the discharge/admit diagnosis, radiology results, the need for outpatient follow up, a family practitioner, to return to the emergency department if symptoms worsen or persist or if there are any questions or concerns that arise at home. 06/07 11:35 Order name: XRAY Chest Pa And Lat (2 Views); Complete Time: 12:45 jr8 Administered Medications: 11:59 Drug: Albuterol 2.5 mg Route: Inhalation; rb1 11:59 Drug: predniSONE 60 mg Route: PO; rb1 12:25 Follow up: Response: No adverse reaction rb1 11:59 Drug: Tussionex Pennkinetic ER 5 ml Route: PO; rb1 12:25 Follow up: Response: No adverse reaction rb1 Disposition: 06/08 07:28 Co-signature as Attending Physician, Russel Sifuentes MD I agree with the assessment and corey plan of care. Disposition: 06/07/18 12:37 Discharged to Home. Impression: Acute bronchitis. - Condition is Stable. - Discharge Instructions: Acute Bronchitis, Adult. - Prescriptions for Prednisone 20 mg Oral Tablet - take 1 tablet by ORAL route once daily for 5 days; 5 tablet. Albuterol Sulfate 90 mcg/actuation - inhale 1-2 puff by INHALATION route every 4-6 hours; 1 Inhaler. Guaifenesin AC 10- 100 mg/5 mL Oral Liquid - take 10 milliliter by ORAL route every 4 hours As needed; 240 milliliter. - Medication Reconciliation Form, Thank You Letter, Antibiotic Education, Prescription Opioid Use form. - Follow up: Fabián Guerra MD; When: 2 - 3 days; Reason: Recheck today's complaints, Continuance of care, Re-evaluation by your physician. - Problem is new. - Symptoms have improved. Signatures: Dispatcher [employer] EDKarine Maya RN RN aj1 Russel Sifuentes MD MD cha Roszak, Josh, PA PA jr8 Maribel Logan, RN RN rb1 Corrections: (The following items were deleted from the chart) 06/07 13:27 12:37 06/07/2018 12:37 Discharged to Home. Impression: Acute bronchitis. Condition is rb1 Stable. Forms are Medication Reconciliation Form, Thank You Letter, Antibiotic Education, Prescription Opioid Use. Follow up: Fabián Guerra; When: 2 - 3 days; Reason: Recheck today's complaints, Continuance of care, Re-evaluation by your physician. Problem is new. Symptoms have improved. jr8
--- NOTE | 2018-06-07 12:37 | ER ---
Nurse's Notes [facility] Emergency Department Name: Ila Pérez Age: 52 yrs Sex: Female : 1965 Arrival Date: 06/07/2018 Time: 10:47 Bed 20 Private MD: Fabián Guerra E Diagnosis: Acute bronchitis Presentation: 06/07 11:13 Presenting complaint: Patient states: "I've had sinus drainage and congestion for a few aj1 days, and I started having trouble breathing and pain in my left side last night. It hurts to take a deep breath" Patient reports cough Breath sounds CTA. Transition of care: patient was not received from another setting of care. Onset of symptoms was June 06, 2018. Risk Assessment: Do you want to hurt yourself or someone else? Patient reports no desire to harm self or others. Initial Sepsis Screen: Does the patient meet any 2 criteria? HR > 90 bpm. Does the patient have a suspected source of infection? Yes: Productive cough/pneumonia. Care prior to arrival: None. 11:13 Method Of Arrival: Wheelchair aj1 11:13 Acuity: DEVONTE 3 aj1 Triage Assessment: 11:18 General: Appears in no apparent distress. uncomfortable, Behavior is calm, cooperative, aj1 appropriate for age. Pain: Complains of pain in chest Pain currently is 6 out of 10 on a pain scale. Neuro: Level of Consciousness is awake, alert, obeys commands. Cardiovascular: Patient's skin is warm and dry. Respiratory: Reports cough that is hacking, persistent Airway is patent Respiratory effort is even, unlabored, Respiratory pattern is regular, symmetrical, Breath sounds are clear bilaterally. Onset: The symptoms/episode began/occurred yesterday, the patient has mild shortness of breath. 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: 11:37 LMP N/A - Post-menopause rb1 Historical: - Allergies: 11:18 Gluten Protein; aj1 - Home Meds: 11:18 Albuterol Inhl [Active]; aspirin 81 mg Oral chew 1 tab once daily [Active]; benzonatate aj1 100 mg Oral cap 1 cap twice a day [Active]; bupropion HCl 150 mg Oral TbER once daily [Active]; Carafate 100 mg/mL Oral susp 10 mL three times a day [Active]; cholestopl 1 mg twice a day [Active]; Cinnamon 500 mg Oral cap 2 cap daily [Active]; Claritin 10 mg Oral tab 1 tab once daily [Active]; cyclobenzaprine 10 mg Oral tab twice a day [Active]; D3 2000 IU 2 per day [Active]; diphenoxylate-atropine 2.5-0.025 mg Oral tab 1-2 tablets every 6 hours [Active]; duloxetine 60 mg Oral cpDR 2 caps once daily [Active]; ferrous sulfate 325 mg (65 mg iron) Oral TbEC twice a day [Active]; furosemide 20 mg Oral tab one to two tabs every morning [Active]; Ginko [place] 120 mg daily [Active]; Glucagon Emergency Kit (human) 1 mg IM kit 1 mL [Active]; Glucosamine Oral [Active]; Humalog 100 unit/mL Sub-Q soln [Active]; hydroxyzine HCl 25 mg Oral tab 1 tab twice a day [Active]; k2 100 mcg bid [Active]; Lantus 18 U Sub-Q soln daily [Active]; lisinopril 5 mg Oral tab 1 tab once daily [Active]; lorazepam 1 mg Oral tab twice a day [Active]; lorazepam 1 mg Oral tab 1 tab 3 times per day [Active]; Lyrica Oral 150 mg 2 times per day [Active]; metoprolol succinate 25 mg Oral Tb24 1 tab once daily [Active]; Vasculera 630 mg Oral tab daily [Active]; trazodone 50 mg Oral tab nightly [Active]; tramadol 50 mg Oral tab 1 tab three times a day [Active]; Rozerem 8 mg Oral tab 1 tab bedtime [Active]; pantoprazole 40 mg Oral TbEC 1 tab 2 times per day [Active]; ondansetron HCl 8 mg Oral tab [Active]; nitroglycerin 0.4 mg SL subl 1 tab every 5 minutes [Active]; Myrbetriq 25 mg Oral Tb24 1 tab once daily [Active]; multivitamin Oral cap [Active]; - PMHx: 11:18 Anxiety; Arthritis; Chronic pain; Depression; Diabetes - IDDM; Esophagitis; aj1 Fibromyalgia; gastroporeisis; GERD; heart disease; High Cholesterol; Hypertension; Myocardial infarction; neuropathy; raynaud's; sleep disorder; Tachycardia; - PSHx: 11:37 ; trigger finger release; rotator cuff; Knee surgery; Tonsillectomy; rb1 Cholecystectomy; Carpal Tunnel Repair; cataract sx; Gastric Bypass; - Immunization history:: Adult Immunizations up to date. - Ebola Screening: : Patient negative for fever greater than or equal to 101.5 degrees Fahrenheit, and additional compatible Ebola Virus Disease symptoms. - Social history:: Smoking status: Patient/guardian denies using tobacco. Screenin:37 Abuse screen: Denies threats or abuse. Nutritional screening: No deficits noted. rb1 Tuberculosis screening: No symptoms or risk factors identified. Fall Risk None identified. Assessment: 11:37 General: Appears uncomfortable, Behavior is calm, cooperative, Reports feeling ill for rb1 2-3 days. Pain: Complains of pain in chest Pain currently is 8 out of 10 on a pain scale. Pain began pt. said her chest hurts when she coughs. Neuro: Level of Consciousness is awake, alert, obeys commands, Oriented to person, place, time, situation. Cardiovascular: Rhythm is regular. Respiratory: Airway is patent Respiratory effort is even, unlabored, Respiratory pattern is regular, symmetrical. GI: Reports diarrhea, nausea. : No signs and/or symptoms were reported regarding the genitourinary system. Derm: Skin is pink, warm \\T\\ dry. 12:30 Reassessment: Patient appears in no apparent distress at this time. Patient and/or rb1 family updated on plan of care and expected duration. Pain level reassessed. Patient is alert, oriented x 3, equal unlabored respirations, skin warm/dry/pink. 13:22 Reassessment: Patient appears in no apparent distress at this time. No changes from [facility] previously documented assessment. Vital Signs: 11:18 BP 145 / 68; Pulse 105; Resp 20; Temp 98.5; Pulse Ox 98% on R/A; Weight 93.44 kg (R); aj1 Height 5 ft. 4 in. (162.56 cm) (R); Pain 6/10; 12:18 BP 161 / 66; Pulse 103; Resp 17; Pulse Ox 99% ; rb1 13:18 BP 154 / 67; Pulse 95; Resp 16; Pulse Ox 99% on R/A; rb1 11:18 Body Mass Index 35.36 (93.44 kg, 162.56 cm) aj1 ED Course: 10:47 Patient arrived in ED. as 10:47 Guerra, Fabián, MD is Private Physician. as 11:16 Triage completed. aj1 11:18 Arm band placed on Patient placed in waiting room, Patient notified of wait time. aj1 11:30 Elkin Nagy PA is PHCP. jr8 11:30 Russel Sifuentes MD is Attending Physician. jr8 11:37 Maribel Logan, RN is Primary Nurse. rb1 11:37 Patient has correct armband on for positive identification. Bed in low position. Call rb1 light in reach. Side rails up X 1. Pulse ox on. NIBP on. 12:15 Patient moved to radiology via wheelchair. mh1 12:17 XRAY Chest Pa And Lat (2 Views) In Process Unspecified. EDMS 12:37 Fabián Guerra MD is Referral Physician. jr8 12:41 No provider procedures requiring assistance completed. ss 13:26 Patient did not have IV access during this emergency room visit. rb1 Administered Medications: 11:59 Drug: Albuterol 2.5 mg Route: Inhalation; rb1 11:59 Drug: predniSONE 60 mg Route: PO; rb1 12:25 Follow up: Response: No adverse reaction rb1 11:59 Drug: Tussionex Pennkinetic ER 5 ml Route: PO; rb1 12:25 Follow up: Response: No adverse reaction rb1 Outcome: 12:37 Discharge ordered by MD. jr8 13:26 Discharged to home via wheelchair, with family. rb1 13:26 Condition: stable 13:26 Discharge instructions given to patient, Instructed on discharge instructions, follow up and referral plans. medication usage, Demonstrated understanding of instructions, follow-up care, medications, Prescriptions given X 3. 13:27 Patient left the ED. rb1 Signatures: Dispatcher [employer] EDRI Karine Cuello RN RN aj1 Sandra Weinberg mh1 Aylin Starks Shelby, RN RN Elkin Nagy PA PA jr8 Maribel Logan, RN RN rb1 Corrections: (The following items were deleted from the chart) 11:19 11:13 Presenting complaint: Patient states: "I've had sinus drainage and congestion for aj1 a few days, and I started having trouble breathing and pain in my left side last night. It hurts to take a deep breath" aj1 12:14 11:37 General: Appears uncomfortable, Behavior is calm, cooperative, Reports fever for rb1 2-3 days, rb1
--- NOTE | 2018-06-07 12:44 | RAD REPORT ---
EXAM DESCRIPTION: RAD - Chest Pa And Lat (2 Views) - 06/07/2018 12:26 pm CLINICAL HISTORY: Cough;Congestion Chest pain. COMPARISON: Chest Single View dated 04/29/2018; Chest Single View dated 12/19/2017; Chest Single View dated 12/12/2017; Chest Single View dated 03/06/2017 FINDINGS: The lungs are clear. The heart is normal in size. No displaced fractures. IMPRESSION: No acute or concerning finding suspected.
[2018-06-07 13:43] VITALS: O2SAT 99
[2018-06-07 13:44] VITALS: TEMP 98.5
[2018-06-07 13:45] VITALS: BP 154/67
== END 2018-06-07 13:27 | disposition home or self-care (01) ==
LOC: ER 10:44
DX: J20.9 Acute bronchitis, unspecified (principal); I10 Essential (primary) hypertension; E11.9 Type 2 diabetes mellitus without complications; E78.00 Pure hypercholesterolemia, unspecified; I51.9 Heart disease, unspecified; I25.2 Old myocardial infarction; Z79.82 Long term (current) use of aspirin; Z79.4 Long term (current) use of insulin; Z91.018 Allergy to other foods
CPT/HCPCS: 71046; 99284; J7512

== ENCOUNTER 2018-06-11 03:23 | Observation (INO) | payer MEDICARE ==
--- OUTSIDE RECORDS SUMMARY | 2018-06-11 03:26 | XMS REPORT | Clinical Summary ---
:1965 Author Organization [facility] Address [address] [place] [address] Phone Care Team Providers Name Role Phone [...] Description 05/31/2018 Hospital Encounter Gastroenterology Boone Barahona [facility] 05/31/2018 Procedure Pass Gastroenterology 05/31/2018 Surgery Gastroenterology Boone Barahona UPPER ENDOSCOPY [facility] 05/30/2018 Anesthesia Event Gastroenterology Octaviano Mejia MD 05/24/2018 Hospital Encounter Pre-Admission Testing 06/25/2017 Hospital Encounter Jayden Marte MD 06/25/2017 Procedure Pass 06/25/2017 Surgery Jayden Marte TRIGGER B., MD FINGER 06/24/2017 Hospital Encounter Pre-Admission Testing Jayden Marte MD 06/24/2017 Anesthesia Event Sly Malloy MD after 06/10/2017 Social History Tobacco Use Types Packs/Day Years [...] bypass status CDT for obesity KARSON CORRAL FINGER 06/25/2017 1:10 PM Trigger finger of left CDT thumb after 06/10/2017 Results POC-Glucose meter (05/31/2018 2:40 PM)Only the most recent of4 resultswithin the time period is included. Component Value Ref Range POC-Glucose Meter 211 (H)Comment: TESTED AT [address] 70 - 110 mg/[place] [address] Specimen Performing Laboratory Blood [facility] [address] [address] REPORT OF PROCEDURE - ENDOSCOPY URL (05/31/2018 2:37 PM)ECG 12 lead (2016 1:04 PM) Specimen Performing Laboratory GE MUSE Narrative Ventricular Rate 76 BPM Atrial Rate 76 BPM P-R Interval 156 ms QRS Duration 86 ms Q-T Interval 382 ms QTC Calculation(Bazett) 429 ms P [place] 7 degrees R [place] 59 degrees T [place] 28 degrees Normal sinus rhythm Normal ECG No previous ECGs available Confirmed by MD NASSAR CHUNG-SHIN ([id number] on 07/06/2017 10:28:29 AM Procedure Note Interface, External Ris In - 07/06/2017 10:28 AM CDT Ventricular Rate 76 BPM Atrial Rate 76 BPM P-R Interval 156 ms QRS Duration 86 ms Q-T Interval 382 ms QTC Calculation(Bazett) 429 ms P [place] 7 degrees R [place] 59 degrees T [place] 28 degrees Normal sinus rhythm Normal ECG [...] PATIENTS. Specimen Performing Laboratory Blood - Arm, [address] [address] Glucose (06/25/2017 11:38 AM) Component Value Ref Range Glucose 353 (H) 70 - 105 mg/dL Specimen Performing Laboratory Blood - Arm, [address] [address] Electrolytes (06/25/2017 11:38 AM) Component Value Ref Range Sodium 136 136 - 145 meq/L Potassium 5.4 (H) 3.5 - 5.1 meq/L Chloride 102 98 - 107 meq/L CO2 25 22 - 29 meq/L Specimen Performing Laboratory Blood - Arm, [address] [address] POC-Hemoglobin meter (06/25/2017 11:34 AM) Component Value Ref Range POC-Hemoglobin Meter 12.1Comment: TESTED AT [address] 12.0 - 15.0 g/ dL [employer] [address] Specimen Performing Laboratory Blood [address] [place] [address] POCT , urine (06/25/2017 10:56 AM) Component Value Ref Range Test Urine, POC Negative Control line present?, POC Yes Background clear?, POC Yes UPT Cassette Lot #, POC [id number] UPT Cassette Expiration Date, POC 11/03/18 Specimen Performing Laboratory Urine after 06/10/2017
[2018-06-11] MEDS ORDERED: ALBUTEROL 2.5 MG/3 ML NEB SOL ONE (04:06)
[2018-06-11] MEDS ORDERED: IPRATROPIUM BROM 0.5MG/2.5ML ONE (04:06)
[2018-06-11] MEDS ORDERED: NA CHLORIDE 0.9% 1,000 ML ONE (04:06)
[2018-06-11 04:15] LABS: Arterial Blood Carboxyhemoglob 1.2 % (0-1.5); Blood Gas Oxyhemoglobin 87.1 % (94-97); Blood O2 Saturation 88.9 % (92-98.5)
[2018-06-11] MEDS ORDERED: ONDANSETRON 4 MG/2 ML VIAL ONE (04:16)
--- OUTSIDE RECORDS SUMMARY | 2018-06-11 04:22 | XMS REPORT | Continuity of Care Document ---
:1965 Author Organization Interface Problems Problem Status Onset Classification Date Comments Source Date Reported PAIN IN Active 08/13/20 [facility] ABDOMEN/NAUSEA/TI Medical GHTENESS IN [facility] Center BDDC/GASTROESOPHA Active 07/24/20 [facility] GEAL REFLUX [address] [place] [address] DISEASE Center VOMITING Active 07/11/[address] GASTROPARESIS Active 07/11/[address] CHEST PAIN Active 04/02/[address] Center R/O ACS Active 04/02/[address] SOB/CHEST PAIN Active 03/06/[address] HYPERGLYCEMIA Active 03/06/20 [facility] DEHYDRATION [address] [place] [address] GASTROPARESIS Center NASEAU Active 01/11/[address] Center N/V Active 11/29/[address] VOMITTING, Active 11/29/19 [facility] DIABETIC, HEART [address] [place] [address] PT Center NAUSEA, VOMITTING Active 11/17/[address] ACS R/O AND Active 11/17/19 [facility] PERSISTANT N/V [address] [place] [address] MRSA<sup>1, Active 10/23/19 Problem 11/19/2012 2Problem [facility] </sup><sup>2</sup 13 added by Medical > Discern Center Expert. MRSA<sup>1, 2, 3, Active 10/23/19 Problem 08/15/2013 4Problem [facility] 4</sup> 13 added by Medical Discern Center Expert. MRSA<sup>1, Active 10/23/19 Problem 04/05/2013 4Problem [facility] </sup><sup>2, 13 added by Medical </sup><sup>3, Discern Center </sup><sup>4</sup Expert. 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/22/19 Problem 08/15/2013 [facility] infarction [address] [place] [address] NE - Myocardial Resolved 10/22/19 Problem 04/05/2013 [facility] infarction [address] [place] [address] DSU/ REFLUX Active 06/13/[address] MORBID OBESITY Active 01/19/[address] Acid reflux Resolved Problem 04/05/2013 [facility] Anemia Resolved Problem 04/05/2013 [facility] Anxiety Resolved Problem 04/05/2013 [facility] Arthritis Resolved Problem 04/05/2013 [facility] Depression Resolved Problem 04/05/2013 [facility] Diabetes mellitus Resolved Problem 04/05/[address] Edema of lower Resolved Problem 04/05/2013 [facility] Fibromyalgia Resolved Problem 04/05/2013 [facility] Hyperlipidemia Resolved Problem 04/05/2013 [facility] Hypertension Resolved Problem 04/05/2013 [facility] Acid reflux Resolved Problem 08/15/2013 [facility] Anemia Resolved Problem 08/15/2013 [facility] Anxiety Resolved Problem 08/15/2013 [facility] Arthritis Resolved Problem 08/15/2013 [facility] Depression Resolved Problem 08/15/2013 [facility] Diabetes mellitus Resolved Problem 08/15/[address] Edema of lower Resolved Problem 08/15/2013 [facility] Fibromyalgia Resolved Problem 08/15/2013 [facility] Gastric ulcer Resolved Problem 08/15/2013 [facility] Hyperlipidemia Resolved Problem 08/15/2013 [facility] Hypertension Resolved Problem 08/15/2013 [facility] Neuropathy Resolved Problem 08/15/2013 [facility] Gastric ulcer Resolved Problem 04/05/2013 [facility] Neuropathy Resolved Problem 04/05/2013 [facility] CHEST PAIN NOS Active [facility] MORBID OBESITY Active [facility] NAUSEA WITH Active [facility] VOMITING [facility] OTHER GENERAL Active [facility] Medications Medication Details Route Status Patient Ordering Order Source Instructions Provider Date Zofran 4 mg 4 mg=1 tab, PO, Active De La Garza [facility] oral tablet BID, # 10 tab, 0 2012 Medical Refill(s) Center Reglan 10 mg 10 mg=1 tab, PO, Active [facility] 08/13[facility] oral tablet QID, # 40 tab, 0 2012 Medical Refill(s) Center IDS med 5 mg, 1 mL, Inactive Ruggiero [facility] Rate: 30 ml/hr, 2012 Medical Infuse [...] mg, 1 mL, Inactive De La Garza [facility] Route: IVPB, 2012 Medical Drug form: INJ, Center ONCE, Dosing Weight 81.818, kg, Priority: STAT, Start date: 08/13/13 13:17:00, Stop date: 08/13/13 13:17:00Do not give IV push. (Same as: Phenergan) Zofran 4 mg, 2 mL, Inactive De [facility] Gar[facility] Route: IVP, Drug 2012 Medical form: INJ, ONCE, Center Dosing Weight 81.818, kg, Priority: STAT, Start date: 08/13/13 12:41:00, Stop date: 08/13/13 12:41:00(Same as: Zofran) morphine 4 mg, 1 mL, Inactive De La Garza [facility] Sulfate Route: IVP, Drug 2012 Medical [...] 10 mg 10 mg, 1 tab, Inactive [facility] oral tablet Route: PO, Drug 2012 Medical form: TAB, Center TID-Before Meals, Dosing Weight 86.364, kg, Start date: 07/14/13 11:30:00, Duration: 30 day, Stop date: 08/13/13 7:30:00(Same as: Reglan) Take 30 min before meals Levemir 15 unit, 0.15 No Longer [facility] mL, Route: Active 2012 Medical SUB-Q, Drug Center form: INJ, BID, Dosing Weight 86.364, kg, Start date: 07/13/13 21:00:00, Duration: 30 day, Stop date: 08/12/13 9:00:00Same as Levemir "single patient use only" pneumococcal 0.5 ml, Route: No Longer SYSTEM 07/13[facility] 23-valent IM, Drug Form: Active 2012 Medical vaccine INJ, Start date: [place] 07/13/13 9:00:00, Stop date: 07/13/13 9:00:00 influenza virus 0.5 ml, Route: No Longer SYSTEM 07/13[facility] vaccine, IM, Drug Form: Active 2012 Medical inactivated SUSP, Start Center date: 07/13/13 9:00:00, Stop date: 07/13/13 9:00:00 lisinopril 20 mg, 1 tab, No Longer [facility] 07/13[facility] Route: PO, Drug Active 2012 Medical form: TAB, Center Daily, Dosing Weight 86.364, kg, Start date: 07/13/13 9:00:00, Duration: 30 day, Stop date: 08/11/13 9:00:00(Same as: Prinivil, Zestril) metoprolol 50 mg, Route: No Longer [facility] tartrate PO, Drug form: Active 2012 Medical TAB, Daily, Center Dosing Weight 86.364, kg, Start date: 07/13/13 9:00:00, Duration: 30 day, Stop date: 08/11/13 9:00:00 Lyrica 150 mg, 2 cap, No Longer [facility] Route: PO, Drug Active 2012 Medical form: CAP, BID, Center Dosing Weight 86.364, kg, Start date: 07/13/13 9:00:00, Duration: 30 day, Stop date: 08/11/13 17:00:00(Same as: Lyrica) potassium 20 mEq, 1 tab, No Longer [facility] chloride Route: PO, Drug Active 2012 Medical form: ERTAB, Center Daily, Dosing Weight 86.364, kg, Start date: 07/13/13 9:00:00, Duration: 30 day, Stop date: 08/11/13 9:00:00(Same as: K-Dur 20) "Do Not Crush" With food and full glass of water Effient 10 mg, 1 tab, No Longer [facility] Route: PO, Drug Active 2012 Medical form: TAB, Center Daily, Dosing Weight 86.364, kg, Start date: 07/13/13 9:00:00, Duration: 30 day, Stop date: 08/11/13 9:00:00Same as Effient For patients 60kg, without history of TIA/Ischemic stroke and without likely bypass surgery Protonix 40 mg, 1 tab, No Longer [facility] Route: PO, Drug Active 2012 Medical form: ECTAB, Center BID-Before Meals, Dosing Weight 86.364, kg, Start date: 07/13/13 9:00:00, Stop date: 08/11/13 16:30:00Tablet should not be chewed or crushed. (Same as: Protonix) meloxicam 7.5 mg, Route: No Longer [facility] [place] PO, Drug form: Active 2012 Medical TAB, BID, Dosing Center Weight 86.364, kg, Start date: 07/13/13 9:00:00, Duration: 30 day, Stop date: 08/11/13 17:00:00 magnesium oxide 400 mg, 1 tab, No Longer [facility] Route: PO, Drug Active 2012 Medical form: TAB, Center Daily, Dosing Weight 86.364, kg, Start date: 07/13/13 9:00:00, Duration: 30 day, Stop date: 08/11/13 9:00:00(Same as: Mag-Ox 400) Magnesium oxide [id number] elemental magnesium Dose=____mg magnesium oxide (___mg elemental magnesium) furosemide 40 40 mg, 1 tab, No Longer [facility] mg oral tablet Route: PO, Drug Active 2012 Medical form: TAB, Center Daily, Dosing Weight 86.364, kg, Start date: 07/13/13 9:00:00, Duration: 30 day, Stop date: 08/11/13 9:00:00(Same as: Lasix) May cause GI upset. Give with food or milk. ferrous sulfate 325 mg, 1 tab, No Longer [facility] Route: PO, Drug Active 2012 Medical form: ECTAB, Center TID, Dosing Weight 86.364, kg, Start date: 07/13/13 9:00:00, Duration: 30 day, Stop date: 08/11/13 17:00:00Give with food. "Do Not Crush" clonazepam 0.5 mg, 1 tab, No Longer [facility] Route: PO, Drug Active 2012 Medical form: TAB, TID, Center Dosing Weight 86.364, kg, Start date: 07/13/13 9:00:00, Duration: 30 day, Stop date: 08/11/13 17:00:00(Same As: Klonopin) Insulin regular 5 unit, 0.05 mL, No Longer [facility] Route: SUB-Q, Active 2012 Medical Drug [...] 10 mg, 2 mL, No Longer [facility] Route: IVP, Drug Active 2012 Medical form: INJ, Q6H, Center Dosing Weight 86.364, kg, Start date: 07/13/13 0:00:00, Duration: 30 day, Stop date: 08/11/13 18:00:00(Same as: Reglan) normal saline 1,000 mL, Rate: No Longer [facility] 0.9% IV 1,000 200 ml/hr, Active 2012 Medical mL Infuse over: 5 Center hr, Route: IV, Dosing Weight 86.364 kg, Total Volume: 1,000, Start date: 07/12/13 21:08:00, Duration: 3 doses or times, Stop date: 07/13/13 12:07:00 metoprolol 50 mg, 1 tab, No Longer [facility] tartrate Route: PO, Drug Active 2012 Medical form: TAB, Q12H, Center Dosing Weight 86.364, kg, Start date: 07/12/13 21:00:00, Duration: 30 day, Stop date: 08/11/13 9:00:00(Same as: Lopressor) Levemir 12 unit, 0.12 No Longer [facility] mL, Route: Active 2012 Medical SUB-Q, Drug Center form: INJ, BID, Dosing Weight 86.364, kg, Start date: 07/12/13 21:00:00, Duration: 30 day, Stop date: 08/11/13 9:00:00Same as Levemir "single patient use only" Cymbalta 120 mg, 2 cap, No Longer [facility] Route: PO, Drug Active 2012 Medical form: DR, [place] Bedtime, Dosing Weight 86.364, kg, Start date: 07/12/13 21:00:00, Duration: 30 day, Stop date: 08/10/13 21:00:00Non Formulary Drug (Same as: Cymbalta) (Do Not Crush) ProAir HFA 90 2 puff, Route: No Longer [facility] mcg/inh INHALATION, Drug Active 2012 Medical inhalation Form: AERO/A, Center aerosol with Dosing Weight adapter 86.364, kg, QID, PRN Shortness of breath, Start date: 07/12/13 20:09:00, Duration: 30 day, Stop date: 08/11/13 20:08:00Albutero l 90 microgram/inh 8gm HFA Same as: VentAlessio marrerotil aspirin 81 mg 81 mg, 1 tab, No Longer [facility] tablet, enteric Route: PO, Drug Active 2012 Medical coated form: ECTAB, [place] Daily, Dosing Weight 86.364, kg, Start date: 07/12/13 20:00:00, Duration: 30 day, Stop date: 08/11/13 9:00:00Do not crush or chew. (Same As: Ecotrin) glucagon 1 mg, Route: IM, No Longer [facility] Drug form: Active 2012 Medical PDR/INJ, PRN, Center Dosing Weight 86.364, kg, PRN Blood Glucose Results, Start date: 07/12/13 18:26:00, Duration: 30 day, Stop date: 08/11/13 18:25:00 Dextrose 50% 12.5 gm, 25 mL, No Longer [facility] Syringe Route: IVP, Drug Active 2012 Medical Form: INJ, Center Dosing Weight 86.364, kg, PRN, PRN Blood Glucose Results, Start date: 07/12/13 18:26:00, Duration: 30 day, Stop date: 08/11/13 18:25:00 insulin aspart 4 unit, 0.04 mL, No Longer [facility] Route: SUB-Q, Active 2012 Medical Drug form: SOLN, [place] TID-Before Meals, Dosing Weight 86.364, kg, PRN Blood Glucose Results, Start date: 07/12/13 18:26:00, Duration: 30 day, Stop date: 08/11/13 18:25:00Roll in palms of hands gently; Do not shake vigorously. (Same as: NovoLog) "single patient use only" Stable for 28 days at room temperature. Expires in days from Da te tramadol 50 mg 50 mg, 1 tab, No Longer [facility] oral tablet Route: PO, Drug Active 2012 Medical form: TAB, Q4H, Center Dosing Weight 86.364, kg, PRN as needed for pain, Start date: 07/12/13 18:24:00, Duration: 30 day, Stop date: 08/11/13 18:23:00Not to exceed 400mg/day. (Same As: Ultram) acetaminophen-h 1 tab, Route: No Longer [facility] ydrocodone 325 PO, Drug Form: Active 2012 Medical mg-5 mg oral TAB, Dosing Center tablet Weight 86.364, kg, Q4H, PRN Pain, Start date: 07/12/13 18:23:00, Duration: 30 day, Stop date: 08/11/13 18:22:00(Same as: [place] 325/5) Do not exceed 4gm/day of acetaminophen. Flexeril 10 mg, 1 tab, No Longer [facility] Route: PO, Drug Active 2012 Medical form: TAB, TID, Center Dosing Weight 86.364, kg, PRN Spasm, Start date: 07/12/13 18:23:00, Duration: 30 day, Stop date: 08/11/13 18:22:00(Same As: Flexeril) benzonatate 100 mg, 1 cap, No Longer [facility] Route: PO, Drug Active 2012 Medical form: CAP, TID, Center Dosing Weight 86.364, kg, PRN as needed for cough, Start date: 07/12/13 18:23:00, Duration: 30 day, Stop date: 08/11/13 18:22:00(Same As: Oleksandr Francis) "Do Not Crush" Saline Flush 5 ml, Route: No Longer [facility] 0.9% IVP, Drug Form: Active 2012 Medical INJ, Dosing Center Weight 86.364, kg, PRN, PRN Line Flush, Start date: 07/12/13 18:22:00, Duration: 30 day, Stop date: 08/11/13 18:21:00(Same as: BD Posiflush) ondansetron 4 mg, 2 mL, No Longer [facility] Route: IVP, Drug Active 2012 Medical form: INJ, Q8H, Center Dosing Weight 86.364, kg, PRN Nausea & Vomiting, Start date: 07/12/13 18:22:00, Duration: 30 day, Stop date: 08/11/13 18:21:00(Same as: Zofran) aspirin 81 mg 81 mg, 1 tab, Active [facility] tablet, enteric PO, Daily, 0 2012 Medical coated tab, Center Substitution Allowed, ECTAB Klor-Con M20 20 mEq, 1 tab, No Longer [facility] oral tablet, PO, Daily, 180 Active 2012 Medical extended tab, Center release Substitution Allowed, ERTAB furosemide 40 40 mg, 1 tab, No Longer [facility] mg oral tablet PO, Daily, 30 Active 2012 Medical tab, Center Substitution Allowed, TAB benzonatate 100 PO, TID, PRN, 1 Active [facility] mg oral capsule to 2 tabs, prn, 2012 Medical Substitution Center Allowed1 to 2 tabs metoprolol 50 mg, 1 tab, No Longer [facility] tartrate 50 mg PO, Daily, 180 Active 2012 Medical oral tablet tab, Center Substitution Allowed, TAB Reglan 10 mg, 2 mL, Inactive [facility] 07/12[facility] Route: IVP, Drug 2012 Medical form: INJ, ONCE, Center Dosing Weight 86.364, kg, Priority: STAT, Start date: 07/12/13 12:12:00, Stop date: 07/12/13 12:12:00(Same as: Reglan) Zofran 4 mg, Route: Inactive [facility] 07/12[facility] IVP, Drug form: 2012 Medical INJ, ONCE, Center Dosing Weight 86.364, kg, Priority: STAT, Start date: 07/12/13 10:52:00, Stop date: 07/12/13 10:52:00 morphine 4 mg, Route: Inactive [facility] 07/12[facility] Sulfate IVP, Drug form: 2012 Medical INJ, ONCE, Center Dosing Weight 86.364, kg, Priority: STAT, Start date: 07/12/13 10:51:00, Stop date: 07/12/13 10:51:00 Zofran 4 mg, 2 mL, Inactive [facility] 07/12[facility] Route: IVP, Drug 2012 Medical form: [...] Stop date: 07/12/13 11:05:00, Bolus DoseBolus Dose [place] 5/325 1 tab, Route: Inactive [facility] [...] Levemir 10 unit, 0.1 mL, Inactive [facility] 07/12[facility] Fei Route: SUB-Q, 2012 Medical Drug form: INJ, Center ONCE, Dosing Weight 86.364, kg, Start date: 07/12/13 4:20:00, Stop date: 07/12/13 4:20:00Same as Levemir "single patient use only" Omnipaque 100 mL, Route: Inactive [facility] 350mg/ml IVP, Drug Form: 2012 Medical SOLN, Dosing Center Weight 86.364, kg, ONCALL, STAT, Start date: 07/12/13 4:18:00, Duration: 1 doses or times, Dose=2.2ml/kg, Max [id number] -- "To be infused by Radiology Staff ONLY"Dose=2.2ml/ kg, Max [id number] -- "To be infused by Radiology Staff [...] mg, 1 tab, PO No Longer [facility] Route: PO, Drug Active 2012 Medical form: TAB, Center Daily, Dosing Weight 90, kg, Start date: 04/03/13 9:00:00, Duration: 30 day, Stop date: 05/02/13 9:00:00 Lyrica 150 mg, 2 cap, PO No Longer [facility] Route: PO, Drug Active 2012 Medical form: CAP, BID, Center Dosing Weight 90, kg, Start date: 04/03/13 9:00:00, Duration: 30 day, Stop date: 05/02/13 17:00:00 Protonix 40 mg, 1 tab, PO No Longer [facility] Route: PO, Drug Active 2012 Medical form: ECTAB, Center BID, Dosing Weight 90, kg, Start date: 04/03/13 9:00:00, Duration: 30 day, Stop date: 05/02/13 17:00:00 metoclopramide 10 mg, 1 tab, PO No Longer [facility] 10 mg oral Route: PO, Drug Active 2012 Medical tablet form: TAB, TID, Center Dosing Weight 90, kg, Start date: 04/03/13 9:00:00, Duration: 30 day, Stop date: 05/02/13 17:00:00 meloxicam 7.5 mg, 1 tab, PO No Longer [facility] Route: PO, Drug Active 2012 Medical form: TAB, BID, Center Dosing Weight 90, kg, Priority: Routine, Start date: 04/03/13 9:00:00, Duration: 30 day, Stop date: 05/02/13 17:00:00 lisinopril 20 mg, Route: PO No Longer [facility] PO, Drug form: Active 2012 Medical [...] unit, 0.06 mL, SUB-Q No Longer [facility] Route: SUB-Q, Active 2012 Medical Drug [...] mg, 1 cap, PO No Longer [facility] Route: PO, Drug Active 2012 Medical form: DRC, Center Bedtime, Dosing Weight 90, kg, Start date: 04/02/13 21:00:00, Duration: 30 day, Stop date: 05/01/13 21:00:00 magnesium oxide 400 mg, 1 tab, PO No Longer [facility] Route: PO, Drug Active 2012 Medical form: TAB, Center Daily, Dosing Weight 90, kg, Priority: NOW, Start date: 04/02/13 20:45:00, Duration: 30 day, Stop date: 05/02/13 9:00:00 Levemir 12 unit, 0.12 SUB-Q No Longer [facility] mL, Route: Active 2012 Medical SUB-Q, Drug Center form: INJ, BID, Dosing Weight 90, kg, Start date: 04/02/13 20:45:00, Duration: 30 day, Stop date: 05/02/13 17:00:00 hydrALAZINE 10 mg, 0.5 mL, IVP No Longer [facility] Route: IVP, Drug Active 2012 Medical form: INJ, Q4H, Center Dosing Weight 90, kg, PRN Hypertension, Start date: 04/02/13 20:37:00, Duration: 30 day, Stop date: 05/02/13 20:36:00 lisinopril 20 mg, 1 tab, PO No Longer [facility] Route: PO, Drug Active 2012 Medical form: TAB, Center Daily, Dosing Weight 90, kg, Start date: 04/02/13 20:30:00, Duration: 30 day, Stop date: 05/02/13 9:00:00 metoprolol 12.5 mg, 1 ea, PO No Longer [facility] tartrate Route: PO, Drug Active 2012 Medical form: TAB, BID, Center Dosing Weight 90, kg, Start date: 04/02/13 20:30:00, Duration: 30 day, Stop date: 05/02/13 17:00:00 insulin aspart 8 unit, 0.08 mL, SUB-Q No Longer [facility] Route: SUB-Q, Active 2012 Medical Drug form: SOLN, Center TID-Before Meals, Dosing Weight 90, kg, PRN Blood Glucose Results, Start date: 04/02/13 20:30:00, Duration: 30 day, Stop date: 05/02/13 20:29:00 glucagon 1 mg, Route: IM, IM No Longer [facility] Drug form: Active 2012 Medical PDR/INJ, PRN, Center Dosing Weight 90, kg, PRN Blood Glucose Results, Start date: 04/02/13 20:30:00, Duration: 30 day, Stop date: 05/02/13 20:29:00 Dextrose 50% 25 gm, 50 mL, IVP No Longer [facility] Syringe Route: IVP, Drug Active 2012 Medical Form: INJ, Center Dosing Weight 90, kg, PRN, PRN Blood Glucose Results, Start date: 04/02/13 20:30:00, Duration: 30 day, Stop date: 05/02/13 20:29:00 Insulin regular 8 unit, Route: SUB-Q No Longer [facility] SUB-Q, Active 2012 Medical TID-Before Center Meals, Dosing Weight 90, kg, PRN Blood Glucose Results, Start date: 04/02/13 20:29:00, Duration: 30 day, Stop date: 05/02/13 20:28:00 glucagon 1 mg, Route: IM, IM No Longer [facility] PRN, Dosing Active 2012 Medical Weight 90, kg, Center PRN Blood Glucose Results, Start date: 04/02/13 20:29:00, Duration: 30 day, Stop date: 05/02/13 20:28:00 Dextrose 50% 50 mL, Route: IVP No Longer [facility] Syringe IVP, Dosing Active 2012 Medical Weight 90, kg, Center PRN, PRN Blood Glucose Results, Start date: 04/02/13 20:29:00, Duration: 30 day, Stop date: 05/02/13 20:28:00 Zofran 4 mg, 2 mL, IV No Longer [facility] Route: IV, Drug Active 2012 Medical form: INJ, Q8H, Center Dosing Weight 90, kg, PRN Nausea, Start date: 04/02/13 20:29:00, Duration: 30 day, Stop date: 05/02/13 20:28:00 Maalox Advanced 30 mL, Route: PO No Longer [facility] Regular PO, Drug Form: Active 2012 Medical Strength SUSP SUSP, Dosing Center Weight 90, kg, QID, PRN Indigestion, Start date: 04/02/13 20:28:00, Duration: 30 day, Stop date: 05/02/13 20:27:00 Flexeril 10 mg, 1 tab, PO No Longer [facility] Route: PO, Drug Active 2012 Medical form: TAB, TID, Center Dosing Weight 90, kg, PRN Spasm, Start date: 04/02/13 20:22:00, Duration: 30 day, Stop date: 05/02/13 20:21:00 acetaminophen-h 1 tab, Route: PO No Longer [facility] ydrocodone 325 PO, Drug Form: Active 2012 Medical mg-5 mg oral TAB, Dosing Center tablet Weight 90, kg, Q4H, PRN Pain, Start date: 04/02/13 20:22:00, Duration: 30 day, Stop date: 05/02/13 20:21:00 Phenergan 12.5 mg, 0.5 mL, IVPB No Longer [facility] Route: IVPB, Active 2012 Medical Drug form: INJ, Center ONCE, Dosing Weight 90, kg, Start date: 04/02/13 20:11:00, Stop date: 04/02/13 20:11:00 morphine 4 mg, 1 mL, IVP No Longer [facility] Sulfate Route: IVP, Drug Active 2012 Medical form: INJ, ONCE, Center Dosing Weight 90, kg, Start date: 04/02/13 20:10:00, Stop date: 04/02/13 20:10:00 Phenergan 12.5 mg, 0.5 mL, IVPB No Longer [facility] Route: IVPB, Active 2012 Medical Drug form: INJ, Center ONCE, Dosing Weight 90, kg, Priority: STAT, Start date: 04/02/13 17:11:00, Stop date: 04/02/13 17:11:00 Zofran 4 mg, 2 mL, IVP No Longer [facility] Route: IVP, Drug Active 2012 Medical form: INJ, ONCE, Center Dosing Weight 90, kg, Priority: STAT, Start date: 04/02/13 16:52:00, Stop date: 04/02/13 16:52:00 nitroglycerin 0.4 mg, 1 tab, SL No Longer [facility] Route: SL, Drug Active 2012 Medical form: TAB, Center Q5Min, Dosing Weight 90, kg, PRN Chest Pain, Priority: STAT, Start date: 04/02/13 16:31:00, Duration: 3 doses or times, Stop date: Limited # of times aspirin 325 mg, 1 tab, PO No Longer [facility] Route: PO, Drug Active 2012 Medical form: ECTAB, Center ONCE, Dosing Weight 90, kg, Priority: STAT, Start date: 04/02/13 16:31:00, Stop date: 04/02/13 16:31:00 morphine 4 mg, 1 mL, IVP No Longer [facility] Sulfate Route: IVP, Drug Active 2012 Medical form: INJ, ONCE, Center Dosing Weight 90, kg, Start date: 04/02/13 16:30:00, Stop date: 04/02/13 16:30:00 erythromycin 1 cap, PO, Q12H, PO Active [facility] [place] 250 mg oral 14 cap, 2012 Medical enteric coated Substitution Center tablet Allowed, ECTAB GI cocktail 30 ml, Route: PO No Longer [facility] PO, Drug Form: Active 2012 Medical [...] gm, 50 mL, IVPB No Longer [facility] sulfate Route: IVPB, Active 2012 Medical Drug form: INJ, Center Q2H, Dosing Weight 90, kg, Total Dose=4 gm, Start date: 03/08/13 12:00:00, Duration: 2 doses or times, Stop date: 03/08/13 14:00:00, For Mg=1.5 - 1.7 mg/dLFor Mg=1.5 - 1.7 mg/dL insulin aspart 5 unit, 0.05 mL, SUB-Q No Longer [place] [facility] Route: SUB-Q, Active 2012 Medical Drug form: SOLN, [place] ONCE, Dosing Weight 90, kg, Start date: 03/08/13 3:17:00, Stop date: 03/08/13 3:17:00 Zocor 40 mg, 1 tab, PO No Longer [facility] Route: PO, Drug Active 2012 Medical form: TAB, Center Bedtime, Dosing Weight 90, kg, Start date: 03/07/13 21:00:00, Duration: 30 day, Stop date: 04/05/13 21:00:00 Cymbalta 120 mg, 2 cap, PO No Longer [facility] Route: PO, Drug 2012 Medical form: [...] unit, 0.1 mL, SUB-Q No Longer [facility] Route: SUB-Q, Active 2012 Medical Drug form: SOLN, Center ONCE, Dosing Weight 90, kg, Start date: 03/07/13 19:16:00, Stop date: 03/07/13 19:16:00 Lyrica 150 mg, 2 cap, PO No Longer [facility] Route: PO, Drug Active 2012 Medical form: CAP, BID, Center Dosing Weight 90, kg, Start date: 03/07/13 17:00:00, Duration: 30 day, Stop date: 04/06/13 9:00:00 Protonix 40 mg, 1 tab, PO No Longer [facility] Route: PO, Drug Active 2012 Medical form: ECTAB, Center BID, Dosing Weight 90, kg, Start date: 03/07/13 17:00:00, Duration: 30 day, Stop date: 04/06/13 9:00:00 meloxicam 7.5 mg, 1 tab, PO No Longer [facility] Route: PO, Drug Active 2012 Medical form: TAB, Center BID-Meals, Dosing Weight 90, kg, Start date: 03/07/13 17:00:00, Duration: 30 day, Stop date: 04/06/13 8:00:00 Flexeril 10 mg, 1 tab, PO No Longer [facility] Route: PO, Drug Active 2012 Medical form: TAB, BID, Center Dosing Weight 90, kg, Start date: 03/07/13 17:00:00, Duration: 30 day, Stop date: 04/06/13 9:00:00 NovoLog FlexPen 6 unit, 0.06 mL, SUB-Q No Longer [facility] Route: SUB-Q, Active 2012 Medical Drug [...] mg, 1 tab, PO No Longer [facility] Route: PO, Drug Active 2012 Medical form: TAB, Center Daily, Dosing Weight 90, kg, Start date: 03/07/13 13:30:00, Duration: 30 day, Stop date: 04/06/13 9:00:00 magnesium oxide 400 mg, 1 tab, PO No Longer [facility] Route: PO, Drug Active 2012 Medical form: TAB, Center Daily, Dosing Weight 90, kg, Start date: 03/07/13 13:30:00, Duration: 30 day, Stop date: 04/06/13 9:00:00 lisinopril 20 mg, 1 tab, PO No Longer [facility] Route: PO, Drug Active 2012 Medical form: TAB, Center Daily, Dosing Weight 90, kg, Start date: 03/07/13 13:30:00, Duration: 30 day, Stop date: 04/06/13 9:00:00 Reglan 5 mg, 1 tab, PO No Longer [facility] Route: PO, Drug Active 2012 Medical form: TAB, TID, Center Dosing Weight 90, kg, Start date: 03/07/13 13:00:00, Duration: 30 day, Stop date: 04/06/13 9:00:00 ferrous sulfate 325 mg, 1 tab, PO No Longer [facility] Route: PO, Drug Active 2012 Medical form: ECTAB, Center TID, Dosing Weight 90, kg, Start date: 03/07/13 13:00:00, Duration: 30 day, Stop date: 04/06/13 9:00:00 clonazepam 0.5 mg, 1 tab, PO No Longer [facility] Route: PO, Drug Active 2012 Medical form: TAB, TID, Center Dosing Weight 90, kg, Start date: 03/07/13 13:00:00, Duration: 30 day, Stop date: 04/06/13 9:00:00 NovoLog 6 unit, SUB-Q, SUB-Q No Longer [place] TID-Before Active 2012 Medical Meals, Center Substitution Allowed Levemir 12 unit, SUB-Q, SUB-Q Active [place] BID, 2012 Medical Substitution Center Allowed NS 1,000 mL 1,000 mL, Rate: IV No Longer [facility] [place] 125 ml/hr, Active 2012 Medical Infuse over: 8 Center hr, Route: IV, Dosing Weight 90 kg, Total Volume: 1,000, Start date: 03/07/13 12:19:00, Duration: 30 day, Stop date: 04/06/13 12:18:00 insulin aspart 2 unit, 0.02 mL, SUB-Q No Longer [facility] [place] Route: SUB-Q, Active 2012 Medical Drug form: [facility] TID-Before Meals, Dosing Weight 90, kg, PRN Blood Glucose Results, Start date: 03/07/13 11:55:00, Duration: 30 day, Stop date: 04/06/13 11:54:00 glucagon 1 mg, Route: IM, IM No Longer [facility] [place] Drug form: Active 2012 Medical PDR/INJ, PRN, Center Dosing Weight 90, kg, PRN Blood Glucose Results, Start date: 03/07/13 11:55:00, Duration: 30 day, Stop date: 04/06/13 11:54:00 Dextrose 50% 12.5 gm, 25 mL, IVP No Longer [facility] [place] Syringe Route: IVP, Drug Active 2012 Medical Form: INJ, Center Dosing Weight 90, kg, PRN, PRN Blood Glucose Results, Start date: 03/07/13 11:55:00, Duration: 30 day, Stop date: 04/06/13 11:54:00 Phenergan 12.5 mg, 0.5 mL, IVPB No Longer [facility] [place] Route: IVPB, Active 2012 Medical Drug form: INJ, Center Q4H, Dosing Weight 90, kg, PRN Nausea & Vomiting, Start date: 03/07/13 11:53:00, Duration: 30 day, Stop date: 04/06/13 11:52:00 albuterol 2.49 mg, 3 mL, NEB No Longer [facility] [place] 0.083% Route: NEB, Drug Active 2012 Medical inhalation form: SOLN, Center solution RQ4H, Dosing Weight 90, kg, PRN as needed for wheezing, Start date: 03/07/13 11:53:00, Duration: 30 day, Stop date: 04/06/13 11:52:00 Zofran 4 mg, 2 mL, IVP No Longer [facility] Route: IVP, Drug Active 2012 Medical form: INJ, Q4H, Center Dosing Weight 90, kg, PRN Nausea, Start date: 03/07/13 11:53:00, Duration: 30 day, Stop date: 04/06/13 11:52:00 acetaminophen-h 1 tab, Route: PO No Longer [facility] ydrocodone 325 PO, Drug Form: Active 2013 Medical mg-10 mg oral TAB, Dosing Center tablet Weight 90, kg, Q4H, PRN Pain Score 4-6, Start date: 03/07/13 11:51:00, Duration: 30 day, Stop date: 04/06/13 11:50:00 acetaminophen-h 1 tab, Route: PO No Longer [facility] ydrocodone 325 PO, Drug Form: Active 2013 Medical mg-5 mg oral TAB, Dosing Center tablet Weight 90, kg, Q4H, PRN Pain Score 1-3, Start date: 03/07/13 11:51:00, Duration: 30 day, Stop date: 04/06/13 11:50:00 acetaminophen 650 mg, 2 tab, PO No Longer [facility] Route: PO, Drug Active 2012 Medical form: TAB, Q4H, Center Dosing Weight 90, kg, PRN Pain 1-3/Temp > 100.4 F, Start date: 03/07/13 11:51:00, Duration: 30 day, Stop date: 04/06/13 11:50:00 morphine 2 mg, 1 mL, IVP No Longer [facility] 03/07[facility] Sulfate Route: IVP, Drug Active 2012 Medical form: INJ, Q4H, Center Dosing Weight 90, kg, PRN Pain Score 7-10, Start date: 03/07/13 11:51:00, Duration: 30 day, Stop date: 04/06/13 11:50:00 docusate 100 mg, 1 cap, PO No Longer [facility] 07/02[facility] Route: PO, Drug Active 2012 Medical form: CAP, BID, Center Dosing Weight 90, kg, PRN Constipation, Start date: 03/07/13 11:51:00, Duration: 30 day, Stop date: 04/06/13 11:50:00 Levemir 12 unit, 0.12 SUB-Q No Longer [facility] mL, Route: Active 2012 Medical SUB-Q, Drug Center form: INJ, ONCE, Dosing Weight 90, kg, Start date: 03/07/13 6:10:00, Stop date: 03/07/13 6:10:00 lidocaine-epi 1 ml, Route: SUB-Q No Longer [facility] [id number] SUB-Q, Drug Active 2012 Medical Form: SOLN, Center Dosing Weight 90, kg, ONCE, STAT, Start date: 03/07/13 5:18:00, Stop date: 03/07/13 5:18:00 Insulin regular 99 mL, Rate: IVPB No Longer [facility] 100 unit + Start Insulin Active [...] gm, 25 mL, IVP No Longer [facility] Syringe Route: IVP, Drug Active 2012 Medical Form: INJ, Center Dosing Weight 90, kg, PRN, PRN Blood Glucose Results, Start date: 03/07/13 5:13:00, Duration: 30 day, Stop date: 04/06/13 5:12:00 NS (Bolus) IV 1,000 mL, Rate: IV No Longer [facility] 1,000 mL 1,000 ml/hr, Active 2012 Medical Infuse over: 1 Center hr, Route: IV, Dosing Weight 90 kg, Total Volume: 1,000, Priority: STAT, Start date: 03/07/13 2:36:00, Duration: 1 doses or times, Stop date: 03/07/13 3:35:00, Bolus DoseBolus Dose magnesium 2 gm, 50 mL, IVPB No Longer [facility] [place] sulfate Route: IVPB, 2012 Medical Drug form: INJ, Center ONCE, Dosing Weight 90, kg, Start date: 03/07/13 2:35:00, Stop date: 03/07/13 2:35:00 Insulin regular 10 unit, 0.1 mL, SUB-Q No Longer [facility] [place] Route: SUB-Q, 2012 Medical Drug form: SOLN, Center ONCE, Dosing Weight 90, kg, Priority: STAT, Start date: 03/07/13 2:16:00, Stop date: 03/07/13 2:16:00 Reglan 10 mg, 2 mL, IVP No Longer [facility] [place] Route: IVP, Drug 2012 Medical form: INJ, ONCE, Center Dosing Weight 90, kg, Priority: STAT, Start date: 03/07/13 2:16:00, Stop date: 03/07/13 2:16:00 NS 1,000 mL 1,000 mL, Rate: IV No Longer [facility] [place] 150 ml/hr, 2012 Medical Infuse over: 6.7 Center hr, Route: IV, Dosing Weight 90 kg, Total Volume: 1,000, Start date: 03/07/13 2:15:00, Duration: 30 day, Stop date: 04/06/13 2:14:00 droperidol 1.25 mg, Route: IVP No Longer [facility] IVP, ONCE, 2012 Medical Dosing Weight Center 90, kg, PRN Nausea & Vomiting, Start date: 03/07/13 0:48:00 D5W 1/2NS 1,000 1,000 mL, Rate: IV No Longer [facility] [place] mL 125 ml/hr, 2012 Medical Infuse over: 8 Center hr, Route: IV, Dosing Weight 90 kg, Total Volume: 1,000, Start date: 03/07/13 0:43:00, Duration: 30 day, Stop date: 04/06/13 0:42:00 Insulin regular 4 unit, 0.04 mL, SUB-Q No Longer [facility] [place] Route: SUB-Q, Active 2012 Medical Drug form: SOLN, Center Sliding Scale, Dosing Weight 90, kg, PRN Blood Glucose Results, Start date: 03/07/13 0:01:00, Duration: 30 day, Stop date: 04/06/13 0:00:00 glucagon 1 mg, Route: IM, IM No Longer [facility] [place] Drug form: Active 2012 Medical PDR/INJ, PRN, Center Dosing Weight 90, kg, PRN Blood Glucose Results, Start date: 03/07/13 0:01:00, Duration: 30 day, Stop date: 04/06/13 0:00:00 Dextrose 50% 25 gm, 50 mL, IVP No Longer [facility] [place] Syringe Route: IVP, Drug Active 2012 Medical Form: INJ, Center Dosing Weight 90, kg, PRN, PRN Blood Glucose Results, Start date: 03/07/13 0:01:00, Duration: 30 day, Stop date: 04/06/13 0:00:00 NS 1,000 mL 1,000 mL, Rate: IV No Longer [facility] [place] 125 ml/hr, 2012 Medical Infuse over: 8 Center hr, Route: IV, Dosing Weight 90 kg, Total Volume: 1,000, Start date: 03/06/13 23:21:00, Duration: 30 day, Stop date: 04/05/13 23:20:00 NS (Bolus) IV 1,000 mL, Rate: IV No Longer [facility] [place] 1,000 mL 1,000 ml/hr, 2012 Medical Infuse over: 1 Center hr, Route: IV, Dosing Weight 90 kg, Total Volume: 1,000, Priority: STAT, Start date: 03/06/13 23:21:00, Duration: 1 doses or times, Stop date: 03/07/13 0:20:00, Bolus DoseBolus Dose [place] 5/325 1 tab, PO, Q6H, PO No Longer [place] oral tablet PRN, 30 tab, Active 2012 Medical Substitution Center Allowed, Maintenance ferrous sulfate 325 mg, 1 tab, PO Active [facility] 325 mg oral PO, TID, 30 tab, 2012 Medical enteric coated Substitution Center tablet Allowed, ECTAB acetaminophen-h 1 tab, PO, Q4H, PO Active [facility] ydrocodone 500 PRN, for pain, 2012 Medical mg-7.5 mg oral Substitution Center tablet Allowed, Maintenance, TAB meloxicam 7.5 7.5 mg, 1 tab, PO Active [place] 03/07[facility] mg oral tablet PO, BID, WITH 2012 Medical FOOD, 30 tab, Center Substitution Allowed, TABWITH FOOD Zocor 40 mg 40 mg, 1 tab, PO Active [place] 03/07[facility] oral tablet PO, Bedtime, 30 2012 Medical tab, Center Substitution Allowed, Maintenance ProAir HFA 90 Substitution Active [facility] mcg/inh Allowed, 2012 Medical inhalation Maintenance Center aerosol with adapter Flexeril 10 mg 10 mg, 1 tab, PO Active [place] [facility] oral tablet PO, TID, PRN, 30 2012 Medical tab, for spasm, Center Substitution Allowed, TAB Protonix 40 mg 40 mg, 1 tab, PO Active [place] [facility] oral enteric PO, BID, 30 tab, 2012 Medical coated tablet Substitution Center Allowed, ECTAB Lyrica 150 mg 150 mg, 1 cap, PO Active [place] [facility] oral capsule PO, BID, 90 cap, 2012 [facility] Substitution [place] Allowed, CAP Flagyl 500 mg 500 mg, 1 tab, PO No Longer [facility] oral tablet PO, Q6H, 30 tab, Active 2012 [facility] Substitution [place] Allowed metoclopramide 10 mg, 1 tab, PO Active [place] [facility] 10 mg oral PO, TID, 56 [...] mg, 1 mL, IVP No Longer [facility] Sulfate Route: IVP, Drug Active 2012 Medical form: INJ, ONCE, Center Dosing Weight 90, kg, Start date: 03/06/13 21:27:00, Stop date: 03/06/13 21:27:00 Phenergan 12.5 mg, 0.5 mL, IVPB No Longer [facility] Route: IVPB, Active 2012 Medical Drug form: INJ, Center ONCE, Dosing Weight 90, kg, Priority: STAT, Start date: 03/06/13 21:26:00, Stop date: 03/06/13 21:26:00 ergocalciferol 50,000 IntlUnit, PO No Longer [facility] 1 cap, Route: Active 2012 Medical PO, Drug form: Center CAP, qWeek, Dosing Weight 100, kg, Start date: 12/07/12 9:00:00, Duration: 30 day, Stop date: 01/04/13 9:00:00 erythromycin 250 mg, 1 tab, PO Active [facility] stearate 250 mg PO, Q6H, 56 tab, 2012 Medical oral tablet Substitution Center Allowed, TAB Protonix 40 mg 40 mg, 1 tab, PO Active [facility] oral enteric PO, Daily, 2012 Medical coated tablet tab, Center Substitution Allowed, ECTAB pravastatin 80 80 mg, 1 tab, PO Active [facility] mg oral tablet PO, Daily, 30 2012 Medical tab, Center Substitution Allowed, TAB insulin detemir 14 unit, 0.14 SUB-Q Active [facility] 100 units/mL mL, SUB-Q, 2012 Medical subcutaneous Bedtime, 100 mL, Center solution Substitution Allowed, INJ insulin detemir 16 unit, 0.16 SUB-Q Active [facility] 100 units/mL mL, SUB-Q, 2012 Medical subcutaneous Daily, 100 mL, Center solution Substitution Allowed, INJ Protonix 40 mg, Route: IVP No Longer [facility] IVP, Drug form: Active 2012 Medical INJ, Daily, Center Dosing Weight 100, kg, Priority: NOW, Start date: 12/06/12 16:52:00, Duration: 30 day, Stop date: 01/05/13 9:00:00 insulin detemir 16 unit, 0.16 SUB-Q No Longer [place] [facility] mL, Route: Active 2012 Medical SUB-Q, Drug Center form: INJ, Daily, Dosing Weight 100, kg, Start date: 12/06/12 9:00:00, Stop date: 01/04/13 9:00:00 [place] 7.5/325 1 tab, Route: PO No Longer [place] oral tablet PO, Drug Form: Active 2012 Medical TAB, Dosing Center Weight 100, kg, ONCE, Start date: 12/06/12 0:19:00, Stop date: 12/06/12 0:19:00 Pravachol 80 mg, 4 tab, PO No Longer [facility] Route: PO, Drug Active 2012 Medical form: TAB, Center Bedtime, Start date: 12/05/12 21:00:00, Duration: 30 day, Stop date: 01/03/13 21:00:00 insulin detemir 14 unit, 0.14 SUB-Q No Longer [place] [facility] mL, Route: Active 2012 Medical SUB-Q, Drug Center form: INJ, Bedtime, Dosing Weight 100, kg, Start date: 12/05/12 21:00:00, Stop date: 01/03/13 21:00:00 morphine 4 mg, 1 mL, IVP No Longer [facility] Sulfate Route: IVP, Drug Active 2012 Medical form: INJ, ONCE, Center Dosing Weight 100, kg, Start date: 12/05/12 16:51:00, Stop date: 12/05/12 16:51:00 erythromycin + 250 mg, Route: IVPB No Longer [facility] Sodium Chloride IVPB, Q8H, Active 2012 Medical 0.9% IV 100 mL Dosing Weight Center 100, kg, Start date: 12/05/12 16:00:00, Duration: 30 day, Stop date: 01/04/13 8:00:00 potassium 20 mEq, 100 mL, IVPB No Longer [facility] chloride Route: IVPB, Active 2012 Medical [...] mg, 1 tab, PO No Longer [facility] [place] Route: PO, Drug Active 2012 Medical form: [...] gm, 50 mL, IVP No Longer [facility] Syringe Route: IVP, Drug Active 2012 Medical Form: INJ, Center Dosing Weight 100, kg, PRN, PRN Blood Glucose Results, Start date: 12/04/12 7:48:00, Duration: 30 day, Stop date: 01/03/13 7:47:00 glucagon 1 mg, Route: IM, IM No Longer [facility] [place] Drug form: Active 2012 Medical PDR/INJ, PRN, Center Dosing Weight 100, kg, PRN Blood Glucose Results, Start date: 12/04/12 7:48:00, Duration: 30 day, Stop date: 01/03/13 7:47:00 insulin aspart 4 unit, 0.04 mL, SUB-Q No Longer [facility] [place] Route: SUB-Q, Active 2012 Medical Drug form: SOLN, Center Bedtime, Dosing Weight 100, kg, PRN Blood Glucose Results, Start date: 12/04/12 7:48:00, Duration: 30 day, Stop date: 01/03/13 7:47:00 Protonix 40 mg, Route: IV No Longer [place] IV, Drug form: Active 2012 Medical INJ, ONCE, Center Dosing Weight 100, kg, Start date: 12/04/12 3:12:00, Stop date: 12/04/12 3:12:00 potassium 20 mEq, 100 mL, IVPB No Longer [facility] chloride Route: IVPB, Active 2012 Medical Q2H, Start date: [place] 12/03/12 8:00:00, Stop date: 12/03/12 11:00:00 potassium 40 mEq, Route: IV No Longer [facility] chloride IV, ONCE, Dosing Active 2012 Medical Weight 100, kg, Center Start date: 12/03/12 7:02:00, Stop date: 12/03/12 7:02:00 NS 1,000 mL 1,000 mL, Rate: IV No Longer [facility] 125 ml/hr, Active 2012 Medical Infuse over: 8 Center hr, Route: IV, kg, Total Volume: 1,000, Start date: 12/02/12 16:54:00, Duration: 30 day, Stop date: 01/01/13 16:53:00 NS (Bolus) IV 1,000 mL, Rate: IV No Longer [facility] [place] 1,000 mL 1,000 ml/hr, Active 2012 Medical Infuse over: 1 Center hr, Route: IV, kg, Total Volume: 1,000, Priority: STAT, Start date: 12/02/12 13:12:00, Duration: 1 doses or times, Stop date: 12/02/12 14:11:00, Bolus DoseBolus Dose NS (Bolus) IV 1,000 mL, Rate: IV No Longer [facility] 1,000 mL 1,000 ml/hr, Active 2012 Medical Infuse over: 1 Center hr, Route: IV, kg, Total Volume: 1,000, Priority: STAT, Start date: 12/02/12 12:10:00, Duration: 1 doses or times, Stop date: 12/02/12 13:09:00, Bolus DoseBolus Dose insulin detemir 20 unit, 0.2 mL, SUB-Q No Longer [place] Route: SUB-Q, Active 2012 Medical Drug form: INJ, Center BID, Dosing Weight 100, kg, Start date: 12/02/12 9:00:00, Duration: 30 day, Stop date: 12/31/12 21:00:00 calcium 1,000 mg, 10 mL, IVPB No Longer [place] chloride + Route: IVPB, Active 2012 Medical Sodium Chloride ONCE, Start Center 0.9% IV 100 mL date: 12/02/12 5:08:00, Stop date: 12/02/12 5:08:00 ceftriaxone 1 gm, Route: IVPB No Longer [facility] IVPB, Drug form: Active 2012 Medical PDR/INJ, Center [id number], Dosing Weight 100, kg, Start date: 12/02/12 5:00:00, Duration: 30 day, Stop date: 12/31/12 5:00:00 calcium 1,000 mg, Route: IVPB No Longer [place] [facility] gluconate IVPB, Drug form: Active 2012 Medical INJ, ONCE, Center Dosing Weight 100, kg, Start date: 12/02/12 5:00:00, Stop date: 12/02/12 5:00:00 Dextrose 50% 25 mL, Route: IVP No Longer [place] [facility] Syringe IVP, Dosing Active 2012 Medical Weight 100, kg, Center PRN, PRN Blood Glucose Results, Start date: 12/02/12 4:51:00, Duration: 30 day, Stop date: 01/01/13 4:50:00 Insulin regular 100 mL, Rate: IVPB No Longer [facility] [facility] 100 unit + Start Insulin Active [...] 4 mg, Route: IVP No Longer [facility] [facility] IVP, Drug form: Active 2012 Medical INJ, ONCE, Center Dosing Weight 100, kg, Priority: STAT, Start date: 12/02/12 4:47:00, Stop date: 12/02/12 4:47:00 normal saline 1,000 mL, Rate: IV No Longer [place] 0.9% IV 1,000 1,000 ml/hr, Active 2012 Medical mL Infuse over: 1 Center hr, Route: IV, kg, Total Volume: 1,000, Start date: 12/02/12 3:19:00, Duration: 1 doses or times, Stop date: 12/02/12 4:18:00 Insulin regular 6 unit, 0.06 mL, IV No Longer [place] [facility] Route: IV, Drug Active 2012 Medical form: [place] ONCE, Dosing Weight 100, kg, Priority: STAT, Start date: 12/02/12 3:19:00, Stop date: 12/02/12 3:19:00 insulin aspart 3 unit, 0.03 mL, SUB-Q No Longer [facility] Route: SUB-Q, Active 2012 Medical Drug form: SOLN, [place] Bedtime, Dosing Weight 100, kg, PRN Blood [...] Route: SUB-Q, Active 2012 Medical [facility]: [facility] [place] Bedtime, Dosing Weight 100, kg, PRN Blood Glucose Results, Start date: 12/01/12 13:08:00, Duration: 30 day, Stop date: 12/31/12 13:07:00 insulin aspart 4 unit, 0.04 mL, SUB-Q No Longer [facility] Route: SUB-Q, Active 2012 Medical Drug form: [facility], [place] TID-Before Meals, Dosing Weight 100, kg, PRN [...] unit, 0.01 mL, SUB-Q No Longer [facility] 11/30[facility] Route: SUB-Q, Active 2012 Medical Drug form: SOLN, Center Sliding Scale, Dosing Weight 100, kg, PRN Blood Glucose Results, Start date: 11/30/12 18:36:00, Duration: 30 day, Stop date: 12/30/12 18:35:00 insulin detemir 16 unit, 0.16 SUB-Q No Longer [facility] 11[facility]30[facility] mL, Route: Active 2012 Medical SUB-Q, Drug Center form: INJ, Q12H, Dosing Weight 100, kg, Start date: 11/30/12 14:00:00, Duration: 30 day, Stop date: 12/30/12 9:00:00 Zofran 4 mg, 2 mL, IV No Longer [place] Route: IV, Drug Active 2012 Medical form: INJ, Q6H, Center Dosing Weight 100, kg, PRN Nausea, Start date: 11/30/12 13:32:00, Duration: 30 day, Stop date: 12/30/12 13:31:00 insulin aspart 10 unit, 0.1 mL, SUB-Q No Longer [facility] Route: SUB-Q, Active 2012 Medical Drug form: SOLN, Center TID-Before Meals, Dosing Weight 100, kg, PRN Blood Glucose Results, Start date: 11/30/12 13:26:00, Duration: 30 day, Stop date: 12/30/12 13:25:00 Zofran 4 mg, 2 mL, IV No Longer [facility] [place] Route: IV, Drug Active 2012 Medical form: INJ, Q8H, Center Dosing Weight 100, kg, PRN Nausea, Start date: 11/30/12 11:58:00, Duration: 30 day, Stop date: 12/30/12 11:57:00 Zofran 4 mg, 2 mL, IVP No Longer [place] Route: IVP, Drug Active 2012 Medical form: INJ, ONCE, Center Dosing Weight 100, kg, Priority: NOW, Start date: 11/30/12 11:57:00, Stop date: 11/30/12 11:57:00 potassium 2 pkt, Route: PO No Longer [facility] [place] phosphate-sodiu PO, Drug Form: Active 2012 Medical m phosphate 250 PDR/REC, ONCE, Center mg-278 mg-164 Start date: mg oral powder 11/30/12 10:00:00, Stop date: 11/30/12 10:00:00 Dextrose 5% 1,000 mL, Rate: IV No Longer [facility] [place] with 0.45% NaCl 150 ml/hr, Active 2012 [...] unit, 0.1 mL, SUB-Q No Longer [facility] Route: SUB-Q, Active 2012 Medical Drug form: SOLN, Center TID-Before Meals, Dosing Weight 100, kg, PRN Blood Glucose Results, Start date: 11/30/12 7:57:00, Duration: 30 day, Stop date: 12/30/12 7:56:00 glucagon 1 mg, Route: IM, IM No Longer [facility] Drug form: Active 2012 Medical PDR/INJ, PRN, Center Dosing Weight 100, kg, PRN Blood Glucose Results, Start date: 11/30/12 7:57:00, Duration: 30 day, Stop date: 12/30/12 7:56:00 Dextrose 50% 25 gm, 50 mL, IVP No Longer [facility] Syringe Route: IVP, Drug Active 2012 [...] 5,000 unit, 1 SUB-Q No Longer [facility] units/mL mL, Route: Active 2012 Medical injectable SUB-Q, Drug Center solution form: INJ, Q8H, Dosing Weight 100, kg, Start date: 11/30/12 0:00:00, Duration: 30 day, Stop date: 12/29/12 16:00:00 hydrALAZINE 10 mg, 0.5 mL, IV No Longer [facility] Route: IV, Drug Active 2012 Medical form: INJ, Q4H, Center Dosing Weight 100, kg, PRN Hypertension, Start date: 11/29/12 22:56:00, Duration: 30 day, Stop date: 12/29/12 22:55:00 simvastatin 40 mg, 1 tab, PO No Longer [facility] Route: PO, Drug Active 2012 Medical form: TAB, Center Bedtime, Dosing Weight 101.364, kg, Start date: 11/29/12 21:00:00, Duration: 30 day, Stop date: 12/28/12 21:00:00 Cymbalta 60 mg, 1 cap, PO No Longer [place] Route: PO, Drug Active 2012 Medical form: DRC, Center Bedtime, Dosing Weight 101.364, kg, Start date: 11/29/12 21:00:00, Stop date: 12/28/12 21:00:00 ceftriaxone 1 gm, Route: IVPB No Longer [facility] IVPB, Drug form: Active 2012 Medical PDR/INJ, Center [id number], Dosing Weight 100, kg, Start date: 11/29/12 20:00:00, Duration: 30 day, Stop date: 12/28/12 20:00:00 hydrALAZINE 5 mg, 0.25 mL, IV No Longer [facility] Route: IV, Drug Active 2012 Medical form: INJ, Q4H, Center Dosing Weight 100, kg, PRN Hypertension, Start date: 11/29/12 19:42:00, Duration: 30 day, Stop date: 12/29/12 19:41:00 Phenergan 12.5 mg, 0.5 mL, IVPB No Longer [facility] Route: IVPB, Active 2012 Medical Drug form: INJ, Center Q4H, Dosing Weight 100, kg, PRN Nausea & Vomiting, Start date: 11/29/12 17:56:00, Duration: 30 day, Stop date: 12/29/12 17:55:00 clonazepam 0.5 mg, 1 tab, PO No Longer [facility] Route: PO, Drug Active 2012 Medical [...] 1,000 mL, Rate: IV No Longer Sushila [facility] mL 200 ml/hr, Active 2012 Medical Infuse over: 5 Center hr, Route: IV, kg, Total Volume: 1,000, Start date: 11/29/12 14:41:00, Stop date: 12/29/12 14:40:00 Sodium Chloride 1,000 mL, Rate: IV No Longer [facility] 0.9% IV 1,000 200 ml/hr, Active 2012 Medical mL Infuse over: 5 Center hr, Route: IV, kg, Total Volume: 1,000, Start date: 11/29/12 14:41:00, Stop date: 12/29/12 14:45:00 Insulin regular 99 mL, Rate: IV No Longer Nicho [facility] 100 unit + Start Insulin Active 2012 Medical Sodium Chloride Drip Per ICU Center 0.9% IV 99 mL protocol, Route: IV, kg, Total Volume: 100, Start date: 11/29/12 12:42:00, Stop date: 12/29/12 12:41:00 Insulin regular 100 mL, Rate: IVPB No Longer [facility]o 11/29[facility] 100 unit + Start Insulin Active [...] gm, 25 mL, IVP No Longer [facility] Syringe Route: IVP, Drug Active 2012 [...] 90 mg, 1 tab, PO No Longer [facility] Route: PO, Drug Active 2012 Medical form: ERTAB, Center Daily, Dosing Weight 101.364, kg, Start date: 11/29/12 9:00:00, Duration: 30 day, Stop date: 12/28/12 9:00:00 clonazepam 0.5 mg, 1 tab, PO No Longer [facility]rix [place] Route: PO, Drug Active 2012 Medical form: TAB, TID, Center Dosing Weight 101.364, kg, Start date: 11/29/12 9:00:00, Duration: 30 day, Stop date: 12/28/12 17:00:00 lisinopril 20 mg, 1 tab, PO No Longer [facility] Route: PO, Drug Active 2012 Medical form: TAB, Q12H, Center Dosing Weight 101.364, kg, Start date: 11/29/12 9:00:00, Duration: 30 day, Stop date: 12/28/12 21:00:00 magnesium oxide 400 mg, 1 tab, PO No Longer [facility] Route: PO, Drug Active 2012 Medical form: TAB, Center Daily, Dosing Weight 101.364, kg, Start date: 11/29/12 9:00:00, Duration: 30 day, Stop date: 12/28/12 9:00:00 Effient 10 mg, 1 tab, PO No Longer [facility] Route: PO, Drug Active 2012 Medical form: TAB, Center Daily, Dosing Weight 101.364, kg, Start date: 11/29/12 9:00:00, Duration: 30 day, Stop date: 12/28/12 9:00:00 Levemir 8 unit, 0.08 mL, SUB-Q No Longer [facility] Route: SUB-Q, Active 2012 Medical Drug [...] 81 mg, 1 tab, PO No Longer [facility] Route: PO, Drug Active 2012 Medical [...] mg, 0.4 mL, SUB-Q No Longer [facility] Route: SUB-Q, Active 2012 Medical Drug form: INJ, Center [id number], Dosing Weight 101.364, kg, Start date: 11/29/12 4:00:00, Duration: 30 day, Stop date: 12/28/12 4:00:00 Phenergan 12.5 mg, 0.25 IVPB No Longer [facility] mL, Route: IVPB, Active 2012 Medical Drug form: INJ, Center Q4H, Dosing Weight 101.364, kg, Start date: 11/29/12 4:00:00, Duration: 30 day, Stop date: 12/29/12 0:00:00 tramadol 50 mg 50 mg, 1 tab, PO No Longer [facility] oral tablet Route: PO, Drug Active 2012 Medical form: TAB, Q4H, Center Dosing Weight 101.364, kg, PRN as needed for pain, Start date: 11/29/12 3:46:00, Duration: 30 day, Stop date: 12/29/12 3:45:00 insulin aspart 3 unit, 0.03 mL, SUB-Q No Longer Nicho [facility] Route: SUB-Q, Active 2012 Medical Drug form: SOLN, [place] TID-Before Meals, Dosing Weight 101.364, kg, PRN Blood Glucose Results, Start date: 11/29/12 3:26:00, Duration: 30 day, Stop date: 12/29/12 3:25:00 Dextrose 50% 12.5 gm, 25 mL, IVP No Longer [facility] Syringe Route: IVP, Drug Active 2012 Medical Form: INJ, Center Dosing Weight 101.364, kg, PRN, PRN Blood Glucose Results, Start date: 11/29/12 3:26:00, Duration: 30 day, Stop date: 12/29/12 3:25:00 glucagon 1 mg, Route: IM, IM No Longer [facility] Drug form: Active 2012 Medical PDR/INJ, PRN, Center Dosing Weight 101.364, kg, PRN Blood Glucose Results, Start date: 11/29/12 3:26:00, Duration: 30 day, Stop date: 12/29/12 3:25:00 acetaminophen 650 mg, 20.3 mL, PO No Longer [facility] Route: PO, Drug Active 2012 Medical form: LIQ, Q4H, Center Dosing Weight 101.364, kg, PRN Pain 1-3/Temp > 100.4 F, Start date: 11/29/12 3:25:00, Duration: 30 day, Stop date: 12/29/12 3:24:00 docusate 100 mg, 1 cap, PO No Longer [facility] Route: PO, Drug Active 2012 Medical form: CAP, BID, Center Dosing Weight 101.364, kg, PRN Constipation, Start date: 11/29/12 3:25:00, Duration: 30 day, Stop date: 12/29/12 3:24:00 D5W 1/2NS 1,000 1,000 mL, Rate: IV No Longer Aaron [facility] mL 75 ml/hr, Infuse Active 2012 Medical over: 13.3 hr, Center Route: IV, kg, Total Volume: 1,000, Start date: 11/29/12 3:21:00, Duration: 30 day, Stop date: 12/29/12 3:20:00 NS 0.45% IV 1,000 mL, Rate: IV No Longer [facility] 1000 mL 125 ml/hr, Active 2012 Medical Infuse over: 8 Center hr, Route: IV, Dosing Weight 101.364 kg, Total Volume: 1,000, Start date: 11/29/12 3:18:00, Duration: 30 day, Stop date: 12/29/12 3:17:00 Reglan 10 mg, 2 mL, IVP No Longer [facility] Route: IVP, Drug Active 2012 Medical form: INJ, ONCE, Center Dosing Weight 101.364, kg, Priority: STAT, Start date: 11/29/12 2:31:00, Stop date: 11/29/12 2:31:00 Zofran 8 mg, Route: IVP No Longer [facility] IVP, Drug form: Active 2012 Medical [...] 12.5 mg, 0.5 mL, IVPB No Longer [facility] Route: IVPB, Active 2012 Medical Drug form: INJ, Center ONCE, Dosing Weight 101.364, kg, Priority: STAT, Start date: 11/29/12 0:56:00, Stop date: 11/29/12 0:56:00 Zofran 4 mg, 2 mL, IVP No Longer [facility] Route: IVP, Drug Active 2012 Medical form: INJ, ONCE, Center Dosing Weight 101.364, kg, Priority: STAT, Start date: 11/28/12 23:49:00, Stop date: 11/28/12 23:49:00 Phenergan 12.5 mg, 0.5 mL, IVPB No Longer [facility] Route: IVPB, Active 2012 Medical Drug [...] 5 ml, Route: IVP No Longer [facility] 0.9% IVP, Drug Form: Active 2012 Medical INJ, Dosing Center Weight 101.364, kg, PRN, PRN Line Flush, Start date: 11/28/12 19:29:00, Duration: 30 day, Stop date: 12/28/12 19:28:00 calcium 2,000 mg, 20 mL, IVPB No Longer [facility] gluconate + Route: IVPB, Active 2012 Medical Sodium Chloride ONCE, Dosing Center 0.9% IV 80 mL Weight 103.21, kg, Start date: 11/17/12 11:02:00, Stop date: 11/17/12 11:02:00 magnesium 2 gm, 50 mL, IVPB No Longer [facility] sulfate Route: IVPB, Active 2012 Medical Drug form: INJ, Center Q2H, Dosing Weight 103.21, kg, Total dose=4 gm, Start date: 11/17/12 10:00:00, Duration: 2 doses or times, Stop date: 11/17/12 12:00:00 aspirin 81 mg, 1 tab, PO No Longer [facility] Route: PO, Drug Active 2012 Medical form: ECTAB, Center Daily, Dosing Weight 100, kg, Start date: 11/17/12 9:00:00, Duration: 30 day, Stop date: 12/16/12 9:00:00 simvastatin 40 mg, 1 tab, PO No Longer [facility] Route: PO, Drug Active 2012 Medical form: TAB, Center Daily, Dosing Weight 100, kg, Start date: 11/17/12 9:00:00, Duration: 30 day, Stop date: 12/16/12 9:00:00 prasugrel 10 mg, 1 tab, PO No Longer [facility] Route: PO, Drug Active 2012 Medical form: TAB, Center Daily, Dosing Weight 100, kg, Start date: 11/17/12 9:00:00, Duration: 30 day, Stop date: 12/16/12 9:00:00 NIFEdipine 90 mg, 1 tab, PO No Longer [facility] Route: PO, Drug Active 2012 Medical form: ERTAB, Center Daily, Dosing Weight 100, kg, Start date: 11/17/12 9:00:00, Duration: 30 day, Stop date: 12/16/12 9:00:00 Toprol-XL 100 100 mg, 1 tab, PO No Longer [facility] mg oral tablet, Route: PO, Drug Active 2012 Medical extended form: ERTAB, Center release Daily, Start date: 11/17/12 9:00:00, Duration: 30 day, Stop date: 12/16/12 9:00:00 magnesium oxide 400 mg, 1 tab, PO No Longer [facility] Route: PO, Drug Active 2012 Medical form: TAB, Center Daily, Dosing Weight 100, kg, Start date: 11/17/12 9:00:00, Duration: 30 day, Stop date: 12/16/12 9:00:00 insulin detemir 15 unit, 0.15 SUB-Q No Longer [facility] mL, Route: Active 2012 Medical SUB-Q, Drug Center form: INJ, Daily, Dosing Weight 100, kg, Start date: 11/17/12 9:00:00, Duration: 30 day, Stop date: 12/16/12 9:00:00 Zofran 8 mg, 4 mL, IV No Longer [facility] Route: IV, Drug Active 2012 Medical form: INJ, Q4H, Center Dosing Weight 103.21, kg, PRN as needed for nausea/vomiting, Start date: 11/17/12 8:56:00, Duration: 30 day, Stop date: 12/17/12 8:55:00 Reglan 10 mg 10 mg, 1 tab, PO No Longer [facility] oral tablet Route: PO, Drug Active 2012 Medical form: TAB, Center TID-Before Meals, Dosing Weight 100, kg, Start date: 11/17/12 7:30:00, Duration: 30 day, Stop date: 12/16/12 16:30:00 insulin aspart 4 unit, 0.04 mL, SUB-Q No Longer [facility] Route: SUB-Q, Active 2012 Medical Drug form: SOLN, Center TID-Before Meals, Dosing Weight 100, kg, Start date: 11/17/12 7:30:00, Duration: 30 day, Stop date: 12/16/12 16:30:00 Cymbalta 120 mg, 2 cap, PO No Longer [facility] Route: PO, Drug Active 2012 Medical form: DRC, Center Bedtime, Dosing Weight 100, kg, Start date: 11/16/12 21:00:00, Duration: 30 day, Stop date: 12/15/12 21:00:00 lisinopril 20 mg, 1 tab, PO No Longer [facility] Route: PO, Drug Active 2012 Medical form: TAB, Q12H, Center Dosing Weight 100, kg, Start date: 11/16/12 21:00:00, Duration: 30 day, Stop date: 12/16/12 9:00:00 insulin detemir 12 unit, 0.12 SUB-Q No Longer [facility] mL, Route: Active 2012 Medical SUB-Q, Drug Center form: INJ, Bedtime, Dosing Weight 100, kg, Start date: 11/16/12 21:00:00, Duration: 30 day, Stop date: 12/15/12 21:00:00 clonazepam 0.5 mg, 1 tab, PO No Longer [facility] Route: PO, Drug Active 2012 Medical form: TAB, TID, Center Dosing Weight 100, kg, Start date: 11/16/12 20:30:00, Duration: 30 day, Stop date: 12/16/12 17:00:00 Neutra-Phos 1 pkt, Route: PO No Longer [facility] PO, Drug Form: Active 2012 Medical PDR/REC, Dosing Center Weight 100, kg, TID-Before Meals, Start date: 11/16/12 20:30:00, Duration: 30 day, Stop date: 12/16/12 16:30:00 enoxaparin 40 mg, 0.4 mL, SUB-Q No Longer [facility] Route: SUB-Q, Active 2012 Medical Drug form: INJ, Center [id number], Dosing Weight 100, kg, Start date: 11/16/12 19:00:00, Duration: 30 day, Stop date: 12/15/12 19:00:00 Sodium Chloride 1,000 mL, Rate: IV No Longer [place] 0.9% IV 1,000 125 ml/hr, Active 2012 Medical mL Infuse over: 8 Center hr, Route: IV, kg, Total Volume: 1,000, Start date: 11/16/12 18:10:00, Duration: 30 day, Stop date: 12/16/12 18:09:00 insulin aspart 10 unit, 0.1 mL, SUB-Q No Longer [facility] Route: SUB-Q, Active 2012 Medical Drug form: SOLN, Center TID-Before Meals, Dosing Weight 100, kg, PRN Blood Glucose Results, Start date: 11/16/12 18:10:00, Duration: 30 day, Stop date: 12/16/12 18:09:00 Dextrose 50% 12.5 gm, 25 mL, IVP No Longer [facility] Syringe Route: IVP, Drug Active 2012 Medical Form: INJ, Center Dosing Weight 100, kg, PRN, PRN Blood Glucose Results, Start date: 11/16/12 18:10:00, Duration: 30 day, Stop date: 12/16/12 18:09:00 glucagon 1 mg, Route: IM, IM No Longer [facility] Drug form: Active 2012 Medical PDR/INJ, PRN, Center Dosing Weight 100, kg, PRN Blood Glucose Results, Start date: 11/16/12 18:10:00, Duration: 30 day, Stop date: 12/16/12 18:09:00 [place] 5/325 1 tab, Route: PO No Longer [facility] oral tablet PO, Drug Form: Active 2012 Medical TAB, Dosing Center Weight 100, kg, Q6H, PRN as needed for pain, Start date: 11/16/12 18:07:00, Duration: 30 day, Stop date: 12/16/12 18:06:00 tramadol 50 mg 50 mg, 1 tab, PO No Longer [facility] oral tablet Route: PO, Drug Active 2012 Medical form: TAB, Q4H, Center Dosing Weight 100, kg, PRN as needed for pain, Start date: 11/16/12 18:01:00, Duration: 30 day, Stop date: 12/16/12 18:00:00 promethazine 25 mg, 1 tab, PO No Longer [facility] Route: PO, Drug Active 2012 Medical form: TAB, Q4H, Center Dosing Weight 100, kg, PRN as needed for nausea/vomiting, Start date: 11/16/12 18:01:00, Duration: 30 day, Stop date: 12/16/12 18:00:00 ondansetron 8 mg, 2 tab, PO No Longer [facility] Route: PO, Drug Active 2012 Medical form: TABDIS, Center Q8H, Dosing Weight 100, kg, PRN Nausea & Vomiting, Start date: 11/16/12 18:01:00, Stop date: 12/16/12 18:00:00, nauea ondansetron 8 8 mg, 1 tab, PO, PO Active [facility] mg oral tablet, Q8H, PRN, 2012 Medical disintegrating Dissolve under Center tongue, 10 tab, as needed for nausea/vomiting, Substitution AllowedDissolve under tongue Effient 10 mg 10 mg, 1 tab, PO Active [facility] oral tablet PO, Daily, 30 2012 Medical tab, Center Substitution Allowed, TAB tramadol 50 mg 50 mg, 1 tab, PO Active [facility] oral tablet PO, Q4H, PRN, 60 2012 Medical tab, for pain, Center Substitution Allowed, TAB clonazepam 0.5 0.5 mg, 1 tab, PO Active [place] 11/16[facility] mg oral tablet PO, TID, 2012 Medical Substitution Center Allowed, TAB Reglan 10 mg, Route: IVP No Longer [facility] IVP, ONCE, Active 2012 Medical Dosing Weight Center 100, kg, Priority: STAT, Start date: 11/16/12 16:16:00, Stop date: 11/16/12 16:16:00 magnesium 1 gm, 2 mL, IV No Longer [facility] sulfate Route: IV, Drug Active 2012 Medical form: INJ, ONCE, Center Dosing Weight 100, kg, Priority: STAT, Start date: 11/16/12 15:50:00, Stop date: 11/16/12 15:50:00 Omnipaque 100 mL, Route: IVP No Longer [facility] 350mg/ml IVP, Drug Form: Active 2012 Medical SOLN, Dosing Center Weight 100, kg, ONCALL, STAT, Start date: 11/16/12 15:35:00, Duration: 1 doses or times, Dose=2.2ml/kg, Max casc=[id number] -- "To be infused by Radiology Staff ONLY"Dose=2.2ml/ kg, Max ibol=[id number] -- "To be infused by Radiology Staff [...] 1 mg, 0.5 mL, IVP No Longer [place] [facility] Route: IVP, Drug Active 2012 Medical [...] mg, 4 tab, CHEW No Longer [facility] Route: CHEW, Active 2012 Medical Drug form: Center CHEWTAB, ONCE, Dosing Weight 100, kg, Priority: STAT, Start date: 11/16/12 13:29:00, Stop date: 11/16/12 13:29:00 Zofran 8 mg, 4 mL, IVP No Longer [facility] Route: IVP, Drug Active 2012 Medical form: INJ, ONCE, Center Dosing Weight 100, kg, Priority: STAT, Start date: 11/16/12 13:17:00, Stop date: 11/16/12 13:17:00 Saline Flush 5 mL, Route: IVP No Longer [facility] 0.9% IVP, Drug Form: Active 2012 Medical INJ, Dosing Center Weight 100, kg, Q8H, PRN Line Flush, Start date: 11/16/12 13:16:00, Duration: 30 day, Stop date: 12/16/12 13:15:00, Administer at least once every 8 hoursAdminister at least once every 8 hours Reglan 10 mg 10 mg, 1 tab, PO Active [facility] oral tablet PO, TID-Before 2012 Medical Meals, PRN, 42 Center tab, nausea, Substitution Allowed, TAB [place] 5/325 1 tab, PO, Q6H, PO Active [facility] [place] 11/14[facility] oral tablet PRN, 10 tab, 2013 Medical Pain, Center Substitution Allowed, Maintenance, TAB ondansetron 8 8 mg, 1 tab, PO, PO Active [facility] [place] 11/14[facility] mg oral tablet, Q8H, PRN, 60 2012 Medical disintegrating tab, 1, 1, Center Nausea, Substitution Allowed, TABDIS insulin detemir 12 unit, 0.12 SUB-Q Active [facility] [place] 11/14[facility] 100 units/mL mL, SUB-Q, 2012 Medical subcutaneous Bedtime, 4 mL, Center solution Substitution Allowed, INJ insulin detemir 15 unit, 0.15 SUB-Q Active [facility] [place] 11/14[facility] 100 units/mL mL, SUB-Q, 2012 Medical subcutaneous Daily, 5 mL, Center solution Substitution Allowed, INJ Zofran 4 mg, 1 tab, PO No Longer [facility] [place] [facility] Route: PO, Drug Active 2012 Medical form: TAB, Q8H, Center Dosing Weight 100, kg, Start date: 11/14/12 16:00:00, Duration: 30 day, Stop date: 12/14/12 8:00:00 Reglan 10 mg 10 mg, 1 tab, PO No Longer [facility] [place] [facility] oral tablet Route: [...] mL Q2H, Dosing Weight 100, kg, Total [id number]=[id number] mg, Start date: 11/14/12 8:00:00, Duration: 2 doses or times, Stop date: 11/14/12 10:00:00 magnesium 2 gm, 50 mL, IVPB No Longer [facility] [place] [facility] sulfate Route: IVPB, [...] 20 mEq, 100 mL, IVPB No Longer [facility] [place] [facility] chloride Route: IVPB, Active 2012 Medical Drug form: INJ, Center ONCE, Dosing Weight 100, kg, Total dose=20mEq, Start date: 11/13/12 7:58:00, Duration: 1 doses or times, Stop date: 11/13/12 7:58:00, For K=3.5 - 3.9 mEq/LFor K=3.5 - 3.9 mEq/L calcium 1,000 mg, 10 mL, IVPB No Longer [facility] [place] [facility] gluconate + Route: IVPB, Active 2012 Medical Sodium Chloride ONCE, Dosing Center 0.9% IV 50 mL Weight 100, kg, Start date: 11/13/12 7:56:00, Stop date: 11/13/12 7:56:00 Reglan 10 mg, 2 mL, IVP No Longer [facility] [place] [facility] Route: IVP, Drug Active 2012 Medical form: INJ, Center Before Meals & Bedtime, Dosing Weight 100, kg, Start date: 11/12/12 16:30:00, Duration: 30 day, Stop date: 12/12/12 11:30:00 [place] 5/325 1 tab, Route: PO No Longer [facility] oral tablet PO, Drug Form: Active jaida 2012 Medical TAB, Dosing Center Weight 100, kg, Q6H, PRN Pain, Start date: 11/12/12 16:07:00, Duration: 30 day, Stop date: 12/12/12 16:06:00 Reglan 10 mg, Route: IVP No Longer [facility] IVP, Q6H, Dosing Active 2012 Medical Weight 100, kg, Center PRN Nausea & Vomiting, Start date: 11/12/12 12:35:00, Duration: 30 day, Stop date: 12/12/12 12:34:00 insulin detemir 15 unit, Route: SUB-Q No Longer [facility] SUB-Q, ONCE, Active 2012 Medical Dosing Weight Center 100, kg, Priority: NOW, Start date: 11/12/12 10:38:00, Stop date: 11/12/12 10:38:00 heparin 7,500 unit, 1.5 SUB-Q No Longer Cardo[facility] mL, Route: Active 2012 Medical SUB-Q, [...] Chloride 1,000 mL, Rate: IV No Longer [facility] [place] 0.9% (Bolus) IV 1,000 ml/hr, Active 2012 Medical 1,000 mL Infuse over: 1 Center hr, Route: IV, kg, Total Volume: 1,000, Priority: STAT, Start date: 11/10/12 20:17:00, Duration: 1 doses or times, Stop date: 11/10/12 21:16:00, Bolus DoseBolus Dose insulin detemir 10 unit, 0.1 mL, SUB-Q No Longer [facility]ingojasaleem [facility] Route: SUB-Q, Active 2012 Medical Drug form: INJ, Center ONCE, Dosing Weight 100, kg, Priority: NOW, Start date: 11/10/12 11:40:00, Stop date: 11/10/12 11:40:00 Zofran ODT 4 mg, 1 tab, PO No Longer [facility] [place] Route: PO, Drug Active 2012 Medical form: TABDIS, Center Q8H, Dosing Weight 100, kg, PRN Nausea, Start date: 11/10/12 11:04:00, Duration: 30 day, Stop date: 12/10/12 11:03:00 Phenergan 12.5 mg, 0.5 mL, IM No Longer Ahmad [place] Route: IM, Drug 2012 Medical form: INJ, PRN, Center Dosing Weight 100, kg, PRN as needed for nausea/vomiting, Start date: 11/10/12 10:00:00, Duration: 30 day, Stop date: 12/10/12 10:59:00 insulin detemir 16 unit, 0.16 SUB-Q No Longer [place] mL, Route: Active 2012 Medical SUB-Q, Drug Center form: INJ, ONCE, Dosing Weight 100, kg, Start date: 11/10/12 0:20:00, Stop date: 11/10/12 0:20:00 NovoLog 6 unit, 0.06 mL, SUB-Q No Longer Viraki [facility] Route: SUB-Q, Active 2012 Medical Drug form: SOLN, Center TID-Before Meals, Dosing Weight 100, kg, Start date: 11/09/12 16:30:00, Duration: 30 day, Stop date: 12/09/12 11:30:00 insulin aspart 7 unit, 0.07 mL, SUB-Q No Longer Loida [facility] Route: SUB-Q, Active 2012 Medical Drug form: SOLN, Center ONCE, Dosing Weight 100, kg, Start date: 11/09/12 13:24:00, Stop date: 11/09/12 13:24:00 insulin detemir 20 unit, 0.2 mL, SUB-Q No Longer Juanjo [facility] Route: SUB-Q, Active 2012 Medical Drug form: INJ, Center Daily, Dosing Weight 100, kg, Start date: 11/09/12 9:00:00, Duration: 30 day, Stop date: 12/08/12 9:00:00 morphine 1 mg, 0.5 mL, IV No Longer [facility] Sulfate Route: IV, Drug Active 2012 Medical form: INJ, ONCE, Center Dosing Weight 100, kg, Start date: 11/09/12 5:28:00, Stop date: 11/09/12 5:28:00 insulin detemir 12 unit, 0.12 SUB-Q No Longer Olejarski [facility] mL, Route: Active 2012 Medical SUB-Q, Drug Center form: INJ, Bedtime, Dosing Weight 100, kg, Start date: 11/08/12 21:00:00, Stop date: 12/07/12 21:00:00 morphine 2 mg, 1 mL, IVP No Longer [facility] Sulfate Route: IVP, Drug Active 2012 Medical form: INJ, ONCE, Center Dosing Weight 100, kg, Start date: 11/08/12 18:34:00, Stop date: 11/08/12 18:34:00 ampicillin + 1,500 mg, Route: IVPB No Longer [facility] Sodium Chloride IVPB, Drug form: Active 2012 Medical 0.9% IV 100 mL PDR/INJ, [id number], Center Dosing Weight 100, kg, Start date: 11/08/12 18:00:00, Duration: 30 day, Stop date: 12/08/12 12:00:00 ciprofloxacin 500 mg, 1 tab, PO No Longer [facility] Route: PO, Drug Active 2012 Medical form: TAB, Center [id number], Dosing Weight 100, kg, Start date: 11/08/12 [...] 40 mg, Route: IVP No Longer [facility] IVP, Drug form: Active 2012 Medical INJ, Before Center Breakfast, Dosing Weight 100, kg, Start date: 11/07/12 7:30:00, Duration: 30 day, Stop date: 12/06/12 7:30:00 insulin aspart 10 unit, 0.1 mL, SUB-Q No Longer Ahmad [facility] Route: SUB-Q, 2012 Medical Drug form: SOLN, Center ONCE, Dosing Weight 100, kg, Start date: 11/06/12 13:32:00, Stop date: 11/06/12 13:32:00 adenosine 84 mg, Route: IVP No Longer Ahmad [facility] IVP, ONCE, 2012 Medical Dosing Weight Center 100, kg, Priority: Routine, Start date: 11/06/12 10:20:00, Stop date: 11/06/12 10:20:00 Insulin regular 10 unit, 0.1 mL, SUB-Q No Longer [facility] Route: SUB-Q, 2012 Medical Drug form: SOLN, Center ONCE, Dosing Weight 100, kg, Start date: 11/06/12 9:47:00, Stop date: 11/06/12 9:47:00 insulin aspart 10 unit, 0.1 mL, SUB-Q No Longer [facility] Route: SUB-Q, 2012 Medical Drug form: SOLN, Center ONCE, Dosing Weight 100, kg, Start date: 11/06/12 9:43:00, Stop date: 11/06/12 9:43:00 Lactated 1,000 mL, Rate: IV No Longer [place] (Bolus) 1,000 ml/hr, Active 2012 Medical IV 1,000 mL Infuse over: 1 Center hr, Route: IV, kg, Total Volume: 1,000, Bolus Dose, Priority: STAT, Start date: 11/06/12 9:14:00, Duration: 1 doses or times, Stop date: 11/06/12 10:13:00 Insulin regular 9 unit, 0.09 mL, SUB-Q No Longer [facility] Route: SUB-Q, Active 2012 Medical Drug [...] SUB-Q, Active 2012 Medical Drug form: SOLN, [place] TID-Before Meals, Dosing Weight 100, kg, Start date: 11/06/12 7:30:00, Duration: 30 day, Stop date: 12/05/12 16:30:00 metoclopramide 10 mg, 2 mL, IVP No Longer [facility] Route: IVP, Drug Active 2012 Medical form: INJ, Q6H, Center Dosing Weight 100, kg, PRN Nausea & Vomiting, Start date: 11/06/12 1:49:00, Duration: 30 day, Stop date: 12/06/12 1:48:00 Benadryl 25 mg, 0.5 mL, IV No Longer [place] [facility] Route: IV, Drug Active 2012 Medical form: INJ, Q4H, Center Dosing Weight 100, kg, PRN as needed for nausea/vomiting, Start date: 11/06/12 1:44:00, Duration: 30 day, Stop date: 12/06/12 1:43:00 Phenergan 12.5 mg, 0.5 mL, IVPB No Longer [place] [facility] Route: IVPB, Active 2012 Medical Drug form: INJ, Center Q6H, Dosing Weight 100, kg, PRN Nausea & Vomiting, Start date: 11/06/12 1:43:00, Stop date: 12/06/12 1:42:00 Benadryl 25 mg, 1 cap, PO No Longer [facility] Route: PO, Drug Active 2012 Medical form: CAP, TID, Center Dosing Weight 100, kg, PRN Nausea, Start date: 11/06/12 0:31:00, Duration: 30 day, Stop date: 12/06/12 0:30:00 labetalol 20 mg, 4 mL, IVP No Longer [facility] [facility] Route: IVP, Drug Active 2012 Medical form: INJ, ONCE, Center Dosing Weight 100, kg, Start date: 11/06/12 0:25:00, Stop date: 11/06/12 0:25:00 simvastatin 40 mg, 1 tab, PO No Longer [place] [facility] Route: PO, Drug Active 2012 Medical form: TAB, Center Bedtime, Dosing Weight 100, kg, Start date: 11/05/12 23:00:00, Duration: 30 day, Stop date: 12/05/12 21:00:00 lisinopril 20 mg, 1 tab, PO No Longer [place] [facility] Route: PO, Drug Active 2012 Medical form: TAB, Q12H, Center Dosing Weight 100, kg, Start date: 11/05/12 23:00:00, Duration: 30 day, Stop date: 12/05/12 21:00:00 insulin detemir 20 unit, 0.2 mL, SUB-Q No Longer Olejarski [facility] Route: SUB-Q, Active 2012 Medical Drug form: INJ, Center Q12H, Dosing Weight 100, kg, Start date: 11/05/12 23:00:00, Stop date: 12/05/12 21:00:00 magnesium oxide 400 mg, 1 tab, PO Active [place] 400 mg oral PO, Daily, 2012 Medical tablet tab, Center Substitution Allowed, TAB metoprolol 100 100 mg, 1 tab, PO Active [facility] mg oral tablet, PO, Daily, 30 2012 Medical extended tab, Center release Substitution Allowed NIFEdipine 90 90 mg, 1 tab, PO Active [facility] mg oral tablet, PO, Daily, 30 2012 Medical extended tab, Center release Substitution Allowed, ERTAB prasugrel 10 mg 10 mg, 1 tab, PO Active [facility] oral tablet PO, Daily, 2012 Medical tab, Center Substitution Allowed, TAB Cymbalta 60 mg, Daily, Active [facility] Substitution 2012 Medical Allowed Center tramadol 50 mg 50 mg, 1 tab, PO No Longer [facility] [facility] oral tablet Route: PO, Drug Active 2012 Medical form: TAB, Q4H, Center Dosing Weight 100, kg, PRN For Pain, Start date: 11/05/12 22:39:00, Duration: 30 day, Stop date: 12/05/12 22:38:00 promethazine 25 mg, 1 tab, PO No Longer [facility] Route: PO, Drug Active 2012 Medical form: TAB, Q6H, Center Dosing Weight 100, kg, PRN as needed for nausea/vomiting, Start date: 11/05/12 22:39:00, Duration: 30 day, Stop date: 12/05/12 22:38:00 Phenergan 25 mg, 1 tab, PO No Longer [place] [facility] Route: PO, Drug Active 2012 Medical form: TAB, Q4H, Center Dosing Weight 104.545, kg, PRN Nausea & Vomiting, Start date: 11/05/12 22:33:00, Duration: 30 day, Stop date: 12/05/12 22:32:00 Zofran 8 mg, 4 mL, IV No Longer [place] Route: IV, Drug Active 2012 Medical form: INJ, Q8H, Center Dosing Weight 104.545, kg, PRN Nausea, Start date: 11/05/12 22:32:00, Duration: 30 day, Stop date: 12/05/12 22:31:00 Saline Flush 5 ml, Route: IVP No Longer [place] 0.9% IVP, Drug Form: Active 2012 Medical INJ, Dosing Center Weight 104.545, kg, PRN, PRN Line Flush, Start date: 11/05/12 22:14:00, Duration: 30 day, Stop date: 12/05/12 23:13:00 Sodium Chloride 500 mL, Rate: IV No Longer [place] 0.9% (Bolus) IV 2,000 ml/hr, Active 2012 Medical 500 mL Infuse over: 15 Center minutes, Route: IV, kg, Total Volume: 500, Priority: STAT, Start date: 11/05/12 22:14:00, Duration: 1 doses or times, Stop date: 11/05/12 22:28:00 nitroglycerin 0.4 mg, 1 tab, SL No Longer [facility] SL Tab Route: SL, Drug 2012 Medical form: TAB, Center Q5Min, Dosing Weight 104.545, kg, PRN Chest Pain, Start date: 11/05/12 22:14:00, Duration: 3 doses or times, Stop date: Limited # of times Phenergan 12.5 mg, Route: IVPB No Longer Dilan [place] IVPB, ONCE, Active 2012 Medical Dosing Weight Center 104.545, kg, Priority: STAT, Start date: 11/05/12 22:05:00, Stop date: 11/05/12 22:05:00 Phenergan 12.5 mg, 0.5 mL, IVPB No Longer Dilan [facility] Route: IVPB, Active 2012 Medical Drug form: INJ, Center ONCE, Dosing Weight 104.545, kg, Priority: STAT, Start date: 11/05/12 21:08:00, Stop date: 11/05/12 21:08:00 carvedilol 12.5 mg, 1 tab, PO No Longer Dilan [facility] Route: PO, Drug Active 2012 Medical form: TAB, ONCE, Center Dosing Weight 104.545, kg, Start date: 11/05/12 19:20:00, Stop date: 11/05/12 19:20:00 Effient 10 mg, 1 tab, PO No Longer Dilan [facility] Route: PO, Drug Active 2012 Medical form: TAB, ONCE, Center Dosing Weight 104.545, kg, Start date: 11/05/12 19:16:00, Stop date: 11/05/12 19:16:00 ondansetron 4 mg, 2 mL, IVP No Longer Dilan [facility] Route: IVP, Drug Active 2012 Medical form: INJ, ONCE, Center Dosing Weight 104.545, kg, Priority: STAT, Start date: 11/05/12 19:14:00, Stop date: 11/05/12 19:14:00 aspirin 324 mg, 4 tab, PO No Longer Dilan [facility] Route: PO, Drug Active 2012 Medical form: [place], Center ONCE, Dosing Weight 104.545, kg, Priority: STAT, Start date: 11/05/12 19:14:00, Stop date: 11/05/12 19:14:00 Saline Flush 5 mL, Route: IVP No Longer Dilan [facility] 0.9% IVP, Drug Form: Active 2012 [...] detemir 16 unit, 0.16 SUB-Q No Longer [place] mL, Route: Active 2012 Medical SUB-Q, Drug Center form: INJ, Q12H, Dosing Weight 78.2, kg, Start date: 10/31/12 21:00:00, Duration: 30 day, Stop date: 11/30/12 9:00:00 insulin aspart 4 unit, 0.04 mL, SUB-Q Active [place] 100 units/mL SUB-Q, 2012 Medical subcutaneous TID-Before [place] solution Meals, 1 vial, 2, 2, Substitution Allowed, SOLN insulin detemir 16 unit, 0.16 SUB-Q Active [facility] 100 units/mL mL, SUB-Q, Q12H, 2012 Medical subcutaneous 1 vial, 2, 2, Center solution Substitution Allowed, INJ tramadol 50 mg 50 mg, 1 tab, PO Active [facility] [place] oral tablet PO, Q4H, PRN, 30 2012 Medical tab, as needed Center for pain, Substitution Allowed, TAB simvastatin 40 40 mg, 1 tab, PO Active [facility] [place] mg oral tablet PO, Bedtime, 30 2012 Medical tab, 1, 1, Center Substitution Allowed, Maintenance, TAB promethazine 25 25 mg, 1 tab, PO Active [facility] [place] mg oral tablet PO, Q6H, PRN, 60 2012 Medical tab, 1, 1, Center Nausea & Vomiting, Substitution Allowed, TAB prasugrel 10 mg 10 mg, 1 tab, PO Active [facility] [place] oral tablet PO, Daily, 30 2012 Medical tab, 1, 1, Center Substitution Allowed, TAB ondansetron 8 8 mg, 1 tab, PO, PO Active [facility] 10/31/ [place] mg oral tablet, Q8H, PRN, 60 2012 Medical disintegrating tab, 1, 1, Center Nausea, Substitution Allowed, TABDIS NIFEdipine 90 90 mg, 1 tab, PO Active [facility] 10/31/ [place] mg oral tablet, PO, Daily, 30 2012 Medical extended tab, 1, 1, Center release Substitution Allowed, ERTAB Toprol-XL 100 100 mg, 1 tab, PO Active [place] 10/31/ [place] mg oral tablet, PO, Daily, 30 2012 Medical extended tab, 1, 1, Center release Substitution Allowed, ERTAB magnesium oxide 400 mg, 1 tab, PO Active [facility] 10/31/ [place] 400 mg oral PO, Daily, 30 2012 Medical tablet tab, 1, 1, Center Substitution Allowed, TAB lisinopril 20 20 mg, 1 tab, PO Active [facility] 10/31/ [place] mg oral tablet PO, Q12H, 60 2012 Medical tab, 1, 1, Center Substitution Allowed, TAB aspirin 81 mg 81 mg, 1 tab, PO Active [facility] tablet, enteric PO, Daily, 30 2012 Medical coated tab, 1, 1, Center Substitution Allowed, ECTAB insulin aspart 6 unit, 0.06 mL, SUB-Q No Longer [place] Route: SUB-Q, Active 2012 Medical Drug form: SOLN, [place] TID-Before Meals, Dosing Weight 78.2, kg, PRN [...] 50 mg, 1 tab, PO No Longer [facility] [facility] oral tablet Route: PO, Drug Active 2012 Medical form: TAB, Q4H, Center Dosing Weight 78.2, kg, PRN as needed for pain, Start date: 10/29/12 9:45:00, Duration: 30 day, Stop date: 11/28/12 9:44:00 Toradol 15 15 mg, 0.5 mL, IV No Longer [facility] mg/mL Route: IV, Drug Active 2012 Medical injectable form: INJ, ONCE, Center solution Dosing Weight 78.2, kg, Start date: 10/29/12 6:54:00, Stop date: 10/29/12 6:54:00 Toradol 15 15 mg, 0.5 mL, IV No Longer [facility] mg/mL Route: IV, Drug Active 2012 Medical injectable form: INJ, ONCE, Center solution Dosing Weight 78.2, kg, Start date: 10/29/12 1:07:00, Stop date: 10/29/12 1:07:00 insulin detemir 20 unit, 0.2 mL, SUB-Q No Longer Fitzpatrikc [facility] Route: SUB-Q, Active 2012 Medical Drug [...] 20 mg, Route: IVP No Longer [facility] 02/22[facility] IVP, Drug form: Active 2012 Medical INJ, ONCE, Center Dosing Weight 78.2, kg, Start date: 10/27/12 19:28:00, Stop date: 10/27/12 19:28:00 labetalol 20 mg, 4 mL, IVP No Longer [place] 10/27[facility] Route: IVP, Drug Active 2012 Medical form: INJ, ONCE, Center Dosing Weight 78.2, kg, Start date: 10/27/12 17:28:00, Stop date: 10/27/12 17:28:00 Benadryl 25 mg, 1 cap, PO No Longer [place] [facility] Route: PO, Drug Active 2012 Medical form: CAP, ONCE, Center Dosing Weight 78.2, kg, Start date: 10/27/12 17:28:00, Stop date: 10/27/12 17:28:00 Reglan 10 mg 10 mg, Route: PO No Longer [place] [facility] oral tablet PO, Drug form: Active 2012 Medical TAB, Before Center Meals & Bedtime, Dosing Weight 78.2, kg, Start date: 10/27/12 16:30:00, Duration: 30 day, Stop date: 11/26/12 11:30:00 Reglan 5 mg, 1 mL, IV No Longer [facility] Route: IV, Drug Active 2012 Medical form: INJ, Q8H, Center Dosing Weight 78.2, kg, Start date: 10/27/12 16:00:00, Duration: 30 day, Stop date: 11/26/12 8:00:00 Reglan 5 mg, 1 mL, IV No Longer [facility] Route: IV, Drug Active 2012 Medical form: INJ, Q8H, Center Dosing Weight 78.2, kg, PRN Nausea, Start date: 10/27/12 13:08:00, Duration: 30 day, Stop date: 11/26/12 13:07:00 lisinopril 20 mg, 1 tab, PO No Longer [facility] Route: PO, Drug Active 2012 Medical form: TAB, Q12H, Center Dosing Weight 78.2, kg, Start date: 10/27/12 10:00:00, Duration: 30 day, Stop date: 11/26/12 9:00:00 ergocalciferol 50,000 IntlUnit, PO No Longer Man[place] [facility] 1 cap, Route: Active 2012 Medical PO, Drug form: Center CAP, Daily, Dosing Weight 78.2, kg, Start date: 10/27/12 9:00:00, Duration: 4 day, Stop date: 10/30/12 9:00:00 magnesium oxide 400 mg, 1 tab, PO No Longer [place] Route: PO, Drug Active 2012 Medical form: TAB, Center Daily, Dosing Weight 78.2, kg, Start date: 10/27/12 9:00:00, Duration: 30 day, Stop date: 11/25/12 9:00:00 Toprol-XL 100 100 mg, 1 tab, PO No Longer Tate [facility] mg oral tablet, Route: PO, Drug Active 2012 Medical extended form: ERTAB, [place] release Daily, Start date: 10/27/12 9:00:00, Duration: 30 day, Stop date: 11/25/12 9:00:00 insulin aspart 7 unit, Route: SUB-Q No Longer Man[place]az [facility] SUB-Q, Drug Active 2012 Medical form: [place]oyd [place] TID-Before Meals, Dosing Weight 78.2, kg, Start date: 10/26/12 12:00:00, Duration: 30 day, Stop date: 11/25/12 11:30:00 Insulin regular 10 unit, 0.1 mL, SUB-Q No Longer [facility] Route: SUB-Q, Active 2012 Medical [facility], Dosing Weight 78.2, kg, Start date: 10/26/12 10:32:00, Stop date: 10/26/12 10:32:00 NIFEdipine 90 mg, 1 tab, PO No Longer [facility] extended Route: PO, Drug Active 2012 Medical release form: ERTAB, [place] Daily, Dosing Weight 78.2, kg, Start date: 10/26/12 9:00:00, Duration: 30 day, Stop date: 11/24/12 9:00:00 metoprolol 25 mg, 1 tab, PO No Longer [facility] tartrate Route: PO, Drug Active 2012 Medical form: TAB, Q12H, Center Dosing Weight 78.2, kg, Start date: 10/26/12 9:00:00, Duration: 30 day, Stop date: 11/24/12 21:00:00 Reglan 10 mg, 1 tab, PO No Longer [facility] Route: PO, Drug Active 2012 Medical [...] gm, 50 mL, IVPB No Longer [facility] sulfate Route: IVPB, Active 2012 Medical [...] mg, 1 tab, PO No Longer [facility] Route: PO, Drug Active 2012 Medical form: ERTAB, Center ONCE, Dosing Weight 78.2, kg, Start date: 10/25/12 14:49:00, Stop date: 10/25/12 14:49:00 1/2 NS 1,000 mL 1,000 mL, Rate: IV No Longer [place] [facility] 100 ml/hr, Active 2012 Medical Infuse over: 10 Center hr, Route: IV, kg, Total Volume: 1,000, Start date: 10/25/12 13:52:00, Duration: 30 day, Stop date: 11/24/12 13:51:00 atenolol 100 mg, 1 tab, PO No Longer [facility] Route: PO, Drug Active 2012 Medical form: TAB, Center Daily, Dosing Weight 78.2, kg, Start date: 10/25/12 9:00:00, Duration: 30 day, Stop date: 11/23/12 9:00:00 Protonix 40 mg, Route: IVP No Longer [facility] IVP, Drug form: Active 2012 Medical INJ, Daily, Center Dosing Weight 78.2, kg, Start date: 10/25/12 9:00:00, Duration: 30 day, Stop date: 11/23/12 9:00:00 NovoLog FlexPen 6 unit, 0.06 mL, SUB-Q No Longer [place] Route: SUB-Q, 2012 Medical Drug form: SOLN, Center TID-Before Meals, Start date: 10/25/12 7:30:00, Duration: 30 day, Stop date: 11/23/12 16:30:00 insulin lispro 6 unit, Route: SUB-Q No Longer Funez [facility] SUB-Q, 2012 Medical TID-Before Center Meals, Dosing Weight 78.2, kg, Start date: 10/25/12 7:30:00, Duration: 30 day, Stop date: 11/23/12 16:30:00 Lactated 1,000 mL, Rate: IV No Longer Dee Dee Jon [facility] Ringers IV 250 ml/hr, Active 2012 Medical 1,000 mL Infuse over: 4 Center hr, Route: IV, kg, Total Volume: 1,000, Start date: 10/25/12 5:50:00, Duration: 30 day, Stop date: 11/24/12 5:49:00 Lactated 1,000 mL, Rate: [facility] Ringers (Bolus) 100 ml/hr, Active 2012 Medical IV 1,000 mL Infuse over: 10 Center hr, Route: IV, kg, Total Volume: 1,000, Start date: 10/25/12 5:50:00, Duration: 1 doses or times, Stop date: 10/25/12 15:49:00 insulin aspart 9 unit, 0.09 mL, SUB-Q No Longer Man[place] [facility] Route: SUB-Q, Active 2012 Medical Drug form: SOLN, Center TID-Before Meals, Dosing Weight 78.2, kg, PRN Blood Glucose Results, Start date: 10/25/12 3:53:00, Duration: 30 day, Stop date: 11/24/12 3:52:00 glucagon 1 mg, Route: IM, IM No Longer Funez [facility] Drug form: Active 2012 Medical PDR/INJ, PRN, Center Dosing Weight 78.2, kg, PRN Blood Glucose Results, Start date: 10/25/12 3:53:00, Duration: 30 day, Stop date: 11/24/12 4:52:00 Dextrose 50% 12.5 gm, 25 mL, IVP No Longer Funez [facility] 10/25[facility] Syringe Route: IVP, Drug Active 2012 Medical Form: INJ, Center Dosing Weight 78.2, kg, PRN, PRN Blood Glucose Results, Start date: 10/25/12 3:53:00, Duration: 30 day, Stop date: 11/24/12 4:52:00 Dextrose 50% 25 mL, Route: IVP No Longer Funez [facility] 10/25[facility] Syringe IVP, Dosing Active 2012 Medical Weight 78.2, kg, Center PRN, PRN Blood Glucose Results, Start date: 10/25/12 3:52:00, Duration: 30 day, Stop date: 11/24/12 4:51:00 glucagon 1 mg, Route: IM, IM No Longer Funez [facility] 10/25[facility] PRN, Dosing Active 2012 Medical Weight 78.2, kg, Center PRN Blood Glucose Results, Start date: 10/25/12 3:52:00, Duration: 30 day, Stop date: 11/24/12 4:51:00 Neutra-Phos 2 pkt, Route: PO No Longer Neeru [facility] PO, Drug Form: Active 2012 Medical [...] mg, 1 mL, IVP No Longer [facility] Sulfate Route: IVP, Drug Active 2012 [...] 1 tab, PO No Longer Funez [place] [facility] tartrate Route: PO, Drug Active 2012 Medical form: TAB, Q8H, Center Dosing Weight 78.2, kg, Start date: 10/24/12 16:00:00, Duration: 30 day, Stop date: 11/23/12 8:00:00 clonazepam 0.5 mg, 1 tab, PO No Long[facility] Route: PO, Drug Active 2012 Medical form: TAB, ONCE, Center Dosing Weight 78.2, kg, Start date: 10/24/12 15:03:00, Stop date: 10/24/12 15:03:00 NIFEdipine 60 mg, 1 tab, PO No Longer [facility] extended Route: PO, Drug Active 2012 [...] 40 mg, 2 tab, PO No Longer [place] [facility] Route: PO, Drug Active 2012 Medical [...] mL, Rate: IV No Longer [facility] Ringers 150 ml/hr, Active 2012 Medical Injection IV Infuse over: 6.7 Center 1,000 mL hr, Route: IV, kg, Total Volume: 1,000, Start date: 10/24/12 11:50:00, Duration: 30 day, Stop date: 11/23/12 11:49:00 lisinopril 20 mg, 1 tab, PO No Longer [facility] Route: PO, Drug Active 2012 [...] mg, 1 tab, PO No Longer Funez [facility] Fei Route: PO, Drug Active 2012 Medical form: TAB, Center Daily, Dosing Weight 78.2, kg, Priority: NOW, Start date: 10/24/12 10:53:00, Duration: 30 day, Stop date: 11/23/12 9:00:00 potassium 40 mEq, 2 tab, PO No Longer Funez [facility] Fei chloride Route: PO, Drug Active [...] Duration: 1 doses or times, Dose=2.2ml/kg, Max [id number] -- "To be infused by Radiology Staff ONLY"Dose=2.2ml/ kg, Max [id number] -- "To be infused by Radiology Staff [...] Duration: 1 doses or times, Dose=2.2ml/kg, Max [id number] -- "To be infused by Radiology Staff ONLY"Dose=2.2ml/ kg, Max [id number] -- "To be infused by Radiology Staff ONLY" Insulin 100 mL, Rate: IV No Longer [facility] (regular) 0.1units/kg/hour Active 2012 Medical Titrate [...] 1,000 mL, Rate: IV No Longer Isaac [facility] 0.9% IV 1,000 100 ml/hr, Active 2012 Medical mL + M.V.I.-12 Infuse over: Center 10 mL Daily + 10.1 hr, Route: folic acid IV 1 IV, kg, Total mg Daily + Volume: 1,011.2, thiamine IV 1 Start date: 10/23/12 8:41:00, Duration: 3 day, Stop date: 10/26/12 8:40:00 Insulin regular 100 mL, Rate: IVPB No Longer Isaac [facility] 100 unit + Start Insulin Active [...] gm, 50 mL, IVP No Longer Isaac [place] Syringe Route: IVP, Drug Active 2012 Medical Form: INJ, Center Dosing Weight 113.636, kg, PRN, PRN Blood Glucose Results, Start date: 10/23/12 8:17:00, Duration: 30 day, Stop date: 11/22/12 9:16:00 normal saline 1,000 mL, Rate: IV No Longer Isaac [place] 0.9% IV 1,000 150 ml/hr, Active 2012 Medical mL Infuse over: 6.7 Center hr, Route: IV, kg, Total Volume: 1,000, Start date: 10/23/12 5:07:00, Duration: 30 day, Stop date: 11/22/12 5:06:00 NS (Bolus) IV 1,000 mL, 0 IV No Longer Kristy [facility] ml/hr, Route: Active 2012 Medical IV, Drug Form: Center INJ, Dosing Weight 113.636, kg, ONCE, STAT, Start date: 10/23/12 5:06:00, Duration: 1 doses or times, Stop date: 10/23/12 5:06:00 hydrALAZINE 10 mg, 0.5 mL, IV No Longer Funez Kamel [facility] Route: IV, Drug Active 2012 Medical form: INJ, Q4H, Center Dosing Weight 113.636, kg, PRN Other -See Comment, Start date: 10/23/12 0:38:00, Duration: 30 day, Stop date: 11/22/12 0:37:00, hypertesnion acetaminophen 650 mg, 1 supp, [place] No Longer Kristy [place] Route: WI, Drug Active 2012 Medical form: SUPP, Q6H, Center Dosing Weight 113.636, kg, PRN Fever, Start date: 10/23/12 0:37:00, Duration: 30 day, Stop date: 11/22/12 0:36:00 Dilaudid 0.5 mg, 0.25 mL, IV No Longer Dalton [facility] Route: IV, Drug Active 2012 Medical form: INJ, Q2H, Center Dosing Weight 113.636, kg, PRN Pain, Start date: 10/23/12 0:37:00, Duration: 30 day, Stop date: 11/22/12 0:36:00 metoprolol 5 5 mg, 5 mL, IVP No Longer Dee Dee Jon [facility] mg/5 ml INJ Route: IVP, Drug Active 2012 Medical form: INJ, Q3H, Center Dosing Weight 113.636, kg, PRN Hypertension, Start date: 10/23/12 0:35:00, Duration: 30 day, Stop date: 11/22/12 0:34:00 Insulin regular 2 unit, 0.02 mL, SUB-Q No Longer Isaac [facility] Route: SUB-Q, Active 2012 Medical Drug form: SOLN, Center Sliding Scale, Dosing Weight 113.636, kg, PRN Blood Glucose Results, Start date: 10/23/12 0:26:00, Duration: 30 day, Stop date: 11/22/12 1:25:00 glucagon 1 mg, Route: IM, IM No Longer Isaac [place] Drug form: Active 2012 Medical PDR/INJ, PRN, Center Dosing Weight 113.636, kg, PRN Blood Glucose Results, Start date: 10/23/12 0:26:00, Duration: 30 day, Stop date: 11/22/12 1:25:00 Dextrose 50% 25 gm, 50 mL, IVP No Longer Isaac [place] Syringe Route: IVP, Drug Active 2012 Medical Form: INJ, Center Dosing Weight 113.636, kg, PRN, PRN Blood Glucose Results, Start date: 10/23/12 0:26:00, Duration: 30 day, Stop date: 11/22/12 1:25:00 Zofran ODT 8 mg, 1 tab, PO No Longer [place] Route: PO, Drug Active 2012 Medical form: TABDIS, Center Q8H, Dosing Weight 113.636, kg, PRN Nausea, Start date: 10/23/12 0:02:00, Stop date: 11/22/12 0:01:00 heparin 5,000 unit, SUB-Q No Longer Brian [place] Route: SUB-Q, Active 2012 Medical Q8H, Dosing Center Weight 113.636, kg, Start date: 10/23/12 0:00:00, Duration: 30 day, Stop date: 11/21/12 16:00:00 carvedilol 25 Daily, No Longer [place] mg oral tablet Substitution Active 2012 Medical Allowed [place] Diovan HCT 160 1 tab, PO, PO No Longer [place] mg-12.5 mg oral Daily, 30 tab, Active 2012 Medical tablet Substitution Center Allowed, Maintenance, TAB D5W 1/2NS + KCL 1,000 mL, Rate: IV No Longer Isaac [place] 20mEq/L 1000ml 150 ml/hr, Active 2012 Medical [...] Duration: 7 day, Stop date: 10/14/12 9:00:00 [place] 325 mg-10 15 mL, Route: PO No [...] mEq, 100 mL, IVPB No Longer Bagshahi [place] chloride Route: IVPB, Active 2012 Medical Drug form: INJ, Center ONCE, Dosing Weight 118.2, kg, Total dose=20 mEq, Start date: 10/07/12 7:53:00, Duration: 1 doses or times, Stop date: 10/07/12 7:53:00, For K=3.5 - 3.9 mEq/LFor K=3.5 - 3.9 mEq/L Blistex 1 appl, Route: TOP No Longer [facility] TOP, PRN, Drug Active 2012 Medical form: STIC PRN Center Other -See Comment, Start date: 10/06/12 22:48:00, Duration: 30 day, Stop date: 11/05/12 22:47:00 Blistex Lip Route: TOP, TOP No Longer [facility] [place] Dosing Weight Active 2012 Medical 118.2, kg, [...] mg, 5 mL, IVP No Longer Sushila [facility] mg/5 ml INJ Route: IVP, Drug [...] mg, 1 tab, PO No Longer Sushila [place] Route: PO, Drug Active 2012 Medical form: TAB, Q12H, Center Dosing Weight 118.2, kg, Start date: 10/04/12 21:00:00, Duration: 30 day, Stop date: 11/03/12 9:00:00 [place] 325 mg-10 30 mL, Route: PO No Longer [place] [facility] mg / 15 mL oral PO, Drug Form: Active 2012 Medical solution SOLN, Dosing Center Weight 118.2, kg, Q4H, PRN Pain Score 6-10, Start date: 10/04/12 17:20:00, Duration: 30 day, Stop date: 11/03/12 17:19:00 Diovan 160 mg, 1 tab, PO No Longer Sushila [facility] Route: PO, Drug Active 2012 Medical form: TAB, Center Daily, Dosing Weight 118.2, kg, Start date: 10/04/12 14:00:00, Duration: 30 day, Stop date: 11/03/12 9:00:00 Trandate 10 mg, 2 mL, IVP No Longer Low [place] Route: IVP, Drug Active 2012 Medical form: INJ, Q4H, Center PRN Elevated BP, Start date: 10/04/12 9:05:00, Duration: 30 day, Stop date: 11/03/12 9:04:00 hydrALAZINE 20 mg, 1 mL, IVP No Longer Low [facility] Route: IVP, Drug Active 2012 Medical [...] 25 gm, 50 mL, IVP No Longer [place] Fei Syringe Route: IVP, Drug Active 2012 Medical Form: INJ, Center Dosing Weight 118.2, kg, PRN, PRN Blood Glucose Results, Start date: 10/04/12 0:40:00, Duration: 30 day, Stop date: 11/03/12 0:39:00 glucagon 1 mg, Route: IM, IM No Longer [facility] Drug form: Active 2012 Medical PDR/INJ, PRN, Center Dosing Weight 118.2, kg, PRN Blood Glucose Results, Start date: 10/04/12 0:40:00, Duration: 30 day, Stop date: 11/03/12 0:39:00 Ofirmev 1,000 mg, 100 IV No Longer [facility] mL, Route: IV, Active 2012 Medical Drug form: INJ, Center Q6H, Start date: 10/03/12 18:00:00, Duration: 4 doses or times, Stop date: 10/04/12 12:00:00 Mefoxin 2 gm, Route: IVPB No Longer [facility] IVPB, Drug form: Active 2012 Medical INJ, [id number], [place] Start date: 10/03/12 16:00:00, Duration: 2 doses or times, Stop date: 10/04/12 0:00:00 Lopressor 5 mg, 5 mL, IV No Longer Low [facility] Route: IV, Drug Active 2012 Medical form: INJ, Q6H, Center Start date: 10/03/12 16:00:00, Duration: 30 day, Stop date: 11/02/12 10:00:00 Humulin R 100 10 unit, 0.1 mL, SUB-Q No Longer [facility] units/mL Route: SUB-Q, Active 2012 Medical injectable Drug form: [facility] solution TID-Before Meals, PRN Blood Glucose Results, Start date: 10/03/12 14:30:00, Duration: 30 day, Stop date: 11/02/12 14:29:00 Dextrose 50% in 50 mL, Route: IV No Longer [facility] 10/03[facility] Water IV IV, Start date: Active 2012 Medical 10/03/12 [place] 14:29:00, Duration: 30 day, Stop date: 11/02/12 14:28:00, PRN Blood Glucose Results Dextrose 50% in 25 mL, Route: IVP No Longer [facility] 10/03[facility] Water IV IVP, Start date: Active 2012 Medical 10/03/12 [place] 14:28:00, Duration: 30 day, Stop date: 11/02/12 14:27:00, PRN Blood Glucose Results Zofran 4 mg, 2 mL, IVP No Longer [place] Route: IVP, Drug Active 2012 Medical form: INJ, Q8H, Center PRN Nausea, Start date: 10/03/12 14:22:00, Duration: 30 day, Stop date: 11/02/12 14:21:00 naloxone 0.2 mg, 0.5 mL, IV No Longer [facility] [place] Route: IV, Drug Active 2012 Medical form: INJ, PRN, Center PRN Narcotic Reversal, Start date: 10/03/12 14:21:00, Duration: 30 day, Stop date: 11/02/12 14:20:00 hydromorphone IV, Start date: IV No Longer [place] 15 mg 10/03/12 Active 2012 Medical 14:19:00, Center Duration: 30, 30 ml, 118.2 Phenergan 12.5 mg, 0.5 mL, IVPB No Longer Bagshi [place] Route: IVPB, Active 2012 Medical Drug form: INJ, Center Q4H, PRN Nausea, Start date: 10/03/12 14:08:00, Duration: 30 day, Stop date: 11/02/12 14:07:00 Phenergan 12.5 mg, 0.5 mL, IM No Longer [facility] [place] Route: IM, Drug Active 2012 Medical form: INJ, Q4H, Center PRN Nausea, Start date: 10/03/12 14:07:00, Duration: 30 day, Stop date: 11/02/12 14:06:00 Benadryl 25 mg, 0.5 mL, IM No Longer Sushila [place] Route: IM, Drug Active 2012 Medical form: INJ, Center Bedtime, PRN Insomnia, Start date: 10/03/12 14:04:00, Duration: 30 day, Stop date: 11/02/12 14:03:00 Lactated 1,000 mL, Rate: IV No Longer [place] Ringers 125 ml/hr, Active 2012 Medical Injection IV Infuse over: 8 Center 1,000 mL hr, Route: IV, kg, Total Volume: 1,000, Start date: 10/03/12 14:00:00, Duration: 30 day, Stop date: 11/02/12 13:59:00 ondansetron 4 mg, 2 mL, IVP No Longer Jose [facility] Route: IVP, Drug Active 2012 Medical [...] mg, 0.25 mL, IVP No Longer Jose [facility] Route: IVP, Drug Active 2012 Medical [...] 2 gm, Route: IVPB No Longer Sushila [place] IVPB, Drug form: Active 2012 Medical INJ, PRE OP, Center Priority: STAT, Start date: 10/03/12 5:50:00, Duration: 1 day, Stop date: 10/04/12 5:49:00 Mobic 15 mg 10 mg, PO, PO Active [place] oral tablet Daily, 30 tab, 2012 Medical Substitution Center Allowed, TAB Zetia Daily, Active [facility] Substitution 2011 Medical Allowed Center Klor-Con 10 10 mEq, 1 tab, PO Active [facility] oral tablet, PO, Daily, 180 2011 Medical extended tab, Center release Substitution Allowed, ERTAB ferrous 324 mg, 1 tab, PO Active [facility] gluconate 324 PO, Daily, 100 2011 Medical mg oral tablet tab, Center Substitution Allowed, TAB Lasix 40 mg 40 mg, 1 tab, PO Active [facility] oral tablet PO, Daily, 30 2011 Medical tab, Center Substitution Allowed, TAB Cymbalta 60 mg 60 mg, 1 cap, PO Active [facility] oral delayed PO, BID, 30 cap, 2011 Medical release capsule Substitution Center Allowed, ECCAP Crestor 20 mg 20 mg, 1 tab, PO Active [facility] oral tablet PO, Daily, 30 2011 Medical tab, Center Substitution Allowed, TAB Flexeril 10 mg 10 mg, 1 tab, PO Active [facility] oral tablet PO, TID, PRN, 30 2011 Medical tab, for spasm, Center Substitution Allowed, TAB Lyrica 150 mg 150 mg, 1 cap, PO Active [facility] oral capsule PO, BID, 90 cap, 2011 Medical Substitution Center Allowed, CAP Klonopin 0.5 mg 0.5 mg, 1 tab, PO Active [place] oral tablet PO, TID, 2011 Medical Substitution Center Allowed, TAB Diovan 160 mg 160 mg, 1 tab, PO Active [facility] oral tablet PO, Daily, 30 2011 [...] Allowed NovoLog Substitution Active [place] Allowed 2011 [facility] Levemir FlexPen Substitution Active [facility] Allowed 2011 [facility] Allergies, Adverse Reactions, Alerts Substance Category Reaction Severity Reaction Status Date Comments Source type Reported Immunizations Immunization Date Given Site Status Last Updated Comments Source influenza virus 07/14/2013 completed Diony [facility] vaccine, [facility] inactivated Center pneumococcal 07/14/2013 completed Diony [facility] 23-valent vaccine [facility] Results Order Name Results Value Reference Date Interpretation Comments Source Range CHEMISTRY U Preg Negative Negative 08/13 Normal [facility] (08/13/2013 13:30:00) [place] URINALYSIS UA RBC 0-2 /HPF 0 - 2 08/[address] [facility] URINALYSIS UA WBC 3-5 /HPF None Seen 08/[address] [facility] URINALYSIS UA Sq Epi Few /LPF Few 08/[address] [facility] URINALYSIS Micro? Performed 08/13 Normal [facility] (08/13/2013 13:30:00) Center URINALYSIS UA Hyal Cast 0-2 0 - 2 08/13 Normal [facility] (08/13/2013 13:30:00) Center URINALYSIS UA Glucose 250 mg/dL Negative 08/13 [facility] URINALYSIS UA Blood Negative Negative 08/13 Normal [facility] (08/13/2013 13:30:00) Center URINALYSIS UA Ketones >=80 mg/dL Negative 08/13 [facility] URINALYSIS UA 0.2 EU/dL 0.1 - 1.0 08/13 Normal [facility] Urobilinogen /2012 [facility] URINALYSIS UA Nitrite Negative Negative 08/13 Normal [facility] (08/13/2013 13:30:00) [place] URINALYSIS UA Bili Small 1 Negative 08/13 ABN 1Result Comment: Interpret positive bilirubin results with caution. Confirmatory testing not possible due to the unavailability of reagent. Correlation with Medical *ABN* serum chemistry results recommended. [place] (08/13/2013 13:30:00) URINALYSIS UA Leuk Est Negative Negative 08/13 [facility] (08/13/2013 13:30:00) [place] URINALYSIS UA Protein Negative Negative 08/13 Normal [facility] (08/13/2013 13:30:00) [place] URINALYSIS UA pH 6.0 5.0 - 8.0 08/[address] [facility] URINALYSIS UA Spec Grav 1.020 <=1.030 08/[address] [facility] URINALYSIS UA Color Yellow Yellow 08/13 Medical *NA* [place] (08/13/2013 13:30:00) URINALYSIS UA Turbidity Clear Clear 08/13 Normal [facility] (08/13/2013 13:30:00) [place] CHEMISTRY BE Mark 1 mMol/L -2-2 - 2 08/[address] [facility] CHEMISTRY pO2 Mark 29 mm[Hg] 20 - 49 08/[address] [facility] CHEMISTRY O2 Sat Mark 55.9 % 40.0 - 08/13 Normal [facility] 70.0 [facility] CHEMISTRY Temp Mark 37.0 Abby 08/13 [facility] CHEMISTRY HCO3 Mark 26 mMol/L 22 - [address] [facility] CHEMISTRY pCO2 Mark 41 mm[Hg] 38 - 52 08/[address] [facility] CHEMISTRY pH Mark 7.41 7.28 - 08/13 Normal [facility] [address].42 [facility] CHEMISTRY eGFR 60 08/13 2Result Comment: The eGFR is calculated using the CKD-EPI formula. In most young, healthy individuals the eGFR will be >90 mL/ min/1.73m2. The eGFR declines with age. An eGFR of 60-89 may be normal in [facility] mL/min/1. some populations, particularly the elderly, for whom the CKD-EPI formula has not been extensively validated. Use of the eGFR is not recommended in the following populations: [address] Individuals with unstable creatinine concentrations, including [...] 25 meq/L 24 - 32 08/[address] [facility] CHEMISTRY Chloride Lvl 98 meq/L 95 - 109 08/[address] [facility] CHEMISTRY BUN 9 mg/dL 7 - 22 08/[address] [facility] CHEMISTRY Calcium Lvl 9.1 mg/dL 8.5 - 10.5 08/[address] [facility] CHEMISTRY Glucose Lvl 301 mg/dL 70 - 99 08/13 [place] 3Interpretive Data: Adult reference range values reflect the clinical guidelines of the [place] [employer]. [facility] CHEMISTRY Potassium Lvl 3.8 meq/L 3.5 - 5.1 08/[address] [facility] CHEMISTRY Sodium Lvl 134 meq/L 135 - 145 08/[address] [facility] CHEMISTRY Creatinine 1.1 mg/dL 0.5 - 1.4 08/[facility] CHEMISTRY Bili Total 0.6 mg/dL 0.2 - 1.3 08/[address] [facility] CHEMISTRY ASPARTATE 17 unit/L 0 - 37 08/13 Normal [facility] TRANSAMINASE [facility] CHEMISTRY ALANINE 22 unit/L 0 - 65 08/13 Normal [facility] AMINOTRANSFER [facility] CHEMISTRY Albumin Lvl 3.5 g/dL 3.5 - 5.0 08/[address] [facility] CHEMISTRY Alk Phos 130 unit/L 39 - 136 08/[address] [facility] CHEMISTRY Total Protein 7.8 g/dL 6.4 - 8.4 08/[address] [facility] CHEMISTRY B/C Ratio 8 6 - 25 08/[address] [facility] CHEMISTRY AGAP 14.8 meq/L 10.0 - 12 Normal [facility] 20.[address] [facility] CHEMISTRY Globulin 4.3 g/dL 2.0 - 4.0 08/[address] [facility] CHEMISTRY A/G Ratio 0.8 0.7 - 1.[address] [facility] HEMATOLOGY Monocytes # 0.8 K/CMM 0.0 - 0.[address] [facility] HEMATOLOGY Eosinophils # 0.0 K/CMM 0.0 - 0.[address] [facility] HEMATOLOGY Basophils # 0.0 K/CMM 0.0 - 0.2 08/[address] [facility] HEMATOLOGY Basophils 0.1 % 0.0 - 1.0 08/[address] [facility] HEMATOLOGY Lymphocytes # 1.4 K/CMM 1.0 - 5.5 08/[address] [facility] HEMATOLOGY Segs-Bands # 10.5 K/CMM 1.5 - 8.1 08/[address] [facility] HEMATOLOGY Monocytes 6.3 % 2.0 - 12.0 08/[address] [facility] HEMATOLOGY Eosinophils 0.2 % 0.0 - 4.0 08/[address] [facility] HEMATOLOGY Lymphocytes 11.3 % 20.0 - 1208 LOW [facility] 40.0 /2012 [facility] HEMATOLOGY Segs 82.1 % 45.0 - 1208 [facility] 75.0 /2012 [facility] HEMATOLOGY WBC X 10x3 12.7 K/CMM 3.7 - 10.4 08/[address] [facility] HEMATOLOGY Hct 37.0 % 36.0 - 12/08 Normal [facility] 48.[address] [facility] HEMATOLOGY RBC X 10x6 4.36 M/CMM 4.20 - 12/08 Normal [facility] 5.40 /2012 [facility] HEMATOLOGY Hgb 12.6 g/dL 12.0 - 1208 Normal [facility] 16.0 /2012 [facility] HEMATOLOGY MCV 84.8 fL 81.0 - 1208 Normal [facility] 99.0 /2012 [facility] HEMATOLOGY MCH 28.8 pg 27.0 - 12 Normal [facility] 31.0 /2012 [facility] HEMATOLOGY MCHC 34.0 g/dL 32.0 - 12 Normal [facility] [address] [facility] HEMATOLOGY Platelet 238 K/CMM 133 - [address] [facility] HEMATOLOGY MPV 9.5 fL 7.4 - 10.[address] [facility] HEMATOLOGY RDW 13.1 % 11.5 - 08/13 Normal [facility] 14.5 Medical Center BEDSIDE Gluc POC Notify 07/26 [facility] GLUCOSE Comment 1 RN/MD /2013 Medical TESTING Center BEDSIDE Glucose POC 274 mg/dL 70 - 99 07/26 HI 1Interpretive [facility] GLUCOSE Data: Medical TESTING Center Upper Reportable Limit: 200 mg/dL. BEDSIDE Glucose POC 146 mg/dL 70 - 99 07/15 [place] 2Interpretive [facility] GLUCOSE Data: Medical TESTING Center Upper Reportable Limit: 200 mg/dL. BEDSIDE Gluc POC Notify 07/15 [facility] GLUCOSE Comment 1 RN/MD /2013 [facility] TESTING Center BEDSIDE Glucose POC 140 mg/dL 70 - 99 07/14 [place] 3Interpretive [facility] GLUCOSE Data: Medical TESTING Center Upper Reportable Limit: 200 mg/dL. BEDSIDE Gluc POC Notify 07/14 [facility] GLUCOSE Comment 1 RN/ 2013 [facility] TESTING Center BEDSIDE Gluc POC Notify 07/14 [facility] GLUCOSE Comment 1 RN/ /2012 [facility] TESTING Center BEDSIDE Glucose POC 44 mg/dL - 07/14 LOW 4Interpretive [facility] GLUCOSE Data: Medical TESTING Center Upper Reportable Limit: 200 mg/dL. IMMUNOLOGY [place]-HIV Negative Negative 07/14 [facility] 09/07 [facility] *NA* [place] (07/14/2013 00:27:00) IMMUNOLOGY [place]-Hep C Negative Negative 07/14 [facility]* [place] (07/14/2013 00:27:00) CHEMISTRY eGFR 109 07/13 5Result Comment: The eGFR is calculated using the CKD-EPI formula. In most young, healthy individuals the eGFR will be >90 mL/ min/1.73m2. The eGFR declines with age. An eGFR of 60-89 may be normal in [facility] mL/min/1.7 some populations, particularly the elderly, for whom the CKD-EPI formula has not been extensively validated. Use of the eGFR is not recommended in the following populations: [address] Center Individuals with unstable creatinine concentrations, [...] 135 meq/L 135 - 145 07/[address] [facility] CHEMISTRY Chloride Lvl 95 meq/L 95 - 109 07/[address] [facility] CHEMISTRY AGAP 16.5 meq/L 10.0 - 07/13 Normal [facility] [address] [facility] CHEMISTRY Glucose Lvl 322 mg/dL 70 - 99 07/13 [place] 8Interpretive Data: Adult reference range values reflect the clinical guidelines of the [place] [employer]. [facility] CHEMISTRY Creatinine 0.6 mg/dL 0.5 - 1.4 07/13 [address] [facility] CHEMISTRY BUN 6 mg/dL 7 - 22 07/13 LOW [facility] CHEMISTRY Calcium Lvl 8.6 mg/dL 8.5 - 10.5 07/[address] [facility] CHEMISTRY CO2 27 meq/L 24 - 32 07/[address] [facility] CHEMISTRY Potassium Lvl 3.5 meq/L 3.5 - 5.1 07/13 Normal [facility] INFECTIOUS C difficile Negative 1 Negative 07/13 Normal 1Interpretive Data: [employer] Clostridium difficile assay utilizes loop-mediated isothermal DNA amplification (LAMP) technology to detect a 204 bp region of the tcdA gene within the PaLoc gene [facility] segment present in all known toxigenic C. difficile strains. [facility] (07/13/2013 00:00:59) [place] The assay utilizes FDA cleared IVD reagents. Performance characteristics have been verified by the Molecular Diagnostic Laboratory within the [facility]. The Molecular Diagnostic Laboratory is authorized under the Clinical Laboratory Improvement Amendment of 1988 (CLIA-88) to perform high complexity testing. CHEMISTRY Lactic Acid 1.9 mMol/L 0.5 - 2.2 07/12 Normal [facility] CHEMISTRY eGFR 88 07/12 6Result Comment: The eGFR is calculated using the CKD-EPI formula. In most young, healthy individuals the eGFR will be >90 mL/ min/1.73m2. The eGFR declines with age. An eGFR of 60-89 may be normal in [facility] mL/min/1. some populations, particularly the elderly, for whom the CKD-EPI formula has not been extensively validated. Use of the eGFR is not recommended in the following populations: [address] Individuals with unstable creatinine concentrations, including [...] CHEMISTRY Troponin-I null 0.00 - 07/12 Normal [facility] [address] [facility] HEMATOLOGY Basophils # 0.0 K/CMM 0.0 - 0.2 07/[address] [facility] HEMATOLOGY Eosinophils # 0.3 K/CMM 0.0 - 0.5 07/[address] [facility] HEMATOLOGY Monocytes # 1.0 K/CMM 0.0 - 0.8 07/[address] [facility] HEMATOLOGY Lymphocytes # 3.0 K/CMM 1.0 - 5.5 07/[address] [facility] HEMATOLOGY Segs-Bands # 6.4 K/CMM 1.5 - 8.1 07/[address] [facility] HEMATOLOGY Basophils 0.4 % 0.0 - 1.0 07/[address] [facility] HEMATOLOGY Eosinophils 2.8 % 0.0 - 4.0 07/[address] [facility] HEMATOLOGY Plt Morph Normal 07/12 Normal [facility] (07/12/2013 16:29:10) [place] HEMATOLOGY RBC Morph Normal 07/12 [facility] (07/12/2013 16:29:10) Center HEMATOLOGY Monocytes 9.4 % 2.0 - 12.0 07/[address] [facility] HEMATOLOGY Lymphocytes 27.9 % 20.0 - 07/[address] [place] [address] [facility] HEMATOLOGY Segs 59.5 % 45.0 - 07/12 [facility] [address] [facility] HEMATOLOGY MCV 85.3 fL 81.0 - 07/12 [facility] [address] [facility] HEMATOLOGY Hct 41.2 % 36.0 - 07/[address] [place] [address] [facility] HEMATOLOGY Hgb 13.6 g/dL 12.0 - 07/12 Normal [facility] 16.[address] [facility] HEMATOLOGY RBC X 10x6 4.84 M/CMM 4.20 - 11 Normal [facility] 5.40 /2012 Medical [place] HEMATOLOGY MPV 9.4 fL 7.4 - 10.4 07/[address] [facility] HEMATOLOGY Platelet 225 K/CMM 133 - 450 07/12 Normal Medical [place] HEMATOLOGY MCH 28.1 pg 27.0 - 07/12 Normal [facility] 31.0 Medical [place] HEMATOLOGY MCHC 33.0 g/dL 32.0 - 07/12 Normal [facility] [address] [facility] HEMATOLOGY RDW 12.7 % 11.5 - 07/12 Normal [facility] 14.5 [facility] HEMATOLOGY WBC X 10x3 10.7 K/CMM 3.7 - 10.4 07/[address] [facility] CHEMISTRY AGAP 12.4 meq/L 10.0 - 07/12 Normal [facility] . [facility] CHEMISTRY Calcium Lvl 8.8 mg/dL 8.5 - 10.5 07/[address] [facility] CHEMISTRY Chloride Lvl 102 meq/L 95 - 109 07/[address] [facility] CHEMISTRY Potassium Lvl 3.4 meq/L 3.5 - 5.1 07/[address] [facility] CHEMISTRY CO2 30 meq/L 24 - 32 07/[address] [facility] CHEMISTRY Sodium Lvl 141 meq/L 135 - 145 07/[address] [facility] CHEMISTRY Creatinine 0.8 mg/dL 0.5 - 1.4 07/12 [address] [facility] CHEMISTRY BUN 6 mg/dL 7 - 22 07/[address] [facility] CHEMISTRY Glucose Lvl 163 mg/dL 70 - 99 07/12 [place] 9Interpretive Data: Adult reference range values reflect the clinical guidelines of the [place] [employer]. Medical Center IMMUNOLOGY CDC-HIV 1/2 Negative Negative 07/12 Medical *NA* Center (07/12/2013 16:02:06) CHEMISTRY Calcium Lvl 8.4 mg/dL 8.5 - 10.5 07/[address] [facility] CHEMISTRY AGAP 10.4 meq/L 10.0 - 07/[address] [facility] CHEMISTRY eGFR 76 07/12 7Result Comment: The eGFR is calculated using the CKD-EPI formula. In most young, healthy individuals the eGFR will be >90 mL/ min/1.73m2. The eGFR declines with age. An eGFR of 60-89 may be normal in [facility] mL/min/1.7 some populations, particularly the elderly, for whom the CKD-EPI formula has not been extensively validated. Use of the eGFR is not recommended in the following populations: Medical [facility] Individuals with unstable creatinine concentrations, [...] 140 meq/L 135 - 145 07/[address] [facility] CHEMISTRY Chloride Lvl 103 meq/L 95 - 109 07/[address] [facility] CHEMISTRY Potassium Lvl 3.4 meq/L 3.5 - 5.1 07/[address] [facility] CHEMISTRY BUN 9 mg/dL 7 - 22 07/[address] [facility] CHEMISTRY Creatinine 0.9 mg/dL 0.5 - 1.4 07/12 Normal [facility] CHEMISTRY Glucose Lvl 296 mg/dL 70 - 99 07/12 [place] 10Interpretive Data: Adult reference range values reflect the clinical guidelines of the [place] [employer]. [facility] CHEMISTRY CO2 30 meq/L 24 - 32 07/[address] [facility] CHEMISTRY Troponin-I null 0.00 - 11 Normal [facility] [address] [facility] CHEMISTRY Lipase Lvl 76 unit/L 73 - 393 07/[address] [facility] CHEMISTRY B/C Ratio 11 6 - 25 07/[address] [facility] CHEMISTRY ASPARTATE 25 unit/L 0 - 37 07/12 Normal [facility] TRANSAMINASE [facility] CHEMISTRY Bili Total 0.4 mg/dL 0.2 - 1.3 07/[address] [facility] CHEMISTRY Alk Phos 119 unit/L 39 - 136 07/[address] [facility] CHEMISTRY Albumin Lvl 3.9 g/dL 3.5 - 5.0 07/[address] [facility] CHEMISTRY ALANINE 29 unit/L 0 - 65 07/12 Normal [facility] AMINO [facility] CHEMISTRY Total Protein 8.1 g/dL 6.4 - 8.4 07/[address] [facility] CHEMISTRY Globulin 4.2 g/dL 2.0 - 4.0 07/[address] [facility] CHEMISTRY A/G Ratio 0.9 0.7 - 1.6 07/[address] [facility] HEMATOLOGY Monocytes # 0.6 K/CMM 0.0 - 0.8 07/12 Normal [facility] HEMATOLOGY Segs-Bands # 9.5 K/CMM 1.5 - 8.1 07/12 HI [facility] HEMATOLOGY Eosinophils # 0.2 K/CMM 0.0 - 0.5 07/[address] [facility] HEMATOLOGY Lymphocytes # 2.1 K/CMM 1.0 - 5.5 07/12 Normal [facility] HEMATOLOGY Basophils 0.2 % 0.0 - 1.0 07/[address] [facility] HEMATOLOGY Neut Vac Slight None Seen 07/12 ABN [facility] *ABN* [place] (07/12/2013 03:30:00) HEMATOLOGY Hypochrom Slight None Seen 07/12 Normal [facility] (07/12/2013 03:30:00) [place] HEMATOLOGY Basophils # 0.0 K/CMM 0.0 - 0.2 07/[address] [facility] HEMATOLOGY RBC Morph Normal 07/12 Normal [facility] (07/12/2013 03:30:00) [place] HEMATOLOGY Eosinophils 1.6 % 0.0 - 4.0 07/[address] [facility] HEMATOLOGY Monocytes 4.6 % 2.0 - 12.0 07/[address] [facility] HEMATOLOGY Segs 76.6 % 45.0 - 07/12 HI [facility] 75.[address] [facility] HEMATOLOGY Lymphocytes 17.0 % 20.0 - 07/12 LOW [facility] [address] [facility] HEMATOLOGY Plt Morph Normal 07/12 Normal [facility] (07/12/2013 03:30:00) [place] HEMATOLOGY MCHC 32.4 g/dL 32.0 - 07/12 Normal [facility] 36.[address] [facility] HEMATOLOGY MCH 27.4 pg 27.0 - 11/06 Normal [facility] 31.0 /2012 [facility] HEMATOLOGY RDW 12.7 % 11.5 - 07/12 Normal [facility] 14.5 /2012 [facility] HEMATOLOGY Platelet 235 K/CMM 133 - 450 07/[address] [facility] HEMATOLOGY MPV 9.4 fL 7.4 - 10.4 07/[address] [facility] HEMATOLOGY Hgb 12.9 g/dL 12.0 - 07/12 Normal [facility] 16.[address] [facility] HEMATOLOGY MCV 84.3 fL 81.0 - 07/12 Normal [facility] 99.0 /2012 [facility] HEMATOLOGY Hct 39.6 % 36.0 - 07/12 Normal [facility] [address] [facility] HEMATOLOGY WBC X 10x3 12.4 K/CMM 3.7 - 10.4 07/[address] [facility] HEMATOLOGY RBC X 10x6 4.70 M/CMM 4.20 - 07/12 Normal [facility] 5.40 /2012 [facility] CHEMISTRY U Preg Negative Negative 07/12 Normal [facility] (07/12/2013 03:00:00) Center URINALYSIS UA Leuk Est Negative Negative 07/12 Normal [facility] (07/12/2013 03:00:00) Center URINALYSIS UA 0.2 EU/dL 0.1 - 1.0 07/12 Normal [facility] Urobilinogen [facility] URINALYSIS UA Nitrite Negative Negative 07/12 Normal [facility] (07/12/2013 03:00:00) [place] URINALYSIS UA Bili Negative Negative 07/12 [facility] *NA* Center (07/12/2013 03:00:00) URINALYSIS UA pH 6.0 5.0 - 8.0 07/[address] [facility] URINALYSIS UA Protein Negative Negative 07/12 Normal [facility] mg/dL [facility] URINALYSIS UA Glucose >=1000 Negative 07/12 ABN [facility] mg/dL [facility] URINALYSIS UA Ketones 15 mg/dL Negative 07/[address] [facility] URINALYSIS UA Spec Grav 1.020 <=1.030 07/[address] [facility] URINALYSIS UA Blood Negative Negative 07/12 Normal [facility] (07/12/2013 03:00:00) Center URINALYSIS UA Color Yellow Yellow 07/12 [facility] *NA* [place] (07/12/2013 03:00:00) URINALYSIS UA Turbidity Clear Clear 07/12 Normal [facility] (07/12/2013 03:00:00) [place] URINALYSIS UA RBC 0-2 /HPF 0 - 2 07/12 Normal [facility] URINALYSIS UA WBC 3-5 /HPF None Seen 07/12 Normal [facility] URINALYSIS UA Sq Epi Many /LPF Few 07/12 ABN [facility] URINALYSIS UA Bacteria Few /HPF None Seen 07/12 Normal [facility] URINALYSIS UA [place] Yeast Moderate None Seen 07/12 [facility] URINALYSIS Micro? Performed 07/12 Normal [facility] (07/12/2013 03:00:00) [place] Abdomen/Pel Abdomen/Pelvi EXAM: CT ABDOMEN WITH CONTRAST 07/12 - [facility] vis w s w contrast - Medical contrast CT CT EXAM: CT PELVIS WITH CONTRAST This report was dictated by a Travel Med Surg Rn/Fellow. I have personally reviewed the images as [...] mg/dL 70 - 99 04/03 HI 1Interpretive [facility] GLUCOSE Lifscn /2012 Data: [facility] Upper Reportable Limit: 200 mg/dL. BEDSIDE Comment2 Sliding 04/03 NA [facility] GLUCOSE Scale /2012 [facility] BEDSIDE Comment1 Notify 04/03 NA [facility] GLUCOSE RN/ /2012 [facility] BEDSIDE Comment1 Notify 04/03 NA [facility] GLUCOSE RN/MD /2012 [facility] BEDSIDE Gluc POC 198 mg/dL 70 - 99 04/03 HI 2Interpretive [facility] GLUCOSE Lifscn Data: [facility] [place] Upper Reportable Limit: 200 mg/dL. BEDSIDE Comment2 Sliding 04/03 NA [facility] GLUCOSE Scale /2012 [facility] Abdomen 2 Abdomen 2 EXAM: XR ABDOMEN 1 VIEW 04/03 - [facility] views views - [facility] DATE: March 25 90,013. Read by: [...] Cho MD. BEDSIDE Comment2 Sliding 04/03 NA [facility] GLUCOSE Scale /2012 [facility] BEDSIDE Comment1 Notify 04/03 NA [facility] GLUCOSE RN/ /2012 [facility] [place] BEDSIDE Gluc POC 182 mg/dL 70 - 99 04/03 HI 3Interpretive [facility] GLUCOSE Lifscn Data: [facility] Upper Reportable Limit: 200 mg/dL. CHEMISTRY Troponin-T null 0.000 - 04/03 Normal [facility] [address] [facility] CHEMISTRY Troponin-I null 0.00 - 04/03 Normal [facility] 0.40 [facility] CHEMISTRY Total CK 41 unit/L 12 - 191 04/[address] [facility] CHEMISTRY Creatinine 0.6 mg/dL 0.5 - 1.4 04/03 Normal [facility] Lvl [facility] CHEMISTRY Sodium Lvl 137 meq/L 135 - 145 04/[address] [facility] CHEMISTRY CO2 25 meq/L 24 - 32 04/[address] [facility] CHEMISTRY Calcium Lvl 8.2 mg/dL 8.5 - 10.5 04/[address] [facility] CHEMISTRY AGAP 17.9 meq/L 10.0 - 04/03 Normal [facility] 20.0 [facility] CHEMISTRY Potassium Lvl 3.9 meq/L 3.5 - 5.1 04/[address] [facility] CHEMISTRY Chloride Lvl 98 meq/L 95 - 109 04/[address] [facility] CHEMISTRY Glucose Lvl 266 mg/dL 70 - 99 04/03 HI 6Interpretive Data: Adult reference range values reflect the clinical guidelines of the [place] [employer]. [facility] CHEMISTRY BUN 3 mg/dL 7 - 22 04/[address] [facility] CHEMISTRY eGFR 109 04/03 NA 4Result Comment: The eGFR is calculated using the CKD-EPI formula. In most young, healthy individuals the eGFR will be > 90 mL/min/1.73m2. The eGFR declines with age. An eGFR of 60-89 may be normal in [facility] mL/min/1.7 some populations, particularly the elderly, for whom the CKD-EPI formula has not been extensively validated. Use of the eGFR is not recommended in the following populations: [place] [address] [facility] Individuals with unstable creatinine concentrations, including [...] HEMATOLOGY Hgb 10.5 g/dL 12.0 - 04/03 [facility] [address] [facility] HEMATOLOGY RBC 4.22 M/CMM 4.20 - 04/03 Normal [facility] [address].40 [facility] HEMATOLOGY WBC 10.3 K/CMM 3.7 - 10.4 04/[address] [facility] HEMATOLOGY Hct 33.5 % 36.0 - 04/03 [facility] [address] [facility] HEMATOLOGY MPV 8.8 fL 7.4 - 10.4 04/[address] [facility] HEMATOLOGY Platelet 276 K/CMM 133 - 450 04/[address] [facility] HEMATOLOGY RDW 18.7 % 11.5 - 04/03 HI [facility] 14.5 [facility] HEMATOLOGY MCHC 31.2 g/dL 32.0 - 04/03 [facility] [address] [facility] HEMATOLOGY MCH 24.8 pg 27.0 - 04/03 [facility] [address] [facility] HEMATOLOGY MCV 79.5 fL 81.0 - 04/03 [facility] 99.0 /2012 [facility] HEMATOLOGY Segs 58.6 % 45.0 - 04/[address] [place] [address] [facility] HEMATOLOGY Lymphocytes 29.9 % 20.0 - 04/[address] [facility] HEMATOLOGY Basophils 1.3 % 0.0 - 1.0 04/[address] [facility] HEMATOLOGY Lymphocytes # 3.1 K/CMM 1.0 - 5.5 04/[address] [facility] HEMATOLOGY Segs-Bands # 6.0 K/CMM 1.5 - 8.1 04/[address] [facility] HEMATOLOGY Eosinophils 2.8 % 0.0 - 4.0 04/[address] [facility] HEMATOLOGY Eosinophils # 0.3 K/CMM 0.0 - 0.5 04/[address] [facility] HEMATOLOGY Monocytes # 0.8 K/CMM 0.0 - 0.8 04/[address] [facility] HEMATOLOGY Basophils # 0.1 K/CMM 0.0 - 0.2 04/[address] [facility] HEMATOLOGY Monocytes 7.4 % 2.0 - 12.0 04/[address] [facility] CHEMISTRY Troponin-I null 0.00 - 04/03 Normal [facility] [address] [facility] CHEMISTRY Total CK 51 unit/L 04/[address] [facility] CHEMISTRY Troponin-T null 0.000 - 04/[address] [facility] CHEMISTRY Bili Direct 0.1 mg/dL 0.0 - 0.3 04/[address] [facility] CHEMISTRY Bili Total 0.4 mg/dL 0.2 - 1.3 04/[address] [facility] CHEMISTRY Bili Indirect 0.3 mg/dL 0.0 - 1.0 04/[address] [facility] CHEMISTRY ALT 22 unit/L 0 - 65 04/[address] [facility] CHEMISTRY AST 31 unit/L 0 - [address] [facility] CHEMISTRY Lipase Lvl 54 unit/L 73 - 393 04/[address] [facility] CHEMISTRY Troponin-I null 0.00 - 04/[address] [place] [address] [facility] CHEMISTRY Total CK 24 unit/L 12 - 191 04/[address] [facility] CHEMISTRY AGAP 17.5 meq/L 10.0 - 04/02 Normal [facility] 20.[address] [facility] CHEMISTRY eGFR 88 04/02 NA 5Result Comment: The eGFR is calculated using the CKD-EPI formula. In most young, healthy individuals the eGFR will be > 90 mL/min/1.73m2. The eGFR declines with age. An eGFR of 60-89 may be normal in [facility] mL/min/1. some populations, particularly the elderly, for whom the CKD-EPI formula has not been extensively validated. Use of the eGFR is not recommended in the following populations: [address] Individuals with unstable creatinine concentrations, including [...] 0.8 mg/dL 0.5 - 1.4 04/02 Normal [facility] Lvl [facility] CHEMISTRY Potassium Lvl 3.5 meq/L 3.5 - 5.1 04/[address] [facility] CHEMISTRY Chloride Lvl 97 meq/L 95 - 109 04/[address] [facility] CHEMISTRY Glucose Lvl 163 mg/dL 70 - 99 04/02 HI 7Interpretive Data: Adult reference range values reflect the clinical guidelines of the [place] [employer]. [facility] CHEMISTRY BUN 2 mg/dL 7 - 22 04/[address] [facility] CHEMISTRY Sodium Lvl 136 meq/L 135 - 145 04/[address] [facility] CHEMISTRY Calcium Lvl 8.6 mg/dL 8.5 - 10.5 04/[address] [facility] CHEMISTRY CO2 25 meq/L 24 - 32 04/[address] [facility] HEMATOLOGY Platelet 378 K/CMM 133 - 450 04/[address] [facility] HEMATOLOGY MCHC 33.4 g/dL 32.0 - 04/02 Normal [facility] 36.0 [facility] HEMATOLOGY RDW 17.3 % 11.5 - 04/02 HI [facility] 14.5 [facility] HEMATOLOGY MCV 76.0 fL 81.0 - 04/02 [facility] 99.0 /2012 [facility] HEMATOLOGY MCH 25.4 pg 27.0 - 04/02 [facility] 31.0 /2012 [facility] HEMATOLOGY Hct 34.2 % 36.0 - 04/02 [facility] 48.0 /2012 [facility] HEMATOLOGY RBC 4.50 M/CMM 4.20 - 04/02 [facility] 5.40 /2012 [facility] HEMATOLOGY Hgb 11.4 g/dL 12.0 - 04/02 [facility] [address] [facility] HEMATOLOGY WBC 9.0 K/CMM 3.7 - 10.4 04/[address] [facility] HEMATOLOGY MPV 8.4 fL 7.4 - 10.4 04/[address] [facility] HEMATOLOGY Microcyte 2+ None Seen 04/02 ABN [facility]* [place] (04/02/2013 17:09:00) HEMATOLOGY Basophils # 0.1 K/CMM 0.0 - 0.2 04/[address] [facility] HEMATOLOGY Eosinophils # 0.1 K/CMM 0.0 - 0.5 04/[address] [facility] HEMATOLOGY Monocytes # 0.7 K/CMM 0.0 - 0.8 04/[address] [facility] HEMATOLOGY Lymphocytes # 1.4 K/CMM 1.0 - 5.5 04/[address] [facility] HEMATOLOGY Segs-Bands # 6.7 K/CMM 1.5 - 8.1 04/[address] [facility] HEMATOLOGY Basophils 1.3 % 0.0 - 1.0 04/[address] [facility] HEMATOLOGY Lymphocytes 15.2 % 20.0 - 04/02 [facility] [address] [facility] HEMATOLOGY Segs 74.3 % 45.0 - 04/02 [facility] [address] [facility] HEMATOLOGY Eosinophils 1.6 % 0.0 - 4.0 04/[address] [facility] HEMATOLOGY Monocytes 7.6 % 2.0 - 12.0 04/[address] [facility] Chest 1view Chest 1view EXAM: XR CHEST 1 VIEW 04/02 - - [facility] DATE: 2013-04-02 1638 hours Read by: Francheska Hall Date/time: 04/02/13 17:06 Electronically Signed by: Francheska [...] mg/dL 70 - 99 03/09 HI 1Interpretive [facility] GLUCOSE Lifscn Data: [facility] Upper Reportable Limit: 200 mg/dL. BEDSIDE Comment1 Notify 03/09 NA [facility] GLUCOSE RN/ /2012 [facility] CHEMISTRY eGFR 88 03/09 NA 4Result Comment: The eGFR is calculated using the CKD-EPI formula. In most young, healthy individuals the eGFR will be > 90 mL/min/1.73m2. The eGFR declines with age. An eGFR of 60-89 may be normal in [facility] mL/min/1.7 some populations, particularly the elderly, for whom the CKD-EPI formula has not been extensively validated. Use of the eGFR is not recommended in the following populations: [place] [address] [facility] Individuals with unstable creatinine concentrations, including [...] 7 mg/dL 7 - 22 03/[address] [facility] CHEMISTRY Creatinine 0.8 mg/dL 0.5 - 1.4 03/09 Normal [facility] Lvl [facility] CHEMISTRY Sodium Lvl 138 meq/L 135 - 145 03/[address] [facility] CHEMISTRY Potassium Lvl 4.7 meq/L 3.5 - 5.1 03/[address] [facility] CHEMISTRY Chloride Lvl 104 meq/L 95 - 109 03/[address] [facility] CHEMISTRY CO2 23 meq/L 24 - 32 03/09 [address] [facility]2012 [facility] CHEMISTRY Bili Total 0.2 mg/dL 0.2 - 1.3 / Normal [facility] CHEMISTRY AST 22 unit/L 0 - 37 03/09 Normal [facility]2012 [facility] CHEMISTRY Total Protein 4.8 g/dL 6.4 - 8.4 07 LOW [facility]2012 [facility] CHEMISTRY Calcium Lvl 7.4 mg/dL 8.5 - 10.5 03/09 LOW [facility]2012 [facility] CHEMISTRY Albumin Lvl 1.9 g/dL 3.5 - 5.0 03/09 LOW [facility]2012 [facility] CHEMISTRY Glucose Lvl 192 mg/dL 70 - 99 07 HI 7Interpretive Data: Adult reference range values reflect the clinical guidelines of the [place] [employer]. [facility] CHEMISTRY Alk Phos 162 unit/L 39 - 136 03/[address] [facility] CHEMISTRY ALT 18 unit/L 0 - 65 03/09 Normal [facility] CHEMISTRY A/G Ratio 0.7 0.7 - 1.6 03/[address] [facility] CHEMISTRY Globulin 2.9 g/dL 2.0 - 4.0 03/09 Normal [facility] CHEMISTRY AGAP 15.7 meq/L 10.0 - 07 Normal [facility] 20.0 [facility] CHEMISTRY B/C Ratio 9 6 - 25 03/09 Normal [facility] HEMATOLOGY Eosinophils 1.9 % 0.0 - 4.0 03/09 Normal [facility] HEMATOLOGY Basophils 1.0 % 0.0 - 1.0 03/09 Normal [facility] HEMATOLOGY Anisocyte 1+ None Seen 03/09 ABN Medical *ABN* Center (03/09/2013 01:09:00) HEMATOLOGY Lymphocytes # 2.0 K/CMM 1.0 - 5.5 07/ Normal [facility] HEMATOLOGY Monocytes # 0.6 K/CMM 0.0 - 0.8 07/ Normal [facility] HEMATOLOGY Eosinophils # 0.1 K/CMM 0.0 - 0.5 / Normal [facility] HEMATOLOGY Basophils # 0.1 K/CMM 0.0 - 0.2 07/ Normal [facility] HEMATOLOGY Segs-Bands # 4.6 K/CMM 1.5 - 8.[address] [facility] HEMATOLOGY Segs 62.8 % 45.0 - 07/ Normal [place] 75.0 /2012 [facility] HEMATOLOGY Lymphocytes 26.4 % 20.0 - 07/04 Normal [place] 40.0 /2012 [facility] HEMATOLOGY Monocytes 7.9 % 2.0 - 12.0 07/ Normal [facility] HEMATOLOGY RDW 20.7 % 11.5 - 07/04 [facility] [place] 14.5 /2012 [facility] HEMATOLOGY Platelet 304 K/CMM 133 - [address] [facility] HEMATOLOGY MPV 8.0 fL 7.4 - 10.[address] [facility] HEMATOLOGY Hct 24.9 % 36.0 - 07/ LOW [place] 48.0 /2012 [facility] HEMATOLOGY MCV 79.3 fL 81.0 - 07 [facility] [place] 99.0 /2012 [facility] HEMATOLOGY MCH 24.7 pg 27.0 - 07 LOW [place] 31.0 /2012 Medical [place] HEMATOLOGY MCHC 31.2 g/dL 32.0 - 03/09 LOW [place] 36.0 /2012 [facility] HEMATOLOGY RBC 3.14 M/CMM 4.20 - 07 LOW [place] 5.40 /2012 [facility] HEMATOLOGY Hgb 7.8 g/dL 12.0 - 07 LOW [place] 16.0 /2012 [facility] HEMATOLOGY WBC 7.4 K/CMM 3.7 - 10.4 07 Normal [facility] BEDSIDE Gluc POC 131 mg/dL 70 - 99 03/09 [place] 2Interpretive [facility] GLUCOSE Lifky Data: [facility] Upper Reportable Limit: 200 mg/dL. BEDSIDE Comment1 Notify 03/09 NA [facility] GLUCOSE RN/MD /2012 [facility] BEDSIDE Comment1 Notify 03/09 NA [facility] GLUCOSE RN/MD /2012 [facility] BEDSIDE Gluc POC 155 mg/dL 70 - 99 03/09 [place] 3Interpretive [facility] GLUCOSE Lifsc Data: [facility] Upper Reportable Limit: 200 mg/dL. CHEMISTRY Magnesium Lvl 1.5 mg/dL 1.8 - 2.4 03/[address] [facility] CHEMISTRY A/G Ratio 0.7 0.7 - 1.6 03/08 Normal [facility] CHEMISTRY B/C Ratio 8 6 - 25 03/[address] [facility] CHEMISTRY Globulin 2.8 g/dL 2.0 - 4.0 03/[address] [facility] CHEMISTRY AGAP 15.8 meq/L 10.0 - 03/08 Normal [facility] 20.[address] [facility] CHEMISTRY Potassium Lvl 3.8 meq/L 3.5 - 5.1 03/[address] [facility] CHEMISTRY Chloride Lvl 100 meq/L 95 - 109 03/[address] [facility] CHEMISTRY CO2 23 meq/L 24 - 32 03/[address] [facility] CHEMISTRY Total Protein 4.8 g/dL 6.4 - 8.4 03/[address] [facility] CHEMISTRY AST 10 unit/L 0 - 37 03/[address] [facility] CHEMISTRY Calcium Lvl 7.6 mg/dL 8.5 - 10.5 03/[address] [facility] CHEMISTRY Bili Total 0.3 mg/dL 0.2 - 1.3 03/[address] [facility] CHEMISTRY eGFR 88 03/08 NA 5Result Comment: The eGFR is calculated using the CKD-EPI formula. In most young, healthy individuals the eGFR will be > 90 mL/min/1.73m2. The eGFR declines with age. An eGFR of 60-89 may be normal in [facility] mL/min/1.7 some populations, particularly the elderly, for whom the CKD-EPI formula has not been extensively validated. Use of the eGFR is not recommended in the following populations: [place] [address] [facility] Individuals with unstable creatinine concentrations, including [...] values reflect the clinical guidelines of the [place] [employer]. [facility] CHEMISTRY BUN 6 mg/dL 7 - 22 03/[address] [facility] CHEMISTRY Creatinine 0.8 mg/dL 0.5 - 1.4 03/[address] [facility] CHEMISTRY Sodium Lvl 135 meq/L 135 - [address] [facility] CHEMISTRY Alk Phos 173 unit/L 39 - [address] [facility] CHEMISTRY ALT 16 unit/L 0 - 65 03/[address] [facility] CHEMISTRY Albumin Lvl 2.0 g/dL 3.5 - 5.[address] [facility] CHEMISTRY Lipase Lvl 54 unit/L 73 - 393 03/[address] [facility] CHEMISTRY Amylase Lvl 30 unit/L 25 - 115 03/[address] [facility] HEMATOLOGY Basophils # 0.1 K/CMM 0.0 - 0.2 03/[address] [facility] HEMATOLOGY Anisocyte 1+ None Seen 03/08 [facility]* Center (03/08/2013 03:01:00) HEMATOLOGY Microcyte 1+ None Seen 03/08 [facility] *[facility]* Center (03/08/2013 03:01:00) HEMATOLOGY Eosinophils # 0.2 K/CMM 0.0 - 0.5 03/[address] [facility] HEMATOLOGY Monocytes # 0.8 K/CMM 0.0 - 0.8 03/[address] [facility] HEMATOLOGY Lymphocytes 34.2 % 20.0 - 07 [facility] [address] [facility] HEMATOLOGY Segs 53.3 % 45.0 - 03/08 [facility] [address] [facility] HEMATOLOGY Lymphocytes # 3.0 K/CMM 1.0 - 5.[address] [facility] HEMATOLOGY Segs-Bands # 4.7 K/CMM 1.5 - 8.1 03/[address] [facility] HEMATOLOGY Basophils 0.9 % 0.0 - 1.0 07/ Normal [facility] HEMATOLOGY Eosinophils 2.6 % 0.0 - 4.0 07/ Normal [facility] HEMATOLOGY Monocytes 9.0 % 2.0 - 12.0 / Normal [facility] HEMATOLOGY Hgb 7.9 g/dL 12.0 - 07/ [facility] 16.[address] [facility] HEMATOLOGY RBC 3.12 M/CMM 4.20 - 07/ [facility] 5.40 /2012 [facility] HEMATOLOGY MPV 8.0 fL 7.4 - 10.4 07/ Normal Medical [place] HEMATOLOGY Platelet 294 K/CMM 133 - 450 07/ Normal Medical [place] HEMATOLOGY MCH 25.3 pg 27.0 - 07 [facility] 31.0 /2012 [facility] HEMATOLOGY MCV 79.7 fL 81.0 - 07 [facility] 99.0 /2012 Medical [place] HEMATOLOGY Hct 24.9 % 36.0 - 07/ [facility] 48.0 /2012 Medical [place] HEMATOLOGY WBC 8.8 K/CMM 3.7 - 10.4 07/ Normal [facility] HEMATOLOGY RDW 21.4 % 11.5 - 07/ [facility] 14.5 /2012 Medical [place] HEMATOLOGY MCHC 31.8 g/dL 32.0 - 07 [facility] 36.0 /2012 [facility] CHEMISTRY Troponin-I null 0.00 - 07 Normal [facility] [address] [facility] CHEMISTRY Total CK 26 unit/L 12 - [address] [facility] CHEMISTRY A/G Ratio 0.6 0.7 - 1.[address] [facility] CHEMISTRY Bili Total 0.6 mg/dL 0.2 - 1.[address] [facility] CHEMISTRY Bili Direct 0.3 mg/dL 0.0 - 0.[address] [facility] CHEMISTRY Alk Phos 190 unit/L 39 - 136 [address] [facility] CHEMISTRY Total Protein 5.2 g/dL 6.4 - 8.4 03/[address] [facility] CHEMISTRY Globulin 3.2 g/dL 2.0 - 4.[address] [facility] CHEMISTRY Bili Indirect 0.3 mg/dL 0.0 - 1.[address] [facility] CHEMISTRY AST 11 unit/L 0 - [address] [facility] CHEMISTRY Albumin Lvl 2.0 g/dL 3.5 - 5.[address] [facility] CHEMISTRY ALT 19 unit/L 0 - 65 07/ Normal [facility] CHEMISTRY Amylase Lvl 26 unit/L 25 - [address] [facility] CHEMISTRY Lipase Lvl 49 unit/L 73 - 393 07/ [facility] HEMATOLOGY MPV 8.3 fL 7.4 - 10.[address] [facility] HEMATOLOGY MCH 24.7 pg 27.0 - 07 [facility] 31.0 /2012 [facility] HEMATOLOGY MCHC 32.6 g/dL 32.0 - 07 Normal [facility] 36.0 /2012 [facility] HEMATOLOGY RDW 20.1 % 11.5 - 07/ [facility] 14.5 /2012 [facility] HEMATOLOGY Platelet 362 K/CMM 133 - [address] [facility] HEMATOLOGY MCV 75.7 fL 81.0 - 07 [facility] 99.0 /2012 [facility] HEMATOLOGY Hgb 8.8 g/dL 12.0 - 07 [facility] [address] [facility] HEMATOLOGY Hct 26.9 % 36.0 - 03/07 [facility] 48.0 /2012 [facility] HEMATOLOGY RBC 3.56 M/CMM 4.20 - 07 [facility] 5.40 /2012 [facility] HEMATOLOGY WBC 11.1 K/CMM 3.7 - 10.4 [address] [facility] HEMATOLOGY Lymphocytes # 2.4 K/CMM 1.0 - 5.5 03/[address] [facility] HEMATOLOGY Hypochrom Slight None Seen 03/07 [facility] (03/07/2013 07:43:59) Center HEMATOLOGY Microcyte 2+ None Seen 03/07 [facility] *ABN* [place] (03/07/2013 07:43:59) HEMATOLOGY Anisocyte 1+ None Seen 03/07 [facility] *[facility]* [place] (03/07/2013 07:43:59) HEMATOLOGY Basophils # 0.1 K/CMM 0.0 - 0.2 03/[address] [facility] HEMATOLOGY Polychrom Slight None Seen 03/07 [facility] (03/07/2013 07:43:59) Center HEMATOLOGY Basophils 0.8 % 0.0 - 1.0 03/[address] [facility] HEMATOLOGY Eosinophils 1.3 % 0.0 - 4.0 03/[address] [facility] HEMATOLOGY Segs-Bands # 7.6 K/CMM 1.5 - 8.1 03/07 [facility] HEMATOLOGY Monocytes 8.1 % 2.0 - 12.0 03/[address] [facility] HEMATOLOGY Monocytes # 0.9 K/CMM 0.0 - 0.8 03/[address] [facility] HEMATOLOGY Eosinophils # 0.1 K/CMM 0.0 - 0.5 03/[address] [facility] HEMATOLOGY Target Cell Slight None Seen 03/07 ABN Medical *ABN* Center (03/07/2013 07:43:59) HEMATOLOGY Plt Morph Normal 03/07 Normal Medical (03/07/2013 07:43:59) Center HEMATOLOGY Lymphocytes 22.0 % 20.0 - 03/07 [facility] [address] [facility] HEMATOLOGY Segs 67.8 % 45.0 - 07 [facility] [address] [facility] CHEMISTRY Lactic Acid 1.7 mMol/L 0.5 - 2.2 03/07 [facility] Lvl [facility] CHEMISTRY Total CK 21 unit/L 12 - 191 03/[address] [facility] CHEMISTRY Troponin-I null 0.00 - 03/07 Normal [facility] 0.40 /2012 [facility] CHEMISTRY eGFR 104 03/07 NA 6Result Comment: The eGFR is calculated using the CKD-EPI formula. In most young, healthy individuals the eGFR will be > 90 mL/min/1.73m2. The eGFR declines with age. An eGFR of 60-89 may be normal in [facility] mL/min/1.7 /2012 some populations, particularly the elderly, for whom the CKD-EPI formula has not been extensively validated. Use of the eGFR is not recommended in the following populations: [address] Individuals with unstable creatinine concentrations, including [...] 27 meq/L 24 - 32 03/[address] [facility] CHEMISTRY Potassium Lvl 3.6 meq/L 3.5 - 5.1 03/07 [facility] CHEMISTRY Chloride Lvl 99 meq/L 95 - 109 / Normal [facility] CHEMISTRY Sodium Lvl 134 meq/L 135 - 145 03/[address] [facility] CHEMISTRY BUN 5 mg/dL 7 - 22 03/[address] [facility] CHEMISTRY Creatinine 0.7 mg/dL 0.5 - 1.4 03/07 Normal [facility] CHEMISTRY Glucose Lvl 233 mg/dL 70 - 99 03/07 HI 9Interpretive Data: Adult reference range values reflect the clinical guidelines of the [place] [employer]. [facility] CHEMISTRY Calcium Lvl 7.7 mg/dL 8.5 - 10.5 03/[address] [facility] CHEMISTRY AGAP 11.6 meq/L 10.0 - 03/07 Normal [facility] 20.[address] [facility] CHEMISTRY Temp Art 37.0 Abby 03/[address] [facility] CHEMISTRY pH Art 7.41 7.35 - 03/07 Normal [facility] [address] [facility] CHEMISTRY pCO2 Art 34 mm[Hg] 35 - 45 03/[address] [facility] CHEMISTRY O2 Sat Art 97.5 % 95.0 - 03/07 Normal [facility] 100.[address] [facility] CHEMISTRY HCO3 Art 22 mMol/L 22 - [address] [facility] CHEMISTRY BE Art -2 mMol/L -2-2 - 2 03/[address] [facility] CHEMISTRY pO2 Art 96 mm[Hg] 80 - 100 03/[address] [facility] Chest 1view Chest 1view EXAM: CHEST 1 VIEW 03/07 - - Medical This report was dictated by a Travel Med Surg Rn/Fellow. I have personally reviewed the images as [...] CHEMISTRY Temp Mark 37.0 Abby 03/[address] [facility] CHEMISTRY pO2 Mark 20 mm[Hg] 20 - 49 03/[address] [facility] CHEMISTRY HCO3 Mark 21 mMol/L 22 - [address] [facility] CHEMISTRY BE Mark -2 mMol/L -2-2 - 2 03/[address] [facility] CHEMISTRY O2 Sat Mark 36.2 % 40.0 - 03/07 [facility] [address] [facility] CHEMISTRY pCO2 Mark 29 mm[Hg] 38 - 52 03/[address] [facility] CHEMISTRY pH Mark 7.46 7.28 - 03/07 [facility] 7.[address] [facility] CHEMISTRY Lactic Acid 2.6 mMol/L 0.5 - 2.2 03/07 [facility] [facility] Lvl [facility] CHEMISTRY Phosphorus 3.1 mg/dL 2.5 - 4.5 03/[address] [facility] CHEMISTRY Magnesium Lvl 1.6 mg/dL 1.8 - 2.4 03/[address] [facility] CHEMISTRY Total CK 31 unit/L 12 - 191 03/[address] [facility] CHEMISTRY Troponin-I null 0.00 - 03/07 Normal [facility] [address] [facility] CHEMISTRY U Preg Negative Negative 03/06 Normal [facility] (03/06/2013 18:25:00) Center URINALYSIS UA Amorph Occasional /HPF None Seen 03/06 ABN [facility] *ABN* Center (03/06/2013 18:25:00) URINALYSIS UA Mucus Few /LPF None Seen 03/06 Normal [facility] (03/06/2013 18:25:00) Center URINALYSIS Micro? Performed 03/06 Normal [facility] (03/06/2013 18:25:00) Center URINALYSIS UA Sq Epi Moderate /LPF Few 03/06 [facility] Medical *ABN* [place] (03/06/2013 18:25:00) URINALYSIS UA WBC 0-2 /HPF None Seen 03/06 Normal [facility] (03/06/2013 18:25:00) Center URINALYSIS UA RBC None Seen 0 - 2 03/06 Normal [facility] (03/06/2013 18:25:00) Center URINALYSIS UA Bacteria Few /HPF None Seen 03/06 Normal [facility] (03/06/2013 18:25:00) Center URINALYSIS UA Bili Negative Negative 03/06 NA [facility] *NA* [place] (03/06/2013 18:25:00) URINALYSIS UA 0.2 EU/dL 0.1 - 1.0 03/06 Normal [facility] Urobilinogen /2012 [facility] URINALYSIS UA Nitrite Negative Negative 03/06 Normal [facility] (03/06/2013 18:25:00) [place] URINALYSIS UA Leuk Est Trace Negative 03/06 [facility] *ABN* [place] (03/06/2013 18:25:00) URINALYSIS UA Blood Negative Negative 03/06 Normal [facility] (03/06/2013 18:25:00) [place] URINALYSIS UA Ketones 40 mg/dL Negative 03/06 [facility] *ABN* [place] (03/06/2013 18:25:00) URINALYSIS UA Turbidity Clear Clear 03/06 Normal [facility] (03/06/2013 18:25:00) [place] URINALYSIS UA Color Yellow Yellow 03/06 NA [facility] *NA* [place] (03/06/2013 18:25:00) URINALYSIS UA Spec Grav 1.015 <=1.030 03/[address] [facility] URINALYSIS UA Protein Negative Negative 03/06 Normal [facility] (03/06/2013 18:25:00) Center URINALYSIS UA Glucose 250 mg/dL Negative 03/06 [facility] *ABN* [place] (03/06/2013 18:25:00) URINALYSIS UA pH 7.5 5.0 - 8.0 03/[address] [facility] Chest 2 Chest 2 views EXAM: CHEST 2 VIEWS 03/06 - [facility] - [facility] This report was dictated by a Travel Med Surg Rn/Fellow. I have personally reviewed the images as [...] left pleural effusion. BEDSIDE Comment1 Notify 12/07 [facility] Fei GLUCOSE MARKUS [facility] TESTING Center BEDSIDE Gluc POC 64 mg/dL 70 - 99 12/07 LOW 3Interpretive [facility] GLUCOSE Lifscn Data: [facility] Upper Reportable Limit: 200 mg/dL. BEDSIDE Gluc POC 50 mg/dL 70 - 99 12/07 LOW 4Interpretive [facility] GLUCOSE Lifscn Data: [facility] Upper Reportable Limit: 200 mg/dL. BEDSIDE Comment1 Notify 12/07 [facility] Fei GLUCOSE MARTÍNEZ/ [facility] BEDSIDE Gluc POC 45 mg/dL 70 - 99 12/07 LOW 5Interpretive [facility] GLUCOSE Lifscn Data: [facility] Upper Reportable Limit: 200 mg/dL. BEDSIDE Comment1 Notify 12/07 [facility] Fei ROACH RN/ /2012 [facility] CHEMISTRY eGFR 109 12/07 NA 7Result Comment: The eGFR is calculated using the CKD-EPI formula. In most young, healthy individuals the eGFR will be > 90 mL/min/1.73m2. The eGFR declines with age. An eGFR of 60-89 may be normal in [facility] mL/min/1.7 /2012 some populations, particularly the elderly, for whom the CKD-EPI formula has not been extensively validated. Use of the eGFR is not recommended in the following populations: [address] Center Individuals with unstable creatinine concentrations, [...] 8.3 mg/dL 8.5 - 10.5 12/[address] [facility] CHEMISTRY AGAP 12.8 meq/L 10.0 - 12/07 Normal [facility] 20.0 [facility] CHEMISTRY BUN 2 mg/dL 7 - 22 12/[address] [facility] CHEMISTRY Glucose Lvl 95 mg/dL 70 - 99 12/07 Normal 10Interpretive Data: Adult reference range values reflect the clinical guidelines of the [employer]. [facility] CHEMISTRY Potassium Lvl 3.8 meq/L 3.5 - 5.1 12/[address] [facility] CHEMISTRY Creatinine 0.6 mg/dL 0.5 - 1.4 12/07 Normal [facility] CHEMISTRY Sodium Lvl 140 meq/L 135 - 145 12/[address] [facility] CHEMISTRY Chloride Lvl 105 meq/L 95 - 109 12/[address] [facility] CHEMISTRY CO2 26 meq/L 24 - 32 12/[address] [facility] BEDSIDE Comment2 Verify 12/06 NA [facility] GLUCOSE w/Lab [facility] BEDSIDE Comment2 Verify 12/06 NA [facility] GLUCOSE w/Lab [facility] CHEMISTRY AGAP 13.5 meq/L 10.0 - 12/06 Normal [facility] .0 [facility] CHEMISTRY Calcium Lvl 8.1 mg/dL 8.5 - 10.5 12/[address] [facility] CHEMISTRY CO2 28 meq/L 24 - 32 12/[address] [facility] CHEMISTRY Chloride Lvl 101 meq/L 95 - 109 12/[address] [facility] CHEMISTRY eGFR 104 04 NA 8Result Comment: The eGFR is calculated using the CKD-EPI formula. In most young, healthy individuals the eGFR will be > 90 mL/min/1.73m2. The eGFR declines with age. An eGFR of 60-89 may be normal in [facility] mL/min/1.7 /2012 some populations, particularly the elderly, for whom the CKD-EPI formula has not been extensively validated. Use of the eGFR is not recommended in the following populations: [address] Individuals with unstable creatinine concentrations, including [...] reference range values reflect the clinical guidelines [facility] of the [employer]. [facility] CHEMISTRY BUN 2 mg/dL 7 - 22 04/ LOW [facility]2012 [facility] CHEMISTRY Creatinine 0.7 mg/dL 0.5 - 1.4 / Normal [facility] CHEMISTRY Sodium Lvl 139 meq/L 135 - 145 / Normal [facility]2012 [facility] CHEMISTRY Potassium Lvl 3.5 meq/L 3.5 - 5.1 12/06 Normal [facility]2012 [facility] CHEMISTRY Lipase Lvl 62 unit/L 73 - 393 04/ LOW [facility]2012 [facility] CHEMISTRY Alk Phos 92 unit/L 39 - 136 04/ Normal [facility]2012 [facility] CHEMISTRY Albumin Lvl 2.7 g/dL 3.5 - 5.0 / LOW [facility]2012 [facility] CHEMISTRY Total Protein 5.8 g/dL 6.4 - 8.4 / LOW [facility]2012 [facility] CHEMISTRY Globulin 3.1 g/dL 2.0 - 4.0 / Normal [facility]2012 [facility] CHEMISTRY A/G Ratio 0.9 0.7 - 1.6 / Normal [facility]2012 [facility] CHEMISTRY AST 74 unit/L 0 - 37 04/ HI [facility] CHEMISTRY ALT 50 unit/L 0 - 65 04/ Normal [facility]2012 [facility] CHEMISTRY Bili Indirect 0.1 mg/dL 0.0 - 1.0 / Normal [facility]2012 [facility] CHEMISTRY Bili Total 0.2 mg/dL 0.2 - 1.3 / Normal [facility]2012 [facility] CHEMISTRY Bili Direct 0.1 mg/dL 0.0 - 0.3 / Normal [facility]2012 [facility] CHEMISTRY eGFR 109 12/05 NA 9Result Comment: The eGFR is calculated using the CKD-EPI formula. In most young, healthy individuals the eGFR will be > 90 mL/min/1.73m2. The eGFR declines with age. An eGFR of 60-89 may be normal in [facility] mL/min/1.7 some populations, particularly the elderly, for whom the CKD-EPI formula has not been extensively validated. Use of the eGFR is not recommended in the following populations: Medical [facility] Individuals with unstable creatinine concentrations, [...] values reflect the clinical guidelines of the [employer]. [facility] CHEMISTRY Creatinine 0.6 mg/dL 0.5 - 1.4 12/05 Normal [facility] l [facility] CHEMISTRY BUN 1 mg/dL 7 - 22 12/[address] [facility] CHEMISTRY Chloride Lvl 102 meq/L 95 - 109 12/[address] [facility] CHEMISTRY Potassium Lvl 3.3 meq/L 3.5 - 5.1 12/[address] [facility] CHEMISTRY Sodium Lvl 140 meq/L 135 - 145 12/[address] [facility] CHEMISTRY Calcium Lvl 7.9 mg/dL 8.5 - 10.5 12/[address] [facility] CHEMISTRY CO2 29 meq/L 24 - 32 12/[address] [facility] CHEMISTRY AGAP 12.3 meq/L 10.0 - 12/05 Normal [facility] 20.0 [facility] CHEMISTRY Ca Norm mgdL 4.84 mg/dL 4.65 - 12/03 Normal [facility] [address]. [facility] CHEMISTRY Ca Ion mgdL 4.84 mg/dL 4.65 - 12/03 Normal [facility] [address]. [facility] CHEMISTRY Ca Ion 1.21 1.16 - 12/03 Normal [place] mMol/L 1. [facility] CHEMISTRY Ca Norm 1.21 1.16 - 12/03 Normal [place] mMol/L 1. [facility] CHEMISTRY Magnesium Lvl 1.8 mg/dL 1.8 - 2.4 12/[address] [facility] CHEMISTRY Phosphorus 3.4 mg/dL 2.5 - 4.5 12/[address] [facility] HEMATOLOGY Lymphocytes # 1.8 K/CMM 1.0 - 5.5 12/[address] [facility] HEMATOLOGY Lymphocytes 23.6 % 20.0 - 12/[address] [place] [address] [facility] HEMATOLOGY Eosinophils 2.9 % 0.0 - 4.0 12/[address] [facility] HEMATOLOGY Monocytes 9.1 % 2.0 - 12.0 12/[address] [facility] HEMATOLOGY Basophils 0.6 % 0.0 - 1.0 12/[address] [facility] HEMATOLOGY Segs-Bands # 5.0 K/CMM 1.5 - 8.1 12/[address] [facility] HEMATOLOGY Segs 63.8 % 45.0 - 12/[address] [place] [address] [facility] HEMATOLOGY Monocytes # 0.7 K/CMM 0.0 - 0.8 12/[address] [facility] HEMATOLOGY Eosinophils # 0.2 K/CMM 0.0 - 0.5 12/[address] [facility] HEMATOLOGY Microcyte 1+ None Seen 12/03 ABN Medical *ABN* Center (12/03/2012 01:02:00) HEMATOLOGY WBC 7.8 K/CMM 3.7 - 10.4 12/[address] [facility] HEMATOLOGY Hct 27.8 % 36.0 - 12/[address] [place] [address] [facility] HEMATOLOGY MPV 8.5 fL 7.4 - 10.4 12/[address] [facility] HEMATOLOGY MCHC 32.4 g/dL 32.0 - 12/[address] [place] [address] [facility] HEMATOLOGY RDW 18.9 % 11.5 - 12/[address] [place] [address] [facility] HEMATOLOGY MCH 24.6 pg 27.0 - 12/03 [facility] [place] [address] [facility] HEMATOLOGY RBC 3.66 M/CMM 4.20 - 12/03 [facility] [place] [address] [facility] HEMATOLOGY MCV 75.9 fL 81.0 - 12/03 LOW [facility] [address] [facility] HEMATOLOGY Platelet 224 K/CMM 133 - 450 12/[address] [facility] HEMATOLOGY Hgb 9.0 g/dL 12.0 - 12/03 LOW [facility] 16.0 [facility] Microbiolog Culture: 12/02 [facility] y Blood /2012 [facility] Microbiolog Culture: MRSA 12/02 [facility] y /2012 Medical Center Microbiolog Culture: 12/02 [facility] y Resistant Medical Acinetobacter Center Screen CHEMISTRY Ketone 1.42 <=0.27 12/02 HI [facility] Quantitative mmol/L /2012 [facility] URINALYSIS UA WBC 1 /HPF 0 - 5 12/[address] [facility] URINALYSIS UA RBC null 0 - 2 12/[address] [facility] URINALYSIS UA <=1.0 0.1 - 1.0 12/02 NA [facility] Urobilinogen mg/dL Medical
*NA*< Center br/>(12/02 04:02:55) <sup> </sup> URINALYSIS UA Sq Epi Moderate /LPF Few 12/02 ABN [facility] *ABN* Center (12/02/2012 04:02:55) URINALYSIS UA Leuk Est Negative Negative 12/02 Normal [facility] (12/02/2012 04:02:55) Center URINALYSIS UA Nitrite Negative Negative 12/02 Normal [facility] (12/02/2012 04:02:55) Center URINALYSIS UA Mucus Few /LPF None Seen 12/02 NA Medical *NA* Center (12/02/2012 04:02:55) URINALYSIS UA Ketones 40 mg/dL Negative 12/02 ABN [facility] *ABN* Center (12/02/2012 04:02:55) URINALYSIS UA Blood Negative Negative 12/02 Normal [facility] (12/02/2012 04:02:55) Center URINALYSIS UA Glucose >=1000 mg/dL Negative 12/02 ABN [facility] *ABN* Center (12/02/2012 04:02:55) URINALYSIS UA Bili Negative Negative 12/02 NA Medical *NA* Center (12/02/2012 04:02:55) URINALYSIS UA Protein Negative mg/dL Negative 12/02 Normal [facility] (12/02/2012 04:02:55) Center URINALYSIS UA Turbidity Clear Clear 12/02 Normal [facility] (12/02/2012 04:02:55) Center URINALYSIS UA pH 5.5 5.0 - 8.0 12/[address] [facility] URINALYSIS UA Spec Grav 1.010 <=1.030 12/[address] [facility] URINALYSIS UA Color Yellow Yellow 12/02 NA [facility] *NA* Center (12/02/2012 04:02:55) HEMATOLOGY MPV 8.9 fL 7.4 - 10.4 12/[address] [facility] HEMATOLOGY Hct 27.9 % 36.0 - 12/02 LOW [facility] [address] [facility] HEMATOLOGY MCV 76.1 fL 81.0 - 12/02 LOW [facility] [address] [facility] HEMATOLOGY MCH 25.2 pg 27.0 - 12/02 LOW [facility] [address] [facility] HEMATOLOGY MCHC 33.2 g/dL 32.0 - 12/02 Normal [facility] [address] [facility] HEMATOLOGY RDW 19.3 % 11.5 - 12/02 HI [facility] 14.5 [facility] HEMATOLOGY Platelet 224 K/CMM 133 - 450 12/[address] [facility] HEMATOLOGY WBC 8.6 K/CMM 3.7 - 10.4 12/[address] [facility] HEMATOLOGY Hgb 9.3 g/dL 12.0 - 12/02 LOW [facility] [address] [facility] HEMATOLOGY RBC 3.67 M/CMM 4.20 - 12/02 LOW [facility] 5.40 /2012 [facility] HEMATOLOGY Segs-Bands # 6.4 K/CMM 1.5 - 8.1 12/[address] [facility] HEMATOLOGY Lymphocytes # 1.5 K/CMM 1.0 - 5.5 12/[address] [facility] HEMATOLOGY Eosinophils 0.6 % 0.0 - 4.0 12/[address] [facility] HEMATOLOGY Basophils 0.7 % 0.0 - 1.0 12/[address] [facility] HEMATOLOGY Lymphocytes 17.3 % 20.0 - 12/02 LOW [facility] [address] [facility] HEMATOLOGY Monocytes # 0.7 K/CMM 0.0 - 0.8 12/[address] [facility] HEMATOLOGY Microcyte 1+ None Seen 12/02 ABN [facility] *ABN* Center (12/02/2012 04:02:51) HEMATOLOGY Eosinophils # 0.1 K/CMM 0.0 - 0.5 12/[address] [facility] HEMATOLOGY Basophils # 0.1 K/CMM 0.0 - 0.2 12/[address] [facility] HEMATOLOGY Segs 73.8 % 45.0 - 12/02 Normal [facility] [address] [facility] HEMATOLOGY Monocytes 7.6 % 2.0 - 12.0 12/[address] [facility] Microbiolog Culture: 12/[address] [facility] [address] [facility] CHEMISTRY POC A Glu 305 mg/dL 70 - 99 12/[address] [facility] CHEMISTRY POC A Hct 29.0 % 36.0 - 12/02 LOW [facility] [address] [facility] CHEMISTRY POC A O2 Sat 97.0 % 95.0 - 12/02 Normal [facility] 100.[address] [facility] CHEMISTRY POC A K 3.4 meq/L 3.5 - 5.1 12/[address] [facility] CHEMISTRY POC A Na 130 meq/L 135 - 145 12/[address] [facility] CHEMISTRY POC A PCO2 38 mm[Hg] 35 - [address] [facility] CHEMISTRY POC A BE 2 mMol/L -2-2 - [address] [facility] CHEMISTRY POC A HCO3 26 mMol/L 22 - [address] [facility] CHEMISTRY POC A Source ART 12/[address] [facility] CHEMISTRY POC A PO2 89 mm[Hg] 80 - 100 12/[address] [facility] CHEMISTRY POC A pH 7.44 7.35 - 12/02 Normal [facility] [address].45 [facility] CHEMISTRY POC A Temp 37.0 Abby 12/[address] [facility] CHEMISTRY POC A Ca Ion 1.12 1.16 - 12/02 LOW [facility] mMol/L 1.30 [facility] CHEMISTRY POC A LA 0.8 mMol/L 0.5 - 2.2 12/[address] [facility] CHEMISTRY Magnesium Lvl 1.9 mg/dL 1.8 - 2.4 12/[address] [facility] CHEMISTRY Phosphorus 2.7 mg/dL 2.5 - 4.5 12/[address] [facility] CHEMISTRY Ca Norm mgdL 4.36 mg/dL 4.65 - 12/02 LOW [facility] [address]. [facility] CHEMISTRY Ca Ion 1.14 1.16 - 12/02 LOW [place] mMol/L 1. [facility] CHEMISTRY Ca Ion mgdL 4.56 mg/dL 4.65 - 12/02 LOW [facility] . [facility] CHEMISTRY Ca Norm 1.09 1.16 - 12/02 LOW [facility] mMol/L 1. [facility] HEMATOLOGY Platelet 223 K/CMM 133 - 450 12/[address] [facility] HEMATOLOGY MPV 9.2 fL 7.4 - 10.4 12/[address] [facility] HEMATOLOGY MCHC 32.3 g/dL 32.0 - 12/02 Normal [facility] [address] [facility] HEMATOLOGY RDW 19.2 % 11.5 - 12/02 HI [facility] 14.5 [facility] HEMATOLOGY WBC 7.6 K/CMM 3.7 - 10.4 12/[address] [facility] HEMATOLOGY Hgb 9.2 g/dL 12.0 - 12/02 [facility] 16.[address] [facility] HEMATOLOGY Hct 28.6 % 36.0 - 12/02 [facility] 48.0 /2012 [facility] HEMATOLOGY MCV 76.3 fL 81.0 - 12/02 [facility] 99.[address] [facility] HEMATOLOGY MCH 24.6 pg 27.0 - 12/02 LOW [facility] [address] [facility] HEMATOLOGY RBC 3.74 M/CMM 4.20 - 12/02 [facility] 5.40 /2012 [facility] HEMATOLOGY Microcyte 1+ None Seen 12/02 ABN Medical *ABN* Center (12/02/2012 03:00:00) HEMATOLOGY Basophils # 0.1 K/CMM 0.0 - 0.2 12/[address] [facility] HEMATOLOGY Monocytes # 0.6 K/CMM 0.0 - 0.8 12/[address] [facility] HEMATOLOGY Lymphocytes # 1.9 K/CMM 1.0 - 5.5 12/[address] [facility] HEMATOLOGY Segs-Bands # 5.0 K/CMM 1.5 - 8.1 12/[address] [facility] HEMATOLOGY Segs 65.5 % 45.0 - 12/02 Normal [facility] [address] [facility] HEMATOLOGY Lymphocytes 25.0 % 20.0 - 12/02 Normal [facility] [address] [facility] HEMATOLOGY Monocytes 8.4 % 2.0 - 12.0 12/[address] [facility] HEMATOLOGY Eosinophils 0.4 % 0.0 - 4.0 12/[address] [facility] HEMATOLOGY Basophils 0.7 % 0.0 - 1.0 12/[address] [facility] CHEMISTRY Magnesium Lvl 2.0 mg/dL 1.8 - 2.4 12/[address] [facility] CHEMISTRY Ca Norm mgdL 4.48 mg/dL 4.65 - 12/01 LOW [facility] [address]. [facility] CHEMISTRY Ca Ion mgdL 4.68 mg/dL 4.65 - 12/01 Normal [facility] [address]. [facility] CHEMISTRY Ca Ion 1.17 1.16 - 12/01 Normal [facility] mMol/L 1. [facility] CHEMISTRY Ca Norm 1.12 1.16 - 12/01 LOW [facility] mMol/L 1. [facility] CHEMISTRY Phosphorus 2.7 mg/dL 2.5 - 4.5 12/[address] [facility] URINALYSIS UA <=1.0 0.1 - 1.0 11/30 NA [facility] Urobilinogen mg/dL /2012 Medical
*NA*< Center br/>(11/30 17:41:33) <sup> </sup> URINALYSIS UA Mucus Few /LPF None Seen 11/30 NA Medical *NA* Center (11/30/2012 17:41:33) URINALYSIS UA WBC null 0 - 5 11/[address] [facility] URINALYSIS UA Sq Epi Moderate /LPF Few 11/30 ABN Medical *ABN* Center (11/30/2012 17:41:33) URINALYSIS UA Protein Negative mg/dL Negative 11/30 Normal Medical (11/30/2012 17:41:33) Center URINALYSIS UA pH 5.0 5.0 - 8.0 11/30 Normal [facility] URINALYSIS UA Spec Grav 1.004 <=1.030 11/30 Normal [facility] URINALYSIS UA Turbidity Clear Clear 11/30 Normal [facility] (11/30/2012 17:41:33) Center URINALYSIS UA Color Light Yellow Yellow 11/30 NA Medical *NA* [place] (11/30/2012 17:41:33) URINALYSIS UA Leuk Est Negative Negative 11/30 Normal [facility] (11/30/2012 17:41:33) Center URINALYSIS UA Nitrite Negative Negative 11/30 Normal [facility] (11/30/2012 17:41:33) Center URINALYSIS UA Blood Negative Negative 11/30 Normal [facility] (11/30/2012 17:41:33) Center URINALYSIS UA Bili Negative Negative 11/30 NA Medical *NA* [place] (11/30/2012 17:41:33) URINALYSIS UA Ketones 10 mg/dL Negative 11/30 ABN Medical *ABN* Center (11/30/2012 17:41:33) URINALYSIS UA Glucose Negative mg/dL Negative 11/30 NA [facility] *NA* [place] (11/30/2012 17:41:33) CHEMISTRY Ketone 1.65 <=0.27 11/30 HI [facility] Quantitative mmol/L /2012 [facility] HEMATOLOGY PT 14.1 s 12.0 - 11/30 Normal [facility] 14.7 [facility] HEMATOLOGY PTT 28.1 s 22.9 - 11/30 Normal 18Interpretiv [facility] 35.8 /2013 e Data: Medical [facility] Therapeutic Range: 57 - 92 Seconds HEMATOLOGY INR 1.07 0.85 - 11/30 Normal 16Interpretive Data: RECOMMENDED RANGES FOR PROTIME INR: [facility] 1. 2.0-3.0 for most medical and [...] CHEMISTRY U Chloride 134 meq/L 11/[address] [facility] CHEMISTRY Bili Total 0.4 mg/dL 0.2 - 1.3 11/[address] [facility] CHEMISTRY Total Protein 6.3 g/dL 6.4 - 8.4 11/[address] [facility] CHEMISTRY Albumin Lvl 2.9 g/dL 3.5 - 5.0 11/[address] [facility] CHEMISTRY Alk Phos 127 unit/L 39 - 136 11/[address] [facility] CHEMISTRY Bili Direct 0.2 mg/dL 0.0 - 0.3 11/[address] [facility] CHEMISTRY AST 22 unit/L 0 - 37 11/[address] [facility] CHEMISTRY ALT 20 unit/L 0 - 65 11/[address] [facility] CHEMISTRY A/G Ratio 0.9 0.7 - 1.6 11/[address] [facility] CHEMISTRY Bili Indirect 0.2 mg/dL 0.0 - 1.0 11/[address] [facility] CHEMISTRY Globulin 3.4 g/dL 2.0 - 4.0 11/[address] [facility] HEMATOLOGY Basophils # 0.1 K/CMM 0.0 - 0.2 11/[address] [facility] HEMATOLOGY PT 13.9 s 12.0 - 11/30 Normal [facility] [address] [facility] HEMATOLOGY PTT 26.5 s 22.9 - 11/30 Normal 19Interpretiv [facility] 35.8 e Data: [facility] Therapeutic Range: 57 - 92 Seconds HEMATOLOGY INR 1.05 0.85 - 11/30 Normal 17Interpretive Data: RECOMMENDED RANGES FOR PROTIME INR: [facility] . 2.0-3.0 for most medical and surgical thromboembolic states. Medical 2.5-3.5 for artificial heart valves and recurrent embolism. Center INR SHOULD BE USED ONLY FOR PATIENTS ON STABLE ANTICOAGULANT THERAPY. CHEMISTRY POC V Temp 37.0 Abby 11/[address] [facility] CHEMISTRY POC V Ion Ca 1.16 1.16 - 11/29 Normal [facility] mMol/L 1.30 Medical Center CHEMISTRY POC V K 3.5 meq/L 3.5 - 5.1 11/29 Normal Medical Center CHEMISTRY POC V Na 139 meq/L 135 - 145 11/29 Normal [facility] CHEMISTRY POC V LA 0.8 mMol/L 0.5 - 2.2 11/29 Normal Medical [place] CHEMISTRY POC V Source MARK 11/29 NA Medical Center CHEMISTRY POC V O2 Sat 86.0 % 40.0 - 11/29 HI [place] 70.0 Medical Center CHEMISTRY POC V Glu 144 mg/dL 70 - 99 11/29 HI [facility] CHEMISTRY POC V BE -4 mmol/L -2-2 - 2 11/29 LOW Medical [place] CHEMISTRY POC V pH 7.42 7.28 - 11/29 Normal [facility] 7.42 Medical Center CHEMISTRY POC V PCO2 31 mm[Hg] 38 - 52 11/29 LOW [facility] CHEMISTRY POC V PO2 51 mm[Hg] 20 - 49 11/29 HI [facility] CHEMISTRY POC V HCO3 20 mmol/L 22 - 26 11/29 LOW [facility] CHEMISTRY Troponin-I 0.05 ng/mL 0.00 - 11/29 Normal [facility] 0.40 Medical Center CHEMISTRY Total CK 46 unit/L 12 - 191 11/[address] [facility] CHEMISTRY Troponin-T null 0.000 - 11/29 Normal [facility] 0.100 Medical Center CHEMISTRY Ketone 4.63 <=0.27 [...] CHEMISTRY POC A Source ART 11/29 NA Medical Center CHEMISTRY POC A O2 Sat 98.0 % 95.0 - 11/29 Normal [facility] [address].0 [facility] CHEMISTRY POC A BE -11 mMol/L -2-2 - 2 11/[address] [facility] CHEMISTRY POC A HCO3 14 mMol/L - 11/[address] [facility] CHEMISTRY POC A PCO2 26 mm[Hg] 35 - 45 11/[address] [facility] CHEMISTRY POC A PO2 115 mm[Hg] 80 - 100 11/[address] [facility] CHEMISTRY POC A pH 7.33 7.35 - 11/29 [facility] 7.45 [facility] BACTERIAL - MRSA by PCR Positive , 11/29 ABN 2Interpretive Data: Interpretive Data: The [employer] MRSA assay is a qualitative test for the direct detection of nasal colonization with methicillin-resistant Staphylococcus aureus (MRSA) to aid [facility] in the prevention and control of [...] by the Molecular Diagnostic Laboratory within the [facility]. The Molecular Diagnostic Labor atory is authorized under the Clinical Laboratory Improvement Amendment of 1988 (CLIA-88) to perform high complexity testing. CHEMISTRY Temp Art 37.0 Abby 11/[address] [facility] CHEMISTRY O2 Sat Art 96.6 % 95.0 - 11/29 Normal [facility] 100.0 [facility] CHEMISTRY pO2 Art 96 mm[Hg] 80 - 100 11/[address] [facility] CHEMISTRY pCO2 Art 25 mm[Hg] 35 - 45 11/29 CRIT 15Result Comment: [facility] Result(s) called to jose rodriguez at _11/29/2012 12:25:56 CDT bykak_. Read back OK. CHEMISTRY BE Art -12 mMol/L -2-2 - 2 11/[address] [facility] CHEMISTRY HCO3 Art 12 mMol/L - 11/[address] [facility] CHEMISTRY pH Art 7.30 7.35 - 11/29 LOW [facility] 7.45 /2012 [facility] CHEMISTRY A/G Ratio 0.8 0.7 - 1.6 11/[address] [facility] CHEMISTRY Globulin 4.0 g/dL 2.0 - 4.0 11/[address] [facility] CHEMISTRY AST 17 unit/L 0 - 37 11/[address] [facility] CHEMISTRY Bili Total 0.8 mg/dL 0.2 - 1.3 11/[address] [facility] CHEMISTRY B/C Ratio 14 - 25 11/[address] [facility] CHEMISTRY Total Protein 7.4 g/dL 6.4 - 8.4 11/[address] [facility] CHEMISTRY ALT 22 unit/L 0 - 65 11/[address] [facility] CHEMISTRY Albumin Lvl 3.4 g/dL 3.5 - 5.0 11/[address] [facility] CHEMISTRY Alk Phos 126 unit/L 39 - 136 11/[address] [facility] CHEMISTRY Troponin-I null 0.00 - 11/29 Normal [facility] [address] [facility] CHEMISTRY Lipase Lvl 70 unit/L 73 - 393 11/[address] [facility] CHEMISTRY B/C Ratio 10 - 11/[address] [facility] HEMATOLOGY Hypochrom Slight None Seen 11/29 Normal [facility] (11/28/2012 21:00:20) Center HEMATOLOGY Polychrom Slight None Seen 11/29 Normal [facility] (11/28/2012 21:00:20) Center HEMATOLOGY Anisocyte 1+ None Seen 11/29 ABN [facility] *ABN* [place] (11/28/2012 21:00:20) HEMATOLOGY Large Plt Slight None Seen 11/29 [facility] *ABN* [place] (11/28/2012 21:00:20) HEMATOLOGY Eosinophils # 0.2 K/CMM 0.0 - 0.5 11/[address] [facility] CHEMISTRY U Preg Negative Negative 11/29 Normal [facility] (11/28/2012 20:55:00) Center URINALYSIS UA Blood Negative Negative 11/29 Normal [facility] (11/28/2012 20:55:00) [place] URINALYSIS UA Bili Small 6 Negative 11/29 ABN 6Result Comment: Interpret positive bilirubin results with caution. Confirmatory testing not possible due to the unavailability of reagent. Correlation with Medical *ABN* serum chemistry results recommended. [place] (11/28/2012 20:55:00) URINALYSIS UA Protein Negative Negative 11/29 Normal [facility] (11/28/2012 20:55:00) [place] URINALYSIS Micro? Not Indicated 11/29 Normal [facility] (11/28/2012 20:55:00) [place] URINALYSIS UA Glucose Negative Negative 11/29 Normal [facility] (11/28/2012 20:55:00) [place] URINALYSIS UA Ketones 40 mg/dL Negative 11/29 ABN Medical *ABN* [place] (11/28/2012 20:55:00) URINALYSIS UA Leuk Est Negative Negative 11/29 Normal [facility] (11/28/2012 20:55:00) [place] URINALYSIS UA 0.2 EU/dL 0.1 - 1.0 11/29 Normal [facility] Urobilinogen /2012 [facility] URINALYSIS UA Nitrite Negative Negative 11/29 Normal [facility] (11/28/2012 20:55:00) [place] URINALYSIS UA Spec Grav 1.010 <=1.030 11/[address] [facility] URINALYSIS UA pH 6.0 5.0 - 8.0 11/[address] [facility] URINALYSIS UA Color Yellow Yellow 11/29 NA Medical *NA* [place] (11/28/2012 20:55:00) URINALYSIS UA Turbidity Clear Clear 11/29 Normal [facility] (11/28/2012 20:55:00) Center BEDSIDE Comment1 Notify 11/17 NA [facility] GLUCOSE RN/ /2012 [facility]ING Center BEDSIDE Gluc POC 219 mg/dL 70 - 99 11/17 HI 1Interpretive [facility] GLUCOSE [facility] Data: Medical TESTING [place] Upper Reportable Limit: 200 mg/dL. BEDSIDE Gluc POC 255 mg/dL 70 - 99 11/17 [place] 2Interpretive [facility] GLUCOSE [facility] Data: Medical TESTING Center Upper Reportable Limit: 200 mg/dL. BEDSIDE Comment1 Notify 11/17 NA [facility] GLUCOSE RN/MD /2012 [facility] CHEMISTRY Troponin-T null 0.000 - 11/17 Normal [facility] [address] [facility] CHEMISTRY Troponin-I null 0.00 - 11/17 Normal [facility] [address].40 [facility] CHEMISTRY Total CK 52 unit/L 12 - 191 11/[address] [facility] CHEMISTRY eGFR 109 11/17 NA 4Result Comment: The eGFR is calculated using the CKD-EPI formula. In most young, healthy individuals the eGFR will be > 90 mL/min/1.73m2. The eGFR declines with age. An eGFR of 60-89 may be normal in [facility] mL/min/1.7 some populations, particularly the elderly, for whom the CKD-EPI formula has not been extensively validated. Use of the eGFR is not recommended in the following populations: [place] [address] Center Individuals with unstable creatinine concentrations, including [...] Lvl 7.7 mg/dL 8.5 - 10.5 11/[address] [facility] CHEMISTRY AGAP 16.2 meq/L 10.0 - 11/17 Normal [facility] 20.0 [facility] CHEMISTRY Chloride Lvl 100 meq/L 95 - 109 11/[address] [facility] CHEMISTRY Potassium Lvl 4.2 meq/L 3.5 - 5.1 11/[address] [facility] CHEMISTRY Sodium Lvl 134 meq/L 135 - 145 11/[address] [facility] CHEMISTRY CO2 22 meq/L 24 - 32 11/[address] [facility] CHEMISTRY Creatinine 0.6 mg/dL 0.5 - 1.4 11/17 Normal [facility]2012 [facility] CHEMISTRY BUN 4 mg/dL 7 - 22 11/[address] [facility] CHEMISTRY Glucose Lvl 237 mg/dL 70 - 99 11/17 HI 6Interpretive Data: Adult reference range values reflect the clinical guidelines of the [place] [employer]. Medical Center CHEMISTRY Magnesium Lvl 1.4 mg/dL 1.8 - 2.4 11/[address] [facility] CHEMISTRY Phosphorus 3.4 mg/dL 2.5 - 4.5 11/[address] [facility] HEMATOLOGY Segs 60.3 % 45.0 - 11/17 Normal [facility] 75.0 [facility] HEMATOLOGY Monocytes 9.0 % 2.0 - 12.0 11/[address] [facility] HEMATOLOGY Lymphocytes 27.8 % 20.0 - 11/17 Normal [facility] [address] [facility] HEMATOLOGY Eosinophils 2.1 % 0.0 - 4.0 11/[address] [facility] HEMATOLOGY Lymphocytes # 2.3 K/CMM 1.0 - 5.5 11/[address] [facility] HEMATOLOGY Eosinophils # 0.2 K/CMM 0.0 - 0.5 11/[address] [facility] HEMATOLOGY Basophils 0.8 % 0.0 - 1.0 11/[address] [facility] HEMATOLOGY Segs-Bands # 5.1 K/CMM 1.5 - 8.1 11/[address] [facility] HEMATOLOGY Basophils # 0.1 K/CMM 0.0 - 0.2 11/[address] [facility] HEMATOLOGY Monocytes # 0.8 K/CMM 0.0 - 0.8 11/[address] [facility] HEMATOLOGY Microcyte 1+ None Seen 11/17 ABN Medical *ABN* Center (11/17/2012 04:33:00) HEMATOLOGY INR 1.09 0.85 - 11/17 Normal 8Interpretive Data: RECOMMENDED RANGES FOR PROTIME INR: [facility] 1. 2.0-3.0 for most medical and surgical thromboembolic states. Medical 2.5-3.5 for artificial heart valves and recurrent embolism. Center INR SHOULD BE USED ONLY FOR PATIENTS ON STABLE ANTICOAGULANT THERAPY. HEMATOLOGY PT 14.3 s 12.0 - 11/17 Normal [facility] 14.7 [facility] HEMATOLOGY PTT 31.8 s 22.9 - 11/17 Normal 9Interpretive [facility] 35.8 Data: Heparin [facility] Range: 57 - 92 Second[facility] HEMATOLOGY Platelet 177 K/CMM 133 - 450 11/[address] [facility] HEMATOLOGY MPV 9.5 fL 7.4 - 10.4 11/17 Normal [facility] HEMATOLOGY MCH 24.5 pg 27.0 - 11/17 LOW [place] 31.0 /2012 Medical Center HEMATOLOGY RDW 18.9 % 11.5 - 11/17 HI [place] 14.5 /2012 Medical Center HEMATOLOGY MCHC 32.3 g/dL 32.0 - 11/17 Normal [facility] 36.0 /2012 Medical Center HEMATOLOGY MCV 75.9 fL 81.0 - 11/17 [facility] 99.0 /2012 Medical Center HEMATOLOGY RBC 3.67 M/CMM 4.20 - 11/17 LOW [facility] 5.40 /2012 Medical Center HEMATOLOGY WBC 8.4 K/CMM 3.7 - 10.4 11/17 Normal [facility] HEMATOLOGY Hct 27.9 % 36.0 - 11/17 [facility] 48.0 /2012 Medical Center HEMATOLOGY Hgb 9.0 g/dL 12.0 - 11/17 [facility] 16.0 /2012 Medical Center CHEMISTRY Troponin-T null 0.000 - 11/17 Normal [facility] 0. Medical Center CHEMISTRY Troponin-I null 0.00 - 11/17 Normal [facility] 0.40 [facility] Center CHEMISTRY Total CK 76 unit/L 11/17 Normal [facility] CHEMISTRY CK MB Index 0.8 0.0 - 2.5 11/17 Normal [facility] CHEMISTRY CK MB 0.6 ng/mL 0.5 - 3.6 11/17 Normal [facility] BEDSIDE Gluc POC 305 mg/dL 70 - 99 11/17 [place] 3Interpretive [facility] GLUCOSE [facility] Data: Medical TESTING Center Upper Reportable Limit: 200 mg/dL. BEDSIDE Comment1 Notify 11/17 NA [facility] GLUCOSE RN/MD /2012 Medical [facility]ING Center CHEMISTRY Magnesium Lvl 1.4 mg/dL 1.8 - 2.4 11/16 LOW [facility] CHEMISTRY Total CK 27 unit/L 11/16 Normal [facility] CHEMISTRY Troponin-T null 0.000 - 11/16 Normal [facility] 0.100 [facility] Center CHEMISTRY Troponin-I null 0.00 - 11/16 Normal [facility] 0.40 [facility] Center CHEMISTRY B/C Ratio 6 6 - 25 11/16 Normal [facility] CHEMISTRY A/G Ratio 1.0 0.7 - 1.6 11/[address] [facility] CHEMISTRY AGAP 18.6 meq/L 10.0 - 11/16 Normal [facility] 20.[address] [facility] CHEMISTRY Globulin 3.5 g/dL 2.0 - 4.0 11/[address] [facility] CHEMISTRY eGFR 67 11/16 NA 5Result Comment: The eGFR is calculated using the CKD-EPI formula. In most young, healthy individuals the eGFR will be > 90 mL/min/1.73m2. The eGFR declines with age. An eGFR of 60-89 may be normal in [facility] mL/min/1.7 /2012 some populations, particularly the elderly, for whom the CKD-EPI formula has not been extensively validated. Use of the eGFR is not recommended in the following populations: [address] Individuals with unstable creatinine concentrations, including [...] 3.4 g/dL 3.5 - 5.0 11/[address] [facility] CHEMISTRY Alk Phos 88 unit/L 39 - 136 11/[address] [facility] CHEMISTRY Glucose Lvl 256 mg/dL 70 - 99 11/16 HI 7Interpretive Data: Adult reference range values reflect the clinical guidelines of the [place] [employer]. [facility] CHEMISTRY BUN 6 mg/dL 7 - 22 11/[address] [facility] CHEMISTRY Sodium Lvl 136 meq/L 135 - 145 11/[address] [facility] CHEMISTRY Chloride Lvl 99 meq/L 95 - 109 11/[address] [facility] CHEMISTRY Creatinine 1.0 mg/dL 0.5 - 1.4 11/[address] [facility] CHEMISTRY Potassium Lvl 3.6 meq/L 3.5 - 5.1 11/[address] [facility] CHEMISTRY CO2 22 meq/L 24 - 32 11/[address] [facility] CHEMISTRY Calcium Lvl 8.8 mg/dL 8.5 - 10.5 11/[address] [facility] CHEMISTRY Bili Total 0.6 mg/dL 0.2 - 1.3 11/[address] [facility] CHEMISTRY Total Protein 6.9 g/dL 6.4 - 8.4 11/[address] [facility] CHEMISTRY AST 52 unit/L 0 - 37 11/[address] [facility] CHEMISTRY ALT 52 unit/L 0 - 65 11/[address] [facility] CHEMISTRY Phosphorus 1.6 mg/dL 2.5 - 4.5 11/[address] [facility] HEMATOLOGY Lymphocytes 16.8 % 20.0 - 11/16 LOW [facility] [address] [facility] HEMATOLOGY Segs 72.3 % 45.0 - 11/16 Normal [facility] 75.[address] [facility] HEMATOLOGY Large Plt Slight None Seen 11/16 [facility] (11/16/2012 13:17:00) HEMATOLOGY Elliptocyte Slight None Seen 11/16 [facility] (11/16/2012 13:17:00) HEMATOLOGY Polychrom Slight None Seen 11/16 Normal [facility] (11/16/2012 13:17:00) Center HEMATOLOGY Microcyte 1+ None Seen 11/16 [facility] (11/16/2012 13:17:00) HEMATOLOGY Basophils # 0.1 K/CMM 0.0 - 0.2 11/[address] [facility] HEMATOLOGY Hypochrom Slight None Seen 11/16 Normal [facility] (11/16/2012 13:17:00) Center HEMATOLOGY Anisocyte 1+ None Seen 11/16 [facility] [place] (11/16/2012 13:17:00) HEMATOLOGY Schistocyte Occasional 11/[address] [facility] HEMATOLOGY Monocytes 8.6 % 2.0 - 12.0 11/[address] [facility] HEMATOLOGY Eosinophils 1.5 % 0.0 - 4.0 11/[address] [facility] HEMATOLOGY Monocytes # 1.1 K/CMM 0.0 - 0.8 11/[address] [facility] HEMATOLOGY Segs-Bands # 9.7 K/CMM 1.5 - 8.1 11/16 [facility] Medical Center HEMATOLOGY Eosinophils # 0.2 K/CMM 0.0 - 0.5 11/16 Normal [facility] HEMATOLOGY Lymphocytes # 2.2 K/CMM 1.0 - 5.5 11/16 Normal [facility] HEMATOLOGY Basophils 0.8 % 0.0 - 1.0 11/16 Normal [facility] HEMATOLOGY Hgb 10.8 g/dL 12.0 - 11/16 LOW [place] 16.0 /2012 Medical Center HEMATOLOGY RBC 4.29 M/CMM 4.20 - 11/16 Normal [place] 5.40 /2012 Medical Center HEMATOLOGY WBC 13.3 K/CMM 3.7 - 10.4 11/16 HI [facility] HEMATOLOGY RDW 18.0 % 11.5 - 11/16 [facility] 14.5 Medical Center HEMATOLOGY Hct 32.4 % 36.0 - 11/16 LOW [facility] 48.0 /2012 Medical Center HEMATOLOGY MCHC 33.3 g/dL 32.0 - 11/16 Normal [facility] 36.0 Medical Center HEMATOLOGY MCV 75.4 fL 81.0 - 11/16 LOW [facility] 99.0 /2012 Medical Center HEMATOLOGY MCH 25.1 pg 27.0 - 11/16 [facility] 31.0 /2012 Medical Center HEMATOLOGY Platelet 230 K/CMM 133 - 450 11/16 Normal [facility] HEMATOLOGY MPV 9.9 fL 7.4 - 10.4 11/16 Normal [facility] BEDSIDE Comment1 Notify 11/14 NA [facility] GLUCOSE MARTÍNEZ/ /2012 Medical TESTING Center BEDSIDE Gluc POC 266 mg/dL 11/14 [place] 2Interpretive [facility] GLUCOSE [facility] Data: Medical TESTING Center Upper Reportable Limit: 200 mg/dL. BEDSIDE Comment1 Notify 11/14 NA [facility] GLUCOSE MARTÍNEZ/ /2012 Medical TESTING Center BEDSIDE Gluc POC 140 mg/dL - 11/14 [place] 3Interpretive [facility] GLUCOSE [facility] Data: Medical TESTING Center Upper Reportable Limit: 200 mg/dL. BEDSIDE Comment1 Notify 11/14 NA [facility] GLUCOSE [place]ART[place]NEZ/ /2012 Medical TESTING Center BEDSIDE Gluc POC 201 mg/dL 70 - 11/14 [place] 4Interpretive [facility] GLUCOSE [facility] Data: Medical TESTING Center Upper Reportable Limit: 200 mg/dL. CHEMISTRY A/G Ratio 0.9 0.7 - 1.6 11/[address] [facility] CHEMISTRY AST 41 unit/L 0 - 37 11/[address] [facility] CHEMISTRY eGFR 104 11/14 NA 6Result Comment: The eGFR is calculated using the CKD-EPI formula. In most young, healthy individuals the eGFR will be > 90 mL/min/1.73m2. The eGFR declines with age. An eGFR of 60-89 may be normal in [facility] mL/min/1.7 /2012 some populations, particularly the elderly, for whom the CKD-EPI formula has not been extensively validated. Use of the eGFR is not recommended in the following populations: [address] Individuals with unstable creatinine concentrations, including [...] 2.9 g/dL 3.5 - 5.0 11/[address] [facility] CHEMISTRY Alk Phos 84 unit/L 39 - 136 11/[address] [facility] CHEMISTRY BUN 3 mg/dL 7 - 22 11/14 L[address] [facility] CHEMISTRY Creatinine 0.7 mg/dL 0.5 - 1.4 11/[address] [facility] CHEMISTRY Sodium Lvl 136 meq/L 135 - 145 11/[address] [facility] CHEMISTRY Total Protein 6.3 g/dL 6.4 - 8.4 11/[address] [facility] CHEMISTRY ALT 51 unit/L 0 - 65 11/[address] [facility] CHEMISTRY Potassium Lvl 3.7 meq/L 3.5 - 5.1 11/[address] [facility] CHEMISTRY Chloride Lvl 101 meq/L 95 - 109 11/[address] [facility] CHEMISTRY Glucose Lvl 210 mg/dL 70 - 99 11/14 [place] 9Interpretive Data: Adult reference range values reflect the clinical guidelines of the [place] [employer]. [facility] CHEMISTRY AGAP 15.7 meq/L 10.0 - 11/14 Normal [facility] [place] [address] [facility] CHEMISTRY B/C Ratio 4 6 - 25 11/[address] [facility] CHEMISTRY Globulin 3.4 g/dL 2.0 - 4.0 11/[address] [facility] CHEMISTRY CO2 23 meq/L 24 - 32 11/[address] [facility] CHEMISTRY Bili Total 0.4 mg/dL 0.2 - 1.3 11/[address] [facility] CHEMISTRY Calcium Lvl 8.5 mg/dL 8.5 - 10.5 11/[address] [facility] CHEMISTRY Phosphorus 3.6 mg/dL 2.5 - 4.5 11/[address] [facility] CHEMISTRY Magnesium Lvl 1.5 mg/dL 1.8 - 2.4 11/[address] [facility] CHEMISTRY Ca Norm mgdL 3.52 mg/dL 4.65 - 11/[address] [place] [address] [facility] CHEMISTRY Ca Ion mgdL 3.32 mg/dL 4.65 - 11/[address] [place] [address] [facility] CHEMISTRY Ca Ion 0.83 1. - 11/14 CRIT 15Result [place] mMol/L . Comment: [facility] Result(s) called to Arlin Rose at 11/14/2012 00:23:56 CDT_ by_tvs. Read back OK. CHEMISTRY Ca Norm 0.88 1.16 - 11/14 CRIT [place] mMol/L 1. [facility] HEMATOLOGY Platelet 221 K/CMM 133 - 450 11/[address] [facility] HEMATOLOGY RDW 19.0 % 11.5 - 11/14 HI [place] 14.5 /2012 Medical Center HEMATOLOGY MCHC 32.4 g/dL 32.0 - 11/14 Normal [place] 36.0 /2012 [facility] HEMATOLOGY MCV 75.5 fL 81.0 - 11/14 LOW [place] 99.0 /2012 [facility] HEMATOLOGY Hct 35.5 % 36.0 - 11/14 LOW [place] 48.0 /2012 [facility] HEMATOLOGY Hgb 11.5 g/dL 12.0 - 11/14 LOW [place] 16.0 /2012 Medical [place] HEMATOLOGY MCH 24.5 pg 27.0 - 11/[address] [place] [address] [facility] HEMATOLOGY MPV 9.1 fL 7.4 - 10.4 11/[address] [facility] HEMATOLOGY RBC 4.70 M/CMM 4.20 - 03 Normal [place] 5.40 /2012 [facility] HEMATOLOGY WBC 8.6 K/CMM 3.7 - 10.4 11/[address] [facility] HEMATOLOGY Segs 53.3 % 45.0 - 11/14 Normal [place] 75.0 /2012 [facility] HEMATOLOGY Microcyte 1+ None Seen 11/14 ABN Medical *ABN* Center (11/13/2012 23:45:00) HEMATOLOGY Basophils # 0.1 K/CMM 0.0 - 0.2 11/[address] [facility] HEMATOLOGY Eosinophils # 0.2 K/CMM 0.0 - 0.5 11/[address] [facility] HEMATOLOGY Monocytes # 0.9 K/CMM 0.0 - 0.8 11/[address] [facility] HEMATOLOGY Lymphocytes # 2.9 K/CMM 1.0 - 5.5 11/[address] [facility] HEMATOLOGY Monocytes 10.3 % 2.0 - 12.0 11/[address] [facility] HEMATOLOGY Lymphocytes 33.6 % 20.0 - 11/[address] [place] [address] [facility] HEMATOLOGY Segs-Bands # 4.6 K/CMM 1.5 - 8.1 11/[address] [facility] HEMATOLOGY Basophils 0.7 % 0.0 - 1.0 11/[address] [facility] HEMATOLOGY Eosinophils 2.1 % 0.0 - 4.0 11/[address] [facility] CHEMISTRY Lipase Lvl 43 unit/L 73 - 393 11/[address] [facility] CHEMISTRY Amylase Lvl 14 unit/L 25 - 115 11/[address] [facility] CHEMISTRY A/G Ratio 0.8 0.7 - 1.6 11/[address] [facility] CHEMISTRY AST 56 unit/L 0 - 37 11/[address] [facility] CHEMISTRY Alk Phos 67 unit/L 39 - 136 11/[address] [facility] CHEMISTRY Globulin 2.9 g/dL 2.0 - 4.0 11/[address] [facility] CHEMISTRY Total Protein 5.3 g/dL 6.4 - 8.4 11/[address] [facility] CHEMISTRY Albumin Lvl 2.4 g/dL 3.5 - 5.0 11/[address] [facility] CHEMISTRY ALT 41 unit/L 0 - 65 11/[address] [facility] CHEMISTRY Bili Indirect 0.3 mg/dL 0.0 - 1.0 11/[address] [facility] CHEMISTRY Bili Direct 0.1 mg/dL 0.0 - 0.3 11/[address] [facility] CHEMISTRY Bili Total 0.4 mg/dL 0.2 - 1.3 11/[address] [facility] CHEMISTRY eGFR 137 11/13 NA 7Result Comment: The eGFR is calculated using the CKD-EPI formula. In most young, healthy individuals the eGFR will be > 90 mL/min/1.73m2. The eGFR declines with age. An eGFR of 60-89 may be normal in [facility] mL/min/1. some populations, particularly the elderly, for whom the CKD-EPI formula has not been extensively validated. Use of the eGFR is not recommended in the following populations: [address] Individuals with unstable creatinine concentrations, including [...] AGAP 17.3 meq/L 10.0 - 11/13 Normal [facility] 20.0 [facility] CHEMISTRY Calcium Lvl 6.7 mg/dL 8.5 - 10.5 11/13 CRIT 13Result Comment: [facility] Result(s) called to tino gustafson at _11/13/2012 06:59:47 CDT bylg. Read back OK. CHEMISTRY CO2 17 meq/L 24 - 32 11/13 LOW [facility] CHEMISTRY Chloride Lvl 111 meq/L 95 - 109 11/13 HI [facility] CHEMISTRY Potassium Lvl 3.3 meq/L 3.5 - 5.1 11/13 LOW 5Result Comment: Medical Specimen Center Slightly Hemolyzed. CHEMISTRY Sodium Lvl 142 meq/L 135 - 145 11/13 Normal [facility] CHEMISTRY Creatinine 0.3 mg/dL 0.5 - 1.4 11/13 LOW [place] Lvl /2012 Medical Center CHEMISTRY BUN 3 mg/dL 7 - 22 11/13 [facility] CHEMISTRY Glucose Lvl 104 mg/dL 70 - 99 11/13 HI 10Interpretive Data: Adult reference range values reflect the clinical guidelines of the [place] [employer]. Medical Center CHEMISTRY Magnesium Lvl 1.3 mg/dL 1.8 - 2.4 11/13 LOW [facility] CHEMISTRY Phosphorus 2.8 mg/dL 2.5 - 4.5 11/[address] [facility] CHEMISTRY Ca Ion 1.01 1. - 11/13 [facility] [place] mMol/L 1. [facility] CHEMISTRY Ca Norm 1.07 1.16 - 11/13 [facility] mMol/L 1. [facility] CHEMISTRY Ca Norm mgdL 4.28 mg/dL 4.65 - 11/13 [facility] . [facility] CHEMISTRY Ca Ion mgdL 4.04 mg/dL 4.65 - 11/13 [facility] 5.20 Medical Center HEMATOLOGY MCV 78.6 fL 81.0 - 11/13 [facility] 99.0 /2012 Medical [place] HEMATOLOGY MPV 9.1 fL 7.4 - 10.4 11/[address] [facility] HEMATOLOGY MCHC 31.1 g/dL 32.0 - 11/13 [facility] 36.0 Medical [place] HEMATOLOGY MCH 24.4 pg 27.0 - 11/13 [facility] [place] [address] [facility] HEMATOLOGY Hct 29.4 % 36.0 - 03 [facility] 48.0 /2012 [facility] HEMATOLOGY RDW 19.1 % 11.5 - 0310 [facility] [place] 14.5 Medical Center HEMATOLOGY Platelet 192 K/CMM 133 - 450 11/[address] [facility] HEMATOLOGY Hgb 9.1 g/dL 12.0 - 03 [facility] [place] 16.[address] [facility] HEMATOLOGY RBC 3.74 M/CMM 4.20 - 03 [facility] [place] 5.40 /2012 Medical Center HEMATOLOGY WBC 6.8 K/CMM 3.7 - 10.4 11/13 Normal [facility] HEMATOLOGY Plt Morph Normal 11/13 Normal Medical (11/13/2012 05:00:00) [place] HEMATOLOGY Atypical 0.0 % <=0.0 11/13 Normal [facility] Lymph [facility] HEMATOLOGY RBC Morph Normal 11/13 Normal Medical (11/13/2012 05:00:00) [place] HEMATOLOGY Eosinophils 2.0 % 0.0 - 4.0 11/[address] [facility] HEMATOLOGY Bands 0.0 % 0.0 - 11.0 11/[address] [facility] HEMATOLOGY Segs 51.0 % 45.0 - 11/[address] [place] [address] [facility] HEMATOLOGY Eosinophils # 0.1 K/CMM 0.0 - 0.5 11/[address] [facility] HEMATOLOGY Segs-Bands # 3.5 K/CMM 1.5 - 8.1 11/[address] [facility] HEMATOLOGY Monocytes 5.0 % 2.0 - 12.0 11/[address] [facility] HEMATOLOGY Lymphocytes 42.0 % 20.0 - 11/13 HI [facility] 40.[address] [facility] HEMATOLOGY Monocytes # 0.3 K/CMM 0.0 - 0.8 11/[address] [facility] HEMATOLOGY Lymphocytes # 2.9 K/CMM 1.0 - 5.5 11/13 Normal [facility]2012 [facility] INFECTIOUS C difficile Negative 1 Negative 11/13 Normal 1Interpretive Data: [employer] Clostridium difficile assay utilizes loop-mediated isothermal DNA amplification (LAMP) technology to detect a 204 bp region of the tcdA gene within the PaLoc gene [facility] segment present in all known toxigenic C. difficile strains. [facility] (11/12/2012 21:54:26) [place] The assay utilizes FDA cleared IVD reagents. Performance characteristics have been verified by the Molecular Diagnostic Laboratory within the [facility]. The Molecular Diagnostic Laboratory is authorized under the Clinical Laboratory Improvement Amendment of 1988 (CLIA-88) to perform high complexity testing. CHEMISTRY Total CK 25 unit/L 12 - 191 11/[address] [facility] CHEMISTRY Troponin-I null 0.00 - 11/12 Normal [facility] [address].40 [facility] CHEMISTRY eGFR 88 11/12 NA 8Result Comment: The eGFR is calculated using the CKD-EPI formula. In most young, healthy individuals the eGFR will be > 90 mL/min/1.73m2. The eGFR declines with age. An eGFR of 60-89 may be normal in [facility] [facility] mL/min/1. some populations, particularly the elderly, for whom the CKD-EPI formula has not been extensively validated. Use of the eGFR is not recommended in the following populations: [facility] Individuals with unstable creatinine concentrations, [...] AGAP 13.7 meq/L 10.0 - 11/12 Normal [facility] 20.0 [facility] CHEMISTRY Calcium Lvl 8.5 mg/dL 8.5 - 10.5 11/[address] [facility] CHEMISTRY CO2 25 meq/L 24 - 32 11/[address] [facility] CHEMISTRY Potassium Lvl 3.7 meq/L 3.5 - 5.1 11/[address] [facility] CHEMISTRY Sodium Lvl 138 meq/L 135 - 145 11/[address] [facility] CHEMISTRY Chloride Lvl 103 meq/L 95 - 109 11/[address] [facility] CHEMISTRY Creatinine 0.8 mg/dL 0.5 - 1.4 11/[address] [facility] CHEMISTRY BUN 5 mg/dL 7 - 22 11/[address] [facility] CHEMISTRY Glucose Lvl 40 mg/dL 70 - 99 11/12 CRIT 12Interpretive Data: Adult reference range values reflect the clinical guidelines of the [place] [employer]. [facility] CHEMISTRY Ca Norm mgdL 4.20 mg/dL 4.65 - 11/12 LOW [facility] 01.23 [facility] CHEMISTRY Ca Norm 1.05 1.16 - 11/12 LOW [place] mMol/L 10.05 [facility] CHEMISTRY Ca Ion mgdL 4.00 mg/dL 4.65 - 11/12 LOW [facility] 01.23 [facility] CHEMISTRY Ca Ion 1.00 1.16 - 11/12 LOW [place] mMol/L 10.05 [facility] CHEMISTRY Magnesium Lvl 1.9 mg/dL 1.8 - 2.4 11/[address] [facility] CHEMISTRY Phosphorus 3.2 mg/dL 2.5 - 4.5 11/[address] [facility] HEMATOLOGY MCHC 32.0 g/dL 32.0 - 11/12 Normal [facility] 36.0 /2012 [facility] HEMATOLOGY MCH 24.1 pg 27.0 - 11/12 LOW [facility] 31.0 [facility] HEMATOLOGY MCV 75.3 fL 81.0 - 11/12 [facility] 99.0 /2012 [facility] HEMATOLOGY WBC 9.2 K/CMM 3.7 - 10.4 11/[address] [facility] HEMATOLOGY Platelet 233 K/CMM 133 - 450 11/[address] [facility] HEMATOLOGY MPV 9.1 fL 7.4 - 10.4 11/[address] [facility] HEMATOLOGY RDW 19.0 % 11.5 - 03 [facility] 14.5 [facility] HEMATOLOGY RBC 4.19 M/CMM 4.20 - 11/12 [facility] 5.40 /2012 [facility] HEMATOLOGY Hgb 10.1 g/dL 12.0 - 11/12 [facility] 16.0 [facility] HEMATOLOGY Hct 31.6 % 36.0 - 03 [facility] 48.[address] [facility] HEMATOLOGY Hypochrom Slight None Seen 11/12 [facility] (11/12/2012 00:19:00) Center HEMATOLOGY Large Plt Slight None Seen 11/12 [facility] Medical *ABN* Center (11/12/2012 00:19:00) HEMATOLOGY Atypical 0.0 % <=0.0 11/12 [facility] Lymph[facility] HEMATOLOGY Basophils 1.0 % 0.0 - 1.0 11/[address] [facility] HEMATOLOGY Lymphocytes 39.0 % 20.0 - 03 [facility] [address] [facility] HEMATOLOGY Bands 0.0 % 0.0 - 11.0 11/12 [facility] HEMATOLOGY Eosinophils 2.0 % 0.0 - 4.0 11/[address] [facility] HEMATOLOGY Monocytes 6.0 % 2.0 - 12.0 11/[address] [facility] HEMATOLOGY Segs 52.0 % 45.0 - 03/[address] [place] [address] [facility] HEMATOLOGY Basophils # 0.1 K/CMM 0.0 - 0.2 11/[address] [facility] HEMATOLOGY Monocytes # 0.6 K/CMM 0.0 - 0.8 11/12 Normal [facility] HEMATOLOGY Lymphocytes # 3.6 K/CMM 1.0 - 5.5 11/[address] [facility] HEMATOLOGY Segs-Bands # 4.8 K/CMM 1.5 - 8.1 11/[address] [facility] HEMATOLOGY Eosinophils # 0.2 K/CMM 0.0 - 0.5 11/12 Normal [facility] HEMATOLOGY Microcyte 1+ None Seen 11/11 [facility] *[facility]* [place] (11/11/2012 03:41:00) HEMATOLOGY Basophils # 0.1 K/CMM 0.0 - 0.2 11/11 Normal [facility] HEMATOLOGY Basophils 0.7 % 0.0 - 1.0 11/[address] [facility] HEMATOLOGY Microcyte 1+ None Seen 11/09 [facility] *[facility]* [place] (11/09/2012 05:12:00) URINALYSIS UA pH 5.0 5.0 - 8.0 11/[address] [facility] URINALYSIS UA Protein 20 mg/dL Negative 11/08 [facility] [place] (11/07/2012 20:54:00) URINALYSIS UA Turbidity Slight Clear 11/08 [facility] *[facility]* [place] (11/07/2012 20:54:00) URINALYSIS UA Spec Grav 1.010 <=1.030 11/[address] [facility] URINALYSIS UA Color Yellow Yellow 11/08 [facility] [place] (11/07/2012 20:54:00) URINALYSIS UA Bacteria Moderate /HPF None Seen 11/08 [facility] [place] (11/07/2012 20:54:00) URINALYSIS UA Mucus Few /LPF None Seen 11/08 [facility] (11/07/2012 20:54:00) URINALYSIS UA WBC null 0 - 5 11/[address] [facility] URINALYSIS UA RBC 4 /HPF 0 - 2 11/[address] [facility] URINALYSIS UA Sq Epi Moderate /LPF Few 11/08 ABN [facility] *ABN* Center (11/07/2012 20:54:00) URINALYSIS UA Leuk Est Large Negative 11/08 ABN [facility] *ABN* Center (11/07/2012 20:54:00) URINALYSIS UA Blood Trace Negative 11/08 ABN [facility] *ABN* [place] (11/07/2012 20:54:00) URINALYSIS UA Nitrite Negative Negative 11/08 Normal [facility] (11/07/2012 20:54:00) Center URINALYSIS UA Ketones 40 mg/dL Negative 11/08 [facility] [place] (11/07/2012 20:54:00) URINALYSIS UA Bili Negative Negative 11/08 NA [facility] *NA* [place] (11/07/2012 20:54:00) URINALYSIS Micro? Performed 11/08 NA [facility] *NA* Center (11/07/2012 20:54:00) URINALYSIS UA <=1.0 0.1 - 1.0 11/08 [facility] Urobilinogen mg/dL Medical
*NA*< Center br/>(11/07 20:54:00) <sup> </sup> URINALYSIS UA Glucose >=1000mg/d 11/08 NA [facility] URINALYSIS UA Hyal Cast 37 /LPF 0 - 2 11/[address] [facility] URINALYSIS UA Ketones 40 mg/dL Negative 11/07 [facility] *ABN* Center (11/07/2012 06:24:57) CHEMISTRY Hgb A1C 8.2 % 11/07 NA 14Interpretive Data: HbA1C% eAG( mg/dL) Interpretation 6.0 126 Very good control [facility] 6.5 140 Very good control [place] 7.0 154 Good Control 7.5 169 Good Control 8.0 183 Marginal Control, take action to lower 8.5 197 Marginal Control, take action to lower 9.0 212 Poor Control, take action to lower 9.5 226 Poor Control, take action to lower 10.0 240 Poor Control, take action to lower CHEMISTRY Ketone 2.20 <=0.27 11/06 [facility] [place] Quantitative mmol/L /2012 Medical [place] CHEMISTRY U Osmolality 207 300 - 800 11/06 LOW [facility] mOsm/kg Medical [place] CHEMISTRY POC A %FIO2 21.0 % 18.0 - 11/06 Normal [facility] 100.0 Medical [place] CHEMISTRY POC A LA 0.9 mMol/L 0.5 - 2.2 11/[address] [facility] CHEMISTRY POC A Glu 281 mg/dL 70 - 99 11/[address] [facility] CHEMISTRY POC A Temp 37.0 Abby 11/[address] [facility] CHEMISTRY POC A Source ART 11/[address] [facility] CHEMISTRY POC A pH 7.45 7.35 - 11/06 Normal [facility] [address].45 [facility] CHEMISTRY POC A HCO3 24 mMol/L 22 - [address] [facility] CHEMISTRY POC A PCO2 35 mm[Hg] 35 - 45 11/[address] [facility] CHEMISTRY POC A PO2 85 mm[Hg] 80 - [address] [facility] CHEMISTRY POC A BE 0 mMol/L -2-2 - 2 11/[address] [facility] CHEMISTRY POC A O2 Sat 97.0 % 95.0 - 11/06 Normal [facility] 100.0 [facility] CHEMISTRY POC A Na 123 meq/L 135 - 145 11/[address] [facility] CHEMISTRY POC A Hct 31.0 % 36.0 - 11/06 [facility] [address] [facility] CHEMISTRY POC A Ca Ion 1.11 1.16 - 11/06 [facility] mMol/L 1.30 [facility] CHEMISTRY POC A K 3.7 meq/L 3.5 - 5.1 11/[address] [facility] CHEMISTRY POC A BE -4 mMol/L -2-2 - 2 11/[address] [facility] CHEMISTRY POC A HCO3 20 mMol/L 22 - [address] [facility] CHEMISTRY POC A Source ART 11/[address] [facility] CHEMISTRY POC A Temp 37.0 Abby 11/[address] [facility] CHEMISTRY POC A pH 7.42 7.35 - 11/06 [facility] 7.45 /2012 [facility] CHEMISTRY POC A PO2 81 mm[Hg] 80 - 100 11/[address] [facility] CHEMISTRY POC A O2 Sat 96.0 % 95.0 - 11/06 Normal [facility] 100.0 [facility] CHEMISTRY POC A PCO2 31 mm[Hg] 35 - 45 11/[address] [facility] CHEMISTRY POC A %FIO2 21.0 % 18.0 - 03 Normal [facility] 100.0 /2012 [facility] Microbiolog Culture: 11/06 [facility] y Urine /2012 [facility] CHEMISTRY Troponin-I null 0.00 - 11/06 Normal [facility] 0.40 /2012 [facility] CHEMISTRY Troponin-T null 0.000 - 11/06 Normal [facility] 0.100 /2012 [facility] CHEMISTRY Total CK 48 unit/L 12 - 191 11/[address] [facility] URINALYSIS UA <=1.0 0.1 - 1.0 11/06 [facility] Urobilinogen mg/dL Medical
*NA*< Center br/>(11/06 03:15:40) <sup> </sup> URINALYSIS UA Leuk Est Large Negative 11/06 [facility] Medical *ABN* Center (11/06/2012 03:15:40) URINALYSIS UA Sq Epi Moderate /LPF Few 11/06 [facility] Medical *ABN* Center (11/06/2012 03:15:40) URINALYSIS UA Mucus Few /LPF None Seen 11/06 [facility] *NA* Center (11/06/2012 03:15:40) URINALYSIS UA Nitrite Negative Negative 11/06 Normal Medical (11/06/2012 03:15:40) Center URINALYSIS UA Bacteria Occasional /HPF None Seen 11/06 [facility] *NA* Center (11/06/2012 03:15:40) URINALYSIS UA WBC 67 /HPF 0 - 5 11/06 [facility] URINALYSIS UA Blood Negative Negative 11/06 Normal [facility] (11/06/2012 03:15:40) Center URINALYSIS UA Bili Negative Negative 11/06 [facility] Medical *NA* Center (11/06/2012 03:15:40) URINALYSIS UA Ketones 60 mg/dL Negative 11/06 ABN [facility] *ABN* Center (11/06/2012 03:15:40) URINALYSIS UA pH 5.0 5.0 - 8.0 11/[address] [facility] URINALYSIS UA Glucose >=1000 mg/dL Negative 11/06 ABN [facility] *ABN* Center (11/06/2012 03:15:40) URINALYSIS UA Spec Grav 1.014 <=1.030 11/[address] [facility] URINALYSIS UA Protein Negative mg/dL Negative 11/06 Normal Medical (11/06/2012 03:15:40) Center URINALYSIS UA Turbidity Slight Clear 11/06 ABN [facility] *ABN* Center (11/06/2012 03:15:40) URINALYSIS UA Color Yellow Yellow 11/06 NA [facility] *NA* Center (11/06/2012 03:15:40) CHEMISTRY Troponin-I 0.02 ng/mL 0.00 - 11/06 Normal [facility] [address] [facility] CHEMISTRY Total CK 30 unit/L 12 - 191 11/[address] [facility] CHEMISTRY Troponin-T null 0.000 - 11/06 Normal [facility] [address] [facility] CHEMISTRY Ketone 3.00 <=0.27 11/06 [facility] Quantitative mmol/L /2012 [facility] CHEMISTRY Lipase Lvl 89 unit/L 73 - 393 11/[address] [facility] CHEMISTRY Globulin 4.3 g/dL 2.0 - 4.0 11/[address] [facility] CHEMISTRY A/G Ratio 0.9 0.7 - 1.6 11/[address] [facility] CHEMISTRY B/C Ratio 7 6 - 25 11/[address] [facility] CHEMISTRY Albumin Lvl 3.7 g/dL 3.5 - 5.0 11/[address] [facility] CHEMISTRY Total Protein 8.0 g/dL 6.4 - 8.4 11/[address] [facility] CHEMISTRY ALT 62 unit/L 0 - 65 11/[address] [facility] CHEMISTRY Alk Phos 119 unit/L 39 - 136 11/[address] [facility] CHEMISTRY Bili Total 0.5 mg/dL 0.2 - 1.3 11/06 [facility] CHEMISTRY AST 44 unit/L 0 - 37 11/06 [facility] HEMATOLOGY Polychrom Slight None Seen 11/06 Normal Medical (11/05/2012 20:40:00) Center HEMATOLOGY Hypochrom Slight None Seen 11/06 Normal Medical (11/05/2012 20:40:00) Center HEMATOLOGY Bands 1.0 % 0.0 - 11.0 11/[address] [facility] HEMATOLOGY Anisocyte 1+ None Seen 11/06 ABN Medical *ABN* Center (11/05/2012 20:40:00) HEMATOLOGY Atypical 0.0 % <=0.0 11/06 Normal [facility] Lymph [facility] HEMATOLOGY Macrocyte 1+ None Seen 11/06 [facility] *ABN* [place] (11/05/2012 20:40:00) HEMATOLOGY Plt Morph Normal 11/06 Normal [facility] (11/05/2012 20:40:00) Center HEMATOLOGY INR 0.98 0.85 - 11/06 Normal 16Interpretive Data: RECOMMENDED RANGES FOR PROTIME INR: [facility] . 2.0-3.0 for most medical and surgical thromboembolic states. Medical 2.5-3.5 for artificial heart valves and recurrent embolism. Center INR SHOULD BE USED ONLY FOR PATIENTS ON STABLE ANTICOAGULANT THERAPY. HEMATOLOGY PT 13.2 s 12.0 - 11/06 Normal [facility] 14.7 /2012 Medical Center HEMATOLOGY PTT 26.4 s 22.9 - 11/06 Normal 17Interpretiv [facility] 35.8 /2012 e Data: [facility] Therapeutic Range: 57 - 92 Seconds BEDSIDE Gluc POC null 11/01 CRIT 3Interpretive [facility] GLUCOSE [place] Data: Medical TESTING Center Upper Reportable Limit: 200 mg/dL. BEDSIDE Comment1 Notify 11/01 NA [facility] GLUCOSE RN/MD /2012 [facility] Center BEDSIDE Gluc POC 237 mg/dL 10/31 HI 4Interpretive [facility] GLUCOSE [place] Data: Medical TESTING Center Upper Reportable Limit: 200 mg/dL. BEDSIDE Gluc POC 357 mg/dL 10/31 HI 5Interpretive [facility] GLUCOSE [employer] Data: Medical TESTING Center Upper Reportable Limit: 200 mg/dL. BEDSIDE Comment1 Notify 10/31 NA [facility] GLUCOSE RN/MD [facility] CHEMISTRY Phosphorus 4.2 mg/dL 2.5 - 4.5 10/[address] [facility] CHEMISTRY Ca Norm mgdL 4.64 mg/dL 4.65 - 10/31 [facility] 5. [facility] CHEMISTRY Ca Ion mgdL 4.44 mg/dL 4.65 - 10/31 [facility] 5. [facility] CHEMISTRY Ca Norm 1.16 1.16 - 10/31 Normal [facility] mMol/L 1. [facility] CHEMISTRY Ca Ion 1.11 1.16 - 10/31 [facility] mMol/L . [facility] CHEMISTRY AGAP 16.9 meq/L 10.0 - 10/31 [facility] . [facility] CHEMISTRY eGFR 67 10/31 NA 7Result Comment: The eGFR is calculated using the CKD-EPI formula. In most young, healthy individuals the eGFR will be > 90 mL/min/1.73m2. The eGFR declines with age. An eGFR of 60-89 may be normal in [facility] mL/min/1.7 some populations, particularly the elderly, for whom the CKD-EPI formula has not been extensively validated. Use of the eGFR is not recommended in the following populations: [address] Individuals with unstable creatinine concentrations, including [...] 1.0 mg/dL 0.5 - 1.4 10/31 Normal [facility] Lvl [facility] CHEMISTRY Sodium Lvl 133 meq/L 135 - 145 10/[address] [facility] CHEMISTRY Calcium Lvl 8.3 mg/dL 8.5 - 10.5 10/[address] [facility] CHEMISTRY Potassium Lvl 3.9 meq/L 3.5 - 5.1 10/[address] [facility] CHEMISTRY Chloride Lvl 94 meq/L 95 - 109 10/[address] [facility] CHEMISTRY CO2 26 meq/L 24 - 32 10/[address] [facility] CHEMISTRY BUN 8 mg/dL 7 - [address] [facility] CHEMISTRY Glucose Lvl 75 mg/dL 70 - 99 10/31 Normal 10Interpretive Data: Adult reference range values reflect the clinical guidelines of the [place] [employer]. [facility] CHEMISTRY Magnesium Lvl 1.9 mg/dL 1.8 - 2.4 10/[address] [facility] HEMATOLOGY MPV 9.4 fL 7.4 - 10.4 10/[address] [facility] HEMATOLOGY Hgb 9.7 g/dL 12.0 - 10/31 LOW [facility] 16.0 [facility] HEMATOLOGY RBC 4.06 M/CMM 4.20 - 10/31 [facility] 5.40 /2012 [facility] HEMATOLOGY MCV 74.3 fL 81.0 - 10/31 [facility] 99.[address] [facility] HEMATOLOGY Hct 30.2 % 36.0 - 10/31 LOW [facility] [address].0 [facility] HEMATOLOGY MCHC 32.2 g/dL 32.0 - 10/31 Normal [facility] 36.0 [facility] HEMATOLOGY MCH 23.9 pg 27.0 - 10/31 [facility] 31.[address] [facility] HEMATOLOGY Platelet 199 K/CMM 133 - 450 10/[address] [facility] HEMATOLOGY RDW 17.5 % 11.5 - 10/31 [facility] 14.5 [facility] HEMATOLOGY WBC 9.4 K/CMM 3.7 - 10.4 10/[address] [facility] HEMATOLOGY Lymphocytes # 2.7 K/CMM 1.0 - 5.5 10/[address] [facility] HEMATOLOGY Basophils 0.6 % 0.0 - 1.0 10/[address] [facility] HEMATOLOGY Segs-Bands # 5.2 K/CMM 1.5 - 8.1 10/[address] [facility] HEMATOLOGY Microcyte 1+ None Seen 10/31 ABN Medical *ABN* Center (10/31/2012 04:00:00) HEMATOLOGY Monocytes # 1.1 K/CMM 0.0 - 0.8 10/[address] [facility] HEMATOLOGY Eosinophils # 0.3 K/CMM 0.0 - 0.5 10/[address] [facility] HEMATOLOGY Basophils # 0.1 K/CMM 0.0 - 0.2 10/[address] [facility] HEMATOLOGY Segs 55.2 % 45.0 - 10/31 Normal [facility] 75.[address] [facility] HEMATOLOGY Monocytes 11.8 % 2.0 - 12.0 10/[address] [facility] HEMATOLOGY Lymphocytes 28.9 % 20.0 - 10/31 Normal [facility] 40.0 [facility] HEMATOLOGY Eosinophils 3.5 % 0.0 - 4.0 10/[address] [facility] BEDSIDE Comment1 Notify 10/31 NA [facility] GLUCOSE RN/MD [facility] CHEMISTRY Ca Norm mgdL 4.92 mg/dL 4.65 - 10/30 Normal [facility] [address]. [facility] CHEMISTRY Ca Ion mgdL 4.76 mg/dL 4.65 - 10/30 Normal [facility] [address]. [facility] CHEMISTRY Ca Norm 1.23 1.16 - 10/30 Normal [facility] mMol/L 1. [facility] CHEMISTRY Ca Ion 1.19 1.16 - 10/30 Normal [facility] mMol/L 1. [facility] CHEMISTRY Phosphorus 3.8 mg/dL 2.5 - 4.5 10/[address] [facility] CHEMISTRY Magnesium Lvl 1.9 mg/dL 1.8 - 2.4 10/30 Normal [facility] CHEMISTRY eGFR 88 10/30 NA 8Result Comment: The eGFR is calculated using the CKD-EPI formula. In most young, healthy individuals the eGFR will be > 90 mL/min/1.73m2. The eGFR declines with age. An eGFR of 60-89 may be normal in [facility] mL/min/1.7 some populations, particularly the elderly, for whom the CKD-EPI formula has not been extensively validated. Use of the eGFR is not recommended in the following populations: [place] [address] Center Individuals with unstable creatinine concentrations, including [...] values reflect the clinical guidelines of the [place] [employer]. Medical Center CHEMISTRY Creatinine 0.8 mg/dL 0.5 - 1.4 10/30 Normal [facility] Lvl [facility] CHEMISTRY BUN 6 mg/dL 7 - 22 10/30 LOW Medical [place] CHEMISTRY Sodium Lvl 132 meq/L 135 - 145 10/30 LOW [facility] CHEMISTRY Calcium Lvl 8.5 mg/dL 8.5 - 10.5 10/30 Normal [facility] CHEMISTRY CO2 29 meq/L 24 - 32 10/[address] [facility] CHEMISTRY Chloride Lvl 92 meq/L 95 - 109 10/[address] [facility] CHEMISTRY Potassium Lvl 3.8 meq/L 3.5 - 5.1 10/[address] [facility] CHEMISTRY AGAP 14.8 meq/L 10.0 - 10/30 Normal [facility] 20.0 [facility] HEMATOLOGY Platelet 245 K/CMM 133 - 450 10/[address] [facility] HEMATOLOGY MPV 9.4 fL 7.4 - 10.4 10/[address] [facility] HEMATOLOGY Hct 33.1 % 36.0 - 10/30 [facility] 48.0 /2012 [facility] HEMATOLOGY RBC 4.47 M/CMM 4.20 - 10/30 Normal [facility] 5.40 /2012 [facility] HEMATOLOGY WBC 11.0 K/CMM 3.7 - 10.4 10/30 [facility] Medical [place] HEMATOLOGY Hgb 10.6 g/dL 12.0 - 10/30 [facility] 16.0 /2012 [facility] HEMATOLOGY MCHC 31.9 g/dL 32.0 - 10/30 LOW [facility] 36.0 /2012 Medical Center HEMATOLOGY MCV 74.1 fL 81.0 - 10/30 [facility] 99.[address] [facility] HEMATOLOGY MCH 23.7 pg 27.0 - 10/30 [facility] 31.0 [facility] HEMATOLOGY RDW 16.9 % 11.5 - 10/30 [facility] 14.5 /2012 Medical [place] HEMATOLOGY PTT 28.1 s 22.9 - 10/30 Normal 25Interpretiv [facility] 35.8 /2012 e Data: [facility] Therapeutic Range: 57 - 92 Seconds HEMATOLOGY PT 13.7 s 12.0 - 10/30 Normal [facility] 14.7 /2012 [facility] HEMATOLOGY INR 1.03 0.85 - 10/30 Normal 22Interpretive Data: RECOMMENDED RANGES FOR PROTIME INR: [facility] 1. 2.0-3.0 for most medical and surgical thromboembolic states. Medical 2.5-3.5 for artificial heart valves and recurrent embolism. Center INR SHOULD BE USED ONLY FOR PATIENTS ON STABLE ANTICOAGULANT THERAPY. HEMATOLOGY Segs-Bands # 7.5 K/CMM 1.5 - 8.1 10/[address] [facility] HEMATOLOGY Basophils 0.4 % 0.0 - 1.0 10/[address] [facility] HEMATOLOGY Monocytes # 1.1 K/CMM 0.0 - 0.8 10/[address] [facility] HEMATOLOGY Lymphocytes # 2.1 K/CMM 1.0 - 5.5 10/[address] [facility] HEMATOLOGY Microcyte 1+ None Seen 10/30 ABN Medical *ABN* Center (10/30/2012 00:20:00) HEMATOLOGY Eosinophils # 0.2 K/CMM 0.0 - 0.5 10/[address] [facility] HEMATOLOGY Segs 68.3 % 45.0 - 10/30 Normal [facility] 75.0 [facility] HEMATOLOGY Lymphocytes 18.9 % 20.0 - 10/30 LOW [facility] [address] [facility] HEMATOLOGY Monocytes 10.3 % 2.0 - 12.0 10/[address] [facility] HEMATOLOGY Eosinophils 2.1 % 0.0 - 4.0 10/[address] [facility] CHEMISTRY Magnesium Lvl 2.1 mg/dL 1.8 - 2.4 10/[address] [facility] CHEMISTRY Phosphorus 4.1 mg/dL 2.5 - 4.5 10/[address] [facility] CHEMISTRY Ca Ion mgdL 3.96 mg/dL 4.65 - 10/29 LOW [facility] [address].20 [facility] CHEMISTRY Ca Norm 1.01 1. - 10/29 LOW [facility] mMol/L 1. [facility] CHEMISTRY Ca Ion 0.99 1.16 - 10/29 LOW [facility] mMol/L 1. [facility] CHEMISTRY Ca Norm mgdL 4.04 mg/dL 4.65 - 10/29 LOW [facility] 5.20 [facility] CHEMISTRY eGFR 104 10/29 NA 9Result Comment: The eGFR is calculated using the CKD-EPI formula. In most young, healthy individuals the eGFR will be > 90 mL/min/1.73m2. The eGFR declines with age. An eGFR of 60-89 may be normal in [facility] mL/min/1.7 some populations, particularly the elderly, for whom the CKD-EPI formula has not been extensively validated. Use of the eGFR is not recommended in the following populations: [address] Individuals with unstable creatinine concentrations, including [...] 0.7 mg/dL 0.5 - 1.4 10/[address] [facility] CHEMISTRY BUN 3 mg/dL 7 - 22 10/[address] [facility] CHEMISTRY Calcium Lvl 8.9 mg/dL 8.5 - 10.5 10/[address] [facility] CHEMISTRY Glucose Lvl 90 mg/dL 70 - 99 10/29 Normal 12Interpretive Data: Adult reference range values reflect the clinical guidelines of the [place] [employer]. [facility] CHEMISTRY Chloride Lvl 99 meq/L 95 - 109 10/[address] [facility] CHEMISTRY Potassium Lvl 4.4 meq/L 3.5 - 5.1 10/[address] [facility] CHEMISTRY CO2 27 meq/L 24 - 32 10/[address] [facility] CHEMISTRY Sodium Lvl 139 meq/L 135 - 145 10/[address] [facility] CHEMISTRY AGAP 17.4 meq/L 10.0 - 10/29 Normal [facility] 20.0 [facility] HEMATOLOGY PTT 23.7 s 22.9 - 10/29 Normal 26Interpretiv [facility] 35.8 /2012 e Data: [facility] Therapeutic Range: 57 - 92 Seconds HEMATOLOGY PT 13.4 s 12.0 - 10/29 Normal [facility] 14.[address] [facility] HEMATOLOGY INR 1.00 0.85 - 10/29 Normal 23Interpretive Data: RECOMMENDED RANGES FOR PROTIME INR: [facility] . 2.0-3.0 for most medical and surgical thromboembolic states. Medical 2.5-3.5 for artificial heart valves and recurrent embolism. Center INR SHOULD BE USED ONLY FOR PATIENTS ON STABLE ANTICOAGULANT THERAPY. HEMATOLOGY RDW 17.1 % 11.5 - 10/29 [facility] 14.5 /2012 [facility] HEMATOLOGY MCH 23.8 pg 27.0 - 10/29 [facility] 31.0 /2012 [facility] HEMATOLOGY MCHC 32.2 g/dL 32.0 - 10/29 Normal [facility] 36.0 /2012 [facility] HEMATOLOGY Hct 33.6 % 36.0 - 10/29 [facility] 48.[address] [facility] HEMATOLOGY MCV 74.0 fL 81.0 - 10/29 [facility] 99.0 [facility] HEMATOLOGY Platelet 233 K/CMM 133 - 450 10/29 Normal /2012 [facility] HEMATOLOGY MPV 9.9 fL 7.4 - 10.4 10/[address] [facility] HEMATOLOGY RBC 4.54 M/CMM 4.20 - 10/29 [facility] 5.40 /2012 [facility] HEMATOLOGY Hgb 10.8 g/dL 12.0 - 10/29 [facility] 16.0 [facility] HEMATOLOGY WBC 9.7 K/CMM 3.7 - 10.4 10/[address] [facility] HEMATOLOGY Lymphocytes # 2.6 K/CMM 1.0 - 5.5 10/[address] [facility] HEMATOLOGY Basophils 0.7 % 0.0 - 1.0 10/[address] [facility] HEMATOLOGY Segs-Bands # 6.0 K/CMM 1.5 - 8.1 10/[address] [facility] HEMATOLOGY Monocytes # 0.7 K/CMM 0.0 - 0.8 10/[address] [facility] HEMATOLOGY Eosinophils # 0.3 K/CMM 0.0 - 0.5 10/[address] [facility] HEMATOLOGY Basophils # 0.1 K/CMM 0.0 - 0.2 10/29 [facility] HEMATOLOGY Microcyte 1+ None Seen 10/29 ABN Medical *ABN* Center (10/29/2012 00:56:00) HEMATOLOGY Segs 61.5 % 45.0 - 10/29 Normal [facility] 75.0 [facility] HEMATOLOGY Lymphocytes 26.8 % 20.0 - 10/29 Normal [facility] 40.0 [facility] HEMATOLOGY Monocytes 7.6 % 2.0 - 12.0 10/[address] [facility] HEMATOLOGY Eosinophils 3.4 % 0.0 - 4.0 10/[address] [facility] CHEMISTRY Amylase Lvl 27 unit/L 25 - 115 10/[address] [facility] CHEMISTRY Lipase Lvl 58 unit/L 73 - 393 10/[address] [facility] CHEMISTRY Bili Indirect 0.2 mg/dL 0.0 - 1.0 10/[address] [facility] CHEMISTRY Globulin 3.4 g/dL 2.0 - 4.0 10/[address] [facility] CHEMISTRY A/G Ratio 0.8 0.7 - 1.6 10/[address] [facility] CHEMISTRY AST 24 unit/L 0 - 37 10/[address] [facility] CHEMISTRY Bili Total 0.3 mg/dL 0.2 - 1.3 10/[address] [facility] CHEMISTRY Total Protein 6.2 g/dL 6.4 - 8.4 10/[address] [facility] CHEMISTRY ALT 23 unit/L 0 - 65 10/[address] [facility] CHEMISTRY Albumin Lvl 2.8 g/dL 3.5 - 5.0 10/[address] [facility] CHEMISTRY Alk Phos 85 unit/L 39 - 136 10/[address] [facility] CHEMISTRY Bili Direct 0.1 mg/dL 0.0 - 0.3 10/[address] [facility] HEMATOLOGY PTT 23.9 s 22.9 - 10/28 Normal 27Interpretiv [facility] 35.8 /2012 e Data: [facility] Therapeutic Range: 57 - 92 Seconds HEMATOLOGY PT 13.5 s 12.0 - 10/28 Normal [facility] 14.7 [facility] HEMATOLOGY INR 1.01 0.85 - 10/28 Normal 24Interpretive Data: RECOMMENDED RANGES FOR PROTIME INR: [facility] 1. 2.0-3.0 for most medical and surgical thromboembolic states. Medical 2.5-3.5 for artificial heart valves and recurrent embolism. Center INR SHOULD BE USED ONLY FOR PATIENTS ON STABLE ANTICOAGULANT THERAPY. VIRAL - Influ B Negative 6 Negative 10/28 Normal 6Interpretive [facility] Data: Due Medical (10/27/2012 18:02:02) to [...] - Influ A Negative Negative 10/28 Normal [facility] SEROLOGY Medical (10/27/2012 18:02:02) Center CHEMISTRY Vitamin D, 16 ng/mL 30 - 100 10/25 LOW 13Interpretive Data: Reference range is based on recommendations in the Endocrine [facility] 25-OH, Total /2013 Society Clinical Practice Guideline (J Clin Endocrinol Metab Medical 2011;96:8815-4212) Center CHEMISTRY Hgb A1C 8.4 % 10/25 NA 21Interpretive Data: HbA1C% eAG( mg/dL) Interpretation 6.0 126 Very good control [facility] 6.5 140 Very good control [place] 7.0 154 Good Control 7.5 169 Good Control 8.0 183 Marginal Control, take action to lower 8.5 197 Marginal Control, take action to lower 9.0 212 Poor Control, take action to lower 9.5 226 Poor Control, take action to lower 10.0 240 Poor Control, take action to lower CHEMISTRY LDL 87 mg/dL 0 - 129 10/[address] [facility] CHEMISTRY HDL 35 mg/dL >=35 10/[address] [facility] CHEMISTRY Trig 101 mg/dL 0 - 200 10/[address] [facility] CHEMISTRY Chol 142 mg/dL 120 - 200 10/[address] [facility] CHEMISTRY CHD Risk 4.06 3.90 - 10/25 Normal [facility] [address] [facility] CHEMISTRY Troponin-I 5.43 ng/mL 0.00 - 10/25 CRIT 18Result [facility] 0.40 Comment: Medical Critical Center Result(s) called to Jelani Rasmussen at 10/25/2012 00:47:48 JUNIOR BUSINESS ANALYST by ISAAC. Read back OK. CHEMISTRY Troponin-T 0.693 0.000 - 10/25 CRIT 15Result [facility] ng/mL 0.100 /2012 Comment: Medical Critical Center Result(s) called to daisy otoole at 10/25/2012 01:18:09 JUNIOR BUSINESS ANALYST by tac. Read back OK. HEMATOLOGY Basophils # 0.2 K/CMM 0.0 - 0.2 10/[address] [facility] HEMATOLOGY Plt Morph Normal 10/25 Normal Medical (10/25/2012 00:15:00) Center CHEMISTRY ALT 15 unit/L 0 - 65 10/[address] [facility] CHEMISTRY Albumin Lvl 2.7 g/dL 3.5 - 5.0 10/[address] [facility] CHEMISTRY Bili Total 0.5 mg/dL 0.2 - 1.3 10/[address] [facility] CHEMISTRY Alk Phos 83 unit/L 39 - 136 10/[address] [facility] CHEMISTRY Bili Direct 0.2 mg/dL 0.0 - 0.3 10/[address] [facility] CHEMISTRY Total Protein 5.8 g/dL 6.4 - 8.4 10/[address] [facility] CHEMISTRY AST 41 unit/L 0 - 37 10/[address] [facility] CHEMISTRY Bili Indirect 0.3 mg/dL 0.0 - 1.0 10/[address] [facility] CHEMISTRY Globulin 3.1 g/dL 2.0 - 4.0 10/[address] [facility] CHEMISTRY A/G Ratio 0.9 0.7 - 1.6 10/[address] [facility] CHEMISTRY POC A Mode NC-3LPM 10/[address] [facility] CHEMISTRY POC A HCO3 19 mMol/L 22 - 26 10/[address] [facility] CHEMISTRY POC A O2 Sat 98.0 % 95.0 - 10/24 Normal [facility] 100.[address] [facility] CHEMISTRY POC A BE -6 mMol/L -2-2 - 2 10/[address] [facility] CHEMISTRY POC A PO2 103 mm[Hg] 80 - 100 10/[address] [facility] CHEMISTRY POC A pH 7.35 7.35 - 10/24 [facility] [address] [facility] CHEMISTRY POC A PCO2 34 mm[Hg] 35 - 45 10/24 [facility] Medical Center CHEMISTRY POC A Temp 37.0 Abby 10/24 NA Medical Center CHEMISTRY POC A Source ART 10/24 NA Medical Center CHEMISTRY Troponin-T 0.688 0.000 - 10/24 CRIT 16Result [facility] ng/mL 0.100 Comment: Medical Critical Center Result(s) called to Maribel Bustos at 10/24/2012 13:23:46 JUNIOR BUSINESS ANALYST by lwb . Read back OK. CHEMISTRY Troponin-I 7.61 ng/mL 0.00 - 10/24 CRIT 19Result [place] 0.40 Comment: Medical Critical Center Result(s) called to mariana bustos at _ 10/24/2012 13:37:22 CSTby_lss. Read back OK. CHEMISTRY Total CK 150 unit/L 12 - 10/24 Normal [facility] CHEMISTRY Lactic Acid 0.7 mMol/L 0.5 - 2.2 10/24 Normal [facility] Lvl Medical Center CHEMISTRY CK MB Index 11.0 0.0 - 2.5 10/24 HI [facility] CHEMISTRY CK MB 16.5 ng/mL 0.5 - 3.6 10/24 [facility] Medical Center CHEMISTRY Troponin-T 0.750 0.000 - 10/24 CRIT 17Result [place] ng/mL 0.100 Comment: Medical Critical Center Result(s) called to Lyn King at 10/24/2012 09:52:38 JUNIOR BUSINESS ANALYST by lwb . Read back OK. CHEMISTRY Troponin-I 7.60 ng/mL 0.00 - 10/24 CRIT 20Result [facility] 0.40 Comment: Medical Critical Center Result(s) called to romero beltre at _10/24/2012 09:50:18 JUNIOR BUSINESS ANALYST by_lss. Read back OK. CHEMISTRY Total CK 170 unit/L 12 - 10/24 Normal 14Result Comment: Medical Specimen Center Moderately Hemolyzed. CHEMISTRY CK MB Index 10.5 0.0 - 2.5 10/24 [facility] CHEMISTRY CK MB 17.8 ng/mL 0.5 - 3.6 10/24 [facility] CHEMISTRY Ketone 0.07 <=0.27 10/24 Normal [place] Quantitative mmol/L /2012 Medical Center CHEMISTRY Ketone 2.61 <=0.27 10/24 HI [facility] Quantitative mmol/L Medical Center CHEMISTRY CK MB 30.9 ng/mL 0.5 - 3.6 10/24 [facility] CHEMISTRY CK MB Index 12.2 0.0 - 2.5 10/24 [facility] CHEMISTRY Total CK 254 unit/L 12 - 191 10/24 [facility] CHEMISTRY Lactic Acid 0.6 mMol/L 0.5 - 2.2 10/24 Normal [facility] CHEMISTRY POC V O2 Sat 56.0 % 40.0 - 10/24 Normal [place] 70.0 Medical Center CHEMISTRY POC V HCO3 22 mmol/L 22 - 26 10/24 Normal [facility] CHEMISTRY POC V PO2 32 mm[Hg] 20 - 49 10/24 Normal [facility] CHEMISTRY POC V BE -4 mmol/L -2-2 - 2 10/24 LOW [facility] CHEMISTRY POC V PCO2 41 mm[Hg] 38 - 52 10/24 Normal Medical Center CHEMISTRY POC V pH 7.33 7.28 - 10/24 Normal [facility] 7.42 Medical Center CHEMISTRY POC V Temp 37.0 Abby 10/24 NA Medical Center CHEMISTRY POC V Source MARK 10/24 NA Medical Center CHEMISTRY Ketone 0.93 <=0.27 10/24 [facility] Quantitative mmol/L [facility] Microbiolog Culture: 10/24 y Urine Medical Center CHEMISTRY Lactic Acid 0.6 mMol/L 0.5 - 2.2 10/23 Normal [facility] Microbiolog Culture: 10/23 [facility] y Blood [facility] Center CHEMISTRY POC A Source ART 10/23 NA Medical Center CHEMISTRY POC A PO2 144 mm[Hg] 80 - 100 10/23 [facility] CHEMISTRY POC A Temp 37.0 Abby 10/23 NA Medical Center CHEMISTRY POC A pH 7.35 7.35 - 10/23 LOW [place] 7.45 Medical Center CHEMISTRY POC A Glu 159 mg/dL 70 - 99 10/23 [facility] CHEMISTRY POC A BE -5 mMol/L -2-2 - 2 10/23 LOW [facility] CHEMISTRY POC A O2 Sat 99.0 % 95.0 - 10/23 Normal [facility] [address] [facility] CHEMISTRY POC A Hct 35.0 % 36.0 - 10/23 LOW [facility] [address] [facility] CHEMISTRY POC A HCO3 20 mMol/L 22 - 26 10/[address] [facility] CHEMISTRY POC A PCO2 36 mm[Hg] 35 - 45 10/[address] [facility] CHEMISTRY POC A LA 0.6 mMol/L 0.5 - 2.2 10/[address] [facility] CHEMISTRY POC A Ca Ion 1.20 1.16 - 10/23 Normal [facility] mMol/L 1.30 [facility] CHEMISTRY POC A Na 133 meq/L 135 - 145 10/[address] [facility] CHEMISTRY POC A K 3.8 meq/L 3.5 - 5.1 10/[address] [facility] CHEMISTRY A/G Ratio 0.8 0.7 - 1.6 10/[address] [facility] CHEMISTRY AST 90 unit/L 0 - 37 10/[address] [facility] CHEMISTRY Globulin 3.9 g/dL 2.0 - 4.0 10/[address] [facility] CHEMISTRY B/C Ratio 16 6 - 25 10/[address] [facility] CHEMISTRY Total Protein 7.2 g/dL 6.4 - 8.4 10/[address] [facility] CHEMISTRY Bili Total 0.5 mg/dL 0.2 - 1.3 10/[address] [facility] CHEMISTRY Albumin Lvl 3.3 g/dL 3.5 - 5.0 10/[address] [facility] CHEMISTRY Alk Phos 94 unit/L 39 - 136 10/[address] [facility] CHEMISTRY ALT 23 unit/L 0 - 65 10/[address] [facility] CHEMISTRY Osmolality 292 280 - 300 10/23 Normal [facility] mOsm/kg [facility] CHEMISTRY Myoglobin 128 ng/mL 25 - 72 10/[address] [facility] Microbiolog Culture: 10/23 [facility] y [facility] Screen BACTERIAL - MRSA by PCR Positive 1, 2 10/23 ABN 2Interpretive Data: Interpretive Data: The [employer] Light[employer] MRSA assay is a qualitative test for the direct detection of nasal colonization with methicillin-resistant Staphylococcus aureus (MRSA) to aid [facility] in the prevention and control of MRSA infections in healthcare settings. A positive result does not indicate an infection or require treatment. A negative result does not exclude colonization or infection. Medical *[facility]* [place] The polymerase chain reaction (PCR) assay detects a proprietary sequence indicative of the integration of the SCCmec cassette into the Staphylococcus aureus chromosome, indicating the presence of MRSA D (10/23/2012 11:37:00) NA. The assay utilizes FDA cleared IVD reagents. Performance characteristics have been verified by the Molecular Diagnostic Laboratory within the [facility]. The Molecular Diagnostic Labor atory is authorized under the Clinical Laboratory Improvement Amendment of 1988 (CLIA-88) to perform high complexity testing. CHEMISTRY Osmolality 309 280 - 300 10/23 [facility] mOsm/kg [facility] CHEMISTRY POC A Hct 37.0 % 36.0 - 10/23 Normal [facility] 48.[address] [facility] CHEMISTRY POC A Na 129 meq/L 135 - 145 10/[address] [facility] CHEMISTRY POC A LA 1.0 mMol/L 0.5 - 2.2 10/[address] [facility] CHEMISTRY POC A K 4.5 meq/L 3.5 - 5.1 10/[address] [facility] CHEMISTRY POC A Glu null 70 - 99 10/23 [facility] CHEMISTRY POC A Ca Ion 1.18 1.16 - 10/23 Normal [facility] mMol/L 1.30 [facility] CHEMISTRY POC A PCO2 30 mm[Hg] 35 - 45 10/23 [facility] CHEMISTRY POC A PO2 123 mm[Hg] 80 - 100 10/[address] [facility] CHEMISTRY POC A Temp 37.0 Abby 10/[address] [facility] CHEMISTRY POC A HCO3 14 mMol/L 22 - 26 10/23 [facility] CHEMISTRY POC A Source ART 10/[address] [facility] CHEMISTRY POC A pH 7.27 7.35 - 10/23 [facility] [address] [facility] CHEMISTRY POC A BE -12 mMol/L -2-2 - 2 10/23 [facility] CHEMISTRY POC A O2 Sat 98.0 % 95.0 - 10/23 Normal [facility] [place] 100.0 /2012 [facility] CHEMISTRY Bili Direct 0.4 mg/dL 0.0 - 0.3 10/[address] [facility] CHEMISTRY Lipase Lvl 54 unit/L 73 - 393 10/[address] [facility] CHEMISTRY Amylase Lvl 28 unit/L 25 - 115 10/[address] [facility] CHEMISTRY B/C Ratio 10 6 - 25 10/[address] [facility] BLOOD BANK Antibody Scrn Negative 10/23 Normal [facility] Medical (10/23/2012 01:00:00) Center BLOOD BANK ABO/Rh A POS 10/[address] [facility] URINALYSIS UA <=1.0 0.1 - 1.0 10/23 NA [facility] Urobilinogen mg/dL [facility]
*NA*< Center br/>(10/23 00:01:00) <sup> </sup> URINALYSIS UA Sq Epi Moderate /LPF Few 10/23 ABN Medical *ABN* Center (10/23/2012 00:01:00) URINALYSIS UA Leuk Est Negative Negative 10/23 Normal [facility] (10/23/2012 00:01:00) Center URINALYSIS UA Nitrite Negative Negative 10/23 Normal [facility] (10/23/2012 00:01:00) Center URINALYSIS UA Blood Negative Negative 10/23 Normal [facility] (10/23/2012 00:01:00) Center URINALYSIS UA Glucose >=1000 mg/dL Negative 10/23 ABN Medical *ABN* Center (10/23/2012 00:01:00) URINALYSIS UA Protein 10 mg/dL Negative 10/23 ABN [facility] *ABN* Center (10/23/2012 00:01:00) URINALYSIS UA pH 5.0 5.0 - 8.0 10/[address] [facility] URINALYSIS UA WBC 1 /HPF 0 - 5 10/[address] [facility] URINALYSIS UA Bili Negative Negative 10/23 NA Medical *NA* Center (10/23/2012 00:01:00) URINALYSIS UA Ketones >=150 mg/dL Negative 10/23 ABN Medical *ABN* Center (10/23/2012 00:01:00) URINALYSIS UA Spec Grav 1.015 <=1.030 10/[address] [facility] URINALYSIS UA Turbidity Clear Clear 10/23 Normal Medical (10/23/2012 00:01:00) Center URINALYSIS UA Color Light Yellow Yellow 10/23 NA Medical *NA* Center (10/23/2012 00:01:00) BEDSIDE Gluc POC 265 mg/dL 70 - 99 10/08 HI 1Interpretive [facility] GLUCOSE [facility] Data: Medical TESTING Center Upper Reportable Limit: 200 mg/dL. BEDSIDE Comment1 Notify 10/08 [facility] GLUCOSE RN/MD /2012 [facility] TESTING Center BEDSIDE Comment1 Notify 10/08 NA [facility] GLUCOSE RN/MD [facility] TESTING [place] BEDSIDE Gluc POC 204 mg/dL 70 - 99 10/08 HI 2Interpretive [facility] GLUCOSE [facility] Data: Medical TESTING Center Upper Reportable Limit: 200 mg/dL. CHEMISTRY Phosphorus 2.7 mg/dL 2.5 - 4.5 10/[address] [facility] CHEMISTRY Magnesium Lvl 1.6 mg/dL 1.8 - 2.4 10/[address] [facility] CHEMISTRY Ca Ion 1.17 1.16 - 10/08 Normal [facility] mMol/L 1. [facility] CHEMISTRY Ca Norm 1.18 1.16 - 10/08 Normal [facility] mMol/L 1. [facility] CHEMISTRY Ca Ion mgdL 4.68 mg/dL 4.65 - 10/08 Normal [facility] 5.20 [facility] CHEMISTRY Ca Norm mgdL 4.72 mg/dL 4.65 - 02 Normal [facility] [address].20 [facility] CHEMISTRY AGAP 17.6 meq/L 10.0 - 10/08 Normal [facility] 20.0 [facility] CHEMISTRY eGFR 109 10/08 NA 4Result Comment: The eGFR is calculated using the CKD-EPI formula. In most young, healthy individuals the eGFR will be > 90 mL/min/1.73m2. The eGFR declines with age. An eGFR of 60-89 may be normal in [facility] mL/min/1.7 some populations, particularly the elderly, for whom the CKD-EPI formula has not been extensively validated. Use of the eGFR is not recommended in the following populations: [address] Individuals with unstable creatinine concentrations, including [...] 24 meq/L 24 - 32 10/[address] [facility] CHEMISTRY Calcium Lvl 8.5 mg/dL 8.5 - 10.5 10/08 Normal [facility]2012 [facility] CHEMISTRY Potassium Lvl 3.6 meq/L 3.5 - 5.1 10/08 Normal [facility]2012 [facility] CHEMISTRY Chloride Lvl 96 meq/L 95 - 109 10/08 Normal [facility]2012 [facility] CHEMISTRY Creatinine 0.6 mg/dL 0.5 - 1.4 10/08 Normal [facility] /2012 [facility] CHEMISTRY Sodium Lvl 134 meq/L 135 - 145 10/08 LOW [facility]2012 [facility] CHEMISTRY Glucose Lvl 129 mg/dL 70 - 99 10/08 [place] 7Interpretive Data: Adult reference range values reflect the clinical guidelines of the [place] [employer]. [facility] CHEMISTRY BUN 4 mg/dL 7 - 22 10/08 LOW [facility]2012 [facility] HEMATOLOGY Monocytes # 1.1 K/CMM 0.0 - 0.8 10/08 HI [facility]2012 [facility] HEMATOLOGY Eosinophils # 0.3 K/CMM 0.0 - 0.5 10/08 Normal [facility] HEMATOLOGY Basophils # 0.1 K/CMM 0.0 - 0.2 10/08 [facility] HEMATOLOGY Microcyte 1+ None Seen 10/08 ABN Medical *ABN* Center (10/08/2012 03:57:00) HEMATOLOGY Segs 55.7 % 45.0 - 02 Normal [facility] 75.[address] [facility] HEMATOLOGY Lymphocytes 31.3 % 20.0 - 02 Normal [facility] 40.[address] [facility] HEMATOLOGY Monocytes 10.0 % 2.0 - 12.0 10/08 Normal [facility] HEMATOLOGY Eosinophils 2.5 % 0.0 - 4.0 10/08 [facility] HEMATOLOGY Segs-Bands # 6.1 K/CMM 1.5 - 8.1 10/[address] [facility] HEMATOLOGY Basophils 0.5 % 0.0 - 1.0 10/[address] [facility] HEMATOLOGY Lymphocytes # 3.4 K/CMM 1.0 - 5.5 10/[address] [facility] HEMATOLOGY RDW 16.9 % 11.5 - 10/08 HI [facility] 14.5 /2012 [facility] HEMATOLOGY Platelet 218 K/CMM 133 - 450 10/[address] [facility] HEMATOLOGY WBC 10.9 K/CMM 3.7 - 10.4 10/[address] [facility] HEMATOLOGY RBC 4.35 M/CMM 4.20 - 10/08 [facility] [address] [facility] HEMATOLOGY MPV 9.7 fL 7.4 - 10.4 10/[address] [facility] HEMATOLOGY Hgb 10.4 g/dL 12.0 - 10/08 LOW [facility] 16.[address] [facility] HEMATOLOGY Hct 32.7 % 36.0 - 10/08 [facility] 48.0 /2012 [facility] HEMATOLOGY MCHC 31.8 g/dL 32.0 - 02 [facility] 36.0 /2012 [facility] HEMATOLOGY MCV 75.2 fL 81.0 - 02 [facility] 99.0 /2012 [facility] HEMATOLOGY MCH 23.9 pg 27.0 - 10/08 [facility] 31.0 /2012 [facility] BEDSIDE Comment1 Notify 10/08 NA [facility] GLUCOSE RN/MD /2012 Medical TESTING Center BEDSIDE Gluc POC 247 mg/dL 70 - 99 10/08 [place] 3Interpretive [facility] GLUCOSE [facility] /2012 Data: Medical TESTING Center Upper Reportable Limit: 200 mg/dL. CHEMISTRY Magnesium Lvl 2.1 mg/dL 1.8 - 2.4 10/[address] [facility] CHEMISTRY Ca Norm 1.16 1.16 - 10/07 Normal [place] mMol/L 1.30 [facility] CHEMISTRY Ca Ion mgdL 4.72 mg/dL 4.65 - 10/07 Normal [facility] 5. [facility] CHEMISTRY Ca Norm mgdL 4.64 mg/dL 4.65 - 10/07 LOW [facility] 5. [facility] CHEMISTRY Ca Ion 1.18 1.16 - 02 Normal [facility] mMol/L 1.30 /2012 [facility] CHEMISTRY Phosphorus 2.6 mg/dL 2.5 - 4.5 10/[address] [facility] CHEMISTRY Calcium Lvl 8.1 mg/dL 8.5 - 10.5 10/[address] [facility] CHEMISTRY AGAP 19.4 meq/L 10.0 - 10/07 Normal [facility] 20.[address] [facility] CHEMISTRY eGFR 116 10/07 NA 5Result Comment: The eGFR is calculated using the CKD-EPI formula. In most young, healthy individuals the eGFR will be > 90 mL/min/1.73m2. The eGFR declines with age. An eGFR of 60-89 may be normal in [facility] mL/min/1.7 some populations, particularly the elderly, for whom the CKD-EPI formula has not been extensively validated. Use of the eGFR is not recommended in the following populations: [place] [address] Center Individuals with unstable creatinine concentrations, including [...] 6 mg/dL 7 - 22 10/[address] [facility] CHEMISTRY Glucose Lvl 99 mg/dL 70 - 99 10/07 Normal 8Interpretive Data: Adult reference range values reflect the clinical guidelines of the [place] [employer]. [facility] CHEMISTRY Creatinine 0.5 mg/dL 0.5 - 1.4 10/07 Normal [facility] Lvl [facility] CHEMISTRY Potassium Lvl 3.4 meq/L 3.5 - 5.1 10/[address] [facility] CHEMISTRY Sodium Lvl 135 meq/L 135 - 145 10/[address] [facility] CHEMISTRY CO2 24 meq/L 24 - [address] [facility] CHEMISTRY Chloride Lvl 95 meq/L 95 - 109 10/[address] [facility] HEMATOLOGY MCHC 31.8 g/dL 32.0 - 10/07 LOW [facility] 36.0 [facility] HEMATOLOGY MCH 24.1 pg 27.0 - 10/07 [facility] 31.0 /2012 [facility] HEMATOLOGY MCV 75.7 fL 81.0 - 02 [facility] 99.0 /2012 [facility] HEMATOLOGY Hct 31.0 % 36.0 - 02 [facility] 48.0 /2012 [facility] HEMATOLOGY Hgb 9.9 g/dL 12.0 - 02 [facility] 16.0 /2012 [facility] HEMATOLOGY MPV 9.1 fL 7.4 - 10.[address] [facility] HEMATOLOGY Platelet 222 K/CMM 133 - [address] [facility] HEMATOLOGY RDW 16.8 % 11.5 - 02 [facility] 14.5 /2012 [facility] HEMATOLOGY RBC 4.10 M/CMM 4.20 - 02 [facility] 5.40 /2012 [facility] HEMATOLOGY WBC 13.8 K/CMM 3.7 - 10.4 10/[address] [facility] HEMATOLOGY Segs-Bands # 9.6 K/CMM 1.5 - 8.1 10/[address] [facility] HEMATOLOGY Basophils 0.3 % 0.0 - 1.0 02 [facility] HEMATOLOGY Eosinophils 1.0 % 0.0 - 4.0 10/07 [facility] HEMATOLOGY Microcyte 1+ None Seen 10/07 [facility] (10/07/2012 03:25:00) HEMATOLOGY Lymphocytes # 2.9 K/CMM 1.0 - 5.5 10/07 [facility] [address] [facility] HEMATOLOGY Eosinophils # 0.1 K/CMM 0.0 - 0.5 10/07 [facility] HEMATOLOGY Monocytes # 1.2 K/CMM 0.0 - 0.[address] [facility] HEMATOLOGY Monocytes 8.8 % 2.0 - 12.0 10/07 [facility] HEMATOLOGY Lymphocytes 20.8 % 20.0 - 02 [facility] [address] [facility] HEMATOLOGY Segs 69.1 % 45.0 - 02 [facility] 75.0 /2012 [facility] URINALYSIS UA Glucose 500mg/dL 10/[address] [facility] URINALYSIS UA <=1.0 0.1 - 1.0 10/06 [facility] Urobilinogen mg/dL /2012 Medical
*NA*< Center br/>(10/06 11:42:00) <sup> </sup> URINALYSIS Micro? Performed 10/06 NA [facility] *NA* Center (10/06/2012 11:42:00) URINALYSIS UA [place] Yeast Moderate /HPF None Seen 10/06 [facility] *ABN* Center (10/06/2012 11:42:00) URINALYSIS UA RBC 3 /HPF 0 - 2 10/[address] [facility] URINALYSIS UA Bacteria Many /HPF None Seen 10/06 [facility] *ABN* Center (10/06/2012 11:42:00) URINALYSIS UA WBC 3 /HPF 0 - 5 10/[address] [facility] URINALYSIS UA Leuk Est Negative Negative 10/06 Normal [facility] (10/06/2012 11:42:00) Center URINALYSIS UA Nitrite Negative Negative 10/06 Normal [facility] (10/06/2012 11:42:00) Center URINALYSIS UA Sq Epi Many /LPF Few 10/06 [facility] *ABN* Center (10/06/2012 11:42:00) URINALYSIS UA Bili Negative Negative 10/06 [facility] *NA* Center (10/06/2012 11:42:00) URINALYSIS UA Blood Negative Negative 10/06 Normal [facility] (10/06/2012 11:42:00) Center URINALYSIS UA pH 5.5 5.0 - 8.0 10/[address] [facility] URINALYSIS UA Protein 20 mg/dL Negative 10/06 ABN [facility] *ABN* Center (10/06/2012 11:42:00) URINALYSIS UA Ketones >=150 mg/dL Negative 10/06 [facility] *ABN* Center (10/06/2012 11:42:00) URINALYSIS UA Color Yellow Yellow 10/06 NA [facility] *NA* Center (10/06/2012 11:42:00) URINALYSIS UA Turbidity Slight Clear 10/06 [facility] *[facility]N* Center (10/06/2012 11:42:00) URINALYSIS UA Spec Grav 1.011 <=1.030 10/[address] [facility] URINALYSIS UA Mucus Few /LPF None Seen 10/06 NA [facility] (10/06/2012 11:42:00) Microbiolog Culture: 10/[address] [facility] [address] [facility] CHEMISTRY Phosphorus 2.5 mg/dL 2.5 - 4.5 10/[address] [facility] CHEMISTRY Magnesium Lvl 1.5 mg/dL 1.8 - 2.4 10/[address] [facility] CHEMISTRY eGFR 76 10/06 NA 6Result Comment: The eGFR is calculated using the CKD-EPI formula. In most young, healthy individuals the eGFR will be > 90 mL/min/1.73m2. The eGFR declines with age. An eGFR of 60-89 may be normal in [facility] mL/min/1. some populations, particularly the elderly, for whom the CKD-EPI formula has not been extensively validated. Use of the eGFR is not recommended in the following populations: [address] Individuals with unstable creatinine concentrations, including [...] 3.9 meq/L 3.5 - 5.1 10/[address] [facility] CHEMISTRY Chloride Lvl 97 meq/L 95 - 109 10/[address] [facility] CHEMISTRY Calcium Lvl 8.3 mg/dL 8.5 - 10.5 10/[address] [facility] CHEMISTRY CO2 22 meq/L 24 - 32 10/[address] [facility] CHEMISTRY Glucose Lvl 234 mg/dL 70 - 99 10/06 HI 9Interpretive Data: Adult reference range values reflect the clinical guidelines of the [place] [employer]. [facility] CHEMISTRY Creatinine 0.9 mg/dL 0.5 - 1.4 10/06 [address] [facility] CHEMISTRY BUN 9 mg/dL 7 - 22 10/06 Normal [facility] CHEMISTRY Sodium Lvl 134 meq/L 135 - 145 10/[address] [facility] CHEMISTRY AGAP 18.9 meq/L 10.0 - 10/[address] [place] [address] [facility] HEMATOLOGY Segs-Bands # 13.3 K/CMM 1.5 - 8.1 10/[address] [facility] HEMATOLOGY Basophils 0.2 % 0.0 - 1.0 10/[address] [facility] HEMATOLOGY Eosinophils 0.1 % 0.0 - 4.0 10/[address] [facility] HEMATOLOGY Monocytes 6.7 % 2.0 - 12.0 10/[address] [facility] HEMATOLOGY Segs 81.7 % 45.0 - 10/06 [facility] [place] [address] [facility] HEMATOLOGY Lymphocytes 11.3 % 20.0 - 10/06 [facility] [place] [address] [facility] HEMATOLOGY Microcyte 1+ None Seen 10/06 [facility] *ABN* Center (10/06/2012 04:25:00) HEMATOLOGY Monocytes # 1.1 K/CMM 0.0 - 0.8 10/[address] [facility] HEMATOLOGY Lymphocytes # 1.8 K/CMM 1.0 - 5.5 10/[address] [facility] HEMATOLOGY RBC 4.28 M/CMM 4.20 - 10/06 Normal [place] 5.40 /2012 [facility] HEMATOLOGY WBC 16.3 K/CMM 3.7 - 10.4 10/[address] [facility] HEMATOLOGY Hgb 10.3 g/dL 12.0 - 10/06 [facility] [place] [address] [facility] HEMATOLOGY Hct 32.6 % 36.0 - 10/06 [facility] [place] 48.0 /2012 [facility] HEMATOLOGY MCH 24.0 pg 27.0 - 10/[address] [place] [address] [facility] HEMATOLOGY MCV 76.1 fL 81.0 - 10/06 [facility] [place] [address] [facility] HEMATOLOGY MCHC 31.5 g/dL 32.0 - 10/06 [facility] [place] [address] [facility] HEMATOLOGY RDW 17.2 % 11.5 - 10/06 [facility] [place] [address] [facility] HEMATOLOGY Platelet 248 K/CMM 133 - 450 10/[address] [facility] HEMATOLOGY MPV 9.5 fL 7.4 - 10.4 10/[address] [facility] CHEMISTRY Ca Norm 1.07 1.16 - 10/05 LOW [facility] mMol/L 1. [facility] CHEMISTRY Ca Ion mgdL 4.36 mg/dL 4.65 - 10/[address] [place] [address] [facility] CHEMISTRY Ca Norm mgdL 4.28 mg/dL 4.65 - 10/05 LOW [facility] 5. [facility] CHEMISTRY Ca Ion 1.09 1.16 - 10/05 LOW [facility] mMol/L 1. [facility] HEMATOLOGY Basophils # 0.1 K/CMM 0.0 - 0.2 10/[address] [facility] HEMATOLOGY Eosinophils # 0.1 K/CMM 0.0 - 0.5 10/[address] [facility] CHEMISTRY U Preg Negative Negative 10/03 Normal [facility] (10/03/2012 06:31:00) Center BLOOD BANK ABO/Rh A POS 10/[address] [facility] BLOOD BANK Antibody Scrn Negative 10/03 Normal Medical (10/03/2012 06:00:00) Center CHEMISTRY Total Protein 7.8 g/dL 6.4 - 8.4 09/[address] [facility] CHEMISTRY AST 31 unit/L 0 - 37 09/[address] [facility] CHEMISTRY Bili Total 0.3 mg/dL 0.2 - 1.3 09/[address] [facility] CHEMISTRY ALT 50 unit/L 0 - 65 09/[address] [facility] CHEMISTRY Albumin Lvl 3.6 g/dL 3.5 - 5.0 09/[address] [facility] CHEMISTRY Alk Phos 150 unit/L 39 - 136 09/[address] [facility] CHEMISTRY B/C Ratio 21 6 - 25 09/[address] [facility] CHEMISTRY Globulin 4.2 g/dL 2.0 - 4.0 09/[address] [facility] CHEMISTRY A/G Ratio 0.9 0.7 - 1.6 09/[address] [facility] HEMATOLOGY Hypochrom Slight None Seen 09/23 Normal Medical (09/23/2012 12:35:00) Center HEMATOLOGY Elliptocyte Slight None Seen 09/23 [facility] *ABN* Center (09/23/2012 12:35:00) HEMATOLOGY Basophils # 0.1 K/CMM 0.0 - 0.2 09/[address] [facility] HEMATOLOGY Plt Morph Normal 09/23 Normal [facility] (09/23/2012 12:35:00) Center URINALYSIS UA <=1.0 0.1 - 1.0 09/23 [facility] Urobilinogen mg/dL Medical
*NA*< Center br/>(09/23 12:35:00) <sup> </sup> URINALYSIS UA Nitrite Negative Negative 09/23 Normal [facility] (09/23/2012 12:35:00) Center URINALYSIS UA Blood Negative Negative 09/23 Normal [facility] (09/23/2012 12:35:00) Center URINALYSIS UA Leuk Est Negative Negative 09/23 Normal [facility] (09/23/2012 12:35:00) Center URINALYSIS Micro? Not Indicated 09/23 NA Medical *NA* [place] (09/23/2012 12:35:00) URINALYSIS UA Ketones Negative mg/dL Negative 09/23 [facility] *NA* [place] (09/23/2012 12:35:00) URINALYSIS UA Bili Negative Negative 09/23 NA Medical *NA* [place] (09/23/2012 12:35:00) URINALYSIS UA Protein Negative mg/dL Negative 09/23 Normal [facility] (09/23/2012 12:35:00) Center URINALYSIS UA pH 5.0 5.0 - 8.0 09/[address] [facility] URINALYSIS UA Glucose Negative mg/dL Negative 09/23 [facility] Medical *NA* [place] (09/23/2012 12:35:00) URINALYSIS UA Color Light Yellow Yellow 09/23 NA [facility] *NA* [place] (09/23/2012 12:35:00) URINALYSIS UA Spec Grav 1.004 <=1.030 09/[address] [facility] URINALYSIS UA Turbidity Clear Clear 09/23 Normal [facility] (09/23/2012 12:35:00) Center BEDSIDE Gluc POC 153 mg/dL 70 - 99 06/28 HI 1Interpretive [facility] GLUCOSE Lifsc Data: Medical TESTING Center Upper Reportable Limit: 200 mg/dL. CHEMISTRY U Preg Negative Negative 06/28 Normal Medical (06/28/2012 07:27:00) [place] Vital Signs Vital Sign Value Date Comments Source Systolic (mm Hg) 124 08/13/2013 [facility] Respitory Rate 18 08/13/2013 [facility] Temperature Oral (F) 98.8 F 08/13/2013 [facility] Heart Rate 102 08/13/2013 [facility] Diastolic (mm Hg) 46 08/13/2013 [facility] Systolic (mm Hg) 107 08/13/2013 [facility] Respitory Rate 18 08/13/2013 [facility] Diastolic (mm Hg) 63 08/13/2013 [facility] Heart Rate 103 08/13/2013 [facility] Heart Rate 105 08/13/2013 [facility] Respitory Rate 18 08/13/2013 [facility] Systolic (mm Hg) 117 08/13/2013 [facility] Diastolic (mm Hg) 70 08/13/2013 [facility] Weight 81.818 08/13/2013 [facility] Height 162.56 cm 08/13/2013 [facility] Temperature Oral (F) 98.4 F 08/13/2013 [facility] Diastolic (mm Hg) 61 07/15/2013 [facility] Temperature Oral (F) 97.7 F 07/15/2013 [facility] Systolic (mm Hg) 117 07/15/2013 [facility] Respitory Rate 18 07/15/2013 [facility] Heart Rate 90 07/15/2013 [facility] Respitory Rate 18 07/14/2013 [facility] Heart Rate 104 07/14/2013 [facility] Diastolic (mm Hg) 46 07/14/2013 [facility] Systolic (mm Hg) 91 07/14/2013 [facility] Diastolic (mm Hg) 61 07/14/2013 [facility] Systolic (mm Hg) 95 07/14/2013 [facility] Respitory Rate 18 07/14/2013 [facility] Heart Rate 120 07/14/2013 [facility] Temperature Oral (F) 97.5 F 07/14/2013 [facility] Temperature Oral (F) 97.6 F 07/14/2013 [facility] Height 162.56 cm 07/12/2013 [facility] Weight 86.364 07/12/2013 [facility] Temperature Oral (F) 97.1 F 04/03/2013 [facility] Respitory Rate 18 04/03/2013 [facility] Heart Rate 79 04/03/2013 [facility] Diastolic (mm Hg) 66 04/03/2013 [facility] Systolic (mm Hg) 94 04/03/2013 [facility] Diastolic (mm Hg) 28 04/03/2013 [facility] Systolic (mm Hg) 116 04/03/2013 [facility] Respitory Rate 20 04/03/2013 [facility] Heart Rate 100 04/03/2013 [facility] Temperature Oral (F) 97.0 F 04/03/2013 [facility] Height 162.56 cm 04/03/2013 [facility] Weight 90 04/03/2013 [facility] Height 162.56 cm 04/02/2013 [facility] Weight 90 04/02/2013 [facility] Systolic (mm Hg) 132 03/09/2013 [facility] Diastolic (mm Hg) 72 03/09/2013 [facility] Heart Rate 114 03/09/2013 [facility] Temperature Oral (F) 97.7 F 03/09/2013 [facility] Respitory Rate 20 03/09/2013 [facility] Temperature Oral (F) 97.7 F 03/09/2013 [facility] Heart Rate 108 03/09/2013 [facility] Systolic (mm Hg) 143 03/09/2013 [facility] Respitory Rate 18 03/09/2013 [facility] Diastolic (mm Hg) 81 03/09/2013 [facility] Heart Rate 115 03/09/2013 [facility] Diastolic (mm Hg) 70 03/09/2013 [facility] Systolic (mm Hg) 153 03/09/2013 [facility] Respitory Rate 18 03/09/2013 [facility] Temperature Oral (F) 97.5 F 03/09/2013 [facility] Weight 90 03/07/2013 [facility] Height 162.56 cm 03/07/2013 [facility] Height 162.56 cm 03/06/2013 [facility] Weight 90 03/06/2013 [facility] Systolic (mm Hg) 127 12/07/2012 [facility] Diastolic (mm Hg) 49 12/07/2012 [facility] Heart Rate 90 12/07/2012 [facility] Temperature Oral (F) 98.3 F 12/07/2012 [facility] Respitory Rate 18 12/07/2012 [facility] Systolic (mm Hg) 104 12/07/2012 [facility] Temperature Oral (F) 98.6 F 12/07/2012 [facility] Respitory Rate 18 12/07/2012 [facility] Heart Rate 78 12/07/2012 [facility] Diastolic (mm Hg) 57 12/07/2012 [facility] Heart Rate 89 12/07/2012 [facility] Temperature Oral (F) 97.6 F 12/07/2012 [facility] Respitory Rate 18 12/07/2012 [facility] Systolic (mm Hg) 105 12/07/2012 [facility] Diastolic (mm Hg) 51 12/07/2012 [facility] Weight 100 11/29/2012 [facility] Height 162.56 cm 11/29/2012 [facility] Weight 100.568 11/29/2012 [facility] Height 162.56 cm 11/29/2012 [facility] Weight 101.364 11/28/2012 [facility] Height 162.56 cm 11/28/2012 [facility] Diastolic (mm Hg) 55 11/17/2012 [facility] Systolic (mm Hg) 117 11/17/2012 [facility] Diastolic (mm Hg) 70 11/17/2012 [facility] Systolic (mm Hg) 118 11/17/2012 [facility] Diastolic (mm Hg) 61 11/17/2012 [facility] Systolic (mm Hg) 154 11/17/2012 [facility] Temperature Oral (F) 97.8 F 11/17/2012 [facility] Temperature Oral (F) 97.9 F 11/17/2012 [facility] Temperature Oral (F) 98.6 F 11/17/2012 [facility] Height 162.56 cm 11/17/2012 [facility] Weight 103.21 11/17/2012 [facility] Respitory Rate 18 11/17/2012 [facility] Height 162.56 cm 11/16/2012 [facility] Weight 100 11/16/2012 [facility] Diastolic (mm Hg) 58 11/14/2012 [facility] Systolic (mm Hg) 121 11/14/2012 [facility] Respitory Rate 20 11/14/2012 [facility] Heart Rate 84 11/14/2012 [facility] Temperature Oral (F) 98.0 F 11/14/2012 [facility] Respitory Rate 20 11/14/2012 [facility] Systolic (mm Hg) 103 11/14/2012 [facility] Diastolic (mm Hg) 54 11/14/2012 [facility] Temperature Oral (F) 98.0 F 11/14/2012 [facility] Heart Rate 83 11/14/2012 [facility] Diastolic (mm Hg) 68 11/14/2012 [facility] Respitory Rate 20 11/14/2012 [facility] Heart Rate 79 11/14/2012 [facility] Systolic (mm Hg) 136 11/14/2012 [facility] Temperature Oral (F) 98.4 F 11/14/2012 [facility] Height 162.56 cm 11/06/2012 [facility] Weight 100 11/06/2012 [facility] Height 162.56 cm 11/06/2012 [facility] Weight 100 11/06/2012 [facility] Height 162.56 cm 11/06/2012 [facility] Weight 104.545 11/06/2012 [facility] Systolic (mm Hg) 131 11/01/2012 [facility] Diastolic (mm Hg) 62 11/01/2012 [facility] Systolic (mm Hg) 125 11/01/2012 [facility] Diastolic (mm Hg) 62 11/01/2012 [facility] Systolic (mm Hg) 155 10/31/2012 [facility] Diastolic (mm Hg) 54 10/31/2012 [facility] Temperature Oral (F) 99.7 F 10/31/2012 [facility] Temperature Oral (F) 96.7 F 10/31/2012 [facility] Temperature Oral (F) 98.1 F 10/31/2012 [facility] Respitory Rate 19 10/31/2012 [facility] Respitory Rate 19 10/31/2012 [facility] Respitory Rate 19 10/31/2012 [facility] Weight 78.2 10/24/2012 [facility] Heart Rate 126 10/23/2012 [facility] Heart Rate 130 10/23/2012 [facility] Weight 113.636 10/23/2012 [facility] Height 162.56 cm 10/23/2012 [facility] Heart Rate 119 10/23/2012 [facility] Height 162.56 cm 10/23/2012 [facility] Systolic (mm Hg) 123 10/08/2012 [facility] Respitory Rate 19 10/08/2012 [facility] Diastolic (mm Hg) 51 10/08/2012 [facility] Heart Rate 81 10/08/2012 [facility] Temperature Oral (F) 98.8 F 10/08/2012 [facility] Diastolic (mm Hg) 55 10/08/2012 [facility] Respitory Rate 20 10/08/2012 [facility] Systolic (mm Hg) 136 10/08/2012 [facility] Heart Rate 82 10/08/2012 [facility] Temperature Oral (F) 98.9 F 10/08/2012 [facility] Diastolic (mm Hg) 47 10/08/2012 [facility] Systolic (mm Hg) 107 10/08/2012 [facility] Temperature Oral (F) 98.1 F 10/08/2012 [facility] Respitory Rate 18 10/08/2012 [facility] Heart Rate 75 10/08/2012 [facility] Weight 118.200 10/03/2012 [facility] Height 162.56 cm 10/03/2012 [facility] Weight 118.182 09/23/2012 [facility] Height 162.56 cm 09/23/2012 [facility] Diastolic (mm Hg) 57 06/28/2012 [facility] Heart Rate 104 06/28/2012 [facility] Respitory Rate 18 06/28/2012 [facility] Systolic (mm Hg) 147 06/28/2012 [facility] Systolic (mm Hg) 153 06/28/2012 [facility] Diastolic (mm Hg) 61 06/28/2012 [facility] Respitory Rate 16 06/28/2012 [facility] Systolic (mm Hg) 136 06/28/2012 [facility] Diastolic (mm Hg) 52 06/28/2012 [facility] Respitory Rate 18 06/28/2012 [facility] Temperature Oral (F) 98.5 F 06/28/2012 [facility] Heart Rate 104 06/28/2012 [facility] Weight 118.182 06/14/2012 [facility] Height 162.56 cm 06/14/2012 [facility] Encounters Location Location Encounter Encounter Reason Attending ADM DC Status Source Details Type Number For Visit Provider Date Date [facility] DS [id number] DSU/ WOLFGANG 06/28 Active [facility] Medical REFLUX SUSHILA /2011 [facility] Inpatient [id number] WOLFGANG 10/03 10/08 Active [facility] SUSHILA /2012 [facility] Inpatient [id number] N/V DARELL 10/23 11/01 Active [facility] DEHYDRATI SDRINGOLA- /2012 [facility] ON MARANGA [facility] Inpatient [id number] LAVONE 11/05 11/14 Active [facility] ROSE /2012 [facility] OU [id number] CHIP 11/16 11/17 Active [facility] MARKUS /2012 [facility] Inpatient [id number] JUAN J 11/29 12/07 Active [facility] Medical BRANDO /2012 [facility] OU [id number] SANJUANA 03/07 03/09 Active [facility] OSUAGWU /2012 [facility] OU [id number] JEANNIE 04/02 04/03 Active [facility] ADOLFO /2012 [facility] OU [id number] GASTROPAR JEANNIE 07/12 07/14 Active [facility] ESIS ADOLFO /2012 [facility] JACKIE [id number] WOLFGANG 07/26 07/27 Active [facility] SUSHILA /2012 [facility] Emergency [id number] KATELYN 08/13 08/13 Active [facility] BUBLEWICZ /2012 [facility] Outpatient [id number] SER[facility] Procedures Procedure Code Date Perfomer Comments Source section [id number] [facility] Cholecystectomy [id number] [facility] <sup>1</sup> [facility] Hand repair [id number], x'2 [facility] <sup>2</sup> [facility] Tonsillectomy [id number] [facility] <sup>3</sup> [facility] Bypass of stomach [id number] [facility] Rotator cuff repair [id number] [facility] Heart procedure [id number] 1cardiac [facility] <sup>1</sup> stent for [facility]
--- OUTSIDE RECORDS SUMMARY | 2018-06-11 04:26 | XMS REPORT | CCD ---
:1965 Author Organization [facility] Care Team Providers Name Role Phone Sukhwinder [...]
--- OUTSIDE RECORDS SUMMARY | 2018-06-11 04:27 | XMS REPORT | CCD ---
:1965 Author Organization [facility] Care Team Providers Name Role Phone Milton Arabella Ruelas Consulting Provider Ezio Sifuentes Consulting Provider Allergies, Adverse Reactions, Alerts Substance Reaction Status NKDA Active Problem List Condition Effective Dates Status Acid reflux Resolved Anemia Resolved Anxiety Resolved Arthritis Resolved Depression Resolved Diabetes mellitus type 1 Resolved Edema of lower extremity Resolved Fibromyalgia Resolved Hyperlipidemia Resolved Hypertension Resolved MRSA1, 2 10/23/2012 Active 1nares 10/23/201293313Souyjua added by Discern Expert. Medications Medication Instructions [...] Duration: 30 day, Stop date: 12/06/12 1:48:00 [place] 5/325 oral tablet 1 tab, PO, Q6H, [...] Duration: 30 day, Stop date: 12/08/12 10:44:00 [place] 5/325 oral tablet 1 tab, Route: PO, [...] INJ, Q2H, Dosing Weight 100, kg, Total rhdx=8888 mg, Start date: 11/14/12 8:00:00, Duration: 2 [...] 11/08/2012 11/08/2012 Canceled PO, Drug form: TAB, [id number], Dosing Weight 100, kg, Start date: 11/08/12 [...] [Negative] Negative 1 (11/12/2012 21:54:26) 1Interpretive Data: [employer] Clostridium difficile assay utilizes loop-mediated isothermalDNA amplification [...] values reflect the clinical guidelines of the [place] [employer].10Interpretive Data: Adult reference range values reflect the clinical guidelines of the [place] [employer].11Result Comment: rechecked Critical Result (s) called leslie Conner Rose at 11/12/2012 02:56:37 SALES CLERK by_mgm. Read back OK.12Interpretive Data: Adult reference range values reflect the clinical guidelines of the [place] [employer].13Result Comment: Critical Result(s) called to [...] 10.0 240 Poor Control, take action to aluou73Kkntor Comment : Critical Result(s) called leslie Rose [...] Catch FREE TEXT SOURCE: FINAL REPORTS Final Pzhaex93,000 - 100,000 CFU/mL Enterococcus SpeciesPRELIMINARY REPORTS Preliminary Acdnjm47,000 - 100,000 CFU/ mL Enterococcus Species Identification And Sensitivity PendingSUSCEPTIBILITY REPORT ENTERO Antibiotic INTERP. VDIL Ampicillin S Levofloxacin S Nitrofurantoin S Tetracycline R Vancomycin S
--- OUTSIDE RECORDS SUMMARY | 2018-06-11 04:27 | XMS REPORT | CCD ---
:1965 Author Organization [facility] Care Team Providers Name Role Phone Sukhwinder Renteria Referring Provider Allergies, Adverse Reactions, Alerts Substance Reaction Status NKDA Active Problem List Condition Effective Dates Status Acid reflux Resolved Anemia Resolved Anxiety Resolved Arthritis Resolved Depression Resolved Diabetes mellitus type 1 Resolved Edema of lower extremity Resolved Fibromyalgia Resolved Hyperlipidemia Resolved Hypertension Resolved Medications Medication Instructions Start Date End Date Status [place] 325 mg-10 mg / 15 mL, Route: [...] Duration: 30 day, Stop date: 11/02/12 10:59:00 [place] 325 mg-10 mg / 30 mL, Route: PO, 10/04/2012 10/05/2012 Discontinued 15 mL oral solution Drug Form: SOLN, Dosing Weight 118.2, kg, Q4H, PRN Pain Score 6-10, Start date: 10/04/12 17:20:00, Duration: 30 day, Stop date: 11/03/12 17:19:00 [place] 325 mg-10 mg / 15 mL, Route: [...] 14:28:00, PRN Blood Glucose Results Blistex Lip [place] Route: TOP, Dosing 10/06/2012 10/06/2012 Deleted Weight [...] /LPF] Few /LPF *NA* (10/06/2012 11:42:00) UA [place] Yeast [None Seen /HPF] Moderate /HPF *ABN* [...] values reflect the clinical guidelines of the [place] [employer].8Interpretive Data: Adult reference range values reflect the clinical guidelines of the [place] [employer].9Interpretive Data: Adult reference range values reflect the clinical guidelines of the [place] [employer].HEMATOLOGY Most recent to oldest 1 [...] Catch FREE TEXT SOURCE: FINAL REPORTS Final Qwpier63,000 - 50,000 CFU/mL Enterococcus SpeciesPRELIMINARY REPORTS Preliminary Vdcvbv31,000 - 50,000 CFU/ mL Enterococcus Species ; Sensitivity PendingSUSCEPTIBILITY REPORT ENTERO Antibiotic INTERP. VDIL Ampicillin S Levofloxacin S Nitrofurantoin S Tetracycline R Vancomycin S Procedures Procedures Date Related Diagnosis section Cholecystectomy 1 Hand repair 2 Tonsillectomy 3 , [id number]
--- OUTSIDE RECORDS SUMMARY | 2018-06-11 04:28 | XMS REPORT | CCD ---
:1965 Author Organization [facility] Care Team Providers Name [...] Hypertension Resolved MRSA1, 2 10/23/2012 Active 1nares 10/23/201243980Tztveda added by Discern Expert. Medications Medication Instructions [...] mg, 1 supp, 10/23/2012 11/01/2012 Discontinued Route: IA, Drug form: SUPP, Q6H, Dosing Weight 113.636, kg, PRN Fever, Start date: 10/23/12 0:37:00, Duration: 30 day, Stop date: 11/22/12 0:36:00 Visipaque 320mg/ml 126 mL, Route: IVP, Drug Form: SOLN, Dosing Weight 113.636 , kg, ONCALL, STAT, Start date: 10/23/12 16:52:00, Duration: 1 doses or times, Dose=2.2ml/kg, Max dylp=633lq -- "To be infused by Radiology Staff ONLY" 10/2310/23/2012 Completed Dose=2.2ml/kg, Max jpcq=049ka -- "To be infused by Radiology Staff [...] mg, 1 supp, 10/24/2012 10/24/2012 Deleted Route: IA, Drug form: SUPP, ONCE, Dosing Weight 78.2, [...] Duration: 1 doses or times, Dose=2.2ml/kg, Max kknw=010sw -- "To be infused by Radiology Staff ONLY" 10/2310/23/2012 Completed Dose=2.2ml/kg, Max pdyy=714sr -- "To be infused by Radiology Staff [...] by the Molecular Diagnostic Laboratory within the [facility]. The Molecular Diagnostic Laboratory is authorized [...] values reflect the clinical guidelines of the [place] [employer].11Interpretive Data: Adult reference range values reflect the clinical guidelines of the [place] [employer].12Interpretive Data: Adult reference range values reflect the clinical guidelines of the [place] [employer].13Interpretive Data: Reference range is based on recommendations in the Endocrine Society Clinical Practice Guideline (J Clin Endocrinol Metab 2011;96:5652-9277)14Result Comment: Specimen Moderately Hemolyzed.15Result Comment: Critical Result(s) called to daisy otoole at 10/25/2012 01:18:09 SPECIAL NEEDS LIBRARIAN by tac. Read back OK.16Result Comment: Critical Result(s) called to Maribel Bustos at 10/24/2012 13:23:46 SPECIAL NEEDS LIBRARIAN by lwb . Readback OK.17Result Comment: Critical Result(s) called to Lyn King at 10/24/2012 09:52:38 SPECIAL NEEDS LIBRARIAN by lwb . Read back OK.18Result Comment: Critical Result(s) called to Jelani Rasmussen at 10/25/2012 00: 47:48 SPECIAL NEEDS LIBRARIAN by RM. Read back OK.19Result Comment: Critical Result(s) called to mariana bustos at _ 10/24/2012 13:37:22 CSTby_lss. Readback OK.20Result Comment : Critical Result(s) called to romero beltre at _10/24/2012 09:50:18 SPECIAL NEEDS LIBRARIAN by_lss. Read back OK.21Interpretive Data: HbA1C% eAG(mg/dL) [...] Data: Heparin Therapeutic Range: 57 - 92 Djcuafl07Oprxzyvbypon Data: Heparin Therapeutic Range: 57 - 92 Moplrry41Klbhgmwrgvya Data: Heparin Therapeutic Range: 57 - 92 Seconds Microbiology Reports PROCEDURE:Culture: Urine STATUS: Auth (Verified) BODY SITE: COLLECTED DATE/TIME: 10/23/2012 20:33:00 SOURCE: Urine,Straight Cath FREE TEXT SOURCE: FINAL REPORTS Final Oewien58,000 - 100,000 CFU/mL Gram Negative Rods , Lactose Fermenters , 2 [place] Types 50,000 - 100,000 CFU/mL Enterococcus Species [...]
--- OUTSIDE RECORDS SUMMARY | 2018-06-11 04:28 | XMS REPORT | CCD ---
[...] Hypertension Resolved MRSA1, 2 10/23/2012 Active 1nares 10/23/201203205Aeapkxu added by Discern Expert. Medications Medication Instructions [...] 1 doses or times, Dose= 2.2ml/kg, Max cuzk=484lp -- "To be infused by Radiology Staff ONLY" 201211/16/2012 Discontinued Dose=2.2ml/kg, Max rlmo=618uu -- "To be infused by Radiology Staff ONLY" calcium gluconate + Sodium 2,000 mg, 20 mL, Route: 11/17/2012 11/17/2012 Completed Chloride 0.9% IV 80 mL IVPB, ONCE, Dosing Weight 103.21, kg, Start date: 11/17/12 11:02:00, Stop date: 11/17/12 11:02:00 enoxaparin 40 mg, 0.4 mL, Route: 11/16/2012 11/17/2012 Discontinued SUB-Q, Drug form: INJ, [id number], Dosing Weight 100, kg, Start date: 11/16/12 [...] date: 11/16/12 13:40:00, Stop date: 11/16/12 13:40:00 [place] 5/325 oral tablet 1 tab, Route: PO, [...] clinical guidelines of the [place] [employer].7Interpretive Data: Adult reference range values reflect the clinical guidelines of the [place] [employer].HEMATOLOGY Most recent to oldest [Reference [...]
--- OUTSIDE RECORDS SUMMARY | 2018-06-11 04:29 | XMS REPORT | CCD ---
:1965 Author Organization [facility] Care Team Providers Name Role Phone Marcela Michaelsbhumika [place] Consulting Provider Alberto Mata Consulting Provider Allergies, Adverse Reactions, Alerts Substance Reaction Status NKDA Active Problem List Condition Effective Dates Status Acid reflux Resolved Anemia Resolved Anxiety Resolved Arthritis Resolved Depression Resolved Diabetes mellitus type 1 Resolved Edema of lower extremity Resolved Fibromyalgia Resolved Hyperlipidemia Resolved Hypertension Resolved [place] - Myocardial infarction 10/22/2012 Resolved MRSA1, 2, 3, 4 10/23/2012 Active Neuropathy Resolved - Nares - Kcrnx4vcrkb 10/23/201277762Ltaxrwh added by Discern Expert. Medications Medication Instructions [...] IVPB, Drug 12/02/2012 12/02/2012 Discontinued form: PDR/INJ, [id number], Dosing Weight 100, kg, Start date: 12/02/12 [...] 11/29/2012 11/29/2012 Discontinued SUB-Q, Drug form: INJ, [id number], Dosing Weight 101.364, kg, Start date: 11/29/12 [...] mg, 1 supp, Route: 12/04/2012 12/07/2012 Discontinued [place], Drug form: SUPP, Q4H, Dosing Weight 100, [...] date: 12/04/12 23:39:00, Stop date: 12/04/12 23:39:00 [place] 7.5/325 oral tablet 1 tab, Route: PO, [...] IVPB, Drug 11/29/2012 12/01/2012 Discontinued form: PDR/INJ, [id number], Dosing Weight 100, kg, Start date: 11/29/12 [...] 7:47:00 Phenergan 25 mg rectal 1 supp, CO, Q6H, PRN, 9 11/29/2012 Ordered suppository supp, [...] by the [facility] within the [facility]. The Molecular Diagnostic Laboratory is authorized [...] values reflect the clinical guidelines of the [place] [employer].11Interpretive Data: Adult reference range values reflect the clinical guidelines of the [place] [employer].12Interpretive Data: Adult reference range values reflect the clinical guidelines of the [place] [employer].13Interpretive Data: No established reference ranges.14Interpretive [...] Data: Heparin Therapeutic Range: 57 - 92 Ekpzdmf75Ptwsmprhfpiw Data: Heparin Therapeutic Range: 57 - 92 [...] Catch FREE TEXT SOURCE: FINAL REPORTS Final Zslxjw09,000 - 50,000 CFU/mL Yeast <10,000 CFU/mL Skin EsPRELIMINARY REPORTS Preliminary ReportNo Growth; Holding Procedures Procedures Date Related Diagnosis Heart procedure 1 1cardiac stent for [place]
--- OUTSIDE RECORDS SUMMARY | 2018-06-11 04:30 | XMS REPORT | CCD ---
:1965 Author Organization [facility] Care Team Providers Name Role [...] 10/23/2012 Active Neuropathy Resolved - Nares - Egrey3htmhx 10/23/201223930Kqmagbq added by Discern Expert. Medications Medication Instructions [...] values reflect the clinical guidelines of the [place] [employer].7Interpretive Data: Adult reference range values reflect the clinical guidelines of the [place] [employer].HEMATOLOGY Most recent to oldest [Reference [...]
--- OUTSIDE RECORDS SUMMARY | 2018-06-11 04:30 | XMS REPORT | CCD ---
:1965 Author Organization [facility] Care Team Providers Name Role [...] 10/23/2012 Active Neuropathy Resolved - Nares - Jguso9debak 10/23/201258615Xkmezhk added by Discern Expert. Medications Medication Instructions [...]
--- OUTSIDE RECORDS SUMMARY | 2018-06-11 04:30 | XMS REPORT | CCD ---
:1965 Author Organization [facility] Care Team Providers Name Role Phone JohnbeckiReno [...] 10/23/2012 Active Neuropathy Resolved - Nares/ - Hkczf1txooi 10/23/201244824Twbhooa added by Discern Expert. Medications Medication Instructions [...] 03/08/13 3:17:00, Stop date: 03/08/13 3:17:00 lidocaine-epi 1%-1:490115 1 ml, Route: SUB-Q, Drug 03/07/2013 03/07/2013 [...] date: 03/07/13 2:35:00, Stop date: 03/07/13 2:35:00 [place] 5/325 oral tablet 1 tab, PO, Q6H, [...] Results BEDSIDE GLUCOSE TESTING Most recent to [facility] 1 2 3 [Reference Range]: [...] Reportable Limit: 200 mg/dL.URINALYSIS Most recent to [facility] [Reference Range]: 1 2 3 [...] the clinical guidelines of the [place] [employer].8Interpretive Data: Adult reference range values reflect the clinical guidelines of the [place] [employer].9Interpretive Data: Adult reference range values reflect the clinical guidelines of the [place] [employer].HEMATOLOGY Most recent to oldest 1 [...]
--- OUTSIDE RECORDS SUMMARY | 2018-06-11 04:31 | XMS REPORT | CCD ---
[...] Gastric ulcer Resolved Hyperlipidemia Resolved Hypertension Resolved [place] - Myocardial infarction 10/22/2012 Resolved MRSA1, 2, 3, 4 10/23/2012 Active Neuropathy Resolved - Nares - Gjgow3gbghm 10/23/201274604Ikvywhe added by Discern Expert. Medications Medication Instructions [...] values reflect the clinical guidelines of the [place] [employer].HEMATOLOGY Most recent to oldest [Reference [...]
--- OUTSIDE RECORDS SUMMARY | 2018-06-11 04:31 | XMS REPORT ---
:1965 Author Organization [facility] Address [address] [place] [address] [address] [place] [address] Care Team Providers Name Role Phone SHANI [...] (BEAKER) (test 211 mg/dL 70-110 TESTED AT [address] burt=[id number]) [place] [id number] POCT-GLUCOSE [id number] 13:04:00 Test Item Value Reference Range Comments POC-GLUCOSE METER (BEAKER) 282 mg/dL 70-110 TESTED AT [address] (test jwnr=5884) [place] [id number] POCT-GLUCOSE [id number] 14:35:00 Test Item Value Reference Range Comments POC-GLUCOSE METER (BEAKER) 200 mg/dL 70-110 TESTED AT [address] (test akbo=2173) [place] [address] [id number] 12:24:00 Test Item Value Reference Range Comments SODIUM (BEAKER) (test ucqx=580) 136 meq/L 136-145 POTASSIUM (BEAKER) (test atcm=055) 5.4 meq/L 3.5-5.1 CHLORIDE (BEAKER) (test fnpm=035) 102 meq/L 98-107 CO2 (BEAKER) (test svgt=092) 25 meq/L 22-29 [id number] 12:24:00 Test Item Value Reference Range Comments GLUCOSE RANDOM (BEAKER) (test mmic=030) 353 mg/dL 70-105 BUN AND [id number] 12:24:00 Test Item Value Reference Range Comments BLOOD UREA NITROGEN 14 mg/dL 7-21 ([facility]) (test decr=712) CREATININE ([facility]) (test 1.08 mg/dL 0.57-1.25 xgsh=384) EGFR ([facility]) (test 53 mL/min/1.73 sq m ESTIMATED GFR IS NOT oltz=7830) ACCURATE CREATININE CLEARANCE IN PREDICTING GLOMERULAR FILTRATION RATE. ESTIMATED GFR IS NOT APPLICABLE FOR DIALYSIS PATIENTS. POCT-HEMOGLOBIN [id number] 11:43:00 Test Item Value Reference Range Comments POC-HEMOGLOBIN METER 12.1 g/dL 12.0-15.[address] ([facility]) (test lldn=1697) [place] [address] POCT-GLUCOSE [id number] 11:43:00 Test Item Value Reference Range Comments POC-GLUCOSE METER ([facility]) 320 mg/dL 70-110 Verify with Lab draw/TESTED AT (test aazm=1736) [place] [address] [address] [place] [address]
--- OUTSIDE RECORDS SUMMARY | 2018-06-11 04:31 | XMS REPORT | CCD ---
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 Medications Medication Instructions Start Date End Date Status acetaminophen-hydrocod 1 tab, Route: PO, Drug Form: 07/12/2013 07/14/2013 Discontinued one 325 mg-5 mg oral TAB, Dosing Weight 86.364, tablet kg, Q4H, PRN Pain, Start date: 07/12/13 18:23:00, Duration: 30 day, Stop date: 08/11/13 18:22:00(Same as: [place] 325/5) Do not exceed 4gm/day of acetaminophen. [...] 1 doses or times, Dose =2.2ml/kg, Max oyly=736pr -- "To be infused by Radiology Staff ONLY" 201207/12/2013 Completed Dose=2.2ml/kg, Max ozct=572oo -- "To be infused by Radiology Staff [...] day, Stop date: 08/11/13 9:00:00(Same as: Lopressor) [place] 5/325 oral 1 tab, Route: PO, Dosing [...] date: 08/11/13 9:00:00(Same as: Mag-Ox 400)Magnesium oxide 903ry=200kl elemental magnesiumDose=____mg magnesium oxide (___mg elemental magnesium) [...] [Negative] Negative 1 (07/13/2013 00:00:59) 1Interpretive Data: [employer] Clostridium difficile assay utilizes loop-mediated isothermalDNA amplification (LAMP) technology to detect a 204 bp region of the tcdA gene within the PaLoc genesegment present in all known toxigenic C. difficile strains. The assay utilizes FDA cleared IVD reagents. Performance characteristics have been verified by the Molecular Diagnostic Laboratory within the [facility]. The Molecular Diagnostic Laboratory is authorized [...] /LPF] Many /LPF *ABN* (07/12/2013 03:00:00) UA [place] Yeast [None Seen /HPF] Moderate /HPF *ABN* [...] values reflect the clinical guidelines of the [place] Diabetes [employer].9Interpretive Data: Adult reference range values reflect the clinical guidelines of the [place] [employer].10Interpretive Data: Adult reference range values reflect the clinical guidelines of the [place] [employer].HEMATOLOGY Most recent to oldest [Reference [...] to oldest [Reference Range]: 1 2 3 [place]-HIV 1/2 Ab [Negative] Negative *NA* (07/14/2013 00:27:00) [place]-Hep C Ab [Negative] Negative *NA* (07/14/2013 00:27:00) CDC-HIV 1/2 Ab [Negative] Negative *NA* (07/12/2013 16:02:06)
[2018-06-11 05:27] LABS: Absolute Lymphocytes (CBC) 2.1 K/uL (0.7-4.9); Absolute Monocytes 0.4 K/uL (0.1-1.3); Absolute Neutrophil 7.4 K/uL (1.8-8.0); Basophils % 0.5 % (0-1.3); Eosinophils % 0.4 % (0-4.4); Hematocrit 33.1 % (36.0-45.0); Lymphocytes % 20.9 % (15.3-44.8); MCH 27.6 pg (27.0-35.0); MCV 81.9 fL (80-100); MPV 9.8 fL (7.6-11.3); Monocytes % 3.5 % (3.3-12.3); RBC Red Blood Cell Count 4.05 M/uL (3.86-4.86)
[2018-06-11] MEDS ORDERED: ONDANSETRON 4 MG (ODT) TAB ONE (05:37)
[2018-06-11 05:39] LABS: ALT/SGPT 22 U/L (12-78); AST/SGOT 10 U/L (15-37); Albumin 3.3 g/dL (3.4-5.0); Alkaline Phosphatase 122 U/L (45-117); BUN Blood Urea Nitrogen 21 mg/dL (7-18); Bicarbonate 23 mmol/L (21-32); Bilirubin Direct 0.1 mg/dL (0-0.2); Bilirubin Total 0.3 mg/dL (0.2-1.0); Glucose Level 399 mg/dL (74-106); Magnesium 2.3 mg/dL (1.8-2.4); NT PRO-BNP 251 pg/mL (<125); Potassium 4.3 mmol/L (3.5-5.1); Protein, Total 6.9 g/dL (6.4-8.2); Sodium Level 134 mmol/L (136-145); Troponin (Emerg Dept Use Only) < 0.02 ng/mL (0.0-0.045)
[2018-06-11 05:40] LABS: Protime INR 0.86
--- NOTE | 2018-06-11 06:48 | EDPHYS ---
Physician Documentation [facility] Name: Ila Pérez Age: 52 yrs Sex: Female : 1965 Arrival Date: 06/11/2018 Time: 03:25 Bed 5 Private MD: Fabián Guerra E ED Physician Yoan Landon HPI: 06/11 03:51 This 52 yrs old Female presents to ER via Wheelchair with complaints of pkl Breathing Difficulty, Headache. 03:51 The patient has shortness of breath at rest. Onset: The symptoms/episode began/occurred pkl 1 week(s) ago. Associated signs and symptoms: Pertinent positives: productive cough. The patient has been recently seen at the [facility] Emergency Department, this week, for similar complaints. Historical: - Allergies: 03:45 Gluten Protein; ea - Home Meds: 03:45 Albuterol Inhl [Active]; aspirin 81 mg Oral chew 1 tab once daily [Active]; benzonatate ea 100 mg Oral cap 1 cap twice a day [Active]; bupropion HCl 150 mg Oral TbER once daily [Active]; Carafate 100 mg/mL Oral susp 10 mL three times a day [Active]; cholestopl 1 mg twice a day [Active]; Cinnamon 500 mg Oral cap 2 cap daily [Active]; cyclobenzaprine 10 mg Oral tab twice a day [Active]; Claritin 10 mg Oral tab 1 tab once daily [Active]; D3 2000 IU 2 per day [Active]; diphenoxylate-atropine 2.5-0.025 mg Oral tab 1-2 tablets every 6 hours [Active]; duloxetine 60 mg Oral cpDR 2 caps once daily [Active]; ferrous sulfate 325 mg (65 mg iron) Oral TbEC twice a day [Active]; Vasculera 630 mg Oral tab daily [Active]; trazodone 50 mg Oral tab nightly [Active]; tramadol 50 mg Oral tab 1 tab three times a day [Active]; Rozerem 8 mg Oral tab 1 tab bedtime [Active]; pantoprazole 40 mg Oral TbEC 1 tab 2 times per day [Active]; ondansetron HCl 8 mg Oral tab [Active]; nitroglycerin 0.4 mg SL subl 1 tab every 5 minutes [Active]; Myrbetriq 25 mg Oral Tb24 1 tab once daily [Active]; multivitamin Oral cap [Active]; metoprolol succinate 25 mg Oral Tb24 1 tab once daily [Active]; Lyrica Oral 150 mg 2 times per day [Active]; lorazepam 1 mg Oral tab 1 tab 3 times per day [Active]; furosemide 20 mg Oral tab one to two tabs every morning [Active]; [place] 120 mg daily [Active]; Glucagon Emergency Kit (human) 1 mg IM kit 1 mL [Active]; lorazepam 1 mg Oral tab twice a day [Active]; Glucosamine Oral [Active]; Humalog 100 unit/mL Sub-Q soln [Active]; hydroxyzine HCl 25 mg Oral tab 1 tab twice a day [Active]; lisinopril 5 mg Oral tab 1 tab once daily [Active]; Lantus 18 U Sub-Q soln daily [Active]; k2 100 mcg bid [Active]; - PMHx: 03:45 Tachycardia; sleep disorder; raynaud's; neuropathy; GERD; Myocardial infarction; ea Hypertension; Fibromyalgia; Diabetes - IDDM; Anxiety; Chronic pain; Arthritis; Depression; gastroporeisis; heart disease; Esophagitis; High Cholesterol; - PSHx: 03:45 ; Gastric Bypass; cataract sx; Carpal Tunnel Repair; Cholecystectomy; ea Tonsillectomy; Knee surgery; rotator cuff; trigger finger release; - Immunization history:: Adult Immunizations up to date. - Social history:: Smoking status: Patient/guardian denies using tobacco. - Ebola Screening: : No symptoms or risks identified at this time. ROS: 03:51 Eyes: Negative for injury, pain, redness, and discharge, ENT: Negative for injury, pkl pain, and discharge, Neck: Negative for injury, pain, and swelling, Cardiovascular: Negative for chest pain, palpitations, and edema. 03:51 Respiratory: Positive for cough, with yellow sputum, shortness of breath. 03:51 Abdomen/GI: Positive for diarrhea, Negative for abdominal pain. 03:51 Back: Negative for acute changes. 03:51 : Negative for urinary symptoms. 03:51 MS/extremity: Negative for acute changes. 03:51 Skin: Negative for rash. 03:51 Neuro: Positive for headache. Exam: 03:51 Head/Face: Normocephalic, atraumatic. Eyes: Pupils equal round and reactive to light, pkl extra-ocular motions intact. Lids and lashes normal. Conjunctiva and sclera are non-icteric and not injected. Cornea within normal limits. Periorbital areas with no swelling, redness, or edema. ENT: Nares patent. No nasal discharge, no septal abnormalities noted. Tympanic membranes are normal and external auditory canals are clear. Oropharynx with no redness, swelling, or masses, exudates, or evidence of obstruction, uvula midline. Mucous membranes moist. Neck: Trachea midline, no thyromegaly or masses palpated, and no cervical lymphadenopathy. Supple, full range of motion without nuchal rigidity, or vertebral point tenderness. No Meningismus. Chest/axilla: Normal chest wall appearance and motion. Nontender with no deformity. No lesions are appreciated. Cardiovascular: Regular rate and rhythm with a normal S1 and S2. No gallops, murmurs, or rubs. Normal PMI, no JVD. No pulse deficits. 03:51 Respiratory: the patient does not display signs of respiratory distress, Respirations: normal, Breath sounds: bronchial sounds, that are mild, are scattered. 03:51 Abdomen/GI: Exam negative for acute changes. 03:51 Back: Exam negative for acute changes. 03:51 : Exam negative for acute changes. 03:51 Musculoskeletal/extremity: Exam is negative for acute changes. 03:51 Skin: Exam negative for rash. 03:51 Neuro: Orientation: is normal, Mentation: is normal, Cranial nerves: grossly normal, Motor: is normal. Vital Signs: 03:46 BP 100 / 60; Pulse 87; Resp 18; Temp 97.8; Pulse Ox 98% on R/A; Weight 93.44 kg; Height ea 5 ft. 4 in. (162.56 cm); Pain 6/10; 04:54 BP 115 / 54; Pulse 78; Resp 19 S; Pulse Ox 98% on R/A; jd3 05:58 BP 113 / 53; Pulse 101; Resp 19 S; Pulse Ox 97% on R/A; jd3 06:23 BP 123 / 55; Pulse 104; Resp 17 S; Pulse Ox 96% on R/A; jd3 08:24 BP 156 / 62; Pulse 98; Resp 16; Pulse Ox 98% on R/A; la1 03:46 Body Mass Index 35.36 (93.44 kg, 162.56 cm) ea MDM: 03:26 Patient medically screened. pkl 06:46 Data reviewed: vital signs, nurses notes, lab test result(s), EKG, radiologic studies, pkl plain films. 06/11 03:50 Order name: Basic Metabolic Panel; Complete Time: 05:57 pkl 06/11 03:50 Order name: CBC with Diff; Complete Time: 05:57 pkl 06/11 03:50 Order name: LFT's; Complete Time: 05:57 pkl 06/11 03:50 Order name: Magnesium; Complete Time: 05:57 pkl 06/11 03:50 Order name: NT PRO-BNP; Complete Time: 05:57 pkl 06/11 03:50 Order name: PT-INR; Complete Time: 05:57 pkl 06/11 03:50 Order name: Troponin (emerg Dept Use Only); Complete Time: 05:57 pkl 06/11 03:50 Order name: ABG; Complete Time: 04:34 pkl 06/11 03:50 Order name: Lactate; Complete Time: 05:57 pkl 06/11 03:50 Order name: Procalcitonin; Complete Time: 06:32 pkl 06/11 03:50 Order name: D-Dimer; Complete Time: 05:57 pkl 06/11 03:50 Order name: Blood Culture Adult (2) pkl 06/11 09:27 Order name: Influenza Screen (A ; Complete Time: 19:03 EDMS 06/11 03:50 Order name: XRAY Chest (1 view); Complete Time: 19:03 pkl 06/11 03:50 Order name: EKG; Complete Time: 03:51 pkl 06/11 03:50 Order name: Cardiac monitoring; Complete Time: 04:53 pkl 06/11 03:50 Order name: EKG - Nurse/Tech; Complete Time: 05:05 pkl 06/11 03:50 Order name: IV Saline Lock; Complete Time: 06:58 pkl 06/11 03:50 Order name: Labs collected and sent; Complete Time: 05:05 pkl 06/11 03:50 Order name: O2 Per Protocol; Complete Time: 04:54 pkl 06/11 06:45 Order name: CT Chest For PE Angio pkl 06/11 09:15 Order name: CT; Complete Time: 19:03 EDMS 06/11 09:27 Order name: Group A Streptococcus Rapid Sc; Complete Time: 19:03 EDMS 06/11 03:50 Order name: O2 Sat Monitoring; Complete Time: 04:54 pkl Administered Medications: 04:10 Drug: Albuterol - atroVENT (3:1) (2.5 mg - 0.5 mg) 3 ml Route: Nebulizer; ea 05:33 Follow up: Response: No adverse reaction; Marked relief of symptoms ea 05:28 CANCELLED (Physician Discretion): Zofran 4 mg IVP once; over 2 minutes bb 05:33 Drug: Zofran 4 mg Route: PO; ea 06:58 Follow up: Response: No adverse reaction jd3 05:55 Drug: NS 0.9% 1000 ml Route: IV; Rate: 100 ml/hr; Site: left hand; ea 09:37 Follow up: IV Status: Infusion continued upon admission la1 09:10 Drug: Insulin Regular Human 10 units {Co-Signature: ph (Neelima Silveira RN).} Route: la1 Sub-Q; Site: left upper arm; 09:13 Follow up: Response: medication administered on admission la1 09:10 Drug: LanTUS 25 units Route: Sub-Q; Site: left upper arm; la1 09:13 Follow up: Response: Other; medication administered on pt admission la1 Point of Care Testing: Blood Glucose: 08:35 Blood Glucose: 453 mg/dL; ph Ranges: Critical Glucose Levels:Adult <50 mg/dl or >400 mg/dl <40 mg/dl or >180 mg/dl Disposition: 06/11/18 06:47 Hospitalization ordered by David Wylie for Observation. Preliminary diagnosis is Acute dyspnea. Hypoxia. - Bed requested for Telemetry/MedSurg (observation). - Status is Observation. la1 - Condition is Stable. - Problem is new. - Symptoms are unchanged. UTI on Admission? No Signatures: Dispatcher [employer] EDMS Yoan Landon MD MD pkl Ballard, Brenda, RN RN bb Attema, Lee, RN RN la1 Delmis Rosales RN RN ea Botello, Elizabeth eb Davies, Jonathon RN jd3 Neelima Silveira RN ph Corrections: (The following items were deleted from the chart) 03:51 03:51 HEMOGLOBIN A1C+CHEM A1C.LAB.BRZ ordered. EDMS EDMS 05:28 03:57 Zofran 4 mg IVP once; over 2 minutes ordered. pkl bb 05:28 05:28 Zofran 4 mg IVP once; over 2 minutes ordered. bb bb 07:01 06:47 Hospitalization Ordered by David Wylie DO for Observation. Preliminary eb diagnosis is Acute dyspnea. Hypoxia. Bed requested for Telemetry/MedSurg (observation). Status is Observation. Condition is Stable. Problem is new. Symptoms are unchanged. UTI on Admission? No. pkl 09:37 07:01 06/11/2018 06:47 Hospitalization Ordered by David Wylie DO for Observation. la1 Preliminary diagnosis is Acute dyspnea. Hypoxia. Bed requested for Telemetry/MedSurg (observation). Status is Observation. Condition is Stable. Problem is new. Symptoms are unchanged. UTI on Admission? No. eb
--- NOTE | 2018-06-11 06:48 | ER ---
Nurse's Notes [facility] Name: Ila Pérez Age: 52 yrs Sex: Female : 1965 Arrival Date: 06/11/2018 Time: 03:25 Bed 5 Private MD: Fabián Guerra E Diagnosis: Acute dyspnea. Hypoxia Presentation: 06/11 03:34 Presenting complaint: Patient states: Pt reports she came to the ED on Wednesday and was ea diagnosed with bronchitis and was prescribed prednisone, cough syrup and and inhaler. Pt reports symptoms have not improved. Pt complaining of nausea, congestion and headache. Transition of care: patient was not received from another setting of care. Onset of symptoms was June 11, 2018. Risk Assessment: Do you want to hurt yourself or someone else? Patient reports no desire to harm self or others. Initial Sepsis Screen: Does the patient meet any 2 criteria? No. Patient's initial sepsis screen is negative. Does the patient have a suspected source of infection? No. Patient's initial sepsis screen is negative. Care prior to arrival: None. 03:34 Method Of Arrival: Wheelchair ea 03:34 Acuity: DEVONTE 3 ea Historical: - Allergies: 03:45 Gluten Protein; ea - Home Meds: 03:45 Albuterol Inhl [Active]; aspirin 81 mg Oral chew 1 tab once daily [Active]; benzonatate ea 100 mg Oral cap 1 cap twice a day [Active]; bupropion HCl 150 mg Oral TbER once daily [Active]; Carafate 100 mg/mL Oral susp 10 mL three times a day [Active]; cholestopl 1 mg twice a day [Active]; Cinnamon 500 mg Oral cap 2 cap daily [Active]; cyclobenzaprine 10 mg Oral tab twice a day [Active]; Claritin 10 mg Oral tab 1 tab once daily [Active]; D3 2000 IU 2 per day [Active]; diphenoxylate-atropine 2.5-0.025 mg Oral tab 1-2 tablets every 6 hours [Active]; duloxetine 60 mg Oral cpDR 2 caps once daily [Active]; ferrous sulfate 325 mg (65 mg iron) Oral TbEC twice a day [Active]; Vasculera 630 mg Oral tab daily [Active]; trazodone 50 mg Oral tab nightly [Active]; tramadol 50 mg Oral tab 1 tab three times a day [Active]; Rozerem 8 mg Oral tab 1 tab bedtime [Active]; pantoprazole 40 mg Oral TbEC 1 tab 2 times per day [Active]; ondansetron HCl 8 mg Oral tab [Active]; nitroglycerin 0.4 mg SL subl 1 tab every 5 minutes [Active]; Myrbetriq 25 mg Oral Tb24 1 tab once daily [Active]; multivitamin Oral cap [Active]; metoprolol succinate 25 mg Oral Tb24 1 tab once daily [Active]; Lyrica Oral 150 mg 2 times per day [Active]; lorazepam 1 mg Oral tab 1 tab 3 times per day [Active]; furosemide 20 mg Oral tab one to two tabs every morning [Active]; [place] 120 mg daily [Active]; Glucagon Emergency Kit (human) 1 mg IM kit 1 mL [Active]; lorazepam 1 mg Oral tab twice a day [Active]; Glucosamine Oral [Active]; Humalog 100 unit/mL Sub-Q soln [Active]; hydroxyzine HCl 25 mg Oral tab 1 tab twice a day [Active]; lisinopril 5 mg Oral tab 1 tab once daily [Active]; Lantus 18 U Sub-Q soln daily [Active]; k2 100 mcg bid [Active]; - PMHx: 03:45 Tachycardia; sleep disorder; raynaud's; neuropathy; GERD; Myocardial infarction; ea Hypertension; Fibromyalgia; Diabetes - IDDM; Anxiety; Chronic pain; Arthritis; Depression; gastroporeisis; heart disease; Esophagitis; High Cholesterol; - PSHx: 03:45 ; Gastric Bypass; cataract sx; Carpal Tunnel Repair; Cholecystectomy; ea Tonsillectomy; Knee surgery; rotator cuff; trigger finger release; - Immunization history:: Adult Immunizations up to date. - Social history:: Smoking status: Patient/guardian denies using tobacco. - Ebola Screening: : No symptoms or risks identified at this time. Screenin:35 Abuse screen: Denies threats or abuse. Nutritional screening: No deficits noted. jd3 Tuberculosis screening: No symptoms or risk factors identified. Fall Risk Ambulatory Aid- Crutches/Cane/Walker (15 pts). Gait- Weak (10 pts.). Mental Status- Oriented to own ability (0 pts). Total Esteban Fall Scale indicates No Risk (0-24 pts). Assessment: 03:32 General: Appears in no apparent distress. uncomfortable, Behavior is calm, cooperative, jd3 appropriate for age. Pain: Complains of pain in head Quality of pain is described as aching. Neuro: Level of Consciousness is awake, alert, obeys commands, Oriented to person, place, time, situation, Appropriate for age. Cardiovascular: Capillary refill < 3 seconds Patient's skin is warm and dry. Respiratory: Reports shortness of breath cough that is Airway is patent Respiratory effort is even, unlabored, Respiratory pattern is regular, symmetrical, Breath sounds with wheezes bilaterally. GI: No signs and/or symptoms were reported involving the gastrointestinal system. : No signs and/or symptoms were reported regarding the genitourinary system. EENT: No signs and/or symptoms were reported regarding the EENT system. Derm: No signs and/or symptoms reported regarding the dermatologic system. Musculoskeletal: Circulation, motion, and sensation intact. Range of motion: intact in all extremities. 04:54 Reassessment: Patient appears in no apparent distress at this time. Patient and/or jd3 family updated on plan of care and expected duration. Pain level reassessed. Patient is alert, oriented x 3, equal unlabored respirations, skin warm/dry/pink. 05:58 Reassessment: Patient appears in no apparent distress at this time. Patient and/or jd3 family updated on plan of care and expected duration. Pain level reassessed. Patient is alert, oriented x 3, equal unlabored respirations, skin warm/dry/pink. 06:23 Reassessment: Patient appears in no apparent distress at this time. No changes from jd3 previously documented assessment. Patient and/or family updated on plan of care and expected duration. Pain level reassessed. Patient is alert, oriented x 3, equal unlabored respirations, skin warm/dry/pink. Vital Signs: 03:46 BP 100 / 60; Pulse 87; Resp 18; Temp 97.8; Pulse Ox 98% on R/A; Weight 93.44 kg; Height ea 5 ft. 4 in. (162.56 cm); Pain 6/10; 04:54 BP 115 / 54; Pulse 78; Resp 19 S; Pulse Ox 98% on R/A; jd3 05:58 BP 113 / 53; Pulse 101; Resp 19 S; Pulse Ox 97% on R/A; jd3 06:23 BP 123 / 55; Pulse 104; Resp 17 S; Pulse Ox 96% on R/A; jd3 08:24 BP 156 / 62; Pulse 98; Resp 16; Pulse Ox 98% on R/A; la1 03:46 Body Mass Index 35.36 (93.44 kg, 162.56 cm) ea ED Course: 03:25 Patient arrived in ED. ds1 03:25 Fabián Guerra MD is Private Physician. ds1 03:26 Yoan Landon MD is Attending Physician. pkl 03:32 Jagdeep Canseco, MARTÍNEZ is Primary Nurse. jd3 03:35 Patient has correct armband on for positive identification. Bed in low position. Call jd3 light in reach. Side rails up X 1. Adult w/ patient. 03:35 Arm band placed on. jd3 03:36 Triage completed. ea 04:08 X-ray completed. Portable x-ray completed in exam room. sw 04:09 XRAY Chest (1 view) In Process Unspecified. EDMS 05:35 Inserted saline lock: 24 gauge in right hand, using aseptic technique. ea 06:46 David Wylie DO is Hospitalizing Provider. pkl 07:43 Inserted saline lock: 22 gauge in right antecubital area, using aseptic technique. la1 09:03 CT completed. Patient tolerated procedure well. Patient moved back from CT. bq 09:13 Notified the admitting physician of a critical lab result(s), Gluc 451. la1 09:36 No provider procedures requiring assistance completed. Patient admitted, IV remains in la1 place. Administered Medications: 04:10 Drug: Albuterol - atroVENT (3:1) (2.5 mg - 0.5 mg) 3 ml Route: Nebulizer; ea 05:33 Follow up: Response: No adverse reaction; Marked relief of symptoms ea 05:28 CANCELLED (Physician Discretion): Zofran 4 mg IVP once; over 2 minutes bb 05:33 Drug: Zofran 4 mg Route: PO; ea 06:58 Follow up: Response: No adverse reaction jd3 05:55 Drug: NS 0.9% 1000 ml Route: IV; Rate: 100 ml/hr; Site: left hand; ea 09:37 Follow up: IV Status: Infusion continued upon admission la1 09:10 Drug: Insulin Regular Human 10 units {Co-Signature: ph (Neelima Silveira RN).} Route: la1 Sub-Q; Site: left upper arm; 09:13 Follow up: Response: medication administered on admission la1 09:10 Drug: LanTUS 25 units Route: Sub-Q; Site: left upper arm; la1 09:13 Follow up: Response: Other; medication administered on pt admission la1 Point of Care Testing: Blood Glucose: 08:35 Blood Glucose: 453 mg/dL; ph Ranges: Outcome: 06:47 Decision to Hospitalize by Provider. pk 09:37 Admitted to Med/surg accompanied by nurse, via wheelchair, room 214, with chart, Report la1 called to Timmy 09:37 Condition: stable 09:37 Instructed on the need for admit. 09:37 Patient left the ED. mt1 Signatures: Dispatcher [employer] EDMS Yoan Landon MD MD pkl Quilty, Betty bq Sanford, Demi ds1 Aristides Mukherjee RN RN la1 Hall, Patricia, RN RN Trista Shin Elena, RN RN ea Davies, Jonathon, RN RN jd3 Ballard, Brenda RN bb Patricia Hall RN
[2018-06-11] MEDS ORDERED: IPRATROPIUM BROM 0.5MG/2.5ML NEB PRN (06:51)
[2018-06-11] MEDS ORDERED: GLUCAGON 1 MG/VIAL IM PRN (06:51)
[2018-06-11] MEDS ORDERED: ONDANSETRON 4 MG/2 ML VIAL IV PRN (06:51)
[2018-06-11] MEDS ORDERED: D50W 25 GM/50 ML SYRINGE IV PRN (06:51)
[2018-06-11] MEDS ORDERED: NA CHLORIDE 0.9% 500 ML IV ONE ×2 (06:51→17:20)
[2018-06-11] MEDS ORDERED: ACETAMINOPHEN 500 MG TAB PO PRN (06:51)
[2018-06-11] MEDS ORDERED: ALBUTEROL 2.5 MG/3 ML NEB SOL NEB PRN (06:51)
[2018-06-11] MEDS: INSULIN -REGULAR HUMAN 50 UNIT/0.5 ML ML SQ SCH ×4 (07:30→21:00)
--- NOTE | 2018-06-11 07:49 | EKG ---
Test Date: 2018-06-11 Test Time: 05:15:05 Superintendent Custodian Janitor: AALIYAH MEASUREMENT RESULTS: Intervals: Rate: 98 MA: 146 QRSD: 88 QT: 358 QTc: 457 Cameron: P: 74 MA: 146 QRS: 68 T: 39 INTERPRETIVE STATEMENTS: Normal sinus rhythm Cannot rule out Anterior infarct, age undetermined Abnormal ECG Compared to ECG 04/29/2018 15:42:05 Myocardial infarct finding now present Sinus tachycardia no longer present Electronically Signed On 06-11-18 07:48:35 CDT by Miguel A Tidwell
[2018-06-11] MEDS: INSULIN GLARGINE 100 UNITS/ML SQ SCH (08:00)
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
[2018-06-11] MEDS: FLUTICASONE 50MCG NASAL SPRAY NAS SCH ×2 (09:00→21:16)
[2018-06-11] MEDS ORDERED: INSULIN -REGULAR HUMAN 50 UNIT/0.5 ML ML ONE (09:08)
[2018-06-11] MEDS ORDERED: INSULIN GLARGINE 100 UNITS/ML SQ ONE (09:13)
--- NOTE | 2018-06-11 09:14 | RAD REPORT ---
EXAM DESCRIPTION: CT - Chest For Pe Angio - 06/11/2018 9:04 am CLINICAL HISTORY: Chest pain and shortness of breath COMPARISON: December 2017 TECHNIQUE: Dynamically enhanced axial 3 mm thick images of the chest were obtained during administra tion of <100> mL Isovue 370 IV contrast. Coronal and oblique reconstruction images were generated and reviewed. Exam utilizes a protocol for optimal evaluation of pulmonary arterial tree. Maximum intensity projections 3D imaging was utilized All CT scans are performed using dose optimization technique as appropriate and may include automated exposure control or mA/KV adjustment according to patient size. FINDINGS: A pulmonary embolus is not seen. A thoracic aortic aneurysm is not noted. A pleural effusion is not seen. A pericardial effusion is not seen. A lung consolidation is not present. Minimal left lower lobe atelectasis is seen. Left lobe of the liver is prominent IMPRESSION: Negative for a pulmonary embolism.
--- NOTE | 2018-06-11 09:25 | RAD REPORT ---
EXAM DESCRIPTION: Jesus Single View06/11/2018 4:10 am CLINICAL HISTORY: Cough COMPARISON: June 07, 2018 FINDINGS: The lungs appear clear of acute infiltrate. The heart is normal size IMPRESSION: No acute abnormalities displayed
[2018-06-11 09:57] LABS: Thyroid Stimulating Hormone 0.698 uIU/mL (0.360-3.740)
[2018-06-11 10:13] VITALS: BMI 35.3
[2018-06-11] MEDS: NA CHLORIDE 0.9% 1,000 ML IV SCH ×3 (10:37→21:23)
[2018-06-11] MEDS: Levofloxacin500mg IV 500 MG/100 ML BAG IV SCH (10:41)
[2018-06-11] MEDS: ENOXAPARIN 40 MG/0.4 ML SQ SCH (10:45)
[2018-06-11] MEDS: LISINOPRIL 5 MG TAB PO SCH (10:45)
[2018-06-11] MEDS: BUPROPION HCL XL 150 MG TAB PO SCH (10:46)
[2018-06-11] MEDS: GUAIFENESIN 600 MG SA TAB PO SCH ×2 (10:46→21:18)
[2018-06-11] MEDS: PREGABALIN 150 MG CAP PO SCH (10:46)
[2018-06-11] MEDS: ASPIRIN EC 81 MG TAB PO SCH (10:46)
[2018-06-11 13:55] LABS: Urine Appearance CLEAR; Urine Bilirubin NEGATIVE (NEG); Urine Blood NEGATIVE (NEG); Urine Color YELLOW; Urine Glucose 3+ (NEG); Urine Protein NEGATIVE (NEG); Urine Specific Gravity >=1.030 (1.005-1.030); Urine Urobilinogen 0.2 mg/dL (0.2-1.0)
[2018-06-11 14:11] LABS: Urine Microscopic Reflex NO UMIC
[2018-06-11] MEDS ORDERED: ATORVASTATIN 20 MG TAB PO SCH (21:00)
[2018-06-11] MEDS: BENZONATATE 100 MG CAP PO PRN (21:17)
[2018-06-12] MEDS: BENZONATATE 100 MG CAP PO PRN (05:25)
[2018-06-12] MEDS ORDERED: METOPROLOL TAR 25 MG TAB PO SCH (06:00)
[2018-06-12] MEDS ORDERED: PANTOPRAZOLE 40MG TABLET PO SCH (06:30)
[2018-06-12] MEDS ORDERED: TRAMADOL HCL 50 MG TAB PO PRN (06:44)
[2018-06-12] MEDS ORDERED: TRAZODONE 50 MG TABLET PO PRN (06:44)
[2018-06-12 07:11] LABS: Magnesium 2.1 mg/dL (1.8-2.4); Potassium 3.5 mmol/L (3.5-5.1)
[2018-06-12 07:30] LABS: Absolute Lymphocytes (CBC) 3.4 K/uL (0.7-4.9); Absolute Monocytes 0.5 K/uL (0.1-1.3); Absolute Neutrophil 2.8 K/uL (1.8-8.0); Basophils % 0.8 % (0-1.3); Eosinophils % 4.4 % (0-4.4); Hematocrit 30.6 % (36.0-45.0); MCH 27.3 pg (27.0-35.0); MCV 80.8 fL (80-100); MPV 9.6 fL (7.6-11.3); Monocytes % 7.5 % (3.3-12.3); RBC Red Blood Cell Count 3.79 M/uL (3.86-4.86)
[2018-06-12] MEDS: INSULIN -REGULAR HUMAN 50 UNIT/0.5 ML ML SQ SCH (07:30)
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
[2018-06-12] MEDS: PREGABALIN 150 MG CAP PO SCH (08:50)
[2018-06-12] MEDS: LISINOPRIL 5 MG TAB PO SCH (08:50)
[2018-06-12] MEDS: GUAIFENESIN 600 MG SA TAB PO SCH (08:50)
[2018-06-12] MEDS: ENOXAPARIN 40 MG/0.4 ML SQ SCH (08:50)
[2018-06-12] MEDS: ASPIRIN EC 81 MG TAB PO SCH (08:50)
[2018-06-12] MEDS: BUPROPION HCL XL 150 MG TAB PO SCH (08:50)
[2018-06-12] MEDS: INSULIN GLARGINE 100 UNITS/ML SQ SCH (08:51)
[2018-06-12] MEDS: Levofloxacin500mg IV 500 MG/100 ML BAG IV SCH (08:51)
[2018-06-12] MEDS: FLUTICASONE 50MCG NASAL SPRAY NAS SCH (08:51)
[2018-06-12] MEDS ORDERED: DULOXETINE 30 MG CAP PO SCH (09:00)
[2018-06-12] MEDS ORDERED: FUROSEMIDE 20 MG TABLET PO SCH (09:00)
[2018-06-12] MEDS ORDERED: SUCRALFATE 1GM/10ML UCUP PO SCH (09:00)
[2018-06-12 09:01] VITALS: O2SAT 97
--- NOTE | 2018-06-12 10:44 | RAD REPORT ---
EXAM DESCRIPTION: RAD - Chest Pa And Lat (2 Views) - 06/12/2018 10:34 am CLINICAL HISTORY: follow up cough and congestion Chest pain. COMPARISON: Chest Single View dated 06/11/2018; Chest Pa And Lat (2 Views) dated 06/07/2018; Chest Sin gle View dated 04/29/2018; Chest Single View dated 12/19/2017; Chest For Pe Angio dated 06/11/2018 FINDINGS: The lungs are emphysematous but clear. The heart is normal in size. No displaced fractures . IMPRESSION: Mild COPD.
[2018-06-12 12:25] VITALS: BP 110/77; TEMP 97.6
[2018-06-12] MEDS ORDERED: HOME MED 1 EA UNK (Mirabegron [Myrbetriq] 1 TAB) PO SCH (21:00)
== END 2018-06-12 12:00 | disposition home or self-care (01) ==
LOC: ER 03:23 → ERHOLD 06:50 → 2ND 09:20
PROVIDERS: ADMIT Family Medicine; ATTEND Family Medicine
DX: R05 Cough (principal); R06.02 Shortness of breath; I25.10 Atherosclerotic heart disease of native coronary artery without angina pectoris; Z95.5 Presence of coronary angioplasty implant and graft; E10.9 Type 1 diabetes mellitus without complications; E78.5 Hyperlipidemia, unspecified; Z87.891 Personal history of nicotine dependence; K21.9 Gastro-esophageal reflux disease without esophagitis; M79.7 Fibromyalgia; F41.8 Other specified anxiety disorders; G47.00 Insomnia, unspecified; R32 Unspecified urinary incontinence; J98.11 Atelectasis; N28.9 Disorder of kidney and ureter, unspecified; R41.3 Other amnesia; Z98.84 Bariatric surgery status; D64.9 Anemia, unspecified
CPT/HCPCS: 36415 ×2; 71045; 71046; 71275; 80048 ×2; 80076; 81003; 82805; 82962 ×8; 83036; 83605 ×2; 83735 ×2; 83880; 84145; 84439; 84443; 84484; 85025 ×2; 85379; 85610; 87040 ×4; 87070; 87081; 87804 ×2; 93005; 94640; 96360; 96361; 96372; 99285; G0378 ×2; J1650 ×2; J2405; J7030 ×3; Q9967

== ENCOUNTER 2018-12-12 11:19 | Emergency (ER) | payer MEDICARE ==
--- OUTSIDE RECORDS SUMMARY | 2018-12-12 11:21 | XMS REPORT | Clinical Summary ---
:1965 Author Organization [facility] Address [address] [place] [address] Care Team Providers Name Role Phone Fabián Guerra Primary Care Provider Allergies Active Allergy Reactions Severity Noted Date Comments Food Allergy Formula 05/25/2014 GLUTEIN-SWELLING, BLOATING AND DIARRHEA. Medications Medication Sig Dispensed Refills Start End Date Status Date insulin aspart Inject 4 Units 0 Active (NOVOLOG) 100 subcutaneously 3 unit/mL InPn (three) times daily with meals And sliding scale. pregabalin (LYRICA) Take 150 mg by 0 Active 150 MG capsule mouth 2 (two) times daily. aspirin 81 MG Take 81 mg by 0 Active chewable tablet mouth daily. lisinopril Take 5 mg by mouth 0 Active (PRINIVIL,ZESTRIL) daily. 5 MG tablet buPROPion Take 150 mg by 0 Active (WELLBUTRIN XL) 150 mouth daily. MG 24 hr tablet DULoxetine Take 60 mg by 0 Active (CYMBALTA) 60 MG mouth daily. capsule cyclobenzaprine Take 10 mg by 0 Active (FLEXERIL) 10 MG mouth 2 (two) tablet times daily. promethazine Take 25 mg by 0 Active (PHENERGAN) 25 MG mouth every 6 tablet (six) hours as needed for Nausea. ondansetron Take 8 mg by mouth 0 Active (ZOFRAN) 4 MG as needed for tablet Nausea . furosemide (LASIX) Take 40 mg by 0 Active 40 MG tablet mouth as needed. pantoprazole Take 40 mg by 0 Active (PROTONIX) 40 MG mouth daily. tablet LORazepam (ATIVAN) Take 1 mg by mouth 0 Active 1 MG tablet every 6 (six) hours as needed for Anxiety. insulin glargine Inject 24 Units 0 Active (LANTUS) 100 subcutaneously unit/mL injection every morning Use as directed . metoprolol Take 25 mg by 0 Active (TOPROL-XL) 50 MG mouth daily . 24 hr tablet traZODone (DESYREL) Take 50 mg by 0 Active 50 MG tablet mouth nightly. dicyclomine Take 20 mg by 0 Active (BENTYL) 20 mg mouth as needed. tablet acetaminophen Take 500 mg by 0 Active (TYLENOL) 500 MG mouth every 6 tablet (six) hours as needed for Pain. prasugrel (EFFIENT) Take 10 mg by 0 05/24/20 Discontinued 10 mg Tab tablet mouth daily. 18 simvastatin (ZOCOR) Take 40 mg by 0 05/24/20 Discontinued 40 MG tablet mouth nightly. 18 ferrous sulfate 325 Take 325 mg by 0 05/24/20 Discontinued (65 FE) MG tablet mouth 2 (two) 18 times daily. acetaminophen Take 650 mg by 0 05/24/20 Discontinued (TYLENOL) 650 MG CR mouth 2 (two) 18 tablet times daily. Active Problems Problem Noted Date Trigger finger of left thumb 06/25/2017 Encounters Date Type Specialty Care Team Description 05/31/2018 Anesthesia Event Gastroenterology Octaviano Mejia MD 05/31/2018 Surgery Gastroenterology [place] Barahona UPPER ENDOSCOPY [facility] 05/31/2018 Hospital Encounter Gastroenterology Bo[place] Barahona [facility] 05/24/2018 Hospital Encounter Pre-Admission Testing Resource, [facility] Phone after 12/11/2017 Social History Tobacco Use Types Packs/Day Years Used Date Current Every Day Smoker 0.5 10 Smokeless Tobacco: Never Used Tobacco Cessation: Ready to Quit: Yes; Counseling Given: Yes Comments: handout to be given dos Alcohol Use Drinks/Week oz/Week Comments No Sex Assigned at Date Recorded Not on file Job Start Date Occupation Industry Not on file Not on file Not on file Travel History Travel Start Travel End No recent travel history available. Last Filed Vital Signs Vital Sign Reading [...] Procedure Name Priority Date/Time Associated Diagnosis Comments POCT-GLUCOSE METER Routine 05/31/2018 2:40 PM Results for this CDT procedure are in the results section. REPORT OF PROCEDURE 05/31/2018 2:37 PM - ENDOSCOPY URL CDT UPPER ENDOSCOPY 05/31/2018 1:00 PM Gastric bypass CDT status for obesity Gastroesophageal reflux disease, esophagitis presence not specified POCT-GLUCOSE METER Routine 05/31/2018 12:56 PM Results for this CDT procedure are in the results section. after 12/11/2017 Results POC-Glucose meter (05/31/2018 2:40 PM CDT)Only the most recent of2 resultswithin the time period is included. POC-Glucose Meter 211 (H)Comment: TESTED AT 70 - 110 mg/dL [facility] [address] [facility] [place] [address] Specimen Blood Performing Organization Address City/State/Zipcode Phone Number [facility] [address] [place] [address] CENTER REPORT OF PROCEDURE - ENDOSCOPY URL (05/31/2018 2:37 PM CDT) Narrative Performed At after 12/11/2017 Insurance Payer Benefit Plan / Group Subscriber ID Type Phone Address [facility] - MEDICARE AARP/MEDICARE COMPLETE xxxxxxxxx MGD CARE Advance Directives For more information, please contact:[address] [phone] Code Status Date Activated Date Inactivated Comments Full Code 06/25/2017 10:56 AM 06/25/2017 5:59 PM This code status was determined by: Patient
[2018-12-12 12:14] LABS: Absolute Lymphocytes (CBC) 1.3 K/uL (0.7-4.9); Absolute Monocytes 0.5 K/uL (0.1-1.3); Absolute Neutrophil 5.3 K/uL (1.8-8.0); Basophils % 0.5 % (0-1.3); Eosinophils % 1.6 % (0-4.4); Hematocrit 34.1 % (36.0-45.0); Lymphocytes % 18.2 % (15.3-44.8); MPV 9.3 fL (7.6-11.3); RBC Red Blood Cell Count 4.25 M/uL (3.86-4.86)
--- NOTE | 2018-12-12 12:28 | RAD REPORT ---
EXAM DESCRIPTION: CT - Head Brain Wo Cont - 12/12/2018 12:17 pm CLINICAL HISTORY: fall Fall, trauma, head injury COMPARISON: Head Brain Wo Cont dated 08/31/2016; HEAD BRAIN W O CONTRAST dated 07/04/2013 TECHNIQUE: All CT scans are performed using dose optimization technique as appropriate and may inclu de automated exposure control or mA/KV adjustment according to patient size. FINDINGS: No intracranial hemorrhage, hydrocephalus or extra-axial fluid collection.No areas of brai n edema or evidence of midline shift. The paranasal sinuses and mastoids are clear. The calvarium is intact. IMPRESSION: No acute intracranial abnormality.
--- OUTSIDE RECORDS SUMMARY | 2018-12-12 13:06 | XMS REPORT | Continuity of Care Document ---
:1965 Author Organization Interface Problems Problem Status Onset Classification Date Comments Source Date Reported PAIN IN Active 08/13/20 [facility] ABDOMEN/NAUSEA/TI Medical GHTENESS IN [facility] Center BDDC/GASTROESOPHA Active 07/24/20 [facility] GEAL REFLUX Medical DISEASE Center VOMITING Active 07/11/[address] GASTROPARESIS Active 07/11/[address] CHEST PAIN Active 04/02/[address] Center R/O ACS Active 04/02/[address] HYPERGLYCEMIA Active 03/06/20 [facility] DEHYDRATION [address] [place] [address] GASTROPARESIS Center SOB/CHEST PAIN Active 03/06/[address] NASEAU Active 01/11/[address] N/V Active 11/29/[address] VOMITTING, Active 11/29/19 [facility] DIABETIC, HEART [address] [place] [address] PT Center ACS R/O AND Active 11/17/19 [facility] PERSISTANT N/V [address] [place] [address] NAUSEA, VOMITTING Active 11/17/[address] MRSA<sup>1, Active 10/23/19 Problem 11/19/2012 2Problem [facility] </sup><sup>2</sup 13 added by Medical [facility] Expert. MRSA<sup>1, 2, 3, Active 10/23/19 Problem 08/15/2013 4Problem [facility] 4</sup> 13 added by Medical [facility] Expert. MRSA<sup>1, Active 10/23/19 Problem 04/05/2013 4Problem [facility] </sup><sup>2, 13 added by Medical </sup><sup>3, [facility] </sup><sup>4</sup Expert. 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/22/19 Problem 08/15/2013 [facility] infarction [address] [place] [address] [place] - Myocardial Resolved 10/22/19 Problem 04/05/[address] DSU/ REFLUX Active 06/13/[address] MORBID OBESITY Active 01/19/[address] Acid reflux Resolved Problem 04/05/2013 [facility] Anemia Resolved Problem 04/05/2013 [facility] Anxiety Resolved Problem 04/05/2013 [facility] Arthritis Resolved Problem 04/05/2013 [facility] Depression Resolved Problem 04/05/2013 [facility] Diabetes mellitus Resolved Problem 04/05/[address] Edema of lower Resolved Problem 04/05/2013 [facility] Fibromyalgia Resolved Problem 04/05/2013 [facility] Hyperlipidemia Resolved Problem 04/05/2013 [facility] Hypertension Resolved Problem 04/05/2013 [facility] Acid reflux Resolved Problem 08/15/2013 [facility] Anemia Resolved Problem 08/15/2013 [facility] Anxiety Resolved Problem 08/15/2013 [facility] Arthritis Resolved Problem 08/15/2013 [facility] Depression Resolved Problem 08/15/2013 [facility] Diabetes mellitus Resolved Problem 08/15/[address] Edema of lower Resolved Problem 08/15/2013 [facility] Fibromyalgia Resolved Problem 08/15/2013 [facility] Gastric ulcer Resolved Problem 08/15/2013 [facility] Hyperlipidemia Resolved Problem 08/15/2013 [facility] Hypertension Resolved Problem 08/15/2013 [facility] Neuropathy Resolved Problem 08/15/2013 [facility] Gastric ulcer Resolved Problem 04/05/2013 [facility] Neuropathy Resolved Problem 04/05/2013 [facility] CHEST PAIN NOS Active [facility] MORBID OBESITY Active [facility] NAUSEA WITH Active [facility] VOMITING [facility] OTHER GENERAL Active [facility] Medications Medication Details Route Status Patient Ordering Order Source Instructions Provider Date Zofran 4 mg 4 mg=1 tab, PO, Active De La Garza [facility] oral tablet BID, # 10 tab, 0 2012 Medical Refill(s) Center Reglan 10 mg 10 mg=1 tab, PO, Active De La Garza 08/13[facility] oral tablet QID, # 40 tab, 0 2012 Medical Refill(s) Center IDS med 5 mg, 1 mL, Inactive Ruggiero [facility] Rate: 30 ml/hr, 2012 Medical Infuse [...] mg, 1 mL, Inactive De La Garza [place] Route: IVPB, 2012 Medical Drug form: INJ, Center ONCE, Dosing Weight 81.818, kg, Priority: STAT, Start date: 08/13/13 13:17:00, Stop date: 08/13/13 13:17:00Do not give IV push. (Same as: Phenergan) Zofran 4 mg, 2 mL, Inactive De La Garza Fei Route: IVP, Drug 2012 Medical form: INJ, ONCE, Center Dosing Weight 81.818, kg, Priority: STAT, Start date: 08/13/13 12:41:00, Stop date: 08/13/13 12:41:00(Same as: Zofran) morphine 4 mg, 1 mL, Inactive De La Garza Fei Sulfate Route: IVP, Drug 2012 Medical form: INJ, ONCE, Center Dosing Weight 81.818, kg, Priority: STAT, Start date: 08/13/13 12:40:00, Stop date: 08/13/13 12:40:00(Same as:MORPhine Sulfate) Sodium Chloride 1,000 mL, Rate: Inactive Roberlewicz [place] 0.9% (Bolus) IV 1,000 ml/hr, 2012 Medical 1,000 mL Infuse over: 1 Center hr, Route: IV, Dosing Weight 81.818 kg, Total Volume: 1,000, Priority: STAT, Start date: 08/13/13 11:52:00, Duration: 1 doses or times, Stop date: 08/13/13 12:51:00, Bolus DoseBolus Dose normal saline 1,000 mL, Rate: Inactive Adolfo [place] 0.9% IV 1,000 500 ml/hr, 2012 Medical mL Infuse over: 2 Center hr, Route: IV, Dosing Weight 86.364 kg, Total Volume: 1,000, Start date: 07/14/13 14:02:00, Duration: 4 hr, Stop date: 07/14/13 18:01:00 Reglan 10 mg 10 mg, 1 tab, Inactive [facility] oral tablet Route: PO, Drug 2012 Medical form: TAB, Center TID-Before Meals, Dosing Weight 86.364, kg, Start date: 07/14/13 11:30:00, Duration: 30 day, Stop date: 08/13/13 7:30:00(Same as: Reglan) Take 30 min before meals Levemir 15 unit, 0.15 No Longer [facility] mL, Route: Active 2012 Medical SUB-Q, Drug Center form: INJ, BID, Dosing Weight 86.364, kg, Start date: 07/13/13 21:00:00, Duration: 30 day, Stop date: 08/12/13 9:00:00Same as Levemir "single patient use only" pneumococcal 0.5 ml, Route: No Longer SYSTEM [facility] 23-valent IM, Drug Form: Active 2012 Medical vaccine INJ, Start date: Burtrum 07/13/13 9:00:00, Stop date: 07/13/13 9:00:00 influenza virus 0.5 ml, Route: No Longer SYSTEM 07/13[facility] vaccine, IM, Drug Form: Active 2012 Medical inactivated SUSP, Start Center date: 07/13/13 9:00:00, Stop date: 07/13/13 9:00:00 lisinopril 20 mg, 1 tab, No Longer [facility] Route: PO, Drug Active 2012 Medical form: TAB, Center Daily, Dosing Weight 86.364, kg, Start date: 07/13/13 9:00:00, Duration: 30 day, Stop date: 08/11/13 9:00:00(Same as: Prinivil, Zestril) metoprolol 50 mg, Route: No Longer Taveras [facility] tartrate PO, Drug form: Active 2012 Medical TAB, Daily, Center Dosing Weight 86.364, kg, Start date: 07/13/13 9:00:00, Duration: 30 day, Stop date: 08/11/13 9:00:00 Lyrica 150 mg, 2 cap, No Longer [facility] Route: PO, Drug Active 2012 Medical form: CAP, BID, Center Dosing Weight 86.364, kg, Start date: 07/13/13 9:00:00, Duration: 30 day, Stop date: 08/11/13 17:00:00(Same as: Lyrica) potassium 20 mEq, 1 tab, No Longer [facility] chloride Route: PO, Drug Active 2012 Medical form: ERTAB, Center Daily, Dosing Weight 86.364, kg, Start date: 07/13/13 9:00:00, Duration: 30 day, Stop date: 08/11/13 9:00:00(Same as: K-Dur 20) "Do Not Crush" With food and full glass of water Effient 10 mg, 1 tab, No Longer [facility] Route: PO, Drug Active 2012 Medical form: TAB, Center Daily, Dosing Weight 86.364, kg, Start date: 07/13/13 9:00:00, Duration: 30 day, Stop date: 08/11/13 9:00:00Same as Effient For patients 60kg, without history of TIA/Ischemic stroke and without likely bypass surgery Protonix 40 mg, 1 tab, No Longer [facility] Route: PO, Drug Active 2012 Medical form: ECTAB, Center BID-Before Meals, Dosing Weight 86.364, kg, Start date: 07/13/13 9:00:00, Stop date: 08/11/13 16:30:00Tablet should not be chewed or crushed. (Same as: Protonix) meloxicam 7.5 mg, Route: No Longer Taveras [facility] PO, Drug form: Active 2012 Medical TAB, BID, Dosing Center Weight 86.364, kg, Start date: 07/13/13 9:00:00, Duration: 30 day, Stop date: 08/11/13 17:00:00 magnesium oxide 400 mg, 1 tab, No Longer [facility] Route: PO, Drug Active 2012 Medical form: TAB, Center Daily, Dosing Weight 86.364, kg, Start date: 07/13/13 9:00:00, Duration: 30 day, Stop date: 08/11/13 9:00:00(Same as: Mag-Ox 400) Magnesium oxide [id number] elemental magnesium Dose=____mg magnesium oxide (___mg elemental magnesium) furosemide 40 40 mg, 1 tab, No Longer [facility] mg oral tablet Route: PO, Drug Active 2012 Medical form: TAB, Center Daily, Dosing Weight 86.364, kg, Start date: 07/13/13 9:00:00, Duration: 30 day, Stop date: 08/11/13 9:00:00(Same as: Lasix) May cause GI upset. Give with food or milk. ferrous sulfate 325 mg, 1 tab, No Longer [facility] Route: PO, Drug Active 2012 Medical form: ECTAB, Burtrum TID, Dosing Weight 86.364, kg, Start date: 07/13/13 9:00:00, Duration: 30 day, Stop date: 08/11/13 17:00:00Give with food. "Do Not Crush" clonazepam 0.5 mg, 1 tab, No Longer [facility] Route: PO, Drug Active 2012 Medical form: TAB, TID, Center Dosing Weight 86.364, kg, Start date: 07/13/13 9:00:00, Duration: 30 day, Stop date: 08/11/13 17:00:00(Same As: Klonopin) Insulin regular 5 unit, 0.05 mL, No Longer [facility] Route: SUB-Q, Active 2012 Medical Drug [...] Reglan 10 mg, 2 mL, No Longer [facility] Route: IVP, Drug Active 2012 Medical form: INJ, Q6H, Center Dosing Weight 86.364, kg, Start date: 07/13/13 0:00:00, Duration: 30 day, Stop date: 08/11/13 18:00:00(Same as: Reglan) normal saline 1,000 mL, Rate: No Longer [facility] 0.9% IV 1,000 200 ml/hr, Active 2012 Medical mL Infuse over: 5 Center hr, Route: IV, Dosing Weight 86.364 kg, Total Volume: 1,000, Start date: 07/12/13 21:08:00, Duration: 3 doses or times, Stop date: 07/13/13 12:07:00 metoprolol 50 mg, 1 tab, No Longer Adolfo [facility] tartrate Route: PO, Drug Active 2012 Medical form: TAB, Q12H, Center Dosing Weight 86.364, kg, Start date: 07/12/13 21:00:00, Duration: 30 day, Stop date: 08/11/13 9:00:00(Same as: Lopressor) Levemir 12 unit, 0.12 No Longer [facility] mL, Route: Active 2012 Medical SUB-Q, Drug Burtrum form: INJ, BID, Dosing Weight 86.364, kg, Start date: 07/12/13 21:00:00, Duration: 30 day, Stop date: 08/11/13 9:00:00Same as Levemir "single patient use only" Cymbalta 120 mg, 2 cap, No Longer [facility] Route: PO, Drug Active 2012 Medical form: DRC, Center Bedtime, Dosing Weight 86.364, kg, Start date: 07/12/13 21:00:00, Duration: 30 day, Stop date: 08/10/13 21:00:00Non Formulary Drug (Same as: Cymbalta) (Do Not Crush) ProAir HFA 90 2 puff, Route: No Longer Taveras [facility] mcg/inh INHALATION, Drug Active 2012 Medical inhalation Form: AERO/A, Center aerosol with Dosing Weight adapter 86.364, kg, QID, PRN Shortness of breath, Start date: 07/12/13 20:09:00, Duration: 30 day, Stop date: 08/11/13 20:08:00Albutero l 90 microgram/inh 8gm HFA Same as: Alessio Arevalotil aspirin 81 mg 81 mg, 1 tab, No Longer [facility] tablet, enteric Route: PO, Drug Active 2012 Medical coated form: ECTAB, Burtrum Daily, Dosing Weight 86.364, kg, Start date: 07/12/13 20:00:00, Duration: 30 day, Stop date: 08/11/13 9:00:00Do not crush or chew. (Same As: Ecotrin) glucagon 1 mg, Route: IM, No Longer [facility] Drug form: Active 2012 Medical PDR/INJ, PRN, Center Dosing Weight 86.364, kg, PRN Blood Glucose Results, Start date: 07/12/13 18:26:00, Duration: 30 day, Stop date: 08/11/13 18:25:00 Dextrose 50% 12.5 gm, 25 mL, No Longer [facility] Syringe Route: IVP, Drug Active 2012 Medical Form: INJ, Center Dosing Weight 86.364, kg, PRN, PRN Blood Glucose Results, Start date: 07/12/13 18:26:00, Duration: 30 day, Stop date: 08/11/13 18:25:00 insulin aspart 4 unit, 0.04 mL, No Longer [facility] Route: SUB-Q, Active 2012 Medical Drug form: SOLN, [place]trum TID-Before Meals, Dosing Weight 86.364, kg, PRN Blood Glucose Results, Start date: 07/12/13 18:26:00, Duration: 30 day, Stop date: 08/11/13 18:25:00Roll in palms of hands gently; Do not shake vigorously. (Same as: NovoLog) "single patient use only" Stable for 28 days at room temperature. Expires in days from Da te tramadol 50 mg 50 mg, 1 tab, No Longer [facility] oral tablet Route: PO, Drug Active 2012 Medical form: TAB, Q4H, Center Dosing Weight 86.364, kg, PRN as needed for pain, Start date: 07/12/13 18:24:00, Duration: 30 day, Stop date: 08/11/13 18:23:00Not to exceed 400mg/day. (Same As: Ultram) acetaminophen-h 1 tab, Route: No Longer [facility] ydrocodone 325 PO, Drug Form: Active 2012 Medical mg-5 mg oral TAB, Dosing Center tablet Weight 86.364, kg, Q4H, PRN Pain, Start date: 07/12/13 18:23:00, Duration: 30 day, Stop date: 08/11/13 18:22:00(Same as: [place] 325/5) Do not exceed 4gm/day of acetaminophen. Flexeril 10 mg, 1 tab, No Longer [facility] Route: PO, Drug Active 2012 Medical form: TAB, TID, Center Dosing Weight 86.364, kg, PRN Spasm, Start date: 07/12/13 18:23:00, Duration: 30 day, Stop date: 08/11/13 18:22:00(Same As: Flexeril) benzonatate 100 mg, 1 cap, No Longer [facility] Route: PO, Drug Active 2012 Medical form: CAP, TID, Center Dosing Weight 86.364, kg, PRN as needed for cough, Start date: 07/12/13 18:23:00, Duration: 30 day, Stop date: 08/11/13 18:22:00(Same As: Oleksandr Francis) "Do Not Crush" Saline Flush 5 ml, Route: No Longer [facility] 0.9% IVP, Drug Form: Active 2012 Medical INJ, Dosing Center Weight 86.364, kg, PRN, PRN Line Flush, Start date: 07/12/13 18:22:00, Duration: 30 day, Stop date: 08/11/13 18:21:00(Same as: BD Posiflush) ondansetron 4 mg, 2 mL, No Longer [facility] Route: IVP, Drug Active 2012 Medical form: INJ, Q8H, Center Dosing Weight 86.364, kg, PRN Nausea & Vomiting, Start date: 07/12/13 18:22:00, Duration: 30 day, Stop date: 08/11/13 18:21:00(Same as: Zofran) aspirin 81 mg 81 mg, 1 tab, Active [facility] tablet, enteric PO, Daily, 0 2012 Medical coated tab, Center Substitution Allowed, ECTAB Klor-Con M20 20 mEq, 1 tab, No Longer [facility] [place] oral tablet, PO, Daily, 180 Active 2012 Medical extended tab, Center release Substitution Allowed, ERTAB furosemide 40 40 mg, 1 tab, No Longer [facility] mg oral tablet PO, Daily, 30 Active 2012 Medical tab, Center Substitution Allowed, TAB benzonatate 100 PO, TID, PRN, 1 Active [facility] mg oral capsule to 2 tabs, prn, 2012 Medical Substitution Center Allowed1 to 2 tabs metoprolol 50 mg, 1 tab, No Longer [facility] tartrate 50 mg PO, Daily, 180 Active 2012 Medical oral tablet tab, Center Substitution Allowed, TAB Reglan 10 mg, 2 mL, Inactive Clover Simmons [facility] Route: IVP, Drug 2012 Medical form: INJ, ONCE, Center Dosing Weight 86.364, kg, Priority: STAT, Start date: 07/12/13 12:12:00, Stop date: 07/12/13 12:12:00(Same as: Reglan) Zofran 4 mg, Route: Inactive Felicia 07/12[facility] IVP, Drug form: 2012 Medical INJ, ONCE, Center Dosing Weight 86.364, kg, Priority: STAT, Start date: 07/12/13 10:52:00, Stop date: 07/12/13 10:52:00 morphine 4 mg, Route: Inactive [facility] 07/12[facility] Sulfate IVP, Drug form: 2012 Medical INJ, ONCE, Center Dosing Weight 86.364, kg, Priority: STAT, Start date: 07/12/13 10:51:00, Stop date: 07/12/13 10:51:00 Zofran 4 mg, 2 mL, Inactive Clover Simmons 07/12[facility] Route: IVP, Drug 2012 Medical form: [...] Stop date: 07/12/13 11:05:00, Bolus DoseBolus Dose [place] 5/325 1 tab, Route: Inactive Clover Simmons [...] ODT 8 mg, Route: PO, Inactive Tiara [facility] Drug form: 2012 Medical TABDIS, ONCE, Center Dosing Weight 86.364, kg, Priority: STAT, Start date: 07/12/13 6:56:00, Stop date: 07/12/13 6:56:00 Levemir 10 unit, 0.1 mL, Inactive Tiara 07/12[facility] Route: SUB-Q, 2012 Medical Drug form: INJ, Center ONCE, Dosing Weight 86.364, kg, Start date: 07/12/13 4:20:00, Stop date: 07/12/13 4:20:00Same as Levemir "single patient use only" Omnipaque 100 mL, Route: Inactive [place] 07/12[facility] Fei 350mg/ml IVP, Drug Form: 2012 Medical SOLN, Dosing Center Weight 86.364, kg, ONCALL, STAT, Start date: 07/12/13 4:18:00, Duration: 1 doses or times, Dose=2.2ml/kg, Max [id number] -- "To be infused by Radiology Staff ONLY"Dose=2.2ml/ kg, Max [id number]=[id number] -- "To be infused by Radiology Staff [...] mg, 1 tab, PO No Longer Omidvar [facility] Route: PO, Drug Active 2012 Medical form: TAB, Center Daily, Dosing Weight 90, kg, Start date: 04/03/13 9:00:00, Duration: 30 day, Stop date: 05/02/13 9:00:00 Lyrica 150 mg, 2 cap, PO No Longer Omidvar [facility] Route: PO, Drug Active 2012 Medical form: CAP, BID, Center Dosing Weight 90, kg, Start date: 04/03/13 9:00:00, Duration: 30 day, Stop date: 05/02/13 17:00:00 Protonix 40 mg, 1 tab, PO No Longer Omidvar [facility] Route: PO, Drug Active 2012 Medical form: ECTAB, Center BID, Dosing Weight 90, kg, Start date: 04/03/13 9:00:00, Duration: 30 day, Stop date: 05/02/13 17:00:00 metoclopramide 10 mg, 1 tab, PO No Longer Omidvar [facility] 10 mg oral Route: PO, Drug Active 2012 Medical tablet form: TAB, TID, Center Dosing Weight 90, kg, Start date: 04/03/13 9:00:00, Duration: 30 day, Stop date: 05/02/13 17:00:00 meloxicam 7.5 mg, 1 tab, PO No Longer Omidvar [facility] Route: PO, Drug Active 2012 Medical form: TAB, BID, Center Dosing Weight 90, kg, Priority: Routine, Start date: 04/03/13 9:00:00, Duration: 30 day, Stop date: 05/02/13 17:00:00 lisinopril 20 mg, Route: PO No Longer Omidvar [facility] PO, Drug form: Active 2012 Medical TAB, Daily, Center Dosing Weight 90, kg, Start date: 04/03/13 9:00:00, Duration: 30 day, Stop date: 05/02/13 9:00:00 Levemir 12 unit, Route: SUB-Q No Longer Omidvar [facility] SUB-Q, BID, Active 2012 Medical Dosing Weight Center 90, kg, Start date: 04/03/13 9:00:00, Duration: 30 day, Stop date: 05/02/13 17:00:00 ferrous sulfate 325 mg, 1 tab, PO No Longer Omidvar Route: PO, Drug Active 2012 Medical form: ECTAB, [place] TID, Dosing Weight 90, kg, Start date: 04/03/13 9:00:00, Duration: 30 day, Stop date: 05/02/13 17:00:00 clonazepam 0.5 mg, 1 tab, PO No Longer Omidvar Route: PO, Drug Active 2012 Medical form: TAB, TID, Center Dosing Weight 90, kg, Start date: 04/03/13 9:00:00, Duration: 30 day, Stop date: 05/02/13 17:00:00 NovoLog 6 unit, 0.06 mL, SUB-Q No Longer Omidvar [facility] Route: SUB-Q, Active 2012 [facility], Dosing Weight 90, kg, Start date: 04/03/13 7:30:00, Duration: 30 day, Stop date: 05/02/13 16:30:00 heparin 5000 5,000 unit, 1 SUB-Q No Longer Omidvar [facility] units/mL mL, Route: Active 2012 Medical injectable SUB-Q, Drug Burtrum solution form: INJ, Q8H, Dosing Weight 90, kg, Start date: 04/03/13 0:00:00, Duration: 30 day, Stop date: 05/02/13 16:00:00 Cymbalta 120 mg, 2 cap, PO No Longer Omidvar Route: PO, Drug Active 2012 Medical form: DRC, [place] Bedtime, Dosing Weight 90, kg, Start date: 04/02/13 23:30:00, Duration: 30 day, Stop date: 05/02/13 21:00:00 Zocor 40 mg, 1 tab, PO No Longer Omidvar Route: PO, Drug Active 2012 Medical form: TAB, Center Bedtime, Dosing Weight 90, kg, Start date: 04/02/13 21:00:00, Duration: 30 day, Stop date: 05/01/13 21:00:00 Cymbalta 60 mg, 1 cap, PO No Longer Omidvar [facility] Route: PO, Drug Active 2012 Medical form: DRC, Center Bedtime, Dosing Weight 90, kg, Start date: 04/02/13 21:00:00, Duration: 30 day, Stop date: 05/01/13 21:00:00 magnesium oxide 400 mg, 1 tab, PO No Longer Omidvar [facility] Route: PO, Drug Active 2012 Medical form: TAB, Center Daily, Dosing Weight 90, kg, Priority: NOW, Start date: 04/02/13 20:45:00, Duration: 30 day, Stop date: 05/02/13 9:00:00 Levemir 12 unit, 0.12 SUB-Q No Longer Omidvar [facility] mL, Route: Active 2012 Medical SUB-Q, Drug Center form: INJ, BID, Dosing Weight 90, kg, Start date: 04/02/13 20:45:00, Duration: 30 day, Stop date: 05/02/13 17:00:00 hydrALAZINE 10 mg, 0.5 mL, IVP No Longer Omidvar [facility] Route: IVP, Drug Active 2012 Medical form: INJ, Q4H, Center Dosing Weight 90, kg, PRN Hypertension, Start date: 04/02/13 20:37:00, Duration: 30 day, Stop date: 05/02/13 20:36:00 lisinopril 20 mg, 1 tab, PO No Longer Omidvar [facility] Route: PO, Drug Active 2012 Medical form: TAB, Center Daily, Dosing Weight 90, kg, Start date: 04/02/13 20:30:00, Duration: 30 day, Stop date: 05/02/13 9:00:00 metoprolol 12.5 mg, 1 ea, PO No Longer Omidvar [facility] tartrate Route: PO, Drug Active 2012 Medical form: TAB, BID, Center Dosing Weight 90, kg, Start date: 04/02/13 20:30:00, Duration: 30 day, Stop date: 05/02/13 17:00:00 insulin aspart 8 unit, 0.08 mL, SUB-Q No Longer Omidvar [facility] Route: SUB-Q, Active 2012 Medical Drug form: SOLN, Center TID-Before Meals, Dosing Weight 90, kg, PRN Blood Glucose Results, Start date: 04/02/13 20:30:00, Duration: 30 day, Stop date: 05/02/13 20:29:00 glucagon 1 mg, Route: IM, IM No Longer Omidvar [facility] Drug form: Active 2012 Medical PDR/INJ, PRN, Center Dosing Weight 90, kg, PRN Blood Glucose Results, Start date: 04/02/13 20:30:00, Duration: 30 day, Stop date: 05/02/13 20:29:00 Dextrose 50% 25 gm, 50 mL, IVP No Longer Omidvar [facility] Syringe Route: IVP, Drug Active 2012 Medical Form: INJ, Center Dosing Weight 90, kg, PRN, PRN Blood Glucose Results, Start date: 04/02/13 20:30:00, Duration: 30 day, Stop date: 05/02/13 20:29:00 Insulin regular 8 unit, Route: SUB-Q No Longer Omidvar [facility] SUB-Q, Active 2012 Medical TID-Before Center Meals, Dosing Weight 90, kg, PRN Blood Glucose Results, Start date: 04/02/13 20:29:00, Duration: 30 day, Stop date: 05/02/13 20:28:00 glucagon 1 mg, Route: IM, IM No Longer Omidvar [facility] PRN, Dosing Active 2012 Medical Weight 90, kg, Center PRN Blood Glucose Results, Start date: 04/02/13 20:29:00, Duration: 30 day, Stop date: 05/02/13 20:28:00 Dextrose 50% 50 mL, Route: IVP No Longer Omidvar [facility] Syringe IVP, Dosing Active 2012 Medical Weight 90, kg, Center PRN, PRN Blood Glucose Results, Start date: 04/02/13 20:29:00, Duration: 30 day, Stop date: 05/02/13 20:28:00 Zofran 4 mg, 2 mL, IV No Longer Omidvar [facility] Route: IV, Drug Active 2012 Medical form: INJ, Q8H, Center Dosing Weight 90, kg, PRN Nausea, Start date: 04/02/13 20:29:00, Duration: 30 day, Stop date: 05/02/13 20:28:00 Maalox Advanced 30 mL, Route: PO No Longer Omidvar [facility] Regular PO, Drug Form: Active 2012 Medical Strength SUSP SUSP, Dosing Center Weight 90, kg, QID, PRN Indigestion, Start date: 04/02/13 20:28:00, Duration: 30 day, Stop date: 05/02/13 20:27:00 Flexeril 10 mg, 1 tab, PO No Longer Omidvar [facility] Route: PO, Drug Active 2012 Medical form: TAB, TID, Center Dosing Weight 90, kg, PRN Spasm, Start date: 04/02/13 20:22:00, Duration: 30 day, Stop date: 05/02/13 20:21:00 acetaminophen-h 1 tab, Route: PO No Longer Omidvar [facility] ydrocodone 325 PO, Drug Form: Active 2012 Medical mg-5 mg oral TAB, Dosing Center tablet Weight 90, kg, Q4H, PRN Pain, Start date: 04/02/13 20:22:00, Duration: 30 day, Stop date: 05/02/13 20:21:00 Phenergan 12.5 mg, 0.5 mL, IVPB No Longer Mitch [facility] Route: IVPB, Active 2012 Medical Drug form: INJ, Center ONCE, Dosing Weight 90, kg, Start date: 04/02/13 20:11:00, Stop date: 04/02/13 20:11:00 morphine 4 mg, 1 mL, IVP No Longer Mitch [facility] Sulfate Route: IVP, Drug Active 2012 Medical form: INJ, ONCE, Center Dosing Weight 90, kg, Start date: 04/02/13 20:10:00, Stop date: 04/02/13 20:10:00 Phenergan 12.5 mg, 0.5 mL, IVPB No Longer Zhang [facility] Route: IVPB, Active 2012 Medical Drug form: INJ, Center ONCE, Dosing Weight 90, kg, Priority: STAT, Start date: 04/02/13 17:11:00, Stop date: 04/02/13 17:11:00 Zofran 4 mg, 2 mL, IVP No Longer Zhang [facility] Route: IVP, Drug Active 2012 Medical form: INJ, ONCE, Center Dosing Weight 90, kg, Priority: STAT, Start date: 04/02/13 16:52:00, Stop date: 04/02/13 16:52:00 nitroglycerin 0.4 mg, 1 tab, SL No Longer Kiki [facility] Route: SL, Drug Active 2012 Medical form: TAB, Center Q5Min, Dosing Weight 90, kg, PRN Chest Pain, Priority: STAT, Start date: 04/02/13 16:31:00, Duration: 3 doses or times, Stop date: Limited # of times aspirin 325 mg, 1 tab, PO No Longer Kiki [facility] Route: PO, Drug Active 2012 Medical form: ECTAB, Center ONCE, Dosing Weight 90, kg, Priority: STAT, Start date: 04/02/13 16:31:00, Stop date: 04/02/13 16:31:00 morphine 4 mg, 1 mL, IVP No Longer Kiki [facility] Sulfate Route: IVP, Drug Active 2012 Medical form: INJ, ONCE, Center Dosing Weight 90, kg, Start date: 04/02/13 16:30:00, Stop date: 04/02/13 16:30:00 erythromycin 1 cap, PO, Q12H, PO Active Osuagwu [place] 250 mg oral 14 cap, 2012 Medical enteric coated Substitution Center tablet Allowed, ECTAB GI cocktail 30 ml, Route: PO No Longer Osuagwu [facility] PO, Drug Form: Active 2012 Medical [...] gm, 50 mL, IVPB No Longer Osuagwu [facility] sulfate Route: IVPB, Active 2012 Medical Drug form: INJ, Center Q2H, Dosing Weight 90, kg, Total Dose=4 gm, Start date: 03/08/13 12:00:00, Duration: 2 doses or times, Stop date: 03/08/13 14:00:00, For Mg=1.5 - 1.7 mg/dLFor Mg=1.5 - 1.7 mg/dL insulin aspart 5 unit, 0.05 mL, SUB-Q No Longer Camcioglu [facility] Route: SUB-Q, Active 2012 Medical Drug form: [facility] ONCE, Dosing Weight 90, kg, Start date: 03/08/13 3:17:00, Stop date: 03/08/13 3:17:00 Zocor 40 mg, 1 tab, PO No Longer Talon [facility] Route: PO, Drug Active 2012 Medical form: TAB, Center Bedtime, Dosing Weight 90, kg, Start date: 03/07/13 21:00:00, Duration: 30 day, Stop date: 04/05/13 21:00:00 Cymbalta 120 mg, 2 cap, PO No Longer Talon [facility] Route: PO, Drug 2012 Medical form: [...] unit, 0.1 mL, SUB-Q No Longer Talon [facility] Route: SUB-Q, Active 2012 Medical Drug form: SOLN, Center ONCE, Dosing Weight 90, kg, Start date: 03/07/13 19:16:00, Stop date: 03/07/13 19:16:00 Lyrica 150 mg, 2 cap, PO No Longer Talon [facility] Route: PO, Drug Active 2012 Medical form: CAP, BID, Center Dosing Weight 90, kg, Start date: 03/07/13 17:00:00, Duration: 30 day, Stop date: 04/06/13 9:00:00 Protonix 40 mg, 1 tab, PO No Longer Talon [facility] Route: PO, Drug Active 2012 Medical form: ECTAB, Center BID, Dosing Weight 90, kg, Start date: 03/07/13 17:00:00, Duration: 30 day, Stop date: 04/06/13 9:00:00 meloxicam 7.5 mg, 1 tab, PO No Longer Talon [facility] Route: PO, Drug Active 2012 Medical form: TAB, Center BID-Meals, Dosing Weight 90, kg, Start date: 03/07/13 17:00:00, Duration: 30 day, Stop date: 04/06/13 8:00:00 Flexeril 10 mg, 1 tab, PO No Longer Talon [facility] Route: PO, Drug Active 2012 Medical form: TAB, BID, Center Dosing Weight 90, kg, Start date: 03/07/13 17:00:00, Duration: 30 day, Stop date: 04/06/13 9:00:00 NovoLog FlexPen 6 unit, 0.06 mL, SUB-Q No Longer Osuagwu [facility] Route: SUB-Q, Active 2012 Medical Drug form: SOLN, Center TID-Before Meals, Start date: 03/07/13 16:30:00, Duration: 30 day, Stop date: 04/06/13 11:30:00 Humalog 6 unit, Route: SUB-Q No Longer Talon [facility] SUB-Q, Active 2012 Medical TID-Before Center Meals, Dosing Weight 90, kg, Start date: 03/07/13 16:30:00, Duration: 30 day, Stop date: 04/06/13 11:30:00 heparin 5,000 unit, 1 SUB-Q No Longer Talon [facility] mL, Route: Active 2012 Medical SUB-Q, Drug Center form: INJ, Q8H, Dosing Weight 90, kg, Start date: 03/07/13 16:00:00, Duration: 30 day, Stop date: 04/06/13 8:00:00 Effient 10 mg, 1 tab, PO No Longer Talon [facility] Route: PO, Drug Active 2012 Medical form: TAB, Center Daily, Dosing Weight 90, kg, Start date: 03/07/13 13:30:00, Duration: 30 day, Stop date: 04/06/13 9:00:00 magnesium oxide 400 mg, 1 tab, PO No Longer Talon [facility] Route: PO, Drug Active 2012 Medical form: TAB, Center Daily, Dosing Weight 90, kg, Start date: 03/07/13 13:30:00, Duration: 30 day, Stop date: 04/06/13 9:00:00 lisinopril 20 mg, 1 tab, PO No Longer Talon [facility] Route: PO, Drug Active 2012 Medical form: TAB, Center Daily, Dosing Weight 90, kg, Start date: 03/07/13 13:30:00, Duration: 30 day, Stop date: 04/06/13 9:00:00 Reglan 5 mg, 1 tab, PO No Longer Talon [facility] Route: PO, Drug Active 2012 Medical form: TAB, TID, Center Dosing Weight 90, kg, Start date: 03/07/13 13:00:00, Duration: 30 day, Stop date: 04/06/13 9:00:00 ferrous sulfate 325 mg, 1 tab, PO No Longer Talon [facility] Route: PO, Drug Active 2012 Medical form: ECTAB, Center TID, Dosing Weight 90, kg, Start date: 03/07/13 13:00:00, Duration: 30 day, Stop date: 04/06/13 9:00:00 clonazepam 0.5 mg, 1 tab, PO No Longer Talon [facility] Route: PO, Drug Active 2012 Medical form: TAB, TID, Center Dosing Weight 90, kg, Start date: 03/07/13 13:00:00, Duration: 30 day, Stop date: 04/06/13 9:00:00 NovoLog 6 unit, SUB-Q, SUB-Q No Longer [place] TID-Before Active 2012 Medical Meals, Center Substitution Allowed Levemir 12 unit, SUB-Q, SUB-Q Active [place] BID, 2012 Medical Substitution Center Allowed NS 1,000 mL 1,000 mL, Rate: IV No Longer Talon Fei 125 ml/hr, Active 2012 Medical Infuse over: 8 Center hr, Route: IV, Dosing Weight 90 kg, Total Volume: 1,000, Start date: 03/07/13 12:19:00, Duration: 30 day, Stop date: 04/06/13 12:18:00 insulin aspart 2 unit, 0.02 mL, SUB-Q No Longer Talon [place] Route: SUB-Q, Active 2012 Medical Drug form: SOLN, Center TID-Before Meals, Dosing Weight 90, kg, PRN Blood Glucose Results, Start date: 03/07/13 11:55:00, Duration: 30 day, Stop date: 04/06/13 11:54:00 glucagon 1 mg, Route: IM, IM No Longer Talon [place] Drug form: Active 2012 Medical PDR/INJ, PRN, Center Dosing Weight 90, kg, PRN Blood Glucose Results, Start date: 03/07/13 11:55:00, Duration: 30 day, Stop date: 04/06/13 11:54:00 Dextrose 50% 12.5 gm, 25 mL, IVP No Longer Talon [place] Syringe Route: IVP, Drug Active 2012 Medical Form: INJ, Center Dosing Weight 90, kg, PRN, PRN Blood Glucose Results, Start date: 03/07/13 11:55:00, Duration: 30 day, Stop date: 04/06/13 11:54:00 Phenergan 12.5 mg, 0.5 mL, IVPB No Longer Talon [facility] Route: IVPB, Active 2012 Medical Drug form: INJ, Center Q4H, Dosing Weight 90, kg, PRN Nausea & Vomiting, Start date: 03/07/13 11:53:00, Duration: 30 day, Stop date: 04/06/13 11:52:00 albuterol 2.49 mg, 3 mL, NEB No Longer Talon [facility] 0.083% Route: NEB, Drug Active 2012 Medical inhalation form: SOLN, Center solution RQ4H, Dosing Weight 90, kg, PRN as needed for wheezing, Start date: 03/07/13 11:53:00, Duration: 30 day, Stop date: 04/06/13 11:52:00 Zofran 4 mg, 2 mL, IVP No Longer Talon [facility] Route: IVP, Drug Active 2012 Medical form: INJ, Q4H, Center Dosing Weight 90, kg, PRN Nausea, Start date: 03/07/13 11:53:00, Duration: 30 day, Stop date: 04/06/13 11:52:00 acetaminophen-h 1 tab, Route: PO No Longer Talon [facility] ydrocodone 325 PO, Drug Form: Active 2012 Medical mg-10 mg oral TAB, Dosing Center tablet Weight 90, kg, Q4H, PRN Pain Score 4-6, Start date: 03/07/13 11:51:00, Duration: 30 day, Stop date: 04/06/13 11:50:00 acetaminophen-h 1 tab, Route: PO No Longer Talon [facility] ydrocodone 325 PO, Drug Form: Active 2012 Medical mg-5 mg oral TAB, Dosing Center tablet Weight 90, kg, Q4H, PRN Pain Score 1-3, Start date: 03/07/13 11:51:00, Duration: 30 day, Stop date: 04/06/13 11:50:00 acetaminophen 650 mg, 2 tab, PO No Longer Talon [facility] Route: PO, Drug Active 2012 Medical form: TAB, Q4H, Center Dosing Weight 90, kg, PRN Pain 1-3/Temp > 100.4 F, Start date: 03/07/13 11:51:00, Duration: 30 day, Stop date: 04/06/13 11:50:00 morphine 2 mg, 1 mL, IVP No Longer Talon [facility] Sulfate Route: IVP, Drug Active 2012 Medical form: INJ, Q4H, Center Dosing Weight 90, kg, PRN Pain Score 7-10, Start date: 03/07/13 11:51:00, Duration: 30 day, Stop date: 04/06/13 11:50:00 docusate 100 mg, 1 cap, PO No Longer Talon [facility] Route: PO, Drug Active 2012 Medical form: CAP, BID, Center Dosing Weight 90, kg, PRN Constipation, Start date: 03/07/13 11:51:00, Duration: 30 day, Stop date: 04/06/13 11:50:00 Levemir 12 unit, 0.12 SUB-Q No Longer Chambers [facility] mL, Route: Active 2012 Medical SUB-Q, Drug Center form: INJ, ONCE, Dosing Weight 90, kg, Start date: 03/07/13 6:10:00, Stop date: 03/07/13 6:10:00 lidocaine-epi 1 ml, Route: SUB-Q No Longer Kiki [facility] [id number] SUB-Q, Drug Active 2012 Medical Form: SOLN, Center Dosing Weight 90, kg, ONCE, STAT, Start date: 03/07/13 5:18:00, Stop date: 03/07/13 5:18:00 Insulin regular 99 mL, Rate: IVPB No Longer Kiki [facility] 100 unit + Start Insulin Active [...] gm, 25 mL, IVP No Longer Kiki [facility] Syringe Route: IVP, Drug Active 2012 Medical Form: INJ, Center Dosing Weight 90, kg, PRN, PRN Blood Glucose Results, Start date: 03/07/13 5:13:00, Duration: 30 day, Stop date: 04/06/13 5:12:00 NS (Bolus) IV 1,000 mL, Rate: IV No Longer Kiki [facility] 1,000 mL 1,000 ml/hr, Active 2012 Medical Infuse over: 1 Center hr, Route: IV, Dosing Weight 90 kg, Total Volume: 1,000, Priority: STAT, Start date: 03/07/13 2:36:00, Duration: 1 doses or times, Stop date: 03/07/13 3:35:00, Bolus DoseBolus Dose magnesium 2 gm, 50 mL, IVPB No Longer Kiki [place] sulfate Route: IVPB, Active 2012 Medical Drug form: INJ, Center ONCE, Dosing Weight 90, kg, Start date: 03/07/13 2:35:00, Stop date: 03/07/13 2:35:00 Insulin regular 10 unit, 0.1 mL, SUB-Q No Longer Kiki [facility] Route: SUB-Q, 2012 Medical Drug form: SOLN, Center ONCE, Dosing Weight 90, kg, Priority: STAT, Start date: 03/07/13 2:16:00, Stop date: 03/07/13 2:16:00 Reglan 10 mg, 2 mL, IVP No Longer Kiki [facility] Route: IVP, Drug Active 2012 Medical form: INJ, ONCE, Center Dosing Weight 90, kg, Priority: STAT, Start date: 03/07/13 2:16:00, Stop date: 03/07/13 2:16:00 NS 1,000 mL 1,000 mL, Rate: IV No Longer Talon [place] 150 ml/hr, 2012 Medical Infuse over: 6.7 Center hr, Route: IV, Dosing Weight 90 kg, Total Volume: 1,000, Start date: 03/07/13 2:15:00, Duration: 30 day, Stop date: 04/06/13 2:14:00 droperidol 1.25 mg, Route: IVP No Longer Kiki [facility] IVP, ONCE, 2012 Medical Dosing Weight Center 90, kg, PRN Nausea & Vomiting, Start date: 03/07/13 0:48:00 D5W 1/2NS 1,000 1,000 mL, Rate: IV No Longer Kiki [place] mL 125 ml/hr, Active 2012 Medical Infuse over: 8 Center hr, Route: IV, Dosing Weight 90 kg, Total Volume: 1,000, Start date: 03/07/13 0:43:00, Duration: 30 day, Stop date: 04/06/13 0:42:00 Insulin regular 4 unit, 0.04 mL, SUB-Q No Longer Kiki [facility] Route: SUB-Q, Active 2012 Medical Drug form: SOLN, Center Sliding Scale, Dosing Weight 90, kg, PRN Blood Glucose Results, Start date: 03/07/13 0:01:00, Duration: 30 day, Stop date: 04/06/13 0:00:00 glucagon 1 mg, Route: IM, IM No Longer Kiki [facility] Drug form: Active 2012 Medical PDR/INJ, PRN, Center Dosing Weight 90, kg, PRN Blood Glucose Results, Start date: 03/07/13 0:01:00, Duration: 30 day, Stop date: 04/06/13 0:00:00 Dextrose 50% 25 gm, 50 mL, IVP No Longer Kiki [facility] Syringe Route: IVP, Drug Active 2012 Medical Form: INJ, Center Dosing Weight 90, kg, PRN, PRN Blood Glucose Results, Start date: 03/07/13 0:01:00, Duration: 30 day, Stop date: 04/06/13 0:00:00 NS 1,000 mL 1,000 mL, Rate: IV No Longer Kiki [facility] 125 ml/hr, Active 2012 Medical Infuse over: 8 Center hr, Route: IV, Dosing Weight 90 kg, Total Volume: 1,000, Start date: 03/06/13 23:21:00, Duration: 30 day, Stop date: 04/05/13 23:20:00 NS (Bolus) IV 1,000 mL, Rate: IV No Longer Kiki [facility] 1,000 mL 1,000 ml/hr, Active 2012 Medical Infuse over: 1 Center hr, Route: IV, Dosing Weight 90 kg, Total Volume: 1,000, Priority: STAT, Start date: 03/06/13 23:21:00, Duration: 1 doses or times, Stop date: 03/07/13 0:20:00, Bolus DoseBolus Dose [place] 5/325 1 tab, PO, Q6H, PO No Longer [place] oral tablet PRN, 30 tab, Active 2012 Medical Substitution Center Allowed, Maintenance ferrous sulfate 325 mg, 1 tab, PO Active Talon [facility] 325 mg oral PO, TID, 30 tab, 2012 Medical enteric coated Substitution Center tablet Allowed, ECTAB acetaminophen-h 1 tab, PO, Q4H, PO Active [facility] ydrocodone 500 PRN, for pain, 2012 Medical mg-7.5 mg oral Substitution Center tablet Allowed, Maintenance, TAB meloxicam 7.5 7.5 mg, 1 tab, PO Active [place] 03/07[facility] mg oral tablet PO, BID, WITH 2012 Medical FOOD, 30 tab, [place] Substitution Allowed, TABWITH FOOD Zocor 40 mg 40 mg, 1 tab, PO Active [place] [facility] oral tablet PO, Bedtime, 30 2012 Medical tab, Center Substitution Allowed, Maintenance ProAir HFA 90 Substitution Active [facility] mcg/inh Allowed, 2012 Medical inhalation Maintenance Center aerosol with adapter Flexeril 10 mg 10 mg, 1 tab, PO Active [place] [facility] oral tablet PO, TID, PRN, 30 2012 Medical tab, for spasm, Center Substitution Allowed, TAB Protonix 40 mg 40 mg, 1 tab, PO Active Taylor [facility] oral enteric PO, BID, 30 tab, 2012 Medical coated tablet Substitution Center Allowed, ECTAB Lyrica 150 mg 150 mg, 1 cap, PO Active Taylor [facility] oral capsule PO, BID, 90 cap, 2012 [facility] Substitution [place] Allowed, CAP Flagyl 500 mg 500 mg, 1 tab, PO No Longer [facility] oral tablet PO, Q6H, 30 tab, Active 2012 [facility] Substitution [place] Allowed metoclopramide 10 mg, 1 tab, PO Active Taylor [facility] 10 mg oral PO, TID, 56 tab, 2012 Medical tablet Substitution Center Allowed, TAB NS (Bolus) IV 1,000 mL, Rate: IV No Longer Kiki [facility] 1,000 mL 1,000 ml/hr, Active 2012 Medical Infuse over: 1 Center hr, Route: IV, Dosing Weight 90 kg, Total Volume: 1,000, Priority: STAT, Start date: 03/06/13 21:27:00, Duration: 1 doses or times, Stop date: 03/06/13 22:26:00, Bolus DoseBolus Dose morphine 4 mg, 1 mL, IVP No Longer Kiki [facility] Sulfate Route: IVP, Drug Active 2012 Medical form: INJ, ONCE, Center Dosing Weight 90, kg, Start date: 03/06/13 21:27:00, Stop date: 03/06/13 21:27:00 Phenergan 12.5 mg, 0.5 mL, IVPB No Longer Kiki [facility] Route: IVPB, Active 2012 Medical Drug form: INJ, Center ONCE, Dosing Weight 90, kg, Priority: STAT, Start date: 03/06/13 21:26:00, Stop date: 03/06/13 21:26:00 ergocalciferol 50,000 IntlUnit, PO No Longer [place] [facility] 1 cap, Route: Active 2012 Medical PO, Drug form: Center CAP, qWeek, Dosing Weight 100, kg, Start date: 12/07/12 9:00:00, Duration: 30 day, Stop date: 01/04/13 9:00:00 erythromycin 250 mg, 1 tab, PO Active [facility] stearate 250 mg PO, Q6H, 56 tab, 2012 Medical oral tablet Substitution Center Allowed, TAB Protonix 40 mg 40 mg, 1 tab, PO Active [facility] oral enteric PO, Daily, 30 2012 Medical coated tablet tab, Center Substitution Allowed, ECTAB pravastatin 80 80 mg, 1 tab, PO Active [facility] mg oral tablet PO, Daily, 30 2012 Medical tab, Center Substitution Allowed, TAB insulin detemir 14 unit, 0.14 SUB-Q Active [facility] 100 units/mL mL, SUB-Q, 2012 Medical subcutaneous Bedtime, 100 mL, [place] solution Substitution Allowed, INJ insulin detemir 16 unit, 0.16 SUB-Q Active [facility] 100 units/mL mL, SUB-Q, 2012 Medical subcutaneous Daily, 100 mL, [place] solution Substitution Allowed, INJ Protonix 40 mg, Route: IVP No Longer [place] [facility] IVP, Drug form: Active 2012 Medical INJ, Daily, Center Dosing Weight 100, kg, Priority: NOW, Start date: 12/06/12 16:52:00, Duration: 30 day, Stop date: 01/05/13 9:00:00 insulin detemir 16 unit, 0.16 SUB-Q No Longer [place] [facility] mL, Route: Active 2012 Medical SUB-Q, Drug Center form: INJ, Daily, Dosing Weight 100, kg, Start date: 12/06/12 9:00:00, Stop date: 01/04/13 9:00:00 [place] 7.5/325 1 tab, Route: PO No Longer [place] [facility] oral tablet PO, Drug Form: Active 2012 Medical TAB, Dosing Center Weight 100, kg, ONCE, Start date: 12/06/12 0:19:00, Stop date: 12/06/12 0:19:00 Pravachol 80 mg, 4 tab, PO No Longer Brando [facility] Route: PO, Drug Active 2012 Medical form: TAB, Center Bedtime, Start date: 12/05/12 21:00:00, Duration: 30 day, Stop date: 01/03/13 21:00:00 insulin detemir 14 unit, 0.14 SUB-Q No Longer [place] [facility] mL, Route: Active 2012 Medical SUB-Q, Drug Center form: INJ, Bedtime, Dosing Weight 100, kg, Start date: 12/05/12 21:00:00, Stop date: 01/03/13 21:00:00 morphine 4 mg, 1 mL, IVP No Longer Brando [facility] Sulfate Route: IVP, Drug Active 2012 Medical form: INJ, ONCE, Center Dosing Weight 100, kg, Start date: 12/05/12 16:51:00, Stop date: 12/05/12 16:51:00 erythromycin + 250 mg, Route: IVPB No Longer Brando [facility] Sodium Chloride IVPB, Q8H, Active 2012 Medical 0.9% IV 100 mL Dosing Weight Center 100, kg, Start date: 12/05/12 16:00:00, Duration: 30 day, Stop date: 01/04/13 8:00:00 potassium 20 mEq, 100 mL, IVPB No Longer Brando [facility] chloride Route: IVPB, Active 2012 Medical [...] 40 mEq, Route: IVPB No Longer Brando eFi chloride IVPB, ONCE, Active 2012 Medical Dosing [...] PO No Longer Brando Fei Route: PO, Drug Active 2012 Medical form: ECTAB, Center Daily, Dosing Weight 100, kg, Start date: 12/04/12 9:00:00, Duration: 30 day, Stop date: 01/02/13 9:00:00 potassium 40 mEq, Route: IV No Longer Brando Fei chloride IV, ONCE, Dosing Active 2012 Medical Weight 100, kg, Center Start date: 12/04/12 8:20:00, Stop date: 12/04/12 8:20:00 Phenergan 25 mg, 1 supp, SD No Longer [place] Fei Route: SD, Drug Active 2012 Medical form: SUPP, Q4H, Center Dosing Weight 100, kg, PRN Nausea & Vomiting, Start date: 12/04/12 7:58:00, Duration: 30 day, Stop date: 01/03/13 7:57:00 Dextrose 50% 25 gm, 50 mL, IVP No Longer Brando [facility] Syringe Route: IVP, Drug Active 2012 Medical Form: INJ, Center Dosing Weight 100, kg, PRN, PRN Blood Glucose Results, Start date: 12/04/12 7:48:00, Duration: 30 day, Stop date: 01/03/13 7:47:00 glucagon 1 mg, Route: IM, IM No Longer Brando [place] Drug form: Active 2012 Medical PDR/INJ, PRN, Center Dosing Weight 100, kg, PRN Blood Glucose Results, Start date: 12/04/12 7:48:00, Duration: 30 day, Stop date: 01/03/13 7:47:00 insulin aspart 4 unit, 0.04 mL, SUB-Q No Longer [place] Route: SUB-Q, Active 2012 Medical Drug form: SOLN, Center Bedtime, Dosing Weight 100, kg, PRN Blood Glucose Results, Start date: 12/04/12 7:48:00, Duration: 30 day, Stop date: 01/03/13 7:47:00 Protonix 40 mg, Route: IV No Longer [place] IV, Drug form: Active 2012 Medical INJ, ONCE, Center Dosing Weight 100, kg, Start date: 12/04/12 3:12:00, Stop date: 12/04/12 3:12:00 potassium 20 mEq, 100 mL, IVPB No Longer Brando [facility] chloride Route: IVPB, Active 2012 Medical Q2H, Start date: [place] 12/03/12 8:00:00, Stop date: 12/03/12 11:00:00 potassium 40 mEq, Route: IV No Longer Brando [facility] chloride IV, ONCE, Dosing Active 2012 Medical Weight 100, kg, Center Start date: 12/03/12 7:02:00, Stop date: 12/03/12 7:02:00 NS 1,000 mL 1,000 mL, Rate: IV No Longer Brando [facility] 125 ml/hr, Active 2012 Medical Infuse over: 8 Center hr, Route: IV, kg, Total Volume: 1,000, Start date: 12/02/12 16:54:00, Duration: 30 day, Stop date: 01/01/13 16:53:00 NS (Bolus) IV 1,000 mL, Rate: IV No Longer Brando [facility] 1,000 mL 1,000 ml/hr, Active 2012 Medical Infuse over: 1 Center hr, Route: IV, kg, Total Volume: 1,000, Priority: STAT, Start date: 12/02/12 13:12:00, Duration: 1 doses or times, Stop date: 12/02/12 14:11:00, Bolus DoseBolus Dose NS (Bolus) IV 1,000 mL, Rate: IV No Longer Brando [facility] 1,000 mL 1,000 ml/hr, Active 2012 Medical Infuse over: 1 Center hr, Route: IV, kg, Total Volume: 1,000, Priority: STAT, Start date: 12/02/12 12:10:00, Duration: 1 doses or times, Stop date: 12/02/12 13:09:00, Bolus DoseBolus Dose insulin detemir 20 unit, 0.2 mL, SUB-Q No Longer V[place] [facility] Route: SUB-Q, Active 2012 Medical Drug form: INJ, Center BID, Dosing Weight 100, kg, Start date: 12/02/12 9:00:00, Duration: 30 day, Stop date: 12/31/12 21:00:00 calcium 1,000 mg, 10 mL, IVPB No Longer Taver[place] [facility] chloride + Route: IVPB, Active 2012 Medical Sodium Chloride ONCE, Start Center 0.9% IV 100 mL date: 12/02/12 5:08:00, Stop date: 12/02/12 5:08:00 ceftriaxone 1 gm, Route: IVPB No Longer Brando [facility] IVPB, Drug form: Active 2012 Medical PDR/INJ, Center [id number], Dosing Weight 100, kg, Start date: 12/02/12 5:00:00, Duration: 30 day, Stop date: 12/31/12 5:00:00 calcium 1,000 mg, Route: IVPB No Longer [place] [facility] gluconate IVPB, Drug form: Active 2012 Medical INJ, ONCE, Center Dosing Weight 100, kg, Start date: 12/02/12 5:00:00, Stop date: 12/02/12 5:00:00 Dextrose 50% 25 mL, Route: IVP No Longer Mod[place] [facility] Syringe IVP, Dosing Active 2012 Medical Weight 100, kg, Center PRN, PRN Blood Glucose Results, Start date: 12/02/12 4:51:00, Duration: 30 day, Stop date: 01/01/13 4:50:00 Insulin regular 100 mL, Rate: IVPB No Longer Modesta [facility] 100 unit + Start Insulin Active [...] 4 mg, Route: IVP No Longer Modesta [facility] IVP, Drug form: Active 2012 Medical INJ, ONCE, Center Dosing Weight 100, kg, Priority: STAT, Start date: 12/02/12 4:47:00, Stop date: 12/02/12 4:47:00 normal saline 1,000 mL, Rate: IV No Longer [place] 0.9% IV 1,000 1,000 ml/hr, Active 2012 Medical mL Infuse over: 1 Center hr, Route: IV, kg, Total Volume: 1,000, Start date: 12/02/12 3:19:00, Duration: 1 doses or times, Stop date: 12/02/12 4:18:00 Insulin regular 6 unit, 0.06 mL, IV No Longer [place] [facility] Route: IV, Drug Active 2012 Medical form: SOLN, Center ONCE, Dosing Weight 100, kg, Priority: STAT, Start date: 12/02/12 3:19:00, Stop date: 12/02/12 3:19:00 insulin aspart 3 unit, 0.03 mL, SUB-Q No Longer Brando [facility] Route: SUB-Q, Active 2012 Medical Drug form: SOLN, Center Bedtime, Dosing Weight 100, kg, PRN Blood Glucose Results, Start date: 12/01/12 13:23:00, Duration: 30 day, Stop date: 12/31/12 13:22:00 NS 1,000 mL 1,000 mL, Rate: IV No Longer Brando [place] 150 ml/hr, Active 2012 Medical Infuse over: 6.7 Center hr, Route: IV, kg, Total Volume: 1,000, Priority: NOW, Start date: 12/01/12 13:10:00, Duration: 1 doses or times, Stop date: 12/01/12 19:51:00 Insulin regular 2 unit, 0.02 mL, SUB-Q No Longer Brando [facility] Route: SUB-Q, Active 2012 Medical Drug form: SOLN, Center Bedtime, Dosing Weight 100, kg, PRN Blood Glucose Results, Start date: 12/01/12 13:08:00, Duration: 30 day, Stop date: 12/31/12 13:07:00 insulin aspart 4 unit, 0.04 mL, SUB-Q No Longer Brando [facility] Route: SUB-Q, Active 2012 Medical Drug form: SOLN, Center TID-Before Meals, Dosing Weight 100, kg, PRN Blood Glucose Results, Start date: 12/01/12 13:08:00, Duration: 30 day, Stop date: 12/31/12 13:07:00 Dextrose 50% 25 gm, 50 mL, IVP No Longer Brando [facility] Syringe Route: IVP, Drug Active 2012 Medical Form: INJ, Center Dosing Weight 100, kg, PRN, PRN Blood Glucose Results, Start date: 12/01/12 13:08:00, Duration: 30 day, Stop date: 12/31/12 13:07:00 glucagon 1 mg, Route: IM, IM No Longer Brando [facility] Drug form: Active 2012 Medical PDR/INJ, [...] unit, 0.01 mL, SUB-Q No Longer Brando 11/30[facility] Fei Route: SUB-Q, Active 2012 Medical Drug form: SOLN, Center Sliding Scale, Dosing Weight 100, kg, PRN Blood Glucose Results, Start date: 11/30/12 18:36:00, Duration: 30 day, Stop date: 12/30/12 18:35:00 insulin detemir 16 unit, 0.16 SUB-Q No Longer Brando [facility] mL, Route: Active 2012 Medical SUB-Q, Drug Center form: INJ, Q12H, Dosing Weight 100, kg, Start date: 11/30/12 14:00:00, Duration: 30 day, Stop date: 12/30/12 9:00:00 Zofran 4 mg, 2 mL, IV No Longer Lozada [facility] Route: IV, Drug Active 2012 Medical form: INJ, Q6H, Center Dosing Weight 100, kg, PRN Nausea, Start date: 11/30/12 13:32:00, Duration: 30 day, Stop date: 12/30/12 13:31:00 insulin aspart 10 unit, 0.1 mL, SUB-Q No Longer Lozada [facility] Route: SUB-Q, Active 2012 Medical Drug form: SOLN, Center TID-Before Meals, Dosing Weight 100, kg, PRN Blood Glucose Results, Start date: 11/30/12 13:26:00, Duration: 30 day, Stop date: 12/30/12 13:25:00 Zofran 4 mg, 2 mL, IV No Longer Brando [facility] Route: IV, Drug Active 2012 Medical form: INJ, Q8H, Center Dosing Weight 100, kg, PRN Nausea, Start date: 11/30/12 11:58:00, Duration: 30 day, Stop date: 12/30/12 11:57:00 Zofran 4 mg, 2 mL, IVP No Longer Randy [facility] Route: IVP, Drug Active 2012 Medical form: INJ, ONCE, Center Dosing Weight 100, kg, Priority: NOW, Start date: 11/30/12 11:57:00, Stop date: 11/30/12 11:57:00 potassium 2 pkt, Route: PO No Longer [place] phosphate-sodiu PO, Drug Form: Active 2012 Medical m phosphate 250 PDR/REC, ONCE, Center mg-278 mg-164 Start date: mg oral powder 11/30/12 10:00:00, Stop date: 11/30/12 10:00:00 Dextrose 5% 1,000 mL, Rate: IV No Longer Randy [place] with 0.45% NaCl 150 ml/hr, Active 2012 Medical IV 1,000 mL Infuse over: 6.7 Center hr, Route: IV, kg, Total Volume: 1,000, Start date: 11/30/12 9:12:00, Duration: 30 day, Stop date: 12/30/12 9:11:00 insulin detemir 16 unit, 0.16 SUB-Q No Longer [facility] Fei mL, Route: Active 2012 Medical SUB-Q, Drug Center form: INJ, Q12H, Dosing Weight 100, kg, Start date: 11/30/12 9:00:00, Duration: 30 day, Stop date: 12/29/12 21:00:00 heparin 5,000 unit, 1 SUB-Q No Longer Lozada 11/30[facility] Fe[facility] mL, Route: Active 2012 Medical SUB-Q, Drug Center form: INJ, Q8H, Dosing Weight 100, kg, Start date: 11/30/12 8:30:00, Duration: 30 day, Stop date: 12/30/12 8:00:00 magnesium 2 gm, Route: IVPB No Longer [facility] Fei sulfate IVPB, Drug form: Active 2012 Medical INJ, ONCE, Center Dosing Weight 100, kg, Total dose=2 gm, Start date: 11/30/12 8:05:00, Duration: 1 doses or times, Stop date: 11/30/12 8:05:00 potassium 30 mmol, Route: IVPB No Longer [facility] Fei phosphate IVPB, ONCE, Active 2012 Medical Dosing Weight Center 100, kg, Start date: 11/30/12 8:05:00, Duration: 1 doses or times, Stop date: 11/30/12 8:05:00, For PO4=1.5 - 1.9 mg/dL; Administer when level=3 - 3.4 mEq/L in place of KClFor PO4=1.5 - 1.9 mg/dL; Administer when level=3 - 3.4 mEq/L in place of KCl heparin 5000 5,000 unit, SUB-Q No Longer [facility] Fei units/mL Route: SUB-Q, Active 2012 Medical injectable Drug form: INJ, Center solution Q8H, Dosing Weight 100, kg, Start date: 11/30/12 8:00:00, Duration: 30 day, Stop date: 12/30/12 0:00:00 insulin aspart 10 unit, 0.1 mL, SUB-Q No Longer [facility] Route: SUB-Q, Active 2012 Medical Drug form: SOLN, Center TID-Before Meals, Dosing Weight 100, kg, PRN Blood Glucose Results, Start date: 11/30/12 7:57:00, Duration: 30 day, Stop date: 12/30/12 7:56:00 glucagon 1 mg, Route: IM, IM No Longer Lozada [facility] Drug form: Active 2012 Medical PDR/INJ, PRN, Center Dosing Weight 100, kg, PRN Blood Glucose Results, Start date: 11/30/12 7:57:00, Duration: 30 day, Stop date: 12/30/12 7:56:00 Dextrose 50% 25 gm, 50 mL, IVP No Longer Lozada [facility] Syringe Route: IVP, Drug Active 2012 [...] mg, 0.5 mL, IV No Longer Brando [facility] Route: IV, Drug Active 2012 Medical form: INJ, Q4H, Center Dosing Weight 100, kg, PRN Hypertension, Start date: 11/29/12 22:56:00, Duration: 30 day, Stop date: 12/29/12 22:55:00 simvastatin 40 mg, 1 tab, PO No Longer Ashby [facility] Route: PO, Drug Active 2012 Medical form: TAB, Center Bedtime, Dosing Weight 101.364, kg, Start date: 11/29/12 21:00:00, Duration: 30 day, Stop date: 12/28/12 21:00:00 Cymbalta 60 mg, 1 cap, PO No Longer Aaron [facility] Route: PO, Drug Active 2012 Medical form: DRC, Center Bedtime, Dosing Weight 101.364, kg, Start date: 11/29/12 21:00:00, Stop date: 12/28/12 21:00:00 ceftriaxone 1 gm, Route: IVPB No Longer Brando [facility] IVPB, Drug form: Active 2012 Medical PDR/INJ, Center [id number], Dosing Weight 100, kg, Start date: 11/29/12 20:00:00, Duration: 30 day, Stop date: 12/28/12 20:00:00 hydrALAZINE 5 mg, 0.25 mL, IV No Longer Brando [facility] Route: IV, Drug Active 2012 Medical form: INJ, Q4H, Center Dosing Weight 100, kg, PRN Hypertension, Start date: 11/29/12 19:42:00, Duration: 30 day, Stop date: 12/29/12 19:41:00 Phenergan 12.5 mg, 0.5 mL, IVPB No Longer Brando [facility] Route: IVPB, Active 2012 Medical Drug form: INJ, Center Q4H, Dosing Weight 100, kg, PRN Nausea & Vomiting, Start date: 11/29/12 17:56:00, Duration: 30 day, Stop date: 12/29/12 17:55:00 clonazepam 0.5 mg, 1 tab, PO No Longer Hendrix [facility] Route: PO, Drug Active 2012 Medical [...] 1,000 mL, Rate: IV No Longer Sushila [facility] mL 200 ml/hr, Active 2012 Medical Infuse over: 5 Center hr, Route: IV, kg, Total Volume: 1,000, Start date: 11/29/12 14:41:00, Stop date: 12/29/12 14:40:00 Sodium Chloride 1,000 mL, Rate: IV No Longer Simeon [facility] 0.9% IV 1,000 200 ml/hr, Active 2012 Medical mL Infuse over: 5 Center hr, Route: IV, kg, Total Volume: 1,000, Start date: 11/29/12 14:41:00, Stop date: 12/29/12 14:45:00 Insulin regular 99 mL, Rate: IV No Longer Nicho [facility] 100 unit + Start Insulin Active 2012 Medical Sodium Chloride Drip Per ICU Center 0.9% IV 99 mL protocol, Route: IV, kg, Total Volume: 100, Start date: 11/29/12 12:42:00, Stop date: 12/29/12 12:41:00 Insulin regular 100 mL, Rate: IVPB No Longer Nicho [facility] 100 unit + Start Insulin Active [...] gm, 25 mL, IVP No Longer Hendrix [facility] Syringe Route: IVP, Drug Active 2012 [...] 90 mg, 1 tab, PO No Longer Ashby [facility] Route: PO, Drug Active 2012 Medical form: ERTAB, Center Daily, Dosing Weight 101.364, kg, Start date: 11/29/12 9:00:00, Duration: 30 day, Stop date: 12/28/12 9:00:00 clonazepam 0.5 mg, 1 tab, PO No Longer [facility] Route: PO, Drug Active 2012 Medical form: TAB, TID, Center Dosing Weight 101.364, kg, Start date: 11/29/12 9:00:00, Duration: 30 day, Stop date: 12/28/12 17:00:00 lisinopril 20 mg, 1 tab, PO No Longer Ashby [facility] Route: PO, Drug Active 2012 Medical form: TAB, Q12H, Center Dosing Weight 101.364, kg, Start date: 11/29/12 9:00:00, Duration: 30 day, Stop date: 12/28/12 21:00:00 magnesium oxide 400 mg, 1 tab, PO No Longer Aaron [facility] Route: PO, Drug Active 2012 Medical form: TAB, Center Daily, Dosing Weight 101.364, kg, Start date: 11/29/12 9:00:00, Duration: 30 day, Stop date: 12/28/12 9:00:00 Effient 10 mg, 1 tab, PO No Longer Aaron [facility] Route: PO, Drug Active 2012 Medical form: TAB, Center Daily, Dosing Weight 101.364, kg, Start date: 11/29/12 9:00:00, Duration: 30 day, Stop date: 12/28/12 9:00:00 Levemir 8 unit, 0.08 mL, SUB-Q No Longer Ashby [facility] Route: SUB-Q, Active 2012 Medical Drug [...] 81 mg, 1 tab, PO No Longer Ashby Fe[facility] Route: PO, Drug Active 2012 Medical form: ECTAB, Center Daily, Dosing Weight 101.364, kg, Start date: 11/29/12 9:00:00, Duration: 30 day, Stop date: 12/28/12 9:00:00 Reglan 10 mg, 2 mL, IVP No Longer Nicho Fei Route: IVP, Drug 2012 Medical form: INJ, Center Q6H-02, Dosing [...] Nicho Fei oral tablet Route: PO, Drug 2012 Medical [...] mg, 0.4 mL, SUB-Q No Longer Hendrix [facility] Route: SUB-Q, Active 2012 Medical Drug form: INJ, Center [id number], Dosing Weight 101.364, kg, Start date: 11/29/12 4:00:00, Duration: 30 day, Stop date: 12/28/12 4:00:00 Phenergan 12.5 mg, 0.25 IVPB No Longer Aaron [facility] mL, Route: IVPB, Active 2012 Medical Drug form: INJ, Center Q4H, Dosing Weight 101.364, kg, Start date: 11/29/12 4:00:00, Duration: 30 day, Stop date: 12/29/12 0:00:00 tramadol 50 mg 50 mg, 1 tab, PO No Longer Aaron [facility] oral tablet Route: PO, Drug Active 2012 Medical form: TAB, Q4H, Center Dosing Weight 101.364, kg, PRN as needed for pain, Start date: 11/29/12 3:46:00, Duration: 30 day, Stop date: 12/29/12 3:45:00 insulin aspart 3 unit, 0.03 mL, SUB-Q No Longer Nicho [facility] Route: SUB-Q, Active 2012 Medical Drug form: SOLN, [place] TID-Before Meals, Dosing Weight 101.364, kg, PRN Blood Glucose Results, Start date: 11/29/12 3:26:00, Duration: 30 day, Stop date: 12/29/12 3:25:00 Dextrose 50% 12.5 gm, 25 mL, IVP No Longer Ashby [facility] Syringe Route: IVP, Drug Active 2012 Medical Form: INJ, Center Dosing Weight 101.364, kg, PRN, PRN Blood Glucose Results, Start date: 11/29/12 3:26:00, Duration: 30 day, Stop date: 12/29/12 3:25:00 glucagon 1 mg, Route: IM, IM No Longer Hendrix [facility] Drug form: Active 2012 Medical PDR/INJ, PRN, Center Dosing Weight 101.364, kg, PRN Blood Glucose Results, Start date: 11/29/12 3:26:00, Duration: 30 day, Stop date: 12/29/12 3:25:00 acetaminophen 650 mg, 20.3 mL, PO No Longer Hendrix [facility] Route: PO, Drug Active 2012 Medical form: LIQ, Q4H, Center Dosing Weight 101.364, kg, PRN Pain 1-3/Temp > 100.4 F, Start date: 11/29/12 3:25:00, Duration: 30 day, Stop date: 12/29/12 3:24:00 docusate 100 mg, 1 cap, PO No Longer Hendrix [facility] Route: PO, Drug Active 2012 Medical form: CAP, BID, Center Dosing Weight 101.364, kg, PRN Constipation, Start date: 11/29/12 3:25:00, Duration: 30 day, Stop date: 12/29/12 3:24:00 D5W 1/2NS 1,000 1,000 mL, Rate: IV No Longer Ashby [facility] mL 75 ml/hr, Infuse Active 2012 Medical over: 13.3 hr, Center Route: IV, kg, Total Volume: 1,000, Start date: 11/29/12 3:21:00, Duration: 30 day, Stop date: 12/29/12 3:20:00 NS 0.45% IV 1,000 mL, Rate: IV No Longer Aaron [facility] 1000 mL 125 ml/hr, Active 2012 Medical Infuse over: 8 Center hr, Route: IV, Dosing Weight 101.364 kg, Total Volume: 1,000, Start date: 11/29/12 3:18:00, Duration: 30 day, Stop date: 12/29/12 3:17:00 Reglan 10 mg, 2 mL, IVP No Longer Porter [facility] Route: IVP, Drug Active 2012 Medical form: INJ, ONCE, Center Dosing Weight 101.364, kg, Priority: STAT, Start date: 11/29/12 2:31:00, Stop date: 11/29/12 2:31:00 Zofran 8 mg, Route: IVP No Longer Porter [facility] IVP, Drug form: Active 2012 Medical INJ, ONCE, Center Dosing Weight 101.364, kg, Priority: STAT, Start date: 11/29/12 1:52:00, Stop date: 11/29/12 1:52:00 Lortab 500 5 ml, PO, Q6H, PO No Longer Eng Fei mg-7.5 mg/15 mL PRN, 120 mL, for Active 2012 Medical oral elixir pain, Center Substitution Allowed, Maintenance, ELIX Phenergan 25 mg 1 supp, SD, Q6H, SD Active Eng Fei rectal PRN, 9 supp, 2013 Medical suppository Nausea & Center Vomiting, Substitution Allowed Phenergan 12.5 mg, 0.5 mL, IVPB No Longer Porter Fei Route: IVPB, Active 2012 Medical Drug form: INJ, Center ONCE, Dosing Weight 101.364, kg, Priority: STAT, Start date: 11/29/12 0:56:00, Stop date: 11/29/12 0:56:00 Zofran 4 mg, 2 mL, IVP No Longer [facility] Fei Route: IVP, Drug 2012 Medical form: INJ, ONCE, Center Dosing Weight 101.364, kg, Priority: STAT, Start date: 11/28/12 23:49:00, Stop date: 11/28/12 23:49:00 Phenergan 12.5 mg, 0.5 mL, IVPB No Longer [place] Fei Route: IVPB, Active 2012 Medical Drug [...] 5 ml, Route: IVP No Longer Hendrix [facility] 0.9% IVP, Drug Form: Active 2012 Medical INJ, Dosing Center Weight 101.364, kg, PRN, PRN Line Flush, Start date: 11/28/12 19:29:00, Duration: 30 day, Stop date: 12/28/12 19:28:00 calcium 2,000 mg, 20 mL, IVPB No Longer Markus [facility] gluconate + Route: IVPB, Active 2012 Medical Sodium Chloride ONCE, Dosing Center 0.9% IV 80 mL Weight 103.21, kg, Start date: 11/17/12 11:02:00, Stop date: 11/17/12 11:02:00 magnesium 2 gm, 50 mL, IVPB No Longer Markus [facility] sulfate Route: IVPB, Active 2012 Medical Drug form: INJ, Center Q2H, Dosing Weight 103.21, kg, Total dose=4 gm, Start date: 11/17/12 10:00:00, Duration: 2 doses or times, Stop date: 11/17/12 12:00:00 aspirin 81 mg, 1 tab, PO No Longer Markus [facility] Route: PO, Drug Active 2012 Medical form: ECTAB, Center Daily, Dosing Weight 100, kg, Start date: 11/17/12 9:00:00, Duration: 30 day, Stop date: 12/16/12 9:00:00 simvastatin 40 mg, 1 tab, PO No Longer Markus [facility] Route: PO, Drug Active 2012 Medical form: TAB, Center Daily, Dosing Weight 100, kg, Start date: 11/17/12 9:00:00, Duration: 30 day, Stop date: 12/16/12 9:00:00 prasugrel 10 mg, 1 tab, PO No Longer Markus [facility] Route: PO, Drug Active 2012 Medical form: TAB, Center Daily, Dosing Weight 100, kg, Start date: 11/17/12 9:00:00, Duration: 30 day, Stop date: 12/16/12 9:00:00 NIFEdipine 90 mg, 1 tab, PO No Longer Markus [facility] Route: PO, Drug Active 2012 Medical form: ERTAB, Center Daily, Dosing Weight 100, kg, Start date: 11/17/12 9:00:00, Duration: 30 day, Stop date: 12/16/12 9:00:00 Toprol-XL 100 100 mg, 1 tab, PO No Longer Markus [facility] mg oral tablet, Route: PO, Drug Active 2012 Medical extended form: ERTAB, Center release Daily, Start date: 11/17/12 9:00:00, Duration: 30 day, Stop date: 12/16/12 9:00:00 magnesium oxide 400 mg, 1 tab, PO No Longer Markus [facility] Route: PO, Drug Active 2012 Medical form: TAB, Center Daily, Dosing Weight 100, kg, Start date: 11/17/12 9:00:00, Duration: 30 day, Stop date: 12/16/12 9:00:00 insulin detemir 15 unit, 0.15 SUB-Q No Longer Markus [facility] mL, Route: Active 2012 Medical SUB-Q, Drug Center form: INJ, Daily, Dosing Weight 100, kg, Start date: 11/17/12 9:00:00, Duration: 30 day, Stop date: 12/16/12 9:00:00 Zofran 8 mg, 4 mL, IV No Longer Markus [facility] Route: IV, Drug Active 2012 Medical form: INJ, Q4H, Center Dosing Weight 103.21, kg, PRN as needed for nausea/vomiting, Start date: 11/17/12 8:56:00, Duration: 30 day, Stop date: 12/17/12 8:55:00 Reglan 10 mg 10 mg, 1 tab, PO No Longer Markus [facility] oral tablet Route: PO, Drug Active 2012 Medical form: TAB, Center TID-Before Meals, Dosing Weight 100, kg, Start date: 11/17/12 7:30:00, Duration: 30 day, Stop date: 12/16/12 16:30:00 insulin aspart 4 unit, 0.04 mL, SUB-Q No Longer Markus [facility] Route: SUB-Q, Active 2012 Medical Drug form: SOLN, Center TID-Before Meals, Dosing Weight 100, kg, Start date: 11/17/12 7:30:00, Duration: 30 day, Stop date: 12/16/12 16:30:00 Cymbalta 120 mg, 2 cap, PO No Longer Markus [facility] Route: PO, Drug Active 2012 Medical form: DRC, Center Bedtime, Dosing Weight 100, kg, Start date: 11/16/12 21:00:00, Duration: 30 day, Stop date: 12/15/12 21:00:00 lisinopril 20 mg, 1 tab, PO No Longer Markus [facility] Route: PO, Drug Active 2012 Medical form: TAB, Q12H, Center Dosing Weight 100, kg, Start date: 11/16/12 21:00:00, Duration: 30 day, Stop date: 12/16/12 9:00:00 insulin detemir 12 unit, 0.12 SUB-Q No Longer Markus [facility] mL, Route: Active 2012 Medical SUB-Q, Drug Center form: INJ, Bedtime, Dosing Weight 100, kg, Start date: 11/16/12 21:00:00, Duration: 30 day, Stop date: 12/15/12 21:00:00 clonazepam 0.5 mg, 1 tab, PO No Longer Markus [facility] Route: PO, Drug Active 2012 Medical form: TAB, TID, Center Dosing Weight 100, kg, Start date: 11/16/12 20:30:00, Duration: 30 day, Stop date: 12/16/12 17:00:00 Neutra-Phos 1 pkt, Route: PO No Longer Markus [facility] PO, Drug Form: Active 2012 Medical PDR/REC, Dosing Center Weight 100, kg, TID-Before Meals, Start date: 11/16/12 20:30:00, Duration: 30 day, Stop date: 12/16/12 16:30:00 enoxaparin 40 mg, 0.4 mL, SUB-Q No Longer [place] [facility] Route: SUB-Q, Active 2012 Medical Drug form: INJ, Center [id number], Dosing Weight 100, kg, Start date: 11/16/12 19:00:00, Duration: 30 day, Stop date: 12/15/12 19:00:00 Sodium Chloride 1,000 mL, Rate: IV No Longer Fei 0.9% IV 1,000 125 ml/hr, Active 2012 Medical mL Infuse over: 8 Center hr, Route: IV, kg, Total Volume: 1,000, Start date: 11/16/12 18:10:00, Duration: 30 day, Stop date: 12/16/12 18:09:00 insulin aspart 10 unit, 0.1 mL, SUB-Q No Longer Markus [facility] Route: SUB-Q, Active 2012 Medical Drug form: SOLN, Center TID-Before Meals, Dosing Weight 100, kg, PRN Blood Glucose Results, Start date: 11/16/12 18:10:00, Duration: 30 day, Stop date: 12/16/12 18:09:00 Dextrose 50% 12.5 gm, 25 mL, IVP No Longer [facility] [facility] Route: IVP, Drug Active 2012 Medical Form: INJ, Center Dosing Weight 100, kg, PRN, PRN Blood Glucose Results, Start date: 11/16/12 18:10:00, Duration: 30 day, Stop date: 12/16/12 18:09:00 glucagon 1 mg, Route: IM, IM No Longer Markus [facility] Drug form: Active 2012 Medical PDR/INJ, PRN, Center Dosing Weight 100, kg, PRN Blood Glucose Results, Start date: 11/16/12 18:10:00, Duration: 30 day, Stop date: 12/16/12 18:09:00 [place] 5/325 1 tab, Route: PO No Longer Markus [facility] oral tablet PO, Drug Form: Active 2012 Medical TAB, Dosing Center Weight 100, kg, Q6H, PRN as needed for pain, Start date: 11/16/12 18:07:00, Duration: 30 day, Stop date: 12/16/12 18:06:00 tramadol 50 mg 50 mg, 1 tab, PO No Longer Markus [facility] oral tablet Route: PO, Drug Active 2012 Medical form: TAB, Q4H, Center Dosing Weight 100, kg, PRN as needed for pain, Start date: 11/16/12 18:01:00, Duration: 30 day, Stop date: 12/16/12 18:00:00 promethazine 25 mg, 1 tab, PO No Longer [place] [facility] Route: PO, Drug Active 2012 Medical form: TAB, Q4H, Center Dosing Weight 100, kg, PRN as needed for nausea/vomiting, Start date: 11/16/12 18:01:00, Duration: 30 day, Stop date: 12/16/12 18:00:00 ondansetron 8 mg, 2 tab, PO No Longer [place] [facility] Route: PO, Drug Active 2012 Medical form: TABDIS, Center Q8H, Dosing Weight 100, kg, PRN Nausea & Vomiting, Start date: 11/16/12 18:01:00, Stop date: 12/16/12 18:00:00, nauea ondansetron 8 8 mg, 1 tab, PO, PO Active [place] [facility] mg oral tablet, Q8H, PRN, 2012 Medical disintegrating Dissolve under Center tongue, 10 tab, as needed for nausea/vomiting, Substitution AllowedDissolve under tongue Effient 10 mg 10 mg, 1 tab, PO Active Fei oral tablet PO, Daily, 30 2012 Medical tab, Center Substitution Allowed, TAB tramadol 50 mg 50 mg, 1 tab, PO Active [place] Fei oral tablet PO, Q4H, PRN, 60 2012 Medical tab, for pain, Center Substitution Allowed, TAB clonazepam 0.5 0.5 mg, 1 tab, PO Active [place] Fei mg oral tablet PO, TID, 2012 Medical Substitution Center Allowed, TAB Reglan 10 mg, Route: IVP No Longer Rehrer Fei IVP, ONCE, Active 2012 Medical Dosing Weight Center 100, kg, Priority: STAT, Start date: 11/16/12 16:16:00, Stop date: 11/16/12 16:16:00 magnesium 1 gm, 2 mL, IV No Longer Rehrer Fei sulfate Route: IV, Drug Active 2012 Medical form: INJ, ONCE, Center Dosing Weight 100, kg, Priority: STAT, Start date: 11/16/12 15:50:00, Stop date: 11/16/12 15:50:00 Omnipaque 100 mL, Route: IVP No Longer Rehrer Fei 350mg/ml IVP, Drug Form: Active 2012 Medical SOLN, Dosing Center Weight 100, kg, ONCALL, STAT, Start date: 11/16/12 15:35:00, Duration: 1 doses or times, Dose=2.2ml/kg, Max [id number]=[id number] -- "To be infused by Radiology Staff ONLY"Dose=2.2ml/ kg, Max doak=[id number] -- "To be infused by Radiology Staff [...] No Longer Rehrer [place] sulfate IVPB, Drug form: Active 2012 Medical INJ, ONCE, Center Dosing Weight 100, kg, Start date: 11/16/12 14:51:00, Stop date: 11/16/12 14:51:00 Ativan 1 mg, 0.5 mL, IVP No Longer Delmar Fei Route: IVP, Drug Active 2012 Medical form: INJ, ONCE, Center Dosing Weight 100, kg, Priority: STAT, Start date: 11/16/12 13:55:00, Stop date: 11/16/12 13:55:00 morphine 4 mg, 1 mL, IVP No Longer Rehrer [place] Sulfate Route: IVP, Drug Active 2012 Medical form: INJ, ONCE, Center Dosing Weight 100, kg, Priority: STAT, Start date: 11/16/12 13:40:00, Stop date: 11/16/12 13:40:00 nitroglycerin 0.4 mg, 1 tab, SL No Longer Rehrer [place] 0.4 mg Route: SL, Drug Active 2012 Medical sublingual form: TAB, ONCE, Center tablet Dosing Weight 100, kg, Start date: 11/16/12 13:30:00, Stop date: 11/16/12 13:30:00 aspirin 324 mg, 4 tab, CHEW No Longer Rehrer [facility] Route: CHEW, Active 2012 Medical Drug form: Center CHEWTAB, ONCE, Dosing Weight 100, kg, Priority: STAT, Start date: 11/16/12 13:29:00, Stop date: 11/16/12 13:29:00 Zofran 8 mg, 4 mL, IVP No Longer Rehrer [facility] Route: IVP, Drug Active 2012 Medical form: INJ, ONCE, Center Dosing Weight 100, kg, Priority: STAT, Start date: 11/16/12 13:17:00, Stop date: 11/16/12 13:17:00 Saline Flush 5 mL, Route: IVP No Longer Rehrer [facility] 0.9% IVP, Drug Form: Active 2012 Medical INJ, Dosing Center Weight 100, kg, Q8H, PRN Line Flush, Start date: 11/16/12 13:16:00, Duration: 30 day, Stop date: 12/16/12 13:15:00, Administer at least once every 8 hoursAdminister at least once every 8 hours Reglan 10 mg 10 mg, 1 tab, PO Active [facility] oral tablet PO, TID-Before 2012 Medical Meals, PRN, 42 Center tab, nausea, Substitution Allowed, TAB [place] 5/325 1 tab, PO, Q6H, PO Active [facility] 11/14[facility] oral tablet PRN, 10 tab, 2013 Medical Pain, Center Substitution Allowed, Maintenance, TAB ondansetron 8 8 mg, 1 tab, PO, PO Active [facility] 11/14[facility] mg oral tablet, Q8H, PRN, 60 2012 Medical disintegrating tab, 1, 1, Center Nausea, Substitution Allowed, TABDIS insulin detemir 12 unit, 0.12 SUB-Q Active [facility] 100 units/mL mL, SUB-Q, 2012 Medical subcutaneous Bedtime, 4 mL, Center solution Substitution Allowed, INJ insulin detemir 15 unit, 0.15 SUB-Q Active [facility] 11/14[facility] 100 units/mL mL, SUB-Q, 2012 Medical subcutaneous Daily, 5 mL, [place] solution Substitution Allowed, INJ Zofran 4 mg, 1 tab, PO No Longer [facility] Fei Route: PO, Drug Active 2012 Medical form: TAB, Q8H, Center Dosing Weight 100, kg, Start date: 11/14/12 16:00:00, Duration: 30 day, Stop date: 12/14/12 8:00:00 Reglan 10 mg 10 mg, 1 tab, PO No Longer [facility] oral tablet Route: PO, Drug Active 2012 Medical form: TAB, Center TID-Before Meals, Dosing Weight 100, kg, Start date: 11/14/12 11:30:00, Duration: 30 day, Stop date: 12/14/12 7:30:00 calcium 2,000 mg, 20 mL, IVPB No Longer Rose Fei gluconate + Route: IVPB, Active 2012 Medical Sodium Chloride Drug form: INJ, [place] 0.9% IV 100 mL Q2H, Dosing Weight 100, kg, Total [id number] mg, Start date: 11/14/12 8:00:00, Duration: 2 doses or times, Stop date: 11/14/12 10:00:00 magnesium 2 gm, 50 mL, IVPB No Longer [facility] sulfate Route: IVPB, Active 2012 Medical [...] 20 mEq, 100 mL, IVPB No Longer [facility] Fei chloride Route: IVPB, Active 2012 Medical Drug form: INJ, Center ONCE, Dosing Weight 100, kg, Total dose=20mEq, Start date: 11/13/12 7:58:00, Duration: 1 doses or times, Stop date: 11/13/12 7:58:00, For K=3.5 - 3.9 mEq/LFor K=3.5 - 3.9 mEq/L calcium 1,000 mg, 10 mL, IVPB No Longer [facility] gluconate + Route: IVPB, Active 2012 Medical Sodium Chloride ONCE, Dosing Center 0.9% IV 50 mL Weight 100, kg, Start date: 11/13/12 7:56:00, Stop date: 11/13/12 7:56:00 Reglan 10 mg, 2 mL, IVP No Longer [facility] Route: IVP, Drug Active 2012 Medical form: INJ, Center Before Meals & Bedtime, Dosing Weight 100, kg, Start date: 11/12/12 16:30:00, Duration: 30 day, Stop date: 12/12/12 11:30:00 [place] 5/325 1 tab, Route: PO No Longer [facility] [place] oral tablet PO, Drug Form: Active jaida 2012 Medical TAB, Dosing Center Weight 100, kg, Q6H, PRN Pain, Start date: 11/12/12 16:07:00, Duration: 30 day, Stop date: 12/12/12 16:06:00 Reglan 10 mg, Route: IVP No Longer Aristides [facility] IVP, Q6H, Dosing Active 2012 Medical Weight 100, kg, Center PRN Nausea & Vomiting, Start date: 11/12/12 12:35:00, Duration: 30 day, Stop date: 12/12/12 12:34:00 insulin detemir 15 unit, Route: SUB-Q No Longer Ada [facility] SUB-Q, ONCE, Active 2012 Medical Dosing Weight Center 100, kg, Priority: NOW, Start date: 11/12/12 10:38:00, Stop date: 11/12/12 10:38:00 heparin 7,500 unit, 1.5 SUB-Q No Longer Cardoza [facility] mL, Route: Active 2012 Medical SUB-Q, [...] Chloride 1,000 mL, Rate: IV No Longer [facility] [place] 0.9% (Bolus) IV 1,000 ml/hr, Active 2012 Medical 1,000 mL Infuse over: 1 Center hr, Route: IV, kg, Total Volume: 1,000, Priority: STAT, Start date: 11/10/12 20:17:00, Duration: 1 doses or times, Stop date: 11/10/12 21:16:00, Bolus DoseBolus Dose insulin detemir 10 unit, 0.1 mL, SUB-Q No Longer Anarski [facility] Route: SUB-Q, Active 2012 Medical Drug form: INJ, Center ONCE, Dosing Weight 100, kg, Priority: NOW, Start date: 11/10/12 11:40:00, Stop date: 11/10/12 11:40:00 Zofran ODT 4 mg, 1 tab, PO No Longer Juanjo [place] Route: PO, Drug Active 2012 Medical form: TABDIS, Center Q8H, Dosing Weight 100, kg, PRN Nausea, Start date: 11/10/12 11:04:00, Duration: 30 day, Stop date: 12/10/12 11:03:00 Phenergan 12.5 mg, 0.5 mL, IM No Longer Ahmad [place] Route: IM, Drug 2012 Medical form: INJ, PRN, Center Dosing Weight 100, kg, PRN as needed for nausea/vomiting, Start date: 11/10/12 10:00:00, Duration: 30 day, Stop date: 12/10/12 10:59:00 insulin detemir 16 unit, 0.16 SUB-Q No Longer [place] mL, Route: Active 2012 Medical SUB-Q, Drug Center form: INJ, ONCE, Dosing Weight 100, kg, Start date: 11/10/12 0:20:00, Stop date: 11/10/12 0:20:00 NovoLog 6 unit, 0.06 mL, SUB-Q No Longer Olejarski [facility] Route: SUB-Q, Active 2012 Medical Drug form: SOLN, Center TID-Before Meals, Dosing Weight 100, kg, Start date: 11/09/12 16:30:00, Duration: 30 day, Stop date: 12/09/12 11:30:00 insulin aspart 7 unit, 0.07 mL, SUB-Q No Longer Loida [facility] Route: SUB-Q, Active 2012 Medical Drug form: SOLN, Center ONCE, Dosing Weight 100, kg, Start date: 11/09/12 13:24:00, Stop date: 11/09/12 13:24:00 insulin detemir 20 unit, 0.2 mL, SUB-Q No Longer Juanjo [facility] Route: SUB-Q, Active 2012 Medical Drug form: INJ, Center Daily, Dosing Weight 100, kg, Start date: 11/09/12 9:00:00, Duration: 30 day, Stop date: 12/08/12 9:00:00 morphine 1 mg, 0.5 mL, IV No Longer Chavez [facility] Sulfate Route: IV, Drug Active 2012 Medical form: INJ, ONCE, Center Dosing Weight 100, kg, Start date: 11/09/12 5:28:00, Stop date: 11/09/12 5:28:00 insulin detemir 12 unit, 0.12 SUB-Q No Longer Olejarski [facility] mL, Route: Active 2012 Medical SUB-Q, Drug Center form: INJ, Bedtime, Dosing Weight 100, kg, Start date: 11/08/12 21:00:00, Stop date: 12/07/12 21:00:00 morphine 2 mg, 1 mL, IVP No Longer Quintanilla [facility] Sulfate Route: IVP, Drug Active 2012 Medical form: INJ, ONCE, Center Dosing Weight 100, kg, Start date: 11/08/12 18:34:00, Stop date: 11/08/12 18:34:00 ampicillin + 1,500 mg, Route: IVPB No Longer Raistides [facility] Sodium Chloride IVPB, Drug form: Active 2012 Medical 0.9% IV 100 mL PDR/INJ, [id number], Center Dosing Weight 100, kg, Start date: 11/08/12 18:00:00, Duration: 30 day, Stop date: 12/08/12 12:00:00 ciprofloxacin 500 mg, 1 tab, PO No Longer Mag[place] [facility] Route: PO, Drug Active 2012 Medical form: TAB, Center [id number], Dosing Weight 100, kg, Start date: 11/08/12 17:00:00, Duration: 30 day, Stop date: 12/08/12 5:00:00 Rocephin 1 gm, Route: IVPB No Longer Janet [facility] IVPB, Drug form: Active 2012 Medical PDR/INJ, ONCE, Center Dosing Weight 100, kg, Start date: 11/08/12 13:11:00, Stop date: 11/08/12 13:11:00 insulin aspart 2 unit, 0.02 mL, SUB-Q No Longer Ada [facility] Route: SUB-Q, Active 2012 Medical Drug form: SOLN, Center TID-Before Meals, Dosing Weight 100, kg, PRN Blood Glucose Results, Start date: 11/08/12 10:45:00, Duration: 30 day, Stop date: 12/08/12 10:44:00 insulin aspart 2 unit, 0.02 mL, SUB-Q No Longer Ada [facility] Route: SUB-Q, Active 2012 Medical Drug form: SOLN, Center TID-Before Meals, Dosing Weight 100, kg, PRN Blood Glucose Results, Start date: 11/07/12 18:47:00, Duration: 30 day, Stop date: 12/07/12 18:46:00 magnesium 2 gm, 50 mL, IVPB No Longer [place] [facility] sulfate Route: IVPB, Active 2012 Medical Drug form: INJ, Center Q2H, Dosing Weight 100, kg, Start date: 11/07/12 8:00:00, Duration: 2 doses or times, Stop date: 11/07/12 10:00:00, For Mg=1.5 - 1.7 mg/dLFor Mg=1.5 - 1.7 mg/dL magnesium 2 gm, Route: IVPB No Longer Loida [facility] sulfate IVPB, Drug form: Active 2012 Medical SOLN, ONCE, Center Dosing Weight 100, kg, Start date: 11/07/12 7:42:00, Duration: 1 doses or times, Stop date: 11/07/12 7:42:00, For Mg=1.8 - 2 mg/dLFor Mg=1.8 - 2 mg/dL Protonix 40 mg, Route: IVP No Longer Quintanilla [facility] IVP, Drug form: Active 2012 Medical INJ, Before Center Breakfast, Dosing Weight 100, kg, Start date: 11/07/12 7:30:00, Duration: 30 day, Stop date: 12/06/12 7:30:00 insulin aspart 10 unit, 0.1 mL, SUB-Q No Longer Ahmad Route: SUB-Q, 2012 Medical Drug form: SOLN, Center ONCE, Dosing Weight 100, kg, Start date: 11/06/12 13:32:00, Stop date: 11/06/12 13:32:00 adenosine 84 mg, Route: IVP No Longer Ahmad [facility] IVP, ONCE, Active 2012 Medical Dosing Weight Center 100, kg, Priority: Routine, Start date: 11/06/12 10:20:00, Stop date: 11/06/12 10:20:00 Insulin regular 10 unit, 0.1 mL, SUB-Q No Longer Maggin [facility] Route: SUB-Q, 2012 Medical Drug form: SOLN, Center ONCE, Dosing Weight 100, kg, Start date: 11/06/12 9:47:00, Stop date: 11/06/12 9:47:00 insulin aspart 10 unit, 0.1 mL, SUB-Q No Longer [place] [facility] Route: SUB-Q, 2012 Medical Drug form: SOLN, Center ONCE, Dosing Weight 100, kg, Start date: 11/06/12 9:43:00, Stop date: 11/06/12 9:43:00 Lactated 1,000 mL, Rate: IV No Longer [place] Ringers (Bolus) 1,000 ml/hr, Active 2012 Medical IV 1,000 mL Infuse over: 1 Center hr, Route: IV, kg, Total Volume: 1,000, Bolus Dose, Priority: STAT, Start date: 11/06/12 9:14:00, Duration: 1 doses or times, Stop date: 11/06/12 10:13:00 Insulin regular 9 unit, 0.09 mL, SUB-Q No Longer Ada [facility] Route: SUB-Q, Active 2012 Medical Drug [...] PO, Drug Active 2012 Medical form: ERTAB, [place] Daily, Dosing Weight 100, kg, Start date: 11/06/12 9:00:00, Duration: 30 day, Stop date: 12/05/12 9:00:00 Toprol-XL 100 100 mg, 1 tab, PO No Longer [place] mg oral tablet, Route: PO, Drug Active 2012 Medical extended form: ERTAB, [place] release Daily, Start date: 11/06/12 9:00:00, Duration: [...] Drug Active 2012 Medical coated form: ECTAB, [place] Daily, Dosing Weight 100, kg, Start date: 11/06/12 9:00:00, Duration: 30 day, Stop date: 12/05/12 9:00:00 Cymbalta 60 mg, 2 cap, PO No Longer [place] Fei Route: PO, Drug Active 2012 Medical form: DRC, [place] Daily, Dosing Weight 100, kg, Start date: [...] SUB-Q, Active 2012 Medical Drug form: SOLN, [place] TID-Before Meals, Dosing Weight 100, kg, Start date: 11/06/12 7:30:00, Duration: 30 day, Stop date: 12/05/12 16:30:00 metoclopramide 10 mg, 2 mL, IVP No Longer Aristides [facility] Route: IVP, Drug Active 2012 Medical form: INJ, Q6H, Center Dosing Weight 100, kg, PRN Nausea & Vomiting, Start date: 11/06/12 1:49:00, Duration: 30 day, Stop date: 12/06/12 1:48:00 Benadryl 25 mg, 0.5 mL, IV No Longer Gee [facility] Route: IV, Drug Active 2012 Medical form: INJ, Q4H, Center Dosing Weight 100, kg, PRN as needed for nausea/vomiting, Start date: 11/06/12 1:44:00, Duration: 30 day, Stop date: 12/06/12 1:43:00 Phenergan 12.5 mg, 0.5 mL, IVPB No Longer [place] [facility] Route: IVPB, Active 2012 Medical Drug form: INJ, Center Q6H, Dosing Weight 100, kg, PRN Nausea & Vomiting, Start date: 11/06/12 1:43:00, Stop date: 12/06/12 1:42:00 Benadryl 25 mg, 1 cap, PO No Longer [place] [facility] Route: PO, Drug Active 2012 Medical form: CAP, TID, Center Dosing Weight 100, kg, PRN Nausea, Start date: 11/06/12 0:31:00, Duration: 30 day, Stop date: 12/06/12 0:30:00 labetalol 20 mg, 4 mL, IVP No Longer [place] [facility] Route: IVP, Drug Active 2012 Medical form: INJ, ONCE, Center Dosing Weight 100, kg, Start date: 11/06/12 0:25:00, Stop date: 11/06/12 0:25:00 simvastatin 40 mg, 1 tab, PO No Longer [place] [facility] Route: PO, Drug Active 2012 Medical form: TAB, Center Bedtime, Dosing Weight 100, kg, Start date: 11/05/12 23:00:00, Duration: 30 day, Stop date: 12/05/12 21:00:00 lisinopril 20 mg, 1 tab, PO No Longer [place] [facility] Route: PO, Drug Active 2012 Medical form: TAB, Q12H, Center Dosing Weight 100, kg, Start date: 11/05/12 23:00:00, Duration: 30 day, Stop date: 12/05/12 21:00:00 insulin detemir 20 unit, 0.2 mL, SUB-Q No Longer Olejarski [facility] Route: SUB-Q, Active 2012 Medical Drug form: INJ, Center Q12H, Dosing Weight 100, kg, Start date: 11/05/12 23:00:00, Stop date: 12/05/12 21:00:00 magnesium oxide 400 mg, 1 tab, PO Active [place] 400 mg oral PO, Daily, 2012 Medical tablet tab, Center Substitution Allowed, TAB metoprolol 100 100 mg, 1 tab, PO Active [facility] mg oral tablet, PO, Daily, 2012 Medical extended tab, Center release Substitution Allowed NIFEdipine 90 90 mg, 1 tab, PO Active [facility] mg oral tablet, PO, Daily, 30 2012 Medical extended tab, Center release Substitution Allowed, ERTAB prasugrel 10 mg 10 mg, 1 tab, PO Active [facility] oral tablet PO, Daily, 2012 Medical tab, Center Substitution Allowed, TAB Cymbalta 60 mg, Daily, Active [facility] Substitution 2012 Medical Allowed Center tramadol 50 mg 50 mg, 1 tab, PO No Longer [place] [facility] oral tablet Route: PO, Drug Active 2012 Medical form: TAB, Q4H, Center Dosing Weight 100, kg, PRN For Pain, Start date: 11/05/12 22:39:00, Duration: 30 day, Stop date: 12/05/12 22:38:00 promethazine 25 mg, 1 tab, PO No Longer [place] [facility] Route: PO, Drug Active 2012 Medical form: TAB, Q6H, Center Dosing Weight 100, kg, PRN as needed for nausea/vomiting, Start date: 11/05/12 22:39:00, Duration: 30 day, Stop date: 12/05/12 22:38:00 Phenergan 25 mg, 1 tab, PO No Longer [place] Route: PO, Drug Active 2012 Medical form: TAB, Q4H, Center Dosing Weight 104.545, kg, PRN Nausea & Vomiting, Start date: 11/05/12 22:33:00, Duration: 30 day, Stop date: 12/05/12 22:32:00 Zofran 8 mg, 4 mL, IV No Longer Juanjo Route: IV, Drug Active 2012 Medical form: INJ, Q8H, Center Dosing Weight 104.545, kg, PRN Nausea, Start date: 11/05/12 22:32:00, Duration: 30 day, Stop date: 12/05/12 22:31:00 Saline Flush 5 ml, Route: IVP No Longer [place] 0.9% IVP, Drug Form: 2012 Medical INJ, Dosing Center Weight 104.545, kg, PRN, PRN Line Flush, Start date: 11/05/12 22:14:00, Duration: 30 day, Stop date: 12/05/12 23:13:00 Sodium Chloride 500 mL, Rate: IV No Longer [place] 0.9% (Bolus) IV 2,000 ml/hr, Active 2012 Medical 500 mL Infuse over: 15 Center minutes, Route: IV, kg, Total Volume: 500, Priority: STAT, Start date: 11/05/12 22:14:00, Duration: 1 doses or times, Stop date: 11/05/12 22:28:00 nitroglycerin 0.4 mg, 1 tab, SL No Longer [place] SL Tab Route: SL, Drug 2012 Medical form: TAB, Center Q5Min, Dosing Weight 104.545, kg, PRN Chest Pain, Start date: 11/05/12 22:14:00, Duration: 3 doses or times, Stop date: Limited # of times Phenergan 12.5 mg, Route: IVPB No Longer Dilan [place] IVPB, ONCE, Active 2012 Medical Dosing Weight Center 104.545, kg, Priority: STAT, Start date: 11/05/12 22:05:00, Stop date: 11/05/12 22:05:00 Phenergan 12.5 mg, 0.5 mL, IVPB No Longer Dilan [facility] Route: IVPB, Active 2012 Medical Drug form: INJ, Center ONCE, Dosing Weight 104.545, kg, Priority: STAT, Start date: 11/05/12 21:08:00, Stop date: 11/05/12 21:08:00 carvedilol 12.5 mg, 1 tab, PO No Longer Dilan [facility] Route: PO, Drug Active 2012 Medical form: TAB, ONCE, Center Dosing Weight 104.545, kg, Start date: 11/05/12 19:20:00, Stop date: 11/05/12 19:20:00 Effient 10 mg, 1 tab, PO No Longer Dilan [facility] Route: PO, Drug Active 2012 Medical form: TAB, ONCE, Center Dosing Weight 104.545, kg, Start date: 11/05/12 19:16:00, Stop date: 11/05/12 19:16:00 ondansetron 4 mg, 2 mL, IVP No Longer Dilan [facility] Route: IVP, Drug Active 2012 Medical form: INJ, ONCE, Center Dosing Weight 104.545, kg, Priority: STAT, Start date: 11/05/12 19:14:00, Stop date: 11/05/12 19:14:00 aspirin 324 mg, 4 tab, PO No Longer Dilan [facility] Route: PO, Drug Active 2012 Medical form: CHEWTAB, Center ONCE, Dosing Weight 104.545, kg, Priority: STAT, Start date: 11/05/12 19:14:00, Stop date: 11/05/12 19:14:00 Saline Flush 5 mL, Route: IVP No Longer Dilan [facility] 0.9% IVP, Drug Form: Active 2012 [...] 16 unit, 0.16 SUB-Q No Longer Fitzpatrick [facility] mL, Route: Active 2012 Medical SUB-Q, Drug Center form: INJ, Q12H, Dosing Weight 78.2, kg, Start date: 10/31/12 21:00:00, Duration: 30 day, Stop date: 11/30/12 9:00:00 insulin aspart 4 unit, 0.04 mL, SUB-Q Active [facility] 100 units/mL SUB-Q, 2012 Medical subcutaneous TID-Before Center solution Meals, 1 vial, 2, 2, Substitution Allowed, SOLN insulin detemir 16 unit, 0.16 SUB-Q Active [facility] 100 units/mL mL, SUB-Q, Q12H, 2012 Medical subcutaneous 1 vial, 2, 2, Center solution Substitution Allowed, INJ tramadol 50 mg 50 mg, 1 tab, PO Active [place] oral tablet PO, Q4H, PRN, 30 2012 Medical tab, as needed Center for pain, Substitution Allowed, TAB simvastatin 40 40 mg, 1 tab, PO Active [place] mg oral tablet PO, Bedtime, 30 2012 Medical tab, 1, 1, Center Substitution Allowed, Maintenance, TAB promethazine 25 25 mg, 1 tab, PO Active Gee [place] mg oral tablet PO, Q6H, PRN, 60 2012 Medical tab, 1, 1, Center Nausea & Vomiting, Substitution Allowed, TAB prasugrel 10 mg 10 mg, 1 tab, PO Active Gee [place] oral tablet PO, Daily, 30 2012 Medical tab, 1, 1, Center Substitution Allowed, TAB ondansetron 8 8 mg, 1 tab, PO, PO Active [place] 10/31/ [place] mg oral tablet, Q8H, PRN, 60 2012 Medical disintegrating tab, 1, 1, Center Nausea, Substitution Allowed, TABDIS NIFEdipine 90 90 mg, 1 tab, PO Active [place] 10/31/ [place] mg oral tablet, PO, Daily, 30 2012 Medical extended tab, 1, 1, Center release Substitution Allowed, ERTAB Toprol-XL 100 100 mg, 1 tab, PO Active [place] 10/31/ [place] mg oral tablet, PO, Daily, 30 2012 Medical extended tab, 1, 1, Center release Substitution Allowed, ERTAB magnesium oxide 400 mg, 1 tab, PO Active [place] 400 mg oral PO, Daily, 30 2012 Medical tablet tab, 1, 1, Center Substitution Allowed, TAB lisinopril 20 20 mg, 1 tab, PO Active [place] [place] [facility] mg oral tablet PO, Q12H, 60 2012 Medical tab, 1, 1, Center Substitution Allowed, TAB aspirin 81 mg 81 mg, 1 tab, PO Active [place] [facility] tablet, enteric PO, Daily, 30 2012 Medical coated tab, 1, 1, Center Substitution Allowed, ECTAB insulin aspart 6 unit, 0.06 mL, SUB-Q No Longer Manlapaz Fei Route: SUB-Q, Active 2012 Medical Drug form: Burak MARRUFO TID-Before Meals, Dosing Weight 78.2, kg, PRN [...] mEq, 15 mL, PO No Longer Steward [place] chloride Route: PO, Drug Active 2012 Medical form: LIQ, ONCE, Center Dosing Weight 78.2, kg, Start date: 10/30/12 7:44:00, Stop date: 10/30/12 7:44:00 Haldol 2 mg, 0.4 mL, IV No Longer Funez Kamel [facility] Route: IV, Drug Active 2012 Medical form: INJ, ONCE, Center Dosing Weight 78.2, kg, Start date: 10/30/12 5:42:00, Stop date: 10/30/12 5:42:00 tramadol 50 mg 50 mg, 1 tab, PO No Longer [place] [facility] oral tablet Route: PO, Drug 2012 Medical form: TAB, Q4H, Center Dosing Weight 78.2, kg, PRN as needed for pain, Start date: 10/29/12 9:45:00, Duration: 30 day, Stop date: 11/28/12 9:44:00 Toradol 15 15 mg, 0.5 mL, IV No Longer [place] [facility] mg/mL Route: IV, Drug 2012 Medical injectable form: INJ, ONCE, Center solution Dosing Weight 78.2, kg, Start date: 10/29/12 6:54:00, Stop date: 10/29/12 6:54:00 Toradol 15 15 mg, 0.5 mL, IV No Longer [place] [facility] mg/mL Route: IV, Drug Active 2012 Medical injectable form: INJ, ONCE, Center solution Dosing Weight 78.2, kg, Start date: 10/29/12 1:07:00, Stop date: 10/29/12 1:07:00 insulin detemir 20 unit, 0.2 mL, SUB-Q No Longer Amari [facility] Route: SUB-Q, Active 2012 Medical Drug [...] labetalol 20 mg, Route: IVP No Longer [place] 02/22[facility] IVP, Drug form: Active 2012 Medical INJ, ONCE, Center Dosing Weight 78.2, kg, Start date: 10/27/12 19:28:00, Stop date: 10/27/12 19:28:00 labetalol 20 mg, 4 mL, IVP No Longer Ketchum [facility] Route: IVP, Drug Active 2012 Medical form: INJ, ONCE, Center Dosing Weight 78.2, kg, Start date: 10/27/12 17:28:00, Stop date: 10/27/12 17:28:00 Benadryl 25 mg, 1 cap, PO No Longer Ketchum [facility] Route: PO, Drug Active 2012 Medical form: CAP, ONCE, Center Dosing Weight 78.2, kg, Start date: 10/27/12 17:28:00, Stop date: 10/27/12 17:28:00 Reglan 10 mg 10 mg, Route: PO No Longer Ketchum [facility] oral tablet PO, Drug form: Active 2012 Medical TAB, Before Center Meals & Bedtime, Dosing Weight 78.2, kg, Start date: 10/27/12 16:30:00, Duration: 30 day, Stop date: 11/26/12 11:30:00 Reglan 5 mg, 1 mL, IV No Longer [place] [facility] Route: IV, Drug Active 2012 Medical form: INJ, Q8H, Center Dosing Weight 78.2, kg, Start date: 10/27/12 16:00:00, Duration: 30 day, Stop date: 11/26/12 8:00:00 Reglan 5 mg, 1 mL, IV No Longer [place] [facility] Route: IV, Drug Active 2012 Medical form: INJ, Q8H, Center Dosing Weight 78.2, kg, PRN Nausea, Start date: 10/27/12 13:08:00, Duration: 30 day, Stop date: 11/26/12 13:07:00 lisinopril 20 mg, 1 tab, PO No Longer [place] [facility] Route: PO, Drug Active 2012 Medical form: TAB, Q12H, Center Dosing Weight 78.2, kg, Start date: 10/27/12 10:00:00, Duration: 30 day, Stop date: 11/26/12 9:00:00 ergocalciferol 50,000 IntlUnit, PO No Longer Manlapaz [place] 1 cap, Route: Active 2012 Medical PO, Drug form: Center CAP, Daily, Dosing Weight 78.2, kg, Start date: 10/27/12 9:00:00, Duration: 4 day, Stop date: 10/30/12 9:00:00 magnesium oxide 400 mg, 1 tab, PO No Longer Gee [place] Route: PO, Drug Active 2012 Medical form: TAB, Center Daily, Dosing Weight 78.2, kg, Start date: 10/27/12 9:00:00, Duration: 30 day, Stop date: 11/25/12 9:00:00 Toprol-XL 100 100 mg, 1 tab, PO No Longer [place] mg oral tablet, Route: PO, Drug Active 2012 Medical extended form: ERTAB, [place] release Daily, Start date: 10/27/12 9:00:00, Duration: 30 day, Stop date: 11/25/12 9:00:00 insulin aspart 7 unit, Route: SUB-Q No Longer Manlapaz [facility] SUB-Q, Drug Active 2012 Medical form: NIRU [place] TID-Before Meals, Dosing Weight 78.2, kg, Start date: 10/26/12 12:00:00, Duration: 30 day, Stop date: 11/25/12 11:30:00 Insulin regular 10 unit, 0.1 mL, SUB-Q No Longer Steward [facility] Route: SUB-Q, Active 2012 Medical Drug form: NIRU [place] ONCE, Dosing Weight 78.2, kg, Start date: 10/26/12 10:32:00, Stop date: 10/26/12 10:32:00 NIFEdipine 90 mg, 1 tab, PO No Longer Dalton [facility] extended Route: PO, Drug Active 2012 Medical release form: ERTAB, [place] Daily, Dosing Weight 78.2, kg, Start date: 10/26/12 9:00:00, Duration: 30 day, Stop date: 11/24/12 9:00:00 metoprolol 25 mg, 1 tab, PO No Longer [place] [facility] tartrate Route: PO, Drug Active 2012 Medical form: TAB, Q12H, Center Dosing Weight 78.2, kg, Start date: 10/26/12 9:00:00, Duration: 30 day, Stop date: 11/24/12 21:00:00 Reglan 10 mg, 1 tab, PO No Longer [place] Fei Route: PO, Drug Active 2012 Medical form: TAB, Center Before Meals & Bedtime, Dosing Weight 78.2, kg, Start date: 10/25/12 16:30:00, Duration: 30 day, Stop date: 11/24/12 11:30:00 potassium 20 mEq, 100 mL, IVPB No Longer Dalton Fei chloride Route: IVPB, Active 2012 Medical [...] mEq, 2 tab, PO No Longer Dalton Fei chloride 20 mEq Route: PO, Drug Active 2012 Medical oral tablet, form: ERTAB, [place] extended ONCE, Dosing release Weight 78.2, kg, Start date: 10/25/12 14:50:00, Stop date: 10/25/12 14:50:00 Procardia XL 30 mg, 1 tab, PO No Longer Dalton Fei Route: PO, Drug Active 2012 Medical form: ERTAB, Center ONCE, Dosing Weight 78.2, kg, Start date: 10/25/12 14:49:00, Stop date: 10/25/12 14:49:00 1/2 NS 1,000 mL 1,000 mL, Rate: IV No Longer [place] Fei 100 ml/hr, Active 2012 Medical Infuse over: 10 Center hr, Route: IV, kg, Total Volume: 1,000, Start date: 10/25/12 13:52:00, Duration: 30 day, Stop date: 11/24/12 13:51:00 atenolol 100 mg, 1 tab, PO No Longer [place] [facility] Route: PO, Drug Active 2012 Medical form: TAB, Center Daily, Dosing Weight 78.2, kg, Start date: 10/25/12 9:00:00, Duration: 30 day, Stop date: 11/23/12 9:00:00 Protonix 40 mg, Route: IVP No Longer Carpenter [facility] IVP, Drug form: Active 2012 Medical INJ, Daily, Center Dosing Weight 78.2, kg, Start date: 10/25/12 9:00:00, Duration: 30 day, Stop date: 11/23/12 9:00:00 NovoLog FlexPen 6 unit, 0.06 mL, SUB-Q No Longer Amari [facility] Route: SUB-Q, 2012 Medical Drug form: SOLN, Center TID-Before Meals, Start date: 10/25/12 7:30:00, Duration: 30 day, Stop date: 11/23/12 16:30:00 insulin lispro 6 unit, Route: SUB-Q No Longer Funez [facility] SUB-Q, 2012 Medical TID-Before Center Meals, Dosing Weight 78.2, kg, Start date: 10/25/12 7:30:00, Duration: 30 day, Stop date: 11/23/12 16:30:00 Lactated 1,000 mL, Rate: IV [facility] Ringers IV 250 ml/hr, Active 2012 Medical 1,000 mL Infuse over: 4 Center hr, Route: IV, kg, Total Volume: 1,000, Start date: 10/25/12 5:50:00, Duration: 30 day, Stop date: 11/24/12 5:49:00 Lactated 1,000 mL, Rate: IV [facility] Long[facility] Ring[place] (Bolus) 100 ml/hr, Active 2012 Medical IV 1,000 mL Infuse over: 10 Center hr, Route: IV, kg, Total Volume: 1,000, Start date: 10/25/12 5:50:00, Duration: 1 doses or times, Stop date: 10/25/12 15:49:00 insulin aspart 9 unit, 0.09 mL, SUB-Q No Longer Manlapaz [facility] Route: SUB-Q, Active 2012 Medical Drug form: SOLN, Center TID-Before Meals, Dosing Weight 78.2, kg, PRN Blood Glucose Results, Start date: 10/25/12 3:53:00, Duration: 30 day, Stop date: 11/24/12 3:52:00 glucagon 1 mg, Route: IM, IM No Longer Funez [facility] Drug form: Active 2012 Medical PDR/INJ, PRN, Center Dosing Weight 78.2, kg, PRN Blood Glucose Results, Start date: 10/25/12 3:53:00, Duration: 30 day, Stop date: 11/24/12 4:52:00 Dextrose 50% 12.5 gm, 25 mL, IVP No Longer Funez [facility] 10/25[facility] Syringe Route: IVP, Drug Active 2012 Medical Form: INJ, Center Dosing Weight 78.2, kg, PRN, PRN Blood Glucose Results, Start date: 10/25/12 3:53:00, Duration: 30 day, Stop date: 11/24/12 4:52:00 Dextrose 50% 25 mL, Route: IVP No Longer Funez [facility] 10/25[facility] Syringe IVP, Dosing Active 2012 Medical Weight 78.2, kg, Center PRN, PRN Blood Glucose Results, Start date: 10/25/12 3:52:00, Duration: 30 day, Stop date: 11/24/12 4:51:00 glucagon 1 mg, Route: IM, IM No Longer Funez [facility] 10/25[facility] PRN, Dosing Active 2012 Medical Weight 78.2, kg, Center PRN Blood Glucose Results, Start date: 10/25/12 3:52:00, Duration: 30 day, Stop date: 11/24/12 4:51:00 Neutra-Phos 2 pkt, Route: PO No Longer Neeru [facility] PO, Drug Form: Active 2012 Medical [...] Neutra-Phos 2 pkt, Route: PO No Longer Dee Dee Jon Fei PO, Drug Form: Active 2012 Medical PDR/REC, Dosing Center Weight 78.2, kg, ONCE, Start date: 10/24/12 20:35:00, Stop date: 10/24/12 20:35:00 potassium 20 mEq, 100 mL, IVPB No Longer Funez Danay [facility] chloride Route: IVPB, Active 2012 Medical Drug [...] No Longer Dalton Fei Sulfate Route: IVP, Drug Active 2012 [...] 1 tab, PO No Longer Funez Danay Fei tartrate Route: PO, Drug Active 2012 Medical form: TAB, Q8H, Center Dosing Weight 78.2, kg, Start date: 10/24/12 16:00:00, Duration: 30 day, Stop date: 11/23/12 8:00:00 clonazepam 0.5 mg, 1 tab, PO [facility] Longer [facility] Route: PO, Drug Active 2012 Medical form: TAB, ONCE, Center Dosing Weight 78.2, kg, Start date: 10/24/12 15:03:00, Stop date: 10/24/12 15:03:00 NIFEdipine 60 mg, 1 tab, PO No Longer Dalton [facility] extended Route: PO, Drug Active 2012 Medical release form: ERTAB, Center Daily, Dosing Weight 78.2, kg, Start date: 10/24/12 14:32:00, Duration: 30 day, Stop date: 11/23/12 9:00:00 Saline Flush 10 mL, Route: IVP No Longer Amrtínez Fei 0.9% IVP, Drug Form: Active 2012 [...] mL, Rate: IV No Longer [facility] [place] (Bolus) 100 ml/hr, Active 2012 Medical IV 1,000 mL Infuse over: 10 Center hr, Route: IV, kg, Total Volume: 1,000, Start date: 10/24/12 12:24:00, Duration: 30 day, Stop date: 11/23/12 12:23:00 lisinopril 40 mg, 2 tab, PO No Longer Gee Fei Route: PO, Drug Active 2012 Medical [...] No Longer Dee Dee Jon Fei [place] 150 ml/hr, Active 2012 Medical Injection IV Infuse over: 6.7 Center 1,000 mL hr, Route: IV, kg, Total Volume: 1,000, Start date: 10/24/12 11:50:00, Duration: 30 day, Stop date: 11/23/12 11:49:00 lisinopril 20 mg, 1 tab, PO No Longer [facility] Route: PO, Drug Active 2012 [...] mg, 1 tab, PO No Longer [facility] Route: PO, Drug Active 2012 Medical form: TAB, Center Daily, Dosing Weight 78.2, kg, Priority: NOW, Start date: 10/24/12 10:53:00, Duration: 30 day, Stop date: 11/23/12 9:00:00 potassium 40 mEq, 2 tab, PO [facility] Longer [facility] chloride Route: PO, Drug Active 2012 [...] 24 hr aspirin 200 mg, 1 supp, SD No Longer Orozco Fei Route: SD, Drug Active 2012 Medical form: SUPP, Center [...] 4,000 unit, 4 IV No Longer [place] mL, Route: IV, Active 2012 Medical Drug [...] Tanikella Fei infusion (ACS mL, Rate: Start 2012 Medical Protocol) at 12 Center heparin [...] Duration: 1 doses or times, Dose=2.2ml/kg, Max [id number] -- "To be infused by Radiology Staff ONLY"Dose=2.2ml/ kg, Max [id number] -- "To be infused by Radiology Staff [...] IV No Longer Dee Dee Jon [place] mL 200 ml/hr, 2012 Medical Infuse over: 5 Center hr, Route: IV, kg, Total Volume: 1,000, Start date: 10/23/12 14:21:00, Stop date: 11/22/12 14:20:00 Omnipaque 130 mL, Route: IVP No Longer [place] Fei 350mg/ml IVP, Drug Form: Active 2012 Medical SOLN, Dosing Center Weight 113.636, kg, ONCALL, STAT, Start date: 10/23/12 10:42:00, Duration: 1 doses or times, Dose=2.2ml/kg, Max [id number] -- "To be infused by Radiology Staff ONLY"Dose=2.2ml/ kg, Max [id number] -- "To be infused by Radiology Staff ONLY" Insulin 100 mL, Rate: IV No Longer [place] Fei (regular) 0.1units/kg/hour Active 2012 Medical Titrate [...] Kristy Fei + Vitamin B1 Start date: 2012 Medical 100 mg + M.V.I. 10/23/12 Center Adult 10 mL + 9:00:00, potassium Duration: 3 day, chloride 20 mEq Stop date: + Dextrose 5% 10/25/12 9:00:00 Sodium Chloride 1,000 mL, Rate: IV No Longer Isaac [facility] 0.9% IV 1,000 100 ml/hr, Active 2012 Medical mL + M.V.I.-12 Infuse over: Center 10 mL Daily + 10.1 hr, Route: folic acid IV 1 IV, kg, Total mg Daily + Volume: 1,011.2, thiamine IV 1 Start date: 10/23/12 8:41:00, Duration: 3 day, Stop date: 10/26/12 8:40:00 Insulin regular 100 mL, Rate: IVPB No Longer Isaac [facility] 100 unit + Start Insulin Active [...] gm, 50 mL, IVP No Longer Isaac [place] Syringe Route: IVP, Drug Active 2012 Medical Form: INJ, Center Dosing Weight 113.636, kg, PRN, PRN Blood Glucose Results, Start date: 10/23/12 8:17:00, Duration: 30 day, Stop date: 11/22/12 9:16:00 normal saline 1,000 mL, Rate: IV No Longer Isaac [place] 0.9% IV 1,000 150 ml/hr, Active 2012 Medical mL Infuse over: 6.7 Center hr, Route: IV, kg, Total Volume: 1,000, Start date: 10/23/12 5:07:00, Duration: 30 day, Stop date: 11/22/12 5:06:00 NS (Bolus) IV 1,000 mL, 0 IV No Longer Kristy [facility] ml/hr, Route: Active 2012 Medical IV, Drug Form: Center INJ, Dosing Weight 113.636, kg, ONCE, STAT, Start date: 10/23/12 5:06:00, Duration: 1 doses or times, Stop date: 10/23/12 5:06:00 hydrALAZINE 10 mg, 0.5 mL, IV No Longer Funez Kamel [facility] Route: IV, Drug Active 2012 Medical form: INJ, Q4H, Center Dosing Weight 113.636, kg, PRN Other -See Comment, Start date: 10/23/12 0:38:00, Duration: 30 day, Stop date: 11/22/12 0:37:00, hypertesnion acetaminophen 650 mg, 1 supp, SD No Longer Kristy [place] Route: SD, Drug Active 2012 Medical form: SUPP, Q6H, Center Dosing Weight 113.636, kg, PRN Fever, Start date: 10/23/12 0:37:00, Duration: 30 day, Stop date: 11/22/12 0:36:00 Dilaudid 0.5 mg, 0.25 mL, IV No Longer Dalton [place] Route: IV, Drug Active 2012 Medical form: INJ, Q2H, Center Dosing Weight 113.636, kg, PRN Pain, Start date: 10/23/12 0:37:00, Duration: 30 day, Stop date: 11/22/12 0:36:00 metoprolol 5 5 mg, 5 mL, IVP No Longer Funez [facility] mg/5 ml INJ Route: IVP, Drug Active 2012 Medical form: INJ, Q3H, Center Dosing Weight 113.636, kg, PRN Hypertension, Start date: 10/23/12 0:35:00, Duration: 30 day, Stop date: 11/22/12 0:34:00 Insulin regular 2 unit, 0.02 mL, SUB-Q No Longer Isaac [facility] Route: SUB-Q, Active 2012 Medical Drug form: SOLN, Center Sliding Scale, Dosing Weight 113.636, kg, PRN Blood Glucose Results, Start date: 10/23/12 0:26:00, Duration: 30 day, Stop date: 11/22/12 1:25:00 glucagon 1 mg, Route: IM, IM No Longer Isaac [place] Drug form: Active 2012 Medical PDR/INJ, PRN, Center Dosing Weight 113.636, kg, PRN Blood Glucose Results, Start date: 10/23/12 0:26:00, Duration: 30 day, Stop date: 11/22/12 1:25:00 Dextrose 50% 25 gm, 50 mL, IVP No Longer Isaac [place] Syringe Route: IVP, Drug Active 2012 Medical [...] heparin 5,000 unit, SUB-Q No Longer Brian [place] Route: SUB-Q, Active 2012 Medical Q8H, Dosing Center Weight 113.636, kg, Start date: 10/23/12 0:00:00, Duration: 30 day, Stop date: 11/21/12 16:00:00 carvedilol 25 Daily, No Longer [place] mg oral tablet Substitution Active 2012 Medical Allowed Center Diovan HCT 160 1 tab, PO, PO No Longer [place] mg-12.5 mg oral Daily, 30 tab, Active 2012 Medical tablet Substitution Center Allowed, Maintenance, TAB D5W 1/2NS + KCL 1,000 mL, Rate: IV No Longer Isaac Fei 20mEq/L 1000ml 150 ml/hr, Active 2012 Medical [...] Duration: 7 day, Stop date: 10/14/12 9:00:00 [place] 325 mg-10 15 mL, Route: PO No Longer Sushila Fei mg / 15 mL oral PO, Drug Form: Active 2012 Medical solution SOLN, Dosing Center Weight 118.2, kg, Q4H, PRN For Pain, Start date: 10/07/12 14:22:00, Duration: 30 day, Stop date: 11/06/12 14:21:00 Diovan 160 mg, 1 tab, PO No Longer Sushila [facility] Route: PO, Drug Active 2012 Medical form: TAB, Center Daily, Dosing Weight 118.2, kg, Start date: 10/07/12 14:00:00, Duration: 30 day, Stop date: 11/06/12 9:00:00 Coreg 25 mg, 1 tab, PO No Longer Sushila [facility] Route: PO, Drug Active 2012 Medical form: TAB, Q12H, Center Dosing Weight 118.2, kg, Start date: 10/07/12 14:00:00, Duration: 30 day, Stop date: 11/06/12 9:00:00 potassium 20 mEq, 100 mL, IVPB No Longer Bagshahi [facility] chloride Route: IVPB, Active 2012 Medical Drug form: INJ, Center ONCE, Dosing Weight 118.2, kg, Total dose=20 mEq, Start date: 10/07/12 7:53:00, Duration: 1 doses or times, Stop date: 10/07/12 7:53:00, For K=3.5 - 3.9 mEq/LFor K=3.5 - 3.9 mEq/L Blistex 1 appl, Route: TOP No Longer [facility] Fei TOP, PRN, Drug Active 2012 Medical form: STIC PRN Center Other -See Comment, Start date: 10/06/12 22:48:00, Duration: 30 day, Stop date: 11/05/12 22:47:00 Blistex Lip Route: TOP, TOP No Longer [facility] Fei [place] Dosing Weight Active 2012 Medical 118.2, kg, PRN, Center PRN, Start date: 10/06/12 22:46:00, Duration: 30 day, Stop date: 11/05/12 22:45:00, prn Dilaudid 0.2 mg, 0.1 mL, IV No Longer Sushila [facility] Route: IV, Drug Active 2012 Medical form: INJ, Q4H, Center Dosing Weight 118.2, kg, PRN Pain, Start date: 10/06/12 14:47:00, Duration: 30 day, Stop date: 11/05/12 14:46:00 Zofran 4 mg, 2 mL, IV No Longer Low [place] Route: IV, Drug Active 2012 Medical form: INJ, Q4H, Center Dosing Weight 118.2, kg, PRN Nausea, Start date: 10/06/12 14:47:00, Duration: 30 day, Stop date: 11/05/12 14:46:00 metoprolol 5 5 mg, 5 mL, IVP No Longer Sushila [place] mg/5 ml INJ Route: IVP, Drug Active 2012 Medical form: INJ, Q6H, Center Dosing Weight 118.2, kg, Start date: 10/06/12 12:00:00, Duration: 30 day, Stop date: 11/05/12 6:00:00 magnesium 2 gm, 50 mL, IVPB No Longer Low [place] sulfate Route: IVPB, Active 2012 Medical Drug form: INJ, Center Q2H, Dosing Weight 118.2, kg, Total dose=4 gm, Start date: 10/06/12 12:00:00, Duration: 2 doses or times, Stop date: 10/06/12 14:00:00 dexamethasone 4 mg, 1 mL, IV No Longer Sushila [place] Route: IV, Drug Active 2012 Medical form: INJ, ONCE, Center Start date: 10/06/12 9:00:00, Stop date: 10/06/12 9:00:00 acetaminophen-h 30 mL, Route: PO No Longer Sushila [place] ydrocodone 325 PO, Drug Form: 2012 Medical mg-10 mg/15 mL SOLN, Q4H, PRN Center oral solution Pain, Start date: 10/06/12 7:33:00, Duration: 30 day, Stop date: 11/05/12 7:32:00 morphine 2 mg, 1 mL, IVP No Longer Low [place] Sulfate Route: IVP, Drug Active 2012 Medical form: INJ, Q2H, Center Dosing Weight 118.2, kg, PRN Pain, Start date: 10/05/12 23:45:00, Duration: 30 day, Stop date: 11/04/12 23:44:00 Levemir FlexPen 20 unit, 0.2 mL, SUB-Q No Longer Sushila [facility] Route: SUB-Q, Active 2012 Medical Drug form: INJ, Center Q12H, Start date: 10/05/12 21:00:00, Duration: 30 day, Stop date: 11/04/12 9:00:00 carvedilol 25 mg, 1 tab, PO No Longer Sushila Fei Route: PO, Drug Active 2012 Medical form: TAB, Q12H, Center Dosing Weight 118.2, kg, Start date: 10/04/12 21:00:00, Duration: 30 day, Stop date: 11/03/12 9:00:00 [place] 325 mg-10 30 mL, Route: PO No [...] mg, 2 mL, IVP No Longer Low [facility] Route: IVP, Drug Active 2012 Medical form: INJ, Q4H, Center PRN Elevated BP, Start date: 10/04/12 9:05:00, Duration: 30 day, Stop date: 11/03/12 9:04:00 hydrALAZINE 20 mg, 1 mL, IVP No Longer Low [facility] Route: IVP, Drug Active 2012 Medical [...] regular 12 unit, 0.12 SUB-Q No Longer [place] Fei mL, Route: Active 2012 Medical SUB-Q, Drug Center form: SOLN, Sliding Scale, Dosing Weight 118.2, kg, PRN Blood Glucose Results, Start date: 10/04/12 0:40:00, Duration: 30 day, Stop date: 11/03/12 0:39:00 Dextrose 50% 25 gm, 50 mL, IVP No Longer [place] Fei Syringe Route: IVP, Drug Active 2012 Medical Form: INJ, Center Dosing Weight 118.2, kg, PRN, PRN Blood Glucose Results, Start date: 10/04/12 0:40:00, Duration: 30 day, Stop date: 11/03/12 0:39:00 glucagon 1 mg, Route: IM, IM No Longer [facility] Drug form: Active 2012 Medical PDR/INJ, PRN, [place] Dosing Weight 118.2, kg, PRN Blood Glucose Results, Start date: 10/04/12 0:40:00, Duration: 30 day, Stop date: 11/03/12 0:39:00 Ofirmev 1,000 mg, 100 IV No Longer [facility] mL, Route: IV, Active 2012 Medical Drug form: INJ, Center Q6H, Start date: 10/03/12 18:00:00, Duration: 4 doses or times, Stop date: 10/04/12 12:00:00 Mefoxin 2 gm, Route: IVPB No Longer [facility] IVPB, Drug form: Active 2012 Medical INJ, ABXQ8H, [place] Start date: 10/03/12 16:00:00, Duration: 2 doses or times, Stop date: 10/04/12 0:00:00 Lopressor 5 mg, 5 mL, IV No Longer Low [facility] Route: IV, Drug Active 2012 Medical form: INJ, Q6H, Center Start date: 10/03/12 16:00:00, Duration: 30 day, Stop date: 11/02/12 10:00:00 Humulin R 100 10 unit, 0.1 mL, SUB-Q No Longer [facility] units/mL Route: SUB-Q, Active 2012 [facility], PRN Blood Glucose Results, Start date: 10/03/12 14:30:00, Duration: 30 day, Stop date: 11/02/12 14:29:00 Dextrose 50% in 50 mL, Route: IV No Longer [facility] Water IV IV, Start date: Active 2012 Medical 10/03/12 [place] 14:29:00, Duration: 30 day, Stop date: 11/02/12 14:28:00, PRN Blood Glucose Results Dextrose 50% in 25 mL, Route: IVP No Longer [facility] 10/03[facility] Water IV IVP, Start date: Active 2012 Medical 10/03/12 [place] 14:28:00, Duration: 30 day, Stop date: 11/02/12 14:27:00, PRN Blood Glucose Results Zofran 4 mg, 2 mL, IVP No Longer Low [place] Route: IVP, Drug Active 2012 Medical form: INJ, Q8H, Center PRN Nausea, Start date: 10/03/12 14:22:00, Duration: 30 day, Stop date: 11/02/12 14:21:00 naloxone 0.2 mg, 0.5 mL, IV No Longer Bagshi [place] Route: IV, Drug Active 2012 Medical form: INJ, PRN, Center PRN Narcotic Reversal, Start date: 10/03/12 14:21:00, Duration: 30 day, Stop date: 11/02/12 14:20:00 hydromorphone IV, Start date: IV No Longer Low [place] 15 mg 10/03/122012 Medical 14:19:00, Center Duration: 30, 30 ml, 118.2 Phenergan 12.5 mg, 0.5 mL, IVPB No Longer [facility] [facility] [place] Route: IVPB, Active 2012 Medical Drug form: INJ, Center Q4H, PRN Nausea, Start date: 10/03/12 14:08:00, Duration: 30 day, Stop date: 11/02/12 14:07:00 Phenergan 12.5 mg, 0.5 mL, IM No Longer [facility] [place] Route: IM, Drug Active 2012 Medical form: INJ, Q4H, Center PRN Nausea, Start date: 10/03/12 14:07:00, Duration: 30 day, Stop date: 11/02/12 14:06:00 Benadryl 25 mg, 0.5 mL, IM No Longer [facility] [place] Route: IM, Drug Active 2012 Medical form: INJ, Center Bedtime, PRN Insomnia, Start date: 10/03/12 14:04:00, Duration: 30 day, Stop date: 11/02/12 14:03:00 Lactated 1,000 mL, Rate: IV No Longer [facility] [place] 125 ml/hr, Active 2012 Medical Injection IV Infuse over: 8 Center 1,000 mL hr, Route: IV, kg, Total Volume: 1,000, Start date: 10/03/12 14:00:00, Duration: 30 day, Stop date: 11/02/12 13:59:00 ondansetron 4 mg, 2 mL, IVP No Longer Jose [facility] Route: IVP, Drug Active 2012 Medical [...] mg, 0.25 mL, IVP No Longer Jose [facility] Route: IVP, Drug Active 2012 Medical [...] 2 gm, Route: IVPB No Longer [facility] [place] IVPB, Drug form: Active 2012 Medical INJ, PRE OP, Center Priority: STAT, Start date: 10/03/12 5:50:00, Duration: 1 day, Stop date: 10/04/12 5:49:00 Mobic 15 mg 10 mg, PO, PO Active [place] oral tablet Daily, 30 tab, 2012 Medical Substitution Center Allowed, TAB Zetia Daily, Active [facility] Substitution 2011 Medical Allowed Center Klor-Con 10 10 mEq, 1 tab, PO Active [facility] oral tablet, PO, Daily, 180 2011 Medical extended tab, Center release Substitution Allowed, ERTAB ferrous 324 mg, 1 tab, PO Active [facility] gluconate 324 PO, Daily, 100 2011 Medical mg oral tablet tab, Center Substitution Allowed, TAB Lasix 40 mg 40 mg, 1 tab, PO Active [facility] oral tablet PO, Daily, 30 2011 Medical tab, Center Substitution Allowed, TAB Cymbalta 60 mg 60 mg, 1 cap, PO Active [facility] oral delayed PO, BID, 30 cap, 2011 Medical release capsule Substitution Center Allowed, ECCAP Crestor 20 mg 20 mg, 1 tab, PO Active [place] oral tablet PO, Daily, 30 2011 Medical tab, Center Substitution Allowed, TAB Flexeril 10 mg 10 mg, 1 tab, PO Active [place] oral tablet PO, TID, PRN, 30 2011 Medical tab, for spasm, Center Substitution Allowed, TAB Lyrica 150 mg 150 mg, 1 cap, PO Active [facility] oral capsule PO, BID, 90 cap, 2011 Medical Substitution Center Allowed, CAP Klonopin 0.5 mg 0.5 mg, 1 tab, PO Active [place] oral tablet PO, TID, 2011 Medical Substitution Center Allowed, TAB Diovan 160 mg 160 mg, 1 tab, PO Active [place] oral [...] Medical Substitution Center Allowed NovoLog Substitution Active [facility] Allowed 2011 [facility] Levemir FlexPen Substitution Active [facility] Allowed 2011 [facility] Allergies, Adverse Reactions, Alerts Substance Category Reaction Severity Reaction Status Date Comments Source type Reported Immunizations Immunization Date Given Site Status Last Updated Comments Source influenza virus 07/14/2013 completed Diony [facility] vaccine, [facility] inactivated Center pneumococcal 07/14/2013 completed Diony [facility] 23-valent vaccine [facility] Center Results Order Name Results Value Reference Date Interpretation Comments Source Range CHEMISTRY U Preg Negative Negative 08/13 Normal [facility] (08/13/2013 13:30:00) [facility] URINALYSIS UA RBC 0-2 /HPF 0 - 2 08/13 Normal [facility] URINALYSIS UA WBC 3-5 /HPF None Seen 08/13 Normal [facility] URINALYSIS UA Sq Epi Few /LPF Few 08/13 Normal [facility] URINALYSIS Micro? Performed 08/13 Normal [facility] (08/13/2013 13:30:00) Center URINALYSIS UA Hyal Cast 0-2 0 - 2 08/13 Normal [facility] (08/13/2013 13:30:00) Center URINALYSIS UA Glucose 250 mg/dL Negative 08/13 [facility] URINALYSIS UA Blood Negative Negative 08/13 Normal [facility] (08/13/2013 13:30:00) Center URINALYSIS UA Ketones >=80 mg/dL Negative 08/13 [facility] URINALYSIS UA 0.2 EU/dL 0.1 - 1.0 08/13 Normal [facility] Urobilinogen /2012 [facility] URINALYSIS UA Nitrite Negative Negative 08/13 Normal Medical (08/13/2013 13:30:00) [facility] URINALYSIS UA Bili Small 1 Negative 08/13 ABN 1Result Comment: Interpret positive bilirubin results with caution. Confirmatory testing not possible due to the unavailability of reagent. Correlation with Medical *ABN* serum chemistry results recommended. [facility] (08/13/2013 13:30:00) URINALYSIS UA Leuk Est Negative Negative 08/13 Normal [facility] (08/13/2013 13:30:00) [facility] URINALYSIS UA Protein Negative Negative 08/13 Normal [facility] (08/13/2013 13:30:00) [facility] URINALYSIS UA pH 6.0 5.0 - 8.0 08/13 Normal [facility] URINALYSIS UA Spec Grav 1.020 <=1.030 08/13 Normal [facility] URINALYSIS UA Color Yellow Yellow 08/13 Medical *NA* [facility] (08/13/2013 13:30:00) URINALYSIS UA Turbidity Clear Clear 08/13 Normal [facility] (08/13/2013 13:30:00) [facility] CHEMISTRY BE Mark 1 mMol/L -2-2 - 2 08/13 Normal [facility] CHEMISTRY pO2 Mark 29 mm[Hg] 20 - 49 08/13 Normal [facility] CHEMISTRY O2 Sat Mark 55.9 % 40.0 - 08/13 Normal [facility] 70.0 [facility] CHEMISTRY Temp Mark 37.0 Abby 08/13 [facility] CHEMISTRY HCO3 Mark 26 mMol/L 22 - 26 08/13 Normal [facility] CHEMISTRY pCO2 Mark 41 mm[Hg] 38 - 52 08/13 Normal [facility] CHEMISTRY pH Mark 7.41 7.28 - 08/13 Normal [facility] 7.42 [facility] CHEMISTRY eGFR 60 08/13 2Result Comment: The eGFR is calculated using the CKD-EPI formula. In most young, healthy individuals the eGFR will be >90 mL/ min/1.73m2. The eGFR declines with age. An eGFR of 60-89 may be normal in [facility] mL/min/1. some populations, particularly the elderly, for whom the CKD-EPI formula has not been extensively validated. Use of the eGFR is not recommended in the following populations: Medical [address] [place] [address] Individuals with unstable creatinine concentrations, including patients [...] 25 meq/L 24 - 32 08/13 Normal [facility] CHEMISTRY Chloride Lvl 98 meq/L 95 - 109 08/13 Normal [facility] CHEMISTRY BUN 9 mg/dL 7 - 22 08/13 Normal [facility] CHEMISTRY Calcium Lvl 9.1 mg/dL 8.5 - 10.5 08/13 Normal [facility] CHEMISTRY Glucose Lvl 301 mg/dL 70 - 99 08/13 [facility] 3Interpretive Data: Adult reference range values reflect the clinical guidelines of the [employer]. [facility] CHEMISTRY Potassium Lvl 3.8 meq/L 3.5 - 5.1 08/13 Normal [facility] CHEMISTRY Sodium Lvl 134 meq/L 135 - 145 08/13 LOW [facility] CHEMISTRY Creatinine 1.1 mg/dL 0.5 - 1.4 08/13 Normal [facility] CHEMISTRY Bili Total 0.6 mg/dL 0.2 - 1.3 08/13 Normal [facility] CHEMISTRY ASPARTATE 17 unit/L 0 - 37 08/13 Normal [facility] TRANSAMINASE [facility] CHEMISTRY ALANINE 22 unit/L 0 - 65 08/13 Normal [facility] AMINOTRANSFER [facility] Center CHEMISTRY Albumin Lvl 3.5 g/dL 3.5 - 5.0 08/13 Normal [facility] CHEMISTRY Alk Phos 130 unit/L 39 - 136 08/13 Normal [facility] CHEMISTRY Total Protein 7.8 g/dL 6.4 - 8.4 08/13 Normal [facility] CHEMISTRY B/C Ratio 8 6 - 25 08/13 Normal [facility] CHEMISTRY AGAP 14.8 meq/L 10.0 - 12 Normal [facility] 20.0 [facility] CHEMISTRY Globulin 4.3 g/dL 2.0 - 4.0 08/13 [place] [facility] CHEMISTRY A/G Ratio 0.8 0.7 - 1.6 12 Normal [facility] HEMATOLOGY Monocytes # 0.8 K/CMM 0.0 - 0.8 08/13 Normal [facility] HEMATOLOGY Eosinophils # 0.0 K/CMM 0.0 - 0.5 08/13 Normal [facility] HEMATOLOGY Basophils # 0.0 K/CMM 0.0 - 0.2 08/13 Normal [facility] HEMATOLOGY Basophils 0.1 % 0.0 - 1.0 08/13 Normal [facility] HEMATOLOGY Lymphocytes # 1.4 K/CMM 1.0 - 5.5 08/13 Normal [facility] HEMATOLOGY Segs-Bands # 10.5 K/CMM 1.5 - 8.1 08/13 [facility] HEMATOLOGY Monocytes 6.3 % 2.0 - 12.0 08/13 Normal [facility] HEMATOLOGY Eosinophils 0.2 % 0.0 - 4.0 08/13 Normal [facility] HEMATOLOGY Lymphocytes 11.3 % 20.0 - 12 LOW [facility] 40.0 /2012 [facility] HEMATOLOGY Segs 82.1 % 45.0 - 12 [facility] 75.0 [facility] HEMATOLOGY WBC X 10x3 12.7 K/CMM 3.7 - 10.4 08/13 [facility] HEMATOLOGY Hct 37.0 % 36.0 - 12/08 Normal [facility] 48.0 [facility] HEMATOLOGY RBC X 10x6 4.36 M/CMM 4.20 - 1208 Normal [facility] 5.40 /2012 [facility] HEMATOLOGY Hgb 12.6 g/dL 12.0 - 1208 Normal [facility] 16.0 /2012 [facility] HEMATOLOGY MCV 84.8 fL 81.0 - 1208 Normal [facility] 99.0 [facility] HEMATOLOGY MCH 28.8 pg 27.0 - 12 Normal [facility] 31.0 [facility] HEMATOLOGY MCHC 34.0 g/dL 32.0 - 12 Normal [facility] 36.0 [facility] HEMATOLOGY Platelet 238 K/CMM 133 - 450 12 [facility] HEMATOLOGY MPV 9.5 fL 7.4 - 10.4 12 Normal Medical Center HEMATOLOGY RDW 13.1 % 11.5 - 08/13 Normal [facility] 14.5 Medical Center BEDSIDE Gluc POC Notify 07/26 [facility] GLUCOSE Comment 1 RN/ /2013 Medical TESTING Center BEDSIDE Glucose POC 274 mg/dL 70 - 99 07/26 [place] 1Interpretive [facility] GLUCOSE Data: Medical TESTING Center Upper Reportable Limit: 200 mg/dL. BEDSIDE Glucose POC 146 mg/dL 70 - 99 07/15 [place] 2Interpretive [facility] GLUCOSE Data: Medical TESTING Center Upper Reportable Limit: 200 mg/dL. BEDSIDE Gluc POC Notify 07/15 [facility] GLUCOSE Comment 1 RN/MD /2012 Medical TESTING Center BEDSIDE Glucose POC 140 mg/dL 70 - 99 07/14 [place] 3Interpretive [facility] GLUCOSE Data: Medical TESTING Center Upper Reportable Limit: 200 mg/dL. BEDSIDE Gluc POC Notify 07/14 [facility] GLUCOSE Comment 1 RN/ 2013 [facility] TESTING Center BEDSIDE Gluc POC Notify 07/14 [facility] GLUCOSE Comment 1 RN/ /2013 Medical TESTING Center BEDSIDE Glucose POC 44 mg/dL 70 - 99 07/14 LOW 4Interpretive [facility] Data: Medical TESTING Center Upper Reportable Limit: 200 mg/dL. IMMUNOLOGY [place]-HIV Negative Negative 07/14 [facility] 09/07 [facility] *NA* Center (07/14/2013 00:27:00) IMMUNOLOGY [place]-Hep C Negative Negative 07/14 [facility] (07[facility]14[facility]2013 00:27:00) CHEMISTRY eGFR 109 07/13 5Result Comment: The eGFR is calculated using the CKD-EPI formula. In most young, healthy individuals the eGFR will be >90 mL/ min/1.73m2. The eGFR declines with age. An eGFR of 60-89 may be normal in [facility] mL/min/1.7 some populations, particularly the elderly, [...] 135 meq/L 135 - 145 07/13 Normal [facility] CHEMISTRY Chloride Lvl 95 meq/L 95 - 109 07/13 Normal [facility] CHEMISTRY AGAP 16.5 meq/L 10.0 - 07/13 Normal [facility] 20.0 [facility] CHEMISTRY Glucose Lvl 322 mg/dL 70 - 99 07/13 [place] 8Interpretive Data: Adult reference range values reflect the clinical guidelines of the [employer]. [facility] CHEMISTRY Creatinine 0.6 mg/dL 0.5 - 1.4 07/13 Normal [facility] CHEMISTRY BUN 6 mg/dL 7 - 22 07/13 LOW [facility]2012 [facility] CHEMISTRY Calcium Lvl 8.6 mg/dL 8.5 - 10.5 07/13 Normal [facility]2012 [facility] CHEMISTRY CO2 27 meq/L 24 - 32 07/13 Normal [facility] CHEMISTRY Potassium Lvl 3.5 meq/L 3.5 - 5.1 07/13 Normal [facility]2012 [facility] INFECTIOUS C difficile Negative 1 Negative 07/13 Normal 1Interpretive Data: [employer] illumigene Clostridium difficile assay utilizes loop-mediated isothermal DNA amplification (LAMP) technology to detect a 204 bp region of the tcdA gene within the PaLoc gene [facility] segment present in all known toxigenic C. difficile strains. [facility] (07/13/2013 00:00:59) [facility] The assay utilizes FDA cleared IVD reagents. Performance characteristics have been verified by the [facility] within the [facility]. The [facility] is authorized under the Clinical Laboratory Improvement Amendment of 1988 (CLIA-88) to perform high complexity testing. CHEMISTRY Lactic Acid 1.9 mMol/L 0.5 - 2.2 07/12 Normal [facility] CHEMISTRY eGFR 88 07/12 6Result Comment: The eGFR is calculated using the CKD-EPI formula. In most young, healthy individuals the eGFR will be >90 mL/ min/1.73m2. The eGFR declines with age. An eGFR of 60-89 may be normal in [facility] mL/min/1. some populations, particularly the elderly, for whom the CKD-EPI formula has not been extensively validated. Use of the eGFR is not recommended in the following populations: [place] [address] Center Individuals with unstable creatinine concentrations, including [...] CHEMISTRY Troponin-I null 0.00 - 07/12 Normal [facility] 0.40 [facility] HEMATOLOGY Basophils # 0.0 K/CMM 0.0 - 0.2 07/12 Normal [facility] HEMATOLOGY Eosinophils # 0.3 K/CMM 0.0 - 0.5 07/12 Normal [facility] HEMATOLOGY Monocytes # 1.0 K/CMM 0.0 - 0.8 07/12 [place] [facility] HEMATOLOGY Lymphocytes # 3.0 K/CMM 1.0 - 5.5 07/12 Normal [facility] HEMATOLOGY Segs-Bands # 6.4 K/CMM 1.5 - 8.1 07/12 Normal [facility] HEMATOLOGY Basophils 0.4 % 0.0 - 1.0 07/12 Normal [facility] HEMATOLOGY Eosinophils 2.8 % 0.0 - 4.0 07/12 Normal [facility] HEMATOLOGY Plt Morph Normal 07/12 [facility] (07/12/2013 16:29:10) [facility] HEMATOLOGY RBC Morph Normal 07/12 [facility] (07/12/2013 16:29:10) Center HEMATOLOGY Monocytes 9.4 % 2.0 - 12.0 07/12 Normal [facility] HEMATOLOGY Lymphocytes 27.9 % 20.0 - 07/12 Normal [place] 40.0 [facility] HEMATOLOGY Segs 59.5 % 45.0 - 07/12 Normal [facility] 75.0 [facility] HEMATOLOGY MCV 85.3 fL 81.0 - 07/12 [facility] 99.0 [facility] HEMATOLOGY Hct 41.2 % 36.0 - 07/12 Normal [place] 48.0 [facility] HEMATOLOGY Hgb 13.6 g/dL 12.0 - 07/12 Normal [facility] 16.0 [facility] HEMATOLOGY RBC X 10x6 4.84 M/CMM 4.20 - 07/12 Normal [facility] 5.40 /2012 Medical Center HEMATOLOGY MPV 9.4 fL 7.4 - 10.4 07/12 Normal Medical [facility] HEMATOLOGY Platelet 225 K/CMM 133 - 450 07/12 Normal Medical [facility] HEMATOLOGY MCH 28.1 pg 27.0 - 07/12 Normal [facility] 31.0 Medical Center HEMATOLOGY MCHC 33.0 g/dL 32.0 - 07/12 Normal [facility] 36.0 /2012 [facility] HEMATOLOGY RDW 12.7 % 11.5 - 07/12 Normal [facility] 14.5 Medical [facility] HEMATOLOGY WBC X 10x3 10.7 K/CMM 3.7 - 10.4 07/12 [place] [facility] CHEMISTRY AGAP 12.4 meq/L 10.0 - 07/12 Normal [facility] . [facility] CHEMISTRY Calcium Lvl 8.8 mg/dL 8.5 - 10.5 07/12 Normal [facility] CHEMISTRY Chloride Lvl 102 meq/L 95 - 109 07/12 Normal [facility] CHEMISTRY Potassium Lvl 3.4 meq/L 3.5 - 5.1 07/12 LOW [facility] CHEMISTRY CO2 30 meq/L 24 - 32 07/12 Normal [facility] CHEMISTRY Sodium Lvl 141 meq/L 135 - 145 07/12 Normal [facility] CHEMISTRY Creatinine 0.8 mg/dL 0.5 - 1.4 07/12 Normal [facility] CHEMISTRY BUN 6 mg/dL 7 - 22 07/12 LOW [facility] CHEMISTRY Glucose Lvl 163 mg/dL 70 - 99 07/12 [facility] 9Interpretive Data: Adult reference range values reflect the clinical guidelines of the [place] [employer]. Medical Center IMMUNOLOGY CDC-HIV 1/2 Negative Negative 07/12 Medical *NA* Center (07/12/2013 16:02:06) CHEMISTRY Calcium Lvl 8.4 mg/dL 8.5 - 10.5 07/12 LOW [facility] CHEMISTRY AGAP 10.4 meq/L 10.0 - 07/12 Normal [facility] CHEMISTRY eGFR 76 07/12 7Result Comment: The eGFR is calculated using the CKD-EPI formula. In most young, healthy individuals the eGFR will be >90 mL/ min/1.73m2. The eGFR declines with age. An eGFR of 60-89 may be normal in [facility] mL/min/1.7 some populations, particularly the elderly, for whom the CKD-EPI formula has not been extensively validated. Use of the eGFR is not recommended in the following populations: [address] Individuals with unstable creatinine concentrations, including [...] 140 meq/L 135 - 145 07/12 Normal [facility] CHEMISTRY Chloride Lvl 103 meq/L 95 - 109 07/12 Normal [facility] CHEMISTRY Potassium Lvl 3.4 meq/L 3.5 - 5.1 07/12 LOW [facility]2012 [facility] CHEMISTRY BUN 9 mg/dL 7 - 22 07/12 Normal [facility] CHEMISTRY Creatinine 0.9 mg/dL 0.5 - 1.4 07/12 Normal [facility] CHEMISTRY Glucose Lvl 296 mg/dL 70 - 99 07/12 [place] 10Interpretive Data: Adult reference range values reflect the clinical guidelines of the [employer]. [facility] CHEMISTRY CO2 30 meq/L 24 - 32 07/12 Normal [facility] CHEMISTRY Troponin-I null 0.00 - 11 Normal [facility] 0.40 [facility] CHEMISTRY Lipase Lvl 76 unit/L 73 - 393 07/12 Normal [facility] CHEMISTRY B/C Ratio 11 6 - 25 07/12 Normal [facility] CHEMISTRY ASPARTATE 25 unit/L 0 - 37 07/12 Normal [facility] CHEMISTRY Bili Total 0.4 mg/dL 0.2 - 1.3 07/12 Normal [facility] CHEMISTRY Alk Phos 119 unit/L 39 - 136 07/12 Normal [facility] CHEMISTRY Albumin Lvl 3.9 g/dL 3.5 - 5.0 07/12 Normal [facility] CHEMISTRY ALANINE 29 unit/L 0 - 65 07/12 Normal [facility] AMINO [facility] CHEMISTRY Total Protein 8.1 g/dL 6.4 - 8.4 07/12 Normal [facility] CHEMISTRY Globulin 4.2 g/dL 2.0 - 4.0 07/12 [place] [facility] CHEMISTRY A/G Ratio 0.9 0.7 - 1.6 07/12 Normal [facility] HEMATOLOGY Monocytes # 0.6 K/CMM 0.0 - 0.8 07/12 Normal [facility] HEMATOLOGY Segs-Bands # 9.5 K/CMM 1.5 - 8.1 07/12 [place] [facility] HEMATOLOGY Eosinophils # 0.2 K/CMM 0.0 - 0.5 07/12 Normal [facility]2012 [facility] HEMATOLOGY Lymphocytes # 2.1 K/CMM 1.0 - 5.5 07/12 Normal [facility] HEMATOLOGY Basophils 0.2 % 0.0 - 1.0 07/12 Normal [facility] HEMATOLOGY Neut Vac Slight None Seen 07/12 ABN [facility] *ABN* [facility] (07/12/2013 03:30:00) HEMATOLOGY Hypochrom Slight None Seen 07/12 Normal [facility] (07/12/2013 03:30:00) [facility] HEMATOLOGY Basophils # 0.0 K/CMM 0.0 - 0.2 07/12 Normal [facility] HEMATOLOGY RBC Morph Normal 07/12 Normal [facility] (07/12/2013 03:30:00) [facility] HEMATOLOGY Eosinophils 1.6 % 0.0 - 4.0 07/12 Normal [facility] HEMATOLOGY Monocytes 4.6 % 2.0 - 12.0 07/12 Normal [facility] HEMATOLOGY Segs 76.6 % 45.0 - 07/12 HI [facility] 75.0 [facility] HEMATOLOGY Lymphocytes 17.0 % 20.0 - 07/12 LOW [facility] 40.0 [facility] HEMATOLOGY Plt Morph Normal 07/12 Normal [facility] (07/12/2013 03:30:00) [facility] HEMATOLOGY MCHC 32.4 g/dL 32.0 - 07/12 Normal [facility] 36.0 [facility] HEMATOLOGY MCH 27.4 pg 27.0 - 07/12 Normal [facility] 31.0 /2012 [facility] HEMATOLOGY RDW 12.7 % 11.5 - 07/12 Normal [facility] 14.5 /2012 [facility] HEMATOLOGY Platelet 235 K/CMM 133 - 450 07/12 Normal [facility] HEMATOLOGY MPV 9.4 fL 7.4 - 10.4 07/12 Normal [facility] HEMATOLOGY Hgb 12.9 g/dL 12.0 - 07/12 Normal [facility] 16.0 [facility] HEMATOLOGY MCV 84.3 fL 81.0 - 07/12 Normal [facility] 99.0 /2012 [facility] HEMATOLOGY Hct 39.6 % 36.0 - 07/12 Normal [facility] 48.0 [facility] HEMATOLOGY WBC X 10x3 12.4 K/CMM 3.7 - 10.4 07/12 HI [facility] HEMATOLOGY RBC X 10x6 4.70 M/CMM 4.20 - 07/12 Normal [facility] 5.40 /2012 [facility] CHEMISTRY U Preg Negative Negative 07/12 Normal [facility] (07/12/2013 03:00:00) Center URINALYSIS UA Leuk Est Negative Negative 07/12 Normal [facility] (07/12/2013 03:00:00) Center URINALYSIS UA 0.2 EU/dL 0.1 - 1.0 07/12 Normal [facility] Urobilinogen [facility] URINALYSIS UA Nitrite Negative Negative 07/12 Normal [facility] (07/12/2013 03:00:00) Center URINALYSIS UA Bili Negative Negative 07/12 [facility] *NA* Center (07/12/2013 03:00:00) URINALYSIS UA pH 6.0 5.0 - 8.0 07/12 Normal [facility] URINALYSIS UA Protein Negative Negative 07/12 Normal [facility] mg/dL [facility] URINALYSIS UA Glucose >=1000 Negative 07/12 ABN [facility] mg/dL [facility] URINALYSIS UA Ketones 15 mg/dL Negative 07/12 ABN [facility] URINALYSIS UA Spec Grav 1.020 <=1.030 07/12 Normal [facility] URINALYSIS UA Blood Negative Negative 07/12 Normal [facility] (07/12/2013 03:00:00) [place] URINALYSIS UA Color Yellow Yellow 07/12 [facility] Medical *NA* Center (07/12/2013 03:00:00) URINALYSIS UA Turbidity Clear Clear 07/12 Normal [facility] (07/12/2013 03:00:00) [place] URINALYSIS UA RBC 0-2 /HPF 0 - 2 07/12 Normal [facility] URINALYSIS UA WBC 3-5 /HPF None Seen 07/12 Normal [facility] URINALYSIS UA Sq Epi Many /LPF Few 07/12 ABN [facility]2012 [facility] URINALYSIS UA Bacteria Few /HPF None Seen 07/12 Normal [facility] URINALYSIS UA [place] Yeast Moderate None Seen 07/12 [facility] URINALYSIS Micro? Performed 07/12 Normal [facility] (07/12/2013 03:00:00) [place] Abdomen/Pel Abdomen/Pelvi EXAM: CT ABDOMEN WITH CONTRAST 07/12 - [facility] vis w s w contrast - Medical contrast CT CT EXAM: CT PELVIS WITH CONTRAST This report was dictated by a Envelope Folder/Fellow. I have personally reviewed the images as [...] mg/dL 70 - 99 04/03 HI 1Interpretive [facility] GLUCOSE Lifscn /2012 Data: Medical TESTING Center Upper Reportable Limit: 200 mg/dL. BEDSIDE Comment2 Sliding 04/03 [facility] [place] GLUCOSE Scale /2012 [facility]ING Center BEDSIDE Comment1 Notify 04/03 NA [facility] GLUCOSE RN/MD /2012 [facility] BEDSIDE Comment1 Notify 04/03 [facility] GLUCOSE RN/MD /2012 [facility] BEDSIDE Gluc POC 198 mg/dL 70 - 99 04/03 HI 2Interpretive [facility] GLUCOSE Lifscn Data: [facility] [place] Upper Reportable Limit: 200 mg/dL. BEDSIDE Comment2 Sliding 04/03 NA [facility] GLUCOSE Scale [facility] TESTING [place] Abdomen 2 Abdomen 2 EXAM: XR ABDOMEN 1 VIEW 04/03 - [facility] views - Medical Center DATE: March [...] Cho MD. BEDSIDE Comment2 Sliding 04/03 NA [facility] GLUCOSE Scale /2012 [facility] TESTING [place] BEDSIDE Comment1 Notify 04/03 NA [facility] GLUCOSE RN/ /2012 [facility] TESTING Center BEDSIDE Gluc POC 182 mg/dL 70 - 99 04/03 HI 3Interpretive [facility] GLUCOSE Lifscn Data: [facility] [place] Upper Reportable Limit: 200 mg/dL. CHEMISTRY Troponin-T null 0.000 - 04/03 Normal [facility] 0.100 [facility] CHEMISTRY Troponin-I null 0.00 - 04/03 Normal [facility] 0.40 [facility] CHEMISTRY Total CK 41 unit/L 12 - 191 04/03 Normal [facility] CHEMISTRY Creatinine 0.6 mg/dL 0.5 - 1.4 04/03 Normal [facility] Lvl [facility] CHEMISTRY Sodium Lvl 137 meq/L 135 - 145 04/03 Normal [facility] CHEMISTRY CO2 25 meq/L 24 - 32 04/03 Normal [facility] CHEMISTRY Calcium Lvl 8.2 mg/dL 8.5 - 10.5 04/03 LOW [facility] CHEMISTRY AGAP 17.9 meq/L 10.0 - 04/03 Normal [facility] 20.0 [facility] CHEMISTRY Potassium Lvl 3.9 meq/L 3.5 - 5.1 04/03 Normal [facility] CHEMISTRY Chloride Lvl 98 meq/L 95 - 109 04/03 Normal [facility] CHEMISTRY Glucose Lvl 266 mg/dL 70 - 99 04/03 HI 6Interpretive Data: Adult reference range values reflect the clinical guidelines of the [employer]. [facility] CHEMISTRY BUN 3 mg/dL 7 - 22 04/03 LOW [facility] CHEMISTRY eGFR 109 04/03 NA 4Result Comment: The eGFR is calculated using the CKD-EPI formula. In most young, healthy individuals the eGFR will be > 90 mL/min/1.73m2. The eGFR declines with age. An eGFR of 60-89 may be normal in [facility] mL/min/1.7 some populations, particularly the elderly, for whom the CKD-EPI formula has not been extensively validated. Use of the eGFR is not recommended in the following populations: [address] Individuals with unstable creatinine concentrations, including [...] HEMATOLOGY Hgb 10.5 g/dL 12.0 - 04/03 [facility] 16.0 [facility] HEMATOLOGY RBC 4.22 M/CMM 4.20 - 04/03 [facility] 5.40 /2012 [facility] HEMATOLOGY WBC 10.3 K/CMM 3.7 - 10.4 04/03 Normal [facility] HEMATOLOGY Hct 33.5 % 36.0 - 04/03 [facility] 48.0 [facility] HEMATOLOGY MPV 8.8 fL 7.4 - 10.4 04/03 Normal [facility] HEMATOLOGY Platelet 276 K/CMM 133 - 450 04/03 Normal [facility] HEMATOLOGY RDW 18.7 % 11.5 - 04/03 HI [facility] 14.5 [facility] HEMATOLOGY MCHC 31.2 g/dL 32.0 - 04/03 [facility] 36.0 [facility] HEMATOLOGY MCH 24.8 pg 27.0 - 04/03 [facility] 31.0 [facility] HEMATOLOGY MCV 79.5 fL 81.0 - 04/03 [facility] 99.0 [facility] HEMATOLOGY Segs 58.6 % 45.0 - 04/03 Normal 75.0 [facility] HEMATOLOGY Lymphocytes 29.9 % 20.0 - 04/03 Normal [place] 40.0 [facility] HEMATOLOGY Basophils 1.3 % 0.0 - 1.0 04/03 HI [facility] HEMATOLOGY Lymphocytes # 3.1 K/CMM 1.0 - 5.5 04/03 Normal [facility] HEMATOLOGY Segs-Bands # 6.0 K/CMM 1.5 - 8.1 04/03 Normal [facility] HEMATOLOGY Eosinophils 2.8 % 0.0 - 4.0 04/03 Normal [facility] HEMATOLOGY Eosinophils # 0.3 K/CMM 0.0 - 0.5 04/03 Normal [facility] HEMATOLOGY Monocytes # 0.8 K/CMM 0.0 - 0.8 04/03 Normal [facility] HEMATOLOGY Basophils # 0.1 K/CMM 0.0 - 0.2 04/03 Normal [facility] HEMATOLOGY Monocytes 7.4 % 2.0 - 12.0 04/03 Normal [facility] CHEMISTRY Troponin-I null 0.00 - 04/03 Normal 0. [facility] CHEMISTRY Total CK 51 unit/L 04/03 Normal [facility] CHEMISTRY Troponin-T null 0.000 - 04/03 Normal [place] 0.100 [facility] CHEMISTRY Bili Direct 0.1 mg/dL 0.0 - 0.3 04/03 Normal [facility] CHEMISTRY Bili Total 0.4 mg/dL 0.2 - 1.3 04/03 Normal [facility] CHEMISTRY Bili Indirect 0.3 mg/dL 0.0 - 1.0 04/03 Normal [facility] CHEMISTRY ALT 22 unit/L 0 - 65 04/03 Normal [facility] CHEMISTRY AST 31 unit/L 0 - 37 04/03 Normal [facility] CHEMISTRY Lipase Lvl 54 unit/L 73 - 393 04/03 LOW [facility] CHEMISTRY Troponin-I null 0.00 - 04/02 Normal [place] 0.40 [facility] CHEMISTRY Total CK 24 unit/L 12 - 04/02 Normal [facility] CHEMISTRY AGAP 17.5 meq/L 10.0 - 04/02 Normal [facility] 20. [facility] CHEMISTRY eGFR 88 04/02 NA 5Result Comment: The eGFR is calculated using the CKD-EPI formula. In most young, healthy individuals the eGFR will be > 90 mL/min/1.73m2. The eGFR declines with age. An eGFR of 60-89 may be normal in [facility] mL/min/1.7 some populations, particularly the elderly, for whom the CKD-EPI formula has not been extensively validated. Use of the eGFR is not recommended in the following populations: [address] Individuals with unstable creatinine concentrations, including [...] 0.8 mg/dL 0.5 - 1.4 04/02 Normal [facility] Lvl [facility] CHEMISTRY Potassium Lvl 3.5 meq/L 3.5 - 5.1 04/02 Normal [facility] CHEMISTRY Chloride Lvl 97 meq/L 95 - 109 04/02 Normal [facility] CHEMISTRY Glucose Lvl 163 mg/dL 70 - 99 04/02 HI 7Interpretive Data: Adult reference range values reflect the clinical guidelines of the [employer]. [facility] CHEMISTRY BUN 2 mg/dL 7 - 22 04/02 LOW [facility] CHEMISTRY Sodium Lvl 136 meq/L 135 - 145 04/02 Normal [facility] CHEMISTRY Calcium Lvl 8.6 mg/dL 8.5 - 10.5 04/02 Normal [facility] CHEMISTRY CO2 25 meq/L 24 - 32 04/02 Normal [facility] HEMATOLOGY Platelet 378 K/CMM 133 - 450 04/02 Normal [facility] HEMATOLOGY MCHC 33.4 g/dL 32.0 - 04/02 Normal [facility] 36. [facility] HEMATOLOGY RDW 17.3 % 11.5 - 04/02 HI [facility] 14.5 [facility] HEMATOLOGY MCV 76.0 fL 81.0 - 04/02 [facility] 99.0 /2012 [facility] HEMATOLOGY MCH 25.4 pg 27.0 - 04/02 [facility] 31.0 /2012 [facility] HEMATOLOGY Hct 34.2 % 36.0 - 04/02 [facility] 48.0 [facility] HEMATOLOGY RBC 4.50 M/CMM 4.20 - 04/02 Normal [facility] 5.40 /2012 [facility] HEMATOLOGY Hgb 11.4 g/dL 12.0 - 04/02 [facility] 16.0 [facility] HEMATOLOGY WBC 9.0 K/CMM 3.7 - 10.4 04/02 Normal [facility] HEMATOLOGY MPV 8.4 fL 7.4 - 10.4 04/02 Normal [facility] HEMATOLOGY Microcyte 2+ None Seen 04/[address] [facility]* Center (04/02/2013 17:09:00) HEMATOLOGY Basophils # 0.1 K/CMM 0.0 - 0.2 04/02 Normal [facility] HEMATOLOGY Eosinophils # 0.1 K/CMM 0.0 - 0.5 04/02 Normal [facility] HEMATOLOGY Monocytes # 0.7 K/CMM 0.0 - 0.8 04/02 Normal [facility] HEMATOLOGY Lymphocytes # 1.4 K/CMM 1.0 - 5.5 04/02 Normal [facility] HEMATOLOGY Segs-Bands # 6.7 K/CMM 1.5 - 8.1 04/02 Normal [facility] HEMATOLOGY Basophils 1.3 % 0.0 - 1.0 04/02 HI [facility] HEMATOLOGY Lymphocytes 15.2 % 20.0 - 04/02 [facility] 40.0 [facility] HEMATOLOGY Segs 74.3 % 45.0 - 04/02 [facility] 75.0 [facility] HEMATOLOGY Eosinophils 1.6 % 0.0 - 4.0 04/02 Normal [facility] HEMATOLOGY Monocytes 7.6 % 2.0 - 12.0 04/02 [facility] Chest 1view Chest 1view EXAM: XR CHEST 1 VIEW 04/02 - - [facility] Center DATE: 2013-04-02 1638 hours Read by: [...] mg/dL 70 - 99 03/09 HI 1Interpretive [facility] GLUCOSE Lifscn Data: [facility] Center Upper Reportable Limit: 200 mg/dL. BEDSIDE Comment1 Notify 03/09 NA [facility] GLUCOSE RN/ Medical [facility] Center CHEMISTRY eGFR 88 03/09 NA 4Result Comment: The eGFR is calculated using the CKD-EPI formula. In most young, healthy individuals the eGFR will be > 90 mL/min/1.73m2. The eGFR declines with age. An eGFR of 60-89 may be normal in [facility] mL/min/1.7 some populations, particularly the elderly, for whom the CKD-EPI formula has not been extensively validated. Use of the eGFR is not recommended in the following populations: [place] [address] Center Individuals with unstable creatinine concentrations, including [...] 7 mg/dL 7 - 22 03/09 Normal [facility] CHEMISTRY Creatinine 0.8 mg/dL 0.5 - 1.4 03/09 Normal [facility] Lvl [facility] CHEMISTRY Sodium Lvl 138 meq/L 135 - 145 03/09 Normal [facility] CHEMISTRY Potassium Lvl 4.7 meq/L 3.5 - 5.1 03/09 Normal [facility] CHEMISTRY Chloride Lvl 104 meq/L 95 - 109 03/09 Normal [facility] CHEMISTRY CO2 23 meq/L 24 - 32 03/09 LOW [facility] CHEMISTRY Bili Total 0.2 mg/dL 0.2 - 1.3 07/ Normal [facility] CHEMISTRY AST 22 unit/L 0 - 37 / Normal [facility]2012 [facility] CHEMISTRY Total Protein 4.8 g/dL 6.4 - 8.4 07 LOW [facility]2012 [facility] CHEMISTRY Calcium Lvl 7.4 mg/dL 8.5 - 10.5 03/09 LOW [facility]2012 [facility] CHEMISTRY Albumin Lvl 1.9 g/dL 3.5 - 5.0 03/09 LOW [facility]2012 [facility] CHEMISTRY Glucose Lvl 192 mg/dL 70 - 99 07/ HI 7Interpretive Data: Adult reference range values reflect the clinical guidelines of the [employer]. [facility] CHEMISTRY Alk Phos 162 unit/L 39 - 136 03/09 HI 2012 [facility] CHEMISTRY ALT 18 unit/L 0 - 65 03/09 Normal [facility]2012 [facility] CHEMISTRY A/G Ratio 0.7 0.7 - 1.6 03/09 Normal [facility]2012 [facility] CHEMISTRY Globulin 2.9 g/dL 2.0 - 4.0 03/09 Normal [facility]2012 [facility] CHEMISTRY AGAP 15.7 meq/L 10.0 - 07 Normal [facility] 20.0 [facility] CHEMISTRY B/C Ratio 9 6 - 25 03/09 Normal [facility]2012 [facility] HEMATOLOGY Eosinophils 1.9 % 0.0 - 4.0 / Normal [facility]2012 [facility] HEMATOLOGY Basophils 1.0 % 0.0 - 1.0 03/09 Normal [facility]2012 [facility] HEMATOLOGY Anisocyte 1+ None Seen 03/09 ABN Medical *ABN* Center (03/09/2013 01:09:00) HEMATOLOGY Lymphocytes # 2.0 K/CMM 1.0 - 5.5 07/ Normal [facility]2012 [facility] HEMATOLOGY Monocytes # 0.6 K/CMM 0.0 - 0.8 07/ Normal [facility]2012 [facility] HEMATOLOGY Eosinophils # 0.1 K/CMM 0.0 - 0.5 07/ Normal [facility]2012 [facility] HEMATOLOGY Basophils # 0.1 K/CMM 0.0 - 0.2 07/ Normal [facility]2012 [facility] HEMATOLOGY Segs-Bands # 4.6 K/CMM 1.5 - 8.1 07 Normal [facility] HEMATOLOGY Segs 62.8 % 45.0 - 07/ Normal [place] 75.0 /2012 Medical Center HEMATOLOGY Lymphocytes 26.4 % 20.0 - 07/04 Normal [place] 40.0 /2012 Medical Center HEMATOLOGY Monocytes 7.9 % 2.0 - 12.0 07/ Normal /2012 Medical Center HEMATOLOGY RDW 20.7 % 11.5 - 07/04 [facility] [place] 14.5 /2012 Medical Center HEMATOLOGY Platelet 304 K/CMM 133 - 450 07 Normal /2012 [facility] Center HEMATOLOGY MPV 8.0 fL 7.4 - 10.4 07/ Normal [facility] HEMATOLOGY Hct 24.9 % 36.0 - 07/ LOW [place] 48.0 /2012 [facility] HEMATOLOGY MCV 79.3 fL 81.0 - 07/ LOW [place] 99.0 /2012 [facility] HEMATOLOGY MCH 24.7 pg 27.0 - 07 LOW [place] 31.0 /2012 Medical Center HEMATOLOGY MCHC 31.2 g/dL 32.0 - 07 LOW [place] 36.0 /2012 [facility] Center HEMATOLOGY RBC 3.14 M/CMM 4.20 - 07 LOW [place] 5.40 /2012 Medical Center HEMATOLOGY Hgb 7.8 g/dL 12.0 - 07/ LOW [place] 16.0 /2012 [facility] Center HEMATOLOGY WBC 7.4 K/CMM 3.7 - 10.4 03/09 Normal Medical Center BEDSIDE Gluc POC 131 mg/dL 70 - 99 03/09 HI 2Interpretive [facility] GLUCOSE Lifwy Data: Medical TESTING Center Upper Reportable Limit: 200 mg/dL. BEDSIDE Comment1 Notify 03/09 NA [facility] GLUCOSE RN/MD /2012 [facility] Center BEDSIDE Comment1 Notify 03/09 NA [facility] GLUCOSE RN/MD /2012 [facility] Center BEDSIDE Gluc POC 155 mg/dL 70 - 99 03/09 HI 3Interpretive [facility] GLUCOSE Lifsc Data: Medical TESTING Center Upper Reportable Limit: 200 mg/dL. CHEMISTRY Magnesium Lvl 1.5 mg/dL 1.8 - 2.4 03/08 LOW [facility] Center CHEMISTRY A/G Ratio 0.7 0.7 - 1.6 03/08 Normal Medical Center CHEMISTRY B/C Ratio 8 6 - 25 03/08 Normal [facility] CHEMISTRY Globulin 2.8 g/dL 2.0 - 4.0 03/08 Normal [facility] CHEMISTRY AGAP 15.8 meq/L 10.0 - 03/08 Normal [facility] 20.0 [facility] CHEMISTRY Potassium Lvl 3.8 meq/L 3.5 - 5.1 03/08 Normal [facility] CHEMISTRY Chloride Lvl 100 meq/L 95 - 109 03/08 Normal [facility] CHEMISTRY CO2 23 meq/L 24 - 32 03/08 LOW [facility] CHEMISTRY Total Protein 4.8 g/dL 6.4 - 8.4 03/08 LOW [facility] CHEMISTRY AST 10 unit/L 0 - 37 03/08 Normal [facility] CHEMISTRY Calcium Lvl 7.6 mg/dL 8.5 - 10.5 03/08 LOW [facility] CHEMISTRY Bili Total 0.3 mg/dL 0.2 - 1.3 03/08 Normal [facility] CHEMISTRY eGFR 88 03/08 NA 5Result Comment: The eGFR is calculated using the CKD-EPI formula. In most young, healthy individuals the eGFR will be > 90 mL/min/1.73m2. The eGFR declines with age. An eGFR of 60-89 may be normal in [facility] mL/min/1. some populations, particularly the elderly, for whom the CKD-EPI formula has not been extensively validated. Use of the eGFR is not recommended in the following populations: [address] Individuals with unstable creatinine concentrations, including [...] values reflect the clinical guidelines of the [employer]. [facility] CHEMISTRY BUN 6 mg/dL 7 - 22 03/08 LOW [facility] CHEMISTRY Creatinine 0.8 mg/dL 0.5 - 1.4 03/08 Normal [facility] CHEMISTRY Sodium Lvl 135 meq/L 135 - 145 07 Normal [facility] CHEMISTRY Alk Phos 173 unit/L 39 - 136 07 HI [facility] CHEMISTRY ALT 16 unit/L 0 - 65 07 Normal [facility] CHEMISTRY Albumin Lvl 2.0 g/dL 3.5 - 5.0 03/08 LOW [facility] CHEMISTRY Lipase Lvl 54 unit/L 73 - 393 03/08 LOW [facility] CHEMISTRY Amylase Lvl 30 unit/L 25 - 115 03/08 Normal [facility] HEMATOLOGY Basophils # 0.1 K/CMM 0.0 - 0.2 03/08 Normal [facility] HEMATOLOGY Anisocyte 1+ None Seen 03/08 ABN [facility] *[facility]* Center (03/08/2013 03:01:00) HEMATOLOGY Microcyte 1+ None Seen 03/08 [facility] *ABN* Center (03/08/2013 03:01:00) HEMATOLOGY Eosinophils # 0.2 K/CMM 0.0 - 0.5 03/08 Normal [facility] HEMATOLOGY Monocytes # 0.8 K/CMM 0.0 - 0.8 03/08 Normal [facility] HEMATOLOGY Lymphocytes 34.2 % 20.0 - 07 Normal [facility] 40.0 [facility] HEMATOLOGY Segs 53.3 % 45.0 - 03/08 [facility] 75.0 [facility] HEMATOLOGY Lymphocytes # 3.0 K/CMM 1.0 - 5.5 03/08 Normal [facility] HEMATOLOGY Segs-Bands # 4.7 K/CMM 1.5 - 8.1 03/08 Normal [facility] HEMATOLOGY Basophils 0.9 % 0.0 - 1.0 07/ Normal [facility] HEMATOLOGY Eosinophils 2.6 % 0.0 - 4.0 07/ Normal [facility] HEMATOLOGY Monocytes 9.0 % 2.0 - 12.0 / Normal [facility] HEMATOLOGY Hgb 7.9 g/dL 12.0 - 07 LOW [facility] 16.0 [facility] HEMATOLOGY RBC 3.12 M/CMM 4.20 - 07/03 LOW [facility] 5.40 /2012 [facility] HEMATOLOGY MPV 8.0 fL 7.4 - 10.4 07/ Normal Medical [place] HEMATOLOGY Platelet 294 K/CMM 133 - 450 07/ Normal Medical [place] HEMATOLOGY MCH 25.3 pg 27.0 - 07/ [facility] 31.0 /2012 Medical [place] HEMATOLOGY MCV 79.7 fL 81.0 - 07/ [facility] 99.0 /2012 Medical [place] HEMATOLOGY Hct 24.9 % 36.0 - 07/ [facility] 48.0 /2012 Medical [place] HEMATOLOGY WBC 8.8 K/CMM 3.7 - 10.4 07/ Normal [facility] HEMATOLOGY RDW 21.4 % 11.5 - 07/03 [facility] 14.5 /2012 Medical [place] HEMATOLOGY MCHC 31.8 g/dL 32.0 - 07/ [facility] 36.0 /2012 [facility] CHEMISTRY Troponin-I null 0.00 - 07 Normal [facility] 0.40 [facility] CHEMISTRY Total CK 26 unit/L 12 - 191 07 Normal [facility] CHEMISTRY A/G Ratio 0.6 0.7 - 1.6 07/ LOW [facility] CHEMISTRY Bili Total 0.6 mg/dL 0.2 - 1.3 07 Normal [facility] CHEMISTRY Bili Direct 0.3 mg/dL 0.0 - 0.3 07/ Normal [facility] CHEMISTRY Alk Phos 190 unit/L 39 - 136 07 [facility] CHEMISTRY Total Protein 5.2 g/dL 6.4 - 8.4 07 [facility] CHEMISTRY Globulin 3.2 g/dL 2.0 - 4.0 07/ Normal [facility] CHEMISTRY Bili Indirect 0.3 mg/dL 0.0 - 1.0 07/ Normal [facility] CHEMISTRY AST 11 unit/L 0 - 37 07 Normal [facility] CHEMISTRY Albumin Lvl 2.0 g/dL 3.5 - 5.0 07 LOW [facility] CHEMISTRY ALT 19 unit/L 0 - 65 07/ Normal [facility] [facility] CHEMISTRY Amylase Lvl 26 unit/L 25 - 115 07 Normal [facility] CHEMISTRY Lipase Lvl 49 unit/L 73 - 393 07 LOW [facility] HEMATOLOGY MPV 8.3 fL 7.4 - 10.4 07 Normal [facility] HEMATOLOGY MCH 24.7 pg 27.0 - 07 [facility] 31.0 /2012 [facility] HEMATOLOGY MCHC 32.6 g/dL 32.0 - 07 Normal [facility] 36.0 /2012 [facility] HEMATOLOGY RDW 20.1 % 11.5 - 07/ [facility] 14.5 /2012 [facility] HEMATOLOGY Platelet 362 K/CMM 133 - 450 07 Normal [facility] HEMATOLOGY MCV 75.7 fL 81.0 - 07 [facility] 99.0 /2012 [facility] HEMATOLOGY Hgb 8.8 g/dL 12.0 - 03/07 [facility] 16.0 [facility] HEMATOLOGY Hct 26.9 % 36.0 - 03/07 [facility] 48.0 /2012 [facility] HEMATOLOGY RBC 3.56 M/CMM 4.20 - 03/07 [facility] 5.40 /2012 [facility] HEMATOLOGY WBC 11.1 K/CMM 3.7 - 10.4 03/07 [facility] HEMATOLOGY Lymphocytes # 2.4 K/CMM 1.0 - 5.5 03/07 Normal [facility] HEMATOLOGY Hypochrom Slight None Seen 03/07 Normal [facility] (03/07/2013 07:43:59) Center HEMATOLOGY Microcyte 2+ None Seen 03/07 [facility] *ABN* [facility] (03/07/2013 07:43:59) HEMATOLOGY Anisocyte 1+ None Seen 03/07 [facility] *ABN* [facility] (03/07/2013 07:43:59) HEMATOLOGY Basophils # 0.1 K/CMM 0.0 - 0.2 03/07 Normal [facility] HEMATOLOGY Polychrom Slight None Seen 03/07 [facility] (03/07/2013 07:43:59) Center HEMATOLOGY Basophils 0.8 % 0.0 - 1.0 03/07 Normal [facility] HEMATOLOGY Eosinophils 1.3 % 0.0 - 4.0 03/07 Normal [facility] HEMATOLOGY Segs-Bands # 7.6 K/CMM 1.5 - 8.1 07/02 Normal [facility] HEMATOLOGY Monocytes 8.1 % 2.0 - 12.0 03/07 Normal [facility] HEMATOLOGY Monocytes # 0.9 K/CMM 0.0 - 0.8 / HI [facility] HEMATOLOGY Eosinophils # 0.1 K/CMM 0.0 - 0.5 03/07 Normal [facility] HEMATOLOGY Target Cell Slight None Seen 03/07 ABN Medical *ABN* Center (03/07/2013 07:43:59) HEMATOLOGY Plt Morph Normal 03/07 Normal Medical (03/07/2013 07:43:59) Center HEMATOLOGY Lymphocytes 22.0 % 20.0 - 07 [facility] 40.0 [facility] HEMATOLOGY Segs 67.8 % 45.0 - 07 Normal [facility] 75.0 [facility] CHEMISTRY Lactic Acid 1.7 mMol/L 0.5 - 2.2 03/07 Normal [facility] Lvl [facility] CHEMISTRY Total CK 21 unit/L 12 - 191 03/07 Normal [facility] CHEMISTRY Troponin-I null 0.00 - 07 Normal [facility] 0.40 /2012 [facility] CHEMISTRY eGFR 104 03/07 NA 6Result Comment: The eGFR is calculated using the CKD-EPI formula. In most young, healthy individuals the eGFR will be > 90 mL/min/1.73m2. The eGFR declines with age. An eGFR of 60-89 may be normal in [facility] mL/min/1.7 some populations, particularly the elderly, for whom the CKD-EPI formula has not been extensively validated. Use of the eGFR is not recommended in the following populations: [address] Individuals with unstable creatinine concentrations, including [...] CHEMISTRY CO2 27 meq/L 24 - 32 07/ Normal [facility] CHEMISTRY Potassium Lvl 3.6 meq/L 3.5 - 5.1 03/07 Normal [facility] CHEMISTRY Chloride Lvl 99 meq/L 95 - 109 03/07 Normal [facility] CHEMISTRY Sodium Lvl 134 meq/L 135 - 145 03/07 LOW [facility] CHEMISTRY BUN 5 mg/dL 7 - 22 03/07 LOW [facility] CHEMISTRY Creatinine 0.7 mg/dL 0.5 - 1.4 03/07 Normal [facility] Lvl [facility] CHEMISTRY Glucose Lvl 233 mg/dL 70 - 99 03/07 HI 9Interpretive Data: Adult reference range values reflect the clinical guidelines of the [employer]. [facility] CHEMISTRY Calcium Lvl 7.7 mg/dL 8.5 - 10.5 03/07 LOW [facility] CHEMISTRY AGAP 11.6 meq/L 10.0 - 07 Normal [facility] 20.0 [facility] CHEMISTRY Temp Art 37.0 Abby 03/07 NA [facility] CHEMISTRY pH Art 7.41 7.35 - 03/07 Normal [facility] 7.45 [facility] CHEMISTRY pCO2 Art 34 mm[Hg] 35 - 45 03/07 LOW [facility] CHEMISTRY O2 Sat Art 97.5 % 95.0 - 03/07 Normal [facility] 100.0 [facility] CHEMISTRY HCO3 Art 22 mMol/L 22 - 26 03/07 Normal [facility] CHEMISTRY BE Art -2 mMol/L -2-2 - 2 03/07 Normal [facility] CHEMISTRY pO2 Art 96 mm[Hg] 80 - 100 03/07 Normal [facility] Chest 1view Chest 1view EXAM: CHEST 1 VIEW 03/07 - - Medical This report was dictated by a Envelope Folder/Fellow. I have personally reviewed the images as [...] No pneumothorax. CHEMISTRY Temp Mark 37.0 Abby 07 NA [facility] CHEMISTRY pO2 Mark 20 mm[Hg] 20 - 49 03/07 Normal [facility] CHEMISTRY HCO3 Mark 21 mMol/L 22 - 26 03/07 LOW [facility] CHEMISTRY BE Mark -2 mMol/L -2-2 - 2 03/07 Normal [facility] CHEMISTRY O2 Sat Mark 36.2 % 40.0 - 03/07 [facility] 70.0 [facility] CHEMISTRY pCO2 Mark 29 mm[Hg] 38 - 52 03/07 LOW [facility] CHEMISTRY pH Mark 7.46 7.28 - 03/07 [facility] 7.42 [facility] CHEMISTRY Lactic Acid 2.6 mMol/L 0.5 - 2.2 03/07 HI [facility] Lvl [facility] CHEMISTRY Phosphorus 3.1 mg/dL 2.5 - 4.5 03/07 Normal [facility] CHEMISTRY Magnesium Lvl 1.6 mg/dL 1.8 - 2.4 03/07 LOW [facility] CHEMISTRY Total CK 31 unit/L 12 - 191 03/07 Normal [facility] CHEMISTRY Troponin-I null 0.00 - 03/07 Normal [facility] 0.40 [facility] CHEMISTRY U Preg Negative Negative 03/06 Normal [facility] (03/06/2013 18:25:00) Center URINALYSIS UA Amorph Occasional /HPF None Seen 03/06 [facility] Medical *ABN* [facility] (03/06/2013 18:25:00) URINALYSIS UA Mucus Few /LPF None Seen 03/06 Normal [facility] (03/06/2013 18:25:00) Center URINALYSIS Micro? Performed 03/06 Normal [facility] (03/06/2013 18:25:00) Center URINALYSIS UA Sq Epi Moderate /LPF Few 03/06 [facility] Medical *ABN* Center (03/06/2013 18:25:00) URINALYSIS UA WBC 0-2 /HPF None Seen 03/06 Normal [facility] (03/06/2013 18:25:00) Center URINALYSIS UA RBC None Seen 0 - 2 03/06 Normal [facility] (03/06/2013 18:25:00) Center URINALYSIS UA Bacteria Few /HPF None Seen 03/06 Normal [facility] (03/06/2013 18:25:00) Center URINALYSIS UA Bili Negative Negative 03/06 NA Medical *NA* [facility] (03/06/2013 18:25:00) URINALYSIS UA 0.2 EU/dL 0.1 - 1.0 03/06 Normal [facility] Urobilinogen /2012 [facility] URINALYSIS UA Nitrite Negative Negative 03/06 Normal [facility] (03/06/2013 18:25:00) Center URINALYSIS UA Leuk Est Trace Negative 03/06 [facility] *ABN* [facility] (03/06/2013 18:25:00) URINALYSIS UA Blood Negative Negative 03/06 Normal [facility] (03/06/2013 18:25:00) Center URINALYSIS UA Ketones 40 mg/dL Negative 03/06 [facility] Medical *ABN* [facility] (03/06/2013 18:25:00) URINALYSIS UA Turbidity Clear Clear 03/06 Normal [facility] (03/06/2013 18:25:00) [facility] URINALYSIS UA Color Yellow Yellow 03/06 NA [facility] *NA* [facility] (03/06/2013 18:25:00) URINALYSIS UA Spec Grav 1.015 <=1.030 03/06 Normal [facility] URINALYSIS UA Protein Negative Negative 03/06 Normal [facility] (03/06/2013 18:25:00) Center URINALYSIS UA Glucose 250 mg/dL Negative 03/06 [facility] *ABN* [facility] (03/06/2013 18:25:00) URINALYSIS UA pH 7.5 5.0 - 8.0 03/06 Normal [facility] Chest 2 Chest 2 views EXAM: CHEST 2 VIEWS 03/06 - [facility] - Medical This report was dictated by a Envelope Folder/Fellow. I have personally reviewed the images as [...] left pleural effusion. BEDSIDE Comment1 Notify 12/07 [facility] Fei GLUCOSE MARTÍNEZ/ [facility] TESTING Center BEDSIDE Gluc POC 64 mg/dL 70 - 99 12/07 LOW 3Interpretive [facility] Upper Reportable Limit: 200 mg/dL. BEDSIDE Gluc POC 50 mg/dL 70 - 99 12/07 LOW 4Interpretive [facility] GLUCOSE [employer] Data: [facility] Upper Reportable Limit: 200 mg/dL. BEDSIDE Comment1 Notify 12/07 [facility] Fei GLUCOSE MARTÍNEZ/ /2012 [facility] BEDSIDE Gluc POC 45 mg/dL 70 - 99 12/07 LOW 5Interpretive [facility] Upper Reportable Limit: 200 mg/dL. BEDSIDE Comment1 Notify 12/07 [facility] Fei ROACH RN/ /2012 [facility] CHEMISTRY eGFR 109 12/07 NA 7Result Comment: The eGFR is calculated using the CKD-EPI formula. In most young, healthy individuals the eGFR will be > 90 mL/min/1.73m2. The eGFR declines with age. An eGFR of 60-89 may be normal in [facility] mL/min/1.7 /2012 some populations, particularly the elderly, for whom the CKD-EPI formula has not been extensively validated. Use of the eGFR is not recommended in the following populations: [address] Center Individuals with unstable creatinine concentrations, [...] 8.3 mg/dL 8.5 - 10.5 12/07 LOW [facility] CHEMISTRY AGAP 12.8 meq/L 10.0 - 12/07 Normal [facility] 20.0 [facility] CHEMISTRY BUN 2 mg/dL 7 - 22 12/07 LOW [facility] CHEMISTRY Glucose Lvl 95 mg/dL 70 - 99 12/07 Normal 10Interpretive Data: Adult reference range values reflect the clinical guidelines of the [employer]. [facility] Center CHEMISTRY Potassium Lvl 3.8 meq/L 3.5 - 5.1 12/07 Normal [facility] CHEMISTRY Creatinine 0.6 mg/dL 0.5 - 1.4 12/07 Normal [facility] CHEMISTRY Sodium Lvl 140 meq/L 135 - 145 12/07 Normal [facility] CHEMISTRY Chloride Lvl 105 meq/L 95 - 109 12/07 Normal [facility] CHEMISTRY CO2 26 meq/L 24 - 32 12/07 Normal [facility] BEDSIDE Comment2 Verify 12/06 NA [facility] GLUCOSE Lab [facility] BEDSIDE Comment2 Verify 12/06 NA [facility] GLUCOSE /Lab [facility] TESTING [facility] CHEMISTRY AGAP 13.5 meq/L 10.0 - 12/06 Normal [facility] .0 [facility] CHEMISTRY Calcium Lvl 8.1 mg/dL 8.5 - 10.5 12/06 LOW [facility] CHEMISTRY CO2 28 meq/L 24 - 32 12/06 Normal [facility] CHEMISTRY Chloride Lvl 101 meq/L 95 - 109 12/06 Normal [facility] CHEMISTRY eGFR 104 04 NA 8Result Comment: The eGFR is calculated using the CKD-EPI formula. In most young, healthy individuals the eGFR will be > 90 mL/min/1.73m2. The eGFR declines with age. An eGFR of 60-89 may be normal in [facility] mL/min/1.7 some populations, particularly the elderly, for whom the CKD-EPI formula has not been extensively validated. Use of the eGFR is not recommended in the following populations: [address] Individuals with unstable creatinine concentrations, including [...] reference range values reflect the clinical guidelines [facility] of the [employer]. [facility] CHEMISTRY BUN 2 mg/dL 7 - 22 04 LOW [facility]2012 [facility] CHEMISTRY Creatinine 0.7 mg/dL 0.5 - 1.4 / Normal [facility] [place] CHEMISTRY Sodium Lvl 139 meq/L 135 - 145 / Normal [facility]2012 [facility] CHEMISTRY Potassium Lvl 3.5 meq/L 3.5 - 5.1 12/06 Normal [facility]2012 [facility] CHEMISTRY Lipase Lvl 62 unit/L 73 - 393 04/ LOW [facility]2012 [facility] CHEMISTRY Alk Phos 92 unit/L 39 - 136 04/ Normal [facility]2012 [facility] CHEMISTRY Albumin Lvl 2.7 g/dL 3.5 - 5.0 / [facility]2012 [facility] CHEMISTRY Total Protein 5.8 g/dL 6.4 - 8.4 / LOW [facility]2012 [facility] CHEMISTRY Globulin 3.1 g/dL 2.0 - 4.0 / Normal [facility]2012 [facility] CHEMISTRY A/G Ratio 0.9 0.7 - 1.6 / Normal [facility]2012 [facility] CHEMISTRY AST 74 unit/L 0 - 37 04/ HI [facility] CHEMISTRY ALT 50 unit/L 0 - 65 / Normal [facility]2012 [facility] CHEMISTRY Bili Indirect 0.1 mg/dL 0.0 - 1.0 / Normal [facility]2012 [facility] CHEMISTRY Bili Total 0.2 mg/dL 0.2 - 1.3 / Normal [facility]2012 [facility] CHEMISTRY Bili Direct 0.1 mg/dL 0.0 - 0.3 12/06 Normal [facility]2012 [facility] CHEMISTRY eGFR 109 12/05 NA 9Result Comment: The eGFR is calculated using the CKD-EPI formula. In most young, healthy individuals the eGFR will be > 90 mL/min/1.73m2. The eGFR declines with age. An eGFR of 60-89 may be normal in [facility] mL/min/1.7 some populations, particularly the elderly, for whom the CKD-EPI formula has not been extensively validated. Use of the eGFR is not recommended in the following populations: Medical [facility] Individuals with unstable creatinine concentrations, including [...] values reflect the clinical guidelines of the [employer]. [facility] CHEMISTRY Creatinine 0.6 mg/dL 0.5 - 1.4 12/05 Normal [facility] Lvl [facility] CHEMISTRY BUN 1 mg/dL 7 - 22 12/05 LOW [facility] CHEMISTRY Chloride Lvl 102 meq/L 95 - 109 12/05 Normal [facility] CHEMISTRY Potassium Lvl 3.3 meq/L 3.5 - 5.1 12/05 LOW [facility] CHEMISTRY Sodium Lvl 140 meq/L 135 - 145 12/05 Normal [facility] CHEMISTRY Calcium Lvl 7.9 mg/dL 8.5 - 10.5 12/05 LOW [facility] CHEMISTRY CO2 29 meq/L 24 - 32 12/05 Normal [facility] CHEMISTRY AGAP 12.3 meq/L 10.0 - 12/05 Normal [facility] 20.0 [facility] CHEMISTRY Ca Norm mgdL 4.84 mg/dL 4.65 - 12/03 Normal [facility] 5. [facility] CHEMISTRY Ca Ion mgdL 4.84 mg/dL 4.65 - 12/03 Normal [facility] 5. [facility] CHEMISTRY Ca Ion 1.21 1.16 - 12/03 Normal [facility] mMol/L 1.30 [facility] CHEMISTRY Ca Norm 1.21 1.16 - 12/03 Normal [facility] mMol/L 1. [facility] CHEMISTRY Magnesium Lvl 1.8 mg/dL 1.8 - 2.4 12/03 Normal [facility] CHEMISTRY Phosphorus 3.4 mg/dL 2.5 - 4.5 12/03 Normal [facility] HEMATOLOGY Lymphocytes # 1.8 K/CMM 1.0 - 5.5 12/03 Normal [facility] HEMATOLOGY Lymphocytes 23.6 % 20.0 - 12/03 Normal [place] 40.0 [facility] HEMATOLOGY Eosinophils 2.9 % 0.0 - 4.0 12/03 Normal [facility] HEMATOLOGY Monocytes 9.1 % 2.0 - 12.0 12/03 Normal [facility] HEMATOLOGY Basophils 0.6 % 0.0 - 1.0 12/03 Normal [facility] HEMATOLOGY Segs-Bands # 5.0 K/CMM 1.5 - 8.1 12/03 Normal [facility] HEMATOLOGY Segs 63.8 % 45.0 - 12/03 Normal [place] 75.0 [facility] HEMATOLOGY Monocytes # 0.7 K/CMM 0.0 - 0.8 12/03 Normal [facility] HEMATOLOGY Eosinophils # 0.2 K/CMM 0.0 - 0.5 12/03 Normal [facility] HEMATOLOGY Microcyte 1+ None Seen 12/03 ABN [facility] *ABN* Center (12/03/2012 01:02:00) HEMATOLOGY WBC 7.8 K/CMM 3.7 - 10.4 12/03 Normal [facility] HEMATOLOGY Hct 27.8 % 36.0 - 12/03 LOW [place] 48.0 [facility] HEMATOLOGY MPV 8.5 fL 7.4 - 10.4 12/03 Normal [facility] HEMATOLOGY MCHC 32.4 g/dL 32.0 - 12/03 Normal [facility] 36.0 [facility] HEMATOLOGY RDW 18.9 % 11.5 - 12/03 HI [place] 14.5 [facility] HEMATOLOGY MCH 24.6 pg 27.0 - 12/03 LOW [place] 31.0 [facility] HEMATOLOGY RBC 3.66 M/CMM 4.20 - 12/03 LOW [place] 5.40 [facility] HEMATOLOGY MCV 75.9 fL 81.0 - 12/03 LOW [facility] 99.0 Medical [facility] HEMATOLOGY Platelet 224 K/CMM 133 - 450 12/03 Normal [facility] HEMATOLOGY Hgb 9.0 g/dL 12.0 - 12/03 LOW [facility] 16.0 [facility] Microbiolog Culture: 12/02 [facility] y Blood /2012 [facility] Center Microbiolog Culture: MRSA 12/02 [facility] y /2012 Medical Center Microbiolog Culture: 12/02 [facility] y Resistant Medical Acinetobacter Center Screen CHEMISTRY Ketone 1.42 <=0.27 12/02 HI [facility] Quantitative mmol/L /2012 [facility] URINALYSIS UA WBC 1 /HPF 0 - 5 12/02 Normal [facility] URINALYSIS UA RBC null 0 - 2 12/02 Normal [facility] URINALYSIS UA <=1.0 0.1 - 1.0 12/02 NA [facility] Urobilinogen mg/dL Medical
*NA*< Center br/>(12/02 04:02:55) <sup> </sup> URINALYSIS UA Sq Epi Moderate /LPF Few 12/02 ABN Medical *ABN* Center (12/02/2012 04:02:55) URINALYSIS UA Leuk Est Negative Negative 12/02 Normal [facility] (12/02/2012 04:02:55) Center URINALYSIS UA Nitrite Negative Negative 12/02 Normal [facility] (12/02/2012 04:02:55) Center URINALYSIS UA Mucus Few /LPF None Seen 12/02 NA Medical *NA* Center (12/02/2012 04:02:55) URINALYSIS UA Ketones 40 mg/dL Negative 12/02 ABN [facility] *ABN* Center (12/02/2012 04:02:55) URINALYSIS UA Blood Negative Negative 12/02 Normal [facility] (12/02/2012 04:02:55) Center URINALYSIS UA Glucose >=1000 mg/dL Negative 12/02 ABN [facility] *ABN* Center (12/02/2012 04:02:55) URINALYSIS UA Bili Negative Negative 12/02 NA Medical *NA* Center (12/02/2012 04:02:55) URINALYSIS UA Protein Negative mg/dL Negative 12/02 Normal [facility] (12/02/2012 04:02:55) Center URINALYSIS UA Turbidity Clear Clear 12/02 Normal [facility] (12/02/2012 04:02:55) Center URINALYSIS UA pH 5.5 5.0 - 8.0 12/02 Normal [facility] URINALYSIS UA Spec Grav 1.010 <=1.030 12/02 Normal [facility] URINALYSIS UA Color Yellow Yellow 12/02 NA [facility] *NA* Center (12/02/2012 04:02:55) HEMATOLOGY MPV 8.9 fL 7.4 - 10.4 12/02 Normal [facility] HEMATOLOGY Hct 27.9 % 36.0 - 12/02 [facility] 48.0 [facility] HEMATOLOGY MCV 76.1 fL 81.0 - 12/02 [facility] 99.0 [facility] HEMATOLOGY MCH 25.2 pg 27.0 - 12/02 LOW [facility] 31.0 [facility] HEMATOLOGY MCHC 33.2 g/dL 32.0 - 12/02 Normal [facility] 36.0 [facility] HEMATOLOGY RDW 19.3 % 11.5 - 12/02 HI [facility] 14.5 [facility] HEMATOLOGY Platelet 224 K/CMM 133 - 450 12/02 Normal [facility] HEMATOLOGY WBC 8.6 K/CMM 3.7 - 10.4 12/02 Normal [facility] HEMATOLOGY Hgb 9.3 g/dL 12.0 - 12/02 [facility] 16.0 [facility] HEMATOLOGY RBC 3.67 M/CMM 4.20 - 12/02 [facility] 5.40 /2012 [facility] HEMATOLOGY Segs-Bands # 6.4 K/CMM 1.5 - 8.1 12/02 Normal [facility] HEMATOLOGY Lymphocytes # 1.5 K/CMM 1.0 - 5.5 12/02 Normal [facility] HEMATOLOGY Eosinophils 0.6 % 0.0 - 4.0 12/02 Normal [facility] HEMATOLOGY Basophils 0.7 % 0.0 - 1.0 12/02 Normal [facility] HEMATOLOGY Lymphocytes 17.3 % 20.0 - 12/02 LOW [facility] 40.0 [facility] HEMATOLOGY Monocytes # 0.7 K/CMM 0.0 - 0.8 12/02 Normal [facility] HEMATOLOGY Microcyte 1+ None Seen 12/02 ABN [facility] *ABN* Center (12/02/2012 04:02:51) HEMATOLOGY Eosinophils # 0.1 K/CMM 0.0 - 0.5 12/02 Normal [facility] HEMATOLOGY Basophils # 0.1 K/CMM 0.0 - 0.2 12/02 Normal [facility] HEMATOLOGY Segs 73.8 % 45.0 - 12/02 Normal [facility] 75.0 [facility] HEMATOLOGY Monocytes 7.6 % 2.0 - 12.0 12/02 Normal [facility] Microbiolog Culture: 12/02 [facility] y [facility] CHEMISTRY POC A Glu 305 mg/dL 70 - 99 12/02 HI [facility] CHEMISTRY POC A Hct 29.0 % 36.0 - 12/02 LOW [facility] 48.0 [facility] CHEMISTRY POC A O2 Sat 97.0 % 95.0 - 12/02 Normal [facility] 100.0 [facility] CHEMISTRY POC A K 3.4 meq/L 3.5 - 5.1 12/02 LOW [facility] CHEMISTRY POC A Na 130 meq/L 135 - 145 12/02 LOW [facility] Center CHEMISTRY POC A PCO2 38 mm[Hg] 35 - 45 12/02 Normal [facility] CHEMISTRY POC A BE 2 mMol/L -2-2 - 2 12/02 Normal [facility] CHEMISTRY POC A HCO3 26 mMol/L 22 - 26 12/02 Normal [facility] CHEMISTRY POC A Source ART 12/02 NA [facility] CHEMISTRY POC A PO2 89 mm[Hg] 80 - 100 12/02 Normal [facility] CHEMISTRY POC A pH 7.44 7.35 - 12/02 Normal [facility] 7.45 [facility] CHEMISTRY POC A Temp 37.0 Abby 12/02 NA [facility] CHEMISTRY POC A Ca Ion 1.12 1.16 - 12/02 LOW [facility] mMol/L 1.30 [facility] CHEMISTRY POC A LA 0.8 mMol/L 0.5 - 2.2 12/02 Normal [facility] CHEMISTRY Magnesium Lvl 1.9 mg/dL 1.8 - 2.4 12/02 Normal [facility] CHEMISTRY Phosphorus 2.7 mg/dL 2.5 - 4.5 12/02 Normal [facility] CHEMISTRY Ca Norm mgdL 4.36 mg/dL 4.65 - 12/02 LOW [facility] 5. [facility] CHEMISTRY Ca Ion 1.14 1.16 - 12/02 LOW [place] mMol/L 1. [facility] CHEMISTRY Ca Ion mgdL 4.56 mg/dL 4.65 - 12/02 LOW [facility] 5. [facility] CHEMISTRY Ca Norm 1.09 1.16 - 12/02 LOW [facility] mMol/L 1. [facility] HEMATOLOGY Platelet 223 K/CMM 133 - 450 12/02 Normal [facility] HEMATOLOGY MPV 9.2 fL 7.4 - 10.4 12/02 Normal [facility] HEMATOLOGY MCHC 32.3 g/dL 32.0 - 12/02 Normal [facility] 36.0 [facility] HEMATOLOGY RDW 19.2 % 11.5 - 12/02 HI [facility] 14.5 [facility] HEMATOLOGY WBC 7.6 K/CMM 3.7 - 10.4 12/02 Normal [facility] HEMATOLOGY Hgb 9.2 g/dL 12.0 - 12/02 [facility] 16.0 [facility] HEMATOLOGY Hct 28.6 % 36.0 - 12/02 [facility] 48.0 /2012 [facility] HEMATOLOGY MCV 76.3 fL 81.0 - 12/02 [facility] 99.0 [facility] HEMATOLOGY MCH 24.6 pg 27.0 - 12/02 [facility] 31.0 /2012 [facility] HEMATOLOGY RBC 3.74 M/CMM 4.20 - 12/02 [facility] 5.40 /2012 [facility] HEMATOLOGY Microcyte 1+ None Seen 12/02 ABN Medical *ABN* Center (12/02/2012 03:00:00) HEMATOLOGY Basophils # 0.1 K/CMM 0.0 - 0.2 12/02 Normal [facility] HEMATOLOGY Monocytes # 0.6 K/CMM 0.0 - 0.8 12/02 Normal [facility] HEMATOLOGY Lymphocytes # 1.9 K/CMM 1.0 - 5.5 12/02 Normal [facility] HEMATOLOGY Segs-Bands # 5.0 K/CMM 1.5 - 8.1 12/02 Normal [facility] HEMATOLOGY Segs 65.5 % 45.0 - 12/02 Normal [facility] 75.0 /2012 [facility] HEMATOLOGY Lymphocytes 25.0 % 20.0 - 12/02 Normal [facility] 40.0 /2012 [facility] HEMATOLOGY Monocytes 8.4 % 2.0 - 12.0 12/02 Normal [facility] HEMATOLOGY Eosinophils 0.4 % 0.0 - 4.0 12/02 Normal [facility] HEMATOLOGY Basophils 0.7 % 0.0 - 1.0 12/02 Normal [facility] CHEMISTRY Magnesium Lvl 2.0 mg/dL 1.8 - 2.4 12/01 Normal [facility] CHEMISTRY Ca Norm mgdL 4.48 mg/dL 4.65 - 12/01 LOW [facility] 5. [facility] CHEMISTRY Ca Ion mgdL 4.68 mg/dL 4.65 - 12/01 Normal [facility] 5. [facility] CHEMISTRY Ca Ion 1.17 1.16 - 12/01 Normal [facility] mMol/L 1. [facility] CHEMISTRY Ca Norm 1.12 1.16 - 12/01 LOW [facility] mMol/L 1. [facility] CHEMISTRY Phosphorus 2.7 mg/dL 2.5 - 4.5 12/01 Normal [facility] URINALYSIS UA <=1.0 0.1 - 1.0 11/30 NA [facility] Urobilinogen mg/dL /2012 Medical
*NA*< Center br/>(11/30 17:41:33) <sup> </sup> URINALYSIS UA Mucus Few /LPF None Seen 11/30 NA Medical *NA* Center (11/30/2012 17:41:33) URINALYSIS UA WBC null 0 - 5 11/30 Normal [facility] URINALYSIS UA Sq Epi Moderate /LPF Few 11/30 ABN Medical *ABN* Center (11/30/2012 17:41:33) URINALYSIS UA Protein Negative mg/dL Negative 11/30 Normal Medical (11/30/2012 17:41:33) Center URINALYSIS UA pH 5.0 5.0 - 8.0 11/30 Normal [facility] Center URINALYSIS UA Spec Grav 1.004 <=1.030 11/30 Normal [facility] Center URINALYSIS UA Turbidity Clear Clear 11/30 Normal [facility] (11/30/2012 17:41:33) Center URINALYSIS UA Color Light Yellow Yellow 11/30 NA Medical *NA* [facility] (11/30/2012 17:41:33) URINALYSIS UA Leuk Est Negative Negative 11/30 Normal [facility] (11/30/2012 17:41:33) Center URINALYSIS UA Nitrite Negative Negative 11/30 Normal [facility] (11/30/2012 17:41:33) Center URINALYSIS UA Blood Negative Negative 11/30 Normal [facility] (11/30/2012 17:41:33) Center URINALYSIS UA Bili Negative Negative 11/30 NA [facility] *NA* [facility] (11/30/2012 17:41:33) URINALYSIS UA Ketones 10 mg/dL Negative 11/30 ABN Medical *ABN* [place] (11/30/2012 17:41:33) URINALYSIS UA Glucose Negative mg/dL Negative 11/30 NA [facility] *NA* [facility] (11/30/2012 17:41:33) CHEMISTRY Ketone 1.65 <=0.27 11/30 HI [facility] Quantitative mmol/L /2012 [facility] HEMATOLOGY PT 14.1 s 12.0 - 11/30 Normal [facility] 14.7 [facility] HEMATOLOGY PTT 28.1 s 22.9 - 11/30 Normal 18Interpretiv [facility] 35.8 /2013 e Data: [facility] Heparin Center Therapeutic Range: 57 - 92 Seconds HEMATOLOGY INR 1.07 0.85 - 11/30 Normal 16Interpretive Data: RECOMMENDED RANGES FOR PROTIME INR: [facility] . 2.0-3.0 for most medical and surgical thromboembolic states. Medical 2.5-3.5 for artificial heart valves and recurrent embolism. Center INR SHOULD BE USED ONLY FOR PATIENTS ON STABLE ANTICOAGULANT THERAPY. CHEMISTRY U Potassium 31.2 meq/L 11/30 NA 14Interpretiv e Data: No Medical established Center reference ranges. CHEMISTRY U Sodium 87 meq/L 11/30 NA 13Interpretiv e Data: No [facility] established Center reference ranges. CHEMISTRY U Chloride 134 meq/L 11/30 NA [facility] CHEMISTRY Bili Total 0.4 mg/dL 0.2 - 1.3 11/30 Normal [facility] CHEMISTRY Total Protein 6.3 g/dL 6.4 - 8.4 11/30 LOW [facility] CHEMISTRY Albumin Lvl 2.9 g/dL 3.5 - 5.0 11/30 LOW [facility] CHEMISTRY Alk Phos 127 unit/L 39 - 136 11/30 Normal [facility] CHEMISTRY Bili Direct 0.2 mg/dL 0.0 - 0.3 11/30 Normal [facility] CHEMISTRY AST 22 unit/L 0 - 37 11/30 Normal [facility] CHEMISTRY ALT 20 unit/L 0 - 65 11/30 Normal [facility] CHEMISTRY A/G Ratio 0.9 0.7 - 1.6 11/30 Normal [facility] CHEMISTRY Bili Indirect 0.2 mg/dL 0.0 - 1.0 11/30 Normal [facility] CHEMISTRY Globulin 3.4 g/dL 2.0 - 4.0 11/30 Normal [facility] HEMATOLOGY Basophils # 0.1 K/CMM 0.0 - 0.2 11/30 Normal [facility] HEMATOLOGY PT 13.9 s 12.0 - 11/30 Normal [facility] 14.7 [facility] HEMATOLOGY PTT 26.5 s 22.9 - 11/30 Normal 19Interpretiv [facility] 35.8 /2012 e Data: [facility] Heparin Center Therapeutic Range: 57 - 92 Seconds HEMATOLOGY INR 1.05 0.85 - 11/30 Normal 17Interpretive Data: RECOMMENDED RANGES FOR PROTIME INR: [facility] . 2.0-3.0 for most medical and surgical thromboembolic states. Medical 2.5-3.5 for artificial heart valves and recurrent embolism. Center INR SHOULD BE USED ONLY FOR PATIENTS ON STABLE ANTICOAGULANT THERAPY. CHEMISTRY POC V Temp 37.0 Abby 11/29 NA [facility] CHEMISTRY POC V Ion Ca [...] mmol/L -2-2 - 2 11/29 LOW Medical Center CHEMISTRY POC V pH 7.42 7.28 - 11/29 Normal 7.42 Medical Center CHEMISTRY POC V PCO2 31 mm[Hg] 38 - 52 11/29 LOW [facility] CHEMISTRY POC V PO2 51 mm[Hg] 20 - 49 11/29 HI Medical Center CHEMISTRY POC V HCO3 20 mmol/L 22 - 26 11/29 LOW [facility] CHEMISTRY Troponin-I 0.05 ng/mL 0.00 - 11/29 Normal [facility] 0.40 Medical Center CHEMISTRY Total CK 46 unit/L 12 - 191 11/29 Normal Medical Center CHEMISTRY Troponin-T null 0.000 - 11/29 Normal [facility] 0.100 Medical Center CHEMISTRY Ketone 4.63 <=0.27 11/29 HI [place] Quantitative mmol/L /2012 Medical Center CHEMISTRY POC A Ca Ion [...] CHEMISTRY POC A Source ART 11/29 NA [facility] CHEMISTRY POC A O2 Sat 98.0 % 95.0 - 11/29 Normal [facility] 100.0 [facility] CHEMISTRY POC A BE -11 mMol/L -2-2 - 2 11/29 LOW [facility] CHEMISTRY POC A HCO3 14 mMol/L 22 - 11/29 LOW [facility] CHEMISTRY POC A PCO2 26 mm[Hg] 35 - 45 11/29 CRIT [facility] CHEMISTRY POC A PO2 115 mm[Hg] 80 - 100 11/29 HI [facility] CHEMISTRY POC A pH 7.33 7.35 - 11/29 LOW [facility] 7.45 [facility] BACTERIAL - MRSA by PCR Positive 1, 2 11/29 ABN 2Interpretive Data: Interpretive Data: The [employer] MRSA assay is a qualitative test for the direct detection of nasal colonization with methicillin-resistant Staphylococcus aureus (MRSA) to aid [facility] in the prevention and control of [...] CHEMISTRY Temp Art 37.0 Abby 11/29 NA [facility] CHEMISTRY O2 Sat Art 96.6 % 95.0 - 11/29 Normal [facility] 100.0 [facility] CHEMISTRY pO2 Art 96 mm[Hg] 80 - 100 11/29 Normal [facility] CHEMISTRY pCO2 Art 25 mm[Hg] 35 - 45 11/29 CRIT 15Result Comment: Medical Critical Center Result(s) called to jose rodriguez at _11/29/2012 12:25:56 CDT bykak_. Read back OK. CHEMISTRY BE Art -12 mMol/L -2-2 - 2 11/29 LOW [facility] CHEMISTRY HCO3 Art 12 mMol/L - 11/29 LOW [facility] CHEMISTRY pH Art 7.30 7.35 - 11/29 LOW [facility] 7.45 [facility] CHEMISTRY A/G Ratio 0.8 0.7 - 1.6 11/29 Normal [facility] CHEMISTRY Globulin 4.0 g/dL 2.0 - 4.0 11/29 Normal [facility] CHEMISTRY AST 17 unit/L 0 - 37 11/29 Normal [facility] CHEMISTRY Bili Total 0.8 mg/dL 0.2 - 1.3 11/29 Normal [facility] CHEMISTRY B/C Ratio 14 - 11/29 Normal [facility] CHEMISTRY Total Protein 7.4 g/dL 6.4 - 8.4 11/29 Normal [facility] CHEMISTRY ALT 22 unit/L 0 - 65 11/29 Normal [facility] CHEMISTRY Albumin Lvl 3.4 g/dL 3.5 - 5.0 11/29 LOW [facility] CHEMISTRY Alk Phos 126 unit/L 39 - 136 11/29 Normal [facility] CHEMISTRY Troponin-I null 0.00 - 11/29 Normal [facility] 0.40 [facility] CHEMISTRY Lipase Lvl 70 unit/L 73 - 393 11/29 LOW [facility] CHEMISTRY B/C Ratio 10 6 - 11/29 Normal [facility] HEMATOLOGY Hypochrom Slight None Seen 11/29 Normal [facility] (11/28/2012 21:00:20) Center HEMATOLOGY Polychrom Slight None Seen 11/29 Normal [facility] (11/28/2012 21:00:20) Center HEMATOLOGY Anisocyte 1+ None Seen 11/29 ABN Medical *ABN* Center (11/28/2012 21:00:20) HEMATOLOGY Large Plt Slight None Seen 11/29 [facility] Medical *ABN* Center (11/28/2012 21:00:20) HEMATOLOGY Eosinophils # 0.2 K/CMM 0.0 - 0.5 11/29 Normal [facility] CHEMISTRY U Preg Negative Negative 11/29 Normal [facility] (11/28/2012 20:55:00) Center URINALYSIS UA Blood Negative Negative 11/29 Normal [facility] (11/28/2012 20:55:00) [facility] URINALYSIS UA Bili Small 6 Negative 11/29 ABN 6Result Comment: Interpret positive bilirubin results with caution. Confirmatory testing not possible due to the unavailability of reagent. Correlation with Medical *ABN* serum chemistry results recommended. [facility] (11/28/2012 20:55:00) URINALYSIS UA Protein Negative Negative 11/29 Normal [facility] (11/28/2012 20:55:00) [facility] URINALYSIS Micro? Not Indicated 11/29 Normal [facility] (11/28/2012 20:55:00) [facility] URINALYSIS UA Glucose Negative Negative 11/29 Normal [facility] (11/28/2012 20:55:00) [facility] URINALYSIS UA Ketones 40 mg/dL Negative 11/29 ABN Medical *ABN* [facility] (11/28/2012 20:55:00) URINALYSIS UA Leuk Est Negative Negative 11/29 Normal [facility] (11/28/2012 20:55:00) [facility] URINALYSIS UA 0.2 EU/dL 0.1 - 1.0 11/29 Normal [facility] Urobilinogen /2012 [facility] URINALYSIS UA Nitrite Negative Negative 11/29 Normal [facility] (11/28/2012 20:55:00) [facility] URINALYSIS UA Spec Grav 1.010 <=1.030 11/29 Normal [facility] URINALYSIS UA pH 6.0 5.0 - 8.0 11/29 Normal [facility] URINALYSIS UA Color Yellow Yellow 11/29 NA Medical *NA* [facility] (11/28/2012 20:55:00) URINALYSIS UA Turbidity Clear Clear 11/29 Normal Medical (11/28/2012 20:55:00) Center BEDSIDE Comment1 Notify 11/17 NA [facility] GLUCOSE RN/ /2012 Medical TESTING Center BEDSIDE Gluc POC 219 mg/dL 70 - 99 11/17 HI 1Interpretive [facility] Center Upper Reportable Limit: 200 mg/dL. BEDSIDE Gluc POC 255 mg/dL 70 - 99 11/17 HI 2Interpretive [facility] GLUCOSE [place] Data: Medical TESTING Center Upper Reportable Limit: 200 mg/dL. BEDSIDE Comment1 Notify 11/17 NA [facility] GLUCOSE RN/MD /2012 [facility] Center CHEMISTRY Troponin-T null 0.000 - 11/17 Normal [facility] 0.100 [facility] CHEMISTRY Troponin-I null 0.00 - 11/17 Normal [facility] 0.40 [facility] CHEMISTRY Total CK 52 unit/L 12 - 191 11/17 Normal [facility] CHEMISTRY eGFR 109 11/17 NA 4Result Comment: The eGFR is calculated using the CKD-EPI formula. In most young, healthy individuals the eGFR will be > 90 mL/min/1.73m2. The eGFR declines with age. An eGFR of 60-89 may be normal in [facility] mL/min/1.7 some populations, particularly the elderly, for whom the CKD-EPI formula has not been extensively validated. Use of the eGFR is not recommended in the following populations: Medical [facility] Individuals with unstable creatinine concentrations, including [...] 7.7 mg/dL 8.5 - 10.5 11/17 LOW [facility] CHEMISTRY AGAP 16.2 meq/L 10.0 - 11/17 Normal [facility] 20.0 [facility] CHEMISTRY Chloride Lvl 100 meq/L 95 - 109 11/17 Normal [facility] CHEMISTRY Potassium Lvl 4.2 meq/L 3.5 - 5.1 11/17 Normal [facility] CHEMISTRY Sodium Lvl 134 meq/L 135 - 145 11/17 LOW [facility] CHEMISTRY CO2 22 meq/L 24 - 32 11/17 [facility] CHEMISTRY Creatinine 0.6 mg/dL 0.5 - 1.4 11/17 Normal [facility] CHEMISTRY BUN 4 mg/dL 7 - 22 11/17 [facility] CHEMISTRY Glucose Lvl 237 mg/dL 70 - 99 11/17 HI 6Interpretive Data: Adult reference range values reflect the clinical guidelines of the [employer]. Medical Center CHEMISTRY Magnesium Lvl 1.4 mg/dL 1.8 - 2.4 11/17 LOW [facility] CHEMISTRY Phosphorus 3.4 mg/dL 2.5 - 4.5 11/17 Normal [facility] HEMATOLOGY Segs 60.3 % 45.0 - 11/17 Normal [facility] 75.0 [facility] HEMATOLOGY Monocytes 9.0 % 2.0 - 12.0 11/17 Normal [facility] HEMATOLOGY Lymphocytes 27.8 % 20.0 - 11/17 Normal [facility] 40.0 [facility] HEMATOLOGY Eosinophils 2.1 % 0.0 - 4.0 11/17 Normal [facility] HEMATOLOGY Lymphocytes # 2.3 K/CMM 1.0 - 5.5 11/17 Normal [facility] HEMATOLOGY Eosinophils # 0.2 K/CMM 0.0 - 0.5 11/17 Normal [facility] HEMATOLOGY Basophils 0.8 % 0.0 - 1.0 11/17 Normal [facility] HEMATOLOGY Segs-Bands # 5.1 K/CMM 1.5 - 8.1 11/17 Normal [facility] HEMATOLOGY Basophils # 0.1 K/CMM 0.0 - 0.2 11/17 Normal [facility] HEMATOLOGY Monocytes # 0.8 K/CMM 0.0 - 0.8 11/17 Normal [facility] HEMATOLOGY Microcyte 1+ None Seen 11/17 ABN Medical *ABN* Center (11/17/2012 04:33:00) HEMATOLOGY INR 1.09 0.85 - 11/17 Normal 8Interpretive Data: RECOMMENDED RANGES FOR PROTIME INR: [facility] . 2.0-3.0 for most medical and surgical thromboembolic states. Medical 2.5-3.5 for artificial heart valves and recurrent embolism. Center INR SHOULD BE USED ONLY FOR PATIENTS ON STABLE ANTICOAGULANT THERAPY. HEMATOLOGY PT 14.3 s 12.0 - 11/17 Normal [facility] 14.7 [facility] HEMATOLOGY PTT 31.8 s 22.9 - 11/17 Normal 9Interpretive [facility] 35.8 Data: [facility] Range: 57 - 92 Seconds HEMATOLOGY Platelet 177 K/CMM 133 - 450 11/17 Normal [facility] HEMATOLOGY MPV 9.5 fL 7.4 - 10.4 11/17 Normal Medical [facility] HEMATOLOGY MCH 24.5 pg 27.0 - 11/17 LOW [facility] 31.0 /2012 Medical [facility] HEMATOLOGY RDW 18.9 % 11.5 - 11/17 HI [place] 14.5 /2012 Medical Center HEMATOLOGY MCHC 32.3 g/dL 32.0 - 11/17 Normal [facility] 36.0 /2012 Medical [place] HEMATOLOGY MCV 75.9 fL 81.0 - 11/17 [facility] 99.0 /2012 Medical [place] HEMATOLOGY RBC 3.67 M/CMM 4.20 - 11/17 [facility] 5.40 /2012 Medical Center HEMATOLOGY WBC 8.4 K/CMM 3.7 - 10.4 11/17 Normal [facility] HEMATOLOGY Hct 27.9 % 36.0 - 11/17 [facility] 48.0 /2012 [facility] HEMATOLOGY Hgb 9.0 g/dL 12.0 - 11/17 [facility] 16.0 [facility] CHEMISTRY Troponin-T null 0.000 - 11/17 Normal [facility] 0.100 [facility] CHEMISTRY Troponin-I null 0.00 - 11/17 Normal [facility] 0.40 [facility] CHEMISTRY Total CK 76 unit/L 11/17 Normal [facility] CHEMISTRY CK MB Index 0.8 0.0 - 2.5 11/17 Normal [facility] CHEMISTRY CK MB 0.6 ng/mL 0.5 - 3.6 11/17 Normal [facility] BEDSIDE Gluc POC 305 mg/dL 70 - 99 11/17 [facility] 3Interpretive [facility] GLUCOSE [employer] Data: Medical TESTING Center Upper Reportable Limit: 200 mg/dL. BEDSIDE Comment1 Notify 11/17 NA [facility] GLUCOSE RN/MD /2012 Medical TESTING Center CHEMISTRY Magnesium Lvl 1.4 mg/dL 1.8 - 2.4 11/16 LOW [facility] CHEMISTRY Total CK 27 unit/L 11/16 Normal [facility] CHEMISTRY Troponin-T null 0.000 - 11/16 Normal [facility] 0.100 [facility] CHEMISTRY Troponin-I null 0.00 - 11/16 Normal [facility] 0.40 [facility] Center CHEMISTRY B/C Ratio 6 6 - 25 11/16 Normal [facility] CHEMISTRY A/G Ratio 1.0 0.7 - 1.6 11/16 Normal [facility] CHEMISTRY AGAP 18.6 meq/L 10.0 - 11/16 Normal [facility] 20.0 [facility] CHEMISTRY Globulin 3.5 g/dL 2.0 - 4.0 11/16 Normal [facility] CHEMISTRY eGFR 67 11/16 NA 5Result Comment: The eGFR is calculated using the CKD-EPI formula. In most young, healthy individuals the eGFR will be > 90 mL/min/1.73m2. The eGFR declines with age. An eGFR of 60-89 may be normal in [facility] mL/min/1.7 some populations, particularly the elderly, for whom the CKD-EPI formula has not been extensively validated. Use of the eGFR is not recommended in the following populations: [address] Individuals with unstable creatinine concentrations, including [...] 3.4 g/dL 3.5 - 5.0 11/16 LOW [facility] CHEMISTRY Alk Phos 88 unit/L 39 - 136 11/16 Normal [facility] CHEMISTRY Glucose Lvl 256 mg/dL 70 - 99 11/16 [place] 7Interpretive Data: Adult reference range values reflect the clinical guidelines of the [employer]. [facility] CHEMISTRY BUN 6 mg/dL 7 - 22 11/16 LOW [facility] CHEMISTRY Sodium Lvl 136 meq/L 135 - 145 11/16 Normal [facility] CHEMISTRY Chloride Lvl 99 meq/L 95 - 109 11/16 Normal [facility] CHEMISTRY Creatinine 1.0 mg/dL 0.5 - 1.4 11/16 Normal [facility] CHEMISTRY Potassium Lvl 3.6 meq/L 3.5 - 5.1 11/16 Normal [facility] CHEMISTRY CO2 22 meq/L 24 - 32 11/16 LOW [facility] CHEMISTRY Calcium Lvl 8.8 mg/dL 8.5 - 10.5 11/16 Normal [facility] CHEMISTRY Bili Total 0.6 mg/dL 0.2 - 1.3 11/16 Normal [facility] CHEMISTRY Total Protein 6.9 g/dL 6.4 - 8.4 11/16 Normal [facility] CHEMISTRY AST 52 unit/L 0 - 37 11/16 HI [facility] CHEMISTRY ALT 52 unit/L 0 - 65 11/16 Normal [facility] CHEMISTRY Phosphorus 1.6 mg/dL 2.5 - 4.5 11/16 LOW [facility] HEMATOLOGY Lymphocytes 16.8 % 20.0 - 11/16 LOW [facility] 40.0 [facility] HEMATOLOGY Segs 72.3 % 45.0 - 11/16 Normal [facility] 75. [facility] HEMATOLOGY Large Plt Slight None Seen 11/16 [facility] (11/16/2012 13:17:00) HEMATOLOGY Elliptocyte Slight None Seen 11/16 [facility] (11/16/2012 13:17:00) HEMATOLOGY Polychrom Slight None Seen 11/16 Normal [facility] (11/16/2012 13:17:00) Center HEMATOLOGY Microcyte 1+ None Seen 11/16 [facility] (11/16/2012 13:17:00) HEMATOLOGY Basophils # 0.1 K/CMM 0.0 - 0.2 11/16 Normal [facility] HEMATOLOGY Hypochrom Slight None Seen 11/16 [facility] (11/16/2012 13:17:00) Center HEMATOLOGY Anisocyte 1+ None Seen 11/16 [facility] (11/16/2012 13:17:00) HEMATOLOGY Schistocyte Occasional 11/16 NA [facility] HEMATOLOGY Monocytes 8.6 % 2.0 - 12.0 11/16 Normal [facility] HEMATOLOGY Eosinophils 1.5 % 0.0 - 4.0 11/16 Normal [facility] HEMATOLOGY Monocytes # 1.1 K/CMM 0.0 - 0.8 11/16 HI [facility] HEMATOLOGY Segs-Bands # 9.7 K/CMM 1.5 - 8.1 11/16 [facility] Medical Center HEMATOLOGY Eosinophils # 0.2 [...] HEMATOLOGY RDW 18.0 % 11.5 - 11/16 [facility] 14.5 /2012 Medical Center HEMATOLOGY Hct 32.4 % 36.0 - 11/16 LOW [facility] 48.0 /2012 Medical Center HEMATOLOGY MCHC 33.3 g/dL 32.0 - 11/16 Normal [facility] 36.0 /2012 Medical Center HEMATOLOGY MCV 75.4 fL 81.0 - 11/16 LOW [facility] 99.0 /2012 Medical Center HEMATOLOGY MCH 25.1 pg 27.0 - 11/16 [facility] 31.0 /2012 Medical Center HEMATOLOGY Platelet 230 K/CMM 133 - 450 11/16 Normal [facility] HEMATOLOGY MPV 9.9 fL 7.4 - 10.4 11/16 Normal [facility] BEDSIDE Comment1 Notify 11/14 NA Fei GLUCOSE MARTÍNEZ/ /2012 Medical TESTING Center BEDSIDE Gluc POC 266 mg/dL 11/14 HI 2Interpretive [facility] GLUCOSE Lifsc Data: Medical TESTING Center Upper Reportable Limit: 200 mg/dL. BEDSIDE Comment1 Notify 11/14 NA [facility]i GLUCOSE MARTÍNEZ/ /2012 [facility] BEDSIDE Gluc POC 140 mg/dL - 11/14 HI 3Interpretive [facility] GLUCOSE Lifsc Data: [facility]ING Center Upper Reportable Limit: 200 mg/dL. BEDSIDE Comment1 Notify 11/14 NA Fei GLUCOSE MARTÍNEZ/ /2012 [facility] BEDSIDE Gluc POC 201 mg/dL 70 - 11/14 HI 4Interpretive [facility] GLUCOSE Lifsc Data: [facility]ING Center Upper Reportable Limit: 200 mg/dL. CHEMISTRY A/G Ratio 0.9 0.7 - 1.6 11/14 Normal [facility] CHEMISTRY AST 41 unit/L 0 - 37 11/14 HI [facility] CHEMISTRY eGFR 104 11/14 NA 6Result Comment: The eGFR is calculated using the CKD-EPI formula. In most young, healthy individuals the eGFR will be > 90 mL/min/1.73m2. The eGFR declines with age. An eGFR of 60-89 may be normal in [facility] mL/min/1.7 /2012 some populations, particularly the elderly, for whom the CKD-EPI formula has not been extensively validated. Use of the eGFR is not recommended in the following populations: [address] Individuals with unstable creatinine concentrations, including [...] 2.9 g/dL 3.5 - 5.0 11/14 LOW [facility] CHEMISTRY Alk Phos 84 unit/L 39 - 136 11/14 Normal [facility] CHEMISTRY BUN 3 mg/dL 7 - 22 11/14 LOW [facility] CHEMISTRY Creatinine 0.7 mg/dL 0.5 - 1.4 11/14 Normal [facility] CHEMISTRY Sodium Lvl 136 meq/L 135 - 145 11/14 Normal [facility] CHEMISTRY Total Protein 6.3 g/dL 6.4 - 8.4 11/14 LOW [facility] CHEMISTRY ALT 51 unit/L 0 - 65 11/14 Normal [facility] CHEMISTRY Potassium Lvl 3.7 meq/L 3.5 - 5.1 11/14 Normal [facility] CHEMISTRY Chloride Lvl 101 meq/L 95 - 109 11/14 Normal [facility] CHEMISTRY Glucose Lvl 210 mg/dL 70 - 99 11/14 HI 9Interpretive Data: Adult reference range values reflect the clinical guidelines of the [employer]. [facility] Center CHEMISTRY AGAP 15.7 meq/L 10.0 - 11/14 Normal [place] 20.0 [facility] CHEMISTRY B/C Ratio 4 6 - 25 11/14 LOW [facility] CHEMISTRY Globulin 3.4 g/dL 2.0 - 4.0 11/14 Normal [facility] CHEMISTRY CO2 23 meq/L 24 - 32 11/14 LOW [facility] CHEMISTRY Bili Total 0.4 mg/dL 0.2 - 1.3 11/14 Normal [facility] CHEMISTRY Calcium Lvl 8.5 mg/dL 8.5 - 10.5 11/14 Normal [facility] CHEMISTRY Phosphorus 3.6 mg/dL 2.5 - 4.5 11/14 Normal [facility] CHEMISTRY Magnesium Lvl 1.5 mg/dL 1.8 - 2.4 11/14 LOW [facility] CHEMISTRY Ca Norm mgdL 3.52 mg/dL 4.65 - 11/14 LOW [facility] 5. [facility] CHEMISTRY Ca Ion mgdL 3.32 mg/dL 4.65 - 11/14 CRIT [place] 5. [facility] CHEMISTRY Ca Ion 0.83 1.16 - 11/14 CRIT 15Result [place] mMol/L 1. Comment: Medical Critical Center Result(s) called to Arlin Rose at 11/14/2012 00:23:56 CDT_ by_tvs. Read back OK. CHEMISTRY Ca Norm 0.88 1.16 - 11/14 CRIT [place] mMol/L 1. [facility] HEMATOLOGY Platelet 221 K/CMM 133 - 450 11/14 Normal [facility] HEMATOLOGY RDW 19.0 % 11.5 - 03 HI [place] 14.5 /2012 Medical Center HEMATOLOGY MCHC 32.4 g/dL 32.0 - 11/14 Normal [place] 36.0 [facility] HEMATOLOGY MCV 75.5 fL 81.0 - 11/14 LOW [place] 99.0 /2012 [facility] HEMATOLOGY Hct 35.5 % 36.0 - 11/14 LOW [place] 48.0 /2012 [facility] HEMATOLOGY Hgb 11.5 g/dL 12.0 - 11/14 LOW [place] 16.0 Medical [facility] HEMATOLOGY MCH 24.5 pg 27.0 - 11/14 LOW [place] 31.0 [facility] HEMATOLOGY MPV 9.1 fL 7.4 - 10.4 11/14 Normal [facility] HEMATOLOGY RBC 4.70 M/CMM 4.20 - 03 Normal [place] 5.40 /2012 [facility] HEMATOLOGY WBC 8.6 K/CMM 3.7 - 10.4 11/14 Normal [facility] HEMATOLOGY Segs 53.3 % 45.0 - 11/14 Normal [facility] 75.0 /2012 [facility] HEMATOLOGY Microcyte 1+ None Seen 11/14 ABN [facility] *ABN* Center (11/13/2012 23:45:00) HEMATOLOGY Basophils # 0.1 K/CMM 0.0 - 0.2 11/14 Normal [facility] HEMATOLOGY Eosinophils # 0.2 K/CMM 0.0 - 0.5 11/14 Normal [facility] HEMATOLOGY Monocytes # 0.9 K/CMM 0.0 - 0.8 11/14 HI [facility] HEMATOLOGY Lymphocytes # 2.9 K/CMM 1.0 - 5.5 11/14 Normal [facility] HEMATOLOGY Monocytes 10.3 % 2.0 - 12.0 11/14 Normal [facility] HEMATOLOGY Lymphocytes 33.6 % 20.0 - 11/14 Normal [facility] 40.0 [facility] HEMATOLOGY Segs-Bands # 4.6 K/CMM 1.5 - 8.1 11/14 Normal [facility] HEMATOLOGY Basophils 0.7 % 0.0 - 1.0 11/14 Normal [facility] HEMATOLOGY Eosinophils 2.1 % 0.0 - 4.0 11/14 Normal [facility] CHEMISTRY Lipase Lvl 43 unit/L 73 - 393 11/13 LOW [facility] CHEMISTRY Amylase Lvl 14 unit/L 25 - 115 11/13 [facility] CHEMISTRY A/G Ratio 0.8 0.7 - 1.6 11/13 Normal [facility] CHEMISTRY AST 56 unit/L 0 - 37 11/13 HI [facility] CHEMISTRY Alk Phos 67 unit/L 39 - 136 11/13 Normal [facility] CHEMISTRY Globulin 2.9 g/dL 2.0 - 4.0 11/13 Normal [facility] CHEMISTRY Total Protein 5.3 g/dL 6.4 - 8.4 11/13 LOW [facility] Center CHEMISTRY Albumin Lvl 2.4 g/dL 3.5 - 5.0 11/13 LOW [facility] CHEMISTRY ALT 41 unit/L 0 - 65 11/13 Normal [facility] CHEMISTRY Bili Indirect 0.3 mg/dL 0.0 - 1.0 11/13 Normal [facility] CHEMISTRY Bili Direct 0.1 mg/dL 0.0 - 0.3 11/13 Normal [facility] CHEMISTRY Bili Total 0.4 mg/dL 0.2 - 1.3 11/13 Normal [facility] CHEMISTRY eGFR 137 11/13 NA 7Result Comment: The eGFR is calculated using the CKD-EPI formula. In most young, healthy individuals the eGFR will be > 90 mL/min/1.73m2. The eGFR declines with age. An eGFR of 60-89 may be normal in [facility] mL/min/1. some populations, particularly the elderly, for whom the CKD-EPI formula has not been extensively validated. Use of the eGFR is not recommended in the following populations: [address] Individuals with unstable creatinine concentrations, including [...] AGAP 17.3 meq/L 10.0 - 11/13 Normal [facility] 20.0 [facility] Center CHEMISTRY Calcium Lvl 6.7 mg/dL 8.5 - 10.5 11/13 CRIT 13Result Comment: [facility] Critical Center Result(s) called to tino gustafson at _11/13/2012 06:59:47 CDT bylg. Read back OK. CHEMISTRY CO2 17 meq/L 24 - 32 11/13 LOW [facility] Center CHEMISTRY Chloride Lvl 111 meq/L 95 - 109 11/13 HI Medical Center CHEMISTRY Potassium Lvl 3.3 meq/L 3.5 - 5.1 11/13 LOW 5Result Comment: Medical Specimen Center Slightly Hemolyzed. CHEMISTRY Sodium Lvl 142 meq/L 135 - 145 03 Normal [facility] Center CHEMISTRY Creatinine 0.3 mg/dL 0.5 - 1.4 11/13 LOW [place] Lvl /2012 Medical Center CHEMISTRY BUN 3 mg/dL 7 - 22 11/13 LOW [facility] CHEMISTRY Glucose Lvl 104 mg/dL 70 - 99 11/13 HI 10Interpretive Data: Adult reference range values reflect the clinical guidelines of the [place] [employer]. Medical Center CHEMISTRY Magnesium Lvl 1.3 mg/dL 1.8 - 2.4 11/13 LOW [facility] CHEMISTRY Phosphorus 2.8 mg/dL 2.5 - 4.5 11/13 Normal [facility] CHEMISTRY Ca Ion 1.01 1.16 - 11/13 [facility] [place] mMol/L 1. [facility] CHEMISTRY Ca Norm 1.07 1.16 - 11/13 [facility] mMol/L 1. [facility] Center CHEMISTRY Ca Norm mgdL 4.28 mg/dL 4.65 - 11/13 [facility] [place] . [facility] CHEMISTRY Ca Ion mgdL 4.04 mg/dL 4.65 - 11/13 [facility] 5.20 Medical Center HEMATOLOGY MCV 78.6 fL 81.0 - 11/13 [facility] [place] 99.0 /2012 [facility] HEMATOLOGY MPV 9.1 fL 7.4 - 10.4 11/13 Normal [facility] HEMATOLOGY MCHC 31.1 g/dL 32.0 - 11/13 [facility] [place] 36.0 [facility] HEMATOLOGY MCH 24.4 pg 27.0 - 11/13 [facility] [place] 31.0 Medical Center HEMATOLOGY Hct 29.4 % 36.0 - 03 [facility] [place] 48.0 /2012 Medical Center HEMATOLOGY RDW 19.1 % 11.5 - 0310 [facility] [place] 14.5 /2012 Medical Center HEMATOLOGY Platelet 192 K/CMM 133 - 450 11/13 Normal [facility] HEMATOLOGY Hgb 9.1 g/dL 12.0 - 03 [facility] [place] 16.0 Medical [facility] HEMATOLOGY RBC 3.74 M/CMM 4.20 - 03 [facility] [place] 5.40 /2012 Medical Center HEMATOLOGY WBC 6.8 K/CMM 3.7 - 10.4 03 Normal MH [facility] HEMATOLOGY Plt Morph Normal 11/13 Normal Medical (11/13/2012 05:00:00) [facility] HEMATOLOGY Atypical 0.0 % <=0.0 11/13 Normal [facility] Lymphs [facility] HEMATOLOGY RBC Morph Normal 11/13 Normal [facility] (11/13/2012 05:00:00) [facility] HEMATOLOGY Eosinophils 2.0 % 0.0 - 4.0 11/13 Normal [facility] HEMATOLOGY Bands 0.0 % 0.0 - 11.0 11/13 Normal [facility] HEMATOLOGY Segs 51.0 % 45.0 - 11/13 Normal [place] 75.0 [facility] HEMATOLOGY Eosinophils # 0.1 K/CMM 0.0 - 0.5 11/13 Normal [facility] HEMATOLOGY Segs-Bands # 3.5 K/CMM 1.5 - 8.1 11/13 Normal [facility] HEMATOLOGY Monocytes 5.0 % 2.0 - 12.0 11/13 Normal [facility] HEMATOLOGY Lymphocytes 42.0 % 20.0 - 11/13 HI [facility] 40.0 [facility] HEMATOLOGY Monocytes # 0.3 K/CMM 0.0 - 0.8 11/13 Normal [facility] HEMATOLOGY Lymphocytes # 2.9 K/CMM 1.0 - 5.5 11/13 [facility] INFECTIOUS C difficile Negative 1 Negative 11/13 Normal 1Interpretive Data: [employer] illumigene Clostridium difficile assay utilizes loop-mediated isothermal DNA amplification (LAMP) technology to detect a 204 bp region of the tcdA gene within the PaLoc gene [facility] segment present in all known toxigenic C. difficile strains. [facility] (11/12/2012 21:54:26) [facility] The assay utilizes FDA cleared IVD reagents. Performance characteristics have been verified by the [facility] within the [facility]. The [facility] is authorized under the Clinical Laboratory Improvement Amendment of 1988 (CLIA-88) to perform high complexity testing. CHEMISTRY Total CK 25 unit/L 12 - 191 11/12 Normal [facility] CHEMISTRY Troponin-I null 0.00 - 11/12 Normal [facility] 0.40 [facility] CHEMISTRY eGFR 88 11/12 NA 8Result Comment: The eGFR is calculated using the CKD-EPI formula. In most young, healthy individuals the eGFR will be > 90 mL/min/1.73m2. The eGFR declines with age. An eGFR of 60-89 may be normal in [facility] mL/min/1. some populations, particularly the elderly, for whom the CKD-EPI formula has not been extensively validated. Use of the eGFR is not recommended in the following populations: Medical [facility] Individuals with unstable creatinine concentrations, including [...] AGAP 13.7 meq/L 10.0 - 11/12 Normal [facility] 20.0 [facility] CHEMISTRY Calcium Lvl 8.5 mg/dL 8.5 - 10.5 11/12 Normal [facility] CHEMISTRY CO2 25 meq/L 24 - 32 11/12 Normal [facility] CHEMISTRY Potassium Lvl 3.7 meq/L 3.5 - 5.1 11/12 Normal [facility]2012 [facility] CHEMISTRY Sodium Lvl 138 meq/L 135 - 145 11/12 Normal [facility] CHEMISTRY Chloride Lvl 103 meq/L 95 - 109 11/12 Normal [facility] CHEMISTRY Creatinine 0.8 mg/dL 0.5 - 1.4 11/12 Normal [facility] CHEMISTRY BUN 5 mg/dL 7 - 22 11/12 LOW [facility] CHEMISTRY Glucose Lvl 40 mg/dL 70 - 99 11/12 CRIT 12Interpretive Data: Adult reference range values reflect the clinical guidelines of the [employer]. [facility] CHEMISTRY Ca Norm mgdL 4.20 mg/dL 4.65 - 11/12 LOW [facility] 01.23 [facility] CHEMISTRY Ca Norm 1.05 1.16 - 11/12 LOW [place] mMol/L 10.05 [facility] CHEMISTRY Ca Ion mgdL 4.00 mg/dL 4.65 - 11/12 LOW [facility] 01.23 [facility] CHEMISTRY Ca Ion 1.00 1.16 - 11/12 LOW [facility] [place] mMol/L 10.052013 [facility] CHEMISTRY Magnesium Lvl 1.9 mg/dL 1.8 - 2.4 11/12 Normal [facility] CHEMISTRY Phosphorus 3.2 mg/dL 2.5 - 4.5 11/12 Normal [facility] HEMATOLOGY MCHC 32.0 g/dL 32.0 - 11/12 Normal [facility] 36.0 /2012 [facility] HEMATOLOGY MCH 24.1 pg 27.0 - 11/12 LOW [facility] 31.0 [facility] HEMATOLOGY MCV 75.3 fL 81.0 - 03 LOW [facility] 99.0 /2012 [facility] HEMATOLOGY WBC 9.2 K/CMM 3.7 - 10.4 11/12 Normal [facility] HEMATOLOGY Platelet 233 K/CMM 133 - 450 11/12 Normal [facility] HEMATOLOGY MPV 9.1 fL 7.4 - 10.4 11/12 Normal [facility] HEMATOLOGY RDW 19.0 % 11.5 - 03 HI [facility] 14.5 [facility] HEMATOLOGY RBC 4.19 M/CMM 4.20 - 11/12 [facility] 5.40 /2012 [facility] HEMATOLOGY Hgb 10.1 g/dL 12.0 - 11/12 LOW [facility] 16.0 [facility] HEMATOLOGY Hct 31.6 % 36.0 - 03 [facility] 48.0 /2012 [facility] HEMATOLOGY Hypochrom Slight None Seen 11/12 Normal [facility] (11/12/2012 00:19:00) Center HEMATOLOGY Large Plt Slight None Seen 11/12 ABN Medical *ABN* Center (11/12/2012 00:19:00) HEMATOLOGY Atypical 0.0 % <=0.0 11/12 Normal [facility] Lymphs [facility] HEMATOLOGY Basophils 1.0 % 0.0 - 1.0 11/12 Normal [facility] HEMATOLOGY Lymphocytes 39.0 % 20.0 - 03 [facility] 40.0 [facility] HEMATOLOGY Bands 0.0 % 0.0 - 11.0 11/12 Normal [facility] HEMATOLOGY Eosinophils 2.0 % 0.0 - 4.0 11/12 Normal [facility] HEMATOLOGY Monocytes 6.0 % 2.0 - 12.0 11/12 Normal [facility] HEMATOLOGY Segs 52.0 % 45.0 - 03 Normal [place] 75.0 [facility] HEMATOLOGY Basophils # 0.1 K/CMM 0.0 - 0.2 11/12 Normal 2012 [facility] HEMATOLOGY Monocytes # 0.6 K/CMM 0.0 - 0.8 11/12 Normal [facility] HEMATOLOGY Lymphocytes # 3.6 K/CMM 1.0 - 5.5 11/12 Normal 2012 [facility] HEMATOLOGY Segs-Bands # 4.8 K/CMM 1.5 - 8.1 11/12 Normal [facility] HEMATOLOGY Eosinophils # 0.2 K/CMM 0.0 - 0.5 11/12 Normal 2012 [facility] HEMATOLOGY Microcyte 1+ None Seen 11/11 [facility] *[facility]* [facility] (11/11/2012 03:41:00) HEMATOLOGY Basophils # 0.1 K/CMM 0.0 - 0.2 11/11 Normal [facility] HEMATOLOGY Basophils 0.7 % 0.0 - 1.0 11/11 Normal [facility] HEMATOLOGY Microcyte 1+ None Seen 11/[address] [facility]* [facility] (11/09/2012 05:12:00) URINALYSIS UA pH 5.0 5.0 - 8.0 11/08 Normal [facility] URINALYSIS UA Protein 20 mg/dL Negative 11/[address] [facility]* [facility] (11/07/2012 20:54:00) URINALYSIS UA Turbidity Slight Clear 11/[address] [facility]* [facility] (11/07/2012 20:54:00) URINALYSIS UA Spec Grav 1.010 <=1.030 11/08 Normal [facility] URINALYSIS UA Color Yellow Yellow 11/08 [facility] (11/07/2012 20:54:00) URINALYSIS UA Bacteria Moderate /HPF None Seen 11/[address] [facility]* [facility] (11/07/2012 20:54:00) URINALYSIS UA Mucus Few /LPF None Seen 11/08 [facility] (11/07/2012 20:54:00) URINALYSIS UA WBC null 0 - 5 11/08 [facility] URINALYSIS UA RBC 4 /HPF 0 - 2 11/08 [facility] URINALYSIS UA Sq Epi Moderate /LPF Few 11/08 [facility] *ABN* Center (11/07/2012 20:54:00) URINALYSIS UA Leuk Est Large Negative 11/08 [facility] *ABN* Center (11/07/2012 20:54:00) URINALYSIS UA Blood Trace Negative 11/08 [facility] *ABN* [facility] (11/07/2012 20:54:00) URINALYSIS UA Nitrite Negative Negative 11/08 Normal [facility] (11/07/2012 20:54:00) Center URINALYSIS UA Ketones 40 mg/dL Negative 11/08 [facility] (11/07/2012 20:54:00) URINALYSIS UA Bili Negative Negative 11/08 [facility] *NA* Center (11/07/2012 20:54:00) URINALYSIS Micro? Performed 11/08 NA [facility] *NA* Center (11/07/2012 20:54:00) URINALYSIS UA <=1.0 0.1 - 1.0 11/08 [facility] Urobilinogen mg/dL Medical
*NA*< Center br/>(11/07 20:54:00) <sup> </sup> URINALYSIS UA Glucose >=1000mg/d 11/08 [facility] URINALYSIS UA Hyal Cast 37 /LPF 0 - 2 11/08 [facility] Center URINALYSIS UA Ketones 40 mg/dL Negative 11/07 [facility] *ABN* Center (11/07/2012 06:24:57) CHEMISTRY Hgb A1C 8.2 % 11/07 NA 14Interpretive Data: HbA1C% eAG( mg/dL) Interpretation 6.0 126 Very good control [facility] 6.5 140 Very good control [facility] 7.0 154 Good Control 7.5 169 Good Control 8.0 183 Marginal Control, take action to lower 8.5 197 Marginal Control, take action to lower 9.0 212 Poor Control, take action to lower 9.5 226 Poor Control, take action to lower 10.0 240 Poor Control, take action to lower CHEMISTRY Ketone 2.20 <=0.27 11/06 HI [place] Quantitative mmol/L /2012 Medical [facility] CHEMISTRY U Osmolality 207 300 - 800 11/06 LOW [facility] mOsm/kg Medical [place] CHEMISTRY POC A %FIO2 21.0 % 18.0 - 03 Normal [facility] 100.0 [facility] [place] CHEMISTRY POC A LA 0.9 mMol/L 0.5 - 2.2 11/06 Normal [facility] CHEMISTRY POC A Glu 281 mg/dL 70 - 99 11/06 [facility] CHEMISTRY POC A Temp 37.0 Abby 11/06 NA [facility] CHEMISTRY POC A Source ART 11/06 [facility] CHEMISTRY POC A pH 7.45 7.35 - 11/06 Normal [facility] 7.45 [facility] CHEMISTRY POC A HCO3 24 mMol/L 22 - 26 11/06 Normal [facility] CHEMISTRY POC A PCO2 35 mm[Hg] 35 - 45 11/06 Normal [facility] CHEMISTRY POC A PO2 85 mm[Hg] 80 - 100 11/06 Normal [facility] CHEMISTRY POC A BE 0 mMol/L -2-2 - 2 11/06 Normal [facility] CHEMISTRY POC A O2 Sat 97.0 % 95.0 - 11/06 [facility] 100.0 [facility] CHEMISTRY POC A Na 123 meq/L 135 - 145 11/06 LOW [facility] CHEMISTRY POC A Hct 31.0 % 36.0 - 11/06 [facility] 48.0 [facility] CHEMISTRY POC A Ca Ion 1.11 1.16 - 03 [facility] mMol/L 1.30 [facility] CHEMISTRY POC A K 3.7 meq/L 3.5 - 5.1 11/06 Normal [facility] CHEMISTRY POC A BE -4 mMol/L -2-2 - 2 11/06 LOW [facility] CHEMISTRY POC A HCO3 20 mMol/L 22 - 26 11/06 LOW [facility] CHEMISTRY POC A Source ART 11/06 NA [facility] CHEMISTRY POC A Temp 37.0 Abby 11/06 NA [facility] CHEMISTRY POC A pH 7.42 7.35 - 03/03 Normal [facility] 7.45 /2012 [facility] CHEMISTRY POC A PO2 81 mm[Hg] 80 - 100 11/06 Normal [facility] CHEMISTRY POC A O2 Sat 96.0 % 95.0 - 11/06 Normal [facility] [facility] 100.0 [facility] CHEMISTRY POC A PCO2 31 mm[Hg] 35 - 45 11/06 LOW [facility] CHEMISTRY POC A %FIO2 21.0 % 18.0 - 03 Normal [facility] 100.0 /2012 [facility] Microbiolog Culture: 11/06 [facility] y Urine /2012 [facility] CHEMISTRY Troponin-I null 0.00 - 11/06 Normal [facility] 0.40 /2012 [facility] CHEMISTRY Troponin-T null 0.000 - 11/06 Normal [facility] 0.100 /2012 [facility] CHEMISTRY Total CK 48 unit/L 12 - 191 11/06 Normal [facility] URINALYSIS UA <=1.0 0.1 - 1.0 11/06 [facility] Urobilinogen mg/dL Medical
*NA*< Center br/>(11/06 03:15:40) <sup> </sup> URINALYSIS UA Leuk Est Large Negative 11/06 [facility] *ABN* Center (11/06/2012 03:15:40) URINALYSIS UA Sq Epi Moderate /LPF Few 11/06 [facility] *ABN* Center (11/06/2012 03:15:40) URINALYSIS UA Mucus Few /LPF None Seen 11/06 [facility] *NA* Center (11/06/2012 03:15:40) URINALYSIS UA Nitrite Negative Negative 11/06 Normal [facility] (11/06/2012 03:15:40) Center URINALYSIS UA Bacteria Occasional /HPF None Seen 11/06 [facility] *NA* Center (11/06/2012 03:15:40) URINALYSIS UA WBC 67 /HPF 0 - 5 11/06 [facility] Center URINALYSIS UA Blood Negative Negative 11/06 Normal [facility] (11/06/2012 03:15:40) Center URINALYSIS UA Bili Negative Negative 11/06 [facility] Medical *NA* Center (11/06/2012 03:15:40) URINALYSIS UA Ketones 60 mg/dL Negative 11/06 ABN [facility] *ABN* Center (11/06/2012 03:15:40) URINALYSIS UA pH 5.0 5.0 - 8.0 11/06 Normal [facility] URINALYSIS UA Glucose >=1000 mg/dL Negative 11/06 [facility] *ABN* Center (11/06/2012 03:15:40) URINALYSIS UA Spec Grav 1.014 <=1.030 11/06 Normal [facility] URINALYSIS UA Protein Negative mg/dL Negative 11/06 Normal Medical (11/06/2012 03:15:40) Center URINALYSIS UA Turbidity Slight Clear 11/06 [facility] *ABN* Center (11/06/2012 03:15:40) URINALYSIS UA Color Yellow Yellow 11/06 NA [facility] *NA* Center (11/06/2012 03:15:40) CHEMISTRY Troponin-I 0.02 ng/mL 0.00 - 11/06 Normal [facility] 0.40 [facility] CHEMISTRY Total CK 30 unit/L 12 - 191 11/06 Normal [facility] CHEMISTRY Troponin-T null 0.000 - 11/06 Normal [facility] 0.100 [facility] CHEMISTRY Ketone 3.00 <=0.27 11/06 [facility] Quantitative mmol/L /2012 [facility] CHEMISTRY Lipase Lvl 89 unit/L 73 - 393 11/06 Normal [facility] CHEMISTRY Globulin 4.3 g/dL 2.0 - 4.0 11/06 HI [facility] CHEMISTRY A/G Ratio 0.9 0.7 - 1.6 11/06 Normal [facility] CHEMISTRY B/C Ratio 7 6 - 25 11/06 Normal [facility] CHEMISTRY Albumin Lvl 3.7 g/dL 3.5 - 5.0 11/06 Normal [facility] CHEMISTRY Total Protein 8.0 g/dL 6.4 - 8.4 11/06 Normal [facility] CHEMISTRY ALT 62 unit/L 0 - 65 11/06 Normal [facility] CHEMISTRY Alk Phos 119 unit/L 39 - 136 11/06 Normal Medical Center CHEMISTRY Bili Total 0.5 mg/dL 0.2 - 1.3 11/06 Normal [facility] CHEMISTRY AST 44 unit/L 0 - 37 11/06 HI [facility] HEMATOLOGY Polychrom Slight None Seen 11/06 Normal Medical (11/05/2012 20:40:00) Center HEMATOLOGY Hypochrom Slight None Seen 11/06 Normal Medical (11/05/2012 20:40:00) Center HEMATOLOGY Bands 1.0 % 0.0 - 11.0 11/06 Normal [facility] HEMATOLOGY Anisocyte 1+ None Seen 11/06 ABN Medical *ABN* Center (11/05/2012 20:40:00) HEMATOLOGY Atypical 0.0 % <=0.0 11/06 Normal [facility] HEMATOLOGY Macrocyte 1+ None Seen 11/06 ABN [facility] *ABN* [place] (11/05/2012 20:40:00) HEMATOLOGY Plt Morph Normal 11/06 Normal [facility] (11/05/2012 20:40:00) Center HEMATOLOGY INR 0.98 0.85 - 11/06 Normal 16Interpretive Data: RECOMMENDED RANGES FOR PROTIME INR: [facility] . 2.0-3.0 for most medical and surgical thromboembolic states. Medical 2.5-3.5 for artificial heart valves and recurrent embolism. Center INR SHOULD BE USED ONLY FOR PATIENTS ON STABLE ANTICOAGULANT THERAPY. HEMATOLOGY PT 13.2 s 12.0 - 11/06 Normal [facility] 14.7 [facility] HEMATOLOGY PTT 26.4 s 22.9 - 11/06 Normal 17Interpretiv [facility] 35.8 /2012 e Data: [facility] Heparin Center Therapeutic Range: 57 - 92 Seconds BEDSIDE Gluc POC null 70 - 11/01 CRIT 3Interpretive [facility] GLUCOSE [facility] Data: Medical TESTING Center Upper Reportable Limit: 200 mg/dL. BEDSIDE Comment1 Notify 11/01 NA Fei GLUCOSE RN/MD /2012 Medical TESTING Center BEDSIDE Gluc POC 237 mg/dL - 99 10/31 HI 4Interpretive [facility] GLUCOSE [facility] Data: Medical TESTING Center Upper Reportable Limit: 200 mg/dL. BEDSIDE Gluc POC 357 mg/dL - 10/31 HI 5Interpretive [facility] GLUCOSE [facility] Data: [facility] Center Upper Reportable Limit: 200 mg/dL. BEDSIDE Comment1 Notify 10/31 NA [facility] GLUCOSE RN/MD /[address] [facility] Center CHEMISTRY Phosphorus 4.2 mg/dL 2.5 - 4.5 10/31 Normal [facility] CHEMISTRY Ca Norm mgdL 4.64 mg/dL 4.65 - 10/31 LOW [facility] 5. [facility] CHEMISTRY Ca Ion mgdL 4.44 mg/dL 4.65 - 10/31 LOW [facility] 5. [facility] CHEMISTRY Ca Norm 1.16 1.16 - 10/31 Normal [facility] mMol/L 1. [facility] CHEMISTRY Ca Ion 1.11 1.16 - 10/31 LOW [facility] mMol/L . [facility] CHEMISTRY AGAP 16.9 meq/L 10.0 - 10/31 Normal [facility] 20.0 [facility] CHEMISTRY eGFR 67 10/31 NA 7Result Comment: The eGFR is calculated using the CKD-EPI formula. In most young, healthy individuals the eGFR will be > 90 mL/min/1.73m2. The eGFR declines with age. An eGFR of 60-89 may be normal in [facility] mL/min/1.7 some populations, particularly the elderly, for whom the CKD-EPI formula has not been extensively validated. Use of the eGFR is not recommended in the following populations: [place] [address] Center Individuals with unstable creatinine concentrations, including [...] 1.0 mg/dL 0.5 - 1.4 10/31 Normal [facility] Lvl [facility] Center CHEMISTRY Sodium Lvl 133 meq/L 135 - 145 10/31 LOW [facility] CHEMISTRY Calcium Lvl 8.3 mg/dL 8.5 - 10.5 10/31 [facility] CHEMISTRY Potassium Lvl 3.9 meq/L 3.5 - 5.1 10/31 Normal [facility] CHEMISTRY Chloride Lvl 94 meq/L 95 - 109 10/31 [facility] CHEMISTRY CO2 26 meq/L 24 - 32 10/31 Normal [facility] CHEMISTRY BUN 8 mg/dL 7 - 22 10/31 Normal [facility] CHEMISTRY Glucose Lvl 75 mg/dL 70 - 99 10/31 Normal 10Interpretive Data: Adult reference range values reflect the clinical guidelines of the [employer]. [facility] CHEMISTRY Magnesium Lvl 1.9 mg/dL 1.8 - 2.4 10/31 Normal [facility] HEMATOLOGY MPV 9.4 fL 7.4 - 10.4 10/31 Normal [facility] HEMATOLOGY Hgb 9.7 g/dL 12.0 - 10/31 [facility] 16.0 [facility] HEMATOLOGY RBC 4.06 M/CMM 4.20 - 10/31 [facility] 5.40 [facility] HEMATOLOGY MCV 74.3 fL 81.0 - 10/31 [facility] 99.0 [facility] HEMATOLOGY Hct 30.2 % 36.0 - 10/31 [facility] 48.0 [facility] HEMATOLOGY MCHC 32.2 g/dL 32.0 - 10/31 [facility] 36.0 [facility] HEMATOLOGY MCH 23.9 pg 27.0 - 10/31 [facility] 31.0 [facility] HEMATOLOGY Platelet 199 K/CMM 133 - 450 10/31 Normal [facility] HEMATOLOGY RDW 17.5 % 11.5 - 10/31 [facility] 14.5 [facility] HEMATOLOGY WBC 9.4 K/CMM 3.7 - 10.4 10/31 [facility] HEMATOLOGY Lymphocytes # 2.7 K/CMM 1.0 - 5.5 10/31 [facility] HEMATOLOGY Basophils 0.6 % 0.0 - 1.0 10/31 [facility] HEMATOLOGY Segs-Bands # 5.2 K/CMM 1.5 - 8.1 10/31 [facility] HEMATOLOGY Microcyte 1+ None Seen 10/31 [facility] Medical *ABN* Center (10/31/2012 04:00:00) HEMATOLOGY Monocytes # 1.1 K/CMM 0.0 - 0.8 10/31 [facility] HEMATOLOGY Eosinophils # 0.3 K/CMM 0.0 - 0.5 10/31 Normal [facility] HEMATOLOGY Basophils # 0.1 K/CMM 0.0 - 0.2 10/31 Normal [facility] HEMATOLOGY Segs 55.2 % 45.0 - 10/31 Normal [facility] 75.0 [facility] HEMATOLOGY Monocytes 11.8 % 2.0 - 12.0 10/31 Normal [facility] HEMATOLOGY Lymphocytes 28.9 % 20.0 - 10/31 Normal [place] 40.0 [facility] HEMATOLOGY Eosinophils 3.5 % 0.0 - 4.0 10/31 Normal [facility] BEDSIDE Comment1 Notify 10/31 NA [facility] GLUCOSE RN/MD [facility] CHEMISTRY Ca Norm mgdL 4.92 mg/dL 4. - 10/30 Normal [facility] 5. [facility] CHEMISTRY Ca Ion mgdL 4.76 mg/dL 4.65 - 10/30 Normal [facility] 5. [facility] CHEMISTRY Ca Norm 1.23 1.16 - 10/30 Normal [facility] mMol/L 1. [facility] CHEMISTRY Ca Ion 1.19 1.16 - 10/30 Normal [facility] mMol/L 1. [facility] CHEMISTRY Phosphorus 3.8 mg/dL 2.5 - 4.5 10/30 Normal [facility] CHEMISTRY Magnesium Lvl 1.9 mg/dL 1.8 - 2.4 10/30 Normal [facility]2012 [facility] CHEMISTRY eGFR 88 10/30 NA 8Result Comment: The eGFR is calculated using the CKD-EPI formula. In most young, healthy individuals the eGFR will be > 90 mL/min/1.73m2. The eGFR declines with age. An eGFR of 60-89 may be normal in [facility] mL/min/1.7 some populations, particularly the elderly, for whom the CKD-EPI formula has not been extensively validated. Use of the eGFR is not recommended in the following populations: [place] [address] Center Individuals with unstable creatinine concentrations, including [...] values reflect the clinical guidelines of the [employer]. Medical Center CHEMISTRY Creatinine 0.8 mg/dL 0.5 - 1.4 10/30 Normal [facility] Lvl [facility] Center CHEMISTRY BUN 6 mg/dL 7 - 22 10/30 LOW Medical [place] CHEMISTRY Sodium Lvl 132 meq/L 135 - 145 10/30 LOW [facility] CHEMISTRY Calcium Lvl 8.5 mg/dL 8.5 - 10.5 10/30 Normal [facility] CHEMISTRY CO2 29 meq/L 24 - 32 10/30 Normal [facility] CHEMISTRY Chloride Lvl 92 meq/L 95 - 109 10/30 LOW [facility] CHEMISTRY Potassium Lvl 3.8 meq/L 3.5 - 5.1 10/30 Normal [facility] CHEMISTRY AGAP 14.8 meq/L 10.0 - 10/30 Normal [facility] 20.0 [facility] HEMATOLOGY Platelet 245 K/CMM 133 - 450 10/30 Normal [facility] HEMATOLOGY MPV 9.4 fL 7.4 - 10.4 10/30 Normal [facility] HEMATOLOGY Hct 33.1 % 36.0 - 10/30 LOW [facility] 48.0 [facility] HEMATOLOGY RBC 4.47 M/CMM 4.20 - 10/30 Normal [facility] 5.40 /2012 [facility] HEMATOLOGY WBC 11.0 K/CMM 3.7 - 10.4 10/30 HI [facility] HEMATOLOGY Hgb 10.6 g/dL 12.0 - 10/30 LOW [facility] 16.0 [facility] HEMATOLOGY MCHC 31.9 g/dL 32.0 - 10/30 LOW [facility] 36.0 [facility] HEMATOLOGY MCV 74.1 fL 81.0 - 10/30 [facility] 99.0 /2012 Medical [place] HEMATOLOGY MCH 23.7 pg 27.0 - 10/30 LOW [facility] 31.0 [facility] HEMATOLOGY RDW 16.9 % 11.5 - 10/30 HI [facility] 14.5 /2012 Medical Center HEMATOLOGY PTT 28.1 s 22.9 - 10/30 Normal 25Interpretiv [facility] 35.8 /2012 e Data: [facility] Center Therapeutic Range: 57 - 92 Seconds HEMATOLOGY PT 13.7 s 12.0 - 10/30 Normal [facility] 14.7 /2012 [facility] HEMATOLOGY INR 1.03 0.85 - 10/30 Normal 22Interpretive Data: RECOMMENDED RANGES FOR PROTIME INR: [facility] 1. 2.0-3.0 for most medical and surgical thromboembolic states. Medical 2.5-3.5 for artificial heart valves and recurrent embolism. Center INR SHOULD BE USED ONLY FOR PATIENTS ON STABLE ANTICOAGULANT THERAPY. HEMATOLOGY Segs-Bands # 7.5 K/CMM 1.5 - 8.1 10/30 Normal [facility] HEMATOLOGY Basophils 0.4 % 0.0 - 1.0 10/30 Normal [facility] HEMATOLOGY Monocytes # 1.1 K/CMM 0.0 - 0.8 10/30 HI [facility] HEMATOLOGY Lymphocytes # 2.1 K/CMM 1.0 - 5.5 10/30 Normal 2012 [facility] HEMATOLOGY Microcyte 1+ None Seen 10/30 ABN Medical *ABN* Center (10/30/2012 00:20:00) HEMATOLOGY Eosinophils # 0.2 K/CMM 0.0 - 0.5 10/30 Normal [facility] HEMATOLOGY Segs 68.3 % 45.0 - 10/30 Normal [facility] 75.0 [facility] HEMATOLOGY Lymphocytes 18.9 % 20.0 - 10/30 LOW [facility] 40.0 [facility] HEMATOLOGY Monocytes 10.3 % 2.0 - 12.0 10/30 Normal [facility] HEMATOLOGY Eosinophils 2.1 % 0.0 - 4.0 10/30 Normal [facility] CHEMISTRY Magnesium Lvl 2.1 mg/dL 1.8 - 2.4 10/29 Normal [facility] CHEMISTRY Phosphorus 4.1 mg/dL 2.5 - 4.5 10/29 Normal [facility] CHEMISTRY Ca Ion mgdL 3.96 mg/dL 4.65 - 10/29 LOW [facility] 5.20 [facility] CHEMISTRY Ca Norm 1.01 1.16 - 10/29 LOW [place] mMol/L 1. [facility] CHEMISTRY Ca Ion 0.99 1.16 - 10/29 LOW [facility] mMol/L 1. [facility] CHEMISTRY Ca Norm mgdL 4.04 mg/dL 4.65 - 10/29 LOW [facility] 5.20 [facility] CHEMISTRY eGFR 104 10/29 NA 9Result Comment: The eGFR is calculated using the CKD-EPI formula. In most young, healthy individuals the eGFR will be > 90 mL/min/1.73m2. The eGFR declines with age. An eGFR of 60-89 may be normal in [facility] mL/min/1. some populations, particularly the elderly, for whom the CKD-EPI formula has not been extensively validated. Use of the eGFR is not recommended in the following populations: [address] Individuals with unstable creatinine concentrations, including [...] 0.7 mg/dL 0.5 - 1.4 10/29 Normal [facility] CHEMISTRY BUN 3 mg/dL 7 - 10/29 LOW [facility] CHEMISTRY Calcium Lvl 8.9 mg/dL 8.5 - 10.5 10/29 Normal [facility] CHEMISTRY Glucose Lvl 90 mg/dL 70 - 99 10/29 Normal 12Interpretive Data: Adult reference range values reflect the clinical guidelines of the [employer]. [facility] CHEMISTRY Chloride Lvl 99 meq/L 95 - 109 10/29 Normal [facility] CHEMISTRY Potassium Lvl 4.4 meq/L 3.5 - 5.1 10/29 Normal [facility] CHEMISTRY CO2 27 meq/L 24 - 32 10/29 Normal [facility] CHEMISTRY Sodium Lvl 139 meq/L 135 - 145 10/29 Normal [facility] CHEMISTRY AGAP 17.4 meq/L 10.0 - 10/29 Normal [facility] 20.0 [facility] HEMATOLOGY PTT 23.7 s 22.9 - 10/29 Normal 26Interpretiv [facility] 35.8 e Data: [facility] Therapeutic Range: 57 - 92 Seconds HEMATOLOGY PT 13.4 s 12.0 - 10/29 Normal [facility] 14.7 [facility] HEMATOLOGY INR 1.00 0.85 - 10/29 Normal Interpretive Data: RECOMMENDED RANGES FOR PROTIME INR: [facility] . 2.0-3.0 for most medical and surgical thromboembolic states. Medical 2.5-3.5 for artificial heart valves and recurrent embolism. Center INR SHOULD BE USED ONLY FOR PATIENTS ON STABLE ANTICOAGULANT THERAPY. HEMATOLOGY RDW 17.1 % 11.5 - 10/29 [facility] 14.5 /2012 [facility] HEMATOLOGY MCH 23.8 pg 27.0 - 10/29 [facility] 31.0 /2012 [facility] HEMATOLOGY MCHC 32.2 g/dL 32.0 - 10/29 Normal [facility] 36.0 /2012 [facility] HEMATOLOGY Hct 33.6 % 36.0 - 10/29 [facility] 48.0 /2012 [facility] HEMATOLOGY MCV 74.0 fL 81.0 - 10/29 [facility] 99.0 [facility] HEMATOLOGY Platelet 233 K/CMM 133 - 450 10/29 Normal [facility] HEMATOLOGY MPV 9.9 fL 7.4 - 10.4 10/29 Normal [facility] HEMATOLOGY RBC 4.54 M/CMM 4.20 - 10/29 [facility] 5.40 /2012 [facility] HEMATOLOGY Hgb 10.8 g/dL 12.0 - 10/29 [facility] 16.0 [facility] HEMATOLOGY WBC 9.7 K/CMM 3.7 - 10.4 10/29 Normal [facility] HEMATOLOGY Lymphocytes # 2.6 K/CMM 1.0 - 5.5 10/29 Normal [facility] HEMATOLOGY Basophils 0.7 % 0.0 - 1.0 10/29 Normal [facility] HEMATOLOGY Segs-Bands # 6.0 K/CMM 1.5 - 8.1 10/29 Normal [facility] HEMATOLOGY Monocytes # 0.7 K/CMM 0.0 - 0.8 10/29 Normal [facility] HEMATOLOGY Eosinophils # 0.3 K/CMM 0.0 - 0.5 10/29 Normal [facility] HEMATOLOGY Basophils # 0.1 K/CMM 0.0 - 0.2 10/29 Normal [facility] HEMATOLOGY Microcyte 1+ None Seen 10/29 ABN Medical *ABN* Center (10/29/2012 00:56:00) HEMATOLOGY Segs 61.5 % 45.0 - 10/29 Normal [facility] 75.0 [facility] HEMATOLOGY Lymphocytes 26.8 % 20.0 - 10/29 Normal [facility] 40.0 [facility] HEMATOLOGY Monocytes 7.6 % 2.0 - 12.0 10/29 Normal [facility] HEMATOLOGY Eosinophils 3.4 % 0.0 - 4.0 10/29 Normal [facility] CHEMISTRY Amylase Lvl 27 unit/L 25 - 115 10/28 Normal [facility] CHEMISTRY Lipase Lvl 58 unit/L 73 - 393 10/28 LOW [facility] CHEMISTRY Bili Indirect 0.2 mg/dL 0.0 - 1.0 10/28 Normal [facility] CHEMISTRY Globulin 3.4 g/dL 2.0 - 4.0 10/28 Normal [facility] CHEMISTRY A/G Ratio 0.8 0.7 - 1.6 10/28 Normal [facility] CHEMISTRY AST 24 unit/L 0 - 37 10/28 Normal [facility] CHEMISTRY Bili Total 0.3 mg/dL 0.2 - 1.3 10/28 Normal [facility] CHEMISTRY Total Protein 6.2 g/dL 6.4 - 8.4 10/28 LOW [facility] CHEMISTRY ALT 23 unit/L 0 - 65 10/28 Normal [facility] CHEMISTRY Albumin Lvl 2.8 g/dL 3.5 - 5.0 10/28 LOW [facility] CHEMISTRY Alk Phos 85 unit/L 39 - 136 10/28 Normal [facility] CHEMISTRY Bili Direct 0.1 mg/dL 0.0 - 0.3 10/28 Normal [facility] HEMATOLOGY PTT 23.9 s 22.9 - 10/28 Normal 27Interpretiv [facility] 35.8 /2012 e Data: [facility] Therapeutic Range: 57 - 92 Seconds HEMATOLOGY PT 13.5 s 12.0 - 10/28 Normal [facility] 14.7 [facility] HEMATOLOGY INR 1.01 0.85 - 10/28 Normal 24Interpretive Data: RECOMMENDED RANGES FOR PROTIME INR: [facility] 1. 2.0-3.0 for most medical and surgical thromboembolic states. Medical 2.5-3.5 for artificial heart valves and recurrent embolism. Center INR SHOULD BE USED ONLY FOR PATIENTS ON STABLE ANTICOAGULANT THERAPY. VIRAL - Influ B Negative 6 Negative 10/28 Normal 6Interpretive [facility] SEROLOGY Data: [facility] (10/27/2012 18:02:02) [...] - Influ A Negative Negative 10/28 Normal [facility] SEROLOGY Medical (10/27/2012 18:02:02) Center CHEMISTRY Vitamin D, 16 ng/mL 30 - 100 10/25 LOW 13Interpretive Data: Reference range is based on recommendations in the Endocrine [facility] 25-[place], /2013 Society Clinical Practice Guideline (J Clin Endocrinol [facility] Medical 2011;96:5891-1745) Center CHEMISTRY Hgb A1C 8.4 % 10/25 NA 21Interpretive Data: HbA1C% eAG( mg/dL) Interpretation 6.0 126 Very good control [facility] 6.5 140 Very good control [place] 7.0 154 Good Control 7.5 169 Good Control 8.0 183 Marginal Control, take action to lower 8.5 197 Marginal Control, take action to lower 9.0 212 Poor Control, take action to lower 9.5 226 Poor Control, take action to lower 10.0 240 Poor Control, take action to lower CHEMISTRY LDL 87 mg/dL 0 - 129 10/25 Normal [facility] CHEMISTRY HDL 35 mg/dL >=35 10/25 Normal [facility] CHEMISTRY Trig 101 mg/dL 0 - 200 10/25 Normal [facility] CHEMISTRY Chol 142 mg/dL 120 - 200 10/25 Normal [facility] CHEMISTRY CHD Risk 4.06 3.90 - 10/25 Normal [facility] 5.80 [facility] CHEMISTRY Troponin-I 5.43 ng/mL 0.00 - 10/25 CRIT 18Result [facility] 0.40 Comment: [facility] Result(s) called to Jelani Rasmussen at 10/25/2012 00:47:48 PATTERN STAMPER by ISAAC. Read back OK. CHEMISTRY Troponin-T 0.693 0.000 - 10/25 CRIT 15Result [facility] ng/mL 0.100 /2012 Comment: [facility] Result(s) called to daisy otoole at 10/25/2012 01:18:09 PATTERN STAMPER by tac. Read back OK. HEMATOLOGY Basophils # 0.2 K/CMM 0.0 - 0.2 10/25 Normal [facility] HEMATOLOGY Plt Morph Normal 10/25 Normal Medical (10/25/2012 00:15:00) Center CHEMISTRY ALT 15 unit/L 0 - 65 10/24 Normal [facility] CHEMISTRY Albumin Lvl 2.7 g/dL 3.5 - 5.0 10/24 LOW [facility] CHEMISTRY Bili Total 0.5 mg/dL 0.2 - 1.3 10/24 Normal [facility] CHEMISTRY Alk Phos 83 unit/L 39 - 136 10/24 Normal [facility] CHEMISTRY Bili Direct 0.2 mg/dL 0.0 - 0.3 10/24 Normal [facility] CHEMISTRY Total Protein 5.8 g/dL 6.4 - 8.4 10/24 LOW [facility] CHEMISTRY AST 41 unit/L 0 - 37 10/24 HI [facility] CHEMISTRY Bili Indirect 0.3 mg/dL 0.0 - 1.0 10/24 Normal [facility] CHEMISTRY Globulin 3.1 g/dL 2.0 - 4.0 10/24 Normal [facility] CHEMISTRY A/G Ratio 0.9 0.7 - 1.6 10/24 Normal [facility] CHEMISTRY POC A Mode NC-3LPM 10/24 NA [facility] CHEMISTRY POC A HCO3 19 mMol/L 22 - 26 10/24 LOW [facility] CHEMISTRY POC A O2 Sat 98.0 % 95.0 - 10/24 Normal [facility] 100.0 [facility] CHEMISTRY POC A BE -6 mMol/L -2-2 - 2 10/24 LOW [facility] CHEMISTRY POC A PO2 103 mm[Hg] 80 - 100 10/24 HI [facility] CHEMISTRY POC A pH 7.35 7.35 - 10/24 [facility] 7.45 [facility] CHEMISTRY POC A PCO2 34 mm[Hg] 35 - 45 10/24 LOW [facility] CHEMISTRY POC A Temp 37.0 Abby 10/24 NA Medical Center CHEMISTRY POC A Source ART 10/24 NA [facility] Center CHEMISTRY Troponin-T 0.688 0.000 - 10/24 CRIT 16Result [facility] ng/mL 0.100 Comment: [facility] Result(s) called to Maribel Bustos at 10/24/2012 13:23:46 PATTERN STAMPER by lwb . Read back OK. CHEMISTRY Troponin-I 7.61 ng/mL 0.00 - 10/24 CRIT 19Result [facility] 0.40 Comment: [facility] Result(s) called to mariana bustos at _ 10/24/2012 13:37:22 CSTby_lss. Read back OK. CHEMISTRY Total CK 150 unit/L - 10/24 Normal [facility] CHEMISTRY Lactic Acid 0.7 mMol/L 0.5 - 2.2 10/24 Normal [facility] Lvl Medical Center CHEMISTRY CK MB Index 11.0 0.0 - 2.5 10/24 HI [facility] Center CHEMISTRY CK MB 16.5 ng/mL 0.5 - 3.6 10/24 HI Medical Center CHEMISTRY Troponin-T 0.750 0.000 - 10/24 CRIT 17Result [facility] ng/mL 0.100 Comment: [facility] Critical [facility] Result(s) called to Lyn King at 10/24/2012 09:52:38 PATTERN STAMPER by lwb . Read back OK. CHEMISTRY Troponin-I 7.60 ng/mL 0.00 - 10/24 CRIT 20Result [facility] 0.40 Comment: [facility] Result(s) called to romero beltre at _10/24/2012 09:50:18 PATTERN STAMPER by_lss. Read back OK. CHEMISTRY Total CK 170 unit/L 12 - 10/24 Normal 14Result Comment: Medical Specimen Center Moderately Hemolyzed. CHEMISTRY CK MB Index 10.5 0.0 - 2.5 10/24 HI [facility] Center CHEMISTRY CK MB 17.8 ng/mL 0.5 - 3.6 10/24 HI Medical Center CHEMISTRY Ketone 0.07 <=0.27 10/24 Normal [place] Quantitative mmol/L /2012 Medical Center CHEMISTRY Ketone 2.61 <=0.27 10/24 HI Quantitative mmol/L Medical Center CHEMISTRY CK MB 30.9 ng/mL 0.5 - 3.6 10/24 HI Medical Center CHEMISTRY CK MB Index 12.2 0.0 - 2.5 10/24 HI Medical Center CHEMISTRY Total CK 254 unit/L 12 - 191 10/24 HI Medical Center CHEMISTRY Lactic Acid 0.6 mMol/L 0.5 - 2.2 10/24 Normal [facility] Center CHEMISTRY POC V O2 [...] V pH 7.33 7.28 - 10/24 Normal [place] 7.42 Medical Center CHEMISTRY POC V Temp 37.0 Abby 10/24 NA Medical Center CHEMISTRY POC V Source MARK 10/24 NA Medical Center CHEMISTRY Ketone 0.93 <=0.27 10/24 HI [place] Quantitative mmol/L Medical Center Microbiolog Culture: 10/24 Urine Medical Center CHEMISTRY Lactic Acid 0.6 mMol/L 0.5 - 2.2 10/23 Normal [facility] Center Microbiolog Culture: 10/23 y Blood Medical [...] -5 mMol/L -2-2 - 2 10/23 LOW MH [facility] CHEMISTRY POC A O2 Sat 99.0 % 95.0 - 10/23 [facility] 100.0 [facility] CHEMISTRY POC A Hct 35.0 % 36.0 - 10/23 LOW [facility] 48.0 [facility] CHEMISTRY POC A HCO3 20 mMol/L 22 - 26 10/23 LOW [facility] CHEMISTRY POC A PCO2 36 mm[Hg] 35 - 45 10/23 Normal [facility] CHEMISTRY POC A LA 0.6 mMol/L 0.5 - 2.2 10/23 Normal [facility] CHEMISTRY POC A Ca Ion 1.20 1.16 - 10/23 [facility] mMol/L 1.30 [facility] CHEMISTRY POC A Na 133 meq/L 135 - 145 10/23 LOW [facility] CHEMISTRY POC A K 3.8 meq/L 3.5 - 5.1 10/23 Normal [facility] CHEMISTRY A/G Ratio 0.8 0.7 - 1.6 10/23 Normal [facility] CHEMISTRY AST 90 unit/L 0 - 37 10/23 HI [facility] CHEMISTRY Globulin 3.9 g/dL 2.0 - 4.0 10/23 Normal [facility] CHEMISTRY B/C Ratio 16 6 - 25 10/23 Normal [facility] CHEMISTRY Total Protein 7.2 g/dL 6.4 - 8.4 10/23 Normal [facility] CHEMISTRY Bili Total 0.5 mg/dL 0.2 - 1.3 10/23 Normal [facility] CHEMISTRY Albumin Lvl 3.3 g/dL 3.5 - 5.0 10/23 LOW [facility] CHEMISTRY Alk Phos 94 unit/L 39 - 136 10/23 Normal [facility] CHEMISTRY ALT 23 unit/L 0 - 65 10/23 Normal [facility] CHEMISTRY Osmolality 292 280 - 300 10/23 Normal [facility] mOsm/kg [facility] CHEMISTRY Myoglobin 128 ng/mL 25 - 72 10/23 HI [facility] Microbiolog Culture: 10/23 [facility] y [facility] Screen BACTERIAL - MRSA by PCR Positive 1, 2 10/23 ABN 2Interpretive Data: Interpretive Data: The [employer] MRSA assay is a qualitative test for the direct detection of nasal colonization with methicillin-resistant Staphylococcus aureus (MRSA) to aid [facility] in the prevention and control of MRSA infections in healthcare settings. A positive result does not indicate an infection or require treatment. A negative result does not exclude colonization or infection. Medical *[facility]* Center The polymerase chain reaction (PCR) [...] CHEMISTRY Osmolality 309 280 - 300 10/23 [facility] mOsm/kg [facility] CHEMISTRY POC A Hct 37.0 % 36.0 - 10/23 [facility] 48.0 [facility] CHEMISTRY POC A Na 129 meq/L 135 - 145 10/23 LOW [facility] CHEMISTRY POC A LA 1.0 mMol/L 0.5 - 2.2 10/23 Normal [facility] CHEMISTRY POC A K 4.5 meq/L 3.5 - 5.1 10/23 Normal [facility] CHEMISTRY POC A Glu null 70 - 99 10/23 CRIT [facility] CHEMISTRY POC A Ca Ion 1.18 1.16 - 10/23 Normal [facility] mMol/L 1.30 [facility] CHEMISTRY POC A PCO2 30 mm[Hg] 35 - 45 10/23 CRIT [facility] CHEMISTRY POC A PO2 123 mm[Hg] 80 - 100 10/23 HI [facility] CHEMISTRY POC A Temp 37.0 Abby 10/23 NA [facility] CHEMISTRY POC A HCO3 14 mMol/L 22 - 26 10/23 [facility] CHEMISTRY POC A Source ART 10/23 NA [facility] CHEMISTRY POC A pH 7.27 7.35 - 10/23 LOW [facility] 7.45 [facility] CHEMISTRY POC A BE -12 mMol/L -2-2 - 2 10/23 [facility] CHEMISTRY POC A O2 Sat 98.0 % 95.0 - 10/23 Normal [facility] 100.0 [facility] CHEMISTRY Bili Direct 0.4 mg/dL 0.0 - 0.3 10/23 HI [facility] CHEMISTRY Lipase Lvl 54 unit/L 73 - 393 10/23 LOW [facility] CHEMISTRY Amylase Lvl 28 unit/L 25 - 115 10/23 Normal [facility] CHEMISTRY B/C Ratio 10 6 - 25 10/23 Normal [facility] BLOOD BANK Antibody Scrn Negative 10/23 Normal [facility] Medical (10/23/2012 01:00:00) Center BLOOD BANK ABO/Rh A POS 10/23 Unknown [facility] URINALYSIS UA <=1.0 0.1 - 1.0 10/23 NA [facility] Urobilinogen mg/dL Medical
*NA*< Center br/>(10/23 00:01:00) <sup> </sup> URINALYSIS UA Sq Epi Moderate /LPF Few 10/23 ABN Medical *ABN* Center (10/23/2012 00:01:00) URINALYSIS UA Leuk Est Negative Negative 10/23 Normal [facility] (10/23/2012 00:01:00) Center URINALYSIS UA Nitrite Negative Negative 10/23 Normal [facility] (10/23/2012 00:01:00) Center URINALYSIS UA Blood Negative Negative 10/23 Normal [facility] (10/23/2012 00:01:00) Center URINALYSIS UA Glucose >=1000 mg/dL Negative 10/23 ABN Medical *ABN* [facility] (10/23/2012 00:01:00) URINALYSIS UA Protein 10 mg/dL Negative 10/23 ABN Medical *ABN* [facility] (10/23/2012 00:01:00) URINALYSIS UA pH 5.0 5.0 - 8.0 10/23 Normal [facility] URINALYSIS UA WBC 1 /HPF 0 - 5 10/23 Normal [facility] URINALYSIS UA Bili Negative Negative 10/23 NA Medical *NA* [facility] (10/23/2012 00:01:00) URINALYSIS UA Ketones >=150 mg/dL Negative 10/23 ABN Medical *ABN* Center (10/23/2012 00:01:00) URINALYSIS UA Spec Grav 1.015 <=1.030 10/23 Normal [facility] URINALYSIS UA Turbidity Clear Clear 10/23 Normal Medical (10/23/2012 00:01:00) Center URINALYSIS UA Color Light Yellow Yellow 10/23 NA Medical *NA* Center (10/23/2012 00:01:00) BEDSIDE Gluc POC 265 mg/dL 70 - 99 10/08 HI 1Interpretive [facility] GLUCOSE Lifsc Data: [facility] TESTING Center Upper Reportable Limit: 200 mg/dL. BEDSIDE Comment1 Notify 10/08 [facility] GLUCOSE RN/MD /2012 [facility] TESTING Center BEDSIDE Comment1 Notify 10/08 NA [facility] GLUCOSE RN/MD [facility] TESTING Center BEDSIDE Gluc POC 204 mg/dL 70 - 99 10/08 HI 2Interpretive [facility] GLUCOSE Lifwy Data: [facility] TESTING [facility] Upper Reportable Limit: 200 mg/dL. CHEMISTRY Phosphorus 2.7 mg/dL 2.5 - 4.5 10/08 Normal [facility] CHEMISTRY Magnesium Lvl 1.6 mg/dL 1.8 - 2.4 10/08 LOW [facility] CHEMISTRY Ca Ion 1.17 1.16 - 02 Normal [facility] mMol/L 1. [facility] CHEMISTRY Ca Norm 1.18 1.16 - 10/08 Normal [facility] mMol/L 1. [facility] CHEMISTRY Ca Ion mgdL 4.68 mg/dL 4.65 - 10/08 Normal [facility] 5.20 [facility] CHEMISTRY Ca Norm mgdL 4.72 mg/dL 4.65 - 02 Normal [facility] 5.20 [facility] CHEMISTRY AGAP 17.6 meq/L 10.0 - 10/08 Normal [facility] 20.0 [facility] CHEMISTRY eGFR 109 10/08 NA 4Result Comment: The eGFR is calculated using the CKD-EPI formula. In most young, healthy individuals the eGFR will be > 90 mL/min/1.73m2. The eGFR declines with age. An eGFR of 60-89 may be normal in [facility] mL/min/1.7 some populations, particularly the elderly, for whom the CKD-EPI formula has not been extensively validated. Use of the eGFR is not recommended in the following populations: [place] [address] Center Individuals with unstable creatinine concentrations, including [...] 24 meq/L 24 - 32 10/08 Normal [facility] CHEMISTRY Calcium Lvl 8.5 mg/dL 8.5 - 10.5 10/08 Normal [facility]2012 [facility] CHEMISTRY Potassium Lvl 3.6 meq/L 3.5 - 5.1 10/08 Normal [facility]2012 [facility] CHEMISTRY Chloride Lvl 96 meq/L 95 - 109 10/[address] CHEMISTRY Creatinine 0.6 mg/dL 0.5 - 1.4 10/08 Normal [facility] [place]2012 [facility] CHEMISTRY Sodium Lvl 134 meq/L 135 - 145 10/[address] CHEMISTRY Glucose Lvl 129 mg/dL 70 - 99 10/08 HI 7Interpretive Data: Adult reference range values reflect the clinical guidelines of the [employer]. [facility] CHEMISTRY BUN 4 mg/dL 7 - 22 10/[address] HEMATOLOGY Monocytes # 1.1 K/CMM 0.0 - 0.8 10/08 HI [facility]2012 [facility] HEMATOLOGY Eosinophils # 0.3 K/CMM 0.0 - 0.5 10/08 Normal [facility]2012 [facility] HEMATOLOGY Basophils # 0.1 K/CMM 0.0 - 0.2 10/[address] HEMATOLOGY Microcyte 1+ None Seen 10/08 ABN Medical *ABN* Center (10/08/2012 03:57:00) HEMATOLOGY Segs 55.7 % 45.0 - 02 Normal [facility] 75.0 [facility] HEMATOLOGY Lymphocytes 31.3 % 20.0 - 02 Normal [place] 40.0 [facility] HEMATOLOGY Monocytes 10.0 % 2.0 - 12.0 10/08 Normal [facility]2012 [facility] HEMATOLOGY Eosinophils 2.5 % 0.0 - 4.0 02 Normal [facility] HEMATOLOGY Segs-Bands # 6.1 K/CMM 1.5 - 8.1 02/ Normal [facility] HEMATOLOGY Basophils 0.5 % 0.0 - 1.0 02/ Normal [facility] HEMATOLOGY Lymphocytes # 3.4 K/CMM 1.0 - 5.5 02 Normal [facility] HEMATOLOGY RDW 16.9 % 11.5 - 02 HI [facility] 14.5 /2012 [facility] HEMATOLOGY Platelet 218 K/CMM 133 - 450 02 Normal [facility] HEMATOLOGY WBC 10.9 K/CMM 3.7 - 10.4 10/08 HI [facility] HEMATOLOGY RBC 4.35 M/CMM 4.20 - 10/08 Normal [facility] 5.40 [facility] HEMATOLOGY MPV 9.7 fL 7.4 - 10.4 10/08 Normal [facility] HEMATOLOGY Hgb 10.4 g/dL 12.0 - 10/08 LOW [facility] 16.0 [facility] HEMATOLOGY Hct 32.7 % 36.0 - 02 [facility] 48.0 /2012 [facility] HEMATOLOGY MCHC 31.8 g/dL 32.0 - 02 [facility] 36.0 /2012 [facility] HEMATOLOGY MCV 75.2 fL 81.0 - 02 [facility] 99.0 /2012 [facility] HEMATOLOGY MCH 23.9 pg 27.0 - 10/08 [facility] 31.0 [facility] BEDSIDE Comment1 Notify 10/08 NA [facility] GLUCOSE RN/MD /2012 Medical TESTING Center BEDSIDE Gluc POC 247 mg/dL 70 - 99 10/08 HI 3Interpretive [facility] GLUCOSE Lifscn Data: Medical TESTING Center Upper Reportable Limit: 200 mg/dL. CHEMISTRY Magnesium Lvl 2.1 mg/dL 1.8 - 2.4 10/07 Normal [facility] CHEMISTRY Ca Norm 1.16 1.16 - 02 Normal [facility] mMol/L 1.30 [facility] CHEMISTRY Ca Ion mgdL 4.72 mg/dL 4.65 - 10/07 Normal [facility] 5. [facility] CHEMISTRY Ca Norm mgdL 4.64 mg/dL 4.65 - 10/07 LOW [facility] 5. [facility] CHEMISTRY Ca Ion 1.18 1.16 - 02 Normal [facility] mMol/L 1.30 [facility] CHEMISTRY Phosphorus 2.6 mg/dL 2.5 - 4.5 10/07 Normal [facility] CHEMISTRY Calcium Lvl 8.1 mg/dL 8.5 - 10.5 10/07 LOW [facility] CHEMISTRY AGAP 19.4 meq/L 10.0 - 10/07 Normal [facility] 20.0 [facility] CHEMISTRY eGFR 116 10/07 NA 5Result Comment: The eGFR is calculated using the CKD-EPI formula. In most young, healthy individuals the eGFR will be > 90 mL/min/1.73m2. The eGFR declines with age. An eGFR of 60-89 may be normal in [facility] mL/min/1.7 some populations, particularly the elderly, for whom the CKD-EPI formula has not been extensively validated. Use of the eGFR is not recommended in the following populations: [place] [address] Center Individuals with unstable creatinine concentrations, including [...] 6 mg/dL 7 - 22 10/07 LOW [facility] CHEMISTRY Glucose Lvl 99 mg/dL 70 - 99 10/07 Normal 8Interpretive Data: Adult reference range values reflect the clinical guidelines of the [employer]. [facility] CHEMISTRY Creatinine 0.5 mg/dL 0.5 - 1.4 10/07 Normal [facility] Lvl [facility] CHEMISTRY Potassium Lvl 3.4 meq/L 3.5 - 5.1 10/07 LOW [facility] CHEMISTRY Sodium Lvl 135 meq/L 135 - 145 10/07 Normal [facility] CHEMISTRY CO2 24 meq/L 24 - 32 10/07 Normal [facility] CHEMISTRY Chloride Lvl 95 meq/L 95 - 109 10/07 Normal [facility] HEMATOLOGY MCHC 31.8 g/dL 32.0 - 10/07 LOW [facility] 36.0 [facility] HEMATOLOGY MCH 24.1 pg 27.0 - 10/07 [facility] 31.0 /2012 [facility] HEMATOLOGY MCV 75.7 fL 81.0 - 02 [facility] 99.0 /2012 [facility] HEMATOLOGY Hct 31.0 % 36.0 - 02 [facility] 48.0 /2012 [facility] HEMATOLOGY Hgb 9.9 g/dL 12.0 - 02/ [facility] 16.0 /2012 [facility] HEMATOLOGY MPV 9.1 fL 7.4 - 10.4 02 Normal [facility] HEMATOLOGY Platelet 222 K/CMM 133 - 450 02 Normal [facility] HEMATOLOGY RDW 16.8 % 11.5 - 02 [facility] 14.5 /2012 [facility] HEMATOLOGY RBC 4.10 M/CMM 4.20 - 02 [facility] 5.40 /2012 [facility] HEMATOLOGY WBC 13.8 K/CMM 3.7 - 10.4 10/07 [facility] HEMATOLOGY Segs-Bands # 9.6 K/CMM 1.5 - 8.1 10/07 [facility] HEMATOLOGY Basophils 0.3 % 0.0 - 1.0 02 Normal [facility] HEMATOLOGY Eosinophils 1.0 % 0.0 - 4.0 02 [facility] HEMATOLOGY Microcyte 1+ None Seen 10/07 [facility] (10/07/2012 03:25:00) HEMATOLOGY Lymphocytes # 2.9 K/CMM 1.0 - 5.5 10/07 [facility] HEMATOLOGY Eosinophils # 0.1 K/CMM 0.0 - 0.5 10/07 [facility] HEMATOLOGY Monocytes # 1.2 K/CMM 0.0 - 0.8 02 [facility] HEMATOLOGY Monocytes 8.8 % 2.0 - 12.0 10/07 [facility] HEMATOLOGY Lymphocytes 20.8 % 20.0 - 02 [facility] 40.0 [facility] HEMATOLOGY Segs 69.1 % 45.0 - 02 [facility] 75.0 [facility] URINALYSIS UA Glucose 500mg/dL 10/06 NA [facility] URINALYSIS UA <=1.0 0.1 - 1.0 10/06 NA [facility] Urobilinogen mg/dL /2012 Medical
*NA*< Center br/>(10/06 11:42:00) <sup> </sup> URINALYSIS Micro? Performed 10/06 NA [facility] *NA* Center (10/06/2012 11:42:00) URINALYSIS UA [place] Yeast Moderate /HPF None Seen 10/06 [facility] *ABN* Center (10/06/2012 11:42:00) URINALYSIS UA RBC 3 /HPF 0 - 2 10/06 HI [facility] URINALYSIS UA Bacteria Many /HPF None Seen 10/06 [facility] *ABN* [facility] (10/06/2012 11:42:00) URINALYSIS UA WBC 3 /HPF 0 - 5 10/06 Normal 2012 [facility] URINALYSIS UA Leuk Est Negative Negative 10/06 Normal [facility] (10/06/2012 11:42:00) Center URINALYSIS UA Nitrite Negative Negative 10/06 Normal [facility] (10/06/2012 11:42:00) Center URINALYSIS UA Sq Epi Many /LPF Few 10/06 [facility] *ABN* [facility] (10/06/2012 11:42:00) URINALYSIS UA Bili Negative Negative 10/06 NA [facility] *NA* [facility] (10/06/2012 11:42:00) URINALYSIS UA Blood Negative Negative 10/06 Normal [facility] (10/06/2012 11:42:00) Center URINALYSIS UA pH 5.5 5.0 - 8.0 10/06 Normal [facility] URINALYSIS UA Protein 20 mg/dL Negative 10/06 ABN [facility] *ABN* Center (10/06/2012 11:42:00) URINALYSIS UA Ketones >=150 mg/dL Negative 10/06 [facility] *ABN* Center (10/06/2012 11:42:00) URINALYSIS UA Color Yellow Yellow 10/06 NA [facility] *NA* Center (10/06/2012 11:42:00) URINALYSIS UA Turbidity Slight Clear 10/06 ABN [facility] *ABN* Center (10/06/2012 11:42:00) URINALYSIS UA Spec Grav 1.011 <=1.030 10/06 Normal [facility] URINALYSIS UA Mucus Few /LPF None Seen 10/06 NA [facility] *NA* [facility] (10/06/2012 11:42:00) Microbiolog Culture: 10/06 [facility] y [facility] CHEMISTRY Phosphorus 2.5 mg/dL 2.5 - 4.5 10/06 Normal [facility] CHEMISTRY Magnesium Lvl 1.5 mg/dL 1.8 - 2.4 10/06 LOW [facility] CHEMISTRY eGFR 76 10/06 NA 6Result Comment: The eGFR is calculated using the CKD-EPI formula. In most young, healthy individuals the eGFR will be > 90 mL/min/1.73m2. The eGFR declines with age. An eGFR of 60-89 may be normal in [facility] mL/min/1. some populations, particularly the elderly, for whom the CKD-EPI formula has not been extensively validated. Use of the eGFR is not recommended in the following populations: [address] Individuals with unstable creatinine concentrations, including [...] 3.9 meq/L 3.5 - 5.1 10/06 Normal [facility] CHEMISTRY Chloride Lvl 97 meq/L 95 - 109 10/06 Normal [facility] CHEMISTRY Calcium Lvl 8.3 mg/dL 8.5 - 10.5 10/06 LOW [facility] CHEMISTRY CO2 22 meq/L 24 - 32 10/06 LOW [facility] CHEMISTRY Glucose Lvl 234 mg/dL 70 - 99 10/06 HI 9Interpretive Data: Adult reference range values reflect the clinical guidelines of the [employer]. [facility] CHEMISTRY Creatinine 0.9 mg/dL 0.5 - 1.4 10/06 Normal [facility] CHEMISTRY BUN 9 mg/dL 7 - 22 10/06 Normal [facility] CHEMISTRY Sodium Lvl 134 meq/L 135 - 145 10/06 LOW [facility] CHEMISTRY AGAP 18.9 meq/L 10.0 - 10/06 Normal [place] 20.0 [facility] HEMATOLOGY Segs-Bands # 13.3 K/CMM 1.5 - 8.1 10/06 HI [facility] HEMATOLOGY Basophils 0.2 % 0.0 - 1.0 10/06 Normal [facility] HEMATOLOGY Eosinophils 0.1 % 0.0 - 4.0 10/06 Normal [facility] HEMATOLOGY Monocytes 6.7 % 2.0 - 12.0 10/06 Normal [facility] HEMATOLOGY Segs 81.7 % 45.0 - 10/06 [facility] [place] 75.0 [facility] HEMATOLOGY Lymphocytes 11.3 % 20.0 - 10/06 [facility] [place] 40.0 [facility] HEMATOLOGY Microcyte 1+ None Seen 10/06 [facility] Medical *ABN* Center (10/06/2012 04:25:00) HEMATOLOGY Monocytes # 1.1 K/CMM 0.0 - 0.8 10/06 HI [facility] HEMATOLOGY Lymphocytes # 1.8 K/CMM 1.0 - 5.5 10/06 Normal [facility] HEMATOLOGY RBC 4.28 M/CMM 4.20 - 10/06 Normal [place] 5.40 /2012 [facility] HEMATOLOGY WBC 16.3 K/CMM 3.7 - 10.4 10/06 [facility] HEMATOLOGY Hgb 10.3 g/dL 12.0 - 10/06 [facility] [place] 16.0 [facility] HEMATOLOGY Hct 32.6 % 36.0 - 10/06 [facility] [place] 48.0 /2012 [facility] HEMATOLOGY MCH 24.0 pg 27.0 - 10/06 LOW [place] 31.0 [facility] HEMATOLOGY MCV 76.1 fL 81.0 - 10/06 [facility] [place] 99.0 /2012 [facility] HEMATOLOGY MCHC 31.5 g/dL 32.0 - 10/06 [facility] [place] 36.0 [facility] HEMATOLOGY RDW 17.2 % 11.5 - 10/06 [facility] [place] 14.5 /2012 [facility] HEMATOLOGY Platelet 248 K/CMM 133 - 450 10/06 Normal [facility] HEMATOLOGY MPV 9.5 fL 7.4 - 10.4 10/06 Normal [facility] CHEMISTRY Ca Norm 1.07 1.16 - 10/05 LOW [facility] mMol/L 1. [facility] CHEMISTRY Ca Ion mgdL 4.36 mg/dL 4.65 - 10/05 LOW [place] 5. [facility] CHEMISTRY Ca Norm mgdL 4.28 mg/dL 4.65 - 10/05 LOW [facility] 5. [facility] CHEMISTRY Ca Ion 1.09 1.16 - 10/05 LOW [facility] mMol/L . [facility] HEMATOLOGY Basophils # 0.1 K/CMM 0.0 - 0.2 10/05 Normal [facility] HEMATOLOGY Eosinophils # 0.1 K/CMM 0.0 - 0.5 10/05 Normal [facility] CHEMISTRY U Preg Negative Negative 10/03 Normal Medical (10/03/2012 06:31:00) Center BLOOD BANK ABO/Rh A POS 10/03 Unknown [facility] BLOOD BANK Antibody Scrn Negative 10/03 Normal [facility] Medical (10/03/2012 06:00:00) Center CHEMISTRY Total Protein 7.8 g/dL 6.4 - 8.4 09/23 Normal [facility] CHEMISTRY AST 31 unit/L 0 - 37 09/23 Normal [facility] CHEMISTRY Bili Total 0.3 mg/dL 0.2 - 1.3 09/23 Normal [facility] CHEMISTRY ALT 50 unit/L 0 - 65 09/23 Normal [facility] CHEMISTRY Albumin Lvl 3.6 g/dL 3.5 - 5.0 09/23 Normal [facility] CHEMISTRY Alk Phos 150 unit/L 39 - 136 09/23 HI [facility] CHEMISTRY B/C Ratio 21 6 - 25 09/23 Normal [facility] CHEMISTRY Globulin 4.2 g/dL 2.0 - 4.0 09/23 [facility] CHEMISTRY A/G Ratio 0.9 0.7 - 1.6 09/23 Normal [facility] HEMATOLOGY Hypochrom Slight None Seen 09/23 Normal Medical (09/23/2012 12:35:00) Center HEMATOLOGY Elliptocyte Slight None Seen 09/23 [facility]N Medical *ABN* Center (09/23/2012 12:35:00) HEMATOLOGY Basophils # 0.1 K/CMM 0.0 - 0.2 09/23 Normal [facility] HEMATOLOGY Plt Morph Normal 09/23 Normal [facility] (09/23/2012 12:35:00) Center URINALYSIS UA <=1.0 0.1 - 1.0 09/23 NA [facility] Urobilinogen mg/dL /2012 Medical
*NA*< Center br/>(09/23 12:35:00) <sup> </sup> URINALYSIS UA Nitrite Negative Negative 09/23 Normal [facility] (09/23/2012 12:35:00) Center URINALYSIS UA Blood Negative Negative 09/23 Normal [facility] (09/23/2012 12:35:00) Center URINALYSIS UA Leuk Est Negative Negative 09/23 Normal [facility] (09/23/2012 12:35:00) Center URINALYSIS Micro? Not Indicated 09/23 NA [facility] *NA* [facility] (09/23/2012 12:35:00) URINALYSIS UA Ketones Negative mg/dL Negative 09/23 [facility] *NA* [place] (09/23/2012 12:35:00) URINALYSIS UA Bili Negative Negative 09/23 [facility] *NA* [place] (09/23/2012 12:35:00) URINALYSIS UA Protein Negative mg/dL Negative 09/23 Normal [facility] (09/23/2012 12:35:00) Center URINALYSIS UA pH 5.0 5.0 - 8.0 09/23 Normal [facility] Center URINALYSIS UA Glucose Negative mg/dL Negative 09/23 [facility] *NA* [facility] (09/23/2012 12:35:00) URINALYSIS UA Color Light Yellow Yellow 09/23 NA [facility] *NA* [place] (09/23/2012 12:35:00) URINALYSIS UA Spec Grav 1.004 <=1.030 09/23 Normal [facility] URINALYSIS UA Turbidity Clear Clear 09/23 Normal Medical (09/23/2012 12:35:00) Center BEDSIDE Gluc POC 153 mg/dL 70 - 99 06/28 HI 1Interpretive [facility] GLUCOSE Lifsc Data: Medical TESTING Center Upper Reportable Limit: 200 mg/dL. CHEMISTRY U Preg Negative Negative 06/28 Normal Medical (06/28/2012 07:27:00) Center Vital Signs Vital Sign Value Date Comments Source Systolic (mm Hg) 124 08/13/2013 [facility] Respitory Rate 18 08/13/2013 [facility] Temperature Oral (F) 98.8 F 08/13/2013 [facility] Heart Rate 102 08/13/2013 [facility] Diastolic (mm Hg) 46 08/13/2013 [facility] Systolic (mm Hg) 107 08/13/2013 [facility] Respitory Rate 18 08/13/2013 [facility] Diastolic (mm Hg) 63 08/13/2013 [facility] Heart Rate 103 08/13/2013 [facility] Heart Rate 105 08/13/2013 [facility] Respitory Rate 18 08/13/2013 [facility] Systolic (mm Hg) 117 08/13/2013 [facility] Diastolic (mm Hg) 70 08/13/2013 [facility] Weight 81.818 08/13/2013 [facility] Height 162.56 cm 08/13/2013 [facility] Temperature Oral (F) 98.4 F 08/13/2013 [facility] Diastolic (mm Hg) 61 07/15/2013 [facility] Temperature Oral (F) 97.7 F 07/15/2013 [facility] Systolic (mm Hg) 117 07/15/2013 [facility] Respitory Rate 18 07/15/2013 [facility] Heart Rate 90 07/15/2013 [facility] Respitory Rate 18 07/14/2013 [facility] Heart Rate 104 07/14/2013 [facility] Diastolic (mm Hg) 46 07/14/2013 [facility] Systolic (mm Hg) 91 07/14/2013 [facility] Diastolic (mm Hg) 61 07/14/2013 [facility] Systolic (mm Hg) 95 07/14/2013 [facility] Respitory Rate 18 07/14/2013 [facility] Heart Rate 120 07/14/2013 [facility] Temperature Oral (F) 97.5 F 07/14/2013 [facility] Temperature Oral (F) 97.6 F 07/14/2013 [facility] Height 162.56 cm 07/12/2013 [facility] Weight 86.364 07/12/2013 [facility] Temperature Oral (F) 97.1 F 04/03/2013 [facility] Respitory Rate 18 04/03/2013 [facility] Heart Rate 79 04/03/2013 [facility] Center Diastolic (mm Hg) 66 04/03/2013 [facility] Center Systolic (mm Hg) 94 04/03/2013 [facility] Center Diastolic (mm Hg) 28 04/03/2013 [facility] Systolic (mm Hg) 116 04/03/2013 [facility] Center Respitory Rate 20 04/03/2013 [facility] Heart Rate 100 04/03/2013 [facility] Temperature Oral (F) 97.0 F 04/03/2013 [facility] Height 162.56 cm 04/03/2013 [facility] Weight 90 04/03/2013 [facility] Height 162.56 cm 04/02/2013 [facility] Weight 90 04/02/2013 [facility] Systolic (mm Hg) 132 03/09/2013 [facility] Center Diastolic (mm Hg) 72 03/09/2013 [facility] Heart Rate 114 03/09/2013 [facility] Temperature Oral (F) 97.7 F 03/09/2013 [facility] Respitory Rate 20 03/09/2013 [facility] Temperature Oral (F) 97.7 F 03/09/2013 [facility] Heart Rate 108 03/09/2013 [facility] Center Systolic (mm Hg) 143 03/09/2013 [facility] Center Respitory Rate 18 03/09/2013 [facility] Diastolic (mm Hg) 81 03/09/2013 [facility] Heart Rate 115 03/09/2013 [facility] Center Diastolic (mm Hg) 70 03/09/2013 [facility] Center Systolic (mm Hg) 153 03/09/2013 [facility] Center Respitory Rate 18 03/09/2013 [facility] Temperature Oral (F) 97.5 F 03/09/2013 [facility] Weight 90 03/07/2013 [facility] Height 162.56 cm 03/07/2013 [facility] Height 162.56 cm 03/06/2013 [facility] Center Weight 90 03/06/2013 [facility] Center Systolic (mm Hg) 127 12/07/2012 [facility] Center Diastolic (mm Hg) 49 12/07/2012 [facility] Heart Rate 90 12/07/2012 [facility] Temperature Oral (F) 98.3 F 12/07/2012 [facility] Center Respitory Rate 18 12/07/2012 [facility] Center Systolic (mm Hg) 104 12/07/2012 [facility] Temperature Oral (F) 98.6 F 12/07/2012 [facility] Respitory Rate 18 12/07/2012 [facility] Heart Rate 78 12/07/2012 [facility] Center Diastolic (mm Hg) 57 12/07/2012 [facility] Heart Rate 89 12/07/2012 [facility] Temperature Oral (F) 97.6 F 12/07/2012 [facility] Respitory Rate 18 12/07/2012 [facility] Center Systolic (mm Hg) 105 12/07/2012 [facility] Center Diastolic (mm Hg) 51 12/07/2012 [facility] Weight 100 11/29/2012 [facility] Height 162.56 cm 11/29/2012 [facility] Weight 100.568 11/29/2012 [facility] Center Height 162.56 cm 11/29/2012 [facility] Weight 101.364 11/28/2012 [facility] Height 162.56 cm 11/28/2012 [facility] Center Diastolic (mm Hg) 55 11/17/2012 [facility] Center Systolic (mm Hg) 117 11/17/2012 [facility] Center Diastolic (mm Hg) 70 11/17/2012 [facility] Center Systolic (mm Hg) 118 11/17/2012 [facility] Center Diastolic (mm Hg) 61 11/17/2012 [facility] Center Systolic (mm Hg) 154 11/17/2012 [facility] Temperature Oral (F) 97.8 F 11/17/2012 [facility] Temperature Oral (F) 97.9 F 11/17/2012 [facility] Temperature Oral (F) 98.6 F 11/17/2012 [facility] Height 162.56 cm 11/17/2012 [facility] Weight 103.21 11/17/2012 [facility] Respitory Rate 18 11/17/2012 [facility] Height 162.56 cm 11/16/2012 [facility] Center Weight 100 11/16/2012 [facility] Center Diastolic (mm Hg) 58 11/14/2012 [facility] Center Systolic (mm Hg) 121 11/14/2012 [facility] Center Respitory Rate 20 11/14/2012 [facility] Heart Rate 84 11/14/2012 [facility] Temperature Oral (F) 98.0 F 11/14/2012 [facility] Respitory Rate 20 11/14/2012 [facility] Center Systolic (mm Hg) 103 11/14/2012 [facility] Center Diastolic (mm Hg) 54 11/14/2012 [facility] Temperature Oral (F) 98.0 F 11/14/2012 [facility] Heart Rate 83 11/14/2012 [facility] Center Diastolic (mm Hg) 68 11/14/2012 [facility] Respitory Rate 20 11/14/2012 [facility] Heart Rate 79 11/14/2012 [facility] Systolic (mm Hg) 136 11/14/2012 [facility] Temperature Oral (F) 98.4 F 11/14/2012 [facility] Height 162.56 cm 11/06/2012 [facility] Weight 100 11/06/2012 [facility] Center Height 162.56 cm 11/06/2012 [facility] Weight 100 11/06/2012 [facility] Height 162.56 cm 11/06/2012 [facility] Weight 104.545 11/06/2012 [facility] Systolic (mm Hg) 131 11/01/2012 [facility] Center Diastolic (mm Hg) 62 11/01/2012 [facility] Center Systolic (mm Hg) 125 11/01/2012 [facility] Center Diastolic (mm Hg) 62 11/01/2012 [facility] Center Systolic (mm Hg) 155 10/31/2012 [facility] Center Diastolic (mm Hg) 54 10/31/2012 [facility] Temperature Oral (F) 99.7 F 10/31/2012 [facility] Temperature Oral (F) 96.7 F 10/31/2012 [facility] Temperature Oral (F) 98.1 F 10/31/2012 [facility] Respitory Rate 19 10/31/2012 [facility] Respitory Rate 19 10/31/2012 [facility] Respitory Rate 19 10/31/2012 [facility] Center Weight 78.2 10/24/2012 [facility] Medical Center Heart Rate 126 10/23/2012 [facility] Medical Center Heart Rate 130 10/23/2012 [facility] Weight 113.636 10/23/2012 [facility] Center Height 162.56 cm 10/23/2012 [facility] Center Heart Rate 119 10/23/2012 [facility] Height 162.56 cm 10/23/2012 [facility] Medical Center Systolic (mm Hg) 123 10/08/2012 [facility] Medical Center Respitory Rate 19 10/08/2012 [facility] Medical Center Diastolic (mm Hg) 51 10/08/2012 [facility] Center Heart Rate 81 10/08/2012 [facility] Center Temperature Oral (F) 98.8 F 10/08/2012 [facility] Medical Center Diastolic (mm Hg) 55 10/08/2012 [facility] Center Respitory Rate 20 10/08/2012 [facility] Center Systolic (mm Hg) 136 10/08/2012 [facility] Center Heart Rate 82 10/08/2012 [facility] Center Temperature Oral (F) 98.9 F 10/08/2012 [facility] Medical Center Diastolic (mm Hg) 47 10/08/2012 [facility] Medical Center Systolic (mm Hg) 107 10/08/2012 [facility] Center Temperature Oral (F) 98.1 F 10/08/2012 [facility] Center Respitory Rate 18 10/08/2012 [facility] Heart Rate 75 10/08/2012 [facility] Weight 118.200 10/03/2012 [facility] Center Height 162.56 cm 10/03/2012 [facility] Center Weight 118.182 09/23/2012 [facility] Center Height 162.56 cm 09/23/2012 [facility] Center Diastolic (mm Hg) 57 06/28/2012 [facility] Center Heart Rate 104 06/28/2012 [facility] Medical Center Respitory Rate 18 06/28/2012 [facility] Center Systolic (mm Hg) 147 06/28/2012 [facility] Center Systolic (mm Hg) 153 06/28/2012 [facility] Medical Center Diastolic (mm Hg) 61 06/28/2012 [facility] Medical Center Respitory Rate 16 06/28/2012 [facility] Center Systolic (mm Hg) 136 06/28/2012 [facility] Medical Center Diastolic (mm Hg) 52 06/28/2012 [facility] Respitory Rate 18 06/28/2012 [facility] Temperature Oral (F) 98.5 F 06/28/2012 [facility] Heart Rate 104 06/28/2012 [facility] Weight 118.182 06/14/2012 [facility] Height 162.56 cm 06/14/2012 [facility] Encounters Location Location Encounter Encounter Reason Attending ADM DC Status Source Details Type Number For Visit Provider Date Date [facility] DS [id number] DSU/ WOLFGANG 06/28 Active [facility] REFLUX SUSHILA /2011 [facility] Inpatient [id number] WOLFGANG 10/03 10/08 Active [facility] SUSHILA /2012 [facility] Inpatient [id number] N/V DARELL 10/23 11/01 Active [facility] DEHYDRATI SDRINGOLA- /2012 [facility] ON MARANGA [facility] Inpatient [id number] LAVONE 11/05 11/14 Active [facility] ROSE /2012 [facility] OU [id number] CHIP 11/16 11/17 Active [facility] MARKUS /2012 [facility] Inpatient [id number] JUAN J 11/29 12/07 Active [facility] Medical BRANDO /2012 [facility] OU [id number] SANJUANA 03/07 03/09 Active [facility] OSUAGWU /2012 [facility] OU [id number] JEANNIE 04/02 04/03 Active [facility] ADOLFO /2012 [facility] OU [id number] GASTROPAR JEANNIE 07/12 07/14 Active [facility] ESIS ADOLFO /2012 [facility] JACKIE [id number] WOLFGANG 07/26 07/27 Active [facility] SUSHILA /2012 [facility] Emergency [id number] KATELYN 08/13 08/13 Active [facility] TORYCZ /2012 [facility] Outpatient [id number] SERGO WHITFIELD Cancel [facility] Procedures Procedure Code Date Perfomer Comments Source section [id number] [facility] Cholecystectomy [id number] [facility] <sup>1</sup> [facility] Hand repair [id number], x'2 [facility] <sup>2</sup> [facility] Tonsillectomy [id number] [facility] <sup>3</sup> [facility] Bypass of stomach [id number] [facility] Rotator cuff repair [id number] [facility] Heart procedure [id number] 1cardiac [facility] <sup>1</sup> stent for [facility]
--- OUTSIDE RECORDS SUMMARY | 2018-12-12 13:10 | XMS REPORT | CCD ---
:1965 Author Organization [facility] Care Team Providers Name Role [...]
--- OUTSIDE RECORDS SUMMARY | 2018-12-12 13:11 | XMS REPORT | CCD ---
:1965 Author Organization [facility] Care Team Providers Name Role Phone Sukhwinder Renteria Referring Provider Allergies, Adverse Reactions, Alerts Substance Reaction Status NKDA Active Problem List Condition Effective Dates Status Acid reflux Resolved Anemia Resolved Anxiety Resolved Arthritis Resolved Depression Resolved Diabetes mellitus type 1 Resolved Edema of lower extremity Resolved Fibromyalgia Resolved Hyperlipidemia Resolved Hypertension Resolved Medications Medication Instructions Start Date End Date Status [place] 325 mg-10 mg / 15 mL, Route: [...] Duration: 30 day, Stop date: 11/02/12 10:59:00 [place] 325 mg-10 mg / 30 mL, Route: PO, 10/04/2012 10/05/2012 Discontinued 15 mL oral solution Drug Form: SOLN, Dosing Weight 118.2, kg, Q4H, PRN Pain Score 6-10, Start date: 10/04/12 17:20:00, Duration: 30 day, Stop date: 11/03/12 17:19:00 [place] 325 mg-10 mg / 15 mL, Route: [...] 14:28:00, PRN Blood Glucose Results Blistex Lip [place] Route: TOP, Dosing 10/06/2012 10/06/2012 Deleted Weight [...] /LPF] Few /LPF *NA* (10/06/2012 11:42:00) UA [place] Yeast [None Seen /HPF] Moderate /HPF *ABN* [...] values reflect the clinical guidelines of the [place] [employer].8Interpretive Data: Adult reference range values reflect the clinical guidelines of the [place] [employer].9Interpretive Data: Adult reference range values reflect the clinical guidelines of the [place] [employer].HEMATOLOGY Most recent to oldest 1 [...] Catch FREE TEXT SOURCE: FINAL REPORTS Final Tmvxpo34,000 - 50,000 CFU/mL Enterococcus SpeciesPRELIMINARY REPORTS Preliminary Filjpj05,000 - 50,000 CFU/ mL Enterococcus Species ; Sensitivity PendingSUSCEPTIBILITY REPORT ENTERO Antibiotic INTERP. VDIL Ampicillin S Levofloxacin S Nitrofurantoin S Tetracycline R Vancomycin S Procedures Procedures Date Related Diagnosis section Cholecystectomy 1 Hand repair 2 Tonsillectomy 3 , [id number]
--- OUTSIDE RECORDS SUMMARY | 2018-12-12 13:12 | XMS REPORT | CCD ---
:1965 Author Organization [facility] Care Team Providers Name Role Phone Milton Arabella Ruelas Consulting Provider Ezio Sifuentes Consulting Provider Allergies, Adverse Reactions, Alerts Substance Reaction Status NKDA Active Problem List Condition Effective Dates Status Acid reflux Resolved Anemia Resolved Anxiety Resolved Arthritis Resolved Depression Resolved Diabetes mellitus type 1 Resolved Edema of lower extremity Resolved Fibromyalgia Resolved Hyperlipidemia Resolved Hypertension Resolved MRSA1, 2 10/23/2012 Active 1nares 10/23/201248177Ebejluv added by Discern Expert. Medications Medication Instructions [...] Duration: 30 day, Stop date: 12/06/12 1:48:00 [place] 5/325 oral tablet 1 tab, PO, Q6H, [...] Duration: 30 day, Stop date: 12/08/12 10:44:00 [place] 5/325 oral tablet 1 tab, Route: PO, [...] INJ, Q2H, Dosing Weight 100, kg, Total fdlf=3795 mg, Start date: 11/14/12 8:00:00, Duration: 2 [...] 11/08/2012 11/08/2012 Canceled PO, Drug form: TAB, [id number], Dosing Weight 100, kg, Start date: 11/08/12 [...] [Negative] Negative 1 (11/12/2012 21:54:26) 1Interpretive Data: [employer] Clostridium difficile assay utilizes loop-mediated isothermalDNA amplification [...] values reflect the clinical guidelines of the [place] [employer].10Interpretive Data: Adult reference range values reflect the clinical guidelines of the [place] [employer].11Result Comment: rechecked Critical Result (s) called leslie Conner Rose at 11/12/2012 02:56:37 GRAPHIC PRODUCTION ARTIST by_mgm. Read back OK.12Interpretive Data: Adult reference range values reflect the clinical guidelines of the [place] [employer].13Result Comment: Critical Result(s) called to [...] 10.0 240 Poor Control, take action to eexsc32Kmyngt Comment : Critical Result(s) called leslie Rose [...] Catch FREE TEXT SOURCE: FINAL REPORTS Final Ntwdmh92,000 - 100,000 CFU/mL Enterococcus SpeciesPRELIMINARY REPORTS Preliminary Kvqyck98,000 - 100,000 CFU/ mL Enterococcus Species Identification And Sensitivity PendingSUSCEPTIBILITY REPORT ENTERO Antibiotic INTERP. VDIL Ampicillin S Levofloxacin S Nitrofurantoin S Tetracycline R Vancomycin S
--- OUTSIDE RECORDS SUMMARY | 2018-12-12 13:13 | XMS REPORT | CCD ---
:[address] [facility] [place] [place] Care Team Providers Name Role Phone Nikhil Hager Consulting Provider Sukhwinder Renteria Consulting Provider Allergies, Adverse Reactions, Alerts Substance Reaction Status NKDA Active Problem List Condition Effective Dates Status Acid reflux Resolved Anemia Resolved Anxiety Resolved Arthritis Resolved Depression Resolved Diabetes mellitus type 1 Resolved Edema of lower extremity Resolved Fibromyalgia Resolved Hyperlipidemia Resolved Hypertension Resolved MRSA1, 2 10/23/2012 Active 1nares 10/23/201215211Gemkdcf added by Discern Expert. Medications Medication Instructions [...] mg, 1 supp, 10/23/2012 11/01/2012 Discontinued Route: ID, Drug form: SUPP, Q6H, Dosing Weight 113.636, kg, PRN Fever, Start date: 10/23/12 0:37:00, Duration: 30 day, Stop date: 11/22/12 0:36:00 Visipaque 320mg/ml 126 mL, Route: IVP, Drug Form: SOLN, Dosing Weight 113.636 , kg, ONCALL, STAT, Start date: 10/23/12 16:52:00, Duration: 1 doses or times, Dose=2.2ml/kg, Max bcqw=621wj -- "To be infused by Radiology Staff ONLY" 10/2310/23/2012 Completed Dose=2.2ml/kg, Max avoj=557ad -- "To be infused by Radiology Staff [...] mg, 1 supp, 10/24/2012 10/24/2012 Deleted Route: ID, Drug form: SUPP, ONCE, Dosing Weight 78.2, [...] Duration: 1 doses or times, Dose=2.2ml/kg, Max wwqx=959fo -- "To be infused by Radiology Staff ONLY" 10/2310/23/2012 Completed Dose=2.2ml/kg, Max ztat=699ss -- "To be infused by Radiology Staff [...] Molecular Diagnostic Laboratory within the [facility]. The Molecular Diagnostic Laboratory is authorized under [...] the clinical guidelines of the [place] [employer].11Interpretive Data: Adult reference range values reflect the clinical guidelines of the [place] [employer].12Interpretive Data: Adult reference range values reflect the clinical guidelines of the [place] [employer].13Interpretive Data: Reference range is based on recommendations in the Endocrine Society Clinical Practice Guideline (J Clin Endocrinol Metab 2011;96:5582-2493)14Result Comment: Specimen Moderately Hemolyzed.15Result Comment: Critical Result(s) called to daisy otoole at 10/25/2012 01:18:09 INSULATING MACHINE OPERATOR by tac. Read back OK.16Result Comment: Critical Result(s) called to Maribel Bustos at 10/24/2012 13:23:46 INSULATING MACHINE OPERATOR by lwb . Readback OK.17Result Comment: Critical Result(s) called to Lyn King at 10/24/2012 09:52:38 INSULATING MACHINE OPERATOR by lwb . Read back OK.18Result Comment: Critical Result(s) called to Jelani Rasmussen at 10/25/2012 00: 47:48 INSULATING MACHINE OPERATOR by RM. Read back OK.19Result Comment: Critical Result(s) called to mariana bustos at _ 10/24/2012 13:37:22 CSTby_lss. Readback OK.20Result Comment : Critical Result(s) called to romero beltre at _10/24/2012 09:50:18 INSULATING MACHINE OPERATOR by_lss. Read back OK.21Interpretive Data: [...] Data: Heparin Therapeutic Range: 57 - 92 Rrkadds52Jmmjhflrxgwq Data: Heparin Therapeutic Range: 57 - 92 Cyphrxw13Widnlhykwggj Data: Heparin Therapeutic Range: 57 - 92 Seconds Microbiology Reports PROCEDURE:Culture: Urine STATUS: Auth (Verified) BODY SITE: COLLECTED DATE/TIME: 10/23/2012 20:33:00 SOURCE: Urine,Straight Cath FREE TEXT SOURCE: FINAL REPORTS Final Ulcxri51,000 - 100,000 CFU/mL Gram Negative Rods , Lactose Fermenters , 2 [place] Types 50,000 - 100,000 CFU/mL Enterococcus Species [...]
--- OUTSIDE RECORDS SUMMARY | 2018-12-12 13:14 | XMS REPORT | CCD ---
:1965 Author Organization [facility] Care Team Providers Name Role Phone Emeli Clark Consulting Provider Allergies, Adverse Reactions, Alerts Substance Reaction Status NKDA Active Problem List Condition Effective Dates Status Acid reflux Resolved Anemia Resolved Anxiety Resolved Arthritis Resolved Depression Resolved Diabetes mellitus type 1 Resolved Edema of lower extremity Resolved Fibromyalgia Resolved Hyperlipidemia Resolved Hypertension Resolved MRSA1, 2 10/23/2012 Active 1nares 10/23/201249547Dekenbb added by Discern Expert. Medications Medication Instructions [...] 1 doses or times, Dose= 2.2ml/kg, Max zldc=020rj -- "To be infused by Radiology Staff ONLY" 201211/16/2012 Discontinued Dose=2.2ml/kg, Max cikz=091tv -- "To be infused by Radiology Staff ONLY" calcium gluconate + Sodium 2,000 mg, 20 mL, Route: 11/17/2012 11/17/2012 Completed Chloride 0.9% IV 80 mL IVPB, ONCE, Dosing Weight 103.21, kg, Start date: 11/17/12 11:02:00, Stop date: 11/17/12 11:02:00 enoxaparin 40 mg, 0.4 mL, Route: 11/16/2012 11/17/2012 Discontinued SUB-Q, Drug form: INJ, [id number], Dosing Weight 100, kg, Start date: 11/16/12 [...] date: 11/16/12 13:40:00, Stop date: 11/16/12 13:40:00 [place] 5/325 oral tablet 1 tab, Route: PO, [...] values reflect the clinical guidelines of the [place] Diabetes [employer].7Interpretive Data: Adult reference range values reflect the clinical guidelines of the [place] Diabetes [employer].HEMATOLOGY Most recent to oldest [Reference [...]
--- OUTSIDE RECORDS SUMMARY | 2018-12-12 13:15 | XMS REPORT | CCD ---
:1965 Author Organization [facility] Care Team Providers Name Role Phone Marcela Michaelsbhumika Westbrook Consulting Provider Alberto Mata Consulting Provider Allergies, Adverse Reactions, Alerts Substance Reaction Status NKDA Active Problem List Condition Effective Dates Status Acid reflux Resolved Anemia Resolved Anxiety Resolved Arthritis Resolved Depression Resolved Diabetes mellitus type 1 Resolved Edema of lower extremity Resolved Fibromyalgia Resolved Hyperlipidemia Resolved Hypertension Resolved [place] - Myocardial infarction 10/22/2012 Resolved MRSA1, 2, 3, 4 10/23/2012 Active Neuropathy Resolved - Nares - Bwtgg8jugka 10/23/201293496Kejwfoz added by Discern Expert. Medications Medication Instructions [...] IVPB, Drug 12/02/2012 12/02/2012 Discontinued form: PDR/INJ, [id number], Dosing Weight 100, kg, Start date: 12/02/12 [...] 11/29/2012 11/29/2012 Discontinued SUB-Q, Drug form: INJ, wzhzK52W, Dosing Weight 101.364, kg, Start date: 11/29/12 [...] mg, 1 supp, Route: 12/04/2012 12/07/2012 Discontinued VT, Drug form: SUPP, Q4H, Dosing Weight 100, [...] date: 12/04/12 23:39:00, Stop date: 12/04/12 23:39:00 [place] 7.5/325 oral tablet 1 tab, Route: PO, [...] IVPB, Drug 11/29/2012 12/01/2012 Discontinued form: PDR/INJ, [id number], Dosing Weight 100, kg, Start date: 11/29/12 [...] 7:47:00 Phenergan 25 mg rectal 1 supp, VT, Q6H, PRN, 9 11/29/2012 Ordered suppository supp, [...] by the Molecular Diagnostic Laboratory within the [facility]. The Molecular Diagnostic Laboratory is [...] the clinical guidelines of the [place] Diabetes Association.11Interpretive Data: Adult reference range values reflect the clinical guidelines of the [place] Diabetes Association.12Interpretive Data: Adult reference range values reflect the clinical guidelines of the [place] Diabetes [employer].13Interpretive Data: No established reference ranges.14Interpretive [...] Data: Heparin Therapeutic Range: 57 - 92 Mblltio27Tkcuqhubqjvf Data: Heparin Therapeutic Range: 57 - 92 [...] Catch FREE TEXT SOURCE: FINAL REPORTS Final Wnbcst86,000 - 50,000 CFU/mL Yeast <10,000 CFU/mL Skin EsPRELIMINARY REPORTS Preliminary ReportNo Growth; Holding Procedures Procedures Date Related Diagnosis Heart procedure 1 1cardiac stent for [place]
[2018-12-12 13:16] LABS: Potassium 4.8 mmol/L (3.5-5.1)
--- OUTSIDE RECORDS SUMMARY | 2018-12-12 13:16 | XMS REPORT | CCD ---
:[address] [facility] Care Team Providers Name Role Phone JohnbeckiReno rossi Consulting Provider Carlos Hanley Consulting Provider Allergies, Adverse Reactions, Alerts Substance Reaction Status NKDA Active Problem List Condition Effective Dates Status Acid reflux Resolved Anemia Resolved Anxiety Resolved Arthritis Resolved Depression Resolved Diabetes mellitus type 1 Resolved Edema of lower extremity Resolved Fibromyalgia Resolved Gastric ulcer Resolved Hyperlipidemia Resolved Hypertension Resolved [place] - Myocardial infarction 10/22/2012 Resolved MRSA1, 2, 3, 4 10/23/2012 Active Neuropathy Resolved - Nares/ - Xhdwo2ogctt 10/23/201211419Bngviyj added by Discern Expert. Medications Medication Instructions [...] 03/08/13 3:17:00, Stop date: 03/08/13 3:17:00 lidocaine-epi 1%-1:795096 1 ml, Route: SUB-Q, Drug 03/07/2013 03/07/2013 [...] date: 03/07/13 2:35:00, Stop date: 03/07/13 2:35:00 [place] 5/325 oral tablet 1 tab, PO, Q6H, [...] BEDSIDE GLUCOSE TESTING Most recent to [facility] 1 2 3 [Reference Range]: Gluc POC [...] Limit: 200 mg/dL.URINALYSIS Most recent to [facility] [Reference Range]: 1 2 3 UA Turbidity [...] Mark [7.28-7.42] 7.46 *HI* (03/06/2013 22:20:43) pCO2 Makr [38-52 mmHg] 29 mmHg *LOW* (03/06/2013 22:20:43) [...] values reflect the clinical guidelines of the [place] Diabetes Association.8Interpretive Data: Adult reference range values reflect the clinical guidelines of the [place] Diabetes [employer].9Interpretive Data: Adult reference range values reflect the clinical guidelines of the [place] Diabetes Association.HEMATOLOGY Most recent to oldest 1 [...]
--- OUTSIDE RECORDS SUMMARY | 2018-12-12 13:17 | XMS REPORT | CCD ---
[...] Gastric ulcer Resolved Hyperlipidemia Resolved Hypertension Resolved [place] - Myocardial infarction 10/22/2012 Resolved MRSA1, 2, 3, 4 10/23/2012 Active Neuropathy Resolved - Nares - Wpdxd6yfoce 10/23/201201671Tymzedu added by Discern Expert. Medications Medication Instructions [...] the clinical guidelines of the [place] Diabetes Association.7Interpretive Data: Adult reference range values reflect the clinical guidelines of the [place] Diabetes Association.HEMATOLOGY Most recent to oldest [Reference [...]
--- OUTSIDE RECORDS SUMMARY | 2018-12-12 13:17 | XMS REPORT | CCD ---
:1965 Author Organization [facility] Care Team Providers Name Role Phone Alberto Matavor Consulting Provider Allergies, Adverse Reactions, Alerts Substance Reaction Status NKDA Active Problem List Condition Effective Dates Status Acid reflux Resolved Anemia Resolved Anxiety Resolved Arthritis Resolved Depression Resolved Diabetes mellitus type 1 Resolved Edema of lower extremity Resolved Fibromyalgia Resolved Gastric ulcer Resolved Hyperlipidemia Resolved Hypertension Resolved [place] - Myocardial infarction 10/22/2012 Resolved MRSA1, 2, 3, 4 10/23/2012 Active Neuropathy Resolved - Nares - Ghdaf8cwrva 10/23/201263163Lkqvlca added by Discern Expert. Medications Medication Instructions Start Date End Date Status acetaminophen-hydrocod 1 tab, Route: PO, Drug Form: 07/12/2013 07/14/2013 Discontinued one 325 mg-5 mg oral TAB, Dosing Weight 86.364, tablet kg, Q4H, PRN Pain, Start date: 07/12/13 18:23:00, Duration: 30 day, Stop date: 08/11/13 18:22:00(Same as: [place] 325/5) Do not exceed 4gm/day of acetaminophen. [...] 1 doses or times, Dose =2.2ml/kg, Max rtht=551xp -- "To be infused by Radiology Staff ONLY" 201207/12/2013 Completed Dose=2.2ml/kg, Max imyi=501pj -- "To be infused by Radiology Staff [...] day, Stop date: 08/11/13 9:00:00(Same as: Lopressor) [place] 5/325 oral 1 tab, Route: PO, Dosing [...] date: 08/11/13 9:00:00(Same as: Mag-Ox 400)Magnesium oxide 909nc=891uh elemental magnesiumDose=____mg magnesium oxide (___mg elemental magnesium) [...] [Negative] Negative 1 (07/13/2013 00:00:59) 1Interpretive Data: [employer] Clostridium difficile assay utilizes loop-mediated isothermalDNA amplification (LAMP) technology to detect a 204 bp region of the tcdA gene within the PaLoc genesegment present in all known toxigenic C. difficile strains. The assay utilizes FDA cleared IVD reagents. Performance characteristics have been verified by the Molecular Diagnostic Laboratory within the [facility]. The Molecular Diagnostic Laboratory is authorized under [...] /LPF] Many /LPF *ABN* (07/12/2013 03:00:00) UA [place] Yeast [None Seen /HPF] Moderate /HPF *ABN* [...] values reflect the clinical guidelines of the [place] Diabetes Association.9Interpretive Data: Adult reference range values reflect the clinical guidelines of the [place] Diabetes Association.10Interpretive Data: Adult reference range values reflect the clinical guidelines of the [place] Diabetes Association.HEMATOLOGY Most recent to oldest [Reference [...] to oldest [Reference Range]: 1 2 3 [place]-HIV 1/2 Ab [Negative] Negative *NA* (07/14/2013 00:27:00) [place]-Hep C Ab [Negative] Negative *NA* (07/14/2013 00:27:00) CDC-HIV 1/2 Ab [Negative] Negative *NA* (07/12/2013 16:02:06)
--- OUTSIDE RECORDS SUMMARY | 2018-12-12 13:17 | XMS REPORT | CCD ---
[...] 10/23/2012 Active Neuropathy Resolved - Nares - Bxbxv0jztcj 10/23/201224787Ztxbtvg added by Discern Expert. Medications Medication Instructions [...]
--- OUTSIDE RECORDS SUMMARY | 2018-12-12 13:18 | XMS REPORT | CCD ---
:1965 Author Organization [facility] Care Team Providers Name Role Phone Robert Wooten Consulting Provider Allergies, Adverse Reactions, Alerts Substance Reaction Status NKDA Active Problem List Condition Effective Dates Status Acid reflux Resolved Anemia Resolved Anxiety Resolved Arthritis Resolved Depression Resolved Diabetes mellitus type 1 Resolved Edema of lower extremity Resolved Fibromyalgia Resolved Gastric ulcer Resolved Hyperlipidemia Resolved Hypertension Resolved [place] - Myocardial infarction 10/22/2012 Resolved MRSA1, 2, 3, 4 10/23/2012 Active Neuropathy Resolved - Nares - Tdubt0ljwlo 10/23/201279980Tfzxquz added by Discern Expert. Medications Medication Instructions [...] values reflect the clinical guidelines of the [place] Diabetes Association.HEMATOLOGY Most recent to oldest [Reference [...]
--- OUTSIDE RECORDS SUMMARY | 2018-12-12 13:18 | XMS REPORT ---
:[address] [facility] Address [address] [place] [address] [address] [place] [address] Care Team Providers Name Role Phone SHANI [...] (BEAKER) (test 211 mg/dL 70-110 TESTED AT [address] cckk=[id number]) [place] [id number] POCT-GLUCOSE [id number] 13:04:00 Test Item Value Reference Range Comments POC-GLUCOSE METER (BEAKER) 282 mg/dL 70-110 TESTED AT [address] (test ysyt=4878) [place] [id number] POCT-GLUCOSE [id number] 14:35:00 Test Item Value Reference Range Comments POC-GLUCOSE METER (BEAKER) 200 mg/dL 70-110 TESTED AT [address] (test eysd=0038) [place] [address] [id number] 12:24:00 Test Item Value Reference Range Comments SODIUM (BEAKER) (test sxsf=392) 136 meq/L 136-145 POTASSIUM (BEAKER) (test catw=907) 5.4 meq/L 3.5-5.1 CHLORIDE (BEAKER) (test xwns=945) 102 meq/L 98-107 CO2 (BEAKER) (test cfox=411) 25 meq/L 22-29 [id number] 12:24:00 Test Item Value Reference Range Comments GLUCOSE RANDOM (BEAKER) (test xvpg=327) 353 mg/dL 70-105 BUN AND [id number] 12:24:00 Test Item Value Reference Range Comments BLOOD UREA NITROGEN 14 mg/dL 7-21 ([facility]) (test kniv=503) CREATININE ([facility]) (test 1.08 mg/dL 0.57-1.25 hecl=127) EGFR ([facility]) (test 53 mL/min/1.73 sq m ESTIMATED GFR IS NOT dgob=7984) ACCURATE CREATININE CLEARANCE IN PREDICTING GLOMERULAR FILTRATION RATE. ESTIMATED GFR IS NOT APPLICABLE FOR DIALYSIS PATIENTS. POCT-HEMOGLOBIN [id number] 11:43:00 Test Item Value Reference Range Comments POC-HEMOGLOBIN METER 12.1 g/dL 12.0-15.[address] ([facility]) (test dqwk=4646) [place] [address] POCT-GLUCOSE [id number] 11:43:00 Test Item Value Reference Range Comments POC-GLUCOSE METER ([facility]) 320 mg/dL 70-110 Verify with Lab draw/TESTED AT (test kkxy=5567) [place] [address] [address] [place] [address]
--- NOTE | 2018-12-12 13:52 | RAD REPORT ---
EXAM DESCRIPTION: RAD - Foot Left 3 View - 12/12/2018 1:41 pm CLINICAL HISTORY: Fall, foot pain COMPARISON: None. FINDINGS: No fracture, dislocation or periosteal reaction. No acute or destructive bony process. IP joint degenerative changes are present. Minimal degenerative change at the first MTP joint as well a s degenerative change at the tarsal metatarsal articulations. Patient has a moderate-sized plantar sp ur and minimal Achilles spurring. No air or foreign body in the soft tissues. Arterial calcifications are present. IMPRESSION: Left foot degenerative joint changes are seen. No fracture or acute finding. Moderate size plantar spur.
--- NOTE | 2018-12-12 13:53 | RAD REPORT ---
EXAM DESCRIPTION: RAD - Shoulder Left 2 View - 12/12/2018 1:41 pm CLINICAL HISTORY: Fall, left shoulder pain COMPARISON: None. TECHNIQUE: Internal and external rotation views of the left shoulder were obtained. FINDINGS: There is no fracture or dislocation. Mild AC joint degenerative changes are present withou t separation. Degenerative changes seen in the superolateral humeral head. No acute or suspicious fin dings. IMPRESSION: Negative two-view left shoulder examination for acute fracture or dislocation.
--- NOTE | 2018-12-12 13:54 | RAD REPORT ---
EXAM DESCRIPTION: RAD - Pelvis - 12/12/2018 1:41 pm CLINICAL HISTORY: Fall, pelvic pain COMPARISON: None. TECHNIQUE: AP imaging of the pelvis was obtained. FINDINGS: No fracture of the bony pelvis. No fracture, dislocation or other acute hip joint finding. No significant SI joint findings. Surgical hardware is in place from prior proximal right femur rib fracture repair No soft tissue abnormality. IMPRESSION: Negative pelvis for acute or significant findings.
--- NOTE | 2018-12-12 13:55 | RAD REPORT ---
EXAM DESCRIPTION: RAD - Hip Right 2 View - 12/12/2018 1:41 pm CLINICAL HISTORY: Fall, right hip pain COMPARISON: November 2015 FINDINGS: AP and frog-leg views of the right hip were obtained. There is no fracture or dislocation . No acute or destructive bony process seen. Surgical hardware is in place from prior proximal right femur fracture repair. No fracture of the hardware. No acute bone finding. Fracture is well healed. No air or foreign body in the soft tissues. IMPRESSION: Postsurgical changes to the proximal right femur with no hardware fracture. No acute bone abnormality. No suspicious periarticular soft tissue finding.
--- NOTE | 2018-12-12 14:05 | EDPHYS ---
Physician Documentation [facility] Name: Ila Pérez Age: 53 yrs Sex: Female : 1965 Arrival Date: 12/12/2018 Time: 11:22 Bed 6 Private MD: Fabián Guerra E ED Physician Chuy Cox HPI: 12/12 11:57 This 53 yrs old Female presents to ER via Ambulatory with complaints of Fall rn Injury. 11:57 Details of fall: The patient fell from an upright position. Onset: The symptoms/episode rn began/occurred this morning. Associated injuries: The patient sustained head, right hip, left foot, left shoulder. Severity of symptoms: At their worst the symptoms were mild, in the emergency department the symptoms are unchanged. The patient has experienced similar episodes in the past. The patient has not recently seen a physician. REports chronic pain, fell this morning around 0430, states was walking and thinks tripped on a rug that was used to cover a cord, unsure of events, reports fell backward, hit head, and left foot is what is bothering her the most. Also reports left shoulder and right hip pain. . Historical: - Allergies: 11:33 Gluten Protein; ss - PMHx: 11:33 Anxiety; Arthritis; Chronic pain; Depression; Diabetes - IDDM; Fibromyalgia; ss Esophagitis; Myocardial infarction; Tachycardia; gastroporeisis; heart disease; GERD; sleep disorder; neuropathy; raynaud's; Hypertension; High Cholesterol; TBI; - PSHx: 11:33 ; Gastric Bypass; cataract sx; Carpal Tunnel Repair; Cholecystectomy; ss Tonsillectomy; Knee surgery; rotator cuff; trigger finger release; - Immunization history: Last tetanus immunization: unknown. - Social history:: Smoking status: Patient uses tobacco products, smokes one-half pack cigarettes per day. - Ebola Screening: : Patient denies exposure to infectious person Patient denies travel to an Ebola-affected area in the 21 days before illness onset. - Family history:: not pertinent. - Hospitalizations: : No recent hospitalization is reported. ROS: 11:57 Constitutional: Negative for fever, chills, and weight loss, Eyes: Negative for injury, rn pain, redness, and discharge, Neck: Negative for injury, pain, and swelling, Cardiovascular: Negative for chest pain, palpitations, and edema, Respiratory: Negative for shortness of breath, cough, wheezing, and pleuritic chest pain, Abdomen/GI: Negative for abdominal pain, nausea, vomiting, diarrhea, and constipation, MS/Extremity: + left shoulder and left foot pain, + right hip pain Skin: Negative for injury, rash, and discoloration, Neuro: Negative for weakness, numbness, tingling, and seizure. Exam: 11:57 Constitutional: This is a well developed, well nourished patient who is awake, alert, rn and in no acute distress. Head/Face: Normocephalic, atraumatic. Eyes: Pupils equal round and reactive to light, extra-ocular motions intact. Lids and lashes normal. Conjunctiva and sclera are non-icteric and not injected. Cornea within normal limits. Periorbital areas with no swelling, redness, or edema. Neck: Trachea midline, no thyromegaly or masses palpated, and no cervical lymphadenopathy. Supple, full range of motion without nuchal rigidity, or vertebral point tenderness. No Meningismus. Cardiovascular: Regular rate and rhythm, No pulse deficits. Respiratory: Lungs have equal breath sounds bilaterally, clear to auscultation. No increased work of breathing, no retractions or nasal flaring. Back: No spinal tenderness. No costovertebral tenderness. Full range of motion. MS/ Extremity: Pulses equal, no cyanosis. Neurovascular intact. Full, normal range of motion. Equal circumference. + FROM left shoulder and right hip. + tenderness left foot along lateral margin, no deformity, no open wounds, no ecchymosis Neuro: Awake and alert, GCS 15, oriented to person, place, time, and situation. Cranial nerves II-XII grossly intact. Motor strength 5/5 in all extremities. Sensory grossly intact. Cerebellar exam normal. Normal gait. Vital Signs: 11:27 Pulse 100; Resp 16; Temp 98.4(TE); Pulse Ox 100% on R/A; Weight 90.72 kg; Height 5 ft. ss 4 in. (162.56 cm); Pain 8/10; 11:33 BP 152 / 68; ss 11:44 BP 148 / 79; Pulse 95; Resp 16; Temp 98.4; Pulse Ox 98% ; sv 12:19 BP 117 / 53; Pulse 107; Resp 16; Pulse Ox 99% on R/A; sv 13:00 BP 130 / 75; Pulse 86; Resp 16; Pulse Ox 99% ; sv 13:56 Pulse 90; Resp 15; Pulse Ox 98% on R/A; sv 14:50 BP 128 / 70; Pulse 88; Resp 16; Pulse Ox 99% ; sv 11:27 Body Mass Index 34.33 (90.72 kg, 162.56 cm) ss [place] Coma Score: 11:27 Eye Response: spontaneous(4). Verbal Response: oriented(5). Motor Response: obeys ss commands(6). Total: 15. 11:44 Eye Response: spontaneous(4). Verbal Response: oriented(5). Motor Response: obeys sv commands(6). Total: 15. 12:19 Eye Response: spontaneous(4). Verbal Response: oriented(5). Motor Response: obeys sv commands(6). Total: 15. 14:50 Eye Response: spontaneous(4). Verbal Response: oriented(5). Motor Response: obeys sv commands(6). Total: 15. Trauma Score (Adult): 11:27 Eye Response: spontaneous(1); Verbal Response: oriented(1); Motor Response: obeys ss commands(2); Systolic BP: > 89 mm Hg(4); Respiratory Rate: 10 to 29 per min(4); [place] Score: 15; Trauma Score: 12 11:44 Eye Response: spontaneous(1); Verbal Response: oriented(1); Motor Response: obeys sv commands(2); Systolic BP: > 89 mm Hg(4); Respiratory Rate: 10 to 29 per min(4); [place] Score: 15; Trauma Score: 12 12:19 Eye Response: spontaneous(1); Verbal Response: oriented(1); Motor Response: obeys sv commands(2); Systolic BP: > 89 mm Hg(4); Respiratory Rate: 10 to 29 per min(4); [place] Score: 15; Trauma Score: 12 14:50 Eye Response: spontaneous(1); Verbal Response: oriented(1); Motor Response: obeys sv commands(2); Systolic BP: > 89 mm Hg(4); Respiratory Rate: 10 to 29 per min(4); Edita Score: 15; Trauma Score: 12 MDM: 11:38 Patient medically screened. rn 14:03 Differential diagnosis: closed head injury, contusion, fracture, sprain, strain. Data rn reviewed: vital signs, nurses notes, lab test result(s), EKG, radiologic studies, CT scan, plain films, and as a result, I will discharge patient. Counseling: I had a detailed discussion with the patient and/or guardian regarding: the historical points, exam findings, and any diagnostic results supporting the discharge/admit diagnosis, lab results, radiology results, the need for outpatient follow up, to return to the emergency department if symptoms worsen or persist or if there are any questions or concerns that arise at home. Special discussion: I discussed with the patient/guardian in detail that at this point there is no indication for admission to the hospital. It is understood, however, that if the symptoms persist or worsen the patient needs to return immediately for re-evaluation. 12/12 11:46 Order name: CBC with Diff; Complete Time: 12:41 rn 12/12 11:46 Order name: Basic Metabolic Panel; Complete Time: 13:23 rn 12/12 11:46 Order name: CT Head Brain wo Cont; Complete Time: 12:41 rn 12/12 11:46 Order name: XRAY Shoulder LEFT 2 view; Complete Time: 14:03 rn 12/12 11:46 Order name: XRAY Foot LEFT 3 View; Complete Time: 14:03 rn 12/12 11:46 Order name: XRAY Pelvis; Complete Time: 14:03 rn 12/12 11:46 Order name: EKG; Complete Time: 11:47 rn 12/12 11:46 Order name: EKG - Nurse/Tech; Complete Time: 12:07 rn 12/12 11:46 Order name: XRAY Hip RIGHT 2 view; Complete Time: 14:03 rn 12/12 12:22 Order name: Labs - recollect needed; Complete Time: 13:50 bd Administered Medications: No medications were administered Disposition: 12/12/18 14:04 Discharged to Home. Impression: Superficial injury of head, Other sprain of left foot, Contusion of right hip, Contusion of left shoulder. - Condition is Stable. - Discharge Instructions: Contusion, Foot Sprain, Head Injury, Adult, Shoulder Pain. - Medication Reconciliation Form, Thank You Letter, Antibiotic Education, Prescription Opioid Use form. - Follow up: Private Physician; When: As needed; Reason: Recheck today's complaints, Re-evaluation by your physician. - Problem is new. - Symptoms have improved. Signatures: Dispatcher [employer] EDMS Rose Beltrán Irene, RN RN iw Nieto, Roman, MD MD rn Smirch, MARTÍNEZ Ochoa RN ss Corrections: (The following items were deleted from the chart) 12:07 11:46 IV Saline Lock ordered. martínez sv 14:51 14:04 12/12/2018 14:04 Discharged to Home. Impression: Superficial injury of head; iw Other sprain of left foot; Contusion of right hip; Contusion of left shoulder. Condition is Stable. Forms are Medication Reconciliation Form, Thank You Letter, Antibiotic Education, Prescription Opioid Use. Follow up: Private Physician; When: As needed; Reason: Recheck today's complaints, Re-evaluation by your physician. Problem is new. Symptoms have improved. rn
--- NOTE | 2018-12-12 14:05 | ER ---
Nurse's Notes [facility] Name: Ila Pérez Age: 53 yrs Sex: Female : 1965 Arrival Date: 12/12/2018 Time: 11:22 Bed 6 Private MD: Fabián Guerra E Diagnosis: Superficial injury of head;Other sprain of left foot;Contusion of right hip;Contusion of left shoulder Presentation: 12/12 11:27 Presenting complaint: Patient states: Fall from a standing position this morning. Pt ss remembers waking up on the floor, but is unsure whether or not if she had a syncopal episode that caused the fall or if she hit her head when she fell. C/o R hip hip/ buttocks pain as well as L foot pain. Care prior to arrival: None. Mechanism of Injury: Fall from standing position. Trauma event details: Injury occurred in the [facility], Injury occurred: at home. Injury occurred: December 12, 2018. 11:27 Acuity: DEVONTE 3 ss 11:27 Method Of Arrival: Ambulatory ss 11:31 Transition of care: patient was not received from another setting of care. Onset of ss symptoms was December 12, 2018. Risk Assessment: Do you want to hurt yourself or someone else? Patient reports no desire to harm self or others. Initial Sepsis Screen: Does the patient meet any 2 criteria? HR > 90 bpm. Does the patient have a suspected source of infection? No. Patient's initial sepsis screen is negative. Triage Assessment: 14:50 General: Appears in no apparent distress. Behavior is calm, cooperative. iw Trauma Activation: Not Applicable Physician: ED Physician; Name: ; Notified At: ; Arrived At: Physician: General Surgeon; Name: ; Notified At: ; Arrived At: Physician: Radiology; Name: ; Notified At: ; Arrived At: Physician: Respiratory; Name: ; Notified At: ; Arrived At: Physician: Lab; Name: ; Notified At: ; Arrived At: Historical: - Allergies: 11:33 Gluten Protein; ss - PMHx: :33 Anxiety; Arthritis; Chronic pain; Depression; Diabetes - IDDM; Fibromyalgia; ss Esophagitis; Myocardial infarction; Tachycardia; gastroporeisis; heart disease; GERD; sleep disorder; neuropathy; raynaud's; Hypertension; High Cholesterol; TBI; - PSHx: 11:33 ; Gastric Bypass; cataract sx; Carpal Tunnel Repair; Cholecystectomy; ss Tonsillectomy; Knee surgery; rotator cuff; trigger finger release; - Immunization history: Last tetanus immunization: unknown. - Social history:: Smoking status: Patient uses tobacco products, smokes one-half pack cigarettes per day. - Ebola Screening: : Patient denies exposure to infectious person Patient denies travel to an Ebola-affected area in the 21 days before illness onset. - Family history:: not pertinent. - Hospitalizations: : No recent hospitalization is reported. Screenin:27 Abuse screen: Denies threats or abuse. Denies injuries from another. Tuberculosis ss screening: Never had TB. 11:30 Nutritional screening: No deficits noted. Fall Risk Fall in past 12 months (25 points). iw Primary Survey: 11:27 NO uncontrolled hemorrhage observed. A: The patient is alert. Airway: patent, No ss supplemental oxygen in use on arrival. Oral cavity: clear, Trachea midline. Breathing/Chest: Respiratory pattern: regular, Respiratory effort: spontaneous, unlabored, Chest inspection: symmetrical rise and fall of the chest. Circulation: Skin color: pink, Skin temperature: warm. Disability Alert. 11:44 Exposure/Environment: All clothing and personal items were removed. Forensic evidence sv collection is not deemed to be indicated at this time. Items placed in patient belonging bag. There is no evidence of uncontrolled external bleeding. A warming method has been applied: A warm blanket has been provided to the patient. Reassessment Airway Airway Patent Oxygen No O2 Oral cavity Clear Breathing/Chest Respiratory pattern Regular Respiratory effort Spontaneous Unlabored Chest inspection Symmetrical Circulation Heart tones Present Pulses Palpable Color [place] Temperature Warm Dry Disability Alert. Secondary Survey: 11:44 HEENT: No deficits noted. Gastrointestinal: No deficits noted. : No deficits noted. sv No signs and/or symptoms were reported regarding the genitourinary system. Musculoskeletal: Reports pain in left foot and ankle. Assessment: 12:50 Reassessment: Patient appears in no apparent distress at this time. No changes from sv previously documented assessment. Patient and/or family updated on plan of care and expected duration. Pain level reassessed. Patient is alert, oriented x 3, equal unlabored respirations, skin warm/dry/pink. 13:37 Reassessment: Patient appears in no apparent distress at this time. No changes from sv previously documented assessment. Patient and/or family updated on plan of care and expected duration. Pain level reassessed. Patient is alert, oriented x 3, equal unlabored respirations, skin warm/dry/pink. 14:50 Reassessment: Patient appears in no apparent distress at this time. Patient and/or sv family updated on plan of care and expected duration. Pain level reassessed. Patient is alert, oriented x 3, equal unlabored respirations, skin warm/dry/pink. Patient states feeling better. Patient states symptoms have improved. Vital Signs: 11:27 Pulse 100; Resp 16; Temp 98.4(TE); Pulse Ox 100% on R/A; Weight 90.72 kg; Height 5 ft. ss 4 in. (162.56 cm); Pain 8/10; 11:33 BP 152 / 68; ss 11:44 BP 148 / 79; Pulse 95; Resp 16; Temp 98.4; Pulse Ox 98% ; sv 12:19 BP 117 / 53; Pulse 107; Resp 16; Pulse Ox 99% on R/A; sv 13:00 BP 130 / 75; Pulse 86; Resp 16; Pulse Ox 99% ; sv 13:56 Pulse 90; Resp 15; Pulse Ox 98% on R/A; sv 14:50 BP 128 / 70; Pulse 88; Resp 16; Pulse Ox 99% ; sv 11:27 Body Mass Index 34.33 (90.72 kg, 162.56 cm) ss [place] Coma Score: 11:27 Eye Response: spontaneous(4). Verbal Response: oriented(5). Motor Response: obeys ss commands(6). Total: 15. 11:44 Eye Response: spontaneous(4). Verbal Response: oriented(5). Motor Response: obeys sv commands(6). Total: 15. 12:19 Eye Response: spontaneous(4). Verbal Response: oriented(5). Motor Response: obeys sv commands(6). Total: 15. 14:50 Eye Response: spontaneous(4). Verbal Response: oriented(5). Motor Response: obeys sv commands(6). Total: 15. Trauma Score (Adult): 11:27 Eye Response: spontaneous(1); Verbal Response: oriented(1); Motor Response: obeys ss commands(2); Systolic BP: > 89 mm Hg(4); Respiratory Rate: 10 to 29 per min(4); [place] Score: 15; Trauma Score: 12 11:44 Eye Response: spontaneous(1); Verbal Response: oriented(1); Motor Response: obeys sv commands(2); Systolic BP: > 89 mm Hg(4); Respiratory Rate: 10 to 29 per min(4); Edita Score: 15; Trauma Score: 12 12:19 Eye Response: spontaneous(1); Verbal Response: oriented(1); Motor Response: obeys sv commands(2); Systolic BP: > 89 mm Hg(4); Respiratory Rate: 10 to 29 per min(4); [place] Score: 15; Trauma Score: 12 14:50 Eye Response: spontaneous(1); Verbal Response: oriented(1); Motor Response: obeys sv commands(2); Systolic BP: > 89 mm Hg(4); Respiratory Rate: 10 to 29 per min(4); [place] Score: 15; Trauma Score: 12 ED Course: 11:22 Patient arrived in ED. mr 11:22 Fabián Guerra MD is Private Physician. mr 11:27 Patient has correct armband on for positive identification. Bed in low position. Call ss light in reach. Patient maintains SpO2 saturation greater than 95% on room air. 11:27 Patient maintains SpO2 saturation greater than 95% on room air. ss 11:29 Triage completed. ss 11:30 Thermoregulation: warm blanket given to patient. iw 11:33 Arm band placed on right wrist. ss 11:38 Chuy Cox MD is Attending Physician. rn 11:39 Joie Yañez RN is Primary Nurse. sv 11:44 ED physician to see patient. sv 11:55 Initial lab(s) drawn, by me, sent to lab. Missed attempt(s): 20 gauge in left sv antecubital area. Bleeding controlled, band aid applied, catheter tip intact. 12:09 EKG done, by fill technician. reviewed by Chuy Cox MD. sm3 12:[address] via stretcher. sv 12:18 CT Head Brain wo Cont In Process Unspecified. EDMS 12:19 Patient moved back from CT. sv 13:42 XRAY Shoulder LEFT 2 view In Process Unspecified. EDMS 13:42 XRAY Foot LEFT 3 View In Process Unspecified. EDMS 13:42 XRAY Pelvis In Process Unspecified. EDMS 13:42 XRAY Hip RIGHT 2 view In Process Unspecified. EDMS 14:50 No provider procedures requiring assistance completed. IV discontinued, intact, iw bleeding controlled, No redness/swelling at site. Pressure dressing applied. Administered Medications: No medications were administered Intake: 11:44 PO: 0ml; Total: 0ml. sv 12:19 PO: 0ml; Total: 0ml. sv Output: 11:44 Urine: 0ml; Total: 0ml. sv 12:19 Urine: 0ml; Total: 0ml. sv Outcome: 14:04 Discharge ordered by MD. rn 14:50 Discharged to home ambulatory. iw 14:50 Condition: good 14:50 Discharge instructions given to patient, Instructed on discharge instructions, follow up and referral plans. Demonstrated understanding of instructions, follow-up care. 14:51 Patient left the ED. iw 19:27 Patient's length of stay in the Emergency Department was greater than 2 hours. sv Signatures: Dispatcher [employer] EDJoie Sun RN RN Catalina Griffin Martha [facility] Xin Garcia RN RN Chuy Cox MD MD rn Smirch, Shelby, RN RN ss Montes, Shakira 3 Corrections: (The following items were deleted from the chart) 12:22 12:19 Pulse 107bpm; Resp 16bpm; Pulse Ox 99% RA; sv sv 13:30 13:28 Radiology exam delayed due to PT NOT IN ROOM 1 [facility]
[2018-12-12 15:05] VITALS: TEMP 98.4
[2018-12-12 15:10] VITALS: BP 130/75
[2018-12-12 15:11] VITALS: O2SAT 98
--- NOTE | 2018-12-13 11:41 | EKG ---
Test Date: 2018-12-12 Test Time: 12:03:48 Java Engineer: OTILIO MEASUREMENT RESULTS: Intervals: Rate: 95 [place]: 154 QRSD: 88 QT: 350 QTc: 439 [employer]: P: 74 [place]: 154 QRS: 100 T: 24 INTERPRETIVE STATEMENTS: Normal sinus rhythm Rightward axis Borderline ECG Compared to ECG 06/11/2018 05:15:05 Right-axis deviation now present Myocardial infarct finding no longer present Electronically Signed On 12-12-18 16:09:38 CDT by Cassius Perea
== END 2018-12-12 14:51 | disposition home or self-care (01) ==
LOC: ER 11:19
DX: S93.692A Other sprain of left foot, initial encounter (principal); S00.90XA Unspecified superficial injury of unspecified part of head, initial encounter; S40.012A Contusion of left shoulder, initial encounter; S70.01XA Contusion of right hip, initial encounter; W18.09XA Striking against other object with subsequent fall, initial encounter; Y93.01 Activity, walking, marching and hiking; Y92.9 Unspecified place or not applicable; Z91.018 Allergy to other foods; F17.210 Nicotine dependence, cigarettes, uncomplicated; I10 Essential (primary) hypertension
CPT/HCPCS: 36415; 70450; 72170; 80048; 85025; 93005; 99285

== ENCOUNTER 2018-12-18 18:46 | Emergency (ER) | payer MEDICARE ==
--- OUTSIDE RECORDS SUMMARY | 2018-12-18 18:48 | XMS REPORT | Clinical Summary ---
:1965 Author Organization [facility] Address [address] [place] [address] Care Team Providers Name Role Phone Fabián [...] 05/31/2018 Surgery Gastroenterology Boone Barahona UPPER ENDOSCOPY [facility] 05/31/2018 Hospital Encounter Gastroenterology Boone Barahona [facility] 05/24/2018 Hospital Encounter Pre-Admission Testing Resource, [facility] Preadmit Phone after 12/17/2017 Social History Tobacco Use Types Packs/Day Years [...] procedure are in the results section. after 12/17/2017 Results POC-Glucose meter (05/31/2018 2:40 PM CDT)Only the most recent of2 resultswithin the time period is included. POC-Glucose Meter 211 (H)Comment: TESTED AT 70 - 110 mg/dL [facility] [address] [facility] [id number] Specimen Blood Performing Organization Address City/State/Zipcode Phone Number [facility] [address] [place] [address] [phone] CENTER REPORT OF PROCEDURE - ENDOSCOPY URL (05/31/2018 2:37 PM CDT) Narrative Performed At after 12/17/2017 Insurance Payer Benefit Plan / Group Subscriber ID Type Phone Address [facility] - MEDICARE AARP/MEDICARE COMPLETE xxxxxxxxx [facility] Advance Directives For more information, please contact:[address] [phone] Code Status Date Activated Date Inactivated Comments Full Code 06/25/2017 10:56 AM 06/25/2017 5:59 PM This code status was determined by: Patient
--- NOTE | 2018-12-18 20:27 | RAD REPORT ---
EXAM DESCRIPTION: CT - Head Brain Wo Cont - 12/18/2018 8:20 pm CLINICAL HISTORY: Weakness, transient alteration of awareness COMPARISON: CT head December 12 TECHNIQUE: Axial 5 mm thick images of the head were obtained without IV contrast. All CT scans are performed using dose optimization technique as appropriate and may include automated exposure control or mA/KV adjustment according to patient size. FINDINGS: No intracranial hemorrhage, mass, edema or shift of mid-line structures. No acute cortical based infarction. No cortical edema or sulcal effacement. Atrophy changes are minimal. Minimal chron ic ischemic changes noted. Intracranial findings are similar to comparison. Ventricles are normal. Mastoid air cells and visualized portions of the paranasal sinuses are clear. No acute bony findings. IMPRESSION: Negative non-contrast CT head examination for acute finding. No significant change from December 12 imaging.
--- OUTSIDE RECORDS SUMMARY | 2018-12-18 20:31 | XMS REPORT | Continuity of Care Document ---
:1965 Author Organization Interface Problems Problem Status Onset Classification Date Comments Source Date Reported PAIN IN Active 08/13/20 [facility] ABDOMEN/NAUSEA/TI Medical GHTENESS IN [facility] Center BDDC/GASTROESOPHA Active 07/24/20 [facility] GEAL REFLUX Medical DISEASE Center VOMITING Active 07/11/[address] GASTROPARESIS Active 07/11/[address] CHEST PAIN Active 04/02/[address] Center R/O ACS Active 04/02/[address] HYPERGLYCEMIA Active 03/06/20 [facility] DEHYDRATION [address] [place] [address] GASTROPARESIS Center SOB/CHEST PAIN Active 03/06/[address] NASEAU Active 01/11/[address] N/V Active 11/29/[address] VOMITTING, Active 11/29/19 [facility] DIABETIC, HEART [address] [place] [address] PT Center ACS R/O AND Active 11/17/19 [facility] PERSISTANT N/V [address] [place] [address] NAUSEA, VOMITTING Active 11/17/[address] MRSA<sup>1, Active 10/23/19 Problem 11/19/2012 2Problem [facility] </sup><sup>2</sup 13 added by Medical [facility] Center Expert. MRSA<sup>1, 2, 3, Active 10/23/19 Problem 08/15/2013 4Problem [facility] 4</sup> 13 added by Medical [facility] Center Expert. MRSA<sup>1, Active 10/23/19 Problem 04/05/2013 4Problem [facility] </sup><sup>2, 13 added by Medical </sup><sup>3, [facility] Center </sup><sup>4</sup Expert. > N/V DEHYDRATION Active 10/22/[address] [place] - Myocardial Resolved 10/22/19 Problem 08/15/2013 [facility] infarction [address] [place] [address] [place] - Myocardial Resolved 10/22/19 Problem 04/05/[address] DSU/ REFLUX Active 06/13/[address] MORBID OBESITY Active 01/19/[address] Acid reflux Resolved Problem 04/05/2013 [facility] Anemia Resolved Problem 04/05/2013 [facility] Anxiety Resolved Problem 04/05/2013 [facility] Arthritis Resolved Problem 04/05/2013 [facility] Depression Resolved Problem 04/05/2013 [facility] Diabetes mellitus Resolved Problem 04/05/[address] Edema of lower Resolved Problem 04/05/2013 [facility] Fibromyalgia Resolved Problem 04/05/2013 [facility] Hyperlipidemia Resolved Problem 04/05/2013 [facility] Hypertension Resolved Problem 04/05/2013 [facility] Acid reflux Resolved Problem 08/15/2013 [facility] Anemia Resolved Problem 08/15/2013 [facility] Anxiety Resolved Problem 08/15/2013 [facility] Arthritis Resolved Problem 08/15/2013 [facility] Depression Resolved Problem 08/15/2013 [facility] Diabetes mellitus Resolved Problem 08/15/[address] Edema of lower Resolved Problem 08/15/2013 [facility] Fibromyalgia Resolved Problem 08/15/2013 [facility] Gastric ulcer Resolved Problem 08/15/2013 [facility] Hyperlipidemia Resolved Problem 08/15/2013 [facility] Hypertension Resolved Problem 08/15/2013 [facility] Neuropathy Resolved Problem 08/15/2013 [facility] Gastric ulcer Resolved Problem 04/05/2013 [facility] Neuropathy Resolved Problem 04/05/2013 [facility] CHEST PAIN NOS Active [facility] MORBID OBESITY Active [facility] NAUSEA WITH Active [facility] VOMITING [facility] OTHER GENERAL Active [facility] Medications Medication Details Route Status Patient Ordering Order Source Instructions Provider Date Zofran 4 mg 4 mg=1 tab, PO, Active De La Garza [facility] oral tablet BID, # 10 tab, 0 2012 Medical Refill(s) Center Reglan 10 mg 10 mg=1 tab, PO, Active De La Garza 08/13[facility] oral tablet QID, # 40 tab, 0 2012 Medical Refill(s) Center IDS med 5 mg, 1 mL, Inactive Ruggiero [facility] Rate: 30 ml/hr, 2012 Medical Infuse [...] 10 mg 10 mg, 1 tab, Inactive [facility] oral tablet Route: PO, Drug 2012 Medical form: TAB, Center TID-Before Meals, Dosing Weight 86.364, kg, Start date: 07/14/13 11:30:00, Duration: 30 day, Stop date: 08/13/13 7:30:00(Same as: Reglan) Take 30 min before meals Levemir 15 unit, 0.15 No Longer [facility] mL, Route: Active 2012 Medical SUB-Q, Drug Center form: INJ, BID, Dosing Weight 86.364, kg, Start date: 07/13/13 21:00:00, Duration: 30 day, Stop date: 08/12/13 9:00:00Same as Levemir "single patient use only" pneumococcal 0.5 ml, Route: No Longer SYSTEM [facility] 23-valent IM, Drug Form: Active 2012 Medical vaccine INJ, Start date: [place] 07/13/13 9:00:00, Stop date: 07/13/13 9:00:00 influenza virus 0.5 ml, Route: No Longer SYSTEM 07/13[facility] vaccine, IM, Drug Form: Active 2012 Medical inactivated SUSP, Start Center date: 07/13/13 9:00:00, Stop date: 07/13/13 9:00:00 lisinopril 20 mg, 1 tab, No Longer [facility] Route: PO, Drug Active 2012 Medical form: TAB, Center Daily, Dosing Weight 86.364, kg, Start date: 07/13/13 9:00:00, Duration: 30 day, Stop date: 08/11/13 9:00:00(Same as: Prinivil, Zestril) metoprolol 50 mg, Route: No Longer [facility] tartrate PO, Drug form: Active 2012 Medical TAB, Daily, Center Dosing Weight 86.364, kg, Start date: 07/13/13 9:00:00, Duration: 30 day, Stop date: 08/11/13 9:00:00 Lyrica 150 mg, 2 cap, No Longer [facility] Route: PO, Drug Active 2012 Medical form: CAP, BID, Center Dosing Weight 86.364, kg, Start date: 07/13/13 9:00:00, Duration: 30 day, Stop date: 08/11/13 17:00:00(Same as: Lyrica) potassium 20 mEq, 1 tab, No Longer [facility] chloride Route: PO, Drug Active 2012 Medical form: ERTAB, Center Daily, Dosing Weight 86.364, kg, Start date: 07/13/13 9:00:00, Duration: 30 day, Stop date: 08/11/13 9:00:00(Same as: K-Dur 20) "Do Not Crush" With food and full glass of water Effient 10 mg, 1 tab, No Longer [facility] Route: PO, Drug Active 2012 Medical form: TAB, Center Daily, Dosing Weight 86.364, kg, Start date: 07/13/13 9:00:00, Duration: 30 day, Stop date: 08/11/13 9:00:00Same as Effient For patients 60kg, without history of TIA/Ischemic stroke and without likely bypass surgery Protonix 40 mg, 1 tab, No Longer [facility] Route: PO, Drug Active 2012 Medical form: ECTAB, Center BID-Before Meals, Dosing Weight 86.364, kg, Start date: 07/13/13 9:00:00, Stop date: 08/11/13 16:30:00Tablet should not be chewed or crushed. (Same as: Protonix) meloxicam 7.5 mg, Route: No Longer [facility] PO, Drug form: Active 2012 Medical TAB, BID, Dosing Center Weight 86.364, kg, Start date: 07/13/13 9:00:00, Duration: 30 day, Stop date: 08/11/13 17:00:00 magnesium oxide 400 mg, 1 tab, No Longer [facility] Route: PO, Drug Active 2012 Medical form: TAB, Center Daily, Dosing Weight 86.364, kg, Start date: 07/13/13 9:00:00, Duration: 30 day, Stop date: 08/11/13 9:00:00(Same as: Mag-Ox 400) Magnesium oxide [id number] elemental magnesium Dose=____mg magnesium oxide (___mg elemental magnesium) furosemide 40 40 mg, 1 tab, No Longer [facility] mg oral tablet Route: PO, Drug Active 2012 Medical form: TAB, Center Daily, Dosing Weight 86.364, kg, Start date: 07/13/13 9:00:00, Duration: 30 day, Stop date: 08/11/13 9:00:00(Same as: Lasix) May cause GI upset. Give with food or milk. ferrous sulfate 325 mg, 1 tab, No Longer [facility] Route: PO, Drug Active 2012 Medical form: ECTAB, [place] TID, Dosing Weight 86.364, kg, Start date: 07/13/13 9:00:00, Duration: 30 day, Stop date: 08/11/13 17:00:00Give with food. "Do Not Crush" clonazepam 0.5 mg, 1 tab, No Longer [facility] Route: PO, Drug Active 2012 Medical form: TAB, TID, Center Dosing Weight 86.364, kg, Start date: 07/13/13 9:00:00, Duration: 30 day, Stop date: 08/11/13 17:00:00(Same As: Klonopin) Insulin regular 5 unit, 0.05 mL, No Longer [facility] Route: SUB-Q, Active 2012 Medical Drug [...] Reglan 10 mg, 2 mL, No Longer [facility] Route: IVP, Drug Active 2012 Medical form: INJ, Q6H, Center Dosing Weight 86.364, kg, Start date: 07/13/13 0:00:00, Duration: 30 day, Stop date: 08/11/13 18:00:00(Same as: Reglan) normal saline 1,000 mL, Rate: No Longer [facility] 0.9% IV 1,000 200 ml/hr, Active 2012 Medical mL Infuse over: 5 Center hr, Route: IV, Dosing Weight 86.364 kg, Total Volume: 1,000, Start date: 07/12/13 21:08:00, Duration: 3 doses or times, Stop date: 07/13/13 12:07:00 metoprolol 50 mg, 1 tab, No Longer [facility]olfo [facility] tartrate Route: PO, Drug Active 2012 Medical form: TAB, Q12H, Center Dosing Weight 86.364, kg, Start date: 07/12/13 21:00:00, Duration: 30 day, Stop date: 08/11/13 9:00:00(Same as: Lopressor) Levemir 12 unit, 0.12 No Longer [facility] mL, Route: Active 2012 Medical SUB-Q, Drug [place] form: INJ, BID, Dosing Weight 86.364, kg, Start date: 07/12/13 21:00:00, Duration: 30 day, Stop date: 08/11/13 9:00:00Same as Levemir "single patient use only" Cymbalta 120 mg, 2 cap, No Longer [facility] Route: PO, Drug Active 2012 Medical form: DRC, Center Bedtime, Dosing Weight 86.364, kg, Start date: 07/12/13 21:00:00, Duration: 30 day, Stop date: 08/10/13 21:00:00Non Formulary Drug (Same as: Cymbalta) (Do Not Crush) ProAir HFA 90 2 puff, Route: No Longer [facility] mcg/inh INHALATION, Drug Active 2012 Medical inhalation Form: AERO/A, Center aerosol with Dosing Weight adapter 86.364, kg, QID, PRN Shortness of breath, Start date: 07/12/13 20:09:00, Duration: 30 day, Stop date: 08/11/13 20:08:00Albutero l 90 microgram/inh 8gm HFA Same as: Alessio Arevalotil aspirin 81 mg 81 mg, 1 tab, No Longer [facility] tablet, enteric Route: PO, Drug Active 2012 Medical coated form: ECTAB, [place] Daily, Dosing Weight 86.364, kg, Start date: 07/12/13 20:00:00, Duration: 30 day, Stop date: 08/11/13 9:00:00Do not crush or chew. (Same As: Ecotrin) glucagon 1 mg, Route: IM, No Longer [facility] Drug form: Active 2012 Medical PDR/INJ, PRN, Center Dosing Weight 86.364, kg, PRN Blood Glucose Results, Start date: 07/12/13 18:26:00, Duration: 30 day, Stop date: 08/11/13 18:25:00 Dextrose 50% 12.5 gm, 25 mL, No Longer [facility] Syringe Route: IVP, Drug Active 2012 Medical Form: INJ, Center Dosing Weight 86.364, kg, PRN, PRN Blood Glucose Results, Start date: 07/12/13 18:26:00, Duration: 30 day, Stop date: 08/11/13 18:25:00 insulin aspart 4 unit, 0.04 mL, No Longer [facility] Route: SUB-Q, Active 2012 Medical Drug form: SOLN, [place] TID-Before Meals, Dosing Weight 86.364, kg, PRN Blood Glucose Results, Start date: 07/12/13 18:26:00, Duration: 30 day, Stop date: 08/11/13 18:25:00Roll in palms of hands gently; Do not shake vigorously. (Same as: NovoLog) "single patient use only" Stable for 28 days at room temperature. Expires in days from Da te tramadol 50 mg 50 mg, 1 tab, No Longer [facility] oral tablet Route: PO, Drug Active 2012 Medical form: TAB, Q4H, Center Dosing Weight 86.364, kg, PRN as needed for pain, Start date: 07/12/13 18:24:00, Duration: 30 day, Stop date: 08/11/13 18:23:00Not to exceed 400mg/day. (Same As: Ultram) acetaminophen-h 1 tab, Route: No Longer [facility] ydrocodone 325 PO, Drug Form: Active 2012 Medical mg-5 mg oral TAB, Dosing Center tablet Weight 86.364, kg, Q4H, PRN Pain, Start date: 07/12/13 18:23:00, Duration: 30 day, Stop date: 08/11/13 18:22:00(Same as: Payne 325/5) Do not exceed 4gm/day of acetaminophen. Flexeril 10 mg, 1 tab, No Longer [facility] Route: PO, Drug Active 2012 Medical form: TAB, TID, Center Dosing Weight 86.364, kg, PRN Spasm, Start date: 07/12/13 18:23:00, Duration: 30 day, Stop date: 08/11/13 18:22:00(Same As: Flexeril) benzonatate 100 mg, 1 cap, No Longer [facility] Route: PO, Drug Active 2012 Medical form: CAP, TID, Center Dosing Weight 86.364, kg, PRN as needed for cough, Start date: 07/12/13 18:23:00, Duration: 30 day, Stop date: 08/11/13 18:22:00(Same As: Oleksandr Francis) "Do Not Crush" Saline Flush 5 ml, Route: No Longer [facility] 0.9% IVP, Drug Form: Active 2012 Medical INJ, Dosing Center Weight 86.364, kg, PRN, PRN Line Flush, Start date: 07/12/13 18:22:00, Duration: 30 day, Stop date: 08/11/13 18:21:00(Same as: BD Posiflush) ondansetron 4 mg, 2 mL, No Longer [facility] Route: IVP, Drug Active 2012 Medical form: INJ, Q8H, Center Dosing Weight 86.364, kg, PRN Nausea & Vomiting, Start date: 07/12/13 18:22:00, Duration: 30 day, Stop date: 08/11/13 18:21:00(Same as: Zofran) aspirin 81 mg 81 mg, 1 tab, Active [facility] tablet, enteric PO, Daily, 0 2012 Medical coated tab, Center Substitution Allowed, ECTAB Klor-Con M20 20 mEq, 1 tab, No Longer [facility] oral tablet, PO, Daily, 180 Active 2012 Medical extended tab, Center release Substitution Allowed, ERTAB furosemide 40 40 mg, 1 tab, No Longer [facility] mg oral tablet PO, Daily, 30 Active 2012 Medical tab, Center Substitution Allowed, TAB benzonatate 100 PO, TID, PRN, 1 Active [facility] mg oral capsule to 2 tabs, prn, 2012 Medical Substitution Center Allowed1 to 2 tabs metoprolol 50 mg, 1 tab, No Longer [facility] tartrate 50 mg PO, Daily, 180 Active 2012 Medical oral tablet tab, Center Substitution Allowed, TAB Reglan 10 mg, 2 mL, Inactive [facility] Route: IVP, Drug 2012 Medical form: INJ, ONCE, Center Dosing Weight 86.364, kg, Priority: STAT, Start date: 07/12/13 12:12:00, Stop date: 07/12/13 12:12:00(Same as: Reglan) Zofran 4 mg, Route: Inactive [facility] 07/12[facility] IVP, Drug form: 2012 Medical INJ, ONCE, Center Dosing Weight 86.364, kg, Priority: STAT, Start date: 07/12/13 10:52:00, Stop date: 07/12/13 10:52:00 morphine 4 mg, Route: Inactive [facility] 07/12[facility] Sulfate IVP, Drug form: 2012 Medical INJ, ONCE, Center Dosing Weight 86.364, kg, Priority: STAT, Start date: 07/12/13 10:51:00, Stop date: 07/12/13 10:51:00 Zofran 4 mg, 2 mL, Inactive [facility] 07/12[facility] Route: IVP, Drug 2012 Medical form: INJ, [...] Stop date: 07/12/13 11:05:00, Bolus DoseBolus Dose Payne 5/325 1 tab, Route: Inactive Cl[facility] Simmons [...] ODT 8 mg, Route: PO, Inactive [facility]ara [facility] Drug form: 2012 Medical TABDIS, ONCE, Center Dosing Weight 86.364, kg, Priority: STAT, Start date: 07/12/13 6:56:00, Stop date: 07/12/13 6:56:00 Levemir 10 unit, 0.1 mL, Inactive [facility] 07/12[facility] Route: SUB-Q, 2012 Medical Drug form: INJ, Center ONCE, Dosing Weight 86.364, kg, Start date: 07/12/13 4:20:00, Stop date: 07/12/13 4:20:00Same as Levemir "single patient use only" Omnipaque 100 mL, Route: Inactive [place] 07/12[facility] Fei 350mg/ml IVP, Drug Form: 2012 Medical SOLN, Dosing Center Weight 86.364, kg, ONCALL, STAT, Start date: 07/12/13 4:18:00, Duration: 1 doses or times, Dose=2.2ml/kg, Max [id number] -- "To be infused by Radiology Staff ONLY"Dose=2.2ml/ kg, Max [id number] -- "To be infused by Radiology Staff [...] mg, 1 tab, PO No Longer [facility] Route: PO, Drug Active 2012 Medical form: TAB, Center Daily, Dosing Weight 90, kg, Start date: 04/03/13 9:00:00, Duration: 30 day, Stop date: 05/02/13 9:00:00 Lyrica 150 mg, 2 cap, PO No Longer [facility] Route: PO, Drug Active 2012 Medical form: CAP, BID, Center Dosing Weight 90, kg, Start date: 04/03/13 9:00:00, Duration: 30 day, Stop date: 05/02/13 17:00:00 Protonix 40 mg, 1 tab, PO No Longer [facility] Route: PO, Drug Active 2012 Medical form: ECTAB, Center BID, Dosing Weight 90, kg, Start date: 04/03/13 9:00:00, Duration: 30 day, Stop date: 05/02/13 17:00:00 metoclopramide 10 mg, 1 tab, PO No Longer [facility] 10 mg oral Route: PO, Drug Active 2012 Medical tablet form: TAB, TID, Center Dosing Weight 90, kg, Start date: 04/03/13 9:00:00, Duration: 30 day, Stop date: 05/02/13 17:00:00 meloxicam 7.5 mg, 1 tab, PO No Longer [facility] Route: PO, Drug Active 2012 Medical form: TAB, BID, Center Dosing Weight 90, kg, Priority: Routine, Start date: 04/03/13 9:00:00, Duration: 30 day, Stop date: 05/02/13 17:00:00 lisinopril 20 mg, Route: PO No Longer [facility] PO, Drug form: Active 2012 Medical TAB, Daily, Center Dosing Weight 90, kg, Start date: 04/03/13 9:00:00, Duration: 30 day, Stop date: 05/02/13 9:00:00 Levemir 12 unit, Route: SUB-Q No Longer [facility] SUB-Q, BID, Active 2012 Medical Dosing Weight Center 90, kg, Start date: 04/03/13 9:00:00, Duration: 30 day, Stop date: 05/02/13 17:00:00 ferrous sulfate 325 mg, 1 tab, PO No Longer [facility] Route: PO, Drug Active 2012 Medical form: ECTAB, [place] TID, Dosing Weight 90, kg, Start date: 04/03/13 9:00:00, Duration: 30 day, Stop date: 05/02/13 17:00:00 clonazepam 0.5 mg, 1 tab, PO No Longer [facility] Route: PO, Drug Active 2012 Medical form: TAB, TID, Center Dosing Weight 90, kg, Start date: 04/03/13 9:00:00, Duration: 30 day, Stop date: 05/02/13 17:00:00 NovoLog 6 unit, 0.06 mL, SUB-Q No Longer [facility] Route: SUB-Q, Active 2012 [facility], Dosing Weight 90, kg, Start date: 04/03/13 7:30:00, Duration: 30 day, Stop date: 05/02/13 16:30:00 heparin 5000 5,000 unit, 1 SUB-Q No Longer [facility] units/mL mL, Route: Active 2012 Medical injectable SUB-Q, Drug [place] solution form: INJ, Q8H, Dosing Weight 90, kg, Start date: 04/03/13 0:00:00, Duration: 30 day, Stop date: 05/02/13 16:00:00 Cymbalta 120 mg, 2 cap, PO No Longer [facility] Route: PO, Drug Active 2012 Medical form: DRC, [place] Bedtime, Dosing Weight 90, kg, Start date: 04/02/13 23:30:00, Duration: 30 day, Stop date: 05/02/13 21:00:00 Zocor 40 mg, 1 tab, PO No Longer [facility] Route: PO, Drug Active 2012 Medical form: TAB, Center Bedtime, Dosing Weight 90, kg, Start date: 04/02/13 21:00:00, Duration: 30 day, Stop date: 05/01/13 21:00:00 Cymbalta 60 mg, 1 cap, PO No Longer [facility] Route: PO, Drug Active 2012 Medical form: DRC, Center Bedtime, Dosing Weight 90, kg, Start date: 04/02/13 21:00:00, Duration: 30 day, Stop date: 05/01/13 21:00:00 magnesium oxide 400 mg, 1 tab, PO No Longer [facility] Route: PO, Drug Active 2012 Medical form: TAB, Center Daily, Dosing Weight 90, kg, Priority: NOW, Start date: 04/02/13 20:45:00, Duration: 30 day, Stop date: 05/02/13 9:00:00 Levemir 12 unit, 0.12 SUB-Q No Longer [facility] mL, Route: Active 2012 Medical SUB-Q, Drug Center form: INJ, BID, Dosing Weight 90, kg, Start date: 04/02/13 20:45:00, Duration: 30 day, Stop date: 05/02/13 17:00:00 hydrALAZINE 10 mg, 0.5 mL, IVP No Longer [facility] Route: IVP, Drug Active 2012 Medical form: INJ, Q4H, Center Dosing Weight 90, kg, PRN Hypertension, Start date: 04/02/13 20:37:00, Duration: 30 day, Stop date: 05/02/13 20:36:00 lisinopril 20 mg, 1 tab, PO No Longer [facility] Route: PO, Drug Active 2012 Medical form: TAB, Center Daily, Dosing Weight 90, kg, Start date: 04/02/13 20:30:00, Duration: 30 day, Stop date: 05/02/13 9:00:00 metoprolol 12.5 mg, 1 ea, PO No Longer [facility] tartrate Route: PO, Drug Active 2012 Medical form: TAB, BID, Center Dosing Weight 90, kg, Start date: 04/02/13 20:30:00, Duration: 30 day, Stop date: 05/02/13 17:00:00 insulin aspart 8 unit, 0.08 mL, SUB-Q No Longer [facility] Route: SUB-Q, Active 2012 Medical Drug form: SOLN, Center TID-Before Meals, Dosing Weight 90, kg, PRN Blood Glucose Results, Start date: 04/02/13 20:30:00, Duration: 30 day, Stop date: 05/02/13 20:29:00 glucagon 1 mg, Route: IM, IM No Longer [facility] Drug form: Active 2012 Medical PDR/INJ, PRN, Center Dosing Weight 90, kg, PRN Blood Glucose Results, Start date: 04/02/13 20:30:00, Duration: 30 day, Stop date: 05/02/13 20:29:00 Dextrose 50% 25 gm, 50 mL, IVP No Longer [facility] Syringe Route: IVP, Drug Active 2012 Medical Form: INJ, Center Dosing Weight 90, kg, PRN, PRN Blood Glucose Results, Start date: 04/02/13 20:30:00, Duration: 30 day, Stop date: 05/02/13 20:29:00 Insulin regular 8 unit, Route: SUB-Q No Longer [facility] SUB-Q, Active 2012 Medical TID-Before Center Meals, Dosing Weight 90, kg, PRN Blood Glucose Results, Start date: 04/02/13 20:29:00, Duration: 30 day, Stop date: 05/02/13 20:28:00 glucagon 1 mg, Route: IM, IM No Longer [facility] PRN, Dosing Active 2012 Medical Weight 90, kg, Center PRN Blood Glucose Results, Start date: 04/02/13 20:29:00, Duration: 30 day, Stop date: 05/02/13 20:28:00 Dextrose 50% 50 mL, Route: IVP No Longer [facility] 04/03[facility] Syringe IVP, Dosing Active 2012 Medical Weight 90, kg, Center PRN, PRN Blood Glucose Results, Start date: 04/02/13 20:29:00, Duration: 30 day, Stop date: 05/02/13 20:28:00 Zofran 4 mg, 2 mL, IV No Longer [facility] Route: IV, Drug Active 2012 Medical form: INJ, Q8H, Center Dosing Weight 90, kg, PRN Nausea, Start date: 04/02/13 20:29:00, Duration: 30 day, Stop date: 05/02/13 20:28:00 Maalox Advanced 30 mL, Route: PO No Longer [facility] Regular PO, Drug Form: Active 2012 Medical Strength SUSP SUSP, Dosing Center Weight 90, kg, QID, PRN Indigestion, Start date: 04/02/13 20:28:00, Duration: 30 day, Stop date: 05/02/13 20:27:00 Flexeril 10 mg, 1 tab, PO No Longer [facility] Route: PO, Drug Active 2012 Medical form: TAB, TID, Center Dosing Weight 90, kg, PRN Spasm, Start date: 04/02/13 20:22:00, Duration: 30 day, Stop date: 05/02/13 20:21:00 acetaminophen-h 1 tab, Route: PO No Longer [facility] ydrocodone 325 PO, Drug Form: Active 2012 Medical mg-5 mg oral TAB, Dosing Center tablet Weight 90, kg, Q4H, PRN Pain, Start date: 04/02/13 20:22:00, Duration: 30 day, Stop date: 05/02/13 20:21:00 Phenergan 12.5 mg, 0.5 mL, IVPB No Longer [facility] Route: IVPB, Active 2012 Medical Drug form: INJ, Center ONCE, Dosing Weight 90, kg, Start date: 04/02/13 20:11:00, Stop date: 04/02/13 20:11:00 morphine 4 mg, 1 mL, IVP No Longer Mitch [facility] Sulfate Route: IVP, Drug Active 2012 Medical form: INJ, ONCE, Center Dosing Weight 90, kg, Start date: 04/02/13 20:10:00, Stop date: 04/02/13 20:10:00 Phenergan 12.5 mg, 0.5 mL, IVPB No Longer Zhang [facility] Route: IVPB, Active 2012 Medical Drug form: INJ, Center ONCE, Dosing Weight 90, kg, Priority: STAT, Start date: 04/02/13 17:11:00, Stop date: 04/02/13 17:11:00 Zofran 4 mg, 2 mL, IVP No Longer Zhang [facility] Route: IVP, Drug Active 2012 Medical form: INJ, ONCE, Center Dosing Weight 90, kg, Priority: STAT, Start date: 04/02/13 16:52:00, Stop date: 04/02/13 16:52:00 nitroglycerin 0.4 mg, 1 tab, SL No Longer [facility] Route: SL, Drug Active 2012 Medical form: TAB, Center Q5Min, Dosing Weight 90, kg, PRN Chest Pain, Priority: STAT, Start date: 04/02/13 16:31:00, Duration: 3 doses or times, Stop date: Limited # of times aspirin 325 mg, 1 tab, PO No Longer [facility] Route: PO, Drug Active 2012 Medical form: ECTAB, Center ONCE, Dosing Weight 90, kg, Priority: STAT, Start date: 04/02/13 16:31:00, Stop date: 04/02/13 16:31:00 morphine 4 mg, 1 mL, IVP No Longer [facility] Sulfate Route: IVP, Drug Active 2012 Medical form: INJ, ONCE, Center Dosing Weight 90, kg, Start date: 04/02/13 16:30:00, Stop date: 04/02/13 16:30:00 erythromycin 1 cap, PO, Q12H, PO Active [facility] [place] 250 mg oral 14 cap, 2012 Medical enteric coated Substitution Center tablet Allowed, ECTAB GI cocktail 30 ml, Route: PO No Longer [facility] PO, Drug Form: Active 2012 Medical [...] gm, 50 mL, IVPB No Longer [facility] sulfate Route: IVPB, Active 2012 Medical Drug form: INJ, Center Q2H, Dosing Weight 90, kg, Total Dose=4 gm, Start date: 03/08/13 12:00:00, Duration: 2 doses or times, Stop date: 03/08/13 14:00:00, For Mg=1.5 - 1.7 mg/dLFor Mg=1.5 - 1.7 mg/dL insulin aspart 5 unit, 0.05 mL, SUB-Q No Longer [facility] Route: SUB-Q, Active 2012 Medical Drug form: [facility] ONCE, Dosing Weight 90, kg, Start date: 03/08/13 3:17:00, Stop date: 03/08/13 3:17:00 Zocor 40 mg, 1 tab, PO No Longer [facility] Route: PO, Drug Active 2012 Medical form: TAB, Center Bedtime, Dosing Weight 90, kg, Start date: 03/07/13 21:00:00, Duration: 30 day, Stop date: 04/05/13 21:00:00 Cymbalta 120 mg, 2 cap, PO No Longer [facility] Route: PO, Drug 2012 Medical form: [...] unit, 0.1 mL, SUB-Q No Longer [facility] Route: SUB-Q, Active 2012 Medical Drug form: SOLN, Center ONCE, Dosing Weight 90, kg, Start date: 03/07/13 19:16:00, Stop date: 03/07/13 19:16:00 Lyrica 150 mg, 2 cap, PO No Longer [facility] Route: PO, Drug Active 2012 Medical form: CAP, BID, Center Dosing Weight 90, kg, Start date: 03/07/13 17:00:00, Duration: 30 day, Stop date: 04/06/13 9:00:00 Protonix 40 mg, 1 tab, PO No Longer [facility] Route: PO, Drug Active 2012 Medical form: ECTAB, Center BID, Dosing Weight 90, kg, Start date: 03/07/13 17:00:00, Duration: 30 day, Stop date: 04/06/13 9:00:00 meloxicam 7.5 mg, 1 tab, PO No Longer [facility] Route: PO, Drug Active 2012 Medical form: TAB, Center BID-Meals, Dosing Weight 90, kg, Start date: 03/07/13 17:00:00, Duration: 30 day, Stop date: 04/06/13 8:00:00 Flexeril 10 mg, 1 tab, PO No Longer [facility] Route: PO, Drug Active 2012 Medical form: TAB, BID, Center Dosing Weight 90, kg, Start date: 03/07/13 17:00:00, Duration: 30 day, Stop date: 04/06/13 9:00:00 NovoLog FlexPen 6 unit, 0.06 mL, SUB-Q No Longer [facility] Route: SUB-Q, Active 2012 Medical Drug form: SOLN, Center TID-Before Meals, Start date: 03/07/13 16:30:00, Duration: 30 day, Stop date: 04/06/13 11:30:00 Humalog 6 unit, Route: SUB-Q No Longer [facility] SUB-Q, Active 2012 Medical TID-Before Center Meals, Dosing Weight 90, kg, Start date: 03/07/13 16:30:00, Duration: 30 day, Stop date: 04/06/13 11:30:00 heparin 5,000 unit, 1 SUB-Q No Longer [facility] mL, Route: Active 2012 Medical SUB-Q, Drug Center form: INJ, Q8H, Dosing Weight 90, kg, Start date: 03/07/13 16:00:00, Duration: 30 day, Stop date: 04/06/13 8:00:00 Effient 10 mg, 1 tab, PO No Longer [facility] Route: PO, Drug Active 2012 Medical form: TAB, Center Daily, Dosing Weight 90, kg, Start date: 03/07/13 13:30:00, Duration: 30 day, Stop date: 04/06/13 9:00:00 magnesium oxide 400 mg, 1 tab, PO No Longer [facility] Route: PO, Drug Active 2012 Medical form: TAB, Center Daily, Dosing Weight 90, kg, Start date: 03/07/13 13:30:00, Duration: 30 day, Stop date: 04/06/13 9:00:00 lisinopril 20 mg, 1 tab, PO No Longer [facility] Route: PO, Drug Active 2012 Medical form: TAB, Center Daily, Dosing Weight 90, kg, Start date: 03/07/13 13:30:00, Duration: 30 day, Stop date: 04/06/13 9:00:00 Reglan 5 mg, 1 tab, PO No Longer [facility] Route: PO, Drug Active 2012 Medical form: TAB, TID, Center Dosing Weight 90, kg, Start date: 03/07/13 13:00:00, Duration: 30 day, Stop date: 04/06/13 9:00:00 ferrous sulfate 325 mg, 1 tab, PO No Longer [facility] Route: PO, Drug Active 2012 Medical form: ECTAB, Center TID, Dosing Weight 90, kg, Start date: 03/07/13 13:00:00, Duration: 30 day, Stop date: 04/06/13 9:00:00 clonazepam 0.5 mg, 1 tab, PO No Longer [facility] Route: PO, Drug Active 2012 Medical form: TAB, TID, Center Dosing Weight 90, kg, Start date: 03/07/13 13:00:00, Duration: 30 day, Stop date: 04/06/13 9:00:00 NovoLog 6 unit, SUB-Q, SUB-Q No Longer [place] TID-Before Active 2012 Medical Meals, Center Substitution Allowed Levemir 12 unit, SUB-Q, SUB-Q Active [place] BID, 2012 Medical Substitution Center Allowed NS 1,000 mL 1,000 mL, Rate: IV No Longer [facility] 125 ml/hr, Active 2012 Medical Infuse over: 8 Center hr, Route: IV, Dosing Weight 90 kg, Total Volume: 1,000, Start date: 03/07/13 12:19:00, Duration: 30 day, Stop date: 04/06/13 12:18:00 insulin aspart 2 unit, 0.02 mL, SUB-Q No Longer [facility] [place] Route: SUB-Q, Active 2012 Medical Drug form: SOLN, Center TID-Before Meals, Dosing Weight 90, kg, PRN Blood Glucose Results, Start date: 03/07/13 11:55:00, Duration: 30 day, Stop date: 04/06/13 11:54:00 glucagon 1 mg, Route: IM, IM No Longer [facility] [place] Drug form: Active 2012 Medical PDR/INJ, PRN, Center Dosing Weight 90, kg, PRN Blood Glucose Results, Start date: 03/07/13 11:55:00, Duration: 30 day, Stop date: 04/06/13 11:54:00 Dextrose 50% 12.5 gm, 25 mL, IVP No Longer [facility] [place] Syringe Route: IVP, Drug Active 2012 Medical Form: INJ, Center Dosing Weight 90, kg, PRN, PRN Blood Glucose Results, Start date: 03/07/13 11:55:00, Duration: 30 day, Stop date: 04/06/13 11:54:00 Phenergan 12.5 mg, 0.5 mL, IVPB No Longer [facility] Route: IVPB, Active 2012 Medical Drug form: INJ, Center Q4H, Dosing Weight 90, kg, PRN Nausea & Vomiting, Start date: 03/07/13 11:53:00, Duration: 30 day, Stop date: 04/06/13 11:52:00 albuterol 2.49 mg, 3 mL, NEB No Longer [facility] 0.083% Route: NEB, Drug Active 2012 Medical inhalation form: SOLN, Center solution RQ4H, Dosing Weight 90, kg, PRN as needed for wheezing, Start date: 03/07/13 11:53:00, Duration: 30 day, Stop date: 04/06/13 11:52:00 Zofran 4 mg, 2 mL, IVP No Longer [facility] Route: IVP, Drug Active 2012 Medical form: INJ, Q4H, Center Dosing Weight 90, kg, PRN Nausea, Start date: 03/07/13 11:53:00, Duration: 30 day, Stop date: 04/06/13 11:52:00 acetaminophen-h 1 tab, Route: PO No Longer [facility] ydrocodone 325 PO, Drug Form: Active 2012 Medical mg-10 mg oral TAB, Dosing Center tablet Weight 90, kg, Q4H, PRN Pain Score 4-6, Start date: 03/07/13 11:51:00, Duration: 30 day, Stop date: 04/06/13 11:50:00 acetaminophen-h 1 tab, Route: PO No Longer [facility] ydrocodone 325 PO, Drug Form: Active 2012 Medical mg-5 mg oral TAB, Dosing Center tablet Weight 90, kg, Q4H, PRN Pain Score 1-3, Start date: 03/07/13 11:51:00, Duration: 30 day, Stop date: 04/06/13 11:50:00 acetaminophen 650 mg, 2 tab, PO No Longer [facility] Route: PO, Drug Active 2012 Medical form: TAB, Q4H, Center Dosing Weight 90, kg, PRN Pain 1-3/Temp > 100.4 F, Start date: 03/07/13 11:51:00, Duration: 30 day, Stop date: 04/06/13 11:50:00 morphine 2 mg, 1 mL, IVP No Longer [facility] Sulfate Route: IVP, Drug Active 2012 Medical form: INJ, Q4H, Center Dosing Weight 90, kg, PRN Pain Score 7-10, Start date: 03/07/13 11:51:00, Duration: 30 day, Stop date: 04/06/13 11:50:00 docusate 100 mg, 1 cap, PO No Longer [facility] Route: PO, Drug Active 2012 Medical form: CAP, BID, Center Dosing Weight 90, kg, PRN Constipation, Start date: 03/07/13 11:51:00, Duration: 30 day, Stop date: 04/06/13 11:50:00 Levemir 12 unit, 0.12 SUB-Q No Longer [facility] mL, Route: Active 2012 Medical SUB-Q, Drug Center form: INJ, ONCE, Dosing Weight 90, kg, Start date: 03/07/13 6:10:00, Stop date: 03/07/13 6:10:00 lidocaine-epi 1 ml, Route: SUB-Q No Longer [facility] [id number] SUB-Q, Drug Active 2012 Medical Form: SOLN, Center Dosing Weight 90, kg, ONCE, STAT, Start date: 03/07/13 5:18:00, Stop date: 03/07/13 5:18:00 Insulin regular 99 mL, Rate: IVPB No Longer [facility] 100 unit + Start Insulin Active [...] gm, 25 mL, IVP No Longer [facility] Syringe Route: IVP, Drug Active 2012 Medical Form: INJ, Center Dosing Weight 90, kg, PRN, PRN Blood Glucose Results, Start date: 03/07/13 5:13:00, Duration: 30 day, Stop date: 04/06/13 5:12:00 NS (Bolus) IV 1,000 mL, Rate: IV No Longer [facility] 1,000 mL 1,000 ml/hr, Active 2012 Medical Infuse over: 1 Center hr, Route: IV, Dosing Weight 90 kg, Total Volume: 1,000, Priority: STAT, Start date: 03/07/13 2:36:00, Duration: 1 doses or times, Stop date: 03/07/13 3:35:00, Bolus DoseBolus Dose magnesium 2 gm, 50 mL, IVPB No Longer [facility] [place] sulfate Route: IVPB, Active 2012 Medical Drug form: INJ, Center ONCE, Dosing Weight 90, kg, Start date: 03/07/13 2:35:00, Stop date: 03/07/13 2:35:00 Insulin regular 10 unit, 0.1 mL, SUB-Q No Longer [facility] Route: SUB-Q, 2012 Medical Drug form: SOLN, Center ONCE, Dosing Weight 90, kg, Priority: STAT, Start date: 03/07/13 2:16:00, Stop date: 03/07/13 2:16:00 Reglan 10 mg, 2 mL, IVP No Longer [facility] Route: IVP, Drug Active 2012 Medical form: INJ, ONCE, Center Dosing Weight 90, kg, Priority: STAT, Start date: 03/07/13 2:16:00, Stop date: 03/07/13 2:16:00 NS 1,000 mL 1,000 mL, Rate: IV No Longer [facility] [place] 150 ml/hr, 2012 Medical Infuse over: 6.7 Center hr, Route: IV, Dosing Weight 90 kg, Total Volume: 1,000, Start date: 03/07/13 2:15:00, Duration: 30 day, Stop date: 04/06/13 2:14:00 droperidol 1.25 mg, Route: IVP No Longer [facility] IVP, ONCE, 2012 Medical Dosing Weight Center 90, kg, PRN Nausea & Vomiting, Start date: 03/07/13 0:48:00 D5W 1/2NS 1,000 1,000 mL, Rate: IV No Longer [facility] [place] mL 125 ml/hr, Active 2012 Medical Infuse over: 8 Center hr, Route: IV, Dosing Weight 90 kg, Total Volume: 1,000, Start date: 03/07/13 0:43:00, Duration: 30 day, Stop date: 04/06/13 0:42:00 Insulin regular 4 unit, 0.04 mL, SUB-Q No Longer [facility] Route: SUB-Q, Active 2012 Medical Drug form: SOLN, Center Sliding Scale, Dosing Weight 90, kg, PRN Blood Glucose Results, Start date: 03/07/13 0:01:00, Duration: 30 day, Stop date: 04/06/13 0:00:00 glucagon 1 mg, Route: IM, IM No Longer [facility] Drug form: Active 2012 Medical PDR/INJ, PRN, Center Dosing Weight 90, kg, PRN Blood Glucose Results, Start date: 03/07/13 0:01:00, Duration: 30 day, Stop date: 04/06/13 0:00:00 Dextrose 50% 25 gm, 50 mL, IVP No Longer [facility] Syringe Route: IVP, Drug Active 2012 Medical Form: INJ, Center Dosing Weight 90, kg, PRN, PRN Blood Glucose Results, Start date: 03/07/13 0:01:00, Duration: 30 day, Stop date: 04/06/13 0:00:00 NS 1,000 mL 1,000 mL, Rate: IV No Longer [facility] 125 ml/hr, Active 2012 Medical Infuse over: 8 Center hr, Route: IV, Dosing Weight 90 kg, Total Volume: 1,000, Start date: 03/06/13 23:21:00, Duration: 30 day, Stop date: 04/05/13 23:20:00 NS (Bolus) IV 1,000 mL, Rate: IV No Longer [facility] 1,000 mL 1,000 ml/hr, Active 2012 Medical Infuse over: 1 Center hr, Route: IV, Dosing Weight 90 kg, Total Volume: 1,000, Priority: STAT, Start date: 03/06/13 23:21:00, Duration: 1 doses or times, Stop date: 03/07/13 0:20:00, Bolus DoseBolus Dose [place] 5/325 1 tab, PO, Q6H, PO No Longer [place] oral tablet PRN, 30 tab, Active 2012 Medical Substitution Center Allowed, Maintenance ferrous sulfate 325 mg, 1 tab, PO Active [facility] 325 mg oral PO, TID, 30 tab, 2012 Medical enteric coated Substitution Center tablet Allowed, ECTAB acetaminophen-h 1 tab, PO, Q4H, PO Active [facility] ydrocodone 500 PRN, for pain, 2012 Medical mg-7.5 mg oral Substitution Center tablet Allowed, Maintenance, TAB meloxicam 7.5 7.5 mg, 1 tab, PO Active [place] 03/07[facility] mg oral tablet PO, BID, WITH 2012 Medical FOOD, 30 tab, [place] Substitution Allowed, TABWITH FOOD Zocor 40 mg 40 mg, 1 tab, PO Active [place] [facility] oral tablet PO, Bedtime, 30 2012 Medical tab, Center Substitution Allowed, Maintenance ProAir HFA 90 Substitution Active [facility] mcg/inh Allowed, 2012 Medical inhalation Maintenance Center aerosol with adapter Flexeril 10 mg 10 mg, 1 tab, PO Active [place] [facility] oral tablet PO, TID, PRN, 30 2012 Medical tab, for spasm, Center Substitution Allowed, TAB Protonix 40 mg 40 mg, 1 tab, PO Active [place] [facility] oral enteric PO, BID, 30 tab, 2012 Medical coated tablet Substitution Center Allowed, ECTAB Lyrica 150 mg 150 mg, 1 cap, PO Active [place] [facility] oral capsule PO, BID, 90 cap, 2012 [facility] Substitution [place] Allowed, CAP Flagyl 500 mg 500 mg, 1 tab, PO No Longer [facility] oral tablet PO, Q6H, 30 tab, Active 2012 [facility] Substitution [place] Allowed metoclopramide 10 mg, 1 tab, PO Active [place] [facility] 10 mg oral PO, TID, 56 tab, 2012 Medical tablet Substitution Center Allowed, TAB NS (Bolus) IV 1,000 mL, Rate: IV No Longer [facility] 1,000 mL 1,000 ml/hr, Active 2012 Medical Infuse over: 1 Center hr, Route: IV, Dosing Weight 90 kg, Total Volume: 1,000, Priority: STAT, Start date: 03/06/13 21:27:00, Duration: 1 doses or times, Stop date: 03/06/13 22:26:00, Bolus DoseBolus Dose morphine 4 mg, 1 mL, IVP No Longer [facility] Sulfate Route: IVP, Drug Active 2012 Medical form: INJ, ONCE, Center Dosing Weight 90, kg, Start date: 03/06/13 21:27:00, Stop date: 03/06/13 21:27:00 Phenergan 12.5 mg, 0.5 mL, IVPB No Longer [facility] Route: IVPB, Active 2012 Medical Drug form: INJ, Center ONCE, Dosing Weight 90, kg, Priority: STAT, Start date: 03/06/13 21:26:00, Stop date: 03/06/13 21:26:00 ergocalciferol 50,000 IntlUnit, PO No Longer [facility] 1 cap, Route: Active 2012 Medical PO, Drug form: Center CAP, qWeek, Dosing Weight 100, kg, Start date: 12/07/12 9:00:00, Duration: 30 day, Stop date: 01/04/13 9:00:00 erythromycin 250 mg, 1 tab, PO Active [facility] stearate 250 mg PO, Q6H, 56 tab, 2012 Medical oral tablet Substitution Center Allowed, TAB Protonix 40 mg 40 mg, 1 tab, PO Active [facility] oral enteric PO, Daily, 30 2012 Medical coated tablet tab, Center Substitution Allowed, ECTAB pravastatin 80 80 mg, 1 tab, PO Active [facility] mg oral tablet PO, Daily, 30 2012 Medical tab, Center Substitution Allowed, TAB insulin detemir 14 unit, 0.14 SUB-Q Active [facility] 100 units/mL mL, SUB-Q, 2012 Medical subcutaneous Bedtime, 100 mL, [place] solution Substitution Allowed, INJ insulin detemir 16 unit, 0.16 SUB-Q Active [facility] 100 units/mL mL, SUB-Q, 2012 Medical subcutaneous Daily, 100 mL, [place] solution Substitution Allowed, INJ Protonix 40 mg, Route: IVP No Longer [facility] IVP, Drug form: Active 2012 Medical INJ, Daily, Center Dosing Weight 100, kg, Priority: NOW, Start date: 12/06/12 16:52:00, Duration: 30 day, Stop date: 01/05/13 9:00:00 insulin detemir 16 unit, 0.16 SUB-Q No Longer [facility] mL, Route: Active 2012 Medical SUB-Q, Drug Center form: INJ, Daily, Dosing Weight 100, kg, Start date: 12/06/12 9:00:00, Stop date: 01/04/13 9:00:00 [place] 7.5/325 1 tab, Route: PO No Longer [facility] oral tablet PO, Drug Form: Active 2012 Medical TAB, Dosing Center Weight 100, kg, ONCE, Start date: 12/06/12 0:19:00, Stop date: 12/06/12 0:19:00 Pravachol 80 mg, 4 tab, PO No Longer [facility] Route: PO, Drug Active 2012 Medical form: TAB, Center Bedtime, Start date: 12/05/12 21:00:00, Duration: 30 day, Stop date: 01/03/13 21:00:00 insulin detemir 14 unit, 0.14 SUB-Q No Longer [facility] mL, Route: Active 2012 Medical SUB-Q, Drug Center form: INJ, Bedtime, Dosing Weight 100, kg, Start date: 12/05/12 21:00:00, Stop date: 01/03/13 21:00:00 morphine 4 mg, 1 mL, IVP No Longer [facility] Sulfate Route: IVP, Drug Active 2012 Medical form: INJ, ONCE, Center Dosing Weight 100, kg, Start date: 12/05/12 16:51:00, Stop date: 12/05/12 16:51:00 erythromycin + 250 mg, Route: IVPB No Longer [facility] Sodium Chloride IVPB, Q8H, Active 2012 Medical 0.9% IV 100 mL Dosing Weight Center 100, kg, Start date: 12/05/12 16:00:00, Duration: 30 day, Stop date: 01/04/13 8:00:00 potassium 20 mEq, 100 mL, IVPB No Longer [facility] chloride Route: IVPB, Active 2012 Medical [...] 12/04/12 8:20:00 Phenergan 25 mg, 1 supp, [place] No Longer [facility] Route: [place], Drug Active 2012 Medical form: SUPP, Q4H, Center Dosing Weight 100, kg, PRN Nausea & Vomiting, Start date: 12/04/12 7:58:00, Duration: 30 day, Stop date: 01/03/13 7:57:00 Dextrose 50% 25 gm, 50 mL, IVP No Longer [facility] Syringe Route: IVP, Drug Active 2012 Medical Form: INJ, Center Dosing Weight 100, kg, PRN, PRN Blood Glucose Results, Start date: 12/04/12 7:48:00, Duration: 30 day, Stop date: 01/03/13 7:47:00 glucagon 1 mg, Route: IM, IM No Longer [facility] [place] Drug form: Active 2012 Medical PDR/INJ, PRN, Center Dosing Weight 100, kg, PRN Blood Glucose Results, Start date: 12/04/12 7:48:00, Duration: 30 day, Stop date: 01/03/13 7:47:00 insulin aspart 4 unit, 0.04 mL, SUB-Q No Longer [facility] [place] Route: SUB-Q, Active 2012 Medical Drug form: SOLN, Center Bedtime, Dosing Weight 100, kg, PRN Blood Glucose Results, Start date: 12/04/12 7:48:00, Duration: 30 day, Stop date: 01/03/13 7:47:00 Protonix 40 mg, Route: IV No Longer [facility] [place] IV, Drug form: Active 2012 Medical INJ, ONCE, Center Dosing Weight 100, kg, Start date: 12/04/12 3:12:00, Stop date: 12/04/12 3:12:00 potassium 20 mEq, 100 mL, IVPB No Longer [facility] chloride Route: IVPB, Active 2012 Medical Q2H, Start date: [place] 12/03/12 8:00:00, Stop date: 12/03/12 11:00:00 potassium 40 mEq, Route: IV No Longer [facility] chloride IV, ONCE, Dosing Active 2012 Medical Weight 100, kg, Center Start date: 12/03/12 7:02:00, Stop date: 12/03/12 7:02:00 NS 1,000 mL 1,000 mL, Rate: IV No Longer [facility] 125 ml/hr, Active 2012 Medical Infuse over: 8 Center hr, Route: IV, kg, Total Volume: 1,000, Start date: 12/02/12 16:54:00, Duration: 30 day, Stop date: 01/01/13 16:53:00 NS (Bolus) IV 1,000 mL, Rate: IV No Longer [facility] 1,000 mL 1,000 ml/hr, Active 2012 Medical Infuse over: 1 Center hr, Route: IV, kg, Total Volume: 1,000, Priority: STAT, Start date: 12/02/12 13:12:00, Duration: 1 doses or times, Stop date: 12/02/12 14:11:00, Bolus DoseBolus Dose NS (Bolus) IV 1,000 mL, Rate: IV No Longer [facility] 1,000 mL 1,000 ml/hr, Active 2012 Medical Infuse over: 1 Center hr, Route: IV, kg, Total Volume: 1,000, Priority: STAT, Start date: 12/02/12 12:10:00, Duration: 1 doses or times, Stop date: 12/02/12 13:09:00, Bolus DoseBolus Dose insulin detemir 20 unit, 0.2 mL, SUB-Q No Longer [facility] Route: SUB-Q, Active 2012 Medical Drug form: INJ, Center BID, Dosing Weight 100, kg, Start date: 12/02/12 9:00:00, Duration: 30 day, Stop date: 12/31/12 21:00:00 calcium 1,000 mg, 10 mL, IVPB No Longer [facility] chloride + Route: IVPB, Active 2012 Medical Sodium Chloride ONCE, Start Center 0.9% IV 100 mL date: 12/02/12 5:08:00, Stop date: 12/02/12 5:08:00 ceftriaxone 1 gm, Route: IVPB No Longer [facility] IVPB, Drug form: Active 2012 Medical PDR/INJ, Center [id number], Dosing Weight 100, kg, Start date: 12/02/12 5:00:00, Duration: 30 day, Stop date: 12/31/12 5:00:00 calcium 1,000 mg, Route: IVPB No Longer [facility] gluconate IVPB, Drug form: Active 2012 Medical INJ, ONCE, Center Dosing Weight 100, kg, Start date: 12/02/12 5:00:00, Stop date: 12/02/12 5:00:00 Dextrose 50% 25 mL, Route: IVP No Longer [facility] Syringe IVP, Dosing Active 2012 Medical Weight 100, kg, Center PRN, PRN Blood Glucose Results, Start date: 12/02/12 4:51:00, Duration: 30 day, Stop date: 01/01/13 4:50:00 Insulin regular 100 mL, Rate: IVPB No Longer [facility] 100 unit + Start Insulin Active [...] 4 mg, Route: IVP No Longer [facility] IVP, Drug form: Active 2012 Medical INJ, ONCE, Center Dosing Weight 100, kg, Priority: STAT, Start date: 12/02/12 4:47:00, Stop date: 12/02/12 4:47:00 normal saline 1,000 mL, Rate: IV No Longer [facility] [place] 0.9% IV 1,000 1,000 ml/hr, Active 2012 Medical mL Infuse over: 1 Center hr, Route: IV, kg, Total Volume: 1,000, Start date: 12/02/12 3:19:00, Duration: 1 doses or times, Stop date: 12/02/12 4:18:00 Insulin regular 6 unit, 0.06 mL, IV No Longer [facility] Route: IV, Drug Active 2012 Medical form: SOLN, Center ONCE, Dosing Weight 100, kg, Priority: STAT, Start date: 12/02/12 3:19:00, Stop date: 12/02/12 3:19:00 insulin aspart 3 unit, 0.03 mL, SUB-Q No Longer [facility] Route: SUB-Q, Active 2012 Medical Drug form: SOLN, Center Bedtime, Dosing Weight 100, kg, PRN Blood Glucose Results, Start date: 12/01/12 13:23:00, Duration: 30 day, Stop date: 12/31/12 13:22:00 NS 1,000 mL 1,000 mL, Rate: IV No Longer [facility] [place] 150 ml/hr, Active 2012 Medical Infuse over: 6.7 Center hr, Route: IV, kg, Total Volume: 1,000, Priority: NOW, Start date: 12/01/12 13:10:00, Duration: 1 doses or times, Stop date: 12/01/12 19:51:00 Insulin regular 2 unit, 0.02 mL, SUB-Q No Longer [facility] Route: SUB-Q, Active 2012 Medical Drug form: SOLN, Center Bedtime, Dosing Weight 100, kg, PRN Blood Glucose Results, Start date: 12/01/12 13:08:00, Duration: 30 day, Stop date: 12/31/12 13:07:00 insulin aspart 4 unit, 0.04 mL, SUB-Q No Longer [facility] Route: SUB-Q, Active 2012 Medical Drug form: SOLN, Center TID-Before Meals, Dosing Weight 100, kg, PRN Blood Glucose Results, Start date: 12/01/12 13:08:00, Duration: 30 day, Stop date: 12/31/12 13:07:00 Dextrose 50% 25 gm, 50 mL, IVP No Longer [facility] Syringe Route: IVP, Drug Active 2012 Medical Form: INJ, Center Dosing Weight 100, kg, PRN, PRN Blood Glucose Results, Start date: 12/01/12 13:08:00, Duration: 30 day, Stop date: 12/31/12 13:07:00 glucagon 1 mg, Route: IM, IM No Longer [facility] Drug form: Active 2012 Medical PDR/INJ, [...] unit, 0.01 mL, SUB-Q No Longer [facility] 11[facility]30[facility] Route: SUB-Q, Active 2012 [...] mg, 2 mL, IV No Longer [facility] Route: IV, Drug Active 2012 Medical form: INJ, Q6H, Center Dosing Weight 100, kg, PRN Nausea, Start date: 11/30/12 13:32:00, Duration: 30 day, Stop date: 12/30/12 13:31:00 insulin aspart 10 unit, 0.1 mL, SUB-Q No Longer [facility] Route: SUB-Q, Active 2012 Medical Drug form: SOLN, Center TID-Before Meals, Dosing Weight 100, kg, PRN Blood Glucose Results, Start date: 11/30/12 13:26:00, Duration: 30 day, Stop date: 12/30/12 13:25:00 Zofran 4 mg, 2 mL, IV No Longer [facility] Route: IV, Drug Active 2012 Medical form: INJ, Q8H, Center Dosing Weight 100, kg, PRN Nausea, Start date: 11/30/12 11:58:00, Duration: 30 day, Stop date: 12/30/12 11:57:00 Zofran 4 mg, 2 mL, IVP No Longer [facility] Route: IVP, Drug Active 2012 Medical form: INJ, ONCE, Center Dosing Weight 100, kg, Priority: NOW, Start date: 11/30/12 11:57:00, Stop date: 11/30/12 11:57:00 potassium 2 pkt, Route: PO No Longer [facility] [place] phosphate-sodiu PO, Drug Form: Active 2012 Medical m phosphate 250 PDR/REC, ONCE, Center mg-278 mg-164 Start date: mg oral powder 11/30/12 10:00:00, Stop date: 11/30/12 10:00:00 Dextrose 5% 1,000 mL, Rate: IV No Longer [facility] [place] with 0.45% NaCl 150 ml/hr, Active 2012 Medical IV 1,000 mL Infuse over: 6.7 Center hr, Route: IV, kg, Total Volume: 1,000, Start date: 11/30/12 9:12:00, Duration: 30 day, Stop date: 12/30/12 9:11:00 insulin detemir 16 unit, 0.16 SUB-Q No Longer [facility] mL, Route: Active 2012 Medical SUB-Q, Drug Center form: INJ, Q12H, Dosing Weight 100, kg, Start date: 11/30/12 9:00:00, Duration: 30 day, Stop date: 12/29/12 21:00:00 heparin 5,000 unit, 1 SUB-Q No Longer [facility] mL, Route: Active 2012 Medical SUB-Q, Drug Center form: INJ, Q8H, Dosing Weight 100, kg, Start date: 11/30/12 8:30:00, Duration: 30 day, Stop date: 12/30/12 8:00:00 magnesium 2 gm, Route: IVPB No Longer [facility] sulfate IVPB, Drug form: Active 2012 Medical INJ, ONCE, Center Dosing Weight 100, kg, Total dose=2 gm, Start date: 11/30/12 8:05:00, Duration: 1 doses or times, Stop date: 11/30/12 8:05:00 potassium 30 mmol, Route: IVPB No Longer [facility] phosphate IVPB, ONCE, Active 2012 Medical Dosing Weight Center 100, kg, Start date: 11/30/12 8:05:00, Duration: 1 doses or times, Stop date: 11/30/12 8:05:00, For PO4=1.5 - 1.9 mg/dL; Administer when level=3 - 3.4 mEq/L in place of KClFor PO4=1.5 - 1.9 mg/dL; Administer when level=3 - 3.4 mEq/L in place of KCl heparin 5000 5,000 unit, SUB-Q No Longer [facility] units/mL Route: SUB-Q, Active 2012 Medical injectable Drug form: INJ, Center solution Q8H, Dosing Weight 100, kg, Start date: 11/30/12 8:00:00, Duration: 30 day, Stop date: 12/30/12 0:00:00 insulin aspart 10 unit, 0.1 mL, SUB-Q No Longer [facility] Route: SUB-Q, Active 2012 Medical Drug form: SOLN, Center TID-Before Meals, Dosing Weight 100, kg, PRN Blood Glucose Results, Start date: 11/30/12 7:57:00, Duration: 30 day, Stop date: 12/30/12 7:56:00 glucagon 1 mg, Route: IM, IM No Longer [facility] Drug form: Active 2012 Medical PDR/INJ, PRN, Center Dosing Weight 100, kg, PRN Blood Glucose Results, Start date: 11/30/12 7:57:00, Duration: 30 day, Stop date: 12/30/12 7:56:00 Dextrose 50% 25 gm, 50 mL, IVP No Longer [facility] Syringe Route: IVP, Drug Active 2012 [...] mg, 0.5 mL, IV No Longer [facility] Route: IV, Drug Active 2012 Medical form: INJ, Q4H, Center Dosing Weight 100, kg, PRN Hypertension, Start date: 11/29/12 22:56:00, Duration: 30 day, Stop date: 12/29/12 22:55:00 simvastatin 40 mg, 1 tab, PO No Longer [facility] Route: PO, Drug Active 2012 Medical form: TAB, Center Bedtime, Dosing Weight 101.364, kg, Start date: 11/29/12 21:00:00, Duration: 30 day, Stop date: 12/28/12 21:00:00 Cymbalta 60 mg, 1 cap, PO No Longer [facility] Route: PO, Drug Active 2012 Medical form: DRC, Center Bedtime, Dosing Weight 101.364, kg, Start date: 11/29/12 21:00:00, Stop date: 12/28/12 21:00:00 ceftriaxone 1 gm, Route: IVPB No Longer [facility] IVPB, Drug form: Active 2012 Medical PDR/INJ, Center [id number], Dosing Weight 100, kg, Start date: 11/29/12 20:00:00, Duration: 30 day, Stop date: 12/28/12 20:00:00 hydrALAZINE 5 mg, 0.25 mL, IV No Longer [facility] Route: IV, Drug Active 2012 Medical form: INJ, Q4H, Center Dosing Weight 100, kg, PRN Hypertension, Start date: 11/29/12 19:42:00, Duration: 30 day, Stop date: 12/29/12 19:41:00 Phenergan 12.5 mg, 0.5 mL, IVPB No Longer [facility] Route: IVPB, Active 2012 Medical Drug form: INJ, Center Q4H, Dosing Weight 100, kg, PRN Nausea & Vomiting, Start date: 11/29/12 17:56:00, Duration: 30 day, Stop date: 12/29/12 17:55:00 clonazepam 0.5 mg, 1 tab, PO No Longer [facility] Route: PO, Drug Active 2012 Medical [...] 1,000 mL, Rate: IV No Longer [facility] 0.9% IV 1,000 200 ml/hr, Active 2012 Medical mL Infuse over: 5 Center hr, Route: IV, kg, Total Volume: 1,000, Start date: 11/29/12 14:41:00, Stop date: 12/29/12 14:45:00 Insulin regular 99 mL, Rate: IV No Longer [facility] 100 unit + Start Insulin Active [...] 90 mg, 1 tab, PO No Longer [facility] Route: PO, Drug Active 2012 Medical form: ERTAB, Center Daily, Dosing Weight 101.364, kg, Start date: 11/29/12 9:00:00, Duration: 30 day, Stop date: 12/28/12 9:00:00 clonazepam 0.5 mg, 1 tab, PO No Longer [facility] [place] Route: PO, Drug Active 2012 Medical form: TAB, TID, Center Dosing Weight 101.364, kg, Start date: 11/29/12 9:00:00, Duration: 30 day, Stop date: 12/28/12 17:00:00 lisinopril 20 mg, 1 tab, PO No Longer [facility] Route: PO, Drug Active 2012 Medical form: TAB, Q12H, Center Dosing Weight 101.364, kg, Start date: 11/29/12 9:00:00, Duration: 30 day, Stop date: 12/28/12 21:00:00 magnesium oxide 400 mg, 1 tab, PO No Longer [facility] Route: PO, Drug Active 2012 Medical form: TAB, Center Daily, Dosing Weight 101.364, kg, Start date: 11/29/12 9:00:00, Duration: 30 day, Stop date: 12/28/12 9:00:00 Effient 10 mg, 1 tab, PO No Longer [facility] Route: PO, Drug Active 2012 Medical form: TAB, Center Daily, Dosing Weight 101.364, kg, Start date: 11/29/12 9:00:00, Duration: 30 day, Stop date: 12/28/12 9:00:00 Levemir 8 unit, 0.08 mL, SUB-Q No Longer [facility] Route: SUB-Q, Active 2012 Medical Drug [...] 81 mg, 1 tab, PO No Longer [place] [facility] Route: PO, Drug Active 2012 Medical [...] mg, 0.4 mL, SUB-Q No Longer [facility] Route: SUB-Q, Active 2012 Medical Drug form: INJ, Center [id number], Dosing Weight 101.364, kg, Start date: 11/29/12 4:00:00, Duration: 30 day, Stop date: 12/28/12 4:00:00 Phenergan 12.5 mg, 0.25 IVPB No Longer [facility] mL, Route: IVPB, Active 2012 Medical Drug form: INJ, Center Q4H, Dosing Weight 101.364, kg, Start date: 11/29/12 4:00:00, Duration: 30 day, Stop date: 12/29/12 0:00:00 tramadol 50 mg 50 mg, 1 tab, PO No Longer [facility] oral tablet Route: PO, Drug Active 2012 Medical form: TAB, Q4H, Center Dosing Weight 101.364, kg, PRN as needed for pain, Start date: 11/29/12 3:46:00, Duration: 30 day, Stop date: 12/29/12 3:45:00 insulin aspart 3 unit, 0.03 mL, SUB-Q No Longer [facility] Route: SUB-Q, Active 2012 Medical Drug form: SOLN, [place] TID-Before Meals, Dosing Weight 101.364, kg, PRN Blood Glucose Results, Start date: 11/29/12 3:26:00, Duration: 30 day, Stop date: 12/29/12 3:25:00 Dextrose 50% 12.5 gm, 25 mL, IVP No Longer [facility] Syringe Route: IVP, Drug Active 2012 Medical Form: INJ, Center Dosing Weight 101.364, kg, PRN, PRN Blood Glucose Results, Start date: 11/29/12 3:26:00, Duration: 30 day, Stop date: 12/29/12 3:25:00 glucagon 1 mg, Route: IM, IM No Longer [facility] Drug form: Active 2012 Medical PDR/INJ, PRN, Center Dosing Weight 101.364, kg, PRN Blood Glucose Results, Start date: 11/29/12 3:26:00, Duration: 30 day, Stop date: 12/29/12 3:25:00 acetaminophen 650 mg, 20.3 mL, PO No Longer [facility] Route: PO, Drug Active 2012 Medical form: LIQ, Q4H, Center Dosing Weight 101.364, kg, PRN Pain 1-3/Temp > 100.4 F, Start date: 11/29/12 3:25:00, Duration: 30 day, Stop date: 12/29/12 3:24:00 docusate 100 mg, 1 cap, PO No Longer [facility] Route: PO, Drug Active 2012 Medical form: CAP, BID, Center Dosing Weight 101.364, kg, PRN Constipation, Start date: 11/29/12 3:25:00, Duration: 30 day, Stop date: 12/29/12 3:24:00 D5W 1/2NS 1,000 1,000 mL, Rate: IV No Longer [facility] mL 75 ml/hr, Infuse Active 2012 Medical over: 13.3 hr, Center Route: IV, kg, Total Volume: 1,000, Start date: 11/29/12 3:21:00, Duration: 30 day, Stop date: 12/29/12 3:20:00 NS 0.45% IV 1,000 mL, Rate: IV No Longer [facility] 1000 mL 125 ml/hr, Active 2012 Medical Infuse over: 8 Center hr, Route: IV, Dosing Weight 101.364 kg, Total Volume: 1,000, Start date: 11/29/12 3:18:00, Duration: 30 day, Stop date: 12/29/12 3:17:00 Reglan 10 mg, 2 mL, IVP No Longer [facility] Route: IVP, Drug Active 2012 Medical form: INJ, ONCE, Center Dosing Weight 101.364, kg, Priority: STAT, Start date: 11/29/12 2:31:00, Stop date: 11/29/12 2:31:00 Zofran 8 mg, Route: IVP No Longer [facility] IVP, Drug form: Active 2012 Medical INJ, ONCE, Center Dosing Weight 101.364, kg, Priority: STAT, Start date: 11/29/12 1:52:00, Stop date: 11/29/12 1:52:00 Lortab 500 5 ml, PO, Q6H, PO No Longer [facility] mg-7.5 mg/15 mL PRN, 120 mL, for Active 2012 Medical oral elixir pain, Center Substitution Allowed, Maintenance, ELIX Phenergan 25 mg 1 supp, WA, Q6H, WA Active [facility] rectal PRN, 9 supp, 2013 Medical suppository Nausea & Center Vomiting, Substitution Allowed Phenergan 12.5 mg, 0.5 mL, IVPB No Longer [facility] Route: IVPB, Active 2012 Medical Drug form: INJ, Center ONCE, Dosing Weight 101.364, kg, Priority: STAT, Start date: 11/29/12 0:56:00, Stop date: 11/29/12 0:56:00 Zofran 4 mg, 2 mL, IVP No Longer [facility] Route: IVP, Drug 2012 Medical [...] 5 ml, Route: IVP No Longer [facility] 0.9% IVP, Drug Form: Active 2012 Medical INJ, Dosing Center Weight 101.364, kg, PRN, PRN Line Flush, Start date: 11/28/12 19:29:00, Duration: 30 day, Stop date: 12/28/12 19:28:00 calcium 2,000 mg, 20 mL, IVPB No Longer [facility] gluconate + Route: IVPB, Active 2012 Medical Sodium Chloride ONCE, Dosing Center 0.9% IV 80 mL Weight 103.21, kg, Start date: 11/17/12 11:02:00, Stop date: 11/17/12 11:02:00 magnesium 2 gm, 50 mL, IVPB No Longer [facility] sulfate Route: IVPB, Active 2012 Medical Drug form: INJ, Center Q2H, Dosing Weight 103.21, kg, Total dose=4 gm, Start date: 11/17/12 10:00:00, Duration: 2 doses or times, Stop date: 11/17/12 12:00:00 aspirin 81 mg, 1 tab, PO No Longer [facility] Route: PO, Drug Active 2012 Medical form: ECTAB, Center Daily, Dosing Weight 100, kg, Start date: 11/17/12 9:00:00, Duration: 30 day, Stop date: 12/16/12 9:00:00 simvastatin 40 mg, 1 tab, PO No Longer [facility] Route: PO, Drug Active 2012 Medical form: TAB, Center Daily, Dosing Weight 100, kg, Start date: 11/17/12 9:00:00, Duration: 30 day, Stop date: 12/16/12 9:00:00 prasugrel 10 mg, 1 tab, PO No Longer [facility] Route: PO, Drug Active 2012 Medical form: TAB, Center Daily, Dosing Weight 100, kg, Start date: 11/17/12 9:00:00, Duration: 30 day, Stop date: 12/16/12 9:00:00 NIFEdipine 90 mg, 1 tab, PO No Longer [facility] Route: PO, Drug Active 2012 Medical form: ERTAB, Center Daily, Dosing Weight 100, kg, Start date: 11/17/12 9:00:00, Duration: 30 day, Stop date: 12/16/12 9:00:00 Toprol-XL 100 100 mg, 1 tab, PO No Longer [facility] mg oral tablet, Route: PO, Drug Active 2012 Medical extended form: ERTAB, Center release Daily, Start date: 11/17/12 9:00:00, Duration: 30 day, Stop date: 12/16/12 9:00:00 magnesium oxide 400 mg, 1 tab, PO No Longer [facility] Route: PO, Drug Active 2012 Medical form: TAB, Center Daily, Dosing Weight 100, kg, Start date: 11/17/12 9:00:00, Duration: 30 day, Stop date: 12/16/12 9:00:00 insulin detemir 15 unit, 0.15 SUB-Q No Longer [facility] mL, Route: Active 2012 Medical SUB-Q, Drug Center form: INJ, Daily, Dosing Weight 100, kg, Start date: 11/17/12 9:00:00, Duration: 30 day, Stop date: 12/16/12 9:00:00 Zofran 8 mg, 4 mL, IV No Longer [facility] Route: IV, Drug Active 2012 Medical form: INJ, Q4H, Center Dosing Weight 103.21, kg, PRN as needed for nausea/vomiting, Start date: 11/17/12 8:56:00, Duration: 30 day, Stop date: 12/17/12 8:55:00 Reglan 10 mg 10 mg, 1 tab, PO No Longer [facility] oral tablet Route: PO, Drug Active 2012 Medical form: TAB, Center TID-Before Meals, Dosing Weight 100, kg, Start date: 11/17/12 7:30:00, Duration: 30 day, Stop date: 12/16/12 16:30:00 insulin aspart 4 unit, 0.04 mL, SUB-Q No Longer [facility] Route: SUB-Q, Active 2012 Medical Drug form: SOLN, Center TID-Before Meals, Dosing Weight 100, kg, Start date: 11/17/12 7:30:00, Duration: 30 day, Stop date: 12/16/12 16:30:00 Cymbalta 120 mg, 2 cap, PO No Longer [facility] Route: PO, Drug Active 2012 Medical form: DRC, Center Bedtime, Dosing Weight 100, kg, Start date: 11/16/12 21:00:00, Duration: 30 day, Stop date: 12/15/12 21:00:00 lisinopril 20 mg, 1 tab, PO No Longer [facility] Route: PO, Drug Active 2012 Medical form: TAB, Q12H, Center Dosing Weight 100, kg, Start date: 11/16/12 21:00:00, Duration: 30 day, Stop date: 12/16/12 9:00:00 insulin detemir 12 unit, 0.12 SUB-Q No Longer [facility] mL, Route: Active 2012 Medical SUB-Q, Drug Center form: INJ, Bedtime, Dosing Weight 100, kg, Start date: 11/16/12 21:00:00, Duration: 30 day, Stop date: 12/15/12 21:00:00 clonazepam 0.5 mg, 1 tab, PO No Longer [facility] Route: PO, Drug Active 2012 Medical form: TAB, TID, Center Dosing Weight 100, kg, Start date: 11/16/12 20:30:00, Duration: 30 day, Stop date: 12/16/12 17:00:00 Neutra-Phos 1 pkt, Route: PO No Longer [facility] PO, Drug Form: Active 2012 Medical PDR/REC, Dosing Center Weight 100, kg, TID-Before Meals, Start date: 11/16/12 20:30:00, Duration: 30 day, Stop date: 12/16/12 16:30:00 enoxaparin 40 mg, 0.4 mL, SUB-Q No Longer [facility] Route: SUB-Q, Active 2012 Medical Drug form: INJ, Center [id number], Dosing Weight 100, kg, Start date: 11/16/12 [...] unit, 0.1 mL, SUB-Q No Longer [facility] Route: SUB-Q, Active 2012 Medical Drug form: SOLN, Center TID-Before Meals, Dosing Weight 100, kg, PRN Blood Glucose Results, Start date: 11/16/12 18:10:00, Duration: 30 day, Stop date: 12/16/12 18:09:00 Dextrose 50% 12.5 gm, 25 mL, IVP No Longer [facility] Syringe Route: IVP, Drug Active 2012 Medical Form: INJ, Center Dosing Weight 100, kg, PRN, PRN Blood Glucose Results, Start date: 11/16/12 18:10:00, Duration: 30 day, Stop date: 12/16/12 18:09:00 glucagon 1 mg, Route: IM, IM No Longer [facility] Drug form: Active 2012 Medical PDR/INJ, PRN, Center Dosing Weight 100, kg, PRN Blood Glucose Results, Start date: 11/16/12 18:10:00, Duration: 30 day, Stop date: 12/16/12 18:09:00 Payne 5/325 1 tab, Route: PO No Longer [facility] oral tablet PO, Drug Form: Active 2012 Medical TAB, Dosing Center Weight 100, kg, Q6H, PRN as needed for pain, Start date: 11/16/12 18:07:00, Duration: 30 day, Stop date: 12/16/12 18:06:00 tramadol 50 mg 50 mg, 1 tab, PO No Longer [facility] oral tablet Route: PO, Drug Active 2012 Medical form: TAB, Q4H, Center Dosing Weight 100, kg, PRN as needed for pain, Start date: 11/16/12 18:01:00, Duration: 30 day, Stop date: 12/16/12 18:00:00 promethazine 25 mg, 1 tab, PO No Longer [facility] Route: PO, Drug Active 2012 Medical form: TAB, Q4H, Center Dosing Weight 100, kg, PRN as needed for nausea/vomiting, Start date: 11/16/12 18:01:00, Duration: 30 day, Stop date: 12/16/12 18:00:00 ondansetron 8 mg, 2 tab, PO No Longer [facility] Route: PO, Drug Active 2012 Medical form: TABDIS, Center Q8H, Dosing Weight 100, kg, PRN Nausea & Vomiting, Start date: 11/16/12 18:01:00, Stop date: 12/16/12 18:00:00, nauea ondansetron 8 8 mg, 1 tab, PO, PO Active [facility] mg oral tablet, Q8H, PRN, 2012 Medical disintegrating Dissolve under Center tongue, 10 tab, as needed for nausea/vomiting, Substitution AllowedDissolve under tongue Effient 10 mg 10 mg, 1 tab, PO Active [facility] oral tablet PO, Daily, 30 2012 Medical tab, Center Substitution Allowed, TAB tramadol 50 mg 50 mg, 1 tab, PO Active [place] [facility] oral tablet PO, Q4H, PRN, 60 2012 Medical tab, for pain, Center Substitution Allowed, TAB clonazepam 0.5 0.5 mg, 1 tab, PO Active [place] [facility] mg oral tablet PO, TID, 2012 [...] Duration: 1 doses or times, Dose=2.2ml/kg, Max [id number] -- "To be infused by Radiology Staff ONLY"Dose=2.2ml/ kg, Max [id number] -- "To be infused by Radiology Staff [...] 1 mg, 0.5 mL, IVP No Longer [place] [facility] Route: IVP, Drug Active 2012 Medical [...] mg, 4 tab, CHEW No Longer [facility] Route: CHEW, Active 2012 Medical Drug form: Center CHEWTAB, ONCE, Dosing Weight 100, kg, Priority: STAT, Start date: 11/16/12 13:29:00, Stop date: 11/16/12 13:29:00 Zofran 8 mg, 4 mL, IVP No Longer [facility] Route: IVP, Drug Active 2012 Medical form: INJ, ONCE, Center Dosing Weight 100, kg, Priority: STAT, Start date: 11/16/12 13:17:00, Stop date: 11/16/12 13:17:00 Saline Flush 5 mL, Route: IVP No Longer [facility] 0.9% IVP, Drug Form: Active 2012 Medical INJ, Dosing Center Weight 100, kg, Q8H, PRN Line Flush, Start date: 11/16/12 13:16:00, Duration: 30 day, Stop date: 12/16/12 13:15:00, Administer at least once every 8 hoursAdminister at least once every 8 hours Reglan 10 mg 10 mg, 1 tab, PO Active [facility] oral tablet PO, TID-Before 2012 Medical Meals, PRN, 42 Center tab, nausea, Substitution Allowed, TAB [place] 5/325 1 tab, PO, Q6H, PO Active [facility] 11/14[facility] oral tablet PRN, 10 tab, 2013 Medical Pain, Center Substitution Allowed, Maintenance, TAB ondansetron 8 8 mg, 1 tab, PO, PO Active [facility] 11/14[facility] mg oral tablet, Q8H, PRN, 60 2012 Medical disintegrating tab, 1, 1, Center Nausea, Substitution Allowed, TABDIS insulin detemir 12 unit, 0.12 SUB-Q Active [facility] 100 units/mL mL, SUB-Q, 2012 Medical subcutaneous Bedtime, 4 mL, Center solution Substitution Allowed, INJ insulin detemir 15 unit, 0.15 SUB-Q Active [facility] 11/14[facility] 100 units/mL mL, SUB-Q, 2012 Medical subcutaneous Daily, 5 mL, [place] solution Substitution Allowed, INJ Zofran 4 mg, 1 tab, PO No Longer [facility] Route: PO, Drug Active 2012 Medical form: TAB, Q8H, Center Dosing Weight 100, kg, Start date: 11/14/12 16:00:00, Duration: 30 day, Stop date: 12/14/12 8:00:00 Reglan 10 mg 10 mg, 1 tab, PO No Longer [facility] oral tablet Route: PO, Drug Active 2012 Medical form: TAB, Center TID-Before Meals, Dosing Weight 100, kg, Start date: 11/14/12 11:30:00, Duration: 30 day, Stop date: 12/14/12 7:30:00 calcium 2,000 mg, 20 mL, IVPB No Longer [facility] gluconate + Route: IVPB, Active 2012 Medical Sodium Chloride Drug form: INJ, [place] 0.9% IV 100 mL Q2H, Dosing Weight 100, kg, Total evpm=4385 mg, Start date: 11/14/12 8:00:00, Duration: 2 doses or times, Stop date: 11/14/12 10:00:00 magnesium 2 gm, 50 mL, IVPB No Longer [facility] sulfate Route: IVPB, Active 2012 Medical [...] 20 mEq, 100 mL, IVPB No Longer [facility] chloride Route: IVPB, Active 2012 Medical Drug form: INJ, Center ONCE, Dosing Weight 100, kg, Total dose=20mEq, Start date: 11/13/12 7:58:00, Duration: 1 doses or times, Stop date: 11/13/12 7:58:00, For K=3.5 - 3.9 mEq/LFor K=3.5 - 3.9 mEq/L calcium 1,000 mg, 10 mL, IVPB No Longer [facility] gluconate + Route: IVPB, Active 2012 Medical Sodium Chloride ONCE, Dosing Center 0.9% IV 50 mL Weight 100, kg, Start date: 11/13/12 7:56:00, Stop date: 11/13/12 7:56:00 Reglan 10 mg, 2 mL, IVP No Longer [facility] Route: IVP, Drug Active 2012 Medical form: INJ, Center Before Meals & Bedtime, Dosing Weight 100, kg, Start date: 11/12/12 16:30:00, Duration: 30 day, Stop date: 12/12/12 11:30:00 [place] 5/325 1 tab, Route: PO No Longer [facility] [place] oral tablet PO, Drug Form: Active jaida 2012 Medical TAB, Dosing Center Weight 100, kg, Q6H, PRN Pain, Start date: 11/12/12 16:07:00, Duration: 30 day, Stop date: 12/12/12 16:06:00 Reglan 10 mg, Route: IVP No Longer [facility] IVP, Q6H, Dosing Active 2012 Medical Weight 100, kg, Center PRN Nausea & Vomiting, Start date: 11/12/12 12:35:00, Duration: 30 day, Stop date: 12/12/12 12:34:00 insulin detemir 15 unit, Route: SUB-Q No Longer [facility] SUB-Q, ONCE, Active 2012 Medical Dosing Weight Center 100, kg, Priority: NOW, Start date: 11/12/12 10:38:00, Stop date: 11/12/12 10:38:00 heparin 7,500 unit, 1.5 SUB-Q No Longer [facility] mL, Route: Active 2012 Medical SUB-Q, [...] Chloride 1,000 mL, Rate: IV No Longer [facility] [place] 0.9% (Bolus) IV 1,000 ml/hr, Active 2012 Medical 1,000 mL Infuse over: 1 Center hr, Route: IV, kg, Total Volume: 1,000, Priority: STAT, Start date: 11/10/12 20:17:00, Duration: 1 doses or times, Stop date: 11/10/12 21:16:00, Bolus DoseBolus Dose insulin detemir 10 unit, 0.1 mL, SUB-Q No Longer [facility] Route: SUB-Q, Active 2012 Medical Drug form: INJ, Center ONCE, Dosing Weight 100, kg, Priority: NOW, Start date: 11/10/12 11:40:00, Stop date: 11/10/12 11:40:00 Zofran ODT 4 mg, 1 tab, PO No Longer [facility] [place] Route: PO, Drug Active 2012 Medical form: TABDIS, Center Q8H, Dosing Weight 100, kg, PRN Nausea, Start date: 11/10/12 11:04:00, Duration: 30 day, Stop date: 12/10/12 11:03:00 Phenergan 12.5 mg, 0.5 mL, IM No Longer [facility] [place] Route: IM, Drug 2012 Medical form: INJ, PRN, Center Dosing Weight 100, kg, PRN as needed for nausea/vomiting, Start date: 11/10/12 10:00:00, Duration: 30 day, Stop date: 12/10/12 10:59:00 insulin detemir 16 unit, 0.16 SUB-Q No Longer [place] mL, Route: Active 2012 Medical SUB-Q, Drug Center form: INJ, ONCE, Dosing Weight 100, kg, Start date: 11/10/12 0:20:00, Stop date: 11/10/12 0:20:00 NovoLog 6 unit, 0.06 mL, SUB-Q No Longer [facility] Route: SUB-Q, Active 2012 Medical Drug form: SOLN, Center TID-Before Meals, Dosing Weight 100, kg, Start date: 11/09/12 16:30:00, Duration: 30 day, Stop date: 12/09/12 11:30:00 insulin aspart 7 unit, 0.07 mL, SUB-Q No Longer [facility] Route: SUB-Q, Active 2012 Medical Drug form: SOLN, Center ONCE, Dosing Weight 100, kg, Start date: 11/09/12 13:24:00, Stop date: 11/09/12 13:24:00 insulin detemir 20 unit, 0.2 mL, SUB-Q No Longer [facility] Route: SUB-Q, Active 2012 Medical Drug form: INJ, Center Daily, Dosing Weight 100, kg, Start date: 11/09/12 9:00:00, Duration: 30 day, Stop date: 12/08/12 9:00:00 morphine 1 mg, 0.5 mL, IV No Longer [facility] Sulfate Route: IV, Drug Active 2012 Medical form: INJ, ONCE, Center Dosing Weight 100, kg, Start date: 11/09/12 5:28:00, Stop date: 11/09/12 5:28:00 insulin detemir 12 unit, 0.12 SUB-Q No Longer [facility] mL, Route: Active 2012 Medical SUB-Q, Drug Center form: INJ, Bedtime, Dosing Weight 100, kg, Start date: 11/08/12 21:00:00, Stop date: 12/07/12 21:00:00 morphine 2 mg, 1 mL, IVP No Longer [facility] Sulfate Route: IVP, Drug Active 2012 Medical form: INJ, ONCE, Center Dosing Weight 100, kg, Start date: 11/08/12 18:34:00, Stop date: 11/08/12 18:34:00 ampicillin + 1,500 mg, Route: IVPB No Longer [facility] Sodium Chloride IVPB, Drug form: Active 2012 Medical 0.9% IV 100 mL PDR/INJ, [id number], Center Dosing Weight 100, kg, Start date: 11/08/12 18:00:00, Duration: 30 day, Stop date: 12/08/12 12:00:00 ciprofloxacin 500 mg, 1 tab, PO No Longer [facility] Route: PO, Drug Active 2012 Medical form: TAB, Center [id number], Dosing Weight 100, kg, Start date: 11/08/12 17:00:00, Duration: 30 day, Stop date: 12/08/12 5:00:00 Rocephin 1 gm, Route: IVPB No Longer [facility] IVPB, Drug form: Active 2012 Medical PDR/INJ, ONCE, Center Dosing Weight 100, kg, Start date: 11/08/12 13:11:00, Stop date: 11/08/12 13:11:00 insulin aspart 2 unit, 0.02 mL, SUB-Q No Longer [facility] Route: SUB-Q, Active 2012 Medical Drug form: SOLN, Center TID-Before Meals, Dosing Weight 100, kg, PRN Blood Glucose Results, Start date: 11/08/12 10:45:00, Duration: 30 day, Stop date: 12/08/12 10:44:00 insulin aspart 2 unit, 0.02 mL, SUB-Q No Longer Ada [facility] Route: SUB-Q, Active 2012 Medical Drug form: SOLN, Center TID-Before Meals, Dosing Weight 100, kg, PRN Blood Glucose Results, Start date: 11/07/12 18:47:00, Duration: 30 day, Stop date: 12/07/12 18:46:00 magnesium 2 gm, 50 mL, IVPB No Longer [facility] sulfate Route: IVPB, Active 2012 Medical Drug form: INJ, Center Q2H, Dosing Weight 100, kg, Start date: 11/07/12 8:00:00, Duration: 2 doses or times, Stop date: 11/07/12 10:00:00, For Mg=1.5 - 1.7 mg/dLFor Mg=1.5 - 1.7 mg/dL magnesium 2 gm, Route: IVPB No Longer Loida [facility] sulfate IVPB, Drug form: Active 2012 Medical SOLN, ONCE, Center Dosing Weight 100, kg, Start date: 11/07/12 7:42:00, Duration: 1 doses or times, Stop date: 11/07/12 7:42:00, For Mg=1.8 - 2 mg/dLFor Mg=1.8 - 2 mg/dL Protonix 40 mg, Route: IVP No Longer Quintanilla [facility] IVP, Drug form: Active 2012 Medical [...] 84 mg, Route: IVP No Longer Ahmad [facility] IVP, ONCE, Active 2012 Medical Dosing Weight Center 100, kg, Priority: Routine, Start date: 11/06/12 10:20:00, Stop date: 11/06/12 10:20:00 Insulin regular 10 unit, 0.1 mL, SUB-Q No Longer [facility] Route: SUB-Q, 2012 Medical Drug form: SOLN, Center ONCE, Dosing Weight 100, kg, Start date: 11/06/12 9:47:00, Stop date: 11/06/12 9:47:00 insulin aspart 10 unit, 0.1 mL, SUB-Q No Longer [facility] Route: SUB-Q, 2012 Medical Drug form: SOLN, Center ONCE, Dosing Weight 100, kg, Start date: 11/06/12 9:43:00, Stop date: 11/06/12 9:43:00 Lactated 1,000 mL, Rate: IV No Longer [place] (Bolus) 1,000 ml/hr, Active 2012 Medical IV 1,000 mL Infuse over: 1 Center hr, Route: IV, kg, Total Volume: 1,000, Bolus Dose, Priority: STAT, Start date: 11/06/12 9:14:00, Duration: 1 doses or times, Stop date: 11/06/12 10:13:00 Insulin regular 9 unit, 0.09 mL, SUB-Q No Longer Ada [facility] Route: SUB-Q, Active 2012 Medical Drug [...] PO, Drug Active 2012 Medical form: ERTAB, [place] Daily, Dosing Weight 100, kg, Start date: 11/06/12 9:00:00, Duration: 30 day, Stop date: 12/05/12 9:00:00 Toprol-XL 100 100 mg, 1 tab, PO No Longer [place] mg oral tablet, Route: PO, Drug Active 2012 Medical extended form: ERTAB, [place] release Daily, Start date: 11/06/12 9:00:00, Duration: [...] Drug Active 2012 Medical coated form: ECTAB, [place] Daily, Dosing Weight 100, kg, Start date: 11/06/12 9:00:00, Duration: 30 day, Stop date: 12/05/12 9:00:00 Cymbalta 60 mg, 2 cap, PO No Longer [place] Fei Route: PO, Drug Active 2012 Medical form: DRC, [place] Daily, Dosing Weight 100, kg, Start date: [...] SUB-Q, Active 2012 Medical Drug form: SOLN, [place] TID-Before Meals, Dosing Weight 100, kg, Start date: 11/06/12 7:30:00, Duration: 30 day, Stop date: 12/05/12 16:30:00 metoclopramide 10 mg, 2 mL, IVP No Longer Aristides [facility] Route: IVP, Drug Active 2012 Medical form: INJ, Q6H, Center Dosing Weight 100, kg, PRN Nausea & Vomiting, Start date: 11/06/12 1:49:00, Duration: 30 day, Stop date: 12/06/12 1:48:00 Benadryl 25 mg, 0.5 mL, IV No Longer Gee [facility] Route: IV, Drug Active 2012 Medical form: INJ, Q4H, Center Dosing Weight 100, kg, PRN as needed for nausea/vomiting, Start date: 11/06/12 1:44:00, Duration: 30 day, Stop date: 12/06/12 1:43:00 Phenergan 12.5 mg, 0.5 mL, IVPB No Longer [facility] Route: IVPB, Active 2012 Medical Drug form: INJ, Center Q6H, Dosing Weight 100, kg, PRN Nausea & Vomiting, Start date: 11/06/12 1:43:00, Stop date: 12/06/12 1:42:00 Benadryl 25 mg, 1 cap, PO No Longer [facility] Route: PO, Drug Active 2012 Medical form: CAP, TID, Center Dosing Weight 100, kg, PRN Nausea, Start date: 11/06/12 0:31:00, Duration: 30 day, Stop date: 12/06/12 0:30:00 labetalol 20 mg, 4 mL, IVP No Longer [facility] [facility] Route: IVP, Drug Active 2012 Medical form: INJ, ONCE, Center Dosing Weight 100, kg, Start date: 11/06/12 0:25:00, Stop date: 11/06/12 0:25:00 simvastatin 40 mg, 1 tab, PO No Longer [place] [facility] Route: PO, Drug Active 2012 Medical form: TAB, Center Bedtime, Dosing Weight 100, kg, Start date: 11/05/12 23:00:00, Duration: 30 day, Stop date: 12/05/12 21:00:00 lisinopril 20 mg, 1 tab, PO No Longer [facility] [facility] Route: PO, Drug Active 2012 Medical form: TAB, Q12H, Center Dosing Weight 100, kg, Start date: 11/05/12 23:00:00, Duration: 30 day, Stop date: 12/05/12 21:00:00 insulin detemir 20 unit, 0.2 mL, SUB-Q No Longer Olejarski [facility] Route: SUB-Q, Active 2012 Medical Drug form: INJ, Center Q12H, Dosing Weight 100, kg, Start date: 11/05/12 23:00:00, Stop date: 12/05/12 21:00:00 magnesium oxide 400 mg, 1 tab, PO Active [place] 400 mg oral PO, Daily, 2012 Medical tablet tab, Center Substitution Allowed, TAB metoprolol 100 100 mg, 1 tab, PO Active [facility] mg oral tablet, PO, Daily, 2012 Medical extended tab, Center release Substitution Allowed NIFEdipine 90 90 mg, 1 tab, PO Active [facility] mg oral tablet, PO, Daily, 30 2012 Medical extended tab, Center release Substitution Allowed, ERTAB prasugrel 10 mg 10 mg, 1 tab, PO Active [facility] oral tablet PO, Daily, 2012 Medical tab, Center Substitution Allowed, TAB Cymbalta 60 mg, Daily, Active [facility] Substitution 2012 Medical Allowed Center tramadol 50 mg 50 mg, 1 tab, PO No Longer [facility] [facility] oral tablet Route: PO, Drug Active 2012 Medical form: TAB, Q4H, Center Dosing Weight 100, kg, PRN For Pain, Start date: 11/05/12 22:39:00, Duration: 30 day, Stop date: 12/05/12 22:38:00 promethazine 25 mg, 1 tab, PO No Longer [facility] Route: PO, Drug Active 2012 Medical form: TAB, Q6H, Center Dosing Weight 100, kg, PRN as needed for nausea/vomiting, Start date: 11/05/12 22:39:00, Duration: 30 day, Stop date: 12/05/12 22:38:00 Phenergan 25 mg, 1 tab, PO No Longer [place] Route: PO, Drug Active 2012 Medical form: [...] 5 ml, Route: IVP No Longer [place] 0.9% IVP, Drug Form: 2012 Medical INJ, Dosing Center Weight 104.545, kg, PRN, PRN Line Flush, Start date: 11/05/12 22:14:00, Duration: 30 day, Stop date: 12/05/12 23:13:00 Sodium Chloride 500 mL, Rate: IV No Longer [place] 0.9% (Bolus) IV 2,000 ml/hr, Active 2012 Medical 500 mL Infuse over: 15 Center minutes, Route: IV, kg, Total Volume: 500, Priority: STAT, Start date: 11/05/12 22:14:00, Duration: 1 doses or times, Stop date: 11/05/12 22:28:00 nitroglycerin 0.4 mg, 1 tab, SL No Longer [place] SL Tab Route: SL, Drug 2012 Medical form: TAB, Center Q5Min, Dosing Weight 104.545, kg, PRN Chest Pain, Start date: 11/05/12 22:14:00, Duration: 3 doses or times, Stop date: Limited # of times Phenergan 12.5 mg, Route: IVPB No Longer Dilan [place] IVPB, ONCE, Active 2012 Medical Dosing Weight Center 104.545, kg, Priority: STAT, Start date: 11/05/12 22:05:00, Stop date: 11/05/12 22:05:00 Phenergan 12.5 mg, 0.5 mL, IVPB No Longer Dilan [facility] Route: IVPB, Active 2012 Medical Drug form: INJ, Center ONCE, Dosing Weight 104.545, kg, Priority: STAT, Start date: 11/05/12 21:08:00, Stop date: 11/05/12 21:08:00 carvedilol 12.5 mg, 1 tab, PO No Longer Dilan [facility] Route: PO, Drug Active 2012 Medical form: TAB, ONCE, Center Dosing Weight 104.545, kg, Start date: 11/05/12 19:20:00, Stop date: 11/05/12 19:20:00 Effient 10 mg, 1 tab, PO No Longer Dilan [facility] Route: PO, Drug Active 2012 Medical form: TAB, ONCE, Center Dosing Weight 104.545, kg, Start date: 11/05/12 19:16:00, Stop date: 11/05/12 19:16:00 ondansetron 4 mg, 2 mL, IVP No Longer Dilan [facility] Route: IVP, Drug Active 2012 Medical form: INJ, ONCE, Center Dosing Weight 104.545, kg, Priority: STAT, Start date: 11/05/12 19:14:00, Stop date: 11/05/12 19:14:00 aspirin 324 mg, 4 tab, PO No Longer Dilan [facility] Route: PO, Drug Active 2012 Medical form: CHEWTAB, Center ONCE, Dosing Weight 104.545, kg, Priority: STAT, Start date: 11/05/12 19:14:00, Stop date: 11/05/12 19:14:00 Saline Flush 5 mL, Route: IVP No Longer Dilan [facility] 0.9% IVP, Drug Form: Active 2012 [...] 16 unit, 0.16 SUB-Q No Longer Fitzpatrick [facility] mL, Route: Active 2012 Medical SUB-Q, Drug Center form: INJ, Q12H, Dosing Weight 78.2, kg, Start date: 10/31/12 21:00:00, Duration: 30 day, Stop date: 11/30/12 9:00:00 insulin aspart 4 unit, 0.04 mL, SUB-Q Active [facility] 100 units/mL SUB-Q, 2012 Medical subcutaneous TID-Before Center solution Meals, 1 vial, 2, 2, Substitution Allowed, SOLN insulin detemir 16 unit, 0.16 SUB-Q Active [facility] 100 units/mL mL, SUB-Q, Q12H, 2012 Medical subcutaneous 1 vial, 2, 2, Center solution Substitution Allowed, INJ tramadol 50 mg 50 mg, 1 tab, PO Active [facility] [place] oral tablet PO, Q4H, PRN, 30 2012 Medical tab, as needed Center for pain, Substitution Allowed, TAB simvastatin 40 40 mg, 1 tab, PO Active [facility] [place] mg oral tablet PO, Bedtime, 30 [...] 8 mg, 1 tab, PO, PO Active [facility] 10/31/ [place] mg oral tablet, Q8H, PRN, 60 2012 Medical disintegrating tab, 1, 1, Center Nausea, Substitution Allowed, TABDIS NIFEdipine 90 90 mg, 1 tab, PO Active [facility] 10/31/ [place] mg oral tablet, PO, Daily, 30 2012 Medical extended tab, 1, 1, Center release Substitution Allowed, ERTAB Toprol-XL 100 100 mg, 1 tab, PO Active [facility] 10/31/ [place] mg oral tablet, PO, Daily, 30 2012 Medical extended tab, 1, 1, Center release Substitution Allowed, ERTAB magnesium oxide 400 mg, 1 tab, PO Active [facility] [place] 400 mg oral PO, Daily, 30 2012 Medical tablet tab, 1, 1, Center Substitution Allowed, TAB lisinopril 20 20 mg, 1 tab, PO Active [facility] mg oral tablet PO, Q12H, 60 2012 Medical tab, 1, 1, Center Substitution Allowed, TAB aspirin 81 mg 81 mg, 1 tab, PO Active [facility] tablet, enteric PO, Daily, 30 2012 [...] mEq, 15 mL, PO No Longer Steward [place] chloride Route: PO, Drug Active 2012 Medical form: LIQ, ONCE, Center Dosing Weight 78.2, kg, Start date: 10/30/12 7:44:00, Stop date: 10/30/12 7:44:00 Haldol 2 mg, 0.4 mL, IV No Longer Funez Kamel [facility] Route: IV, Drug Active 2012 Medical form: INJ, ONCE, Center Dosing Weight 78.2, kg, Start date: 10/30/12 5:42:00, Stop date: 10/30/12 5:42:00 tramadol 50 mg 50 mg, 1 tab, PO No Longer [facility] oral tablet Route: PO, Drug 2012 Medical form: TAB, Q4H, Center Dosing Weight 78.2, kg, PRN as needed for pain, Start date: 10/29/12 9:45:00, Duration: 30 day, Stop date: 11/28/12 9:44:00 Toradol 15 15 mg, 0.5 mL, IV No Longer [facility] mg/mL Route: IV, Drug 2012 Medical injectable form: INJ, ONCE, Center solution Dosing Weight 78.2, kg, Start date: 10/29/12 6:54:00, Stop date: 10/29/12 6:54:00 Toradol 15 15 mg, 0.5 mL, IV No Longer [facility] mg/mL Route: IV, Drug Active 2012 Medical injectable form: INJ, ONCE, Center solution Dosing Weight 78.2, kg, Start date: 10/29/12 1:07:00, Stop date: 10/29/12 1:07:00 insulin detemir 20 unit, 0.2 mL, SUB-Q No Longer Amari [facility] Route: SUB-Q, Active 2012 Medical Drug [...] labetalol 20 mg, Route: IVP No Longer [place] 02/22[facility] IVP, Drug form: Active 2012 Medical INJ, ONCE, Center Dosing Weight 78.2, kg, Start date: 10/27/12 19:28:00, Stop date: 10/27/12 19:28:00 labetalol 20 mg, 4 mL, IVP No Longer [place] [facility] Route: IVP, Drug Active 2012 Medical form: INJ, ONCE, Center Dosing Weight 78.2, kg, Start date: 10/27/12 17:28:00, Stop date: 10/27/12 17:28:00 Benadryl 25 mg, 1 cap, PO No Longer [place] [facility] Route: PO, Drug Active 2012 Medical form: CAP, ONCE, Center Dosing Weight 78.2, kg, Start date: 10/27/12 17:28:00, Stop date: 10/27/12 17:28:00 Reglan 10 mg 10 mg, Route: PO No Longer [place] [facility] oral tablet PO, Drug form: Active 2012 Medical TAB, Before Center Meals & Bedtime, Dosing Weight 78.2, kg, Start date: 10/27/12 16:30:00, Duration: 30 day, Stop date: 11/26/12 11:30:00 Reglan 5 mg, 1 mL, IV No Longer [facility] Route: IV, Drug Active 2012 Medical form: INJ, Q8H, Center Dosing Weight 78.2, kg, Start date: 10/27/12 16:00:00, Duration: 30 day, Stop date: 11/26/12 8:00:00 Reglan 5 mg, 1 mL, IV No Longer [facility] Route: IV, Drug Active 2012 Medical form: INJ, Q8H, Center Dosing Weight 78.2, kg, PRN Nausea, Start date: 10/27/12 13:08:00, Duration: 30 day, Stop date: 11/26/12 13:07:00 lisinopril 20 mg, 1 tab, PO No Longer [facility] Route: PO, Drug Active 2012 Medical form: TAB, Q12H, Center Dosing Weight 78.2, kg, Start date: 10/27/12 10:00:00, Duration: 30 day, Stop date: 11/26/12 9:00:00 ergocalciferol 50,000 IntlUnit, PO No Longer Manlapaz [place] 1 cap, Route: Active 2012 Medical PO, Drug form: Center CAP, Daily, Dosing Weight 78.2, kg, Start date: 10/27/12 9:00:00, Duration: 4 day, Stop date: 10/30/12 9:00:00 magnesium oxide 400 mg, 1 tab, PO No Longer Gee [place] Route: PO, Drug Active 2012 Medical form: TAB, Center Daily, Dosing Weight 78.2, kg, Start date: 10/27/12 9:00:00, Duration: 30 day, Stop date: 11/25/12 9:00:00 Toprol-XL 100 100 mg, 1 tab, PO No Longer [place] mg oral tablet, Route: PO, Drug Active 2012 Medical extended form: ERTAB, [place] release Daily, Start date: 10/27/12 9:00:00, Duration: 30 day, Stop date: 11/25/12 9:00:00 insulin aspart 7 unit, Route: SUB-Q No Longer Manlapaz [facility] SUB-Q, Drug Active 2012 Medical form: NIRU [place] TID-Before Meals, Dosing Weight 78.2, kg, Start date: 10/26/12 12:00:00, Duration: 30 day, Stop date: 11/25/12 11:30:00 Insulin regular 10 unit, 0.1 mL, SUB-Q No Longer Steward [facility] Route: SUB-Q, Active 2012 Medical Drug form: NIRU [place] ONCE, Dosing Weight 78.2, kg, Start date: 10/26/12 10:32:00, Stop date: 10/26/12 10:32:00 NIFEdipine 90 mg, 1 tab, PO No Longer [facility] extended Route: PO, Drug Active 2012 Medical release form: ERTAB, [place] Daily, Dosing Weight 78.2, kg, Start date: 10/26/12 9:00:00, Duration: 30 day, Stop date: 11/24/12 9:00:00 metoprolol 25 mg, 1 tab, PO No Longer [place] [facility] tartrate Route: PO, Drug Active 2012 Medical form: TAB, Q12H, Center Dosing Weight 78.2, kg, Start date: 10/26/12 9:00:00, Duration: 30 day, Stop date: 11/24/12 21:00:00 Reglan 10 mg, 1 tab, PO No Longer [place] [facility] Route: PO, Drug Active 2012 Medical [...] Active 2012 Medical oral tablet, form: ERTAB, [place] extended ONCE, Dosing release Weight 78.2, kg, Start date: 10/25/12 14:50:00, Stop date: 10/25/12 14:50:00 Procardia XL 30 mg, 1 tab, PO No Longer [place] [facility] Route: PO, Drug Active 2012 Medical form: ERTAB, Center ONCE, Dosing Weight 78.2, kg, Start date: 10/25/12 14:49:00, Stop date: 10/25/12 14:49:00 1/2 NS 1,000 mL 1,000 mL, Rate: IV No Longer [facility] 100 ml/hr, Active 2012 Medical Infuse over: 10 Center hr, Route: IV, kg, Total Volume: 1,000, Start date: 10/25/12 13:52:00, Duration: 30 day, Stop date: 11/24/12 13:51:00 atenolol 100 mg, 1 tab, PO No Longer [place] [facility] Route: PO, Drug Active 2012 Medical form: TAB, Center Daily, Dosing Weight 78.2, kg, Start date: 10/25/12 9:00:00, Duration: 30 day, Stop date: 11/23/12 9:00:00 Protonix 40 mg, Route: IVP No Longer [facility] IVP, Drug form: Active 2012 Medical INJ, Daily, Center Dosing Weight 78.2, kg, Start date: 10/25/12 9:00:00, Duration: 30 day, Stop date: 11/23/12 9:00:00 NovoLog FlexPen 6 unit, 0.06 mL, SUB-Q No Longer Amari [facility] Route: SUB-Q, 2012 Medical Drug form: SOLN, Center TID-Before Meals, Start date: 10/25/12 7:30:00, Duration: 30 day, Stop date: 11/23/12 16:30:00 insulin lispro 6 unit, Route: SUB-Q No Longer Funez [facility] SUB-Q, 2012 Medical TID-Before Center Meals, Dosing Weight 78.2, kg, Start date: 10/25/12 7:30:00, Duration: 30 day, Stop date: 11/23/12 16:30:00 Lactated 1,000 mL, Rate: [facility] Ringers IV 250 ml/hr, Active 2012 Medical 1,000 mL Infuse over: 4 Center hr, Route: IV, kg, Total Volume: 1,000, Start date: 10/25/12 5:50:00, Duration: 30 day, Stop date: 11/24/12 5:49:00 Lactated 1,000 mL, Rate: IV [facility] Long[facility] Ringers (Bolus) 100 ml/hr, Active 2012 Medical IV 1,000 mL Infuse over: 10 Center hr, Route: IV, kg, Total Volume: 1,000, Start date: 10/25/12 5:50:00, Duration: 1 doses or times, Stop date: 10/25/12 15:49:00 insulin aspart 9 unit, 0.09 mL, SUB-Q No Longer Manlapaz [facility] Route: SUB-Q, Active 2012 Medical Drug form: SOLN, Center TID-Before Meals, Dosing Weight 78.2, kg, PRN Blood Glucose Results, Start date: 10/25/12 3:53:00, Duration: 30 day, Stop date: 11/24/12 3:52:00 glucagon 1 mg, Route: IM, IM No Longer Funez [facility] Drug form: Active 2012 Medical PDR/INJ, PRN, Center Dosing Weight 78.2, kg, PRN Blood Glucose Results, Start date: 10/25/12 3:53:00, Duration: 30 day, Stop date: 11/24/12 4:52:00 Dextrose 50% 12.5 gm, 25 mL, IVP No Longer Funez [facility] 10/25[facility] Syringe Route: IVP, Drug Active 2012 Medical Form: INJ, Center Dosing Weight 78.2, kg, PRN, PRN Blood Glucose Results, Start date: 10/25/12 3:53:00, Duration: 30 day, Stop date: 11/24/12 4:52:00 Dextrose 50% 25 mL, Route: IVP No Longer Funez [facility] 10/25[facility] Syringe IVP, Dosing Active 2012 Medical Weight 78.2, kg, Center PRN, PRN Blood Glucose Results, Start date: 10/25/12 3:52:00, Duration: 30 day, Stop date: 11/24/12 4:51:00 glucagon 1 mg, Route: IM, IM No Longer Funez [facility] 10/25[facility] PRN, Dosing Active 2012 Medical Weight 78.2, kg, Center PRN Blood Glucose Results, Start date: 10/25/12 3:52:00, Duration: 30 day, Stop date: 11/24/12 4:51:00 Neutra-Phos 2 pkt, Route: PO No Longer Neeru [facility] PO, Drug Form: Active 2012 Medical [...] 100 mL, IVPB No Longer Funez Danay [facility] chloride Route: IVPB, Active 2012 Medical [...] mg, 1 tab, PO [facility] Long[facility] Route: PO, Drug Active 2012 Medical form: TAB, ONCE, Center Dosing Weight 78.2, kg, Start date: 10/24/12 15:03:00, Stop date: 10/24/12 15:03:00 NIFEdipine 60 mg, 1 tab, PO No Longer [facility] extended Route: PO, Drug Active 2012 [...] mL, Rate: IV No Longer [facility] [place] (Bolus) 100 ml/hr, Active [...] mg, 1 tab, PO No Longer [facility] Route: PO, Drug [...] mg, 1 tab, PO No Longer [facility] Route: PO, Drug Active 2012 Medical form: TAB, Center Daily, Dosing Weight 78.2, kg, Priority: NOW, Start date: 10/24/12 10:53:00, Duration: 30 day, Stop date: 11/23/12 9:00:00 potassium 40 mEq, 2 tab, PO No Longer [facility] chloride Route: PO, Drug Active [...] 24 hr aspirin 200 mg, 1 supp, [place] No Longer Orozco [facility] Route: [place], Drug Active 2012 Medical form: SUPP, Center [...] Duration: 1 doses or times, Dose=2.2ml/kg, Max [id number] -- "To be infused by Radiology Staff ONLY"Dose=2.2ml/ kg, Max [id number] -- "To be infused by Radiology Staff [...] Duration: 1 doses or times, Dose=2.2ml/kg, Max [id number] -- "To be infused by Radiology Staff ONLY"Dose=2.2ml/ kg, Max [id number] -- "To be infused by Radiology Staff ONLY" Insulin 100 mL, Rate: IV No Longer [place] [facility] (regular) 0.1units/kg/hour Active 2012 Medical Titrate [...] 1,000 mL, Rate: IV No Longer Isaac [facility] 0.9% IV 1,000 100 ml/hr, Active 2012 Medical mL + M.V.I.-12 Infuse over: Center 10 mL Daily + 10.1 hr, Route: folic acid IV 1 IV, kg, Total mg Daily + Volume: 1,011.2, thiamine IV 1 Start date: 10/23/12 8:41:00, Duration: 3 day, Stop date: 10/26/12 8:40:00 Insulin regular 100 mL, Rate: IVPB No Longer Isaac [facility] 100 unit + Start Insulin Active [...] gm, 50 mL, IVP No Longer [place] Syringe Route: IVP, Drug Active 2012 Medical Form: INJ, Center Dosing Weight 113.636, kg, PRN, PRN Blood Glucose Results, Start date: 10/23/12 8:17:00, Duration: 30 day, Stop date: 11/22/12 9:16:00 normal saline 1,000 mL, Rate: IV No Longer Isaac [place] 0.9% IV 1,000 150 ml/hr, Active 2012 Medical mL Infuse over: 6.7 Center hr, Route: IV, kg, Total Volume: 1,000, Start date: 10/23/12 5:07:00, Duration: 30 day, Stop date: 11/22/12 5:06:00 NS (Bolus) IV 1,000 mL, 0 IV No Longer Kristy [facility] ml/hr, Route: Active 2012 Medical IV, Drug Form: Center INJ, Dosing Weight 113.636, kg, ONCE, STAT, Start date: 10/23/12 5:06:00, Duration: 1 doses or times, Stop date: 10/23/12 5:06:00 hydrALAZINE 10 mg, 0.5 mL, IV No Longer Funez Kamel [facility] Route: IV, Drug Active 2012 Medical form: INJ, Q4H, Center Dosing Weight 113.636, kg, PRN Other -See Comment, Start date: 10/23/12 0:38:00, Duration: 30 day, Stop date: 11/22/12 0:37:00, hypertesnion acetaminophen 650 mg, 1 supp, [place] No Longer Kristy [place] Route: [place], Drug Active 2012 Medical form: SUPP, Q6H, Center Dosing Weight 113.636, kg, PRN Fever, Start date: 10/23/12 0:37:00, Duration: 30 day, Stop date: 11/22/12 0:36:00 Dilaudid 0.5 mg, 0.25 mL, IV No Longer [place] Route: IV, Drug Active 2012 Medical form: INJ, Q2H, Center Dosing Weight 113.636, kg, PRN Pain, Start date: 10/23/12 0:37:00, Duration: 30 day, Stop date: 11/22/12 0:36:00 metoprolol 5 5 mg, 5 mL, IVP No Longer Funez [facility] mg/5 ml INJ Route: IVP, Drug Active 2012 Medical form: INJ, Q3H, Center Dosing Weight 113.636, kg, PRN Hypertension, Start date: 10/23/12 0:35:00, Duration: 30 day, Stop date: 11/22/12 0:34:00 Insulin regular 2 unit, 0.02 mL, SUB-Q No Longer Isaac [facility] Route: SUB-Q, Active 2012 Medical Drug form: SOLN, Center Sliding Scale, Dosing Weight 113.636, kg, PRN Blood Glucose Results, Start date: 10/23/12 0:26:00, Duration: 30 day, Stop date: 11/22/12 1:25:00 glucagon 1 mg, Route: IM, IM No Longer Isaac [place] Drug form: Active 2012 Medical PDR/INJ, PRN, Center Dosing Weight 113.636, kg, PRN Blood Glucose Results, Start date: 10/23/12 0:26:00, Duration: 30 day, Stop date: 11/22/12 1:25:00 Dextrose 50% 25 gm, 50 mL, IVP No Longer Isaac [place] Syringe Route: IVP, Drug Active 2012 Medical [...] heparin 5,000 unit, SUB-Q No Longer Brian [place] Route: SUB-Q, Active 2012 Medical Q8H, Dosing Center Weight 113.636, kg, Start date: 10/23/12 0:00:00, Duration: 30 day, Stop date: 11/21/12 16:00:00 carvedilol 25 Daily, No Longer [place] mg oral tablet Substitution Active 2012 Medical Allowed Center Diovan HCT 160 1 tab, PO, PO No Longer [place] mg-12.5 mg oral Daily, 30 tab, Active [...] Duration: 7 day, Stop date: 10/14/12 9:00:00 [place] 325 mg-10 15 mL, Route: PO No Longer Sushila Fei mg / 15 mL oral PO, Drug Form: Active 2012 Medical solution SOLN, Dosing Center Weight 118.2, kg, Q4H, PRN For Pain, Start date: 10/07/12 14:22:00, Duration: 30 day, Stop date: 11/06/12 14:21:00 Diovan 160 mg, 1 tab, PO No Longer Sushila [facility] Route: PO, Drug Active 2012 Medical form: TAB, Center Daily, Dosing Weight 118.2, kg, Start date: 10/07/12 14:00:00, Duration: 30 day, Stop date: 11/06/12 9:00:00 Coreg 25 mg, 1 tab, PO No Longer Sushila [facility] Route: PO, Drug Active 2012 Medical form: TAB, Q12H, Center Dosing Weight 118.2, kg, Start date: 10/07/12 14:00:00, Duration: 30 day, Stop date: 11/06/12 9:00:00 potassium 20 mEq, 100 mL, IVPB No Longer Bagshahi [facility] chloride Route: IVPB, Active 2012 Medical Drug form: INJ, Center ONCE, Dosing Weight 118.2, kg, Total dose=20 mEq, Start date: 10/07/12 7:53:00, Duration: 1 doses or times, Stop date: 10/07/12 7:53:00, For K=3.5 - 3.9 mEq/LFor K=3.5 - 3.9 mEq/L Blistex 1 appl, Route: TOP No Longer [facility] Fei TOP, PRN, Drug Active 2012 Medical form: STIC PRN Center Other -See Comment, Start date: 10/06/12 22:48:00, Duration: 30 day, Stop date: 11/05/12 22:47:00 Blistex Lip Route: TOP, TOP No Longer [facility] Fei [place] Dosing Weight Active 2012 Medical 118.2, kg, PRN, Center PRN, Start date: 10/06/12 22:46:00, Duration: 30 day, Stop date: 11/05/12 22:45:00, prn Dilaudid 0.2 mg, 0.1 mL, IV No Longer Sushila [facility] Route: IV, Drug Active 2012 Medical form: INJ, Q4H, Center Dosing Weight 118.2, kg, PRN Pain, Start date: 10/06/12 14:47:00, Duration: 30 day, Stop date: 11/05/12 14:46:00 Zofran 4 mg, 2 mL, IV No Longer Low [place] Route: IV, Drug Active 2012 Medical form: INJ, Q4H, Center Dosing Weight 118.2, kg, PRN Nausea, Start date: 10/06/12 14:47:00, Duration: 30 day, Stop date: 11/05/12 14:46:00 metoprolol 5 5 mg, 5 mL, IVP No Longer Sushila [place] mg/5 ml INJ Route: IVP, Drug Active 2012 Medical form: INJ, Q6H, Center Dosing Weight 118.2, kg, Start date: 10/06/12 12:00:00, Duration: 30 day, Stop date: 11/05/12 6:00:00 magnesium 2 gm, 50 mL, IVPB No Longer Low [place] sulfate Route: IVPB, Active 2012 Medical Drug form: INJ, Center Q2H, Dosing Weight 118.2, kg, Total dose=4 gm, Start date: 10/06/12 12:00:00, Duration: 2 doses or times, Stop date: 10/06/12 14:00:00 dexamethasone 4 mg, 1 mL, IV No Longer Sushila [place] Route: IV, Drug Active 2012 Medical form: INJ, ONCE, Center Start date: 10/06/12 9:00:00, Stop date: 10/06/12 9:00:00 acetaminophen-h 30 mL, Route: PO No Longer Sushila [place] ydrocodone 325 PO, Drug Form: 2012 Medical mg-10 mg/15 mL SOLN, Q4H, PRN Center oral solution Pain, Start date: 10/06/12 7:33:00, Duration: 30 day, Stop date: 11/05/12 7:32:00 morphine 2 mg, 1 mL, IVP No Longer Low [place] Sulfate Route: IVP, Drug Active 2012 Medical form: INJ, Q2H, Center Dosing Weight 118.2, kg, PRN Pain, Start date: 10/05/12 23:45:00, Duration: 30 day, Stop date: 11/04/12 23:44:00 Levemir FlexPen 20 unit, 0.2 mL, SUB-Q No Longer Sushila [facility] Route: SUB-Q, Active 2012 Medical Drug form: INJ, Center Q12H, Start date: 10/05/12 21:00:00, Duration: 30 day, Stop date: 11/04/12 9:00:00 carvedilol 25 mg, 1 tab, PO No Longer Sushila Fei Route: PO, Drug Active 2012 Medical form: TAB, Q12H, Center Dosing Weight 118.2, kg, Start date: 10/04/12 21:00:00, Duration: 30 day, Stop date: 11/03/12 9:00:00 Payne 325 mg-10 30 mL, Route: PO No [...] mg, 2 mL, IVP No Longer Low [facility] Route: IVP, Drug Active 2012 Medical form: INJ, Q4H, Center PRN Elevated BP, Start date: 10/04/12 9:05:00, Duration: 30 day, Stop date: 11/03/12 9:04:00 hydrALAZINE 20 mg, 1 mL, IVP No Longer Low [facility] Route: IVP, Drug Active 2012 Medical [...] regular 12 unit, 0.12 SUB-Q No Longer Vandaliason Fei mL, Route: Active 2012 Medical SUB-Q, [...] 1 mg, Route: IM, IM No Longer [facility] Drug form: Active 2012 Medical PDR/INJ, PRN, [place] Dosing Weight 118.2, kg, PRN Blood Glucose Results, Start date: 10/04/12 0:40:00, Duration: 30 day, Stop date: 11/03/12 0:39:00 Ofirmev 1,000 mg, 100 IV No Longer [facility] mL, Route: IV, Active 2012 Medical Drug form: INJ, Center Q6H, Start date: 10/03/12 18:00:00, Duration: 4 doses or times, Stop date: 10/04/12 12:00:00 Mefoxin 2 gm, Route: IVPB No Longer [facility] IVPB, Drug form: Active 2012 Medical INJ, ABXQ8H, [place] Start date: 10/03/12 16:00:00, Duration: 2 doses or times, Stop date: 10/04/12 0:00:00 Lopressor 5 mg, 5 mL, IV No Longer Low [facility] Route: IV, Drug Active 2012 Medical form: INJ, Q6H, Center Start date: 10/03/12 16:00:00, Duration: 30 day, Stop date: 11/02/12 10:00:00 Humulin R 100 10 unit, 0.1 mL, SUB-Q No Longer [facility] units/mL Route: SUB-Q, Active 2012 Medical [facility] TID-Before Meals, PRN Blood Glucose Results, Start date: 10/03/12 14:30:00, Duration: 30 day, Stop date: 11/02/12 14:29:00 Dextrose 50% in 50 mL, Route: IV No Longer [facility] Water IV IV, Start date: Active 2012 Medical 10/03/12 [place] 14:29:00, Duration: 30 day, Stop date: 11/02/12 14:28:00, PRN Blood Glucose Results Dextrose 50% in 25 mL, Route: IVP No Longer [facility] 10/03[facility] [place] IV IVP, Start date: Active 2012 Medical 10/03/12 [place] 14:28:00, Duration: 30 day, Stop date: 11/02/12 14:27:00, PRN Blood Glucose Results Zofran 4 mg, 2 mL, IVP No Longer Low [place] Route: IVP, Drug Active 2012 Medical form: INJ, Q8H, Center PRN Nausea, Start date: 10/03/12 14:22:00, Duration: 30 day, Stop date: 11/02/12 14:21:00 naloxone 0.2 mg, 0.5 mL, IV No Longer Bagshi [place] Route: IV, Drug Active 2012 Medical form: INJ, PRN, Center PRN Narcotic Reversal, Start date: 10/03/12 14:21:00, Duration: 30 day, Stop date: 11/02/12 14:20:00 hydromorphone IV, Start date: IV No Longer Low [place] 15 mg 10/03/122012 Medical 14:19:00, Center Duration: 30, 30 ml, 118.2 Phenergan 12.5 mg, 0.5 mL, IVPB [facility] [place] Route: IVPB, Active 2012 Medical Drug form: INJ, Center Q4H, PRN Nausea, Start date: 10/03/12 14:08:00, Duration: 30 day, Stop date: 11/02/12 14:07:00 Phenergan 12.5 mg, 0.5 mL, IM No Longer [facility] [place] Route: IM, Drug Active 2012 Medical form: INJ, Q4H, Center PRN Nausea, Start date: 10/03/12 14:07:00, Duration: 30 day, Stop date: 11/02/12 14:06:00 Benadryl 25 mg, 0.5 mL, IM No Longer Sushila [place] Route: IM, Drug Active 2012 Medical form: INJ, Center Bedtime, PRN Insomnia, Start date: 10/03/12 14:04:00, Duration: 30 day, Stop date: 11/02/12 14:03:00 Lactated 1,000 mL, Rate: IV No Longer [place] Ring[place] 125 ml/hr, Active 2012 Medical Injection IV Infuse over: 8 Center 1,000 mL hr, Route: IV, kg, Total Volume: 1,000, Start date: 10/03/12 14:00:00, Duration: 30 day, Stop date: 11/02/12 13:59:00 ondansetron 4 mg, 2 mL, IVP No Longer Jose [facility] Route: IVP, Drug Active 2012 Medical [...] mg, 0.25 mL, IVP No Longer Jose [facility] Route: IVP, Drug Active 2012 Medical [...] 2 gm, Route: IVPB No Longer Sushila [place] IVPB, Drug form: Active 2012 Medical INJ, PRE OP, Center Priority: STAT, Start date: 10/03/12 5:50:00, Duration: 1 day, Stop date: 10/04/12 5:49:00 Mobic 15 mg 10 mg, PO, PO Active [place] oral tablet Daily, 30 tab, 2012 Medical Substitution Center Allowed, TAB Zetia Daily, Active [facility] Substitution 2011 Medical Allowed Center Klor-Con 10 10 mEq, 1 tab, PO Active [facility] oral tablet, PO, Daily, 180 2011 Medical extended tab, Center release Substitution Allowed, ERTAB ferrous 324 mg, 1 tab, PO Active [facility] gluconate 324 PO, Daily, 100 2011 Medical mg oral tablet tab, Center Substitution Allowed, TAB Lasix 40 mg 40 mg, 1 tab, PO Active [facility] oral tablet PO, Daily, 30 2011 Medical tab, Center Substitution Allowed, TAB Cymbalta 60 mg 60 mg, 1 cap, PO Active [facility] oral delayed PO, BID, 30 cap, [...] mg 150 mg, 1 cap, PO Active [facility] oral capsule PO, BID, 90 cap, [...] Medical Substitution Center Allowed NovoLog Substitution Active [facility] Allowed 2011 [facility] Levemir FlexPen Substitution Active [facility] Allowed 2011 [facility] Allergies, Adverse Reactions, Alerts Substance Category Reaction Severity Reaction Status Date Comments Source type Reported Immunizations Immunization Date Given Site Status Last Updated Comments Source influenza virus 07/14/2013 completed Diony [facility] vaccine, [facility] inactivated Center pneumococcal 07/14/2013 completed Diony [facility] 23-valent vaccine [facility] Center Results Order Name Results Value Reference Date Interpretation Comments Source Range CHEMISTRY U Preg Negative Negative 08/13 Normal [facility] (08/13/2013 13:30:00) [place] URINALYSIS UA RBC 0-2 /HPF 0 - 2 08/13 Normal [facility] URINALYSIS UA WBC 3-5 /HPF None Seen 08/13 Normal [facility] URINALYSIS UA Sq Epi Few /LPF Few 08/13 Normal [facility] URINALYSIS Micro? Performed 08/13 Normal [facility] (08/13/2013 13:30:00) Center URINALYSIS UA Hyal Cast 0-2 0 - 2 08/13 Normal [facility] (08/13/2013 13:30:00) Center URINALYSIS UA Glucose 250 mg/dL Negative 08/13 [facility] URINALYSIS UA Blood Negative Negative 08/13 Normal [facility] (08/13/2013 13:30:00) Center URINALYSIS UA Ketones >=80 mg/dL Negative 08/13 [facility] URINALYSIS UA 0.2 EU/dL 0.1 - 1.0 08/13 Normal [facility] Urobilinogen /2012 [facility] URINALYSIS UA Nitrite Negative Negative 08/13 Normal Medical (08/13/2013 13:30:00) [place] URINALYSIS UA Bili Small 1 Negative 08/13 ABN 1Result Comment: Interpret positive bilirubin results with caution. Confirmatory testing not possible due to the unavailability of reagent. Correlation with Medical *ABN* serum chemistry results recommended. [place] (08/13/2013 13:30:00) URINALYSIS UA Leuk Est Negative Negative 08/13 Normal [facility] (08/13/2013 13:30:00) [place] URINALYSIS UA Protein Negative Negative 08/13 Normal [facility] (08/13/2013 13:30:00) [place] URINALYSIS UA pH 6.0 5.0 - 8.0 08/13 Normal [facility] URINALYSIS UA Spec Grav 1.020 <=1.030 08/13 Normal [facility] URINALYSIS UA Color Yellow Yellow 08/13 Medical *NA* [place] (08/13/2013 13:30:00) URINALYSIS UA Turbidity Clear Clear 08/13 Normal [facility] (08/13/2013 13:30:00) [place] CHEMISTRY BE Mark 1 mMol/L -2-2 - 2 08/13 Normal [facility] CHEMISTRY pO2 Mark 29 mm[Hg] 20 - 49 08/13 Normal [facility] CHEMISTRY O2 Sat Mark 55.9 % 40.0 - 08/13 Normal [facility] 70.0 [facility] CHEMISTRY Temp Mark 37.0 Abby 08/13 [facility] CHEMISTRY HCO3 Mark 26 mMol/L 22 - 26 08/13 Normal [facility] CHEMISTRY pCO2 Mark 41 mm[Hg] 38 - 52 08/13 Normal [facility] CHEMISTRY pH Mark 7.41 7.28 - 08/13 Normal [facility] 7.42 [facility] CHEMISTRY eGFR 60 08/13 2Result Comment: The eGFR is calculated using the CKD-EPI formula. In most young, healthy individuals the eGFR will be >90 mL/ min/1.73m2. The eGFR declines with age. An eGFR of 60-89 may be normal in [facility] mL/min/1. some populations, particularly the elderly, for whom the CKD-EPI formula has not been extensively validated. Use of the eGFR is not recommended in the following populations: Medical [address] [place] [address] Individuals with unstable creatinine concentrations, including patients [...] 25 meq/L 24 - 32 08/13 Normal [facility] CHEMISTRY Chloride Lvl 98 meq/L 95 - 109 08/13 Normal [facility] CHEMISTRY BUN 9 mg/dL 7 - 22 08/13 Normal [facility] CHEMISTRY Calcium Lvl 9.1 mg/dL 8.5 - 10.5 08/13 Normal [facility] CHEMISTRY Glucose Lvl 301 mg/dL 70 - 99 08/13 [place] 3Interpretive Data: Adult reference range values reflect the clinical guidelines of the [place] [employer]. [facility] CHEMISTRY Potassium Lvl 3.8 meq/L 3.5 - 5.1 08/13 Normal [facility] CHEMISTRY Sodium Lvl 134 meq/L 135 - 145 08/13 LOW [facility] CHEMISTRY Creatinine 1.1 mg/dL 0.5 - 1.4 08/13 Normal [facility] CHEMISTRY Bili Total 0.6 mg/dL 0.2 - 1.3 08/13 Normal [facility] CHEMISTRY ASPARTATE 17 unit/L 0 - 37 08/13 Normal [facility] TRANSAMINASE [facility] CHEMISTRY ALANINE 22 unit/L 0 - 65 08/13 Normal [facility] AMINOTRANSFER [facility] Center CHEMISTRY Albumin Lvl 3.5 g/dL 3.5 - 5.0 08/13 Normal [facility] CHEMISTRY Alk Phos 130 unit/L 39 - 136 08/13 Normal [facility] CHEMISTRY Total Protein 7.8 g/dL 6.4 - 8.4 08/13 Normal [facility] CHEMISTRY B/C Ratio 8 6 - 25 08/13 Normal [facility] CHEMISTRY AGAP 14.8 meq/L 10.0 - 12 Normal [facility] 20.0 [facility] CHEMISTRY Globulin 4.3 g/dL 2.0 - 4.0 08/13 [place] [facility] CHEMISTRY A/G Ratio 0.8 0.7 - 1.6 12 Normal [facility] HEMATOLOGY Monocytes # 0.8 K/CMM 0.0 - 0.8 08/13 Normal [facility] HEMATOLOGY Eosinophils # 0.0 K/CMM 0.0 - 0.5 08/13 Normal [facility] HEMATOLOGY Basophils # 0.0 K/CMM 0.0 - 0.2 08/13 Normal [facility] HEMATOLOGY Basophils 0.1 % 0.0 - 1.0 08/13 Normal [facility] HEMATOLOGY Lymphocytes # 1.4 K/CMM 1.0 - 5.5 08/13 Normal [facility] HEMATOLOGY Segs-Bands # 10.5 K/CMM 1.5 - 8.1 08/13 [facility] HEMATOLOGY Monocytes 6.3 % 2.0 - 12.0 08/13 Normal [facility] HEMATOLOGY Eosinophils 0.2 % 0.0 - 4.0 08/13 Normal [facility] HEMATOLOGY Lymphocytes 11.3 % 20.0 - 12 LOW [facility] 40.0 /2012 [facility] HEMATOLOGY Segs 82.1 % 45.0 - 12 [facility] 75.0 [facility] HEMATOLOGY WBC X 10x3 12.7 K/CMM 3.7 - 10.4 08/13 [facility] HEMATOLOGY Hct 37.0 % 36.0 - 12/08 Normal [facility] 48.0 [facility] HEMATOLOGY RBC X 10x6 4.36 M/CMM 4.20 - 1208 Normal [facility] 5.40 /2012 [facility] HEMATOLOGY Hgb 12.6 g/dL 12.0 - 1208 Normal [facility] 16.0 /2012 [facility] HEMATOLOGY MCV 84.8 fL 81.0 - 1208 Normal [facility] 99.0 [facility] HEMATOLOGY MCH 28.8 pg 27.0 - 12 Normal [facility] 31.0 [facility] HEMATOLOGY MCHC 34.0 g/dL 32.0 - 12 Normal [facility] 36.0 [facility] HEMATOLOGY Platelet 238 K/CMM 133 - 450 12 [facility] HEMATOLOGY MPV 9.5 fL 7.4 - 10.4 12 [facility] HEMATOLOGY RDW 13.1 % 11.5 - 08/13 Normal [facility] 14.5 Medical Center BEDSIDE Gluc POC Notify 07/26 [facility] GLUCOSE Comment 1 RN/ /2013 Medical TESTING Center BEDSIDE Glucose POC 274 mg/dL 70 - 99 07/26 [place] 1Interpretive [facility] GLUCOSE Data: Medical TESTING Center Upper Reportable Limit: 200 mg/dL. BEDSIDE Glucose POC 146 mg/dL 70 - 99 07/15 [place] 2Interpretive [facility] GLUCOSE Data: Medical TESTING Center Upper Reportable Limit: 200 mg/dL. BEDSIDE Gluc POC Notify 07/15 [facility] GLUCOSE Comment 1 RN/MD /2012 Medical TESTING Center BEDSIDE Glucose POC 140 mg/dL 70 - 99 07/14 [place] 3Interpretive [facility] GLUCOSE Data: Medical TESTING Center Upper Reportable Limit: 200 mg/dL. BEDSIDE Gluc POC Notify 07/14 [facility] GLUCOSE Comment 1 RN/ 2013 [facility] TESTING Center BEDSIDE Gluc POC Notify 07/14 [facility] GLUCOSE Comment 1 RN/ /2013 Medical TESTING Center BEDSIDE Glucose POC 44 mg/dL 70 - 99 07/14 LOW 4Interpretive [facility] Data: Medical TESTING Center Upper Reportable Limit: 200 mg/dL. IMMUNOLOGY [place]-HIV Negative Negative 07/14 [facility] 09/07 [facility] *NA* Center (07/14/2013 00:27:00) IMMUNOLOGY [place]-Hep C Negative Negative 07/14 [facility] (07/14/2013 00:27:00) CHEMISTRY eGFR 109 07/13 5Result Comment: The eGFR is calculated using the CKD-EPI formula. In most young, healthy individuals the eGFR will be >90 mL/ min/1.73m2. The eGFR declines with age. An eGFR of 60-89 may be normal in [facility] mL/min/1.7 some populations, particularly the elderly, [...] 135 meq/L 135 - 145 07/13 Normal [facility] CHEMISTRY Chloride Lvl 95 meq/L 95 - 109 07/13 Normal [facility] CHEMISTRY AGAP 16.5 meq/L 10.0 - 07/13 Normal [facility] 20.0 [facility] CHEMISTRY Glucose Lvl 322 mg/dL 70 - 99 07/13 [place] 8Interpretive Data: Adult reference range values reflect the clinical guidelines of the [place] [employer]. [facility] CHEMISTRY Creatinine 0.6 mg/dL 0.5 - 1.4 07/13 Normal [facility] CHEMISTRY BUN 6 mg/dL 7 - 22 07/13 LOW [facility]2012 [facility] CHEMISTRY Calcium Lvl 8.6 mg/dL 8.5 - 10.5 07/13 Normal [facility]2012 [facility] CHEMISTRY CO2 27 meq/L 24 - 32 07/13 Normal [facility] CHEMISTRY Potassium Lvl 3.5 meq/L 3.5 - 5.1 07/13 Normal [facility]2012 [facility] INFECTIOUS C difficile Negative 1 Negative 07/13 Normal 1Interpretive Data: [employer] Clostridium difficile assay utilizes loop-mediated isothermal DNA amplification (LAMP) technology to detect a 204 bp region of the tcdA gene within the PaLoc gene [facility] segment present in all known toxigenic C. difficile strains. [facility] (07/13/2013 00:00:59) [place] The assay utilizes FDA cleared IVD reagents. Performance characteristics have been verified by the [facility] within the [facility]. The [facility] is authorized under the Clinical Laboratory Improvement Amendment of 1988 (CLIA-88) to perform high complexity testing. CHEMISTRY Lactic Acid 1.9 mMol/L 0.5 - 2.2 07/12 Normal [facility] CHEMISTRY eGFR 88 07/12 6Result Comment: The eGFR is calculated using the CKD-EPI formula. In most young, healthy individuals the eGFR will be >90 mL/ min/1.73m2. The eGFR declines with age. An eGFR of 60-89 may be normal in [facility] mL/min/1. some populations, particularly the elderly, for whom the CKD-EPI formula has not been extensively validated. Use of the eGFR is not recommended in the following populations: [place] [address] Center Individuals with unstable creatinine concentrations, including [...] CHEMISTRY Troponin-I null 0.00 - 07/12 Normal [facility] 0.40 [facility] HEMATOLOGY Basophils # 0.0 K/CMM 0.0 - 0.2 07/12 Normal [facility] HEMATOLOGY Eosinophils # 0.3 K/CMM 0.0 - 0.5 07/12 Normal [facility] HEMATOLOGY Monocytes # 1.0 K/CMM 0.0 - 0.8 07/12 [place] [facility] HEMATOLOGY Lymphocytes # 3.0 K/CMM 1.0 - 5.5 07/12 Normal [facility] HEMATOLOGY Segs-Bands # 6.4 K/CMM 1.5 - 8.1 07/12 Normal [facility] HEMATOLOGY Basophils 0.4 % 0.0 - 1.0 07/12 Normal [facility] HEMATOLOGY Eosinophils 2.8 % 0.0 - 4.0 07/12 Normal [facility] HEMATOLOGY Plt Morph Normal 07/12 [facility] (07/12/2013 16:29:10) [place] HEMATOLOGY RBC Morph Normal 07/12 [facility] (07/12/2013 16:29:10) Center HEMATOLOGY Monocytes 9.4 % 2.0 - 12.0 07/12 Normal [facility] HEMATOLOGY Lymphocytes 27.9 % 20.0 - 07/12 Normal [place] 40.0 [facility] HEMATOLOGY Segs 59.5 % 45.0 - 07/12 Normal [facility] 75.0 [facility] HEMATOLOGY MCV 85.3 fL 81.0 - 07/12 [facility] 99.0 [facility] HEMATOLOGY Hct 41.2 % 36.0 - 07/12 Normal [place] 48.0 [facility] HEMATOLOGY Hgb 13.6 g/dL 12.0 - 07/12 Normal [facility] 16.0 [facility] HEMATOLOGY RBC X 10x6 4.84 M/CMM 4.20 - 07/12 Normal [facility] 5.40 /2012 Medical Center HEMATOLOGY MPV 9.4 fL 7.4 - 10.4 07/12 Normal Medical [place] HEMATOLOGY Platelet 225 K/CMM 133 - 450 07/12 Normal Medical [place] HEMATOLOGY MCH 28.1 pg 27.0 - 07/12 Normal [facility] 31.0 Medical Center HEMATOLOGY MCHC 33.0 g/dL 32.0 - 07/12 Normal [facility] 36.0 /2012 [facility] HEMATOLOGY RDW 12.7 % 11.5 - 07/12 Normal [facility] 14.5 Medical [place] HEMATOLOGY WBC X 10x3 10.7 K/CMM 3.7 - 10.4 07/12 [place] [facility] CHEMISTRY AGAP 12.4 meq/L 10.0 - 07/12 Normal [facility] . [facility] CHEMISTRY Calcium Lvl 8.8 mg/dL 8.5 - 10.5 07/12 Normal [facility] CHEMISTRY Chloride Lvl 102 meq/L 95 - 109 07/12 Normal [facility] CHEMISTRY Potassium Lvl 3.4 meq/L 3.5 - 5.1 07/12 LOW [facility] CHEMISTRY CO2 30 meq/L 24 - 32 07/12 Normal [facility] CHEMISTRY Sodium Lvl 141 meq/L 135 - 145 07/12 Normal [facility] CHEMISTRY Creatinine 0.8 mg/dL 0.5 - 1.4 07/12 Normal [facility] CHEMISTRY BUN 6 mg/dL 7 - 22 07/12 LOW [facility] CHEMISTRY Glucose Lvl 163 mg/dL 70 - 99 07/12 [place] 9Interpretive Data: Adult reference range values reflect the clinical guidelines of the [place] [employer]. Medical Center IMMUNOLOGY CDC-HIV 1/2 Negative Negative 07/12 Medical *NA* Center (07/12/2013 16:02:06) CHEMISTRY Calcium Lvl 8.4 mg/dL 8.5 - 10.5 07/12 LOW [facility] CHEMISTRY AGAP 10.4 meq/L 10.0 - 07/12 Normal [facility] CHEMISTRY eGFR 76 07/12 7Result Comment: The eGFR is calculated using the CKD-EPI formula. In most young, healthy individuals the eGFR will be >90 mL/ min/1.73m2. The eGFR declines with age. An eGFR of 60-89 may be normal in [facility] mL/min/1.7 some populations, particularly the elderly, for whom the CKD-EPI formula has not been extensively validated. Use of the eGFR is not recommended in the following populations: [address] Individuals with unstable creatinine concentrations, including [...] 140 meq/L 135 - 145 07/12 Normal [facility] CHEMISTRY Chloride Lvl 103 meq/L 95 - 109 07/12 Normal [facility] CHEMISTRY Potassium Lvl 3.4 meq/L 3.5 - 5.1 07/12 LOW [facility]2012 [facility] CHEMISTRY BUN 9 mg/dL 7 - 22 07/12 Normal [facility] CHEMISTRY Creatinine 0.9 mg/dL 0.5 - 1.4 07/12 Normal [facility] CHEMISTRY Glucose Lvl 296 mg/dL 70 - 99 07/12 [place] 10Interpretive Data: Adult reference range values reflect the clinical guidelines of the [place] [employer]. [facility] CHEMISTRY CO2 30 meq/L 24 - 32 07/12 Normal [facility] CHEMISTRY Troponin-I null 0.00 - 11 Normal [facility] 0.40 [facility] CHEMISTRY Lipase Lvl 76 unit/L 73 - 393 07/12 Normal [facility] CHEMISTRY B/C Ratio 11 6 - 25 07/12 Normal [facility] CHEMISTRY ASPARTATE 25 unit/L 0 - 37 07/12 Normal [facility] CHEMISTRY Bili Total 0.4 mg/dL 0.2 - 1.3 07/12 Normal [facility] CHEMISTRY Alk Phos 119 unit/L 39 - 136 07/12 Normal [facility] CHEMISTRY Albumin Lvl 3.9 g/dL 3.5 - 5.0 07/12 Normal [facility] CHEMISTRY ALANINE 29 unit/L 0 - 65 07/12 Normal [facility] AMINO [facility] CHEMISTRY Total Protein 8.1 g/dL 6.4 - 8.4 07/12 Normal [facility] CHEMISTRY Globulin 4.2 g/dL 2.0 - 4.0 07/12 HI [facility] CHEMISTRY A/G Ratio 0.9 0.7 - 1.6 07/12 Normal [facility] HEMATOLOGY Monocytes # 0.6 K/CMM 0.0 - 0.8 07/12 Normal [facility] HEMATOLOGY Segs-Bands # 9.5 K/CMM 1.5 - 8.1 07/12 HI [facility] HEMATOLOGY Eosinophils # 0.2 K/CMM 0.0 - 0.5 07/12 Normal [facility]2012 [facility] HEMATOLOGY Lymphocytes # 2.1 K/CMM 1.0 - 5.5 07/12 Normal [facility] HEMATOLOGY Basophils 0.2 % 0.0 - 1.0 07/12 Normal [facility] HEMATOLOGY Neut Vac Slight None Seen 07/12 ABN [facility] *ABN* [place] (07/12/2013 03:30:00) HEMATOLOGY Hypochrom Slight None Seen 07/12 Normal [facility] (07/12/2013 03:30:00) [place] HEMATOLOGY Basophils # 0.0 K/CMM 0.0 - 0.2 07/12 Normal [facility] HEMATOLOGY RBC Morph Normal 07/12 Normal [facility] (07/12/2013 03:30:00) [place] HEMATOLOGY Eosinophils 1.6 % 0.0 - 4.0 07/12 Normal [facility] HEMATOLOGY Monocytes 4.6 % 2.0 - 12.0 07/12 Normal [facility] HEMATOLOGY Segs 76.6 % 45.0 - 07/12 HI [facility] 75.0 [facility] HEMATOLOGY Lymphocytes 17.0 % 20.0 - 07/12 LOW [facility] 40.0 [facility] HEMATOLOGY Plt Morph Normal 07/12 Normal [facility] (07/12/2013 03:30:00) [place] HEMATOLOGY MCHC 32.4 g/dL 32.0 - 07/12 Normal [facility] 36.0 [facility] HEMATOLOGY MCH 27.4 pg 27.0 - 07/12 Normal [facility] 31.0 /2012 [facility] HEMATOLOGY RDW 12.7 % 11.5 - 07/12 Normal [facility] 14.5 /2012 [facility] HEMATOLOGY Platelet 235 K/CMM 133 - 450 07/12 Normal [facility] HEMATOLOGY MPV 9.4 fL 7.4 - 10.4 07/12 Normal [facility] HEMATOLOGY Hgb 12.9 g/dL 12.0 - 07/12 Normal [facility] 16.0 [facility] HEMATOLOGY MCV 84.3 fL 81.0 - 07/12 Normal [facility] 99.0 /2012 [facility] HEMATOLOGY Hct 39.6 % 36.0 - 07/12 Normal [facility] 48.0 [facility] HEMATOLOGY WBC X 10x3 12.4 K/CMM 3.7 - 10.4 07/12 HI [facility] HEMATOLOGY RBC X 10x6 4.70 M/CMM 4.20 - 07/12 Normal [facility] 5.40 /2012 [facility] CHEMISTRY U Preg Negative Negative 07/12 Normal [facility] (07/12/2013 03:00:00) Center URINALYSIS UA Leuk Est Negative Negative 07/12 Normal [facility] (07/12/2013 03:00:00) Center URINALYSIS UA 0.2 EU/dL 0.1 - 1.0 07/12 Normal [facility] Urobilinogen [facility] URINALYSIS UA Nitrite Negative Negative 07/12 Normal [facility] (07/12/2013 03:00:00) Center URINALYSIS UA Bili Negative Negative 07/12 [facility] *NA* Center (07/12/2013 03:00:00) URINALYSIS UA pH 6.0 5.0 - 8.0 07/12 Normal [facility] URINALYSIS UA Protein Negative Negative 07/12 Normal [facility] mg/dL [facility] URINALYSIS UA Glucose >=1000 Negative 07/12 ABN [facility] mg/dL [facility] URINALYSIS UA Ketones 15 mg/dL Negative 07/12 ABN [facility] URINALYSIS UA Spec Grav 1.020 <=1.030 07/12 Normal [facility] URINALYSIS UA Blood Negative Negative 07/12 Normal [facility] (07/12/2013 03:00:00) [place] URINALYSIS UA Color Yellow Yellow 07/12 [facility] Medical *NA* Center (07/12/2013 03:00:00) URINALYSIS UA Turbidity Clear Clear 07/12 Normal [facility] (07/12/2013 03:00:00) [place] URINALYSIS UA RBC 0-2 /HPF 0 - 2 07/12 Normal [facility] URINALYSIS UA WBC 3-5 /HPF None Seen 07/12 Normal [facility] URINALYSIS UA Sq Epi Many /LPF Few 07/12 ABN [facility]2012 [facility] URINALYSIS UA Bacteria Few /HPF None Seen 07/12 Normal [facility] URINALYSIS UA [place] Yeast Moderate None Seen 07/12 [facility] URINALYSIS Micro? Performed 07/12 Normal [facility] (07/12/2013 03:00:00) [place] Abdomen/Pel Abdomen/Pelvi EXAM: CT ABDOMEN WITH CONTRAST 07/12 - [facility] vis w s w contrast - Medical contrast CT CT EXAM: CT PELVIS WITH CONTRAST This report was dictated by a Territory Supervisor/Fellow. I have personally reviewed the images as [...] mg/dL 70 - 99 04/03 HI 1Interpretive [facility] GLUCOSE Lifscn /2012 Data: Medical TESTING Center Upper Reportable Limit: 200 mg/dL. BEDSIDE Comment2 Sliding 04/03 [facility] [place] GLUCOSE Scale /2012 [facility] BEDSIDE Comment1 Notify 04/03 NA [facility] GLUCOSE RN/MD /2012 [facility] BEDSIDE Comment1 Notify 04/03 [facility] GLUCOSE RN/MD /2012 [facility] BEDSIDE Gluc POC 198 mg/dL 70 - 99 04/03 HI 2Interpretive [facility] GLUCOSE Lifscn Data: [facility] [place] Upper Reportable Limit: 200 mg/dL. BEDSIDE Comment2 Sliding 04/03 NA [facility] GLUCOSE Scale [facility] TESTING [place] Abdomen 2 Abdomen 2 EXAM: XR ABDOMEN 1 VIEW 04/03 - [facility] views - Medical Center DATE: March 25 90,013. Read by: Carissa Cho Dictated Date/time: 04/03/13 18:42 Electronically Signed by: aCrissa Cho MD 04/03/13 18:44 FINAL REPORT INDICATION: [...] Cho MD. BEDSIDE Comment2 Sliding 04/03 NA [facility] GLUCOSE Scale /2012 [facility] TESTING [place] BEDSIDE Comment1 Notify 04/03 NA [facility] GLUCOSE RN/ /2012 [facility] TESTING Center BEDSIDE Gluc POC 182 mg/dL 70 - 99 04/03 HI 3Interpretive [facility] GLUCOSE Lifscn Data: [facility] [place] Upper Reportable Limit: 200 mg/dL. CHEMISTRY Troponin-T null 0.000 - 04/03 Normal [facility] 0.100 [facility] CHEMISTRY Troponin-I null 0.00 - 04/03 Normal [facility] 0.40 [facility] CHEMISTRY Total CK 41 unit/L 12 - 191 04/03 Normal [facility] CHEMISTRY Creatinine 0.6 mg/dL 0.5 - 1.4 04/03 Normal [facility] Lvl [facility] CHEMISTRY Sodium Lvl 137 meq/L 135 - 145 04/03 Normal [facility] CHEMISTRY CO2 25 meq/L 24 - 32 04/03 Normal [facility] CHEMISTRY Calcium Lvl 8.2 mg/dL 8.5 - 10.5 04/03 LOW [facility] CHEMISTRY AGAP 17.9 meq/L 10.0 - 04/03 Normal [facility] 20.0 [facility] CHEMISTRY Potassium Lvl 3.9 meq/L 3.5 - 5.1 04/03 Normal [facility] CHEMISTRY Chloride Lvl 98 meq/L 95 - 109 04/03 Normal [facility] CHEMISTRY Glucose Lvl 266 mg/dL 70 - 99 04/03 HI 6Interpretive Data: Adult reference range values reflect the clinical guidelines of the [place] [employer]. [facility] CHEMISTRY BUN 3 mg/dL 7 - 22 04/03 LOW [facility] CHEMISTRY eGFR 109 04/03 NA 4Result Comment: The eGFR is calculated using the CKD-EPI formula. In most young, healthy individuals the eGFR will be > 90 mL/min/1.73m2. The eGFR declines with age. An eGFR of 60-89 may be normal in [facility] mL/min/1.7 some populations, particularly the elderly, for whom the CKD-EPI formula has not been extensively validated. Use of the eGFR is not recommended in the following populations: [address] Individuals with unstable creatinine concentrations, including [...] HEMATOLOGY Hgb 10.5 g/dL 12.0 - 04/03 [facility] 16.0 [facility] HEMATOLOGY RBC 4.22 M/CMM 4.20 - 04/03 [facility] 5.40 /2012 [facility] HEMATOLOGY WBC 10.3 K/CMM 3.7 - 10.4 04/03 Normal [facility] HEMATOLOGY Hct 33.5 % 36.0 - 04/03 [facility] 48.0 [facility] HEMATOLOGY MPV 8.8 fL 7.4 - 10.4 04/03 Normal [facility] HEMATOLOGY Platelet 276 K/CMM 133 - 450 04/03 Normal [facility] HEMATOLOGY RDW 18.7 % 11.5 - 04/03 HI [facility] 14.5 [facility] HEMATOLOGY MCHC 31.2 g/dL 32.0 - 04/03 [facility] 36.0 [facility] HEMATOLOGY MCH 24.8 pg 27.0 - 04/03 [facility] 31.0 [facility] HEMATOLOGY MCV 79.5 fL 81.0 - 04/03 [facility] 99.0 [facility] HEMATOLOGY Segs 58.6 % 45.0 - 04/03 Normal 75.0 [facility] HEMATOLOGY Lymphocytes 29.9 % 20.0 - 04/03 Normal [place] 40.0 [facility] HEMATOLOGY Basophils 1.3 % 0.0 - 1.0 04/03 HI [facility] HEMATOLOGY Lymphocytes # 3.1 K/CMM 1.0 - 5.5 04/03 Normal [facility] HEMATOLOGY Segs-Bands # 6.0 K/CMM 1.5 - 8.1 04/03 Normal [facility] HEMATOLOGY Eosinophils 2.8 % 0.0 - 4.0 04/03 Normal [facility] HEMATOLOGY Eosinophils # 0.3 K/CMM 0.0 - 0.5 04/03 Normal [facility] HEMATOLOGY Monocytes # 0.8 K/CMM 0.0 - 0.8 04/03 Normal [facility] HEMATOLOGY Basophils # 0.1 K/CMM 0.0 - 0.2 04/03 Normal [facility] HEMATOLOGY Monocytes 7.4 % 2.0 - 12.0 04/03 Normal [facility] CHEMISTRY Troponin-I null 0.00 - 04/03 Normal 0. [facility] CHEMISTRY Total CK 51 unit/L 04/03 Normal [facility] CHEMISTRY Troponin-T null 0.000 - 04/03 Normal [place] 0.100 [facility] CHEMISTRY Bili Direct 0.1 mg/dL 0.0 - 0.3 04/03 Normal [facility] CHEMISTRY Bili Total 0.4 mg/dL 0.2 - 1.3 04/03 Normal [facility] CHEMISTRY Bili Indirect 0.3 mg/dL 0.0 - 1.0 04/03 Normal [facility] CHEMISTRY ALT 22 unit/L 0 - 65 04/03 Normal [facility] CHEMISTRY AST 31 unit/L 0 - 37 04/03 Normal [facility] CHEMISTRY Lipase Lvl 54 unit/L 73 - 393 04/03 LOW [facility] CHEMISTRY Troponin-I null 0.00 - 04/02 Normal [place] 0.40 [facility] CHEMISTRY Total CK 24 unit/L 12 - 04/02 Normal [facility] CHEMISTRY AGAP 17.5 meq/L 10.0 - 04/02 Normal [facility] 20. [facility] CHEMISTRY eGFR 88 04/02 NA 5Result Comment: The eGFR is calculated using the CKD-EPI formula. In most young, healthy individuals the eGFR will be > 90 mL/min/1.73m2. The eGFR declines with age. An eGFR of 60-89 may be normal in [facility] mL/min/1.7 some populations, particularly the elderly, for whom the CKD-EPI formula has not been extensively validated. Use of the eGFR is not recommended in the following populations: [address] Individuals with unstable creatinine concentrations, including [...] 0.8 mg/dL 0.5 - 1.4 04/02 Normal [facility] Lvl [facility] CHEMISTRY Potassium Lvl 3.5 meq/L 3.5 - 5.1 04/02 Normal [facility] CHEMISTRY Chloride Lvl 97 meq/L 95 - 109 04/02 Normal [facility] CHEMISTRY Glucose Lvl 163 mg/dL 70 - 99 04/02 HI 7Interpretive Data: Adult reference range values reflect the clinical guidelines of the [place] [employer]. [facility] CHEMISTRY BUN 2 mg/dL 7 - 22 04/02 LOW [facility] CHEMISTRY Sodium Lvl 136 meq/L 135 - 145 04/02 Normal [facility] CHEMISTRY Calcium Lvl 8.6 mg/dL 8.5 - 10.5 04/02 Normal [facility] CHEMISTRY CO2 25 meq/L 24 - 32 04/02 Normal [facility] HEMATOLOGY Platelet 378 K/CMM 133 - 450 04/02 Normal [facility] HEMATOLOGY MCHC 33.4 g/dL 32.0 - 04/02 Normal [facility] 36. [facility] HEMATOLOGY RDW 17.3 % 11.5 - 04/02 HI [facility] 14.5 [facility] HEMATOLOGY MCV 76.0 fL 81.0 - 04/02 [facility] 99.0 /2012 [facility] HEMATOLOGY MCH 25.4 pg 27.0 - 04/02 [facility] 31.0 /2012 [facility] HEMATOLOGY Hct 34.2 % 36.0 - 04/02 [facility] 48.0 [facility] HEMATOLOGY RBC 4.50 M/CMM 4.20 - 04/02 Normal [facility] 5.40 /2012 [facility] HEMATOLOGY Hgb 11.4 g/dL 12.0 - 04/02 [facility] 16.0 [facility] HEMATOLOGY WBC 9.0 K/CMM 3.7 - 10.4 04/02 Normal [facility] HEMATOLOGY MPV 8.4 fL 7.4 - 10.4 04/02 Normal [facility] HEMATOLOGY Microcyte 2+ None Seen 04/02 ABN [facility]* Center (04/02/2013 17:09:00) HEMATOLOGY Basophils # 0.1 K/CMM 0.0 - 0.2 04/02 Normal [facility] HEMATOLOGY Eosinophils # 0.1 K/CMM 0.0 - 0.5 04/02 Normal [facility] HEMATOLOGY Monocytes # 0.7 K/CMM 0.0 - 0.8 04/02 Normal [facility] HEMATOLOGY Lymphocytes # 1.4 K/CMM 1.0 - 5.5 04/02 Normal [facility] HEMATOLOGY Segs-Bands # 6.7 K/CMM 1.5 - 8.1 04/02 Normal [facility] HEMATOLOGY Basophils 1.3 % 0.0 - 1.0 04/02 HI [facility] HEMATOLOGY Lymphocytes 15.2 % 20.0 - 04/02 [facility] 40.0 [facility] HEMATOLOGY Segs 74.3 % 45.0 - 04/02 [facility] 75.0 [facility] HEMATOLOGY Eosinophils 1.6 % 0.0 - 4.0 04/02 Normal [facility] HEMATOLOGY Monocytes 7.6 % 2.0 - 12.0 04/02 [facility] Chest 1view Chest 1view EXAM: XR CHEST 1 VIEW 04/02 - - [facility] Center DATE: 2013-04-02 1638 hours [...] mg/dL 70 - 99 03/09 [place] 1Interpretive [facility] GLUCOSE Lifsc[employer] Data: [facility] Center Upper Reportable Limit: 200 mg/dL. BEDSIDE Comment1 Notify 03/09 NA [facility] GLUCOSE RN/ Medical [facility] Center CHEMISTRY eGFR 88 03/09 NA 4Result Comment: The eGFR is calculated using the CKD-EPI formula. In most young, healthy individuals the eGFR will be > 90 mL/min/1.73m2. The eGFR declines with age. An eGFR of 60-89 may be normal in [facility] mL/min/1.7 some populations, particularly the elderly, for whom the CKD-EPI formula has not been extensively validated. Use of the eGFR is not recommended in the following populations: [place] [address] Center Individuals with unstable creatinine concentrations, including [...] 7 mg/dL 7 - 22 03/09 Normal [facility] CHEMISTRY Creatinine 0.8 mg/dL 0.5 - 1.4 03/09 Normal [facility] Lvl [facility] CHEMISTRY Sodium Lvl 138 meq/L 135 - 145 03/09 Normal [facility] CHEMISTRY Potassium Lvl 4.7 meq/L 3.5 - 5.1 03/09 Normal [facility] CHEMISTRY Chloride Lvl 104 meq/L 95 - 109 03/09 Normal [facility] CHEMISTRY CO2 23 meq/L 24 - 32 03/09 LOW [facility] CHEMISTRY Bili Total 0.2 mg/dL 0.2 - 1.3 07/ Normal [facility] CHEMISTRY AST 22 unit/L 0 - 37 / Normal [facility]2012 [facility] CHEMISTRY Total Protein 4.8 g/dL 6.4 - 8.4 07 LOW [facility]2012 [facility] CHEMISTRY Calcium Lvl 7.4 mg/dL 8.5 - 10.5 03/09 LOW [facility]2012 [facility] CHEMISTRY Albumin Lvl 1.9 g/dL 3.5 - 5.0 03/09 LOW [facility]2012 [facility] CHEMISTRY Glucose Lvl 192 mg/dL 70 - 99 07/ [place] 7Interpretive Data: Adult reference range values reflect the clinical guidelines of the [place] [employer]. [facility] CHEMISTRY Alk Phos 162 unit/L 39 - 136 03/09 HI 2012 [facility] CHEMISTRY ALT 18 unit/L 0 - 65 03/09 Normal [facility]2012 [facility] CHEMISTRY A/G Ratio 0.7 0.7 - 1.6 03/09 Normal [facility] CHEMISTRY Globulin 2.9 g/dL 2.0 - 4.0 03/09 Normal [facility] CHEMISTRY AGAP 15.7 meq/L 10.0 - 07 Normal [facility] 20.0 [facility] CHEMISTRY B/C Ratio 9 6 - 25 03/09 Normal [facility] HEMATOLOGY Eosinophils 1.9 % 0.0 - 4.0 / Normal [facility] HEMATOLOGY Basophils 1.0 % 0.0 - 1.0 03/09 Normal [facility]2012 [facility] HEMATOLOGY Anisocyte 1+ None Seen 03/09 ABN Medical *ABN* Center (03/09/2013 01:09:00) HEMATOLOGY Lymphocytes # 2.0 K/CMM 1.0 - 5.5 07/ Normal [facility]2012 [facility] HEMATOLOGY Monocytes # 0.6 K/CMM 0.0 - 0.8 07/ Normal [facility]2012 [facility] HEMATOLOGY Eosinophils # 0.1 K/CMM 0.0 - 0.5 07/ Normal [facility]2012 [facility] HEMATOLOGY Basophils # 0.1 K/CMM 0.0 - 0.2 07/ Normal [facility] HEMATOLOGY Segs-Bands # 4.6 K/CMM 1.5 - 8.1 07 Normal [facility] HEMATOLOGY Segs 62.8 % 45.0 - 07/ Normal [place] 75.0 /2012 Medical Center HEMATOLOGY Lymphocytes 26.4 % 20.0 - 07/04 Normal [place] 40.0 /2012 Medical Center HEMATOLOGY Monocytes 7.9 % 2.0 - 12.0 07/ Normal /2012 Medical Center HEMATOLOGY RDW 20.7 % 11.5 - 07/04 [facility] [place] 14.5 /2012 Medical Center HEMATOLOGY Platelet 304 K/CMM 133 - 450 07 Normal /2012 [facility] Center HEMATOLOGY MPV 8.0 fL 7.4 - 10.4 07/ Normal [facility] HEMATOLOGY Hct 24.9 % 36.0 - 07/ LOW [place] 48.0 /2012 [facility] HEMATOLOGY MCV 79.3 fL 81.0 - 07/ LOW [place] 99.0 /2012 [facility] HEMATOLOGY MCH 24.7 pg 27.0 - 07 LOW [place] 31.0 /2012 Medical Center HEMATOLOGY MCHC 31.2 g/dL 32.0 - 07 LOW [place] 36.0 /2012 [facility] Center HEMATOLOGY RBC 3.14 M/CMM 4.20 - 07 LOW [place] 5.40 /2012 Medical Center HEMATOLOGY Hgb 7.8 g/dL 12.0 - 07/ LOW [place] 16.0 /2012 [facility] Center HEMATOLOGY WBC 7.4 K/CMM 3.7 - 10.4 03/09 Normal [facility] BEDSIDE Gluc POC 131 mg/dL 70 - 99 03/09 HI 2Interpretive [facility] GLUCOSE Lifma Data: Medical TESTING Center Upper Reportable Limit: 200 mg/dL. BEDSIDE Comment1 Notify 03/09 NA [facility] GLUCOSE RN/MD /2012 [facility] BEDSIDE Comment1 Notify 03/09 NA [facility] GLUCOSE RN/MD /2012 [facility] BEDSIDE Gluc POC 155 mg/dL 70 - 99 03/09 [place] 3Interpretive [facility] GLUCOSE Lifsc Data: Medical [facility]ING Center Upper Reportable Limit: 200 mg/dL. CHEMISTRY Magnesium Lvl 1.5 mg/dL 1.8 - 2.4 03/08 LOW [facility] Center CHEMISTRY A/G Ratio 0.7 0.7 - 1.6 03/08 Normal Medical Center CHEMISTRY B/C Ratio 8 6 - 25 03/08 Normal [facility] CHEMISTRY Globulin 2.8 g/dL 2.0 - 4.0 03/08 Normal [facility] CHEMISTRY AGAP 15.8 meq/L 10.0 - 03/08 Normal [facility] 20.0 [facility] CHEMISTRY Potassium Lvl 3.8 meq/L 3.5 - 5.1 03/08 Normal [facility] CHEMISTRY Chloride Lvl 100 meq/L 95 - 109 03/08 Normal [facility] CHEMISTRY CO2 23 meq/L 24 - 32 03/08 LOW [facility] CHEMISTRY Total Protein 4.8 g/dL 6.4 - 8.4 03/08 LOW [facility] CHEMISTRY AST 10 unit/L 0 - 37 03/08 Normal [facility] CHEMISTRY Calcium Lvl 7.6 mg/dL 8.5 - 10.5 03/08 LOW [facility] CHEMISTRY Bili Total 0.3 mg/dL 0.2 - 1.3 03/08 Normal [facility] CHEMISTRY eGFR 88 03/08 NA 5Result Comment: The eGFR is calculated using the CKD-EPI formula. In most young, healthy individuals the eGFR will be > 90 mL/min/1.73m2. The eGFR declines with age. An eGFR of 60-89 may be normal in [facility] mL/min/1. some populations, particularly the elderly, for whom the CKD-EPI formula has not been extensively validated. Use of the eGFR is not recommended in the following populations: [address] Individuals with unstable creatinine concentrations, including [...] values reflect the clinical guidelines of the [place] [employer]. [facility] CHEMISTRY BUN 6 mg/dL 7 - 22 03/08 LOW [facility] CHEMISTRY Creatinine 0.8 mg/dL 0.5 - 1.4 03/08 Normal [facility] CHEMISTRY Sodium Lvl 135 meq/L 135 - 145 07 Normal [facility] CHEMISTRY Alk Phos 173 unit/L 39 - 136 07 HI [facility] CHEMISTRY ALT 16 unit/L 0 - 65 07 Normal [facility] CHEMISTRY Albumin Lvl 2.0 g/dL 3.5 - 5.0 03/08 LOW [facility] CHEMISTRY Lipase Lvl 54 unit/L 73 - 393 03/08 LOW [facility] CHEMISTRY Amylase Lvl 30 unit/L 25 - 115 03/08 Normal [facility] HEMATOLOGY Basophils # 0.1 K/CMM 0.0 - 0.2 03/08 Normal [facility] HEMATOLOGY Anisocyte 1+ None Seen 03/08 ABN [facility] *[facility]* Center (03/08/2013 03:01:00) HEMATOLOGY Microcyte 1+ None Seen 03/08 [facility] *ABN* Center (03/08/2013 03:01:00) HEMATOLOGY Eosinophils # 0.2 K/CMM 0.0 - 0.5 03/08 Normal [facility] HEMATOLOGY Monocytes # 0.8 K/CMM 0.0 - 0.8 03/08 Normal [facility] HEMATOLOGY Lymphocytes 34.2 % 20.0 - 07 Normal [facility] 40.0 [facility] HEMATOLOGY Segs 53.3 % 45.0 - 03/08 [facility] 75.0 [facility] HEMATOLOGY Lymphocytes # 3.0 K/CMM 1.0 - 5.5 03/08 Normal [facility] HEMATOLOGY Segs-Bands # 4.7 K/CMM 1.5 - 8.1 03/08 Normal [facility] HEMATOLOGY Basophils 0.9 % 0.0 - 1.0 07/ Normal [facility] HEMATOLOGY Eosinophils 2.6 % 0.0 - 4.0 07/ Normal [facility] HEMATOLOGY Monocytes 9.0 % 2.0 - 12.0 / Normal [facility] HEMATOLOGY Hgb 7.9 g/dL 12.0 - 07 LOW [facility] 16.0 [facility] HEMATOLOGY RBC 3.12 M/CMM 4.20 - 07/03 LOW [facility] 5.40 /2012 [facility] HEMATOLOGY MPV 8.0 fL 7.4 - 10.4 07/ Normal Medical [place] HEMATOLOGY Platelet 294 K/CMM 133 - 450 07/ Normal Medical [place] HEMATOLOGY MCH 25.3 pg 27.0 - 07/ [facility] 31.0 /2012 Medical [place] HEMATOLOGY MCV 79.7 fL 81.0 - 07/ [facility] 99.0 /2012 Medical [place] HEMATOLOGY Hct 24.9 % 36.0 - 07/ [facility] 48.0 /2012 Medical [place] HEMATOLOGY WBC 8.8 K/CMM 3.7 - 10.4 07/ Normal [facility] HEMATOLOGY RDW 21.4 % 11.5 - 07/03 [place] [facility] 14.5 /2012 Medical [place] HEMATOLOGY MCHC 31.8 g/dL 32.0 - 07/ [facility] 36.0 /2012 [facility] CHEMISTRY Troponin-I null 0.00 - 07 Normal [facility] 0.40 [facility] CHEMISTRY Total CK 26 unit/L 12 - 191 07 Normal [facility] CHEMISTRY A/G Ratio 0.6 0.7 - 1.6 07/ LOW [facility] CHEMISTRY Bili Total 0.6 mg/dL 0.2 - 1.3 07 Normal [facility] CHEMISTRY Bili Direct 0.3 mg/dL 0.0 - 0.3 07/ Normal [facility] CHEMISTRY Alk Phos 190 unit/L 39 - 136 07 [facility] CHEMISTRY Total Protein 5.2 g/dL 6.4 - 8.4 07 [facility] CHEMISTRY Globulin 3.2 g/dL 2.0 - 4.0 07/ Normal [facility] CHEMISTRY Bili Indirect 0.3 mg/dL 0.0 - 1.0 07/ Normal [facility] CHEMISTRY AST 11 unit/L 0 - 37 07 Normal [facility] CHEMISTRY Albumin Lvl 2.0 g/dL 3.5 - 5.0 07 LOW [facility] CHEMISTRY ALT 19 unit/L 0 - 65 07/ Normal [facility] CHEMISTRY Amylase Lvl 26 unit/L 25 - 115 07 Normal [facility] CHEMISTRY Lipase Lvl 49 unit/L 73 - 393 07 LOW [facility] HEMATOLOGY MPV 8.3 fL 7.4 - 10.4 07 Normal [facility] HEMATOLOGY MCH 24.7 pg 27.0 - 07 [facility] 31.0 /2012 [facility] HEMATOLOGY MCHC 32.6 g/dL 32.0 - 07 Normal [facility] 36.0 /2012 [facility] HEMATOLOGY RDW 20.1 % 11.5 - 07/ [facility] 14.5 /2012 [facility] HEMATOLOGY Platelet 362 K/CMM 133 - 450 07 Normal [facility] HEMATOLOGY MCV 75.7 fL 81.0 - 07 [facility] 99.0 /2012 [facility] HEMATOLOGY Hgb 8.8 g/dL 12.0 - 03/07 [facility] 16.0 [facility] HEMATOLOGY Hct 26.9 % 36.0 - 03/07 [facility] 48.0 /2012 [facility] HEMATOLOGY RBC 3.56 M/CMM 4.20 - 03/07 [facility] 5.40 /2012 [facility] HEMATOLOGY WBC 11.1 K/CMM 3.7 - 10.4 03/07 [facility] HEMATOLOGY Lymphocytes # 2.4 K/CMM 1.0 - 5.5 03/07 Normal [facility] HEMATOLOGY Hypochrom Slight None Seen 03/07 Normal [facility] (03/07/2013 07:43:59) Center HEMATOLOGY Microcyte 2+ None Seen 03/07 [facility] *ABN* [place] (03/07/2013 07:43:59) HEMATOLOGY Anisocyte 1+ None Seen 03/07 [facility] *ABN* [place] (03/07/2013 07:43:59) HEMATOLOGY Basophils # 0.1 K/CMM 0.0 - 0.2 03/07 Normal [facility] HEMATOLOGY Polychrom Slight None Seen 03/07 [facility] (03/07/2013 07:43:59) Center HEMATOLOGY Basophils 0.8 % 0.0 - 1.0 03/07 Normal [facility] HEMATOLOGY Eosinophils 1.3 % 0.0 - 4.0 03/07 Normal [facility] HEMATOLOGY Segs-Bands # 7.6 K/CMM 1.5 - 8.1 07/02 Normal [facility] HEMATOLOGY Monocytes 8.1 % 2.0 - 12.0 03/07 Normal [facility] HEMATOLOGY Monocytes # 0.9 K/CMM 0.0 - 0.8 / HI [facility] HEMATOLOGY Eosinophils # 0.1 K/CMM 0.0 - 0.5 03/07 Normal [facility] HEMATOLOGY Target Cell Slight None Seen 03/07 ABN Medical *ABN* Center (03/07/2013 07:43:59) HEMATOLOGY Plt Morph Normal 03/07 Normal Medical (03/07/2013 07:43:59) Center HEMATOLOGY Lymphocytes 22.0 % 20.0 - 07 [facility] 40.0 [facility] HEMATOLOGY Segs 67.8 % 45.0 - 07 Normal [facility] 75.0 [facility] CHEMISTRY Lactic Acid 1.7 mMol/L 0.5 - 2.2 03/07 Normal [facility] Lvl [facility] CHEMISTRY Total CK 21 unit/L 12 - 191 03/07 Normal [facility] CHEMISTRY Troponin-I null 0.00 - 07 Normal [facility] 0.40 /2012 [facility] CHEMISTRY eGFR 104 03/07 NA 6Result Comment: The eGFR is calculated using the CKD-EPI formula. In most young, healthy individuals the eGFR will be > 90 mL/min/1.73m2. The eGFR declines with age. An eGFR of 60-89 may be normal in [facility] mL/min/1.7 some populations, particularly the elderly, for whom the CKD-EPI formula has not been extensively validated. Use of the eGFR is not recommended in the following populations: [address] Individuals with unstable creatinine concentrations, including [...] 27 meq/L 24 - 32 07/ Normal [facility] CHEMISTRY Potassium Lvl 3.6 meq/L 3.5 - 5.1 03/07 Normal [facility] CHEMISTRY Chloride Lvl 99 meq/L 95 - 109 03/07 Normal [facility] CHEMISTRY Sodium Lvl 134 meq/L 135 - 145 03/07 LOW [facility] CHEMISTRY BUN 5 mg/dL 7 - 22 03/07 LOW [facility] CHEMISTRY Creatinine 0.7 mg/dL 0.5 - 1.4 03/07 Normal [facility] Lvl [facility] CHEMISTRY Glucose Lvl 233 mg/dL 70 - 99 03/07 HI 9Interpretive Data: Adult reference range values reflect the clinical guidelines of the [place] [employer]. [facility] CHEMISTRY Calcium Lvl 7.7 mg/dL 8.5 - 10.5 03/07 LOW [facility] CHEMISTRY AGAP 11.6 meq/L 10.0 - 07 Normal [facility] 20.0 [facility] CHEMISTRY Temp Art 37.0 Abby 03/07 NA [facility] CHEMISTRY pH Art 7.41 7.35 - 03/07 Normal [facility] 7.45 [facility] CHEMISTRY pCO2 Art 34 mm[Hg] 35 - 45 03/07 LOW [facility] CHEMISTRY O2 Sat Art 97.5 % 95.0 - 03/07 Normal [facility] 100.0 [facility] CHEMISTRY HCO3 Art 22 mMol/L 22 - 26 03/07 Normal [facility] CHEMISTRY BE Art -2 mMol/L -2-2 - 2 03/07 Normal [facility] CHEMISTRY pO2 Art 96 mm[Hg] 80 - 100 03/07 Normal [facility] Chest 1view Chest 1view EXAM: CHEST 1 VIEW 03/07 - - Medical This report was dictated by a Territory Supervisor/Fellow. I have personally reviewed the images as [...] CHEMISTRY Temp Mark 37.0 Abby 07 NA [facility] CHEMISTRY pO2 Mark 20 mm[Hg] 20 - 49 03/07 Normal [facility] CHEMISTRY HCO3 Mark 21 mMol/L 22 - 26 03/07 LOW [facility] CHEMISTRY BE Mark -2 mMol/L -2-2 - 2 03/07 Normal [facility] CHEMISTRY O2 Sat Mark 36.2 % 40.0 - 03/07 [facility] 70.0 [facility] CHEMISTRY pCO2 Mark 29 mm[Hg] 38 - 52 03/07 LOW [facility] CHEMISTRY pH Mark 7.46 7.28 - 03/07 [facility] 7.42 [facility] CHEMISTRY Lactic Acid 2.6 mMol/L 0.5 - 2.2 03/07 HI [facility] Lvl [facility] CHEMISTRY Phosphorus 3.1 mg/dL 2.5 - 4.5 03/07 Normal [facility] CHEMISTRY Magnesium Lvl 1.6 mg/dL 1.8 - 2.4 03/07 LOW [facility] CHEMISTRY Total CK 31 unit/L 12 - 191 03/07 Normal [facility] CHEMISTRY Troponin-I null 0.00 - 03/07 Normal [facility] 0.40 [facility] CHEMISTRY U Preg Negative Negative 03/06 Normal [facility] (03/06/2013 18:25:00) Center URINALYSIS UA Amorph Occasional /HPF None Seen 03/06 [facility] Medical *ABN* [place] (03/06/2013 18:25:00) URINALYSIS UA Mucus Few /LPF None Seen 03/06 Normal [facility] (03/06/2013 18:25:00) Center URINALYSIS Micro? Performed 03/06 Normal [facility] (03/06/2013 18:25:00) Center URINALYSIS UA Sq Epi Moderate /LPF Few 03/06 [facility] Medical *ABN* Center (03/06/2013 18:25:00) URINALYSIS UA WBC 0-2 /HPF None Seen 03/06 Normal [facility] (03/06/2013 18:25:00) Center URINALYSIS UA RBC None Seen 0 - 2 03/06 Normal [facility] (03/06/2013 18:25:00) Center URINALYSIS UA Bacteria Few /HPF None Seen 03/06 Normal [facility] (03/06/2013 18:25:00) Center URINALYSIS UA Bili Negative Negative 03/06 NA Medical *NA* [place] (03/06/2013 18:25:00) URINALYSIS UA 0.2 EU/dL 0.1 - 1.0 03/06 Normal [facility] Urobilinogen /2012 [facility] URINALYSIS UA Nitrite Negative Negative 03/06 Normal [facility] (03/06/2013 18:25:00) Center URINALYSIS UA Leuk Est Trace Negative 03/06 [facility] *ABN* [place] (03/06/2013 18:25:00) URINALYSIS UA Blood Negative Negative 03/06 Normal [facility] (03/06/2013 18:25:00) Center URINALYSIS UA Ketones 40 mg/dL Negative 03/06 [facility] Medical *ABN* [place] (03/06/2013 18:25:00) URINALYSIS UA Turbidity Clear Clear 03/06 Normal [facility] (03/06/2013 18:25:00) [place] URINALYSIS UA Color Yellow Yellow 03/06 NA [facility] *NA* [place] (03/06/2013 18:25:00) URINALYSIS UA Spec Grav 1.015 <=1.030 03/06 Normal [facility] URINALYSIS UA Protein Negative Negative 03/06 Normal [facility] (03/06/2013 18:25:00) Center URINALYSIS UA Glucose 250 mg/dL Negative 03/06 [facility] *ABN* [place] (03/06/2013 18:25:00) URINALYSIS UA pH 7.5 5.0 - 8.0 03/06 Normal [facility] Chest 2 Chest 2 views EXAM: CHEST 2 VIEWS 03/06 - [facility] - Medical This report was dictated by a Territory Supervisor/Fellow. I have personally reviewed the images as [...] left pleural effusion. BEDSIDE Comment1 Notify 12/07 [facility] Fei GLUCOSE MARTÍNEZ/ [facility] TESTING Center BEDSIDE Gluc POC 64 mg/dL 70 - 99 12/07 LOW 3Interpretive [facility]SE [facility] Upper Reportable Limit: 200 mg/dL. BEDSIDE Gluc POC 50 mg/dL 70 - 99 12/07 LOW 4Interpretive [facility] GLUCOSE [facility] Data: [facility] Upper Reportable Limit: 200 mg/dL. BEDSIDE Comment1 Notify 12/07 [facility] Fei GLUCOSE MARTÍNEZ/ /2012 [facility] BEDSIDE Gluc POC 45 mg/dL 70 - 99 12/07 LOW 5Interpretive [facility]COSE [facility]: [facility] Upper Reportable Limit: 200 mg/dL. BEDSIDE Comment1 Notify 12/07 [facility] Fei ROACH RN/ /2012 [facility] CHEMISTRY eGFR 109 12/07 NA 7Result Comment: The eGFR is calculated using the CKD-EPI formula. In most young, healthy individuals the eGFR will be > 90 mL/min/1.73m2. The eGFR declines with age. An eGFR of 60-89 may be normal in [facility] mL/min/1.7 /2012 some populations, particularly the elderly, for whom the CKD-EPI formula has not been extensively validated. Use of the eGFR is not recommended in the following populations: [address] Center Individuals with unstable creatinine concentrations, [...] 8.3 mg/dL 8.5 - 10.5 12/07 LOW [facility] CHEMISTRY AGAP 12.8 meq/L 10.0 - 12/07 Normal [facility] 20.0 [facility] CHEMISTRY BUN 2 mg/dL 7 - 22 12/07 LOW [facility] CHEMISTRY Glucose Lvl 95 mg/dL 70 - 99 12/07 Normal 10Interpretive Data: Adult reference range values reflect the clinical guidelines of the [place] [employer]. [facility] Center CHEMISTRY Potassium Lvl 3.8 meq/L 3.5 - 5.1 12/07 Normal [facility] CHEMISTRY Creatinine 0.6 mg/dL 0.5 - 1.4 12/07 Normal [facility] CHEMISTRY Sodium Lvl 140 meq/L 135 - 145 12/07 Normal [facility] CHEMISTRY Chloride Lvl 105 meq/L 95 - 109 12/07 Normal [facility] CHEMISTRY CO2 26 meq/L 24 - 32 12/07 Normal [facility] BEDSIDE Comment2 Verify 12/06 NA [facility] GLUCOSE Lab [facility] BEDSIDE Comment2 Verify 12/06 NA [facility] GLUCOSE /Lab [facility] TESTING [place] CHEMISTRY AGAP 13.5 meq/L 10.0 - 12/06 Normal [facility] .0 [facility] CHEMISTRY Calcium Lvl 8.1 mg/dL 8.5 - 10.5 12/06 LOW [facility] CHEMISTRY CO2 28 meq/L 24 - 32 12/06 Normal [facility] CHEMISTRY Chloride Lvl 101 meq/L 95 - 109 12/06 Normal [facility] CHEMISTRY eGFR 104 04 NA 8Result Comment: The eGFR is calculated using the CKD-EPI formula. In most young, healthy individuals the eGFR will be > 90 mL/min/1.73m2. The eGFR declines with age. An eGFR of 60-89 may be normal in [facility] mL/min/1.7 some populations, particularly the elderly, for whom the CKD-EPI formula has not been extensively validated. Use of the eGFR is not recommended in the following populations: [address] Individuals with unstable creatinine concentrations, including [...] reference range values reflect the clinical guidelines [facility] of the [employer]. [facility] CHEMISTRY BUN 2 mg/dL 7 - 22 04 LOW [facility]2012 [facility] CHEMISTRY Creatinine 0.7 mg/dL 0.5 - 1.4 / Normal [facility]2012 [facility] CHEMISTRY Sodium Lvl 139 meq/L 135 - 145 / Normal [facility]2012 [facility] CHEMISTRY Potassium Lvl 3.5 meq/L 3.5 - 5.1 12/06 Normal [facility]2012 [facility] CHEMISTRY Lipase Lvl 62 unit/L 73 - 393 04/ LOW [facility]2012 [facility] CHEMISTRY Alk Phos 92 unit/L 39 - 136 04/ Normal [facility]2012 [facility] CHEMISTRY Albumin Lvl 2.7 g/dL 3.5 - 5.0 / [facility]2012 [facility] CHEMISTRY Total Protein 5.8 g/dL 6.4 - 8.4 / LOW [facility]2012 [facility] CHEMISTRY Globulin 3.1 g/dL 2.0 - 4.0 / Normal [facility]2012 [facility] CHEMISTRY A/G Ratio 0.9 0.7 - 1.6 / Normal [facility]2012 [facility] CHEMISTRY AST 74 unit/L 0 - 37 04/ HI [facility] CHEMISTRY ALT 50 unit/L 0 - 65 / Normal [facility]2012 [facility] CHEMISTRY Bili Indirect 0.1 mg/dL 0.0 - 1.0 / Normal [facility]2012 [facility] CHEMISTRY Bili Total 0.2 mg/dL 0.2 - 1.3 / Normal [facility]2012 [facility] CHEMISTRY Bili Direct 0.1 mg/dL 0.0 - 0.3 12/06 Normal [facility]2012 [facility] CHEMISTRY eGFR 109 12/05 NA 9Result Comment: The eGFR is calculated using the CKD-EPI formula. In most young, healthy individuals the eGFR will be > 90 mL/min/1.73m2. The eGFR declines with age. An eGFR of 60-89 may be normal in [facility] mL/min/1.7 some populations, particularly the elderly, for whom the CKD-EPI formula has not been extensively validated. Use of the eGFR is not recommended in the following populations: [facility] Individuals with unstable creatinine concentrations, including [...] values reflect the clinical guidelines of the [place] [employer]. [facility] CHEMISTRY Creatinine 0.6 mg/dL 0.5 - 1.4 12/05 Normal [facility] Lvl [facility] CHEMISTRY BUN 1 mg/dL 7 - 22 12/05 LOW [facility] CHEMISTRY Chloride Lvl 102 meq/L 95 - 109 12/05 Normal [facility] CHEMISTRY Potassium Lvl 3.3 meq/L 3.5 - 5.1 12/05 LOW [facility] CHEMISTRY Sodium Lvl 140 meq/L 135 - 145 12/05 Normal [facility] CHEMISTRY Calcium Lvl 7.9 mg/dL 8.5 - 10.5 12/05 LOW [facility] CHEMISTRY CO2 29 meq/L 24 - 32 12/05 Normal [facility] CHEMISTRY AGAP 12.3 meq/L 10.0 - 12/05 Normal [facility] 20.0 [facility] CHEMISTRY Ca Norm mgdL 4.84 mg/dL 4.65 - 12/03 Normal [facility] 5. [facility] CHEMISTRY Ca Ion mgdL 4.84 mg/dL 4.65 - 12/03 Normal [facility] 5. [facility] CHEMISTRY Ca Ion 1.21 1.16 - 12/03 Normal [facility] mMol/L 1.30 [facility] CHEMISTRY Ca Norm 1.21 1.16 - 12/03 Normal [facility] mMol/L 1. [facility] CHEMISTRY Magnesium Lvl 1.8 mg/dL 1.8 - 2.4 12/03 Normal [facility] CHEMISTRY Phosphorus 3.4 mg/dL 2.5 - 4.5 12/03 Normal [facility] HEMATOLOGY Lymphocytes # 1.8 K/CMM 1.0 - 5.5 12/03 Normal [facility] HEMATOLOGY Lymphocytes 23.6 % 20.0 - 12/03 Normal [place] 40.0 [facility] HEMATOLOGY Eosinophils 2.9 % 0.0 - 4.0 12/03 Normal [facility] HEMATOLOGY Monocytes 9.1 % 2.0 - 12.0 12/03 Normal [facility] HEMATOLOGY Basophils 0.6 % 0.0 - 1.0 12/03 Normal [facility] HEMATOLOGY Segs-Bands # 5.0 K/CMM 1.5 - 8.1 12/03 Normal [facility] HEMATOLOGY Segs 63.8 % 45.0 - 12/03 Normal [place] 75.0 [facility] HEMATOLOGY Monocytes # 0.7 K/CMM 0.0 - 0.8 12/03 Normal [facility] HEMATOLOGY Eosinophils # 0.2 K/CMM 0.0 - 0.5 12/03 Normal [facility] HEMATOLOGY Microcyte 1+ None Seen 12/03 ABN [facility] *ABN* Center (12/03/2012 01:02:00) HEMATOLOGY WBC 7.8 K/CMM 3.7 - 10.4 12/03 Normal [facility] HEMATOLOGY Hct 27.8 % 36.0 - 12/03 LOW [place] 48.0 [facility] HEMATOLOGY MPV 8.5 fL 7.4 - 10.4 12/03 Normal [facility] HEMATOLOGY MCHC 32.4 g/dL 32.0 - 12/03 Normal [facility] 36.0 [facility] HEMATOLOGY RDW 18.9 % 11.5 - 12/03 HI [place] 14.5 [facility] HEMATOLOGY MCH 24.6 pg 27.0 - 12/03 LOW [place] 31.0 [facility] HEMATOLOGY RBC 3.66 M/CMM 4.20 - 12/03 LOW [place] 5.40 [facility] HEMATOLOGY MCV 75.9 fL 81.0 - 12/03 LOW [facility] 99.0 Medical [place] HEMATOLOGY Platelet 224 K/CMM 133 - 450 12/03 Normal [facility] HEMATOLOGY Hgb 9.0 g/dL 12.0 - 12/03 LOW [facility] 16.0 [facility] Microbiolog Culture: 12/02 [facility] y Blood /2012 [facility] Center Microbiolog Culture: MRSA 12/02 [facility] y /2012 Medical Center Microbiolog Culture: 12/02 [facility] y Resistant Medical Acinetobacter Center Screen CHEMISTRY Ketone 1.42 <=0.27 12/02 HI [facility] Quantitative mmol/L /2012 [facility] URINALYSIS UA WBC 1 /HPF 0 - 5 12/02 Normal [facility] URINALYSIS UA RBC null 0 - 2 12/02 Normal [facility] URINALYSIS UA <=1.0 0.1 - 1.0 12/02 NA [facility] Urobilinogen mg/dL Medical
*NA*< Center br/>(12/02 04:02:55) <sup> </sup> URINALYSIS UA Sq Epi Moderate /LPF Few 12/02 ABN Medical *ABN* Center (12/02/2012 04:02:55) URINALYSIS UA Leuk Est Negative Negative 12/02 Normal [facility] (12/02/2012 04:02:55) Center URINALYSIS UA Nitrite Negative Negative 12/02 Normal [facility] (12/02/2012 04:02:55) Center URINALYSIS UA Mucus Few /LPF None Seen 12/02 NA Medical *NA* Center (12/02/2012 04:02:55) URINALYSIS UA Ketones 40 mg/dL Negative 12/02 ABN [facility] *ABN* Center (12/02/2012 04:02:55) URINALYSIS UA Blood Negative Negative 12/02 Normal [facility] (12/02/2012 04:02:55) Center URINALYSIS UA Glucose >=1000 mg/dL Negative 12/02 ABN [facility] *ABN* Center (12/02/2012 04:02:55) URINALYSIS UA Bili Negative Negative 12/02 NA Medical *NA* Center (12/02/2012 04:02:55) URINALYSIS UA Protein Negative mg/dL Negative 12/02 Normal [facility] (12/02/2012 04:02:55) Center URINALYSIS UA Turbidity Clear Clear 12/02 Normal [facility] (12/02/2012 04:02:55) Center URINALYSIS UA pH 5.5 5.0 - 8.0 12/02 Normal [facility] URINALYSIS UA Spec Grav 1.010 <=1.030 12/02 Normal [facility] URINALYSIS UA Color Yellow Yellow 12/02 NA [facility] *NA* Center (12/02/2012 04:02:55) HEMATOLOGY MPV 8.9 fL 7.4 - 10.4 12/02 Normal [facility] HEMATOLOGY Hct 27.9 % 36.0 - 12/02 [facility] 48.0 [facility] HEMATOLOGY MCV 76.1 fL 81.0 - 12/02 [facility] 99.0 [facility] HEMATOLOGY MCH 25.2 pg 27.0 - 12/02 LOW [facility] 31.0 [facility] HEMATOLOGY MCHC 33.2 g/dL 32.0 - 12/02 Normal [facility] 36.0 [facility] HEMATOLOGY RDW 19.3 % 11.5 - 12/02 HI [facility] 14.5 [facility] HEMATOLOGY Platelet 224 K/CMM 133 - 450 12/02 Normal [facility] HEMATOLOGY WBC 8.6 K/CMM 3.7 - 10.4 12/02 Normal [facility] HEMATOLOGY Hgb 9.3 g/dL 12.0 - 12/02 [facility] 16.0 [facility] HEMATOLOGY RBC 3.67 M/CMM 4.20 - 12/02 [facility] 5.40 /2012 [facility] HEMATOLOGY Segs-Bands # 6.4 K/CMM 1.5 - 8.1 12/02 Normal [facility] HEMATOLOGY Lymphocytes # 1.5 K/CMM 1.0 - 5.5 12/02 Normal [facility] HEMATOLOGY Eosinophils 0.6 % 0.0 - 4.0 12/02 Normal [facility] HEMATOLOGY Basophils 0.7 % 0.0 - 1.0 12/02 Normal [facility] HEMATOLOGY Lymphocytes 17.3 % 20.0 - 12/02 LOW [facility] 40.0 [facility] HEMATOLOGY Monocytes # 0.7 K/CMM 0.0 - 0.8 12/02 Normal [facility] HEMATOLOGY Microcyte 1+ None Seen 12/02 ABN [facility] *ABN* Center (12/02/2012 04:02:51) HEMATOLOGY Eosinophils # 0.1 K/CMM 0.0 - 0.5 12/02 Normal [facility] HEMATOLOGY Basophils # 0.1 K/CMM 0.0 - 0.2 12/02 Normal [facility] HEMATOLOGY Segs 73.8 % 45.0 - 12/02 Normal [facility] 75.0 [facility] HEMATOLOGY Monocytes 7.6 % 2.0 - 12.0 12/02 Normal [facility] Microbiolog Culture: 12/02 [facility] y [facility] CHEMISTRY POC A Glu 305 mg/dL 70 - 99 12/02 HI [facility] CHEMISTRY POC A Hct 29.0 % 36.0 - 12/02 LOW [facility] 48.0 [facility] CHEMISTRY POC A O2 Sat 97.0 % 95.0 - 12/02 Normal [facility] 100.0 [facility] CHEMISTRY POC A K 3.4 meq/L 3.5 - 5.1 12/02 LOW [facility] CHEMISTRY POC A Na 130 meq/L 135 - 145 12/02 LOW [facility] CHEMISTRY POC A PCO2 38 mm[Hg] 35 - 45 12/02 Normal [facility] CHEMISTRY POC A BE 2 mMol/L -2-2 - 2 12/02 Normal [facility] CHEMISTRY POC A HCO3 26 mMol/L 22 - 26 12/02 Normal [facility] CHEMISTRY POC A Source ART 12/02 NA [facility] CHEMISTRY POC A PO2 89 mm[Hg] 80 - 100 12/02 Normal [facility] CHEMISTRY POC A pH 7.44 7.35 - 12/02 Normal [facility] 7.45 [facility] CHEMISTRY POC A Temp 37.0 Abby 12/02 NA [facility] CHEMISTRY POC A Ca Ion 1.12 1.16 - 12/02 LOW [facility] mMol/L 1.30 [facility] CHEMISTRY POC A LA 0.8 mMol/L 0.5 - 2.2 12/02 Normal [facility] CHEMISTRY Magnesium Lvl 1.9 mg/dL 1.8 - 2.4 12/02 Normal [facility] CHEMISTRY Phosphorus 2.7 mg/dL 2.5 - 4.5 12/02 Normal [facility] CHEMISTRY Ca Norm mgdL 4.36 mg/dL 4.65 - 12/02 LOW [facility] 5. [facility] CHEMISTRY Ca Ion 1.14 1.16 - 12/02 LOW [place] mMol/L 1. [facility] CHEMISTRY Ca Ion mgdL 4.56 mg/dL 4.65 - 12/02 LOW [facility] 5. [facility] CHEMISTRY Ca Norm 1.09 1.16 - 12/02 LOW [facility] mMol/L 1. [facility] HEMATOLOGY Platelet 223 K/CMM 133 - 450 12/02 Normal [facility] HEMATOLOGY MPV 9.2 fL 7.4 - 10.4 12/02 Normal [facility] HEMATOLOGY MCHC 32.3 g/dL 32.0 - 12/02 Normal [facility] 36.0 [facility] HEMATOLOGY RDW 19.2 % 11.5 - 12/02 HI [facility] 14.5 [facility] HEMATOLOGY WBC 7.6 K/CMM 3.7 - 10.4 12/02 Normal [facility] HEMATOLOGY Hgb 9.2 g/dL 12.0 - 12/02 [facility] 16.0 [facility] HEMATOLOGY Hct 28.6 % 36.0 - 12/02 [facility] 48.0 /2012 [facility] HEMATOLOGY MCV 76.3 fL 81.0 - 12/02 [facility] 99.0 [facility] HEMATOLOGY MCH 24.6 pg 27.0 - 12/02 [facility] 31.0 /2012 [facility] HEMATOLOGY RBC 3.74 M/CMM 4.20 - 12/02 [facility] 5.40 /2012 [facility] HEMATOLOGY Microcyte 1+ None Seen 12/02 ABN Medical *ABN* Center (12/02/2012 03:00:00) HEMATOLOGY Basophils # 0.1 K/CMM 0.0 - 0.2 12/02 Normal [facility] HEMATOLOGY Monocytes # 0.6 K/CMM 0.0 - 0.8 12/02 Normal [facility] HEMATOLOGY Lymphocytes # 1.9 K/CMM 1.0 - 5.5 12/02 Normal [facility] HEMATOLOGY Segs-Bands # 5.0 K/CMM 1.5 - 8.1 12/02 Normal [facility] HEMATOLOGY Segs 65.5 % 45.0 - 12/02 Normal [facility] 75.0 /2012 [facility] HEMATOLOGY Lymphocytes 25.0 % 20.0 - 12/02 Normal [facility] 40.0 /2012 [facility] HEMATOLOGY Monocytes 8.4 % 2.0 - 12.0 12/02 Normal [facility] HEMATOLOGY Eosinophils 0.4 % 0.0 - 4.0 12/02 Normal [facility] HEMATOLOGY Basophils 0.7 % 0.0 - 1.0 12/02 Normal [facility] CHEMISTRY Magnesium Lvl 2.0 mg/dL 1.8 - 2.4 12/01 Normal [facility] CHEMISTRY Ca Norm mgdL 4.48 mg/dL 4.65 - 12/01 LOW [facility] 5. [facility] CHEMISTRY Ca Ion mgdL 4.68 mg/dL 4.65 - 12/01 Normal [facility] 5. [facility] CHEMISTRY Ca Ion 1.17 1.16 - 12/01 Normal [facility] mMol/L 1. [facility] CHEMISTRY Ca Norm 1.12 1.16 - 12/01 LOW [facility] mMol/L 1. [facility] CHEMISTRY Phosphorus 2.7 mg/dL 2.5 - 4.5 12/01 Normal [facility] URINALYSIS UA <=1.0 0.1 - 1.0 11/30 NA [facility] Urobilinogen mg/dL /2012 Medical
*NA*< Center br/>(11/30 17:41:33) <sup> </sup> URINALYSIS UA Mucus Few /LPF None Seen 11/30 NA Medical *NA* Center (11/30/2012 17:41:33) URINALYSIS UA WBC null 0 - 5 11/30 Normal [facility] URINALYSIS UA Sq Epi Moderate /LPF Few 11/30 ABN Medical *ABN* Center (11/30/2012 17:41:33) URINALYSIS UA Protein Negative mg/dL Negative 11/30 Normal Medical (11/30/2012 17:41:33) Center URINALYSIS UA pH 5.0 5.0 - 8.0 11/30 Normal [facility] Center URINALYSIS UA Spec Grav 1.004 <=1.030 11/30 Normal [facility] Center URINALYSIS UA Turbidity Clear Clear 11/30 Normal [facility] (11/30/2012 17:41:33) Center URINALYSIS UA Color Light Yellow Yellow 11/30 NA Medical *NA* [place] (11/30/2012 17:41:33) URINALYSIS UA Leuk Est Negative Negative 11/30 Normal [facility] (11/30/2012 17:41:33) Center URINALYSIS UA Nitrite Negative Negative 11/30 Normal [facility] (11/30/2012 17:41:33) Center URINALYSIS UA Blood Negative Negative 11/30 Normal [facility] (11/30/2012 17:41:33) Center URINALYSIS UA Bili Negative Negative 11/30 NA [facility] *NA* [place] (11/30/2012 17:41:33) URINALYSIS UA Ketones 10 mg/dL Negative 11/30 ABN Medical *ABN* [place] (11/30/2012 17:41:33) URINALYSIS UA Glucose Negative mg/dL Negative 11/30 NA [facility] *NA* [place] (11/30/2012 17:41:33) CHEMISTRY Ketone 1.65 <=0.27 11/30 HI [facility] Quantitative mmol/L /2012 [facility] HEMATOLOGY PT 14.1 s 12.0 - 11/30 Normal [facility] 14.7 [facility] HEMATOLOGY PTT 28.1 s 22.9 - 11/30 Normal 18Interpretiv [facility] 35.8 /2013 e Data: [facility] Heparin Center Therapeutic Range: 57 - 92 Seconds HEMATOLOGY INR 1.07 0.85 - 11/30 Normal 16Interpretive Data: RECOMMENDED RANGES FOR PROTIME INR: [facility] . 2.0-3.0 for most medical and surgical thromboembolic states. Medical 2.5-3.5 for artificial heart valves and recurrent embolism. Center INR SHOULD BE USED ONLY FOR PATIENTS ON STABLE ANTICOAGULANT THERAPY. CHEMISTRY U Potassium 31.2 meq/L 11/30 NA 14Interpretiv e Data: No Medical established Center reference ranges. CHEMISTRY U Sodium 87 meq/L 11/30 NA 13Interpretiv e Data: No [facility] established Center reference ranges. CHEMISTRY U Chloride 134 meq/L 11/30 NA [facility] CHEMISTRY Bili Total 0.4 mg/dL 0.2 - 1.3 11/30 Normal [facility] CHEMISTRY Total Protein 6.3 g/dL 6.4 - 8.4 11/30 LOW [facility] CHEMISTRY Albumin Lvl 2.9 g/dL 3.5 - 5.0 11/30 LOW [facility] CHEMISTRY Alk Phos 127 unit/L 39 - 136 11/30 Normal [facility] CHEMISTRY Bili Direct 0.2 mg/dL 0.0 - 0.3 11/30 Normal [facility] CHEMISTRY AST 22 unit/L 0 - 37 11/30 Normal [facility] CHEMISTRY ALT 20 unit/L 0 - 65 11/30 Normal [facility] CHEMISTRY A/G Ratio 0.9 0.7 - 1.6 11/30 Normal [facility] CHEMISTRY Bili Indirect 0.2 mg/dL 0.0 - 1.0 11/30 Normal [facility] CHEMISTRY Globulin 3.4 g/dL 2.0 - 4.0 11/30 Normal [facility] HEMATOLOGY Basophils # 0.1 K/CMM 0.0 - 0.2 11/30 Normal [facility] HEMATOLOGY PT 13.9 s 12.0 - 11/30 Normal [facility] 14.7 [facility] HEMATOLOGY PTT 26.5 s 22.9 - 11/30 Normal 19Interpretiv [facility] 35.8 /2012 e Data: [facility] Heparin Center Therapeutic Range: 57 - 92 Seconds HEMATOLOGY INR 1.05 0.85 - 11/30 Normal 17Interpretive Data: RECOMMENDED RANGES FOR PROTIME INR: [facility] . 2.0-3.0 for most medical and surgical thromboembolic states. Medical 2.5-3.5 for artificial heart valves and recurrent embolism. Center INR SHOULD BE USED ONLY FOR PATIENTS ON STABLE ANTICOAGULANT THERAPY. CHEMISTRY POC V Temp 37.0 Abby 11/29 NA [facility] CHEMISTRY POC V Ion Ca 1.16 [...] Troponin-I 0.05 ng/mL 0.00 - 11/29 Normal [facility] 0.40 Medical Center CHEMISTRY Total CK 46 unit/L 12 - 191 11/29 Normal [facility] CHEMISTRY Troponin-T null 0.000 - 11/29 Normal [facility] 0.100 Medical Center CHEMISTRY Ketone 4.63 [...] CHEMISTRY POC A Source ART 11/29 NA [facility] CHEMISTRY POC A O2 Sat 98.0 % 95.0 - 11/29 Normal [facility] 100.0 [facility] CHEMISTRY POC A BE -11 mMol/L -2-2 - 2 11/29 LOW [facility] CHEMISTRY POC A HCO3 14 mMol/L 22 - 11/29 LOW [facility] CHEMISTRY POC A PCO2 26 mm[Hg] 35 - 45 11/29 CRIT [facility] CHEMISTRY POC A PO2 115 mm[Hg] 80 - 100 11/29 HI [facility] CHEMISTRY POC A pH 7.33 7.35 - 11/29 LOW [facility] 7.45 [facility] BACTERIAL - MRSA by PCR Positive 1, 2 11/29 ABN 2Interpretive Data: Interpretive Data: The [employer] MRSA assay is a qualitative test for the direct detection of nasal colonization with methicillin-resistant Staphylococcus aureus (MRSA) to aid [facility] in the prevention and control of [...] by the [facility] within the [facility]. The [facility] Labor atory is authorized under the Clinical Laboratory Improvement Amendment of 1988 (CLIA-88) to perform high complexity testing. CHEMISTRY Temp Art 37.0 Abby 11/29 NA [facility] CHEMISTRY O2 Sat Art 96.6 % 95.0 - 11/29 Normal [facility] 100.0 [facility] CHEMISTRY pO2 Art 96 mm[Hg] 80 - 100 11/29 Normal [facility] CHEMISTRY pCO2 Art 25 mm[Hg] 35 - 45 11/29 CRIT 15Result Comment: [facility] Result(s) called to jose rodriguez at _11/29/2012 12:25:56 CDT bykak_. Read back OK. CHEMISTRY BE Art -12 mMol/L -2-2 - 2 11/29 LOW [facility] CHEMISTRY HCO3 Art 12 mMol/L - 11/29 LOW [facility] CHEMISTRY pH Art 7.30 7.35 - 11/29 LOW [facility] 7.45 [facility] CHEMISTRY A/G Ratio 0.8 0.7 - 1.6 11/29 Normal [facility] CHEMISTRY Globulin 4.0 g/dL 2.0 - 4.0 11/29 Normal [facility] CHEMISTRY AST 17 unit/L 0 - 37 11/29 Normal [facility] CHEMISTRY Bili Total 0.8 mg/dL 0.2 - 1.3 11/29 Normal [facility] CHEMISTRY B/C Ratio 14 - 11/29 Normal [facility] CHEMISTRY Total Protein 7.4 g/dL 6.4 - 8.4 11/29 Normal [facility] CHEMISTRY ALT 22 unit/L 0 - 65 11/29 Normal [facility] CHEMISTRY Albumin Lvl 3.4 g/dL 3.5 - 5.0 11/29 LOW [facility] CHEMISTRY Alk Phos 126 unit/L 39 - 136 11/29 Normal [facility] CHEMISTRY Troponin-I null 0.00 - 11/29 Normal [facility] 0.40 [facility] CHEMISTRY Lipase Lvl 70 unit/L 73 - 393 11/29 LOW [facility] CHEMISTRY B/C Ratio 10 6 - 11/29 Normal [facility] HEMATOLOGY Hypochrom Slight None Seen 11/29 Normal [facility] (11/28/2012 21:00:20) Center HEMATOLOGY Polychrom Slight None Seen 11/29 Normal [facility] (11/28/2012 21:00:20) Center HEMATOLOGY Anisocyte 1+ None Seen 11/29 ABN Medical *ABN* Center (11/28/2012 21:00:20) HEMATOLOGY Large Plt Slight None Seen 11/29 [facility] Medical *ABN* Center (11/28/2012 21:00:20) HEMATOLOGY Eosinophils # 0.2 K/CMM 0.0 - 0.5 11/29 Normal [facility] CHEMISTRY U Preg Negative Negative 11/29 Normal [facility] (11/28/2012 20:55:00) Center URINALYSIS UA Blood Negative Negative 11/29 Normal [facility] (11/28/2012 20:55:00) [place] URINALYSIS UA Bili Small 6 Negative 11/29 ABN 6Result Comment: Interpret positive bilirubin results with caution. Confirmatory testing not possible due to the unavailability of reagent. Correlation with Medical *ABN* serum chemistry results recommended. [place] (11/28/2012 20:55:00) URINALYSIS UA Protein Negative Negative 11/29 Normal [facility] (11/28/2012 20:55:00) [place] URINALYSIS Micro? Not Indicated 11/29 Normal [facility] (11/28/2012 20:55:00) [place] URINALYSIS UA Glucose Negative Negative 11/29 Normal [facility] (11/28/2012 20:55:00) [place] URINALYSIS UA Ketones 40 mg/dL Negative 11/29 ABN Medical *ABN* [place] (11/28/2012 20:55:00) URINALYSIS UA Leuk Est Negative Negative 11/29 Normal [facility] (11/28/2012 20:55:00) [place] URINALYSIS UA 0.2 EU/dL 0.1 - 1.0 11/29 Normal [facility] Urobilinogen /2012 [facility] URINALYSIS UA Nitrite Negative Negative 11/29 Normal [facility] (11/28/2012 20:55:00) [place] URINALYSIS UA Spec Grav 1.010 <=1.030 11/29 Normal [facility] URINALYSIS UA pH 6.0 5.0 - 8.0 11/29 Normal [facility] URINALYSIS UA Color Yellow Yellow 11/29 NA Medical *NA* [place] (11/28/2012 20:55:00) URINALYSIS UA Turbidity Clear Clear 11/29 Normal Medical (11/28/2012 20:55:00) Center BEDSIDE Comment1 Notify 11/17 NA [facility] GLUCOSE RN/ /2012 Medical TESTING Center BEDSIDE Gluc POC 219 mg/dL 70 - 99 11/17 HI 1Interpretive [facility] Upper Reportable Limit: 200 mg/dL. BEDSIDE Gluc POC 255 mg/dL 70 - 99 11/17 [place] 2Interpretive [facility] GLUCOSE [place] Data: Medical TESTING Center Upper Reportable Limit: 200 mg/dL. BEDSIDE Comment1 Notify 11/17 NA [facility] GLUCOSE RN/MD /2012 [facility] CHEMISTRY Troponin-T null 0.000 - 11/17 Normal [facility] 0.100 [facility] CHEMISTRY Troponin-I null 0.00 - 11/17 Normal [facility] 0.40 [facility] CHEMISTRY Total CK 52 unit/L 12 - 191 11/17 Normal [facility] CHEMISTRY eGFR 109 11/17 NA 4Result Comment: The eGFR is calculated using the CKD-EPI formula. In most young, healthy individuals the eGFR will be > 90 mL/min/1.73m2. The eGFR declines with age. An eGFR of 60-89 may be normal in [facility] mL/min/1.7 some populations, particularly the elderly, for whom the CKD-EPI formula has not been extensively validated. Use of the eGFR is not recommended in the following populations: Medical [facility] Individuals with unstable creatinine concentrations, including [...] 7.7 mg/dL 8.5 - 10.5 11/17 LOW [facility] CHEMISTRY AGAP 16.2 meq/L 10.0 - 11/17 Normal [facility] 20.0 [facility] CHEMISTRY Chloride Lvl 100 meq/L 95 - 109 11/17 Normal [facility] CHEMISTRY Potassium Lvl 4.2 meq/L 3.5 - 5.1 11/17 Normal [facility] CHEMISTRY Sodium Lvl 134 meq/L 135 - 145 11/17 LOW [facility] CHEMISTRY CO2 22 meq/L 24 - 32 11/17 [facility] CHEMISTRY Creatinine 0.6 mg/dL 0.5 - 1.4 11/17 Normal [facility] CHEMISTRY BUN 4 mg/dL 7 - 22 11/17 [facility] CHEMISTRY Glucose Lvl 237 mg/dL 70 - 99 11/17 [place] 6Interpretive Data: Adult reference range values reflect the clinical guidelines of the [place] [employer]. Medical Center CHEMISTRY Magnesium Lvl 1.4 mg/dL 1.8 - 2.4 11/17 LOW [facility] CHEMISTRY Phosphorus 3.4 mg/dL 2.5 - 4.5 11/17 Normal [facility] HEMATOLOGY Segs 60.3 % 45.0 - 11/17 Normal [facility] 75.0 [facility] HEMATOLOGY Monocytes 9.0 % 2.0 - 12.0 11/17 Normal [facility] HEMATOLOGY Lymphocytes 27.8 % 20.0 - 11/17 Normal [facility] 40.0 [facility] HEMATOLOGY Eosinophils 2.1 % 0.0 - 4.0 11/17 Normal [facility] HEMATOLOGY Lymphocytes # 2.3 K/CMM 1.0 - 5.5 11/17 Normal [facility] HEMATOLOGY Eosinophils # 0.2 K/CMM 0.0 - 0.5 11/17 Normal [facility] HEMATOLOGY Basophils 0.8 % 0.0 - 1.0 11/17 Normal [facility] HEMATOLOGY Segs-Bands # 5.1 K/CMM 1.5 - 8.1 11/17 Normal [facility] HEMATOLOGY Basophils # 0.1 K/CMM 0.0 - 0.2 11/17 Normal [facility] HEMATOLOGY Monocytes # 0.8 K/CMM 0.0 - 0.8 11/17 Normal [facility] HEMATOLOGY Microcyte 1+ None Seen 11/17 ABN Medical *ABN* Center (11/17/2012 04:33:00) HEMATOLOGY INR 1.09 0.85 - 11/17 Normal 8Interpretive Data: RECOMMENDED RANGES FOR PROTIME INR: [facility] . 2.0-3.0 for most medical and surgical thromboembolic states. Medical 2.5-3.5 for artificial heart valves and recurrent embolism. Center INR SHOULD BE USED ONLY FOR PATIENTS ON STABLE ANTICOAGULANT THERAPY. HEMATOLOGY PT 14.3 s 12.0 - 11/17 Normal [facility] 14.7 [facility] HEMATOLOGY PTT 31.8 s 22.9 - 11/17 Normal 9Interpretive [facility] 35.8 Data: [facility] Range: 57 - 92 Seconds HEMATOLOGY Platelet 177 K/CMM 133 - 450 11/17 Normal [facility] HEMATOLOGY MPV 9.5 fL 7.4 - 10.4 11/17 Normal Medical [place] HEMATOLOGY MCH 24.5 pg 27.0 - 11/17 LOW [facility] 31.0 /2012 Medical [place] HEMATOLOGY RDW 18.9 % 11.5 - 11/17 HI [place] 14.5 /2012 Medical Center HEMATOLOGY MCHC 32.3 g/dL 32.0 - 11/17 Normal [facility] 36.0 /2012 Medical [place] HEMATOLOGY MCV 75.9 fL 81.0 - 11/17 [facility] 99.0 /2012 Medical [place] HEMATOLOGY RBC 3.67 M/CMM 4.20 - 11/17 [facility] 5.40 /2012 Medical Center HEMATOLOGY WBC 8.4 K/CMM 3.7 - 10.4 11/17 Normal [facility] HEMATOLOGY Hct 27.9 % 36.0 - 11/17 [facility] 48.0 /2012 [facility] HEMATOLOGY Hgb 9.0 g/dL 12.0 - 11/17 [facility] 16.0 [facility] CHEMISTRY Troponin-T null 0.000 - 11/17 Normal [facility] 0.100 [facility] CHEMISTRY Troponin-I null 0.00 - 11/17 Normal [facility] 0.40 [facility] CHEMISTRY Total CK 76 unit/L 11/17 Normal [facility] CHEMISTRY CK MB Index 0.8 0.0 - 2.5 11/17 Normal [facility] CHEMISTRY CK MB 0.6 ng/mL 0.5 - 3.6 11/17 Normal [facility] BEDSIDE Gluc POC 305 mg/dL 70 - 99 11/17 [place] 3Interpretive [facility] GLUCOSE [place] Data: Medical TESTING Center Upper Reportable Limit: 200 mg/dL. BEDSIDE Comment1 Notify 11/17 NA [facility] GLUCOSE RN/MD /2012 Medical TESTING Center CHEMISTRY Magnesium Lvl 1.4 mg/dL 1.8 - 2.4 11/16 LOW [facility] CHEMISTRY Total CK 27 unit/L 11/16 Normal [facility] CHEMISTRY Troponin-T null 0.000 - 11/16 Normal [facility] 0.100 [facility] CHEMISTRY Troponin-I null 0.00 - 11/16 Normal [facility] 0.40 [facility] Center CHEMISTRY B/C Ratio 6 6 - 25 11/16 Normal [facility] CHEMISTRY A/G Ratio 1.0 0.7 - 1.6 11/16 Normal [facility] CHEMISTRY AGAP 18.6 meq/L 10.0 - 11/16 Normal [facility] 20.0 [facility] CHEMISTRY Globulin 3.5 g/dL 2.0 - 4.0 11/16 Normal [facility] CHEMISTRY eGFR 67 11/16 NA 5Result Comment: The eGFR is calculated using the CKD-EPI formula. In most young, healthy individuals the eGFR will be > 90 mL/min/1.73m2. The eGFR declines with age. An eGFR of 60-89 may be normal in [facility] mL/min/1.7 some populations, particularly the elderly, for whom the CKD-EPI formula has not been extensively validated. Use of the eGFR is not recommended in the following populations: [address] Individuals with unstable creatinine concentrations, including [...] 3.4 g/dL 3.5 - 5.0 11/16 LOW [facility] CHEMISTRY Alk Phos 88 unit/L 39 - 136 11/16 Normal [facility] CHEMISTRY Glucose Lvl 256 mg/dL 70 - 99 11/16 [place] 7Interpretive Data: Adult reference range values reflect the clinical guidelines of the [place] [employer]. [facility] CHEMISTRY BUN 6 mg/dL 7 - 22 11/16 LOW [facility] CHEMISTRY Sodium Lvl 136 meq/L 135 - 145 11/16 Normal [facility] CHEMISTRY Chloride Lvl 99 meq/L 95 - 109 11/16 Normal [facility] CHEMISTRY Creatinine 1.0 mg/dL 0.5 - 1.4 11/16 Normal [facility] CHEMISTRY Potassium Lvl 3.6 meq/L 3.5 - 5.1 11/16 Normal [facility] CHEMISTRY CO2 22 meq/L 24 - 32 11/16 LOW [facility] CHEMISTRY Calcium Lvl 8.8 mg/dL 8.5 - 10.5 11/16 Normal [facility] CHEMISTRY Bili Total 0.6 mg/dL 0.2 - 1.3 11/16 Normal [facility] CHEMISTRY Total Protein 6.9 g/dL 6.4 - 8.4 11/16 Normal [facility] CHEMISTRY AST 52 unit/L 0 - 37 11/16 HI [facility] CHEMISTRY ALT 52 unit/L 0 - 65 11/16 Normal [facility] CHEMISTRY Phosphorus 1.6 mg/dL 2.5 - 4.5 11/16 LOW [facility] HEMATOLOGY Lymphocytes 16.8 % 20.0 - 11/16 LOW [facility] 40.0 [facility] HEMATOLOGY Segs 72.3 % 45.0 - 11/16 Normal [facility] 75. [facility] HEMATOLOGY Large Plt Slight None Seen 11/16 [facility] (11/16/2012 13:17:00) HEMATOLOGY Elliptocyte Slight None Seen 11/16 [facility] (11/16/2012 13:17:00) HEMATOLOGY Polychrom Slight None Seen 11/16 Normal [facility] (11/16/2012 13:17:00) Center HEMATOLOGY Microcyte 1+ None Seen 11/16 [facility] (11/16/2012 13:17:00) HEMATOLOGY Basophils # 0.1 K/CMM 0.0 - 0.2 11/16 Normal [facility] HEMATOLOGY Hypochrom Slight None Seen 11/16 [facility] (11/16/2012 13:17:00) Center HEMATOLOGY Anisocyte 1+ None Seen 11/16 [facility] (11/16/2012 13:17:00) HEMATOLOGY Schistocyte Occasional 11/16 NA [facility] HEMATOLOGY Monocytes 8.6 % 2.0 - 12.0 11/16 Normal [facility] HEMATOLOGY Eosinophils 1.5 % 0.0 - 4.0 11/16 Normal [facility] HEMATOLOGY Monocytes # 1.1 K/CMM 0.0 - 0.8 11/16 HI [facility] HEMATOLOGY Segs-Bands # 9.7 K/CMM 1.5 - 8.1 11/16 [facility] Medical Center HEMATOLOGY Eosinophils # 0.2 [...] HEMATOLOGY RDW 18.0 % 11.5 - 11/16 [facility] 14.5 /2012 Medical Center HEMATOLOGY Hct 32.4 % 36.0 - 11/16 LOW [facility] 48.0 /2012 Medical Center HEMATOLOGY MCHC 33.3 g/dL 32.0 - 11/16 Normal [facility] 36.0 /2012 Medical Center HEMATOLOGY MCV 75.4 fL 81.0 - 11/16 LOW [facility] 99.0 /2012 Medical Center HEMATOLOGY MCH 25.1 pg 27.0 - 11/16 [facility] 31.0 /2012 Medical Center HEMATOLOGY Platelet 230 K/CMM 133 - 450 11/16 Normal [facility] HEMATOLOGY MPV 9.9 fL 7.4 - 10.4 11/16 Normal [facility] BEDSIDE Comment1 Notify 11/14 NA [facility] GLUCOSE MARTÍNEZ/ /2012 Medical TESTING Center BEDSIDE Gluc POC 266 mg/dL 11/14 [place] 2Interpretive [facility] GLUCOSE [facility] Data: Medical TESTING Center Upper Reportable Limit: 200 mg/dL. BEDSIDE Comment1 Notify 11/14 NA [facility] GLUCOSE MARTÍNZE/ /2012 Medical TESTING Center BEDSIDE Gluc POC 140 mg/dL - 11/14 [place] 3Interpretive [facility] GLUCOSE [facility] Data: Medical TESTING Center Upper Reportable Limit: 200 mg/dL. BEDSIDE Comment1 Notify 11/14 NA [facility] GLUCOSE MARTÍNEZ/ /2012 Medical TESTING Center BEDSIDE Gluc POC 201 mg/dL 70 - 11/14 [place] 4Interpretive [facility] GLUCOSE [facility] Data: Medical TESTING Center Upper Reportable Limit: 200 mg/dL. CHEMISTRY A/G Ratio 0.9 0.7 - 1.6 11/14 Normal [facility] CHEMISTRY AST 41 unit/L 0 - 37 11/14 HI [facility] CHEMISTRY eGFR 104 11/14 NA 6Result Comment: The eGFR is calculated using the CKD-EPI formula. In most young, healthy individuals the eGFR will be > 90 mL/min/1.73m2. The eGFR declines with age. An eGFR of 60-89 may be normal in [facility] mL/min/1.7 /2012 some populations, particularly the elderly, for whom the CKD-EPI formula has not been extensively validated. Use of the eGFR is not recommended in the following populations: [address] Individuals with unstable creatinine concentrations, including [...] 2.9 g/dL 3.5 - 5.0 11/14 LOW [facility] CHEMISTRY Alk Phos 84 unit/L 39 - 136 11/14 Normal [facility] CHEMISTRY BUN 3 mg/dL 7 - 22 11/14 LOW [facility] CHEMISTRY Creatinine 0.7 mg/dL 0.5 - 1.4 11/14 Normal [facility] CHEMISTRY Sodium Lvl 136 meq/L 135 - 145 11/14 Normal [facility] CHEMISTRY Total Protein 6.3 g/dL 6.4 - 8.4 11/14 LOW [facility] CHEMISTRY ALT 51 unit/L 0 - 65 11/14 Normal [facility] CHEMISTRY Potassium Lvl 3.7 meq/L 3.5 - 5.1 11/14 Normal [facility] CHEMISTRY Chloride Lvl 101 meq/L 95 - 109 11/14 Normal [facility] CHEMISTRY Glucose Lvl 210 mg/dL 70 - 99 11/14 [place] 9Interpretive Data: Adult reference range values reflect the clinical guidelines of the [place] [employer]. [facility] Center CHEMISTRY AGAP 15.7 meq/L 10.0 - 11/14 Normal [place] 20.0 [facility] CHEMISTRY B/C Ratio 4 6 - 25 11/14 LOW [facility] CHEMISTRY Globulin 3.4 g/dL 2.0 - 4.0 11/14 Normal [facility] CHEMISTRY CO2 23 meq/L 24 - 32 11/14 LOW [facility] CHEMISTRY Bili Total 0.4 mg/dL 0.2 - 1.3 11/14 Normal [facility] CHEMISTRY Calcium Lvl 8.5 mg/dL 8.5 - 10.5 11/14 Normal [facility] CHEMISTRY Phosphorus 3.6 mg/dL 2.5 - 4.5 11/14 Normal [facility] CHEMISTRY Magnesium Lvl 1.5 mg/dL 1.8 - 2.4 11/14 LOW [facility] CHEMISTRY Ca Norm mgdL 3.52 mg/dL 4.65 - 11/14 LOW [facility] 5. [facility] CHEMISTRY Ca Ion mgdL 3.32 mg/dL 4.65 - 11/14 CRIT [place] 5. [facility] CHEMISTRY Ca Ion 0.83 1.16 - 11/14 CRIT 15Result [place] mMol/L 1. Comment: [facility] Result(s) called to Arlin Rose at 11/14/2012 00:23:56 CDT_ by_tvs. Read back OK. CHEMISTRY Ca Norm 0.88 1.16 - 11/14 CRIT [place] mMol/L 1. [facility] HEMATOLOGY Platelet 221 K/CMM 133 - 450 11/14 Normal [facility] HEMATOLOGY RDW 19.0 % 11.5 - 03 HI [place] 14.5 /2012 Medical Center HEMATOLOGY MCHC 32.4 g/dL 32.0 - 11/14 Normal [place] 36.0 [facility] HEMATOLOGY MCV 75.5 fL 81.0 - 11/14 LOW [place] 99.0 /2012 [facility] HEMATOLOGY Hct 35.5 % 36.0 - 11/14 LOW [place] 48.0 /2012 [facility] HEMATOLOGY Hgb 11.5 g/dL 12.0 - 11/14 LOW [place] 16.0 Medical [place] HEMATOLOGY MCH 24.5 pg 27.0 - 11/14 LOW [place] 31.0 [facility] HEMATOLOGY MPV 9.1 fL 7.4 - 10.4 11/14 Normal [facility] HEMATOLOGY RBC 4.70 M/CMM 4.20 - 03 Normal [place] 5.40 /2012 [facility] HEMATOLOGY WBC 8.6 K/CMM 3.7 - 10.4 11/14 Normal [facility] HEMATOLOGY Segs 53.3 % 45.0 - 11/14 Normal [facility] 75.0 /2012 [facility] HEMATOLOGY Microcyte 1+ None Seen 11/14 ABN [facility] *ABN* Center (11/13/2012 23:45:00) HEMATOLOGY Basophils # 0.1 K/CMM 0.0 - 0.2 11/14 Normal [facility] HEMATOLOGY Eosinophils # 0.2 K/CMM 0.0 - 0.5 11/14 Normal [facility] HEMATOLOGY Monocytes # 0.9 K/CMM 0.0 - 0.8 11/14 HI [facility] HEMATOLOGY Lymphocytes # 2.9 K/CMM 1.0 - 5.5 11/14 Normal [facility] HEMATOLOGY Monocytes 10.3 % 2.0 - 12.0 11/14 Normal [facility] HEMATOLOGY Lymphocytes 33.6 % 20.0 - 11/14 Normal [facility] 40.0 [facility] HEMATOLOGY Segs-Bands # 4.6 K/CMM 1.5 - 8.1 11/14 Normal [facility] HEMATOLOGY Basophils 0.7 % 0.0 - 1.0 11/14 Normal [facility] HEMATOLOGY Eosinophils 2.1 % 0.0 - 4.0 11/14 Normal [facility] CHEMISTRY Lipase Lvl 43 unit/L 73 - 393 11/13 LOW [facility] CHEMISTRY Amylase Lvl 14 unit/L 25 - 115 11/13 [facility] CHEMISTRY A/G Ratio 0.8 0.7 - 1.6 11/13 Normal [facility] CHEMISTRY AST 56 unit/L 0 - 37 11/13 HI [facility] CHEMISTRY Alk Phos 67 unit/L 39 - 136 11/13 Normal [facility] CHEMISTRY Globulin 2.9 g/dL 2.0 - 4.0 11/13 Normal [facility] CHEMISTRY Total Protein 5.3 g/dL 6.4 - 8.4 11/13 LOW [facility] Center CHEMISTRY Albumin Lvl 2.4 g/dL 3.5 - 5.0 11/13 LOW [facility] CHEMISTRY ALT 41 unit/L 0 - 65 11/13 Normal [facility] CHEMISTRY Bili Indirect 0.3 mg/dL 0.0 - 1.0 11/13 Normal [facility] CHEMISTRY Bili Direct 0.1 mg/dL 0.0 - 0.3 11/13 Normal [facility] CHEMISTRY Bili Total 0.4 mg/dL 0.2 - 1.3 11/13 Normal [facility] CHEMISTRY eGFR 137 11/13 NA 7Result Comment: The eGFR is calculated using the CKD-EPI formula. In most young, healthy individuals the eGFR will be > 90 mL/min/1.73m2. The eGFR declines with age. An eGFR of 60-89 may be normal in [facility] mL/min/1. some populations, particularly the elderly, for whom the CKD-EPI formula has not been extensively validated. Use of the eGFR is not recommended in the following populations: [address] Individuals with unstable creatinine concentrations, including [...] AGAP 17.3 meq/L 10.0 - 11/13 Normal [facility] 20.0 [facility] Center CHEMISTRY Calcium Lvl 6.7 mg/dL 8.5 - 10.5 11/13 CRIT 13Result Comment: [facility] Critical Center Result(s) called to tino gustafson at _11/13/2012 06:59:47 CDT bylg. Read back OK. CHEMISTRY CO2 17 meq/L 24 - 32 11/13 LOW [facility] Center CHEMISTRY Chloride Lvl 111 meq/L 95 [...] values reflect the clinical guidelines of the [place] [employer]. Medical Center CHEMISTRY Magnesium Lvl 1.3 mg/dL 1.8 - 2.4 11/13 LOW [facility] CHEMISTRY Phosphorus 2.8 mg/dL 2.5 - 4.5 11/13 Normal [facility] CHEMISTRY Ca Ion 1.01 1.16 - 11/13 [facility] [place] mMol/L 1. [facility] CHEMISTRY Ca Norm 1.07 1.16 - 11/13 [facility] mMol/L 1. [facility] Center CHEMISTRY Ca Norm mgdL 4.28 mg/dL 4.65 - 11/13 [facility] [place] . [facility] CHEMISTRY Ca Ion mgdL 4.04 mg/dL 4.65 - 11/13 [facility] 5.20 Medical Center HEMATOLOGY MCV 78.6 fL 81.0 - 11/13 [facility] [place] 99.0 /2012 Medical [place] HEMATOLOGY MPV 9.1 fL 7.4 - 10.4 11/13 Normal [facility] HEMATOLOGY MCHC 31.1 g/dL 32.0 - 11/13 [facility] [place] 36.0 Medical [place] HEMATOLOGY MCH 24.4 pg 27.0 - 11/13 [facility] [place] 31.0 Medical Center HEMATOLOGY Hct 29.4 % 36.0 - 03 [facility] [place] 48.0 /2012 Medical Center HEMATOLOGY RDW 19.1 % 11.5 - 0310 [facility] [place] 14.5 /2012 Medical Center HEMATOLOGY Platelet 192 K/CMM 133 - 450 11/13 Normal Medical [place] HEMATOLOGY Hgb 9.1 g/dL 12.0 - 03 [facility] [place] 16.0 Medical [place] HEMATOLOGY RBC 3.74 M/CMM 4.20 - 03 [facility] [place] 5.40 /2012 Medical Center HEMATOLOGY WBC 6.8 K/CMM 3.7 - 10.4 03 Normal MH [facility] HEMATOLOGY Plt Morph Normal 11/13 Normal Medical (11/13/2012 05:00:00) [place] HEMATOLOGY Atypical 0.0 % <=0.0 11/13 Normal [facility] Lymphs [facility] HEMATOLOGY RBC Morph Normal 11/13 Normal [facility] (11/13/2012 05:00:00) [place] HEMATOLOGY Eosinophils 2.0 % 0.0 - 4.0 11/13 Normal [facility] HEMATOLOGY Bands 0.0 % 0.0 - 11.0 11/13 Normal [facility] HEMATOLOGY Segs 51.0 % 45.0 - 11/13 Normal [place] 75.0 [facility] HEMATOLOGY Eosinophils # 0.1 K/CMM 0.0 - 0.5 11/13 Normal [facility] HEMATOLOGY Segs-Bands # 3.5 K/CMM 1.5 - 8.1 11/13 Normal [facility] HEMATOLOGY Monocytes 5.0 % 2.0 - 12.0 11/13 Normal [facility] HEMATOLOGY Lymphocytes 42.0 % 20.0 - 11/13 HI [facility] 40.0 [facility] HEMATOLOGY Monocytes # 0.3 K/CMM 0.0 - 0.8 11/13 Normal [facility] HEMATOLOGY Lymphocytes # 2.9 K/CMM 1.0 - 5.5 11/13 [facility]2012 [facility] INFECTIOUS C difficile Negative 1 Negative 11/13 Normal 1Interpretive Data: [employer] Clostridium difficile assay utilizes loop-mediated isothermal DNA amplification (LAMP) technology to detect a 204 bp region of the tcdA gene within the PaLoc gene [facility] segment present in all known toxigenic C. difficile strains. [facility] (11/12/2012 21:54:26) [place] The assay utilizes FDA cleared IVD reagents. Performance characteristics have been verified by the [facility] within the [facility]. The [facility] is authorized under the Clinical Laboratory Improvement Amendment of 1988 (CLIA-88) to perform high complexity testing. CHEMISTRY Total CK 25 unit/L 12 - 191 11/12 Normal [facility] CHEMISTRY Troponin-I null 0.00 - 11/12 Normal [facility] 0.40 [facility] CHEMISTRY eGFR 88 11/12 NA 8Result Comment: The eGFR is calculated using the CKD-EPI formula. In most young, healthy individuals the eGFR will be > 90 mL/min/1.73m2. The eGFR declines with age. An eGFR of 60-89 may be normal in [facility] mL/min/1. some populations, particularly the elderly, for whom the CKD-EPI formula has not been extensively validated. Use of the eGFR is not recommended in the following populations: [facility] Individuals with unstable creatinine concentrations, including [...] AGAP 13.7 meq/L 10.0 - 11/12 Normal [facility] 20.0 [facility] CHEMISTRY Calcium Lvl 8.5 mg/dL 8.5 - 10.5 11/12 Normal [facility] CHEMISTRY CO2 25 meq/L 24 - 32 11/12 Normal [facility] CHEMISTRY Potassium Lvl 3.7 meq/L 3.5 - 5.1 11/12 Normal [facility]2012 [facility] CHEMISTRY Sodium Lvl 138 meq/L 135 - 145 11/12 Normal [facility] CHEMISTRY Chloride Lvl 103 meq/L 95 - 109 11/12 Normal [facility] CHEMISTRY Creatinine 0.8 mg/dL 0.5 - 1.4 11/12 Normal [facility] CHEMISTRY BUN 5 mg/dL 7 - 22 11/12 LOW [facility] CHEMISTRY Glucose Lvl 40 mg/dL 70 - 99 11/12 CRIT 12Interpretive Data: Adult reference range values reflect the clinical guidelines of the [place] [employer]. [facility] CHEMISTRY Ca Norm mgdL 4.20 mg/dL 4.65 - 11/12 LOW [facility] 01.23 [facility] CHEMISTRY Ca Norm 1.05 1.16 - 11/12 LOW [place] mMol/L 10.05 [facility] CHEMISTRY Ca Ion mgdL 4.00 mg/dL 4.65 - 11/12 LOW [facility] 01.23 [facility] CHEMISTRY Ca Ion 1.00 1.16 - 11/12 LOW [facility] [place] mMol/L 10.052013 [facility] CHEMISTRY Magnesium Lvl 1.9 mg/dL 1.8 - 2.4 11/12 Normal [facility] CHEMISTRY Phosphorus 3.2 mg/dL 2.5 - 4.5 11/12 Normal [facility] HEMATOLOGY MCHC 32.0 g/dL 32.0 - 11/12 Normal [facility] 36.0 /2012 [facility] HEMATOLOGY MCH 24.1 pg 27.0 - 11/12 LOW [facility] 31.0 [facility] HEMATOLOGY MCV 75.3 fL 81.0 - 03 LOW [facility] 99.0 /2012 [facility] HEMATOLOGY WBC 9.2 K/CMM 3.7 - 10.4 11/12 Normal [facility] HEMATOLOGY Platelet 233 K/CMM 133 - 450 11/12 Normal [facility] HEMATOLOGY MPV 9.1 fL 7.4 - 10.4 11/12 Normal [facility] HEMATOLOGY RDW 19.0 % 11.5 - 03 HI [facility] 14.5 [facility] HEMATOLOGY RBC 4.19 M/CMM 4.20 - 11/12 [facility] 5.40 /2012 [facility] HEMATOLOGY Hgb 10.1 g/dL 12.0 - 11/12 LOW [facility] 16.0 [facility] HEMATOLOGY Hct 31.6 % 36.0 - 03 [facility] 48.0 /2012 [facility] HEMATOLOGY Hypochrom Slight None Seen 11/12 Normal [facility] (11/12/2012 00:19:00) Center HEMATOLOGY Large Plt Slight None Seen 11/12 ABN Medical *ABN* Center (11/12/2012 00:19:00) HEMATOLOGY Atypical 0.0 % <=0.0 11/12 Normal [facility] Lymphs [facility] HEMATOLOGY Basophils 1.0 % 0.0 - 1.0 11/12 Normal [facility] HEMATOLOGY Lymphocytes 39.0 % 20.0 - 03 [facility] 40.0 [facility] HEMATOLOGY Bands 0.0 % 0.0 - 11.0 11/12 Normal [facility] HEMATOLOGY Eosinophils 2.0 % 0.0 - 4.0 11/12 Normal [facility] HEMATOLOGY Monocytes 6.0 % 2.0 - 12.0 11/12 Normal [facility] HEMATOLOGY Segs 52.0 % 45.0 - 03 Normal [place] 75.0 [facility] HEMATOLOGY Basophils # 0.1 K/CMM 0.0 - 0.2 11/12 Normal 2012 [facility] HEMATOLOGY Monocytes # 0.6 K/CMM 0.0 - 0.8 11/12 Normal [facility] HEMATOLOGY Lymphocytes # 3.6 K/CMM 1.0 - 5.5 11/12 Normal 2012 [facility] HEMATOLOGY Segs-Bands # 4.8 K/CMM 1.5 - 8.1 11/12 Normal [facility] HEMATOLOGY Eosinophils # 0.2 K/CMM 0.0 - 0.5 11/12 Normal 2012 [facility] HEMATOLOGY Microcyte 1+ None Seen 11/11 [facility] *[facility]* [place] (11/11/2012 03:41:00) HEMATOLOGY Basophils # 0.1 K/CMM 0.0 - 0.2 11/11 Normal [facility] HEMATOLOGY Basophils 0.7 % 0.0 - 1.0 11/11 Normal [facility] HEMATOLOGY Microcyte 1+ None Seen 11/09 [facility]* [place] (11/09/2012 05:12:00) URINALYSIS UA pH 5.0 5.0 - 8.0 11/08 Normal [facility] URINALYSIS UA Protein 20 mg/dL Negative 11/08 [facility]* [place] (11/07/2012 20:54:00) URINALYSIS UA Turbidity Slight Clear 11/08 [facility]* [place] (11/07/2012 20:54:00) URINALYSIS UA Spec Grav 1.010 <=1.030 11/08 Normal [facility] URINALYSIS UA Color Yellow Yellow 11/08 [facility] [place] (11/07/2012 20:54:00) URINALYSIS UA Bacteria Moderate /HPF None Seen 11/08 [facility]* [place] (11/07/2012 20:54:00) URINALYSIS UA Mucus Few /LPF None Seen 11/08 [facility] [place] (11/07/2012 20:54:00) URINALYSIS UA WBC null 0 - 5 11/08 [facility] URINALYSIS UA RBC 4 /HPF 0 - 2 11/08 [facility] URINALYSIS UA Sq Epi Moderate /LPF Few 11/08 [facility] *ABN* Center (11/07/2012 20:54:00) URINALYSIS UA Leuk Est Large Negative 11/08 [facility] *ABN* Center (11/07/2012 20:54:00) URINALYSIS UA Blood Trace Negative 11/08 [facility] *ABN* [place] (11/07/2012 20:54:00) URINALYSIS UA Nitrite Negative Negative 11/08 Normal [facility] (11/07/2012 20:54:00) Center URINALYSIS UA Ketones 40 mg/dL Negative 11/08 [facility] [place] (11/07/2012 20:54:00) URINALYSIS UA Bili Negative Negative 11/08 [facility] *NA* Center (11/07/2012 20:54:00) URINALYSIS Micro? Performed 11/08 NA [facility] *NA* Center (11/07/2012 20:54:00) URINALYSIS UA <=1.0 0.1 - 1.0 11/08 [facility] Urobilinogen mg/dL Medical
*NA*< Center br/>(11/07 20:54:00) <sup> </sup> URINALYSIS UA Glucose >=1000mg/d 11/08 [facility] URINALYSIS UA Hyal Cast 37 /LPF 0 - 2 11/08 [facility] Center URINALYSIS UA Ketones 40 mg/dL Negative 11/07 [facility] *ABN* Center (11/07/2012 06:24:57) CHEMISTRY Hgb A1C 8.2 % 11/07 NA 14Interpretive Data: HbA1C% eAG( mg/dL) Interpretation 6.0 126 Very good control [facility] 6.5 140 Very good control [place] 7.0 154 Good Control 7.5 169 Good Control 8.0 183 Marginal Control, take action to lower 8.5 197 Marginal Control, take action to lower 9.0 212 Poor Control, take action to lower 9.5 226 Poor Control, take action to lower 10.0 240 Poor Control, take action to lower CHEMISTRY Ketone 2.20 <=0.27 11/06 HI [place] Quantitative mmol/L /2012 Medical [place] CHEMISTRY U Osmolality 207 300 - 800 11/06 LOW [facility] mOsm/kg Medical [place] CHEMISTRY POC A %FIO2 21.0 % 18.0 - 03 Normal [facility] 100.0 Medical [place] CHEMISTRY POC A LA 0.9 mMol/L 0.5 - 2.2 11/06 Normal [facility] CHEMISTRY POC A Glu 281 mg/dL 70 - 99 11/06 [facility] CHEMISTRY POC A Temp 37.0 Abby 11/06 NA [facility] CHEMISTRY POC A Source ART 11/06 [facility] CHEMISTRY POC A pH 7.45 7.35 - 11/06 Normal [facility] 7.45 [facility] CHEMISTRY POC A HCO3 24 mMol/L 22 - 26 11/06 Normal [facility] CHEMISTRY POC A PCO2 35 mm[Hg] 35 - 45 11/06 Normal [facility] CHEMISTRY POC A PO2 85 mm[Hg] 80 - 100 11/06 Normal [facility] CHEMISTRY POC A BE 0 mMol/L -2-2 - 2 11/06 Normal [facility] CHEMISTRY POC A O2 Sat 97.0 % 95.0 - 11/06 [facility] 100.0 [facility] CHEMISTRY POC A Na 123 meq/L 135 - 145 11/06 LOW [facility] CHEMISTRY POC A Hct 31.0 % 36.0 - 11/06 [facility] 48.0 [facility] CHEMISTRY POC A Ca Ion 1.11 1.16 - 03 [facility] mMol/L 1.30 [facility] CHEMISTRY POC A K 3.7 meq/L 3.5 - 5.1 11/06 Normal [facility] CHEMISTRY POC A BE -4 mMol/L -2-2 - 2 11/06 LOW [facility] CHEMISTRY POC A HCO3 20 mMol/L 22 - 26 11/06 LOW [facility] CHEMISTRY POC A Source ART 11/06 NA [facility] CHEMISTRY POC A Temp 37.0 Abby 11/06 NA [facility] CHEMISTRY POC A pH 7.42 7.35 - 03/03 Normal [facility] 7.45 /2012 [facility] CHEMISTRY POC A PO2 81 mm[Hg] 80 - 100 11/06 Normal [facility] CHEMISTRY POC A O2 Sat 96.0 % 95.0 - 11/06 Normal [facility] 100.0 [facility] CHEMISTRY POC A PCO2 31 mm[Hg] 35 - 45 11/06 LOW [facility] CHEMISTRY POC A %FIO2 21.0 % 18.0 - 03 Normal [facility] 100.0 /2012 [facility] Microbiolog Culture: 11/06 [facility] y Urine /2012 [facility] CHEMISTRY Troponin-I null 0.00 - 11/06 Normal [facility] 0.40 /2012 [facility] CHEMISTRY Troponin-T null 0.000 - 11/06 Normal [facility] 0.100 /2012 [facility] CHEMISTRY Total CK 48 unit/L 12 - 191 11/06 Normal [facility] URINALYSIS UA <=1.0 0.1 - 1.0 11/06 [facility] Urobilinogen mg/dL Medical
*NA*< Center br/>(11/06 03:15:40) <sup> </sup> URINALYSIS UA Leuk Est Large Negative 11/06 [facility] *ABN* Center (11/06/2012 03:15:40) URINALYSIS UA Sq Epi Moderate /LPF Few 11/06 [facility] *ABN* Center (11/06/2012 03:15:40) URINALYSIS UA Mucus Few /LPF None Seen 11/06 [facility] *NA* Center (11/06/2012 03:15:40) URINALYSIS UA Nitrite Negative Negative 11/06 Normal [facility] (11/06/2012 03:15:40) Center URINALYSIS UA Bacteria Occasional /HPF None Seen 11/06 [facility] *NA* Center (11/06/2012 03:15:40) URINALYSIS UA WBC 67 /HPF 0 - 5 11/06 [place] [facility] Center URINALYSIS UA Blood Negative Negative 11/06 Normal [facility] (11/06/2012 03:15:40) Center URINALYSIS UA Bili Negative Negative 11/06 [facility] Medical *NA* Center (11/06/2012 03:15:40) URINALYSIS UA Ketones 60 mg/dL Negative 11/06 ABN [facility] *ABN* Center (11/06/2012 03:15:40) URINALYSIS UA pH 5.0 5.0 - 8.0 11/06 Normal [facility] URINALYSIS UA Glucose >=1000 mg/dL Negative 11/06 [facility] *ABN* Center (11/06/2012 03:15:40) URINALYSIS UA Spec Grav 1.014 <=1.030 11/06 Normal [facility] URINALYSIS UA Protein Negative mg/dL Negative 11/06 Normal Medical (11/06/2012 03:15:40) Center URINALYSIS UA Turbidity Slight Clear 11/06 [facility] *ABN* Center (11/06/2012 03:15:40) URINALYSIS UA Color Yellow Yellow 11/06 NA [facility] *NA* Center (11/06/2012 03:15:40) CHEMISTRY Troponin-I 0.02 ng/mL 0.00 - 11/06 Normal [facility] 0.40 [facility] CHEMISTRY Total CK 30 unit/L 12 - 191 11/06 Normal [facility] CHEMISTRY Troponin-T null 0.000 - 11/06 Normal [facility] 0.100 [facility] CHEMISTRY Ketone 3.00 <=0.27 11/06 [place] [facility] Quantitative mmol/L /2012 [facility] CHEMISTRY Lipase Lvl 89 unit/L 73 - 393 11/06 Normal [facility] CHEMISTRY Globulin 4.3 g/dL 2.0 - 4.0 11/06 [place] [facility] CHEMISTRY A/G Ratio 0.9 0.7 - 1.6 11/06 Normal [facility] CHEMISTRY B/C Ratio 7 6 - 25 11/06 Normal [facility] CHEMISTRY Albumin Lvl 3.7 g/dL 3.5 - 5.0 11/06 Normal [facility] CHEMISTRY Total Protein 8.0 g/dL 6.4 - 8.4 11/06 Normal [facility] CHEMISTRY ALT 62 unit/L 0 - 65 11/06 Normal [facility] CHEMISTRY Alk Phos 119 unit/L 39 - 136 11/06 Normal [facility] CHEMISTRY Bili Total 0.5 mg/dL 0.2 - 1.3 11/06 Normal [facility] CHEMISTRY AST 44 unit/L 0 - 37 11/06 [place] [facility] HEMATOLOGY Polychrom Slight None Seen 11/06 Normal Medical (11/05/2012 20:40:00) Center HEMATOLOGY Hypochrom Slight None Seen 11/06 Normal Medical (11/05/2012 20:40:00) Center HEMATOLOGY Bands 1.0 % 0.0 - 11.0 11/06 Normal [facility] HEMATOLOGY Anisocyte 1+ None Seen 11/06 ABN Medical *ABN* Center (11/05/2012 20:40:00) HEMATOLOGY Atypical 0.0 % <=0.0 11/[address] [facility] HEMATOLOGY Macrocyte 1+ None Seen 11/06 ABN [facility] *ABN* [place] (11/05/2012 20:40:00) HEMATOLOGY Plt Morph Normal 11/06 Normal [facility] (11/05/2012 20:40:00) Center HEMATOLOGY INR 0.98 0.85 - 11/06 Normal 16Interpretive Data: RECOMMENDED RANGES FOR PROTIME INR: [facility] . 2.0-3.0 for most medical and surgical thromboembolic states. Medical 2.5-3.5 for artificial heart valves and recurrent embolism. Center INR SHOULD BE USED ONLY FOR PATIENTS ON STABLE ANTICOAGULANT THERAPY. HEMATOLOGY PT 13.2 s 12.0 - 11/06 Normal [facility] 14.7 [facility] HEMATOLOGY PTT 26.4 s 22.9 - 11/06 Normal 17Interpretiv [facility] 35.8 /2012 e Data: [facility]arin Center Therapeutic Range: 57 - 92 Seconds BEDSIDE Gluc POC null 70 - 11/01 CRIT 3Interpretive [facility] GLUCOSE [facility] Data: Medical TESTING Center Upper Reportable Limit: 200 mg/dL. BEDSIDE Comment1 Notify 11/01 NA Fei GLUCOSE RN/MD /2012 Medical TESTING Center BEDSIDE Gluc POC 237 mg/dL - 99 10/31 HI 4Interpretive [facility] GLUCOSE [facility] Data: Medical TESTING Center Upper Reportable Limit: 200 mg/dL. BEDSIDE Gluc POC 357 mg/dL - 10/31 HI 5Interpretive [facility] GLUCOSE [facility] Data: [facility] Center Upper Reportable Limit: 200 mg/dL. BEDSIDE Comment1 Notify 10/31 NA [facility] GLUCOSE RN/MD /2012 Medical [facility] Center CHEMISTRY Phosphorus 4.2 mg/dL 2.5 - 4.5 10/31 Normal [facility] CHEMISTRY Ca Norm mgdL 4.64 mg/dL 4.65 - 10/31 LOW [facility] 5. [facility] CHEMISTRY Ca Ion mgdL 4.44 mg/dL 4.65 - 10/31 LOW [facility] 5. [facility] CHEMISTRY Ca Norm 1.16 1.16 - 10/31 Normal [facility] mMol/L 1. [facility] CHEMISTRY Ca Ion 1.11 1.16 - 10/31 LOW [facility] mMol/L . [facility] CHEMISTRY AGAP 16.9 meq/L 10.0 - 10/31 Normal [facility] 20.0 [facility] CHEMISTRY eGFR 67 10/31 NA 7Result Comment: The eGFR is calculated using the CKD-EPI formula. In most young, healthy individuals the eGFR will be > 90 mL/min/1.73m2. The eGFR declines with age. An eGFR of 60-89 may be normal in [facility] mL/min/1.7 some populations, particularly the elderly, for whom the CKD-EPI formula has not been extensively validated. Use of the eGFR is not recommended in the following populations: [place] [address] Center Individuals with unstable creatinine concentrations, including [...] 1.0 mg/dL 0.5 - 1.4 10/31 Normal [facility] Lvl [facility] Center CHEMISTRY Sodium Lvl 133 meq/L 135 - 145 10/31 LOW [facility] CHEMISTRY Calcium Lvl 8.3 mg/dL 8.5 - 10.5 10/31 [facility] CHEMISTRY Potassium Lvl 3.9 meq/L 3.5 - 5.1 10/31 Normal [facility] CHEMISTRY Chloride Lvl 94 meq/L 95 - 109 10/31 [facility] CHEMISTRY CO2 26 meq/L 24 - 32 10/31 Normal [facility] CHEMISTRY BUN 8 mg/dL 7 - 22 10/31 Normal [facility] CHEMISTRY Glucose Lvl 75 mg/dL 70 - 99 10/31 Normal 10Interpretive Data: Adult reference range values reflect the clinical guidelines of the [place] [employer]. [facility] CHEMISTRY Magnesium Lvl 1.9 mg/dL 1.8 - 2.4 10/31 Normal [facility] HEMATOLOGY MPV 9.4 fL 7.4 - 10.4 10/31 Normal [facility] HEMATOLOGY Hgb 9.7 g/dL 12.0 - 10/31 [facility] 16.0 [facility] HEMATOLOGY RBC 4.06 M/CMM 4.20 - 10/31 [facility] 5.40 [facility] HEMATOLOGY MCV 74.3 fL 81.0 - 10/31 [facility] 99.0 [facility] HEMATOLOGY Hct 30.2 % 36.0 - 10/31 [facility] 48.0 [facility] HEMATOLOGY MCHC 32.2 g/dL 32.0 - 10/31 [facility] 36.0 [facility] HEMATOLOGY MCH 23.9 pg 27.0 - 10/31 [facility] 31.0 [facility] HEMATOLOGY Platelet 199 K/CMM 133 - 450 10/31 Normal [facility] HEMATOLOGY RDW 17.5 % 11.5 - 10/31 [facility] 14.5 [facility] HEMATOLOGY WBC 9.4 K/CMM 3.7 - 10.4 10/31 [facility] HEMATOLOGY Lymphocytes # 2.7 K/CMM 1.0 - 5.5 10/31 [facility] HEMATOLOGY Basophils 0.6 % 0.0 - 1.0 10/31 [facility] HEMATOLOGY Segs-Bands # 5.2 K/CMM 1.5 - 8.1 10/31 [facility] HEMATOLOGY Microcyte 1+ None Seen 10/31 [facility] Medical *ABN* Center (10/31/2012 04:00:00) HEMATOLOGY Monocytes # 1.1 K/CMM 0.0 - 0.8 10/31 [facility] HEMATOLOGY Eosinophils # 0.3 K/CMM 0.0 - 0.5 10/31 Normal [facility] HEMATOLOGY Basophils # 0.1 K/CMM 0.0 - 0.2 10/31 Normal [facility] HEMATOLOGY Segs 55.2 % 45.0 - 10/31 Normal [facility] 75.0 [facility] HEMATOLOGY Monocytes 11.8 % 2.0 - 12.0 10/31 Normal [facility] HEMATOLOGY Lymphocytes 28.9 % 20.0 - 10/31 Normal [place] 40.0 [facility] HEMATOLOGY Eosinophils 3.5 % 0.0 - 4.0 10/31 Normal [facility] BEDSIDE Comment1 Notify 10/31 NA [facility] GLUCOSE RN/MD [facility] CHEMISTRY Ca Norm mgdL 4.92 mg/dL 4. - 10/30 Normal [facility] 5. [facility] CHEMISTRY Ca Ion mgdL 4.76 mg/dL 4.65 - 10/30 Normal [facility] 5. [facility] CHEMISTRY Ca Norm 1.23 1.16 - 10/30 Normal [facility] mMol/L 1. [facility] CHEMISTRY Ca Ion 1.19 1.16 - 10/30 Normal [facility] mMol/L 1. [facility] CHEMISTRY Phosphorus 3.8 mg/dL 2.5 - 4.5 10/30 Normal [facility] CHEMISTRY Magnesium Lvl 1.9 mg/dL 1.8 - 2.4 10/30 Normal [facility]2012 [facility] CHEMISTRY eGFR 88 10/30 NA 8Result Comment: The eGFR is calculated using the CKD-EPI formula. In most young, healthy individuals the eGFR will be > 90 mL/min/1.73m2. The eGFR declines with age. An eGFR of 60-89 may be normal in [facility] mL/min/1.7 some populations, particularly the elderly, for whom the CKD-EPI formula has not been extensively validated. Use of the eGFR is not recommended in the following populations: [place] [address] Center Individuals with unstable creatinine concentrations, including [...] values reflect the clinical guidelines of the [place] [employer]. Medical Center CHEMISTRY Creatinine 0.8 mg/dL 0.5 - 1.4 10/30 Normal [facility] Lvl [facility] Center CHEMISTRY BUN 6 mg/dL 7 - 22 10/30 LOW Medical [place] CHEMISTRY Sodium Lvl 132 meq/L 135 - 145 10/30 LOW Medical Center CHEMISTRY Calcium Lvl 8.5 mg/dL 8.5 - 10.5 10/30 Normal [facility] CHEMISTRY CO2 29 meq/L 24 - 32 10/30 Normal [facility] CHEMISTRY Chloride Lvl 92 meq/L 95 - 109 10/30 LOW [facility] CHEMISTRY Potassium Lvl 3.8 meq/L 3.5 - 5.1 10/30 Normal [facility] CHEMISTRY AGAP 14.8 meq/L 10.0 - 10/30 Normal [facility] 20.0 [facility] HEMATOLOGY Platelet 245 K/CMM 133 - 450 10/30 Normal [facility] HEMATOLOGY MPV 9.4 fL 7.4 - 10.4 10/30 Normal [facility] HEMATOLOGY Hct 33.1 % 36.0 - 10/30 LOW [facility] 48.0 [facility] HEMATOLOGY RBC 4.47 M/CMM 4.20 - 10/30 Normal [facility] 5.40 /2012 [facility] HEMATOLOGY WBC 11.0 K/CMM 3.7 - 10.4 10/30 HI [facility] HEMATOLOGY Hgb 10.6 g/dL 12.0 - 10/30 LOW [facility] 16.0 [facility] HEMATOLOGY MCHC 31.9 g/dL 32.0 - 10/30 LOW [facility] 36.0 [facility] HEMATOLOGY MCV 74.1 fL 81.0 - 10/30 [facility] 99.0 /2012 Medical [place] HEMATOLOGY MCH 23.7 pg 27.0 - 10/30 LOW [facility] 31.0 [facility] HEMATOLOGY RDW 16.9 % 11.5 - 10/30 HI [facility] 14.5 /2012 Medical Center HEMATOLOGY PTT 28.1 s 22.9 - 10/30 Normal 25Interpretiv [facility] 35.8 /2012 e Data: [facility] Therapeutic Range: 57 - 92 Seconds HEMATOLOGY PT 13.7 s 12.0 - 10/30 Normal [facility] 14.7 /2012 [facility] HEMATOLOGY INR 1.03 0.85 - 10/30 Normal 22Interpretive Data: RECOMMENDED RANGES FOR PROTIME INR: [facility] 1. 2.0-3.0 for most medical and surgical thromboembolic states. Medical 2.5-3.5 for artificial heart valves and recurrent embolism. Center INR SHOULD BE USED ONLY FOR PATIENTS ON STABLE ANTICOAGULANT THERAPY. HEMATOLOGY Segs-Bands # 7.5 K/CMM 1.5 - 8.1 10/30 Normal [facility] HEMATOLOGY Basophils 0.4 % 0.0 - 1.0 10/30 Normal [facility] HEMATOLOGY Monocytes # 1.1 K/CMM 0.0 - 0.8 10/30 HI [facility] HEMATOLOGY Lymphocytes # 2.1 K/CMM 1.0 - 5.5 10/30 Normal 2012 [facility] HEMATOLOGY Microcyte 1+ None Seen 10/30 ABN Medical *ABN* Center (10/30/2012 00:20:00) HEMATOLOGY Eosinophils # 0.2 K/CMM 0.0 - 0.5 10/30 Normal [facility] HEMATOLOGY Segs 68.3 % 45.0 - 10/30 Normal [facility] 75.0 [facility] HEMATOLOGY Lymphocytes 18.9 % 20.0 - 10/30 LOW [facility] 40.0 [facility] HEMATOLOGY Monocytes 10.3 % 2.0 - 12.0 10/30 Normal [facility] HEMATOLOGY Eosinophils 2.1 % 0.0 - 4.0 10/30 Normal [facility] CHEMISTRY Magnesium Lvl 2.1 mg/dL 1.8 - 2.4 10/29 Normal [facility] CHEMISTRY Phosphorus 4.1 mg/dL 2.5 - 4.5 10/29 Normal [facility] CHEMISTRY Ca Ion mgdL 3.96 mg/dL 4.65 - 10/29 LOW [facility] 5.20 [facility] CHEMISTRY Ca Norm 1.01 1.16 - 10/29 LOW [place] mMol/L 1. [facility] CHEMISTRY Ca Ion 0.99 1.16 - 10/29 LOW [facility] mMol/L 1. [facility] CHEMISTRY Ca Norm mgdL 4.04 mg/dL 4.65 - 10/29 LOW [facility] 5.20 [facility] CHEMISTRY eGFR 104 10/29 NA 9Result Comment: The eGFR is calculated using the CKD-EPI formula. In most young, healthy individuals the eGFR will be > 90 mL/min/1.73m2. The eGFR declines with age. An eGFR of 60-89 may be normal in [facility] mL/min/1. some populations, particularly the elderly, for whom the CKD-EPI formula has not been extensively validated. Use of the eGFR is not recommended in the following populations: [address] Individuals with unstable creatinine concentrations, including [...] 0.7 mg/dL 0.5 - 1.4 10/29 Normal [facility] CHEMISTRY BUN 3 mg/dL 7 - 10/29 LOW [facility] CHEMISTRY Calcium Lvl 8.9 mg/dL 8.5 - 10.5 10/29 Normal [facility] CHEMISTRY Glucose Lvl 90 mg/dL 70 - 99 10/29 Normal 12Interpretive Data: Adult reference range values reflect the clinical guidelines of the [place] [employer]. [facility] CHEMISTRY Chloride Lvl 99 meq/L 95 - 109 10/29 Normal [facility] CHEMISTRY Potassium Lvl 4.4 meq/L 3.5 - 5.1 10/29 Normal [facility] CHEMISTRY CO2 27 meq/L 24 - 32 10/29 Normal [facility] CHEMISTRY Sodium Lvl 139 meq/L 135 - 145 10/29 Normal [facility] CHEMISTRY AGAP 17.4 meq/L 10.0 - 10/29 Normal [facility] 20.0 [facility] HEMATOLOGY PTT 23.7 s 22.9 - 10/29 Normal 26Interpretiv [facility] 35.8 e Data: [facility] Therapeutic Range: 57 - 92 Seconds HEMATOLOGY PT 13.4 s 12.0 - 10/29 Normal [facility] 14.7 [facility] HEMATOLOGY INR 1.00 0.85 - 10/29 Normal Interpretive Data: RECOMMENDED RANGES FOR PROTIME INR: [facility] . 2.0-3.0 for most medical and surgical thromboembolic states. Medical 2.5-3.5 for artificial heart valves and recurrent embolism. Center INR SHOULD BE USED ONLY FOR PATIENTS ON STABLE ANTICOAGULANT THERAPY. HEMATOLOGY RDW 17.1 % 11.5 - 10/29 [facility] 14.5 /2012 [facility] HEMATOLOGY MCH 23.8 pg 27.0 - 10/29 [facility] 31.0 /2012 [facility] HEMATOLOGY MCHC 32.2 g/dL 32.0 - 10/29 Normal [facility] 36.0 /2012 [facility] HEMATOLOGY Hct 33.6 % 36.0 - 10/29 [facility] 48.0 /2012 [facility] HEMATOLOGY MCV 74.0 fL 81.0 - 10/29 [facility] 99.0 [facility] HEMATOLOGY Platelet 233 K/CMM 133 - 450 10/29 Normal [facility] HEMATOLOGY MPV 9.9 fL 7.4 - 10.4 10/29 Normal [facility] HEMATOLOGY RBC 4.54 M/CMM 4.20 - 10/29 [facility] 5.40 /2012 [facility] HEMATOLOGY Hgb 10.8 g/dL 12.0 - 10/29 [facility] 16.0 [facility] HEMATOLOGY WBC 9.7 K/CMM 3.7 - 10.4 10/29 Normal [facility] HEMATOLOGY Lymphocytes # 2.6 K/CMM 1.0 - 5.5 10/29 Normal [facility] HEMATOLOGY Basophils 0.7 % 0.0 - 1.0 10/29 Normal [facility] HEMATOLOGY Segs-Bands # 6.0 K/CMM 1.5 - 8.1 10/29 Normal [facility] HEMATOLOGY Monocytes # 0.7 K/CMM 0.0 - 0.8 10/29 Normal [facility] HEMATOLOGY Eosinophils # 0.3 K/CMM 0.0 - 0.5 10/29 Normal [facility] HEMATOLOGY Basophils # 0.1 K/CMM 0.0 - 0.2 10/29 Normal [facility] HEMATOLOGY Microcyte 1+ None Seen 10/29 ABN Medical *ABN* Center (10/29/2012 00:56:00) HEMATOLOGY Segs 61.5 % 45.0 - 10/29 Normal [facility] 75.0 [facility] HEMATOLOGY Lymphocytes 26.8 % 20.0 - 10/29 Normal [facility] 40.0 [facility] HEMATOLOGY Monocytes 7.6 % 2.0 - 12.0 10/29 Normal [facility] HEMATOLOGY Eosinophils 3.4 % 0.0 - 4.0 10/29 Normal [facility] CHEMISTRY Amylase Lvl 27 unit/L 25 - 115 10/28 Normal [facility] CHEMISTRY Lipase Lvl 58 unit/L 73 - 393 10/28 LOW [facility] CHEMISTRY Bili Indirect 0.2 mg/dL 0.0 - 1.0 10/28 Normal [facility] CHEMISTRY Globulin 3.4 g/dL 2.0 - 4.0 10/28 Normal [facility] CHEMISTRY A/G Ratio 0.8 0.7 - 1.6 10/28 Normal [facility] CHEMISTRY AST 24 unit/L 0 - 37 10/28 Normal [facility] CHEMISTRY Bili Total 0.3 mg/dL 0.2 - 1.3 10/28 Normal [facility] CHEMISTRY Total Protein 6.2 g/dL 6.4 - 8.4 10/28 LOW [facility] CHEMISTRY ALT 23 unit/L 0 - 65 10/28 Normal [facility] CHEMISTRY Albumin Lvl 2.8 g/dL 3.5 - 5.0 10/28 LOW [facility] CHEMISTRY Alk Phos 85 unit/L 39 - 136 10/28 Normal [facility] CHEMISTRY Bili Direct 0.1 mg/dL 0.0 - 0.3 10/28 Normal [facility] HEMATOLOGY PTT 23.9 s 22.9 - 10/28 Normal 27Interpretiv [facility] 35.8 /2012 e Data: [facility] Therapeutic Range: 57 - 92 Seconds HEMATOLOGY PT 13.5 s 12.0 - 10/28 Normal [facility] 14.7 [facility] HEMATOLOGY INR 1.01 0.85 - 10/28 Normal 24Interpretive Data: RECOMMENDED RANGES FOR PROTIME INR: [facility] 1. 2.0-3.0 for most medical and surgical thromboembolic states. Medical 2.5-3.5 for artificial heart valves and recurrent embolism. Center INR SHOULD BE USED ONLY FOR PATIENTS ON STABLE ANTICOAGULANT THERAPY. VIRAL - Influ B Negative 6 Negative 10/28 Normal 6Interpretive [facility] SEROLOGY Data: Due Medical (10/27/2012 18:02:02) [...] - Influ A Negative Negative 10/28 Normal [facility] SEROLOGY Medical (10/27/2012 18:02:02) Center CHEMISTRY Vitamin D, 16 ng/mL 30 - 100 10/25 LOW 13Interpretive Data: Reference range is based on recommendations in the Endocrine [facility] 25-OH, /2013 Society Clinical Practice Guideline (J Clin Endocrinol Metab Medical 2011;96:2759-8945) Center CHEMISTRY Hgb A1C 8.4 % 10/25 NA 21Interpretive Data: HbA1C% eAG( mg/dL) Interpretation 6.0 126 Very good control [facility] 6.5 140 Very good control [place] 7.0 154 Good Control 7.5 169 Good Control 8.0 183 Marginal Control, take action to lower 8.5 197 Marginal Control, take action to lower 9.0 212 Poor Control, take action to lower 9.5 226 Poor Control, take action to lower 10.0 240 Poor Control, take action to lower CHEMISTRY LDL 87 mg/dL 0 - 129 10/25 Normal [facility] CHEMISTRY HDL 35 mg/dL >=35 10/25 Normal [facility] CHEMISTRY Trig 101 mg/dL 0 - 200 10/25 Normal [facility] CHEMISTRY Chol 142 mg/dL 120 - 200 10/25 Normal [facility] CHEMISTRY CHD Risk 4.06 3.90 - 10/25 Normal [facility] 5.80 [facility] CHEMISTRY Troponin-I 5.43 ng/mL 0.00 - 10/25 CRIT 18Result [facility] 0.40 Comment: Medical Critical Center Result(s) called to Jelani Rasmussen at 10/25/2012 00:47:48 TICKET MAKER by ISAAC. Read back OK. CHEMISTRY Troponin-T 0.693 0.000 - 10/25 CRIT 15Result [facility] ng/mL 0.100 /2012 Comment: Medical Critical Center Result(s) called to daisy otoole at 10/25/2012 01:18:09 TICKET MAKER by tac. Read back OK. HEMATOLOGY Basophils # 0.2 K/CMM 0.0 - 0.2 10/25 Normal [facility] HEMATOLOGY Plt Morph Normal 10/25 Normal Medical (10/25/2012 00:15:00) Center CHEMISTRY ALT 15 unit/L 0 - 65 10/24 Normal [facility] CHEMISTRY Albumin Lvl 2.7 g/dL 3.5 - 5.0 10/24 LOW [facility] CHEMISTRY Bili Total 0.5 mg/dL 0.2 - 1.3 10/24 Normal [facility] CHEMISTRY Alk Phos 83 unit/L 39 - 136 10/24 Normal [facility] CHEMISTRY Bili Direct 0.2 mg/dL 0.0 - 0.3 10/24 Normal [facility] CHEMISTRY Total Protein 5.8 g/dL 6.4 - 8.4 10/24 LOW [facility] CHEMISTRY AST 41 unit/L 0 - 37 10/24 HI [facility] CHEMISTRY Bili Indirect 0.3 mg/dL 0.0 - 1.0 10/24 Normal [facility] CHEMISTRY Globulin 3.1 g/dL 2.0 - 4.0 10/24 Normal [facility] CHEMISTRY A/G Ratio 0.9 0.7 - 1.6 10/24 Normal [facility] CHEMISTRY POC A Mode NC-3LPM 10/24 NA [facility] CHEMISTRY POC A HCO3 19 mMol/L 22 - 26 10/24 LOW [facility] CHEMISTRY POC A O2 Sat 98.0 % 95.0 - 10/24 Normal [facility] 100.0 [facility] CHEMISTRY POC A BE -6 mMol/L -2-2 - 2 10/24 LOW [facility] CHEMISTRY POC A PO2 103 mm[Hg] 80 - 100 10/24 HI [facility] CHEMISTRY POC A pH 7.35 7.35 - 10/24 [facility] 7.45 [facility] CHEMISTRY POC A PCO2 34 mm[Hg] 35 - 45 10/24 LOW [facility] CHEMISTRY POC A Temp 37.0 Abby 10/24 NA Medical Center CHEMISTRY POC A Source ART 10/24 NA [facility] Center CHEMISTRY Troponin-T 0.688 0.000 - 10/24 CRIT 16Result [facility] ng/mL 0.100 Comment: Medical Critical Center Result(s) called to Maribel Bustos at 10/24/2012 13:23:46 TICKET MAKER by lwb . Read back OK. CHEMISTRY Troponin-I 7.61 ng/mL 0.00 - 10/24 CRIT 19Result [facility] 0.40 Comment: Medical Critical Center Result(s) called to mariana bustos at _ 10/24/2012 13:37:22 CSTby_lss. Read back OK. CHEMISTRY Total CK 150 unit/L - 10/24 Normal [facility] CHEMISTRY Lactic Acid 0.7 mMol/L 0.5 - 2.2 10/24 Normal [facility] Lvl Medical Center CHEMISTRY CK MB Index 11.0 0.0 - 2.5 10/24 HI [facility] Center CHEMISTRY CK MB 16.5 ng/mL 0.5 - 3.6 10/24 HI Medical Center CHEMISTRY Troponin-T 0.750 0.000 - 10/24 CRIT 17Result [facility] ng/mL 0.100 Comment: Medical Critical Center Result(s) called to Lyn King at 10/24/2012 09:52:38 TICKET MAKER by lwb . Read back OK. CHEMISTRY Troponin-I 7.60 ng/mL 0.00 - 10/24 CRIT 20Result [facility] 0.40 Comment: Medical Critical Center Result(s) called to romero beltre at _10/24/2012 09:50:18 TICKET MAKER by_lss. Read back OK. CHEMISTRY Total CK 170 unit/L 12 - 10/24 Normal 14Result Comment: Medical Specimen Center Moderately Hemolyzed. CHEMISTRY CK MB Index 10.5 0.0 - 2.5 10/24 HI [facility] Center CHEMISTRY CK MB 17.8 ng/mL 0.5 [...] 0.6 mMol/L 0.5 - 2.2 10/24 Normal [facility] CHEMISTRY POC V O2 [...] 0.6 mMol/L 0.5 - 2.2 10/23 Normal [facility] Center Microbiolog Culture: 10/23 y [...] mMol/L -2-2 - 2 10/23 LOW MH [facility] CHEMISTRY POC A O2 Sat 99.0 % 95.0 - 10/23 [facility] 100.0 [facility] CHEMISTRY POC A Hct 35.0 % 36.0 - 10/23 LOW [facility] 48.0 [facility] CHEMISTRY POC A HCO3 20 mMol/L 22 - 26 10/23 LOW [facility] CHEMISTRY POC A PCO2 36 mm[Hg] 35 - 45 10/23 Normal [facility] CHEMISTRY POC A LA 0.6 mMol/L 0.5 - 2.2 10/23 Normal [facility] CHEMISTRY POC A Ca Ion 1.20 1.16 - 10/23 [facility] mMol/L 1.30 [facility] CHEMISTRY POC A Na 133 meq/L 135 - 145 10/23 LOW [facility] CHEMISTRY POC A K 3.8 meq/L 3.5 - 5.1 10/23 Normal [facility] CHEMISTRY A/G Ratio 0.8 0.7 - 1.6 10/23 Normal [facility] CHEMISTRY AST 90 unit/L 0 - 37 10/23 HI [facility] CHEMISTRY Globulin 3.9 g/dL 2.0 - 4.0 10/23 Normal [facility] CHEMISTRY B/C Ratio 16 6 - 25 10/23 Normal [facility] CHEMISTRY Total Protein 7.2 g/dL 6.4 - 8.4 10/23 Normal [facility] CHEMISTRY Bili Total 0.5 mg/dL 0.2 - 1.3 10/23 Normal [facility] CHEMISTRY Albumin Lvl 3.3 g/dL 3.5 - 5.0 10/23 LOW [facility] CHEMISTRY Alk Phos 94 unit/L 39 - 136 10/23 Normal [facility] CHEMISTRY ALT 23 unit/L 0 - 65 10/23 Normal [facility] CHEMISTRY Osmolality 292 280 - 300 10/23 Normal [facility] mOsm/kg [facility] CHEMISTRY Myoglobin 128 ng/mL 25 - 72 10/23 HI [facility] Microbiolog Culture: 10/23 [facility] y [facility] Screen BACTERIAL - MRSA by PCR Positive 1, 2 10/23 ABN 2Interpretive Data: Interpretive Data: The [employer] Light[employer] MRSA assay is a qualitative test for the direct detection of nasal colonization with methicillin-resistant Staphylococcus aureus (MRSA) to aid [facility] in the prevention and control of MRSA infections in healthcare settings. A positive result does not indicate an infection or require treatment. A negative result does not exclude colonization or infection. Medical *[facility]* Center The polymerase chain reaction (PCR) assay detects a proprietary sequence indicative of the integration of the SCCmec cassette into the Staphylococcus aureus chromosome, indicating the presence of MRSA D (10/23/2012 11:37:00) NA. The assay utilizes FDA cleared IVD reagents. Performance characteristics have been verified by the Molecular Diagnostic Laboratory within the [facility]. The Molecular Diagnostic Labor atory is authorized under the Clinical Laboratory Improvement Amendment of 1988 (CLIA-88) to perform high complexity testing. CHEMISTRY Osmolality 309 280 - 300 10/23 [facility] mOsm/kg [facility] CHEMISTRY POC A Hct 37.0 % 36.0 - 10/23 [facility] 48.0 [facility] CHEMISTRY POC A Na 129 meq/L 135 - 145 10/23 LOW [facility] CHEMISTRY POC A LA 1.0 mMol/L 0.5 - 2.2 10/23 Normal [facility] [facility] CHEMISTRY POC A K 4.5 meq/L 3.5 - 5.1 10/23 Normal [facility] CHEMISTRY POC A Glu null 70 - 99 10/23 CRIT [facility] CHEMISTRY POC A Ca Ion 1.18 1.16 - 10/23 Normal [facility] mMol/L 1.30 [facility] CHEMISTRY POC A PCO2 30 mm[Hg] 35 - 45 10/23 CRIT [facility] CHEMISTRY POC A PO2 123 mm[Hg] 80 - 100 10/23 HI [facility] CHEMISTRY POC A Temp 37.0 Abby 10/23 NA [facility] CHEMISTRY POC A HCO3 14 mMol/L 22 - 26 10/23 [facility] CHEMISTRY POC A Source ART 10/23 NA [facility] CHEMISTRY POC A pH 7.27 7.35 - 10/23 LOW [facility] 7.45 [facility] CHEMISTRY POC A BE -12 mMol/L -2-2 - 2 10/23 [facility] CHEMISTRY POC A O2 Sat 98.0 % 95.0 - 10/23 Normal [facility] 100.0 [facility] CHEMISTRY Bili Direct 0.4 mg/dL 0.0 - 0.3 10/23 HI [facility] CHEMISTRY Lipase Lvl 54 unit/L 73 - 393 10/23 LOW [facility] CHEMISTRY Amylase Lvl 28 unit/L 25 - 115 10/23 Normal [facility] CHEMISTRY B/C Ratio 10 6 - 25 10/23 Normal [facility] BLOOD BANK Antibody Scrn Negative 10/23 Normal [facility] Medical (10/23/2012 01:00:00) Center BLOOD BANK ABO/Rh A POS 10/23 Unknown [facility] URINALYSIS UA <=1.0 0.1 - 1.0 10/23 NA [facility] Urobilinogen mg/dL Medical
*NA*< Center br/>(10/23 00:01:00) <sup> </sup> URINALYSIS UA Sq Epi Moderate /LPF Few 10/23 ABN Medical *ABN* Center (10/23/2012 00:01:00) URINALYSIS UA Leuk Est Negative Negative 10/23 Normal [facility] (10/23/2012 00:01:00) Center URINALYSIS UA Nitrite Negative Negative 10/23 Normal [facility] (10/23/2012 00:01:00) Center URINALYSIS UA Blood Negative Negative 10/23 Normal [facility] (10/23/2012 00:01:00) Center URINALYSIS UA Glucose >=1000 mg/dL Negative 10/23 ABN Medical *ABN* [place] (10/23/2012 00:01:00) URINALYSIS UA Protein 10 mg/dL Negative 10/23 ABN Medical *ABN* [place] (10/23/2012 00:01:00) URINALYSIS UA pH 5.0 5.0 - 8.0 10/23 Normal [facility] URINALYSIS UA WBC 1 /HPF 0 - 5 10/23 Normal [facility] URINALYSIS UA Bili Negative Negative 10/23 NA Medical *NA* [place] (10/23/2012 00:01:00) URINALYSIS UA Ketones >=150 mg/dL Negative 10/23 ABN Medical *ABN* Center (10/23/2012 00:01:00) URINALYSIS UA Spec Grav 1.015 <=1.030 10/23 Normal [facility] URINALYSIS UA Turbidity Clear Clear 10/23 Normal Medical (10/23/2012 00:01:00) Center URINALYSIS UA Color Light Yellow Yellow 10/23 NA Medical *NA* Center (10/23/2012 00:01:00) BEDSIDE Gluc POC 265 mg/dL 70 - 99 10/08 HI 1Interpretive [facility] GLUCOSE Lifsc Data: [facility] TESTING Center Upper Reportable Limit: 200 mg/dL. BEDSIDE Comment1 Notify 10/08 [facility] GLUCOSE RN/MD /2012 [facility] TESTING Center BEDSIDE Comment1 Notify 10/08 NA [facility] GLUCOSE RN/MD [facility] TESTING Center BEDSIDE Gluc POC 204 mg/dL 70 - 99 10/08 HI 2Interpretive [facility] GLUCOSE Lifma Data: [facility] TESTING [facility] Center Upper Reportable Limit: 200 mg/dL. CHEMISTRY Phosphorus 2.7 mg/dL 2.5 - 4.5 10/08 Normal [facility] CHEMISTRY Magnesium Lvl 1.6 mg/dL 1.8 - 2.4 10/08 LOW [facility] CHEMISTRY Ca Ion 1.17 1.16 - 02 Normal [facility] mMol/L 1. [facility] CHEMISTRY Ca Norm 1.18 1.16 - 10/08 Normal [facility] mMol/L 1. [facility] CHEMISTRY Ca Ion mgdL 4.68 mg/dL 4.65 - 10/08 Normal [facility] 5.20 [facility] CHEMISTRY Ca Norm mgdL 4.72 mg/dL 4.65 - 02 Normal [facility] 5.20 [facility] CHEMISTRY AGAP 17.6 meq/L 10.0 - 10/08 Normal [facility] 20.0 [facility] CHEMISTRY eGFR 109 10/08 NA 4Result Comment: The eGFR is calculated using the CKD-EPI formula. In most young, healthy individuals the eGFR will be > 90 mL/min/1.73m2. The eGFR declines with age. An eGFR of 60-89 may be normal in [facility] mL/min/1.7 some populations, particularly the elderly, for whom the CKD-EPI formula has not been extensively validated. Use of the eGFR is not recommended in the following populations: [place] [address] Center Individuals with unstable creatinine concentrations, including [...] 24 meq/L 24 - 32 10/08 Normal [facility] CHEMISTRY Calcium Lvl 8.5 mg/dL 8.5 - 10.5 10/08 Normal [facility]2012 [facility] CHEMISTRY Potassium Lvl 3.6 meq/L 3.5 - 5.1 10/08 Normal [facility] CHEMISTRY Chloride Lvl 96 meq/L 95 - 109 10/[address] CHEMISTRY Creatinine 0.6 mg/dL 0.5 - 1.4 10/08 Normal [facility] CHEMISTRY Sodium Lvl 134 meq/L 135 - 145 10/[address] CHEMISTRY Glucose Lvl 129 mg/dL 70 - 99 10/08 HI 7Interpretive Data: Adult reference range values reflect the clinical guidelines of the [place] [employer]. [facility] CHEMISTRY BUN 4 mg/dL 7 - 22 10/[address] HEMATOLOGY Monocytes # 1.1 K/CMM 0.0 - 0.8 10/08 HI [facility] HEMATOLOGY Eosinophils # 0.3 K/CMM 0.0 - 0.5 10/08 Normal [facility] HEMATOLOGY Basophils # 0.1 K/CMM 0.0 - 0.2 10/[address] HEMATOLOGY Microcyte 1+ None Seen 10/08 ABN Medical *ABN* Center (10/08/2012 03:57:00) HEMATOLOGY Segs 55.7 % 45.0 - 02 Normal [facility] 75.0 [facility] HEMATOLOGY Lymphocytes 31.3 % 20.0 - 02 Normal [place] 40.0 [facility] HEMATOLOGY Monocytes 10.0 % 2.0 - 12.0 10/08 Normal [facility] HEMATOLOGY Eosinophils 2.5 % 0.0 - 4.0 02 Normal [facility] HEMATOLOGY Segs-Bands # 6.1 K/CMM 1.5 - 8.1 02/ Normal [facility] HEMATOLOGY Basophils 0.5 % 0.0 - 1.0 02/ Normal [facility] HEMATOLOGY Lymphocytes # 3.4 K/CMM 1.0 - 5.5 02 Normal [facility] HEMATOLOGY RDW 16.9 % 11.5 - 02 HI [facility] 14.5 /2012 [facility] HEMATOLOGY Platelet 218 K/CMM 133 - 450 02 Normal [facility] HEMATOLOGY WBC 10.9 K/CMM 3.7 - 10.4 10/08 HI [facility] HEMATOLOGY RBC 4.35 M/CMM 4.20 - 10/08 Normal [facility] 5.40 [facility] HEMATOLOGY MPV 9.7 fL 7.4 - 10.4 10/08 Normal [facility] HEMATOLOGY Hgb 10.4 g/dL 12.0 - 10/08 LOW [facility] 16.0 [facility] HEMATOLOGY Hct 32.7 % 36.0 - 02 [facility] 48.0 /2012 [facility] HEMATOLOGY MCHC 31.8 g/dL 32.0 - 02 [facility] 36.0 /2012 [facility] HEMATOLOGY MCV 75.2 fL 81.0 - 02 [facility] 99.0 /2012 [facility] HEMATOLOGY MCH 23.9 pg 27.0 - 10/08 [facility] 31.0 [facility] BEDSIDE Comment1 Notify 10/08 NA [facility] GLUCOSE RN/MD /2012 Medical TESTING Center BEDSIDE Gluc POC 247 mg/dL 70 - 99 10/08 HI 3Interpretive [facility] GLUCOSE Lifscn Data: Medical TESTING Center Upper Reportable Limit: 200 mg/dL. CHEMISTRY Magnesium Lvl 2.1 mg/dL 1.8 - 2.4 10/07 Normal [facility] CHEMISTRY Ca Norm 1.16 1.16 - 02 Normal [facility] mMol/L 1.30 [facility] CHEMISTRY Ca Ion mgdL 4.72 mg/dL 4.65 - 10/07 Normal [facility] 5. [facility] CHEMISTRY Ca Norm mgdL 4.64 mg/dL 4.65 - 10/07 LOW [facility] 5. [facility] CHEMISTRY Ca Ion 1.18 1.16 - 02 Normal [facility] mMol/L 1.30 [facility] CHEMISTRY Phosphorus 2.6 mg/dL 2.5 - 4.5 10/07 Normal [facility] CHEMISTRY Calcium Lvl 8.1 mg/dL 8.5 - 10.5 10/07 LOW [facility] CHEMISTRY AGAP 19.4 meq/L 10.0 - 10/07 Normal [facility] 20.0 [facility] CHEMISTRY eGFR 116 10/07 NA 5Result Comment: The eGFR is calculated using the CKD-EPI formula. In most young, healthy individuals the eGFR will be > 90 mL/min/1.73m2. The eGFR declines with age. An eGFR of 60-89 may be normal in [facility] mL/min/1.7 some populations, particularly the elderly, for whom the CKD-EPI formula has not been extensively validated. Use of the eGFR is not recommended in the following populations: [place] [address] Center Individuals with unstable creatinine concentrations, including [...] 6 mg/dL 7 - 22 10/07 LOW [facility] CHEMISTRY Glucose Lvl 99 mg/dL 70 - 99 10/07 Normal 8Interpretive Data: Adult reference range values reflect the clinical guidelines of the [place] [employer]. [facility] CHEMISTRY Creatinine 0.5 mg/dL 0.5 - 1.4 10/07 Normal [facility] Lvl [facility] CHEMISTRY Potassium Lvl 3.4 meq/L 3.5 - 5.1 10/07 LOW [facility] CHEMISTRY Sodium Lvl 135 meq/L 135 - 145 10/07 Normal [facility] CHEMISTRY CO2 24 meq/L 24 - 32 10/07 Normal [facility] CHEMISTRY Chloride Lvl 95 meq/L 95 - 109 10/07 Normal [facility] HEMATOLOGY MCHC 31.8 g/dL 32.0 - 10/07 LOW [facility] 36.0 [facility] HEMATOLOGY MCH 24.1 pg 27.0 - 10/07 [facility] 31.0 /2012 [facility] HEMATOLOGY MCV 75.7 fL 81.0 - 02 [facility] 99.0 /2012 [facility] HEMATOLOGY Hct 31.0 % 36.0 - 02 [facility] 48.0 /2012 [facility] HEMATOLOGY Hgb 9.9 g/dL 12.0 - 02/ [facility] 16.0 /2012 [facility] HEMATOLOGY MPV 9.1 fL 7.4 - 10.4 02 Normal [facility] HEMATOLOGY Platelet 222 K/CMM 133 - 450 02 Normal [facility] HEMATOLOGY RDW 16.8 % 11.5 - 02 [place] [facility] 14.5 /2012 [facility] HEMATOLOGY RBC 4.10 M/CMM 4.20 - 02 [facility] 5.40 /2012 [facility] HEMATOLOGY WBC 13.8 K/CMM 3.7 - 10.4 10/07 [facility] HEMATOLOGY Segs-Bands # 9.6 K/CMM 1.5 - 8.1 10/07 [facility] HEMATOLOGY Basophils 0.3 % 0.0 - 1.0 02 Normal [facility] HEMATOLOGY Eosinophils 1.0 % 0.0 - 4.0 02 [facility] HEMATOLOGY Microcyte 1+ None Seen 10/07 [facility] (10[facility]07/2012 03:25:00) HEMATOLOGY Lymphocytes # 2.9 K/CMM 1.0 - 5.5 10/07 [facility] HEMATOLOGY Eosinophils # 0.1 K/CMM 0.0 - 0.5 10/07 [facility] HEMATOLOGY Monocytes # 1.2 K/CMM 0.0 - 0.8 02 [facility] HEMATOLOGY Monocytes 8.8 % 2.0 - 12.0 10/07 [facility] HEMATOLOGY Lymphocytes 20.8 % 20.0 - 02 [facility] 40.0 [facility] HEMATOLOGY Segs 69.1 % 45.0 - 02 [facility] 75.0 [facility] URINALYSIS UA Glucose 500mg/dL 10/06 NA [facility] URINALYSIS UA <=1.0 0.1 - 1.0 10/06 NA [facility] Urobilinogen mg/dL /2012 Medical
*NA*< Center br/>(10/06 11:42:00) <sup> </sup> URINALYSIS Micro? Performed 10/06 NA [facility] *NA* Center (10/06/2012 11:42:00) URINALYSIS UA [place] Yeast Moderate /HPF None Seen 10/06 [facility] *ABN* Center (10/06/2012 11:42:00) URINALYSIS UA RBC 3 /HPF 0 - 2 10/06 HI [facility] URINALYSIS UA Bacteria Many /HPF None Seen 10/06 [facility] *ABN* [place] (10/06/2012 11:42:00) URINALYSIS UA WBC 3 /HPF 0 - 5 10/06 Normal 2012 [facility] URINALYSIS UA Leuk Est Negative Negative 10/06 Normal [facility] (10/06/2012 11:42:00) Center URINALYSIS UA Nitrite Negative Negative 10/06 Normal [facility] (10/06/2012 11:42:00) Center URINALYSIS UA Sq Epi Many /LPF Few 10/06 [facility] *ABN* [place] (10/06/2012 11:42:00) URINALYSIS UA Bili Negative Negative 10/06 NA [facility] *NA* [place] (10/06/2012 11:42:00) URINALYSIS UA Blood Negative Negative 10/06 Normal [facility] (10/06/2012 11:42:00) Center URINALYSIS UA pH 5.5 5.0 - 8.0 10/06 Normal [facility] URINALYSIS UA Protein 20 mg/dL Negative 10/06 ABN [facility] *ABN* Center (10/06/2012 11:42:00) URINALYSIS UA Ketones >=150 mg/dL Negative 10/06 [facility] *ABN* Center (10/06/2012 11:42:00) URINALYSIS UA Color Yellow Yellow 10/06 NA [facility] *NA* Center (10/06/2012 11:42:00) URINALYSIS UA Turbidity Slight Clear 10/06 ABN [facility] *ABN* Center (10/06/2012 11:42:00) URINALYSIS UA Spec Grav 1.011 <=1.030 10/06 Normal [facility] URINALYSIS UA Mucus Few /LPF None Seen 10/06 NA [facility] *NA* [place] (10/06/2012 11:42:00) Microbiolog Culture: 10/06 [facility] y [facility] CHEMISTRY Phosphorus 2.5 mg/dL 2.5 - 4.5 10/06 Normal [facility] CHEMISTRY Magnesium Lvl 1.5 mg/dL 1.8 - 2.4 10/06 LOW [facility] CHEMISTRY eGFR 76 10/06 NA 6Result Comment: The eGFR is calculated using the CKD-EPI formula. In most young, healthy individuals the eGFR will be > 90 mL/min/1.73m2. The eGFR declines with age. An eGFR of 60-89 may be normal in [facility] mL/min/1. some populations, particularly the elderly, for whom the CKD-EPI formula has not been extensively validated. Use of the eGFR is not recommended in the following populations: [address] Individuals with unstable creatinine concentrations, including [...] 3.9 meq/L 3.5 - 5.1 10/06 Normal [facility] CHEMISTRY Chloride Lvl 97 meq/L 95 - 109 10/06 Normal [facility] CHEMISTRY Calcium Lvl 8.3 mg/dL 8.5 - 10.5 10/06 LOW [facility] CHEMISTRY CO2 22 meq/L 24 - 32 10/06 LOW [facility] CHEMISTRY Glucose Lvl 234 mg/dL 70 - 99 10/06 HI 9Interpretive Data: Adult reference range values reflect the clinical guidelines of the [place] [employer]. [facility] CHEMISTRY Creatinine 0.9 mg/dL 0.5 - 1.4 10/06 Normal [facility] CHEMISTRY BUN 9 mg/dL 7 - 22 10/06 Normal [facility] CHEMISTRY Sodium Lvl 134 meq/L 135 - 145 10/06 LOW [facility] CHEMISTRY AGAP 18.9 meq/L 10.0 - 10/06 Normal [place] 20.0 [facility] HEMATOLOGY Segs-Bands # 13.3 K/CMM 1.5 - 8.1 10/06 HI [facility] HEMATOLOGY Basophils 0.2 % 0.0 - 1.0 10/06 Normal [facility] HEMATOLOGY Eosinophils 0.1 % 0.0 - 4.0 10/06 Normal [facility] HEMATOLOGY Monocytes 6.7 % 2.0 - 12.0 10/06 Normal [facility] HEMATOLOGY Segs 81.7 % 45.0 - 10/06 [facility] [place] 75.0 [facility] HEMATOLOGY Lymphocytes 11.3 % 20.0 - 10/06 [facility] [place] 40.0 [facility] HEMATOLOGY Microcyte 1+ None Seen 10/06 ABN Medical *ABN* Center (10/06/2012 04:25:00) HEMATOLOGY Monocytes # 1.1 K/CMM 0.0 - 0.8 10/06 HI [facility] HEMATOLOGY Lymphocytes # 1.8 K/CMM 1.0 - 5.5 10/06 Normal [facility] HEMATOLOGY RBC 4.28 M/CMM 4.20 - 10/06 Normal [place] 5.40 /2012 [facility] HEMATOLOGY WBC 16.3 K/CMM 3.7 - 10.4 10/06 [facility] HEMATOLOGY Hgb 10.3 g/dL 12.0 - 10/06 [facility] [place] 16.0 [facility] HEMATOLOGY Hct 32.6 % 36.0 - 10/06 [facility] [place] 48.0 /2012 [facility] HEMATOLOGY MCH 24.0 pg 27.0 - 10/06 LOW [place] 31.0 [facility] HEMATOLOGY MCV 76.1 fL 81.0 - 10/06 [facility] [place] 99.0 /2012 [facility] HEMATOLOGY MCHC 31.5 g/dL 32.0 - 10/06 [facility] [place] 36.0 [facility] HEMATOLOGY RDW 17.2 % 11.5 - 10/06 [facility] [place] 14.5 /2012 [facility] HEMATOLOGY Platelet 248 K/CMM 133 - 450 10/06 Normal [facility] HEMATOLOGY MPV 9.5 fL 7.4 - 10.4 10/06 Normal [facility] CHEMISTRY Ca Norm 1.07 1.16 - 10/05 LOW [facility] mMol/L 1. [facility] CHEMISTRY Ca Ion mgdL 4.36 mg/dL 4.65 - 10/05 LOW [place] 5. [facility] CHEMISTRY Ca Norm mgdL 4.28 mg/dL 4.65 - 10/05 LOW [facility] 5. [facility] CHEMISTRY Ca Ion 1.09 1.16 - 10/05 LOW [facility] mMol/L . [facility] HEMATOLOGY Basophils # 0.1 K/CMM 0.0 - 0.2 10/05 Normal [facility] HEMATOLOGY Eosinophils # 0.1 K/CMM 0.0 - 0.5 10/05 Normal [facility] CHEMISTRY U Preg Negative Negative 10/03 Normal Medical (10/03/2012 06:31:00) Center BLOOD BANK ABO/Rh A POS 10/03 Unknown [facility] BLOOD BANK Antibody Scrn Negative 10/03 Normal [facility] Medical (10/03/2012 06:00:00) Center CHEMISTRY Total Protein 7.8 g/dL 6.4 - 8.4 09/23 Normal [facility] CHEMISTRY AST 31 unit/L 0 - 37 09/23 Normal [facility] CHEMISTRY Bili Total 0.3 mg/dL 0.2 - 1.3 09/23 Normal [facility] CHEMISTRY ALT 50 unit/L 0 - 65 09/23 Normal [facility] CHEMISTRY Albumin Lvl 3.6 g/dL 3.5 - 5.0 09/23 Normal [facility] CHEMISTRY Alk Phos 150 unit/L 39 - 136 09/23 HI [facility] CHEMISTRY B/C Ratio 21 6 - 25 09/23 Normal [facility] CHEMISTRY Globulin 4.2 g/dL 2.0 - 4.0 09/23 [facility] CHEMISTRY A/G Ratio 0.9 0.7 - 1.6 09/23 Normal [facility] HEMATOLOGY Hypochrom Slight None Seen 09/23 Normal Medical (09/23/2012 12:35:00) Center HEMATOLOGY Elliptocyte Slight None Seen 09/23 ABN Medical *ABN* Center (09/23/2012 12:35:00) HEMATOLOGY Basophils # 0.1 K/CMM 0.0 - 0.2 09/23 Normal [facility] HEMATOLOGY Plt Morph Normal 09/23 Normal [facility] (09/23/2012 12:35:00) Center URINALYSIS UA <=1.0 0.1 - 1.0 09/23 NA [facility] Urobilinogen mg/dL /2012 Medical
*NA*< Center br/>(09/23 12:35:00) <sup> </sup> URINALYSIS UA Nitrite Negative Negative 09/23 Normal [facility] (09/23/2012 12:35:00) Center URINALYSIS UA Blood Negative Negative 09/23 Normal [facility] (09/23/2012 12:35:00) Center URINALYSIS UA Leuk Est Negative Negative 09/23 Normal [facility] (09/23/2012 12:35:00) Center URINALYSIS Micro? Not Indicated 09/23 NA [facility] *NA* [place] (09/23/2012 12:35:00) URINALYSIS UA Ketones Negative mg/dL Negative 09/23 [facility] *NA* [place] (09/23/2012 12:35:00) URINALYSIS UA Bili Negative Negative 09/23 [facility] *NA* [place] (09/23/2012 12:35:00) URINALYSIS UA Protein Negative mg/dL Negative 09/23 Normal [facility] (09/23/2012 12:35:00) Center URINALYSIS UA pH 5.0 5.0 - 8.0 09/23 Normal [facility] Center URINALYSIS UA Glucose Negative mg/dL Negative 09/23 [facility] *NA* [place] (09/23/2012 12:35:00) URINALYSIS UA Color Light Yellow Yellow 09/23 NA [facility] *NA* [place] (09/23/2012 12:35:00) URINALYSIS UA Spec Grav 1.004 <=1.030 09/23 Normal [facility] URINALYSIS UA Turbidity Clear Clear 09/23 Normal Medical (09/23/2012 12:35:00) Center BEDSIDE Gluc POC 153 mg/dL 70 - 99 06/28 HI 1Interpretive [facility] GLUCOSE Lifsc Data: Medical TESTING Center Upper Reportable Limit: 200 mg/dL. CHEMISTRY U Preg Negative Negative 06/28 Normal Medical (06/28/2012 07:27:00) Center Vital Signs Vital Sign Value Date Comments Source Systolic (mm Hg) 124 08/13/2013 [facility] Respitory Rate 18 08/13/2013 [facility] Temperature Oral (F) 98.8 F 08/13/2013 [facility] Heart Rate 102 08/13/2013 [facility] Diastolic (mm Hg) 46 08/13/2013 [facility] Systolic (mm Hg) 107 08/13/2013 [facility] Respitory Rate 18 08/13/2013 [facility] Diastolic (mm Hg) 63 08/13/2013 [facility] Heart Rate 103 08/13/2013 [facility] Heart Rate 105 08/13/2013 [facility] Respitory Rate 18 08/13/2013 [facility] Systolic (mm Hg) 117 08/13/2013 [facility] Diastolic (mm Hg) 70 08/13/2013 [facility] Weight 81.818 08/13/2013 [facility] Height 162.56 cm 08/13/2013 [facility] Temperature Oral (F) 98.4 F 08/13/2013 [facility] Diastolic (mm Hg) 61 07/15/2013 [facility] Temperature Oral (F) 97.7 F 07/15/2013 [facility] Systolic (mm Hg) 117 07/15/2013 [facility] Respitory Rate 18 07/15/2013 [facility] Heart Rate 90 07/15/2013 [facility] Respitory Rate 18 07/14/2013 [facility] Heart Rate 104 07/14/2013 [facility] Diastolic (mm Hg) 46 07/14/2013 [facility] Systolic (mm Hg) 91 07/14/2013 [facility] Diastolic (mm Hg) 61 07/14/2013 [facility] Systolic (mm Hg) 95 07/14/2013 [facility] Respitory Rate 18 07/14/2013 [facility] Heart Rate 120 07/14/2013 [facility] Temperature Oral (F) 97.5 F 07/14/2013 [facility] Temperature Oral (F) 97.6 F 07/14/2013 [facility] Height 162.56 cm 07/12/2013 [facility] Weight 86.364 07/12/2013 [facility] Temperature Oral (F) 97.1 F 04/03/2013 [facility] Respitory Rate 18 04/03/2013 [facility] Heart Rate 79 04/03/2013 [facility] Center Diastolic (mm Hg) 66 04/03/2013 [facility] Center Systolic (mm Hg) 94 04/03/2013 [facility] Center Diastolic (mm Hg) 28 04/03/2013 [facility] Systolic (mm Hg) 116 04/03/2013 [facility] Center Respitory Rate 20 04/03/2013 [facility] Heart Rate 100 04/03/2013 [facility] Temperature Oral (F) 97.0 F 04/03/2013 [facility] Height 162.56 cm 04/03/2013 [facility] Weight 90 04/03/2013 [facility] Height 162.56 cm 04/02/2013 [facility] Weight 90 04/02/2013 [facility] Systolic (mm Hg) 132 03/09/2013 [facility] Diastolic (mm Hg) 72 03/09/2013 [facility] Heart Rate 114 03/09/2013 [facility] Temperature Oral (F) 97.7 F 03/09/2013 [facility] Respitory Rate 20 03/09/2013 [facility] Temperature Oral (F) 97.7 F 03/09/2013 [facility] Heart Rate 108 03/09/2013 [facility] Systolic (mm Hg) 143 03/09/2013 [facility] Respitory Rate 18 03/09/2013 [facility] Diastolic (mm Hg) 81 03/09/2013 [facility] Heart Rate 115 03/09/2013 [facility] Diastolic (mm Hg) 70 03/09/2013 [facility] Systolic (mm Hg) 153 03/09/2013 [facility] Respitory Rate 18 03/09/2013 [facility] Temperature Oral (F) 97.5 F 03/09/2013 [facility] Weight 90 03/07/2013 [facility] Height 162.56 cm 03/07/2013 [facility] Height 162.56 cm 03/06/2013 [facility] Weight 90 03/06/2013 [facility] Systolic (mm Hg) 127 12/07/2012 [facility] Diastolic (mm Hg) 49 12/07/2012 [facility] Heart Rate 90 12/07/2012 [facility] Temperature Oral (F) 98.3 F 12/07/2012 [facility] Respitory Rate 18 12/07/2012 [facility] Systolic (mm Hg) 104 12/07/2012 [facility] Temperature Oral (F) 98.6 F 12/07/2012 [facility] Respitory Rate 18 12/07/2012 [facility] Heart Rate 78 12/07/2012 [facility] Diastolic (mm Hg) 57 12/07/2012 [facility] Heart Rate 89 12/07/2012 [facility] Temperature Oral (F) 97.6 F 12/07/2012 [facility] Respitory Rate 18 12/07/2012 [facility] Systolic (mm Hg) 105 12/07/2012 [facility] Diastolic (mm Hg) 51 12/07/2012 [facility] Weight 100 11/29/2012 [facility] Height 162.56 cm 11/29/2012 [facility] Weight 100.568 11/29/2012 [facility] Height 162.56 cm 11/29/2012 [facility] Weight 101.364 11/28/2012 [facility] Height 162.56 cm 11/28/2012 [facility] Diastolic (mm Hg) 55 11/17/2012 [facility] Systolic (mm Hg) 117 11/17/2012 [facility] Diastolic (mm Hg) 70 11/17/2012 [facility] Systolic (mm Hg) 118 11/17/2012 [facility] Diastolic (mm Hg) 61 11/17/2012 [facility] Systolic (mm Hg) 154 11/17/2012 [facility] Temperature Oral (F) 97.8 F 11/17/2012 [facility] Temperature Oral (F) 97.9 F 11/17/2012 [facility] Temperature Oral (F) 98.6 F 11/17/2012 [facility] Height 162.56 cm 11/17/2012 [facility] Weight 103.21 11/17/2012 [facility] Respitory Rate 18 11/17/2012 [facility] Height 162.56 cm 11/16/2012 [facility] Weight 100 11/16/2012 [facility] Diastolic (mm Hg) 58 11/14/2012 [facility] Systolic (mm Hg) 121 11/14/2012 [facility] Respitory Rate 20 11/14/2012 [facility] Heart Rate 84 11/14/2012 [facility] Temperature Oral (F) 98.0 F 11/14/2012 [facility] Respitory Rate 20 11/14/2012 [facility] Systolic (mm Hg) 103 11/14/2012 [facility] Diastolic (mm Hg) 54 11/14/2012 [facility] Temperature Oral (F) 98.0 F 11/14/2012 [facility] Heart Rate 83 11/14/2012 [facility] Diastolic (mm Hg) 68 11/14/2012 [facility] Respitory Rate 20 11/14/2012 [facility] Heart Rate 79 11/14/2012 [facility] Systolic (mm Hg) 136 11/14/2012 [facility] Temperature Oral (F) 98.4 F 11/14/2012 [facility] Height 162.56 cm 11/06/2012 [facility] Weight 100 11/06/2012 [facility] Height 162.56 cm 11/06/2012 [facility] Weight 100 11/06/2012 [facility] Height 162.56 cm 11/06/2012 [facility] Weight 104.545 11/06/2012 [facility] Systolic (mm Hg) 131 11/01/2012 [facility] Diastolic (mm Hg) 62 11/01/2012 [facility] Systolic (mm Hg) 125 11/01/2012 [facility] Diastolic (mm Hg) 62 11/01/2012 [facility] Systolic (mm Hg) 155 10/31/2012 [facility] Diastolic (mm Hg) 54 10/31/2012 [facility] Temperature Oral (F) 99.7 F 10/31/2012 [facility] Temperature Oral (F) 96.7 F 10/31/2012 [facility] Temperature Oral (F) 98.1 F 10/31/2012 [facility] Respitory Rate 19 10/31/2012 [facility] Respitory Rate 19 10/31/2012 [facility] Respitory Rate 19 10/31/2012 [facility] Weight 78.2 10/24/2012 [facility] Heart Rate 126 10/23/2012 [facility] Heart Rate 130 10/23/2012 [facility] Weight 113.636 10/23/2012 [facility] Height 162.56 cm 10/23/2012 [facility] Heart Rate 119 10/23/2012 [facility] Height 162.56 cm 10/23/2012 [facility] Systolic (mm Hg) 123 10/08/2012 [facility] Respitory Rate 19 10/08/2012 [facility] Diastolic (mm Hg) 51 10/08/2012 [facility] Heart Rate 81 10/08/2012 [facility] Temperature Oral (F) 98.8 F 10/08/2012 [facility] Diastolic (mm Hg) 55 10/08/2012 [facility] Respitory Rate 20 10/08/2012 [facility] Systolic (mm Hg) 136 10/08/2012 [facility] Heart Rate 82 10/08/2012 [facility] Temperature Oral (F) 98.9 F 10/08/2012 [facility] Diastolic (mm Hg) 47 10/08/2012 [facility] Systolic (mm Hg) 107 10/08/2012 [facility] Temperature Oral (F) 98.1 F 10/08/2012 [facility] Respitory Rate 18 10/08/2012 [facility] Heart Rate 75 10/08/2012 [facility] Weight 118.200 10/03/2012 [facility] Height 162.56 cm 10/03/2012 [facility] Weight 118.182 09/23/2012 [facility] Height 162.56 cm 09/23/2012 [facility] Diastolic (mm Hg) 57 06/28/2012 [facility] Heart Rate 104 06/28/2012 [facility] Respitory Rate 18 06/28/2012 [facility] Systolic (mm Hg) 147 06/28/2012 [facility] Systolic (mm Hg) 153 06/28/2012 [facility] Diastolic (mm Hg) 61 06/28/2012 [facility] Respitory Rate 16 06/28/2012 [facility] Systolic (mm Hg) 136 06/28/2012 [facility] Diastolic (mm Hg) 52 06/28/2012 [facility] Respitory Rate 18 06/28/2012 [facility] Temperature Oral (F) 98.5 F 06/28/2012 [facility] Heart Rate 104 06/28/2012 [facility] Weight 118.182 06/14/2012 [facility] Height 162.56 cm 06/14/2012 [facility] Encounters Location Location Encounter Encounter Reason Attending ADM DC Status Source Details Type Number For Visit Provider Date Date [facility] DS [id number] DSU/ WOLFGANG 06/28 Active [facility] REFLUX SUSHILA /2011 [facility] Inpatient [id number] WOLFGANG 10/03 10/08 Active [facility] SUSHILA /2012 [facility] Inpatient [id number] N/V DARELL 10/23 11/01 Active [facility] DEHYDRATI SDRINGOLA- /2012 [facility] ON MARANGA [facility] Inpatient [id number] LAVONE 11/05 11/14 Active [facility] ROSE /2012 [facility] OU [id number] CHIP 11/16 11/17 Active [facility] MARKUS /2012 [facility] Inpatient [id number] JUAN J 11/29 12/07 Active [facility] Medical BRANDO /2012 [facility] OU [id number] SANJUANA 03/07 03/09 Active [facility] OSUAGWU /2012 [facility] OU [id number] JEANNIE 04/02 04/03 Active [facility] ADOLFO /2012 [facility] OU [id number] GASTROPAR JEANNIE 07/12 07/14 Active [facility] ESIS ADOLFO /2012 [facility] JACKIE [id number] WOLFGANG 07/26 07/27 Active [facility] SUSHILA /2012 [facility] Emergency [id number] KATELYN 08/13 08/13 Active [facility] TORYCZ /2012 [facility] Outpatient [id number] SERGO WHITFIELD Cancel [facility] Procedures Procedure Code Date Perfomer Comments Source section [id number] [facility] Cholecystectomy [id number] [facility] <sup>1</sup> [facility] Hand repair [id number], x'2 [facility] <sup>2</sup> [facility] Tonsillectomy [id number] [facility] <sup>3</sup> [facility] Bypass of stomach [id number] [facility] Rotator cuff repair [id number] [facility] Heart procedure [id number] 1cardiac [facility] <sup>1</sup> stent for [facility]
--- OUTSIDE RECORDS SUMMARY | 2018-12-18 20:35 | XMS REPORT | CCD ---
:1965 Author Organization [facility] Care Team Providers Name Role [...]
--- OUTSIDE RECORDS SUMMARY | 2018-12-18 20:36 | XMS REPORT | CCD ---
[...] Medication Instructions Start Date End Date Status [place] 325 mg-10 mg / 15 mL, Route: [...] Duration: 30 day, Stop date: 11/02/12 10:59:00 [place] 325 mg-10 mg / 30 mL, Route: PO, 10/04/2012 10/05/2012 Discontinued 15 mL oral solution Drug Form: SOLN, Dosing Weight 118.2, kg, Q4H, PRN Pain Score 6-10, Start date: 10/04/12 17:20:00, Duration: 30 day, Stop date: 11/03/12 17:19:00 [place] 325 mg-10 mg / 15 mL, Route: [...] 14:28:00, PRN Blood Glucose Results Blistex Lip [place] Route: TOP, Dosing 10/06/2012 10/06/2012 Deleted Weight [...] /LPF] Few /LPF *NA* (10/06/2012 11:42:00) [facility] [place] Yeast [None Seen /HPF] Moderate /HPF *ABN* [...] values reflect the clinical guidelines of the [place] [employer].8Interpretive Data: Adult reference range values reflect the clinical guidelines of the [place] [employer].9Interpretive Data: Adult reference range values reflect the clinical guidelines of the [place] [employer].HEMATOLOGY Most recent to oldest 1 [...] Catch FREE TEXT SOURCE: FINAL REPORTS Final Abvnmy83,000 - 50,000 CFU/mL Enterococcus SpeciesPRELIMINARY REPORTS Preliminary Kteibq58,000 - 50,000 CFU/ mL Enterococcus Species ; Sensitivity PendingSUSCEPTIBILITY REPORT ENTERO Antibiotic INTERP. VDIL Ampicillin S Levofloxacin S Nitrofurantoin S Tetracycline R Vancomycin S Procedures Procedures Date Related Diagnosis section Cholecystectomy 1 Hand repair 2 Tonsillectomy 3 , [id number]
--- OUTSIDE RECORDS SUMMARY | 2018-12-18 20:37 | XMS REPORT | CCD ---
[...] Hypertension Resolved MRSA1, 2 10/23/2012 Active 1nares 10/23/201298612Aorvtfq added by Discern Expert. Medications Medication Instructions [...] Duration: 30 day, Stop date: 12/06/12 1:48:00 [place] 5/325 oral tablet 1 tab, PO, Q6H, [...] Duration: 30 day, Stop date: 12/08/12 10:44:00 [place] 5/325 oral tablet 1 tab, Route: PO, [...] INJ, Q2H, Dosing Weight 100, kg, Total bunz=6444 mg, Start date: 11/14/12 8:00:00, Duration: 2 [...] 11/08/2012 11/08/2012 Canceled PO, Drug form: TAB, [id number], Dosing Weight 100, kg, Start date: 11/08/12 [...] [Negative] Negative 1 (11/12/2012 21:54:26) 1Interpretive Data: [employer] Clostridium difficile assay utilizes loop-mediated isothermalDNA amplification (LAMP) technology to detect a 204 bp region of the tcdA gene within the PaLoc genesegment present in all known toxigenic C. difficile strains. The assay utilizes FDA cleared IVD reagents. Performance characteristics have been verified by the [facility]. The [facility] is [...] values reflect the clinical guidelines of the [place] [employer].10Interpretive Data: Adult reference range values reflect the clinical guidelines of the [place] [employer].11Result Comment: rechecked Critical Result (s) called leslie Conner Rose at 11/12/2012 02:56:37 COTTON STRIPPER by_mgm. Read back OK.12Interpretive Data: Adult reference range values reflect the clinical guidelines of the [place] [employer].13Result Comment: Critical Result(s) called to [...] 10.0 240 Poor Control, take action to gmeub92Grocwv Comment : Critical Result(s) called leslie Rose [...] Catch FREE TEXT SOURCE: FINAL REPORTS Final Fodvxg28,000 - 100,000 CFU/mL Enterococcus SpeciesPRELIMINARY REPORTS Preliminary Rnjzno96,000 - 100,000 CFU/ mL Enterococcus Species Identification And Sensitivity PendingSUSCEPTIBILITY REPORT ENTERO Antibiotic INTERP. VDIL Ampicillin S Levofloxacin S Nitrofurantoin S Tetracycline R Vancomycin S
--- OUTSIDE RECORDS SUMMARY | 2018-12-18 20:38 | XMS REPORT | CCD ---
:1965 Author Organization [facility] Care Team Providers Name [...] Hypertension Resolved MRSA1, 2 10/23/2012 Active 1nares 10/23/201251152Xcsomva added by Discern Expert. Medications Medication Instructions [...] mg, 1 supp, 10/23/2012 11/01/2012 Discontinued Route: [place], Drug form: SUPP, Q6H, Dosing Weight 113.636, kg, PRN Fever, Start date: 10/23/12 0:37:00, Duration: 30 day, Stop date: 11/22/12 0:36:00 Visipaque 320mg/ml 126 mL, Route: IVP, Drug Form: SOLN, Dosing Weight 113.636 , kg, ONCALL, STAT, Start date: 10/23/12 16:52:00, Duration: 1 doses or times, Dose=2.2ml/kg, Max aaat=107oq -- "To be infused by Radiology Staff ONLY" 10/2310/23/2012 Completed Dose=2.2ml/kg, Max wygb=263tl -- "To be infused by Radiology Staff [...] mg, 1 supp, 10/24/2012 10/24/2012 Deleted Route: [place], Drug form: SUPP, ONCE, Dosing Weight 78.2, [...] Duration: 1 doses or times, Dose=2.2ml/kg, Max kzje=991gf -- "To be infused by Radiology Staff ONLY" 10/2310/23/2012 Completed Dose=2.2ml/kg, Max lcqj=461oq -- "To be infused by Radiology Staff [...] [facility] within the [facility]. The Molecular Diagnostic Laboratory is [...] values reflect the clinical guidelines of the [place] [employer].11Interpretive Data: Adult reference range values reflect the clinical guidelines of the [place] [employer].12Interpretive Data: Adult reference range values reflect the clinical guidelines of the [place] [employer].13Interpretive Data: Reference range is based on recommendations in the Endocrine Society Clinical Practice Guideline (J Clin Endocrinol Metab 2011;96:5827-0930)14Result Comment: Specimen Moderately Hemolyzed.15Result Comment: Critical Result(s) called to daisy otoole at 10/25/2012 01:18:09 SOFTWARE CONFIGURATION MANAGER by tac. Read back OK.16Result Comment: Critical Result(s) called to Maribel Bustos at 10/24/2012 13:23:46 SOFTWARE CONFIGURATION MANAGER by lwb . Readback OK.17Result Comment: Critical Result(s) called to Lyn King at 10/24/2012 09:52:38 SOFTWARE CONFIGURATION MANAGER by lwb . Read back OK.18Result Comment: Critical Result(s) called to Jelani Rasmussen at 10/25/2012 00: 47:48 SOFTWARE CONFIGURATION MANAGER by RM. Read back OK.19Result Comment: Critical Result(s) called to mariana bustos at _ 10/24/2012 13:37:22 CSTby_lss. Readback OK.20Result Comment : Critical Result(s) called to romero beltre at _10/24/2012 09:50:18 SOFTWARE CONFIGURATION MANAGER by_lss. Read back OK.21Interpretive Data: HbA1C% eAG(mg/dL) [...] Data: Heparin Therapeutic Range: 57 - 92 Nhxbfzp42Lghrwajxwwpg Data: Heparin Therapeutic Range: 57 - 92 Ohlniby70Ruhppfcvrciv Data: Heparin Therapeutic Range: 57 - 92 Seconds Microbiology Reports PROCEDURE:Culture: Urine STATUS: Auth (Verified) BODY SITE: COLLECTED DATE/TIME: 10/23/2012 20:33:00 SOURCE: Urine,Straight Cath FREE TEXT SOURCE: FINAL REPORTS Final Djygnb95,000 - 100,000 CFU/mL Gram Negative Rods , Lactose Fermenters , 2 [place] Types 50,000 - 100,000 CFU/mL Enterococcus Species [...]
--- OUTSIDE RECORDS SUMMARY | 2018-12-18 20:39 | XMS REPORT | CCD ---
:1965 Author Organization [facility] Care Team Providers Name Role Phone Emeli Clark Consulting Provider Allergies, Adverse Reactions, Alerts Substance Reaction Status NKDA Active Problem List Condition Effective Dates Status Acid reflux Resolved Anemia Resolved Anxiety Resolved Arthritis Resolved Depression Resolved Diabetes mellitus type 1 Resolved Edema of lower extremity Resolved Fibromyalgia Resolved Hyperlipidemia Resolved Hypertension Resolved MRSA1, 2 10/23/2012 Active 1nares 10/23/201285709Nsslhcd added by Discern Expert. Medications Medication Instructions [...] 1 doses or times, Dose= 2.2ml/kg, Max ksfw=205eu -- "To be infused by Radiology Staff ONLY" 201211/16/2012 Discontinued Dose=2.2ml/kg, Max thiv=238tw -- "To be infused by Radiology Staff ONLY" calcium gluconate + Sodium 2,000 mg, 20 mL, Route: 11/17/2012 11/17/2012 Completed Chloride 0.9% IV 80 mL IVPB, ONCE, Dosing Weight 103.21, kg, Start date: 11/17/12 11:02:00, Stop date: 11/17/12 11:02:00 enoxaparin 40 mg, 0.4 mL, Route: 11/16/2012 11/17/2012 Discontinued SUB-Q, Drug form: INJ, [id number], Dosing Weight 100, kg, Start date: 11/16/12 [...] date: 11/16/12 13:40:00, Stop date: 11/16/12 13:40:00 [place] 5/325 oral tablet 1 tab, Route: PO, [...] values reflect the clinical guidelines of the [place] [employer].7Interpretive Data: Adult reference range values reflect the clinical guidelines of the [place] [employer].HEMATOLOGY Most recent to oldest [Reference [...]
--- OUTSIDE RECORDS SUMMARY | 2018-12-18 20:40 | XMS REPORT | CCD ---
:1965 Author Organization [facility] Care Team Providers Name Role Phone Marcela Michaelsbhumika Westbrook Consulting Provider Alberto Mata Consulting Provider Allergies, Adverse Reactions, Alerts Substance Reaction Status NKDA Active Problem List Condition Effective Dates Status Acid reflux Resolved Anemia Resolved Anxiety Resolved Arthritis Resolved Depression Resolved Diabetes mellitus type 1 Resolved Edema of lower extremity Resolved Fibromyalgia Resolved Hyperlipidemia Resolved Hypertension Resolved [place] - Myocardial infarction 10/22/2012 Resolved MRSA1, 2, 3, 4 10/23/2012 Active Neuropathy Resolved - Nares - Ixboa0nairu 10/23/201221588Pjafhku added by Discern Expert. Medications Medication Instructions [...] IVPB, Drug 12/02/2012 12/02/2012 Discontinued form: PDR/INJ, [id number], Dosing Weight 100, kg, Start date: 12/02/12 [...] 11/29/2012 11/29/2012 Discontinued SUB-Q, Drug form: INJ, bsecH54U, Dosing Weight 101.364, kg, Start date: 11/29/12 [...] mg, 1 supp, Route: 12/04/2012 12/07/2012 Discontinued [place], Drug form: SUPP, Q4H, Dosing Weight 100, [...] date: 12/04/12 23:39:00, Stop date: 12/04/12 23:39:00 [place] 7.5/325 oral tablet 1 tab, Route: PO, [...] IVPB, Drug 11/29/2012 12/01/2012 Discontinued form: PDR/INJ, [id number], Dosing Weight 100, kg, Start date: 11/29/12 [...] 7:47:00 Phenergan 25 mg rectal 1 supp, CA, Q6H, PRN, 9 11/29/2012 Ordered suppository supp, [...] by the [facility] within the [facility]. The Molecular Diagnostic Laboratory is authorized [...] the clinical guidelines of the [place] [employer].11Interpretive Data: Adult reference range values reflect the clinical guidelines of the [place] [employer].12Interpretive Data: Adult reference range values reflect the clinical guidelines of the [place] [employer].13Interpretive Data: No established reference ranges.14Interpretive [...] Data: Heparin Therapeutic Range: 57 - 92 Hiissyy00Nsltyyyeuzgj Data: Heparin Therapeutic Range: 57 - 92 [...] Catch FREE TEXT SOURCE: FINAL REPORTS Final Ajypsr69,000 - 50,000 CFU/mL Yeast <10,000 CFU/mL Skin EsPRELIMINARY REPORTS Preliminary ReportNo Growth; Holding Procedures Procedures Date Related Diagnosis Heart procedure 1 1cardiac stent for [place]
--- OUTSIDE RECORDS SUMMARY | 2018-12-18 20:41 | XMS REPORT | CCD ---
:1965 Author Organization [facility] Care Team Providers Name Role Phone [...] 10/23/2012 Active Neuropathy Resolved - Nares - Jyxoq0nerto 10/23/201261852Iywsrkz added by Discern Expert. Medications Medication Instructions [...] values reflect the clinical guidelines of the [place] [employer].7Interpretive Data: Adult reference range values reflect the clinical guidelines of the [place] [employer].HEMATOLOGY Most recent to oldest [Reference [...]
--- OUTSIDE RECORDS SUMMARY | 2018-12-18 20:41 | XMS REPORT | CCD ---
:1965 Author Organization [facility] Care Team Providers Name Role Phone JohnbeckiReno rossi Consulting Provider Carlos Hanley Consulting Provider Allergies, Adverse Reactions, Alerts Substance Reaction Status NKDA Active Problem List Condition Effective Dates Status Acid reflux Resolved Anemia Resolved Anxiety Resolved Arthritis Resolved Depression Resolved Diabetes mellitus type 1 Resolved Edema of lower extremity Resolved Fibromyalgia Resolved Gastric ulcer Resolved Hyperlipidemia Resolved Hypertension Resolved [place] - Myocardial infarction 10/22/2012 Resolved MRSA1, 2, 3, 4 10/23/2012 Active Neuropathy Resolved - Nares/ - Yiwsn9wybur 10/23/201268605Caxsaex added by Discern Expert. Medications Medication Instructions [...] 03/08/13 3:17:00, Stop date: 03/08/13 3:17:00 lidocaine-epi 1%-1:[id number] 1 ml, Route: SUB-Q, Drug 03/07/2013 03/07/2013 [...] date: 03/07/13 2:35:00, Stop date: 03/07/13 2:35:00 [place] 5/325 oral tablet 1 tab, PO, Q6H, [...] Results BEDSIDE GLUCOSE TESTING Most recent to [facility] 1 2 3 [Reference Range]: Gluc [...] Reportable Limit: 200 mg/dL.URINALYSIS Most recent to [facility] [Reference Range]: 1 2 3 UA [...] the clinical guidelines of the [place] Diabetes [employer].8Interpretive Data: Adult reference range values reflect the clinical guidelines of the [place] [employer].9Interpretive Data: Adult reference range values reflect the clinical guidelines of the [place] [employer].HEMATOLOGY Most recent to oldest 1 [...]
--- OUTSIDE RECORDS SUMMARY | 2018-12-18 20:42 | XMS REPORT | CCD ---
:1965 Author Organization [facility] Care Team Providers Name Role Phone Alberto [...] 10/23/2012 Active Neuropathy Resolved - Nares - [id number] 10/23/[id number] added by Discern Expert. Medications Medication Instructions Start Date End Date Status acetaminophen-hydrocod 1 tab, Route: PO, Drug Form: 07/12/2013 07/14/2013 Discontinued one 325 mg-5 mg oral TAB, Dosing Weight 86.364, tablet kg, Q4H, PRN Pain, Start date: 07/12/13 18:23:00, Duration: 30 day, Stop date: 08/11/13 18:22:00(Same as: [place] 325/5) Do not exceed 4gm/day of acetaminophen. [...] 1 doses or times, Dose =2.2ml/kg, Max [id number] -- "To be infused by Radiology Staff ONLY" 201207/12/2013 Completed Dose=2.2ml/kg, Max ykac=900tm -- "To be infused by Radiology Staff [...] day, Stop date: 08/11/13 9:00:00(Same as: Lopressor) [place] 5/325 oral 1 tab, Route: PO, Dosing [...] date: 08/11/13 9:00:00(Same as: Mag-Ox 400)Magnesium oxide [id number]=396ms elemental magnesiumDose=____mg magnesium oxide (___mg elemental magnesium) [...] [Negative] Negative 1 (07/13/2013 00:00:59) 1Interpretive Data: [employer] illum[employer]ene Clostridium difficile assay utilizes loop-mediated isothermalDNA amplification (LAMP) technology to detect a 204 bp region of the tcdA gene within the PaLoc genesegment present in all known toxigenic C. difficile strains. The assay utilizes FDA cleared IVD reagents. Performance characteristics have been verified by the Molecular Diagnostic Laboratory within the [facility]. The Molecular Diagnostic Laboratory is authorized [...] /LPF] Many /LPF *ABN* (07/12/2013 03:00:00) [facility] [place] Yeast [None Seen /HPF] Moderate /HPF *ABN* [...] values reflect the clinical guidelines of the [place] [employer].9Interpretive Data: Adult reference range values reflect the clinical guidelines of the [place] [employer].10Interpretive Data: Adult reference range values reflect the clinical guidelines of the [place] [employer].HEMATOLOGY Most recent to oldest [Reference [...] to oldest [Reference Range]: 1 2 3 [place]-HIV 1/2 Ab [Negative] Negative *NA* (07/14/2013 00:27:00) [place]-Hep C Ab [Negative] Negative *NA* (07/14/2013 00:27:00) CDC-HIV 1/2 Ab [Negative] Negative *NA* (07/12/2013 16:02:06)
--- OUTSIDE RECORDS SUMMARY | 2018-12-18 20:42 | XMS REPORT | CCD ---
:1965 Author Organization [facility] Care Team Providers Name Role Phone Sukhwinder Renteria Referring Provider Allergies, Adverse Reactions, Alerts Substance Reaction Status NKDA Active Problem List Condition Effective Dates Status Acid reflux Resolved Anemia Resolved Anxiety Resolved Arthritis Resolved Depression Resolved Diabetes mellitus type 1 Resolved Edema of lower extremity Resolved Fibromyalgia Resolved Gastric ulcer Resolved Hyperlipidemia Resolved Hypertension Resolved [place] - Myocardial infarction 10/22/2012 Resolved MRSA1, 2, 3, 4 10/23/2012 Active Neuropathy Resolved - Nares - [id number] 10/23/201283403Oduxzwn added by Discern Expert. Medications Medication Instructions [...]
--- OUTSIDE RECORDS SUMMARY | 2018-12-18 20:42 | XMS REPORT | CCD ---
:1965 Author Organization [facility] Care Team Providers Name Role Phone Robert Wooten Consulting Provider Allergies, Adverse Reactions, Alerts Substance Reaction Status NKDA Active Problem List Condition Effective Dates Status Acid reflux Resolved Anemia Resolved Anxiety Resolved Arthritis Resolved Depression Resolved Diabetes mellitus type 1 Resolved Edema of lower extremity Resolved Fibromyalgia Resolved Gastric ulcer Resolved Hyperlipidemia Resolved Hypertension Resolved [place] - Myocardial infarction 10/22/2012 Resolved MRSA1, 2, 3, 4 10/23/2012 Active Neuropathy Resolved - Nares - [id number] 10/23/201236462Thfbfqt added by Discern Expert. Medications Medication Instructions [...] values reflect the clinical guidelines of the [place] [employer].HEMATOLOGY Most recent to oldest [Reference [...]
--- OUTSIDE RECORDS SUMMARY | 2018-12-18 20:43 | XMS REPORT ---
:1965 Author Organization [facility] Address [address] [place] [address] [address] [place] [address] Care Team Providers Name Role Phone SHANI [...] (BEAKER) (test 211 mg/dL 70-110 TESTED AT [address] vahn=0403) [facility] [id number] POCT-GLUCOSE [id number] 13:04:00 Test Item Value Reference Range Comments POC-GLUCOSE METER (BEAKER) 282 mg/dL 70-110 TESTED AT [address] (test wdnx=5796) [place] [id number] POCT-GLUCOSE [id number] 14:35:00 Test Item Value Reference Range Comments POC-GLUCOSE METER (BEAKER) 200 mg/dL 70-110 TESTED AT [address] (test vmlu=5700) [place] [address] [id number] 12:24:00 Test Item Value Reference Range Comments SODIUM (BEAKER) (test ncls=667) 136 meq/L 136-145 POTASSIUM (BEAKER) (test oeps=147) 5.4 meq/L 3.5-5.1 CHLORIDE (BEAKER) (test wvqr=480) 102 meq/L 98-107 CO2 (BEAKER) (test mywd=909) 25 meq/L 22-29 [id number] 12:24:00 Test Item Value Reference Range Comments GLUCOSE RANDOM (BEAKER) (test mtmj=884) 353 mg/dL 70-105 BUN AND [id number] 12:24:00 Test Item Value Reference Range Comments BLOOD UREA NITROGEN 14 mg/dL 7-21 ([facility]ANNER) (test lftl=634) CREATININE ([facility]ANNER) (test 1.08 mg/dL 0.57-1.25 clbu=484) EGFR (BANNER) (test 53 mL/min/1.73 sq m ESTIMATED GFR IS NOT lsqq=3116) ACCURATE CREATININE CLEARANCE IN PREDICTING GLOMERULAR FILTRATION RATE. ESTIMATED GFR IS NOT APPLICABLE FOR DIALYSIS PATIENTS. POCT-HEMOGLOBIN [id number] 11:43:00 Test Item Value Reference Range Comments POC-HEMOGLOBIN METER 12.1 g/dL 12.0-15.[address] ([place]) (test pcxa=8816) [place] [address] POCT-GLUCOSE [id number] 11:43:00 Test Item Value Reference Range Comments POC-GLUCOSE METER (BANNER) 320 mg/dL 70-110 Verify with Lab draw/TESTED AT (test bvby=1784) [place] [address] [address] [place] [address]
[2018-12-18 20:49] LABS: Barbiturates NEGATIVE (NEGATIVE); Benzodiazepines NEGATIVE (NEGATIVE); Cocaine NEGATIVE (NEGATIVE); METHAMPHETAM NEGATIVE (NEGATIVE); Methadone NEGATIVE (NEGATIVE); Opiates NEGATIVE (NEGATIVE); Phencyclidine NEGATIVE (NEGATIVE); THC Cannibis NEGATIVE (NEGATIVE); Urine Bacteria <20 /HPF (<20); Urine Culture Reflex Order NOT NEEDED; Urine RBC NONE SEEN /HPF (NONE SEEN)
[2018-12-18 20:51] LABS: Urine Blood NEGATIVE (NEG); Urine Glucose NEGATIVE (NEG); Urine Protein NEGATIVE (NEG)
[2018-12-18 21:32] LABS: Absolute Monocytes 0.7 K/uL (0.1-1.3); Absolute Neutrophil 5.4 K/uL (1.8-8.0); Eosinophils % 3.2 % (0-4.4); Lymphocytes % 31.8 % (15.3-44.8); MPV 8.5 fL (7.6-11.3); Monocytes % 7.3 % (3.3-12.3); RBC Red Blood Cell Count 4.18 M/uL (3.86-4.86)
[2018-12-18] MEDS ORDERED: NA CHLORIDE 0.9% 500 ML ONE (21:36)
[2018-12-18 21:46] LABS: Potassium 3.4 mmol/L (3.5-5.1)
--- NOTE | 2018-12-18 21:57 | ER ---
Nurse's Notes [facility] Name: Ila Pérez Age: 53 yrs Sex: Female : 1965 Arrival Date: 12/18/2018 Time: 18:58 Bed 27 Private MD: Diagnosis: Weakness Presentation: 12/18 18:58 Presenting complaint: EMS states: pt c/o weakness for a week and had 3 controlled falls ca1 today. Pt has chronic back pain. Transition of care: patient was not received from another setting of care. Onset of symptoms was December 18, 2018. Risk Assessment: Do you want to hurt yourself or someone else? Patient reports no desire to harm self or others. Initial Sepsis Screen: Does the patient meet any 2 criteria? No. Patient's initial sepsis screen is negative. Does the patient have a suspected source of infection? No. Patient's initial sepsis screen is negative. Care prior to arrival: Glucose check: 118. 18:58 Method Of Arrival: EMS: [facility] ca1 18:58 Acuity: DEVONTE 3 ca1 Triage Assessment: 18:58 General: Appears in no apparent distress. comfortable, Behavior is calm, cooperative, ca1 appropriate for age. Pain: Complains of pain in back. 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 LMP N/A - Post-menopause ca1 Historical: - Allergies: 19:05 Gluten Protein; ca1 - Home Meds: 21:07 Albuterol Inhl [Active]; aspirin 81 mg Oral chew 1 tab once daily [Active]; benzonatate rv 100 mg Oral cap 1 cap twice a day [Active]; - PMHx: 19:05 Anxiety; Arthritis; Chronic pain; Depression; Diabetes - IDDM; Esophagitis; ca1 Fibromyalgia; gastroporeisis; GERD; heart disease; High Cholesterol; Hypertension; Myocardial infarction; neuropathy; raynaud's; sleep disorder; Tachycardia; TBI; - PSHx: 19:05 ; Gastric Bypass; cataract sx; Carpal Tunnel Repair; Cholecystectomy; ca1 Tonsillectomy; Knee surgery; rotator cuff; trigger finger release; - Immunization history:: Flu vaccine is up to date. - Social history:: Smoking status: Patient uses tobacco products, smokes one pack cigarettes per day. - Ebola Screening: : No symptoms or risks identified at this time. - Family history:: not pertinent. - Hospitalizations: : No recent hospitalization is reported. Screenin:51 Abuse screen: Denies threats or abuse. Denies injuries from another. Nutritional rv screening: No deficits noted. Tuberculosis screening: No symptoms or risk factors identified. Fall Risk None identified. Assessment: 20:50 General: Appears in no apparent distress. comfortable, Behavior is calm, cooperative. rv Pain: Denies pain. Neuro: Level of Consciousness is awake, alert, obeys commands, Oriented to person, place, time, situation. Cardiovascular: Capillary refill < 3 seconds. Respiratory: Airway is patent. GI: No signs and/or symptoms were reported involving the gastrointestinal system. : No signs and/or symptoms were reported regarding the genitourinary system. EENT: No signs and/or symptoms were reported regarding the EENT system. Derm: Skin is intact. Musculoskeletal: Reports weakness in generalized. Vital Signs: 18:58 BP 129 / 83; Pulse 84; Resp 17 S; Temp 98.7; Pulse Ox 100% on R/A; Weight 92.99 kg; ca1 Height 5 ft. 4 in. (162.56 cm); Pain 5/10; 19:30 BP 151 / 88 RA Supine; Pulse 84; Resp 18 S; Pulse Ox 100% on R/A; rv 20:00 BP 94 / 70 RA Supine; Pulse 86; Resp 18 S; Pulse Ox 100% on R/A; rv 21:30 BP 112 / 73 RA Supine; Pulse 87; Resp 18 S; Pulse Ox 100% ; rv 22:19 BP 145 / 75 RA Supine; Pulse 94; Resp 18 S; Pulse Ox 98% on R/A; rv 18:58 Body Mass Index 35.19 (92.99 kg, 162.56 cm) ca1 ED Course: 18:58 Patient arrived in ED. ca1 18:58 Arm band placed on right wrist. ca1 18:59 Chuy Cox MD is Attending Physician. rn 19:01 Triage completed. ca1 19:33 Saúl Zamora RN is Primary Nurse. rv 20:21 CT completed. Patient tolerated procedure well. Patient moved back from CT. mw3 20:21 CT Head Brain wo Cont In Process Unspecified. EDMS 20:51 Patient has correct armband on for positive identification. Bed in low position. Call rv light in reach. Side rails up X 1. Pulse ox on. NIBP on. 21:15 Initial lab(s) drawn, by me, sent to lab. Inserted 18 gauge 8 cm midline to left upper fc basilic vein on second attempt. Line with good blood return and flushes well. first attempt was to right upper basilic, vein accessed but would not thread. 22:19 No provider procedures requiring assistance completed. IV discontinued, intact, rv bleeding controlled, No redness/swelling at site. Pressure dressing applied. Administered Medications: 21:27 Drug: NS 0.9% 500 ml Route: IV; Rate: bolus; Site: left upper arm; rv 22:19 Follow up: IV Status: Completed infusion; IV Intake: 500ml rv Intake: 22:19 IV: 500ml; Total: 500ml. rv Outcome: 21:56 Discharge ordered by . rn 22:20 Discharged to home ambulatory. rv 22:20 Condition: good 22:20 Discharge instructions given to patient, family, Instructed on discharge instructions, follow up and referral plans. Demonstrated understanding of instructions, follow-up care. 22:38 Patient left the ED. rv Signatures: Dispatcher [employer] EDMS Nora Morales, RN RN Chuy Cox MD MD rn Willis, Michelle mw3 Saúl Zamora RN RN rv Meredith Mei RN RN ca1
--- NOTE | 2018-12-18 21:58 | EDPHYS ---
Physician Documentation [facility] Name: Ila Pérez Age: 53 yrs Sex: Female : 1965 Arrival Date: 12/18/2018 Time: 18:58 Bed 27 Private MD: ED Physician Chuy Cox HPI: 12/18 19:57 This 53 yrs old Female presents to ER via EMS with complaints of generalized rn weakness, falls. 19:57 Reports generalized weakness, for long time, has been having frequent falls, I saw her rn a week ago for same thing, no acute findings, has fibromyalgia, and chronic pain, just increased hydrocodone and sleep medication, no syncope/chest pain/sob/abd pain/nausea/vomiting/diarrhea. . Onset: The symptoms/episode began/occurred at an unknown time. Severity of symptoms: At their worst the symptoms were mild in the emergency department the symptoms are unchanged. The patient has experienced similar episodes in the past. The patient has been recently seen by a physician: The patient has been recently seen at the [facility] Emergency Department. 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 LMP N/A - Post-menopause ca1 Historical: - Allergies: 19:05 Gluten Protein; ca1 - Home Meds: 21:07 Albuterol Inhl [Active]; aspirin 81 mg Oral chew 1 tab once daily [Active]; benzonatate rv 100 mg Oral cap 1 cap twice a day [Active]; - PMHx: 19:05 Anxiety; Arthritis; Chronic pain; Depression; Diabetes - IDDM; Esophagitis; ca1 Fibromyalgia; gastroporeisis; GERD; heart disease; High Cholesterol; Hypertension; Myocardial infarction; neuropathy; raynaud's; sleep disorder; Tachycardia; TBI; - PSHx: 19:05 ; Gastric Bypass; cataract sx; Carpal Tunnel Repair; Cholecystectomy; ca1 Tonsillectomy; Knee surgery; rotator cuff; trigger finger release; - Immunization history:: Flu vaccine is up to date. - Social history:: Smoking status: Patient uses tobacco products, smokes one pack cigarettes per day. - Ebola Screening: : No symptoms or risks identified at this time. - Family history:: not pertinent. - Hospitalizations: : No recent hospitalization is reported. ROS: 19:57 Constitutional: Negative for fever, chills, and weight loss, Eyes: Negative for injury, rn pain, redness, and discharge, Neck: Negative for injury, pain, and swelling, Cardiovascular: Negative for chest pain, palpitations, and edema, Respiratory: Negative for shortness of breath, cough, wheezing, and pleuritic chest pain, Abdomen/GI: Negative for abdominal pain, nausea, vomiting, diarrhea, and constipation, MS/Extremity: Negative for injury and deformity, Skin: Negative for injury, rash, and discoloration, Neuro: Negative for headache,numbness, tingling, and seizure. Exam: 19:57 Constitutional: This is a well developed, well nourished patient who is awake, alert, rn and in no acute distress. Head/Face: Normocephalic, atraumatic. Eyes: Pupils equal round and reactive to light, extra-ocular motions intact. Lids and lashes normal. Conjunctiva and sclera are non-icteric and not injected. Cornea within normal limits. Periorbital areas with no swelling, redness, or edema. ENT: dry MM Cardiovascular: Regular rate and rhythm. No pulse deficits. Respiratory: Lungs have equal breath sounds bilaterally, clear to auscultation. No increased work of breathing, no retractions or nasal flaring. Abdomen/GI: soft, non-tender MS/ Extremity: Pulses equal, no cyanosis. Neurovascular intact. Full, normal range of motion. Equal circumference. Neuro: Awake and alert, GCS 15, oriented to person, place, time, and situation. Cranial nerves II-XII grossly intact. Motor strength 5/5 in all extremities. Sensory grossly intact. Cerebellar exam normal. Vital Signs: 18:58 BP 129 / 83; Pulse 84; Resp 17 S; Temp 98.7; Pulse Ox 100% on R/A; Weight 92.99 kg; ca1 Height 5 ft. 4 in. (162.56 cm); Pain 5/10; 19:30 BP 151 / 88 RA Supine; Pulse 84; Resp 18 S; Pulse Ox 100% on R/A; rv 20:00 BP 94 / 70 RA Supine; Pulse 86; Resp 18 S; Pulse Ox 100% on R/A; rv 21:30 BP 112 / 73 RA Supine; Pulse 87; Resp 18 S; Pulse Ox 100% ; rv 22:19 BP 145 / 75 RA Supine; Pulse 94; Resp 18 S; Pulse Ox 98% on R/A; rv 18:58 Body Mass Index 35.19 (92.99 kg, 162.56 cm) ca1 MDM: 18:59 Patient medically screened. rn 19:46 ED course: U/S tech reports sees flow to left ovary, + fluid around ovary with small rn follicles. . 21:55 Differential Diagnosis dehydration, medication side effect, chronic pain syndrome. Data rn reviewed: vital signs, nurses notes, lab test result(s), EKG, radiologic studies, CT scan, and as a result, I will discharge patient. Counseling: I had a detailed discussion with the patient and/or guardian regarding: the historical points, exam findings, and any diagnostic results supporting the discharge/admit diagnosis, lab results, radiology results, the need for outpatient follow up, to return to the emergency department if symptoms worsen or persist or if there are any questions or concerns that arise at home. Special discussion: I discussed with the patient/guardian in detail that at this point there is no indication for admission to the hospital. It is understood, however, that if the symptoms persist or worsen the patient needs to return immediately for re-evaluation. Based on the history and exam findings, there is no indication for further emergent testing or inpatient evaluation. I discussed with the patient/guardian the need to see the neurologist for further evaluation of the symptoms. I discussed with the patient/guardian the need to see the primary care provider for further evaluation of the symptoms. ED course: Most likely medication induced weakness, no acute findings in 2 visits recently, urged her to watch her medication and f/u with pcp and neuro. . 12/18 19:21 Order name: CBC with Diff; Complete Time: 21:50 rn 12/18 19:21 Order name: Basic Metabolic Panel; Complete Time: 21:50 rn 12/18 19:21 Order name: Urine Drug Screen; Complete Time: 21:50 rn 12/18 19:21 Order name: Urine Microscopic Only; Complete Time: 21:50 rn 12/18 19:21 Order name: CT Head Brain wo Cont; Complete Time: 20:38 rn 12/18 20:39 Order name: Urine Dipstick--Ancillary (enter results); Complete Time: 21:50 ar5 12/18 19:21 Order name: IV Start; Complete Time: 21:27 rn 12/18 19:21 Order name: Urine Dipstick-Ancillary (obtain specimen); Complete Time: 21: rn 12/18 19:21 Order name: EKG; Complete Time: 19: rn 12/18 19:21 Order name: EKG - Nurse/Tech; Complete Time: : rn Administered Medications: : Drug: NS 0.9% 500 ml Route: IV; Rate: bolus; Site: left upper arm; rv 22:19 Follow up: IV Status: Completed infusion; IV Intake: 500ml rv Disposition: 12/18/18 21:56 Discharged to Home. Impression: Weakness. - Condition is Stable. - Discharge Instructions: Weakness. - Medication Reconciliation Form, Thank You Letter, Antibiotic Education, Prescription Opioid Use form. - Follow up: Private Physician; When: As needed; Reason: Recheck today's complaints, Re-evaluation by your physician. - Problem is an ongoing problem. - Symptoms have improved. Signatures: Dispatcher [employer] EDChuy Mauricio MD MD rn Vicente, Ronaldo, RN RN rv Acob, MARTÍNEZ Harper RN ca1 Corrections: (The following items were deleted from the chart) 22:38 21:56 12/18/2018 21:56 Discharged to Home. Impression: Weakness. Condition is Stable. rv Forms are Medication Reconciliation Form, Thank You Letter, Antibiotic Education, Prescription Opioid Use. Follow up: Private Physician; When: As needed; Reason: Recheck today's complaints, Re-evaluation by your physician. Problem is an ongoing problem. Symptoms have improved. rn
[2018-12-19 00:40] VITALS: TEMP 98.7
[2018-12-19 00:45] VITALS: BP 145/75; O2SAT 98
--- NOTE | 2018-12-19 05:51 | EKG ---
Test Date: 2018-12-18 Test Time: 19:47:18 Rental Sales Representative: HARLEY MEASUREMENT RESULTS: Intervals: Rate: 81 ID: [id number] QRSD: 88 QT: 378 QTc: 439 [place]: P: 64 ID: [id number] QRS: 43 T: 28 INTERPRETIVE STATEMENTS: Normal sinus rhythm Possible Left atrial enlargement Borderline ECG Compared to ECG 12/12/2018 12:03:48 Right-axis deviation no longer present Electronically Signed On 12-19-18 05:50:33 CDT by Cassius Perea
== END 2018-12-18 22:38 | disposition home or self-care (01) ==
LOC: ER 18:46
DX: R53.1 Weakness (principal); I10 Essential (primary) hypertension; E11.9 Type 2 diabetes mellitus without complications; I51.9 Heart disease, unspecified; F17.210 Nicotine dependence, cigarettes, uncomplicated; Z79.82 Long term (current) use of aspirin; Z91.018 Allergy to other foods
CPT/HCPCS: 36415; 70450; 80048; 80307; 81003; 81015; 85025; 93005; 96360; 99284

== ENCOUNTER 2019-01-29 20:52 | Inpatient (IN) | payer OTHER ==
--- OUTSIDE RECORDS SUMMARY | 2019-01-29 20:55 | XMS REPORT | Clinical Summary ---
:1965 Author Organization [facility] Address [address] [place] [address] Care Team Providers Name Role Phone Fabián [...] 05/31/2018 Surgery Gastroenterology Boone Barahona UPPER ENDOSCOPY [facility] 05/31/2018 Hospital Encounter Gastroenterology Boone Barahona [facility] 05/24/2018 Hospital Encounter Pre-Admission Testing Resource, [facility] Preadmit Phone after 01/28/2018 Social History Tobacco Use Types Packs/Day Years [...] procedure are in the results section. after 01/28/2018 Results POC-Glucose meter (05/31/2018 2:40 PM CDT)Only the most recent of2 resultswithin the time period is included. POC-Glucose Meter 211 (H)Comment: TESTED AT 70 - 110 mg/dL [facility] [address] [facility] [id number] Specimen Blood Performing Organization Address City/State/Zipcode Phone Number [facility] [address] [place] [address] [phone] CENTER REPORT OF PROCEDURE - ENDOSCOPY URL (05/31/2018 2:37 PM CDT) Narrative Performed At after 01/28/2018 Insurance Payer Benefit Plan / Group Subscriber ID Type Phone Address [facility] - MEDICARE AARP/MEDICARE COMPLETE xxxxxxxxx [facility]GD CARE Advance Directives For more information, please contact:[address] [phone] Code Status Date Activated Date Inactivated Comments Full Code 06/25/2017 10:56 AM 06/25/2017 5:59 PM This code status was determined by: Patient
[2019-01-29] MEDS ORDERED: NA CHLORIDE 0.9% 1,000 ML ONE (21:42)
[2019-01-29 22:00] LABS: Absolute Lymphocytes (CBC) 1.2 K/uL (0.7-4.9); Absolute Monocytes 0.4 K/uL (0.1-1.3); Absolute Neutrophil 5.8 K/uL (1.8-8.0); Basophils % 0.8 % (0-1.3); Hematocrit 41.9 % (36.0-45.0); Lymphocytes % 16.4 % (15.3-44.8); MPV 10.5 fL (7.6-11.3); Monocytes % 5.4 % (3.3-12.3); RBC Red Blood Cell Count 5.13 M/uL (3.86-4.86)
[2019-01-29] MEDS ORDERED: METOCLOPRAMIDE 10 MG/2mL INJ ONE (22:15)
[2019-01-29] MEDS ORDERED: NA CHLORIDE 0.9% 2,000 ML ONE (22:15)
[2019-01-29] MEDS ORDERED: INSULIN -REGULAR HUMAN 50 UNIT/0.5 ML ML ONE (22:16)
[2019-01-29 22:21] LABS: Creatine Phosphokinase 67 U/L (26-192); Troponin (Emerg Dept Use Only) < 0.02 ng/mL (0.0-0.045)
[2019-01-29 22:34] LABS: Albumin 3.5 g/dL (3.4-5.0); Bilirubin Direct 0.3 mg/dL (0-0.2); Bilirubin Total 0.7 mg/dL (0.2-1.0); Potassium 3.9 mmol/L (3.5-5.1); Protein, Total 7.9 g/dL (6.4-8.2)
--- OUTSIDE RECORDS SUMMARY | 2019-01-29 22:49 | XMS REPORT | Continuity of Care Document ---
:1965 Author Organization Interface Problems Problem Status Onset Classification Date Comments Source Date Reported PAIN IN Active 08/13/20 [facility] ABDOMEN/NAUSEA/TI Medical GHTENESS IN [facility] Center BDDC/GASTROESOPHA Active 07/24/20 [facility] GEAL REFLUX Medical DISEASE Center VOMITING Active 07/11/[address] GASTROPARESIS Active 07/11/[address] CHEST PAIN Active 04/02/[address] Center R/O ACS Active 04/02/[address] HYPERGLYCEMIA Active 03/06/20 [facility] DEHYDRATION [address] [place] [address] GASTROPARESIS Center SOB/CHEST PAIN Active 03/06/[address] NASEAU Active 01/11/[address] N/V Active 11/29/[address] VOMITTING, Active 11/29/19 [facility] DIABETIC, HEART [address] [place] [address] PT Center ACS R/O AND Active 11/17/19 [facility] PERSISTANT N/V [address] [place] [address] NAUSEA, VOMITTING Active 11/17/[address] MRSA<sup>1, Active 10/23/19 Problem 11/19/2012 2Problem [facility] </sup><sup>2</sup 13 added by Medical [facility] Center Expert. MRSA<sup>1, 2, 3, Active 10/23/19 Problem 08/15/2013 4Problem [facility] 4</sup> 13 added by Medical [facility] Center Expert. MRSA<sup>1, Active 10/23/19 Problem 04/05/2013 4Problem [facility] </sup><sup>2, 13 added by Medical </sup><sup>3, [facility] </sup><sup>4</sup Expert. > N/V DEHYDRATION Active 10/22/[address] [place] - Myocardial Resolved 10/22/19 Problem 08/15/2013 [facility] infarction [address] [place] [address] [place] - Myocardial Resolved 10/22/19 Problem 04/05/[address] DSU/ REFLUX Active 06/13/[address] MORBID OBESITY Active 01/19/[address] Acid reflux Resolved Problem 04/05/2013 [facility] Anemia Resolved Problem 04/05/2013 [facility] Anxiety Resolved Problem 04/05/2013 [facility] Arthritis Resolved Problem 04/05/2013 [facility] Depression Resolved Problem 04/05/2013 [facility] Diabetes mellitus Resolved Problem 04/05/[address] Edema of lower Resolved Problem 04/05/2013 [facility] Fibromyalgia Resolved Problem 04/05/2013 [facility] Hyperlipidemia Resolved Problem 04/05/2013 [facility] Hypertension Resolved Problem 04/05/2013 [facility] Acid reflux Resolved Problem 08/15/2013 [facility] Anemia Resolved Problem 08/15/2013 [facility] Anxiety Resolved Problem 08/15/2013 [facility] Arthritis Resolved Problem 08/15/2013 [facility] Depression Resolved Problem 08/15/2013 [facility] Diabetes mellitus Resolved Problem 08/15/[address] Edema of lower Resolved Problem 08/15/2013 [facility] Fibromyalgia Resolved Problem 08/15/2013 [facility] Gastric ulcer Resolved Problem 08/15/2013 [facility] Hyperlipidemia Resolved Problem 08/15/2013 [facility] Hypertension Resolved Problem 08/15/2013 [facility] Neuropathy Resolved Problem 08/15/2013 [facility] Gastric ulcer Resolved Problem 04/05/2013 [facility] Neuropathy Resolved Problem 04/05/2013 [facility] CHEST PAIN NOS Active [facility] MORBID OBESITY Active [facility] NAUSEA WITH Active [facility] VOMITING [facility] OTHER GENERAL Active [facility] Medications Medication Details Route Status Patient Ordering Order Source Instructions Provider Date Zofran 4 mg 4 mg=1 tab, PO, Active De La Garza [facility] oral tablet BID, # 10 tab, 0 2012 Medical Refill(s) Center Reglan 10 mg 10 mg=1 tab, PO, Active De La Garza 08/13[facility] oral tablet QID, # 40 tab, 0 2012 Medical Refill(s) Center IDS med 5 mg, 1 mL, Inactive Ruggiero [facility] Rate: 30 ml/hr, 2012 Medical [...] Inactive [facility] oral tablet Route: PO, Drug 2012 Medical form: TAB, Center TID-Before Meals, Dosing Weight 86.364, kg, Start date: 07/14/13 11:30:00, Duration: 30 day, Stop date: 08/13/13 7:30:00(Same as: Reglan) Take 30 min before meals Levemir 15 unit, 0.15 No Longer [facility] mL, Route: Active 2012 Medical SUB-Q, Drug Center form: INJ, BID, Dosing Weight 86.364, kg, Start date: 07/13/13 21:00:00, Duration: 30 day, Stop date: 08/12/13 9:00:00Same as Levemir "single patient use only" pneumococcal 0.5 ml, Route: No Longer SYSTEM [facility] 23-valent IM, Drug Form: Active 2012 Medical vaccine INJ, Start date: [facility] 07/13/13 9:00:00, Stop date: 07/13/13 9:00:00 influenza virus 0.5 ml, Route: No Longer SYSTEM 07/13[facility] vaccine, IM, Drug Form: Active 2012 Medical inactivated SUSP, Start Center date: 07/13/13 9:00:00, Stop date: 07/13/13 9:00:00 lisinopril 20 mg, 1 tab, No Longer [facility] Route: PO, Drug Active 2012 Medical form: TAB, Center Daily, Dosing Weight 86.364, kg, Start date: 07/13/13 9:00:00, Duration: 30 day, Stop date: 08/11/13 9:00:00(Same as: Prinivil, Zestril) metoprolol 50 mg, Route: No Longer [facility] tartrate PO, Drug form: Active 2012 Medical TAB, Daily, Center Dosing Weight 86.364, kg, Start date: 07/13/13 9:00:00, Duration: 30 day, Stop date: 08/11/13 9:00:00 Lyrica 150 mg, 2 cap, No Longer [facility] Route: PO, Drug Active 2012 Medical form: CAP, BID, Center Dosing Weight 86.364, kg, Start date: 07/13/13 9:00:00, Duration: 30 day, Stop date: 08/11/13 17:00:00(Same as: Lyrica) potassium 20 mEq, 1 tab, No Longer [facility] chloride Route: PO, Drug Active 2012 Medical form: ERTAB, Center Daily, Dosing Weight 86.364, kg, Start date: 07/13/13 9:00:00, Duration: 30 day, Stop date: 08/11/13 9:00:00(Same as: K-Dur 20) "Do Not Crush" With food and full glass of water Effient 10 mg, 1 tab, No Longer [facility] Route: PO, Drug Active 2012 Medical form: TAB, Center Daily, Dosing Weight 86.364, kg, Start date: 07/13/13 9:00:00, Duration: 30 day, Stop date: 08/11/13 9:00:00Same as Effient For patients 60kg, without history of TIA/Ischemic stroke and without likely bypass surgery Protonix 40 mg, 1 tab, No Longer [facility] Route: PO, Drug Active 2012 Medical form: ECTAB, Center BID-Before Meals, Dosing Weight 86.364, kg, Start date: 07/13/13 9:00:00, Stop date: 08/11/13 16:30:00Tablet should not be chewed or crushed. (Same as: Protonix) meloxicam 7.5 mg, Route: No Longer [facility] PO, Drug form: Active 2012 Medical TAB, BID, Dosing Center Weight 86.364, kg, Start date: 07/13/13 9:00:00, Duration: 30 day, Stop date: 08/11/13 17:00:00 magnesium oxide 400 mg, 1 tab, No Longer [facility] Route: PO, Drug Active 2012 Medical form: TAB, Center Daily, Dosing Weight 86.364, kg, Start date: 07/13/13 9:00:00, Duration: 30 day, Stop date: 08/11/13 9:00:00(Same as: Mag-Ox 400) Magnesium oxide [id number] elemental magnesium Dose=____mg magnesium oxide (___mg elemental magnesium) furosemide 40 40 mg, 1 tab, No Longer [facility] mg oral tablet Route: PO, Drug Active 2012 Medical form: TAB, Center Daily, Dosing Weight 86.364, kg, Start date: 07/13/13 9:00:00, Duration: 30 day, Stop date: 08/11/13 9:00:00(Same as: Lasix) May cause GI upset. Give with food or milk. ferrous sulfate 325 mg, 1 tab, No Longer [facility] Route: PO, Drug Active 2012 Medical form: ECTAB, [facility] TID, Dosing Weight 86.364, kg, Start date: 07/13/13 9:00:00, Duration: 30 day, Stop date: 08/11/13 17:00:00Give with food. "Do Not Crush" clonazepam 0.5 mg, 1 tab, No Longer [facility] Route: PO, Drug Active 2012 Medical form: TAB, TID, Center Dosing Weight 86.364, kg, Start date: 07/13/13 9:00:00, Duration: 30 day, Stop date: 08/11/13 17:00:00(Same As: Klonopin) Insulin regular 5 unit, 0.05 mL, No Longer [facility] Route: SUB-Q, Active 2012 Medical [...] Reglan 10 mg, 2 mL, No Longer [facility] Route: IVP, Drug Active 2012 Medical form: INJ, Q6H, Center Dosing Weight 86.364, kg, Start date: 07/13/13 0:00:00, Duration: 30 day, Stop date: 08/11/13 18:00:00(Same as: Reglan) normal saline 1,000 mL, Rate: No Longer [facility] 0.9% IV 1,000 200 ml/hr, Active 2012 Medical mL Infuse over: 5 Center hr, Route: IV, Dosing Weight 86.364 kg, Total Volume: 1,000, Start date: 07/12/13 21:08:00, Duration: 3 doses or times, Stop date: 07/13/13 12:07:00 metoprolol 50 mg, 1 tab, No Longer Adolfo [facility] tartrate Route: PO, Drug Active 2012 Medical form: TAB, Q12H, Center Dosing Weight 86.364, kg, Start date: 07/12/13 21:00:00, Duration: 30 day, Stop date: 08/11/13 9:00:00(Same as: Lopressor) Levemir 12 unit, 0.12 No Longer [facility] mL, Route: Active 2012 Medical SUB-Q, Drug [facility] form: INJ, BID, Dosing Weight 86.364, kg, Start date: 07/12/13 21:00:00, Duration: 30 day, Stop date: 08/11/13 9:00:00Same as Levemir "single patient use only" Cymbalta 120 mg, 2 cap, No Longer [facility] Route: PO, Drug Active 2012 Medical form: DRC, Center Bedtime, Dosing Weight 86.364, kg, Start date: 07/12/13 21:00:00, Duration: 30 day, Stop date: 08/10/13 21:00:00Non Formulary Drug (Same as: Cymbalta) (Do Not Crush) ProAir HFA 90 2 puff, Route: No Longer [facility] mcg/inh INHALATION, Drug Active 2012 Medical inhalation Form: AERO/A, Center aerosol with Dosing Weight adapter 86.364, kg, QID, PRN Shortness of breath, Start date: 07/12/13 20:09:00, Duration: 30 day, Stop date: 08/11/13 20:08:00Albutero l 90 microgram/inh 8gm HFA Same as: Alessio Arevalotil aspirin 81 mg 81 mg, 1 tab, No Longer [facility] tablet, enteric Route: PO, Drug Active 2012 Medical coated form: ECTAB, [place] Daily, Dosing Weight 86.364, kg, Start date: 07/12/13 20:00:00, Duration: 30 day, Stop date: 08/11/13 9:00:00Do not crush or chew. (Same As: Ecotrin) glucagon 1 mg, Route: IM, No Longer [facility] Drug form: Active 2012 Medical PDR/INJ, PRN, Center Dosing Weight 86.364, kg, PRN Blood Glucose Results, Start date: 07/12/13 18:26:00, Duration: 30 day, Stop date: 08/11/13 18:25:00 Dextrose 50% 12.5 gm, 25 mL, No Longer [facility] Syringe Route: IVP, Drug Active 2012 Medical Form: INJ, Center Dosing Weight 86.364, kg, PRN, PRN Blood Glucose Results, Start date: 07/12/13 18:26:00, Duration: 30 day, Stop date: 08/11/13 18:25:00 insulin aspart 4 unit, 0.04 mL, No Longer [facility] Route: SUB-Q, Active 2012 Medical Drug form: SOLN, [place] TID-Before Meals, Dosing Weight 86.364, kg, PRN [...] Longer [facility] oral tablet Route: PO, Drug Active 2012 Medical form: TAB, Q4H, Center Dosing Weight 86.364, kg, PRN as needed for pain, Start date: 07/12/13 18:24:00, Duration: 30 day, Stop date: 08/11/13 18:23:00Not to exceed 400mg/day. (Same As: Ultram) acetaminophen-h 1 tab, Route: No Longer [facility] ydrocodone 325 PO, Drug Form: Active 2012 Medical mg-5 mg oral TAB, Dosing Center tablet Weight 86.364, kg, Q4H, PRN Pain, Start date: 07/12/13 18:23:00, Duration: 30 day, Stop date: 08/11/13 18:22:00(Same as: Kincaid 325/5) Do not exceed 4gm/day of acetaminophen. Flexeril 10 mg, 1 tab, No Longer [facility] Route: PO, Drug Active 2012 Medical form: TAB, TID, Center Dosing Weight 86.364, kg, PRN Spasm, Start date: 07/12/13 18:23:00, Duration: 30 day, Stop date: 08/11/13 18:22:00(Same As: Flexeril) benzonatate 100 mg, 1 cap, No Longer [facility] Route: PO, Drug Active 2012 Medical form: CAP, TID, Center Dosing Weight 86.364, kg, PRN as needed for cough, Start date: 07/12/13 18:23:00, Duration: 30 day, Stop date: 08/11/13 18:22:00(Same As: Oleksandr Francis) "Do Not Crush" Saline Flush 5 ml, Route: No Longer [facility] 0.9% IVP, Drug Form: Active 2012 Medical INJ, Dosing Center Weight 86.364, kg, PRN, PRN Line Flush, Start date: 07/12/13 18:22:00, Duration: 30 day, Stop date: 08/11/13 18:21:00(Same as: BD Posiflush) ondansetron 4 mg, 2 mL, No Longer [facility] Route: IVP, Drug Active 2012 Medical form: INJ, Q8H, Center Dosing Weight 86.364, kg, PRN Nausea & Vomiting, Start date: 07/12/13 18:22:00, Duration: 30 day, Stop date: 08/11/13 18:21:00(Same as: Zofran) aspirin 81 mg 81 mg, 1 tab, Active [facility] tablet, enteric PO, Daily, 0 2012 Medical coated tab, Center Substitution Allowed, ECTAB Klor-Con M20 20 mEq, 1 tab, No Longer [facility] [place] oral tablet, PO, Daily, 180 Active 2012 Medical extended tab, Center release Substitution Allowed, ERTAB furosemide 40 40 mg, 1 tab, No Longer [facility] mg oral tablet PO, Daily, 30 Active 2012 Medical tab, Center Substitution Allowed, TAB benzonatate 100 PO, TID, PRN, 1 Active [facility] mg oral capsule to 2 tabs, prn, 2012 Medical Substitution Center Allowed1 to 2 tabs metoprolol 50 mg, 1 tab, No Longer [facility] tartrate 50 mg PO, Daily, 180 Active 2012 Medical oral tablet tab, Center Substitution Allowed, TAB Reglan 10 mg, 2 mL, Inactive Clover Simmons [facility] Route: IVP, Drug 2012 Medical form: INJ, ONCE, Center Dosing Weight 86.364, kg, Priority: STAT, Start date: 07/12/13 12:12:00, Stop date: 07/12/13 12:12:00(Same as: Reglan) Zofran 4 mg, Route: Inactive Felicia 07/12[facility] IVP, Drug form: 2012 Medical INJ, ONCE, Center Dosing Weight 86.364, kg, Priority: STAT, Start date: 07/12/13 10:52:00, Stop date: 07/12/13 10:52:00 morphine 4 mg, Route: Inactive [facility] 07/12[facility] Sulfate IVP, Drug form: 2012 Medical INJ, ONCE, Center Dosing Weight 86.364, kg, Priority: STAT, Start date: 07/12/13 10:51:00, Stop date: 07/12/13 10:51:00 Zofran 4 mg, 2 mL, Inactive Clover Simmons 07/12[facility] Route: IVP, Drug 2012 Medical form: [...] Stop date: 07/12/13 11:05:00, Bolus DoseBolus Dose Kincaid 5/325 1 tab, Route: Inactive Clover Simmons [...] ODT 8 mg, Route: PO, Inactive Tiara [facility] Drug form: 2012 Medical TABDIS, ONCE, Center Dosing Weight 86.364, kg, Priority: STAT, Start date: 07/12/13 6:56:00, Stop date: 07/12/13 6:56:00 Levemir 10 unit, 0.1 mL, Inactive Tiara 07/12[facility] Route: SUB-Q, 2012 Medical Drug form: INJ, Center ONCE, Dosing Weight 86.364, kg, Start date: 07/12/13 4:20:00, Stop date: 07/12/13 4:20:00Same as Levemir "single patient use only" Omnipaque 100 mL, Route: Inactive [place] 07/12[facility] Fei 350mg/ml IVP, Drug Form: 2012 Medical SOLN, Dosing Center Weight 86.364, kg, ONCALL, STAT, Start date: 07/12/13 4:18:00, Duration: 1 doses or times, Dose=2.2ml/kg, Max [id number] -- "To be infused by Radiology Staff ONLY"Dose=2.2ml/ kg, Max [id number] -- "To be infused by Radiology Staff [...] mg, 1 tab, PO No Longer Omidvar [facility] Route: PO, Drug Active 2012 Medical form: TAB, Center Daily, Dosing Weight 90, kg, Start date: 04/03/13 9:00:00, Duration: 30 day, Stop date: 05/02/13 9:00:00 Lyrica 150 mg, 2 cap, PO No Longer Omidvar [facility] Route: PO, Drug Active 2012 Medical form: CAP, BID, Center Dosing Weight 90, kg, Start date: 04/03/13 9:00:00, Duration: 30 day, Stop date: 05/02/13 17:00:00 Protonix 40 mg, 1 tab, PO No Longer Omidvar [facility] Route: PO, Drug Active 2012 Medical form: ECTAB, Center BID, Dosing Weight 90, kg, Start date: 04/03/13 9:00:00, Duration: 30 day, Stop date: 05/02/13 17:00:00 metoclopramide 10 mg, 1 tab, PO No Longer Omidvar [facility] 10 mg oral Route: PO, Drug Active 2012 Medical tablet form: TAB, TID, Center Dosing Weight 90, kg, Start date: 04/03/13 9:00:00, Duration: 30 day, Stop date: 05/02/13 17:00:00 meloxicam 7.5 mg, 1 tab, PO No Longer Omidvar [facility] Route: PO, Drug Active 2012 Medical form: TAB, BID, Center Dosing Weight 90, kg, Priority: Routine, Start date: 04/03/13 9:00:00, Duration: 30 day, Stop date: 05/02/13 17:00:00 lisinopril 20 mg, Route: PO No Longer Omidvar [facility] PO, Drug form: Active 2012 Medical TAB, Daily, Center Dosing Weight 90, kg, Start date: 04/03/13 9:00:00, Duration: 30 day, Stop date: 05/02/13 9:00:00 Levemir 12 unit, Route: SUB-Q No Longer Omidvar [facility] SUB-Q, BID, Active 2012 Medical Dosing Weight Center 90, kg, Start date: 04/03/13 9:00:00, Duration: 30 day, Stop date: 05/02/13 17:00:00 ferrous sulfate 325 mg, 1 tab, PO No Longer [facility] Route: PO, Drug Active 2012 Medical form: ECTAB, [place] TID, Dosing Weight 90, kg, Start date: 04/03/13 9:00:00, Duration: 30 day, Stop date: 05/02/13 17:00:00 clonazepam 0.5 mg, 1 tab, PO No Longer [facility] Route: PO, Drug Active 2012 Medical form: TAB, TID, Center Dosing Weight 90, kg, Start date: 04/03/13 9:00:00, Duration: 30 day, Stop date: 05/02/13 17:00:00 NovoLog 6 unit, 0.06 mL, SUB-Q No Longer Omidvar [facility] Route: SUB-Q, Active 2012 [facility], Dosing Weight 90, kg, Start date: 04/03/13 7:30:00, Duration: 30 day, Stop date: 05/02/13 16:30:00 heparin 5000 5,000 unit, 1 SUB-Q No Longer Omidvar [facility] units/mL mL, Route: Active 2012 Medical injectable SUB-Q, Drug [facility] solution form: INJ, Q8H, Dosing Weight 90, kg, Start date: 04/03/13 0:00:00, Duration: 30 day, Stop date: 05/02/13 16:00:00 Cymbalta 120 mg, 2 cap, PO No Longer [facility] Route: PO, Drug Active 2012 Medical form: DRC, [place] Bedtime, Dosing Weight 90, kg, Start date: 04/02/13 23:30:00, Duration: 30 day, Stop date: 05/02/13 21:00:00 Zocor 40 mg, 1 tab, PO No Longer [facility] Route: PO, Drug Active 2012 Medical form: TAB, Center Bedtime, Dosing Weight 90, kg, Start date: 04/02/13 21:00:00, Duration: 30 day, Stop date: 05/01/13 21:00:00 Cymbalta 60 mg, 1 cap, PO No Longer Omidvar [facility] Route: PO, Drug Active 2012 Medical form: DRC, Center Bedtime, Dosing Weight 90, kg, Start date: 04/02/13 21:00:00, Duration: 30 day, Stop date: 05/01/13 21:00:00 magnesium oxide 400 mg, 1 tab, PO No Longer Omidvar [facility] Route: PO, Drug Active 2012 Medical form: TAB, Center Daily, Dosing Weight 90, kg, Priority: NOW, Start date: 04/02/13 20:45:00, Duration: 30 day, Stop date: 05/02/13 9:00:00 Levemir 12 unit, 0.12 SUB-Q No Longer Omidvar [facility] mL, Route: Active 2012 Medical SUB-Q, Drug Center form: INJ, BID, Dosing Weight 90, kg, Start date: 04/02/13 20:45:00, Duration: 30 day, Stop date: 05/02/13 17:00:00 hydrALAZINE 10 mg, 0.5 mL, IVP No Longer Omidvar [facility] Route: IVP, Drug Active 2012 Medical form: INJ, Q4H, Center Dosing Weight 90, kg, PRN Hypertension, Start date: 04/02/13 20:37:00, Duration: 30 day, Stop date: 05/02/13 20:36:00 lisinopril 20 mg, 1 tab, PO No Longer Omidvar [facility] Route: PO, Drug Active 2012 Medical form: TAB, Center Daily, Dosing Weight 90, kg, Start date: 04/02/13 20:30:00, Duration: 30 day, Stop date: 05/02/13 9:00:00 metoprolol 12.5 mg, 1 ea, PO No Longer Omidvar [facility] tartrate Route: PO, Drug Active 2012 Medical form: TAB, BID, Center Dosing Weight 90, kg, Start date: 04/02/13 20:30:00, Duration: 30 day, Stop date: 05/02/13 17:00:00 insulin aspart 8 unit, 0.08 mL, SUB-Q No Longer Omidvar [facility] Route: SUB-Q, Active 2012 Medical Drug form: SOLN, Center TID-Before Meals, Dosing Weight 90, kg, PRN Blood Glucose Results, Start date: 04/02/13 20:30:00, Duration: 30 day, Stop date: 05/02/13 20:29:00 glucagon 1 mg, Route: IM, IM No Longer Omidvar [facility] Drug form: Active 2012 Medical PDR/INJ, PRN, Center Dosing Weight 90, kg, PRN Blood Glucose Results, Start date: 04/02/13 20:30:00, Duration: 30 day, Stop date: 05/02/13 20:29:00 Dextrose 50% 25 gm, 50 mL, IVP No Longer Omidvar [facility] Syringe Route: IVP, Drug Active 2012 Medical Form: INJ, Center Dosing Weight 90, kg, PRN, PRN Blood Glucose Results, Start date: 04/02/13 20:30:00, Duration: 30 day, Stop date: 05/02/13 20:29:00 Insulin regular 8 unit, Route: SUB-Q No Longer Omidvar [facility] SUB-Q, Active 2012 Medical TID-Before Center Meals, Dosing Weight 90, kg, PRN Blood Glucose Results, Start date: 04/02/13 20:29:00, Duration: 30 day, Stop date: 05/02/13 20:28:00 glucagon 1 mg, Route: IM, IM No Longer Omidvar [facility] PRN, Dosing Active 2012 Medical Weight 90, kg, Center PRN Blood Glucose Results, Start date: 04/02/13 20:29:00, Duration: 30 day, Stop date: 05/02/13 20:28:00 Dextrose 50% 50 mL, Route: IVP No Longer [facility] 04/03[facility] Syringe IVP, Dosing Active 2012 Medical Weight 90, kg, Center PRN, PRN Blood Glucose Results, Start date: 04/02/13 20:29:00, Duration: 30 day, Stop date: 05/02/13 20:28:00 Zofran 4 mg, 2 mL, IV No Longer Omidvar [facility] Route: IV, Drug Active 2012 Medical form: INJ, Q8H, Center Dosing Weight 90, kg, PRN Nausea, Start date: 04/02/13 20:29:00, Duration: 30 day, Stop date: 05/02/13 20:28:00 Maalox Advanced 30 mL, Route: PO No Longer Omidvar [facility] Regular PO, Drug Form: Active 2012 Medical Strength SUSP SUSP, Dosing Center Weight 90, kg, QID, PRN Indigestion, Start date: 04/02/13 20:28:00, Duration: 30 day, Stop date: 05/02/13 20:27:00 Flexeril 10 mg, 1 tab, PO No Longer Omidvar [facility] Route: PO, Drug Active 2012 Medical form: TAB, TID, Center Dosing Weight 90, kg, PRN Spasm, Start date: 04/02/13 20:22:00, Duration: 30 day, Stop date: 05/02/13 20:21:00 acetaminophen-h 1 tab, Route: PO No Longer Omidvar [facility] ydrocodone 325 PO, Drug Form: Active 2012 Medical mg-5 mg oral TAB, Dosing Center tablet Weight 90, kg, Q4H, PRN Pain, Start date: 04/02/13 20:22:00, Duration: 30 day, Stop date: 05/02/13 20:21:00 Phenergan 12.5 mg, 0.5 mL, IVPB No Longer Mitch [facility] Route: IVPB, Active 2012 Medical Drug form: INJ, Center ONCE, Dosing Weight 90, kg, Start date: 04/02/13 20:11:00, Stop date: 04/02/13 20:11:00 morphine 4 mg, 1 mL, IVP No Longer Mitch [facility] Sulfate Route: IVP, Drug Active 2012 Medical form: INJ, ONCE, Center Dosing Weight 90, kg, Start date: 04/02/13 20:10:00, Stop date: 04/02/13 20:10:00 Phenergan 12.5 mg, 0.5 mL, IVPB No Longer Zhang [facility] Route: IVPB, Active 2012 Medical Drug form: INJ, Center ONCE, Dosing Weight 90, kg, Priority: STAT, Start date: 04/02/13 17:11:00, Stop date: 04/02/13 17:11:00 Zofran 4 mg, 2 mL, IVP No Longer Zhang [facility] Route: IVP, Drug Active 2012 Medical form: INJ, ONCE, Center Dosing Weight 90, kg, Priority: STAT, Start date: 04/02/13 16:52:00, Stop date: 04/02/13 16:52:00 nitroglycerin 0.4 mg, 1 tab, SL No Longer Kiki [facility] Route: SL, Drug Active 2012 Medical form: TAB, Center Q5Min, Dosing Weight 90, kg, PRN Chest Pain, Priority: STAT, Start date: 04/02/13 16:31:00, Duration: 3 doses or times, Stop date: Limited # of times aspirin 325 mg, 1 tab, PO No Longer K[facility] Route: PO, Drug Active 2012 Medical form: ECTAB, Center ONCE, Dosing Weight 90, kg, Priority: STAT, Start date: 04/02/13 16:31:00, Stop date: 04/02/13 16:31:00 morphine 4 mg, 1 mL, IVP No Longer K[facility] Sulfate Route: IVP, Drug Active 2012 Medical form: INJ, ONCE, Center Dosing Weight 90, kg, Start date: 04/02/13 16:30:00, Stop date: 04/02/13 16:30:00 erythromycin 1 cap, PO, Q12H, PO Active [place] 250 mg oral 14 cap, 2012 Medical enteric coated Substitution Center tablet Allowed, ECTAB GI cocktail 30 ml, Route: PO No Longer Osu[facility]wu [facility] PO, Drug Form: Active 2012 [...] gm, 50 mL, IVPB No Longer Osu[place]wu [facility] sulfate Route: IVPB, Active 2012 Medical Drug form: INJ, Center Q2H, Dosing Weight 90, kg, Total Dose=4 gm, Start date: 03/08/13 12:00:00, Duration: 2 doses or times, Stop date: 03/08/13 14:00:00, For Mg=1.5 - 1.7 mg/dLFor Mg=1.5 - 1.7 mg/dL insulin aspart 5 unit, 0.05 mL, SUB-Q No Longer [place] [facility] Route: SUB-Q, Active 2012 Medical Drug form: [facility] ONCE, Dosing Weight 90, kg, Start date: 03/08/13 3:17:00, Stop date: 03/08/13 3:17:00 Zocor 40 mg, 1 tab, PO No Longer [place]on [facility] Route: PO, Drug Active 2012 Medical form: TAB, Center Bedtime, Dosing Weight 90, kg, Start date: 03/07/13 21:00:00, Duration: 30 day, Stop date: 04/05/13 21:00:00 Cymbalta 120 mg, 2 cap, PO No Longer [place]on [facility] Route: PO, Drug 2012 Medical [...] unit, 0.1 mL, SUB-Q No Longer Talon [facility] Route: SUB-Q, Active 2012 Medical Drug form: SOLN, Center ONCE, Dosing Weight 90, kg, Start date: 03/07/13 19:16:00, Stop date: 03/07/13 19:16:00 Lyrica 150 mg, 2 cap, PO No Longer [place]on [facility] Route: PO, Drug Active 2012 Medical form: CAP, BID, Center Dosing Weight 90, kg, Start date: 03/07/13 17:00:00, Duration: 30 day, Stop date: 04/06/13 9:00:00 Protonix 40 mg, 1 tab, PO No Longer [place] [facility] Route: PO, Drug Active 2012 Medical form: ECTAB, Center BID, Dosing Weight 90, kg, Start date: 03/07/13 17:00:00, Duration: 30 day, Stop date: 04/06/13 9:00:00 meloxicam 7.5 mg, 1 tab, PO No Longer [place] [facility] Route: PO, Drug Active 2012 Medical form: TAB, Center BID-Meals, Dosing Weight 90, kg, Start date: 03/07/13 17:00:00, Duration: 30 day, Stop date: 04/06/13 8:00:00 Flexeril 10 mg, 1 tab, PO No Longer [place] [facility] Route: PO, Drug Active 2012 Medical form: TAB, BID, Center Dosing Weight 90, kg, Start date: 03/07/13 17:00:00, Duration: 30 day, Stop date: 04/06/13 9:00:00 NovoLog FlexPen 6 unit, 0.06 mL, SUB-Q No Longer Osu[place]wu [facility] Route: SUB-Q, Active 2012 Medical Drug form: SOLN, Center TID-Before Meals, Start date: 03/07/13 16:30:00, Duration: 30 day, Stop date: 04/06/13 11:30:00 Humalog 6 unit, Route: SUB-Q No Longer Talon [facility] SUB-Q, Active 2012 Medical TID-Before Center Meals, Dosing Weight 90, kg, Start date: 03/07/13 16:30:00, Duration: 30 day, Stop date: 04/06/13 11:30:00 heparin 5,000 unit, 1 SUB-Q No Longer [place]on [facility] mL, Route: Active 2012 Medical SUB-Q, Drug Center form: INJ, Q8H, Dosing Weight 90, kg, Start date: 03/07/13 16:00:00, Duration: 30 day, Stop date: 04/06/13 8:00:00 Effient 10 mg, 1 tab, PO No Longer Talon [facility] Route: PO, Drug Active 2012 Medical form: TAB, Center Daily, Dosing Weight 90, kg, Start date: 03/07/13 13:30:00, Duration: 30 day, Stop date: 04/06/13 9:00:00 magnesium oxide 400 mg, 1 tab, PO No Longer [place]on [facility] Route: PO, Drug Active 2012 Medical form: TAB, Center Daily, Dosing Weight 90, kg, Start date: 03/07/13 13:30:00, Duration: 30 day, Stop date: 04/06/13 9:00:00 lisinopril 20 mg, 1 tab, PO No Longer [place]on [facility] Route: PO, Drug Active 2012 Medical form: TAB, Center Daily, Dosing Weight 90, kg, Start date: 03/07/13 13:30:00, Duration: 30 day, Stop date: 04/06/13 9:00:00 Reglan 5 mg, 1 tab, PO No Longer [place]on [facility] Route: PO, Drug Active 2012 Medical form: TAB, TID, Center Dosing Weight 90, kg, Start date: 03/07/13 13:00:00, Duration: 30 day, Stop date: 04/06/13 9:00:00 ferrous sulfate 325 mg, 1 tab, PO No Longer Talon [facility] Route: PO, Drug Active 2012 Medical form: ECTAB, Center TID, Dosing Weight 90, kg, Start date: 03/07/13 13:00:00, Duration: 30 day, Stop date: 04/06/13 9:00:00 clonazepam 0.5 mg, 1 tab, PO No Longer Talon [facility] Route: PO, Drug Active 2012 Medical form: TAB, TID, Center Dosing Weight 90, kg, Start date: 03/07/13 13:00:00, Duration: 30 day, Stop date: 04/06/13 9:00:00 NovoLog 6 unit, SUB-Q, SUB-Q No Longer [place] TID-Before Active 2012 Medical Meals, Center Substitution Allowed Levemir 12 unit, SUB-Q, SUB-Q Active [place] BID, 2012 Medical Substitution Center Allowed NS 1,000 mL 1,000 mL, Rate: IV No Longer [place]on Fe[place] 125 ml/hr, Active 2012 Medical Infuse over: 8 Center hr, Route: IV, Dosing Weight 90 kg, Total Volume: 1,000, Start date: 03/07/13 12:19:00, Duration: 30 day, Stop date: 04/06/13 12:18:00 insulin aspart 2 unit, 0.02 mL, SUB-Q No Longer [place]on [place] Route: SUB-Q, Active 2012 Medical Drug form: SOLN, Center TID-Before Meals, Dosing Weight 90, kg, PRN Blood Glucose Results, Start date: 03/07/13 11:55:00, Duration: 30 day, Stop date: 04/06/13 11:54:00 glucagon 1 mg, Route: IM, IM No Longer [place] Drug form: Active 2012 Medical PDR/INJ, PRN, Center Dosing Weight 90, kg, PRN Blood Glucose Results, Start date: 03/07/13 11:55:00, Duration: 30 day, Stop date: 04/06/13 11:54:00 Dextrose 50% 12.5 gm, 25 mL, IVP No Longer [place] Syringe Route: IVP, Drug Active 2012 Medical Form: INJ, Center Dosing Weight 90, kg, PRN, PRN Blood Glucose Results, Start date: 03/07/13 11:55:00, Duration: 30 day, Stop date: 04/06/13 11:54:00 Phenergan 12.5 mg, 0.5 mL, IVPB No Longer [place] [facility] Route: IVPB, Active 2012 Medical Drug form: INJ, Center Q4H, Dosing Weight 90, kg, PRN Nausea & Vomiting, Start date: 03/07/13 11:53:00, Duration: 30 day, Stop date: 04/06/13 11:52:00 albuterol 2.49 mg, 3 mL, NEB No Longer [place]on [facility] 0.083% Route: NEB, Drug Active 2012 Medical inhalation form: SOLN, Center solution RQ4H, Dosing Weight 90, kg, PRN as needed for wheezing, Start date: 03/07/13 11:53:00, Duration: 30 day, Stop date: 04/06/13 11:52:00 Zofran 4 mg, 2 mL, IVP No Longer [place] [facility] Route: IVP, Drug Active 2012 Medical form: INJ, Q4H, Center Dosing Weight 90, kg, PRN Nausea, Start date: 03/07/13 11:53:00, Duration: 30 day, Stop date: 04/06/13 11:52:00 acetaminophen-h 1 tab, Route: PO No Longer [place]on [facility] ydrocodone 325 PO, Drug Form: Active 2012 Medical mg-10 mg oral TAB, Dosing Center tablet Weight 90, kg, Q4H, PRN Pain Score 4-6, Start date: 03/07/13 11:51:00, Duration: 30 day, Stop date: 04/06/13 11:50:00 acetaminophen-h 1 tab, Route: PO No Longer [place]on [facility] ydrocodone 325 PO, Drug Form: Active 2012 Medical mg-5 mg oral TAB, Dosing Center tablet Weight 90, kg, Q4H, PRN Pain Score 1-3, Start date: 03/07/13 11:51:00, Duration: 30 day, Stop date: 04/06/13 11:50:00 acetaminophen 650 mg, 2 tab, PO No Longer [place]on [facility] Route: PO, Drug Active 2012 Medical form: TAB, Q4H, Center Dosing Weight 90, kg, PRN Pain 1-3/Temp > 100.4 F, Start date: 03/07/13 11:51:00, Duration: 30 day, Stop date: 04/06/13 11:50:00 morphine 2 mg, 1 mL, IVP No Longer Talon [facility] Sulfate Route: IVP, Drug Active 2012 Medical form: INJ, Q4H, Center Dosing Weight 90, kg, PRN Pain Score 7-10, Start date: 03/07/13 11:51:00, Duration: 30 day, Stop date: 04/06/13 11:50:00 docusate 100 mg, 1 cap, PO No Longer Talon [facility] Route: PO, Drug Active 2012 Medical form: CAP, BID, Center Dosing Weight 90, kg, PRN Constipation, Start date: 03/07/13 11:51:00, Duration: 30 day, Stop date: 04/06/13 11:50:00 Levemir 12 unit, 0.12 SUB-Q No Longer [place] [facility] mL, Route: Active 2012 Medical SUB-Q, Drug Center form: INJ, ONCE, Dosing Weight 90, kg, Start date: 03/07/13 6:10:00, Stop date: 03/07/13 6:10:00 lidocaine-epi 1 ml, Route: SUB-Q No Longer Kiki [facility] [id number] SUB-Q, Drug Active 2012 Medical Form: SOLN, Center Dosing Weight 90, kg, ONCE, STAT, Start date: 03/07/13 5:18:00, Stop date: 03/07/13 5:18:00 Insulin regular 99 mL, Rate: IVPB No Longer Kiki [facility] 100 unit + Start Insulin [...] gm, 25 mL, IVP No Longer Kiki [facility] Syringe Route: IVP, Drug Active 2012 Medical Form: INJ, Center Dosing Weight 90, kg, PRN, PRN Blood Glucose Results, Start date: 03/07/13 5:13:00, Duration: 30 day, Stop date: 04/06/13 5:12:00 NS (Bolus) IV 1,000 mL, Rate: IV No Longer Kiki [facility] 1,000 mL 1,000 ml/hr, Active [...] unit, 0.1 mL, SUB-Q No Longer Kiki [facility] Route: SUB-Q, 2012 Medical Drug form: SOLN, Center ONCE, Dosing Weight 90, kg, Priority: STAT, Start date: 03/07/13 2:16:00, Stop date: 03/07/13 2:16:00 Reglan 10 mg, 2 mL, IVP No Longer Kiki [facility] Route: IVP, Drug Active 2012 Medical form: INJ, ONCE, Center Dosing Weight 90, kg, Priority: STAT, Start date: 03/07/13 2:16:00, Stop date: 03/07/13 2:16:00 NS 1,000 mL 1,000 mL, Rate: IV No Longer [place]on [place] 150 ml/hr, 2012 Medical Infuse over: 6.7 Center hr, Route: IV, Dosing Weight 90 kg, Total Volume: 1,000, Start date: 03/07/13 2:15:00, Duration: 30 day, Stop date: 04/06/13 2:14:00 droperidol 1.25 mg, Route: IVP No Longer Kiki [facility] IVP, ONCE, 2012 Medical Dosing Weight Center 90, kg, PRN Nausea & Vomiting, Start date: 03/07/13 0:48:00 D5W 1/2NS 1,000 1,000 mL, Rate: IV No Longer [place] mL 125 ml/hr, Active 2012 Medical Infuse over: 8 Center hr, Route: IV, Dosing Weight 90 kg, Total Volume: 1,000, Start date: 03/07/13 0:43:00, Duration: 30 day, Stop date: 04/06/13 0:42:00 Insulin regular 4 unit, 0.04 mL, SUB-Q No Longer Kiki [facility] Route: SUB-Q, Active 2012 Medical Drug form: SOLN, Center Sliding Scale, Dosing Weight 90, kg, PRN Blood Glucose Results, Start date: 03/07/13 0:01:00, Duration: 30 day, Stop date: 04/06/13 0:00:00 glucagon 1 mg, Route: IM, IM No Longer Kiki [facility] Drug form: Active 2012 Medical PDR/INJ, PRN, Center Dosing Weight 90, kg, PRN Blood Glucose Results, Start date: 03/07/13 0:01:00, Duration: 30 day, Stop date: 04/06/13 0:00:00 Dextrose 50% 25 gm, 50 mL, IVP No Longer Kiki [facility] Syringe Route: IVP, Drug Active 2012 Medical Form: INJ, Center Dosing Weight 90, kg, PRN, PRN Blood Glucose Results, Start date: 03/07/13 0:01:00, Duration: 30 day, Stop date: 04/06/13 0:00:00 NS 1,000 mL 1,000 mL, Rate: IV No Longer Kiki [facility] 125 ml/hr, Active 2012 Medical Infuse over: 8 Center hr, Route: IV, Dosing Weight 90 kg, Total Volume: 1,000, Start date: 03/06/13 23:21:00, Duration: 30 day, Stop date: 04/05/13 23:20:00 NS (Bolus) IV 1,000 mL, Rate: IV No Longer Kiki [facility] 1,000 mL 1,000 ml/hr, Active 2012 Medical Infuse over: 1 Center hr, Route: IV, Dosing Weight 90 kg, Total Volume: 1,000, Priority: STAT, Start date: 03/06/13 23:21:00, Duration: 1 doses or times, Stop date: 03/07/13 0:20:00, Bolus DoseBolus Dose [place] 5/325 1 tab, PO, Q6H, PO No Longer [place] oral tablet PRN, 30 tab, Active 2012 Medical Substitution Center Allowed, Maintenance ferrous sulfate 325 mg, 1 tab, PO Active [place]on [facility] 325 mg oral PO, TID, 30 tab, 2012 Medical enteric coated Substitution Center tablet Allowed, ECTAB acetaminophen-h 1 tab, PO, Q4H, PO Active [facility] ydrocodone 500 PRN, for pain, 2012 Medical mg-7.5 mg oral Substitution Center tablet Allowed, Maintenance, TAB meloxicam 7.5 7.5 mg, 1 tab, PO Active [place] 03/07[facility] mg oral tablet PO, BID, WITH 2012 Medical FOOD, 30 tab, [place] Substitution Allowed, TABWITH FOOD Zocor 40 mg 40 mg, 1 tab, PO Active [place] [facility] oral tablet PO, Bedtime, 30 2012 Medical tab, Center Substitution Allowed, Maintenance ProAir HFA 90 Substitution Active [facility] mcg/inh Allowed, 2012 Medical inhalation Maintenance Center aerosol with adapter Flexeril 10 mg 10 mg, 1 tab, PO Active [place] [facility] oral tablet PO, TID, PRN, 30 2012 Medical tab, for spasm, Center Substitution Allowed, TAB Protonix 40 mg 40 mg, 1 tab, PO Active [place] [facility] oral enteric PO, BID, 30 tab, 2012 Medical coated tablet Substitution Center Allowed, ECTAB Lyrica 150 mg 150 mg, 1 cap, PO Active [place] [facility] oral capsule PO, BID, 90 cap, 2012 [facility] Substitution [place] Allowed, CAP Flagyl 500 mg 500 mg, 1 tab, PO No Longer [facility] oral tablet PO, Q6H, 30 tab, Active 2012 [facility] Substitution [place] Allowed metoclopramide 10 mg, 1 tab, PO Active [place] [facility] 10 mg oral PO, TID, 56 tab, 2012 Medical tablet Substitution Center Allowed, TAB NS (Bolus) IV 1,000 mL, Rate: IV No Longer Kiki [facility] 1,000 mL 1,000 ml/hr, Active 2012 Medical Infuse over: 1 Center hr, Route: IV, Dosing Weight 90 kg, Total Volume: 1,000, Priority: STAT, Start date: 03/06/13 21:27:00, Duration: 1 doses or times, Stop date: 03/06/13 22:26:00, Bolus DoseBolus Dose morphine 4 mg, 1 mL, IVP No Longer Kiki [facility] Sulfate Route: IVP, Drug Active 2012 Medical form: INJ, ONCE, Center Dosing Weight 90, kg, Start date: 03/06/13 21:27:00, Stop date: 03/06/13 21:27:00 Phenergan 12.5 mg, 0.5 mL, IVPB No Longer Kiki [facility] Route: IVPB, Active 2012 Medical Drug form: INJ, Center ONCE, Dosing Weight 90, kg, Priority: STAT, Start date: 03/06/13 21:26:00, Stop date: 03/06/13 21:26:00 ergocalciferol 50,000 IntlUnit, PO No Longer [place] [facility] 1 cap, Route: Active 2012 Medical PO, Drug form: Center CAP, qWeek, Dosing Weight 100, kg, Start date: 12/07/12 9:00:00, Duration: 30 day, Stop date: 01/04/13 9:00:00 erythromycin 250 mg, 1 tab, PO Active [facility] stearate 250 mg PO, Q6H, 56 tab, 2012 Medical oral tablet Substitution Center Allowed, TAB Protonix 40 mg 40 mg, 1 tab, PO Active [facility] oral enteric PO, Daily, 30 2012 Medical coated tablet tab, Center Substitution Allowed, ECTAB pravastatin 80 80 mg, 1 tab, PO Active [facility] mg oral tablet PO, Daily, 30 2012 Medical tab, Center Substitution Allowed, TAB insulin detemir 14 unit, 0.14 SUB-Q Active [facility] 100 units/mL mL, SUB-Q, 2012 Medical subcutaneous Bedtime, 100 mL, [place] solution Substitution Allowed, INJ insulin detemir 16 unit, 0.16 SUB-Q Active [facility] 100 units/mL mL, SUB-Q, 2012 Medical subcutaneous Daily, 100 mL, [place] solution Substitution Allowed, INJ Protonix 40 mg, Route: IVP No Longer [place] [facility] IVP, Drug form: Active 2012 Medical INJ, Daily, Center Dosing Weight 100, kg, Priority: NOW, Start date: 12/06/12 16:52:00, Duration: 30 day, Stop date: 01/05/13 9:00:00 insulin detemir 16 unit, 0.16 SUB-Q No Longer [place] [facility] mL, Route: Active 2012 Medical SUB-Q, Drug Center form: INJ, Daily, Dosing Weight 100, kg, Start date: 12/06/12 9:00:00, Stop date: 01/04/13 9:00:00 [place] 7.5/325 1 tab, Route: PO No Longer [place] [facility] oral tablet PO, Drug Form: Active 2012 Medical TAB, Dosing Center Weight 100, kg, ONCE, Start date: 12/06/12 0:19:00, Stop date: 12/06/12 0:19:00 Pravachol 80 mg, 4 tab, PO No Longer [place] [facility] Route: PO, Drug Active 2012 Medical form: TAB, Center Bedtime, Start date: 12/05/12 21:00:00, Duration: 30 day, Stop date: 01/03/13 21:00:00 insulin detemir 14 unit, 0.14 SUB-Q No Longer [place] [facility] mL, Route: Active 2012 Medical SUB-Q, Drug Center form: INJ, Bedtime, Dosing Weight 100, kg, Start date: 12/05/12 21:00:00, Stop date: 01/03/13 21:00:00 morphine 4 mg, 1 mL, IVP No Longer [place] [facility] Sulfate Route: IVP, Drug Active 2012 Medical form: INJ, ONCE, Center Dosing Weight 100, kg, Start date: 12/05/12 16:51:00, Stop date: 12/05/12 16:51:00 erythromycin + 250 mg, Route: IVPB No Longer [place] [facility] Sodium Chloride IVPB, Q8H, Active 2012 Medical 0.9% IV 100 mL Dosing Weight Center 100, kg, Start date: 12/05/12 16:00:00, Duration: 30 day, Stop date: 01/04/13 8:00:00 potassium 20 mEq, 100 mL, IVPB No Longer [place] [facility] chloride Route: IVPB, Active 2012 [...] 12/04/12 8:20:00 Phenergan 25 mg, 1 supp, MI No Longer [facility] Fe[facility] Route: MI, Drug Active 2012 Medical form: SUPP, Q4H, Center Dosing Weight 100, kg, PRN Nausea & Vomiting, Start date: 12/04/12 7:58:00, Duration: 30 day, Stop date: 01/03/13 7:57:00 Dextrose 50% 25 gm, 50 mL, IVP No Longer [place] [facility] Syringe Route: IVP, Drug Active 2012 Medical Form: INJ, Center Dosing Weight 100, kg, PRN, PRN Blood Glucose Results, Start date: 12/04/12 7:48:00, Duration: 30 day, Stop date: 01/03/13 7:47:00 glucagon 1 mg, Route: IM, IM No Longer [place] Drug form: Active 2012 Medical PDR/INJ, PRN, Center Dosing Weight 100, kg, PRN Blood Glucose Results, Start date: 12/04/12 7:48:00, Duration: 30 day, Stop date: 01/03/13 7:47:00 insulin aspart 4 unit, 0.04 mL, SUB-Q No Longer [place] Route: SUB-Q, Active 2012 Medical Drug form: SOLN, Center Bedtime, Dosing Weight 100, kg, PRN Blood Glucose Results, Start date: 12/04/12 7:48:00, Duration: 30 day, Stop date: 01/03/13 7:47:00 Protonix 40 mg, Route: IV No Longer [place] IV, Drug form: Active 2012 Medical INJ, ONCE, Center Dosing Weight 100, kg, Start date: 12/04/12 3:12:00, Stop date: 12/04/12 3:12:00 potassium 20 mEq, 100 mL, IVPB No Longer [place] [facility] chloride Route: IVPB, Active 2012 Medical Q2H, Start date: [place] 12/03/12 8:00:00, Stop date: 12/03/12 11:00:00 potassium 40 mEq, Route: IV No Longer [place] [facility] chloride IV, ONCE, Dosing Active 2012 Medical Weight 100, kg, Center Start date: 12/03/12 7:02:00, Stop date: 12/03/12 7:02:00 NS 1,000 mL 1,000 mL, Rate: IV No Longer [place] [facility] 125 ml/hr, Active 2012 Medical Infuse over: 8 Center hr, Route: IV, kg, Total Volume: 1,000, Start date: 12/02/12 16:54:00, Duration: 30 day, Stop date: 01/01/13 16:53:00 NS (Bolus) IV 1,000 mL, Rate: IV No Longer [place] [facility] 1,000 mL 1,000 ml/hr, Active 2012 Medical Infuse over: 1 Center hr, Route: IV, kg, Total Volume: 1,000, Priority: STAT, Start date: 12/02/12 13:12:00, Duration: 1 doses or times, Stop date: 12/02/12 14:11:00, Bolus DoseBolus Dose NS (Bolus) IV 1,000 mL, Rate: IV No Longer [place] [facility] 1,000 mL 1,000 ml/hr, Active 2012 Medical Infuse over: 1 Center hr, Route: IV, kg, Total Volume: 1,000, Priority: STAT, Start date: 12/02/12 12:10:00, Duration: 1 doses or times, Stop date: 12/02/12 13:09:00, Bolus DoseBolus Dose insulin detemir 20 unit, 0.2 mL, SUB-Q No Longer [place] [facility] Route: SUB-Q, Active 2012 Medical Drug form: INJ, Center BID, Dosing Weight 100, kg, Start date: 12/02/12 9:00:00, Duration: 30 day, Stop date: 12/31/12 21:00:00 calcium 1,000 mg, 10 mL, IVPB No Longer [place] [facility] chloride + Route: IVPB, Active 2012 Medical Sodium Chloride ONCE, Start Center 0.9% IV 100 mL date: 12/02/12 5:08:00, Stop date: 12/02/12 5:08:00 ceftriaxone 1 gm, Route: IVPB No Longer [place] [facility] IVPB, Drug form: Active 2012 Medical PDR/INJ, Center [id number], Dosing Weight 100, kg, Start date: 12/02/12 5:00:00, Duration: 30 day, Stop date: 12/31/12 5:00:00 calcium 1,000 mg, Route: IVPB No Longer [place] [facility] gluconate IVPB, Drug form: Active 2012 Medical INJ, ONCE, Center Dosing Weight 100, kg, Start date: 12/02/12 5:00:00, Stop date: 12/02/12 5:00:00 Dextrose 50% 25 mL, Route: IVP No Longer [place] [facility] Syringe IVP, Dosing Active 2012 Medical Weight 100, kg, Center PRN, PRN Blood Glucose Results, Start date: 12/02/12 4:51:00, Duration: 30 day, Stop date: 01/01/13 4:50:00 Insulin regular 100 mL, Rate: IVPB No Longer [place] [facility] 100 unit + Start Insulin [...] 4 mg, Route: IVP No Longer [place] [facility] IVP, Drug form: Active 2012 Medical INJ, ONCE, Center Dosing Weight 100, kg, Priority: STAT, Start date: 12/02/12 4:47:00, Stop date: 12/02/12 4:47:00 normal saline 1,000 mL, Rate: IV No Longer [place] 0.9% IV 1,000 1,000 ml/hr, Active 2012 Medical mL Infuse over: 1 Center hr, Route: IV, kg, Total Volume: 1,000, Start date: 12/02/12 3:19:00, Duration: 1 doses or times, Stop date: 12/02/12 4:18:00 Insulin regular 6 unit, 0.06 mL, IV No Longer [place] [facility] Route: IV, Drug Active 2012 Medical form: SOLN, Center ONCE, Dosing Weight 100, kg, Priority: STAT, Start date: 12/02/12 3:19:00, Stop date: 12/02/12 3:19:00 insulin aspart 3 unit, 0.03 mL, SUB-Q No Longer [place] [facility] Route: SUB-Q, Active 2012 Medical Drug form: SOLN, Center Bedtime, Dosing Weight 100, kg, PRN Blood Glucose Results, Start date: 12/01/12 13:23:00, Duration: 30 day, Stop date: 12/31/12 13:22:00 NS 1,000 mL 1,000 mL, Rate: IV No Longer [place] 150 ml/hr, Active 2012 Medical Infuse over: 6.7 Center hr, Route: IV, kg, Total Volume: 1,000, Priority: NOW, Start date: 12/01/12 13:10:00, Duration: 1 doses or times, Stop date: 12/01/12 19:51:00 Insulin regular 2 unit, 0.02 mL, SUB-Q No Longer [place] [facility] Route: SUB-Q, Active 2012 Medical Drug form: SOLN, Center Bedtime, Dosing Weight 100, kg, PRN Blood Glucose Results, Start date: 12/01/12 13:08:00, Duration: 30 day, Stop date: 12/31/12 13:07:00 insulin aspart 4 unit, 0.04 mL, SUB-Q No Longer [place] [facility] Route: SUB-Q, Active 2012 Medical Drug form: SOLN, Center TID-Before Meals, Dosing Weight 100, kg, PRN Blood Glucose Results, Start date: 12/01/12 13:08:00, Duration: 30 day, Stop date: 12/31/12 13:07:00 Dextrose 50% 25 gm, 50 mL, IVP No Longer [place] [facility] Syringe Route: IVP, Drug Active 2012 Medical Form: INJ, Center Dosing Weight 100, kg, PRN, PRN Blood Glucose Results, Start date: 12/01/12 13:08:00, Duration: 30 day, Stop date: 12/31/12 13:07:00 glucagon 1 mg, Route: IM, IM No Longer [place] [facility] Drug form: Active 2012 Medical [...] unit, 0.01 mL, SUB-Q No Longer [facility] 11[facility]30[facility] Route: SUB-Q, Active 2012 Medical [...] mg, 2 mL, IV No Longer [place] [facility] Route: IV, Drug Active 2012 Medical form: INJ, Q6H, Center Dosing Weight 100, kg, PRN Nausea, Start date: 11/30/12 13:32:00, Duration: 30 day, Stop date: 12/30/12 13:31:00 insulin aspart 10 unit, 0.1 mL, SUB-Q No Longer [place] [facility] [facility] Route: SUB-Q, Active 2012 Medical Drug form: SOLN, Center TID-Before Meals, Dosing Weight 100, kg, PRN Blood Glucose Results, Start date: 11/30/12 13:26:00, Duration: 30 day, Stop date: 12/30/12 13:25:00 Zofran 4 mg, 2 mL, IV No Longer [facility] Route: IV, Drug Active 2012 Medical form: INJ, Q8H, Center Dosing Weight 100, kg, PRN Nausea, Start date: 11/30/12 11:58:00, Duration: 30 day, Stop date: 12/30/12 11:57:00 Zofran 4 mg, 2 mL, IVP No Longer Randy [facility] Route: IVP, Drug Active 2012 Medical form: INJ, ONCE, Center Dosing Weight 100, kg, Priority: NOW, Start date: 11/30/12 11:57:00, Stop date: 11/30/12 11:57:00 potassium 2 pkt, Route: PO No Longer [place] [place] phosphate-sodiu PO, Drug Form: Active 2012 Medical m phosphate 250 PDR/REC, ONCE, Center mg-278 mg-164 Start date: mg oral powder 11/30/12 10:00:00, Stop date: 11/30/12 10:00:00 Dextrose 5% 1,000 mL, Rate: IV No Longer Randy [place] with 0.45% NaCl 150 ml/hr, Active 2012 Medical IV 1,000 mL Infuse over: 6.7 Center hr, Route: IV, kg, Total Volume: 1,000, Start date: 11/30/12 9:12:00, Duration: 30 day, Stop date: 12/30/12 9:11:00 insulin detemir 16 unit, 0.16 SUB-Q No Longer [facility] mL, Route: Active 2012 Medical SUB-Q, Drug Center form: INJ, Q12H, Dosing Weight 100, kg, Start date: 11/30/12 9:00:00, Duration: 30 day, Stop date: 12/29/12 21:00:00 heparin 5,000 unit, 1 SUB-Q No Longer [facility] mL, Route: Active 2012 Medical SUB-Q, Drug Center form: INJ, Q8H, Dosing Weight 100, kg, Start date: 11/30/12 8:30:00, Duration: 30 day, Stop date: 12/30/12 8:00:00 magnesium 2 gm, Route: IVPB No Longer [facility] sulfate IVPB, Drug form: Active 2012 Medical INJ, ONCE, Center Dosing Weight 100, kg, Total dose=2 gm, Start date: 11/30/12 8:05:00, Duration: 1 doses or times, Stop date: 11/30/12 8:05:00 potassium 30 mmol, Route: IVPB No Longer [facility] phosphate IVPB, ONCE, Active 2012 Medical Dosing Weight Center 100, kg, Start date: 11/30/12 8:05:00, Duration: 1 doses or times, Stop date: 11/30/12 8:05:00, For PO4=1.5 - 1.9 mg/dL; Administer when level=3 - 3.4 mEq/L in place of KClFor PO4=1.5 - 1.9 mg/dL; Administer when level=3 - 3.4 mEq/L in place of KCl heparin 5000 5,000 unit, SUB-Q No Longer [facility] units/mL Route: SUB-Q, Active 2012 Medical injectable Drug form: INJ, Center solution Q8H, Dosing Weight 100, kg, Start date: 11/30/12 8:00:00, Duration: 30 day, Stop date: 12/30/12 0:00:00 insulin aspart 10 unit, 0.1 mL, SUB-Q No Longer [facility] Route: SUB-Q, Active 2012 Medical Drug form: SOLN, Center TID-Before Meals, Dosing Weight 100, kg, PRN Blood Glucose Results, Start date: 11/30/12 7:57:00, Duration: 30 day, Stop date: 12/30/12 7:56:00 glucagon 1 mg, Route: IM, IM No Longer [facility] Drug form: Active 2012 Medical PDR/INJ, PRN, Center Dosing Weight 100, kg, PRN Blood Glucose Results, Start date: 11/30/12 7:57:00, Duration: 30 day, Stop date: 12/30/12 7:56:00 Dextrose 50% 25 gm, 50 mL, IVP No Longer Lozada [facility] Syringe Route: IVP, Drug Active [...] mg, 0.5 mL, IV No Longer [facility]ando [facility] Route: IV, Drug Active 2012 Medical form: INJ, Q4H, Center Dosing Weight 100, kg, PRN Hypertension, Start date: 11/29/12 22:56:00, Duration: 30 day, Stop date: 12/29/12 22:55:00 simvastatin 40 mg, 1 tab, PO No Longer [place] [facility] Route: PO, Drug Active 2012 Medical form: TAB, Center Bedtime, Dosing Weight 101.364, kg, Start date: 11/29/12 21:00:00, Duration: 30 day, Stop date: 12/28/12 21:00:00 Cymbalta 60 mg, 1 cap, PO No Longer Aaron [facility] Route: PO, Drug Active 2012 Medical form: DRC, Center Bedtime, Dosing Weight 101.364, kg, Start date: 11/29/12 21:00:00, Stop date: 12/28/12 21:00:00 ceftriaxone 1 gm, Route: IVPB No Longer [facility] IVPB, Drug form: Active 2012 Medical PDR/INJ, Center [id number], Dosing Weight 100, kg, Start date: 11/29/12 20:00:00, Duration: 30 day, Stop date: 12/28/12 20:00:00 hydrALAZINE 5 mg, 0.25 mL, IV No Longer [facility] Route: IV, Drug Active 2012 Medical form: INJ, Q4H, Center Dosing Weight 100, kg, PRN Hypertension, Start date: 11/29/12 19:42:00, Duration: 30 day, Stop date: 12/29/12 19:41:00 Phenergan 12.5 mg, 0.5 mL, IVPB No Longer [facility] Route: IVPB, Active 2012 Medical Drug form: INJ, Center Q4H, Dosing Weight 100, kg, PRN Nausea & Vomiting, Start date: 11/29/12 17:56:00, Duration: 30 day, Stop date: 12/29/12 17:55:00 clonazepam 0.5 mg, 1 tab, PO No Longer Hendrix [facility] Route: PO, Drug Active 2012 [...] 1,000 mL, Rate: IV No Longer Simeon [facility] 0.9% IV 1,000 200 ml/hr, Active 2012 Medical mL Infuse over: 5 Center hr, Route: IV, kg, Total Volume: 1,000, Start date: 11/29/12 14:41:00, Stop date: 12/29/12 14:45:00 Insulin regular 99 mL, Rate: IV No Longer Nicho [facility] 100 unit + Start Insulin [...] 90 mg, 1 tab, PO No Longer [place] [facility] Route: PO, Drug Active 2012 Medical form: ERTAB, Center Daily, Dosing Weight 101.364, kg, Start date: 11/29/12 9:00:00, Duration: 30 day, Stop date: 12/28/12 9:00:00 clonazepam 0.5 mg, 1 tab, PO No Longer [facility] [place] Route: PO, Drug Active 2012 Medical form: TAB, TID, Center Dosing Weight 101.364, kg, Start date: 11/29/12 9:00:00, Duration: 30 day, Stop date: 12/28/12 17:00:00 lisinopril 20 mg, 1 tab, PO No Longer [place] [facility] Route: PO, Drug Active 2012 Medical form: TAB, Q12H, Center Dosing Weight 101.364, kg, Start date: 11/29/12 9:00:00, Duration: 30 day, Stop date: 12/28/12 21:00:00 magnesium oxide 400 mg, 1 tab, PO No Longer Aaron [facility] Route: PO, Drug Active 2012 Medical form: TAB, Center Daily, Dosing Weight 101.364, kg, Start date: 11/29/12 9:00:00, Duration: 30 day, Stop date: 12/28/12 9:00:00 Effient 10 mg, 1 tab, PO No Longer Aaron [facility] Route: PO, Drug Active 2012 Medical form: TAB, Center Daily, Dosing Weight 101.364, kg, Start date: 11/29/12 9:00:00, Duration: 30 day, Stop date: 12/28/12 9:00:00 Levemir 8 unit, 0.08 mL, SUB-Q No Longer [place] [facility] Route: SUB-Q, Active 2012 Medical [...] 81 mg, 1 tab, PO No Longer [place] [facility] Route: PO, Drug Active 2012 Medical [...] mg, 0.4 mL, SUB-Q No Longer Hendrix [facility] Route: SUB-Q, Active 2012 Medical Drug form: INJ, Center [id number], Dosing Weight 101.364, kg, Start date: 11/29/12 4:00:00, Duration: 30 day, Stop date: 12/28/12 4:00:00 Phenergan 12.5 mg, 0.25 IVPB No Longer Aaron [facility] mL, Route: IVPB, Active 2012 Medical Drug form: INJ, Center Q4H, Dosing Weight 101.364, kg, Start date: 11/29/12 4:00:00, Duration: 30 day, Stop date: 12/29/12 0:00:00 tramadol 50 mg 50 mg, 1 tab, PO No Longer Aaron [facility] oral tablet Route: PO, Drug Active 2012 Medical form: TAB, Q4H, Center Dosing Weight 101.364, kg, PRN as needed for pain, Start date: 11/29/12 3:46:00, Duration: 30 day, Stop date: 12/29/12 3:45:00 insulin aspart 3 unit, 0.03 mL, SUB-Q No Longer Nicho [facility] Route: SUB-Q, Active 2012 Medical Drug form: SOLN, [place] TID-Before Meals, Dosing Weight 101.364, kg, PRN Blood Glucose Results, Start date: 11/29/12 3:26:00, Duration: 30 day, Stop date: 12/29/12 3:25:00 Dextrose 50% 12.5 gm, 25 mL, IVP No Longer [place] [facility] Syringe Route: IVP, Drug Active 2012 Medical Form: INJ, Center Dosing Weight 101.364, kg, PRN, PRN Blood Glucose Results, Start date: 11/29/12 3:26:00, Duration: 30 day, Stop date: 12/29/12 3:25:00 glucagon 1 mg, Route: IM, IM No Longer Hendrix [facility] Drug form: Active 2012 Medical PDR/INJ, PRN, Center Dosing Weight 101.364, kg, PRN Blood Glucose Results, Start date: 11/29/12 3:26:00, Duration: 30 day, Stop date: 12/29/12 3:25:00 acetaminophen 650 mg, 20.3 mL, PO No Longer Hendrix [facility] Route: PO, Drug Active 2012 Medical form: LIQ, Q4H, Center Dosing Weight 101.364, kg, PRN Pain 1-3/Temp > 100.4 F, Start date: 11/29/12 3:25:00, Duration: 30 day, Stop date: 12/29/12 3:24:00 docusate 100 mg, 1 cap, PO No Longer Hendrix [facility] Route: PO, Drug Active 2012 Medical form: CAP, BID, Center Dosing Weight 101.364, kg, PRN Constipation, Start date: 11/29/12 3:25:00, Duration: 30 day, Stop date: 12/29/12 3:24:00 D5W 1/2NS 1,000 1,000 mL, Rate: IV No Longer [place] [facility] mL 75 ml/hr, Infuse Active 2012 Medical over: 13.3 hr, Center Route: IV, kg, Total Volume: 1,000, Start date: 11/29/12 3:21:00, Duration: 30 day, Stop date: 12/29/12 3:20:00 NS 0.45% IV 1,000 mL, Rate: IV No Longer Aaron [facility] 1000 mL 125 ml/hr, Active 2012 Medical Infuse over: 8 Center hr, Route: IV, Dosing Weight 101.364 kg, Total Volume: 1,000, Start date: 11/29/12 3:18:00, Duration: 30 day, Stop date: 12/29/12 3:17:00 Reglan 10 mg, 2 mL, IVP No Longer Porter [facility] Route: IVP, Drug Active 2012 Medical form: INJ, ONCE, Center Dosing Weight 101.364, kg, Priority: STAT, Start date: 11/29/12 2:31:00, Stop date: 11/29/12 2:31:00 Zofran 8 mg, Route: IVP No Longer Porter [facility] IVP, Drug form: Active 2012 Medical INJ, ONCE, Center Dosing Weight 101.364, kg, Priority: STAT, Start date: 11/29/12 1:52:00, Stop date: 11/29/12 1:52:00 Lortab 500 5 ml, PO, Q6H, PO No Longer [facility] mg-7.5 mg/15 mL PRN, 120 mL, for Active 2012 Medical oral elixir pain, Center Substitution Allowed, Maintenance, ELIX Phenergan 25 mg 1 supp, MI, Q6H, MI Active [facility] rectal PRN, 9 supp, 2013 Medical suppository Nausea & Center Vomiting, Substitution Allowed Phenergan 12.5 mg, 0.5 mL, IVPB No Longer [facility] Route: IVPB, Active 2012 Medical Drug form: INJ, Center ONCE, Dosing Weight 101.364, kg, Priority: STAT, Start date: 11/29/12 0:56:00, Stop date: 11/29/12 0:56:00 Zofran 4 mg, 2 mL, IVP No Longer [facility] Route: IVP, Drug 2012 Medical [...] 5 ml, Route: IVP No Longer Hendrix [facility] 0.9% IVP, Drug Form: Active 2012 Medical INJ, Dosing Center Weight 101.364, kg, PRN, PRN Line Flush, Start date: 11/28/12 19:29:00, Duration: 30 day, Stop date: 12/28/12 19:28:00 calcium 2,000 mg, 20 mL, IVPB No Longer Markus [facility] gluconate + Route: IVPB, Active 2012 Medical Sodium Chloride ONCE, Dosing Center 0.9% IV 80 mL Weight 103.21, kg, Start date: 11/17/12 11:02:00, Stop date: 11/17/12 11:02:00 magnesium 2 gm, 50 mL, IVPB No Longer Markus [facility] sulfate Route: IVPB, Active 2012 Medical Drug form: INJ, Center Q2H, Dosing Weight 103.21, kg, Total dose=4 gm, Start date: 11/17/12 10:00:00, Duration: 2 doses or times, Stop date: 11/17/12 12:00:00 aspirin 81 mg, 1 tab, PO No Longer Mark[facility] Route: PO, Drug Active 2012 Medical form: ECTAB, Center Daily, Dosing Weight 100, kg, Start date: 11/17/12 9:00:00, Duration: 30 day, Stop date: 12/16/12 9:00:00 simvastatin 40 mg, 1 tab, PO No Longer [facility] Route: PO, Drug Active 2012 Medical form: TAB, Center Daily, Dosing Weight 100, kg, Start date: 11/17/12 9:00:00, Duration: 30 day, Stop date: 12/16/12 9:00:00 prasugrel 10 mg, 1 tab, PO No Longer [facility] Route: PO, Drug Active 2012 Medical form: TAB, Center Daily, Dosing Weight 100, kg, Start date: 11/17/12 9:00:00, Duration: 30 day, Stop date: 12/16/12 9:00:00 NIFEdipine 90 mg, 1 tab, PO No Longer [facility] Route: PO, Drug Active 2012 Medical form: ERTAB, Center Daily, Dosing Weight 100, kg, Start date: 11/17/12 9:00:00, Duration: 30 day, Stop date: 12/16/12 9:00:00 Toprol-XL 100 100 mg, 1 tab, PO No Longer [facility] mg oral tablet, Route: PO, Drug Active 2012 Medical extended form: ERTAB, Center release Daily, Start date: 11/17/12 9:00:00, Duration: 30 day, Stop date: 12/16/12 9:00:00 magnesium oxide 400 mg, 1 tab, PO No Longer [facility] Route: PO, Drug Active 2012 Medical form: TAB, Center Daily, Dosing Weight 100, kg, Start date: 11/17/12 9:00:00, Duration: 30 day, Stop date: 12/16/12 9:00:00 insulin detemir 15 unit, 0.15 SUB-Q No Longer [facility] mL, Route: Active 2012 Medical SUB-Q, Drug Center form: INJ, Daily, Dosing Weight 100, kg, Start date: 11/17/12 9:00:00, Duration: 30 day, Stop date: 12/16/12 9:00:00 Zofran 8 mg, 4 mL, IV No Longer [facility] Route: IV, Drug Active 2012 Medical form: INJ, Q4H, Center Dosing Weight 103.21, kg, PRN as needed for nausea/vomiting, Start date: 11/17/12 8:56:00, Duration: 30 day, Stop date: 12/17/12 8:55:00 Reglan 10 mg 10 mg, 1 tab, PO No Longer [facility] oral tablet Route: PO, Drug Active 2012 Medical form: TAB, Center TID-Before Meals, Dosing Weight 100, kg, Start date: 11/17/12 7:30:00, Duration: 30 day, Stop date: 12/16/12 16:30:00 insulin aspart 4 unit, 0.04 mL, SUB-Q No Longer [facility] Route: SUB-Q, Active 2012 Medical Drug form: SOLN, Center TID-Before Meals, Dosing Weight 100, kg, Start date: 11/17/12 7:30:00, Duration: 30 day, Stop date: 12/16/12 16:30:00 Cymbalta 120 mg, 2 cap, PO No Longer [facility] Route: PO, Drug Active 2012 Medical form: DRC, Center Bedtime, Dosing Weight 100, kg, Start date: 11/16/12 21:00:00, Duration: 30 day, Stop date: 12/15/12 21:00:00 lisinopril 20 mg, 1 tab, PO No Longer [facility] Route: PO, Drug Active 2012 Medical form: TAB, Q12H, Center Dosing Weight 100, kg, Start date: 11/16/12 21:00:00, Duration: 30 day, Stop date: 12/16/12 9:00:00 insulin detemir 12 unit, 0.12 SUB-Q No Longer [facility] mL, Route: Active 2012 Medical SUB-Q, Drug Center form: INJ, Bedtime, Dosing Weight 100, kg, Start date: 11/16/12 21:00:00, Duration: 30 day, Stop date: 12/15/12 21:00:00 clonazepam 0.5 mg, 1 tab, PO No Longer [facility] Route: PO, Drug Active 2012 Medical form: TAB, TID, Center Dosing Weight 100, kg, Start date: 11/16/12 20:30:00, Duration: 30 day, Stop date: 12/16/12 17:00:00 Neutra-Phos 1 pkt, Route: PO No Longer [facility] PO, Drug Form: Active 2012 Medical PDR/REC, Dosing Center Weight 100, kg, TID-Before Meals, Start date: 11/16/12 20:30:00, Duration: 30 day, Stop date: 12/16/12 16:30:00 enoxaparin 40 mg, 0.4 mL, SUB-Q No Longer [place] [facility] Route: SUB-Q, Active 2012 Medical Drug form: INJ, Center [id number], Dosing Weight 100, kg, Start date: 11/16/12 [...] unit, 0.1 mL, SUB-Q No Longer [facility] Route: SUB-Q, Active 2012 Medical Drug form: SOLN, Center TID-Before Meals, Dosing Weight 100, kg, PRN Blood Glucose Results, Start date: 11/16/12 18:10:00, Duration: 30 day, Stop date: 12/16/12 18:09:00 Dextrose 50% 12.5 gm, 25 mL, IVP No Longer [facility] Syringe Route: IVP, Drug Active 2012 Medical Form: INJ, Center Dosing Weight 100, kg, PRN, PRN Blood Glucose Results, Start date: 11/16/12 18:10:00, Duration: 30 day, Stop date: 12/16/12 18:09:00 glucagon 1 mg, Route: IM, IM No Longer [facility] Drug form: Active 2012 Medical PDR/INJ, PRN, Center Dosing Weight 100, kg, PRN Blood Glucose Results, Start date: 11/16/12 18:10:00, Duration: 30 day, Stop date: 12/16/12 18:09:00 Kincaid 5/325 1 tab, Route: PO No Longer [facility] oral tablet PO, Drug Form: Active 2012 Medical TAB, Dosing Center Weight 100, kg, Q6H, PRN as needed for pain, Start date: 11/16/12 18:07:00, Duration: 30 day, Stop date: 12/16/12 18:06:00 tramadol 50 mg 50 mg, 1 tab, PO No Longer [facility] oral tablet Route: PO, Drug Active 2012 Medical form: TAB, Q4H, Center Dosing Weight 100, kg, PRN as needed for pain, Start date: 11/16/12 18:01:00, Duration: 30 day, Stop date: 12/16/12 18:00:00 promethazine 25 mg, 1 tab, PO No Longer [place] [facility] Route: PO, Drug Active 2012 Medical form: TAB, Q4H, Center Dosing Weight 100, kg, PRN as needed for nausea/vomiting, Start date: 11/16/12 18:01:00, Duration: 30 day, Stop date: 12/16/12 18:00:00 ondansetron 8 mg, 2 tab, PO No Longer [place] [facility] Route: PO, Drug Active 2012 Medical form: TABDIS, Center Q8H, Dosing Weight 100, kg, PRN Nausea & Vomiting, Start date: 11/16/12 18:01:00, Stop date: 12/16/12 18:00:00, nauea ondansetron 8 8 mg, 1 tab, PO, PO Active [place] [facility] mg oral tablet, Q8H, PRN, 2012 Medical disintegrating Dissolve under Center tongue, 10 tab, as needed for nausea/vomiting, Substitution AllowedDissolve under tongue Effient 10 mg 10 mg, 1 tab, PO Active [facility] oral tablet PO, Daily, 30 2012 Medical tab, Center Substitution Allowed, TAB tramadol 50 mg 50 mg, 1 tab, PO Active [place] [facility] oral tablet PO, Q4H, PRN, 60 2012 Medical tab, for pain, Center Substitution Allowed, TAB clonazepam 0.5 0.5 mg, 1 tab, PO Active [place] [facility] mg oral tablet PO, TID, 2012 [...] Duration: 1 doses or times, Dose=2.2ml/kg, Max [id number] -- "To be infused by Radiology Staff ONLY"Dose=2.2ml/ kg, Max [id number] -- "To be infused by Radiology Staff [...] 1 mg, 0.5 mL, IVP No Longer [place] [facility] Route: IVP, Drug Active 2012 Medical [...] mg, 4 tab, CHEW No Longer [facility] Route: CHEW, Active 2012 Medical Drug form: Center CHEWTAB, ONCE, Dosing Weight 100, kg, Priority: STAT, Start date: 11/16/12 13:29:00, Stop date: 11/16/12 13:29:00 Zofran 8 mg, 4 mL, IVP No Longer [facility] Route: IVP, Drug Active 2012 Medical form: INJ, ONCE, Center Dosing Weight 100, kg, Priority: STAT, Start date: 11/16/12 13:17:00, Stop date: 11/16/12 13:17:00 Saline Flush 5 mL, Route: IVP No Longer [facility] 0.9% IVP, Drug Form: Active 2012 Medical INJ, Dosing Center Weight 100, kg, Q8H, PRN Line Flush, Start date: 11/16/12 13:16:00, Duration: 30 day, Stop date: 12/16/12 13:15:00, Administer at least once every 8 hoursAdminister at least once every 8 hours Reglan 10 mg 10 mg, 1 tab, PO Active [facility] oral tablet PO, TID-Before 2012 Medical Meals, PRN, 42 Center tab, nausea, Substitution Allowed, TAB K[place]aid 5/325 1 tab, PO, Q6H, PO Active [facility] 11/14[facility] oral tablet PRN, 10 tab, 2013 Medical Pain, Center Substitution Allowed, Maintenance, TAB ondansetron 8 8 mg, 1 tab, PO, PO Active [facility] 11/14[facility] mg oral tablet, Q8H, PRN, 60 2012 Medical disintegrating tab, 1, 1, Center Nausea, Substitution Allowed, TABDIS insulin detemir 12 unit, 0.12 SUB-Q Active [facility] 100 units/mL mL, SUB-Q, 2012 Medical subcutaneous Bedtime, 4 mL, Center solution Substitution Allowed, INJ insulin detemir 15 unit, 0.15 SUB-Q Active [facility] 11/14[facility] 100 units/mL mL, SUB-Q, 2012 Medical subcutaneous Daily, 5 mL, [place] solution Substitution Allowed, INJ Zofran 4 mg, 1 tab, PO No Longer [facility] Route: PO, Drug Active 2012 Medical form: TAB, Q8H, Center Dosing Weight 100, kg, Start date: 11/14/12 16:00:00, Duration: 30 day, Stop date: 12/14/12 8:00:00 Reglan 10 mg 10 mg, 1 tab, PO No Longer [facility] oral tablet Route: PO, Drug Active 2012 Medical form: TAB, Center TID-Before Meals, Dosing Weight 100, kg, Start date: 11/14/12 11:30:00, Duration: 30 day, Stop date: 12/14/12 7:30:00 calcium 2,000 mg, 20 mL, IVPB No Longer [facility] gluconate + Route: IVPB, Active 2012 Medical Sodium Chloride Drug form: INJ, [place] 0.9% IV 100 mL Q2H, Dosing Weight 100, kg, Total qapa=5113 mg, Start date: 11/14/12 8:00:00, Duration: 2 doses or times, Stop date: 11/14/12 10:00:00 magnesium 2 gm, 50 mL, IVPB No Longer [facility] sulfate Route: IVPB, Active 2012 [...] 20 mEq, 100 mL, IVPB No Longer [facility] chloride Route: IVPB, Active 2012 Medical Drug form: INJ, Center ONCE, Dosing Weight 100, kg, Total dose=20mEq, Start date: 11/13/12 7:58:00, Duration: 1 doses or times, Stop date: 11/13/12 7:58:00, For K=3.5 - 3.9 mEq/LFor K=3.5 - 3.9 mEq/L calcium 1,000 mg, 10 mL, IVPB No Longer [facility] gluconate + Route: IVPB, Active 2012 Medical Sodium Chloride ONCE, Dosing Center 0.9% IV 50 mL Weight 100, kg, Start date: 11/13/12 7:56:00, Stop date: 11/13/12 7:56:00 Reglan 10 mg, 2 mL, IVP No Longer [facility] Route: IVP, Drug Active 2012 Medical form: INJ, Center Before Meals & Bedtime, Dosing Weight 100, kg, Start date: 11/12/12 16:30:00, Duration: 30 day, Stop date: 12/12/12 11:30:00 Kincaid 5/325 1 tab, Route: PO No Longer [facility] [place] oral tablet PO, Drug Form: Active jaida 2012 Medical TAB, Dosing Center Weight 100, kg, Q6H, PRN Pain, Start date: 11/12/12 16:07:00, Duration: 30 day, Stop date: 12/12/12 16:06:00 Reglan 10 mg, Route: IVP No Longer Aristides [facility] IVP, Q6H, Dosing Active 2012 Medical Weight 100, kg, Center PRN Nausea & Vomiting, Start date: 11/12/12 12:35:00, Duration: 30 day, Stop date: 12/12/12 12:34:00 insulin detemir 15 unit, Route: SUB-Q No Longer Ada [facility] SUB-Q, ONCE, Active 2012 Medical Dosing Weight Center 100, kg, Priority: NOW, Start date: 11/12/12 10:38:00, Stop date: 11/12/12 10:38:00 heparin 7,500 unit, 1.5 SUB-Q No Longer Cardoza [facility] mL, Route: Active 2012 Medical [...] Chloride 1,000 mL, Rate: IV No Longer [facility] [place] 0.9% (Bolus) IV 1,000 ml/hr, Active 2012 Medical 1,000 mL Infuse over: 1 Center hr, Route: IV, kg, Total Volume: 1,000, Priority: STAT, Start date: 11/10/12 20:17:00, Duration: 1 doses or times, Stop date: 11/10/12 21:16:00, Bolus DoseBolus Dose insulin detemir 10 unit, 0.1 mL, SUB-Q No Longer Anarski [facility] Route: SUB-Q, Active 2012 Medical Drug form: INJ, Center ONCE, Dosing Weight 100, kg, Priority: NOW, Start date: 11/10/12 11:40:00, Stop date: 11/10/12 11:40:00 Zofran ODT 4 mg, 1 tab, PO No Longer Juanjo [place] Route: PO, Drug Active 2012 Medical form: TABDIS, Center Q8H, Dosing Weight 100, kg, PRN Nausea, Start date: 11/10/12 11:04:00, Duration: 30 day, Stop date: 12/10/12 11:03:00 Phenergan 12.5 mg, 0.5 mL, IM No Longer Ahmad [place] Route: IM, Drug 2012 Medical form: INJ, PRN, Center Dosing Weight 100, kg, PRN as needed for nausea/vomiting, Start date: 11/10/12 10:00:00, Duration: 30 day, Stop date: 12/10/12 10:59:00 insulin detemir 16 unit, 0.16 SUB-Q No Longer [place] mL, Route: Active 2012 Medical SUB-Q, Drug Center form: INJ, ONCE, Dosing Weight 100, kg, Start date: 11/10/12 0:20:00, Stop date: 11/10/12 0:20:00 NovoLog 6 unit, 0.06 mL, SUB-Q No Longer Olejarski [facility] Route: SUB-Q, Active 2012 Medical Drug form: SOLN, Center TID-Before Meals, Dosing Weight 100, kg, Start date: 11/09/12 16:30:00, Duration: 30 day, Stop date: 12/09/12 11:30:00 insulin aspart 7 unit, 0.07 mL, SUB-Q No Longer Loida [facility] Route: SUB-Q, Active 2012 Medical Drug form: SOLN, Center ONCE, Dosing Weight 100, kg, Start date: 11/09/12 13:24:00, Stop date: 11/09/12 13:24:00 insulin detemir 20 unit, 0.2 mL, SUB-Q No Longer Juanjo [facility] Route: SUB-Q, Active 2012 Medical Drug form: INJ, Center Daily, Dosing Weight 100, kg, Start date: 11/09/12 9:00:00, Duration: 30 day, Stop date: 12/08/12 9:00:00 morphine 1 mg, 0.5 mL, IV No Longer Chavez [facility] Sulfate Route: IV, Drug Active 2012 Medical form: INJ, ONCE, Center Dosing Weight 100, kg, Start date: 11/09/12 5:28:00, Stop date: 11/09/12 5:28:00 insulin detemir 12 unit, 0.12 SUB-Q No Longer Olejarski [facility] mL, Route: Active 2012 Medical SUB-Q, Drug Center form: INJ, Bedtime, Dosing Weight 100, kg, Start date: 11/08/12 21:00:00, Stop date: 12/07/12 21:00:00 morphine 2 mg, 1 mL, IVP No Longer Quintanilla [facility] Sulfate Route: IVP, Drug Active 2012 Medical form: INJ, ONCE, Center Dosing Weight 100, kg, Start date: 11/08/12 18:34:00, Stop date: 11/08/12 18:34:00 ampicillin + 1,500 mg, Route: IVPB No Longer Aristides [facility] Sodium Chloride IVPB, Drug form: Active 2012 Medical 0.9% IV 100 mL PDR/INJ, ABXQ6H, Center Dosing Weight 100, kg, Start date: 11/08/12 18:00:00, Duration: 30 day, Stop date: 12/08/12 12:00:00 ciprofloxacin 500 mg, 1 tab, PO No Longer Mag[place] [facility] Route: PO, Drug Active 2012 Medical form: TAB, Center [id number], Dosing Weight 100, kg, Start date: 11/08/12 17:00:00, Duration: 30 day, Stop date: 12/08/12 5:00:00 Rocephin 1 gm, Route: IVPB No Longer Janet [facility] IVPB, Drug form: Active 2012 Medical PDR/INJ, ONCE, Center Dosing Weight 100, kg, Start date: 11/08/12 13:11:00, Stop date: 11/08/12 13:11:00 insulin aspart 2 unit, 0.02 mL, SUB-Q No Longer Ada [facility] Route: SUB-Q, Active 2012 Medical Drug form: SOLN, Center TID-Before Meals, Dosing Weight 100, kg, PRN Blood Glucose Results, Start date: 11/08/12 10:45:00, Duration: 30 day, Stop date: 12/08/12 10:44:00 insulin aspart 2 unit, 0.02 mL, SUB-Q No Longer Ada [facility] Route: SUB-Q, Active 2012 Medical Drug form: SOLN, Center TID-Before Meals, Dosing Weight 100, kg, PRN Blood Glucose Results, Start date: 11/07/12 18:47:00, Duration: 30 day, Stop date: 12/07/12 18:46:00 magnesium 2 gm, 50 mL, IVPB No Longer [place] [facility] sulfate Route: IVPB, Active 2012 Medical Drug form: INJ, Center Q2H, Dosing Weight 100, kg, Start date: 11/07/12 8:00:00, Duration: 2 doses or times, Stop date: 11/07/12 10:00:00, For Mg=1.5 - 1.7 mg/dLFor Mg=1.5 - 1.7 mg/dL magnesium 2 gm, Route: IVPB No Longer Loida [facility] sulfate IVPB, Drug form: Active 2012 Medical SOLN, ONCE, Center Dosing Weight 100, kg, Start date: 11/07/12 7:42:00, Duration: 1 doses or times, Stop date: 11/07/12 7:42:00, For Mg=1.8 - 2 mg/dLFor Mg=1.8 - 2 mg/dL Protonix 40 mg, Route: IVP No Longer Quintanilla [facility] IVP, Drug form: Active 2012 [...] 84 mg, Route: IVP No Longer Ahmad [facility] IVP, ONCE, Active 2012 Medical Dosing Weight Center 100, kg, Priority: Routine, Start date: 11/06/12 10:20:00, Stop date: 11/06/12 10:20:00 Insulin regular 10 unit, 0.1 mL, SUB-Q No Longer [place] [facility] Route: SUB-Q, 2012 Medical Drug form: SOLN, Center ONCE, Dosing Weight 100, kg, Start date: 11/06/12 9:47:00, Stop date: 11/06/12 9:47:00 insulin aspart 10 unit, 0.1 mL, SUB-Q No Longer [place] [facility] Route: SUB-Q, 2012 Medical Drug form: SOLN, Center ONCE, Dosing Weight 100, kg, Start date: 11/06/12 9:43:00, Stop date: 11/06/12 9:43:00 Lactated 1,000 mL, Rate: IV No Longer [place] Ringers (Bolus) 1,000 ml/hr, Active 2012 Medical IV 1,000 mL Infuse over: 1 Center hr, Route: IV, kg, Total Volume: 1,000, Bolus Dose, Priority: STAT, Start date: 11/06/12 9:14:00, Duration: 1 doses or times, Stop date: 11/06/12 10:13:00 Insulin regular 9 unit, 0.09 mL, SUB-Q No Longer Ada [facility] Route: SUB-Q, Active 2012 Medical [...] PO, Drug Active 2012 Medical form: ERTAB, [place] Daily, Dosing Weight 100, kg, Start date: 11/06/12 9:00:00, Duration: 30 day, Stop date: 12/05/12 9:00:00 Toprol-XL 100 100 mg, 1 tab, PO No Longer [place] mg oral tablet, Route: PO, Drug Active 2012 Medical extended form: ERTAB, [place] release Daily, Start date: 11/06/12 9:00:00, Duration: [...] Drug Active 2012 Medical coated form: ECTAB, [place] Daily, Dosing Weight 100, kg, Start date: 11/06/12 9:00:00, Duration: 30 day, Stop date: 12/05/12 9:00:00 Cymbalta 60 mg, 2 cap, PO No Longer [place] Fei Route: PO, Drug Active 2012 Medical form: DRC, [place] Daily, Dosing Weight 100, kg, Start date: [...] SUB-Q, Active 2012 Medical Drug form: SOLN, [place] TID-Before Meals, Dosing Weight 100, kg, Start date: 11/06/12 7:30:00, Duration: 30 day, Stop date: 12/05/12 16:30:00 metoclopramide 10 mg, 2 mL, IVP No Longer Aristides [facility] Route: IVP, Drug Active 2012 Medical form: INJ, Q6H, Center Dosing Weight 100, kg, PRN Nausea & Vomiting, Start date: 11/06/12 1:49:00, Duration: 30 day, Stop date: 12/06/12 1:48:00 Benadryl 25 mg, 0.5 mL, IV No Longer Gee [facility] Route: IV, Drug Active 2012 Medical form: INJ, Q4H, Center Dosing Weight 100, kg, PRN as needed for nausea/vomiting, Start date: 11/06/12 1:44:00, Duration: 30 day, Stop date: 12/06/12 1:43:00 Phenergan 12.5 mg, 0.5 mL, IVPB No Longer [place] [facility] Route: IVPB, Active 2012 Medical Drug form: INJ, Center Q6H, Dosing Weight 100, kg, PRN Nausea & Vomiting, Start date: 11/06/12 1:43:00, Stop date: 12/06/12 1:42:00 Benadryl 25 mg, 1 cap, PO No Longer [place] [facility] Route: PO, Drug Active 2012 Medical form: CAP, TID, Center Dosing Weight 100, kg, PRN Nausea, Start date: 11/06/12 0:31:00, Duration: 30 day, Stop date: 12/06/12 0:30:00 labetalol 20 mg, 4 mL, IVP No Longer [place] [facility] Route: IVP, Drug Active 2012 Medical form: INJ, ONCE, Center Dosing Weight 100, kg, Start date: 11/06/12 0:25:00, Stop date: 11/06/12 0:25:00 simvastatin 40 mg, 1 tab, PO No Longer [place] [facility] Route: PO, Drug Active 2012 Medical form: TAB, Center Bedtime, Dosing Weight 100, kg, Start date: 11/05/12 23:00:00, Duration: 30 day, Stop date: 12/05/12 21:00:00 lisinopril 20 mg, 1 tab, PO No Longer [place] [facility] Route: PO, Drug Active 2012 Medical form: TAB, Q12H, Center Dosing Weight 100, kg, Start date: 11/05/12 23:00:00, Duration: 30 day, Stop date: 12/05/12 21:00:00 insulin detemir 20 unit, 0.2 mL, SUB-Q No Longer Olejarski [facility] Route: SUB-Q, Active 2012 Medical Drug form: INJ, Center Q12H, Dosing Weight 100, kg, Start date: 11/05/12 23:00:00, Stop date: 12/05/12 21:00:00 magnesium oxide 400 mg, 1 tab, PO Active [place] 400 mg oral PO, Daily, 2012 Medical tablet tab, Center Substitution Allowed, TAB metoprolol 100 100 mg, 1 tab, PO Active [facility] mg oral tablet, PO, Daily, 2012 Medical extended tab, Center release Substitution Allowed NIFEdipine 90 90 mg, 1 tab, PO Active [facility] mg oral tablet, PO, Daily, 30 2012 Medical extended tab, Center release Substitution Allowed, ERTAB prasugrel 10 mg 10 mg, 1 tab, PO Active [facility] oral tablet PO, Daily, 2012 Medical tab, Center Substitution Allowed, TAB Cymbalta 60 mg, Daily, Active [facility] Substitution 2012 Medical Allowed Center tramadol 50 mg 50 mg, 1 tab, PO No Longer [place] [facility] oral tablet Route: PO, Drug Active 2012 Medical form: TAB, Q4H, Center Dosing Weight 100, kg, PRN For Pain, Start date: 11/05/12 22:39:00, Duration: 30 day, Stop date: 12/05/12 22:38:00 promethazine 25 mg, 1 tab, PO No Longer [place] [facility] Route: PO, Drug Active 2012 Medical form: TAB, Q6H, Center Dosing Weight 100, kg, PRN as needed for nausea/vomiting, Start date: 11/05/12 22:39:00, Duration: 30 day, Stop date: 12/05/12 22:38:00 Phenergan 25 mg, 1 tab, PO No Longer [place] Route: PO, Drug Active 2012 Medical form: [...] 5 ml, Route: IVP No Longer [place] 0.9% IVP, Drug Form: 2012 Medical INJ, Dosing Center Weight 104.545, kg, PRN, PRN Line Flush, Start date: 11/05/12 22:14:00, Duration: 30 day, Stop date: 12/05/12 23:13:00 Sodium Chloride 500 mL, Rate: IV No Longer [place] 0.9% (Bolus) IV 2,000 ml/hr, Active 2012 Medical 500 mL Infuse over: 15 Center minutes, Route: IV, kg, Total Volume: 500, Priority: STAT, Start date: 11/05/12 22:14:00, Duration: 1 doses or times, Stop date: 11/05/12 22:28:00 nitroglycerin 0.4 mg, 1 tab, SL No Longer [place] SL Tab Route: SL, Drug 2012 Medical form: TAB, Center Q5Min, Dosing Weight 104.545, kg, PRN Chest Pain, Start date: 11/05/12 22:14:00, Duration: 3 doses or times, Stop date: Limited # of times Phenergan 12.5 mg, Route: IVPB No Longer Dilan [place] IVPB, ONCE, Active 2012 Medical Dosing Weight Center 104.545, kg, Priority: STAT, Start date: 11/05/12 22:05:00, Stop date: 11/05/12 22:05:00 Phenergan 12.5 mg, 0.5 mL, IVPB No Longer Dilan [facility] Route: IVPB, Active 2012 Medical Drug form: INJ, Center ONCE, Dosing Weight 104.545, kg, Priority: STAT, Start date: 11/05/12 21:08:00, Stop date: 11/05/12 21:08:00 carvedilol 12.5 mg, 1 tab, PO No Longer Dilan [facility] Route: PO, Drug Active 2012 Medical form: TAB, ONCE, Center Dosing Weight 104.545, kg, Start date: 11/05/12 19:20:00, Stop date: 11/05/12 19:20:00 Effient 10 mg, 1 tab, PO No Longer Dilan [facility] Route: PO, Drug Active 2012 Medical form: TAB, ONCE, Center Dosing Weight 104.545, kg, Start date: 11/05/12 19:16:00, Stop date: 11/05/12 19:16:00 ondansetron 4 mg, 2 mL, IVP No Longer Dilan [facility] Route: IVP, Drug Active 2012 Medical form: INJ, ONCE, Center Dosing Weight 104.545, kg, Priority: STAT, Start date: 11/05/12 19:14:00, Stop date: 11/05/12 19:14:00 aspirin 324 mg, 4 tab, PO No Longer Dilan [facility] Route: PO, Drug Active 2012 Medical form: CHEWTAB, Center ONCE, Dosing Weight 104.545, kg, Priority: STAT, Start date: 11/05/12 19:14:00, Stop date: 11/05/12 19:14:00 Saline Flush 5 mL, Route: IVP No Longer Dilan [facility] 0.9% IVP, Drug Form: Active [...] 16 unit, 0.16 SUB-Q No Longer Fitzpatrick [facility] mL, Route: Active 2012 Medical SUB-Q, Drug Center form: INJ, Q12H, Dosing Weight 78.2, kg, Start date: 10/31/12 21:00:00, Duration: 30 day, Stop date: 11/30/12 9:00:00 insulin aspart 4 unit, 0.04 mL, SUB-Q Active [facility] 100 units/mL SUB-Q, 2012 Medical subcutaneous TID-Before Center solution Meals, 1 vial, 2, 2, Substitution Allowed, SOLN insulin detemir 16 unit, 0.16 SUB-Q Active [facility] 100 units/mL mL, SUB-Q, Q12H, 2012 Medical subcutaneous 1 vial, 2, 2, Center solution Substitution Allowed, INJ tramadol 50 mg 50 mg, 1 tab, PO Active [place] oral tablet PO, Q4H, PRN, 30 2012 Medical tab, as needed Center for pain, Substitution Allowed, TAB simvastatin 40 40 mg, 1 tab, PO Active [place] mg oral tablet PO, Bedtime, 30 [...] 8 mg, 1 tab, PO, PO Active [place] 10/31/ [place] mg oral tablet, Q8H, PRN, 60 2012 Medical disintegrating tab, 1, 1, Center Nausea, Substitution Allowed, TABDIS NIFEdipine 90 90 mg, 1 tab, PO Active [place] 10/31/ [place] mg oral tablet, PO, Daily, 30 2012 Medical extended tab, 1, 1, Center release Substitution Allowed, ERTAB Toprol-XL 100 100 mg, 1 tab, PO Active [place] 10/31/ [place] mg oral tablet, PO, Daily, 30 2012 Medical extended tab, 1, 1, Center release Substitution Allowed, ERTAB magnesium oxide 400 mg, 1 tab, PO Active [place] 400 mg oral PO, Daily, 30 2012 Medical tablet tab, 1, 1, Center Substitution Allowed, TAB lisinopril 20 20 mg, 1 tab, PO Active [place] [facility] mg oral tablet PO, Q12H, 60 2012 Medical tab, 1, 1, Center Substitution Allowed, TAB aspirin 81 mg 81 mg, 1 tab, PO Active [place] [facility] tablet, enteric PO, Daily, 30 [...] mEq, 15 mL, PO No Longer Steward [place] chloride Route: PO, Drug Active 2012 Medical form: LIQ, ONCE, Center Dosing Weight 78.2, kg, Start date: 10/30/12 7:44:00, Stop date: 10/30/12 7:44:00 Haldol 2 mg, 0.4 mL, IV No Longer Funez Kamel [facility] Route: IV, Drug Active 2012 Medical form: INJ, ONCE, Center Dosing Weight 78.2, kg, Start date: 10/30/12 5:42:00, Stop date: 10/30/12 5:42:00 tramadol 50 mg 50 mg, 1 tab, PO No Longer [place] [facility] oral tablet Route: PO, Drug 2012 Medical form: TAB, Q4H, Center Dosing Weight 78.2, kg, PRN as needed for pain, Start date: 10/29/12 9:45:00, Duration: 30 day, Stop date: 11/28/12 9:44:00 Toradol 15 15 mg, 0.5 mL, IV No Longer [place] [facility] mg/mL Route: IV, Drug 2012 Medical injectable form: INJ, ONCE, Center solution Dosing Weight 78.2, kg, Start date: 10/29/12 6:54:00, Stop date: 10/29/12 6:54:00 Toradol 15 15 mg, 0.5 mL, IV No Longer [place] [facility] mg/mL Route: IV, Drug Active 2012 Medical injectable form: INJ, ONCE, Center solution Dosing Weight 78.2, kg, Start date: 10/29/12 1:07:00, Stop date: 10/29/12 1:07:00 insulin detemir 20 unit, 0.2 mL, SUB-Q No Longer Amari [facility] Route: SUB-Q, Active 2012 Medical [...] labetalol 20 mg, Route: IVP No Longer [place] 02/22[facility] IVP, Drug form: Active 2012 Medical INJ, ONCE, Center Dosing Weight 78.2, kg, Start date: 10/27/12 19:28:00, Stop date: 10/27/12 19:28:00 labetalol 20 mg, 4 mL, IVP No Longer [place] [facility] Route: IVP, Drug Active 2012 Medical form: INJ, ONCE, Center Dosing Weight 78.2, kg, Start date: 10/27/12 17:28:00, Stop date: 10/27/12 17:28:00 Benadryl 25 mg, 1 cap, PO No Longer [place] [facility] Route: PO, Drug Active 2012 Medical form: CAP, ONCE, Center Dosing Weight 78.2, kg, Start date: 10/27/12 17:28:00, Stop date: 10/27/12 17:28:00 Reglan 10 mg 10 mg, Route: PO No Longer [place] [facility] oral tablet PO, Drug form: Active 2012 Medical TAB, Before Center Meals & Bedtime, Dosing Weight 78.2, kg, Start date: 10/27/12 16:30:00, Duration: 30 day, Stop date: 11/26/12 11:30:00 Reglan 5 mg, 1 mL, IV No Longer [place] [facility] Route: IV, Drug Active 2012 Medical form: INJ, Q8H, Center Dosing Weight 78.2, kg, Start date: 10/27/12 16:00:00, Duration: 30 day, Stop date: 11/26/12 8:00:00 Reglan 5 mg, 1 mL, IV No Longer [place] [facility] Route: IV, Drug Active 2012 Medical form: INJ, Q8H, Center Dosing Weight 78.2, kg, PRN Nausea, Start date: 10/27/12 13:08:00, Duration: 30 day, Stop date: 11/26/12 13:07:00 lisinopril 20 mg, 1 tab, PO No Longer [place] [facility] Route: PO, Drug Active 2012 Medical form: TAB, Q12H, Center Dosing Weight 78.2, kg, Start date: 10/27/12 10:00:00, Duration: 30 day, Stop date: 11/26/12 9:00:00 ergocalciferol 50,000 IntlUnit, PO No Longer Man[place]az [place] 1 cap, Route: Active 2012 Medical PO, Drug form: Center CAP, Daily, Dosing Weight 78.2, kg, Start date: 10/27/12 9:00:00, Duration: 4 day, Stop date: 10/30/12 9:00:00 magnesium oxide 400 mg, 1 tab, PO No Longer Gee [place] Route: PO, Drug Active 2012 Medical form: TAB, Center Daily, Dosing Weight 78.2, kg, Start date: 10/27/12 9:00:00, Duration: 30 day, Stop date: 11/25/12 9:00:00 Toprol-XL 100 100 mg, 1 tab, PO No Longer [place] mg oral tablet, Route: PO, Drug Active 2012 Medical extended form: ERTAB, [place] release Daily, Start date: 10/27/12 9:00:00, Duration: 30 day, Stop date: 11/25/12 9:00:00 insulin aspart 7 unit, Route: SUB-Q No Longer Manlapaz [facility] SUB-Q, Drug Active 2012 Medical form: NIRU [place] TID-Before Meals, Dosing Weight 78.2, kg, Start date: 10/26/12 12:00:00, Duration: 30 day, Stop date: 11/25/12 11:30:00 Insulin regular 10 unit, 0.1 mL, SUB-Q No Longer Steward [facility] Route: SUB-Q, Active 2012 Medical Drug form: NIRU [place] ONCE, Dosing Weight 78.2, kg, Start date: 10/26/12 10:32:00, Stop date: 10/26/12 10:32:00 NIFEdipine 90 mg, 1 tab, PO No Longer [place] [facility] extended Route: PO, Drug Active 2012 Medical release form: ERTAB, [place] Daily, Dosing Weight 78.2, kg, Start date: 10/26/12 9:00:00, Duration: 30 day, Stop date: 11/24/12 9:00:00 metoprolol 25 mg, 1 tab, PO No Longer [place] [facility] tartrate Route: PO, Drug Active 2012 Medical form: TAB, Q12H, Center Dosing Weight 78.2, kg, Start date: 10/26/12 9:00:00, Duration: 30 day, Stop date: 11/24/12 21:00:00 Reglan 10 mg, 1 tab, PO No Longer [place] Fei Route: PO, Drug Active 2012 Medical [...] Active 2012 Medical oral tablet, form: ERTAB, [place] extended ONCE, Dosing release Weight 78.2, kg, Start date: 10/25/12 14:50:00, Stop date: 10/25/12 14:50:00 Procardia XL 30 mg, 1 tab, PO No Longer [place] Fei Route: PO, Drug Active 2012 Medical form: ERTAB, Center ONCE, Dosing Weight 78.2, kg, Start date: 10/25/12 14:49:00, Stop date: 10/25/12 14:49:00 1/2 NS 1,000 mL 1,000 mL, Rate: IV No Longer [place] Fei 100 ml/hr, Active 2012 Medical Infuse over: 10 Center hr, Route: IV, kg, Total Volume: 1,000, Start date: 10/25/12 13:52:00, Duration: 30 day, Stop date: 11/24/12 13:51:00 atenolol 100 mg, 1 tab, PO No Longer [place] [facility] Route: PO, Drug Active 2012 Medical form: TAB, Center Daily, Dosing Weight 78.2, kg, Start date: 10/25/12 9:00:00, Duration: 30 day, Stop date: 11/23/12 9:00:00 Protonix 40 mg, Route: IVP No Longer [place] [facility] IVP, Drug form: Active 2012 Medical INJ, Daily, Center Dosing Weight 78.2, kg, Start date: 10/25/12 9:00:00, Duration: 30 day, Stop date: 11/23/12 9:00:00 NovoLog FlexPen 6 unit, 0.06 mL, SUB-Q No Longer Amari [facility] Route: SUB-Q, 2012 Medical Drug form: SOLN, Center TID-Before Meals, Start date: 10/25/12 7:30:00, Duration: 30 day, Stop date: 11/23/12 16:30:00 insulin lispro 6 unit, Route: SUB-Q No Longer Funez [facility] SUB-Q, 2012 Medical TID-Before Center Meals, Dosing Weight 78.2, kg, Start date: 10/25/12 7:30:00, Duration: 30 day, Stop date: 11/23/12 16:30:00 Lactated 1,000 mL, Rate: IV [facility] Ringers IV 250 ml/hr, Active 2012 Medical 1,000 mL Infuse over: 4 Center hr, Route: IV, kg, Total Volume: 1,000, Start date: 10/25/12 5:50:00, Duration: 30 day, Stop date: 11/24/12 5:49:00 Lactated 1,000 mL, Rate: IV No Longer [place] [facility] Ringers (Bolus) 100 ml/hr, Active 2012 Medical IV 1,000 mL Infuse over: 10 Center hr, Route: IV, kg, Total Volume: 1,000, Start date: 10/25/12 5:50:00, Duration: 1 doses or times, Stop date: 10/25/12 15:49:00 insulin aspart 9 unit, 0.09 mL, SUB-Q No Longer Man[place]az [facility] Route: SUB-Q, Active 2012 Medical Drug form: SOLN, Center TID-Before Meals, Dosing Weight 78.2, kg, PRN Blood Glucose Results, Start date: 10/25/12 3:53:00, Duration: 30 day, Stop date: 11/24/12 3:52:00 glucagon 1 mg, Route: IM, IM No Longer Funez [facility] Drug form: Active 2012 Medical PDR/INJ, PRN, Center Dosing Weight 78.2, kg, PRN Blood Glucose Results, Start date: 10/25/12 3:53:00, Duration: 30 day, Stop date: 11/24/12 4:52:00 Dextrose 50% 12.5 gm, 25 mL, IVP No Longer Funez [facility] 10/25[facility] Syringe Route: IVP, Drug Active 2012 Medical Form: INJ, Center Dosing Weight 78.2, kg, PRN, PRN Blood Glucose Results, Start date: 10/25/12 3:53:00, Duration: 30 day, Stop date: 11/24/12 4:52:00 Dextrose 50% 25 mL, Route: IVP No Longer Funez [facility] 10/25[facility] Syringe IVP, Dosing Active 2012 Medical Weight 78.2, kg, Center PRN, PRN Blood Glucose Results, Start date: 10/25/12 3:52:00, Duration: 30 day, Stop date: 11/24/12 4:51:00 glucagon 1 mg, Route: IM, IM No Longer Funez [facility] 10/25[facility] PRN, Dosing Active 2012 Medical Weight 78.2, kg, Center PRN Blood Glucose Results, Start date: 10/25/12 3:52:00, Duration: 30 day, Stop date: 11/24/12 4:51:00 Neutra-Phos 2 pkt, Route: PO No Longer Neeru [facility] PO, Drug Form: Active 2012 [...] 100 mL, IVPB No Longer Funez Danay [facility] chloride Route: IVPB, Active 2012 [...] mg, 1 tab, PO No Longer [facility] Route: PO, Drug Active 2012 Medical form: TAB, ONCE, Center Dosing Weight 78.2, kg, Start date: 10/24/12 15:03:00, Stop date: 10/24/12 15:03:00 NIFEdipine 60 mg, 1 tab, PO No Longer [place] [facility] extended Route: PO, Drug Active [...] mL, Rate: IV No Longer [place] [facility] Ringers (Bolus) 100 ml/hr, Active 2012 [...] mL, IVPB No Longer Dee Dee Jon [facility] chloride Route: IVPB, Active 2012 Medical Drug [...] mg, 1 tab, PO No Longer [facility] Route: PO, Drug Active 2012 Medical [...] mg, 1 tab, PO No Longer [facility] Route: PO, Drug Active 2012 Medical form: TAB, Center Daily, Dosing Weight 78.2, kg, Priority: NOW, Start date: 10/24/12 10:53:00, Duration: 30 day, Stop date: 11/23/12 9:00:00 potassium 40 mEq, 2 tab, PO No Longer [place] [facility] chloride Route: PO, Drug Active 2012 [...] 24 hr aspirin 200 mg, 1 supp, MI No Longer Oroz[place] Fei Route: MI, Drug Active 2012 Medical form: SUPP, Center [...] Duration: 1 doses or times, Dose=2.2ml/kg, Max [id number] -- "To be infused by Radiology Staff ONLY"Dose=2.2ml/ kg, Max [id number] -- "To be infused by Radiology Staff [...] Duration: 1 doses or times, Dose=2.2ml/kg, Max [id number] -- "To be infused by Radiology Staff ONLY"Dose=2.2ml/ kg, Max [id number] -- "To be infused by Radiology Staff ONLY" Insulin 100 mL, Rate: IV No Longer [place] Fei (regular) 0.1units/kg/hour Active 2012 Medical Titrate IV Titrate, Dosing Center additive 100 Weight 113.636, unit + Sodium kg, Route: IV, Chloride 0.9% Total Volume: (titrate) 100 101, Duration: mL 30 day, Stop date: 11/22/12 10:16:00, Replace Every: 24 hr Dextrose 50% 25 gm, 50 ml, IVP No Longer Isaac [facility] Syringe Route: IVP, Drug Active 2012 Medical [...] 1,000 mL, Rate: IV No Longer Isaac [facility] 0.9% IV 1,000 100 ml/hr, Active 2012 Medical mL + M.V.I.-[id number] Infuse over: Center 10 mL Daily + 10.1 hr, Route: folic acid IV 1 IV, kg, Total mg Daily + Volume: 1,011.2, thiamine IV 1 Start date: 10/23/12 8:41:00, Duration: 3 day, Stop date: 10/26/12 8:40:00 Insulin regular 100 mL, Rate: IVPB No Longer Isaac [facility] 100 unit + Start Insulin [...] gm, 50 mL, IVP No Longer Isaac [place] Syringe Route: IVP, Drug Active 2012 Medical Form: INJ, Center Dosing Weight 113.636, kg, PRN, PRN Blood Glucose Results, Start date: 10/23/12 8:17:00, Duration: 30 day, Stop date: 11/22/12 9:16:00 normal saline 1,000 mL, Rate: IV No Longer Isaac [place] 0.9% IV 1,000 150 ml/hr, Active 2012 Medical mL Infuse over: 6.7 Center hr, Route: IV, kg, Total Volume: 1,000, Start date: 10/23/12 5:07:00, Duration: 30 day, Stop date: 11/22/12 5:06:00 NS (Bolus) IV 1,000 mL, 0 IV No Longer Kristy [facility] ml/hr, Route: Active 2012 Medical IV, Drug Form: Center INJ, Dosing Weight 113.636, kg, ONCE, STAT, Start date: 10/23/12 5:06:00, Duration: 1 doses or times, Stop date: 10/23/12 5:06:00 hydrALAZINE 10 mg, 0.5 mL, IV No Longer Funez Kamel [facility] Route: IV, Drug Active 2012 Medical form: INJ, Q4H, Center Dosing Weight 113.636, kg, PRN Other -See Comment, Start date: 10/23/12 0:38:00, Duration: 30 day, Stop date: 11/22/12 0:37:00, hypertesnion acetaminophen 650 mg, 1 supp, MI No Longer Kristy [place] Route: MI, Drug Active 2012 Medical form: SUPP, Q6H, Center Dosing Weight 113.636, kg, PRN Fever, Start date: 10/23/12 0:37:00, Duration: 30 day, Stop date: 11/22/12 0:36:00 Dilaudid 0.5 mg, 0.25 mL, IV No Longer [place] Route: IV, Drug Active 2012 Medical form: INJ, Q2H, Center Dosing Weight 113.636, kg, PRN Pain, Start date: 10/23/12 0:37:00, Duration: 30 day, Stop date: 11/22/12 0:36:00 metoprolol 5 5 mg, 5 mL, IVP No Longer Funez [facility] mg/5 ml INJ Route: IVP, Drug Active 2012 Medical form: INJ, Q3H, Center Dosing Weight 113.636, kg, PRN Hypertension, Start date: 10/23/12 0:35:00, Duration: 30 day, Stop date: 11/22/12 0:34:00 Insulin regular 2 unit, 0.02 mL, SUB-Q No Longer Isaac [facility] Route: SUB-Q, Active 2012 Medical Drug form: SOLN, Center Sliding Scale, Dosing Weight 113.636, kg, PRN Blood Glucose Results, Start date: 10/23/12 0:26:00, Duration: 30 day, Stop date: 11/22/12 1:25:00 glucagon 1 mg, Route: IM, IM No Longer Isaac [place] Drug form: Active 2012 Medical PDR/INJ, PRN, Center Dosing Weight 113.636, kg, PRN Blood Glucose Results, Start date: 10/23/12 0:26:00, Duration: 30 day, Stop date: 11/22/12 1:25:00 Dextrose 50% 25 gm, 50 mL, IVP No Longer Isaac [place] Syringe Route: IVP, Drug Active 2012 Medical [...] 160 1 tab, PO, PO No Longer [place] mg-12.5 mg oral Daily, 30 tab, Active [...] Duration: 7 day, Stop date: 10/14/12 9:00:00 Kincaid 325 mg-10 15 mL, Route: PO No Longer Sushila Fei mg / 15 mL oral PO, Drug Form: Active 2012 Medical solution SOLN, Dosing Center Weight 118.2, kg, Q4H, PRN For Pain, Start date: 10/07/12 14:22:00, Duration: 30 day, Stop date: 11/06/12 14:21:00 Diovan 160 mg, 1 tab, PO No Longer Sushila [facility] Route: PO, Drug Active 2012 Medical form: TAB, Center Daily, Dosing Weight 118.2, kg, Start date: 10/07/12 14:00:00, Duration: 30 day, Stop date: 11/06/12 9:00:00 Coreg 25 mg, 1 tab, PO No Longer Sushila [facility] Route: PO, Drug Active 2012 Medical form: TAB, Q12H, Center Dosing Weight 118.2, kg, Start date: 10/07/12 14:00:00, Duration: 30 day, Stop date: 11/06/12 9:00:00 potassium 20 mEq, 100 mL, IVPB No Longer Bagshahi [facility] chloride Route: IVPB, Active 2012 Medical Drug form: INJ, Center ONCE, Dosing Weight 118.2, kg, Total dose=20 mEq, Start date: 10/07/12 7:53:00, Duration: 1 doses or times, Stop date: 10/07/12 7:53:00, For K=3.5 - 3.9 mEq/LFor K=3.5 - 3.9 mEq/L Blistex 1 appl, Route: TOP No Longer [facility] Fei TOP, PRN, Drug Active 2012 Medical form: STIC PRN Center Other -See Comment, Start date: 10/06/12 22:48:00, Duration: 30 day, Stop date: 11/05/12 22:47:00 Blistex Lip Route: TOP, TOP No Longer [facility] Fei [place] Dosing Weight Active 2012 Medical 118.2, kg, PRN, Center PRN, Start date: 10/06/12 22:46:00, Duration: 30 day, Stop date: 11/05/12 22:45:00, prn Dilaudid 0.2 mg, 0.1 mL, IV No Longer Sushila [facility] Route: IV, Drug Active 2012 Medical form: INJ, Q4H, Center Dosing Weight 118.2, kg, PRN Pain, Start date: 10/06/12 14:47:00, Duration: 30 day, Stop date: 11/05/12 14:46:00 Zofran 4 mg, 2 mL, IV No Longer Low [place] Route: IV, Drug Active 2012 Medical form: INJ, Q4H, Center Dosing Weight 118.2, kg, PRN Nausea, Start date: 10/06/12 14:47:00, Duration: 30 day, Stop date: 11/05/12 14:46:00 metoprolol 5 5 mg, 5 mL, IVP No Longer Sushila [place] mg/5 ml INJ Route: IVP, Drug Active 2012 Medical form: INJ, Q6H, Center Dosing Weight 118.2, kg, Start date: 10/06/12 12:00:00, Duration: 30 day, Stop date: 11/05/12 6:00:00 magnesium 2 gm, 50 mL, IVPB No Longer Low [place] sulfate Route: IVPB, Active 2012 Medical Drug form: INJ, Center Q2H, Dosing Weight 118.2, kg, Total dose=4 gm, Start date: 10/06/12 12:00:00, Duration: 2 doses or times, Stop date: 10/06/12 14:00:00 dexamethasone 4 mg, 1 mL, IV No Longer Sushila [place] Route: IV, Drug Active 2012 Medical form: INJ, ONCE, Center Start date: 10/06/12 9:00:00, Stop date: 10/06/12 9:00:00 acetaminophen-h 30 mL, Route: PO No Longer Sushila [place] ydrocodone 325 PO, Drug Form: 2012 Medical mg-10 mg/15 mL SOLN, Q4H, PRN Center oral solution Pain, Start date: 10/06/12 7:33:00, Duration: 30 day, Stop date: 11/05/12 7:32:00 morphine 2 mg, 1 mL, IVP No Longer Low [place] Sulfate Route: IVP, Drug Active 2012 Medical form: INJ, Q2H, Center Dosing Weight 118.2, kg, PRN Pain, Start date: 10/05/12 23:45:00, Duration: 30 day, Stop date: 11/04/12 23:44:00 Levemir FlexPen 20 unit, 0.2 mL, SUB-Q No Longer Sushila [facility] Route: SUB-Q, Active 2012 Medical Drug form: INJ, Center Q12H, Start date: 10/05/12 21:00:00, Duration: 30 day, Stop date: 11/04/12 9:00:00 carvedilol 25 mg, 1 tab, PO No Longer Sushila Fei Route: PO, Drug Active 2012 Medical form: TAB, Q12H, Center Dosing Weight 118.2, kg, Start date: 10/04/12 21:00:00, Duration: 30 day, Stop date: 11/03/12 9:00:00 Kincaid 325 mg-10 30 mL, Route: PO No [...] mg, 2 mL, IVP No Longer Low [facility] Route: IVP, Drug Active 2012 Medical form: INJ, Q4H, Center PRN Elevated BP, Start date: 10/04/12 9:05:00, Duration: 30 day, Stop date: 11/03/12 9:04:00 hydrALAZINE 20 mg, 1 mL, IVP No Longer Low [facility] Route: IVP, Drug Active 2012 [...] regular 12 unit, 0.12 SUB-Q No Longer [place] Fei mL, Route: Active 2012 Medical SUB-Q, [...] 1 mg, Route: IM, IM No Longer [facility] Drug form: Active 2012 Medical PDR/INJ, PRN, [place] Dosing Weight 118.2, kg, PRN Blood Glucose Results, Start date: 10/04/12 0:40:00, Duration: 30 day, Stop date: 11/03/12 0:39:00 Ofirmev 1,000 mg, 100 IV No Longer [facility] mL, Route: IV, Active 2012 Medical Drug form: INJ, Center Q6H, Start date: 10/03/12 18:00:00, Duration: 4 doses or times, Stop date: 10/04/12 12:00:00 Mefoxin 2 gm, Route: IVPB No Longer [facility] IVPB, Drug form: Active 2012 Medical INJ, ABXQ8H, [place] Start date: 10/03/12 16:00:00, Duration: 2 doses or times, Stop date: 10/04/12 0:00:00 Lopressor 5 mg, 5 mL, IV No Longer Low [facility] Route: IV, Drug Active 2012 Medical form: INJ, Q6H, Center Start date: 10/03/12 16:00:00, Duration: 30 day, Stop date: 11/02/12 10:00:00 Humulin R 100 10 unit, 0.1 mL, SUB-Q No Longer [facility] units/mL Route: SUB-Q, Active 2012 Medical [facility] TID-Before Meals, PRN Blood Glucose Results, Start date: 10/03/12 14:30:00, Duration: 30 day, Stop date: 11/02/12 14:29:00 Dextrose 50% in 50 mL, Route: IV No Longer [facility] Water IV IV, Start date: Active 2012 Medical 10/03/12 [place] 14:29:00, Duration: 30 day, Stop date: 11/02/12 14:28:00, PRN Blood Glucose Results Dextrose 50% in 25 mL, Route: IVP No Longer [facility]/03[facility] Water IV IVP, Start date: Active 2012 Medical 10/03/12 [place] 14:28:00, Duration: 30 day, Stop date: 11/02/12 14:27:00, PRN Blood Glucose Results Zofran 4 mg, 2 mL, IVP No Longer Low [place] Route: IVP, Drug Active 2012 Medical form: INJ, Q8H, Center PRN Nausea, Start date: 10/03/12 14:22:00, Duration: 30 day, Stop date: 11/02/12 14:21:00 naloxone 0.2 mg, 0.5 mL, IV No Longer Bagshi [place] Route: IV, Drug Active 2012 Medical form: INJ, PRN, Center PRN Narcotic Reversal, Start date: 10/03/12 14:21:00, Duration: 30 day, Stop date: 11/02/12 14:20:00 hydromorphone IV, Start date: IV No Longer Low [place] 15 mg 10/03/122012 Medical 14:19:00, Center Duration: 30, 30 ml, 118.2 Phenergan 12.5 mg, 0.5 mL, [facility]PB [facility] [place] Route: IVPB, Active 2012 Medical Drug form: INJ, Center Q4H, PRN Nausea, Start date: 10/03/12 14:08:00, Duration: 30 day, Stop date: 11/02/12 14:07:00 Phenergan 12.5 mg, 0.5 mL, IM No Longer [facility] [place] Route: IM, Drug Active 2012 Medical form: INJ, Q4H, Center PRN Nausea, Start date: 10/03/12 14:07:00, Duration: 30 day, Stop date: 11/02/12 14:06:00 Benadryl 25 mg, 0.5 mL, IM No Longer Sushila [place] Route: IM, Drug Active 2012 Medical form: INJ, Center Bedtime, PRN Insomnia, Start date: 10/03/12 14:04:00, Duration: 30 day, Stop date: 11/02/12 14:03:00 Lactated 1,000 mL, Rate: IV No Longer Low [place] Ringers 125 ml/hr, Active 2012 Medical Injection IV Infuse over: 8 Center 1,000 mL hr, Route: IV, kg, Total Volume: 1,000, Start date: 10/03/12 14:00:00, Duration: 30 day, Stop date: 11/02/12 13:59:00 ondansetron 4 mg, 2 mL, IVP No Longer Jose [facility] Route: IVP, Drug Active 2012 [...] mg, 0.25 mL, IVP No Longer Jose [facility] Route: IVP, Drug Active 2012 [...] 2 gm, Route: IVPB No Longer Sushila [place] IVPB, Drug form: Active 2012 Medical INJ, PRE OP, Center Priority: STAT, Start date: 10/03/12 5:50:00, Duration: 1 day, Stop date: 10/04/12 5:49:00 Mobic 15 mg 10 mg, PO, PO Active [place] oral tablet Daily, 30 tab, 2012 Medical Substitution Center Allowed, TAB Zetia Daily, Active [facility] Substitution 2011 Medical Allowed Center Klor-Con 10 10 mEq, 1 tab, PO Active [facility] oral tablet, PO, Daily, 180 2011 Medical extended tab, Center release Substitution Allowed, ERTAB ferrous 324 mg, 1 tab, PO Active [facility] gluconate 324 PO, Daily, 100 2011 Medical mg oral tablet tab, Center Substitution Allowed, TAB Lasix 40 mg 40 mg, 1 tab, PO Active [facility] oral tablet PO, Daily, 30 2011 Medical tab, Center Substitution Allowed, TAB Cymbalta 60 mg 60 mg, 1 cap, PO Active [facility] oral delayed PO, BID, 30 [...] mg 150 mg, 1 cap, PO Active [facility] oral capsule PO, BID, 90 [...] Medical Substitution Center Allowed NovoLog Substitution Active [facility] Allowed 2011 [facility] Levemir FlexPen Substitution Active [facility] Allowed 2011 [facility] Allergies, Adverse Reactions, Alerts Substance Category Reaction Severity Reaction Status Date Comments Source type Reported Immunizations Immunization Date Given Site Status Last Updated Comments Source influenza virus 07/14/2013 completed Diony [facility] vaccine, [facility] inactivated Center pneumococcal 07/14/2013 completed Diony [facility] 23-valent vaccine [facility] Center Results Order Name Results Value Reference Date Interpretation Comments Source Range CHEMISTRY U Preg Negative Negative 08/13 Normal [facility] (08/13/2013 13:30:00) [place] URINALYSIS UA RBC 0-2 /HPF 0 - 2 08/13 Normal [facility] URINALYSIS UA WBC 3-5 /HPF None Seen 08/13 Normal [facility] URINALYSIS UA Sq Epi Few /LPF Few 08/13 Normal [facility] URINALYSIS Micro? Performed 08/13 Normal [facility] (08/13/2013 13:30:00) Center URINALYSIS UA Hyal Cast 0-2 0 - 2 08/13 Normal [facility] (08/13/2013 13:30:00) Center URINALYSIS UA Glucose 250 mg/dL Negative 08/13 [facility] URINALYSIS UA Blood Negative Negative 08/13 Normal [facility] (08/13/2013 13:30:00) Center URINALYSIS UA Ketones >=80 mg/dL Negative 08/13 [facility] URINALYSIS UA 0.2 EU/dL 0.1 - 1.0 08/13 Normal [facility] Urobilinogen /2012 [facility] URINALYSIS UA Nitrite Negative Negative 08/13 Normal Medical (08/13/2013 13:30:00) [place] URINALYSIS UA Bili Small 1 Negative 08/13 ABN 1Result Comment: Interpret positive bilirubin results with caution. Confirmatory testing not possible due to the unavailability of reagent. Correlation with Medical *ABN* serum chemistry results recommended. [place] (08/13/2013 13:30:00) URINALYSIS UA Leuk Est Negative Negative 08/13 Normal [facility] (08/13/2013 13:30:00) [place] URINALYSIS UA Protein Negative Negative 08/13 Normal [facility] (08/13/2013 13:30:00) [place] URINALYSIS UA pH 6.0 5.0 - 8.0 08/13 Normal [facility] URINALYSIS UA Spec Grav 1.020 <=1.030 08/13 Normal [facility] URINALYSIS UA Color Yellow Yellow 08/13 Medical *NA* [place] (08/13/2013 13:30:00) URINALYSIS UA Turbidity Clear Clear 08/13 Normal [facility] (08/13/2013 13:30:00) [place] CHEMISTRY BE Mark 1 mMol/L -2-2 - 2 08/13 Normal [facility] CHEMISTRY pO2 Mark 29 mm[Hg] 20 - 49 08/13 Normal [facility] CHEMISTRY O2 Sat Mark 55.9 % 40.0 - 08/13 Normal [facility] 70.0 [facility] CHEMISTRY Temp Mark 37.0 Abby 08/13 [facility] CHEMISTRY HCO3 Mark 26 mMol/L 22 - 26 08/13 Normal [facility] CHEMISTRY pCO2 Mark 41 mm[Hg] 38 - 52 08/13 Normal [facility] CHEMISTRY pH Mark 7.41 7.28 - 08/13 Normal [facility] 7.42 [facility] CHEMISTRY eGFR 60 08/13 2Result Comment: The eGFR is calculated using the CKD-EPI formula. In most young, healthy individuals the eGFR will be >90 mL/ min/1.73m2. The eGFR declines with age. An eGFR of 60-89 may be normal in [facility] mL/min/1. some populations, particularly the elderly, for whom the CKD-EPI formula has not been extensively validated. Use of the eGFR is not recommended in the following populations: Medical [address] [place] [address] Individuals with unstable creatinine concentrations, including patients [...] 25 meq/L 24 - 32 08/13 Normal [facility] CHEMISTRY Chloride Lvl 98 meq/L 95 - 109 08/13 Normal [facility] CHEMISTRY BUN 9 mg/dL 7 - 22 08/13 Normal [facility] CHEMISTRY Calcium Lvl 9.1 mg/dL 8.5 - 10.5 08/13 Normal [facility] CHEMISTRY Glucose Lvl 301 mg/dL 70 - 99 08/13 MD 3Interpretive Data: Adult reference range values reflect the clinical guidelines of the [place] [employer]. [facility] CHEMISTRY Potassium Lvl 3.8 meq/L 3.5 - 5.1 08/13 Normal [facility] CHEMISTRY Sodium Lvl 134 meq/L 135 - 145 08/13 LOW [facility] CHEMISTRY Creatinine 1.1 mg/dL 0.5 - 1.4 08/13 Normal [facility] CHEMISTRY Bili Total 0.6 mg/dL 0.2 - 1.3 08/13 Normal [facility] CHEMISTRY ASPARTATE 17 unit/L 0 - 37 08/13 Normal [facility] TRANSAMINASE [facility] CHEMISTRY ALANINE 22 unit/L 0 - 65 08/13 Normal [facility] AMINOTRANSFER [facility] Center CHEMISTRY Albumin Lvl 3.5 g/dL 3.5 - 5.0 08/13 Normal [facility] CHEMISTRY Alk Phos 130 unit/L 39 - 136 08/13 Normal [facility] CHEMISTRY Total Protein 7.8 g/dL 6.4 - 8.4 08/13 Normal [facility] CHEMISTRY B/C Ratio 8 6 - 25 08/13 Normal [facility] CHEMISTRY AGAP 14.8 meq/L 10.0 - 12 Normal [facility] 20.0 [facility] CHEMISTRY Globulin 4.3 g/dL 2.0 - 4.0 08/13 [place] [facility] CHEMISTRY A/G Ratio 0.8 0.7 - 1.6 12 Normal [facility] HEMATOLOGY Monocytes # 0.8 K/CMM 0.0 - 0.8 08/13 Normal [facility] HEMATOLOGY Eosinophils # 0.0 K/CMM 0.0 - 0.5 08/13 Normal [facility] HEMATOLOGY Basophils # 0.0 K/CMM 0.0 - 0.2 08/13 Normal [facility] HEMATOLOGY Basophils 0.1 % 0.0 - 1.0 08/13 Normal [facility] HEMATOLOGY Lymphocytes # 1.4 K/CMM 1.0 - 5.5 08/13 Normal [facility] HEMATOLOGY Segs-Bands # 10.5 K/CMM 1.5 - 8.1 08/13 [facility] HEMATOLOGY Monocytes 6.3 % 2.0 - 12.0 08/13 Normal [facility] HEMATOLOGY Eosinophils 0.2 % 0.0 - 4.0 08/13 Normal [facility] HEMATOLOGY Lymphocytes 11.3 % 20.0 - 12 LOW [facility] 40.0 /2012 [facility] HEMATOLOGY Segs 82.1 % 45.0 - 12 [facility] 75.0 [facility] HEMATOLOGY WBC X 10x3 12.7 K/CMM 3.7 - 10.4 08/13 [facility] HEMATOLOGY Hct 37.0 % 36.0 - 12/08 Normal [facility] 48.0 [facility] HEMATOLOGY RBC X 10x6 4.36 M/CMM 4.20 - 1208 Normal [facility] 5.40 /2012 [facility] HEMATOLOGY Hgb 12.6 g/dL 12.0 - 1208 Normal [facility] 16.0 /2012 [facility] HEMATOLOGY MCV 84.8 fL 81.0 - 1208 Normal [facility] 99.0 [facility] HEMATOLOGY MCH 28.8 pg 27.0 - 12 Normal [facility] 31.0 [facility] HEMATOLOGY MCHC 34.0 g/dL 32.0 - 12 Normal [facility] 36.0 [facility] HEMATOLOGY Platelet 238 K/CMM 133 - 450 12 [facility] HEMATOLOGY MPV 9.5 fL 7.4 - 10.4 12 [facility] HEMATOLOGY RDW 13.1 % 11.5 - 08/13 Normal [facility] 14.5 Medical Center BEDSIDE Gluc POC Notify 07/26 [facility] GLUCOSE Comment 1 RN/ /2013 Medical TESTING Center BEDSIDE Glucose POC 274 mg/dL 70 - 99 07/26 [place] 1Interpretive [facility] GLUCOSE Data: Medical TESTING Center Upper Reportable Limit: 200 mg/dL. BEDSIDE Glucose POC 146 mg/dL 70 - 99 07/15 HI 2Interpretive [facility] GLUCOSE Data: Medical TESTING Center Upper Reportable Limit: 200 mg/dL. BEDSIDE Gluc POC Notify 07/15 [facility] GLUCOSE Comment 1 RN/MD /2012 Medical TESTING Center BEDSIDE Glucose POC 140 mg/dL 70 - 99 07/14 HI 3Interpretive [facility] GLUCOSE Data: Medical TESTING Center Upper Reportable Limit: 200 mg/dL. BEDSIDE Gluc POC Notify 07/14 [facility] GLUCOSE Comment 1 RN/ 2013 [facility] TESTING Center BEDSIDE Gluc POC Notify 07/14 [facility] GLUCOSE Comment 1 RN/ /2013 Medical TESTING Center BEDSIDE Glucose POC 44 mg/dL 70 - 99 07/14 LOW 4Interpretive [facility] Data: Medical TESTING Center Upper Reportable Limit: 200 mg/dL. IMMUNOLOGY [place]-HIV Negative Negative 07/14 [facility] 09/07 [facility] *NA* Center (07/14/2013 00:27:00) IMMUNOLOGY [place]-Hep C Negative Negative 07/14 [facility] [place] [facility] (07/14/2013 00:27:00) CHEMISTRY eGFR 109 07/13 5Result Comment: The eGFR is calculated using the CKD-EPI formula. In most young, healthy individuals the eGFR will be >90 mL/ min/1.73m2. The eGFR declines with age. An eGFR of 60-89 may be normal in [facility] mL/min/1.7 some populations, particularly the [...] 135 meq/L 135 - 145 07/13 Normal [facility] CHEMISTRY Chloride Lvl 95 meq/L 95 - 109 07/13 Normal [facility] CHEMISTRY AGAP 16.5 meq/L 10.0 - 07/13 Normal [facility] 20.0 [facility] CHEMISTRY Glucose Lvl 322 mg/dL 70 - 99 07/13 [place] 8Interpretive Data: Adult reference range values reflect the clinical guidelines of the [place] [employer]. [facility] CHEMISTRY Creatinine 0.6 mg/dL 0.5 - 1.4 07/13 Normal [facility] CHEMISTRY BUN 6 mg/dL 7 - 22 07/13 LOW [facility]2012 [facility] CHEMISTRY Calcium Lvl 8.6 mg/dL 8.5 - 10.5 07/13 Normal [facility]2012 [facility] CHEMISTRY CO2 27 meq/L 24 - 32 07/13 Normal [facility] CHEMISTRY Potassium Lvl 3.5 meq/L 3.5 - 5.1 07/13 Normal [facility]2012 [facility] INFECTIOUS C difficile Negative 1 Negative 07/13 Normal 1Interpretive Data: [employer] Clostridium difficile assay utilizes loop-mediated isothermal DNA amplification (LAMP) technology to detect a 204 bp region of the tcdA gene within the PaLoc gene [facility] segment present in all known toxigenic C. difficile strains. [facility] (07/13/2013 00:00:59) [place] The assay utilizes FDA cleared IVD reagents. Performance characteristics have been verified by the [facility] within the [facility]. The [facility] is authorized under the Clinical Laboratory Improvement Amendment of 1988 (CLIA-88) to perform high complexity testing. CHEMISTRY Lactic Acid 1.9 mMol/L 0.5 - 2.2 07/12 Normal [facility] CHEMISTRY eGFR 88 07/12 6Result Comment: The eGFR is calculated using the CKD-EPI formula. In most young, healthy individuals the eGFR will be >90 mL/ min/1.73m2. The eGFR declines with age. An eGFR of 60-89 may be normal in [facility] mL/min/1. some populations, particularly the elderly, for whom the CKD-EPI formula has not been extensively validated. Use of the eGFR is not recommended in the following populations: [place] [address] Center Individuals with unstable creatinine concentrations, including [...] CHEMISTRY Troponin-I null 0.00 - 07/12 Normal [facility] 0.40 [facility] HEMATOLOGY Basophils # 0.0 K/CMM 0.0 - 0.2 07/12 Normal [facility] HEMATOLOGY Eosinophils # 0.3 K/CMM 0.0 - 0.5 07/12 Normal [facility] HEMATOLOGY Monocytes # 1.0 K/CMM 0.0 - 0.8 07/12 [place] [facility] HEMATOLOGY Lymphocytes # 3.0 K/CMM 1.0 - 5.5 07/12 Normal [facility] HEMATOLOGY Segs-Bands # 6.4 K/CMM 1.5 - 8.1 07/12 Normal [facility] HEMATOLOGY Basophils 0.4 % 0.0 - 1.0 07/12 Normal [facility] HEMATOLOGY Eosinophils 2.8 % 0.0 - 4.0 07/12 Normal [facility] HEMATOLOGY Plt Morph Normal 07/12 [facility] (07/12/2013 16:29:10) [place] HEMATOLOGY RBC Morph Normal 07/12 [facility] (07/12/2013 16:29:10) Center HEMATOLOGY Monocytes 9.4 % 2.0 - 12.0 07/12 Normal [facility] HEMATOLOGY Lymphocytes 27.9 % 20.0 - 07/12 Normal [place] 40.0 [facility] HEMATOLOGY Segs 59.5 % 45.0 - 07/12 Normal [facility] 75.0 [facility] HEMATOLOGY MCV 85.3 fL 81.0 - 07/12 [facility] 99.0 [facility] HEMATOLOGY Hct 41.2 % 36.0 - 07/12 Normal [place] 48.0 [facility] HEMATOLOGY Hgb 13.6 g/dL 12.0 - 07/12 Normal [facility] 16.0 [facility] HEMATOLOGY RBC X 10x6 4.84 M/CMM 4.20 - 07/12 Normal [facility] 5.40 /2012 Medical Center HEMATOLOGY MPV 9.4 fL 7.4 - 10.4 07/12 Normal [facility] HEMATOLOGY Platelet 225 K/CMM 133 - 450 07/12 Normal Medical [place] HEMATOLOGY MCH 28.1 pg 27.0 - 07/12 Normal [facility] 31.0 Medical Center HEMATOLOGY MCHC 33.0 g/dL 32.0 - 07/12 Normal [facility] 36.0 /2012 [facility] HEMATOLOGY RDW 12.7 % 11.5 - 07/12 Normal [facility] 14.5 Medical [facility] HEMATOLOGY WBC X 10x3 10.7 K/CMM 3.7 - 10.4 07/12 [place] [facility] CHEMISTRY AGAP 12.4 meq/L 10.0 - 07/12 Normal [facility] . [facility] CHEMISTRY Calcium Lvl 8.8 mg/dL 8.5 - 10.5 07/12 Normal [facility] CHEMISTRY Chloride Lvl 102 meq/L 95 - 109 07/12 Normal [facility] CHEMISTRY Potassium Lvl 3.4 meq/L 3.5 - 5.1 07/12 LOW [facility] CHEMISTRY CO2 30 meq/L 24 - 32 07/12 Normal [facility] CHEMISTRY Sodium Lvl 141 meq/L 135 - 145 07/12 Normal [facility] CHEMISTRY Creatinine 0.8 mg/dL 0.5 - 1.4 07/12 Normal [facility] CHEMISTRY BUN 6 mg/dL 7 - 22 07/12 LOW [facility] CHEMISTRY Glucose Lvl 163 mg/dL 70 - 99 07/12 MD 9Interpretive Data: Adult reference range values reflect the clinical guidelines of the [place] [employer]. [facility] IMMUNOLOGY CDC-HIV 1/2 Negative Negative 07/12 Medical *NA* Center (07/12/2013 16:02:06) CHEMISTRY Calcium Lvl 8.4 mg/dL 8.5 - 10.5 07/12 LOW [facility] CHEMISTRY AGAP 10.4 meq/L 10.0 - 07/12 Normal [facility] CHEMISTRY eGFR 76 07/12 7Result Comment: The eGFR is calculated using the CKD-EPI formula. In most young, healthy individuals the eGFR will be >90 mL/ min/1.73m2. The eGFR declines with age. An eGFR of 60-89 may be normal in [facility] mL/min/1.7 some populations, particularly the elderly, for whom the CKD-EPI formula has not been extensively validated. Use of the eGFR is not recommended in the following populations: [address] Individuals with unstable creatinine concentrations, including [...] 140 meq/L 135 - 145 07/12 Normal [facility] CHEMISTRY Chloride Lvl 103 meq/L 95 - 109 07/12 Normal [facility] CHEMISTRY Potassium Lvl 3.4 meq/L 3.5 - 5.1 07/12 LOW [facility]2012 [facility] CHEMISTRY BUN 9 mg/dL 7 - 22 07/12 Normal [facility] CHEMISTRY Creatinine 0.9 mg/dL 0.5 - 1.4 07/12 Normal [facility] CHEMISTRY Glucose Lvl 296 mg/dL 70 - 99 07/12 HI 10Interpretive Data: Adult reference range values reflect the clinical guidelines of the [place] [employer]. [facility] CHEMISTRY CO2 30 meq/L 24 - 32 07/12 Normal [facility] CHEMISTRY Troponin-I null 0.00 - 11 Normal [facility] 0.40 [facility] CHEMISTRY Lipase Lvl 76 unit/L 73 - 393 07/12 Normal [facility] CHEMISTRY B/C Ratio 11 6 - 25 07/12 Normal [facility] CHEMISTRY ASPARTATE 25 unit/L 0 - 37 07/12 Normal [facility] CHEMISTRY Bili Total 0.4 mg/dL 0.2 - 1.3 07/12 Normal [facility] CHEMISTRY Alk Phos 119 unit/L 39 - 136 07/12 Normal [facility] CHEMISTRY Albumin Lvl 3.9 g/dL 3.5 - 5.0 07/12 Normal [facility] CHEMISTRY ALANINE 29 unit/L 0 - 65 07/12 Normal [facility] AMINO [facility] CHEMISTRY Total Protein 8.1 g/dL 6.4 - 8.4 07/12 Normal [facility] CHEMISTRY Globulin 4.2 g/dL 2.0 - 4.0 07/12 HI [facility] CHEMISTRY A/G Ratio 0.9 0.7 - 1.6 07/12 Normal [facility] HEMATOLOGY Monocytes # 0.6 K/CMM 0.0 - 0.8 07/12 Normal [facility] HEMATOLOGY Segs-Bands # 9.5 K/CMM 1.5 - 8.1 07/12 HI [facility] HEMATOLOGY Eosinophils # 0.2 K/CMM 0.0 - 0.5 07/12 Normal [facility]2012 [facility] HEMATOLOGY Lymphocytes # 2.1 K/CMM 1.0 - 5.5 07/12 Normal [facility] HEMATOLOGY Basophils 0.2 % 0.0 - 1.0 07/12 Normal [facility] HEMATOLOGY Neut Vac Slight None Seen 07/12 ABN [facility] *ABN* [place] (07/12/2013 03:30:00) HEMATOLOGY Hypochrom Slight None Seen 07/12 Normal [facility] (07/12/2013 03:30:00) [place] HEMATOLOGY Basophils # 0.0 K/CMM 0.0 - 0.2 07/12 Normal [facility] HEMATOLOGY RBC Morph Normal 07/12 Normal [facility] (07/12/2013 03:30:00) [place] HEMATOLOGY Eosinophils 1.6 % 0.0 - 4.0 07/12 Normal [facility] HEMATOLOGY Monocytes 4.6 % 2.0 - 12.0 07/12 Normal [facility] HEMATOLOGY Segs 76.6 % 45.0 - 07/12 HI [facility] 75.0 [facility] HEMATOLOGY Lymphocytes 17.0 % 20.0 - 07/12 LOW [facility] 40.0 [facility] HEMATOLOGY Plt Morph Normal 07/12 Normal [facility] (07/12/2013 03:30:00) [place] HEMATOLOGY MCHC 32.4 g/dL 32.0 - 07/12 Normal [facility] 36.0 [facility] HEMATOLOGY MCH 27.4 pg 27.0 - 07/12 Normal [facility] 31.0 /2012 [facility] HEMATOLOGY RDW 12.7 % 11.5 - 07/12 Normal [facility] 14.5 /2012 [facility] HEMATOLOGY Platelet 235 K/CMM 133 - 450 07/12 Normal [facility] HEMATOLOGY MPV 9.4 fL 7.4 - 10.4 07/12 Normal [facility] HEMATOLOGY Hgb 12.9 g/dL 12.0 - 07/12 Normal [facility] 16.0 [facility] HEMATOLOGY MCV 84.3 fL 81.0 - 07/12 Normal [facility] 99.0 /2012 [facility] HEMATOLOGY Hct 39.6 % 36.0 - 07/12 Normal [facility] 48.0 [facility] HEMATOLOGY WBC X 10x3 12.4 K/CMM 3.7 - 10.4 07/12 HI [facility] HEMATOLOGY RBC X 10x6 4.70 M/CMM 4.20 - 07/12 Normal [facility] 5.40 /2012 [facility] CHEMISTRY U Preg Negative Negative 07/12 Normal [facility] (07/12/2013 03:00:00) Center URINALYSIS UA Leuk Est Negative Negative 07/12 Normal [facility] (07/12/2013 03:00:00) Center URINALYSIS UA 0.2 EU/dL 0.1 - 1.0 07/12 Normal [facility] Urobilinogen [facility] URINALYSIS UA Nitrite Negative Negative 07/12 Normal [facility] (07/12/2013 03:00:00) Center URINALYSIS UA Bili Negative Negative 07/12 [facility] *NA* Center (07/12/2013 03:00:00) URINALYSIS UA pH 6.0 5.0 - 8.0 07/12 Normal [facility] URINALYSIS UA Protein Negative Negative 07/12 Normal [facility] mg/dL [facility] URINALYSIS UA Glucose >=1000 Negative 07/12 ABN [facility] mg/dL [facility] URINALYSIS UA Ketones 15 mg/dL Negative 07/12 ABN [facility] URINALYSIS UA Spec Grav 1.020 <=1.030 07/12 Normal [facility] URINALYSIS UA Blood Negative Negative 07/12 Normal [facility] (07/12/2013 03:00:00) [place] URINALYSIS UA Color Yellow Yellow 07/12 [facility] Medical *NA* Center (07/12/2013 03:00:00) URINALYSIS UA Turbidity Clear Clear 07/12 Normal [facility] (07/12/2013 03:00:00) [place] URINALYSIS UA RBC 0-2 /HPF 0 - 2 07/12 Normal [facility] URINALYSIS UA WBC 3-5 /HPF None Seen 07/12 Normal [facility] URINALYSIS UA Sq Epi Many /LPF Few 07/12 ABN [facility]2012 [facility] URINALYSIS UA Bacteria Few /HPF None Seen 07/12 Normal [facility] URINALYSIS UA [place] Yeast Moderate None Seen 07/12 [facility] URINALYSIS Micro? Performed 07/12 Normal [facility] (07/12/2013 03:00:00) [place] Abdomen/Pel Abdomen/Pelvi EXAM: CT ABDOMEN WITH CONTRAST 07/12 - [facility] vis w s w contrast - Medical contrast CT CT EXAM: CT PELVIS WITH CONTRAST This report was dictated by a Heating Technician/Fellow. I have personally reviewed the images as [...] mg/dL 70 - 99 04/03 HI 1Interpretive [facility] GLUCOSE Lifscn /2012 Data: Medical TESTING Center Upper Reportable Limit: 200 mg/dL. BEDSIDE Comment2 Sliding 04/03 [facility] [place] GLUCOSE Scale /2012 Medical TESTING Center BEDSIDE Comment1 Notify 04/03 NA [facility] GLUCOSE RN/MD /2012 [facility] TESTING Center BEDSIDE Comment1 Notify 04/03 [facility] GLUCOSE RN/MD /2012 Medical TESTING Center BEDSIDE Gluc POC 198 mg/dL 70 - 99 04/03 HI 2Interpretive [facility] GLUCOSE Lifscn Data: [facility] [place] Upper Reportable Limit: 200 mg/dL. BEDSIDE Comment2 Sliding 04/03 NA [facility] GLUCOSE Scale [facility] TESTING [place] Abdomen 2 Abdomen 2 EXAM: XR ABDOMEN 1 VIEW 04/03 - [facility] views - Medical Center DATE: [...] Cho MD. BEDSIDE Comment2 Sliding 04/03 NA [facility] GLUCOSE Scale /2012 [facility] TESTING [place] BEDSIDE Comment1 Notify 04/03 NA [facility] GLUCOSE RN/ /2012 [facility] TESTING Center BEDSIDE Gluc POC 182 mg/dL 70 - 99 04/03 HI 3Interpretive [facility] GLUCOSE Lifscn Data: [facility] [place] Upper Reportable Limit: 200 mg/dL. CHEMISTRY Troponin-T null 0.000 - 04/03 Normal [facility] 0.100 [facility] CHEMISTRY Troponin-I null 0.00 - 04/03 Normal [facility] 0.40 [facility] CHEMISTRY Total CK 41 unit/L 12 - 191 04/03 Normal [facility] CHEMISTRY Creatinine 0.6 mg/dL 0.5 - 1.4 04/03 Normal [facility] Lvl [facility] CHEMISTRY Sodium Lvl 137 meq/L 135 - 145 04/03 Normal [facility] CHEMISTRY CO2 25 meq/L 24 - 32 04/03 Normal [facility] CHEMISTRY Calcium Lvl 8.2 mg/dL 8.5 - 10.5 04/03 LOW [facility] CHEMISTRY AGAP 17.9 meq/L 10.0 - 04/03 Normal [facility] 20.0 [facility] CHEMISTRY Potassium Lvl 3.9 meq/L 3.5 - 5.1 04/03 Normal [facility] CHEMISTRY Chloride Lvl 98 meq/L 95 - 109 04/03 Normal [facility] CHEMISTRY Glucose Lvl 266 mg/dL 70 - 99 04/03 HI 6Interpretive Data: Adult reference range values reflect the clinical guidelines of the [place] [employer]. [facility] CHEMISTRY BUN 3 mg/dL 7 - 22 04/03 LOW [facility] CHEMISTRY eGFR 109 04/03 NA 4Result Comment: The eGFR is calculated using the CKD-EPI formula. In most young, healthy individuals the eGFR will be > 90 mL/min/1.73m2. The eGFR declines with age. An eGFR of 60-89 may be normal in [facility] mL/min/1.7 some populations, particularly the elderly, for whom the CKD-EPI formula has not been extensively validated. Use of the eGFR is not recommended in the following populations: [address] Individuals with unstable creatinine concentrations, including [...] HEMATOLOGY Hgb 10.5 g/dL 12.0 - 04/03 [facility] 16.0 [facility] HEMATOLOGY RBC 4.22 M/CMM 4.20 - 04/03 [facility] 5.40 /2012 [facility] HEMATOLOGY WBC 10.3 K/CMM 3.7 - 10.4 04/03 Normal [facility] HEMATOLOGY Hct 33.5 % 36.0 - 04/03 [facility] 48.0 [facility] HEMATOLOGY MPV 8.8 fL 7.4 - 10.4 04/03 Normal [facility] HEMATOLOGY Platelet 276 K/CMM 133 - 450 04/03 Normal [facility] HEMATOLOGY RDW 18.7 % 11.5 - 04/03 HI [facility] 14.5 [facility] HEMATOLOGY MCHC 31.2 g/dL 32.0 - 04/03 [facility] 36.0 [facility] HEMATOLOGY MCH 24.8 pg 27.0 - 04/03 [facility] 31.0 [facility] HEMATOLOGY MCV 79.5 fL 81.0 - 04/03 [facility] 99.0 [facility] HEMATOLOGY Segs 58.6 % 45.0 - 04/03 Normal 75.0 [facility] HEMATOLOGY Lymphocytes 29.9 % 20.0 - 04/03 Normal [place] 40.0 [facility] HEMATOLOGY Basophils 1.3 % 0.0 - 1.0 04/03 HI [facility] HEMATOLOGY Lymphocytes # 3.1 K/CMM 1.0 - 5.5 04/03 Normal [facility] HEMATOLOGY Segs-Bands # 6.0 K/CMM 1.5 - 8.1 04/03 Normal [facility] HEMATOLOGY Eosinophils 2.8 % 0.0 - 4.0 04/03 Normal [facility] HEMATOLOGY Eosinophils # 0.3 K/CMM 0.0 - 0.5 04/03 Normal [facility] HEMATOLOGY Monocytes # 0.8 K/CMM 0.0 - 0.8 04/03 Normal [facility] HEMATOLOGY Basophils # 0.1 K/CMM 0.0 - 0.2 04/03 Normal [facility] HEMATOLOGY Monocytes 7.4 % 2.0 - 12.0 04/03 Normal [facility] CHEMISTRY Troponin-I null 0.00 - 04/03 Normal 0. [facility] CHEMISTRY Total CK 51 unit/L 04/03 Normal [facility] CHEMISTRY Troponin-T null 0.000 - 04/03 Normal [place] 0.100 [facility] CHEMISTRY Bili Direct 0.1 mg/dL 0.0 - 0.3 04/03 Normal [facility] CHEMISTRY Bili Total 0.4 mg/dL 0.2 - 1.3 04/03 Normal [facility] CHEMISTRY Bili Indirect 0.3 mg/dL 0.0 - 1.0 04/03 Normal [facility] CHEMISTRY ALT 22 unit/L 0 - 65 04/03 Normal [facility] CHEMISTRY AST 31 unit/L 0 - 37 04/03 Normal [facility] CHEMISTRY Lipase Lvl 54 unit/L 73 - 393 04/03 LOW [facility] CHEMISTRY Troponin-I null 0.00 - 04/02 Normal [place] 0.40 [facility] CHEMISTRY Total CK 24 unit/L 12 - 04/02 Normal [facility] CHEMISTRY AGAP 17.5 meq/L 10.0 - 04/02 Normal [facility] 20. [facility] CHEMISTRY eGFR 88 04/02 NA 5Result Comment: The eGFR is calculated using the CKD-EPI formula. In most young, healthy individuals the eGFR will be > 90 mL/min/1.73m2. The eGFR declines with age. An eGFR of 60-89 may be normal in [facility] mL/min/1.7 some populations, particularly the elderly, for whom the CKD-EPI formula has not been extensively validated. Use of the eGFR is not recommended in the following populations: [address] Individuals with unstable creatinine concentrations, including [...] 0.8 mg/dL 0.5 - 1.4 04/02 Normal [facility] Lvl [facility] CHEMISTRY Potassium Lvl 3.5 meq/L 3.5 - 5.1 04/02 Normal [facility] CHEMISTRY Chloride Lvl 97 meq/L 95 - 109 04/02 Normal [facility] CHEMISTRY Glucose Lvl 163 mg/dL 70 - 99 04/02 HI 7Interpretive Data: Adult reference range values reflect the clinical guidelines of the [place] [employer]. [facility] CHEMISTRY BUN 2 mg/dL 7 - 22 04/02 LOW [facility] CHEMISTRY Sodium Lvl 136 meq/L 135 - 145 04/02 Normal [facility] CHEMISTRY Calcium Lvl 8.6 mg/dL 8.5 - 10.5 04/02 Normal [facility] CHEMISTRY CO2 25 meq/L 24 - 32 04/02 Normal [facility] HEMATOLOGY Platelet 378 K/CMM 133 - 450 04/02 Normal [facility] HEMATOLOGY MCHC 33.4 g/dL 32.0 - 04/02 Normal [facility] 36. [facility] HEMATOLOGY RDW 17.3 % 11.5 - 04/02 HI [facility] 14.5 [facility] HEMATOLOGY MCV 76.0 fL 81.0 - 04/02 [facility] 99.0 /2012 [facility] HEMATOLOGY MCH 25.4 pg 27.0 - 04/02 [facility] 31.0 /2012 [facility] HEMATOLOGY Hct 34.2 % 36.0 - 04/02 [facility] 48.0 [facility] HEMATOLOGY RBC 4.50 M/CMM 4.20 - 04/02 Normal [facility] 5.40 /2012 [facility] HEMATOLOGY Hgb 11.4 g/dL 12.0 - 04/02 [facility] 16.0 [facility] HEMATOLOGY WBC 9.0 K/CMM 3.7 - 10.4 04/02 Normal [facility] HEMATOLOGY MPV 8.4 fL 7.4 - 10.4 04/02 Normal [facility] HEMATOLOGY Microcyte 2+ None Seen 04/02 ABN [facility] Center (04/02/2013 17:09:00) HEMATOLOGY Basophils # 0.1 K/CMM 0.0 - 0.2 04/02 Normal [facility] HEMATOLOGY Eosinophils # 0.1 K/CMM 0.0 - 0.5 04/02 Normal [facility] HEMATOLOGY Monocytes # 0.7 K/CMM 0.0 - 0.8 04/02 Normal [facility] HEMATOLOGY Lymphocytes # 1.4 K/CMM 1.0 - 5.5 04/02 Normal [facility] HEMATOLOGY Segs-Bands # 6.7 K/CMM 1.5 - 8.1 04/02 Normal [facility] HEMATOLOGY Basophils 1.3 % 0.0 - 1.0 04/02 HI [facility] HEMATOLOGY Lymphocytes 15.2 % 20.0 - 04/02 [facility] 40.0 [facility] HEMATOLOGY Segs 74.3 % 45.0 - 04/02 [facility] 75.0 [facility] HEMATOLOGY Eosinophils 1.6 % 0.0 - 4.0 04/02 Normal [facility] HEMATOLOGY Monocytes 7.6 % 2.0 - 12.0 04/02 [facility] Chest 1view Chest 1view EXAM: XR CHEST 1 VIEW 04/02 - - [facility] DATE: 2013-04-02 1638 hours Read [...] mg/dL 70 - 99 03/09 HI 1Interpretive [facility] GLUCOSE Lifscn Data: [facility] Upper Reportable Limit: 200 mg/dL. BEDSIDE Comment1 Notify 03/09 NA [facility] GLUCOSE RN/ Medical [facility] Center CHEMISTRY eGFR 88 03/09 NA 4Result Comment: The eGFR is calculated using the CKD-EPI formula. In most young, healthy individuals the eGFR will be > 90 mL/min/1.73m2. The eGFR declines with age. An eGFR of 60-89 may be normal in [facility] mL/min/1.7 some populations, particularly the elderly, for whom the CKD-EPI formula has not been extensively validated. Use of the eGFR is not recommended in the following populations: [place] [address] Center Individuals with unstable creatinine concentrations, including [...] 7 mg/dL 7 - 22 03/09 Normal [facility] CHEMISTRY Creatinine 0.8 mg/dL 0.5 - 1.4 03/09 Normal [facility] Lvl [facility] CHEMISTRY Sodium Lvl 138 meq/L 135 - 145 03/09 Normal [facility] CHEMISTRY Potassium Lvl 4.7 meq/L 3.5 - 5.1 03/09 Normal [facility] CHEMISTRY Chloride Lvl 104 meq/L 95 - 109 03/09 Normal [facility] CHEMISTRY CO2 23 meq/L 24 - 32 03/09 LOW [facility] CHEMISTRY Bili Total 0.2 mg/dL 0.2 - 1.3 07/ Normal [facility] CHEMISTRY AST 22 unit/L 0 - 37 / Normal [facility]2012 [facility] CHEMISTRY Total Protein 4.8 g/dL 6.4 - 8.4 07 LOW [facility]2012 [facility] CHEMISTRY Calcium Lvl 7.4 mg/dL 8.5 - 10.5 03/09 LOW [facility]2012 [facility] CHEMISTRY Albumin Lvl 1.9 g/dL 3.5 - 5.0 03/09 LOW [facility]2012 [facility] CHEMISTRY Glucose Lvl 192 mg/dL 70 - 99 07/ HI 7Interpretive Data: Adult reference range values reflect the clinical guidelines of the [place] [employer]. [facility] CHEMISTRY Alk Phos 162 unit/L 39 - 136 03/09 HI 2012 [facility] CHEMISTRY ALT 18 unit/L 0 - 65 03/09 Normal [facility]2012 [facility] CHEMISTRY A/G Ratio 0.7 0.7 - 1.6 03/09 Normal [facility]2012 [facility] CHEMISTRY Globulin 2.9 g/dL 2.0 - 4.0 03/09 Normal [facility]2012 [facility] CHEMISTRY AGAP 15.7 meq/L 10.0 - 07 Normal [facility] 20.0 [facility] CHEMISTRY B/C Ratio 9 6 - 25 03/09 Normal [facility]2012 [facility] HEMATOLOGY Eosinophils 1.9 % 0.0 - 4.0 / Normal [facility]2012 [facility] HEMATOLOGY Basophils 1.0 % 0.0 - 1.0 03/09 Normal [facility]2012 [facility] HEMATOLOGY Anisocyte 1+ None Seen 03/09 ABN Medical *ABN* Center (03/09/2013 01:09:00) HEMATOLOGY Lymphocytes # 2.0 K/CMM 1.0 - 5.5 07/ Normal [facility]2012 [facility] HEMATOLOGY Monocytes # 0.6 K/CMM 0.0 - 0.8 07/ Normal [facility]2012 [facility] HEMATOLOGY Eosinophils # 0.1 K/CMM 0.0 - 0.5 07/ Normal [facility]2012 [facility] HEMATOLOGY Basophils # 0.1 K/CMM 0.0 - 0.2 07/ Normal [facility]2012 [facility] HEMATOLOGY Segs-Bands # 4.6 K/CMM 1.5 - 8.1 07 Normal [facility] HEMATOLOGY Segs 62.8 % 45.0 - 07/ Normal [place] 75.0 /2012 Medical Center HEMATOLOGY Lymphocytes 26.4 % 20.0 - 07/04 Normal [place] 40.0 /2012 Medical Center HEMATOLOGY Monocytes 7.9 % 2.0 - 12.0 07/ Normal /2012 Medical Center HEMATOLOGY RDW 20.7 % 11.5 - 07/04 [facility] [place] 14.5 /2012 Medical Center HEMATOLOGY Platelet 304 K/CMM 133 - 450 07 Normal /2012 [facility] Center HEMATOLOGY MPV 8.0 fL 7.4 - 10.4 07/ Normal [facility] HEMATOLOGY Hct 24.9 % 36.0 - 07/ LOW [place] 48.0 /2012 [facility] HEMATOLOGY MCV 79.3 fL 81.0 - 07/ LOW [place] 99.0 /2012 [facility] HEMATOLOGY MCH 24.7 pg 27.0 - 07 LOW [place] 31.0 /2012 Medical Center HEMATOLOGY MCHC 31.2 g/dL 32.0 - 07 LOW [place] 36.0 /2012 [facility] Center HEMATOLOGY RBC 3.14 M/CMM 4.20 - 07 LOW [place] 5.40 /2012 Medical Center HEMATOLOGY Hgb 7.8 g/dL 12.0 - 07/ LOW [place] 16.0 /2012 [facility] HEMATOLOGY WBC 7.4 K/CMM 3.7 - 10.4 03/09 Normal [facility] BEDSIDE Gluc POC 131 mg/dL 70 - 99 03/09 HI 2Interpretive [facility] GLUCOSE Lifne Data: Medical TESTING Center Upper Reportable Limit: 200 mg/dL. BEDSIDE Comment1 Notify 03/09 NA [facility] GLUCOSE RN/MD /2012 Medical TESTING Center BEDSIDE Comment1 Notify 03/09 NA [facility] GLUCOSE RN/MD /2012 Medical TESTING Center BEDSIDE Gluc POC 155 mg/dL 70 - 99 03/09 [place] 3Interpretive [facility] GLUCOSE Lifsc Data: Medical TESTING Center Upper Reportable Limit: 200 mg/dL. CHEMISTRY Magnesium Lvl 1.5 mg/dL 1.8 - 2.4 03/08 LOW [facility] CHEMISTRY A/G Ratio 0.7 0.7 - 1.6 03/08 Normal Medical Center CHEMISTRY B/C Ratio 8 6 - 25 03/08 Normal [facility] CHEMISTRY Globulin 2.8 g/dL 2.0 - 4.0 03/08 Normal [facility] CHEMISTRY AGAP 15.8 meq/L 10.0 - 03/08 Normal [facility] [facility] 20.0 [facility] CHEMISTRY Potassium Lvl 3.8 meq/L 3.5 - 5.1 03/08 Normal [facility] CHEMISTRY Chloride Lvl 100 meq/L 95 - 109 03/08 Normal [facility] CHEMISTRY CO2 23 meq/L 24 - 32 03/08 LOW [facility] CHEMISTRY Total Protein 4.8 g/dL 6.4 - 8.4 03/08 LOW [facility] CHEMISTRY AST 10 unit/L 0 - 37 03/08 Normal [facility] CHEMISTRY Calcium Lvl 7.6 mg/dL 8.5 - 10.5 03/08 LOW [facility] CHEMISTRY Bili Total 0.3 mg/dL 0.2 - 1.3 03/08 Normal [facility] CHEMISTRY eGFR 88 03/08 NA 5Result Comment: The eGFR is calculated using the CKD-EPI formula. In most young, healthy individuals the eGFR will be > 90 mL/min/1.73m2. The eGFR declines with age. An eGFR of 60-89 may be normal in [facility] mL/min/1. some populations, particularly the elderly, for whom the CKD-EPI formula has not been extensively validated. Use of the eGFR is not recommended in the following populations: [address] Individuals with unstable creatinine concentrations, including [...] values reflect the clinical guidelines of the [place] [employer]. [facility] CHEMISTRY BUN 6 mg/dL 7 - 22 03/08 LOW [facility] CHEMISTRY Creatinine 0.8 mg/dL 0.5 - 1.4 03/08 Normal [facility] CHEMISTRY Sodium Lvl 135 meq/L 135 - 145 07 Normal [facility] CHEMISTRY Alk Phos 173 unit/L 39 - 136 07 HI [facility] CHEMISTRY ALT 16 unit/L 0 - 65 07 Normal [facility] CHEMISTRY Albumin Lvl 2.0 g/dL 3.5 - 5.0 03/08 LOW [facility] CHEMISTRY Lipase Lvl 54 unit/L 73 - 393 03/08 LOW [facility] CHEMISTRY Amylase Lvl 30 unit/L 25 - 115 03/08 Normal [facility] HEMATOLOGY Basophils # 0.1 K/CMM 0.0 - 0.2 03/08 Normal [facility] HEMATOLOGY Anisocyte 1+ None Seen 03/08 ABN [facility] *[facility]* Center (03/08/2013 03:01:00) HEMATOLOGY Microcyte 1+ None Seen 03/08 [facility] *ABN* Center (03/08/2013 03:01:00) HEMATOLOGY Eosinophils # 0.2 K/CMM 0.0 - 0.5 03/08 Normal [facility] HEMATOLOGY Monocytes # 0.8 K/CMM 0.0 - 0.8 03/08 Normal [facility] HEMATOLOGY Lymphocytes 34.2 % 20.0 - 07 Normal [facility] 40.0 [facility] HEMATOLOGY Segs 53.3 % 45.0 - 03/08 [facility] 75.0 [facility] HEMATOLOGY Lymphocytes # 3.0 K/CMM 1.0 - 5.5 03/08 Normal [facility] HEMATOLOGY Segs-Bands # 4.7 K/CMM 1.5 - 8.1 03/08 Normal [facility] HEMATOLOGY Basophils 0.9 % 0.0 - 1.0 07/ Normal [facility] HEMATOLOGY Eosinophils 2.6 % 0.0 - 4.0 07/ Normal [facility] HEMATOLOGY Monocytes 9.0 % 2.0 - 12.0 / Normal [facility] HEMATOLOGY Hgb 7.9 g/dL 12.0 - 07 LOW [facility] 16.0 [facility] HEMATOLOGY RBC 3.12 M/CMM 4.20 - 07/03 LOW [facility] 5.40 /2012 [facility] HEMATOLOGY MPV 8.0 fL 7.4 - 10.4 07/ Normal [facility] HEMATOLOGY Platelet 294 K/CMM 133 - 450 07/ Normal [facility] HEMATOLOGY MCH 25.3 pg 27.0 - 07/ [facility] 31.0 /2012 [facility] HEMATOLOGY MCV 79.7 fL 81.0 - 07/ [facility] 99.0 /2012 [facility] HEMATOLOGY Hct 24.9 % 36.0 - 07/ [facility] 48.0 /2012 [facility] HEMATOLOGY WBC 8.8 K/CMM 3.7 - 10.4 07/ Normal [facility] HEMATOLOGY RDW 21.4 % 11.5 - 07/03 [facility] 14.5 /2012 [facility] HEMATOLOGY MCHC 31.8 g/dL 32.0 - 07/ [facility] 36.0 /2012 [facility] CHEMISTRY Troponin-I null 0.00 - 07 Normal [facility] 0.40 [facility] CHEMISTRY Total CK 26 unit/L 12 - 191 07 Normal [facility] CHEMISTRY A/G Ratio 0.6 0.7 - 1.6 07/ LOW [facility] CHEMISTRY Bili Total 0.6 mg/dL 0.2 - 1.3 07 Normal [facility] CHEMISTRY Bili Direct 0.3 mg/dL 0.0 - 0.3 07/ Normal [facility] CHEMISTRY Alk Phos 190 unit/L 39 - 136 07 [facility] CHEMISTRY Total Protein 5.2 g/dL 6.4 - 8.4 07 [facility] CHEMISTRY Globulin 3.2 g/dL 2.0 - 4.0 07/ Normal [facility] CHEMISTRY Bili Indirect 0.3 mg/dL 0.0 - 1.0 07/ Normal [facility] CHEMISTRY AST 11 unit/L 0 - 37 07 Normal [facility] CHEMISTRY Albumin Lvl 2.0 g/dL 3.5 - 5.0 07 LOW [facility] CHEMISTRY ALT 19 unit/L 0 - 65 07/ Normal [facility] CHEMISTRY Amylase Lvl 26 unit/L 25 - 115 07 Normal [facility] CHEMISTRY Lipase Lvl 49 unit/L 73 - 393 07 LOW [facility] HEMATOLOGY MPV 8.3 fL 7.4 - 10.4 07 Normal [facility] HEMATOLOGY MCH 24.7 pg 27.0 - 07 [facility] 31.0 /2012 [facility] HEMATOLOGY MCHC 32.6 g/dL 32.0 - 07 Normal [facility] 36.0 /2012 [facility] HEMATOLOGY RDW 20.1 % 11.5 - 07/ [facility] 14.5 /2012 [facility] HEMATOLOGY Platelet 362 K/CMM 133 - 450 07 Normal [facility] HEMATOLOGY MCV 75.7 fL 81.0 - 07 [facility] 99.0 /2012 [facility] HEMATOLOGY Hgb 8.8 g/dL 12.0 - 03/07 [facility] 16.0 [facility] HEMATOLOGY Hct 26.9 % 36.0 - 03/07 [facility] 48.0 /2012 [facility] HEMATOLOGY RBC 3.56 M/CMM 4.20 - 03/07 [facility] 5.40 /2012 [facility] HEMATOLOGY WBC 11.1 K/CMM 3.7 - 10.4 03/07 [facility] HEMATOLOGY Lymphocytes # 2.4 K/CMM 1.0 - 5.5 03/07 Normal [facility] HEMATOLOGY Hypochrom Slight None Seen 03/07 Normal [facility] (03/07/2013 07:43:59) Center HEMATOLOGY Microcyte 2+ None Seen 03/07 [facility] *ABN* [facility] (03/07/2013 07:43:59) HEMATOLOGY Anisocyte 1+ None Seen 03/07 [facility] *ABN* [facility] (03/07/2013 07:43:59) HEMATOLOGY Basophils # 0.1 K/CMM 0.0 - 0.2 03/07 Normal [facility] HEMATOLOGY Polychrom Slight None Seen 03/07 [facility] (03/07/2013 07:43:59) Center HEMATOLOGY Basophils 0.8 % 0.0 - 1.0 03/07 Normal [facility] HEMATOLOGY Eosinophils 1.3 % 0.0 - 4.0 03/07 Normal [facility] HEMATOLOGY Segs-Bands # 7.6 K/CMM 1.5 - 8.1 07/02 Normal [facility] HEMATOLOGY Monocytes 8.1 % 2.0 - 12.0 03/07 Normal [facility] HEMATOLOGY Monocytes # 0.9 K/CMM 0.0 - 0.8 / HI [facility] HEMATOLOGY Eosinophils # 0.1 K/CMM 0.0 - 0.5 03/07 Normal [facility] HEMATOLOGY Target Cell Slight None Seen 03/07 ABN Medical *ABN* Center (03/07/2013 07:43:59) HEMATOLOGY Plt Morph Normal 03/07 Normal [facility] (03/07/2013 07:43:59) Center HEMATOLOGY Lymphocytes 22.0 % 20.0 - 07 [facility] 40.0 [facility] HEMATOLOGY Segs 67.8 % 45.0 - 07 Normal [facility] 75.0 [facility] CHEMISTRY Lactic Acid 1.7 mMol/L 0.5 - 2.2 03/07 Normal [facility] Lvl [facility] CHEMISTRY Total CK 21 unit/L 12 - 191 03/07 Normal [facility] CHEMISTRY Troponin-I null 0.00 - 07 Normal [facility] 0.40 /2012 [facility] CHEMISTRY eGFR 104 03/07 NA 6Result Comment: The eGFR is calculated using the CKD-EPI formula. In most young, healthy individuals the eGFR will be > 90 mL/min/1.73m2. The eGFR declines with age. An eGFR of 60-89 may be normal in [facility] mL/min/1.7 some populations, particularly the elderly, for whom the CKD-EPI formula has not been extensively validated. Use of the eGFR is not recommended in the following populations: [address] Individuals with unstable creatinine concentrations, including [...] 27 meq/L 24 - 32 07/ Normal [facility] CHEMISTRY Potassium Lvl 3.6 meq/L 3.5 - 5.1 03/07 Normal [facility] CHEMISTRY Chloride Lvl 99 meq/L 95 - 109 03/07 Normal [facility] CHEMISTRY Sodium Lvl 134 meq/L 135 - 145 03/07 LOW [facility] CHEMISTRY BUN 5 mg/dL 7 - 22 03/07 LOW [facility] CHEMISTRY Creatinine 0.7 mg/dL 0.5 - 1.4 03/07 Normal [facility] Lvl [facility] CHEMISTRY Glucose Lvl 233 mg/dL 70 - 99 03/07 HI 9Interpretive Data: Adult reference range values reflect the clinical guidelines of the [place] [employer]. [facility] CHEMISTRY Calcium Lvl 7.7 mg/dL 8.5 - 10.5 03/07 LOW [facility] CHEMISTRY AGAP 11.6 meq/L 10.0 - 07 Normal [facility] 20.0 [facility] CHEMISTRY Temp Art 37.0 Abby 03/07 NA [facility] CHEMISTRY pH Art 7.41 7.35 - 03/07 Normal [facility] 7.45 [facility] CHEMISTRY pCO2 Art 34 mm[Hg] 35 - 45 03/07 LOW [facility] CHEMISTRY O2 Sat Art 97.5 % 95.0 - 03/07 Normal [facility] 100.0 [facility] CHEMISTRY HCO3 Art 22 mMol/L 22 - 26 03/07 Normal [facility] CHEMISTRY BE Art -2 mMol/L -2-2 - 2 03/07 Normal [facility] CHEMISTRY pO2 Art 96 mm[Hg] 80 - 100 03/07 Normal [facility] Chest 1view Chest 1view EXAM: CHEST 1 VIEW 03/07 - - Medical This report was dictated by a Heating Technician/Fellow. I have personally reviewed the images as [...] CHEMISTRY Temp Mark 37.0 Abby 07 NA [facility] CHEMISTRY pO2 Mark 20 mm[Hg] 20 - 49 03/07 Normal [facility] CHEMISTRY HCO3 Mark 21 mMol/L 22 - 26 03/07 LOW [facility] CHEMISTRY BE Mark -2 mMol/L -2-2 - 2 03/07 Normal [facility] CHEMISTRY O2 Sat Mark 36.2 % 40.0 - 03/07 [facility] 70.0 [facility] CHEMISTRY pCO2 Mark 29 mm[Hg] 38 - 52 03/07 LOW [facility] CHEMISTRY pH Mark 7.46 7.28 - 03/07 [facility] 7.42 [facility] CHEMISTRY Lactic Acid 2.6 mMol/L 0.5 - 2.2 03/07 HI [facility] Lvl [facility] CHEMISTRY Phosphorus 3.1 mg/dL 2.5 - 4.5 03/07 Normal [facility] CHEMISTRY Magnesium Lvl 1.6 mg/dL 1.8 - 2.4 03/07 LOW [facility] CHEMISTRY Total CK 31 unit/L 12 - 191 03/07 Normal [facility] CHEMISTRY Troponin-I null 0.00 - 03/07 Normal [facility] 0.40 [facility] CHEMISTRY U Preg Negative Negative 03/06 Normal [facility] (03/06/2013 18:25:00) Center URINALYSIS UA Amorph Occasional /HPF None Seen 03/06 [facility] *ABN* [facility] (03/06/2013 18:25:00) URINALYSIS UA Mucus Few /LPF None Seen 03/06 Normal [facility] (03/06/2013 18:25:00) Center URINALYSIS Micro? Performed 03/06 Normal [facility] (03/06/2013 18:25:00) Center URINALYSIS UA Sq Epi Moderate /LPF Few 03/06 [facility] Medical *ABN* Center (03/06/2013 18:25:00) URINALYSIS UA WBC 0-2 /HPF None Seen 03/06 Normal [facility] (03/06/2013 18:25:00) Center URINALYSIS UA RBC None Seen 0 - 2 03/06 Normal [facility] (03/06/2013 18:25:00) Center URINALYSIS UA Bacteria Few /HPF None Seen 03/06 Normal [facility] (03/06/2013 18:25:00) Center URINALYSIS UA Bili Negative Negative 03/06 NA Medical *NA* [facility] (03/06/2013 18:25:00) URINALYSIS UA 0.2 EU/dL 0.1 - 1.0 03/06 Normal [facility] Urobilinogen /2012 [facility] URINALYSIS UA Nitrite Negative Negative 03/06 Normal [facility] (03/06/2013 18:25:00) Center URINALYSIS UA Leuk Est Trace Negative 03/06 [facility] *ABN* [facility] (03/06/2013 18:25:00) URINALYSIS UA Blood Negative Negative 03/06 Normal [facility] (03/06/2013 18:25:00) Center URINALYSIS UA Ketones 40 mg/dL Negative 03/06 [facility] Medical *ABN* [facility] (03/06/2013 18:25:00) URINALYSIS UA Turbidity Clear Clear 03/06 Normal [facility] (03/06/2013 18:25:00) [facility] URINALYSIS UA Color Yellow Yellow 03/06 NA [facility] *NA* [facility] (03/06/2013 18:25:00) URINALYSIS UA Spec Grav 1.015 <=1.030 03/06 Normal [facility] URINALYSIS UA Protein Negative Negative 03/06 Normal [facility] (03/06/2013 18:25:00) Center URINALYSIS UA Glucose 250 mg/dL Negative 03/06 [facility] *ABN* [facility] (03/06/2013 18:25:00) URINALYSIS UA pH 7.5 5.0 - 8.0 03/06 Normal [facility] Chest 2 Chest 2 views EXAM: CHEST 2 VIEWS 03/06 - [facility] - Medical This report was dictated by a Heating Technician/Fellow. I have personally reviewed the images as [...] left pleural effusion. BEDSIDE Comment1 Notify 12/07 [facility] Fei GLUCOSE MARTÍNEZ/ [facility] TESTING Center BEDSIDE Gluc POC 64 mg/dL 70 - 99 12/07 LOW 3Interpretive [facility] Reportable Limit: 200 mg/dL. BEDSIDE Gluc POC 50 mg/dL 70 - 99 12/07 LOW 4Interpretive [facility] GLUCOSE [facility] Data: [facility] Upper Reportable Limit: 200 mg/dL. BEDSIDE Comment1 Notify 12/07 [facility] Fei GLUCOSE MARTÍNEZ/ /2012 [facility] BEDSIDE Gluc POC 45 mg/dL 70 - 99 12/07 LOW 5Interpretive [facility] [place] [facility] Reportable Limit: 200 mg/dL. BEDSIDE Comment1 Notify 12/07 [facility] Fei ROACH RN/ /2012 [facility] CHEMISTRY eGFR 109 12/07 NA 7Result Comment: The eGFR is calculated using the CKD-EPI formula. In most young, healthy individuals the eGFR will be > 90 mL/min/1.73m2. The eGFR declines with age. An eGFR of 60-89 may be normal in [facility] mL/min/1.7 /2012 some populations, particularly the elderly, for whom the CKD-EPI formula has not been extensively validated. Use of the eGFR is not recommended in the following populations: [address] Center Individuals with unstable creatinine concentrations, [...] 8.3 mg/dL 8.5 - 10.5 12/07 LOW [facility] CHEMISTRY AGAP 12.8 meq/L 10.0 - 12/07 Normal [facility] 20.0 [facility] CHEMISTRY BUN 2 mg/dL 7 - 22 12/07 LOW [facility] CHEMISTRY Glucose Lvl 95 mg/dL 70 - 99 12/07 Normal 10Interpretive Data: Adult reference range values reflect the clinical guidelines of the [place] [employer]. [facility] Center CHEMISTRY Potassium Lvl 3.8 meq/L 3.5 - 5.1 12/07 Normal [facility] CHEMISTRY Creatinine 0.6 mg/dL 0.5 - 1.4 12/07 Normal [facility] CHEMISTRY Sodium Lvl 140 meq/L 135 - 145 12/07 Normal [facility] CHEMISTRY Chloride Lvl 105 meq/L 95 - 109 12/07 Normal [facility] CHEMISTRY CO2 26 meq/L 24 - 32 12/07 Normal [facility] BEDSIDE Comment2 Verify 12/06 NA [facility] GLUCOSE Lab [facility] BEDSIDE Comment2 Verify 12/06 NA [facility] GLUCOSE /Lab [facility] TESTING [facility] CHEMISTRY AGAP 13.5 meq/L 10.0 - 12/06 Normal [facility] .0 [facility] CHEMISTRY Calcium Lvl 8.1 mg/dL 8.5 - 10.5 12/06 LOW [facility] CHEMISTRY CO2 28 meq/L 24 - 32 12/06 Normal [facility] CHEMISTRY Chloride Lvl 101 meq/L 95 - 109 12/06 Normal [facility] CHEMISTRY eGFR 104 04 NA 8Result Comment: The eGFR is calculated using the CKD-EPI formula. In most young, healthy individuals the eGFR will be > 90 mL/min/1.73m2. The eGFR declines with age. An eGFR of 60-89 may be normal in [facility] mL/min/1.7 some populations, particularly the elderly, for whom the CKD-EPI formula has not been extensively validated. Use of the eGFR is not recommended in the following populations: [address] Individuals with unstable creatinine concentrations, including [...] reference range values reflect the clinical guidelines [facility] of the [place] [employer]. [facility] CHEMISTRY BUN 2 mg/dL 7 - 22 04 LOW [facility]2012 [facility] CHEMISTRY Creatinine 0.7 mg/dL 0.5 - 1.4 / Normal [facility]2012 [facility] CHEMISTRY Sodium Lvl 139 meq/L 135 - 145 / Normal [facility]2012 [facility] CHEMISTRY Potassium Lvl 3.5 meq/L 3.5 - 5.1 12/06 Normal [facility]2012 [facility] CHEMISTRY Lipase Lvl 62 unit/L 73 - 393 04/ LOW [facility]2012 [facility] CHEMISTRY Alk Phos 92 unit/L 39 - 136 04/ Normal [facility]2012 [facility] CHEMISTRY Albumin Lvl 2.7 g/dL 3.5 - 5.0 / [facility]2012 [facility] CHEMISTRY Total Protein 5.8 g/dL 6.4 - 8.4 / LOW [facility]2012 [facility] CHEMISTRY Globulin 3.1 g/dL 2.0 - 4.0 / Normal [facility]2012 [facility] CHEMISTRY A/G Ratio 0.9 0.7 - 1.6 / Normal [facility]2012 [facility] CHEMISTRY AST 74 unit/L 0 - 37 04/ HI [facility] CHEMISTRY ALT 50 unit/L 0 - 65 / Normal [facility]2012 [facility] CHEMISTRY Bili Indirect 0.1 mg/dL 0.0 - 1.0 / Normal [facility]2012 [facility] CHEMISTRY Bili Total 0.2 mg/dL 0.2 - 1.3 / Normal [facility]2012 [facility] CHEMISTRY Bili Direct 0.1 mg/dL 0.0 - 0.3 12/06 Normal [facility]2012 [facility] CHEMISTRY eGFR 109 12/05 NA 9Result Comment: The eGFR is calculated using the CKD-EPI formula. In most young, healthy individuals the eGFR will be > 90 mL/min/1.73m2. The eGFR declines with age. An eGFR of 60-89 may be normal in [facility] mL/min/1.7 some populations, particularly the elderly, for whom the CKD-EPI formula has not been extensively validated. Use of the eGFR is not recommended in the following populations: Medical [facility] Individuals with unstable creatinine concentrations, including [...] values reflect the clinical guidelines of the [place] [employer]. [facility] CHEMISTRY Creatinine 0.6 mg/dL 0.5 - 1.4 12/05 Normal [facility] Lvl [facility] CHEMISTRY BUN 1 mg/dL 7 - 22 12/05 LOW [facility] CHEMISTRY Chloride Lvl 102 meq/L 95 - 109 12/05 Normal [facility] CHEMISTRY Potassium Lvl 3.3 meq/L 3.5 - 5.1 12/05 LOW [facility] CHEMISTRY Sodium Lvl 140 meq/L 135 - 145 12/05 Normal [facility] CHEMISTRY Calcium Lvl 7.9 mg/dL 8.5 - 10.5 12/05 LOW [facility] CHEMISTRY CO2 29 meq/L 24 - 32 12/05 Normal [facility] CHEMISTRY AGAP 12.3 meq/L 10.0 - 12/05 Normal [facility] 20.0 [facility] CHEMISTRY Ca Norm mgdL 4.84 mg/dL 4.65 - 12/03 Normal [facility] 5. [facility] CHEMISTRY Ca Ion mgdL 4.84 mg/dL 4.65 - 12/03 Normal [facility] 5. [facility] CHEMISTRY Ca Ion 1.21 1.16 - 12/03 Normal [facility] mMol/L 1.30 [facility] CHEMISTRY Ca Norm 1.21 1.16 - 12/03 Normal [facility] mMol/L 1. [facility] CHEMISTRY Magnesium Lvl 1.8 mg/dL 1.8 - 2.4 12/03 Normal [facility] CHEMISTRY Phosphorus 3.4 mg/dL 2.5 - 4.5 12/03 Normal [facility] HEMATOLOGY Lymphocytes # 1.8 K/CMM 1.0 - 5.5 12/03 Normal [facility] HEMATOLOGY Lymphocytes 23.6 % 20.0 - 12/03 Normal [place] 40.0 [facility] HEMATOLOGY Eosinophils 2.9 % 0.0 - 4.0 12/03 Normal [facility] HEMATOLOGY Monocytes 9.1 % 2.0 - 12.0 12/03 Normal [facility] HEMATOLOGY Basophils 0.6 % 0.0 - 1.0 12/03 Normal [facility] HEMATOLOGY Segs-Bands # 5.0 K/CMM 1.5 - 8.1 12/03 Normal [facility] HEMATOLOGY Segs 63.8 % 45.0 - 12/03 Normal [place] 75.0 [facility] HEMATOLOGY Monocytes # 0.7 K/CMM 0.0 - 0.8 12/03 Normal [facility] HEMATOLOGY Eosinophils # 0.2 K/CMM 0.0 - 0.5 12/03 Normal [facility] HEMATOLOGY Microcyte 1+ None Seen 12/03 ABN [facility] *ABN* Center (12/03/2012 01:02:00) HEMATOLOGY WBC 7.8 K/CMM 3.7 - 10.4 12/03 Normal [facility] HEMATOLOGY Hct 27.8 % 36.0 - 12/03 LOW [place] 48.0 [facility] HEMATOLOGY MPV 8.5 fL 7.4 - 10.4 12/03 Normal [facility] HEMATOLOGY MCHC 32.4 g/dL 32.0 - 12/03 Normal [facility] 36.0 [facility] HEMATOLOGY RDW 18.9 % 11.5 - 12/03 HI [place] 14.5 [facility] HEMATOLOGY MCH 24.6 pg 27.0 - 12/03 LOW [place] 31.0 [facility] HEMATOLOGY RBC 3.66 M/CMM 4.20 - 12/03 LOW [place] 5.40 [facility] HEMATOLOGY MCV 75.9 fL 81.0 - 12/03 LOW [facility] 99.0 [facility] HEMATOLOGY Platelet 224 K/CMM 133 - 450 12/03 Normal [facility] HEMATOLOGY Hgb 9.0 g/dL 12.0 - 12/03 LOW [facility] 16.0 [facility] Microbiolog Culture: 12/02 [facility] y Blood /2012 [facility] Center Microbiolog Culture: MRSA 12/02 [facility] y /2012 Medical Center Microbiolog Culture: 12/02 [facility] y Resistant Medical Acinetobacter Center Screen CHEMISTRY Ketone 1.42 <=0.27 12/02 HI [facility] Quantitative mmol/L /2012 [facility] URINALYSIS UA WBC 1 /HPF 0 - 5 12/02 Normal [facility] URINALYSIS UA RBC null 0 - 2 12/02 Normal [facility] URINALYSIS UA <=1.0 0.1 - 1.0 12/02 NA [facility] Urobilinogen mg/dL Medical
*NA*< Center br/>(12/02 04:02:55) <sup> </sup> URINALYSIS UA Sq Epi Moderate /LPF Few 12/02 ABN Medical *ABN* Center (12/02/2012 04:02:55) URINALYSIS UA Leuk Est Negative Negative 12/02 Normal [facility] (12/02/2012 04:02:55) Center URINALYSIS UA Nitrite Negative Negative 12/02 Normal [facility] (12/02/2012 04:02:55) Center URINALYSIS UA Mucus Few /LPF None Seen 12/02 NA Medical *NA* Center (12/02/2012 04:02:55) URINALYSIS UA Ketones 40 mg/dL Negative 12/02 ABN [facility] *ABN* Center (12/02/2012 04:02:55) URINALYSIS UA Blood Negative Negative 12/02 Normal [facility] (12/02/2012 04:02:55) Center URINALYSIS UA Glucose >=1000 mg/dL Negative 12/02 ABN [facility] *ABN* Center (12/02/2012 04:02:55) URINALYSIS UA Bili Negative Negative 12/02 NA Medical *NA* Center (12/02/2012 04:02:55) URINALYSIS UA Protein Negative mg/dL Negative 12/02 Normal [facility] (12/02/2012 04:02:55) Center URINALYSIS UA Turbidity Clear Clear 12/02 Normal [facility] (12/02/2012 04:02:55) Center URINALYSIS UA pH 5.5 5.0 - 8.0 12/02 Normal [facility] URINALYSIS UA Spec Grav 1.010 <=1.030 12/02 Normal [facility] URINALYSIS UA Color Yellow Yellow 12/02 NA [facility] *NA* Center (12/02/2012 04:02:55) HEMATOLOGY MPV 8.9 fL 7.4 - 10.4 12/02 Normal [facility] HEMATOLOGY Hct 27.9 % 36.0 - 12/02 [facility] 48.0 [facility] HEMATOLOGY MCV 76.1 fL 81.0 - 12/02 [facility] 99.0 [facility] HEMATOLOGY MCH 25.2 pg 27.0 - 12/02 LOW [facility] 31.0 [facility] HEMATOLOGY MCHC 33.2 g/dL 32.0 - 12/02 Normal [facility] 36.0 [facility] HEMATOLOGY RDW 19.3 % 11.5 - 12/02 HI [facility] 14.5 [facility] HEMATOLOGY Platelet 224 K/CMM 133 - 450 12/02 Normal [facility] HEMATOLOGY WBC 8.6 K/CMM 3.7 - 10.4 12/02 Normal [facility] HEMATOLOGY Hgb 9.3 g/dL 12.0 - 12/02 [facility] 16.0 [facility] HEMATOLOGY RBC 3.67 M/CMM 4.20 - 12/02 [facility] 5.40 /2012 [facility] HEMATOLOGY Segs-Bands # 6.4 K/CMM 1.5 - 8.1 12/02 Normal [facility] HEMATOLOGY Lymphocytes # 1.5 K/CMM 1.0 - 5.5 12/02 Normal [facility] HEMATOLOGY Eosinophils 0.6 % 0.0 - 4.0 12/02 Normal [facility] HEMATOLOGY Basophils 0.7 % 0.0 - 1.0 12/02 Normal [facility] HEMATOLOGY Lymphocytes 17.3 % 20.0 - 12/02 LOW [facility] 40.0 [facility] HEMATOLOGY Monocytes # 0.7 K/CMM 0.0 - 0.8 12/02 Normal [facility] HEMATOLOGY Microcyte 1+ None Seen 12/02 ABN [facility] *ABN* Center (12/02/2012 04:02:51) HEMATOLOGY Eosinophils # 0.1 K/CMM 0.0 - 0.5 12/02 Normal [facility] HEMATOLOGY Basophils # 0.1 K/CMM 0.0 - 0.2 12/02 Normal [facility] HEMATOLOGY Segs 73.8 % 45.0 - 12/02 Normal [facility] 75.0 [facility] HEMATOLOGY Monocytes 7.6 % 2.0 - 12.0 12/02 Normal [facility] Microbiolog Culture: 12/02 [facility] y [facility] CHEMISTRY POC A Glu 305 mg/dL 70 - 99 12/02 HI [facility] CHEMISTRY POC A Hct 29.0 % 36.0 - 12/02 LOW [facility] 48.0 [facility] CHEMISTRY POC A O2 Sat 97.0 % 95.0 - 12/02 Normal [facility] 100.0 [facility] CHEMISTRY POC A K 3.4 meq/L 3.5 - 5.1 12/02 LOW [facility] CHEMISTRY POC A Na 130 meq/L 135 - 145 12/02 LOW [facility] CHEMISTRY POC A PCO2 38 mm[Hg] 35 - 45 12/02 Normal [facility] CHEMISTRY POC A BE 2 mMol/L -2-2 - 2 12/02 Normal [facility] CHEMISTRY POC A HCO3 26 mMol/L 22 - 26 12/02 Normal [facility] CHEMISTRY POC A Source ART 12/02 NA [facility] CHEMISTRY POC A PO2 89 mm[Hg] 80 - 100 12/02 Normal [facility] CHEMISTRY POC A pH 7.44 7.35 - 12/02 Normal [facility] 7.45 [facility] CHEMISTRY POC A Temp 37.0 Abby 12/02 NA [facility] CHEMISTRY POC A Ca Ion 1.12 1.16 - 12/02 LOW [facility] mMol/L 1.30 [facility] CHEMISTRY POC A LA 0.8 mMol/L 0.5 - 2.2 12/02 Normal [facility] CHEMISTRY Magnesium Lvl 1.9 mg/dL 1.8 - 2.4 12/02 Normal [facility] CHEMISTRY Phosphorus 2.7 mg/dL 2.5 - 4.5 12/02 Normal [facility] CHEMISTRY Ca Norm mgdL 4.36 mg/dL 4.65 - 12/02 LOW [facility] 5. [facility] CHEMISTRY Ca Ion 1.14 1.16 - 12/02 LOW [place] mMol/L 1. [facility] CHEMISTRY Ca Ion mgdL 4.56 mg/dL 4.65 - 12/02 LOW [facility] 5. [facility] CHEMISTRY Ca Norm 1.09 1.16 - 12/02 LOW [facility] mMol/L 1. [facility] HEMATOLOGY Platelet 223 K/CMM 133 - 450 12/02 Normal [facility] HEMATOLOGY MPV 9.2 fL 7.4 - 10.4 12/02 Normal [facility] HEMATOLOGY MCHC 32.3 g/dL 32.0 - 12/02 Normal [facility] 36.0 [facility] HEMATOLOGY RDW 19.2 % 11.5 - 12/02 HI [facility] 14.5 [facility] HEMATOLOGY WBC 7.6 K/CMM 3.7 - 10.4 12/02 Normal [facility] HEMATOLOGY Hgb 9.2 g/dL 12.0 - 12/02 [facility] 16.0 [facility] HEMATOLOGY Hct 28.6 % 36.0 - 12/02 [facility] 48.0 /2012 [facility] HEMATOLOGY MCV 76.3 fL 81.0 - 12/02 [facility] 99.0 [facility] HEMATOLOGY MCH 24.6 pg 27.0 - 12/02 [facility] 31.0 /2012 [facility] HEMATOLOGY RBC 3.74 M/CMM 4.20 - 12/02 [facility] 5.40 /2012 [facility] HEMATOLOGY Microcyte 1+ None Seen 12/02 ABN Medical *ABN* Center (12/02/2012 03:00:00) HEMATOLOGY Basophils # 0.1 K/CMM 0.0 - 0.2 12/02 Normal [facility] HEMATOLOGY Monocytes # 0.6 K/CMM 0.0 - 0.8 12/02 Normal [facility] HEMATOLOGY Lymphocytes # 1.9 K/CMM 1.0 - 5.5 12/02 Normal [facility] HEMATOLOGY Segs-Bands # 5.0 K/CMM 1.5 - 8.1 12/02 Normal [facility] HEMATOLOGY Segs 65.5 % 45.0 - 12/02 Normal [facility] 75.0 /2012 [facility] HEMATOLOGY Lymphocytes 25.0 % 20.0 - 12/02 Normal [facility] 40.0 /2012 [facility] HEMATOLOGY Monocytes 8.4 % 2.0 - 12.0 12/02 Normal [facility] HEMATOLOGY Eosinophils 0.4 % 0.0 - 4.0 12/02 Normal [facility] HEMATOLOGY Basophils 0.7 % 0.0 - 1.0 12/02 Normal [facility] CHEMISTRY Magnesium Lvl 2.0 mg/dL 1.8 - 2.4 12/01 Normal [facility] CHEMISTRY Ca Norm mgdL 4.48 mg/dL 4.65 - 12/01 LOW [facility] 5. [facility] CHEMISTRY Ca Ion mgdL 4.68 mg/dL 4.65 - 12/01 Normal [facility] 5. [facility] CHEMISTRY Ca Ion 1.17 1.16 - 12/01 Normal [facility] mMol/L 1. [facility] CHEMISTRY Ca Norm 1.12 1.16 - 12/01 LOW [facility] mMol/L 1. [facility] CHEMISTRY Phosphorus 2.7 mg/dL 2.5 - 4.5 12/01 Normal [facility] URINALYSIS UA <=1.0 0.1 - 1.0 11/30 NA [facility] Urobilinogen mg/dL /2012 Medical
*NA*< Center br/>(11/30 17:41:33) <sup> </sup> URINALYSIS UA Mucus Few /LPF None Seen 11/30 NA Medical *NA* Center (11/30/2012 17:41:33) URINALYSIS UA WBC null 0 - 5 11/30 Normal [facility] URINALYSIS UA Sq Epi Moderate /LPF Few 11/30 ABN Medical *ABN* Center (11/30/2012 17:41:33) URINALYSIS UA Protein Negative mg/dL Negative 11/30 Normal Medical (11/30/2012 17:41:33) Center URINALYSIS UA pH 5.0 5.0 - 8.0 11/30 Normal [facility] Center URINALYSIS UA Spec Grav 1.004 <=1.030 11/30 Normal [facility] Center URINALYSIS UA Turbidity Clear Clear 11/30 Normal [facility] (11/30/2012 17:41:33) Center URINALYSIS UA Color Light Yellow Yellow 11/30 NA Medical *NA* [facility] (11/30/2012 17:41:33) URINALYSIS UA Leuk Est Negative Negative 11/30 Normal [facility] (11/30/2012 17:41:33) Center URINALYSIS UA Nitrite Negative Negative 11/30 Normal [facility] (11/30/2012 17:41:33) Center URINALYSIS UA Blood Negative Negative 11/30 Normal [facility] (11/30/2012 17:41:33) Center URINALYSIS UA Bili Negative Negative 11/30 NA [facility] *NA* [facility] (11/30/2012 17:41:33) URINALYSIS UA Ketones 10 mg/dL Negative 11/30 ABN Medical *ABN* [facility] (11/30/2012 17:41:33) URINALYSIS UA Glucose Negative mg/dL Negative 11/30 NA [facility] *NA* [facility] (11/30/2012 17:41:33) CHEMISTRY Ketone 1.65 <=0.27 11/30 HI [facility] Quantitative mmol/L /2012 [facility] HEMATOLOGY PT 14.1 s 12.0 - 11/30 Normal [facility] 14.7 [facility] HEMATOLOGY PTT 28.1 s 22.9 - 11/30 Normal 18Interpretiv [facility] 35.8 /2013 e Data: [facility] Heparin Center Therapeutic Range: 57 - 92 Seconds HEMATOLOGY INR 1.07 0.85 - 11/30 Normal 16Interpretive Data: RECOMMENDED RANGES FOR PROTIME INR: [facility] . 2.0-3.0 for most medical and surgical thromboembolic states. Medical 2.5-3.5 for artificial heart valves and recurrent embolism. Center INR SHOULD BE USED ONLY FOR PATIENTS ON STABLE ANTICOAGULANT THERAPY. CHEMISTRY U Potassium 31.2 meq/L 11/30 NA 14Interpretiv e Data: No Medical established Center reference ranges. CHEMISTRY U Sodium 87 meq/L 11/30 NA 13Interpretiv e Data: No [facility] established Center reference ranges. CHEMISTRY U Chloride 134 meq/L 11/30 NA [facility] CHEMISTRY Bili Total 0.4 mg/dL 0.2 - 1.3 11/30 Normal [facility] CHEMISTRY Total Protein 6.3 g/dL 6.4 - 8.4 11/30 LOW [facility] CHEMISTRY Albumin Lvl 2.9 g/dL 3.5 - 5.0 11/30 LOW [facility] CHEMISTRY Alk Phos 127 unit/L 39 - 136 11/30 Normal [facility] CHEMISTRY Bili Direct 0.2 mg/dL 0.0 - 0.3 11/30 Normal [facility] CHEMISTRY AST 22 unit/L 0 - 37 11/30 Normal [facility] CHEMISTRY ALT 20 unit/L 0 - 65 11/30 Normal [facility] CHEMISTRY A/G Ratio 0.9 0.7 - 1.6 11/30 Normal [facility] CHEMISTRY Bili Indirect 0.2 mg/dL 0.0 - 1.0 11/30 Normal [facility] CHEMISTRY Globulin 3.4 g/dL 2.0 - 4.0 11/30 Normal [facility] HEMATOLOGY Basophils # 0.1 K/CMM 0.0 - 0.2 11/30 Normal [facility] HEMATOLOGY PT 13.9 s 12.0 - 11/30 Normal [facility] 14.7 [facility] HEMATOLOGY PTT 26.5 s 22.9 - 11/30 Normal 19Interpretiv [facility] 35.8 /2012 e Data: [facility] Heparin Center Therapeutic Range: 57 - 92 Seconds HEMATOLOGY INR 1.05 0.85 - 11/30 Normal 17Interpretive Data: RECOMMENDED RANGES FOR PROTIME INR: [facility] . 2.0-3.0 for most medical and surgical thromboembolic states. Medical 2.5-3.5 for artificial heart valves and recurrent embolism. Center INR SHOULD BE USED ONLY FOR PATIENTS ON STABLE ANTICOAGULANT THERAPY. CHEMISTRY POC V Temp 37.0 Abby 11/29 NA [facility] CHEMISTRY POC V Ion Ca [...] Troponin-I 0.05 ng/mL 0.00 - 11/29 Normal [facility] 0.40 Medical Center CHEMISTRY Total CK 46 unit/L 12 - 191 11/29 Normal [facility] CHEMISTRY Troponin-T null 0.000 - 11/29 Normal [facility] 0.100 Medical Center CHEMISTRY Ketone 4.63 [...] CHEMISTRY POC A Source ART 11/29 NA [facility] CHEMISTRY POC A O2 Sat 98.0 % 95.0 - 11/29 Normal [facility] 100.0 [facility] CHEMISTRY POC A BE -11 mMol/L -2-2 - 2 11/29 LOW [facility] CHEMISTRY POC A HCO3 14 mMol/L 22 - 11/29 LOW [facility] CHEMISTRY POC A PCO2 26 mm[Hg] 35 - 45 11/29 CRIT [facility] CHEMISTRY POC A PO2 115 mm[Hg] 80 - 100 11/29 HI [facility] CHEMISTRY POC A pH 7.33 7.35 - 11/29 LOW [facility] 7.45 [facility] BACTERIAL - MRSA by PCR Positive 1, 2 11/29 ABN 2Interpretive Data: Interpretive Data: The [employer] Light[employer] MRSA assay is a qualitative test for the direct detection of nasal colonization with methicillin-resistant Staphylococcus aureus (MRSA) to aid [facility] in the prevention and control [...] the Molecular Diagnostic Laboratory within the [facility]. The Molecular Diagnostic Labor atory is authorized under the Clinical Laboratory Improvement Amendment of 1988 (CLIA-88) to perform high complexity testing. CHEMISTRY Temp Art 37.0 Abby 11/29 NA [facility] CHEMISTRY O2 Sat Art 96.6 % 95.0 - 11/29 Normal [facility] 100.0 [facility] CHEMISTRY pO2 Art 96 mm[Hg] 80 - 100 11/29 Normal [facility] CHEMISTRY pCO2 Art 25 mm[Hg] 35 - 45 11/29 CRIT 15Result Comment: [facility] Critical [facility] Result(s) called to jose rodriguez at _11/29/2012 12:25:56 CDT bykak_. Read back OK. CHEMISTRY BE Art -12 mMol/L -2-2 - 2 11/29 LOW [facility] CHEMISTRY HCO3 Art 12 mMol/L - 11/29 LOW [facility] CHEMISTRY pH Art 7.30 7.35 - 11/29 LOW [facility] 7.45 [facility] CHEMISTRY A/G Ratio 0.8 0.7 - 1.6 11/29 Normal [facility] CHEMISTRY Globulin 4.0 g/dL 2.0 - 4.0 11/29 Normal [facility] CHEMISTRY AST 17 unit/L 0 - 37 11/29 Normal [facility] CHEMISTRY Bili Total 0.8 mg/dL 0.2 - 1.3 11/29 Normal [facility] CHEMISTRY B/C Ratio 14 - 11/29 Normal [facility] CHEMISTRY Total Protein 7.4 g/dL 6.4 - 8.4 11/29 Normal [facility] CHEMISTRY ALT 22 unit/L 0 - 65 11/29 Normal [facility] CHEMISTRY Albumin Lvl 3.4 g/dL 3.5 - 5.0 11/29 LOW [facility] CHEMISTRY Alk Phos 126 unit/L 39 - 136 11/29 Normal [facility] CHEMISTRY Troponin-I null 0.00 - 11/29 Normal [facility] 0.40 [facility] CHEMISTRY Lipase Lvl 70 unit/L 73 - 393 11/29 LOW [facility] CHEMISTRY B/C Ratio 10 6 - 11/29 Normal [facility] HEMATOLOGY Hypochrom Slight None Seen 11/29 Normal [facility] (11/28/2012 21:00:20) Center HEMATOLOGY Polychrom Slight None Seen 11/29 Normal [facility] (11/28/2012 21:00:20) Center HEMATOLOGY Anisocyte 1+ None Seen 11/29 ABN Medical *ABN* Center (11/28/2012 21:00:20) HEMATOLOGY Large Plt Slight None Seen 11/29 [facility] Medical *ABN* Center (11/28/2012 21:00:20) HEMATOLOGY Eosinophils # 0.2 K/CMM 0.0 - 0.5 11/29 Normal [facility] CHEMISTRY U Preg Negative Negative 11/29 Normal [facility] (11/28/2012 20:55:00) Center URINALYSIS UA Blood Negative Negative 11/29 Normal [facility] (11/28/2012 20:55:00) [facility] URINALYSIS UA Bili Small 6 Negative 11/29 ABN 6Result Comment: Interpret positive bilirubin results with caution. Confirmatory testing not possible due to the unavailability of reagent. Correlation with Medical *ABN* serum chemistry results recommended. [facility] (11/28/2012 20:55:00) URINALYSIS UA Protein Negative Negative 11/29 Normal [facility] (11/28/2012 20:55:00) [facility] URINALYSIS Micro? Not Indicated 11/29 Normal [facility] (11/28/2012 20:55:00) [facility] URINALYSIS UA Glucose Negative Negative 11/29 Normal [facility] (11/28/2012 20:55:00) [facility] URINALYSIS UA Ketones 40 mg/dL Negative 11/29 ABN Medical *ABN* [facility] (11/28/2012 20:55:00) URINALYSIS UA Leuk Est Negative Negative 11/29 Normal [facility] (11/28/2012 20:55:00) [facility] URINALYSIS UA 0.2 EU/dL 0.1 - 1.0 11/29 Normal [facility] Urobilinogen /2012 [facility] URINALYSIS UA Nitrite Negative Negative 11/29 Normal [facility] (11/28/2012 20:55:00) [facility] URINALYSIS UA Spec Grav 1.010 <=1.030 11/29 Normal [facility] URINALYSIS UA pH 6.0 5.0 - 8.0 11/29 Normal [facility] URINALYSIS UA Color Yellow Yellow 11/29 NA Medical *NA* [facility] (11/28/2012 20:55:00) URINALYSIS UA Turbidity Clear Clear 11/29 Normal Medical (11/28/2012 20:55:00) Center BEDSIDE Comment1 Notify 11/17 NA [facility] GLUCOSE RN/ /2012 Medical TESTING Center BEDSIDE Gluc POC 219 mg/dL 70 - 99 11/17 HI 1Interpretive [facility] Medical TEST[facility] Center Upper Reportable Limit: 200 mg/dL. BEDSIDE Gluc POC 255 mg/dL 70 - 99 11/17 HI 2Interpretive [facility] GLUCOSE [facility] Data: Medical TESTING Center Upper Reportable Limit: 200 mg/dL. BEDSIDE Comment1 Notify 11/17 NA [facility] GLUCOSE RN/MD /2012 [facility] [place] CHEMISTRY Troponin-T null 0.000 - 11/17 Normal [facility] 0.100 [facility] CHEMISTRY Troponin-I null 0.00 - 11/17 Normal [facility] 0.40 [facility] CHEMISTRY Total CK 52 unit/L 12 - 191 11/17 Normal [facility] CHEMISTRY eGFR 109 11/17 NA 4Result Comment: The eGFR is calculated using the CKD-EPI formula. In most young, healthy individuals the eGFR will be > 90 mL/min/1.73m2. The eGFR declines with age. An eGFR of 60-89 may be normal in [facility] mL/min/1.7 some populations, particularly the elderly, for whom the CKD-EPI formula has not been extensively validated. Use of the eGFR is not recommended in the following populations: Medical [facility] Individuals with unstable creatinine concentrations, including [...] 7.7 mg/dL 8.5 - 10.5 11/17 LOW [facility] CHEMISTRY AGAP 16.2 meq/L 10.0 - 11/17 Normal [facility] 20.0 [facility] CHEMISTRY Chloride Lvl 100 meq/L 95 - 109 11/17 Normal [facility] CHEMISTRY Potassium Lvl 4.2 meq/L 3.5 - 5.1 11/17 Normal [facility] CHEMISTRY Sodium Lvl 134 meq/L 135 - 145 11/17 LOW [facility] CHEMISTRY CO2 22 meq/L 24 - 32 11/17 [facility] CHEMISTRY Creatinine 0.6 mg/dL 0.5 - 1.4 11/17 Normal [facility] CHEMISTRY BUN 4 mg/dL 7 - 22 11/17 [facility] CHEMISTRY Glucose Lvl 237 mg/dL 70 - 99 11/17 HI 6Interpretive Data: Adult reference range values reflect the clinical guidelines of the [place] [employer]. Medical Center CHEMISTRY Magnesium Lvl 1.4 mg/dL 1.8 - 2.4 11/17 LOW [facility] CHEMISTRY Phosphorus 3.4 mg/dL 2.5 - 4.5 11/17 Normal [facility] HEMATOLOGY Segs 60.3 % 45.0 - 11/17 Normal [facility] 75.0 [facility] HEMATOLOGY Monocytes 9.0 % 2.0 - 12.0 11/17 Normal [facility] HEMATOLOGY Lymphocytes 27.8 % 20.0 - 11/17 Normal [facility] 40.0 [facility] HEMATOLOGY Eosinophils 2.1 % 0.0 - 4.0 11/17 Normal [facility] HEMATOLOGY Lymphocytes # 2.3 K/CMM 1.0 - 5.5 11/17 Normal [facility] HEMATOLOGY Eosinophils # 0.2 K/CMM 0.0 - 0.5 11/17 Normal [facility] HEMATOLOGY Basophils 0.8 % 0.0 - 1.0 11/17 Normal [facility] HEMATOLOGY Segs-Bands # 5.1 K/CMM 1.5 - 8.1 11/17 Normal [facility] HEMATOLOGY Basophils # 0.1 K/CMM 0.0 - 0.2 11/17 Normal [facility] HEMATOLOGY Monocytes # 0.8 K/CMM 0.0 - 0.8 11/17 Normal [facility] HEMATOLOGY Microcyte 1+ None Seen 11/17 ABN Medical *ABN* Center (11/17/2012 04:33:00) HEMATOLOGY INR 1.09 0.85 - 11/17 Normal 8Interpretive Data: RECOMMENDED RANGES FOR PROTIME INR: [facility] . 2.0-3.0 for most medical and surgical thromboembolic states. Medical 2.5-3.5 for artificial heart valves and recurrent embolism. Center INR SHOULD BE USED ONLY FOR PATIENTS ON STABLE ANTICOAGULANT THERAPY. HEMATOLOGY PT 14.3 s 12.0 - 11/17 Normal [facility] 14.7 [facility] HEMATOLOGY PTT 31.8 s 22.9 - 11/17 Normal 9Interpretive [facility] 35.8 Data: [facility] Range: 57 - 92 Seconds HEMATOLOGY Platelet 177 K/CMM 133 - 450 11/17 Normal [facility] HEMATOLOGY MPV 9.5 fL 7.4 - 10.4 11/17 Normal [facility] HEMATOLOGY MCH 24.5 pg 27.0 - 11/17 LOW [facility] 31.0 /2012 [facility] HEMATOLOGY RDW 18.9 % 11.5 - 11/17 [place] 14.5 /2012 Medical Center HEMATOLOGY MCHC 32.3 g/dL 32.0 - 11/17 Normal [facility] 36.0 /2012 [facility] HEMATOLOGY MCV 75.9 fL 81.0 - 11/17 [facility] 99.0 /2012 Medical [facility] HEMATOLOGY RBC 3.67 M/CMM 4.20 - 11/17 [facility] 5.40 /2012 Medical Center HEMATOLOGY WBC 8.4 K/CMM 3.7 - 10.4 11/17 Normal [facility] HEMATOLOGY Hct 27.9 % 36.0 - 11/17 [facility] 48.0 /2012 [facility] HEMATOLOGY Hgb 9.0 g/dL 12.0 - 11/17 [facility] 16.0 [facility] CHEMISTRY Troponin-T null 0.000 - 11/17 Normal [facility] [facility] 0.100 [facility] CHEMISTRY Troponin-I null 0.00 - 11/17 Normal [facility] 0.40 [facility] CHEMISTRY Total CK 76 unit/L 11/17 Normal [facility] CHEMISTRY CK MB Index 0.8 0.0 - 2.5 11/17 Normal [facility] CHEMISTRY CK MB 0.6 ng/mL 0.5 - 3.6 11/17 Normal [facility] BEDSIDE Gluc POC 305 mg/dL 70 - 99 11/17 MD 3Interpretive [facility] GLUCOSE Lifscn Data: [facility] Upper Reportable Limit: 200 mg/dL. BEDSIDE Comment1 Notify 11/17 NA [facility] GLUCOSE RN/MD /2012 [facility] CHEMISTRY Magnesium Lvl 1.4 mg/dL 1.8 - 2.4 11/16 LOW [facility] CHEMISTRY Total CK 27 unit/L 11/16 Normal [facility] CHEMISTRY Troponin-T null 0.000 - 11/16 Normal [facility] 0.100 [facility] CHEMISTRY Troponin-I null 0.00 - 11/16 Normal [facility] 0.40 [facility] CHEMISTRY B/C Ratio 6 6 - 25 11/16 Normal [facility] CHEMISTRY A/G Ratio 1.0 0.7 - 1.6 11/16 Normal [facility] CHEMISTRY AGAP 18.6 meq/L 10.0 - 11/16 Normal [facility] 20.0 [facility] CHEMISTRY Globulin 3.5 g/dL 2.0 - 4.0 11/16 Normal [facility] CHEMISTRY eGFR 67 11/16 NA 5Result Comment: The eGFR is calculated using the CKD-EPI formula. In most young, healthy individuals the eGFR will be > 90 mL/min/1.73m2. The eGFR declines with age. An eGFR of 60-89 may be normal in [facility] mL/min/1.7 some populations, particularly the elderly, for whom the CKD-EPI formula has not been extensively validated. Use of the eGFR is not recommended in the following populations: [address] Individuals with unstable creatinine concentrations, including [...] 3.4 g/dL 3.5 - 5.0 11/16 LOW [facility] CHEMISTRY Alk Phos 88 unit/L 39 - 136 11/16 Normal [facility] CHEMISTRY Glucose Lvl 256 mg/dL 70 - 99 11/16 HI 7Interpretive Data: Adult reference range values reflect the clinical guidelines of the [place] [employer]. [facility] CHEMISTRY BUN 6 mg/dL 7 - 22 11/16 LOW [facility] CHEMISTRY Sodium Lvl 136 meq/L 135 - 145 11/16 Normal [facility] CHEMISTRY Chloride Lvl 99 meq/L 95 - 109 11/16 Normal [facility] CHEMISTRY Creatinine 1.0 mg/dL 0.5 - 1.4 11/16 Normal [facility] CHEMISTRY Potassium Lvl 3.6 meq/L 3.5 - 5.1 11/16 Normal [facility] CHEMISTRY CO2 22 meq/L 24 - 32 11/16 LOW [facility] CHEMISTRY Calcium Lvl 8.8 mg/dL 8.5 - 10.5 11/16 Normal [facility] CHEMISTRY Bili Total 0.6 mg/dL 0.2 - 1.3 11/16 Normal [facility] CHEMISTRY Total Protein 6.9 g/dL 6.4 - 8.4 11/16 Normal [facility] CHEMISTRY AST 52 unit/L 0 - 37 11/16 HI [facility] CHEMISTRY ALT 52 unit/L 0 - 65 11/16 Normal [facility] CHEMISTRY Phosphorus 1.6 mg/dL 2.5 - 4.5 11/16 LOW [facility] HEMATOLOGY Lymphocytes 16.8 % 20.0 - 11/16 LOW [facility] 40.0 [facility] HEMATOLOGY Segs 72.3 % 45.0 - 11/16 Normal [facility] 75. [facility] HEMATOLOGY Large Plt Slight None Seen 11/16 [facility] (11/16/2012 13:17:00) HEMATOLOGY Elliptocyte Slight None Seen 11/16 [facility] (11/16/2012 13:17:00) HEMATOLOGY Polychrom Slight None Seen 11/16 Normal [facility] (11/16/2012 13:17:00) Center HEMATOLOGY Microcyte 1+ None Seen 11/16 [facility] (11/16/2012 13:17:00) HEMATOLOGY Basophils # 0.1 K/CMM 0.0 - 0.2 11/16 Normal [facility] HEMATOLOGY Hypochrom Slight None Seen 11/16 [facility] (11/16/2012 13:17:00) Center HEMATOLOGY Anisocyte 1+ None Seen 11/16 [facility] (11/16/2012 13:17:00) HEMATOLOGY Schistocyte Occasional 11/16 NA [facility] HEMATOLOGY Monocytes 8.6 % 2.0 - 12.0 11/16 Normal [facility] HEMATOLOGY Eosinophils 1.5 % 0.0 - 4.0 11/16 Normal [facility] HEMATOLOGY Monocytes # 1.1 K/CMM 0.0 - 0.8 11/16 HI [facility] HEMATOLOGY Segs-Bands # 9.7 K/CMM 1.5 - 8.1 11/16 [facility] Medical Center HEMATOLOGY Eosinophils # 0.2 [...] HEMATOLOGY RDW 18.0 % 11.5 - 11/16 [facility] 14.5 /2012 Medical Center HEMATOLOGY Hct 32.4 % 36.0 - 11/16 LOW [facility] 48.0 /2012 Medical Center HEMATOLOGY MCHC 33.3 g/dL 32.0 - 11/16 Normal [facility] 36.0 /2012 Medical Center HEMATOLOGY MCV 75.4 fL 81.0 - 11/16 LOW [facility] 99.0 /2012 Medical Center HEMATOLOGY MCH 25.1 pg 27.0 - 11/16 [facility] 31.0 /2012 Medical Center HEMATOLOGY Platelet 230 K/CMM 133 - 450 11/16 Normal [facility] HEMATOLOGY MPV 9.9 fL 7.4 - 10.4 11/16 Normal [facility] BEDSIDE Comment1 Notify 11/14 NA Fei GLUCOSE MARTÍNEZ/ /2012 [facility] BEDSIDE Gluc POC 266 mg/dL 11/14 HI 2Interpretive [facility] GLUCOSE Lifsc Data: [facility] Upper Reportable Limit: 200 mg/dL. BEDSIDE Comment1 Notify 11/14 NA [facility] GLUCOSE MARTÍNEZ/ /2012 [facility] BEDSIDE Gluc POC 140 mg/dL - 11/14 HI 3Interpretive [facility] GLUCOSE Lifsc Data: [facility] Upper Reportable Limit: 200 mg/dL. BEDSIDE Comment1 Notify 11/14 NA [facility] GLUCOSE MARTÍNEZ/ /2012 [facility] BEDSIDE Gluc POC 201 mg/dL 70 - 11/14 HI 4Interpretive [facility] GLUCOSE Lifsc Data: [facility] Upper Reportable Limit: 200 mg/dL. CHEMISTRY A/G Ratio 0.9 0.7 - 1.6 11/14 Normal [facility] CHEMISTRY AST 41 unit/L 0 - 37 11/14 HI [facility] CHEMISTRY eGFR 104 11/14 NA 6Result Comment: The eGFR is calculated using the CKD-EPI formula. In most young, healthy individuals the eGFR will be > 90 mL/min/1.73m2. The eGFR declines with age. An eGFR of 60-89 may be normal in [facility] mL/min/1.7 /2012 some populations, particularly the elderly, for whom the CKD-EPI formula has not been extensively validated. Use of the eGFR is not recommended in the following populations: [address] Individuals with unstable creatinine concentrations, including [...] 2.9 g/dL 3.5 - 5.0 11/14 LOW [facility] CHEMISTRY Alk Phos 84 unit/L 39 - 136 11/14 Normal [facility] CHEMISTRY BUN 3 mg/dL 7 - 22 11/14 LOW [facility] CHEMISTRY Creatinine 0.7 mg/dL 0.5 - 1.4 11/14 Normal [facility] CHEMISTRY Sodium Lvl 136 meq/L 135 - 145 11/14 Normal [facility] CHEMISTRY Total Protein 6.3 g/dL 6.4 - 8.4 11/14 LOW [facility] CHEMISTRY ALT 51 unit/L 0 - 65 11/14 Normal [facility] CHEMISTRY Potassium Lvl 3.7 meq/L 3.5 - 5.1 11/14 Normal [facility] CHEMISTRY Chloride Lvl 101 meq/L 95 - 109 11/14 Normal [facility] CHEMISTRY Glucose Lvl 210 mg/dL 70 - 99 11/14 HI 9Interpretive Data: Adult reference range values reflect the clinical guidelines of the [place] [employer]. [facility] CHEMISTRY AGAP 15.7 meq/L 10.0 - 11/14 Normal [place] 20.0 [facility] CHEMISTRY B/C Ratio 4 6 - 25 11/14 LOW [facility] CHEMISTRY Globulin 3.4 g/dL 2.0 - 4.0 11/14 Normal [facility] CHEMISTRY CO2 23 meq/L 24 - 32 11/14 LOW [facility] CHEMISTRY Bili Total 0.4 mg/dL 0.2 - 1.3 11/14 Normal [facility] CHEMISTRY Calcium Lvl 8.5 mg/dL 8.5 - 10.5 11/14 Normal [facility] CHEMISTRY Phosphorus 3.6 mg/dL 2.5 - 4.5 11/14 Normal [facility] CHEMISTRY Magnesium Lvl 1.5 mg/dL 1.8 - 2.4 11/14 LOW [facility] CHEMISTRY Ca Norm mgdL 3.52 mg/dL 4.65 - 11/14 LOW [facility] 5. [facility] CHEMISTRY Ca Ion mgdL 3.32 mg/dL 4.65 - 11/14 CRIT [place] 5. [facility] CHEMISTRY Ca Ion 0.83 1.16 - 11/14 CRIT 15Result [place] mMol/L 1. Comment: [facility] Result(s) called to Arlin Rose at 11/14/2012 00:23:56 CDT_ by_tvs. Read back OK. CHEMISTRY Ca Norm 0.88 1.16 - 11/14 CRIT [place] mMol/L 1. [facility] HEMATOLOGY Platelet 221 K/CMM 133 - 450 11/14 Normal [facility] HEMATOLOGY RDW 19.0 % 11.5 - 03 HI [place] 14.5 /2012 Medical Center HEMATOLOGY MCHC 32.4 g/dL 32.0 - 11/14 Normal [place] 36.0 [facility] HEMATOLOGY MCV 75.5 fL 81.0 - 11/14 LOW [place] 99.0 /2012 [facility] HEMATOLOGY Hct 35.5 % 36.0 - 11/14 LOW [place] 48.0 /2012 [facility] HEMATOLOGY Hgb 11.5 g/dL 12.0 - 11/14 LOW [place] 16.0 [facility] HEMATOLOGY MCH 24.5 pg 27.0 - 11/14 LOW [place] 31.0 [facility] HEMATOLOGY MPV 9.1 fL 7.4 - 10.4 11/14 Normal [facility] HEMATOLOGY RBC 4.70 M/CMM 4.20 - 03 Normal [place] 5.40 /2012 [facility] HEMATOLOGY WBC 8.6 K/CMM 3.7 - 10.4 11/14 Normal [facility] HEMATOLOGY Segs 53.3 % 45.0 - 11/14 Normal [facility] 75.0 /2012 [facility] HEMATOLOGY Microcyte 1+ None Seen 11/14 ABN [facility] *ABN* Center (11/13/2012 23:45:00) HEMATOLOGY Basophils # 0.1 K/CMM 0.0 - 0.2 11/14 Normal [facility] HEMATOLOGY Eosinophils # 0.2 K/CMM 0.0 - 0.5 11/14 Normal [facility] HEMATOLOGY Monocytes # 0.9 K/CMM 0.0 - 0.8 11/14 HI [facility] HEMATOLOGY Lymphocytes # 2.9 K/CMM 1.0 - 5.5 11/14 Normal [facility] HEMATOLOGY Monocytes 10.3 % 2.0 - 12.0 11/14 Normal [facility] HEMATOLOGY Lymphocytes 33.6 % 20.0 - 11/14 Normal [facility] 40.0 [facility] HEMATOLOGY Segs-Bands # 4.6 K/CMM 1.5 - 8.1 11/14 Normal [facility] HEMATOLOGY Basophils 0.7 % 0.0 - 1.0 11/14 Normal [facility] HEMATOLOGY Eosinophils 2.1 % 0.0 - 4.0 11/14 Normal [facility] CHEMISTRY Lipase Lvl 43 unit/L 73 - 393 11/13 LOW [facility] CHEMISTRY Amylase Lvl 14 unit/L 25 - 115 11/13 [facility] CHEMISTRY A/G Ratio 0.8 0.7 - 1.6 11/13 Normal [facility] CHEMISTRY AST 56 unit/L 0 - 37 11/13 HI [facility] CHEMISTRY Alk Phos 67 unit/L 39 - 136 11/13 Normal [facility] CHEMISTRY Globulin 2.9 g/dL 2.0 - 4.0 11/13 Normal [facility] CHEMISTRY Total Protein 5.3 g/dL 6.4 - 8.4 11/13 LOW [facility] CHEMISTRY Albumin Lvl 2.4 g/dL 3.5 - 5.0 11/13 LOW [facility] CHEMISTRY ALT 41 unit/L 0 - 65 11/13 Normal [facility] CHEMISTRY Bili Indirect 0.3 mg/dL 0.0 - 1.0 11/13 Normal [facility] CHEMISTRY Bili Direct 0.1 mg/dL 0.0 - 0.3 11/13 Normal [facility] CHEMISTRY Bili Total 0.4 mg/dL 0.2 - 1.3 11/13 Normal [facility] CHEMISTRY eGFR 137 11/13 NA 7Result Comment: The eGFR is calculated using the CKD-EPI formula. In most young, healthy individuals the eGFR will be > 90 mL/min/1.73m2. The eGFR declines with age. An eGFR of 60-89 may be normal in [facility] mL/min/1. some populations, particularly the elderly, for whom the CKD-EPI formula has not been extensively validated. Use of the eGFR is not recommended in the following populations: [address] Individuals with unstable creatinine concentrations, including [...] AGAP 17.3 meq/L 10.0 - 11/13 Normal [facility] 20.0 [facility] CHEMISTRY Calcium Lvl 6.7 mg/dL 8.5 - 10.5 11/13 CRIT 13Result Comment: [facility] Critical [facility] Result(s) called to tino gustafson at _11/13/2012 06:59:47 CDT bylg. Read back OK. CHEMISTRY CO2 17 meq/L 24 - 32 11/13 LOW [facility] CHEMISTRY Chloride Lvl 111 meq/L 95 [...] values reflect the clinical guidelines of the [place] [employer]. [facility] CHEMISTRY Magnesium Lvl 1.3 mg/dL 1.8 - 2.4 11/13 LOW [facility] CHEMISTRY Phosphorus 2.8 mg/dL 2.5 - 4.5 11/13 Normal [facility] CHEMISTRY Ca Ion 1.01 1.16 - 11/13 [facility] [place] mMol/L 1. [facility] CHEMISTRY Ca Norm 1.07 1.16 - 11/13 [facility] mMol/L 1. [facility] CHEMISTRY Ca Norm mgdL 4.28 mg/dL 4.65 - 11/13 [facility] [place] . [facility] CHEMISTRY Ca Ion mgdL 4.04 mg/dL 4.65 - 11/13 [facility] 5.20 Medical Center HEMATOLOGY MCV 78.6 fL 81.0 - 11/13 [facility] [place] 99.0 /2012 [facility] HEMATOLOGY MPV 9.1 fL 7.4 - 10.4 11/13 Normal [facility] HEMATOLOGY MCHC 31.1 g/dL 32.0 - 11/13 [facility] [place] 36.0 [facility] HEMATOLOGY MCH 24.4 pg 27.0 - 11/13 [facility] [place] 31.0 [facility] HEMATOLOGY Hct 29.4 % 36.0 - 03 [facility] [place] 48.0 /2012 [facility] Center HEMATOLOGY RDW 19.1 % 11.5 - 0310 [facility] [place] 14.5 /2012 Medical Center HEMATOLOGY Platelet 192 K/CMM 133 - 450 11/13 Normal [facility] HEMATOLOGY Hgb 9.1 g/dL 12.0 - 03 [facility] [place] 16.0 [facility] HEMATOLOGY RBC 3.74 M/CMM 4.20 - 03 [facility] [place] 5.40 /2012 [facility] HEMATOLOGY WBC 6.8 K/CMM 3.7 - 10.4 03 Normal [facility] HEMATOLOGY Plt Morph Normal 11/13 Normal [facility] (11/13/2012 05:00:00) [facility] HEMATOLOGY Atypical 0.0 % <=0.0 11/13 Normal [facility] Lymphs [facility] HEMATOLOGY RBC Morph Normal 11/13 Normal [facility] (11/13/2012 05:00:00) [facility] HEMATOLOGY Eosinophils 2.0 % 0.0 - 4.0 11/13 Normal [facility] HEMATOLOGY Bands 0.0 % 0.0 - 11.0 11/13 Normal [facility] HEMATOLOGY Segs 51.0 % 45.0 - 11/13 Normal [place] 75.0 [facility] HEMATOLOGY Eosinophils # 0.1 K/CMM 0.0 - 0.5 11/13 Normal [facility] HEMATOLOGY Segs-Bands # 3.5 K/CMM 1.5 - 8.1 11/13 Normal [facility] HEMATOLOGY Monocytes 5.0 % 2.0 - 12.0 11/13 Normal [facility] HEMATOLOGY Lymphocytes 42.0 % 20.0 - 11/13 HI [facility] 40.0 [facility] HEMATOLOGY Monocytes # 0.3 K/CMM 0.0 - 0.8 11/13 Normal [facility] HEMATOLOGY Lymphocytes # 2.9 K/CMM 1.0 - 5.5 11/13 [facility] INFECTIOUS C difficile Negative 1 Negative 11/13 Normal 1Interpretive Data: [employer] Clostridium difficile assay utilizes loop-mediated isothermal DNA amplification (LAMP) technology to detect a 204 bp region of the tcdA gene within the PaLoc gene [facility] segment present in all known toxigenic C. difficile strains. [facility] (11/12/2012 21:54:26) [facility] The assay utilizes FDA cleared IVD reagents. Performance characteristics have been verified by the [facility] within the [facility]. The [facility] is authorized under the Clinical Laboratory Improvement Amendment of 1988 (CLIA-88) to perform high complexity testing. CHEMISTRY Total CK 25 unit/L 12 - 191 11/12 Normal [facility] CHEMISTRY Troponin-I null 0.00 - 11/12 Normal [facility] 0.40 [facility] CHEMISTRY eGFR 88 11/12 NA 8Result Comment: The eGFR is calculated using the CKD-EPI formula. In most young, healthy individuals the eGFR will be > 90 mL/min/1.73m2. The eGFR declines with age. An eGFR of 60-89 may be normal in [facility] mL/min/1. some populations, particularly the elderly, for whom the CKD-EPI formula has not been extensively validated. Use of the eGFR is not recommended in the following populations: [facility] Individuals with unstable creatinine concentrations, including [...] AGAP 13.7 meq/L 10.0 - 11/12 Normal [facility] 20.0 [facility] CHEMISTRY Calcium Lvl 8.5 mg/dL 8.5 - 10.5 11/12 Normal [facility] CHEMISTRY CO2 25 meq/L 24 - 32 11/12 Normal [facility] CHEMISTRY Potassium Lvl 3.7 meq/L 3.5 - 5.1 11/12 Normal [facility]2012 [facility] CHEMISTRY Sodium Lvl 138 meq/L 135 - 145 11/12 Normal [facility] CHEMISTRY Chloride Lvl 103 meq/L 95 - 109 11/12 Normal [facility] CHEMISTRY Creatinine 0.8 mg/dL 0.5 - 1.4 11/12 Normal [facility] CHEMISTRY BUN 5 mg/dL 7 - 22 11/12 LOW [facility] CHEMISTRY Glucose Lvl 40 mg/dL 70 - 99 11/12 CRIT 12Interpretive Data: Adult reference range values reflect the clinical guidelines of the [place] [employer]. [facility] CHEMISTRY Ca Norm mgdL 4.20 mg/dL 4.65 - 11/12 LOW [facility] 01.23 [facility] CHEMISTRY Ca Norm 1.05 1.16 - 11/12 LOW [place] mMol/L 10.05 [facility] CHEMISTRY Ca Ion mgdL 4.00 mg/dL 4.65 - 11/12 LOW [facility] 01.23 [facility] CHEMISTRY Ca Ion 1.00 1.16 - 11/12 LOW [facility] [place] mMol/L 10.052013 [facility] CHEMISTRY Magnesium Lvl 1.9 mg/dL 1.8 - 2.4 11/12 Normal [facility] CHEMISTRY Phosphorus 3.2 mg/dL 2.5 - 4.5 11/12 Normal [facility] HEMATOLOGY MCHC 32.0 g/dL 32.0 - 11/12 Normal [facility] 36.0 /2012 [facility] HEMATOLOGY MCH 24.1 pg 27.0 - 11/12 LOW [facility] 31.0 [facility] HEMATOLOGY MCV 75.3 fL 81.0 - 03 LOW [facility] 99.0 /2012 [facility] HEMATOLOGY WBC 9.2 K/CMM 3.7 - 10.4 11/12 Normal [facility] HEMATOLOGY Platelet 233 K/CMM 133 - 450 11/12 Normal [facility] HEMATOLOGY MPV 9.1 fL 7.4 - 10.4 11/12 Normal [facility] HEMATOLOGY RDW 19.0 % 11.5 - 03 HI [facility] 14.5 [facility] HEMATOLOGY RBC 4.19 M/CMM 4.20 - 11/12 [facility] 5.40 /2012 [facility] HEMATOLOGY Hgb 10.1 g/dL 12.0 - 11/12 LOW [facility] 16.0 [facility] HEMATOLOGY Hct 31.6 % 36.0 - 03 [facility] 48.0 /2012 [facility] HEMATOLOGY Hypochrom Slight None Seen 11/12 Normal [facility] (11/12/2012 00:19:00) Center HEMATOLOGY Large Plt Slight None Seen 11/12 ABN Medical *ABN* Center (11/12/2012 00:19:00) HEMATOLOGY Atypical 0.0 % <=0.0 11/12 Normal [facility] Lymphs [facility] HEMATOLOGY Basophils 1.0 % 0.0 - 1.0 11/12 Normal [facility] HEMATOLOGY Lymphocytes 39.0 % 20.0 - 03 [facility] 40.0 [facility] HEMATOLOGY Bands 0.0 % 0.0 - 11.0 11/12 Normal [facility] HEMATOLOGY Eosinophils 2.0 % 0.0 - 4.0 11/12 Normal [facility] HEMATOLOGY Monocytes 6.0 % 2.0 - 12.0 11/12 Normal [facility] HEMATOLOGY Segs 52.0 % 45.0 - 03 Normal [place] 75.0 [facility] HEMATOLOGY Basophils # 0.1 K/CMM 0.0 - 0.2 11/12 Normal 2012 [facility] HEMATOLOGY Monocytes # 0.6 K/CMM 0.0 - 0.8 11/12 Normal [facility] HEMATOLOGY Lymphocytes # 3.6 K/CMM 1.0 - 5.5 11/12 Normal 2012 [facility] HEMATOLOGY Segs-Bands # 4.8 K/CMM 1.5 - 8.1 11/12 Normal [facility] HEMATOLOGY Eosinophils # 0.2 K/CMM 0.0 - 0.5 11/12 Normal 2012 [facility] HEMATOLOGY Microcyte 1+ None Seen 11/11 [facility] *[facility] (11/11/2012 03:41:00) HEMATOLOGY Basophils # 0.1 K/CMM 0.0 - 0.2 11/11 Normal [facility] HEMATOLOGY Basophils 0.7 % 0.0 - 1.0 11/11 Normal [facility] HEMATOLOGY Microcyte 1+ None Seen 11/09 [facility] (11/09/2012 05:12:00) URINALYSIS UA pH 5.0 5.0 - 8.0 11/08 Normal [facility] URINALYSIS UA Protein 20 mg/dL Negative 11/08 [facility] (11/07/2012 20:54:00) URINALYSIS UA Turbidity Slight Clear 11/08 [facility] (11/07/2012 20:54:00) URINALYSIS UA Spec Grav 1.010 <=1.030 11/08 Normal [facility] URINALYSIS UA Color Yellow Yellow 11/08 [facility] (11/07/2012 20:54:00) URINALYSIS UA Bacteria Moderate /HPF None Seen 11/08 [facility] (11/07/2012 20:54:00) URINALYSIS UA Mucus Few /LPF None Seen 11/08 [facility] (11/07/2012 20:54:00) URINALYSIS UA WBC null 0 - 5 11/08 [facility] URINALYSIS UA RBC 4 /HPF 0 - 2 11/08 [facility] URINALYSIS UA Sq Epi Moderate /LPF Few 11/08 [facility] *ABN* Center (11/07/2012 20:54:00) URINALYSIS UA Leuk Est Large Negative 11/08 [facility] *ABN* Center (11/07/2012 20:54:00) URINALYSIS UA Blood Trace Negative 11/08 [facility] *ABN* [facility] (11/07/2012 20:54:00) URINALYSIS UA Nitrite Negative Negative 11/08 Normal [facility] (11/07/2012 20:54:00) Center URINALYSIS UA Ketones 40 mg/dL Negative 11/08 [facility] (11/07/2012 20:54:00) URINALYSIS UA Bili Negative Negative 11/08 [facility] *NA* Center (11/07/2012 20:54:00) URINALYSIS Micro? Performed 11/08 NA [facility] *NA* Center (11/07/2012 20:54:00) URINALYSIS UA <=1.0 0.1 - 1.0 11/08 [facility] Urobilinogen mg/dL Medical
*NA*< Center br/>(11/07 20:54:00) <sup> </sup> URINALYSIS UA Glucose >=1000mg/d 11/08 [facility] URINALYSIS UA Hyal Cast 37 /LPF 0 - 2 11/08 [facility] URINALYSIS UA Ketones 40 mg/dL Negative 11/07 [facility] *ABN* Center (11/07/2012 06:24:57) CHEMISTRY Hgb A1C 8.2 % 11/07 NA 14Interpretive Data: HbA1C% eAG( mg/dL) Interpretation 6.0 126 Very good control [facility] 6.5 140 Very good control [facility] 7.0 154 Good Control 7.5 169 Good Control 8.0 183 Marginal Control, take action to lower 8.5 197 Marginal Control, take action to lower 9.0 212 Poor Control, take action to lower 9.5 226 Poor Control, take action to lower 10.0 240 Poor Control, take action to lower CHEMISTRY Ketone 2.20 <=0.27 11/06 [place] Quantitative mmol/L /2012 [facility] CHEMISTRY U Osmolality 207 300 - 800 11/06 LOW [facility] mOsm/kg [facility] CHEMISTRY POC A %FIO2 21.0 % 18.0 - 03 Normal [facility] 100.0 [facility] CHEMISTRY POC A LA 0.9 mMol/L 0.5 - 2.2 11/06 Normal [facility] CHEMISTRY POC A Glu 281 mg/dL 70 - 99 11/06 [facility] CHEMISTRY POC A Temp 37.0 Abby 11/06 NA [facility] CHEMISTRY POC A Source ART 11/06 [facility] CHEMISTRY POC A pH 7.45 7.35 - 11/06 Normal [facility] 7.45 [facility] CHEMISTRY POC A HCO3 24 mMol/L 22 - 26 11/06 Normal [facility] CHEMISTRY POC A PCO2 35 mm[Hg] 35 - 45 11/06 Normal [facility] CHEMISTRY POC A PO2 85 mm[Hg] 80 - 100 11/06 Normal [facility] CHEMISTRY POC A BE 0 mMol/L -2-2 - 2 11/06 Normal [facility] CHEMISTRY POC A O2 Sat 97.0 % 95.0 - 11/06 [facility] 100.0 [facility] CHEMISTRY POC A Na 123 meq/L 135 - 145 11/06 LOW [facility] CHEMISTRY POC A Hct 31.0 % 36.0 - 11/06 [facility] 48.0 [facility] CHEMISTRY POC A Ca Ion 1.11 1.16 - 03 [facility] mMol/L 1.30 [facility] CHEMISTRY POC A K 3.7 meq/L 3.5 - 5.1 11/06 Normal [facility] CHEMISTRY POC A BE -4 mMol/L -2-2 - 2 11/06 LOW [facility] CHEMISTRY POC A HCO3 20 mMol/L 22 - 26 11/06 LOW [facility] CHEMISTRY POC A Source ART 11/06 NA [facility] CHEMISTRY POC A Temp 37.0 Abby 11/06 NA [facility] CHEMISTRY POC A pH 7.42 7.35 - 03/03 Normal [facility] 7.45 /2012 [facility] CHEMISTRY POC A PO2 81 mm[Hg] 80 - 100 11/06 Normal [facility] CHEMISTRY POC A O2 Sat 96.0 % 95.0 - 11/06 Normal [facility] 100.0 [facility] CHEMISTRY POC A PCO2 31 mm[Hg] 35 - 45 11/06 LOW [facility] CHEMISTRY POC A %FIO2 21.0 % 18.0 - 03 Normal [facility] 100.0 /2012 [facility] Microbiolog Culture: 11/06 [facility] y Urine /2012 [facility] CHEMISTRY Troponin-I null 0.00 - 11/06 Normal [facility] 0.40 /2012 [facility] CHEMISTRY Troponin-T null 0.000 - 11/06 Normal [facility] 0.100 /2012 [facility] CHEMISTRY Total CK 48 unit/L 12 - 191 11/06 Normal [facility] URINALYSIS UA <=1.0 0.1 - 1.0 11/06 [facility] Urobilinogen mg/dL Medical
*NA*< Center br/>(11/06 03:15:40) <sup> </sup> URINALYSIS UA Leuk Est Large Negative 11/06 [facility] *ABN* Center (11/06/2012 03:15:40) URINALYSIS UA Sq Epi Moderate /LPF Few 11/06 [facility] *ABN* Center (11/06/2012 03:15:40) URINALYSIS UA Mucus Few /LPF None Seen 11/06 [facility] *NA* Center (11/06/2012 03:15:40) URINALYSIS UA Nitrite Negative Negative 11/06 Normal [facility] (11/06/2012 03:15:40) Center URINALYSIS UA Bacteria Occasional /HPF None Seen 11/06 [facility] *NA* Center (11/06/2012 03:15:40) URINALYSIS UA WBC 67 /HPF 0 - 5 11/06 [facility] Center URINALYSIS UA Blood Negative Negative 11/06 Normal [facility] (11/06/2012 03:15:40) Center URINALYSIS UA Bili Negative Negative 11/06 [facility] Medical *NA* Center (11/06/2012 03:15:40) URINALYSIS UA Ketones 60 mg/dL Negative 11/06 ABN [facility] *ABN* Center (11/06/2012 03:15:40) URINALYSIS UA pH 5.0 5.0 - 8.0 11/06 Normal [facility] URINALYSIS UA Glucose >=1000 mg/dL Negative 11/06 [facility] *ABN* Center (11/06/2012 03:15:40) URINALYSIS UA Spec Grav 1.014 <=1.030 11/06 Normal [facility] URINALYSIS UA Protein Negative mg/dL Negative 11/06 Normal Medical (11/06/2012 03:15:40) Center URINALYSIS UA Turbidity Slight Clear 11/06 [facility] *ABN* Center (11/06/2012 03:15:40) URINALYSIS UA Color Yellow Yellow 11/06 NA [facility] *NA* Center (11/06/2012 03:15:40) CHEMISTRY Troponin-I 0.02 ng/mL 0.00 - 11/06 Normal [facility] 0.40 [facility] CHEMISTRY Total CK 30 unit/L 12 - 191 11/06 Normal [facility] CHEMISTRY Troponin-T null 0.000 - 11/06 Normal [facility] 0.100 [facility] CHEMISTRY Ketone 3.00 <=0.27 11/06 [facility] Quantitative mmol/L /2012 [facility] CHEMISTRY Lipase Lvl 89 unit/L 73 - 393 11/06 Normal [facility] CHEMISTRY Globulin 4.3 g/dL 2.0 - 4.0 11/06 [place] [facility] CHEMISTRY A/G Ratio 0.9 0.7 - 1.6 11/06 Normal [facility] CHEMISTRY B/C Ratio 7 6 - 25 11/06 Normal [facility] CHEMISTRY Albumin Lvl 3.7 g/dL 3.5 - 5.0 11/06 Normal [facility] CHEMISTRY Total Protein 8.0 g/dL 6.4 - 8.4 11/06 Normal [facility] CHEMISTRY ALT 62 unit/L 0 - 65 11/06 Normal [facility] CHEMISTRY Alk Phos 119 unit/L 39 - 136 11/06 Normal [facility] CHEMISTRY Bili Total 0.5 mg/dL 0.2 - 1.3 11/06 Normal [facility] CHEMISTRY AST 44 unit/L 0 - 37 11/06 HI [facility] HEMATOLOGY Polychrom Slight None Seen 11/06 Normal Medical (11/05/2012 20:40:00) Center HEMATOLOGY Hypochrom Slight None Seen 11/06 Normal Medical (11/05/2012 20:40:00) Center HEMATOLOGY Bands 1.0 % 0.0 - 11.0 11/06 Normal [facility] HEMATOLOGY Anisocyte 1+ None Seen 11/06 ABN Medical *ABN* Center (11/05/2012 20:40:00) HEMATOLOGY Atypical 0.0 % <=0.0 11/06 Normal [facility] HEMATOLOGY Macrocyte 1+ None Seen 11/06 ABN [facility] *ABN* [facility] (11/05/2012 20:40:00) HEMATOLOGY Plt Morph Normal 11/06 Normal [facility] (11/05/2012 20:40:00) Center HEMATOLOGY INR 0.98 0.85 - 11/06 Normal 16Interpretive Data: RECOMMENDED RANGES FOR PROTIME INR: [facility] . 2.0-3.0 for most medical and surgical thromboembolic states. Medical 2.5-3.5 for artificial heart valves and recurrent embolism. Center INR SHOULD BE USED ONLY FOR PATIENTS ON STABLE ANTICOAGULANT THERAPY. HEMATOLOGY PT 13.2 s 12.0 - 11/06 Normal [facility] 14.7 [facility] HEMATOLOGY PTT 26.4 s 22.9 - 11/06 Normal 17Interpretiv [facility] 35.8 /2012 e Data: [facility] Therapeutic Range: 57 - 92 Seconds BEDSIDE Gluc POC null 70 - 11/01 CRIT 3Interpretive [facility] GLUCOSE [facility] Data: Medical TESTING Center Upper Reportable Limit: 200 mg/dL. BEDSIDE Comment1 Notify 11/01 NA [facility]i GLUCOSE RN/MD /2012 [facility] Center BEDSIDE Gluc POC 237 mg/dL - 99 10/31 [place] 4Interpretive [facility] GLUCOSE [facility] Data: Medical TESTING Center Upper Reportable Limit: 200 mg/dL. BEDSIDE Gluc POC 357 mg/dL - 10/31 [place] 5Interpretive [facility] GLUCOSE [facility] Data: [facility] Center Upper Reportable Limit: 200 mg/dL. BEDSIDE Comment1 Notify 10/31 NA [facility] GLUCOSE RN/MD /2012 Medical [facility] Center CHEMISTRY Phosphorus 4.2 mg/dL 2.5 - 4.5 10/31 Normal [facility] CHEMISTRY Ca Norm mgdL 4.64 mg/dL 4.65 - 10/31 LOW [facility] 5. [facility] CHEMISTRY Ca Ion mgdL 4.44 mg/dL 4.65 - 10/31 LOW [facility] 5. [facility] CHEMISTRY Ca Norm 1.16 1.16 - 10/31 Normal [facility] mMol/L 1. [facility] CHEMISTRY Ca Ion 1.11 1.16 - 10/31 LOW [facility] mMol/L . [facility] CHEMISTRY AGAP 16.9 meq/L 10.0 - 10/31 Normal [facility] 20.0 [facility] CHEMISTRY eGFR 67 10/31 NA 7Result Comment: The eGFR is calculated using the CKD-EPI formula. In most young, healthy individuals the eGFR will be > 90 mL/min/1.73m2. The eGFR declines with age. An eGFR of 60-89 may be normal in [facility] mL/min/1.7 some populations, particularly the elderly, for whom the CKD-EPI formula has not been extensively validated. Use of the eGFR is not recommended in the following populations: [place] [address] Center Individuals with unstable creatinine concentrations, including [...] 1.0 mg/dL 0.5 - 1.4 10/31 Normal [facility] Lvl [facility] Center CHEMISTRY Sodium Lvl 133 meq/L 135 - 145 10/31 LOW [facility] CHEMISTRY Calcium Lvl 8.3 mg/dL 8.5 - 10.5 10/31 [facility] CHEMISTRY Potassium Lvl 3.9 meq/L 3.5 - 5.1 10/31 Normal [facility] CHEMISTRY Chloride Lvl 94 meq/L 95 - 109 10/31 [facility] CHEMISTRY CO2 26 meq/L 24 - 32 10/31 Normal [facility] CHEMISTRY BUN 8 mg/dL 7 - 22 10/31 Normal [facility] CHEMISTRY Glucose Lvl 75 mg/dL 70 - 99 10/31 Normal 10Interpretive Data: Adult reference range values reflect the clinical guidelines of the [place] [employer]. [facility] CHEMISTRY Magnesium Lvl 1.9 mg/dL 1.8 - 2.4 10/31 Normal [facility] HEMATOLOGY MPV 9.4 fL 7.4 - 10.4 10/31 Normal [facility] HEMATOLOGY Hgb 9.7 g/dL 12.0 - 10/31 [facility] 16.0 [facility] HEMATOLOGY RBC 4.06 M/CMM 4.20 - 10/31 [facility] 5.40 [facility] HEMATOLOGY MCV 74.3 fL 81.0 - 10/31 [facility] 99.0 [facility] HEMATOLOGY Hct 30.2 % 36.0 - 10/31 [facility] 48.0 [facility] HEMATOLOGY MCHC 32.2 g/dL 32.0 - 10/31 [facility] 36.0 [facility] HEMATOLOGY MCH 23.9 pg 27.0 - 10/31 [facility] 31.0 [facility] HEMATOLOGY Platelet 199 K/CMM 133 - 450 10/31 Normal [facility] HEMATOLOGY RDW 17.5 % 11.5 - 10/31 [facility] 14.5 [facility] HEMATOLOGY WBC 9.4 K/CMM 3.7 - 10.4 10/31 [facility] HEMATOLOGY Lymphocytes # 2.7 K/CMM 1.0 - 5.5 10/31 [facility] HEMATOLOGY Basophils 0.6 % 0.0 - 1.0 10/31 [facility] HEMATOLOGY Segs-Bands # 5.2 K/CMM 1.5 - 8.1 10/31 [facility] HEMATOLOGY Microcyte 1+ None Seen 10/31 [facility] Medical *ABN* Center (10/31/2012 04:00:00) HEMATOLOGY Monocytes # 1.1 K/CMM 0.0 - 0.8 10/31 [facility] HEMATOLOGY Eosinophils # 0.3 K/CMM 0.0 - 0.5 10/31 Normal [facility] HEMATOLOGY Basophils # 0.1 K/CMM 0.0 - 0.2 10/31 Normal [facility] HEMATOLOGY Segs 55.2 % 45.0 - 10/31 Normal [facility] 75.0 [facility] HEMATOLOGY Monocytes 11.8 % 2.0 - 12.0 10/31 Normal [facility] HEMATOLOGY Lymphocytes 28.9 % 20.0 - 10/31 Normal [place] 40.0 [facility] HEMATOLOGY Eosinophils 3.5 % 0.0 - 4.0 10/31 Normal [facility] BEDSIDE Comment1 Notify 10/31 NA [facility] GLUCOSE RN/MD [facility] CHEMISTRY Ca Norm mgdL 4.92 mg/dL 4. - 10/30 Normal [facility] 5. [facility] CHEMISTRY Ca Ion mgdL 4.76 mg/dL 4.65 - 10/30 Normal [facility] 5. [facility] CHEMISTRY Ca Norm 1.23 1.16 - 10/30 Normal [facility] mMol/L 1. [facility] CHEMISTRY Ca Ion 1.19 1.16 - 10/30 Normal [facility] mMol/L 1. [facility] CHEMISTRY Phosphorus 3.8 mg/dL 2.5 - 4.5 10/30 Normal [facility] CHEMISTRY Magnesium Lvl 1.9 mg/dL 1.8 - 2.4 10/30 Normal [facility]2012 [facility] CHEMISTRY eGFR 88 10/30 NA 8Result Comment: The eGFR is calculated using the CKD-EPI formula. In most young, healthy individuals the eGFR will be > 90 mL/min/1.73m2. The eGFR declines with age. An eGFR of 60-89 may be normal in [facility] mL/min/1.7 some populations, particularly the elderly, for whom the CKD-EPI formula has not been extensively validated. Use of the eGFR is not recommended in the following populations: [place] [address] Center Individuals with unstable creatinine concentrations, including [...] values reflect the clinical guidelines of the [place] [employer]. Medical Center CHEMISTRY Creatinine 0.8 mg/dL 0.5 - 1.4 10/30 Normal [facility] Lvl [facility] Center CHEMISTRY BUN 6 mg/dL 7 - 22 10/30 LOW [facility] CHEMISTRY Sodium Lvl 132 meq/L 135 - 145 10/30 LOW [facility] CHEMISTRY Calcium Lvl 8.5 mg/dL 8.5 - 10.5 10/30 Normal [facility] CHEMISTRY CO2 29 meq/L 24 - 32 10/30 Normal [facility] CHEMISTRY Chloride Lvl 92 meq/L 95 - 109 10/30 LOW [facility] CHEMISTRY Potassium Lvl 3.8 meq/L 3.5 - 5.1 10/30 Normal [facility] CHEMISTRY AGAP 14.8 meq/L 10.0 - 10/30 Normal [facility] 20.0 [facility] HEMATOLOGY Platelet 245 K/CMM 133 - 450 10/30 Normal [facility] HEMATOLOGY MPV 9.4 fL 7.4 - 10.4 10/30 Normal [facility] HEMATOLOGY Hct 33.1 % 36.0 - 10/30 LOW [facility] 48.0 [facility] HEMATOLOGY RBC 4.47 M/CMM 4.20 - 10/30 Normal [facility] 5.40 /2012 [facility] HEMATOLOGY WBC 11.0 K/CMM 3.7 - 10.4 10/30 HI [facility] HEMATOLOGY Hgb 10.6 g/dL 12.0 - 10/30 LOW [facility] 16.0 [facility] HEMATOLOGY MCHC 31.9 g/dL 32.0 - 10/30 LOW [facility] 36.0 [facility] HEMATOLOGY MCV 74.1 fL 81.0 - 10/30 [facility] 99.0 /2012 [facility] HEMATOLOGY MCH 23.7 pg 27.0 - 10/30 LOW [facility] 31.0 [facility] HEMATOLOGY RDW 16.9 % 11.5 - 10/30 HI [facility] 14.5 /2012 Medical Center HEMATOLOGY PTT 28.1 s 22.9 - 10/30 Normal 25Interpretiv [facility] 35.8 /2012 e Data: [facility] Therapeutic Range: 57 - 92 Seconds HEMATOLOGY PT 13.7 s 12.0 - 10/30 Normal [facility] 14.7 /2012 [facility] HEMATOLOGY INR 1.03 0.85 - 10/30 Normal 22Interpretive Data: RECOMMENDED RANGES FOR PROTIME INR: [facility] 1. 2.0-3.0 for most medical and surgical thromboembolic states. Medical 2.5-3.5 for artificial heart valves and recurrent embolism. Center INR SHOULD BE USED ONLY FOR PATIENTS ON STABLE ANTICOAGULANT THERAPY. HEMATOLOGY Segs-Bands # 7.5 K/CMM 1.5 - 8.1 10/30 Normal [facility] HEMATOLOGY Basophils 0.4 % 0.0 - 1.0 10/30 Normal [facility] HEMATOLOGY Monocytes # 1.1 K/CMM 0.0 - 0.8 10/30 HI [facility] HEMATOLOGY Lymphocytes # 2.1 K/CMM 1.0 - 5.5 10/30 Normal 2012 [facility] HEMATOLOGY Microcyte 1+ None Seen 10/30 ABN Medical *ABN* Center (10/30/2012 00:20:00) HEMATOLOGY Eosinophils # 0.2 K/CMM 0.0 - 0.5 10/30 Normal [facility] HEMATOLOGY Segs 68.3 % 45.0 - 10/30 Normal [facility] 75.0 [facility] HEMATOLOGY Lymphocytes 18.9 % 20.0 - 10/30 LOW [facility] 40.0 [facility] HEMATOLOGY Monocytes 10.3 % 2.0 - 12.0 10/30 Normal [facility] HEMATOLOGY Eosinophils 2.1 % 0.0 - 4.0 10/30 Normal [facility] CHEMISTRY Magnesium Lvl 2.1 mg/dL 1.8 - 2.4 10/29 Normal [facility] CHEMISTRY Phosphorus 4.1 mg/dL 2.5 - 4.5 10/29 Normal [facility] CHEMISTRY Ca Ion mgdL 3.96 mg/dL 4.65 - 10/29 LOW [facility] 5.20 [facility] CHEMISTRY Ca Norm 1.01 1.16 - 10/29 LOW [place] mMol/L 1. [facility] CHEMISTRY Ca Ion 0.99 1.16 - 10/29 LOW [facility] mMol/L 1. [facility] CHEMISTRY Ca Norm mgdL 4.04 mg/dL 4.65 - 10/29 LOW [facility] 5.20 [facility] CHEMISTRY eGFR 104 10/29 NA 9Result Comment: The eGFR is calculated using the CKD-EPI formula. In most young, healthy individuals the eGFR will be > 90 mL/min/1.73m2. The eGFR declines with age. An eGFR of 60-89 may be normal in [facility] mL/min/1. some populations, particularly the elderly, for whom the CKD-EPI formula has not been extensively validated. Use of the eGFR is not recommended in the following populations: [address] Individuals with unstable creatinine concentrations, including [...] 0.7 mg/dL 0.5 - 1.4 10/29 Normal [facility] CHEMISTRY BUN 3 mg/dL 7 - 10/29 LOW [facility] CHEMISTRY Calcium Lvl 8.9 mg/dL 8.5 - 10.5 10/29 Normal [facility] CHEMISTRY Glucose Lvl 90 mg/dL 70 - 99 10/29 Normal 12Interpretive Data: Adult reference range values reflect the clinical guidelines of the [place] [employer]. [facility] CHEMISTRY Chloride Lvl 99 meq/L 95 - 109 10/29 Normal [facility] CHEMISTRY Potassium Lvl 4.4 meq/L 3.5 - 5.1 10/29 Normal [facility] CHEMISTRY CO2 27 meq/L 24 - 32 10/29 Normal [facility] CHEMISTRY Sodium Lvl 139 meq/L 135 - 145 10/29 Normal [facility] CHEMISTRY AGAP 17.4 meq/L 10.0 - 10/29 Normal [facility] 20.0 [facility] HEMATOLOGY PTT 23.7 s 22.9 - 10/29 Normal 26Interpretiv [facility] 35.8 e Data: [facility] Therapeutic Range: 57 - 92 Seconds HEMATOLOGY PT 13.4 s 12.0 - 10/29 Normal [facility] 14.7 [facility] HEMATOLOGY INR 1.00 0.85 - 10/29 Normal Interpretive Data: RECOMMENDED RANGES FOR PROTIME INR: [facility] . 2.0-3.0 for most medical and surgical thromboembolic states. Medical 2.5-3.5 for artificial heart valves and recurrent embolism. Center INR SHOULD BE USED ONLY FOR PATIENTS ON STABLE ANTICOAGULANT THERAPY. HEMATOLOGY RDW 17.1 % 11.5 - 10/29 [facility] 14.5 /2012 [facility] HEMATOLOGY MCH 23.8 pg 27.0 - 10/29 [facility] 31.0 /2012 [facility] HEMATOLOGY MCHC 32.2 g/dL 32.0 - 10/29 Normal [facility] 36.0 /2012 [facility] HEMATOLOGY Hct 33.6 % 36.0 - 10/29 [facility] 48.0 /2012 [facility] HEMATOLOGY MCV 74.0 fL 81.0 - 10/29 [facility] 99.0 [facility] HEMATOLOGY Platelet 233 K/CMM 133 - 450 10/29 Normal [facility] HEMATOLOGY MPV 9.9 fL 7.4 - 10.4 10/29 Normal [facility] HEMATOLOGY RBC 4.54 M/CMM 4.20 - 10/29 [facility] 5.40 /2012 [facility] HEMATOLOGY Hgb 10.8 g/dL 12.0 - 10/29 [facility] 16.0 [facility] HEMATOLOGY WBC 9.7 K/CMM 3.7 - 10.4 10/29 Normal [facility] HEMATOLOGY Lymphocytes # 2.6 K/CMM 1.0 - 5.5 10/29 Normal [facility] HEMATOLOGY Basophils 0.7 % 0.0 - 1.0 10/29 Normal [facility] HEMATOLOGY Segs-Bands # 6.0 K/CMM 1.5 - 8.1 10/29 Normal [facility] HEMATOLOGY Monocytes # 0.7 K/CMM 0.0 - 0.8 10/29 Normal [facility] HEMATOLOGY Eosinophils # 0.3 K/CMM 0.0 - 0.5 10/29 Normal [facility] HEMATOLOGY Basophils # 0.1 K/CMM 0.0 - 0.2 10/29 Normal [facility] HEMATOLOGY Microcyte 1+ None Seen 10/29 ABN Medical *ABN* Center (10/29/2012 00:56:00) HEMATOLOGY Segs 61.5 % 45.0 - 10/29 Normal [facility] 75.0 [facility] HEMATOLOGY Lymphocytes 26.8 % 20.0 - 10/29 Normal [facility] 40.0 [facility] HEMATOLOGY Monocytes 7.6 % 2.0 - 12.0 10/29 Normal [facility] HEMATOLOGY Eosinophils 3.4 % 0.0 - 4.0 10/29 Normal [facility] CHEMISTRY Amylase Lvl 27 unit/L 25 - 115 10/28 Normal [facility] CHEMISTRY Lipase Lvl 58 unit/L 73 - 393 10/28 LOW [facility] CHEMISTRY Bili Indirect 0.2 mg/dL 0.0 - 1.0 10/28 Normal [facility] CHEMISTRY Globulin 3.4 g/dL 2.0 - 4.0 10/28 Normal [facility] CHEMISTRY A/G Ratio 0.8 0.7 - 1.6 10/28 Normal [facility] CHEMISTRY AST 24 unit/L 0 - 37 10/28 Normal [facility] [facility] CHEMISTRY Bili Total 0.3 mg/dL 0.2 - 1.3 10/28 Normal [facility] CHEMISTRY Total Protein 6.2 g/dL 6.4 - 8.4 10/28 LOW [facility] CHEMISTRY ALT 23 unit/L 0 - 65 10/28 Normal [facility] CHEMISTRY Albumin Lvl 2.8 g/dL 3.5 - 5.0 10/28 LOW [facility] CHEMISTRY Alk Phos 85 unit/L 39 - 136 10/28 Normal [facility] CHEMISTRY Bili Direct 0.1 mg/dL 0.0 - 0.3 10/28 Normal [facility] HEMATOLOGY PTT 23.9 s 22.9 - 10/28 Normal 27Interpretiv [facility] 35.8 /2012 e Data: [facility] Therapeutic Range: 57 - 92 Seconds HEMATOLOGY PT 13.5 s 12.0 - 10/28 Normal [facility] 14.7 [facility] HEMATOLOGY INR 1.01 0.85 - 10/28 Normal 24Interpretive Data: RECOMMENDED RANGES FOR PROTIME INR: [facility] 1. 2.0-3.0 for most medical and surgical thromboembolic states. Medical 2.5-3.5 for artificial heart valves and recurrent embolism. Center INR SHOULD BE USED ONLY FOR PATIENTS ON STABLE ANTICOAGULANT THERAPY. VIRAL - Influ B Negative 6 Negative 10/28 Normal 6Interpretive [facility] SEROLOGY Data: Due Medical (10/27/2012 [...] - Influ A Negative Negative 10/28 Normal [facility] SEROLOGY Medical (10/27/2012 18:02:02) Center CHEMISTRY Vitamin D, 16 ng/mL 30 - 100 10/25 LOW 13Interpretive Data: Reference range is based on recommendations in the Endocrine [facility] 25-[place], /2013 Society Clinical Practice Guideline (J Clin Endocrinol Metab Medical 2011;96:3953-1754) Center CHEMISTRY Hgb A1C 8.4 % 10/25 NA 21Interpretive Data: HbA1C% eAG( mg/dL) Interpretation 6.0 126 Very good control [facility] 6.5 140 Very good control [place] 7.0 154 Good Control 7.5 169 Good Control 8.0 183 Marginal Control, take action to lower 8.5 197 Marginal Control, take action to lower 9.0 212 Poor Control, take action to lower 9.5 226 Poor Control, take action to lower 10.0 240 Poor Control, take action to lower CHEMISTRY LDL 87 mg/dL 0 - 129 10/25 Normal [facility] CHEMISTRY HDL 35 mg/dL >=35 10/25 Normal [facility] CHEMISTRY Trig 101 mg/dL 0 - 200 10/25 Normal [facility] CHEMISTRY Chol 142 mg/dL 120 - 200 10/25 Normal [facility] CHEMISTRY CHD Risk 4.06 3.90 - 10/25 Normal [facility] 5.80 [facility] CHEMISTRY Troponin-I 5.43 ng/mL 0.00 - 10/25 CRIT 18Result [facility] 0.40 Comment: Medical Critical Center Result(s) called to Jelani Rasmussen at 10/25/2012 00:47:48 LABOR COMMISSIONER by ISAAC. Read back OK. CHEMISTRY Troponin-T 0.693 0.000 - 10/25 CRIT 15Result [facility] ng/mL 0.100 /2012 Comment: Medical Critical Center Result(s) called to daisy otoole at 10/25/2012 01:18:09 LABOR COMMISSIONER by tac. Read back OK. HEMATOLOGY Basophils # 0.2 K/CMM 0.0 - 0.2 10/25 Normal [facility] HEMATOLOGY Plt Morph Normal 10/25 Normal Medical (10/25/2012 00:15:00) Center CHEMISTRY ALT 15 unit/L 0 - 65 10/24 Normal [facility] CHEMISTRY Albumin Lvl 2.7 g/dL 3.5 - 5.0 10/24 LOW [facility] CHEMISTRY Bili Total 0.5 mg/dL 0.2 - 1.3 10/24 Normal [facility] CHEMISTRY Alk Phos 83 unit/L 39 - 136 10/24 Normal [facility] CHEMISTRY Bili Direct 0.2 mg/dL 0.0 - 0.3 10/24 Normal [facility] CHEMISTRY Total Protein 5.8 g/dL 6.4 - 8.4 10/24 LOW [facility] CHEMISTRY AST 41 unit/L 0 - 37 10/24 HI [facility] CHEMISTRY Bili Indirect 0.3 mg/dL 0.0 - 1.0 10/24 Normal [facility] CHEMISTRY Globulin 3.1 g/dL 2.0 - 4.0 10/24 Normal [facility] CHEMISTRY A/G Ratio 0.9 0.7 - 1.6 10/24 Normal [facility] CHEMISTRY POC A Mode NC-3LPM 10/24 NA [facility] CHEMISTRY POC A HCO3 19 mMol/L 22 - 26 10/24 LOW [facility] CHEMISTRY POC A O2 Sat 98.0 % 95.0 - 10/24 Normal [facility] 100.0 [facility] CHEMISTRY POC A BE -6 mMol/L -2-2 - 2 10/24 LOW [facility] CHEMISTRY POC A PO2 103 mm[Hg] 80 - 100 10/24 HI [facility] CHEMISTRY POC A pH 7.35 7.35 - 10/24 [facility] 7.45 [facility] CHEMISTRY POC A PCO2 34 mm[Hg] 35 - 45 10/24 LOW Medical Center CHEMISTRY POC A Temp 37.0 Abby 10/24 NA Medical Center CHEMISTRY POC A Source ART 10/24 NA [facility] Center CHEMISTRY Troponin-T 0.688 0.000 - 10/24 CRIT 16Result [facility] ng/mL 0.100 Comment: Medical Critical Center Result(s) called to Maribel Bustos at 10/24/2012 13:23:46 LABOR COMMISSIONER by lwb . Read back OK. CHEMISTRY Troponin-I 7.61 ng/mL 0.00 - 10/24 CRIT 19Result [facility] 0.40 Comment: Medical Critical Center Result(s) called to mariana bustos at _ 10/24/2012 13:37:22 CSTby_lss. Read back OK. CHEMISTRY Total CK 150 unit/L - 10/24 Normal [facility] CHEMISTRY Lactic Acid 0.7 mMol/L 0.5 - 2.2 10/24 Normal [facility] Lvl Medical Center CHEMISTRY CK MB Index 11.0 0.0 - 2.5 10/24 HI [facility] Center CHEMISTRY CK MB 16.5 ng/mL 0.5 - 3.6 10/24 HI Medical Center CHEMISTRY Troponin-T 0.750 0.000 - 10/24 CRIT 17Result [facility] ng/mL 0.100 Comment: Medical Critical Center Result(s) called to Lyn King at 10/24/2012 09:52:38 LABOR COMMISSIONER by lwb . Read back OK. CHEMISTRY Troponin-I 7.60 ng/mL 0.00 - 10/24 CRIT 20Result [facility] 0.40 Comment: Medical Critical Center Result(s) called to romero beltre at _10/24/2012 09:50:18 LABOR COMMISSIONER by_lss. Read back OK. CHEMISTRY Total CK 170 unit/L 12 - 10/24 Normal 14Result Comment: Medical Specimen Center Moderately Hemolyzed. CHEMISTRY CK MB Index 10.5 0.0 - 2.5 10/24 HI [facility] Center CHEMISTRY CK MB 17.8 ng/mL 0.5 [...] 0.6 mMol/L 0.5 - 2.2 10/24 Normal [facility] Center CHEMISTRY POC V O2 [...] 0.6 mMol/L 0.5 - 2.2 10/23 Normal [facility] Center Microbiolog Culture: 10/23 y Blood [...] mMol/L -2-2 - 2 10/23 LOW MH [facility] CHEMISTRY POC A O2 Sat 99.0 % 95.0 - 10/23 [facility] 100.0 [facility] CHEMISTRY POC A Hct 35.0 % 36.0 - 10/23 LOW [facility] 48.0 [facility] CHEMISTRY POC A HCO3 20 mMol/L 22 - 26 10/23 LOW [facility] CHEMISTRY POC A PCO2 36 mm[Hg] 35 - 45 10/23 Normal [facility] CHEMISTRY POC A LA 0.6 mMol/L 0.5 - 2.2 10/23 Normal [facility] CHEMISTRY POC A Ca Ion 1.20 1.16 - 10/23 [facility] mMol/L 1.30 [facility] CHEMISTRY POC A Na 133 meq/L 135 - 145 10/23 LOW [facility] CHEMISTRY POC A K 3.8 meq/L 3.5 - 5.1 10/23 Normal [facility] CHEMISTRY A/G Ratio 0.8 0.7 - 1.6 10/23 Normal [facility] CHEMISTRY AST 90 unit/L 0 - 37 10/23 HI [facility] CHEMISTRY Globulin 3.9 g/dL 2.0 - 4.0 10/23 Normal [facility] CHEMISTRY B/C Ratio 16 6 - 25 10/23 Normal [facility] CHEMISTRY Total Protein 7.2 g/dL 6.4 - 8.4 10/23 Normal [facility] CHEMISTRY Bili Total 0.5 mg/dL 0.2 - 1.3 10/23 Normal [facility] CHEMISTRY Albumin Lvl 3.3 g/dL 3.5 - 5.0 10/23 LOW [facility] CHEMISTRY Alk Phos 94 unit/L 39 - 136 10/23 Normal [facility] CHEMISTRY ALT 23 unit/L 0 - 65 10/23 Normal [facility] CHEMISTRY Osmolality 292 280 - 300 10/23 Normal [facility] mOsm/kg [facility] CHEMISTRY Myoglobin 128 ng/mL 25 - 72 10/23 HI [facility] Microbiolog Culture: 10/23 [facility] y [facility] Screen BACTERIAL - MRSA by PCR Positive 1, 2 10/23 ABN 2Interpretive Data: Interpretive Data: The [employer] LightCycler MRSA assay is a qualitative test for the direct detection of nasal colonization with methicillin-resistant Staphylococcus aureus (MRSA) to aid [facility] in the prevention and control of MRSA infections in healthcare settings. A positive result does not indicate an infection or require treatment. A negative result does not exclude colonization or infection. Medical *[facility]* Center The polymerase chain reaction (PCR) assay detects a proprietary sequence indicative of the integration of the SCCmec cassette into the Staphylococcus aureus chromosome, indicating the presence of MRSA D (10/23/2012 11:37:00) NA. The assay utilizes FDA cleared IVD reagents. Performance characteristics have been verified by the Molecular Diagnostic Laboratory within the [facility]. The Molecular Diagnostic Labor atory is authorized under the Clinical Laboratory Improvement Amendment of 1988 (CLIA-88) to perform high complexity testing. CHEMISTRY Osmolality 309 280 - 300 10/23 [facility] mOsm/kg [facility] CHEMISTRY POC A Hct 37.0 % 36.0 - 10/23 [facility] 48.0 [facility] CHEMISTRY POC A Na 129 meq/L 135 - 145 10/23 LOW [facility] CHEMISTRY POC A LA 1.0 mMol/L 0.5 - 2.2 10/23 Normal [facility] CHEMISTRY POC A K 4.5 meq/L 3.5 - 5.1 10/23 Normal [facility] CHEMISTRY POC A Glu null 70 - 99 10/23 CRIT [facility] CHEMISTRY POC A Ca Ion 1.18 1.16 - 10/23 Normal [facility] mMol/L 1.30 [facility] CHEMISTRY POC A PCO2 30 mm[Hg] 35 - 45 10/23 CRIT [facility] CHEMISTRY POC A PO2 123 mm[Hg] 80 - 100 10/23 HI [facility] CHEMISTRY POC A Temp 37.0 Abby 10/23 NA [facility] CHEMISTRY POC A HCO3 14 mMol/L 22 - 26 10/23 [facility] CHEMISTRY POC A Source ART 10/23 NA [facility] CHEMISTRY POC A pH 7.27 7.35 - 10/23 LOW [facility] 7.45 [facility] CHEMISTRY POC A BE -12 mMol/L -2-2 - 2 10/23 [facility] CHEMISTRY POC A O2 Sat 98.0 % 95.0 - 10/23 Normal [facility] 100.0 [facility] CHEMISTRY Bili Direct 0.4 mg/dL 0.0 - 0.3 10/23 HI [facility] CHEMISTRY Lipase Lvl 54 unit/L 73 - 393 10/23 LOW [facility] CHEMISTRY Amylase Lvl 28 unit/L 25 - 115 10/23 Normal [facility] CHEMISTRY B/C Ratio 10 6 - 25 10/23 Normal [facility] BLOOD BANK Antibody Scrn Negative 10/23 Normal [facility] Medical (10/23/2012 01:00:00) Center BLOOD BANK ABO/Rh A POS 10/23 Unknown [facility] URINALYSIS UA <=1.0 0.1 - 1.0 10/23 NA [facility] Urobilinogen mg/dL Medical
*NA*< Center br/>(10/23 00:01:00) <sup> </sup> URINALYSIS UA Sq Epi Moderate /LPF Few 10/23 ABN Medical *ABN* Center (10/23/2012 00:01:00) URINALYSIS UA Leuk Est Negative Negative 10/23 Normal [facility] (10/23/2012 00:01:00) Center URINALYSIS UA Nitrite Negative Negative 10/23 Normal [facility] (10/23/2012 00:01:00) Center URINALYSIS UA Blood Negative Negative 10/23 Normal [facility] (10/23/2012 00:01:00) Center URINALYSIS UA Glucose >=1000 mg/dL Negative 10/23 ABN Medical *ABN* [facility] (10/23/2012 00:01:00) URINALYSIS UA Protein 10 mg/dL Negative 10/23 ABN Medical *ABN* [place] (10/23/2012 00:01:00) URINALYSIS UA pH 5.0 5.0 - 8.0 10/23 Normal [facility] URINALYSIS UA WBC 1 /HPF 0 - 5 10/23 Normal [facility] URINALYSIS UA Bili Negative Negative 10/23 NA Medical *NA* [place] (10/23/2012 00:01:00) URINALYSIS UA Ketones >=150 mg/dL Negative 10/23 ABN Medical *ABN* Center (10/23/2012 00:01:00) URINALYSIS UA Spec Grav 1.015 <=1.030 10/23 Normal [facility] URINALYSIS UA Turbidity Clear Clear 10/23 Normal Medical (10/23/2012 00:01:00) Center URINALYSIS UA Color Light Yellow Yellow 10/23 NA Medical *NA* Center (10/23/2012 00:01:00) BEDSIDE Gluc POC 265 mg/dL 70 - 99 10/08 HI 1Interpretive [facility] GLUCOSE Lifsc Data: [facility] TESTING Center Upper Reportable Limit: 200 mg/dL. BEDSIDE Comment1 Notify 10/08 [facility] GLUCOSE RN/MD /2012 [facility] TESTING Center BEDSIDE Comment1 Notify 10/08 NA [facility] GLUCOSE RN/MD [facility] TESTING Center BEDSIDE Gluc POC 204 mg/dL 70 - 99 10/08 HI 2Interpretive [facility] GLUCOSE Lifne Data: [facility] TESTING [facility] Center Upper Reportable Limit: 200 mg/dL. CHEMISTRY Phosphorus 2.7 mg/dL 2.5 - 4.5 10/08 Normal [facility] CHEMISTRY Magnesium Lvl 1.6 mg/dL 1.8 - 2.4 10/08 LOW [facility] CHEMISTRY Ca Ion 1.17 1.16 - 02 Normal [facility] mMol/L 1. [facility] CHEMISTRY Ca Norm 1.18 1.16 - 10/08 Normal [facility] mMol/L 1. [facility] CHEMISTRY Ca Ion mgdL 4.68 mg/dL 4.65 - 10/08 Normal [facility] 5.20 [facility] CHEMISTRY Ca Norm mgdL 4.72 mg/dL 4.65 - 02 Normal [facility] 5.20 [facility] CHEMISTRY AGAP 17.6 meq/L 10.0 - 10/08 Normal [facility] 20.0 [facility] CHEMISTRY eGFR 109 10/08 NA 4Result Comment: The eGFR is calculated using the CKD-EPI formula. In most young, healthy individuals the eGFR will be > 90 mL/min/1.73m2. The eGFR declines with age. An eGFR of 60-89 may be normal in [facility] mL/min/1.7 some populations, particularly the elderly, for whom the CKD-EPI formula has not been extensively validated. Use of the eGFR is not recommended in the following populations: [place] [address] Center Individuals with unstable creatinine concentrations, including [...] 24 meq/L 24 - 32 10/08 Normal [facility] CHEMISTRY Calcium Lvl 8.5 mg/dL 8.5 - 10.5 10/08 Normal [facility]2012 [facility] CHEMISTRY Potassium Lvl 3.6 meq/L 3.5 - 5.1 10/08 Normal [facility]2012 [facility] CHEMISTRY Chloride Lvl 96 meq/L 95 - 109 10/[address] CHEMISTRY Creatinine 0.6 mg/dL 0.5 - 1.4 10/08 Normal [facility]2012 [facility] CHEMISTRY Sodium Lvl 134 meq/L 135 - 145 10/[address] CHEMISTRY Glucose Lvl 129 mg/dL 70 - 99 10/08 HI 7Interpretive Data: Adult reference range values reflect the clinical guidelines of the [place] [employer]. [facility] CHEMISTRY BUN 4 mg/dL 7 - 22 10/[address] HEMATOLOGY Monocytes # 1.1 K/CMM 0.0 - 0.8 10/08 HI [facility]2012 [facility] HEMATOLOGY Eosinophils # 0.3 K/CMM 0.0 - 0.5 10/08 Normal [facility]2012 [facility] HEMATOLOGY Basophils # 0.1 K/CMM 0.0 - 0.2 10/[address] HEMATOLOGY Microcyte 1+ None Seen 10/08 ABN Medical *ABN* Center (10/08/2012 03:57:00) HEMATOLOGY Segs 55.7 % 45.0 - 02 Normal [facility] 75.0 [facility] HEMATOLOGY Lymphocytes 31.3 % 20.0 - 02 Normal [place] 40.0 [facility] HEMATOLOGY Monocytes 10.0 % 2.0 - 12.0 10/08 Normal [facility]2012 [facility] HEMATOLOGY Eosinophils 2.5 % 0.0 - 4.0 02 Normal [facility] HEMATOLOGY Segs-Bands # 6.1 K/CMM 1.5 - 8.1 02/ Normal [facility] HEMATOLOGY Basophils 0.5 % 0.0 - 1.0 02/ Normal [facility] HEMATOLOGY Lymphocytes # 3.4 K/CMM 1.0 - 5.5 02 Normal [facility] HEMATOLOGY RDW 16.9 % 11.5 - 02 HI [facility] 14.5 /2012 [facility] HEMATOLOGY Platelet 218 K/CMM 133 - 450 02 Normal [facility] HEMATOLOGY WBC 10.9 K/CMM 3.7 - 10.4 10/08 HI [facility] HEMATOLOGY RBC 4.35 M/CMM 4.20 - 10/08 Normal [facility] 5.40 [facility] HEMATOLOGY MPV 9.7 fL 7.4 - 10.4 10/08 Normal [facility] HEMATOLOGY Hgb 10.4 g/dL 12.0 - 10/08 LOW [facility] 16.0 [facility] HEMATOLOGY Hct 32.7 % 36.0 - 02 [facility] 48.0 /2012 [facility] HEMATOLOGY MCHC 31.8 g/dL 32.0 - 02 [facility] 36.0 /2012 [facility] HEMATOLOGY MCV 75.2 fL 81.0 - 02 [facility] 99.0 /2012 [facility] HEMATOLOGY MCH 23.9 pg 27.0 - 10/08 [facility] 31.0 [facility] BEDSIDE Comment1 Notify 10/08 NA [facility] GLUCOSE RN/MD /2012 Medical TESTING Center BEDSIDE Gluc POC 247 mg/dL 70 - 99 10/08 HI 3Interpretive [facility] GLUCOSE Lifscn Data: Medical TESTING Center Upper Reportable Limit: 200 mg/dL. CHEMISTRY Magnesium Lvl 2.1 mg/dL 1.8 - 2.4 10/07 Normal [facility] CHEMISTRY Ca Norm 1.16 1.16 - 02 Normal [facility] mMol/L 1.30 [facility] CHEMISTRY Ca Ion mgdL 4.72 mg/dL 4.65 - 10/07 Normal [facility] 5. [facility] CHEMISTRY Ca Norm mgdL 4.64 mg/dL 4.65 - 10/07 LOW [facility] 5. [facility] CHEMISTRY Ca Ion 1.18 1.16 - 02 Normal [facility] mMol/L 1.30 [facility] CHEMISTRY Phosphorus 2.6 mg/dL 2.5 - 4.5 10/07 Normal [facility] CHEMISTRY Calcium Lvl 8.1 mg/dL 8.5 - 10.5 10/07 LOW [facility] CHEMISTRY AGAP 19.4 meq/L 10.0 - 10/07 Normal [facility] 20.0 [facility] CHEMISTRY eGFR 116 10/07 NA 5Result Comment: The eGFR is calculated using the CKD-EPI formula. In most young, healthy individuals the eGFR will be > 90 mL/min/1.73m2. The eGFR declines with age. An eGFR of 60-89 may be normal in [facility] mL/min/1.7 some populations, particularly the elderly, for whom the CKD-EPI formula has not been extensively validated. Use of the eGFR is not recommended in the following populations: [place] [address] Center Individuals with unstable creatinine concentrations, including [...] 6 mg/dL 7 - 22 10/07 LOW [facility] CHEMISTRY Glucose Lvl 99 mg/dL 70 - 99 10/07 Normal 8Interpretive Data: Adult reference range values reflect the clinical guidelines of the [place] [employer]. [facility] CHEMISTRY Creatinine 0.5 mg/dL 0.5 - 1.4 10/07 Normal [facility] Lvl [facility] CHEMISTRY Potassium Lvl 3.4 meq/L 3.5 - 5.1 10/07 LOW [facility] CHEMISTRY Sodium Lvl 135 meq/L 135 - 145 10/07 Normal [facility] CHEMISTRY CO2 24 meq/L 24 - 32 10/07 Normal [facility] CHEMISTRY Chloride Lvl 95 meq/L 95 - 109 10/07 Normal [facility] HEMATOLOGY MCHC 31.8 g/dL 32.0 - 10/07 LOW [facility] 36.0 [facility] HEMATOLOGY MCH 24.1 pg 27.0 - 10/07 [facility] 31.0 /2012 [facility] HEMATOLOGY MCV 75.7 fL 81.0 - 02 [facility] 99.0 /2012 [facility] HEMATOLOGY Hct 31.0 % 36.0 - 02 [facility] 48.0 /2012 [facility] HEMATOLOGY Hgb 9.9 g/dL 12.0 - 02/ [facility] 16.0 /2012 [facility] HEMATOLOGY MPV 9.1 fL 7.4 - 10.4 02 Normal [facility] HEMATOLOGY Platelet 222 K/CMM 133 - 450 02 Normal [facility] HEMATOLOGY RDW 16.8 % 11.5 - 02 [facility] 14.5 /2012 [facility] HEMATOLOGY RBC 4.10 M/CMM 4.20 - 02 [facility] 5.40 /2012 [facility] HEMATOLOGY WBC 13.8 K/CMM 3.7 - 10.4 10/07 [facility] HEMATOLOGY Segs-Bands # 9.6 K/CMM 1.5 - 8.1 10/07 [facility] HEMATOLOGY Basophils 0.3 % 0.0 - 1.0 02 Normal [facility] HEMATOLOGY Eosinophils 1.0 % 0.0 - 4.0 02 [facility] HEMATOLOGY Microcyte 1+ None Seen 10/07 [facility] Center (10/07/2012 03:25:00) HEMATOLOGY Lymphocytes # 2.9 K/CMM 1.0 - 5.5 10/07 [facility] HEMATOLOGY Eosinophils # 0.1 K/CMM 0.0 - 0.5 10/07 [facility] HEMATOLOGY Monocytes # 1.2 K/CMM 0.0 - 0.8 02 [facility] HEMATOLOGY Monocytes 8.8 % 2.0 - 12.0 10/07 [facility] HEMATOLOGY Lymphocytes 20.8 % 20.0 - 02 [facility] 40.0 [facility] HEMATOLOGY Segs 69.1 % 45.0 - 02 [facility] 75.0 [facility] URINALYSIS UA Glucose 500mg/dL 10/06 NA [facility] URINALYSIS UA <=1.0 0.1 - 1.0 10/06 NA [facility] Urobilinogen mg/dL /2012 Medical
*NA*< Center br/>(10/06 11:42:00) <sup> </sup> URINALYSIS Micro? Performed 10/06 NA [facility] *NA* Center (10/06/2012 11:42:00) URINALYSIS UA [place] Yeast Moderate /HPF None Seen 10/06 [facility] *ABN* Center (10/06/2012 11:42:00) URINALYSIS UA RBC 3 /HPF 0 - 2 10/06 HI [facility] URINALYSIS UA Bacteria Many /HPF None Seen 10/06 [facility] *ABN* [facility] (10/06/2012 11:42:00) URINALYSIS UA WBC 3 /HPF 0 - 5 10/06 Normal 2012 [facility] URINALYSIS UA Leuk Est Negative Negative 10/06 Normal [facility] (10/06/2012 11:42:00) Center URINALYSIS UA Nitrite Negative Negative 10/06 Normal [facility] (10/06/2012 11:42:00) Center URINALYSIS UA Sq Epi Many /LPF Few 10/06 [facility] *ABN* [place] (10/06/2012 11:42:00) URINALYSIS UA Bili Negative Negative 10/06 NA [facility] *NA* [place] (10/06/2012 11:42:00) URINALYSIS UA Blood Negative Negative 10/06 Normal [facility] (10/06/2012 11:42:00) Center URINALYSIS UA pH 5.5 5.0 - 8.0 10/06 Normal [facility] URINALYSIS UA Protein 20 mg/dL Negative 10/06 ABN [facility] *ABN* Center (10/06/2012 11:42:00) URINALYSIS UA Ketones >=150 mg/dL Negative 10/06 [facility] *ABN* Center (10/06/2012 11:42:00) URINALYSIS UA Color Yellow Yellow 10/06 NA [facility] *NA* Center (10/06/2012 11:42:00) URINALYSIS UA Turbidity Slight Clear 10/06 ABN [facility] *ABN* Center (10/06/2012 11:42:00) URINALYSIS UA Spec Grav 1.011 <=1.030 10/06 Normal [facility] URINALYSIS UA Mucus Few /LPF None Seen 10/06 NA [facility] *NA* [place] (10/06/2012 11:42:00) Microbiolog Culture: 10/06 [facility] y [facility] CHEMISTRY Phosphorus 2.5 mg/dL 2.5 - 4.5 10/06 Normal [facility] CHEMISTRY Magnesium Lvl 1.5 mg/dL 1.8 - 2.4 10/06 LOW [facility] CHEMISTRY eGFR 76 10/06 NA 6Result Comment: The eGFR is calculated using the CKD-EPI formula. In most young, healthy individuals the eGFR will be > 90 mL/min/1.73m2. The eGFR declines with age. An eGFR of 60-89 may be normal in [facility] mL/min/1. some populations, particularly the elderly, for whom the CKD-EPI formula has not been extensively validated. Use of the eGFR is not recommended in the following populations: [address] Individuals with unstable creatinine concentrations, including [...] 3.9 meq/L 3.5 - 5.1 10/06 Normal [facility] CHEMISTRY Chloride Lvl 97 meq/L 95 - 109 10/06 Normal [facility] CHEMISTRY Calcium Lvl 8.3 mg/dL 8.5 - 10.5 10/06 LOW [facility] CHEMISTRY CO2 22 meq/L 24 - 32 10/06 LOW [facility] CHEMISTRY Glucose Lvl 234 mg/dL 70 - 99 10/06 HI 9Interpretive Data: Adult reference range values reflect the clinical guidelines of the [place] [employer]. [facility] CHEMISTRY Creatinine 0.9 mg/dL 0.5 - 1.4 10/06 Normal [facility] CHEMISTRY BUN 9 mg/dL 7 - 22 10/06 Normal [facility] CHEMISTRY Sodium Lvl 134 meq/L 135 - 145 10/06 LOW [facility] CHEMISTRY AGAP 18.9 meq/L 10.0 - 10/06 Normal [place] 20.0 [facility] HEMATOLOGY Segs-Bands # 13.3 K/CMM 1.5 - 8.1 10/06 HI [facility] HEMATOLOGY Basophils 0.2 % 0.0 - 1.0 10/06 Normal [facility] HEMATOLOGY Eosinophils 0.1 % 0.0 - 4.0 10/06 Normal [facility] HEMATOLOGY Monocytes 6.7 % 2.0 - 12.0 10/06 Normal [facility] HEMATOLOGY Segs 81.7 % 45.0 - 10/06 [facility] [place] 75.0 [facility] HEMATOLOGY Lymphocytes 11.3 % 20.0 - 10/06 [facility] [place] 40.0 [facility] HEMATOLOGY Microcyte 1+ None Seen 10/06 ABN Medical *ABN* Center (10/06/2012 04:25:00) HEMATOLOGY Monocytes # 1.1 K/CMM 0.0 - 0.8 10/06 HI [facility] HEMATOLOGY Lymphocytes # 1.8 K/CMM 1.0 - 5.5 10/06 Normal [facility] HEMATOLOGY RBC 4.28 M/CMM 4.20 - 10/06 Normal [place] 5.40 /2012 [facility] HEMATOLOGY WBC 16.3 K/CMM 3.7 - 10.4 10/06 [facility] HEMATOLOGY Hgb 10.3 g/dL 12.0 - 10/06 [facility] [place] 16.0 [facility] HEMATOLOGY Hct 32.6 % 36.0 - 10/06 [facility] [place] 48.0 /2012 [facility] HEMATOLOGY MCH 24.0 pg 27.0 - 10/06 LOW [place] 31.0 [facility] HEMATOLOGY MCV 76.1 fL 81.0 - 10/06 [facility] [place] 99.0 /2012 [facility] HEMATOLOGY MCHC 31.5 g/dL 32.0 - 10/06 [facility] [place] 36.0 [facility] HEMATOLOGY RDW 17.2 % 11.5 - 10/06 [facility] [place] 14.5 /2012 [facility] HEMATOLOGY Platelet 248 K/CMM 133 - 450 10/06 Normal [facility] HEMATOLOGY MPV 9.5 fL 7.4 - 10.4 10/06 Normal [facility] CHEMISTRY Ca Norm 1.07 1.16 - 10/05 LOW [facility] mMol/L 1. [facility] CHEMISTRY Ca Ion mgdL 4.36 mg/dL 4.65 - 10/05 LOW [place] 5. [facility] CHEMISTRY Ca Norm mgdL 4.28 mg/dL 4.65 - 10/05 LOW [facility] 5. [facility] CHEMISTRY Ca Ion 1.09 1.16 - 10/05 LOW [facility] mMol/L . [facility] HEMATOLOGY Basophils # 0.1 K/CMM 0.0 - 0.2 10/05 Normal [facility] HEMATOLOGY Eosinophils # 0.1 K/CMM 0.0 - 0.5 10/05 Normal [facility] CHEMISTRY U Preg Negative Negative 10/03 Normal Medical (10/03/2012 06:31:00) Center BLOOD BANK ABO/Rh A POS 10/03 Unknown [facility] BLOOD BANK Antibody Scrn Negative 10/03 Normal [facility] Medical (10/03/2012 06:00:00) Center CHEMISTRY Total Protein 7.8 g/dL 6.4 - 8.4 09/23 Normal [facility] CHEMISTRY AST 31 unit/L 0 - 37 09/23 Normal [facility] CHEMISTRY Bili Total 0.3 mg/dL 0.2 - 1.3 09/23 Normal [facility] CHEMISTRY ALT 50 unit/L 0 - 65 09/23 Normal [facility] CHEMISTRY Albumin Lvl 3.6 g/dL 3.5 - 5.0 09/23 Normal [facility] CHEMISTRY Alk Phos 150 unit/L 39 - 136 09/23 HI [facility] CHEMISTRY B/C Ratio 21 6 - 25 09/23 Normal [facility] CHEMISTRY Globulin 4.2 g/dL 2.0 - 4.0 09/23 [facility] CHEMISTRY A/G Ratio 0.9 0.7 - 1.6 09/23 Normal [facility] HEMATOLOGY Hypochrom Slight None Seen 09/23 Normal Medical (09/23/2012 12:35:00) Center HEMATOLOGY Elliptocyte Slight None Seen 09/23 ABN [facility] *ABN* Center (09/23/2012 12:35:00) HEMATOLOGY Basophils # 0.1 K/CMM 0.0 - 0.2 09/23 Normal [facility] HEMATOLOGY Plt Morph Normal 09/23 Normal [facility] (09/23/2012 12:35:00) Center URINALYSIS UA <=1.0 0.1 - 1.0 09/23 NA [facility] Urobilinogen mg/dL /2012 Medical
*NA*< Center br/>(09/23 12:35:00) <sup> </sup> URINALYSIS UA Nitrite Negative Negative 09/23 Normal [facility] (09/23/2012 12:35:00) Center URINALYSIS UA Blood Negative Negative 09/23 Normal [facility] (09/23/2012 12:35:00) Center URINALYSIS UA Leuk Est Negative Negative 09/23 Normal [facility] (09/23/2012 12:35:00) Center URINALYSIS Micro? Not Indicated 09/23 NA [facility] *NA* [place] (09/23/2012 12:35:00) URINALYSIS UA Ketones Negative mg/dL Negative 09/23 [facility] *NA* [place] (09/23/2012 12:35:00) URINALYSIS UA Bili Negative Negative 09/23 [facility] *NA* [place] (09/23/2012 12:35:00) URINALYSIS UA Protein Negative mg/dL Negative 09/23 Normal [facility] (09/23/2012 12:35:00) Center URINALYSIS UA pH 5.0 5.0 - 8.0 09/23 Normal [facility] Center URINALYSIS UA Glucose Negative mg/dL Negative 09/23 [facility] *NA* [place] (09/23/2012 12:35:00) URINALYSIS UA Color Light Yellow Yellow 09/23 NA [facility] *NA* [place] (09/23/2012 12:35:00) URINALYSIS UA Spec Grav 1.004 <=1.030 09/23 Normal [facility] URINALYSIS UA Turbidity Clear Clear 09/23 Normal [facility] (09/23/2012 12:35:00) Center BEDSIDE Gluc POC 153 mg/dL 70 - 99 06/28 HI 1Interpretive [facility] GLUCOSE Lifsc Data: Medical TESTING Center Upper Reportable Limit: 200 mg/dL. CHEMISTRY U Preg Negative Negative 06/28 Normal Medical (06/28/2012 07:27:00) Center Vital Signs Vital Sign Value Date Comments Source Systolic (mm Hg) 124 08/13/2013 [facility] Respitory Rate 18 08/13/2013 [facility] Temperature Oral (F) 98.8 F 08/13/2013 [facility] Heart Rate 102 08/13/2013 [facility] Diastolic (mm Hg) 46 08/13/2013 [facility] Systolic (mm Hg) 107 08/13/2013 [facility] Respitory Rate 18 08/13/2013 [facility] Diastolic (mm Hg) 63 08/13/2013 [facility] Heart Rate 103 08/13/2013 [facility] Heart Rate 105 08/13/2013 [facility] Respitory Rate 18 08/13/2013 [facility] Systolic (mm Hg) 117 08/13/2013 [facility] Diastolic (mm Hg) 70 08/13/2013 [facility] Weight 81.818 08/13/2013 [facility] Height 162.56 cm 08/13/2013 [facility] Temperature Oral (F) 98.4 F 08/13/2013 [facility] Diastolic (mm Hg) 61 07/15/2013 [facility] Temperature Oral (F) 97.7 F 07/15/2013 [facility] Systolic (mm Hg) 117 07/15/2013 [facility] Respitory Rate 18 07/15/2013 [facility] Heart Rate 90 07/15/2013 [facility] Respitory Rate 18 07/14/2013 [facility] Heart Rate 104 07/14/2013 [facility] Diastolic (mm Hg) 46 07/14/2013 [facility] Systolic (mm Hg) 91 07/14/2013 [facility] Diastolic (mm Hg) 61 07/14/2013 [facility] Systolic (mm Hg) 95 07/14/2013 [facility] Respitory Rate 18 07/14/2013 [facility] Heart Rate 120 07/14/2013 [facility] Temperature Oral (F) 97.5 F 07/14/2013 [facility] Temperature Oral (F) 97.6 F 07/14/2013 [facility] Height 162.56 cm 07/12/2013 [facility] Weight 86.364 07/12/2013 [facility] Temperature Oral (F) 97.1 F 04/03/2013 [facility] Respitory Rate 18 04/03/2013 [facility] Heart Rate 79 04/03/2013 [facility] Diastolic (mm Hg) 66 04/03/2013 [facility] Center Systolic (mm Hg) 94 04/03/2013 [facility] Diastolic (mm Hg) 28 04/03/2013 [facility] Systolic (mm Hg) 116 04/03/2013 [facility] Center Respitory Rate 20 04/03/2013 [facility] Heart Rate 100 04/03/2013 [facility] Temperature Oral (F) 97.0 F 04/03/2013 [facility] Height 162.56 cm 04/03/2013 [facility] Weight 90 04/03/2013 [facility] Height 162.56 cm 04/02/2013 [facility] Weight 90 04/02/2013 [facility] Systolic (mm Hg) 132 03/09/2013 [facility] Diastolic (mm Hg) 72 03/09/2013 [facility] Heart Rate 114 03/09/2013 [facility] Temperature Oral (F) 97.7 F 03/09/2013 [facility] Respitory Rate 20 03/09/2013 [facility] Temperature Oral (F) 97.7 F 03/09/2013 [facility] Heart Rate 108 03/09/2013 [facility] Systolic (mm Hg) 143 03/09/2013 [facility] Respitory Rate 18 03/09/2013 [facility] Diastolic (mm Hg) 81 03/09/2013 [facility] Heart Rate 115 03/09/2013 [facility] Diastolic (mm Hg) 70 03/09/2013 [facility] Systolic (mm Hg) 153 03/09/2013 [facility] Respitory Rate 18 03/09/2013 [facility] Temperature Oral (F) 97.5 F 03/09/2013 [facility] Weight 90 03/07/2013 [facility] Height 162.56 cm 03/07/2013 [facility] Height 162.56 cm 03/06/2013 [facility] Weight 90 03/06/2013 [facility] Systolic (mm Hg) 127 12/07/2012 [facility] Diastolic (mm Hg) 49 12/07/2012 [facility] Heart Rate 90 12/07/2012 [facility] Temperature Oral (F) 98.3 F 12/07/2012 [facility] Respitory Rate 18 12/07/2012 [facility] Systolic (mm Hg) 104 12/07/2012 [facility] Temperature Oral (F) 98.6 F 12/07/2012 [facility] Respitory Rate 18 12/07/2012 [facility] Heart Rate 78 12/07/2012 [facility] Diastolic (mm Hg) 57 12/07/2012 [facility] Heart Rate 89 12/07/2012 [facility] Temperature Oral (F) 97.6 F 12/07/2012 [facility] Respitory Rate 18 12/07/2012 [facility] Systolic (mm Hg) 105 12/07/2012 [facility] Diastolic (mm Hg) 51 12/07/2012 [facility] Weight 100 11/29/2012 [facility] Height 162.56 cm 11/29/2012 [facility] Weight 100.568 11/29/2012 [facility] Height 162.56 cm 11/29/2012 [facility] Weight 101.364 11/28/2012 [facility] Height 162.56 cm 11/28/2012 [facility] Diastolic (mm Hg) 55 11/17/2012 [facility] Systolic (mm Hg) 117 11/17/2012 [facility] Diastolic (mm Hg) 70 11/17/2012 [facility] Systolic (mm Hg) 118 11/17/2012 [facility] Diastolic (mm Hg) 61 11/17/2012 [facility] Systolic (mm Hg) 154 11/17/2012 [facility] Temperature Oral (F) 97.8 F 11/17/2012 [facility] Temperature Oral (F) 97.9 F 11/17/2012 [facility] Temperature Oral (F) 98.6 F 11/17/2012 [facility] Height 162.56 cm 11/17/2012 [facility] Weight 103.21 11/17/2012 [facility] Respitory Rate 18 11/17/2012 [facility] Height 162.56 cm 11/16/2012 [facility] Weight 100 11/16/2012 [facility] Diastolic (mm Hg) 58 11/14/2012 [facility] Systolic (mm Hg) 121 11/14/2012 [facility] Respitory Rate 20 11/14/2012 [facility] Heart Rate 84 11/14/2012 [facility] Temperature Oral (F) 98.0 F 11/14/2012 [facility] Respitory Rate 20 11/14/2012 [facility] Systolic (mm Hg) 103 11/14/2012 [facility] Diastolic (mm Hg) 54 11/14/2012 [facility] Temperature Oral (F) 98.0 F 11/14/2012 [facility] Heart Rate 83 11/14/2012 [facility] Diastolic (mm Hg) 68 11/14/2012 [facility] Respitory Rate 20 11/14/2012 [facility] Heart Rate 79 11/14/2012 [facility] Systolic (mm Hg) 136 11/14/2012 [facility] Temperature Oral (F) 98.4 F 11/14/2012 [facility] Height 162.56 cm 11/06/2012 [facility] Weight 100 11/06/2012 [facility] Height 162.56 cm 11/06/2012 [facility] Weight 100 11/06/2012 [facility] Height 162.56 cm 11/06/2012 [facility] Weight 104.545 11/06/2012 [facility] Systolic (mm Hg) 131 11/01/2012 [facility] Diastolic (mm Hg) 62 11/01/2012 [facility] Systolic (mm Hg) 125 11/01/2012 [facility] Diastolic (mm Hg) 62 11/01/2012 [facility] Systolic (mm Hg) 155 10/31/2012 [facility] Diastolic (mm Hg) 54 10/31/2012 [facility] Temperature Oral (F) 99.7 F 10/31/2012 [facility] Temperature Oral (F) 96.7 F 10/31/2012 [facility] Temperature Oral (F) 98.1 F 10/31/2012 [facility] Respitory Rate 19 10/31/2012 [facility] Respitory Rate 19 10/31/2012 [facility] Respitory Rate 19 10/31/2012 [facility] Weight 78.2 10/24/2012 [facility] Heart Rate 126 10/23/2012 [facility] Heart Rate 130 10/23/2012 [facility] Weight 113.636 10/23/2012 [facility] Height 162.56 cm 10/23/2012 [facility] Heart Rate 119 10/23/2012 [facility] Height 162.56 cm 10/23/2012 [facility] Systolic (mm Hg) 123 10/08/2012 [facility] Respitory Rate 19 10/08/2012 [facility] Diastolic (mm Hg) 51 10/08/2012 [facility] Heart Rate 81 10/08/2012 [facility] Temperature Oral (F) 98.8 F 10/08/2012 [facility] Diastolic (mm Hg) 55 10/08/2012 [facility] Respitory Rate 20 10/08/2012 [facility] Systolic (mm Hg) 136 10/08/2012 [facility] Heart Rate 82 10/08/2012 [facility] Temperature Oral (F) 98.9 F 10/08/2012 [facility] Diastolic (mm Hg) 47 10/08/2012 [facility] Systolic (mm Hg) 107 10/08/2012 [facility] Temperature Oral (F) 98.1 F 10/08/2012 [facility] Respitory Rate 18 10/08/2012 [facility] Heart Rate 75 10/08/2012 [facility] Weight 118.200 10/03/2012 [facility] Height 162.56 cm 10/03/2012 [facility] Weight 118.182 09/23/2012 [facility] Height 162.56 cm 09/23/2012 [facility] Diastolic (mm Hg) 57 06/28/2012 [facility] Heart Rate 104 06/28/2012 [facility] Respitory Rate 18 06/28/2012 [facility] Systolic (mm Hg) 147 06/28/2012 [facility] Systolic (mm Hg) 153 06/28/2012 [facility] Diastolic (mm Hg) 61 06/28/2012 [facility] Respitory Rate 16 06/28/2012 [facility] Systolic (mm Hg) 136 06/28/2012 [facility] Diastolic (mm Hg) 52 06/28/2012 [facility] Respitory Rate 18 06/28/2012 [facility] Temperature Oral (F) 98.5 F 06/28/2012 [facility] Heart Rate 104 06/28/2012 [facility] Weight 118.182 06/14/2012 [facility] Height 162.56 cm 06/14/2012 [facility] Encounters Location Location Encounter Encounter Reason Attending ADM DC Status Source Details Type Number For Visit Provider Date Date [facility] DS [id number] DSU/ WOLFGANG 06/28 Active [facility] REFLUX SUSHILA /2011 [facility] Inpatient [id number] WOLFGANG 10/03 10/08 Active [facility] SUSHILA /2012 [facility] Inpatient [id number] N/V DARELL 10/23 11/01 Active [facility] DEHYDRATI SDRINGOLA- /2012 [facility] ON MARANGA [facility] Inpatient [id number] LAVONE 11/05 11/14 Active [facility] ROSE /2012 [facility] OU [id number] CHIP 11/16 11/17 Active [facility] MARKUS /2012 [facility] Inpatient [id number] JUAN J 11/29 12/07 Active [facility] Medical BRANDO /2012 [facility] OU [id number] SANJUANA 03/07 03/09 Active [facility] OSUAGWU /2012 [facility] OU [id number] JEANNIE 04/02 04/03 Active [facility] ADOLFO /2012 [facility] OU [id number] GASTROPAR JEANNIE 07/12 07/14 Active [facility] ESIS ADOLFO /2012 [facility] JACKIE [id number] WOLFGANG 07/26 07/27 Active [facility] SUSHILA /2012 [facility] Emergency [id number] KATELYN 08/13 08/13 Active [facility] TORYCZ /2012 [facility] Outpatient [id number] SERGO [facility] Procedures Procedure Code Date Perfomer Comments Source section [id number] [facility] Cholecystectomy [id number] [facility] <sup>1</sup> [facility] Hand repair [id number], x'2 [facility] <sup>2</sup> [facility] Tonsillectomy [id number] [facility] <sup>3</sup> [facility] Bypass of stomach [id number] [facility] Rotator cuff repair [id number] [facility] Heart procedure [id number] 1cardiac [facility] <sup>1</sup> stent for [facility]
[2019-01-29] MEDS ORDERED: ACETAMINOPHEN 500 MG TAB PO PRN (22:50)
--- OUTSIDE RECORDS SUMMARY | 2019-01-29 22:53 | XMS REPORT | CCD ---
:1965 Author Organization [facility] Care Team Providers Name Role Phone Sukhwinder Renteria Referring Provider Allergies, Adverse Reactions, Alerts Substance Reaction Status NKDA Active Problem List Condition Effective Dates Status Acid reflux Resolved Anemia Resolved Anxiety Resolved Arthritis Resolved Depression Resolved Diabetes mellitus type 1 Resolved Edema of lower extremity Resolved Fibromyalgia Resolved Hyperlipidemia Resolved Hypertension Resolved Medications Medication Instructions Start Date End Date Status Philipp 325 mg-10 mg / 15 mL, Route: [...] Duration: 30 day, Stop date: 11/02/12 10:59:00 Philipp 325 mg-10 mg / 30 mL, Route: PO, 10/04/2012 10/05/2012 Discontinued 15 mL oral solution Drug Form: SOLN, Dosing Weight 118.2, kg, Q4H, PRN Pain Score 6-10, Start date: 10/04/12 17:20:00, Duration: 30 day, Stop date: 11/03/12 17:19:00 Philipp 325 mg-10 mg / 15 mL, Route: [...] 14:28:00, PRN Blood Glucose Results Blistex Lip Mozelle Route: TOP, Dosing 10/06/2012 10/06/2012 Deleted Weight [...] /LPF] Few /LPF *NA* (10/06/2012 11:42:00) UA [place] Yeast [None Seen /HPF] Moderate /HPF *ABN* [...] the clinical guidelines of the [place] [employer].8Interpretive Data: Adult reference range values reflect the clinical guidelines of the [place] [employer].9Interpretive Data: Adult reference range values reflect the clinical guidelines of the [place] [employer].HEMATOLOGY Most recent to oldest 1 [...] Catch FREE TEXT SOURCE: FINAL REPORTS Final Rfetcc34,000 - 50,000 CFU/mL Enterococcus SpeciesPRELIMINARY REPORTS Preliminary Ilppyk02,000 - 50,000 CFU/ mL Enterococcus Species ; Sensitivity PendingSUSCEPTIBILITY REPORT ENTERO Antibiotic INTERP. VDIL Ampicillin S Levofloxacin S Nitrofurantoin S Tetracycline R Vancomycin S Procedures Procedures Date Related Diagnosis section Cholecystectomy 1 Hand repair 2 Tonsillectomy 3 , [id number]
--- OUTSIDE RECORDS SUMMARY | 2019-01-29 22:54 | XMS REPORT | CCD ---
:1965 Author Organization [facility] Care Team Providers Name [...] Hypertension Resolved MRSA1, 2 10/23/2012 Active 1nares 10/23/[id number] added by Discern Expert. Medications Medication Instructions [...] Duration: 30 day, Stop date: 12/06/12 1:48:00 Lequire 5/325 oral tablet 1 tab, PO, Q6H, [...] Duration: 30 day, Stop date: 12/08/12 10:44:00 Lequire 5/325 oral tablet 1 tab, Route: PO, [...] INJ, Q2H, Dosing Weight 100, kg, Total dosm=6469 mg, Start date: 11/14/12 8:00:00, Duration: 2 [...] 11/08/2012 11/08/2012 Canceled PO, Drug form: TAB, [id number], Dosing Weight 100, kg, Start date: 11/08/12 [...] [Negative] Negative 1 (11/12/2012 21:54:26) 1Interpretive Data: Meizuigene Clostridium difficile assay utilizes loop-mediated isothermalDNA amplification (LAMP) technology to detect a 204 bp region of the tcdA gene within the PaLoc genesegment present in all known toxigenic C. difficile strains. The assay utilizes FDA cleared IVD reagents. Performance characteristics have been verified by the Molecular Diagnostic Laboratory within the [facility]. The Molecular Diagnostic Laboratory is [...] values reflect the clinical guidelines of the [place] [employer].10Interpretive Data: Adult reference range values reflect the clinical guidelines of the [place] [employer].11Result Comment: rechecked Critical Result (s) called leslie Conner Rose at 11/12/2012 02:56:37 MGMT CONSULTANT by_mgm. Read back OK.12Interpretive Data: Adult reference range values reflect the clinical guidelines of the [place] [employer].13Result Comment: Critical Result(s) called to [...] 10.0 240 Poor Control, take action to [id number] Comment : Critical Result(s) called leslie Rose [...] Catch FREE TEXT SOURCE: FINAL REPORTS Final Mrtocl34,000 - 100,000 CFU/mL Enterococcus SpeciesPRELIMINARY REPORTS Preliminary Qfxycs43,000 - 100,000 CFU/ mL Enterococcus Species Identification And Sensitivity PendingSUSCEPTIBILITY REPORT ENTERO Antibiotic INTERP. VDIL Ampicillin S Levofloxacin S Nitrofurantoin S Tetracycline R Vancomycin S
--- OUTSIDE RECORDS SUMMARY | 2019-01-29 22:55 | XMS REPORT | CCD ---
:1965 Author Organization [facility] Care Team Providers Name Role Phone Nikhil Hager Consulting Provider Sukhwinder Renteria Consulting Provider Allergies, Adverse Reactions, Alerts Substance Reaction Status NKDA Active Problem List Condition Effective Dates Status Acid reflux Resolved Anemia Resolved Anxiety Resolved Arthritis Resolved Depression Resolved Diabetes mellitus type 1 Resolved Edema of lower extremity Resolved Fibromyalgia Resolved Hyperlipidemia Resolved Hypertension Resolved MRSA1, 2 10/23/2012 Active 1nares 10/23/[id number] added by Discern Expert. Medications Medication Instructions [...] mg, 1 supp, 10/23/2012 11/01/2012 Discontinued Route: VT, Drug form: SUPP, Q6H, Dosing Weight 113.636, kg, PRN Fever, Start date: 10/23/12 0:37:00, Duration: 30 day, Stop date: 11/22/12 0:36:00 Visipaque 320mg/ml 126 mL, Route: IVP, Drug Form: SOLN, Dosing Weight 113.636 , kg, ONCALL, STAT, Start date: 10/23/12 16:52:00, Duration: 1 doses or times, Dose=2.2ml/kg, Max cgqw=[id number] -- "To be infused by Radiology Staff ONLY" 10/2310/23/2012 Completed Dose=2.2ml/kg, Max [id number]=[id number] -- "To be infused by Radiology Staff [...] mg, 1 supp, 10/24/2012 10/24/2012 Deleted Route: VT, Drug form: SUPP, ONCE, Dosing Weight 78.2, [...] Duration: 1 doses or times, Dose=2.2ml/kg, Max ogbw=089zk -- "To be infused by Radiology Staff ONLY" 10/2310/23/2012 Completed Dose=2.2ml/kg, Max pzkd=[id number] -- "To be infused by Radiology Staff [...] by the Molecular Diagnostic Laboratory within the [facility]. The Molecular Diagnostic Laboratory is [...] values reflect the clinical guidelines of the [place] [employer].11Interpretive Data: Adult reference range values reflect the clinical guidelines of the [place] [employer].12Interpretive Data: Adult reference range values reflect the clinical guidelines of the [place] [employer].13Interpretive Data: Reference range is based on recommendations in the Endocrine Society Clinical Practice Guideline (J Clin Endocrinol Metab 2011;96:8090-6765)14Result Comment: Specimen Moderately Hemolyzed.15Result Comment: Critical Result(s) called to daisy otoole at 10/25/2012 01:18:09 CHUCK WAGON DRIVER by tac. Read back OK.16Result Comment: Critical Result(s) called to Maribel Bustos at 10/24/2012 13:23:46 CHUCK WAGON DRIVER by lwb . Readback OK.17Result Comment: Critical Result(s) called to Lyn King at 10/24/2012 09:52:38 CHUCK WAGON DRIVER by lwb . Read back OK.18Result Comment: Critical Result(s) called to Jelani Rasmussen at 10/25/2012 00: 47:48 CHUCK WAGON DRIVER by RM. Read back OK.19Result Comment: Critical Result(s) called to mariana bustos at _ 10/24/2012 13:37:22 CSTby_lss. Readback OK.20Result Comment : Critical Result(s) called to romero beltre at _10/24/2012 09:50:18 CHUCK WAGON DRIVER by_lss. Read back OK.21Interpretive Data: HbA1C% eAG(mg/dL) [...] Data: Heparin Therapeutic Range: 57 - 92 [id number] Data: Heparin Therapeutic Range: 57 - 92 [id number] Data: Heparin Therapeutic Range: 57 - 92 Seconds Microbiology Reports PROCEDURE:Culture: Urine STATUS: Auth (Verified) BODY SITE: COLLECTED DATE/TIME: 10/23/2012 20:33:00 SOURCE: Urine,Straight Cath FREE TEXT SOURCE: FINAL REPORTS Final Bzkvqz80,000 - 100,000 CFU/mL Gram Negative Rods , Lactose Fermenters , 2 [place] Types 50,000 - 100,000 CFU/mL Enterococcus Species [...]
--- NOTE | 2019-01-29 22:56 | ER ---
Nurse's Notes [facility] Name: Ila Pérez Age: 53 yrs Sex: Female : 1965 Arrival Date: 01/29/2019 Time: 21:01 Bed 25 Private MD: Diagnosis: Type 2 diabetes mellitus with hyperglycemia;Dehydration Presentation: 01/29 21:01 Presenting complaint: EMS states: patient has been throwing up since 10 AM. BGL was 551 mg2 mg/dl. Took her insulin \T\ 1000. has LUQ pain. 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 Transition of care: patient was not received from another setting of care. Onset of symptoms was January 29, 2019 at 10:00. Risk Assessment: Do you want to hurt yourself or someone else? Patient reports no desire to harm self or others. Initial Sepsis Screen: Does the patient meet any 2 criteria? No. Patient's initial sepsis screen is negative. Does the patient have a suspected source of infection? No. Patient's initial sepsis screen is negative. Care prior to arrival: None. 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 LMP N/A - Post-menopause mg2 Historical: - Allergies: 21:17 Gluten Protein; mg2 - Home Meds: 23:10 Albuterol Inhl [Active]; aspirin 81 mg Oral chew 1 tab once daily [Active]; bupropion mg2 HCl 150 mg Oral TbER once daily [Active]; benzonatate 100 mg Oral cap 1 cap twice a day [Active]; Carafate 100 mg/mL Oral susp 10 mL three times a day [Active]; cholestopl 1 mg twice a day [Active]; Cinnamon 500 mg Oral cap 2 cap daily [Active]; Claritin 10 mg Oral tab 1 tab once daily [Active]; D3 2000 IU 2 per day [Active]; 23:22 cyclobenzaprine 10 mg Oral tab twice a day [Active]; diphenoxylate-atropine 2.5-0.025 mg2 mg Oral tab 1-2 tablets every 6 hours [Active]; duloxetine 60 mg Oral cpDR 2 caps once daily [Active]; ferrous sulfate 325 mg (65 mg iron) Oral TbEC twice a day [Active]; furosemide 20 mg Oral tab one to two tabs every morning [Active]; [place] 120 mg daily [Active]; Glucagon Emergency Kit (human) 1 mg IM kit 1 mL [Active]; Glucosamine Oral [Active]; Humalog 100 unit/mL Sub-Q soln [Active]; hydroxyzine HCl 25 mg Oral tab 1 tab twice a day [Active]; k2 100 mcg bid [Active]; Lantus 18 U Sub-Q soln daily [Active]; lisinopril 5 mg Oral tab 1 tab once daily [Active]; lorazepam 1 mg Oral tab twice a day [Active]; lorazepam 1 mg Oral tab 1 tab 3 times per day [Active]; Lyrica Oral 150 mg 2 times per day [Active]; metoprolol succinate 25 mg Oral Tb24 1 tab once daily [Active]; multivitamin Oral cap [Active]; Myrbetriq 25 mg Oral Tb24 1 tab once daily [Active]; nitroglycerin 0.4 mg SL subl 1 tab every 5 minutes [Active]; ondansetron HCl 8 mg Oral tab [Active]; pantoprazole 40 mg Oral TbEC 1 tab 2 times per day [Active]; Rozerem 8 mg Oral tab 1 tab bedtime [Active]; tramadol 50 mg Oral tab 1 tab three times a day [Active]; trazodone 50 mg Oral tab nightly [Active]; Vasculera 630 mg Oral tab daily [Active]; - PMHx: 21:17 Anxiety; Arthritis; Chronic pain; Depression; Diabetes - IDDM; Esophagitis; mg2 Fibromyalgia; gastroporeisis; GERD; heart disease; High Cholesterol; Myocardial infarction; Hypertension; neuropathy; raynaud's; sleep disorder; Tachycardia; TBI; - Immunization history:: Flu vaccine is up to date. - Social history:: Smoking status: Patient uses tobacco products, smokes one-half pack cigarettes per day. - Ebola Screening: : No symptoms or risks identified at this time. Screenin:09 Abuse screen: Denies threats or abuse. Denies injuries from another. Nutritional mg2 screening: No deficits noted. Tuberculosis screening: No symptoms or risk factors identified. Fall Risk IV access (20 points). Assessment: 22:10 General: Appears in no apparent distress. uncomfortable, Behavior is cooperative, mg2 anxious, fussy, restless. Pain: Complains of pain in left upper quadrant. Neuro: Level of Consciousness is awake, alert, obeys commands, Oriented to person, place, time, situation. Cardiovascular: Capillary refill < 3 seconds Patient's skin is warm and dry. Respiratory: Airway is patent Respiratory effort is even, unlabored, Respiratory pattern is regular, symmetrical. GI: Reports upper abdominal pain, nausea, vomiting, since 1000 am today. : No signs and/or symptoms were reported regarding the genitourinary system. EENT: No signs and/or symptoms were reported regarding the EENT system. Derm: Skin is intact, is healthy with good turgor, Skin is pink, warm \T\ dry. normal. Musculoskeletal: Circulation, motion, and sensation intact. Capillary refill < 3 seconds. Vital Signs: 21:13 BP 166 / 70; Pulse 100; Resp 18; Temp 98.7; Pulse Ox 100% on R/A; Weight 90.72 kg; mg2 Height 5 ft. 4 in. (162.56 cm); Pain 8/10; 23:42 BP 162 / 77; Pulse 102; Resp 18; Temp 98.9; Pulse Ox 100% on R/A; Pain 2/10; mg2 21:13 Body Mass Index 34.33 (90.72 kg, 162.56 cm) mg2 ED Course: 21:01 Patient arrived in ED. mg2 21:13 Triage completed. mg2 21:13 Jan[facility] Barrera F[facility]-C [facility]. snw 21:13 Junaid Garber MD is Attending Physician. snw 21:35 Warm blanket given. Pillow given. Pulse ox on. NIBP on. jp3 21:35 Bed in low position. Call light in reach. Side rails up X 1. Side rails up X2. jp3 21:58 EKG done, by ED staff, reviewed by Janelle WINTERS. jp3 22:08 Isael Morse RN is Primary Nurse. mg2 22:10 No provider procedures requiring assistance completed. Inserted saline lock: 22 gauge mg2 in left forearm, using aseptic technique. Blood collected. 22:35 Notified Nurse Practitioner and/or Physician Search Marketing Coordinator of a critical lab result(s), GLU [id number]. 22:51 Roberto Lozada MD is Hospitalizing Provider. snw 23:08 Arm band placed on. mg2 23:38 Patient admitted, IV remains in place. mg2 Administered Medications: 21:56 Drug: NS 0.9% 1000 ml Route: IV; Rate: 125 ml/hr; Site: left forearm; mg2 21:58 CANCELLED (other intervention used): Phenergan 6.25 mg IVP once snw 22:08 Drug: Reglan 5 mg Route: IVP; Site: left forearm; mg2 23:00 Follow up: Response: No adverse reaction; Marked relief of symptoms mg2 22:09 Drug: NS 0.9% (30 ml/kg) 30 ml/kg Route: IV; Rate: bolus; Site: left forearm; mg2 22:10 Drug: Insulin Regular Human 5 units {Co-Signature: cc3 (Rafia Mares).} Route: IVP; mg2 Site: left forearm; 23:24 Follow up: Response: No adverse reaction; Blood sugar is lowered mg2 23:22 CANCELLED (Physician Discretion): Insulin Drip - (Insulin Regular Human 100 units, NS mg2 0.9% 100 ml) IV at calculated rate continuous; Standard concentration 1unit/ml; Dose for DKA is 0.1 units/kg/hr Point of Care Testing: Blood Glucose: 22:00 Blood Glucose: 425 mg/dL; mg2 23:19 Blood Glucose: 334 mg/dL; mg2 Ranges: Outcome: 22:56 Decision to Hospitalize by Provider. snw 23:38 Admitted to Tele accompanied by chralie, via wheelchair, room 423, with chart, Report mg2 called to MARTÍNEZ Zarate 23:38 Condition: stable 23:38 Instructed on the need for admit, Demonstrated understanding of instructions. 01/30 00:09 Patient left the ED. mg2 Signatures: Janelle Barrera, TRUCK DESPATCHER-C TRUCK DESPATCHER-Csnw Aristides Mukherjee RN RN la1 Isael Morse RN RN mg2 Quoc Sandy jp3 Rafia Mares cc3
--- OUTSIDE RECORDS SUMMARY | 2019-01-29 22:56 | XMS REPORT | CCD ---
:1965 Author Organization [facility] Care Team Providers Name Role Phone Emeli Clark Consulting Provider Allergies, Adverse Reactions, Alerts Substance Reaction Status NKDA Active Problem List Condition Effective Dates Status Acid reflux Resolved Anemia Resolved Anxiety Resolved Arthritis Resolved Depression Resolved Diabetes mellitus type 1 Resolved Edema of lower extremity Resolved Fibromyalgia Resolved Hyperlipidemia Resolved Hypertension Resolved MRSA1, 2 10/23/2012 Active 1nares 10/23/[id number] added by Discern Expert. Medications Medication Instructions [...] 1 doses or times, Dose= 2.2ml/kg, Max [id number] -- "To be infused by Radiology Staff ONLY" 201211/16/2012 Discontinued Dose=2.2ml/kg, Max gwmf=[id number] -- "To be infused by Radiology Staff ONLY" calcium gluconate + Sodium 2,000 mg, 20 mL, Route: 11/17/2012 11/17/2012 Completed Chloride 0.9% IV 80 mL IVPB, ONCE, Dosing Weight 103.21, kg, Start date: 11/17/12 11:02:00, Stop date: 11/17/12 11:02:00 enoxaparin 40 mg, 0.4 mL, Route: 11/16/2012 11/17/2012 Discontinued SUB-Q, Drug form: INJ, [id number], Dosing Weight 100, kg, Start date: 11/16/12 [...] date: 11/16/12 13:40:00, Stop date: 11/16/12 13:40:00 Echo 5/325 oral tablet 1 tab, Route: PO, [...] values reflect the clinical guidelines of the [place] [employer].7Interpretive Data: Adult reference range values reflect the clinical guidelines of the [place] [employer].HEMATOLOGY Most recent to oldest [Reference [...]
--- NOTE | 2019-01-29 22:57 | EDPHYS ---
Physician Documentation [facility] Name: Ila Pérez Age: 53 yrs Sex: Female : 1965 Arrival Date: 01/29/2019 Time: 21:01 Bed 25 Private MD: ED Physician Juanid Garber HPI: 01/29 21:35 This 53 yrs old Female presents to ER via EMS with complaints of high blood snw sugar, vomiting. 21:35 Around 1pm pt states she started vomiting and has not been able to tolerate po since. snw Onset: The symptoms/episode began/occurred suddenly, and became persistent. Severity of symptoms: At their worst the symptoms were incapacitating in the emergency department the symptoms are unchanged. The patient has experienced similar episodes in the past, multiple times. The patient has not recently seen a physician, sees Dr. Monaco. 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 LMP N/A - Post-menopause mg2 Historical: - Allergies: 21:17 Gluten Protein; mg2 - Home Meds: 23:10 Albuterol Inhl [Active]; aspirin 81 mg Oral chew 1 tab once daily [Active]; bupropion mg2 HCl 150 mg Oral TbER once daily [Active]; benzonatate 100 mg Oral cap 1 cap twice a day [Active]; Carafate 100 mg/mL Oral susp 10 mL three times a day [Active]; cholestopl 1 mg twice a day [Active]; Cinnamon 500 mg Oral cap 2 cap daily [Active]; Claritin 10 mg Oral tab 1 tab once daily [Active]; D3 2000 IU 2 per day [Active]; 23:22 cyclobenzaprine 10 mg Oral tab twice a day [Active]; diphenoxylate-atropine 2.5-0.025 mg2 mg Oral tab 1-2 tablets every 6 hours [Active]; duloxetine 60 mg Oral cpDR 2 caps once daily [Active]; ferrous sulfate 325 mg (65 mg iron) Oral TbEC twice a day [Active]; furosemide 20 mg Oral tab one to two tabs every morning [Active]; [place] 120 mg daily [Active]; Glucagon Emergency Kit (human) 1 mg IM kit 1 mL [Active]; Glucosamine Oral [Active]; Humalog 100 unit/mL Sub-Q soln [Active]; hydroxyzine HCl 25 mg Oral tab 1 tab twice a day [Active]; k2 100 mcg bid [Active]; Lantus 18 U Sub-Q soln daily [Active]; lisinopril 5 mg Oral tab 1 tab once daily [Active]; lorazepam 1 mg Oral tab twice a day [Active]; lorazepam 1 mg Oral tab 1 tab 3 times per day [Active]; Lyrica Oral 150 mg 2 times per day [Active]; metoprolol succinate 25 mg Oral Tb24 1 tab once daily [Active]; multivitamin Oral cap [Active]; Myrbetriq 25 mg Oral Tb24 1 tab once daily [Active]; nitroglycerin 0.4 mg SL subl 1 tab every 5 minutes [Active]; ondansetron HCl 8 mg Oral tab [Active]; pantoprazole 40 mg Oral TbEC 1 tab 2 times per day [Active]; Rozerem 8 mg Oral tab 1 tab bedtime [Active]; tramadol 50 mg Oral tab 1 tab three times a day [Active]; trazodone 50 mg Oral tab nightly [Active]; Vasculera 630 mg Oral tab daily [Active]; - PMHx: 21:17 Anxiety; Arthritis; Chronic pain; Depression; Diabetes - IDDM; Esophagitis; mg2 Fibromyalgia; gastroporeisis; GERD; heart disease; High Cholesterol; Myocardial infarction; Hypertension; neuropathy; raynaud's; sleep disorder; Tachycardia; TBI; - Immunization history:: Flu vaccine is up to date. - Social history:: Smoking status: Patient uses tobacco products, smokes one-half pack cigarettes per day. - Ebola Screening: : No symptoms or risks identified at this time. ROS: 21:35 Eyes: Negative for injury, pain, redness, and discharge, ENT: Negative for injury, snw pain, and discharge, Neck: Negative for injury, pain, and swelling, Cardiovascular: Negative for chest pain, palpitations, and edema, Respiratory: Negative for shortness of breath, cough, wheezing, and pleuritic chest pain. 21:35 Back: Negative for injury and pain, : Negative for injury, bleeding, discharge, and swelling, MS/Extremity: Negative for injury and deformity, Skin: Negative for injury, rash, and discoloration, Neuro: Negative for headache, weakness, numbness, tingling, and seizure. 21:35 Constitutional: Positive for body aches, malaise, poor PO intake. 21:35 Abdomen/GI: Positive for nausea, vomiting. Exam: 21:37 Head/Face: Normocephalic, atraumatic. Eyes: Pupils equal round and reactive to light, snw extra-ocular motions intact. Lids and lashes normal. Conjunctiva and sclera are non-icteric and not injected. Cornea within normal limits. Periorbital areas with no swelling, redness, or edema. 21:37 Neck: Trachea midline, no thyromegaly or masses palpated, and no cervical lymphadenopathy. Supple, full range of motion without nuchal rigidity, or vertebral point tenderness. No Meningismus. Chest/axilla: Normal chest wall appearance and motion. Nontender with no deformity. No lesions are appreciated. 21:37 Back: No spinal tenderness. No costovertebral tenderness. Full range of motion. MS/ Extremity: Pulses equal, no cyanosis. Neurovascular intact. Full, normal range of motion. Neuro: Awake and alert, GCS 15, oriented to person, place, time, and situation. Cranial nerves II-XII grossly intact. Motor strength 5/5 in all extremities. Sensory grossly intact. Cerebellar exam normal. Normal gait. 21:37 Constitutional: The patient appears awake, anxious, listless, pale, uncomfortable, unkempt. 21:37 ENT: Mouth: Oral mucosa: dry. 21:37 Cardiovascular: Rate: tachycardic, Rhythm: regular, JVD: is not appreciated. 21:37 Respiratory: the patient does not display signs of respiratory distress, Respirations: shallow respirations, tachypnea, Breath sounds: are clear throughout. 21:37 Abdomen/GI: Inspection: abdomen appears normal, Bowel sounds: diminished, Palpation: moderate abdominal tenderness, in the epigastric area and left upper quadrant. 21:37 Skin: Appearance: Color: pale, Temperature: cool, Moisture: dry. Vital Signs: 21:13 BP 166 / 70; Pulse 100; Resp 18; Temp 98.7; Pulse Ox 100% on R/A; Weight 90.72 kg; mg2 Height 5 ft. 4 in. (162.56 cm); Pain 8/10; 23:42 BP 162 / 77; Pulse 102; Resp 18; Temp 98.9; Pulse Ox 100% on R/A; Pain 2/10; mg2 21:13 Body Mass Index 34.33 (90.72 kg, 162.56 cm) mg2 MDM: 21:18 Patient medically screened. snw 22:47 Data reviewed: vital signs, nurses notes. Data interpreted: Pulse oximetry: on room air snw is 100 %. Interpretation: normal. Counseling: I had a detailed discussion with the patient and/or guardian regarding: the historical points, exam findings, and any diagnostic results supporting the discharge/admit diagnosis, the presence of at least one elevated blood pressure reading (>120/80) during this emergency department visit, lab results, radiology results, the need for further work-up and treatment in the hospital. Response to treatment: despite three antiemetics + continued vomiting and tachycardia. Physician consultation: Roberto Lozada MD was called at 22:48, was contacted at 22:48, regarding admission, to the telemetry unit. ED course: Pt with hx of gastroparesis, vomiting since this am at 1000. Pt has rec'd three antiemetics with continued vomiting, fluid resuscitation with continued tachycardia. Blood sugar 472. Spoke with Dr. Lozada and he agrees to admit to tele for dehydration and hyperglycemia. 01/29 21:13 Order name: Basic Metabolic Panel; Complete Time: 22:38 mg2 01/29 21:13 Order name: CBC with Diff; Complete Time: 22:04 mg2 01/29 21:13 Order name: Creatinine for Radiology; Complete Time: 22:38 mg2 01/29 21:13 Order name: Hepatic Function; Complete Time: 22:38 mg2 01/29 21:13 Order name: Lipase; Complete Time: 22:38 mg2 01/29 21:15 Order name: Blood Culture Adult (2) snw 01/29 21:16 Order name: Osmolality, Serum; Complete Time: 22:38 snw 01/29 21:16 Order name: Troponin (emerg Dept Use Only); Complete Time: 22:38 snw 01/29 21:16 Order name: CPK; Complete Time: 22:38 snw 01/29 21:23 Order name: Flu; Complete Time: 23:01 snw 01/29 22:03 Order name: Glucose, Ancillary Testing; Complete Time: 22:04 EDMS 01/29 22:43 Order name: ABG snw 01/29 22:54 Order name: Comprehensive Metabolic Panel EDMS 01/29 22:54 Order name: Comprehensive Metabolic Panel EDKS 01/29 21:13 Order name: IV Saline Lock; Complete Time: 21:56 mg2 01/29 21:13 Order name: Labs collected and sent; Complete Time: 21:56 mg2 01/29 21:15 Order name: FSBS; Complete Time: 21:54 snw 01/29 21:16 Order name: EKG; Complete Time: 21:18 snw 01/29 21:16 Order name: EKG - Nurse/Tech; Complete Time: 22:07 snw 01/29 22:55 Order name: CONS Pharmacy Consult EDMS 01/29 22:55 Order name: Consistent Carb (ADA) 1800 Artur EDMS 01/29 22:55 Order name: CBC with Automated Diff EDMS 01/29 22:55 Order name: CBC with Automated Diff EDMS 01/29 23:46 Order name: Glucose, Ancillary Testing EDMS Administered Medications: 21:56 Drug: NS 0.9% 1000 ml Route: IV; Rate: 125 ml/hr; Site: left forearm; mg2 21:58 CANCELLED (other intervention used): Phenergan 6.25 mg IVP once snw 22:08 Drug: Reglan 5 mg Route: IVP; Site: left forearm; mg2 23:00 Follow up: Response: No adverse reaction; Marked relief of symptoms mg2 22:09 Drug: NS 0.9% (30 ml/kg) 30 ml/kg Route: IV; Rate: bolus; Site: left forearm; mg2 22:10 Drug: Insulin Regular Human 5 units {Co-Signature: cc3 (Rafia Mares).} Route: IVP; mg2 Site: left forearm; 23:24 Follow up: Response: No adverse reaction; Blood sugar is lowered mg2 23:22 CANCELLED (Physician Discretion): Insulin Drip - (Insulin Regular Human 100 units, NS mg2 0.9% 100 ml) IV at calculated rate continuous; Standard concentration 1unit/ml; Dose for DKA is 0.1 units/kg/hr Point of Care Testing: Blood Glucose: 22:00 Blood Glucose: 425 mg/dL; mg2 23:19 Blood Glucose: 334 mg/dL; mg2 Ranges: Critical Glucose Levels:Adult <50 mg/dl or >400 mg/dl <40 mg/dl or >180 mg/dl Disposition: 01/30 01:40 Co-signature as Attending Physician, Junaid Garber MD. Disposition: 01/29/19 22:56 Hospitalization ordered by Roberto Lozada for Observation. Preliminary diagnosis are Type 2 diabetes mellitus with hyperglycemia, Dehydration. - Bed requested for Telemetry/MedSurg (observation). - Status is Observation. mg2 - Condition is Stable. - Problem is an acute exacerbation. - Symptoms are unchanged. UTI on Admission? No Signatures: Dispatcher [employer] EDKS Sandra Garibay RN RN Janelle Barrera, HOUSE WORKER GENERAL-C HOUSE WORKER GENERAL-Csnw Junaid Garber MD MD Isael Morse RN RN [facility] Rafia Mares cc3 Corrections: (The following items were deleted from the chart) 01/29 21:58 21:23 Phenergan 6.25 mg IVP once ordered. [facility] 23: 21:46 Insulin Drip - (Insulin Regular Human 100 units, NS 0.9% 100 ml) IV at calculated mg2 rate continuous; Standard concentration 1unit/ml; Dose for DKA is 0.1 units/kg/hr ordered. [facility] 23: 22:56 Hospitalization Ordered by Roberto Lozada MD for Observation. Preliminary diagnosis is Type 2 diabetes mellitus with hyperglycemia; Dehydration. Bed requested for Telemetry/MedSurg (observation). Status is Observation. Condition is Stable. Problem is an acute exacerbation. Symptoms are unchanged. UTI on Admission? No. [facility] 23:23 21:46 Misc. Order ordered. [place] [id number] 01/30 00:09 01/29 23:22 01/29/2019 22:56 Hospitalization Ordered by Roberto Lozada MD for mg2 Observation. Preliminary diagnosis is Type 2 diabetes mellitus with hyperglycemia; Dehydration. Bed requested for Telemetry/MedSurg (observation). Status is Observation. Condition is Stable. Problem is an acute exacerbation. Symptoms are unchanged. UTI on Admission? No. mw
--- OUTSIDE RECORDS SUMMARY | 2019-01-29 22:57 | XMS REPORT | CCD ---
:1965 Author Organization [facility] Care Team Providers Name Role [...] 10/23/2012 Active Neuropathy Resolved - Nares - [id number] 10/23/[id number] added by Discern Expert. Medications Medication Instructions [...] IVPB, Drug 12/02/2012 12/02/2012 Discontinued form: PDR/INJ, [id number], Dosing Weight 100, kg, Start date: 12/02/12 [...] 11/29/2012 11/29/2012 Discontinued SUB-Q, Drug form: INJ, [id number], Dosing Weight 101.364, kg, Start date: 11/29/12 [...] mg, 1 supp, Route: 12/04/2012 12/07/2012 Discontinued MT, Drug form: SUPP, Q4H, Dosing Weight 100, [...] date: 12/04/12 23:39:00, Stop date: 12/04/12 23:39:00 [place] 7.5/325 oral tablet 1 tab, Route: PO, [...] IVPB, Drug 11/29/2012 12/01/2012 Discontinued form: PDR/INJ, [id number], Dosing Weight 100, kg, Start date: 11/29/12 [...] 7:47:00 Phenergan 25 mg rectal 1 supp, MT, Q6H, PRN, 9 11/29/2012 Ordered suppository supp, [...] by the [facility] within the [facility]. The [facility] is [...] values reflect the clinical guidelines of the [place] [employer].11Interpretive Data: Adult reference range values reflect the clinical guidelines of the [place] [employer].12Interpretive Data: Adult reference range values reflect the clinical guidelines of the [place] [employer].13Interpretive Data: No established reference ranges.14Interpretive [...] Data: Heparin Therapeutic Range: 57 - 92 [id number] Data: Heparin Therapeutic Range: 57 - 92 [...] Catch FREE TEXT SOURCE: FINAL REPORTS Final Dacifj05,000 - 50,000 CFU/mL Yeast <10,000 CFU/mL Skin EsPRELIMINARY REPORTS Preliminary ReportNo Growth; Holding Procedures Procedures Date Related Diagnosis Heart procedure 1 1cardiac stent for [place]
--- OUTSIDE RECORDS SUMMARY | 2019-01-29 22:58 | XMS REPORT | CCD ---
:1965 Author Organization [facility] Care Team Providers Name Role Phone JohnbeckiReno [...] 10/23/2012 Active Neuropathy Resolved - Nares/ - [id number] 10/23/201224680Qopphud added by Discern Expert. Medications Medication Instructions [...] 03/08/13 3:17:00, Stop date: 03/08/13 3:17:00 lidocaine-epi 1%-1:733511 1 ml, Route: SUB-Q, Drug 03/07/2013 03/07/2013 [...] date: 03/07/13 2:35:00, Stop date: 03/07/13 2:35:00 [place] 5/325 oral tablet 1 tab, PO, Q6H, [...] Results BEDSIDE GLUCOSE TESTING Most recent to [facility] 1 2 3 [Reference Range]: Gluc [...] Reportable Limit: 200 mg/dL.URINALYSIS Most recent to [facility] [Reference Range]: 1 2 3 UA [...] values reflect the clinical guidelines of the [place] [employer].8Interpretive Data: Adult reference range values reflect the clinical guidelines of the [place] [employer].9Interpretive Data: Adult reference range values reflect the clinical guidelines of the [place] [employer].HEMATOLOGY Most recent to oldest 1 [...]
--- OUTSIDE RECORDS SUMMARY | 2019-01-29 22:58 | XMS REPORT | CCD ---
:1965 Author Organization [facility] Care Team Providers Name Role [...] 10/23/2012 Active Neuropathy Resolved - Nares - Itape9nvmmr 10/23/201231417Izailme added by Discern Expert. Medications Medication Instructions [...]
--- OUTSIDE RECORDS SUMMARY | 2019-01-29 22:58 | XMS REPORT | CCD ---
:1965 Author Organization [facility] Care Team Providers Name Role Phone [...] 10/23/2012 Active Neuropathy Resolved - Nares - [id number] 10/23/201284202Wvkoqqj added by Discern Expert. Medications Medication Instructions [...]
--- OUTSIDE RECORDS SUMMARY | 2019-01-29 22:59 | XMS REPORT | CCD ---
:1965 Author Organization [facility] Care Team Providers Name Role Phone Alberto [...] 10/23/2012 Active Neuropathy Resolved - Nares - [id number] 10/23/201298379Ajnhqnb added by Discern Expert. Medications Medication Instructions Start Date End Date Status acetaminophen-hydrocod 1 tab, Route: PO, Drug Form: 07/12/2013 07/14/2013 Discontinued one 325 mg-5 mg oral TAB, Dosing Weight 86.364, tablet kg, Q4H, PRN Pain, Start date: 07/12/13 18:23:00, Duration: 30 day, Stop date: 08/11/13 18:22:00(Same as: [place] 325/5) Do not exceed 4gm/day of acetaminophen. [...] 1 doses or times, Dose =2.2ml/kg, Max xhca=337pk -- "To be infused by Radiology Staff ONLY" 201207/12/2013 Completed Dose=2.2ml/kg, Max kctx=304xm -- "To be infused by Radiology Staff [...] day, Stop date: 08/11/13 9:00:00(Same as: Lopressor) [place] 5/325 oral 1 tab, Route: PO, Dosing [...] date: 08/11/13 9:00:00(Same as: Mag-Ox 400)Magnesium oxide 017iu=974md elemental magnesiumDose=____mg magnesium oxide (___mg elemental magnesium) [...] [Negative] Negative 1 (07/13/2013 00:00:59) 1Interpretive Data: [employer] Clostridium difficile assay utilizes loop-mediated isothermalDNA amplification (LAMP) technology to detect a 204 bp region of the tcdA gene within the PaLoc genesegment present in all known toxigenic C. difficile strains. The assay utilizes FDA cleared IVD reagents. Performance characteristics have been verified by the [facility] within the [facility]. The [facility] Laboratory is authorized [...] /LPF] Many /LPF *ABN* (07/12/2013 03:00:00) UA [place] Yeast [None Seen /HPF] Moderate /HPF *ABN* [...] values reflect the clinical guidelines of the [place] [employer].9Interpretive Data: Adult reference range values reflect the clinical guidelines of the [place] [employer].10Interpretive Data: Adult reference range values reflect the clinical guidelines of the [place] [employer].HEMATOLOGY Most recent to oldest [Reference [...] to oldest [Reference Range]: 1 2 3 [place]-HIV 1/2 Ab [Negative] Negative *NA* (07/14/2013 00:27:00) [place]-Hep C Ab [Negative] Negative *NA* (07/14/2013 00:27:00) CDC-HIV 1/2 Ab [Negative] Negative *NA* (07/12/2013 16:02:06)
--- OUTSIDE RECORDS SUMMARY | 2019-01-29 22:59 | XMS REPORT ---
:1965 [address] [facility] Address [address] [place] [address] [address] [place] [address] Care Team Providers Name Role Phone SHANI [...] (BEAKER) (test 211 mg/dL 70-110 TESTED AT [address] zqde=9445) [place] [id number] POCT-GLUCOSE [id number] 13:04:00 Test Item Value Reference Range Comments POC-GLUCOSE METER (BEAKER) 282 mg/dL 70-110 TESTED AT [address] (test llaw=1764) [place] [id number] POCT-GLUCOSE [id number] 14:35:00 Test Item Value Reference Range Comments POC-GLUCOSE METER (BEAKER) 200 mg/dL 70-110 TESTED AT [address] (test gppo=2869) [place] [address] [id number] 12:24:00 Test Item Value Reference Range Comments SODIUM (BEAKER) (test bldq=211) 136 meq/L 136-145 POTASSIUM (BEAKER) (test pstu=675) 5.4 meq/L 3.5-5.1 CHLORIDE (BEAKER) (test npdw=456) 102 meq/L 98-107 CO2 (BEAKER) (test grrv=570) 25 meq/L 22-29 [id number] 12:24:00 Test Item Value Reference Range Comments GLUCOSE RANDOM (BEAKER) (test yqlk=760) 353 mg/dL 70-105 BUN AND [id number] 12:24:00 Test Item Value Reference Range Comments BLOOD UREA NITROGEN 14 mg/dL 7-21 ([facility]) (test nhlc=862) CREATININE ([facility]) (test 1.08 mg/dL 0.57-1.25 fnry=242) EGFR ([facility]) (test 53 mL/min/1.73 sq m ESTIMATED GFR IS NOT klym=3550) ACCURATE CREATININE CLEARANCE IN PREDICTING GLOMERULAR FILTRATION RATE. ESTIMATED GFR IS NOT APPLICABLE FOR DIALYSIS PATIENTS. POCT-HEMOGLOBIN [id number] 11:43:00 Test Item Value Reference Range Comments POC-HEMOGLOBIN METER 12.1 g/dL 12.0-15.[address] ([facility]) (test jncp=3322) [place] [address] POCT-GLUCOSE [id number] 11:43:00 Test Item Value Reference Range Comments POC-GLUCOSE METER ([facility]) 320 mg/dL 70-110 Verify with Lab draw/TESTED AT (test vekb=5010) [place] [address] [place] [address]
--- OUTSIDE RECORDS SUMMARY | 2019-01-29 22:59 | XMS REPORT | CCD ---
[...] 10/23/2012 Active Neuropathy Resolved - Nares - [id number] 10/23/201213716Ypdwkin added by Discern Expert. Medications Medication Instructions [...] values reflect the clinical guidelines of the [place] [employer].HEMATOLOGY Most recent to oldest [Reference [...]
[2019-01-29 23:03] LABS: Arterial Blood Carboxyhemoglob 0.7 % (0-1.5); Blood Gas Oxyhemoglobin 95.6 % (94-97); Blood O2 Saturation 97.8 % (92-98.5)
[2019-01-30 00:24] VITALS: BMI 34.3
[2019-01-30] MEDS: ONDANSETRON 4 MG/2 ML VIAL IV PRN ×3 (00:36→23:48)
[2019-01-30] MEDS: MORPHINE 2 MG/ML SYR IV PRN ×4 (00:36→23:48)
[2019-01-30] MEDS: NA CHLORIDE 0.9% 1,000 ML IV SCH ×4 (00:36→22:08)
[2019-01-30 02:17] LABS: Urine Appearance CLEAR; Urine Bilirubin NEGATIVE (NEG); Urine Blood NEGATIVE (NEG); Urine Color YELLOW; Urine Glucose 3+ (NEG); Urine Protein NEGATIVE (NEG); Urine pH 6.5 (5.0-7.0)
[2019-01-30 02:25] LABS: Urine Microscopic Reflex NO UMIC
[2019-01-30] MEDS: METOCLOPRAMIDE 10 MG/2mL INJ IV SCH ×4 (04:10→22:07)
[2019-01-30] MEDS ORDERED: LORazepam 2 MG/ML VIAL IV ONE (05:36)
[2019-01-30] MEDS ORDERED: METOPROLOL TARTRATE 5 MG/5 ML INJ IV STA (05:36)
[2019-01-30] MEDS ORDERED: ONDANSETRON 4 MG/2 ML VIAL IV ONE (05:47)
[2019-01-30] MEDS ORDERED: NA CHLORIDE 0.9% 500 ML IV ONE (05:48)
[2019-01-30 06:17] LABS: Bilirubin Total 0.9 mg/dL (0.2-1.0); Potassium 4.7 mmol/L (3.5-5.1); Protein, Total 8.7 g/dL (6.4-8.2)
[2019-01-30 07:42] LABS: Absolute Lymphocytes (CBC) 0.7 K/uL (0.7-4.9); Absolute Monocytes 0.3 K/uL (0.1-1.3); Basophils % 0.3 % (0-1.3); Hematocrit 43.8 % (36.0-45.0); Lymphocytes % 5.7 % (15.3-44.8); MPV 10.4 fL (7.6-11.3); Monocytes % 2.6 % (3.3-12.3); RBC Red Blood Cell Count 5.38 M/uL (3.86-4.86)
--- NOTE | 2019-01-30 07:54 | EKG ---
Test Date: 2019-01-29 Test Time: 22:04:14 Cart[employer] Forming Machine Tender: HARLEY MEASUREMENT RESULTS: Intervals: Rate: 102 FL: 136 QRSD: 78 QT: 352 QTc: 458 [place]: P: 80 FL: 136 QRS: 64 T: 45 INTERPRETIVE STATEMENTS: Sinus tachycardia Biatrial enlargement Abnormal ECG Compared to ECG 12/18/2018 19:47:18 Sinus rhythm no longer present Electronically Signed On 01-30-19 07:53:39 CDT by Miguel A Tidwell
[2019-01-30 08:53] LABS: Blood Morphology Comment NOT SEEN (NOT SEEN); Platelet Estimate ADEQ; Urine White Blood Cell Casts OK
[2019-01-30] MEDS: METOPROLOL XL 25 MG TAB PO SCH ×2 (09:00→09:03)
[2019-01-30] MEDS ORDERED: INSULIN GLARGINE HUM REC ANLOG 24 UNIT SQ SCH (09:00)
[2019-01-30] MEDS: INSULIN GLARGINE 100 UNITS/ML SQ SCH (09:03)
--- NOTE | 2019-01-30 09:06 | RAD REPORT ---
EXAM DESCRIPTION: RAD - Abdomen W Erect - 01/30/2019 8:39 am CLINICAL HISTORY: Abdominal pain vomiting FINDINGS: The bowel gas pattern is unremarkable. Free air is not seen beneath the diaphragm. Vascular calcifications . Chronic calcification overlies the left sacrum
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
[2019-01-30] MEDS ORDERED: METOPROLOL XL 50 MG TAB PO ONE (10:00)
[2019-01-30] MEDS: clonazePAM 0.5 MG TAB PO SCH ×3 (10:18→22:07)
--- NOTE | 2019-01-30 16:14 | P.PN ---
Subjective Date of Service: 01/30/19 Chief Complaint: Intractable nausea and vomiting; tachycardia; dyspnea; hyperglycemia Patient seen and examined at bedside. No family at bedside. Chart reviewed and case discussed with nursing staff. Review of Systems 10-point ROS is otherwise unremarkable Physical Examination - Vital Signs Temperature: 97.7 F Blood Pressure: 175/62 Pulse: 109 Respirations: 18 Pulse Ox (%): 99 - Physical Exam General: Alert, Oriented x3, Moderate distress HEENT: Atraumatic, PERRLA, EOMI Neck: Supple, JVD not distended Respiratory: Clear to auscultation bilaterally, Normal air movement Cardiovascular: Regular rate/rhythm, Normal S1 S2 Gastrointestinal: Normal bowel sounds, Tenderness Musculoskeletal: No tenderness Integumentary: No rashes Neurological: Normal speech, Normal tone, Normal affect Lymphatics: No axilla or inguinal lymphadenopathy - Studies Laboratory Data (last 24 hrs) 01/30/19 07:00: WBC 13.1 H D, Hgb 14.0, Hct 43.8, Plt Count 248 01/30/19 05:30: Sodium 133 L, Potassium 4.7, BUN 12, Creatinine 1.06, Glucose 411 H*, Total Bilirubin 0.9, AST 19, ALT 21, Alkaline Phosphatase 168 H 01/29/19 21:45: Creatinine 1.24 01/29/19 21:45: WBC 7.6, Hgb 13.3 D, Hct 41.9 D, Plt Count 249 01/29/19 21:45: Sodium 134 L, Potassium 3.9, BUN 12, Creatinine 1.23, Glucose 472 H*, Total Bilirubin 0.7, AST 15, ALT 22, Alkaline Phosphatase 148 H, Lipase 50 L Microbiology Data (last 24 hrs): 01/30/19 05:30 Blood - Blood Anaerobic Blood Culture - Final 01/29/19 22:35 Nasopharnyx Influenza Type A Antigen Screen - Final 01/29/19 22:35 Nasopharnyx Influenza Type B Antigen Screen - Final Assessment And Plan - Plan Intractable nausea and vomiting Gastroparesis Neuropathy Palpitations Short-term memory loss CAD (coronary artery disease) Diabetes HTN (hypertension) Plan: 1. Continue Aggressive IV hydration 2. Strict blood sugar control 3. Monitor renal function closely 4. Continue Anti-emetics 5. Anxiolytics 6. Monitor hemodynamics and may need to adjust blood pressure medication 7. Upper GI and abdominal film to further evaluate persistent nausea and vomiting 8. GI and DVT prophylaxis
[2019-01-30] MEDS ORDERED: D50W 25 GM/50 ML SYRINGE IV PRN (16:25)
[2019-01-30] MEDS ORDERED: GLUCAGON 1 MG/VIAL IM PRN (16:25)
[2019-01-30] MEDS ORDERED: HYDRALAZINE HCL 20 MG/ML VIAL IV ONE (16:25)
[2019-01-30] MEDS: METRONIDAZOLE 500mg IVPB 500 MG/100 ML BAG IV SCH (16:50)
[2019-01-30] MEDS: INSULIN -REGULAR HUMAN 50 UNIT/0.5 ML ML SQ SCH ×2 (16:51→22:08)
[2019-01-31] MEDS: METRONIDAZOLE 500mg IVPB 500 MG/100 ML BAG IV SCH ×3 (01:31→16:10)
[2019-01-31] MEDS: MORPHINE 2 MG/ML SYR IV PRN (03:45)
[2019-01-31] MEDS: METOCLOPRAMIDE 10 MG/2mL INJ IV SCH ×2 (04:43→11:00)
[2019-01-31] MEDS: NA CHLORIDE 0.9% 1,000 ML IV SCH ×4 (05:00→21:55)
[2019-01-31] MEDS ORDERED: LIDOCAINE 2% MPF 5 ML VIAL ONE (07:45)
[2019-01-31] MEDS ORDERED: ROCURONIUM 50 MG/5 ML VIAL IV ONE (07:45)
[2019-01-31] MEDS ORDERED: PROPOFOL 200 MG/20 ML VIAL IV ONE (07:45)
[2019-01-31] MEDS: INSULIN GLARGINE 100 UNITS/ML SQ SCH (09:09)
[2019-01-31] MEDS: clonazePAM 0.5 MG TAB PO SCH ×3 (09:10→20:54)
[2019-01-31] MEDS: METOPROLOL XL 25 MG TAB PO SCH (09:10)
[2019-01-31] MEDS: INSULIN -REGULAR HUMAN 50 UNIT/0.5 ML ML SQ SCH ×4 (09:11→21:00)
[2019-01-31] MEDS ORDERED: FLUTICASONE 50MCG NASAL SPRAY NAS PRN (10:16)
[2019-01-31] MEDS ORDERED: TRAZODONE 50 MG TABLET PO PRN (10:16)
--- NOTE | 2019-01-31 11:13 | RAD REPORT ---
EXAM DESCRIPTION: CT - Head Brain Wo Cont - 01/31/2019 11:05 am CLINICAL HISTORY: AMS Headache, drowsiness COMPARISON: Head Brain Wo Cont dated 12/18/2018; Head Brain Wo Cont dated 12/12/2018 TECHNIQUE: All CT scans are performed using dose optimization technique as appropriate and may inclu de automated exposure control or mA/KV adjustment according to patient size. FINDINGS: No intracranial hemorrhage, hydrocephalus or extra-axial fluid collection.No areas of brai n edema or evidence of midline shift. The paranasal sinuses and mastoids are clear. The calvarium is intact. Vertebral arteries are calcif ied. IMPRESSION: No acute intracranial abnormality.
[2019-01-31] MEDS: LISINOPRIL 5 MG TAB PO SCH (12:22)
[2019-01-31] MEDS: PREGABALIN 150 MG CAP PO SCH ×2 (12:23→20:54)
[2019-01-31] MEDS: BUPROPION HCL XL 150 MG TAB PO SCH (12:26)
[2019-01-31] MEDS ORDERED: SODIUM CHLORIDE 0.9% 10ML INJ IV PRN (13:19)
[2019-01-31] MEDS: SUCRALFATE 1GM/10ML UCUP PO SCH ×2 (14:00→20:55)
[2019-01-31] MEDS ORDERED: ZOLPIDEM TARTRATE 5 MG TABLET PO PRN (14:52)
[2019-01-31 15:40] LABS: Barbiturates NEGATIVE (NEGATIVE); Benzodiazepines NEGATIVE (NEGATIVE); Cocaine NEGATIVE (NEGATIVE); METHAMPHETAM NEGATIVE (NEGATIVE); Methadone NEGATIVE (NEGATIVE); Opiates NEGATIVE (NEGATIVE); Phencyclidine NEGATIVE (NEGATIVE); THC Cannibis NEGATIVE (NEGATIVE)
[2019-01-31] MEDS: PANTOPRAZOLE 40 MG INJ IVP SCH (16:10)
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
[2019-01-31] MEDS: HYDROCODONE/APAP 10/325 TAB PO PRN (20:53)
[2019-01-31] MEDS: ONDANSETRON 4 MG/2 ML VIAL IV PRN (20:53)
[2019-01-31] MEDS ORDERED: INSULIN GLARGINE 100 UNITS/ML SQ SCH (21:00)
[2019-01-31] MEDS ORDERED: HOME MED 1 EA UNK (Mirabegron [Myrbetriq] 1 TAB) PO SCH (21:00)
[2019-01-31] MEDS ORDERED: DULOXETINE 30 MG CAP PO SCH (21:00)
[2019-01-31] MEDS ORDERED: RAMELTEON PO SCH (21:00)
[2019-02-01] MEDS: NA CHLORIDE 0.9% 1,000 ML IV SCH ×2 (00:38→11:14)
[2019-02-01] MEDS: METRONIDAZOLE 500mg IVPB 500 MG/100 ML BAG IV SCH ×3 (00:38→17:22)
[2019-02-01] MEDS: INSULIN -REGULAR HUMAN 50 UNIT/0.5 ML ML SQ SCH ×3 (07:30→17:22)
[2019-02-01] MEDS: SUCRALFATE 1GM/10ML UCUP PO SCH ×2 (09:09→14:02)
[2019-02-01] MEDS: METOPROLOL XL 25 MG TAB PO SCH (09:10)
[2019-02-01] MEDS: clonazePAM 0.5 MG TAB PO SCH ×3 (09:10→18:46)
[2019-02-01] MEDS: PREGABALIN 150 MG CAP PO SCH (09:10)
[2019-02-01] MEDS: LISINOPRIL 5 MG TAB PO SCH (09:11)
[2019-02-01] MEDS: PANTOPRAZOLE 40 MG INJ IVP SCH (09:13)
[2019-02-01] MEDS: INSULIN GLARGINE 100 UNITS/ML SQ SCH (09:14)
[2019-02-01] MEDS: ONDANSETRON 4 MG/2 ML VIAL IV PRN (09:27)
[2019-02-01] MEDS: HYDROCODONE/APAP 10/325 TAB PO PRN ×2 (09:27→17:39)
[2019-02-01] MEDS: BUPROPION HCL XL 150 MG TAB PO SCH (11:14)
[2019-02-01] MEDS ORDERED: LORazepam 2 MG/ML VIAL IV ONE (11:22)
[2019-02-01 11:46] VITALS: O2SAT 100
[2019-02-01 16:14] LABS: Absolute Lymphocytes (CBC) 1.4 K/uL (0.7-4.9); Absolute Monocytes 0.9 K/uL (0.1-1.3); Absolute Neutrophil 8.2 K/uL (1.8-8.0); Basophils % 0.5 % (0-1.3); Eosinophils % 0.3 % (0-4.4); Hematocrit 40.7 % (36.0-45.0); Lymphocytes % 12.9 % (15.3-44.8); MPV 9.6 fL (7.6-11.3); Monocytes % 8.5 % (3.3-12.3); RBC Red Blood Cell Count 5.05 M/uL (3.86-4.86)
[2019-02-01 17:47] VITALS: BP 150/90; TEMP 98.4
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
== END 2019-02-01 17:59 | disposition home or self-care (01) | DRG 73 ==
LOC: ER 20:52 → ERHOLD 22:50 → 4TH 23:44 → OBSVTOIN 01-30 16:04
PROVIDERS: ADMIT Hospitalist; ATTEND Hospitalist
DX: E11.43 Type 2 diabetes mellitus with diabetic autonomic (poly)neuropathy (principal); G93.41 Metabolic encephalopathy; E11.65 Type 2 diabetes mellitus with hyperglycemia; K31.84 Gastroparesis; Z79.4 Long term (current) use of insulin; R11.2 Nausea with vomiting, unspecified; I25.10 Atherosclerotic heart disease of native coronary artery without angina pectoris; R00.2 Palpitations; R41.3 Other amnesia; F32.9 Major depressive disorder, single episode, unspecified; Z91.19 Patient's noncompliance with other medical treatment and regimen; I10 Essential (primary) hypertension; Z98.84 Bariatric surgery status; F41.1 Generalized anxiety disorder; Z95.5 Presence of coronary angioplasty implant and graft
CPT/HCPCS: 36415; 70450; 74019; 80048; 80053; 80076; 80307; 81003; 82550; 82805; 82962; 83036; 83690; 83930; 84484; 85025; 87040; 87804; 93005; 96374; 96375; 97116; 97162; 97530; 99285; C9113; G0378; J0360; J2270; J2405; J2704; J2765; J7030

== ENCOUNTER 2019-02-25 08:07 | Emergency (ER) | payer OTHER ==
--- OUTSIDE RECORDS SUMMARY | 2019-02-25 08:10 | XMS REPORT | Clinical Summary ---
:1965 Author Organization [facility] Address [address] [place] [address] Care Team Providers Name Role Phone Fabián [...] 05/31/2018 Surgery Gastroenterology Boone Barahona UPPER ENDOSCOPY [facility] 05/31/2018 Hospital Encounter Gastroenterology Boone Barahona [facility] 05/24/2018 Hospital Encounter Pre-Admission Testing Resource, [facility] Preadmit Phone after 02/24/2018 Social History Tobacco Use Types Packs/Day Years [...] procedure are in the results section. after 02/24/2018 Results POC-Glucose meter (05/31/2018 2:40 PM CDT)Only the most recent of2 resultswithin the time period is included. POC-Glucose Meter 211 (H)Comment: TESTED AT 70 - 110 mg/dL [facility] [address] [facility] [id number] Specimen Blood Performing Organization Address City/State/Zipcode Phone Number [facility] [address] [place] [address] CENTER REPORT OF PROCEDURE - ENDOSCOPY URL (05/31/2018 2:37 PM CDT) Narrative Performed At after 02/24/2018 Insurance Payer Benefit Plan / Group Subscriber ID Type Phone Address [facility] - MEDICARE AARP/MEDICARE COMPLETE xxxxxxxxx [facility] CARE Advance Directives For more information, please contact:[address] [phone] Code Status Date Activated Date Inactivated Comments Full Code 06/25/2017 10:56 AM 06/25/2017 5:59 PM This code status was determined by: Patient
[2019-02-25] MEDS ORDERED: ONDANSETRON 4 MG/2 ML VIAL ONE ×2 (08:42→10:55)
[2019-02-25] MEDS ORDERED: NA CHLORIDE 0.9% 1,000 ML ONE (08:42)
--- NOTE | 2019-02-25 09:06 | RAD REPORT ---
EXAM DESCRIPTION: RAD - Chest Single View - 02/25/2019 8:32 am CLINICAL HISTORY: Cough, chest tightness COMPARISON: June 2018 TECHNIQUE: AP portable chest image was obtained 0830 hours . FINDINGS: No focal infiltrate or mass. No failure or volume overload. Lung markings are prominent bu t stable. Heart and vasculature are normal. No measurable pleural effusion and no pneumothorax. No ac tim bony abnormality seen. No acute aortic findings suspected. IMPRESSION: No acute cardiopulmonary process. No significant interval change.
[2019-02-25 09:41] LABS: Protime INR 0.89
[2019-02-25 09:55] LABS: ALT/SGPT 17 U/L (12-78); AST/SGOT 13 U/L (15-37); Absolute Lymphocytes (CBC) 1.1 K/uL (0.7-4.9); Alkaline Phosphatase 140 U/L (45-117); BUN Blood Urea Nitrogen 10 mg/dL (7-18); Basophils % 1.1 % (0-1.3); Bicarbonate 27 mmol/L (21-32); Bilirubin Direct 0.1 mg/dL (0-0.2); Bilirubin Total 0.4 mg/dL (0.2-1.0); Eosinophils % 4.6 % (0-4.4); Glucose Level 304 mg/dL (74-106); Hematocrit 32.3 % (36.0-45.0); Lipase 47 U/L (73-393); Lymphocytes % 13.4 % (15.3-44.8); MPV 9.4 fL (7.6-11.3); Magnesium 2.1 mg/dL (1.8-2.4); Monocytes % 7.1 % (3.3-12.3); NT PRO-BNP 569 pg/mL (<125); Potassium 4.4 mmol/L (3.5-5.1); Protein, Total 6.8 g/dL (6.4-8.2); RBC Red Blood Cell Count 3.99 M/uL (3.86-4.86); Sodium Level 134 mmol/L (136-145); Troponin (Emerg Dept Use Only) < 0.02 ng/mL (0.0-0.045)
[2019-02-25 09:56] LABS: Blood Gas Oxyhemoglobin 93.3 % (94-97); Blood O2 Saturation 95.5 % (92-98.5)
[2019-02-25] MEDS ORDERED: HYDROMORPHONE HCL 0.5 MG/0.5 ML INJ ONE ×2 (09:57→10:55)
[2019-02-25] MEDS ORDERED: MUPIROCIN 2% OINT 22GM TUBE TOP ONE (09:57)
[2019-02-25] MEDS ORDERED: NA CHLORIDE 0.9% 2,000 ML ONE (09:58)
--- OUTSIDE RECORDS SUMMARY | 2019-02-25 10:21 | XMS REPORT | Continuity of Care Document ---
:1965 Author Organization Interface Problems Problem Status Onset Classification Date Comments Source Date Reported PAIN IN Active 08/13/20 [facility] ABDOMEN/NAUSEA/TI Medical [facility] Center BDDC/GASTROESOPHA Active 07/24/20 [facility] GEAL REFLUX Medical DISEASE Center VOMITING Active 07/11/[address] GASTROPARESIS Active 07/11/[address] CHEST PAIN Active 04/02/[address] Center R/O ACS Active 04/02/[address] HYPERGLYCEMIA Active 03/06/20 [facility] DEHYDRATION [address] [place] [address] GASTROPARESIS Center SOB/CHEST PAIN Active 03/06/[address] NASEAU Active 01/11/[address] Center N/V Active 11/29/[address] VOMITTING, Active 11/29/19 [facility] DIABETIC, HEART [address] [place] [address] PT Center ACS R/O AND Active 11/17/19 [facility] PERSISTANT N/V [address] [place] [address] NAUSEA, VOMITTING Active 11/17/[address] MRSA<sup>1, Active 10/23/19 Problem 11/19/2012 2Problem [facility] </sup><sup>2</sup 13 added by Medical [facility] Expert. MRSA<sup>1, 2, 3, Active 10/23/19 Problem 08/15/2013 4Problem [facility] 4</sup> 13 added by Medical [facility] Center Expert. MRSA<sup>1, Active 10/23/19 Problem 04/05/2013 4Problem [facility] </sup><sup>2, 13 added by Medical </sup><sup>3, [facility] </sup><sup>4</sup Expert. > N/V DEHYDRATION Active 10/22/[address] [place] - Myocardial Resolved 10/22/19 Problem 08/15/2013 [facility] infarction [address] [place] [address] [place] - Myocardial Resolved 10/22/19 Problem 04/05/[address] DSU/ REFLUX Active 06/13/[address] MORBID OBESITY Active 01/19/[address] Acid reflux Resolved Problem 04/05/2013 [facility] Anemia Resolved Problem 04/05/2013 [facility] Anxiety Resolved Problem 04/05/2013 [facility] Arthritis Resolved Problem 04/05/2013 [facility] Depression Resolved Problem 04/05/2013 [facility] Diabetes mellitus Resolved Problem 04/05/[address] Edema of lower Resolved Problem 04/05/2013 [facility] Fibromyalgia Resolved Problem 04/05/2013 [facility] Hyperlipidemia Resolved Problem 04/05/2013 [facility] Hypertension Resolved Problem 04/05/2013 [facility] Acid reflux Resolved Problem 08/15/2013 [facility] Anemia Resolved Problem 08/15/2013 [facility] Anxiety Resolved Problem 08/15/2013 [facility] Arthritis Resolved Problem 08/15/2013 [facility] Depression Resolved Problem 08/15/2013 [facility] Diabetes mellitus Resolved Problem 08/15/[address] Edema of lower Resolved Problem 08/15/2013 [facility] Fibromyalgia Resolved Problem 08/15/2013 [facility] Gastric ulcer Resolved Problem 08/15/2013 [facility] Hyperlipidemia Resolved Problem 08/15/2013 [facility] Hypertension Resolved Problem 08/15/2013 [facility] Neuropathy Resolved Problem 08/15/2013 [facility] Gastric ulcer Resolved Problem 04/05/2013 [facility] Neuropathy Resolved Problem 04/05/2013 [facility] CHEST PAIN NOS Active [facility] MORBID OBESITY Active [facility] NAUSEA WITH Active [facility] VOMITING [facility] OTHER GENERAL Active [facility] Medications Medication Details Route Status Patient Ordering Order Source Instructions Provider Date Zofran 4 mg 4 mg=1 tab, PO, Active De La Garza [facility] oral tablet BID, # 10 tab, 0 2012 Medical Refill(s) Center Reglan 10 mg 10 mg=1 tab, PO, Active De La Garza 08/13[facility] oral tablet QID, # 40 tab, 0 2012 Medical Refill(s) Center IDS med 5 mg, 1 mL, Inactive Ruggiero [facility] Rate: 30 ml/hr, 2012 Medical Infuse over: [...] Sulfate) Sodium Chloride 1,000 mL, Rate: Inactive Roebrlewicz [place] 0.9% (Bolus) IV 1,000 ml/hr, 2012 [...] 10 mg 10 mg, 1 tab, Inactive [facility] oral tablet Route: PO, Drug 2012 Medical form: TAB, Center TID-Before Meals, Dosing Weight 86.364, kg, Start date: 07/14/13 11:30:00, Duration: 30 day, Stop date: 08/13/13 7:30:00(Same as: Reglan) Take 30 min before meals Levemir 15 unit, 0.15 No Longer [facility] mL, Route: Active 2012 Medical SUB-Q, Drug Center form: INJ, BID, Dosing Weight 86.364, kg, Start date: 07/13/13 21:00:00, Duration: 30 day, Stop date: 08/12/13 9:00:00Same as Levemir "single patient use only" pneumococcal 0.5 ml, Route: No Longer SYSTEM [facility] 23-valent IM, Drug Form: Active 2012 Medical vaccine INJ, Start date: [place] 07/13/13 9:00:00, Stop date: 07/13/13 9:00:00 influenza virus 0.5 ml, Route: No Longer SYSTEM 07/13[facility] vaccine, IM, Drug Form: Active 2012 Medical inactivated SUSP, Start Center date: 07/13/13 9:00:00, Stop date: 07/13/13 9:00:00 lisinopril 20 mg, 1 tab, No Longer [facility] Route: PO, Drug Active 2012 Medical form: TAB, Center Daily, Dosing Weight 86.364, kg, Start date: 07/13/13 9:00:00, Duration: 30 day, Stop date: 08/11/13 9:00:00(Same as: Prinivil, Zestril) metoprolol 50 mg, Route: No Longer [place] [facility] tartrate PO, Drug form: Active 2012 Medical TAB, Daily, Center Dosing Weight 86.364, kg, Start date: 07/13/13 9:00:00, Duration: 30 day, Stop date: 08/11/13 9:00:00 Lyrica 150 mg, 2 cap, No Longer [facility] Route: PO, Drug Active 2012 Medical form: CAP, BID, Center Dosing Weight 86.364, kg, Start date: 07/13/13 9:00:00, Duration: 30 day, Stop date: 08/11/13 17:00:00(Same as: Lyrica) potassium 20 mEq, 1 tab, No Longer [facility] chloride Route: PO, Drug Active 2012 Medical form: ERTAB, Center Daily, Dosing Weight 86.364, kg, Start date: 07/13/13 9:00:00, Duration: 30 day, Stop date: 08/11/13 9:00:00(Same as: K-Dur 20) "Do Not Crush" With food and full glass of water Effient 10 mg, 1 tab, No Longer [facility] Route: PO, Drug Active 2012 Medical form: TAB, Center Daily, Dosing Weight 86.364, kg, Start date: 07/13/13 9:00:00, Duration: 30 day, Stop date: 08/11/13 9:00:00Same as Effient For patients 60kg, without history of TIA/Ischemic stroke and without likely bypass surgery Protonix 40 mg, 1 tab, No Longer [facility] Route: PO, Drug Active 2012 Medical form: ECTAB, Center BID-Before Meals, Dosing Weight 86.364, kg, Start date: 07/13/13 9:00:00, Stop date: 08/11/13 16:30:00Tablet should not be chewed or crushed. (Same as: Protonix) meloxicam 7.5 mg, Route: No Longer [place] [facility] PO, Drug form: Active 2012 Medical TAB, BID, Dosing Center Weight 86.364, kg, Start date: 07/13/13 9:00:00, Duration: 30 day, Stop date: 08/11/13 17:00:00 magnesium oxide 400 mg, 1 tab, No Longer [facility] Route: PO, Drug Active 2012 Medical form: TAB, Center Daily, Dosing Weight 86.364, kg, Start date: 07/13/13 9:00:00, Duration: 30 day, Stop date: 08/11/13 9:00:00(Same as: Mag-Ox 400) Magnesium oxide [id number] elemental magnesium Dose=____mg magnesium oxide (___mg elemental magnesium) furosemide 40 40 mg, 1 tab, No Longer [facility] mg oral tablet Route: PO, Drug Active 2012 Medical form: TAB, Center Daily, Dosing Weight 86.364, kg, Start date: 07/13/13 9:00:00, Duration: 30 day, Stop date: 08/11/13 9:00:00(Same as: Lasix) May cause GI upset. Give with food or milk. ferrous sulfate 325 mg, 1 tab, No Longer [facility] Route: PO, Drug Active 2012 Medical form: ECTAB, Center TID, Dosing Weight 86.364, kg, Start date: 07/13/13 9:00:00, Duration: 30 day, Stop date: 08/11/13 17:00:00Give with food. "Do Not Crush" clonazepam 0.5 mg, 1 tab, No Longer [facility] Route: PO, Drug Active 2012 Medical form: TAB, TID, Center Dosing Weight 86.364, kg, Start date: 07/13/13 9:00:00, Duration: 30 day, Stop date: 08/11/13 17:00:00(Same As: Klonopin) Insulin regular 5 unit, 0.05 mL, No Longer [facility] Route: SUB-Q, Active 2012 Medical Drug form: [...] 10 mg, 2 mL, No Longer Adolfo [facility] Route: IVP, Drug Active 2012 Medical form: INJ, Q6H, Center Dosing Weight 86.364, kg, Start date: 07/13/13 0:00:00, Duration: 30 day, Stop date: 08/11/13 18:00:00(Same as: Reglan) normal saline 1,000 mL, Rate: No Longer [facility] 0.9% IV 1,000 200 ml/hr, Active 2012 Medical mL Infuse over: 5 Center hr, Route: IV, Dosing Weight 86.364 kg, Total Volume: 1,000, Start date: 07/12/13 21:08:00, Duration: 3 doses or times, Stop date: 07/13/13 12:07:00 metoprolol 50 mg, 1 tab, No Longer Adolfo [facility] tartrate Route: PO, Drug Active 2012 Medical form: TAB, Q12H, Center Dosing Weight 86.364, kg, Start date: 07/12/13 21:00:00, Duration: 30 day, Stop date: 08/11/13 9:00:00(Same as: Lopressor) Levemir 12 unit, 0.12 No Longer [facility] mL, Route: Active 2012 Medical SUB-Q, Drug [place] form: INJ, BID, Dosing Weight 86.364, kg, Start date: 07/12/13 21:00:00, Duration: 30 day, Stop date: 08/11/13 9:00:00Same as Levemir "single patient use only" Cymbalta 120 mg, 2 cap, No Longer [facility] Route: PO, Drug Active 2012 Medical form: DRC, Center Bedtime, Dosing Weight 86.364, kg, Start date: 07/12/13 21:00:00, Duration: 30 day, Stop date: 08/10/13 21:00:00Non Formulary Drug (Same as: Cymbalta) (Do Not Crush) ProAir HFA 90 2 puff, Route: No Longer [place] [facility] mcg/inh INHALATION, Drug Active 2012 Medical inhalation Form: AERO/A, Center aerosol with Dosing Weight adapter 86.364, kg, QID, PRN Shortness of breath, Start date: 07/12/13 20:09:00, Duration: 30 day, Stop date: 08/11/13 20:08:00Albutero l 90 microgram/inh 8gm HFA Same as: Alessio Arevalotil aspirin 81 mg 81 mg, 1 tab, No Longer [facility] [place] tablet, enteric Route: PO, Drug Active 2012 Medical coated form: ECTAB, [place] Daily, Dosing Weight 86.364, kg, Start date: 07/12/13 20:00:00, Duration: 30 day, Stop date: 08/11/13 9:00:00Do not crush or chew. (Same As: Ecotrin) glucagon 1 mg, Route: IM, No Longer Adolfo [facility] Drug form: Active 2012 Medical PDR/INJ, PRN, Center Dosing Weight 86.364, kg, PRN Blood Glucose Results, Start date: 07/12/13 18:26:00, Duration: 30 day, Stop date: 08/11/13 18:25:00 Dextrose 50% 12.5 gm, 25 mL, No Longer [facility] Syringe Route: IVP, Drug Active 2012 Medical Form: INJ, Center Dosing Weight 86.364, kg, PRN, PRN Blood Glucose Results, Start date: 07/12/13 18:26:00, Duration: 30 day, Stop date: 08/11/13 18:25:00 insulin aspart 4 unit, 0.04 mL, No Longer [facility] Route: SUB-Q, Active 2012 Medical Drug form: SOLN, [place] TID-Before Meals, Dosing Weight 86.364, kg, PRN Blood Glucose Results, Start date: 07/12/13 18:26:00, Duration: 30 day, Stop date: 08/11/13 18:25:00Roll in palms of hands gently; Do not shake vigorously. (Same as: NovoLog) "single patient use only" Stable for 28 days at room temperature. Expires in days from Da te tramadol 50 mg 50 mg, 1 tab, No Longer [facility] oral tablet Route: PO, Drug Active 2012 Medical form: TAB, Q4H, Center Dosing Weight 86.364, kg, PRN as needed for pain, Start date: 07/12/13 18:24:00, Duration: 30 day, Stop date: 08/11/13 18:23:00Not to exceed 400mg/day. (Same As: Ultram) acetaminophen-h 1 tab, Route: No Longer [facility] ydrocodone 325 PO, Drug Form: Active 2012 Medical mg-5 mg oral TAB, Dosing Center tablet Weight 86.364, kg, Q4H, PRN Pain, Start date: 07/12/13 18:23:00, Duration: 30 day, Stop date: 08/11/13 18:22:00(Same as: [place] 325/5) Do not exceed 4gm/day of acetaminophen. Flexeril 10 mg, 1 tab, No Longer Adolfo [facility] Route: PO, Drug Active 2012 Medical form: TAB, TID, Center Dosing Weight 86.364, kg, PRN Spasm, Start date: 07/12/13 18:23:00, Duration: 30 day, Stop date: 08/11/13 18:22:00(Same As: Flexeril) benzonatate 100 mg, 1 cap, No Longer [facility] Route: PO, Drug Active 2012 Medical form: CAP, TID, Center Dosing Weight 86.364, kg, PRN as needed for cough, Start date: 07/12/13 18:23:00, Duration: 30 day, Stop date: 08/11/13 18:22:00(Same As: Oleksandr Francis) "Do Not Crush" Saline Flush 5 ml, Route: No Longer [facility] 0.9% IVP, Drug Form: Active 2012 Medical INJ, Dosing Center Weight 86.364, kg, PRN, PRN Line Flush, Start date: 07/12/13 18:22:00, Duration: 30 day, Stop date: 08/11/13 18:21:00(Same as: BD Posiflush) ondansetron 4 mg, 2 mL, No Longer [facility] Route: IVP, Drug Active 2012 Medical form: INJ, Q8H, Center Dosing Weight 86.364, kg, PRN Nausea & Vomiting, Start date: 07/12/13 18:22:00, Duration: 30 day, Stop date: 08/11/13 18:21:00(Same as: Zofran) aspirin 81 mg 81 mg, 1 tab, Active [facility] tablet, enteric PO, Daily, 0 2012 Medical coated tab, Center Substitution Allowed, ECTAB Klor-Con M20 20 mEq, 1 tab, No Longer [facility] oral tablet, PO, Daily, 180 Active 2012 Medical extended tab, Center release Substitution Allowed, ERTAB furosemide 40 40 mg, 1 tab, No Longer [facility] mg oral tablet PO, Daily, 30 Active 2012 Medical tab, Center Substitution Allowed, TAB benzonatate 100 PO, TID, PRN, 1 Active [facility] mg oral capsule to 2 tabs, prn, 2012 Medical Substitution Center Allowed1 to 2 tabs metoprolol 50 mg, 1 tab, No Longer [facility] tartrate 50 mg PO, Daily, 180 Active 2012 Medical oral tablet tab, Center Substitution Allowed, TAB Reglan 10 mg, 2 mL, Inactive Clover [place] 07/12[facility] Route: IVP, Drug 2012 Medical form: INJ, ONCE, Center Dosing Weight 86.364, kg, Priority: STAT, Start date: 07/12/13 12:12:00, Stop date: 07/12/13 12:12:00(Same as: Reglan) Zofran 4 mg, Route: Inactive erick 07/12[facility] IVP, Drug form: 2012 Medical INJ, ONCE, Center Dosing Weight 86.364, kg, Priority: STAT, Start date: 07/12/13 10:52:00, Stop date: 07/12/13 10:52:00 morphine 4 mg, Route: Inactive [facility] 07/12[facility] [...] Stop date: 07/12/13 11:05:00, Bolus DoseBolus Dose [place] 5/325 1 tab, Route: Inactive Clover Simmons [...] ODT 8 mg, Route: PO, Inactive Tiara [facility] Drug form: 2012 Medical TABDIS, ONCE, Center Dosing Weight 86.364, kg, Priority: STAT, Start date: 07/12/13 6:56:00, Stop date: 07/12/13 6:56:00 Levemir 10 unit, 0.1 mL, Inactive Tiara 07/12[facility] Route: SUB-Q, 2012 Medical Drug form: INJ, Center ONCE, Dosing Weight 86.364, kg, Start date: 07/12/13 4:20:00, Stop date: 07/12/13 4:20:00Same as Levemir "single patient use only" Omnipaque 100 mL, Route: Inactive [place] 07/12[facility] Fei 350mg/ml IVP, Drug Form: 2012 Medical SOLN, Dosing Center Weight 86.364, kg, ONCALL, STAT, Start date: 07/12/13 4:18:00, Duration: 1 doses or times, Dose=2.2ml/kg, Max [id number] -- "To be infused by Radiology Staff ONLY"Dose=2.2ml/ kg, Max [id number]=[id number] -- "To be infused by Radiology Staff [...] mg, 1 tab, PO No Longer Omidvar [facility] Route: PO, Drug Active 2012 Medical form: TAB, Center Daily, Dosing Weight 90, kg, Start date: 04/03/13 9:00:00, Duration: 30 day, Stop date: 05/02/13 9:00:00 Lyrica 150 mg, 2 cap, PO No Longer Omidvar [facility] Route: PO, Drug Active 2012 Medical form: CAP, BID, Center Dosing Weight 90, kg, Start date: 04/03/13 9:00:00, Duration: 30 day, Stop date: 05/02/13 17:00:00 Protonix 40 mg, 1 tab, PO No Longer Omidvar [facility] Route: PO, Drug Active 2012 Medical form: ECTAB, Center BID, Dosing Weight 90, kg, Start date: 04/03/13 9:00:00, Duration: 30 day, Stop date: 05/02/13 17:00:00 metoclopramide 10 mg, 1 tab, PO No Longer Omidvar [facility] 10 mg oral Route: PO, Drug Active 2012 Medical tablet form: TAB, TID, Center Dosing Weight 90, kg, Start date: 04/03/13 9:00:00, Duration: 30 day, Stop date: 05/02/13 17:00:00 meloxicam 7.5 mg, 1 tab, PO No Longer Omidvar [facility] Route: PO, Drug Active 2012 Medical form: TAB, BID, Center Dosing Weight 90, kg, Priority: Routine, Start date: 04/03/13 9:00:00, Duration: 30 day, Stop date: 05/02/13 17:00:00 lisinopril 20 mg, Route: PO No Longer Omidvar [facility] PO, Drug form: Active 2012 Medical TAB, Daily, Center Dosing Weight 90, kg, Start date: 04/03/13 9:00:00, Duration: 30 day, Stop date: 05/02/13 9:00:00 Levemir 12 unit, Route: SUB-Q No Longer Omidvar [facility] SUB-Q, BID, Active 2012 Medical Dosing Weight Center 90, kg, Start date: 04/03/13 9:00:00, Duration: 30 day, Stop date: 05/02/13 17:00:00 ferrous sulfate 325 mg, 1 tab, PO No Longer Omidvar Route: PO, Drug Active 2012 Medical form: ECTAB, [place] TID, Dosing Weight 90, kg, Start date: 04/03/13 9:00:00, Duration: 30 day, Stop date: 05/02/13 17:00:00 clonazepam 0.5 mg, 1 tab, PO No Longer Omidvar Route: PO, Drug Active 2012 Medical form: TAB, TID, Center Dosing Weight 90, kg, Start date: 04/03/13 9:00:00, Duration: 30 day, Stop date: 05/02/13 17:00:00 NovoLog 6 unit, 0.06 mL, SUB-Q No Longer Omidvar [facility] Route: SUB-Q, Active 2012 Medical Drug form: SOLN, [place] TID-Before Meals, Dosing Weight 90, kg, Start date: 04/03/13 7:30:00, Duration: 30 day, Stop date: 05/02/13 16:30:00 heparin 5000 5,000 unit, 1 SUB-Q No Longer Omidvar [facility] units/mL mL, Route: Active 2012 [facility] injectable SUB-Q, Drug [place] solution form: INJ, Q8H, Dosing Weight 90, kg, Start date: 04/03/13 0:00:00, Duration: 30 day, Stop date: 05/02/13 16:00:00 Cymbalta 120 mg, 2 cap, PO No Longer Omidvar Route: PO, Drug Active 2012 Medical form: DRC, [place] Bedtime, Dosing Weight 90, kg, Start date: 04/02/13 23:30:00, Duration: 30 day, Stop date: 05/02/13 21:00:00 Zocor 40 mg, 1 tab, PO No Longer Omidvar Route: PO, Drug Active 2012 Medical form: TAB, Center Bedtime, Dosing Weight 90, kg, Start date: 04/02/13 21:00:00, Duration: 30 day, Stop date: 05/01/13 21:00:00 Cymbalta 60 mg, 1 cap, PO No Longer Omidvar [facility] Route: PO, Drug Active 2012 Medical form: DRC, Center Bedtime, Dosing Weight 90, kg, Start date: 04/02/13 21:00:00, Duration: 30 day, Stop date: 05/01/13 21:00:00 magnesium oxide 400 mg, 1 tab, PO No Longer Omidvar [facility] Route: PO, Drug Active 2012 Medical form: TAB, Center Daily, Dosing Weight 90, kg, Priority: NOW, Start date: 04/02/13 20:45:00, Duration: 30 day, Stop date: 05/02/13 9:00:00 Levemir 12 unit, 0.12 SUB-Q No Longer Omidvar [facility] mL, Route: Active 2012 Medical SUB-Q, Drug Center form: INJ, BID, Dosing Weight 90, kg, Start date: 04/02/13 20:45:00, Duration: 30 day, Stop date: 05/02/13 17:00:00 hydrALAZINE 10 mg, 0.5 mL, IVP No Longer Omidvar [facility] Route: IVP, Drug Active 2012 Medical form: INJ, Q4H, Center Dosing Weight 90, kg, PRN Hypertension, Start date: 04/02/13 20:37:00, Duration: 30 day, Stop date: 05/02/13 20:36:00 lisinopril 20 mg, 1 tab, PO No Longer Omidvar [facility] Route: PO, Drug Active 2012 Medical form: TAB, Center Daily, Dosing Weight 90, kg, Start date: 04/02/13 20:30:00, Duration: 30 day, Stop date: 05/02/13 9:00:00 metoprolol 12.5 mg, 1 ea, PO No Longer Omidvar [facility] tartrate Route: PO, Drug Active 2012 Medical form: TAB, BID, Center Dosing Weight 90, kg, Start date: 04/02/13 20:30:00, Duration: 30 day, Stop date: 05/02/13 17:00:00 insulin aspart 8 unit, 0.08 mL, SUB-Q No Longer Omidvar [facility] Route: SUB-Q, Active 2012 Medical Drug form: SOLN, Center TID-Before Meals, Dosing Weight 90, kg, PRN Blood Glucose Results, Start date: 04/02/13 20:30:00, Duration: 30 day, Stop date: 05/02/13 20:29:00 glucagon 1 mg, Route: IM, IM No Longer Omidvar [facility] Drug form: Active 2012 Medical PDR/INJ, PRN, Center Dosing Weight 90, kg, PRN Blood Glucose Results, Start date: 04/02/13 20:30:00, Duration: 30 day, Stop date: 05/02/13 20:29:00 Dextrose 50% 25 gm, 50 mL, IVP No Longer Omidvar [facility] Syringe Route: IVP, Drug Active 2012 Medical Form: INJ, Center Dosing Weight 90, kg, PRN, PRN Blood Glucose Results, Start date: 04/02/13 20:30:00, Duration: 30 day, Stop date: 05/02/13 20:29:00 Insulin regular 8 unit, Route: SUB-Q No Longer Omidvar [facility] SUB-Q, Active 2012 Medical TID-Before Center Meals, Dosing Weight 90, kg, PRN Blood Glucose Results, Start date: 04/02/13 20:29:00, Duration: 30 day, Stop date: 05/02/13 20:28:00 glucagon 1 mg, Route: IM, IM No Longer Omidvar [facility] PRN, Dosing Active 2012 Medical Weight 90, kg, Center PRN Blood Glucose Results, Start date: 04/02/13 20:29:00, Duration: 30 day, Stop date: 05/02/13 20:28:00 Dextrose 50% 50 mL, Route: IVP No Longer Omidvar 04/03[facility] Syringe IVP, Dosing Active 2012 Medical Weight 90, kg, Center PRN, PRN Blood Glucose Results, Start date: 04/02/13 20:29:00, Duration: 30 day, Stop date: 05/02/13 20:28:00 Zofran 4 mg, 2 mL, IV No Longer Omidvar [facility] Route: IV, Drug Active 2012 Medical form: INJ, Q8H, Center Dosing Weight 90, kg, PRN Nausea, Start date: 04/02/13 20:29:00, Duration: 30 day, Stop date: 05/02/13 20:28:00 Maalox Advanced 30 mL, Route: PO No Longer Omidvar [facility] Regular PO, Drug Form: Active 2012 Medical Strength SUSP SUSP, Dosing Center Weight 90, kg, QID, PRN Indigestion, Start date: 04/02/13 20:28:00, Duration: 30 day, Stop date: 05/02/13 20:27:00 Flexeril 10 mg, 1 tab, PO No Longer Omidvar [facility] Route: PO, Drug Active 2012 Medical form: TAB, TID, Center Dosing Weight 90, kg, PRN Spasm, Start date: 04/02/13 20:22:00, Duration: 30 day, Stop date: 05/02/13 20:21:00 acetaminophen-h 1 tab, Route: PO No Longer Omidvar [facility] ydrocodone 325 PO, Drug Form: Active 2012 Medical mg-5 mg oral TAB, Dosing Center tablet Weight 90, kg, Q4H, PRN Pain, Start date: 04/02/13 20:22:00, Duration: 30 day, Stop date: 05/02/13 20:21:00 Phenergan 12.5 mg, 0.5 mL, IVPB No Longer Mitch [facility] Route: IVPB, Active 2012 Medical Drug form: INJ, Center ONCE, Dosing Weight 90, kg, Start date: 04/02/13 20:11:00, Stop date: 04/02/13 20:11:00 morphine 4 mg, 1 mL, IVP No Longer Mitch [facility] Sulfate Route: IVP, Drug Active 2012 Medical form: INJ, ONCE, Center Dosing Weight 90, kg, Start date: 04/02/13 20:10:00, Stop date: 04/02/13 20:10:00 Phenergan 12.5 mg, 0.5 mL, IVPB No Longer Zhang [facility] Route: IVPB, Active 2012 Medical Drug form: INJ, Center ONCE, Dosing Weight 90, kg, Priority: STAT, Start date: 04/02/13 17:11:00, Stop date: 04/02/13 17:11:00 Zofran 4 mg, 2 mL, IVP No Longer Zhang [facility] Route: IVP, Drug Active 2012 Medical form: INJ, ONCE, Center Dosing Weight 90, kg, Priority: STAT, Start date: 04/02/13 16:52:00, Stop date: 04/02/13 16:52:00 nitroglycerin 0.4 mg, 1 tab, SL No Longer Kiki [facility] Route: SL, Drug Active 2012 Medical form: TAB, Center Q5Min, Dosing Weight 90, kg, PRN Chest Pain, Priority: STAT, Start date: 04/02/13 16:31:00, Duration: 3 doses or times, Stop date: Limited # of times aspirin 325 mg, 1 tab, PO No Longer Kiki [facility] Route: PO, Drug Active 2012 Medical form: ECTAB, Center ONCE, Dosing Weight 90, kg, Priority: STAT, Start date: 04/02/13 16:31:00, Stop date: 04/02/13 16:31:00 morphine 4 mg, 1 mL, IVP No Longer Kiki [facility] Sulfate Route: IVP, Drug Active 2012 Medical form: INJ, ONCE, Center Dosing Weight 90, kg, Start date: 04/02/13 16:30:00, Stop date: 04/02/13 16:30:00 erythromycin 1 cap, PO, Q12H, PO Active Osuagwu [facility] 250 mg oral 14 cap, 2012 Medical enteric coated Substitution Center tablet Allowed, ECTAB GI cocktail 30 ml, Route: PO No Longer Osuagwu [facility] PO, Drug Form: Active 2012 Medical SUSP, Dosing Center Weight 90, kg, ONCE, Routine, Start date: 03/08/13 16:26:00, Stop date: 03/08/13 16:26:00 erythromycin 250 mg, 1 cap, PO No Longer Osuagwu [facility] 250 mg oral Route: PO, Drug Active 2012 Medical enteric coated form: ECCAP, Center tablet Q12H, Dosing Weight 90, kg, Start date: 03/08/13 12:00:00, Duration: 30 day, Stop date: 04/07/13 9:00:00 magnesium 2 gm, 50 mL, IVPB No Longer Osuagwu [facility] sulfate Route: IVPB, Active 2012 Medical Drug form: INJ, Center Q2H, Dosing Weight 90, kg, Total Dose=4 gm, Start date: 03/08/13 12:00:00, Duration: 2 doses or times, Stop date: 03/08/13 14:00:00, For Mg=1.5 - 1.7 mg/dLFor Mg=1.5 - 1.7 mg/dL insulin aspart 5 unit, 0.05 mL, SUB-Q No Longer Camcioglu [facility] Route: SUB-Q, Active 2012 Medical Drug form: [facility] ONCE, Dosing Weight 90, kg, Start date: 03/08/13 3:17:00, Stop date: 03/08/13 3:17:00 Zocor 40 mg, 1 tab, PO No Longer Talon [facility] Route: PO, Drug Active 2012 Medical form: TAB, Center Bedtime, Dosing Weight 90, kg, Start date: 03/07/13 21:00:00, Duration: 30 day, Stop date: 04/05/13 21:00:00 Cymbalta 120 mg, 2 cap, PO No Longer Talon [facility] Route: PO, Drug Active 2012 Medical form: [...] unit, 0.1 mL, SUB-Q No Longer Talon [facility] Route: SUB-Q, Active 2012 Medical Drug form: SOLN, Center ONCE, Dosing Weight 90, kg, Start date: 03/07/13 19:16:00, Stop date: 03/07/13 19:16:00 Lyrica 150 mg, 2 cap, PO No Longer Talon [facility] Route: PO, Drug Active 2012 Medical form: CAP, BID, Center Dosing Weight 90, kg, Start date: 03/07/13 17:00:00, Duration: 30 day, Stop date: 04/06/13 9:00:00 Protonix 40 mg, 1 tab, PO No Longer Talon [facility] Route: PO, Drug Active 2012 Medical form: ECTAB, Center BID, Dosing Weight 90, kg, Start date: 03/07/13 17:00:00, Duration: 30 day, Stop date: 04/06/13 9:00:00 meloxicam 7.5 mg, 1 tab, PO No Longer Talon [facility] Route: PO, Drug Active 2012 Medical form: TAB, Center BID-Meals, Dosing Weight 90, kg, Start date: 03/07/13 17:00:00, Duration: 30 day, Stop date: 04/06/13 8:00:00 Flexeril 10 mg, 1 tab, PO No Longer Talon [facility] Route: PO, Drug Active 2012 Medical form: TAB, BID, Center Dosing Weight 90, kg, Start date: 03/07/13 17:00:00, Duration: 30 day, Stop date: 04/06/13 9:00:00 NovoLog FlexPen 6 unit, 0.06 mL, SUB-Q No Longer Osuagwu [facility] Route: SUB-Q, Active 2012 Medical Drug form: SOLN, Center TID-Before Meals, Start date: 03/07/13 16:30:00, Duration: 30 day, Stop date: 04/06/13 11:30:00 Humalog 6 unit, Route: SUB-Q No Longer Talon [facility] SUB-Q, Active 2012 Medical TID-Before Center Meals, Dosing Weight 90, kg, Start date: 03/07/13 16:30:00, Duration: 30 day, Stop date: 04/06/13 11:30:00 heparin 5,000 unit, 1 SUB-Q No Longer Talon [facility] mL, Route: Active 2012 Medical SUB-Q, Drug Center form: INJ, Q8H, Dosing Weight 90, kg, Start date: 03/07/13 16:00:00, Duration: 30 day, Stop date: 04/06/13 8:00:00 Effient 10 mg, 1 tab, PO No Longer Talon [facility] Route: PO, Drug Active 2012 Medical form: TAB, Center Daily, Dosing Weight 90, kg, Start date: 03/07/13 13:30:00, Duration: 30 day, Stop date: 04/06/13 9:00:00 magnesium oxide 400 mg, 1 tab, PO No Longer Talon [facility] Route: PO, Drug Active 2012 Medical form: TAB, Center Daily, Dosing Weight 90, kg, Start date: 03/07/13 13:30:00, Duration: 30 day, Stop date: 04/06/13 9:00:00 lisinopril 20 mg, 1 tab, PO No Longer Talon [facility] Route: PO, Drug Active 2012 Medical form: TAB, Center Daily, Dosing Weight 90, kg, Start date: 03/07/13 13:30:00, Duration: 30 day, Stop date: 04/06/13 9:00:00 Reglan 5 mg, 1 tab, PO No Longer Talon [facility] Route: PO, Drug Active 2012 Medical form: TAB, TID, Center Dosing Weight 90, kg, Start date: 03/07/13 13:00:00, Duration: 30 day, Stop date: 04/06/13 9:00:00 ferrous sulfate 325 mg, 1 tab, PO No Longer Talon 03/07[facility] Route: PO, Drug Active 2012 Medical form: ECTAB, Center TID, Dosing Weight 90, kg, Start date: 03/07/13 13:00:00, Duration: 30 day, Stop date: 04/06/13 9:00:00 clonazepam 0.5 mg, 1 tab, PO No Longer Talon 03/07[facility] Route: PO, Drug Active 2012 Medical form: TAB, TID, Center Dosing Weight 90, kg, Start date: 03/07/13 13:00:00, Duration: 30 day, Stop date: 04/06/13 9:00:00 NovoLog 6 unit, SUB-Q, SUB-Q No Longer 07/02/ [facility] [place] TID-Before Active 2012 Medical Meals, Center Substitution Allowed Levemir 12 unit, SUB-Q, SUB-Q Active [place] BID, 2012 Medical Substitution Center Allowed NS 1,000 mL 1,000 mL, Rate: IV No Longer Talon Fei 125 ml/hr, Active 2012 Medical Infuse over: 8 Center hr, Route: IV, Dosing Weight 90 kg, Total Volume: 1,000, Start date: 03/07/13 12:19:00, Duration: 30 day, Stop date: 04/06/13 12:18:00 insulin aspart 2 unit, 0.02 mL, SUB-Q No Longer Talon [place] Route: SUB-Q, Active 2012 Medical Drug form: SOLN, Center TID-Before Meals, Dosing Weight 90, kg, PRN Blood Glucose Results, Start date: 03/07/13 11:55:00, Duration: 30 day, Stop date: 04/06/13 11:54:00 glucagon 1 mg, Route: IM, IM No Longer Talon [place] Drug form: Active 2012 Medical PDR/INJ, PRN, Center Dosing Weight 90, kg, PRN Blood Glucose Results, Start date: 03/07/13 11:55:00, Duration: 30 day, Stop date: 04/06/13 11:54:00 Dextrose 50% 12.5 gm, 25 mL, IVP No Longer Talon [place] Syringe Route: IVP, Drug Active 2012 Medical Form: INJ, Center Dosing Weight 90, kg, PRN, PRN Blood Glucose Results, Start date: 03/07/13 11:55:00, Duration: 30 day, Stop date: 04/06/13 11:54:00 Phenergan 12.5 mg, 0.5 mL, IVPB No Longer Talon [facility] Route: IVPB, Active 2012 Medical Drug form: INJ, Center Q4H, Dosing Weight 90, kg, PRN Nausea & Vomiting, Start date: 03/07/13 11:53:00, Duration: 30 day, Stop date: 04/06/13 11:52:00 albuterol 2.49 mg, 3 mL, NEB No Longer Talon [place] 0.083% Route: NEB, Drug Active 2012 Medical inhalation form: SOLN, Center solution RQ4H, Dosing Weight 90, kg, PRN as needed for wheezing, Start date: 03/07/13 11:53:00, Duration: 30 day, Stop date: 04/06/13 11:52:00 Zofran 4 mg, 2 mL, IVP No Longer Talon [facility] Route: IVP, Drug Active 2012 Medical form: INJ, Q4H, Center Dosing Weight 90, kg, PRN Nausea, Start date: 03/07/13 11:53:00, Duration: 30 day, Stop date: 04/06/13 11:52:00 acetaminophen-h 1 tab, Route: PO No Longer Talon [facility] ydrocodone 325 PO, Drug Form: Active 2012 Medical mg-10 mg oral TAB, Dosing Center tablet Weight 90, kg, Q4H, PRN Pain Score 4-6, Start date: 03/07/13 11:51:00, Duration: 30 day, Stop date: 04/06/13 11:50:00 acetaminophen-h 1 tab, Route: PO No Longer Talon [facility] ydrocodone 325 PO, Drug Form: Active 2012 Medical mg-5 mg oral TAB, Dosing Center tablet Weight 90, kg, Q4H, PRN Pain Score 1-3, Start date: 03/07/13 11:51:00, Duration: 30 day, Stop date: 04/06/13 11:50:00 acetaminophen 650 mg, 2 tab, PO No Longer Talon [facility] Route: PO, Drug Active 2012 Medical form: TAB, Q4H, Center Dosing Weight 90, kg, PRN Pain 1-3/Temp > 100.4 F, Start date: 03/07/13 11:51:00, Duration: 30 day, Stop date: 04/06/13 11:50:00 morphine 2 mg, 1 mL, IVP No Longer Talon [facility] Sulfate Route: IVP, Drug Active 2012 Medical form: INJ, Q4H, Center Dosing Weight 90, kg, PRN Pain Score 7-10, Start date: 03/07/13 11:51:00, Duration: 30 day, Stop date: 04/06/13 11:50:00 docusate 100 mg, 1 cap, PO No Longer Talon [facility] Route: PO, Drug Active 2012 Medical form: CAP, BID, Center Dosing Weight 90, kg, PRN Constipation, Start date: 03/07/13 11:51:00, Duration: 30 day, Stop date: 04/06/13 11:50:00 Levemir 12 unit, 0.12 SUB-Q No Longer Chambers [facility] mL, Route: Active 2012 Medical SUB-Q, Drug Center form: INJ, ONCE, Dosing Weight 90, kg, Start date: 03/07/13 6:10:00, Stop date: 03/07/13 6:10:00 lidocaine-epi 1 ml, Route: SUB-Q No Longer Kiki [facility] [id number] SUB-Q, Drug Active 2012 Medical Form: SOLN, Center Dosing Weight 90, kg, ONCE, STAT, Start date: 03/07/13 5:18:00, Stop date: 03/07/13 5:18:00 Insulin regular 99 mL, Rate: IVPB No Longer Kiki [facility] 100 unit + Start Insulin Active 2012 [...] gm, 25 mL, IVP No Longer Kiki [facility] Syringe Route: IVP, Drug Active 2012 Medical Form: INJ, Center Dosing Weight 90, kg, PRN, PRN Blood Glucose Results, Start date: 03/07/13 5:13:00, Duration: 30 day, Stop date: 04/06/13 5:12:00 NS (Bolus) IV 1,000 mL, Rate: IV No Longer Kiki [facility] 1,000 mL 1,000 ml/hr, Active 2012 Medical Infuse over: 1 Center hr, Route: IV, Dosing Weight 90 kg, Total Volume: 1,000, Priority: STAT, Start date: 03/07/13 2:36:00, Duration: 1 doses or times, Stop date: 03/07/13 3:35:00, Bolus DoseBolus Dose magnesium 2 gm, 50 mL, IVPB No Longer Kiki [place] sulfate Route: IVPB, Active 2012 Medical Drug form: INJ, Center ONCE, Dosing Weight 90, kg, Start date: 03/07/13 2:35:00, Stop date: 03/07/13 2:35:00 Insulin regular 10 unit, 0.1 mL, SUB-Q No Longer Kiki [facility] Route: SUB-Q, Active 2012 Medical Drug form: SOLN, Center ONCE, Dosing Weight 90, kg, Priority: STAT, Start date: 03/07/13 2:16:00, Stop date: 03/07/13 2:16:00 Reglan 10 mg, 2 mL, IVP No Longer Kiki [facility] Route: IVP, Drug Active 2012 Medical form: INJ, ONCE, Center Dosing Weight 90, kg, Priority: STAT, Start date: 03/07/13 2:16:00, Stop date: 03/07/13 2:16:00 NS 1,000 mL 1,000 mL, Rate: IV No Longer Talon [place] 150 ml/hr, 2012 Medical Infuse over: 6.7 Center hr, Route: IV, Dosing Weight 90 kg, Total Volume: 1,000, Start date: 03/07/13 2:15:00, Duration: 30 day, Stop date: 04/06/13 2:14:00 droperidol 1.25 mg, Route: IVP No Longer Kiki [facility] IVP, ONCE, 2012 Medical Dosing Weight Center 90, kg, PRN Nausea & Vomiting, Start date: 03/07/13 0:48:00 D5W 1/2NS 1,000 1,000 mL, Rate: IV No Longer Kiki [place] mL 125 ml/hr, Active 2012 Medical Infuse over: 8 Center hr, Route: IV, Dosing Weight 90 kg, Total Volume: 1,000, Start date: 03/07/13 0:43:00, Duration: 30 day, Stop date: 04/06/13 0:42:00 Insulin regular 4 unit, 0.04 mL, SUB-Q No Longer Kiki [facility] Route: SUB-Q, Active 2012 Medical Drug form: SOLN, Center Sliding Scale, Dosing Weight 90, kg, PRN Blood Glucose Results, Start date: 03/07/13 0:01:00, Duration: 30 day, Stop date: 04/06/13 0:00:00 glucagon 1 mg, Route: IM, IM No Longer Kiki [facility] Drug form: Active 2012 Medical PDR/INJ, PRN, Center Dosing Weight 90, kg, PRN Blood Glucose Results, Start date: 03/07/13 0:01:00, Duration: 30 day, Stop date: 04/06/13 0:00:00 Dextrose 50% 25 gm, 50 mL, IVP No Longer Kiki [facility] Syringe Route: IVP, Drug Active 2012 Medical Form: INJ, Center Dosing Weight 90, kg, PRN, PRN Blood Glucose Results, Start date: 03/07/13 0:01:00, Duration: 30 day, Stop date: 04/06/13 0:00:00 NS 1,000 mL 1,000 mL, Rate: IV No Longer Kiki [facility] 125 ml/hr, Active 2012 Medical Infuse over: 8 Center hr, Route: IV, Dosing Weight 90 kg, Total Volume: 1,000, Start date: 03/06/13 23:21:00, Duration: 30 day, Stop date: 04/05/13 23:20:00 NS (Bolus) IV 1,000 mL, Rate: IV No Longer Kiki [facility] 1,000 mL 1,000 ml/hr, Active 2012 Medical Infuse over: 1 Center hr, Route: IV, Dosing Weight 90 kg, Total Volume: 1,000, Priority: STAT, Start date: 03/06/13 23:21:00, Duration: 1 doses or times, Stop date: 03/07/13 0:20:00, Bolus DoseBolus Dose [place] 5/325 1 tab, PO, Q6H, PO No Longer [place] oral tablet PRN, 30 tab, Active 2012 Medical Substitution Center Allowed, Maintenance ferrous sulfate 325 mg, 1 tab, PO Active 02/ [facility] 325 mg oral PO, TID, 30 tab, 2012 Medical enteric coated Substitution Center tablet Allowed, ECTAB acetaminophen-h 1 tab, PO, Q4H, PO Active [facility] ydrocodone 500 PRN, for pain, 2012 Medical mg-7.5 mg oral Substitution Center tablet Allowed, Maintenance, TAB meloxicam 7.5 7.5 mg, 1 tab, PO Active [place] [facility] mg oral tablet PO, BID, WITH 2012 Medical FOOD, 30 tab, [place] Substitution Allowed, TABWITH FOOD Zocor 40 mg 40 mg, 1 tab, PO Active [place] [facility] oral tablet PO, Bedtime, 30 2012 Medical tab, Center Substitution Allowed, Maintenance ProAir HFA 90 Substitution Active [facility] mcg/inh Allowed, 2012 Medical inhalation Maintenance Center aerosol with adapter Flexeril 10 mg 10 mg, 1 tab, PO Active [place] [facility] oral tablet PO, TID, PRN, 30 2012 Medical tab, for spasm, Center Substitution Allowed, TAB Protonix 40 mg 40 mg, 1 tab, PO Active [place] [facility] oral enteric PO, BID, 30 tab, 2012 Medical coated tablet Substitution Center Allowed, ECTAB Lyrica 150 mg 150 mg, 1 cap, PO Active [place] [facility] oral capsule PO, BID, 90 cap, 2012 [facility] Substitution [place] Allowed, CAP Flagyl 500 mg 500 mg, 1 tab, PO No Longer [facility] oral tablet PO, Q6H, 30 tab, Active 2012 [facility] Substitution [place] Allowed metoclopramide 10 mg, 1 tab, PO Active [place] [facility] 10 mg oral PO, TID, 56 tab, 2012 Medical tablet Substitution Center Allowed, TAB NS (Bolus) IV 1,000 mL, Rate: IV No Longer Kiki [facility] 1,000 mL 1,000 ml/hr, Active 2012 Medical Infuse over: 1 Center hr, Route: IV, Dosing Weight 90 kg, Total Volume: 1,000, Priority: STAT, Start date: 03/06/13 21:27:00, Duration: 1 doses or times, Stop date: 03/06/13 22:26:00, Bolus DoseBolus Dose morphine 4 mg, 1 mL, IVP No Longer Kiki [facility] Sulfate Route: IVP, Drug Active 2012 Medical form: INJ, ONCE, Center Dosing Weight 90, kg, Start date: 03/06/13 21:27:00, Stop date: 03/06/13 21:27:00 Phenergan 12.5 mg, 0.5 mL, IVPB No Longer Kiki [facility] Route: IVPB, Active 2012 Medical Drug form: INJ, Center ONCE, Dosing Weight 90, kg, Priority: STAT, Start date: 03/06/13 21:26:00, Stop date: 03/06/13 21:26:00 ergocalciferol 50,000 IntlUnit, PO No Longer Jay [facility] 1 cap, Route: Active 2012 Medical PO, Drug form: Center CAP, qWeek, Dosing Weight 100, kg, Start date: 12/07/12 9:00:00, Duration: 30 day, Stop date: 01/04/13 9:00:00 erythromycin 250 mg, 1 tab, PO Active [facility] stearate 250 mg PO, Q6H, 56 tab, 2012 Medical oral tablet Substitution Center Allowed, TAB Protonix 40 mg 40 mg, 1 tab, PO Active [facility] oral enteric PO, Daily, 30 2012 Medical coated tablet tab, Center Substitution Allowed, ECTAB pravastatin 80 80 mg, 1 tab, PO Active [facility] mg oral tablet PO, Daily, 30 2012 Medical tab, Center Substitution Allowed, TAB insulin detemir 14 unit, 0.14 SUB-Q Active [facility] 100 units/mL mL, SUB-Q, 2012 Medical subcutaneous Bedtime, 100 mL, [place] solution Substitution Allowed, INJ insulin detemir 16 unit, 0.16 SUB-Q Active [facility] 100 units/mL mL, SUB-Q, 2012 Medical subcutaneous Daily, 100 mL, [place] solution Substitution Allowed, INJ Protonix 40 mg, Route: IVP No Longer Jay [facility] IVP, Drug form: Active 2012 Medical INJ, Daily, Center Dosing Weight 100, kg, Priority: NOW, Start date: 12/06/12 16:52:00, Duration: 30 day, Stop date: 01/05/13 9:00:00 insulin detemir 16 unit, 0.16 SUB-Q No Longer [place] [facility] mL, Route: Active 2012 Medical SUB-Q, Drug Center form: INJ, Daily, Dosing Weight 100, kg, Start date: 12/06/12 9:00:00, Stop date: 01/04/13 9:00:00 [place] 7.5/325 1 tab, Route: PO No Longer [place] [facility] oral tablet PO, Drug Form: Active 2012 Medical TAB, Dosing Center Weight 100, kg, ONCE, Start date: 12/06/12 0:19:00, Stop date: 12/06/12 0:19:00 Pravachol 80 mg, 4 tab, PO No Longer Brando [facility] Route: PO, Drug Active 2012 Medical form: TAB, Center Bedtime, Start date: 12/05/12 21:00:00, Duration: 30 day, Stop date: 01/03/13 21:00:00 insulin detemir 14 unit, 0.14 SUB-Q No Longer [place] [facility] mL, Route: Active 2012 Medical SUB-Q, Drug Center form: INJ, Bedtime, Dosing Weight 100, kg, Start date: 12/05/12 21:00:00, Stop date: 01/03/13 21:00:00 morphine 4 mg, 1 mL, IVP No Longer Brando [facility] Sulfate Route: IVP, Drug Active 2012 Medical form: INJ, ONCE, Center Dosing Weight 100, kg, Start date: 12/05/12 16:51:00, Stop date: 12/05/12 16:51:00 erythromycin + 250 mg, Route: IVPB No Longer Brando [facility] Sodium Chloride IVPB, Q8H, Active 2012 Medical 0.9% IV 100 mL Dosing Weight Center 100, kg, Start date: 12/05/12 16:00:00, Duration: 30 day, Stop date: 01/04/13 8:00:00 potassium 20 mEq, 100 mL, IVPB No Longer Brando [facility] chloride Route: IVPB, Active 2012 Medical Q2H, [...] 12/04/12 8:20:00 Phenergan 25 mg, 1 supp, [place] No Longer Brando Fei Route: TX, Drug Active 2012 Medical form: SUPP, Q4H, Center Dosing Weight 100, kg, PRN Nausea & Vomiting, Start date: 12/04/12 7:58:00, Duration: 30 day, Stop date: 01/03/13 7:57:00 Dextrose 50% 25 gm, 50 mL, IVP No Longer Brando [facility] Syringe Route: IVP, Drug Active 2012 Medical Form: INJ, Center Dosing Weight 100, kg, PRN, PRN Blood Glucose Results, Start date: 12/04/12 7:48:00, Duration: 30 day, Stop date: 01/03/13 7:47:00 glucagon 1 mg, Route: IM, IM No Longer Brando [place] Drug form: Active 2012 Medical PDR/INJ, PRN, Center Dosing Weight 100, kg, PRN Blood Glucose Results, Start date: 12/04/12 7:48:00, Duration: 30 day, Stop date: 01/03/13 7:47:00 insulin aspart 4 unit, 0.04 mL, SUB-Q No Longer [place] Route: SUB-Q, Active 2012 Medical Drug form: SOLN, Center Bedtime, Dosing Weight 100, kg, PRN Blood Glucose Results, Start date: 12/04/12 7:48:00, Duration: 30 day, Stop date: 01/03/13 7:47:00 Protonix 40 mg, Route: IV No Longer [place] IV, Drug form: Active 2012 Medical INJ, ONCE, Center Dosing Weight 100, kg, Start date: 12/04/12 3:12:00, Stop date: 12/04/12 3:12:00 potassium 20 mEq, 100 mL, IVPB No Longer Brando [facility] chloride Route: IVPB, Active 2012 Medical Q2H, Start date: [place] 12/03/12 8:00:00, Stop date: 12/03/12 11:00:00 potassium 40 mEq, Route: IV No Longer Brando [facility] chloride IV, ONCE, Dosing Active 2012 Medical Weight 100, kg, Center Start date: 12/03/12 7:02:00, Stop date: 12/03/12 7:02:00 NS 1,000 mL 1,000 mL, Rate: IV No Longer Brando [facility] 125 ml/hr, Active 2012 Medical Infuse over: 8 Center hr, Route: IV, kg, Total Volume: 1,000, Start date: 12/02/12 16:54:00, Duration: 30 day, Stop date: 01/01/13 16:53:00 NS (Bolus) IV 1,000 mL, Rate: IV No Longer [facility] 1,000 mL 1,000 ml/hr, Active 2012 Medical Infuse over: 1 Center hr, Route: IV, kg, Total Volume: 1,000, Priority: STAT, Start date: 12/02/12 13:12:00, Duration: 1 doses or times, Stop date: 12/02/12 14:11:00, Bolus DoseBolus Dose NS (Bolus) IV 1,000 mL, Rate: IV No Longer [facility] 1,000 mL 1,000 ml/hr, Active 2012 Medical Infuse over: 1 Center hr, Route: IV, kg, Total Volume: 1,000, Priority: STAT, Start date: 12/02/12 12:10:00, Duration: 1 doses or times, Stop date: 12/02/12 13:09:00, Bolus DoseBolus Dose insulin detemir 20 unit, 0.2 mL, SUB-Q No Longer [place] [facility] Route: SUB-Q, Active 2012 Medical Drug form: INJ, Center BID, Dosing Weight 100, kg, Start date: 12/02/12 9:00:00, Duration: 30 day, Stop date: 12/31/12 21:00:00 calcium 1,000 mg, 10 mL, IVPB No Longer [place] [facility] chloride + Route: IVPB, Active 2012 Medical Sodium Chloride ONCE, Start Center 0.9% IV 100 mL date: 12/02/12 5:08:00, Stop date: 12/02/12 5:08:00 ceftriaxone 1 gm, Route: IVPB No Longer [facility] IVPB, Drug form: Active 2012 Medical PDR/INJ, Center [id number], Dosing Weight 100, kg, Start date: 12/02/12 5:00:00, Duration: 30 day, Stop date: 12/31/12 5:00:00 calcium 1,000 mg, Route: IVPB No Longer [place] [facility] gluconate IVPB, Drug form: Active 2012 Medical INJ, ONCE, Center Dosing Weight 100, kg, Start date: 12/02/12 5:00:00, Stop date: 12/02/12 5:00:00 Dextrose 50% 25 mL, Route: IVP No Longer [place] [facility] Syringe IVP, Dosing Active 2012 Medical Weight 100, kg, Center PRN, PRN Blood Glucose Results, Start date: 12/02/12 4:51:00, Duration: 30 day, Stop date: 01/01/13 4:50:00 Insulin regular 100 mL, Rate: IVPB No Longer [place] [facility] 100 unit + Start Insulin Active 2012 [...] 4 mg, Route: IVP No Longer [place] [facility] IVP, Drug form: Active 2012 Medical INJ, ONCE, Center Dosing Weight 100, kg, Priority: STAT, Start date: 12/02/12 4:47:00, Stop date: 12/02/12 4:47:00 normal saline 1,000 mL, Rate: IV No Longer [place] 0.9% IV 1,000 1,000 ml/hr, Active 2012 Medical mL Infuse over: 1 Center hr, Route: IV, kg, Total Volume: 1,000, Start date: 12/02/12 3:19:00, Duration: 1 doses or times, Stop date: 12/02/12 4:18:00 Insulin regular 6 unit, 0.06 mL, IV No Longer [place] [facility] Route: IV, Drug Active 2012 Medical form: SOLN, Center ONCE, Dosing Weight 100, kg, Priority: STAT, Start date: 12/02/12 3:19:00, Stop date: 12/02/12 3:19:00 insulin aspart 3 unit, 0.03 mL, SUB-Q No Longer [facility] Route: SUB-Q, Active 2012 Medical Drug form: SOLN, Center Bedtime, Dosing Weight 100, kg, PRN Blood Glucose Results, Start date: 12/01/12 13:23:00, Duration: 30 day, Stop date: 12/31/12 13:22:00 NS 1,000 mL 1,000 mL, Rate: IV No Longer [facility] 150 ml/hr, Active 2012 Medical Infuse over: 6.7 Center hr, Route: IV, kg, Total Volume: 1,000, Priority: NOW, Start date: 12/01/12 13:10:00, Duration: 1 doses or times, Stop date: 12/01/12 19:51:00 Insulin regular 2 unit, 0.02 mL, SUB-Q No Longer [facility] Route: SUB-Q, Active 2012 Medical Drug form: SOLN, Center Bedtime, Dosing Weight 100, kg, PRN Blood Glucose Results, Start date: 12/01/12 13:08:00, Duration: 30 day, Stop date: 12/31/12 13:07:00 insulin aspart 4 unit, 0.04 mL, SUB-Q No Longer [facility] Route: SUB-Q, Active 2012 Medical Drug form: SOLN, Center TID-Before Meals, Dosing Weight 100, kg, PRN Blood Glucose Results, Start date: 12/01/12 13:08:00, Duration: 30 day, Stop date: 12/31/12 13:07:00 Dextrose 50% 25 gm, 50 mL, IVP No Longer [facility] Syringe Route: IVP, Drug Active 2012 Medical Form: INJ, Center Dosing Weight 100, kg, PRN, PRN Blood Glucose Results, Start date: 12/01/12 13:08:00, Duration: 30 day, Stop date: 12/31/12 13:07:00 glucagon 1 mg, Route: IM, IM No Longer [facility] Drug form: Active 2012 Medical PDR/INJ, PRN, Center Dosing Weight 100, kg, PRN Blood Glucose Results, Start date: 12/01/12 13:08:00, Duration: 30 day, Stop date: 12/31/12 13:07:00 heparin 5000 5,000 unit, 1 SUB-Q No Longer Sushila [facility] Fei units/mL mL, Route: Active 2012 Medical [...] unit, 0.01 mL, SUB-Q No Longer [facility]ando 11/30[facility] Fei Route: SUB-Q, Active 2012 Medical [...] mg, 2 mL, IV No Longer [place] [facility] Route: IV, Drug Active 2012 Medical form: INJ, Q6H, Center Dosing Weight 100, kg, PRN Nausea, Start date: 11/30/12 13:32:00, Duration: 30 day, Stop date: 12/30/12 13:31:00 insulin aspart 10 unit, 0.1 mL, SUB-Q No Longer [place]oz[place] [facility] Route: SUB-Q, Active 2012 Medical Drug form: SOLN, Center TID-Before Meals, Dosing Weight 100, kg, PRN Blood Glucose Results, Start date: 11/30/12 13:26:00, Duration: 30 day, Stop date: 12/30/12 13:25:00 Zofran 4 mg, 2 mL, IV No Longer [facility] Route: IV, Drug Active 2012 Medical form: INJ, Q8H, Center Dosing Weight 100, kg, PRN Nausea, Start date: 11/30/12 11:58:00, Duration: 30 day, Stop date: 12/30/12 11:57:00 Zofran 4 mg, 2 mL, IVP No Longer [facility] Route: IVP, Drug Active 2012 Medical form: INJ, ONCE, Center Dosing Weight 100, kg, Priority: NOW, Start date: 11/30/12 11:57:00, Stop date: 11/30/12 11:57:00 potassium 2 pkt, Route: PO No Longer [facility] [place] phosphate-sodiu PO, Drug Form: Active 2012 Medical m phosphate 250 PDR/REC, ONCE, Center mg-278 mg-164 Start date: mg oral powder 11/30/12 10:00:00, Stop date: 11/30/12 10:00:00 Dextrose 5% 1,000 mL, Rate: IV No Longer Randy [place] with 0.45% NaCl 150 ml/hr, Active 2012 [...] magnesium 2 gm, Route: IVPB No Longer [facility] Fei sulfate IVPB, Drug form: Active 2012 Medical INJ, ONCE, Center Dosing Weight 100, kg, Total dose=2 gm, Start date: 11/30/12 8:05:00, Duration: 1 doses or times, Stop date: 11/30/12 8:05:00 potassium 30 mmol, Route: IVPB No Longer [facility] Fei phosphate IVPB, ONCE, Active 2012 Medical Dosing Weight Center 100, kg, Start date: 11/30/12 8:05:00, Duration: 1 doses or times, Stop date: 11/30/12 8:05:00, For PO4=1.5 - 1.9 mg/dL; Administer when level=3 - 3.4 mEq/L in place of KClFor PO4=1.5 - 1.9 mg/dL; Administer when level=3 - 3.4 mEq/L in place of KCl heparin 5000 5,000 unit, SUB-Q No Longer [facility] Fei units/mL Route: SUB-Q, Active 2012 Medical injectable Drug form: INJ, Center solution Q8H, Dosing Weight 100, kg, Start date: 11/30/12 8:00:00, Duration: 30 day, Stop date: 12/30/12 0:00:00 insulin aspart 10 unit, 0.1 mL, SUB-Q No Longer Lozada [facility] Route: SUB-Q, Active 2012 Medical Drug form: SOLN, Center TID-Before Meals, Dosing Weight 100, kg, PRN Blood Glucose Results, Start date: 11/30/12 7:57:00, Duration: 30 day, Stop date: 12/30/12 7:56:00 glucagon 1 mg, Route: IM, IM No Longer Lozada [facility] Drug form: Active 2012 Medical PDR/INJ, PRN, Center Dosing Weight 100, kg, PRN Blood Glucose Results, Start date: 11/30/12 7:57:00, Duration: 30 day, Stop date: 12/30/12 7:56:00 Dextrose 50% 25 gm, 50 mL, IVP No Longer [facility] Syringe Route: IVP, Drug Active 2012 Medical Form: INJ, Center Dosing Weight 100, kg, PRN, PRN Blood Glucose Results, Start date: 11/30/12 7:57:00, Duration: 30 day, Stop date: 12/30/12 7:56:00 1/2 NS 1,000 mL 1,000 mL, Rate: IV No Longer Hendrix Fei 200 ml/hr, Active 2012 Medical Infuse over: 5 Center hr, Route: IV, kg, Total Volume: 1,000, Start date: 11/30/12 5:30:00, Duration: 30 day, Stop date: 12/30/12 5:29:00 heparin 5000 5,000 unit, 1 SUB-Q No Longer Hendrix [facility] units/mL mL, Route: Active 2012 Medical injectable SUB-Q, Drug Center solution form: INJ, Q8H, Dosing Weight 100, kg, Start date: 11/30/12 0:00:00, Duration: 30 day, Stop date: 12/29/12 16:00:00 hydrALAZINE 10 mg, 0.5 mL, IV No Longer [facility] Route: IV, Drug Active 2012 Medical form: INJ, Q4H, Center Dosing Weight 100, kg, PRN Hypertension, Start date: 11/29/12 22:56:00, Duration: 30 day, Stop date: 12/29/12 22:55:00 simvastatin 40 mg, 1 tab, PO No Longer Aaron [facility] Route: PO, Drug Active 2012 Medical form: TAB, Center Bedtime, Dosing Weight 101.364, kg, Start date: 11/29/12 21:00:00, Duration: 30 day, Stop date: 12/28/12 21:00:00 Cymbalta 60 mg, 1 cap, PO No Longer Aaron [facility] Route: PO, Drug Active 2012 Medical form: DRC, Center Bedtime, Dosing Weight 101.364, kg, Start date: 11/29/12 21:00:00, Stop date: 12/28/12 21:00:00 ceftriaxone 1 gm, Route: IVPB No Longer [facility] IVPB, Drug form: Active 2012 Medical PDR/INJ, Center [id number], Dosing Weight 100, kg, Start date: 11/29/12 20:00:00, Duration: 30 day, Stop date: 12/28/12 20:00:00 hydrALAZINE 5 mg, 0.25 mL, IV No Longer [facility] Route: IV, Drug Active 2012 Medical form: INJ, Q4H, Center Dosing Weight 100, kg, PRN Hypertension, Start date: 11/29/12 19:42:00, Duration: 30 day, Stop date: 12/29/12 19:41:00 Phenergan 12.5 mg, 0.5 mL, IVPB No Longer [facility] Route: IVPB, Active 2012 Medical Drug form: INJ, Center Q4H, Dosing Weight 100, kg, PRN Nausea & Vomiting, Start date: 11/29/12 17:56:00, Duration: 30 day, Stop date: 12/29/12 17:55:00 clonazepam 0.5 mg, 1 tab, PO No Longer Hendrix [facility] Route: PO, Drug Active 2012 Medical form: [...] mEq, 200 mL, IVPB No Longer [facility]ando 11/29[facility] [place] chloride 20 Route: IVPB, Active 2012 [...] mL, Rate: IV No Longer Simeon Fei 0.9% IV 1,000 200 ml/hr, Active 2012 Medical mL Infuse over: 5 Center hr, Route: IV, kg, Total Volume: 1,000, Start date: 11/29/12 14:41:00, Stop date: 12/29/12 14:45:00 Insulin regular 99 mL, Rate: IV No Longer Nicho Fei 100 unit + [...] mg, 1 tab, PO No Longer Aaron [facility] Route: PO, Drug Active 2012 Medical form: ERTAB, Center Daily, Dosing Weight 101.364, kg, Start date: 11/29/12 9:00:00, Duration: 30 day, Stop date: 12/28/12 9:00:00 clonazepam 0.5 mg, 1 tab, PO No Longer Hendrix [place] Route: PO, Drug Active 2012 Medical form: TAB, TID, Center Dosing Weight 101.364, kg, Start date: 11/29/12 9:00:00, Duration: 30 day, Stop date: 12/28/12 17:00:00 lisinopril 20 mg, 1 tab, PO No Longer [place] [facility] Route: PO, Drug Active 2012 Medical form: TAB, Q12H, Center Dosing Weight 101.364, kg, Start date: 11/29/12 9:00:00, Duration: 30 day, Stop date: 12/28/12 21:00:00 magnesium oxide 400 mg, 1 tab, PO No Longer [place] [facility] Route: PO, Drug Active 2012 Medical form: TAB, Center Daily, Dosing Weight 101.364, kg, Start date: 11/29/12 9:00:00, Duration: 30 day, Stop date: 12/28/12 9:00:00 Effient 10 mg, 1 tab, PO No Longer Aaron [facility] Route: PO, Drug Active 2012 Medical form: TAB, Center Daily, Dosing Weight 101.364, kg, Start date: 11/29/12 9:00:00, Duration: 30 day, Stop date: 12/28/12 9:00:00 Levemir 8 unit, 0.08 mL, SUB-Q No Longer Aaron [facility] Route: SUB-Q, Active 2012 Medical Drug form: [...] PO No Longer Aaron Fei Route: PO, Drug Active 2012 Medical [...] mg, 0.4 mL, SUB-Q No Longer Hendrix [facility] Route: SUB-Q, Active 2012 Medical Drug form: INJ, Center [id number], Dosing Weight 101.364, kg, Start date: 11/29/12 4:00:00, Duration: 30 day, Stop date: 12/28/12 4:00:00 Phenergan 12.5 mg, 0.25 IVPB No Longer Aaron [facility] mL, Route: IVPB, Active 2012 Medical Drug form: INJ, Center Q4H, Dosing Weight 101.364, kg, Start date: 11/29/12 4:00:00, Duration: 30 day, Stop date: 12/29/12 0:00:00 tramadol 50 mg 50 mg, 1 tab, PO No Longer Aaron [facility] oral tablet Route: PO, Drug Active 2012 Medical form: TAB, Q4H, Center Dosing Weight 101.364, kg, PRN as needed for pain, Start date: 11/29/12 3:46:00, Duration: 30 day, Stop date: 12/29/12 3:45:00 insulin aspart 3 unit, 0.03 mL, SUB-Q No Longer Nicho [facility] Route: SUB-Q, Active 2012 Medical Drug form: SOLN, [place] TID-Before Meals, Dosing Weight 101.364, kg, PRN Blood Glucose Results, Start date: 11/29/12 3:26:00, Duration: 30 day, Stop date: 12/29/12 3:25:00 Dextrose 50% 12.5 gm, 25 mL, IVP No Longer Aaron [facility] Syringe Route: IVP, Drug Active 2012 Medical Form: INJ, Center Dosing Weight 101.364, kg, PRN, PRN Blood Glucose Results, Start date: 11/29/12 3:26:00, Duration: 30 day, Stop date: 12/29/12 3:25:00 glucagon 1 mg, Route: IM, IM No Longer Hendrix [facility] Drug form: Active 2012 Medical PDR/INJ, PRN, Center Dosing Weight 101.364, kg, PRN Blood Glucose Results, Start date: 11/29/12 3:26:00, Duration: 30 day, Stop date: 12/29/12 3:25:00 acetaminophen 650 mg, 20.3 mL, PO No Longer Hendrix [facility] Route: PO, Drug Active 2012 Medical form: LIQ, Q4H, Center Dosing Weight 101.364, kg, PRN Pain 1-3/Temp > 100.4 F, Start date: 11/29/12 3:25:00, Duration: 30 day, Stop date: 12/29/12 3:24:00 docusate 100 mg, 1 cap, PO No Longer Hendrix [facility] Route: PO, Drug Active 2012 Medical form: CAP, BID, Center Dosing Weight 101.364, kg, PRN Constipation, Start date: 11/29/12 3:25:00, Duration: 30 day, Stop date: 12/29/12 3:24:00 D5W 1/2NS 1,000 1,000 mL, Rate: IV No Longer [place] [facility] mL 75 ml/hr, Infuse Active 2012 Medical over: 13.3 hr, Center Route: IV, kg, Total Volume: 1,000, Start date: 11/29/12 3:21:00, Duration: 30 day, Stop date: 12/29/12 3:20:00 NS 0.45% IV 1,000 mL, Rate: IV No Longer Aaron [facility] 1000 mL 125 ml/hr, Active 2012 Medical Infuse over: 8 Center hr, Route: IV, Dosing Weight 101.364 kg, Total Volume: 1,000, Start date: 11/29/12 3:18:00, Duration: 30 day, Stop date: 12/29/12 3:17:00 Reglan 10 mg, 2 mL, IVP No Longer [place] [facility] Route: IVP, Drug Active 2012 Medical form: INJ, ONCE, Center Dosing Weight 101.364, kg, Priority: STAT, Start date: 11/29/12 2:31:00, Stop date: 11/29/12 2:31:00 Zofran 8 mg, Route: IVP No Longer [place] [facility] IVP, Drug form: Active 2012 Medical INJ, ONCE, Center Dosing Weight 101.364, kg, Priority: STAT, Start date: 11/29/12 1:52:00, Stop date: 11/29/12 1:52:00 Lortab 500 5 ml, PO, Q6H, PO No Longer Eng Fei mg-7.5 mg/15 mL PRN, 120 mL, for Active 2012 Medical oral elixir pain, Center Substitution Allowed, Maintenance, ELIX Phenergan 25 mg 1 supp, [place], Q6H, [place] Active Eng Fei rectal PRN, 9 supp, 2013 Medical suppository Nausea & Center Vomiting, Substitution Allowed Phenergan 12.5 mg, 0.5 mL, IVPB No Longer Porter Fei Route: IVPB, Active 2012 Medical Drug form: INJ, Center ONCE, Dosing Weight 101.364, kg, Priority: STAT, Start date: 11/29/12 0:56:00, Stop date: 11/29/12 0:56:00 Zofran 4 mg, 2 mL, IVP No Longer [facility] Fei Route: IVP, Drug 2012 Medical [...] 5 ml, Route: IVP No Longer Hendrix [facility] 0.9% IVP, Drug Form: Active 2012 Medical INJ, Dosing Center Weight 101.364, kg, PRN, PRN Line Flush, Start date: 11/28/12 19:29:00, Duration: 30 day, Stop date: 12/28/12 19:28:00 calcium 2,000 mg, 20 mL, IVPB No Longer Markus [facility] gluconate + Route: IVPB, Active 2012 Medical Sodium Chloride ONCE, Dosing Center 0.9% IV 80 mL Weight 103.21, kg, Start date: 11/17/12 11:02:00, Stop date: 11/17/12 11:02:00 magnesium 2 gm, 50 mL, IVPB No Longer Markus [facility] sulfate Route: IVPB, Active 2012 Medical Drug form: INJ, Center Q2H, Dosing Weight 103.21, kg, Total dose=4 gm, Start date: 11/17/12 10:00:00, Duration: 2 doses or times, Stop date: 11/17/12 12:00:00 aspirin 81 mg, 1 tab, PO No Longer Markus [facility] Route: PO, Drug Active 2012 Medical form: ECTAB, Center Daily, Dosing Weight 100, kg, Start date: 11/17/12 9:00:00, Duration: 30 day, Stop date: 12/16/12 9:00:00 simvastatin 40 mg, 1 tab, PO No Longer Markus [facility] Route: PO, Drug Active 2012 Medical form: TAB, Center Daily, Dosing Weight 100, kg, Start date: 11/17/12 9:00:00, Duration: 30 day, Stop date: 12/16/12 9:00:00 prasugrel 10 mg, 1 tab, PO No Longer Markus [facility] Route: PO, Drug Active 2012 Medical form: TAB, Center Daily, Dosing Weight 100, kg, Start date: 11/17/12 9:00:00, Duration: 30 day, Stop date: 12/16/12 9:00:00 NIFEdipine 90 mg, 1 tab, PO No Longer Markus [facility] Route: PO, Drug Active 2012 Medical form: ERTAB, Center Daily, Dosing Weight 100, kg, Start date: 11/17/12 9:00:00, Duration: 30 day, Stop date: 12/16/12 9:00:00 Toprol-XL 100 100 mg, 1 tab, PO No Longer Markus [facility] mg oral tablet, Route: PO, Drug Active 2012 Medical extended form: ERTAB, Center release Daily, Start date: 11/17/12 9:00:00, Duration: 30 day, Stop date: 12/16/12 9:00:00 magnesium oxide 400 mg, 1 tab, PO No Longer Markus [facility] Route: PO, Drug Active 2012 Medical form: TAB, Center Daily, Dosing Weight 100, kg, Start date: 11/17/12 9:00:00, Duration: 30 day, Stop date: 12/16/12 9:00:00 insulin detemir 15 unit, 0.15 SUB-Q No Longer Markus [facility] mL, Route: Active 2012 Medical SUB-Q, Drug Center form: INJ, Daily, Dosing Weight 100, kg, Start date: 11/17/12 9:00:00, Duration: 30 day, Stop date: 12/16/12 9:00:00 Zofran 8 mg, 4 mL, IV No Longer Markus [facility] Route: IV, Drug Active 2012 Medical form: INJ, Q4H, Center Dosing Weight 103.21, kg, PRN as needed for nausea/vomiting, Start date: 11/17/12 8:56:00, Duration: 30 day, Stop date: 12/17/12 8:55:00 Reglan 10 mg 10 mg, 1 tab, PO No Longer Markus [facility] oral tablet Route: PO, Drug Active 2012 Medical form: TAB, Center TID-Before Meals, Dosing Weight 100, kg, Start date: 11/17/12 7:30:00, Duration: 30 day, Stop date: 12/16/12 16:30:00 insulin aspart 4 unit, 0.04 mL, SUB-Q No Longer Markus [facility] Route: SUB-Q, Active 2012 Medical Drug form: SOLN, Center TID-Before Meals, Dosing Weight 100, kg, Start date: 11/17/12 7:30:00, Duration: 30 day, Stop date: 12/16/12 16:30:00 Cymbalta 120 mg, 2 cap, PO No Longer Markus [facility] Route: PO, Drug Active 2012 Medical form: DRC, Center Bedtime, Dosing Weight 100, kg, Start date: 11/16/12 21:00:00, Duration: 30 day, Stop date: 12/15/12 21:00:00 lisinopril 20 mg, 1 tab, PO No Longer Markus [facility] Route: PO, Drug Active 2012 Medical form: TAB, Q12H, Center Dosing Weight 100, kg, Start date: 11/16/12 21:00:00, Duration: 30 day, Stop date: 12/16/12 9:00:00 insulin detemir 12 unit, 0.12 SUB-Q No Longer Markus [facility] mL, Route: Active 2012 Medical SUB-Q, Drug Center form: INJ, Bedtime, Dosing Weight 100, kg, Start date: 11/16/12 21:00:00, Duration: 30 day, Stop date: 12/15/12 21:00:00 clonazepam 0.5 mg, 1 tab, PO No Longer Markus [facility] Route: PO, Drug Active 2012 Medical form: TAB, TID, Center Dosing Weight 100, kg, Start date: 11/16/12 20:30:00, Duration: 30 day, Stop date: 12/16/12 17:00:00 Neutra-Phos 1 pkt, Route: PO No Longer [place] [facility] PO, Drug Form: Active 2012 Medical PDR/REC, Dosing Center Weight 100, kg, TID-Before Meals, Start date: 11/16/12 20:30:00, Duration: 30 day, Stop date: 12/16/12 16:30:00 enoxaparin 40 mg, 0.4 mL, SUB-Q No Longer [place] [facility] Route: SUB-Q, Active 2012 Medical Drug form: INJ, Center [id number], Dosing Weight 100, kg, Start date: 11/16/12 19:00:00, Duration: 30 day, Stop date: 12/15/12 19:00:00 Sodium Chloride 1,000 mL, Rate: IV No Longer Markus [place] 0.9% IV 1,000 125 ml/hr, Active 2012 Medical mL Infuse over: 8 Center hr, Route: IV, kg, Total Volume: 1,000, Start date: 11/16/12 18:10:00, Duration: 30 day, Stop date: 12/16/12 18:09:00 insulin aspart 10 unit, 0.1 mL, SUB-Q No Longer Markus [facility] Route: SUB-Q, Active 2012 Medical Drug form: SOLN, Center TID-Before Meals, Dosing Weight 100, kg, PRN Blood Glucose Results, Start date: 11/16/12 18:10:00, Duration: 30 day, Stop date: 12/16/12 18:09:00 Dextrose 50% 12.5 gm, 25 mL, IVP No Longer Markus [facility] Syringe Route: IVP, Drug Active 2012 Medical Form: INJ, Center Dosing Weight 100, kg, PRN, PRN Blood Glucose Results, Start date: 11/16/12 18:10:00, Duration: 30 day, Stop date: 12/16/12 18:09:00 glucagon 1 mg, Route: IM, IM No Longer Markus [facility] Drug form: Active 2012 Medical PDR/INJ, PRN, Center Dosing Weight 100, kg, PRN Blood Glucose Results, Start date: 11/16/12 18:10:00, Duration: 30 day, Stop date: 12/16/12 18:09:00 [place] 5/325 1 tab, Route: PO No Longer Markus [facility] oral tablet PO, Drug Form: Active 2012 Medical TAB, Dosing Center Weight 100, kg, Q6H, PRN as needed for pain, Start date: 11/16/12 18:07:00, Duration: 30 day, Stop date: 12/16/12 18:06:00 tramadol 50 mg 50 mg, 1 tab, PO No Longer Markus [facility] oral tablet Route: PO, Drug Active 2012 Medical form: TAB, Q4H, Center Dosing Weight 100, kg, PRN as needed for pain, Start date: 11/16/12 18:01:00, Duration: 30 day, Stop date: 12/16/12 18:00:00 promethazine 25 mg, 1 tab, PO No Longer [place] [facility] Route: PO, Drug Active 2012 Medical form: TAB, Q4H, Center Dosing Weight 100, kg, PRN as needed for nausea/vomiting, Start date: 11/16/12 18:01:00, Duration: 30 day, Stop date: 12/16/12 18:00:00 ondansetron 8 mg, 2 tab, PO No Longer [place] [facility] Route: PO, Drug Active 2012 Medical form: TABDIS, Center Q8H, Dosing Weight 100, kg, PRN Nausea & Vomiting, Start date: 11/16/12 18:01:00, Stop date: 12/16/12 18:00:00, nauea ondansetron 8 8 mg, 1 tab, PO, PO Active [place] [facility] mg oral tablet, Q8H, PRN, 2012 Medical disintegrating Dissolve under Center tongue, 10 tab, as needed for nausea/vomiting, Substitution AllowedDissolve under tongue Effient 10 mg 10 mg, 1 tab, PO Active Fei oral tablet PO, Daily, 30 2012 Medical tab, Center Substitution Allowed, TAB tramadol 50 mg 50 mg, 1 tab, PO Active [place] [facility] oral tablet PO, Q4H, PRN, 60 2012 Medical tab, for pain, Center Substitution Allowed, TAB clonazepam 0.5 0.5 mg, 1 tab, PO Active [place] [facility] mg oral tablet PO, TID, 2012 [...] Duration: 1 doses or times, Dose=2.2ml/kg, Max dxsa=[id number] -- "To be infused by Radiology Staff ONLY"Dose=2.2ml/ kg, Max [id number] -- "To be infused by Radiology Staff [...] 1 mg, 0.5 mL, IVP No Longer [place] Fei Route: IVP, Drug Active 2012 Medical [...] mg, 4 tab, CHEW No Longer Rehrer [facility] Route: CHEW, Active 2012 Medical Drug form: Center CHEWTAB, ONCE, Dosing Weight 100, kg, Priority: STAT, Start date: 11/16/12 13:29:00, Stop date: 11/16/12 13:29:00 Zofran 8 mg, 4 mL, IVP No Longer Rehrer [facility] Route: IVP, Drug Active 2012 Medical form: INJ, ONCE, Center Dosing Weight 100, kg, Priority: STAT, Start date: 11/16/12 13:17:00, Stop date: 11/16/12 13:17:00 Saline Flush 5 mL, Route: IVP No Longer Rehrer [facility] 0.9% IVP, Drug Form: Active 2012 Medical INJ, Dosing Center Weight 100, kg, Q8H, PRN Line Flush, Start date: 11/16/12 13:16:00, Duration: 30 day, Stop date: 12/16/12 13:15:00, Administer at least once every 8 hoursAdminister at least once every 8 hours Reglan 10 mg 10 mg, 1 tab, PO Active [facility] oral tablet PO, TID-Before 2012 Medical Meals, PRN, 42 Center tab, nausea, Substitution Allowed, TAB [place] 5/325 1 tab, PO, Q6H, PO Active [facility] oral tablet PRN, 10 tab, 2013 Medical Pain, Center Substitution Allowed, Maintenance, TAB ondansetron 8 8 mg, 1 tab, PO, PO Active [facility] mg oral tablet, Q8H, PRN, 60 2012 Medical disintegrating tab, 1, 1, Center Nausea, Substitution Allowed, TABDIS insulin detemir 12 unit, 0.12 SUB-Q Active [facility] 100 units/mL mL, SUB-Q, 2012 Medical subcutaneous Bedtime, 4 mL, Center solution Substitution Allowed, INJ insulin detemir 15 unit, 0.15 SUB-Q Active [facility] 100 units/mL mL, SUB-Q, 2012 Medical subcutaneous Daily, 5 mL, Center solution Substitution Allowed, INJ Zofran 4 mg, 1 tab, PO No Longer [facility] Route: PO, Drug Active 2012 Medical form: TAB, Q8H, Center Dosing Weight 100, kg, Start date: 11/14/12 16:00:00, Duration: 30 day, Stop date: 12/14/12 8:00:00 Reglan 10 mg 10 mg, 1 tab, PO No Longer [facility] oral tablet Route: PO, Drug Active 2012 Medical form: TAB, Center TID-Before Meals, Dosing Weight 100, kg, Start date: 11/14/12 11:30:00, Duration: 30 day, Stop date: 12/14/12 7:30:00 calcium 2,000 mg, 20 mL, IVPB No Longer Rose Fei gluconate + Route: IVPB, Active 2012 Medical Sodium Chloride Drug form: INJ, [place] 0.9% IV 100 mL Q2H, Dosing Weight 100, kg, Total [id number] mg, Start date: 11/14/12 8:00:00, Duration: 2 doses or times, Stop date: 11/14/12 10:00:00 magnesium 2 gm, 50 mL, IVPB No Longer [facility] sulfate Route: IVPB, Active 2012 Medical Drug [...] 20 mEq, 100 mL, IVPB No Longer [facility] Fei chloride Route: IVPB, Active 2012 Medical Drug form: INJ, Center ONCE, Dosing Weight 100, kg, Total dose=20mEq, Start date: 11/13/12 7:58:00, Duration: 1 doses or times, Stop date: 11/13/12 7:58:00, For K=3.5 - 3.9 mEq/LFor K=3.5 - 3.9 mEq/L calcium 1,000 mg, 10 mL, IVPB No Longer [facility] gluconate + Route: IVPB, Active 2012 Medical Sodium Chloride ONCE, Dosing Center 0.9% IV 50 mL Weight 100, kg, Start date: 11/13/12 7:56:00, Stop date: 11/13/12 7:56:00 Reglan 10 mg, 2 mL, IVP No Longer [facility] Route: IVP, Drug Active 2012 Medical form: INJ, Center Before Meals & Bedtime, Dosing Weight 100, kg, Start date: 11/12/12 16:30:00, Duration: 30 day, Stop date: 12/12/12 11:30:00 [place] 5/325 1 tab, Route: PO No Longer King-Card [facility] oral tablet PO, Drug Form: Active jaida 2012 Medical TAB, Dosing Center Weight 100, kg, Q6H, PRN Pain, Start date: 11/12/12 16:07:00, Duration: 30 day, Stop date: 12/12/12 16:06:00 Reglan 10 mg, Route: IVP No Longer Aristides [facility] IVP, Q6H, Dosing Active 2012 Medical Weight 100, kg, Center PRN Nausea & Vomiting, Start date: 11/12/12 12:35:00, Duration: 30 day, Stop date: 12/12/12 12:34:00 insulin detemir 15 unit, Route: SUB-Q No Longer Ada [facility] SUB-Q, ONCE, Active 2012 Medical Dosing Weight Center 100, kg, Priority: NOW, Start date: 11/12/12 10:38:00, Stop date: 11/12/12 10:38:00 heparin 7,500 unit, 1.5 SUB-Q No Longer Cardoza [facility] mL, Route: Active 2012 Medical SUB-Q, Drug [...] Chloride 1,000 mL, Rate: IV No Longer [facility] [place] 0.9% (Bolus) IV 1,000 ml/hr, Active 2012 Medical 1,000 mL Infuse over: 1 Center hr, Route: IV, kg, Total Volume: 1,000, Priority: STAT, Start date: 11/10/12 20:17:00, Duration: 1 doses or times, Stop date: 11/10/12 21:16:00, Bolus DoseBolus Dose insulin detemir 10 unit, 0.1 mL, SUB-Q No Longer Domingojarski [facility] Route: SUB-Q, Active 2012 Medical Drug form: INJ, Center ONCE, Dosing Weight 100, kg, Priority: NOW, Start date: 11/10/12 11:40:00, Stop date: 11/10/12 11:40:00 Zofran ODT 4 mg, 1 tab, PO No Longer Juanjo [place] Route: PO, Drug Active 2012 Medical form: TABDIS, Center Q8H, Dosing Weight 100, kg, PRN Nausea, Start date: 11/10/12 11:04:00, Duration: 30 day, Stop date: 12/10/12 11:03:00 Phenergan 12.5 mg, 0.5 mL, IM No Longer Ahmad [place] Route: IM, Drug Active 2012 Medical form: INJ, PRN, Center Dosing Weight 100, kg, PRN as needed for nausea/vomiting, Start date: 11/10/12 10:00:00, Duration: 30 day, Stop date: 12/10/12 10:59:00 insulin detemir 16 unit, 0.16 SUB-Q No Longer [place] mL, Route: Active 2012 Medical SUB-Q, Drug Center form: INJ, ONCE, Dosing Weight 100, kg, Start date: 11/10/12 0:20:00, Stop date: 11/10/12 0:20:00 NovoLog 6 unit, 0.06 mL, SUB-Q No Longer Olejarski [facility] Route: SUB-Q, Active 2012 Medical Drug form: SOLN, Center TID-Before Meals, Dosing Weight 100, kg, Start date: 11/09/12 16:30:00, Duration: 30 day, Stop date: 12/09/12 11:30:00 insulin aspart 7 unit, 0.07 mL, SUB-Q No Longer Loida [facility] Route: SUB-Q, Active 2012 Medical Drug form: SOLN, Center ONCE, Dosing Weight 100, kg, Start date: 11/09/12 13:24:00, Stop date: 11/09/12 13:24:00 insulin detemir 20 unit, 0.2 mL, SUB-Q No Longer Juanjo [facility] Route: SUB-Q, Active 2012 Medical Drug form: INJ, Center Daily, Dosing Weight 100, kg, Start date: 11/09/12 9:00:00, Duration: 30 day, Stop date: 12/08/12 9:00:00 morphine 1 mg, 0.5 mL, IV No Longer Chavez [facility] Sulfate Route: IV, Drug Active 2012 Medical form: INJ, ONCE, Center Dosing Weight 100, kg, Start date: 11/09/12 5:28:00, Stop date: 11/09/12 5:28:00 insulin detemir 12 unit, 0.12 SUB-Q No Longer Olejarski [facility] mL, Route: Active 2012 Medical SUB-Q, Drug Center form: INJ, Bedtime, Dosing Weight 100, kg, Start date: 11/08/12 21:00:00, Stop date: 12/07/12 21:00:00 morphine 2 mg, 1 mL, IVP No Longer Quintanilla [facility] Sulfate Route: IVP, Drug Active 2012 Medical form: INJ, ONCE, Center Dosing Weight 100, kg, Start date: 11/08/12 18:34:00, Stop date: 11/08/12 18:34:00 ampicillin + 1,500 mg, Route: IVPB No Longer Aristides [facility] Sodium Chloride IVPB, Drug form: Active 2012 Medical 0.9% IV 100 mL PDR/INJ, ABXQ6H, Center Dosing Weight 100, kg, Start date: 11/08/12 18:00:00, Duration: 30 day, Stop date: 12/08/12 12:00:00 ciprofloxacin 500 mg, 1 tab, PO No Longer Maggin [facility] Route: PO, Drug Active 2012 Medical form: TAB, Center [id number], Dosing Weight 100, kg, Start date: 11/08/12 17:00:00, Duration: 30 day, Stop date: 12/08/12 5:00:00 Rocephin 1 gm, Route: IVPB No Longer Janet Fei IVPB, Drug form: Active 2012 Medical PDR/INJ, ONCE, Center Dosing Weight 100, kg, Start date: 11/08/12 13:11:00, Stop date: 11/08/12 13:11:00 insulin aspart 2 unit, 0.02 mL, SUB-Q No Longer Ada [facility] Route: SUB-Q, Active 2012 Medical Drug form: SOLN, Center TID-Before Meals, Dosing Weight 100, kg, PRN Blood Glucose Results, Start date: 11/08/12 10:45:00, Duration: 30 day, Stop date: 12/08/12 10:44:00 insulin aspart 2 unit, 0.02 mL, SUB-Q No Longer Ada [facility] Route: SUB-Q, Active 2012 Medical Drug form: SOLN, Center TID-Before Meals, Dosing Weight 100, kg, PRN Blood Glucose Results, Start date: 11/07/12 18:47:00, Duration: 30 day, Stop date: 12/07/12 18:46:00 magnesium 2 gm, 50 mL, IVPB No Longer Maggin [facility] sulfate Route: IVPB, Active 2012 Medical Drug form: INJ, Center Q2H, Dosing Weight 100, kg, Start date: 11/07/12 8:00:00, Duration: 2 doses or times, Stop date: 11/07/12 10:00:00, For Mg=1.5 - 1.7 mg/dLFor Mg=1.5 - 1.7 mg/dL magnesium 2 gm, Route: IVPB No Longer Loida [facility] sulfate IVPB, Drug form: Active 2012 Medical SOLN, ONCE, Center Dosing Weight 100, kg, Start date: 11/07/12 7:42:00, Duration: 1 doses or times, Stop date: 11/07/12 7:42:00, For Mg=1.8 - 2 mg/dLFor Mg=1.8 - 2 mg/dL Protonix 40 mg, Route: IVP No Longer Quintanilla [facility] IVP, Drug form: Active 2012 Medical INJ, Before Center Breakfast, Dosing Weight 100, kg, Start date: 11/07/12 7:30:00, Duration: 30 day, Stop date: 12/06/12 7:30:00 insulin aspart 10 unit, 0.1 mL, SUB-Q No Longer Ahmad [facility] Route: SUB-Q, 2012 Medical Drug form: SOLN, Center ONCE, Dosing Weight 100, kg, Start date: 11/06/12 13:32:00, Stop date: 11/06/12 13:32:00 adenosine 84 mg, Route: IVP No Longer Ahmad [facility] IVP, ONCE, Active 2012 Medical Dosing Weight Center 100, kg, Priority: Routine, Start date: 11/06/12 10:20:00, Stop date: 11/06/12 10:20:00 Insulin regular 10 unit, 0.1 mL, SUB-Q No Longer Maggin [facility] Route: SUB-Q, 2012 Medical Drug form: SOLN, Center ONCE, Dosing Weight 100, kg, Start date: 11/06/12 9:47:00, Stop date: 11/06/12 9:47:00 insulin aspart 10 unit, 0.1 mL, SUB-Q No Longer Maggin [facility] Route: SUB-Q, 2012 Medical Drug form: [facility], Center ONCE, Dosing Weight 100, kg, Start date: 11/06/12 9:43:00, Stop date: 11/06/12 9:43:00 Lactated 1,000 mL, Rate: IV No Longer Mag[place] Ringers (Bolus) 1,000 ml/hr, Active 2012 Medical IV 1,000 mL Infuse over: 1 Center hr, Route: IV, kg, Total Volume: 1,000, Bolus Dose, Priority: STAT, Start date: 11/06/12 9:14:00, Duration: 1 doses or times, Stop date: 11/06/12 10:13:00 Insulin regular 9 unit, 0.09 mL, SUB-Q No Longer Ada [facility] Route: SUB-Q, Active 2012 Medical Drug form: [...] Drug Active 2012 Medical coated form: ECTAB, [place] Daily, Dosing Weight 100, kg, Start date: [...] unit, 0.04 mL, SUB-Q No Longer Olejarski Route: SUB-Q, Active 2012 Medical Drug form: SOLN, [place] TID-Before Meals, Dosing Weight 100, kg, Start date: 11/06/12 7:30:00, Duration: 30 day, Stop date: 12/05/12 16:30:00 metoclopramide 10 mg, 2 mL, IVP No Longer Aristides [facility] Route: IVP, Drug Active 2012 Medical form: INJ, Q6H, Center Dosing Weight 100, kg, PRN Nausea & Vomiting, Start date: 11/06/12 1:49:00, Duration: 30 day, Stop date: 12/06/12 1:48:00 Benadryl 25 mg, 0.5 mL, IV No Longer [place] [facility] Route: IV, Drug Active 2012 Medical form: INJ, Q4H, Center Dosing Weight 100, kg, PRN as needed for nausea/vomiting, Start date: 11/06/12 1:44:00, Duration: 30 day, Stop date: 12/06/12 1:43:00 Phenergan 12.5 mg, 0.5 mL, IVPB No Longer [place] [facility] Route: IVPB, Active 2012 Medical Drug form: INJ, Center Q6H, Dosing Weight 100, kg, PRN Nausea & Vomiting, Start date: 11/06/12 1:43:00, Stop date: 12/06/12 1:42:00 Benadryl 25 mg, 1 cap, PO No Longer [place] [facility] Route: PO, Drug Active 2012 Medical form: CAP, TID, Center Dosing Weight 100, kg, PRN Nausea, Start date: 11/06/12 0:31:00, Duration: 30 day, Stop date: 12/06/12 0:30:00 labetalol 20 mg, 4 mL, IVP No Longer Mag[place] [facility] Route: IVP, Drug Active 2012 Medical form: INJ, ONCE, Center Dosing Weight 100, kg, Start date: 11/06/12 0:25:00, Stop date: 11/06/12 0:25:00 simvastatin 40 mg, 1 tab, PO No Longer Mag[place] [facility] Route: PO, Drug Active 2012 Medical form: TAB, Center Bedtime, Dosing Weight 100, kg, Start date: 11/05/12 23:00:00, Duration: 30 day, Stop date: 12/05/12 21:00:00 lisinopril 20 mg, 1 tab, PO No Longer Mag[place] [facility] Route: PO, Drug Active 2012 Medical form: TAB, Q12H, Center Dosing Weight 100, kg, Start date: 11/05/12 23:00:00, Duration: 30 day, Stop date: 12/05/12 21:00:00 insulin detemir 20 unit, 0.2 mL, SUB-Q No Longer Olejarski [facility] Route: SUB-Q, Active 2012 Medical Drug form: INJ, Center Q12H, Dosing Weight 100, kg, Start date: 11/05/12 23:00:00, Stop date: 12/05/12 21:00:00 magnesium oxide 400 mg, 1 tab, PO Active [place] 400 mg oral PO, Daily, 2012 Medical tablet tab, Center Substitution Allowed, TAB metoprolol 100 100 mg, 1 tab, PO Active [facility] mg oral tablet, PO, Daily, 2012 Medical extended tab, Center release Substitution Allowed NIFEdipine 90 90 mg, 1 tab, PO Active [facility] mg oral tablet, PO, Daily, 30 2012 Medical extended tab, Center release Substitution Allowed, ERTAB prasugrel 10 mg 10 mg, 1 tab, PO Active [facility] oral tablet PO, Daily, 2012 Medical tab, Center Substitution Allowed, TAB Cymbalta 60 mg, Daily, Active [facility] Substitution 2012 Medical Allowed Center tramadol 50 mg 50 mg, 1 tab, PO No Longer [place] [facility] oral tablet Route: PO, Drug Active 2012 Medical form: TAB, Q4H, Center Dosing Weight 100, kg, PRN For Pain, Start date: 11/05/12 22:39:00, Duration: 30 day, Stop date: 12/05/12 22:38:00 promethazine 25 mg, 1 tab, PO No Longer [place] [facility] Route: PO, Drug Active 2012 Medical form: TAB, Q6H, Center Dosing Weight 100, kg, PRN as needed for nausea/vomiting, Start date: 11/05/12 22:39:00, Duration: 30 day, Stop date: 12/05/12 22:38:00 Phenergan 25 mg, 1 tab, PO No Longer [place] Route: PO, Drug Active 2012 Medical form: [...] 5 ml, Route: IVP No Longer [place] 0.9% IVP, Drug Form: 2012 Medical INJ, Dosing Center Weight 104.545, kg, PRN, PRN Line Flush, Start date: 11/05/12 22:14:00, Duration: 30 day, Stop date: 12/05/12 23:13:00 Sodium Chloride 500 mL, Rate: IV No Longer [place] 0.9% (Bolus) IV 2,000 ml/hr, 2012 Medical 500 mL Infuse over: 15 Center minutes, Route: IV, kg, Total Volume: 500, Priority: STAT, Start date: 11/05/12 22:14:00, Duration: 1 doses or times, Stop date: 11/05/12 22:28:00 nitroglycerin 0.4 mg, 1 tab, SL No Longer Mag[place] SL Tab Route: SL, Drug 2012 Medical form: TAB, Center Q5Min, Dosing Weight 104.545, kg, PRN Chest Pain, Start date: 11/05/12 22:14:00, Duration: 3 doses or times, Stop date: Limited # of times Phenergan 12.5 mg, Route: IVPB No Longer Dilan [place] IVPB, ONCE, Active 2012 Medical Dosing Weight Center 104.545, kg, Priority: STAT, Start date: 11/05/12 22:05:00, Stop date: 11/05/12 22:05:00 Phenergan 12.5 mg, 0.5 mL, IVPB No Longer Dilan [facility] Route: IVPB, Active 2012 Medical Drug form: INJ, Center ONCE, Dosing Weight 104.545, kg, Priority: STAT, Start date: 11/05/12 21:08:00, Stop date: 11/05/12 21:08:00 carvedilol 12.5 mg, 1 tab, PO No Longer Dilan [facility] Route: PO, Drug Active 2012 Medical form: TAB, ONCE, Center Dosing Weight 104.545, kg, Start date: 11/05/12 19:20:00, Stop date: 11/05/12 19:20:00 Effient 10 mg, 1 tab, PO No Longer Dilan [facility] Route: PO, Drug Active 2012 Medical form: TAB, ONCE, Center Dosing Weight 104.545, kg, Start date: 11/05/12 19:16:00, Stop date: 11/05/12 19:16:00 ondansetron 4 mg, 2 mL, IVP No Longer Dilan [facility] Route: IVP, Drug Active 2012 Medical form: INJ, ONCE, Center Dosing Weight 104.545, kg, Priority: STAT, Start date: 11/05/12 19:14:00, Stop date: 11/05/12 19:14:00 aspirin 324 mg, 4 tab, PO No Longer Dilan [facility] Route: PO, Drug Active 2012 Medical form: CHEWTAB, Center ONCE, Dosing Weight 104.545, kg, Priority: STAT, Start date: 11/05/12 19:14:00, Stop date: 11/05/12 19:14:00 Saline Flush 5 mL, Route: IVP No Longer Dilan [facility] 0.9% IVP, Drug Form: Active 2012 Medical [...] detemir 16 unit, 0.16 SUB-Q No Longer [place] [facility] mL, Route: Active 2012 Medical SUB-Q, Drug Center form: INJ, Q12H, Dosing Weight 78.2, kg, Start date: 10/31/12 21:00:00, Duration: 30 day, Stop date: 11/30/12 9:00:00 insulin aspart 4 unit, 0.04 mL, SUB-Q Active [facility] 100 units/mL SUB-Q, 2012 Medical subcutaneous TID-Before Center solution Meals, 1 vial, 2, 2, Substitution Allowed, SOLN insulin detemir 16 unit, 0.16 SUB-Q Active [facility] 100 units/mL mL, SUB-Q, Q12H, 2012 Medical subcutaneous 1 vial, 2, 2, Center solution Substitution Allowed, INJ tramadol 50 mg 50 mg, 1 tab, PO Active [place] oral tablet PO, Q4H, PRN, 30 2012 Medical tab, as needed Center for pain, Substitution Allowed, TAB simvastatin 40 40 mg, 1 tab, PO Active [place] mg oral tablet PO, Bedtime, 30 2012 Medical tab, 1, 1, Center Substitution Allowed, Maintenance, TAB promethazine 25 25 mg, 1 tab, PO Active [place] mg oral tablet PO, Q6H, PRN, 60 2012 Medical tab, 1, 1, Center Nausea & Vomiting, Substitution Allowed, TAB prasugrel 10 mg 10 mg, 1 tab, PO Active [place] oral tablet PO, Daily, 30 2012 [...] oxide 400 mg, 1 tab, PO Active [place] 10/31/ [place] 400 mg oral PO, Daily, 30 2012 Medical tablet tab, 1, 1, Center Substitution Allowed, TAB lisinopril 20 20 mg, 1 tab, PO Active [place] mg oral tablet PO, Q12H, 60 2012 Medical tab, 1, 1, Center Substitution Allowed, TAB aspirin 81 mg 81 mg, 1 tab, PO Active [place] Fei tablet, enteric PO, Daily, 30 2012 Medical [...] 25 mg, 1 tab, PO No Longer Bin Fei Route: PO, Drug Active 2012 Medical form: TAB, Q6H, Center Dosing Weight 78.2, kg, PRN Nausea & Vomiting, Start date: 10/30/12 8:06:00, Duration: 30 day, Stop date: 11/29/12 8:05:00 magnesium 1 gm, 50 mL, IVPB No Longer Bin [...] 0.4 mL, IV No Longer Funez Kamel [facility] Route: IV, Drug Active 2012 Medical form: INJ, ONCE, Center Dosing Weight 78.2, kg, Start date: 10/30/12 5:42:00, Stop date: 10/30/12 5:42:00 tramadol 50 mg 50 mg, 1 tab, PO No Longer [place] [facility] oral tablet Route: PO, Drug 2012 Medical form: TAB, Q4H, Center Dosing Weight 78.2, kg, PRN as needed for pain, Start date: 10/29/12 9:45:00, Duration: 30 day, Stop date: 11/28/12 9:44:00 Toradol 15 15 mg, 0.5 mL, IV No Longer [place] [facility] mg/mL Route: IV, Drug Active 2012 Medical injectable form: INJ, ONCE, Center solution Dosing Weight 78.2, kg, Start date: 10/29/12 6:54:00, Stop date: 10/29/12 6:54:00 Toradol 15 15 mg, 0.5 mL, IV No Longer [place] [facility] mg/mL Route: IV, Drug Active 2012 Medical injectable form: INJ, ONCE, Center solution Dosing Weight 78.2, kg, Start date: 10/29/12 1:07:00, Stop date: 10/29/12 1:07:00 insulin detemir 20 unit, 0.2 mL, SUB-Q No Longer Amari [facility] Route: SUB-Q, Active 2012 Medical Drug form: INJ, Center QPM, Dosing Weight 78.2, kg, Start date: 10/28/12 21:00:00, Duration: 30 day, Stop date: 11/27/12 17:00:00 Lasix 20 mg, 2 mL, IV No Longer Dee Dee Jon Fie Route: IV, Drug Active 2012 Medical [...] labetalol 20 mg, Route: IVP No Longer [place] 02/22[facility] IVP, Drug form: Active 2012 Medical INJ, ONCE, Center Dosing Weight 78.2, kg, Start date: 10/27/12 19:28:00, Stop date: 10/27/12 19:28:00 labetalol 20 mg, 4 mL, IVP No Longer [place] [facility] Route: IVP, Drug Active 2012 Medical form: INJ, ONCE, Center Dosing Weight 78.2, kg, Start date: 10/27/12 17:28:00, Stop date: 10/27/12 17:28:00 Benadryl 25 mg, 1 cap, PO No Longer [place] [facility] Route: PO, Drug Active 2012 Medical form: CAP, ONCE, Center Dosing Weight 78.2, kg, Start date: 10/27/12 17:28:00, Stop date: 10/27/12 17:28:00 Reglan 10 mg 10 mg, Route: PO No Longer Juni[place] [facility] oral tablet PO, Drug form: Active 2012 Medical TAB, Before Center Meals & Bedtime, Dosing Weight 78.2, kg, Start date: 10/27/12 16:30:00, Duration: 30 day, Stop date: 11/26/12 11:30:00 Reglan 5 mg, 1 mL, IV No Longer [place] [facility] Route: IV, Drug Active 2012 Medical form: INJ, Q8H, Center Dosing Weight 78.2, kg, Start date: 10/27/12 16:00:00, Duration: 30 day, Stop date: 11/26/12 8:00:00 Reglan 5 mg, 1 mL, IV No Longer [place] [facility] Route: IV, Drug Active 2012 Medical form: INJ, Q8H, Center Dosing Weight 78.2, kg, PRN Nausea, Start date: 10/27/12 13:08:00, Duration: 30 day, Stop date: 11/26/12 13:07:00 lisinopril 20 mg, 1 tab, PO No Longer [place] [facility] Route: PO, Drug Active 2012 Medical form: TAB, Q12H, Center Dosing Weight 78.2, kg, Start date: 10/27/12 10:00:00, Duration: 30 day, Stop date: 11/26/12 9:00:00 ergocalciferol 50,000 IntlUnit, PO No Longer Man[place]az [place] 1 cap, Route: Active 2012 Medical PO, Drug form: [place] CAP, Daily, Dosing Weight 78.2, kg, Start date: 10/27/12 9:00:00, Duration: 4 day, Stop date: 10/30/12 9:00:00 magnesium oxide 400 mg, 1 tab, PO No Longer Gee [place] Route: PO, Drug Active 2012 Medical form: TAB, Center Daily, Dosing Weight 78.2, kg, Start date: 10/27/12 9:00:00, Duration: 30 day, Stop date: 11/25/12 9:00:00 Toprol-XL 100 100 mg, 1 tab, PO No Longer [place] mg oral tablet, Route: PO, Drug Active 2012 Medical extended form: ERTAB, [place] release Daily, Start date: 10/27/12 9:00:00, Duration: 30 day, Stop date: 11/25/12 9:00:00 insulin aspart 7 unit, Route: SUB-Q No Longer Manlapaz [facility] SUB-Q, Drug Active 2012 Medical form: WHITLloyd [place] TID-Before Meals, Dosing Weight 78.2, kg, Start date: 10/26/12 12:00:00, Duration: 30 day, Stop date: 11/25/12 11:30:00 Insulin regular 10 unit, 0.1 mL, SUB-Q No Longer Steward [place] Route: SUB-Q, Active 2012 Medical Drug form: WHITLloyd [place] ONCE, Dosing Weight 78.2, kg, Start date: 10/26/12 10:32:00, Stop date: 10/26/12 10:32:00 NIFEdipine 90 mg, 1 tab, PO No Longer Datlon [facility] extended Route: PO, Drug Active 2012 Medical release form: ERTAB, [place] Daily, Dosing Weight 78.2, kg, Start date: 10/26/12 9:00:00, Duration: 30 day, Stop date: 11/24/12 9:00:00 metoprolol 25 mg, 1 tab, PO No Longer [place] [facility] tartrate Route: PO, Drug Active 2012 Medical form: TAB, Q12H, Center Dosing Weight 78.2, kg, Start date: 10/26/12 9:00:00, Duration: 30 day, Stop date: 11/24/12 21:00:00 Reglan 10 mg, 1 tab, PO No Longer Ellsworth Fei Route: PO, Drug Active 2012 Medical [...] gm, 50 mL, IVPB No Longer Dalton [facility] sulfate Route: IVPB, Active 2012 Medical Drug form: INJ, Center Q2H, Dosing Weight 78.2, kg, Total dose=4 gm, Start date: 10/25/12 16:00:00, Duration: 2 doses or times, Stop date: 10/25/12 18:00:00 potassium 40 mEq, 2 tab, PO No Longer Dalton Fei chloride 20 mEq Route: PO, Drug Active 2012 Medical oral tablet, form: ERTAB, [place] extended ONCE, Dosing release Weight 78.2, kg, Start date: 10/25/12 14:50:00, Stop date: 10/25/12 14:50:00 Procardia XL 30 mg, 1 tab, PO No Longer Dalton Fei Route: PO, Drug Active 2012 Medical form: ERTAB, Center ONCE, Dosing Weight 78.2, kg, Start date: 10/25/12 14:49:00, Stop date: 10/25/12 14:49:00 1/2 NS 1,000 mL 1,000 mL, Rate: IV No Longer [place] Fei 100 ml/hr, Active 2012 Medical Infuse over: 10 Center hr, Route: IV, kg, Total Volume: 1,000, Start date: 10/25/12 13:52:00, Duration: 30 day, Stop date: 11/24/12 13:51:00 atenolol 100 mg, 1 tab, PO No Longer Ellsworth [facility] Route: PO, Drug Active 2012 Medical form: TAB, Center Daily, Dosing Weight 78.2, kg, Start date: 10/25/12 9:00:00, Duration: 30 day, Stop date: 11/23/12 9:00:00 Protonix 40 mg, Route: IVP No Longer Carpenter [facility] IVP, Drug form: Active 2012 Medical INJ, Daily, Center Dosing Weight 78.2, kg, Start date: 10/25/12 9:00:00, Duration: 30 day, Stop date: 11/23/12 9:00:00 NovoLog FlexPen 6 unit, 0.06 mL, SUB-Q No Longer Fitzpatrick [facility] Route: SUB-Q, Active 2012 Medical Drug form: SOLN, Center TID-Before Meals, Start date: 10/25/12 7:30:00, Duration: 30 day, Stop date: 11/23/12 16:30:00 insulin lispro 6 unit, Route: SUB-Q No Longer Funez [facility] SUB-Q, 2012 Medical TID-Before Center Meals, Dosing Weight 78.2, kg, Start date: 10/25/12 7:30:00, Duration: 30 day, Stop date: 11/23/12 16:30:00 Lactated 1,000 mL, Rate: IV No Longer [facility] Ringers IV 250 ml/hr, Active 2012 Medical 1,000 mL Infuse over: 4 Center hr, Route: IV, kg, Total Volume: 1,000, Start date: 10/25/12 5:50:00, Duration: 30 day, Stop date: 11/24/12 5:49:00 Lactated 1,000 mL, Rate: IV No Longer [facility] Ringers (Bolus) 100 ml/hr, Active 2012 Medical IV 1,000 mL Infuse over: 10 Center hr, Route: IV, kg, Total Volume: 1,000, Start date: 10/25/12 5:50:00, Duration: 1 doses or times, Stop date: 10/25/12 15:49:00 insulin aspart 9 unit, 0.09 mL, SUB-Q No Longer Manlapaz [facility] Route: SUB-Q, Active 2012 Medical Drug form: SOLN, Center TID-Before Meals, Dosing Weight 78.2, kg, PRN Blood Glucose Results, Start date: 10/25/12 3:53:00, Duration: 30 day, Stop date: 11/24/12 3:52:00 glucagon 1 mg, Route: IM, IM No Longer Funez [facility] Drug form: Active 2012 Medical PDR/INJ, PRN, Center Dosing Weight 78.2, kg, PRN Blood Glucose Results, Start date: 10/25/12 3:53:00, Duration: 30 day, Stop date: 11/24/12 4:52:00 Dextrose 50% 12.5 gm, 25 mL, IVP No Longer Funez [facility] 10/25[facility] Syringe Route: IVP, Drug Active 2012 Medical Form: INJ, Center Dosing Weight 78.2, kg, PRN, PRN Blood Glucose Results, Start date: 10/25/12 3:53:00, Duration: 30 day, Stop date: 11/24/12 4:52:00 Dextrose 50% 25 mL, Route: IVP No Longer Funez [facility] 10/25[facility] Syringe IVP, Dosing Active 2012 Medical Weight 78.2, kg, Center PRN, PRN Blood Glucose Results, Start date: 10/25/12 3:52:00, Duration: 30 day, Stop date: 11/24/12 4:51:00 glucagon 1 mg, Route: IM, IM No Longer Funez [facility] 10/25[facility] PRN, Dosing Active 2012 Medical Weight 78.2, kg, Center PRN Blood Glucose Results, Start date: 10/25/12 3:52:00, Duration: 30 day, Stop date: 11/24/12 4:51:00 Neutra-Phos 2 pkt, Route: PO No Longer Neeru [facility] PO, Drug Form: Active 2012 Medical PDR/REC, [...] 2 pkt, Route: PO No Longer Funez Kamnigel Fei PO, Drug Form: Active 2012 Medical PDR/REC, Dosing Center Weight 78.2, kg, ONCE, Start date: 10/24/12 20:35:00, Stop date: 10/24/12 20:35:00 potassium 20 mEq, 100 mL, IVPB No Longer Funez Jerseyel [facility] chloride Route: IVPB, Active 2012 Medical Drug [...] unit, SUB-Q, SUB-Q No Longer Fei Q12H, Active 2012 Medical Substitution Center Allowed [...] mg, 1 tab, PO No Longer [facility]z [facility] Route: PO, Drug Active 2012 Medical form: TAB, ONCE, Center Dosing Weight 78.2, kg, Start date: 10/24/12 15:03:00, Stop date: 10/24/12 15:03:00 NIFEdipine 60 mg, 1 tab, PO No Longer Dalton Fei extended Route: PO, Drug Active 2012 Medical [...] mL, Rate: IV No Longer [facility]i Ringers (Bolus) 100 ml/hr, Active 2012 [...] mL, Rate: IV No Longer Dee [facility]i Ringers 150 ml/hr, Active 2012 Medical Injection IV Infuse over: 6.7 Center 1,000 mL hr, Route: IV, kg, Total Volume: 1,000, Start date: 10/24/12 11:50:00, Duration: 30 day, Stop date: 11/23/12 11:49:00 lisinopril 20 mg, 1 tab, PO No Longer Funez Danay Fei Route: PO, Drug Active 2012 Medical [...] mg, 1 tab, PO No Longer [facility]unez [facility] Route: PO, Drug Active 2012 Medical form: TAB, Center Daily, Dosing Weight 78.2, kg, Priority: NOW, Start date: 10/24/12 10:53:00, Duration: 30 day, Stop date: 11/23/12 9:00:00 potassium 40 mEq, 2 tab, PO No Longer [facility] Fe[facility] chloride Route: PO, Drug Active 2012 [...] ea, PO No Longer Dee Dee Jon [place] tartrate Route: PO, Drug Active 2012 Medical [...] 24 hr aspirin 200 mg, 1 supp, [place] No Longer [place] Fei Route: [place], Drug Active 2012 Medical form: SUPP, Center [...] 126 mL, Route: IVP No Longer Pauline eFi 320mg/ml IVP, Drug Form: Active 2012 Medical SOLN, Dosing Center Weight 113.636, kg, ONCALL, STAT, Start date: 10/23/12 16:52:00, Duration: 1 doses or times, Dose=2.2ml/kg, Max [id number] -- "To be infused by Radiology Staff ONLY"Dose=2.2ml/ kg, Max [id number] -- "To be infused by Radiology Staff [...] Dee Dee Jon [place] mL 200 ml/hr, Active 2012 Medical Infuse over: 5 Center hr, Route: IV, kg, Total Volume: 1,000, Start date: 10/23/12 14:21:00, Stop date: 11/22/12 14:20:00 Omnipaque 130 mL, Route: IVP No Longer Carpenter Fei 350mg/ml IVP, Drug Form: Active 2012 Medical SOLN, Dosing Center Weight 113.636, kg, ONCALL, STAT, Start date: 10/23/12 10:42:00, Duration: 1 doses or times, Dose=2.2ml/kg, Max [id number] -- "To be infused by Radiology Staff ONLY"Dose=2.2ml/ kg, Max [id number] -- "To be infused by Radiology Staff ONLY" Insulin 100 mL, Rate: IV No Longer Ellsworth Fei (regular) 0.1units/kg/hour Active 2012 Medical Titrate [...] 1,000 mL, Rate: IV No Longer Isaac [facility] 0.9% IV 1,000 100 ml/hr, Active 2012 Medical mL + M.V.I.-12 Infuse over: Center 10 mL Daily + 10.1 hr, Route: folic acid IV 1 IV, kg, Total mg Daily + Volume: 1,011.2, thiamine IV 1 Start date: 10/23/12 8:41:00, Duration: 3 day, Stop date: 10/26/12 8:40:00 Insulin regular 100 mL, Rate: IVPB No Longer Isaac [facility] 100 unit + Start Insulin Active 2012 [...] gm, 50 mL, IVP No Longer Isaac [place] Syringe Route: IVP, Drug Active 2012 Medical Form: INJ, Center Dosing Weight 113.636, kg, PRN, PRN Blood Glucose Results, Start date: 10/23/12 8:17:00, Duration: 30 day, Stop date: 11/22/12 9:16:00 normal saline 1,000 mL, Rate: IV No Longer Isaac [place] 0.9% IV 1,000 150 ml/hr, Active 2012 Medical mL Infuse over: 6.7 Center hr, Route: IV, kg, Total Volume: 1,000, Start date: 10/23/12 5:07:00, Duration: 30 day, Stop date: 11/22/12 5:06:00 NS (Bolus) IV 1,000 mL, 0 IV No Longer Kristy [facility] ml/hr, Route: Active 2012 Medical IV, Drug Form: Center INJ, Dosing Weight 113.636, kg, ONCE, STAT, Start date: 10/23/12 5:06:00, Duration: 1 doses or times, Stop date: 10/23/12 5:06:00 hydrALAZINE 10 mg, 0.5 mL, IV No Longer Funez Kamel [facility] Route: IV, Drug Active 2012 Medical form: INJ, Q4H, Center Dosing Weight 113.636, kg, PRN Other -See Comment, Start date: 10/23/12 0:38:00, Duration: 30 day, Stop date: 11/22/12 0:37:00, hypertesnion acetaminophen 650 mg, 1 supp, [place] No Longer Kristy [place] Route: [place], Drug Active 2012 Medical form: SUPP, Q6H, Center Dosing Weight 113.636, kg, PRN Fever, Start date: 10/23/12 0:37:00, Duration: 30 day, Stop date: 11/22/12 0:36:00 Dilaudid 0.5 mg, 0.25 mL, IV No Longer Dalton [facility] Route: IV, Drug Active 2012 Medical form: INJ, Q2H, Center Dosing Weight 113.636, kg, PRN Pain, Start date: 10/23/12 0:37:00, Duration: 30 day, Stop date: 11/22/12 0:36:00 metoprolol 5 5 mg, 5 mL, IVP No Longer Funez [facility] mg/5 ml INJ Route: IVP, Drug Active 2012 Medical form: INJ, Q3H, Center Dosing Weight 113.636, kg, PRN Hypertension, Start date: 10/23/12 0:35:00, Duration: 30 day, Stop date: 11/22/12 0:34:00 Insulin regular 2 unit, 0.02 mL, SUB-Q No Longer Isaac [facility] Route: SUB-Q, Active 2012 Medical Drug form: SOLN, Center Sliding Scale, Dosing Weight 113.636, kg, PRN Blood Glucose Results, Start date: 10/23/12 0:26:00, Duration: 30 day, Stop date: 11/22/12 1:25:00 glucagon 1 mg, Route: IM, IM No Longer Isaac [place] Drug form: Active 2012 Medical PDR/INJ, PRN, Center Dosing Weight 113.636, kg, PRN Blood Glucose Results, Start date: 10/23/12 0:26:00, Duration: 30 day, Stop date: 11/22/12 1:25:00 Dextrose 50% 25 gm, 50 mL, IVP No Longer Isaac [place] Syringe Route: IVP, Drug Active 2012 Medical [...] heparin 5,000 unit, SUB-Q No Longer Brian [place] Route: SUB-Q, Active 2012 Medical Q8H, Dosing Center Weight 113.636, kg, Start date: 10/23/12 0:00:00, Duration: 30 day, Stop date: 11/21/12 16:00:00 carvedilol 25 Daily, No Longer [place] mg oral tablet Substitution Active 2012 Medical Allowed Center Diovan HCT 160 1 tab, PO, PO No Longer [place] mg-12.5 mg oral Daily, 30 tab, Active [...] Duration: 7 day, Stop date: 10/14/12 9:00:00 Brooker 325 mg-10 15 mL, Route: PO No Longer Sushila Fei mg / 15 mL oral PO, Drug Form: Active 2012 Medical solution SOLN, Dosing Center Weight 118.2, kg, Q4H, PRN For Pain, Start date: 10/07/12 14:22:00, Duration: 30 day, Stop date: 11/06/12 14:21:00 Diovan 160 mg, 1 tab, PO No Longer Sushila [facility] Route: PO, Drug Active 2012 Medical form: TAB, Center Daily, Dosing Weight 118.2, kg, Start date: 10/07/12 14:00:00, Duration: 30 day, Stop date: 11/06/12 9:00:00 Coreg 25 mg, 1 tab, PO No Longer Sushila [facility] Route: PO, Drug Active 2012 Medical form: TAB, Q12H, Center Dosing Weight 118.2, kg, Start date: 10/07/12 14:00:00, Duration: 30 day, Stop date: 11/06/12 9:00:00 potassium 20 mEq, 100 mL, IVPB No Longer Bagshahi [facility] chloride Route: IVPB, Active 2012 Medical Drug form: INJ, Center ONCE, Dosing Weight 118.2, kg, Total dose=20 mEq, Start date: 10/07/12 7:53:00, Duration: 1 doses or times, Stop date: 10/07/12 7:53:00, For K=3.5 - 3.9 mEq/LFor K=3.5 - 3.9 mEq/L Blistex 1 appl, Route: TOP No Longer [facility] Fei TOP, PRN, Drug Active 2012 Medical form: STIC PRN Center Other -See Comment, Start date: 10/06/12 22:48:00, Duration: 30 day, Stop date: 11/05/12 22:47:00 Blistex Lip Route: TOP, TOP No Longer [facility] Fei Dearing Dosing Weight Active 2012 Medical 118.2, kg, PRN, Center PRN, Start date: 10/06/12 22:46:00, Duration: 30 day, Stop date: 11/05/12 22:45:00, prn Dilaudid 0.2 mg, 0.1 mL, IV No Longer Sushila [facility] Route: IV, Drug Active 2012 Medical form: INJ, Q4H, Center Dosing Weight 118.2, kg, PRN Pain, Start date: 10/06/12 14:47:00, Duration: 30 day, Stop date: 11/05/12 14:46:00 Zofran 4 mg, 2 mL, IV No Longer Low [place] Route: IV, Drug Active 2012 Medical form: INJ, Q4H, Center Dosing Weight 118.2, kg, PRN Nausea, Start date: 10/06/12 14:47:00, Duration: 30 day, Stop date: 11/05/12 14:46:00 metoprolol 5 5 mg, 5 mL, IVP No Longer Sushila [place] mg/5 ml INJ Route: IVP, Drug Active 2012 Medical form: INJ, Q6H, Center Dosing Weight 118.2, kg, Start date: 10/06/12 12:00:00, Duration: 30 day, Stop date: 11/05/12 6:00:00 magnesium 2 gm, 50 mL, IVPB No Longer Low [place] sulfate Route: IVPB, Active 2012 Medical Drug form: INJ, Center Q2H, Dosing Weight 118.2, kg, Total dose=4 gm, Start date: 10/06/12 12:00:00, Duration: 2 doses or times, Stop date: 10/06/12 14:00:00 dexamethasone 4 mg, 1 mL, IV No Longer Sushila [place] Route: IV, Drug Active 2012 Medical form: INJ, ONCE, Center Start date: 10/06/12 9:00:00, Stop date: 10/06/12 9:00:00 acetaminophen-h 30 mL, Route: PO No Longer Sushila [place] ydrocodone 325 PO, Drug Form: 2012 Medical mg-10 mg/15 mL SOLN, Q4H, PRN Center oral solution Pain, Start date: 10/06/12 7:33:00, Duration: 30 day, Stop date: 11/05/12 7:32:00 morphine 2 mg, 1 mL, IVP No Longer Low [place] Sulfate Route: IVP, Drug Active 2012 Medical form: INJ, Q2H, Center Dosing Weight 118.2, kg, PRN Pain, Start date: 10/05/12 23:45:00, Duration: 30 day, Stop date: 11/04/12 23:44:00 Levemir FlexPen 20 unit, 0.2 mL, SUB-Q No Longer Sushila [facility] Route: SUB-Q, Active 2012 Medical Drug form: INJ, Center Q12H, Start date: 10/05/12 21:00:00, Duration: 30 day, Stop date: 11/04/12 9:00:00 carvedilol 25 mg, 1 tab, PO No Longer Sushila [facility] Route: PO, Drug Active 2012 Medical form: TAB, Q12H, Center Dosing Weight 118.2, kg, Start date: 10/04/12 21:00:00, Duration: 30 day, Stop date: 11/03/12 9:00:00 Brooker 325 mg-10 30 mL, Route: PO No Longer [place] Fei mg / 15 mL oral PO, Drug Form: Active 2012 Medical solution SOLN, Dosing Center Weight 118.2, kg, Q4H, PRN Pain Score 6-10, Start date: 10/04/12 17:20:00, Duration: 30 day, Stop date: 11/03/12 17:19:00 Diovan 160 mg, 1 tab, PO No Longer Sushila [facility] Route: PO, Drug Active 2012 Medical form: TAB, Center Daily, Dosing Weight 118.2, kg, Start date: 10/04/12 14:00:00, Duration: 30 day, Stop date: 11/03/12 9:00:00 Trandate 10 mg, 2 mL, IVP No Longer Low [facility] Route: IVP, Drug Active 2012 Medical form: INJ, Q4H, Center PRN Elevated BP, Start date: 10/04/12 9:05:00, Duration: 30 day, Stop date: 11/03/12 9:04:00 hydrALAZINE 20 mg, 1 mL, IVP No Longer Low [facility] Route: IVP, Drug Active 2012 Medical form: [...] regular 12 unit, 0.12 SUB-Q No Longer [place] Fei mL, Route: Active 2012 Medical SUB-Q, [...] 1 mg, Route: IM, IM No Longer [facility] Drug form: Active 2012 Medical PDR/INJ, PRN, Center Dosing Weight 118.2, kg, PRN Blood Glucose Results, Start date: 10/04/12 0:40:00, Duration: 30 day, Stop date: 11/03/12 0:39:00 Ofirmev 1,000 mg, 100 IV No Longer [facility] mL, Route: IV, Active 2012 Medical Drug form: INJ, Center Q6H, Start date: 10/03/12 18:00:00, Duration: 4 doses or times, Stop date: 10/04/12 12:00:00 Mefoxin 2 gm, Route: IVPB No Longer [facility] IVPB, Drug form: Active 2012 Medical INJ, ABXQ8H, [place] Start date: 10/03/12 16:00:00, Duration: 2 doses or times, Stop date: 10/04/12 0:00:00 Lopressor 5 mg, 5 mL, IV No Longer Low [facility] Route: IV, Drug Active 2012 Medical form: INJ, Q6H, Center Start date: 10/03/12 16:00:00, Duration: 30 day, Stop date: 11/02/12 10:00:00 Humulin R 100 10 unit, 0.1 mL, SUB-Q No Longer [facility] units/mL Route: SUB-Q, Active 2012 Medical injectable Drug form: [facility] solution TID-Before Meals, PRN Blood Glucose Results, Start date: 10/03/12 14:30:00, Duration: 30 day, Stop date: 11/02/12 14:29:00 Dextrose 50% in 50 mL, Route: IV No Longer [facility] Water IV IV, Start date: Active 2012 Medical 10/03/12 [place] 14:29:00, Duration: 30 day, Stop date: 11/02/12 14:28:00, PRN Blood Glucose Results Dextrose 50% in 25 mL, Route: IVP No Longer [facility] Water IV IVP, Start date: Active 2012 Medical 10/03/12 [place] 14:28:00, Duration: 30 day, Stop date: 11/02/12 14:27:00, PRN Blood Glucose Results Zofran 4 mg, 2 mL, IVP No Longer Low [place] Route: IVP, Drug Active 2012 Medical form: INJ, Q8H, Center PRN Nausea, Start date: 10/03/12 14:22:00, Duration: 30 day, Stop date: 11/02/12 14:21:00 naloxone 0.2 mg, 0.5 mL, IV No Longer Bagshi [place] Route: IV, Drug Active 2012 Medical form: INJ, PRN, Center PRN Narcotic Reversal, Start date: 10/03/12 14:21:00, Duration: 30 day, Stop date: 11/02/12 14:20:00 hydromorphone IV, Start date: IV No Longer Low [place] 15 mg 10/03/122012 Medical 14:19:00, Center Duration: 30, 30 ml, 118.2 Phenergan 12.5 mg, 0.5 mL, [facility] [place] [facility]: IVPB, Active 2012 Medical Drug form: INJ, Center Q4H, PRN Nausea, Start date: 10/03/12 14:08:00, Duration: 30 day, Stop date: 11/02/12 14:07:00 Phenergan 12.5 mg, 0.5 mL, IM No Longer [facility] Route: IM, Drug Active 2012 Medical form: INJ, Q4H, Center PRN Nausea, Start date: 10/03/12 14:07:00, Duration: 30 day, Stop date: 11/02/12 14:06:00 Benadryl 25 mg, 0.5 mL, IM No Longer Sushila [place] Route: IM, Drug Active 2012 Medical form: INJ, Center Bedtime, PRN Insomnia, Start date: 10/03/12 14:04:00, Duration: 30 day, Stop date: 11/02/12 14:03:00 Lactated 1,000 mL, Rate: IV No Longer Low [place] Ringers 125 ml/hr, Active 2012 Medical Injection IV Infuse over: 8 Center 1,000 mL hr, Route: IV, kg, Total Volume: 1,000, Start date: 10/03/12 14:00:00, Duration: 30 day, Stop date: 11/02/12 13:59:00 ondansetron 4 mg, 2 mL, IVP No Longer Jose [facility] Route: IVP, Drug Active 2012 Medical form: [...] mg, 0.25 mL, IVP No Longer Jose [facility] Route: IVP, Drug Active 2012 Medical form: [...] 2 gm, Route: IVPB No Longer Sushila [place] IVPB, Drug form: Active 2012 Medical INJ, PRE OP, Center Priority: STAT, Start date: 10/03/12 5:50:00, Duration: 1 day, Stop date: 10/04/12 5:49:00 Mobic 15 mg 10 mg, PO, PO Active [place] oral tablet Daily, 30 tab, 2012 Medical Substitution Center Allowed, TAB Zetia Daily, Active [facility] Substitution 2011 Medical Allowed Center Klor-Con 10 10 mEq, 1 tab, PO Active [facility] oral tablet, PO, Daily, 180 2011 Medical extended tab, Center release Substitution Allowed, ERTAB ferrous 324 mg, 1 tab, PO Active [facility] gluconate 324 PO, Daily, 100 2011 Medical mg oral tablet tab, Center Substitution Allowed, TAB Lasix 40 mg 40 mg, 1 tab, PO Active [facility] oral tablet PO, Daily, 30 2011 Medical tab, Center Substitution Allowed, TAB Cymbalta 60 mg 60 mg, 1 cap, PO Active [facility] oral delayed PO, BID, 30 cap, 2011 Medical release capsule Substitution Center Allowed, ECCAP Crestor 20 mg 20 mg, 1 tab, PO Active [facility] oral tablet PO, Daily, 30 2011 Medical tab, Center Substitution Allowed, TAB Flexeril 10 mg 10 mg, 1 tab, PO Active [facility] oral tablet PO, TID, PRN, 30 2011 Medical tab, for spasm, Center Substitution Allowed, TAB Lyrica 150 mg 150 mg, 1 cap, PO Active [facility] oral capsule PO, BID, 90 cap, 2011 Medical Substitution Center Allowed, CAP Klonopin 0.5 mg 0.5 mg, 1 tab, PO Active [facility] oral tablet PO, TID, 2011 Medical Substitution Center Allowed, TAB Diovan 160 mg 160 mg, 1 tab, PO Active [place] oral tablet PO, Daily, 30 2011 Medical tab, Center Substitution Allowed, TAB carvedilol 25 25 mg, 1 tab, PO Active [place] mg oral tablet PO, BID, 60 tab, 2011 Medical Substitution Center Allowed, TAB omeprazole 20 20 mg, 1 tab, PO Active 10/23/ [place] mg oral enteric PO, Daily, 30 [...] Allowed NovoLog Substitution Active [place] Allowed 2011 [facility] Levemir FlexPen Substitution Active [facility] Allowed 2011 [facility] Allergies, Adverse Reactions, Alerts Substance Category Reaction Severity Reaction Status Date Comments Source type Reported Immunizations Immunization Date Given Site Status Last Updated Comments Source influenza virus 07/14/2013 completed Diony [facility] vaccine, [facility] inactivated Center pneumococcal 07/14/2013 completed Diony [facility] 23-valent vaccine [facility] Center Results Order Name Results Value Reference Date Interpretation Comments Source Range CHEMISTRY U Preg Negative Negative 08/13 Normal [facility] (08/13/2013 13:30:00) [place] URINALYSIS UA RBC 0-2 /HPF 0 - 2 08/13 Normal [facility] URINALYSIS UA WBC 3-5 /HPF None Seen 08/13 Normal [facility] URINALYSIS UA Sq Epi Few /LPF Few 08/13 Normal [facility] URINALYSIS Micro? Performed 08/13 Normal [facility] (08/13/2013 13:30:00) Center URINALYSIS UA Hyal Cast 0-2 0 - 2 08/13 Normal [facility] (08/13/2013 13:30:00) Center URINALYSIS UA Glucose 250 mg/dL Negative 08/13 [facility] URINALYSIS UA Blood Negative Negative 08/13 Normal [facility] (08/13/2013 13:30:00) Center URINALYSIS UA Ketones >=80 mg/dL Negative 08/13 [facility] URINALYSIS UA 0.2 EU/dL 0.1 - 1.0 08/13 Normal [facility] Urobilinogen /2012 [facility] URINALYSIS UA Nitrite Negative Negative 08/13 Normal Medical (08/13/2013 13:30:00) [place] URINALYSIS UA Bili Small 1 Negative 08/13 ABN 1Result Comment: Interpret positive bilirubin results with caution. Confirmatory testing not possible due to the unavailability of reagent. Correlation with Medical *ABN* serum chemistry results recommended. [place] (08/13/2013 13:30:00) URINALYSIS UA Leuk Est Negative Negative 08/13 Normal [facility] (08/13/2013 13:30:00) [place] URINALYSIS UA Protein Negative Negative 08/13 Normal [facility] (08/13/2013 13:30:00) [place] URINALYSIS UA pH 6.0 5.0 - 8.0 08/13 Normal [facility] URINALYSIS UA Spec Grav 1.020 <=1.030 08/13 Normal [facility] URINALYSIS UA Color Yellow Yellow 08/13 Medical *NA* [place] (08/13/2013 13:30:00) URINALYSIS UA Turbidity Clear Clear 08/13 Normal [facility] (08/13/2013 13:30:00) [place] CHEMISTRY BE Mark 1 mMol/L -2-2 - 2 08/13 Normal [facility] CHEMISTRY pO2 Mark 29 mm[Hg] 20 - 49 08/13 Normal [facility] CHEMISTRY O2 Sat Mark 55.9 % 40.0 - 08/13 Normal [facility] 70.0 [facility] CHEMISTRY Temp Amrk 37.0 Abby 08/13 [facility] CHEMISTRY HCO3 Mark 26 mMol/L 22 - 26 08/13 Normal [facility] CHEMISTRY pCO2 Mark 41 mm[Hg] 38 - 52 08/13 Normal [facility] CHEMISTRY pH Mark 7.41 7.28 - 08/13 Normal [facility] 7.42 [facility] CHEMISTRY eGFR 60 08/13 2Result Comment: The eGFR is calculated using the CKD-EPI formula. In most young, healthy individuals the eGFR will be >90 mL/ min/1.73m2. The eGFR declines with age. An eGFR of 60-89 may be normal in [facility] mL/min/1. some populations, particularly the elderly, for whom the CKD-EPI formula has not been extensively validated. Use of the eGFR is not recommended in the following populations: [address] Individuals with unstable creatinine concentrations, including [...] 25 meq/L 24 - 32 08/13 Normal [facility] CHEMISTRY Chloride Lvl 98 meq/L 95 - 109 08/13 Normal [facility] CHEMISTRY BUN 9 mg/dL 7 - 22 08/13 Normal [facility] CHEMISTRY Calcium Lvl 9.1 mg/dL 8.5 - 10.5 08/13 Normal [facility] CHEMISTRY Glucose Lvl 301 mg/dL 70 - 99 08/13 [place] 3Interpretive Data: Adult reference range values reflect the clinical guidelines of the [place] [employer]. [facility] CHEMISTRY Potassium Lvl 3.8 meq/L 3.5 - 5.1 08/13 Normal [facility] CHEMISTRY Sodium Lvl 134 meq/L 135 - 145 08/13 LOW [facility]2012 [facility] CHEMISTRY Creatinine 1.1 mg/dL 0.5 - 1.4 08/13 Normal [facility] CHEMISTRY Bili Total 0.6 mg/dL 0.2 - 1.3 08/13 Normal [facility] CHEMISTRY ASPARTATE 17 unit/L 0 - 37 08/13 Normal [facility] TRANSAMINASE [facility] CHEMISTRY ALANINE 22 unit/L 0 - 65 08/13 Normal [facility] AMINOTRANSFER [facility] CHEMISTRY Albumin Lvl 3.5 g/dL 3.5 - 5.0 08/13 Normal [facility] CHEMISTRY Alk Phos 130 unit/L 39 - 136 08/13 Normal [facility] CHEMISTRY Total Protein 7.8 g/dL 6.4 - 8.4 08/13 Normal [facility] CHEMISTRY B/C Ratio 8 6 - 25 08/13 Normal [facility] CHEMISTRY AGAP 14.8 meq/L 10.0 - 12 Normal [facility] 20.0 [facility] CHEMISTRY Globulin 4.3 g/dL 2.0 - 4.0 08/13 HI [facility] CHEMISTRY A/G Ratio 0.8 0.7 - 1.6 12 Normal [facility] HEMATOLOGY Monocytes # 0.8 K/CMM 0.0 - 0.8 12 Normal [facility] HEMATOLOGY Eosinophils # 0.0 K/CMM 0.0 - 0.5 12 Normal [facility] HEMATOLOGY Basophils # 0.0 K/CMM 0.0 - 0.2 08/13 Normal [facility] HEMATOLOGY Basophils 0.1 % 0.0 - 1.0 08/13 Normal [facility] HEMATOLOGY Lymphocytes # 1.4 K/CMM 1.0 - 5.5 08/13 Normal [facility] HEMATOLOGY Segs-Bands # 10.5 K/CMM 1.5 - 8.1 08/13 [facility] HEMATOLOGY Monocytes 6.3 % 2.0 - 12.0 08/13 Normal [facility] HEMATOLOGY Eosinophils 0.2 % 0.0 - 4.0 08/13 Normal [facility] HEMATOLOGY Lymphocytes 11.3 % 20.0 - 12/08 LOW [facility] 40.0 /2012 [facility] HEMATOLOGY Segs 82.1 % 45.0 - 1208 [facility] 75.0 [facility] HEMATOLOGY WBC X 10x3 12.7 K/CMM 3.7 - 10.4 08/13 [facility] HEMATOLOGY Hct 37.0 % 36.0 - 12/08 Normal [facility] 48.0 [facility] HEMATOLOGY RBC X 10x6 4.36 M/CMM 4.20 - 12/08 Normal [facility] 5.40 /2012 [facility] HEMATOLOGY Hgb 12.6 g/dL 12.0 - 12/08 Normal [facility] 16.0 /2012 [facility] HEMATOLOGY MCV 84.8 fL 81.0 - 12/08 Normal [facility] 99.0 /2012 [facility] HEMATOLOGY MCH 28.8 pg 27.0 - 12 Normal [facility] 31.0 /2012 [facility] HEMATOLOGY MCHC 34.0 g/dL 32.0 - 12/08 Normal [facility] 36.0 [facility] HEMATOLOGY Platelet 238 K/CMM 133 - 450 12 [facility] HEMATOLOGY MPV 9.5 fL 7.4 - 10.4 1208 Normal [facility] HEMATOLOGY RDW 13.1 % 11.5 - 08/13 Normal [facility] 14.5 [facility] BEDSIDE Gluc POC Notify 07/26 [facility] GLUCOSE Comment 1 RN/ /2013 [facility] BED[facility]IDE Glucose POC 274 mg/dL 70 - 99 07/26 [place] 1Interpretive [facility] GLUCOSE Data: [facility] Upper Reportable Limit: 200 mg/dL. BEDSIDE Glucose POC 146 mg/dL 70 - 99 07/15 [place] 2Interpretive [facility] GLUCOSE Data: [facility] Upper Reportable Limit: 200 mg/dL. BEDSIDE Gluc POC Notify 07/15 [facility] GLUCOSE Comment 1 RN/MD /2012 [facility] BEDSIDE Glucose POC 140 mg/dL 70 - 99 07/14 [place] 3Interpretive [facility] GLUCOSE Data: [facility] Upper Reportable Limit: 200 mg/dL. BEDSIDE Gluc POC Notify 07/14 [facility] GLUCOSE Comment 1 RN/ /2013 [facility] TESTING Center BEDSIDE Gluc POC Notify 07/14 [facility] GLUCOSE Comment 1 RN/ /2013 [facility] BEDSIDE Glucose POC 44 mg/dL 70 - 99 07/14 LOW 4Interpretive [facility] GLUCOSE Data: [facility] Upper Reportable Limit: 200 mg/dL. IMMUNOLOGY Golden-HIV Negative Negative 07/14 [facility] 09/07 [facility] *NA* Center (07/14/2013 00:27:00) IMMUNOLOGY Golden-Hep C Negative Negative 07/14 [facility] *NA* Center (07/14/2013 00:27:00) CHEMISTRY eGFR 109 07/13 5Result Comment: The eGFR is calculated using the CKD-EPI formula. In most young, healthy individuals the eGFR will be >90 mL/ min/1.73m2. The eGFR declines with age. An eGFR of 60-89 may be normal in [facility] mL/min/1.7 some populations, particularly the elderly, for [...] 135 meq/L 135 - 145 07/13 Normal [facility] CHEMISTRY Chloride Lvl 95 meq/L 95 - 109 07/13 Normal [facility] CHEMISTRY AGAP 16.5 meq/L 10.0 - 07/13 Normal [facility] 20.0 [facility] CHEMISTRY Glucose Lvl 322 mg/dL 70 - 99 07/13 [place] 8Interpretive Data: Adult reference range values reflect the clinical guidelines of the [place] [employer]. [facility] Center CHEMISTRY Creatinine 0.6 mg/dL 0.5 - 1.4 07/13 Normal [facility] CHEMISTRY BUN 6 mg/dL 7 - 22 07/13 LOW [facility] CHEMISTRY Calcium Lvl 8.6 mg/dL 8.5 - 10.5 07/13 Normal [facility] CHEMISTRY CO2 27 meq/L 24 - 32 07/13 Normal [facility] CHEMISTRY Potassium Lvl 3.5 meq/L 3.5 - 5.1 07/13 Normal [facility]2012 [facility] INFECTIOUS C difficile Negative 1 Negative 07/13 Normal 1Interpretive Data: Call [employer] Clostridium difficile assay utilizes loop-mediated isothermal DNA amplification (LAMP) technology to detect a 204 bp region of the tcdA gene within the PaLoc gene [facility] segment present in all known toxigenic C. difficile strains. [facility] (07/13/2013 00:00:59) [place] The assay utilizes FDA cleared IVD reagents. Performance characteristics have been verified by the [facility] within the [facility]. The [facility] is authorized under the Clinical Laboratory Improvement Amendment of 1988 (CLIA-88) to perform high complexity testing. CHEMISTRY Lactic Acid 1.9 mMol/L 0.5 - 2.2 07/12 Normal [facility] CHEMISTRY eGFR 88 07/12 6Result Comment: The eGFR is calculated using the CKD-EPI formula. In most young, healthy individuals the eGFR will be >90 mL/ min/1.73m2. The eGFR declines with age. An eGFR of 60-89 may be normal in [facility] mL/min/1. some populations, particularly the elderly, for whom the CKD-EPI formula has not been extensively validated. Use of the eGFR is not recommended in the following populations: [place] [address] Center Individuals with unstable creatinine concentrations, including [...] CHEMISTRY Troponin-I null 0.00 - 11 Normal [facility] 0.40 [facility] HEMATOLOGY Basophils # 0.0 K/CMM 0.0 - 0.2 07/12 Normal [facility] HEMATOLOGY Eosinophils # 0.3 K/CMM 0.0 - 0.5 07/12 Normal [facility] HEMATOLOGY Monocytes # 1.0 K/CMM 0.0 - 0.8 07/12 HI [facility] HEMATOLOGY Lymphocytes # 3.0 K/CMM 1.0 - 5.5 07/12 [facility] HEMATOLOGY Segs-Bands # 6.4 K/CMM 1.5 - 8.1 07/12 Normal [facility] HEMATOLOGY Basophils 0.4 % 0.0 - 1.0 07/12 Normal [facility] HEMATOLOGY Eosinophils 2.8 % 0.0 - 4.0 07/12 Normal [facility] HEMATOLOGY Plt Morph Normal 07/12 [facility] (07/12/2013 16:29:10) [place] HEMATOLOGY RBC Morph Normal 07/12 [facility] (07/12/2013 16:29:10) Center HEMATOLOGY Monocytes 9.4 % 2.0 - 12.0 07/12 Normal [facility] HEMATOLOGY Lymphocytes 27.9 % 20.0 - 07/12 Normal [place] 40.0 [facility] HEMATOLOGY Segs 59.5 % 45.0 - 07/12 Normal [facility] 75.0 [facility] HEMATOLOGY MCV 85.3 fL 81.0 - 07/12 [facility] 99.0 [facility] HEMATOLOGY Hct 41.2 % 36.0 - 07/12 Normal [place] 48.0 [facility] HEMATOLOGY Hgb 13.6 g/dL 12.0 - 07/12 Normal [facility] 16.0 /2013 [facility] HEMATOLOGY RBC X 10x6 4.84 M/CMM 4.20 - 07/12 Normal [facility] 5.40 /2012 Medical [place] HEMATOLOGY MPV 9.4 fL 7.4 - 10.4 07/12 Normal [facility] HEMATOLOGY Platelet 225 K/CMM 133 - 450 07/12 Normal [facility] HEMATOLOGY MCH 28.1 pg 27.0 - 07/12 Normal [facility] 31.0 Medical [place] HEMATOLOGY MCHC 33.0 g/dL 32.0 - 07/12 Normal [facility] 36.0 [facility] HEMATOLOGY RDW 12.7 % 11.5 - 07/12 Normal [facility] 14. [facility] HEMATOLOGY WBC X 10x3 10.7 K/CMM 3.7 - 10.4 07/12 HI [facility] CHEMISTRY AGAP 12.4 meq/L 10.0 - 07/12 Normal [facility] . [facility] CHEMISTRY Calcium Lvl 8.8 mg/dL 8.5 - 10.5 07/12 Normal [facility] CHEMISTRY Chloride Lvl 102 meq/L 95 - 109 07/12 Normal [facility] CHEMISTRY Potassium Lvl 3.4 meq/L 3.5 - 5.1 07/12 LOW [facility] CHEMISTRY CO2 30 meq/L 24 - 32 07/12 Normal [facility] CHEMISTRY Sodium Lvl 141 meq/L 135 - 145 07/12 Normal [facility] CHEMISTRY Creatinine 0.8 mg/dL 0.5 - 1.4 07/12 Normal [facility] CHEMISTRY BUN 6 mg/dL 7 - 22 07/12 LOW [facility] CHEMISTRY Glucose Lvl 163 mg/dL 70 - 99 07/12 [place] 9Interpretive Data: Adult reference range values reflect the clinical guidelines of the [place] [employer]. [facility] IMMUNOLOGY CDC-HIV 1/2 Negative Negative 07/12 Medical *NA* Center (07/12/2013 16:02:06) CHEMISTRY Calcium Lvl 8.4 mg/dL 8.5 - 10.5 07/12 LOW [facility] CHEMISTRY AGAP 10.4 meq/L 10.0 - 07/12 Normal [facility] CHEMISTRY eGFR 76 07/12 7Result Comment: The eGFR is calculated using the CKD-EPI formula. In most young, healthy individuals the eGFR will be >90 mL/ min/1.73m2. The eGFR declines with age. An eGFR of 60-89 may be normal in [facility] mL/min/1.7 some populations, particularly the elderly, for whom the CKD-EPI formula has not been extensively validated. Use of the eGFR is not recommended in the following populations: [address] Individuals with unstable creatinine concentrations, including [...] 140 meq/L 135 - 145 07/12 Normal [facility] CHEMISTRY Chloride Lvl 103 meq/L 95 - 109 07/12 Normal [facility] CHEMISTRY Potassium Lvl 3.4 meq/L 3.5 - 5.1 07/12 LOW [facility]2012 [facility] CHEMISTRY BUN 9 mg/dL 7 - 22 07/12 Normal [facility] CHEMISTRY Creatinine 0.9 mg/dL 0.5 - 1.4 07/12 Normal [facility] CHEMISTRY Glucose Lvl 296 mg/dL 70 - 99 07/12 [place] 10Interpretive Data: Adult reference range values reflect the clinical guidelines of the [place] [employer]. [facility] CHEMISTRY CO2 30 meq/L 24 - 32 07/12 Normal [facility] CHEMISTRY Troponin-I null 0.00 - 11 Normal [facility] 0.40 [facility] CHEMISTRY Lipase Lvl 76 unit/L 73 - 393 07/12 Normal [facility] CHEMISTRY B/C Ratio 11 6 - 25 07/12 Normal [facility] CHEMISTRY ASPARTATE 25 unit/L 0 - 37 07/12 Normal [facility] CHEMISTRY Bili Total 0.4 mg/dL 0.2 - 1.3 07/12 Normal [facility] CHEMISTRY Alk Phos 119 unit/L 39 - 136 07/12 Normal [facility] CHEMISTRY Albumin Lvl 3.9 g/dL 3.5 - 5.0 07/12 Normal [facility] CHEMISTRY ALANINE 29 unit/L 0 - 65 07/12 Normal [facility] AMINO [facility] CHEMISTRY Total Protein 8.1 g/dL 6.4 - 8.4 07/12 Normal [facility] CHEMISTRY Globulin 4.2 g/dL 2.0 - 4.0 07/12 HI [facility] CHEMISTRY A/G Ratio 0.9 0.7 - 1.6 07/12 Normal [facility] HEMATOLOGY Monocytes # 0.6 K/CMM 0.0 - 0.8 07/12 Normal [facility] HEMATOLOGY Segs-Bands # 9.5 K/CMM 1.5 - 8.1 07/12 HI [facility] HEMATOLOGY Eosinophils # 0.2 K/CMM 0.0 - 0.5 07/12 Normal [facility] HEMATOLOGY Lymphocytes # 2.1 K/CMM 1.0 - 5.5 07/12 Normal [facility] HEMATOLOGY Basophils 0.2 % 0.0 - 1.0 07/12 Normal [facility] HEMATOLOGY Neut Vac Slight None Seen 07/12 ABN [facility] *ABN* [place] (07/12/2013 03:30:00) HEMATOLOGY Hypochrom Slight None Seen 07/12 Normal [facility] (07/12/2013 03:30:00) [place] HEMATOLOGY Basophils # 0.0 K/CMM 0.0 - 0.2 07/12 Normal [facility] HEMATOLOGY RBC Morph Normal 07/12 Normal [facility] (07/12/2013 03:30:00) [place] HEMATOLOGY Eosinophils 1.6 % 0.0 - 4.0 07/12 Normal [facility] HEMATOLOGY Monocytes 4.6 % 2.0 - 12.0 07/12 Normal [facility] HEMATOLOGY Segs 76.6 % 45.0 - 07/12 HI [facility] 75.0 [facility] HEMATOLOGY Lymphocytes 17.0 % 20.0 - 07/12 LOW [facility] 40.0 [facility] HEMATOLOGY Plt Morph Normal 07/12 Normal [facility] (07/12/2013 03:30:00) [place] HEMATOLOGY MCHC 32.4 g/dL 32.0 - 07/12 Normal [facility] 36.0 [facility] HEMATOLOGY MCH 27.4 pg 27.0 - 07/12 Normal [facility] 31.0 /2012 [facility] HEMATOLOGY RDW 12.7 % 11.5 - 07/12 Normal [facility] 14.5 /2012 [facility] HEMATOLOGY Platelet 235 K/CMM 133 - 450 07/12 Normal [facility] HEMATOLOGY MPV 9.4 fL 7.4 - 10.4 07/12 Normal [facility] HEMATOLOGY Hgb 12.9 g/dL 12.0 - 07/12 Normal [facility] 16.0 /2012 [facility] HEMATOLOGY MCV 84.3 fL 81.0 - 07/12 Normal [facility] 99.0 /2012 [facility] HEMATOLOGY Hct 39.6 % 36.0 - 07/12 Normal [facility] 48.0 /2012 [facility] HEMATOLOGY WBC X 10x3 12.4 K/CMM 3.7 - 10.4 07/12 HI [facility] HEMATOLOGY RBC X 10x6 4.70 M/CMM 4.20 - 07/12 Normal [facility] 5.40 /2012 [facility] CHEMISTRY U Preg Negative Negative 07/12 Normal [facility] (07/12/2013 03:00:00) Center URINALYSIS UA Leuk Est Negative Negative 07/12 Normal [facility] (07/12/2013 03:00:00) Center URINALYSIS UA 0.2 EU/dL 0.1 - 1.0 07/12 Normal [facility] Urobilinogen [facility] URINALYSIS UA Nitrite Negative Negative 07/12 Normal [facility] (07/12/2013 03:00:00) Center URINALYSIS UA Bili Negative Negative 07/12 [facility] *NA* Center (07/12/2013 03:00:00) URINALYSIS UA pH 6.0 5.0 - 8.0 07/12 Normal [facility] URINALYSIS UA Protein Negative Negative 07/12 Normal [facility] mg/dL [facility] URINALYSIS UA Glucose >=1000 Negative 07/12 ABN [facility] mg/dL [facility] URINALYSIS UA Ketones 15 mg/dL Negative 07/12 ABN [facility] URINALYSIS UA Spec Grav 1.020 <=1.030 07/12 Normal [facility] URINALYSIS UA Blood Negative Negative 07/12 Normal [facility] (07/12/2013 03:00:00) [place] URINALYSIS UA Color Yellow Yellow 07/12 [facility] *NA* Center (07/12/2013 03:00:00) URINALYSIS UA Turbidity Clear Clear 07/12 Normal [facility] (07/12/2013 03:00:00) [place] URINALYSIS UA RBC 0-2 /HPF 0 - 2 07/12 Normal [facility] URINALYSIS UA WBC 3-5 /HPF None Seen 07/12 Normal [facility] URINALYSIS UA Sq Epi Many /LPF Few 07/12 ABN [facility] URINALYSIS UA Bacteria Few /HPF None Seen 07/12 Normal [facility] URINALYSIS UA [place] Yeast Moderate None Seen 07/12 [facility] URINALYSIS Micro? Performed 07/12 Normal [facility] (07/12/2013 03:00:00) [place] Abdomen/Pel Abdomen/Pelvi EXAM: CT ABDOMEN WITH CONTRAST 07/12 - [facility] vis w s w contrast - Medical contrast CT CT EXAM: CT PELVIS WITH CONTRAST This report was dictated by a [employer]/Fellow. I have personally reviewed the images as [...] mg/dL 70 - 99 04/03 [place] 1Interpretive [facility] GLUCOSE [place] /2012 Data: [facility] Upper Reportable Limit: 200 mg/dL. BEDSIDE Comment2 Sliding 04/03 [facility] [place] GLUCOSE Scale /2012 [facility] BEDSIDE Comment1 Notify 04/03 Located within [facility] GLUCOSE RN/ /2012 [facility] BEDSIDE Comment1 Notify 04/03 Located within [facility] GLUCOSE RN/MD /2012 [facility] BEDSIDE Gluc POC 198 mg/dL 70 - 99 04/03 [place] 2Interpretive [facility] GLUCOSE Lifscn Data: [facility] [place] Upper Reportable Limit: 200 mg/dL. BEDSIDE Comment2 Sliding 04/03 NA [facility] GLUCOSE Scale [place] [facility] Abdomen 2 Abdomen 2 EXAM: XR ABDOMEN 1 VIEW 04/03 - [facility] views views - Medical Center DATE: March 25 [...] Cho MD. BEDSIDE Comment2 Sliding 04/03 NA [facility] GLUCOSE Scale /2012 [facility] BEDSIDE Comment1 Notify 04/03 NA [facility] GLUCOSE RN/ /2012 [facility] BEDSIDE Gluc POC 182 mg/dL 70 - 99 04/03 HI 3Interpretive [facility] GLUCOSE Lifscn Data: [facility] Upper Reportable Limit: 200 mg/dL. CHEMISTRY Troponin-T null 0.000 - 04/03 Normal [facility] 0.100 [facility] CHEMISTRY Troponin-I null 0.00 - 04/03 Normal [facility] 0.40 [facility] CHEMISTRY Total CK 41 unit/L 12 - 191 04/03 Normal [facility] CHEMISTRY Creatinine 0.6 mg/dL 0.5 - 1.4 04/03 Normal [facility] Lvl [facility] CHEMISTRY Sodium Lvl 137 meq/L 135 - 145 04/03 Normal [facility] CHEMISTRY CO2 25 meq/L 24 - 32 04/03 Normal [facility] CHEMISTRY Calcium Lvl 8.2 mg/dL 8.5 - 10.5 04/03 LOW [facility] CHEMISTRY AGAP 17.9 meq/L 10.0 - 04/03 Normal [facility] 20.0 [facility] CHEMISTRY Potassium Lvl 3.9 meq/L 3.5 - 5.1 04/03 Normal [facility] CHEMISTRY Chloride Lvl 98 meq/L 95 - 109 04/03 Normal [facility] CHEMISTRY Glucose Lvl 266 mg/dL 70 - 99 04/03 HI 6Interpretive Data: Adult reference range values reflect the clinical guidelines of the [place] [employer]. [facility] CHEMISTRY BUN 3 mg/dL 7 - 22 04/03 LOW [facility] CHEMISTRY eGFR 109 04/03 NA 4Result Comment: The eGFR is calculated using the CKD-EPI formula. In most young, healthy individuals the eGFR will be > 90 mL/min/1.73m2. The eGFR declines with age. An eGFR of 60-89 may be normal in [facility] mL/min/1. some populations, particularly the elderly, for whom the CKD-EPI formula has not been extensively validated. Use of the eGFR is not recommended in the following populations: [address] Individuals with unstable creatinine concentrations, including [...] Hgb 10.5 g/dL 12.0 - 04/03 [facility] 16.0 [facility] HEMATOLOGY RBC 4.22 M/CMM 4.20 - 04/03 Normal [facility] 5.40 /2012 [facility] HEMATOLOGY WBC 10.3 K/CMM 3.7 - 10.4 04/03 Normal [facility] HEMATOLOGY Hct 33.5 % 36.0 - 04/03 [facility] 48.0 [facility] HEMATOLOGY MPV 8.8 fL 7.4 - 10.4 04/03 Normal [facility] HEMATOLOGY Platelet 276 K/CMM 133 - 450 04/03 Normal [facility] HEMATOLOGY RDW 18.7 % 11.5 - 04/03 HI [facility] 14.5 [facility] HEMATOLOGY MCHC 31.2 g/dL 32.0 - 04/03 [facility] 36.0 [facility] HEMATOLOGY MCH 24.8 pg 27.0 - 04/03 [facility] 31.0 [facility] HEMATOLOGY MCV 79.5 fL 81.0 - 04/03 [facility] 99.0 [facility] HEMATOLOGY Segs 58.6 % 45.0 - 04/03 Normal 75.0 [facility] HEMATOLOGY Lymphocytes 29.9 % 20.0 - 04/03 Normal 40.0 [facility] HEMATOLOGY Basophils 1.3 % 0.0 - 1.0 04/03 HI [facility] HEMATOLOGY Lymphocytes # 3.1 K/CMM 1.0 - 5.5 04/03 Normal [facility] HEMATOLOGY Segs-Bands # 6.0 K/CMM 1.5 - 8.1 04/03 Normal [facility] HEMATOLOGY Eosinophils 2.8 % 0.0 - 4.0 04/03 Normal [facility] HEMATOLOGY Eosinophils # 0.3 K/CMM 0.0 - 0.5 04/03 Normal [facility] HEMATOLOGY Monocytes # 0.8 K/CMM 0.0 - 0.8 04/03 Normal [facility] HEMATOLOGY Basophils # 0.1 K/CMM 0.0 - 0.2 04/03 Normal [facility] HEMATOLOGY Monocytes 7.4 % 2.0 - 12.0 04/03 Normal [facility] CHEMISTRY Troponin-I null 0.00 - 04/03 Normal 0. [facility] CHEMISTRY Total CK 51 unit/L 04/03 Normal [facility] CHEMISTRY Troponin-T null 0.000 - 04/03 Normal 0.100 [facility] CHEMISTRY Bili Direct 0.1 mg/dL 0.0 - 0.3 04/03 Normal [facility] CHEMISTRY Bili Total 0.4 mg/dL 0.2 - 1.3 04/03 Normal [facility] CHEMISTRY Bili Indirect 0.3 mg/dL 0.0 - 1.0 04/03 Normal [facility] CHEMISTRY ALT 22 unit/L 0 - 65 04/03 Normal [facility] CHEMISTRY AST 31 unit/L 0 - 37 04/03 Normal [facility] CHEMISTRY Lipase Lvl 54 unit/L 73 - 393 04/03 LOW [facility] CHEMISTRY Troponin-I null 0.00 - 04/02 Normal [place] 0.40 [facility] CHEMISTRY Total CK 24 unit/L 12 - 04/02 Normal [facility] CHEMISTRY AGAP 17.5 meq/L 10.0 - 04/02 Normal [facility] 20. [facility] CHEMISTRY eGFR 88 04/02 NA 5Result Comment: The eGFR is calculated using the CKD-EPI formula. In most young, healthy individuals the eGFR will be > 90 mL/min/1.73m2. The eGFR declines with age. An eGFR of 60-89 may be normal in [facility] mL/min/1.7 some populations, particularly the elderly, for whom the CKD-EPI formula has not been extensively validated. Use of the eGFR is not recommended in the following populations: [address] Individuals with unstable creatinine concentrations, including [...] 0.8 mg/dL 0.5 - 1.4 04/02 Normal [facility] Lvl [facility] CHEMISTRY Potassium Lvl 3.5 meq/L 3.5 - 5.1 04/02 Normal [facility] CHEMISTRY Chloride Lvl 97 meq/L 95 - 109 04/02 Normal [facility] CHEMISTRY Glucose Lvl 163 mg/dL 70 - 99 04/02 HI 7Interpretive Data: Adult reference range values reflect the clinical guidelines of the [place] [employer]. [facility] CHEMISTRY BUN 2 mg/dL 7 - 22 04/02 LOW [facility] CHEMISTRY Sodium Lvl 136 meq/L 135 - 145 04/02 Normal [facility] CHEMISTRY Calcium Lvl 8.6 mg/dL 8.5 - 10.5 04/02 Normal [facility] CHEMISTRY CO2 25 meq/L 24 - 32 04/02 Normal [facility] HEMATOLOGY Platelet 378 K/CMM 133 - 450 04/02 Normal [facility] HEMATOLOGY MCHC 33.4 g/dL 32.0 - 04/02 Normal [facility] 36.0 [facility] HEMATOLOGY RDW 17.3 % 11.5 - 04/02 HI [facility] 14.5 [facility] HEMATOLOGY MCV 76.0 fL 81.0 - 04/02 [facility] 99.0 /2012 [facility] HEMATOLOGY MCH 25.4 pg 27.0 - 04/02 [facility] 31.0 /2012 [facility] HEMATOLOGY Hct 34.2 % 36.0 - 04/02 [facility] 48.0 [facility] HEMATOLOGY RBC 4.50 M/CMM 4.20 - 04/02 Normal [facility] 5.40 /2012 [facility] HEMATOLOGY Hgb 11.4 g/dL 12.0 - 04/02 [facility] 16.0 [facility] HEMATOLOGY WBC 9.0 K/CMM 3.7 - 10.4 04/02 Normal [facility] HEMATOLOGY MPV 8.4 fL 7.4 - 10.4 04/02 Normal [facility] HEMATOLOGY Microcyte 2+ None [facility] 17:09:00[facility] HEMATOLOGY Basophils # 0.1 K/CMM 0.0 - 0.2 04/02 Normal [facility] HEMATOLOGY Eosinophils # 0.1 K/CMM 0.0 - 0.5 04/02 Normal [facility] HEMATOLOGY Monocytes # 0.7 K/CMM 0.0 - 0.8 04/02 Normal [facility] HEMATOLOGY Lymphocytes # 1.4 K/CMM 1.0 - 5.5 04/02 Normal [facility] HEMATOLOGY Segs-Bands # 6.7 K/CMM 1.5 - 8.1 04/02 Normal [facility] HEMATOLOGY Basophils 1.3 % 0.0 - 1.0 04/02 HI [facility] HEMATOLOGY Lymphocytes 15.2 % 20.0 - 04/02 [facility] 40.0 [facility] HEMATOLOGY Segs 74.3 % 45.0 - 04/02 [facility] 75.0 [facility] HEMATOLOGY Eosinophils 1.6 % 0.0 - 4.0 04/02 Normal [facility] HEMATOLOGY Monocytes 7.6 % 2.0 - 12.0 04/02 [facility] Chest 1view Chest 1view EXAM: XR CHEST 1 VIEW 04/02 - - [facility] Center DATE: 2013-04-02 1638 hours Read by: [...] mg/dL 70 - 99 03/09 HI 1Interpretive [facility] GLUCOSE Lifscn Data: [facility] Upper Reportable Limit: 200 mg/dL. BEDSIDE Comment1 Notify 03/09 NA [facility] GLUCOSE RN/ [facility] CHEMISTRY eGFR 88 03/09 NA 4Result Comment: The eGFR is calculated using the CKD-EPI formula. In most young, healthy individuals the eGFR will be > 90 mL/min/1.73m2. The eGFR declines with age. An eGFR of 60-89 may be normal in [facility] mL/min/1.7 some populations, particularly the elderly, for whom the CKD-EPI formula has not been extensively validated. Use of the eGFR is not recommended in the following populations: [place] [address] Center Individuals with unstable creatinine concentrations, including [...] 7 mg/dL 7 - 22 03/09 Normal [facility] CHEMISTRY Creatinine 0.8 mg/dL 0.5 - 1.4 03/09 Normal [facility] Lvl [facility] CHEMISTRY Sodium Lvl 138 meq/L 135 - 145 03/09 Normal [facility] CHEMISTRY Potassium Lvl 4.7 meq/L 3.5 - 5.1 03/09 Normal [facility] CHEMISTRY Chloride Lvl 104 meq/L 95 - 109 03/09 Normal [facility] CHEMISTRY CO2 23 meq/L 24 - 32 03/09 LOW [facility] CHEMISTRY Bili Total 0.2 mg/dL 0.2 - 1.3 07/ Normal [facility] CHEMISTRY AST 22 unit/L 0 - 37 / Normal [facility]2012 [facility] CHEMISTRY Total Protein 4.8 g/dL 6.4 - 8.4 07 LOW [facility]2012 [facility] CHEMISTRY Calcium Lvl 7.4 mg/dL 8.5 - 10.5 03/09 LOW [facility]2012 [facility] CHEMISTRY Albumin Lvl 1.9 g/dL 3.5 - 5.0 / LOW [facility]2012 [facility] CHEMISTRY Glucose Lvl 192 mg/dL 70 - 99 07 HI 7Interpretive Data: Adult reference range values reflect the clinical guidelines of the [place] [employer]. [facility] CHEMISTRY Alk Phos 162 unit/L 39 - 136 03/09 HI [facility] CHEMISTRY ALT 18 unit/L 0 - 65 03/09 Normal 2012 [facility] CHEMISTRY A/G Ratio 0.7 0.7 - 1.6 03/09 Normal [facility] CHEMISTRY Globulin 2.9 g/dL 2.0 - 4.0 03/09 Normal [facility]2012 [facility] CHEMISTRY AGAP 15.7 meq/L 10.0 - 07 Normal [facility] 20.0 [facility] CHEMISTRY B/C Ratio 9 6 - 25 03/09 Normal [facility]2012 [facility] HEMATOLOGY Eosinophils 1.9 % 0.0 - 4.0 / Normal [facility]2012 [facility] HEMATOLOGY Basophils 1.0 % 0.0 - 1.0 03/09 Normal [facility] HEMATOLOGY Anisocyte 1+ None Seen 03/09 ABN [facility] *[facility]N* Center (03/09/2013 01:09:00) HEMATOLOGY Lymphocytes # 2.0 K/CMM 1.0 - 5.5 07/ Normal [facility] HEMATOLOGY Monocytes # 0.6 K/CMM 0.0 - 0.8 / Normal [facility]2012 [facility] HEMATOLOGY Eosinophils # 0.1 K/CMM 0.0 - 0.5 07/ Normal [facility]2012 [facility] HEMATOLOGY Basophils # 0.1 K/CMM 0.0 - 0.2 07/ Normal [facility]2012 [facility] HEMATOLOGY Segs-Bands # 4.6 K/CMM 1.5 - 8.1 07 Normal [facility] HEMATOLOGY Segs 62.8 % 45.0 - 07/ Normal [place] 75.0 /2012 [facility] HEMATOLOGY Lymphocytes 26.4 % 20.0 - 07/ Normal [place] 40.0 /2012 [facility] HEMATOLOGY Monocytes 7.9 % 2.0 - 12.0 07/ Normal [facility] HEMATOLOGY RDW 20.7 % 11.5 - 07/04 HI [place] 14.5 /2012 [facility] HEMATOLOGY Platelet 304 K/CMM 133 - 450 07 Normal /2012 [facility] HEMATOLOGY MPV 8.0 fL 7.4 - 10.4 07 Normal [facility] HEMATOLOGY Hct 24.9 % 36.0 - 07/ LOW [place] 48.0 /2012 [facility] HEMATOLOGY MCV 79.3 fL 81.0 - 07/ LOW [place] 99.0 /2012 [facility] [place] HEMATOLOGY MCH 24.7 pg 27.0 - 07 LOW [place] 31.0 /2012 [facility] HEMATOLOGY MCHC 31.2 g/dL 32.0 - 07 LOW [place] 36.0 /2012 [facility] HEMATOLOGY RBC 3.14 M/CMM 4.20 - 07/ LOW [place] 5.40 /2012 [facility] HEMATOLOGY Hgb 7.8 g/dL 12.0 - 07/ LOW [place] 16.0 /2012 [facility] HEMATOLOGY WBC 7.4 K/CMM 3.7 - 10.4 03/09 Normal [facility] BEDSIDE Gluc POC 131 mg/dL 70 - 99 03/09 HI 2Interpretive [facility] GLUCOSE Lifmo Data: [facility] Upper Reportable Limit: 200 mg/dL. BEDSIDE Comment1 Notify 03/09 NA [facility] GLUCOSE RN/MD /2012 [facility] BEDSIDE Comment1 Notify 03/09 NA [facility] GLUCOSE RN/MD /2012 [facility] BEDSIDE Gluc POC 155 mg/dL 70 - 99 03/09 HI 3Interpretive [facility] GLUCOSE Lifsc Data: [facility] Upper Reportable Limit: 200 mg/dL. CHEMISTRY Magnesium Lvl 1.5 mg/dL 1.8 - 2.4 03/08 LOW [facility] CHEMISTRY A/G Ratio 0.7 0.7 - 1.6 03/08 Normal [facility] CHEMISTRY B/C Ratio 8 6 - 25 03/08 Normal [facility] CHEMISTRY Globulin 2.8 g/dL 2.0 - 4.0 03/08 Normal [facility] CHEMISTRY AGAP 15.8 meq/L 10.0 - 03/08 Normal [facility] 20.0 [facility] CHEMISTRY Potassium Lvl 3.8 meq/L 3.5 - 5.1 03/08 Normal [facility] CHEMISTRY Chloride Lvl 100 meq/L 95 - 109 03/08 Normal [facility] CHEMISTRY CO2 23 meq/L 24 - 32 03/08 LOW [facility] CHEMISTRY Total Protein 4.8 g/dL 6.4 - 8.4 03/08 LOW [facility] CHEMISTRY AST 10 unit/L 0 - 37 03/08 Normal [facility] CHEMISTRY Calcium Lvl 7.6 mg/dL 8.5 - 10.5 03/08 LOW [facility] CHEMISTRY Bili Total 0.3 mg/dL 0.2 - 1.3 03/08 Normal [facility] CHEMISTRY eGFR 88 03/08 NA 5Result Comment: The eGFR is calculated using the CKD-EPI formula. In most young, healthy individuals the eGFR will be > 90 mL/min/1.73m2. The eGFR declines with age. An eGFR of 60-89 may be normal in [facility] mL/min/1. some populations, particularly the elderly, for whom the CKD-EPI formula has not been extensively validated. Use of the eGFR is not recommended in the following populations: [address] Individuals with unstable creatinine concentrations, including [...] the clinical guidelines of the [place] [employer]. [facility] CHEMISTRY BUN 6 mg/dL 7 - 22 03/08 LOW [facility] CHEMISTRY Creatinine 0.8 mg/dL 0.5 - 1.4 03/08 Normal [facility] CHEMISTRY Sodium Lvl 135 meq/L 135 - 145 07 Normal [facility] CHEMISTRY Alk Phos 173 unit/L 39 - 136 07 HI [facility] CHEMISTRY ALT 16 unit/L 0 - 65 03/08 Normal [facility] CHEMISTRY Albumin Lvl 2.0 g/dL 3.5 - 5.0 03/08 LOW [facility] CHEMISTRY Lipase Lvl 54 unit/L 73 - 393 03/08 LOW [facility] CHEMISTRY Amylase Lvl 30 unit/L 25 - 115 03/08 Normal [facility] HEMATOLOGY Basophils # 0.1 K/CMM 0.0 - 0.2 03/08 Normal [facility] HEMATOLOGY Anisocyte 1+ None Seen 03/08 ABN [facility] *[facility]* Center (03/08/2013 03:01:00) HEMATOLOGY Microcyte 1+ None Seen 03/08 [facility] *ABN* Center (03/08/2013 03:01:00) HEMATOLOGY Eosinophils # 0.2 K/CMM 0.0 - 0.5 03/08 Normal [facility] HEMATOLOGY Monocytes # 0.8 K/CMM 0.0 - 0.8 03/08 Normal [facility] HEMATOLOGY Lymphocytes 34.2 % 20.0 - 07 Normal [facility] 40.0 [facility] HEMATOLOGY Segs 53.3 % 45.0 - 03/08 [facility] 75.0 [facility] HEMATOLOGY Lymphocytes # 3.0 K/CMM 1.0 - 5.5 03/08 Normal [facility] HEMATOLOGY Segs-Bands # 4.7 K/CMM 1.5 - 8.1 03/08 Normal [facility] HEMATOLOGY Basophils 0.9 % 0.0 - 1.0 07/ Normal [facility] HEMATOLOGY Eosinophils 2.6 % 0.0 - 4.0 07/ Normal [facility] HEMATOLOGY Monocytes 9.0 % 2.0 - 12.0 / Normal [facility] HEMATOLOGY Hgb 7.9 g/dL 12.0 - 07 LOW [facility] 16.0 [facility] HEMATOLOGY RBC 3.12 M/CMM 4.20 - 07 [facility] 5.40 /2013 [facility] HEMATOLOGY MPV 8.0 fL 7.4 - 10.4 07/ Normal [facility] [place] HEMATOLOGY Platelet 294 K/CMM 133 - 450 07/ Normal [facility] [place] HEMATOLOGY MCH 25.3 pg 27.0 - 07/ [facility] 31.0 /2012 [facility] [place] HEMATOLOGY MCV 79.7 fL 81.0 - 07/ [facility] 99.0 /2012 [facility] [place] HEMATOLOGY Hct 24.9 % 36.0 - 07/ [facility] 48.0 /2012 [facility] [place] HEMATOLOGY WBC 8.8 K/CMM 3.7 - 10.4 07/ Normal [facility] HEMATOLOGY RDW 21.4 % 11.5 - 07/03 [facility] 14.5 /2012 [facility] [place] HEMATOLOGY MCHC 31.8 g/dL 32.0 - 07/ [facility] 36.0 /2012 [facility] CHEMISTRY Troponin-I null 0.00 - 07 Normal [facility] 0.40 [facility] CHEMISTRY Total CK 26 unit/L 12 - 191 07 Normal [facility] CHEMISTRY A/G Ratio 0.6 0.7 - 1.6 07/ LOW [facility] CHEMISTRY Bili Total 0.6 mg/dL 0.2 - 1.3 07 Normal [facility] CHEMISTRY Bili Direct 0.3 mg/dL 0.0 - 0.3 07/ Normal [facility] CHEMISTRY Alk Phos 190 unit/L 39 - 136 07 [facility] CHEMISTRY Total Protein 5.2 g/dL 6.4 - 8.4 07 [facility] CHEMISTRY Globulin 3.2 g/dL 2.0 - 4.0 07/ Normal [facility] CHEMISTRY Bili Indirect 0.3 mg/dL 0.0 - 1.0 07/ Normal [facility] CHEMISTRY AST 11 unit/L 0 - 37 07/ Normal [facility] CHEMISTRY Albumin Lvl 2.0 g/dL 3.5 - 5.0 07/ LOW [facility] CHEMISTRY ALT 19 unit/L 0 - 65 07/ Normal [facility] CHEMISTRY Amylase Lvl 26 unit/L 25 - 115 07/ Normal [facility] CHEMISTRY Lipase Lvl 49 unit/L 73 - 393 07 LOW [facility] HEMATOLOGY MPV 8.3 fL 7.4 - 10.4 07 Normal [facility] HEMATOLOGY MCH 24.7 pg 27.0 - 07 [facility] 31.0 /2012 [facility] HEMATOLOGY MCHC 32.6 g/dL 32.0 - 03/07 Normal [facility] 36.0 /2012 [facility] HEMATOLOGY RDW 20.1 % 11.5 - 07 [facility] 14.5 /2012 [facility] HEMATOLOGY Platelet 362 K/CMM 133 - 450 07 Normal [facility] HEMATOLOGY MCV 75.7 fL 81.0 - 07 [facility] 99.0 /2012 [facility] HEMATOLOGY Hgb 8.8 g/dL 12.0 - 03/07 [facility] 16.0 [facility] HEMATOLOGY Hct 26.9 % 36.0 - 03/07 [facility] 48.0 /2012 [facility] HEMATOLOGY RBC 3.56 M/CMM 4.20 - 03/07 [facility] 5.40 /2012 [facility] HEMATOLOGY WBC 11.1 K/CMM 3.7 - 10.4 07 [facility] HEMATOLOGY Lymphocytes # 2.4 K/CMM 1.0 - 5.5 03/07 Normal [facility] HEMATOLOGY Hypochrom Slight None Seen 03/07 [facility] (03/07/2013 07:43:59) Center HEMATOLOGY Microcyte 2+ None Seen 03/07 [facility] *ABN* [place] (03/07/2013 07:43:59) HEMATOLOGY Anisocyte 1+ None Seen 03/07 [facility] *ABN* [place] (03/07/2013 07:43:59) HEMATOLOGY Basophils # 0.1 K/CMM 0.0 - 0.2 03/07 [facility] HEMATOLOGY Polychrom Slight None Seen 03/07 [facility] (03/07/2013 07:43:59) Center HEMATOLOGY Basophils 0.8 % 0.0 - 1.0 03/07 Normal [facility] HEMATOLOGY Eosinophils 1.3 % 0.0 - 4.0 03/07 [facility] HEMATOLOGY Segs-Bands # 7.6 K/CMM 1.5 - 8.1 03/07 Normal [facility] HEMATOLOGY Monocytes 8.1 % 2.0 - 12.0 03/07 Normal [facility] HEMATOLOGY Monocytes # 0.9 K/CMM 0.0 - 0.8 / HI [facility] HEMATOLOGY Eosinophils # 0.1 K/CMM 0.0 - 0.5 03/07 Normal [facility] HEMATOLOGY Target Cell Slight None Seen 03/07 ABN Medical *ABN* Center (03/07/2013 07:43:59) HEMATOLOGY Plt Morph Normal 03/07 Normal [facility] (03/07/2013 07:43:59) Center HEMATOLOGY Lymphocytes 22.0 % 20.0 - 07 [facility] 40.0 [facility] HEMATOLOGY Segs 67.8 % 45.0 - 07 Normal [facility] 75.0 [facility] CHEMISTRY Lactic Acid 1.7 mMol/L 0.5 - 2.2 03/07 Normal [facility] Lvl [facility] CHEMISTRY Total CK 21 unit/L 12 - 191 03/07 Normal [facility] CHEMISTRY Troponin-I null 0.00 - 07 Normal [facility] 0.40 /2012 [facility] CHEMISTRY eGFR 104 03/07 NA 6Result Comment: The eGFR is calculated using the CKD-EPI formula. In most young, healthy individuals the eGFR will be > 90 mL/min/1.73m2. The eGFR declines with age. An eGFR of 60-89 may be normal in [facility] mL/min/1.7 some populations, particularly the elderly, for whom the CKD-EPI formula has not been extensively validated. Use of the eGFR is not recommended in the following populations: [address] Individuals with unstable creatinine concentrations, including [...] 27 meq/L 24 - 32 07 Normal [facility] CHEMISTRY Potassium Lvl 3.6 meq/L 3.5 - 5.1 03/07 Normal [facility] CHEMISTRY Chloride Lvl 99 meq/L 95 - 109 03/07 Normal [facility] CHEMISTRY Sodium Lvl 134 meq/L 135 - 145 03/07 LOW [facility] CHEMISTRY BUN 5 mg/dL 7 - 22 03/07 LOW [facility] CHEMISTRY Creatinine 0.7 mg/dL 0.5 - 1.4 03/07 Normal [facility] Lvl [facility] CHEMISTRY Glucose Lvl 233 mg/dL 70 - 99 03/07 HI 9Interpretive Data: Adult reference range values reflect the clinical guidelines of the [place] [employer]. [facility] CHEMISTRY Calcium Lvl 7.7 mg/dL 8.5 - 10.5 03/07 LOW [facility] CHEMISTRY AGAP 11.6 meq/L 10.0 - 07 Normal [facility] 20.0 [facility] CHEMISTRY Temp Art 37.0 Abby 03/07 NA [facility] CHEMISTRY pH Art 7.41 7.35 - 03/07 Normal [facility] 7.45 [facility] CHEMISTRY pCO2 Art 34 mm[Hg] 35 - 45 03/07 LOW [facility] CHEMISTRY O2 Sat Art 97.5 % 95.0 - 03/07 Normal [facility] 100.0 [facility] CHEMISTRY HCO3 Art 22 mMol/L 22 - 26 03/07 Normal [facility] CHEMISTRY BE Art -2 mMol/L -2-2 - 2 03/07 Normal [facility] CHEMISTRY pO2 Art 96 mm[Hg] 80 - 100 03/07 Normal [facility] Chest 1view Chest 1view EXAM: CHEST 1 VIEW 03/07 - - Medical This report was dictated by a Plow Mechanic/Fellow. I have personally reviewed the images as [...] CHEMISTRY Temp Mark 37.0 Abby 07 NA [facility] CHEMISTRY pO2 Mark 20 mm[Hg] 20 - 49 03/07 Normal [facility] CHEMISTRY HCO3 Mark 21 mMol/L 22 - 26 03/07 LOW [facility] CHEMISTRY BE Mark -2 mMol/L -2-2 - 2 03/07 Normal [facility] CHEMISTRY O2 Sat Mark 36.2 % 40.0 - 03/07 [facility] 70.0 [facility] CHEMISTRY pCO2 Mark 29 mm[Hg] 38 - 52 03/07 LOW [facility] CHEMISTRY pH Mark 7.46 7.28 - 03/07 [facility] 7.42 [facility] CHEMISTRY Lactic Acid 2.6 mMol/L 0.5 - 2.2 03/07 HI [facility] Lvl [facility] CHEMISTRY Phosphorus 3.1 mg/dL 2.5 - 4.5 03/07 Normal [facility] CHEMISTRY Magnesium Lvl 1.6 mg/dL 1.8 - 2.4 03/07 LOW [facility] CHEMISTRY Total CK 31 unit/L 12 - 191 03/07 Normal [facility] CHEMISTRY Troponin-I null 0.00 - 03/07 Normal [facility] 0.40 [facility] CHEMISTRY U Preg Negative Negative 03/06 Normal [facility] (03/06/2013 18:25:00) Center URINALYSIS UA Amorph Occasional /HPF None Seen 03/06 [facility] Medical *ABN* Center (03/06/2013 18:25:00) URINALYSIS UA Mucus Few /LPF None Seen 03/06 Normal [facility] (03/06/2013 18:25:00) Center URINALYSIS Micro? Performed 03/06 Normal [facility] (03/06/2013 18:25:00) Center URINALYSIS UA Sq Epi Moderate /LPF Few 03/06 [facility] Medical *ABN* [place] (03/06/2013 18:25:00) URINALYSIS UA WBC 0-2 /HPF None Seen 03/06 Normal [facility] (03/06/2013 18:25:00) Center URINALYSIS UA RBC None Seen 0 - 2 03/06 Normal [facility] (03/06/2013 18:25:00) Center URINALYSIS UA Bacteria Few /HPF None Seen 03/06 Normal [facility] (03/06/2013 18:25:00) Center URINALYSIS UA Bili Negative Negative 03/06 NA Medical *NA* [place] (03/06/2013 18:25:00) URINALYSIS UA 0.2 EU/dL 0.1 - 1.0 03/06 Normal [facility] Urobilinogen /2012 [facility] URINALYSIS UA Nitrite Negative Negative 03/06 Normal [facility] (03/06/2013 18:25:00) [place] URINALYSIS UA Leuk Est Trace Negative 03/06 [facility] *ABN* [place] (03/06/2013 18:25:00) URINALYSIS UA Blood Negative Negative 03/06 Normal [facility] (03/06/2013 18:25:00) Center URINALYSIS UA Ketones 40 mg/dL Negative 03/06 [facility] Medical *ABN* [place] (03/06/2013 18:25:00) URINALYSIS UA Turbidity Clear Clear 03/06 Normal [facility] (03/06/2013 18:25:00) [place] URINALYSIS UA Color Yellow Yellow 03/06 NA [facility] *NA* [place] (03/06/2013 18:25:00) URINALYSIS UA Spec Grav 1.015 <=1.030 03/06 Normal [facility] URINALYSIS UA Protein Negative Negative 03/06 Normal [facility] (03/06/2013 18:25:00) Center URINALYSIS UA Glucose 250 mg/dL Negative 03/06 [facility] *ABN* [place] (03/06/2013 18:25:00) URINALYSIS UA pH 7.5 5.0 - 8.0 03/06 Normal [facility] Chest 2 Chest 2 views EXAM: CHEST 2 VIEWS 03/06 - [facility] - Medical This report was dictated by a Plow Mechanic/Fellow. I have personally reviewed the images as [...] left pleural effusion. BEDSIDE Comment1 Notify 12/07 [facility] Fei ROACH RN/ [facility] TESTING Center BEDSIDE Gluc POC 64 mg/dL 70 - 99 12/07 LOW 3Interpretive [facility] Upper Reportable Limit: 200 mg/dL. BEDSIDE Gluc POC 50 mg/dL 70 - 99 / LOW 4Interpretive [facility] GLUCOSE [facility] Data: [facility] Upper Reportable Limit: 200 mg/dL. BEDSIDE Comment1 Notify 12/07 [facility] Fei ROACH RN/ /2012 [facility] BEDSIDE Gluc POC 45 mg/dL 70 - 99 12/07 LOW 5Interpretive [facility] Upper Reportable Limit: 200 mg/dL. BEDSIDE Comment1 Notify 12/07 [facility] Fei ROACH RN/ /2012 [facility] CHEMISTRY eGFR 109 12/07 NA 7Result Comment: The eGFR is calculated using the CKD-EPI formula. In most young, healthy individuals the eGFR will be > 90 mL/min/1.73m2. The eGFR declines with age. An eGFR of 60-89 may be normal in [facility] mL/min/1.7 /2012 some populations, particularly the elderly, for whom the CKD-EPI formula has not been extensively validated. Use of the eGFR is not recommended in the following populations: [address] Center Individuals with unstable creatinine concentrations, [...] 8.3 mg/dL 8.5 - 10.5 12/07 LOW [facility] CHEMISTRY AGAP 12.8 meq/L 10.0 - 12/07 Normal [facility] 20.0 [facility] CHEMISTRY BUN 2 mg/dL 7 - 22 12/07 LOW [facility] CHEMISTRY Glucose Lvl 95 mg/dL 70 - 99 12/07 Normal 10Interpretive Data: Adult reference range values reflect the clinical guidelines of the [place] [employer]. [facility] Center CHEMISTRY Potassium Lvl 3.8 meq/L 3.5 - 5.1 12/07 Normal [facility] CHEMISTRY Creatinine 0.6 mg/dL 0.5 - 1.4 12/07 Normal [facility] CHEMISTRY Sodium Lvl 140 meq/L 135 - 145 12/07 Normal [facility] CHEMISTRY Chloride Lvl 105 meq/L 95 - 109 12/07 Normal [facility] CHEMISTRY CO2 26 meq/L 24 - 32 12/07 Normal [facility] BEDSIDE Comment2 Verify 12/06 NA [facility] GLUCOSE Lab [facility] BEDSIDE Comment2 Verify 12/06 NA [facility] GLUCOSE /Lab [facility] TESTING [place] CHEMISTRY AGAP 13.5 meq/L 10.0 - 12/06 Normal [facility] .0 [facility] CHEMISTRY Calcium Lvl 8.1 mg/dL 8.5 - 10.5 12/06 LOW [facility] CHEMISTRY CO2 28 meq/L 24 - 32 12/06 Normal [facility] CHEMISTRY Chloride Lvl 101 meq/L 95 - 109 12/06 Normal [facility] CHEMISTRY eGFR 104 04 NA 8Result Comment: The eGFR is calculated using the CKD-EPI formula. In most young, healthy individuals the eGFR will be > 90 mL/min/1.73m2. The eGFR declines with age. An eGFR of 60-89 may be normal in [facility] mL/min/1.7 some populations, particularly the elderly, for whom the CKD-EPI formula has not been extensively validated. Use of the eGFR is not recommended in the following populations: [address] Individuals with unstable creatinine concentrations, including [...] reference range values reflect the clinical guidelines [facility] of the [place] [employer]. [facility] CHEMISTRY BUN 2 mg/dL 7 - 22 04 LOW [facility]2012 [facility] CHEMISTRY Creatinine 0.7 mg/dL 0.5 - 1.4 / Normal [facility] CHEMISTRY Sodium Lvl 139 meq/L 135 - 145 / Normal [facility] CHEMISTRY Potassium Lvl 3.5 meq/L 3.5 - 5.1 12/06 Normal [facility] CHEMISTRY Lipase Lvl 62 unit/L 73 - 393 / LOW [facility] CHEMISTRY Alk Phos 92 unit/L 39 - 136 04/ Normal [facility]2012 [facility] CHEMISTRY Albumin Lvl 2.7 g/dL 3.5 - 5.0 / [facility]2012 [facility] CHEMISTRY Total Protein 5.8 g/dL 6.4 - 8.4 / LOW [facility] CHEMISTRY Globulin 3.1 g/dL 2.0 - 4.0 / Normal [facility] CHEMISTRY A/G Ratio 0.9 0.7 - 1.6 / Normal [facility] CHEMISTRY AST 74 unit/L 0 - 37 04/ HI [facility] CHEMISTRY ALT 50 unit/L 0 - 65 04/ Normal [facility] CHEMISTRY Bili Indirect 0.1 mg/dL 0.0 - 1.0 12/06 Normal [facility] CHEMISTRY Bili Total 0.2 mg/dL 0.2 - 1.3 12/06 Normal [facility] CHEMISTRY Bili Direct 0.1 mg/dL 0.0 - 0.3 12/06 Normal [facility] CHEMISTRY eGFR 109 12/05 NA 9Result Comment: The eGFR is calculated using the CKD-EPI formula. In most young, healthy individuals the eGFR will be > 90 mL/min/1.73m2. The eGFR declines with age. An eGFR of 60-89 may be normal in [facility] mL/min/1.7 some populations, particularly the elderly, for whom the CKD-EPI formula has not been extensively validated. Use of the eGFR is not recommended in the following populations: Medical [facility] Individuals with unstable creatinine concentrations, including [...] the clinical guidelines of the [place] [employer]. [facility] CHEMISTRY Creatinine 0.6 mg/dL 0.5 - 1.4 12/05 Normal [facility] Lvl [facility] CHEMISTRY BUN 1 mg/dL 7 - 22 12/05 LOW [facility] CHEMISTRY Chloride Lvl 102 meq/L 95 - 109 12/05 Normal [facility] CHEMISTRY Potassium Lvl 3.3 meq/L 3.5 - 5.1 12/05 LOW [facility] CHEMISTRY Sodium Lvl 140 meq/L 135 - 145 12/05 Normal [facility] CHEMISTRY Calcium Lvl 7.9 mg/dL 8.5 - 10.5 12/05 LOW [facility] CHEMISTRY CO2 29 meq/L 24 - 32 12/05 Normal [facility] CHEMISTRY AGAP 12.3 meq/L 10.0 - 12/05 Normal [facility] 20.0 [facility] CHEMISTRY Ca Norm mgdL 4.84 mg/dL 4.65 - 12/03 Normal [facility] 5. [facility] CHEMISTRY Ca Ion mgdL 4.84 mg/dL 4.65 - 12/03 Normal [facility] 5. [facility] CHEMISTRY Ca Ion 1.21 1.16 - 12/03 Normal [facility] mMol/L 1.30 [facility] CHEMISTRY Ca Norm 1.21 1.16 - 12/03 Normal [facility] mMol/L 1. [facility] CHEMISTRY Magnesium Lvl 1.8 mg/dL 1.8 - 2.4 12/03 Normal [facility] CHEMISTRY Phosphorus 3.4 mg/dL 2.5 - 4.5 12/03 Normal [facility] HEMATOLOGY Lymphocytes # 1.8 K/CMM 1.0 - 5.5 12/03 Normal [facility] HEMATOLOGY Lymphocytes 23.6 % 20.0 - 12/03 Normal [place] 40.0 [facility] HEMATOLOGY Eosinophils 2.9 % 0.0 - 4.0 12/03 Normal [facility] HEMATOLOGY Monocytes 9.1 % 2.0 - 12.0 12/03 Normal [facility] HEMATOLOGY Basophils 0.6 % 0.0 - 1.0 12/03 Normal [facility] HEMATOLOGY Segs-Bands # 5.0 K/CMM 1.5 - 8.1 12/03 Normal [facility] HEMATOLOGY Segs 63.8 % 45.0 - 12/03 Normal [place] 75.0 [facility] HEMATOLOGY Monocytes # 0.7 K/CMM 0.0 - 0.8 12/03 Normal [facility] HEMATOLOGY Eosinophils # 0.2 K/CMM 0.0 - 0.5 12/03 Normal [facility] HEMATOLOGY Microcyte 1+ None Seen 12/03 ABN [facility] *ABN* Center (12/03/2012 01:02:00) HEMATOLOGY WBC 7.8 K/CMM 3.7 - 10.4 12/03 Normal [facility] HEMATOLOGY Hct 27.8 % 36.0 - 12/03 LOW [place] 48.0 [facility] HEMATOLOGY MPV 8.5 fL 7.4 - 10.4 12/03 Normal [facility] HEMATOLOGY MCHC 32.4 g/dL 32.0 - 12/03 Normal [facility] 36.0 [facility] HEMATOLOGY RDW 18.9 % 11.5 - 12/03 HI [place] 14.5 [facility] HEMATOLOGY MCH 24.6 pg 27.0 - 12/03 LOW [place] 31.0 [facility] HEMATOLOGY RBC 3.66 M/CMM 4.20 - 12/03 LOW [place] 5.40 /2012 Medical Center HEMATOLOGY MCV 75.9 fL 81.0 - 12/03 LOW [facility] 99.0 [facility] HEMATOLOGY Platelet 224 K/CMM 133 - 450 12/03 Normal [facility] HEMATOLOGY Hgb 9.0 g/dL 12.0 - 12/03 LOW [facility] 16.0 [facility] Microbiolog Culture: 12/02 [facility] y Blood /2012 [facility] Microbiolog Culture: MRSA 12/02 [facility] y /2012 Medical Center Microbiolog Culture: 12/02 [facility] y Resistant Medical Acinetobacter Center Screen CHEMISTRY Ketone 1.42 <=0.27 12/02 HI [facility] Quantitative mmol/L /2012 [facility] URINALYSIS UA WBC 1 /HPF 0 - 5 12/02 Normal [facility] URINALYSIS UA RBC null 0 - 2 12/02 Normal [facility] URINALYSIS UA <=1.0 0.1 - 1.0 12/02 NA [facility] Urobilinogen mg/dL Medical
*NA*< Center br/>(12/02 04:02:55) <sup> </sup> URINALYSIS UA Sq Epi Moderate /LPF Few 12/02 ABN [facility] *ABN* Center (12/02/2012 04:02:55) URINALYSIS UA Leuk Est Negative Negative 12/02 Normal [facility] (12/02/2012 04:02:55) Center URINALYSIS UA Nitrite Negative Negative 12/02 Normal [facility] (12/02/2012 04:02:55) Center URINALYSIS UA Mucus Few /LPF None Seen 12/02 NA Medical *NA* Center (12/02/2012 04:02:55) URINALYSIS UA Ketones 40 mg/dL Negative 12/02 ABN [facility] *ABN* Center (12/02/2012 04:02:55) URINALYSIS UA Blood Negative Negative 12/02 Normal [facility] (12/02/2012 04:02:55) Center URINALYSIS UA Glucose >=1000 mg/dL Negative 12/02 ABN [facility] *ABN* Center (12/02/2012 04:02:55) URINALYSIS UA Bili Negative Negative 12/02 NA Medical *NA* Center (12/02/2012 04:02:55) URINALYSIS UA Protein Negative mg/dL Negative 12/02 Normal [facility] (12/02/2012 04:02:55) Center URINALYSIS UA Turbidity Clear Clear 12/02 Normal [facility] (12/02/2012 04:02:55) Center URINALYSIS UA pH 5.5 5.0 - 8.0 12/02 Normal [facility] URINALYSIS UA Spec Grav 1.010 <=1.030 12/02 Normal [facility] URINALYSIS UA Color Yellow Yellow 12/02 NA [facility] *NA* Center (12/02/2012 04:02:55) HEMATOLOGY MPV 8.9 fL 7.4 - 10.4 12/02 Normal [facility] HEMATOLOGY Hct 27.9 % 36.0 - 12/02 [facility] 48.0 [facility] HEMATOLOGY MCV 76.1 fL 81.0 - 12/02 [facility] 99.0 [facility] HEMATOLOGY MCH 25.2 pg 27.0 - 12/02 LOW [facility] 31.0 [facility] HEMATOLOGY MCHC 33.2 g/dL 32.0 - 12/02 Normal [facility] 36.0 [facility] HEMATOLOGY RDW 19.3 % 11.5 - 12/02 HI [facility] 14.5 [facility] HEMATOLOGY Platelet 224 K/CMM 133 - 450 12/02 Normal [facility] HEMATOLOGY WBC 8.6 K/CMM 3.7 - 10.4 12/02 Normal [facility] HEMATOLOGY Hgb 9.3 g/dL 12.0 - 12/02 [facility] 16.0 [facility] HEMATOLOGY RBC 3.67 M/CMM 4.20 - 12/02 [facility] 5.40 /2012 [facility] HEMATOLOGY Segs-Bands # 6.4 K/CMM 1.5 - 8.1 12/02 Normal [facility] HEMATOLOGY Lymphocytes # 1.5 K/CMM 1.0 - 5.5 12/02 Normal [facility] HEMATOLOGY Eosinophils 0.6 % 0.0 - 4.0 12/02 Normal [facility] HEMATOLOGY Basophils 0.7 % 0.0 - 1.0 12/02 Normal [facility] HEMATOLOGY Lymphocytes 17.3 % 20.0 - 12/02 LOW [facility] 40.0 [facility] HEMATOLOGY Monocytes # 0.7 K/CMM 0.0 - 0.8 12/02 Normal [facility] HEMATOLOGY Microcyte 1+ None Seen 12/02 ABN [facility] *ABN* Center (12/02/2012 04:02:51) HEMATOLOGY Eosinophils # 0.1 K/CMM 0.0 - 0.5 12/02 Normal [facility] HEMATOLOGY Basophils # 0.1 K/CMM 0.0 - 0.2 12/02 Normal [facility] HEMATOLOGY Segs 73.8 % 45.0 - 12/02 Normal [facility] 75.0 [facility] HEMATOLOGY Monocytes 7.6 % 2.0 - 12.0 12/02 Normal [facility] Microbiolog Culture: 12/02 [facility] y [facility] CHEMISTRY POC A Glu 305 mg/dL 70 - 99 12/02 HI [facility] CHEMISTRY POC A Hct 29.0 % 36.0 - 12/02 LOW [facility] 48.0 [facility] CHEMISTRY POC A O2 Sat 97.0 % 95.0 - 12/02 Normal [facility] 100.0 [facility] CHEMISTRY POC A K 3.4 meq/L 3.5 - 5.1 12/02 LOW [facility] CHEMISTRY POC A Na 130 meq/L 135 - 145 12/02 LOW [facility] CHEMISTRY POC A PCO2 38 mm[Hg] 35 - 45 12/02 Normal [facility] CHEMISTRY POC A BE 2 mMol/L -2-2 - 2 12/02 Normal [facility] CHEMISTRY POC A HCO3 26 mMol/L 22 - 26 12/02 Normal [facility] CHEMISTRY POC A Source ART 12/02 NA [facility] CHEMISTRY POC A PO2 89 mm[Hg] 80 - 100 12/02 Normal [facility] CHEMISTRY POC A pH 7.44 7.35 - 12/02 Normal [facility] 7.45 [facility] CHEMISTRY POC A Temp 37.0 Abby 12/02 NA [facility] CHEMISTRY POC A Ca Ion 1.12 1.16 - 12/02 LOW [facility] mMol/L 1.30 [facility] CHEMISTRY POC A LA 0.8 mMol/L 0.5 - 2.2 12/02 Normal [facility] CHEMISTRY Magnesium Lvl 1.9 mg/dL 1.8 - 2.4 12/02 Normal [facility] CHEMISTRY Phosphorus 2.7 mg/dL 2.5 - 4.5 12/02 Normal [facility] CHEMISTRY Ca Norm mgdL 4.36 mg/dL 4.65 - 12/02 LOW [facility] . [facility] Center CHEMISTRY Ca Ion 1.14 1.16 - 12/02 LOW [place] mMol/L 1. [facility] CHEMISTRY Ca Ion mgdL 4.56 mg/dL 4.65 - 12/02 LOW [facility] . [facility] CHEMISTRY Ca Norm 1.09 1.16 - 12/02 LOW [facility] mMol/L 1. [facility] HEMATOLOGY Platelet 223 K/CMM 133 - 450 12/02 Normal [facility] HEMATOLOGY MPV 9.2 fL 7.4 - 10.4 12/02 Normal [facility] HEMATOLOGY MCHC 32.3 g/dL 32.0 - 12/02 Normal [facility] 36.0 [facility] HEMATOLOGY RDW 19.2 % 11.5 - 12/02 HI [facility] 14.5 /2012 [facility] HEMATOLOGY WBC 7.6 K/CMM 3.7 - 10.4 12/02 Normal [facility] HEMATOLOGY Hgb 9.2 g/dL 12.0 - 12/02 [facility] 16.0 [facility] HEMATOLOGY Hct 28.6 % 36.0 - 12/02 [facility] 48.0 /2012 [facility] HEMATOLOGY MCV 76.3 fL 81.0 - 12/02 [facility] 99.0 /2012 [facility] HEMATOLOGY MCH 24.6 pg 27.0 - 12/02 LOW [facility] 31.0 /2012 [facility] HEMATOLOGY RBC 3.74 M/CMM 4.20 - 12/02 [facility] 5.40 /2012 [facility] HEMATOLOGY Microcyte 1+ None Seen 12/02 ABN Medical *ABN* Center (12/02/2012 03:00:00) HEMATOLOGY Basophils # 0.1 K/CMM 0.0 - 0.2 12/02 Normal [facility] HEMATOLOGY Monocytes # 0.6 K/CMM 0.0 - 0.8 12/02 Normal [facility] HEMATOLOGY Lymphocytes # 1.9 K/CMM 1.0 - 5.5 12/02 Normal [facility] HEMATOLOGY Segs-Bands # 5.0 K/CMM 1.5 - 8.1 12/02 Normal [facility] HEMATOLOGY Segs 65.5 % 45.0 - 12/02 Normal [facility] 75.0 /2012 [facility] HEMATOLOGY Lymphocytes 25.0 % 20.0 - 12/02 Normal [facility] 40.0 [facility] HEMATOLOGY Monocytes 8.4 % 2.0 - 12.0 12/02 Normal [facility] HEMATOLOGY Eosinophils 0.4 % 0.0 - 4.0 12/02 Normal [facility] HEMATOLOGY Basophils 0.7 % 0.0 - 1.0 12/02 Normal [facility] CHEMISTRY Magnesium Lvl 2.0 mg/dL 1.8 - 2.4 12/01 Normal [facility] CHEMISTRY Ca Norm mgdL 4.48 mg/dL 4.65 - 12/01 LOW [facility] 5. [facility] CHEMISTRY Ca Ion mgdL 4.68 mg/dL 4.65 - 12/01 Normal [facility] 5. [facility] CHEMISTRY Ca Ion 1.17 1.16 - 12/01 Normal [facility] mMol/L 1. [facility] CHEMISTRY Ca Norm 1.12 1.16 - 12/01 LOW [facility] mMol/L 1. [facility] CHEMISTRY Phosphorus 2.7 mg/dL 2.5 - 4.5 12/01 Normal [facility] URINALYSIS UA <=1.0 0.1 - 1.0 11/30 NA [facility] Urobilinogen mg/dL /2012 Medical
*NA*< Center br/>(11/30 17:41:33) <sup> </sup> URINALYSIS UA Mucus Few /LPF None Seen 11/30 NA Medical *NA* Center (11/30/2012 17:41:33) URINALYSIS UA WBC null 0 - 5 11/30 Normal [facility] URINALYSIS UA Sq Epi Moderate /LPF Few 11/30 ABN Medical *ABN* Center (11/30/2012 17:41:33) URINALYSIS UA Protein Negative mg/dL Negative 11/30 Normal Medical (11/30/2012 17:41:33) Center URINALYSIS UA pH 5.0 5.0 - 8.0 11/30 Normal [facility] Center URINALYSIS UA Spec Grav 1.004 <=1.030 11/30 Normal [facility] Center URINALYSIS UA Turbidity Clear Clear 11/30 Normal [facility] (11/30/2012 17:41:33) Center URINALYSIS UA Color Light Yellow Yellow 11/30 NA Medical *NA* [place] (11/30/2012 17:41:33) URINALYSIS UA Leuk Est Negative Negative 11/30 Normal [facility] (11/30/2012 17:41:33) Center URINALYSIS UA Nitrite Negative Negative 11/30 Normal [facility] (11/30/2012 17:41:33) Center URINALYSIS UA Blood Negative Negative 11/30 Normal [facility] (11/30/2012 17:41:33) Center URINALYSIS UA Bili Negative Negative 11/30 NA Medical *NA* [place] (11/30/2012 17:41:33) URINALYSIS UA Ketones 10 mg/dL Negative 11/30 ABN [facility] *ABN* [place] (11/30/2012 17:41:33) URINALYSIS UA Glucose Negative mg/dL Negative 11/30 NA [facility] *NA* [place] (11/30/2012 17:41:33) CHEMISTRY Ketone 1.65 <=0.27 11/30 HI [facility] Quantitative mmol/L /2012 [facility] HEMATOLOGY PT 14.1 s 12.0 - 11/30 Normal [facility] 14.7 [facility] Center HEMATOLOGY PTT 28.1 s 22.9 - 11/30 Normal 18Interpretiv [facility] 35.8 /2013 e Data: [facility] Heparin Center Therapeutic Range: 57 - 92 Seconds HEMATOLOGY INR 1.07 0.85 - 11/30 Normal 16Interpretive Data: RECOMMENDED RANGES FOR PROTIME INR: [facility] . 2.0-3.0 for most medical and surgical thromboembolic states. Medical 2.5-3.5 for artificial heart valves and recurrent embolism. Center INR SHOULD BE USED ONLY FOR PATIENTS ON STABLE ANTICOAGULANT THERAPY. CHEMISTRY U Potassium 31.2 meq/L 11/30 NA 14Interpretiv e Data: No Medical established Center reference ranges. CHEMISTRY U Sodium 87 meq/L 11/30 NA 13Interpretiv e Data: No [facility] established Center reference ranges. CHEMISTRY U Chloride 134 meq/L 11/30 NA [facility] CHEMISTRY Bili Total 0.4 mg/dL 0.2 - 1.3 11/30 Normal [facility] CHEMISTRY Total Protein 6.3 g/dL 6.4 - 8.4 11/30 LOW [facility] CHEMISTRY Albumin Lvl 2.9 g/dL 3.5 - 5.0 11/30 LOW [facility] CHEMISTRY Alk Phos 127 unit/L 39 - 136 11/30 Normal [facility] CHEMISTRY Bili Direct 0.2 mg/dL 0.0 - 0.3 11/30 Normal [facility] CHEMISTRY AST 22 unit/L 0 - 37 11/30 Normal [facility] CHEMISTRY ALT 20 unit/L 0 - 65 11/30 Normal [facility] CHEMISTRY A/G Ratio 0.9 0.7 - 1.6 11/30 Normal [facility] CHEMISTRY Bili Indirect 0.2 mg/dL 0.0 - 1.0 11/30 Normal [facility] CHEMISTRY Globulin 3.4 g/dL 2.0 - 4.0 11/30 Normal [facility] HEMATOLOGY Basophils # 0.1 K/CMM 0.0 - 0.2 11/30 Normal [facility] HEMATOLOGY PT 13.9 s 12.0 - 11/30 Normal [facility] 14.7 [facility] HEMATOLOGY PTT 26.5 s 22.9 - 11/30 Normal 19Interpretiv [facility] 35.8 e Data: [facility] Heparin Center Therapeutic Range: 57 - 92 Seconds HEMATOLOGY INR 1.05 0.85 - 11/30 Normal 17Interpretive Data: RECOMMENDED RANGES FOR PROTIME INR: [facility] . 2.0-3.0 for most medical and surgical thromboembolic states. Medical 2.5-3.5 for artificial heart valves and recurrent embolism. Center INR SHOULD BE USED ONLY FOR PATIENTS ON STABLE ANTICOAGULANT THERAPY. CHEMISTRY POC V Temp 37.0 Abby 11/29 NA [facility] CHEMISTRY POC V Ion Ca [...] Troponin-I 0.05 ng/mL 0.00 - 11/29 Normal [facility] 0.40 Medical Center CHEMISTRY Total CK 46 unit/L 12 - 191 11/29 Normal Medical Center CHEMISTRY Troponin-T null 0.000 - 11/29 Normal [facility] 0.100 Medical Center CHEMISTRY Ketone 4.63 <=0.27 [...] CHEMISTRY POC A Source ART 11/29 NA [facility] CHEMISTRY POC A O2 Sat 98.0 % 95.0 - 11/29 Normal [facility] 100.0 [facility] CHEMISTRY POC A BE -11 mMol/L -2-2 - 2 11/29 LOW [facility] CHEMISTRY POC A HCO3 14 mMol/L 22 - 11/29 LOW [facility] CHEMISTRY POC A PCO2 26 mm[Hg] 35 - 45 11/29 CRIT [facility] CHEMISTRY POC A PO2 115 mm[Hg] 80 - 100 11/29 HI [facility] CHEMISTRY POC A pH 7.33 7.35 - 11/29 [facility] 7.45 [facility] BACTERIAL - MRSA by PCR Positive 1, 2 11/29 ABN 2Interpretive Data: Interpretive Data: The [employer] MRSA assay is a qualitative test for the direct detection of nasal colonization with methicillin-resistant Staphylococcus aureus (MRSA) to aid [facility] in the prevention and control of MRSA [...] the Molecular Diagnostic Laboratory within the [facility]. The Molecular Diagnostic Labor atory is authorized under the Clinical Laboratory Improvement Amendment of 1988 (CLIA-88) to perform high complexity testing. CHEMISTRY Temp Art 37.0 Abby 11/29 NA [facility] CHEMISTRY O2 Sat Art 96.6 % 95.0 - 11/29 Normal [facility] 100.0 [facility] CHEMISTRY pO2 Art 96 mm[Hg] 80 - 100 11/29 Normal [facility] CHEMISTRY pCO2 Art 25 mm[Hg] 35 - 45 11/29 CRIT 15Result Comment: Medical Critical Center Result(s) called to jose rodriguez at _11/29/2012 12:25:56 CDT bykak_. Read back OK. CHEMISTRY BE Art -12 mMol/L -2-2 - 2 11/29 LOW [facility] CHEMISTRY HCO3 Art 12 mMol/L - 11/29 LOW [facility] CHEMISTRY pH Art 7.30 7.35 - 11/29 LOW [facility] 7.45 [facility] CHEMISTRY A/G Ratio 0.8 0.7 - 1.6 11/29 Normal [facility] CHEMISTRY Globulin 4.0 g/dL 2.0 - 4.0 11/29 Normal [facility] CHEMISTRY AST 17 unit/L 0 - 37 11/29 Normal [facility] CHEMISTRY Bili Total 0.8 mg/dL 0.2 - 1.3 11/29 Normal [facility] CHEMISTRY B/C Ratio 14 - 11/29 Normal [facility] CHEMISTRY Total Protein 7.4 g/dL 6.4 - 8.4 11/29 Normal [facility] CHEMISTRY ALT 22 unit/L 0 - 65 11/29 Normal [facility] CHEMISTRY Albumin Lvl 3.4 g/dL 3.5 - 5.0 11/29 LOW [facility] CHEMISTRY Alk Phos 126 unit/L 39 - 136 11/29 Normal [facility] CHEMISTRY Troponin-I null 0.00 - 11/29 Normal [facility] 0.40 [facility] CHEMISTRY Lipase Lvl 70 unit/L 73 - 393 11/29 LOW [facility] CHEMISTRY B/C Ratio 10 6 - 11/29 Normal [facility] HEMATOLOGY Hypochrom Slight None Seen 11/29 Normal [facility] (11/28/2012 21:00:20) Center HEMATOLOGY Polychrom Slight None Seen 11/29 Normal [facility] (11/28/2012 21:00:20) Center HEMATOLOGY Anisocyte 1+ None Seen 11/29 ABN [facility] *ABN* Center (11/28/2012 21:00:20) HEMATOLOGY Large Plt Slight None Seen 11/29 ABN [facility] *ABN* Center (11/28/2012 21:00:20) HEMATOLOGY Eosinophils # 0.2 K/CMM 0.0 - 0.5 11/29 Normal [facility] CHEMISTRY U Preg Negative Negative 11/29 Normal [facility] (11/28/2012 20:55:00) Center URINALYSIS UA Blood Negative Negative 11/29 Normal [facility] (11/28/2012 20:55:00) [place] URINALYSIS UA Bili Small 6 Negative 11/29 ABN 6Result Comment: Interpret positive bilirubin results with caution. Confirmatory testing not possible due to the unavailability of reagent. Correlation with Medical *ABN* serum chemistry results recommended. [place] (11/28/2012 20:55:00) URINALYSIS UA Protein Negative Negative 11/29 Normal [facility] (11/28/2012 20:55:00) [place] URINALYSIS Micro? Not Indicated 11/29 Normal [facility] (11/28/2012 20:55:00) [place] URINALYSIS UA Glucose Negative Negative 11/29 Normal [facility] (11/28/2012 20:55:00) [place] URINALYSIS UA Ketones 40 mg/dL Negative 11/29 ABN Medical *ABN* [place] (11/28/2012 20:55:00) URINALYSIS UA Leuk Est Negative Negative 11/29 Normal [facility] (11/28/2012 20:55:00) [place] URINALYSIS UA 0.2 EU/dL 0.1 - 1.0 11/29 Normal [facility] Urobilinogen /2012 [facility] URINALYSIS UA Nitrite Negative Negative 11/29 Normal [facility] (11/28/2012 20:55:00) [place] URINALYSIS UA Spec Grav 1.010 <=1.030 11/29 Normal [facility] URINALYSIS UA pH 6.0 5.0 - 8.0 11/29 Normal [facility] URINALYSIS UA Color Yellow Yellow 11/29 NA Medical *NA* [place] (11/28/2012 20:55:00) URINALYSIS UA Turbidity Clear Clear 11/29 Normal Medical (11/28/2012 20:55:00) Center BEDSIDE Comment1 Notify 11/17 NA [facility] GLUCOSE RN/ /2012 Medical TESTING Center BEDSIDE Gluc POC 219 mg/dL 70 - 99 11/17 HI 1Interpretive [facility] GLUCOSE Lifmon Data: Medical TESTING Center Upper Reportable Limit: 200 mg/dL. BEDSIDE Gluc POC 255 mg/dL 70 - 99 11/17 HI 2Interpretive [facility] GLUCOSE Lifmon Data: Medical TESTING Center Upper Reportable Limit: 200 mg/dL. BEDSIDE Comment1 Notify 11/17 NA [facility] GLUCOSE RN/MD /2012 [facility] Center CHEMISTRY Troponin-T null 0.000 - 11/17 Normal [facility] 0.100 [facility] CHEMISTRY Troponin-I null 0.00 - 11/17 Normal [facility] 0.40 [facility] CHEMISTRY Total CK 52 unit/L 12 - 191 11/17 Normal [facility] CHEMISTRY eGFR 109 11/17 NA 4Result Comment: The eGFR is calculated using the CKD-EPI formula. In most young, healthy individuals the eGFR will be > 90 mL/min/1.73m2. The eGFR declines with age. An eGFR of 60-89 may be normal in [facility] mL/min/1.7 some populations, particularly the elderly, for whom the CKD-EPI formula has not been extensively validated. Use of the eGFR is not recommended in the following populations: [address] Individuals with unstable creatinine concentrations, including [...] 7.7 mg/dL 8.5 - 10.5 11/17 LOW [facility] CHEMISTRY AGAP 16.2 meq/L 10.0 - 11/17 Normal [facility] 20.0 [facility] CHEMISTRY Chloride Lvl 100 meq/L 95 - 109 11/17 Normal [facility] CHEMISTRY Potassium Lvl 4.2 meq/L 3.5 - 5.1 11/17 Normal [facility] CHEMISTRY Sodium Lvl 134 meq/L 135 - 145 11/17 LOW [facility] CHEMISTRY CO2 22 meq/L 24 - 32 11/17 [facility] CHEMISTRY Creatinine 0.6 mg/dL 0.5 - 1.4 11/17 Normal [facility] /2012 [facility] CHEMISTRY BUN 4 mg/dL 7 - 22 11/17 [facility] CHEMISTRY Glucose Lvl 237 mg/dL 70 - 99 11/17 HI 6Interpretive Data: Adult reference range values reflect the clinical guidelines of the [place] [employer]. [facility] CHEMISTRY Magnesium Lvl 1.4 mg/dL 1.8 - 2.4 11/17 LOW [facility] CHEMISTRY Phosphorus 3.4 mg/dL 2.5 - 4.5 11/17 Normal [facility] HEMATOLOGY Segs 60.3 % 45.0 - 11/17 Normal [facility] 75.0 [facility] HEMATOLOGY Monocytes 9.0 % 2.0 - 12.0 11/17 Normal [facility] HEMATOLOGY Lymphocytes 27.8 % 20.0 - 11/17 Normal [facility] 40.0 [facility] HEMATOLOGY Eosinophils 2.1 % 0.0 - 4.0 11/17 Normal [facility] HEMATOLOGY Lymphocytes # 2.3 K/CMM 1.0 - 5.5 11/17 Normal [facility] HEMATOLOGY Eosinophils # 0.2 K/CMM 0.0 - 0.5 11/17 Normal [facility] HEMATOLOGY Basophils 0.8 % 0.0 - 1.0 11/17 Normal [facility] HEMATOLOGY Segs-Bands # 5.1 K/CMM 1.5 - 8.1 11/17 Normal [facility] HEMATOLOGY Basophils # 0.1 K/CMM 0.0 - 0.2 11/17 Normal [facility] HEMATOLOGY Monocytes # 0.8 K/CMM 0.0 - 0.8 11/17 Normal [facility] HEMATOLOGY Microcyte 1+ None Seen 11/17 ABN Medical *ABN* Center (11/17/2012 04:33:00) HEMATOLOGY INR 1.09 0.85 - 11/17 Normal 8Interpretive Data: RECOMMENDED RANGES FOR PROTIME INR: [facility] . 2.0-3.0 for most medical and surgical thromboembolic states. Medical 2.5-3.5 for artificial heart valves and recurrent embolism. Center INR SHOULD BE USED ONLY FOR PATIENTS ON STABLE ANTICOAGULANT THERAPY. HEMATOLOGY PT 14.3 s 12.0 - 11/17 Normal [facility] 14.7 [facility] HEMATOLOGY PTT 31.8 s 22.9 - 11/17 Normal 9Interpretive [facility] 35.8 Data: [facility] Therapeutic Center Range: 57 - 92 Seconds HEMATOLOGY Platelet 177 K/CMM 133 - 450 11/17 Normal Medical Center HEMATOLOGY MPV 9.5 fL 7.4 - 10.4 11/17 Normal /2012 Medical [place] HEMATOLOGY MCH 24.5 pg 27.0 - 11/17 [facility] 31.0 /2012 Medical Center HEMATOLOGY RDW 18.9 % 11.5 - 11/17 HI [place] 14.5 /2012 Medical Center HEMATOLOGY MCHC 32.3 g/dL 32.0 - 11/17 Normal [facility] 36.0 /2012 Medical Center HEMATOLOGY MCV 75.9 fL 81.0 - 11/17 [facility] 99.0 /2012 Medical Center HEMATOLOGY RBC 3.67 M/CMM 4.20 - 11/17 [facility] 5.40 /2012 Medical Center HEMATOLOGY WBC 8.4 K/CMM 3.7 - 10.4 11/17 Normal [facility] HEMATOLOGY Hct 27.9 % 36.0 - 11/17 [facility] 48.0 /2012 Medical Center HEMATOLOGY Hgb 9.0 g/dL 12.0 - 11/17 [facility] 16.0 Medical Center CHEMISTRY Troponin-T null 0.000 - 11/17 Normal [facility] 0.100 [facility] CHEMISTRY Troponin-I null 0.00 - 11/17 Normal [facility] 0.40 Medical Center CHEMISTRY Total CK 76 unit/L 11/17 Normal [facility] CHEMISTRY CK MB Index 0.8 0.0 - 2.5 11/17 Normal [facility] CHEMISTRY CK MB 0.6 ng/mL 0.5 - 3.6 11/17 Normal [facility] Center BEDSIDE Gluc POC 305 mg/dL 70 - 99 11/17 [place] 3Interpretive [facility] GLUCOSE Lifscn Data: Medical TESTING Center Upper Reportable Limit: 200 mg/dL. BEDSIDE Comment1 Notify 11/17 NA [facility] GLUCOSE RN/MD /2012 Medical TESTING Center CHEMISTRY Magnesium Lvl 1.4 mg/dL 1.8 - 2.4 11/16 LOW [facility] Center CHEMISTRY Total CK 27 unit/L 11/16 Normal [facility] Center CHEMISTRY Troponin-T null 0.000 - 11/16 Normal [facility] 0.100 [facility] Center CHEMISTRY Troponin-I null 0.00 - 11/16 Normal [facility] 0.40 Medical Center CHEMISTRY B/C Ratio 6 6 - 25 11/16 Normal [facility] CHEMISTRY A/G Ratio 1.0 0.7 - 1.6 11/16 Normal [facility] CHEMISTRY AGAP 18.6 meq/L 10.0 - 11/16 Normal [facility] 20.0 [facility] CHEMISTRY Globulin 3.5 g/dL 2.0 - 4.0 11/16 Normal [facility] CHEMISTRY eGFR 67 11/16 NA 5Result Comment: The eGFR is calculated using the CKD-EPI formula. In most young, healthy individuals the eGFR will be > 90 mL/min/1.73m2. The eGFR declines with age. An eGFR of 60-89 may be normal in [facility] mL/min/1.7 /2012 some populations, particularly the elderly, for whom the CKD-EPI formula has not been extensively validated. Use of the eGFR is not recommended in the following populations: [address] Individuals with unstable creatinine concentrations, including [...] 3.4 g/dL 3.5 - 5.0 11/16 LOW [facility] CHEMISTRY Alk Phos 88 unit/L 39 - 136 11/16 Normal [facility] CHEMISTRY Glucose Lvl 256 mg/dL 70 - 99 11/16 [place] 7Interpretive Data: Adult reference range values reflect the clinical guidelines of the [place] [employer]. [facility] CHEMISTRY BUN 6 mg/dL 7 - 22 11/16 LOW [facility] CHEMISTRY Sodium Lvl 136 meq/L 135 - 145 11/16 Normal [facility] CHEMISTRY Chloride Lvl 99 meq/L 95 - 109 11/16 Normal [facility] CHEMISTRY Creatinine 1.0 mg/dL 0.5 - 1.4 11/16 Normal [facility] CHEMISTRY Potassium Lvl 3.6 meq/L 3.5 - 5.1 11/16 Normal [facility] CHEMISTRY CO2 22 meq/L 24 - 32 11/16 LOW [facility] CHEMISTRY Calcium Lvl 8.8 mg/dL 8.5 - 10.5 11/16 Normal [facility] CHEMISTRY Bili Total 0.6 mg/dL 0.2 - 1.3 11/16 Normal [facility] CHEMISTRY Total Protein 6.9 g/dL 6.4 - 8.4 11/16 Normal [facility] CHEMISTRY AST 52 unit/L 0 - 37 11/16 HI [facility] CHEMISTRY ALT 52 unit/L 0 - 65 11/16 Normal [facility] CHEMISTRY Phosphorus 1.6 mg/dL 2.5 - 4.5 11/16 LOW [facility] HEMATOLOGY Lymphocytes 16.8 % 20.0 - 11/16 LOW [facility] 40.0 [facility] HEMATOLOGY Segs 72.3 % 45.0 - 11/16 Normal [facility] 75.0 [facility] HEMATOLOGY Large Plt Slight None Seen 11/16 [facility] (11/16/2012 13:17:00) HEMATOLOGY Elliptocyte Slight None Seen 11/16 [facility] (11/16/2012 13:17:00) HEMATOLOGY Polychrom Slight None Seen 11/16 Normal [facility] (11/16/2012 13:17:00) Center HEMATOLOGY Microcyte 1+ None Seen 11/16 [facility] (11/16/2012 13:17:00) HEMATOLOGY Basophils # 0.1 K/CMM 0.0 - 0.2 11/16 Normal [facility] HEMATOLOGY Hypochrom Slight None Seen 11/16 [facility] (11/16/2012 13:17:00) Center HEMATOLOGY Anisocyte 1+ None Seen 11/16 [facility] (11/16/2012 13:17:00) HEMATOLOGY Schistocyte Occasional 11/16 NA [facility] HEMATOLOGY Monocytes 8.6 % 2.0 - 12.0 11/16 Normal [facility] HEMATOLOGY Eosinophils 1.5 % 0.0 - 4.0 11/16 Normal [facility] HEMATOLOGY Monocytes # 1.1 K/CMM 0.0 - 0.8 11/16 HI [facility] HEMATOLOGY Segs-Bands # 9.7 K/CMM 1.5 - 8.1 11/16 [facility] Medical Center HEMATOLOGY Eosinophils # 0.2 [...] WBC 13.3 K/CMM 3.7 - 10.4 11/16 [facility] Medical Center HEMATOLOGY RDW 18.0 % 11.5 - 11/16 [facility] [place] 14.5 /2012 Medical Center HEMATOLOGY Hct 32.4 % 36.0 - 11/16 LOW [place] 48.0 /2012 Medical Center HEMATOLOGY MCHC 33.3 g/dL 32.0 - 11/16 Normal [facility] 36.0 /2012 Medical Center HEMATOLOGY MCV 75.4 fL 81.0 - 11/16 LOW [facility] 99.0 /2012 Medical Center HEMATOLOGY MCH 25.1 pg 27.0 - 11/16 LOW [facility] 31.0 /2012 Medical Center HEMATOLOGY Platelet 230 K/CMM 133 - 450 11/16 Normal [facility] HEMATOLOGY MPV 9.9 fL 7.4 - 10.4 11/16 Normal [facility] BEDSIDE Comment1 Notify 11/14 NA Fei GLUCOSE MARTÍNEZ/ /2012 Medical TESTING Center BEDSIDE Gluc POC 266 mg/dL - 11/14 HI 2Interpretive [facility] GLUCOSE Lifsc Data: Medical TESTING Center Upper Reportable Limit: 200 mg/dL. BEDSIDE Comment1 Notify 11/14 NA Fei GLUCOSE MARTÍNEZ/ /2012 [facility] BEDSIDE Gluc POC 140 mg/dL - 11/14 HI 3Interpretive [facility] GLUCOSE Lifsc Data: Medical TESTING Center Upper Reportable Limit: 200 mg/dL. BEDSIDE Comment1 Notify 11/14 NA Fei GLUCOSE MARTÍNEZ/ /2012 [facility] BEDSIDE Gluc POC 201 mg/dL 70 - 11/14 HI 4Interpretive [facility] GLUCOSE Lifsc Data: Medical TESTING Center Upper Reportable Limit: 200 mg/dL. CHEMISTRY A/G Ratio 0.9 0.7 - 1.6 11/14 Normal [facility] CHEMISTRY AST 41 unit/L 0 - 37 11/14 HI [facility] CHEMISTRY eGFR 104 11/14 NA 6Result Comment: The eGFR is calculated using the CKD-EPI formula. In most young, healthy individuals the eGFR will be > 90 mL/min/1.73m2. The eGFR declines with age. An eGFR of 60-89 may be normal in [facility] mL/min/1.7 some populations, particularly the elderly, for whom the CKD-EPI formula has not been extensively validated. Use of the eGFR is not recommended in the following populations: [address] Individuals with unstable creatinine concentrations, including [...] 2.9 g/dL 3.5 - 5.0 11/14 LOW [facility] CHEMISTRY Alk Phos 84 unit/L 39 - 136 11/14 Normal [facility] CHEMISTRY BUN 3 mg/dL 7 - 22 11/14 LOW [facility] CHEMISTRY Creatinine 0.7 mg/dL 0.5 - 1.4 11/14 Normal [facility] CHEMISTRY Sodium Lvl 136 meq/L 135 - 145 11/14 Normal [facility] CHEMISTRY Total Protein 6.3 g/dL 6.4 - 8.4 11/14 LOW [facility] CHEMISTRY ALT 51 unit/L 0 - 65 11/14 Normal [facility] CHEMISTRY Potassium Lvl 3.7 meq/L 3.5 - 5.1 11/14 Normal [facility] CHEMISTRY Chloride Lvl 101 meq/L 95 - 109 11/14 Normal [facility] CHEMISTRY Glucose Lvl 210 mg/dL 70 - 99 11/14 HI 9Interpretive Data: Adult reference range values reflect the clinical guidelines of the [place] [employer]. [facility] Center CHEMISTRY AGAP 15.7 meq/L 10.0 - 0311 Normal [place] 20.0 [facility] CHEMISTRY B/C Ratio 4 6 - 25 11/14 LOW [facility] CHEMISTRY Globulin 3.4 g/dL 2.0 - 4.0 11/14 Normal [facility] CHEMISTRY CO2 23 meq/L 24 - 32 11/14 LOW [facility] CHEMISTRY Bili Total 0.4 mg/dL 0.2 - 1.3 11/14 Normal [facility] CHEMISTRY Calcium Lvl 8.5 mg/dL 8.5 - 10.5 11/14 Normal [facility] CHEMISTRY Phosphorus 3.6 mg/dL 2.5 - 4.5 11/14 Normal [facility] CHEMISTRY Magnesium Lvl 1.5 mg/dL 1.8 - 2.4 11/14 LOW [facility] CHEMISTRY Ca Norm mgdL 3.52 mg/dL 4.65 - 11/14 LOW [facility] 5. [facility] CHEMISTRY Ca Ion mgdL 3.32 mg/dL 4.65 - 11/14 CRIT [place] 5. [facility] CHEMISTRY Ca Ion 0.83 1.16 - 11/14 CRIT 15Result [place] mMol/L 1. Comment: [facility] Critical Center Result(s) called to Arlin Rose at 11/14/2012 00:23:56 CDT_ by_tvs. Read back OK. CHEMISTRY Ca Norm 0.88 1.16 - 11/14 CRIT [place] mMol/L 1. [facility] HEMATOLOGY Platelet 221 K/CMM 133 - 450 11/14 Normal [facility] HEMATOLOGY RDW 19.0 % 11.5 - 03 HI [place] 14.5 /2012 Medical Center HEMATOLOGY MCHC 32.4 g/dL 32.0 - 11/14 Normal [facility] 36.0 [facility] HEMATOLOGY MCV 75.5 fL 81.0 - 11/14 LOW [place] 99.0 /2012 [facility] HEMATOLOGY Hct 35.5 % 36.0 - 11/14 LOW [place] 48.0 /2012 [facility] HEMATOLOGY Hgb 11.5 g/dL 12.0 - 11/14 LOW [place] 16.0 /2012 Medical [place] HEMATOLOGY MCH 24.5 pg 27.0 - 11/14 [facility] [place] 31.0 [facility] HEMATOLOGY MPV 9.1 fL 7.4 - 10.4 11/14 Normal [facility] HEMATOLOGY RBC 4.70 M/CMM 4.20 - 03 Normal [place] 5.40 /2012 [facility] HEMATOLOGY WBC 8.6 K/CMM 3.7 - 10.4 11/14 Normal [facility] HEMATOLOGY Segs 53.3 % 45.0 - 11/14 Normal [facility] 75.0 [facility] HEMATOLOGY Microcyte 1+ None Seen 11/14 ABN Medical *ABN* Center (11/13/2012 23:45:00) HEMATOLOGY Basophils # 0.1 K/CMM 0.0 - 0.2 11/14 Normal [facility] HEMATOLOGY Eosinophils # 0.2 K/CMM 0.0 - 0.5 11/14 Normal [facility] HEMATOLOGY Monocytes # 0.9 K/CMM 0.0 - 0.8 11/14 HI [facility] HEMATOLOGY Lymphocytes # 2.9 K/CMM 1.0 - 5.5 11/14 Normal [facility] HEMATOLOGY Monocytes 10.3 % 2.0 - 12.0 11/14 Normal [facility] HEMATOLOGY Lymphocytes 33.6 % 20.0 - 11/14 Normal [facility] 40.0 [facility] HEMATOLOGY Segs-Bands # 4.6 K/CMM 1.5 - 8.1 11/14 Normal [facility] HEMATOLOGY Basophils 0.7 % 0.0 - 1.0 11/14 Normal [facility] HEMATOLOGY Eosinophils 2.1 % 0.0 - 4.0 11/14 Normal [facility] CHEMISTRY Lipase Lvl 43 unit/L 73 - 393 11/13 LOW [facility] CHEMISTRY Amylase Lvl 14 unit/L 25 - 115 11/13 [facility] CHEMISTRY A/G Ratio 0.8 0.7 - 1.6 11/13 Normal [facility] CHEMISTRY AST 56 unit/L 0 - 37 11/13 HI [facility] CHEMISTRY Alk Phos 67 unit/L 39 - 136 11/13 Normal [facility] CHEMISTRY Globulin 2.9 g/dL 2.0 - 4.0 11/13 Normal [facility] CHEMISTRY Total Protein 5.3 g/dL 6.4 - 8.4 11/13 LOW [facility] CHEMISTRY Albumin Lvl 2.4 g/dL 3.5 - 5.0 11/13 LOW [facility] CHEMISTRY ALT 41 unit/L 0 - 65 11/13 Normal [facility] CHEMISTRY Bili Indirect 0.3 mg/dL 0.0 - 1.0 11/13 Normal [facility] CHEMISTRY Bili Direct 0.1 mg/dL 0.0 - 0.3 11/13 Normal [facility] CHEMISTRY Bili Total 0.4 mg/dL 0.2 - 1.3 11/13 Normal [facility] CHEMISTRY eGFR 137 11/13 NA 7Result Comment: The eGFR is calculated using the CKD-EPI formula. In most young, healthy individuals the eGFR will be > 90 mL/min/1.73m2. The eGFR declines with age. An eGFR of 60-89 may be normal in [facility] mL/min/1. some populations, particularly the elderly, for whom the CKD-EPI formula has not been extensively validated. Use of the eGFR is not recommended in the following populations: [address] Individuals with unstable creatinine concentrations, including [...] AGAP 17.3 meq/L 10.0 - 11/13 Normal [facility] 20.0 [facility] CHEMISTRY Calcium Lvl 6.7 mg/dL 8.5 - 10.5 11/13 CRIT 13Result Comment: [facility] Result(s) called to _hansel gustafson at _11/13/2012 06:59:47 CDT bylg. Read back OK. CHEMISTRY CO2 17 meq/L 24 - 32 11/13 LOW [facility] CHEMISTRY Chloride Lvl 111 meq/L 95 [...] BUN 3 mg/dL 7 - 22 11/13 [facility] CHEMISTRY Glucose Lvl 104 mg/dL 70 - 99 11/13 HI 10Interpretive Data: Adult reference range values reflect the clinical guidelines of the [place] [employer]. Medical Center CHEMISTRY Magnesium Lvl 1.3 mg/dL 1.8 - 2.4 11/13 LOW [facility] CHEMISTRY Phosphorus 2.8 mg/dL 2.5 - 4.5 11/13 Normal [facility] CHEMISTRY Ca Ion 1.01 1.16 - 11/13 [facility] [place] mMol/L 1. [facility] CHEMISTRY Ca Norm 1.07 1.16 - 11/13 [facility] mMol/L 1. [facility] CHEMISTRY Ca Norm mgdL 4.28 mg/dL 4.65 - 11/13 [facility] . [facility] CHEMISTRY Ca Ion mgdL 4.04 mg/dL 4.65 - 11/13 [facility] 5.20 [facility] HEMATOLOGY MCV 78.6 fL 81.0 - 11/13 [facility] 99.0 /2012 [facility] HEMATOLOGY MPV 9.1 fL 7.4 - 10.4 11/13 Normal [facility] HEMATOLOGY MCHC 31.1 g/dL 32.0 - 11/13 [facility] 36.0 [facility] HEMATOLOGY MCH 24.4 pg 27.0 - 11/13 [facility] [place] 31.0 [facility] HEMATOLOGY Hct 29.4 % 36.0 - 03 [facility] 48.0 /2012 Medical [place] HEMATOLOGY RDW 19.1 % 11.5 - 0310 [facility] 14.5 /2012 Medical Center HEMATOLOGY Platelet 192 K/CMM 133 - 450 11/13 Normal [facility] HEMATOLOGY Hgb 9.1 g/dL 12.0 - 03 [facility] [place] 16.0 [facility] HEMATOLOGY RBC 3.74 M/CMM 4.20 - 03 [facility] [place] 5.40 /2012 Medical Center HEMATOLOGY WBC 6.8 K/CMM 3.7 - 10.4 11/13 Normal [facility] HEMATOLOGY Plt Morph Normal 11/13 Normal Medical (11/13/2012 05:00:00) [place] HEMATOLOGY Atypical 0.0 % <=0.0 11/13 Normal [facility] Lymph [facility] HEMATOLOGY RBC Morph Normal 11/13 Normal [facility] (11/13/2012 05:00:00) [place] HEMATOLOGY Eosinophils 2.0 % 0.0 - 4.0 11/13 Normal [facility] HEMATOLOGY Bands 0.0 % 0.0 - 11.0 11/13 Normal [facility] HEMATOLOGY Segs 51.0 % 45.0 - 11/13 Normal [facility] 75.0 [facility] HEMATOLOGY Eosinophils # 0.1 K/CMM 0.0 - 0.5 11/13 Normal [facility] HEMATOLOGY Segs-Bands # 3.5 K/CMM 1.5 - 8.1 11/13 Normal [facility] HEMATOLOGY Monocytes 5.0 % 2.0 - 12.0 11/13 Normal [facility] HEMATOLOGY Lymphocytes 42.0 % 20.0 - 11/13 HI [facility] 40.0 [facility] HEMATOLOGY Monocytes # 0.3 K/CMM 0.0 - 0.8 11/13 Normal [facility] HEMATOLOGY Lymphocytes # 2.9 K/CMM 1.0 - 5.5 11/13 [facility]2012 [facility] INFECTIOUS C difficile Negative 1 Negative 11/13 Normal 1Interpretive Data: Call Britannia [employer] Clostridium difficile assay utilizes loop-mediated isothermal DNA amplification (LAMP) technology to detect a 204 bp region of the tcdA gene within the PaLoc gene [facility] segment present in all known toxigenic C. difficile strains. [facility] (11/12/2012 21:54:26) [place] The assay utilizes FDA cleared IVD reagents. Performance characteristics have been verified by the [facility] within the [facility]. The [facility] is authorized under the Clinical Laboratory Improvement Amendment of 1988 (CLIA-88) to perform high complexity testing. CHEMISTRY Total CK 25 unit/L 12 - 191 11/12 Normal [facility] CHEMISTRY Troponin-I null 0.00 - 11/12 Normal [facility] 0.40 [facility] CHEMISTRY eGFR 88 11/12 NA 8Result Comment: The eGFR is calculated using the CKD-EPI formula. In most young, healthy individuals the eGFR will be > 90 mL/min/1.73m2. The eGFR declines with age. An eGFR of 60-89 may be normal in [facility] mL/min/1. some populations, particularly the elderly, for whom the CKD-EPI formula has not been extensively validated. Use of the eGFR is not recommended in the following populations: Medical [facility] Individuals with unstable creatinine concentrations, including [...] AGAP 13.7 meq/L 10.0 - 11/12 Normal [facility] 20.0 [facility] CHEMISTRY Calcium Lvl 8.5 mg/dL 8.5 - 10.5 11/12 Normal [facility] CHEMISTRY CO2 25 meq/L 24 - 32 11/12 Normal [facility] CHEMISTRY Potassium Lvl 3.7 meq/L 3.5 - 5.1 11/12 Normal [facility] CHEMISTRY Sodium Lvl 138 meq/L 135 - 145 11/12 Normal [facility] CHEMISTRY Chloride Lvl 103 meq/L 95 - 109 11/12 Normal [facility] CHEMISTRY Creatinine 0.8 mg/dL 0.5 - 1.4 11/12 Normal [facility] CHEMISTRY BUN 5 mg/dL 7 - 22 11/12 LOW [facility] CHEMISTRY Glucose Lvl 40 mg/dL 70 - 99 11/12 CRIT 12Interpretive Data: Adult reference range values reflect the clinical guidelines of the [place] [employer]. [facility] CHEMISTRY Ca Norm mgdL 4.20 mg/dL 4.65 - 11/12 [facility] 01.23 [facility] CHEMISTRY Ca Norm 1.05 1.16 - 11/12 LOW [place] mMol/L 1. [facility] CHEMISTRY Ca Ion mgdL 4.00 mg/dL 4.65 - 11/12 LOW [facility] 01.23 [facility] CHEMISTRY Ca Ion 1.00 1.16 - 03/09 LOW [facility] mMol/L 1.30 [facility] CHEMISTRY Magnesium Lvl 1.9 mg/dL 1.8 - 2.4 11/12 Normal [facility] CHEMISTRY Phosphorus 3.2 mg/dL 2.5 - 4.5 11/12 Normal [facility] HEMATOLOGY MCHC 32.0 g/dL 32.0 - 11/12 Normal [facility] 36.0 /2012 [facility] HEMATOLOGY MCH 24.1 pg 27.0 - 11/12 LOW [facility] 31.0 [facility] HEMATOLOGY MCV 75.3 fL 81.0 - 11/12 LOW [facility] 99.0 /2012 [facility] HEMATOLOGY WBC 9.2 K/CMM 3.7 - 10.4 11/12 Normal [facility] HEMATOLOGY Platelet 233 K/CMM 133 - 450 11/12 Normal [facility] HEMATOLOGY MPV 9.1 fL 7.4 - 10.4 11/12 Normal [facility] HEMATOLOGY RDW 19.0 % 11.5 - 11/12 HI [facility] 14.5 [facility] HEMATOLOGY RBC 4.19 M/CMM 4.20 - 11/12 [facility] 5.40 /2012 [facility] HEMATOLOGY Hgb 10.1 g/dL 12.0 - 11/12 [facility] 16.0 [facility] HEMATOLOGY Hct 31.6 % 36.0 - 03 [facility] 48.0 /2012 [facility] HEMATOLOGY Hypochrom Slight None Seen 11/12 Normal [facility] (11/12/2012 00:19:00) Center HEMATOLOGY Large Plt Slight None Seen 11/12 [facility] *ABN* Center (11/12/2012 00:19:00) HEMATOLOGY Atypical 0.0 % <=0.0 11/12 Normal [facility] Lymphs [facility] HEMATOLOGY Basophils 1.0 % 0.0 - 1.0 11/12 Normal [facility] HEMATOLOGY Lymphocytes 39.0 % 20.0 - 03 [facility] 40.0 [facility] HEMATOLOGY Bands 0.0 % 0.0 - 11.0 11/12 Normal [facility] HEMATOLOGY Eosinophils 2.0 % 0.0 - 4.0 11/12 Normal [facility] HEMATOLOGY Monocytes 6.0 % 2.0 - 12.0 11/12 Normal [facility] HEMATOLOGY Segs 52.0 % 45.0 - 03 Normal [place] 75.0 [facility] HEMATOLOGY Basophils # 0.1 K/CMM 0.0 - 0.2 11/12 Normal [facility]2012 [facility] HEMATOLOGY Monocytes # 0.6 K/CMM 0.0 - 0.8 11/12 Normal 2012 [facility] HEMATOLOGY Lymphocytes # 3.6 K/CMM 1.0 - 5.5 11/12 Normal 2012 [facility] HEMATOLOGY Segs-Bands # 4.8 K/CMM 1.5 - 8.1 11/12 Normal [facility]2012 [facility] HEMATOLOGY Eosinophils # 0.2 K/CMM 0.0 - 0.5 11/12 Normal 2012 [facility] HEMATOLOGY Microcyte 1+ None Seen 11/11 [facility] [place] (11/11/2012 03:41:00) HEMATOLOGY Basophils # 0.1 K/CMM 0.0 - 0.2 11/11 Normal [facility] HEMATOLOGY Basophils 0.7 % 0.0 - 1.0 11/11 Normal [facility] HEMATOLOGY Microcyte 1+ None Seen 11/09 [facility] [place] (11/09/2012 05:12:00) URINALYSIS UA pH 5.0 5.0 - 8.0 11/08 Normal [facility] URINALYSIS UA Protein 20 mg/dL Negative 11/08 [facility] [place] (11/07/2012 20:54:00) URINALYSIS UA Turbidity Slight Clear 11/08 [facility] [place] (11/07/2012 20:54:00) URINALYSIS UA Spec Grav 1.010 <=1.030 11/08 Normal [facility] URINALYSIS UA Color Yellow Yellow 11/08 [facility] [place] (11/07/2012 20:54:00) URINALYSIS UA Bacteria Moderate /HPF None Seen 11/08 [facility] [place] (11/07/2012 20:54:00) URINALYSIS UA Mucus Few /LPF None Seen 11/08 [facility] [place] (11/07/2012 20:54:00) URINALYSIS UA WBC null 0 - 5 11/08 [facility] URINALYSIS UA RBC 4 /HPF 0 - 2 11/08 [facility] URINALYSIS UA Sq Epi Moderate /LPF Few 11/08 [facility] *ABN* Center (11/07/2012 20:54:00) URINALYSIS UA Leuk Est Large Negative 11/08 [facility] *ABN* Center (11/07/2012 20:54:00) URINALYSIS UA Blood Trace Negative 11/08 ABN [facility] *[facility]* [place] (11/07/2012 20:54:00) URINALYSIS UA Nitrite Negative Negative 11/08 Normal [facility] (11/07/2012 20:54:00) Center URINALYSIS UA Ketones 40 mg/dL Negative 11/08 [facility] [place] (11/07/2012 20:54:00) URINALYSIS UA Bili Negative Negative 11/08 [facility] *NA* Center (11/07/2012 20:54:00) URINALYSIS Micro? Performed 11/08 NA [facility] *NA* Center (11/07/2012 20:54:00) URINALYSIS UA <=1.0 0.1 - 1.0 11/08 Located within [facility] Urobilinogen mg/dL Medical
*NA*< Center br/>(11/07 20:54:00) <sup> </sup> URINALYSIS UA Glucose >=1000mg/d 11/08 Loc[facility] URINALYSIS UA Hyal Cast 37 /LPF 0 - 2 11/08 [facility] URINALYSIS UA Ketones 40 mg/dL Negative 11/07 [facility] *ABN* Center (11/07/2012 06:24:57) CHEMISTRY Hgb A1C 8.2 % 11/07 NA 14Interpretive Data: HbA1C% eAG( mg/dL) Interpretation 6.0 126 Very good control [facility] 6.5 140 Very good control [place] 7.0 154 Good Control 7.5 169 Good Control 8.0 183 Marginal Control, take action to lower 8.5 197 Marginal Control, take action to lower 9.0 212 Poor Control, take action to lower 9.5 226 Poor Control, take action to lower 10.0 240 Poor Control, take action to lower CHEMISTRY Ketone 2.20 <=0.27 11/06 HI [place] Quantitative mmol/L /2012 Medical [place] CHEMISTRY U Osmolality 207 300 - 800 11/06 LOW [facility] mOsm/kg Medical [place] CHEMISTRY POC A %FIO2 21.0 % 18.0 - 11/06 Normal [facility] 100.0 Medical [place] CHEMISTRY POC A LA 0.9 mMol/L 0.5 - 2.2 11/06 Normal [facility] CHEMISTRY POC A Glu 281 mg/dL 70 - 99 11/06 HI [facility] CHEMISTRY POC A Temp 37.0 Abby 11/06 NA [facility] CHEMISTRY POC A Source ART 11/06 NA [facility] CHEMISTRY POC A pH 7.45 7.35 - 11/06 Normal [facility] 7.45 [facility] CHEMISTRY POC A HCO3 24 mMol/L 22 - 26 11/06 Normal [facility] CHEMISTRY POC A PCO2 35 mm[Hg] 35 - 45 11/06 Normal [facility] CHEMISTRY POC A PO2 85 mm[Hg] 80 - 100 11/06 Normal [facility] CHEMISTRY POC A BE 0 mMol/L -2-2 - 2 11/06 Normal [facility] CHEMISTRY POC A O2 Sat 97.0 % 95.0 - 11/06 Normal [facility] 100.0 [facility] CHEMISTRY POC A Na 123 meq/L 135 - 145 11/06 LOW [facility] CHEMISTRY POC A Hct 31.0 % 36.0 - 11/06 [facility] 48.0 [facility] CHEMISTRY POC A Ca Ion 1.11 1.16 - 11/06 [facility] mMol/L 1.30 [facility] CHEMISTRY POC A K 3.7 meq/L 3.5 - 5.1 11/06 Normal [facility] CHEMISTRY POC A BE -4 mMol/L -2-2 - 2 11/06 LOW [facility] CHEMISTRY POC A HCO3 20 mMol/L 22 - 26 11/06 LOW [facility] CHEMISTRY POC A Source ART 11/06 NA [facility] CHEMISTRY POC A Temp 37.0 Abby 11/06 NA [facility] CHEMISTRY POC A pH 7.42 7.35 - 03 Normal [facility] 7.45 /2012 [facility] CHEMISTRY POC A PO2 81 mm[Hg] 80 - 100 11/06 Normal [facility] CHEMISTRY POC A O2 Sat 96.0 % 95.0 - 11/06 Normal [facility] 100.0 [facility] CHEMISTRY POC A PCO2 31 mm[Hg] 35 - 45 11/06 LOW [facility] CHEMISTRY POC A %FIO2 21.0 % 18.0 - 03 Normal [facility] 100.0 /2012 [facility] Microbiolog Culture: 11/06 [facility] y Urine /2012 [facility] CHEMISTRY Troponin-I null 0.00 - 11/06 Normal [facility] 0.40 /2012 [facility] CHEMISTRY Troponin-T null 0.000 - 11/06 Normal [facility] 0.100 /2012 [facility] CHEMISTRY Total CK 48 unit/L 12 - 191 11/06 Normal [facility] URINALYSIS UA <=1.0 0.1 - 1.0 11/06 Located within [facility] Urobilinogen mg/dL Medical
*NA*< Center br/>(11/06 03:15:40) <sup> </sup> URINALYSIS UA Leuk Est Large Negative 11/06 [facility] *ABN* Center (11/06/2012 03:15:40) URINALYSIS UA Sq Epi Moderate /LPF Few 11/06 [facility] *ABN* Center (11/06/2012 03:15:40) URINALYSIS UA Mucus Few /LPF None Seen 11/06 [facility] *NA* Center (11/06/2012 03:15:40) URINALYSIS UA Nitrite Negative Negative 11/06 Normal [facility] (11/06/2012 03:15:40) Center URINALYSIS UA Bacteria Occasional /HPF None Seen 11/06 [facility] *NA* Center (11/06/2012 03:15:40) URINALYSIS UA WBC 67 /HPF 0 - 5 11/06 [facility] Center URINALYSIS UA Blood Negative Negative 11/06 Normal [facility] (11/06/2012 03:15:40) Center URINALYSIS UA Bili Negative Negative 11/06 [facility] Medical *NA* Center (11/06/2012 03:15:40) URINALYSIS UA Ketones 60 mg/dL Negative 11/06 ABN Medical *ABN* Center (11/06/2012 03:15:40) URINALYSIS UA pH 5.0 5.0 - 8.0 11/06 Normal [facility] URINALYSIS UA Glucose >=1000 mg/dL Negative 11/06 [facility] Medical *ABN* Center (11/06/2012 03:15:40) URINALYSIS UA Spec Grav 1.014 <=1.030 11/06 Normal [facility] URINALYSIS UA Protein Negative mg/dL Negative 11/06 Normal Medical (11/06/2012 03:15:40) Center URINALYSIS UA Turbidity Slight Clear 11/06 [facility] *ABN* Center (11/06/2012 03:15:40) URINALYSIS UA Color Yellow Yellow 11/06 NA [facility] *NA* Center (11/06/2012 03:15:40) CHEMISTRY Troponin-I 0.02 ng/mL 0.00 - 11/06 Normal [facility] 0.40 [facility] CHEMISTRY Total CK 30 unit/L 12 - 191 11/06 Normal [facility] CHEMISTRY Troponin-T null 0.000 - 11/06 Normal [facility] 0.100 [facility] CHEMISTRY Ketone 3.00 <=0.27 11/06 [facility] Quantitative mmol/L /2012 [facility] CHEMISTRY Lipase Lvl 89 unit/L 73 - 393 11/06 Normal [facility] CHEMISTRY Globulin 4.3 g/dL 2.0 - 4.0 11/06 HI [facility] CHEMISTRY A/G Ratio 0.9 0.7 - 1.6 11/06 Normal [facility] CHEMISTRY B/C Ratio 7 6 - 25 11/06 Normal [facility] CHEMISTRY Albumin Lvl 3.7 g/dL 3.5 - 5.0 11/06 Normal [facility] CHEMISTRY Total Protein 8.0 g/dL 6.4 - 8.4 11/06 Normal [facility] CHEMISTRY ALT 62 unit/L 0 - 65 11/06 Normal [facility] CHEMISTRY Alk Phos 119 unit/L 39 - 136 11/06 Normal [facility] CHEMISTRY Bili Total 0.5 mg/dL 0.2 - 1.3 11/06 Normal [facility] CHEMISTRY AST 44 unit/L 0 - 37 11/06 HI Medical [place] HEMATOLOGY Polychrom Slight None Seen 11/06 Normal Medical (11/05/2012 20:40:00) Center HEMATOLOGY Hypochrom Slight None Seen 11/06 Normal Medical (11/05/2012 20:40:00) Center HEMATOLOGY Bands 1.0 % 0.0 - 11.0 11/06 Normal [facility] HEMATOLOGY Anisocyte 1+ None Seen 11/06 ABN Medical *ABN* Center (11/05/2012 20:40:00) HEMATOLOGY Atypical 0.0 % <=0.0 11/06 Normal [facility] HEMATOLOGY Macrocyte 1+ None Seen 11/06 [facility] *ABN* [place] (11/05/2012 20:40:00) HEMATOLOGY Plt Morph Normal 11/06 Normal [facility] (11/05/2012 20:40:00) Center HEMATOLOGY INR 0.98 0.85 - 11/06 Normal 16Interpretive Data: RECOMMENDED RANGES FOR PROTIME INR: [facility] . 2.0-3.0 for most medical and surgical thromboembolic states. Medical 2.5-3.5 for artificial heart valves and recurrent embolism. Center INR SHOULD BE USED ONLY FOR PATIENTS ON STABLE ANTICOAGULANT THERAPY. HEMATOLOGY PT 13.2 s 12.0 - 11/06 Normal [facility] 14.7 [facility] HEMATOLOGY PTT 26.4 s 22.9 - 11/06 Normal 17Interpretiv [facility] 35.8 /2012 e Data: [facility] Therapeutic Range: 57 - 92 Seconds BEDSIDE Gluc POC null 70 - 11/01 CRIT 3Interpretive [facility] GLUCOSE Lifmon Data: Medical TESTING Center Upper Reportable Limit: 200 mg/dL. BEDSIDE Comment1 Notify 11/01 NA Fei GLUCOSE RN/MD /2012 Medical TESTING Center BEDSIDE Gluc POC 237 mg/dL 70 - 99 10/31 HI 4Interpretive [facility] GLUCOSE Lifscn Data: Medical TESTING Center Upper Reportable Limit: 200 mg/dL. BEDSIDE Gluc POC 357 mg/dL 70 - 99 10/31 HI 5Interpretive [facility] GLUCOSE Lifscn /2013 Data: [facility] Center Upper Reportable Limit: 200 mg/dL. BEDSIDE Comment1 Notify 10/31 NA [facility] GLUCOSE RN/MD Medical [facility] Center CHEMISTRY Phosphorus 4.2 mg/dL 2.5 - 4.5 10/31 Normal [facility] CHEMISTRY Ca Norm mgdL 4.64 mg/dL 4.65 - 10/31 LOW [facility] 5. [facility] CHEMISTRY Ca Ion mgdL 4.44 mg/dL 4.65 - 10/31 LOW [facility] 5. [facility] CHEMISTRY Ca Norm 1.16 1.16 - 10/31 Normal [place] mMol/L 1. [facility] CHEMISTRY Ca Ion 1.11 1.16 - 10/31 LOW [facility] mMol/L . [facility] CHEMISTRY AGAP 16.9 meq/L 10.0 - 10/31 Normal [facility] 20.0 [facility] CHEMISTRY eGFR 67 10/31 NA 7Result Comment: The eGFR is calculated using the CKD-EPI formula. In most young, healthy individuals the eGFR will be > 90 mL/min/1.73m2. The eGFR declines with age. An eGFR of 60-89 may be normal in [facility] mL/min/1.7 some populations, particularly the elderly, for whom the CKD-EPI formula has not been extensively validated. Use of the eGFR is not recommended in the following populations: [place] [address] Center Individuals with unstable creatinine concentrations, including [...] 1.0 mg/dL 0.5 - 1.4 10/31 Normal [facility] Lvl [facility] Center CHEMISTRY Sodium Lvl 133 meq/L 135 - 145 10/31 [facility] CHEMISTRY Calcium Lvl 8.3 mg/dL 8.5 - 10.5 10/31 [facility] CHEMISTRY Potassium Lvl 3.9 meq/L 3.5 - 5.1 10/31 Normal [facility] CHEMISTRY Chloride Lvl 94 meq/L 95 - 109 10/31 [facility]2013 [facility] CHEMISTRY CO2 26 meq/L 24 - 32 10/31 Normal [facility] CHEMISTRY BUN 8 mg/dL 7 - 22 10/31 Normal [facility] CHEMISTRY Glucose Lvl 75 mg/dL 70 - 99 10/31 Normal 10Interpretive Data: Adult reference range values reflect the clinical guidelines of the [place] [employer]. [facility] CHEMISTRY Magnesium Lvl 1.9 mg/dL 1.8 - 2.4 10/31 Normal [facility] HEMATOLOGY MPV 9.4 fL 7.4 - 10.4 10/31 Normal [facility] HEMATOLOGY Hgb 9.7 g/dL 12.0 - 10/31 [facility] 16.0 [facility] HEMATOLOGY RBC 4.06 M/CMM 4.20 - 10/31 [facility] 5.40 /2012 [facility] HEMATOLOGY MCV 74.3 fL 81.0 - 10/31 [facility] 99.0 [facility] HEMATOLOGY Hct 30.2 % 36.0 - 10/31 [facility] 48.0 [facility] HEMATOLOGY MCHC 32.2 g/dL 32.0 - 10/31 [facility] 36.0 [facility] HEMATOLOGY MCH 23.9 pg 27.0 - 10/31 [facility] 31.0 [facility] HEMATOLOGY Platelet 199 K/CMM 133 - 450 10/31 Normal [facility] HEMATOLOGY RDW 17.5 % 11.5 - 10/31 [facility] 14.5 [facility] HEMATOLOGY WBC 9.4 K/CMM 3.7 - 10.4 10/31 [facility] HEMATOLOGY Lymphocytes # 2.7 K/CMM 1.0 - 5.5 10/31 Normal [facility] HEMATOLOGY Basophils 0.6 % 0.0 - 1.0 10/31 [facility] HEMATOLOGY Segs-Bands # 5.2 K/CMM 1.5 - 8.1 10/31 [facility] HEMATOLOGY Microcyte 1+ None Seen 10/31 [facility] Medical *ABN* Center (10/31/2012 04:00:00) HEMATOLOGY Monocytes # 1.1 K/CMM 0.0 - 0.8 10/31 [facility] HEMATOLOGY Eosinophils # 0.3 K/CMM 0.0 - 0.5 10/31 Normal [facility] HEMATOLOGY Basophils # 0.1 K/CMM 0.0 - 0.2 10/31 Normal [facility] HEMATOLOGY Segs 55.2 % 45.0 - 10/31 Normal [facility] 75.0 [facility] HEMATOLOGY Monocytes 11.8 % 2.0 - 12.0 10/31 Normal [facility] HEMATOLOGY Lymphocytes 28.9 % 20.0 - 10/31 Normal [facility] 40.0 [facility] HEMATOLOGY Eosinophils 3.5 % 0.0 - 4.0 10/31 Normal [facility] BEDSIDE Comment1 Notify 10/31 NA [facility] GLUCOSE RN/MD [facility] CHEMISTRY Ca Norm mgdL 4.92 mg/dL 4. - 10/30 Normal [facility] 5. [facility] CHEMISTRY Ca Ion mgdL 4.76 mg/dL 4.65 - 10/30 Normal [facility] 5. [facility] CHEMISTRY Ca Norm 1.23 1.16 - 10/30 Normal [facility] mMol/L 1. [facility] CHEMISTRY Ca Ion 1.19 1.16 - 10/30 Normal [facility] mMol/L 1. [facility] CHEMISTRY Phosphorus 3.8 mg/dL 2.5 - 4.5 10/30 Normal [facility] CHEMISTRY Magnesium Lvl 1.9 mg/dL 1.8 - 2.4 10/30 Normal [facility]2012 [facility] CHEMISTRY eGFR 88 10/30 NA 8Result Comment: The eGFR is calculated using the CKD-EPI formula. In most young, healthy individuals the eGFR will be > 90 mL/min/1.73m2. The eGFR declines with age. An eGFR of 60-89 may be normal in [facility] mL/min/1.7 /2012 some populations, particularly the elderly, for whom the CKD-EPI formula has not been extensively validated. Use of the eGFR is not recommended in the following populations: [place] [id number] Center Individuals with unstable creatinine concentrations, including [...] the clinical guidelines of the [place] [employer]. Medical Center CHEMISTRY Creatinine 0.8 mg/dL 0.5 - 1.4 10/30 Normal [facility] Lvl [facility] Center CHEMISTRY BUN 6 mg/dL 7 - 22 10/30 LOW Medical [place] CHEMISTRY Sodium Lvl 132 meq/L 135 - 145 10/30 LOW [facility] Center CHEMISTRY Calcium Lvl 8.5 mg/dL 8.5 - 10.5 10/30 Normal [facility] Center CHEMISTRY CO2 29 meq/L 24 - 32 10/30 Normal [facility] CHEMISTRY Chloride Lvl 92 meq/L 95 - 109 10/30 LOW [facility] CHEMISTRY Potassium Lvl 3.8 meq/L 3.5 - 5.1 10/30 Normal [facility] CHEMISTRY AGAP 14.8 meq/L 10.0 - 10/30 Normal [facility] 20.0 [facility] HEMATOLOGY Platelet 245 K/CMM 133 - 450 10/30 Normal [facility] HEMATOLOGY MPV 9.4 fL 7.4 - 10.4 10/30 Normal [facility] HEMATOLOGY Hct 33.1 % 36.0 - 10/30 LOW [facility] 48.0 [facility] HEMATOLOGY RBC 4.47 M/CMM 4.20 - 10/30 Normal [facility] 5.40 /2012 [facility] HEMATOLOGY WBC 11.0 K/CMM 3.7 - 10.4 10/30 HI [facility] Center HEMATOLOGY Hgb 10.6 g/dL 12.0 - 10/30 [facility] 16.0 /2012 [facility] HEMATOLOGY MCHC 31.9 g/dL 32.0 - 10/30 LOW [facility] 36.0 [facility] Center HEMATOLOGY MCV 74.1 fL 81.0 - 10/30 [facility] 99.0 /2012 [facility] HEMATOLOGY MCH 23.7 pg 27.0 - 10/30 LOW [facility] 31.0 [facility] HEMATOLOGY RDW 16.9 % 11.5 - 10/30 HI [facility] 14.5 /2012 Medical Center HEMATOLOGY PTT 28.1 s 22.9 - 10/30 Normal 25Interpretiv [facility] 35.8 /2012 e Data: [facility] Center Therapeutic Range: 57 - 92 Seconds HEMATOLOGY PT 13.7 s 12.0 - 10/30 Normal [facility] 14.7 /2012 [facility] HEMATOLOGY INR 1.03 0.85 - 10/30 Normal 22Interpretive Data: RECOMMENDED RANGES FOR PROTIME INR: [facility] . 2.0-3.0 for most medical and surgical thromboembolic states. Medical 2.5-3.5 for artificial heart valves and recurrent embolism. Center INR SHOULD BE USED ONLY FOR PATIENTS ON STABLE ANTICOAGULANT THERAPY. HEMATOLOGY Segs-Bands # 7.5 K/CMM 1.5 - 8.1 10/30 Normal [facility] HEMATOLOGY Basophils 0.4 % 0.0 - 1.0 10/30 Normal [facility] HEMATOLOGY Monocytes # 1.1 K/CMM 0.0 - 0.8 10/30 HI [facility] HEMATOLOGY Lymphocytes # 2.1 K/CMM 1.0 - 5.5 10/30 Normal [facility] HEMATOLOGY Microcyte 1+ None Seen 10/30 [facility]N Medical *ABN* Center (10/30/2012 00:20:00) HEMATOLOGY Eosinophils # 0.2 K/CMM 0.0 - 0.5 10/30 Normal [facility] HEMATOLOGY Segs 68.3 % 45.0 - 10/30 Normal [facility] 75.0 [facility] HEMATOLOGY Lymphocytes 18.9 % 20.0 - 10/30 LOW [facility] 40.0 [facility] HEMATOLOGY Monocytes 10.3 % 2.0 - 12.0 10/30 Normal [facility] HEMATOLOGY Eosinophils 2.1 % 0.0 - 4.0 10/30 Normal [facility] CHEMISTRY Magnesium Lvl 2.1 mg/dL 1.8 - 2.4 10/29 Normal [facility] CHEMISTRY Phosphorus 4.1 mg/dL 2.5 - 4.5 10/29 Normal [facility] CHEMISTRY Ca Ion mgdL 3.96 mg/dL 4.65 - 10/29 LOW [facility] 5.20 [facility] CHEMISTRY Ca Norm 1.01 1.16 - 10/29 LOW [place] mMol/L 1. [facility] CHEMISTRY Ca Ion 0.99 1.16 - 10/29 LOW [facility] mMol/L 1. [facility] CHEMISTRY Ca Norm mgdL 4.04 mg/dL 4.65 - 10/29 LOW [facility] 5.20 [facility] CHEMISTRY eGFR 104 10/29 NA 9Result Comment: The eGFR is calculated using the CKD-EPI formula. In most young, healthy individuals the eGFR will be > 90 mL/min/1.73m2. The eGFR declines with age. An eGFR of 60-89 may be normal in [facility] mL/min/1.7 some populations, particularly the elderly, for whom the CKD-EPI formula has not been extensively validated. Use of the eGFR is not recommended in the following populations: [address] Individuals with unstable creatinine concentrations, including [...] 0.7 mg/dL 0.5 - 1.4 10/29 Normal [facility] CHEMISTRY BUN 3 mg/dL 7 - 10/29 LOW [facility] CHEMISTRY Calcium Lvl 8.9 mg/dL 8.5 - 10.5 10/29 Normal [facility] CHEMISTRY Glucose Lvl 90 mg/dL 70 - 99 10/29 Normal 12Interpretive Data: Adult reference range values reflect the clinical guidelines of the [place] [employer]. [facility] CHEMISTRY Chloride Lvl 99 meq/L 95 - 109 10/29 Normal [facility] CHEMISTRY Potassium Lvl 4.4 meq/L 3.5 - 5.1 10/29 Normal [facility] CHEMISTRY CO2 27 meq/L 24 - 32 10/29 Normal [facility] CHEMISTRY Sodium Lvl 139 meq/L 135 - 145 10/29 Normal [facility] CHEMISTRY AGAP 17.4 meq/L 10.0 - 10/29 Normal [facility] 20.0 [facility] HEMATOLOGY PTT 23.7 s 22.9 - 10/29 Normal 26Interpretiv [facility] 35.8 e Data: [facility] Therapeutic Range: 57 - 92 Seconds HEMATOLOGY PT 13.4 s 12.0 - 10/29 Normal [facility] 14.7 [facility] HEMATOLOGY INR 1.00 0.85 - 10/29 Normal Interpretive Data: RECOMMENDED RANGES FOR PROTIME INR: [facility] . 2.0-3.0 for most medical and surgical thromboembolic states. Medical 2.5-3.5 for artificial heart valves and recurrent embolism. Center INR SHOULD BE USED ONLY FOR PATIENTS ON STABLE ANTICOAGULANT THERAPY. HEMATOLOGY RDW 17.1 % 11.5 - 10/29 HI [facility] 14.5 /2012 [facility] HEMATOLOGY MCH 23.8 pg 27.0 - 10/29 [facility] 31.0 /2012 [facility] HEMATOLOGY MCHC 32.2 g/dL 32.0 - 10/29 Normal [facility] 36.0 /2012 [facility] HEMATOLOGY Hct 33.6 % 36.0 - 10/29 [facility] 48.0 /2012 [facility] HEMATOLOGY MCV 74.0 fL 81.0 - 10/29 [facility] 99.0 [facility] HEMATOLOGY Platelet 233 K/CMM 133 - 450 10/29 Normal [facility] HEMATOLOGY MPV 9.9 fL 7.4 - 10.4 10/29 Normal [facility] HEMATOLOGY RBC 4.54 M/CMM 4.20 - 10/29 [facility] 5.40 /2012 [facility] HEMATOLOGY Hgb 10.8 g/dL 12.0 - 10/29 [facility] 16.0 [facility] HEMATOLOGY WBC 9.7 K/CMM 3.7 - 10.4 10/29 Normal [facility] HEMATOLOGY Lymphocytes # 2.6 K/CMM 1.0 - 5.5 10/29 Normal [facility] HEMATOLOGY Basophils 0.7 % 0.0 - 1.0 10/29 Normal [facility] HEMATOLOGY Segs-Bands # 6.0 K/CMM 1.5 - 8.1 10/29 Normal [facility] HEMATOLOGY Monocytes # 0.7 K/CMM 0.0 - 0.8 10/29 Normal [facility] HEMATOLOGY Eosinophils # 0.3 K/CMM 0.0 - 0.5 10/29 Normal [facility] HEMATOLOGY Basophils # 0.1 K/CMM 0.0 - 0.2 10/29 Normal [facility] HEMATOLOGY Microcyte 1+ None Seen 10/29 ABN Medical *ABN* Center (10/29/2012 00:56:00) HEMATOLOGY Segs 61.5 % 45.0 - 10/29 Normal [facility] 75.0 [facility] HEMATOLOGY Lymphocytes 26.8 % 20.0 - 10/29 Normal [facility] 40.0 [facility] HEMATOLOGY Monocytes 7.6 % 2.0 - 12.0 10/29 Normal [facility] HEMATOLOGY Eosinophils 3.4 % 0.0 - 4.0 10/29 Normal [facility] CHEMISTRY Amylase Lvl 27 unit/L 25 - 115 10/28 Normal [facility] CHEMISTRY Lipase Lvl 58 unit/L 73 - 393 10/28 LOW [facility] CHEMISTRY Bili Indirect 0.2 mg/dL 0.0 - 1.0 10/28 Normal [facility] CHEMISTRY Globulin 3.4 g/dL 2.0 - 4.0 10/28 Normal [facility] CHEMISTRY A/G Ratio 0.8 0.7 - 1.6 10/28 Normal [facility] CHEMISTRY AST 24 unit/L 0 - 37 10/28 Normal [facility] CHEMISTRY Bili Total 0.3 mg/dL 0.2 - 1.3 10/28 Normal [facility] CHEMISTRY Total Protein 6.2 g/dL 6.4 - 8.4 10/28 LOW [facility] CHEMISTRY ALT 23 unit/L 0 - 65 10/28 Normal [facility] CHEMISTRY Albumin Lvl 2.8 g/dL 3.5 - 5.0 10/28 LOW [facility] [place] [facility] CHEMISTRY Alk Phos 85 unit/L 39 - 136 10/28 Normal [facility] CHEMISTRY Bili Direct 0.1 mg/dL 0.0 - 0.3 10/28 Normal [facility] HEMATOLOGY PTT 23.9 s 22.9 - 10/28 Normal 27Interpretiv [facility] 35.8 /2012 e Data: [facility] Therapeutic Range: 57 - 92 Seconds HEMATOLOGY PT 13.5 s 12.0 - 10/28 Normal [facility] 14.7 [facility] HEMATOLOGY INR 1.01 0.85 - 10/28 Normal 24Interpretive Data: RECOMMENDED RANGES FOR PROTIME INR: [facility] 1. 2.0-3.0 for most medical and surgical thromboembolic states. Medical 2.5-3.5 for artificial heart valves and recurrent embolism. Center INR SHOULD BE USED ONLY FOR PATIENTS ON STABLE ANTICOAGULANT THERAPY. VIRAL - Influ B Negative 6 Negative 10/28 Normal 6Interpretive [facility] Data: Due Medical (10/27/2012 18:02:02) to the [...] - Influ A Negative Negative 10/28 Normal [facility] SEROLOGY Medical (10/27/2012 18:02:02) Center CHEMISTRY Vitamin D, 16 ng/mL 30 - 100 10/25 LOW 13Interpretive Data: Reference range is based on recommendations in the Endocrine [facility] 25-OH, /2013 Society Clinical Practice Guideline (J Clin Endocrinol Metab Medical 2011;96:2326-1011) Center CHEMISTRY Hgb A1C 8.4 % 10/25 NA 21Interpretive Data: HbA1C% eAG( mg/dL) Interpretation 6.0 126 Very good control [facility] 6.5 140 Very good control Center 7.0 154 Good Control 7.5 169 Good Control 8.0 183 Marginal Control, take action to lower 8.5 197 Marginal Control, take action to lower 9.0 212 Poor Control, take action to lower 9.5 226 Poor Control, take action to lower 10.0 240 Poor Control, take action to lower CHEMISTRY LDL 87 mg/dL 0 - 129 10/25 Normal [facility] CHEMISTRY HDL 35 mg/dL >=35 10/25 Normal [facility] CHEMISTRY Trig 101 mg/dL 0 - 200 10/25 Normal [facility] CHEMISTRY Chol 142 mg/dL 120 - 200 10/25 Normal [facility] CHEMISTRY CHD Risk 4.06 3.90 - 10/25 Normal [facility] 5.80 [facility] CHEMISTRY Troponin-I 5.43 ng/mL 0.00 - 10/25 CRIT 18Result [facility] 0.40 Comment: Medical Critical Center Result(s) called to Jelani Rasmussen at 10/25/2012 00:47:48 VASCULAR SURGERY PHYSICIAN by ISAAC. Read back OK. CHEMISTRY Troponin-T 0.693 0.000 - 10/25 CRIT 15Result [facility] ng/mL 0.100 /2012 Comment: Medical Critical Center Result(s) called to daisy otoole at 10/25/2012 01:18:09 VASCULAR SURGERY PHYSICIAN by tac. Read back OK. HEMATOLOGY Basophils # 0.2 K/CMM 0.0 - 0.2 10/25 Normal [facility] HEMATOLOGY Plt Morph Normal 10/25 Normal Medical (10/25/2012 00:15:00) Center CHEMISTRY ALT 15 unit/L 0 - 65 10/24 Normal [facility] CHEMISTRY Albumin Lvl 2.7 g/dL 3.5 - 5.0 10/24 LOW [facility] CHEMISTRY Bili Total 0.5 mg/dL 0.2 - 1.3 10/24 Normal [facility] CHEMISTRY Alk Phos 83 unit/L 39 - 136 10/24 Normal [facility] CHEMISTRY Bili Direct 0.2 mg/dL 0.0 - 0.3 10/24 Normal [facility] CHEMISTRY Total Protein 5.8 g/dL 6.4 - 8.4 10/24 LOW [facility] CHEMISTRY AST 41 unit/L 0 - 37 10/24 HI [facility] CHEMISTRY Bili Indirect 0.3 mg/dL 0.0 - 1.0 10/24 Normal [facility] CHEMISTRY Globulin 3.1 g/dL 2.0 - 4.0 10/24 Normal [facility] CHEMISTRY A/G Ratio 0.9 0.7 - 1.6 10/24 Normal [facility] CHEMISTRY POC A Mode NC-3LPM 10/24 NA [facility] CHEMISTRY POC A HCO3 19 mMol/L 22 - 26 10/24 LOW [facility] CHEMISTRY POC A O2 Sat 98.0 % 95.0 - 10/24 Normal [facility] 100.0 [facility] CHEMISTRY POC A BE -6 mMol/L -2-2 - 2 10/24 LOW [facility] CHEMISTRY POC A PO2 103 mm[Hg] 80 - 100 10/24 HI [facility] CHEMISTRY POC A pH 7.35 7.35 - 10/24 [facility] 7.45 [facility] CHEMISTRY POC A PCO2 34 mm[Hg] 35 - 45 10/24 LOW Medical Center CHEMISTRY POC A Temp 37.0 Abby 10/24 NA Medical Center CHEMISTRY POC A Source ART 10/24 NA [facility] Center CHEMISTRY Troponin-T 0.688 0.000 - 10/24 CRIT 16Result [facility] ng/mL 0.100 Comment: Medical Critical Center Result(s) called to Maribel Bustos at 10/24/2012 13:23:46 VASCULAR SURGERY PHYSICIAN by lwb . Read back OK. CHEMISTRY Troponin-I 7.61 ng/mL 0.00 - 10/24 CRIT 19Result [facility] 0.40 Comment: Medical Critical Center Result(s) called to mariana bustos at _ 10/24/2012 13:37:22 CSTby_lss. Read back OK. CHEMISTRY Total CK 150 unit/L 12 - 10/24 Normal [facility] Center CHEMISTRY Lactic Acid 0.7 mMol/L 0.5 - 2.2 10/24 Normal [facility] Lvl Medical Center CHEMISTRY CK MB Index 11.0 0.0 - 2.5 10/24 HI Medical Center CHEMISTRY CK MB 16.5 ng/mL 0.5 - 3.6 10/24 HI Medical Center CHEMISTRY Troponin-T 0.750 0.000 - 10/24 CRIT 17Result [facility] ng/mL 0.100 Comment: Medical Critical Center Result(s) called to Lyn King at 10/24/2012 09:52:38 VASCULAR SURGERY PHYSICIAN by lwb . Read back OK. CHEMISTRY Troponin-I 7.60 ng/mL 0.00 - 10/24 CRIT 20Result [facility] 0.40 Comment: Medical Critical Center Result(s) called to romero beltre at _10/24/2012 09:50:18 VASCULAR SURGERY PHYSICIAN by_lss. Read back OK. CHEMISTRY Total CK [...] 0.6 mMol/L 0.5 - 2.2 10/24 Normal [facility] [place] Medical Center CHEMISTRY POC V O2 Sat [...] Center CHEMISTRY Ketone 0.93 <=0.27 10/24 HI [facility] Quantitative mmol/L Medical Center Microbiolog Culture: 10/24 y Urine Medical Center CHEMISTRY Lactic Acid 0.6 mMol/L 0.5 - 2.2 10/23 Normal [facility] Medical Center Microbiolog Culture: 10/23 y Blood Medical [...] -5 mMol/L -2-2 - 2 10/23 LOW [facility] CHEMISTRY POC A O2 Sat 99.0 % 95.0 - 10/23 [facility] 100.0 [facility] CHEMISTRY POC A Hct 35.0 % 36.0 - 10/23 LOW [facility] 48.0 [facility] CHEMISTRY POC A HCO3 20 mMol/L 22 - 26 10/23 LOW [facility] CHEMISTRY POC A PCO2 36 mm[Hg] 35 - 45 10/23 Normal [facility] CHEMISTRY POC A LA 0.6 mMol/L 0.5 - 2.2 10/23 Normal [facility] CHEMISTRY POC A Ca Ion 1.20 1.16 - 10/23 [facility] mMol/L 1.30 [facility] CHEMISTRY POC A Na 133 meq/L 135 - 145 10/23 LOW [facility] CHEMISTRY POC A K 3.8 meq/L 3.5 - 5.1 10/23 Normal [facility] CHEMISTRY A/G Ratio 0.8 0.7 - 1.6 10/23 Normal [facility] CHEMISTRY AST 90 unit/L 0 - 37 10/23 HI [facility] CHEMISTRY Globulin 3.9 g/dL 2.0 - 4.0 10/23 Normal [facility] CHEMISTRY B/C Ratio 16 6 - 25 10/23 Normal [facility] CHEMISTRY Total Protein 7.2 g/dL 6.4 - 8.4 10/23 Normal [facility] CHEMISTRY Bili Total 0.5 mg/dL 0.2 - 1.3 10/23 Normal [facility] CHEMISTRY Albumin Lvl 3.3 g/dL 3.5 - 5.0 10/23 LOW [facility] CHEMISTRY Alk Phos 94 unit/L 39 - 136 10/23 Normal [facility] CHEMISTRY ALT 23 unit/L 0 - 65 10/23 Normal [facility] CHEMISTRY Osmolality 292 280 - 300 10/23 Normal [facility] mOsm/kg [facility] CHEMISTRY Myoglobin 128 ng/mL 25 - 72 10/23 [facility] Microbiolog Culture: 10/23 [facility] y [facility] Screen BACTERIAL - MRSA by PCR Positive 1, 2 10/23 ABN 2Interpretive Data: Interpretive Data: The [employer] LightCycler MRSA assay is a qualitative test for the direct detection of nasal colonization with methicillin-resistant Staphylococcus aureus (MRSA) to aid [facility] in the prevention and control of MRSA infections in healthcare settings. A positive result does not indicate an infection or require treatment. A negative result does not exclude colonization or infection. Medical *[facility]* Center The polymerase chain reaction (PCR) assay detects a proprietary sequence indicative of the integration of the SCCmec cassette into the Staphylococcus aureus chromosome, indicating the presence of MRSA D (10/23/2012 11:37:00) NA. The assay utilizes FDA cleared IVD reagents. Performance characteristics have been verified by the Molecular Diagnostic Laboratory within the [facility]. The Molecular Diagnostic Labor atory is authorized under the Clinical Laboratory Improvement Amendment of 1988 (CLIA-88) to perform high complexity testing. CHEMISTRY Osmolality 309 280 - 300 10/23 [facility] mOsm/kg [facility] CHEMISTRY POC A Hct 37.0 % 36.0 - 10/23 [facility] 48.0 [facility] CHEMISTRY POC A Na 129 meq/L 135 - 145 10/23 LOW [facility] CHEMISTRY POC A LA 1.0 mMol/L 0.5 - 2.2 10/23 Normal [facility] CHEMISTRY POC A K 4.5 meq/L 3.5 - 5.1 10/23 [facility] CHEMISTRY POC A Glu null 70 - 99 10/23 [facility] CHEMISTRY POC A Ca Ion 1.18 1.16 - 10/23 [facility] mMol/L 1.30 [facility] CHEMISTRY POC A PCO2 30 mm[Hg] 35 - 45 10/23 CRIT [facility] CHEMISTRY POC A PO2 123 mm[Hg] 80 - 100 10/23 [facility] CHEMISTRY POC A Temp 37.0 Abby 10/23 NA [facility] CHEMISTRY POC A HCO3 14 mMol/L 22 - 26 10/23 [facility] CHEMISTRY POC A Source ART 10/23 NA [facility] CHEMISTRY POC A pH 7.27 7.35 - 10/23 [facility] 7.45 [facility] CHEMISTRY POC A BE -12 mMol/L -2-2 - 2 10/23 [facility] CHEMISTRY POC A O2 Sat 98.0 % 95.0 - 10/23 [facility] 100.0 [facility] CHEMISTRY Bili Direct 0.4 mg/dL 0.0 - 0.3 10/23 HI [facility] CHEMISTRY Lipase Lvl 54 unit/L 73 - 393 10/23 LOW [facility] CHEMISTRY Amylase Lvl 28 unit/L 25 - 115 10/23 Normal [facility] CHEMISTRY B/C Ratio 10 6 - 25 10/23 Normal [facility] BLOOD BANK Antibody Scrn Negative 10/23 Normal [facility] Medical (10/23/2012 01:00:00) Center BLOOD BANK ABO/Rh A POS 10/23 Unknown [facility] URINALYSIS UA <=1.0 0.1 - 1.0 10/23 NA [facility] Urobilinogen mg/dL Medical
*NA*< Center br/>(10/23 00:01:00) <sup> </sup> URINALYSIS UA Sq Epi Moderate /LPF Few 10/23 ABN Medical *ABN* Center (10/23/2012 00:01:00) URINALYSIS UA Leuk Est Negative Negative 10/23 Normal [facility] (10/23/2012 00:01:00) Center URINALYSIS UA Nitrite Negative Negative 10/23 Normal [facility] (10/23/2012 00:01:00) Center URINALYSIS UA Blood Negative Negative 10/23 Normal [facility] (10/23/2012 00:01:00) Center URINALYSIS UA Glucose >=1000 mg/dL Negative 10/23 ABN Medical *ABN* [place] (10/23/2012 00:01:00) URINALYSIS UA Protein 10 mg/dL Negative 10/23 ABN Medical *ABN* [place] (10/23/2012 00:01:00) URINALYSIS UA pH 5.0 5.0 - 8.0 10/23 Normal [facility] URINALYSIS UA WBC 1 /HPF 0 - 5 10/23 Normal [facility] URINALYSIS UA Bili Negative Negative 10/23 NA Medical *NA* Center (10/23/2012 00:01:00) URINALYSIS UA Ketones >=150 mg/dL Negative 10/23 ABN [facility] Medical *ABN* Center (10/23/2012 00:01:00) URINALYSIS UA Spec Grav 1.015 <=1.030 10/23 Normal [facility] URINALYSIS UA Turbidity Clear Clear 10/23 Normal Medical (10/23/2012 00:01:00) Center URINALYSIS UA Color Light Yellow Yellow 10/23 NA Medical *NA* Center (10/23/2012 00:01:00) BEDSIDE Gluc POC 265 mg/dL 70 - 99 10/08 HI 1Interpretive [facility] GLUCOSE Lifmo Data: [facility] TESTING [facility] Center Upper Reportable Limit: 200 mg/dL. BEDSIDE Comment1 Notify 10/08 Located within [facility] GLUCOSE RN/MD [facility] TESTING Center BEDSIDE Comment1 Notify 10/08 NA [facility] GLUCOSE RN/MD [facility] TESTING Center BEDSIDE Gluc POC 204 mg/dL 70 - 99 10/08 HI 2Interpretive [facility] GLUCOSE Lifmo Data: [facility] TESTING [facility] Center Upper Reportable Limit: 200 mg/dL. CHEMISTRY Phosphorus 2.7 mg/dL 2.5 - 4.5 10/08 Normal [facility] CHEMISTRY Magnesium Lvl 1.6 mg/dL 1.8 - 2.4 10/08 LOW 2012 [facility] CHEMISTRY Ca Ion 1.17 1.16 - 02 Normal [facility] mMol/L 1. [facility] CHEMISTRY Ca Norm 1.18 1.16 - 10/08 Normal [facility] mMol/L 1. [facility] CHEMISTRY Ca Ion mgdL 4.68 mg/dL 4.65 - 02 Normal [facility] 5.20 [facility] CHEMISTRY Ca Norm mgdL 4.72 mg/dL 4.65 - 02 Normal [facility] 5.20 [facility] CHEMISTRY AGAP 17.6 meq/L 10.0 - 10/08 Normal [facility] 20.0 [facility] CHEMISTRY eGFR 109 10/08 NA 4Result Comment: The eGFR is calculated using the CKD-EPI formula. In most young, healthy individuals the eGFR will be > 90 mL/min/1.73m2. The eGFR declines with age. An eGFR of 60-89 may be normal in [facility] mL/min/1.7 some populations, particularly the elderly, for whom the CKD-EPI formula has not been extensively validated. Use of the eGFR is not recommended in the following populations: [place] [address] Center Individuals with unstable creatinine concentrations, including [...] 24 meq/L 24 - 32 10/08 Normal [facility] CHEMISTRY Calcium Lvl 8.5 mg/dL 8.5 - 10.5 10/08 Normal [facility]2012 [facility] CHEMISTRY Potassium Lvl 3.6 meq/L 3.5 - 5.1 10/08 Normal [facility]2012 [facility] CHEMISTRY Chloride Lvl 96 meq/L 95 - 109 10/[address] CHEMISTRY Creatinine 0.6 mg/dL 0.5 - 1.4 10/08 Normal [facility] CHEMISTRY Sodium Lvl 134 meq/L 135 - 145 10/[address] CHEMISTRY Glucose Lvl 129 mg/dL 70 - 99 10/08 HI 7Interpretive Data: Adult reference range values reflect the clinical guidelines of the [place] [employer]. [facility] CHEMISTRY BUN 4 mg/dL 7 - 22 10/[address] HEMATOLOGY Monocytes # 1.1 K/CMM 0.0 - 0.8 10/08 HI [facility]2012 [facility] HEMATOLOGY Eosinophils # 0.3 K/CMM 0.0 - 0.5 10/08 Normal [facility]2012 [facility] HEMATOLOGY Basophils # 0.1 K/CMM 0.0 - 0.2 10/08 Normal [facility]2012 [facility] HEMATOLOGY Microcyte 1+ None Seen 10/08 ABN Medical *ABN* Center (10/08/2012 03:57:00) HEMATOLOGY Segs 55.7 % 45.0 - 02 Normal [facility] 75.0 [facility] HEMATOLOGY Lymphocytes 31.3 % 20.0 - 02 Normal [facility] 40.0 [facility] HEMATOLOGY Monocytes 10.0 % 2.0 - 12.0 10/08 Normal [facility]2012 [facility] HEMATOLOGY Eosinophils 2.5 % 0.0 - 4.0 02 Normal [facility] HEMATOLOGY Segs-Bands # 6.1 K/CMM 1.5 - 8.1 02/ Normal [facility] HEMATOLOGY Basophils 0.5 % 0.0 - 1.0 02/ Normal [facility] HEMATOLOGY Lymphocytes # 3.4 K/CMM 1.0 - 5.5 10/08 Normal [facility] HEMATOLOGY RDW 16.9 % 11.5 - 02 HI [facility] 14.5 /2012 [facility] HEMATOLOGY Platelet 218 K/CMM 133 - 450 02 Normal [facility] HEMATOLOGY WBC 10.9 K/CMM 3.7 - 10.4 10/08 HI [facility] HEMATOLOGY RBC 4.35 M/CMM 4.20 - 10/08 Normal [facility] 5.40 /2012 [facility] HEMATOLOGY MPV 9.7 fL 7.4 - 10.4 10/08 Normal [facility] HEMATOLOGY Hgb 10.4 g/dL 12.0 - 10/08 LOW [facility] 16.0 [facility] HEMATOLOGY Hct 32.7 % 36.0 - 02 [facility] 48.0 /2012 [facility] HEMATOLOGY MCHC 31.8 g/dL 32.0 - 02 [facility] 36.0 /2012 [facility] HEMATOLOGY MCV 75.2 fL 81.0 - 02 [facility] 99.0 /2012 [facility] HEMATOLOGY MCH 23.9 pg 27.0 - 10/08 [facility] 31.0 [facility] BEDSIDE Comment1 Notify 10/08 NA [facility] GLUCOSE RN/MD /2012 Medical TESTING Center BEDSIDE Gluc POC 247 mg/dL 70 - 99 10/08 HI 3Interpretive [facility] GLUCOSE Lifscn Data: Medical TESTING Center Upper Reportable Limit: 200 mg/dL. CHEMISTRY Magnesium Lvl 2.1 mg/dL 1.8 - 2.4 10/07 Normal [facility] CHEMISTRY Ca Norm 1.16 1.16 - 02 Normal [facility] mMol/L 1.30 [facility] CHEMISTRY Ca Ion mgdL 4.72 mg/dL 4.65 - 10/07 Normal [facility] 5. [facility] CHEMISTRY Ca Norm mgdL 4.64 mg/dL 4.65 - 10/07 LOW [facility] 5. [facility] CHEMISTRY Ca Ion 1.18 1.16 - 02 Normal [facility] mMol/L 1.30 [facility] CHEMISTRY Phosphorus 2.6 mg/dL 2.5 - 4.5 10/07 Normal [facility] CHEMISTRY Calcium Lvl 8.1 mg/dL 8.5 - 10.5 10/07 LOW [facility] CHEMISTRY AGAP 19.4 meq/L 10.0 - 10/07 Normal [facility] 20.0 [facility] CHEMISTRY eGFR 116 10/07 NA 5Result Comment: The eGFR is calculated using the CKD-EPI formula. In most young, healthy individuals the eGFR will be > 90 mL/min/1.73m2. The eGFR declines with age. An eGFR of 60-89 may be normal in [facility] mL/min/1.7 some populations, particularly the elderly, for whom the CKD-EPI formula has not been extensively validated. Use of the eGFR is not recommended in the following populations: [place] [address] Center Individuals with unstable creatinine concentrations, including [...] 6 mg/dL 7 - 22 10/07 LOW [facility] CHEMISTRY Glucose Lvl 99 mg/dL 70 - 99 10/07 Normal 8Interpretive Data: Adult reference range values reflect the clinical guidelines of the [place] [employer]. [facility] CHEMISTRY Creatinine 0.5 mg/dL 0.5 - 1.4 10/07 Normal [facility] Lvl [facility] CHEMISTRY Potassium Lvl 3.4 meq/L 3.5 - 5.1 10/07 LOW [facility] CHEMISTRY Sodium Lvl 135 meq/L 135 - 145 10/07 Normal [facility] CHEMISTRY CO2 24 meq/L 24 - 32 10/07 Normal [facility] CHEMISTRY Chloride Lvl 95 meq/L 95 - 109 10/07 Normal [facility] HEMATOLOGY MCHC 31.8 g/dL 32.0 - 10/07 LOW [facility] 36.0 [facility] HEMATOLOGY MCH 24.1 pg 27.0 - 02 [facility] 31.0 /2012 [facility] HEMATOLOGY MCV 75.7 fL 81.0 - 02 [facility] 99.0 /2012 [facility] HEMATOLOGY Hct 31.0 % 36.0 - 02 [facility] 48.0 /2012 [facility] HEMATOLOGY Hgb 9.9 g/dL 12.0 - 02/ [facility] 16.0 /2012 [facility] HEMATOLOGY MPV 9.1 fL 7.4 - 10.4 02 Normal [facility] HEMATOLOGY Platelet 222 K/CMM 133 - 450 02 Normal [facility] HEMATOLOGY RDW 16.8 % 11.5 - 02 [facility] 14.5 /2012 [facility] HEMATOLOGY RBC 4.10 M/CMM 4.20 - 02 [facility] 5.40 /2012 [facility] HEMATOLOGY WBC 13.8 K/CMM 3.7 - 10.4 02 [facility] HEMATOLOGY Segs-Bands # 9.6 K/CMM 1.5 - 8.1 10/07 [facility] HEMATOLOGY Basophils 0.3 % 0.0 - 1.0 02 Normal [facility] HEMATOLOGY Eosinophils 1.0 % 0.0 - 4.0 10/07 [facility] HEMATOLOGY Microcyte 1+ None Seen 10/07 [facility] (10/07/2012 03:25:00) HEMATOLOGY Lymphocytes # 2.9 K/CMM 1.0 - 5.5 10/07 [facility] HEMATOLOGY Eosinophils # 0.1 K/CMM 0.0 - 0.5 02 [facility] HEMATOLOGY Monocytes # 1.2 K/CMM 0.0 - 0.8 02 [facility] HEMATOLOGY Monocytes 8.8 % 2.0 - 12.0 10/07 [facility] HEMATOLOGY Lymphocytes 20.8 % 20.0 - 02 [facility] 40.0 [facility] HEMATOLOGY Segs 69.1 % 45.0 - 02 Normal [facility] 75.0 [facility] URINALYSIS UA Glucose 500mg/dL 10/06 NA [facility] URINALYSIS UA <=1.0 0.1 - 1.0 10/06 NA [facility] Urobilinogen mg/dL /2012 Medical
*NA*< Center br/>(10/06 11:42:00) <sup> </sup> URINALYSIS Micro? Performed 10/06 NA Medical *NA* Center (10/06/2012 11:42:00) URINALYSIS UA [place] Yeast Moderate /HPF None Seen 10/06 [facility] *ABN* Center (10/06/2012 11:42:00) URINALYSIS UA RBC 3 /HPF 0 - 2 10/06 [facility] URINALYSIS UA Bacteria Many /HPF None Seen 10/06 [facility] *ABN* [place] (10/06/2012 11:42:00) URINALYSIS UA WBC 3 /HPF 0 - 5 10/06 Normal [facility] URINALYSIS UA Leuk Est Negative Negative 10/06 Normal [facility] (10/06/2012 11:42:00) Center URINALYSIS UA Nitrite Negative Negative 10/06 Normal [facility] (10/06/2012 11:42:00) Center URINALYSIS UA Sq Epi Many /LPF Few 10/06 [facility] *ABN* [place] (10/06/2012 11:42:00) URINALYSIS UA Bili Negative Negative 10/06 NA [facility] *NA* Center (10/06/2012 11:42:00) URINALYSIS UA Blood Negative Negative 10/06 Normal [facility] (10/06/2012 11:42:00) Center URINALYSIS UA pH 5.5 5.0 - 8.0 10/06 Normal [facility] URINALYSIS UA Protein 20 mg/dL Negative 10/06 ABN [facility] *ABN* Center (10/06/2012 11:42:00) URINALYSIS UA Ketones >=150 mg/dL Negative 10/06 ABN [facility] *ABN* Center (10/06/2012 11:42:00) URINALYSIS UA Color Yellow Yellow 10/06 NA Medical *NA* Center (10/06/2012 11:42:00) URINALYSIS UA Turbidity Slight Clear 10/06 ABN Medical *ABN* Center (10/06/2012 11:42:00) URINALYSIS UA Spec Grav 1.011 <=1.030 10/06 Normal [facility] URINALYSIS UA Mucus Few /LPF None [facility] 10[facility]06 [facility] [place] (10/06/2012 11:42:00) Microbiolog Culture: 10/06 [facility] y [facility] CHEMISTRY Phosphorus 2.5 mg/dL 2.5 - 4.5 10/06 Normal [facility] CHEMISTRY Magnesium Lvl 1.5 mg/dL 1.8 - 2.4 10/06 LOW [facility] CHEMISTRY eGFR 76 10/06 NA 6Result Comment: The eGFR is calculated using the CKD-EPI formula. In most young, healthy individuals the eGFR will be > 90 mL/min/1.73m2. The eGFR declines with age. An eGFR of 60-89 may be normal in [facility] mL/min/1. some populations, particularly the elderly, for whom the CKD-EPI formula has not been extensively validated. Use of the eGFR is not recommended in the following populations: [address] Individuals with unstable creatinine concentrations, including [...] 3.9 meq/L 3.5 - 5.1 10/06 Normal [facility] CHEMISTRY Chloride Lvl 97 meq/L 95 - 109 10/06 Normal [facility] CHEMISTRY Calcium Lvl 8.3 mg/dL 8.5 - 10.5 10/06 LOW [facility] CHEMISTRY CO2 22 meq/L 24 - 32 10/06 LOW [facility] CHEMISTRY Glucose Lvl 234 mg/dL 70 - 99 10/06 HI 9Interpretive Data: Adult reference range values reflect the clinical guidelines of the [place] [employer]. [facility] CHEMISTRY Creatinine 0.9 mg/dL 0.5 - 1.4 10/06 Normal [facility] CHEMISTRY BUN 9 mg/dL 7 - 22 10/06 Normal [facility] CHEMISTRY Sodium Lvl 134 meq/L 135 - 145 10/06 LOW [facility] CHEMISTRY AGAP 18.9 meq/L 10.0 - 10/06 Normal [place] 20.0 [facility] HEMATOLOGY Segs-Bands # 13.3 K/CMM 1.5 - 8.1 10/06 HI [facility] HEMATOLOGY Basophils 0.2 % 0.0 - 1.0 10/06 Normal [facility] HEMATOLOGY Eosinophils 0.1 % 0.0 - 4.0 10/06 Normal [facility] HEMATOLOGY Monocytes 6.7 % 2.0 - 12.0 10/06 Normal [facility] HEMATOLOGY Segs 81.7 % 45.0 - 10/06 [facility] [place] 75.0 [facility] HEMATOLOGY Lymphocytes 11.3 % 20.0 - 10/06 [facility] [place] 40.0 /2012 [facility] HEMATOLOGY Microcyte 1+ None Seen 10/06 ABN Medical *ABN* Center (10/06/2012 04:25:00) HEMATOLOGY Monocytes # 1.1 K/CMM 0.0 - 0.8 10/06 HI [facility] HEMATOLOGY Lymphocytes # 1.8 K/CMM 1.0 - 5.5 10/06 Normal [facility] HEMATOLOGY RBC 4.28 M/CMM 4.20 - 10/06 Normal [place] 5.40 /2012 [facility] HEMATOLOGY WBC 16.3 K/CMM 3.7 - 10.4 10/06 [facility] HEMATOLOGY Hgb 10.3 g/dL 12.0 - 10/06 [facility] [place] 16.0 [facility] HEMATOLOGY Hct 32.6 % 36.0 - 10/06 [facility] [place] 48.0 /2012 [facility] HEMATOLOGY MCH 24.0 pg 27.0 - 10/06 LOW [place] 31.0 [facility] HEMATOLOGY MCV 76.1 fL 81.0 - 10/06 [facility] [place] 99.0 /2012 [facility] HEMATOLOGY MCHC 31.5 g/dL 32.0 - 10/06 [facility] [place] 36.0 [facility] HEMATOLOGY RDW 17.2 % 11.5 - 10/06 [facility] [place] 14.5 [facility] HEMATOLOGY Platelet 248 K/CMM 133 - 450 10/06 Normal [facility] HEMATOLOGY MPV 9.5 fL 7.4 - 10.4 10/06 Normal [facility] CHEMISTRY Ca Norm 1.07 1.16 - 10/05 LOW [facility] mMol/L 1. [facility] CHEMISTRY Ca Ion mgdL 4.36 mg/dL 4.65 - 10/05 LOW [place] 5. [facility] CHEMISTRY Ca Norm mgdL 4.28 mg/dL 4.65 - 10/05 LOW [facility] 5. [facility] CHEMISTRY Ca Ion 1.09 1.16 - 10/05 LOW [facility] mMol/L . [facility] HEMATOLOGY Basophils # 0.1 K/CMM 0.0 - 0.2 10/05 Normal [facility] HEMATOLOGY Eosinophils # 0.1 K/CMM 0.0 - 0.5 10/05 Normal [facility] CHEMISTRY U Preg Negative Negative 10/03 Normal [facility] (10/03/2012 06:31:00) [place] BLOOD BANK ABO/Rh A POS 10/03 Unknown [facility] BLOOD BANK Antibody Scrn Negative 10/03 Normal [facility] Medical (10/03/2012 06:00:00) Center CHEMISTRY Total Protein 7.8 g/dL 6.4 - 8.4 09/23 Normal [facility] CHEMISTRY AST 31 unit/L 0 - 37 09/23 Normal [facility] CHEMISTRY Bili Total 0.3 mg/dL 0.2 - 1.3 09/23 Normal [facility] CHEMISTRY ALT 50 unit/L 0 - 65 09/23 Normal [facility] CHEMISTRY Albumin Lvl 3.6 g/dL 3.5 - 5.0 09/23 Normal [facility] CHEMISTRY Alk Phos 150 unit/L 39 - 136 09/23 HI [facility] CHEMISTRY B/C Ratio 21 6 - 25 09/23 Normal [facility] CHEMISTRY Globulin 4.2 g/dL 2.0 - 4.0 09/23 [facility] CHEMISTRY A/G Ratio 0.9 0.7 - 1.6 09/23 Normal [facility] HEMATOLOGY Hypochrom Slight None Seen 09/23 Normal Medical (09/23/2012 12:35:00) Center HEMATOLOGY Elliptocyte Slight None Seen 09/23 ABN Medical *ABN* Center (09/23/2012 12:35:00) HEMATOLOGY Basophils # 0.1 K/CMM 0.0 - 0.2 09/23 Normal [facility] HEMATOLOGY Plt Morph Normal 09/23 Normal [facility] (09/23/2012 12:35:00) Center URINALYSIS UA <=1.0 0.1 - 1.0 09/23 NA [facility] Urobilinogen mg/dL /2012 Medical
*NA*< Center br/>(09/23 12:35:00) <sup> </sup> URINALYSIS UA Nitrite Negative Negative 09/23 Normal [facility] (09/23/2012 12:35:00) Center URINALYSIS UA Blood Negative Negative 09/23 Normal [facility] (09/23/2012 12:35:00) Center URINALYSIS UA Leuk Est Negative Negative 09/23 Normal [facility] (09/23/2012 12:35:00) Center URINALYSIS Micro? Not Indicated 09/23 NA [facility] *NA* [place] (09/23/2012 12:35:00) URINALYSIS UA Ketones Negative mg/dL Negative 09/23 [facility] *NA* [place] (09/23/2012 12:35:00) URINALYSIS UA Bili Negative Negative 09/23 [facility] *NA* [place] (09/23/2012 12:35:00) URINALYSIS UA Protein Negative mg/dL Negative 09/23 Normal [facility] (09/23/2012 12:35:00) Center URINALYSIS UA pH 5.0 5.0 - 8.0 09/23 Normal [facility] Center URINALYSIS UA Glucose Negative mg/dL Negative 09/23 [facility] *NA* [place] (09/23/2012 12:35:00) URINALYSIS UA Color Light Yellow Yellow 09/23 NA Medical *NA* [place] (09/23/2012 12:35:00) URINALYSIS UA Spec Grav 1.004 <=1.030 09/23 Normal [facility] URINALYSIS UA Turbidity Clear Clear 09/23 Normal Medical (09/23/2012 12:35:00) Center BEDSIDE Gluc POC 153 mg/dL 70 - 99 06/28 HI 1Interpretive [facility] GLUCOSE Lifsc Data: Medical TESTING Center Upper Reportable Limit: 200 mg/dL. CHEMISTRY U Preg Negative Negative 06/28 Normal Medical (06/28/2012 07:27:00) Center Vital Signs Vital Sign Value Date Comments Source Systolic (mm Hg) 124 08/13/2013 [facility] Respitory Rate 18 08/13/2013 [facility] Temperature Oral (F) 98.8 F 08/13/2013 [facility] Heart Rate 102 08/13/2013 [facility] Diastolic (mm Hg) 46 08/13/2013 [facility] Systolic (mm Hg) 107 08/13/2013 [facility] Respitory Rate 18 08/13/2013 [facility] Diastolic (mm Hg) 63 08/13/2013 [facility] Heart Rate 103 08/13/2013 [facility] Heart Rate 105 08/13/2013 [facility] Respitory Rate 18 08/13/2013 [facility] Systolic (mm Hg) 117 08/13/2013 [facility] Diastolic (mm Hg) 70 08/13/2013 [facility] Weight 81.818 08/13/2013 [facility] Height 162.56 cm 08/13/2013 [facility] Temperature Oral (F) 98.4 F 08/13/2013 [facility] Diastolic (mm Hg) 61 07/15/2013 [facility] Temperature Oral (F) 97.7 F 07/15/2013 [facility] Systolic (mm Hg) 117 07/15/2013 [facility] Respitory Rate 18 07/15/2013 [facility] Heart Rate 90 07/15/2013 [facility] Respitory Rate 18 07/14/2013 [facility] Heart Rate 104 07/14/2013 [facility] Diastolic (mm Hg) 46 07/14/2013 [facility] Systolic (mm Hg) 91 07/14/2013 [facility] Diastolic (mm Hg) 61 07/14/2013 [facility] Systolic (mm Hg) 95 07/14/2013 [facility] Respitory Rate 18 07/14/2013 [facility] Heart Rate 120 07/14/2013 [facility] Temperature Oral (F) 97.5 F 07/14/2013 [facility] Temperature Oral (F) 97.6 F 07/14/2013 [facility] Height 162.56 cm 07/12/2013 [facility] Weight 86.364 07/12/2013 [facility] Temperature Oral (F) 97.1 F 04/03/2013 [facility] Respitory Rate 18 04/03/2013 [facility] Heart Rate 79 04/03/2013 [facility] Diastolic (mm Hg) 66 04/03/2013 [facility] Systolic (mm Hg) 94 04/03/2013 [facility] Diastolic (mm Hg) 28 04/03/2013 [facility] Systolic (mm Hg) 116 04/03/2013 [facility] Respitory Rate 20 04/03/2013 [facility] Heart Rate 100 04/03/2013 [facility] Temperature Oral (F) 97.0 F 04/03/2013 [facility] Height 162.56 cm 04/03/2013 [facility] Weight 90 04/03/2013 [facility] Height 162.56 cm 04/02/2013 [facility] Weight 90 04/02/2013 [facility] Systolic (mm Hg) 132 03/09/2013 [facility] Diastolic (mm Hg) 72 03/09/2013 [facility] Heart Rate 114 03/09/2013 [facility] Temperature Oral (F) 97.7 F 03/09/2013 [facility] Respitory Rate 20 03/09/2013 [facility] Temperature Oral (F) 97.7 F 03/09/2013 [facility] Heart Rate 108 03/09/2013 [facility] Systolic (mm Hg) 143 03/09/2013 [facility] Respitory Rate 18 03/09/2013 [facility] Diastolic (mm Hg) 81 03/09/2013 [facility] Heart Rate 115 03/09/2013 [facility] Diastolic (mm Hg) 70 03/09/2013 [facility] Systolic (mm Hg) 153 03/09/2013 [facility] Respitory Rate 18 03/09/2013 [facility] Temperature Oral (F) 97.5 F 03/09/2013 [facility] Weight 90 03/07/2013 [facility] Height 162.56 cm 03/07/2013 [facility] Height 162.56 cm 03/06/2013 [facility] Weight 90 03/06/2013 [facility] Systolic (mm Hg) 127 12/07/2012 [facility] Diastolic (mm Hg) 49 12/07/2012 [facility] Heart Rate 90 12/07/2012 [facility] Temperature Oral (F) 98.3 F 12/07/2012 [facility] Respitory Rate 18 12/07/2012 [facility] Systolic (mm Hg) 104 12/07/2012 [facility] Temperature Oral (F) 98.6 F 12/07/2012 [facility] Respitory Rate 18 12/07/2012 [facility] Heart Rate 78 12/07/2012 [facility] Diastolic (mm Hg) 57 12/07/2012 [facility] Heart Rate 89 12/07/2012 [facility] Temperature Oral (F) 97.6 F 12/07/2012 [facility] Respitory Rate 18 12/07/2012 [facility] Systolic (mm Hg) 105 12/07/2012 [facility] Diastolic (mm Hg) 51 12/07/2012 [facility] Weight 100 11/29/2012 [facility] Height 162.56 cm 11/29/2012 [facility] Weight 100.568 11/29/2012 [facility] Height 162.56 cm 11/29/2012 [facility] Weight 101.364 11/28/2012 [facility] Height 162.56 cm 11/28/2012 [facility] Diastolic (mm Hg) 55 11/17/2012 [facility] Systolic (mm Hg) 117 11/17/2012 [facility] Diastolic (mm Hg) 70 11/17/2012 [facility] Systolic (mm Hg) 118 11/17/2012 [facility] Diastolic (mm Hg) 61 11/17/2012 [facility] Systolic (mm Hg) 154 11/17/2012 [facility] Temperature Oral (F) 97.8 F 11/17/2012 [facility] Temperature Oral (F) 97.9 F 11/17/2012 [facility] Temperature Oral (F) 98.6 F 11/17/2012 [facility] Height 162.56 cm 11/17/2012 [facility] Weight 103.21 11/17/2012 [facility] [place] [facility] Respitory Rate 18 11/17/2012 [facility] Height 162.56 cm 11/16/2012 [facility] Weight 100 11/16/2012 [facility] Diastolic (mm Hg) 58 11/14/2012 [facility] Systolic (mm Hg) 121 11/14/2012 [facility] Respitory Rate 20 11/14/2012 [facility] Heart Rate 84 11/14/2012 [facility] Temperature Oral (F) 98.0 F 11/14/2012 [facility] Respitory Rate 20 11/14/2012 [facility] Systolic (mm Hg) 103 11/14/2012 [facility] Diastolic (mm Hg) 54 11/14/2012 [facility] Temperature Oral (F) 98.0 F 11/14/2012 [facility] Heart Rate 83 11/14/2012 [facility] Diastolic (mm Hg) 68 11/14/2012 [facility] Respitory Rate 20 11/14/2012 [facility] Heart Rate 79 11/14/2012 [facility] Systolic (mm Hg) 136 11/14/2012 [facility] Temperature Oral (F) 98.4 F 11/14/2012 [facility] Height 162.56 cm 11/06/2012 [facility] Weight 100 11/06/2012 [facility] Height 162.56 cm 11/06/2012 [facility] Weight 100 11/06/2012 [facility] Height 162.56 cm 11/06/2012 [facility] Weight 104.545 11/06/2012 [facility] Systolic (mm Hg) 131 11/01/2012 [facility] Diastolic (mm Hg) 62 11/01/2012 [facility] Systolic (mm Hg) 125 11/01/2012 [facility] Diastolic (mm Hg) 62 11/01/2012 [facility] Systolic (mm Hg) 155 10/31/2012 [facility] Diastolic (mm Hg) 54 10/31/2012 [facility] Temperature Oral (F) 99.7 F 10/31/2012 [facility] Temperature Oral (F) 96.7 F 10/31/2012 [facility] Temperature Oral (F) 98.1 F 10/31/2012 [facility] Respitory Rate 19 10/31/2012 [facility] Respitory Rate 19 10/31/2012 [facility] [place] [facility] Respitory Rate 19 10/31/2012 [facility] Weight 78.2 10/24/2012 [facility] Heart Rate 126 10/23/2012 [facility] Heart Rate 130 10/23/2012 [facility] Weight 113.636 10/23/2012 [facility] Height 162.56 cm 10/23/2012 [facility] Heart Rate 119 10/23/2012 [facility] Height 162.56 cm 10/23/2012 [facility] Systolic (mm Hg) 123 10/08/2012 [facility] Respitory Rate 19 10/08/2012 [facility] Diastolic (mm Hg) 51 10/08/2012 [facility] Heart Rate 81 10/08/2012 [facility] Temperature Oral (F) 98.8 F 10/08/2012 [facility] Diastolic (mm Hg) 55 10/08/2012 [facility] Respitory Rate 20 10/08/2012 [facility] Systolic (mm Hg) 136 10/08/2012 [facility] Heart Rate 82 10/08/2012 [facility] Temperature Oral (F) 98.9 F 10/08/2012 [facility] Diastolic (mm Hg) 47 10/08/2012 [facility] Systolic (mm Hg) 107 10/08/2012 [facility] Temperature Oral (F) 98.1 F 10/08/2012 [facility] Respitory Rate 18 10/08/2012 [facility] Heart Rate 75 10/08/2012 [facility] Weight 118.200 10/03/2012 [facility] Height 162.56 cm 10/03/2012 [facility] Weight 118.182 09/23/2012 [facility] Height 162.56 cm 09/23/2012 [facility] Diastolic (mm Hg) 57 06/28/2012 [facility] Heart Rate 104 06/28/2012 [facility] Respitory Rate 18 06/28/2012 [facility] Systolic (mm Hg) 147 06/28/2012 [facility] Systolic (mm Hg) 153 06/28/2012 [facility] Diastolic (mm Hg) 61 06/28/2012 [facility] Respitory Rate 16 06/28/2012 [facility] Systolic (mm Hg) 136 06/28/2012 [facility] Diastolic (mm Hg) 52 06/28/2012 [facility] Respitory Rate 18 06/28/2012 [facility] Temperature Oral (F) 98.5 F 06/28/2012 [facility] Heart Rate 104 06/28/2012 [facility] Weight 118.182 06/14/2012 [facility] Height 162.56 cm 06/14/2012 [facility] Encounters Location Location Encounter Encounter Reason Attending ADM DC Status Source Details Type Number For Visit Provider Date Date [facility] DS [id number] DSU/ WOLFGANG 06/28 Active [facility] Medical REFLUX SUSHILA /2011 [facility] Inpatient [id number] WOLFGANG 10/03 10/08 Active [facility] SUSHILA /2012 [facility] Inpatient [id number] N/V DARELL 10/23 11/01 Active [facility] DEHYDRATI SDRINGOLA- /2012 [facility] ON MARANGA [facility] Inpatient [id number] LAVONE 11/05 11/14 Active [facility] ROSE /2012 [facility] OU [id number] CHIP 11/16 11/17 Active [facility] MARKUS /2012 [facility] Inpatient [id number] JUAN J 11/29 12/07 Active [facility] BRANDO /2012 [facility] OU [id number] SANJUANA 03/07 03/09 Active [facility] OSUAGWU /2012 [facility] OU [id number] JEANNIE 04/02 04/03 Active [facility] ADOLFO /2012 [facility] OU [id number] GASTROPAR JEANNIE 07/12 07/14 Active [facility] ESIS ADOLFO /2012 [facility] JACKIE [id number] WOLFGANG 07/26 07/27 Active [facility] SUSHILA /2012 [facility] Emergency [id number] KATELYN 08/13 08/13 Active [facility] BUBLEWICZ /2012 [facility] Outpatient [id number] SERGO WHITFIELD Cancel [facility] Procedures Procedure Code Date Perfomer Comments Source section [id number] [facility] Cholecystectomy [id number] [facility] <sup>1</sup> [facility] Hand repair [id number] 72262, x'2 [facility] <sup>2</sup> [facility] Tonsillectomy [id number] [facility] <sup>3</sup> [facility] Bypass of stomach [id number] [facility] Rotator cuff repair [id number] [facility] Heart procedure [id number] 1cardiac [facility] <sup>1</sup> stent for [facility]
--- OUTSIDE RECORDS SUMMARY | 2019-02-25 10:24 | XMS REPORT | CCD ---
:1965 Author Organization [facility] Care Team Providers Name Role [...]
--- OUTSIDE RECORDS SUMMARY | 2019-02-25 10:25 | XMS REPORT | CCD ---
:[address] [facility] Care Team Providers Name Role Phone Sukhwinder Renteria Referring Provider Allergies, Adverse Reactions, Alerts Substance Reaction Status NKDA Active Problem List Condition Effective Dates Status Acid reflux Resolved Anemia Resolved Anxiety Resolved Arthritis Resolved Depression Resolved Diabetes mellitus type 1 Resolved Edema of lower extremity Resolved Fibromyalgia Resolved Hyperlipidemia Resolved Hypertension Resolved Medications Medication Instructions Start Date End Date Status [place] 325 mg-10 mg / 15 mL, Route: [...] Duration: 30 day, Stop date: 11/02/12 10:59:00 [place] 325 mg-10 mg / 30 mL, Route: PO, 10/04/2012 10/05/2012 Discontinued 15 mL oral solution Drug Form: SOLN, Dosing Weight 118.2, kg, Q4H, PRN Pain Score 6-10, Start date: 10/04/12 17:20:00, Duration: 30 day, Stop date: 11/03/12 17:19:00 [place] 325 mg-10 mg / 15 mL, Route: [...] 14:28:00, PRN Blood Glucose Results Blistex Lip [place] Route: TOP, Dosing 10/06/2012 10/06/2012 Deleted Weight [...] /LPF] Few /LPF *NA* (10/06/2012 11:42:00) UA [place] Yeast [None Seen /HPF] Moderate /HPF *ABN* [...] values reflect the clinical guidelines of the [place] [employer].8Interpretive Data: Adult reference range values reflect the clinical guidelines of the [place] [employer].9Interpretive Data: Adult reference range values reflect the clinical guidelines of the [place] [employer].HEMATOLOGY Most recent to oldest 1 [...] Catch FREE TEXT SOURCE: FINAL REPORTS Final Miulvr82,000 - 50,000 CFU/mL Enterococcus SpeciesPRELIMINARY REPORTS Preliminary Bdbncj05,000 - 50,000 CFU/ mL Enterococcus Species ; Sensitivity PendingSUSCEPTIBILITY REPORT ENTERO Antibiotic INTERP. VDIL Ampicillin S Levofloxacin S Nitrofurantoin S Tetracycline R Vancomycin S Procedures Procedures Date Related Diagnosis section Cholecystectomy 1 Hand repair 2 Tonsillectomy 3 , [id number]
--- OUTSIDE RECORDS SUMMARY | 2019-02-25 10:26 | XMS REPORT | CCD ---
:1965 Author Organization [facility] Care Team Providers Name Role Phone Milton Arabella Ruelas Consulting Provider Ezio Sifuentes Consulting Provider Allergies, Adverse Reactions, Alerts Substance Reaction Status NKDA Active Problem List Condition Effective Dates Status Acid reflux Resolved Anemia Resolved Anxiety Resolved Arthritis Resolved Depression Resolved Diabetes mellitus type 1 Resolved Edema of lower extremity Resolved Fibromyalgia Resolved Hyperlipidemia Resolved Hypertension Resolved MRSA1, 2 10/23/2012 Active 1nares 10/23/201233477Lnwscwi added by Discern Expert. Medications Medication Instructions [...] Duration: 30 day, Stop date: 12/06/12 1:48:00 [place] 5/325 oral tablet 1 tab, PO, Q6H, [...] Duration: 30 day, Stop date: 12/08/12 10:44:00 [place] 5/325 oral tablet 1 tab, Route: PO, [...] INJ, Q2H, Dosing Weight 100, kg, Total rvti=5792 mg, Start date: 11/14/12 8:00:00, Duration: 2 [...] 11/08/2012 11/08/2012 Canceled PO, Drug form: TAB, [id number], Dosing Weight 100, kg, Start date: 11/08/12 [...] [Negative] Negative 1 (11/12/2012 21:54:26) 1Interpretive Data: [employer] Clostridium difficile assay utilizes loop-mediated isothermalDNA amplification [...] the clinical guidelines of the [place] Diabetes [employer].11Result Comment: rechecked Critical Result (s) called leslie Conner Rose at 11/12/2012 02:56:37 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 Read back OK.12Interpretive Data: Adult reference range values reflect the clinical guidelines of the [place] [employer].13Result Comment: Critical Result(s) called to [...] 10.0 240 Poor Control, take action to ewgef74Qjutwp Comment : Critical Result(s) called leslie Rose [...] Catch FREE TEXT SOURCE: FINAL REPORTS Final Osvndd97,000 - 100,000 CFU/mL Enterococcus SpeciesPRELIMINARY REPORTS Preliminary Sgbbuv50,000 - 100,000 CFU/ mL Enterococcus Species Identification And Sensitivity PendingSUSCEPTIBILITY REPORT ENTERO Antibiotic INTERP. VDIL Ampicillin S Levofloxacin S Nitrofurantoin S Tetracycline R Vancomycin S
--- OUTSIDE RECORDS SUMMARY | 2019-02-25 10:27 | XMS REPORT | CCD ---
:1965 Author Organization [facility] Care Team Providers Name Role Phone Nikhil Hager Consulting Provider Sukhwinder Renteria Consulting Provider Allergies, Adverse Reactions, Alerts Substance Reaction Status NKDA Active Problem List Condition Effective Dates Status Acid reflux Resolved Anemia Resolved Anxiety Resolved Arthritis Resolved Depression Resolved Diabetes mellitus type 1 Resolved Edema of lower extremity Resolved Fibromyalgia Resolved Hyperlipidemia Resolved Hypertension Resolved MRSA1, 2 10/23/2012 Active 1nares 10/23/201290300Ztllelx added by Discern Expert. Medications Medication Instructions [...] mg, 1 supp, 10/23/2012 11/01/2012 Discontinued Route: ME, Drug form: SUPP, Q6H, Dosing Weight 113.636, kg, PRN Fever, Start date: 10/23/12 0:37:00, Duration: 30 day, Stop date: 11/22/12 0:36:00 Visipaque 320mg/ml 126 mL, Route: IVP, Drug Form: SOLN, Dosing Weight 113.636 , kg, ONCALL, STAT, Start date: 10/23/12 16:52:00, Duration: 1 doses or times, Dose=2.2ml/kg, Max mdbo=436kg -- "To be infused by Radiology Staff ONLY" 10/2310/23/2012 Completed Dose=2.2ml/kg, Max yefs=885kz -- "To be infused by Radiology Staff [...] mg, 1 supp, 10/24/2012 10/24/2012 Deleted Route: ME, Drug form: SUPP, ONCE, Dosing Weight 78.2, [...] Duration: 1 doses or times, Dose=2.2ml/kg, Max ytnw=770nr -- "To be infused by Radiology Staff ONLY" 10/2310/23/2012 Completed Dose=2.2ml/kg, Max wtar=396bz -- "To be infused by Radiology Staff [...] Molecular Diagnostic Laboratory within the [facility]. The Molecular Diagnostic Laboratory is authorized under [...] values reflect the clinical guidelines of the [place] [employer].11Interpretive Data: Adult reference range values reflect the clinical guidelines of the [place] [employer].12Interpretive Data: Adult reference range values reflect the clinical guidelines of the [place] [employer].13Interpretive Data: Reference range is based on recommendations in the Endocrine Society Clinical Practice Guideline (J Clin Endocrinol Metab 2011;96:2690-8933)14Result Comment: Specimen Moderately Hemolyzed.15Result Comment: Critical Result(s) called to daisy otoole at 10/25/2012 01:18:09 BARREL DRILLER by tac. Read back OK.16Result Comment: Critical Result(s) called to Maribel Bustos at 10/24/2012 13:23:46 BARREL DRILLER by lwb . Readback OK.17Result Comment: Critical Result(s) called to Lyn King at 10/24/2012 09:52:38 BARREL DRILLER by lwb . Read back OK.18Result Comment: Critical Result(s) called to Jelani Rasmussen at 10/25/2012 00: 47:48 BARREL DRILLER by RM. Read back OK.19Result Comment: Critical Result(s) called to mariana bustos at _ 10/24/2012 13:37:22 CSTby_lss. Readback OK.20Result Comment : Critical Result(s) called to romero beltre at _10/24/2012 09:50:18 BARREL DRILLER by_lss. Read back OK.21Interpretive Data: HbA1C% eAG(mg/dL) [...] Data: Heparin Therapeutic Range: 57 - 92 Qcnxmct42Avqopvqptgaa Data: Heparin Therapeutic Range: 57 - 92 Jcqbpfr19Lwjemaosbohk Data: Heparin Therapeutic Range: 57 - 92 Seconds Microbiology Reports PROCEDURE:Culture: Urine STATUS: Auth (Verified) BODY SITE: COLLECTED DATE/TIME: 10/23/2012 20:33:00 SOURCE: Urine,Straight Cath FREE TEXT SOURCE: FINAL REPORTS Final Uronpl13,000 - 100,000 CFU/mL Gram Negative Rods , Lactose Fermenters , 2 [place] Types 50,000 - 100,000 CFU/mL Enterococcus Species [...]
--- OUTSIDE RECORDS SUMMARY | 2019-02-25 10:28 | XMS REPORT | CCD ---
:1965 Author Organization [facility] Care Team Providers Name Role Phone Emeli Clark Consulting Provider Allergies, Adverse Reactions, Alerts Substance Reaction Status NKDA Active Problem List Condition Effective Dates Status Acid reflux Resolved Anemia Resolved Anxiety Resolved Arthritis Resolved Depression Resolved Diabetes mellitus type 1 Resolved Edema of lower extremity Resolved Fibromyalgia Resolved Hyperlipidemia Resolved Hypertension Resolved MRSA1, 2 10/23/2012 Active 1nares 10/23/201282393Zkrhnmh added by Discern Expert. Medications Medication Instructions [...] 1 doses or times, Dose= 2.2ml/kg, Max hmto=265wv -- "To be infused by Radiology Staff ONLY" 201211/16/2012 Discontinued Dose=2.2ml/kg, Max ppus=244ei -- "To be infused by Radiology Staff ONLY" calcium gluconate + Sodium 2,000 mg, 20 mL, Route: 11/17/2012 11/17/2012 Completed Chloride 0.9% IV 80 mL IVPB, ONCE, Dosing Weight 103.21, kg, Start date: 11/17/12 11:02:00, Stop date: 11/17/12 11:02:00 enoxaparin 40 mg, 0.4 mL, Route: 11/16/2012 11/17/2012 Discontinued SUB-Q, Drug form: INJ, mevsF03T, Dosing Weight 100, kg, Start date: 11/16/12 [...] date: 11/16/12 13:40:00, Stop date: 11/16/12 13:40:00 [place] 5/325 oral tablet 1 tab, Route: PO, [...] the clinical guidelines of the [place] Diabetes Association.7Interpretive Data: Adult reference range values [...]
--- OUTSIDE RECORDS SUMMARY | 2019-02-25 10:29 | XMS REPORT | CCD ---
:1965 Author Organization [facility] Care Team Providers Name Role Phone Marcela Michaelsbhumika Westbrook Consulting Provider Alberto Mata Consulting Provider Allergies, Adverse Reactions, Alerts Substance Reaction Status NKDA Active Problem List Condition Effective Dates Status Acid reflux Resolved Anemia Resolved Anxiety Resolved Arthritis Resolved Depression Resolved Diabetes mellitus type 1 Resolved Edema of lower extremity Resolved Fibromyalgia Resolved Hyperlipidemia Resolved Hypertension Resolved [place] - Myocardial infarction 10/22/2012 Resolved MRSA1, 2, 3, 4 10/23/2012 Active Neuropathy Resolved - Nares - Kqqbp7wcoro 10/23/201283683Wyivbla added by Discern Expert. Medications Medication Instructions [...] IVPB, Drug 12/02/2012 12/02/2012 Discontinued form: PDR/INJ, [id number], Dosing Weight 100, kg, Start date: 12/02/12 [...] 11/29/2012 11/29/2012 Discontinued SUB-Q, Drug form: INJ, [id number], Dosing Weight 101.364, kg, Start date: 11/29/12 [...] mg, 1 supp, Route: 12/04/2012 12/07/2012 Discontinued AR, Drug form: SUPP, Q4H, Dosing Weight 100, [...] date: 12/04/12 23:39:00, Stop date: 12/04/12 23:39:00 [place] 7.5/325 oral tablet 1 tab, Route: PO, [...] IVPB, Drug 11/29/2012 12/01/2012 Discontinued form: PDR/INJ, SZEG09N, Dosing Weight 100, kg, Start date: 11/29/12 [...] 7:47:00 Phenergan 25 mg rectal 1 supp, AR, Q6H, PRN, 9 11/29/2012 Ordered suppository supp, [...] by the Molecular Diagnostic Laboratory within the [facility]. The Molecular Diagnostic Laboratory is [...] the clinical guidelines of the [place] [employer].11Interpretive Data: Adult reference range values reflect the clinical guidelines of the [place] [employer].12Interpretive Data: Adult reference range values reflect the clinical guidelines of the [place] [employer].13Interpretive Data: No established reference ranges.14Interpretive [...] Data: Heparin Therapeutic Range: 57 - 92 Vjruqds94Bcmvdcqranac Data: Heparin Therapeutic Range: 57 - 92 [...] Catch FREE TEXT SOURCE: FINAL REPORTS Final Ovffsk92,000 - 50,000 CFU/mL Yeast <10,000 CFU/mL Skin EsPRELIMINARY REPORTS Preliminary ReportNo Growth; Holding Procedures Procedures Date Related Diagnosis Heart procedure 1 1cardiac stent for [place]
--- OUTSIDE RECORDS SUMMARY | 2019-02-25 10:30 | XMS REPORT | CCD ---
:1965 Author Organization [facility] Care Team Providers Name Role Phone JohnbeckiReno [...] 10/23/2012 Active Neuropathy Resolved - Nares/ - Urspq4pxgrr 10/23/201200064Wqnbvjv added by Discern Expert. Medications Medication Instructions [...] 03/08/13 3:17:00, Stop date: 03/08/13 3:17:00 lidocaine-epi 1%-1:357117 1 ml, Route: SUB-Q, Drug 03/07/2013 03/07/2013 [...] date: 03/07/13 2:35:00, Stop date: 03/07/13 2:35:00 [place] 5/325 oral tablet 1 tab, PO, Q6H, [...] Results BEDSIDE GLUCOSE TESTING Most recent to [facility] 1 2 3 [Reference Range]: Gluc POC [...] Reportable Limit: 200 mg/dL.URINALYSIS Most recent to [facility] [Reference Range]: 1 2 3 UA Turbidity [...] the clinical guidelines of the [place] Diabetes Association.8Interpretive Data: Adult reference range values reflect the clinical guidelines of the [place] Diabetes [employer].9Interpretive Data: Adult reference range values reflect the clinical guidelines of the [place] Diabetes [employer].HEMATOLOGY Most recent to oldest 1 [...]
--- OUTSIDE RECORDS SUMMARY | 2019-02-25 10:31 | XMS REPORT | CCD ---
:[address] [facility] Care Team Providers Name Role Phone Sukhwinder [...] 10/23/2012 Active Neuropathy Resolved - Nares - Fhejg0hkpez 10/23/201227616Jdipjsb added by Discern Expert. Medications Medication Instructions [...]
--- OUTSIDE RECORDS SUMMARY | 2019-02-25 10:31 | XMS REPORT | CCD ---
:1965 Author Organization [facility] Care Team Providers Name Role Phone Alberto [...] 10/23/2012 Active Neuropathy Resolved - Nares - Nmntz1fcwps 10/23/201215804Qxrzkgx added by Discern Expert. Medications Medication Instructions [...] values reflect the clinical guidelines of the [place] Diabetes Association.7Interpretive Data: Adult reference range values reflect the clinical guidelines of the [place] Diabetes [employer].HEMATOLOGY Most recent to oldest [Reference [...]
--- OUTSIDE RECORDS SUMMARY | 2019-02-25 10:31 | XMS REPORT | CCD ---
:1965 Author Organization [facility] Care Team Providers Name Role [...] 10/23/2012 Active Neuropathy Resolved - Nares - Dcjdu3invvh 10/23/201220283Ykodcvt added by Discern Expert. Medications Medication Instructions Start Date End Date Status acetaminophen-hydrocod 1 tab, Route: PO, Drug Form: 07/12/2013 07/14/2013 Discontinued one 325 mg-5 mg oral TAB, Dosing Weight 86.364, tablet kg, Q4H, PRN Pain, Start date: 07/12/13 18:23:00, Duration: 30 day, Stop date: 08/11/13 18:22:00(Same as: [place] 325/5) Do not exceed 4gm/day of acetaminophen. [...] 1 doses or times, Dose =2.2ml/kg, Max cmlf=494jm -- "To be infused by Radiology Staff ONLY" 201207/12/2013 Completed Dose=2.2ml/kg, Max yhny=682ll -- "To be infused by Radiology Staff [...] day, Stop date: 08/11/13 9:00:00(Same as: Lopressor) [place] 5/325 oral 1 tab, Route: PO, Dosing [...] date: 08/11/13 9:00:00(Same as: Mag-Ox 400)Magnesium oxide 970dg=803lz elemental magnesiumDose=____mg magnesium oxide (___mg elemental magnesium) [...] [Negative] Negative 1 (07/13/2013 00:00:59) 1Interpretive Data: [employer] Clostridium difficile assay utilizes loop-mediated isothermalDNA amplification (LAMP) technology to detect a 204 bp region of the tcdA gene within the PaLoc genesegment present in all known toxigenic C. difficile strains. The assay utilizes FDA cleared IVD reagents. Performance characteristics have been verified by the Molecular Diagnostic Laboratory within the [facility]. The Molecular Diagnostic Laboratory is authorized [...] /LPF] Many /LPF *ABN* (07/12/2013 03:00:00) UA [place] Yeast [None Seen /HPF] Moderate /HPF *ABN* [...] the clinical guidelines of the [place] Diabetes Association.9Interpretive Data: Adult reference range values reflect the clinical guidelines of the [place] Diabetes [employer].10Interpretive Data: Adult reference range values [...] to oldest [Reference Range]: 1 2 3 [place]-HIV 1/2 Ab [Negative] Negative *NA* (07/14/2013 00:27:00) [place]-Hep C Ab [Negative] Negative *NA* (07/14/2013 00:27:00) CDC-HIV 1/2 Ab [Negative] Negative *NA* (07/12/2013 16:02:06)
--- OUTSIDE RECORDS SUMMARY | 2019-02-25 10:32 | XMS REPORT ---
:1965 Author Organization [facility] Address [address] [place] [address] [address] [place] [address] Care Team Providers Name Role Phone SHANI [...] (BEAKER) (test 211 mg/dL 70-110 TESTED AT [address] abgg=2087) [place] [id number] POCT-GLUCOSE [id number] 13:04:00 Test Item Value Reference Range Comments POC-GLUCOSE METER (BEAKER) 282 mg/dL 70-110 TESTED AT [address] (test dvek=2106) [place] [id number] POCT-GLUCOSE [id number] 14:35:00 Test Item Value Reference Range Comments POC-GLUCOSE METER (BEAKER) 200 mg/dL 70-110 TESTED AT [address] (test dtrs=9107) [place] [address] [id number] 12:24:00 Test Item Value Reference Range Comments SODIUM (BEAKER) (test pggw=447) 136 meq/L 136-145 POTASSIUM (BEAKER) (test irhp=132) 5.4 meq/L 3.5-5.1 CHLORIDE (BEAKER) (test eopj=663) 102 meq/L 98-107 CO2 (BEAKER) (test kviq=495) 25 meq/L 22-29 [id number] 12:24:00 Test Item Value Reference Range Comments GLUCOSE RANDOM (BEAKER) (test lpfq=404) 353 mg/dL 70-105 BUN AND [id number] 12:24:00 Test Item Value Reference Range Comments BLOOD UREA NITROGEN 14 mg/dL 7-21 ([facility]) (test zsez=209) CREATININE ([facility]) (test 1.08 mg/dL 0.57-1.25 rtfz=387) EGFR ([facility]) (test 53 mL/min/1.73 sq m ESTIMATED GFR IS NOT vwtk=0666) ACCURATE CREATININE CLEARANCE IN PREDICTING GLOMERULAR FILTRATION RATE. ESTIMATED GFR IS NOT APPLICABLE FOR DIALYSIS PATIENTS. POCT-HEMOGLOBIN [id number] 11:43:00 Test Item Value Reference Range Comments POC-HEMOGLOBIN METER 12.1 g/dL 12.0-15.0 TESTED [address] ([facility]) (test oxdm=6333) [place] [address] POCT-GLUCOSE [id number] 11:43:00 Test Item Value Reference Range Comments POC-GLUCOSE METER ([facility]) 320 mg/dL 70-110 Verify with Lab draw/TESTED AT (test alpv=8383) [place] [address] [address] [place] [address]
--- OUTSIDE RECORDS SUMMARY | 2019-02-25 10:32 | XMS REPORT | CCD ---
:1965 Author Organization [facility] Care Team Providers Name Role Phone Robert Wooten Consulting Provider Allergies, Adverse Reactions, Alerts Substance Reaction Status NKDA Active Problem List Condition Effective Dates Status Acid reflux Resolved Anemia Resolved Anxiety Resolved Arthritis Resolved Depression Resolved Diabetes mellitus type 1 Resolved Edema of lower extremity Resolved Fibromyalgia Resolved Gastric ulcer Resolved Hyperlipidemia Resolved Hypertension Resolved [place] - Myocardial infarction 10/22/2012 Resolved MRSA1, 2, 3, 4 10/23/2012 Active Neuropathy Resolved - Nares - Yemly4lknhn 10/23/201293888Eghgqfn added by Discern Expert. Medications Medication Instructions [...]
[2019-02-25 10:44] LABS: Urine Blood NEGATIVE (NEG); Urine Glucose 2+ (NEG); Urine Protein NEGATIVE (NEG); Urine Specific Gravity 1.015 (1.005-1.030); Urine pH 5.5 (5.0-7.0)
[2019-02-25] MEDS ORDERED: INSULIN -REGULAR HUMAN 50 UNIT/0.5 ML ML ONE (11:11)
[2019-02-25] MEDS ORDERED: levoFLOXacin 500 MG TAB ONE (11:13)
[2019-02-25] MEDS ORDERED: SMZ./TMP. 800/160 MG TABLET ONE (11:23)
--- NOTE | 2019-02-25 11:23 | EDPHYS ---
Physician Documentation [facility] Name: Ila Pérez Age: 53 yrs Sex: Female : 1965 Arrival Date: 02/25/2019 Time: 08:09 Bed 7 Private MD: Fabián Guerra E ED Physician Russel Sifuentes HPI: 02/25 09:06 This 53 yrs old Female presents to ER via Ambulatory with complaints of corey Nausea/Vomiting. 09:06 The patient presents to the emergency department with nausea, vomiting. Onset: The corey symptoms/episode began/occurred 3 day(s) ago. Possible causes: unknown. The symptoms are aggravated by nothing. Associated signs and symptoms: The patient has no apparent associated signs or symptoms. Severity of symptoms: At their worst the symptoms were moderate in the emergency department the symptoms are unchanged. The patient has experienced similar episodes in the past, multiple times. 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 - Social history:: Smoking status: Patient uses tobacco products, denies chronic smoking, but will smoke occasionally. - Ebola Screening: : No symptoms or risks identified at this time. - Family history:: not pertinent. ROS: 09:06 Constitutional: Negative for fever, chills, and weight loss, Eyes: Negative for injury, corey pain, redness, and discharge, ENT: Negative for injury, pain, and discharge, Neck: Negative for injury, pain, and swelling, Cardiovascular: Negative for chest pain, palpitations, and edema, Respiratory: Negative for shortness of breath, cough, wheezing, and pleuritic chest pain, Back: Negative for injury and pain, : Negative for injury, bleeding, discharge, and swelling, MS/Extremity: Negative for injury and deformity, Skin: Negative for injury, rash, and discoloration, Neuro: Negative for headache, weakness, numbness, tingling, and seizure, Psych: Negative for depression, anxiety, suicide ideation, homicidal ideation, and hallucinations, Allergy/Immunology: Negative for hives, rash, and allergies, Endocrine: Negative for neck swelling, polydipsia, polyuria, polyphagia, and marked weight changes. 09:06 Abdomen/GI: Positive for nausea and vomiting. Exam: :06 Constitutional: This is a well developed, well nourished patient who is awake, alert, corey and in no acute distress. Head/Face: Normocephalic, atraumatic. Eyes: Pupils equal round and reactive to light, extra-ocular motions intact. Lids and lashes normal. Conjunctiva and sclera are non-icteric and not injected. Cornea within normal limits. Periorbital areas with no swelling, redness, or edema. ENT: Nares patent. No nasal discharge, no septal abnormalities noted. Tympanic membranes are normal and external auditory canals are clear. Oropharynx with no redness, swelling, or masses, exudates, or evidence of obstruction, uvula midline. Mucous membranes moist. Neck: Trachea midline, no thyromegaly or masses palpated, and no cervical lymphadenopathy. Supple, full range of motion without nuchal rigidity, or vertebral point tenderness. No Meningismus. Chest/axilla: Normal chest wall appearance and motion. Nontender with no deformity. No lesions are appreciated. Cardiovascular: Regular rate and rhythm with a normal S1 and S2. No gallops, murmurs, or rubs. Normal PMI, no JVD. No pulse deficits. Respiratory: Lungs have equal breath sounds bilaterally, clear to auscultation and percussion. No rales, rhonchi or wheezes noted. No increased work of breathing, no retractions or nasal flaring. Back: No spinal tenderness. No costovertebral tenderness. Full range of motion. Skin: Warm, dry with normal turgor. Normal color with no rashes, no lesions, and no evidence of cellulitis. MS/ Extremity: Pulses equal, no cyanosis. Neurovascular intact. Full, normal range of motion. Neuro: Awake and alert, GCS 15, oriented to person, place, time, and situation. Cranial nerves II-XII grossly intact. Motor strength 5/5 in all extremities. Sensory grossly intact. Cerebellar exam normal. Normal gait. Psych: Awake, alert, with orientation to person, place and time. Behavior, mood, and affect are within normal limits. 09:06 Abdomen/GI: Inspection: abdomen appears normal, Bowel sounds: normal, Palpation: mild abdominal tenderness, in all quadrants, Liver: no appreciated palpable abnormalities, Hernia: not appreciated. 09:06 Musculoskeletal/extremity: DVT Exam: No signs of deep vein thrombosis. no pain, no swelling, no tenderness, negative Homans' sign noted on exam, no appreciated bluish discoloration, no erythema, no increased warmth. Vital Signs: 08:22 BP 164 / 89; Pulse 120; Resp 16 S; Temp 98.6(TE); Pulse Ox 100% on R/A; Weight 83.01 kg aa5 (R); Height 5 ft. 4 in. (162.56 cm) (R); Pain 8/10; 09:18 BP 168 / 70; Pulse 123; Resp 16 S; Pulse Ox 97% on R/A; Pain 8/10; aa5 10:05 BP 156 / 74; Pulse 120; Resp 16 S; Pulse Ox 98% on R/A; aa5 11:00 BP 155 / 76; Pulse 121; Resp 18 S; Temp 98.0(TE); Pulse Ox 99% on R/A; aa5 12:00 BP 148 / 66; Pulse 120; Resp 18 S; Pulse Ox 99% on R/A; aa5 08:22 Body Mass Index 31.41 (83.01 kg, 162.56 cm) aa5 Procedures: 09:09 Peripheral line: by aseptic technique a peripheral line was placed in the right [facility] external jugular vein. MDM: 08:12 Patient medically screened. [facility] 09:08 Data reviewed: vital signs, nurses notes, lab test result(s), EKG, radiologic studies, [facility] plain films. 02/25 08:18 Order name: Basic Metabolic Panel [facility] 02/25 08:18 Order name: CBC with Diff; Complete Time: 10:41 [facility] 02/25 08:18 Order name: LFT's; Complete Time: 09:55 [facility] 02/25 08:18 Order name: Magnesium; Complete Time: 09:55 [facility] 02/25 08:18 Order name: NT PRO-BNP; Complete Time: 09:55 [facility] 02/25 08:18 Order name: PT-INR; Complete Time: 09:55 [facility] 02/25 08:18 Order name: Troponin (emerg Dept Use Only); Complete Time: 09:55 [facility] 02/25 08:18 Order name: Lipase; Complete Time: 09:55 [facility] 02/25 08:19 Order name: Basic Metabolic Panel; Complete Time: 09:55 EDMS 02/25 08:20 Order name: Urine Culture [facility] 02/25 09:41 Order name: ABG; Complete Time: 10:41 corey 02/25 09:49 Order name: Urine Dipstick--Ancillary (enter results); Complete Time: 11:46 eb 02/25 09:49 Order name: Urine --Ancillary (enter results); Complete Time: 10:45 eb 02/25 10:57 Order name: Sed Rate; Complete Time: 12:26 [facility] 02/25 08:18 Order name: XRAY Chest (1 view); Complete Time: 09:10 [facility] 02/25 08:18 Order name: EKG; Complete Time: 08:20 [facility] 02/25 10:54 Order name: Foot Left 3 View XRAY [facility] 02/25 08:18 Order name: Cardiac monitoring; Complete Time: 08:25 [facility] 02/25 08:18 Order name: EKG - Nurse/Tech; Complete Time: 08:25 [facility] 02/25 08:18 Order name: IV Saline Lock; Complete Time: 09:14 [facility] 02/25 08:18 Order name: Labs collected and sent; Complete Time: 09:14 [facility] 02/25 08:18 Order name: O2 Per Protocol; Complete Time: 08:25 [facility] 02/25 08:18 Order name: O2 Sat Monitoring; Complete Time: 08:25 [facility] 02/25 08:18 Order name: Urine Dipstick-Ancillary (obtain specimen); Complete Time: 09:53 [facility] Administered Medications: 09:10 Drug: NS 0.9% 1000 ml Route: IV; Rate: 1 bolus; Site: right jugular; aa5 09:35 Follow up: IV Status: Completed infusion; IV Intake: 1000ml aa5 09:10 Drug: Zofran 4 mg Route: IVP; Site: right jugular; aa5 09:15 Follow up: Response: No adverse reaction aa5 09:42 Drug: NS 0.9% 1000 ml Route: IV; Rate: 1 bolus; Site: right jugular; aa5 10:30 Follow up: IV Status: Completed infusion; IV Intake: 1000ml aa5 09:42 Drug: NS 0.9% 1000 ml Route: IV; Rate: 125 ml/hr; Site: right jugular; aa5 09:43 Drug: Dilaudid 0.5 mg Route: IVP; Site: right jugular; aa5 10:00 Follow up: Response: No adverse reaction aa5 10:05 Not Given (Physician Discretion): Bactroban Ointment 2 % 1 application Topical once; aa5 right foot 10:05 Drug: Bactroban Ointment 2 % 1 application {Note: to left foot .} Route: Topical; Site: aa5 wound; 10:47 Drug: Dilaudid 0.5 mg Route: IVP; Site: right jugular; aa5 10:55 Follow up: Response: No adverse reaction iw 10:47 Drug: Zofran 4 mg Route: IVP; Site: right jugular; aa5 10:55 Follow up: Response: No adverse reaction iw 10:55 Drug: LevaQUIN 500 mg Route: PO; aa5 12:25 Follow up: Response: No adverse reaction aa5 10:55 Drug: Insulin Regular Human 5 units {Co-Signature: aa5 (Jinny Pantoja RN).} Route: iw IVP; Site: right jugular; 12:25 Follow up: Response: No adverse reaction aa5 11:06 Not Given (Physician Discretion): Insulin Regular Human 6 units IVP once aa5 11:13 Drug: Bactrim (160 mg-800 mg (DS) 1 tablet Route: PO; aa5 12:25 Follow up: Response: No adverse reaction aa5 Point of Care Testing: Blood Glucose: 08:44 Blood Glucose: 305 mg/dL; aa5 10:53 Blood Glucose: 299 mg/dL; aa5 10:53 Dr. Sifuentes notified aa5 Ranges: Critical Glucose Levels:Adult <50 mg/dl or >400 mg/dl <40 mg/dl or >180 mg/dl Disposition: 02/25/19 11:22 Discharged to Home. Impression: Type 1 diabetes mellitus, Nausea and vomiting, Other specified diabetes mellitus with foot ulcer. - Condition is Stable. - Discharge Instructions: Diabetes and Foot Care, Nausea and Vomiting, Adult, Blood Glucose Monitoring, Adult. - Prescriptions for Bactroban 2 % Topical Ointment - Apply to affected area 1 application by TOPICAL route every 12 hours; 30 gram. Levaquin 500 mg Oral Tablet - take 1 tablet by ORAL route once daily for 10 days; 10 tablet. Zofran 4 mg Oral Tablet - take 1 tablet by ORAL route every 12 hours As needed; 20 tablet. Bactrim DS 800- 160 mg Oral Tablet - take 1 tablet by ORAL route every 12 hours for 10 days; 20 tablet. - Medication Reconciliation Form, Thank You Letter, Antibiotic Education, Prescription Opioid Use form. - Family Work Release (02/25/19 12:39). eb - Follow up: Fabián Guerra MD; When: 2 - 3 days; Reason: Recheck today's complaints, Continuance of care, Re-evaluation by your physician. Follow up: Fito Wright DPM; When: 2 - 3 days; Reason: Recheck today's complaints, Re-evaluation by your physician. Follow up: Piero Yarbrough MD; When: 2 - 3 days; Reason: Recheck today's complaints, Re-evaluation by your physician. - Problem is new. - Symptoms have improved. Signatures: Dispatcher [employer] EDMS Russel Sifuentes MD MD cha Williams, Irene, RN RN iw Calderon, Audri, RN RN aa5 Allyson Anderson RN aa5 Corrections: (The following items were deleted from the chart) 11:23 11:22 02/25/2019 11:22 Discharged to Home. Impression: Type 1 diabetes mellitus; Nausea corey and vomiting; Other specified diabetes mellitus with foot ulcer. Condition is Stable. Forms are Medication Reconciliation Form, Thank You Letter, Antibiotic Education, Prescription Opioid Use. Follow up: Fabián Guerra; When: 2 - 3 days; Reason: Recheck today's complaints, Continuance of care, Re-evaluation by your physician. Follow up: Dr. Fito Wright; When: 2 - 3 days; Reason: Recheck today's complaints, Re-evaluation by your physician. Problem is new. Symptoms have improved. [facility] 12:31 11:23 02/25/2019 11:22 Discharged to Home. Impression: Type 1 diabetes mellitus; Nausea aa5 and vomiting; Other specified diabetes mellitus with foot ulcer. Condition is Stable. Forms are Medication Reconciliation Form, Thank You Letter, Antibiotic Education, Prescription Opioid Use. Follow up: Fabián Guerra; When: 2 - 3 days; Reason: Recheck today's complaints, Continuance of care, Re-evaluation by your physician. Follow up: Dr. Fito Wright; When: 2 - 3 days; Reason: Recheck today's complaints, Re-evaluation by your physician. Follow up: Piero Yarbrough; When: 2 - 3 days; Reason: Recheck today's complaints, Re-evaluation by your physician. Problem is new. Symptoms have improved. corey
--- NOTE | 2019-02-25 11:23 | ER ---
Nurse's Notes [facility] Name: Ila Pérez Age: 53 yrs Sex: Female : 1965 Arrival Date: 02/25/2019 Time: 08:09 Bed 7 Private MD: Fabián Guerra E Diagnosis: Type 1 diabetes mellitus;Nausea and vomiting;Other specified diabetes mellitus with foot ulcer Presentation: 02/25 08:15 Presenting complaint: Patient states: Nausea and vomiting x 2-3 days ago. Pt states "I aa5 am a Type 1 Diabetic and I think I am going into DKA". 08:15 Transition of care: patient was not received from another setting of care. Onset of aa5 symptoms was February 25, 2019. Risk Assessment: Do you want to hurt yourself or someone else? Patient reports no desire to harm self or others. Care prior to arrival: None. 08:15 Method Of Arrival: Ambulatory aa5 08:15 Acuity: DEVONTE 2 aa5 08:15 Initial Sepsis Screen: Does the patient meet any 2 criteria? HR > 90 bpm. Does the aa5 patient have a suspected source of infection? No. Patient's initial sepsis screen is negative. QUALITY IMPROVEMENT CONSULTANT: 08:22 LMP N/A - Post-menopause aa5 Historical: - Allergies: 08:20 Gluten Protein; aa5 - PMHx: 08:20 Anxiety; Chronic pain; Arthritis; Hypertension; High Cholesterol; sleep disorder; aa5 Myocardial infarction; Tachycardia; TBI; Depression; Diabetes - IDDM; Esophagitis; Fibromyalgia; GERD; heart disease; neuropathy; raynaud's; gastroparesis; - Immunization history:: Flu vaccine is not up to date. - Social history:: Smoking status: Patient uses tobacco products, denies chronic smoking, but will smoke occasionally. - Ebola Screening: : No symptoms or risks identified at this time. - Family history:: not pertinent. Screenin:20 Abuse screen: Denies threats or abuse. Nutritional screening: No deficits noted. aa5 Tuberculosis screening: No symptoms or risk factors identified. Fall Risk None identified. Assessment: 08:20 General: Appears comfortable, Behavior is calm, cooperative. Pain: Complains of pain in aa5 "left ribs". Left lateral aspect of chest Pain does not radiate. Pain currently is 8 out of 10 on a pain scale. Quality of pain is described as sharp, Pt states "I broke some ribs 2 weeks ago" Is continuous. Neuro: Level of Consciousness is awake, alert, obeys commands, Oriented to person, place, time, situation. Cardiovascular: Heart tones S1 S2 present Rhythm is sinus tachycardia. Respiratory: Airway is patent Respiratory effort is even, unlabored, Respiratory pattern is regular, symmetrical. GI: Abdomen is round Bowel sounds present X 4 quads. Abd is soft and non tender X 4 quads. Reports nausea, vomiting, Patient currently denies diarrhea. : No signs and/or symptoms were reported regarding the genitourinary system. EENT: No signs and/or symptoms were reported regarding the EENT system. Derm: Skin is pink, warm \\T\\ dry. Wound noted to left great toe that it's approximately dime-sized with no drainage noted and black tissue noted, quater-sized wound noted to ball of left foot with no drainage noted and black tissue noted. Pt states "I got the wounds about 2 weeks ago when I fell". Musculoskeletal: Range of motion: intact in all extremities. 08:35 Reassessment: Pt states "I am a hard stick and Dr. Sifuentes usually has to do an EJ". aa5 Dr. Sifuentes notified and notified of several unsuccessful IV attempts.. 09:35 Reassessment: Patient is alert, oriented x 3, equal unlabored respirations, skin aa5 warm/dry/pink. Reports nausea has improved, pt requesting pain medication. Dr. Sifuentes notified. . 10:05 Reassessment: Patient is alert, oriented x 3, equal unlabored respirations, skin aa5 warm/dry/pink. Patient states feeling better. Pt reports nausea is decreased, reports pain has decreased . Pain: Pain currently is 7 out of 10 on a pain scale. 10:05 Reassessment: Wounds to left foot cleaned with Hibiclens and saline, dressed with aa5 non-adherent dressing and Kerlix. . 10:55 Reassessment: Patient is alert, oriented x 3, equal unlabored respirations, skin aa5 warm/dry/pink. 11:00 Reassessment: Pt assisted to restroom via wheelchair. . aa5 11:13 Reassessment: Patient is alert, oriented x 3, equal unlabored respirations, skin aa5 warm/dry/pink. Awaiting for foot x-ray results for d/c home. . 11:13 Pain: Pain currently is 6 out of 10 on a pain scale. aa5 12:25 Reassessment: Patient is alert, oriented x 3, equal unlabored respirations, skin aa5 warm/dry/pink. Vital Signs: 08:22 BP 164 / 89; Pulse 120; Resp 16 S; Temp 98.6(TE); Pulse Ox 100% on R/A; Weight 83.01 kg aa5 (R); Height 5 ft. 4 in. (162.56 cm) (R); Pain 8/10; 09:18 BP 168 / 70; Pulse 123; Resp 16 S; Pulse Ox 97% on R/A; Pain 8/10; aa5 10:05 BP 156 / 74; Pulse 120; Resp 16 S; Pulse Ox 98% on R/A; aa5 11:00 BP 155 / 76; Pulse 121; Resp 18 S; Temp 98.0(TE); Pulse Ox 99% on R/A; aa5 12:00 BP 148 / 66; Pulse 120; Resp 18 S; Pulse Ox 99% on R/A; aa5 08:22 Body Mass Index 31.41 (83.01 kg, 162.56 cm) aa5 ED Course: 08:09 Patient arrived in ED. rg4 08:10 Fabián Guerra MD is Private Physician. rg4 08:12 Russel Sifuentes MD is Attending Physician. [facility] 08:15 Arm band placed on Patient placed in an exam room, on a stretcher. aa5 08:15 Patient has correct armband on for positive identification. Placed in gown. Bed in low aa5 position. Call light in reach. Side rails up X2. potline monitor on. Pulse ox on. NIBP on. 08:15 Missed attempt(s): 22 gauge in left antecubital area. Missed attempt by ursula Linares RN. Bleeding controlled, band aid applied, catheter tip intact. 08:18 Jinny Pantoja, MARTÍNEZ is Primary Nurse. aa5 08:20 Missed attempt(s): 24 gauge in left upper arm. Bleeding controlled, band aid applied, aa5 catheter tip intact. 08:24 Missed attempt(s): 24 gauge in right antecubital area. Bleeding controlled, band aid aa5 applied, catheter tip intact. 08:28 Triage completed. aa5 08:30 Missed attempt(s): 24 gauge in left upper arm. Bleeding controlled, band aid applied, aa5 catheter tip intact. 08:31 XRAY Chest (1 view) In Process Unspecified. EDMS 09:05 Initial lab(s) drawn, sent to lab. Inserted saline lock: 18 gauge in right EJ, using aa5 aseptic technique. ,using aseptic technique. Inserted by Dr. Sifuentes Blood collected. 09:21 No provider procedures requiring assistance completed. aa5 09:53 Urine collected: clean catch specimen, clear, ankit colored. jb1 11:11 Fabián Guerra MD is Referral Physician. corey 11:11 Fito Wright DPM is Referral Physician. corey 11:23 Piero Yarbrough MD is Referral Physician. corey 11:42 X-ray completed. Portable x-ray completed in exam room. Patient tolerated procedure tm4 well. 11:45 Foot Left 3 View XRAY In Process Unspecified. EDMS 12:25 IV discontinued, intact, bleeding controlled, No redness/swelling at site. Pressure aa5 dressing applied. Administered Medications: 09:10 Drug: NS 0.9% 1000 ml Route: IV; Rate: 1 bolus; Site: right jugular; aa5 09:35 Follow up: IV Status: Completed infusion; IV Intake: 1000ml aa5 09:10 Drug: Zofran 4 mg Route: IVP; Site: right jugular; aa5 09:15 Follow up: Response: No adverse reaction aa5 09:42 Drug: NS 0.9% 1000 ml Route: IV; Rate: 1 bolus; Site: right jugular; aa5 10:30 Follow up: IV Status: Completed infusion; IV Intake: 1000ml aa5 09:42 Drug: NS 0.9% 1000 ml Route: IV; Rate: 125 ml/hr; Site: right jugular; aa5 09:43 Drug: Dilaudid 0.5 mg Route: IVP; Site: right jugular; aa5 10:00 Follow up: Response: No adverse reaction aa5 10:05 Not Given (Physician Discretion): Bactroban Ointment 2 % 1 application Topical once; aa5 right foot 10:05 Drug: Bactroban Ointment 2 % 1 application {Note: to left foot .} Route: Topical; Site: aa5 wound; 10:47 Drug: Dilaudid 0.5 mg Route: IVP; Site: right jugular; aa5 10:55 Follow up: Response: No adverse reaction iw 10:47 Drug: Zofran 4 mg Route: IVP; Site: right jugular; aa5 10:55 Follow up: Response: No adverse reaction iw 10:55 Drug: LevaQUIN 500 mg Route: PO; aa5 12:25 Follow up: Response: No adverse reaction aa5 10:55 Drug: Insulin Regular Human 5 units {Co-Signature: aa5 (Jinny Pantoja RN).} Route: iw IVP; Site: right jugular; 12:25 Follow up: Response: No adverse reaction aa5 11:06 Not Given (Physician Discretion): Insulin Regular Human 6 units IVP once aa5 11:13 Drug: Bactrim (160 mg-800 mg (DS) 1 tablet Route: PO; aa5 12:25 Follow up: Response: No adverse reaction aa5 Point of Care Testing: Blood Glucose: 08:44 Blood Glucose: 305 mg/dL; aa5 10:53 Blood Glucose: 299 mg/dL; aa5 10:53 Dr. Sifuentes notified aa5 Ranges: Intake: 09:35 IV: 1000ml; Total: 1000ml. aa5 10:30 IV: 1000ml; Total: 2000ml. aa5 Outcome: 11:22 Discharge ordered by MD. nicole 12:25 Discharged to home ambulatory, with significant other. aa5 12:25 Condition: improved 12:25 Discharge instructions given to patient, Instructed on discharge instructions, follow up and referral plans. medication usage, Demonstrated understanding of instructions, follow-up care, medications, Prescriptions given X 4. 12:25 Condition: Pt was notified of elevated HR before d/c home. Pt has Hx of tachycardia and aa5 states her HR is always above 100 bpm. 12:31 Patient left the ED. aa5 Signatures: Dispatcher [employer] EDMS Ehsan Parson jb1 Russel Sifuentes MD MD cha Marroquin, Tracy tm4 Xin Garcia RN RN iw Calderon, Audri, RN RN aa5 Joel Blair RN RN hj Garcia, Rubi rg4 Jinny Pantoja RN aa5 Corrections: (The following items were deleted from the chart) 09:19 08:26 BP 164 / 89; Pulse 121bpm; Resp 20bpm; Pulse Ox 100% RA; aa5 09:25 08:20 Derm: Skin is pink, warm \\T\\ dry. aa5 aa5
--- NOTE | 2019-02-25 12:51 | RAD REPORT ---
EXAM DESCRIPTION: RAD - Foot Left 3 View - 02/25/2019 11:47 am CLINICAL HISTORY: Nontraumatic left foot pain, diabetic COMPARISON: December 2018 FINDINGS: No fracture, dislocation or periosteal reaction. No acute or destructive bony process. Ea rly IP joint space narrowing present. No spurring or erosive component. Large plantar spur present. No air or foreign body in the soft tissues. Arterial tree calcifications are present. IMPRESSION: Negative left foot examination for acute bone or joint finding.
[2019-02-25 12:56] VITALS: TEMP 98.6
[2019-02-25 13:06] VITALS: BP 168/70; O2SAT 97
--- NOTE | 2019-02-27 07:57 | EKG ---
Test Date: 2019-02-25 Test Time: 08:31:44 Hand Ii Tube Bender: MARCIA MEASUREMENT RESULTS: Intervals: Rate: 119 MS: 134 QRSD: 74 QT: 308 QTc: 433 [place]: P: 73 MS: 134 QRS: 86 T: 34 INTERPRETIVE STATEMENTS: Sinus tachycardia Otherwise normal ECG Compared to ECG 01/29/2019 22:04:14 Atrial abnormality no longer present Electronically Signed On 02-27-19 07:55:05 CDT by Cassius Perea
== END 2019-02-25 12:31 | disposition home or self-care (01) ==
LOC: ER 08:07
PROC: 05HP33Z Insertion of Infusion Device into Right External Jugular Vein, Percutaneous Approach (ICD-10-PCS; principal; 2019-02-25)
DX: E10.621 Type 1 diabetes mellitus with foot ulcer (principal); L97.529 Non-pressure chronic ulcer of other part of left foot with unspecified severity; I10 Essential (primary) hypertension; Z72.0 Tobacco use; Z91.02 Food additives allergy status
CPT/HCPCS: 96361; 87088; 85025; 87086; 80048; 36415; 83735; 81025; 85610; 82962 ×2; 80076; 85652; 81003; 84484; 83690; 83880; 71045; 73630; 82805; 96375; 96374; 99284; 36569; J1170 ×2; J7030 ×2; J2405 ×2; 93005

== ENCOUNTER 2019-03-07 21:50 | Emergency (ER) | payer OTHER ==
--- OUTSIDE RECORDS SUMMARY | 2019-03-07 21:54 | XMS REPORT | Clinical Summary ---
:1965 Author Organization [facility] Address [address] [place] [address] Care Team Providers Name Role Phone Fabián [...] 05/31/2018 Surgery Gastroenterology [facility] UPPER ENDOSCOPY [facility] 05/31/2018 Hospital Encounter Gastroenterology [facility] 05/24/2018 Hospital Encounter Pre-Admission Testing Resource, [facility] Preadmit Phone after 03/06/2018 Social History Tobacco Use Types Packs/Day Years [...] procedure are in the results section. after 03/06/2018 Results POC-Glucose meter (05/31/2018 2:40 PM CDT)Only the most recent of2 resultswithin the time period is included. POC-Glucose Meter 211 (H)Comment: TESTED AT 70 - 110 mg/dL [facility] [address] [facility] [id number] Specimen Blood Performing Organization Address City/State/Zipcode Phone Number [facility] [address] [place] [address] [phone] CENTER REPORT OF PROCEDURE - ENDOSCOPY URL (05/31/2018 2:37 PM CDT) Narrative Performed At after 03/06/2018 Insurance Payer Benefit Plan / Group Subscriber ID Type Phone Address [facility] - MEDICARE AARP/MEDICARE COMPLETE xxxxxxxxx [facility] Advance Directives For more information, please contact:[address] [phone] Code Status Date Activated Date Inactivated Comments Full Code 06/25/2017 10:56 AM 06/25/2017 5:59 PM This code status was determined by: Patient
--- NOTE | 2019-03-07 22:22 | ER ---
Nurse's Notes [facility] Name: Ila Pérez Age: 53 yrs Sex: Female : 1965 Arrival Date: 03/07/2019 Time: 21:53 Bed 23 Private MD: Fabián Guerra E Diagnosis: Pain in right toe(s);Contusion of great toe with damage to nail Presentation: 03/07 22:08 Presenting complaint: Patient states: she lifted her R great toenail from the nail bed aa1 this evening. No active bleeding noted. Transition of care: patient was not received from another setting of care. Onset of symptoms was March 07, 2019. Risk Assessment: Do you want to hurt yourself or someone else? Patient reports no desire to harm self or others. Initial Sepsis Screen: Does the patient meet any 2 criteria? No. Patient's initial sepsis screen is negative. Does the patient have a suspected source of infection? No. Patient's initial sepsis screen is negative. Care prior to arrival: None. 22:08 Method Of Arrival: Wheelchair aa1 22:08 Acuity: DEVONTE 4 aa1 Historical: - Allergies: 22:16 Gluten Protein; aa1 - Home Meds: 22:16 Albuterol Inhl [Active]; aspirin 81 mg Oral chew 1 tab once daily [Active]; benzonatate aa1 100 mg Oral cap 1 cap twice a day [Active]; bupropion HCl 150 mg Oral TbER once daily [Active]; Carafate 100 mg/mL Oral susp 10 mL three times a day [Active]; cholestopl 1 mg twice a day [Active]; Cinnamon 500 mg Oral cap 2 cap daily [Active]; Claritin 10 mg Oral tab 1 tab once daily [Active]; cyclobenzaprine 10 mg Oral tab twice a day [Active]; D3 2000 IU 2 per day [Active]; diphenoxylate-atropine 2.5-0.025 mg Oral tab 1-2 tablets every 6 hours [Active]; duloxetine 60 mg Oral cpDR 2 caps once daily [Active]; ferrous sulfate 325 mg (65 mg iron) Oral TbEC twice a day [Active]; furosemide 20 mg Oral tab one to two tabs every morning [Active]; [place] 120 mg daily [Active]; Glucagon Emergency Kit (human) 1 mg IM kit 1 mL [Active]; Glucosamine Oral [Active]; Humalog 100 unit/mL Sub-Q soln [Active]; hydroxyzine HCl 25 mg Oral tab 1 tab twice a day [Active]; k2 100 mcg bid [Active]; Lantus 18 U Sub-Q soln daily [Active]; lisinopril 5 mg Oral tab 1 tab once daily [Active]; lorazepam 1 mg Oral tab twice a day [Active]; Lyrica Oral 150 mg 2 times per day [Active]; metoprolol succinate 25 mg Oral Tb24 1 tab once daily [Active]; multivitamin Oral cap [Active]; Myrbetriq 25 mg Oral Tb24 1 tab once daily [Active]; nitroglycerin 0.4 mg SL subl 1 tab every 5 minutes [Active]; ondansetron HCl 8 mg Oral tab [Active]; pantoprazole 40 mg Oral TbEC 1 tab 2 times per day [Active]; Rozerem 8 mg Oral tab 1 tab bedtime [Active]; tramadol 50 mg Oral tab 1 tab three times a day [Active]; trazodone 50 mg Oral tab nightly [Active]; Vasculera 630 mg Oral tab daily [Active]; - PMHx: 22:16 Anxiety; Arthritis; Chronic pain; Depression; Diabetes - IDDM; Esophagitis; aa1 Fibromyalgia; Gastroparesis; GERD; heart disease; High Cholesterol; Hypertension; Myocardial infarction; neuropathy; raynaud's; sleep disorder; Tachycardia; TBI; - Immunization history:: Last tetanus immunization: unknown. - Social history:: Smoking status: Patient uses tobacco products, smokes one-half pack cigarettes per day. - Ebola Screening: : No symptoms or risks identified at this time. Screenin:18 Abuse screen: Denies threats or abuse. Denies injuries from another. Nutritional aa1 screening: No deficits noted. Tuberculosis screening: No symptoms or risk factors identified. Fall Risk None identified. Assessment: 22:18 General: Appears in no apparent distress. comfortable, Behavior is calm, cooperative, aa1 appropriate for age. Pain: Complains of pain in Right first toenail Pain currently is 8 out of 10 on a pain scale. Neuro: Level of Consciousness is awake, alert, obeys commands, Oriented to person, place, time, situation, Moves all extremities. Full function Gait is steady. Respiratory: Airway is patent Respiratory effort is even, unlabored, Respiratory pattern is regular, symmetrical. GI: No signs and/or symptoms were reported involving the gastrointestinal system. : No signs and/or symptoms were reported regarding the genitourinary system. EENT: No signs and/or symptoms were reported regarding the EENT system. Derm: Skin is intact, is healthy with good turgor, Skin is pink, warm \T\ dry. Derm: R great toenail partially lifted from nail bed. Musculoskeletal: Circulation, motion, and sensation intact. Capillary refill < 3 seconds. 22:44 Reassessment: Patient appears in no apparent distress at this time. Patient is alert, aa1 oriented x 3, equal unlabored respirations, skin warm/dry/pink. Discussed d/c \T\ f/u instructions with pt; denies questions or concerns at this time. Vital Signs: 22:16 BP 136 / 58; Pulse 93; Resp 18; Temp 99.3; Pulse Ox 100% on R/A; Weight 83.01 kg; aa1 Height 5 ft. 4 in. (162.56 cm); Pain 8/10; 22:44 BP 119 / 73; Pulse 89; Resp 18; Temp 98.8; Pulse Ox 100% on R/A; aa1 22:16 Body Mass Index 31.41 (83.01 kg, 162.56 cm) aa1 ED Course: 21:53 Patient arrived in ED. am2 21:53 Fabián Guerra MD is Private Physician. am2 22:07 [facility] snw 22:07 Russel Sifuentes MD is Attending Physician. snw 22:08 Steph Andrade, MARTÍNEZ is Primary Nurse. aa1 22:09 Triage completed. aa1 22:16 Arm band placed on right wrist. aa1 22:18 Patient has correct armband on for positive identification. Bed in low position. Call aa1 light in reach. Pulse ox on. NIBP on. 22:19 Fabián Guerra MD is Referral Physician. snw 22:44 No provider procedures requiring assistance completed. Patient did not have IV access aa1 during this emergency room visit. 22:44 Dressings: Lety x 1 right first toe 4X4s X 1; right first toe. aa1 Administered Medications: 22:30 Drug: Bactroban Ointment 2 % 1 application Route: Topical; Site: affected area; aa1 22:30 Drug: Hibiclens 4 % 1 application Route: Topical; Site: affected area; aa1 22:30 Drug: Tetanus-Diphtheria Toxoid Ped 0.5 ml {Medical Records Analyst: [employer]. Exp: aa1 11/26/2020. Lot #: [id number]. } Route: IM; Site: right deltoid; 22:44 Follow up: Response: No adverse reaction; Medication administered at discharge. aa1 Outcome: 22:21 Discharge ordered by . snw 22:44 Discharged to home ambulatory, with significant other. aa1 22:44 Condition: good 22:44 Discharge instructions given to patient, Instructed on discharge instructions, follow up and referral plans. medication usage, wound care, Demonstrated understanding of instructions, follow-up care, medications, wound care. 22:48 Patient left the ED. aa1 Signatures: Steph Andrade RN RN aa1 Janelle Barrera, SHIRT CLEANER-C SHIRT CLEANER-Csnw Erendira Dao am2
--- NOTE | 2019-03-07 22:22 | EDPHYS ---
Physician Documentation [facility] Name: Ila Pérez Age: 53 yrs Sex: Female : 1965 Arrival Date: 03/07/2019 Time: 21:53 Bed 23 Private MD: Fabián Guerra E ED Physician Russel Sifuentes HPI: 03/07 22:30 This 53 yrs old Female presents to ER via Wheelchair with complaints of Toe snw Injury. 22:30 The patient presents with pain, that is acute. The complaints affect the right foot. snw Context: resulted from stubbing toe on Mechanism of Injury: toenail lifted up the patient can fully bear weight. Onset: The symptoms/episode began/occurred suddenly, just prior to arrival. Associated signs and symptoms: The patient has no apparent associated signs or symptoms. Severity of symptoms: At their worst the symptoms were moderate, severe. The patient has not experienced similar symptoms in the past. Historical: - Allergies: 22:16 Gluten Protein; aa1 - Home Meds: 22:16 Albuterol Inhl [Active]; aspirin 81 mg Oral chew 1 tab once daily [Active]; benzonatate aa1 100 mg Oral cap 1 cap twice a day [Active]; bupropion HCl 150 mg Oral TbER once daily [Active]; Carafate 100 mg/mL Oral susp 10 mL three times a day [Active]; cholestopl 1 mg twice a day [Active]; Cinnamon 500 mg Oral cap 2 cap daily [Active]; Claritin 10 mg Oral tab 1 tab once daily [Active]; cyclobenzaprine 10 mg Oral tab twice a day [Active]; D3 2000 IU 2 per day [Active]; diphenoxylate-atropine 2.5-0.025 mg Oral tab 1-2 tablets every 6 hours [Active]; duloxetine 60 mg Oral cpDR 2 caps once daily [Active]; ferrous sulfate 325 mg (65 mg iron) Oral TbEC twice a day [Active]; furosemide 20 mg Oral tab one to two tabs every morning [Active]; [place] 120 mg daily [Active]; Glucagon Emergency Kit (human) 1 mg IM kit 1 mL [Active]; Glucosamine Oral [Active]; Humalog 100 unit/mL Sub-Q soln [Active]; hydroxyzine HCl 25 mg Oral tab 1 tab twice a day [Active]; k2 100 mcg bid [Active]; Lantus 18 U Sub-Q soln daily [Active]; lisinopril 5 mg Oral tab 1 tab once daily [Active]; lorazepam 1 mg Oral tab twice a day [Active]; Lyrica Oral 150 mg 2 times per day [Active]; metoprolol succinate 25 mg Oral Tb24 1 tab once daily [Active]; multivitamin Oral cap [Active]; Myrbetriq 25 mg Oral Tb24 1 tab once daily [Active]; nitroglycerin 0.4 mg SL subl 1 tab every 5 minutes [Active]; ondansetron HCl 8 mg Oral tab [Active]; pantoprazole 40 mg Oral TbEC 1 tab 2 times per day [Active]; Rozerem 8 mg Oral tab 1 tab bedtime [Active]; tramadol 50 mg Oral tab 1 tab three times a day [Active]; trazodone 50 mg Oral tab nightly [Active]; Vasculera 630 mg Oral tab daily [Active]; - PMHx: 22:16 Anxiety; Arthritis; Chronic pain; Depression; Diabetes - IDDM; Esophagitis; aa1 Fibromyalgia; Gastroparesis; GERD; heart disease; High Cholesterol; Hypertension; Myocardial infarction; neuropathy; raynaud's; sleep disorder; Tachycardia; TBI; - Immunization history:: Last tetanus immunization: unknown. - Social history:: Smoking status: Patient uses tobacco products, smokes one-half pack cigarettes per day. - Ebola Screening: : No symptoms or risks identified at this time. ROS: 22:26 Constitutional: Negative for fever, chills, and weight loss, Eyes: Negative for injury, snw pain, redness, and discharge, ENT: Negative for injury, pain, and discharge, Neck: Negative for injury, pain, and swelling, Cardiovascular: Negative for chest pain, palpitations, and edema, Respiratory: Negative for shortness of breath, cough, wheezing, and pleuritic chest pain, Abdomen/GI: Negative for abdominal pain, nausea, vomiting, diarrhea, and constipation, Back: Negative for injury and pain, : Negative for injury, bleeding, discharge, and swelling, Skin: Negative for injury, rash, and discoloration, Neuro: Negative for headache, weakness, numbness, tingling, and seizure. 22:26 MS/extremity: Positive for injury or acute deformity, pain, of the Right first toenail, lifted up great right toenail, no bleeding. Exam: 22:27 Constitutional: This is a well developed, well nourished patient who is awake, alert, snw and in no acute distress. Head/Face: Normocephalic, atraumatic. Eyes: Pupils equal round and reactive to light, extra-ocular motions intact. Lids and lashes normal. Conjunctiva and sclera are non-icteric and not injected. Cornea within normal limits. Periorbital areas with no swelling, redness, or edema. ENT: Nares patent. No nasal discharge, no septal abnormalities noted. Tympanic membranes are normal and external auditory canals are clear. Oropharynx with no redness, swelling, or masses, exudates, or evidence of obstruction, uvula midline. Mucous membranes moist. Neck: Trachea midline, no thyromegaly or masses palpated, and no cervical lymphadenopathy. Supple, full range of motion without nuchal rigidity, or vertebral point tenderness. No Meningismus. Chest/axilla: Normal chest wall appearance and motion. Nontender with no deformity. No lesions are appreciated. Cardiovascular: Regular rate and rhythm with a normal S1 and S2. No gallops, murmurs, or rubs. Normal PMI, no JVD. No pulse deficits. Respiratory: Lungs have equal breath sounds bilaterally, clear to auscultation and percussion. No rales, rhonchi or wheezes noted. No increased work of breathing, no retractions or nasal flaring. Abdomen/GI: Soft, non-tender, with normal bowel sounds. No distension or tympany. No guarding or rebound. No evidence of tenderness throughout. Back: No spinal tenderness. No costovertebral tenderness. Full range of motion. Skin: Warm, dry with normal turgor. Normal color with no rashes, no lesions, and no evidence of cellulitis. Neuro: Awake and alert, GCS 15, oriented to person, place, time, and situation. Cranial nerves II-XII grossly intact. Motor strength 5/5 in all extremities. Sensory grossly intact. Cerebellar exam normal. Normal gait. Psych: Awake, alert, with orientation to person, place and time. Behavior, mood, and affect are within normal limits. 22:27 Musculoskeletal/extremity: Extremities: right great toe with scabbed ulceration to distal plantar surface, nail lifted up but attached at base. No active bleeding, ROM: no acute changes, Circulation is intact in all extremities. Sensation intact. Vital Signs: 22:16 BP 136 / 58; Pulse 93; Resp 18; Temp 99.3; Pulse Ox 100% on R/A; Weight 83.01 kg; aa1 Height 5 ft. 4 in. (162.56 cm); Pain 8/10; 22:44 BP 119 / 73; Pulse 89; Resp 18; Temp 98.8; Pulse Ox 100% on R/A; aa1 22:16 Body Mass Index 31.41 (83.01 kg, 162.56 cm) aa1 MDM: 22:08 Patient medically screened. [facility] 22:26 Data reviewed: vital signs, nurses notes. Data interpreted: Pulse oximetry: on room air snw is 100 %. Interpretation: normal. Counseling: I had a detailed discussion with the patient and/or guardian regarding: the historical points, exam findings, and any diagnostic results supporting the discharge/admit diagnosis, the need for outpatient follow up, to return to the emergency department if symptoms worsen or persist or if there are any questions or concerns that arise at home. Special discussion: Based on the history and exam findings, there is no indication for further emergent testing or inpatient evaluation. I discussed with the patient/guardian the need to see the employment specialist/program manager for further evaluation of the symptoms. I discussed with the patient/guardian the need to see the primary care provider for further evaluation of the symptoms. 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 Exp: aa1 11/26/2020. Lot #: [id number]. } Route: IM; Site: right deltoid; 22:44 Follow up: Response: No adverse reaction; Medication administered at discharge. aa1 Disposition: 03/08 09:38 Co-signature as Attending Physician, Russel Sifuentes MD I agree with the assessment and corey plan of care. Disposition: 03/07/19 22:21 Discharged to Home. Impression: Pain in right toe(s), Contusion of great toe with damage to nail. - Condition is Stable. - Discharge Instructions: Musculoskeletal Pain, Wound Care, Cryotherapy. - Medication Reconciliation Form, Thank You Letter, Antibiotic Education, Prescription Opioid Use form. - Follow up: Fabián Guerra MD; When: 2 - 3 days; Reason: Recheck today's complaints, Continuance of care, Re-evaluation by your physician. Follow up: Emergency Department; When: As needed; Reason: Worsening of condition. Signatures: Steph Andrade RN RN aa1 Russel Sifuentes MD MD cha Therrien, Shelly, HEALTH SCIENCE INSTRUCTOR-C HEALTH SCIENCE INSTRUCTOR-Csnw Corrections: (The following items were deleted from the chart) 03/07 22:48 22:21 03/07/2019 22:21 Discharged to Home. Impression: Pain in right toe(s); Contusion aa1 of great toe with damage to nail. Condition is Stable. Forms are Medication Reconciliation Form, Thank You Letter, Antibiotic Education, Prescription Opioid Use. Follow up: Fabián Guerra; When: 2 - 3 days; Reason: Recheck today's complaints, Continuance of care, Re-evaluation by your physician. Follow up: Emergency Department; When: As needed; Reason: Worsening of condition. snw
[2019-03-07] MEDS ORDERED: TETANUS & DIPHTHERIA TOX,ADULT 0.5 ML VIAL ONE (22:42)
[2019-03-07] MEDS ORDERED: MUPIROCIN 2% OINT 22GM TUBE TOP ONE (22:42)
--- OUTSIDE RECORDS SUMMARY | 2019-03-07 23:51 | XMS REPORT | Continuity of Care Document ---
:1965 Author Organization [employer] Care Team Providers Name Role Phone [employer] Unavailable Unavailable Problems Problem Status Onset Classification Date Comments Source Date Reported PAIN IN Active 08/13/20 [facility] ABDOMEN/NAUSEA/TI Medical GHTENESS IN [facility] Center BDDC/GASTROESOPHA Active 07/24/20 [facility] GEAL REFLUX [address] [place] [address] DISEASE Center VOMITING Active 07/11/[address] Center GASTROPARESIS Active 07/11/[address] Center CHEST PAIN Active 04/02/[address] Center R/O ACS Active 04/02/[address] SOB/CHEST PAIN Active 03/06/[address] Center HYPERGLYCEMIA Active 03/06/20 [facility] DEHYDRATION [address] [place] [address] GASTROPARESIS Center NASEAU Active 01/11/[address] Center VOMITTING, Active 11/29/19 [facility] DIABETIC, HEART Medical PT Center N/V Active 11/29/[address] Center ACS R/O AND Active 11/17/19 [facility] PERSISTANT N/V [address] [place] [address] Center NAUSEA, VOMITTING Active 11/17/[address] Center MRSA1, 2 Active 10/23/19 Problem 11/19/2012 1nares 10/23/2012 [place] [id number] 2Problem added by Discern Expert. 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 MRSA1, 2, 3, 4 Active 10/23/19 Problem 04/05/2013 - [place] [place] [id number] - [facility] 3nares 10/23/2012 Center 4Problem added by Discern Expert. N/V DEHYDRATION Active 10/22/[address] Center [place] - Myocardial Resolved 10/22/19 Problem 08/15/2013 [facility] infarction [address] [place] [address] [place] - Myocardial Resolved 10/22/19 Problem 04/05/[address] DSU/ REFLUX Active 06/13/[address] MORBID OBESITY Active 01/19/[address] Acid reflux Resolved Problem 04/05/2013 [facility] Anemia Resolved Problem 04/05/2013 [facility] Anxiety Resolved Problem 04/05/2013 [facility] Arthritis Resolved Problem 04/05/2013 [facility] Depression Resolved Problem 04/05/2013 [facility] Diabetes mellitus Resolved Problem 04/05/[address] Edema of lower Resolved Problem 04/05/2013 [facility] Fibromyalgia Resolved Problem 04/05/2013 [facility] Hyperlipidemia Resolved Problem 04/05/2013 [facility] Hypertension Resolved Problem 04/05/2013 [facility] Acid reflux Resolved Problem 08/15/2013 [facility] Anemia Resolved Problem 08/15/2013 [facility] Anxiety Resolved Problem 08/15/2013 [facility] Arthritis Resolved Problem 08/15/2013 [facility] Depression Resolved Problem 08/15/2013 [facility] Diabetes mellitus Resolved Problem 08/15/[address] Edema of lower Resolved Problem 08/15/2013 [facility] Fibromyalgia Resolved Problem 08/15/2013 [facility] Gastric ulcer Resolved Problem 08/15/2013 [facility] Hyperlipidemia Resolved Problem 08/15/2013 [facility] Hypertension Resolved Problem 08/15/2013 [facility] Neuropathy Resolved Problem 08/15/2013 [facility] Gastric ulcer Resolved Problem 04/05/2013 [facility] Neuropathy Resolved Problem 04/05/2013 [facility] MORBID OBESITY Active [facility] NAUSEA WITH Active [facility] VOMITING [facility] CHEST PAIN NOS Active [facility] OTHER GENERAL Active [facility] SYMPTOMS [facility] Medications Medication Details Route Status Patient Ordering Order Source Instructions Provider Date Zofran 4 mg 4 mg=1 tab, PO, Active De La Garza 08/13/ [facility] oral tablet BID, # 10 tab, 0 2012 Medical Refill(s) Center Reglan 10 mg 10 mg=1 tab, PO, Active De La Garza 08/13/ [facility] oral tablet QID, # 40 tab, 0 2012 Medical Refill(s) Center IDS med 5 mg, 1 mL, Inactive Ruggiero 08/13/ [facility] Rate: 30 ml/hr, 2012 Medical Infuse over: 2 Center minutes, Route: IV, Total Volume: 1, Stop date: 08/13/13 16:00:00 NS (Bolus) IV 1,000 mL, Rate: Inactive De La Garza [facility] 1,000 mL 1,000 ml/hr, 2012 Medical Infuse over: 1 Center hr, Route: IV, Dosing Weight 81.818 kg, Total Volume: 1,000, Priority: STAT, Start date: 08/13/13 13:56:00, Duration: 1 doses or times, Stop date: 08/13/13 14:55:00, Bolus DoseBolus Dose Phenergan 25 mg, 1 mL, Inactive De La Garza [facility] Route: IVPB, 2012 Medical Drug form: [...] Sulfate) Sodium Chloride 1,000 mL, Rate: Inactive Wilfredcz [facility] 0.9% (Bolus) IV 1,000 ml/hr, 2012 Medical 1,000 mL Infuse over: 1 Center hr, Route: IV, Dosing Weight 81.818 kg, Total Volume: 1,000, Priority: STAT, Start date: 08/13/13 11:52:00, Duration: 1 doses or times, Stop date: 08/13/13 12:51:00, Bolus DoseBolus Dose normal saline 1,000 mL, Rate: Inactive [facility] 0.9% IV 1,000 500 ml/hr, 2012 Medical mL Infuse over: 2 Center hr, Route: IV, Dosing Weight 86.364 kg, Total Volume: 1,000, Start date: 07/14/13 14:02:00, Duration: 4 hr, Stop date: 07/14/13 18:01:00 Reglan 10 mg 10 mg, 1 tab, Inactive [facility] oral tablet Route: PO, Drug 2012 Medical form: TAB, Center TID-Before Meals, Dosing Weight 86.364, kg, Start date: 07/14/13 11:30:00, Duration: 30 day, Stop date: 08/13/13 7:30:00(Same as: Reglan) Take 30 min before meals Levemir 15 unit, 0.15 No Longer [facility] mL, Route: Active 2012 Medical SUB-Q, Drug Center form: INJ, BID, Dosing Weight 86.364, kg, Start date: 07/13/13 21:00:00, Duration: 30 day, Stop date: 08/12/13 9:00:00Same as Levemir "single patient use only" pneumococcal 0.5 ml, Route: No Longer SYSTEM [facility] 23-valent IM, Drug Form: Active 2012 Medical vaccine INJ, Start date: [place] 07/13/13 9:00:00, Stop date: 07/13/13 9:00:00 influenza virus 0.5 ml, Route: No Longer SYSTEM [facility] vaccine, IM, Drug Form: Active 2012 Medical inactivated SUSP, Start Center date: 07/13/13 9:00:00, Stop date: 07/13/13 9:00:00 lisinopril 20 mg, 1 tab, No Longer [facility] Route: PO, Drug Active 2012 Medical form: TAB, Center Daily, Dosing Weight 86.364, kg, Start date: 07/13/13 9:00:00, Duration: 30 day, Stop date: 08/11/13 9:00:00(Same as: Prinivil, Zestril) metoprolol 50 mg, Route: No Longer Taver[facility] tartrate PO, Drug form: Active 2012 Medical TAB, Daily, Center Dosing Weight 86.364, kg, Start date: 07/13/13 9:00:00, Duration: 30 day, Stop date: 08/11/13 9:00:00 Lyrica 150 mg, 2 cap, No Longer [facility] Route: PO, Drug Active 2012 Medical form: CAP, BID, Center Dosing Weight 86.364, kg, Start date: 07/13/13 9:00:00, Duration: 30 day, Stop date: 08/11/13 17:00:00(Same as: Lyrica) potassium 20 mEq, 1 tab, No Longer [facility] chloride Route: PO, Drug Active 2012 Medical form: ERTAB, Center Daily, Dosing Weight 86.364, kg, Start date: 07/13/13 9:00:00, Duration: 30 day, Stop date: 08/11/13 9:00:00(Same as: K-Dur 20) "Do Not Crush" With food and full glass of water Effient 10 mg, 1 tab, No Longer [facility] Route: PO, Drug Active 2012 Medical form: TAB, Center Daily, Dosing Weight 86.364, kg, Start date: 07/13/13 9:00:00, Duration: 30 day, Stop date: 08/11/13 9:00:00Same as Effient For patients 60kg, without history of TIA/Ischemic stroke and without likely bypass surgery Protonix 40 mg, 1 tab, No Longer [facility] Route: PO, Drug Active 2012 Medical form: ECTAB, Center BID-Before Meals, Dosing Weight 86.364, kg, Start date: 07/13/13 9:00:00, Stop date: 08/11/13 16:30:00Tablet should not be chewed or crushed. (Same as: Protonix) meloxicam 7.5 mg, Route: No Longer [facility] [facility] PO, Drug form: Active 2012 Medical TAB, BID, Dosing Center Weight 86.364, kg, Start date: 07/13/13 9:00:00, Duration: 30 day, Stop date: 08/11/13 17:00:00 magnesium oxide 400 mg, 1 tab, No Longer Adolfo [facility] Route: PO, Drug Active 2012 Medical form: TAB, Center Daily, Dosing Weight 86.364, kg, Start date: 07/13/13 9:00:00, Duration: 30 day, Stop date: 08/11/13 9:00:00(Same as: Mag-Ox 400) Magnesium oxide [id number] elemental magnesium Dose=____mg magnesium oxide (___mg elemental magnesium) furosemide 40 40 mg, 1 tab, No Longer [facility] mg oral tablet Route: PO, Drug Active 2012 Medical form: TAB, Center Daily, Dosing Weight 86.364, kg, Start date: 07/13/13 9:00:00, Duration: 30 day, Stop date: 08/11/13 9:00:00(Same as: Lasix) May cause GI upset. Give with food or milk. ferrous sulfate 325 mg, 1 tab, No Longer [facility] Route: PO, Drug Active 2012 Medical form: ECTAB, Center TID, Dosing Weight 86.364, kg, Start date: 07/13/13 9:00:00, Duration: 30 day, Stop date: 08/11/13 17:00:00Give with food. "Do Not Crush" clonazepam 0.5 mg, 1 tab, No Longer [facility] Route: PO, Drug Active 2012 Medical form: TAB, TID, Center Dosing Weight 86.364, kg, Start date: 07/13/13 9:00:00, Duration: 30 day, Stop date: 08/11/13 17:00:00(Same As: Klonopin) Insulin regular 5 unit, 0.05 mL, No Longer [facility] Route: SUB-Q, Active 2012 Medical Drug [...] Reglan 10 mg, 2 mL, No Longer [facility] Route: IVP, Drug Active 2012 Medical form: INJ, Q6H, Center Dosing Weight 86.364, kg, Start date: 07/13/13 0:00:00, Duration: 30 day, Stop date: 08/11/13 18:00:00(Same as: Reglan) normal saline 1,000 mL, Rate: No Longer [facility] 0.9% IV 1,000 200 ml/hr, Active 2012 Medical mL Infuse over: 5 Center hr, Route: IV, Dosing Weight 86.364 kg, Total Volume: 1,000, Start date: 07/12/13 21:08:00, Duration: 3 doses or times, Stop date: 07/13/13 12:07:00 metoprolol 50 mg, 1 tab, No Longer [facility] tartrate Route: PO, Drug Active 2012 Medical form: TAB, Q12H, Center Dosing Weight 86.364, kg, Start date: 07/12/13 21:00:00, Duration: 30 day, Stop date: 08/11/13 9:00:00(Same as: Lopressor) Levemir 12 unit, 0.12 No Longer [facility] mL, Route: Active 2012 Medical SUB-Q, Drug Center form: INJ, BID, Dosing Weight 86.364, kg, Start date: 07/12/13 21:00:00, Duration: 30 day, Stop date: 08/11/13 9:00:00Same as Levemir "single patient use only" Cymbalta 120 mg, 2 cap, No Longer [facility] Route: PO, Drug Active 2012 Medical form: DRC, Center Bedtime, Dosing Weight 86.364, kg, Start date: 07/12/13 21:00:00, Duration: 30 day, Stop date: 08/10/13 21:00:00Non Formulary Drug (Same as: Cymbalta) (Do Not Crush) ProAir HFA 90 2 puff, Route: No Longer [place] [facility] mcg/inh INHALATION, Drug Active 2012 Medical inhalation Form: AERO/A, [place] aerosol with Dosing Weight adapter 86.364, kg, QID, PRN Shortness of breath, Start date: 07/12/13 20:09:00, Duration: 30 day, Stop date: 08/11/13 20:08:00Albutero l 90 microgram/inh 8gm HFA Same as: Ventelida, Proventil aspirin 81 mg 81 mg, 1 tab, No Longer [facility] tablet, enteric Route: PO, Drug Active 2012 Medical coated form: ECTAB, [place] Daily, Dosing Weight 86.364, kg, Start date: 07/12/13 20:00:00, Duration: 30 day, Stop date: 08/11/13 9:00:00Do not crush or chew. (Same As: Ecotrin) glucagon 1 mg, Route: IM, No Longer Adolfo [facility] Drug form: Active 2012 Medical PDR/INJ, PRN, [place] Dosing Weight 86.364, kg, PRN Blood Glucose Results, Start date: 07/12/13 18:26:00, Duration: 30 day, Stop date: 08/11/13 18:25:00 Dextrose 50% 12.5 gm, 25 mL, No Longer Adolfo [facility] Syringe Route: IVP, Drug Active 2012 Medical Form: INJ, [place] Dosing Weight 86.364, kg, PRN, PRN Blood Glucose Results, Start date: 07/12/13 18:26:00, Duration: 30 day, Stop date: 08/11/13 18:25:00 insulin aspart 4 unit, 0.04 mL, No Longer Adolfo [facility] Route: SUB-Q, Active 2012 Medical Drug form: SOLN, [place] TID-Before Meals, Dosing Weight 86.364, kg, PRN Blood Glucose Results, Start date: 07/12/13 18:26:00, Duration: 30 day, Stop date: 08/11/13 18:25:00Roll in palms of hands gently; Do not shake vigorously. (Same as: NovoLog) "single patient use only" Stable for 28 days at room temperature. Expires in days from Da te tramadol 50 mg 50 mg, 1 tab, No Longer [place] oral tablet Route: PO, Drug Active 2012 Medical form: TAB, Q4H, Center Dosing Weight 86.364, kg, PRN as needed for pain, Start date: 07/12/13 18:24:00, Duration: 30 day, Stop date: 08/11/13 18:23:00Not to exceed 400mg/day. (Same As: Ultram) acetaminophen-h 1 tab, Route: No Longer Adolfo [facility] ydrocodone 325 PO, Drug Form: Active 2012 Medical mg-5 mg oral TAB, Dosing Center tablet Weight 86.364, kg, Q4H, PRN Pain, Start date: 07/12/13 18:23:00, Duration: 30 day, Stop date: 08/11/13 18:22:00(Same as: [place] 325/5) Do not exceed 4gm/day of acetaminophen. Flexeril 10 mg, 1 tab, No Longer [facility] Route: PO, Drug Active 2012 Medical form: TAB, TID, Center Dosing Weight 86.364, kg, PRN Spasm, Start date: 07/12/13 18:23:00, Duration: 30 day, Stop date: 08/11/13 18:22:00(Same As: Flexeril) benzonatate 100 mg, 1 cap, No Longer [facility] Route: PO, Drug Active 2012 Medical form: CAP, TID, Center Dosing Weight 86.364, kg, PRN as needed for cough, Start date: 07/12/13 18:23:00, Duration: 30 day, Stop date: 08/11/13 18:22:00(Same As: Oleksandr Francis) "Do Not Crush" Saline Flush 5 ml, Route: No Longer [facility] 0.9% IVP, Drug Form: Active 2012 Medical INJ, Dosing Center Weight 86.364, kg, PRN, PRN Line Flush, Start date: 07/12/13 18:22:00, Duration: 30 day, Stop date: 08/11/13 18:21:00(Same as: BD Posiflush) ondansetron 4 mg, 2 mL, No Longer [facility] Route: IVP, Drug Active 2012 Medical form: INJ, Q8H, Center Dosing Weight 86.364, kg, PRN Nausea & Vomiting, Start date: 07/12/13 18:22:00, Duration: 30 day, Stop date: 08/11/13 18:21:00(Same as: Zofran) aspirin 81 mg 81 mg, 1 tab, Active [facility] tablet, enteric PO, Daily, 0 2012 Medical coated tab, Center Substitution Allowed, ECTAB Klor-Con M20 20 mEq, 1 tab, No Longer [facility] oral tablet, PO, Daily, 180 Active 2012 Medical extended tab, Center release Substitution Allowed, ERTAB furosemide 40 40 mg, 1 tab, No Longer [facility] mg oral tablet PO, Daily, 30 Active 2012 Medical tab, Center Substitution Allowed, TAB benzonatate 100 PO, TID, PRN, 1 Active [facility] mg oral capsule to 2 tabs, prn, 2012 Medical Substitution Center Allowed1 to 2 tabs metoprolol 50 mg, 1 tab, No Longer [facility] tartrate 50 mg PO, Daily, 180 Active 2012 Medical oral tablet tab, Center Substitution Allowed, TAB Reglan 10 mg, 2 mL, Inactive Clover Simmons [facility] Route: IVP, Drug 2012 Medical form: INJ, ONCE, Center Dosing Weight 86.364, kg, Priority: STAT, Start date: 07/12/13 12:12:00, Stop date: 07/12/13 12:12:00(Same as: Reglan) Zofran 4 mg, Route: Inactive [facility] 07/12[facility] IVP, Drug form: 2012 Medical INJ, ONCE, Center Dosing Weight 86.364, kg, Priority: STAT, Start date: 07/12/13 10:52:00, Stop date: 07/12/13 10:52:00 morphine 4 mg, Route: Inactive [facility] 07/12[facility] Sulfate IVP, Drug form: 2012 Medical INJ, ONCE, Center Dosing Weight 86.364, kg, Priority: STAT, Start date: 07/12/13 10:51:00, Stop date: 07/12/13 10:51:00 Zofran 4 mg, 2 mL, Inactive Clover Simmons Fei Route: IVP, Drug 2012 Medical form: [...] Stop date: 07/12/13 11:05:00, Bolus DoseBolus Dose [place] 5/325 1 tab, Route: Inactive Clover Simmons [...] ODT 8 mg, Route: PO, Inactive Tiara [facility] Drug form: 2012 Medical TABDIS, ONCE, Center Dosing Weight 86.364, kg, Priority: STAT, Start date: 07/12/13 6:56:00, Stop date: 07/12/13 6:56:00 Levemir 10 unit, 0.1 mL, Inactive Tiara [facility] Route: SUB-Q, 2012 Medical Drug form: INJ, Center ONCE, Dosing Weight 86.364, kg, Start date: 07/12/13 4:20:00, Stop date: 07/12/13 4:20:00Same as Levemir "single patient use only" Omnipaque 100 mL, Route: Inactive Tiara Fei 350mg/ml IVP, Drug Form: 2012 Medical SOLN, Dosing Center Weight 86.364, kg, ONCALL, STAT, Start date: 07/12/13 4:18:00, Duration: 1 doses or times, Dose=2.2ml/kg, Max [id number]=819th -- "To be infused by Radiology Staff ONLY"Dose=2.2ml/ kg, Max [id number]=864sd -- "To be infused by Radiology Staff [...] mg, 1 tab, PO No Longer Omidvar [place] tablet, enteric Route: PO, Drug Active 2012 [...] mg, 1 tab, PO No Longer Omidvar [place] Route: PO, Drug Active 2012 Medical form: ECTAB, Center BID, Dosing Weight 90, kg, Start date: 04/03/13 9:00:00, Duration: 30 day, Stop date: 05/02/13 17:00:00 metoclopramide 10 mg, 1 tab, PO No Longer Omidvar [place] 10 mg oral Route: PO, Drug Active 2012 Medical tablet form: TAB, TID, Center Dosing Weight 90, kg, Start date: 04/03/13 9:00:00, Duration: 30 day, Stop date: 05/02/13 17:00:00 meloxicam 7.5 mg, 1 tab, PO No Longer Omidvar [facility] Route: PO, Drug Active 2012 Medical form: TAB, BID, Center Dosing Weight 90, kg, Priority: Routine, Start date: 04/03/13 9:00:00, Duration: 30 day, Stop date: 05/02/13 17:00:00 lisinopril 20 mg, Route: PO No Longer Omidvar [facility] PO, Drug form: Active 2012 Medical [...] PO, Drug Active 2012 Medical form: ECTAB, [place] TID, Dosing Weight 90, kg, Start date: 04/03/13 9:00:00, Duration: 30 day, Stop date: 05/02/13 17:00:00 clonazepam 0.5 mg, 1 tab, PO No Longer Omidvar Fei Route: PO, Drug Active 2012 Medical form: TAB, TID, Center Dosing Weight 90, kg, Start date: 04/03/13 9:00:00, Duration: 30 day, Stop date: 05/02/13 17:00:00 NovoLog 6 unit, 0.06 mL, SUB-Q No Longer Omidvar Fei Route: SUB-Q, Active 2012 Medical Drug form: SOLN, [place] TID-Before Meals, Dosing Weight 90, kg, Start [...] PO, Drug Active 2012 Medical form: DRC, [place] Bedtime, Dosing Weight 90, kg, Start date: 04/02/13 23:30:00, Duration: 30 day, Stop date: 05/02/13 21:00:00 Zocor 40 mg, 1 tab, PO No Longer Omidvar [facility] Route: PO, Drug Active 2012 Medical form: TAB, Center Bedtime, Dosing Weight 90, kg, Start date: 04/02/13 21:00:00, Duration: 30 day, Stop date: 05/01/13 21:00:00 Cymbalta 60 mg, 1 cap, PO No Longer Omidvar [facility] Route: PO, Drug Active 2012 Medical form: DRC, Center Bedtime, Dosing Weight 90, kg, Start date: 04/02/13 21:00:00, Duration: 30 day, Stop date: 05/01/13 21:00:00 magnesium oxide 400 mg, 1 tab, PO No Longer Omidvar [facility] Route: PO, Drug Active 2012 Medical form: TAB, Center Daily, Dosing Weight 90, kg, Priority: NOW, Start date: 04/02/13 20:45:00, Duration: 30 day, Stop date: 05/02/13 9:00:00 Levemir 12 unit, 0.12 SUB-Q No Longer Omidvar [facility] mL, Route: Active 2012 Medical SUB-Q, Drug Center form: INJ, BID, Dosing Weight 90, kg, Start date: 04/02/13 20:45:00, Duration: 30 day, Stop date: 05/02/13 17:00:00 hydrALAZINE 10 mg, 0.5 mL, IVP No Longer Omidvar [facility] Route: IVP, Drug Active 2012 Medical form: INJ, Q4H, Center Dosing Weight 90, kg, PRN Hypertension, Start date: 04/02/13 20:37:00, Duration: 30 day, Stop date: 05/02/13 20:36:00 lisinopril 20 mg, 1 tab, PO No Longer Omidvar [facility] Route: PO, Drug Active 2012 Medical form: TAB, Center Daily, Dosing Weight 90, kg, Start date: 04/02/13 20:30:00, Duration: 30 day, Stop date: 05/02/13 9:00:00 metoprolol 12.5 mg, 1 ea, PO No Longer Omidvar [facility] tartrate Route: PO, Drug Active 2012 Medical form: TAB, BID, Center Dosing Weight 90, kg, Start date: 04/02/13 20:30:00, Duration: 30 day, Stop date: 05/02/13 17:00:00 insulin aspart 8 unit, 0.08 mL, SUB-Q No Longer Omidvar [facility] Route: SUB-Q, Active 2012 Medical Drug form: SOLN, Center TID-Before Meals, Dosing Weight 90, kg, PRN Blood Glucose Results, Start date: 04/02/13 20:30:00, Duration: 30 day, Stop date: 05/02/13 20:29:00 glucagon 1 mg, Route: IM, IM No Longer Omidvar [facility] Drug form: Active 2012 Medical PDR/INJ, PRN, Center Dosing Weight 90, kg, PRN Blood Glucose Results, Start date: 04/02/13 20:30:00, Duration: 30 day, Stop date: 05/02/13 20:29:00 Dextrose 50% 25 gm, 50 mL, IVP No Longer Omidvar 04/03[facility] Syringe Route: IVP, Drug Active 2012 Medical Form: INJ, Center Dosing Weight 90, kg, PRN, PRN Blood Glucose Results, Start date: 04/02/13 20:30:00, Duration: 30 day, Stop date: 05/02/13 20:29:00 Insulin regular 8 unit, Route: SUB-Q No Longer Omidvar [facility] SUB-Q, Active 2012 Medical TID-Before Center Meals, Dosing Weight 90, kg, PRN Blood Glucose Results, Start date: 04/02/13 20:29:00, Duration: 30 day, Stop date: 05/02/13 20:28:00 glucagon 1 mg, Route: IM, IM No Longer Omidvar [facility] PRN, Dosing Active 2012 Medical Weight 90, kg, Center PRN Blood Glucose Results, Start date: 04/02/13 20:29:00, Duration: 30 day, Stop date: 05/02/13 20:28:00 Dextrose 50% 50 mL, Route: IVP No Longer Omidvar 04/03[facility] Syringe IVP, Dosing Active 2012 Medical Weight 90, kg, Center PRN, PRN Blood Glucose Results, Start date: 04/02/13 20:29:00, Duration: 30 day, Stop date: 05/02/13 20:28:00 Zofran 4 mg, 2 mL, IV No Longer Omidvar [facility] Route: IV, Drug Active 2012 Medical form: INJ, Q8H, Center Dosing Weight 90, kg, PRN Nausea, Start date: 04/02/13 20:29:00, Duration: 30 day, Stop date: 05/02/13 20:28:00 Maalox Advanced 30 mL, Route: PO No Longer Omidvar [facility] Regular PO, Drug Form: Active 2012 Medical Strength SUSP SUSP, Dosing Center Weight 90, kg, QID, PRN Indigestion, Start date: 04/02/13 20:28:00, Duration: 30 day, Stop date: 05/02/13 20:27:00 Flexeril 10 mg, 1 tab, PO No Longer Omidvar [facility] Route: PO, Drug Active 2012 Medical form: TAB, TID, Center Dosing Weight 90, kg, PRN Spasm, Start date: 04/02/13 20:22:00, Duration: 30 day, Stop date: 05/02/13 20:21:00 acetaminophen-h 1 tab, Route: PO No Longer Omidvar [facility] ydrocodone 325 PO, Drug Form: Active 2012 Medical mg-5 mg oral TAB, Dosing Center tablet Weight 90, kg, Q4H, PRN Pain, Start date: 04/02/13 20:22:00, Duration: 30 day, Stop date: 05/02/13 20:21:00 Phenergan 12.5 mg, 0.5 mL, IVPB No Longer Mitch 04/03[facility] Route: IVPB, Active 2012 Medical Drug form: INJ, Center ONCE, Dosing Weight 90, kg, Start date: 04/02/13 20:11:00, Stop date: 04/02/13 20:11:00 morphine 4 mg, 1 mL, IVP No Longer Mitch [facility] Sulfate Route: IVP, Drug Active 2012 Medical form: INJ, ONCE, Center Dosing Weight 90, kg, Start date: 04/02/13 20:10:00, Stop date: 04/02/13 20:10:00 Phenergan 12.5 mg, 0.5 mL, IVPB No Longer Zhang [facility] Route: IVPB, Active 2012 Medical Drug form: INJ, Center ONCE, Dosing Weight 90, kg, Priority: STAT, Start date: 04/02/13 17:11:00, Stop date: 04/02/13 17:11:00 Zofran 4 mg, 2 mL, IVP No Longer Zhang [facility] Route: IVP, Drug Active 2012 Medical form: INJ, ONCE, Center Dosing Weight 90, kg, Priority: STAT, Start date: 04/02/13 16:52:00, Stop date: 04/02/13 16:52:00 nitroglycerin 0.4 mg, 1 tab, SL No Longer K[facility] Route: SL, Drug Active 2012 Medical form: TAB, Center Q5Min, Dosing Weight 90, kg, PRN Chest Pain, Priority: STAT, Start date: 04/02/13 16:31:00, Duration: 3 doses or times, Stop date: Limited # of times aspirin 325 mg, 1 tab, PO No Longer [facility] Route: PO, Drug Active 2012 Medical form: ECTAB, Center ONCE, Dosing Weight 90, kg, Priority: STAT, Start date: 04/02/13 16:31:00, Stop date: 04/02/13 16:31:00 morphine 4 mg, 1 mL, IVP No Longer K[facility] Sulfate Route: IVP, Drug Active 2012 Medical form: INJ, ONCE, Center Dosing Weight 90, kg, Start date: 04/02/13 16:30:00, Stop date: 04/02/13 16:30:00 erythromycin 1 cap, PO, Q12H, PO Active O[facility] 250 mg oral 14 cap, 2012 Medical enteric coated Substitution Center tablet Allowed, ECTAB GI cocktail 30 ml, Route: PO No Longer [facility] PO, Drug Form: Active 2012 Medical SUSP, Dosing Center Weight 90, kg, ONCE, Routine, Start date: 03/08/13 16:26:00, Stop date: 03/08/13 16:26:00 erythromycin 250 mg, 1 cap, PO No Longer [facility] 250 mg oral Route: PO, Drug Active 2012 Medical enteric coated form: ECCAP, [place] tablet Q12H, Dosing Weight 90, kg, Start date: 03/08/13 12:00:00, Duration: 30 day, Stop date: 04/07/13 9:00:00 magnesium 2 gm, 50 mL, IVPB No Longer [facility]su[facility] sulfate Route: IVPB, Active 2012 Medical Drug form: INJ, Center Q2H, Dosing Weight 90, kg, Total Dose=4 gm, Start date: 03/08/13 12:00:00, Duration: 2 doses or times, Stop date: 03/08/13 14:00:00, For Mg=1.5 - 1.7 mg/dLFor Mg=1.5 - 1.7 mg/dL insulin aspart 5 unit, 0.05 mL, SUB-Q No Longer [facility] Route: SUB-Q, Active 2012 Medical Drug form: SOLN, [place] ONCE, Dosing Weight 90, kg, Start date: 03/08/13 3:17:00, Stop date: 03/08/13 3:17:00 Zocor 40 mg, 1 tab, PO No Longer [facility]on [facility] Route: PO, Drug Active 2012 Medical form: TAB, Center Bedtime, Dosing Weight 90, kg, Start date: 03/07/13 21:00:00, Duration: 30 day, Stop date: 04/05/13 21:00:00 Cymbalta 120 mg, 2 cap, PO No Longer [facility]on [facility] Route: PO, Drug Active 2012 Medical [...] unit, 0.1 mL, SUB-Q No Longer [facility]on [facility] Route: SUB-Q, Active 2012 Medical Drug form: SOLN, Center ONCE, Dosing Weight 90, kg, Start date: 03/07/13 19:16:00, Stop date: 03/07/13 19:16:00 Lyrica 150 mg, 2 cap, PO No Longer [facility]on [facility] Route: PO, Drug Active 2012 Medical form: CAP, BID, Center Dosing Weight 90, kg, Start date: 03/07/13 17:00:00, Duration: 30 day, Stop date: 04/06/13 9:00:00 Protonix 40 mg, 1 tab, PO No Longer [facility]on [facility] Route: PO, Drug Active 2012 Medical form: ECTAB, Center BID, Dosing Weight 90, kg, Start date: 03/07/13 17:00:00, Duration: 30 day, Stop date: 04/06/13 9:00:00 meloxicam 7.5 mg, 1 tab, PO No Longer [facility] Route: PO, Drug Active 2012 Medical form: TAB, Center BID-Meals, Dosing Weight 90, kg, Start date: 03/07/13 17:00:00, Duration: 30 day, Stop date: 04/06/13 8:00:00 Flexeril 10 mg, 1 tab, PO No Longer [facility] Route: PO, Drug Active 2012 Medical form: TAB, BID, Center Dosing Weight 90, kg, Start date: 03/07/13 17:00:00, Duration: 30 day, Stop date: 04/06/13 9:00:00 NovoLog FlexPen 6 unit, 0.06 mL, SUB-Q No Longer Osu[facility]wu [facility] Route: SUB-Q, Active 2012 Medical Drug form: SOLN, Center TID-Before Meals, Start date: 03/07/13 16:30:00, Duration: 30 day, Stop date: 04/06/13 11:30:00 Humalog 6 unit, Route: SUB-Q No Longer [facility]on [facility] SUB-Q, Active 2012 Medical TID-Before Center Meals, Dosing Weight 90, kg, Start date: 03/07/13 16:30:00, Duration: 30 day, Stop date: 04/06/13 11:30:00 heparin 5,000 unit, 1 SUB-Q No Longer [facility]on [facility] mL, Route: Active 2012 Medical SUB-Q, Drug Center form: INJ, Q8H, Dosing Weight 90, kg, Start date: 03/07/13 16:00:00, Duration: 30 day, Stop date: 04/06/13 8:00:00 Effient 10 mg, 1 tab, PO No Longer [facility]on [facility] Route: PO, Drug Active 2012 Medical form: TAB, Center Daily, Dosing Weight 90, kg, Start date: 03/07/13 13:30:00, Duration: 30 day, Stop date: 04/06/13 9:00:00 magnesium oxide 400 mg, 1 tab, PO No Longer [facility] Route: PO, Drug Active 2012 Medical form: TAB, Center Daily, Dosing Weight 90, kg, Start date: 03/07/13 13:30:00, Duration: 30 day, Stop date: 04/06/13 9:00:00 lisinopril 20 mg, 1 tab, PO No Longer [facility]on [facility] Route: PO, Drug Active 2012 Medical form: TAB, Center Daily, Dosing Weight 90, kg, Start date: 03/07/13 13:30:00, Duration: 30 day, Stop date: 04/06/13 9:00:00 Reglan 5 mg, 1 tab, PO No Longer [facility]on [facility] Route: PO, Drug Active 2012 Medical form: TAB, TID, Center Dosing Weight 90, kg, Start date: 03/07/13 13:00:00, Duration: 30 day, Stop date: 04/06/13 9:00:00 ferrous sulfate 325 mg, 1 tab, PO No Longer [facility]on [facility] Route: PO, Drug Active 2012 Medical form: ECTAB, Center TID, Dosing Weight 90, kg, Start date: 03/07/13 13:00:00, Duration: 30 day, Stop date: 04/06/13 9:00:00 clonazepam 0.5 mg, 1 tab, PO No Longer [facility]on [facility] Route: PO, Drug Active 2012 Medical form: TAB, TID, Center Dosing Weight 90, kg, Start date: 03/07/13 13:00:00, Duration: 30 day, Stop date: 04/06/13 9:00:00 NovoLog 6 unit, SUB-Q, SUB-Q No Longer [place] TID-Before Active 2012 Medical Meals, Center Substitution Allowed Levemir 12 unit, SUB-Q, SUB-Q Active [place] BID, 2012 Medical Substitution Center Allowed NS 1,000 mL 1,000 mL, Rate: IV No Longer [facility] [place] 125 ml/hr, Active 2012 Medical Infuse over: 8 Center hr, Route: IV, Dosing Weight 90 kg, Total Volume: 1,000, Start date: 03/07/13 12:19:00, Duration: 30 day, Stop date: 04/06/13 12:18:00 insulin aspart 2 unit, 0.02 mL, SUB-Q No Longer [facility] Route: SUB-Q, Active 2012 Medical Drug form: SOLN, Center TID-Before Meals, Dosing Weight 90, kg, PRN Blood Glucose Results, Start date: 03/07/13 11:55:00, Duration: 30 day, Stop date: 04/06/13 11:54:00 glucagon 1 mg, Route: IM, IM No Longer [facility]on [facility] Drug form: Active 2012 Medical PDR/INJ, PRN, Center Dosing Weight 90, kg, PRN Blood Glucose Results, Start date: 03/07/13 11:55:00, Duration: 30 day, Stop date: 04/06/13 11:54:00 Dextrose 50% 12.5 gm, 25 mL, IVP No Longer [facility]on [facility] Syringe Route: IVP, Drug Active 2012 Medical Form: INJ, Center Dosing Weight 90, kg, PRN, PRN Blood Glucose Results, Start date: 03/07/13 11:55:00, Duration: 30 day, Stop date: 04/06/13 11:54:00 Phenergan 12.5 mg, 0.5 mL, IVPB No Longer [facility] Route: IVPB, Active 2012 Medical Drug form: INJ, Center Q4H, Dosing Weight 90, kg, PRN Nausea & Vomiting, Start date: 03/07/13 11:53:00, Duration: 30 day, Stop date: 04/06/13 11:52:00 albuterol 2.49 mg, 3 mL, NEB No Longer [facility]on [facility] 0.083% Route: NEB, Drug Active 2012 Medical inhalation form: SOLN, Center solution RQ4H, Dosing Weight 90, kg, PRN as needed for wheezing, Start date: 03/07/13 11:53:00, Duration: 30 day, Stop date: 04/06/13 11:52:00 Zofran 4 mg, 2 mL, IVP No Longer [facility] Route: IVP, Drug Active 2012 Medical form: INJ, Q4H, Center Dosing Weight 90, kg, PRN Nausea, Start date: 03/07/13 11:53:00, Duration: 30 day, Stop date: 04/06/13 11:52:00 acetaminophen-h 1 tab, Route: PO No Longer [facility]on [facility] ydrocodone 325 PO, Drug Form: Active 2012 Medical mg-10 mg oral TAB, Dosing Center tablet Weight 90, kg, Q4H, PRN Pain Score 4-6, Start date: 03/07/13 11:51:00, Duration: 30 day, Stop date: 04/06/13 11:50:00 acetaminophen-h 1 tab, Route: PO No Longer [facility]on [facility] ydrocodone 325 PO, Drug Form: Active 2012 Medical mg-5 mg oral TAB, Dosing Center tablet Weight 90, kg, Q4H, PRN Pain Score 1-3, Start date: 03/07/13 11:51:00, Duration: 30 day, Stop date: 04/06/13 11:50:00 acetaminophen 650 mg, 2 tab, PO No Longer [facility]on [facility] Route: PO, Drug Active 2012 Medical form: TAB, Q4H, Center Dosing Weight 90, kg, PRN Pain 1-3/Temp > 100.4 F, Start date: 03/07/13 11:51:00, Duration: 30 day, Stop date: 04/06/13 11:50:00 morphine 2 mg, 1 mL, IVP No Longer Talon [facility] Sulfate Route: IVP, Drug Active 2012 Medical form: INJ, Q4H, Center Dosing Weight 90, kg, PRN Pain Score 7-10, Start date: 03/07/13 11:51:00, Duration: 30 day, Stop date: 04/06/13 11:50:00 docusate 100 mg, 1 cap, PO No Longer Talon [facility] Route: PO, Drug Active 2012 Medical form: CAP, BID, Center Dosing Weight 90, kg, PRN Constipation, Start date: 03/07/13 11:51:00, Duration: 30 day, Stop date: 04/06/13 11:50:00 Levemir 12 unit, 0.12 SUB-Q No Longer [place] [facility] mL, Route: Active 2012 Medical SUB-Q, Drug Center form: INJ, ONCE, Dosing Weight 90, kg, Start date: 03/07/13 6:10:00, Stop date: 03/07/13 6:10:00 lidocaine-epi 1 ml, Route: SUB-Q No Longer Kiki [facility] [id number] SUB-Q, Drug Active 2012 Medical Form: SOLN, Center Dosing Weight 90, kg, ONCE, STAT, Start date: 03/07/13 5:18:00, Stop date: 03/07/13 5:18:00 Insulin regular 99 mL, Rate: IVPB No Longer Kiki [facility] 100 unit + Start Insulin Active [...] gm, 25 mL, IVP No Longer Kiki [facility] Syringe Route: IVP, Drug Active 2012 Medical Form: INJ, Center Dosing Weight 90, kg, PRN, PRN Blood Glucose Results, Start date: 03/07/13 5:13:00, Duration: 30 day, Stop date: 04/06/13 5:12:00 NS (Bolus) IV 1,000 mL, Rate: IV No Longer [place] [place] 1,000 mL 1,000 ml/hr, 2012 Medical Infuse over: 1 Center hr, Route: IV, Dosing Weight 90 kg, Total Volume: 1,000, Priority: STAT, Start date: 03/07/13 2:36:00, Duration: 1 doses or times, Stop date: 03/07/13 3:35:00, Bolus DoseBolus Dose magnesium 2 gm, 50 mL, IVPB No Longer Kiki [place] sulfate Route: IVPB, 2012 Medical Drug form: INJ, Center ONCE, Dosing Weight 90, kg, Start date: 03/07/13 2:35:00, Stop date: 03/07/13 2:35:00 Insulin regular 10 unit, 0.1 mL, SUB-Q No Longer K[facility] Route: SUB-Q, 2012 Medical Drug form: SOLN, Center ONCE, Dosing Weight 90, kg, Priority: STAT, Start date: 03/07/13 2:16:00, Stop date: 03/07/13 2:16:00 Reglan 10 mg, 2 mL, IVP No Longer [place] [place] Route: IVP, Drug 2012 Medical form: INJ, ONCE, Center Dosing Weight 90, kg, Priority: STAT, Start date: 03/07/13 2:16:00, Stop date: 03/07/13 2:16:00 NS 1,000 mL 1,000 mL, Rate: IV No Longer [place] [place] 150 ml/hr, 2012 Medical Infuse over: 6.7 Center hr, Route: IV, Dosing Weight 90 kg, Total Volume: 1,000, Start date: 03/07/13 2:15:00, Duration: 30 day, Stop date: 04/06/13 2:14:00 droperidol 1.25 mg, Route: IVP No Longer K[facility] IVP, ONCE, 2012 Medical Dosing Weight Center 90, kg, PRN Nausea & Vomiting, Start date: 03/07/13 0:48:00 D5W 1/2NS 1,000 1,000 mL, Rate: IV No Longer [facility] [place] mL 125 ml/hr, 2012 Medical Infuse over: 8 Center hr, Route: IV, Dosing Weight 90 kg, Total Volume: 1,000, Start date: 03/07/13 0:43:00, Duration: 30 day, Stop date: 04/06/13 0:42:00 Insulin regular 4 unit, 0.04 mL, SUB-Q No Longer [facility] Route: SUB-Q, Active 2012 Medical Drug form: SOLN, Center Sliding Scale, Dosing Weight 90, kg, PRN Blood Glucose Results, Start date: 03/07/13 0:01:00, Duration: 30 day, Stop date: 04/06/13 0:00:00 glucagon 1 mg, Route: IM, IM No Longer K[facility] Drug form: Active 2012 Medical PDR/INJ, PRN, Center Dosing Weight 90, kg, PRN Blood Glucose Results, Start date: 03/07/13 0:01:00, Duration: 30 day, Stop date: 04/06/13 0:00:00 Dextrose 50% 25 gm, 50 mL, IVP No Longer [facility] Syringe Route: IVP, Drug Active 2012 Medical Form: INJ, Center Dosing Weight 90, kg, PRN, PRN Blood Glucose Results, Start date: 03/07/13 0:01:00, Duration: 30 day, Stop date: 04/06/13 0:00:00 NS 1,000 mL 1,000 mL, Rate: IV No Longer [facility] 125 ml/hr, Active 2012 Medical Infuse over: 8 Center hr, Route: IV, Dosing Weight 90 kg, Total Volume: 1,000, Start date: 03/06/13 23:21:00, Duration: 30 day, Stop date: 04/05/13 23:20:00 NS (Bolus) IV 1,000 mL, Rate: IV No Longer K[facility] 1,000 mL 1,000 ml/hr, Active 2012 Medical Infuse over: 1 Center hr, Route: IV, Dosing Weight 90 kg, Total Volume: 1,000, Priority: STAT, Start date: 03/06/13 23:21:00, Duration: 1 doses or times, Stop date: 03/07/13 0:20:00, Bolus DoseBolus Dose [place] 5/325 1 tab, PO, Q6H, PO No Longer [facility] oral tablet PRN, 30 tab, Active 2012 Medical Substitution Center Allowed, Maintenance ferrous sulfate 325 mg, 1 tab, PO Active [place] [facility] 325 mg oral PO, TID, 30 tab, 2012 Medical enteric coated Substitution Center tablet Allowed, ECTAB acetaminophen-h 1 tab, PO, Q4H, PO Active [facility] ydrocodone 500 PRN, for pain, 2012 Medical mg-7.5 mg oral Substitution Center tablet Allowed, Maintenance, TAB meloxicam 7.5 7.5 mg, 1 tab, PO Active [place] [facility] mg oral tablet PO, BID, WITH 2012 Medical FOOD, 30 tab, Center Substitution Allowed, TABWITH FOOD Zocor 40 mg 40 mg, 1 tab, PO Active [place] [facility] oral tablet PO, Bedtime, 30 2012 Medical tab, Center Substitution Allowed, Maintenance ProAir HFA 90 Substitution Active [facility] mcg/inh Allowed, 2012 Medical inhalation Maintenance Center aerosol with adapter Flexeril 10 mg 10 mg, 1 tab, PO Active [place] [facility] oral tablet PO, TID, PRN, 30 2012 Medical tab, for spasm, Center Substitution Allowed, TAB Protonix 40 mg 40 mg, 1 tab, PO Active [place] [facility] oral enteric PO, BID, 30 tab, 2012 Medical coated tablet Substitution Center Allowed, ECTAB Lyrica 150 mg 150 mg, 1 cap, PO Active [place] [facility] oral capsule PO, BID, 90 cap, 2012 [facility] Substitution Center Allowed, CAP Flagyl 500 mg 500 mg, 1 tab, PO No Longer [facility] oral tablet PO, Q6H, 30 tab, Active 2012 [facility] Substitution [place] Allowed metoclopramide 10 mg, 1 tab, PO Active [place] [facility] 10 mg oral PO, TID, 56 tab, 2012 Medical tablet Substitution Center Allowed, TAB NS (Bolus) IV 1,000 mL, Rate: IV No Longer K[facility] 1,000 mL 1,000 ml/hr, Active 2012 Medical Infuse over: 1 Center hr, Route: IV, Dosing Weight 90 kg, Total Volume: 1,000, Priority: STAT, Start date: 03/06/13 21:27:00, Duration: 1 doses or times, Stop date: 03/06/13 22:26:00, Bolus DoseBolus Dose morphine 4 mg, 1 mL, IVP No Longer K[facility] Sulfate Route: IVP, Drug Active 2012 Medical form: INJ, ONCE, Center Dosing Weight 90, kg, Start date: 03/06/13 21:27:00, Stop date: 03/06/13 21:27:00 Phenergan 12.5 mg, 0.5 mL, IVPB No Longer [facility] Route: IVPB, Active 2012 Medical Drug form: INJ, Center ONCE, Dosing Weight 90, kg, Priority: STAT, Start date: 03/06/13 21:26:00, Stop date: 03/06/13 21:26:00 ergocalciferol 50,000 IntlUnit, PO No Longer [place] [facility] 1 cap, Route: Active 2012 Medical PO, Drug form: Center CAP, qWeek, Dosing Weight 100, kg, Start date: 12/07/12 9:00:00, Duration: 30 day, Stop date: 01/04/13 9:00:00 erythromycin 250 mg, 1 tab, PO Active [facility] stearate 250 mg PO, Q6H, 56 tab, 2012 Medical oral tablet Substitution Center Allowed, TAB Protonix 40 mg 40 mg, 1 tab, PO Active [facility] oral enteric PO, Daily, 2012 Medical coated tablet tab, Center Substitution Allowed, ECTAB pravastatin 80 80 mg, 1 tab, PO Active [facility] mg oral tablet PO, Daily, 2012 Medical tab, Center Substitution Allowed, TAB insulin detemir 14 unit, 0.14 SUB-Q Active [facility] 100 units/mL mL, SUB-Q, 2012 Medical subcutaneous Bedtime, 100 mL, [place] solution Substitution Allowed, INJ insulin detemir 16 unit, 0.16 SUB-Q Active [facility] 100 units/mL mL, SUB-Q, 2012 Medical subcutaneous Daily, 100 mL, [place] solution Substitution Allowed, INJ Protonix 40 mg, Route: IVP No Longer [facility] [facility] IVP, Drug form: Active 2012 Medical INJ, Daily, Center Dosing Weight 100, kg, Priority: NOW, Start date: 12/06/12 16:52:00, Duration: 30 day, Stop date: 01/05/13 9:00:00 insulin detemir 16 unit, 0.16 SUB-Q No Longer [place] [facility] mL, Route: Active 2012 Medical SUB-Q, Drug Center form: INJ, Daily, Dosing Weight 100, kg, Start date: 12/06/12 9:00:00, Stop date: 01/04/13 9:00:00 [place] 7.5/325 1 tab, Route: PO No Longer [place] [facility] oral tablet PO, Drug Form: Active 2012 Medical TAB, Dosing Center Weight 100, kg, ONCE, Start date: 12/06/12 0:19:00, Stop date: 12/06/12 0:19:00 Pravachol 80 mg, 4 tab, PO No Longer [facility] Route: PO, Drug Active 2012 Medical form: TAB, Center Bedtime, Start date: 12/05/12 21:00:00, Duration: 30 day, Stop date: 01/03/13 21:00:00 insulin detemir 14 unit, 0.14 SUB-Q No Longer [place] [facility] mL, Route: Active 2012 Medical SUB-Q, Drug Center form: INJ, Bedtime, Dosing Weight 100, kg, Start date: 12/05/12 21:00:00, Stop date: 01/03/13 21:00:00 morphine 4 mg, 1 mL, IVP No Longer [facility] Sulfate Route: IVP, Drug Active 2012 Medical form: INJ, ONCE, Center Dosing Weight 100, kg, Start date: 12/05/12 16:51:00, Stop date: 12/05/12 16:51:00 erythromycin + 250 mg, Route: IVPB No Longer [facility] Sodium Chloride IVPB, Q8H, Active 2012 Medical 0.9% IV 100 mL Dosing Weight Center 100, kg, Start date: 12/05/12 16:00:00, Duration: 30 day, Stop date: 01/04/13 8:00:00 potassium 20 mEq, 100 mL, IVPB No Longer [facility] chloride Route: IVPB, Active 2012 Medical [...] 40 mEq, Route: IV No Longer [facility] [place] chloride IV, ONCE, Dosing Active 2012 Medical Weight 100, kg, Center Start date: 12/04/12 8:20:00, Stop date: 12/04/12 8:20:00 Phenergan 25 mg, 1 supp, AR No Longer [facility] [place] Route: AR, Drug Active 2012 Medical form: SUPP, Q4H, Center Dosing Weight 100, kg, PRN Nausea & Vomiting, Start date: 12/04/12 7:58:00, Duration: 30 day, Stop date: 01/03/13 7:57:00 Dextrose 50% 25 gm, 50 mL, IVP No Longer [facility] Syringe Route: IVP, Drug Active 2012 Medical Form: INJ, Center Dosing Weight 100, kg, PRN, PRN Blood Glucose Results, Start date: 12/04/12 7:48:00, Duration: 30 day, Stop date: 01/03/13 7:47:00 glucagon 1 mg, Route: IM, IM No Longer [facility] [place] Drug form: Active 2012 Medical PDR/INJ, PRN, Center Dosing Weight 100, kg, PRN Blood Glucose Results, Start date: 12/04/12 7:48:00, Duration: 30 day, Stop date: 01/03/13 7:47:00 insulin aspart 4 unit, 0.04 mL, SUB-Q No Longer [place] Route: SUB-Q, Active 2012 Medical Drug form: SOLN, Center Bedtime, Dosing Weight 100, kg, PRN Blood Glucose Results, Start date: 12/04/12 7:48:00, Duration: 30 day, Stop date: 01/03/13 7:47:00 Protonix 40 mg, Route: IV No Longer [place] IV, Drug form: Active 2012 Medical INJ, ONCE, Center Dosing Weight 100, kg, Start date: 12/04/12 3:12:00, Stop date: 12/04/12 3:12:00 potassium 20 mEq, 100 mL, IVPB No Longer [facility] [facility] chloride Route: IVPB, Active 2012 Medical Q2H, Start date: Center 12/03/12 8:00:00, Stop date: 12/03/12 11:00:00 potassium 40 mEq, Route: IV No Longer [facility] [facility] chloride IV, ONCE, Dosing Active 2012 Medical Weight 100, kg, Center Start date: 12/03/12 7:02:00, Stop date: 12/03/12 7:02:00 NS 1,000 mL 1,000 mL, Rate: IV No Longer [facility] [facility] 125 ml/hr, Active 2012 Medical Infuse over: 8 Center hr, Route: IV, kg, Total Volume: 1,000, Start date: 12/02/12 16:54:00, Duration: 30 day, Stop date: 01/01/13 16:53:00 NS (Bolus) IV 1,000 mL, Rate: IV No Longer [facility] 1,000 mL 1,000 ml/hr, Active 2012 Medical Infuse over: 1 Center hr, Route: IV, kg, Total Volume: 1,000, Priority: STAT, Start date: 12/02/12 13:12:00, Duration: 1 doses or times, Stop date: 12/02/12 14:11:00, Bolus DoseBolus Dose NS (Bolus) IV 1,000 mL, Rate: IV No Longer [facility] 1,000 mL 1,000 ml/hr, Active 2012 Medical Infuse over: 1 Center hr, Route: IV, kg, Total Volume: 1,000, Priority: STAT, Start date: 12/02/12 12:10:00, Duration: 1 doses or times, Stop date: 12/02/12 13:09:00, Bolus DoseBolus Dose insulin detemir 20 unit, 0.2 mL, SUB-Q No Longer [place] [facility] Route: SUB-Q, Active 2012 Medical Drug form: INJ, Center BID, Dosing Weight 100, kg, Start date: 12/02/12 9:00:00, Duration: 30 day, Stop date: 12/31/12 21:00:00 calcium 1,000 mg, 10 mL, IVPB No Longer [place] [facility] chloride + Route: IVPB, Active 2012 Medical Sodium Chloride ONCE, Start Center 0.9% IV 100 mL date: 12/02/12 5:08:00, Stop date: 12/02/12 5:08:00 ceftriaxone 1 gm, Route: IVPB No Longer [facility] [facility] IVPB, Drug form: Active 2012 Medical PDR/INJ, Center [id number], Dosing Weight 100, kg, Start date: 12/02/12 5:00:00, Duration: 30 day, Stop date: 12/31/12 5:00:00 calcium 1,000 mg, Route: IVPB No Longer [place] [facility] gluconate IVPB, Drug form: Active 2012 Medical INJ, ONCE, Center Dosing Weight 100, kg, Start date: 12/02/12 5:00:00, Stop date: 12/02/12 5:00:00 Dextrose 50% 25 mL, Route: IVP No Longer [place] [facility] Syringe IVP, Dosing Active 2012 Medical Weight 100, kg, Center PRN, PRN Blood Glucose Results, Start date: 12/02/12 4:51:00, Duration: 30 day, Stop date: 01/01/13 4:50:00 Insulin regular 100 mL, Rate: IVPB No Longer [place] [facility] 100 unit + Start Insulin Active [...] 4 mg, Route: IVP No Longer [place] [facility] IVP, Drug form: Active 2012 Medical INJ, ONCE, Center Dosing Weight 100, kg, Priority: STAT, Start date: 12/02/12 4:47:00, Stop date: 12/02/12 4:47:00 normal saline 1,000 mL, Rate: IV No Longer [place] [facility] 0.9% IV 1,000 1,000 ml/hr, Active 2012 Medical mL Infuse over: 1 Center hr, Route: IV, kg, Total Volume: 1,000, Start date: 12/02/12 3:19:00, Duration: 1 doses or times, Stop date: 12/02/12 4:18:00 Insulin regular 6 unit, 0.06 mL, IV No Longer [place] [facility] Route: IV, Drug Active 2012 Medical form: SOLN, Center ONCE, Dosing Weight 100, kg, Priority: STAT, Start date: 12/02/12 3:19:00, Stop date: 12/02/12 3:19:00 insulin aspart 3 unit, 0.03 mL, SUB-Q No Longer [place] [facility] Route: SUB-Q, Active 2012 Medical Drug form: SOLN, Center Bedtime, Dosing Weight 100, kg, PRN Blood Glucose Results, Start date: 12/01/12 13:23:00, Duration: 30 day, Stop date: 12/31/12 13:22:00 NS 1,000 mL 1,000 mL, Rate: IV No Longer [place] [facility] 150 ml/hr, Active 2012 Medical Infuse over: 6.7 Center hr, Route: IV, kg, Total Volume: 1,000, Priority: NOW, Start date: 12/01/12 13:10:00, Duration: 1 doses or times, Stop date: 12/01/12 19:51:00 Insulin regular 2 unit, 0.02 mL, SUB-Q No Longer [facility] Route: SUB-Q, Active 2012 Medical Drug form: SOLN, Center Bedtime, Dosing Weight 100, kg, PRN Blood Glucose Results, Start date: 12/01/12 13:08:00, Duration: 30 day, Stop date: 12/31/12 13:07:00 insulin aspart 4 unit, 0.04 mL, SUB-Q No Longer [facility] Route: SUB-Q, Active 2012 Medical Drug form: SOLN, Center TID-Before Meals, Dosing Weight 100, kg, PRN Blood Glucose Results, Start date: 12/01/12 13:08:00, Duration: 30 day, Stop date: 12/31/12 13:07:00 Dextrose 50% 25 gm, 50 mL, IVP No Longer [facility] Syringe Route: IVP, Drug Active 2012 Medical Form: INJ, Center Dosing Weight 100, kg, PRN, PRN Blood Glucose Results, Start date: 12/01/12 13:08:00, Duration: 30 day, Stop date: 12/31/12 13:07:00 glucagon 1 mg, Route: IM, IM No Longer [facility] Drug form: Active 2012 Medical PDR/INJ, [...] unit, 0.01 mL, SUB-Q No Longer [facility] Route: SUB-Q, Active 2012 Medical Drug form: SOLN, Center Sliding Scale, Dosing Weight 100, kg, PRN Blood Glucose Results, Start date: 11/30/12 18:36:00, Duration: 30 day, Stop date: 12/30/12 18:35:00 insulin detemir 16 unit, 0.16 SUB-Q No Longer [place] 03/27[facility] mL, Route: Active 2012 Medical SUB-Q, Drug Center form: INJ, Q12H, Dosing Weight 100, kg, Start date: 11/30/12 14:00:00, Duration: 30 day, Stop date: 12/30/12 9:00:00 Zofran 4 mg, 2 mL, IV No Longer [facility] Route: IV, Drug Active 2012 Medical form: INJ, Q6H, Center Dosing Weight 100, kg, PRN Nausea, Start date: 11/30/12 13:32:00, Duration: 30 day, Stop date: 12/30/12 13:31:00 insulin aspart 10 unit, 0.1 mL, SUB-Q No Longer [facility] Route: SUB-Q, Active 2012 Medical Drug form: SOLN, Center TID-Before Meals, Dosing Weight 100, kg, PRN Blood Glucose Results, Start date: 11/30/12 13:26:00, Duration: 30 day, Stop date: 12/30/12 13:25:00 Zofran 4 mg, 2 mL, IV No Longer [place] [facility] Route: IV, Drug Active 2012 Medical form: INJ, Q8H, Center Dosing Weight 100, kg, PRN Nausea, Start date: 11/30/12 11:58:00, Duration: 30 day, Stop date: 12/30/12 11:57:00 Zofran 4 mg, 2 mL, IVP No Longer [facility] Route: IVP, Drug Active 2012 Medical form: INJ, ONCE, Center Dosing Weight 100, kg, Priority: NOW, Start date: 11/30/12 11:57:00, Stop date: 11/30/12 11:57:00 potassium 2 pkt, Route: PO No Longer [facility] phosphate-sodiu PO, Drug Form: Active 2012 Medical m phosphate 250 PDR/REC, ONCE, Center mg-278 mg-164 Start date: mg oral powder 11/30/12 10:00:00, Stop date: 11/30/12 10:00:00 Dextrose 5% 1,000 mL, Rate: IV No Longer [facility] with 0.45% NaCl 150 ml/hr, Active 2012 [...] heparin 5,000 unit, 1 SUB-Q No Longer [facility] 11/30[facility] mL, Route: Active 2012 Medical SUB-Q, Drug Center form: INJ, Q8H, Dosing Weight 100, kg, Start date: 11/30/12 8:30:00, Duration: 30 day, Stop date: 12/30/12 8:00:00 magnesium 2 gm, Route: IVPB No Longer [facility] sulfate IVPB, Drug form: Active 2012 [...] 5000 5,000 unit, SUB-Q No Longer [facility] [place] units/mL Route: SUB-Q, Active 2012 Medical injectable Drug form: INJ, Center solution Q8H, Dosing Weight 100, kg, Start date: 11/30/12 8:00:00, Duration: 30 day, Stop date: 12/30/12 0:00:00 insulin aspart 10 unit, 0.1 mL, SUB-Q No Longer [facility] Route: SUB-Q, Active 2012 Medical Drug form: SOLN, Center TID-Before Meals, Dosing Weight 100, kg, PRN Blood Glucose Results, Start date: 11/30/12 7:57:00, Duration: 30 day, Stop date: 12/30/12 7:56:00 glucagon 1 mg, Route: IM, IM No Longer [facility] Drug form: Active 2012 Medical PDR/INJ, PRN, Center Dosing Weight 100, kg, PRN Blood Glucose Results, Start date: 11/30/12 7:57:00, Duration: 30 day, Stop date: 12/30/12 7:56:00 Dextrose 50% 25 gm, 50 mL, IVP No Longer [facility] Syringe Route: IVP, Drug Active 2012 [...] 5,000 unit, 1 SUB-Q No Longer [place] 11/30[facility] units/mL mL, Route: Active 2012 Medical injectable SUB-Q, Drug Center solution form: INJ, Q8H, Dosing Weight 100, kg, Start date: 11/30/12 0:00:00, Duration: 30 day, Stop date: 12/29/12 16:00:00 hydrALAZINE 10 mg, 0.5 mL, IV No Longer [facility] Route: IV, Drug Active 2012 Medical form: INJ, Q4H, Center Dosing Weight 100, kg, PRN Hypertension, Start date: 11/29/12 22:56:00, Duration: 30 day, Stop date: 12/29/12 22:55:00 simvastatin 40 mg, 1 tab, PO No Longer [facility] Route: PO, Drug Active 2012 Medical form: TAB, Center Bedtime, Dosing Weight 101.364, kg, Start date: 11/29/12 21:00:00, Duration: 30 day, Stop date: 12/28/12 21:00:00 Cymbalta 60 mg, 1 cap, PO No Longer [facility] Route: PO, Drug Active 2012 Medical form: DRC, Center Bedtime, Dosing Weight 101.364, kg, Start date: 11/29/12 21:00:00, Stop date: 12/28/12 21:00:00 ceftriaxone 1 gm, Route: IVPB No Longer [facility] IVPB, Drug form: Active 2012 Medical PDR/INJ, Center [id number], Dosing Weight 100, kg, Start date: 11/29/12 20:00:00, Duration: 30 day, Stop date: 12/28/12 20:00:00 hydrALAZINE 5 mg, 0.25 mL, IV No Longer [facility] Route: IV, Drug Active 2012 Medical form: INJ, Q4H, Center Dosing Weight 100, kg, PRN Hypertension, Start date: 11/29/12 19:42:00, Duration: 30 day, Stop date: 12/29/12 19:41:00 Phenergan 12.5 mg, 0.5 mL, IVPB No Longer [facility] Route: IVPB, Active 2012 Medical Drug form: INJ, Center Q4H, Dosing Weight 100, kg, PRN Nausea & Vomiting, Start date: 11/29/12 17:56:00, Duration: 30 day, Stop date: 12/29/12 17:55:00 clonazepam 0.5 mg, 1 tab, PO No Longer [facility] [place] Route: PO, Drug Active 2012 Medical form: [...] gm, 150 mL, IVPB No Longer [facility] sulfate 2 gm in Route: IVPB, Active [...] gm, 50 ml, IVP No Longer [facility] Syringe Route: [...] 1,000 mL, Rate: IV No Longer [facility] mL 200 ml/hr, Active 2012 Medical Infuse over: 5 Center hr, Route: IV, kg, Total Volume: 1,000, Start date: 11/29/12 14:41:00, Stop date: 12/29/12 14:40:00 Sodium Chloride 1,000 mL, Rate: IV No Longer [facility] 0.9% IV 1,000 200 ml/hr, Active 2012 Medical mL Infuse over: 5 Center hr, Route: IV, kg, Total Volume: 1,000, Start date: 11/29/12 14:41:00, Stop date: 12/29/12 14:45:00 Insulin regular 99 mL, Rate: IV No Longer [place] 11/29[facility] 100 unit + Start Insulin Active 2012 Medical Sodium Chloride Drip Per ICU Center 0.9% IV 99 mL protocol, Route: IV, kg, Total Volume: 100, Start date: 11/29/12 12:42:00, Stop date: 12/29/12 12:41:00 Insulin regular 100 mL, Rate: IVPB No Longer [facility] 11/29[facility] 100 unit + Start Insulin Active 2012 [...] gm, 25 mL, IVP No Longer [facility] Syringe Route: IVP, Drug Active 2012 Medical Form: INJ, Center Dosing Weight 100, kg, PRN, PRN Blood Glucose Results, Start date: 11/29/12 12:39:00, Duration: 30 day, Stop date: 12/29/12 12:38:00 Zofran 4 mg, 2 mL, IV No Longer [facility] [place] Route: IV, Drug Active 2012 Medical form: INJ, Q4H, Center Dosing Weight 100, kg, PRN as needed for nausea/vomiting, Start date: 11/29/12 9:07:00, Duration: 30 day, Stop date: 12/29/12 9:06:00 NIFEdipine 90 mg, 1 tab, PO No Longer [place] [facility] Route: PO, Drug Active 2012 Medical form: ERTAB, Center Daily, Dosing Weight 101.364, kg, Start date: 11/29/12 9:00:00, Duration: 30 day, Stop date: 12/28/12 9:00:00 clonazepam 0.5 mg, 1 tab, PO No Longer [facility] [place] Route: PO, Drug Active 2012 Medical form: TAB, TID, Center Dosing Weight 101.364, kg, Start date: 11/29/12 9:00:00, Duration: 30 day, Stop date: 12/28/12 17:00:00 lisinopril 20 mg, 1 tab, PO No Longer [place] [facility] Route: PO, Drug Active 2012 Medical form: TAB, Q12H, Center Dosing Weight 101.364, kg, Start date: 11/29/12 9:00:00, Duration: 30 day, Stop date: 12/28/12 21:00:00 magnesium oxide 400 mg, 1 tab, PO No Longer [place] [facility] Route: PO, Drug Active 2012 Medical form: TAB, Center Daily, Dosing Weight 101.364, kg, Start date: 11/29/12 9:00:00, Duration: 30 day, Stop date: 12/28/12 9:00:00 Effient 10 mg, 1 tab, PO No Longer [facility] Route: PO, Drug Active 2012 Medical form: TAB, Center Daily, Dosing Weight 101.364, kg, Start date: 11/29/12 9:00:00, Duration: 30 day, Stop date: 12/28/12 9:00:00 Levemir 8 unit, 0.08 mL, SUB-Q No Longer [place] [facility] Route: SUB-Q, Active 2012 Medical Drug [...] mg, 0.4 mL, SUB-Q No Longer [facility] Route: SUB-Q, Active 2012 Medical Drug form: INJ, Center [id number], Dosing Weight 101.364, kg, Start date: 11/29/12 4:00:00, Duration: 30 day, Stop date: 12/28/12 4:00:00 Phenergan 12.5 mg, 0.25 IVPB No Longer [facility] mL, Route: IVPB, Active 2012 Medical Drug form: INJ, Center Q4H, Dosing Weight 101.364, kg, Start date: 11/29/12 4:00:00, Duration: 30 day, Stop date: 12/29/12 0:00:00 tramadol 50 mg 50 mg, 1 tab, PO No Longer [place] [facility] oral tablet Route: PO, Drug Active 2012 Medical form: TAB, Q4H, Center Dosing Weight 101.364, kg, PRN as needed for pain, Start date: 11/29/12 3:46:00, Duration: 30 day, Stop date: 12/29/12 3:45:00 insulin aspart 3 unit, 0.03 mL, SUB-Q No Longer [facility] Route: SUB-Q, Active 2012 Medical Drug form: SOLN, Center TID-Before Meals, Dosing Weight 101.364, kg, PRN Blood Glucose Results, Start date: 11/29/12 3:26:00, Duration: 30 day, Stop date: 12/29/12 3:25:00 Dextrose 50% 12.5 gm, 25 mL, IVP No Longer [facility] Syringe Route: IVP, Drug Active 2012 Medical Form: INJ, Center Dosing Weight 101.364, kg, PRN, PRN Blood Glucose Results, Start date: 11/29/12 3:26:00, Duration: 30 day, Stop date: 12/29/12 3:25:00 glucagon 1 mg, Route: IM, IM No Longer [facility] Drug form: Active 2012 Medical PDR/INJ, PRN, Center Dosing Weight 101.364, kg, PRN Blood Glucose Results, Start date: 11/29/12 3:26:00, Duration: 30 day, Stop date: 12/29/12 3:25:00 acetaminophen 650 mg, 20.3 mL, PO No Longer [facility] Route: PO, Drug Active 2012 Medical form: LIQ, Q4H, Center Dosing Weight 101.364, kg, PRN Pain 1-3/Temp > 100.4 F, Start date: 11/29/12 3:25:00, Duration: 30 day, Stop date: 12/29/12 3:24:00 docusate 100 mg, 1 cap, PO No Longer [facility] Route: PO, Drug Active 2012 Medical form: CAP, BID, Center Dosing Weight 101.364, kg, PRN Constipation, Start date: 11/29/12 3:25:00, Duration: 30 day, Stop date: 12/29/12 3:24:00 D5W 1/2NS 1,000 1,000 mL, Rate: IV No Longer [facility] mL 75 ml/hr, Infuse Active 2012 Medical over: 13.3 hr, Center Route: IV, kg, Total Volume: 1,000, Start date: 11/29/12 3:21:00, Duration: 30 day, Stop date: 12/29/12 3:20:00 NS 0.45% IV 1,000 mL, Rate: IV No Longer [facility] 1000 mL 125 ml/hr, Active 2012 Medical Infuse over: 8 Center hr, Route: IV, Dosing Weight 101.364 kg, Total Volume: 1,000, Start date: 11/29/12 3:18:00, Duration: 30 day, Stop date: 12/29/12 3:17:00 Reglan 10 mg, 2 mL, IVP No Longer [facility] Route: IVP, Drug Active 2012 Medical form: INJ, ONCE, Center Dosing Weight 101.364, kg, Priority: STAT, Start date: 11/29/12 2:31:00, Stop date: 11/29/12 2:31:00 Zofran 8 mg, Route: IVP No Longer [facility] IVP, Drug form: Active 2012 Medical INJ, ONCE, Center Dosing Weight 101.364, kg, Priority: STAT, Start date: 11/29/12 1:52:00, Stop date: 11/29/12 1:52:00 Lortab 500 5 ml, PO, Q6H, PO No Longer [facility] mg-7.5 mg/15 mL PRN, 120 mL, for Active 2012 Medical oral elixir pain, Center Substitution Allowed, Maintenance, ELIX Phenergan 25 mg 1 supp, AR, Q6H, AR Active [facility] rectal PRN, 9 supp, 2012 Medical suppository Nausea & Center Vomiting, Substitution Allowed Phenergan 12.5 mg, 0.5 mL, IVPB No Longer [facility] Route: IVPB, Active 2012 Medical Drug form: INJ, Center ONCE, Dosing Weight 101.364, kg, Priority: STAT, Start date: 11/29/12 0:56:00, Stop date: 11/29/12 0:56:00 Zofran 4 mg, 2 mL, IVP No Longer [place] 11/29[facility] Route: IVP, Drug Active 2012 Medical [...] mg, 2 mL, IVP No Longer [place] 11/29[facility] Route: IVP, Drug Active 2012 Medical [...] No Longer [facility] 0.9% IVP, Drug Form: Active 2012 Medical INJ, Dosing Center Weight 101.364, kg, PRN, PRN Line Flush, Start date: 11/28/12 19:29:00, Duration: 30 day, Stop date: 12/28/12 19:28:00 calcium 2,000 mg, 20 mL, IVPB No Longer [facility] gluconate + Route: IVPB, Active 2012 Medical Sodium Chloride ONCE, Dosing Center 0.9% IV 80 mL Weight 103.21, kg, Start date: 11/17/12 11:02:00, Stop date: 11/17/12 11:02:00 magnesium 2 gm, 50 mL, IVPB No Longer [facility] sulfate Route: IVPB, Active 2012 Medical Drug form: INJ, Center Q2H, Dosing Weight 103.21, kg, Total dose=4 gm, Start date: 11/17/12 10:00:00, Duration: 2 doses or times, Stop date: 11/17/12 12:00:00 aspirin 81 mg, 1 tab, PO No Longer [facility] Route: PO, Drug Active 2012 Medical form: ECTAB, Center Daily, Dosing Weight 100, kg, Start date: 11/17/12 9:00:00, Duration: 30 day, Stop date: 12/16/12 9:00:00 simvastatin 40 mg, 1 tab, PO No Longer [facility] Route: PO, Drug Active 2012 Medical form: TAB, Center Daily, Dosing Weight 100, kg, Start date: 11/17/12 9:00:00, Duration: 30 day, Stop date: 12/16/12 9:00:00 prasugrel 10 mg, 1 tab, PO No Longer [facility] Route: PO, Drug Active 2012 Medical form: TAB, Center Daily, Dosing Weight 100, kg, Start date: 11/17/12 9:00:00, Duration: 30 day, Stop date: 12/16/12 9:00:00 NIFEdipine 90 mg, 1 tab, PO No Longer [facility] Route: PO, Drug Active 2012 Medical form: ERTAB, Center Daily, Dosing Weight 100, kg, Start date: 11/17/12 9:00:00, Duration: 30 day, Stop date: 12/16/12 9:00:00 Toprol-XL 100 100 mg, 1 tab, PO No Longer [facility] mg oral tablet, Route: PO, Drug Active 2012 Medical extended form: ERTAB, Center release Daily, Start date: 11/17/12 9:00:00, Duration: 30 day, Stop date: 12/16/12 9:00:00 magnesium oxide 400 mg, 1 tab, PO No Longer [facility] Route: PO, Drug Active 2012 Medical form: TAB, Center Daily, Dosing Weight 100, kg, Start date: 11/17/12 9:00:00, Duration: 30 day, Stop date: 12/16/12 9:00:00 insulin detemir 15 unit, 0.15 SUB-Q No Longer [place] [facility] mL, Route: Active 2012 Medical SUB-Q, Drug Center form: INJ, Daily, Dosing Weight 100, kg, Start date: 11/17/12 9:00:00, Duration: 30 day, Stop date: 12/16/12 9:00:00 Zofran 8 mg, 4 mL, IV No Longer [facility] Route: IV, Drug Active 2012 Medical form: INJ, Q4H, Center Dosing Weight 103.21, kg, PRN as needed for nausea/vomiting, Start date: 11/17/12 8:56:00, Duration: 30 day, Stop date: 12/17/12 8:55:00 Reglan 10 mg 10 mg, 1 tab, PO No Longer [facility] oral tablet Route: PO, Drug Active 2012 Medical form: TAB, Center TID-Before Meals, Dosing Weight 100, kg, Start date: 11/17/12 7:30:00, Duration: 30 day, Stop date: 12/16/12 16:30:00 insulin aspart 4 unit, 0.04 mL, SUB-Q No Longer [facility] Route: SUB-Q, Active 2012 Medical Drug form: SOLN, Center TID-Before Meals, Dosing Weight 100, kg, Start date: 11/17/12 7:30:00, Duration: 30 day, Stop date: 12/16/12 16:30:00 Cymbalta 120 mg, 2 cap, PO No Longer [facility] Route: PO, Drug Active 2012 Medical form: DRC, Center Bedtime, Dosing Weight 100, kg, Start date: 11/16/12 21:00:00, Duration: 30 day, Stop date: 12/15/12 21:00:00 lisinopril 20 mg, 1 tab, PO No Longer [facility] Route: PO, Drug Active 2012 Medical form: TAB, Q12H, Center Dosing Weight 100, kg, Start date: 11/16/12 21:00:00, Duration: 30 day, Stop date: 12/16/12 9:00:00 insulin detemir 12 unit, 0.12 SUB-Q No Longer [facility] mL, Route: Active 2012 Medical SUB-Q, Drug Center form: INJ, Bedtime, Dosing Weight 100, kg, Start date: 11/16/12 21:00:00, Duration: 30 day, Stop date: 12/15/12 21:00:00 clonazepam 0.5 mg, 1 tab, PO No Longer [facility] Route: PO, Drug Active 2012 Medical form: TAB, TID, Center Dosing Weight 100, kg, Start date: 11/16/12 20:30:00, Duration: 30 day, Stop date: 12/16/12 17:00:00 Neutra-Phos 1 pkt, Route: PO No Longer [facility] PO, Drug Form: Active 2012 Medical PDR/REC, Dosing Center Weight 100, kg, TID-Before Meals, Start date: 11/16/12 20:30:00, Duration: 30 day, Stop date: 12/16/12 16:30:00 enoxaparin 40 mg, 0.4 mL, SUB-Q No Longer [facility] Route: SUB-Q, Active 2012 Medical Drug form: INJ, Center [id number], Dosing Weight 100, kg, Start date: 11/16/12 19:00:00, Duration: 30 day, Stop date: 12/15/12 19:00:00 Sodium Chloride 1,000 mL, Rate: IV No Longer [place] 0.9% IV 1,000 125 ml/hr, Active 2012 Medical mL Infuse over: 8 Center hr, Route: IV, kg, Total Volume: 1,000, Start date: 11/16/12 18:10:00, Duration: 30 day, Stop date: 12/16/12 18:09:00 insulin aspart 10 unit, 0.1 mL, SUB-Q No Longer [facility] Route: SUB-Q, Active 2012 Medical Drug form: SOLN, Center TID-Before Meals, Dosing Weight 100, kg, PRN Blood Glucose Results, Start date: 11/16/12 18:10:00, Duration: 30 day, Stop date: 12/16/12 18:09:00 Dextrose 50% 12.5 gm, 25 mL, IVP No Longer [facility] Syringe Route: IVP, Drug Active 2012 Medical Form: INJ, Center Dosing Weight 100, kg, PRN, PRN Blood Glucose Results, Start date: 11/16/12 18:10:00, Duration: 30 day, Stop date: 12/16/12 18:09:00 glucagon 1 mg, Route: IM, IM No Longer [facility] Drug form: Active 2012 Medical PDR/INJ, PRN, Center Dosing Weight 100, kg, PRN Blood Glucose Results, Start date: 11/16/12 18:10:00, Duration: 30 day, Stop date: 12/16/12 18:09:00 [place] 5/325 1 tab, Route: PO No Longer [place] oral tablet PO, Drug Form: Active 2012 Medical TAB, Dosing Center Weight 100, kg, Q6H, PRN as needed for pain, Start date: 11/16/12 18:07:00, Duration: 30 day, Stop date: 12/16/12 18:06:00 tramadol 50 mg 50 mg, 1 tab, PO No Longer [facility] [place] oral tablet Route: PO, Drug Active 2012 Medical form: TAB, Q4H, Center Dosing Weight 100, kg, PRN as needed for pain, Start date: 11/16/12 18:01:00, Duration: 30 day, Stop date: 12/16/12 18:00:00 promethazine 25 mg, 1 tab, PO No Longer [facility] Route: PO, Drug Active 2012 Medical form: TAB, Q4H, Center Dosing Weight 100, kg, PRN as needed for nausea/vomiting, Start date: 11/16/12 18:01:00, Duration: 30 day, Stop date: 12/16/12 18:00:00 ondansetron 8 mg, 2 tab, PO No Longer [place] [facility] Route: PO, Drug Active 2012 Medical form: TABDIS, Center Q8H, Dosing Weight 100, kg, PRN Nausea & Vomiting, Start date: 11/16/12 18:01:00, Stop date: 12/16/12 18:00:00, nauea ondansetron 8 8 mg, 1 tab, PO, PO Active [place] mg oral tablet, Q8H, PRN, 2012 Medical disintegrating Dissolve under Center tongue, 10 tab, as needed for nausea/vomiting, Substitution AllowedDissolve under tongue Effient 10 mg 10 mg, 1 tab, PO Active [place] oral tablet PO, Daily, 30 2012 Medical tab, Center Substitution Allowed, TAB tramadol 50 mg 50 mg, 1 tab, PO Active [place] oral tablet PO, Q4H, PRN, 60 2012 Medical tab, for pain, Center Substitution Allowed, TAB clonazepam 0.5 0.5 mg, 1 tab, PO Active [place] mg oral tablet PO, TID, 2012 [...] Duration: 1 doses or times, Dose=2.2ml/kg, Max [id number] -- "To be infused by Radiology Staff ONLY"Dose=2.2ml/ kg, Max [id number] -- "To be infused by Radiology Staff [...] 1 mg, 0.5 mL, IVP No Longer [place] [facility] Route: IVP, Drug Active 2012 Medical [...] mg, 1 tab, SL No Longer [facility] 0.4 mg Route: SL, Drug Active 2012 Medical sublingual form: TAB, ONCE, Center tablet Dosing Weight 100, kg, Start date: 11/16/12 13:30:00, Stop date: 11/16/12 13:30:00 aspirin 324 mg, 4 tab, CHEW No Longer [facility] Route: CHEW, Active 2012 Medical Drug form: Center CHEWTAB, ONCE, Dosing Weight 100, kg, Priority: STAT, Start date: 11/16/12 13:29:00, Stop date: 11/16/12 13:29:00 Zofran 8 mg, 4 mL, IVP No Longer [facility] Route: IVP, Drug Active 2012 Medical form: INJ, ONCE, Center Dosing Weight 100, kg, Priority: STAT, Start date: 11/16/12 13:17:00, Stop date: 11/16/12 13:17:00 Saline Flush 5 mL, Route: IVP No Longer [facility] 0.9% IVP, Drug Form: Active 2012 Medical INJ, Dosing Center Weight 100, kg, Q8H, PRN Line Flush, Start date: 11/16/12 13:16:00, Duration: 30 day, Stop date: 12/16/12 13:15:00, Administer at least once every 8 hoursAdminister at least once every 8 hours Reglan 10 mg 10 mg, 1 tab, PO Active [facility] oral tablet PO, TID-Before 2012 Medical Meals, PRN, 42 Center tab, nausea, Substitution Allowed, TAB [place] 5/325 1 tab, PO, Q6H, PO Active [facility] oral tablet PRN, 10 tab, 2013 Medical Pain, Center Substitution Allowed, Maintenance, TAB ondansetron 8 8 mg, 1 tab, PO, PO Active [facility] 11/14[facility] [place] mg oral tablet, Q8H, PRN, 60 2012 Medical disintegrating tab, 1, 1, Center Nausea, Substitution Allowed, TABDIS insulin detemir 12 unit, 0.12 SUB-Q Active [facility] 100 units/mL mL, SUB-Q, 2012 Medical subcutaneous Bedtime, 4 mL, Center solution Substitution Allowed, INJ insulin detemir 15 unit, 0.15 SUB-Q Active [facility] [place] 100 units/mL mL, SUB-Q, 2012 Medical subcutaneous Daily, 5 mL, Center solution Substitution Allowed, INJ Zofran 4 mg, 1 tab, PO No Longer [facility] [place] Route: PO, Drug Active 2012 Medical form: TAB, Q8H, Center Dosing Weight 100, kg, Start date: 11/14/12 16:00:00, Duration: 30 day, Stop date: 12/14/12 8:00:00 Reglan 10 mg 10 mg, 1 tab, PO No Longer [facility] oral tablet Route: PO, Drug Active 2012 Medical form: TAB, Center TID-Before Meals, Dosing Weight 100, kg, Start date: 11/14/12 11:30:00, Duration: 30 day, Stop date: 12/14/12 7:30:00 calcium 2,000 mg, 20 mL, IVPB No Longer [facility] gluconate + Route: IVPB, Active 2012 Medical Sodium Chloride Drug form: INJ, Center 0.9% IV 100 mL Q2H, Dosing Weight 100, kg, Total [id number] mg, Start date: 11/14/12 8:00:00, Duration: 2 doses or times, Stop date: 11/14/12 10:00:00 magnesium 2 gm, 50 mL, IVPB No Longer [facility] sulfate Route: IVPB, Active 2012 Medical [...] mEq, 100 mL, IVPB No Longer [facility] chloride Route: IVPB, Active 2012 Medical Drug form: INJ, Center ONCE, Dosing Weight 100, kg, Total dose=20mEq, Start date: 11/13/12 7:58:00, Duration: 1 doses or times, Stop date: 11/13/12 7:58:00, For K=3.5 - 3.9 mEq/LFor K=3.5 - 3.9 mEq/L calcium 1,000 mg, 10 mL, IVPB No Longer [facility] gluconate + Route: IVPB, Active 2012 Medical Sodium Chloride ONCE, Dosing Center 0.9% IV 50 mL Weight 100, kg, Start date: 11/13/12 7:56:00, Stop date: 11/13/12 7:56:00 Reglan 10 mg, 2 mL, IVP No Longer [facility] Route: IVP, Drug Active 2012 Medical form: INJ, Center Before Meals & Bedtime, Dosing Weight 100, kg, Start date: 11/12/12 16:30:00, Duration: 30 day, Stop date: 12/12/12 11:30:00 [place] 5/325 1 tab, Route: PO No Longer [facility] [place] oral tablet PO, Drug Form: Active jaida 2012 Medical TAB, Dosing Center Weight 100, kg, Q6H, PRN Pain, Start date: 11/12/12 16:07:00, Duration: 30 day, Stop date: 12/12/12 16:06:00 Reglan 10 mg, Route: IVP No Longer [facility] IVP, Q6H, Dosing Active 2012 Medical Weight 100, kg, Center PRN Nausea & Vomiting, Start date: 11/12/12 12:35:00, Duration: 30 day, Stop date: 12/12/12 12:34:00 insulin detemir 15 unit, Route: SUB-Q No Longer [place] [facility] SUB-Q, ONCE, Active 2012 [facility] D[facility] 100, kg, Priority: NOW, Start date: 11/12/12 10:38:00, Stop date: 11/12/12 10:38:00 heparin 7,500 unit, 1.5 SUB-Q No Longer Cardoza 11/12[facility] mL, Route: Active 2012 Medical SUB-Q, Drug Center form: INJ, Q8H, Start date: 11/11/12 18:00:00, Duration: 30 day, Stop date: 12/11/12 16:00:00 Levemir FlexPen 15 unit, 0.15 SUB-Q No Longer Ada 11/11[facility] mL, Route: Active 2012 Medical SUB-Q, Drug Center form: INJ, Daily, Dosing Weight 100, kg, Start date: 11/11/12 10:00:00, Stop date: 12/11/12 9:00:00 magnesium 2 gm, 50 mL, IVPB No Longer [facility] sulfate Route: IVPB, Active 2012 Medical Drug form: INJ, Center ONCE, Dosing Weight 100, kg, Total dose=2 gm, Start date: 11/11/12 9:04:00, Duration: 1 doses or times, Stop date: 11/11/12 9:04:00 insulin detemir 20 unit, 0.2 mL, SUB-Q No Longer Ada 11/11[facility] Route: SUB-Q, Active 2012 Medical Drug form: INJ, Center Daily, Dosing Weight 100, kg, Start date: 11/11/12 9:00:00, Stop date: 12/10/12 9:00:00 Toradol 15 15 mg, 1 mL, IV No Longer [facility] 11/11[facility] mg/mL Route: IV, Drug Active 2012 Medical injectable form: INJ, ONCE, Center solution Dosing Weight 100, kg, Start date: 11/11/12 0:56:00, Stop date: 11/11/12 0:56:00 Zofran 4 mg, 2 mL, IV No Longer [facility] 11/11[facility] Route: IV, Drug Active 2012 Medical form: INJ, Q8H, Center Dosing Weight 100, kg, Start date: 11/11/12 0:00:00, Duration: 30 day, Stop date: 12/10/12 16:00:00 normal saline 1,000 mL, Rate: IV No Longer [facility] 0.9% IV 1,000 100 ml/hr, Active 2012 Medical mL Infuse over: 10 Center hr, Route: IV, kg, Total Volume: 1,000, Start date: 11/10/12 20:17:00, Duration: 30 day, Stop date: 12/10/12 20:16:00 Sodium Chloride 1,000 mL, Rate: IV No Longer [facility] [place] 0.9% (Bolus) IV 1,000 ml/hr, Active 2012 Medical 1,000 mL Infuse over: 1 Center hr, Route: IV, kg, Total Volume: 1,000, Priority: STAT, Start date: 11/10/12 20:17:00, Duration: 1 doses or times, Stop date: 11/10/12 21:16:00, Bolus DoseBolus Dose insulin detemir 10 unit, 0.1 mL, SUB-Q No Longer Ada [facility] Route: SUB-Q, Active 2012 Medical Drug form: INJ, Center ONCE, Dosing Weight 100, kg, Priority: NOW, Start date: 11/10/12 11:40:00, Stop date: 11/10/12 11:40:00 Zofran ODT 4 mg, 1 tab, PO No Longer Juanjo [place] Route: PO, Drug Active 2012 Medical form: TABDIS, Center Q8H, Dosing Weight 100, kg, PRN Nausea, Start date: 11/10/12 11:04:00, Duration: 30 day, Stop date: 12/10/12 11:03:00 Phenergan 12.5 mg, 0.5 mL, IM No Longer Ahmad [place] Route: IM, Drug Active 2012 Medical form: INJ, PRN, Center Dosing Weight 100, kg, PRN as needed for nausea/vomiting, Start date: 11/10/12 10:00:00, Duration: 30 day, Stop date: 12/10/12 10:59:00 insulin detemir 16 unit, 0.16 SUB-Q No Longer Maggin [facility] mL, Route: Active 2012 Medical SUB-Q, Drug Center form: INJ, ONCE, Dosing Weight 100, kg, Start date: 11/10/12 0:20:00, Stop date: 11/10/12 0:20:00 NovoLog 6 unit, 0.06 mL, SUB-Q No Longer Ada [facility] Route: SUB-Q, Active 2012 Medical Drug form: SOLN, Center TID-Before Meals, Dosing Weight 100, kg, Start date: 11/09/12 16:30:00, Duration: 30 day, Stop date: 12/09/12 11:30:00 insulin aspart 7 unit, 0.07 mL, SUB-Q No Longer Loida [facility] Route: SUB-Q, Active 2012 Medical Drug form: SOLN, Center ONCE, Dosing Weight 100, kg, Start date: 11/09/12 13:24:00, Stop date: 11/09/12 13:24:00 insulin detemir 20 unit, 0.2 mL, SUB-Q No Longer Juanjo [facility] Route: SUB-Q, Active 2012 Medical Drug form: INJ, Center Daily, Dosing Weight 100, kg, Start date: 11/09/12 9:00:00, Duration: 30 day, Stop date: 12/08/12 9:00:00 morphine 1 mg, 0.5 mL, IV No Longer Chavez [facility] Sulfate Route: IV, Drug Active 2012 Medical form: INJ, ONCE, Center Dosing Weight 100, kg, Start date: 11/09/12 5:28:00, Stop date: 11/09/12 5:28:00 insulin detemir 12 unit, 0.12 SUB-Q No Longer Olejarski [facility] mL, Route: Active 2012 Medical SUB-Q, Drug Center form: INJ, Bedtime, Dosing Weight 100, kg, Start date: 11/08/12 21:00:00, Stop date: 12/07/12 21:00:00 morphine 2 mg, 1 mL, IVP No Longer Quintanilla [facility] Sulfate Route: IVP, Drug Active 2012 Medical form: INJ, ONCE, Center Dosing Weight 100, kg, Start date: 11/08/12 18:34:00, Stop date: 11/08/12 18:34:00 ampicillin + 1,500 mg, Route: IVPB No Longer Aristides [facility] Sodium Chloride IVPB, Drug form: Active 2012 Medical 0.9% IV 100 mL PDR/INJ, ABXQ6H, Center Dosing Weight 100, kg, Start date: 11/08/12 18:00:00, Duration: 30 day, Stop date: 12/08/12 12:00:00 ciprofloxacin 500 mg, 1 tab, PO No Longer Maggin [facility] Route: PO, Drug Active 2012 Medical form: TAB, Center [id number], Dosing Weight 100, kg, Start date: 11/08/12 17:00:00, Duration: 30 day, Stop date: 12/08/12 5:00:00 Rocephin 1 gm, Route: IVPB No Longer Janet [facility] IVPB, Drug form: Active 2012 Medical PDR/INJ, ONCE, Center Dosing Weight 100, kg, Start date: 11/08/12 13:11:00, Stop date: 11/08/12 13:11:00 insulin aspart 2 unit, 0.02 mL, SUB-Q No Longer Domingojapowerki [facility] Route: SUB-Q, Active 2012 Medical Drug form: SOLN, Center TID-Before Meals, Dosing Weight 100, kg, PRN Blood Glucose Results, Start date: 11/08/12 10:45:00, Duration: 30 day, Stop date: 12/08/12 10:44:00 insulin aspart 2 unit, 0.02 mL, SUB-Q No Longer Olejapowerki [facility] Route: SUB-Q, Active 2012 Medical Drug form: SOLN, Center TID-Before Meals, Dosing Weight 100, kg, PRN Blood Glucose Results, Start date: 11/07/12 18:47:00, Duration: 30 day, Stop date: 12/07/12 18:46:00 magnesium 2 gm, 50 mL, IVPB No Longer Maggin [facility] sulfate Route: IVPB, Active 2012 Medical Drug form: INJ, Center Q2H, Dosing Weight 100, kg, Start date: 11/07/12 8:00:00, Duration: 2 doses or times, Stop date: 11/07/12 10:00:00, For Mg=1.5 - 1.7 mg/dLFor Mg=1.5 - 1.7 mg/dL magnesium 2 gm, Route: IVPB No Longer Loida [facility] sulfate IVPB, Drug form: Active 2012 Medical SOLN, ONCE, Center Dosing Weight 100, kg, Start date: 11/07/12 7:42:00, Duration: 1 doses or times, Stop date: 11/07/12 7:42:00, For Mg=1.8 - 2 mg/dLFor Mg=1.8 - 2 mg/dL Protonix 40 mg, Route: IVP No Longer Quintanilla [facility] IVP, Drug form: Active 2012 Medical INJ, Before Center Breakfast, Dosing Weight 100, kg, Start date: 11/07/12 7:30:00, Duration: 30 day, Stop date: 12/06/12 7:30:00 insulin aspart 10 unit, 0.1 mL, SUB-Q No Longer Ahmad [facility] Route: SUB-Q, 2012 Medical Drug form: [facility], [place] ONCE, Dosing Weight 100, kg, Start date: 11/06/12 13:32:00, Stop date: 11/06/12 13:32:00 adenosine 84 mg, Route: IVP No Longer Ahmad [facility] IVP, ONCE, Active 2012 Medical Dosing Weight Center 100, kg, Priority: Routine, Start date: 11/06/12 10:20:00, Stop date: 11/06/12 10:20:00 Insulin regular 10 unit, 0.1 mL, SUB-Q No Longer Maggin [facility] Route: SUB-Q, 2012 Medical Drug form: [facility], [place] ONCE, Dosing Weight 100, kg, Start date: 11/06/12 9:47:00, Stop date: 11/06/12 9:47:00 insulin aspart 10 unit, 0.1 mL, SUB-Q No Longer Maggin [facility] Route: SUB-Q, 2012 Medical Drug form: [facility], [place] ONCE, Dosing Weight 100, kg, Start date: 11/06/12 9:43:00, Stop date: 11/06/12 9:43:00 Lactated 1,000 mL, Rate: IV No Longer Maggin [facility] Ringers (Bolus) 1,000 ml/hr, Active 2012 Medical IV 1,000 mL Infuse over: 1 Center hr, Route: IV, kg, Total Volume: 1,000, Bolus Dose, Priority: STAT, Start date: 11/06/12 9:14:00, Duration: 1 doses or times, Stop date: 11/06/12 10:13:00 Insulin regular 9 unit, 0.09 mL, SUB-Q No Longer Viraki Fei Route: SUB-Q, Active 2012 Medical Drug [...] Drug Active 2012 Medical extended form: ERTAB, [place] release Daily, Start date: 11/06/12 9:00:00, Duration: [...] 4 unit, 0.04 mL, SUB-Q No Longer Ada Fei Route: SUB-Q, Active 2012 Medical Drug form: SOLN, Center TID-Before Meals, Dosing Weight 100, kg, Start date: 11/06/12 7:30:00, Duration: 30 day, Stop date: 12/05/12 16:30:00 metoclopramide 10 mg, 2 mL, IVP No Longer Aristides [facility] Route: IVP, Drug Active 2012 Medical form: INJ, Q6H, Center Dosing Weight 100, kg, PRN Nausea & Vomiting, Start date: 11/06/12 1:49:00, Duration: 30 day, Stop date: 12/06/12 1:48:00 Benadryl 25 mg, 0.5 mL, IV No Longer Blair [facility] Route: IV, Drug Active 2012 Medical form: INJ, Q4H, Center Dosing Weight 100, kg, PRN as needed for nausea/vomiting, Start date: 11/06/12 1:44:00, Duration: 30 day, Stop date: 12/06/12 1:43:00 Phenergan 12.5 mg, 0.5 mL, IVPB No Longer Blair [facility] Route: IVPB, Active 2012 Medical Drug form: INJ, Center Q6H, Dosing Weight 100, kg, PRN Nausea & Vomiting, Start date: 11/06/12 1:43:00, Stop date: 12/06/12 1:42:00 Benadryl 25 mg, 1 cap, PO No Longer Gee [facility] Route: PO, Drug Active 2012 Medical form: CAP, TID, Center Dosing Weight 100, kg, PRN Nausea, Start date: 11/06/12 0:31:00, Duration: 30 day, Stop date: 12/06/12 0:30:00 labetalol 20 mg, 4 mL, IVP No Longer Maggin [facility] Route: IVP, Drug Active 2012 Medical form: INJ, ONCE, Center Dosing Weight 100, kg, Start date: 11/06/12 0:25:00, Stop date: 11/06/12 0:25:00 simvastatin 40 mg, 1 tab, PO No Longer Maggin [facility] Route: PO, Drug Active 2012 Medical form: TAB, Center Bedtime, Dosing Weight 100, kg, Start date: 11/05/12 23:00:00, Duration: 30 day, Stop date: 12/05/12 21:00:00 lisinopril 20 mg, 1 tab, PO No Longer Maggin [facility] Route: PO, Drug Active 2012 Medical form: TAB, Q12H, Center Dosing Weight 100, kg, Start date: 11/05/12 23:00:00, Duration: 30 day, Stop date: 12/05/12 21:00:00 insulin detemir 20 unit, 0.2 mL, SUB-Q No Longer Olejarski [facility] Route: SUB-Q, Active 2012 Medical Drug form: INJ, Center Q12H, Dosing Weight 100, kg, Start date: 11/05/12 23:00:00, Stop date: 12/05/12 21:00:00 magnesium oxide 400 mg, 1 tab, PO Active [place] 400 mg oral PO, Daily, 2012 Medical tablet tab, Center Substitution Allowed, TAB metoprolol 100 100 mg, 1 tab, PO Active [facility] mg oral tablet, PO, Daily, 30 2012 Medical extended tab, Center release Substitution Allowed NIFEdipine 90 90 mg, 1 tab, PO Active [facility] mg oral tablet, PO, Daily, 30 2012 Medical extended tab, Center release Substitution Allowed, ERTAB prasugrel 10 mg 10 mg, 1 tab, PO Active [facility] oral tablet PO, Daily, 30 2012 Medical tab, Center Substitution Allowed, TAB Cymbalta 60 mg, Daily, Active [facility] Substitution 2012 Medical Allowed Center tramadol 50 mg 50 mg, 1 tab, PO No Longer Maggin [facility] oral tablet Route: PO, Drug Active 2012 Medical form: TAB, Q4H, Center Dosing Weight 100, kg, PRN For Pain, Start date: 11/05/12 22:39:00, Duration: 30 day, Stop date: 12/05/12 22:38:00 promethazine 25 mg, 1 tab, PO No Longer Gee [facility] Route: PO, Drug Active 2012 Medical [...] mg, 4 mL, IV No Longer Juanjo [place] Route: IV, Drug Active 2012 Medical form: INJ, Q8H, Center Dosing Weight 104.545, kg, PRN Nausea, Start date: 11/05/12 22:32:00, Duration: 30 day, Stop date: 12/05/12 22:31:00 Saline Flush 5 ml, Route: IVP No Longer Maggin [facility] 0.9% IVP, Drug Form: Active 2012 Medical INJ, Dosing Center Weight 104.545, kg, PRN, PRN Line Flush, Start date: 11/05/12 22:14:00, Duration: 30 day, Stop date: 12/05/12 23:13:00 Sodium Chloride 500 mL, Rate: IV No Longer Maggin [place] 0.9% (Bolus) IV 2,000 ml/hr, Active 2012 Medical 500 mL Infuse over: 15 Center minutes, Route: IV, kg, Total Volume: 500, Priority: STAT, Start date: 11/05/12 22:14:00, Duration: 1 doses or times, Stop date: 11/05/12 22:28:00 nitroglycerin 0.4 mg, 1 tab, SL No Longer Maggin [facility] SL Tab Route: SL, Drug Active 2012 Medical form: TAB, Center Q5Min, Dosing Weight 104.545, kg, PRN Chest Pain, Start date: 11/05/12 22:14:00, Duration: 3 doses or times, Stop date: Limited # of times Phenergan 12.5 mg, Route: IVPB No Longer Dilan [facility] IVPB, ONCE, Active 2012 Medical Dosing Weight Center 104.545, kg, Priority: STAT, Start date: 11/05/12 22:05:00, Stop date: 11/05/12 22:05:00 Phenergan 12.5 mg, 0.5 mL, IVPB No Longer Dilan [facility] Route: IVPB, Active 2012 Medical Drug form: INJ, Center ONCE, Dosing Weight 104.545, kg, Priority: STAT, Start date: 11/05/12 21:08:00, Stop date: 11/05/12 21:08:00 carvedilol 12.5 mg, 1 tab, PO No Longer Dilan [facility] Route: PO, Drug Active 2012 Medical form: TAB, ONCE, Center Dosing Weight 104.545, kg, Start date: 11/05/12 19:20:00, Stop date: 11/05/12 19:20:00 Effient 10 mg, 1 tab, PO No Longer Dilan [facility] Route: PO, Drug Active 2012 Medical form: TAB, ONCE, Center Dosing Weight 104.545, kg, Start date: 11/05/12 19:16:00, Stop date: 11/05/12 19:16:00 ondansetron 4 mg, 2 mL, IVP No Longer Dilan [facility] Route: IVP, Drug Active 2012 Medical form: INJ, ONCE, Center Dosing Weight 104.545, kg, Priority: STAT, Start date: 11/05/12 19:14:00, Stop date: 11/05/12 19:14:00 aspirin 324 mg, 4 tab, PO No Longer Dilan [facility] Route: PO, Drug Active 2012 Medical form: CHEWTAB, Center ONCE, Dosing Weight 104.545, kg, Priority: STAT, Start date: 11/05/12 19:14:00, Stop date: 11/05/12 19:14:00 Saline Flush 5 mL, Route: IVP No Longer Dilan [facility] 0.9% IVP, Drug Form: Active 2012 [...] 16 unit, 0.16 SUB-Q No Longer Fitzpatrick [place] mL, Route: Active 2012 Medical SUB-Q, Drug Center form: INJ, Q12H, Dosing Weight 78.2, kg, Start date: 10/31/12 21:00:00, Duration: 30 day, Stop date: 11/30/12 9:00:00 insulin aspart 4 unit, 0.04 mL, SUB-Q Active [place] 100 units/mL SUB-Q, 2012 Medical subcutaneous TID-Before Center solution Meals, 1 vial, 2, 2, Substitution Allowed, SOLN insulin detemir 16 unit, 0.16 SUB-Q Active [place] 100 units/mL mL, SUB-Q, Q12H, 2012 Medical subcutaneous 1 vial, 2, 2, Center solution Substitution Allowed, INJ tramadol 50 mg 50 mg, 1 tab, PO Active Gee [place] oral tablet PO, Q4H, PRN, 30 2012 Medical tab, as needed Center for pain, Substitution Allowed, TAB simvastatin 40 40 mg, 1 tab, PO Active Blair 10/31/ [place] mg oral tablet PO, Bedtime, 30 2012 Medical tab, 1, 1, Center Substitution Allowed, Maintenance, TAB promethazine 25 25 mg, 1 tab, PO Active Blair [place] mg oral tablet PO, Q6H, PRN, 60 2012 Medical tab, 1, 1, Center Nausea & Vomiting, Substitution Allowed, TAB prasugrel 10 mg 10 mg, 1 tab, PO Active Blair [place] oral tablet PO, Daily, 30 2012 Medical tab, 1, 1, Center Substitution Allowed, TAB ondansetron 8 8 mg, 1 tab, PO, PO Active Blair 10/31/ [place] mg oral tablet, Q8H, PRN, 60 2012 Medical disintegrating tab, 1, 1, Center Nausea, Substitution Allowed, TABDIS NIFEdipine 90 90 mg, 1 tab, PO Active Blair 10/31/ [place] mg oral tablet, PO, Daily, 30 2012 Medical extended tab, 1, 1, Center release Substitution Allowed, ERTAB Toprol-XL 100 100 mg, 1 tab, PO Active Blair 10/31/ [place] mg oral tablet, PO, Daily, 30 2012 Medical extended tab, 1, 1, Center release Substitution Allowed, ERTAB magnesium oxide 400 mg, 1 tab, PO Active Blair [place] 400 mg oral PO, Daily, 30 2012 Medical tablet tab, 1, 1, Center Substitution Allowed, TAB lisinopril 20 20 mg, 1 tab, PO Active Blair [place] mg oral tablet PO, Q12H, 60 2012 Medical tab, 1, 1, Center Substitution Allowed, TAB aspirin 81 mg 81 mg, 1 tab, PO Active Blair [facility] tablet, enteric PO, Daily, 30 2012 Medical coated tab, 1, 1, Center Substitution Allowed, ECTAB insulin aspart 6 unit, 0.06 mL, SUB-Q No Longer Manlapaz [place] Route: SUB-Q, Active 2012 Medical Drug form: SOLN, Center TID-Before Meals, Dosing Weight 78.2, kg, PRN Blood Glucose Results, Start date: 10/31/12 8:40:00, Duration: 30 day, Stop date: 11/30/12 8:39:00 Phenergan 25 mg, 1 tab, PO No Longer Steward [place] Route: PO, Drug Active 2012 Medical form: [...] 50 mg, 1 tab, PO No Longer Blair Fei oral tablet Route: PO, Drug Active 2012 Medical form: TAB, Q4H, Center Dosing Weight 78.2, kg, PRN as needed for pain, Start date: 10/29/12 9:45:00, Duration: 30 day, Stop date: 11/28/12 9:44:00 Toradol 15 15 mg, 0.5 mL, IV No Longer Blair [facility] mg/mL Route: IV, Drug Active 2012 Medical injectable form: INJ, ONCE, Center solution Dosing Weight 78.2, kg, Start date: 10/29/12 6:54:00, Stop date: 10/29/12 6:54:00 Toradol 15 15 mg, 0.5 mL, IV No Longer Blair Fei mg/mL Route: IV, Drug Active 2012 Medical injectable form: INJ, ONCE, Center solution Dosing Weight 78.2, kg, Start date: 10/29/12 1:07:00, Stop date: 10/29/12 1:07:00 insulin detemir 20 unit, 0.2 mL, SUB-Q No Longer Amari Fei Route: SUB-Q, Active 2012 Medical Drug form: INJ, Center QPM, Dosing Weight 78.2, kg, Start date: 10/28/12 21:00:00, Duration: 30 day, Stop date: 11/27/12 17:00:00 Lasix 20 mg, 2 mL, IV No Longer Dee Dee Jerseynigel Fei Route: IV, Drug Active 2012 Medical [...] labetalol 20 mg, Route: IVP No Longer Mansura [facility] IVP, Drug form: Active 2012 Medical INJ, ONCE, Center Dosing Weight 78.2, kg, Start date: 10/27/12 19:28:00, Stop date: 10/27/12 19:28:00 labetalol 20 mg, 4 mL, IVP No Longer Mansura [facility] Route: IVP, Drug Active 2012 Medical form: INJ, ONCE, Center Dosing Weight 78.2, kg, Start date: 10/27/12 17:28:00, Stop date: 10/27/12 17:28:00 Benadryl 25 mg, 1 cap, PO No Longer Mansura [facility] Route: PO, Drug Active 2012 Medical form: CAP, ONCE, Center Dosing Weight 78.2, kg, Start date: 10/27/12 17:28:00, Stop date: 10/27/12 17:28:00 Reglan 10 mg 10 mg, Route: PO No Longer Mansura [facility] oral tablet PO, Drug form: Active 2012 Medical TAB, Before Center Meals & Bedtime, Dosing Weight 78.2, kg, Start date: 10/27/12 16:30:00, Duration: 30 day, Stop date: 11/26/12 11:30:00 Reglan 5 mg, 1 mL, IV No Longer Blair [facility] Route: IV, Drug Active 2012 Medical form: INJ, Q8H, Center Dosing Weight 78.2, kg, Start date: 10/27/12 16:00:00, Duration: 30 day, Stop date: 11/26/12 8:00:00 Reglan 5 mg, 1 mL, IV No Longer Blair [facility] Route: IV, Drug Active 2012 Medical form: INJ, Q8H, Center Dosing Weight 78.2, kg, PRN Nausea, Start date: 10/27/12 13:08:00, Duration: 30 day, Stop date: 11/26/12 13:07:00 lisinopril 20 mg, 1 tab, PO No Longer Blair [facility] Route: PO, Drug Active 2012 Medical form: TAB, Q12H, Center Dosing Weight 78.2, kg, Start date: 10/27/12 10:00:00, Duration: 30 day, Stop date: 11/26/12 9:00:00 ergocalciferol 50,000 IntlUnit, PO No Longer Manlapaz [facility] 1 cap, Route: Active 2012 Medical PO, Drug form: Center CAP, Daily, Dosing Weight 78.2, kg, Start date: 10/27/12 9:00:00, Duration: 4 day, Stop date: 10/30/12 9:00:00 magnesium oxide 400 mg, 1 tab, PO No Longer Blair [facility] Route: PO, Drug Active 2012 Medical form: TAB, Center Daily, Dosing Weight 78.2, kg, Start date: 10/27/12 9:00:00, Duration: 30 day, Stop date: 11/25/12 9:00:00 Toprol-XL 100 100 mg, 1 tab, PO No Longer Hendricks [facility] mg oral tablet, Route: PO, Drug Active 2012 Medical extended form: ERTAB, [place] release Daily, Start date: 10/27/12 9:00:00, Duration: 30 day, Stop date: 11/25/12 9:00:00 insulin aspart 7 unit, Route: SUB-Q No Longer Manlapaz [facility] SUB-Q, Drug Active 2012 Medical form: SOLN, [place] TID-Before Meals, Dosing Weight 78.2, kg, Start date: 10/26/12 12:00:00, Duration: 30 day, Stop date: 11/25/12 11:30:00 Insulin regular 10 unit, 0.1 mL, SUB-Q No Longer Steward [facility] Route: SUB-Q, Active 2012 Medical Drug form: SOLN, [place] ONCE, Dosing Weight 78.2, kg, Start date: 10/26/12 10:32:00, Stop date: 10/26/12 10:32:00 NIFEdipine 90 mg, 1 tab, PO No Longer Dalton [facility] extended Route: PO, Drug Active 2012 Medical release form: ERTAB, [place] Daily, Dosing Weight 78.2, kg, Start date: 10/26/12 9:00:00, Duration: 30 day, Stop date: 11/24/12 9:00:00 metoprolol 25 mg, 1 tab, PO No Longer Hendricks [facility] tartrate Route: PO, Drug Active 2012 Medical form: TAB, Q12H, Center Dosing Weight 78.2, kg, Start date: 10/26/12 9:00:00, Duration: 30 day, Stop date: 11/24/12 21:00:00 Reglan 10 mg, 1 tab, PO No Longer Hendricks Fei Route: PO, Drug Active 2012 Medical [...] gm, 50 mL, IVPB No Longer Dalton [facility] sulfate Route: IVPB, Active 2012 Medical [...] mL 1,000 mL, Rate: IV No Longer Blair [facility] 100 ml/hr, Active 2012 Medical Infuse over: 10 Center hr, Route: IV, kg, Total Volume: 1,000, Start date: 10/25/12 13:52:00, Duration: 30 day, Stop date: 11/24/12 13:51:00 atenolol 100 mg, 1 tab, PO No Longer Hendricks [facility] Route: PO, Drug Active 2012 Medical form: TAB, Center Daily, Dosing Weight 78.2, kg, Start date: 10/25/12 9:00:00, Duration: 30 day, Stop date: 11/23/12 9:00:00 Protonix 40 mg, Route: IVP No Longer Carpenter [facility] IVP, Drug form: Active 2012 Medical INJ, Daily, Center Dosing Weight 78.2, kg, Start date: 10/25/12 9:00:00, Duration: 30 day, Stop date: 11/23/12 9:00:00 NovoLog FlexPen 6 unit, 0.06 mL, SUB-Q No Longer Fitzpatrick [facility] Route: SUB-Q, Active 2012 Medical Drug form: SOLN, Center TID-Before Meals, Start date: 10/25/12 7:30:00, Duration: 30 day, Stop date: 11/23/12 16:30:00 insulin lispro 6 unit, Route: SUB-Q No Longer Dee Dee [facility] SUB-Q, Active 2012 Medical TID-Before Center Meals, Dosing Weight 78.2, kg, Start date: 10/25/12 7:30:00, Duration: 30 day, Stop date: 11/23/12 16:30:00 Lactated 1,000 mL, Rate: IV No Longer Dee Dee [facility] Ringers IV 250 ml/hr, Active 2012 Medical 1,000 mL Infuse over: 4 Center hr, Route: IV, kg, Total Volume: 1,000, Start date: 10/25/12 5:50:00, Duration: 30 day, Stop date: 11/24/12 5:49:00 Lactated 1,000 mL, Rate: IV No Longer Dee Dee [facility] Medicinen[facility]el [facility] Ringers (Bolus) 100 ml/hr, Active 2012 Medical IV 1,000 mL Infuse over: 10 Center hr, Route: IV, kg, Total Volume: 1,000, Start date: 10/25/12 5:50:00, Duration: 1 doses or times, Stop date: 10/25/12 15:49:00 insulin aspart 9 unit, 0.09 mL, SUB-Q No Longer Manlapaz [facility] Route: SUB-Q, Active 2012 Medical Drug form: SOLN, Center TID-Before Meals, Dosing Weight 78.2, kg, PRN Blood Glucose Results, Start date: 10/25/12 3:53:00, Duration: 30 day, Stop date: 11/24/12 3:52:00 glucagon 1 mg, Route: IM, IM No Longer Dee Dee [facility] Medicinen[facility]el [facility] Drug form: Active 2012 Medical PDR/INJ, PRN, Center Dosing Weight 78.2, kg, PRN Blood Glucose Results, Start date: 10/25/12 3:53:00, Duration: 30 day, Stop date: 11/24/12 4:52:00 Dextrose 50% 12.5 gm, 25 mL, IVP No Longer Funez [facility] 10/25[facility] Syringe Route: IVP, Drug Active 2012 Medical Form: INJ, Center Dosing Weight 78.2, kg, PRN, PRN Blood Glucose Results, Start date: 10/25/12 3:53:00, Duration: 30 day, Stop date: 11/24/12 4:52:00 Dextrose 50% 25 mL, Route: IVP No Longer Dee Dee [facility] 10/25[facility] Syringe IVP, Dosing Active 2012 Medical Weight 78.2, kg, Center PRN, PRN Blood Glucose Results, Start date: 10/25/12 3:52:00, Duration: 30 day, Stop date: 11/24/12 4:51:00 glucagon 1 mg, Route: IM, IM No Longer Funez [facility] 10/25[facility] [facility] PRN, Dosing Active 2012 Medical Weight 78.2, kg, Center PRN Blood Glucose Results, Start date: 10/25/12 3:52:00, Duration: 30 day, Stop date: 11/24/12 4:51:00 Neutra-Phos 2 pkt, Route: PO No Longer Neeru [facility] PO, Drug Form: Active 2012 Medical PDR/REC, Dosing Center Weight 78.2, kg, ONCE, Start date: 10/25/12 1:07:00, Stop date: 10/25/12 1:07:00 insulin detemir 25 unit, 0.25 SUB-Q No Longer Manlapaz [facility] mL, Route: Active 2012 Medical SUB-Q, Drug Center form: INJ, Q12H, Dosing Weight 78.2, kg, Priority: NOW, Start date: 10/25/12 1:06:00, Stop date: 11/23/12 21:00:00 heparin 5000 5,000 unit, 1 SUB-Q No Longer Neeru [facility] units/mL mL, Route: Active 2012 Medical injectable SUB-Q, Drug Center solution form: INJ, Q8H, Dosing Weight 78.2, kg, Start date: 10/25/12 0:00:00, Duration: 30 day, Stop date: 11/23/12 16:00:00 Effient 10 mg, Route: PO No Longer Tanikella [facility] PO, Q12H, Dosing Active 2012 Medical Weight 78.2, kg, Center Start date: 10/24/12 21:00:00, Duration: 30 day, Stop date: 11/23/12 9:00:00 Saline Flush 10 mL, Route: IVP No Longer Martínez [place] 0.9% IVP, Drug Form: Active 2012 Medical INJ, Dosing Center Weight 78.2, kg, Q12H, Start date: 10/24/12 21:00:00, Duration: 30 day, Stop date: 11/23/12 9:00:00 Neutra-Phos 2 pkt, Route: PO No Longer Funez Kamel [facility] PO, Drug Form: Active 2012 Medical PDR/REC, Dosing Center Weight 78.2, kg, ONCE, Start date: 10/24/12 20:35:00, Stop date: 10/24/12 20:35:00 potassium 20 mEq, 100 mL, IVPB No Longer Funez Kamel [facility] chloride Route: IVPB, Active 2012 Medical Drug form: INJ, Center ONCE, Dosing Weight 78.2, kg, Start date: 10/24/12 20:34:00, Stop date: 10/24/12 20:34:00 enalapril 1.25 mg, 1 mL, IVP No Longer Dee Dee Jon Fei Route: IVP, Drug Active 2012 Medical [...] Dee Dee Jon Fei mL 125 ml/hr, Active 2012 Medical Infuse over: 8 Center hr, Route: IV, kg, Total Volume: 1,000, Start date: 10/24/12 16:06:00, Duration: 30 day, Stop date: 11/23/12 16:05:00 metoprolol 25 mg, 1 tab, PO No Longer Dee Dee Jon Fei tartrate Route: PO, Drug Active 2012 Medical form: TAB, Q8H, Center Dosing Weight 78.2, kg, Start date: 10/24/12 16:00:00, Duration: 30 day, Stop date: 11/23/12 8:00:00 clonazepam 0.5 mg, 1 tab, PO No Longer Dee Dee Jon Fei Route: PO, Drug Active 2012 Medical [...] mg, 1 tab, PO No Longer Funez [facility] Fei Route: PO, Drug Active 2012 Medical form: TAB, Center Daily, Dosing Weight 78.2, kg, Priority: STAT, Start date: 10/24/12 11:44:00, Duration: 30 day, Stop date: 11/23/12 9:00:00 Effient 10 mg, 1 tab, PO No Longer Ancalla Fei Route: PO, Drug Active 2012 Medical form: TAB, Center Daily, Dosing Weight 78.2, kg, Start date: 10/24/12 11:00:00, Duration: 30 day, Stop date: 11/23/12 9:00:00 lisinopril 5 mg, 1 tab, PO No Longer Dee Dee [facility] Fei Route: PO, Drug Active 2012 Medical form: TAB, Center Daily, Dosing Weight 78.2, kg, Priority: NOW, Start date: 10/24/12 10:53:00, Duration: 30 day, Stop date: 11/23/12 9:00:00 potassium 40 mEq, 2 tab, PO No Longer Dee Dee [facility] Fei chloride Route: PO, Drug Active [...] 8 mg, 4 mL, IV No Longer Bin Fei Route: IV, Drug Active 2012 Medical form: INJ, Q8H, Center Dosing Weight 78.2, kg, PRN Nausea, Priority: NOW, Start date: 10/24/12 7:56:00, Stop date: 11/23/12 7:55:00 metoprolol 5 5 mg, Route: IV, IV No Longer aPm Fei mg/5 ml INJ ONCE, Dosing Active [...] 24 hr aspirin 200 mg, 1 supp, AR No Longer Orozco Fei Route: AR, Drug Active 2012 Medical form: SUPP, Center [...] Duration: 1 doses or times, Dose=2.2ml/kg, Max [id number] -- "To be infused by Radiology Staff ONLY"Dose=2.2ml/ kg, Max [id number] -- "To be infused by Radiology Staff [...] Duration: 1 doses or times, Dose=2.2ml/kg, Max [id number] -- "To be infused by Radiology Staff ONLY"Dose=2.2ml/ kg, Max [id number] -- "To be infused by Radiology Staff ONLY" Insulin 100 mL, Rate: IV No Longer Hendricks Fei (regular) 0.1units/kg/hour Active 2012 Medical Titrate [...] 1,000 mL, Rate: IV No Longer Isaac [place] 0.9% IV 1,000 100 ml/hr, Active 2012 Medical mL + M.V.I.-12 Infuse over: Center 10 mL Daily + 10.1 hr, Route: folic acid IV 1 IV, kg, Total mg Daily + Volume: 1,011.2, thiamine IV 1 Start date: 10/23/12 8:41:00, Duration: 3 day, Stop date: 10/26/12 8:40:00 Insulin regular 100 mL, Rate: IVPB No Longer Isaac [place] 100 unit + Start Insulin Active 2012 [...] gm, 50 mL, IVP No Longer Isaac [place] Syringe Route: IVP, Drug Active 2012 Medical Form: INJ, Center Dosing Weight 113.636, kg, PRN, PRN Blood Glucose Results, Start date: 10/23/12 8:17:00, Duration: 30 day, Stop date: 11/22/12 9:16:00 normal saline 1,000 mL, Rate: IV No Longer Isaac [facility] 0.9% IV 1,000 150 ml/hr, Active 2012 [...] mg, 0.5 mL, IV No Longer Funez [facility] Fei Route: IV, Drug Active 2012 Medical form: INJ, Q4H, Center Dosing Weight 113.636, kg, PRN Other -See Comment, Start date: 10/23/12 0:38:00, Duration: 30 day, Stop date: 11/22/12 0:37:00, hypertesnion acetaminophen 650 mg, 1 supp, AR No Longer Kristy Fei Route: AR, Drug Active 2012 Medical form: SUPP, Q6H, Center Dosing Weight 113.636, kg, PRN Fever, Start date: 10/23/12 0:37:00, Duration: 30 day, Stop date: 11/22/12 0:36:00 Dilaudid 0.5 mg, 0.25 mL, IV No Longer Dalton Fei Route: IV, Drug Active 2012 Medical form: INJ, Q2H, Center Dosing Weight 113.636, kg, PRN Pain, Start date: 10/23/12 0:37:00, Duration: 30 day, Stop date: 11/22/12 0:36:00 metoprolol 5 5 mg, 5 mL, IVP No Longer Funez [facility] Fei mg/5 ml INJ Route: IVP, Drug Active 2012 Medical form: INJ, Q3H, Center Dosing Weight 113.636, kg, PRN Hypertension, Start date: 10/23/12 0:35:00, Duration: 30 day, Stop date: 11/22/12 0:34:00 Insulin regular 2 unit, 0.02 mL, SUB-Q No Longer Isaac Fei Route: SUB-Q, Active 2012 Medical Drug form: SOLN, Center Sliding Scale, Dosing Weight 113.636, kg, PRN Blood Glucose Results, Start date: 10/23/12 0:26:00, Duration: 30 day, Stop date: 11/22/12 1:25:00 glucagon 1 mg, Route: IM, IM No Longer Isaac [place] Drug form: Active 2012 Medical PDR/INJ, PRN, Center Dosing Weight 113.636, kg, PRN Blood Glucose Results, Start date: 10/23/12 0:26:00, Duration: 30 day, Stop date: 11/22/12 1:25:00 Dextrose 50% 25 gm, 50 mL, IVP No Longer Isaac [place] Syringe Route: IVP, Drug Active 2012 Medical Form: INJ, Center Dosing Weight 113.636, kg, PRN, PRN Blood Glucose Results, Start date: 10/23/12 0:26:00, Duration: 30 day, Stop date: 11/22/12 1:25:00 Zofran ODT 8 mg, 1 tab, PO No Longer Steward [place] Route: PO, Drug Active 2012 Medical form: TABDIS, Center Q8H, Dosing Weight 113.636, kg, PRN Nausea, Start date: 10/23/12 0:02:00, Stop date: 11/22/12 0:01:00 heparin 5,000 unit, SUB-Q No Longer Brian [place] Route: SUB-Q, Active 2012 Medical Q8H, Dosing Center Weight 113.636, kg, Start date: 10/23/12 0:00:00, Duration: 30 day, Stop date: 11/21/12 16:00:00 carvedilol 25 Daily, No Longer [place] mg oral tablet Substitution Active 2012 Medical Allowed [place] Diovan HCT 160 1 tab, PO, PO No Longer [place] mg-12.5 mg oral Daily, 30 tab, Active 2012 Medical tablet Substitution Center Allowed, Maintenance, TAB D5W 1/2NS + KCL 1,000 mL, Rate: IV No Longer Isaac [place] 20mEq/L 1000ml 150 ml/hr, Active 2012 Medical [...] mg, 10 mL, [place] No Longer Pauline [facility] Fei Route: [place], Drug Active 2012 Medical form: SUSP, Center Q12H, Dosing Weight 118.2, kg, Start date: 10/07/12 14:30:00, Duration: 7 day, Stop date: 10/14/12 9:00:00 [place] 325 mg-10 15 mL, Route: PO No Longer Sushila Fei mg / 15 mL oral PO, Drug Form: Active 2012 Medical solution SOLN, Dosing Center Weight 118.2, kg, Q4H, PRN For Pain, Start date: 10/07/12 14:22:00, Duration: 30 day, Stop date: 11/06/12 14:21:00 Diovan 160 mg, 1 tab, PO No Longer Sushila [facility] Route: PO, Drug Active 2012 Medical form: TAB, Center Daily, Dosing Weight 118.2, kg, Start date: 10/07/12 14:00:00, Duration: 30 day, Stop date: 11/06/12 9:00:00 Coreg 25 mg, 1 tab, PO No Longer Sushila [facility] Route: PO, Drug Active 2012 Medical form: TAB, Q12H, Center Dosing Weight 118.2, kg, Start date: 10/07/12 14:00:00, Duration: 30 day, Stop date: 11/06/12 9:00:00 potassium 20 mEq, 100 mL, IVPB No Longer Bagshahi [facility] chloride Route: IVPB, Active 2012 Medical Drug form: INJ, Center ONCE, Dosing Weight 118.2, kg, Total dose=20 mEq, Start date: 10/07/12 7:53:00, Duration: 1 doses or times, Stop date: 10/07/12 7:53:00, For K=3.5 - 3.9 mEq/LFor K=3.5 - 3.9 mEq/L Blistex 1 appl, Route: TOP No Longer Dru Fei TOP, PRN, Drug Active 2012 Medical form: STIC PRN Center Other -See Comment, Start date: 10/06/12 22:48:00, Duration: 30 day, Stop date: 11/05/12 22:47:00 Blistex Lip Route: TOP, TOP No Longer Dru [facility] [place] Dosing Weight Active 2012 Medical 118.2, kg, PRN, Center PRN, Start date: 10/06/12 22:46:00, Duration: 30 day, Stop date: 11/05/12 22:45:00, prn Dilaudid 0.2 mg, 0.1 mL, IV No Longer Sushila [facility] Route: IV, Drug Active 2012 Medical [...] mg, 5 mL, IVP No Longer Sushila [place] mg/5 ml INJ Route: IVP, Drug Active [...] Duration: 30 day, Stop date: 11/03/12 9:00:00 [place] 325 mg-10 30 mL, Route: PO No Longer Allencami Fei mg / 15 mL oral PO, Drug Form: Active 2012 Medical solution SOLN, Dosing Center Weight 118.2, kg, Q4H, PRN Pain Score 6-10, Start date: 10/04/12 17:20:00, Duration: 30 day, Stop date: 11/03/12 17:19:00 Diovan 160 mg, 1 tab, PO No Longer Sushila [facility] Route: PO, Drug Active 2012 Medical form: TAB, Center Daily, Dosing Weight 118.2, kg, Start date: 10/04/12 14:00:00, Duration: 30 day, Stop date: 11/03/12 9:00:00 Trandate 10 mg, 2 mL, IVP No Longer Low [facility] Route: IVP, Drug Active 2012 Medical form: INJ, Q4H, Center PRN Elevated BP, Start date: 10/04/12 9:05:00, Duration: 30 day, Stop date: 11/03/12 9:04:00 hydrALAZINE 20 mg, 1 mL, IVP No Longer Low [facility] Route: IVP, Drug Active 2012 Medical [...] Lactated 1,000 mL, Rate: IV No Longer Acrpenter Fie [place] 125 ml/hr, Active 2012 Medical Injection IV Infuse over: 8 Center 1,000 mL hr, Route: IV, kg, Total Volume: 1,000, Start date: 10/04/12 7:38:00, Stop date: 11/03/12 7:37:00 Levemir 20 unit, 0.2 mL, SUB-Q No Longer Low [facility] Route: SUB-Q, Active 2012 Medical Drug form: INJ, Center Q12H, Dosing Weight 118.2, kg, Priority: NOW, Start date: 10/04/12 7:02:00, Duration: 30 day, Stop date: 11/02/12 21:00:00 hydrALAZINE 10 mg, 0.5 mL, IVP No Longer Low [facility] Route: IVP, Drug Active 2012 Medical form: INJ, ONCE, Center Dosing Weight 118.2, kg, Start date: 10/04/12 6:53:00, Stop date: 10/04/12 6:53:00 labetalol 10 mg, 2 mL, IVP No Longer Low [facility] Route: IVP, Drug Active 2012 Medical form: INJ, Center Q15Min, Dosing Weight 118.2, kg, PRN Hypertension, Start date: 10/04/12 5:11:00, Duration: 3 doses or times, Stop date: Limited # of times Insulin regular 12 unit, 0.12 SUB-Q No Longer Yorkson [facility] mL, Route: Active 2012 Medical SUB-Q, Drug Center form: SOLN, Sliding Scale, Dosing Weight 118.2, kg, PRN Blood Glucose Results, Start date: 10/04/12 0:40:00, Duration: 30 day, Stop date: 11/03/12 0:39:00 Dextrose 50% 25 gm, 50 mL, IVP No Longer Yorkson [facility] Syringe Route: IVP, Drug Active 2012 Medical Form: INJ, Center Dosing Weight 118.2, kg, PRN, PRN Blood Glucose Results, Start date: 10/04/12 0:40:00, Duration: 30 day, Stop date: 11/03/12 0:39:00 glucagon 1 mg, Route: IM, IM No Longer Yorkson [facility] Drug form: Active 2012 Medical PDR/INJ, PRN, Center Dosing Weight 118.2, kg, PRN Blood Glucose Results, Start date: 10/04/12 0:40:00, Duration: 30 day, Stop date: 11/03/12 0:39:00 Ofirmev 1,000 mg, 100 IV No Longer [facility] mL, Route: IV, Active 2012 Medical Drug form: INJ, Center Q6H, Start date: 10/03/12 18:00:00, Duration: 4 doses or times, Stop date: 10/04/12 12:00:00 Mefoxin 2 gm, Route: IVPB No Longer [facility] IVPB, Drug form: Active 2012 Medical INJ, ABXQ8H, Center Start date: 10/03/12 16:00:00, Duration: 2 doses or times, Stop date: 10/04/12 0:00:00 Lopressor 5 mg, 5 mL, IV No Longer Low [facility] Route: IV, Drug Active 2012 Medical form: INJ, Q6H, Center Start date: 10/03/12 16:00:00, Duration: 30 day, Stop date: 11/02/12 10:00:00 Humulin R 100 10 unit, 0.1 mL, SUB-Q No Longer [facility] units/mL Route: SUB-Q, Active 2012 Medical injectable Drug form: SOL, [place] solution TID-Before Meals, PRN Blood Glucose Results, Start date: 10/03/12 14:30:00, Duration: 30 day, Stop date: 11/02/12 14:29:00 Dextrose 50% in 50 mL, Route: IV No Longer [facility] 10/03[facility] Water IV IV, Start date: Active 2012 Medical 10/03/12 Center 14:29:00, Duration: 30 day, Stop date: 11/02/12 14:28:00, PRN Blood Glucose Results Dextrose 50% in 25 mL, Route: IVP No Longer [facility] 01/28[facility] Water IV IVP, Start date: Active 2012 Medical 10/03/12 Center 14:28:00, Duration: 30 day, Stop date: 11/02/12 14:27:00, PRN Blood Glucose Results Zofran 4 mg, 2 mL, IVP No Longer Low [facility] Route: IVP, Drug Active 2012 Medical form: INJ, Q8H, Center PRN Nausea, Start date: 10/03/12 14:22:00, Duration: 30 day, Stop date: 11/02/12 14:21:00 naloxone 0.2 mg, 0.5 mL, IV No Longer Bagshahi [facility] Route: IV, Drug Active 2012 Medical form: INJ, PRN, Center PRN Narcotic Reversal, Start date: 10/03/12 14:21:00, Duration: 30 day, Stop date: 11/02/12 14:20:00 hydromorphone IV, Start date: IV No Longer Low [facility] 15 mg 10/03/12 Active 2012 Medical 14:19:00, Center Duration: 30, 30 ml, 118.2 Phenergan 12.5 mg, 0.5 mL, IVPB No Longer Bagshi [facility] Route: IVPB, Active 2012 Medical Drug form: INJ, Center Q4H, PRN Nausea, Start date: 10/03/12 14:08:00, Duration: 30 day, Stop date: 11/02/12 14:07:00 Phenergan 12.5 mg, 0.5 mL, IM No Longer Bagshahi [facility] Route: IM, Drug Active 2012 Medical form: INJ, Q4H, Center PRN Nausea, Start date: 10/03/12 14:07:00, Duration: 30 day, Stop date: 11/02/12 14:06:00 Benadryl 25 mg, 0.5 mL, IM No Longer Sushila [facility] Route: IM, Drug Active 2012 Medical form: INJ, Center Bedtime, PRN Insomnia, Start date: 10/03/12 14:04:00, Duration: 30 day, Stop date: 11/02/12 14:03:00 Lactated 1,000 mL, Rate: IV No Longer Low [place] Ringers 125 ml/hr, Active 2012 Medical Injection IV Infuse over: 8 Center 1,000 mL hr, Route: IV, kg, Total Volume: 1,000, Start date: 10/03/12 14:00:00, Duration: 30 day, Stop date: 11/02/12 13:59:00 ondansetron 4 mg, 2 mL, IVP No Longer Jose [facility] Route: IVP, Drug Active 2012 Medical form: INJ, ONCE, Center Dosing Weight 118.182, kg, PRN Nausea & Vomiting, Start date: 10/03/12 11:00:00 acetaminophen-o 1 tab, Route: PO No Longer Jose [facility] xycodone 325 PO, Drug Form: Active 2012 Medical mg-5 mg oral TAB, Dosing Center tablet Weight 118.182, kg, Q4H, PRN Pain Score 1-3, Start date: 10/03/12 11:00:00, Stop date: 10/04/12 0:00:00 hydromorphone 0.5 mg, 0.25 mL, IVP No Longer Jose [facility] Route: IVP, Drug Active 2012 Medical form: INJ, Center Q5Min, Dosing Weight 118.182, kg, PRN Pain Score 4-6, Start date: 10/03/12 11:00:00, Duration: 5 doses or times, Stop date: 10/04/12 0:00:00 Lactated 1,000 mL, Rate: IV No Longer Jose 10/03[facility] Fei [place] 50 ml/hr, Infuse Active 2012 [...] 1 patch, Route: TOP No Longer Sushila 10/03[facility] Fei TOP, Drug form: Active 2012 Medical ERFILM, PRE OP, Center Start date: 10/03/12 6:00:00, Duration: 1 day, Stop date: 10/04/12 5:59:00 Mefoxin 2 gm, Route: IVPB No Longer Sushila [place] IVPB, Drug form: Active 2012 Medical INJ, PRE OP, Center Priority: STAT, Start date: 10/03/12 5:50:00, Duration: 1 day, Stop date: 10/04/12 5:49:00 Mobic 15 mg 10 mg, PO, PO Active [place] oral tablet Daily, 30 tab, 2012 Medical Substitution Center Allowed, TAB Zetia Daily, Active [facility] Substitution 2011 Medical Allowed Center Klor-Con 10 10 mEq, 1 tab, PO Active [facility] oral tablet, PO, Daily, 180 2011 Medical extended tab, Center release Substitution Allowed, ERTAB ferrous 324 mg, 1 tab, PO Active [facility] gluconate 324 PO, Daily, 100 2011 Medical mg oral tablet tab, Center Substitution Allowed, TAB Lasix 40 mg 40 mg, 1 tab, PO Active [place] oral tablet PO, Daily, 30 2011 Medical tab, Center Substitution Allowed, TAB Cymbalta 60 mg 60 mg, 1 cap, PO Active [facility] oral delayed PO, BID, 30 cap, 2011 Medical release capsule Substitution Center Allowed, ECCAP Crestor 20 mg 20 mg, 1 tab, PO Active [facility] oral tablet PO, Daily, 30 2011 Medical tab, Center Substitution Allowed, TAB Flexeril 10 mg 10 mg, 1 tab, PO Active [place] oral tablet PO, TID, PRN, 30 2011 Medical tab, for spasm, Center Substitution Allowed, TAB Lyrica 150 mg 150 mg, 1 cap, PO Active [facility] oral capsule PO, BID, 90 cap, [...] oral tablet PO, BID, 30 tab, 2011 [facility] Substitution Center Allowed NovoLog Substitution Active [place] Allowed 2011 [facility] Levemir FlexPen Substitution Active [facility] Allowed 2011 [facility] Allergies, Adverse Reactions, Alerts No Known Medication Allergies Immunizations Immunization Date Given Site Status Last Updated Comments Source influenza virus 07/14/2013 completed [facility] vaccine, Medical inactivated Center pneumococcal 07/14/2013 completed [facility] 23-valent vaccine [facility] Results Order Name Results Value Reference Date Interpretation Comments Source Range CHEMISTRY U Preg Negative Negative 08/13 Normal [facility] (08/13/2013 13:30:00) [facility] URINALYSIS UA RBC 0-2 /HPF 0 - 2 08/13 [facility] URINALYSIS UA WBC 3-5 /HPF None Seen 08/13 [facility] URINALYSIS UA Sq Epi Few /LPF Few 08/13 [facility] URINALYSIS Micro? Performed 08/13 Normal [facility] (08/13/2013 13:30:00) [facility] URINALYSIS UA Hyal Cast 0-2 0 - 2 08/13 Normal [facility] (08/13/2013 13:30:00) [facility] URINALYSIS UA Glucose 250 mg/dL Negative 08/13 [facility] URINALYSIS UA Blood Negative Negative 08/13 Normal [facility] (08/13/2013 13:30:00) [facility] URINALYSIS UA Ketones >=80 mg/dL Negative 08/13 [facility] URINALYSIS UA 0.2 0.1 - 1.0 08/13 Normal [facility] Urobilinogen /2012 [facility] URINALYSIS UA Nitrite Negative Negative 08/13 Normal [facility] (08/13/2013 13:30:00) [facility] URINALYSIS UA Bili Small 1 Negative 08/13 ABN <sup>1</sup>R [facility] *ABN* [facility] (08/13/2013 13:30:00) Comment: Center Interpret positive bilirubin results with caution. Confirmatory testing
n ot possible due to the unavailabilit y of reagent. Correlation with
seru m chemistry results recommended. URINALYSIS UA Leuk Est Negative Negative 08/13 [facility] (08/13/2013 13:30:00) [facility] URINALYSIS UA Protein Negative Negative 08/13 [facility] (08/13/2013 13:30:00) [facility] URINALYSIS UA pH 6.0 5.0 - 8.0 08/13 Normal [facility] URINALYSIS UA Spec Grav 1.020 <=1.030 08/13 Normal [facility] URINALYSIS UA Color Yellow Yellow 08/13 [facility] *NA* [facility] (08/13/2013 13:30:00) [place] URINALYSIS UA Turbidity Clear Clear 08/13 [facility] (08/13/2013 13:30:00) [facility] CHEMISTRY BE Mark 1 -2-2 - 2 08/13 Normal [facility] CHEMISTRY pO2 Mark 29 20 - 49 08/13 Normal [facility] CHEMISTRY O2 Sat Mark 55.9 40.0 - 08/13 [facility] 70.0 [facility] CHEMISTRY Temp Mark 37.0 08/13 [facility] CHEMISTRY HCO3 Mark 26 22 - 26 08/13 Normal [facility] CHEMISTRY pCO2 Mark 41 38 - 52 08/13 Normal [facility] CHEMISTRY pH Mark 7.41 7.28 - 08/13 Normal [facility] 7.42 [facility] CHEMISTRY eGFR 60 08/13 <sup>2</sup>R [facility] Comment: The Center eGFR is calculated using the CKD-EPI formula. In most young, healthy individuals the eGFR will be >90 mL/min/1.73m2 . The eGFR declines with age. An eGFR of 60-89 may be normal in some populations, particularly the elderly, for whom the CKD-EPI formula has not been extensively validated. Use of the eGFR is not recommended in the following populations:& lt;br/>
I ndividuals with unstable creatinine concentration s, including patients and those with serious co-morbid conditions.<b r/>
Patie nts with extremes in muscle mass or diet.

The data above are obtained from the National Kidney Disease Education Program (NKDEP) which additionally recommends that when the eGFR is used in patients with extremes of body mass index for purposes of drug dosing, the eGFR should be multiplied by the estimated BMI. CHEMISTRY CO2 25 24 - 32 08/13 Normal [facility] CHEMISTRY Chloride Lvl 98 95 - 109 08/13 Normal [facility] CHEMISTRY BUN 9 7 - 22 08/13 [facility] CHEMISTRY Calcium Lvl 9.1 8.5 - 10.5 08/13 Normal [facility] CHEMISTRY Glucose Lvl 301 70 - 99 08/13 [place] <sup>3</sup>I nterpretive Medical Data: [facility] reference range values reflect the clinical guidelines
of the [place] [employer]. CHEMISTRY Potassium Lvl 3.8 3.5 - 5.1 08/13 Normal [facility] CHEMISTRY Sodium Lvl 134 135 - 145 08/13 LOW [facility] CHEMISTRY Creatinine 1.1 0.5 - 1.4 08/13 Normal [facility] CHEMISTRY Bili Total 0.6 0.2 - 1.3 08/13 Normal [facility] CHEMISTRY ASPARTATE 17 0 - 37 08/13 Normal [facility] TRANSAMINASE [facility] CHEMISTRY ALANINE 22 0 - 65 08/13 Normal [facility] AMINO [facility] CHEMISTRY Albumin Lvl 3.5 3.5 - 5.0 08/13 Normal [facility] CHEMISTRY Alk Phos 130 39 - 136 08/13 Normal [facility] CHEMISTRY Total Protein 7.8 6.4 - 8.4 08/13 Normal [facility] CHEMISTRY B/C Ratio 8 6 - 25 08/13 Normal [facility] CHEMISTRY AGAP 14.8 10.0 - 12 Normal [facility] [place] 20.0 /2012 [facility] CHEMISTRY Globulin 4.3 2.0 - 4.0 12/ HI [facility] CHEMISTRY A/G Ratio 0.8 0.7 - 1.6 12 Normal [facility] HEMATOLOGY Monocytes # 0.8 0.0 - 0.8 12/ Normal [facility] HEMATOLOGY Eosinophils # 0.0 0.0 - 0.5 12 Normal [facility] HEMATOLOGY Basophils # 0.0 0.0 - 0.2 12/ Normal [facility] HEMATOLOGY Basophils 0.1 0.0 - 1.0 12/ Normal [facility] HEMATOLOGY Lymphocytes # 1.4 1.0 - 5.5 12 Normal [facility] [facility] HEMATOLOGY Segs-Bands # 10.5 1.5 - 8.1 08/13 [facility] HEMATOLOGY Monocytes 6.3 2.0 - 12.0 12 Normal [facility] HEMATOLOGY Eosinophils 0.2 0.0 - 4.0 08/13 Normal [facility] HEMATOLOGY Lymphocytes 11.3 20.0 - 1208 LOW [place] 40.0 /2012 [facility] HEMATOLOGY Segs 82.1 45.0 - 12/08 [facility] [place] 75.0 /2012 Medical [place] HEMATOLOGY WBC X 10x3 12.7 3.7 - 10.4 12 [facility] HEMATOLOGY Hct 37.0 36.0 - 12/08 Normal [place] 48.0 /2012 [facility] HEMATOLOGY RBC X 10x6 4.36 4.20 - 12/08 Normal [place] 5.40 /2012 [facility] HEMATOLOGY Hgb 12.6 12.0 - 12/08 Normal [place] 16.0 /2012 [facility] HEMATOLOGY MCV 84.8 81.0 - 12/08 Normal [place] 99.0 /2012 Medical [place] HEMATOLOGY MCH 28.8 27.0 - 12/08 Normal [place] 31.0 /2012 [facility] HEMATOLOGY MCHC 34.0 32.0 - 12/08 Normal [place] 36.0 /2012 [facility] HEMATOLOGY Platelet 238 133 - 450 12 Normal [facility] HEMATOLOGY MPV 9.5 7.4 - 10.4 12 Normal [facility] HEMATOLOGY RDW 13.1 11.5 - 12/08 Normal [facility] [place] 14.5 /2012 [facility] BEDSIDE Gluc POC Notify 07/26 [facility] GLUCOSE Comment 1 RN/MD /2012 Medical TESTING Center BEDSIDE Glucose POC 274 70 - 99 07/26 HI <sup>1</sup>I [facility] GLUCOSE nterpretive Medical TESTING Data: Center Upper Reportable Limit: 200 mg/dL. BEDSIDE Glucose POC 146 70 - 99 07/15 HI <sup>2</sup>I [facility] GLUCOSE nterpretive Medical TESTING Data: [place] Upper Reportable Limit: 200 mg/dL. BEDSIDE Gluc POC Notify 07/15 [facility] GLUCOSE Comment 1 RN/MD /2012 [facility]ING Center BEDSIDE Glucose POC 140 70 - 99 07/14 HI <sup>3</sup>I [facility] GLUCOSE nterpretive Medical TESTING Data: [place] Upper Reportable Limit: 200 mg/dL. BEDSIDE Gluc POC Notify 07/14 [facility] GLUCOSE Comment 1 RN/MD /2012 [facility]ING Center BEDSIDE Gluc POC Notify 07/14 [facility] GLUCOSE Comment 1 RN/MD /2012 Medical TESTING Center BEDSIDE Glucose POC 44 70 - 99 07/14 LOW <sup>4</sup>I [facility] nterpretive Medical TESTING Data: [place] Upper Reportable Limit: 200 mg/dL. IMMUNOLOGY [place]-HIV Negative Negative 07/14 [facility] 09/07 Ab *NA* Medical (07/14/2013 00:27:00) Center IMMUNOLOGY [place]-Hep C Negative Negative 07/14 [facility] Ab *NA* Medical (07/14/2013 00:27:00) Center CHEMISTRY eGFR 109 07/13 <sup>5</sup>R esult Medical Comment: The Center eGFR is calculated using the CKD-EPI formula. In most young, healthy individuals the eGFR will be >90 mL/min/1.73m2 . The eGFR declines with age. An eGFR of 60-89 may be normal in some populations, particularly the elderly, for whom the CKD-EPI formula has not been extensively validated. Use of the eGFR is not recommended in the following populations:& lt;br/>
I ndividuals with unstable creatinine concentration s, including patients and those with serious co-morbid conditions.<b r/>
Patie nts with extremes in muscle mass or diet.

The data above are obtained from the National Kidney Disease Education Program (NKDEP) which additionally recommends that when the eGFR is used in patients with extremes of body mass index for purposes of drug dosing, the eGFR should be multiplied by the estimated BMI. CHEMISTRY Sodium Lvl 135 135 - 145 07/13 Normal [facility] CHEMISTRY Chloride Lvl 95 95 - 109 07/13 Normal [facility] CHEMISTRY AGAP 16.5 10.0 - 07/13 Normal [facility] 20.0 [facility] CHEMISTRY Glucose Lvl 322 70 - 99 07/13 HI <sup>8</sup>I nterpretive Medical Data: [facility] reference range values reflect the clinical guidelines
of the [place] [employer]. CHEMISTRY Creatinine 0.6 0.5 - 1.4 07/13 Normal [facility] CHEMISTRY BUN 6 7 - 22 07/13 LOW [facility] CHEMISTRY Calcium Lvl 8.6 8.5 - 10.5 07/13 Normal [facility] CHEMISTRY CO2 27 24 - 32 07/13 Normal [facility] CHEMISTRY Potassium Lvl 3.5 3.5 - 5.1 07/13 Normal [facility] INFECTIOUS C difficile Negative 1 Negative 07/13 Normal <sup>1</sup>I [facility] DNA (07/13/2013 00:00:59) nterpretive [facility]: [facility] Clostridium difficile assay utilizes loop-mediated isothermal DNA amplification (LAMP) technology to detect a 204 bp region of the tcdA gene within the PaLoc gene segment present in all known toxigenic C. difficile strains.

The assay utilizes FDA cleared IVD reagents. Performance characteristi cs have been verified by the [facility] within the [facility]. The [facility] is authorized under the Clinical Laboratory Improvement Amendment of 1988 (CLIA-88) to perform high complexity testing. CHEMISTRY Lactic Acid 1.9 0.5 - 2.2 07/12 Normal [facility] CHEMISTRY eGFR 88 07/12 <sup>6</sup>R esult Medical Comment: The Center eGFR is calculated using the CKD-EPI formula. In most young, healthy individuals the eGFR will be >90 mL/min/1.73m2 . The eGFR declines with age. An eGFR of 60-89 may be normal in some populations, particularly the elderly, for whom the CKD-EPI formula has not been extensively validated. Use of the eGFR is not recommended in the following populations:& lt;br/>
I ndividuals with unstable creatinine concentration s, including patients and those with serious co-morbid conditions.<b r/>
Patie nts with extremes in muscle mass or diet.

The data above are obtained from the National Kidney Disease Education Program (NKDEP) which additionally recommends that when the eGFR is used in patients with extremes of body mass index for purposes of drug dosing, the eGFR should be multiplied by the estimated BMI. CHEMISTRY Troponin-I <0.02 0.00 - 07/12 Normal [facility] 0.40 /2012 [facility] HEMATOLOGY Basophils # 0.0 0.0 - 0.2 07/12 Normal [facility] HEMATOLOGY Eosinophils # 0.3 0.0 - 0.5 07/12 Normal [facility] HEMATOLOGY Monocytes # 1.0 0.0 - 0.8 07/12 HI [facility] HEMATOLOGY Lymphocytes # 3.0 1.0 - 5.5 07/12 Normal [facility] HEMATOLOGY Segs-Bands # 6.4 1.5 - 8.1 07/12 Normal [facility] HEMATOLOGY Basophils 0.4 0.0 - 1.0 07/12 Normal [facility] HEMATOLOGY Eosinophils 2.8 0.0 - 4.0 07/12 Normal [facility] HEMATOLOGY Plt Morph Normal 07/12 Normal [facility] (07/12/2013 16:29:10) [facility] HEMATOLOGY RBC Morph Normal 07/12 Normal [facility] (07/12/2013 16:29:10) [facility] HEMATOLOGY Monocytes 9.4 2.0 - 12.0 07/12 Normal [facility] HEMATOLOGY Lymphocytes 27.9 20.0 - 07/12 Normal [place] 40.0 [facility] HEMATOLOGY Segs 59.5 45.0 - 07/12 Normal [place] 75.0 [facility] HEMATOLOGY MCV 85.3 81.0 - 07/12 Normal [place] 99.0 [facility] HEMATOLOGY Hct 41.2 36.0 - 07/12 Normal [facility] 48.0 /2012 Medical Center HEMATOLOGY Hgb 13.6 12.0 - 11 Normal [facility] 16.0 /2012 Medical Center HEMATOLOGY RBC X 10x6 4.84 4.20 - 11 Normal [facility] 5.40 /2012 Medical Center HEMATOLOGY MPV 9.4 7.4 - 10.4 11 Normal [facility] HEMATOLOGY Platelet 225 133 - 450 11 Normal [facility] HEMATOLOGY MCH 28.1 27.0 - 11 Normal [facility] 31.0 /2012 Medical Center HEMATOLOGY MCHC 33.0 32.0 - 11 Normal [facility] 36.0 /2012 Medical Center HEMATOLOGY RDW 12.7 11.5 - 11 Normal [facility] 14.5 /2012 Medical Center HEMATOLOGY WBC X 10x3 10.7 3.7 - 10.4 07/12 HI Medical Center CHEMISTRY AGAP 12.4 10.0 - 07/12 Normal [facility] 20.0 Medical Center CHEMISTRY Calcium Lvl 8.8 8.5 - 10.5 07/12 Normal Medical Center CHEMISTRY Chloride Lvl 102 95 - 109 07/12 Normal [facility] CHEMISTRY Potassium Lvl 3.4 3.5 - 5.1 07/12 LOW [facility] CHEMISTRY CO2 30 24 - 32 07/12 Normal Medical Center CHEMISTRY Sodium Lvl 141 135 - 145 07/12 Normal Medical [facility] CHEMISTRY Creatinine 0.8 0.5 - 1.4 07/12 Normal [facility] CHEMISTRY BUN 6 7 - 22 07/12 LOW Medical Center CHEMISTRY Glucose Lvl 163 70 - 99 07/12 HI <sup>9</sup>I nterpretive Medical Data: Adult Center reference range values reflect the clinical guidelines
of the [place] [employer]. IMMUNOLOGY CDC-HIV 1/2 Negative Negative 07/12 [facility] Ab *NA* /2012 Medical (07/12/2013 16:02:06) Center CHEMISTRY Calcium Lvl 8.4 8.5 - 10.5 07/12 LOW Medical Center CHEMISTRY AGAP 10.4 10.0 - 07/12 Normal [facility] 20.0 Medical Center CHEMISTRY eGFR 76 07/12 <sup>7</sup>R esult Medical Comment: The Center eGFR is calculated using the CKD-EPI formula. In most young, healthy individuals the eGFR will be >90 mL/min/1.73m2 . The eGFR declines with age. An eGFR of 60-89 may be normal in some populations, particularly the elderly, for whom the CKD-EPI formula has not been extensively validated. Use of the eGFR is not recommended in the following populations:& lt;br/>
I ndividuals with unstable creatinine concentration s, including patients and those with serious co-morbid conditions.<b r/>
Patie nts with extremes in muscle mass or diet.

The data above are obtained from the National Kidney Disease Education Program (NKDEP) which additionally recommends that when the eGFR is used in patients with extremes of body mass index for purposes of drug dosing, the eGFR should be multiplied by the estimated BMI. CHEMISTRY Sodium Lvl 140 135 - 145 07/12 Normal [facility] CHEMISTRY Chloride Lvl 103 95 - 109 07/12 Normal [facility] CHEMISTRY Potassium Lvl 3.4 3.5 - 5.1 07/12 LOW [facility] CHEMISTRY BUN 9 7 - 22 07/12 Normal [facility] CHEMISTRY Creatinine 0.9 0.5 - 1.4 07/12 Normal [facility] CHEMISTRY Glucose Lvl 296 70 - 99 07/12 HI <sup>10</sup> Interpretive Medical Data: Adult Center reference range values reflect the clinical guidelines
of the [place] [employer]. CHEMISTRY CO2 30 24 - 32 07/12 Normal [facility] CHEMISTRY Troponin-I <0.02 0.00 - 11 Normal [facility] 0.40 /2012 [facility] CHEMISTRY Lipase Lvl 76 73 - 393 07/12 Normal [facility] CHEMISTRY B/C Ratio 11 6 - 25 07/12 Normal [facility] CHEMISTRY ASPARTATE 25 0 - 37 07/12 Normal [facility] TRANSAMINASE [facility] CHEMISTRY Bili Total 0.4 0.2 - 1.3 07/12 Normal [facility] CHEMISTRY Alk Phos 119 39 - 136 07/12 Normal [facility] CHEMISTRY Albumin Lvl 3.9 3.5 - 5.0 07/12 Normal [facility] CHEMISTRY ALANINE 29 0 - 65 07/12 Normal [facility] CHEMISTRY Total Protein 8.1 6.4 - 8.4 07/12 Normal [facility] CHEMISTRY Globulin 4.2 2.0 - 4.0 07/12 HI [facility] CHEMISTRY A/G Ratio 0.9 0.7 - 1.6 07/12 Normal [facility] HEMATOLOGY Monocytes # 0.6 0.0 - 0.8 07/12 Normal [facility] HEMATOLOGY Segs-Bands # 9.5 1.5 - 8.1 07/12 HI [facility] HEMATOLOGY Eosinophils # 0.2 0.0 - 0.5 07/12 Normal [facility] HEMATOLOGY Lymphocytes # 2.1 1.0 - 5.5 07/12 Normal [facility] HEMATOLOGY Basophils 0.2 0.0 - 1.0 07/12 Normal [facility] HEMATOLOGY Neut Vac Slight None Seen 07/12 ABN [place] *ABN* /2012 [facility] (07/12/2013 03:30:00) [place] HEMATOLOGY Hypochrom Slight None Seen 07/12 Normal [facility] (07/12/2013 03:30:00) /2012 [facility] HEMATOLOGY Basophils # 0.0 0.0 - 0.2 07/12 Normal [facility] HEMATOLOGY RBC Morph Normal 07/12 Normal [facility] (07/12/2013 03:30:00) [facility] HEMATOLOGY Eosinophils 1.6 0.0 - 4.0 07/12 Normal [facility] HEMATOLOGY Monocytes 4.6 2.0 - 12.0 07/12 Normal [facility] HEMATOLOGY Segs 76.6 45.0 - 07/12 HI [place] 75.0 [facility] HEMATOLOGY Lymphocytes 17.0 20.0 - 07/12 LOW [place] 40.0 [facility] HEMATOLOGY Plt Morph Normal 07/12 Normal [facility] (07/12/2013 03:30:00) /2012 [facility] HEMATOLOGY MCHC 32.4 32.0 - 07/12 Normal [place] 36.0 [facility] HEMATOLOGY MCH 27.4 27.0 - 07/12 Normal [place] 31.0 [facility] HEMATOLOGY RDW 12.7 11.5 - 07/12 Normal [facility] 14.5 /2012 [facility] HEMATOLOGY Platelet 235 133 - 450 07/12 Normal [place] [facility] HEMATOLOGY MPV 9.4 7.4 - 10.4 07/12 Normal [facility] HEMATOLOGY Hgb 12.9 12.0 - 07/12 Normal [facility] 16.0 /2012 [facility] HEMATOLOGY MCV 84.3 81.0 - 07/12 Normal [facility] 99.0 [facility] HEMATOLOGY Hct 39.6 36.0 - 07/12 Normal [facility] 48.0 /2012 [facility] HEMATOLOGY WBC X 10x3 12.4 3.7 - 10.4 07/12 HI [facility] HEMATOLOGY RBC X 10x6 4.70 4.20 - 07/12 Normal [facility] 5.40 /2012 [facility] CHEMISTRY U Preg Negative Negative 07/12 Normal [facility] (07/12/2013 03:00:00) [facility] URINALYSIS UA Leuk Est Negative Negative 07/12 Normal [facility] (07/12/2013 03:00:00) [facility] URINALYSIS UA 0.2 0.1 - 1.0 07/12 Normal [facility] Urobilinogen [facility] URINALYSIS UA Nitrite Negative Negative 07/12 Normal [facility] (07/12/2013 03:00:00) Medical Center URINALYSIS UA Bili Negative Negative 07/12 [facility] *NA* [facility] (07/12/2013 03:00:00) Center URINALYSIS UA pH 6.0 5.0 - 8.0 07/12 Normal [facility] URINALYSIS UA Protein Negative Negative 07/12 Normal [facility] mg/dL Medical Center URINALYSIS UA Glucose >=1000 Negative 07/12 ABN [facility] mg/dL Medical Center URINALYSIS UA Ketones 15 mg/dL Negative 07/12 ABN [facility] Center URINALYSIS UA Spec Grav 1.020 <=1.030 07/12 Normal [facility] URINALYSIS UA Blood Negative Negative 07/12 Normal [facility] (07/12/2013 03:00:00) Medical Center URINALYSIS UA Color Yellow Yellow 07/12 [facility] *NA* Medical (07/12/2013 03:00:00) Center URINALYSIS UA Turbidity Clear Clear 07/12 Normal [facility] (07/12/2013 03:00:00) Medical Center URINALYSIS UA RBC 0-2 /HPF 0 - 2 07/12 Normal Medical Center URINALYSIS UA WBC 3-5 /HPF None Seen 07/12 Normal [facility] URINALYSIS UA Sq Epi Many /LPF Few 07/12 ABN Medical [place] URINALYSIS UA Bacteria Few /HPF None Seen 07/12 Normal Medical [place] URINALYSIS UA Maribel Yeast Moderate None Seen 07/12 ABN / Medical Center URINALYSIS Micro? Performed 07/12 Normal [facility] (07/12/2013 03:00:00) Medical Center BEDSIDE Gluc POC 226 70 - 99 04/03 HI <sup>1</sup>I [facility] GLUCOSE Lifscn nterpretive Medical TESTING Data: [place] Upper Reportable Limit: 200 mg/dL. BEDSIDE Comment2 Sliding 04/03 NA [facility] GLUCOSE Scale Medical TESTING Center BEDSIDE Comment1 Notify 04/03 NA [facility] GLUCOSE RN/ Medical TESTING Center BEDSIDE Comment1 Notify 04/03 NA [facility] GLUCOSE RN/ Medical TESTING Center BEDSIDE Gluc POC 198 70 - 99 04/03 HI <sup>2</sup>I [facility] GLUCOSE Lifscn nterpretive Medical TESTING Data: [place] Upper Reportable Limit: 200 mg/dL. BEDSIDE Comment2 Sliding 04/03 NA [facility] GLUCOSE Scale Medical TESTING Center BEDSIDE Comment2 Sliding 04/03 NA [facility] GLUCOSE Scale Medical TESTING Center BEDSIDE Comment1 Notify 04/03 NA [facility] GLUCOSE RN/ /2012 Medical TESTING Center BEDSIDE Gluc POC 182 70 - 99 04/03 HI <sup>3</sup>I [facility] GLUCOSE Lifscn nterpretive Medical TESTING Data: [place] Upper Reportable Limit: 200 mg/dL. CHEMISTRY Troponin-T <0.010 0.000 - 04/03 Normal [facility] 0.100 /2012 [facility] CHEMISTRY Troponin-I <0.02 0.00 - 04/03 Normal [facility] 0.40 /2012 [facility] CHEMISTRY Total CK 41 12 - 191 04/03 Normal Medical Center CHEMISTRY Creatinine 0.6 0.5 - 1.4 04/03 Normal [facility] Lvl Medical Center CHEMISTRY Sodium Lvl 137 135 - 145 04/03 Normal [facility] CHEMISTRY CO2 25 24 - 32 04/03 Normal [facility] CHEMISTRY Calcium Lvl 8.2 8.5 - 10.5 04/03 LOW [facility] CHEMISTRY AGAP 17.9 10.0 - 04/03 Normal [facility] 20.0 [facility] CHEMISTRY Potassium Lvl 3.9 3.5 - 5.1 04/03 Normal [facility] CHEMISTRY Chloride Lvl 98 95 - 109 04/03 Normal [facility] CHEMISTRY Glucose Lvl 266 70 - 99 04/03 HI <sup>6</sup>I nterpretive Medical Data: Adult Center reference range values reflect the clinical guidelines
of the [place] [employer]. CHEMISTRY BUN 3 7 - 22 04/03 LOW [facility] CHEMISTRY eGFR 109 04/03 NA <sup>4</sup>R esult Medical Comment: The Center eGFR is calculated using the CKD-EPI formula. In most young, healthy individuals the eGFR will be >90 mL/min/1.73m2 . The eGFR declines with age. An eGFR of 60-89 may be normal in some populations, particularly the elderly, for whom the CKD-EPI formula has not been extensively validated. Use of the eGFR is not recommended in the following populations:& lt;br/>
I ndividuals with unstable creatinine concentration s, including patients and those with serious co-morbid conditions.<b r/>
Patie nts with extremes in muscle mass or diet.

The data above are obtained from the National Kidney Disease Education Program (NKDEP) which additionally recommends that when the eGFR is used in patients with extremes of body mass index for purposes of drug dosing, the eGFR should be multiplied by the estimated BMI. HEMATOLOGY Hgb 10.5 12.0 - 04/03 LOW [place] 16.0 [facility] HEMATOLOGY RBC 4.22 4.20 - 04/03 Normal [facility] 5.40 [facility] HEMATOLOGY WBC 10.3 3.7 - 10.4 04/03 Normal [facility] HEMATOLOGY Hct 33.5 36.0 - 04/03 LOW [place] 48.0 [facility] HEMATOLOGY MPV 8.8 7.4 - 10.4 04/03 Normal [facility] HEMATOLOGY Platelet 276 133 - 450 04/03 Normal [facility] HEMATOLOGY RDW 18.7 11.5 - 04/03 HI [place] 14.5 /2012 Medical [place] HEMATOLOGY MCHC 31.2 32.0 - 04/03 LOW [place] 36.0 /2012 Medical [place] HEMATOLOGY MCH 24.8 27.0 - 04/03 LOW [place] 31.0 /2012 Medical Center HEMATOLOGY MCV 79.5 81.0 - 04/03 LOW [place] 99.0 /2012 Medical [place] HEMATOLOGY Segs 58.6 45.0 - 04/03 Normal [place] 75.0 /2012 Medical [place] HEMATOLOGY Lymphocytes 29.9 20.0 - 04/03 Normal [place] 40.0 [facility] HEMATOLOGY Basophils 1.3 0.0 - 1.0 04/03 HI [facility] HEMATOLOGY Lymphocytes # 3.1 1.0 - 5.5 04/03 Normal [facility] HEMATOLOGY Segs-Bands # 6.0 1.5 - 8.1 04/03 Normal [facility] HEMATOLOGY Eosinophils 2.8 0.0 - 4.0 04/03 Normal [facility] HEMATOLOGY Eosinophils # 0.3 0.0 - 0.5 04/03 Normal [facility] HEMATOLOGY Monocytes # 0.8 0.0 - 0.8 04/03 Normal [facility] HEMATOLOGY Basophils # 0.1 0.0 - 0.2 04/03 Normal [facility] HEMATOLOGY Monocytes 7.4 2.0 - 12.0 04/03 Normal [facility] CHEMISTRY Troponin-I <0.02 0.00 - 04/03 Normal [place] 0.40 [facility] CHEMISTRY Total CK 51 12 - 191 04/03 Normal [facility] CHEMISTRY Troponin-T <0.010 0.000 - 04/03 Normal [place] 0.100 [facility] CHEMISTRY Bili Direct 0.1 0.0 - 0.3 04/03 Normal [facility] CHEMISTRY Bili Total 0.4 0.2 - 1.3 04/03 Normal [facility] CHEMISTRY Bili Indirect 0.3 0.0 - 1.0 04/03 Normal [facility] CHEMISTRY ALT 22 0 - 65 07/29 Normal [facility] CHEMISTRY AST 31 0 - 37 04/03 Normal [facility] CHEMISTRY Lipase Lvl 54 73 - 393 04/03 LOW [facility] CHEMISTRY Troponin-I <0.02 0.00 - 04/02 Normal [facility] 0.40 [facility] CHEMISTRY Total CK 24 12 - 191 04/02 Normal [facility] CHEMISTRY AGAP 17.5 10.0 - 04/02 Normal [facility] 20.0 [facility] CHEMISTRY eGFR 88 04/02 NA <sup>5</sup>R esult Medical Comment: The Center eGFR is calculated using the CKD-EPI formula. In most young, healthy individuals the eGFR will be >90 mL/min/1.73m2 . The eGFR declines with age. An eGFR of 60-89 may be normal in some populations, particularly the elderly, for whom the CKD-EPI formula has not been extensively validated. Use of the eGFR is not recommended in the following populations:& lt;br/>
I ndividuals with unstable creatinine concentration s, including patients and those with serious co-morbid conditions.<b r/>
Patie nts with extremes in muscle mass or diet.

The data above are obtained from the National Kidney Disease Education Program (NKDEP) which additionally recommends that when the eGFR is used in patients with extremes of body mass index for purposes of drug dosing, the eGFR should be multiplied by the estimated BMI. CHEMISTRY Creatinine 0.8 0.5 - 1.4 04/02 Normal [facility] Lvl /2012 [facility] CHEMISTRY Potassium Lvl 3.5 3.5 - 5.1 04/02 Normal [facility] CHEMISTRY Chloride Lvl 97 95 - 109 04/02 Normal [facility] CHEMISTRY Glucose Lvl 163 70 - 99 04/02 HI <sup>7</sup>I nterpretive Medical Data: Adult Center reference range values reflect the clinical guidelines
of the [place] [employer]. CHEMISTRY BUN 2 7 - 22 04/02 LOW [facility] CHEMISTRY Sodium Lvl 136 135 - 145 04/02 Normal [facility] CHEMISTRY Calcium Lvl 8.6 8.5 - 10.5 04/02 Normal [facility] CHEMISTRY CO2 25 24 - 32 04/02 [facility] /2013 [facility] HEMATOLOGY Platelet 378 133 - 450 04/02 Normal [facility] HEMATOLOGY MCHC 33.4 32.0 - 07 Normal [place] 36.0 /2012 [facility] HEMATOLOGY RDW 17.3 11.5 - 04/02 HI [place] 14.5 [facility] HEMATOLOGY MCV 76.0 81.0 - 04/02 LOW [place] 99.0 /2012 [facility] HEMATOLOGY MCH 25.4 27.0 - 04/02 LOW [place] 31.0 /2012 [facility] HEMATOLOGY Hct 34.2 36.0 - 04/02 LOW [place] 48.0 /2012 [facility] HEMATOLOGY RBC 4.50 4.20 - 04/02 Normal [place] 5.40 /2012 [facility] HEMATOLOGY Hgb 11.4 12.0 - 04/02 [facility] [place] 16.0 /2012 [facility] HEMATOLOGY WBC 9.0 3.7 - 10.4 04/02 Normal [facility] HEMATOLOGY MPV 8.4 7.4 - 10.4 04/02 Normal [facility] HEMATOLOGY Microcyte 2+ None Seen 04/02 ABN [place] *ABN* /2012 Medical (04/02/2013 17:09:00) [place] HEMATOLOGY Basophils # 0.1 0.0 - 0.2 04/02 Normal [facility] HEMATOLOGY Eosinophils # 0.1 0.0 - 0.5 04/02 Normal [facility] HEMATOLOGY Monocytes # 0.7 0.0 - 0.8 04/02 Normal [facility] HEMATOLOGY Lymphocytes # 1.4 1.0 - 5.5 04/02 Normal [facility] HEMATOLOGY Segs-Bands # 6.7 1.5 - 8.1 04/02 Normal [facility] HEMATOLOGY Basophils 1.3 0.0 - 1.0 04/02 HI [facility] HEMATOLOGY Lymphocytes 15.2 20.0 - 04/02 LOW [place] 40.0 [facility] HEMATOLOGY Segs 74.3 45.0 - 04/02 Normal [place] 75.0 [facility] HEMATOLOGY Eosinophils 1.6 0.0 - 4.0 04/02 Normal [facility] HEMATOLOGY Monocytes 7.6 2.0 - 12.0 04/02 Normal [facility] BEDSIDE Gluc POC 229 70 - 99 07 HI <sup>1</sup>I [facility] GLUCOSE [employer] /2012 nterpretive Medical TESTING Data: Center Upper Reportable Limit: 200 mg/dL. BEDSIDE Comment1 Notify 03/09 NA [facility] GLUCOSE RN/ Medical TESTING Center CHEMISTRY eGFR 88 03/09 NA <sup>4</sup>R esult Medical Comment: The Center eGFR is calculated using the CKD-EPI formula. In most young, healthy individuals the eGFR will be >90 mL/min/1.73m2 . The eGFR declines with age. An eGFR of 60-89 may be normal in some populations, particularly the elderly, for whom the CKD-EPI formula has not been extensively validated. Use of the eGFR is not recommended in the following populations:& lt;br/>
I ndividuals with unstable creatinine concentration s, including patients and those with serious co-morbid conditions.<b r/>
Patie nts with extremes in muscle mass or diet.

The data above are obtained from the National Kidney Disease Education Program (NKDEP) which additionally recommends that when the eGFR is used in patients with extremes of body mass index for purposes of drug dosing, the eGFR should be multiplied by the estimated BMI. CHEMISTRY BUN 7 7 - 22 03/09 Normal [facility] CHEMISTRY Creatinine 0.8 0.5 - 1.4 03/09 [facility] /2012 [facility] CHEMISTRY Sodium Lvl 138 135 - 145 03/09 [facility] CHEMISTRY Potassium Lvl 4.7 3.5 - 5.1 03/09 [facility] CHEMISTRY Chloride Lvl 104 95 - 109 03/09 Normal [facility] CHEMISTRY CO2 23 24 - 32 03/09 [facility] CHEMISTRY Bili Total 0.2 0.2 - 1.3 03/09 [facility] CHEMISTRY AST 22 0 - 37 / [facility]2012 [facility] CHEMISTRY Total Protein 4.8 6.4 - 8.4 03/09 [facility]2012 [facility] CHEMISTRY Calcium Lvl 7.4 8.5 - 10.5 03/09 [facility]2012 [facility] CHEMISTRY Albumin Lvl 1.9 3.5 - 5.0 03/09 [facility] CHEMISTRY Glucose Lvl 192 70 - 99 07 HI <sup>7</sup>I nterpretive Medical Data: Adult Center reference range values reflect the clinical guidelines
of the [place] [employer]. CHEMISTRY Alk Phos 162 39 - 136 07/ HI [facility] CHEMISTRY ALT 18 0 - 65 07 Normal [facility] CHEMISTRY A/G Ratio 0.7 0.7 - 1.6 03/09 Normal [facility] CHEMISTRY Globulin 2.9 2.0 - 4.0 07 Normal [facility] CHEMISTRY AGAP 15.7 10.0 - 0704 Normal [place] 20.0 [facility] CHEMISTRY B/C Ratio 9 6 - 25 03/09 Normal [facility] HEMATOLOGY Eosinophils 1.9 0.0 - 4.0 07 Normal [facility] HEMATOLOGY Basophils 1.0 0.0 - 1.0 03/09 Normal [facility] HEMATOLOGY Anisocyte 1+ None Seen 03/09 Psychiatric *ABN* /2012 [facility] (03/09/2013 01:09:00) [place] HEMATOLOGY Lymphocytes # 2.0 1.0 - 5.5 07/ Normal [facility] HEMATOLOGY Monocytes # 0.6 0.0 - 0.8 07 Normal [facility] HEMATOLOGY Eosinophils # 0.1 0.0 - 0.5 07/ Normal [facility] HEMATOLOGY Basophils # 0.1 0.0 - 0.2 07 Normal [facility] HEMATOLOGY Segs-Bands # 4.6 1.5 - 8.1 07 Normal [facility] HEMATOLOGY Segs 62.8 45.0 - 07/04 Normal [place] 75.0 /2012 [facility] HEMATOLOGY Lymphocytes 26.4 20.0 - 07/04 Normal [place] 40.0 /2012 [facility] HEMATOLOGY Monocytes 7.9 2.0 - 12.0 07/ Normal [facility] HEMATOLOGY RDW 20.7 11.5 - 07/04 HI [place] 14.5 /2012 [facility] HEMATOLOGY Platelet 304 133 - 450 07 Normal [facility] HEMATOLOGY MPV 8.0 7.4 - 10.4 07 [facility] HEMATOLOGY Hct 24.9 36.0 - 07/ [facility] [place] 48.0 /2013 [facility] HEMATOLOGY MCV 79.3 81.0 - 07/ [facility] [place] 99.0 /2012 Medical Center HEMATOLOGY MCH 24.7 27.0 - 07/ [facility] [place] 31.0 /2012 [facility] HEMATOLOGY MCHC 31.2 32.0 - 07/ [facility] [place] 36.0 /2012 [facility] HEMATOLOGY RBC 3.14 4.20 - 07/ [facility] [place] 5.40 /2012 [facility] HEMATOLOGY Hgb 7.8 12.0 - 07/ [facility] [place] 16.0 /2012 [facility] HEMATOLOGY WBC 7.4 3.7 - 10.4 07/ Normal [facility] BEDSIDE Gluc POC 131 70 - 99 03/09 HI <sup>2</sup>I [facility] GLUCOSE md nterpretive Medical TESTING Data: Center Upper Reportable Limit: 200 mg/dL. BEDSIDE Comment1 Notify 03/09 NA [facility] GLUCOSE RN/MD /2012 [facility] TESTING Center BEDSIDE Comment1 Notify 03/09 NA [facility] GLUCOSE RN/MD /2012 [facility] TESTING Center BEDSIDE Gluc POC 155 70 - 99 03/09 HI <sup>3</sup>I [facility] GLUCOSE [facility] nterpretive Medical TESTING Data: Center Upper Reportable Limit: 200 mg/dL. CHEMISTRY Magnesium Lvl 1.5 1.8 - 2.4 03/08 [facility] CHEMISTRY A/G Ratio 0.7 0.7 - 1.6 03/08 Normal [facility] CHEMISTRY B/C Ratio 8 6 - 25 03/08 Normal [facility] CHEMISTRY Globulin 2.8 2.0 - 4.0 03/08 Normal [facility] CHEMISTRY AGAP 15.8 10.0 - 07/03 Normal [place] 20.0 [facility] CHEMISTRY Potassium Lvl 3.8 3.5 - 5.1 07 Normal [facility] CHEMISTRY Chloride Lvl 100 95 - 109 07/ Normal [facility] CHEMISTRY CO2 23 24 - 32 07/ [facility] CHEMISTRY Total Protein 4.8 6.4 - 8.4 07 [facility] CHEMISTRY AST 10 0 - 37 07 Normal [facility] CHEMISTRY Calcium Lvl 7.6 8.5 - 10.5 03/08 [facility] CHEMISTRY Bili Total 0.3 0.2 - 1.3 03/08 Normal [facility] CHEMISTRY eGFR 88 03/08 NA <sup>5</sup>R esult Medical Comment: The Center eGFR is calculated using the CKD-EPI formula. In most young, healthy individuals the eGFR will be >90 mL/min/1.73m2 . The eGFR declines with age. An eGFR of 60-89 may be normal in some populations, particularly the elderly, for whom the CKD-EPI formula has not been extensively validated. Use of the eGFR is not recommended in the following populations:& lt;br/>
I ndividuals with unstable creatinine concentration s, including patients and those with serious co-morbid conditions.<b r/>
Patie nts with extremes in muscle mass or diet.

The data above are obtained from the National Kidney Disease Education Program (NKDEP) which additionally recommends that when the eGFR is used in patients with extremes of body mass index for purposes of drug dosing, the eGFR should be multiplied by the estimated BMI. CHEMISTRY Glucose Lvl 198 70 - 99 03/08 HI <sup>8</sup>I nterpretive Medical Data: [facility] reference range values reflect the clinical guidelines
of the [place] [employer]. CHEMISTRY BUN 6 7 - 22 03/08 [facility] CHEMISTRY Creatinine 0.8 0.5 - 1.4 03/08 [facility] /2012 [facility] CHEMISTRY Sodium Lvl 135 135 - 145 03/08 [facility] CHEMISTRY Alk Phos 173 39 - 136 03/08 HI [facility] CHEMISTRY ALT 16 0 - 65 / [facility] CHEMISTRY Albumin Lvl 2.0 3.5 - 5.0 03/08 [facility] CHEMISTRY Lipase Lvl 54 73 - 393 03/08 [facility] CHEMISTRY Amylase Lvl 30 25 - 115 / [facility] 2012 [facility] HEMATOLOGY Basophils # 0.1 0.0 - 0.2 03/08 [facility] HEMATOLOGY Anisocyte 1+ None Seen 03/08 ABN [facility] [place] *ABN* /2012 Medical (03/08/2013 03:01:00) Center HEMATOLOGY Microcyte 1+ None Seen 03/08 [facility] [place] *ABN* /2012 Medical (03/08/2013 03:01:00) Center HEMATOLOGY Eosinophils # 0.2 0.0 - 0.5 07 Normal [facility] HEMATOLOGY Monocytes # 0.8 0.0 - 0.8 03/08 Normal [facility] HEMATOLOGY Lymphocytes 34.2 20.0 - 07 Normal [place] 40.0 /2012 [facility] HEMATOLOGY Segs 53.3 45.0 - 07 Normal [place] 75.0 /2012 [facility] HEMATOLOGY Lymphocytes # 3.0 1.0 - 5.5 07 Normal [facility] HEMATOLOGY Segs-Bands # 4.7 1.5 - 8.1 03/08 Normal [facility] HEMATOLOGY Basophils 0.9 0.0 - 1.0 / Normal [facility] HEMATOLOGY Eosinophils 2.6 0.0 - 4.0 07/ Normal [facility] HEMATOLOGY Monocytes 9.0 2.0 - 12.0 07/ Normal [facility] HEMATOLOGY Hgb 7.9 12.0 - 07 [facility] [place] 16.0 [facility] HEMATOLOGY RBC 3.12 4.20 - 07 [facility] [place] 5.40 /2012 [facility] HEMATOLOGY MPV 8.0 7.4 - 10.4 03/08 Normal [facility] HEMATOLOGY Platelet 294 133 - 450 03/08 Normal [facility] HEMATOLOGY MCH 25.3 27.0 - 07 [facility] [place] 31.0 /2012 [facility] HEMATOLOGY MCV 79.7 81.0 - 07/ [facility] [place] 99.0 /2012 [facility] HEMATOLOGY Hct 24.9 36.0 - 07/ [facility] [place] 48.0 /2012 [facility] HEMATOLOGY WBC 8.8 3.7 - 10.4 07 Normal [facility] HEMATOLOGY RDW 21.4 11.5 - 07/03 [facility] [place] 14.5 /2012 [facility] HEMATOLOGY MCHC 31.8 32.0 - 07/03 [facility] [place] 36.0 /2012 [facility] CHEMISTRY Troponin-I <0.02 0.00 - 0702 Normal [place] 0.40 /2012 [facility] CHEMISTRY Total CK 26 12 - 191 07/ Normal [facility] CHEMISTRY A/G Ratio 0.6 0.7 - 1.6 07/ LOW [facility] CHEMISTRY Bili Total 0.6 0.2 - 1.3 07/ Normal [facility] CHEMISTRY Bili Direct 0.3 0.0 - 0.3 07/ Normal [facility] CHEMISTRY Alk Phos 190 39 - 136 07/ HI [facility] CHEMISTRY Total Protein 5.2 6.4 - 8.4 07/ [facility] CHEMISTRY Globulin 3.2 2.0 - 4.0 07/ Normal [facility] CHEMISTRY Bili Indirect 0.3 0.0 - 1.0 07/ Normal [facility] CHEMISTRY AST 11 0 - 37 07/ Normal [facility] CHEMISTRY Albumin Lvl 2.0 3.5 - 5.0 07 [facility] CHEMISTRY ALT 19 0 - 65 07/ Normal [facility] CHEMISTRY Amylase Lvl 26 25 - 115 07/ Normal [facility] CHEMISTRY Lipase Lvl 49 73 - 393 07/ [facility] HEMATOLOGY MPV 8.3 7.4 - 10.4 07/ Normal [facility] HEMATOLOGY MCH 24.7 27.0 - 07/ [facility] [place] 31.0 /2012 [facility] HEMATOLOGY MCHC 32.6 32.0 - 07/02 Normal [place] 36.0 /2012 [facility] HEMATOLOGY RDW 20.1 11.5 - 07/ [facility] [place] 14.5 /2012 [facility] HEMATOLOGY Platelet 362 133 - 450 07/ Normal [facility] HEMATOLOGY MCV 75.7 81.0 - 07/02 [facility] [place] 99.0 /2012 [facility] HEMATOLOGY Hgb 8.8 12.0 - 07/02 [facility] [place] 16.0 /2012 Medical [place] HEMATOLOGY Hct 26.9 36.0 - 07/02 [facility] [place] 48.0 /2012 [facility] HEMATOLOGY RBC 3.56 4.20 - 07/02 [facility] [place] 5.40 /2012 Medical [place] HEMATOLOGY WBC 11.1 3.7 - 10.4 07/ HI Medical [place] HEMATOLOGY Lymphocytes # 2.4 1.0 - 5.5 07/ Normal [facility] HEMATOLOGY Hypochrom Slight None Seen 03/07 Normal [facility] (03/07/2013 07:43:59) [facility] HEMATOLOGY Microcyte 2+ None Seen 03/07 Psychiatric *ABN* Medical (03/07/2013 07:43:59) Center HEMATOLOGY Anisocyte 1+ None Seen 03/07 Psychiatric *ABN* Medical (03/07/2013 07:43:59) Center HEMATOLOGY Basophils # 0.1 0.0 - 0.2 03/07 Normal [facility] HEMATOLOGY Polychrom Slight None Seen 03/07 Normal [facility] (03/07/2013 07:43:59) [facility] HEMATOLOGY Basophils 0.8 0.0 - 1.0 03/07 [facility] HEMATOLOGY Eosinophils 1.3 0.0 - 4.0 03/07 [facility] HEMATOLOGY Segs-Bands # 7.6 1.5 - 8.1 03/07 [facility] HEMATOLOGY Monocytes 8.1 2.0 - 12.0 03/07 [facility] HEMATOLOGY Monocytes # 0.9 0.0 - 0.8 03/07 HI [facility] HEMATOLOGY Eosinophils # 0.1 0.0 - 0.5 03/07 [facility] HEMATOLOGY Target Cell Slight None Seen 03/07 Psychiatric * Medical (03/07/2013 07:43:59) [place] HEMATOLOGY Plt Morph Normal 03/07 [facility] (03/07/2013 07:43:59) [facility] HEMATOLOGY Lymphocytes 22.0 20.0 - 03/07 [facility] 40.0 [facility] HEMATOLOGY Segs 67.8 45.0 - 07 Normal [facility] 75.0 [facility] CHEMISTRY Lactic Acid 1.7 0.5 - 2.2 03/07 Normal [facility] Lvl [facility] CHEMISTRY Total CK 21 12 - 191 03/07 Normal [facility] CHEMISTRY Troponin-I <0.02 0.00 - 07 Normal [facility] 0.40 /2012 [facility] CHEMISTRY eGFR 104 03/07 NA <sup>6</sup>R esult Medical Comment: The Center eGFR is calculated using the CKD-EPI formula. In most young, healthy individuals the eGFR will be >90 mL/min/1.73m2 . The eGFR declines with age. An eGFR of 60-89 may be normal in some populations, particularly the elderly, for whom the CKD-EPI formula has not been extensively validated. Use of the eGFR is not recommended in the following populations:& lt;br/>
I ndividuals with unstable creatinine concentration s, including patients and those with serious co-morbid conditions.<b r/>
Patie nts with extremes in muscle mass or diet.

The data above are obtained from the National Kidney Disease Education Program (NKDEP) which additionally recommends that when the eGFR is used in patients with extremes of body mass index for purposes of drug dosing, the eGFR should be multiplied by the estimated BMI. CHEMISTRY CO2 27 24 - 32 03/07 Normal [facility] CHEMISTRY Potassium Lvl 3.6 3.5 - 5.1 03/07 Normal [facility] CHEMISTRY Chloride Lvl 99 95 - 109 03/07 [facility] CHEMISTRY Sodium Lvl 134 135 - 145 07 [facility] CHEMISTRY BUN 5 7 - 22 07 [facility] CHEMISTRY Creatinine 0.7 0.5 - 1.4 03/07 [facility] /2012 [facility] CHEMISTRY Glucose Lvl 233 70 - 99 03/07 HI <sup>9</sup>I nterpretive Medical Data: Adult Center reference range values reflect the clinical guidelines
of the [place] [employer]. CHEMISTRY Calcium Lvl 7.7 8.5 - 10.5 03/07 [facility] CHEMISTRY AGAP 11.6 10.0 - 07 Normal [facility] 20.0 /2012 [facility] CHEMISTRY Temp Art 37.0 07 NA [facility] CHEMISTRY pH Art 7.41 7.35 - 07 [facility] 7.45 /2012 [facility] CHEMISTRY pCO2 Art 34 35 - 45 07 [facility] CHEMISTRY O2 Sat Art 97.5 95.0 - 07 [facility] [place] 100.0 /2012 [facility] CHEMISTRY HCO3 Art 22 22 - 26 07 [facility] CHEMISTRY BE Art -2 -2-2 - 2 03/07 [facility] CHEMISTRY pO2 Art 96 80 - 100 03/07 [facility] CHEMISTRY Temp Mark 37.0 03/07 NA [facility] CHEMISTRY pO2 Mark 20 20 - 49 03/07 [facility] CHEMISTRY HCO3 Mark 21 22 - 26 03/07 LOW [facility] CHEMISTRY BE Mark -2 -2-2 - 2 03/07 [facility] CHEMISTRY O2 Sat Mark 36.2 40.0 - 03/07 LOW [place] 70.0 /2012 [facility] Center CHEMISTRY pCO2 Mark 29 38 - 52 03/07 [facility]OW [facility] CHEMISTRY pH Mrak 7.46 7.28 - 03/07 HI [facility] 7.42 /2012 Medical Center CHEMISTRY Lactic Acid 2.6 0.5 - 2.2 03/07 HI [facility] Lvl /2012 Medical Center CHEMISTRY Phosphorus 3.1 2.5 - 4.5 03/07 Normal [facility] CHEMISTRY Magnesium Lvl 1.6 1.8 - 2.4 03/07 [facility]OW [facility] CHEMISTRY Total CK 31 12 - 191 03/07 [facility] CHEMISTRY Troponin-I <0.02 0.00 - 03/07 Normal [facility] 0.40 /2012 Medical Center CHEMISTRY U Preg Negative Negative 03/06 Normal [facility] (03/06/2013 18:25:00) Medical Center URINALYSIS UA Amorph Occasional /HPF None Seen 03/06 ABN [facility] [place] *ABN* /2012 Medical (03/06/2013 18:25:00) Center URINALYSIS UA Mucus Few /LPF None Seen 03/06 Normal [facility] (03/06/2013 18:25:00) Medical Center URINALYSIS Micro? Performed 03/06 Normal [facility] (03/06/2013 18:25:00) Medical Center URINALYSIS UA Sq Epi Moderate /LPF Few 03/06 ABN [facility] *ABN* /2012 Medical (03/06/2013 18:25:00) Center URINALYSIS UA WBC 0-2 /HPF None Seen 03/06 Normal [facility] (03/06/2013 18:25:00) Medical Center URINALYSIS UA RBC None Seen 0 - 2 03/06 Normal [facility] (03/06/2013 18:25:00) Medical Center URINALYSIS UA Bacteria Few /HPF None Seen 03/06 Normal [facility] (03/06/2013 18:25:00) Medical Center URINALYSIS UA Bili Negative Negative 03/06 NA [facility] *NA* Medical (03/06/2013 18:25:00) Center URINALYSIS UA 0.2 0.1 - 1.0 03/06 Normal [facility] Urobilinogen /2012 Medical Center URINALYSIS UA Nitrite Negative Negative 03/06 Normal [facility] (03/06/2013 18:25:00) Medical Center URINALYSIS UA Leuk Est Trace Negative 03/06 ABN [facility] *ABN* Medical (03/06/2013 18:25:00) Center URINALYSIS UA Blood Negative Negative 03/06 Normal [facility] (03/06/2013 18:25:00) Medical Center URINALYSIS UA Ketones 40 mg/dL [facility]:25[facility] Center URINALYSIS UA Turbidity Clear Clear 03/06 Normal [facility] (03/06/2013 18:25:00) Medical Center URINALYSIS UA Color Yellow Yellow 03/06 NA [facility] *NA* Medical (03/06/2013 18:25:00) Center URINALYSIS UA Spec Grav 1.015 <=1.030 03/06 Normal [facility] Center URINALYSIS UA Protein Negative Negative 03/06 Normal [facility] (03/06/2013 18:25:00) Medical Center URINALYSIS UA Glucose 250 mg/dL [facility] Center URINALYSIS UA pH 7.5 5.0 - 8.0 03/06 Normal [facility] Medical Center BEDSIDE Comment1 Notify 12/07 NA [facility] GLUCOSE RN/MD /2012 Medical TESTING Center BEDSIDE Gluc POC 64 70 - 99 12/07 LOW <sup>3</sup>I [facility] Data: Center Upper Reportable Limit: 200 mg/dL. BEDSIDE Gluc POC 50 70 - 99 12/07 LOW <sup>4</sup>I [facility] Data: Center Upper Reportable Limit: 200 mg/dL. BEDSIDE Comment1 Notify 04 NA [facility] GLUCOSE RN/ /2012 Medical TESTING Center BEDSIDE Gluc POC 45 70 - 99 12/07 LOW <sup>5</sup>I [facility] GLUCOSE [employer] /2012 nterpretive Medical TESTING Data: Center Upper Reportable Limit: 200 mg/dL. BEDSIDE Comment1 Notify 12/07 NA [facility] GLUCOSE RN/ /2012 Medical TESTING Center CHEMISTRY eGFR 109 12/07 NA <sup>7</sup>R [facility] esult Medical Comment: The Center eGFR is calculated using the CKD-EPI formula. In most young, healthy individuals the eGFR will be >90 mL/min/1.73m2 . The eGFR declines with age. An eGFR of 60-89 may be normal in some populations, particularly the elderly, for whom the CKD-EPI formula has not been extensively validated. Use of the eGFR is not recommended in the following populations:& lt;br/>
I ndividuals with unstable creatinine concentration s, including patients and those with serious co-morbid conditions.<b r/>
Patie nts with extremes in muscle mass or diet.

The data above are obtained from the National Kidney Disease Education Program (NKDEP) which additionally recommends that when the eGFR is used in patients with extremes of body mass index for purposes of drug dosing, the eGFR should be multiplied by the estimated BMI. CHEMISTRY Calcium Lvl 8.3 8.5 - 10.5 12/07 LOW [facility] CHEMISTRY AGAP 12.8 10.0 - 12/07 [facility] 20.0 [facility] CHEMISTRY BUN 2 7 - 22 12/07 LOW [facility] CHEMISTRY Glucose Lvl 95 70 - 99 12/07 Normal <sup>10</sup> Interpretive Medical Data: Adult Center reference range values reflect the clinical guidelines
of the [place] [employer]. CHEMISTRY Potassium Lvl 3.8 3.5 - 5.1 12/07 Normal [facility] CHEMISTRY Creatinine 0.6 0.5 - 1.4 12/07 Normal [facility] Lvl /2012 [facility] CHEMISTRY Sodium Lvl 140 135 - 145 12/07 Normal [facility] CHEMISTRY Chloride Lvl 105 95 - 109 12/07 Normal [facility] CHEMISTRY CO2 26 24 - 32 12/07 Normal [facility] BEDSIDE Comment2 Verify 12/06 NA [facility] GLUCOSE w/Lab /2012 [facility] TESTING Center BEDSIDE Comment2 Verify 12/06 NA [facility] GLUCOSE w/Lab /2012 [facility] TESTING Center CHEMISTRY AGAP 13.5 10.0 - 04 Normal [facility] 20.0 /2012 [facility] CHEMISTRY Calcium Lvl 8.1 8.5 - 10.5 12/06 LOW [facility] CHEMISTRY CO2 28 24 - 32 12/06 Normal [facility] CHEMISTRY Chloride Lvl 101 95 - 109 12/06 Normal [facility] CHEMISTRY eGFR 104 12/06 NA <sup>8</sup>R esult Medical Comment: The Center eGFR is calculated using the CKD-EPI formula. In most young, healthy individuals the eGFR will be >90 mL/min/1.73m2 . The eGFR declines with age. An eGFR of 60-89 may be normal in some populations, particularly the elderly, for whom the CKD-EPI formula has not been extensively validated. Use of the eGFR is not recommended in the following populations:& lt;br/>
I ndividuals with unstable creatinine concentration s, including patients and those with serious co-morbid conditions.<b r/>
Patie nts with extremes in muscle mass or diet.

The data above are obtained from the National Kidney Disease Education Program (NKDEP) which additionally recommends that when the eGFR is used in patients with extremes of body mass index for purposes of drug dosing, the eGFR should be multiplied by the estimated BMI. CHEMISTRY Glucose Lvl 70 70 - 99 12/06 Normal <sup>11</sup> Interpretive Medical Data: Adult Center reference range values reflect the clinical guidelines
of the [place] [employer]. CHEMISTRY BUN 2 7 - 22 12/06 LOW [facility] CHEMISTRY Creatinine 0.7 0.5 - 1.4 12/06 Normal [facility] [place] [facility] CHEMISTRY Sodium Lvl 139 135 - 145 12/06 Normal [facility] CHEMISTRY Potassium Lvl 3.5 3.5 - 5.1 12/06 Normal [facility] CHEMISTRY Lipase Lvl 62 73 - 393 12/06 LOW [facility] CHEMISTRY Alk Phos 92 39 - 136 / Normal [facility]2012 [facility] CHEMISTRY Albumin Lvl 2.7 3.5 - 5.0 / LOW [facility]2012 [facility] CHEMISTRY Total Protein 5.8 6.4 - 8.4 / LOW [facility] CHEMISTRY Globulin 3.1 2.0 - 4.0 / Normal [facility] CHEMISTRY A/G Ratio 0.9 0.7 - 1.6 / Normal [facility] CHEMISTRY AST 74 0 - 37 / HI [facility] CHEMISTRY ALT 50 0 - 65 / Normal [facility]2012 [facility] CHEMISTRY Bili Indirect 0.1 0.0 - 1.0 12/06 Normal [facility]2012 [facility] CHEMISTRY Bili Total 0.2 0.2 - 1.3 12/06 Normal [facility]2012 [facility] CHEMISTRY Bili Direct 0.1 0.0 - 0.3 12/06 Normal [facility]2012 [facility] CHEMISTRY eGFR 109 12/05 NA <sup>9</sup>R esult Medical Comment: The Center eGFR is calculated using the CKD-EPI formula. In most young, healthy individuals the eGFR will be >90 mL/min/1.73m2 . The eGFR declines with age. An eGFR of 60-89 may be normal in some populations, particularly the elderly, for whom the CKD-EPI formula has not been extensively validated. Use of the eGFR is not recommended in the following populations:& lt;br/>
I ndividuals with unstable creatinine concentration s, including patients and those with serious co-morbid conditions.<b r/>
Patie nts with extremes in muscle mass or diet.

The data above are obtained from the National Kidney Disease Education Program (NKDEP) which additionally recommends that when the eGFR is used in patients with extremes of body mass index for purposes of drug dosing, the eGFR should be multiplied by the estimated BMI. CHEMISTRY Glucose Lvl 152 70 - 99 12/05 HI <sup>12</sup> Interpretive Medical Data: Adult Center reference range values reflect the clinical guidelines
of the [place] [employer]. CHEMISTRY Creatinine 0.6 0.5 - 1.4 04/01 Normal [place] Lvl /2012 [facility] CHEMISTRY BUN 1 7 - 22 04 LOW [facility] CHEMISTRY Chloride Lvl 102 95 - 109 12/05 Normal Medical [place] CHEMISTRY Potassium Lvl 3.3 3.5 - 5.1 12/05 [facility] Medical [place] CHEMISTRY Sodium Lvl 140 135 - 145 12/05 Normal Medical Center CHEMISTRY Calcium Lvl 7.9 8.5 - 10.5 12/05 [facility] CHEMISTRY CO2 29 24 - 32 04 Normal [facility] CHEMISTRY AGAP 12.3 10.0 - 12/05 Normal [place] 20.0 Medical [place] CHEMISTRY Ca Norm mgdL 4.84 4.65 - 12/03 Normal [place] . Medical [place] CHEMISTRY Ca Ion mgdL 4.84 4.65 - 12/03 Normal [place] 5. [facility] CHEMISTRY Ca Ion 1.21 1.16 - 12/03 Normal [place] 1. Medical Center CHEMISTRY Ca Norm 1.21 1.16 - 12/03 Normal [place] 1. Medical Center CHEMISTRY Magnesium Lvl 1.8 1.8 - 2.4 12/03 Normal [facility] CHEMISTRY Phosphorus 3.4 2.5 - 4.5 12/03 Normal [facility] HEMATOLOGY Lymphocytes # 1.8 1.0 - 5.5 12/03 Normal [facility] HEMATOLOGY Lymphocytes 23.6 20.0 - 12/03 Normal [place] 40.0 [facility] HEMATOLOGY Eosinophils 2.9 0.0 - 4.0 12/03 Normal [facility] HEMATOLOGY Monocytes 9.1 2.0 - 12.0 12/03 Normal [facility] HEMATOLOGY Basophils 0.6 0.0 - 1.0 12/03 Normal [facility] HEMATOLOGY Segs-Bands # 5.0 1.5 - 8.1 12/03 Normal [facility] HEMATOLOGY Segs 63.8 45.0 - 12/03 Normal [place] 75.0 /2012 Medical Center HEMATOLOGY Monocytes # 0.7 0.0 - 0.8 12/03 Normal [facility] HEMATOLOGY Eosinophils # 0.2 0.0 - 0.5 12/03 Normal [facility] HEMATOLOGY Microcyte 1+ None Seen 12/03 ABN [facility] *ABN* /2012 Medical (12/03/2012 01:02:00) Center HEMATOLOGY WBC 7.8 3.7 - 10.4 12/03 Normal [facility] HEMATOLOGY Hct 27.8 36.0 - 12/03 LOW [facility] 48.0 /2012 [facility] HEMATOLOGY MPV 8.5 7.4 - 10.4 12/03 Normal [facility] HEMATOLOGY MCHC 32.4 32.0 - 12/03 Normal [facility] 36.0 /2012 [facility] HEMATOLOGY RDW 18.9 11.5 - 12/03 HI [facility] 14.5 /2012 [facility] HEMATOLOGY MCH 24.6 27.0 - 12/03 LOW [facility] 31.0 /2012 [facility] HEMATOLOGY RBC 3.66 4.20 - 12/03 LOW [facility] 5.40 /2012 [facility] HEMATOLOGY MCV 75.9 81.0 - 12/03 LOW [facility] 99.0 /2012 [facility] HEMATOLOGY Platelet 224 133 - 450 12/03 Normal [facility] HEMATOLOGY Hgb 9.0 12.0 - 12/03 LOW [facility] 16.0 /2012 [facility] Microbiolog Culture: 12/02 [facility] y Blood /2012 [facility] Microbiolog Culture: MRSA 12/02 [facility] y /2012 [facility] Microbiolog Culture: 12/02 [facility] y Resistant [facility] Center Screen CHEMISTRY Ketone 1.42 <=0.27 12/02 [facility] Quantitative [facility] URINALYSIS UA WBC 1 0 - 5 12/02 Normal [facility] URINALYSIS UA RBC <1 0 - 2 12/02 Normal [facility] URINALYSIS UA 0.1 - 1.0 12/02 [facility] Urobilinogen /2012 [facility] URINALYSIS UA Sq Epi Moderate /LPF Few 12/02 Psychiatric *ABN* Medical (12/02/2012 04:02:55) Center URINALYSIS UA Leuk Est Negative Negative 12/02 Normal [facility] (12/02/2012 04:02:55) Medical Center URINALYSIS UA Nitrite Negative Negative 12/02 Normal [facility] (12/02/2012 04:02:55) Medical Center URINALYSIS UA Mucus Few /LPF None Seen 12/02 [facility] *NA* Medical (12/02/2012 04:02:55) Center URINALYSIS UA Ketones 40 mg/dL Negative 12/02 ABN [facility] *ABN* Medical (12/02/2012 04:02:55) Center URINALYSIS UA Blood Negative Negative 12/02 Normal [facility] (12/02/2012 04:02:55) Medical Center URINALYSIS UA Glucose >=1000 mg/dL Negative 12/02 ABN [facility] Medical (12/02/2012 04:02:55) Center URINALYSIS UA Bili Negative Negative 12/02 NA [facility] *NA* Medical (12/02/2012 04:02:55) Center URINALYSIS UA Protein Negative mg/dL Negative 12/02 Normal [facility] (12/02/2012 04:02:55) Medical Center URINALYSIS UA Turbidity Clear Clear 12/02 Normal [facility] (12/02/2012 04:02:55) Medical Center URINALYSIS UA pH 5.5 5.0 - 8.0 12/02 Normal [facility] URINALYSIS UA Spec Grav 1.010 <=1.030 12/02 Normal [facility] URINALYSIS UA Color Yellow Yellow 12/02 NA [facility] *NA* Medical (12/02/2012 04:02:55) Center HEMATOLOGY MPV 8.9 7.4 - 10.4 12/02 Normal [facility] HEMATOLOGY Hct 27.9 36.0 - 12/02 LOW [place] 48.0 /2012 [facility] HEMATOLOGY MCV 76.1 81.0 - 12/02 LOW [facility] 99.0 /2012 [facility] HEMATOLOGY MCH 25.2 27.0 - 12/02 LOW [place] 31.0 /2012 [facility] HEMATOLOGY MCHC 33.2 32.0 - 12/02 Normal [facility] 36.0 [facility] HEMATOLOGY RDW 19.3 11.5 - 12/02 HI [place] 14.5 [facility] HEMATOLOGY Platelet 224 133 - 450 12/02 Normal [facility] HEMATOLOGY WBC 8.6 3.7 - 10.4 12/02 Normal [facility] HEMATOLOGY Hgb 9.3 12.0 - 12/02 LOW [place] 16.0 [facility] HEMATOLOGY RBC 3.67 4.20 - 12/02 LOW [facility] [place] 5.40 /2012 [facility] HEMATOLOGY Segs-Bands # 6.4 1.5 - 8.1 12/02 Normal [facility] HEMATOLOGY Lymphocytes # 1.5 1.0 - 5.5 12/02 Normal [facility] HEMATOLOGY Eosinophils 0.6 0.0 - 4.0 12/02 Normal [facility] HEMATOLOGY Basophils 0.7 0.0 - 1.0 12/02 Normal [facility] HEMATOLOGY Lymphocytes 17.3 20.0 - 12/02 LOW [place] 40.0 [facility] HEMATOLOGY Monocytes # 0.7 0.0 - 0.8 12/02 Normal [facility] HEMATOLOGY Microcyte 1+ None Seen 12/02 ABN [place] *ABN* /2012 Medical (12/02/2012 04:02:51) [place] HEMATOLOGY Eosinophils # 0.1 0.0 - 0.5 12/02 Normal [facility] HEMATOLOGY Basophils # 0.1 0.0 - 0.2 12/02 Normal [facility] HEMATOLOGY Segs 73.8 45.0 - 12/02 Normal [place] 75.0 [facility] HEMATOLOGY Monocytes 7.6 2.0 - 12.0 12/02 Normal [facility] Microbiolog Culture: 12/02 [facility] y [facility] CHEMISTRY POC A Glu 305 70 - 99 12/02 HI [facility] CHEMISTRY POC A Hct 29.0 36.0 - 12/02 LOW [facility] 48.0 [facility] CHEMISTRY POC A O2 Sat 97.0 95.0 - 12/02 Normal [place] 100.0 [facility] CHEMISTRY POC A K 3.4 3.5 - 5.1 12/02 LOW [facility] CHEMISTRY POC A Na 130 135 - 145 12/02 LOW [facility] CHEMISTRY POC A PCO2 38 35 - 45 12/02 Normal [facility] CHEMISTRY POC A BE 2 -2-2 - 2 12/02 Normal [facility] CHEMISTRY POC A HCO3 26 22 - 26 12/02 Normal [facility] CHEMISTRY POC A Source ART 12/02 NA [facility] CHEMISTRY POC A PO2 89 80 - 100 12/02 Normal [facility] CHEMISTRY POC A pH 7.44 7.35 - 12/02 Normal [facility] [place] 7.45 [facility] CHEMISTRY POC A Temp 37.0 12/02 NA [facility] CHEMISTRY POC A Ca Ion 1.12 1.16 - 12/02 LOW [place] 1.30 [facility] CHEMISTRY POC A LA 0.8 0.5 - 2.2 12/02 Normal [facility] CHEMISTRY Magnesium Lvl 1.9 1.8 - 2.4 12/02 Normal Medical Center CHEMISTRY Phosphorus 2.7 2.5 - 4.5 12/02 Normal [facility] CHEMISTRY Ca Norm mgdL 4.36 4.65 - 12/02 LOW [place] 5. [facility] CHEMISTRY Ca Ion 1.14 1.16 - 12/02 LOW [place] 1.30 [facility] CHEMISTRY Ca Ion mgdL 4.56 4.65 - 12/02 LOW [place] 5. [facility] CHEMISTRY Ca Norm 1.09 1.16 - 12/02 LOW [place] 1. Medical Center HEMATOLOGY Platelet 223 133 - 450 12/02 Normal [facility] HEMATOLOGY MPV 9.2 7.4 - 10.4 12/02 Normal [facility] HEMATOLOGY MCHC 32.3 32.0 - 12/02 Normal [place] 36.0 [facility] HEMATOLOGY RDW 19.2 11.5 - 12/02 HI [place] 14.5 Medical Center HEMATOLOGY WBC 7.6 3.7 - 10.4 12/02 Normal [facility] HEMATOLOGY Hgb 9.2 12.0 - 12/02 LOW [place] 16.0 [facility] HEMATOLOGY Hct 28.6 36.0 - 12/02 LOW [place] 48.0 /2012 Medical Center HEMATOLOGY MCV 76.3 81.0 - 12/02 LOW [place] 99.0 /2012 Medical Center HEMATOLOGY MCH 24.6 27.0 - 12/02 LOW [place] 31.0 [facility] HEMATOLOGY RBC 3.74 4.20 - 12/02 LOW [place] 5.40 [facility] HEMATOLOGY Microcyte 1+ None Seen 12/02 ABN [place] *ABN* /2012 Medical (12/02/2012 03:00:00) Center HEMATOLOGY Basophils # 0.1 0.0 - 0.2 12/02 Normal Medical Center HEMATOLOGY Monocytes # 0.6 0.0 - 0.8 12/02 Normal [facility] HEMATOLOGY Lymphocytes # 1.9 1.0 - 5.5 12/02 Normal [facility] HEMATOLOGY Segs-Bands # 5.0 1.5 - 8.1 12/02 Normal [facility] HEMATOLOGY Segs 65.5 45.0 - 12/02 Normal [place] 75.0 /2012 [facility] HEMATOLOGY Lymphocytes 25.0 20.0 - 12/02 Normal [place] 40.0 [facility] HEMATOLOGY Monocytes 8.4 2.0 - 12.0 12/02 Normal [facility] HEMATOLOGY Eosinophils 0.4 0.0 - 4.0 12/02 Normal [facility] HEMATOLOGY Basophils 0.7 0.0 - 1.0 12/02 Normal [facility] CHEMISTRY Magnesium Lvl 2.0 1.8 - 2.4 12/01 Normal [facility] CHEMISTRY Ca Norm mgdL 4.48 4.65 - 12/01 LOW [facility] 5. [facility] CHEMISTRY Ca Ion mgdL 4.68 4.65 - 12/01 Normal [facility] 5. [facility] CHEMISTRY Ca Ion 1.17 1.16 - 12/01 Normal [facility] 1. [facility] CHEMISTRY Ca Norm 1.12 1.16 - 12/01 LOW [facility] 1. [facility] CHEMISTRY Phosphorus 2.7 2.5 - 4.5 12/01 Normal [facility] URINALYSIS UA 0.1 - 1.0 11/30 NA [facility] Urobilinogen [facility] URINALYSIS UA Mucus Few /LPF None Seen 11/30 NA [facility] *NA* /2012 Medical (11/30/2012 17:41:33) Center URINALYSIS UA WBC <1 0 - 5 11/30 Normal [facility] URINALYSIS UA Sq Epi Moderate /LPF Few 11/30 ABN [facility] *ABN* Medical (11/30/2012 17:41:33) Center URINALYSIS UA Protein Negative mg/dL Negative 11/30 Normal [facility] (11/30/2012 17:41:33) [facility] URINALYSIS UA pH 5.0 5.0 - 8.0 11/30 Normal [facility] URINALYSIS UA Spec Grav 1.004 <=1.030 11/30 Normal Medical Center URINALYSIS UA Turbidity Clear Clear 11/30 Normal [facility] (11/30/2012 17:41:33) Medical Center URINALYSIS UA Color Light Yellow Yellow 11/30 NA [facility] *NA* Medical (11/30/2012 17:41:33) Center URINALYSIS UA Leuk Est Negative Negative 11/30 Normal [facility] (11/30/2012 17:41:33) Medical Center URINALYSIS UA Nitrite Negative Negative 11/30 Normal [facility] (11/30/2012 17:41:33) Medical Center URINALYSIS UA Blood Negative Negative 11/30 Normal [facility] (11/30/2012 17:41:33) Medical Center URINALYSIS UA Bili Negative Negative 11/30 NA [facility] *NA* Medical (11/30/2012 17:41:33) Center URINALYSIS UA Ketones 10 mg/dL Negative 11/30 ABN [facility] *ABN* Medical (11/30/2012 17:41:33) Center URINALYSIS UA Glucose Negative mg/dL Negative 11/30 NA [facility] *NA* Medical (11/30/2012 17:41:33) Center CHEMISTRY Ketone 1.65 <=0.27 11/30 HI [facility] Medical Center HEMATOLOGY PT 14.1 12.0 - 11/30 Normal [facility] 14.7 Medical Center HEMATOLOGY PTT 28.1 22.9 - 11/30 Normal <sup>18</sup> [facility] 35.8 Interpretive Medical Data: Heparin Center Therapeutic Range: 57 - 92 Seconds HEMATOLOGY INR 1.07 0.85 - 11/30 Normal <sup>16</sup> [facility] 1. Interpretive Medical Data: Center RECOMMENDED RANGES FOR PROTIME INR:
2.0-3.0 for most medical and surgical thromboemboli c states.
2.5-3.5 for artificial heart valves and recurrent embolism.<br/ >
INR SHOULD BE USED ONLY FOR PATIENTS ON STABLE ANTICOAGULANT THERAPY. CHEMISTRY U Potassium 31.2 11/30 NA <sup>14</sup> Interpretive Medical Data: No Center established reference ranges. CHEMISTRY U Sodium 87 11/30 NA <sup>13</sup> Interpretive Medical Data: No Center established reference ranges. CHEMISTRY U Chloride 134 11/30 NA [facility] CHEMISTRY Bili Total 0.4 0.2 - 1.3 11/30 Normal [facility] CHEMISTRY Total Protein 6.3 6.4 - 8.4 11/30 LOW [facility] CHEMISTRY Albumin Lvl 2.9 3.5 - 5.0 11/30 LOW [facility] CHEMISTRY Alk Phos 127 39 - 136 11/30 Normal [facility] CHEMISTRY Bili Direct 0.2 0.0 - 0.3 11/30 Normal [facility] CHEMISTRY AST 22 0 - 37 11/30 Normal [facility] CHEMISTRY ALT 20 0 - 65 11/30 Normal [facility] CHEMISTRY A/G Ratio 0.9 0.7 - 1.6 11/30 Normal [facility] CHEMISTRY Bili Indirect 0.2 0.0 - 1.0 11/30 Normal [facility] CHEMISTRY Globulin 3.4 2.0 - 4.0 11/30 Normal [facility] HEMATOLOGY Basophils # 0.1 0.0 - 0.2 11/30 Normal [facility] HEMATOLOGY PT 13.9 12.0 - 11/30 Normal [facility] 14.7 [facility] HEMATOLOGY PTT 26.5 22.9 - 11/30 Normal <sup>19</sup> [facility] 35.8 /2012 Interpretive Medical Data: Heparin Center Therapeutic Range: 57 - 92 Seconds HEMATOLOGY INR 1.05 0.85 - 11/30 Normal <sup>17</sup> [facility] 1. Interpretive Medical Data: Center RECOMMENDED RANGES FOR PROTIME INR:
2.0-3.0 for most medical and surgical thromboemboli c states.
2.5-3.5 for artificial heart valves and recurrent embolism.<br/ >
INR SHOULD BE USED ONLY FOR PATIENTS ON STABLE ANTICOAGULANT THERAPY. CHEMISTRY POC V Temp 37.0 11/29 NA [facility] CHEMISTRY POC V Ion Ca 1.16 1.16 - 11/29 Normal [facility] 1. [facility] CHEMISTRY POC V K 3.5 3.5 - 5.1 11/29 Normal [facility] CHEMISTRY POC V Na 139 135 - 145 11/29 Normal [facility] CHEMISTRY POC V LA 0.8 0.5 - 2.2 11/29 Normal [facility] CHEMISTRY POC V Source MARK 11/29 NA Medical Center CHEMISTRY POC V O2 Sat 86.0 40.0 - 11/29 HI [place] 70.0 Medical Center CHEMISTRY POC V Glu 144 70 - 99 11/29 HI [facility] CHEMISTRY POC V BE -4 -2-2 - 2 11/29 LOW [facility] CHEMISTRY POC V pH 7.42 7.28 - 11/29 Normal [place] 7.42 Medical Center CHEMISTRY POC V PCO2 31 38 - 52 11/29 LOW [facility] CHEMISTRY POC V PO2 51 20 - 49 11/29 HI Medical Center CHEMISTRY POC V HCO3 20 22 - 26 11/29 LOW [facility] CHEMISTRY Troponin-I 0.05 0.00 - 11/29 Normal [place] 0.40 Medical Center CHEMISTRY Total CK 46 12 - 191 11/29 Normal Medical Center CHEMISTRY Troponin-T <0.010 0.000 - 11/29 Normal [place] 0.100 Medical Center CHEMISTRY Ketone 4.63 <=0.27 11/29 HI [facility] CHEMISTRY POC A Ca Ion 1.17 1.16 - 11/29 Normal [place] 1.30 Medical Center CHEMISTRY POC A K 3.6 3.5 - 5.1 11/29 Normal Medical Center CHEMISTRY POC A Na 137 135 - 145 11/29 Normal Medical [facility] CHEMISTRY POC A Glu 327 70 - 99 11/29 HI [facility] CHEMISTRY POC A LA 1.3 0.5 - 2.2 11/29 Normal Medical [facility] CHEMISTRY POC A Temp 37.0 11/29 NA Medical Center CHEMISTRY POC A Source ART 11/29 NA Medical Center CHEMISTRY POC A O2 Sat 98.0 95.0 - 11/29 Normal [place] 100.0 Medical Center CHEMISTRY POC A BE -11 -2-2 - 2 11/29 LOW [facility] CHEMISTRY POC A HCO3 14 - 26 11/29 LOW Medical [facility] CHEMISTRY POC A PCO2 26 35 - 45 11/29 CRIT [facility] CHEMISTRY POC A PO2 115 80 - 100 11/29 HI [facility] CHEMISTRY POC A pH 7.33 7.35 - 11/29 [facility] BACTERIAL - MRSA by PCR Positive 1, 2 11/29 ABN <sup>1</sup>R [facility] SEROLOGY *ABN* /2012 esult Medical (11/29/2012 14:30:36) Comment: Center "Significant Findings called to Eun Parekh at 1328 11/30/2012 by ss.Read Back OK."
<sup >2</sup>Inter pretive Data: Interpretive Data: The [employer] Light[employer] MRSA assay is a qualitative test for the direct detection of nasal colonization with methicillin-r esistant Staphylococcu s aureus (MRSA) to aid in the prevention and control of MRSA infections in healthcare settings. A positive result does not indicate an infection or require treatment. A negative result does not exclude colonization or infection.

The polymerase chain reaction (PCR) assay detects a proprietary sequence indicative of the integration of the SCCmec cassette into the Staphylococcu s aureus chromosome, indicating the presence of MRSA DNA. The assay utilizes FDA cleared IVD reagents. Performance characteristi cs have been verified by the Molecular Diagnostic Laboratory within the [facility]. The Molecular Diagnostic Laboratory is authorized under the Clinical Laboratory Improvement Amendment of 1988 (CLIA-88) to perform high complexity testing. CHEMISTRY Temp Art 37.0 11/29 NA [facility] CHEMISTRY O2 Sat Art 96.6 95.0 - 11/29 Normal [facility] 100.0 [facility] CHEMISTRY pO2 Art 96 80 - 100 11/29 Normal [facility] CHEMISTRY pCO2 Art 25 35 - 45 11/29 CRIT <sup>15</sup> Result Medical Comment: Center Critical Result(s) called to jose rodriguez at _11/29/2012 12:25:56 CDT byandrey_. Read back OK. CHEMISTRY BE Art -12 -2-2 - 2 11/29 LOW [facility] CHEMISTRY HCO3 Art 12 22 - 26 11/29 LOW [facility] CHEMISTRY pH Art 7.30 7.35 - 11/29 [facility] CHEMISTRY A/G Ratio 0.8 0.7 - 1.6 11/29 Normal [facility] CHEMISTRY Globulin 4.0 2.0 - 4.0 11/29 Normal [facility] CHEMISTRY AST 17 0 - 37 11/29 Normal [facility] CHEMISTRY Bili Total 0.8 0.2 - 1.3 11/29 Normal [facility] CHEMISTRY B/C Ratio 14 6 - 25 11/29 Normal [facility] CHEMISTRY Total Protein 7.4 6.4 - 8.4 11/29 Normal [facility] CHEMISTRY ALT 22 0 - 65 11/29 Normal Medical Center CHEMISTRY Albumin Lvl 3.4 3.5 - 5.0 11/29 LOW [facility] CHEMISTRY Alk Phos 126 39 - 136 11/29 Normal [facility] CHEMISTRY Troponin-I <0.02 0.00 - 11/29 Normal [facility] 0.40 [facility] CHEMISTRY Lipase Lvl 70 73 - 393 11/29 LOW [facility] CHEMISTRY B/C Ratio 10 6 - 25 11/29 Normal [facility] HEMATOLOGY Hypochrom Slight None Seen 11/29 Normal [facility] (11/28/2012 21:00:20) Medical Center HEMATOLOGY Polychrom Slight None Seen 11/29 Normal [facility] (11/28/2012 21:00:20) Medical Center HEMATOLOGY Anisocyte 1+ None Seen 11/29 Psychiatric *ABN* Medical (11/28/2012 21:00:20) Center HEMATOLOGY Large Plt Slight None Seen 11/29 ABN [facility] *ABN* Medical (11/28/2012 21:00:20) Center HEMATOLOGY Eosinophils # 0.2 0.0 - 0.5 11/29 Normal Medical Center CHEMISTRY U Preg Negative Negative 11/29 Normal [facility] (11/28/2012 20:55:00) Medical Center URINALYSIS UA Blood Negative Negative 11/29 Normal [facility] (11/28/2012 20:55:00) Medical Center URINALYSIS UA Bili Small 6 Negative 11/29 ABN <sup>6</sup>R [facility] *ABN* esult Medical (11/28/2012 20:55:00) Comment: Center Interpret positive bilirubin results with caution. Confirmatory testing
n ot possible due to the unavailabilit y of reagent. Correlation with
seru m chemistry results recommended. URINALYSIS UA Protein Negative Negative 11/29 Normal [facility] (11/28/2012 20:55:00) [facility] URINALYSIS Micro? Not Indicated 11/29 Normal [facility] (11/28/2012 20:55:00) Medical Center URINALYSIS UA Glucose Negative Negative 11/29 Normal [facility] (11/28/2012 20:55:00) [facility] URINALYSIS UA Ketones 40 mg/dL Negative 11/29 ABN [facility] *ABN* [facility] (11/28/2012 20:55:00) Center URINALYSIS UA Leuk Est Negative Negative 11/29 Normal [facility] (11/28/2012 20:55:00) [facility] URINALYSIS UA 0.2 0.1 - 1.0 11/29 Normal [facility] Urobilinogen [facility] URINALYSIS UA Nitrite Negative Negative 11/29 Normal [facility] (11/28/2012 20:55:00) [facility] URINALYSIS UA Spec Grav 1.010 <=1.030 11/29 Normal [facility] URINALYSIS UA pH 6.0 5.0 - 8.0 11/29 Normal [facility] URINALYSIS UA Color Yellow Yellow 11/29 NA [facility] *NA* [facility] (11/28/2012 20:55:00) Center URINALYSIS UA Turbidity Clear Clear 11/29 Normal [facility] (11/28/2012 20:55:00) Medical Center BEDSIDE Comment1 Notify 11/17 NA [facility] GLUCOSE MARTÍNEZ/ Medical TESTING Center BEDSIDE Gluc POC 219 70 - 99 11/17 HI <sup>1</sup>I [facility] GLUCOSE [facility] nterpretive Medical TESTING Data: Center Upper Reportable Limit: 200 mg/dL. BEDSIDE Gluc POC 255 70 - 99 11/17 HI <sup>2</sup>I [facility] GLUCOSE [facility] nterpretive Medical TESTING Data: [place] Upper Reportable Limit: 200 mg/dL. BEDSIDE Comment1 Notify 11/17 NA [facility] GLUCOSE [facility]/ [facility] CHEMISTRY Troponin-T <0.010 0.000 - 11/17 Normal [facility] 0.100 /2012 [facility] CHEMISTRY Troponin-I <0.02 0.00 - 11/17 Normal [facility] 0.40 /2012 [facility] CHEMISTRY Total CK 52 12 - 191 11/17 Normal [facility] CHEMISTRY eGFR 109 11/17 NA <sup>4</sup>R esult Medical Comment: The Center eGFR is calculated using the CKD-EPI formula. In most young, healthy individuals the eGFR will be >90 mL/min/1.73m2 . The eGFR declines with age. An eGFR of 60-89 may be normal in some populations, particularly the elderly, for whom the CKD-EPI formula has not been extensively validated. Use of the eGFR is not recommended in the following populations:& lt;br/>
I ndividuals with unstable creatinine concentration s, including patients and those with serious co-morbid conditions.<b r/>
Patie nts with extremes in muscle mass or diet.

The data above are obtained from the National Kidney Disease Education Program (NKDEP) which additionally recommends that when the eGFR is used in patients with extremes of body mass index for purposes of drug dosing, the eGFR should be multiplied by the estimated BMI. CHEMISTRY Calcium Lvl 7.7 8.5 - 10.5 11/17 [facility] CHEMISTRY AGAP 16.2 10.0 - 11/17 [facility] 20.0 [facility] CHEMISTRY Chloride Lvl 100 95 - 109 11/17 [facility] CHEMISTRY Potassium Lvl 4.2 3.5 - 5.1 11/17 Normal [facility] CHEMISTRY Sodium Lvl 134 135 - 145 11/17 [facility] CHEMISTRY CO2 22 24 - 32 11/17 [facility] CHEMISTRY Creatinine 0.6 0.5 - 1.4 11/17 Normal [facility] /2012 [facility] CHEMISTRY BUN 4 7 - 22 11/17 [facility] CHEMISTRY Glucose Lvl 237 70 - 99 11/17 HI <sup>6</sup>I nterpretive Medical Data: [facility] reference range values reflect the clinical guidelines
of the [place] [employer]. CHEMISTRY Magnesium Lvl 1.4 1.8 - 2.4 11/17 LOW [facility] CHEMISTRY Phosphorus 3.4 2.5 - 4.5 11/17 Normal [facility] HEMATOLOGY Segs 60.3 45.0 - 11/17 Normal [facility] 75.0 [facility] HEMATOLOGY Monocytes 9.0 2.0 - 12.0 11/17 Normal [facility] HEMATOLOGY Lymphocytes 27.8 20.0 - 11/17 Normal [place] 40.0 [facility] HEMATOLOGY Eosinophils 2.1 0.0 - 4.0 11/17 Normal [facility] HEMATOLOGY Lymphocytes # 2.3 1.0 - 5.5 11/17 Normal [facility] HEMATOLOGY Eosinophils # 0.2 0.0 - 0.5 11/17 Normal [facility] HEMATOLOGY Basophils 0.8 0.0 - 1.0 11/17 Normal [facility] HEMATOLOGY Segs-Bands # 5.1 1.5 - 8.1 11/17 Normal [facility] HEMATOLOGY Basophils # 0.1 0.0 - 0.2 11/17 Normal [facility] HEMATOLOGY Monocytes # 0.8 0.0 - 0.8 11/17 Normal [facility] HEMATOLOGY Microcyte 1+ None Seen 11/17 Psychiatric *ABN* /2012 Medical (11/17/2012 04:33:00) [place] HEMATOLOGY INR 1.09 0.85 - 11/17 Normal <sup>8</sup>I [facility] 1.17 nterpretive Medical Data: Center RECOMMENDED RANGES FOR PROTIME INR:
2.0-3.0 for most medical and surgical thromboemboli c states.
2.5-3.5 for artificial heart valves and recurrent embolism.<br/ >
INR SHOULD BE USED ONLY FOR PATIENTS ON STABLE ANTICOAGULANT THERAPY. HEMATOLOGY PT 14.3 12.0 - 11/17 Normal [facility] 14.7 [facility] HEMATOLOGY PTT 31.8 22.9 - 11/17 Normal <sup>9</sup>I [facility] 35.8 /2012 nterpretive Medical Data: [facility] Therapeutic Range: 57 - 92 [facility] HEMATOLOGY Platelet 177 133 - 450 11/17 Normal [facility] HEMATOLOGY MPV 9.5 7.4 - 10.4 11/17 Normal [facility] HEMATOLOGY MCH 24.5 27.0 - 03 LOW [place] 31.0 /2012 [facility] HEMATOLOGY RDW 18.9 11.5 - 03 HI [place] 14.5 /2012 [facility] HEMATOLOGY MCHC 32.3 32.0 - 03 Normal [place] 36.0 /2012 [facility] HEMATOLOGY MCV 75.9 81.0 - 03 LOW [place] 99.0 /2012 [facility] Center HEMATOLOGY RBC 3.67 4.20 - 03 LOW [place] 5.40 /2012 [facility] HEMATOLOGY WBC 8.4 3.7 - 10.4 11/17 Normal [facility] HEMATOLOGY Hct 27.9 36.0 - 03 LOW [place] 48.0 /2012 [facility] HEMATOLOGY Hgb 9.0 12.0 - 03 LOW [place] 16.0 /2012 [facility] Center CHEMISTRY Troponin-T <0.010 0.000 - 11/17 Normal [facility] 0.100 [facility] CHEMISTRY Troponin-I <0.02 0.00 - 11/17 Normal [facility] 0.40 [facility] CHEMISTRY Total CK 76 12 - 191 11/17 Normal [facility] CHEMISTRY CK MB Index 0.8 0.0 - 2.5 11/17 Normal [facility] CHEMISTRY CK MB 0.6 0.5 - 3.6 11/17 Normal [facility] BEDSIDE Gluc POC 305 70 - 99 11/17 HI <sup>3</sup>I [facility] GLUCOSE [place] /2012 nterpretive Medical TESTING Data: Center Upper Reportable Limit: 200 mg/dL. BEDSIDE Comment1 Notify 11/17 NA [facility] GLUCOSE RN/MD /2012 [facility] CHEMISTRY Magnesium Lvl 1.4 1.8 - 2.4 11/16 LOW [facility] CHEMISTRY Total CK 27 12 - 191 11/16 Normal [facility] CHEMISTRY Troponin-T <0.010 0.000 - 11/16 Normal [place] 0.100 [facility] Center CHEMISTRY Troponin-I <0.02 0.00 - 11/16 Normal [place] 0.40 [facility] Center CHEMISTRY B/C Ratio 6 6 - 25 11/16 Normal [facility] CHEMISTRY A/G Ratio 1.0 0.7 - 1.6 11/16 Normal [facility] CHEMISTRY AGAP 18.6 10.0 - 11/16 Normal [facility] 20.0 [facility] CHEMISTRY Globulin 3.5 2.0 - 4.0 11/16 Normal [facility] CHEMISTRY eGFR 67 11/16 NA <sup>5</sup>R esult Medical Comment: The Center eGFR is calculated using the CKD-EPI formula. In most young, healthy individuals the eGFR will be >90 mL/min/1.73m2 . The eGFR declines with age. An eGFR of 60-89 may be normal in some populations, particularly the elderly, for whom the CKD-EPI formula has not been extensively validated. Use of the eGFR is not recommended in the following populations:& lt;br/>
I ndividuals with unstable creatinine concentration s, including patients and those with serious co-morbid conditions.<b r/>
Patie nts with extremes in muscle mass or diet.

The data above are obtained from the National Kidney Disease Education Program (NKDEP) which additionally recommends that when the eGFR is used in patients with extremes of body mass index for purposes of drug dosing, the eGFR should be multiplied by the estimated BMI. CHEMISTRY Albumin Lvl 3.4 3.5 - 5.0 11/16 LOW [facility] CHEMISTRY Alk Phos 88 39 - 136 11/16 Normal [facility] CHEMISTRY Glucose Lvl 256 70 - 99 11/16 HI <sup>7</sup>I nterpretive Medical Data: Adult Center reference range values reflect the clinical guidelines
of the [place] [employer]. CHEMISTRY BUN 6 7 - 22 11/16 LOW [facility] CHEMISTRY Sodium Lvl 136 135 - 145 11/16 Normal [facility] CHEMISTRY Chloride Lvl 99 95 - 109 11/16 Normal [facility] CHEMISTRY Creatinine 1.0 0.5 - 1.4 11/16 Normal [facility] CHEMISTRY Potassium Lvl 3.6 3.5 - 5.1 11/16 Normal [facility] CHEMISTRY CO2 22 24 - 32 11/16 [facility] CHEMISTRY Calcium Lvl 8.8 8.5 - 10.5 11/16 Normal [facility] CHEMISTRY Bili Total 0.6 0.2 - 1.3 11/16 Normal [facility] CHEMISTRY Total Protein 6.9 6.4 - 8.4 11/16 Normal [facility] CHEMISTRY AST 52 0 - 37 11/16 HI [facility] CHEMISTRY ALT 52 0 - 65 11/16 Normal [facility] CHEMISTRY Phosphorus 1.6 2.5 - 4.5 11/16 LOW [facility] HEMATOLOGY Lymphocytes 16.8 20.0 - 11/16 LOW [place] 40.0 [facility] HEMATOLOGY Segs 72.3 45.0 - 03 Normal [facility] 75.0 [facility] HEMATOLOGY Large Plt Slight None Seen 11/16 [facility] Medical (11/16/2012 13:17:00) Center HEMATOLOGY Elliptocyte Slight None Seen 11/16 [facility] Medical (11/16/2012 13:17:00) Center HEMATOLOGY Polychrom Slight None Seen 11/16 Normal [facility] (11/16/2012 13:17:00) [facility] HEMATOLOGY Microcyte 1+ None Seen 11/16 [facility] Medical (11/16/2012 13:17:00) Center HEMATOLOGY Basophils # 0.1 0.0 - 0.2 11/16 Normal [facility] HEMATOLOGY Hypochrom Slight None Seen 11/16 Normal [facility] (11/16/2012 13:17:00) [facility] HEMATOLOGY Anisocyte 1+ None Seen 11/16 [facility] Medical (11/16/2012 13:17:00) Center HEMATOLOGY Schistocyte Occasional 11/16 NA [facility] HEMATOLOGY Monocytes 8.6 2.0 - 12.0 11/16 Normal [facility] HEMATOLOGY Eosinophils 1.5 0.0 - 4.0 11/16 Normal [facility] HEMATOLOGY Monocytes # 1.1 0.0 - 0.8 11/16 HI [facility] HEMATOLOGY Segs-Bands # 9.7 1.5 - 8.1 11/16 HI [facility] HEMATOLOGY Eosinophils # 0.2 0.0 - 0.5 11/16 Normal [facility] HEMATOLOGY Lymphocytes # 2.2 1.0 - 5.5 11/16 Normal [facility] HEMATOLOGY Basophils 0.8 0.0 - 1.0 11/16 Normal [facility] HEMATOLOGY Hgb 10.8 12.0 - 03 LOW [place] 16.0 /2012 [facility] HEMATOLOGY RBC 4.29 4.20 - 03 Normal [facility] 5.40 /2012 [facility] HEMATOLOGY WBC 13.3 3.7 - 10.4 11/16 HI [facility] HEMATOLOGY RDW 18.0 11.5 - 03 HI [place] 14.5 /2012 Medical Center HEMATOLOGY Hct 32.4 36.0 - 03 LOW [place] 48.0 /2012 [facility] HEMATOLOGY MCHC 33.3 32.0 - 03 Normal [place] 36.0 /2012 [facility] HEMATOLOGY MCV 75.4 81.0 - 03 LOW [place] 99.0 /2012 [facility] HEMATOLOGY MCH 25.1 27.0 - 03 LOW [place] 31.0 /2012 [facility] HEMATOLOGY Platelet 230 133 - 450 11/16 Normal [facility] HEMATOLOGY MPV 9.9 7.4 - 10.4 11/16 Normal [facility] BEDSIDE Comment1 Notify 11/14 NA [facility] GLUCOSE RN/ /2012 Medical TESTING Center BEDSIDE Gluc POC 266 70 - 99 11/14 HI <sup>2</sup>I [facility] GLUCOSE [facility] nterpretive Medical TESTING Data: [place] Upper Reportable Limit: 200 mg/dL. BEDSIDE Comment1 Notify 11/14 NA [facility] GLUCOSE MARTÍNEZ/ [facility] TESTING Center BEDSIDE Gluc POC 140 70 - 99 11/14 HI <sup>3</sup>I [facility] GLUCOSE [facility] nterpretive Medical TESTING Data: [place] Upper Reportable Limit: 200 mg/dL. BEDSIDE Comment1 Notify 11/14 NA [facility] GLUCOSE RN/ [facility] TESTING Center BEDSIDE Gluc POC 201 70 - 99 11/14 HI <sup>4</sup>I [facility] GLUCOSE [facility] nterpretive Medical TESTING Data: [place] Upper Reportable Limit: 200 mg/dL. CHEMISTRY A/G Ratio 0.9 0.7 - 1.6 11/14 Normal [facility] CHEMISTRY AST 41 0 - 37 11/14 [facility] CHEMISTRY eGFR 104 11/14 NA <sup>6</sup>R esult Medical Comment: The Center eGFR is calculated using the CKD-EPI formula. In most young, healthy individuals the eGFR will be >90 mL/min/1.73m2 . The eGFR declines with age. An eGFR of 60-89 may be normal in some populations, particularly the elderly, for whom the CKD-EPI formula has not been extensively validated. Use of the eGFR is not recommended in the following populations:& lt;br/>
I ndividuals with unstable creatinine concentration s, including patients and those with serious co-morbid conditions.<b r/>
Patie nts with extremes in muscle mass or diet.

The data above are obtained from the National Kidney Disease Education Program (NKDEP) which additionally recommends that when the eGFR is used in patients with extremes of body mass index for purposes of drug dosing, the eGFR should be multiplied by the estimated BMI. CHEMISTRY Albumin Lvl 2.9 3.5 - 5.0 11/14 [facility] CHEMISTRY Alk Phos 84 39 - 136 11/14 Normal [facility] CHEMISTRY BUN 3 7 - 22 11/14 [facility] CHEMISTRY Creatinine 0.7 0.5 - 1.4 11/14 Normal [facility] /2012 [facility] CHEMISTRY Sodium Lvl 136 135 - 145 11/14 [facility]2012 [facility] CHEMISTRY Total Protein 6.3 6.4 - 8.4 11/14 [facility]2012 [facility] CHEMISTRY ALT 51 0 - 65 11/14 [facility] CHEMISTRY Potassium Lvl 3.7 3.5 - 5.1 11/14 [facility] CHEMISTRY Chloride Lvl 101 95 - 109 11/14 [facility]2012 [facility] CHEMISTRY Glucose Lvl 210 70 - 99 11/14 HI <sup>9</sup>I nterpretive Medical Data: Adult Center reference range values reflect the clinical guidelines
of the [place] [employer]. CHEMISTRY AGAP 15.7 10.0 - 11/14 Normal [facility] 20.0 [facility] CHEMISTRY B/C Ratio 4 6 - 25 11/14 [facility]2012 [facility] CHEMISTRY Globulin 3.4 2.0 - 4.0 11/14 [facility]2012 [facility] CHEMISTRY CO2 23 24 - 32 11/14 LOW [facility] CHEMISTRY Bili Total 0.4 0.2 - 1.3 11/14 Normal [facility] CHEMISTRY Calcium Lvl 8.5 8.5 - 10.5 11/14 Normal [facility] CHEMISTRY Phosphorus 3.6 2.5 - 4.5 11/14 Normal [facility] CHEMISTRY Magnesium Lvl 1.5 1.8 - 2.4 11/14 LOW [facility] CHEMISTRY Ca Norm mgdL 3.52 4.65 - 11/14 LOW [place] . [facility] CHEMISTRY Ca Ion mgdL 3.32 4.65 - 11/14 CRIT [facility] 01.23 [facility] CHEMISTRY Ca Ion 0.83 1.16 - 11/14 CRIT <sup>15</sup> [facility] 10.05 Result Medical Comment: Center Critical Result(s) called to Arlin Rose at 11/14/2012 00:23:56 CDT_ by_tvs. Read back OK. CHEMISTRY Ca Norm 0.88 1.16 - 11/14 CRIT [facility] 1. [facility] HEMATOLOGY Platelet 221 133 - 450 11/14 Normal [facility] HEMATOLOGY RDW 19.0 11.5 - 03 [facility] 14.5 /2012 Medical Center HEMATOLOGY MCHC 32.4 32.0 - 11/14 [facility] [place] 36.0 /2012 [facility] HEMATOLOGY MCV 75.5 81.0 - 11/14 [facility] [place] 99.0 /2012 Medical Center HEMATOLOGY Hct 35.5 36.0 - 11/14 [facility] [place] 48.0 /2012 [facility] HEMATOLOGY Hgb 11.5 12.0 - 03 [facility] [place] 16.0 /2012 Medical Center HEMATOLOGY MCH 24.5 27.0 - 03 [facility] [place] 31.0 /2012 Medical Center HEMATOLOGY MPV 9.1 7.4 - 10.4 11/14 Normal [facility] HEMATOLOGY RBC 4.70 4.20 - 11/14 Normal [place] 5.40 /2012 [facility] HEMATOLOGY WBC 8.6 3.7 - 10.4 11/14 Normal [facility] HEMATOLOGY Segs 53.3 45.0 - 03 Normal [place] 75.0 /2012 [facility] HEMATOLOGY Microcyte 1+ None Seen 11/14 ABN [place] *ABN* /2012 Medical (11/13/2012 23:45:00) [place] HEMATOLOGY Basophils # 0.1 0.0 - 0.2 11/14 Normal [facility] HEMATOLOGY Eosinophils # 0.2 0.0 - 0.5 11/14 Normal [facility] HEMATOLOGY Monocytes # 0.9 0.0 - 0.8 11/14 HI [facility] HEMATOLOGY Lymphocytes # 2.9 1.0 - 5.5 11/14 Normal [facility] HEMATOLOGY Monocytes 10.3 2.0 - 12.0 11/14 Normal [facility] HEMATOLOGY Lymphocytes 33.6 20.0 - 03 Normal [place] 40.0 /2012 [facility] HEMATOLOGY Segs-Bands # 4.6 1.5 - 8.1 11/14 Normal [facility] HEMATOLOGY Basophils 0.7 0.0 - 1.0 11/14 Normal [facility] HEMATOLOGY Eosinophils 2.1 0.0 - 4.0 11/14 Normal [facility] CHEMISTRY Lipase Lvl 43 73 - 393 11/13 LOW [facility] CHEMISTRY Amylase Lvl 14 25 - 115 11/13 LOW [facility] CHEMISTRY A/G Ratio 0.8 0.7 - 1.6 11/13 Normal [facility] CHEMISTRY AST 56 0 - 37 11/13 [facility] CHEMISTRY Alk Phos 67 39 - 136 11/13 Normal [facility] CHEMISTRY Globulin 2.9 2.0 - 4.0 11/13 Normal [facility] CHEMISTRY Total Protein 5.3 6.4 - 8.4 11/13 LOW [facility] CHEMISTRY Albumin Lvl 2.4 3.5 - 5.0 11/13 LOW [facility] CHEMISTRY ALT 41 0 - 65 11/13 Normal [facility] CHEMISTRY Bili Indirect 0.3 0.0 - 1.0 11/13 Normal [facility] CHEMISTRY Bili Direct 0.1 0.0 - 0.3 11/13 Normal [facility] CHEMISTRY Bili Total 0.4 0.2 - 1.3 11/13 Normal [facility] CHEMISTRY eGFR 137 11/13 NA <sup>7</sup>R esult Medical Comment: The Center eGFR is calculated using the CKD-EPI formula. In most young, healthy individuals the eGFR will be >90 mL/min/1.73m2 . The eGFR declines with age. An eGFR of 60-89 may be normal in some populations, particularly the elderly, for whom the CKD-EPI formula has not been extensively validated. Use of the eGFR is not recommended in the following populations:& lt;br/>
I ndividuals with unstable creatinine concentration s, including patients and those with serious co-morbid conditions.<b r/>
Patie nts with extremes in muscle mass or diet.

The data above are obtained from the National Kidney Disease Education Program (NKDEP) which additionally recommends that when the eGFR is used in patients with extremes of body mass index for purposes of drug dosing, the eGFR should be multiplied by the estimated BMI. CHEMISTRY AGAP 17.3 10.0 - 11/13 Normal [facility] 20.0 [facility] CHEMISTRY Calcium Lvl 6.7 8.5 - 10.5 11/13 CRIT <sup>13</sup> Result Medical Comment: Center Critical Result(s) called to _hansel gustafson at _11/13/2012 06:59:47 CDT bylg. Read back OK. CHEMISTRY CO2 17 24 - 32 11/13 LOW [facility] CHEMISTRY Chloride Lvl 111 95 - 109 11/13 HI [facility] CHEMISTRY Potassium Lvl 3.3 3.5 - 5.1 11/13 LOW <sup>5</sup>R esult Medical Comment: Center Specimen Slightly Hemolyzed. CHEMISTRY Sodium Lvl 142 135 - 145 11/13 Normal [facility] CHEMISTRY Creatinine 0.3 0.5 - 1.4 11/13 LOW [facility] CHEMISTRY BUN 3 7 - 22 11/13 LOW 2012 [facility] CHEMISTRY Glucose Lvl 104 70 - 99 11/13 HI <sup>10</sup> Interpretive Medical Data: Adult Center reference range values reflect the clinical guidelines
of the [place] [employer]. CHEMISTRY Magnesium Lvl 1.3 1.8 - 2.4 11/13 [facility] CHEMISTRY Phosphorus 2.8 2.5 - 4.5 03 Normal [facility] CHEMISTRY Ca Ion 1.01 1.16 - 11/13 [facility] [place] 1.30 [facility] CHEMISTRY Ca Norm 1.07 1.16 - 11/13 [facility] [place] 1.30 [facility] CHEMISTRY Ca Norm mgdL 4.28 4.65 - 11/13 [facility] [place] 5. [facility] CHEMISTRY Ca Ion mgdL 4.04 4.65 - 11/13 [facility] [place] 5.20 Medical [place] HEMATOLOGY MCV 78.6 81.0 - 03 [facility] [place] 99.0 /2012 [facility] HEMATOLOGY MPV 9.1 7.4 - 10.4 11/13 Normal [facility] HEMATOLOGY MCHC 31.1 32.0 - 03 [facility] [place] 36.0 /2012 [facility] HEMATOLOGY MCH 24.4 27.0 - 03 [facility] [place] 31.0 [facility] HEMATOLOGY Hct 29.4 36.0 - 11/13 [facility] [place] 48.0 /2012 [facility] HEMATOLOGY RDW 19.1 11.5 - 03 HI [place] 14.5 /2012 [facility] HEMATOLOGY Platelet 192 133 - 450 11/13 Normal [facility] HEMATOLOGY Hgb 9.1 12.0 - 03 [facility] [place] 16.0 [facility] HEMATOLOGY RBC 3.74 4.20 - 11/13 [facility] [place] 5.40 /2012 [facility] HEMATOLOGY WBC 6.8 3.7 - 10.4 11/13 Normal [facility] HEMATOLOGY Plt Morph Normal 11/13 Normal [facility] (11/13/2012 05:00:00) [facility] HEMATOLOGY Atypical 0.0 <=0.0 11/13 Normal [facility] Lymphs /2012 [facility] HEMATOLOGY RBC Morph Normal 11/13 Normal [facility] (11/13/2012 05:00:00) [facility] HEMATOLOGY Eosinophils 2.0 0.0 - 4.0 11/13 Normal [facility] HEMATOLOGY Bands 0.0 0.0 - 11.0 11/13 Normal [facility] HEMATOLOGY Segs 51.0 45.0 - 11/13 [facility] [place] 75.0 [facility] HEMATOLOGY Eosinophils # 0.1 0.0 - 0.5 11/13 Normal [facility] HEMATOLOGY Segs-Bands # 3.5 1.5 - 8.1 11/13 Normal [facility] HEMATOLOGY Monocytes 5.0 2.0 - 12.0 11/13 Normal [facility] HEMATOLOGY Lymphocytes 42.0 20.0 - 11/13 HI [facility] 40.0 [facility] HEMATOLOGY Monocytes # 0.3 0.0 - 0.8 11/13 Normal [facility] HEMATOLOGY Lymphocytes # 2.9 1.0 - 5.5 11/13 Normal [facility] INFECTIOUS C difficile Negative 1 Negative 11/13 Normal <sup>1</sup>I [facility] DISEASES DNA (11/12/2012 21:54:26) nterpretive Medical Data: [place] [employer] Clostridium difficile assay utilizes loop-mediated isothermal DNA amplification (LAMP) technology to detect a 204 bp region of the tcdA gene within the PaLoc gene segment present in all known toxigenic C. difficile strains.

The assay utilizes FDA cleared IVD reagents. Performance characteristi cs have been verified by the [facility] within the [facility]. The Molecular Diagnostic Laboratory is authorized under the Clinical Laboratory Improvement Amendment of 1988 (CLIA-88) to perform high complexity testing. CHEMISTRY Total CK 25 12 - 191 11/12 Normal [facility] CHEMISTRY Troponin-I <0.02 0.00 - 11/12 Normal [facility] 0.40 [facility] CHEMISTRY eGFR 88 11/12 NA <sup>8</sup>R esult Medical Comment: The Center eGFR is calculated using the CKD-EPI formula. In most young, healthy individuals the eGFR will be >90 mL/min/1.73m2 . The eGFR declines with age. An eGFR of 60-89 may be normal in some populations, particularly the elderly, for whom the CKD-EPI formula has not been extensively validated. Use of the eGFR is not recommended in the following populations:& lt;br/>
I ndividuals with unstable creatinine concentration s, including patients and those with serious co-morbid conditions.<b r/>
Patie nts with extremes in muscle mass or diet.

The data above are obtained from the National Kidney Disease Education Program (NKDEP) which additionally recommends that when the eGFR is used in patients with extremes of body mass index for purposes of drug dosing, the eGFR should be multiplied by the estimated BMI. CHEMISTRY AGAP 13.7 10.0 - 03 Normal [place] 20.0 /2012 [facility] CHEMISTRY Calcium Lvl 8.5 8.5 - 10.5 11/12 Normal [facility] CHEMISTRY CO2 25 24 - 32 11/12 Normal [facility] CHEMISTRY Potassium Lvl 3.7 3.5 - 5.1 11/12 Normal [facility] CHEMISTRY Sodium Lvl 138 135 - 145 11/12 Normal [facility] CHEMISTRY Chloride Lvl 103 95 - 109 11/12 Normal [facility] CHEMISTRY Creatinine 0.8 0.5 - 1.4 11/12 Normal [facility] Lvl /2012 [facility] [facility] CHEMISTRY BUN 5 7 - 22 11/12 LOW [facility] CHEMISTRY Glucose Lvl 40 70 - 99 11/12 CRIT <sup>11</sup> Result Medical Comment: Center rechecked Critical Result(s) called to _Leo Rose at 11/12/2012 02:56:37 BOTTOM PRECIPITATOR OPERATOR by_mgm. Read back OK.
<sup> 12</sup>Inter pretive Data: Adult reference range values reflect the clinical guidelines
of the [place] [employer]. CHEMISTRY Ca Norm mgdL 4.20 4.65 - 03 LOW [place] 5.20 [facility] CHEMISTRY Ca Norm 1.05 1.16 - 03 [facility] [place] 1.30 [facility] CHEMISTRY Ca Ion mgdL 4.00 4.65 - 0309 LOW [place] 5.20 [facility] CHEMISTRY Ca Ion 1.00 1.16 - 03/09 LOW [place] 1.30 [facility] CHEMISTRY Magnesium Lvl 1.9 1.8 - 2.4 11/12 Normal [facility] CHEMISTRY Phosphorus 3.2 2.5 - 4.5 11/12 Normal [facility] HEMATOLOGY MCHC 32.0 32.0 - 0309 Normal [place] 36.0 /2013 [facility] HEMATOLOGY MCH 24.1 27.0 - 03/09 [facility] [place] 31.0 /2012 [facility] HEMATOLOGY MCV 75.3 81.0 - 0309 LOW [facility] [place] 99.0 /2012 [facility] HEMATOLOGY WBC 9.2 3.7 - 10.4 03 Normal [place] [facility] HEMATOLOGY Platelet 233 133 - 450 03 Normal [facility] HEMATOLOGY MPV 9.1 7.4 - 10.4 11/12 Normal [facility] HEMATOLOGY RDW 19.0 11.5 - 03/ HI [place] 14.5 /2012 Medical [place] HEMATOLOGY RBC 4.19 4.20 - 03 [facility] [place] 5.40 /2012 [facility] HEMATOLOGY Hgb 10.1 12.0 - 03 [facility] 16.0 /2012 [facility] HEMATOLOGY Hct 31.6 36.0 - 03 [facility] 48.0 /2012 [facility] HEMATOLOGY Hypochrom Slight None Seen 11/12 [facility] (11/12/2012 00:19:00) /2012 [facility] HEMATOLOGY Large Plt Slight None Seen 11/12 [facility] *ABN* /2012 [facility] (11/12/2012 00:19:00) [place] HEMATOLOGY Atypical 0.0 <=0.0 11/12 Normal [facility] Lymphs [facility] HEMATOLOGY Basophils 1.0 0.0 - 1.0 11/12 Normal [facility] HEMATOLOGY Lymphocytes 39.0 20.0 - 03 [facility] 40.0 [facility] HEMATOLOGY Bands 0.0 0.0 - 11.0 11/12 Normal [facility] HEMATOLOGY Eosinophils 2.0 0.0 - 4.0 11/12 Normal [facility] HEMATOLOGY Monocytes 6.0 2.0 - 12.0 11/12 Normal [facility] HEMATOLOGY Segs 52.0 45.0 - 11/12 [facility] 75.0 [facility] HEMATOLOGY Basophils # 0.1 0.0 - 0.2 11/12 Normal [facility] HEMATOLOGY Monocytes # 0.6 0.0 - 0.8 03 Normal [facility] HEMATOLOGY Lymphocytes # 3.6 1.0 - 5.5 11/12 Normal [facility] HEMATOLOGY Segs-Bands # 4.8 1.5 - 8.1 11/12 Normal [facility] HEMATOLOGY Eosinophils # 0.2 0.0 - 0.5 11/12 Normal [facility] HEMATOLOGY Microcyte 1+ None Seen 11/11 [facility] Medical (11/11/2012 03:41:00) Center HEMATOLOGY Basophils # 0.1 0.0 - 0.2 11/11 Normal [facility] HEMATOLOGY Basophils 0.7 0.0 - 1.0 11/11 Normal [facility] HEMATOLOGY Microcyte 1+ None Seen 11/09 [facility] Medical (11/09/2012 05:12:00) Center URINALYSIS UA pH 5.0 5.0 - 8.0 11/08 Normal [facility] URINALYSIS UA Protein 20 mg/dL Negative 11/08 [facility] Medical (11/07/2012 20:54:00) Center URINALYSIS UA Turbidity Slight Clear 11/08 [facility] Medical (11/07/2012 20:54:00) Center URINALYSIS UA Spec Grav 1.010 <=1.030 11/08 Normal [facility] URINALYSIS UA Color Yellow Yellow 11/08 NA [facility] Medical (11/07/2012 20:54:00) Center URINALYSIS UA Bacteria Moderate /HPF None Seen 11/08 [facility] Medical (11/07/2012 20:54:00) Center URINALYSIS UA Mucus Few /LPF None Seen 11/08 [facility] Medical (11/07/2012 20:54:00) Center URINALYSIS UA WBC >182 0 - 5 11/08 [facility] URINALYSIS UA RBC 4 0 - 2 11/08 [facility] URINALYSIS UA Sq Epi Moderate /LPF Few 11/08 [facility] Medical (11/07/2012 20:54:00) Center URINALYSIS UA Leuk Est Large Negative 11/08 [facility] Medical (11/07/2012 20:54:00) Center URINALYSIS UA Blood Trace Negative 11/08 [facility] Medical (11/07/2012 20:54:00) Center URINALYSIS UA Nitrite Negative Negative 11/08 Normal [facility] (11/07/2012 20:54:00) [facility] URINALYSIS UA Ketones 40 mg/dL Negative 11/08 [facility] (11/07/2012 20:54:00) Center URINALYSIS UA Bili Negative Negative 11[facility] (11/07[facility]2012 20:54:00[facility] Center URINALYSIS Micro? Performed 11/08 [facility] (11/07/2012 20:54:00) Center URINALYSIS UA 0.1 - 1.0 11/08 [facility] Urobilinogen /2012 [facility] URINALYSIS UA Glucose >=1000mg/d 11/08 [facility] L [facility] URINALYSIS UA Hyal Cast 37 0 - 2 11/08 [facility] URINALYSIS UA Ketones 40 mg/dL Negative 11/07 [facility] Medical (11/07/2012 06:24:57) Center CHEMISTRY Hgb A1C 8.2 11/07 NA <sup>14</sup> Interpretive Medical Data: HbA1C% Center eAG(mg/dL) Interpretatio n
6.0 126 Very good control
6.5 140 Very good control
7.0 154 Good Control
7.5 169 Good Control
8.0 183 Marginal Control, take action to lower
8.5 197 Marginal Control, take action to lower
9.0 212 Poor Control, take action to lower
9.5 226 Poor Control, take action to lower
10. 0 240 Poor Control, take action to lower CHEMISTRY Ketone 2.20 <=0.27 11/06 [facility] CHEMISTRY U Osmolality 207 300 - 800 11/06 LOW [facility] CHEMISTRY POC A %FIO2 21.0 18.0 - 11/06 Normal [facility] 100. [facility] CHEMISTRY POC A LA 0.9 0.5 - 2.2 11/06 Normal [facility] CHEMISTRY POC A Glu 281 70 - 99 11/06 [facility] CHEMISTRY POC A Temp 37.0 11/06 NA [facility] CHEMISTRY POC A Source ART 11/06 NA [facility] CHEMISTRY POC A pH 7.45 7.35 - 11/06 Normal [facility] [place] 7.45 /2012 Medical [place] CHEMISTRY POC A HCO3 24 22 - 26 03 Normal Medical [place] CHEMISTRY POC A PCO2 35 35 - 45 03 Normal [facility] CHEMISTRY POC A PO2 85 80 - 100 11/06 Normal [facility] CHEMISTRY POC A BE 0 -2-2 - 2 11/06 Normal [facility] CHEMISTRY POC A O2 Sat 97.0 95.0 - 11/06 Normal [place] 100.0 Medical Center CHEMISTRY POC A Na 123 135 - 145 03 LOW [facility] CHEMISTRY POC A Hct 31.0 36.0 - 11/06 LOW [place] 48.0 [facility] CHEMISTRY POC A Ca Ion 1.11 1.16 - 11/06 LOW [facility] 1.30 [facility] CHEMISTRY POC A K 3.7 3.5 - 5.1 11/06 Normal [facility] CHEMISTRY POC A BE -4 -2-2 - 2 11/06 LOW [facility] CHEMISTRY POC A HCO3 20 22 - 26 11/06 LOW [facility] CHEMISTRY POC A Source ART 11/06 NA [facility] CHEMISTRY POC A Temp 37.0 11/06 NA [facility] CHEMISTRY POC A pH 7.42 7.35 - 11/06 Normal [facility] 7.45 [facility] CHEMISTRY POC A PO2 81 80 - 100 11/06 Normal [facility] CHEMISTRY POC A O2 Sat 96.0 95.0 - 11/06 Normal [facility] 100.0 [facility] CHEMISTRY POC A PCO2 31 35 - 45 11/06 LOW [facility] CHEMISTRY POC A %FIO2 21.0 18.0 - 11/06 Normal [facility] 100.0 /2012 [facility] Microbiolog Culture: 11/06 [facility] y Urine /2012 [facility] CHEMISTRY Troponin-I <0.02 0.00 - 03 Normal [facility] 0.40 /2012 [facility] CHEMISTRY Troponin-T <0.010 0.000 - 03 Normal [facility] 0.100 /2012 [facility] CHEMISTRY Total CK 48 12 - 191 11/06 Normal [facility] URINALYSIS UA 0.1 - 1.0 11/06 NA [facility] Urobilinogen /2012 [facility] URINALYSIS UA Leuk Est Large Negative 11/06 ABN [facility] * Medical (11/06/2012 03:15:40) Center URINALYSIS UA Sq Epi Moderate /LPF Few 11/06 [facility] Medical (11/06/2012 03:15:40) Center URINALYSIS UA Mucus Few /LPF None Seen 11/06 [facility] Medical (11/06/2012 03:15:40) Center URINALYSIS UA Nitrite Negative Negative 11/06 Normal [facility] (11/06/2012 03:15:40) Medical Center URINALYSIS UA Bacteria Occasional /HPF None [facility]en 11[facility] 03:15:40[facility] Center URINALYSIS UA WBC 67 0 - 5 11/06 [facility] Medical Center URINALYSIS UA Blood Negative Negative 11/06 Normal [facility] (11/06/2012 03:15:40) Medical Center URINALYSIS UA Bili Negative Negative 11/06 [facility] Medical (11/06/2012 03:15:40) Center URINALYSIS UA Ketones 60 mg/dL Negative 11/06 [facility] Medical (11/06/2012 03:15:40) Center URINALYSIS UA pH 5.0 5.0 - 8.0 11/06 Normal Medical Center URINALYSIS UA Glucose >=1000 mg/dL Negative 11/06 [facility] Medical (11/06/2012 03:15:40) Center URINALYSIS UA Spec Grav 1.014 <=1.030 11/06 Normal Medical Center URINALYSIS UA Protein Negative mg/dL Negative 11/06 Normal [facility] (11/06/2012 03:15:40) Medical Center URINALYSIS UA Turbidity Slight Clear 11/06 [facility] Medical (11/06/2012 03:15:40) Center URINALYSIS UA Color Yellow Yellow 11/06 NA [facility] Medical (11/06/2012 03:15:40) Center CHEMISTRY Troponin-I 0.02 0.00 - 11/06 Normal [facility] 0.40 Medical Center CHEMISTRY Total CK 30 12 - 191 11/06 Normal Medical Center CHEMISTRY Troponin-T <0.010 0.000 - 11/06 Normal [facility] 0.100 /2012 Medical [place] CHEMISTRY Ketone 3.00 <=0.27 11/06 HI [facility] Medical [place] CHEMISTRY Lipase Lvl 89 73 - 393 11/06 Normal [facility] CHEMISTRY Globulin 4.3 2.0 - 4.0 11/06 [facility] CHEMISTRY A/G Ratio 0.9 0.7 - 1.6 11/06 Normal [facility] CHEMISTRY B/C Ratio 7 6 - 25 11/06 Normal [facility] CHEMISTRY Albumin Lvl 3.7 3.5 - 5.0 11/06 Normal [facility] CHEMISTRY Total Protein 8.0 6.4 - 8.4 11/06 Normal [facility] CHEMISTRY ALT 62 0 - 65 11/06 Normal [facility] CHEMISTRY Alk Phos 119 39 - 136 11/06 Normal [facility] CHEMISTRY Bili Total 0.5 0.2 - 1.3 11/06 Normal [facility] CHEMISTRY AST 44 0 - 37 11/06 [facility] HEMATOLOGY Polychrom Slight None Seen 11/06 Normal [facility] (11/05/2012 20:40:00) Medical Center HEMATOLOGY Hypochrom Slight None Seen 11/06 Normal [facility] (11/05/2012 20:40:00) [facility] HEMATOLOGY Bands 1.0 0.0 - 11.0 11/06 Normal [facility] HEMATOLOGY Anisocyte 1+ None Seen 11/06 [facility] *ABN* Medical (11/05/2012 20:40:00) Center HEMATOLOGY Atypical 0.0 <=0.0 11/06 Normal [facility] Lymphs [facility] HEMATOLOGY Macrocyte 1+ None Seen 11/06 [facility]iatric *ABN* Medical (11/05/2012 20:40:00) Center HEMATOLOGY Plt Morph Normal 11/06 Normal [facility] (11/05/2012 20:40:00) [facility] HEMATOLOGY INR 0.98 0.85 - 11/06 Normal <sup>16</sup> [facility] 1. Interpretive Medical Data: Center RECOMMENDED RANGES FOR PROTIME INR:
2.0-3.0 for most medical and surgical thromboemboli c states.
2.5-3.5 for artificial heart valves and recurrent embolism.<br/ >
INR SHOULD BE USED ONLY FOR PATIENTS ON STABLE ANTICOAGULANT THERAPY. HEMATOLOGY PT 13.2 12.0 - 11/06 Normal [facility] 14.7 /2012 [facility] HEMATOLOGY PTT 26.4 22.9 - 03 Normal <sup>17</sup> [facility] 35.8 /2012 Interpretive Medical Data: Heparin Center Therapeutic Range: 57 - 92 Seconds BEDSIDE Gluc POC >400 70 - 99 11/01 CRIT <sup>3</sup>I [facility] nterpretive Medical TESTING Data: Center Upper Reportable Limit: 200 mg/dL. BEDSIDE Comment1 Notify 11/01 NA [facility] GLUCOSE MARTÍNEZ/ /2012 Medical TESTING Center BEDSIDE Gluc POC 237 70 - 99 10/31 HI <sup>4</sup>I [facility] nterpretive Medical TESTING Data: Center Upper Reportable Limit: 200 mg/dL. BEDSIDE Gluc POC 357 70 - 99 10/31 HI <sup>5</sup>I [facility] nterpretive Medical TESTING Data: Center Upper Reportable Limit: 200 mg/dL. BEDSIDE Comment1 Notify 10/31 NA [facility] GLUCOSE MARTÍNEZ/ /2012 Medical TESTING Center CHEMISTRY Phosphorus 4.2 2.5 - 4.5 10/31 Normal [facility] CHEMISTRY Ca Norm mgdL 4.64 4.65 - 10/31 LOW [facility] 5. [facility] CHEMISTRY Ca Ion mgdL 4.44 4.65 - 10/31 [facility] 5. [facility] CHEMISTRY Ca Norm 1.16 1.16 - 10/31 Normal [facility] 1.30 [facility] CHEMISTRY Ca Ion 1.11 1.16 - 10/31 LOW [facility] 1.30 [facility] CHEMISTRY AGAP 16.9 10.0 - 10/31 Normal [facility] 20.0 [facility] CHEMISTRY eGFR 67 10/31 NA <sup>7</sup>R esult Medical Comment: The Center eGFR is calculated using the CKD-EPI formula. In most young, healthy individuals the eGFR will be >90 mL/min/1.73m2 . The eGFR declines with age. An eGFR of 60-89 may be normal in some populations, particularly the elderly, for whom the CKD-EPI formula has not been extensively validated. Use of the eGFR is not recommended in the following populations:& lt;br/>
I ndividuals with unstable creatinine concentration s, including patients and those with serious co-morbid conditions.<b r/>
Patie nts with extremes in muscle mass or diet.

The data above are obtained from the National Kidney Disease Education Program (NKDEP) which additionally recommends that when the eGFR is used in patients with extremes of body mass index for purposes of drug dosing, the eGFR should be multiplied by the estimated BMI. CHEMISTRY Creatinine 1.0 0.5 - 1.4 10/31 Normal [facility] CHEMISTRY Sodium Lvl 133 135 - 145 10/31 [facility] CHEMISTRY Calcium Lvl 8.3 8.5 - 10.5 10/31 [facility] CHEMISTRY Potassium Lvl 3.9 3.5 - 5.1 10/31 Normal [facility] CHEMISTRY Chloride Lvl 94 95 - 109 10/31 [facility] CHEMISTRY CO2 26 24 - 32 10/31 [facility] CHEMISTRY BUN 8 7 - 22 10/31 [facility] CHEMISTRY Glucose Lvl 75 70 - 99 10/31 Normal <sup>10</sup> Interpretive Medical Data: Adult Center reference range values reflect the clinical guidelines
of the [place] [employer]. CHEMISTRY Magnesium Lvl 1.9 1.8 - 2.4 10/31 [facility] HEMATOLOGY MPV 9.4 7.4 - 10.4 10/31 [facility] HEMATOLOGY Hgb 9.7 12.0 - 10/31 [facility] 16.0 [facility] HEMATOLOGY RBC 4.06 4.20 - 10/31 [facility] 5.40 [facility] HEMATOLOGY MCV 74.3 81.0 - 10/31 [facility] 99.0 [facility] HEMATOLOGY Hct 30.2 36.0 - 10/31 [facility] [place] 48.0 [facility] HEMATOLOGY MCHC 32.2 32.0 - 10/31 [facility] 36.0 Medical Center HEMATOLOGY MCH 23.9 27.0 - 10/31 LOW [place] 31.0 /2012 [facility] HEMATOLOGY Platelet 199 133 - 450 10/31 Normal [facility] HEMATOLOGY RDW 17.5 11.5 - 10/31 HI [facility] 14.5 [facility] HEMATOLOGY WBC 9.4 3.7 - 10.4 10/31 Normal [facility] HEMATOLOGY Lymphocytes # 2.7 1.0 - 5.5 10/31 Normal [facility] HEMATOLOGY Basophils 0.6 0.0 - 1.0 10/31 Normal [facility] HEMATOLOGY Segs-Bands # 5.2 1.5 - 8.1 10/31 Normal [facility] HEMATOLOGY Microcyte 1+ None Seen 10/31 [facility] *ABN* /2012 [facility] (10/31/2012 04:00:00) [place] HEMATOLOGY Monocytes # 1.1 0.0 - 0.8 10/31 [facility] HEMATOLOGY Eosinophils # 0.3 0.0 - 0.5 10/31 Normal [facility] HEMATOLOGY Basophils # 0.1 0.0 - 0.2 10/31 Normal [facility] HEMATOLOGY Segs 55.2 45.0 - 10/31 Normal [facility] 75.0 [facility] HEMATOLOGY Monocytes 11.8 2.0 - 12.0 10/31 Normal [facility] HEMATOLOGY Lymphocytes 28.9 20.0 - 10/31 Normal [place] 40.0 [facility] HEMATOLOGY Eosinophils 3.5 0.0 - 4.0 10/31 Normal [facility] BEDSIDE Comment1 Notify 10/31 NA [facility] GLUCOSE RN/ Medical TESTING Center CHEMISTRY Ca Norm mgdL 4.92 4.65 - 10/30 Normal [facility] 5. [facility] CHEMISTRY Ca Ion mgdL 4.76 4.65 - 10/30 Normal [facility] 5. [facility] CHEMISTRY Ca Norm 1.23 1.16 - 10/30 Normal [facility] . [facility] CHEMISTRY Ca Ion 1.19 1.16 - 10/30 Normal [facility] 10.05 [facility] CHEMISTRY Phosphorus 3.8 2.5 - 4.5 10/30 Normal [facility] CHEMISTRY Magnesium Lvl 1.9 1.8 - 2.4 10/30 Normal [facility] CHEMISTRY eGFR 88 10/30 NA <sup>8</sup>R esult Medical Comment: The Center eGFR is calculated using the CKD-EPI formula. In most young, healthy individuals the eGFR will be >90 mL/min/1.73m2 . The eGFR declines with age. An eGFR of 60-89 may be normal in some populations, particularly the elderly, for whom the CKD-EPI formula has not been extensively validated. Use of the eGFR is not recommended in the following populations:& lt;br/>
I ndividuals with unstable creatinine concentration s, including patients and those with serious co-morbid conditions.<b r/>
Patie nts with extremes in muscle mass or diet.

The data above are obtained from the National Kidney Disease Education Program (NKDEP) which additionally recommends that when the eGFR is used in patients with extremes of body mass index for purposes of drug dosing, the eGFR should be multiplied by the estimated BMI. CHEMISTRY Glucose Lvl 91 70 - 99 10/30 Normal <sup>11</sup> Interpretive Medical Data: Adult Center reference range values reflect the clinical guidelines
of the [place] [employer]. CHEMISTRY Creatinine 0.8 0.5 - 1.4 10/30 Normal [facility] CHEMISTRY BUN 6 7 - 22 10/30 [facility] CHEMISTRY Sodium Lvl 132 135 - 145 10/30 [facility] CHEMISTRY Calcium Lvl 8.5 8.5 - 10.5 10/30 [facility] CHEMISTRY CO2 29 24 - 32 10/30 Normal [facility] CHEMISTRY Chloride Lvl 92 95 - 109 10/30 [facility] CHEMISTRY Potassium Lvl 3.8 3.5 - 5.1 10/30 Normal [facility] CHEMISTRY AGAP 14.8 10.0 - 10/30 [facility] 20. [facility] HEMATOLOGY Platelet 245 133 - 450 10/30 [facility] HEMATOLOGY MPV 9.4 7.4 - 10.4 10/30 [facility] HEMATOLOGY Hct 33.1 36.0 - 10/30 [facility] 48.0 [facility] HEMATOLOGY RBC 4.47 4.20 - 10/30 Normal [place] 5.40 /2012 [facility] HEMATOLOGY WBC 11.0 3.7 - 10.4 10/30 [facility] HEMATOLOGY Hgb 10.6 12.0 - 10/30 [facility] [place] 16.0 /2012 [facility] HEMATOLOGY MCHC 31.9 32.0 - 02 [facility] [place] 36.0 /2012 [facility] HEMATOLOGY MCV 74.1 81.0 - 10/30 [facility] [place] 99.0 /2012 [facility] HEMATOLOGY MCH 23.7 27.0 - 02 [facility] [place] 31.0 /2012 [facility] HEMATOLOGY RDW 16.9 11.5 - 02 [facility] [place] 14.5 /2012 [facility] HEMATOLOGY PTT 28.1 22.9 - 10/30 Normal <sup>25</sup> [facility] 35.8 /2012 Interpretive Medical Data: [facility] Therapeutic Range: 57 - 92 Seconds HEMATOLOGY PT 13.7 12.0 - 10/30 Normal [facility] 14.7 /2012 [facility] HEMATOLOGY INR 1.03 0.85 - 10/30 Normal <sup>22</sup> [facility] 1.17 /2012 Interpretive Medical Data: Center RECOMMENDED RANGES FOR PROTIME INR:
2.0-3.0 for most medical and surgical thromboemboli c states.
2.5-3.5 for artificial heart valves and recurrent embolism.<br/ >
INR SHOULD BE USED ONLY FOR PATIENTS ON STABLE ANTICOAGULANT THERAPY. HEMATOLOGY Segs-Bands # 7.5 1.5 - 8.1 10/30 [facility] HEMATOLOGY Basophils 0.4 0.0 - 1.0 10/30 [facility] HEMATOLOGY Monocytes # 1.1 0.0 - 0.8 10/30 [facility] HEMATOLOGY Lymphocytes # 2.1 1.0 - 5.5 10/30 [facility] HEMATOLOGY Microcyte 1+ None Seen 10/30 [facility] [place] *ABN* /2012 Medical (10/30/2012 00:20:00) [place] HEMATOLOGY Eosinophils # 0.2 0.0 - 0.5 10/30 [facility] HEMATOLOGY Segs 68.3 45.0 - 10/30 [facility] [place] 75.0 /2012 [facility] HEMATOLOGY Lymphocytes 18.9 20.0 - 10/30 [facility] 40.0 [facility] HEMATOLOGY Monocytes 10.3 2.0 - 12.0 10/30 Normal [facility] HEMATOLOGY Eosinophils 2.1 0.0 - 4.0 10/30 Normal [facility] CHEMISTRY Magnesium Lvl 2.1 1.8 - 2.4 10/29 Normal [facility] CHEMISTRY Phosphorus 4.1 2.5 - 4.5 10/29 Normal [facility] CHEMISTRY Ca Ion mgdL 3.96 4.65 - 10/29 [facility] 5. [facility] CHEMISTRY Ca Norm 1.01 1.16 - 10/29 [facility] 1. [facility] CHEMISTRY Ca Ion 0.99 1.16 - 10/29 [facility] 1. [facility] CHEMISTRY Ca Norm mgdL 4.04 4.65 - 10/29 [facility] . [facility] CHEMISTRY eGFR 104 10/29 NA <sup>9</sup>R esult Medical Comment: The Center eGFR is calculated using the CKD-EPI formula. In most young, healthy individuals the eGFR will be >90 mL/min/1.73m2 . The eGFR declines with age. An eGFR of 60-89 may be normal in some populations, particularly the elderly, for whom the CKD-EPI formula has not been extensively validated. Use of the eGFR is not recommended in the following populations:& lt;br/>
I ndividuals with unstable creatinine concentration s, including patients and those with serious co-morbid conditions.<b r/>
Patie nts with extremes in muscle mass or diet.

The data above are obtained from the National Kidney Disease Education Program (NKDEP) which additionally recommends that when the eGFR is used in patients with extremes of body mass index for purposes of drug dosing, the eGFR should be multiplied by the estimated BMI. CHEMISTRY Creatinine 0.7 0.5 - 1.4 10/29 Normal [facility] CHEMISTRY BUN 3 7 - 22 10/29 LOW [facility] CHEMISTRY Calcium Lvl 8.9 8.5 - 10.5 10/29 Normal [facility] CHEMISTRY Glucose Lvl 90 70 - 99 10/29 Normal <sup>12</sup> Interpretive Medical Data: Adult Center reference range values reflect the clinical guidelines
of the [place] [employer]. CHEMISTRY Chloride Lvl 99 95 - 109 10/29 Normal [facility] CHEMISTRY Potassium Lvl 4.4 3.5 - 5.1 10/29 Normal /2012 [facility] CHEMISTRY CO2 27 24 - 32 10/29 Normal [facility] CHEMISTRY Sodium Lvl 139 135 - 145 10/29 Normal [facility] CHEMISTRY AGAP 17.4 10.0 - 10/29 Normal [facility] 20.0 /2012 [facility] HEMATOLOGY PTT 23.7 22.9 - 10/29 Normal <sup>26</sup> [facility] 35.8 /2012 Interpretive Medical Data: [facility] Therapeutic Range: 57 - 92 Seconds HEMATOLOGY PT 13.4 12.0 - 10/29 Normal [facility] 14.7 /2012 [facility] HEMATOLOGY INR 1.00 0.85 - 10/29 Normal <sup>23</sup> [facility] 1.17 Interpretive Medical Data: Center RECOMMENDED RANGES FOR PROTIME INR:
2.0-3.0 for most medical and surgical thromboemboli c states.
2.5-3.5 for artificial heart valves and recurrent embolism.<br/ >
INR SHOULD BE USED ONLY FOR PATIENTS ON STABLE ANTICOAGULANT THERAPY. HEMATOLOGY RDW 17.1 11.5 - 10/29 [facility] 14.5 /2012 [facility] HEMATOLOGY MCH 23.8 27.0 - 10/29 LOW [facility] 31.0 /2012 [facility] HEMATOLOGY MCHC 32.2 32.0 - 10/29 Normal [facility] 36.0 /2012 [facility] HEMATOLOGY Hct 33.6 36.0 - 10/29 LOW [facility] 48.0 /2012 [facility] HEMATOLOGY MCV 74.0 81.0 - 10/29 LOW [facility] 99.0 /2012 [facility] HEMATOLOGY Platelet 233 133 - 450 10/29 Normal [facility] HEMATOLOGY MPV 9.9 7.4 - 10.4 10/29 Normal [facility] HEMATOLOGY RBC 4.54 4.20 - 10/29 Normal [facility] 5.40 /2012 [facility] HEMATOLOGY Hgb 10.8 12.0 - 10/29 LOW [place] 16.0 /2012 [facility] HEMATOLOGY WBC 9.7 3.7 - 10.4 10/29 Normal [facility] HEMATOLOGY Lymphocytes # 2.6 1.0 - 5.5 10/29 Normal [facility] HEMATOLOGY Basophils 0.7 0.0 - 1.0 10/29 Normal [facility] HEMATOLOGY Segs-Bands # 6.0 1.5 - 8.1 10/29 Normal [facility] HEMATOLOGY Monocytes # 0.7 0.0 - 0.8 10/29 Normal [facility] HEMATOLOGY Eosinophils # 0.3 0.0 - 0.5 10/29 Normal [facility] HEMATOLOGY Basophils # 0.1 0.0 - 0.2 10/29 Normal [facility] HEMATOLOGY Microcyte 1+ None Seen 10/29 [facility] [place] *ABN* /2012 Medical (10/29/2012 00:56:00) [place] HEMATOLOGY Segs 61.5 45.0 - 10/29 Normal [facility] 75.0 [facility] HEMATOLOGY Lymphocytes 26.8 20.0 - 10/29 Normal [facility] 40.0 [facility] HEMATOLOGY Monocytes 7.6 2.0 - 12.0 10/29 Normal [facility] HEMATOLOGY Eosinophils 3.4 0.0 - 4.0 10/29 Normal [facility] CHEMISTRY Amylase Lvl 27 25 - 115 10/28 Normal [facility] CHEMISTRY Lipase Lvl 58 73 - 393 10/28 LOW [facility] CHEMISTRY Bili Indirect 0.2 0.0 - 1.0 10/28 Normal [facility] CHEMISTRY Globulin 3.4 2.0 - 4.0 10/28 Normal [facility] CHEMISTRY A/G Ratio 0.8 0.7 - 1.6 10/28 Normal [facility] CHEMISTRY AST 24 0 - 37 10/28 Normal [facility] CHEMISTRY Bili Total 0.3 0.2 - 1.3 10/28 Normal [facility] CHEMISTRY Total Protein 6.2 6.4 - 8.4 10/28 LOW [facility] CHEMISTRY ALT 23 0 - 65 10/28 Normal [facility] CHEMISTRY Albumin Lvl 2.8 3.5 - 5.0 10/28 LOW [facility] CHEMISTRY Alk Phos 85 39 - 136 10/28 Normal [facility] CHEMISTRY Bili Direct 0.1 0.0 - 0.3 10/28 Normal [facility] HEMATOLOGY PTT 23.9 22.9 - 10/28 Normal <sup>27</sup> [facility] 35.8 /2012 Interpretive Medical Data: Heparin Center Therapeutic Range: 57 - 92 Seconds HEMATOLOGY PT 13.5 12.0 - 10/28 Normal [facility] 14.7 /2012 Medical Center HEMATOLOGY INR 1.01 0.85 - 10/28 Normal <sup>24</sup> [facility] 1.17 /2012 Interpretive Medical Data: Center RECOMMENDED RANGES FOR PROTIME INR:
2.0-3.0 for most medical and surgical thromboemboli c states.
2.5-3.5 for artificial heart valves and recurrent embolism.<br/ >
INR SHOULD BE USED ONLY FOR PATIENTS ON STABLE ANTICOAGULANT THERAPY. VIRAL - Influ B Negative 6 Negative 10/28 Normal <sup>6</sup>I [facility] SEROLOGY (10/27/2012 18:02:02) nterpretive Medical Data: Due Center to the low sensitivity of this test a negative result does not exclude influenza virus infection. A diagnosis of influenza should be considered based on a patient's clinical presentation and empiric antiviral treatment should be considered, if indicated. If more conclusive testing is desired, follow-up confirmatory testing with either viral culture or PCR is warranted. VIRAL - Influ A Negative Negative 10/28 Normal [facility] SEROLOGY (10/27/2012 18:02:02) [facility] CHEMISTRY Vitamin D, 16 30 - 100 10/25 LOW <sup>13</sup> [facility] 25-OH, Interpretive Medical Data: Center Reference range is based on recommendatio ns in the Endocrine<br/ >Society Clinical Practice Guideline (J Clin Endocrinol Metab
201 1;[id number] 0) CHEMISTRY Hgb A1C 8.4 10/25 NA <sup>21</sup> [facility] Interpretive Medical Data: HbA1C% Center eAG(mg/dL) Interpretatio n
6.0 126 Very good control
6.5 140 Very good control
7.0 154 Good Control
7.5 169 Good Control
8.0 183 Marginal Control, take action to lower
8.5 197 Marginal Control, take action to lower
9.0 212 Poor Control, take action to lower
9.5 226 Poor Control, take action to lower
10. 0 240 Poor Control, take action to lower CHEMISTRY LDL 87 0 - 129 10/25 Normal [facility] CHEMISTRY HDL 35 >=35 10/25 Normal [facility] CHEMISTRY Trig 101 0 - 200 10/25 Normal [facility] CHEMISTRY Chol 142 120 - 200 10/25 Normal [facility] CHEMISTRY CHD Risk 4.06 3.90 - 10/25 Normal [facility] 5.80 /2012 [facility] CHEMISTRY Troponin-I 5.43 0.00 - 10/25 CRIT <sup>18</sup> [facility] 0.40 Result Medical Comment: Center Critical Result(s) called to Jelani Rasmussen at 10/25/2012 00:47:48 BOTTOM PRECIPITATOR OPERATOR by . Read back OK. CHEMISTRY Troponin-T 0.693 0.000 - 10/25 CRIT <sup>15</sup> [facility] 0.100 Result Medical Comment: Center Critical Result(s) called to daisy otoole at 10/25/2012 01:18:09 BOTTOM PRECIPITATOR OPERATOR by tac. Read back OK. HEMATOLOGY Basophils # 0.2 0.0 - 0.2 10/25 Normal [facility] HEMATOLOGY Plt Morph Normal 10/25 Normal [facility] (10/25/2012 00:15:00) [facility] CHEMISTRY ALT 15 0 - 65 10/24 Normal [facility] CHEMISTRY Albumin Lvl 2.7 3.5 - 5.0 10/24 LOW [facility] CHEMISTRY Bili Total 0.5 0.2 - 1.3 10/24 Normal [facility] CHEMISTRY Alk Phos 83 39 - 136 10/24 Normal [facility] CHEMISTRY Bili Direct 0.2 0.0 - 0.3 10/24 Normal [facility] CHEMISTRY Total Protein 5.8 6.4 - 8.4 10/24 LOW [facility] CHEMISTRY AST 41 0 - 37 10/24 HI [facility] CHEMISTRY Bili Indirect 0.3 0.0 - 1.0 10/24 Normal [facility] CHEMISTRY Globulin 3.1 2.0 - 4.0 10/24 Normal [facility] CHEMISTRY A/G Ratio 0.9 0.7 - 1.6 10/24 Normal [facility] CHEMISTRY POC A Mode NC-3LPM 10/24 NA [facility] CHEMISTRY POC A HCO3 19 22 - 26 10/24 LOW [facility] CHEMISTRY POC A O2 Sat 98.0 95.0 - 10/24 Normal [place] 100.0 [facility] CHEMISTRY POC A BE -6 -2-2 - 2 10/24 LOW [facility] CHEMISTRY POC A PO2 103 80 - 100 10/24 HI [facility] CHEMISTRY POC A pH 7.35 7.35 - 10/24 LOW [facility] 7.45 [facility] CHEMISTRY POC A PCO2 34 35 - 45 10/24 LOW [facility] CHEMISTRY POC A Temp 37.0 10/24 NA [facility] CHEMISTRY POC A Source ART 10/24 NA [facility] CHEMISTRY Troponin-T 0.688 0.000 - 10/24 CRIT <sup>16</sup> [facility] 0.100 Result Medical Comment: Center Critical Result(s) called to Maribel Bustos at 10/24/2012 13:23:46 BOTTOM PRECIPITATOR OPERATOR by lwb . Read back OK. CHEMISTRY Troponin-I 7.61 0.00 - 10/24 CRIT <sup>19</sup> [facility] 0.40 /2012 Result Medical Comment: Center Critical Result(s) called to mariana bustos at 10/24/2012 13:37:22 CSTby_lss. Read back OK. CHEMISTRY Total CK 150 12 - 191 10/24 Normal [facility] CHEMISTRY Lactic Acid 0.7 0.5 - 2.2 10/24 Normal [facility] Lvl [facility] CHEMISTRY CK MB Index 11.0 0.0 - 2.5 10/24 HI [facility] CHEMISTRY CK MB 16.5 0.5 - 3.6 10/24 HI [facility] CHEMISTRY Troponin-T 0.750 0.000 - 10/24 CRIT <sup>17</sup> [facility] 0.100 Result Medical Comment: Center Critical Result(s) called to Lyn King at 10/24/2012 09:52:38 BOTTOM PRECIPITATOR OPERATOR by lwb . Read back OK. CHEMISTRY Troponin-I 7.60 0.00 - 10/24 CRIT <sup>20</sup> [facility] 0.40 /2012 Result Medical Comment: Center Critical Result(s) called to romero beltre at _10/24/2012 09:50:18 BOTTOM PRECIPITATOR OPERATOR by_lss. Read back OK. CHEMISTRY Total CK 170 12 - 191 10/24 Normal <sup>14</sup> Result Medical Comment: Center Specimen Moderately Hemolyzed. CHEMISTRY CK MB Index 10.5 0.0 - 2.5 10/24 HI [facility] CHEMISTRY CK MB 17.8 0.5 - 3.6 10/24 HI [facility] CHEMISTRY Ketone 0.07 <=0.27 10/24 Normal [facility] CHEMISTRY Ketone 2.61 <=0.27 10/24 HI [facility] CHEMISTRY CK MB 30.9 0.5 - 3.6 10/24 HI [facility] CHEMISTRY CK MB Index 12.2 0.0 - 2.5 10/24 HI [facility] CHEMISTRY Total CK 254 12 - 191 10/24 HI [facility] CHEMISTRY Lactic Acid 0.6 0.5 - 2.2 10/24 Normal Lvl [facility] CHEMISTRY POC V O2 Sat 56.0 40.0 - 10/24 Normal [place] 70.0 [facility] CHEMISTRY POC V HCO3 22 22 - 26 10/24 Normal [facility] CHEMISTRY POC V PO2 32 20 - 49 10/24 Normal [facility] CHEMISTRY POC V BE -4 -2-2 - 2 10/24 LOW [facility] CHEMISTRY POC V PCO2 41 38 - 52 10/24 Normal [facility] CHEMISTRY POC V pH 7.33 7.28 - 10/24 Normal [facility] 7.42 [facility] CHEMISTRY POC V Temp 37.0 10/24 NA [facility] CHEMISTRY POC V Source MARK 10/24 NA [facility] CHEMISTRY Ketone 0.93 <=0.27 10/24 HI [facility] Microbiolog Culture: 10/24 [facility] y [facility] CHEMISTRY Lactic Acid 0.6 0.5 - 2.2 10/23 Normal [facility] Lvl /2012 Medical Center Microbiolog Culture: 10/23 [facility] y Blood [facility] CHEMISTRY POC A Source ART 10/23 NA Medical Center CHEMISTRY POC A PO2 144 80 - 100 10/23 HI [facility] CHEMISTRY POC A Temp 37.0 10/23 NA Medical [place] CHEMISTRY POC A pH 7.35 7.35 - 10/23 LOW [place] 7.45 Medical Center CHEMISTRY POC A Glu 159 70 - 99 10/23 HI [facility] CHEMISTRY POC A BE -5 -2-2 - 2 10/23 LOW [facility] CHEMISTRY POC A O2 Sat 99.0 95.0 - 10/23 Normal [place] 100.0 Medical Center CHEMISTRY POC A Hct 35.0 36.0 - 10/23 LOW [place] 48.0 Medical Center CHEMISTRY POC A HCO3 20 22 - 26 10/23 LOW [facility] CHEMISTRY POC A PCO2 36 35 - 45 10/23 Normal [facility] CHEMISTRY POC A LA 0.6 0.5 - 2.2 10/23 Normal [facility] CHEMISTRY POC A Ca Ion 1.20 1.16 - 10/23 Normal [facility] 1.30 Medical Center CHEMISTRY POC A Na 133 135 - 145 10/23 LOW [facility] CHEMISTRY POC A K 3.8 3.5 - 5.1 10/23 Normal [facility] CHEMISTRY A/G Ratio 0.8 0.7 - 1.6 10/23 Normal [facility] CHEMISTRY AST 90 0 - 37 10/23 HI [facility] CHEMISTRY Globulin 3.9 2.0 - 4.0 10/23 Normal [facility] CHEMISTRY B/C Ratio 16 6 - 25 10/23 Normal [facility] CHEMISTRY Total Protein 7.2 6.4 - 8.4 10/23 Normal [facility] CHEMISTRY Bili Total 0.5 0.2 - 1.3 10/23 Normal [facility] CHEMISTRY Albumin Lvl 3.3 3.5 - 5.0 10/23 LOW Medical [place] CHEMISTRY Alk Phos 94 39 - 136 10/23 Normal [facility] CHEMISTRY ALT 23 0 - 65 10/23 [facility] CHEMISTRY Osmolality 292 280 - 300 10/23 Normal [facility] CHEMISTRY Myoglobin 128 25 - 72 10/23 [facility] Microbiolog Culture: 10/23 [facility] Center Screen BACTERIAL - MRSA by PCR Positive 1, 2 10/23 ABN <sup>1</sup>R [facility] SEROLOGY *ABN* /2012 esult Medical (10/23/2012 11:37:00) Comment: Center "Significant Findings called to Say at 0124 10/24/12 by Katelyn Bell Read Back OK."
<sup >2</sup>Inter pretive Data: Interpretive Data: The [employer] Light[employer] MRSA assay is a qualitative test for the direct detection of nasal colonization with methicillin-r esistant Staphylococcu s aureus (MRSA) to aid in the prevention and control of MRSA infections in healthcare settings. A positive result does not indicate an infection or require treatment. A negative result does not exclude colonization or infection.

The polymerase chain reaction (PCR) assay detects a proprietary sequence indicative of the integration of the SCCmec cassette into the Staphylococcu s aureus chromosome, indicating the presence of MRSA DNA. The assay utilizes FDA cleared IVD reagents. Performance characteristi cs have been verified by the Molecular Diagnostic Laboratory within the [facility]. The Molecular Diagnostic Laboratory is authorized under the Clinical Laboratory Improvement Amendment of 1988 (CLIA-88) to perform high complexity testing. CHEMISTRY Osmolality 309 280 - 300 10/23 [facility] CHEMISTRY POC A Hct 37.0 36.0 - 10/23 [facility] 48.0 [facility] CHEMISTRY POC A Na 129 135 - 145 10/23 LOW [facility] CHEMISTRY POC A LA 1.0 0.5 - 2.2 10/23 [facility] CHEMISTRY POC A K 4.5 3.5 - 5.1 10/23 [facility] CHEMISTRY POC A Glu >425 70 - 99 10/23 [facility] CHEMISTRY POC A Ca Ion 1.18 1.16 - 10/23 [facility] 1.30 /2012 [facility] CHEMISTRY POC A PCO2 30 35 - 45 10/23 CRIT [facility] CHEMISTRY POC A PO2 123 80 - 100 10/23 [facility] Medical Center CHEMISTRY POC A Temp 37.0 10/23 NA Medical Center CHEMISTRY POC A HCO3 14 22 - 26 10/23 LOW [facility] CHEMISTRY POC A Source ART 10/23 NA Medical [place] CHEMISTRY POC A pH 7.27 7.35 - 10/23 LOW [facility] 7.45 Medical Center CHEMISTRY POC A BE -12 -2-2 - 2 10/23 LOW [facility] CHEMISTRY POC A O2 Sat 98.0 95.0 - 10/23 Normal [place] 100.0 Medical Center CHEMISTRY Bili Direct 0.4 0.0 - 0.3 10/23 HI [facility] CHEMISTRY Lipase Lvl 54 73 - 393 10/23 LOW [facility] CHEMISTRY Amylase Lvl 28 25 - 115 10/23 Normal [facility] CHEMISTRY B/C Ratio 10 6 - 25 10/23 Normal [facility] BLOOD BANK Antibody Scrn Negative 10/23 Normal [facility] RESULTS (10/23/2012 01:00:00) Medical Center BLOOD BANK ABO/Rh A POS 10/23 Unknown [facility] Center URINALYSIS UA 0.1 - 1.0 10/23 NA [facility] Urobilinogen /2012 Medical Center URINALYSIS UA Sq Epi Moderate /LPF Few 10/23 ABN [facility] *ABN* /2012 Medical (10/23/2012 00:01:00) Center URINALYSIS UA Leuk Est Negative Negative 10/23 Normal [facility] (10/23/2012 00:01:00) Medical Center URINALYSIS UA Nitrite Negative Negative 10/23 Normal [facility] (10/23/2012 00:01:00) Medical Center URINALYSIS UA Blood Negative Negative 10/23 Normal [facility] (10/23/2012 00:01:00) Medical Center URINALYSIS UA Glucose >=1000 mg/dL Negative 10/23 ABN [facility] *ABN* Medical (10/23/2012 00:01:00) Center URINALYSIS UA Protein 10 mg/dL Negative 10/23 ABN [facility] *ABN* Medical (10/23/2012 00:01:00) Center URINALYSIS UA pH 5.0 5.0 - 8.0 10/23 Normal Medical [facility] URINALYSIS UA WBC 1 0 - 5 10/23 Normal [facility] URINALYSIS UA Bili Negative Negative 10/23 NA [facility] *NA* Medical (10/23/2012 00:01:00) Center URINALYSIS UA Ketones >=150 mg/dL Negative 10/23 ABN [facility] *ABN Medical (10/23/2012 00:01:00) Center URINALYSIS UA Spec Grav 1.015 <=1.030 10/23 Normal [facility] URINALYSIS UA Turbidity Clear Clear 10/23 Normal [facility] (10/23/2012 00:01:00) Medical Center URINALYSIS UA Color Light Yellow Yellow 10/23 NA [facility] *NA* Medical (10/23/2012 00:01:00) Center BEDSIDE Gluc POC 265 70 - 99 10/08 [place] <sup>1</sup>I [facility] GLUCOSE [facility] nterpretive Medical TESTING Data: Center Upper Reportable Limit: 200 mg/dL. BEDSIDE Comment1 Notify 10/08 NA [facility] GLUCOSE RN/MD /2012 Medical TESTING Center BEDSIDE Comment1 Notify 10/08 NA [facility] GLUCOSE RN/MD /2012 Medical TESTING Center BEDSIDE Gluc POC 204 70 - 99 10/08 [place] <sup>2</sup>I [facility] GLUCOSE [facility] nterpretive Medical TESTING Data: Center Upper Reportable Limit: 200 mg/dL. CHEMISTRY Phosphorus 2.7 2.5 - 4.5 10/08 Normal [facility] CHEMISTRY Magnesium Lvl 1.6 1.8 - 2.4 10/08 LOW [facility] CHEMISTRY Ca Ion 1.17 1.16 - 02 Normal [facility] 1. [facility] CHEMISTRY Ca Norm 1.18 1.16 - 02 Normal [facility] 1. [facility] CHEMISTRY Ca Ion mgdL 4.68 4.65 - 10/08 Normal [facility] 5. [facility] CHEMISTRY Ca Norm mgdL 4.72 4.65 - 10/08 Normal [facility] 5. [facility] CHEMISTRY AGAP 17.6 10.0 - 10/08 Normal [facility] 20.0 [facility] CHEMISTRY eGFR 109 10/08 NA <sup>4</sup>R esult Medical Comment: The Center eGFR is calculated using the CKD-EPI formula. In most young, healthy individuals the eGFR will be >90 mL/min/1.73m2 . The eGFR declines with age. An eGFR of 60-89 may be normal in some populations, particularly the elderly, for whom the CKD-EPI formula has not been extensively validated. Use of the eGFR is not recommended in the following populations:& lt;br/>
I ndividuals with unstable creatinine concentration s, including patients and those with serious co-morbid conditions.<b r/>
Patie nts with extremes in muscle mass or diet.

The data above are obtained from the National Kidney Disease Education Program (NKDEP) which additionally recommends that when the eGFR is used in patients with extremes of body mass index for purposes of drug dosing, the eGFR should be multiplied by the estimated BMI. CHEMISTRY CO2 24 24 - 32 10/08 Normal [facility]2012 [facility] CHEMISTRY Calcium Lvl 8.5 8.5 - 10.5 10/08 [facility]2012 [facility] CHEMISTRY Potassium Lvl 3.6 3.5 - 5.1 10/08 Normal [facility]2012 [facility] CHEMISTRY Chloride Lvl 96 95 - 109 10/08 Normal [facility]2012 [facility] CHEMISTRY Creatinine 0.6 0.5 - 1.4 10/[address] [facility]2012 [facility] CHEMISTRY Sodium Lvl 134 135 - 145 10/[address] CHEMISTRY Glucose Lvl 129 70 - 99 10/08 [place] <sup>7</sup>I nterpretive Medical Data: Adult Center reference range values reflect the clinical guidelines
of the [place] [employer]. CHEMISTRY BUN 4 7 - 22 10/08 LOW [facility]2012 [facility] HEMATOLOGY Monocytes # 1.1 0.0 - 0.8 10/08 HI [facility]2012 [facility] HEMATOLOGY Eosinophils # 0.3 0.0 - 0.5 10/08 [facility]2012 [facility] HEMATOLOGY Basophils # 0.1 0.0 - 0.2 10/08 [facility]2012 [facility] HEMATOLOGY Microcyte 1+ None Seen 10/08 Psychiatric *ABN* /2012 Medical (10/08/2012 03:57:00) Center HEMATOLOGY Segs 55.7 45.0 - 10/08 [facility] 75.0 /2012 [facility] HEMATOLOGY Lymphocytes 31.3 20.0 - 02/ Normal [place] 40.0 /2012 [facility] HEMATOLOGY Monocytes 10.0 2.0 - 12.0 02/ Normal [facility] HEMATOLOGY Eosinophils 2.5 0.0 - 4.0 02/ Normal [facility] HEMATOLOGY Segs-Bands # 6.1 1.5 - 8.1 02/ Normal [facility] HEMATOLOGY Basophils 0.5 0.0 - 1.0 02/ Normal /2012 [facility] HEMATOLOGY Lymphocytes # 3.4 1.0 - 5.5 02/ Normal [facility] HEMATOLOGY RDW 16.9 11.5 - 02/ [facility] 14.5 /2012 [facility] HEMATOLOGY Platelet 218 133 - 450 02/ Normal /2012 [facility] HEMATOLOGY WBC 10.9 3.7 - 10.4 02/ [facility] HEMATOLOGY RBC 4.35 4.20 - 02 Normal [facility] 5.40 [facility] HEMATOLOGY MPV 9.7 7.4 - 10.4 02/ Normal [facility] HEMATOLOGY Hgb 10.4 12.0 - 02/ LOW [facility] 16.0 /2012 [facility] HEMATOLOGY Hct 32.7 36.0 - 02/ [facility] 48.0 /2012 [facility] HEMATOLOGY MCHC 31.8 32.0 - 02/ [facility] 36.0 /2012 [facility] HEMATOLOGY MCV 75.2 81.0 - 02/ [facility] 99.0 /2012 [facility] HEMATOLOGY MCH 23.9 27.0 - 02/ [facility] 31.0 /2012 [facility] BEDSIDE Comment1 Notify 10/08 NA [facility] GLUCOSE RN/MD /2012 Medical TESTING Center BEDSIDE Gluc POC 247 70 - 99 10/08 [place] <sup>3</sup>I [facility] GLUCOSE [facility] /2012 nterpretive Medical TESTING Data: Center Upper Reportable Limit: 200 mg/dL. CHEMISTRY Magnesium Lvl 2.1 1.8 - 2.4 10/07 Normal [facility] CHEMISTRY Ca Norm 1.16 1.16 - 02 [facility] 1.30 [facility] CHEMISTRY Ca Ion mgdL 4.72 4.65 - 02 [facility] 5.20 [facility] CHEMISTRY Ca Norm mgdL 4.64 4.65 - 10/07 [facility] 5.20 [facility] CHEMISTRY Ca Ion 1.18 1.16 - 10/07 Normal [facility] 1.30 [facility] CHEMISTRY Phosphorus 2.6 2.5 - 4.5 10/07 Normal [facility] CHEMISTRY Calcium Lvl 8.1 8.5 - 10.5 10/07 [facility] CHEMISTRY AGAP 19.4 10.0 - 10/07 Normal [facility] 20.0 [facility] CHEMISTRY eGFR 116 10/07 NA <sup>5</sup>R esult Medical Comment: The Center eGFR is calculated using the CKD-EPI formula. In most young, healthy individuals the eGFR will be >90 mL/min/1.73m2 . The eGFR declines with age. An eGFR of 60-89 may be normal in some populations, particularly the elderly, for whom the CKD-EPI formula has not been extensively validated. Use of the eGFR is not recommended in the following populations:& lt;br/>
I ndividuals with unstable creatinine concentration s, including patients and those with serious co-morbid conditions.<b r/>
Patie nts with extremes in muscle mass or diet.

The data above are obtained from the National Kidney Disease Education Program (NKDEP) which additionally recommends that when the eGFR is used in patients with extremes of body mass index for purposes of drug dosing, the eGFR should be multiplied by the estimated BMI. CHEMISTRY BUN 6 7 - 22 10/07 [facility] CHEMISTRY Glucose Lvl 99 70 - 99 10/07 Normal <sup>8</sup>I nterpretive Medical Data: Adult Center reference range values reflect the clinical guidelines
of the [place] [employer]. CHEMISTRY Creatinine 0.5 0.5 - 1.4 10/07 Normal [facility] Lvl [facility] CHEMISTRY Potassium Lvl 3.4 3.5 - 5.1 10/07 LOW [facility] CHEMISTRY Sodium Lvl 135 135 - 145 10/07 Normal [facility] CHEMISTRY CO2 24 24 - 32 10/07 Normal [facility] CHEMISTRY Chloride Lvl 95 95 - 109 10/07 Normal [facility] HEMATOLOGY MCHC 31.8 32.0 - 02/ [facility] [place] 36.0 /2012 [facility] HEMATOLOGY MCH 24.1 27.0 - 02/ [facility] [place] 31.0 [facility] HEMATOLOGY MCV 75.7 81.0 - 02 [facility] 99.0 /2012 [facility] HEMATOLOGY Hct 31.0 36.0 - 02/ [facility] [place] 48.0 /2012 [facility] HEMATOLOGY Hgb 9.9 12.0 - 02 [facility] [place] 16.0 /2012 [facility] HEMATOLOGY MPV 9.1 7.4 - 10.4 02 Normal [facility] HEMATOLOGY Platelet 222 133 - 450 02 Normal [facility] HEMATOLOGY RDW 16.8 11.5 - 02 [facility] 14.5 /2012 [facility] HEMATOLOGY RBC 4.10 4.20 - 10/07 [facility] 5.40 /2012 [facility] HEMATOLOGY WBC 13.8 3.7 - 10.4 10/07 [facility] HEMATOLOGY Segs-Bands # 9.6 1.5 - 8.1 02 [facility] HEMATOLOGY Basophils 0.3 0.0 - 1.0 02 Normal [facility] HEMATOLOGY Eosinophils 1.0 0.0 - 4.0 02 Normal [facility] HEMATOLOGY Microcyte 1+ None Seen 10/07 [facility] *ABN* /2012 Medical (10/07/2012 03:25:00) [place] HEMATOLOGY Lymphocytes # 2.9 1.0 - 5.5 02 Normal [facility] HEMATOLOGY Eosinophils # 0.1 0.0 - 0.5 02 Normal [facility] HEMATOLOGY Monocytes # 1.2 0.0 - 0.8 02 [facility] HEMATOLOGY Monocytes 8.8 2.0 - 12.0 02 [facility] HEMATOLOGY Lymphocytes 20.8 20.0 - 02 [facility] [place] 40.0 [facility] HEMATOLOGY Segs 69.1 45.0 - 02 Normal [place] 75.0 /2012 [facility] URINALYSIS UA Glucose 500mg/dL 10/06 NA [facility] URINALYSIS UA 0.1 - 1.0 10/06 NA [facility] Urobilinogen /2012 [facility] URINALYSIS Micro? Performed 10/06 NA [facility] *NA* Medical (10/06/2012 11:42:00) Center URINALYSIS UA Maribel Yeast Moderate /HPF None [facility] Center URINALYSIS UA RBC 3 0 - 2 10/06 [place] [facility] URINALYSIS UA Bacteria Many /HPF None [facility] 10[facility] (10[facility]/2012 11:42:00) Center URINALYSIS UA WBC 3 0 - 5 10/06 Normal [facility] URINALYSIS UA Leuk Est Negative Negative 10/06 Normal [facility] (10/06/2012 11:42:00) Medical Center URINALYSIS UA Nitrite Negative Negative 10/06 Normal [facility] (10/06/2012 11:42:00) [facility] URINALYSIS UA Sq Epi Many /LPF Few 10/06 [facility] Medical (10/06/2012 11:42:00) Center [facility]YSIS [facility] Bili Negative [facility] Center URINALYSIS UA Blood Negative Negative 10/06 Normal [facility] (10/06/2012 11:42:00) [facility] URINALYSIS UA pH 5.5 5.0 - 8.0 10/06 Normal [facility] URINALYSIS UA Protein 20 mg/dL Negative 10/06 [facility]2012 11:42:00[facility] Center URINALYSIS UA Ketones >=150 mg/dL Negative 10/06 ABN [facility]* Medical (10/06/2012 11:42:00) Center URINALYSIS UA Color Yellow Yellow 10/06 [facility]10[facility]2012 11:42:00) Center URINALYSIS UA Turbidity Slight Clear 10/06 [facility]10[facility]2012 11:42:00[facility] Center URINALYSIS UA Spec Grav 1.011 <=1.030 10/06 Normal [facility] URINALYSIS UA Mucus Few /LPF None Seen 10/06 NA [facility] *NA* /2012 Medical (10/06/2012 11:42:00) Center Microbiolog Culture: 10/06 [facility] y Urine [facility] CHEMISTRY Phosphorus 2.5 2.5 - 4.5 10/06 Normal [facility] CHEMISTRY Magnesium Lvl 1.5 1.8 - 2.4 10/06 LOW [facility] CHEMISTRY eGFR 76 10/06 NA <sup>6</sup>R esult Medical Comment: The Center eGFR is calculated using the CKD-EPI formula. In most young, healthy individuals the eGFR will be >90 mL/min/1.73m2 . The eGFR declines with age. An eGFR of 60-89 may be normal in some populations, particularly the elderly, for whom the CKD-EPI formula has not been extensively validated. Use of the eGFR is not recommended in the following populations:& lt;br/>
I ndividuals with unstable creatinine concentration s, including patients and those with serious co-morbid conditions.<b r/>
Patie nts with extremes in muscle mass or diet.

The data above are obtained from the National Kidney Disease Education Program (NKDEP) which additionally recommends that when the eGFR is used in patients with extremes of body mass index for purposes of drug dosing, the eGFR should be multiplied by the estimated BMI. CHEMISTRY Potassium Lvl 3.9 3.5 - 5.1 10/06 Normal [facility] CHEMISTRY Chloride Lvl 97 95 - 109 10/06 Normal [facility] CHEMISTRY Calcium Lvl 8.3 8.5 - 10.5 10/06 LOW [facility] CHEMISTRY CO2 22 24 - 32 10/06 [facility] CHEMISTRY Glucose Lvl 234 70 - 99 10/06 [place] <sup>9</sup>I nterpretive Medical Data: Adult Center reference range values reflect the clinical guidelines
of the [place] [employer]. CHEMISTRY Creatinine 0.9 0.5 - 1.4 10/06 Normal [facility] CHEMISTRY BUN 9 7 - 22 10/06 Normal [facility] CHEMISTRY Sodium Lvl 134 135 - 145 10/06 LOW [facility] CHEMISTRY AGAP 18.9 10.0 - 01/31 Normal [place] 20.0 /2012 [facility] HEMATOLOGY Segs-Bands # 13.3 1.5 - 8.1 10/06 [facility] HEMATOLOGY Basophils 0.2 0.0 - 1.0 10/06 Normal [facility] HEMATOLOGY Eosinophils 0.1 0.0 - 4.0 10/06 Normal [facility] HEMATOLOGY Monocytes 6.7 2.0 - 12.0 10/06 Normal [facility] HEMATOLOGY Segs 81.7 45.0 - 10/06 [facility] [place] 75.0 /2012 [facility] HEMATOLOGY Lymphocytes 11.3 20.0 - 10/06 [facility] [place] 40.0 /2012 [facility] HEMATOLOGY Microcyte 1+ None Seen 10/06 [facility] [place] *ABN* /2012 Medical (10/06/2012 04:25:00) [place] HEMATOLOGY Monocytes # 1.1 0.0 - 0.8 10/06 [facility] HEMATOLOGY Lymphocytes # 1.8 1.0 - 5.5 10/06 Normal [facility] HEMATOLOGY RBC 4.28 4.20 - 10/06 Normal [place] 5.40 /2012 [facility] HEMATOLOGY WBC 16.3 3.7 - 10.4 10/06 [facility] HEMATOLOGY Hgb 10.3 12.0 - 10/06 [facility] [place] 16.0 /2012 [facility] HEMATOLOGY Hct 32.6 36.0 - 10/06 [facility] [place] 48.0 /2012 Medical Center HEMATOLOGY MCH 24.0 27.0 - 10/06 [facility] [place] 31.0 /2012 [facility] HEMATOLOGY MCV 76.1 81.0 - 10/06 [facility] [place] 99.0 /2012 Medical Center HEMATOLOGY MCHC 31.5 32.0 - 10/06 [facility] [place] 36.0 /2012 Medical Center HEMATOLOGY RDW 17.2 11.5 - 10/06 [facility] [place] 14.5 /2012 [facility] HEMATOLOGY Platelet 248 133 - 450 10/06 Normal [facility] HEMATOLOGY MPV 9.5 7.4 - 10.4 10/06 [facility] CHEMISTRY Ca Norm 1.07 1.16 - 10/05 [facility] [place] 1.30 [facility] CHEMISTRY Ca Ion mgdL 4.36 4.65 - 10/05 [facility] [place] 5.20 [facility] CHEMISTRY Ca Norm mgdL 4.28 4.65 - 10/05 LOW [place] 5.20 [facility] CHEMISTRY Ca Ion 1.09 1.16 - 10/05 LOW [facility] 1.30 [facility] HEMATOLOGY Basophils # 0.1 0.0 - 0.2 10/05 Normal [facility] HEMATOLOGY Eosinophils # 0.1 0.0 - 0.5 10/05 Normal [facility] CHEMISTRY U Preg Negative Negative 10/03 Normal [facility] (10/03/2012 06:31:00) [facility] BLOOD BANK ABO/Rh A POS 10/03 Unknown [facility] RESULTS /2012 [facility] BLOOD BANK Antibody Scrn Negative 10/03 Normal [facility] RESULTS (10/03/2012 06:00:00) [facility] CHEMISTRY Total Protein 7.8 6.4 - 8.4 09/23 Normal [facility] CHEMISTRY AST 31 0 - 37 09/23 Normal [facility] CHEMISTRY Bili Total 0.3 0.2 - 1.3 09/23 Normal [facility] CHEMISTRY ALT 50 0 - 65 09/23 Normal [facility] CHEMISTRY Albumin Lvl 3.6 3.5 - 5.0 09/23 Normal [facility] CHEMISTRY Alk Phos 150 39 - 136 09/23 HI [facility] CHEMISTRY B/C Ratio 21 6 - 25 09/23 Normal [facility] CHEMISTRY Globulin 4.2 2.0 - 4.0 09/23 HI [facility] CHEMISTRY A/G Ratio 0.9 0.7 - 1.6 09/23 Normal [facility] HEMATOLOGY Hypochrom Slight None Seen 09/23 Normal [facility] (09/23/2012 12:35:00) [facility] HEMATOLOGY Elliptocyte Slight None Seen 09/23 ABN [facility] *ABN* /2012 Medical (09/23/2012 12:35:00) Center HEMATOLOGY Basophils # 0.1 0.0 - 0.2 09/23 Normal [facility] HEMATOLOGY Plt Morph Normal 09/23 Normal [facility] (09/23/2012 12:35:00) [facility] URINALYSIS UA 0.1 - 1.0 09/23 NA [facility] Urobilinogen /2012 [facility] URINALYSIS UA Nitrite Negative Negative 09/23 Normal [facility] (09/23/2012 12:35:00) Medical Center URINALYSIS UA Blood Negative Negative 09/23 Normal [facility] (09/23/2012 12:35:00) Medical Center URINALYSIS UA Leuk Est Negative Negative 09/23 Normal [facility] (09/23/2012 12:35:00) Medical Center URINALYSIS Micro? Not Indicated 09/23 NA [facility] (09/23/2012 12:35:00) Center URINALYSIS UA Ketones Negative mg/dL Negative 09/23 NA [facility] * [facility] (09/23/2012 12:35:00) Center URINALYSIS UA Bili Negative Negative 09/23 [facility] (09/23/2012 12:35:00) Center URINALYSIS UA Protein Negative mg/dL Negative 09/23 Normal [facility] (09/23/2012 12:35:00) Medical Center URINALYSIS UA pH 5.0 5.0 - 8.0 09/23 Normal Medical Center URINALYSIS UA Glucose Negative mg/dL Negative 09/23 NA [facility] (09/23/2012 12:35:00) Center URINALYSIS UA Color Light Yellow Yellow 09/23 NA [facility] (09/23/2012 12:35:00) Center URINALYSIS UA Spec Grav 1.004 <=1.030 09/23 Normal [facility] URINALYSIS UA Turbidity Clear Clear 09/23 Normal [facility] (09/23/2012 12:35:00) Medical Center BEDSIDE Gluc POC 153 70 - 99 06/28 [place] <sup>1</sup>I [facility] GLUCOSE Lifscn nterpretive Medical TESTING Data: Center Upper Reportable Limit: 200 mg/dL. CHEMISTRY U Preg Negative Negative 06/28 Normal [facility] (06/28/2012 07:27:00) Medical Center Pathology Reports No Data Provided for This Section Diagnostic Reports Report Value Date Source Abdomen/Pelvis w EXAM: CT ABDOMEN WITH CONTRAST 07/12/2013 [facility] Medical contrast CT EXAM: CT PELVIS WITH CONTRAST Center DATE: 07/12/2013 at 0720 hours COMPARISON: CT abdomen and pelvis 11/13/2012 and [...] can be correlated for symptoms of diarrhea. Abdomen 2 views EXAM: XR ABDOMEN 1 VIEW 04/03/2013 [facility] DATE: March 25 90,013. INDICATION: Nausea. COMPARISON: November 16, 2012. TECHNIQUE: Two radiograph provided for interpretation. FINDINGS: Lower thorax is unremarkable where visualized. The bowel gas pattern is nonobstructive. Surgical sutures are noted in the left upper quadrant with surgical clips in the right upper quadrant. No suspicious calcifications found. No worrisome skeletal abnormalities. IMPRESSION: 1. No abdominal abnormalities. Interpreted by Carissa Cho MD. Chest 1view EXAM: XR CHEST 1 VIEW 04/02/2013 [facility] DATE: 2013-04-02 1638 hours INDICATION: Chest pain COMPARISON: March 07, 2013 TECHNIQUE: Single AP view of the chest DISCUSSION: There is scattered subsegmental atelectasis bilaterally, otherwise no pulmonary or pleural based abnormality is identified. The cardiomediastinal silhouette is normal for technique. No acute bony abnormality is identified. IMPRESSION: Mild, scattered subsegmental atelectasis. Otherwise no acute cardiopulmonary mallet. Chest 1view EXAM: CHEST 1 VIEW 03/07/2013 [facility] DATE: Mar 07, 2013 07:45:00 AM INDICATION: Tube placement/removal/reposition COMPARISON: Chest x-ray March [...] over the SVC at T4. No pneumothorax. Chest 2 views EXAM: CHEST 2 VIEWS 03/06/2013 [facility] DATE: Mar 06, 2013 06:47:00 PM INDICATION: Chest pain COMPARISON: Chest one view [...] opacity. 2. Trace posterior left pleural effusion. Consultation Notes No Data Provided for This Section Discharge Summaries No Data Provided for This Section History and Physicals No Data Provided for This Section Vital Signs Vital Sign Value Date Comments Source Systolic (mm Hg) 124 08/13/2013 [facility] Respitory Rate 18 08/13/2013 [facility] Temperature Oral (F) 98.8 F 08/13/2013 [facility] Heart Rate 102 08/13/2013 [facility] Diastolic (mm Hg) 46 08/13/2013 [facility] Systolic (mm Hg) 107 08/13/2013 [facility] Respitory Rate 18 08/13/2013 [facility] Diastolic (mm Hg) 63 08/13/2013 [facility] Heart Rate 103 08/13/2013 [facility] Heart Rate 105 08/13/2013 [facility] Respitory Rate 18 08/13/2013 [facility] Systolic (mm Hg) 117 08/13/2013 [facility] Diastolic (mm Hg) 70 08/13/2013 [facility] Weight 81.818 08/13/2013 [facility] Height 162.56 cm 08/13/2013 [facility] Temperature Oral (F) 98.4 F 08/13/2013 [facility] Diastolic (mm Hg) 61 07/15/2013 [facility] Temperature Oral (F) 97.7 F 07/15/2013 [facility] Systolic (mm Hg) 117 07/15/2013 [facility] Respitory Rate 18 07/15/2013 [facility] Heart Rate 90 07/15/2013 [facility] Respitory Rate 18 07/14/2013 [facility] Heart Rate 104 07/14/2013 [facility] Diastolic (mm Hg) 46 07/14/2013 [facility] Systolic (mm Hg) 91 07/14/2013 [facility] Diastolic (mm Hg) 61 07/14/2013 [facility] Systolic (mm Hg) 95 07/14/2013 [facility] Respitory Rate 18 07/14/2013 [facility] Heart Rate 120 07/14/2013 [facility] Temperature Oral (F) 97.5 F 07/14/2013 [facility] Temperature Oral (F) 97.6 F 07/14/2013 [facility] Height 162.56 cm 07/12/2013 [facility] Weight 86.364 07/12/2013 [facility] Temperature Oral (F) 97.1 F 04/03/2013 [facility] Respitory Rate 18 04/03/2013 [facility] Heart Rate 79 04/03/2013 [facility] Diastolic (mm Hg) 66 04/03/2013 [facility] Systolic (mm Hg) 94 04/03/2013 [facility] Diastolic (mm Hg) 28 04/03/2013 [facility] Systolic (mm Hg) 116 04/03/2013 [facility] Respitory Rate 20 04/03/2013 [facility] Heart Rate 100 04/03/2013 [facility] Temperature Oral (F) 97.0 F 04/03/2013 [facility] Height 162.56 cm 04/03/2013 [facility] Weight 90 04/03/2013 [facility] Height 162.56 cm 04/02/2013 [facility] Weight 90 04/02/2013 [facility] Systolic (mm Hg) 132 03/09/2013 [facility] Diastolic (mm Hg) 72 03/09/2013 [facility] Heart Rate 114 03/09/2013 [facility] Temperature Oral (F) 97.7 F 03/09/2013 [facility] Respitory Rate 20 03/09/2013 [facility] Temperature Oral (F) 97.7 F 03/09/2013 [facility] Heart Rate 108 03/09/2013 [facility] Systolic (mm Hg) 143 03/09/2013 [facility] Respitory Rate 18 03/09/2013 [facility] Diastolic (mm Hg) 81 03/09/2013 [facility] Heart Rate 115 03/09/2013 [facility] Diastolic (mm Hg) 70 03/09/2013 [facility] Systolic (mm Hg) 153 03/09/2013 [facility] Respitory Rate 18 03/09/2013 [facility] Temperature Oral (F) 97.5 F 03/09/2013 [facility] Weight 90 03/07/2013 [facility] Height 162.56 cm 03/07/2013 [facility] Height 162.56 cm 03/06/2013 [facility] Weight 90 03/06/2013 [facility] Systolic (mm Hg) 127 12/07/2012 [facility] Diastolic (mm Hg) 49 12/07/2012 [facility] Heart Rate 90 12/07/2012 [facility] Temperature Oral (F) 98.3 F 12/07/2012 [facility] Respitory Rate 18 12/07/2012 [facility] Systolic (mm Hg) 104 12/07/2012 [facility] Temperature Oral (F) 98.6 F 12/07/2012 [facility] Respitory Rate 18 12/07/2012 [facility] Heart Rate 78 12/07/2012 [facility] Diastolic (mm Hg) 57 12/07/2012 [facility] Heart Rate 89 12/07/2012 [facility] Temperature Oral (F) 97.6 F 12/07/2012 [facility] Respitory Rate 18 12/07/2012 [facility] Systolic (mm Hg) 105 12/07/2012 [facility] Diastolic (mm Hg) 51 12/07/2012 [facility] Weight 100 11/29/2012 [facility] Height 162.56 cm 11/29/2012 [facility] Weight 100.568 11/29/2012 [facility] Height 162.56 cm 11/29/2012 [facility] Weight 101.364 11/28/2012 [facility] Height 162.56 cm 11/28/2012 [facility] Diastolic (mm Hg) 55 11/17/2012 [facility] Systolic (mm Hg) 117 11/17/2012 [facility] Diastolic (mm Hg) 70 11/17/2012 [facility] Systolic (mm Hg) 118 11/17/2012 [facility] Diastolic (mm Hg) 61 11/17/2012 [facility] Systolic (mm Hg) 154 11/17/2012 [facility] Temperature Oral (F) 97.8 F 11/17/2012 [facility] Temperature Oral (F) 97.9 F 11/17/2012 [facility] Temperature Oral (F) 98.6 F 11/17/2012 [facility] Height 162.56 cm 11/17/2012 [facility] Weight 103.21 11/17/2012 [facility] Respitory Rate 18 11/17/2012 [facility] Height 162.56 cm 11/16/2012 [facility] Weight 100 11/16/2012 [facility] Diastolic (mm Hg) 58 11/14/2012 [facility] Systolic (mm Hg) 121 11/14/2012 [facility] Respitory Rate 20 11/14/2012 [facility] Heart Rate 84 11/14/2012 [facility] Temperature Oral (F) 98.0 F 11/14/2012 [facility] Respitory Rate 20 11/14/2012 [facility] Systolic (mm Hg) 103 11/14/2012 [facility] Diastolic (mm Hg) 54 11/14/2012 [facility] Temperature Oral (F) 98.0 F 11/14/2012 [facility] Heart Rate 83 11/14/2012 [facility] Diastolic (mm Hg) 68 11/14/2012 [facility] Respitory Rate 20 11/14/2012 [facility] Heart Rate 79 11/14/2012 [facility] Systolic (mm Hg) 136 11/14/2012 [facility] Temperature Oral (F) 98.4 F 11/14/2012 [facility] Height 162.56 cm 11/06/2012 [facility] Weight 100 11/06/2012 [facility] Height 162.56 cm 11/06/2012 [facility] Weight 100 11/06/2012 [facility] Height 162.56 cm 11/06/2012 [facility] Weight 104.545 11/06/2012 [facility] Systolic (mm Hg) 131 11/01/2012 [facility] Diastolic (mm Hg) 62 11/01/2012 [facility] Systolic (mm Hg) 125 11/01/2012 [facility] Diastolic (mm Hg) 62 11/01/2012 [facility] Systolic (mm Hg) 155 10/31/2012 [facility] Diastolic (mm Hg) 54 10/31/2012 [facility] Temperature Oral (F) 99.7 F 10/31/2012 [facility] Temperature Oral (F) 96.7 F 10/31/2012 [facility] Temperature Oral (F) 98.1 F 10/31/2012 [facility] Respitory Rate 19 10/31/2012 [facility] Respitory Rate 19 10/31/2012 [facility] Respitory Rate 19 10/31/2012 [facility] Weight 78.2 10/24/2012 [facility] Heart Rate 126 10/23/2012 [facility] Heart Rate 130 10/23/2012 [facility] Weight 113.636 10/23/2012 [facility] Height 162.56 cm 10/23/2012 [facility] Heart Rate 119 10/23/2012 [facility] Height 162.56 cm 10/23/2012 [facility] Systolic (mm Hg) 123 10/08/2012 [facility] Respitory Rate 19 10/08/2012 [facility] Diastolic (mm Hg) 51 10/08/2012 [facility] Heart Rate 81 10/08/2012 [facility] Temperature Oral (F) 98.8 F 10/08/2012 [facility] Diastolic (mm Hg) 55 10/08/2012 [facility] Respitory Rate 20 10/08/2012 [facility] Systolic (mm Hg) 136 10/08/2012 [facility] Heart Rate 82 10/08/2012 [facility] Temperature Oral (F) 98.9 F 10/08/2012 [facility] Diastolic (mm Hg) 47 10/08/2012 [facility] Systolic (mm Hg) 107 10/08/2012 [facility] Temperature Oral (F) 98.1 F 10/08/2012 [facility] Respitory Rate 18 10/08/2012 [facility] [facility] 75 10/08/2012 [facility] Weight 118.200 10/03/2012 [facility] Height 162.56 cm 10/03/2012 [facility] Weight 118.182 09/23/2012 [facility] Height 162.56 cm 09/23/2012 [facility] Diastolic (mm Hg) 57 06/28/2012 [facility] Heart Rate 104 06/28/2012 [facility] Respitory Rate 18 06/28/2012 [facility] Systolic (mm Hg) 147 06/28/2012 [facility] Systolic (mm Hg) 153 06/28/2012 [facility] Diastolic (mm Hg) 61 06/28/2012 [facility] Respitory Rate 16 06/28/2012 [facility] Systolic (mm Hg) 136 06/28/2012 [facility] Diastolic (mm Hg) 52 06/28/2012 [facility] Respitory Rate 18 06/28/2012 [facility] Temperature Oral (F) 98.5 F 06/28/2012 [facility] Heart Rate 104 06/28/2012 [facility] Weight 118.182 06/14/2012 [facility] Height 162.56 cm 06/14/2012 [facility] Encounters Location Location Encounter Encounter Reason Attending ADM DC Status Source Details Type Number For Provider Date Date Visit [facility] DS [id number] DSU/ WOLFGANG 06/28 Active [facility] REFLUX SUSHILA /2011 Medical [facility] Inpatient [id number] WOLFGANG 10/03 10/08 Discharg [facility] /2012 ed Medical [facility] Inpatient [id number] N/V DARELL 10/23 11/01 Active [facility] DEHYDRAT SDRINGOLA- /2012 Medical [place] ION MARANGA [facility] Inpatient [id number] LAVONE 11/05 11/[address] [facility] /2012 ed Medical [facility] OU [id number] CHIP 11/16 11/17 Discharg [facility] MARKUS /2012 ed Medical [facility] Inpatient [id number] JUAN J 11/29 12/07 Discharg [facility] BRANDO /2012 ed [facility] OU [id number] SANJUANA 03/07 03/09 Discharg [facility] OSUAGWU /2012 ed Medical [facility] OU [id number] JEANNIE 04/02 04/03 Discharg [facility] ADOLFO /2012 ed [facility] OU [id number] GASTROPA JEANNIE 07/12 07/14 Active [facility] ADOLFO /2012 Medical [facility] JACKIE [id number] WOLFGANG 07/26 07/27 Discharg [facility] SUSHILA /2012 ed Medical [facility] Emergency [id number] KATELYN 08/13 08/13 Discharg [facility] BUBLEWICZ /[facility] Outpatient [id number] SERGO WHITFIELD Cancel [facility] Procedures Procedure Code Date Perfomer Comments Source section [id number] [facility] Cholecystectomy [id number] [facility] <sup>1</sup> [facility] Hand repair [id number], x'2 [facility] <sup>2</sup> [facility] Tonsillectomy [id number] 68560 [facility] [place] <sup>3</sup> [facility] Bypass of stomach [id number] [facility] Rotator cuff repair [id number] [facility] Heart procedure [id number] 1cardiac [facility] <sup>1</sup> stent for [facility] Assessment and Plan No Data Provided for This Section Plan of Care No Data Provided for This Section Social History No Data Provided for This Section Family History No Data Provided for This Section Advance Directives No Data Provided for This Section Functional Status No Data Provided for This Section
--- OUTSIDE RECORDS SUMMARY | 2019-03-07 23:54 | XMS REPORT | CCD ---
:1965 Author Organization [facility] Care Team Providers Name Role Phone Sukhwinder [...]
--- OUTSIDE RECORDS SUMMARY | 2019-03-07 23:55 | XMS REPORT | CCD ---
:1965 Author Organization [facility] Care Team Providers Name Role Phone Sukhwinder Renteria Referring Provider Allergies, Adverse Reactions, Alerts Substance Reaction Status NKDA Active Problem List Condition Effective Dates Status Acid reflux Resolved Anemia Resolved Anxiety Resolved Arthritis Resolved Depression Resolved Diabetes mellitus type 1 Resolved Edema of lower extremity Resolved Fibromyalgia Resolved Hyperlipidemia Resolved Hypertension Resolved Medications Medication Instructions Start Date End Date Status Lane 325 mg-10 mg / 15 mL, Route: [...] Duration: 30 day, Stop date: 11/02/12 10:59:00 Lane 325 mg-10 mg / 30 mL, Route: PO, 10/04/2012 10/05/2012 Discontinued 15 mL oral solution Drug Form: SOLN, Dosing Weight 118.2, kg, Q4H, PRN Pain Score 6-10, Start date: 10/04/12 17:20:00, Duration: 30 day, Stop date: 11/03/12 17:19:00 Lane 325 mg-10 mg / 15 mL, Route: [...] 14:28:00, PRN Blood Glucose Results Blistex Lip [place] Route: TOP, Dosing 10/06/2012 10/06/2012 Deleted Weight [...] /LPF] Few /LPF *NA* (10/06/2012 11:42:00) UA Geff Yeast [None Seen /HPF] Moderate /HPF *ABN* [...] values reflect the clinical guidelines of the [place] [employer].8Interpretive Data: Adult reference range values reflect the clinical guidelines of the [place] [employer].9Interpretive Data: Adult reference range values reflect the clinical guidelines of the [place] [employer].HEMATOLOGY Most recent to oldest 1 [...] Catch FREE TEXT SOURCE: FINAL REPORTS Final Cwrkfu99,000 - 50,000 CFU/mL Enterococcus SpeciesPRELIMINARY REPORTS Preliminary Cecjun62,000 - 50,000 CFU/ mL Enterococcus Species ; Sensitivity PendingSUSCEPTIBILITY REPORT ENTERO Antibiotic INTERP. VDIL Ampicillin S Levofloxacin S Nitrofurantoin S Tetracycline R Vancomycin S Procedures Procedures Date Related Diagnosis section Cholecystectomy 1 Hand repair 2 Tonsillectomy 3 , [id number]
--- OUTSIDE RECORDS SUMMARY | 2019-03-07 23:56 | XMS REPORT | CCD ---
:1965 Author Organization [facility] Care Team Providers Name Role Phone Milton Arabella Ruelas Consulting Provider Ezio Sifuentes Consulting Provider Allergies, Adverse Reactions, Alerts Substance Reaction Status NKDA Active Problem List Condition Effective Dates Status Acid reflux Resolved Anemia Resolved Anxiety Resolved Arthritis Resolved Depression Resolved Diabetes mellitus type 1 Resolved Edema of lower extremity Resolved Fibromyalgia Resolved Hyperlipidemia Resolved Hypertension Resolved MRSA1, 2 10/23/2012 Active 1nares 10/23/201221097Iyonvks added by Discern Expert. Medications Medication Instructions [...] Duration: 30 day, Stop date: 12/06/12 1:48:00 [place] 5/325 oral tablet 1 tab, PO, Q6H, [...] Duration: 30 day, Stop date: 12/08/12 10:44:00 [place] 5/325 oral tablet 1 tab, Route: PO, [...] INJ, Q2H, Dosing Weight 100, kg, Total wpym=6848 mg, Start date: 11/14/12 8:00:00, Duration: 2 [...] 11/08/2012 11/08/2012 Canceled PO, Drug form: TAB, EDIT91Q, Dosing Weight 100, kg, Start date: 11/08/12 [...] [Negative] Negative 1 (11/12/2012 21:54:26) 1Interpretive Data: [employer] Clostridium difficile assay utilizes loop-mediated isothermalDNA amplification (LAMP) technology to detect a 204 bp region of the tcdA gene within the PaLoc genesegment present in all known toxigenic C. difficile strains. The assay utilizes FDA cleared IVD reagents. Performance characteristics have been verified by the Molecular Diagnostic Laboratory within the [facility]. The Molecular Diagnostic Laboratory is [...] values reflect the clinical guidelines of the [place] [employer].10Interpretive Data: Adult reference range values reflect the clinical guidelines of the [place] [employer].11Result Comment: rechecked Critical Result (s) called leslie Conner Rose at 11/12/2012 02:56:37 CONTENT DEVELOPER by_mgm. Read back OK.12Interpretive Data: Adult reference range values reflect the clinical guidelines of the [place] [employer].13Result Comment: Critical Result(s) called to [...] 10.0 240 Poor Control, take action to qmnth55Paibaq Comment : Critical Result(s) called leslie Rose [...] Catch FREE TEXT SOURCE: FINAL REPORTS Final [place]87,000 - 100,000 CFU/mL Enterococcus SpeciesPRELIMINARY REPORTS Preliminary Jbtudc18,000 - 100,000 CFU/ mL Enterococcus Species Identification And Sensitivity PendingSUSCEPTIBILITY REPORT ENTERO Antibiotic INTERP. VDIL Ampicillin S Levofloxacin S Nitrofurantoin S Tetracycline R Vancomycin S
--- OUTSIDE RECORDS SUMMARY | 2019-03-07 23:58 | XMS REPORT | CCD ---
[...] Hypertension Resolved MRSA1, 2 10/23/2012 Active 1nares 10/23/201292429Rwszmer added by Discern Expert. Medications Medication Instructions [...] 1 doses or times, Dose= 2.2ml/kg, Max svur=501sz -- "To be infused by Radiology Staff ONLY" 201211/16/2012 Discontinued Dose=2.2ml/kg, Max pdzk=044wm -- "To be infused by Radiology Staff ONLY" calcium gluconate + Sodium 2,000 mg, 20 mL, Route: 11/17/2012 11/17/2012 Completed Chloride 0.9% IV 80 mL IVPB, ONCE, Dosing Weight 103.21, kg, Start date: 11/17/12 11:02:00, Stop date: 11/17/12 11:02:00 enoxaparin 40 mg, 0.4 mL, Route: 11/16/2012 11/17/2012 Discontinued SUB-Q, Drug form: INJ, [id number], Dosing Weight 100, kg, Start date: 11/16/12 [...] date: 11/16/12 13:40:00, Stop date: 11/16/12 13:40:00 [place] 5/325 oral tablet 1 tab, Route: PO, [...] values reflect the clinical guidelines of the [place] Diabetes [employer].7Interpretive Data: Adult reference range values reflect the clinical guidelines of the [place] [employer].HEMATOLOGY Most recent to oldest [Reference [...]
--- OUTSIDE RECORDS SUMMARY | 2019-03-07 23:58 | XMS REPORT | CCD ---
:1965 Author Organization [facility] Care Team Providers Name Role Phone Nikhil Hager Consulting Provider Sukhwinder Renteria Consulting Provider Allergies, Adverse Reactions, Alerts Substance Reaction Status NKDA Active Problem List Condition Effective Dates Status Acid reflux Resolved Anemia Resolved Anxiety Resolved Arthritis Resolved Depression Resolved Diabetes mellitus type 1 Resolved Edema of lower extremity Resolved Fibromyalgia Resolved Hyperlipidemia Resolved Hypertension Resolved MRSA1, 2 10/23/2012 Active 1nares 10/23/201224427Ygokmep added by Discern Expert. Medications Medication Instructions [...] mg, 1 supp, 10/23/2012 11/01/2012 Discontinued Route: CO, Drug form: SUPP, Q6H, Dosing Weight 113.636, kg, PRN Fever, Start date: 10/23/12 0:37:00, Duration: 30 day, Stop date: 11/22/12 0:36:00 Visipaque 320mg/ml 126 mL, Route: IVP, Drug Form: SOLN, Dosing Weight 113.636 , kg, ONCALL, STAT, Start date: 10/23/12 16:52:00, Duration: 1 doses or times, Dose=2.2ml/kg, Max xusi=206at -- "To be infused by Radiology Staff ONLY" 10/2310/23/2012 Completed Dose=2.2ml/kg, Max nzsv=755cc -- "To be infused by Radiology Staff [...] mg, 1 supp, 10/24/2012 10/24/2012 Deleted Route: CO, Drug form: SUPP, ONCE, Dosing Weight 78.2, [...] Duration: 1 doses or times, Dose=2.2ml/kg, Max jqyz=770go -- "To be infused by Radiology Staff ONLY" 10/2310/23/2012 Completed Dose=2.2ml/kg, Max jpwa=097vy -- "To be infused by Radiology Staff [...] the Molecular Diagnostic Laboratory within the [facility]. The Molecular Diagnostic Laboratory is authorized [...] values reflect the clinical guidelines of the [place] Diabetes Association.11Interpretive Data: Adult reference range values reflect the clinical guidelines of the [place] [employer].12Interpretive Data: Adult reference range values reflect the clinical guidelines of the [place] [employer].13Interpretive Data: Reference range is based on recommendations in the Endocrine Society Clinical Practice Guideline (J Clin Endocrinol Metab 2011;96:2014-7536)14Result Comment: Specimen Moderately Hemolyzed.15Result Comment: Critical Result(s) called to daisy otoole at 10/25/2012 01:18:09 RADIOACTIVE WASTE DISPOSAL DISPATCHER by tac. Read back OK.16Result Comment: Critical Result(s) called to Maribel Bustos at 10/24/2012 13:23:46 RADIOACTIVE WASTE DISPOSAL DISPATCHER by lwb . Readback OK.17Result Comment: Critical Result(s) called to Lyn King at 10/24/2012 09:52:38 RADIOACTIVE WASTE DISPOSAL DISPATCHER by lwb . Read back OK.18Result Comment: Critical Result(s) called to Jelani Rasmussen at 10/25/2012 00: 47:48 RADIOACTIVE WASTE DISPOSAL DISPATCHER by RM. Read back OK.19Result Comment: Critical Result(s) called to mariana bustos at _ 10/24/2012 13:37:22 CSTby_lss. Readback OK.20Result Comment : Critical Result(s) called to romero beltre at _10/24/2012 09:50:18 RADIOACTIVE WASTE DISPOSAL DISPATCHER by_lss. Read back OK.21Interpretive Data: HbA1C% eAG(mg/dL) [...] Data: Heparin Therapeutic Range: 57 - 92 Oplmorx91Vvuvsygvkgyd Data: Heparin Therapeutic Range: 57 - 92 Wkdztop92Ehogbvilzjdp Data: Heparin Therapeutic Range: 57 - 92 Seconds Microbiology Reports PROCEDURE:Culture: Urine STATUS: Auth (Verified) BODY SITE: COLLECTED DATE/TIME: 10/23/2012 20:33:00 SOURCE: Urine,Straight Cath FREE TEXT SOURCE: FINAL REPORTS Final Ayscnm02,000 - 100,000 CFU/mL Gram Negative Rods , Lactose Fermenters , 2 [place] Types 50,000 - 100,000 CFU/mL Enterococcus Species [...]
--- OUTSIDE RECORDS SUMMARY | 2019-03-08 | XMS REPORT | CCD ---
:[address] [facility] Care Team Providers Name Role Phone Marcela Michaelsbhumika [place] Consulting Provider Alberto Mata Consulting Provider Allergies, Adverse Reactions, Alerts Substance Reaction Status NKDA Active Problem List Condition Effective Dates Status Acid reflux Resolved Anemia Resolved Anxiety Resolved Arthritis Resolved Depression Resolved Diabetes mellitus type 1 Resolved Edema of lower extremity Resolved Fibromyalgia Resolved Hyperlipidemia Resolved Hypertension Resolved [place] - Myocardial infarction 10/22/2012 Resolved MRSA1, 2, 3, 4 10/23/2012 Active Neuropathy Resolved - Nares - Gxori6kitdb 10/23/201251298Pkqlodq added by Discern Expert. Medications Medication Instructions [...] IVPB, Drug 12/02/2012 12/02/2012 Discontinued form: PDR/INJ, [id number], Dosing Weight 100, kg, Start date: 12/02/12 [...] 11/29/2012 11/29/2012 Discontinued SUB-Q, Drug form: INJ, xknwD95H, Dosing Weight 101.364, kg, Start date: 11/29/12 [...] date: 12/04/12 23:39:00, Stop date: 12/04/12 23:39:00 [place] 7.5/325 oral tablet 1 tab, Route: PO, [...] IVPB, Drug 11/29/2012 12/01/2012 Discontinued form: PDR/INJ, [id number], Dosing Weight 100, kg, Start date: 11/29/12 [...] Molecular Diagnostic Laboratory within the [facility]. The Molecular Diagnostic Laboratory is authorized [...] the clinical guidelines of the [place] Diabetes [employer].11Interpretive Data: Adult reference range values reflect the clinical guidelines of the [place] Diabetes [employer].12Interpretive Data: Adult reference range values reflect the clinical guidelines of the [place] [employer].13Interpretive Data: No established reference ranges.14Interpretive [...] Data: Heparin Therapeutic Range: 57 - 92 Bkounej28Pxgbkzjzlmyt Data: Heparin Therapeutic Range: 57 - 92 [...] Catch FREE TEXT SOURCE: FINAL REPORTS Final Tixdoh58,000 - 50,000 CFU/mL Yeast <10,000 CFU/mL Skin EsPRELIMINARY REPORTS Preliminary ReportNo Growth; Holding Procedures Procedures Date Related Diagnosis Heart procedure 1 1cardiac stent for [place]
--- OUTSIDE RECORDS SUMMARY | 2019-03-08 00:01 | XMS REPORT | CCD ---
:1965 Author Organization [facility] Care Team Providers Name Role Phone JohnbeckiReno [...] 10/23/2012 Active Neuropathy Resolved - Nares/ - Ttbfn3iihjc 10/23/201233269Swvliag added by Discern Expert. Medications Medication Instructions [...] 03/08/13 3:17:00, Stop date: 03/08/13 3:17:00 lidocaine-epi 1%-1:304543 1 ml, Route: SUB-Q, Drug 03/07/2013 03/07/2013 [...] date: 03/07/13 2:35:00, Stop date: 03/07/13 2:35:00 [place] 5/325 oral tablet 1 tab, PO, Q6H, [...] Results BEDSIDE GLUCOSE TESTING Most recent to [facility] 1 2 3 [Reference Range]: Gluc POC [...] Reportable Limit: 200 mg/dL.URINALYSIS Most recent to [facility] [Reference Range]: 1 2 3 UA Turbidity [...] values reflect the clinical guidelines of the [place] Diabetes Association.8Interpretive Data: Adult reference range values reflect the clinical guidelines of the [place] Diabetes Association.9Interpretive Data: Adult reference range values reflect the clinical guidelines of the [place] Diabetes [employer].HEMATOLOGY Most recent to oldest 1 [...]
--- OUTSIDE RECORDS SUMMARY | 2019-03-08 00:02 | XMS REPORT | CCD ---
:[address] [facility] Care Team Providers Name Role Phone Sukhwinder Renteria Referring Provider Allergies, Adverse Reactions, Alerts Substance Reaction Status NKDA Active Problem List Condition Effective Dates Status Acid reflux Resolved Anemia Resolved Anxiety Resolved Arthritis Resolved Depression Resolved Diabetes mellitus type 1 Resolved Edema of lower extremity Resolved Fibromyalgia Resolved Gastric ulcer Resolved Hyperlipidemia Resolved Hypertension Resolved MA - Myocardial infarction 10/22/2012 Resolved MRSA1, 2, 3, 4 10/23/2012 Active Neuropathy Resolved - Nares - Hxvvv4dkecg 10/23/201269972Iyvgqls added by Discern Expert. Medications Medication Instructions [...]
--- OUTSIDE RECORDS SUMMARY | 2019-03-08 00:02 | XMS REPORT | CCD ---
:1965 Author Organization [facility] Care Team Providers Name [...] 10/23/2012 Active Neuropathy Resolved - Nares - Ivuam5lgqdn 10/23/201225220Gvtmlqo added by Discern Expert. Medications Medication Instructions [...] the clinical guidelines of the [place] Diabetes Association.7Interpretive Data: Adult reference range values [...]
--- OUTSIDE RECORDS SUMMARY | 2019-03-08 00:03 | XMS REPORT ---
:1965 Author Organization [facility] Address [address] [place] [address] [address] [place] [address] Care Team Providers Name Role Phone SHANI [...] (BEAKER) (test 211 mg/dL 70-110 TESTED AT [address] nrzi=[id number]) [place] [id number] POCT-GLUCOSE [id number] 13:04:00 Test Item Value Reference Range Comments POC-GLUCOSE METER (BEAKER) 282 mg/dL 70-110 TESTED AT [address] (test ceql=6980) [place] [id number] POCT-GLUCOSE [id number] 14:35:00 Test Item Value Reference Range Comments POC-GLUCOSE METER (BEAKER) 200 mg/dL 70-110 TESTED AT [address] (test xlaq=8341) [place] [address] [id number] 12:24:00 Test Item Value Reference Range Comments SODIUM (BEAKER) (test fwzy=355) 136 meq/L 136-145 POTASSIUM (BEAKER) (test uspv=091) 5.4 meq/L 3.5-5.1 CHLORIDE (BEAKER) (test oiiw=849) 102 meq/L 98-107 CO2 (BEAKER) (test dcuk=356) 25 meq/L 22-29 [id number] 12:24:00 Test Item Value Reference Range Comments GLUCOSE RANDOM (BEAKER) (test dvjo=410) 353 mg/dL 70-105 BUN AND [id number] 12:24:00 Test Item Value Reference Range Comments BLOOD UREA NITROGEN 14 mg/dL 7-21 ([facility]) (test bxfi=703) CREATININE ([facility]) (test 1.08 mg/dL 0.57-1.25 jnji=809) EGFR ([facility]) (test 53 mL/min/1.73 sq m ESTIMATED GFR IS NOT pwho=7044) ACCURATE CREATININE CLEARANCE IN PREDICTING GLOMERULAR FILTRATION RATE. ESTIMATED GFR IS NOT APPLICABLE FOR DIALYSIS PATIENTS. POCT-HEMOGLOBIN [id number] 11:43:00 Test Item Value Reference Range Comments POC-HEMOGLOBIN METER 12.1 g/dL 12.0-15.[address] ([facility]) (test vcai=3740) [place] [address] POCT-GLUCOSE [id number] 11:43:00 Test Item Value Reference Range Comments POC-GLUCOSE METER ([facility]) 320 mg/dL 70-110 Verify with Lab draw/TESTED AT (test cyyq=2806) [place] [address] [address] [place] [address]
--- OUTSIDE RECORDS SUMMARY | 2019-03-08 00:03 | XMS REPORT | CCD ---
:1965 Author Organization [facility] Care Team Providers Name Role Phone Alberto [...] 10/23/2012 Active Neuropathy Resolved - Nares - Xaepa7ikelx 10/23/201259777Oxlmzvn added by Discern Expert. Medications Medication Instructions Start Date End Date Status acetaminophen-hydrocod 1 tab, Route: PO, Drug Form: 07/12/2013 07/14/2013 Discontinued one 325 mg-5 mg oral TAB, Dosing Weight 86.364, tablet kg, Q4H, PRN Pain, Start date: 07/12/13 18:23:00, Duration: 30 day, Stop date: 08/11/13 18:22:00(Same as: [place] 325/5) Do not exceed 4gm/day of acetaminophen. [...] 1 doses or times, Dose =2.2ml/kg, Max hvnd=006mc -- "To be infused by Radiology Staff ONLY" 201207/12/2013 Completed Dose=2.2ml/kg, Max wlhc=379vp -- "To be infused by Radiology Staff [...] day, Stop date: 08/11/13 9:00:00(Same as: Lopressor) [place] 5/325 oral 1 tab, Route: PO, Dosing [...] date: 08/11/13 9:00:00(Same as: Mag-Ox 400)Magnesium oxide 914zg=744wh elemental magnesiumDose=____mg magnesium oxide (___mg elemental magnesium) [...] [Negative] Negative 1 (07/13/2013 00:00:59) 1Interpretive Data: [employer] Clostridium difficile assay utilizes loop-mediated isothermalDNA amplification (LAMP) technology to detect a 204 bp region of the tcdA gene within the PaLoc genesegment present in all known toxigenic C. difficile strains. The assay utilizes FDA cleared IVD reagents. Performance characteristics have been verified by the Molecular Diagnostic Laboratory within the [facility]. The Molecular Diagnostic Laboratory is authorized [...] /LPF] Many /LPF *ABN* (07/12/2013 03:00:00) UA [place] Yeast [None Seen /HPF] Moderate /HPF *ABN* [...] values reflect the clinical guidelines of the [place] Diabetes Association.9Interpretive Data: Adult reference range values reflect the clinical guidelines of the [place] Diabetes Association.10Interpretive Data: Adult reference range values reflect the clinical guidelines of the [place] Diabetes Association.HEMATOLOGY Most recent to oldest [Reference [...] to oldest [Reference Range]: 1 2 3 [facility]-HIV 1/2 Ab [Negative] Negative *NA* (07/14/2013 00:27:00) [facility]-Hep C Ab [Negative] Negative *NA* (07/14/2013 00:27:00) CDC-HIV 1/2 Ab [Negative] Negative *NA* (07/12/2013 16:02:06)
[2019-03-08 20:16] VITALS: BP 119/73; TEMP 98.8; O2SAT 100
== END 2019-03-07 22:48 | disposition home or self-care (01) ==
LOC: ER 21:50
DX: S90.211A Contusion of right great toe with damage to nail, initial encounter (principal); W22.8XXA Striking against or struck by other objects, initial encounter; Y93.9 Activity, unspecified; Y92.9 Unspecified place or not applicable; Z23 Encounter for immunization; Z79.4 Long term (current) use of insulin; Z79.82 Long term (current) use of aspirin; Z91.02 Food additives allergy status; F17.210 Nicotine dependence, cigarettes, uncomplicated; I10 Essential (primary) hypertension; I25.2 Old myocardial infarction; E78.00 Pure hypercholesterolemia, unspecified; E11.9 Type 2 diabetes mellitus without complications; F32.9 Major depressive disorder, single episode, unspecified
CPT/HCPCS: 90471; 90714; 99283

== ENCOUNTER 2019-03-13 06:32 | Inpatient (IN) | payer OTHER ==
--- OUTSIDE RECORDS SUMMARY | 2019-03-13 06:36 | XMS REPORT | Clinical Summary ---
:1965 Author Organization [facility] Address [address] [place] [address] Care Team Providers Name Role Phone Fabián [...] Octaviano Mejia MD 05/31/2018 Surgery Gastroenterology Boone Barhaona UPPER ENDOSCOPY [facility] 05/31/2018 Hospital Encounter Gastroenterology Boone Barahona [facility] 05/24/2018 Hospital Encounter Pre-Admission Testing Resource, [facility] Preadmit Phone after 03/12/2018 Social History Tobacco Use Types Packs/Day Years [...] procedure are in the results section. after 03/12/2018 Results POC-Glucose meter (05/31/2018 2:40 PM CDT)Only the most recent of2 resultswithin the time period is included. POC-Glucose Meter 211 (H)Comment: TESTED AT 70 - 110 mg/dL [facility] [address] [facility] [id number] Specimen Blood Performing Organization Address City/State/Zipcode Phone Number [facility] [address] [place] [address] CENTER REPORT OF PROCEDURE - ENDOSCOPY URL (05/31/2018 2:37 PM CDT) Narrative Performed At after 03/12/2018 Insurance Payer Benefit Plan / Group Subscriber ID Type Phone Address [facility] - MEDICARE AARP/MEDICARE COMPLETE xxxxxxxxx [facility] CARE Advance Directives For more information, please contact:[address] [phone] Code Status Date Activated Date Inactivated Comments Full Code 06/25/2017 10:56 AM 06/25/2017 5:59 PM This code status was determined by: Patient
[2019-03-13] MEDS ORDERED: ONDANSETRON 4 MG/2 ML VIAL ONE (07:31)
[2019-03-13] MEDS ORDERED: NA CHLORIDE 0.9% 2,000 ML ONE (07:31)
[2019-03-13 07:53] LABS: Absolute Lymphocytes (CBC) 0.6 K/uL (0.7-4.9); Basophils % 0.5 % (0-1.3); Hematocrit 33.7 % (36.0-45.0); Lymphocytes % 8.3 % (15.3-44.8); MPV 9.2 fL (7.6-11.3); Monocytes % 1.8 % (3.3-12.3); RBC Red Blood Cell Count 4.19 M/uL (3.86-4.86)
[2019-03-13 08:12] LABS: Albumin 3.3 g/dL (3.4-5.0); Bilirubin Direct 0.3 mg/dL (0-0.2); Bilirubin Total 0.6 mg/dL (0.2-1.0); Potassium 4.3 mmol/L (3.5-5.1); Protein, Total 7.6 g/dL (6.4-8.2)
[2019-03-13 08:22] LABS: Arterial Blood Carboxyhemoglob 0.7 % (0-1.5); Blood Gas Oxyhemoglobin 32.5 % (94-97)
[2019-03-13] MEDS ORDERED: METOCLOPRAMIDE 10 MG/2mL INJ ONE (08:25)
--- OUTSIDE RECORDS SUMMARY | 2019-03-13 08:35 | XMS REPORT | Continuity of Care Document ---
:1965 Author Organization [employer] Care Team Providers Name Role Phone [employer] Unavailable Unavailable Problems Problem Status Onset Classification Date Comments Source Date Reported PAIN IN Active 08/13/20 [facility] ABDOMEN/NAUSEA/TI Medical GHTENESS IN [facility] Center BDDC/GASTROESOPHA Active 07/24/20 [facility] GEAL REFLUX [address] [place] [address] DISEASE Center VOMITING Active 07/11/[address] Center GASTROPARESIS Active 07/11/[address] Center CHEST PAIN Active 04/02/[address] Center R/O ACS Active 04/02/[address] SOB/CHEST PAIN Active 03/06/[address] Center HYPERGLYCEMIA Active 03/06/20 [facility] DEHYDRATION [address] [place] [address] GASTROPARESIS Center NASEAU Active 01/11/[address] VOMITTING, Active 11/29/19 [facility] DIABETIC, HEART Medical PT Center N/V Active 11/29/[address] Center ACS R/O AND Active 11/17/19 [facility] PERSISTANT N/V [address] [place] [address] Center NAUSEA, VOMITTING Active 11/17/[address] Center MRSA1, 2 Active 10/23/19 Problem 11/19/2012 1nares 10/23/2012 [place] [id number] 2Problem added by Discern Expert. [facility] Center MRSA1, 2, 3, 4 Active 10/23/19 Problem 08/15/2013 - Nares [place] [id number] - [facility] Medical 3nares 10/23/2012 Center 4Problem added by Discern Expert. MRSA1, 2, 3, 4 Active 10/23/19 Problem 04/05/2013 - Nares [place] [id number] - [facility] Medical 3nares 10/23/2012 Center 4Problem added by Discern Expert. N/V DEHYDRATION Active 10/22/[address] [place] - Myocardial Resolved 10/22/19 Problem 08/15/[address] [place] - Myocardial Resolved 10/22/19 Problem 04/05/[address] DSU/ REFLUX Active 06/13/[address] MORBID OBESITY Active 01/19/[address] Acid reflux Resolved Problem 04/05/2013 [facility] Anemia Resolved Problem 04/05/2013 [facility] Anxiety Resolved Problem 04/05/2013 [facility] Arthritis Resolved Problem 04/05/2013 [facility] Depression Resolved Problem 04/05/2013 [facility] Diabetes mellitus Resolved Problem 04/05/[address] Edema of lower Resolved Problem 04/05/2013 [facility] Fibromyalgia Resolved Problem 04/05/2013 [facility] Hyperlipidemia Resolved Problem 04/05/2013 [facility] Hypertension Resolved Problem 04/05/2013 [facility] Acid reflux Resolved Problem 08/15/2013 [facility] Anemia Resolved Problem 08/15/2013 [facility] Anxiety Resolved Problem 08/15/2013 [facility] Arthritis Resolved Problem 08/15/2013 [facility] Depression Resolved Problem 08/15/2013 [facility] Diabetes mellitus Resolved Problem 08/15/[address] Edema of lower Resolved Problem 08/15/2013 [facility] Fibromyalgia Resolved Problem 08/15/2013 [facility] Gastric ulcer Resolved Problem 08/15/2013 [facility] Hyperlipidemia Resolved Problem 08/15/2013 [facility] Hypertension Resolved Problem 08/15/2013 [facility] Neuropathy Resolved Problem 08/15/2013 [facility] Gastric ulcer Resolved Problem 04/05/2013 [facility] Neuropathy Resolved Problem 04/05/2013 [facility] MORBID OBESITY Active [facility] NAUSEA WITH Active [facility] VOMITING [facility] CHEST PAIN NOS Active [facility] OTHER GENERAL Active [facility] SYMPTOMS [facility] Medications Medication Details Route Status Patient Ordering Order Source Instructions Provider Date Zofran 4 mg 4 mg=1 tab, PO, Active De La Garza 08/13/ [facility] oral tablet BID, # 10 tab, 0 2012 Medical Refill(s) Center Reglan 10 mg 10 mg=1 tab, PO, Active De La Garza 08/13/ [facility] oral tablet QID, # 40 tab, 0 2012 Medical Refill(s) Center IDS med 5 mg, 1 mL, Inactive Ruggiero 08/13/ [facility] Rate: 30 ml/hr, 2012 Medical Infuse over: 2 Center minutes, Route: IV, Total Volume: 1, Stop date: 08/13/13 16:00:00 NS (Bolus) IV 1,000 mL, Rate: Inactive De La Garza [facility] 1,000 mL 1,000 ml/hr, 2012 Medical Infuse over: 1 Center hr, Route: IV, Dosing Weight 81.818 kg, Total Volume: 1,000, Priority: STAT, Start date: 08/13/13 13:56:00, Duration: 1 doses or times, Stop date: 08/13/13 14:55:00, Bolus DoseBolus Dose Phenergan 25 mg, 1 mL, Inactive De La Garza [facility] Route: IVPB, 2012 Medical Drug form: INJ, Center ONCE, Dosing Weight 81.818, kg, Priority: STAT, Start date: 08/13/13 13:17:00, Stop date: 08/13/13 13:17:00Do not give IV push. (Same as: Phenergan) Zofran 4 mg, 2 mL, Inactive De La Garza [facility] Route: IVP, Drug 2012 Medical form: INJ, ONCE, Center Dosing Weight 81.818, kg, Priority: STAT, Start date: 08/13/13 12:41:00, Stop date: 08/13/13 12:41:00(Same as: Zofran) morphine 4 mg, 1 mL, Inactive De La Garza [facility] Sulfate Route: IVP, Drug 2012 Medical form: INJ, ONCE, Center Dosing Weight 81.818, kg, Priority: STAT, Start date: 08/13/13 12:40:00, Stop date: 08/13/13 12:40:00(Same as:MORPhine Sulfate) Sodium Chloride 1,000 mL, Rate: Inactive Wilfredcz [facility] 0.9% (Bolus) IV 1,000 ml/hr, 2012 Medical 1,000 mL Infuse over: 1 Center hr, Route: IV, Dosing Weight 81.818 kg, Total Volume: 1,000, Priority: STAT, Start date: 08/13/13 11:52:00, Duration: 1 doses or times, Stop date: 08/13/13 12:51:00, Bolus DoseBolus Dose normal saline 1,000 mL, Rate: Inactive [facility] 0.9% IV 1,000 500 ml/hr, 2012 Medical mL Infuse over: 2 Center hr, Route: IV, Dosing Weight 86.364 kg, Total Volume: 1,000, Start date: 07/14/13 14:02:00, Duration: 4 hr, Stop date: 07/14/13 18:01:00 Reglan 10 mg 10 mg, 1 tab, Inactive [facility] oral tablet Route: PO, Drug 2012 Medical form: TAB, Center TID-Before Meals, Dosing Weight 86.364, kg, Start date: 07/14/13 11:30:00, Duration: 30 day, Stop date: 08/13/13 7:30:00(Same as: Reglan) Take 30 min before meals Levemir 15 unit, 0.15 No Longer [facility] mL, Route: Active 2012 Medical SUB-Q, Drug Center form: INJ, BID, Dosing Weight 86.364, kg, Start date: 07/13/13 21:00:00, Duration: 30 day, Stop date: 08/12/13 9:00:00Same as Levemir "single patient use only" pneumococcal 0.5 ml, Route: No Longer SYSTEM [facility] 23-valent IM, Drug Form: Active 2012 Medical vaccine INJ, Start date: [place] 07/13/13 9:00:00, Stop date: 07/13/13 9:00:00 influenza virus 0.5 ml, Route: No Longer SYSTEM [facility] vaccine, IM, Drug Form: Active 2012 Medical inactivated SUSP, Start Center date: 07/13/13 9:00:00, Stop date: 07/13/13 9:00:00 lisinopril 20 mg, 1 tab, No Longer [facility] Route: PO, Drug Active 2012 Medical form: TAB, Center Daily, Dosing Weight 86.364, kg, Start date: 07/13/13 9:00:00, Duration: 30 day, Stop date: 08/11/13 9:00:00(Same as: Prinivil, Zestril) metoprolol 50 mg, Route: No Longer [facility] [place] tartrate PO, Drug form: Active 2012 Medical TAB, Daily, Center Dosing Weight 86.364, kg, Start date: 07/13/13 9:00:00, Duration: 30 day, Stop date: 08/11/13 9:00:00 Lyrica 150 mg, 2 cap, No Longer [facility] Route: PO, Drug Active 2012 Medical form: CAP, BID, Center Dosing Weight 86.364, kg, Start date: 07/13/13 9:00:00, Duration: 30 day, Stop date: 08/11/13 17:00:00(Same as: Lyrica) potassium 20 mEq, 1 tab, No Longer [facility] chloride Route: PO, Drug Active 2012 Medical form: ERTAB, Center Daily, Dosing Weight 86.364, kg, Start date: 07/13/13 9:00:00, Duration: 30 day, Stop date: 08/11/13 9:00:00(Same as: K-Dur 20) "Do Not Crush" With food and full glass of water Effient 10 mg, 1 tab, No Longer [facility] Route: PO, Drug Active 2012 Medical form: TAB, Center Daily, Dosing Weight 86.364, kg, Start date: 07/13/13 9:00:00, Duration: 30 day, Stop date: 08/11/13 9:00:00Same as Effient For patients 60kg, without history of TIA/Ischemic stroke and without likely bypass surgery Protonix 40 mg, 1 tab, No Longer [facility] Route: PO, Drug Active 2012 Medical form: ECTAB, Center BID-Before Meals, Dosing Weight 86.364, kg, Start date: 07/13/13 9:00:00, Stop date: 08/11/13 16:30:00Tablet should not be chewed or crushed. (Same as: Protonix) meloxicam 7.5 mg, Route: No Longer [facility] PO, Drug form: Active 2012 Medical TAB, BID, Dosing Center Weight 86.364, kg, Start date: 07/13/13 9:00:00, Duration: 30 day, Stop date: 08/11/13 17:00:00 magnesium oxide 400 mg, 1 tab, No Longer [facility] Route: PO, Drug Active 2012 Medical form: TAB, Center Daily, Dosing Weight 86.364, kg, Start date: 07/13/13 9:00:00, Duration: 30 day, Stop date: 08/11/13 9:00:00(Same as: Mag-Ox 400) Magnesium oxide [id number] elemental magnesium Dose=____mg magnesium oxide (___mg elemental magnesium) furosemide 40 40 mg, 1 tab, No Longer [facility] mg oral tablet Route: PO, Drug Active 2012 Medical form: TAB, Center Daily, Dosing Weight 86.364, kg, Start date: 07/13/13 9:00:00, Duration: 30 day, Stop date: 08/11/13 9:00:00(Same as: Lasix) May cause GI upset. Give with food or milk. ferrous sulfate 325 mg, 1 tab, No Longer [facility] Route: PO, Drug Active 2012 Medical form: ECTAB, Center TID, Dosing Weight 86.364, kg, Start date: 07/13/13 9:00:00, Duration: 30 day, Stop date: 08/11/13 17:00:00Give with food. "Do Not Crush" clonazepam 0.5 mg, 1 tab, No Longer [facility] Route: PO, Drug Active 2012 Medical form: TAB, TID, Center Dosing Weight 86.364, kg, Start date: 07/13/13 9:00:00, Duration: 30 day, Stop date: 08/11/13 17:00:00(Same As: Klonopin) Insulin regular 5 unit, 0.05 mL, No Longer [facility] Route: SUB-Q, Active 2012 Medical Drug [...] Reglan 10 mg, 2 mL, No Longer [facility] Route: IVP, Drug Active 2012 Medical form: INJ, Q6H, Center Dosing Weight 86.364, kg, Start date: 07/13/13 0:00:00, Duration: 30 day, Stop date: 08/11/13 18:00:00(Same as: Reglan) normal saline 1,000 mL, Rate: No Longer Adolfo [facility] 0.9% IV 1,000 200 ml/hr, Active 2012 Medical mL Infuse over: 5 Center hr, Route: IV, Dosing Weight 86.364 kg, Total Volume: 1,000, Start date: 07/12/13 21:08:00, Duration: 3 doses or times, Stop date: 07/13/13 12:07:00 metoprolol 50 mg, 1 tab, No Longer [facility] tartrate Route: PO, Drug Active 2012 Medical form: TAB, Q12H, Center Dosing Weight 86.364, kg, Start date: 07/12/13 21:00:00, Duration: 30 day, Stop date: 08/11/13 9:00:00(Same as: Lopressor) Levemir 12 unit, 0.12 No Longer [facility] mL, Route: Active 2012 Medical SUB-Q, Drug Center form: INJ, BID, Dosing Weight 86.364, kg, Start date: 07/12/13 21:00:00, Duration: 30 day, Stop date: 08/11/13 9:00:00Same as Levemir "single patient use only" Cymbalta 120 mg, 2 cap, No Longer [facility] Route: PO, Drug Active 2012 Medical form: DR, Center Bedtime, Dosing Weight 86.364, kg, Start date: 07/12/13 21:00:00, Duration: 30 day, Stop date: 08/10/13 21:00:00Non Formulary Drug (Same as: Cymbalta) (Do Not Crush) ProAir HFA 90 2 puff, Route: No Longer [facility] mcg/inh INHALATION, Drug Active 2012 Medical inhalation Form: AERO/A, [place] aerosol with Dosing Weight adapter 86.364, kg, QID, PRN Shortness of breath, Start date: 07/12/13 20:09:00, Duration: 30 day, Stop date: 08/11/13 20:08:00Albutero l 90 microgram/inh 8gm HFA Same as: Ventolin, Proventil aspirin 81 mg 81 mg, 1 tab, No Longer [facility] tablet, enteric Route: PO, Drug Active 2012 Medical coated form: ECTAB, [place] Daily, Dosing Weight 86.364, kg, Start date: 07/12/13 20:00:00, Duration: 30 day, Stop date: 08/11/13 9:00:00Do not crush or chew. (Same As: Ecotrin) glucagon 1 mg, Route: IM, No Longer Adolfo [facility] Drug form: Active 2012 Medical PDR/INJ, PRN, Center Dosing Weight 86.364, kg, PRN Blood Glucose Results, Start date: 07/12/13 18:26:00, Duration: 30 day, Stop date: 08/11/13 18:25:00 Dextrose 50% 12.5 gm, 25 mL, No Longer Adolfo [facility] Syringe Route: IVP, Drug Active 2012 Medical Form: INJ, [place] Dosing Weight 86.364, kg, PRN, PRN Blood Glucose Results, Start date: 07/12/13 18:26:00, Duration: 30 day, Stop date: 08/11/13 18:25:00 insulin aspart 4 unit, 0.04 mL, No Longer Adolfo [facility] Route: SUB-Q, Active 2012 Medical Drug form: SOLN, [place] TID-Before Meals, Dosing Weight 86.364, kg, PRN Blood Glucose Results, Start date: 07/12/13 18:26:00, Duration: 30 day, Stop date: 08/11/13 18:25:00Roll in palms of hands gently; Do not shake vigorously. (Same as: NovoLog) "single patient use only" Stable for 28 days at room temperature. Expires in days from Da te tramadol 50 mg 50 mg, 1 tab, No Longer [facility] [place] oral tablet Route: PO, Drug Active 2012 Medical form: TAB, Q4H, Center Dosing Weight 86.364, kg, PRN as needed for pain, Start date: 07/12/13 18:24:00, Duration: 30 day, Stop date: 08/11/13 18:23:00Not to exceed 400mg/day. (Same As: Ultram) acetaminophen-h 1 tab, Route: No Longer Adolfo [facility] ydrocodone 325 PO, Drug Form: Active 2012 Medical mg-5 mg oral TAB, Dosing Center tablet Weight 86.364, kg, Q4H, PRN Pain, Start date: 07/12/13 18:23:00, Duration: 30 day, Stop date: 08/11/13 18:22:00(Same as: Proctor 325/5) Do not exceed 4gm/day of acetaminophen. Flexeril 10 mg, 1 tab, No Longer [facility] Route: PO, Drug Active 2012 Medical form: TAB, TID, Center Dosing Weight 86.364, kg, PRN Spasm, Start date: 07/12/13 18:23:00, Duration: 30 day, Stop date: 08/11/13 18:22:00(Same As: Flexeril) benzonatate 100 mg, 1 cap, No Longer [facility] Route: PO, Drug Active 2012 Medical form: CAP, TID, Center Dosing Weight 86.364, kg, PRN as needed for cough, Start date: 07/12/13 18:23:00, Duration: 30 day, Stop date: 08/11/13 18:22:00(Same As: Oleksandr Francis) "Do Not Crush" Saline Flush 5 ml, Route: No Longer [facility] 0.9% IVP, Drug Form: Active 2012 Medical INJ, Dosing Center Weight 86.364, kg, PRN, PRN Line Flush, Start date: 07/12/13 18:22:00, Duration: 30 day, Stop date: 08/11/13 18:21:00(Same as: BD Posiflush) ondansetron 4 mg, 2 mL, No Longer [facility] Route: IVP, Drug Active 2012 Medical form: INJ, Q8H, Center Dosing Weight 86.364, kg, PRN Nausea & Vomiting, Start date: 07/12/13 18:22:00, Duration: 30 day, Stop date: 08/11/13 18:21:00(Same as: Zofran) aspirin 81 mg 81 mg, 1 tab, Active [facility] tablet, enteric PO, Daily, 0 2012 Medical coated tab, Center Substitution Allowed, ECTAB Klor-Con M20 20 mEq, 1 tab, No Longer [facility] oral tablet, PO, Daily, 180 Active 2012 Medical extended tab, Center release Substitution Allowed, ERTAB furosemide 40 40 mg, 1 tab, No Longer [facility] mg oral tablet PO, Daily, 30 Active 2012 Medical tab, Center Substitution Allowed, TAB benzonatate 100 PO, TID, PRN, 1 Active [facility] mg oral capsule to 2 tabs, prn, 2012 Medical Substitution Center Allowed1 to 2 tabs metoprolol 50 mg, 1 tab, No Longer [facility] tartrate 50 mg PO, Daily, 180 Active 2012 Medical oral tablet tab, Center Substitution Allowed, TAB Reglan 10 mg, 2 mL, Inactive Clover Simmons [facility] Route: IVP, Drug 2012 Medical form: INJ, ONCE, Center Dosing Weight 86.364, kg, Priority: STAT, Start date: 07/12/13 12:12:00, Stop date: 07/12/13 12:12:00(Same as: Reglan) Zofran 4 mg, Route: Inactive erick [facility] IVP, Drug form: 2012 Medical INJ, ONCE, Center Dosing Weight 86.364, kg, Priority: STAT, Start date: 07/12/13 10:52:00, Stop date: 07/12/13 10:52:00 morphine 4 mg, Route: Inactive erick 07/12[facility] Sulfate IVP, Drug form: 2012 [...] Stop date: 07/12/13 11:05:00, Bolus DoseBolus Dose Proctor 5/325 1 tab, Route: Inactive Clover Simmons [...] ODT 8 mg, Route: PO, Inactive Tiara [facility] Drug form: 2012 Medical TABDIS, ONCE, Center Dosing Weight 86.364, kg, Priority: STAT, Start date: 07/12/13 6:56:00, Stop date: 07/12/13 6:56:00 Levemir 10 unit, 0.1 mL, Inactive Tiara [facility] Route: SUB-Q, 2012 Medical Drug form: INJ, Center ONCE, Dosing Weight 86.364, kg, Start date: 07/12/13 4:20:00, Stop date: 07/12/13 4:20:00Same as Levemir "single patient use only" Omnipaque 100 mL, Route: Inactive Tiara Fei 350mg/ml IVP, Drug Form: 2012 Medical SOLN, Dosing Center Weight 86.364, kg, ONCALL, STAT, Start date: 07/12/13 4:18:00, Duration: 1 doses or times, Dose=2.2ml/kg, Max [id number] -- "To be infused by Radiology Staff ONLY"Dose=2.2ml/ kg, Max [id number] -- "To be infused by Radiology Staff [...] Phenergan 12.5 mg, 0.5 mL, Inactive Maggin [facility] Route: IVPB, 2012 Medical Drug form: [...] mg, 1 tab, PO No Longer [facility] [place] tablet, enteric Route: PO, Drug Active 2012 [...] mg, 1 tab, PO No Longer [facility] [place] Route: PO, Drug Active 2012 Medical form: [...] mg, 1 tab, PO No Longer [facility] [place] Route: PO, Drug Active 2012 Medical form: TAB, BID, Center Dosing Weight 90, kg, Priority: Routine, Start date: 04/03/13 9:00:00, Duration: 30 day, Stop date: 05/02/13 17:00:00 lisinopril 20 mg, Route: PO No Longer [facility] PO, Drug form: Active 2012 Medical [...] PO, Drug Active 2012 Medical form: ECTAB, [place] TID, Dosing Weight 90, kg, Start date: [...] SUB-Q, Active 2012 Medical Drug form: SOLN, [place] TID-Before Meals, Dosing Weight 90, kg, Start [...] PO, Drug Active 2012 Medical form: DRC, [place] Bedtime, Dosing Weight 90, kg, Start date: 04/02/13 23:30:00, Duration: 30 day, Stop date: 05/02/13 21:00:00 Zocor 40 mg, 1 tab, PO No Longer [facility] Route: PO, Drug Active 2012 Medical form: TAB, Center Bedtime, Dosing Weight 90, kg, Start date: 04/02/13 21:00:00, Duration: 30 day, Stop date: 05/01/13 21:00:00 Cymbalta 60 mg, 1 cap, PO No Longer [facility] Route: PO, Drug Active 2012 Medical form: DRC, Center Bedtime, Dosing Weight 90, kg, Start date: 04/02/13 21:00:00, Duration: 30 day, Stop date: 05/01/13 21:00:00 magnesium oxide 400 mg, 1 tab, PO No Longer [facility] [place] Route: PO, Drug Active 2012 Medical form: TAB, Center Daily, Dosing Weight 90, kg, Priority: NOW, Start date: 04/02/13 20:45:00, Duration: 30 day, Stop date: 05/02/13 9:00:00 Levemir 12 unit, 0.12 SUB-Q No Longer [facility] [place] mL, Route: Active 2012 Medical SUB-Q, Drug Center form: INJ, BID, Dosing Weight 90, kg, Start date: 04/02/13 20:45:00, Duration: 30 day, Stop date: 05/02/13 17:00:00 hydrALAZINE 10 mg, 0.5 mL, IVP No Longer [facility] Route: IVP, Drug Active 2012 Medical form: INJ, Q4H, Center Dosing Weight 90, kg, PRN Hypertension, Start date: 04/02/13 20:37:00, Duration: 30 day, Stop date: 05/02/13 20:36:00 lisinopril 20 mg, 1 tab, PO No Longer [facility] Route: PO, Drug Active 2012 Medical form: TAB, Center Daily, Dosing Weight 90, kg, Start date: 04/02/13 20:30:00, Duration: 30 day, Stop date: 05/02/13 9:00:00 metoprolol 12.5 mg, 1 ea, PO No Longer [facility] tartrate Route: PO, Drug Active 2012 Medical form: TAB, BID, Center Dosing Weight 90, kg, Start date: 04/02/13 20:30:00, Duration: 30 day, Stop date: 05/02/13 17:00:00 insulin aspart 8 unit, 0.08 mL, SUB-Q No Longer [facility] Route: SUB-Q, Active 2012 Medical Drug form: SOLN, Center TID-Before Meals, Dosing Weight 90, kg, PRN Blood Glucose Results, Start date: 04/02/13 20:30:00, Duration: 30 day, Stop date: 05/02/13 20:29:00 glucagon 1 mg, Route: IM, IM No Longer [facility] Drug form: Active 2012 Medical PDR/INJ, PRN, Center Dosing Weight 90, kg, PRN Blood Glucose Results, Start date: 04/02/13 20:30:00, Duration: 30 day, Stop date: 05/02/13 20:29:00 Dextrose 50% 25 gm, 50 mL, IVP No Longer [facility] Syringe Route: IVP, Drug Active 2012 Medical Form: INJ, Center Dosing Weight 90, kg, PRN, PRN Blood Glucose Results, Start date: 04/02/13 20:30:00, Duration: 30 day, Stop date: 05/02/13 20:29:00 Insulin regular 8 unit, Route: SUB-Q No Longer [facility] SUB-Q, Active 2012 Medical TID-Before Center Meals, Dosing Weight 90, kg, PRN Blood Glucose Results, Start date: 04/02/13 20:29:00, Duration: 30 day, Stop date: 05/02/13 20:28:00 glucagon 1 mg, Route: IM, IM No Longer [facility] PRN, Dosing Active 2012 Medical Weight 90, kg, Center PRN Blood Glucose Results, Start date: 04/02/13 20:29:00, Duration: 30 day, Stop date: 05/02/13 20:28:00 Dextrose 50% 50 mL, Route: IVP No Longer [facility] 04/03[facility] Syringe IVP, Dosing Active 2012 Medical Weight 90, kg, Center PRN, PRN Blood Glucose Results, Start date: 04/02/13 20:29:00, Duration: 30 day, Stop date: 05/02/13 20:28:00 Zofran 4 mg, 2 mL, IV No Longer O[facility] Route: IV, Drug Active 2012 Medical form: INJ, Q8H, Center Dosing Weight 90, kg, PRN Nausea, Start date: 04/02/13 20:29:00, Duration: 30 day, Stop date: 05/02/13 20:28:00 Maalox Advanced 30 mL, Route: PO No Longer O[facility] Regular PO, Drug Form: Active 2012 Medical Strength SUSP SUSP, Dosing Center Weight 90, kg, QID, PRN Indigestion, Start date: 04/02/13 20:28:00, Duration: 30 day, Stop date: 05/02/13 20:27:00 Flexeril 10 mg, 1 tab, PO No Longer O[facility] Route: PO, Drug Active 2012 Medical form: TAB, TID, Center Dosing Weight 90, kg, PRN Spasm, Start date: 04/02/13 20:22:00, Duration: 30 day, Stop date: 05/02/13 20:21:00 acetaminophen-h 1 tab, Route: PO No Longer idvar [facility] ydrocodone 325 PO, Drug Form: Active 2012 Medical mg-5 mg oral TAB, Dosing Center tablet Weight 90, kg, Q4H, PRN Pain, Start date: 04/02/13 20:22:00, Duration: 30 day, Stop date: 05/02/13 20:21:00 Phenergan 12.5 mg, 0.5 mL, IVPB No Longer Mitch [facility] Route: IVPB, Active 2012 Medical Drug form: INJ, Center ONCE, Dosing Weight 90, kg, Start date: 04/02/13 20:11:00, Stop date: 04/02/13 20:11:00 morphine 4 mg, 1 mL, IVP No Longer Mitch [facility] Sulfate Route: IVP, Drug Active 2012 Medical form: INJ, ONCE, Center Dosing Weight 90, kg, Start date: 04/02/13 20:10:00, Stop date: 04/02/13 20:10:00 Phenergan 12.5 mg, 0.5 mL, IVPB No Longer Zhang [facility] Route: IVPB, Active 2012 Medical Drug form: INJ, Center ONCE, Dosing Weight 90, kg, Priority: STAT, Start date: 04/02/13 17:11:00, Stop date: 04/02/13 17:11:00 Zofran 4 mg, 2 mL, IVP No Longer Zhang [facility] Route: IVP, Drug Active 2012 Medical form: INJ, ONCE, Center Dosing Weight 90, kg, Priority: STAT, Start date: 04/02/13 16:52:00, Stop date: 04/02/13 16:52:00 nitroglycerin 0.4 mg, 1 tab, SL No [facility] Route: SL, Drug Active 2012 Medical form: TAB, Center Q5Min, Dosing Weight 90, kg, PRN Chest Pain, Priority: STAT, Start date: 04/02/13 16:31:00, Duration: 3 doses or times, Stop date: Limited # of times aspirin 325 mg, 1 tab, PO No Longer [facility] Route: PO, Drug Active 2012 Medical form: ECTAB, Center ONCE, Dosing Weight 90, kg, Priority: STAT, Start date: 04/02/13 16:31:00, Stop date: 04/02/13 16:31:00 morphine 4 mg, 1 mL, IVP No Longer [facility] Sulfate Route: IVP, Drug Active 2012 Medical form: INJ, ONCE, Center Dosing Weight 90, kg, Start date: 04/02/13 16:30:00, Stop date: 04/02/13 16:30:00 erythromycin 1 cap, PO, Q12H, PO Active [facility] 250 mg oral 14 cap, 2012 Medical enteric coated Substitution Center tablet Allowed, ECTAB GI cocktail 30 ml, Route: PO No Longer [facility] PO, Drug Form: Active 2012 Medical SUSP, Dosing Center Weight 90, kg, ONCE, Routine, Start date: 03/08/13 16:26:00, Stop date: 03/08/13 16:26:00 erythromycin 250 mg, 1 cap, PO No Longer [facility] 250 mg oral Route: PO, Drug Active 2012 Medical enteric coated form: ECCAP, [place] tablet Q12H, Dosing Weight 90, kg, Start date: 03/08/13 12:00:00, Duration: 30 day, Stop date: 04/07/13 9:00:00 magnesium 2 gm, 50 mL, IVPB No Longer [facility] sulfate Route: IVPB, Active 2012 Medical Drug form: INJ, Center Q2H, Dosing Weight 90, kg, Total Dose=4 gm, Start date: 03/08/13 12:00:00, Duration: 2 doses or times, Stop date: 03/08/13 14:00:00, For Mg=1.5 - 1.7 mg/dLFor Mg=1.5 - 1.7 mg/dL insulin aspart 5 unit, 0.05 mL, SUB-Q No Longer [place] [facility] Route: SUB-Q, Active 2012 Medical Drug form: SOLN, [place] ONCE, Dosing Weight 90, kg, Start date: 03/08/13 3:17:00, Stop date: 03/08/13 3:17:00 Zocor 40 mg, 1 tab, PO No Longer [facility] Route: PO, Drug Active 2012 Medical form: TAB, Center Bedtime, Dosing Weight 90, kg, Start date: 03/07/13 21:00:00, Duration: 30 day, Stop date: 04/05/13 21:00:00 Cymbalta 120 mg, 2 cap, PO No Longer [facility] Route: PO, Drug Active 2012 Medical [...] unit, 0.1 mL, SUB-Q No Longer [facility] Route: SUB-Q, Active 2012 Medical Drug form: SOLN, Center ONCE, Dosing Weight 90, kg, Start date: 03/07/13 19:16:00, Stop date: 03/07/13 19:16:00 Lyrica 150 mg, 2 cap, PO No Longer [facility] Route: PO, Drug Active 2012 Medical form: CAP, BID, Center Dosing Weight 90, kg, Start date: 03/07/13 17:00:00, Duration: 30 day, Stop date: 04/06/13 9:00:00 Protonix 40 mg, 1 tab, PO No Longer [facility] Route: PO, Drug Active 2012 Medical form: ECTAB, Center BID, Dosing Weight 90, kg, Start date: 03/07/13 17:00:00, Duration: 30 day, Stop date: 04/06/13 9:00:00 meloxicam 7.5 mg, 1 tab, PO No Longer [facility] Route: PO, Drug Active 2012 Medical form: TAB, Center BID-Meals, Dosing Weight 90, kg, Start date: 03/07/13 17:00:00, Duration: 30 day, Stop date: 04/06/13 8:00:00 Flexeril 10 mg, 1 tab, PO No Longer [facility] Route: PO, Drug Active 2012 Medical form: TAB, BID, Center Dosing Weight 90, kg, Start date: 03/07/13 17:00:00, Duration: 30 day, Stop date: 04/06/13 9:00:00 NovoLog FlexPen 6 unit, 0.06 mL, SUB-Q No Longer [facility] Route: SUB-Q, Active 2012 Medical Drug form: SOLN, Center TID-Before Meals, Start date: 03/07/13 16:30:00, Duration: 30 day, Stop date: 04/06/13 11:30:00 Humalog 6 unit, Route: SUB-Q No Longer [facility] SUB-Q, Active 2012 Medical TID-Before Center Meals, Dosing Weight 90, kg, Start date: 03/07/13 16:30:00, Duration: 30 day, Stop date: 04/06/13 11:30:00 heparin 5,000 unit, 1 SUB-Q No Longer [facility] mL, Route: Active 2012 Medical SUB-Q, Drug Center form: INJ, Q8H, Dosing Weight 90, kg, Start date: 03/07/13 16:00:00, Duration: 30 day, Stop date: 04/06/13 8:00:00 Effient 10 mg, 1 tab, PO No Longer [facility] Route: PO, Drug Active 2012 Medical form: TAB, Center Daily, Dosing Weight 90, kg, Start date: 03/07/13 13:30:00, Duration: 30 day, Stop date: 04/06/13 9:00:00 magnesium oxide 400 mg, 1 tab, PO No Longer [facility] Route: PO, Drug Active 2012 Medical form: TAB, Center Daily, Dosing Weight 90, kg, Start date: 03/07/13 13:30:00, Duration: 30 day, Stop date: 04/06/13 9:00:00 lisinopril 20 mg, 1 tab, PO No Longer [facility] Route: PO, Drug Active 2012 Medical form: TAB, Center Daily, Dosing Weight 90, kg, Start date: 03/07/13 13:30:00, Duration: 30 day, Stop date: 04/06/13 9:00:00 Reglan 5 mg, 1 tab, PO No Longer [facility] Route: PO, Drug Active 2012 Medical form: TAB, TID, Center Dosing Weight 90, kg, Start date: 03/07/13 13:00:00, Duration: 30 day, Stop date: 04/06/13 9:00:00 ferrous sulfate 325 mg, 1 tab, PO No Longer [facility] Route: PO, Drug Active 2012 Medical form: ECTAB, Center TID, Dosing Weight 90, kg, Start date: 03/07/13 13:00:00, Duration: 30 day, Stop date: 04/06/13 9:00:00 clonazepam 0.5 mg, 1 tab, PO No Longer [facility] Route: PO, Drug Active 2012 Medical form: TAB, TID, Center Dosing Weight 90, kg, Start date: 03/07/13 13:00:00, Duration: 30 day, Stop date: 04/06/13 9:00:00 NovoLog 6 unit, SUB-Q, SUB-Q No Longer [place] TID-Before Active 2012 Medical Meals, Center Substitution Allowed Levemir 12 unit, SUB-Q, SUB-Q Active [place] BID, 2012 Medical Substitution Center Allowed NS 1,000 mL 1,000 mL, Rate: IV No Longer [place] 125 ml/hr, Active 2012 Medical Infuse over: 8 Center hr, Route: IV, Dosing Weight 90 kg, Total Volume: 1,000, Start date: 03/07/13 12:19:00, Duration: 30 day, Stop date: 04/06/13 12:18:00 insulin aspart 2 unit, 0.02 mL, SUB-Q No Longer [facility] Route: SUB-Q, Active 2012 Medical Drug form: SOLN, Center TID-Before Meals, Dosing Weight 90, kg, PRN Blood Glucose Results, Start date: 03/07/13 11:55:00, Duration: 30 day, Stop date: 04/06/13 11:54:00 glucagon 1 mg, Route: IM, IM No Longer [facility] Drug form: Active 2012 Medical PDR/INJ, PRN, Center Dosing Weight 90, kg, PRN Blood Glucose Results, Start date: 03/07/13 11:55:00, Duration: 30 day, Stop date: 04/06/13 11:54:00 Dextrose 50% 12.5 gm, 25 mL, IVP No Longer [facility] Syringe Route: IVP, Drug Active 2012 Medical Form: INJ, Center Dosing Weight 90, kg, PRN, PRN Blood Glucose Results, Start date: 03/07/13 11:55:00, Duration: 30 day, Stop date: 04/06/13 11:54:00 Phenergan 12.5 mg, 0.5 mL, IVPB No Longer [facility] Route: IVPB, Active 2012 Medical Drug form: INJ, Center Q4H, Dosing Weight 90, kg, PRN Nausea & Vomiting, Start date: 03/07/13 11:53:00, Duration: 30 day, Stop date: 04/06/13 11:52:00 albuterol 2.49 mg, 3 mL, NEB No Longer [facility] 0.083% Route: NEB, Drug Active 2012 Medical inhalation form: SOLN, Center solution RQ4H, Dosing Weight 90, kg, PRN as needed for wheezing, Start date: 03/07/13 11:53:00, Duration: 30 day, Stop date: 04/06/13 11:52:00 Zofran 4 mg, 2 mL, IVP No Longer [facility] Route: IVP, Drug Active 2012 Medical form: INJ, Q4H, Center Dosing Weight 90, kg, PRN Nausea, Start date: 03/07/13 11:53:00, Duration: 30 day, Stop date: 04/06/13 11:52:00 acetaminophen-h 1 tab, Route: PO No Longer [facility] ydrocodone 325 PO, Drug Form: Active 2012 Medical mg-10 mg oral TAB, Dosing Center tablet Weight 90, kg, Q4H, PRN Pain Score 4-6, Start date: 03/07/13 11:51:00, Duration: 30 day, Stop date: 04/06/13 11:50:00 acetaminophen-h 1 tab, Route: PO No Longer [facility] ydrocodone 325 PO, Drug Form: Active 2012 Medical mg-5 mg oral TAB, Dosing Center tablet Weight 90, kg, Q4H, PRN Pain Score 1-3, Start date: 03/07/13 11:51:00, Duration: 30 day, Stop date: 04/06/13 11:50:00 acetaminophen 650 mg, 2 tab, PO No Longer [facility] Route: PO, Drug Active 2012 Medical form: TAB, Q4H, Center Dosing Weight 90, kg, PRN Pain 1-3/Temp > 100.4 F, Start date: 03/07/13 11:51:00, Duration: 30 day, Stop date: 04/06/13 11:50:00 morphine 2 mg, 1 mL, IVP No Longer [facility] Sulfate Route: IVP, Drug Active 2012 Medical form: INJ, Q4H, Center Dosing Weight 90, kg, PRN Pain Score 7-10, Start date: 03/07/13 11:51:00, Duration: 30 day, Stop date: 04/06/13 11:50:00 docusate 100 mg, 1 cap, PO No Longer [facility] Route: PO, Drug Active 2012 Medical form: CAP, BID, Center Dosing Weight 90, kg, PRN Constipation, Start date: 03/07/13 11:51:00, Duration: 30 day, Stop date: 04/06/13 11:50:00 Levemir 12 unit, 0.12 SUB-Q No Longer [facility] mL, Route: Active 2012 Medical SUB-Q, Drug Center form: INJ, ONCE, Dosing Weight 90, kg, Start date: 03/07/13 6:10:00, Stop date: 03/07/13 6:10:00 lidocaine-epi 1 ml, Route: SUB-Q No Longer [facility] [id number] SUB-Q, Drug Active 2012 Medical Form: SOLN, Center Dosing Weight 90, kg, ONCE, STAT, Start date: 03/07/13 5:18:00, Stop date: 03/07/13 5:18:00 Insulin regular 99 mL, Rate: IVPB No Longer [facility] 100 unit + Start Insulin Active [...] gm, 25 mL, IVP No Longer [facility] Syringe Route: IVP, Drug Active 2012 Medical Form: INJ, Center Dosing Weight 90, kg, PRN, PRN Blood Glucose Results, Start date: 03/07/13 5:13:00, Duration: 30 day, Stop date: 04/06/13 5:12:00 NS (Bolus) IV 1,000 mL, Rate: IV No Longer [facility] [place] 1,000 mL 1,000 ml/hr, 2012 Medical Infuse over: 1 Center hr, Route: IV, Dosing Weight 90 kg, Total Volume: 1,000, Priority: STAT, Start date: 03/07/13 2:36:00, Duration: 1 doses or times, Stop date: 03/07/13 3:35:00, Bolus DoseBolus Dose magnesium 2 gm, 50 mL, IVPB No Longer [facility] [place] sulfate Route: IVPB, 2012 Medical Drug form: INJ, Center ONCE, Dosing Weight 90, kg, Start date: 03/07/13 2:35:00, Stop date: 03/07/13 2:35:00 Insulin regular 10 unit, 0.1 mL, SUB-Q No Longer [facility] Route: SUB-Q, 2012 Medical Drug form: SOLN, Center ONCE, Dosing Weight 90, kg, Priority: STAT, Start date: 03/07/13 2:16:00, Stop date: 03/07/13 2:16:00 Reglan 10 mg, 2 mL, IVP No Longer [facility] [place] Route: IVP, Drug 2012 Medical form: INJ, ONCE, Center Dosing Weight 90, kg, Priority: STAT, Start date: 03/07/13 2:16:00, Stop date: 03/07/13 2:16:00 NS 1,000 mL 1,000 mL, Rate: IV No Longer [place] 150 ml/hr, 2012 Medical Infuse over: 6.7 Center hr, Route: IV, Dosing Weight 90 kg, Total Volume: 1,000, Start date: 03/07/13 2:15:00, Duration: 30 day, Stop date: 04/06/13 2:14:00 droperidol 1.25 mg, Route: IVP No Longer [facility] IVP, ONCE, 2012 Medical Dosing Weight Center 90, kg, PRN Nausea & Vomiting, Start date: 03/07/13 0:48:00 D5W 1/2NS 1,000 1,000 mL, Rate: IV No Longer [facility] [place] mL 125 ml/hr, 2012 Medical Infuse over: 8 Center hr, Route: IV, Dosing Weight 90 kg, Total Volume: 1,000, Start date: 03/07/13 0:43:00, Duration: 30 day, Stop date: 04/06/13 0:42:00 Insulin regular 4 unit, 0.04 mL, SUB-Q No Longer [facility] Route: SUB-Q, Active 2012 Medical Drug form: SOLN, Center Sliding Scale, Dosing Weight 90, kg, PRN Blood Glucose Results, Start date: 03/07/13 0:01:00, Duration: 30 day, Stop date: 04/06/13 0:00:00 glucagon 1 mg, Route: IM, IM No Longer [facility] Drug form: Active 2012 Medical PDR/INJ, PRN, Center Dosing Weight 90, kg, PRN Blood Glucose Results, Start date: 03/07/13 0:01:00, Duration: 30 day, Stop date: 04/06/13 0:00:00 Dextrose 50% 25 gm, 50 mL, IVP No Longer [facility] Syringe Route: IVP, Drug Active 2012 Medical Form: INJ, Center Dosing Weight 90, kg, PRN, PRN Blood Glucose Results, Start date: 03/07/13 0:01:00, Duration: 30 day, Stop date: 04/06/13 0:00:00 NS 1,000 mL 1,000 mL, Rate: IV No Longer [facility] 125 ml/hr, Active 2012 Medical Infuse over: 8 Center hr, Route: IV, Dosing Weight 90 kg, Total Volume: 1,000, Start date: 03/06/13 23:21:00, Duration: 30 day, Stop date: 04/05/13 23:20:00 NS (Bolus) IV 1,000 mL, Rate: IV No Longer [facility] 1,000 mL 1,000 ml/hr, Active 2012 Medical Infuse over: 1 Center hr, Route: IV, Dosing Weight 90 kg, Total Volume: 1,000, Priority: STAT, Start date: 03/06/13 23:21:00, Duration: 1 doses or times, Stop date: 03/07/13 0:20:00, Bolus DoseBolus Dose [place]ctor 5/325 1 tab, PO, Q6H, PO No Longer [facility] oral tablet PRN, 30 tab, Active 2012 Medical Substitution Center Allowed, Maintenance ferrous sulfate 325 mg, 1 tab, PO Active [place] [facility] 325 mg oral PO, TID, 30 tab, 2012 Medical enteric coated Substitution Center tablet Allowed, ECTAB acetaminophen-h 1 tab, PO, Q4H, PO Active [facility] ydrocodone 500 PRN, for pain, 2012 Medical mg-7.5 mg oral Substitution Center tablet Allowed, Maintenance, TAB meloxicam 7.5 7.5 mg, 1 tab, PO Active [place] [facility] mg oral tablet PO, BID, WITH 2012 Medical FOOD, 30 tab, Center Substitution Allowed, TABWITH FOOD Zocor 40 mg 40 mg, 1 tab, PO Active [place] [facility] oral tablet PO, Bedtime, 30 2012 Medical tab, Center Substitution Allowed, Maintenance ProAir HFA 90 Substitution Active [facility] mcg/inh Allowed, 2012 Medical inhalation Maintenance Center aerosol with adapter Flexeril 10 mg 10 mg, 1 tab, PO Active [place] [facility] oral tablet PO, TID, PRN, 30 2012 Medical tab, for spasm, Center Substitution Allowed, TAB Protonix 40 mg 40 mg, 1 tab, PO Active [place] [facility] oral enteric PO, BID, 30 tab, 2012 Medical coated tablet Substitution Center Allowed, ECTAB Lyrica 150 mg 150 mg, 1 cap, PO Active [place] [facility] oral capsule PO, BID, 90 cap, 2012 [facility] Substitution [place] Allowed, CAP Flagyl 500 mg 500 mg, 1 tab, PO No Longer [facility] oral tablet PO, Q6H, 30 tab, Active 2012 [facility] Substitution [place] Allowed metoclopramide 10 mg, 1 tab, PO Active [place] [facility] 10 mg oral PO, TID, 56 tab, 2012 Medical tablet Substitution Center Allowed, TAB NS (Bolus) IV 1,000 mL, Rate: IV No Longer [facility] 1,000 mL 1,000 ml/hr, Active 2012 Medical Infuse over: 1 Center hr, Route: IV, Dosing Weight 90 kg, Total Volume: 1,000, Priority: STAT, Start date: 03/06/13 21:27:00, Duration: 1 doses or times, Stop date: 03/06/13 22:26:00, Bolus DoseBolus Dose morphine 4 mg, 1 mL, IVP No Longer [facility] Sulfate Route: IVP, Drug Active 2012 Medical form: INJ, ONCE, Center Dosing Weight 90, kg, Start date: 03/06/13 21:27:00, Stop date: 03/06/13 21:27:00 Phenergan 12.5 mg, 0.5 mL, IVPB No Longer [facility] Route: IVPB, Active 2012 Medical Drug form: INJ, Center ONCE, Dosing Weight 90, kg, Priority: STAT, Start date: 03/06/13 21:26:00, Stop date: 03/06/13 21:26:00 ergocalciferol 50,000 IntlUnit, PO No Longer [place] [facility] 1 cap, Route: Active 2012 Medical PO, Drug form: Center CAP, qWeek, Dosing Weight 100, kg, Start date: 12/07/12 9:00:00, Duration: 30 day, Stop date: 01/04/13 9:00:00 erythromycin 250 mg, 1 tab, PO Active [facility] stearate 250 mg PO, Q6H, 56 tab, 2012 Medical oral tablet Substitution Center Allowed, TAB Protonix 40 mg 40 mg, 1 tab, PO Active [facility] oral enteric PO, Daily, 2012 Medical coated tablet tab, Center Substitution Allowed, ECTAB pravastatin 80 80 mg, 1 tab, PO Active [facility] mg oral tablet PO, Daily, 2012 Medical tab, Center Substitution Allowed, TAB insulin detemir 14 unit, 0.14 SUB-Q Active [facility] 100 units/mL mL, SUB-Q, 2012 Medical subcutaneous Bedtime, 100 mL, [place] solution Substitution Allowed, INJ insulin detemir 16 unit, 0.16 SUB-Q Active [facility] 100 units/mL mL, SUB-Q, 2012 Medical subcutaneous Daily, 100 mL, Center solution Substitution Allowed, INJ Protonix 40 mg, Route: IVP No Longer [facility] IVP, Drug form: Active 2012 Medical INJ, Daily, Center Dosing Weight 100, kg, Priority: NOW, Start date: 12/06/12 16:52:00, Duration: 30 day, Stop date: 01/05/13 9:00:00 insulin detemir 16 unit, 0.16 SUB-Q No Longer [place] [facility] mL, Route: Active 2012 Medical SUB-Q, Drug Center form: INJ, Daily, Dosing Weight 100, kg, Start date: 12/06/12 9:00:00, Stop date: 01/04/13 9:00:00 Proctor 7.5/325 1 tab, Route: PO No Longer [place] [facility] oral tablet PO, Drug Form: Active 2012 Medical TAB, Dosing Center Weight 100, kg, ONCE, Start date: 12/06/12 0:19:00, Stop date: 12/06/12 0:19:00 Pravachol 80 mg, 4 tab, PO No Longer [place] Route: PO, Drug Active 2012 Medical form: TAB, Center Bedtime, Start date: 12/05/12 21:00:00, Duration: 30 day, Stop date: 01/03/13 21:00:00 insulin detemir 14 unit, 0.14 SUB-Q No Longer [place] [facility] mL, Route: Active 2012 Medical SUB-Q, Drug Center form: INJ, Bedtime, Dosing Weight 100, kg, Start date: 12/05/12 21:00:00, Stop date: 01/03/13 21:00:00 morphine 4 mg, 1 mL, IVP No Longer [facility] Sulfate Route: IVP, Drug Active 2012 Medical form: INJ, ONCE, Center Dosing Weight 100, kg, Start date: 12/05/12 16:51:00, Stop date: 12/05/12 16:51:00 erythromycin + 250 mg, Route: IVPB No Longer [facility] Sodium Chloride IVPB, Q8H, Active 2012 Medical 0.9% IV 100 mL Dosing Weight Center 100, kg, Start date: 12/05/12 16:00:00, Duration: 30 day, Stop date: 01/04/13 8:00:00 potassium 20 mEq, 100 mL, IVPB No Longer [facility] chloride Route: IVPB, Active 2012 Medical [...] 12/04/12 8:20:00 Phenergan 25 mg, 1 supp, [place] No Longer [place] [facility] Route: IL, Drug Active 2012 Medical form: SUPP, Q4H, Center Dosing Weight 100, kg, PRN Nausea & Vomiting, Start date: 12/04/12 7:58:00, Duration: 30 day, Stop date: 01/03/13 7:57:00 Dextrose 50% 25 gm, 50 mL, IVP No Longer [facility] Syringe Route: IVP, Drug Active 2012 Medical Form: INJ, Center Dosing Weight 100, kg, PRN, PRN Blood Glucose Results, Start date: 12/04/12 7:48:00, Duration: 30 day, Stop date: 01/03/13 7:47:00 glucagon 1 mg, Route: IM, IM No Longer [facility] [place] Drug form: Active 2012 Medical PDR/INJ, PRN, Center Dosing Weight 100, kg, PRN Blood Glucose Results, Start date: 12/04/12 7:48:00, Duration: 30 day, Stop date: 01/03/13 7:47:00 insulin aspart 4 unit, 0.04 mL, SUB-Q No Longer [place] Route: SUB-Q, Active 2012 Medical Drug form: SOLN, Center Bedtime, Dosing Weight 100, kg, PRN Blood Glucose Results, Start date: 12/04/12 7:48:00, Duration: 30 day, Stop date: 01/03/13 7:47:00 Protonix 40 mg, Route: IV No Longer [place] IV, Drug form: Active 2012 Medical INJ, ONCE, Center Dosing Weight 100, kg, Start date: 12/04/12 3:12:00, Stop date: 12/04/12 3:12:00 potassium 20 mEq, 100 mL, IVPB No Longer [place] [facility] chloride Route: IVPB, Active 2012 Medical Q2H, Start date: Center 12/03/12 8:00:00, Stop date: 12/03/12 11:00:00 potassium 40 mEq, Route: IV No Longer [facility] [facility] chloride IV, ONCE, Dosing Active 2012 Medical Weight 100, kg, Center Start date: 12/03/12 7:02:00, Stop date: 12/03/12 7:02:00 NS 1,000 mL 1,000 mL, Rate: IV No Longer [place] [facility] 125 ml/hr, Active 2012 Medical Infuse over: 8 Center hr, Route: IV, kg, Total Volume: 1,000, Start date: 12/02/12 16:54:00, Duration: 30 day, Stop date: 01/01/13 16:53:00 NS (Bolus) IV 1,000 mL, Rate: IV No Longer [facility] 1,000 mL 1,000 ml/hr, Active 2012 Medical Infuse over: 1 Center hr, Route: IV, kg, Total Volume: 1,000, Priority: STAT, Start date: 12/02/12 13:12:00, Duration: 1 doses or times, Stop date: 12/02/12 14:11:00, Bolus DoseBolus Dose NS (Bolus) IV 1,000 mL, Rate: IV No Longer [facility] [facility] 1,000 mL 1,000 ml/hr, Active 2012 Medical Infuse over: 1 Center hr, Route: IV, kg, Total Volume: 1,000, Priority: STAT, Start date: 12/02/12 12:10:00, Duration: 1 doses or times, Stop date: 12/02/12 13:09:00, Bolus DoseBolus Dose insulin detemir 20 unit, 0.2 mL, SUB-Q No Longer [place] [facility] Route: SUB-Q, Active 2012 Medical Drug form: INJ, Center BID, Dosing Weight 100, kg, Start date: 12/02/12 9:00:00, Duration: 30 day, Stop date: 12/31/12 21:00:00 calcium 1,000 mg, 10 mL, IVPB No Longer [place] [facility] chloride + Route: IVPB, Active 2012 Medical Sodium Chloride ONCE, Start Center 0.9% IV 100 mL date: 12/02/12 5:08:00, Stop date: 12/02/12 5:08:00 ceftriaxone 1 gm, Route: IVPB No Longer [place] [facility] IVPB, Drug form: Active 2012 Medical PDR/INJ, Center [id number], Dosing Weight 100, kg, Start date: 12/02/12 5:00:00, Duration: 30 day, Stop date: 12/31/12 5:00:00 calcium 1,000 mg, Route: IVPB No Longer [place] [facility] gluconate IVPB, Drug form: Active 2012 Medical INJ, ONCE, Center Dosing Weight 100, kg, Start date: 12/02/12 5:00:00, Stop date: 12/02/12 5:00:00 Dextrose 50% 25 mL, Route: IVP No Longer [place] [facility] Syringe IVP, Dosing Active 2012 Medical Weight 100, kg, Center PRN, PRN Blood Glucose Results, Start date: 12/02/12 4:51:00, Duration: 30 day, Stop date: 01/01/13 4:50:00 Insulin regular 100 mL, Rate: IVPB No Longer [place] [facility] 100 unit + Start Insulin Active [...] 4 mg, Route: IVP No Longer [place] [facility] IVP, Drug form: Active 2012 Medical INJ, ONCE, Center Dosing Weight 100, kg, Priority: STAT, Start date: 12/02/12 4:47:00, Stop date: 12/02/12 4:47:00 normal saline 1,000 mL, Rate: IV No Longer [place] [facility] 0.9% IV 1,000 1,000 ml/hr, Active 2012 Medical mL Infuse over: 1 Center hr, Route: IV, kg, Total Volume: 1,000, Start date: 12/02/12 3:19:00, Duration: 1 doses or times, Stop date: 12/02/12 4:18:00 Insulin regular 6 unit, 0.06 mL, IV No Longer [place] [facility] Route: IV, Drug Active 2012 Medical form: [facility], [facility] ONCE, Dosing Weight 100, kg, Priority: STAT, Start date: 12/02/12 3:19:00, Stop date: 12/02/12 3:19:00 insulin aspart 3 unit, 0.03 mL, SUB-Q No Longer [place] [facility] Route: SUB-Q, Active 2012 Medical Drug form: SOLN, Center Bedtime, Dosing Weight 100, kg, PRN Blood Glucose Results, Start date: 12/01/12 13:23:00, Duration: 30 day, Stop date: 12/31/12 13:22:00 NS 1,000 mL 1,000 mL, Rate: IV No Longer [place] [facility] 150 ml/hr, Active 2012 Medical Infuse over: 6.7 Center hr, Route: IV, kg, Total Volume: 1,000, Priority: NOW, Start date: 12/01/12 13:10:00, Duration: 1 doses or times, Stop date: 12/01/12 19:51:00 Insulin regular 2 unit, 0.02 mL, SUB-Q No Longer [place] [facility] Route: SUB-Q, Active 2012 Medical Drug form: SOLN, Center Bedtime, Dosing Weight 100, kg, PRN Blood Glucose Results, Start date: 12/01/12 13:08:00, Duration: 30 day, Stop date: 12/31/12 13:07:00 insulin aspart 4 unit, 0.04 mL, SUB-Q No Longer [facility] [facility] Route: SUB-Q, Active 2012 Medical Drug form: SOLN, Center TID-Before Meals, Dosing Weight 100, kg, PRN Blood Glucose Results, Start date: 12/01/12 13:08:00, Duration: 30 day, Stop date: 12/31/12 13:07:00 Dextrose 50% 25 gm, 50 mL, IVP No Longer [facility] [facility] Syringe Route: IVP, Drug Active 2012 Medical Form: INJ, Center Dosing Weight 100, kg, PRN, PRN Blood Glucose Results, Start date: 12/01/12 13:08:00, Duration: 30 day, Stop date: 12/31/12 13:07:00 glucagon 1 mg, Route: IM, IM No Longer [place] [facility] Drug form: Active 2012 Medical PDR/INJ, [...] 16 unit, 0.16 SUB-Q No Longer [facility] mL, Route: Active 2012 Medical SUB-Q, Drug Center form: INJ, Q12H, Dosing Weight 100, kg, Start date: 11/30/12 14:00:00, Duration: 30 day, Stop date: 12/30/12 9:00:00 Zofran 4 mg, 2 mL, IV No Longer [facility] Route: IV, Drug Active 2012 Medical form: INJ, Q6H, Center Dosing Weight 100, kg, PRN Nausea, Start date: 11/30/12 13:32:00, Duration: 30 day, Stop date: 12/30/12 13:31:00 insulin aspart 10 unit, 0.1 mL, SUB-Q No Longer [facility] Route: SUB-Q, Active 2012 Medical Drug form: SOLN, Center TID-Before Meals, Dosing Weight 100, kg, PRN Blood Glucose Results, Start date: 11/30/12 13:26:00, Duration: 30 day, Stop date: 12/30/12 13:25:00 Zofran 4 mg, 2 mL, IV No Longer [place] [facility] Route: IV, Drug Active 2012 Medical form: INJ, Q8H, Center Dosing Weight 100, kg, PRN Nausea, Start date: 11/30/12 11:58:00, Duration: 30 day, Stop date: 12/30/12 11:57:00 Zofran 4 mg, 2 mL, IVP No Longer [facility] Route: IVP, Drug Active 2012 Medical form: INJ, ONCE, Center Dosing Weight 100, kg, Priority: NOW, Start date: 11/30/12 11:57:00, Stop date: 11/30/12 11:57:00 potassium 2 pkt, Route: PO No Longer [facility] phosphate-sodiu PO, Drug Form: Active 2012 Medical m phosphate 250 PDR/REC, ONCE, Center mg-278 mg-164 Start date: mg oral powder 11/30/12 10:00:00, Stop date: 11/30/12 10:00:00 Dextrose 5% 1,000 mL, Rate: IV No Longer [facility] with 0.45% NaCl 150 ml/hr, Active 2012 Medical IV 1,000 mL Infuse over: 6.7 Center hr, Route: IV, kg, Total Volume: 1,000, Start date: 11/30/12 9:12:00, Duration: 30 day, Stop date: 12/30/12 9:11:00 insulin detemir 16 unit, 0.16 SUB-Q No Longer [facility] 11/30[facility] Fei mL, Route: Active 2012 Medical SUB-Q, Drug Center form: INJ, Q12H, Dosing Weight 100, kg, Start date: 11/30/12 9:00:00, Duration: 30 day, Stop date: 12/29/12 21:00:00 heparin 5,000 unit, 1 SUB-Q No Longer [facility] 11/30[facility] Fei mL, Route: Active 2012 Medical SUB-Q, Drug Center form: INJ, Q8H, Dosing Weight 100, kg, Start date: 11/30/12 8:30:00, Duration: 30 day, Stop date: 12/30/12 8:00:00 magnesium 2 gm, Route: IVPB No Longer [facility] 11/30[facility] Fei sulfate IVPB, Drug form: Active 2012 Medical INJ, ONCE, Center Dosing Weight 100, kg, Total dose=2 gm, Start date: 11/30/12 8:05:00, Duration: 1 doses or times, Stop date: 11/30/12 8:05:00 potassium 30 mmol, Route: IVPB No Longer [facility] 11/30/ Fei phosphate IVPB, ONCE, Active 2012 Medical Dosing Weight Center 100, kg, Start date: 11/30/12 8:05:00, Duration: 1 doses or times, Stop date: 11/30/12 8:05:00, For PO4=1.5 - 1.9 mg/dL; Administer when level=3 - 3.4 mEq/L in place of KClFor PO4=1.5 - 1.9 mg/dL; Administer when level=3 - 3.4 mEq/L in place of KCl heparin 5000 5,000 unit, SUB-Q No Longer [facility] [place] units/mL Route: SUB-Q, Active 2012 Medical injectable Drug form: INJ, Center solution Q8H, Dosing Weight 100, kg, Start date: 11/30/12 8:00:00, Duration: 30 day, Stop date: 12/30/12 0:00:00 insulin aspart 10 unit, 0.1 mL, SUB-Q No Longer [facility] [facility] Route: SUB-Q, Active 2012 Medical Drug form: SOLN, Center TID-Before Meals, Dosing Weight 100, kg, PRN Blood Glucose Results, Start date: 11/30/12 7:57:00, Duration: 30 day, Stop date: 12/30/12 7:56:00 glucagon 1 mg, Route: IM, IM No Longer [facility] Drug form: Active 2012 Medical PDR/INJ, PRN, Center Dosing Weight 100, kg, PRN Blood Glucose Results, Start date: 11/30/12 7:57:00, Duration: 30 day, Stop date: 12/30/12 7:56:00 Dextrose 50% 25 gm, 50 mL, IVP No Longer [facility] [facility] Syringe [...] 5,000 unit, 1 SUB-Q No Longer [facility] 11/30[facility] units/mL mL, Route: Active 2012 Medical [...] 40 mg, 1 tab, PO No Longer [place] [facility] Route: PO, Drug Active 2012 Medical form: TAB, Center Bedtime, Dosing Weight 101.364, kg, Start date: 11/29/12 21:00:00, Duration: 30 day, Stop date: 12/28/12 21:00:00 Cymbalta 60 mg, 1 cap, PO No Longer [place] [facility] Route: PO, Drug Active 2012 Medical form: DRC, Center Bedtime, Dosing Weight 101.364, kg, Start date: 11/29/12 21:00:00, Stop date: 12/28/12 21:00:00 ceftriaxone 1 gm, Route: IVPB No Longer [facility] IVPB, Drug form: Active 2012 Medical PDR/INJ, Center [id number], Dosing Weight 100, kg, Start date: 11/29/12 20:00:00, Duration: 30 day, Stop date: 12/28/12 20:00:00 hydrALAZINE 5 mg, 0.25 mL, IV No Longer [facility] Route: IV, Drug Active 2012 Medical form: INJ, Q4H, Center Dosing Weight 100, kg, PRN Hypertension, Start date: 11/29/12 19:42:00, Duration: 30 day, Stop date: 12/29/12 19:41:00 Phenergan 12.5 mg, 0.5 mL, IVPB No Longer [facility] Route: IVPB, Active 2012 Medical Drug form: INJ, Center Q4H, Dosing Weight 100, kg, PRN Nausea & Vomiting, Start date: 11/29/12 17:56:00, Duration: 30 day, Stop date: 12/29/12 17:55:00 clonazepam 0.5 mg, 1 tab, PO No Longer [facility] [place] Route: PO, Drug Active 2012 Medical form: [...] 1,000 mL, Rate: IV No Longer Sush[facility] mL 200 ml/hr, Active 2012 Medical Infuse over: 5 Center hr, Route: IV, kg, Total Volume: 1,000, Start date: 11/29/12 14:41:00, Stop date: 12/29/12 14:40:00 Sodium Chloride 1,000 mL, Rate: IV No Longer [facility] 0.9% IV 1,000 200 ml/hr, Active 2012 Medical mL Infuse over: 5 Center hr, Route: IV, kg, Total Volume: 1,000, Start date: 11/29/12 14:41:00, Stop date: 12/29/12 14:45:00 Insulin regular 99 mL, Rate: IV No Longer [facility] 11/29[facility] 100 unit [...] gm, 25 mL, IVP No Longer [facility] Syringe Route: IVP, Drug Active 2012 Medical Form: INJ, Center Dosing Weight 100, kg, PRN, PRN Blood Glucose Results, Start date: 11/29/12 12:39:00, Duration: 30 day, Stop date: 12/29/12 12:38:00 Zofran 4 mg, 2 mL, IV No Longer [facility] [place] Route: IV, Drug Active 2012 Medical form: INJ, Q4H, Center Dosing Weight 100, kg, PRN as needed for nausea/vomiting, Start date: 11/29/12 9:07:00, Duration: 30 day, Stop date: 12/29/12 9:06:00 NIFEdipine 90 mg, 1 tab, PO No Longer [place] [facility] Route: PO, Drug Active 2012 Medical form: ERTAB, Center Daily, Dosing Weight 101.364, kg, Start date: 11/29/12 9:00:00, Duration: 30 day, Stop date: 12/28/12 9:00:00 clonazepam 0.5 mg, 1 tab, PO No Longer [facility] [place] Route: PO, Drug Active 2012 Medical form: TAB, TID, Center Dosing Weight 101.364, kg, Start date: 11/29/12 9:00:00, Duration: 30 day, Stop date: 12/28/12 17:00:00 lisinopril 20 mg, 1 tab, PO No Longer [facility] Route: PO, Drug Active 2012 Medical form: TAB, Q12H, Center Dosing Weight 101.364, kg, Start date: 11/29/12 9:00:00, Duration: 30 day, Stop date: 12/28/12 21:00:00 magnesium oxide 400 mg, 1 tab, PO No Longer [facility] Route: PO, Drug Active 2012 Medical form: TAB, Center Daily, Dosing Weight 101.364, kg, Start date: 11/29/12 9:00:00, Duration: 30 day, Stop date: 12/28/12 9:00:00 Effient 10 mg, 1 tab, PO No Longer [place] [facility] Route: PO, Drug Active 2012 Medical form: TAB, Center Daily, Dosing Weight 101.364, kg, Start date: 11/29/12 9:00:00, Duration: 30 day, Stop date: 12/28/12 9:00:00 Levemir 8 unit, 0.08 mL, SUB-Q No Longer [place] [facility] Route: SUB-Q, Active 2012 Medical Drug form: INJ, Center BID, Dosing Weight 101.364, kg, Start date: 11/29/12 9:00:00, Duration: 30 day, Stop date: 12/28/12 17:00:00 Toprol-XL 100 100 mg, 1 tab, PO No Longer [place] mg oral tablet, Route: PO, Drug Active 2012 Medical extended form: ERTAB, Center release Daily, Start date: 11/29/12 9:00:00, Duration: 30 day, Stop date: 12/28/12 9:00:00 aspirin 81 mg, 1 tab, PO No Longer [place] [facility] Route: PO, Drug Active 2012 Medical [...] mg, 0.4 mL, SUB-Q No Longer [facility] Route: SUB-Q, Active 2012 Medical Drug form: INJ, Center [id number], Dosing Weight 101.364, kg, Start date: 11/29/12 4:00:00, Duration: 30 day, Stop date: 12/28/12 4:00:00 Phenergan 12.5 mg, 0.25 IVPB No Longer [place] [facility] mL, Route: IVPB, Active 2012 Medical Drug form: INJ, Center Q4H, Dosing Weight 101.364, kg, Start date: 11/29/12 4:00:00, Duration: 30 day, Stop date: 12/29/12 0:00:00 tramadol 50 mg 50 mg, 1 tab, PO No Longer [facility] oral tablet Route: PO, Drug Active 2012 Medical form: TAB, Q4H, Center Dosing Weight 101.364, kg, PRN as needed for pain, Start date: 11/29/12 3:46:00, Duration: 30 day, Stop date: 12/29/12 3:45:00 insulin aspart 3 unit, 0.03 mL, SUB-Q No Longer [facility]o [facility] Route: SUB-Q, Active 2012 Medical Drug form: SOLN, Center TID-Before Meals, Dosing Weight 101.364, kg, PRN Blood Glucose Results, Start date: 11/29/12 3:26:00, Duration: 30 day, Stop date: 12/29/12 3:25:00 Dextrose 50% 12.5 gm, 25 mL, IVP No Longer [place] [facility] Syringe Route: IVP, Drug Active 2012 Medical Form: INJ, Center Dosing Weight 101.364, kg, PRN, PRN Blood Glucose Results, Start date: 11/29/12 3:26:00, Duration: 30 day, Stop date: 12/29/12 3:25:00 glucagon 1 mg, Route: IM, IM No Longer [facility] Drug form: Active 2012 Medical PDR/INJ, PRN, Center Dosing Weight 101.364, kg, PRN Blood Glucose Results, Start date: 11/29/12 3:26:00, Duration: 30 day, Stop date: 12/29/12 3:25:00 acetaminophen 650 mg, 20.3 mL, PO No Longer [facility] Route: PO, Drug Active 2012 Medical form: LIQ, Q4H, Center Dosing Weight 101.364, kg, PRN Pain 1-3/Temp > 100.4 F, Start date: 11/29/12 3:25:00, Duration: 30 day, Stop date: 12/29/12 3:24:00 docusate 100 mg, 1 cap, PO No Longer [facility] Route: PO, Drug Active 2012 Medical form: CAP, BID, Center Dosing Weight 101.364, kg, PRN Constipation, Start date: 11/29/12 3:25:00, Duration: 30 day, Stop date: 12/29/12 3:24:00 D5W 1/2NS 1,000 1,000 mL, Rate: IV No Longer [facility] mL 75 ml/hr, Infuse Active 2012 Medical over: 13.3 hr, Center Route: IV, kg, Total Volume: 1,000, Start date: 11/29/12 3:21:00, Duration: 30 day, Stop date: 12/29/12 3:20:00 NS 0.45% IV 1,000 mL, Rate: IV No Longer [facility] 1000 mL 125 ml/hr, Active 2012 Medical Infuse over: 8 Center hr, Route: IV, Dosing Weight 101.364 kg, Total Volume: 1,000, Start date: 11/29/12 3:18:00, Duration: 30 day, Stop date: 12/29/12 3:17:00 Reglan 10 mg, 2 mL, IVP No Longer [facility] Route: IVP, Drug Active 2012 Medical form: INJ, ONCE, Center Dosing Weight 101.364, kg, Priority: STAT, Start date: 11/29/12 2:31:00, Stop date: 11/29/12 2:31:00 Zofran 8 mg, Route: IVP No Longer [facility] IVP, Drug form: Active 2012 Medical INJ, ONCE, Center Dosing Weight 101.364, kg, Priority: STAT, Start date: 11/29/12 1:52:00, Stop date: 11/29/12 1:52:00 Lortab 500 5 ml, PO, Q6H, PO No Longer [facility] mg-7.5 mg/15 mL PRN, 120 mL, for Active 2012 Medical oral elixir pain, Center Substitution Allowed, Maintenance, ELIX Phenergan 25 mg 1 supp, [place], Q6H, [place] Active [facility] rectal PRN, 9 supp, 2012 Medical suppository Nausea & Center Vomiting, Substitution Allowed Phenergan 12.5 mg, 0.5 mL, IVPB No Longer [place] [facility] Route: IVPB, Active 2012 Medical Drug form: INJ, Center ONCE, Dosing Weight 101.364, kg, Priority: STAT, Start date: 11/29/12 0:56:00, Stop date: 11/29/12 0:56:00 Zofran 4 mg, 2 mL, IVP No Longer [facility] 11/29[facility] Fei Route: IVP, Drug Active 2012 Medical form: INJ, ONCE, Center Dosing Weight 101.364, kg, Priority: STAT, Start date: 11/28/12 23:49:00, Stop date: 11/28/12 23:49:00 Phenergan 12.5 mg, 0.5 mL, IVPB No Longer [place] 11/29[facility] Fei Route: IVPB, Active 2012 Medical Drug form: INJ, Center ONCE, Dosing Weight 101.364, kg, Priority: STAT, Start date: 11/28/12 19:29:00, Stop date: 11/28/12 19:29:00 Zofran 4 mg, 2 mL, IVP No Longer [place] 11/29[facility] Fei Route: IVP, Drug Active 2012 [...] 5 ml, Route: IVP No Longer [facility] 0.9% IVP, Drug Form: Active 2012 Medical INJ, Dosing Center Weight 101.364, kg, PRN, PRN Line Flush, Start date: 11/28/12 19:29:00, Duration: 30 day, Stop date: 12/28/12 19:28:00 calcium 2,000 mg, 20 mL, IVPB No Longer [facility] gluconate + Route: IVPB, Active 2012 Medical Sodium Chloride ONCE, Dosing Center 0.9% IV 80 mL Weight 103.21, kg, Start date: 11/17/12 11:02:00, Stop date: 11/17/12 11:02:00 magnesium 2 gm, 50 mL, IVPB No Longer [facility] sulfate Route: IVPB, Active 2012 Medical Drug form: INJ, Center Q2H, Dosing Weight 103.21, kg, Total dose=4 gm, Start date: 11/17/12 10:00:00, Duration: 2 doses or times, Stop date: 11/17/12 12:00:00 aspirin 81 mg, 1 tab, PO No Longer [facility] Route: PO, Drug Active 2012 Medical form: ECTAB, Center Daily, Dosing Weight 100, kg, Start date: 11/17/12 9:00:00, Duration: 30 day, Stop date: 12/16/12 9:00:00 simvastatin 40 mg, 1 tab, PO No Longer [facility] Route: PO, Drug Active 2012 Medical form: TAB, Center Daily, Dosing Weight 100, kg, Start date: 11/17/12 9:00:00, Duration: 30 day, Stop date: 12/16/12 9:00:00 prasugrel 10 mg, 1 tab, PO No Longer [facility] Route: PO, Drug Active 2012 Medical form: TAB, Center Daily, Dosing Weight 100, kg, Start date: 11/17/12 9:00:00, Duration: 30 day, Stop date: 12/16/12 9:00:00 NIFEdipine 90 mg, 1 tab, PO No Longer [facility] Route: PO, Drug Active 2012 Medical form: ERTAB, Center Daily, Dosing Weight 100, kg, Start date: 11/17/12 9:00:00, Duration: 30 day, Stop date: 12/16/12 9:00:00 Toprol-XL 100 100 mg, 1 tab, PO No Longer [facility] mg oral tablet, Route: PO, Drug Active 2012 Medical extended form: ERTAB, Center release Daily, Start date: 11/17/12 9:00:00, Duration: 30 day, Stop date: 12/16/12 9:00:00 magnesium oxide 400 mg, 1 tab, PO No Longer [facility] Route: PO, Drug Active 2012 Medical form: TAB, Center Daily, Dosing Weight 100, kg, Start date: 11/17/12 9:00:00, Duration: 30 day, Stop date: 12/16/12 9:00:00 insulin detemir 15 unit, 0.15 SUB-Q No Longer [place] [facility] mL, Route: Active 2012 Medical SUB-Q, Drug Center form: INJ, Daily, Dosing Weight 100, kg, Start date: 11/17/12 9:00:00, Duration: 30 day, Stop date: 12/16/12 9:00:00 Zofran 8 mg, 4 mL, IV No Longer [facility] Route: IV, Drug Active 2012 Medical form: INJ, Q4H, Center Dosing Weight 103.21, kg, PRN as needed for nausea/vomiting, Start date: 11/17/12 8:56:00, Duration: 30 day, Stop date: 12/17/12 8:55:00 Reglan 10 mg 10 mg, 1 tab, PO No Longer [facility] oral tablet Route: PO, Drug Active 2012 Medical form: TAB, Center TID-Before Meals, Dosing Weight 100, kg, Start date: 11/17/12 7:30:00, Duration: 30 day, Stop date: 12/16/12 16:30:00 insulin aspart 4 unit, 0.04 mL, SUB-Q No Longer [facility] Route: SUB-Q, Active 2012 Medical Drug form: SOLN, Center TID-Before Meals, Dosing Weight 100, kg, Start date: 11/17/12 7:30:00, Duration: 30 day, Stop date: 12/16/12 16:30:00 Cymbalta 120 mg, 2 cap, PO No Longer [facility] Route: PO, Drug Active 2012 Medical form: DRC, Center Bedtime, Dosing Weight 100, kg, Start date: 11/16/12 21:00:00, Duration: 30 day, Stop date: 12/15/12 21:00:00 lisinopril 20 mg, 1 tab, PO No Longer [facility] Route: PO, Drug Active 2012 Medical form: TAB, Q12H, Center Dosing Weight 100, kg, Start date: 11/16/12 21:00:00, Duration: 30 day, Stop date: 12/16/12 9:00:00 insulin detemir 12 unit, 0.12 SUB-Q No Longer [facility] mL, Route: Active 2012 Medical SUB-Q, Drug Center form: INJ, Bedtime, Dosing Weight 100, kg, Start date: 11/16/12 21:00:00, Duration: 30 day, Stop date: 12/15/12 21:00:00 clonazepam 0.5 mg, 1 tab, PO No Longer [facility] Route: PO, Drug Active 2012 Medical form: TAB, TID, Center Dosing Weight 100, kg, Start date: 11/16/12 20:30:00, Duration: 30 day, Stop date: 12/16/12 17:00:00 Neutra-Phos 1 pkt, Route: PO No Longer [facility] PO, Drug Form: Active 2012 Medical PDR/REC, Dosing Center Weight 100, kg, TID-Before Meals, Start date: 11/16/12 20:30:00, Duration: 30 day, Stop date: 12/16/12 16:30:00 enoxaparin 40 mg, 0.4 mL, SUB-Q No Longer [facility] Route: SUB-Q, Active 2012 Medical Drug form: INJ, Center [id number], Dosing Weight 100, kg, Start date: 11/16/12 19:00:00, Duration: 30 day, Stop date: 12/15/12 19:00:00 Sodium Chloride 1,000 mL, Rate: IV No Longer [facility] 0.9% IV 1,000 125 ml/hr, Active 2012 Medical mL Infuse over: 8 Center hr, Route: IV, kg, Total Volume: 1,000, Start date: 11/16/12 18:10:00, Duration: 30 day, Stop date: 12/16/12 18:09:00 insulin aspart 10 unit, 0.1 mL, SUB-Q No Longer [facility] Route: SUB-Q, Active 2012 Medical Drug form: SOLN, Center TID-Before Meals, Dosing Weight 100, kg, PRN Blood Glucose Results, Start date: 11/16/12 18:10:00, Duration: 30 day, Stop date: 12/16/12 18:09:00 Dextrose 50% 12.5 gm, 25 mL, IVP No Longer [facility] Syringe Route: IVP, Drug Active 2012 Medical Form: INJ, Center Dosing Weight 100, kg, PRN, PRN Blood Glucose Results, Start date: 11/16/12 18:10:00, Duration: 30 day, Stop date: 12/16/12 18:09:00 glucagon 1 mg, Route: IM, IM No Longer [facility] Drug form: Active 2012 Medical PDR/INJ, PRN, Center Dosing Weight 100, kg, PRN Blood Glucose Results, Start date: 11/16/12 18:10:00, Duration: 30 day, Stop date: 12/16/12 18:09:00 [place] 5/325 1 tab, Route: PO No Longer [place] oral tablet PO, Drug Form: Active 2012 [...] mg, 2 tab, PO No Longer [facility] Route: PO, Drug Active 2012 Medical form: TABDIS, Center Q8H, Dosing Weight 100, kg, PRN Nausea & Vomiting, Start date: 11/16/12 18:01:00, Stop date: 12/16/12 18:00:00, nauea ondansetron 8 8 mg, 1 tab, PO, PO Active [place] [facility] mg oral tablet, Q8H, PRN, 2012 Medical disintegrating Dissolve under Center tongue, 10 tab, as needed for nausea/vomiting, Substitution AllowedDissolve under tongue Effient 10 mg 10 mg, 1 tab, PO Active [place] oral tablet PO, Daily, 30 2012 Medical tab, Center Substitution Allowed, TAB tramadol 50 mg 50 mg, 1 tab, PO Active [place] 11/16[facility] [place] oral tablet PO, Q4H, PRN, 60 2012 Medical tab, for pain, Center Substitution Allowed, TAB clonazepam 0.5 0.5 mg, 1 tab, PO Active [place] 11/16[facility] [place] mg oral tablet PO, TID, 2012 [...] Duration: 1 doses or times, Dose=2.2ml/kg, Max [id number] -- "To be infused by Radiology Staff ONLY"Dose=2.2ml/ kg, Max [id number] -- "To be infused by Radiology Staff [...] IVP No Longer [facility] Route: IVP, Drug Active 2012 Medical [...] mg, 1 tab, SL No Longer [facility] 0.4 mg Route: SL, Drug Active 2012 Medical sublingual form: TAB, ONCE, Center tablet Dosing Weight 100, kg, Start date: 11/16/12 13:30:00, Stop date: 11/16/12 13:30:00 aspirin 324 mg, 4 tab, CHEW No Longer [facility] Route: CHEW, Active 2012 Medical Drug form: Center CHEWTAB, ONCE, Dosing Weight 100, kg, Priority: STAT, Start date: 11/16/12 13:29:00, Stop date: 11/16/12 13:29:00 Zofran 8 mg, 4 mL, IVP No Longer [facility] Route: IVP, Drug Active 2012 Medical form: INJ, ONCE, Center Dosing Weight 100, kg, Priority: STAT, Start date: 11/16/12 13:17:00, Stop date: 11/16/12 13:17:00 Saline Flush 5 mL, Route: IVP No Longer [facility] 0.9% IVP, Drug Form: Active 2012 Medical INJ, Dosing Center Weight 100, kg, Q8H, PRN Line Flush, Start date: 11/16/12 13:16:00, Duration: 30 day, Stop date: 12/16/12 13:15:00, Administer at least once every 8 hoursAdminister at least once every 8 hours Reglan 10 mg 10 mg, 1 tab, PO Active [facility] oral tablet PO, TID-Before 2012 Medical Meals, PRN, 42 Center tab, nausea, Substitution Allowed, TAB [place] 5/325 1 tab, PO, Q6H, PO Active [facility] oral tablet PRN, 10 tab, 2012 Medical Pain, Center Substitution Allowed, Maintenance, TAB ondansetron 8 8 mg, 1 tab, PO, PO Active [facility] 11/14[facility] [place] mg oral tablet, Q8H, PRN, 60 2012 Medical disintegrating tab, 1, 1, Center Nausea, Substitution Allowed, TABDIS insulin detemir 12 unit, 0.12 SUB-Q Active [facility] 100 units/mL mL, SUB-Q, 2012 Medical subcutaneous Bedtime, 4 mL, Center solution Substitution Allowed, INJ insulin detemir 15 unit, 0.15 SUB-Q Active [facility] [place] 100 units/mL mL, SUB-Q, 2012 Medical subcutaneous Daily, 5 mL, Center solution Substitution Allowed, INJ Zofran 4 mg, 1 tab, PO No Longer [facility] [place] Route: PO, Drug Active 2012 Medical form: TAB, Q8H, Center Dosing Weight 100, kg, Start date: 11/14/12 16:00:00, Duration: 30 day, Stop date: 12/14/12 8:00:00 Reglan 10 mg 10 mg, 1 tab, PO No Longer [facility] oral tablet Route: PO, Drug Active 2012 Medical form: TAB, Center TID-Before Meals, Dosing Weight 100, kg, Start date: 11/14/12 11:30:00, Duration: 30 day, Stop date: 12/14/12 7:30:00 calcium 2,000 mg, 20 mL, IVPB No Longer [facility] gluconate + Route: IVPB, Active 2012 Medical Sodium Chloride Drug form: INJ, Center 0.9% IV 100 mL Q2H, Dosing Weight 100, kg, Total ifro=2678 mg, Start date: 11/14/12 8:00:00, Duration: 2 doses or times, Stop date: 11/14/12 10:00:00 magnesium 2 gm, 50 mL, IVPB No Longer [facility] sulfate Route: IVPB, Active 2012 Medical [...] 20 mEq, 100 mL, IVPB No Longer [facility] chloride Route: IVPB, Active 2012 Medical Drug form: INJ, Center ONCE, Dosing Weight 100, kg, Total dose=20mEq, Start date: 11/13/12 7:58:00, Duration: 1 doses or times, Stop date: 11/13/12 7:58:00, For K=3.5 - 3.9 mEq/LFor K=3.5 - 3.9 mEq/L calcium 1,000 mg, 10 mL, IVPB No Longer [facility] gluconate + Route: IVPB, Active 2012 Medical Sodium Chloride ONCE, Dosing Center 0.9% IV 50 mL Weight 100, kg, Start date: 11/13/12 7:56:00, Stop date: 11/13/12 7:56:00 Reglan 10 mg, 2 mL, IVP No Longer [facility] Route: IVP, Drug Active 2012 Medical form: INJ, Center Before Meals & Bedtime, Dosing Weight 100, kg, Start date: 11/12/12 16:30:00, Duration: 30 day, Stop date: 12/12/12 11:30:00 [place] 5/325 1 tab, Route: PO No Longer [facility] [place] oral tablet PO, Drug Form: Active jaida 2012 Medical TAB, Dosing Center Weight 100, kg, Q6H, PRN Pain, Start date: 11/12/12 16:07:00, Duration: 30 day, Stop date: 12/12/12 16:06:00 Reglan 10 mg, Route: IVP No Longer [facility] IVP, Q6H, Dosing Active 2012 Medical Weight 100, kg, Center PRN Nausea & Vomiting, Start date: 11/12/12 12:35:00, Duration: 30 day, Stop date: 12/12/12 12:34:00 insulin detemir 15 unit, Route: SUB-Q No Longer [facility] SUB-Q, ONCE, Active 2012 Medical Dosing Weight Center 100, kg, Priority: NOW, Start date: 11/12/12 10:38:00, Stop date: 11/12/12 10:38:00 heparin 7,500 unit, 1.5 SUB-Q No Longer [place] 11/12[facility] mL, Route: Active 2012 Medical SUB-Q, Drug Center form: INJ, Q8H, Start date: 11/11/12 18:00:00, Duration: 30 day, Stop date: 12/11/12 16:00:00 Levemir FlexPen 15 unit, 0.15 SUB-Q No Longer [place] 11/11[facility] mL, Route: Active 2012 Medical SUB-Q, Drug Center form: INJ, Daily, Dosing Weight 100, kg, Start date: 11/11/12 10:00:00, Stop date: 12/11/12 9:00:00 magnesium 2 gm, 50 mL, IVPB No Longer [facility] sulfate Route: IVPB, Active 2012 Medical Drug form: INJ, Center ONCE, Dosing Weight 100, kg, Total dose=2 gm, Start date: 11/11/12 9:04:00, Duration: 1 doses or times, Stop date: 11/11/12 9:04:00 insulin detemir 20 unit, 0.2 mL, SUB-Q No Longer [facility] 11/11[facility] Route: SUB-Q, Active 2012 Medical Drug form: INJ, Center Daily, Dosing Weight 100, kg, Start date: 11/11/12 9:00:00, Stop date: 12/10/12 9:00:00 Toradol 15 15 mg, 1 mL, IV No Longer [facility] mg/mL Route: IV, Drug Active 2012 Medical injectable form: INJ, ONCE, Center solution Dosing Weight 100, kg, Start date: 11/11/12 0:56:00, Stop date: 11/11/12 0:56:00 Zofran 4 mg, 2 mL, IV No Longer [facility] Route: IV, Drug Active 2012 Medical form: INJ, Q8H, Center Dosing Weight 100, kg, Start date: 11/11/12 0:00:00, Duration: 30 day, Stop date: 12/10/12 16:00:00 normal saline 1,000 mL, Rate: IV No Longer [facility] 0.9% IV 1,000 100 ml/hr, Active 2012 Medical mL Infuse over: 10 Center hr, Route: IV, kg, Total Volume: 1,000, Start date: 11/10/12 20:17:00, Duration: 30 day, Stop date: 12/10/12 20:16:00 Sodium Chloride 1,000 mL, Rate: IV No Longer [facility] [place] 0.9% (Bolus) IV 1,000 ml/hr, Active 2012 Medical 1,000 mL Infuse over: 1 Center hr, Route: IV, kg, Total Volume: 1,000, Priority: STAT, Start date: 11/10/12 20:17:00, Duration: 1 doses or times, Stop date: 11/10/12 21:16:00, Bolus DoseBolus Dose insulin detemir 10 unit, 0.1 mL, SUB-Q No Longer Ada [facility] Route: SUB-Q, Active 2012 Medical Drug form: INJ, Center ONCE, Dosing Weight 100, kg, Priority: NOW, Start date: 11/10/12 11:40:00, Stop date: 11/10/12 11:40:00 Zofran ODT 4 mg, 1 tab, PO No Longer Juanjo [place] Route: PO, Drug Active 2012 Medical form: TABDIS, Center Q8H, Dosing Weight 100, kg, PRN Nausea, Start date: 11/10/12 11:04:00, Duration: 30 day, Stop date: 12/10/12 11:03:00 Phenergan 12.5 mg, 0.5 mL, IM No Longer Ahmad [place] Route: IM, Drug Active 2012 Medical form: INJ, PRN, Center Dosing Weight 100, kg, PRN as needed for nausea/vomiting, Start date: 11/10/12 10:00:00, Duration: 30 day, Stop date: 12/10/12 10:59:00 insulin detemir 16 unit, 0.16 SUB-Q No Longer Maggin [place] mL, Route: Active 2012 Medical SUB-Q, Drug Center form: INJ, ONCE, Dosing Weight 100, kg, Start date: 11/10/12 0:20:00, Stop date: 11/10/12 0:20:00 NovoLog 6 unit, 0.06 mL, SUB-Q No Longer Ada [facility] Route: SUB-Q, Active 2012 Medical Drug form: SOLN, Center TID-Before Meals, Dosing Weight 100, kg, Start date: 11/09/12 16:30:00, Duration: 30 day, Stop date: 12/09/12 11:30:00 insulin aspart 7 unit, 0.07 mL, SUB-Q No Longer Loida [facility] Route: SUB-Q, Active 2012 Medical Drug form: SOLN, Center ONCE, Dosing Weight 100, kg, Start date: 11/09/12 13:24:00, Stop date: 11/09/12 13:24:00 insulin detemir 20 unit, 0.2 mL, SUB-Q No Longer Juanjo [facility] Route: SUB-Q, Active 2012 Medical Drug form: INJ, Center Daily, Dosing Weight 100, kg, Start date: 11/09/12 9:00:00, Duration: 30 day, Stop date: 12/08/12 9:00:00 morphine 1 mg, 0.5 mL, IV No Longer Chavez [facility] Sulfate Route: IV, Drug Active 2012 Medical form: INJ, ONCE, Center Dosing Weight 100, kg, Start date: 11/09/12 5:28:00, Stop date: 11/09/12 5:28:00 insulin detemir 12 unit, 0.12 SUB-Q No Longer Olejarski [facility] mL, Route: Active 2012 Medical SUB-Q, Drug Center form: INJ, Bedtime, Dosing Weight 100, kg, Start date: 11/08/12 21:00:00, Stop date: 12/07/12 21:00:00 morphine 2 mg, 1 mL, IVP No Longer Quintanilla [facility] Sulfate Route: IVP, Drug Active 2012 Medical form: INJ, ONCE, Center Dosing Weight 100, kg, Start date: 11/08/12 18:34:00, Stop date: 11/08/12 18:34:00 ampicillin + 1,500 mg, Route: IVPB No Longer Aristides [facility] Sodium Chloride IVPB, Drug form: Active 2012 Medical 0.9% IV 100 mL PDR/INJ, [id number], Center Dosing Weight 100, kg, Start date: 11/08/12 18:00:00, Duration: 30 day, Stop date: 12/08/12 12:00:00 ciprofloxacin 500 mg, 1 tab, PO No Longer Maggin [facility] Route: PO, Drug Active 2012 Medical form: TAB, Center [id number], Dosing Weight 100, kg, Start date: 11/08/12 17:00:00, Duration: 30 day, Stop date: 12/08/12 5:00:00 Rocephin 1 gm, Route: IVPB No Longer Janet Fie IVPB, Drug form: Active 2012 Medical PDR/INJ, ONCE, Center Dosing Weight 100, kg, Start date: 11/08/12 13:11:00, Stop date: 11/08/12 13:11:00 insulin aspart 2 unit, 0.02 mL, SUB-Q No Longer Domingojapowerki [facility] Route: SUB-Q, Active 2012 Medical Drug form: SOLN, Center TID-Before Meals, Dosing Weight 100, kg, PRN Blood Glucose Results, Start date: 11/08/12 10:45:00, Duration: 30 day, Stop date: 12/08/12 10:44:00 insulin aspart 2 unit, 0.02 mL, SUB-Q No Longer Olejapowerki [facility] Route: SUB-Q, Active 2012 Medical Drug form: SOLN, Center TID-Before Meals, Dosing Weight 100, kg, PRN Blood Glucose Results, Start date: 11/07/12 18:47:00, Duration: 30 day, Stop date: 12/07/12 18:46:00 magnesium 2 gm, 50 mL, IVPB No Longer Maggin [facility] sulfate Route: IVPB, Active 2012 Medical Drug form: INJ, Center Q2H, Dosing Weight 100, kg, Start date: 11/07/12 8:00:00, Duration: 2 doses or times, Stop date: 11/07/12 10:00:00, For Mg=1.5 - 1.7 mg/dLFor Mg=1.5 - 1.7 mg/dL magnesium 2 gm, Route: IVPB No Longer Loida [facility] sulfate IVPB, Drug form: Active 2012 Medical SOLN, ONCE, Center Dosing Weight 100, kg, Start date: 11/07/12 7:42:00, Duration: 1 doses or times, Stop date: 11/07/12 7:42:00, For Mg=1.8 - 2 mg/dLFor Mg=1.8 - 2 mg/dL Protonix 40 mg, Route: IVP No Longer Quintanilla [facility] IVP, Drug form: Active 2012 Medical INJ, Before Center Breakfast, Dosing Weight 100, kg, Start date: 11/07/12 7:30:00, Duration: 30 day, Stop date: 12/06/12 7:30:00 insulin aspart 10 unit, 0.1 mL, SUB-Q No Longer Ahmad [facility] Route: SUB-Q, 2012 Medical Drug form: WHIT, [place] ONCE, Dosing Weight 100, kg, Start date: 11/06/12 13:32:00, Stop date: 11/06/12 13:32:00 adenosine 84 mg, Route: IVP No Longer Ahmad [facility] IVP, ONCE, Active 2012 Medical Dosing Weight Center 100, kg, Priority: Routine, Start date: 11/06/12 10:20:00, Stop date: 11/06/12 10:20:00 Insulin regular 10 unit, 0.1 mL, SUB-Q No Longer Maggin [facility] Route: SUB-Q, 2012 Medical [facility] [place] ONCE, Dosing Weight 100, kg, Start date: 11/06/12 9:47:00, Stop date: 11/06/12 9:47:00 insulin aspart 10 unit, 0.1 mL, SUB-Q No Longer Maggin [facility] Route: SUB-Q, 2012 Medical Drug form: [facility], [place] ONCE, Dosing Weight 100, kg, Start date: 11/06/12 9:43:00, Stop date: 11/06/12 9:43:00 Lactated 1,000 mL, Rate: IV No Longer Maggin [facility] Ringers (Bolus) 1,000 ml/hr, Active 2012 Medical IV 1,000 mL Infuse over: 1 Center hr, Route: IV, kg, Total Volume: 1,000, Bolus Dose, Priority: STAT, Start date: 11/06/12 9:14:00, Duration: 1 doses or times, Stop date: 11/06/12 10:13:00 Insulin regular 9 unit, 0.09 mL, SUB-Q No Longer Olejarski Fei Route: [...] Drug Active 2012 Medical extended form: ERTAB, [place] release Daily, Start date: 11/06/12 9:00:00, Duration: [...] unit, 0.04 mL, SUB-Q No Longer Ada [facility] Route: SUB-Q, Active 2012 Medical Drug form: SOLN, Center TID-Before Meals, Dosing Weight 100, kg, Start date: 11/06/12 7:30:00, Duration: 30 day, Stop date: 12/05/12 16:30:00 metoclopramide 10 mg, 2 mL, IVP No Longer Aristides [place] Route: IVP, Drug Active 2012 Medical form: INJ, Q6H, Center Dosing Weight 100, kg, PRN Nausea & Vomiting, Start date: 11/06/12 1:49:00, Duration: 30 day, Stop date: 12/06/12 1:48:00 Benadryl 25 mg, 0.5 mL, IV No Longer [place] [facility] Route: IV, Drug Active 2012 Medical form: INJ, Q4H, Center Dosing Weight 100, kg, PRN as needed for nausea/vomiting, Start date: 11/06/12 1:44:00, Duration: 30 day, Stop date: 12/06/12 1:43:00 Phenergan 12.5 mg, 0.5 mL, IVPB No Longer [place] [facility] Route: IVPB, Active 2012 Medical Drug form: INJ, Center Q6H, Dosing Weight 100, kg, PRN Nausea & Vomiting, Start date: 11/06/12 1:43:00, Stop date: 12/06/12 1:42:00 Benadryl 25 mg, 1 cap, PO No Longer [place] [facility] Route: PO, Drug Active 2012 Medical form: CAP, TID, Center Dosing Weight 100, kg, PRN Nausea, Start date: 11/06/12 0:31:00, Duration: 30 day, Stop date: 12/06/12 0:30:00 labetalol 20 mg, 4 mL, IVP No Longer Maggin [facility] Route: IVP, Drug Active 2012 Medical form: INJ, ONCE, Center Dosing Weight 100, kg, Start date: 11/06/12 0:25:00, Stop date: 11/06/12 0:25:00 simvastatin 40 mg, 1 tab, PO No Longer Maggin [facility] Route: PO, Drug Active 2012 Medical form: TAB, Center Bedtime, Dosing Weight 100, kg, Start date: 11/05/12 23:00:00, Duration: 30 day, Stop date: 12/05/12 21:00:00 lisinopril 20 mg, 1 tab, PO No Longer Maggin [facility] Route: PO, Drug Active 2012 Medical form: TAB, Q12H, Center Dosing Weight 100, kg, Start date: 11/05/12 23:00:00, Duration: 30 day, Stop date: 12/05/12 21:00:00 insulin detemir 20 unit, 0.2 mL, SUB-Q No Longer Olejarski [facility] Route: SUB-Q, Active 2012 Medical Drug form: INJ, Center Q12H, Dosing Weight 100, kg, Start date: 11/05/12 23:00:00, Stop date: 12/05/12 21:00:00 magnesium oxide 400 mg, 1 tab, PO Active [place] 400 mg oral PO, Daily, 2012 Medical tablet tab, Center Substitution Allowed, TAB metoprolol 100 100 mg, 1 tab, PO Active [facility] mg oral tablet, PO, Daily, 30 2012 Medical extended tab, Center release Substitution Allowed NIFEdipine 90 90 mg, 1 tab, PO Active [facility] mg oral tablet, PO, Daily, 30 2012 Medical extended tab, Center release Substitution Allowed, ERTAB prasugrel 10 mg 10 mg, 1 tab, PO Active [facility] oral tablet PO, Daily, 2012 Medical tab, Center Substitution Allowed, TAB Cymbalta 60 mg, Daily, Active [facility] Substitution 2012 Medical Allowed Center tramadol 50 mg 50 mg, 1 tab, PO No Longer Maggin [facility] oral tablet Route: PO, Drug Active 2012 Medical form: TAB, Q4H, Center Dosing Weight 100, kg, PRN For Pain, Start date: 11/05/12 22:39:00, Duration: 30 day, Stop date: 12/05/12 22:38:00 promethazine 25 mg, 1 tab, PO No Longer Gee [facility] Route: PO, Drug Active 2012 Medical [...] 5 ml, Route: IVP No Longer Maggin [place] 0.9% IVP, Drug Form: Active 2012 Medical INJ, Dosing Center Weight 104.545, kg, PRN, PRN Line Flush, Start date: 11/05/12 22:14:00, Duration: 30 day, Stop date: 12/05/12 23:13:00 Sodium Chloride 500 mL, Rate: IV No Longer Maggin [place] 0.9% (Bolus) IV 2,000 ml/hr, Active 2012 Medical 500 mL Infuse over: 15 Center minutes, Route: IV, kg, Total Volume: 500, Priority: STAT, Start date: 11/05/12 22:14:00, Duration: 1 doses or times, Stop date: 11/05/12 22:28:00 nitroglycerin 0.4 mg, 1 tab, SL No Longer Maggin [facility] SL Tab Route: SL, Drug Active 2012 Medical form: TAB, Center Q5Min, Dosing Weight 104.545, kg, PRN Chest Pain, Start date: 11/05/12 22:14:00, Duration: 3 doses or times, Stop date: Limited # of times Phenergan 12.5 mg, Route: IVPB No Longer Dilan [place] IVPB, ONCE, Active 2012 Medical Dosing Weight Center 104.545, kg, Priority: STAT, Start date: 11/05/12 22:05:00, Stop date: 11/05/12 22:05:00 Phenergan 12.5 mg, 0.5 mL, IVPB No Longer Dilan [facility] Route: IVPB, Active 2012 Medical Drug form: INJ, Center ONCE, Dosing Weight 104.545, kg, Priority: STAT, Start date: 11/05/12 21:08:00, Stop date: 11/05/12 21:08:00 carvedilol 12.5 mg, 1 tab, PO No Longer Dilan [facility] Route: PO, Drug Active 2012 Medical form: TAB, ONCE, Center Dosing Weight 104.545, kg, Start date: 11/05/12 19:20:00, Stop date: 11/05/12 19:20:00 Effient 10 mg, 1 tab, PO No Longer Dilan [facility] Route: PO, Drug Active 2012 Medical form: TAB, ONCE, Center Dosing Weight 104.545, kg, Start date: 11/05/12 19:16:00, Stop date: 11/05/12 19:16:00 ondansetron 4 mg, 2 mL, IVP No Longer Dilan [facility] Route: IVP, Drug Active 2012 Medical form: INJ, ONCE, Center Dosing Weight 104.545, kg, Priority: STAT, Start date: 11/05/12 19:14:00, Stop date: 11/05/12 19:14:00 aspirin 324 mg, 4 tab, PO No Longer Dilan [facility] Route: PO, Drug Active 2012 Medical form: CHEWTAB, Center ONCE, Dosing Weight 104.545, kg, Priority: STAT, Start date: 11/05/12 19:14:00, Stop date: 11/05/12 19:14:00 Saline Flush 5 mL, Route: IVP No Longer Dilan [facility] 0.9% IVP, Drug Form: Active 2012 [...] aspart 4 unit, 0.04 mL, SUB-Q Active [facility] 100 units/mL SUB-Q, 2012 Medical subcutaneous TID-Before Center solution Meals, 1 vial, 2, 2, Substitution Allowed, SOLN insulin detemir 16 unit, 0.16 SUB-Q Active [facility] 100 units/mL mL, SUB-Q, Q12H, 2012 Medical subcutaneous 1 vial, 2, 2, Center solution Substitution Allowed, INJ tramadol 50 mg 50 mg, 1 tab, PO Active Gee [place] oral tablet PO, Q4H, PRN, 30 2012 Medical tab, as needed Center for pain, Substitution Allowed, TAB simvastatin 40 40 mg, 1 tab, PO Active Gee 10/31/ [place] mg oral tablet PO, Bedtime, 30 2012 Medical tab, 1, 1, Center Substitution Allowed, Maintenance, TAB promethazine 25 25 mg, 1 tab, PO Active [place] mg oral tablet PO, Q6H, PRN, 60 2012 Medical tab, 1, 1, Center Nausea & Vomiting, Substitution Allowed, TAB prasugrel 10 mg 10 mg, 1 tab, PO Active [place] oral tablet PO, Daily, 30 2012 Medical tab, 1, 1, Center Substitution Allowed, TAB ondansetron 8 8 mg, 1 tab, PO, PO Active [place] 10/31/ [place] mg oral tablet, Q8H, PRN, 60 2012 Medical disintegrating tab, 1, 1, Center Nausea, Substitution Allowed, TABDIS NIFEdipine 90 90 mg, 1 tab, PO Active [place] 10/31/ [place] mg oral tablet, PO, Daily, 30 2012 Medical extended tab, 1, 1, Center release Substitution Allowed, ERTAB Toprol-XL 100 100 mg, 1 tab, PO Active [place] 10/31/ [place] mg oral tablet, PO, Daily, 30 2012 Medical extended tab, 1, 1, Center release Substitution Allowed, ERTAB magnesium oxide 400 mg, 1 tab, PO Active [place] 400 mg oral PO, Daily, 30 2012 Medical tablet tab, 1, 1, Center Substitution Allowed, TAB lisinopril 20 20 mg, 1 tab, PO Active [place] mg oral tablet PO, Q12H, 60 2012 Medical tab, 1, 1, Center Substitution Allowed, TAB aspirin 81 mg 81 mg, 1 tab, PO Active [place] [facility] tablet, enteric PO, Daily, 30 2012 Medical coated tab, 1, 1, Center Substitution Allowed, ECTAB insulin aspart 6 unit, 0.06 mL, SUB-Q No Longer Manlapaz [place] Route: SUB-Q, Active 2012 Medical Drug form: SOLN, [place] TID-Before Meals, Dosing Weight 78.2, kg, PRN Blood Glucose Results, Start date: 10/31/12 8:40:00, Duration: 30 day, Stop date: 11/30/12 8:39:00 Phenergan 25 mg, 1 tab, PO No Longer Steward [place] Route: PO, Drug Active 2012 Medical form: [...] 20 mEq, 15 mL, PO No Longer Bin Fei chloride Route: PO, Drug Active 2012 [...] 50 mg, 1 tab, PO No Longer [place] Fei oral tablet Route: PO, Drug Active 2012 Medical form: TAB, Q4H, Center Dosing Weight 78.2, kg, PRN as needed for pain, Start date: 10/29/12 9:45:00, Duration: 30 day, Stop date: 11/28/12 9:44:00 Toradol 15 15 mg, 0.5 mL, IV No Longer [place] [facility] mg/mL Route: IV, Drug Active 2012 Medical injectable form: INJ, ONCE, Center solution Dosing Weight 78.2, kg, Start date: 10/29/12 6:54:00, Stop date: 10/29/12 6:54:00 Toradol 15 15 mg, 0.5 mL, IV No Longer [place] [facility] mg/mL Route: IV, Drug Active 2012 [...] SUB-Q, Active 2012 Medical Drug form: SOLN, [place] TID-Before Meals, Start date: 10/28/12 7:30:00, Stop [...] labetalol 20 mg, Route: IVP No Longer Kempner Fei IVP, Drug form: Active 2012 Medical INJ, ONCE, Center Dosing Weight 78.2, kg, Start date: 10/27/12 19:28:00, Stop date: 10/27/12 19:28:00 labetalol 20 mg, 4 mL, IVP No Longer Kempner [facility] Route: IVP, Drug Active 2012 Medical form: INJ, ONCE, Center Dosing Weight 78.2, kg, Start date: 10/27/12 17:28:00, Stop date: 10/27/12 17:28:00 Benadryl 25 mg, 1 cap, PO No Longer Kempner [facility] Route: PO, Drug Active 2012 Medical form: CAP, ONCE, Center Dosing Weight 78.2, kg, Start date: 10/27/12 17:28:00, Stop date: 10/27/12 17:28:00 Reglan 10 mg 10 mg, Route: PO No Longer Kempner [facility] oral tablet PO, Drug form: Active 2012 Medical TAB, Before Center Meals & Bedtime, Dosing Weight 78.2, kg, Start date: 10/27/12 16:30:00, Duration: 30 day, Stop date: 11/26/12 11:30:00 Reglan 5 mg, 1 mL, IV No Longer [place] [facility] Route: IV, Drug Active 2012 Medical form: INJ, Q8H, Center Dosing Weight 78.2, kg, Start date: 10/27/12 16:00:00, Duration: 30 day, Stop date: 11/26/12 8:00:00 Reglan 5 mg, 1 mL, IV No Longer [place] [facility] Route: IV, Drug Active 2012 Medical form: INJ, Q8H, Center Dosing Weight 78.2, kg, PRN Nausea, Start date: 10/27/12 13:08:00, Duration: 30 day, Stop date: 11/26/12 13:07:00 lisinopril 20 mg, 1 tab, PO No Longer [place] Fei Route: PO, Drug Active 2012 Medical form: TAB, Q12H, Center Dosing Weight 78.2, kg, Start date: 10/27/12 10:00:00, Duration: 30 day, Stop date: 11/26/12 9:00:00 ergocalciferol 50,000 IntlUnit, PO No Longer Manlapaz [facility] 1 cap, Route: Active 2012 Medical PO, Drug form: Center CAP, Daily, Dosing Weight 78.2, kg, Start date: 10/27/12 9:00:00, Duration: 4 day, Stop date: 10/30/12 9:00:00 magnesium oxide 400 mg, 1 tab, PO No Longer Gee [facility] Route: PO, Drug Active 2012 Medical form: TAB, Center Daily, Dosing Weight 78.2, kg, Start date: 10/27/12 9:00:00, Duration: 30 day, Stop date: 11/25/12 9:00:00 Toprol-XL 100 100 mg, 1 tab, PO No Longer Vernon [facility] mg oral tablet, Route: PO, Drug Active 2012 Medical extended form: ERTAB, [place] release Daily, Start date: 10/27/12 9:00:00, Duration: 30 day, Stop date: 11/25/12 9:00:00 insulin aspart 7 unit, Route: SUB-Q No Longer Manlapaz [facility] SUB-Q, Drug Active 2012 Medical form: [facility], [place] TID-Before Meals, Dosing Weight 78.2, kg, Start date: 10/26/12 12:00:00, Duration: 30 day, Stop date: 11/25/12 11:30:00 Insulin regular 10 unit, 0.1 mL, SUB-Q No Longer Steward [facility] Route: SUB-Q, Active 2012 Medical Drug form: SOLN, [place] ONCE, Dosing Weight 78.2, kg, Start date: 10/26/12 10:32:00, Stop date: 10/26/12 10:32:00 NIFEdipine 90 mg, 1 tab, PO No Longer Dalton [facility] extended Route: PO, Drug Active 2012 Medical release form: ERTAB, [place] Daily, Dosing Weight 78.2, kg, Start date: 10/26/12 9:00:00, Duration: 30 day, Stop date: 11/24/12 9:00:00 metoprolol 25 mg, 1 tab, PO No Longer Vernon [facility] tartrate Route: PO, Drug Active 2012 Medical form: TAB, Q12H, Center Dosing Weight 78.2, kg, Start date: 10/26/12 9:00:00, Duration: 30 day, Stop date: 11/24/12 21:00:00 Reglan 10 mg, 1 tab, PO No Longer Vernon [facility] Route: PO, Drug Active 2012 Medical form: TAB, Center Before Meals & Bedtime, Dosing Weight 78.2, kg, Start date: 10/25/12 16:30:00, Duration: 30 day, Stop date: 11/24/12 11:30:00 potassium 20 mEq, 100 mL, IVPB No Longer Dalton [facility] chloride Route: IVPB, Active 2012 Medical Drug form: INJ, Center Q2H, Dosing Weight 78.2, kg, Total dose=40 mEq, Start date: 10/25/12 16:00:00, Duration: 2 doses or times, Stop date: 10/25/12 18:00:00 magnesium 2 gm, 50 mL, IVPB No Longer Dalton [facility] sulfate Route: IVPB, Active 2012 Medical Drug form: INJ, Center Q2H, Dosing Weight 78.2, kg, Total dose=4 gm, Start date: 10/25/12 16:00:00, Duration: 2 doses or times, Stop date: 10/25/12 18:00:00 potassium 40 mEq, 2 tab, PO No Longer Dalton [facility] chloride 20 mEq Route: PO, Drug Active 2012 Medical oral tablet, form: ERTAB, Center extended ONCE, Dosing release Weight 78.2, kg, Start date: 10/25/12 14:50:00, Stop date: 10/25/12 14:50:00 Procardia XL 30 mg, 1 tab, PO No Longer Dalton [facility] Route: PO, Drug Active 2012 Medical form: ERTAB, Center ONCE, Dosing Weight 78.2, kg, Start date: 10/25/12 14:49:00, Stop date: 10/25/12 14:49:00 1/2 NS 1,000 mL 1,000 mL, Rate: IV No Longer Gee [facility] 100 ml/hr, Active 2012 Medical Infuse over: 10 Center hr, Route: IV, kg, Total Volume: 1,000, Start date: 10/25/12 13:52:00, Duration: 30 day, Stop date: 11/24/12 13:51:00 atenolol 100 mg, 1 tab, PO No Longer [place] Route: PO, Drug Active 2012 Medical form: TAB, Center Daily, Dosing Weight 78.2, kg, Start date: 10/25/12 9:00:00, Duration: 30 day, Stop date: 11/23/12 9:00:00 Protonix 40 mg, Route: IVP No Longer Carpenter [facility] IVP, Drug form: Active 2012 Medical INJ, Daily, Center Dosing Weight 78.2, kg, Start date: 10/25/12 9:00:00, Duration: 30 day, Stop date: 11/23/12 9:00:00 NovoLog FlexPen 6 unit, 0.06 mL, SUB-Q No Longer Fitzpatrick [facility] Route: SUB-Q, Active 2012 Medical Drug form: SOLN, Center TID-Before Meals, Start date: 10/25/12 7:30:00, Duration: 30 day, Stop date: 11/23/12 16:30:00 insulin lispro 6 unit, Route: SUB-Q No Longer Dee Dee [facility] SUB-Q, Active 2012 Medical TID-Before Center Meals, Dosing Weight 78.2, kg, Start date: 10/25/12 7:30:00, Duration: 30 day, Stop date: 11/23/12 16:30:00 Lactated 1,000 mL, Rate: IV No Longer Dee Dee [facility] Ringers IV 250 ml/hr, Active 2012 Medical 1,000 mL Infuse over: 4 Center hr, Route: IV, kg, Total Volume: 1,000, Start date: 10/25/12 5:50:00, Duration: 30 day, Stop date: 11/24/12 5:49:00 Lactated 1,000 mL, Rate: IV No Longer Dee Dee [facility] Ringers (Bolus) 100 ml/hr, Active 2012 Medical IV 1,000 mL Infuse over: 10 Center hr, Route: IV, kg, Total Volume: 1,000, Start date: 10/25/12 5:50:00, Duration: 1 doses or times, Stop date: 10/25/12 15:49:00 insulin aspart 9 unit, 0.09 mL, SUB-Q No Longer Manlapaz [facility] Route: SUB-Q, Active 2012 Medical Drug form: SOLN, Center TID-Before Meals, Dosing Weight 78.2, kg, PRN Blood Glucose Results, Start date: 10/25/12 3:53:00, Duration: 30 day, Stop date: 11/24/12 3:52:00 glucagon 1 mg, Route: IM, IM [facility] Drug form: Active 2012 Medical PDR/INJ, PRN, Center Dosing Weight 78.2, kg, PRN Blood Glucose Results, Start date: 10/25/12 3:53:00, Duration: 30 day, Stop date: 11/24/12 4:52:00 Dextrose 50% 12.5 gm, 25 mL, IVP No Longer Funez [facility] 10/25[facility] Syringe Route: IVP, Drug Active 2012 Medical Form: INJ, Center Dosing Weight 78.2, kg, PRN, PRN Blood Glucose Results, Start date: 10/25/12 3:53:00, Duration: 30 day, Stop date: 11/24/12 4:52:00 Dextrose 50% 25 mL, Route: IVP No Longer Dee Dee [facility] 10/25[facility] Syringe IVP, Dosing Active 2012 Medical Weight 78.2, kg, Center PRN, PRN Blood Glucose Results, Start date: 10/25/12 3:52:00, Duration: 30 day, Stop date: 11/24/12 4:51:00 glucagon 1 mg, Route: IM, IM No Longer Funez [facility] 10/25[facility] PRN, Dosing Active 2012 Medical Weight 78.2, kg, Center PRN Blood Glucose Results, Start date: 10/25/12 3:52:00, Duration: 30 day, Stop date: 11/24/12 4:51:00 Neutra-Phos 2 pkt, Route: PO No Longer Neeru [facility] PO, Drug Form: Active 2012 Medical PDR/REC, Dosing Center Weight 78.2, kg, ONCE, Start date: 10/25/12 1:07:00, Stop date: 10/25/12 1:07:00 insulin detemir 25 unit, 0.25 SUB-Q No Longer Manlapaz [facility] mL, Route: Active 2012 Medical SUB-Q, Drug Center form: INJ, Q12H, Dosing Weight 78.2, kg, Priority: NOW, Start date: 10/25/12 1:06:00, Stop date: 11/23/12 21:00:00 heparin 5000 5,000 unit, 1 SUB-Q No Longer Neeru [place] units/mL mL, Route: Active 2012 Medical injectable SUB-Q, Drug Center solution form: INJ, Q8H, Dosing Weight 78.2, kg, Start date: 10/25/12 0:00:00, Duration: 30 day, Stop date: 11/23/12 16:00:00 Effient 10 mg, Route: PO No Longer Tanikella [facility] PO, Q12H, Dosing Active 2012 Medical Weight 78.2, kg, Center Start date: 10/24/12 21:00:00, Duration: 30 day, Stop date: 11/23/12 9:00:00 Saline Flush 10 mL, Route: IVP No Longer Martínez [place] 0.9% IVP, Drug Form: Active 2012 Medical INJ, Dosing Center Weight 78.2, kg, Q12H, Start date: 10/24/12 21:00:00, Duration: 30 day, Stop date: 11/23/12 9:00:00 Neutra-Phos 2 pkt, Route: PO No Longer Funez Kamel [facility] PO, Drug Form: Active 2012 Medical PDR/REC, Dosing Center Weight 78.2, kg, ONCE, Start date: 10/24/12 20:35:00, Stop date: 10/24/12 20:35:00 potassium 20 mEq, 100 mL, IVPB No Longer Funez Kamel [facility] chloride Route: IVPB, Active 2012 Medical [...] 1 tab, PO [facility] Route: PO, Drug Active 2012 Medical form: TAB, Center Daily, Dosing Weight 78.2, kg, Priority: STAT, Start date: 10/24/12 11:44:00, Duration: 30 day, Stop date: 11/23/12 9:00:00 Effient 10 mg, 1 tab, PO No Longer Reubenikella Fei Route: PO, Drug Active 2012 Medical form: TAB, Center Daily, Dosing Weight 78.2, kg, Start date: 10/24/12 11:00:00, Duration: 30 day, Stop date: 11/23/12 9:00:00 lisinopril 5 mg, 1 tab, PO No Longer Funez [facility] Fei Route: PO, Drug Active 2012 Medical form: TAB, Center Daily, Dosing Weight 78.2, kg, Priority: NOW, Start date: 10/24/12 10:53:00, Duration: 30 day, Stop date: 11/23/12 9:00:00 potassium 40 mEq, 2 tab, PO No Longer Funez [facility] Fei chloride Route: PO, Drug Active 2012 [...] 24 hr aspirin 200 mg, 1 supp, [place] No Longer Orozco Fei Route: [place], Drug Active 2012 Medical form: SUPP, Center ONCE, Dosing Weight 78.2, kg, Priority: NOW, Start date: 10/24/12 7:54:00, Stop date: 10/24/12 7:54:00 metoprolol 5 5 mg, 5 mL, IV No Longer Brian Fei mg/5 ml INJ Route: IV, Drug Active [...] Duration: 1 doses or times, Dose=2.2ml/kg, Max [id number] -- "To be infused by Radiology Staff ONLY"Dose=2.2ml/ kg, Max griq=[id number] -- "To be infused by Radiology Staff [...] Duration: 1 doses or times, Dose=2.2ml/kg, Max [id number] -- "To be infused by Radiology Staff ONLY"Dose=2.2ml/ kg, Max [id number]=[id number] -- "To be infused by Radiology Staff ONLY" Insulin 100 mL, Rate: IV No Longer Vernon Fei (regular) 0.1units/kg/hour Active 2012 Medical Titrate [...] 1,000 mL, Rate: IV No Longer Isaac [place] 0.9% IV 1,000 100 ml/hr, Active 2012 Medical mL + M.V.I.-12 Infuse over: Center 10 mL Daily + 10.1 hr, Route: folic acid IV 1 IV, kg, Total mg Daily + Volume: 1,011.2, thiamine IV 1 Start date: 10/23/12 8:41:00, Duration: 3 day, Stop date: 10/26/12 8:40:00 Insulin regular 100 mL, Rate: IVPB No Longer Isaac [place] 100 unit + Start Insulin Active 2012 [...] gm, 50 mL, IVP No Longer Isaac [place] Syringe Route: IVP, Drug Active 2012 Medical Form: INJ, Center Dosing Weight 113.636, kg, PRN, PRN Blood Glucose Results, Start date: 10/23/12 8:17:00, Duration: 30 day, Stop date: 11/22/12 9:16:00 normal saline 1,000 mL, Rate: IV No Longer Isaac [facility] 0.9% IV 1,000 150 ml/hr, Active [...] mg, 0.5 mL, IV No Longer [facility] Route: IV, Drug Active 2012 Medical form: INJ, Q4H, Center Dosing Weight 113.636, kg, PRN Other -See Comment, Start date: 10/23/12 0:38:00, Duration: 30 day, Stop date: 11/22/12 0:37:00, hypertesnion acetaminophen 650 mg, 1 supp, [place] No Longer Kristy Fei Route: [place], Drug Active 2012 Medical form: SUPP, Q6H, [...] mg, 5 mL, IVP No Longer Funez [facility] Fei mg/5 ml INJ Route: IVP, Drug [...] mg, Route: IM, IM No Longer Isaac [place] Drug form: Active 2012 Medical PDR/INJ, PRN, Center Dosing Weight 113.636, kg, PRN Blood Glucose Results, Start date: 10/23/12 0:26:00, Duration: 30 day, Stop date: 11/22/12 1:25:00 Dextrose 50% 25 gm, 50 mL, IVP No Longer Isaac [place] Syringe Route: IVP, Drug Active 2012 Medical Form: INJ, Center Dosing Weight 113.636, kg, PRN, PRN Blood Glucose Results, Start date: 10/23/12 0:26:00, Duration: 30 day, Stop date: 11/22/12 1:25:00 Zofran ODT 8 mg, 1 tab, PO No Longer Steward [place] Route: PO, Drug Active 2012 Medical form: TABDIS, Center Q8H, Dosing Weight 113.636, kg, PRN Nausea, Start date: 10/23/12 0:02:00, Stop date: 11/22/12 0:01:00 heparin 5,000 unit, SUB-Q No Longer Brian [place] Route: SUB-Q, Active 2012 Medical Q8H, Dosing Center Weight 113.636, kg, Start date: 10/23/12 0:00:00, Duration: 30 day, Stop date: 11/21/12 16:00:00 carvedilol 25 Daily, No Longer [place] mg oral tablet Substitution Active 2012 Medical Allowed [place] Diovan HCT 160 1 tab, PO, PO No Longer [place] mg-12.5 mg oral Daily, 30 tab, Active 2012 Medical tablet Substitution Center Allowed, Maintenance, TAB D5W 1/2NS + KCL 1,000 mL, Rate: IV No Longer Isaac [place] 20mEq/L 1000ml 150 ml/hr, Active 2012 Medical [...] mg, 10 mL, [place] No Longer Pauline [facility] Fei Route: [place], Drug Active 2012 Medical form: SUSP, Center Q12H, Dosing Weight 118.2, kg, Start date: 10/07/12 14:30:00, Duration: 7 day, Stop date: 10/14/12 9:00:00 Proctor 325 mg-10 15 mL, Route: PO No Longer Sushila Fei mg / 15 mL oral PO, Drug Form: Active 2012 Medical solution SOLN, Dosing Center Weight 118.2, kg, Q4H, PRN For Pain, Start date: 10/07/12 14:22:00, Duration: 30 day, Stop date: 11/06/12 14:21:00 Diovan 160 mg, 1 tab, PO No Longer Sushila [facility] Route: PO, Drug Active 2012 Medical form: TAB, Center Daily, Dosing Weight 118.2, kg, Start date: 10/07/12 14:00:00, Duration: 30 day, Stop date: 11/06/12 9:00:00 Coreg 25 mg, 1 tab, PO No Longer Sushila [facility] Route: PO, Drug Active 2012 Medical form: TAB, Q12H, Center Dosing Weight 118.2, kg, Start date: 10/07/12 14:00:00, Duration: 30 day, Stop date: 11/06/12 9:00:00 potassium 20 mEq, 100 mL, IVPB No Longer Bagshahi [facility] chloride Route: IVPB, Active 2012 Medical Drug form: INJ, Center ONCE, Dosing Weight 118.2, kg, Total dose=20 mEq, Start date: 10/07/12 7:53:00, Duration: 1 doses or times, Stop date: 10/07/12 7:53:00, For K=3.5 - 3.9 mEq/LFor K=3.5 - 3.9 mEq/L Blistex 1 appl, Route: TOP No Longer [facility] TOP, PRN, Drug Active 2012 Medical form: STIC PRN Center Other -See Comment, Start date: 10/06/12 22:48:00, Duration: 30 day, Stop date: 11/05/12 22:47:00 Blistex Lip Route: TOP, TOP No Longer Orlandocami [facility] [place] Dosing Weight Active 2012 Medical 118.2, kg, PRN, Center PRN, Start date: 10/06/12 22:46:00, Duration: 30 day, Stop date: 11/05/12 22:45:00, prn Dilaudid 0.2 mg, 0.1 mL, IV No Longer Sushila [facility] Route: IV, Drug Active 2012 Medical [...] mg, 1 tab, PO No Longer Sushila [facility] Route: PO, Drug Active 2012 Medical form: TAB, Q12H, Center Dosing Weight 118.2, kg, Start date: 10/04/12 21:00:00, Duration: 30 day, Stop date: 11/03/12 9:00:00 Proctor 325 mg-10 30 mL, Route: PO No Longer Allencami Fei mg / 15 mL oral PO, Drug Form: Active 2012 Medical solution SOLN, Dosing Center Weight 118.2, kg, Q4H, PRN Pain Score 6-10, Start date: 10/04/12 17:20:00, Duration: 30 day, Stop date: 11/03/12 17:19:00 Diovan 160 mg, 1 tab, PO No Longer Sushila [place] Route: PO, Drug Active 2012 Medical form: TAB, Center Daily, Dosing Weight 118.2, kg, Start date: 10/04/12 14:00:00, Duration: 30 day, Stop date: 11/03/12 9:00:00 Trandate 10 mg, 2 mL, IVP No Longer Low [facility] Route: IVP, Drug Active 2012 Medical form: INJ, Q4H, Center PRN Elevated BP, Start date: 10/04/12 9:05:00, Duration: 30 day, Stop date: 11/03/12 9:04:00 hydrALAZINE 20 mg, 1 mL, IVP No Longer Low [facility] Route: IVP, Drug Active 2012 Medical [...] Lactated 1,000 mL, Rate: IV No Longer Carpenter Fei Ringers 125 ml/hr, Active 2012 Medical Injection IV Infuse over: 8 Center 1,000 mL hr, Route: IV, kg, Total Volume: 1,000, Start date: 10/04/12 7:38:00, Stop date: 11/03/12 7:37:00 Levemir 20 unit, 0.2 mL, SUB-Q No Longer Low [facility] Route: SUB-Q, Active 2012 Medical Drug form: INJ, Center Q12H, Dosing Weight 118.2, kg, Priority: NOW, Start date: 10/04/12 7:02:00, Duration: 30 day, Stop date: 11/02/12 21:00:00 hydrALAZINE 10 mg, 0.5 mL, IVP No Longer Low [facility] Route: IVP, Drug Active 2012 Medical form: INJ, ONCE, Center Dosing Weight 118.2, kg, Start date: 10/04/12 6:53:00, Stop date: 10/04/12 6:53:00 labetalol 10 mg, 2 mL, IVP No Longer Low [facility] Route: IVP, Drug Active 2012 Medical form: INJ, Center Q15Min, Dosing Weight 118.2, kg, PRN Hypertension, Start date: 10/04/12 5:11:00, Duration: 3 doses or times, Stop date: Limited # of times Insulin regular 12 unit, 0.12 SUB-Q No Longer Orlandoson [facility] mL, Route: Active 2012 Medical SUB-Q, Drug Center form: SOLN, Sliding Scale, Dosing Weight 118.2, kg, PRN Blood Glucose Results, Start date: 10/04/12 0:40:00, Duration: 30 day, Stop date: 11/03/12 0:39:00 Dextrose 50% 25 gm, 50 mL, IVP No Longer Orlandoson [facility] Syringe Route: IVP, Drug Active 2012 Medical Form: INJ, Center Dosing Weight 118.2, kg, PRN, PRN Blood Glucose Results, Start date: 10/04/12 0:40:00, Duration: 30 day, Stop date: 11/03/12 0:39:00 glucagon 1 mg, Route: IM, IM No Longer Orlandoson [facility] Drug form: Active 2012 Medical PDR/INJ, PRN, Center Dosing Weight 118.2, kg, PRN Blood Glucose Results, Start date: 10/04/12 0:40:00, Duration: 30 day, Stop date: 11/03/12 0:39:00 Ofirmev 1,000 mg, 100 IV No Longer [facility] mL, Route: IV, Active 2012 Medical Drug form: INJ, Center Q6H, Start date: 10/03/12 18:00:00, Duration: 4 doses or times, Stop date: 10/04/12 12:00:00 Mefoxin 2 gm, Route: IVPB No Longer [facility] IVPB, Drug form: Active 2012 Medical INJ, ABXQ8H, Center Start date: 10/03/12 16:00:00, Duration: 2 doses or times, Stop date: 10/04/12 0:00:00 Lopressor 5 mg, 5 mL, IV No Longer Low [facility] Route: IV, Drug Active 2012 Medical form: INJ, Q6H, Center Start date: 10/03/12 16:00:00, Duration: 30 day, Stop date: 11/02/12 10:00:00 Humulin R 100 10 unit, 0.1 mL, SUB-Q No Longer [facility] units/mL Route: SUB-Q, Active 2012 Medical injectable Drug form: SOL, [place] solution TID-Before Meals, PRN Blood Glucose Results, Start date: 10/03/12 14:30:00, Duration: 30 day, Stop date: 11/02/12 14:29:00 Dextrose 50% in 50 mL, Route: IV No Longer [facility] Water IV IV, Start date: Active 2012 Medical 10/03/12 Center 14:29:00, Duration: 30 day, Stop date: 11/02/12 14:28:00, PRN Blood Glucose Results Dextrose 50% in 25 mL, Route: IVP No Longer [facility] Water IV IVP, Start date: Active 2013 Medical 10/03/12 Center 14:28:00, Duration: 30 day, Stop date: 11/02/12 14:27:00, PRN Blood Glucose Results Zofran 4 mg, 2 mL, IVP No Longer Low [facility] Route: IVP, Drug Active 2012 Medical form: INJ, Q8H, Center PRN Nausea, Start date: 10/03/12 14:22:00, Duration: 30 day, Stop date: 11/02/12 14:21:00 naloxone 0.2 mg, 0.5 mL, IV No Longer Bagshahi [facility] Route: IV, Drug Active 2012 Medical form: INJ, PRN, Center PRN Narcotic Reversal, Start date: 10/03/12 14:21:00, Duration: 30 day, Stop date: 11/02/12 14:20:00 hydromorphone IV, Start date: IV No Longer Low [facility] 15 mg 10/03/12 Active 2012 Medical 14:19:00, Center Duration: 30, 30 ml, 118.2 Phenergan 12.5 mg, 0.5 mL, IVPB No Longer Bagshi [facility] Route: IVPB, Active 2012 Medical Drug form: INJ, Center Q4H, PRN Nausea, Start date: 10/03/12 14:08:00, Duration: 30 day, Stop date: 11/02/12 14:07:00 Phenergan 12.5 mg, 0.5 mL, IM No Longer Bagshahi [facility] Route: IM, Drug Active 2012 Medical form: INJ, Q4H, Center PRN Nausea, Start date: 10/03/12 14:07:00, Duration: 30 day, Stop date: 11/02/12 14:06:00 Benadryl 25 mg, 0.5 mL, IM No Longer Sushila [facility] Route: IM, Drug Active 2012 Medical form: INJ, Center Bedtime, PRN Insomnia, Start date: 10/03/12 14:04:00, Duration: 30 day, Stop date: 11/02/12 14:03:00 Lactated 1,000 mL, Rate: IV No Longer Low [facility] Ringers 125 ml/hr, Active 2012 Medical Injection IV Infuse over: 8 Center 1,000 mL hr, Route: IV, kg, Total Volume: 1,000, Start date: 10/03/12 14:00:00, Duration: 30 day, Stop date: 11/02/12 13:59:00 ondansetron 4 mg, 2 mL, IVP No Longer Jose [facility] Route: IVP, Drug Active 2012 Medical form: INJ, ONCE, Center Dosing Weight 118.182, kg, PRN Nausea & Vomiting, Start date: 10/03/12 11:00:00 acetaminophen-o 1 tab, Route: PO No Longer Jose [facility] xycodone 325 PO, Drug Form: Active 2012 Medical mg-5 mg oral TAB, Dosing Center tablet Weight 118.182, kg, Q4H, PRN Pain Score 1-3, Start date: 10/03/12 11:00:00, Stop date: 10/04/12 0:00:00 hydromorphone 0.5 mg, 0.25 mL, IVP No Longer Jose [facility] Route: IVP, Drug Active 2012 Medical form: INJ, Center Q5Min, Dosing Weight 118.182, kg, PRN Pain Score 4-6, Start date: 10/03/12 11:00:00, Duration: 5 doses or times, Stop date: 10/04/12 0:00:00 Lactated 1,000 mL, Rate: IV No Longer Jose 10/03[facility] Fei Ringers 50 ml/hr, Infuse Active [...] 1 patch, Route: TOP No Longer Sushila 10/03[facility] Fei TOP, Drug form: Active 2012 Medical ERFILM, PRE OP, Center Start date: 10/03/12 6:00:00, Duration: 1 day, Stop date: 10/04/12 5:59:00 Mefoxin 2 gm, Route: IVPB No Longer Sushila [place] IVPB, Drug form: Active 2012 Medical INJ, PRE OP, Center Priority: STAT, Start date: 10/03/12 5:50:00, Duration: 1 day, Stop date: 10/04/12 5:49:00 Mobic 15 mg 10 mg, PO, PO Active [place] oral tablet Daily, 30 tab, 2012 Medical Substitution Center Allowed, TAB Zetia Daily, Active [facility] Substitution 2011 Medical Allowed Center Klor-Con 10 10 mEq, 1 tab, PO Active [facility] oral tablet, PO, Daily, 180 2011 Medical extended tab, Center release Substitution Allowed, ERTAB ferrous 324 mg, 1 tab, PO Active [facility] gluconate 324 PO, Daily, 100 2011 Medical mg oral tablet tab, Center Substitution Allowed, TAB Lasix 40 mg 40 mg, 1 tab, PO Active [place] oral tablet PO, Daily, 30 2011 Medical tab, Center Substitution Allowed, TAB Cymbalta 60 mg 60 mg, 1 cap, PO Active [facility] oral delayed PO, BID, 30 cap, 2011 Medical release capsule Substitution Center Allowed, ECCAP Crestor 20 mg 20 mg, 1 tab, PO Active [facility] oral tablet PO, Daily, 30 2011 Medical tab, Center Substitution Allowed, TAB Flexeril 10 mg 10 mg, 1 tab, PO Active [facility] oral tablet PO, TID, PRN, 30 2011 Medical tab, for spasm, Center Substitution Allowed, TAB Lyrica 150 mg 150 mg, 1 cap, PO Active [facility] oral capsule PO, BID, 90 cap, 2011 Medical Substitution Center Allowed, CAP Klonopin 0.5 mg 0.5 mg, 1 tab, PO Active [place] oral tablet PO, TID, 2011 Medical Substitution Center Allowed, TAB Diovan 160 mg 160 mg, 1 tab, PO Active 06/28[facility] [place] oral tablet PO, Daily, 30 2011 [...] oral tablet PO, BID, 30 tab, 2011 [facility] Substitution Center Allowed NovoLog Substitution Active [place] Allowed 2011 [facility] Levemir FlexPen Substitution Active [facility] Allowed 2011 [facility] Allergies, Adverse Reactions, Alerts No Known Medication Allergies Immunizations Immunization Date Given Site Status Last Updated Comments Source influenza virus 07/14/2013 completed [facility] vaccine, Medical inactivated Center pneumococcal 07/14/2013 completed [facility] 23-valent vaccine [facility] Results Order Name Results Value Reference Date Interpretation Comments Source Range CHEMISTRY U Preg Negative Negative 08/13 Normal [facility] (08/13/2013 13:30:00) [facility] URINALYSIS UA RBC 0-2 /HPF 0 - 2 08/13 [facility] URINALYSIS UA WBC 3-5 /HPF None Seen 08/13 [facility] URINALYSIS UA Sq Epi Few /LPF Few 08/13 [facility] URINALYSIS Micro? Performed 08/13 Normal [facility] (08/13/2013 13:30:00) [facility] URINALYSIS UA Hyal Cast 0-2 0 - 2 08/13 Normal [facility] (08/13/2013 13:30:00) [facility] Center URINALYSIS UA Glucose 250 mg/dL Negative 08/13 [facility] Center URINALYSIS UA Blood Negative Negative 08/13 Normal [facility] (08/13/2013 13:30:00) [facility] Center URINALYSIS UA Ketones >=80 mg/dL Negative 08/13 [facility] Center URINALYSIS UA 0.2 0.1 - 1.0 08/13 Normal [facility] Urobilinogen /2012 [facility] URINALYSIS UA Nitrite Negative Negative 08/13 Normal [facility] (08/13/2013 13:30:00) [facility] URINALYSIS UA Bili Small 1 Negative 08/13 ABN <sup>1</sup>R [facility] *ABN* [facility] (08/13/2013 13:30:00) Comment: Center Interpret positive bilirubin results with caution. Confirmatory testing
n ot possible due to the unavailabilit y of reagent. Correlation with
seru m chemistry results recommended. URINALYSIS UA Leuk Est Negative Negative 08/13 [facility] (08/13/2013 13:30:00) [facility] URINALYSIS UA Protein Negative Negative 08/13 [facility] (08/13/2013 13:30:00) [facility] URINALYSIS UA pH 6.0 5.0 - 8.0 08/13 Normal [facility] URINALYSIS UA Spec Grav 1.020 <=1.030 08/13 Normal [facility] URINALYSIS UA Color Yellow Yellow 08/13 [facility] *NA* [facility] (08/13/2013 13:30:00) [place] URINALYSIS UA Turbidity Clear Clear 08/13 [facility] (08/13/2013 13:30:00) [facility] CHEMISTRY BE Mark 1 -2-2 - 2 08/13 Normal [facility] CHEMISTRY pO2 Mark 29 20 - 49 08/13 Normal [facility] CHEMISTRY O2 Sat Mark 55.9 40.0 - 08/13 [facility] 70.0 [facility] CHEMISTRY Temp Mark 37.0 08/13 [facility] CHEMISTRY HCO3 Mark 26 22 - 26 08/13 Normal [facility] CHEMISTRY pCO2 Mark 41 38 - 52 08/13 Normal [facility] CHEMISTRY pH Mark 7.41 7.28 - 08/13 Normal [facility] 7.42 [facility] CHEMISTRY eGFR 60 08/13 <sup>2</sup>R [facility] Comment: The Center eGFR is [...] CO2 25 24 - 32 08/13 Normal [facility] CHEMISTRY Chloride Lvl 98 95 - 109 08/13 Normal [facility]2012 [facility] CHEMISTRY BUN 9 7 - 22 08/13 [facility] CHEMISTRY Calcium Lvl 9.1 8.5 - 10.5 08/13 Normal [facility] CHEMISTRY Glucose Lvl 301 70 - 99 08/13 [place] <sup>3</sup>I nterpretive Medical Data: Adult Center reference range values reflect the clinical guidelines
of the [place] [employer]. CHEMISTRY Potassium Lvl 3.8 3.5 - 5.1 08/13 Normal [facility] CHEMISTRY Sodium Lvl 134 135 - 145 08/13 LOW [facility]2012 [facility] CHEMISTRY Creatinine 1.1 0.5 - 1.4 08/13 Normal [facility] CHEMISTRY Bili Total 0.6 0.2 - 1.3 08/13 Normal [facility] CHEMISTRY ASPARTATE 17 0 - 37 08/13 Normal [facility] TRANSAMINASE [facility] CHEMISTRY ALANINE 22 0 - 65 08/13 Normal [facility] AMINO [facility] CHEMISTRY Albumin Lvl 3.5 3.5 - 5.0 08/13 Normal [facility]2012 [facility] CHEMISTRY Alk Phos 130 39 - 136 08/13 Normal [facility] CHEMISTRY Total Protein 7.8 6.4 - 8.4 08/13 Normal [facility] CHEMISTRY B/C Ratio 8 6 - 25 08/13 Normal [facility] CHEMISTRY AGAP 14.8 10.0 - 12 Normal [facility] [place] 20.0 /2012 [facility] CHEMISTRY Globulin 4.3 2.0 - 4.0 12 [place] [facility] CHEMISTRY A/G Ratio 0.8 0.7 - 1.6 12 Normal [facility] HEMATOLOGY Monocytes # 0.8 0.0 - 0.8 12 Normal [facility] HEMATOLOGY Eosinophils # 0.0 0.0 - 0.5 12 Normal [facility] HEMATOLOGY Basophils # 0.0 0.0 - 0.2 12 Normal [facility] HEMATOLOGY Basophils 0.1 0.0 - 1.0 12 Normal [facility] HEMATOLOGY Lymphocytes # 1.4 1.0 - 5.5 12 Normal [facility] HEMATOLOGY Segs-Bands # 10.5 1.5 - 8.1 08/13 [facility] HEMATOLOGY Monocytes 6.3 2.0 - 12.0 12 Normal [facility] HEMATOLOGY Eosinophils 0.2 0.0 - 4.0 08/13 Normal [facility] HEMATOLOGY Lymphocytes 11.3 20.0 - 12 LOW [place] 40.0 /2012 Medical [place] HEMATOLOGY Segs 82.1 45.0 - 12/08 [facility] [place] 75.0 /2012 Medical [place] HEMATOLOGY WBC X 10x3 12.7 3.7 - 10.4 12 [facility] HEMATOLOGY Hct 37.0 36.0 - 12/08 Normal [place] 48.0 /2012 [facility] HEMATOLOGY RBC X 10x6 4.36 4.20 - 12/08 Normal [place] 5.40 /2012 [facility] HEMATOLOGY Hgb 12.6 12.0 - 12/08 Normal [place] 16.0 /2012 [facility] HEMATOLOGY MCV 84.8 81.0 - 12/08 Normal [place] 99.0 /2012 Medical [place] HEMATOLOGY MCH 28.8 27.0 - 12/08 Normal [place] 31.0 /2012 [facility] HEMATOLOGY MCHC 34.0 32.0 - 12/08 Normal [place] 36.0 /2012 [facility] HEMATOLOGY Platelet 238 133 - 450 12 Normal [facility] HEMATOLOGY MPV 9.5 7.4 - 10.4 12 Normal [facility] HEMATOLOGY RDW 13.1 11.5 - 12/08 Normal [facility] [place] 14.5 /2013 Medical Center BEDSIDE Gluc POC Notify 07/26 [facility] GLUCOSE Comment 1 RN/MD /2012 Medical TESTING Center BEDSIDE Glucose POC 274 70 - 99 07/26 [place] <sup>1</sup>I [facility] GLUCOSE nterpretive Medical TESTING Data: Center Upper Reportable Limit: 200 mg/dL. BEDSIDE Glucose POC 146 70 - 99 07/15 [place] <sup>2</sup>I [facility] GLUCOSE nterpretive Medical TESTING Data: [place] Upper Reportable Limit: 200 mg/dL. BEDSIDE Gluc POC Notify 07/15 [facility] GLUCOSE Comment 1 RN/MD /2012 Medical TESTING Center BEDSIDE Glucose POC 140 70 - 99 07/14 [place] <sup>3</sup>I [facility] nterpretive Medical TESTING Data: [place] Upper Reportable Limit: 200 mg/dL. BEDSIDE Gluc POC Notify 07/14 [facility] GLUCOSE Comment 1 RN/MD /2012 Medical TESTING Center BEDSIDE Gluc POC Notify 07/14 [facility] GLUCOSE Comment 1 RN/MD /2012 Medical TESTING Center BEDSIDE Glucose POC 44 70 - 99 07/14 LOW <sup>4</sup>I [facility] nterpretive Medical TESTING Data: [place] Upper Reportable Limit: 200 mg/dL. IMMUNOLOGY [place]-HIV Negative Negative 07/14 [facility] / Ab *NA* Medical (07/14/2013 00:27:00) Center IMMUNOLOGY [place]-Hep C Negative Negative 07/14 [facility] Ab *NA* Medical (07/14/2013 00:27:00) Center [...] Lvl 135 135 - 145 07/13 Normal [facility] CHEMISTRY Chloride Lvl 95 95 - 109 07/13 Normal [facility] CHEMISTRY AGAP 16.5 10.0 - 07/13 Normal [facility] 20.0 [facility] CHEMISTRY Glucose Lvl 322 70 - 99 07/13 [place] <sup>8</sup>I nterpretive Medical Data: Adult Center reference range values reflect the clinical guidelines
of the [place] [employer]. CHEMISTRY Creatinine 0.6 0.5 - 1.4 07/13 Normal [facility] CHEMISTRY BUN 6 7 - 22 07/13 LOW [facility] CHEMISTRY Calcium Lvl 8.6 8.5 - 10.5 07/13 Normal [facility] CHEMISTRY CO2 27 24 - 32 07/13 Normal [facility] CHEMISTRY Potassium Lvl 3.5 3.5 - 5.1 07/13 Normal [facility] INFECTIOUS C difficile Negative 1 Negative 07/13 Normal <sup>1</sup>I [facility] DISEASES DNA (07/13/2013 00:00:59) nterpretive [facility] Clostridium difficile assay utilizes loop-mediated [...] Acid 1.9 0.5 - 2.2 07/12 Normal [facility] CHEMISTRY eGFR 88 07/12 <sup>6</sup>R esult Medical Comment: The [place] eGFR is calculated using the CKD-EPI formula. [...] CHEMISTRY Troponin-I <0.02 0.00 - 07/12 Normal [facility] 0.40 /2012 [facility] HEMATOLOGY Basophils # 0.0 0.0 - 0.2 07/12 Normal [facility] HEMATOLOGY Eosinophils # 0.3 0.0 - 0.5 07/12 Normal [facility] HEMATOLOGY Monocytes # 1.0 0.0 - 0.8 07/12 HI [facility] HEMATOLOGY Lymphocytes # 3.0 1.0 - 5.5 07/12 Normal [facility] HEMATOLOGY Segs-Bands # 6.4 1.5 - 8.1 07/12 Normal [facility] HEMATOLOGY Basophils 0.4 0.0 - 1.0 07/12 Normal [facility] HEMATOLOGY Eosinophils 2.8 0.0 - 4.0 07/12 Normal [facility] HEMATOLOGY Plt Morph Normal 07/12 Normal [facility] (07/12/2013 16:29:10) [facility] HEMATOLOGY RBC Morph Normal 07/12 Normal [facility] (07/12/2013 16:29:10) [facility] HEMATOLOGY Monocytes 9.4 2.0 - 12.0 07/12 Normal [facility] HEMATOLOGY Lymphocytes 27.9 20.0 - 07/12 Normal [place] 40.0 [facility] HEMATOLOGY Segs 59.5 45.0 - 07/12 Normal [place] 75.0 [facility] HEMATOLOGY MCV 85.3 81.0 - 07/12 Normal [place] 99.0 [facility] HEMATOLOGY Hct 41.2 36.0 - 07/12 Normal [facility] 48.0 /2012 [facility] HEMATOLOGY Hgb 13.6 12.0 - 11 Normal [facility] 16.0 /2012 [facility] HEMATOLOGY RBC X 10x6 4.84 4.20 - 11 Normal [facility] 5.40 /2012 [facility] HEMATOLOGY MPV 9.4 7.4 - 10.4 11 Normal [facility] [place] HEMATOLOGY Platelet 225 133 - 450 11 Normal [facility] HEMATOLOGY MCH 28.1 27.0 - 11 Normal [facility] 31.0 /2012 [facility] HEMATOLOGY MCHC 33.0 32.0 - 11 Normal [facility] 36.0 /2012 [facility] HEMATOLOGY RDW 12.7 11.5 - 11 Normal [facility] 14.5 /2012 [facility] HEMATOLOGY WBC X 10x3 10.7 3.7 - 10.4 07/12 HI [facility] [place] CHEMISTRY AGAP 12.4 10.0 - 07/12 Normal [facility] 20.0 [facility] Center CHEMISTRY Calcium Lvl 8.8 8.5 - 10.5 07/12 Normal [facility] CHEMISTRY Chloride Lvl 102 95 - 109 07/12 Normal [facility] CHEMISTRY Potassium Lvl 3.4 3.5 - 5.1 07/12 LOW [facility] Center CHEMISTRY CO2 30 24 - 32 07/12 Normal [facility] CHEMISTRY Sodium Lvl 141 135 - 145 07/12 Normal [facility] Center CHEMISTRY Creatinine 0.8 0.5 - 1.4 07/12 Normal [facility] Lvl Medical Center CHEMISTRY BUN 6 7 - 22 07/12 LOW [facility] CHEMISTRY Glucose Lvl 163 70 - 99 07/12 HI <sup>9</sup>I nterpretive Medical Data: Adult Center reference range values reflect the clinical guidelines
of the [place] [employer]. IMMUNOLOGY CDC-HIV 1/2 Negative Negative 07/12 [facility] Ab *NA* /2012 Medical (07/12/2013 16:02:06) Center CHEMISTRY Calcium Lvl 8.4 8.5 - 10.5 07/12 LOW [facility] CHEMISTRY AGAP 10.4 10.0 - 07/12 Normal [facility] 20.0 [facility] Center CHEMISTRY eGFR 76 11/06 <sup>7</sup>R esult Medical Comment: The Center eGFR [...] Lvl 140 135 - 145 07/12 Normal [facility] CHEMISTRY Chloride Lvl 103 95 - 109 07/12 Normal [facility] CHEMISTRY Potassium Lvl 3.4 3.5 - 5.1 07/12 LOW [facility]2012 [facility] CHEMISTRY BUN 9 7 - 22 07/12 Normal [facility]2012 [facility] CHEMISTRY Creatinine 0.9 0.5 - 1.4 07/12 Normal [facility] CHEMISTRY Glucose Lvl 296 70 - 99 07/12 HI <sup>10</sup> Interpretive Medical Data: Adult Center reference range values reflect the clinical guidelines
of the [place] [employer]. CHEMISTRY CO2 30 24 - 32 07/12 Normal [facility] CHEMISTRY Troponin-I <0.02 0.00 - 11 Normal [facility] 0.40 /2012 [facility] CHEMISTRY Lipase Lvl 76 73 - 393 07/12 Normal [facility]2012 [facility] CHEMISTRY B/C Ratio 11 6 - 25 07/12 Normal [facility]2012 [facility] CHEMISTRY ASPARTATE 25 0 - 37 07/12 Normal [facility] CHEMISTRY Bili Total 0.4 0.2 - 1.3 07/12 Normal [facility]2012 [facility] CHEMISTRY Alk Phos 119 39 - 136 07/12 Normal [facility] CHEMISTRY Albumin Lvl 3.9 3.5 - 5.0 07/12 Normal [facility] CHEMISTRY ALANINE 29 0 - 65 07/12 Normal [facility] AMINOTRANSFER [facility] CHEMISTRY Total Protein 8.1 6.4 - 8.4 07/12 Normal [facility] CHEMISTRY Globulin 4.2 2.0 - 4.0 07/12 HI [facility] CHEMISTRY A/G Ratio 0.9 0.7 - 1.6 07/12 Normal [facility] HEMATOLOGY Monocytes # 0.6 0.0 - 0.8 07/12 Normal [facility] HEMATOLOGY Segs-Bands # 9.5 1.5 - 8.1 07/12 HI [facility] HEMATOLOGY Eosinophils # 0.2 0.0 - 0.5 07/12 Normal [facility] HEMATOLOGY Lymphocytes # 2.1 1.0 - 5.5 07/12 Normal [facility] HEMATOLOGY Basophils 0.2 0.0 - 1.0 07/12 Normal [facility] HEMATOLOGY Neut Vac Slight None Seen 07/12 ABN [place] *ABN* /2012 [facility] (07/12/2013 03:30:00) [place] HEMATOLOGY Hypochrom Slight None Seen 07/12 Normal [facility] (07/12/2013 03:30:00) [facility] HEMATOLOGY Basophils # 0.0 0.0 - 0.2 07/12 Normal [facility] HEMATOLOGY RBC Morph Normal 07/12 Normal [facility] (07/12/2013 03:30:00) [facility] HEMATOLOGY Eosinophils 1.6 0.0 - 4.0 07/12 Normal [facility] HEMATOLOGY Monocytes 4.6 2.0 - 12.0 07/12 Normal [facility] HEMATOLOGY Segs 76.6 45.0 - 07/12 HI [place] 75.0 [facility] HEMATOLOGY Lymphocytes 17.0 20.0 - 07/12 LOW [place] 40.0 [facility] HEMATOLOGY Plt Morph Normal 07/12 Normal [facility] (07/12/2013 03:30:00) [facility] HEMATOLOGY MCHC 32.4 32.0 - 07/12 Normal [place] 36.0 [facility] HEMATOLOGY MCH 27.4 27.0 - 07/12 Normal [place] 31.0 [facility] HEMATOLOGY RDW 12.7 11.5 - 07/12 Normal [facility] 14.5 /2012 [facility] HEMATOLOGY Platelet 235 133 - 450 07/12 Normal [place] [facility] HEMATOLOGY MPV 9.4 7.4 - 10.4 07/12 Normal [facility] HEMATOLOGY Hgb 12.9 12.0 - 07/12 Normal [facility] 16.0 /2012 [facility] HEMATOLOGY MCV 84.3 81.0 - 07/12 Normal [facility] 99.0 [facility] HEMATOLOGY Hct 39.6 36.0 - 07/12 Normal [facility] 48.0 /2012 [facility] HEMATOLOGY WBC X 10x3 12.4 3.7 - 10.4 07/12 HI [facility] HEMATOLOGY RBC X 10x6 4.70 4.20 - 07/12 Normal [facility] 5.40 /2012 [facility] CHEMISTRY U Preg Negative Negative 07/12 Normal [facility] (07/12/2013 03:00:00) [facility] URINALYSIS UA Leuk Est Negative Negative 07/12 Normal [facility] (07/12/2013 03:00:00) [facility] Center URINALYSIS UA 0.2 0.1 - 1.0 07/12 Normal [facility] Urobilinogen [facility] Center URINALYSIS UA Nitrite Negative Negative 07/12 Normal [facility] (07/12/2013 03:00:00) Medical Center URINALYSIS UA Bili Negative Negative 07/12 [facility] *NA* [facility] (07/12/2013 03:00:00) Center URINALYSIS UA pH 6.0 5.0 - 8.0 07/12 Normal [facility] URINALYSIS UA Protein Negative Negative 07/12 Normal [facility] mg/dL Medical Center URINALYSIS UA Glucose >=1000 Negative 07/12 ABN [facility] mg/dL [facility] Center URINALYSIS UA Ketones 15 mg/dL Negative 07/12 ABN [facility] URINALYSIS UA Spec Grav 1.020 <=1.030 07/12 Normal [facility] URINALYSIS UA Blood Negative Negative 07/12 Normal [facility] (07/12/2013 03:00:00) Medical Center URINALYSIS UA Color Yellow Yellow 07/12 [facility] *NA* Medical (07/12/2013 03:00:00) Center URINALYSIS UA Turbidity Clear Clear 07/12 Normal [facility] (07/12/2013 03:00:00) Medical Center URINALYSIS UA RBC 0-2 /HPF 0 - 2 07/12 Normal [facility] URINALYSIS UA WBC 3-5 /HPF None Seen 07/12 Normal [facility] [place] URINALYSIS UA Sq Epi Many /LPF Few 07/12 ABN [facility] URINALYSIS UA Bacteria Few /HPF None Seen 07/12 Normal [facility] URINALYSIS UA [place] Yeast Moderate None Seen 07/12 ABN / Medical Center URINALYSIS Micro? Performed 07/12 Normal [facility] (07/12/2013 03:00:00) Medical Center BEDSIDE Gluc POC 226 70 - 99 04/03 HI <sup>1</sup>I [facility] GLUCOSE Lifscn nterpretive Medical TESTING Data: [place] Reportable Limit: 200 mg/dL. BEDSIDE Comment2 Sliding 04/03 NA [facility] GLUCOSE Scale Medical TESTING Center BEDSIDE Comment1 Notify 04/03 NA [facility] GLUCOSE RN/MD Medical TESTING Center BEDSIDE Comment1 Notify 04/03 NA [facility] GLUCOSE RN/MD Medical TESTING Center BEDSIDE Gluc POC 198 70 - 99 04/03 HI <sup>2</sup>I [facility] GLUCOSE Lifscn nterpretive Medical TESTING Data: [place] Reportable Limit: 200 mg/dL. BEDSIDE Comment2 Sliding 04/03 NA [facility] GLUCOSE Scale Medical TESTING Center BEDSIDE Comment2 Sliding 04/03 NA [facility] GLUCOSE Scale Medical TESTING Center BEDSIDE Comment1 Notify 04/03 NA [facility] GLUCOSE RN/ /2012 Medical TESTING Center BEDSIDE Gluc POC 182 70 - 99 04/03 HI <sup>3</sup>I [facility] GLUCOSE Lifscn nterpretive Medical TESTING Data: [place] Reportable Limit: 200 mg/dL. CHEMISTRY Troponin-T <0.010 0.000 - 04/03 Normal [facility] 0.100 [facility] Center CHEMISTRY Troponin-I <0.02 0.00 - 04/03 Normal [facility] 0.40 [facility] Center CHEMISTRY Total CK 41 12 - 191 04/03 Normal Medical [facility] CHEMISTRY Creatinine 0.6 0.5 - 1.4 04/03 Normal [facility] Lvl Medical Center CHEMISTRY Sodium Lvl 137 135 - 145 04/03 Normal [facility] CHEMISTRY CO2 25 24 - 32 04/03 Normal [facility] CHEMISTRY Calcium Lvl 8.2 8.5 - 10.5 04/03 LOW [facility] CHEMISTRY AGAP 17.9 10.0 - 04/03 Normal [facility] 20.0 [facility] CHEMISTRY Potassium Lvl 3.9 3.5 - 5.1 04/03 Normal [facility] CHEMISTRY Chloride Lvl 98 95 - 109 04/03 Normal [facility] CHEMISTRY Glucose Lvl 266 70 - 99 04/03 HI <sup>6</sup>I nterpretive Medical Data: Adult Center reference range values reflect the clinical guidelines
of the [place] [employer]. CHEMISTRY BUN 3 7 - 22 04/03 LOW [facility] CHEMISTRY eGFR 109 04/03 NA <sup>4</sup>R [...] 10.5 12.0 - 04/03 LOW [place] 16.0 [facility] HEMATOLOGY RBC 4.22 4.20 - 04/03 Normal [facility] 5.40 [facility] HEMATOLOGY WBC 10.3 3.7 - 10.4 04/03 Normal [facility] HEMATOLOGY Hct 33.5 36.0 - 04/03 LOW [place] 48.0 [facility] HEMATOLOGY MPV 8.8 7.4 - 10.4 04/03 Normal [facility] HEMATOLOGY Platelet 276 133 - 450 04/03 Normal [facility] HEMATOLOGY RDW 18.7 11.5 - 04/03 HI [place] 14.5 /2012 [facility] [place] HEMATOLOGY MCHC 31.2 32.0 - 04/03 LOW [place] 36.0 /2012 [facility] [place] HEMATOLOGY MCH 24.8 27.0 - 04/03 LOW [place] 31.0 [facility] [place] HEMATOLOGY MCV 79.5 81.0 - 04/03 LOW [place] 99.0 /2012 [facility] HEMATOLOGY Segs 58.6 45.0 - 04/03 Normal [place] 75.0 /2012 [facility] HEMATOLOGY Lymphocytes 29.9 20.0 - 04/03 Normal [place] 40.0 [facility] HEMATOLOGY Basophils 1.3 0.0 - 1.0 04/03 HI [facility] HEMATOLOGY Lymphocytes # 3.1 1.0 - 5.5 04/03 Normal [facility] HEMATOLOGY Segs-Bands # 6.0 1.5 - 8.1 04/03 Normal [facility] HEMATOLOGY Eosinophils 2.8 0.0 - 4.0 04/03 Normal [facility] HEMATOLOGY Eosinophils # 0.3 0.0 - 0.5 04/03 Normal [facility] HEMATOLOGY Monocytes # 0.8 0.0 - 0.8 04/03 Normal [facility] HEMATOLOGY Basophils # 0.1 0.0 - 0.2 04/03 Normal [facility] HEMATOLOGY Monocytes 7.4 2.0 - 12.0 04/03 Normal [facility] CHEMISTRY Troponin-I <0.02 0.00 - 04/03 Normal [place] 0.40 [facility] CHEMISTRY Total CK 51 12 - 191 04/03 Normal [facility] CHEMISTRY Troponin-T <0.010 0.000 - 04/03 Normal [place] 0.100 [facility] CHEMISTRY Bili Direct 0.1 0.0 - 0.3 04/03 Normal [facility] CHEMISTRY Bili Total 0.4 0.2 - 1.3 04/03 Normal [facility] CHEMISTRY Bili Indirect 0.3 0.0 - 1.0 04/03 Normal [facility] CHEMISTRY ALT 22 0 - 65 04/03 Normal [facility] CHEMISTRY AST 31 0 - 37 04/03 Normal [facility] CHEMISTRY Lipase Lvl 54 73 - 393 04/03 LOW [facility] CHEMISTRY Troponin-I <0.02 0.00 - 04/02 [facility] 0.40 [facility] CHEMISTRY Total CK 24 12 - 191 04/02 Normal [facility] CHEMISTRY AGAP 17.5 10.0 - 04/02 Normal [facility] 20.0 [facility] CHEMISTRY eGFR 88 04/02 NA <sup>5</sup>R [...] Creatinine 0.8 0.5 - 1.4 04/02 Normal [facility] Lvl /2012 [facility] CHEMISTRY Potassium Lvl 3.5 3.5 - 5.1 04/02 Normal [facility] CHEMISTRY Chloride Lvl 97 95 - 109 04/02 Normal [facility] CHEMISTRY Glucose Lvl 163 70 - 99 04/02 HI <sup>7</sup>I nterpretive Medical Data: Adult Center reference range values reflect the clinical guidelines
of the [place] [employer]. CHEMISTRY BUN 2 7 - 22 04/02 LOW [facility] CHEMISTRY Sodium Lvl 136 135 - 145 04/02 Normal [facility] CHEMISTRY Calcium Lvl 8.6 8.5 - 10.5 04/02 Normal [facility] CHEMISTRY CO2 25 24 - 32 04/02 [facility] HEMATOLOGY Platelet 378 133 - 450 04/02 Normal [facility] HEMATOLOGY MCHC 33.4 32.0 - 07 Normal [place] 36.0 /2012 [facility] HEMATOLOGY RDW 17.3 11.5 - 04/02 HI [place] 14.5 [facility] HEMATOLOGY MCV 76.0 81.0 - 04/02 [facility] [place] 99.0 /2012 [facility] HEMATOLOGY MCH 25.4 27.0 - 04/02 LOW [place] 31.0 /2012 [facility] HEMATOLOGY Hct 34.2 36.0 - 04/02 LOW [place] 48.0 /2012 [facility] HEMATOLOGY RBC 4.50 4.20 - 04/02 Normal [place] 5.40 /2012 [facility] HEMATOLOGY Hgb 11.4 12.0 - 04/02 [facility] [place] 16.0 /2012 [facility] HEMATOLOGY WBC 9.0 3.7 - 10.4 04/02 Normal [facility] HEMATOLOGY MPV 8.4 7.4 - 10.4 04/02 Normal [facility] HEMATOLOGY Microcyte 2+ None Seen 04/02 ABN [place] *ABN* /2012 Medical (04/02/2013 17:09:00) [place] HEMATOLOGY Basophils # 0.1 0.0 - 0.2 04/02 Normal [facility] HEMATOLOGY Eosinophils # 0.1 0.0 - 0.5 04/02 Normal [facility] HEMATOLOGY Monocytes # 0.7 0.0 - 0.8 04/02 Normal [facility] HEMATOLOGY Lymphocytes # 1.4 1.0 - 5.5 04/02 Normal [facility] HEMATOLOGY Segs-Bands # 6.7 1.5 - 8.1 04/02 Normal [facility] HEMATOLOGY Basophils 1.3 0.0 - 1.0 04/02 HI [facility] HEMATOLOGY Lymphocytes 15.2 20.0 - 04/02 LOW [place] 40.0 [facility] HEMATOLOGY Segs 74.3 45.0 - 04/02 Normal [place] 75.0 [facility] HEMATOLOGY Eosinophils 1.6 0.0 - 4.0 04/02 Normal [facility] HEMATOLOGY Monocytes 7.6 2.0 - 12.0 04/02 Normal [facility] Center BEDSIDE Gluc POC 229 70 - 99 03/09 [place] <sup>1</sup>I [facility] GLUCOSE Lifscn /2012 nterpretive Medical TESTING Data: Center Upper Reportable Limit: 200 mg/dL. BEDSIDE Comment1 Notify 03/09 NA [facility] GLUCOSE RN/ Medical TESTING Center CHEMISTRY [...] BUN 7 7 - 22 03/09 Normal [facility] CHEMISTRY Creatinine 0.8 0.5 - 1.4 03/09 [facility] CHEMISTRY Sodium Lvl 138 135 - 145 03/09 [facility] CHEMISTRY Potassium Lvl 4.7 3.5 - 5.1 03/09 [facility] CHEMISTRY Chloride Lvl 104 95 - 109 / Normal [facility] CHEMISTRY CO2 23 24 - 32 03/09 [facility] CHEMISTRY Bili Total 0.2 0.2 - 1.3 03/09 [facility] CHEMISTRY AST 22 0 - 37 / [facility] CHEMISTRY Total Protein 4.8 6.4 - 8.4 03/09 [facility] CHEMISTRY Calcium Lvl 7.4 8.5 - 10.5 03/09 [facility] CHEMISTRY Albumin Lvl 1.9 3.5 - 5.0 03/09 [facility] CHEMISTRY Glucose Lvl 192 70 - 99 07 HI <sup>7</sup>I nterpretive Medical Data: Adult Center reference range values reflect the clinical guidelines
of the [place] [employer]. CHEMISTRY Alk Phos 162 39 - 136 07/ HI [facility] CHEMISTRY ALT 18 0 - 65 07 Normal [facility] CHEMISTRY A/G Ratio 0.7 0.7 - 1.6 03/09 Normal [facility] CHEMISTRY Globulin 2.9 2.0 - 4.0 07 Normal [facility] CHEMISTRY AGAP 15.7 10.0 - 0704 Normal [place] 20.0 [facility] CHEMISTRY B/C Ratio 9 6 - 25 07 Normal [facility] HEMATOLOGY Eosinophils 1.9 0.0 - 4.0 07/ Normal [facility] HEMATOLOGY Basophils 1.0 0.0 - 1.0 03/09 Normal [facility] HEMATOLOGY Anisocyte 1+ None Seen 03/09 [facility] [place] *ABN* /2012 [facility] (03/09/2013 01:09:00) [place] HEMATOLOGY Lymphocytes # 2.0 1.0 - 5.5 07/ Normal [facility] HEMATOLOGY Monocytes # 0.6 0.0 - 0.8 07/ Normal [facility] HEMATOLOGY Eosinophils # 0.1 0.0 - 0.5 07/ Normal [facility] HEMATOLOGY Basophils # 0.1 0.0 - 0.2 07 Normal [facility] HEMATOLOGY Segs-Bands # 4.6 1.5 - 8.1 07 Normal [facility] HEMATOLOGY Segs 62.8 45.0 - 07/04 Normal [place] 75.0 /2012 [facility] HEMATOLOGY Lymphocytes 26.4 20.0 - 07/04 Normal [place] 40.0 /2012 [facility] HEMATOLOGY Monocytes 7.9 2.0 - 12.0 07/ Normal [facility] HEMATOLOGY RDW 20.7 11.5 - 07/04 HI [place] 14.5 [facility] HEMATOLOGY Platelet 304 133 - 450 07/ Normal [facility] HEMATOLOGY MPV 8.0 7.4 - 10.4 07 Normal [facility] HEMATOLOGY Hct 24.9 36.0 - 07/ [facility] [place] 48.0 /2013 [facility] HEMATOLOGY MCV 79.3 81.0 - 07/ [facility] [place] 99.0 /2012 [facility] HEMATOLOGY MCH 24.7 27.0 - 07/ [facility] [place] 31.0 /2012 [facility] HEMATOLOGY MCHC 31.2 32.0 - 07/ [facility] [place] 36.0 /2012 [facility] HEMATOLOGY RBC 3.14 4.20 - 07/ [facility] [place] 5.40 /2012 [facility] HEMATOLOGY Hgb 7.8 12.0 - 07/ [facility] [place] 16.0 /2012 [facility] HEMATOLOGY WBC 7.4 3.7 - 10.4 07/ Normal [facility] BEDSIDE Gluc POC 131 70 - 99 03/09 [place] <sup>2</sup>I [facility] GLUCOSE nterpretive Medical TESTING Data: [place] Upper Reportable Limit: 200 mg/dL. BEDSIDE Comment1 Notify 03/09 NA [facility] GLUCOSE RN/MD /2012 [facility] TESTING Center BEDSIDE Comment1 Notify 03/09 NA [facility] GLUCOSE RN/MD /2012 [facility] TESTING [place] BEDSIDE Gluc POC 155 70 - 99 03/09 [place] <sup>3</sup>I [facility] GLUCOSE [facility] nterpretive Medical TESTING Data: [place] Upper Reportable Limit: 200 mg/dL. CHEMISTRY Magnesium Lvl 1.5 1.8 - 2.4 03/08 [facility] CHEMISTRY A/G Ratio 0.7 0.7 - 1.6 03/08 Normal [facility] CHEMISTRY B/C Ratio 8 6 - 25 03/08 Normal [facility] CHEMISTRY Globulin 2.8 2.0 - 4.0 03/08 Normal [facility] CHEMISTRY AGAP 15.8 10.0 - 07/03 Normal [place] 20.0 [facility] CHEMISTRY Potassium Lvl 3.8 3.5 - 5.1 07 Normal [facility] CHEMISTRY Chloride Lvl 100 95 - 109 07/ Normal [facility] CHEMISTRY CO2 23 24 - 32 07/ [facility] CHEMISTRY Total Protein 4.8 6.4 - 8.4 07 [facility] CHEMISTRY AST 10 0 - 37 07 Normal [facility] CHEMISTRY Calcium Lvl 7.6 8.5 - 10.5 03/08 [facility] CHEMISTRY Bili Total 0.3 0.2 - 1.3 03/08 Normal [facility] CHEMISTRY eGFR 88 03/08 NA <sup>5</sup>R [...] 99 03/08 [place] <sup>8</sup>I nterpretive Medical Data: [facility] Center reference range values reflect the clinical guidelines
of the [place] [employer]. CHEMISTRY BUN 6 7 - 22 03/08 [facility] CHEMISTRY Creatinine 0.8 0.5 - 1.4 03/08 [facility] /2012 [facility] CHEMISTRY Sodium Lvl 135 135 - 145 03/08 [facility] CHEMISTRY Alk Phos 173 39 - 136 03/08 [facility] CHEMISTRY ALT 16 0 - 65 / [facility]2012 [facility] CHEMISTRY Albumin Lvl 2.0 3.5 - 5.0 03/08 [facility]2012 [facility] CHEMISTRY Lipase Lvl 54 73 - 393 03/08 [facility]2012 [facility] CHEMISTRY Amylase Lvl 30 25 - 115 / [facility]2012 [facility] HEMATOLOGY Basophils # 0.1 0.0 - 0.2 03/08 [facility] HEMATOLOGY Anisocyte 1+ None Seen 03/08 ABN [facility] [place] *ABN* /2012 Medical (03/08/2013 03:01:00) Center HEMATOLOGY Microcyte 1+ None Seen 03/08 [facility] [place] *ABN* /2012 Medical (03/08/2013 03:01:00) Center HEMATOLOGY Eosinophils # 0.2 0.0 - 0.5 07 Normal [facility] HEMATOLOGY Monocytes # 0.8 0.0 - 0.8 03/08 Normal [facility] HEMATOLOGY Lymphocytes 34.2 20.0 - 07 Normal [place] 40.0 /2012 [facility] HEMATOLOGY Segs 53.3 45.0 - 07 Normal [place] 75.0 /2012 [facility] HEMATOLOGY Lymphocytes # 3.0 1.0 - 5.5 07 Normal [facility] HEMATOLOGY Segs-Bands # 4.7 1.5 - 8.1 07 Normal [facility] HEMATOLOGY Basophils 0.9 0.0 - 1.0 / Normal [facility] HEMATOLOGY Eosinophils 2.6 0.0 - 4.0 07/ Normal [facility] HEMATOLOGY Monocytes 9.0 2.0 - 12.0 07/ Normal [facility] HEMATOLOGY Hgb 7.9 12.0 - 07 [facility] [place] 16.0 /2012 [facility] HEMATOLOGY RBC 3.12 4.20 - 07 [facility] [place] 5.40 /2012 [facility] HEMATOLOGY MPV 8.0 7.4 - 10.4 07 Normal [facility] HEMATOLOGY Platelet 294 133 - 450 07 Normal [facility] HEMATOLOGY MCH 25.3 27.0 - 07 [facility] [place] 31.0 /2012 [facility] HEMATOLOGY MCV 79.7 81.0 - 07/ [facility] [place] 99.0 /2012 [facility] HEMATOLOGY Hct 24.9 36.0 - 07/ [facility] [place] 48.0 /2012 [facility] HEMATOLOGY WBC 8.8 3.7 - 10.4 07/ Normal [facility] HEMATOLOGY RDW 21.4 11.5 - 07/03 [facility] [place] 14.5 /2012 [facility] HEMATOLOGY MCHC 31.8 32.0 - 07/03 [facility] [place] 36.0 /2012 [facility] CHEMISTRY Troponin-I <0.02 0.00 - 07 Normal [place] 0.40 /2012 [facility] CHEMISTRY Total CK 26 12 - 191 07/ Normal [facility] CHEMISTRY A/G Ratio 0.6 0.7 - 1.6 07/ LOW [facility] CHEMISTRY Bili Total 0.6 0.2 - 1.3 07/ Normal [facility] CHEMISTRY Bili Direct 0.3 0.0 - 0.3 07/ Normal [facility] CHEMISTRY Alk Phos 190 39 - 136 07/ HI [facility] CHEMISTRY Total Protein 5.2 6.4 - 8.4 07/ [facility] CHEMISTRY Globulin 3.2 2.0 - 4.0 07/ Normal [facility] CHEMISTRY Bili Indirect 0.3 0.0 - 1.0 07/ Normal [facility] CHEMISTRY AST 11 0 - 37 07/ Normal [facility] CHEMISTRY Albumin Lvl 2.0 3.5 - 5.0 07 LOW [facility] CHEMISTRY ALT 19 0 - 65 07/ Normal [facility] CHEMISTRY Amylase Lvl 26 25 - 115 07/ Normal [facility] CHEMISTRY Lipase Lvl 49 73 - 393 07/ [facility] HEMATOLOGY MPV 8.3 7.4 - 10.4 07/ Normal [facility] HEMATOLOGY MCH 24.7 27.0 - 07/ [facility] [place] 31.0 /2012 [facility] [place] HEMATOLOGY MCHC 32.6 32.0 - 07/02 Normal [place] 36.0 /2012 [facility] HEMATOLOGY RDW 20.1 11.5 - 07/ [facility] [place] 14.5 /2012 [facility] [place] HEMATOLOGY Platelet 362 133 - 450 07/ Normal [facility] HEMATOLOGY MCV 75.7 81.0 - 07/02 [facility] [place] 99.0 /2012 [facility] [place] HEMATOLOGY Hgb 8.8 12.0 - 07/02 [facility] [place] 16.0 /2012 [facility] [place] HEMATOLOGY Hct 26.9 36.0 - 07/02 [facility] [place] 48.0 /2012 [facility] HEMATOLOGY RBC 3.56 4.20 - 07/02 [facility] [place] 5.40 /2012 [facility] [place] HEMATOLOGY WBC 11.1 3.7 - 10.4 07/ [facility] [place] HEMATOLOGY Lymphocytes # 2.4 1.0 - 5.5 07/ Normal [facility] HEMATOLOGY Hypochrom Slight None Seen 03/07 Normal [facility] (03/07/2013 07:43:59) [facility] HEMATOLOGY Microcyte 2+ None Seen 03/07 [facility] *ABN* Medical (03/07/2013 07:43:59) Center HEMATOLOGY Anisocyte 1+ None Seen 03/07 [facility] *ABN* Medical (03/07/2013 07:43:59) Center HEMATOLOGY Basophils # 0.1 0.0 - 0.2 03/07 Normal [facility] HEMATOLOGY Polychrom Slight None Seen 03/07 Normal [facility] (03/07/2013 07:43:59) [facility] HEMATOLOGY Basophils 0.8 0.0 - 1.0 03/07 [facility] HEMATOLOGY Eosinophils 1.3 0.0 - 4.0 03/07 [facility] HEMATOLOGY Segs-Bands # 7.6 1.5 - 8.1 03/07 [facility] HEMATOLOGY Monocytes 8.1 2.0 - 12.0 03/07 Normal [facility] HEMATOLOGY Monocytes # 0.9 0.0 - 0.8 03/07 HI [facility] HEMATOLOGY Eosinophils # 0.1 0.0 - 0.5 03/07 [facility] HEMATOLOGY Target Cell Slight None Seen 03/07 Psychiatric * Medical (03/07/2013 07:43:59) [place] HEMATOLOGY Plt Morph Normal 03/07 [facility] (03/07/2013 07:43:59) [facility] HEMATOLOGY Lymphocytes 22.0 20.0 - 03/07 [facility] 40.0 [facility] HEMATOLOGY Segs 67.8 45.0 - 07 Normal [facility] 75.0 [facility] CHEMISTRY Lactic Acid 1.7 0.5 - 2.2 03/07 Normal [facility] Lvl [facility] CHEMISTRY Total CK 21 12 - 191 03/07 Normal [facility] CHEMISTRY Troponin-I <0.02 0.00 - 07 Normal [facility] 0.40 /2012 [facility] CHEMISTRY eGFR 104 03/07 NA <sup>6</sup>R [...] CO2 27 24 - 32 03/07 Normal [facility] CHEMISTRY Potassium Lvl 3.6 3.5 - 5.1 03/07 Normal [facility] CHEMISTRY Chloride Lvl 99 95 - 109 03/07 [facility] CHEMISTRY Sodium Lvl 134 135 - 145 07 [facility] CHEMISTRY BUN 5 7 - 22 07 [facility] CHEMISTRY Creatinine 0.7 0.5 - 1.4 03/07 Normal [facility] CHEMISTRY Glucose Lvl 233 70 - 99 03/07 HI <sup>9</sup>I nterpretive Medical Data: Adult Center reference range values reflect the clinical guidelines
of the [place] [employer]. CHEMISTRY Calcium Lvl 7.7 8.5 - 10.5 03/07 [facility] CHEMISTRY AGAP 11.6 10.0 - 07 Normal [facility] 20.0 /2012 [facility] CHEMISTRY Temp Art 37.0 03/07 NA [facility] CHEMISTRY pH Art 7.41 7.35 - 07 [facility] 7.45 /2012 [facility] CHEMISTRY pCO2 Art 34 35 - 45 07 [facility] CHEMISTRY O2 Sat Art 97.5 95.0 - 07 [facility] [place] 100.0 /2012 [facility] CHEMISTRY HCO3 Art 22 22 - 26 07 [facility] CHEMISTRY BE Art -2 -2-2 - 2 03/07 [facility] CHEMISTRY pO2 Art 96 80 - 100 03/07 [facility] CHEMISTRY Temp Mark 37.0 03/07 NA [facility] CHEMISTRY pO2 Mark 20 20 - 49 03/07 Normal [facility] CHEMISTRY HCO3 Mark 21 22 - 26 07 LOW [facility] CHEMISTRY BE Mark -2 -2-2 - 2 03/07 Normal [facility] CHEMISTRY O2 Sat Mark 36.2 40.0 - 03/07 LOW [place] 70.0 /2012 [facility] CHEMISTRY pCO2 Mark 29 38 - 52 03/07 LOW [facility] CHEMISTRY pH Mark 7.46 7.28 - 03/07 HI [facility] 7.42 /2012 [facility] CHEMISTRY Lactic Acid 2.6 0.5 - 2.2 03/07 HI [facility] Lvl /2012 [facility] CHEMISTRY Phosphorus 3.1 2.5 - 4.5 03/07 Normal [facility] CHEMISTRY Magnesium Lvl 1.6 1.8 - 2.4 03/07 LOW [facility] CHEMISTRY Total CK 31 12 - 191 03/07 Normal [facility] CHEMISTRY Troponin-I <0.02 0.00 - 03/07 Normal [facility] 0.40 /2012 [facility] CHEMISTRY U Preg Negative Negative 03/06 Normal [facility] (03/06/2013 18:25:00) Medical Center URINALYSIS UA Amorph Occasional /HPF None Seen 03/06 ABN [facility] [place] *ABN* /2012 Medical (03/06/2013 18:25:00) Center URINALYSIS UA Mucus Few /LPF None Seen 03/06 Normal [facility] (03/06/2013 18:25:00) Medical Center URINALYSIS Micro? Performed 03/06 Normal [facility] (03/06/2013 18:25:00) Medical Center URINALYSIS UA Sq Epi Moderate /LPF Few 03/06 ABN [facility] *ABN* /2012 Medical (03/06/2013 18:25:00) Center URINALYSIS UA WBC 0-2 /HPF None Seen 03/06 Normal [facility] (03/06/2013 18:25:00) Medical Center URINALYSIS UA RBC None Seen 0 - 2 03/06 Normal [facility] (03/06/2013 18:25:00) /2012 Medical Center URINALYSIS UA Bacteria Few /HPF None Seen 03/06 Normal [facility] (03/06/2013 18:25:00) Medical Center URINALYSIS UA Bili Negative Negative 03/06 NA [facility] *NA* /2012 Medical (03/06/2013 18:25:00) Center URINALYSIS UA 0.2 0.1 - 1.0 03/06 Normal [facility] Urobilinogen /2012 Medical Center URINALYSIS UA Nitrite Negative Negative 03/06 Normal [facility] (03/06/2013 18:25:00) Medical Center URINALYSIS UA Leuk Est Trace Negative 03/06 ABN [facility] *ABN* Medical (03/06/2013 18:25:00) Center URINALYSIS UA Blood Negative Negative 03/06 Normal [facility] (03/06/2013 18:25:00) Medical Center URINALYSIS UA Ketones 40 mg/dL Negative 03/[facility]:25:00[facility] Center URINALYSIS UA Turbidity Clear Clear 03/06 Normal [facility] (03/06/2013 18:25:00) Medical Center URINALYSIS UA Color Yellow Yellow 03/06 NA [facility] *NA* Medical (03/06/2013 18:25:00) Center URINALYSIS UA Spec Grav 1.015 <=1.030 03/06 Normal [facility] Center URINALYSIS UA Protein Negative Negative 03/06 Normal [facility] (03/06/2013 18:25:00) Medical Center URINALYSIS UA Glucose 250 mg/dL Negative [facility] 18:25:00[facility] Center URINALYSIS UA pH 7.5 5.0 - 8.0 03/06 Normal [facility] Center BEDSIDE Comment1 Notify 12/07 NA [facility] GLUCOSE RN/MD /2012 Medical TESTING Center BEDSIDE Gluc POC 64 70 - 99 12/07 LOW <sup>3</sup>I [facility] Data: Center Upper Reportable Limit: 200 mg/dL. BEDSIDE Gluc POC 50 70 - 99 12/07 LOW <sup>4</sup>I [facility] Data: Center Upper Reportable Limit: 200 mg/dL. BEDSIDE Comment1 Notify 12/07 NA [facility] GLUCOSE RN/ /2012 Medical TESTING Center BEDSIDE Gluc POC 45 70 - 99 12/07 LOW <sup>5</sup>I [facility] GLUCOSE [facility] /2012 nterpretive Medical TESTING Data: Center Upper Reportable Limit: 200 mg/dL. BEDSIDE Comment1 Notify 12/07 NA [facility] GLUCOSE RN/ /2012 Medical TESTING Center CHEMISTRY eGFR 109 12/07 NA <sup>7</sup>R [facility] esult Medical Comment: The Center eGFR [...] Lvl 8.3 8.5 - 10.5 12/07 LOW [facility] CHEMISTRY AGAP 12.8 10.0 - 12/07 Normal [facility] 20.0 [facility] Center CHEMISTRY BUN 2 7 - 22 12/07 LOW [facility] Center CHEMISTRY Glucose Lvl 95 70 - 99 12/07 Normal <sup>10</sup> Interpretive Medical Data: Adult Center reference range values reflect the clinical guidelines
of the [place] [employer]. CHEMISTRY Potassium Lvl 3.8 3.5 - 5.1 12/07 Normal [facility] Center CHEMISTRY Creatinine 0.6 0.5 - 1.4 12/07 Normal [facility] Lvl /2012 Medical Center CHEMISTRY Sodium Lvl 140 135 - 145 12/07 Normal [facility] Center CHEMISTRY Chloride Lvl 105 95 - 109 04/03 Normal [facility] CHEMISTRY CO2 26 24 - 32 12/07 Normal [facility] BEDSIDE Comment2 Verify 12/06 NA [facility] GLUCOSE w/Lab [facility] TESTING Center BEDSIDE Comment2 Verify 12/06 NA [facility] GLUCOSE w/Lab [facility] TESTING Center CHEMISTRY AGAP 13.5 10.0 - 04 Normal [facility] 20.0 /2012 [facility] CHEMISTRY Calcium Lvl 8.1 8.5 - 10.5 12/06 LOW [facility] CHEMISTRY CO2 28 24 - 32 12/06 Normal [facility] CHEMISTRY Chloride Lvl 101 95 - 109 12/06 Normal [facility] CHEMISTRY eGFR 104 12/06 NA <sup>8</sup>R [...] values reflect the clinical guidelines
of the [place] [employer]. CHEMISTRY BUN 2 7 - 22 12/06 LOW [facility] CHEMISTRY Creatinine 0.7 0.5 - 1.4 12/06 Normal [facility] CHEMISTRY Sodium Lvl 139 135 - 145 12/06 Normal [facility] CHEMISTRY Potassium Lvl 3.5 3.5 - 5.1 12/06 Normal [facility] CHEMISTRY Lipase Lvl 62 73 - 393 04/ LOW [facility] CHEMISTRY Alk Phos 92 39 - 136 / Normal [facility] CHEMISTRY Albumin Lvl 2.7 3.5 - 5.0 / LOW [facility] CHEMISTRY Total Protein 5.8 6.4 - 8.4 / LOW [facility] CHEMISTRY Globulin 3.1 2.0 - 4.0 / Normal [facility] CHEMISTRY A/G Ratio 0.9 0.7 - 1.6 / Normal [facility] CHEMISTRY AST 74 0 - 37 04/ HI [facility] CHEMISTRY ALT 50 0 - 65 / Normal 2012 [facility] CHEMISTRY Bili Indirect 0.1 0.0 - 1.0 12/06 Normal [facility] CHEMISTRY Bili Total 0.2 0.2 - 1.3 12/06 Normal [facility] CHEMISTRY Bili Direct 0.1 0.0 - 0.3 12/06 Normal [facility] CHEMISTRY eGFR 109 12/05 NA <sup>9</sup>R [...] values reflect the clinical guidelines
of the [place] [employer]. CHEMISTRY Creatinine 0.6 0.5 - 1.4 12/05 Normal [place] Lvl /2012 [facility] CHEMISTRY BUN 1 7 - 22 04 LOW [facility] CHEMISTRY Chloride Lvl 102 95 - 109 12/05 Normal [facility] CHEMISTRY Potassium Lvl 3.3 3.5 - 5.1 12/05 LOW [facility] CHEMISTRY Sodium Lvl 140 135 - 145 12/05 Normal [facility] CHEMISTRY Calcium Lvl 7.9 8.5 - 10.5 12/05 LOW [facility] CHEMISTRY CO2 29 24 - 32 04 Normal [facility] CHEMISTRY AGAP 12.3 10.0 - 12/05 Normal [place] 20.0 Medical Center CHEMISTRY Ca Norm mgdL 4.84 4.65 - 12/03 Normal [place] . [facility] CHEMISTRY Ca Ion mgdL 4.84 4.65 - 12/03 Normal [place] 5. Medical Center CHEMISTRY Ca Ion 1.21 1.16 - 12/03 Normal [place] 1. [facility] Center CHEMISTRY Ca Norm 1.21 1.16 - 12/03 Normal [place] 1. [facility] Center CHEMISTRY Magnesium Lvl 1.8 1.8 - 2.4 12/03 Normal [facility] Center CHEMISTRY Phosphorus 3.4 2.5 - 4.5 12/03 Normal [facility] HEMATOLOGY Lymphocytes # 1.8 1.0 - 5.5 12/03 Normal [facility] HEMATOLOGY Lymphocytes 23.6 20.0 - 12/03 Normal [place] 40.0 Medical Center HEMATOLOGY Eosinophils 2.9 0.0 - 4.0 12/03 Normal [facility] HEMATOLOGY Monocytes 9.1 2.0 - 12.0 12/03 Normal [facility] HEMATOLOGY Basophils 0.6 0.0 - 1.0 12/03 Normal [facility] HEMATOLOGY Segs-Bands # 5.0 1.5 - 8.1 12/03 Normal [facility] HEMATOLOGY Segs 63.8 45.0 - 12/03 Normal [place] 75.0 /2012 [facility] Center HEMATOLOGY Monocytes # 0.7 0.0 - 0.8 12/03 Normal [facility] Center HEMATOLOGY Eosinophils # 0.2 0.0 - 0.5 12/03 Normal [facility] HEMATOLOGY Microcyte 1+ None Seen 12/03 ABN [facility] *ABN* /2012 Medical (12/03/2012 01:02:00) Center HEMATOLOGY WBC 7.8 3.7 - 10.4 12/03 Normal [facility] HEMATOLOGY Hct 27.8 36.0 - 12/03 LOW [facility] 48.0 /2012 [facility] HEMATOLOGY MPV 8.5 7.4 - 10.4 12/03 Normal [facility] HEMATOLOGY MCHC 32.4 32.0 - 12/03 Normal [facility] 36.0 /2012 [facility] HEMATOLOGY RDW 18.9 11.5 - 12/03 HI [facility] 14.5 /2012 [facility] HEMATOLOGY MCH 24.6 27.0 - 12/03 LOW [facility] 31.0 /2012 [facility] HEMATOLOGY RBC 3.66 4.20 - 12/03 LOW [facility] 5.40 /2012 [facility] HEMATOLOGY MCV 75.9 81.0 - 12/03 LOW [facility] 99.0 /2012 [facility] HEMATOLOGY Platelet 224 133 - 450 12/03 Normal [facility] HEMATOLOGY Hgb 9.0 12.0 - 12/03 LOW [facility] 16.0 /2012 [facility] Center Microbiolog Culture: 12/02 [facility] y Blood /2012 [facility] Center Microbiolog Culture: MRSA 12/02 [facility] y /2012 [facility] Microbiolog Culture: 12/02 [facility] y Resistant [facility] Center Screen CHEMISTRY Ketone 1.42 <=0.27 12/02 HI [facility] Quantitative [facility] URINALYSIS UA WBC 1 0 - 5 12/02 Normal [facility] URINALYSIS UA RBC <1 0 - 2 12/02 Normal [facility] URINALYSIS UA 0.1 - 1.0 12/02 [facility] Urobilinogen /2012 [facility] Center URINALYSIS UA Sq Epi Moderate /LPF Few 12/02 Psychiatric *ABN* Medical (12/02/2012 04:02:55) Center URINALYSIS UA Leuk Est Negative Negative 12/02 Normal [facility] (12/02/2012 04:02:55) Medical Center URINALYSIS UA Nitrite Negative Negative 12/02 Normal [facility] (12/02/2012 04:02:55) Medical Center URINALYSIS UA Mucus Few /LPF None Seen 12/02 [facility] *NA* Medical (12/02/2012 04:02:55) Center URINALYSIS UA Ketones 40 mg/dL Negative 12/02 ABN [facility] *ABN* Medical (12/02/2012 04:02:55) Center URINALYSIS UA Blood Negative Negative 12/02 Normal [facility] (12/02/2012 04:02:55) Medical Center URINALYSIS UA Glucose >=1000 mg/dL Negative 12/02 ABN [facility] *ABN* Medical (12/02/2012 04:02:55) Center URINALYSIS UA Bili Negative Negative 12/02 NA [facility] *NA* Medical (12/02/2012 04:02:55) Center URINALYSIS UA Protein Negative mg/dL Negative 12/02 Normal [facility] (12/02/2012 04:02:55) Medical Center URINALYSIS UA Turbidity Clear Clear 12/02 Normal [facility] (12/02/2012 04:02:55) Medical Center URINALYSIS UA pH 5.5 5.0 - 8.0 12/02 Normal [facility] Center URINALYSIS UA Spec Grav 1.010 <=1.030 12/02 Normal [facility] Center URINALYSIS UA Color Yellow Yellow 12/02 NA [facility] *NA* Medical (12/02/2012 04:02:55) Center HEMATOLOGY MPV 8.9 7.4 - 10.4 12/02 Normal [facility] HEMATOLOGY Hct 27.9 36.0 - 12/02 LOW [place] 48.0 /2012 [facility] HEMATOLOGY MCV 76.1 81.0 - 12/02 LOW [facility] 99.0 /2012 [facility] HEMATOLOGY MCH 25.2 27.0 - 12/02 LOW [place] 31.0 /2012 [facility] HEMATOLOGY MCHC 33.2 32.0 - 12/02 Normal [facility] 36.0 /2012 [facility] HEMATOLOGY RDW 19.3 11.5 - 12/02 HI [place] 14.5 [facility] HEMATOLOGY Platelet 224 133 - 450 12/02 Normal [facility] HEMATOLOGY WBC 8.6 3.7 - 10.4 12/02 Normal [facility] HEMATOLOGY Hgb 9.3 12.0 - 12/02 LOW [place] 16.0 [facility] HEMATOLOGY RBC 3.67 4.20 - 12/02 LOW [facility] [place] 5.40 /2012 [facility] HEMATOLOGY Segs-Bands # 6.4 1.5 - 8.1 12/02 Normal [facility] HEMATOLOGY Lymphocytes # 1.5 1.0 - 5.5 12/02 Normal [facility] HEMATOLOGY Eosinophils 0.6 0.0 - 4.0 12/02 Normal [facility] HEMATOLOGY Basophils 0.7 0.0 - 1.0 12/02 Normal [facility] HEMATOLOGY Lymphocytes 17.3 20.0 - 12/02 LOW [place] 40.0 [facility] HEMATOLOGY Monocytes # 0.7 0.0 - 0.8 12/02 Normal [facility] HEMATOLOGY Microcyte 1+ None Seen 12/02 [facility] *ABN* /2012 Medical (12/02/2012 04:02:51) [place] HEMATOLOGY Eosinophils # 0.1 0.0 - 0.5 12/02 Normal [facility] HEMATOLOGY Basophils # 0.1 0.0 - 0.2 12/02 Normal [facility] HEMATOLOGY Segs 73.8 45.0 - 12/02 Normal [place] 75.0 [facility] HEMATOLOGY Monocytes 7.6 2.0 - 12.0 12/02 Normal [facility] Microbiolog Culture: 12/02 [facility] y [facility] CHEMISTRY POC A Glu 305 70 - 99 12/02 HI [facility] CHEMISTRY POC A Hct 29.0 36.0 - 12/02 LOW [facility] 48.0 [facility] CHEMISTRY POC A O2 Sat 97.0 95.0 - 12/02 Normal 100.0 [facility] CHEMISTRY POC A K 3.4 3.5 - 5.1 12/02 LOW [facility] CHEMISTRY POC A Na 130 135 - 145 12/02 LOW [facility] CHEMISTRY POC A PCO2 38 35 - 45 12/02 Normal [facility] CHEMISTRY POC A BE 2 -2-2 - 2 12/02 Normal [facility] CHEMISTRY POC A HCO3 26 22 - 26 12/02 Normal [facility] CHEMISTRY POC A Source ART 12/02 NA [facility] CHEMISTRY POC A PO2 89 80 - 100 12/02 Normal [facility] CHEMISTRY POC A pH 7.44 7.35 - 12/02 Normal [facility] [place] 7.45 [facility] Center CHEMISTRY POC A Temp 37.0 12/02 NA [facility] CHEMISTRY POC A Ca Ion 1.12 1.16 - 12/02 LOW [place] 1.30 [facility] CHEMISTRY POC A LA 0.8 0.5 - 2.2 12/02 Normal [facility] Center CHEMISTRY Magnesium Lvl 1.9 1.8 - 2.4 12/02 Normal Medical [facility] CHEMISTRY Phosphorus 2.7 2.5 - 4.5 12/02 Normal [facility] CHEMISTRY Ca Norm mgdL 4.36 4.65 - 12/02 LOW [place] 5. [facility] CHEMISTRY Ca Ion 1.14 1.16 - 12/02 LOW [place] 1.30 [facility] CHEMISTRY Ca Ion mgdL 4.56 4.65 - 12/02 LOW [place] 5. [facility] CHEMISTRY Ca Norm 1.09 1.16 - 12/02 LOW [place] 1. [facility] Center HEMATOLOGY Platelet 223 133 - 450 12/02 Normal [facility] Center HEMATOLOGY MPV 9.2 7.4 - 10.4 12/02 Normal [facility] HEMATOLOGY MCHC 32.3 32.0 - 12/02 Normal [place] 36.0 [facility] Center HEMATOLOGY RDW 19.2 11.5 - 12/02 HI [place] 14.5 Medical Center HEMATOLOGY WBC 7.6 3.7 - 10.4 12/02 Normal [facility] Center HEMATOLOGY Hgb 9.2 12.0 - 12/02 LOW [place] 16.0 [facility] Center HEMATOLOGY Hct 28.6 36.0 - 12/02 LOW [place] 48.0 /2012 [facility] Center HEMATOLOGY MCV 76.3 81.0 - 12/02 LOW [place] 99.0 /2012 Medical Center HEMATOLOGY MCH 24.6 27.0 - 12/02 LOW [place] 31.0 [facility] Center HEMATOLOGY RBC 3.74 4.20 - 12/02 LOW [place] 5.40 /2012 [facility] HEMATOLOGY Microcyte 1+ None Seen 12/02 ABN [place] *ABN* /2012 Medical (12/02/2012 03:00:00) Center HEMATOLOGY Basophils # 0.1 0.0 - 0.2 12/02 Normal [facility] HEMATOLOGY Monocytes # 0.6 0.0 - 0.8 12/02 Normal [facility] HEMATOLOGY Lymphocytes # 1.9 1.0 - 5.5 12/02 Normal [facility] HEMATOLOGY Segs-Bands # 5.0 1.5 - 8.1 12/02 Normal [facility] HEMATOLOGY Segs 65.5 45.0 - 12/02 Normal [place] 75.0 /2012 [facility] HEMATOLOGY Lymphocytes 25.0 20.0 - 12/02 Normal [place] 40.0 [facility] HEMATOLOGY Monocytes 8.4 2.0 - 12.0 12/02 Normal [facility] HEMATOLOGY Eosinophils 0.4 0.0 - 4.0 12/02 Normal [facility] HEMATOLOGY Basophils 0.7 0.0 - 1.0 12/02 Normal [facility] CHEMISTRY Magnesium Lvl 2.0 1.8 - 2.4 12/01 Normal [facility] CHEMISTRY Ca Norm mgdL 4.48 4.65 - 12/01 LOW [facility] 5. [facility] CHEMISTRY Ca Ion mgdL 4.68 4.65 - 12/01 Normal [facility] 5. [facility] CHEMISTRY Ca Ion 1.17 1.16 - 12/01 Normal [facility] 1. [facility] CHEMISTRY Ca Norm 1.12 1.16 - 12/01 LOW [facility] 1. [facility] CHEMISTRY Phosphorus 2.7 2.5 - 4.5 12/01 Normal [facility] URINALYSIS UA 0.1 - 1.0 11/30 NA [facility] Urobilinogen [facility] Center URINALYSIS UA Mucus Few /LPF None Seen 11/30 NA [facility] *NA* /2012 Medical (11/30/2012 17:41:33) Center URINALYSIS UA WBC <1 0 - 5 11/30 Normal [facility] Center URINALYSIS UA Sq Epi Moderate /LPF Few 11/30 ABN [facility] *ABN* Medical (11/30/2012 17:41:33) Center URINALYSIS UA Protein Negative mg/dL Negative 11/30 Normal [facility] (11/30/2012 17:41:33) [facility] Center URINALYSIS UA pH 5.0 5.0 - 8.0 11/30 Normal [facility] Center URINALYSIS UA Spec Grav 1.004 <=1.030 11/30 Normal Medical Center URINALYSIS UA Turbidity Clear Clear 11/30 Normal [facility] (11/30/2012 17:41:33) Medical Center URINALYSIS UA Color Light Yellow Yellow 11/30 NA [facility] *NA* Medical (11/30/2012 17:41:33) Center URINALYSIS UA Leuk Est Negative Negative 11/30 Normal [facility] (11/30/2012 17:41:33) Medical Center URINALYSIS UA Nitrite Negative Negative 11/30 Normal [facility] (11/30/2012 17:41:33) Medical Center URINALYSIS UA Blood Negative Negative 11/30 Normal [facility] (11/30/2012 17:41:33) Medical Center URINALYSIS UA Bili Negative Negative 11/30 NA [facility] *NA* Medical (11/30/2012 17:41:33) Center URINALYSIS UA Ketones 10 mg/dL Negative 11/30 ABN [facility] *ABN* Medical (11/30/2012 17:41:33) Center URINALYSIS UA Glucose Negative mg/dL Negative 11/30 NA [facility] *NA* /2012 Medical (11/30/2012 17:41:33) Center CHEMISTRY Ketone 1.65 <=0.27 11/30 HI [facility] HEMATOLOGY PT 14.1 12.0 - 11/30 Normal [facility] 14.7 Medical Center HEMATOLOGY PTT 28.1 22.9 - 11/30 Normal <sup>18</sup> [facility] 35.8 Interpretive Medical Data: [facility]arin Center Therapeutic Range: 57 - 92 Seconds HEMATOLOGY INR 1.07 0.85 - 11/30 Normal <sup>16</sup> [facility] 1. Interpretive Medical Data: Center RECOMMENDED [...] ranges. CHEMISTRY U Chloride 134 11/30 NA [facility] CHEMISTRY Bili Total 0.4 0.2 - 1.3 11/30 Normal [facility] CHEMISTRY Total Protein 6.3 6.4 - 8.4 11/30 LOW [facility] CHEMISTRY Albumin Lvl 2.9 3.5 - 5.0 11/30 LOW [facility] CHEMISTRY Alk Phos 127 39 - 136 11/30 Normal [facility] CHEMISTRY Bili Direct 0.2 0.0 - 0.3 11/30 Normal [facility] CHEMISTRY AST 22 0 - 37 11/30 Normal [facility] CHEMISTRY ALT 20 0 - 65 11/30 Normal [facility] CHEMISTRY A/G Ratio 0.9 0.7 - 1.6 11/30 Normal [facility] CHEMISTRY Bili Indirect 0.2 0.0 - 1.0 11/30 Normal [facility] CHEMISTRY Globulin 3.4 2.0 - 4.0 11/30 Normal [facility] HEMATOLOGY Basophils # 0.1 0.0 - 0.2 11/30 Normal [facility] HEMATOLOGY PT 13.9 12.0 - 11/30 Normal [facility] 14.7 [facility] HEMATOLOGY PTT 26.5 22.9 - 11/30 Normal <sup>19</sup> [facility] 35.8 /2012 Interpretive Medical Data: [facility] Center Therapeutic Range: 57 - 92 Seconds HEMATOLOGY INR 1.05 0.85 - 11/30 Normal <sup>17</sup> [facility] 1. Interpretive Medical Data: Center RECOMMENDED RANGES FOR PROTIME INR:
2.0-3.0 for most medical and surgical thromboemboli c states.
2.5-3.5 for artificial heart valves and recurrent embolism.<br/ >
INR SHOULD BE USED ONLY FOR PATIENTS ON STABLE ANTICOAGULANT THERAPY. CHEMISTRY POC V Temp 37.0 11/29 NA [facility] CHEMISTRY POC V Ion Ca 1.16 1.16 - 11/29 Normal [facility] 1. [facility] CHEMISTRY POC V K 3.5 3.5 [...] PCO2 26 35 - 45 11/29 CRIT [facility] CHEMISTRY POC A PO2 115 80 - 100 11/29 HI [facility] CHEMISTRY POC A pH 7.33 7.35 - 11/29 [facility] BACTERIAL - MRSA by PCR Positive 1, 2 11/29 ABN <sup>1</sup>R [facility] SEROLOGY *ABN* /2012 esult Medical (11/29/2012 [...] testing. CHEMISTRY Temp Art 37.0 11/29 NA [facility] CHEMISTRY O2 Sat Art 96.6 95.0 - 11/29 Normal [facility] 100.0 [facility] CHEMISTRY pO2 Art 96 80 - 100 11/29 Normal [facility] CHEMISTRY pCO2 Art 25 35 - 45 11/29 CRIT <sup>15</sup> Result Medical Comment: Center Critical Result(s) called to jose rodriguez at _11/29/2012 12:25:56 CDT byолегk_. Read back OK. CHEMISTRY BE Art -12 -2-2 - 2 11/29 LOW [facility] CHEMISTRY HCO3 Art 12 - 26 11/29 LOW [facility] CHEMISTRY pH Art 7.30 7.35 - 11/29 [facility] 7.45 /2012 [facility] CHEMISTRY A/G Ratio 0.8 0.7 - 1.6 11/29 Normal [facility] Center CHEMISTRY Globulin 4.0 2.0 - 4.0 11/29 Normal [facility] CHEMISTRY AST 17 0 - 37 11/29 Normal [facility] CHEMISTRY Bili Total 0.8 0.2 - 1.3 11/29 Normal [facility] CHEMISTRY B/C Ratio 14 6 - 25 11/29 Normal [facility] CHEMISTRY Total Protein 7.4 6.4 - 8.4 11/29 Normal [facility] CHEMISTRY ALT 22 0 - 65 11/29 Normal Medical Center CHEMISTRY Albumin Lvl 3.4 3.5 - 5.0 11/29 LOW [facility] CHEMISTRY Alk Phos 126 39 - 136 11/29 Normal [facility] CHEMISTRY Troponin-I <0.02 0.00 - 11/29 Normal [facility] 0.40 [facility] Center CHEMISTRY Lipase Lvl 70 73 - 393 11/29 LOW [facility] CHEMISTRY B/C Ratio 10 6 - 25 11/29 Normal [facility] Center HEMATOLOGY Hypochrom Slight None Seen 11/29 Normal [facility] (11/28/2012 21:00:20) Medical Center HEMATOLOGY Polychrom Slight None Seen 11/29 Normal [facility] (11/28/2012 21:00:20) Medical Center HEMATOLOGY Anisocyte 1+ None Seen 11/29 Psychiatric *ABN* Medical (11/28/2012 21:00:20) Center HEMATOLOGY Large Plt Slight None Seen 11/29 ABN [facility] *ABN* Medical (11/28/2012 21:00:20) Center HEMATOLOGY Eosinophils # 0.2 0.0 - 0.5 11/29 Normal Medical Center CHEMISTRY U Preg Negative Negative 11/29 Normal [facility] (11/28/2012 20:55:00) Medical Center URINALYSIS UA Blood Negative Negative 11/29 Normal [facility] (11/28/2012 20:55:00) Medical Center URINALYSIS UA Bili Small 6 Negative 11/29 ABN <sup>6</sup>R [facility] *ABN* esult Medical (11/28/2012 20:55:00) Comment: Center Interpret positive bilirubin results with caution. Confirmatory testing
n ot possible due to the unavailabilit y of reagent. Correlation with
seru m chemistry results recommended. URINALYSIS UA Protein Negative Negative 11/29 Normal [facility] (11/28/2012 20:55:00) [facility] URINALYSIS Micro? Not Indicated 11/29 Normal [facility] (11/28/2012 20:55:00) Medical Center URINALYSIS UA Glucose Negative Negative 11/29 Normal [facility] (11/28/2012 20:55:00) [facility] Center URINALYSIS UA Ketones 40 mg/dL Negative 11/29 ABN [facility] *ABN* [facility] (11/28/2012 20:55:00) Center URINALYSIS UA Leuk Est Negative Negative 11/29 Normal [facility] (11/28/2012 20:55:00) [facility] URINALYSIS UA 0.2 0.1 - 1.0 11/29 Normal [facility] Urobilinogen [facility] URINALYSIS UA Nitrite Negative Negative 11/29 Normal [facility] (11/28/2012 20:55:00) [facility] Center URINALYSIS UA Spec Grav 1.010 <=1.030 11/29 Normal [facility] URINALYSIS UA pH 6.0 5.0 - 8.0 11/29 Normal [facility] Center URINALYSIS UA Color Yellow Yellow 11/29 NA [facility] *NA* [facility] (11/28/2012 20:55:00) Center URINALYSIS UA Turbidity Clear Clear 11/29 Normal [facility] (11/28/2012 20:55:00) Medical Center BEDSIDE Comment1 Notify 11/17 NA [facility] GLUCOSE MARTÍNEZ/ Medical TESTING Center BEDSIDE Gluc POC 219 70 - 99 11/17 HI <sup>1</sup>I [facility] GLUCOSE Lif[facility] nterpretive Medical TESTING Data: [place] Reportable Limit: 200 mg/dL. BEDSIDE Gluc POC 255 70 - 99 11/17 HI <sup>2</sup>I [facility] GLUCOSE [facility] nterpretive Medical TESTING Data: [place] Reportable Limit: 200 mg/dL. BEDSIDE Comment1 Notify 11/17 NA [facility] GLUCOSE MARTÍNEZ/ Medical TESTING Center CHEMISTRY Troponin-T <0.010 0.000 - 11/17 Normal [facility] 0.100 /2012 [facility] CHEMISTRY Troponin-I <0.02 0.00 - 11/17 Normal [facility] 0.40 /2012 [facility] CHEMISTRY Total CK 52 12 - 191 11/17 Normal [facility] CHEMISTRY eGFR 109 11/17 NA <sup>4</sup>R [...] Calcium Lvl 7.7 8.5 - 10.5 11/17 [facility] CHEMISTRY AGAP 16.2 10.0 - 11/17 [facility] 20.0 [facility] CHEMISTRY Chloride Lvl 100 95 - 109 11/17 [facility] CHEMISTRY Potassium Lvl 4.2 3.5 - 5.1 11/17 Normal [facility] CHEMISTRY Sodium Lvl 134 135 - 145 11/17 [facility] CHEMISTRY CO2 22 24 - 32 11/17 [facility] CHEMISTRY Creatinine 0.6 0.5 - 1.4 11/17 Normal [facility] CHEMISTRY BUN 4 7 - 22 11/17 [facility] CHEMISTRY Glucose Lvl 237 70 - 99 11/17 HI <sup>6</sup>I nterpretive Medical Data: Adult Center reference range values reflect the clinical guidelines
of the [place] [employer]. CHEMISTRY Magnesium Lvl 1.4 1.8 - 2.4 11/17 LOW [facility] CHEMISTRY Phosphorus 3.4 2.5 - 4.5 11/17 Normal [facility] HEMATOLOGY Segs 60.3 45.0 - 11/17 Normal [facility] 75.0 [facility] HEMATOLOGY Monocytes 9.0 2.0 - 12.0 11/17 Normal [facility] HEMATOLOGY Lymphocytes 27.8 20.0 - 11/17 Normal [facility] 40.0 [facility] HEMATOLOGY Eosinophils 2.1 0.0 - 4.0 11/17 Normal [facility] HEMATOLOGY Lymphocytes # 2.3 1.0 - 5.5 11/17 Normal [facility] HEMATOLOGY Eosinophils # 0.2 0.0 - 0.5 11/17 Normal [facility] HEMATOLOGY Basophils 0.8 0.0 - 1.0 11/17 Normal [facility] HEMATOLOGY Segs-Bands # 5.1 1.5 - 8.1 11/17 Normal [facility] HEMATOLOGY Basophils # 0.1 0.0 - 0.2 11/17 Normal [facility] HEMATOLOGY Monocytes # 0.8 0.0 - 0.8 11/17 Normal [facility] HEMATOLOGY Microcyte 1+ None Seen 11/17 Psychiatric *ABN* /2012 Medical (11/17/2012 04:33:00) [place] HEMATOLOGY INR 1.09 0.85 - 11/17 Normal <sup>8</sup>I [facility] 1.17 nterpretive Medical Data: Center RECOMMENDED RANGES FOR PROTIME INR:
2.0-3.0 for most medical and surgical thromboemboli c states.
2.5-3.5 for artificial heart valves and recurrent embolism.<br/ >
INR SHOULD BE USED ONLY FOR PATIENTS ON STABLE ANTICOAGULANT THERAPY. HEMATOLOGY PT 14.3 12.0 - 11/17 Normal [facility] 14.7 [facility] HEMATOLOGY PTT 31.8 22.9 - 11/17 Normal <sup>9</sup>I [facility] 35.8 /2012 nterpretive Medical Data: [facility] Center Therapeutic Range: 57 - 92 Seconds HEMATOLOGY Platelet 177 133 - 450 11/17 Normal [facility] HEMATOLOGY MPV 9.5 7.4 - 10.4 11/17 Normal Medical Center HEMATOLOGY MCH 24.5 27.0 - 03 LOW [place] 31.0 /2012 Medical Center HEMATOLOGY RDW 18.9 11.5 - 03 HI [place] 14.5 /2012 Medical Center HEMATOLOGY MCHC 32.3 32.0 - 11/17 Normal [place] 36.0 /2012 Medical Center HEMATOLOGY MCV 75.9 81.0 - 03 LOW [place] 99.0 /2012 Medical Center HEMATOLOGY RBC 3.67 4.20 - 11/17 LOW [place] 5.40 /2012 Medical Center HEMATOLOGY WBC 8.4 3.7 - 10.4 11/17 Normal [facility] Center HEMATOLOGY Hct 27.9 36.0 - 03 LOW [place] 48.0 /2012 Medical Center HEMATOLOGY Hgb 9.0 12.0 - 11/17 LOW [place] 16.0 /2012 [facility] Center CHEMISTRY Troponin-T <0.010 0.000 - 11/17 Normal [facility] 0.100 [facility] Center CHEMISTRY Troponin-I <0.02 0.00 - 11/17 Normal [facility] 0.40 [facility] Center CHEMISTRY Total CK 76 12 - 191 11/17 Normal [facility] CHEMISTRY CK MB Index 0.8 0.0 - 2.5 11/17 Normal [facility] Center CHEMISTRY CK MB 0.6 0.5 - 3.6 11/17 Normal [facility] Center BEDSIDE Gluc POC 305 70 - 99 11/17 HI <sup>3</sup>I [facility] GLUCOSE [facility] /2012 nterpretive Medical TESTING Data: Center Upper Reportable Limit: 200 mg/dL. BEDSIDE Comment1 Notify 11/17 NA [facility] GLUCOSE RN/MD /2012 Medical TESTING Center CHEMISTRY Magnesium Lvl 1.4 1.8 - 2.4 11/16 LOW [facility] Center CHEMISTRY Total CK 27 12 - 191 11/16 Normal [facility] Center CHEMISTRY Troponin-T <0.010 0.000 - 11/16 Normal [place] 0.100 Medical Center CHEMISTRY Troponin-I <0.02 0.00 - 11/16 Normal [place] 0.40 Medical Center CHEMISTRY B/C Ratio 6 6 - 25 11/16 Normal Medical Center CHEMISTRY A/G Ratio 1.0 0.7 - 1.6 11/16 Normal [facility] CHEMISTRY AGAP 18.6 10.0 - 11/16 Normal [facility] 20.0 [facility] CHEMISTRY Globulin 3.5 2.0 - 4.0 11/16 Normal [facility] CHEMISTRY eGFR 67 11/16 NA <sup>5</sup>R [...] Lvl 3.4 3.5 - 5.0 11/16 LOW [facility] CHEMISTRY Alk Phos 88 39 - 136 11/16 Normal [facility] CHEMISTRY Glucose Lvl 256 70 - 99 11/16 HI <sup>7</sup>I nterpretive Medical Data: Adult Center reference range values reflect the clinical guidelines
of the [place] [employer]. CHEMISTRY BUN 6 7 - 22 11/16 LOW [facility] CHEMISTRY Sodium Lvl 136 135 - 145 11/16 Normal [facility] CHEMISTRY Chloride Lvl 99 95 - 109 11/16 Normal [facility] CHEMISTRY Creatinine 1.0 0.5 - 1.4 11/16 Normal [facility] CHEMISTRY Potassium Lvl 3.6 3.5 - 5.1 11/16 Normal [facility] CHEMISTRY CO2 22 24 - 32 11/16 [facility] CHEMISTRY Calcium Lvl 8.8 8.5 - 10.5 11/16 Normal [facility] CHEMISTRY Bili Total 0.6 0.2 - 1.3 11/16 Normal [facility] CHEMISTRY Total Protein 6.9 6.4 - 8.4 11/16 Normal [facility] CHEMISTRY AST 52 0 - 37 03 HI [facility] CHEMISTRY ALT 52 0 - 65 11/16 Normal [facility] CHEMISTRY Phosphorus 1.6 2.5 - 4.5 11/16 LOW [facility] HEMATOLOGY Lymphocytes 16.8 20.0 - 11/16 LOW [place] 40.0 [facility] HEMATOLOGY Segs 72.3 45.0 - 11/16 Normal [facility] 75.0 [facility] HEMATOLOGY Large Plt Slight None Seen 11/16 [facility] Medical (11/16/2012 13:17:00) Center HEMATOLOGY Elliptocyte Slight None Seen 11/16 Psychiatric * Medical (11/16/2012 13:17:00) Center HEMATOLOGY Polychrom Slight None Seen 11/16 Normal [facility] (11/16/2012 13:17:00) [facility] HEMATOLOGY Microcyte 1+ None Seen 11/16 [facility] Medical (11/16/2012 13:17:00) Center HEMATOLOGY Basophils # 0.1 0.0 - 0.2 11/16 Normal [facility] HEMATOLOGY Hypochrom Slight None Seen 11/16 Normal [facility] (11/16/2012 13:17:00) [facility] Center HEMATOLOGY Anisocyte 1+ None Seen 11/16 [facility] Medical (11/16/2012 13:17:00) Center HEMATOLOGY Schistocyte Occasional 11/16 NA [facility] HEMATOLOGY Monocytes 8.6 2.0 - 12.0 11/16 Normal [facility] HEMATOLOGY Eosinophils 1.5 0.0 - 4.0 11/16 Normal [facility] HEMATOLOGY Monocytes # 1.1 0.0 - 0.8 11/16 HI [facility] HEMATOLOGY Segs-Bands # 9.7 1.5 - 8.1 11/16 HI [facility] HEMATOLOGY Eosinophils # 0.2 0.0 - 0.5 11/16 Normal [facility] HEMATOLOGY Lymphocytes # 2.2 1.0 - 5.5 11/16 Normal [facility] HEMATOLOGY Basophils 0.8 0.0 - 1.0 11/16 Normal [facility] HEMATOLOGY Hgb 10.8 12.0 - 03 LOW [place] 16.0 /2012 [facility] HEMATOLOGY RBC 4.29 4.20 - 03 Normal [place] 5.40 /2012 [facility] Center HEMATOLOGY WBC 13.3 3.7 - 10.4 11/16 HI [facility] HEMATOLOGY RDW 18.0 11.5 - 11/16 HI [place] 14.5 /2012 Medical Center HEMATOLOGY Hct 32.4 36.0 - 03 LOW [place] 48.0 /2012 [facility] Center HEMATOLOGY MCHC 33.3 32.0 - 03 Normal [place] 36.0 /2012 [facility] HEMATOLOGY MCV 75.4 81.0 - 03 LOW [place] 99.0 /2012 [facility] HEMATOLOGY MCH 25.1 27.0 - 11/16 [facility] [place] 31.0 /2012 [facility] Center HEMATOLOGY Platelet 230 133 - 450 11/16 Normal [facility] HEMATOLOGY MPV 9.9 7.4 - 10.4 11/16 Normal [facility] BEDSIDE Comment1 Notify 11/14 NA [facility] GLUCOSE RN/ /2012 Medical TESTING Center BEDSIDE Gluc POC 266 70 - 99 11/14 HI <sup>2</sup>I [facility] GLUCOSE [facility] nterpretive Medical TESTING Data: [place] Upper Reportable Limit: 200 mg/dL. BEDSIDE Comment1 Notify 11/14 NA [facility] GLUCOSE RN/ [facility] TESTING Center BEDSIDE Gluc POC 140 70 - 99 11/14 HI <sup>3</sup>I [facility] GLUCOSE [facility] nterpretive Medical TESTING Data: [place] Reportable Limit: 200 mg/dL. BEDSIDE Comment1 Notify 11/14 NA [facility] GLUCOSE RN/ /2012 Medical TESTING Center BEDSIDE Gluc POC 201 70 - 99 11/14 HI <sup>4</sup>I [facility] GLUCOSE [facility] nterpretive Medical TESTING Data: [place] Upper Reportable Limit: 200 mg/dL. CHEMISTRY A/G Ratio 0.9 0.7 - 1.6 11/14 Normal [facility] CHEMISTRY AST 41 0 - 37 11/14 HI [facility] Center CHEMISTRY eGFR 104 11/14 NA <sup>6</sup>R [...] Albumin Lvl 2.9 3.5 - 5.0 11/14 [facility] CHEMISTRY Alk Phos 84 39 - 136 11/14 Normal [facility]2012 [facility] CHEMISTRY BUN 3 7 - 22 11/14 [facility]2012 [facility] CHEMISTRY Creatinine 0.7 0.5 - 1.4 11/14 Normal [facility] /2012 [facility] CHEMISTRY Sodium Lvl 136 135 - 145 11/14 [facility]2012 [facility] CHEMISTRY Total Protein 6.3 6.4 - 8.4 11/14 [facility]2012 [facility] CHEMISTRY ALT 51 0 - 65 11/14 [facility]2012 [facility] CHEMISTRY Potassium Lvl 3.7 3.5 - 5.1 11/14 [facility]2012 [facility] CHEMISTRY Chloride Lvl 101 95 - 109 11/14 [facility]2012 [facility] CHEMISTRY Glucose Lvl 210 70 - 99 11/14 HI <sup>9</sup>I nterpretive Medical Data: Adult Center reference range values reflect the clinical guidelines
of the [place] [employer]. CHEMISTRY AGAP 15.7 10.0 - 11/14 Normal [facility] 20.0 [facility] CHEMISTRY B/C Ratio 4 6 - 25 11/14 [facility]2012 [facility] CHEMISTRY Globulin 3.4 2.0 - 4.0 11/14 [facility] CHEMISTRY CO2 23 24 - 32 03 LOW [facility] CHEMISTRY Bili Total 0.4 0.2 - 1.3 11/14 Normal [facility] CHEMISTRY Calcium Lvl 8.5 8.5 - 10.5 11/14 Normal [facility] CHEMISTRY Phosphorus 3.6 2.5 - 4.5 11/14 Normal [facility] CHEMISTRY Magnesium Lvl 1.5 1.8 - 2.4 11/14 LOW [facility] CHEMISTRY Ca Norm mgdL 3.52 4.65 - 11/14 LOW [place] 5. [facility] CHEMISTRY Ca Ion mgdL 3.32 4.65 - 11/14 CRIT [facility] . [facility] CHEMISTRY Ca Ion 0.83 1.16 - 11/14 CRIT <sup>15</sup> [facility] 10.05 Result Medical Comment: Center Critical Result(s) called to Arlin Rose at 11/14/2012 00:23:56 CDT_ by_tvs. Read back OK. CHEMISTRY Ca Norm 0.88 1.16 - 11/14 CRIT [facility] 1. [facility] HEMATOLOGY Platelet 221 133 - 450 11/14 Normal [facility] HEMATOLOGY RDW 19.0 11.5 - 03 [facility] [place] 14.5 Medical Center HEMATOLOGY MCHC 32.4 32.0 - 11/14 [facility] [place] 36.0 /2012 [facility] HEMATOLOGY MCV 75.5 81.0 - 11/14 [facility] [place] 99.0 /2012 Medical Center HEMATOLOGY Hct 35.5 36.0 - 11/14 [facility] [place] 48.0 /2012 Medical Center HEMATOLOGY Hgb 11.5 12.0 - 03 [facility] [place] 16.0 /2012 Medical Center HEMATOLOGY MCH 24.5 27.0 - 03 [facility] [place] 31.0 /2012 [facility] HEMATOLOGY MPV 9.1 7.4 - 10.4 11/14 Normal [facility] HEMATOLOGY RBC 4.70 4.20 - 11/14 Normal [place] 5.40 /2012 Medical Center HEMATOLOGY WBC 8.6 3.7 - 10.4 11/14 Normal [facility] HEMATOLOGY Segs 53.3 45.0 - 03 Normal [place] 75.0 /2012 [facility] HEMATOLOGY Microcyte 1+ None Seen 11/14 ABN [place] *ABN* /2012 Medical (11/13/2012 23:45:00) [place] HEMATOLOGY Basophils # 0.1 0.0 - 0.2 11/14 Normal [facility] HEMATOLOGY Eosinophils # 0.2 0.0 - 0.5 11/14 Normal [facility] HEMATOLOGY Monocytes # 0.9 0.0 - 0.8 11/14 HI [facility] HEMATOLOGY Lymphocytes # 2.9 1.0 - 5.5 11/14 Normal [facility] HEMATOLOGY Monocytes 10.3 2.0 - 12.0 11/14 Normal [facility] HEMATOLOGY Lymphocytes 33.6 20.0 - 03 Normal [place] 40.0 /2012 [facility] HEMATOLOGY Segs-Bands # 4.6 1.5 - 8.1 11/14 Normal [facility] HEMATOLOGY Basophils 0.7 0.0 - 1.0 11/14 Normal [facility] HEMATOLOGY Eosinophils 2.1 0.0 - 4.0 11/14 Normal [facility] CHEMISTRY Lipase Lvl 43 73 - 393 11/13 LOW [facility] CHEMISTRY Amylase Lvl 14 25 - 115 11/13 LOW [facility] CHEMISTRY A/G Ratio 0.8 0.7 - 1.6 11/13 Normal [facility] CHEMISTRY AST 56 0 - 37 11/13 [facility] CHEMISTRY Alk Phos 67 39 - 136 11/13 Normal [facility] CHEMISTRY Globulin 2.9 2.0 - 4.0 11/13 Normal [facility] CHEMISTRY Total Protein 5.3 6.4 - 8.4 11/13 LOW [facility] CHEMISTRY Albumin Lvl 2.4 3.5 - 5.0 11/13 LOW [facility] CHEMISTRY ALT 41 0 - 65 11/13 Normal [facility] CHEMISTRY Bili Indirect 0.3 0.0 - 1.0 11/13 Normal [facility] CHEMISTRY Bili Direct 0.1 0.0 - 0.3 11/13 Normal [facility] CHEMISTRY Bili Total 0.4 0.2 - 1.3 11/13 Normal [facility] CHEMISTRY eGFR 137 11/13 NA <sup>7</sup>R [...] CHEMISTRY AGAP 17.3 10.0 - 11/13 Normal [facility] 20.0 [facility] CHEMISTRY Calcium Lvl 6.7 8.5 - 10.5 11/13 CRIT <sup>13</sup> Result Medical Comment: Center Critical Result(s) called to _hansel gustafson at _11/13/2012 06:59:47 CDT bylg. Read back OK. CHEMISTRY CO2 17 24 - 32 11/13 LOW [facility] CHEMISTRY Chloride Lvl 111 95 - 109 11/13 HI [facility] CHEMISTRY Potassium Lvl 3.3 3.5 - 5.1 11/13 LOW <sup>5</sup>R esult Medical Comment: Center Specimen Slightly Hemolyzed. CHEMISTRY Sodium Lvl 142 135 - 145 11/13 Normal [facility] CHEMISTRY Creatinine 0.3 0.5 - 1.4 11/13 LOW [facility] /2012 [facility] CHEMISTRY BUN 3 7 - 22 11/13 LOW [facility] CHEMISTRY Glucose Lvl 104 70 - 99 11/13 [place] <sup>10</sup> Interpretive Medical Data: Adult Center reference range values reflect the clinical guidelines
of the [place] [employer]. CHEMISTRY Magnesium Lvl 1.3 1.8 - 2.4 11/13 [facility] CHEMISTRY Phosphorus 2.8 2.5 - 4.5 03 Normal [facility] CHEMISTRY Ca Ion 1.01 1.16 - 11/13 [facility] [place] 1.30 [facility] CHEMISTRY Ca Norm 1.07 1.16 - 11/13 [facility] [place] 1.30 [facility] CHEMISTRY Ca Norm mgdL 4.28 4.65 - 11/13 [facility] [place] 5. [facility] CHEMISTRY Ca Ion mgdL 4.04 4.65 - 11/13 [facility] [place] 5.20 Medical [place] HEMATOLOGY MCV 78.6 81.0 - 03 [facility] [place] 99.0 /2012 [facility] HEMATOLOGY MPV 9.1 7.4 - 10.4 11/13 Normal [facility] HEMATOLOGY MCHC 31.1 32.0 - 03 [facility] [place] 36.0 /2012 [facility] HEMATOLOGY MCH 24.4 27.0 - 03 [facility] [place] 31.0 [facility] HEMATOLOGY Hct 29.4 36.0 - 11/13 [facility] [place] 48.0 /2012 [facility] HEMATOLOGY RDW 19.1 11.5 - 03 HI [place] 14.5 /2012 Medical [place] HEMATOLOGY Platelet 192 133 - 450 11/13 Normal [facility] HEMATOLOGY Hgb 9.1 12.0 - 03 [facility] [place] 16.0 /2012 [facility] HEMATOLOGY RBC 3.74 4.20 - 11/13 [facility] [place] 5.40 /2012 Medical [place] HEMATOLOGY WBC 6.8 3.7 - 10.4 11/13 Normal [facility] HEMATOLOGY Plt Morph Normal 11/13 Normal [facility] (11/13/2012 05:00:00) Medical Center HEMATOLOGY Atypical 0.0 <=0.0 11/13 Normal [place] [facility] /2012 [facility] HEMATOLOGY RBC Morph Normal 11/13 Normal [facility] (11/13/2012 05:00:00) [facility] Center HEMATOLOGY Eosinophils 2.0 0.0 - 4.0 11/13 [facility] HEMATOLOGY Bands 0.0 0.0 - 11.0 11/13 Normal [facility] HEMATOLOGY Segs 51.0 45.0 - 11/13 Normal [place] 75.0 [facility] HEMATOLOGY Eosinophils # 0.1 0.0 - 0.5 11/13 Normal [facility] HEMATOLOGY Segs-Bands # 3.5 1.5 - 8.1 11/13 Normal [facility] HEMATOLOGY Monocytes 5.0 2.0 - 12.0 11/13 Normal [facility] HEMATOLOGY Lymphocytes 42.0 20.0 - 11/13 HI [facility] 40.0 /2012 [facility] HEMATOLOGY Monocytes # 0.3 0.0 - 0.8 11/13 Normal [facility] HEMATOLOGY Lymphocytes # 2.9 1.0 - 5.5 11/13 Normal [facility] INFECTIOUS C difficile Negative 1 Negative 11/13 Normal <sup>1</sup>I [facility] DISEASES DNA (11/12/2012 21:54:26) /2012 nterpretive Medical Data: [place] eyefactive illumigene Clostridium difficile assay utilizes loop-mediated isothermal [...] CK 25 12 - 191 11/12 Normal [facility] CHEMISTRY Troponin-I <0.02 0.00 - 11/12 Normal [facility] 0.40 /2012 [facility] CHEMISTRY eGFR 88 11/12 NA <sup>8</sup>R [facility] esult Medical Comment: The Center eGFR [...] 10.0 - 03 Normal [place] 20.0 /2012 [facility] CHEMISTRY Calcium Lvl 8.5 8.5 - 10.5 11/12 [facility] CHEMISTRY CO2 25 24 - 32 11/12 Normal [facility] CHEMISTRY Potassium Lvl 3.7 3.5 - 5.1 11/12 Normal [facility] CHEMISTRY Sodium Lvl 138 135 - 145 11/12 Normal [facility] CHEMISTRY Chloride Lvl 103 95 - 109 11/12 Normal [facility] CHEMISTRY Creatinine 0.8 0.5 - 1.4 11/12 Normal [facility] Lvl /2012 [facility] CHEMISTRY BUN 5 7 - 22 11/12 LOW [facility] CHEMISTRY Glucose Lvl 40 70 - 99 11/12 CRIT <sup>11</sup> Result Medical Comment: Center rechecked Critical Result(s) called to _Leo Rose at 11/12/2012 02:56:37 [employer]OP[employer] by_mgm. Read back OK.
<sup> 12</sup>Inter pretive Data: Adult reference range values reflect the clinical guidelines
of the [place] [employer]. CHEMISTRY Ca Norm mgdL 4.20 4.65 - 03 LOW [place] 5. [facility] CHEMISTRY Ca Norm 1.05 1.16 - 11/12 [facility] [place] 1.30 [facility] CHEMISTRY Ca Ion mgdL 4.00 4.65 - 0309 LOW [place] 5.20 [facility] CHEMISTRY Ca Ion 1.00 1.16 - 0309 LOW [place] 1.30 [facility] Center CHEMISTRY Magnesium Lvl 1.9 1.8 - 2.4 11/12 Normal [facility] Center CHEMISTRY Phosphorus 3.2 2.5 - 4.5 11/12 Normal [facility] HEMATOLOGY MCHC 32.0 32.0 - 03 Normal [place] 36.0 /2013 [facility] HEMATOLOGY MCH 24.1 27.0 - 0309 LOW [place] 31.0 /2012 [facility] Center HEMATOLOGY MCV 75.3 81.0 - 0309 LOW [facility] [place] 99.0 /2013 [facility] HEMATOLOGY WBC 9.2 3.7 - 10.4 03 Normal [facility] HEMATOLOGY Platelet 233 133 - 450 03 Normal [facility] HEMATOLOGY MPV 9.1 7.4 - 10.4 11/12 Normal [facility] HEMATOLOGY RDW 19.0 11.5 - 03/ HI [place] 14.5 /2012 [facility] [place] HEMATOLOGY RBC 4.19 4.20 - 03 [facility] [place] 5.40 /2012 [facility] HEMATOLOGY Hgb 10.1 12.0 - 03 [facility] 16.0 /2012 [facility] HEMATOLOGY Hct 31.6 36.0 - 03 [facility] 48.0 /2012 [facility] HEMATOLOGY Hypochrom Slight None Seen 11/12 [facility] (11/12/2012 00:19:00) [facility] HEMATOLOGY Large Plt Slight None Seen 11/12 [facility] *ABN* /2012 Medical (11/12/2012 00:19:00) [place] HEMATOLOGY Atypical 0.0 <=0.0 11/12 Normal [facility] Lymphs [facility] HEMATOLOGY Basophils 1.0 0.0 - 1.0 11/12 Normal [facility] HEMATOLOGY Lymphocytes 39.0 20.0 - 03 [facility] 40.0 [facility] HEMATOLOGY Bands 0.0 0.0 - 11.0 11/12 Normal [facility] HEMATOLOGY Eosinophils 2.0 0.0 - 4.0 11/12 Normal [facility] HEMATOLOGY Monocytes 6.0 2.0 - 12.0 11/12 Normal [facility] HEMATOLOGY Segs 52.0 45.0 - 03 [facility] 75.0 /2012 [facility] HEMATOLOGY Basophils # 0.1 0.0 - 0.2 11/12 Normal [facility] HEMATOLOGY Monocytes # 0.6 0.0 - 0.8 03 Normal [facility] HEMATOLOGY Lymphocytes # 3.6 1.0 - 5.5 11/12 Normal [facility] HEMATOLOGY Segs-Bands # 4.8 1.5 - 8.1 11/12 Normal [facility] HEMATOLOGY Eosinophils # 0.2 0.0 - 0.5 11/12 Normal [facility] HEMATOLOGY Microcyte 1+ None Seen 11/11 [facility] Medical (11/11/2012 03:41:00) Center HEMATOLOGY Basophils # 0.1 0.0 - 0.2 11/11 Normal [facility] HEMATOLOGY Basophils 0.7 0.0 - 1.0 11/11 Normal [facility] HEMATOLOGY Microcyte 1+ None Seen 11/09 [facility] Medical (11/09/2012 05:12:00) Center URINALYSIS UA pH 5.0 5.0 - 8.0 11/08 Normal [facility] URINALYSIS UA Protein 20 mg/dL Negative 11/08 [facility] Medical (11/07/2012 20:54:00) Center URINALYSIS UA Turbidity Slight Clear 11/08 [facility] Medical (11/07/2012 20:54:00) Center URINALYSIS UA Spec Grav 1.010 <=1.030 11/08 Normal [facility] URINALYSIS UA Color Yellow Yellow 11/08 NA [facility] [place] [facility] (11/07/2012 20:54:00) Center URINALYSIS UA Bacteria Moderate /HPF None Seen 11/08 [facility] Medical (11/07/2012 20:54:00) Center URINALYSIS UA Mucus Few /LPF None Seen 11/08 [facility] Medical (11/07/2012 20:54:00) Center URINALYSIS UA WBC >182 0 - 5 11/08 [facility] URINALYSIS UA RBC 4 0 - 2 11/08 [facility] Center URINALYSIS UA Sq Epi Moderate /LPF Few 11/08 [facility] Medical (11/07/2012 20:54:00) Center URINALYSIS UA Leuk Est Large Negative 11/08 [facility] Medical (11/07/2012 20:54:00) Center URINALYSIS UA Blood Trace Negative 11/08 [facility] Medical (11/07/2012 20:54:00) Center URINALYSIS UA Nitrite Negative Negative 11/08 Normal [facility] (11/07/2012 20:54:00) [facility] Center URINALYSIS UA Ketones 40 mg/dL Negative 11/08 [facility]iatric *ABN* Medical (11/07/2012 20:54:00) Center URINALYSIS UA Bili Negative Negative [facility]:54[facility]00[facility] Center URINALYSIS Micro? Performed 11/08 [facility] (11/07/2012 20:54:00) Center URINALYSIS UA 0.1 - 1.0 11/08 [facility] Urobilinogen /2012 [facility] Center URINALYSIS UA Glucose >=1000mg/d 11/08 [facility] L [facility] Center URINALYSIS UA Hyal Cast 37 0 - 2 11/08 [facility] URINALYSIS UA Ketones 40 mg/dL Negative 11/07 [facility] Medical (11/07/2012 06:24:57) Center CHEMISTRY Hgb A1C [...] to lower CHEMISTRY Ketone 2.20 <=0.27 11/06 [facility] Center CHEMISTRY U Osmolality 207 300 - 800 11/06 LOW [facility] CHEMISTRY POC A %FIO2 21.0 18.0 - 11/06 Normal [facility] 100. [facility] Center CHEMISTRY POC A LA 0.9 0.5 - 2.2 11/06 Normal [facility] CHEMISTRY POC A Glu 281 70 - 99 11/06 [facility] CHEMISTRY POC A Temp 37.0 11/06 NA [facility] CHEMISTRY POC A Source ART 11/06 NA [facility] CHEMISTRY POC A pH 7.45 7.35 - 11/06 Normal [place] 7.45 /2012 [facility] [place] CHEMISTRY POC A HCO3 24 22 - 26 03 Normal [facility] [place] CHEMISTRY POC A PCO2 35 35 - 45 03 Normal [facility] CHEMISTRY POC A PO2 85 80 - 100 11/06 Normal [facility] CHEMISTRY POC A BE 0 -2-2 - 2 11/06 Normal [facility] CHEMISTRY POC A O2 Sat 97.0 95.0 - 11/06 Normal [place] 100.0 Medical Center CHEMISTRY POC A Na 123 135 - 145 03 LOW [facility] CHEMISTRY POC A Hct 31.0 36.0 - 11/06 LOW [place] 48.0 [facility] CHEMISTRY POC A Ca Ion 1.11 1.16 - 11/06 LOW [facility] 1.30 [facility] CHEMISTRY POC A K 3.7 3.5 - 5.1 11/06 Normal [facility] CHEMISTRY POC A BE -4 -2-2 - 2 11/06 LOW [facility] CHEMISTRY POC A HCO3 20 22 - 26 11/06 LOW [facility] CHEMISTRY POC A Source ART 11/06 NA [facility] CHEMISTRY POC A Temp 37.0 11/06 NA [facility] CHEMISTRY POC A pH 7.42 7.35 - 11/06 Normal [facility] 7.45 [facility] CHEMISTRY POC A PO2 81 80 - 100 11/06 Normal [facility] CHEMISTRY POC A O2 Sat 96.0 95.0 - 11/06 Normal 100.0 [facility] CHEMISTRY POC A PCO2 31 35 - 45 11/06 LOW [facility] CHEMISTRY POC A %FIO2 21.0 18.0 - 11/06 Normal [facility] 100.0 /2012 [facility] Microbiolog Culture: 11/06 [facility] y Urine /2012 [facility] CHEMISTRY Troponin-I <0.02 0.00 - 03 Normal [facility] 0.40 /2012 [facility] CHEMISTRY Troponin-T <0.010 0.000 - 03 Normal [facility] 0.100 [facility] CHEMISTRY Total CK 48 12 - 191 11/06 Normal [facility] URINALYSIS UA 0.1 - 1.0 11/06 NA [facility] Urobilinogen /2012 [facility] URINALYSIS UA Leuk Est Large Negative 11/06 ABN [facility] * Medical (11/06/2012 03:15:40) Center URINALYSIS UA Sq Epi Moderate /LPF Few 11/06 [facility] Medical (11/06/2012 03:15:40) Center URINALYSIS UA Mucus Few /LPF None Seen 11/06 NA [facility] Medical (11/06/2012 03:15:40) Center URINALYSIS UA Nitrite Negative Negative 11/06 Normal [facility] (11/06/2012 03:15:40) Medical Center URINALYSIS UA Bacteria Occasional /HPF None Seen 11/06 [facility]2012 03:15:40[facility] Center URINALYSIS UA WBC 67 0 - 5 11/06 [facility] Medical Center URINALYSIS UA Blood Negative Negative 11/06 Normal [facility] (11/06/2012 03:15:40) Medical Center URINALYSIS UA Bili Negative Negative 11/06 [facility] Medical (11/06/2012 03:15:40) Center URINALYSIS UA Ketones 60 mg/dL Negative 11/06 [facility] Medical (11/06/2012 03:15:40) Center URINALYSIS UA pH 5.0 5.0 - 8.0 11/06 [facility] URINALYSIS UA Glucose >=1000 mg/dL Negative 11/06 [facility] Medical (11/06/2012 03:15:40) Center URINALYSIS UA Spec Grav 1.014 <=1.030 11/06 [facility] URINALYSIS UA Protein Negative mg/dL Negative 11/06 Normal [facility] (11/06/2012 03:15:40) Medical Center URINALYSIS UA Turbidity Slight Clear 11/06 [facility] Medical (11/06/2012 03:15:40) Center URINALYSIS UA Color Yellow Yellow 11/06 NA [facility] Medical (11/06/2012 03:15:40) Center CHEMISTRY Troponin-I 0.02 0.00 - 11/06 Normal [facility] 0.40 Medical Center CHEMISTRY Total CK 30 12 - 191 11/06 [facility] CHEMISTRY Troponin-T <0.010 0.000 - 11/06 Normal [facility] 0.100 /2012 [facility] [place] CHEMISTRY Ketone 3.00 <=0.27 11/06 HI [facility] Medical [place] CHEMISTRY Lipase Lvl 89 73 - 393 11/06 Normal [facility] CHEMISTRY Globulin 4.3 2.0 - 4.0 11/06 [facility] CHEMISTRY A/G Ratio 0.9 0.7 - 1.6 11/06 Normal [facility] CHEMISTRY B/C Ratio 7 6 - 25 11/06 Normal [facility] CHEMISTRY Albumin Lvl 3.7 3.5 - 5.0 11/06 Normal [facility] CHEMISTRY Total Protein 8.0 6.4 - 8.4 11/06 Normal [facility] CHEMISTRY ALT 62 0 - 65 11/06 Normal [facility] CHEMISTRY Alk Phos 119 39 - 136 11/06 Normal [facility] CHEMISTRY Bili Total 0.5 0.2 - 1.3 11/06 Normal [facility] CHEMISTRY AST 44 0 - 37 11/06 [facility] HEMATOLOGY Polychrom Slight None Seen 11/06 Normal [facility] (11/05/2012 20:40:00) Medical Center HEMATOLOGY Hypochrom Slight None Seen 11/06 Normal [facility] (11/05/2012 20:40:00) [facility] HEMATOLOGY Bands 1.0 0.0 - 11.0 11/06 Normal [facility] HEMATOLOGY Anisocyte 1+ None Seen 11/06 Psychiatric *ABN* Medical (11/05/2012 20:40:00) Center HEMATOLOGY Atypical 0.0 <=0.0 11/06 Normal [facility] Lymphs [facility] HEMATOLOGY Macrocyte 1+ None Seen 11/06 Psychiatric *ABN* Medical (11/05/2012 20:40:00) Center HEMATOLOGY Plt Morph Normal 11/06 Normal [facility] (11/05/2012 20:40:00) [facility] Center HEMATOLOGY INR 0.98 0.85 - 11/06 Normal <sup>16</sup> [facility] 1. Interpretive Medical Data: Center RECOMMENDED RANGES FOR PROTIME INR:
2.0-3.0 for most medical and surgical thromboemboli c states.
2.5-3.5 for artificial heart valves and recurrent embolism.<br/ >
INR SHOULD BE USED ONLY FOR PATIENTS ON STABLE ANTICOAGULANT THERAPY. HEMATOLOGY PT 13.2 12.0 - 03 Normal [facility] 14.7 /2012 Medical Center HEMATOLOGY PTT 26.4 22.9 - 03 Normal <sup>17</sup> [facility] 35.8 /2012 Interpretive Medical Data: Heparin Center Therapeutic Range: 57 - 92 Seconds BEDSIDE Gluc POC >400 70 - 99 11/01 CRIT <sup>3</sup>I [facility] nterpretive Medical TESTING Data: Center Upper Reportable Limit: 200 mg/dL. BEDSIDE Comment1 Notify 11/01 NA [facility] GLUCOSE MARTÍNEZ/ /2012 Medical TESTING Center BEDSIDE Gluc POC 237 70 - 99 10/31 HI <sup>4</sup>I [facility] nterpretive Medical TESTING Data: Center Upper Reportable Limit: 200 mg/dL. BEDSIDE Gluc POC 357 70 - 99 10/31 HI <sup>5</sup>I [facility] nterpretive Medical TESTING Data: Center Upper Reportable Limit: 200 mg/dL. BEDSIDE Comment1 Notify 10/31 NA [facility] GLUCOSE RN/ /2012 Medical TESTING Center CHEMISTRY Phosphorus 4.2 2.5 - 4.5 10/31 Normal [facility] CHEMISTRY Ca Norm mgdL 4.64 4.65 - 10/31 [facility] 5.20 [facility] CHEMISTRY Ca Ion mgdL 4.44 4.65 - 10/31 [facility] 5.20 [facility] CHEMISTRY Ca Norm 1.16 1.16 - 10/31 Normal [facility] 1.30 [facility] Center CHEMISTRY Ca Ion 1.11 1.16 - 10/31 LOW [facility] 1.30 [facility] Center CHEMISTRY AGAP 16.9 10.0 - 10/31 Normal [facility] 20.0 [facility] Center CHEMISTRY eGFR 67 10/31 NA <sup>7</sup>R esult [...] Creatinine 1.0 0.5 - 1.4 10/31 Normal [facility] CHEMISTRY Sodium Lvl 133 135 - 145 10/31 [facility] CHEMISTRY Calcium Lvl 8.3 8.5 - 10.5 10/31 [facility] CHEMISTRY Potassium Lvl 3.9 3.5 - 5.1 10/31 Normal [facility] CHEMISTRY Chloride Lvl 94 95 - 109 10/31 [facility] CHEMISTRY CO2 26 24 - 32 10/31 [facility] CHEMISTRY BUN 8 7 - 22 10/31 [facility] CHEMISTRY Glucose Lvl 75 70 - 99 10/31 Normal <sup>10</sup> Interpretive Medical Data: Adult Center reference range values reflect the clinical guidelines
of the [place] [employer]. CHEMISTRY Magnesium Lvl 1.9 1.8 - 2.4 10/31 [facility] HEMATOLOGY MPV 9.4 7.4 - 10.4 10/31 [facility] HEMATOLOGY Hgb 9.7 12.0 - 10/31 [facility] [place] 16.0 [facility] HEMATOLOGY RBC 4.06 4.20 - 10/31 [facility] [place] 5.40 [facility] HEMATOLOGY MCV 74.3 81.0 - 10/31 [facility] 99.0 [facility] HEMATOLOGY Hct 30.2 36.0 - 10/31 [facility] [place] 48.0 [facility] HEMATOLOGY MCHC 32.2 32.0 - 10/31 [facility] [place] 36.0 [facility] HEMATOLOGY MCH 23.9 27.0 - 10/31 LOW [place] 31.0 /2012 [facility] HEMATOLOGY Platelet 199 133 - 450 10/31 Normal [facility] HEMATOLOGY RDW 17.5 11.5 - 10/31 HI [facility] 14.5 [facility] HEMATOLOGY WBC 9.4 3.7 - 10.4 10/31 Normal [facility] HEMATOLOGY Lymphocytes # 2.7 1.0 - 5.5 10/31 Normal [facility] HEMATOLOGY Basophils 0.6 0.0 - 1.0 10/31 Normal [facility] HEMATOLOGY Segs-Bands # 5.2 1.5 - 8.1 10/31 Normal [facility] HEMATOLOGY Microcyte 1+ None Seen 10/31 ABN *ABN* /2012 [facility] (10/31/2012 04:00:00) [place] HEMATOLOGY Monocytes # 1.1 0.0 - 0.8 10/31 [facility] HEMATOLOGY Eosinophils # 0.3 0.0 - 0.5 10/31 Normal [facility] HEMATOLOGY Basophils # 0.1 0.0 - 0.2 10/31 Normal [facility] HEMATOLOGY Segs 55.2 45.0 - 10/31 Normal [facility] 75.0 [facility] HEMATOLOGY Monocytes 11.8 2.0 - 12.0 10/31 Normal [facility] HEMATOLOGY Lymphocytes 28.9 20.0 - 10/31 Normal [facility] 40.0 [facility] HEMATOLOGY Eosinophils 3.5 0.0 - 4.0 10/31 Normal [facility] BEDSIDE Comment1 Notify 10/31 NA [facility] GLUCOSE RN/ Medical TESTING Center CHEMISTRY Ca Norm mgdL 4.92 4.65 - 10/30 Normal [facility] 5. [facility] CHEMISTRY Ca Ion mgdL 4.76 4.65 - 10/30 Normal [facility] 5 [facility] CHEMISTRY Ca Norm 1.23 1.16 - 10/30 Normal [facility] 10.05 [facility] CHEMISTRY Ca Ion 1.19 1.16 - 10/30 Normal [facility] 10.05 [facility] CHEMISTRY Phosphorus 3.8 2.5 - 4.5 10/30 Normal [facility] CHEMISTRY Magnesium Lvl 1.9 1.8 - 2.4 10/30 Normal [facility] CHEMISTRY eGFR 88 10/30 NA <sup>8</sup>R [...] values reflect the clinical guidelines
of the [place] [employer]. CHEMISTRY Creatinine 0.8 0.5 - 1.4 10/30 Normal [facility] CHEMISTRY BUN 6 7 - 22 10/30 [facility] CHEMISTRY Sodium Lvl 132 135 - 145 10/30 [facility] CHEMISTRY Calcium Lvl 8.5 8.5 - 10.5 10/30 [facility] CHEMISTRY CO2 29 24 - 32 10/30 Normal [facility] CHEMISTRY Chloride Lvl 92 95 - 109 10/30 [facility] CHEMISTRY Potassium Lvl 3.8 3.5 - 5.1 10/30 Normal [facility] CHEMISTRY AGAP 14.8 10.0 - 10/30 [facility] 20. [facility] HEMATOLOGY Platelet 245 133 - 450 10/30 Normal [facility] HEMATOLOGY MPV 9.4 7.4 - 10.4 10/30 [facility] HEMATOLOGY Hct 33.1 36.0 - 10/30 [facility] 48.0 [facility] HEMATOLOGY RBC 4.47 4.20 - 02 Normal [place] 5.40 /2012 [facility] HEMATOLOGY WBC 11.0 3.7 - 10.4 10/30 [facility] HEMATOLOGY Hgb 10.6 12.0 - 10/30 [facility] [place] 16.0 /2012 [facility] HEMATOLOGY MCHC 31.9 32.0 - 02 [facility] [place] 36.0 /2012 [facility] HEMATOLOGY MCV 74.1 81.0 - 10/30 [facility] [place] 99.0 /2012 [facility] HEMATOLOGY MCH 23.7 27.0 - 02 [facility] [place] 31.0 /2012 [facility] HEMATOLOGY RDW 16.9 11.5 - 02 [facility] 14.5 /2012 [facility] HEMATOLOGY PTT 28.1 22.9 - 10/30 Normal <sup>25</sup> [facility] 35.8 /2012 Interpretive Medical Data: [facility] Center Therapeutic Range: 57 - 92 Seconds HEMATOLOGY PT 13.7 12.0 - 10/30 Normal [facility] 14.7 /2012 [facility] HEMATOLOGY INR 1.03 0.85 - 10/30 Normal <sup>22</sup> [facility] 1.17 /2012 Interpretive Medical Data: Center RECOMMENDED RANGES FOR PROTIME INR:
2.0-3.0 for most medical and surgical thromboemboli c states.
2.5-3.5 for artificial heart valves and recurrent embolism.<br/ >
INR SHOULD BE USED ONLY FOR PATIENTS ON STABLE ANTICOAGULANT THERAPY. HEMATOLOGY Segs-Bands # 7.5 1.5 - 8.1 10/30 [facility] HEMATOLOGY Basophils 0.4 0.0 - 1.0 10/30 [facility] HEMATOLOGY Monocytes # 1.1 0.0 - 0.8 10/30 [facility] HEMATOLOGY Lymphocytes # 2.1 1.0 - 5.5 10/30 [facility] HEMATOLOGY Microcyte 1+ None Seen 10/30 [facility] [place] *ABN* /2012 [facility] (10/30/2012 00:20:00) [place] HEMATOLOGY Eosinophils # 0.2 0.0 - 0.5 10/30 Normal [facility] HEMATOLOGY Segs 68.3 45.0 - 10/30 [facility] [place] 75.0 /2012 [facility] HEMATOLOGY Lymphocytes 18.9 20.0 - 10/30 [facility] 40.0 [facility] HEMATOLOGY Monocytes 10.3 2.0 - 12.0 10/30 Normal [facility] HEMATOLOGY Eosinophils 2.1 0.0 - 4.0 10/30 Normal [facility] CHEMISTRY Magnesium Lvl 2.1 1.8 - 2.4 10/29 Normal [facility] CHEMISTRY Phosphorus 4.1 2.5 - 4.5 10/29 Normal [facility] CHEMISTRY Ca Ion mgdL 3.96 4.65 - 10/29 [facility] 5. [facility] CHEMISTRY Ca Norm 1.01 1.16 - 10/29 [facility] 1. [facility] CHEMISTRY Ca Ion 0.99 1.16 - 10/29 [facility] 1. [facility] CHEMISTRY Ca Norm mgdL 4.04 4.65 - 10/29 [facility] . [facility] CHEMISTRY eGFR 104 10/29 NA <sup>9</sup>R [...] Creatinine 0.7 0.5 - 1.4 10/29 Normal [facility] CHEMISTRY BUN 3 7 - 22 10/29 LOW [facility] CHEMISTRY Calcium Lvl 8.9 8.5 - 10.5 10/29 Normal [facility] CHEMISTRY Glucose Lvl 90 70 - 99 10/29 Normal <sup>12</sup> Interpretive Medical Data: Adult Center reference range values reflect the clinical guidelines
of the [place] [employer]. CHEMISTRY Chloride Lvl 99 95 - 109 10/29 Normal [facility] CHEMISTRY Potassium Lvl 4.4 3.5 - 5.1 10/29 Normal /2012 [facility] CHEMISTRY CO2 27 24 - 32 10/29 Normal [facility] CHEMISTRY Sodium Lvl 139 135 - 145 10/29 Normal [facility] CHEMISTRY AGAP 17.4 10.0 - 10/29 Normal [facility] 20.0 /2012 [facility] HEMATOLOGY PTT 23.7 22.9 - 10/29 Normal <sup>26</sup> [facility] 35.8 /2012 Interpretive Medical Data: Heparin Center Therapeutic Range: 57 - 92 Seconds HEMATOLOGY PT 13.4 12.0 - 10/29 Normal [facility] 14.7 /2012 [facility] HEMATOLOGY INR 1.00 0.85 - 10/29 Normal <sup>23</sup> [facility] 1.17 Interpretive Medical Data: Center RECOMMENDED RANGES FOR PROTIME INR:
2.0-3.0 for most medical and surgical thromboemboli c states.
2.5-3.5 for artificial heart valves and recurrent embolism.<br/ >
INR SHOULD BE USED ONLY FOR PATIENTS ON STABLE ANTICOAGULANT THERAPY. HEMATOLOGY RDW 17.1 11.5 - 10/29 [facility] [place] 14.5 /2012 [facility] HEMATOLOGY MCH 23.8 27.0 - 10/29 LOW [facility] 31.0 /2012 [facility] HEMATOLOGY MCHC 32.2 32.0 - 10/29 Normal [place] 36.0 /2012 [facility] HEMATOLOGY Hct 33.6 36.0 - 10/29 [facility] 48.0 /2012 [facility] HEMATOLOGY MCV 74.0 81.0 - 10/29 LOW [facility] 99.0 /2012 [facility] HEMATOLOGY Platelet 233 133 - 450 10/29 Normal [facility] HEMATOLOGY MPV 9.9 7.4 - 10.4 10/29 Normal /2012 [facility] HEMATOLOGY RBC 4.54 4.20 - 10/29 Normal [facility] 5.40 /2012 [facility] HEMATOLOGY Hgb 10.8 12.0 - 10/29 [facility] [place] 16.0 /2012 [facility] HEMATOLOGY WBC 9.7 3.7 - 10.4 10/29 Normal [facility] HEMATOLOGY Lymphocytes # 2.6 1.0 - 5.5 10/29 Normal [facility] HEMATOLOGY Basophils 0.7 0.0 - 1.0 10/29 Normal [facility] HEMATOLOGY Segs-Bands # 6.0 1.5 - 8.1 10/29 Normal [facility] HEMATOLOGY Monocytes # 0.7 0.0 - 0.8 10/29 Normal [facility] HEMATOLOGY Eosinophils # 0.3 0.0 - 0.5 10/29 Normal [facility] HEMATOLOGY Basophils # 0.1 0.0 - 0.2 10/29 Normal [facility] HEMATOLOGY Microcyte 1+ None Seen 10/29 [facility] [place] *ABN* /2012 Medical (10/29/2012 00:56:00) [place] HEMATOLOGY Segs 61.5 45.0 - 10/29 Normal [facility] 75.0 [facility] HEMATOLOGY Lymphocytes 26.8 20.0 - 10/29 Normal [facility] 40.0 [facility] HEMATOLOGY Monocytes 7.6 2.0 - 12.0 10/29 Normal [facility] HEMATOLOGY Eosinophils 3.4 0.0 - 4.0 10/29 Normal [facility] CHEMISTRY Amylase Lvl 27 25 - 115 10/28 Normal [facility] CHEMISTRY Lipase Lvl 58 73 - 393 10/28 [facility] CHEMISTRY Bili Indirect 0.2 0.0 - 1.0 10/28 Normal [facility] CHEMISTRY Globulin 3.4 2.0 - 4.0 10/28 Normal [facility] CHEMISTRY A/G Ratio 0.8 0.7 - 1.6 10/28 Normal [facility] CHEMISTRY AST 24 0 - 37 10/28 Normal [facility] CHEMISTRY Bili Total 0.3 0.2 - 1.3 10/28 Normal [facility] CHEMISTRY Total Protein 6.2 6.4 - 8.4 10/28 [facility] CHEMISTRY ALT 23 0 - 65 10/28 Normal [facility] CHEMISTRY Albumin Lvl 2.8 3.5 - 5.0 10/28 LOW [facility] CHEMISTRY Alk Phos 85 39 - 136 10/28 Normal [facility] CHEMISTRY Bili Direct 0.1 0.0 - 0.3 10/28 Normal [facility] HEMATOLOGY PTT 23.9 22.9 - 10/28 Normal <sup>27</sup> [facility] 35.8 /2012 Interpretive Medical Data: Heparin Center Therapeutic Range: 57 - 92 [facility] HEMATOLOGY PT 13.5 12.0 - 10/28 Normal [facility] 14.7 /2012 Medical Center HEMATOLOGY INR 1.01 0.85 - 10/28 Normal <sup>24</sup> [facility] 1.17 /2012 Interpretive Medical Data: Center RECOMMENDED RANGES FOR PROTIME INR:
2.0-3.0 for most medical and surgical thromboemboli c states.
2.5-3.5 for artificial heart valves and recurrent embolism.<br/ >
INR SHOULD BE USED ONLY FOR PATIENTS ON STABLE ANTICOAGULANT THERAPY. VIRAL - Influ B Negative 6 Negative 10/28 Normal <sup>6</sup>I [facility] SEROLOGY (10/27/2012 18:02:02) nterpretive Medical Data: [...] - Influ A Negative Negative 10/28 Normal [facility] SEROLOGY (10/27/2012 18:02:02) [facility] Center CHEMISTRY Vitamin D, 16 30 - 100 10/25 LOW <sup>13</sup> [facility] 25-OH, Interpretive Medical Data: Center Reference range is based on recommendatio ns in the Endocrine<br/ >Society Clinical Practice Guideline (J Clin Endocrinol Metab
201 1;[id number]) CHEMISTRY Hgb A1C 8.4 10/25 NA <sup>21</sup> [facility] Interpretive Medical Data: HbA1C% Center eAG(mg/dL) [...] LDL 87 0 - 129 10/25 Normal [facility] CHEMISTRY HDL 35 >=35 10/25 Normal [facility] CHEMISTRY Trig 101 0 - 200 10/25 Normal [facility] CHEMISTRY Chol 142 120 - 200 10/25 Normal [facility] CHEMISTRY CHD Risk 4.06 3.90 - 10/25 Normal [facility] 5.80 /2012 [facility] CHEMISTRY Troponin-I 5.43 0.00 - 10/25 CRIT <sup>18</sup> [facility] 0.40 Result Medical Comment: Center Critical Result(s) called to Jelani Rasmussen at 10/25/2012 00:47:48 [employer]NAGER [employer]ELOPMENT by . Read back OK. CHEMISTRY Troponin-T 0.693 0.000 - 10/25 CRIT <sup>15</sup> [facility] 0.100 Result Medical Comment: Center Critical Result(s) called to daisy otoole at 10/25/2012 01:18:09 [employer]ELOPMENT by tac. Read back OK. HEMATOLOGY Basophils # 0.2 0.0 - 0.2 10/25 Normal [facility] HEMATOLOGY Plt Morph Normal 10/25 Normal [facility] (10/25/2012 00:15:00) [facility] CHEMISTRY ALT 15 0 - 65 10/24 Normal [facility] CHEMISTRY Albumin Lvl 2.7 3.5 - 5.0 10/24 LOW [facility] CHEMISTRY Bili Total 0.5 0.2 - 1.3 10/24 Normal [facility] CHEMISTRY Alk Phos 83 39 - 136 10/24 Normal [facility] CHEMISTRY Bili Direct 0.2 0.0 - 0.3 10/24 Normal [facility] CHEMISTRY Total Protein 5.8 6.4 - 8.4 10/24 LOW [facility] CHEMISTRY AST 41 0 - 37 10/24 HI [facility] CHEMISTRY Bili Indirect 0.3 0.0 - 1.0 10/24 Normal [facility] CHEMISTRY Globulin 3.1 2.0 - 4.0 10/24 Normal [facility] CHEMISTRY A/G Ratio 0.9 0.7 - 1.6 10/24 Normal [facility] CHEMISTRY POC A Mode NC-3LPM 10/24 NA [facility] CHEMISTRY POC A HCO3 19 22 - 26 10/24 LOW [facility] CHEMISTRY POC A O2 Sat 98.0 95.0 - 10/24 Normal [place] 100.0 [facility] CHEMISTRY POC A BE -6 -2-2 - 2 10/24 LOW [facility] CHEMISTRY POC A PO2 103 80 - 100 10/24 HI [facility] CHEMISTRY POC A pH 7.35 7.35 - 10/24 LOW [facility] 7.45 [facility] CHEMISTRY POC A PCO2 34 35 - 45 10/24 LOW [facility] CHEMISTRY POC A Temp 37.0 10/24 NA [facility] CHEMISTRY POC A Source ART 10/24 NA [facility] CHEMISTRY Troponin-T 0.688 0.000 - 10/24 CRIT <sup>16</sup> [facility] 0.100 Result Medical Comment: Center Critical Result(s) called to Maribel Bustos at 10/24/2012 13:23:46 [employer]NAGER [employer]ELOPMENT by lwb . Read back OK. CHEMISTRY Troponin-I 7.61 0.00 - 10/24 CRIT <sup>19</sup> [facility] 0.40 /2012 Result Medical Comment: Center Critical Result(s) called to mariana bustos at 10/24/2012 13:37:22 CSTby_lss. Read back OK. CHEMISTRY Total CK 150 12 - 191 10/24 Normal [facility] CHEMISTRY Lactic Acid 0.7 0.5 - 2.2 10/24 Normal [facility] Lvl [facility] CHEMISTRY CK MB Index 11.0 0.0 - 2.5 10/24 HI [facility] CHEMISTRY CK MB 16.5 0.5 - 3.6 10/24 HI [facility] CHEMISTRY Troponin-T 0.750 0.000 - 10/24 CRIT <sup>17</sup> [facility] 0.100 Result Medical Comment: Center Critical Result(s) called to Lyn King at 10/24/2012 09:52:38 [employer]NAGER [employer]ELOPMENT by lwb . Read back OK. 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 Read back OK. CHEMISTRY Total CK 170 12 - 191 10/24 Normal <sup>14</sup> Result Medical Comment: Center Specimen Moderately Hemolyzed. CHEMISTRY CK MB Index 10.5 0.0 - 2.5 10/24 HI [facility] CHEMISTRY CK MB 17.8 0.5 - 3.6 10/24 HI [facility] CHEMISTRY Ketone 0.07 <=0.27 10/24 Normal [facility] CHEMISTRY Ketone 2.61 <=0.27 10/24 HI Quantitative [facility] CHEMISTRY CK MB 30.9 0.5 - 3.6 10/24 HI [facility] CHEMISTRY CK MB Index 12.2 0.0 - 2.5 10/24 HI [facility] CHEMISTRY Total CK 254 12 - 191 10/24 HI [facility] CHEMISTRY Lactic Acid 0.6 0.5 - 2.2 10/24 Normal Lvl [facility] CHEMISTRY POC V O2 Sat 56.0 40.0 - 10/24 Normal [place] 70.0 [facility] CHEMISTRY POC V HCO3 22 22 - 26 10/24 Normal [facility] CHEMISTRY POC V PO2 32 20 - 49 10/24 Normal [facility] CHEMISTRY POC V BE -4 -2-2 - 2 10/24 LOW [facility] CHEMISTRY POC V PCO2 41 38 - 52 10/24 Normal [facility] CHEMISTRY POC V pH 7.33 7.28 - 10/24 Normal [place] 7.42 [facility] CHEMISTRY POC V Temp 37.0 10/24 NA [facility] Center CHEMISTRY POC V Source MARK 10/24 NA [facility] CHEMISTRY Ketone 0.93 <=0.27 10/24 HI [facility] Center Microbiolog Culture: 10/24 [facility] y [facility] Center CHEMISTRY Lactic Acid 0.6 0.5 - 2.2 10/23 Normal [place] Lvl /2012 Medical Center Microbiolog Culture: 10/23 [facility] y Blood Medical Center CHEMISTRY POC [...] PCO2 36 35 - 45 10/23 Normal [facility] Center CHEMISTRY POC A LA 0.6 0.5 - 2.2 10/23 Normal [facility] Center CHEMISTRY POC A Ca Ion 1.20 1.16 - 10/23 Normal [place] 1.30 Medical Center CHEMISTRY POC A Na 133 135 - 145 10/23 LOW [facility] CHEMISTRY POC A K 3.8 3.5 - 5.1 10/23 Normal [facility] CHEMISTRY A/G Ratio 0.8 0.7 - 1.6 10/23 Normal [facility] CHEMISTRY AST 90 0 - 37 10/23 HI [facility] Center CHEMISTRY Globulin 3.9 2.0 - 4.0 10/23 Normal [facility] Center CHEMISTRY B/C Ratio 16 6 - 25 10/23 Normal [facility] CHEMISTRY Total Protein 7.2 6.4 - 8.4 10/23 Normal [facility] CHEMISTRY Bili Total 0.5 0.2 - 1.3 10/23 Normal Medical [facility] CHEMISTRY Albumin Lvl 3.3 3.5 - 5.0 10/23 LOW [facility] CHEMISTRY Alk Phos 94 39 - 136 10/23 Normal Medical [facility] CHEMISTRY ALT 23 0 - 65 10/23 [facility] CHEMISTRY Osmolality 292 280 - 300 10/23 Normal [facility] CHEMISTRY Myoglobin 128 25 - 72 10/23 [facility] Microbiolog Culture: 10/23 [facility] y [facility] Center Screen BACTERIAL - MRSA by PCR Positive 1, 2 10/23 ABN <sup>1</sup>R [facility] SEROLOGY *ABN* /2012 [facility] Medical (10/23/2012 [...] CHEMISTRY Osmolality 309 280 - 300 10/23 [facility] CHEMISTRY POC A Hct 37.0 36.0 - 10/23 [facility] 48.0 [facility] CHEMISTRY POC A Na 129 135 - 145 10/23 LOW [facility] CHEMISTRY POC A LA 1.0 0.5 - 2.2 10/23 [facility] CHEMISTRY POC A K 4.5 3.5 - 5.1 10/23 [facility] CHEMISTRY POC A Glu >425 70 - 99 10[facility] CHEMI[facility]Y POC A Ca Ion 1.18 1.16 - 10/23 [facility] 1.30 /2012 [facility] CHEMISTRY POC A PCO2 30 35 - 45 10/23 CRIT [facility] CHEMISTRY POC A PO2 123 80 - 100 10/23 [facility] CHEMISTRY POC A Temp 37.0 10/23 NA Medical Center CHEMISTRY POC A HCO3 14 22 - 26 10/23 LOW [facility] CHEMISTRY POC A Source ART 10/23 NA [facility] CHEMISTRY POC A pH 7.27 7.35 - 10/23 LOW [facility] 7.45 Medical Center CHEMISTRY POC A BE -12 -2-2 - 2 10/23 LOW [facility] CHEMISTRY POC A O2 Sat 98.0 95.0 - 10/23 Normal [place] 100.0 [facility] Center CHEMISTRY Bili Direct 0.4 0.0 - 0.3 10/23 [facility] CHEMISTRY Lipase Lvl 54 73 - 393 10/23 LOW [facility] Center CHEMISTRY Amylase Lvl 28 25 - 115 10/23 Normal [facility] CHEMISTRY B/C Ratio 10 6 - 25 10/23 Normal [facility] BLOOD BANK Antibody Scrn Negative 10/23 Normal [facility] RESULTS (10/23/2012 01:00:00) Medical Center BLOOD BANK ABO/Rh A POS 10/23 Unknown [facility] RESULTS Medical Center URINALYSIS UA 0.1 - 1.0 10/23 NA [facility] Urobilinogen /2012 Medical Center URINALYSIS UA Sq Epi Moderate /LPF Few 10/23 ABN [facility] *ABN* /2012 Medical (10/23/2012 00:01:00) Center URINALYSIS UA Leuk Est Negative Negative 10/23 Normal [facility] (10/23/2012 00:01:00) Medical Center URINALYSIS UA Nitrite Negative Negative 10/23 Normal [facility] (10/23/2012 00:01:00) Medical Center URINALYSIS UA Blood Negative Negative 10/23 Normal [facility] (10/23/2012 00:01:00) Medical Center URINALYSIS UA Glucose >=1000 mg/dL Negative 10/23 ABN [facility] *ABN* Medical (10/23/2012 00:01:00) Center URINALYSIS UA Protein 10 mg/dL Negative 10/23 ABN [facility] *ABN* Medical (10/23/2012 00:01:00) Center URINALYSIS UA pH 5.0 5.0 - 8.0 10/23 Normal Medical Center URINALYSIS UA WBC 1 0 - 5 10/23 Normal [facility] Center URINALYSIS UA Bili Negative Negative 10/23 NA [facility] *NA* Medical (10/23/2012 00:01:00) Center URINALYSIS UA Ketones >=150 mg/dL Negative 10/23 ABN [facility] *ABN Medical (10/23/2012 00:01:00) Center URINALYSIS UA Spec Grav 1.015 <=1.030 10/23 Normal [facility] Center URINALYSIS UA Turbidity Clear Clear 10/23 Normal [facility] (10/23/2012 00:01:00) Medical Center URINALYSIS UA Color Light Yellow Yellow 10/23 NA [facility] *NA* Medical (10/23/2012 00:01:00) Center BEDSIDE Gluc POC 265 70 - 99 10/08 [place] <sup>1</sup>I [facility] GLUCOSE [facility] nterpretive Medical TESTING Data: Center Upper Reportable Limit: 200 mg/dL. BEDSIDE Comment1 Notify 10/08 NA [facility] GLUCOSE RN/MD /2012 Medical TESTING Center BEDSIDE Comment1 Notify 10/08 NA [facility] GLUCOSE RN/MD /2012 Medical TESTING Center BEDSIDE Gluc POC 204 70 - 99 10/08 [place] <sup>2</sup>I [facility] GLUCOSE [facility] nterpretive Medical TESTING Data: Center Upper Reportable Limit: 200 mg/dL. CHEMISTRY Phosphorus 2.7 2.5 - 4.5 10/08 Normal [facility] CHEMISTRY Magnesium Lvl 1.6 1.8 - 2.4 10/08 LOW [facility] CHEMISTRY Ca Ion 1.17 1.16 - 02 Normal [facility] 1. [facility] Center CHEMISTRY Ca Norm 1.18 1.16 - 10/08 Normal [facility] 1. [facility] CHEMISTRY Ca Ion mgdL 4.68 4.65 - 10/08 Normal [facility] 5. [facility] CHEMISTRY Ca Norm mgdL 4.72 4.65 - 10/08 Normal [facility] 5. [facility] CHEMISTRY AGAP 17.6 10.0 - 10/08 Normal [facility] 20.0 [facility] Center CHEMISTRY eGFR 109 10/08 NA <sup>4</sup>R [...] CO2 24 24 - 32 10/08 Normal [facility]2012 [facility] CHEMISTRY Calcium Lvl 8.5 8.5 - 10.5 10/08 Normal [facility]2012 [facility] CHEMISTRY Potassium Lvl 3.6 3.5 - 5.1 10/08 Normal [facility]2012 [facility] CHEMISTRY Chloride Lvl 96 95 - 109 10/08 Normal [facility]2012 [facility] CHEMISTRY Creatinine 0.6 0.5 - 1.4 10/08 Normal [facility] CHEMISTRY Sodium Lvl 134 135 - 145 10/[address] CHEMISTRY Glucose Lvl 129 70 - 99 10/08 HI <sup>7</sup>I nterpretive Medical Data: Adult Center reference range values reflect the clinical guidelines
of the [place] [employer]. CHEMISTRY BUN 4 7 - 22 10/08 LOW [facility]2012 [facility] HEMATOLOGY Monocytes # 1.1 0.0 - 0.8 10/08 HI [facility]2012 [facility] HEMATOLOGY Eosinophils # 0.3 0.0 - 0.5 10/08 Normal [facility]2012 [facility] HEMATOLOGY Basophils # 0.1 0.0 - 0.2 10/08 [facility] HEMATOLOGY Microcyte 1+ None Seen 10/08 Psychiatric *ABN* /2012 Medical (10/08/2012 03:57:00) Center HEMATOLOGY Segs 55.7 45.0 - 10/08 Normal [place] 75.0 /2013 [facility] HEMATOLOGY Lymphocytes 31.3 20.0 - 02/ Normal [place] 40.0 /2012 [facility] HEMATOLOGY Monocytes 10.0 2.0 - 12.0 02/ Normal /2012 [facility] HEMATOLOGY Eosinophils 2.5 0.0 - 4.0 02/ Normal [facility] HEMATOLOGY Segs-Bands # 6.1 1.5 - 8.1 02/ Normal [facility] HEMATOLOGY Basophils 0.5 0.0 - 1.0 02/ Normal /2012 [facility] HEMATOLOGY Lymphocytes # 3.4 1.0 - 5.5 02/ Normal [facility] HEMATOLOGY RDW 16.9 11.5 - 02/ [facility] 14.5 /2012 [facility] HEMATOLOGY Platelet 218 133 - 450 02/ Normal /2012 [facility] HEMATOLOGY WBC 10.9 3.7 - 10.4 02/ [facility] HEMATOLOGY RBC 4.35 4.20 - 02/ Normal [facility] 5.40 /2012 [facility] HEMATOLOGY MPV 9.7 7.4 - 10.4 02/ Normal [facility] HEMATOLOGY Hgb 10.4 12.0 - 02/ [facility] 16.0 /2012 [facility] HEMATOLOGY Hct 32.7 36.0 - 02/ [facility] 48.0 /2012 [facility] HEMATOLOGY MCHC 31.8 32.0 - 02/ [facility] 36.0 /2012 [facility] HEMATOLOGY MCV 75.2 81.0 - 02/ [facility] 99.0 /2012 [facility] HEMATOLOGY MCH 23.9 27.0 - 02/ [facility] 31.0 /2012 [facility] BEDSIDE Comment1 Notify 10/08 NA [facility] GLUCOSE RN/MD /2012 Medical TESTING Center BEDSIDE Gluc POC 247 70 - 99 10/08 [place] <sup>3</sup>I [facility] GLUCOSE [facility] /2012 nterpretive Medical TESTING Data: Center Upper Reportable Limit: 200 mg/dL. CHEMISTRY Magnesium Lvl 2.1 1.8 - 2.4 02 Normal [facility] CHEMISTRY Ca Norm 1.16 1.16 - 02 [facility] 1.30 [facility] CHEMISTRY Ca Ion mgdL 4.72 4.65 - 02/ [facility] 5.20 /2013 [facility] CHEMISTRY Ca Norm mgdL 4.64 4.65 - 10/07 [facility] 5.20 [facility] CHEMISTRY Ca Ion 1.18 1.16 - 10/07 Normal [facility] 1.30 [facility] Center CHEMISTRY Phosphorus 2.6 2.5 - 4.5 10/07 Normal [facility] CHEMISTRY Calcium Lvl 8.1 8.5 - 10.5 10/07 [facility] CHEMISTRY AGAP 19.4 10.0 - 10/07 Normal [facility] 20.0 /2012 [facility] CHEMISTRY eGFR 116 10/07 NA <sup>5</sup>R [...] CHEMISTRY BUN 6 7 - 22 10/07 [facility] CHEMISTRY Glucose Lvl 99 70 - 99 10/07 Normal <sup>8</sup>I nterpretive Medical Data: Adult Center reference range values reflect the clinical guidelines
of the [place] [employer]. CHEMISTRY Creatinine 0.5 0.5 - 1.4 10/07 Normal [facility] CHEMISTRY Potassium Lvl 3.4 3.5 - 5.1 10/07 [facility] CHEMISTRY Sodium Lvl 135 135 - 145 10/07 Normal [facility] CHEMISTRY CO2 24 24 - 32 10/07 Normal [facility] CHEMISTRY Chloride Lvl 95 95 - 109 10/07 [facility] 2013 [facility] HEMATOLOGY MCHC 31.8 32.0 - 02/ [facility] [place] 36.0 /2012 Medical [place] HEMATOLOGY MCH 24.1 27.0 - 02/ [facility] 31.0 [facility] HEMATOLOGY MCV 75.7 81.0 - 02 [facility] 99.0 /2012 [facility] HEMATOLOGY Hct 31.0 36.0 - 02 [facility] [place] 48.0 /2012 [facility] HEMATOLOGY Hgb 9.9 12.0 - 02 [facility] [place] 16.0 /2012 [facility] HEMATOLOGY MPV 9.1 7.4 - 10.4 02 Normal [facility] HEMATOLOGY Platelet 222 133 - 450 02 Normal [facility] HEMATOLOGY RDW 16.8 11.5 - 02 [facility] 14.5 /2012 [facility] HEMATOLOGY RBC 4.10 4.20 - 02 [facility] 5.40 /2012 [facility] HEMATOLOGY WBC 13.8 3.7 - 10.4 10/07 [facility] HEMATOLOGY Segs-Bands # 9.6 1.5 - 8.1 02 [facility] HEMATOLOGY Basophils 0.3 0.0 - 1.0 02 Normal [facility] HEMATOLOGY Eosinophils 1.0 0.0 - 4.0 02 [facility] HEMATOLOGY Microcyte 1+ None Seen 10/07 Psychiatric *ABN* /2012 Medical (10/07/2012 03:25:00) [place] HEMATOLOGY Lymphocytes # 2.9 1.0 - 5.5 02 [facility] HEMATOLOGY Eosinophils # 0.1 0.0 - 0.5 02 Normal [facility] HEMATOLOGY Monocytes # 1.2 0.0 - 0.8 02 [facility] HEMATOLOGY Monocytes 8.8 2.0 - 12.0 02 [facility] HEMATOLOGY Lymphocytes 20.8 20.0 - 02 [facility] 40.0 [facility] HEMATOLOGY Segs 69.1 45.0 - 02 Normal [facility] 75.0 /2012 [facility] Center URINALYSIS UA Glucose 500mg/dL 10/06 NA [facility] URINALYSIS UA 0.1 - 1.0 10/06 NA [facility] Urobilinogen /2013 [facility] URINALYSIS Micro? Performed 10/06 NA [facility] *NA* Medical (10/06/2012 11:42:00) Center URINALYSIS UA [place] Yeast Moderate /HPF None [facility] (10/06/2012 11:42:00) Center URINALYSIS UA RBC 3 0 - 2 10/06 HI [facility] URINALYSIS UA Bacteria Many /HPF None Seen 10/06 [facility] (10/06/2012 11:42:00) Center URINALYSIS UA WBC 3 0 - 5 10/06 Normal [facility] URINALYSIS UA Leuk Est Negative Negative 10/06 Normal [facility] (10/06/2012 11:42:00) Medical Center URINALYSIS UA Nitrite Negative Negative 10/06 Normal [facility] (10/06/2012 11:42:00) [facility] Center URINALYSIS UA Sq Epi Many /LPF Few 10/06 [facility]* Medical (10/06/2012 11:42:00) Center URINALYSIS UA Bili Negative Negative 10/06 [facility] (10/06/2012 11:42:00) Center URINALYSIS UA Blood Negative Negative 10/06 Normal [facility] (10/06/2012 11:42:00) [facility] Center URINALYSIS UA pH 5.5 5.0 - 8.0 10/06 Normal [facility] Center URINALYSIS UA Protein 20 mg/dL Negative 10/06 [facility] (10/06/2012 11:42:00) Center URINALYSIS UA Ketones >=150 mg/dL Negative 10/06 ABN [facility]* Medical (10/06/2012 11:42:00) Center URINALYSIS UA Color Yellow Yellow 10/06 [facility] (10/06/2012 11:42:00) Center URINALYSIS UA Turbidity Slight Clear 10/06 [facility] (10/06/2012 11:42:00) Center URINALYSIS UA Spec Grav 1.011 <=1.030 10/06 Normal [facility] Center URINALYSIS UA Mucus Few /LPF None Seen 10/06 NA [facility] *NA* /2012 Medical (10/06/2012 11:42:00) Center Microbiolog Culture: 10/06 [facility] y Urine [facility] CHEMISTRY Phosphorus 2.5 2.5 - 4.5 10/06 Normal [facility] CHEMISTRY Magnesium Lvl 1.5 1.8 - 2.4 10/06 LOW [facility] CHEMISTRY eGFR 76 10/06 NA <sup>6</sup>R [...] Lvl 3.9 3.5 - 5.1 10/06 Normal [facility] CHEMISTRY Chloride Lvl 97 95 - 109 10/06 Normal [facility] CHEMISTRY Calcium Lvl 8.3 8.5 - 10.5 10/06 LOW [facility] CHEMISTRY CO2 22 24 - 32 10/06 [facility] CHEMISTRY Glucose Lvl 234 70 - 99 10/06 [place] <sup>9</sup>I nterpretive Medical Data: Adult Center reference range values reflect the clinical guidelines
of the [place] [employer]. CHEMISTRY Creatinine 0.9 0.5 - 1.4 10/06 Normal [facility] CHEMISTRY BUN 9 7 - 22 10/06 Normal [facility] CHEMISTRY Sodium Lvl 134 135 - 145 10/06 [facility] CHEMISTRY AGAP 18.9 10.0 - 10/06 Normal [place] 20.0 /2012 [facility] HEMATOLOGY Segs-Bands # 13.3 1.5 - 8.1 10/06 [facility] Center HEMATOLOGY Basophils 0.2 0.0 - 1.0 10/06 Normal [facility] Center HEMATOLOGY Eosinophils 0.1 0.0 - 4.0 10/06 Normal [facility] HEMATOLOGY Monocytes 6.7 2.0 - 12.0 10/06 Normal [facility] HEMATOLOGY Segs 81.7 45.0 - 10/06 [facility] [place] 75.0 /2012 [facility] HEMATOLOGY Lymphocytes 11.3 20.0 - 10/06 [facility] [place] 40.0 /2012 [facility] HEMATOLOGY Microcyte 1+ None Seen 10/06 [facility] [place] *ABN* /2012 Medical (10/06/2012 04:25:00) [place] HEMATOLOGY Monocytes # 1.1 0.0 - 0.8 10/06 [facility] HEMATOLOGY Lymphocytes # 1.8 1.0 - 5.5 10/06 Normal [facility] HEMATOLOGY RBC 4.28 4.20 - 10/06 Normal [place] 5.40 /2012 [facility] HEMATOLOGY WBC 16.3 3.7 - 10.4 10/06 [facility] HEMATOLOGY Hgb 10.3 12.0 - 10/06 [facility] [place] 16.0 /2012 [facility] HEMATOLOGY Hct 32.6 36.0 - 10/06 [facility] [place] 48.0 /2012 Medical Center HEMATOLOGY MCH 24.0 27.0 - 10/06 [facility] [place] 31.0 /2012 [facility] HEMATOLOGY MCV 76.1 81.0 - 10/06 [facility] [place] 99.0 /2012 Medical Center HEMATOLOGY MCHC 31.5 32.0 - 10/06 [facility] [place] 36.0 /2012 [facility] HEMATOLOGY RDW 17.2 11.5 - 10/06 [facility] [place] 14.5 /2012 [facility] HEMATOLOGY Platelet 248 133 - 450 10/06 Normal [facility] HEMATOLOGY MPV 9.5 7.4 - 10.4 10/06 Normal [facility] CHEMISTRY Ca Norm 1.07 1.16 - 10/05 [facility] [place] 1.30 [facility] CHEMISTRY Ca Ion mgdL 4.36 4.65 - 10/05 [facility] [place] 5.20 [facility] CHEMISTRY Ca Norm mgdL 4.28 4.65 - 10/05 LOW [place] 5.20 [facility] CHEMISTRY Ca Ion 1.09 1.16 - 10/05 LOW [facility] 1.30 [facility] HEMATOLOGY Basophils # 0.1 0.0 - 0.2 10/05 Normal [facility] HEMATOLOGY Eosinophils # 0.1 0.0 - 0.5 10/05 Normal [facility] CHEMISTRY U Preg Negative Negative 10/03 Normal [facility] (10/03/2012 06:31:00) [facility] BLOOD BANK ABO/Rh A POS 10/03 Unknown [facility] RESULTS [facility] BLOOD BANK Antibody Scrn Negative 10/03 Normal [facility] RESULTS (10/03/2012 06:00:00) [facility] CHEMISTRY Total Protein 7.8 6.4 - 8.4 09/23 Normal [facility] CHEMISTRY AST 31 0 - 37 09/23 Normal [facility] CHEMISTRY Bili Total 0.3 0.2 - 1.3 09/23 Normal [facility] CHEMISTRY ALT 50 0 - 65 09/23 Normal [facility] CHEMISTRY Albumin Lvl 3.6 3.5 - 5.0 09/23 Normal [facility] CHEMISTRY Alk Phos 150 39 - 136 09/23 HI [facility] CHEMISTRY B/C Ratio 21 6 - 25 09/23 Normal [facility] CHEMISTRY Globulin 4.2 2.0 - 4.0 09/23 HI [facility] CHEMISTRY A/G Ratio 0.9 0.7 - 1.6 09/23 Normal [facility] HEMATOLOGY Hypochrom Slight None Seen 09/23 Normal [facility] (09/23/2012 12:35:00) [facility] HEMATOLOGY Elliptocyte Slight None Seen 09/23 ABN [facility] *ABN* /2012 Medical (09/23/2012 12:35:00) Center HEMATOLOGY Basophils # 0.1 0.0 - 0.2 09/23 Normal [facility] HEMATOLOGY Plt Morph Normal 09/23 Normal [facility] (09/23/2012 12:35:00) [facility] URINALYSIS UA 0.1 - 1.0 09/23 NA [facility] Urobilinogen /2012 [facility] URINALYSIS UA Nitrite Negative Negative 09/23 Normal [facility] (09/23/2012 12:35:00) Medical Center URINALYSIS UA Blood Negative Negative 09/23 Normal [facility] (09/23/2012 12:35:00) Medical Center URINALYSIS UA Leuk Est Negative Negative 09/23 Normal [facility] (09/23/2012 12:35:00) Medical Center URINALYSIS Micro? Not Indicated 09/23 NA [facility] (09/23/2012 12:35:00) Center URINALYSIS UA Ketones Negative mg/dL Negative 09/23 NA [facility] * [facility] (09/23/2012 12:35:00) Center URINALYSIS UA Bili Negative Negative 09/23 [facility] (09/23/2012 12:35:00) Center URINALYSIS UA Protein Negative mg/dL Negative 09/23 Normal [facility] (09/23/2012 12:35:00) Medical Center URINALYSIS UA pH 5.0 5.0 - 8.0 09/23 Normal Medical Center URINALYSIS UA Glucose Negative mg/dL Negative 09/23 NA [facility] (09/23/2012 12:35:00) Center URINALYSIS UA Color Light Yellow Yellow 09/23 NA [facility] (09/23/2012 12:35:00) Center URINALYSIS UA Spec Grav 1.004 <=1.030 09/23 Normal [facility] URINALYSIS UA Turbidity Clear Clear 09/23 Normal [facility] (09/23/2012 12:35:00) Medical Center BEDSIDE Gluc POC 153 70 - 99 06/28 HI <sup>1</sup>I [facility] GLUCOSE Lifsc[facility] nterpretive Medical TESTING Data: Center Upper Reportable Limit: 200 mg/dL. CHEMISTRY U Preg Negative Negative 06/28 Normal [facility] (06/28/2012 07:27:00) Medical Center Pathology Reports No Data Provided for This Section Diagnostic Reports Report Value Date Source Abdomen/Pelvis w EXAM: CT ABDOMEN WITH CONTRAST 07/12/2013 [facility] Medical contrast CT EXAM: CT PELVIS [...] views EXAM: XR ABDOMEN 1 VIEW 04/03/2013 [facility] DATE: March 25 90,013. INDICATION: Nausea. COMPARISON: [...] 1view EXAM: XR CHEST 1 VIEW 04/02/2013 [facility] DATE: 2013-04-02 1638 hours INDICATION: Chest pain [...] Chest 1view EXAM: CHEST 1 VIEW 03/07/2013 [facility] DATE: Mar 07, 2013 07:45:00 AM INDICATION: [...] 2 views EXAM: CHEST 2 VIEWS 03/06/2013 [facility] DATE: Mar 06, 2013 06:47:00 PM INDICATION: [...] Comments Source Systolic (mm Hg) 124 08/13/2013 [facility] Respitory Rate 18 08/13/2013 [facility] Temperature Oral (F) 98.8 F 08/13/2013 [facility] Heart Rate 102 08/13/2013 [facility] Diastolic (mm Hg) 46 08/13/2013 [facility] Systolic (mm Hg) 107 08/13/2013 [facility] Respitory Rate 18 08/13/2013 [facility] Diastolic (mm Hg) 63 08/13/2013 [facility] Heart Rate 103 08/13/2013 [facility] Heart Rate 105 08/13/2013 [facility] Respitory Rate 18 08/13/2013 [facility] Systolic (mm Hg) 117 08/13/2013 [facility] Diastolic (mm Hg) 70 08/13/2013 [facility] Weight 81.818 08/13/2013 [facility] Height 162.56 cm 08/13/2013 [facility] Temperature Oral (F) 98.4 F 08/13/2013 [facility] Diastolic (mm Hg) 61 07/15/2013 [facility] Temperature Oral (F) 97.7 F 07/15/2013 [facility] Systolic (mm Hg) 117 07/15/2013 [facility] Respitory Rate 18 07/15/2013 [facility] Heart Rate 90 07/15/2013 [facility] Respitory Rate 18 07/14/2013 [facility] Heart Rate 104 07/14/2013 [facility] Diastolic (mm Hg) 46 07/14/2013 [facility] Systolic (mm Hg) 91 07/14/2013 [facility] Diastolic (mm Hg) 61 07/14/2013 [facility] Systolic (mm Hg) 95 07/14/2013 [facility] Respitory Rate 18 07/14/2013 [facility] Heart Rate 120 07/14/2013 [facility] Temperature Oral (F) 97.5 F 07/14/2013 [facility] Temperature Oral (F) 97.6 F 07/14/2013 [facility] Height 162.56 cm 07/12/2013 [facility] Weight 86.364 07/12/2013 [facility] Temperature Oral (F) 97.1 F 04/03/2013 [facility] Respitory Rate 18 04/03/2013 [facility] Heart Rate 79 04/03/2013 [facility] Diastolic (mm Hg) 66 04/03/2013 [facility] Systolic (mm Hg) 94 04/03/2013 [facility] Diastolic (mm Hg) 28 04/03/2013 [facility] Systolic (mm Hg) 116 04/03/2013 [facility] Respitory Rate 20 04/03/2013 [facility] Heart Rate 100 04/03/2013 [facility] Temperature Oral (F) 97.0 F 04/03/2013 [facility] Height 162.56 cm 04/03/2013 [facility] Weight 90 04/03/2013 [facility] Height 162.56 cm 04/02/2013 [facility] Weight 90 04/02/2013 [facility] Systolic (mm Hg) 132 03/09/2013 [facility] Diastolic (mm Hg) 72 03/09/2013 [facility] Heart Rate 114 03/09/2013 [facility] Temperature Oral (F) 97.7 F 03/09/2013 [facility] Respitory Rate 20 03/09/2013 [facility] Temperature Oral (F) 97.7 F 03/09/2013 [facility] Heart Rate 108 03/09/2013 [facility] Systolic (mm Hg) 143 03/09/2013 [facility] Respitory Rate 18 03/09/2013 [facility] Diastolic (mm Hg) 81 03/09/2013 [facility] Heart Rate 115 03/09/2013 [facility] Diastolic (mm Hg) 70 03/09/2013 [facility] Systolic (mm Hg) 153 03/09/2013 [facility] Respitory Rate 18 03/09/2013 [facility] Temperature Oral (F) 97.5 F 03/09/2013 [facility] Weight 90 03/07/2013 [facility] Height 162.56 cm 03/07/2013 [facility] Height 162.56 cm 03/06/2013 [facility] Weight 90 03/06/2013 [facility] [place] [facility] Systolic (mm Hg) 127 12/07/2012 [facility] Diastolic (mm Hg) 49 12/07/2012 [facility] Heart Rate 90 12/07/2012 [facility] Temperature Oral (F) 98.3 F 12/07/2012 [facility] Respitory Rate 18 12/07/2012 [facility] Systolic (mm Hg) 104 12/07/2012 [facility] Temperature Oral (F) 98.6 F 12/07/2012 [facility] Respitory Rate 18 12/07/2012 [facility] Heart Rate 78 12/07/2012 [facility] Diastolic (mm Hg) 57 12/07/2012 [facility] Heart Rate 89 12/07/2012 [facility] Temperature Oral (F) 97.6 F 12/07/2012 [facility] Respitory Rate 18 12/07/2012 [facility] Systolic (mm Hg) 105 12/07/2012 [facility] Diastolic (mm Hg) 51 12/07/2012 [facility] Weight 100 11/29/2012 [facility] Height 162.56 cm 11/29/2012 [facility] Weight 100.568 11/29/2012 [facility] Height 162.56 cm 11/29/2012 [facility] Weight 101.364 11/28/2012 [facility] Height 162.56 cm 11/28/2012 [facility] Diastolic (mm Hg) 55 11/17/2012 [facility] Systolic (mm Hg) 117 11/17/2012 [facility] Diastolic (mm Hg) 70 11/17/2012 [facility] Systolic (mm Hg) 118 11/17/2012 [facility] Diastolic (mm Hg) 61 11/17/2012 [facility] Systolic (mm Hg) 154 11/17/2012 [facility] Temperature Oral (F) 97.8 F 11/17/2012 [facility] Temperature Oral (F) 97.9 F 11/17/2012 [facility] Temperature Oral (F) 98.6 F 11/17/2012 [facility] Height 162.56 cm 11/17/2012 [facility] Weight 103.21 11/17/2012 [facility] Respitory Rate 18 11/17/2012 [facility] Height 162.56 cm 11/16/2012 [facility] Weight 100 11/16/2012 [facility] Diastolic (mm Hg) 58 11/14/2012 [facility] Systolic (mm Hg) 121 11/14/2012 [facility] Respitory Rate 20 11/14/2012 [facility] Heart Rate 84 11/14/2012 [facility] Temperature Oral (F) 98.0 F 11/14/2012 [facility] Respitory Rate 20 11/14/2012 [facility] Systolic (mm Hg) 103 11/14/2012 [facility] Diastolic (mm Hg) 54 11/14/2012 [facility] Temperature Oral (F) 98.0 F 11/14/2012 [facility] Heart Rate 83 11/14/2012 [facility] Diastolic (mm Hg) 68 11/14/2012 [facility] Respitory Rate 20 11/14/2012 [facility] Heart Rate 79 11/14/2012 [facility] Systolic (mm Hg) 136 11/14/2012 [facility] Temperature Oral (F) 98.4 F 11/14/2012 [facility] Height 162.56 cm 11/06/2012 [facility] Weight 100 11/06/2012 [facility] Height 162.56 cm 11/06/2012 [facility] Weight 100 11/06/2012 [facility] Height 162.56 cm 11/06/2012 [facility] Weight 104.545 11/06/2012 [facility] Systolic (mm Hg) 131 11/01/2012 [facility] Diastolic (mm Hg) 62 11/01/2012 [facility] Systolic (mm Hg) 125 11/01/2012 [facility] Diastolic (mm Hg) 62 11/01/2012 [facility] Systolic (mm Hg) 155 10/31/2012 [facility] Diastolic (mm Hg) 54 10/31/2012 [facility] Temperature Oral (F) 99.7 F 10/31/2012 [facility] Temperature Oral (F) 96.7 F 10/31/2012 [facility] Temperature Oral (F) 98.1 F 10/31/2012 [facility] Respitory Rate 19 10/31/2012 [facility] Respitory Rate 19 10/31/2012 [facility] Respitory Rate 19 10/31/2012 [facility] Weight 78.2 10/24/2012 [facility] Heart Rate 126 10/23/2012 [facility] Heart Rate 130 10/23/2012 [facility] Weight 113.636 10/23/2012 [facility] Height 162.56 cm 10/23/2012 [facility] Heart Rate 119 10/23/2012 [facility] Height 162.56 cm 10/23/2012 [facility] Systolic (mm Hg) 123 10/08/2012 [facility] Respitory Rate 19 10/08/2012 [facility] Diastolic (mm Hg) 51 10/08/2012 [facility] Heart Rate 81 10/08/2012 [facility] Temperature Oral (F) 98.8 F 10/08/2012 [facility] Diastolic (mm Hg) 55 10/08/2012 [facility] Respitory Rate 20 10/08/2012 [facility] Systolic (mm Hg) 136 10/08/2012 [facility] Heart Rate 82 10/08/2012 [facility] Temperature Oral (F) 98.9 F 10/08/2012 [facility] Diastolic (mm Hg) 47 10/08/2012 [facility] Systolic (mm Hg) 107 10/08/2012 [facility] Temperature Oral (F) 98.1 F 10/08/2012 [facility] Respitory Rate 18 10/08/2012 [facility] Heart Rate 75 10/08/2012 [facility] Weight 118.200 10/03/2012 [facility] Height 162.56 cm 10/03/2012 [facility] Weight 118.182 09/23/2012 [facility] Height 162.56 cm 09/23/2012 [facility] Diastolic (mm Hg) 57 06/28/2012 [facility] Heart Rate 104 06/28/2012 [facility] Respitory Rate 18 06/28/2012 [facility] Systolic (mm Hg) 147 06/28/2012 [facility] Systolic (mm Hg) 153 06/28/2012 [facility] Diastolic (mm Hg) 61 06/28/2012 [facility] Respitory Rate 16 06/28/2012 [facility] Systolic (mm Hg) 136 06/28/2012 [facility] Diastolic (mm Hg) 52 06/28/2012 [facility] Respitory Rate 18 06/28/2012 [facility] Temperature Oral (F) 98.5 F 06/28/2012 [facility] Heart Rate 104 06/28/2012 [facility] Weight 118.182 06/14/2012 [facility] Height 162.56 cm 06/14/2012 [facility] Encounters Location Location Encounter Encounter Reason Attending ADM DC Status Source Details Type Number For Provider Date Date Visit [facility] DS [id number] DSU/ WOLFGANG 06/28 Active [facility] REFLUX SUSHILA /2011 Medical [facility] Inpatient [id number] WOLFGANG 10/03 10/08 Discharg [facility] /2012 ed Medical [facility] Inpatient [id number] N/V DARELL 10/23 11/01 Active [facility] DEHYDRAT SDRINGOLA- /2012 Medical [place] [facility] [id number] LAVONE 11/05 11/14 Discharg [facility] [place] /2012 ed [facility] OU [id number] CHIP 11/16 11/17 Discharg [facility] MARKUS /2012 ed Medical [facility] Inpatient [id number] JUAN J 11/29 12/07 Discharg [facility] BRANDO /2012 ed [facility] OU [id number] SANJUANA 03/07 03/09 Discharg [facility] OSUAGWU /2012 ed Medical [facility] OU [id number] JEANNIE 04/02 04/03 Discharg [facility] ADOLFO /2012 ed [facility] OU [id number] GASTROPA JEANNIE 07/12 07/14 Active [facility] ADOLFO /2012 Medical [facility] JACKIE [id number] WOLFGANG 07/26 07/27 Discharg [facility] /2012 ed Medical [facility] Emergency [id number] KATELYN 08/13 08/13 Discharg [facility] BUBLEWICZ /2012 ed [facility] Center [facility] Outpatient [id number] SERGO [place] Cancel [facility] Procedures Procedure Code Date Perfomer Comments Source section [id number] [facility] Cholecystectomy [id number] [facility] <sup>1</sup> [facility] Hand repair [id number], x'2 [facility] <sup>2</sup> [facility] Tonsillectomy [id number] [facility] <sup>3</sup> [facility] Bypass of stomach [id number] [facility] Rotator cuff repair [id number] [facility] Heart procedure [id number] 1cardiac [facility] <sup>1</sup> stent for [facility] Assessment and Plan No Data Provided for This Section Plan of Care No Data Provided for This Section Social History No Data Provided for This Section Family History No Data Provided for This Section Advance Directives No Data Provided for This Section Functional Status No Data Provided for This Section
--- OUTSIDE RECORDS SUMMARY | 2019-03-13 08:39 | XMS REPORT | CCD ---
:1965 Author Organization [facility] Care Team Providers Name Role Phone Sukhwinder [...]
--- OUTSIDE RECORDS SUMMARY | 2019-03-13 08:40 | XMS REPORT | CCD ---
:1965 Author Organization [facility] Care Team Providers Name Role Phone Sukhwinder Renteria Referring Provider Allergies, Adverse Reactions, Alerts Substance Reaction Status NKDA Active Problem List Condition Effective Dates Status Acid reflux Resolved Anemia Resolved Anxiety Resolved Arthritis Resolved Depression Resolved Diabetes mellitus type 1 Resolved Edema of lower extremity Resolved Fibromyalgia Resolved Hyperlipidemia Resolved Hypertension Resolved Medications Medication Instructions Start Date End Date Status Zebulon 325 mg-10 mg / 15 mL, Route: [...] Duration: 30 day, Stop date: 11/02/12 10:59:00 Zebulon 325 mg-10 mg / 30 mL, Route: PO, 10/04/2012 10/05/2012 Discontinued 15 mL oral solution Drug Form: SOLN, Dosing Weight 118.2, kg, Q4H, PRN Pain Score 6-10, Start date: 10/04/12 17:20:00, Duration: 30 day, Stop date: 11/03/12 17:19:00 Zebulon 325 mg-10 mg / 15 mL, Route: [...] 14:28:00, PRN Blood Glucose Results Blistex Lip [place] Route: TOP, Dosing 10/06/2012 10/06/2012 Deleted Weight [...] /LPF] Few /LPF *NA* (10/06/2012 11:42:00) [facility] [place] Yeast [None Seen /HPF] Moderate /HPF *ABN* [...] values reflect the clinical guidelines of the [place] [employer].8Interpretive Data: Adult reference range values reflect the clinical guidelines of the [place] [employer].9Interpretive Data: Adult reference range values reflect the clinical guidelines of the [place] [employer].HEMATOLOGY Most recent to oldest 1 [...] Catch FREE TEXT SOURCE: FINAL REPORTS Final Hepsno53,000 - 50,000 CFU/mL Enterococcus SpeciesPRELIMINARY REPORTS Preliminary Fvikqu97,000 - 50,000 CFU/ mL Enterococcus Species ; Sensitivity PendingSUSCEPTIBILITY REPORT ENTERO Antibiotic INTERP. VDIL Ampicillin S Levofloxacin S Nitrofurantoin S Tetracycline R Vancomycin S Procedures Procedures Date Related Diagnosis section Cholecystectomy 1 Hand repair 2 Tonsillectomy 3 , [id number]
--- OUTSIDE RECORDS SUMMARY | 2019-03-13 08:41 | XMS REPORT | CCD ---
:1965 Author Organization [facility] Care Team Providers Name Role [...] Hypertension Resolved MRSA1, 2 10/23/2012 Active 1nares 10/23/201220435Orwypiv added by Discern Expert. Medications Medication Instructions [...] Duration: 30 day, Stop date: 12/06/12 1:48:00 [place] 5/325 oral tablet 1 tab, PO, Q6H, [...] Duration: 30 day, Stop date: 12/08/12 10:44:00 [place] 5/325 oral tablet 1 tab, Route: PO, [...] INJ, Q2H, Dosing Weight 100, kg, Total cefe=1982 mg, Start date: 11/14/12 8:00:00, Duration: 2 [...] 11/08/2012 11/08/2012 Canceled PO, Drug form: TAB, [id number], Dosing Weight 100, kg, Start date: 11/08/12 [...] [Negative] Negative 1 (11/12/2012 21:54:26) 1Interpretive Data: Appniqueigene Clostridium difficile assay utilizes loop-mediated isothermalDNA amplification (LAMP) technology to detect a 204 bp region of the tcdA gene within the PaLoc genesegment present in all known toxigenic C. difficile strains. The assay utilizes FDA cleared IVD reagents. Performance characteristics have been verified by the Molecular Diagnostic Laboratory within the [facility]. The Molecular Diagnostic Laboratory is authorized [...] values reflect the clinical guidelines of the [place] [employer].10Interpretive Data: Adult reference range values reflect the clinical guidelines of the [employer] [employer].11Result Comment: rechecked Critical Result (s) called leslie Conner Rose at 11/12/2012 02:56:37 WASTE DISPOSAL ATTENDANT by_mgm. Read back OK.12Interpretive Data: Adult reference range values reflect the clinical guidelines of the [employer] [employer].13Result Comment: Critical Result(s) called to [...] 10.0 240 Poor Control, take action to ctmde34Dmlaoc Comment : Critical Result(s) called leslie Rose [...] Catch FREE TEXT SOURCE: FINAL REPORTS Final Iktskg87,000 - 100,000 CFU/mL Enterococcus SpeciesPRELIMINARY REPORTS Preliminary Zcosso76,000 - 100,000 CFU/ mL Enterococcus Species Identification And Sensitivity PendingSUSCEPTIBILITY REPORT ENTERO Antibiotic INTERP. VDIL Ampicillin S Levofloxacin S Nitrofurantoin S Tetracycline R Vancomycin S
--- OUTSIDE RECORDS SUMMARY | 2019-03-13 08:42 | XMS REPORT | CCD ---
:1965 Author Organization [facility] Care Team Providers Name Role Phone Nikhil Hager Consulting Provider Sukhwinder Renteria Consulting Provider Allergies, Adverse Reactions, Alerts Substance Reaction Status NKDA Active Problem List Condition Effective Dates Status Acid reflux Resolved Anemia Resolved Anxiety Resolved Arthritis Resolved Depression Resolved Diabetes mellitus type 1 Resolved Edema of lower extremity Resolved Fibromyalgia Resolved Hyperlipidemia Resolved Hypertension Resolved MRSA1, 2 10/23/2012 Active 1nares 10/23/201262106Mssxjyf added by Discern Expert. Medications Medication Instructions [...] mg, 1 supp, 10/23/2012 11/01/2012 Discontinued Route: UT, Drug form: SUPP, Q6H, Dosing Weight 113.636, kg, PRN Fever, Start date: 10/23/12 0:37:00, Duration: 30 day, Stop date: 11/22/12 0:36:00 Visipaque 320mg/ml 126 mL, Route: IVP, Drug Form: SOLN, Dosing Weight 113.636 , kg, ONCALL, STAT, Start date: 10/23/12 16:52:00, Duration: 1 doses or times, Dose=2.2ml/kg, Max ofwg=084ib -- "To be infused by Radiology Staff ONLY" 10/2310/23/2012 Completed Dose=2.2ml/kg, Max wwsp=512da -- "To be infused by Radiology Staff [...] mg, 1 supp, 10/24/2012 10/24/2012 Deleted Route: UT, Drug form: SUPP, ONCE, Dosing Weight 78.2, [...] Duration: 1 doses or times, Dose=2.2ml/kg, Max qwpy=895kk -- "To be infused by Radiology Staff ONLY" 10/2310/23/2012 Completed Dose=2.2ml/kg, Max htzs=089zt -- "To be infused by Radiology Staff [...] the clinical guidelines of the [place] [employer].11Interpretive Data: Adult reference range values reflect the clinical guidelines of the [place] [employer].12Interpretive Data: Adult reference range values reflect the clinical guidelines of the [place] [employer].13Interpretive Data: Reference range is based on recommendations in the Endocrine Society Clinical Practice Guideline (J Clin Endocrinol Metab 2011;96:1783-4404)14Result Comment: Specimen Moderately Hemolyzed.15Result Comment: Critical Result(s) called to daisy otoole at 10/25/2012 01:18:09 PREMIUM AUDITOR by tac. Read back OK.16Result Comment: Critical Result(s) called to Maribel Bustos at 10/24/2012 13:23:46 PREMIUM AUDITOR by lwb . Readback OK.17Result Comment: Critical Result(s) called to Lyn King at 10/24/2012 09:52:38 PREMIUM AUDITOR by lwb . Read back OK.18Result Comment: Critical Result(s) called to Jelani Rasmussen at 10/25/2012 00: 47:48 PREMIUM AUDITOR by RM. Read back OK.19Result Comment: Critical Result(s) called to mariana bustos at _ 10/24/2012 13:37:22 CSTby_lss. Readback OK.20Result Comment : Critical Result(s) called to romero beltre at _10/24/2012 09:50:18 PREMIUM AUDITOR by_lss. Read back OK.21Interpretive Data: HbA1C% eAG(mg/dL) [...] Data: Heparin Therapeutic Range: 57 - 92 Rerfwbc30Cnaigbcsdlwg Data: Heparin Therapeutic Range: 57 - 92 Racwgwq73Kwnfibdgldnc Data: Heparin Therapeutic Range: 57 - 92 Seconds Microbiology Reports PROCEDURE:Culture: Urine STATUS: Auth (Verified) BODY SITE: COLLECTED DATE/TIME: 10/23/2012 20:33:00 SOURCE: Urine,Straight Cath FREE TEXT SOURCE: FINAL REPORTS Final Pqpktc92,000 - 100,000 CFU/mL Gram Negative Rods , Lactose Fermenters , 2 [place] Types 50,000 - 100,000 CFU/mL Enterococcus Species [...]
--- OUTSIDE RECORDS SUMMARY | 2019-03-13 08:43 | XMS REPORT | CCD ---
[...] Hypertension Resolved MRSA1, 2 10/23/2012 Active 1nares 10/23/201278538Valssxm added by Discern Expert. Medications Medication Instructions [...] 1 doses or times, Dose= 2.2ml/kg, Max devp=740pj -- "To be infused by Radiology Staff ONLY" 201211/16/2012 Discontinued Dose=2.2ml/kg, Max uhun=947hh -- "To be infused by Radiology Staff ONLY" calcium gluconate + Sodium 2,000 mg, 20 mL, Route: 11/17/2012 11/17/2012 Completed Chloride 0.9% IV 80 mL IVPB, ONCE, Dosing Weight 103.21, kg, Start date: 11/17/12 11:02:00, Stop date: 11/17/12 11:02:00 enoxaparin 40 mg, 0.4 mL, Route: 11/16/2012 11/17/2012 Discontinued SUB-Q, Drug form: INJ, [id number], Dosing Weight 100, kg, Start date: 11/16/12 [...] date: 11/16/12 13:40:00, Stop date: 11/16/12 13:40:00 [place] 5/325 oral tablet 1 tab, Route: PO, [...] values reflect the clinical guidelines of the [place] [employer].7Interpretive Data: Adult reference range values reflect the clinical guidelines of the [place] [employer].HEMATOLOGY Most recent to oldest [Reference [...]
[2019-03-13] MEDS ORDERED: INSULIN -REGULAR HUMAN 50 UNIT/0.5 ML ML ONE ×2 (08:44→22:19)
--- OUTSIDE RECORDS SUMMARY | 2019-03-13 08:45 | XMS REPORT | CCD ---
[...] Resolved Fibromyalgia Resolved Hyperlipidemia Resolved Hypertension Resolved [place] - Myocardial infarction 10/22/2012 Resolved MRSA1, 2, 3, 4 10/23/2012 Active Neuropathy Resolved - Nares - Swhgi7rbqdq 10/23/201219693Ljftbrn added by Discern Expert. Medications Medication Instructions [...] IVPB, Drug 12/02/2012 12/02/2012 Discontinued form: PDR/INJ, [id number], Dosing Weight 100, kg, Start date: 12/02/12 [...] 11/29/2012 11/29/2012 Discontinued SUB-Q, Drug form: INJ, kixyO91D, Dosing Weight 101.364, kg, Start date: 11/29/12 [...] mg, 1 supp, Route: 12/04/2012 12/07/2012 Discontinued HI, Drug form: SUPP, Q4H, Dosing Weight 100, [...] date: 12/04/12 23:39:00, Stop date: 12/04/12 23:39:00 [place] 7.5/325 oral tablet 1 tab, Route: PO, [...] IVPB, Drug 11/29/2012 12/01/2012 Discontinued form: PDR/INJ, ICEF03U, Dosing Weight 100, kg, Start date: 11/29/12 [...] 7:47:00 Phenergan 25 mg rectal 1 supp, HI, Q6H, PRN, 9 11/29/2012 Ordered suppository supp, [...] by the Molecular Diagnostic Laboratory within the [facility]. The Molecular Diagnostic Laboratory is [...] values reflect the clinical guidelines of the [place] [employer].11Interpretive Data: Adult reference range values reflect the clinical guidelines of the [place] [employer].12Interpretive Data: Adult reference range values reflect the clinical guidelines of the [place] [employer].13Interpretive Data: No established reference ranges.14Interpretive [...] Data: Heparin Therapeutic Range: 57 - 92 Eixetpb91Vmntemhuaiyz Data: Heparin Therapeutic Range: 57 - 92 [...] Catch FREE TEXT SOURCE: FINAL REPORTS Final Xkybuc70,000 - 50,000 CFU/mL Yeast <10,000 CFU/mL Skin SePRELIMINARY REPORTS Preliminary ReportNo Growth; Holding Procedures Procedures Date Related Diagnosis Heart procedure 1 1cardiac stent for [place]
--- OUTSIDE RECORDS SUMMARY | 2019-03-13 08:46 | XMS REPORT | CCD ---
:[address] [facility] Care Team Providers Name Role Phone Alberto [...] 10/23/2012 Active Neuropathy Resolved - Nares - Lqxkm4fwmff 10/23/201264092Lzomrfn added by Discern Expert. Medications Medication Instructions [...] values reflect the clinical guidelines of the [place] [employer].7Interpretive Data: Adult reference range values reflect the clinical guidelines of the [place] [employer].HEMATOLOGY Most recent to oldest [Reference [...]
--- OUTSIDE RECORDS SUMMARY | 2019-03-13 08:46 | XMS REPORT | CCD ---
:1965 Author Organization [facility] Care Team Providers Name Role Phone Sukhwinder Renteria Referring Provider Allergies, Adverse Reactions, Alerts Substance Reaction Status NKDA Active Problem List Condition Effective Dates Status Acid reflux Resolved Anemia Resolved Anxiety Resolved Arthritis Resolved Depression Resolved Diabetes mellitus type 1 Resolved Edema of lower extremity Resolved Fibromyalgia Resolved Gastric ulcer Resolved Hyperlipidemia Resolved Hypertension Resolved [place] - Myocardial infarction 10/22/2012 Resolved MRSA1, 2, 3, 4 10/23/2012 Active Neuropathy Resolved - Nares - Rnyvg5oyive 10/23/201294524Mjypqpy added by Discern Expert. Medications Medication Instructions [...]
--- OUTSIDE RECORDS SUMMARY | 2019-03-13 08:46 | XMS REPORT | CCD ---
:1965 Author Organization [facility] Care Team Providers Name Role Phone JohnbeckiReno [...] 10/23/2012 Active Neuropathy Resolved - Nares/ - Gpena6weary 10/23/201281844Uxnvrag added by Discern Expert. Medications Medication Instructions [...] 03/08/13 3:17:00, Stop date: 03/08/13 3:17:00 lidocaine-epi 1%-1:899244 1 ml, Route: SUB-Q, Drug 03/07/2013 03/07/2013 [...] date: 03/07/13 2:35:00, Stop date: 03/07/13 2:35:00 [place] 5/325 oral tablet 1 tab, PO, Q6H, [...] Results BEDSIDE GLUCOSE TESTING Most recent to [facility] 1 2 3 [Reference Range]: Gluc [...] Reportable Limit: 200 mg/dL.URINALYSIS Most recent to [facility] [Reference Range]: 1 2 3 UA [...] values reflect the clinical guidelines of the [place] [employer].8Interpretive Data: Adult reference range values reflect the clinical guidelines of the [place] [employer].9Interpretive Data: Adult reference range values reflect the clinical guidelines of the [place] [employer].HEMATOLOGY Most recent to oldest 1 [...]
--- OUTSIDE RECORDS SUMMARY | 2019-03-13 08:47 | XMS REPORT | CCD ---
[...] 10/23/2012 Active Neuropathy Resolved - Nares - Mxfpq3wdynd 10/23/201264178Oifkkjo added by Discern Expert. Medications Medication Instructions [...] the clinical guidelines of the [place] Diabetes [employer].HEMATOLOGY Most recent to oldest [Reference [...]
--- OUTSIDE RECORDS SUMMARY | 2019-03-13 08:47 | XMS REPORT | CCD ---
:1965 Author Organization [facility] Care Team Providers Name Role Phone Alberto Matavor Consulting Provider Allergies, Adverse Reactions, Alerts Substance Reaction Status NKDA Active Problem List Condition Effective Dates Status Acid reflux Resolved Anemia Resolved Anxiety Resolved Arthritis Resolved Depression Resolved Diabetes mellitus type 1 Resolved Edema of lower extremity Resolved Fibromyalgia Resolved Gastric ulcer Resolved Hyperlipidemia Resolved Hypertension Resolved [place] - Myocardial infarction 10/22/2012 Resolved MRSA1, 2, 3, 4 10/23/2012 Active Neuropathy Resolved - Nares - Xjtud4eewte 10/23/201254219Hqujrjb added by Discern Expert. Medications Medication Instructions Start Date End Date Status acetaminophen-hydrocod 1 tab, Route: PO, Drug Form: 07/12/2013 07/14/2013 Discontinued one 325 mg-5 mg oral TAB, Dosing Weight 86.364, tablet kg, Q4H, PRN Pain, Start date: 07/12/13 18:23:00, Duration: 30 day, Stop date: 08/11/13 18:22:00(Same as: [place] 325/5) Do not exceed 4gm/day of acetaminophen. [...] 1 doses or times, Dose =2.2ml/kg, Max fcet=676qo -- "To be infused by Radiology Staff ONLY" 201207/12/2013 Completed Dose=2.2ml/kg, Max foxf=261ds -- "To be infused by Radiology Staff [...] day, Stop date: 08/11/13 9:00:00(Same as: Lopressor) [place] 5/325 oral 1 tab, Route: PO, Dosing [...] date: 08/11/13 9:00:00(Same as: Mag-Ox 400)Magnesium oxide 521ds=695vb elemental magnesiumDose=____mg magnesium oxide (___mg elemental magnesium) [...] [Negative] Negative 1 (07/13/2013 00:00:59) 1Interpretive Data: iWOPI illumigene Clostridium difficile assay utilizes loop-mediated isothermalDNA amplification (LAMP) technology to detect a 204 bp region of the tcdA gene within the PaLoc genesegment present in all known toxigenic C. difficile strains. The assay utilizes FDA cleared IVD reagents. Performance characteristics have been verified by the Molecular Diagnostic Laboratory within the [facility]. The [facility] Laboratory is authorized [...] /LPF] Many /LPF *ABN* (07/12/2013 03:00:00) UA [place] Yeast [None Seen /HPF] Moderate /HPF *ABN* [...] the clinical guidelines of the [place] Diabetes [employer].9Interpretive Data: Adult reference range values reflect the clinical guidelines of the [place] Diabetes [employer].10Interpretive Data: Adult reference range values [...] to oldest [Reference Range]: 1 2 3 [place]-HIV 1/2 Ab [Negative] Negative *NA* (07/14/2013 00:27:00) [place]-Hep C Ab [Negative] Negative *NA* (07/14/2013 00:27:00) CDC-HIV 1/2 Ab [Negative] Negative *NA* (07/12/2013 16:02:06)
--- OUTSIDE RECORDS SUMMARY | 2019-03-13 08:47 | XMS REPORT ---
:1965 Author Organization [facility] Address [address] [place] [address] [address] [place] [address] Care Team Providers Name Role Phone SHANI [...] (BEAKER) (test 211 mg/dL 70-110 TESTED AT [address] pofe=[id number]) [place] [id number] POCT-GLUCOSE [id number] 13:04:00 Test Item Value Reference Range Comments POC-GLUCOSE METER (BEAKER) 282 mg/dL 70-110 TESTED AT [address] (test zbrm=2807) [place] [id number] POCT-GLUCOSE [id number] 14:35:00 Test Item Value Reference Range Comments POC-GLUCOSE METER (BEAKER) 200 mg/dL 70-110 TESTED AT [address] (test pjup=4515) [place] [address] [id number] 12:24:00 Test Item Value Reference Range Comments SODIUM (BEAKER) (test hswr=354) 136 meq/L 136-145 POTASSIUM (BEAKER) (test quat=084) 5.4 meq/L 3.5-5.1 CHLORIDE (BEAKER) (test eheb=621) 102 meq/L 98-107 CO2 (BEAKER) (test xiso=311) 25 meq/L 22-29 [id number] 12:24:00 Test Item Value Reference Range Comments GLUCOSE RANDOM (BEAKER) (test nqtq=564) 353 mg/dL 70-105 BUN AND [id number] 12:24:00 Test Item Value Reference Range Comments BLOOD UREA NITROGEN 14 mg/dL 7-21 ([facility]) (test rcsv=130) CREATININE ([facility]) (test 1.08 mg/dL 0.57-1.25 ivtg=856) EGFR ([facility]) (test 53 mL/min/1.73 sq m ESTIMATED GFR IS NOT npqa=4228) ACCURATE CREATININE CLEARANCE IN PREDICTING GLOMERULAR FILTRATION RATE. ESTIMATED GFR IS NOT APPLICABLE FOR DIALYSIS PATIENTS. POCT-HEMOGLOBIN [id number] 11:43:00 Test Item Value Reference Range Comments POC-HEMOGLOBIN METER 12.1 g/dL 12.0-15.[address] ([facility]) (test rxde=1760) [place] [address] POCT-GLUCOSE [id number] 11:43:00 Test Item Value Reference Range Comments POC-GLUCOSE METER ([facility]) 320 mg/dL 70-110 Verify with Lab draw/TESTED AT (test zdly=4506) [place] [id number] [address] [place] [address]
[2019-03-13] MEDS ORDERED: KCL 20 MEQ/100 mL IVPB 20 MEQ/100 ML BAG IV ONE (08:49)
--- NOTE | 2019-03-13 09:17 | RAD REPORT ---
EXAM DESCRIPTION: RAD - Chest Single View - 03/13/2019 7:54 am CLINICAL HISTORY: Abdominal pain, shortness of breath COMPARISON: February 25 TECHNIQUE: AP portable chest image was obtained 0749 hours . FINDINGS: No focal mass, consolidation or failure finding. Lung markings match the comparison. Trach ea is midline. Heart and vasculature are normal. No measurable pleural effusion and no pneumothorax. No acute bony abnormality seen. No acute aortic findings suspected. IMPRESSION: No acute cardiopulmonary process. Chronic interstitial changes match the prior study.
--- NOTE | 2019-03-13 10:10 | ER ---
Nurse's Notes [facility] Name: Ila Pérez Age: 53 yrs Sex: Female : 1965 Arrival Date: 03/13/2019 Time: 06:37 Bed 3 Private MD: Fabián Guerra E Diagnosis: Hyperglycemia, unspecified;Altered mental status, unspecified Presentation: 03/13 07:01 Presenting complaint: states: n/v x 1 day. Transition of care: patient was not sv received from another setting of care. Onset of symptoms was March 12, 2019. Risk Assessment: Do you want to hurt yourself or someone else? Patient reports no desire to harm self or others. Initial Sepsis Screen: Does the patient meet any 2 criteria? HR > 90 bpm. No. Patient's initial sepsis screen is negative. Does the patient have a suspected source of infection? No. Patient's initial sepsis screen is negative. Care prior to arrival: None. 07:01 Method Of Arrival: Wheelchair sv 07:01 Acuity: DEVONTE 2 sv Triage Assessment: 07:01 General: Appears in no apparent distress. uncomfortable, unkempt, Behavior is anxious, sv uncooperative. Pain: Denies pain. Neuro: Level of Consciousness is confused, lethargic, Oriented to person, Moves all extremities. Full function. Cardiovascular: Patient's skin is warm and dry. Rhythm is sinus tachycardia Chest pain is denied. Respiratory: Respiratory effort is even, unlabored, Respiratory pattern is regular, symmetrical. GI: Abdomen is round Abd is soft and non tender X 4 quads. Parent/caregiver reports the patient having nausea, vomiting. Derm: Skin is normal, Bruising that is dark purple, on BLE. Musculoskeletal: Range of motion: intact in all extremities. Historical: - Allergies: 07:12 Gluten Protein; sv - PMHx: 07:12 Anxiety; Arthritis; Chronic pain; Esophagitis; Depression; Diabetes - IDDM; sv Fibromyalgia; Gastroparesis; GERD; heart disease; High Cholesterol; Hypertension; Myocardial infarction; neuropathy; raynaud's; sleep disorder; Tachycardia; TBI; - Immunization history:: Adult Immunizations up to date. - Social history:: Smoking status: Patient/guardian denies using tobacco. - Ebola Screening: : No symptoms or risks identified at this time. Screenin:15 Abuse screen: Denies threats or abuse. Denies injuries from another. Nutritional sv screening: No deficits noted. Tuberculosis screening: No symptoms or risk factors identified. Fall Risk None identified. Assessment: 08:11 Reassessment: Patient appears in no apparent distress at this time. No changes from sv previously documented assessment. Patient and/or family updated on plan of care and expected duration. Pain level reassessed. Patient states symptoms have not improved. GI: Reports nausea. 08:45 Reassessment: Patient appears in no apparent distress at this time. Patient and/or sv family updated on plan of care and expected duration. Pain level reassessed. Pt incontinent of urine and bowel. Pt cleaned up and linen changed. 08:53 Reassessment: Patient appears in no apparent distress at this time. No changes from sv previously documented assessment. Patient and/or family updated on plan of care and expected duration. Pain level reassessed. 09:40 Reassessment: Patient appears in no apparent distress at this time. Patient and/or sv family updated on plan of care and expected duration. Pain level reassessed. Pt placed on bedpan, cleaned of incontinence. Linen changed and placed a clean brief. 11:38 Reassessment: Patient appears in no apparent distress at this time. No changes from sv previously documented assessment. Patient and/or family updated on plan of care and expected duration. Pain level reassessed. 12:30 Reassessment: Patient appears in no apparent distress at this time. No changes from sv previously documented assessment. Patient and/or family updated on plan of care and expected duration. Pain level reassessed. 13:10 Reassessment: Patient appears in no apparent distress at this time. No changes from sv previously documented assessment. Patient and/or family updated on plan of care and expected duration. Pain level reassessed. Vital Signs: 07:08 BP 177 / 73; Pulse 118 MON; Resp 20; Temp 99; Pulse Ox 100% ; Weight 83 kg; Height 5 sv ft. 4 in. (162.56 cm); Pain 0/10; 08:07 BP 175 / 73; Pulse 125; Resp 28; Pulse Ox 100% ; sv 08:58 BP 181 / 76; Pulse 125; Resp 15; Pulse Ox 100% on R/A; sv 09:58 BP 156 / 64; Pulse 125 MON; Resp 14; Pulse Ox 99% on R/A; sv 10:29 BP 174 / 74; Pulse 129; Resp 13; Pulse Ox 100% on R/A; sv 11:38 BP 169 / 69; Pulse 126; Resp 22; Pulse Ox 100% on R/A; sv 12:00 BP 169 / 72; Pulse 123; Resp 18; Pulse Ox 100% on R/A; sv 13:00 BP 169 / 69; Pulse 123; Resp 18; Pulse Ox 100% on R/A; sv 07:08 Body Mass Index 31.41 (83.00 kg, 162.56 cm) sv 07:08 Sinus tachycardia sv 09:58 Sinus tachycardia sv ED Course: 06:37 Patient arrived in ED. am2 06:37 Fabián Guerra MD is Private Physician. am2 07:00 Joie Yañez RN is Primary Nurse. sv 07:10 Triage completed. sv 07:10 Patient has correct armband on for positive identification. Bed in low position. Call sv light in reach. Side rails up X2. Adult w/ patient. sign maker on. Pulse ox on. NIBP on. Door closed. Warm blanket given. Head of bed elevated. 07:13 Michael Omalley MD is Attending Physician. ps1 07:15 Arm band placed on. sv 07:18 Missed attempt(s): 18 gauge in left upper arm. midline attempted by Dariela SOLIZ.. sv Bleeding controlled, band aid applied, catheter tip intact. 07:25 Inserted 18 gauge 10 cm midline to right upper basilic vein on second attempt. Line fc with good blood return and flushes well. Blood collected. 07:49 X-ray completed. Portable x-ray completed in exam room. Patient tolerated procedure sw well. 07:51 CXR XRAY In Process Unspecified. EDMS 08:30 IV is patent, is intact, with fluids infusing freely. sv 10:09 David Wylie DO is Hospitalizing Provider. ps1 10:21 Morris cath inserted, using sterile technique, 16 Fr., by co, balloon inflated, to sv gravity drainage, urine specimen collected. returned clear yellow urine. Patient tolerated well. 10:21 IV is patent, is intact, with fluids infusing freely. sv 10:28 Urine Dipstick--Ancillary (enter results) Sent. sv 10:28 Urine Microscopic Only Sent. sv 13:14 No provider procedures requiring assistance completed. Patient admitted, IV remains in sv place. intact. 15:23 CDIFF Sent. sv 15:23 Stool Culture Sent. sv Administered Medications: 07:38 Drug: Zofran 4 mg Route: IVP; Site: right upper arm; sv 07:54 Follow up: Response: No adverse reaction; Marked relief of symptoms; Nausea is decreasedsv 07:39 Drug: NS 0.9% (20 ml/kg) 20 ml/kg Route: IV; Rate: 1 bolus; Site: right upper arm; sv 11:00 Follow up: Response: No adverse reaction; IV Status: Completed infusion; IV Intake: sv 1700ml 08:11 Drug: Reglan 10 mg Route: IVP; Site: right upper arm; sv 08:53 Follow up: Response: No adverse reaction sv 08:32 Drug: Insulin Regular Human 10 units {Co-Signature: aa5 (Jinny Pantoja RN).} Route: sv Sub-Q; Site: left lower abdomen; 09:15 Follow up: Response: No adverse reaction; Blood sugar is lowered sv 08:53 Drug: Potassium Chloride 20 mEq Route: IV; Rate: calculated rate; Site: right upper arm;sv 11:00 Follow up: Response: No adverse reaction; IV Status: Completed infusion; IV Intake: sv 100ml 11:38 Drug: NS 0.9% 1000 ml Route: IV; Rate: 1000 ml; Site: right upper arm; sv 12:30 Follow up: Response: No adverse reaction; IV Status: Completed infusion; IV Intake: sv 1000ml Point of Care Testing: Blood Glucose: 07:10 Blood Glucose: 488 mg/dL; sv 09:37 Blood Glucose: 459 mg/dL; sv 11:38 Blood Glucose: 348 mg/dL; sv Ranges: Intake: 11:00 IV: 100ml; Total: 100ml. sv 11:00 IV: 1700ml; Total: 1800ml. sv 12:30 IV: 1000ml; Total: 2800ml. sv Outcome: 10:10 Decision to Hospitalize by Provider. ps1 13:14 Admitted to Tele accompanied by tech, via stretcher, room 201, with chart, Report sv called to Lizzy SOLIZ 13:14 Condition: stable 13:14 Instructed on the need for admit. 13:28 Patient left the ED. sv Signatures: Dispatcher ValentínJoie Young RN RN sv Nora Morales RN RN Trista Shin Erendira Dao [facility] Michael Omalley MD MD ps1 Jinny Pantoja RN aa5 Corrections: (The following items were deleted from the chart) 07:39 07:08 BP 177 / 73; Pulse 118bpm; Resp 20bpm; Pulse Ox 100%; Temp 99F; Pain 0/10; sv sv 09:58 07:08 BP 177 / 73; Pulse 118bpm; Resp 20bpm; Pulse Ox 100%; Temp 99F; 83 kg; Height 5 sv ft. 4 in.; BMI: 31.4; Pain 0/10; sv
--- NOTE | 2019-03-13 10:10 | EDPHYS ---
Physician Documentation [facility] Name: Ila Pérez Age: 53 yrs Sex: Female : 1965 Arrival Date: 03/13/2019 Time: 06:37 Bed 3 Private MD: Fabián Guerra E ED Physician Michael Omalley HPI: 03/13 07:16 This 53 yrs old Female presents to ER via Wheelchair with complaints of ps1 Vomiting. 07:16 patient presenting with hyperglycemia >488. Hx IDDM type 1. Poorly controlled insulin. ps1 Multiple hospitalizations for same. Patient not providing history 2/2 altered mental status. Family at bedside states she is knowledgeable about insulin but concerned about compliance. Kussmaul breathing. Tachycardia. . Historical: - Allergies: 07:12 Gluten Protein; sv - PMHx: 07:12 Anxiety; Arthritis; Chronic pain; Esophagitis; Depression; Diabetes - IDDM; sv Fibromyalgia; Gastroparesis; GERD; heart disease; High Cholesterol; Hypertension; Myocardial infarction; neuropathy; raynaud's; sleep disorder; Tachycardia; TBI; - Immunization history:: Adult Immunizations up to date. - Social history:: Smoking status: Patient/guardian denies using tobacco. - Ebola Screening: : No symptoms or risks identified at this time. ROS: 07:16 Unable to obtain ROS due to altered mental status. ps1 Exam: 07:16 Head/Face: Normocephalic, atraumatic. Eyes: Pupils equal round and reactive to light, ps1 extra-ocular motions intact. Lids and lashes normal. Conjunctiva and sclera are non-icteric and not injected. ENT: Nares patent. No nasal discharge, no septal abnormalities noted. Tympanic membranes are normal and external auditory canals are clear. Oropharynx with no redness, swelling, or masses, exudates, or evidence of obstruction, uvula midline. Mucous membranes moist. Neck: Trachea midline, no thyromegaly or masses palpated, and no cervical lymphadenopathy. Supple, full range of motion without nuchal rigidity, or vertebral point tenderness. No Meningismus. 07:16 Abdomen/GI: Soft, non-tender, with normal bowel sounds. No distension or tympany. No guarding or rebound. No evidence of tenderness throughout. Skin: Warm, dry with normal turgor. Normal color with no rashes, no lesions, and no evidence of cellulitis. 07:16 Constitutional: The patient appears in no acute distress, alert, listless. 07:16 Cardiovascular: Rate: tachycardic, Rhythm: regular, Pulses: no pulse deficits are appreciated. 07:16 Respiratory: mild respiratory distress is noted, Respirations: tachypnea, that is moderate, Breath sounds: are clear throughout. 07:16 Neuro: Orientation: Not oriented to person, place, time, Mentation: confused, Memory: recent memory is impaired. Vital Signs: 07:08 BP 177 / 73; Pulse 118 MON; Resp 20; Temp 99; Pulse Ox 100% ; Weight 83 kg; Height 5 sv ft. 4 in. (162.56 cm); Pain 0/10; 08:07 BP 175 / 73; Pulse 125; Resp 28; Pulse Ox 100% ; sv 08:58 BP 181 / 76; Pulse 125; Resp 15; Pulse Ox 100% on R/A; sv 09:58 BP 156 / 64; Pulse 125 MON; Resp 14; Pulse Ox 99% on R/A; sv 10:29 BP 174 / 74; Pulse 129; Resp 13; Pulse Ox 100% on R/A; sv 11:38 BP 169 / 69; Pulse 126; Resp 22; Pulse Ox 100% on R/A; sv 12:00 BP 169 / 72; Pulse 123; Resp 18; Pulse Ox 100% on R/A; sv 13:00 BP 169 / 69; Pulse 123; Resp 18; Pulse Ox 100% on R/A; sv 07:08 Body Mass Index 31.41 (83.00 kg, 162.56 cm) sv 07:08 Sinus tachycardia sv 09:58 Sinus tachycardia sv MDM: 07:22 Patient medically screened. ps1 08 07:08 Order name: Basic Metabolic Panel; Complete Time: 08:23 sv 08 07:08 Order name: CBC with Diff; Complete Time: 11:15 sv 08 07:08 Order name: Creatinine for Radiology; Complete Time: 08:08 sv 08 07:08 Order name: Hepatic Function; Complete Time: 08:23 sv 03/13 07:08 Order name: Lipase; Complete Time: 08:23 sv 03/13 07:08 Order name: Glucose, Ancillary Testing; Complete Time: 07:22 EDMS 03/13 07:14 Order name: ABG; Complete Time: 08:26 ps1 03/13 09:37 Order name: Glucose; Complete Time: 10:29 sv 03/13 09:43 Order name: Glucose, Ancillary Testing; Complete Time: 10:29 EDMS 03/13 10:24 Order name: Urine Microscopic Only em1 03/13 10:25 Order name: Urine Dipstick--Ancillary (enter results) em1 03/13 10:28 Order name: Stool Culture sv 03/13 10:28 Order name: CDIFF sv 03/13 10:35 Order name: CBC Smear Scan; Complete Time: 11:15 EDMS 03/13 07:08 Order name: IV Saline Lock; Complete Time: 07:39 sv 03/13 07:08 Order name: Labs collected and sent; Complete Time: 07:39 sv 03/13 07:16 Order name: Urine Dipstick-Ancillary (obtain specimen); Complete Time: 10:22 ps1 03/13 07:16 Order name: CXR XRAY; Complete Time: 10:29 ps1 03/13 10:22 Order name: Morris; Complete Time: 10:22 sv 03/13 10:43 Order name: Urine Dipstick-Ancillary; Complete Time: 11:15 EDMS 03/13 11:11 Order name: Urine Microscopic Only; Complete Time: 11:15 EDMS 03/13 13:08 Order name: Urine Drug Screen EDMS 03/13 13:14 Order name: Basic Metabolic Panel EDMS Administered Medications: 07:38 Drug: Zofran 4 mg Route: IVP; Site: right upper arm; sv 07:54 Follow up: Response: No adverse reaction; Marked relief of symptoms; Nausea is decreasedsv 07:39 Drug: NS 0.9% (20 ml/kg) 20 ml/kg Route: IV; Rate: 1 bolus; Site: right upper arm; sv 11:00 Follow up: Response: No adverse reaction; IV Status: Completed infusion; IV Intake: sv 1700ml 08:11 Drug: Reglan 10 mg Route: IVP; Site: right upper arm; sv 08:53 Follow up: Response: No adverse reaction sv 08:32 Drug: Insulin Regular Human 10 units {Co-Signature: aa5 (Jinny Pantoja RN).} Route: sv Sub-Q; Site: left lower abdomen; 09:15 Follow up: Response: No adverse reaction; Blood sugar is lowered sv 08:53 Drug: Potassium Chloride 20 mEq Route: IV; Rate: calculated rate; Site: right upper arm;sv 11:00 Follow up: Response: No adverse reaction; IV Status: Completed infusion; IV Intake: sv 100ml 11:38 Drug: NS 0.9% 1000 ml Route: IV; Rate: 1000 ml; Site: right upper arm; sv 12:30 Follow up: Response: No adverse reaction; IV Status: Completed infusion; IV Intake: sv 1000ml Point of Care Testing: Blood Glucose: 07:10 Blood Glucose: 488 mg/dL; sv 09:37 Blood Glucose: 459 mg/dL; sv 11:38 Blood Glucose: 348 mg/dL; sv Ranges: Critical Glucose Levels:Adult <50 mg/dl or >400 mg/dl <40 mg/dl or >180 mg/dl Disposition: 03/13/19 10:10 Hospitalization ordered by David Wylie for Inpatient Admission. Preliminary diagnosis are Hyperglycemia, unspecified, Altered mental status, unspecified. - Bed requested for Telemetry/MedSurg (observation). - Status is Inpatient Admission. sv - Condition is Fair. - Problem is an acute exacerbation. - Symptoms are unchanged. UTI on Admission? No Signatures: Dispatcher [employer] EDJoie Sun RN RN Al Mendoza em1 Michael Omalley MD MD ps1 Jinny Pantoja RN aa5 Corrections: (The following items were deleted from the chart) 12:44 10:10 Hospitalization Ordered by David Wylie DO for Inpatient Admission. Preliminary em1 diagnosis is Hyperglycemia, unspecified; Altered mental status, unspecified. Bed requested for Telemetry/MedSurg (observation). Status is Inpatient Admission. Condition is Fair. Problem is an acute exacerbation. Symptoms are unchanged. UTI on Admission? No. ps1 13:28 12:44 03/13/2019 10:10 Hospitalization Ordered by David Wylie DO for Inpatient sv Admission. Preliminary diagnosis is Hyperglycemia, unspecified; Altered mental status, unspecified. Bed requested for Telemetry/MedSurg (observation). Status is Inpatient Admission. Condition is Fair. Problem is an acute exacerbation. Symptoms are unchanged. UTI on Admission? No. em1
[2019-03-13 10:34] LABS: Blood Morphology Comment NOT SEEN (NOT SEEN); Platelet Estimate ADEQ; Urine White Blood Cell Casts OK
[2019-03-13 10:42] LABS: Urine Blood TRACE (NEG); Urine Glucose 2+ (NEG); Urine Protein NEGATIVE (NEG)
[2019-03-13 11:10] LABS: Urine Bacteria NONE SEEN /HPF (<20); Urine Culture Reflex Order NOT NEEDED; Urine RBC <5 /HPF (NONE SEEN)
[2019-03-13] MEDS ORDERED: NA CHLORIDE 0.9% 1,000 ML ONE (11:44)
[2019-03-13] MEDS ORDERED: GLUCAGON 1 MG/VIAL IM PRN ×2 (11:46→17:32)
[2019-03-13] MEDS: INSULIN -REGULAR HUMAN 50 UNIT/0.5 ML ML SQ SCH ×3 (11:46→21:00)
[2019-03-13] MEDS ORDERED: ACETAMINOPHEN 500 MG TAB PO PRN (11:46)
[2019-03-13 13:08] LABS: Barbiturates NEGATIVE (NEGATIVE); Benzodiazepines NEGATIVE (NEGATIVE); Cocaine NEGATIVE (NEGATIVE); METHAMPHETAM NEGATIVE (NEGATIVE); Methadone NEGATIVE (NEGATIVE); Opiates NEGATIVE (NEGATIVE); Phencyclidine NEGATIVE (NEGATIVE); THC Cannibis NEGATIVE (NEGATIVE)
[2019-03-13 13:09] LABS: Potassium 4.2 mmol/L (3.5-5.1)
[2019-03-13] MEDS ORDERED: LORAZEPAM 1 MG TABLET PO PRN (13:58)
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
[2019-03-13 16:25] LABS: Urine Appearance CLEAR; Urine Bilirubin NEGATIVE (NEG); Urine Blood NEGATIVE (NEG); Urine Color YELLOW; Urine Glucose 3+ (NEG); Urine Protein NEGATIVE (NEG); Urine Urobilinogen 0.2 mg/dL (0.2-1.0)
[2019-03-13 16:26] LABS: Urine Microscopic Reflex NO UMIC
[2019-03-13] MEDS: ONDANSETRON 4 MG/2 ML VIAL IV PRN (17:20)
[2019-03-13] MEDS: NA CHLORIDE 0.9% 1,000 ML IV SCH ×2 (17:22→19:46)
[2019-03-13] MEDS ORDERED: D50W 25 GM/50 ML SYRINGE IV PRN (17:32)
[2019-03-13] MEDS: METOPROLOL TAR 25 MG TAB PO SCH (17:35)
[2019-03-13] MEDS: INSULIN -REGULAR HUMAN 50 UNIT/0.5 ML ML SQ ONE ×2 (17:39→17:44)
[2019-03-13] MEDS ORDERED: INSULIN -REGULAR HUMAN 50 UNIT/0.5 ML ML SQ ONE (18:40)
[2019-03-13 19:21] LABS: Potassium 3.8 mmol/L (3.5-5.1)
[2019-03-13 19:34] VITALS: BMI 31.4
[2019-03-13 20:36] VITALS: O2SAT 100
[2019-03-13] MEDS ORDERED: INSULIN GLARGINE 100 UNITS/ML SQ SCH ×2 (21:00)
[2019-03-13] MEDS ORDERED: DULOXETINE 30 MG CAP PO SCH (21:00)
[2019-03-13] MEDS ORDERED: INSULIN -REGULAR HUMAN 100 UNIT in NA CHLORIDE 0.9% 100 ML IV SCH (21:48)
[2019-03-13] MEDS ORDERED: NA CHLORIDE 0.9% 100 ML ONE (22:21)
[2019-03-13] MEDS: FAMOTIDINE 20 MG/2 ML VIAL IV SCH (22:23)
[2019-03-13] MEDS: PREGABALIN 150 MG CAP PO SCH (22:23)
[2019-03-13] MEDS: NACHLORIDE 0.45% 1,000 ML IV SCH (22:23)
[2019-03-13 22:44] LABS: Potassium 3.3 mmol/L (3.5-5.1)
[2019-03-13] MEDS: D50W 25 GM/50 ML SYRINGE IV PRN (23:27)
[2019-03-13] MEDS: D5 0.45 NS 1,000 ML IV SCH (23:30)
[2019-03-14] MEDS: D50W 25 GM/50 ML SYRINGE IV PRN (00:22)
[2019-03-14] MEDS ORDERED: POTASSIUM CL SA 10 MEQ TAB PO ONE (01:56)
[2019-03-14] MEDS: NACHLORIDE 0.45% 1,000 ML IV SCH ×2 (02:00→06:00)
[2019-03-14 02:23] LABS: BUN Blood Urea Nitrogen 10 mg/dL (7-18); Bicarbonate 23 mmol/L (21-32); Glucose Level 142 mg/dL (74-106); Sodium Level 138 mmol/L (136-145)
[2019-03-14] MEDS: D5 0.45 NS 1,000 ML IV SCH ×2 (04:40→11:20)
[2019-03-14] MEDS ORDERED: ACETAMINOPHEN 500 MG TAB PO PRN (05:51)
[2019-03-14] MEDS: METOPROLOL TAR 25 MG TAB PO SCH (06:12)
[2019-03-14] MEDS: INSULIN GLARGINE 100 UNITS/ML SQ SCH ×2 (06:27→08:02)
[2019-03-14 06:57] LABS: Absolute Lymphocytes (CBC) 2.6 K/uL (0.7-4.9); Basophils % 0.4 % (0-1.3); Eosinophils % 0.4 % (0-4.4); Hematocrit 31.6 % (36.0-45.0); Lymphocytes % 22.7 % (15.3-44.8); MPV 8.4 fL (7.6-11.3); RBC Red Blood Cell Count 3.94 M/uL (3.86-4.86)
[2019-03-14 07:32] LABS: Magnesium 1.6 mg/dL (1.8-2.4)
[2019-03-14 07:36] LABS: Potassium 2.9 mmol/L (3.5-5.1)
[2019-03-14] MEDS ORDERED: KCL 20 MEQ/100 mL IVPB 20 MEQ/100 ML BAG IV SCH (08:00)
[2019-03-14] MEDS ORDERED: POTASSIUM CL 60 MEQ in NA CHLORIDE 0.9% 1,000 ML IV ONE (08:00)
[2019-03-14] MEDS: PREGABALIN 150 MG CAP PO SCH (08:25)
[2019-03-14] MEDS: FAMOTIDINE 20 MG/2 ML VIAL IV SCH (08:25)
[2019-03-14 08:37] LABS: Anisocytosis 1+; Blood Morphology Comment NOTED (NOT SEEN); Platelet Estimate ADEQ
[2019-03-14] MEDS ORDERED: METOPROLOL XL 25 MG TAB PO SCH (09:00)
[2019-03-14] MEDS ORDERED: LISINOPRIL 5 MG TAB PO SCH (09:00)
[2019-03-14] MEDS ORDERED: ENOXAPARIN 40 MG/0.4 ML SQ SCH (09:00)
[2019-03-14] MEDS ORDERED: BUPROPION HCL XL 150 MG TAB PO SCH (09:00)
--- NOTE | 2019-03-14 09:01 | P.DS ---
Admission Date: 03/14/19 Discharge Date: 03/14/19 Primary Care Provider: Unknown Disposition: ROUTINE DISCHARGE Discharge Condition: GOOD Reason for Admission: Nausea, vomiting Consultations: none Procedures: Chest x-ray: Unremarkable Medical problem list: Nausea, vomiting, hypokalemia and hypomagnesemia secondary to diabetic ketoacidosis with underlying diabetes mellitus type 1 Hypertension Depression with anxiety GERD with history of gastroparesis and prior gastric bypass Chronic pain with diabetic neuropathy Brief History of Present Illness: 53-year-old female presented to the emergency room with increased nausea and vomiting. Patient with history of type 1 diabetes, depression, hypertension, hyperlipidemia and CAD. Patient presented with increased nausea and vomiting. She reported that this started earlier today. She denied any chest pain, shortness of breath. No diarrhea noted. No significant abdominal pain noted. Blood sugars were elevated. She came to the ER for further evaluation. Patient with history of DKA in the past. Patient reports compliance with her medication. In the ER patient evaluated. Initial blood pressures were above 500. White count 7.6, hemoglobin 10.9. Sodium 129, creatinine 4.3, BUN of 11, GFR within normal range. Patient was evaluated for DKA. Patient did not have DKA. Patient was given IV fluid bolus and insulin. The patient was admitted for observation. When I saw the patient in the ER, the patient appeared stable. Patient reported some nausea. Hospital Course: Patient presented with nausea and vomiting. Patient initially had hyperglycemia without evidence of DKA. During the course of her stay blood sugars remain elevated. Recheck lab showed DKA. Patient was transferred to the ICU. She was started on an insulin drip. Gap now closed. Patient transitioned to her basal insulin. Patient without any significant nausea and vomiting. At discharge patient will continue with Lantus 20 units subcu twice daily. Patient will continue with her insulin sliding scale. Patient takes fast acting insulin regularly with meals and extra dose pending carb counting. Recommend to maintain blood sugars less than 140 fasting and less than 200 after meals. Further adjustment can be done with the help of her PCP. Recommendations for the patient to follow up with endocrinology is now patient and get better control of her diabetes. A1c 9.6. Patient would benefit with insulin pump in the future. This will need to be considered when seen by endocrinology. Patient with hypertension. Blood pressure stable with her medication. At discharge will continue with her medications-Prinivil 5 mg daily and metoprolol XL 25 mg daily. Recommend to maintain blood pressure last 150/80. Further adjustment to be done prior PCP. Patient with underlying depression with anxiety. Patient will continue with her medications-bupropion XL 300 mg daily, Cymbalta 60 mg 1 pill at bedtime, Rozerem 8 mg at bedtime for insomnia and Ativan 1 mg 3 times a day as needed for anxiety. Patient has increased stress at home. Patient plans to further address home situation soon. Recommend to follow up with psychiatry to further monitor and address. Patient with GERD with prior history of gastric paresis and gastric bypass. Patient will continue with her medication-Protonix 40 mg daily. Patient with chronic pain and diabetic neuropathy. Patient will continue with the recurrent 150 mg 1 pill twice daily. Vital Signs/Physical Exam: Temp Pulse Resp BP Pulse Ox 97.3 F 103 H 18 126/55 L 100 03/14/19 04:00 03/14/19 06:12 03/14/19 06:00 03/14/19 06:12 03/14/19 06:00 General: Alert, In no apparent distress, Oriented x3, Cooperative HEENT: Atraumatic Neck: Supple Respiratory: Clear to auscultation bilaterally, Normal air movement Cardiovascular: Normal pulses, Regular rate/rhythm Gastrointestinal: Normal bowel sounds, Soft and benign, Non-distended, No tenderness, No masses, No rebound, No guarding Musculoskeletal: No erythema, No tenderness, No warmth Integumentary: No tenderness/swelling, No erythema, No warmth, No cyanosis Neurological: Normal speech, Normal strength at 5/5 x4 extr, Normal tone, Normal affect Laboratory Data at Discharge: WBC 11.3 K/uL (4.3-10.9) H D 03/14/19 06:45 Hgb 10.3 g/dL (12.0-15.0) L 03/14/19 06:45 Hct 31.6 % (36.0-45.0) L 03/14/19 06:45 Plt Count 281 K/uL (152-406) 03/14/19 06:45 Sodium 135 mmol/L (136-145) L 03/14/19 06:45 Potassium 2.9 mmol/L (3.5-5.1) L* 03/14/19 06:45 BUN 8 mg/dL (7-18) 03/14/19 06:45 Creatinine 0.89 mg/dL (0.55-1.3) 03/14/19 06:45 Glucose 169 mg/dL (74-106) H 03/14/19 06:45 Magnesium 1.6 mg/dL (1.8-2.4) L D 03/14/19 06:45 Total Bilirubin 0.6 mg/dL (0.2-1.0) 03/13/19 07:30 AST 17 U/L (15-37) 03/13/19 07:30 ALT 17 U/L (12-78) 03/13/19 07:30 Alkaline Phosphatase 150 U/L (45-117) H 03/13/19 07:30 Lipase 45 U/L (73-393) L 03/13/19 07:30 Home Medications: Albuterol Sulfate [Proair Hfa] 1 puff IH TID PRN 01/31/19 Bupropion HCl [Bupropion Xl] 300 mg PO DAILY 01/31/19 Colestipol HCl [Colestid] 1 gm PO BID 01/31/19 Duloxetine [Cymbalta *] 60 mg PO BEDTIME 01/31/19 Fluticasone [Flonase 50MCG Nasal [place]*] 1 spray IH BID PRN 01/31/19 LORazepam [Ativan*] 1 tab PO TID PRN 01/31/19 Lisinopril [Prinivil*] 1 tab PO DAILY 01/31/19 Metoprolol Succinate [Toprol Xl*] 1 tab PO DAILY 01/31/19 Mirabegron [Myrbetriq] 1 tab PO BEDTIME 01/31/19 Pregabalin [Lyrica] 1 tab PO BID 01/31/19 Ramelteon [Rozerem] 1 tab PO BEDTIME 01/31/19 Sucralfate [Carafate] 10 ml PO TID 01/31/19 Trazodone [Desyrel*] 100 mg PO BEDTIME PRN 01/31/19 Pantoprazole [Protonix Tab*] 40 mg PO DAILY #30 tab 02/01/19 Insulin Glargine Human [Lantus*] 20 units SQ BID #1 vial 03/14/19 New Medications: Insulin Glargine Human [Lantus*] 20 units SQ BID #1 vial Patient Discharge Instructions: 1. Recommend a follow up with the PCP within 1 week. 2. Patient presented with nausea and vomiting. Patient initially had hyperglycemia without evidence of DKA. During the course of her stay blood sugars remain elevated. Recheck lab showed DKA. Patient was transferred to the ICU. She was started on an insulin drip. Gap now closed. Patient transitioned to her basal insulin. Patient without any significant nausea and vomiting. At discharge patient will continue with Lantus 20 units subcu twice daily. Patient will continue with her insulin sliding scale. Patient takes fast acting insulin regularly with meals and extra dose pending carb counting. Recommend to maintain blood sugars less than 140 fasting and less than 200 after meals. Further adjustment can be done with the help of her PCP. Recommendations for the patient to follow up with endocrinology is now patient and get better control of her diabetes. A1c 9.6. Patient would benefit with insulin pump in the future. This will need to be considered when seen by endocrinology. 3. Patient with hypertension. Blood pressure stable with her medication. At discharge will continue with her medications-Prinivil 5 mg daily and metoprolol XL 25 mg daily. Recommend to maintain blood pressure last 150/80. Further adjustment to be done prior PCP. 4. Patient with underlying depression with anxiety. Patient will continue with her medications-bupropion XL 300 mg daily, Cymbalta 60 mg 1 pill at bedtime, Rozerem 8 mg at bedtime for insomnia and Ativan 1 mg 3 times a day as needed for anxiety. Patient has increased stress at home. Patient plans to further address home situation soon. Recommend to follow up with psychiatry to further monitor and address. 5. Patient with GERD with prior history of gastric paresis and gastric bypass. Patient will continue with her medication-Protonix 40 mg daily. 6. Patient with chronic pain and diabetic neuropathy. Patient will continue with the recurrent 150 mg 1 pill twice daily. Diet: ADA Activity: Ad jorge luis Time spent managing pt's care (in minutes): 55
[2019-03-14] MEDS: ONDANSETRON 4 MG/2 ML VIAL IV PRN (09:12)
[2019-03-14] MEDS ORDERED: MAGNESIUM SULFATE 1 gm IVPB 1 GM/100 ML BAG IV ONE (11:59)
[2019-03-14 15:27] VITALS: BP 118/71
[2019-03-14 16:11] VITALS: TEMP 97.8
[2019-03-14] MEDS ORDERED: INSULIN -REGULAR HUMAN 50 UNIT/0.5 ML ML SQ SCH (16:30)
== END 2019-03-14 15:55 | disposition home or self-care (01) | DRG 639 ==
LOC: ER 06:32 → ERHOLD 09:55 → 2ND 12:53 → 3RD-ICU 21:30 → OBSVTOIN 03-14 07:50
PROVIDERS: ADMIT Family Medicine; ATTEND Family Medicine
DX: E10.65 Type 1 diabetes mellitus with hyperglycemia (principal); I10 Essential (primary) hypertension; E87.6 Hypokalemia; E83.42 Hypomagnesemia; E78.5 Hyperlipidemia, unspecified; F41.8 Other specified anxiety disorders; I25.10 Atherosclerotic heart disease of native coronary artery without angina pectoris; F17.210 Nicotine dependence, cigarettes, uncomplicated; K21.9 Gastro-esophageal reflux disease without esophagitis; M79.7 Fibromyalgia; E10.40 Type 1 diabetes mellitus with diabetic neuropathy, unspecified; Z79.4 Long term (current) use of insulin; Z98.84 Bariatric surgery status; Z95.5 Presence of coronary angioplasty implant and graft
CPT/HCPCS: 36415; 51702; 71045; 80048; 80076; 80307; 81003; 81015; 82805; 82947; 82962; 83036; 83690; 83735; 85025; 87045; 87046; 87493; 96361; 96365; 96366; 96372; 96375; 99285; G0378; J1650; J2405; J2765; J3475; J7030

== ENCOUNTER 2019-03-26 18:50 | Emergency (ER) | payer OTHER ==
--- OUTSIDE RECORDS SUMMARY | 2019-03-26 18:53 | XMS REPORT | Clinical Summary ---
:1965 Author Organization [facility] Address [address] [place] [address] Care Team Providers Name Role Phone Fabián [...] 05/31/2018 Surgery Gastroenterology [facility]ah[facility] UPPER ENDOSCOPY [facility] 05/31/2018 Hospital Encounter Gastroenterology Bo[facility] Barahona [facility] 05/24/2018 Hospital Encounter Pre-Admission Testing Resource, [facility] Preadmit Phone after 03/25/2018 Social History Tobacco Use Types Packs/Day Years [...] procedure are in the results section. after 03/25/2018 Results POC-Glucose meter (05/31/2018 2:40 PM CDT)Only the most recent of2 resultswithin the time period is included. POC-Glucose Meter 211 (H)Comment: TESTED AT 70 - 110 mg/dL [facility] [address] [facility] [id number] Specimen Blood Performing Organization Address City/State/Zipcode Phone Number [facility] [address] [place] [address] CENTER REPORT OF PROCEDURE - ENDOSCOPY URL (05/31/2018 2:37 PM CDT) Narrative Performed At after 03/25/2018 Insurance Payer Benefit Plan / Group Subscriber ID Type Phone Address [facility] - MEDICARE AARP/MEDICARE COMPLETE xxxxxxxxx [facility] CARE Advance Directives For more information, please contact:[address] [phone] Code Status Date Activated Date Inactivated Comments Full Code 06/25/2017 10:56 AM 06/25/2017 5:59 PM This code status was determined by: Patient
[2019-03-26] MEDS ORDERED: FENTANYL CITR 100 MCG/2 ML ONE (19:38)
--- OUTSIDE RECORDS SUMMARY | 2019-03-26 19:47 | XMS REPORT | Continuity of Care Document ---
:1965 Author Organization [employer] Care Team Providers Name Role Phone [employer] Unavailable Unavailable Problems Problem Status Onset Classification Date Comments Source Date Reported PAIN IN Active 08/13/20 [facility] ABDOMEN/NAUSEA/TI Medical GHTENESS IN [facility] Center BDDC/GASTROESOPHA Active 07/24/20 [facility] GEAL REFLUX [address] [place] [address] DISEASE Center VOMITING Active 07/11/[address] Center GASTROPARESIS Active 07/11/[address] Center CHEST PAIN Active 04/02/[address] Center R/O ACS Active 04/02/[address] SOB/CHEST PAIN Active 03/06/[address] Center HYPERGLYCEMIA Active 03/06/20 [facility] DEHYDRATION [address] [place] [address] GASTROPARESIS Center NASEAU Active 01/11/[address] VOMITTING, Active 11/29/19 [facility] DIABETIC, HEART Medical PT Center N/V Active 11/29/[address] Center ACS R/O AND Active 11/17/19 [facility] PERSISTANT N/V [address] [place] [address] Center NAUSEA, VOMITTING Active 11/17/[address] Center MRSA1, 2 Active 10/23/19 Problem 11/19/2012 1nares 10/23/2012 [place] [address] 2Problem added by Discern Expert. [facility] Center MRSA1, 2, 3, 4 Active 10/23/19 Problem 08/15/2013 - Nares [place] [address] - [facility] Medical 3nares 10/23/2012 Center 4Problem added by Discern Expert. MRSA1, 2, 3, 4 Active 10/23/19 Problem 04/05/2013 - Nares [place] [address] - [facility] Medical 3nares 10/23/2012 Center 4Problem added by Discern Expert. N/V DEHYDRATION Active 10/22/[address] [place] - Myocardial Resolved 10/22/19 Problem 08/15/[address] [place] - Myocardial Resolved 10/22/19 Problem 04/05/[address] DSU/ REFLUX Active 06/13/[address] MORBID OBESITY Active 01/19/[address] Acid reflux Resolved Problem 04/05/2013 [facility] Anemia Resolved Problem 04/05/2013 [facility] Anxiety Resolved Problem 04/05/2013 [facility] Arthritis Resolved Problem 04/05/2013 [facility] Depression Resolved Problem 04/05/2013 [facility] Diabetes mellitus Resolved Problem 04/05/[address] Edema of lower Resolved Problem 04/05/2013 [facility] Fibromyalgia Resolved Problem 04/05/2013 [facility] Hyperlipidemia Resolved Problem 04/05/2013 [facility] Hypertension Resolved Problem 04/05/2013 [facility] Acid reflux Resolved Problem 08/15/2013 [facility] Anemia Resolved Problem 08/15/2013 [facility] Anxiety Resolved Problem 08/15/2013 [facility] Arthritis Resolved Problem 08/15/2013 [facility] Depression Resolved Problem 08/15/2013 [facility] Diabetes mellitus Resolved Problem 08/15/[address] Edema of lower Resolved Problem 08/15/2013 [facility] Fibromyalgia Resolved Problem 08/15/2013 [facility] Gastric ulcer Resolved Problem 08/15/2013 [facility] Hyperlipidemia Resolved Problem 08/15/2013 [facility] Hypertension Resolved Problem 08/15/2013 [facility] Neuropathy Resolved Problem 08/15/2013 [facility] Gastric ulcer Resolved Problem 04/05/2013 [facility] Neuropathy Resolved Problem 04/05/2013 [facility] MORBID OBESITY Active [facility] NAUSEA WITH Active [facility] VOMITING [facility] CHEST PAIN NOS Active [facility] OTHER GENERAL Active [facility] SYMPTOMS [facility] Medications Medication Details Route Status Patient Ordering Order Source Instructions Provider Date Zofran 4 mg 4 mg=1 tab, PO, Active De La Garza 08/13/ [facility] oral tablet BID, # 10 tab, 0 2012 Medical Refill(s) Center Reglan 10 mg 10 mg=1 tab, PO, Active De La Garza 08/13/ [facility] oral tablet QID, # 40 tab, 0 2012 Medical Refill(s) Center IDS med 5 mg, 1 mL, Inactive Ruggiero 08/13/ [facility] Rate: 30 ml/hr, 2012 Medical Infuse over: 2 Center minutes, Route: IV, Total Volume: 1, Stop date: 08/13/13 16:00:00 NS (Bolus) IV 1,000 mL, Rate: Inactive De La Garza [facility] 1,000 mL 1,000 ml/hr, 2012 Medical Infuse over: 1 Center hr, Route: IV, Dosing Weight 81.818 kg, Total Volume: 1,000, Priority: STAT, Start date: 08/13/13 13:56:00, Duration: 1 doses or times, Stop date: 08/13/13 14:55:00, Bolus DoseBolus Dose Phenergan 25 mg, 1 mL, Inactive De La Garza [facility] Route: IVPB, 2012 Medical Drug form: INJ, Center ONCE, Dosing Weight 81.818, kg, Priority: STAT, Start date: 08/13/13 13:17:00, Stop date: 08/13/13 13:17:00Do not give IV push. (Same as: Phenergan) Zofran 4 mg, 2 mL, Inactive De La Garza [facility] Route: IVP, Drug 2012 Medical form: INJ, ONCE, Center Dosing Weight 81.818, kg, Priority: STAT, Start date: 08/13/13 12:41:00, Stop date: 08/13/13 12:41:00(Same as: Zofran) morphine 4 mg, 1 mL, Inactive De La Garza [facility] Sulfate Route: IVP, Drug 2012 Medical form: INJ, ONCE, Center Dosing Weight 81.818, kg, Priority: STAT, Start date: 08/13/13 12:40:00, Stop date: 08/13/13 12:40:00(Same as:MORPhine Sulfate) Sodium Chloride 1,000 mL, Rate: Inactive Wilfredcz [facility] 0.9% (Bolus) IV 1,000 ml/hr, 2012 Medical 1,000 mL Infuse over: 1 Center hr, Route: IV, Dosing Weight 81.818 kg, Total Volume: 1,000, Priority: STAT, Start date: 08/13/13 11:52:00, Duration: 1 doses or times, Stop date: 08/13/13 12:51:00, Bolus DoseBolus Dose normal saline 1,000 mL, Rate: Inactive [facility] 0.9% IV 1,000 500 ml/hr, 2012 Medical mL Infuse over: 2 Center hr, Route: IV, Dosing Weight 86.364 kg, Total Volume: 1,000, Start date: 07/14/13 14:02:00, Duration: 4 hr, Stop date: 07/14/13 18:01:00 Reglan 10 mg 10 mg, 1 tab, Inactive [facility] oral tablet Route: PO, Drug 2012 Medical form: TAB, Center TID-Before Meals, Dosing Weight 86.364, kg, Start date: 07/14/13 11:30:00, Duration: 30 day, Stop date: 08/13/13 7:30:00(Same as: Reglan) Take 30 min before meals Levemir 15 unit, 0.15 No Longer [facility] mL, Route: Active 2012 Medical SUB-Q, Drug Center form: INJ, BID, Dosing Weight 86.364, kg, Start date: 07/13/13 21:00:00, Duration: 30 day, Stop date: 08/12/13 9:00:00Same as Levemir "single patient use only" pneumococcal 0.5 ml, Route: No Longer [facility] 23-valent IM, Drug Form: Active 2012 Medical vaccine INJ, Start date: [place] 07/13/13 9:00:00, Stop date: 07/13/13 9:00:00 influenza virus 0.5 ml, Route: No Longer [facility] vaccine, IM, Drug Form: Active 2012 Medical inactivated SUSP, Start Center date: 07/13/13 9:00:00, Stop date: 07/13/13 9:00:00 lisinopril 20 mg, 1 tab, No Longer [facility] Route: PO, Drug Active 2012 Medical form: TAB, Center Daily, Dosing Weight 86.364, kg, Start date: 07/13/13 9:00:00, Duration: 30 day, Stop date: 08/11/13 9:00:00(Same as: Prinivil, Zestril) metoprolol 50 mg, Route: No Longer [facility] [place] tartrate PO, Drug form: Active 2012 Medical TAB, Daily, Center Dosing Weight 86.364, kg, Start date: 07/13/13 9:00:00, Duration: 30 day, Stop date: 08/11/13 9:00:00 Lyrica 150 mg, 2 cap, No Longer [facility] Route: PO, Drug Active 2012 Medical form: CAP, BID, Center Dosing Weight 86.364, kg, Start date: 07/13/13 9:00:00, Duration: 30 day, Stop date: 08/11/13 17:00:00(Same as: Lyrica) potassium 20 mEq, 1 tab, No Longer [facility] chloride Route: PO, Drug Active 2012 Medical form: ERTAB, Center Daily, Dosing Weight 86.364, kg, Start date: 07/13/13 9:00:00, Duration: 30 day, Stop date: 08/11/13 9:00:00(Same as: K-Dur 20) "Do Not Crush" With food and full glass of water Effient 10 mg, 1 tab, No Longer [facility] Route: PO, Drug Active 2012 Medical form: TAB, Center Daily, Dosing Weight 86.364, kg, Start date: 07/13/13 9:00:00, Duration: 30 day, Stop date: 08/11/13 9:00:00Same as Effient For patients 60kg, without history of TIA/Ischemic stroke and without likely bypass surgery Protonix 40 mg, 1 tab, No Longer [facility] Route: PO, Drug Active 2012 Medical form: ECTAB, Center BID-Before Meals, Dosing Weight 86.364, kg, Start date: 07/13/13 9:00:00, Stop date: 08/11/13 16:30:00Tablet should not be chewed or crushed. (Same as: Protonix) meloxicam 7.5 mg, Route: No Longer [facility] PO, Drug form: Active 2012 Medical TAB, BID, Dosing Center Weight 86.364, kg, Start date: 07/13/13 9:00:00, Duration: 30 day, Stop date: 08/11/13 17:00:00 magnesium oxide 400 mg, 1 tab, No Longer [facility] Route: PO, Drug Active 2012 Medical form: TAB, Center Daily, Dosing Weight 86.364, kg, Start date: 07/13/13 9:00:00, Duration: 30 day, Stop date: 08/11/13 9:00:00(Same as: Mag-Ox 400) Magnesium oxide [id number] elemental magnesium Dose=____mg magnesium oxide (___mg elemental magnesium) furosemide 40 40 mg, 1 tab, No Longer [facility] mg oral tablet Route: PO, Drug Active 2012 Medical form: TAB, Center Daily, Dosing Weight 86.364, kg, Start date: 07/13/13 9:00:00, Duration: 30 day, Stop date: 08/11/13 9:00:00(Same as: Lasix) May cause GI upset. Give with food or milk. ferrous sulfate 325 mg, 1 tab, No Longer [facility] Route: PO, Drug Active 2012 Medical form: ECTAB, Center TID, Dosing Weight 86.364, kg, Start date: 07/13/13 9:00:00, Duration: 30 day, Stop date: 08/11/13 17:00:00Give with food. "Do Not Crush" clonazepam 0.5 mg, 1 tab, No Longer [facility] Route: PO, Drug Active 2012 Medical form: TAB, TID, Center Dosing Weight 86.364, kg, Start date: 07/13/13 9:00:00, Duration: 30 day, Stop date: 08/11/13 17:00:00(Same As: Klonopin) Insulin regular 5 unit, 0.05 mL, No Longer [facility] Route: SUB-Q, Active 2012 Medical Drug [...] Reglan 10 mg, 2 mL, No Longer [facility] Route: IVP, Drug Active 2012 Medical form: INJ, Q6H, Center Dosing Weight 86.364, kg, Start date: 07/13/13 0:00:00, Duration: 30 day, Stop date: 08/11/13 18:00:00(Same as: Reglan) normal saline 1,000 mL, Rate: No Longer [facility] 0.9% IV 1,000 200 ml/hr, Active 2012 Medical mL Infuse over: 5 Center hr, Route: IV, Dosing Weight 86.364 kg, Total Volume: 1,000, Start date: 07/12/13 21:08:00, Duration: 3 doses or times, Stop date: 07/13/13 12:07:00 metoprolol 50 mg, 1 tab, No Longer [facility] tartrate Route: PO, Drug Active 2012 Medical form: TAB, Q12H, Center Dosing Weight 86.364, kg, Start date: 07/12/13 21:00:00, Duration: 30 day, Stop date: 08/11/13 9:00:00(Same as: Lopressor) Levemir 12 unit, 0.12 No Longer [facility] mL, Route: Active 2012 Medical SUB-Q, Drug Center form: INJ, BID, Dosing Weight 86.364, kg, Start date: 07/12/13 21:00:00, Duration: 30 day, Stop date: 08/11/13 9:00:00Same as Levemir "single patient use only" Cymbalta 120 mg, 2 cap, No Longer [facility] Route: PO, Drug Active 2012 Medical form: DR, Center Bedtime, Dosing Weight 86.364, kg, Start date: 07/12/13 21:00:00, Duration: 30 day, Stop date: 08/10/13 21:00:00Non Formulary Drug (Same as: Cymbalta) (Do Not Crush) ProAir HFA 90 2 puff, Route: No Longer [facility] mcg/inh INHALATION, Drug Active 2012 Medical inhalation Form: AERO/A, [place] aerosol with Dosing Weight adapter 86.364, kg, QID, PRN Shortness of breath, Start date: 07/12/13 20:09:00, Duration: 30 day, Stop date: 08/11/13 20:08:00Albutero l 90 microgram/inh 8gm HFA Same as: Ventolin, Proventil aspirin 81 mg 81 mg, 1 tab, No Longer [facility] tablet, enteric Route: PO, Drug Active 2012 Medical coated form: ECTAB, [place] Daily, Dosing Weight 86.364, kg, Start date: 07/12/13 20:00:00, Duration: 30 day, Stop date: 08/11/13 9:00:00Do not crush or chew. (Same As: Ecotrin) glucagon 1 mg, Route: IM, No Longer [facility] Drug form: Active 2012 Medical PDR/INJ, PRN, Center Dosing Weight 86.364, kg, PRN Blood Glucose Results, Start date: 07/12/13 18:26:00, Duration: 30 day, Stop date: 08/11/13 18:25:00 Dextrose 50% 12.5 gm, 25 mL, No Longer [facility] Syringe Route: IVP, Drug Active 2012 Medical Form: INJ, [place] Dosing Weight 86.364, kg, PRN, PRN Blood Glucose Results, Start date: 07/12/13 18:26:00, Duration: 30 day, Stop date: 08/11/13 18:25:00 insulin aspart 4 unit, 0.04 mL, No Longer [facility] Route: SUB-Q, Active 2012 Medical Drug form: SOLN, [place] TID-Before Meals, Dosing Weight 86.364, kg, PRN Blood Glucose Results, Start date: 07/12/13 18:26:00, Duration: 30 day, Stop date: 08/11/13 18:25:00Roll in palms of hands gently; Do not shake vigorously. (Same as: NovoLog) "single patient use only" Stable for 28 days at room temperature. Expires in days from Da te tramadol 50 mg 50 mg, 1 tab, No Longer [facility] [place] oral tablet Route: PO, Drug Active 2012 Medical form: TAB, Q4H, Center Dosing Weight 86.364, kg, PRN as needed for pain, Start date: 07/12/13 18:24:00, Duration: 30 day, Stop date: 08/11/13 18:23:00Not to exceed 400mg/day. (Same As: Ultram) acetaminophen-h 1 tab, Route: No Longer [facility] ydrocodone 325 PO, Drug Form: Active 2012 Medical mg-5 mg oral TAB, Dosing Center tablet Weight 86.364, kg, Q4H, PRN Pain, Start date: 07/12/13 18:23:00, Duration: 30 day, Stop date: 08/11/13 18:22:00(Same as: [place] 325/5) Do not exceed 4gm/day of acetaminophen. Flexeril 10 mg, 1 tab, No Longer [facility] Route: PO, Drug Active 2012 Medical form: TAB, TID, Center Dosing Weight 86.364, kg, PRN Spasm, Start date: 07/12/13 18:23:00, Duration: 30 day, Stop date: 08/11/13 18:22:00(Same As: Flexeril) benzonatate 100 mg, 1 cap, No Longer [facility] Route: PO, Drug Active 2012 Medical form: CAP, TID, Center Dosing Weight 86.364, kg, PRN as needed for cough, Start date: 07/12/13 18:23:00, Duration: 30 day, Stop date: 08/11/13 18:22:00(Same As: Oleksandr Francis) "Do Not Crush" Saline Flush 5 ml, Route: No Longer [facility] 0.9% IVP, Drug Form: Active 2012 Medical INJ, Dosing Center Weight 86.364, kg, PRN, PRN Line Flush, Start date: 07/12/13 18:22:00, Duration: 30 day, Stop date: 08/11/13 18:21:00(Same as: BD Posiflush) ondansetron 4 mg, 2 mL, No Longer [facility] Route: IVP, Drug Active 2012 Medical form: INJ, Q8H, Center Dosing Weight 86.364, kg, PRN Nausea & Vomiting, Start date: 07/12/13 18:22:00, Duration: 30 day, Stop date: 08/11/13 18:21:00(Same as: Zofran) aspirin 81 mg 81 mg, 1 tab, Active [facility] tablet, enteric PO, Daily, 0 2012 Medical coated tab, Center Substitution Allowed, ECTAB Klor-Con M20 20 mEq, 1 tab, No Longer [facility] oral tablet, PO, Daily, 180 Active 2012 Medical extended tab, Center release Substitution Allowed, ERTAB furosemide 40 40 mg, 1 tab, No Longer [facility] mg oral tablet PO, Daily, 30 Active 2012 Medical tab, Center Substitution Allowed, TAB benzonatate 100 PO, TID, PRN, 1 Active [facility] mg oral capsule to 2 tabs, prn, 2012 Medical Substitution Center Allowed1 to 2 tabs metoprolol 50 mg, 1 tab, No Longer [facility] tartrate 50 mg PO, Daily, 180 Active 2012 Medical oral tablet tab, Center Substitution Allowed, TAB Reglan 10 mg, 2 mL, Inactive [facility] Route: IVP, Drug 2012 Medical form: INJ, ONCE, Center Dosing Weight 86.364, kg, Priority: STAT, Start date: 07/12/13 12:12:00, Stop date: 07/12/13 12:12:00(Same as: Reglan) Zofran 4 mg, Route: Inactive [facility] IVP, Drug form: 2012 Medical INJ, ONCE, Center Dosing Weight 86.364, kg, Priority: STAT, Start date: 07/12/13 10:52:00, Stop date: 07/12/13 10:52:00 morphine 4 mg, Route: Inactive [facility] 07/12[facility] Sulfate IVP, Drug form: 2012 Medical [...] Stop date: 07/12/13 11:05:00, Bolus DoseBolus Dose [place] 5/325 1 tab, Route: Inactive [facility] [...] ODT 8 mg, Route: PO, Inactive [facility] Drug form: 2012 Medical TABDIS, ONCE, Center Dosing Weight 86.364, kg, Priority: STAT, Start date: 07/12/13 6:56:00, Stop date: 07/12/13 6:56:00 Levemir 10 unit, 0.1 mL, Inactive [facility] Route: SUB-Q, 2012 Medical Drug form: INJ, Center ONCE, Dosing Weight 86.364, kg, Start date: 07/12/13 4:20:00, Stop date: 07/12/13 4:20:00Same as Levemir "single patient use only" Omnipaque 100 mL, Route: Inactive [facility] 350mg/ml IVP, Drug Form: 2012 Medical SOLN, Dosing Center Weight 86.364, kg, ONCALL, STAT, Start date: 07/12/13 4:18:00, Duration: 1 doses or times, Dose=2.2ml/kg, Max [id number] -- "To be infused by Radiology Staff ONLY"Dose=2.2ml/ kg, Max [id number] -- "To be infused by Radiology Staff [...] Phenergan 12.5 mg, 0.5 mL, Inactive [facility] Route: IVPB, 2012 Medical Drug form: [...] mg, 1 tab, PO No Longer [facility] [place] tablet, enteric Route: PO, Drug Active 2012 [...] mg, 1 tab, PO No Longer [facility] [place] Route: PO, Drug Active 2012 Medical [...] mg, 1 tab, PO No Longer [facility] [place] Route: PO, Drug Active 2012 Medical form: TAB, BID, Center Dosing Weight 90, kg, Priority: Routine, Start date: 04/03/13 9:00:00, Duration: 30 day, Stop date: 05/02/13 17:00:00 lisinopril 20 mg, Route: PO No Longer [facility] PO, Drug form: Active 2012 Medical [...] PO, Drug Active 2012 Medical form: ECTAB, [place] TID, Dosing Weight 90, kg, Start date: [...] SUB-Q, Active 2012 Medical Drug form: SOLN, [place] TID-Before Meals, Dosing Weight 90, kg, Start [...] PO, Drug Active 2012 Medical form: DRC, [place] Bedtime, Dosing Weight 90, kg, Start date: 04/02/13 23:30:00, Duration: 30 day, Stop date: 05/02/13 21:00:00 Zocor 40 mg, 1 tab, PO No Longer [facility] Route: PO, Drug Active 2012 Medical form: TAB, Center Bedtime, Dosing Weight 90, kg, Start date: 04/02/13 21:00:00, Duration: 30 day, Stop date: 05/01/13 21:00:00 Cymbalta 60 mg, 1 cap, PO No Longer [facility] Route: PO, Drug Active 2012 Medical form: DRC, Center Bedtime, Dosing Weight 90, kg, Start date: 04/02/13 21:00:00, Duration: 30 day, Stop date: 05/01/13 21:00:00 magnesium oxide 400 mg, 1 tab, PO No Longer [facility] [place] Route: PO, Drug Active 2012 Medical form: TAB, Center Daily, Dosing Weight 90, kg, Priority: NOW, Start date: 04/02/13 20:45:00, Duration: 30 day, Stop date: 05/02/13 9:00:00 Levemir 12 unit, 0.12 SUB-Q No Longer [facility] [place] mL, Route: Active 2012 Medical SUB-Q, Drug Center form: INJ, BID, Dosing Weight 90, kg, Start date: 04/02/13 20:45:00, Duration: 30 day, Stop date: 05/02/13 17:00:00 hydrALAZINE 10 mg, 0.5 mL, IVP No Longer [facility] Route: IVP, Drug Active 2012 Medical form: INJ, Q4H, Center Dosing Weight 90, kg, PRN Hypertension, Start date: 04/02/13 20:37:00, Duration: 30 day, Stop date: 05/02/13 20:36:00 lisinopril 20 mg, 1 tab, PO No Longer [facility] Route: PO, Drug Active 2012 Medical form: TAB, Center Daily, Dosing Weight 90, kg, Start date: 04/02/13 20:30:00, Duration: 30 day, Stop date: 05/02/13 9:00:00 metoprolol 12.5 mg, 1 ea, PO No Longer [facility] tartrate Route: PO, Drug Active 2012 Medical form: TAB, BID, Center Dosing Weight 90, kg, Start date: 04/02/13 20:30:00, Duration: 30 day, Stop date: 05/02/13 17:00:00 insulin aspart 8 unit, 0.08 mL, SUB-Q No Longer [facility] Route: SUB-Q, Active 2012 Medical Drug form: SOLN, Center TID-Before Meals, Dosing Weight 90, kg, PRN Blood Glucose Results, Start date: 04/02/13 20:30:00, Duration: 30 day, Stop date: 05/02/13 20:29:00 glucagon 1 mg, Route: IM, IM No Longer [facility] Drug form: Active 2012 Medical PDR/INJ, PRN, Center Dosing Weight 90, kg, PRN Blood Glucose Results, Start date: 04/02/13 20:30:00, Duration: 30 day, Stop date: 05/02/13 20:29:00 Dextrose 50% 25 gm, 50 mL, IVP No Longer [facility] Syringe Route: IVP, Drug Active 2012 Medical Form: INJ, Center Dosing Weight 90, kg, PRN, PRN Blood Glucose Results, Start date: 04/02/13 20:30:00, Duration: 30 day, Stop date: 05/02/13 20:29:00 Insulin regular 8 unit, Route: SUB-Q No Longer [facility] SUB-Q, Active 2012 Medical TID-Before Center Meals, Dosing Weight 90, kg, PRN Blood Glucose Results, Start date: 04/02/13 20:29:00, Duration: 30 day, Stop date: 05/02/13 20:28:00 glucagon 1 mg, Route: IM, IM No Longer [facility] PRN, Dosing Active 2012 Medical Weight 90, kg, Center PRN Blood Glucose Results, Start date: 04/02/13 20:29:00, Duration: 30 day, Stop date: 05/02/13 20:28:00 Dextrose 50% 50 mL, Route: IVP No Longer [facility] 04/03[facility] Syringe IVP, Dosing Active 2012 Medical Weight 90, kg, Center PRN, PRN Blood Glucose Results, Start date: 04/02/13 20:29:00, Duration: 30 day, Stop date: 05/02/13 20:28:00 Zofran 4 mg, 2 mL, IV No Longer [facility] Route: IV, Drug Active 2012 Medical form: INJ, Q8H, Center Dosing Weight 90, kg, PRN Nausea, Start date: 04/02/13 20:29:00, Duration: 30 day, Stop date: 05/02/13 20:28:00 Maalox Advanced 30 mL, Route: PO No Longer [facility] Regular PO, Drug Form: Active 2012 Medical Strength SUSP SUSP, Dosing Center Weight 90, kg, QID, PRN Indigestion, Start date: 04/02/13 20:28:00, Duration: 30 day, Stop date: 05/02/13 20:27:00 Flexeril 10 mg, 1 tab, PO No Longer [facility] Route: PO, Drug Active 2012 Medical form: TAB, TID, Center Dosing Weight 90, kg, PRN Spasm, Start date: 04/02/13 20:22:00, Duration: 30 day, Stop date: 05/02/13 20:21:00 acetaminophen-h 1 tab, Route: PO No Longer [facility] ydrocodone 325 PO, Drug Form: Active 2012 Medical mg-5 mg oral TAB, Dosing Center tablet Weight 90, kg, Q4H, PRN Pain, Start date: 04/02/13 20:22:00, Duration: 30 day, Stop date: 05/02/13 20:21:00 Phenergan 12.5 mg, 0.5 mL, IVPB No Longer [facility] Route: IVPB, Active 2012 Medical Drug form: INJ, Center ONCE, Dosing Weight 90, kg, Start date: 04/02/13 20:11:00, Stop date: 04/02/13 20:11:00 morphine 4 mg, 1 mL, IVP No Longer [facility] Sulfate Route: IVP, Drug Active 2012 Medical form: INJ, ONCE, Center Dosing Weight 90, kg, Start date: 04/02/13 20:10:00, Stop date: 04/02/13 20:10:00 Phenergan 12.5 mg, 0.5 mL, IVPB No Longer [facility] Route: IVPB, Active 2012 Medical Drug form: INJ, Center ONCE, Dosing Weight 90, kg, Priority: STAT, Start date: 04/02/13 17:11:00, Stop date: 04/02/13 17:11:00 Zofran 4 mg, 2 mL, IVP No Longer [facility] Route: IVP, Drug Active 2012 Medical form: INJ, ONCE, Center Dosing Weight 90, kg, Priority: STAT, Start date: 04/02/13 16:52:00, Stop date: 04/02/13 16:52:00 nitroglycerin 0.4 mg, 1 tab, SL No Longer [facility] Route: SL, Drug Active 2012 Medical form: TAB, Center Q5Min, Dosing Weight 90, kg, PRN Chest Pain, Priority: STAT, Start date: 04/02/13 16:31:00, Duration: 3 doses or times, Stop date: Limited # of times aspirin 325 mg, 1 tab, PO No Longer [facility] Route: PO, Drug Active 2012 Medical form: ECTAB, Center ONCE, Dosing Weight 90, kg, Priority: STAT, Start date: 04/02/13 16:31:00, Stop date: 04/02/13 16:31:00 morphine 4 mg, 1 mL, IVP No Longer [facility] Sulfate Route: IVP, Drug Active 2012 Medical form: INJ, ONCE, Center Dosing Weight 90, kg, Start date: 04/02/13 16:30:00, Stop date: 04/02/13 16:30:00 erythromycin 1 cap, PO, Q12H, PO Active [facility] 250 mg oral 14 cap, 2012 Medical enteric coated Substitution Center tablet Allowed, ECTAB GI cocktail 30 ml, Route: PO No Longer [facility] PO, Drug Form: Active 2012 Medical SUSP, Dosing Center Weight 90, kg, ONCE, Routine, Start date: 03/08/13 16:26:00, Stop date: 03/08/13 16:26:00 erythromycin 250 mg, 1 cap, PO No Longer [facility] 250 mg oral Route: PO, Drug Active 2012 Medical enteric coated form: ECCAP, [place] tablet Q12H, Dosing Weight 90, kg, Start [...] SUB-Q, Active 2012 Medical Drug form: SOLN, [place] ONCE, Dosing Weight 90, kg, Start date: 03/08/13 3:17:00, Stop date: 03/08/13 3:17:00 Zocor 40 mg, 1 tab, PO No Longer [facility] Route: PO, Drug Active 2012 Medical form: TAB, Center Bedtime, Dosing Weight 90, kg, Start date: 03/07/13 21:00:00, Duration: 30 day, Stop date: 04/05/13 21:00:00 Cymbalta 120 mg, 2 cap, PO No Longer [facility] Route: PO, Drug Active 2012 Medical [...] unit, 0.1 mL, SUB-Q No Longer [facility] Route: SUB-Q, Active 2012 Medical Drug form: SOLN, Center ONCE, Dosing Weight 90, kg, Start date: 03/07/13 19:16:00, Stop date: 03/07/13 19:16:00 Lyrica 150 mg, 2 cap, PO No Longer [facility] Route: PO, Drug Active 2012 Medical form: CAP, BID, Center Dosing Weight 90, kg, Start date: 03/07/13 17:00:00, Duration: 30 day, Stop date: 04/06/13 9:00:00 Protonix 40 mg, 1 tab, PO No Longer [facility] Route: PO, Drug Active 2012 Medical form: ECTAB, Center BID, Dosing Weight 90, kg, Start date: 03/07/13 17:00:00, Duration: 30 day, Stop date: 04/06/13 9:00:00 meloxicam 7.5 mg, 1 tab, PO No Longer [facility] Route: PO, Drug Active 2012 Medical form: TAB, Center BID-Meals, Dosing Weight 90, kg, Start date: 03/07/13 17:00:00, Duration: 30 day, Stop date: 04/06/13 8:00:00 Flexeril 10 mg, 1 tab, PO No Longer [facility] Route: PO, Drug Active 2012 Medical form: TAB, BID, Center Dosing Weight 90, kg, Start date: 03/07/13 17:00:00, Duration: 30 day, Stop date: 04/06/13 9:00:00 NovoLog FlexPen 6 unit, 0.06 mL, SUB-Q No Longer [facility] Route: SUB-Q, Active 2012 Medical Drug form: SOLN, Center TID-Before Meals, Start date: 03/07/13 16:30:00, Duration: 30 day, Stop date: 04/06/13 11:30:00 Humalog 6 unit, Route: SUB-Q No Longer [facility] SUB-Q, Active 2012 Medical TID-Before Center Meals, Dosing Weight 90, kg, Start date: 03/07/13 16:30:00, Duration: 30 day, Stop date: 04/06/13 11:30:00 heparin 5,000 unit, 1 SUB-Q No Longer [facility] mL, Route: Active 2012 Medical SUB-Q, Drug Center form: INJ, Q8H, Dosing Weight 90, kg, Start date: 03/07/13 16:00:00, Duration: 30 day, Stop date: 04/06/13 8:00:00 Effient 10 mg, 1 tab, PO No Longer [facility] Route: PO, Drug Active 2012 Medical form: TAB, Center Daily, Dosing Weight 90, kg, Start date: 03/07/13 13:30:00, Duration: 30 day, Stop date: 04/06/13 9:00:00 magnesium oxide 400 mg, 1 tab, PO No Longer [facility] Route: PO, Drug Active 2012 Medical form: TAB, Center Daily, Dosing Weight 90, kg, Start date: 03/07/13 13:30:00, Duration: 30 day, Stop date: 04/06/13 9:00:00 lisinopril 20 mg, 1 tab, PO No Longer [facility] Route: PO, Drug Active 2012 Medical form: TAB, Center Daily, Dosing Weight 90, kg, Start date: 03/07/13 13:30:00, Duration: 30 day, Stop date: 04/06/13 9:00:00 Reglan 5 mg, 1 tab, PO No Longer [facility] Route: PO, Drug Active 2012 Medical form: TAB, TID, Center Dosing Weight 90, kg, Start date: 03/07/13 13:00:00, Duration: 30 day, Stop date: 04/06/13 9:00:00 ferrous sulfate 325 mg, 1 tab, PO No Longer [facility] Route: PO, Drug Active 2012 Medical form: ECTAB, Center TID, Dosing Weight 90, kg, Start date: 03/07/13 13:00:00, Duration: 30 day, Stop date: 04/06/13 9:00:00 clonazepam 0.5 mg, 1 tab, PO No Longer [facility] Route: PO, Drug Active 2012 Medical form: TAB, TID, Center Dosing Weight 90, kg, Start date: 03/07/13 13:00:00, Duration: 30 day, Stop date: 04/06/13 9:00:00 NovoLog 6 unit, SUB-Q, SUB-Q No Longer [place] TID-Before Active 2012 Medical Meals, Center Substitution Allowed Levemir 12 unit, SUB-Q, SUB-Q Active [place] BID, 2012 Medical Substitution Center Allowed NS 1,000 mL 1,000 mL, Rate: IV No Longer [facility] [place] 125 ml/hr, Active 2012 Medical Infuse over: 8 Center hr, Route: IV, Dosing Weight 90 kg, Total Volume: 1,000, Start date: 03/07/13 12:19:00, Duration: 30 day, Stop date: 04/06/13 12:18:00 insulin aspart 2 unit, 0.02 mL, SUB-Q No Longer [facility] Route: SUB-Q, Active 2012 Medical Drug form: SOLN, Center TID-Before Meals, Dosing Weight 90, kg, PRN Blood Glucose Results, Start date: 03/07/13 11:55:00, Duration: 30 day, Stop date: 04/06/13 11:54:00 glucagon 1 mg, Route: IM, IM No Longer [facility] Drug form: Active 2012 Medical PDR/INJ, PRN, Center Dosing Weight 90, kg, PRN Blood Glucose Results, Start date: 03/07/13 11:55:00, Duration: 30 day, Stop date: 04/06/13 11:54:00 Dextrose 50% 12.5 gm, 25 mL, IVP No Longer [facility] Syringe Route: IVP, Drug Active 2012 Medical Form: INJ, Center Dosing Weight 90, kg, PRN, PRN Blood Glucose Results, Start date: 03/07/13 11:55:00, Duration: 30 day, Stop date: 04/06/13 11:54:00 Phenergan 12.5 mg, 0.5 mL, IVPB No Longer [facility] Route: IVPB, Active 2012 Medical Drug form: INJ, Center Q4H, Dosing Weight 90, kg, PRN Nausea & Vomiting, Start date: 03/07/13 11:53:00, Duration: 30 day, Stop date: 04/06/13 11:52:00 albuterol 2.49 mg, 3 mL, NEB No Longer [facility] 0.083% Route: NEB, Drug Active 2012 Medical inhalation form: SOLN, Center solution RQ4H, Dosing Weight 90, kg, PRN as needed for wheezing, Start date: 03/07/13 11:53:00, Duration: 30 day, Stop date: 04/06/13 11:52:00 Zofran 4 mg, 2 mL, IVP No Longer [facility] Route: IVP, Drug Active 2012 Medical form: INJ, Q4H, Center Dosing Weight 90, kg, PRN Nausea, Start date: 03/07/13 11:53:00, Duration: 30 day, Stop date: 04/06/13 11:52:00 acetaminophen-h 1 tab, Route: PO No Longer [facility] ydrocodone 325 PO, Drug Form: Active 2012 Medical mg-10 mg oral TAB, Dosing Center tablet Weight 90, kg, Q4H, PRN Pain Score 4-6, Start date: 03/07/13 11:51:00, Duration: 30 day, Stop date: 04/06/13 11:50:00 acetaminophen-h 1 tab, Route: PO No Longer [facility] ydrocodone 325 PO, Drug Form: Active 2012 Medical mg-5 mg oral TAB, Dosing Center tablet Weight 90, kg, Q4H, PRN Pain Score 1-3, Start date: 03/07/13 11:51:00, Duration: 30 day, Stop date: 04/06/13 11:50:00 acetaminophen 650 mg, 2 tab, PO No Longer [facility] Route: PO, Drug Active 2012 Medical form: TAB, Q4H, Center Dosing Weight 90, kg, PRN Pain 1-3/Temp > 100.4 F, Start date: 03/07/13 11:51:00, Duration: 30 day, Stop date: 04/06/13 11:50:00 morphine 2 mg, 1 mL, IVP No Longer [facility] Sulfate Route: IVP, Drug Active 2012 Medical form: INJ, Q4H, Center Dosing Weight 90, kg, PRN Pain Score 7-10, Start date: 03/07/13 11:51:00, Duration: 30 day, Stop date: 04/06/13 11:50:00 docusate 100 mg, 1 cap, PO No Longer [facility] Route: PO, Drug Active 2012 Medical form: CAP, BID, Center Dosing Weight 90, kg, PRN Constipation, Start date: 03/07/13 11:51:00, Duration: 30 day, Stop date: 04/06/13 11:50:00 Levemir 12 unit, 0.12 SUB-Q No Longer [facility] mL, Route: Active 2012 Medical SUB-Q, Drug Center form: INJ, ONCE, Dosing Weight 90, kg, Start date: 03/07/13 6:10:00, Stop date: 03/07/13 6:10:00 lidocaine-epi 1 ml, Route: SUB-Q No Longer [facility] [id number] SUB-Q, Drug Active 2012 Medical Form: SOLN, Center Dosing Weight 90, kg, ONCE, STAT, Start date: 03/07/13 5:18:00, Stop date: 03/07/13 5:18:00 Insulin regular 99 mL, Rate: IVPB No Longer [facility] 100 unit + Start Insulin Active [...] gm, 25 mL, IVP No Longer [facility] Syringe Route: IVP, Drug Active 2012 Medical Form: INJ, Center Dosing Weight 90, kg, PRN, PRN Blood Glucose Results, Start date: 03/07/13 5:13:00, Duration: 30 day, Stop date: 04/06/13 5:12:00 NS (Bolus) IV 1,000 mL, Rate: IV No Longer [facility] [place] 1,000 mL 1,000 ml/hr, 2012 Medical Infuse over: 1 Center hr, Route: IV, Dosing Weight 90 kg, Total Volume: 1,000, Priority: STAT, Start date: 03/07/13 2:36:00, Duration: 1 doses or times, Stop date: 03/07/13 3:35:00, Bolus DoseBolus Dose magnesium 2 gm, 50 mL, IVPB No Longer [facility] [place] sulfate Route: IVPB, 2012 Medical Drug form: INJ, Center ONCE, Dosing Weight 90, kg, Start date: 03/07/13 2:35:00, Stop date: 03/07/13 2:35:00 Insulin regular 10 unit, 0.1 mL, SUB-Q No Longer [facility] Route: SUB-Q, 2012 Medical Drug form: SOLN, Center ONCE, Dosing Weight 90, kg, Priority: STAT, Start date: 03/07/13 2:16:00, Stop date: 03/07/13 2:16:00 Reglan 10 mg, 2 mL, IVP No Longer [facility] [place] Route: IVP, Drug 2012 Medical form: INJ, ONCE, Center Dosing Weight 90, kg, Priority: STAT, Start date: 03/07/13 2:16:00, Stop date: 03/07/13 2:16:00 NS 1,000 mL 1,000 mL, Rate: IV No Longer [facility] [place] 150 ml/hr, 2012 Medical Infuse over: 6.7 Center hr, Route: IV, Dosing Weight 90 kg, Total Volume: 1,000, Start date: 03/07/13 2:15:00, Duration: 30 day, Stop date: 04/06/13 2:14:00 droperidol 1.25 mg, Route: IVP No Longer [facility] IVP, ONCE, 2012 Medical Dosing Weight Center 90, kg, PRN Nausea & Vomiting, Start date: 03/07/13 0:48:00 D5W 1/2NS 1,000 1,000 mL, Rate: IV No Longer [facility] [place] mL 125 ml/hr, 2012 Medical Infuse over: 8 Center hr, Route: IV, Dosing Weight 90 kg, Total Volume: 1,000, Start date: 03/07/13 0:43:00, Duration: 30 day, Stop date: 04/06/13 0:42:00 Insulin regular 4 unit, 0.04 mL, SUB-Q No Longer [facility] Route: SUB-Q, Active 2012 Medical Drug form: SOLN, Center Sliding Scale, Dosing Weight 90, kg, PRN Blood Glucose Results, Start date: 03/07/13 0:01:00, Duration: 30 day, Stop date: 04/06/13 0:00:00 glucagon 1 mg, Route: IM, IM No Longer [facility] Drug form: Active 2012 Medical PDR/INJ, PRN, Center Dosing Weight 90, kg, PRN Blood Glucose Results, Start date: 03/07/13 0:01:00, Duration: 30 day, Stop date: 04/06/13 0:00:00 Dextrose 50% 25 gm, 50 mL, IVP No Longer [facility] Syringe Route: IVP, Drug Active 2012 Medical Form: INJ, Center Dosing Weight 90, kg, PRN, PRN Blood Glucose Results, Start date: 03/07/13 0:01:00, Duration: 30 day, Stop date: 04/06/13 0:00:00 NS 1,000 mL 1,000 mL, Rate: IV No Longer [facility] 125 ml/hr, Active 2012 Medical Infuse over: 8 Center hr, Route: IV, Dosing Weight 90 kg, Total Volume: 1,000, Start date: 03/06/13 23:21:00, Duration: 30 day, Stop date: 04/05/13 23:20:00 NS (Bolus) IV 1,000 mL, Rate: IV No Longer [facility] 1,000 mL 1,000 ml/hr, Active 2012 Medical Infuse over: 1 Center hr, Route: IV, Dosing Weight 90 kg, Total Volume: 1,000, Priority: STAT, Start date: 03/06/13 23:21:00, Duration: 1 doses or times, Stop date: 03/07/13 0:20:00, Bolus DoseBolus Dose [place] 5/325 1 tab, PO, Q6H, PO No Longer [facility] oral tablet PRN, 30 tab, Active 2012 Medical Substitution Center Allowed, Maintenance ferrous sulfate 325 mg, 1 tab, PO Active [facility] 325 mg oral PO, TID, 30 tab, 2012 Medical enteric coated Substitution Center tablet Allowed, ECTAB acetaminophen-h 1 tab, PO, Q4H, PO Active [facility] ydrocodone 500 PRN, for pain, 2012 Medical mg-7.5 mg oral Substitution Center tablet Allowed, Maintenance, TAB meloxicam 7.5 7.5 mg, 1 tab, PO Active [facility] mg oral tablet PO, BID, WITH 2012 Medical FOOD, 30 tab, Center Substitution Allowed, TABWITH FOOD Zocor 40 mg 40 mg, 1 tab, PO Active [facility] oral tablet PO, Bedtime, 30 2012 Medical tab, Center Substitution Allowed, Maintenance ProAir HFA 90 Substitution Active [facility] mcg/inh Allowed, 2012 Medical inhalation Maintenance Center aerosol with adapter Flexeril 10 mg 10 mg, 1 tab, PO Active [facility] oral tablet PO, TID, PRN, 30 2012 Medical tab, for spasm, Center Substitution Allowed, TAB Protonix 40 mg 40 mg, 1 tab, PO Active [facility] oral enteric PO, BID, 30 tab, 2012 Medical coated tablet Substitution Center Allowed, ECTAB Lyrica 150 mg 150 mg, 1 cap, PO Active [facility] oral capsule PO, BID, 90 cap, 2012 [facility] Substitution [place] Allowed, CAP Flagyl 500 mg 500 mg, 1 tab, PO No Longer [facility] oral tablet PO, Q6H, 30 tab, Active 2012 [facility] Substitution [place] Allowed metoclopramide 10 mg, 1 tab, PO Active [facility] 10 mg oral PO, TID, 56 tab, 2012 Medical tablet Substitution Center Allowed, TAB NS (Bolus) IV 1,000 mL, Rate: IV No Longer [facility] 1,000 mL 1,000 ml/hr, Active 2012 Medical Infuse over: 1 Center hr, Route: IV, Dosing Weight 90 kg, Total Volume: 1,000, Priority: STAT, Start date: 03/06/13 21:27:00, Duration: 1 doses or times, Stop date: 03/06/13 22:26:00, Bolus DoseBolus Dose morphine 4 mg, 1 mL, IVP No Longer [facility] Sulfate Route: IVP, Drug Active 2012 Medical form: INJ, ONCE, Center Dosing Weight 90, kg, Start date: 03/06/13 21:27:00, Stop date: 03/06/13 21:27:00 Phenergan 12.5 mg, 0.5 mL, IVPB No Longer [facility] Route: IVPB, Active 2012 Medical Drug form: INJ, Center ONCE, Dosing Weight 90, kg, Priority: STAT, Start date: 03/06/13 21:26:00, Stop date: 03/06/13 21:26:00 ergocalciferol 50,000 IntlUnit, PO No Longer [facility] 1 cap, Route: Active 2012 Medical PO, Drug form: Center CAP, qWeek, Dosing Weight 100, kg, Start date: 12/07/12 9:00:00, Duration: 30 day, Stop date: 01/04/13 9:00:00 erythromycin 250 mg, 1 tab, PO Active [facility] stearate 250 mg PO, Q6H, 56 tab, 2012 Medical oral tablet Substitution Center Allowed, TAB Protonix 40 mg 40 mg, 1 tab, PO Active [facility] oral enteric PO, Daily, 2012 Medical coated tablet tab, Center Substitution Allowed, ECTAB pravastatin 80 80 mg, 1 tab, PO Active [facility] mg oral tablet PO, Daily, 2012 Medical tab, Center Substitution Allowed, TAB insulin detemir 14 unit, 0.14 SUB-Q Active [facility] 100 units/mL mL, SUB-Q, 2012 Medical subcutaneous Bedtime, 100 mL, [place] solution Substitution Allowed, INJ insulin detemir 16 unit, 0.16 SUB-Q Active [facility] 100 units/mL mL, SUB-Q, 2012 Medical subcutaneous Daily, 100 mL, Center solution Substitution Allowed, INJ Protonix 40 mg, Route: IVP No Longer [facility] IVP, Drug form: Active 2012 Medical INJ, Daily, Center Dosing Weight 100, kg, Priority: NOW, Start date: 12/06/12 16:52:00, Duration: 30 day, Stop date: 01/05/13 9:00:00 insulin detemir 16 unit, 0.16 SUB-Q No Longer [facility] mL, Route: Active 2012 Medical SUB-Q, Drug Center form: INJ, Daily, Dosing Weight 100, kg, Start date: 12/06/12 9:00:00, Stop date: 01/04/13 9:00:00 [place] 7.5/325 1 tab, Route: PO No Longer [facility] oral tablet PO, Drug Form: Active 2012 Medical TAB, Dosing Center Weight 100, kg, ONCE, Start date: 12/06/12 0:19:00, Stop date: 12/06/12 0:19:00 Pravachol 80 mg, 4 tab, PO No Longer [facility] Route: PO, Drug Active 2012 Medical form: TAB, Center Bedtime, Start date: 12/05/12 21:00:00, Duration: 30 day, Stop date: 01/03/13 21:00:00 insulin detemir 14 unit, 0.14 SUB-Q No Longer [facility] mL, Route: Active 2012 Medical SUB-Q, Drug Center form: INJ, Bedtime, Dosing Weight 100, kg, Start date: 12/05/12 21:00:00, Stop date: 01/03/13 21:00:00 morphine 4 mg, 1 mL, IVP No Longer [facility] Sulfate Route: IVP, Drug Active 2012 Medical form: INJ, ONCE, Center Dosing Weight 100, kg, Start date: 12/05/12 16:51:00, Stop date: 12/05/12 16:51:00 erythromycin + 250 mg, Route: IVPB No Longer [facility] Sodium Chloride IVPB, Q8H, Active 2012 Medical 0.9% IV 100 mL Dosing Weight Center 100, kg, Start date: 12/05/12 16:00:00, Duration: 30 day, Stop date: 01/04/13 8:00:00 potassium 20 mEq, 100 mL, IVPB No Longer [facility] chloride Route: IVPB, Active 2012 Medical [...] 12/04/12 8:20:00 Phenergan 25 mg, 1 supp, IA No Longer [facility] Route: IA, Drug Active 2012 Medical form: SUPP, Q4H, Center Dosing Weight 100, kg, PRN Nausea & Vomiting, Start date: 12/04/12 7:58:00, Duration: 30 day, Stop date: 01/03/13 7:57:00 Dextrose 50% 25 gm, 50 mL, IVP No Longer [facility] Syringe Route: IVP, Drug Active 2012 Medical Form: INJ, Center Dosing Weight 100, kg, PRN, PRN Blood Glucose Results, Start date: 12/04/12 7:48:00, Duration: 30 day, Stop date: 01/03/13 7:47:00 glucagon 1 mg, Route: IM, IM No Longer [facility] [place] Drug form: Active 2012 Medical PDR/INJ, PRN, Center Dosing Weight 100, kg, PRN Blood Glucose Results, Start date: 12/04/12 7:48:00, Duration: 30 day, Stop date: 01/03/13 7:47:00 insulin aspart 4 unit, 0.04 mL, SUB-Q No Longer [facility] [place] Route: SUB-Q, Active 2012 Medical Drug form: SOLN, Center Bedtime, Dosing Weight 100, kg, PRN Blood Glucose Results, Start date: 12/04/12 7:48:00, Duration: 30 day, Stop date: 01/03/13 7:47:00 Protonix 40 mg, Route: IV No Longer [facility] IV, Drug form: Active 2012 Medical INJ, ONCE, Center Dosing Weight 100, kg, Start date: 12/04/12 3:12:00, Stop date: 12/04/12 3:12:00 potassium 20 mEq, 100 mL, IVPB No Longer [facility] chloride Route: IVPB, Active 2012 Medical Q2H, Start date: Center 12/03/12 8:00:00, Stop date: 12/03/12 11:00:00 potassium 40 mEq, Route: IV No Longer [facility] chloride IV, ONCE, Dosing Active 2012 Medical Weight 100, kg, Center Start date: 12/03/12 7:02:00, Stop date: 12/03/12 7:02:00 NS 1,000 mL 1,000 mL, Rate: IV No Longer [facility] 125 ml/hr, Active 2012 Medical Infuse over: 8 Center hr, Route: IV, kg, Total Volume: 1,000, Start date: 12/02/12 16:54:00, Duration: 30 day, Stop date: 01/01/13 16:53:00 NS (Bolus) IV 1,000 mL, Rate: IV No Longer [facility] 1,000 mL 1,000 ml/hr, Active 2012 Medical Infuse over: 1 Center hr, Route: IV, kg, Total Volume: 1,000, Priority: STAT, Start date: 12/02/12 13:12:00, Duration: 1 doses or times, Stop date: 12/02/12 14:11:00, Bolus DoseBolus Dose NS (Bolus) IV 1,000 mL, Rate: IV No Longer [facility] 1,000 mL 1,000 ml/hr, Active 2012 Medical Infuse over: 1 Center hr, Route: IV, kg, Total Volume: 1,000, Priority: STAT, Start date: 12/02/12 12:10:00, Duration: 1 doses or times, Stop date: 12/02/12 13:09:00, Bolus DoseBolus Dose insulin detemir 20 unit, 0.2 mL, SUB-Q No Longer [facility] Route: SUB-Q, Active 2012 Medical Drug form: INJ, Center BID, Dosing Weight 100, kg, Start date: 12/02/12 9:00:00, Duration: 30 day, Stop date: 12/31/12 21:00:00 calcium 1,000 mg, 10 mL, IVPB No Longer [facility] chloride + Route: IVPB, Active 2012 Medical Sodium Chloride ONCE, Start Center 0.9% IV 100 mL date: 12/02/12 5:08:00, Stop date: 12/02/12 5:08:00 ceftriaxone 1 gm, Route: IVPB No Longer [facility] IVPB, Drug form: Active 2012 Medical PDR/INJ, Center [id number], Dosing Weight 100, kg, Start date: 12/02/12 5:00:00, Duration: 30 day, Stop date: 12/31/12 5:00:00 calcium 1,000 mg, Route: IVPB No Longer [facility] gluconate IVPB, Drug form: Active 2012 Medical INJ, ONCE, Center Dosing Weight 100, kg, Start date: 12/02/12 5:00:00, Stop date: 12/02/12 5:00:00 Dextrose 50% 25 mL, Route: IVP No Longer [facility] Syringe IVP, Dosing Active 2012 Medical Weight 100, kg, Center PRN, PRN Blood Glucose Results, Start date: 12/02/12 4:51:00, Duration: 30 day, Stop date: 01/01/13 4:50:00 Insulin regular 100 mL, Rate: IVPB No Longer [facility] 100 unit + Start Insulin Active [...] 4 mg, Route: IVP No Longer [facility] IVP, Drug form: Active 2012 Medical [...] unit, 0.06 mL, IV No Longer [facility] Route: IV, Drug Active 2012 [facility], Dosing Weight 100, kg, Priority: STAT, Start date: 12/02/12 3:19:00, Stop date: 12/02/12 3:19:00 insulin aspart 3 unit, 0.03 mL, SUB-Q No Longer [facility] Route: SUB-Q, Active 2012 Medical Drug form: SOLN, Center Bedtime, Dosing Weight 100, kg, PRN Blood Glucose Results, Start date: 12/01/12 13:23:00, Duration: 30 day, Stop date: 12/31/12 13:22:00 NS 1,000 mL 1,000 mL, Rate: IV No Longer [facility] 150 ml/hr, Active 2012 Medical Infuse over: 6.7 Center hr, Route: IV, kg, Total Volume: 1,000, Priority: NOW, Start date: 12/01/12 13:10:00, Duration: 1 doses or times, Stop date: 12/01/12 19:51:00 Insulin regular 2 unit, 0.02 mL, SUB-Q No Longer [facility] Route: SUB-Q, Active 2012 Medical Drug form: SOLN, Center Bedtime, Dosing Weight 100, kg, PRN Blood Glucose Results, Start date: 12/01/12 13:08:00, Duration: 30 day, Stop date: 12/31/12 13:07:00 insulin aspart 4 unit, 0.04 mL, SUB-Q No Longer [facility] Route: SUB-Q, Active 2012 Medical Drug form: SOLN, Center TID-Before Meals, Dosing Weight 100, kg, PRN Blood Glucose Results, Start date: 12/01/12 13:08:00, Duration: 30 day, Stop date: 12/31/12 13:07:00 Dextrose 50% 25 gm, 50 mL, IVP No Longer [facility] Syringe Route: IVP, Drug Active 2012 Medical Form: INJ, Center Dosing Weight 100, kg, PRN, PRN Blood Glucose Results, Start date: 12/01/12 13:08:00, Duration: 30 day, Stop date: 12/31/12 13:07:00 glucagon 1 mg, Route: IM, IM No Longer [facility] Drug form: Active 2012 Medical PDR/INJ, [...] 16 unit, 0.16 SUB-Q No Longer [facility] mL, Route: Active 2012 Medical SUB-Q, Drug Center form: INJ, Q12H, Dosing Weight 100, kg, Start date: 11/30/12 14:00:00, Duration: 30 day, Stop date: 12/30/12 9:00:00 Zofran 4 mg, 2 mL, IV No Longer [facility] Route: IV, Drug Active 2012 Medical form: INJ, Q6H, Center Dosing Weight 100, kg, PRN Nausea, Start date: 11/30/12 13:32:00, Duration: 30 day, Stop date: 12/30/12 13:31:00 insulin aspart 10 unit, 0.1 mL, SUB-Q No Longer [facility] Route: SUB-Q, Active 2012 Medical Drug form: SOLN, Center TID-Before Meals, Dosing Weight 100, kg, PRN Blood Glucose Results, Start date: 11/30/12 13:26:00, Duration: 30 day, Stop date: 12/30/12 13:25:00 Zofran 4 mg, 2 mL, IV No Longer [facility] Route: IV, Drug Active 2012 Medical form: INJ, Q8H, Center Dosing Weight 100, kg, PRN Nausea, Start date: 11/30/12 11:58:00, Duration: 30 day, Stop date: 12/30/12 11:57:00 Zofran 4 mg, 2 mL, IVP No Longer [facility] Route: IVP, Drug Active 2012 Medical form: INJ, ONCE, Center Dosing Weight 100, kg, Priority: NOW, Start date: 11/30/12 11:57:00, Stop date: 11/30/12 11:57:00 potassium 2 pkt, Route: PO No Longer [facility] phosphate-sodiu PO, Drug Form: Active 2012 Medical m phosphate 250 PDR/REC, ONCE, Center mg-278 mg-164 Start date: mg oral powder 11/30/12 10:00:00, Stop date: 11/30/12 10:00:00 Dextrose 5% 1,000 mL, Rate: IV No Longer [facility] with 0.45% NaCl 150 ml/hr, Active 2012 Medical IV 1,000 mL Infuse over: 6.7 Center hr, Route: IV, kg, Total Volume: 1,000, Start date: 11/30/12 9:12:00, Duration: 30 day, Stop date: 12/30/12 9:11:00 insulin detemir 16 unit, 0.16 SUB-Q No Longer [facility] 11/30[facility] mL, Route: Active 2012 Medical SUB-Q, Drug Center form: INJ, Q12H, Dosing Weight 100, kg, Start date: 11/30/12 9:00:00, Duration: 30 day, Stop date: 12/29/12 21:00:00 heparin 5,000 unit, 1 SUB-Q No Longer [facility] 11/30[facility] mL, Route: Active 2012 Medical SUB-Q, Drug Center form: INJ, Q8H, Dosing Weight 100, kg, Start date: 11/30/12 8:30:00, Duration: 30 day, Stop date: 12/30/12 8:00:00 magnesium 2 gm, Route: IVPB No Longer [facility] 11/30[facility] sulfate IVPB, Drug form: Active [...] 5000 5,000 unit, SUB-Q No Longer [facility] [place] units/mL Route: SUB-Q, Active 2012 Medical [...] mg, Route: IM, IM No Longer [facility] Drug form: Active 2012 Medical PDR/INJ, [...] 5,000 unit, 1 SUB-Q No Longer [facility] 11/30[facility] units/mL mL, Route: Active 2012 Medical [...] mg, 1 tab, PO No Longer [facility] Route: PO, Drug Active 2012 Medical form: TAB, Center Bedtime, Dosing Weight 101.364, kg, Start date: 11/29/12 21:00:00, Duration: 30 day, Stop date: 12/28/12 21:00:00 Cymbalta 60 mg, 1 cap, PO No Longer [facility] Route: PO, Drug Active 2012 Medical form: DRC, Center Bedtime, Dosing Weight 101.364, kg, Start date: 11/29/12 21:00:00, Stop date: 12/28/12 21:00:00 ceftriaxone 1 gm, Route: IVPB No Longer [facility] IVPB, Drug form: Active 2012 Medical PDR/INJ, Center [id number], Dosing Weight 100, kg, Start date: 11/29/12 20:00:00, Duration: 30 day, Stop date: 12/28/12 20:00:00 hydrALAZINE 5 mg, 0.25 mL, IV No Longer [facility] Route: IV, Drug Active 2012 Medical form: INJ, Q4H, Center Dosing Weight 100, kg, PRN Hypertension, Start date: 11/29/12 19:42:00, Duration: 30 day, Stop date: 12/29/12 19:41:00 Phenergan 12.5 mg, 0.5 mL, IVPB No Longer [facility] Route: IVPB, Active 2012 Medical Drug form: INJ, Center Q4H, Dosing Weight 100, kg, PRN Nausea & Vomiting, Start date: 11/29/12 17:56:00, Duration: 30 day, Stop date: 12/29/12 17:55:00 clonazepam 0.5 mg, 1 tab, PO No Longer [facility] [place] Route: PO, Drug Active 2012 Medical [...] 1,000 mL, Rate: IV No Longer [facility] mL 200 ml/hr, Active 2012 Medical Infuse over: 5 Center hr, Route: IV, kg, Total Volume: 1,000, Start date: 11/29/12 14:41:00, Stop date: 12/29/12 14:40:00 Sodium Chloride 1,000 mL, Rate: IV No Longer [facility] 0.9% IV 1,000 200 ml/hr, Active 2012 Medical mL Infuse over: 5 Center hr, Route: IV, kg, Total Volume: 1,000, Start date: 11/29/12 14:41:00, Stop date: 12/29/12 14:45:00 Insulin regular 99 mL, Rate: IV No Longer [facility] 11/29[facility] 100 unit + Start Insulin Active 2012 Medical Sodium Chloride Drip Per ICU Center 0.9% IV 99 mL protocol, Route: IV, kg, Total Volume: 100, Start date: 11/29/12 12:42:00, Stop date: 12/29/12 12:41:00 Insulin regular 100 mL, Rate: IVPB No Longer [facility] 11/29[facility] 100 unit + Start Insulin Active [...] gm, 25 mL, IVP No Longer [facility] Syringe Route: IVP, Drug Active 2012 Medical Form: INJ, Center Dosing Weight 100, kg, PRN, PRN Blood Glucose Results, Start date: 11/29/12 12:39:00, Duration: 30 day, Stop date: 12/29/12 12:38:00 Zofran 4 mg, 2 mL, IV No Longer [facility] [place] Route: IV, Drug Active 2012 Medical form: INJ, Q4H, Center Dosing Weight 100, kg, PRN as needed for nausea/vomiting, Start date: 11/29/12 9:07:00, Duration: 30 day, Stop date: 12/29/12 9:06:00 NIFEdipine 90 mg, 1 tab, PO No Longer [facility] Route: PO, Drug Active 2012 Medical form: ERTAB, Center Daily, Dosing Weight 101.364, kg, Start date: 11/29/12 9:00:00, Duration: 30 day, Stop date: 12/28/12 9:00:00 clonazepam 0.5 mg, 1 tab, PO No Longer [facility] [place] Route: PO, Drug Active 2012 Medical form: TAB, TID, Center Dosing Weight 101.364, kg, Start date: 11/29/12 9:00:00, Duration: 30 day, Stop date: 12/28/12 17:00:00 lisinopril 20 mg, 1 tab, PO No Longer [facility] Route: PO, Drug Active 2012 Medical form: TAB, Q12H, Center Dosing Weight 101.364, kg, Start date: 11/29/12 9:00:00, Duration: 30 day, Stop date: 12/28/12 21:00:00 magnesium oxide 400 mg, 1 tab, PO No Longer [facility] Route: PO, Drug Active 2012 Medical form: TAB, Center Daily, Dosing Weight 101.364, kg, Start date: 11/29/12 9:00:00, Duration: 30 day, Stop date: 12/28/12 9:00:00 Effient 10 mg, 1 tab, PO No Longer [facility] Route: PO, Drug Active 2012 Medical form: TAB, Center Daily, Dosing Weight 101.364, kg, Start date: 11/29/12 9:00:00, Duration: 30 day, Stop date: 12/28/12 9:00:00 Levemir 8 unit, 0.08 mL, SUB-Q No Longer [facility] Route: SUB-Q, Active 2012 Medical Drug [...] mg, 0.4 mL, SUB-Q No Longer [facility] Route: SUB-Q, Active 2012 Medical Drug form: INJ, Center [id number], Dosing Weight 101.364, kg, Start date: 11/29/12 4:00:00, Duration: 30 day, Stop date: 12/28/12 4:00:00 Phenergan 12.5 mg, 0.25 IVPB No Longer [place] [facility] mL, Route: IVPB, Active 2012 Medical Drug form: INJ, Center Q4H, Dosing Weight 101.364, kg, Start date: 11/29/12 4:00:00, Duration: 30 day, Stop date: 12/29/12 0:00:00 tramadol 50 mg 50 mg, 1 tab, PO No Longer [facility] oral tablet Route: PO, Drug Active 2012 Medical form: TAB, Q4H, Center Dosing Weight 101.364, kg, PRN as needed for pain, Start date: 11/29/12 3:46:00, Duration: 30 day, Stop date: 12/29/12 3:45:00 insulin aspart 3 unit, 0.03 mL, SUB-Q No Longer [facility] Route: SUB-Q, Active 2012 Medical Drug form: SOLN, Center TID-Before Meals, Dosing Weight 101.364, kg, PRN Blood Glucose Results, Start date: 11/29/12 3:26:00, Duration: 30 day, Stop date: 12/29/12 3:25:00 Dextrose 50% 12.5 gm, 25 mL, IVP No Longer [facility] Syringe Route: IVP, Drug Active 2012 Medical Form: INJ, Center Dosing Weight 101.364, kg, PRN, PRN Blood Glucose Results, Start date: 11/29/12 3:26:00, Duration: 30 day, Stop date: 12/29/12 3:25:00 glucagon 1 mg, Route: IM, IM No Longer [facility] Drug form: Active 2012 Medical PDR/INJ, PRN, Center Dosing Weight 101.364, kg, PRN Blood Glucose Results, Start date: 11/29/12 3:26:00, Duration: 30 day, Stop date: 12/29/12 3:25:00 acetaminophen 650 mg, 20.3 mL, PO No Longer [facility] Route: PO, Drug Active 2012 Medical form: LIQ, Q4H, Center Dosing Weight 101.364, kg, PRN Pain 1-3/Temp > 100.4 F, Start date: 11/29/12 3:25:00, Duration: 30 day, Stop date: 12/29/12 3:24:00 docusate 100 mg, 1 cap, PO No Longer [facility] Route: PO, Drug Active 2012 Medical form: CAP, BID, Center Dosing Weight 101.364, kg, PRN Constipation, Start date: 11/29/12 3:25:00, Duration: 30 day, Stop date: 12/29/12 3:24:00 D5W 1/2NS 1,000 1,000 mL, Rate: IV No Longer [facility] mL 75 ml/hr, Infuse Active 2012 Medical over: 13.3 hr, Center Route: IV, kg, Total Volume: 1,000, Start date: 11/29/12 3:21:00, Duration: 30 day, Stop date: 12/29/12 3:20:00 NS 0.45% IV 1,000 mL, Rate: IV No Longer [facility] 1000 mL 125 ml/hr, Active 2012 Medical Infuse over: 8 Center hr, Route: IV, Dosing Weight 101.364 kg, Total Volume: 1,000, Start date: 11/29/12 3:18:00, Duration: 30 day, Stop date: 12/29/12 3:17:00 Reglan 10 mg, 2 mL, IVP No Longer [facility] Route: IVP, Drug Active 2012 Medical form: INJ, ONCE, Center Dosing Weight 101.364, kg, Priority: STAT, Start date: 11/29/12 2:31:00, Stop date: 11/29/12 2:31:00 Zofran 8 mg, Route: IVP No Longer [facility] IVP, Drug form: Active 2012 Medical INJ, ONCE, Center Dosing Weight 101.364, kg, Priority: STAT, Start date: 11/29/12 1:52:00, Stop date: 11/29/12 1:52:00 Lortab 500 5 ml, PO, Q6H, PO No Longer [facility] mg-7.5 mg/15 mL PRN, 120 mL, for Active 2012 Medical oral elixir pain, Center Substitution Allowed, Maintenance, ELIX Phenergan 25 mg 1 supp, IA, Q6H, IA Active [facility] rectal PRN, 9 supp, 2012 Medical suppository Nausea & Center Vomiting, Substitution Allowed Phenergan 12.5 mg, 0.5 mL, IVPB No Longer [facility] Route: IVPB, Active 2012 Medical Drug form: INJ, Center ONCE, Dosing Weight 101.364, kg, Priority: STAT, Start date: 11/29/12 0:56:00, Stop date: 11/29/12 0:56:00 Zofran 4 mg, 2 mL, IVP No Longer [facility] 11/29[facility] Route: IVP, Drug Active 2012 Medical form: INJ, ONCE, Center Dosing Weight 101.364, kg, Priority: STAT, Start date: 11/28/12 23:49:00, Stop date: 11/28/12 23:49:00 Phenergan 12.5 mg, 0.5 mL, IVPB No Longer [place] 11/29[facility] Route: IVPB, Active 2012 Medical Drug form: INJ, Center ONCE, Dosing Weight 101.364, kg, Priority: STAT, Start date: 11/28/12 19:29:00, Stop date: 11/28/12 19:29:00 Zofran 4 mg, 2 mL, IVP No Longer [place] 11/29[facility] Route: IVP, Drug Active 2012 [...] 5 ml, Route: IVP No Longer [facility] 0.9% IVP, Drug Form: Active 2012 Medical INJ, Dosing Center Weight 101.364, kg, PRN, PRN Line Flush, Start date: 11/28/12 19:29:00, Duration: 30 day, Stop date: 12/28/12 19:28:00 calcium 2,000 mg, 20 mL, IVPB No Longer [facility] gluconate + Route: IVPB, Active 2012 Medical Sodium Chloride ONCE, Dosing Center 0.9% IV 80 mL Weight 103.21, kg, Start date: 11/17/12 11:02:00, Stop date: 11/17/12 11:02:00 magnesium 2 gm, 50 mL, IVPB No Longer [facility] sulfate Route: IVPB, Active 2012 Medical Drug form: INJ, Center Q2H, Dosing Weight 103.21, kg, Total dose=4 gm, Start date: 11/17/12 10:00:00, Duration: 2 doses or times, Stop date: 11/17/12 12:00:00 aspirin 81 mg, 1 tab, PO No Longer [facility] Route: PO, Drug Active 2012 Medical form: ECTAB, Center Daily, Dosing Weight 100, kg, Start date: 11/17/12 9:00:00, Duration: 30 day, Stop date: 12/16/12 9:00:00 simvastatin 40 mg, 1 tab, PO No Longer [facility] Route: PO, Drug Active 2012 Medical form: TAB, Center Daily, Dosing Weight 100, kg, Start date: 11/17/12 9:00:00, Duration: 30 day, Stop date: 12/16/12 9:00:00 prasugrel 10 mg, 1 tab, PO No Longer [facility] Route: PO, Drug Active 2012 Medical form: TAB, Center Daily, Dosing Weight 100, kg, Start date: 11/17/12 9:00:00, Duration: 30 day, Stop date: 12/16/12 9:00:00 NIFEdipine 90 mg, 1 tab, PO No Longer [facility] Route: PO, Drug Active 2012 Medical form: ERTAB, Center Daily, Dosing Weight 100, kg, Start date: 11/17/12 9:00:00, Duration: 30 day, Stop date: 12/16/12 9:00:00 Toprol-XL 100 100 mg, 1 tab, PO No Longer [facility] mg oral tablet, Route: PO, Drug Active 2012 Medical extended form: ERTAB, Center release Daily, Start date: 11/17/12 9:00:00, Duration: 30 day, Stop date: 12/16/12 9:00:00 magnesium oxide 400 mg, 1 tab, PO No Longer [facility] Route: PO, Drug Active 2012 Medical form: TAB, Center Daily, Dosing Weight 100, kg, Start date: 11/17/12 9:00:00, Duration: 30 day, Stop date: 12/16/12 9:00:00 insulin detemir 15 unit, 0.15 SUB-Q No Longer [place] [facility] mL, Route: Active 2012 Medical SUB-Q, Drug Center form: INJ, Daily, Dosing Weight 100, kg, Start date: 11/17/12 9:00:00, Duration: 30 day, Stop date: 12/16/12 9:00:00 Zofran 8 mg, 4 mL, IV No Longer [facility] Route: IV, Drug Active 2012 Medical form: INJ, Q4H, Center Dosing Weight 103.21, kg, PRN as needed for nausea/vomiting, Start date: 11/17/12 8:56:00, Duration: 30 day, Stop date: 12/17/12 8:55:00 Reglan 10 mg 10 mg, 1 tab, PO No Longer [facility] oral tablet Route: PO, Drug Active 2012 Medical form: TAB, Center TID-Before Meals, Dosing Weight 100, kg, Start date: 11/17/12 7:30:00, Duration: 30 day, Stop date: 12/16/12 16:30:00 insulin aspart 4 unit, 0.04 mL, SUB-Q No Longer [facility] Route: SUB-Q, Active 2012 Medical Drug form: SOLN, Center TID-Before Meals, Dosing Weight 100, kg, Start date: 11/17/12 7:30:00, Duration: 30 day, Stop date: 12/16/12 16:30:00 Cymbalta 120 mg, 2 cap, PO No Longer [facility] Route: PO, Drug Active 2012 Medical form: DRC, Center Bedtime, Dosing Weight 100, kg, Start date: 11/16/12 21:00:00, Duration: 30 day, Stop date: 12/15/12 21:00:00 lisinopril 20 mg, 1 tab, PO No Longer [facility] Route: PO, Drug Active 2012 Medical form: TAB, Q12H, Center Dosing Weight 100, kg, Start date: 11/16/12 21:00:00, Duration: 30 day, Stop date: 12/16/12 9:00:00 insulin detemir 12 unit, 0.12 SUB-Q No Longer [facility] mL, Route: Active 2012 Medical SUB-Q, Drug Center form: INJ, Bedtime, Dosing Weight 100, kg, Start date: 11/16/12 21:00:00, Duration: 30 day, Stop date: 12/15/12 21:00:00 clonazepam 0.5 mg, 1 tab, PO No Longer [facility] Route: PO, Drug Active 2012 Medical form: TAB, TID, Center Dosing Weight 100, kg, Start date: 11/16/12 20:30:00, Duration: 30 day, Stop date: 12/16/12 17:00:00 Neutra-Phos 1 pkt, Route: PO No Longer [facility] PO, Drug Form: Active 2012 Medical PDR/REC, Dosing Center Weight 100, kg, TID-Before Meals, Start date: 11/16/12 20:30:00, Duration: 30 day, Stop date: 12/16/12 16:30:00 enoxaparin 40 mg, 0.4 mL, SUB-Q No Longer [facility] Route: SUB-Q, Active 2012 Medical Drug form: INJ, Center [id number], Dosing Weight 100, kg, Start date: 11/16/12 [...] unit, 0.1 mL, SUB-Q No Longer [facility] Route: SUB-Q, Active 2012 Medical Drug form: SOLN, Center TID-Before Meals, Dosing Weight 100, kg, PRN Blood Glucose Results, Start date: 11/16/12 18:10:00, Duration: 30 day, Stop date: 12/16/12 18:09:00 Dextrose 50% 12.5 gm, 25 mL, IVP No Longer [facility] Syringe Route: IVP, Drug Active 2012 Medical Form: INJ, Center Dosing Weight 100, kg, PRN, PRN Blood Glucose Results, Start date: 11/16/12 18:10:00, Duration: 30 day, Stop date: 12/16/12 18:09:00 glucagon 1 mg, Route: IM, IM No Longer [facility] Drug form: Active 2012 Medical PDR/INJ, PRN, Center Dosing Weight 100, kg, PRN Blood Glucose Results, Start date: 11/16/12 18:10:00, Duration: 30 day, Stop date: 12/16/12 18:09:00 [place] 5/325 1 tab, Route: PO No Longer [place] oral tablet PO, Drug Form: Active [...] 8 mg, 1 tab, PO, PO Active [place] [facility] mg oral tablet, Q8H, PRN, 2012 Medical disintegrating Dissolve under Center tongue, 10 tab, as needed for nausea/vomiting, Substitution AllowedDissolve under tongue Effient 10 mg 10 mg, 1 tab, PO Active [place] oral tablet PO, Daily, 30 2012 Medical tab, Center Substitution Allowed, TAB tramadol 50 mg 50 mg, 1 tab, PO Active [place] 11/16[facility] [place] oral tablet PO, Q4H, PRN, 60 2012 Medical tab, for pain, Center Substitution Allowed, TAB clonazepam 0.5 0.5 mg, 1 tab, PO Active [place] 11/16[facility] [place] mg oral tablet PO, TID, [...] Duration: 1 doses or times, Dose=2.2ml/kg, Max [id number] -- "To be infused by Radiology Staff ONLY"Dose=2.2ml/ kg, Max [id number] -- "To be infused by Radiology Staff [...] mg, 1 tab, SL No Longer [facility] 0.4 mg Route: SL, Drug Active 2012 Medical sublingual form: TAB, ONCE, Center tablet Dosing Weight 100, kg, Start date: 11/16/12 13:30:00, Stop date: 11/16/12 13:30:00 aspirin 324 mg, 4 tab, CHEW No Longer [facility] Route: CHEW, Active 2012 Medical Drug form: Center CHEWTAB, ONCE, Dosing Weight 100, kg, Priority: STAT, Start date: 11/16/12 13:29:00, Stop date: 11/16/12 13:29:00 Zofran 8 mg, 4 mL, IVP No Longer [facility] Route: IVP, Drug Active 2012 Medical form: INJ, ONCE, Center Dosing Weight 100, kg, Priority: STAT, Start date: 11/16/12 13:17:00, Stop date: 11/16/12 13:17:00 Saline Flush 5 mL, Route: IVP No Longer [facility] 0.9% IVP, Drug Form: Active 2012 Medical INJ, Dosing Center Weight 100, kg, Q8H, PRN Line Flush, Start date: 11/16/12 13:16:00, Duration: 30 day, Stop date: 12/16/12 13:15:00, Administer at least once every 8 hoursAdminister at least once every 8 hours Reglan 10 mg 10 mg, 1 tab, PO Active [facility] oral tablet PO, TID-Before 2012 Medical Meals, PRN, 42 Center tab, nausea, Substitution Allowed, TAB [place] 5/325 1 tab, PO, Q6H, PO Active [facility] oral tablet PRN, 10 tab, 2012 Medical Pain, Center Substitution Allowed, Maintenance, TAB ondansetron 8 8 mg, 1 tab, PO, PO Active [facility] 11/14[facility] [place] mg oral tablet, Q8H, PRN, 60 2012 Medical disintegrating tab, 1, 1, Center Nausea, Substitution Allowed, TABDIS insulin detemir 12 unit, 0.12 SUB-Q Active [facility] 100 units/mL mL, SUB-Q, 2012 Medical subcutaneous Bedtime, 4 mL, Center solution Substitution Allowed, INJ insulin detemir 15 unit, 0.15 SUB-Q Active [facility] [place] 100 units/mL mL, SUB-Q, 2012 Medical subcutaneous Daily, 5 mL, Center solution Substitution Allowed, INJ Zofran 4 mg, 1 tab, PO No Longer [facility] [place] Route: PO, Drug Active 2012 Medical form: TAB, Q8H, Center Dosing Weight 100, kg, Start date: 11/14/12 16:00:00, Duration: 30 day, Stop date: 12/14/12 8:00:00 Reglan 10 mg 10 mg, 1 tab, PO No Longer [facility] oral tablet Route: PO, Drug Active 2012 Medical form: TAB, Center TID-Before Meals, Dosing Weight 100, kg, Start date: 11/14/12 11:30:00, Duration: 30 day, Stop date: 12/14/12 7:30:00 calcium 2,000 mg, 20 mL, IVPB No Longer [facility] gluconate + Route: IVPB, Active 2012 Medical Sodium Chloride Drug form: INJ, Center 0.9% IV 100 mL Q2H, Dosing Weight 100, kg, Total [id number] mg, Start date: 11/14/12 8:00:00, Duration: 2 doses or times, Stop date: 11/14/12 10:00:00 magnesium 2 gm, 50 mL, IVPB No Longer [facility] sulfate Route: IVPB, Active 2012 Medical [...] 20 mEq, 100 mL, IVPB No Longer [facility] chloride Route: IVPB, Active 2012 Medical Drug form: INJ, Center ONCE, Dosing Weight 100, kg, Total dose=20mEq, Start date: 11/13/12 7:58:00, Duration: 1 doses or times, Stop date: 11/13/12 7:58:00, For K=3.5 - 3.9 mEq/LFor K=3.5 - 3.9 mEq/L calcium 1,000 mg, 10 mL, IVPB No Longer [facility] gluconate + Route: IVPB, Active 2012 Medical Sodium Chloride ONCE, Dosing Center 0.9% IV 50 mL Weight 100, kg, Start date: 11/13/12 7:56:00, Stop date: 11/13/12 7:56:00 Reglan 10 mg, 2 mL, IVP No Longer [facility] Route: IVP, Drug Active 2012 Medical form: INJ, Center Before Meals & Bedtime, Dosing Weight 100, kg, Start date: 11/12/12 16:30:00, Duration: 30 day, Stop date: 12/12/12 11:30:00 [place] 5/325 1 tab, Route: PO No Longer [facility] [place] oral tablet PO, Drug Form: Active jaida 2012 Medical TAB, Dosing Center Weight 100, kg, Q6H, PRN Pain, Start date: 11/12/12 16:07:00, Duration: 30 day, Stop date: 12/12/12 16:06:00 Reglan 10 mg, Route: IVP No Longer [facility] IVP, Q6H, Dosing Active 2012 Medical Weight 100, kg, Center PRN Nausea & Vomiting, Start date: 11/12/12 12:35:00, Duration: 30 day, Stop date: 12/12/12 12:34:00 insulin detemir 15 unit, Route: SUB-Q No Longer [facility] SUB-Q, ONCE, Active 2012 Medical Dosing Weight Center 100, kg, Priority: NOW, Start date: 11/12/12 10:38:00, Stop date: 11/12/12 10:38:00 heparin 7,500 unit, 1.5 SUB-Q No Longer [place] 11/12[facility] mL, Route: Active 2012 Medical SUB-Q, Drug Center form: INJ, Q8H, Start date: 11/11/12 18:00:00, Duration: 30 day, Stop date: 12/11/12 16:00:00 Levemir FlexPen 15 unit, 0.15 SUB-Q No Longer [place] 11/11[facility] mL, Route: Active 2012 Medical SUB-Q, Drug Center form: INJ, Daily, Dosing Weight 100, kg, Start date: 11/11/12 10:00:00, Stop date: 12/11/12 9:00:00 magnesium 2 gm, 50 mL, IVPB No Longer [facility] sulfate Route: IVPB, Active 2012 Medical Drug form: INJ, Center ONCE, Dosing Weight 100, kg, Total dose=2 gm, Start date: 11/11/12 9:04:00, Duration: 1 doses or times, Stop date: 11/11/12 9:04:00 insulin detemir 20 unit, 0.2 mL, SUB-Q No Longer [place] 11/11[facility] Route: SUB-Q, Active 2012 Medical Drug form: INJ, Center Daily, Dosing Weight 100, kg, Start date: 11/11/12 9:00:00, Stop date: 12/10/12 9:00:00 Toradol 15 15 mg, 1 mL, IV No Longer [facility] 11/11[facility] mg/mL Route: IV, Drug Active 2012 Medical injectable form: INJ, ONCE, Center solution Dosing Weight 100, kg, Start date: 11/11/12 0:56:00, Stop date: 11/11/12 0:56:00 Zofran 4 mg, 2 mL, IV No Longer [facility] 11/11[facility] Route: IV, Drug Active 2012 Medical form: INJ, Q8H, Center Dosing Weight 100, kg, Start date: 11/11/12 0:00:00, Duration: 30 day, Stop date: 12/10/12 16:00:00 normal saline 1,000 mL, Rate: IV No Longer [facility] 0.9% IV 1,000 100 ml/hr, Active 2012 Medical mL Infuse over: 10 Center hr, Route: IV, kg, Total Volume: 1,000, Start date: 11/10/12 20:17:00, Duration: 30 day, Stop date: 12/10/12 20:16:00 Sodium Chloride 1,000 mL, Rate: IV No Longer [facility] [place] 0.9% (Bolus) IV 1,000 ml/hr, Active 2012 Medical 1,000 mL Infuse over: 1 Center hr, Route: IV, kg, Total Volume: 1,000, Priority: STAT, Start date: 11/10/12 20:17:00, Duration: 1 doses or times, Stop date: 11/10/12 21:16:00, Bolus DoseBolus Dose insulin detemir 10 unit, 0.1 mL, SUB-Q No Longer [facility] Route: SUB-Q, Active 2012 Medical Drug form: INJ, Center ONCE, Dosing Weight 100, kg, Priority: NOW, Start date: 11/10/12 11:40:00, Stop date: 11/10/12 11:40:00 Zofran ODT 4 mg, 1 tab, PO No Longer [facility] [place] Route: PO, Drug Active 2012 Medical form: TABDIS, Center Q8H, Dosing Weight 100, kg, PRN Nausea, Start date: 11/10/12 11:04:00, Duration: 30 day, Stop date: 12/10/12 11:03:00 Phenergan 12.5 mg, 0.5 mL, IM No Longer [facility] [place] Route: IM, Drug Active 2012 Medical form: INJ, PRN, Center Dosing Weight 100, kg, PRN as needed for nausea/vomiting, Start date: 11/10/12 10:00:00, Duration: 30 day, Stop date: 12/10/12 10:59:00 insulin detemir 16 unit, 0.16 SUB-Q No Longer [place] mL, Route: Active 2012 Medical SUB-Q, Drug Center form: INJ, ONCE, Dosing Weight 100, kg, Start date: 11/10/12 0:20:00, Stop date: 11/10/12 0:20:00 NovoLog 6 unit, 0.06 mL, SUB-Q No Longer [facility] Route: SUB-Q, Active 2012 Medical Drug form: SOLN, Center TID-Before Meals, Dosing Weight 100, kg, Start date: 11/09/12 16:30:00, Duration: 30 day, Stop date: 12/09/12 11:30:00 insulin aspart 7 unit, 0.07 mL, SUB-Q No Longer [facility] Route: SUB-Q, Active 2012 Medical Drug form: SOLN, Center ONCE, Dosing Weight 100, kg, Start date: 11/09/12 13:24:00, Stop date: 11/09/12 13:24:00 insulin detemir 20 unit, 0.2 mL, SUB-Q No Longer Juanjo [facility] Route: SUB-Q, Active 2012 Medical Drug form: INJ, Center Daily, Dosing Weight 100, kg, Start date: 11/09/12 9:00:00, Duration: 30 day, Stop date: 12/08/12 9:00:00 morphine 1 mg, 0.5 mL, IV No Longer Chavez [facility] Sulfate Route: IV, Drug Active 2012 Medical form: INJ, ONCE, Center Dosing Weight 100, kg, Start date: 11/09/12 5:28:00, Stop date: 11/09/12 5:28:00 insulin detemir 12 unit, 0.12 SUB-Q No Longer Olejarski [facility] mL, Route: Active 2012 Medical SUB-Q, Drug Center form: INJ, Bedtime, Dosing Weight 100, kg, Start date: 11/08/12 21:00:00, Stop date: 12/07/12 21:00:00 morphine 2 mg, 1 mL, IVP No Longer Quintanilla [facility] Sulfate Route: IVP, Drug Active 2012 Medical form: INJ, ONCE, Center Dosing Weight 100, kg, Start date: 11/08/12 18:34:00, Stop date: 11/08/12 18:34:00 ampicillin + 1,500 mg, Route: IVPB No Longer Aristides [facility] Sodium Chloride IVPB, Drug form: Active 2012 Medical 0.9% IV 100 mL PDR/INJ, [id number], Center Dosing Weight 100, kg, Start date: 11/08/12 18:00:00, Duration: 30 day, Stop date: 12/08/12 12:00:00 ciprofloxacin 500 mg, 1 tab, PO No Longer [facility] Route: PO, Drug Active 2012 Medical form: TAB, Center [id number], Dosing Weight 100, kg, Start date: 11/08/12 17:00:00, Duration: 30 day, Stop date: 12/08/12 5:00:00 Rocephin 1 gm, Route: IVPB No Longer Janet Fei IVPB, Drug form: Active 2012 Medical PDR/INJ, ONCE, Center Dosing Weight 100, kg, Start date: 11/08/12 13:11:00, Stop date: 11/08/12 13:11:00 insulin aspart 2 unit, 0.02 mL, SUB-Q No Longer Domingojapowerki [facility] Route: SUB-Q, Active 2012 Medical Drug form: SOLN, Center TID-Before Meals, Dosing Weight 100, kg, PRN Blood Glucose Results, Start date: 11/08/12 10:45:00, Duration: 30 day, Stop date: 12/08/12 10:44:00 insulin aspart 2 unit, 0.02 mL, SUB-Q No Longer Olejapowerki [facility] Route: SUB-Q, Active 2012 Medical Drug form: SOLN, Center TID-Before Meals, Dosing Weight 100, kg, PRN Blood Glucose Results, Start date: 11/07/12 18:47:00, Duration: 30 day, Stop date: 12/07/12 18:46:00 magnesium 2 gm, 50 mL, IVPB No Longer [facility] sulfate Route: IVPB, Active 2012 Medical Drug form: INJ, Center Q2H, Dosing Weight 100, kg, Start date: 11/07/12 8:00:00, Duration: 2 doses or times, Stop date: 11/07/12 10:00:00, For Mg=1.5 - 1.7 mg/dLFor Mg=1.5 - 1.7 mg/dL magnesium 2 gm, Route: IVPB No Longer Loida [facility] sulfate IVPB, Drug form: Active 2012 Medical SOLN, ONCE, Center Dosing Weight 100, kg, Start date: 11/07/12 7:42:00, Duration: 1 doses or times, Stop date: 11/07/12 7:42:00, For Mg=1.8 - 2 mg/dLFor Mg=1.8 - 2 mg/dL Protonix 40 mg, Route: IVP No Longer Quintanilla [facility] IVP, Drug form: Active 2012 Medical INJ, Before Center Breakfast, Dosing Weight 100, kg, Start date: 11/07/12 7:30:00, Duration: 30 day, Stop date: 12/06/12 7:30:00 insulin aspart 10 unit, 0.1 mL, SUB-Q No Longer Ahmad [facility] Route: SUB-Q, 2012 Medical Drug form: WHIT, [place] ONCE, Dosing Weight 100, kg, Start date: 11/06/12 13:32:00, Stop date: 11/06/12 13:32:00 adenosine 84 mg, Route: IVP No Longer Ahmad [facility] IVP, ONCE, Active 2012 Medical Dosing Weight Center 100, kg, Priority: Routine, Start date: 11/06/12 10:20:00, Stop date: 11/06/12 10:20:00 Insulin regular 10 unit, 0.1 mL, SUB-Q No Longer [facility] Route: SUB-Q, 2012 [facility] [place] [facility], Dosing Weight 100, kg, Start date: 11/06/12 9:47:00, Stop date: 11/06/12 9:47:00 insulin aspart 10 unit, 0.1 mL, SUB-Q No Longer [facility] Route: SUB-Q, 2012 Medical Drug form: [facility], [place] ONCE, Dosing Weight 100, kg, Start date: 11/06/12 9:43:00, Stop date: 11/06/12 9:43:00 Lactated 1,000 mL, Rate: IV No Longer [facility] Ringers (Bolus) 1,000 ml/hr, Active 2012 [...] Drug Active 2012 Medical extended form: ERTAB, [place] release Daily, Start date: 11/06/12 9:00:00, Duration: [...] unit, 0.04 mL, SUB-Q No Longer [facility] Route: SUB-Q, Active 2012 Medical Drug form: SOLN, Center TID-Before Meals, Dosing Weight 100, kg, Start date: 11/06/12 7:30:00, Duration: 30 day, Stop date: 12/05/12 16:30:00 metoclopramide 10 mg, 2 mL, IVP No Longer Aristides [place] Route: IVP, Drug Active 2012 Medical form: INJ, Q6H, Center Dosing Weight 100, kg, PRN Nausea & Vomiting, Start date: 11/06/12 1:49:00, Duration: 30 day, Stop date: 12/06/12 1:48:00 Benadryl 25 mg, 0.5 mL, IV No Longer [place] [facility] Route: IV, Drug Active 2012 Medical form: INJ, Q4H, Center Dosing Weight 100, kg, PRN as needed for nausea/vomiting, Start date: 11/06/12 1:44:00, Duration: 30 day, Stop date: 12/06/12 1:43:00 Phenergan 12.5 mg, 0.5 mL, IVPB No Longer [place] [facility] Route: IVPB, Active 2012 Medical Drug form: INJ, Center Q6H, Dosing Weight 100, kg, PRN Nausea & Vomiting, Start date: 11/06/12 1:43:00, Stop date: 12/06/12 1:42:00 Benadryl 25 mg, 1 cap, PO No Longer [place] [facility] Route: PO, Drug Active 2012 Medical form: CAP, TID, Center Dosing Weight 100, kg, PRN Nausea, Start date: 11/06/12 0:31:00, Duration: 30 day, Stop date: 12/06/12 0:30:00 labetalol 20 mg, 4 mL, IVP No Longer [facility] Route: IVP, Drug Active 2012 Medical form: INJ, ONCE, Center Dosing Weight 100, kg, Start date: 11/06/12 0:25:00, Stop date: 11/06/12 0:25:00 simvastatin 40 mg, 1 tab, PO No Longer [place] Route: PO, Drug Active 2012 Medical form: TAB, Center Bedtime, Dosing Weight 100, kg, Start date: 11/05/12 23:00:00, Duration: 30 day, Stop date: 12/05/12 21:00:00 lisinopril 20 mg, 1 tab, PO No Longer [facility] Route: PO, Drug Active 2012 Medical form: TAB, Q12H, Center Dosing Weight 100, kg, Start date: 11/05/12 23:00:00, Duration: 30 day, Stop date: 12/05/12 21:00:00 insulin detemir 20 unit, 0.2 mL, SUB-Q No Longer Olejarski [facility] Route: SUB-Q, Active 2012 Medical Drug form: INJ, Center Q12H, Dosing Weight 100, kg, Start date: 11/05/12 23:00:00, Stop date: 12/05/12 21:00:00 magnesium oxide 400 mg, 1 tab, PO Active [place] 400 mg oral PO, Daily, 2012 Medical tablet tab, Center Substitution Allowed, TAB metoprolol 100 100 mg, 1 tab, PO Active [facility] mg oral tablet, PO, Daily, 30 2012 Medical extended tab, Center release Substitution Allowed NIFEdipine 90 90 mg, 1 tab, PO Active [facility] mg oral tablet, PO, Daily, 30 2012 Medical extended tab, Center release Substitution Allowed, ERTAB prasugrel 10 mg 10 mg, 1 tab, PO Active [facility] oral tablet PO, Daily, 2012 Medical tab, Center Substitution Allowed, TAB Cymbalta 60 mg, Daily, Active [facility] Substitution 2012 Medical Allowed Center tramadol 50 mg 50 mg, 1 tab, PO No Longer [facility] [facility] oral tablet Route: PO, Drug Active 2012 Medical form: TAB, Q4H, Center Dosing Weight 100, kg, PRN For Pain, Start date: 11/05/12 22:39:00, Duration: 30 day, Stop date: 12/05/12 22:38:00 promethazine 25 mg, 1 tab, PO No Longer [place] [facility] Route: PO, Drug Active 2012 Medical [...] 5 ml, Route: IVP No Longer [place] 0.9% IVP, Drug Form: Active 2012 Medical INJ, Dosing Center Weight 104.545, kg, PRN, PRN Line Flush, Start date: 11/05/12 22:14:00, Duration: 30 day, Stop date: 12/05/12 23:13:00 Sodium Chloride 500 mL, Rate: IV No Longer [place] 0.9% (Bolus) IV 2,000 ml/hr, Active 2012 Medical 500 mL Infuse over: 15 Center minutes, Route: IV, kg, Total Volume: 500, Priority: STAT, Start date: 11/05/12 22:14:00, Duration: 1 doses or times, Stop date: 11/05/12 22:28:00 nitroglycerin 0.4 mg, 1 tab, SL No Longer [place] [facility] SL Tab Route: SL, Drug Active 2012 Medical form: TAB, Center Q5Min, Dosing Weight 104.545, kg, PRN Chest Pain, Start date: 11/05/12 22:14:00, Duration: 3 doses or times, Stop date: Limited # of times Phenergan 12.5 mg, Route: IVPB No Longer Dilan [place] IVPB, ONCE, Active 2012 Medical Dosing Weight Center 104.545, kg, Priority: STAT, Start date: 11/05/12 22:05:00, Stop date: 11/05/12 22:05:00 Phenergan 12.5 mg, 0.5 mL, IVPB No Longer Dilan [facility] Route: IVPB, Active 2012 Medical Drug form: INJ, Center ONCE, Dosing Weight 104.545, kg, Priority: STAT, Start date: 11/05/12 21:08:00, Stop date: 11/05/12 21:08:00 carvedilol 12.5 mg, 1 tab, PO No Longer Dilan [facility] Route: PO, Drug Active 2012 Medical form: TAB, ONCE, Center Dosing Weight 104.545, kg, Start date: 11/05/12 19:20:00, Stop date: 11/05/12 19:20:00 Effient 10 mg, 1 tab, PO No Longer Dilan [facility] Route: PO, Drug Active 2012 Medical form: TAB, ONCE, Center Dosing Weight 104.545, kg, Start date: 11/05/12 19:16:00, Stop date: 11/05/12 19:16:00 ondansetron 4 mg, 2 mL, IVP No Longer Dilan [facility] Route: IVP, Drug Active 2012 Medical form: INJ, ONCE, Center Dosing Weight 104.545, kg, Priority: STAT, Start date: 11/05/12 19:14:00, Stop date: 11/05/12 19:14:00 aspirin 324 mg, 4 tab, PO No Longer Dilan [facility] Route: PO, Drug Active 2012 Medical form: CHE[place]AB, Center ONCE, Dosing Weight 104.545, kg, Priority: STAT, Start date: 11/05/12 19:14:00, Stop date: 11/05/12 19:14:00 Saline Flush 5 mL, Route: IVP No Longer Dilan [facility] 0.9% IVP, Drug Form: Active 2012 [...] aspart 4 unit, 0.04 mL, SUB-Q Active [facility] 100 units/mL SUB-Q, 2012 Medical subcutaneous TID-Before Center solution Meals, 1 vial, 2, 2, Substitution Allowed, SOLN insulin detemir 16 unit, 0.16 SUB-Q Active [facility] 100 units/mL mL, SUB-Q, Q12H, 2012 Medical subcutaneous 1 vial, 2, 2, Center solution Substitution Allowed, INJ tramadol 50 mg 50 mg, 1 tab, PO Active [place] oral tablet PO, Q4H, PRN, 30 [...] mg 10 mg, 1 tab, PO Active [place] oral tablet PO, Daily, 30 2012 Medical tab, 1, 1, Center Substitution Allowed, TAB ondansetron 8 8 mg, 1 tab, PO, PO Active [place] 10/31/ [place] mg oral tablet, Q8H, PRN, 60 2012 Medical disintegrating tab, 1, 1, Center Nausea, Substitution Allowed, TABDIS NIFEdipine 90 90 mg, 1 tab, PO Active [place] 10/31/ [place] mg oral tablet, PO, Daily, 30 2012 Medical extended tab, 1, 1, Center release Substitution Allowed, ERTAB Toprol-XL 100 100 mg, 1 tab, PO Active [place] 10/31/ [place] mg oral tablet, PO, Daily, 30 2012 Medical extended tab, 1, 1, Center release Substitution Allowed, ERTAB magnesium oxide 400 mg, 1 tab, PO Active [place] 400 mg oral PO, Daily, 30 2012 Medical tablet tab, 1, 1, Center Substitution Allowed, TAB lisinopril 20 20 mg, 1 tab, PO Active [place] mg oral tablet PO, Q12H, 60 2012 Medical tab, 1, 1, Center Substitution Allowed, TAB aspirin 81 mg 81 mg, 1 tab, PO Active [place] [facility] tablet, enteric PO, Daily, 30 2012 Medical coated tab, 1, 1, Center Substitution Allowed, ECTAB insulin aspart 6 unit, 0.06 mL, SUB-Q No Longer [place] Route: SUB-Q, Active 2012 Medical Drug form: SOLN, [place] TID-Before Meals, Dosing Weight 78.2, kg, PRN Blood Glucose Results, Start date: 10/31/12 8:40:00, Duration: 30 day, Stop date: 11/30/12 8:39:00 Phenergan 25 mg, 1 tab, PO No Longer [place] Route: PO, Drug Active 2012 Medical [...] 50 mg, 1 tab, PO No Longer [place] [facility] oral tablet Route: PO, Drug Active 2012 Medical form: TAB, Q4H, Center Dosing Weight 78.2, kg, PRN as needed for pain, Start date: 10/29/12 9:45:00, Duration: 30 day, Stop date: 11/28/12 9:44:00 Toradol 15 15 mg, 0.5 mL, IV No Longer [place] [facility] mg/mL Route: IV, Drug Active 2012 Medical injectable form: INJ, ONCE, Center solution Dosing Weight 78.2, kg, Start date: 10/29/12 6:54:00, Stop date: 10/29/12 6:54:00 Toradol 15 15 mg, 0.5 mL, IV No Longer [place] [facility] mg/mL Route: IV, Drug Active 2012 [...] SUB-Q, Active 2012 Medical Drug form: SOLN, [place] TID-Before Meals, Start date: 10/28/12 7:30:00, Stop [...] labetalol 20 mg, Route: IVP No Longer [place] Fe[facility] IVP, Drug form: Active 2012 Medical INJ, ONCE, Center Dosing Weight 78.2, kg, Start date: 10/27/12 19:28:00, Stop date: 10/27/12 19:28:00 labetalol 20 mg, 4 mL, IVP No Longer [facility] Route: IVP, Drug Active 2012 Medical form: INJ, ONCE, Center Dosing Weight 78.2, kg, Start date: 10/27/12 17:28:00, Stop date: 10/27/12 17:28:00 Benadryl 25 mg, 1 cap, PO No Longer [facility] [facility] Route: PO, Drug Active 2012 Medical form: CAP, ONCE, Center Dosing Weight 78.2, kg, Start date: 10/27/12 17:28:00, Stop date: 10/27/12 17:28:00 Reglan 10 mg 10 mg, Route: PO No Longer [facility] oral tablet PO, Drug form: Active 2012 Medical TAB, Before Center Meals & Bedtime, Dosing Weight 78.2, kg, Start date: 10/27/12 16:30:00, Duration: 30 day, Stop date: 11/26/12 11:30:00 Reglan 5 mg, 1 mL, IV No Longer [place] [facility] Route: IV, Drug Active 2012 Medical form: INJ, Q8H, Center Dosing Weight 78.2, kg, Start date: 10/27/12 16:00:00, Duration: 30 day, Stop date: 11/26/12 8:00:00 Reglan 5 mg, 1 mL, IV No Longer [place] [facility] Route: IV, Drug Active 2012 Medical form: INJ, Q8H, Center Dosing Weight 78.2, kg, PRN Nausea, Start date: 10/27/12 13:08:00, Duration: 30 day, Stop date: 11/26/12 13:07:00 lisinopril 20 mg, 1 tab, PO No Longer [place] [facility] Route: PO, Drug Active 2012 Medical form: TAB, Q12H, Center Dosing Weight 78.2, kg, Start date: 10/27/12 10:00:00, Duration: 30 day, Stop date: 11/26/12 9:00:00 ergocalciferol 50,000 IntlUnit, PO No Longer [place] [facility] 1 cap, Route: Active 2012 Medical PO, Drug form: Center CAP, Daily, Dosing Weight 78.2, kg, Start date: 10/27/12 9:00:00, Duration: 4 day, Stop date: 10/30/12 9:00:00 magnesium oxide 400 mg, 1 tab, PO No Longer G[facility] Route: PO, Drug Active 2012 Medical form: TAB, Center Daily, Dosing Weight 78.2, kg, Start date: 10/27/12 9:00:00, Duration: 30 day, Stop date: 11/25/12 9:00:00 Toprol-XL 100 100 mg, 1 tab, PO No Longer [place] [facility] mg oral tablet, Route: PO, Drug Active 2012 Medical extended form: ERTAB, [place] release Daily, Start date: 10/27/12 9:00:00, Duration: 30 day, Stop date: 11/25/12 9:00:00 insulin aspart 7 unit, Route: SUB-Q No Longer [place] [facility] SUB-Q, Drug Active 2012 Medical form: [facility], [place] TID-Before Meals, Dosing Weight 78.2, kg, Start date: 10/26/12 12:00:00, Duration: 30 day, Stop date: 11/25/12 11:30:00 Insulin regular 10 unit, 0.1 mL, SUB-Q No Longer [facility] Route: SUB-Q, Active 2012 Medical Drug form: SOLN, [place] ONCE, Dosing Weight 78.2, kg, Start date: 10/26/12 10:32:00, Stop date: 10/26/12 10:32:00 NIFEdipine 90 mg, 1 tab, PO No Longer [facility] extended Route: PO, Drug Active 2012 Medical release form: ERTAB, [place] Daily, Dosing Weight 78.2, kg, Start date: 10/26/12 9:00:00, Duration: 30 day, Stop date: 11/24/12 9:00:00 metoprolol 25 mg, 1 tab, PO No Longer [place] [facility] tartrate Route: PO, Drug Active 2012 Medical form: TAB, Q12H, Center Dosing Weight 78.2, kg, Start date: 10/26/12 9:00:00, Duration: 30 day, Stop date: 11/24/12 21:00:00 Reglan 10 mg, 1 tab, PO No Longer [place] [facility] Route: PO, Drug Active 2012 Medical form: TAB, Center Before Meals & Bedtime, Dosing Weight 78.2, kg, Start date: 10/25/12 16:30:00, Duration: 30 day, Stop date: 11/24/12 11:30:00 potassium 20 mEq, 100 mL, IVPB No Longer [facility] chloride Route: IVPB, Active 2012 Medical Drug form: INJ, Center Q2H, Dosing Weight 78.2, kg, Total dose=40 mEq, Start date: 10/25/12 16:00:00, Duration: 2 doses or times, Stop date: 10/25/12 18:00:00 magnesium 2 gm, 50 mL, IVPB No Longer [facility] sulfate Route: IVPB, Active 2012 Medical Drug form: INJ, Center Q2H, Dosing Weight 78.2, kg, Total dose=4 gm, Start date: 10/25/12 16:00:00, Duration: 2 doses or times, Stop date: 10/25/12 18:00:00 potassium 40 mEq, 2 tab, PO No Longer [facility] chloride 20 mEq Route: PO, Drug Active 2012 Medical oral tablet, form: ERTAB, Center extended ONCE, Dosing release Weight 78.2, kg, Start date: 10/25/12 14:50:00, Stop date: 10/25/12 14:50:00 Procardia XL 30 mg, 1 tab, PO No Longer [facility] Route: PO, Drug Active 2012 Medical form: ERTAB, Center ONCE, Dosing Weight 78.2, kg, Start date: 10/25/12 14:49:00, Stop date: 10/25/12 14:49:00 1/2 NS 1,000 mL 1,000 mL, Rate: IV No Longer [place] [facility] 100 ml/hr, Active 2012 Medical Infuse over: 10 Center hr, Route: IV, kg, Total Volume: 1,000, Start date: 10/25/12 13:52:00, Duration: 30 day, Stop date: 11/24/12 13:51:00 atenolol 100 mg, 1 tab, PO No Longer [place] Route: PO, Drug Active 2012 Medical form: TAB, Center Daily, Dosing Weight 78.2, kg, Start date: 10/25/12 9:00:00, Duration: 30 day, Stop date: 11/23/12 9:00:00 Protonix 40 mg, Route: IVP No Longer [facility] IVP, Drug form: Active 2012 Medical INJ, Daily, Center Dosing Weight 78.2, kg, Start date: 10/25/12 9:00:00, Duration: 30 day, Stop date: 11/23/12 9:00:00 NovoLog FlexPen 6 unit, 0.06 mL, SUB-Q No Longer [facility] Route: SUB-Q, Active 2012 Medical Drug form: SOLN, Center TID-Before Meals, Start date: 10/25/12 7:30:00, Duration: 30 day, Stop date: 11/23/12 16:30:00 insulin lispro 6 unit, Route: SUB-Q No Longer Dee Dee [facility] SUB-Q, Active 2012 Medical TID-Before Center Meals, Dosing Weight 78.2, kg, Start date: 10/25/12 7:30:00, Duration: 30 day, Stop date: 11/23/12 16:30:00 Lactated 1,000 mL, Rate: IV No Longer Dee Dee [facility] Ringers IV 250 ml/hr, Active 2012 Medical 1,000 mL Infuse over: 4 Center hr, Route: IV, kg, Total Volume: 1,000, Start date: 10/25/12 5:50:00, Duration: 30 day, Stop date: 11/24/12 5:49:00 Lactated 1,000 mL, Rate: IV No Longer Dee Dee [facility] Ringers (Bolus) 100 ml/hr, Active 2012 Medical IV 1,000 mL Infuse over: 10 Center hr, Route: IV, kg, Total Volume: 1,000, Start date: 10/25/12 5:50:00, Duration: 1 doses or times, Stop date: 10/25/12 15:49:00 insulin aspart 9 unit, 0.09 mL, SUB-Q No Longer [place] [facility] Route: SUB-Q, Active 2012 Medical Drug form: SOLN, Center TID-Before Meals, Dosing Weight 78.2, kg, PRN Blood Glucose Results, Start date: 10/25/12 3:53:00, Duration: 30 day, Stop date: 11/24/12 3:52:00 glucagon 1 mg, Route: IM, IM [facility] Drug form: Active 2012 Medical PDR/INJ, PRN, Center Dosing Weight 78.2, kg, PRN Blood Glucose Results, Start date: 10/25/12 3:53:00, Duration: 30 day, Stop date: 11/24/12 4:52:00 Dextrose 50% 12.5 gm, 25 mL, IVP No Longer Funez [facility] 10/25[facility] Syringe Route: IVP, Drug Active 2012 Medical Form: INJ, Center Dosing Weight 78.2, kg, PRN, PRN Blood Glucose Results, Start date: 10/25/12 3:53:00, Duration: 30 day, Stop date: 11/24/12 4:52:00 Dextrose 50% 25 mL, Route: IVP No Longer Dee Dee [facility] 10/25[facility] Syringe IVP, Dosing Active 2012 Medical Weight 78.2, kg, Center PRN, PRN Blood Glucose Results, Start date: 10/25/12 3:52:00, Duration: 30 day, Stop date: 11/24/12 4:51:00 glucagon 1 mg, Route: IM, IM No Longer Funez [facility] 10/25[facility] PRN, Dosing Active 2012 Medical Weight 78.2, kg, Center PRN Blood Glucose Results, Start date: 10/25/12 3:52:00, Duration: 30 day, Stop date: 11/24/12 4:51:00 Neutra-Phos 2 pkt, Route: PO No Longer Neeru [facility] PO, Drug Form: Active 2012 Medical PDR/REC, Dosing Center Weight 78.2, kg, ONCE, Start date: 10/25/12 1:07:00, Stop date: 10/25/12 1:07:00 insulin detemir 25 unit, 0.25 SUB-Q No Longer [place] [facility] mL, Route: Active 2012 Medical SUB-Q, Drug Center form: INJ, Q12H, Dosing Weight 78.2, kg, Priority: NOW, Start date: 10/25/12 1:06:00, Stop date: 11/23/12 21:00:00 heparin 5000 5,000 unit, 1 SUB-Q No Longer Neeru [place] units/mL mL, Route: Active 2012 Medical injectable SUB-Q, Drug Center solution form: INJ, Q8H, Dosing Weight 78.2, kg, Start date: 10/25/12 0:00:00, Duration: 30 day, Stop date: 11/23/12 16:00:00 Effient 10 mg, Route: PO No Longer Tanikella [facility] PO, Q12H, Dosing Active 2012 Medical Weight 78.2, kg, Center Start date: 10/24/12 21:00:00, Duration: 30 day, Stop date: 11/23/12 9:00:00 Saline Flush 10 mL, Route: IVP No Longer Martínez [place] 0.9% IVP, Drug Form: Active 2012 Medical INJ, Dosing Center Weight 78.2, kg, Q12H, Start date: 10/24/12 21:00:00, Duration: 30 day, Stop date: 11/23/12 9:00:00 Neutra-Phos 2 pkt, Route: PO No Longer Funez K[facility] PO, Drug Form: Active 2012 Medical PDR/REC, Dosing Center Weight 78.2, kg, ONCE, Start date: 10/24/12 20:35:00, Stop date: 10/24/12 20:35:00 potassium 20 mEq, 100 mL, IVPB No Longer Funez Kamel [facility] chloride Route: IVPB, Active 2012 Medical [...] mg, 1 tab, PO No Longer [facility] Route: PO, Drug Active [...] mg, 1 tab, PO No Longer Funez [facility] Fei Route: PO, Drug Active 2012 Medical form: TAB, Center Daily, Dosing Weight 78.2, kg, Priority: NOW, Start date: 10/24/12 10:53:00, Duration: 30 day, Stop date: 11/23/12 9:00:00 potassium 40 mEq, 2 tab, PO No Longer Funez [facility] Fei chloride Route: PO, Drug Active 2012 [...] 24 hr aspirin 200 mg, 1 supp, IA No Longer [place] [facility] Route: IA, Drug Active 2012 Medical form: SUPP, Center [...] Duration: 1 doses or times, Dose=2.2ml/kg, Max [id number] -- "To be infused by Radiology Staff ONLY"Dose=2.2ml/ kg, Max [id number] -- "To be infused by Radiology Staff [...] Duration: 1 doses or times, Dose=2.2ml/kg, Max [id number] -- "To be infused by Radiology Staff ONLY"Dose=2.2ml/ kg, Max [id number] -- "To be infused by Radiology Staff ONLY" Insulin 100 mL, Rate: IV No Longer [place] [facility] (regular) 0.1units/kg/hour Active 2012 Medical Titrate [...] 1,000 mL, Rate: IV No Longer [place] 0.9% IV 1,000 100 ml/hr, Active 2012 Medical mL + M.V.I.-12 Infuse over: Center 10 mL Daily + 10.1 hr, Route: folic acid IV 1 IV, kg, Total mg Daily + Volume: 1,011.2, thiamine IV 1 Start date: 10/23/12 8:41:00, Duration: 3 day, Stop date: 10/26/12 8:40:00 Insulin regular 100 mL, Rate: IVPB No Longer Isaac [place] 100 unit + Start Insulin Active [...] gm, 50 mL, IVP No Longer [place] Syringe Route: IVP, Drug Active 2012 Medical Form: INJ, Center Dosing Weight 113.636, kg, PRN, PRN Blood Glucose Results, Start date: 10/23/12 8:17:00, Duration: 30 day, Stop date: 11/22/12 9:16:00 normal saline 1,000 mL, Rate: IV No Longer Isaac [facility] 0.9% IV 1,000 150 ml/hr, Active [...] mg, 0.5 mL, IV No Longer [facility] Route: IV, Drug Active 2012 Medical form: INJ, Q4H, Center Dosing Weight 113.636, kg, PRN Other -See Comment, Start date: 10/23/12 0:38:00, Duration: 30 day, Stop date: 11/22/12 0:37:00, hypertesnion acetaminophen 650 mg, 1 supp, IA No Longer Kristy Fei Route: IA, Drug Active 2012 Medical form: SUPP, Q6H, [...] mL, IVP No Longer Funez [facility] Fei mg/5 ml INJ Route: IVP, Drug [...] mg, Route: IM, IM No Longer Isaac [place] Drug form: Active 2012 Medical PDR/INJ, PRN, Center Dosing Weight 113.636, kg, PRN Blood Glucose Results, Start date: 10/23/12 0:26:00, Duration: 30 day, Stop date: 11/22/12 1:25:00 Dextrose 50% 25 gm, 50 mL, IVP No Longer [place] Syringe Route: IVP, Drug Active 2012 Medical Form: INJ, Center Dosing Weight 113.636, kg, PRN, PRN Blood Glucose Results, Start date: 10/23/12 0:26:00, Duration: 30 day, Stop date: 11/22/12 1:25:00 Zofran ODT 8 mg, 1 tab, PO No Longer Steward [place] Route: PO, Drug Active 2012 Medical form: TABDIS, Center Q8H, Dosing Weight 113.636, kg, PRN Nausea, Start date: 10/23/12 0:02:00, Stop date: 11/22/12 0:01:00 heparin 5,000 unit, SUB-Q No Longer Brian [place] Route: SUB-Q, Active 2012 Medical Q8H, Dosing Center Weight 113.636, kg, Start date: 10/23/12 0:00:00, Duration: 30 day, Stop date: 11/21/12 16:00:00 carvedilol 25 Daily, No Longer [place] mg oral tablet Substitution Active 2012 Medical Allowed [place] Diovan HCT 160 1 tab, PO, PO No Longer [place] mg-12.5 mg oral Daily, 30 tab, Active 2012 Medical tablet Substitution Center Allowed, Maintenance, TAB D5W 1/2NS + KCL 1,000 mL, Rate: IV No Longer Isaac [place] 20mEq/L 1000ml 150 ml/hr, Active 2012 Medical [...] mg, 10 mL, [place] No Longer [facility] Fei Route: [place], Drug Active 2012 Medical form: SUSP, Center Q12H, Dosing Weight 118.2, kg, Start date: 10/07/12 14:30:00, Duration: 7 day, Stop date: 10/14/12 9:00:00 [place] 325 mg-10 15 mL, Route: PO No Longer Sushila Fe[place] mg / 15 mL oral PO, Drug Form: Active 2012 Medical solution SOLN, Dosing Center Weight 118.2, kg, Q4H, PRN For Pain, Start date: 10/07/12 14:22:00, Duration: 30 day, Stop date: 11/06/12 14:21:00 Diovan 160 mg, 1 tab, PO No Longer Sushila [facility] Route: PO, Drug Active 2012 Medical form: TAB, Center Daily, Dosing Weight 118.2, kg, Start date: 10/07/12 14:00:00, Duration: 30 day, Stop date: 11/06/12 9:00:00 Coreg 25 mg, 1 tab, PO No Longer Sushila [facility] Route: PO, Drug Active 2012 Medical form: TAB, Q12H, Center Dosing Weight 118.2, kg, Start date: 10/07/12 14:00:00, Duration: 30 day, Stop date: 11/06/12 9:00:00 potassium 20 mEq, 100 mL, IVPB No Longer Bag[facility] chloride Route: IVPB, Active 2012 Medical Drug form: INJ, Center ONCE, Dosing Weight 118.2, kg, Total dose=20 mEq, Start date: 10/07/12 7:53:00, Duration: 1 doses or times, Stop date: 10/07/12 7:53:00, For K=3.5 - 3.9 mEq/LFor K=3.5 - 3.9 mEq/L Blistex 1 appl, Route: TOP No Longer [facility] TOP, PRN, Drug Active 2012 Medical form: STIC PRN Center Other -See Comment, Start date: 10/06/12 22:48:00, Duration: 30 day, Stop date: 11/05/12 22:47:00 Blistex Lip Route: TOP, TOP No Longer [facility] [place] Dosing Weight Active 2012 Medical 118.2, kg, PRN, Center PRN, Start date: 10/06/12 22:46:00, Duration: 30 day, Stop date: 11/05/12 22:45:00, prn Dilaudid 0.2 mg, 0.1 mL, IV No Longer Sushila [facility] Route: IV, Drug Active 2012 Medical [...] mg, 1 tab, PO No Longer Sushila [facility] Route: PO, Drug Active 2012 Medical form: TAB, Q12H, Center Dosing Weight 118.2, kg, Start date: 10/04/12 21:00:00, Duration: 30 day, Stop date: 11/03/12 9:00:00 [place] 325 mg-10 30 mL, Route: PO No Longer [facility] Fei mg / 15 mL oral PO, Drug Form: Active 2012 Medical solution SOLN, Dosing Center Weight 118.2, kg, Q4H, PRN Pain Score 6-10, Start date: 10/04/12 17:20:00, Duration: 30 day, Stop date: 11/03/12 17:19:00 Diovan 160 mg, 1 tab, PO No Longer Sushila [place] Route: PO, Drug Active 2012 Medical form: TAB, Center Daily, Dosing Weight 118.2, kg, Start date: 10/04/12 14:00:00, Duration: 30 day, Stop date: 11/03/12 9:00:00 Trandate 10 mg, 2 mL, IVP No Longer Low [facility] Route: IVP, Drug Active 2012 Medical form: INJ, Q4H, Center PRN Elevated BP, Start date: 10/04/12 9:05:00, Duration: 30 day, Stop date: 11/03/12 9:04:00 hydrALAZINE 20 mg, 1 mL, IVP No Longer Low [facility] Route: IVP, Drug Active 2012 Medical [...] unit, 0.2 mL, SUB-Q No Longer Low [facility] Route: SUB-Q, Active 2012 Medical Drug form: INJ, Center Q12H, Dosing Weight 118.2, kg, Priority: NOW, Start date: 10/04/12 7:02:00, Duration: 30 day, Stop date: 11/02/12 21:00:00 hydrALAZINE 10 mg, 0.5 mL, IVP No Longer Low [facility] Route: IVP, Drug Active 2012 Medical form: INJ, ONCE, Center Dosing Weight 118.2, kg, Start date: 10/04/12 6:53:00, Stop date: 10/04/12 6:53:00 labetalol 10 mg, 2 mL, IVP No Longer Low [facility] Route: IVP, Drug Active 2012 Medical form: INJ, Center Q15Min, Dosing Weight 118.2, kg, PRN Hypertension, Start date: 10/04/12 5:11:00, Duration: 3 doses or times, Stop date: Limited # of times Insulin regular 12 unit, 0.12 SUB-Q No Longer [facility] mL, Route: Active 2012 Medical SUB-Q, Drug Center form: SOLN, Sliding Scale, Dosing Weight 118.2, kg, PRN Blood Glucose Results, Start date: 10/04/12 0:40:00, Duration: 30 day, Stop date: 11/03/12 0:39:00 Dextrose 50% 25 gm, 50 mL, IVP No Longer [facility] Syringe Route: IVP, Drug Active 2012 Medical Form: INJ, Center Dosing Weight 118.2, kg, PRN, PRN Blood Glucose Results, Start date: 10/04/12 0:40:00, Duration: 30 day, Stop date: 11/03/12 0:39:00 glucagon 1 mg, Route: IM, IM No Longer [facility] Drug form: Active 2012 Medical PDR/INJ, PRN, Center Dosing Weight 118.2, kg, PRN Blood Glucose Results, Start date: 10/04/12 0:40:00, Duration: 30 day, Stop date: 11/03/12 0:39:00 Ofirmev 1,000 mg, 100 IV No Longer [facility] mL, Route: IV, Active 2012 Medical Drug form: INJ, Center Q6H, Start date: 10/03/12 18:00:00, Duration: 4 doses or times, Stop date: 10/04/12 12:00:00 Mefoxin 2 gm, Route: IVPB No Longer [facility] IVPB, Drug form: Active 2012 Medical INJ, ABXQ8H, Center Start date: 10/03/12 16:00:00, Duration: 2 doses or times, Stop date: 10/04/12 0:00:00 Lopressor 5 mg, 5 mL, IV No Longer Low [facility] Route: IV, Drug Active 2012 Medical form: INJ, Q6H, Center Start date: 10/03/12 16:00:00, Duration: 30 day, Stop date: 11/02/12 10:00:00 Humulin R 100 10 unit, 0.1 mL, SUB-Q No Longer [facility] units/mL Route: SUB-Q, Active 2012 Medical injectable Drug form: SOL, [place] solution TID-Before Meals, PRN Blood Glucose Results, Start date: 10/03/12 14:30:00, Duration: 30 day, Stop date: 11/02/12 14:29:00 Dextrose 50% in 50 mL, Route: IV No Longer [facility] Water IV IV, Start date: Active 2012 Medical 10/03/12 Center 14:29:00, Duration: 30 day, Stop date: 11/02/12 14:28:00, PRN Blood Glucose Results Dextrose 50% in 25 mL, Route: IVP No Longer [facility] Water IV IVP, Start date: Active 2013 Medical 10/03/12 Center 14:28:00, Duration: 30 day, Stop date: 11/02/12 14:27:00, PRN Blood Glucose Results Zofran 4 mg, 2 mL, IVP No Longer Low [facility] Route: IVP, Drug Active 2012 Medical form: INJ, Q8H, Center PRN Nausea, Start date: 10/03/12 14:22:00, Duration: 30 day, Stop date: 11/02/12 14:21:00 naloxone 0.2 mg, 0.5 mL, IV No Longer [facility] Route: IV, Drug Active 2012 Medical form: INJ, PRN, Center PRN Narcotic Reversal, Start date: 10/03/12 14:21:00, Duration: 30 day, Stop date: 11/02/12 14:20:00 hydromorphone IV, Start date: IV No Longer Low [facility] 15 mg 10/03/12 Active 2012 Medical 14:19:00, Center Duration: 30, 30 ml, 118.2 Phenergan 12.5 mg, 0.5 mL, IVPB No Longer Bagshi [facility] Route: IVPB, Active 2012 Medical Drug form: INJ, Center Q4H, PRN Nausea, Start date: 10/03/12 14:08:00, Duration: 30 day, Stop date: 11/02/12 14:07:00 Phenergan 12.5 mg, 0.5 mL, IM No Longer [facility] Route: IM, Drug Active 2012 Medical form: INJ, Q4H, Center PRN Nausea, Start date: 10/03/12 14:07:00, Duration: 30 day, Stop date: 11/02/12 14:06:00 Benadryl 25 mg, 0.5 mL, IM No Longer Sushila [facility] Route: IM, Drug Active 2012 Medical form: INJ, Center Bedtime, PRN Insomnia, Start date: 10/03/12 14:04:00, Duration: 30 day, Stop date: 11/02/12 14:03:00 Lactated 1,000 mL, Rate: IV No Longer Low [facility] Ringers 125 ml/hr, Active 2012 Medical Injection IV Infuse over: 8 Center 1,000 mL hr, Route: IV, kg, Total Volume: 1,000, Start date: 10/03/12 14:00:00, Duration: 30 day, Stop date: 11/02/12 13:59:00 ondansetron 4 mg, 2 mL, IVP No Longer Jose [facility] Route: IVP, Drug Active 2012 Medical form: INJ, ONCE, Center Dosing Weight 118.182, kg, PRN Nausea & Vomiting, Start date: 10/03/12 11:00:00 acetaminophen-o 1 tab, Route: PO No Longer Jose [facility] xycodone 325 PO, Drug Form: Active 2012 Medical mg-5 mg oral TAB, Dosing Center tablet Weight 118.182, kg, Q4H, PRN Pain Score 1-3, Start date: 10/03/12 11:00:00, Stop date: 10/04/12 0:00:00 hydromorphone 0.5 mg, 0.25 mL, IVP No Longer Jose [facility] Route: IVP, Drug Active 2012 Medical form: INJ, Center Q5Min, Dosing Weight 118.182, kg, PRN Pain Score 4-6, Start date: 10/03/12 11:00:00, Duration: 5 doses or times, Stop date: 10/04/12 0:00:00 Lactated 1,000 mL, Rate: IV No Longer Jose 10/03[facility] Fei [place] 50 ml/hr, Infuse Active [...] 1 patch, Route: TOP No Longer Sushila 10/03[facility] Fei TOP, Drug form: Active 2012 Medical ERFILM, PRE OP, Center Start date: 10/03/12 6:00:00, Duration: 1 day, Stop date: 10/04/12 5:59:00 Mefoxin 2 gm, Route: IVPB No Longer Sushila [place] IVPB, Drug form: Active 2012 Medical INJ, PRE OP, Center Priority: STAT, Start date: 10/03/12 5:50:00, Duration: 1 day, Stop date: 10/04/12 5:49:00 Mobic 15 mg 10 mg, PO, PO Active [place] oral tablet Daily, 30 tab, 2012 Medical Substitution Center Allowed, TAB Zetia Daily, Active [facility] Substitution 2011 Medical Allowed Center Klor-Con 10 10 mEq, 1 tab, PO Active [facility] oral tablet, PO, Daily, 180 2011 Medical extended tab, Center release Substitution Allowed, ERTAB ferrous 324 mg, 1 tab, PO Active [facility] gluconate 324 PO, Daily, 100 2011 Medical mg oral tablet tab, Center Substitution Allowed, TAB Lasix 40 mg 40 mg, 1 tab, PO Active [place] oral tablet PO, Daily, 30 2011 Medical tab, Center Substitution Allowed, TAB Cymbalta 60 mg 60 mg, 1 cap, PO Active [facility] oral delayed PO, BID, 30 cap, 2011 Medical release capsule Substitution Center Allowed, ECCAP Crestor 20 mg 20 mg, 1 tab, PO Active [facility] oral tablet PO, Daily, 30 2011 Medical tab, Center Substitution Allowed, TAB Flexeril 10 mg 10 mg, 1 tab, PO Active [facility] oral tablet PO, TID, PRN, 30 2011 Medical tab, for spasm, Center Substitution Allowed, TAB Lyrica 150 mg 150 mg, 1 cap, PO Active [facility] oral capsule PO, BID, 90 cap, 2011 Medical Substitution Center Allowed, CAP Klonopin 0.5 mg 0.5 mg, 1 tab, PO Active [place] oral tablet PO, TID, 2011 Medical Substitution Center Allowed, TAB Diovan 160 mg 160 mg, 1 tab, PO Active 06/28[facility] [place] oral tablet PO, Daily, 30 [...] oral tablet PO, BID, 30 tab, 2011 [facility] Substitution Center Allowed NovoLog Substitution Active [place] Allowed 2011 [facility] Levemir FlexPen Substitution Active [facility] Allowed 2011 [facility] Allergies, Adverse Reactions, Alerts No Known Medication Allergies Immunizations Immunization Date Given Site Status Last Updated Comments Source influenza virus 07/14/2013 completed [facility] vaccine, Medical inactivated Center pneumococcal 07/14/2013 completed [facility] 23-valent vaccine [facility] Results Order Name Results Value Reference Date Interpretation Comments Source Range CHEMISTRY U Preg Negative Negative 08/13 Normal [facility] (08/13/2013 13:30:00) [facility] URINALYSIS UA RBC 0-2 /HPF 0 - 2 08/13 [facility] URINALYSIS UA WBC 3-5 /HPF None Seen 08/13 [facility] URINALYSIS UA Sq Epi Few /LPF Few 08/13 [facility] URINALYSIS Micro? Performed 08/13 Normal [facility] (08/13/2013 13:30:00) [facility] URINALYSIS UA Hyal Cast 0-2 0 - 2 08/13 Normal [facility] (08/13/2013 13:30:00) [facility] Center URINALYSIS UA Glucose 250 mg/dL Negative 08/13 [facility] Center URINALYSIS UA Blood Negative Negative 08/13 Normal [facility] (08/13/2013 13:30:00) [facility] Center URINALYSIS UA Ketones >=80 mg/dL Negative 08/13 [facility] Center URINALYSIS UA 0.2 0.1 - 1.0 08/13 Normal [facility] Urobilinogen /2012 [facility] URINALYSIS UA Nitrite Negative Negative 08/13 Normal [facility] (08/13/2013 13:30:00) [facility] URINALYSIS UA Bili Small 1 Negative 08/13 ABN <sup>1</sup>R [facility] *ABN* [facility] (08/13/2013 13:30:00) Comment: Center Interpret positive bilirubin results with caution. Confirmatory testing
n ot possible due to the unavailabilit y of reagent. Correlation with
seru m chemistry results recommended. URINALYSIS UA Leuk Est Negative Negative 08/13 [facility] (08/13/2013 13:30:00) [facility] URINALYSIS UA Protein Negative Negative 08/13 [facility] (08/13/2013 13:30:00) [facility] URINALYSIS UA pH 6.0 5.0 - 8.0 08/13 Normal [facility] URINALYSIS UA Spec Grav 1.020 <=1.030 08/13 Normal [facility] URINALYSIS UA Color Yellow Yellow 08/13 [facility] *NA* [facility] (08/13/2013 13:30:00) [place] URINALYSIS UA Turbidity Clear Clear 08/13 [facility] (08/13/2013 13:30:00) [facility] CHEMISTRY BE Mark 1 -2-2 - 2 08/13 Normal [facility] CHEMISTRY pO2 Mark 29 20 - 49 08/13 Normal [facility] CHEMISTRY O2 Sat Mark 55.9 40.0 - 08/13 [facility] 70.0 [facility] CHEMISTRY Temp Mark 37.0 08/13 [facility] CHEMISTRY HCO3 Mark 26 22 - 26 08/13 Normal [facility] CHEMISTRY pCO2 Mark 41 38 - 52 08/13 Normal [facility] CHEMISTRY pH Mark 7.41 7.28 - 08/13 Normal [facility] 7.42 [facility] CHEMISTRY eGFR 60 08/13 <sup>2</sup>R [facility] Comment: The Center eGFR is calculated using [...] CO2 25 24 - 32 08/13 Normal [facility] CHEMISTRY Chloride Lvl 98 95 - 109 08/13 Normal [facility]2012 [facility] CHEMISTRY BUN 9 7 - 22 08/13 [facility] CHEMISTRY Calcium Lvl 9.1 8.5 - 10.5 08/13 Normal [facility] CHEMISTRY Glucose Lvl 301 70 - 99 08/13 [place] <sup>3</sup>I nterpretive Medical Data: Adult Center reference range values reflect the clinical guidelines
of the [place] [employer]. CHEMISTRY Potassium Lvl 3.8 3.5 - 5.1 08/13 Normal [facility] CHEMISTRY Sodium Lvl 134 135 - 145 08/13 LOW [facility]2012 [facility] CHEMISTRY Creatinine 1.1 0.5 - 1.4 08/13 Normal [facility] CHEMISTRY Bili Total 0.6 0.2 - 1.3 08/13 Normal [facility] CHEMISTRY ASPARTATE 17 0 - 37 08/13 Normal [facility] TRANSAMINASE [facility] CHEMISTRY ALANINE 22 0 - 65 08/13 Normal [facility] AMINO [facility] CHEMISTRY Albumin Lvl 3.5 3.5 - 5.0 08/13 Normal [facility]2012 [facility] CHEMISTRY Alk Phos 130 39 - 136 08/13 Normal [facility] CHEMISTRY Total Protein 7.8 6.4 - 8.4 08/13 Normal [facility] CHEMISTRY B/C Ratio 8 6 - 25 08/13 Normal [facility] CHEMISTRY AGAP 14.8 10.0 - 12 Normal [facility] [place] 20.0 /2012 [facility] CHEMISTRY Globulin 4.3 2.0 - 4.0 12 HI [facility] CHEMISTRY A/G Ratio 0.8 0.7 - 1.6 12 Normal [facility] HEMATOLOGY Monocytes # 0.8 0.0 - 0.8 12 Normal [facility] HEMATOLOGY Eosinophils # 0.0 0.0 - 0.5 12 Normal [facility] HEMATOLOGY Basophils # 0.0 0.0 - 0.2 12 Normal [facility] HEMATOLOGY Basophils 0.1 0.0 - 1.0 12 Normal [facility] HEMATOLOGY Lymphocytes # 1.4 1.0 - 5.5 12 Normal [facility] HEMATOLOGY Segs-Bands # 10.5 1.5 - 8.1 08/13 [facility] HEMATOLOGY Monocytes 6.3 2.0 - 12.0 12 Normal [facility] HEMATOLOGY Eosinophils 0.2 0.0 - 4.0 08/13 Normal [facility] HEMATOLOGY Lymphocytes 11.3 20.0 - 12 LOW [place] 40.0 /2012 Medical [place] HEMATOLOGY Segs 82.1 45.0 - 12/08 [facility] [place] 75.0 /2012 Medical [place] HEMATOLOGY WBC X 10x3 12.7 3.7 - 10.4 12 [facility] HEMATOLOGY Hct 37.0 36.0 - 12/08 Normal [place] 48.0 /2012 [facility] HEMATOLOGY RBC X 10x6 4.36 4.20 - 12/08 Normal [place] 5.40 /2012 [facility] HEMATOLOGY Hgb 12.6 12.0 - 12/08 Normal [place] 16.0 /2012 [facility] HEMATOLOGY MCV 84.8 81.0 - 12/08 Normal [place] 99.0 /2012 Medical [place] HEMATOLOGY MCH 28.8 27.0 - 12/08 Normal [place] 31.0 /2012 [facility] HEMATOLOGY MCHC 34.0 32.0 - 12/08 Normal [place] 36.0 /2012 [facility] HEMATOLOGY Platelet 238 133 - 450 12 Normal [facility] HEMATOLOGY MPV 9.5 7.4 - 10.4 12 Normal [facility] HEMATOLOGY RDW 13.1 11.5 - 12/08 Normal [facility] [place] 14.5 /2013 Medical Center BEDSIDE Gluc POC Notify 07/26 [facility] GLUCOSE Comment 1 RN/MD /2012 Medical TESTING Center BEDSIDE Glucose POC 274 70 - 99 07/26 [place] <sup>1</sup>I [facility] GLUCOSE nterpretive Medical TESTING Data: Center Upper Reportable Limit: 200 mg/dL. BEDSIDE Glucose POC 146 70 - 99 07/15 [place] <sup>2</sup>I [facility] GLUCOSE nterpretive Medical TESTING Data: [place] Upper Reportable Limit: 200 mg/dL. BEDSIDE Gluc POC Notify 07/15 [facility] GLUCOSE Comment 1 RN/MD /2012 Medical TESTING Center BEDSIDE Glucose POC 140 70 - 99 07/14 [place] <sup>3</sup>I [facility] nterpretive Medical TESTING Data: [place] Upper Reportable Limit: 200 mg/dL. BEDSIDE Gluc POC Notify 07/14 [facility] GLUCOSE Comment 1 RN/MD /2012 Medical TESTING Center BEDSIDE Gluc POC Notify 07/14 [facility] GLUCOSE Comment 1 RN/MD /2012 Medical TESTING Center BEDSIDE Glucose POC 44 70 - 99 07/14 LOW <sup>4</sup>I [facility] nterpretive Medical TESTING Data: [place] Upper Reportable Limit: 200 mg/dL. IMMUNOLOGY [place]-HIV Negative Negative 07/14 [facility] / Ab *NA* Medical (07/14/2013 00:27:00) Center IMMUNOLOGY [place]-Hep C Negative Negative 07/14 [facility] Ab *NA* Medical (07/14/2013 00:27:00) Center [...] Lvl 135 135 - 145 07/13 Normal [facility] CHEMISTRY Chloride Lvl 95 95 - 109 07/13 Normal [facility] CHEMISTRY AGAP 16.5 10.0 - 07/13 Normal [facility] 20.0 [facility] CHEMISTRY Glucose Lvl 322 70 - 99 07/13 [place] <sup>8</sup>I nterpretive Medical Data: Adult Center reference range values reflect the clinical guidelines
of the [place] [employer]. CHEMISTRY Creatinine 0.6 0.5 - 1.4 07/13 Normal [place] [facility] CHEMISTRY BUN 6 7 - 22 07/13 LOW [facility] CHEMISTRY Calcium Lvl 8.6 8.5 - 10.5 07/13 Normal [facility] CHEMISTRY CO2 27 24 - 32 07/13 Normal [facility] CHEMISTRY Potassium Lvl 3.5 3.5 - 5.1 07/13 Normal [facility] INFECTIOUS C difficile Negative 1 Negative 07/13 Normal <sup>1</sup>I [facility] DISEASES DNA (07/13/2013 00:00:59) nterpretive [facility] Clostridium difficile assay utilizes loop-mediated [...] 1.9 0.5 - 2.2 07/12 Normal [place] [facility] CHEMISTRY eGFR 88 07/12 <sup>6</sup>R esult Medical Comment: The [place] eGFR is calculated using the CKD-EPI formula. [...] CHEMISTRY Troponin-I <0.02 0.00 - 07/12 Normal [facility] 0.40 /2012 [facility] HEMATOLOGY Basophils # 0.0 0.0 - 0.2 07/12 Normal [facility] HEMATOLOGY Eosinophils # 0.3 0.0 - 0.5 07/12 Normal [facility] HEMATOLOGY Monocytes # 1.0 0.0 - 0.8 07/12 [place] [facility] HEMATOLOGY Lymphocytes # 3.0 1.0 - 5.5 07/12 Normal [facility] HEMATOLOGY Segs-Bands # 6.4 1.5 - 8.1 07/12 Normal [facility] HEMATOLOGY Basophils 0.4 0.0 - 1.0 07/12 Normal [facility] HEMATOLOGY Eosinophils 2.8 0.0 - 4.0 07/12 Normal [facility] HEMATOLOGY Plt Morph Normal 07/12 Normal [facility] (07/12/2013 16:29:10) [facility] HEMATOLOGY RBC Morph Normal 07/12 Normal [facility] (07/12/2013 16:29:10) [facility] HEMATOLOGY Monocytes 9.4 2.0 - 12.0 07/12 Normal [facility] HEMATOLOGY Lymphocytes 27.9 20.0 - 07/12 Normal [place] 40.0 [facility] HEMATOLOGY Segs 59.5 45.0 - 07/12 Normal [place] 75.0 [facility] HEMATOLOGY MCV 85.3 81.0 - 07/12 Normal [place] 99.0 [facility] HEMATOLOGY Hct 41.2 36.0 - 07/12 Normal [facility] 48.0 /2012 Medical Center HEMATOLOGY Hgb 13.6 12.0 - 11 Normal [facility] 16.0 /2012 Medical Center HEMATOLOGY RBC X 10x6 4.84 4.20 - 11 Normal [facility] 5.40 /2012 Medical Center HEMATOLOGY MPV 9.4 7.4 - 10.4 11 Normal Medical [place] HEMATOLOGY Platelet 225 133 - 450 11 Normal Medical Center HEMATOLOGY MCH 28.1 27.0 - 11 Normal [facility] 31.0 /2012 Medical Center HEMATOLOGY MCHC 33.0 32.0 - 11 Normal [facility] 36.0 /2012 Medical Center HEMATOLOGY RDW 12.7 11.5 - 11 Normal [facility] 14.5 /2012 Medical Center HEMATOLOGY WBC X 10x3 10.7 3.7 - 10.4 07/12 HI Medical [place] CHEMISTRY AGAP 12.4 10.0 - 07/12 Normal [facility] 20.0 Medical Center CHEMISTRY Calcium Lvl 8.8 8.5 - 10.5 07/12 Normal Medical Center CHEMISTRY Chloride Lvl 102 95 - 109 07/12 Normal Medical [facility] CHEMISTRY Potassium Lvl 3.4 3.5 - 5.1 07/12 LOW [facility] Center CHEMISTRY CO2 30 24 - 32 07/12 Normal Medical Center CHEMISTRY Sodium Lvl 141 135 - 145 07/12 Normal [facility] Center CHEMISTRY Creatinine 0.8 0.5 - 1.4 07/12 Normal [facility] Lvl Medical Center CHEMISTRY BUN 6 7 - 22 07/12 LOW Medical Center CHEMISTRY Glucose Lvl 163 70 - 99 07/12 [place] <sup>9</sup>I nterpretive Medical Data: Adult Center reference range values reflect the clinical guidelines
of the [place] [employer]. IMMUNOLOGY CDC-HIV 1/2 Negative Negative 07/12 [facility] Ab *NA* /2012 Medical (07/12/2013 16:02:06) Center CHEMISTRY Calcium Lvl 8.4 8.5 - 10.5 07/12 LOW Medical Center CHEMISTRY AGAP 10.4 10.0 - 07/12 Normal [facility] 20.0 Medical Center CHEMISTRY eGFR 76 [...] Lvl 140 135 - 145 07/12 Normal [facility] CHEMISTRY Chloride Lvl 103 95 - 109 07/12 Normal [facility] CHEMISTRY Potassium Lvl 3.4 3.5 - 5.1 07/12 LOW [facility]2012 [facility] CHEMISTRY BUN 9 7 - 22 07/12 Normal [facility]2012 [facility] CHEMISTRY Creatinine 0.9 0.5 - 1.4 07/12 Normal [facility] CHEMISTRY Glucose Lvl 296 70 - 99 07/12 [place] <sup>10</sup> Interpretive Medical Data: Adult Center reference range values reflect the clinical guidelines
of the [place] [employer]. CHEMISTRY CO2 30 24 - 32 07/12 Normal [facility] CHEMISTRY Troponin-I <0.02 0.00 - 11 Normal [facility] 0.40 /2012 [facility] CHEMISTRY Lipase Lvl 76 73 - 393 07/12 Normal [facility]2012 [facility] CHEMISTRY B/C Ratio 11 6 - 25 07/12 Normal [facility]2012 [facility] CHEMISTRY ASPARTATE 25 0 - 37 07/12 Normal [facility] CHEMISTRY Bili Total 0.4 0.2 - 1.3 07/12 Normal [facility]2012 [facility] CHEMISTRY Alk Phos 119 39 - 136 07/12 Normal [facility]2012 [facility] CHEMISTRY Albumin Lvl 3.9 3.5 - 5.0 07/12 Normal [facility] CHEMISTRY ALANINE 29 0 - 65 07/12 Normal [facility]INOTRANSFER [facility] CHEMISTRY Total Protein 8.1 6.4 - 8.4 07/12 Normal [facility] CHEMISTRY Globulin 4.2 2.0 - 4.0 07/12 HI [facility] CHEMISTRY A/G Ratio 0.9 0.7 - 1.6 07/12 Normal [facility] HEMATOLOGY Monocytes # 0.6 0.0 - 0.8 07/12 Normal [facility] HEMATOLOGY Segs-Bands # 9.5 1.5 - 8.1 07/12 HI [facility] HEMATOLOGY Eosinophils # 0.2 0.0 - 0.5 07/12 Normal [facility] HEMATOLOGY Lymphocytes # 2.1 1.0 - 5.5 07/12 Normal [facility] HEMATOLOGY Basophils 0.2 0.0 - 1.0 07/12 Normal [facility] HEMATOLOGY Neut Vac Slight None Seen 07/12 ABN [place] *ABN* /2012 [facility] (07/12/2013 03:30:00) [place] HEMATOLOGY Hypochrom Slight None Seen 07/12 Normal [facility] (07/12/2013 03:30:00) [facility] HEMATOLOGY Basophils # 0.0 0.0 - 0.2 07/12 Normal [facility] HEMATOLOGY RBC Morph Normal 07/12 Normal [facility] (07/12/2013 03:30:00) [facility] HEMATOLOGY Eosinophils 1.6 0.0 - 4.0 07/12 Normal [facility] HEMATOLOGY Monocytes 4.6 2.0 - 12.0 07/12 Normal [facility] HEMATOLOGY Segs 76.6 45.0 - 07/12 HI [place] 75.0 [facility] HEMATOLOGY Lymphocytes 17.0 20.0 - 07/12 LOW [place] 40.0 [facility] HEMATOLOGY Plt Morph Normal 07/12 Normal [facility] (07/12/2013 03:30:00) [facility] HEMATOLOGY MCHC 32.4 32.0 - 07/12 Normal [place] 36.0 [facility] HEMATOLOGY MCH 27.4 27.0 - 07/12 Normal [place] 31.0 [facility] HEMATOLOGY RDW 12.7 11.5 - 07/12 Normal [facility] 14.5 /2012 [facility] HEMATOLOGY Platelet 235 133 - 450 07/12 Normal [place] [facility] HEMATOLOGY MPV 9.4 7.4 - 10.4 07/12 Normal [facility] HEMATOLOGY Hgb 12.9 12.0 - 07/12 Normal [facility] 16.0 /2012 [facility] HEMATOLOGY MCV 84.3 81.0 - 07/12 Normal [facility] 99.0 [facility] HEMATOLOGY Hct 39.6 36.0 - 07/12 Normal [facility] 48.0 /2012 [facility] HEMATOLOGY WBC X 10x3 12.4 3.7 - 10.4 07/12 HI [facility] HEMATOLOGY RBC X 10x6 4.70 4.20 - 07/12 Normal [facility] 5.40 /2012 [facility] CHEMISTRY U Preg Negative Negative 07/12 Normal [facility] (07/12/2013 03:00:00) [facility] URINALYSIS UA Leuk Est Negative Negative 07/12 Normal [facility] (07/12/2013 03:00:00) [facility] Center URINALYSIS UA 0.2 0.1 - 1.0 07/12 Normal [facility] Urobilinogen [facility] Center URINALYSIS UA Nitrite Negative Negative 07/12 Normal [facility] (07/12/2013 03:00:00) Medical Center URINALYSIS UA Bili Negative Negative 07/12 [facility] *NA* [facility] (07/12/2013 03:00:00) Center URINALYSIS UA pH 6.0 5.0 - 8.0 07/12 Normal [facility] URINALYSIS UA Protein Negative Negative 07/12 Normal [facility] mg/dL Medical Center URINALYSIS UA Glucose >=1000 Negative 07/12 ABN [facility] mg/dL [facility] Center URINALYSIS UA Ketones 15 mg/dL Negative 07/12 ABN [facility] URINALYSIS UA Spec Grav 1.020 <=1.030 07/12 Normal [facility] URINALYSIS UA Blood Negative Negative 07/12 Normal [facility] (07/12/2013 03:00:00) Medical Center URINALYSIS UA Color Yellow Yellow 07/12 [facility] *NA* Medical (07/12/2013 03:00:00) Center URINALYSIS UA Turbidity Clear Clear 07/12 Normal [facility] (07/12/2013 03:00:00) Medical Center URINALYSIS UA RBC 0-2 /HPF 0 - 2 07/12 Normal [facility] URINALYSIS UA WBC 3-5 /HPF None Seen 07/12 Normal Medical [place] URINALYSIS UA Sq Epi Many /LPF Few 07/12 ABN [facility] URINALYSIS UA Bacteria Few /HPF None Seen 07/12 Normal [facility] URINALYSIS UA [place] Yeast Moderate None Seen 07/12 ABN / Medical Center URINALYSIS Micro? Performed 07/12 Normal [facility] (07/12/2013 03:00:00) Medical Center BEDSIDE Gluc POC 226 70 - 99 04/03 HI <sup>1</sup>I [facility] GLUCOSE [facility] nterpretive Medical TESTING Data: [place] Reportable Limit: 200 mg/dL. BEDSIDE Comment2 Sliding 04/03 NA [facility] GLUCOSE Scale Medical TESTING Center BEDSIDE Comment1 Notify 04/03 NA [facility] GLUCOSE RN/MD Medical TESTING Center BEDSIDE Comment1 Notify 04/03 NA [facility] GLUCOSE RN/MD Medical TESTING Center BEDSIDE Gluc POC 198 70 - 99 04/03 HI <sup>2</sup>I [facility] GLUCOSE [facility] nterpretive Medical TESTING Data: [place] Reportable Limit: 200 mg/dL. BEDSIDE Comment2 Sliding 04/03 NA [facility] GLUCOSE Scale Medical TESTING Center BEDSIDE Comment2 Sliding 04/03 NA [facility] GLUCOSE Scale Medical TESTING Center BEDSIDE Comment1 Notify 04/03 NA [facility] GLUCOSE RN/ /2012 Medical TESTING Center BEDSIDE Gluc POC 182 70 - 99 04/03 [place] <sup>3</sup>I [facility] GLUCOSE [facility] nterpretive Medical TESTING Data: [place] Upper Reportable Limit: 200 mg/dL. CHEMISTRY Troponin-T <0.010 0.000 - 04/03 Normal [facility] 0.100 [facility] Center CHEMISTRY Troponin-I <0.02 0.00 - 04/03 Normal [facility] 0.40 [facility] Center CHEMISTRY Total CK 41 12 - 191 04/03 Normal Medical Center CHEMISTRY Creatinine 0.6 0.5 - 1.4 04/03 Normal [facility] Lvl Medical Center CHEMISTRY Sodium Lvl 137 135 - 145 04/03 Normal [facility] CHEMISTRY CO2 25 24 - 32 04/03 Normal [facility] CHEMISTRY Calcium Lvl 8.2 8.5 - 10.5 04/03 LOW [facility] CHEMISTRY AGAP 17.9 10.0 - 04/03 Normal [facility] 20.0 [facility] CHEMISTRY Potassium Lvl 3.9 3.5 - 5.1 04/03 Normal [facility] CHEMISTRY Chloride Lvl 98 95 - 109 04/03 Normal [facility] CHEMISTRY Glucose Lvl 266 70 - 99 04/03 HI <sup>6</sup>I nterpretive Medical Data: Adult Center reference range values reflect the clinical guidelines
of the [place] [employer]. CHEMISTRY BUN 3 7 - 22 04/03 LOW [facility] CHEMISTRY eGFR 109 04/03 NA <sup>4</sup>R [...] 10.5 12.0 - 04/03 LOW [place] 16.0 [facility] HEMATOLOGY RBC 4.22 4.20 - 04/03 Normal [facility] 5.40 [facility] HEMATOLOGY WBC 10.3 3.7 - 10.4 04/03 Normal [facility] HEMATOLOGY Hct 33.5 36.0 - 04/03 LOW [place] 48.0 [facility] HEMATOLOGY MPV 8.8 7.4 - 10.4 04/03 Normal [facility] HEMATOLOGY Platelet 276 133 - 450 04/03 Normal [facility] HEMATOLOGY RDW 18.7 11.5 - 04/03 HI [place] 14.5 /2012 Medical [place] HEMATOLOGY MCHC 31.2 32.0 - 04/03 LOW [place] 36.0 /2012 Medical [place] HEMATOLOGY MCH 24.8 27.0 - 04/03 LOW [place] 31.0 Medical [place] HEMATOLOGY MCV 79.5 81.0 - 04/03 LOW [place] 99.0 /2012 [facility] HEMATOLOGY Segs 58.6 45.0 - 04/03 Normal [place] 75.0 /2012 [facility] HEMATOLOGY Lymphocytes 29.9 20.0 - 04/03 Normal [place] 40.0 [facility] HEMATOLOGY Basophils 1.3 0.0 - 1.0 04/03 HI [facility] HEMATOLOGY Lymphocytes # 3.1 1.0 - 5.5 04/03 Normal [facility] HEMATOLOGY Segs-Bands # 6.0 1.5 - 8.1 04/03 Normal [facility] HEMATOLOGY Eosinophils 2.8 0.0 - 4.0 04/03 Normal [facility] HEMATOLOGY Eosinophils # 0.3 0.0 - 0.5 04/03 Normal [facility] HEMATOLOGY Monocytes # 0.8 0.0 - 0.8 04/03 Normal [facility] HEMATOLOGY Basophils # 0.1 0.0 - 0.2 04/03 Normal [facility] HEMATOLOGY Monocytes 7.4 2.0 - 12.0 04/03 Normal [facility] CHEMISTRY Troponin-I <0.02 0.00 - 04/03 Normal [place] 0.40 [facility] CHEMISTRY Total CK 51 12 - 191 04/03 Normal [facility] CHEMISTRY Troponin-T <0.010 0.000 - 04/03 Normal [place] 0.100 [facility] CHEMISTRY Bili Direct 0.1 0.0 - 0.3 04/03 Normal [facility] CHEMISTRY Bili Total 0.4 0.2 - 1.3 04/03 Normal [facility] CHEMISTRY Bili Indirect 0.3 0.0 - 1.0 04/03 Normal [facility] CHEMISTRY ALT 22 0 - 65 04/03 Normal [facility] CHEMISTRY AST 31 0 - 37 04/03 Normal [facility] CHEMISTRY Lipase Lvl 54 73 - 393 04/03 LOW [facility] CHEMISTRY Troponin-I <0.02 0.00 - 04/02 [facility] 0.40 [facility] CHEMISTRY Total CK 24 12 - 191 04/02 Normal [facility] CHEMISTRY AGAP 17.5 10.0 - 04/02 Normal [facility] 20.0 [facility] CHEMISTRY eGFR 88 04/02 NA <sup>5</sup>R [...] Creatinine 0.8 0.5 - 1.4 04/02 Normal [facility] Lvl /2012 [facility] CHEMISTRY Potassium Lvl 3.5 3.5 - 5.1 04/02 Normal [facility] CHEMISTRY Chloride Lvl 97 95 - 109 04/02 Normal [facility] CHEMISTRY Glucose Lvl 163 70 - 99 04/02 HI <sup>7</sup>I nterpretive Medical Data: Adult Center reference range values reflect the clinical guidelines
of the [place] [employer]. CHEMISTRY BUN 2 7 - 22 04/02 LOW [facility] CHEMISTRY Sodium Lvl 136 135 - 145 04/02 Normal [facility] CHEMISTRY Calcium Lvl 8.6 8.5 - 10.5 04/02 Normal [facility] CHEMISTRY CO2 25 24 - 32 04/02 [facility] HEMATOLOGY Platelet 378 133 - 450 04/02 Normal [facility] HEMATOLOGY MCHC 33.4 32.0 - 07 Normal [place] 36.0 /2012 [facility] HEMATOLOGY RDW 17.3 11.5 - 04/02 HI [place] 14.5 [facility] HEMATOLOGY MCV 76.0 81.0 - 04/02 [facility] [place] 99.0 /2012 [facility] HEMATOLOGY MCH 25.4 27.0 - 04/02 LOW [place] 31.0 /2012 [facility] HEMATOLOGY Hct 34.2 36.0 - 04/02 LOW [place] 48.0 /2012 [facility] HEMATOLOGY RBC 4.50 4.20 - 04/02 Normal [place] 5.40 /2012 [facility] HEMATOLOGY Hgb 11.4 12.0 - 04/02 [facility] [place] 16.0 /2012 [facility] HEMATOLOGY WBC 9.0 3.7 - 10.4 04/02 Normal [facility] HEMATOLOGY MPV 8.4 7.4 - 10.4 04/02 Normal [facility] HEMATOLOGY Microcyte 2+ None Seen 04/02 ABN [place] *ABN* /2012 Medical (04/02/2013 17:09:00) [place] HEMATOLOGY Basophils # 0.1 0.0 - 0.2 04/02 Normal [facility] HEMATOLOGY Eosinophils # 0.1 0.0 - 0.5 04/02 Normal [facility] HEMATOLOGY Monocytes # 0.7 0.0 - 0.8 04/02 Normal [facility] HEMATOLOGY Lymphocytes # 1.4 1.0 - 5.5 04/02 Normal [facility] HEMATOLOGY Segs-Bands # 6.7 1.5 - 8.1 04/02 Normal [facility] HEMATOLOGY Basophils 1.3 0.0 - 1.0 04/02 HI [facility] HEMATOLOGY Lymphocytes 15.2 20.0 - 04/02 LOW [place] 40.0 [facility] HEMATOLOGY Segs 74.3 45.0 - 04/02 Normal [place] 75.0 [facility] HEMATOLOGY Eosinophils 1.6 0.0 - 4.0 04/02 Normal [facility] HEMATOLOGY Monocytes 7.6 2.0 - 12.0 04/02 Normal [facility] Center BEDSIDE Gluc POC 229 70 - 99 03/09 HI <sup>1</sup>I [facility] GLUCOSE Lifsc[facility] /2012 nterpretive Medical TESTING Data: Center Upper Reportable Limit: 200 mg/dL. BEDSIDE Comment1 Notify 03/09 NA [facility] GLUCOSE RN/ Medical TESTING Center CHEMISTRY [...] BUN 7 7 - 22 03/09 Normal [facility] CHEMISTRY Creatinine 0.8 0.5 - 1.4 03/09 [facility] CHEMISTRY Sodium Lvl 138 135 - 145 03/09 [facility] CHEMISTRY Potassium Lvl 4.7 3.5 - 5.1 03/09 [facility] CHEMISTRY Chloride Lvl 104 95 - 109 / Normal [facility] CHEMISTRY CO2 23 24 - 32 03/09 [facility] CHEMISTRY Bili Total 0.2 0.2 - 1.3 03/09 [facility] CHEMISTRY AST 22 0 - 37 / [facility] CHEMISTRY Total Protein 4.8 6.4 - 8.4 03/09 [facility] CHEMISTRY Calcium Lvl 7.4 8.5 - 10.5 03/09 [facility] CHEMISTRY Albumin Lvl 1.9 3.5 - 5.0 03/09 [facility] CHEMISTRY Glucose Lvl 192 70 - 99 07 HI <sup>7</sup>I nterpretive Medical Data: Adult Center reference range values reflect the clinical guidelines
of the [place] [employer]. CHEMISTRY Alk Phos 162 39 - 136 07/ HI [facility] CHEMISTRY ALT 18 0 - 65 07 Normal [facility] CHEMISTRY A/G Ratio 0.7 0.7 - 1.6 03/09 Normal [facility] CHEMISTRY Globulin 2.9 2.0 - 4.0 07 Normal [facility] CHEMISTRY AGAP 15.7 10.0 - 0704 Normal [place] 20.0 [facility] CHEMISTRY B/C Ratio 9 6 - 25 07 Normal [facility] HEMATOLOGY Eosinophils 1.9 0.0 - 4.0 07/ Normal [facility] HEMATOLOGY Basophils 1.0 0.0 - 1.0 03/09 Normal [facility] HEMATOLOGY Anisocyte 1+ None Seen 03/09 [facility] [place] *ABN* /2012 [facility] (03/09/2013 01:09:00) [place] HEMATOLOGY Lymphocytes # 2.0 1.0 - 5.5 07/ Normal [facility] HEMATOLOGY Monocytes # 0.6 0.0 - 0.8 07/ Normal [facility] HEMATOLOGY Eosinophils # 0.1 0.0 - 0.5 07/ Normal [facility] HEMATOLOGY Basophils # 0.1 0.0 - 0.2 07 Normal [facility] HEMATOLOGY Segs-Bands # 4.6 1.5 - 8.1 07 Normal [facility] HEMATOLOGY Segs 62.8 45.0 - 07/04 Normal [place] 75.0 /2012 [facility] HEMATOLOGY Lymphocytes 26.4 20.0 - 07/04 Normal [place] 40.0 /2012 [facility] HEMATOLOGY Monocytes 7.9 2.0 - 12.0 07/ Normal [facility] HEMATOLOGY RDW 20.7 11.5 - 07/04 HI [place] 14.5 [facility] HEMATOLOGY Platelet 304 133 - 450 07/ Normal [facility] HEMATOLOGY MPV 8.0 7.4 - 10.4 07 Normal [facility] HEMATOLOGY Hct 24.9 36.0 - 07/ [facility] [place] 48.0 /2013 [facility] HEMATOLOGY MCV 79.3 81.0 - 07/ [facility] [place] 99.0 /2012 [facility] HEMATOLOGY MCH 24.7 27.0 - 07/ [facility] [place] 31.0 /2012 [facility] HEMATOLOGY MCHC 31.2 32.0 - 07/ [facility] [place] 36.0 /2012 [facility] HEMATOLOGY RBC 3.14 4.20 - 07/ [facility] [place] 5.40 /2012 [facility] HEMATOLOGY Hgb 7.8 12.0 - 07/ [facility] [place] 16.0 /2012 [facility] HEMATOLOGY WBC 7.4 3.7 - 10.4 07/ Normal [facility] BEDSIDE Gluc POC 131 70 - 99 03/09 [place] <sup>2</sup>I [facility] GLUCOSE nterpretive Medical TESTING Data: [place] Upper Reportable Limit: 200 mg/dL. BEDSIDE Comment1 Notify 03/09 NA [facility] GLUCOSE RN/MD /2012 [facility] TESTING Center BEDSIDE Comment1 Notify 03/09 NA [facility] GLUCOSE RN/MD /2012 [facility] TESTING [place] BEDSIDE Gluc POC 155 70 - 99 03/09 [place] <sup>3</sup>I [facility] GLUCOSE [facility] nterpretive Medical TESTING Data: [place] Upper Reportable Limit: 200 mg/dL. CHEMISTRY Magnesium Lvl 1.5 1.8 - 2.4 03/08 [facility] CHEMISTRY A/G Ratio 0.7 0.7 - 1.6 03/08 Normal [facility] CHEMISTRY B/C Ratio 8 6 - 25 03/08 Normal [facility] CHEMISTRY Globulin 2.8 2.0 - 4.0 03/08 Normal [facility] CHEMISTRY AGAP 15.8 10.0 - 07/03 Normal [place] 20.0 [facility] CHEMISTRY Potassium Lvl 3.8 3.5 - 5.1 07 Normal [facility] CHEMISTRY Chloride Lvl 100 95 - 109 07/ Normal [facility] CHEMISTRY CO2 23 24 - 32 07/ [facility] CHEMISTRY Total Protein 4.8 6.4 - 8.4 07 [facility] CHEMISTRY AST 10 0 - 37 07 Normal [facility] CHEMISTRY Calcium Lvl 7.6 8.5 - 10.5 03/08 [facility] CHEMISTRY Bili Total 0.3 0.2 - 1.3 03/08 Normal [facility] CHEMISTRY eGFR 88 03/08 NA <sup>5</sup>R [...] 99 03/08 HI <sup>8</sup>I nterpretive Medical Data: [facility] Center reference range values reflect the clinical guidelines
of the [place] [employer]. CHEMISTRY BUN 6 7 - 22 03/08 [facility] CHEMISTRY Creatinine 0.8 0.5 - 1.4 03/08 [facility] /2012 [facility] CHEMISTRY Sodium Lvl 135 135 - 145 03/08 [facility] CHEMISTRY Alk Phos 173 39 - 136 03/08 [facility] CHEMISTRY ALT 16 0 - 65 / [facility]2012 [facility] CHEMISTRY Albumin Lvl 2.0 3.5 - 5.0 03/08 [facility]2012 [facility] CHEMISTRY Lipase Lvl 54 73 - 393 03/08 [facility]2012 [facility] CHEMISTRY Amylase Lvl 30 25 - 115 / [facility]2012 [facility] HEMATOLOGY Basophils # 0.1 0.0 - 0.2 03/08 [facility] HEMATOLOGY Anisocyte 1+ None Seen 03/08 ABN [facility] [place] *ABN* /2012 Medical (03/08/2013 03:01:00) Center HEMATOLOGY Microcyte 1+ None Seen 03/08 [facility] [place] *ABN* /2012 Medical (03/08/2013 03:01:00) Center HEMATOLOGY Eosinophils # 0.2 0.0 - 0.5 07 Normal [facility] HEMATOLOGY Monocytes # 0.8 0.0 - 0.8 03/08 Normal [facility] HEMATOLOGY Lymphocytes 34.2 20.0 - 07 Normal [place] 40.0 /2012 [facility] HEMATOLOGY Segs 53.3 45.0 - 07 Normal [place] 75.0 /2012 [facility] HEMATOLOGY Lymphocytes # 3.0 1.0 - 5.5 07 Normal [facility] HEMATOLOGY Segs-Bands # 4.7 1.5 - 8.1 07 Normal [facility] HEMATOLOGY Basophils 0.9 0.0 - 1.0 / Normal [facility] HEMATOLOGY Eosinophils 2.6 0.0 - 4.0 07/ Normal [facility] HEMATOLOGY Monocytes 9.0 2.0 - 12.0 07/ Normal [facility] HEMATOLOGY Hgb 7.9 12.0 - 07 [facility] [place] 16.0 /2012 [facility] HEMATOLOGY RBC 3.12 4.20 - 07 [facility] [place] 5.40 /2012 [facility] HEMATOLOGY MPV 8.0 7.4 - 10.4 07 Normal [facility] HEMATOLOGY Platelet 294 133 - 450 07 Normal [facility] HEMATOLOGY MCH 25.3 27.0 - 07 [facility] [place] 31.0 /2012 [facility] HEMATOLOGY MCV 79.7 81.0 - 07/ [facility] [place] 99.0 /2012 [facility] HEMATOLOGY Hct 24.9 36.0 - 07/ [facility] [place] 48.0 /2012 [facility] HEMATOLOGY WBC 8.8 3.7 - 10.4 07/ Normal [facility] HEMATOLOGY RDW 21.4 11.5 - 07/03 [facility] [place] 14.5 /2012 [facility] HEMATOLOGY MCHC 31.8 32.0 - 07/03 [facility] [place] 36.0 /2012 [facility] CHEMISTRY Troponin-I <0.02 0.00 - 07 Normal [place] 0.40 /2012 [facility] CHEMISTRY Total CK 26 12 - 191 07/ Normal [facility] CHEMISTRY A/G Ratio 0.6 0.7 - 1.6 07/ LOW [facility] CHEMISTRY Bili Total 0.6 0.2 - 1.3 07/ Normal [facility] CHEMISTRY Bili Direct 0.3 0.0 - 0.3 07/ Normal [facility] CHEMISTRY Alk Phos 190 39 - 136 07/ HI [facility] CHEMISTRY Total Protein 5.2 6.4 - 8.4 07/ [facility] CHEMISTRY Globulin 3.2 2.0 - 4.0 07/ Normal [facility] CHEMISTRY Bili Indirect 0.3 0.0 - 1.0 07/ Normal [facility] CHEMISTRY AST 11 0 - 37 07/ Normal [facility] CHEMISTRY Albumin Lvl 2.0 3.5 - 5.0 07 LOW [facility] CHEMISTRY ALT 19 0 - 65 07/ Normal [facility] CHEMISTRY Amylase Lvl 26 25 - 115 07/ Normal [facility] CHEMISTRY Lipase Lvl 49 73 - 393 07/ [facility] HEMATOLOGY MPV 8.3 7.4 - 10.4 07/ Normal [facility] HEMATOLOGY MCH 24.7 27.0 - 07/ [facility] [place] 31.0 /2012 Medical [place] HEMATOLOGY MCHC 32.6 32.0 - 07/02 Normal [place] 36.0 /2012 [facility] HEMATOLOGY RDW 20.1 11.5 - 07/ [facility] [place] 14.5 /2012 Medical [place] HEMATOLOGY Platelet 362 133 - 450 07/ Normal [facility] HEMATOLOGY MCV 75.7 81.0 - 07/02 [facility] [place] 99.0 /2012 Medical [place] HEMATOLOGY Hgb 8.8 12.0 - 07/02 [facility] [place] 16.0 /2012 Medical [place] HEMATOLOGY Hct 26.9 36.0 - 07/02 [facility] [place] 48.0 /2012 [facility] HEMATOLOGY RBC 3.56 4.20 - 07/02 [facility] [place] 5.40 /2012 Medical [place] HEMATOLOGY WBC 11.1 3.7 - 10.4 07/ [facility] Medical [place] HEMATOLOGY Lymphocytes # 2.4 1.0 - 5.5 07/ Normal [facility] HEMATOLOGY Hypochrom Slight None Seen 03/07 Normal [facility] (03/07/2013 07:43:59) [facility] HEMATOLOGY Microcyte 2+ None Seen 03/07 [facility] *ABN* Medical (03/07/2013 07:43:59) Center HEMATOLOGY Anisocyte 1+ None Seen 03/07 [facility] *ABN* Medical (03/07/2013 07:43:59) Center HEMATOLOGY Basophils # 0.1 0.0 - 0.2 03/07 Normal [facility] HEMATOLOGY Polychrom Slight None Seen 03/07 Normal [facility] (03/07/2013 07:43:59) [facility] HEMATOLOGY Basophils 0.8 0.0 - 1.0 03/07 [facility] HEMATOLOGY Eosinophils 1.3 0.0 - 4.0 03/07 [facility] HEMATOLOGY Segs-Bands # 7.6 1.5 - 8.1 03/07 [facility] HEMATOLOGY Monocytes 8.1 2.0 - 12.0 03/07 Normal [facility] HEMATOLOGY Monocytes # 0.9 0.0 - 0.8 03/07 HI [facility] HEMATOLOGY Eosinophils # 0.1 0.0 - 0.5 03/07 [facility] HEMATOLOGY Target Cell Slight None Seen 03/07 [facility] * Medical (03/07/2013 07:43:59) [place] HEMATOLOGY Plt Morph Normal 03/07 [facility] (03/07/2013 07:43:59) [facility] HEMATOLOGY Lymphocytes 22.0 20.0 - 03/07 [facility] 40.0 [facility] HEMATOLOGY Segs 67.8 45.0 - 07 Normal [facility] 75.0 [facility] CHEMISTRY Lactic Acid 1.7 0.5 - 2.2 03/07 Normal [facility] Lvl [facility] CHEMISTRY Total CK 21 12 - 191 03/07 Normal [facility] CHEMISTRY Troponin-I <0.02 0.00 - 07 Normal [facility] 0.40 /2012 [facility] CHEMISTRY eGFR 104 03/07 NA <sup>6</sup>R [...] CO2 27 24 - 32 03/07 Normal [facility] CHEMISTRY Potassium Lvl 3.6 3.5 - 5.1 03/07 Normal [facility] CHEMISTRY Chloride Lvl 99 95 - 109 03/07 [facility] [facility] CHEMISTRY Sodium Lvl 134 135 - 145 07 [facility] CHEMISTRY BUN 5 7 - 22 07 [facility] CHEMISTRY Creatinine 0.7 0.5 - 1.4 03/07 Normal [place] [facility] /2012 [facility] CHEMISTRY Glucose Lvl 233 70 - 99 03/07 HI <sup>9</sup>I nterpretive Medical Data: Adult Center reference range values reflect the clinical guidelines
of the [place] [employer]. CHEMISTRY Calcium Lvl 7.7 8.5 - 10.5 03/07 [facility] CHEMISTRY AGAP 11.6 10.0 - 07 Normal [facility] 20.0 /2012 [facility] CHEMISTRY Temp Art 37.0 03/07 NA [facility] CHEMISTRY pH Art 7.41 7.35 - 07 [facility] 7.45 /2012 [facility] CHEMISTRY pCO2 Art 34 35 - 45 07 [facility] CHEMISTRY O2 Sat Art 97.5 95.0 - 07 [facility] [place] 100.0 /2012 [facility] CHEMISTRY HCO3 Art 22 22 - 26 07 [facility] CHEMISTRY BE Art -2 -2-2 - [...] pH Mark 7.46 7.28 - 03/07 HI [facility] 7.42 /2012 Medical Center CHEMISTRY Lactic Acid 2.6 0.5 - 2.2 03/07 HI [facility] Lvl /2012 [facility] Center CHEMISTRY Phosphorus 3.1 2.5 - 4.5 03/07 Normal [facility] CHEMISTRY Magnesium Lvl 1.6 1.8 - 2.4 03/07 LOW [facility] CHEMISTRY Total CK 31 12 - 191 03/07 Normal [facility] CHEMISTRY Troponin-I <0.02 0.00 - 03/07 Normal [facility] 0.40 /2012 Medical Center CHEMISTRY U Preg Negative Negative 03/06 Normal [facility] (03/06/2013 18:25:00) Medical Center URINALYSIS UA Amorph Occasional /HPF None Seen 03/06 ABN [facility] Emily *ABN* /2012 Medical (03/06/2013 18:25:00) Center URINALYSIS UA Mucus Few /LPF None Seen 03/06 Normal [facility] (03/06/2013 18:25:00) Medical Center URINALYSIS Micro? Performed 03/06 Normal [facility] (03/06/2013 18:25:00) Medical Center URINALYSIS UA Sq Epi Moderate /LPF Few 03/06 ABN [facility] *ABN* /2012 Medical (03/06/2013 18:25:00) Center URINALYSIS UA WBC 0-2 /HPF None Seen 03/06 Normal [facility] (03/06/2013 18:25:00) Medical Center URINALYSIS UA RBC None Seen 0 - 2 03/06 Normal [facility] (03/06/2013 18:25:00) /2012 Medical Center URINALYSIS UA Bacteria Few /HPF None Seen 03/06 Normal [facility] (03/06/2013 18:25:00) Medical Center URINALYSIS UA Bili Negative Negative 03/06 NA [facility] *NA* /2012 Medical (03/06/2013 18:25:00) Center URINALYSIS UA 0.2 0.1 - 1.0 03/06 Normal [facility] Urobilinogen /2012 Medical Center URINALYSIS UA Nitrite Negative Negative 03/06 Normal [facility] (03/06/2013 18:25:00) Medical Center URINALYSIS UA Leuk Est Trace Negative 03/06 ABN [facility] *ABN* Medical (03/06/2013 18:25:00) Center URINALYSIS UA Blood Negative Negative 03/06 Normal [facility] (03/06/2013 18:25:00) Medical Center URINALYSIS UA Ketones 40 mg/dL Negative 03/06 [facility] (03/06/2013 18:25:00) Center URINALYSIS UA Turbidity Clear Clear 03/06 Normal [facility] (03/06/2013 18:25:00) Medical Center URINALYSIS UA Color Yellow Yellow 03/06 NA [facility] *NA* Medical (03/06/2013 18:25:00) Center URINALYSIS UA Spec Grav 1.015 <=1.030 03/06 Normal [facility] Center URINALYSIS UA Protein Negative Negative 03/06 Normal [facility] (03/06/2013 18:25:00) Medical Center URINALYSIS UA Glucose 250 mg/dL Negative 03[facility]2013 18:25:00) Center URINALYSIS UA pH 7.5 5.0 - 8.0 03/06 Normal [facility] Center BEDSIDE Comment1 Notify 12/07 NA [facility] GLUCOSE RN/MD /2012 Medical TESTING Center BEDSIDE Gluc POC 64 70 - 99 12/07 LOW <sup>3</sup>I [facility] Data: Center Upper Reportable Limit: 200 mg/dL. BEDSIDE Gluc POC 50 70 - 99 12/07 LOW <sup>4</sup>I [facility] TEST[facility] Data: Center Upper Reportable Limit: 200 mg/dL. BEDSIDE Comment1 Notify 12/07 NA [facility] GLUCOSE RN/ /2012 Medical TESTING Center BEDSIDE Gluc POC 45 70 - 99 12/07 LOW <sup>5</sup>I [facility] GLUCOSE [facility] /2012 nterpretive Medical TESTING Data: Center Upper Reportable Limit: 200 mg/dL. BEDSIDE Comment1 Notify 12/07 NA [facility] GLUCOSE RN/ /2012 Medical TESTING Center CHEMISTRY eGFR 109 12/07 NA <sup>7</sup>R [facility] esult Medical Comment: The Center eGFR [...] Lvl 8.3 8.5 - 10.5 12/07 LOW [facility] CHEMISTRY AGAP 12.8 10.0 - 12/07 Normal [facility] 20.0 [facility] Center CHEMISTRY BUN 2 7 - 22 12/07 LOW [facility] Center CHEMISTRY Glucose Lvl 95 70 - 99 12/07 Normal <sup>10</sup> Interpretive Medical Data: Adult Center reference range values reflect the clinical guidelines
of the [place] [employer]. CHEMISTRY Potassium Lvl 3.8 3.5 - 5.1 12/07 Normal [facility] Center CHEMISTRY Creatinine 0.6 0.5 - 1.4 12/07 Normal [facility] Lvl /2012 Medical Center CHEMISTRY Sodium Lvl 140 135 - 145 12/07 Normal [facility] Center CHEMISTRY Chloride Lvl 105 95 - 109 04/03 Normal [facility] CHEMISTRY CO2 26 24 - 32 12/07 Normal Medical Center BEDSIDE Comment2 Verify 12/06 NA [facility] GLUCOSE w/Lab [facility] TESTING Center BEDSIDE Comment2 Verify 12/06 NA [facility] GLUCOSE w/Lab [facility] TESTING Center CHEMISTRY AGAP 13.5 10.0 - 04 Normal [facility] 20.0 /2012 [facility] CHEMISTRY Calcium Lvl 8.1 8.5 - 10.5 12/06 LOW [facility] CHEMISTRY CO2 28 24 - 32 12/06 Normal [facility] CHEMISTRY Chloride Lvl 101 95 - 109 12/06 Normal [facility] CHEMISTRY eGFR 104 12/06 NA <sup>8</sup>R [...] clinical guidelines
of the [place] [employer]. CHEMISTRY BUN 2 7 - 22 12/06 LOW [facility] CHEMISTRY Creatinine 0.7 0.5 - 1.4 12/06 Normal [place] [facility] CHEMISTRY Sodium Lvl 139 135 - 145 12/06 Normal [facility] CHEMISTRY Potassium Lvl 3.5 3.5 - 5.1 12/06 Normal [facility] CHEMISTRY Lipase Lvl 62 73 - 393 04/ LOW [facility] CHEMISTRY Alk Phos 92 39 - 136 / Normal [facility] CHEMISTRY Albumin Lvl 2.7 3.5 - 5.0 / LOW [facility] CHEMISTRY Total Protein 5.8 6.4 - 8.4 / LOW [facility] CHEMISTRY Globulin 3.1 2.0 - 4.0 / Normal [facility] CHEMISTRY A/G Ratio 0.9 0.7 - 1.6 / Normal [facility] CHEMISTRY AST 74 0 - 37 04/ HI [facility] CHEMISTRY ALT 50 0 - 65 / Normal 2012 [facility] CHEMISTRY Bili Indirect 0.1 0.0 - 1.0 12/06 Normal [facility] CHEMISTRY Bili Total 0.2 0.2 - 1.3 12/06 Normal [facility] CHEMISTRY Bili Direct 0.1 0.0 - 0.3 12/06 Normal [facility] CHEMISTRY eGFR 109 12/05 NA <sup>9</sup>R [...] clinical guidelines
of the [place] [employer]. CHEMISTRY Creatinine 0.6 0.5 - [...] Lvl 1.8 1.8 - 2.4 12/03 Normal [facility] Center CHEMISTRY Phosphorus 3.4 2.5 - 4.5 12/03 Normal [facility] HEMATOLOGY Lymphocytes # 1.8 1.0 - 5.5 12/03 Normal [facility] HEMATOLOGY Lymphocytes 23.6 20.0 - 12/03 Normal [place] 40.0 [facility] Center HEMATOLOGY Eosinophils 2.9 0.0 - 4.0 12/03 Normal Medical [facility] HEMATOLOGY Monocytes 9.1 2.0 - 12.0 12/03 Normal [facility] HEMATOLOGY Basophils 0.6 0.0 - 1.0 12/03 Normal [facility] HEMATOLOGY Segs-Bands # 5.0 1.5 - 8.1 12/03 Normal [facility] HEMATOLOGY Segs 63.8 45.0 - 12/03 Normal [place] 75.0 /2012 Medical Center HEMATOLOGY Monocytes # 0.7 0.0 - 0.8 12/03 Normal [facility] Center HEMATOLOGY Eosinophils # 0.2 0.0 - 0.5 12/03 Normal [facility] HEMATOLOGY Microcyte 1+ None Seen 12/03 ABN [facility] *ABN* /2012 Medical (12/03/2012 01:02:00) Center HEMATOLOGY WBC 7.8 3.7 - 10.4 12/03 Normal [facility] HEMATOLOGY Hct 27.8 36.0 - 12/03 LOW [facility] 48.0 /2012 [facility] HEMATOLOGY MPV 8.5 7.4 - 10.4 12/03 Normal [facility] HEMATOLOGY MCHC 32.4 32.0 - 12/03 Normal [facility] 36.0 /2012 [facility] HEMATOLOGY RDW 18.9 11.5 - 12/03 HI [facility] 14.5 /2012 [facility] HEMATOLOGY MCH 24.6 27.0 - 12/03 LOW [facility] 31.0 /2012 [facility] HEMATOLOGY RBC 3.66 4.20 - 12/03 LOW [facility] 5.40 /2012 [facility] HEMATOLOGY MCV 75.9 81.0 - 12/03 LOW [facility] 99.0 /2012 [facility] HEMATOLOGY Platelet 224 133 - 450 12/03 Normal [facility] HEMATOLOGY Hgb 9.0 12.0 - 12/03 LOW [facility] 16.0 /2012 [facility] Center Microbiolog Culture: 12/02 [facility] y Blood /2012 [facility] Center Microbiolog Culture: MRSA 12/02 [facility] y /2012 [facility] Microbiolog Culture: 12/02 [facility] y Resistant [facility] Center Screen CHEMISTRY Ketone 1.42 <=0.27 12/02 HI [facility] Quantitative [facility] URINALYSIS UA WBC 1 0 - 5 12/02 Normal [facility] URINALYSIS UA RBC <1 0 - 2 12/02 Normal [facility] URINALYSIS UA 0.1 - 1.0 12/02 [facility] Urobilinogen /2012 [facility] Center URINALYSIS UA Sq Epi Moderate /LPF Few 12/02 [facility] *ABN* Medical (12/02/2012 04:02:55) Center URINALYSIS UA Leuk Est Negative Negative 12/02 Normal [facility] (12/02/2012 04:02:55) Medical Center URINALYSIS UA Nitrite Negative Negative 12/02 Normal [facility] (12/02/2012 04:02:55) Medical Center URINALYSIS UA Mucus Few /LPF None Seen 12/02 [facility] *NA* Medical (12/02/2012 04:02:55) Center URINALYSIS UA Ketones 40 mg/dL Negative 12/02 ABN [facility] *ABN* Medical (12/02/2012 04:02:55) Center URINALYSIS UA Blood Negative Negative 12/02 Normal [facility] (12/02/2012 04:02:55) Medical Center URINALYSIS UA Glucose >=1000 mg/dL Negative 12/02 ABN [facility] *ABN* Medical (12/02/2012 04:02:55) Center URINALYSIS UA Bili Negative Negative 12/02 NA [facility] *NA* Medical (12/02/2012 04:02:55) Center URINALYSIS UA Protein Negative mg/dL Negative 12/02 Normal [facility] (12/02/2012 04:02:55) Medical Center URINALYSIS UA Turbidity Clear Clear 12/02 Normal [facility] (12/02/2012 04:02:55) Medical Center URINALYSIS UA pH 5.5 5.0 - 8.0 12/02 Normal [facility] Center URINALYSIS UA Spec Grav 1.010 <=1.030 12/02 Normal [facility] Center URINALYSIS UA Color Yellow Yellow 12/02 NA [facility] *NA* Medical (12/02/2012 04:02:55) Center HEMATOLOGY MPV 8.9 7.4 - 10.4 12/02 Normal [facility] HEMATOLOGY Hct 27.9 36.0 - 12/02 LOW [place] 48.0 /2012 [facility] HEMATOLOGY MCV 76.1 81.0 - 12/02 LOW [facility] 99.0 /2012 [facility] HEMATOLOGY MCH 25.2 27.0 - 12/02 LOW [place] 31.0 /2012 [facility] HEMATOLOGY MCHC 33.2 32.0 - 12/02 Normal [facility] 36.0 /2012 [facility] HEMATOLOGY RDW 19.3 11.5 - 12/02 HI [place] 14.5 [facility] HEMATOLOGY Platelet 224 133 - 450 12/02 Normal [facility] HEMATOLOGY WBC 8.6 3.7 - 10.4 12/02 Normal [facility] HEMATOLOGY Hgb 9.3 12.0 - 12/02 LOW [place] 16.0 [facility] HEMATOLOGY RBC 3.67 4.20 - 12/02 LOW [facility] [place] 5.40 /2012 [facility] HEMATOLOGY Segs-Bands # 6.4 1.5 - 8.1 12/02 Normal [facility] HEMATOLOGY Lymphocytes # 1.5 1.0 - 5.5 12/02 Normal [facility] HEMATOLOGY Eosinophils 0.6 0.0 - 4.0 12/02 Normal [facility] HEMATOLOGY Basophils 0.7 0.0 - 1.0 12/02 Normal [facility] HEMATOLOGY Lymphocytes 17.3 20.0 - 12/02 LOW [place] 40.0 [facility] HEMATOLOGY Monocytes # 0.7 0.0 - 0.8 12/02 Normal [facility] HEMATOLOGY Microcyte 1+ None Seen 12/02 [facility] *ABN* /2012 Medical (12/02/2012 04:02:51) [place] HEMATOLOGY Eosinophils # 0.1 0.0 - 0.5 12/02 Normal [facility] HEMATOLOGY Basophils # 0.1 0.0 - 0.2 12/02 Normal [facility] HEMATOLOGY Segs 73.8 45.0 - 12/02 Normal [place] 75.0 [facility] HEMATOLOGY Monocytes 7.6 2.0 - 12.0 12/02 Normal [facility] Microbiolog Culture: 12/02 [facility] y [facility] CHEMISTRY POC A Glu 305 70 - 99 12/02 HI [facility] CHEMISTRY POC A Hct 29.0 36.0 - 12/02 LOW [facility] 48.0 [facility] CHEMISTRY POC A O2 Sat 97.0 95.0 - 12/02 Normal 100.0 [facility] CHEMISTRY POC A K 3.4 3.5 - 5.1 12/02 LOW [facility] CHEMISTRY POC A Na 130 135 - 145 12/02 LOW [facility] CHEMISTRY POC A PCO2 38 35 - 45 12/02 Normal [facility] CHEMISTRY POC A BE 2 -2-2 - 2 12/02 Normal [facility] CHEMISTRY POC A HCO3 26 22 - 26 12/02 Normal [facility] CHEMISTRY POC A Source ART 12/02 NA [facility] CHEMISTRY POC A PO2 89 80 - 100 12/02 Normal [facility] CHEMISTRY POC A pH 7.44 7.35 - 12/02 Normal [facility] [place] 7.45 [facility] Center CHEMISTRY POC A Temp 37.0 12/02 NA [facility] CHEMISTRY POC A Ca Ion 1.12 1.16 - 12/02 LOW [place] 1.30 [facility] CHEMISTRY POC A LA 0.8 0.5 - 2.2 12/02 Normal [facility] Center CHEMISTRY Magnesium Lvl 1.9 1.8 - 2.4 12/02 Normal Medical Center CHEMISTRY Phosphorus 2.7 2.5 - 4.5 12/02 Normal [facility] CHEMISTRY Ca Norm mgdL 4.36 4.65 - 12/02 LOW [place] 5. [facility] CHEMISTRY Ca Ion 1.14 1.16 - 12/02 LOW [place] 1.30 [facility] CHEMISTRY Ca Ion mgdL 4.56 4.65 - 12/02 LOW [place] 5. [facility] CHEMISTRY Ca Norm 1.09 1.16 - 12/02 LOW [place] 1. Medical Center HEMATOLOGY Platelet 223 133 - 450 12/02 Normal [facility] Center HEMATOLOGY MPV 9.2 7.4 - 10.4 12/02 Normal Medical Center HEMATOLOGY MCHC 32.3 32.0 - 12/02 Normal [place] 36.0 [facility] Center HEMATOLOGY RDW 19.2 11.5 - 12/02 HI [place] 14.5 Medical Center HEMATOLOGY WBC 7.6 3.7 - 10.4 12/02 Normal [facility] Center HEMATOLOGY Hgb 9.2 12.0 - 12/02 LOW [place] 16.0 [facility] Center HEMATOLOGY Hct 28.6 36.0 - 12/02 LOW [place] 48.0 /2012 [facility] Center HEMATOLOGY MCV 76.3 81.0 - 12/02 LOW [place] 99.0 /2012 Medical Center HEMATOLOGY MCH 24.6 27.0 - 12/02 LOW [place] 31.0 [facility] Center HEMATOLOGY RBC 3.74 4.20 - 12/02 LOW [place] 5.40 /2012 [facility] HEMATOLOGY Microcyte 1+ None Seen 12/02 ABN [place] *ABN* /2012 Medical (12/02/2012 03:00:00) Center HEMATOLOGY Basophils # 0.1 0.0 - 0.2 12/02 Normal Medical Center HEMATOLOGY Monocytes # 0.6 0.0 - 0.8 12/02 Normal [facility] HEMATOLOGY Lymphocytes # 1.9 1.0 - 5.5 12/02 Normal [facility] HEMATOLOGY Segs-Bands # 5.0 1.5 - 8.1 12/02 Normal [facility] HEMATOLOGY Segs 65.5 45.0 - 12/02 Normal [place] 75.0 /2012 [facility] HEMATOLOGY Lymphocytes 25.0 20.0 - 12/02 Normal [place] 40.0 [facility] HEMATOLOGY Monocytes 8.4 2.0 - 12.0 12/02 Normal [facility] HEMATOLOGY Eosinophils 0.4 0.0 - 4.0 12/02 Normal [facility] HEMATOLOGY Basophils 0.7 0.0 - 1.0 12/02 Normal [facility] CHEMISTRY Magnesium Lvl 2.0 1.8 - 2.4 12/01 Normal [facility] CHEMISTRY Ca Norm mgdL 4.48 4.65 - 12/01 LOW [facility] 5. [facility] CHEMISTRY Ca Ion mgdL 4.68 4.65 - 12/01 Normal [facility] 5. [facility] CHEMISTRY Ca Ion 1.17 1.16 - 12/01 Normal [facility] 1. [facility] CHEMISTRY Ca Norm 1.12 1.16 - 12/01 LOW [facility] 1. [facility] CHEMISTRY Phosphorus 2.7 2.5 - 4.5 12/01 Normal [facility] URINALYSIS UA 0.1 - 1.0 11/30 NA [facility] Urobilinogen [facility] Center URINALYSIS UA Mucus Few /LPF None Seen 11/30 NA [facility] *NA* /2012 Medical (11/30/2012 17:41:33) Center URINALYSIS UA WBC <1 0 - 5 11/30 Normal [facility] Center URINALYSIS UA Sq Epi Moderate /LPF Few 11/30 ABN [facility] *ABN* Medical (11/30/2012 17:41:33) Center URINALYSIS UA Protein Negative mg/dL Negative 11/30 Normal [facility] (11/30/2012 17:41:33) [facility] Center URINALYSIS UA pH 5.0 5.0 - 8.0 11/30 Normal [facility] Center URINALYSIS UA Spec Grav 1.004 <=1.030 11/30 Normal Medical Center URINALYSIS UA Turbidity Clear Clear 11/30 Normal [facility] (11/30/2012 17:41:33) Medical Center URINALYSIS UA Color Light Yellow Yellow 11/30 NA [facility] *NA* Medical (11/30/2012 17:41:33) Center URINALYSIS UA Leuk Est Negative Negative 11/30 Normal [facility] (11/30/2012 17:41:33) Medical Center URINALYSIS UA Nitrite Negative Negative 11/30 Normal [facility] (11/30/2012 17:41:33) Medical Center URINALYSIS UA Blood Negative Negative 11/30 Normal [facility] (11/30/2012 17:41:33) Medical Center URINALYSIS UA Bili Negative Negative 11/30 NA [facility] *NA* Medical (11/30/2012 17:41:33) Center URINALYSIS UA Ketones 10 mg/dL Negative 11/30 ABN [facility] *ABN* Medical (11/30/2012 17:41:33) Center URINALYSIS UA Glucose Negative mg/dL Negative 11/30 NA [facility] *NA* /2012 Medical (11/30/2012 17:41:33) Center CHEMISTRY Ketone 1.65 <=0.27 11/30 HI [facility] Medical Center HEMATOLOGY PT 14.1 12.0 - 11/30 Normal [facility] 14.7 Medical Center HEMATOLOGY PTT 28.1 22.9 - 11/30 Normal <sup>18</sup> [facility] 35.8 Interpretive Medical Data: Heparin Center Therapeutic Range: 57 - 92 Seconds HEMATOLOGY INR 1.07 0.85 - 11/30 Normal <sup>16</sup> [facility] 1. Interpretive Medical Data: Center RECOMMENDED [...] ranges. CHEMISTRY U Chloride 134 11/30 NA [facility] CHEMISTRY Bili Total 0.4 0.2 - 1.3 11/30 Normal [facility] CHEMISTRY Total Protein 6.3 6.4 - 8.4 11/30 LOW [facility] CHEMISTRY Albumin Lvl 2.9 3.5 - 5.0 11/30 LOW [facility] CHEMISTRY Alk Phos 127 39 - 136 11/30 Normal [facility] CHEMISTRY Bili Direct 0.2 0.0 - 0.3 11/30 Normal [facility] CHEMISTRY AST 22 0 - 37 11/30 Normal [facility] CHEMISTRY ALT 20 0 - 65 11/30 Normal [facility] CHEMISTRY A/G Ratio 0.9 0.7 - 1.6 11/30 Normal [facility] CHEMISTRY Bili Indirect 0.2 0.0 - 1.0 11/30 Normal [facility] CHEMISTRY Globulin 3.4 2.0 - 4.0 11/30 Normal [facility] HEMATOLOGY Basophils # 0.1 0.0 - 0.2 11/30 Normal [facility] HEMATOLOGY PT 13.9 12.0 - 11/30 Normal [facility] 14.7 [facility] HEMATOLOGY PTT 26.5 22.9 - 11/30 Normal <sup>19</sup> [facility] 35.8 /2012 Interpretive Medical Data: Heparin Center Therapeutic Range: 57 - 92 Seconds HEMATOLOGY INR 1.05 0.85 - 11/30 Normal <sup>17</sup> [facility] 1. Interpretive Medical Data: Center RECOMMENDED RANGES FOR PROTIME INR:
2.0-3.0 for most medical and surgical thromboemboli c states.
2.5-3.5 for artificial heart valves and recurrent embolism.<br/ >
INR SHOULD BE USED ONLY FOR PATIENTS ON STABLE ANTICOAGULANT THERAPY. CHEMISTRY POC V Temp 37.0 11/29 NA [facility] CHEMISTRY POC V Ion Ca 1.16 1.16 - 11/29 Normal [facility] 1. [facility] CHEMISTRY POC V K 3.5 3.5 [...] PCO2 26 35 - 45 11/29 CRIT [facility] CHEMISTRY POC A PO2 115 80 - 100 11/29 HI [facility] CHEMISTRY POC A pH 7.33 7.35 - 11/29 [facility] BACTERIAL - MRSA by PCR Positive 1, 2 11/29 ABN <sup>1</sup>R [facility] SEROLOGY *ABN* /2012 esult Medical (11/29/2012 [...] testing. CHEMISTRY Temp Art 37.0 11/29 NA [facility] CHEMISTRY O2 Sat Art 96.6 95.0 - 11/29 Normal [facility] 100.0 [facility] CHEMISTRY pO2 Art 96 80 - 100 11/29 Normal [facility] CHEMISTRY pCO2 Art 25 35 - 45 11/29 CRIT <sup>15</sup> Result Medical Comment: Center Critical Result(s) called to jose rodriguez at _11/29/2012 12:25:56 CDT byолегk_. Read back OK. CHEMISTRY BE Art -12 -2-2 - 2 11/29 LOW [facility] CHEMISTRY HCO3 Art 12 - 26 11/29 LOW [facility] CHEMISTRY pH Art 7.30 7.35 - 11/29 [facility] 7.45 /2012 [facility] CHEMISTRY A/G Ratio 0.8 0.7 - 1.6 11/29 Normal [facility] Center CHEMISTRY Globulin 4.0 2.0 - 4.0 11/29 Normal [facility] CHEMISTRY AST 17 0 - 37 11/29 Normal [facility] CHEMISTRY Bili Total 0.8 0.2 - 1.3 11/29 Normal [facility] CHEMISTRY B/C Ratio 14 6 - 25 11/29 Normal [facility] CHEMISTRY Total Protein 7.4 6.4 - 8.4 11/29 Normal [facility] CHEMISTRY ALT 22 0 - 65 11/29 Normal [facility] CHEMISTRY Albumin Lvl 3.4 3.5 - 5.0 11/29 LOW [facility] CHEMISTRY Alk Phos 126 39 - 136 11/29 Normal [facility] CHEMISTRY Troponin-I <0.02 0.00 - 11/29 Normal [facility] 0.40 [facility] Center CHEMISTRY Lipase Lvl 70 73 - 393 11/29 LOW [facility] CHEMISTRY B/C Ratio 10 6 - 25 11/29 Normal [facility] Center HEMATOLOGY Hypochrom Slight None Seen 11/29 Normal [facility] (11/28/2012 21:00:20) Medical Center HEMATOLOGY Polychrom Slight None Seen 11/29 Normal [facility] (11/28/2012 21:00:20) Medical Center HEMATOLOGY Anisocyte 1+ None Seen 11/29 [facility] *ABN* Medical (11/28/2012 21:00:20) Center HEMATOLOGY Large Plt Slight None Seen 11/29 ABN [facility] *ABN* Medical (11/28/2012 21:00:20) Center HEMATOLOGY Eosinophils # 0.2 0.0 - 0.5 11/29 Normal Medical Center CHEMISTRY U Preg Negative Negative 11/29 Normal [facility] (11/28/2012 20:55:00) Medical Center URINALYSIS UA Blood Negative Negative 11/29 Normal [facility] (11/28/2012 20:55:00) Medical Center URINALYSIS UA Bili Small 6 Negative 11/29 ABN <sup>6</sup>R [facility] *ABN* esult Medical (11/28/2012 20:55:00) Comment: Center Interpret positive bilirubin results with caution. Confirmatory testing
n ot possible due to the unavailabilit y of reagent. Correlation with
seru m chemistry results recommended. URINALYSIS UA Protein Negative Negative 11/29 Normal [facility] (11/28/2012 20:55:00) [facility] URINALYSIS Micro? Not Indicated 11/29 Normal [facility] (11/28/2012 20:55:00) Medical Center URINALYSIS UA Glucose Negative Negative 11/29 Normal [facility] (11/28/2012 20:55:00) [facility] Center URINALYSIS UA Ketones 40 mg/dL Negative 11/29 ABN [facility] *ABN* [facility] (11/28/2012 20:55:00) Center URINALYSIS UA Leuk Est Negative Negative 11/29 Normal [facility] (11/28/2012 20:55:00) [facility] URINALYSIS UA 0.2 0.1 - 1.0 11/29 Normal [facility] Urobilinogen [facility] URINALYSIS UA Nitrite Negative Negative 11/29 Normal [facility] (11/28/2012 20:55:00) [facility] URINALYSIS UA Spec Grav 1.010 <=1.030 11/29 Normal [facility] URINALYSIS UA pH 6.0 5.0 - 8.0 11/29 Normal [facility] URINALYSIS UA Color Yellow Yellow 11/29 NA [facility] *NA* [facility] (11/28/2012 20:55:00) Center URINALYSIS UA Turbidity Clear Clear 11/29 Normal [facility] (11/28/2012 20:55:00) Medical Center BEDSIDE Comment1 Notify 11/17 NA [facility] GLUCOSE MARTÍNEZ/ Medical TESTING Center BEDSIDE Gluc POC 219 70 - 99 11/17 HI <sup>1</sup>I [facility] GLUCOSE [place] nterpretive Medical TESTING Data: [place] Reportable Limit: 200 mg/dL. BEDSIDE Gluc POC 255 70 - 99 11/17 HI <sup>2</sup>I [facility] GLUCOSE [facility] nterpretive Medical TESTING Data: [place] Reportable Limit: 200 mg/dL. BEDSIDE Comment1 Notify 11/17 NA [facility] GLUCOSE MARTÍNEZ/ Medical TESTING Center CHEMISTRY Troponin-T <0.010 0.000 - 11/17 Normal [facility] 0.100 /2012 [facility] CHEMISTRY Troponin-I <0.02 0.00 - 11/17 Normal [facility] 0.40 /2012 [facility] CHEMISTRY Total CK 52 12 - 191 11/17 Normal [facility] CHEMISTRY eGFR 109 11/17 NA <sup>4</sup>R [...] Calcium Lvl 7.7 8.5 - 10.5 11/17 [facility] CHEMISTRY AGAP 16.2 10.0 - 11/17 [facility] 20.0 [facility] CHEMISTRY Chloride Lvl 100 95 - 109 11/17 [facility] CHEMISTRY Potassium Lvl 4.2 3.5 - 5.1 11/17 Normal [facility] CHEMISTRY Sodium Lvl 134 135 - 145 11/17 [facility] CHEMISTRY CO2 22 24 - 32 11/17 [facility] CHEMISTRY Creatinine 0.6 0.5 - 1.4 11/17 Normal [place] [facility] /2012 [facility] CHEMISTRY BUN 4 7 - 22 11/17 [facility] CHEMISTRY Glucose Lvl 237 70 - 99 11/17 HI <sup>6</sup>I nterpretive Medical Data: Adult Center reference range values reflect the clinical guidelines
of the [place] [employer]. CHEMISTRY Magnesium Lvl 1.4 1.8 - 2.4 11/17 LOW [facility] CHEMISTRY Phosphorus 3.4 2.5 - 4.5 11/17 Normal [facility] HEMATOLOGY Segs 60.3 45.0 - 11/17 Normal [facility] 75.0 [facility] HEMATOLOGY Monocytes 9.0 2.0 - 12.0 11/17 Normal [facility] HEMATOLOGY Lymphocytes 27.8 20.0 - 11/17 Normal [facility] 40.0 [facility] HEMATOLOGY Eosinophils 2.1 0.0 - 4.0 11/17 Normal [facility] HEMATOLOGY Lymphocytes # 2.3 1.0 - 5.5 11/17 Normal [facility] HEMATOLOGY Eosinophils # 0.2 0.0 - 0.5 11/17 Normal [facility] HEMATOLOGY Basophils 0.8 0.0 - 1.0 11/17 Normal [facility] HEMATOLOGY Segs-Bands # 5.1 1.5 - 8.1 11/17 Normal [facility] HEMATOLOGY Basophils # 0.1 0.0 - 0.2 11/17 Normal [facility] HEMATOLOGY Monocytes # 0.8 0.0 - 0.8 11/17 Normal [facility] HEMATOLOGY Microcyte 1+ None Seen 11/17 [facility] *ABN* /2012 Medical (11/17/2012 04:33:00) [place] HEMATOLOGY INR 1.09 0.85 - 11/17 Normal <sup>8</sup>I [facility] 1.17 nterpretive Medical Data: Center RECOMMENDED RANGES FOR PROTIME INR:
2.0-3.0 for most medical and surgical thromboemboli c states.
2.5-3.5 for artificial heart valves and recurrent embolism.<br/ >
INR SHOULD BE USED ONLY FOR PATIENTS ON STABLE ANTICOAGULANT THERAPY. HEMATOLOGY PT 14.3 12.0 - 11/17 Normal [facility] 14.7 [facility] HEMATOLOGY PTT 31.8 22.9 - 11/17 Normal <sup>9</sup>I [facility] 35.8 /2012 nterpretive Medical Data: [facility] Therapeutic Range: 57 - 92 [facility] HEMATOLOGY Platelet 177 133 - 450 11/17 Normal [facility] HEMATOLOGY MPV 9.5 7.4 - 10.4 [...] WBC 8.4 3.7 - 10.4 11/17 Normal [facility] Center HEMATOLOGY Hct 27.9 36.0 - 03 LOW [place] 48.0 /2012 Medical Center HEMATOLOGY Hgb 9.0 12.0 - 11/17 LOW [place] 16.0 /2012 [facility] CHEMISTRY Troponin-T <0.010 0.000 - 11/17 Normal [facility] 0.100 [facility] CHEMISTRY Troponin-I <0.02 0.00 - 11/17 Normal [facility] 0.40 [facility] CHEMISTRY Total CK 76 12 - 191 11/17 Normal [facility] CHEMISTRY CK MB Index 0.8 0.0 - 2.5 11/17 Normal [facility] Center CHEMISTRY CK MB 0.6 0.5 - 3.6 11/17 Normal [facility] Center BEDSIDE Gluc POC 305 70 - 99 11/17 HI <sup>3</sup>I [facility] GLUCOSE [employer] /2012 nterpretive Medical TESTING Data: Center Upper Reportable Limit: 200 mg/dL. BEDSIDE Comment1 Notify 11/17 NA [facility] GLUCOSE RN/MD /2012 Medical TESTING Center CHEMISTRY Magnesium Lvl 1.4 1.8 - 2.4 11/16 LOW [facility] CHEMISTRY Total CK 27 12 - 191 11/16 Normal [facility] Center CHEMISTRY Troponin-T <0.010 0.000 - 11/16 Normal [place] 0.100 Medical Center CHEMISTRY Troponin-I <0.02 0.00 - 11/16 Normal [place] 0.40 Medical Center CHEMISTRY B/C Ratio 6 6 - 25 11/16 Normal Medical Center CHEMISTRY A/G Ratio 1.0 0.7 - 1.6 11/16 Normal [facility] CHEMISTRY AGAP 18.6 10.0 - 11/16 Normal [facility] 20.0 [facility] CHEMISTRY Globulin 3.5 2.0 - 4.0 11/16 Normal [facility] CHEMISTRY eGFR 67 11/16 NA <sup>5</sup>R [...] Lvl 3.4 3.5 - 5.0 11/16 LOW [facility] CHEMISTRY Alk Phos 88 39 - 136 11/16 Normal [facility] CHEMISTRY Glucose Lvl 256 70 - 99 11/16 HI <sup>7</sup>I nterpretive Medical Data: Adult Center reference range values reflect the clinical guidelines
of the [place] [employer]. CHEMISTRY BUN 6 7 - 22 11/16 LOW [facility] CHEMISTRY Sodium Lvl 136 135 - 145 11/16 Normal [facility] CHEMISTRY Chloride Lvl 99 95 - 109 11/16 Normal [facility] CHEMISTRY Creatinine 1.0 0.5 - 1.4 11/16 Normal [place] [facility] CHEMISTRY Potassium Lvl 3.6 3.5 - 5.1 11/16 Normal [facility] CHEMISTRY CO2 22 24 - 32 11/16 [facility] CHEMISTRY Calcium Lvl 8.8 8.5 - 10.5 11/16 Normal [facility] CHEMISTRY Bili Total 0.6 0.2 - 1.3 11/16 Normal [facility] CHEMISTRY Total Protein 6.9 6.4 - 8.4 11/16 Normal [facility] CHEMISTRY AST 52 0 - 37 03 HI [facility] CHEMISTRY ALT 52 0 - 65 11/16 Normal [facility] CHEMISTRY Phosphorus 1.6 2.5 - 4.5 11/16 LOW [facility] HEMATOLOGY Lymphocytes 16.8 20.0 - 11/16 LOW [place] 40.0 [facility] HEMATOLOGY Segs 72.3 45.0 - 11/16 Normal [facility] 75.0 [facility] HEMATOLOGY Large Plt Slight None Seen 11/16 [facility] Medical (11/16/2012 13:17:00) Center HEMATOLOGY Elliptocyte Slight None Seen 11/16 [facility] * Medical (11/16/2012 13:17:00) Center HEMATOLOGY Polychrom Slight None Seen 11/16 Normal [facility] (11/16/2012 13:17:00) [facility] HEMATOLOGY Microcyte 1+ None Seen 11/16 [facility] Medical (11/16/2012 13:17:00) Center HEMATOLOGY Basophils # 0.1 0.0 - 0.2 11/16 Normal [facility] HEMATOLOGY Hypochrom Slight None Seen 11/16 Normal [facility] (11/16/2012 13:17:00) [facility] HEMATOLOGY Anisocyte 1+ None Seen 11/16 [facility] Medical (11/16/2012 13:17:00) Center HEMATOLOGY Schistocyte Occasional 11/16 NA [facility] HEMATOLOGY Monocytes 8.6 2.0 - 12.0 11/16 Normal [facility] HEMATOLOGY Eosinophils 1.5 0.0 - 4.0 11/16 Normal [facility] HEMATOLOGY Monocytes # 1.1 0.0 - 0.8 11/16 HI [facility] HEMATOLOGY Segs-Bands # 9.7 1.5 - 8.1 11/16 HI [facility] HEMATOLOGY Eosinophils # 0.2 0.0 - 0.5 11/16 Normal [facility] HEMATOLOGY Lymphocytes # 2.2 1.0 - 5.5 11/16 Normal [facility] HEMATOLOGY Basophils 0.8 0.0 - 1.0 11/16 Normal [facility] HEMATOLOGY Hgb 10.8 12.0 - 03 LOW [place] 16.0 /2012 [facility] HEMATOLOGY RBC 4.29 4.20 - 03 Normal [place] 5.40 /2012 [facility] Center HEMATOLOGY WBC 13.3 3.7 - 10.4 11/16 HI [facility] HEMATOLOGY RDW 18.0 11.5 - 11/16 HI [place] 14.5 /2012 Medical Center HEMATOLOGY Hct 32.4 36.0 - 03 LOW [place] 48.0 /2012 [facility] Center HEMATOLOGY MCHC 33.3 32.0 - 03 Normal [place] 36.0 /2012 [facility] HEMATOLOGY MCV 75.4 81.0 - 03 LOW [place] 99.0 /2012 [facility] HEMATOLOGY MCH 25.1 27.0 - 11/16 [facility] [place] 31.0 /2012 [facility] Center HEMATOLOGY Platelet 230 133 - 450 11/16 Normal [facility] HEMATOLOGY MPV 9.9 7.4 - 10.4 11/16 Normal [facility] BEDSIDE Comment1 Notify 11/14 NA [facility] GLUCOSE RN/ /2012 Medical TESTING Center BEDSIDE Gluc POC 266 70 - 99 11/14 HI <sup>2</sup>I [facility] GLUCOSE [facility] nterpretive Medical TESTING Data: [place] Upper Reportable Limit: 200 mg/dL. BEDSIDE Comment1 Notify 11/14 NA [facility] GLUCOSE RN/ [facility] TESTING Center BEDSIDE Gluc POC 140 70 - 99 11/14 HI <sup>3</sup>I [facility] GLUCOSE [facility] nterpretive Medical TESTING Data: [place] Upper Reportable Limit: 200 mg/dL. BEDSIDE Comment1 Notify 11/14 NA [facility] GLUCOSE RN/ /2012 Medical TESTING Center BEDSIDE Gluc POC 201 70 - 99 11/14 HI <sup>4</sup>I [facility] GLUCOSE [facility] nterpretive Medical TESTING Data: [place] Upper Reportable Limit: 200 mg/dL. CHEMISTRY A/G Ratio 0.9 0.7 - 1.6 11/14 Normal [facility] CHEMISTRY AST 41 0 - 37 11/14 HI [facility] Center CHEMISTRY eGFR 104 11/14 [...] Albumin Lvl 2.9 3.5 - 5.0 11/14 [facility] CHEMISTRY Alk Phos 84 39 - 136 11/14 Normal [facility]2012 [facility] CHEMISTRY BUN 3 7 - 22 11/14 [facility]2012 [facility] CHEMISTRY Creatinine 0.7 0.5 - 1.4 11/14 Normal [facility] /2012 [facility] CHEMISTRY Sodium Lvl 136 135 - 145 11/14 [facility]2012 [facility] CHEMISTRY Total Protein 6.3 6.4 - 8.4 11/14 [facility]2012 [facility] CHEMISTRY ALT 51 0 - 65 11/14 [facility]2012 [facility] CHEMISTRY Potassium Lvl 3.7 3.5 - 5.1 11/14 [facility]2012 [facility] CHEMISTRY Chloride Lvl 101 95 - 109 11/14 [facility]2012 [facility] CHEMISTRY Glucose Lvl 210 70 - 99 11/14 HI <sup>9</sup>I nterpretive Medical Data: Adult Center reference range values reflect the clinical guidelines
of the [place] [employer]. CHEMISTRY AGAP 15.7 10.0 - 11/14 Normal [facility] 20.0 [facility] CHEMISTRY B/C Ratio 4 6 - 25 11/14 [facility]2012 [facility] CHEMISTRY Globulin 3.4 2.0 - 4.0 11/14 [facility] CHEMISTRY CO2 23 24 - 32 03 LOW [facility] CHEMISTRY Bili Total 0.4 0.2 - 1.3 11/14 Normal [facility] CHEMISTRY Calcium Lvl 8.5 8.5 - 10.5 11/14 Normal [facility] CHEMISTRY Phosphorus 3.6 2.5 - 4.5 11/14 Normal [facility] CHEMISTRY Magnesium Lvl 1.5 1.8 - 2.4 11/14 LOW [facility] CHEMISTRY Ca Norm mgdL 3.52 4.65 - 11/14 LOW [place] 5. [facility] CHEMISTRY Ca Ion mgdL 3.32 4.65 - 11/14 CRIT [facility] . [facility] CHEMISTRY Ca Ion 0.83 1.16 - 11/14 CRIT <sup>15</sup> [facility] 10.05 Result Medical Comment: Center Critical Result(s) called to Arlin Rose at 11/14/2012 00:23:56 CDT_ by_tvs. Read back OK. CHEMISTRY Ca Norm 0.88 1.16 - 11/14 CRIT [facility] 1. [facility] HEMATOLOGY Platelet 221 133 - 450 11/14 Normal [facility] HEMATOLOGY RDW 19.0 11.5 - 03 [facility] [place] 14.5 Medical Center HEMATOLOGY MCHC 32.4 32.0 - 11/14 [facility] [place] 36.0 /2012 [facility] HEMATOLOGY MCV 75.5 81.0 - 11/14 [facility] [place] 99.0 /2012 Medical Center HEMATOLOGY Hct 35.5 36.0 - 11/14 [facility] [place] 48.0 /2012 Medical Center HEMATOLOGY Hgb 11.5 12.0 - 03 [facility] [place] 16.0 /2012 Medical Center HEMATOLOGY MCH 24.5 27.0 - 03 [facility] [place] 31.0 /2012 [facility] HEMATOLOGY MPV 9.1 7.4 - 10.4 11/14 Normal [facility] HEMATOLOGY RBC 4.70 4.20 - 11/14 Normal [place] 5.40 /2012 Medical Center HEMATOLOGY WBC 8.6 3.7 - 10.4 11/14 Normal [facility] HEMATOLOGY Segs 53.3 45.0 - 03 Normal [place] 75.0 /2012 [facility] HEMATOLOGY Microcyte 1+ None Seen 11/14 [facility] [place] *ABN* /2012 Medical (11/13/2012 23:45:00) [place] HEMATOLOGY Basophils # 0.1 0.0 - 0.2 11/14 Normal [facility] HEMATOLOGY Eosinophils # 0.2 0.0 - 0.5 11/14 Normal [facility] HEMATOLOGY Monocytes # 0.9 0.0 - 0.8 11/14 HI [facility] HEMATOLOGY Lymphocytes # 2.9 1.0 - 5.5 11/14 Normal [facility] HEMATOLOGY Monocytes 10.3 2.0 - 12.0 11/14 Normal [facility] HEMATOLOGY Lymphocytes 33.6 20.0 - 03 Normal [place] 40.0 /2012 [facility] HEMATOLOGY Segs-Bands # 4.6 1.5 - 8.1 11/14 Normal [facility] HEMATOLOGY Basophils 0.7 0.0 - 1.0 11/14 Normal [facility] HEMATOLOGY Eosinophils 2.1 0.0 - 4.0 11/14 Normal [facility] CHEMISTRY Lipase Lvl 43 73 - 393 11/13 LOW [facility] CHEMISTRY Amylase Lvl 14 25 - 115 11/13 LOW [facility] CHEMISTRY A/G Ratio 0.8 0.7 - 1.6 11/13 Normal [facility] CHEMISTRY AST 56 0 - 37 11/13 [facility] CHEMISTRY Alk Phos 67 39 - 136 11/13 Normal [facility] CHEMISTRY Globulin 2.9 2.0 - 4.0 11/13 Normal [facility] CHEMISTRY Total Protein 5.3 6.4 - 8.4 11/13 LOW [facility] CHEMISTRY Albumin Lvl 2.4 3.5 - 5.0 11/13 LOW [facility] CHEMISTRY ALT 41 0 - 65 11/13 Normal [facility] CHEMISTRY Bili Indirect 0.3 0.0 - 1.0 11/13 Normal [facility] CHEMISTRY Bili Direct 0.1 0.0 - 0.3 11/13 Normal [facility] CHEMISTRY Bili Total 0.4 0.2 - 1.3 11/13 Normal [facility] CHEMISTRY eGFR 137 11/13 NA <sup>7</sup>R [...] CHEMISTRY AGAP 17.3 10.0 - 11/13 Normal [facility] 20.0 [facility] CHEMISTRY Calcium Lvl 6.7 8.5 - 10.5 11/13 CRIT <sup>13</sup> Result Medical Comment: Center Critical Result(s) called to _hansel gustafson at _11/13/2012 06:59:47 CDT bylg. Read back OK. CHEMISTRY CO2 17 24 - 32 11/13 LOW [facility] CHEMISTRY Chloride Lvl 111 95 - 109 11/13 HI [facility] CHEMISTRY Potassium Lvl 3.3 3.5 - 5.1 11/13 LOW <sup>5</sup>R esult Medical Comment: Center Specimen Slightly Hemolyzed. CHEMISTRY Sodium Lvl 142 135 - 145 11/13 Normal [facility] CHEMISTRY Creatinine 0.3 0.5 - 1.4 11/13 LOW [facility] /2012 [facility] CHEMISTRY BUN 3 7 - 22 11/13 LOW [facility] CHEMISTRY Glucose Lvl 104 70 - 99 11/13 HI <sup>10</sup> Interpretive Medical Data: Adult Center reference range values reflect the clinical guidelines
of the [place] [employer]. CHEMISTRY Magnesium Lvl 1.3 1.8 - 2.4 11/13 [facility] CHEMISTRY Phosphorus 2.8 2.5 - 4.5 03 Normal [facility] CHEMISTRY Ca Ion 1.01 1.16 - 11/13 [facility] [place] 1.30 [facility] CHEMISTRY Ca Norm 1.07 1.16 - 11/13 [facility] [place] 1.30 [facility] CHEMISTRY Ca Norm mgdL 4.28 4.65 - 11/13 [facility] [place] 5. [facility] CHEMISTRY Ca Ion mgdL 4.04 4.65 - 11/13 [facility] [place] 5.20 Medical [place] HEMATOLOGY MCV 78.6 81.0 - 03 [facility] [place] 99.0 /2012 [facility] HEMATOLOGY MPV 9.1 7.4 - 10.4 11/13 Normal [facility] HEMATOLOGY MCHC 31.1 32.0 - 03 [facility] [place] 36.0 /2012 [facility] HEMATOLOGY MCH 24.4 27.0 - 03 [facility] [place] 31.0 [facility] HEMATOLOGY Hct 29.4 36.0 - 11/13 [facility] [place] 48.0 /2012 [facility] HEMATOLOGY RDW 19.1 11.5 - 03 HI [place] 14.5 /2012 Medical [place] HEMATOLOGY Platelet 192 133 - 450 11/13 Normal [facility] HEMATOLOGY Hgb 9.1 12.0 - 03 [facility] [place] 16.0 /2012 [facility] HEMATOLOGY RBC 3.74 4.20 - 11/13 [facility] [place] 5.40 /2012 Medical [place] HEMATOLOGY WBC 6.8 3.7 - 10.4 11/13 Normal [facility] HEMATOLOGY Plt Morph Normal 11/13 Normal [facility] (11/13/2012 05:00:00) Medical Center HEMATOLOGY Atypical 0.0 <=0.0 11/13 Normal [place] Lymphs /2012 [facility] HEMATOLOGY RBC Morph Normal 11/13 Normal [facility] (11/13/2012 05:00:00) [facility] Center HEMATOLOGY Eosinophils 2.0 0.0 - 4.0 11/13 Normal [facility] HEMATOLOGY Bands 0.0 0.0 - 11.0 11/13 Normal [facility] HEMATOLOGY Segs 51.0 45.0 - 11/13 Normal [place] 75.0 [facility] HEMATOLOGY Eosinophils # 0.1 0.0 - 0.5 11/13 Normal [facility] HEMATOLOGY Segs-Bands # 3.5 1.5 - 8.1 11/13 Normal [facility] HEMATOLOGY Monocytes 5.0 2.0 - 12.0 11/13 Normal [facility] HEMATOLOGY Lymphocytes 42.0 20.0 - 11/13 HI [facility] 40.0 /2012 [facility] HEMATOLOGY Monocytes # 0.3 0.0 - 0.8 11/13 Normal [facility] HEMATOLOGY Lymphocytes # 2.9 1.0 - 5.5 11/13 Normal [facility] INFECTIOUS C difficile Negative 1 Negative 11/13 Normal <sup>1</sup>I [facility] DISEASES DNA (11/12/2012 21:54:26) /2012 nterpretive Medical Data: [place] [employer] Clostridium difficile assay utilizes loop-mediated isothermal [...] CK 25 12 - 191 11/12 Normal [facility] CHEMISTRY Troponin-I <0.02 0.00 - 11/12 Normal [facility] 0.40 /2012 [facility] CHEMISTRY eGFR 88 11/12 NA <sup>8</sup>R [facility] esult Medical Comment: The Center eGFR [...] 10.0 - 03 Normal [place] 20.0 /2012 [facility] CHEMISTRY Calcium Lvl 8.5 8.5 - 10.5 11/12 Normal [facility] CHEMISTRY CO2 25 24 - 32 11/12 Normal [facility] CHEMISTRY Potassium Lvl 3.7 3.5 - 5.1 11/12 Normal [facility] CHEMISTRY Sodium Lvl 138 135 - 145 11/12 Normal [facility] CHEMISTRY Chloride Lvl 103 95 - 109 11/12 Normal [facility] CHEMISTRY Creatinine 0.8 0.5 - 1.4 11/12 Normal [facility] Lvl /2012 [facility] CHEMISTRY BUN 5 7 - 22 11/12 LOW [facility] CHEMISTRY Glucose Lvl 40 70 - 99 11/12 CRIT <sup>11</sup> Result Medical Comment: Center rechecked Critical Result(s) called to _Leo Rose at 11/12/2012 02:56:37 [employer] by_mgm. Read back OK.
<sup> 12</sup>Inter pretive Data: Adult reference range values reflect the clinical guidelines
of the [place] [employer]. CHEMISTRY Ca Norm mgdL 4.20 4.65 - 03 LOW [place] 5. [facility] CHEMISTRY Ca Norm 1.05 1.16 - 11/12 [facility] [place] 1.30 [facility] CHEMISTRY Ca Ion mgdL 4.00 4.65 - 0309 LOW [place] 5.20 [facility] CHEMISTRY Ca Ion 1.00 1.16 - 0309 LOW [place] 1.30 [facility] Center CHEMISTRY Magnesium Lvl 1.9 1.8 - 2.4 11/12 Normal [facility] Center CHEMISTRY Phosphorus 3.2 2.5 - 4.5 11/12 Normal [facility] HEMATOLOGY MCHC 32.0 32.0 - 03 Normal [place] 36.0 /2013 [facility] HEMATOLOGY MCH 24.1 27.0 - 0309 LOW [place] 31.0 /2012 [facility] Center HEMATOLOGY MCV 75.3 81.0 - 0309 LOW [facility] [place] 99.0 /2013 [facility] HEMATOLOGY WBC 9.2 3.7 - 10.4 03 Normal [facility] HEMATOLOGY Platelet 233 133 - 450 03 Normal [facility] HEMATOLOGY MPV 9.1 7.4 - 10.4 11/12 Normal [facility] HEMATOLOGY RDW 19.0 11.5 - 03/ HI [place] 14.5 /2012 Medical [place] HEMATOLOGY RBC 4.19 4.20 - 03 [facility] [place] 5.40 /2012 [facility] HEMATOLOGY Hgb 10.1 12.0 - 03 [facility] 16.0 /2012 [facility] HEMATOLOGY Hct 31.6 36.0 - 03 [facility] 48.0 /2012 [facility] HEMATOLOGY Hypochrom Slight None Seen 11/12 [facility] (11/12/2012 00:19:00) [facility] HEMATOLOGY Large Plt Slight None Seen 11/12 [facility] *ABN* /2012 Medical (11/12/2012 00:19:00) [place] HEMATOLOGY Atypical 0.0 <=0.0 11/12 Normal [facility] Lymphs [facility] HEMATOLOGY Basophils 1.0 0.0 - 1.0 11/12 Normal [facility] HEMATOLOGY Lymphocytes 39.0 20.0 - 03 [facility] 40.0 [facility] HEMATOLOGY Bands 0.0 0.0 - 11.0 11/12 Normal [facility] HEMATOLOGY Eosinophils 2.0 0.0 - 4.0 11/12 Normal [facility] HEMATOLOGY Monocytes 6.0 2.0 - 12.0 11/12 Normal [facility] HEMATOLOGY Segs 52.0 45.0 - 03 [facility] 75.0 /2012 [facility] HEMATOLOGY Basophils # 0.1 0.0 - 0.2 11/12 Normal [facility] HEMATOLOGY Monocytes # 0.6 0.0 - 0.8 03 Normal [facility] HEMATOLOGY Lymphocytes # 3.6 1.0 - 5.5 11/12 Normal [facility] HEMATOLOGY Segs-Bands # 4.8 1.5 - 8.1 11/12 Normal [facility] HEMATOLOGY Eosinophils # 0.2 0.0 - 0.5 11/12 Normal [facility] HEMATOLOGY Microcyte 1+ None Seen 11/11 [facility] Medical (11/11/2012 03:41:00) Center HEMATOLOGY Basophils # 0.1 0.0 - 0.2 11/11 Normal [facility] HEMATOLOGY Basophils 0.7 0.0 - 1.0 11/11 Normal [facility] HEMATOLOGY Microcyte 1+ None Seen 11/09 [facility] Medical (11/09/2012 05:12:00) Center URINALYSIS UA pH 5.0 5.0 - 8.0 11/08 Normal [facility] URINALYSIS UA Protein 20 mg/dL Negative 11/08 [facility] Medical (11/07/2012 20:54:00) Center URINALYSIS UA Turbidity Slight Clear 11/08 [facility] Medical (11/07/2012 20:54:00) Center URINALYSIS UA Spec Grav 1.010 <=1.030 11/08 Normal [facility] URINALYSIS UA Color Yellow Yellow 11/08 NA [facility] (11/07/2012 20:54:00) Center URINALYSIS UA Bacteria Moderate /HPF None Seen 11/08 [facility] Medical (11/07/2012 20:54:00) Center URINALYSIS UA Mucus Few /LPF None Seen 11/08 [facility] Medical (11/07/2012 20:54:00) Center URINALYSIS UA WBC >182 0 - 5 11/08 [facility] URINALYSIS UA RBC 4 0 - 2 11/08 [facility] URINALYSIS UA Sq Epi Moderate /LPF Few 11/08 [facility] Medical (11/07/2012 20:54:00) Center URINALYSIS UA Leuk Est Large Negative 11/08 [facility] Medical (11/07/2012 20:54:00) Center URINALYSIS UA Blood Trace Negative 11/08 [facility] Medical (11/07/2012 20:54:00) Center URINALYSIS UA Nitrite Negative Negative 11/08 Normal [facility] (11/07/2012 20:54:00) [facility] URINALYSIS UA Ketones 40 mg/dL Negative 11/08 [facility] *ABN* Medical (11/07/2012 20:54:00) Center [facility]IS [facility] Bili Negative [facility]:54[facility] UR[facility]YSIS Micro? Performed [facility]11/07/2012 20:54:00) Center URINALYSIS UA 0.1 - 1.0 11/08 [facility] Urobilinogen /2012 [facility] URINALYSIS UA Glucose >=1000mg/d 11/08 [facility] L [facility] URINALYSIS UA Hyal Cast 37 0 - 2 11/08 [facility] URINALYSIS UA Ketones 40 mg/dL Negative 11/07 [facility] Medical (11/07/2012 06:24:57) Center CHEMISTRY Hgb A1C [...] to lower CHEMISTRY Ketone 2.20 <=0.27 11/[address] [facility] CHEMISTRY U Osmolality 207 300 - 800 11/06 LOW [facility] CHEMISTRY POC A %FIO2 21.0 18.0 - 11/06 Normal [facility] 100. [facility] CHEMISTRY POC A LA 0.9 0.5 - 2.2 11/06 Normal [facility] CHEMISTRY POC A Glu 281 70 - 99 11/06 [facility] CHEMISTRY POC A Temp 37.0 11/06 NA [facility] CHEMISTRY POC A Source ART 11/06 NA [facility] CHEMISTRY POC A pH 7.45 7.35 - 11/06 Normal [place] 7.45 /2012 Medical [place] CHEMISTRY POC A HCO3 24 22 - 26 03 Normal Medical [place] CHEMISTRY POC A PCO2 35 35 - 45 03 Normal [facility] CHEMISTRY POC A PO2 85 80 - 100 11/06 Normal [facility] CHEMISTRY POC A BE 0 -2-2 - 2 11/06 Normal [facility] CHEMISTRY POC A O2 Sat 97.0 95.0 - 11/06 Normal [place] 100.0 Medical Center CHEMISTRY POC A Na 123 135 - 145 03 LOW [facility] CHEMISTRY POC A Hct 31.0 36.0 - 11/06 LOW [place] 48.0 [facility] CHEMISTRY POC A Ca Ion 1.11 1.16 - 11/06 LOW [facility] 1.30 [facility] CHEMISTRY POC A K 3.7 3.5 - 5.1 11/06 Normal [facility] CHEMISTRY POC A BE -4 -2-2 - 2 11/06 LOW [facility] CHEMISTRY POC A HCO3 20 22 - 26 11/06 LOW [facility] CHEMISTRY POC A Source ART 11/06 NA [facility] CHEMISTRY POC A Temp 37.0 11/06 NA [facility] CHEMISTRY POC A pH 7.42 7.35 - 11/06 Normal [facility] 7.45 [facility] CHEMISTRY POC A PO2 81 80 - 100 11/06 Normal [facility] CHEMISTRY POC A O2 Sat 96.0 95.0 - 11/06 Normal 100.0 [facility] CHEMISTRY POC A PCO2 31 35 - 45 11/06 LOW [facility] CHEMISTRY POC A %FIO2 21.0 18.0 - 11/06 Normal [facility] 100.0 /2012 [facility] Microbiolog Culture: 11/06 [facility] y Urine /2012 [facility] CHEMISTRY Troponin-I <0.02 0.00 - 03 Normal [facility] 0.40 /2012 [facility] CHEMISTRY Troponin-T <0.010 0.000 - 03 Normal [facility] 0.100 [facility] CHEMISTRY Total CK 48 12 - 191 11/06 Normal [facility] URINALYSIS UA 0.1 - 1.0 11/06 NA [facility] Urobilinogen /2012 [facility] URINALYSIS UA Leuk Est Large Negative 11/06 ABN [facility] * Medical (11/06/2012 03:15:40) Center URINALYSIS UA Sq Epi Moderate /LPF Few 11/06 [facility] Medical (11/06/2012 03:15:40) Center URINALYSIS UA Mucus Few /LPF None Seen 11/06 NA [facility] Medical (11/06/2012 03:15:40) Center URINALYSIS UA Nitrite Negative Negative 11/06 Normal [facility] (11/06/2012 03:15:40) Medical Center URINALYSIS UA Bacteria Occasional /HPF None Seen 11/06 [facility] (11/06/2012 03:15:40) Center URINALYSIS UA WBC 67 0 - 5 11/06 [facility] Medical Center URINALYSIS UA Blood Negative Negative 11/06 Normal [facility] (11/06/2012 03:15:40) Medical Center URINALYSIS UA Bili Negative Negative 11/06 [facility] Medical (11/06/2012 03:15:40) Center URINALYSIS UA Ketones 60 mg/dL Negative 11/06 [facility] Medical (11/06/2012 03:15:40) Center URINALYSIS UA pH 5.0 5.0 - 8.0 11/06 Normal Medical [facility] URINALYSIS UA Glucose >=1000 mg/dL Negative 11/06 [facility] Medical (11/06/2012 03:15:40) Center URINALYSIS UA Spec Grav 1.014 <=1.030 11/06 Normal Medical Center URINALYSIS UA Protein Negative mg/dL Negative 11/06 Normal [facility] (11/06/2012 03:15:40) Medical Center URINALYSIS UA Turbidity Slight Clear 11/06 [facility] Medical (11/06/2012 03:15:40) Center URINALYSIS UA Color Yellow Yellow 11/06 NA [facility] Medical (11/06/2012 03:15:40) Center CHEMISTRY Troponin-I 0.02 0.00 - 11/06 Normal [facility] 0.40 Medical Center CHEMISTRY Total CK 30 12 - 191 11/06 Normal Medical Center CHEMISTRY Troponin-T <0.010 0.000 - 11/06 Normal [facility] 0.100 /2012 Medical [place] CHEMISTRY Ketone 3.00 <=0.27 11/06 HI [facility] Medical [place] CHEMISTRY Lipase Lvl 89 73 - 393 11/06 Normal [facility] CHEMISTRY Globulin 4.3 2.0 - 4.0 11/06 [facility] CHEMISTRY A/G Ratio 0.9 0.7 - 1.6 11/06 Normal [facility] CHEMISTRY B/C Ratio 7 6 - 25 11/06 Normal [facility] CHEMISTRY Albumin Lvl 3.7 3.5 - 5.0 11/06 Normal [facility] CHEMISTRY Total Protein 8.0 6.4 - 8.4 11/06 Normal [facility] CHEMISTRY ALT 62 0 - 65 11/06 Normal [facility] CHEMISTRY Alk Phos 119 39 - 136 11/06 Normal [facility] CHEMISTRY Bili Total 0.5 0.2 - 1.3 11/06 Normal [facility] CHEMISTRY AST 44 0 - 37 11/06 [facility] HEMATOLOGY Polychrom Slight None Seen 11/06 Normal [facility] (11/05/2012 20:40:00) Medical Center HEMATOLOGY Hypochrom Slight None Seen 11/06 Normal [facility] (11/05/2012 20:40:00) [facility] HEMATOLOGY Bands 1.0 0.0 - 11.0 11/06 Normal [facility] HEMATOLOGY Anisocyte 1+ None Seen 11/06 [facility] *ABN* Medical (11/05/2012 20:40:00) Center HEMATOLOGY Atypical 0.0 <=0.0 11/06 Normal [facility] Lymphs [facility] HEMATOLOGY Macrocyte 1+ None Seen 11/06 [facility] *ABN* Medical (11/05/2012 20:40:00) Center HEMATOLOGY Plt Morph Normal 11/06 Normal [facility] (11/05/2012 20:40:00) [facility] HEMATOLOGY INR 0.98 0.85 - 11/06 Normal <sup>16</sup> [facility] 1. Interpretive Medical Data: Center RECOMMENDED RANGES FOR PROTIME INR:
2.0-3.0 for most medical and surgical thromboemboli c states.
2.5-3.5 for artificial heart valves and recurrent embolism.<br/ >
INR SHOULD BE USED ONLY FOR PATIENTS ON STABLE ANTICOAGULANT THERAPY. HEMATOLOGY PT 13.2 12.0 - 03 Normal [facility] 14.7 /2012 Medical Center HEMATOLOGY PTT 26.4 22.9 - 03 Normal <sup>17</sup> [facility] 35.8 /2012 Interpretive Medical Data: Heparin Center Therapeutic Range: 57 - 92 Seconds BEDSIDE Gluc POC >400 70 - 99 11/01 CRIT <sup>3</sup>I [facility] nterpretive Medical TESTING Data: Center Upper Reportable Limit: 200 mg/dL. BEDSIDE Comment1 Notify 11/01 NA [facility] GLUCOSE MARTÍNEZ/ /2012 Medical TESTING Center BEDSIDE Gluc POC 237 70 - 99 10/31 HI <sup>4</sup>I [facility] nterpretive Medical TESTING Data: Center Upper Reportable Limit: 200 mg/dL. BEDSIDE Gluc POC 357 70 - 99 10/31 HI <sup>5</sup>I [facility] nterpretive Medical TESTING Data: Center Upper Reportable Limit: 200 mg/dL. BEDSIDE Comment1 Notify 10/31 NA [facility] GLUCOSE RN/ /2012 Medical TESTING Center CHEMISTRY Phosphorus 4.2 2.5 - 4.5 10/31 Normal [facility] CHEMISTRY Ca Norm mgdL 4.64 4.65 - 10/31 [facility] 5.20 [facility] CHEMISTRY Ca Ion mgdL 4.44 4.65 - 10/31 [facility] 5.20 [facility] CHEMISTRY Ca Norm 1.16 1.16 - 10/31 Normal [facility] 1.30 [facility] CHEMISTRY Ca Ion 1.11 1.16 - 10/31 LOW [facility] 1.30 [facility] CHEMISTRY AGAP 16.9 10.0 - 10/31 Normal [facility] 20.0 [facility] CHEMISTRY eGFR 67 10/31 [...] 1.0 0.5 - 1.4 10/31 Normal [place] [facility] CHEMISTRY Sodium Lvl 133 135 - 145 10/31 [facility] CHEMISTRY Calcium Lvl 8.3 8.5 - 10.5 10/31 [facility] CHEMISTRY Potassium Lvl 3.9 3.5 - 5.1 10/31 Normal [facility] CHEMISTRY Chloride Lvl 94 95 - 109 10/31 [facility] CHEMISTRY CO2 26 24 - 32 10/31 [facility] CHEMISTRY BUN 8 7 - 22 10/31 [facility] CHEMISTRY Glucose Lvl 75 70 - 99 10/31 Normal <sup>10</sup> Interpretive Medical Data: Adult Center reference range values reflect the clinical guidelines
of the [place] [employer]. CHEMISTRY Magnesium Lvl 1.9 1.8 - 2.4 10/31 [facility] HEMATOLOGY MPV 9.4 7.4 - 10.4 10/31 [facility] HEMATOLOGY Hgb 9.7 12.0 - 10/31 [facility] [place] 16.0 [facility] HEMATOLOGY RBC 4.06 4.20 - 10/31 [facility] [place] 5.40 [facility] HEMATOLOGY MCV 74.3 81.0 - 10/31 [facility] 99.0 [facility] HEMATOLOGY Hct 30.2 36.0 - 10/31 [facility] [place] 48.0 [facility] HEMATOLOGY MCHC 32.2 32.0 - 10/31 [facility] [place] 36.0 [facility] HEMATOLOGY MCH 23.9 27.0 - 10/31 LOW [place] 31.0 /2012 [facility] HEMATOLOGY Platelet 199 133 - 450 10/31 Normal [facility] HEMATOLOGY RDW 17.5 11.5 - 10/31 HI [facility] 14.5 [facility] HEMATOLOGY WBC 9.4 3.7 - 10.4 10/31 Normal [facility] HEMATOLOGY Lymphocytes # 2.7 1.0 - 5.5 10/31 Normal [facility] HEMATOLOGY Basophils 0.6 0.0 - 1.0 10/31 Normal [facility] HEMATOLOGY Segs-Bands # 5.2 1.5 - 8.1 10/31 Normal [facility] HEMATOLOGY Microcyte 1+ None Seen 10/31 ABN *ABN* /2012 [facility] (10/31/2012 04:00:00) [place] HEMATOLOGY Monocytes # 1.1 0.0 - 0.8 10/31 [facility] HEMATOLOGY Eosinophils # 0.3 0.0 - 0.5 10/31 Normal [facility] HEMATOLOGY Basophils # 0.1 0.0 - 0.2 10/31 Normal [facility] HEMATOLOGY Segs 55.2 45.0 - 10/31 Normal [facility] 75.0 [facility] HEMATOLOGY Monocytes 11.8 2.0 - 12.0 10/31 Normal [facility] HEMATOLOGY Lymphocytes 28.9 20.0 - 10/31 Normal [facility] 40.0 [facility] HEMATOLOGY Eosinophils 3.5 0.0 - 4.0 10/31 Normal [facility] BEDSIDE Comment1 Notify 10/31 NA [facility] GLUCOSE RN/ Medical TESTING Center CHEMISTRY Ca Norm mgdL 4.92 4.65 - 10/30 Normal [facility] 5. [facility] CHEMISTRY Ca Ion mgdL 4.76 4.65 - 10/30 Normal [facility] 5 [facility] CHEMISTRY Ca Norm 1.23 1.16 - 10/30 Normal [facility] 10.05 [facility] CHEMISTRY Ca Ion 1.19 1.16 - 10/30 Normal [facility] 10.05 [facility] CHEMISTRY Phosphorus 3.8 2.5 - 4.5 10/30 Normal [facility] CHEMISTRY Magnesium Lvl 1.9 1.8 - 2.4 10/30 Normal [facility] CHEMISTRY eGFR 88 10/30 NA <sup>8</sup>R [...] clinical guidelines
of the [place] [employer]. CHEMISTRY Creatinine 0.8 0.5 - 1.4 10/30 Normal [facility] CHEMISTRY BUN 6 7 - 22 10/30 [facility] CHEMISTRY Sodium Lvl 132 135 - 145 10/30 [facility] CHEMISTRY Calcium Lvl 8.5 8.5 - 10.5 10/30 [facility] CHEMISTRY CO2 29 24 - 32 10/30 Normal [facility] CHEMISTRY Chloride Lvl 92 95 - 109 10/30 [facility] CHEMISTRY Potassium Lvl 3.8 3.5 - 5.1 10/30 Normal [facility] CHEMISTRY AGAP 14.8 10.0 - 10/30 [facility] 20. [facility] HEMATOLOGY Platelet 245 133 - 450 10/30 Normal [facility] HEMATOLOGY MPV 9.4 7.4 - 10.4 10/30 [facility] HEMATOLOGY Hct 33.1 36.0 - 10/30 [facility] 48.0 [facility] HEMATOLOGY RBC 4.47 4.20 - 02 Normal [place] 5.40 /2012 [facility] HEMATOLOGY WBC 11.0 3.7 - 10.4 10/30 [facility] HEMATOLOGY Hgb 10.6 12.0 - 10/30 [facility] [place] 16.0 /2012 [facility] HEMATOLOGY MCHC 31.9 32.0 - 02 [facility] [place] 36.0 /2012 [facility] HEMATOLOGY MCV 74.1 81.0 - 10/30 [facility] [place] 99.0 /2012 [facility] HEMATOLOGY MCH 23.7 27.0 - 02 [facility] [place] 31.0 /2012 [facility] HEMATOLOGY RDW 16.9 11.5 - [address] [facility] 14.5 /2012 [facility] HEMATOLOGY PTT 28.1 22.9 - 10/30 Normal <sup>25</sup> [facility] 35.8 /2012 Interpretive Medical Data: [facility] Therapeutic Range: 57 - 92 Seconds HEMATOLOGY PT 13.7 12.0 - 10/30 Normal [facility] 14.7 /2012 [facility] HEMATOLOGY INR 1.03 0.85 - 10/30 Normal <sup>22</sup> [facility] 1.17 /2012 Interpretive Medical Data: Center RECOMMENDED RANGES FOR PROTIME INR:
2.0-3.0 for most medical and surgical thromboemboli c states.
2.5-3.5 for artificial heart valves and recurrent embolism.<br/ >
INR SHOULD BE USED ONLY FOR PATIENTS ON STABLE ANTICOAGULANT THERAPY. HEMATOLOGY Segs-Bands # 7.5 1.5 - 8.1 10/30 [facility] HEMATOLOGY Basophils 0.4 0.0 - 1.0 10/30 [facility] HEMATOLOGY Monocytes # 1.1 0.0 - 0.8 10/30 [facility] HEMATOLOGY Lymphocytes # 2.1 1.0 - 5.5 10/30 [facility] HEMATOLOGY Microcyte 1+ None Seen 10/30 [facility] [place] *ABN* /2012 [facility] (10/30/2012 00:20:00) [place] HEMATOLOGY Eosinophils # 0.2 0.0 - 0.5 10/30 Normal [facility] HEMATOLOGY Segs 68.3 45.0 - 10/30 [facility] [place] 75.0 /2012 [facility] HEMATOLOGY Lymphocytes 18.9 20.0 - 10/30 [facility] 40.0 [facility] HEMATOLOGY Monocytes 10.3 2.0 - 12.0 10/30 Normal [facility] HEMATOLOGY Eosinophils 2.1 0.0 - 4.0 10/30 Normal [facility] CHEMISTRY Magnesium Lvl 2.1 1.8 - 2.4 10/29 Normal [facility] CHEMISTRY Phosphorus 4.1 2.5 - 4.5 10/29 Normal [facility] CHEMISTRY Ca Ion mgdL 3.96 4.65 - 10/29 [facility] 5. [facility] CHEMISTRY Ca Norm 1.01 1.16 - 10/29 [facility] 1. [facility] CHEMISTRY Ca Ion 0.99 1.16 - 10/29 [facility] 1. [facility] CHEMISTRY Ca Norm mgdL 4.04 4.65 - 10/29 [facility] . [facility] CHEMISTRY eGFR 104 10/29 NA <sup>9</sup>R [...] Creatinine 0.7 0.5 - 1.4 10/29 Normal [facility] CHEMISTRY BUN 3 7 - 22 10/29 LOW [facility] CHEMISTRY Calcium Lvl 8.9 8.5 - 10.5 10/29 Normal [facility] CHEMISTRY Glucose Lvl 90 70 - 99 10/29 Normal <sup>12</sup> Interpretive Medical Data: Adult Center reference range values reflect the clinical guidelines
of the [place] [employer]. CHEMISTRY Chloride Lvl 99 95 - 109 10/29 Normal [facility] CHEMISTRY Potassium Lvl 4.4 3.5 - 5.1 10/29 Normal /2012 [facility] CHEMISTRY CO2 27 24 - 32 10/29 Normal [facility] CHEMISTRY Sodium Lvl 139 135 - 145 10/29 Normal [facility] CHEMISTRY AGAP 17.4 10.0 - 10/29 Normal [facility] 20.0 /2012 [facility] HEMATOLOGY PTT 23.7 22.9 - 10/29 Normal <sup>26</sup> [facility] 35.8 /2012 Interpretive Medical Data: Heparin Center Therapeutic Range: 57 - 92 Seconds HEMATOLOGY PT 13.4 12.0 - 10/29 Normal [facility] 14.7 /2012 [facility] HEMATOLOGY INR 1.00 0.85 - 10/29 Normal <sup>23</sup> [facility] 1.17 Interpretive Medical Data: Center RECOMMENDED RANGES FOR PROTIME INR:
2.0-3.0 for most medical and surgical thromboemboli c states.
2.5-3.5 for artificial heart valves and recurrent embolism.<br/ >
INR SHOULD BE USED ONLY FOR PATIENTS ON STABLE ANTICOAGULANT THERAPY. HEMATOLOGY RDW 17.1 11.5 - 10/29 [facility] [place] 14.5 /2012 [facility] HEMATOLOGY MCH 23.8 27.0 - 10/29 LOW [facility] 31.0 /2012 [facility] HEMATOLOGY MCHC 32.2 32.0 - 10/29 Normal [place] 36.0 /2012 [facility] HEMATOLOGY Hct 33.6 36.0 - 10/29 [facility] 48.0 /2012 [facility] HEMATOLOGY MCV 74.0 81.0 - 10/29 LOW [facility] 99.0 /2012 [facility] HEMATOLOGY Platelet 233 133 - 450 10/29 Normal [facility] HEMATOLOGY MPV 9.9 7.4 - 10.4 10/29 Normal /2012 [facility] HEMATOLOGY RBC 4.54 4.20 - 10/29 Normal [facility] 5.40 /2012 [facility] HEMATOLOGY Hgb 10.8 12.0 - 10/29 [facility] [place] 16.0 /2012 [facility] HEMATOLOGY WBC 9.7 3.7 - 10.4 10/29 Normal [facility] HEMATOLOGY Lymphocytes # 2.6 1.0 - 5.5 10/29 Normal [facility] HEMATOLOGY Basophils 0.7 0.0 - 1.0 10/29 Normal [facility] HEMATOLOGY Segs-Bands # 6.0 1.5 - 8.1 10/29 Normal [facility] HEMATOLOGY Monocytes # 0.7 0.0 - 0.8 10/29 Normal [facility] HEMATOLOGY Eosinophils # 0.3 0.0 - 0.5 10/29 Normal [facility] HEMATOLOGY Basophils # 0.1 0.0 - 0.2 10/29 Normal [facility] HEMATOLOGY Microcyte 1+ None Seen 10/29 [facility] [place] *ABN* /2012 Medical (10/29/2012 00:56:00) [place] HEMATOLOGY Segs 61.5 45.0 - 10/29 Normal [facility] 75.0 [facility] HEMATOLOGY Lymphocytes 26.8 20.0 - 10/29 Normal [facility] 40.0 [facility] HEMATOLOGY Monocytes 7.6 2.0 - 12.0 10/29 Normal [facility] HEMATOLOGY Eosinophils 3.4 0.0 - 4.0 10/29 Normal [facility] CHEMISTRY Amylase Lvl 27 25 - 115 10/28 Normal [facility] CHEMISTRY Lipase Lvl 58 73 - 393 10/28 [facility] CHEMISTRY Bili Indirect 0.2 0.0 - 1.0 10/28 Normal [facility] CHEMISTRY Globulin 3.4 2.0 - 4.0 10/28 Normal [facility] CHEMISTRY A/G Ratio 0.8 0.7 - 1.6 10/28 Normal [facility] CHEMISTRY AST 24 0 - 37 10/28 Normal [facility] CHEMISTRY Bili Total 0.3 0.2 - 1.3 10/28 Normal [facility] CHEMISTRY Total Protein 6.2 6.4 - 8.4 10/28 [facility] CHEMISTRY ALT 23 0 - 65 10/28 Normal [facility] CHEMISTRY Albumin Lvl 2.8 3.5 - 5.0 10/28 LOW [facility] CHEMISTRY Alk Phos 85 39 - 136 10/28 Normal [facility] CHEMISTRY Bili Direct 0.1 0.0 - 0.3 10/28 Normal [facility] HEMATOLOGY PTT 23.9 22.9 - 10/28 Normal <sup>27</sup> [facility] 35.8 /2012 Interpretive Medical Data: Heparin Center Therapeutic Range: 57 - 92 Seconds HEMATOLOGY PT 13.5 12.0 - 10/28 Normal [facility] 14.7 /2012 Medical Center HEMATOLOGY INR 1.01 0.85 - 10/28 Normal <sup>24</sup> [facility] 1.17 /2012 Interpretive Medical Data: Center RECOMMENDED RANGES FOR PROTIME INR:
2.0-3.0 for most medical and surgical thromboemboli c states.
2.5-3.5 for artificial heart valves and recurrent embolism.<br/ >
INR SHOULD BE USED ONLY FOR PATIENTS ON STABLE ANTICOAGULANT THERAPY. VIRAL - Influ B Negative 6 Negative 10/28 Normal <sup>6</sup>I [facility] SEROLOGY (10/27/2012 18:02:02) nterpretive Medical Data: [...] - Influ A Negative Negative 10/28 Normal [facility] SEROLOGY (10/27/2012 18:02:02) [facility] Center CHEMISTRY Vitamin D, 16 30 - 100 10/25 LOW <sup>13</sup> [facility] 25-OH, Interpretive Medical Data: Center Reference range is based on recommendatio ns in the Endocrine<br/ >Society Clinical Practice Guideline (J Clin Endocrinol Metab
201 1;[id number]) CHEMISTRY Hgb A1C 8.4 10/25 NA <sup>21</sup> [facility] Interpretive Medical Data: HbA1C% Center eAG(mg/dL) [...] LDL 87 0 - 129 10/25 Normal [facility] CHEMISTRY HDL 35 >=35 10/25 Normal [facility] CHEMISTRY Trig 101 0 - 200 10/25 Normal [facility] CHEMISTRY Chol 142 120 - 200 10/25 Normal [facility] CHEMISTRY CHD Risk 4.06 3.90 - 10/25 Normal [facility] 5.80 /2012 [facility] CHEMISTRY Troponin-I 5.43 0.00 - 10/25 CRIT <sup>18</sup> [facility] 0.40 Result Medical Comment: Center Critical Result(s) called to Jelani Rasmussen at 10/25/2012 00:47:48 TRAFFIC CONTROL SIGNALER by . Read back OK. CHEMISTRY Troponin-T 0.693 0.000 - 10/25 CRIT <sup>15</sup> [facility] 0.100 Result Medical Comment: Center Critical Result(s) called to daisy tooole at 10/25/2012 01:18:09 TRAFFIC CONTROL SIGNALER by tac. Read back OK. HEMATOLOGY Basophils # 0.2 0.0 - 0.2 10/25 Normal [facility] HEMATOLOGY Plt Morph Normal 10/25 Normal [facility] (10/25/2012 00:15:00) [facility] CHEMISTRY ALT 15 0 - 65 10/24 Normal [facility] CHEMISTRY Albumin Lvl 2.7 3.5 - 5.0 10/24 LOW [facility] CHEMISTRY Bili Total 0.5 0.2 - 1.3 10/24 Normal [facility] CHEMISTRY Alk Phos 83 39 - 136 10/24 Normal [facility] CHEMISTRY Bili Direct 0.2 0.0 - 0.3 10/24 Normal [facility] CHEMISTRY Total Protein 5.8 6.4 - 8.4 10/24 LOW [facility] CHEMISTRY AST 41 0 - 37 10/24 HI [facility] CHEMISTRY Bili Indirect 0.3 0.0 - 1.0 10/24 Normal [facility] CHEMISTRY Globulin 3.1 2.0 - 4.0 10/24 Normal [facility] CHEMISTRY A/G Ratio 0.9 0.7 - 1.6 10/24 Normal [facility] CHEMISTRY POC A Mode NC-3LPM 10/24 NA [facility] CHEMISTRY POC A HCO3 19 22 - 26 10/24 LOW [facility] CHEMISTRY POC A O2 Sat 98.0 95.0 - 10/24 Normal [place] 100.0 [facility] CHEMISTRY POC A BE -6 -2-2 - 2 10/24 LOW [facility] CHEMISTRY POC A PO2 103 80 - 100 10/24 HI [facility] CHEMISTRY POC A pH 7.35 7.35 - 10/24 LOW [facility] 7.45 [facility] CHEMISTRY POC A PCO2 34 35 - 45 10/24 LOW [facility] CHEMISTRY POC A Temp 37.0 10/24 NA [facility] CHEMISTRY POC A Source ART 10/24 NA [facility] CHEMISTRY Troponin-T 0.688 0.000 - 10/24 CRIT <sup>16</sup> [facility] 0.100 Result Medical Comment: Center Critical Result(s) called to Maribel Bustos at 10/24/2012 13:23:46 TRAFFIC CONTROL SIGNALER by lwb . Read back OK. CHEMISTRY Troponin-I 7.61 0.00 - 10/24 CRIT <sup>19</sup> [facility] 0.40 /2012 Result Medical Comment: Center Critical Result(s) called to mariana bustos at 10/24/2012 13:37:22 CSTby_lss. Read back OK. CHEMISTRY Total CK 150 12 - 191 10/24 Normal [facility] CHEMISTRY Lactic Acid 0.7 0.5 - 2.2 10/24 Normal [facility] Lvl [facility] CHEMISTRY CK MB Index 11.0 0.0 - 2.5 10/24 HI [facility] CHEMISTRY CK MB 16.5 0.5 - 3.6 10/24 HI [facility] CHEMISTRY Troponin-T 0.750 0.000 - 10/24 CRIT <sup>17</sup> [facility] 0.100 Result Medical Comment: Center Critical Result(s) called to Lyn King at 10/24/2012 09:52:38 TRAFFIC CONTROL SIGNALER by lwb . Read back OK. CHEMISTRY Troponin-I 7.60 0.00 - 10/24 CRIT <sup>20</sup> [facility] 0.40 /2012 Result Medical Comment: Center Critical Result(s) called to romero beltre at _10/24/2012 09:50:18 TRAFFIC CONTROL SIGNALER by_lss. Read back OK. CHEMISTRY Total CK 170 12 - 191 10/24 Normal <sup>14</sup> Result Medical Comment: Center Specimen Moderately Hemolyzed. CHEMISTRY CK MB Index 10.5 0.0 - 2.5 10/24 HI [facility] CHEMISTRY CK MB 17.8 0.5 - 3.6 10/24 HI [facility] CHEMISTRY Ketone 0.07 <=0.27 10/24 Normal [facility] CHEMISTRY Ketone 2.61 <=0.27 10/24 HI Quantitative [facility] CHEMISTRY CK MB 30.9 0.5 - 3.6 10/24 HI [facility] CHEMISTRY CK MB Index 12.2 0.0 - 2.5 10/24 HI [facility] CHEMISTRY Total CK 254 12 - 191 10/24 HI [facility] CHEMISTRY Lactic Acid 0.6 0.5 - 2.2 10/24 Normal Lvl [facility] CHEMISTRY POC V O2 Sat 56.0 40.0 - 10/24 Normal [place] 70.0 [facility] CHEMISTRY POC V HCO3 22 22 - 26 10/24 Normal [facility] CHEMISTRY POC V PO2 32 20 - 49 10/24 Normal [facility] CHEMISTRY POC V BE -4 -2-2 - 2 10/24 LOW [facility] CHEMISTRY POC V PCO2 41 38 - 52 10/24 Normal [facility] CHEMISTRY POC V pH 7.33 7.28 - 10/24 Normal [place] 7.42 [facility] CHEMISTRY POC V Temp 37.0 10/24 NA [facility] Center CHEMISTRY POC V Source MARK 10/24 NA [facility] CHEMISTRY Ketone 0.93 <=0.27 10/24 HI [facility] Center Microbiolog Culture: 10/24 [facility] y [facility] Center CHEMISTRY Lactic Acid 0.6 0.5 - 2.2 10/23 Normal [place] Lvl /2012 Medical Center Microbiolog Culture: 10/23 [facility] y Blood Medical Center CHEMISTRY POC [...] PCO2 36 35 - 45 10/23 Normal [facility] Center CHEMISTRY POC A LA 0.6 0.5 - 2.2 10/23 Normal [facility] Center CHEMISTRY POC A Ca Ion 1.20 1.16 - 10/23 Normal [place] 1.30 Medical Center CHEMISTRY POC A Na 133 135 - 145 10/23 LOW [facility] CHEMISTRY POC A K 3.8 3.5 - 5.1 10/23 Normal [facility] CHEMISTRY A/G Ratio 0.8 0.7 - 1.6 10/23 Normal Medical [facility] CHEMISTRY AST 90 0 - 37 10/23 HI [facility] Center CHEMISTRY Globulin 3.9 2.0 - 4.0 10/23 Normal [facility] Center CHEMISTRY B/C Ratio 16 6 - 25 10/23 Normal [facility] CHEMISTRY Total Protein 7.2 6.4 - 8.4 10/23 Normal [facility] CHEMISTRY Bili Total 0.5 0.2 - 1.3 10/23 Normal [facility] CHEMISTRY Albumin Lvl 3.3 3.5 - 5.0 10/23 LOW [facility] CHEMISTRY Alk Phos 94 39 - 136 10/23 Normal Medical [facility] CHEMISTRY ALT 23 0 - 65 10/23 [facility] CHEMISTRY Osmolality 292 280 - 300 10/23 Normal [facility] CHEMISTRY Myoglobin 128 25 - 72 10/23 [facility] Microbiolog Culture: 10/23 [facility] y [facility] Center Screen BACTERIAL - MRSA by PCR Positive 1, 2 10/23 ABN <sup>1</sup>R [facility] SEROLOGY *ABN* /2012 esult Medical (10/23/2012 [...] CHEMISTRY Osmolality 309 280 - 300 10/23 [facility] CHEMISTRY POC A Hct 37.0 36.0 - 10/23 [facility] 48.0 [facility] CHEMISTRY POC A Na 129 135 - 145 10/23 LOW [facility] CHEMISTRY POC A LA 1.0 0.5 - 2.2 10/23 [facility] CHEMISTRY POC A K 4.5 3.5 - 5.1 10/23 [facility] CHEMISTRY POC A Glu >425 70 - 99 [facility] CHE[facility] POC A Ca Ion 1.18 1.16 - 10/23 [facility] 1.30 /2012 [facility] CHEMISTRY POC A PCO2 30 35 - 45 10/23 CRIT [facility] CHEMISTRY POC A PO2 123 80 - 100 10/23 [facility] CHEMISTRY POC A Temp 37.0 10/23 NA Medical Center CHEMISTRY POC A HCO3 14 22 - 26 10/23 LOW [facility] CHEMISTRY POC A Source ART 10/23 NA [facility] CHEMISTRY POC A pH 7.27 7.35 - 10/23 LOW [facility] 7.45 Medical Center CHEMISTRY POC A BE -12 -2-2 - 2 10/23 LOW Medical [facility] CHEMISTRY POC A O2 Sat 98.0 95.0 - 10/23 Normal [place] 100.0 [facility] Center CHEMISTRY Bili Direct 0.4 0.0 - 0.3 10/23 HI [facility] CHEMISTRY Lipase Lvl 54 73 - 393 10/23 LOW [facility] Center CHEMISTRY Amylase Lvl 28 25 - 115 10/23 Normal [facility] CHEMISTRY B/C Ratio 10 6 - 25 10/23 Normal [facility] BLOOD BANK Antibody Scrn Negative 10/23 Normal [facility] RESULTS (10/23/2012 01:00:00) Medical Center BLOOD BANK ABO/Rh A POS 10/23 Unknown [facility] RESULTS Medical Center URINALYSIS UA 0.1 - 1.0 10/23 NA [facility] Urobilinogen /2012 Medical Center URINALYSIS UA Sq Epi Moderate /LPF Few 10/23 ABN [facility] *ABN* /2012 Medical (10/23/2012 00:01:00) Center URINALYSIS UA Leuk Est Negative Negative 10/23 Normal [facility] (10/23/2012 00:01:00) Medical Center URINALYSIS UA Nitrite Negative Negative 10/23 Normal [facility] (10/23/2012 00:01:00) Medical Center URINALYSIS UA Blood Negative Negative 10/23 Normal [facility] (10/23/2012 00:01:00) Medical Center URINALYSIS UA Glucose >=1000 mg/dL Negative 10/23 ABN [facility] *ABN* Medical (10/23/2012 00:01:00) Center URINALYSIS UA Protein 10 mg/dL Negative 10/23 ABN [facility] *ABN* Medical (10/23/2012 00:01:00) Center URINALYSIS UA pH 5.0 5.0 - 8.0 10/23 Normal Medical Center URINALYSIS UA WBC 1 0 - 5 10/23 Normal [facility] Center URINALYSIS UA Bili Negative Negative 10/23 NA [facility] *NA* Medical (10/23/2012 00:01:00) Center URINALYSIS UA Ketones >=150 mg/dL Negative 10/23 ABN [facility] *ABN Medical (10/23/2012 00:01:00) Center URINALYSIS UA Spec Grav 1.015 <=1.030 10/23 Normal [facility] Center URINALYSIS UA Turbidity Clear Clear 10/23 Normal [facility] (10/23/2012 00:01:00) Medical Center URINALYSIS UA Color Light Yellow Yellow 10/23 NA [facility] *NA* Medical (10/23/2012 00:01:00) Center BEDSIDE Gluc POC 265 70 - 99 10/08 HI <sup>1</sup>I [facility] GLUCOSE [facility] nterpretive Medical TESTING Data: Center Upper Reportable Limit: 200 mg/dL. BEDSIDE Comment1 Notify 10/08 NA [facility] GLUCOSE RN/MD /2012 Medical TESTING Center BEDSIDE Comment1 Notify 10/08 NA [facility] GLUCOSE RN/MD /2012 Medical TESTING Center BEDSIDE Gluc POC 204 70 - 99 10/08 HI <sup>2</sup>I [facility] GLUCOSE [facility] nterpretive Medical TESTING Data: Center Upper Reportable Limit: 200 mg/dL. CHEMISTRY Phosphorus 2.7 2.5 - 4.5 10/08 Normal [facility] CHEMISTRY Magnesium Lvl 1.6 1.8 - 2.4 10/08 LOW [facility] CHEMISTRY Ca Ion 1.17 1.16 - 02 Normal [facility] 1. [facility] Center CHEMISTRY Ca Norm 1.18 1.16 - 10/08 Normal [facility] 1. [facility] CHEMISTRY Ca Ion mgdL 4.68 4.65 - 10/08 Normal [facility] 5. [facility] CHEMISTRY Ca Norm mgdL 4.72 4.65 - 10/08 Normal [facility] 5. [facility] CHEMISTRY AGAP 17.6 10.0 - 10/08 Normal [facility] 20.0 [facility] Center CHEMISTRY eGFR 109 10/08 [...] CO2 24 24 - 32 10/08 Normal [facility]2012 [facility] CHEMISTRY Calcium Lvl 8.5 8.5 - 10.5 10/08 Normal [facility]2012 [facility] CHEMISTRY Potassium Lvl 3.6 3.5 - 5.1 10/08 Normal [facility]2012 [facility] CHEMISTRY Chloride Lvl 96 95 - 109 10/08 Normal [facility]2012 [facility] CHEMISTRY Creatinine 0.6 0.5 - 1.4 10/08 Normal [place] [facility] 2012 [facility] CHEMISTRY Sodium Lvl 134 135 - 145 10/[address] CHEMISTRY Glucose Lvl 129 70 - 99 10/08 HI <sup>7</sup>I nterpretive Medical Data: Adult Center reference range values reflect the clinical guidelines
of the [place] [employer]. CHEMISTRY BUN 4 7 - 22 10/08 LOW [facility]2012 [facility] HEMATOLOGY Monocytes # 1.1 0.0 - 0.8 10/08 HI [facility]2012 [facility] HEMATOLOGY Eosinophils # 0.3 0.0 - 0.5 10/08 Normal [facility]2012 [facility] HEMATOLOGY Basophils # 0.1 0.0 - 0.2 10/08 [facility]2012 [facility] HEMATOLOGY Microcyte 1+ None Seen 10/08 [facility] *ABN* /2012 Medical (10/08/2012 03:57:00) Center HEMATOLOGY Segs 55.7 45.0 - 10/08 Normal [place] 75.0 /2013 [facility] HEMATOLOGY Lymphocytes 31.3 20.0 - 02/ Normal [place] 40.0 /2012 [facility] HEMATOLOGY Monocytes 10.0 2.0 - 12.0 02/ Normal /2012 [facility] HEMATOLOGY Eosinophils 2.5 0.0 - 4.0 02/ Normal [facility] HEMATOLOGY Segs-Bands # 6.1 1.5 - 8.1 02/ Normal [facility] HEMATOLOGY Basophils 0.5 0.0 - 1.0 02/ Normal /2012 [facility] HEMATOLOGY Lymphocytes # 3.4 1.0 - 5.5 02/ Normal [facility] HEMATOLOGY RDW 16.9 11.5 - 02/ [facility] 14.5 /2012 [facility] HEMATOLOGY Platelet 218 133 - 450 02/ Normal /2012 [facility] HEMATOLOGY WBC 10.9 3.7 - 10.4 02/ [facility] HEMATOLOGY RBC 4.35 4.20 - 02/ Normal [facility] 5.40 /2012 [facility] HEMATOLOGY MPV 9.7 7.4 - 10.4 02/ Normal [facility] HEMATOLOGY Hgb 10.4 12.0 - 02/ [facility] 16.0 /2012 [facility] HEMATOLOGY Hct 32.7 36.0 - 02/ [facility] 48.0 /2012 [facility] HEMATOLOGY MCHC 31.8 32.0 - 02/ [facility] 36.0 /2012 [facility] HEMATOLOGY MCV 75.2 81.0 - 02/ [facility] 99.0 /2012 [facility] HEMATOLOGY MCH 23.9 27.0 - 02/ [facility] 31.0 /2012 [facility] BEDSIDE Comment1 Notify 10/08 NA [facility] GLUCOSE RN/MD /2012 Medical TESTING Center BEDSIDE Gluc POC 247 70 - 99 10/08 HI <sup>3</sup>I [facility] GLUCOSE [facility] /2012 nterpretive Medical TESTING Data: Center Upper Reportable Limit: 200 mg/dL. CHEMISTRY Magnesium Lvl 2.1 1.8 - 2.4 02 Normal [facility] CHEMISTRY Ca Norm 1.16 1.16 - 02 [facility] 1.30 [facility] CHEMISTRY Ca Ion mgdL 4.72 4.65 - 02/ [facility] 5.20 /2013 [facility] CHEMISTRY Ca Norm mgdL 4.64 4.65 - 10/07 [facility] 5.20 [facility] CHEMISTRY Ca Ion 1.18 1.16 - 10/07 Normal [facility] 1.30 [facility] Center CHEMISTRY Phosphorus 2.6 2.5 - 4.5 10/07 Normal [facility] CHEMISTRY Calcium Lvl 8.1 8.5 - 10.5 10/07 [facility] CHEMISTRY AGAP 19.4 10.0 - 10/07 Normal [facility] 20.0 /2012 [facility] CHEMISTRY eGFR 116 10/07 NA <sup>5</sup>R [...] CHEMISTRY BUN 6 7 - 22 10/07 [facility] CHEMISTRY Glucose Lvl 99 70 - 99 10/07 Normal <sup>8</sup>I nterpretive Medical Data: Adult Center reference range values reflect the clinical guidelines
of the [place] [employer]. CHEMISTRY Creatinine 0.5 0.5 - 1.4 10/07 Normal [place] [facility] CHEMISTRY Potassium Lvl 3.4 3.5 - 5.1 10/07 [facility] CHEMISTRY Sodium Lvl 135 135 - 145 10/07 Normal [facility] CHEMISTRY CO2 24 24 - 32 10/07 Normal [facility] CHEMISTRY Chloride Lvl 95 95 - 109 10/07 [facility] 2013 [facility] HEMATOLOGY MCHC 31.8 32.0 - 02/ [facility] [place] 36.0 /2012 Medical [place] HEMATOLOGY MCH 24.1 27.0 - 02/ [facility] 31.0 [facility] HEMATOLOGY MCV 75.7 81.0 - 02 [facility] 99.0 /2012 [facility] HEMATOLOGY Hct 31.0 36.0 - 02 [facility] [place] 48.0 /2012 [facility] HEMATOLOGY Hgb 9.9 12.0 - 02 [facility] [place] 16.0 /2012 [facility] HEMATOLOGY MPV 9.1 7.4 - 10.4 02 Normal [facility] HEMATOLOGY Platelet 222 133 - 450 02 Normal [facility] HEMATOLOGY RDW 16.8 11.5 - [address] [facility] 14.5 /2012 [facility] HEMATOLOGY RBC 4.10 4.20 - 02 [facility] 5.40 /2012 [facility] HEMATOLOGY WBC 13.8 3.7 - 10.4 10/07 [facility] HEMATOLOGY Segs-Bands # 9.6 1.5 - 8.1 02 [facility] HEMATOLOGY Basophils 0.3 0.0 - 1.0 02 Normal [facility] HEMATOLOGY Eosinophils 1.0 0.0 - 4.0 02 [facility] HEMATOLOGY Microcyte 1+ None Seen 10/07 [facility] *ABN* /2012 Medical (10/07/2012 03:25:00) [place] HEMATOLOGY Lymphocytes # 2.9 1.0 - 5.5 02 [facility] HEMATOLOGY Eosinophils # 0.1 0.0 - 0.5 02 Normal [facility] HEMATOLOGY Monocytes # 1.2 0.0 - 0.8 02 [facility] HEMATOLOGY Monocytes 8.8 2.0 - 12.0 02 [facility] HEMATOLOGY Lymphocytes 20.8 20.0 - 02 [facility] 40.0 [facility] HEMATOLOGY Segs 69.1 45.0 - 02 Normal [facility] 75.0 /2012 [facility] Center URINALYSIS UA Glucose 500mg/dL 10/06 NA [facility] URINALYSIS UA 0.1 - 1.0 10/06 NA [facility] Urobilinogen /2013 [facility] URINALYSIS Micro? Performed 10/06 NA [facility] *NA* Medical (10/06/2012 11:42:00) Center URINALYSIS UA [place] Yeast Moderate /HPF None [facility] (10/06/2012 11:42:00) Center URINALYSIS UA RBC 3 0 - 2 10/06 HI [facility] URINALYSIS UA Bacteria Many /HPF None Seen 10/06 [facility] (10/06/2012 11:42:00) Center URINALYSIS UA WBC 3 0 - 5 10/06 Normal [facility] URINALYSIS UA Leuk Est Negative Negative 10/06 Normal [facility] (10/06/2012 11:42:00) Medical Center URINALYSIS UA Nitrite Negative Negative 10/06 Normal [facility] (10/06/2012 11:42:00) [facility] Center URINALYSIS UA Sq Epi Many /LPF Few 10/06 [facility]* Medical (10/06/2012 11:42:00) Center URINALYSIS UA Bili Negative Negative 10/06 [facility] (10/06/2012 11:42:00) Center URINALYSIS UA Blood Negative Negative 10/06 Normal [facility] (10/06/2012 11:42:00) [facility] Center URINALYSIS UA pH 5.5 5.0 - 8.0 10/06 Normal [facility] Center URINALYSIS UA Protein 20 mg/dL Negative 10/06 [facility] (10/06/2012 11:42:00) Center URINALYSIS UA Ketones >=150 mg/dL Negative 10/06 ABN [facility]* Medical (10/06/2012 11:42:00) Center URINALYSIS UA Color Yellow Yellow 10/06 [facility] (10/06/2012 11:42:00) Center URINALYSIS UA Turbidity Slight Clear 10/06 [facility] (10/06/2012 11:42:00) Center URINALYSIS UA Spec Grav 1.011 <=1.030 10/06 Normal [facility] Center URINALYSIS UA Mucus Few /LPF None Seen 10/06 NA [facility] *NA* /2012 Medical (10/06/2012 11:42:00) Center Microbiolog Culture: 10/06 [facility] y Urine [facility] CHEMISTRY Phosphorus 2.5 2.5 - 4.5 10/06 Normal [facility] CHEMISTRY Magnesium Lvl 1.5 1.8 - 2.4 10/06 LOW [facility] CHEMISTRY eGFR 76 10/06 NA <sup>6</sup>R [...] Lvl 3.9 3.5 - 5.1 10/06 Normal [facility] CHEMISTRY Chloride Lvl 97 95 - 109 10/06 Normal [facility] CHEMISTRY Calcium Lvl 8.3 8.5 - 10.5 10/06 LOW [facility] CHEMISTRY CO2 22 24 - 32 10/06 [facility] CHEMISTRY Glucose Lvl 234 70 - 99 10/06 HI <sup>9</sup>I nterpretive Medical Data: Adult Center reference range values reflect the clinical guidelines
of the [place] [employer]. CHEMISTRY Creatinine 0.9 0.5 - 1.4 10/06 Normal [place] [facility] CHEMISTRY BUN 9 7 - 22 10/06 Normal [facility] CHEMISTRY Sodium Lvl 134 135 - 145 10/06 [facility] CHEMISTRY AGAP 18.9 10.0 - 10/06 Normal [place] 20.0 /2012 [facility] HEMATOLOGY Segs-Bands # 13.3 1.5 - 8.1 10/06 [facility] Center HEMATOLOGY Basophils 0.2 0.0 - 1.0 10/06 Normal [facility] Center HEMATOLOGY Eosinophils 0.1 0.0 - 4.0 10/06 Normal [facility] HEMATOLOGY Monocytes 6.7 2.0 - 12.0 10/06 Normal [facility] Center HEMATOLOGY Segs 81.7 45.0 - 10/06 [facility] [place] 75.0 /2012 [facility] Center HEMATOLOGY Lymphocytes 11.3 20.0 - 10/06 [facility] [place] 40.0 /2012 [facility] HEMATOLOGY Microcyte 1+ None Seen 10/06 [facility] [place] *ABN* /2012 Medical (10/06/2012 04:25:00) [place] HEMATOLOGY Monocytes # 1.1 0.0 - 0.8 10/06 [facility] Center HEMATOLOGY Lymphocytes # 1.8 1.0 - 5.5 10/06 Normal [facility] HEMATOLOGY RBC 4.28 4.20 - 10/06 Normal [place] 5.40 /2012 [facility] Center HEMATOLOGY WBC 16.3 3.7 - 10.4 10/06 [facility] Center HEMATOLOGY Hgb 10.3 12.0 - 10/06 [facility] [place] 16.0 /2012 [facility] Center HEMATOLOGY Hct 32.6 36.0 - 10/06 [facility] [place] 48.0 /2012 Medical Center HEMATOLOGY MCH 24.0 27.0 - 10/06 [facility] [place] 31.0 /2012 [facility] Center HEMATOLOGY MCV 76.1 81.0 - 10/06 [facility] [place] 99.0 /2012 Medical Center HEMATOLOGY MCHC 31.5 32.0 - 10/06 [facility] [place] 36.0 /2012 [facility] Center HEMATOLOGY RDW 17.2 11.5 - 10/06 [facility] [place] 14.5 /2012 [facility] Center HEMATOLOGY Platelet 248 133 - 450 10/06 Normal [facility] HEMATOLOGY MPV 9.5 7.4 - 10.4 10/06 Normal [facility] CHEMISTRY Ca Norm 1.07 1.16 - 10/05 [facility] [place] 1.30 [facility] CHEMISTRY Ca Ion mgdL 4.36 4.65 - 10/05 [facility] [place] 5.20 [facility] CHEMISTRY Ca Norm mgdL 4.28 4.65 - 10/05 LOW [place] 5.20 [facility] CHEMISTRY Ca Ion 1.09 1.16 - 10/05 LOW [facility] 1.30 [facility] HEMATOLOGY Basophils # 0.1 0.0 - 0.2 10/05 Normal [facility] HEMATOLOGY Eosinophils # 0.1 0.0 - 0.5 10/05 Normal [facility] CHEMISTRY U Preg Negative Negative 10/03 Normal [facility] (10/03/2012 06:31:00) [facility] BLOOD BANK ABO/Rh A POS 10/03 Unknown [facility] RESULTS [facility] BLOOD BANK Antibody Scrn Negative 10/03 Normal [facility] RESULTS (10/03/2012 06:00:00) [facility] CHEMISTRY Total Protein 7.8 6.4 - 8.4 09/23 Normal [facility] CHEMISTRY AST 31 0 - 37 09/23 Normal [facility] CHEMISTRY Bili Total 0.3 0.2 - 1.3 09/23 Normal [facility] CHEMISTRY ALT 50 0 - 65 09/23 Normal [facility] CHEMISTRY Albumin Lvl 3.6 3.5 - 5.0 09/23 Normal [facility] CHEMISTRY Alk Phos 150 39 - 136 09/23 HI [facility] CHEMISTRY B/C Ratio 21 6 - 25 09/23 Normal [facility] CHEMISTRY Globulin 4.2 2.0 - 4.0 09/23 HI [facility] CHEMISTRY A/G Ratio 0.9 0.7 - 1.6 09/23 Normal [facility] HEMATOLOGY Hypochrom Slight None Seen 09/23 Normal [facility] (09/23/2012 12:35:00) [facility] HEMATOLOGY Elliptocyte Slight None Seen 09/23 ABN [facility] *ABN* /2012 Medical (09/23/2012 12:35:00) Center HEMATOLOGY Basophils # 0.1 0.0 - 0.2 09/23 Normal [facility] HEMATOLOGY Plt Morph Normal 09/23 Normal [facility] (09/23/2012 12:35:00) [facility] Center URINALYSIS UA 0.1 - 1.0 09/23 NA [facility] Urobilinogen /2012 [facility] URINALYSIS UA Nitrite Negative Negative 09/23 Normal [facility] (09/23/2012 12:35:00) Medical Center URINALYSIS UA Blood Negative Negative 09/23 Normal [facility] (09/23/2012 12:35:00) Medical Center URINALYSIS UA Leuk Est Negative Negative 09/23 Normal [facility] (09/23/2012 12:35:00) Medical Center URINALYSIS Micro? Not Indicated 09/23 NA [facility] (09/23/2012 12:35:00) Center URINALYSIS UA Ketones Negative mg/dL Negative 09/23 NA [facility] * [facility] (09/23/2012 12:35:00) Center URINALYSIS UA Bili Negative Negative 09/23 [facility] (09/23/2012 12:35:00) Center URINALYSIS UA Protein Negative mg/dL Negative 09/23 Normal [facility] (09/23/2012 12:35:00) Medical Center URINALYSIS UA pH 5.0 5.0 - 8.0 09/23 Normal Medical Center URINALYSIS UA Glucose Negative mg/dL Negative 09/23 NA [facility] (09/23/2012 12:35:00) Center URINALYSIS UA Color Light Yellow Yellow 09/23 NA [facility] (09/23/2012 12:35:00) Center URINALYSIS UA Spec Grav 1.004 <=1.030 09/23 Normal [facility] Center URINALYSIS UA Turbidity Clear Clear 09/23 Normal [facility] (09/23/2012 12:35:00) Medical Center BEDSIDE Gluc POC 153 70 - 99 06/28 [place] <sup>1</sup>I [facility] GLUCOSE [facility] nterpretive Medical TESTING Data: Center Upper Reportable Limit: 200 mg/dL. CHEMISTRY U Preg Negative Negative 06/28 Normal [facility] (06/28/2012 07:27:00) Medical Center Pathology Reports No Data Provided for This Section Diagnostic Reports Report Value Date Source Abdomen/Pelvis w EXAM: CT ABDOMEN WITH CONTRAST 07/12/2013 [facility] Medical contrast CT EXAM: CT PELVIS [...] views EXAM: XR ABDOMEN 1 VIEW 04/03/2013 [facility] DATE: March 25 90,013. INDICATION: [...] 1view EXAM: XR CHEST 1 VIEW 04/02/2013 [facility] DATE: 2013-04-02 1638 hours INDICATION: [...] Chest 1view EXAM: CHEST 1 VIEW 03/07/2013 [facility] DATE: Mar 07, 2013 07:45:00 [...] 2 views EXAM: CHEST 2 VIEWS 03/06/2013 [facility] DATE: Mar 06, 2013 06:47:00 [...] Comments Source Systolic (mm Hg) 124 08/13/2013 [facility] Respitory Rate 18 08/13/2013 [facility] Temperature Oral (F) 98.8 F 08/13/2013 [facility] Heart Rate 102 08/13/2013 [facility] Diastolic (mm Hg) 46 08/13/2013 [facility] Systolic (mm Hg) 107 08/13/2013 [facility] Respitory Rate 18 08/13/2013 [facility] Diastolic (mm Hg) 63 08/13/2013 [facility] Heart Rate 103 08/13/2013 [facility] Heart Rate 105 08/13/2013 [facility] Respitory Rate 18 08/13/2013 [facility] Systolic (mm Hg) 117 08/13/2013 [facility] Diastolic (mm Hg) 70 08/13/2013 [facility] Weight 81.818 08/13/2013 [facility] Height 162.56 cm 08/13/2013 [facility] Temperature Oral (F) 98.4 F 08/13/2013 [facility] Diastolic (mm Hg) 61 07/15/2013 [facility] Temperature Oral (F) 97.7 F 07/15/2013 [facility] Systolic (mm Hg) 117 07/15/2013 [facility] Respitory Rate 18 07/15/2013 [facility] Heart Rate 90 07/15/2013 [facility] Respitory Rate 18 07/14/2013 [facility] Heart Rate 104 07/14/2013 [facility] Diastolic (mm Hg) 46 07/14/2013 [facility] Systolic (mm Hg) 91 07/14/2013 [facility] Diastolic (mm Hg) 61 07/14/2013 [facility] Systolic (mm Hg) 95 07/14/2013 [facility] Respitory Rate 18 07/14/2013 [facility] Heart Rate 120 07/14/2013 [facility] Temperature Oral (F) 97.5 F 07/14/2013 [facility] Temperature Oral (F) 97.6 F 07/14/2013 [facility] Height 162.56 cm 07/12/2013 [facility] Weight 86.364 07/12/2013 [facility] Temperature Oral (F) 97.1 F 04/03/2013 [facility] Respitory Rate 18 04/03/2013 [facility] Heart Rate 79 04/03/2013 [facility] Diastolic (mm Hg) 66 04/03/2013 [facility] Systolic (mm Hg) 94 04/03/2013 [facility] Diastolic (mm Hg) 28 04/03/2013 [facility] Systolic (mm Hg) 116 04/03/2013 [facility] Respitory Rate 20 04/03/2013 [facility] Heart Rate 100 04/03/2013 [facility] Temperature Oral (F) 97.0 F 04/03/2013 [facility] Height 162.56 cm 04/03/2013 [facility] Weight 90 04/03/2013 [facility] Height 162.56 cm 04/02/2013 [facility] Weight 90 04/02/2013 [facility] Systolic (mm Hg) 132 03/09/2013 [facility] Diastolic (mm Hg) 72 03/09/2013 [facility] Heart Rate 114 03/09/2013 [facility] Temperature Oral (F) 97.7 F 03/09/2013 [facility] Respitory Rate 20 03/09/2013 [facility] Temperature Oral (F) 97.7 F 03/09/2013 [facility] Heart Rate 108 03/09/2013 [facility] Systolic (mm Hg) 143 03/09/2013 [facility] Respitory Rate 18 03/09/2013 [facility] Diastolic (mm Hg) 81 03/09/2013 [facility] Heart Rate 115 03/09/2013 [facility] Diastolic (mm Hg) 70 03/09/2013 [facility] Systolic (mm Hg) 153 03/09/2013 [facility] Respitory Rate 18 03/09/2013 [facility] Temperature Oral (F) 97.5 F 03/09/2013 [facility] Weight 90 03/07/2013 [facility] Height 162.56 cm 03/07/2013 [facility] Height 162.56 cm 03/06/2013 [facility] Weight 90 03/06/2013 [facility] Systolic (mm Hg) 127 12/07/2012 [facility] Diastolic (mm Hg) 49 12/07/2012 [facility] Heart Rate 90 12/07/2012 [facility] Temperature Oral (F) 98.3 F 12/07/2012 [facility] Respitory Rate 18 12/07/2012 [facility] Systolic (mm Hg) 104 12/07/2012 [facility] Temperature Oral (F) 98.6 F 12/07/2012 [facility] Respitory Rate 18 12/07/2012 [facility] Heart Rate 78 12/07/2012 [facility] Diastolic (mm Hg) 57 12/07/2012 [facility] Heart Rate 89 12/07/2012 [facility] Temperature Oral (F) 97.6 F 12/07/2012 [facility] Respitory Rate 18 12/07/2012 [facility] Systolic (mm Hg) 105 12/07/2012 [facility] Diastolic (mm Hg) 51 12/07/2012 [facility] Weight 100 11/29/2012 [facility] Height 162.56 cm 11/29/2012 [facility] Weight 100.568 11/29/2012 [facility] Height 162.56 cm 11/29/2012 [facility] Weight 101.364 11/28/2012 [facility] Height 162.56 cm 11/28/2012 [facility] Diastolic (mm Hg) 55 11/17/2012 [facility] Systolic (mm Hg) 117 11/17/2012 [facility] Diastolic (mm Hg) 70 11/17/2012 [facility] Systolic (mm Hg) 118 11/17/2012 [facility] Diastolic (mm Hg) 61 11/17/2012 [facility] Systolic (mm Hg) 154 11/17/2012 [facility] Temperature Oral (F) 97.8 F 11/17/2012 [facility] Temperature Oral (F) 97.9 F 11/17/2012 [facility] Temperature Oral (F) 98.6 F 11/17/2012 [facility] Height 162.56 cm 11/17/2012 [facility] Weight 103.21 11/17/2012 [facility] Respitory Rate 18 11/17/2012 [facility] Height 162.56 cm 11/16/2012 [facility] Weight 100 11/16/2012 [facility] Diastolic (mm Hg) 58 11/14/2012 [facility] Systolic (mm Hg) 121 11/14/2012 [facility] Respitory Rate 20 11/14/2012 [facility] Heart Rate 84 11/14/2012 [facility] Temperature Oral (F) 98.0 F 11/14/2012 [facility] Respitory Rate 20 11/14/2012 [facility] Systolic (mm Hg) 103 11/14/2012 [facility] Diastolic (mm Hg) 54 11/14/2012 [facility] Temperature Oral (F) 98.0 F 11/14/2012 [facility] Heart Rate 83 11/14/2012 [facility] Diastolic (mm Hg) 68 11/14/2012 [facility] Respitory Rate 20 11/14/2012 [facility] Heart Rate 79 11/14/2012 [facility] Systolic (mm Hg) 136 11/14/2012 [facility] Temperature Oral (F) 98.4 F 11/14/2012 [facility] Height 162.56 cm 11/06/2012 [facility] Weight 100 11/06/2012 [facility] Height 162.56 cm 11/06/2012 [facility] Weight 100 11/06/2012 [facility] Height 162.56 cm 11/06/2012 [facility] Weight 104.545 11/06/2012 [facility] Systolic (mm Hg) 131 11/01/2012 [facility] Diastolic (mm Hg) 62 11/01/2012 [facility] Systolic (mm Hg) 125 11/01/2012 [facility] Diastolic (mm Hg) 62 11/01/2012 [facility] Systolic (mm Hg) 155 10/31/2012 [facility] Diastolic (mm Hg) 54 10/31/2012 [facility] Temperature Oral (F) 99.7 F 10/31/2012 [facility] Temperature Oral (F) 96.7 F 10/31/2012 [facility] Temperature Oral (F) 98.1 F 10/31/2012 [facility] Respitory Rate 19 10/31/2012 [facility] Respitory Rate 19 10/31/2012 [facility] Respitory Rate 19 10/31/2012 [facility] Weight 78.2 10/24/2012 [facility] Heart Rate 126 10/23/2012 [facility] Heart Rate 130 10/23/2012 [facility] Weight 113.636 10/23/2012 [facility] Height 162.56 cm 10/23/2012 [facility] Heart Rate 119 10/23/2012 [facility] Height 162.56 cm 10/23/2012 [facility] Systolic (mm Hg) 123 10/08/2012 [facility] Respitory Rate 19 10/08/2012 [facility] Diastolic (mm Hg) 51 10/08/2012 [facility] Heart Rate 81 10/08/2012 [facility] Temperature Oral (F) 98.8 F 10/08/2012 [facility] Diastolic (mm Hg) 55 10/08/2012 [facility] Respitory Rate 20 10/08/2012 [facility] Systolic (mm Hg) 136 10/08/2012 [facility] Heart Rate 82 10/08/2012 [facility] Temperature Oral (F) 98.9 F 10/08/2012 [facility] Diastolic (mm Hg) 47 10/08/2012 [facility] Systolic (mm Hg) 107 10/08/2012 [facility] Temperature Oral (F) 98.1 F 10/08/2012 [facility] Respitory Rate 18 10/08/2012 [facility] Heart Rate 75 10/08/2012 [facility] Weight 118.200 10/03/2012 [facility] Height 162.56 cm 10/03/2012 [facility] Weight 118.182 09/23/2012 [facility] Height 162.56 cm 09/23/2012 [facility] Diastolic (mm Hg) 57 06/28/2012 [facility] Heart Rate 104 06/28/2012 [facility] Respitory Rate 18 06/28/2012 [facility] Systolic (mm Hg) 147 06/28/2012 [facility] Systolic (mm Hg) 153 06/28/2012 [facility] Diastolic (mm Hg) 61 06/28/2012 [facility] Respitory Rate 16 06/28/2012 [facility] Systolic (mm Hg) 136 06/28/2012 [facility] Diastolic (mm Hg) 52 06/28/2012 [facility] Respitory Rate 18 06/28/2012 [facility] Temperature Oral (F) 98.5 F 06/28/2012 [facility] Heart Rate 104 06/28/2012 [facility] Weight 118.182 06/14/2012 [facility] Height 162.56 cm 06/14/2012 [facility] Encounters Location Location Encounter Encounter Reason Attending ADM DC Status Source Details Type Number For Provider Date Date Visit [facility] DS [id number] DSU/ WOLFGANG 06/28 Active [facility] REFLUX SUSHILA /2011 Medical [facility] Inpatient [id number] WOLFGANG 10/03 10/08 Discharg [facility] /2012 ed Medical [facility] Inpatient [id number] N/V DARELL 10/23 11/01 Active [facility] DEHYDRAT SDRINGOLA- /2012 Medical [place] ION MARHCA [facility] Inpatient [id number] LAVONE 11/05 11/14 Discharg [facility] /2012 ed [facility] OU [id number] CIHP 11/16 11/17 Discharg [facility] MARKUS /2012 ed Medical [facility] Inpatient [id number] JUAN J 11/29 12/07 Discharg [facility] BRANDO /2012 ed [facility] OU [id number] SANJUANA 03/07 03/09 Discharg [facility] OSUAGWU /2012 ed Medical [facility] OU [id number] JEANNIE 04/02 04/03 Discharg [facility] ADOLFO /2012 ed [facility] OU [id number] GASTROPA JEANNIE 07/12 07/14 Active [facility] ADOLFO /2012 Medical [facility] JACKIE [id number] WOLFGANG 07/26 07/27 Discharg [facility] /2012 ed Medical [facility] Emergency [id number] KATELYN 08/13 08/13 Discharg [facility] BUBLEWICZ /2012 ed [facility] Outpatient [id number] SERGO WHITFIELD Cancel [facility] Procedures Procedure Code Date Perfomer Comments Source section [id number] [facility] Cholecystectomy [id number] [facility] <sup>1</sup> [facility] Hand repair [id number], x'2 [facility] <sup>2</sup> [facility] Tonsillectomy [id number] [facility] <sup>3</sup> [facility] Bypass of stomach [id number] [facility] Rotator cuff repair [id number] [facility] Heart procedure [id number] 1cardiac [facility] <sup>1</sup> stent for [facility] Assessment and Plan No Data Provided for This Section Plan of Care No Data Provided for This Section Social History No Data Provided for This Section Family History No Data Provided for This Section Advance Directives No Data Provided for This Section Functional Status No Data Provided for This Section
--- NOTE | 2019-03-26 19:50 | RAD REPORT ---
EXAM DESCRIPTION: CT - Thorax Wo Con CLINICAL HISTORY: Chest pain trauma;Pain COMPARISON: Chest For Pe Angio dated 06/11/2018; Chest Single View dated 03/13/2019; Thorax Wo Con date d 12/05/2017; THORAX WO CONTRAST dated 03/20/2013 FINDINGS: The lungs are clear. No pleural thickening or pleural effusion. No pneumothorax. No axillary, mediastinal or hilar adenopathy. Multiple subacute left posterolateral rib fractures are present spanning ribs 6 through 10. Cholecyst ectomy clips are seen in the upper abdomen. Several small bilateral renal calculi are noted All CT scans are performed using dose optimization technique as appropriate and may include automated exposure control or mA/KV adjustment according to patient size. IMPRESSION: Multiple subacute/healing left posterolateral rib fractures involving ribs 6-10.No pneum othorax.
--- OUTSIDE RECORDS SUMMARY | 2019-03-26 19:50 | XMS REPORT | CCD ---
:1965 Author Organization [facility] Care Team Providers Name Role Phone Sukhwinder [...]
--- OUTSIDE RECORDS SUMMARY | 2019-03-26 19:50 | XMS REPORT | CCD ---
:1965 Author Organization [facility] Care Team Providers Name Role Phone Sukhwinder Renteria Referring Provider Allergies, Adverse Reactions, Alerts Substance Reaction Status NKDA Active Problem List Condition Effective Dates Status Acid reflux Resolved Anemia Resolved Anxiety Resolved Arthritis Resolved Depression Resolved Diabetes mellitus type 1 Resolved Edema of lower extremity Resolved Fibromyalgia Resolved Hyperlipidemia Resolved Hypertension Resolved Medications Medication Instructions Start Date End Date Status [place] 325 mg-10 mg / 15 mL, Route: [...] Duration: 30 day, Stop date: 11/02/12 10:59:00 [place] 325 mg-10 mg / 30 mL, Route: PO, 10/04/2012 10/05/2012 Discontinued 15 mL oral solution Drug Form: SOLN, Dosing Weight 118.2, kg, Q4H, PRN Pain Score 6-10, Start date: 10/04/12 17:20:00, Duration: 30 day, Stop date: 11/03/12 17:19:00 [place] 325 mg-10 mg / 15 mL, Route: [...] 14:28:00, PRN Blood Glucose Results Blistex Lip [place] Route: TOP, Dosing 10/06/2012 10/06/2012 Deleted Weight [...] /LPF] Few /LPF *NA* (10/06/2012 11:42:00) [facility] [place] Yeast [None Seen /HPF] Moderate /HPF *ABN* [...] values reflect the clinical guidelines of the [place] [employer].8Interpretive Data: Adult reference range values reflect the clinical guidelines of the [place] [employer].9Interpretive Data: Adult reference range values reflect the clinical guidelines of the [place] [employer].HEMATOLOGY Most recent to oldest 1 [...] Catch FREE TEXT SOURCE: FINAL REPORTS Final Tphofi71,000 - 50,000 CFU/mL Enterococcus SpeciesPRELIMINARY REPORTS Preliminary Fcbfid56,000 - 50,000 CFU/ mL Enterococcus Species ; Sensitivity PendingSUSCEPTIBILITY REPORT ENTERO Antibiotic INTERP. VDIL Ampicillin S Levofloxacin S Nitrofurantoin S Tetracycline R Vancomycin S Procedures Procedures Date Related Diagnosis section Cholecystectomy 1 Hand repair 2 Tonsillectomy 3 , [id number]
--- OUTSIDE RECORDS SUMMARY | 2019-03-26 19:51 | XMS REPORT | CCD ---
:1965 Author Organization [facility] Care Team Providers Name Role [...] Hypertension Resolved MRSA1, 2 10/23/2012 Active 1nares 10/23/[id number] added by Discern Expert. Medications Medication Instructions [...] Duration: 30 day, Stop date: 12/06/12 1:48:00 [place] 5/325 oral tablet 1 tab, PO, Q6H, [...] Duration: 30 day, Stop date: 12/08/12 10:44:00 [place] 5/325 oral tablet 1 tab, Route: PO, [...] INJ, Q2H, Dosing Weight 100, kg, Total rlqa=8497 mg, Start date: 11/14/12 8:00:00, Duration: 2 [...] 11/08/2012 11/08/2012 Canceled PO, Drug form: TAB, [id number], Dosing Weight 100, kg, Start date: 11/08/12 [...] [Negative] Negative 1 (11/12/2012 21:54:26) 1Interpretive Data: Kontagentigene Clostridium difficile assay utilizes loop-mediated isothermalDNA amplification (LAMP) technology to detect a 204 bp region of the tcdA gene within the PaLoc genesegment present in all known toxigenic C. difficile strains. The assay utilizes FDA cleared IVD reagents. Performance characteristics have been verified by the Molecular Diagnostic Laboratory within the [facility]. The Molecular Diagnostic Laboratory is authorized under [...] values reflect the clinical guidelines of the [place] [employer].10Interpretive Data: Adult reference range values reflect the clinical guidelines of the [place] [employer].11Result Comment: rechecked Critical Result (s) called leslie Conner Rose at 11/12/2012 02:56:37 ORTHOTIC/PROSTHETIC CLINICIAN by_mgm. Read back OK.12Interpretive Data: Adult reference range values reflect the clinical guidelines of the [place] [employer].13Result Comment: Critical Result(s) called to [...] 10.0 240 Poor Control, take action to [id number] Comment : Critical Result(s) called leslie Rose [...] Catch FREE TEXT SOURCE: FINAL REPORTS Final Ednyaw89,000 - 100,000 CFU/mL Enterococcus SpeciesPRELIMINARY REPORTS Preliminary Cphqor35,000 - 100,000 CFU/ mL Enterococcus Species Identification And Sensitivity PendingSUSCEPTIBILITY REPORT ENTERO Antibiotic INTERP. VDIL Ampicillin S Levofloxacin S Nitrofurantoin S Tetracycline R Vancomycin S
--- OUTSIDE RECORDS SUMMARY | 2019-03-26 19:52 | XMS REPORT | CCD ---
:1965 Author Organization [facility] Care Team Providers Name Role Phone Emeli Clark Consulting Provider Allergies, Adverse Reactions, Alerts Substance Reaction Status NKDA Active Problem List Condition Effective Dates Status Acid reflux Resolved Anemia Resolved Anxiety Resolved Arthritis Resolved Depression Resolved Diabetes mellitus type 1 Resolved Edema of lower extremity Resolved Fibromyalgia Resolved Hyperlipidemia Resolved Hypertension Resolved MRSA1, 2 10/23/2012 Active 1nares 10/23/[id number] added by Discern Expert. Medications Medication Instructions [...] 1 doses or times, Dose= 2.2ml/kg, Max vqzl=300ae -- "To be infused by Radiology Staff ONLY" 201211/16/2012 Discontinued Dose=2.2ml/kg, Max igoe=029if -- "To be infused by Radiology Staff ONLY" calcium gluconate + Sodium 2,000 mg, 20 mL, Route: 11/17/2012 11/17/2012 Completed Chloride 0.9% IV 80 mL IVPB, ONCE, Dosing Weight 103.21, kg, Start date: 11/17/12 11:02:00, Stop date: 11/17/12 11:02:00 enoxaparin 40 mg, 0.4 mL, Route: 11/16/2012 11/17/2012 Discontinued SUB-Q, Drug form: INJ, [id number], Dosing Weight 100, kg, Start date: 11/16/12 [...] date: 11/16/12 13:40:00, Stop date: 11/16/12 13:40:00 [place] 5/325 oral tablet 1 tab, Route: PO, [...] the clinical guidelines of the [place] [employer].7Interpretive Data: Adult reference range values reflect the clinical guidelines of the [place] [employer].HEMATOLOGY Most recent to oldest [Reference [...]
--- OUTSIDE RECORDS SUMMARY | 2019-03-26 19:52 | XMS REPORT | CCD ---
[...] Hypertension Resolved MRSA1, 2 10/23/2012 Active 1nares 10/23/[id number] added by Discern Expert. Medications Medication Instructions [...] mg, 1 supp, 10/23/2012 11/01/2012 Discontinued Route: SD, Drug form: SUPP, Q6H, Dosing Weight 113.636, kg, PRN Fever, Start date: 10/23/12 0:37:00, Duration: 30 day, Stop date: 11/22/12 0:36:00 Visipaque 320mg/ml 126 mL, Route: IVP, Drug Form: SOLN, Dosing Weight 113.636 , kg, ONCALL, STAT, Start date: 10/23/12 16:52:00, Duration: 1 doses or times, Dose=2.2ml/kg, Max unkn=148wt -- "To be infused by Radiology Staff ONLY" 10/2310/23/2012 Completed Dose=2.2ml/kg, Max mftd=330ys -- "To be infused by Radiology Staff [...] mg, 1 supp, 10/24/2012 10/24/2012 Deleted Route: SD, Drug form: SUPP, ONCE, Dosing Weight 78.2, [...] Duration: 1 doses or times, Dose=2.2ml/kg, Max dwfe=641sk -- "To be infused by Radiology Staff ONLY" 10/2310/23/2012 Completed Dose=2.2ml/kg, Max brur=902yt -- "To be infused by Radiology Staff [...] the Molecular Diagnostic Laboratory within the [facility]. The Molecular Diagnostic Laboratory [...] the clinical guidelines of the [place] [employer].11Interpretive Data: Adult reference range values reflect the clinical guidelines of the [place] [employer].12Interpretive Data: Adult reference range values reflect the clinical guidelines of the [place] [employer].13Interpretive Data: Reference range is based on recommendations in the Endocrine Society Clinical Practice Guideline (J Clin Endocrinol Metab 2011;96:1483-8981)14Result Comment: Specimen Moderately Hemolyzed.15Result Comment: Critical Result(s) called to daisy otoole at 10/25/2012 01:18:09 SLAG SKIMMER by tac. Read back OK.16Result Comment: Critical Result(s) called to Maribel Bustos at 10/24/2012 13:23:46 SLAG SKIMMER by lwb . Readback OK.17Result Comment: Critical Result(s) called to Lyn King at 10/24/2012 09:52:38 SLAG SKIMMER by lwb . Read back OK.18Result Comment: Critical Result(s) called to Jelani Rasmussen at 10/25/2012 00: 47:48 SLAG SKIMMER by RM. Read back OK.19Result Comment: Critical Result(s) called to mariana bustos at _ 10/24/2012 13:37:22 CSTby_lss. Readback OK.20Result Comment : Critical Result(s) called to romero beltre at _10/24/2012 09:50:18 SLAG SKIMMER by_lss. Read back OK.21Interpretive Data: HbA1C% eAG(mg/dL) [...] Data: Heparin Therapeutic Range: 57 - 92 [id number] Data: Heparin Therapeutic Range: 57 - 92 [id number] Data: Heparin Therapeutic Range: 57 - 92 Seconds Microbiology Reports PROCEDURE:Culture: Urine STATUS: Auth (Verified) BODY SITE: COLLECTED DATE/TIME: 10/23/2012 20:33:00 SOURCE: Urine,Straight Cath FREE TEXT SOURCE: FINAL REPORTS Final Tadtkv58,000 - 100,000 CFU/mL Gram Negative Rods , Lactose Fermenters , 2 [place] Types 50,000 - 100,000 CFU/mL Enterococcus Species [...]
--- OUTSIDE RECORDS SUMMARY | 2019-03-26 19:53 | XMS REPORT | CCD ---
[...] Resolved Fibromyalgia Resolved Hyperlipidemia Resolved Hypertension Resolved ME - Myocardial infarction 10/22/2012 Resolved MRSA1, 2, 3, 4 10/23/2012 Active Neuropathy Resolved - Nares - Zfiqm4mqqna 10/23/201299893Whcxdti added by Discern Expert. Medications Medication Instructions [...] IVPB, Drug 12/02/2012 12/02/2012 Discontinued form: PDR/INJ, [id number], Dosing Weight 100, kg, Start date: 12/02/12 [...] 11/29/2012 11/29/2012 Discontinued SUB-Q, Drug form: INJ, [id number], Dosing Weight 101.364, kg, Start date: 11/29/12 [...] mg, 1 supp, Route: 12/04/2012 12/07/2012 Discontinued TN, Drug form: SUPP, Q4H, Dosing Weight 100, [...] date: 12/04/12 23:39:00, Stop date: 12/04/12 23:39:00 [place] 7.5/325 oral tablet 1 tab, Route: PO, [...] IVPB, Drug 11/29/2012 12/01/2012 Discontinued form: PDR/INJ, [id number], Dosing Weight 100, kg, Start date: 11/29/12 [...] 7:47:00 Phenergan 25 mg rectal 1 supp, TN, Q6H, PRN, 9 11/29/2012 Ordered suppository supp, [...] Molecular Diagnostic Laboratory within the [facility]. The Molecular Diagnostic Laboratory is authorized [...] values reflect the clinical guidelines of the [place] [employer].11Interpretive Data: Adult reference range values reflect the clinical guidelines of the [place] [employer].12Interpretive Data: Adult reference range values reflect the clinical guidelines of the [place] [employer].13Interpretive Data: No established reference ranges.14Interpretive [...] Data: Heparin Therapeutic Range: 57 - 92 [id number] Data: Heparin Therapeutic Range: 57 - 92 [...] Catch FREE TEXT SOURCE: FINAL REPORTS Final Xzprqu32,000 - 50,000 CFU/mL Yeast <10,000 CFU/mL Skin EsPRELIMINARY REPORTS Preliminary ReportNo Growth; Holding Procedures Procedures Date Related Diagnosis Heart procedure 1 1cardiac stent for ME
--- OUTSIDE RECORDS SUMMARY | 2019-03-26 19:54 | XMS REPORT | CCD ---
:1965 Author Organization [facility] Care Team Providers Name Role [...] 10/23/2012 Active Neuropathy Resolved - Nares - Kgrdq2tyanc 10/23/201218124Ezqabcu added by Discern Expert. Medications Medication Instructions Start Date End Date Status acetaminophen-hydrocod 1 tab, Route: PO, Drug Form: 07/12/2013 07/14/2013 Discontinued one 325 mg-5 mg oral TAB, Dosing Weight 86.364, tablet kg, Q4H, PRN Pain, Start date: 07/12/13 18:23:00, Duration: 30 day, Stop date: 08/11/13 18:22:00(Same as: [place] 325/5) Do not exceed 4gm/day of acetaminophen. [...] 1 doses or times, Dose =2.2ml/kg, Max fnsl=698jf -- "To be infused by Radiology Staff ONLY" 201207/12/2013 Completed Dose=2.2ml/kg, Max uzsd=683xi -- "To be infused by Radiology Staff [...] day, Stop date: 08/11/13 9:00:00(Same as: Lopressor) [place] 5/325 oral 1 tab, Route: PO, Dosing [...] date: 08/11/13 9:00:00(Same as: Mag-Ox 400)Magnesium oxide 680br=536qk elemental magnesiumDose=____mg magnesium oxide (___mg elemental magnesium) [...] [Negative] Negative 1 (07/13/2013 00:00:59) 1Interpretive Data: [employer] illum[employer]ene Clostridium difficile assay utilizes loop-mediated isothermalDNA amplification (LAMP) technology to detect a 204 bp region of the tcdA gene within the PaLoc genesegment present in all known toxigenic C. difficile strains. The assay utilizes FDA cleared IVD reagents. Performance characteristics have been verified by the Molecular Diagnostic Laboratory within the [facility]. The Molecular Diagnostic Laboratory is [...] /LPF] Many /LPF *ABN* (07/12/2013 03:00:00) UA [place] Yeast [None Seen /HPF] Moderate /HPF *ABN* [...] the clinical guidelines of the [place] [employer].9Interpretive Data: Adult reference range values reflect the clinical guidelines of the [place] [employer].10Interpretive Data: Adult reference range values [...] to oldest [Reference Range]: 1 2 3 [place]-HIV 1/2 Ab [Negative] Negative *NA* (07/14/2013 00:27:00) [place]-Hep C Ab [Negative] Negative *NA* (07/14/2013 00:27:00) CDC-HIV 1/2 Ab [Negative] Negative *NA* (07/12/2013 16:02:06)
--- OUTSIDE RECORDS SUMMARY | 2019-03-26 19:54 | XMS REPORT | CCD ---
:1965 Author Organization [facility] Care Team Providers Name Role Phone Sukhwinder [...] 10/23/2012 Active Neuropathy Resolved - Nares - [id number] 10/23/201291899Adqrgqa added by Discern Expert. Medications Medication Instructions [...]
--- OUTSIDE RECORDS SUMMARY | 2019-03-26 19:54 | XMS REPORT | CCD ---
[...] 10/23/2012 Active Neuropathy Resolved - Nares/ - [id number] 10/23/201270570Wvxcpza added by Discern Expert. Medications Medication Instructions [...] 03/08/13 3:17:00, Stop date: 03/08/13 3:17:00 lidocaine-epi 1%-1:019422 1 ml, Route: SUB-Q, Drug 03/07/2013 03/07/2013 [...] date: 03/07/13 2:35:00, Stop date: 03/07/13 2:35:00 [place] 5/325 oral tablet 1 tab, PO, Q6H, [...] Results BEDSIDE GLUCOSE TESTING Most recent to [facility] 1 2 3 [Reference Range]: Gluc POC [...] Reportable Limit: 200 mg/dL.URINALYSIS Most recent to [facility] [Reference Range]: 1 2 3 UA Turbidity [...] values reflect the clinical guidelines of the [place] [employer].8Interpretive Data: Adult reference range values reflect the clinical guidelines of the [place] [employer].9Interpretive Data: Adult reference range values reflect the clinical guidelines of the [place] [employer].HEMATOLOGY Most recent to oldest 1 [...]
--- OUTSIDE RECORDS SUMMARY | 2019-03-26 19:54 | XMS REPORT | CCD ---
:1965 Author Organization [facility] Care Team Providers Name Role Phone Alberto [...] 10/23/2012 Active Neuropathy Resolved - Nares - Yyymy0fiust 10/23/201278872Yyxvjwl added by Discern Expert. Medications Medication Instructions [...] values reflect the clinical guidelines of the [place] [employer].7Interpretive Data: Adult reference range values reflect the clinical guidelines of the [place] [employer].HEMATOLOGY Most recent to oldest [Reference [...]
--- OUTSIDE RECORDS SUMMARY | 2019-03-26 19:55 | XMS REPORT ---
:1965 Author Organization [facility] Address [address] [place] [address] [address] [place] [address] Care Team Providers Name Role Phone SHANI [...] (BEAKER) (test 211 mg/dL 70-110 TESTED AT [address] sfnf=6500) [place] [id number] POCT-GLUCOSE [id number] 13:04:00 Test Item Value Reference Range Comments POC-GLUCOSE METER (BEAKER) 282 mg/dL 70-110 TESTED AT [address] (test udrc=7983) [place] [id number] POCT-GLUCOSE [id number] 14:35:00 Test Item Value Reference Range Comments POC-GLUCOSE METER (BEAKER) 200 mg/dL 70-110 TESTED AT [address] (test mphr=4743) [place] [address] [id number] 12:24:00 Test Item Value Reference Range Comments SODIUM (BEAKER) (test vdfm=794) 136 meq/L 136-145 POTASSIUM (BEAKER) (test axab=592) 5.4 meq/L 3.5-5.1 CHLORIDE (BEAKER) (test dsxl=851) 102 meq/L 98-107 CO2 (BEAKER) (test ypie=092) 25 meq/L 22-29 [id number] 12:24:00 Test Item Value Reference Range Comments GLUCOSE RANDOM (BEAKER) (test iyxw=242) 353 mg/dL 70-105 BUN AND [id number] 12:24:00 Test Item Value Reference Range Comments BLOOD UREA NITROGEN 14 mg/dL 7-21 ([facility]) (test fcsg=959) CREATININE ([facility]) (test 1.08 mg/dL 0.57-1.25 oapt=065) EGFR ([facility]) (test 53 mL/min/1.73 sq m ESTIMATED GFR IS NOT msdc=3326) ACCURATE CREATININE CLEARANCE IN PREDICTING GLOMERULAR FILTRATION RATE. ESTIMATED GFR IS NOT APPLICABLE FOR DIALYSIS PATIENTS. POCT-HEMOGLOBIN [id number] 11:43:00 Test Item Value Reference Range Comments POC-HEMOGLOBIN METER 12.1 g/dL 12.0-15.0 [address]ED [address] ([facility]) (test sjsl=1630) [place] [address] POCT-GLUCOSE [id number] 11:43:00 Test Item Value Reference Range Comments POC-GLUCOSE METER ([facility]) 320 mg/dL 70-110 Verify with Lab draw/TESTED AT (test dcny=0095) [place] [id number] [address] [place] [address]
--- OUTSIDE RECORDS SUMMARY | 2019-03-26 19:55 | XMS REPORT | CCD ---
:1965 Author Organization [facility] Care Team Providers Name Role Phone Robert Woot[employer] Consult[employer] Provider Allergies, Adverse Reactions, Alerts Substance Reaction Status NKDA Active Problem List Condition Effective Dates Status Acid reflux Resolved Anemia Resolved Anxiety Resolved Arthritis Resolved Depression Resolved Diabetes mellitus type 1 Resolved Edema of lower extremity Resolved Fibromyalgia Resolved Gastric ulcer Resolved Hyperlipidemia Resolved Hypertension Resolved [place] - Myocardial infarction 10/22/2012 Resolved MRSA1, 2, 3, 4 10/23/2012 Active Neuropathy Resolved - Nares - [id number] 10/23/201230332Hqkztkp added by Discern Expert. Medications Medication Instructions [...] values reflect the clinical guidelines of the [place] [employer].HEMATOLOGY Most recent to oldest [Reference [...]
[2019-03-26 20:27] LABS: Absolute Lymphocytes (CBC) 2.6 K/uL (0.7-4.9); Basophils % 1.2 % (0-1.3); Eosinophils % 1.7 % (0-4.4); Hematocrit 32.5 % (36.0-45.0); Lymphocytes % 30.5 % (15.3-44.8); MPV 8.8 fL (7.6-11.3); Monocytes % 9.7 % (3.3-12.3); RBC Red Blood Cell Count 4.08 M/uL (3.86-4.86)
[2019-03-26 20:43] LABS: ALT/SGPT 19 U/L (12-78); AST/SGOT 15 U/L (15-37); Albumin 3.3 g/dL (3.4-5.0); Alkaline Phosphatase 143 U/L (45-117); BUN Blood Urea Nitrogen 12 mg/dL (7-18); Bicarbonate 27 mmol/L (21-32); Bilirubin Direct 0.2 mg/dL (0-0.2); Bilirubin Total 0.3 mg/dL (0.2-1.0); Glucose Level 96 mg/dL (74-106); Lipase 37 U/L (73-393); Potassium 3.5 mmol/L (3.5-5.1); Protein, Total 7.6 g/dL (6.4-8.2); Sodium Level 133 mmol/L (136-145); Troponin (Emerg Dept Use Only) < 0.02 ng/mL (0.0-0.045)
--- NOTE | 2019-03-26 21:09 | ER ---
Nurse's Notes [facility] Name: Ila Pérez Age: 53 yrs Sex: Female : 1965 Arrival Date: 03/26/2019 Time: 18:52 Bed 20 Private MD: Fabián Guerra E Diagnosis: Multiple fractures of ribs, left side-healing, subacute;Diarrhea, unspecified Presentation: 03/26 18:56 Presenting complaint: Patient states: I am having pain in my chest but I also had a la1 recent rib fracture. I have been having diarrhea and nausea and my BGL was 500 at home. Transition of care: patient was not received from another setting of care. Onset of symptoms was March 26, 2019. Risk Assessment: Do you want to hurt yourself or someone else? Patient reports no desire to harm self or others. Initial Sepsis Screen: Does the patient meet any 2 criteria? No. Patient's initial sepsis screen is negative. Does the patient have a suspected source of infection? No. Patient's initial sepsis screen is negative. Care prior to arrival: None. 18:56 Method Of Arrival: Wheelchair la1 18:56 Acuity: DEVONTE 2 la1 Triage Assessment: 19:01 General: Appears in no apparent distress. uncomfortable, Behavior is calm, cooperative, cc3 appropriate for age. Pain: Complains of pain in left lateral anterior chest. Cardiovascular: Reports chest pain, Capillary refill < 3 seconds Patient's skin is warm and dry. Historical: - Allergies: 18:57 Gluten Protein; la1 - Home Meds: 19:10 Albuterol Inhl [Active]; aspirin 81 mg Oral chew 1 tab once daily [Active]; benzonatate cc3 100 mg Oral cap 1 cap twice a day [Active]; bupropion HCl 150 mg Oral TbER once daily [Active]; Carafate 100 mg/mL Oral susp 10 mL three times a day [Active]; cholestopl 1 mg twice a day [Active]; Cinnamon 500 mg Oral cap 2 cap daily [Active]; Claritin 10 mg Oral tab 1 tab once daily [Active]; cyclobenzaprine 10 mg Oral tab twice a day [Active]; D3 2000 IU 2 per day [Active]; diphenoxylate-atropine 2.5-0.025 mg Oral tab 1-2 tablets every 6 hours [Active]; duloxetine 60 mg Oral cpDR 2 caps once daily [Active]; ferrous sulfate 325 mg (65 mg iron) Oral TbEC twice a day [Active]; furosemide 20 mg Oral tab one to two tabs every morning [Active]; [place] 120 mg daily [Active]; Glucagon Emergency Kit (human) 1 mg IM kit 1 mL [Active]; Glucosamine Oral [Active]; Humalog 100 unit/mL Sub-Q soln [Active]; hydroxyzine HCl 25 mg Oral tab 1 tab twice a day [Active]; k2 100 mcg bid [Active]; Lantus 18 U Sub-Q soln daily [Active]; lisinopril 5 mg Oral tab 1 tab once daily [Active]; lorazepam 1 mg Oral tab twice a day [Active]; Lyrica Oral 150 mg 2 times per day [Active]; metoprolol succinate 25 mg Oral Tb24 1 tab once daily [Active]; multivitamin Oral cap [Active]; Myrbetriq 25 mg Oral Tb24 1 tab once daily [Active]; nitroglycerin 0.4 mg SL subl 1 tab every 5 minutes [Active]; ondansetron HCl 8 mg Oral tab [Active]; pantoprazole 40 mg Oral TbEC 1 tab 2 times per day [Active]; Rozerem 8 mg Oral tab 1 tab bedtime [Active]; tramadol 50 mg Oral tab 1 tab three times a day [Active]; trazodone 50 mg Oral tab nightly [Active]; Vasculera 630 mg Oral tab daily [Active]; - PMHx: 18:57 Anxiety; Arthritis; Chronic pain; Depression; Diabetes - IDDM; Esophagitis; la1 Fibromyalgia; Gastroparesis; GERD; heart disease; High Cholesterol; Hypertension; Myocardial infarction; neuropathy; raynaud's; sleep disorder; Tachycardia; TBI; - Immunization history:: Adult Immunizations up to date. - Social history:: Smoking status: Patient/guardian denies using tobacco. - Ebola Screening: : No symptoms or risks identified at this time. Screenin:01 Abuse screen: Denies threats or abuse. Denies injuries from another. Nutritional cc3 screening: No deficits noted. Tuberculosis screening: No symptoms or risk factors identified. Fall Risk Ambulatory Aid- None/Bed Rest/Nurse Assist (0 pts). Gait- Normal/Bed Rest/Wheelchair (0 pts) Mental Status- Oriented to own ability (0 pts). Assessment: 19:01 General: Appears in no apparent distress. uncomfortable, Behavior is calm, cooperative, cc3 appropriate for age. Pain: Complains of pain in left lateral anterior chest Pain does not radiate. Pain began 1 day ago. Neuro: Level of Consciousness is awake, alert, obeys commands, Oriented to person, place, time, situation, Appropriate for age. Cardiovascular: Capillary refill < 3 seconds Patient's skin is warm and dry. Respiratory: Airway is patent Respiratory effort is even, unlabored, Respiratory pattern is regular, symmetrical. GI: Abdomen is round non-distended. : No signs and/or symptoms were reported regarding the genitourinary system. EENT: No signs and/or symptoms were reported regarding the EENT system. Derm: Skin is intact, is healthy with good turgor, Skin is pink, warm \T\ dry. normal. Musculoskeletal: Circulation, motion, and sensation intact. Range of motion: intact in all extremities. 20:18 Reassessment: Patient appears in no apparent distress at this time. Patient and/or cc3 family updated on plan of care and expected duration. Pain level reassessed. Patient is alert, oriented x 3, equal unlabored respirations, skin warm/dry/pink. 21:30 Reassessment: Patient appears in no apparent distress at this time. Patient and/or cc3 family updated on plan of care and expected duration. Pain level reassessed. Patient is alert, oriented x 3, equal unlabored respirations, skin warm/dry/pink. YUE Garrison discharged the patient home, no prescriptions given. MARTÍNEZ [place] removed the IV cannula of the patient and gave the discharge papers. Patient left ER vitally stable and ambulatory. No valuables left in the patient's room. Patient denies pain at this time. Patient states feeling better. Patient states symptoms have improved. Vital Signs: 18:57 BP 105 / 81; Pulse 105; Resp 16; Temp 98.6; Pulse Ox 98% on R/A; Weight 83.01 kg; la1 Height 5 ft. 4 in. (162.56 cm); 19:15 BP 109 / 49; Pulse 94; Resp 16 S; Pulse Ox 98% on R/A; cc3 20:12 BP 125 / 51; Pulse 93; Resp 20 S; Pulse Ox 100% on R/A; cc3 21:20 BP 127 / 63; Pulse 90; Resp 18 S; Pulse Ox 100% on R/A; cc3 18:57 Body Mass Index 31.41 (83.01 kg, 162.56 cm) la1 ED Course: 18:52 Patient arrived in ED. mr 18:52 Fabián Guerra MD is Private Physician. mr 18:57 Triage completed. la1 18:57 Arm band placed on right wrist. la1 19:01 Rafia Mares is Primary Nurse. cc3 19:01 Leanne Garrison FNP-C is PHCP. kb 19:01 Junaid Garber MD is Attending Physician. kb 19:01 Patient has correct armband on for positive identification. Placed in gown. Bed in low cc3 position. Call light in reach. Side rails up X 1. bus driver/monitor on. Pulse ox on. NIBP on. 19:01 Patient maintains SpO2 saturation greater than 95% on room air. cc3 19:31 CT completed. Patient tolerated procedure well. Patient moved back from CT. mw3 19:35 CT Chest Wo Con In Process Unspecified. EDMS 19:40 Missed attempt(s): 20 gauge in right antecubital area. cc3 19:50 Missed attempt(s): 22 gauge in left antecubital area. cc3 20:20 Inserted saline lock: 22 gauge in right antecubital area, using aseptic technique. cc3 Blood collected. inserted by MARTÍNEZ [place]. 21:30 No provider procedures requiring assistance completed. IV discontinued, intact, cc3 bleeding controlled, No redness/swelling at site. Pressure dressing applied. Administered Medications: 20:20 Drug: fentaNYL (PF) 50 mcg Route: IVP; Site: right antecubital; cc3 21:00 Follow up: Response: No adverse reaction; Pain is decreased cc3 Point of Care Testing: Blood Glucose: 20:11 Blood Glucose: 123 mg/dL; cc3 Ranges: Outcome: 21:09 Discharge ordered by . kb 21:30 Discharged to home ambulatory. cc3 21:30 Condition: stable 21:30 Discharge instructions given to patient, Instructed on discharge instructions, follow up and referral plans. Demonstrated understanding of instructions, follow-up care. 21:35 Patient left the ED. cc3 Signatures: Dispatcher [employer] EDLeanne Golden, MINT [employer] DEPOSITOR-C MINT W[employer] DEPOSITOR-Ckb Catalina Griffin mr Aristides Mukherjee RN RN la1 Sigrid Dennis mw3 Rafia Mares cc3 Corrections: (The following items were deleted from the chart) 20:22 20:20 Missed attempt(s): 20 gauge in right antecubital area. cc3 cc3
--- NOTE | 2019-03-26 21:09 | EDPHYS ---
Physician Documentation [facility] Name: Ila Pérez Age: 53 yrs Sex: Female : 1965 Arrival Date: 03/26/2019 Time: 18:52 Bed 20 Private MD: Fabián Guerra E ED Physician Junaid Garber HPI: 03/26 21:09 This 53 yrs old Female presents to ER via Wheelchair with complaints of Chest kb Pain, High Blood Sugar. 21:09 The patient or guardian reports chest pain that is located primarily in the left kb lateral anterior chest. Onset: The symptoms/episode began/occurred 4 week(s) ago. The pain does not radiate. Associated signs and symptoms: Pertinent positives: nausea, high blood sugar, diarrhea. The chest pain is described as aching. Duration: The patient or guardian reports a single episode. Modifying factors: The symptoms are alleviated by nothing. the symptoms are aggravated by deep breath, movement. Severity of pain: At its worst the pain was moderate in the emergency department the pain is unchanged. The patient has not experienced similar symptoms in the past. The patient has been recently seen by a physician: the ER physician, out of Town, 4 week(s) ago. Pt reports she fell 4 weeks ago and was diagnosed with rib fractures. States the pain has continued to left lateral chest from fractures and she was concerned that she reinjured them. Also reports BGL has been in the 500s today, diarrhea for the past 6 hours and nausea. . Historical: - Allergies: 18:57 Gluten Protein; la1 - Home Meds: 19:10 Albuterol Inhl [Active]; aspirin 81 mg Oral chew 1 tab once daily [Active]; benzonatate cc3 100 mg Oral cap 1 cap twice a day [Active]; bupropion HCl 150 mg Oral TbER once daily [Active]; Carafate 100 mg/mL Oral susp 10 mL three times a day [Active]; cholestopl 1 mg twice a day [Active]; Cinnamon 500 mg Oral cap 2 cap daily [Active]; Claritin 10 mg Oral tab 1 tab once daily [Active]; cyclobenzaprine 10 mg Oral tab twice a day [Active]; D3 2000 IU 2 per day [Active]; diphenoxylate-atropine 2.5-0.025 mg Oral tab 1-2 tablets every 6 hours [Active]; duloxetine 60 mg Oral cpDR 2 caps once daily [Active]; ferrous sulfate 325 mg (65 mg iron) Oral TbEC twice a day [Active]; furosemide 20 mg Oral tab one to two tabs every morning [Active]; Gink[place] 120 mg daily [Active]; Glucagon Emergency Kit (human) 1 mg IM kit 1 mL [Active]; Glucosamine Oral [Active]; Humalog 100 unit/mL Sub-Q soln [Active]; hydroxyzine HCl 25 mg Oral tab 1 tab twice a day [Active]; k2 100 mcg bid [Active]; Lantus 18 U Sub-Q soln daily [Active]; lisinopril 5 mg Oral tab 1 tab once daily [Active]; lorazepam 1 mg Oral tab twice a day [Active]; Lyrica Oral 150 mg 2 times per day [Active]; metoprolol succinate 25 mg Oral Tb24 1 tab once daily [Active]; multivitamin Oral cap [Active]; Myrbetriq 25 mg Oral Tb24 1 tab once daily [Active]; nitroglycerin 0.4 mg SL subl 1 tab every 5 minutes [Active]; ondansetron HCl 8 mg Oral tab [Active]; pantoprazole 40 mg Oral TbEC 1 tab 2 times per day [Active]; Rozerem 8 mg Oral tab 1 tab bedtime [Active]; tramadol 50 mg Oral tab 1 tab three times a day [Active]; trazodone 50 mg Oral tab nightly [Active]; Vasculera 630 mg Oral tab daily [Active]; - PMHx: 18:57 Anxiety; Arthritis; Chronic pain; Depression; Diabetes - IDDM; Esophagitis; la1 Fibromyalgia; Gastroparesis; GERD; heart disease; High Cholesterol; Hypertension; Myocardial infarction; neuropathy; raynaud's; sleep disorder; Tachycardia; TBI; - Immunization history:: Adult Immunizations up to date. - Social history:: Smoking status: Patient/guardian denies using tobacco. - Ebola Screening: : No symptoms or risks identified at this time. ROS: 21:11 Constitutional: Negative for fever, chills, and weight loss, ENT: Negative for injury, kb pain, and discharge, Neck: Negative for injury, pain, and swelling, Respiratory: Negative for shortness of breath, cough, wheezing, and pleuritic chest pain, Back: Negative for injury and pain, : Negative for injury, bleeding, discharge, and swelling, MS/Extremity: Negative for injury and deformity, Skin: Negative for injury, rash, and discoloration, Neuro: Negative for headache, weakness, numbness, tingling, and seizure. 21:11 Cardiovascular: Positive for chest pain, with cough, with movement, of the left lateral anterior chest, Negative for edema, orthopnea, palpitations, paroxysmal nocturnal dyspnea. 21:11 Abdomen/GI: Positive for nausea, diarrhea. Exam: 21:11 Constitutional: This is a well developed, well nourished patient who is awake, alert, kb and in no acute distress. Head/Face: Normocephalic, atraumatic. Neck: Trachea midline, no thyromegaly or masses palpated, and no cervical lymphadenopathy. Supple, full range of motion without nuchal rigidity, or vertebral point tenderness. No Meningismus. Chest/axilla: Normal chest wall appearance and motion. Nontender with no deformity. No lesions are appreciated. Cardiovascular: Regular rate and rhythm with a normal S1 and S2. No gallops, murmurs, or rubs. Normal PMI, no JVD. No pulse deficits. Respiratory: Lungs have equal breath sounds bilaterally, clear to auscultation and percussion. No rales, rhonchi or wheezes noted. No increased work of breathing, no retractions or nasal flaring. Back: No spinal tenderness. No costovertebral tenderness. Full range of motion. Skin: Warm, dry with normal turgor. Normal color with no rashes, no lesions, and no evidence of cellulitis. MS/ Extremity: Pulses equal, no cyanosis. Neurovascular intact. Full, normal range of motion. Neuro: Awake and alert, GCS 15, oriented to person, place, time, and situation. Cranial nerves II-XII grossly intact. Motor strength 5/5 in all extremities. Sensory grossly intact. Cerebellar exam normal. Normal gait. 21:11 Abdomen/GI: Inspection: abdomen appears normal, Bowel sounds: normal, in all quadrants, Palpation: soft, in all quadrants, mild abdominal tenderness, in all quadrants. Vital Signs: 18:57 BP 105 / 81; Pulse 105; Resp 16; Temp 98.6; Pulse Ox 98% on R/A; Weight 83.01 kg; la1 Height 5 ft. 4 in. (162.56 cm); 19:15 BP 109 / 49; Pulse 94; Resp 16 S; Pulse Ox 98% on R/A; cc3 20:12 BP 125 / 51; Pulse 93; Resp 20 S; Pulse Ox 100% on R/A; cc3 21:20 BP 127 / 63; Pulse 90; Resp 18 S; Pulse Ox 100% on R/A; cc3 18:57 Body Mass Index 31.41 (83.01 kg, 162.56 cm) la1 MDM: 19:01 Patient medically screened. kb 21:11 Data reviewed: vital signs, nurses notes. Data interpreted: Pulse oximetry: on room air kb is 100 %. Interpretation: normal. Counseling: I had a detailed discussion with the patient and/or guardian regarding: the historical points, exam findings, and any diagnostic results supporting the discharge/admit diagnosis, lab results, radiology results, the need for outpatient follow up, a family practitioner, to return to the emergency department if symptoms worsen or persist or if there are any questions or concerns that arise at home. 03/26 19:07 Order name: Lipase kb 03/26 19:07 Order name: Hepatic Function; Complete Time: 20:56 kb 03/26 19:07 Order name: Basic Metabolic Panel; Complete Time: 20:56 kb 03/26 19:07 Order name: CBC with Diff; Complete Time: 20:56 kb 03/26 19:07 Order name: Troponin (emerg Dept Use Only); Complete Time: 20:56 kb 03/26 19:07 Order name: Acetone, Serum; Complete Time: 20:56 kb 03/26 19:07 Order name: IV Saline Lock; Complete Time: 20:22 kb 03/26 19:07 Order name: Labs collected and sent; Complete Time: 20:22 kb 03/26 19:07 Order name: EKG; Complete Time: 19:09 kb 03/26 19:07 Order name: EKG - Nurse/Tech; Complete Time: 19:17 kb 03/26 19:07 Order name: CT Chest Wo Con; Complete Time: 19:55 kb 03/26 19:08 Order name: Lipase; Complete Time: 20:56 EDMS 03/26 19:14 Order name: Blood Glucose Level; Complete Time: 20:21 kb Administered Medications: 20:20 Drug: fentaNYL (PF) 50 mcg Route: IVP; Site: right antecubital; cc3 21:00 Follow up: Response: No adverse reaction; Pain is decreased cc3 Point of Care Testing: Blood Glucose: 20:11 Blood Glucose: 123 mg/dL; cc3 Ranges: Critical Glucose Levels:Adult <50 mg/dl or >400 mg/dl <40 mg/dl or >180 mg/dl Disposition: 03/26/19 21:09 Discharged to Home. Impression: Multiple fractures of ribs, left side - healing, subacute, Diarrhea, unspecified. - Condition is Stable. - Discharge Instructions: Food Choices to Help Relieve Diarrhea, Adult, Diarrhea, Adult, [id number], Rib Fracture, [id number]. - Medication Reconciliation Form, Thank You Letter, Antibiotic Education, Prescription Opioid Use form. - Follow up: Private Physician; When: 2 - 3 days; Reason: Recheck today's complaints, Continuance of care, Re-evaluation by your physician. Follow up: Emergency Department; When: As needed; Reason: Worsening of condition. Signatures: Dispatcher [employer] EDNJ Leanne Garrison, DISEASE AND INSECT CONTROL BOSS-C DISEASE AND INSECT CONTROL BOSS-Ckb Aristides Mukherjee RN RN la1 Rafia Mares cc3 Corrections: (The following items were deleted from the chart) 21:35 21:09 03/26/2019 21:09 Discharged to Home. Impression: Multiple fractures of ribs, left cc3 side - healing, subacute; Diarrhea, unspecified. Condition is Stable. Forms are Medication Reconciliation Form, Thank You Letter, Antibiotic Education, Prescription Opioid Use. Follow up: Private Physician; When: 2 - 3 days; Reason: Recheck today's complaints, Continuance of care, Re-evaluation by your physician. Follow up: Emergency Department; When: As needed; Reason: Worsening of condition. kb
[2019-03-26 21:58] VITALS: TEMP 98.6
[2019-03-26 21:59] VITALS: BP 125/51; O2SAT 100
--- NOTE | 2019-03-27 10:18 | EKG ---
Test Date: 2019-03-26 Test Time: 19:11:40 Char Filter Operator: PABLO MEASUREMENT RESULTS: Intervals: Rate: 95 MT: 132 QRSD: 76 QT: 346 QTc: 434 [place]: P: 9 MT: 132 QRS: 53 T: 36 INTERPRETIVE STATEMENTS: Normal sinus rhythm Cannot rule out Anterior infarct, age undetermined Abnormal ECG Compared to ECG 02/25/2019 08:31:44 Myocardial infarct finding now present Sinus tachycardia no longer present Electronically Signed On 03-27-19 10:18:57 CDT by Cassius Perea
== END 2019-03-26 21:35 | disposition home or self-care (01) ==
LOC: ER 18:50
DX: S22.42XD Multiple fractures of ribs, left side, subsequent encounter for fracture with routine healing (principal); W19.XXXD Unspecified fall, subsequent encounter; R19.7 Diarrhea, unspecified; F41.9 Anxiety disorder, unspecified; F32.9 Major depressive disorder, single episode, unspecified; K21.9 Gastro-esophageal reflux disease without esophagitis; I25.2 Old myocardial infarction; E11.9 Type 2 diabetes mellitus without complications; E78.00 Pure hypercholesterolemia, unspecified; I10 Essential (primary) hypertension; Z91.018 Allergy to other foods; Z79.82 Long term (current) use of aspirin; Z79.4 Long term (current) use of insulin
CPT/HCPCS: 93005; 85025; 80048; 36415; 82010; 82962; 80076; 84484; 83690; 71250; 96374; 99285; J3010

== ENCOUNTER 2019-04-23 02:13 | Emergency (ER) | payer OTHER ==
--- OUTSIDE RECORDS SUMMARY | 2019-04-23 02:18 | XMS REPORT | Clinical Summary ---
:1965 Author Organization [facility] Address [address] [place] [address] Care Team Providers Name Role Phone Fabián [...] Hospital 05/24/2018 Hospital Encounter Pre-Admission Testing Resource, [facility] Preadmit Phone after 04/22/2018 Social History Tobacco Use Types Packs/Day Years [...] procedure are in the results section. after 04/22/2018 Results POC-Glucose meter (05/31/2018 2:40 PM CDT)Only the most recent of2 resultswithin the time period is included. POC-Glucose Meter 211 (H)Comment: TESTED AT 70 - 110 mg/dL [facility] [address] [facility] [place] [id number] Specimen Blood Performing Organization Address City/State/Zipcode Phone Number [facility] [address] [place] [address] CENTER REPORT OF PROCEDURE - ENDOSCOPY URL (05/31/2018 2:37 PM CDT) Narrative Performed At after 04/22/2018 Insurance Payer Benefit Plan / Group Subscriber ID Type Phone Address [facility] - MEDICARE AARP/MEDICARE COMPLETE xxxxxxxxx [facility] Advance Directives For more information, please contact:[address] [phone] Code Status Date Activated Date Inactivated Comments Full Code 06/25/2017 10:56 AM 06/25/2017 5:59 PM This code status was determined by: Patient
[2019-04-23] MEDS ORDERED: KETOROLAC 30 MG/ML INJ ONE (02:49)
--- NOTE | 2019-04-23 03:01 | ER ---
Nurse's Notes [facility] Name: Ila Pérez Age: 53 yrs Sex: Female : 1965 Arrival Date: 04/23/2019 Time: 02:18 Bed 8 Private MD: Axel Medina Diagnosis: Myalgia Presentation: 04/23 02:15 Presenting complaint: Patient states: that she is having leg cramping (left worse than fc right). Also having left hip pain. All started 2 days ago. But then her left shoulder blade has been hurting since her fall 6 weeks ago where she broke some left ribs. Transition of care: patient was not received from another setting of care. Onset of symptoms was April 21, 2019. Risk Assessment: Do you want to hurt yourself or someone else? Patient reports no desire to harm self or others. Initial Sepsis Screen: Does the patient meet any 2 criteria? No. Patient's initial sepsis screen is negative. Does the patient have a suspected source of infection? No. Patient's initial sepsis screen is negative. Care prior to arrival: Medication(s) given: [place]. 02:15 Method Of Arrival: Wheelchair 02:15 Acuity: DEVONTE 4 fc Historical: - Allergies: 02:46 Gluten Protein; fc - Home Meds: 02:46 Albuterol Inhl [Active]; benzonatate 100 mg Oral cap 1 cap twice a day [Active]; fc aspirin 81 mg Oral chew 1 tab once daily [Active]; Carafate 100 mg/mL Oral susp 10 mL three times a day [Active]; bupropion HCl 150 mg Oral TbER once daily [Active]; cholestopl 1 mg twice a day [Active]; Cinnamon 500 mg Oral cap 2 cap daily [Active]; cyclobenzaprine 10 mg Oral tab twice a day [Active]; Claritin 10 mg Oral tab 1 tab once daily [Active]; D3 2000 IU 2 per day [Active]; diphenoxylate-atropine 2.5-0.025 mg Oral tab 1-2 tablets every 6 hours [Active]; duloxetine 60 mg Oral cpDR 2 caps once daily [Active]; ferrous sulfate 325 mg (65 mg iron) Oral TbEC twice a day [Active]; Ginko [place] 120 mg daily [Active]; furosemide 20 mg Oral tab one to two tabs every morning [Active]; Glucagon Emergency Kit (human) 1 mg IM kit 1 mL [Active]; Glucosamine Oral [Active]; Humalog 100 unit/mL Sub-Q soln [Active]; hydroxyzine HCl 25 mg Oral tab 1 tab twice a day [Active]; k2 100 mcg bid [Active]; Lantus 18 U Sub-Q soln daily [Active]; lisinopril 5 mg Oral tab 1 tab once daily [Active]; lorazepam 1 mg Oral tab twice a day [Active]; Lyrica Oral 150 mg 2 times per day [Active]; metoprolol succinate 25 mg Oral Tb24 1 tab once daily [Active]; multivitamin Oral cap [Active]; Myrbetriq 25 mg Oral Tb24 1 tab once daily [Active]; nitroglycerin 0.4 mg SL subl 1 tab every 5 minutes [Active]; ondansetron HCl 8 mg Oral tab [Active]; pantoprazole 40 mg Oral TbEC 1 tab 2 times per day [Active]; Rozerem 8 mg Oral tab 1 tab bedtime [Active]; tramadol 50 mg Oral tab 1 tab three times a day [Active]; trazodone 50 mg Oral tab nightly [Active]; Vasculera 630 mg Oral tab daily [Active]; - PMHx: 02:46 Anxiety; Chronic pain; Depression; Esophagitis; Fibromyalgia; Gastroparesis; GERD; fc heart disease; High Cholesterol; Hypertension; Myocardial infarction; neuropathy; raynaud's; sleep disorder; Diabetes - IDDM; Arthritis; Tachycardia; TBI; - Immunization history:: Last tetanus immunization: up to date. - Social history:: Smoking status: Patient uses tobacco products, smokes one-half pack cigarettes per day, Patient/guardian denies using alcohol, street drugs. - Ebola Screening: : Patient negative for fever greater than or equal to 101.5 degrees Fahrenheit, and additional compatible Ebola Virus Disease symptoms Patient denies exposure to infectious person Patient denies travel to an Ebola-affected area in the 21 days before illness onset. Screenin:15 Abuse screen: Denies threats or abuse. Nutritional screening: No deficits noted. fc Tuberculosis screening: No symptoms or risk factors identified. Fall Risk Fall in past 12 months (25 points). Secondary diagnosis (15 points) impaired mobility, No IV (0 pts). Ambulatory Aid- None/Bed Rest/Nurse Assist (0 pts). Gait- Weak (10 pts.). Mental Status- Overestimates/Forgets Limitations (15 pts.). Total Esteban Fall Scale indicates High Risk Score (45 or more points). Fall prevention measures have been instituted. Side Rails Up X 2 Placed Close to Nursing Station Frequent Obs/Assessments Occuring As available patient and family educated on Fall Prevention Program and Strategies. Assessment: 02:40 General: Appears in no apparent distress. Behavior is calm, cooperative, appropriate ea for age. Pain: Complains of pain in posterior chest, back of left leg, back of right leg and back. Neuro: Level of Consciousness is awake, alert, obeys commands, Oriented to person, place, time, situation. Cardiovascular: Patient's skin is warm and dry. Respiratory: Airway is patent Respiratory effort is even, unlabored, Respiratory pattern is regular, symmetrical. Derm: Skin is pink, warm \T\ dry. Musculoskeletal: Circulation, motion, and sensation intact. 03:17 Reassessment: Patient and/or family updated on plan of care and expected duration. Pain ea level reassessed. Patient is alert, oriented x 3, equal unlabored respirations, skin warm/dry/pink. Discharge instruction given to patient, verbalized the understanding of instruction. Pt left ED ambulatory, tolerating well. Vital Signs: 02:15 BP 142 / 73; Pulse 89; Resp 18; Temp 97.5(O); Pulse Ox 100% on R/A; Weight 83.01 kg fc (R); Height 5 ft. 4 in. (162.56 cm) (R); Pain 7/10; 03:00 BP 149 / 70; Pulse 60; Resp 18; Pulse Ox 98% on R/A; ea 02:15 Body Mass Index 31.41 (83.01 kg, 162.56 cm) fc ED Course: 02:15 Arm band placed on Patient placed in an exam room, on a stretcher. fc 02:15 Patient has correct armband on for positive identification. Bed in low position. Call fc light in reach. 02:15 No provider procedures requiring assistance completed. Patient did not have IV access fc during this emergency room visit. 02:18 Patient arrived in ED. es 02:18 Axel Medina DO is Private Physician. es 02:41 Kyle Magana MD is Attending Physician. tw4 02:43 Triage completed. 02:43 Delmis Rosales, RN is Primary Nurse. ea 02:59 Axel Medina DO is Referral Physician. tw4 Administered Medications: 02:53 Drug: TORadol 60 mg Route: IM; Site: left gluteus; ea 03:16 Follow up: Response: No adverse reaction ea Outcome: 03:00 Discharge ordered by . tw4 03:18 Discharged to home ambulatory. ea 03:18 Condition: stable 03:18 Discharge instructions given to patient, Instructed on discharge instructions, follow up and referral plans. medication usage, Demonstrated understanding of instructions, follow-up care, medications, Prescriptions given X 1. 03:19 Patient left the ED. ea Signatures: Nanette An Felicia, RN RN Delmis Rosales, RN Kyle Li ea, MD MD tw4
--- NOTE | 2019-04-23 03:02 | EDPHYS ---
Physician Documentation [facility] Name: Ila Pérez Age: 53 yrs Sex: Female : 1965 Arrival Date: 04/23/2019 Time: 02:18 Bed 8 Private MD: Axel Medina ED Physician Kyle Magana HPI: 04/23 06:03 This 53 yrs old Female presents to ER via Wheelchair with complaints of tw4 shoulder,back,hip, and leg pain. 06:03 The patient presents with pain, that is chronic. The complaints affect the lateral tw4 aspect of left thigh, left hamstring, medial aspect of left thigh and left quadriceps, lateral aspect of right thigh, right hamstring, medial aspect of right thigh and right quadriceps. Context: The problem was sustained at home, resulted from a chronic condition. Onset: The symptoms/episode began/occurred today. Modifying factors: The symptoms are alleviated by nothing. the symptoms are aggravated by nothing. Severity of symptoms: At their worst the symptoms were moderate, in the emergency department the symptoms are unchanged. Historical: - Allergies: 02:46 Gluten Protein; fc - Home Meds: 02:46 Albuterol Inhl [Active]; benzonatate 100 mg Oral cap 1 cap twice a day [Active]; fc aspirin 81 mg Oral chew 1 tab once daily [Active]; Carafate 100 mg/mL Oral susp 10 mL three times a day [Active]; bupropion HCl 150 mg Oral TbER once daily [Active]; cholestopl 1 mg twice a day [Active]; Cinnamon 500 mg Oral cap 2 cap daily [Active]; cyclobenzaprine 10 mg Oral tab twice a day [Active]; Claritin 10 mg Oral tab 1 tab once daily [Active]; D3 2000 IU 2 per day [Active]; diphenoxylate-atropine 2.5-0.025 mg Oral tab 1-2 tablets every 6 hours [Active]; duloxetine 60 mg Oral cpDR 2 caps once daily [Active]; ferrous sulfate 325 mg (65 mg iron) Oral TbEC twice a day [Active]; [place] 120 mg daily [Active]; furosemide 20 mg Oral tab one to two tabs every morning [Active]; Glucagon Emergency Kit (human) 1 mg IM kit 1 mL [Active]; Glucosamine Oral [Active]; Humalog 100 unit/mL Sub-Q soln [Active]; hydroxyzine HCl 25 mg Oral tab 1 tab twice a day [Active]; k2 100 mcg bid [Active]; Lantus 18 U Sub-Q soln daily [Active]; lisinopril 5 mg Oral tab 1 tab once daily [Active]; lorazepam 1 mg Oral tab twice a day [Active]; Lyrica Oral 150 mg 2 times per day [Active]; metoprolol succinate 25 mg Oral Tb24 1 tab once daily [Active]; multivitamin Oral cap [Active]; Myrbetriq 25 mg Oral Tb24 1 tab once daily [Active]; nitroglycerin 0.4 mg SL subl 1 tab every 5 minutes [Active]; ondansetron HCl 8 mg Oral tab [Active]; pantoprazole 40 mg Oral TbEC 1 tab 2 times per day [Active]; Rozerem 8 mg Oral tab 1 tab bedtime [Active]; tramadol 50 mg Oral tab 1 tab three times a day [Active]; trazodone 50 mg Oral tab nightly [Active]; Vasculera 630 mg Oral tab daily [Active]; - PMHx: 02:46 Anxiety; Chronic pain; Depression; Esophagitis; Fibromyalgia; Gastroparesis; GERD; fc heart disease; High Cholesterol; Hypertension; Myocardial infarction; neuropathy; raynaud's; sleep disorder; Diabetes - IDDM; Arthritis; Tachycardia; TBI; - Immunization history:: Last tetanus immunization: up to date. - Social history:: Smoking status: Patient uses tobacco products, smokes one-half pack cigarettes per day, Patient/guardian denies using alcohol, street drugs. - Ebola Screening: : Patient negative for fever greater than or equal to 101.5 degrees Fahrenheit, and additional compatible Ebola Virus Disease symptoms Patient denies exposure to infectious person Patient denies travel to an Ebola-affected area in the 21 days before illness onset. ROS: 06:03 Constitutional: Negative for fever, chills, and weight loss, Eyes: Negative for injury, tw4 pain, redness, and discharge, Cardiovascular: Negative for chest pain, palpitations, and edema, Respiratory: Negative for shortness of breath, cough, wheezing, and pleuritic chest pain, Abdomen/GI: Negative for abdominal pain, nausea, vomiting, diarrhea, and constipation, Back: Negative for injury and pain, Neuro: Negative for headache, weakness, numbness, tingling, and seizure. 06:03 MS/extremity: Positive for pain. Exam: 06:03 Constitutional: This is a well developed, well nourished patient who is awake, alert, tw4 and in no acute distress. Head/Face: Normocephalic, atraumatic. Chest/axilla: Normal chest wall appearance and motion. Nontender with no deformity. No lesions are appreciated. Cardiovascular: Regular rate and rhythm with a normal S1 and S2. No gallops, murmurs, or rubs. Normal PMI, no JVD. No pulse deficits. Respiratory: Lungs have equal breath sounds bilaterally, clear to auscultation and percussion. No rales, rhonchi or wheezes noted. No increased work of breathing, no retractions or nasal flaring. Abdomen/GI: Soft, non-tender, with normal bowel sounds. No distension or tympany. No guarding or rebound. No evidence of tenderness throughout. Back: No spinal tenderness. No costovertebral tenderness. Full range of motion. Neuro: Awake and alert, GCS 15, oriented to person, place, time, and situation. Cranial nerves II-XII grossly intact. Motor strength 5/5 in all extremities. Sensory grossly intact. Cerebellar exam normal. Normal gait. Vital Signs: 02:15 BP 142 / 73; Pulse 89; Resp 18; Temp 97.5(O); Pulse Ox 100% on R/A; Weight 83.01 kg fc (R); Height 5 ft. 4 in. (162.56 cm) (R); Pain 7/10; 03:00 BP 149 / 70; Pulse 60; Resp 18; Pulse Ox 98% on R/A; ea 02:15 Body Mass Index 31.41 (83.01 kg, 162.56 cm) fc MDM: 02:41 Patient medically screened. tw4 06:05 Differential diagnosis: dislocation, open fracture. Data reviewed: vital signs, nurses tw4 notes. Data interpreted: Pulse oximetry: Interpretation: normal. Counseling: I had a detailed discussion with the patient and/or guardian regarding: the historical points, exam findings, and any diagnostic results supporting the discharge/admit diagnosis. Administered Medications: 02:53 Drug: TORadol 60 mg Route: IM; Site: left gluteus; ea 03:16 Follow up: Response: No adverse reaction ea Disposition: 04/23/19 03:00 Discharged to Home. Impression: Myalgia. - Condition is Stable. - Discharge Instructions: Musculoskeletal Pain, Muscle Pain, Adult. - Prescriptions for Ibuprofen 800 mg Oral Tablet - take 1 tablet by ORAL route every 8 hours As needed take with food; 30 tablet. - Medication Reconciliation Form, Thank You Letter, Antibiotic Education, Prescription Opioid Use form. - Follow up: Axel Medina DO; When: Upon discharge from the Emergency Department; Reason: If symptoms return, Recheck today's complaints, Continuance of care. - Problem is new. - Symptoms have improved. Signatures: Nora Morales RN RN Delmis Padgett RN RN ea Wadley, Terrence, MD MD tw4 Corrections: (The following items were deleted from the chart) 03:19 03:00 04/23/2019 03:00 Discharged to Home. Impression: Myalgia. Condition is Stable. ea Forms are Medication Reconciliation Form, Thank You Letter, Antibiotic Education, Prescription Opioid Use. Follow up: Axel Medina; When: Upon discharge from the Emergency Department; Reason: If symptoms return, Recheck today's complaints, Continuance of care. Problem is new. Symptoms have improved. tw4
--- OUTSIDE RECORDS SUMMARY | 2019-04-23 03:15 | XMS REPORT | Continuity of Care Document ---
:1965 Author Organization [employer] Care Team Providers Name Role Phone [employer] Unavailable Unavailable Problems Problem Status Onset Classification Date Comments Source Date Reported PAIN IN Active 08/13/20 [facility] ABDOMEN/NAUSEA/TI Medical GHTENESS IN [facility] Center BDDC/GASTROESOPHA Active 07/24/20 [facility] GEAL REFLUX [address] [place] [address] DISEASE Center VOMITING Active 07/11/[address] Center GASTROPARESIS Active 07/11/[address] CHEST PAIN Active 04/02/[address] Center R/O ACS Active 04/02/[address] SOB/CHEST PAIN Active 03/06/[address] Center HYPERGLYCEMIA Active 03/06/20 [facility] DEHYDRATION [address] [place] [address] GASTROPARESIS Center NASEAU Active 01/11/[address] Center VOMITTING, Active 11/29/19 [facility] DIABETIC, HEART Medical PT Center N/V Active 11/29/[address] Center ACS R/O AND Active 11/17/19 [facility] PERSISTANT N/V [address] [place] [address] Center NAUSEA, VOMITTING Active 11/17/[address] Center MRSA1, 2 Active 10/23/19 Problem 11/19/2012 1nares 10/23/2012 [place] [address] 2Problem added by Discern Expert. [facility] Center MRSA1, 2, 3, 4 Active 10/23/19 Problem 08/15/2013 - Nares [place] [address] - [facility] Medical 3nares 10/23/2012 Center 4Problem added by Discern Expert. MRSA1, 2, 3, 4 Active 10/23/19 Problem 04/05/2013 - Nares [place] [address] - [facility] Medical 3nares 10/23/2012 Center 4Problem added by Discern Expert. 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/16/20 Problem 08/15/2013 [facility] infarction [address] [place] [address] [place] - Myocardial Resolved 10/22/19 Problem 04/05/[address] DSU/ REFLUX Active 06/13/[address] MORBID OBESITY Active 01/19/[address] Acid reflux Resolved Problem 04/05/2013 [facility] Anemia Resolved Problem 04/05/2013 [facility] Anxiety Resolved Problem 04/05/2013 [facility] Arthritis Resolved Problem 04/05/2013 [facility] Depression Resolved Problem 04/05/2013 [facility] Diabetes mellitus Resolved Problem 04/05/[address] Edema of lower Resolved Problem 04/05/2013 [facility] Fibromyalgia Resolved Problem 04/05/2013 [facility] Hyperlipidemia Resolved Problem 04/05/2013 [facility] Hypertension Resolved Problem 04/05/2013 [facility] Acid reflux Resolved Problem 08/15/2013 [facility] Anemia Resolved Problem 08/15/2013 [facility] Anxiety Resolved Problem 08/15/2013 [facility] Arthritis Resolved Problem 08/15/2013 [facility] Depression Resolved Problem 08/15/2013 [facility] Diabetes mellitus Resolved Problem 08/15/[address] Edema of lower Resolved Problem 08/15/2013 [facility] Fibromyalgia Resolved Problem 08/15/2013 [facility] Gastric ulcer Resolved Problem 08/15/2013 [facility] Hyperlipidemia Resolved Problem 08/15/2013 [facility] Hypertension Resolved Problem 08/15/2013 [facility] Neuropathy Resolved Problem 08/15/2013 [facility] Gastric ulcer Resolved Problem 04/05/2013 [facility] Neuropathy Resolved Problem 04/05/2013 [facility] MORBID OBESITY Active [facility] NAUSEA WITH Active [facility] VOMITING [facility] CHEST PAIN NOS Active [facility] OTHER GENERAL Active [facility] SYMPTOMS [facility] Medications Medication Details Route Status Patient Ordering Order Source Instructions Provider Date Zofran 4 mg 4 mg=1 tab, PO, Active De La Garza 08/13/ [facility] oral tablet BID, # 10 tab, 0 2012 Medical Refill(s) Center Reglan 10 mg 10 mg=1 tab, PO, Active De La Garza 08/13/ [facility] oral tablet QID, # 40 tab, 0 2012 Medical Refill(s) Center IDS med 5 mg, 1 mL, Inactive Ruggiero 08/13/ [facility] Rate: 30 ml/hr, 2012 Medical Infuse over: 2 Center minutes, Route: IV, Total Volume: 1, Stop date: 08/13/13 16:00:00 NS (Bolus) IV 1,000 mL, Rate: Inactive De La Garza [facility] 1,000 mL 1,000 ml/hr, 2012 Medical Infuse over: 1 Center hr, Route: IV, Dosing Weight 81.818 kg, Total Volume: 1,000, Priority: STAT, Start date: 08/13/13 13:56:00, Duration: 1 doses or times, Stop date: 08/13/13 14:55:00, Bolus DoseBolus Dose Phenergan 25 mg, 1 mL, Inactive De La Garza [facility] Route: IVPB, 2012 Medical Drug form: INJ, Center ONCE, Dosing Weight 81.818, kg, Priority: STAT, Start date: 08/13/13 13:17:00, Stop date: 08/13/13 13:17:00Do not give IV push. (Same as: Phenergan) Zofran 4 mg, 2 mL, Inactive De La Garza [facility] Route: IVP, Drug 2012 Medical form: INJ, ONCE, Center Dosing Weight 81.818, kg, Priority: STAT, Start date: 08/13/13 12:41:00, Stop date: 08/13/13 12:41:00(Same as: Zofran) morphine 4 mg, 1 mL, Inactive De La Garza [facility] Sulfate Route: IVP, Drug 2012 Medical form: INJ, ONCE, Center Dosing Weight 81.818, kg, Priority: STAT, Start date: 08/13/13 12:40:00, Stop date: 08/13/13 12:40:00(Same as:MORPhine Sulfate) Sodium Chloride 1,000 mL, Rate: Inactive [facility] 0.9% (Bolus) IV 1,000 ml/hr, 2012 Medical 1,000 mL Infuse over: 1 Center hr, Route: IV, Dosing Weight 81.818 kg, Total Volume: 1,000, Priority: STAT, Start date: 08/13/13 11:52:00, Duration: 1 doses or times, Stop date: 08/13/13 12:51:00, Bolus DoseBolus Dose normal saline 1,000 mL, Rate: Inactive [facility] 0.9% IV 1,000 500 ml/hr, 2012 Medical mL Infuse over: 2 Center hr, Route: IV, Dosing Weight 86.364 kg, Total Volume: 1,000, Start date: 07/14/13 14:02:00, Duration: 4 hr, Stop date: 07/14/13 18:01:00 Reglan 10 mg 10 mg, 1 tab, Inactive [facility] oral tablet Route: PO, Drug 2012 Medical form: TAB, Center TID-Before Meals, Dosing Weight 86.364, kg, Start date: 07/14/13 11:30:00, Duration: 30 day, Stop date: 08/13/13 7:30:00(Same as: Reglan) Take 30 min before meals Levemir 15 unit, 0.15 No Longer [facility] mL, Route: Active 2012 Medical SUB-Q, Drug Center form: INJ, BID, Dosing Weight 86.364, kg, Start date: 07/13/13 21:00:00, Duration: 30 day, Stop date: 08/12/13 9:00:00Same as Levemir "single patient use only" pneumococcal 0.5 ml, Route: No Longer [facility] 23-valent IM, Drug Form: Active 2012 Medical vaccine INJ, Start date: [place] 07/13/13 9:00:00, Stop date: 07/13/13 9:00:00 influenza virus 0.5 ml, Route: No Longer [facility] vaccine, IM, Drug Form: Active 2012 Medical inactivated SUSP, Start Center date: 07/13/13 9:00:00, Stop date: 07/13/13 9:00:00 lisinopril 20 mg, 1 tab, No Longer [facility] Route: PO, Drug Active 2012 Medical form: TAB, Center Daily, Dosing Weight 86.364, kg, Start date: 07/13/13 9:00:00, Duration: 30 day, Stop date: 08/11/13 9:00:00(Same as: Prinivil, Zestril) metoprolol 50 mg, Route: No Longer [facility] tartrate PO, Drug form: Active 2012 Medical TAB, Daily, Center Dosing Weight 86.364, kg, Start date: 07/13/13 9:00:00, Duration: 30 day, Stop date: 08/11/13 9:00:00 Lyrica 150 mg, 2 cap, No Longer [facility] [place] Route: PO, Drug Active 2012 Medical form: CAP, BID, Center Dosing Weight 86.364, kg, Start date: 07/13/13 9:00:00, Duration: 30 day, Stop date: 08/11/13 17:00:00(Same as: Lyrica) potassium 20 mEq, 1 tab, No Longer [facility] [place] chloride Route: PO, Drug Active 2012 Medical form: ERTAB, Center Daily, Dosing Weight 86.364, kg, Start date: 07/13/13 9:00:00, Duration: 30 day, Stop date: 08/11/13 9:00:00(Same as: K-Dur 20) "Do Not Crush" With food and full glass of water Effient 10 mg, 1 tab, No Longer [facility] Route: PO, Drug Active 2012 Medical form: TAB, Center Daily, Dosing Weight 86.364, kg, Start date: 07/13/13 9:00:00, Duration: 30 day, Stop date: 08/11/13 9:00:00Same as Effient For patients 60kg, without history of TIA/Ischemic stroke and without likely bypass surgery Protonix 40 mg, 1 tab, No Longer [facility] Route: PO, Drug Active 2012 Medical form: ECTAB, Center BID-Before Meals, Dosing Weight 86.364, kg, Start date: 07/13/13 9:00:00, Stop date: 08/11/13 16:30:00Tablet should not be chewed or crushed. (Same as: Protonix) meloxicam 7.5 mg, Route: No Longer [facility] PO, Drug form: Active 2012 Medical TAB, BID, Dosing Center Weight 86.364, kg, Start date: 07/13/13 9:00:00, Duration: 30 day, Stop date: 08/11/13 17:00:00 magnesium oxide 400 mg, 1 tab, No Longer [facility] Route: PO, Drug Active 2012 Medical form: TAB, Center Daily, Dosing Weight 86.364, kg, Start date: 07/13/13 9:00:00, Duration: 30 day, Stop date: 08/11/13 9:00:00(Same as: Mag-Ox 400) Magnesium oxide [id number] elemental magnesium Dose=____mg magnesium oxide (___mg elemental magnesium) furosemide 40 40 mg, 1 tab, No Longer [facility] mg oral tablet Route: PO, Drug Active 2012 Medical form: TAB, Center Daily, Dosing Weight 86.364, kg, Start date: 07/13/13 9:00:00, Duration: 30 day, Stop date: 08/11/13 9:00:00(Same as: Lasix) May cause GI upset. Give with food or milk. ferrous sulfate 325 mg, 1 tab, No Longer [facility] Route: PO, Drug Active 2012 Medical form: ECTAB, Center TID, Dosing Weight 86.364, kg, Start date: 07/13/13 9:00:00, Duration: 30 day, Stop date: 08/11/13 17:00:00Give with food. "Do Not Crush" clonazepam 0.5 mg, 1 tab, No Longer [facility] Route: PO, Drug Active 2012 Medical form: TAB, TID, Center Dosing Weight 86.364, kg, Start date: 07/13/13 9:00:00, Duration: 30 day, Stop date: 08/11/13 17:00:00(Same As: Klonopin) Insulin regular 5 unit, 0.05 mL, No Longer [facility] Route: SUB-Q, Active 2012 Medical Drug [...] Reglan 10 mg, 2 mL, No Longer [facility] Route: IVP, Drug Active 2012 Medical form: INJ, Q6H, Center Dosing Weight 86.364, kg, Start date: 07/13/13 0:00:00, Duration: 30 day, Stop date: 08/11/13 18:00:00(Same as: Reglan) normal saline 1,000 mL, Rate: No Longer [facility] 0.9% IV 1,000 200 ml/hr, Active 2012 Medical mL Infuse over: 5 Center hr, Route: IV, Dosing Weight 86.364 kg, Total Volume: 1,000, Start date: 07/12/13 21:08:00, Duration: 3 doses or times, Stop date: 07/13/13 12:07:00 metoprolol 50 mg, 1 tab, No Longer [facility] tartrate Route: PO, Drug Active 2012 Medical form: TAB, Q12H, Center Dosing Weight 86.364, kg, Start date: 07/12/13 21:00:00, Duration: 30 day, Stop date: 08/11/13 9:00:00(Same as: Lopressor) Levemir 12 unit, 0.12 No Longer [facility] mL, Route: Active 2012 Medical SUB-Q, Drug Center form: INJ, BID, Dosing Weight 86.364, kg, Start date: 07/12/13 21:00:00, Duration: 30 day, Stop date: 08/11/13 9:00:00Same as Levemir "single patient use only" Cymbalta 120 mg, 2 cap, No Longer [facility] Route: PO, Drug Active 2012 Medical form: DRC, Center Bedtime, Dosing Weight 86.364, kg, Start date: 07/12/13 21:00:00, Duration: 30 day, Stop date: 08/10/13 21:00:00Non Formulary Drug (Same as: Cymbalta) (Do Not Crush) ProAir HFA 90 2 puff, Route: No Longer [facility] mcg/inh INHALATION, Drug Active 2012 Medical inhalation Form: AERO/A, [place] aerosol with Dosing Weight adapter 86.364, kg, QID, PRN Shortness of breath, Start date: 07/12/13 20:09:00, Duration: 30 day, Stop date: 08/11/13 20:08:00Albutero l 90 microgram/inh 8gm HFA Same as: Ventolin, Proventil aspirin 81 mg 81 mg, 1 tab, No Longer [facility] tablet, enteric Route: PO, Drug Active 2012 Medical coated form: ECTAB, [place] Daily, Dosing Weight 86.364, kg, Start date: 07/12/13 20:00:00, Duration: 30 day, Stop date: 08/11/13 9:00:00Do not crush or chew. (Same As: Ecotrin) glucagon 1 mg, Route: IM, No Longer [facility] Drug form: Active 2012 Medical PDR/INJ, PRN, [place] Dosing Weight 86.364, kg, PRN Blood Glucose Results, Start date: 07/12/13 18:26:00, Duration: 30 day, Stop date: 08/11/13 18:25:00 Dextrose 50% 12.5 gm, 25 mL, No Longer [facility] Syringe Route: IVP, Drug Active 2012 Medical Form: INJ, [place] Dosing Weight 86.364, kg, PRN, PRN Blood Glucose Results, Start date: 07/12/13 18:26:00, Duration: 30 day, Stop date: 08/11/13 18:25:00 insulin aspart 4 unit, 0.04 mL, No Longer [facility] Route: SUB-Q, Active 2012 Medical Drug form: SOLN, [place] TID-Before Meals, Dosing Weight 86.364, kg, PRN Blood Glucose Results, Start date: 07/12/13 18:26:00, Duration: 30 day, Stop date: 08/11/13 18:25:00Roll in palms of hands gently; Do not shake vigorously. (Same as: NovoLog) "single patient use only" Stable for 28 days at room temperature. Expires in days from Da te tramadol 50 mg 50 mg, 1 tab, No Longer [place] oral tablet Route: PO, Drug Active 2012 Medical form: TAB, Q4H, Center Dosing Weight 86.364, kg, PRN as needed for pain, Start date: 07/12/13 18:24:00, Duration: 30 day, Stop date: 08/11/13 18:23:00Not to exceed 400mg/day. (Same As: Ultram) acetaminophen-h 1 tab, Route: No Longer [facility] ydrocodone 325 PO, Drug Form: Active 2012 Medical mg-5 mg oral TAB, Dosing Center tablet Weight 86.364, kg, Q4H, PRN Pain, Start date: 07/12/13 18:23:00, Duration: 30 day, Stop date: 08/11/13 18:22:00(Same as: [place] 325/5) Do not exceed 4gm/day of acetaminophen. Flexeril 10 mg, 1 tab, No Longer [facility] Route: PO, Drug Active 2012 Medical form: TAB, TID, Center Dosing Weight 86.364, kg, PRN Spasm, Start date: 07/12/13 18:23:00, Duration: 30 day, Stop date: 08/11/13 18:22:00(Same As: Flexeril) benzonatate 100 mg, 1 cap, No Longer [facility] Route: PO, Drug Active 2012 Medical form: CAP, TID, Center Dosing Weight 86.364, kg, PRN as needed for cough, Start date: 07/12/13 18:23:00, Duration: 30 day, Stop date: 08/11/13 18:22:00(Same As: Oleksandr Francis) "Do Not Crush" Saline Flush 5 ml, Route: No Longer [facility] [place] 0.9% IVP, Drug Form: Active 2012 Medical INJ, Dosing Center Weight 86.364, kg, PRN, PRN Line Flush, Start date: 07/12/13 18:22:00, Duration: 30 day, Stop date: 08/11/13 18:21:00(Same as: BD Posiflush) ondansetron 4 mg, 2 mL, No Longer [facility] Route: IVP, Drug Active 2012 Medical form: INJ, Q8H, Center Dosing Weight 86.364, kg, PRN Nausea & Vomiting, Start date: 07/12/13 18:22:00, Duration: 30 day, Stop date: 08/11/13 18:21:00(Same as: Zofran) aspirin 81 mg 81 mg, 1 tab, Active [facility] tablet, enteric PO, Daily, 0 2012 Medical coated tab, Center Substitution Allowed, ECTAB Klor-Con M20 20 mEq, 1 tab, No Longer [facility] oral tablet, PO, Daily, 180 Active 2012 Medical extended tab, Center release Substitution Allowed, ERTAB furosemide 40 40 mg, 1 tab, No Longer [facility] mg oral tablet PO, Daily, 30 Active 2012 Medical tab, Center Substitution Allowed, TAB benzonatate 100 PO, TID, PRN, 1 Active [facility] mg oral capsule to 2 tabs, prn, 2012 Medical Substitution Center Allowed1 to 2 tabs metoprolol 50 mg, 1 tab, No Longer [facility] tartrate 50 mg PO, Daily, 180 Active 2012 Medical oral tablet tab, Center Substitution Allowed, TAB Reglan 10 mg, 2 mL, Inactive [facility] Route: IVP, Drug 2012 Medical form: INJ, ONCE, Center Dosing Weight 86.364, kg, Priority: STAT, Start date: 07/12/13 12:12:00, Stop date: 07/12/13 12:12:00(Same as: Reglan) Zofran 4 mg, Route: Inactive [facility] 07/12[facility] IVP, Drug form: 2012 Medical INJ, ONCE, Center Dosing Weight 86.364, kg, Priority: STAT, Start date: 07/12/13 10:52:00, Stop date: 07/12/13 10:52:00 morphine 4 mg, Route: Inactive [facility] 07/12[facility] Sulfate IVP, Drug form: 2012 Medical INJ, [...] Stop date: 07/12/13 11:05:00, Bolus DoseBolus Dose [place] 5/325 1 tab, Route: Inactive [facility] [...] ODT 8 mg, Route: PO, Inactive [facility] Drug form: 2012 Medical TABDIS, ONCE, Center Dosing Weight 86.364, kg, Priority: STAT, Start date: 07/12/13 6:56:00, Stop date: 07/12/13 6:56:00 Levemir 10 unit, 0.1 mL, Inactive [facility] Route: SUB-Q, 2012 Medical Drug form: INJ, Center ONCE, Dosing Weight 86.364, kg, Start date: 07/12/13 4:20:00, Stop date: 07/12/13 4:20:00Same as Levemir "single patient use only" Omnipaque 100 mL, Route: Inactive [facility] 350mg/ml IVP, Drug Form: 2012 Medical SOLN, Dosing Center Weight 86.364, kg, ONCALL, STAT, Start date: 07/12/13 4:18:00, Duration: 1 doses or times, Dose=2.2ml/kg, Max [id number] -- "To be infused by Radiology Staff ONLY"Dose=2.2ml/ kg, Max [id number] -- "To be infused by Radiology Staff [...] mg, 1 tab, PO No Longer [facility] [place] tablet, enteric Route: PO, Drug Active 2012 Medical coated form: ECTAB, Center Daily, Dosing Weight 90, kg, Start date: 04/03/13 9:00:00, Duration: 30 day, Stop date: 05/02/13 9:00:00 Effient 10 mg, 1 tab, PO No Longer [facility] Route: PO, Drug Active 2012 Medical form: TAB, Center Daily, Dosing Weight 90, kg, Start date: 04/03/13 9:00:00, Duration: 30 day, Stop date: 05/02/13 9:00:00 Lyrica 150 mg, 2 cap, PO No Longer [facility] Route: PO, Drug Active 2012 Medical form: CAP, BID, Center Dosing Weight 90, kg, Start date: 04/03/13 9:00:00, Duration: 30 day, Stop date: 05/02/13 17:00:00 Protonix 40 mg, 1 tab, PO No Longer [facility] Route: PO, Drug Active 2012 Medical [...] mg, 1 tab, PO No Longer [facility] Route: PO, Drug Active 2012 Medical form: TAB, BID, Center Dosing Weight 90, kg, Priority: Routine, Start date: 04/03/13 9:00:00, Duration: 30 day, Stop date: 05/02/13 17:00:00 lisinopril 20 mg, Route: PO No Longer [facility] PO, Drug form: Active 2012 Medical TAB, Daily, Center Dosing Weight 90, kg, Start date: 04/03/13 9:00:00, Duration: 30 day, Stop date: 05/02/13 9:00:00 Levemir 12 unit, Route: SUB-Q No Longer [facility] SUB-Q, BID, Active 2012 Medical Dosing Weight Center 90, kg, Start date: 04/03/13 9:00:00, Duration: 30 day, Stop date: 05/02/13 17:00:00 ferrous sulfate 325 mg, 1 tab, PO No Longer [facility] Route: PO, Drug Active 2012 Medical form: ECTAB, [place] TID, Dosing Weight 90, kg, Start date: 04/03/13 9:00:00, Duration: 30 day, Stop date: 05/02/13 17:00:00 clonazepam 0.5 mg, 1 tab, PO No Longer [facility] Route: PO, Drug Active 2012 Medical form: TAB, TID, Center Dosing Weight 90, kg, Start date: 04/03/13 9:00:00, Duration: 30 day, Stop date: 05/02/13 17:00:00 NovoLog 6 unit, 0.06 mL, SUB-Q No Longer [facility] Route: SUB-Q, Active 2012 Medical Drug form: SOLN, [place] TID-Before Meals, Dosing Weight 90, kg, Start [...] mg, 2 cap, PO No Longer [facility] Route: PO, Drug Active 2012 Medical form: DRC, [place] Bedtime, Dosing Weight 90, kg, Start date: 04/02/13 23:30:00, Duration: 30 day, Stop date: 05/02/13 21:00:00 Zocor 40 mg, 1 tab, PO No Longer [facility] Route: PO, Drug Active 2012 Medical form: TAB, Center Bedtime, Dosing Weight 90, kg, Start date: 04/02/13 21:00:00, Duration: 30 day, Stop date: 05/01/13 21:00:00 Cymbalta 60 mg, 1 cap, PO No Longer [facility] Route: PO, Drug Active 2012 Medical form: DRC, Center Bedtime, Dosing Weight 90, kg, Start date: 04/02/13 21:00:00, Duration: 30 day, Stop date: 05/01/13 21:00:00 magnesium oxide 400 mg, 1 tab, PO No Longer [facility] [place] Route: PO, Drug Active 2012 Medical form: TAB, Center Daily, Dosing Weight 90, kg, Priority: NOW, Start date: 04/02/13 20:45:00, Duration: 30 day, Stop date: 05/02/13 9:00:00 Levemir 12 unit, 0.12 SUB-Q No Longer [facility] [place] mL, Route: Active 2012 Medical SUB-Q, Drug Center form: INJ, BID, Dosing Weight 90, kg, Start date: 04/02/13 20:45:00, Duration: 30 day, Stop date: 05/02/13 17:00:00 hydrALAZINE 10 mg, 0.5 mL, IVP No Longer [facility] Route: IVP, Drug Active 2012 Medical form: INJ, Q4H, Center Dosing Weight 90, kg, PRN Hypertension, Start date: 04/02/13 20:37:00, Duration: 30 day, Stop date: 05/02/13 20:36:00 lisinopril 20 mg, 1 tab, PO No Longer [facility] Route: PO, Drug Active 2012 Medical form: TAB, Center Daily, Dosing Weight 90, kg, Start date: 04/02/13 20:30:00, Duration: 30 day, Stop date: 05/02/13 9:00:00 metoprolol 12.5 mg, 1 ea, PO No Longer [facility] tartrate Route: PO, Drug Active 2012 Medical form: TAB, BID, Center Dosing Weight 90, kg, Start date: 04/02/13 20:30:00, Duration: 30 day, Stop date: 05/02/13 17:00:00 insulin aspart 8 unit, 0.08 mL, SUB-Q No Longer [facility] Route: SUB-Q, Active 2012 Medical Drug form: SOLN, Center TID-Before Meals, Dosing Weight 90, kg, PRN Blood Glucose Results, Start date: 04/02/13 20:30:00, Duration: 30 day, Stop date: 05/02/13 20:29:00 glucagon 1 mg, Route: IM, IM No Longer [facility] Drug form: Active 2012 Medical PDR/INJ, PRN, Center Dosing Weight 90, kg, PRN Blood Glucose Results, Start date: 04/02/13 20:30:00, Duration: 30 day, Stop date: 05/02/13 20:29:00 Dextrose 50% 25 gm, 50 mL, IVP No Longer [facility] 04/03[facility] Syringe Route: IVP, Drug Active 2012 Medical Form: INJ, Center Dosing Weight 90, kg, PRN, PRN Blood Glucose Results, Start date: 04/02/13 20:30:00, Duration: 30 day, Stop date: 05/02/13 20:29:00 Insulin regular 8 unit, Route: SUB-Q No Longer [facility] SUB-Q, Active 2012 Medical TID-Before Center Meals, Dosing Weight 90, kg, PRN Blood Glucose Results, Start date: 04/02/13 20:29:00, Duration: 30 day, Stop date: 05/02/13 20:28:00 glucagon 1 mg, Route: IM, IM No Longer [facility] 04/03[facility] PRN, Dosing Active 2012 Medical Weight 90, kg, Center PRN Blood Glucose Results, Start date: 04/02/13 20:29:00, Duration: 30 day, Stop date: 05/02/13 20:28:00 Dextrose 50% 50 mL, Route: IVP No Longer [facility] 04/03[facility] Syringe IVP, Dosing Active 2012 Medical Weight 90, kg, Center PRN, PRN Blood Glucose Results, Start date: 04/02/13 20:29:00, Duration: 30 day, Stop date: 05/02/13 20:28:00 Zofran 4 mg, 2 mL, IV No Longer [facility] Route: IV, Drug Active 2012 Medical form: INJ, Q8H, Center Dosing Weight 90, kg, PRN Nausea, Start date: 04/02/13 20:29:00, Duration: 30 day, Stop date: 05/02/13 20:28:00 Maalox Advanced 30 mL, Route: PO No Longer [facility] Regular PO, Drug Form: Active 2012 Medical Strength SUSP SUSP, Dosing Center Weight 90, kg, QID, PRN Indigestion, Start date: 04/02/13 20:28:00, Duration: 30 day, Stop date: 05/02/13 20:27:00 Flexeril 10 mg, 1 tab, PO No Longer [facility] Route: PO, Drug Active 2012 Medical form: TAB, TID, Center Dosing Weight 90, kg, PRN Spasm, Start date: 04/02/13 20:22:00, Duration: 30 day, Stop date: 05/02/13 20:21:00 acetaminophen-h 1 tab, Route: PO No Longer [facility] ydrocodone 325 PO, Drug Form: Active 2012 Medical mg-5 mg oral TAB, Dosing Center tablet Weight 90, kg, Q4H, PRN Pain, Start date: 04/02/13 20:22:00, Duration: 30 day, Stop date: 05/02/13 20:21:00 Phenergan 12.5 mg, 0.5 mL, IVPB No Longer [facility] Route: IVPB, Active 2012 Medical Drug form: INJ, Center ONCE, Dosing Weight 90, kg, Start date: 04/02/13 20:11:00, Stop date: 04/02/13 20:11:00 morphine 4 mg, 1 mL, IVP No Longer [facility] Sulfate Route: IVP, Drug Active 2012 Medical form: INJ, ONCE, Center Dosing Weight 90, kg, Start date: 04/02/13 20:10:00, Stop date: 04/02/13 20:10:00 Phenergan 12.5 mg, 0.5 mL, IVPB No Longer [facility] Route: IVPB, Active 2012 Medical Drug form: INJ, Center ONCE, Dosing Weight 90, kg, Priority: STAT, Start date: 04/02/13 17:11:00, Stop date: 04/02/13 17:11:00 Zofran 4 mg, 2 mL, IVP No Longer [facility] Route: IVP, Drug Active 2012 Medical form: INJ, ONCE, Center Dosing Weight 90, kg, Priority: STAT, Start date: 04/02/13 16:52:00, Stop date: 04/02/13 16:52:00 nitroglycerin 0.4 mg, 1 tab, SL No Longer [facility] Route: SL, Drug Active 2012 Medical form: TAB, Center Q5Min, Dosing Weight 90, kg, PRN Chest Pain, Priority: STAT, Start date: 04/02/13 16:31:00, Duration: 3 doses or times, Stop date: Limited # of times aspirin 325 mg, 1 tab, PO No Longer [facility] Route: PO, Drug Active 2012 Medical form: ECTAB, Center ONCE, Dosing Weight 90, kg, Priority: STAT, Start date: 04/02/13 16:31:00, Stop date: 04/02/13 16:31:00 morphine 4 mg, 1 mL, IVP No Longer [facility] Sulfate Route: IVP, Drug Active 2012 Medical form: INJ, ONCE, Center Dosing Weight 90, kg, Start date: 04/02/13 16:30:00, Stop date: 04/02/13 16:30:00 erythromycin 1 cap, PO, Q12H, PO Active [facility] 250 mg oral 14 cap, 2012 Medical enteric coated Substitution Center tablet Allowed, ECTAB GI cocktail 30 ml, Route: PO No Longer [facility] PO, Drug Form: Active 2012 Medical SUSP, Dosing Center Weight 90, kg, ONCE, Routine, Start date: 03/08/13 16:26:00, Stop date: 03/08/13 16:26:00 erythromycin 250 mg, 1 cap, PO No Longer [facility] [place] 250 mg oral Route: PO, Drug Active 2012 Medical enteric coated form: ECCAP, [place] tablet Q12H, Dosing Weight 90, kg, Start date: 03/08/13 12:00:00, Duration: 30 day, Stop date: 04/07/13 9:00:00 magnesium 2 gm, 50 mL, IVPB No Longer [facility] sulfate Route: IVPB, Active 2012 Medical Drug form: INJ, Center Q2H, Dosing Weight 90, kg, Total Dose=4 gm, Start date: 03/08/13 12:00:00, Duration: 2 doses or times, Stop date: 03/08/13 14:00:00, For Mg=1.5 - 1.7 mg/dLFor Mg=1.5 - 1.7 mg/dL insulin aspart 5 unit, 0.05 mL, SUB-Q No Longer [facility] Route: SUB-Q, Active 2012 Medical Drug form: SOLN, [place] ONCE, Dosing Weight 90, kg, Start date: 03/08/13 3:17:00, Stop date: 03/08/13 3:17:00 Zocor 40 mg, 1 tab, PO No Longer [facility] Route: PO, Drug Active 2012 Medical form: TAB, Center Bedtime, Dosing Weight 90, kg, Start date: 03/07/13 21:00:00, Duration: 30 day, Stop date: 04/05/13 21:00:00 Cymbalta 120 mg, 2 cap, PO No Longer [facility] Route: PO, Drug Active 2012 Medical [...] unit, 0.1 mL, SUB-Q No Longer [facility] Route: SUB-Q, Active 2012 Medical Drug form: SOLN, Center ONCE, Dosing Weight 90, kg, Start date: 03/07/13 19:16:00, Stop date: 03/07/13 19:16:00 Lyrica 150 mg, 2 cap, PO No Longer [facility] Route: PO, Drug Active 2012 Medical form: CAP, BID, Center Dosing Weight 90, kg, Start date: 03/07/13 17:00:00, Duration: 30 day, Stop date: 04/06/13 9:00:00 Protonix 40 mg, 1 tab, PO No Longer [facility] Route: PO, Drug Active 2012 Medical form: ECTAB, Center BID, Dosing Weight 90, kg, Start date: 03/07/13 17:00:00, Duration: 30 day, Stop date: 04/06/13 9:00:00 meloxicam 7.5 mg, 1 tab, PO No Longer [facility] Route: PO, Drug Active 2012 Medical form: TAB, Center BID-Meals, Dosing Weight 90, kg, Start date: 03/07/13 17:00:00, Duration: 30 day, Stop date: 04/06/13 8:00:00 Flexeril 10 mg, 1 tab, PO No Longer [facility] Route: PO, Drug Active 2012 Medical form: TAB, BID, Center Dosing Weight 90, kg, Start date: 03/07/13 17:00:00, Duration: 30 day, Stop date: 04/06/13 9:00:00 NovoLog FlexPen 6 unit, 0.06 mL, SUB-Q No Longer [facility] Route: SUB-Q, Active 2012 Medical Drug form: SOLN, Center TID-Before Meals, Start date: 03/07/13 16:30:00, Duration: 30 day, Stop date: 04/06/13 11:30:00 Humalog 6 unit, Route: SUB-Q No Longer [facility] SUB-Q, Active 2012 Medical TID-Before Center Meals, Dosing Weight 90, kg, Start date: 03/07/13 16:30:00, Duration: 30 day, Stop date: 04/06/13 11:30:00 heparin 5,000 unit, 1 SUB-Q No Longer [facility] mL, Route: Active 2012 Medical SUB-Q, Drug Center form: INJ, Q8H, Dosing Weight 90, kg, Start date: 03/07/13 16:00:00, Duration: 30 day, Stop date: 04/06/13 8:00:00 Effient 10 mg, 1 tab, PO No Longer [facility] Route: PO, Drug Active 2012 Medical form: TAB, Center Daily, Dosing Weight 90, kg, Start date: 03/07/13 13:30:00, Duration: 30 day, Stop date: 04/06/13 9:00:00 magnesium oxide 400 mg, 1 tab, PO No Longer [facility] Route: PO, Drug Active 2012 Medical form: TAB, Center Daily, Dosing Weight 90, kg, Start date: 03/07/13 13:30:00, Duration: 30 day, Stop date: 04/06/13 9:00:00 lisinopril 20 mg, 1 tab, PO No Longer [facility] Route: PO, Drug Active 2012 Medical form: TAB, Center Daily, Dosing Weight 90, kg, Start date: 03/07/13 13:30:00, Duration: 30 day, Stop date: 04/06/13 9:00:00 Reglan 5 mg, 1 tab, PO No Longer [facility] Route: PO, Drug Active 2012 Medical form: TAB, TID, Center Dosing Weight 90, kg, Start date: 03/07/13 13:00:00, Duration: 30 day, Stop date: 04/06/13 9:00:00 ferrous sulfate 325 mg, 1 tab, PO No Longer [facility] Route: PO, Drug Active 2012 Medical form: ECTAB, Center TID, Dosing Weight 90, kg, Start date: 03/07/13 13:00:00, Duration: 30 day, Stop date: 04/06/13 9:00:00 clonazepam 0.5 mg, 1 tab, PO No Longer [facility] Route: PO, Drug Active 2012 Medical form: TAB, TID, Center Dosing Weight 90, kg, Start date: 03/07/13 13:00:00, Duration: 30 day, Stop date: 04/06/13 9:00:00 NovoLog 6 unit, SUB-Q, SUB-Q No Longer [place] TID-Before Active 2012 Medical Meals, Center Substitution Allowed Levemir 12 unit, SUB-Q, SUB-Q Active [place] BID, 2012 Medical Substitution Center Allowed NS 1,000 mL 1,000 mL, Rate: IV No Longer [facility] [place] 125 ml/hr, Active 2012 Medical Infuse over: 8 Center hr, Route: IV, Dosing Weight 90 kg, Total Volume: 1,000, Start date: 03/07/13 12:19:00, Duration: 30 day, Stop date: 04/06/13 12:18:00 insulin aspart 2 unit, 0.02 mL, SUB-Q No Longer [facility] Route: SUB-Q, Active 2012 Medical Drug form: SOLN, Center TID-Before Meals, Dosing Weight 90, kg, PRN Blood Glucose Results, Start date: 03/07/13 11:55:00, Duration: 30 day, Stop date: 04/06/13 11:54:00 glucagon 1 mg, Route: IM, IM No Longer [facility] Drug form: Active 2012 Medical PDR/INJ, PRN, Center Dosing Weight 90, kg, PRN Blood Glucose Results, Start date: 03/07/13 11:55:00, Duration: 30 day, Stop date: 04/06/13 11:54:00 Dextrose 50% 12.5 gm, 25 mL, IVP No Longer [facility] Syringe Route: IVP, Drug Active 2012 Medical Form: INJ, Center Dosing Weight 90, kg, PRN, PRN Blood Glucose Results, Start date: 03/07/13 11:55:00, Duration: 30 day, Stop date: 04/06/13 11:54:00 Phenergan 12.5 mg, 0.5 mL, IVPB No Longer [facility] Route: IVPB, Active 2012 Medical Drug form: INJ, Center Q4H, Dosing Weight 90, kg, PRN Nausea & Vomiting, Start date: 03/07/13 11:53:00, Duration: 30 day, Stop date: 04/06/13 11:52:00 albuterol 2.49 mg, 3 mL, NEB No Longer [facility] 0.083% Route: NEB, Drug Active 2012 Medical inhalation form: SOLN, Center solution RQ4H, Dosing Weight 90, kg, PRN as needed for wheezing, Start date: 03/07/13 11:53:00, Duration: 30 day, Stop date: 04/06/13 11:52:00 Zofran 4 mg, 2 mL, IVP No Longer [facility] Route: IVP, Drug Active 2012 Medical form: INJ, Q4H, Center Dosing Weight 90, kg, PRN Nausea, Start date: 03/07/13 11:53:00, Duration: 30 day, Stop date: 04/06/13 11:52:00 acetaminophen-h 1 tab, Route: PO No Longer [facility] ydrocodone 325 PO, Drug Form: Active 2012 Medical mg-10 mg oral TAB, Dosing Center tablet Weight 90, kg, Q4H, PRN Pain Score 4-6, Start date: 03/07/13 11:51:00, Duration: 30 day, Stop date: 04/06/13 11:50:00 acetaminophen-h 1 tab, Route: PO No Longer [facility] ydrocodone 325 PO, Drug Form: Active 2012 Medical mg-5 mg oral TAB, Dosing Center tablet Weight 90, kg, Q4H, PRN Pain Score 1-3, Start date: 03/07/13 11:51:00, Duration: 30 day, Stop date: 04/06/13 11:50:00 acetaminophen 650 mg, 2 tab, PO No Longer [facility] Route: PO, Drug Active 2012 Medical form: TAB, Q4H, Center Dosing Weight 90, kg, PRN Pain 1-3/Temp > 100.4 F, Start date: 03/07/13 11:51:00, Duration: 30 day, Stop date: 04/06/13 11:50:00 morphine 2 mg, 1 mL, IVP No Longer [facility] Sulfate Route: IVP, Drug Active 2012 Medical form: INJ, Q4H, Center Dosing Weight 90, kg, PRN Pain Score 7-10, Start date: 03/07/13 11:51:00, Duration: 30 day, Stop date: 04/06/13 11:50:00 docusate 100 mg, 1 cap, PO No Longer [facility] Route: PO, Drug Active 2012 Medical form: CAP, BID, Center Dosing Weight 90, kg, PRN Constipation, Start date: 03/07/13 11:51:00, Duration: 30 day, Stop date: 04/06/13 11:50:00 Levemir 12 unit, 0.12 SUB-Q No Longer [facility] mL, Route: Active 2012 Medical SUB-Q, Drug Center form: INJ, ONCE, Dosing Weight 90, kg, Start date: 03/07/13 6:10:00, Stop date: 03/07/13 6:10:00 lidocaine-epi 1 ml, Route: SUB-Q No Longer [facility] [id number] SUB-Q, Drug Active 2012 Medical Form: SOLN, Center Dosing Weight 90, kg, ONCE, STAT, Start date: 03/07/13 5:18:00, Stop date: 03/07/13 5:18:00 Insulin regular 99 mL, Rate: IVPB No Longer [facility] 100 unit + Start Insulin Active [...] gm, 25 mL, IVP No Longer [facility] Syringe Route: IVP, Drug Active 2012 Medical Form: INJ, Center Dosing Weight 90, kg, PRN, PRN Blood Glucose Results, Start date: 03/07/13 5:13:00, Duration: 30 day, Stop date: 04/06/13 5:12:00 NS (Bolus) IV 1,000 mL, Rate: IV No Longer [facility] 1,000 mL 1,000 ml/hr, 2012 Medical Infuse over: 1 Center hr, Route: IV, Dosing Weight 90 kg, Total Volume: 1,000, Priority: STAT, Start date: 03/07/13 2:36:00, Duration: 1 doses or times, Stop date: 03/07/13 3:35:00, Bolus DoseBolus Dose magnesium 2 gm, 50 mL, IVPB No Longer [facility] [place] sulfate Route: IVPB, 2012 Medical Drug form: INJ, Center ONCE, Dosing Weight 90, kg, Start date: 03/07/13 2:35:00, Stop date: 03/07/13 2:35:00 Insulin regular 10 unit, 0.1 mL, SUB-Q No Longer [facility] Route: SUB-Q, 2012 Medical Drug form: SOLN, Center ONCE, Dosing Weight 90, kg, Priority: STAT, Start date: 03/07/13 2:16:00, Stop date: 03/07/13 2:16:00 Reglan 10 mg, 2 mL, IVP No Longer [facility] [place] Route: IVP, Drug 2012 Medical form: INJ, ONCE, Center Dosing Weight 90, kg, Priority: STAT, Start date: 03/07/13 2:16:00, Stop date: 03/07/13 2:16:00 NS 1,000 mL 1,000 mL, Rate: IV No Longer [facility] [place] 150 ml/hr, 2012 Medical Infuse over: 6.7 Center hr, Route: IV, Dosing Weight 90 kg, Total Volume: 1,000, Start date: 03/07/13 2:15:00, Duration: 30 day, Stop date: 04/06/13 2:14:00 droperidol 1.25 mg, Route: IVP No Longer [facility] IVP, ONCE, 2012 Medical Dosing Weight Center 90, kg, PRN Nausea & Vomiting, Start date: 03/07/13 0:48:00 D5W 1/2NS 1,000 1,000 mL, Rate: IV No Longer [facility] [place] mL 125 ml/hr, 2012 Medical Infuse over: 8 Center hr, Route: IV, Dosing Weight 90 kg, Total Volume: 1,000, Start date: 03/07/13 0:43:00, Duration: 30 day, Stop date: 04/06/13 0:42:00 Insulin regular 4 unit, 0.04 mL, SUB-Q No Longer [facility] Route: SUB-Q, Active 2012 Medical Drug form: SOLN, Center Sliding Scale, Dosing Weight 90, kg, PRN Blood Glucose Results, Start date: 03/07/13 0:01:00, Duration: 30 day, Stop date: 04/06/13 0:00:00 glucagon 1 mg, Route: IM, IM No Longer [facility] Drug form: Active 2012 Medical PDR/INJ, PRN, Center Dosing Weight 90, kg, PRN Blood Glucose Results, Start date: 03/07/13 0:01:00, Duration: 30 day, Stop date: 04/06/13 0:00:00 Dextrose 50% 25 gm, 50 mL, IVP No Longer [facility] Syringe Route: IVP, Drug Active 2012 Medical Form: INJ, Center Dosing Weight 90, kg, PRN, PRN Blood Glucose Results, Start date: 03/07/13 0:01:00, Duration: 30 day, Stop date: 04/06/13 0:00:00 NS 1,000 mL 1,000 mL, Rate: IV No Longer [facility] 125 ml/hr, Active 2012 Medical Infuse over: 8 Center hr, Route: IV, Dosing Weight 90 kg, Total Volume: 1,000, Start date: 03/06/13 23:21:00, Duration: 30 day, Stop date: 04/05/13 23:20:00 NS (Bolus) IV 1,000 mL, Rate: IV No Longer [facility] 1,000 mL 1,000 ml/hr, Active 2012 Medical Infuse over: 1 Center hr, Route: IV, Dosing Weight 90 kg, Total Volume: 1,000, Priority: STAT, Start date: 03/06/13 23:21:00, Duration: 1 doses or times, Stop date: 03/07/13 0:20:00, Bolus DoseBolus Dose [place] 5/325 1 tab, PO, Q6H, PO No Longer [facility] oral tablet PRN, 30 tab, Active 2012 Medical Substitution Center Allowed, Maintenance ferrous sulfate 325 mg, 1 tab, PO Active [facility] 325 mg oral PO, TID, 30 tab, 2012 Medical enteric coated Substitution Center tablet Allowed, ECTAB acetaminophen-h 1 tab, PO, Q4H, PO Active [facility] ydrocodone 500 PRN, for pain, 2012 Medical mg-7.5 mg oral Substitution Center tablet Allowed, Maintenance, TAB meloxicam 7.5 7.5 mg, 1 tab, PO Active [facility] mg oral tablet PO, BID, WITH 2012 Medical FOOD, 30 tab, Center Substitution Allowed, TABWITH FOOD Zocor 40 mg 40 mg, 1 tab, PO Active [facility] oral tablet PO, Bedtime, 30 2012 Medical tab, Center Substitution Allowed, Maintenance ProAir HFA 90 Substitution Active [facility] mcg/inh Allowed, 2012 Medical inhalation Maintenance Center aerosol with adapter Flexeril 10 mg 10 mg, 1 tab, PO Active [facility] oral tablet PO, TID, PRN, 30 2012 Medical tab, for spasm, Center Substitution Allowed, TAB Protonix 40 mg 40 mg, 1 tab, PO Active [facility] oral enteric PO, BID, 30 tab, 2012 Medical coated tablet Substitution Center Allowed, ECTAB Lyrica 150 mg 150 mg, 1 cap, PO Active [facility] oral capsule PO, BID, 90 cap, 2012 [facility] Substitution [place] Allowed, CAP Flagyl 500 mg 500 mg, 1 tab, PO No Longer [facility] oral tablet PO, Q6H, 30 tab, Active 2012 [facility] Substitution [place] Allowed metoclopramide 10 mg, 1 tab, PO Active [facility] 10 mg oral PO, TID, 56 tab, 2012 Medical tablet Substitution Center Allowed, TAB NS (Bolus) IV 1,000 mL, Rate: IV No Longer [facility] 1,000 mL 1,000 ml/hr, Active 2012 Medical Infuse over: 1 Center hr, Route: IV, Dosing Weight 90 kg, Total Volume: 1,000, Priority: STAT, Start date: 03/06/13 21:27:00, Duration: 1 doses or times, Stop date: 03/06/13 22:26:00, Bolus DoseBolus Dose morphine 4 mg, 1 mL, IVP No Longer [facility] Sulfate Route: IVP, Drug Active 2012 Medical form: INJ, ONCE, Center Dosing Weight 90, kg, Start date: 03/06/13 21:27:00, Stop date: 03/06/13 21:27:00 Phenergan 12.5 mg, 0.5 mL, IVPB No Longer [facility] Route: IVPB, Active 2012 Medical Drug form: INJ, Center ONCE, Dosing Weight 90, kg, Priority: STAT, Start date: 03/06/13 21:26:00, Stop date: 03/06/13 21:26:00 ergocalciferol 50,000 IntlUnit, PO No Longer [facility] 1 cap, Route: Active 2012 Medical PO, Drug form: Center CAP, qWeek, Dosing Weight 100, kg, Start date: 12/07/12 9:00:00, Duration: 30 day, Stop date: 01/04/13 9:00:00 erythromycin 250 mg, 1 tab, PO Active [facility] stearate 250 mg PO, Q6H, 56 tab, 2012 Medical oral tablet Substitution Center Allowed, TAB Protonix 40 mg 40 mg, 1 tab, PO Active [facility] oral enteric PO, Daily, 2012 Medical coated tablet tab, Center Substitution Allowed, ECTAB pravastatin 80 80 mg, 1 tab, PO Active [facility] mg oral tablet PO, Daily, 2012 Medical tab, Center Substitution Allowed, TAB insulin detemir 14 unit, 0.14 SUB-Q Active [facility] 100 units/mL mL, SUB-Q, 2012 Medical subcutaneous Bedtime, 100 mL, [place] solution Substitution Allowed, INJ insulin detemir 16 unit, 0.16 SUB-Q Active [facility] 100 units/mL mL, SUB-Q, 2012 Medical subcutaneous Daily, 100 mL, [place] solution Substitution Allowed, INJ Protonix 40 mg, Route: IVP No Longer [facility] IVP, Drug form: Active 2012 Medical INJ, Daily, Center Dosing Weight 100, kg, Priority: NOW, Start date: 12/06/12 16:52:00, Duration: 30 day, Stop date: 01/05/13 9:00:00 insulin detemir 16 unit, 0.16 SUB-Q No Longer [facility] mL, Route: Active 2012 Medical SUB-Q, Drug Center form: INJ, Daily, Dosing Weight 100, kg, Start date: 12/06/12 9:00:00, Stop date: 01/04/13 9:00:00 [place] 7.5/325 1 tab, Route: PO No Longer [facility] oral tablet PO, Drug Form: Active 2012 [...] No Longer [facility] Sulfate Route: IVP, Drug Active 2012 [...] 40 mEq, Route: IVPB No Longer [facility] chloride IVPB, ONCE, Active 2012 Medical Dosing [...] 12/04/12 8:20:00 Phenergan 25 mg, 1 supp, [place] No Longer [facility] Route: MN, Drug Active 2012 Medical form: SUPP, Q4H, Center Dosing Weight 100, kg, PRN Nausea & Vomiting, Start date: 12/04/12 7:58:00, Duration: 30 day, Stop date: 01/03/13 7:57:00 Dextrose 50% 25 gm, 50 mL, IVP No Longer [facility] [place] Syringe Route: IVP, Drug Active 2012 Medical Form: INJ, Center Dosing Weight 100, kg, PRN, PRN Blood Glucose Results, Start date: 12/04/12 7:48:00, Duration: 30 day, Stop date: 01/03/13 7:47:00 glucagon 1 mg, Route: IM, IM No Longer [facility] [place] Drug form: Active 2012 Medical PDR/INJ, PRN, Center Dosing Weight 100, kg, PRN Blood Glucose Results, Start date: 12/04/12 7:48:00, Duration: 30 day, Stop date: 01/03/13 7:47:00 insulin aspart 4 unit, 0.04 mL, SUB-Q No Longer [facility] [place] Route: SUB-Q, Active 2012 Medical Drug form: SOLN, Center Bedtime, Dosing Weight 100, kg, PRN Blood Glucose Results, Start date: 12/04/12 7:48:00, Duration: 30 day, Stop date: 01/03/13 7:47:00 Protonix 40 mg, Route: IV No Longer [facility] [place] IV, Drug form: Active 2012 Medical INJ, ONCE, Center Dosing Weight 100, kg, Start date: 12/04/12 3:12:00, Stop date: 12/04/12 3:12:00 potassium 20 mEq, 100 mL, IVPB No Longer [facility] chloride Route: IVPB, Active 2012 Medical Q2H, Start date: [place] 12/03/12 8:00:00, Stop date: 12/03/12 11:00:00 potassium 40 mEq, Route: IV No Longer [facility] chloride IV, ONCE, Dosing Active 2012 Medical Weight 100, kg, Center Start date: 12/03/12 7:02:00, Stop date: 12/03/12 7:02:00 NS 1,000 mL 1,000 mL, Rate: IV No Longer [facility] 125 ml/hr, Active 2012 Medical Infuse over: 8 Center hr, Route: IV, kg, Total Volume: 1,000, Start date: 12/02/12 16:54:00, Duration: 30 day, Stop date: 01/01/13 16:53:00 NS (Bolus) IV 1,000 mL, Rate: IV No Longer [facility] 1,000 mL 1,000 ml/hr, Active 2012 Medical Infuse over: 1 Center hr, Route: IV, kg, Total Volume: 1,000, Priority: STAT, Start date: 12/02/12 13:12:00, Duration: 1 doses or times, Stop date: 12/02/12 14:11:00, Bolus DoseBolus Dose NS (Bolus) IV 1,000 mL, Rate: IV No Longer [facility] 1,000 mL 1,000 ml/hr, Active 2012 Medical Infuse over: 1 Center hr, Route: IV, kg, Total Volume: 1,000, Priority: STAT, Start date: 12/02/12 12:10:00, Duration: 1 doses or times, Stop date: 12/02/12 13:09:00, Bolus DoseBolus Dose insulin detemir 20 unit, 0.2 mL, SUB-Q No Longer [facility] Route: SUB-Q, 2012 Medical Drug form: INJ, Center BID, Dosing Weight 100, kg, Start date: 12/02/12 9:00:00, Duration: 30 day, Stop date: 12/31/12 21:00:00 calcium 1,000 mg, 10 mL, IVPB No Longer [facility] chloride + Route: IVPB, Active 2012 Medical Sodium Chloride ONCE, Start Center 0.9% IV 100 mL date: 12/02/12 5:08:00, Stop date: 12/02/12 5:08:00 ceftriaxone 1 gm, Route: IVPB No Longer [facility] IVPB, Drug form: Active 2012 Medical PDR/INJ, Center [id number], Dosing Weight 100, kg, Start date: 12/02/12 5:00:00, Duration: 30 day, Stop date: 12/31/12 5:00:00 calcium 1,000 mg, Route: IVPB No Longer [facility] gluconate IVPB, Drug form: Active 2012 Medical INJ, ONCE, Center Dosing Weight 100, kg, Start date: 12/02/12 5:00:00, Stop date: 12/02/12 5:00:00 Dextrose 50% 25 mL, Route: IVP No Longer [facility] Syringe IVP, Dosing Active 2012 Medical Weight 100, kg, Center PRN, PRN Blood Glucose Results, Start date: 12/02/12 4:51:00, Duration: 30 day, Stop date: 01/01/13 4:50:00 Insulin regular 100 mL, Rate: IVPB No Longer [facility] 100 unit + Start Insulin Active [...] 4 mg, Route: IVP No Longer [facility] IVP, Drug form: Active 2012 Medical INJ, ONCE, Center Dosing Weight 100, kg, Priority: STAT, Start date: 12/02/12 4:47:00, Stop date: 12/02/12 4:47:00 normal saline 1,000 mL, Rate: IV No Longer [facility] 0.9% IV 1,000 1,000 ml/hr, Active 2012 Medical mL Infuse over: 1 Center hr, Route: IV, kg, Total Volume: 1,000, Start date: 12/02/12 3:19:00, Duration: 1 doses or times, Stop date: 12/02/12 4:18:00 Insulin regular 6 unit, 0.06 mL, IV No Longer [facility] Route: IV, Drug Active 2012 Medical form: [facility], Center ONCE, Dosing Weight 100, kg, Priority: STAT, Start date: 12/02/12 3:19:00, Stop date: 12/02/12 3:19:00 insulin aspart 3 unit, 0.03 mL, SUB-Q No Longer [facility] Route: SUB-Q, Active 2012 Medical Drug form: SOLN, Center Bedtime, Dosing Weight 100, kg, PRN Blood Glucose Results, Start date: 12/01/12 13:23:00, Duration: 30 day, Stop date: 12/31/12 13:22:00 NS 1,000 mL 1,000 mL, Rate: IV No Longer [facility] 150 ml/hr, Active 2012 Medical Infuse over: 6.7 Center hr, Route: IV, kg, Total Volume: 1,000, Priority: NOW, Start date: 12/01/12 13:10:00, Duration: 1 doses or times, Stop date: 12/01/12 19:51:00 Insulin regular 2 unit, 0.02 mL, SUB-Q No Longer [facility] Route: SUB-Q, Active 2012 Medical Drug form: SOLN, Center Bedtime, Dosing Weight 100, kg, PRN Blood Glucose Results, Start date: 12/01/12 13:08:00, Duration: 30 day, Stop date: 12/31/12 13:07:00 insulin aspart 4 unit, 0.04 mL, SUB-Q No Longer [facility] Route: SUB-Q, Active 2012 Medical Drug form: SOLN, Center TID-Before Meals, Dosing Weight 100, kg, PRN Blood Glucose Results, Start date: 12/01/12 13:08:00, Duration: 30 day, Stop date: 12/31/12 13:07:00 Dextrose 50% 25 gm, 50 mL, IVP No Longer [facility] Syringe Route: IVP, Drug Active 2012 Medical Form: INJ, Center Dosing Weight 100, kg, PRN, PRN Blood Glucose Results, Start date: 12/01/12 13:08:00, Duration: 30 day, Stop date: 12/31/12 13:07:00 glucagon 1 mg, Route: IM, IM No Longer [facility] Drug form: Active 2012 Medical PDR/INJ, [...] 16 unit, 0.16 SUB-Q No Longer [facility] mL, Route: Active 2012 Medical SUB-Q, Drug Center form: INJ, Q12H, Dosing Weight 100, kg, Start date: 11/30/12 14:00:00, Duration: 30 day, Stop date: 12/30/12 9:00:00 Zofran 4 mg, 2 mL, IV No Longer [facility] Route: IV, Drug Active 2012 Medical form: INJ, Q6H, Center Dosing Weight 100, kg, PRN Nausea, Start date: 11/30/12 13:32:00, Duration: 30 day, Stop date: 12/30/12 13:31:00 insulin aspart 10 unit, 0.1 mL, SUB-Q No Longer [facility] Route: SUB-Q, Active 2012 Medical Drug form: SOLN, Center TID-Before Meals, Dosing Weight 100, kg, PRN Blood Glucose Results, Start date: 11/30/12 13:26:00, Duration: 30 day, Stop date: 12/30/12 13:25:00 Zofran 4 mg, 2 mL, IV No Longer [facility] Route: IV, Drug Active 2012 Medical form: INJ, Q8H, Center Dosing Weight 100, kg, PRN Nausea, Start date: 11/30/12 11:58:00, Duration: 30 day, Stop date: 12/30/12 11:57:00 Zofran 4 mg, 2 mL, IVP No Longer [facility] Route: IVP, Drug Active 2012 Medical form: INJ, ONCE, Center Dosing Weight 100, kg, Priority: NOW, Start date: 11/30/12 11:57:00, Stop date: 11/30/12 11:57:00 potassium 2 pkt, Route: PO No Longer [facility] phosphate-sodiu PO, Drug Form: Active 2012 Medical m phosphate 250 PDR/REC, ONCE, Center mg-278 mg-164 Start date: mg oral powder 11/30/12 10:00:00, Stop date: 11/30/12 10:00:00 Dextrose 5% 1,000 mL, Rate: IV No Longer [facility] with 0.45% NaCl 150 ml/hr, Active [...] heparin 5,000 unit, 1 SUB-Q No Longer [facility] mL, Route: Active 2012 Medical SUB-Q, Drug Center form: INJ, Q8H, Dosing Weight 100, kg, Start date: 11/30/12 8:30:00, Duration: 30 day, Stop date: 12/30/12 8:00:00 magnesium 2 gm, Route: IVPB No Longer [facility] sulfate IVPB, Drug form: Active 2012 [...] unit, 0.1 mL, SUB-Q No Longer [facility] Route: SUB-Q, Active 2012 Medical Drug form: SOLN, Center TID-Before Meals, Dosing Weight 100, kg, PRN Blood Glucose Results, Start date: 11/30/12 7:57:00, Duration: 30 day, Stop date: 12/30/12 7:56:00 glucagon 1 mg, Route: IM, IM No Longer [facility] Drug form: Active 2012 Medical PDR/INJ, PRN, Center Dosing Weight 100, kg, PRN Blood Glucose Results, Start date: 11/30/12 7:57:00, Duration: 30 day, Stop date: 12/30/12 7:56:00 Dextrose 50% 25 gm, 50 mL, IVP No Longer [facility] Syringe Route: IVP, Drug Active 2012 Medical Form: INJ, Center Dosing Weight 100, kg, PRN, PRN Blood Glucose Results, Start date: 11/30/12 7:57:00, Duration: 30 day, Stop date: 12/30/12 7:56:00 1/2 NS 1,000 mL 1,000 mL, Rate: IV No Longer [facility] 200 ml/hr, Active 2012 Medical Infuse over: 5 Center hr, Route: IV, kg, Total Volume: 1,000, Start date: 11/30/12 5:30:00, Duration: 30 day, Stop date: 12/30/12 5:29:00 heparin 5000 5,000 unit, 1 SUB-Q No Longer [facility] 11/30[facility] units/mL mL, Route: Active 2012 [...] mg, 1 tab, PO No Longer [facility] Route: PO, Drug Active 2012 Medical form: TAB, Center Bedtime, Dosing Weight 101.364, kg, Start date: 11/29/12 21:00:00, Duration: 30 day, Stop date: 12/28/12 21:00:00 Cymbalta 60 mg, 1 cap, PO No Longer [facility] Route: PO, Drug Active 2012 Medical form: DRC, Center Bedtime, Dosing Weight 101.364, kg, Start date: 11/29/12 21:00:00, Stop date: 12/28/12 21:00:00 ceftriaxone 1 gm, Route: IVPB No Longer [facility] [place] IVPB, Drug form: Active 2012 Medical PDR/INJ, Center [id number], Dosing Weight 100, kg, Start date: 11/29/12 20:00:00, Duration: 30 day, Stop date: 12/28/12 20:00:00 hydrALAZINE 5 mg, 0.25 mL, IV No Longer [facility] Route: IV, Drug Active 2012 Medical form: INJ, Q4H, Center Dosing Weight 100, kg, PRN Hypertension, Start date: 11/29/12 19:42:00, Duration: 30 day, Stop date: 12/29/12 19:41:00 Phenergan 12.5 mg, 0.5 mL, IVPB No Longer [facility] Route: IVPB, Active 2012 Medical Drug form: INJ, Center Q4H, Dosing Weight 100, kg, PRN Nausea & Vomiting, Start date: 11/29/12 17:56:00, Duration: 30 day, Stop date: 12/29/12 17:55:00 clonazepam 0.5 mg, 1 tab, PO No Longer [facility] [place] Route: PO, Drug Active 2012 Medical form: [...] gm, 150 mL, IVPB No Longer [facility] sulfate 2 gm in Route: IVPB, Active 2012 Medical Water 50 ml Drug form: INJ, Center PRN, Dosing Weight 100, kg, PRN Abnormal Lab Result, Start date: 11/29/12 14:41:00, Stop date: 12/29/12 14:40:00 potassium 20 mmol, Route: IVPB No Longer [facility] phosphate 20 IVPB, PRN, Active 2012 Medical [...] 1,000 mL, Rate: IV No Longer [facility] 0.9% IV 1,000 200 ml/hr, Active 2012 Medical mL Infuse over: 5 Center hr, Route: IV, kg, Total Volume: 1,000, Start date: 11/29/12 14:41:00, Stop date: 12/29/12 14:45:00 Insulin regular 99 mL, Rate: IV No Longer [facility] 100 unit + Start Insulin Active 2012 Medical Sodium Chloride Drip Per ICU Center 0.9% IV 99 mL protocol, Route: IV, kg, Total Volume: 100, Start date: 11/29/12 12:42:00, Stop date: 12/29/12 12:41:00 Insulin regular 100 mL, Rate: IVPB No Longer [facility] 11/29[facility] 100 unit + Start Insulin [...] gm, 25 mL, IVP No Longer [facility] Syringe Route: IVP, Drug Active 2012 Medical Form: INJ, Center Dosing Weight 100, kg, PRN, PRN Blood Glucose Results, Start date: 11/29/12 12:39:00, Duration: 30 day, Stop date: 12/29/12 12:38:00 Zofran 4 mg, 2 mL, IV No Longer [facility] [place] Route: IV, Drug Active 2012 Medical form: INJ, Q4H, Center Dosing Weight 100, kg, PRN as needed for nausea/vomiting, Start date: 11/29/12 9:07:00, Duration: 30 day, Stop date: 12/29/12 9:06:00 NIFEdipine 90 mg, 1 tab, PO No Longer [facility] [place] Route: PO, Drug Active 2012 Medical form: ERTAB, Center Daily, Dosing Weight 101.364, kg, Start date: 11/29/12 9:00:00, Duration: 30 day, Stop date: 12/28/12 9:00:00 clonazepam 0.5 mg, 1 tab, PO No Longer [facility] [place] Route: PO, Drug Active 2012 Medical form: TAB, TID, Center Dosing Weight 101.364, kg, Start date: 11/29/12 9:00:00, Duration: 30 day, Stop date: 12/28/12 17:00:00 lisinopril 20 mg, 1 tab, PO No Longer [facility] Route: PO, Drug Active 2012 Medical form: TAB, Q12H, Center Dosing Weight 101.364, kg, Start date: 11/29/12 9:00:00, Duration: 30 day, Stop date: 12/28/12 21:00:00 magnesium oxide 400 mg, 1 tab, PO No Longer [facility] Route: PO, Drug Active 2012 Medical form: TAB, Center Daily, Dosing Weight 101.364, kg, Start date: 11/29/12 9:00:00, Duration: 30 day, Stop date: 12/28/12 9:00:00 Effient 10 mg, 1 tab, PO No Longer [facility] Route: PO, Drug Active 2012 Medical form: TAB, Center Daily, Dosing Weight 101.364, kg, Start date: 11/29/12 9:00:00, Duration: 30 day, Stop date: 12/28/12 9:00:00 Levemir 8 unit, 0.08 mL, SUB-Q No Longer [facility] Route: SUB-Q, Active 2012 Medical Drug form: INJ, Center BID, Dosing Weight 101.364, kg, Start date: 11/29/12 9:00:00, Duration: 30 day, Stop date: 12/28/12 17:00:00 Toprol-XL 100 100 mg, 1 tab, PO No Longer [place] [place] mg oral tablet, Route: PO, Drug Active 2012 Medical extended form: ERTAB, Center release Daily, Start date: 11/29/12 9:00:00, Duration: 30 day, Stop date: 12/28/12 9:00:00 aspirin 81 mg, 1 tab, PO No Longer [place] [facility] Route: PO, Drug Active 2012 Medical form: ECTAB, Center Daily, Dosing Weight 101.364, kg, Start date: 11/29/12 9:00:00, Duration: 30 day, Stop date: 12/28/12 9:00:00 Reglan 10 mg, 2 mL, IVP No Longer [facility] Route: IVP, Drug Active 2012 Medical [...] mg, 0.4 mL, SUB-Q No Longer [facility] Route: SUB-Q, Active 2012 Medical Drug form: INJ, Center [id number], Dosing Weight 101.364, kg, Start date: 11/29/12 4:00:00, Duration: 30 day, Stop date: 12/28/12 4:00:00 Phenergan 12.5 mg, 0.25 IVPB No Longer [place] [facility] mL, Route: IVPB, Active 2012 Medical Drug form: INJ, Center Q4H, Dosing Weight 101.364, kg, Start date: 11/29/12 4:00:00, Duration: 30 day, Stop date: 12/29/12 0:00:00 tramadol 50 mg 50 mg, 1 tab, PO No Longer [facility] oral tablet Route: PO, Drug Active 2012 Medical form: TAB, Q4H, Center Dosing Weight 101.364, kg, PRN as needed for pain, Start date: 11/29/12 3:46:00, Duration: 30 day, Stop date: 12/29/12 3:45:00 insulin aspart 3 unit, 0.03 mL, SUB-Q No Longer [facility] Route: SUB-Q, Active 2012 Medical Drug form: SOLN, Center TID-Before Meals, Dosing Weight 101.364, kg, PRN Blood Glucose Results, Start date: 11/29/12 3:26:00, Duration: 30 day, Stop date: 12/29/12 3:25:00 Dextrose 50% 12.5 gm, 25 mL, IVP No Longer [facility] Syringe Route: IVP, Drug Active 2012 Medical Form: INJ, Center Dosing Weight 101.364, kg, PRN, PRN Blood Glucose Results, Start date: 11/29/12 3:26:00, Duration: 30 day, Stop date: 12/29/12 3:25:00 glucagon 1 mg, Route: IM, IM No Longer [facility] Drug form: Active 2012 Medical PDR/INJ, PRN, Center Dosing Weight 101.364, kg, PRN Blood Glucose Results, Start date: 11/29/12 3:26:00, Duration: 30 day, Stop date: 12/29/12 3:25:00 acetaminophen 650 mg, 20.3 mL, PO No Longer [facility] Route: PO, Drug Active 2012 Medical form: LIQ, Q4H, Center Dosing Weight 101.364, kg, PRN Pain 1-3/Temp > 100.4 F, Start date: 11/29/12 3:25:00, Duration: 30 day, Stop date: 12/29/12 3:24:00 docusate 100 mg, 1 cap, PO No Longer [facility] Route: PO, Drug Active 2012 Medical form: CAP, BID, Center Dosing Weight 101.364, kg, PRN Constipation, Start date: 11/29/12 3:25:00, Duration: 30 day, Stop date: 12/29/12 3:24:00 D5W 1/2NS 1,000 1,000 mL, Rate: IV No Longer [facility] mL 75 ml/hr, Infuse Active 2012 Medical over: 13.3 hr, Center Route: IV, kg, Total Volume: 1,000, Start date: 11/29/12 3:21:00, Duration: 30 day, Stop date: 12/29/12 3:20:00 NS 0.45% IV 1,000 mL, Rate: IV No Longer [facility] 1000 mL 125 ml/hr, Active 2012 Medical Infuse over: 8 Center hr, Route: IV, Dosing Weight 101.364 kg, Total Volume: 1,000, Start date: 11/29/12 3:18:00, Duration: 30 day, Stop date: 12/29/12 3:17:00 Reglan 10 mg, 2 mL, IVP No Longer [facility] Route: IVP, Drug Active 2012 Medical form: INJ, ONCE, Center Dosing Weight 101.364, kg, Priority: STAT, Start date: 11/29/12 2:31:00, Stop date: 11/29/12 2:31:00 Zofran 8 mg, Route: IVP No Longer [facility] IVP, Drug form: Active 2012 Medical INJ, ONCE, Center Dosing Weight 101.364, kg, Priority: STAT, Start date: 11/29/12 1:52:00, Stop date: 11/29/12 1:52:00 Lortab 500 5 ml, PO, Q6H, PO No Longer [facility] mg-7.5 mg/15 mL PRN, 120 mL, for Active 2012 Medical oral elixir pain, Center Substitution Allowed, Maintenance, ELIX Phenergan 25 mg 1 supp, MN, Q6H, MN Active [facility] rectal PRN, 9 supp, 2012 Medical suppository Nausea & Center Vomiting, Substitution Allowed Phenergan 12.5 mg, 0.5 mL, IVPB No Longer [facility] 11[facility] Route: IVPB, Active 2012 Medical Drug form: INJ, Center ONCE, Dosing Weight 101.364, kg, Priority: STAT, Start date: 11/29/12 0:56:00, Stop date: 11/29/12 0:56:00 Zofran 4 mg, 2 mL, IVP No Longer [facility] 11[facility]29[facility] Route: IVP, Drug Active 2012 Medical form: INJ, ONCE, Center Dosing Weight 101.364, kg, Priority: STAT, Start date: 11/28/12 23:49:00, Stop date: 11/28/12 23:49:00 Phenergan 12.5 mg, 0.5 mL, IVPB No Longer [place] 11/29[facility] Route: IVPB, Active 2012 Medical Drug form: INJ, Center ONCE, Dosing Weight 101.364, kg, Priority: STAT, Start date: 11/28/12 19:29:00, Stop date: 11/28/12 19:29:00 Zofran 4 mg, 2 mL, IVP No Longer [place] 11/29[facility] Route: IVP, Drug Active 2012 [...] mg, 20 mL, IVPB No Longer [facility] gluconate + Route: IVPB, Active 2012 Medical Sodium Chloride ONCE, Dosing Center 0.9% IV 80 mL Weight 103.21, kg, Start date: 11/17/12 11:02:00, Stop date: 11/17/12 11:02:00 magnesium 2 gm, 50 mL, IVPB No Longer [facility] sulfate Route: IVPB, Active 2012 Medical Drug form: INJ, Center Q2H, Dosing Weight 103.21, kg, Total dose=4 gm, Start date: 11/17/12 10:00:00, Duration: 2 doses or times, Stop date: 11/17/12 12:00:00 aspirin 81 mg, 1 tab, PO No Longer [facility] Route: PO, Drug Active 2012 Medical form: ECTAB, Center Daily, Dosing Weight 100, kg, Start date: 11/17/12 9:00:00, Duration: 30 day, Stop date: 12/16/12 9:00:00 simvastatin 40 mg, 1 tab, PO No Longer [facility] Route: PO, Drug Active 2012 Medical form: TAB, Center Daily, Dosing Weight 100, kg, Start date: 11/17/12 9:00:00, Duration: 30 day, Stop date: 12/16/12 9:00:00 prasugrel 10 mg, 1 tab, PO No Longer [facility] Route: PO, Drug Active 2012 Medical form: TAB, Center Daily, Dosing Weight 100, kg, Start date: 11/17/12 9:00:00, Duration: 30 day, Stop date: 12/16/12 9:00:00 NIFEdipine 90 mg, 1 tab, PO No Longer [facility] Route: PO, Drug Active 2012 Medical form: ERTAB, Center Daily, Dosing Weight 100, kg, Start date: 11/17/12 9:00:00, Duration: 30 day, Stop date: 12/16/12 9:00:00 Toprol-XL 100 100 mg, 1 tab, PO No Longer [facility] mg oral tablet, Route: PO, Drug Active 2012 Medical extended form: ERTAB, Center release Daily, Start date: 11/17/12 9:00:00, Duration: 30 day, Stop date: 12/16/12 9:00:00 magnesium oxide 400 mg, 1 tab, PO No Longer [facility] Route: PO, Drug Active 2012 Medical form: TAB, Center Daily, Dosing Weight 100, kg, Start date: 11/17/12 9:00:00, Duration: 30 day, Stop date: 12/16/12 9:00:00 insulin detemir 15 unit, 0.15 SUB-Q No Longer [facility] mL, Route: Active 2012 Medical SUB-Q, Drug Center form: INJ, Daily, Dosing Weight 100, kg, Start date: 11/17/12 9:00:00, Duration: 30 day, Stop date: 12/16/12 9:00:00 Zofran 8 mg, 4 mL, IV No Longer [facility] Route: IV, Drug Active 2012 Medical form: INJ, Q4H, Center Dosing Weight 103.21, kg, PRN as needed for nausea/vomiting, Start date: 11/17/12 8:56:00, Duration: 30 day, Stop date: 12/17/12 8:55:00 Reglan 10 mg 10 mg, 1 tab, PO No Longer [facility] oral tablet Route: PO, Drug Active 2012 Medical form: TAB, Center TID-Before Meals, Dosing Weight 100, kg, Start date: 11/17/12 7:30:00, Duration: 30 day, Stop date: 12/16/12 16:30:00 insulin aspart 4 unit, 0.04 mL, SUB-Q No Longer [facility] Route: SUB-Q, Active 2012 Medical Drug form: SOLN, Center TID-Before Meals, Dosing Weight 100, kg, Start date: 11/17/12 7:30:00, Duration: 30 day, Stop date: 12/16/12 16:30:00 Cymbalta 120 mg, 2 cap, PO No Longer [facility] Route: PO, Drug Active 2012 Medical form: DRC, Center Bedtime, Dosing Weight 100, kg, Start date: 11/16/12 21:00:00, Duration: 30 day, Stop date: 12/15/12 21:00:00 lisinopril 20 mg, 1 tab, PO No Longer [facility] Route: PO, Drug Active 2012 Medical form: TAB, Q12H, Center Dosing Weight 100, kg, Start date: 11/16/12 21:00:00, Duration: 30 day, Stop date: 12/16/12 9:00:00 insulin detemir 12 unit, 0.12 SUB-Q No Longer [facility] mL, Route: Active 2012 Medical SUB-Q, Drug Center form: INJ, Bedtime, Dosing Weight 100, kg, Start date: 11/16/12 21:00:00, Duration: 30 day, Stop date: 12/15/12 21:00:00 clonazepam 0.5 mg, 1 tab, PO No Longer [facility] Route: PO, Drug Active 2012 Medical form: TAB, TID, Center Dosing Weight 100, kg, Start date: 11/16/12 20:30:00, Duration: 30 day, Stop date: 12/16/12 17:00:00 Neutra-Phos 1 pkt, Route: PO No Longer [facility] PO, Drug Form: Active 2012 Medical PDR/REC, Dosing Center Weight 100, kg, TID-Before Meals, Start date: 11/16/12 20:30:00, Duration: 30 day, Stop date: 12/16/12 16:30:00 enoxaparin 40 mg, 0.4 mL, SUB-Q No Longer [facility] Route: SUB-Q, Active 2012 Medical Drug form: INJ, Center [id number], Dosing Weight 100, kg, Start date: 11/16/12 [...] unit, 0.1 mL, SUB-Q No Longer [facility] Route: SUB-Q, Active 2012 Medical Drug form: SOLN, Center TID-Before Meals, Dosing Weight 100, kg, PRN Blood Glucose Results, Start date: 11/16/12 18:10:00, Duration: 30 day, Stop date: 12/16/12 18:09:00 Dextrose 50% 12.5 gm, 25 mL, IVP No Longer [facility] Syringe Route: IVP, Drug Active 2012 Medical Form: INJ, Center Dosing Weight 100, kg, PRN, PRN Blood Glucose Results, Start date: 11/16/12 18:10:00, Duration: 30 day, Stop date: 12/16/12 18:09:00 glucagon 1 mg, Route: IM, IM No Longer [facility] Drug form: Active 2012 Medical PDR/INJ, PRN, Center Dosing Weight 100, kg, PRN Blood Glucose Results, Start date: 11/16/12 18:10:00, Duration: 30 day, Stop date: 12/16/12 18:09:00 [place] 5/325 1 tab, Route: PO No Longer [place] oral tablet PO, Drug Form: Active 2012 Medical TAB, Dosing Center Weight 100, kg, Q6H, PRN as needed for pain, Start date: 11/16/12 18:07:00, Duration: 30 day, Stop date: 12/16/12 18:06:00 tramadol 50 mg 50 mg, 1 tab, PO No Longer [facility] oral tablet Route: PO, Drug Active [...] 8 mg, 2 tab, PO No Longer [place] [facility] Route: PO, Drug Active 2012 Medical form: TABDIS, Center Q8H, Dosing Weight 100, kg, PRN Nausea & Vomiting, Start date: 11/16/12 18:01:00, Stop date: 12/16/12 18:00:00, nauea ondansetron 8 8 mg, 1 tab, PO, PO Active [place] [facility] mg oral tablet, Q8H, PRN, 2012 Medical disintegrating Dissolve under Center tongue, 10 tab, as needed for nausea/vomiting, Substitution AllowedDissolve under tongue Effient 10 mg 10 mg, 1 tab, PO Active [facility] oral tablet PO, Daily, 30 2012 Medical tab, Center Substitution Allowed, TAB tramadol 50 mg 50 mg, 1 tab, PO Active [facility] [place] oral tablet PO, Q4H, PRN, 60 2012 Medical tab, for pain, Center Substitution Allowed, TAB clonazepam 0.5 0.5 mg, 1 tab, PO Active [facility] [place] mg oral tablet PO, TID, 2012 [...] Duration: 1 doses or times, Dose=2.2ml/kg, Max [id number] -- "To be infused by Radiology Staff ONLY"Dose=2.2ml/ kg, Max [id number] -- "To be infused by Radiology Staff [...] 1 mg, 0.5 mL, IVP No Longer [place] [facility] Route: IVP, Drug Active 2012 Medical [...] mg, 1 tab, SL No Longer [facility] [place] 0.4 mg Route: SL, Drug Active 2012 Medical sublingual form: TAB, ONCE, Center tablet Dosing Weight 100, kg, Start date: 11/16/12 13:30:00, Stop date: 11/16/12 13:30:00 aspirin 324 mg, 4 tab, CHEW No Longer [facility] Route: CHEW, Active 2012 Medical Drug form: Center CHEWTAB, ONCE, Dosing Weight 100, kg, Priority: STAT, Start date: 11/16/12 13:29:00, Stop date: 11/16/12 13:29:00 Zofran 8 mg, 4 mL, IVP No Longer [facility] Route: IVP, Drug Active 2012 Medical form: INJ, ONCE, Center Dosing Weight 100, kg, Priority: STAT, Start date: 11/16/12 13:17:00, Stop date: 11/16/12 13:17:00 Saline Flush 5 mL, Route: IVP No Longer [facility] 0.9% IVP, Drug Form: Active 2012 Medical INJ, Dosing Center Weight 100, kg, Q8H, PRN Line Flush, Start date: 11/16/12 13:16:00, Duration: 30 day, Stop date: 12/16/12 13:15:00, Administer at least once every 8 hoursAdminister at least once every 8 hours Reglan 10 mg 10 mg, 1 tab, PO Active [facility] oral tablet PO, TID-Before 2012 Medical Meals, PRN, 42 Center tab, nausea, Substitution Allowed, TAB [place] 5/325 1 tab, PO, Q6H, PO Active [facility] oral tablet PRN, 10 tab, 2012 Medical Pain, Center Substitution Allowed, Maintenance, TAB ondansetron 8 8 mg, 1 tab, PO, PO Active [facility] 11[facility] [place] mg oral tablet, Q8H, PRN, 60 2012 Medical disintegrating tab, 1, 1, Center Nausea, Substitution Allowed, TABDIS insulin detemir 12 unit, 0.12 SUB-Q Active [facility] 100 units/mL mL, SUB-Q, 2012 Medical subcutaneous Bedtime, 4 mL, Center solution Substitution Allowed, INJ insulin detemir 15 unit, 0.15 SUB-Q Active [facility] [place] 100 units/mL mL, SUB-Q, 2012 Medical subcutaneous Daily, 5 mL, Center solution Substitution Allowed, INJ Zofran 4 mg, 1 tab, PO No Longer [facility] [place] Route: PO, Drug Active 2012 Medical form: TAB, Q8H, Center Dosing Weight 100, kg, Start date: 11/14/12 16:00:00, Duration: 30 day, Stop date: 12/14/12 8:00:00 Reglan 10 mg 10 mg, 1 tab, PO No Longer [facility] [place] oral tablet Route: PO, Drug Active 2012 Medical form: TAB, Center TID-Before Meals, Dosing Weight 100, kg, Start date: 11/14/12 11:30:00, Duration: 30 day, Stop date: 12/14/12 7:30:00 calcium 2,000 mg, 20 mL, IVPB No Longer [facility] gluconate + Route: IVPB, Active 2012 Medical Sodium Chloride Drug form: INJ, Center 0.9% IV 100 mL Q2H, Dosing Weight 100, kg, Total nuff=8470 mg, Start date: 11/14/12 8:00:00, Duration: 2 doses or times, Stop date: 11/14/12 10:00:00 magnesium 2 gm, 50 mL, IVPB No Longer [facility] sulfate Route: IVPB, Active 2012 Medical [...] 20 mEq, 100 mL, IVPB No Longer [facility] chloride Route: IVPB, Active 2012 Medical Drug form: INJ, Center ONCE, Dosing Weight 100, kg, Total dose=20mEq, Start date: 11/13/12 7:58:00, Duration: 1 doses or times, Stop date: 11/13/12 7:58:00, For K=3.5 - 3.9 mEq/LFor K=3.5 - 3.9 mEq/L calcium 1,000 mg, 10 mL, IVPB No Longer [facility] gluconate + Route: IVPB, Active 2012 Medical Sodium Chloride ONCE, Dosing Center 0.9% IV 50 mL Weight 100, kg, Start date: 11/13/12 7:56:00, Stop date: 11/13/12 7:56:00 Reglan 10 mg, 2 mL, IVP No Longer [facility] Route: IVP, Drug Active 2012 Medical form: INJ, Center Before Meals & Bedtime, Dosing Weight 100, kg, Start date: 11/12/12 16:30:00, Duration: 30 day, Stop date: 12/12/12 11:30:00 [place] 5/325 1 tab, Route: PO No Longer [facility] [place] oral tablet PO, Drug Form: Active jaida 2012 Medical TAB, Dosing Center Weight 100, kg, Q6H, PRN Pain, Start date: 11/12/12 16:07:00, Duration: 30 day, Stop date: 12/12/12 16:06:00 Reglan 10 mg, Route: IVP No Longer [facility] IVP, Q6H, Dosing Active 2012 Medical Weight 100, kg, Center PRN Nausea & Vomiting, Start date: 11/12/12 12:35:00, Duration: 30 day, Stop date: 12/12/12 12:34:00 insulin detemir 15 unit, Route: SUB-Q No Longer [facility] SUB-Q, ONCE, Active 2012 Medical Dosing Weight Center 100, kg, Priority: NOW, Start date: 11/12/12 10:38:00, Stop date: 11/12/12 10:38:00 heparin 7,500 unit, 1.5 SUB-Q No Longer [facility] mL, Route: Active 2012 Medical SUB-Q, Drug Center form: INJ, Q8H, Start date: 11/11/12 18:00:00, Duration: 30 day, Stop date: 12/11/12 16:00:00 Levemir FlexPen 15 unit, 0.15 SUB-Q No Longer [facility] 11[facility] mL, Route: Active 2012 Medical SUB-Q, Drug Center form: INJ, Daily, Dosing Weight 100, kg, Start date: 11/11/12 10:00:00, Stop date: 12/11/12 9:00:00 magnesium 2 gm, 50 mL, IVPB No Longer [facility] sulfate Route: IVPB, Active 2012 Medical Drug form: INJ, Center ONCE, Dosing Weight 100, kg, Total dose=2 gm, Start date: 11/11/12 9:04:00, Duration: 1 doses or times, Stop date: 11/11/12 9:04:00 insulin detemir 20 unit, 0.2 mL, SUB-Q No Longer [facility] Route: SUB-Q, Active 2012 Medical Drug form: INJ, Center Daily, Dosing Weight 100, kg, Start date: 11/11/12 9:00:00, Stop date: 12/10/12 9:00:00 Toradol 15 15 mg, 1 mL, IV No Longer [facility] 11/[facility] mg/mL Route: IV, Drug 2012 Medical injectable form: INJ, ONCE, Center solution Dosing Weight 100, kg, Start date: 11/11/12 0:56:00, Stop date: 11/11/12 0:56:00 Zofran 4 mg, 2 mL, IV No Longer [facility] 11[facility] Route: IV, Drug Active 2012 Medical form: INJ, Q8H, Center Dosing Weight 100, kg, Start date: 11/11/12 0:00:00, Duration: 30 day, Stop date: 12/10/12 16:00:00 normal saline 1,000 mL, Rate: IV No Longer [facility] 0.9% IV 1,000 100 ml/hr, Active 2012 Medical mL Infuse over: 10 Center hr, Route: IV, kg, Total Volume: 1,000, Start date: 11/10/12 20:17:00, Duration: 30 day, Stop date: 12/10/12 20:16:00 Sodium Chloride 1,000 mL, Rate: IV No Longer [facility] [place] 0.9% (Bolus) IV 1,000 ml/hr, Active 2012 Medical 1,000 mL Infuse over: 1 Center hr, Route: IV, kg, Total Volume: 1,000, Priority: STAT, Start date: 11/10/12 20:17:00, Duration: 1 doses or times, Stop date: 11/10/12 21:16:00, Bolus DoseBolus Dose insulin detemir 10 unit, 0.1 mL, SUB-Q No Longer [facility] Route: SUB-Q, Active 2012 Medical Drug form: INJ, Center ONCE, Dosing Weight 100, kg, Priority: NOW, Start date: 11/10/12 11:40:00, Stop date: 11/10/12 11:40:00 Zofran ODT 4 mg, 1 tab, PO No Longer [facility] [place] Route: PO, Drug Active 2012 Medical form: TABDIS, Center Q8H, Dosing Weight 100, kg, PRN Nausea, Start date: 11/10/12 11:04:00, Duration: 30 day, Stop date: 12/10/12 11:03:00 Phenergan 12.5 mg, 0.5 mL, IM No Longer Ahmad [place] Route: IM, Drug Active 2012 Medical form: INJ, PRN, Center Dosing Weight 100, kg, PRN as needed for nausea/vomiting, Start date: 11/10/12 10:00:00, Duration: 30 day, Stop date: 12/10/12 10:59:00 insulin detemir 16 unit, 0.16 SUB-Q No Longer [place] mL, Route: Active 2012 Medical SUB-Q, Drug Center form: INJ, ONCE, Dosing Weight 100, kg, Start date: 11/10/12 0:20:00, Stop date: 11/10/12 0:20:00 NovoLog 6 unit, 0.06 mL, SUB-Q No Longer [facility] Route: SUB-Q, Active 2012 Medical Drug form: SOLN, Center TID-Before Meals, Dosing Weight 100, kg, Start date: 11/09/12 16:30:00, Duration: 30 day, Stop date: 12/09/12 11:30:00 insulin aspart 7 unit, 0.07 mL, SUB-Q No Longer Loida [facility] Route: SUB-Q, Active 2012 Medical Drug form: SOLN, Center ONCE, Dosing Weight 100, kg, Start date: 11/09/12 13:24:00, Stop date: 11/09/12 13:24:00 insulin detemir 20 unit, 0.2 mL, SUB-Q No Longer Juanjo [facility] Route: SUB-Q, Active 2012 Medical Drug form: INJ, Center Daily, Dosing Weight 100, kg, Start date: 11/09/12 9:00:00, Duration: 30 day, Stop date: 12/08/12 9:00:00 morphine 1 mg, 0.5 mL, IV No Longer Chavez [facility] Sulfate Route: IV, Drug Active 2012 Medical form: INJ, ONCE, Center Dosing Weight 100, kg, Start date: 11/09/12 5:28:00, Stop date: 11/09/12 5:28:00 insulin detemir 12 unit, 0.12 SUB-Q No Longer Olejarski [facility] mL, Route: Active 2012 Medical SUB-Q, Drug Center form: INJ, Bedtime, Dosing Weight 100, kg, Start date: 11/08/12 21:00:00, Stop date: 12/07/12 21:00:00 morphine 2 mg, 1 mL, IVP No Longer Quintanilla [facility] Sulfate Route: IVP, Drug Active 2012 Medical form: INJ, ONCE, Center Dosing Weight 100, kg, Start date: 11/08/12 18:34:00, Stop date: 11/08/12 18:34:00 ampicillin + 1,500 mg, Route: IVPB No Longer Aristides [facility] Sodium Chloride IVPB, Drug form: Active 2012 Medical 0.9% IV 100 mL PDR/INJ, [id number], Center Dosing Weight 100, kg, Start date: 11/08/12 18:00:00, Duration: 30 day, Stop date: 12/08/12 12:00:00 ciprofloxacin 500 mg, 1 tab, PO No Longer [facility] Route: PO, Drug Active 2012 Medical form: TAB, Center [id number], Dosing Weight 100, kg, Start date: 11/08/12 17:00:00, Duration: 30 day, Stop date: 12/08/12 5:00:00 Rocephin 1 gm, Route: IVPB No Longer Janet [facility] IVPB, Drug form: Active 2012 Medical PDR/INJ, ONCE, Center Dosing Weight 100, kg, Start date: 11/08/12 13:11:00, Stop date: 11/08/12 13:11:00 insulin aspart 2 unit, 0.02 mL, SUB-Q No Longer Domingojapowerki [facility] Route: SUB-Q, Active 2012 Medical Drug form: SOLN, Center TID-Before Meals, Dosing Weight 100, kg, PRN Blood Glucose Results, Start date: 11/08/12 10:45:00, Duration: 30 day, Stop date: 12/08/12 10:44:00 insulin aspart 2 unit, 0.02 mL, SUB-Q No Longer Olejapowerki [facility] Route: SUB-Q, Active 2012 Medical Drug form: SOLN, Center TID-Before Meals, Dosing Weight 100, kg, PRN Blood Glucose Results, Start date: 11/07/12 18:47:00, Duration: 30 day, Stop date: 12/07/12 18:46:00 magnesium 2 gm, 50 mL, IVPB No Longer [facility] sulfate Route: IVPB, Active 2012 Medical Drug form: INJ, Center Q2H, Dosing Weight 100, kg, Start date: 11/07/12 8:00:00, Duration: 2 doses or times, Stop date: 11/07/12 10:00:00, For Mg=1.5 - 1.7 mg/dLFor Mg=1.5 - 1.7 mg/dL magnesium 2 gm, Route: IVPB No Longer Loida [facility] sulfate IVPB, Drug form: Active 2012 Medical SOLN, ONCE, Center Dosing Weight 100, kg, Start date: 11/07/12 7:42:00, Duration: 1 doses or times, Stop date: 11/07/12 7:42:00, For Mg=1.8 - 2 mg/dLFor Mg=1.8 - 2 mg/dL Protonix 40 mg, Route: IVP No Longer Quintanilla [facility] IVP, Drug form: Active 2012 Medical INJ, Before Center Breakfast, Dosing Weight 100, kg, Start date: 11/07/12 7:30:00, Duration: 30 day, Stop date: 12/06/12 7:30:00 insulin aspart 10 unit, 0.1 mL, SUB-Q No Longer Ahmad [facility] Route: SUB-Q, 2012 Medical Drug form: [facility], [place] ONCE, Dosing Weight 100, kg, Start date: 11/06/12 13:32:00, Stop date: 11/06/12 13:32:00 adenosine 84 mg, Route: IVP No Longer Ahmad [facility] IVP, ONCE, Active 2012 Medical Dosing Weight Center 100, kg, Priority: Routine, Start date: 11/06/12 10:20:00, Stop date: 11/06/12 10:20:00 Insulin regular 10 unit, 0.1 mL, SUB-Q No Longer [facility] Route: SUB-Q, 2012 Medical Drug form: [facility], [place] ONCE, Dosing Weight 100, kg, Start date: 11/06/12 9:47:00, Stop date: 11/06/12 9:47:00 insulin aspart 10 unit, 0.1 mL, SUB-Q No Longer [facility] Route: SUB-Q, 2012 Medical Drug form: [facility] ONCE, Dosing Weight 100, kg, Start date: 11/06/12 9:43:00, Stop date: 11/06/12 9:43:00 Lactated 1,000 mL, Rate: IV No Longer [facility] Ringers (Bolus) 1,000 ml/hr, Active 2012 Medical IV 1,000 mL Infuse over: 1 Center hr, Route: IV, kg, Total Volume: 1,000, Bolus Dose, Priority: STAT, Start date: 11/06/12 9:14:00, Duration: 1 doses or times, Stop date: 11/06/12 10:13:00 Insulin regular 9 unit, 0.09 mL, SUB-Q No Longer Ada [facility] Route: [...] mg, 2 mL, IVP No Longer Aristides [facility] Route: IVP, Drug Active 2012 Medical form: INJ, Q6H, Center Dosing Weight 100, kg, PRN Nausea & Vomiting, Start date: 11/06/12 1:49:00, Duration: 30 day, Stop date: 12/06/12 1:48:00 Benadryl 25 mg, 0.5 mL, IV No Longer [facility] Route: IV, Drug Active 2012 Medical form: INJ, Q4H, Center Dosing Weight 100, kg, PRN as needed for nausea/vomiting, Start date: 11/06/12 1:44:00, Duration: 30 day, Stop date: 12/06/12 1:43:00 Phenergan 12.5 mg, 0.5 mL, IVPB No Longer [facility] Route: IVPB, Active 2012 Medical Drug form: INJ, Center Q6H, Dosing Weight 100, kg, PRN Nausea & Vomiting, Start date: 11/06/12 1:43:00, Stop date: 12/06/12 1:42:00 Benadryl 25 mg, 1 cap, PO No Longer [facility] Route: PO, Drug Active 2012 Medical form: CAP, TID, Center Dosing Weight 100, kg, PRN Nausea, Start date: 11/06/12 0:31:00, Duration: 30 day, Stop date: 12/06/12 0:30:00 labetalol 20 mg, 4 mL, IVP No Longer [facility] Route: IVP, Drug Active 2012 Medical form: INJ, ONCE, Center Dosing Weight 100, kg, Start date: 11/06/12 0:25:00, Stop date: 11/06/12 0:25:00 simvastatin 40 mg, 1 tab, PO No Longer [facility] Route: PO, Drug Active 2012 Medical form: TAB, Center Bedtime, Dosing Weight 100, kg, Start date: 11/05/12 23:00:00, Duration: 30 day, Stop date: 12/05/12 21:00:00 lisinopril 20 mg, 1 tab, PO No Longer [facility] Route: PO, Drug Active 2012 Medical form: TAB, Q12H, Center Dosing Weight 100, kg, Start date: 11/05/12 23:00:00, Duration: 30 day, Stop date: 12/05/12 21:00:00 insulin detemir 20 unit, 0.2 mL, SUB-Q No Longer Olejarski [facility] Route: SUB-Q, Active 2012 Medical Drug form: INJ, Center Q12H, Dosing Weight 100, kg, Start date: 11/05/12 23:00:00, Stop date: 12/05/12 21:00:00 magnesium oxide 400 mg, 1 tab, PO Active [place] 400 mg oral PO, Daily, 2012 Medical tablet tab, Center Substitution Allowed, TAB metoprolol 100 100 mg, 1 tab, PO Active [facility] mg oral tablet, PO, Daily, 2012 Medical extended tab, Center release Substitution Allowed NIFEdipine 90 90 mg, 1 tab, PO Active [facility] mg oral tablet, PO, Daily, 30 2012 Medical extended tab, Center release Substitution Allowed, ERTAB prasugrel 10 mg 10 mg, 1 tab, PO Active [facility] oral tablet PO, Daily, 2012 Medical tab, Center Substitution Allowed, TAB Cymbalta 60 mg, Daily, Active [facility] Substitution 2012 Medical Allowed Center tramadol 50 mg 50 mg, 1 tab, PO No Longer [facility] oral tablet Route: PO, Drug Active 2012 Medical form: TAB, Q4H, Center Dosing Weight 100, kg, PRN For Pain, Start date: 11/05/12 22:39:00, Duration: 30 day, Stop date: 12/05/12 22:38:00 promethazine 25 mg, 1 tab, PO No Longer [facility] Route: PO, Drug Active 2012 Medical [...] 5 ml, Route: IVP No Longer [place] 0.9% IVP, Drug Form: Active 2012 Medical INJ, Dosing Center Weight 104.545, kg, PRN, PRN Line Flush, Start date: 11/05/12 22:14:00, Duration: 30 day, Stop date: 12/05/12 23:13:00 Sodium Chloride 500 mL, Rate: IV No Longer [place] 0.9% (Bolus) IV 2,000 ml/hr, Active 2012 Medical 500 mL Infuse over: 15 Center minutes, Route: IV, kg, Total Volume: 500, Priority: STAT, Start date: 11/05/12 22:14:00, Duration: 1 doses or times, Stop date: 11/05/12 22:28:00 nitroglycerin 0.4 mg, 1 tab, SL No Longer [facility] SL Tab Route: SL, Drug Active 2012 Medical form: TAB, Center Q5Min, Dosing Weight 104.545, kg, PRN Chest Pain, Start date: 11/05/12 22:14:00, Duration: 3 doses or times, Stop date: Limited # of times Phenergan 12.5 mg, Route: IVPB No Longer Dilan [place] IVPB, ONCE, Active 2012 Medical Dosing Weight Center 104.545, kg, Priority: STAT, Start date: 11/05/12 22:05:00, Stop date: 11/05/12 22:05:00 Phenergan 12.5 mg, 0.5 mL, IVPB No Longer Dilan [facility] Route: IVPB, Active 2012 Medical Drug form: INJ, Center ONCE, Dosing Weight 104.545, kg, Priority: STAT, Start date: 11/05/12 21:08:00, Stop date: 11/05/12 21:08:00 carvedilol 12.5 mg, 1 tab, PO No Longer Dilan [facility] Route: PO, Drug Active 2012 Medical form: TAB, ONCE, Center Dosing Weight 104.545, kg, Start date: 11/05/12 19:20:00, Stop date: 11/05/12 19:20:00 Effient 10 mg, 1 tab, PO No Longer Dilan [facility] Route: PO, Drug Active 2012 Medical form: TAB, ONCE, Center Dosing Weight 104.545, kg, Start date: 11/05/12 19:16:00, Stop date: 11/05/12 19:16:00 ondansetron 4 mg, 2 mL, IVP No Longer Dilan [facility] Route: IVP, Drug Active 2012 Medical form: INJ, ONCE, Center Dosing Weight 104.545, kg, Priority: STAT, Start date: 11/05/12 19:14:00, Stop date: 11/05/12 19:14:00 aspirin 324 mg, 4 tab, PO No Longer Dilan [facility] Route: PO, Drug Active 2012 Medical form: [place], Center ONCE, Dosing Weight 104.545, kg, Priority: STAT, Start date: 11/05/12 19:14:00, Stop date: 11/05/12 19:14:00 Saline Flush 5 mL, Route: IVP No Longer Dilan [facility] 0.9% IVP, Drug Form: Active 2012 [...] 100 units/mL SUB-Q, 2012 Medical subcutaneous TID-Before [place] solution Meals, 1 vial, 2, 2, Substitution [...] 25 25 mg, 1 tab, PO Active [facility] [place] mg oral tablet PO, Q6H, PRN, 60 2012 Medical tab, 1, 1, Center Nausea & Vomiting, Substitution Allowed, TAB prasugrel 10 mg 10 mg, 1 tab, PO Active [facility] [place] oral tablet PO, Daily, 30 2012 Medical tab, 1, 1, Center Substitution Allowed, TAB ondansetron 8 8 mg, 1 tab, PO, PO Active [facility] 10/31/ [place] mg oral tablet, Q8H, PRN, 60 2012 Medical disintegrating tab, 1, 1, Center Nausea, Substitution Allowed, TABDIS NIFEdipine 90 90 mg, 1 tab, PO Active [facility] 10/31/ [place] mg oral tablet, PO, Daily, 30 2012 Medical extended tab, 1, 1, Center release Substitution Allowed, ERTAB Toprol-XL 100 100 mg, 1 tab, PO Active [facility] 10/31/ [facility] mg oral tablet, PO, Daily, 30 2012 Medical extended tab, 1, 1, Center release Substitution Allowed, ERTAB magnesium oxide 400 mg, 1 tab, PO Active [facility] [place] 400 mg oral PO, Daily, 30 2012 Medical tablet tab, 1, 1, Center Substitution Allowed, TAB lisinopril 20 20 mg, 1 tab, PO Active [facility] mg oral tablet PO, Q12H, 60 2012 Medical tab, 1, 1, Center Substitution Allowed, TAB aspirin 81 mg 81 mg, 1 tab, PO Active [facility] tablet, enteric PO, Daily, 30 2012 Medical coated tab, 1, 1, Center Substitution Allowed, ECTAB insulin aspart 6 unit, 0.06 mL, SUB-Q No Longer Man[place] Route: SUB-Q, Active 2012 Medical Drug form: NIRU, [place] TID-Before Meals, Dosing Weight 78.2, kg, PRN Blood Glucose Results, Start date: 10/31/12 8:40:00, Duration: 30 day, Stop date: 11/30/12 8:39:00 Phenergan 25 mg, 1 tab, PO No Longer Steward [place] Route: PO, Drug Active 2012 Medical form: [...] mg, 0.4 mL, IV No Longer Funez Danay [facility] Route: IV, Drug Active 2012 Medical form: INJ, ONCE, Center Dosing Weight 78.2, kg, Start date: 10/30/12 5:42:00, Stop date: 10/30/12 5:42:00 tramadol 50 mg 50 mg, 1 tab, PO No Longer [facility] oral tablet Route: PO, Drug Active 2012 Medical form: TAB, Q4H, Center Dosing Weight 78.2, kg, PRN as needed for pain, Start date: 10/29/12 9:45:00, Duration: 30 day, Stop date: 11/28/12 9:44:00 Toradol 15 15 mg, 0.5 mL, IV No Longer [facility] mg/mL Route: IV, Drug Active 2012 Medical injectable form: INJ, ONCE, Center solution Dosing Weight 78.2, kg, Start date: 10/29/12 6:54:00, Stop date: 10/29/12 6:54:00 Toradol 15 15 mg, 0.5 mL, IV No Longer [facility] mg/mL Route: IV, Drug Active 2012 [...] SUB-Q, Active 2012 Medical Drug form: SOLN, [place] TID-Before Meals, Start date: 10/28/12 7:30:00, Stop [...] labetalol 20 mg, Route: IVP No Longer [facility] IVP, Drug form: Active 2012 Medical INJ, ONCE, Center Dosing Weight 78.2, kg, Start date: 10/27/12 19:28:00, Stop date: 10/27/12 19:28:00 labetalol 20 mg, 4 mL, IVP No Longer [facility] Route: IVP, Drug Active 2012 Medical form: INJ, ONCE, Center Dosing Weight 78.2, kg, Start date: 10/27/12 17:28:00, Stop date: 10/27/12 17:28:00 Benadryl 25 mg, 1 cap, PO No Longer [facility] Route: PO, Drug Active 2012 Medical form: CAP, ONCE, Center Dosing Weight 78.2, kg, Start date: 10/27/12 17:28:00, Stop date: 10/27/12 17:28:00 Reglan 10 mg 10 mg, Route: PO No Longer [facility] oral tablet PO, Drug form: Active 2012 Medical TAB, Before Center Meals & Bedtime, Dosing Weight 78.2, kg, Start date: 10/27/12 16:30:00, Duration: 30 day, Stop date: 11/26/12 11:30:00 Reglan 5 mg, 1 mL, IV No Longer [facility] Route: IV, Drug Active 2012 Medical form: INJ, Q8H, Center Dosing Weight 78.2, kg, Start date: 10/27/12 16:00:00, Duration: 30 day, Stop date: 11/26/12 8:00:00 Reglan 5 mg, 1 mL, IV No Longer [facility] Route: IV, Drug Active 2012 Medical form: INJ, Q8H, Center Dosing Weight 78.2, kg, PRN Nausea, Start date: 10/27/12 13:08:00, Duration: 30 day, Stop date: 11/26/12 13:07:00 lisinopril 20 mg, 1 tab, PO No Longer [facility] Route: PO, Drug Active 2012 Medical form: TAB, Q12H, Center Dosing Weight 78.2, kg, Start date: 10/27/12 10:00:00, Duration: 30 day, Stop date: 11/26/12 9:00:00 ergocalciferol 50,000 IntlUnit, PO No Longer Man[facility]az [facility] 1 cap, Route: Active 2012 Medical PO, Drug form: Center CAP, Daily, Dosing Weight 78.2, kg, Start date: 10/27/12 9:00:00, Duration: 4 day, Stop date: 10/30/12 9:00:00 magnesium oxide 400 mg, 1 tab, PO No Longer Gee [facility] Route: PO, Drug Active 2012 Medical form: TAB, Center Daily, Dosing Weight 78.2, kg, Start date: 10/27/12 9:00:00, Duration: 30 day, Stop date: 11/25/12 9:00:00 Toprol-XL 100 100 mg, 1 tab, PO No Longer [place] [facility] mg oral tablet, Route: PO, Drug Active 2012 Medical extended form: ERTAB, [place] release Daily, Start date: 10/27/12 9:00:00, Duration: 30 day, Stop date: 11/25/12 9:00:00 insulin aspart 7 unit, Route: SUB-Q No Longer Man[facility]az [facility] SUB-Q, Drug Active 2012 Medical form: SOLN, [place] TID-Before Meals, Dosing Weight 78.2, kg, Start date: 10/26/12 12:00:00, Duration: 30 day, Stop date: 11/25/12 11:30:00 Insulin regular 10 unit, 0.1 mL, SUB-Q No Longer [facility] Route: SUB-Q, Active 2012 Medical Drug form: SOLN, [place] ONCE, Dosing Weight 78.2, kg, Start date: 10/26/12 10:32:00, Stop date: 10/26/12 10:32:00 NIFEdipine 90 mg, 1 tab, PO No Longer [facility] extended Route: PO, Drug Active 2012 Medical release form: ERTAB, [place] Daily, Dosing Weight 78.2, kg, Start date: 10/26/12 9:00:00, Duration: 30 day, Stop date: 11/24/12 9:00:00 metoprolol 25 mg, 1 tab, PO No Longer [place] [facility] tartrate Route: PO, Drug Active 2012 Medical form: TAB, Q12H, Center Dosing Weight 78.2, kg, Start date: 10/26/12 9:00:00, Duration: 30 day, Stop date: 11/24/12 21:00:00 Reglan 10 mg, 1 tab, PO No Longer [place] [facility] Route: PO, Drug Active 2012 Medical form: TAB, Center Before Meals & Bedtime, Dosing Weight 78.2, kg, Start date: 10/25/12 16:30:00, Duration: 30 day, Stop date: 11/24/12 11:30:00 potassium 20 mEq, 100 mL, IVPB No Longer [facility] chloride Route: IVPB, Active 2012 Medical Drug form: INJ, Center Q2H, Dosing Weight 78.2, kg, Total dose=40 mEq, Start date: 10/25/12 16:00:00, Duration: 2 doses or times, Stop date: 10/25/12 18:00:00 magnesium 2 gm, 50 mL, IVPB No Longer [facility] sulfate Route: IVPB, Active 2012 Medical Drug form: INJ, Center Q2H, Dosing Weight 78.2, kg, Total dose=4 gm, Start date: 10/25/12 16:00:00, Duration: 2 doses or times, Stop date: 10/25/12 18:00:00 potassium 40 mEq, 2 tab, PO No Longer [facility] chloride 20 mEq Route: PO, Drug [...] mL 1,000 mL, Rate: IV No Longer [facility] 100 ml/hr, Active 2012 Medical Infuse over: 10 Center hr, Route: IV, kg, Total Volume: 1,000, Start date: 10/25/12 13:52:00, Duration: 30 day, Stop date: 11/24/12 13:51:00 atenolol 100 mg, 1 tab, PO No Longer [place] [facility] Route: PO, Drug Active 2012 Medical form: TAB, Center Daily, Dosing Weight 78.2, kg, Start date: 10/25/12 9:00:00, Duration: 30 day, Stop date: 11/23/12 9:00:00 Protonix 40 mg, Route: IVP No Longer [facility] IVP, Drug form: Active 2012 Medical INJ, Daily, Center Dosing Weight 78.2, kg, Start date: 10/25/12 9:00:00, Duration: 30 day, Stop date: 11/23/12 9:00:00 NovoLog FlexPen 6 unit, 0.06 mL, SUB-Q No Longer [facility] Route: SUB-Q, Active 2012 Medical Drug form: SOLN, Center TID-Before Meals, Start date: 10/25/12 7:30:00, Duration: 30 day, Stop date: 11/23/12 16:30:00 insulin lispro 6 unit, Route: SUB-Q No Longer [facility] SUB-Q, Active 2012 Medical TID-Before Center Meals, Dosing Weight 78.2, kg, Start date: 10/25/12 7:30:00, Duration: 30 day, Stop date: 11/23/12 16:30:00 Lactated 1,000 mL, Rate: IV No Longer Dee Dee [facility] Ringers IV 250 ml/hr, Active 2012 Medical 1,000 mL Infuse over: 4 Center hr, Route: IV, kg, Total Volume: 1,000, Start date: 10/25/12 5:50:00, Duration: 30 day, Stop date: 11/24/12 5:49:00 Lactated 1,000 mL, Rate: [facility] Ringers (Bolus) 100 ml/hr, Active 2012 Medical IV 1,000 mL Infuse over: 10 Center hr, Route: IV, kg, Total Volume: 1,000, Start date: 10/25/12 5:50:00, Duration: 1 doses or times, Stop date: 10/25/12 15:49:00 insulin aspart 9 unit, 0.09 mL, SUB-Q No Longer [facility] Route: SUB-Q, Active 2012 Medical Drug form: SOLN, Center TID-Before Meals, Dosing Weight 78.2, kg, PRN Blood Glucose Results, Start date: 10/25/12 3:53:00, Duration: 30 day, Stop date: 11/24/12 3:52:00 glucagon 1 mg, Route: IM, IM No Longer Dee Dee [facility] Drug form: Active 2012 Medical PDR/INJ, PRN, Center Dosing Weight 78.2, kg, PRN Blood Glucose Results, Start date: 10/25/12 3:53:00, Duration: 30 day, Stop date: 11/24/12 4:52:00 Dextrose 50% 12.5 gm, 25 mL, IVP No Longer [facility] Syringe Route: IVP, Drug Active 2012 Medical Form: INJ, Center Dosing Weight 78.2, kg, PRN, PRN Blood Glucose Results, Start date: 10/25/12 3:53:00, Duration: 30 day, Stop date: 11/24/12 4:52:00 Dextrose 50% 25 mL, Route: IVP No Longer [facility] Syringe IVP, Dosing Active 2012 Medical Weight 78.2, kg, Center PRN, PRN Blood Glucose Results, Start date: 10/25/12 3:52:00, Duration: 30 day, Stop date: 11/24/12 4:51:00 glucagon 1 mg, Route: IM, IM No Longer [facility] PRN, Dosing Active 2012 Medical Weight 78.2, kg, Center PRN Blood Glucose Results, Start date: 10/25/12 3:52:00, Duration: 30 day, Stop date: 11/24/12 4:51:00 Neutra-Phos 2 pkt, Route: PO No Longer Neeru [facility] PO, Drug Form: Active 2012 Medical PDR/REC, Dosing Center Weight 78.2, kg, ONCE, Start date: 10/25/12 1:07:00, Stop date: 10/25/12 1:07:00 insulin detemir 25 unit, 0.25 SUB-Q No Longer [facility] mL, Route: Active 2012 Medical SUB-Q, Drug Center form: INJ, Q12H, Dosing Weight 78.2, kg, Priority: NOW, Start date: 10/25/12 1:06:00, Stop date: 11/23/12 21:00:00 heparin 5000 5,000 unit, 1 SUB-Q No Longer Neeru [facility] units/mL mL, Route: Active 2012 Medical injectable SUB-Q, Drug Center solution form: INJ, Q8H, Dosing Weight 78.2, kg, Start date: 10/25/12 0:00:00, Duration: 30 day, Stop date: 11/23/12 16:00:00 Effient 10 mg, Route: PO No Longer Tanikella [facility] PO, Q12H, Dosing Active 2012 Medical Weight 78.2, kg, Center Start date: 10/24/12 21:00:00, Duration: 30 day, Stop date: 11/23/12 9:00:00 Saline Flush 10 mL, Route: IVP No Longer Martínez [facility] 0.9% IVP, Drug Form: Active 2012 Medical INJ, Dosing Center Weight 78.2, kg, Q12H, Start date: 10/24/12 21:00:00, Duration: 30 day, Stop date: 11/23/12 9:00:00 Neutra-Phos 2 pkt, Route: PO No Longer Funez [facility] PO, Drug Form: Active 2012 Medical PDR/REC, Dosing Center Weight 78.2, kg, ONCE, Start date: 10/24/12 20:35:00, Stop date: 10/24/12 20:35:00 potassium 20 mEq, 100 mL, IVPB No Longer Funez K[facility] chloride Route: IVPB, Active 2012 Medical [...] unit, SUB-Q, SUB-Q No Longer Fei TID-Before Active 2012 Medical Meals, Center Substitution [...] Lactated 1,000 mL, Rate: IV [facility] Ringers 150 ml/hr, Active 2012 Medical Injection IV Infuse over: 6.7 Center 1,000 mL hr, Route: IV, kg, Total Volume: 1,000, Start date: 10/24/12 11:50:00, Duration: 30 day, Stop date: 11/23/12 11:49:00 lisinopril 20 mg, 1 tab, PO No Longer [facility] Route: PO, Drug Active 2012 [...] tab, PO No Longer [facility] Route: PO, Drug Active 2012 Medical form: TAB, Center Daily, Dosing Weight 78.2, kg, Priority: NOW, Start date: 10/24/12 10:53:00, Duration: 30 day, Stop date: 11/23/12 9:00:00 potassium 40 mEq, 2 tab, PO No Longer [facility] chloride Route: PO, Drug Active [...] 24 hr aspirin 200 mg, 1 supp, [place] No Longer Orozco [facility] Route: MN, Drug Active 2012 Medical form: SUPP, Center [...] 2,300 unit, 2.3 IV No Longer [place] mL, Route: IV, Active 2012 Medical Drug form: INJ, Center PRN, PRN Abnormal Lab Result, Start date: 10/23/12 19:37:00, Duration: 30 day, Stop date: 11/22/12 20:36:00 heparin 4,000 unit, 4 IV No Longer Dimitri [facility] mL, Route: IV, Active 2012 Medical [...] Duration: 1 doses or times, Dose=2.2ml/kg, Max [id number] -- "To be infused by Radiology Staff ONLY"Dose=2.2ml/ kg, Max [id number] -- "To be infused by Radiology Staff [...] Duration: 1 doses or times, Dose=2.2ml/kg, Max [id number] -- "To be infused by Radiology Staff ONLY"Dose=2.2ml/ kg, Max [id number] -- "To be infused by Radiology Staff ONLY" Insulin 100 mL, Rate: IV No Longer [place] [facility] (regular) 0.1units/kg/hour Active 2012 Medical Titrate [...] 1,000 mL, Rate: IV No Longer [place] 0.9% IV 1,000 100 ml/hr, Active 2012 Medical mL + M.V.I.-[id number] Infuse over: Center 10 mL Daily + 10.1 hr, Route: folic acid IV 1 IV, kg, Total mg Daily + Volume: 1,011.2, thiamine IV 1 Start date: 10/23/12 8:41:00, Duration: 3 day, Stop date: 10/26/12 8:40:00 Insulin regular 100 mL, Rate: IVPB No Longer Isaac [place] 100 unit + Start Insulin Active 2012 [...] gm, 50 mL, IVP No Longer Isaac [place] Syringe Route: IVP, Drug Active 2012 Medical Form: INJ, Center Dosing Weight 113.636, kg, PRN, PRN Blood Glucose Results, Start date: 10/23/12 8:17:00, Duration: 30 day, Stop date: 11/22/12 9:16:00 normal saline 1,000 mL, Rate: IV No Longer Isaac [place] 0.9% IV 1,000 150 ml/hr, Active 2012 [...] mg, 0.5 mL, IV No Longer [facility] Route: IV, Drug Active 2012 Medical form: INJ, Q4H, Center Dosing Weight 113.636, kg, PRN Other -See Comment, Start date: 10/23/12 0:38:00, Duration: 30 day, Stop date: 11/22/12 0:37:00, hypertesnion acetaminophen 650 mg, 1 supp, [place] No Longer Kristy [facility] Route: [place], Drug Active 2012 Medical form: SUPP, Q6H, [...] mL, IVP No Longer [facility]unez [facility] mg/5 ml INJ Route: IVP, Drug [...] mg, Route: IM, IM No Longer Isaac [place] Drug form: Active 2012 Medical PDR/INJ, PRN, Center Dosing Weight 113.636, kg, PRN Blood Glucose Results, Start date: 10/23/12 0:26:00, Duration: 30 day, Stop date: 11/22/12 1:25:00 Dextrose 50% 25 gm, 50 mL, IVP No Longer Isaac [place] Syringe Route: IVP, Drug Active 2012 Medical Form: INJ, Center Dosing Weight 113.636, kg, PRN, PRN Blood Glucose Results, Start date: 10/23/12 0:26:00, Duration: 30 day, Stop date: 11/22/12 1:25:00 Zofran ODT 8 mg, 1 tab, PO No Longer Steward [place] Route: PO, Drug Active 2012 Medical form: TABDIS, Center Q8H, Dosing Weight 113.636, kg, PRN Nausea, Start date: 10/23/12 0:02:00, Stop date: 11/22/12 0:01:00 heparin 5,000 unit, SUB-Q No Longer Brian [place] Route: SUB-Q, Active 2012 Medical Q8H, Dosing Center Weight 113.636, kg, Start date: 10/23/12 0:00:00, Duration: 30 day, Stop date: 11/21/12 16:00:00 carvedilol 25 Daily, No Longer [place] mg oral tablet Substitution Active 2012 Medical Allowed [place] Diovan HCT 160 1 tab, PO, PO No Longer [place] mg-12.5 mg oral Daily, 30 tab, Active [...] mg, 10 mL, [place] No Longer [facility] Fei Route: [place], Drug Active 2012 Medical form: SUSP, Center Q12H, Dosing Weight 118.2, kg, Start date: 10/07/12 14:30:00, Duration: 7 day, Stop date: 10/14/12 9:00:00 [place] 325 mg-10 15 mL, Route: PO No Longer Sushila Fei mg / 15 mL oral PO, Drug Form: Active 2012 Medical solution SOLN, Dosing Center Weight 118.2, kg, Q4H, PRN For Pain, Start date: 10/07/12 14:22:00, Duration: 30 day, Stop date: 11/06/12 14:21:00 Diovan 160 mg, 1 tab, PO No Longer Sushila [facility] Route: PO, Drug Active 2012 Medical form: TAB, Center Daily, Dosing Weight 118.2, kg, Start date: 10/07/12 14:00:00, Duration: 30 day, Stop date: 11/06/12 9:00:00 Coreg 25 mg, 1 tab, PO No Longer Sushila [facility] Route: PO, Drug Active 2012 Medical form: TAB, Q12H, Center Dosing Weight 118.2, kg, Start date: 10/07/12 14:00:00, Duration: 30 day, Stop date: 11/06/12 9:00:00 potassium 20 mEq, 100 mL, IVPB No Longer Bagshahi [facility] chloride Route: IVPB, Active 2012 Medical [...] Lip Route: TOP, TOP No Longer Dru Fei [place] Dosing Weight Active 2012 Medical 118.2, kg, PRN, Center PRN, Start date: 10/06/12 22:46:00, Duration: 30 day, Stop date: 11/05/12 22:45:00, prn Dilaudid 0.2 mg, 0.1 mL, IV No Longer Sushila [facility] Route: IV, Drug Active 2012 Medical [...] unit, 0.2 mL, SUB-Q No Longer Sushila [facility] Route: SUB-Q, Active 2012 Medical Drug form: INJ, Center Q12H, Start date: 10/05/12 21:00:00, Duration: 30 day, Stop date: 11/04/12 9:00:00 carvedilol 25 mg, 1 tab, PO No Longer Sushila [facility] Route: PO, Drug Active 2012 Medical form: TAB, Q12H, Center Dosing Weight 118.2, kg, Start date: 10/04/12 21:00:00, Duration: 30 day, Stop date: 11/03/12 9:00:00 [place] 325 mg-10 30 mL, Route: PO No Longer Allencami Fei mg / 15 mL oral PO, Drug Form: Active 2012 Medical solution SOLN, Dosing Center Weight 118.2, kg, Q4H, PRN Pain Score 6-10, Start date: 10/04/12 17:20:00, Duration: 30 day, Stop date: 11/03/12 17:19:00 Diovan 160 mg, 1 tab, PO No Longer Sushila [facility] Route: PO, Drug Active 2012 Medical form: TAB, Center Daily, Dosing Weight 118.2, kg, Start date: 10/04/12 14:00:00, Duration: 30 day, Stop date: 11/03/12 9:00:00 Trandate 10 mg, 2 mL, IVP No Longer Low [facility] Route: IVP, Drug Active 2012 Medical form: INJ, Q4H, Center PRN Elevated BP, Start date: 10/04/12 9:05:00, Duration: 30 day, Stop date: 11/03/12 9:04:00 hydrALAZINE 20 mg, 1 mL, IVP No Longer Low [facility] Route: IVP, Drug Active 2012 Medical [...] unit, 0.2 mL, SUB-Q No Longer Low [facility] Route: SUB-Q, Active 2012 Medical Drug form: INJ, Center Q12H, Dosing Weight 118.2, kg, Priority: NOW, Start date: 10/04/12 7:02:00, Duration: 30 day, Stop date: 11/02/12 21:00:00 hydrALAZINE 10 mg, 0.5 mL, IVP No Longer Low [facility] Route: IVP, Drug Active 2012 Medical form: INJ, ONCE, Center Dosing Weight 118.2, kg, Start date: 10/04/12 6:53:00, Stop date: 10/04/12 6:53:00 labetalol 10 mg, 2 mL, IVP No Longer Low [facility] Route: IVP, Drug Active 2012 Medical form: INJ, Center Q15Min, Dosing Weight 118.2, kg, PRN Hypertension, Start date: 10/04/12 5:11:00, Duration: 3 doses or times, Stop date: Limited # of times Insulin regular 12 unit, 0.12 SUB-Q No Longer [place] mL, Route: Active 2012 Medical SUB-Q, Drug Center form: SOLN, Sliding Scale, Dosing Weight 118.2, kg, PRN Blood Glucose Results, Start date: 10/04/12 0:40:00, Duration: 30 day, Stop date: 11/03/12 0:39:00 Dextrose 50% 25 gm, 50 mL, IVP No Longer [facility] Syringe Route: IVP, Drug Active 2012 Medical Form: INJ, Center Dosing Weight 118.2, kg, PRN, PRN Blood Glucose Results, Start date: 10/04/12 0:40:00, Duration: 30 day, Stop date: 11/03/12 0:39:00 glucagon 1 mg, Route: IM, IM No Longer [place] [facility] Drug form: Active 2012 Medical PDR/INJ, PRN, Center Dosing Weight 118.2, kg, PRN Blood Glucose Results, Start date: 10/04/12 0:40:00, Duration: 30 day, Stop date: 11/03/12 0:39:00 Ofirmev 1,000 mg, 100 IV No Longer [facility] mL, Route: IV, Active 2012 Medical Drug form: INJ, Center Q6H, Start date: 10/03/12 18:00:00, Duration: 4 doses or times, Stop date: 10/04/12 12:00:00 Mefoxin 2 gm, Route: IVPB No Longer [facility] IVPB, Drug form: Active 2012 Medical INJ, ABXQ8H, [place] Start date: 10/03/12 16:00:00, Duration: 2 doses or times, Stop date: 10/04/12 0:00:00 Lopressor 5 mg, 5 mL, IV No Longer Low [facility] Route: IV, Drug Active 2012 Medical form: INJ, Q6H, Center Start date: 10/03/12 16:00:00, Duration: 30 day, Stop date: 11/02/12 10:00:00 Humulin R 100 10 unit, 0.1 mL, SUB-Q No Longer [facility] units/mL Route: SUB-Q, Active 2012 Medical injectable Drug form: SOL, [place] solution TID-Before Meals, PRN Blood Glucose Results, Start date: 10/03/12 14:30:00, Duration: 30 day, Stop date: 11/02/12 14:29:00 Dextrose 50% in 50 mL, Route: IV No Longer [facility] 10/03[facility] [place] IV IV, Start date: Active 2012 Medical 10/03/12 Center 14:29:00, Duration: 30 day, Stop date: 11/02/12 14:28:00, PRN Blood Glucose Results Dextrose 50% in 25 mL, Route: IVP No Longer [facility] 01/28[facility] IV IVP, Start date: Active 2012 Medical 10/03/12 Center 14:28:00, Duration: 30 day, Stop date: 11/02/12 14:27:00, PRN Blood Glucose Results Zofran 4 mg, 2 mL, IVP No Longer Low [facility] Route: IVP, Drug Active 2012 Medical form: INJ, Q8H, Center PRN Nausea, Start date: 10/03/12 14:22:00, Duration: 30 day, Stop date: 11/02/12 14:21:00 naloxone 0.2 mg, 0.5 mL, IV No Longer Bagshahi [facility] Route: IV, Drug Active 2012 Medical form: INJ, PRN, Center PRN Narcotic Reversal, Start date: 10/03/12 14:21:00, Duration: 30 day, Stop date: 11/02/12 14:20:00 hydromorphone IV, Start date: IV No Longer Low [facility] 15 mg 10/03/12 Active 2012 Medical 14:19:00, Center Duration: 30, 30 ml, 118.2 Phenergan 12.5 mg, 0.5 mL, IVPB No Longer Bagshi [facility] Route: IVPB, Active 2012 Medical Drug form: INJ, Center Q4H, PRN Nausea, Start date: 10/03/12 14:08:00, Duration: 30 day, Stop date: 11/02/12 14:07:00 Phenergan 12.5 mg, 0.5 mL, IM No Longer [facility] Route: IM, Drug Active 2012 Medical form: INJ, Q4H, Center PRN Nausea, Start date: 10/03/12 14:07:00, Duration: 30 day, Stop date: 11/02/12 14:06:00 Benadryl 25 mg, 0.5 mL, IM No Longer Sushila [facility] Route: IM, Drug Active 2012 Medical form: INJ, Center Bedtime, PRN Insomnia, Start date: 10/03/12 14:04:00, Duration: 30 day, Stop date: 11/02/12 14:03:00 Lactated 1,000 mL, Rate: IV No Longer [place] 125 ml/hr, Active 2012 Medical Injection IV Infuse over: 8 Center 1,000 mL hr, Route: IV, kg, Total Volume: 1,000, Start date: 10/03/12 14:00:00, Duration: 30 day, Stop date: 11/02/12 13:59:00 ondansetron 4 mg, 2 mL, IVP No Longer Jose [facility] Route: IVP, Drug Active 2012 Medical [...] mg, 0.25 mL, IVP No Longer Jose [facility] Route: IVP, Drug Active 2012 Medical [...] 2 gm, Route: IVPB No Longer Sushila [place] IVPB, Drug form: Active 2012 Medical INJ, PRE OP, Center Priority: STAT, Start date: 10/03/12 5:50:00, Duration: 1 day, Stop date: 10/04/12 5:49:00 Mobic 15 mg 10 mg, PO, PO Active [place] oral tablet Daily, 30 tab, 2012 Medical Substitution Center Allowed, TAB Zetia Daily, Active [facility] Substitution 2011 Medical Allowed Center Klor-Con 10 10 mEq, 1 tab, PO Active [place] oral tablet, PO, Daily, 180 2011 Medical extended tab, Center release Substitution Allowed, ERTAB ferrous 324 mg, 1 tab, PO Active [facility] gluconate 324 PO, Daily, 100 2011 Medical mg oral tablet tab, Center Substitution Allowed, TAB Lasix 40 mg 40 mg, 1 tab, PO Active [place] oral tablet PO, Daily, 30 2011 Medical tab, Center Substitution Allowed, TAB Cymbalta 60 mg 60 mg, 1 cap, PO Active [facility] oral delayed PO, BID, 30 cap, [...] mg 150 mg, 1 cap, PO Active [facility] oral capsule PO, BID, 90 cap, 2011 Medical Substitution Center Allowed, CAP Klonopin 0.5 mg 0.5 mg, 1 tab, PO Active [facility] oral tablet PO, TID, 2011 Medical Substitution Center Allowed, TAB Diovan 160 mg 160 mg, 1 tab, PO Active [place] oral tablet PO, Daily, 30 2011 Medical tab, Center Substitution Allowed, TAB carvedilol 25 25 mg, 1 tab, PO Active [place] mg oral tablet PO, BID, 60 tab, 2011 [facility] Substitution Center Allowed, TAB omeprazole 20 20 [...] oral tablet PO, BID, 30 tab, 2011 [facility] Substitution Center Allowed NovoLog Substitution Active [facility] Allowed 2011 [facility] Levemir FlexPen Substitution Active [facility] Allowed 2011 [facility] Allergies, Adverse Reactions, Alerts No Known Medication Allergies Immunizations Immunization Date Given Site Status Last Updated Comments Source influenza virus 07/14/2013 completed [facility] vaccine, Medical inactivated Center pneumococcal 07/14/2013 completed [facility] 23-valent vaccine [facility] Results Order Name Results Value Reference Date Interpretation Comments Source Range CHEMISTRY U Preg Negative Negative 08/13 Normal [facility] (08/13/2013 13:30:00) [facility] Center URINALYSIS UA RBC 0-2 /HPF 0 - 2 08/13 Normal [facility] URINALYSIS UA WBC 3-5 /HPF None Seen 08/13 Normal [facility] URINALYSIS UA Sq Epi Few /LPF Few 08/13 Normal Medical Center URINALYSIS Micro? Performed 08/13 Normal [facility] (08/13/2013 13:30:00) [facility] URINALYSIS UA Hyal Cast 0-2 0 - 2 08/13 Normal [facility] (08/13/2013 13:30:00) Medical Center URINALYSIS UA Glucose 250 mg/dL Negative 08/13 [facility] URINALYSIS UA Blood Negative Negative 08/13 Normal [facility] (08/13/2013 13:30:00) [facility] URINALYSIS UA Ketones >=80 mg/dL Negative 08/13 [facility] Center URINALYSIS UA 0.2 0.1 - 1.0 08/13 Normal [facility] Urobilinogen [facility] URINALYSIS UA Nitrite Negative Negative 08/13 Normal [facility] (08/13/2013 13:30:00) [facility] URINALYSIS UA Bili Small 1 Negative 08/13 ABN <sup>1</sup>R [facility] *ABN* [facility] (08/13/2013 13:30:00) Comment: Center Interpret positive bilirubin results with caution. Confirmatory testing
n ot possible due to the unavailabilit y of reagent. Correlation with
seru m chemistry results recommended. URINALYSIS UA Leuk Est Negative Negative 08/13 [facility] (08/13/2013 13:30:00) [facility] URINALYSIS UA Protein Negative Negative 08/13 [facility] (08/13/2013 13:30:00) [facility] URINALYSIS UA pH 6.0 5.0 - 8.0 08/13 Normal [facility] URINALYSIS UA Spec Grav 1.020 <=1.030 08/13 Normal [facility] URINALYSIS UA Color Yellow Yellow 08/13 [facility] *NA* [facility] (08/13/2013 13:30:00) [place] URINALYSIS UA Turbidity Clear Clear 08/13 Normal [facility] (08/13/2013 13:30:00) [facility] CHEMISTRY BE Mark 1 -2-2 - 2 08/13 Normal [facility] CHEMISTRY pO2 Mark 29 20 - 49 08/13 Normal [facility] CHEMISTRY O2 Sat Mark 55.9 40.0 - 08/13 [facility] 70.0 [facility] CHEMISTRY Temp Mark 37.0 08/13 [facility] CHEMISTRY HCO3 Mark 26 22 - 26 08/13 Normal [facility] CHEMISTRY pCO2 Mark 41 38 - 52 08/13 Normal [facility] CHEMISTRY pH Mark 7.41 7.28 - 08/13 [facility] 7.42 [facility] CHEMISTRY eGFR 60 08/13 <sup>2</sup>R [facility] Comment: The Center eGFR is calculated [...] CO2 25 24 - 32 08/13 Normal [facility] CHEMISTRY Chloride Lvl 98 95 - 109 08/13 Normal [facility] CHEMISTRY BUN 9 7 - 22 08/13 [facility] CHEMISTRY Calcium Lvl 9.1 8.5 - 10.5 08/13 Normal [facility] CHEMISTRY Glucose Lvl 301 70 - 99 08/13 [place] <sup>3</sup>I nterpretive Medical Data: [facility] Center reference range values reflect the clinical guidelines
of the [place] [employer]. CHEMISTRY Potassium Lvl 3.8 3.5 - 5.1 08/13 Normal [facility] CHEMISTRY Sodium Lvl 134 135 - 145 08/13 LOW [facility] CHEMISTRY Creatinine 1.1 0.5 - 1.4 08/13 Normal [facility] Lvl [facility] CHEMISTRY Bili Total 0.6 0.2 - 1.3 08/13 Normal [facility] CHEMISTRY ASPARTATE 17 0 - 37 08/13 Normal [facility] TRANSAMINASE [facility] CHEMISTRY ALANINE 22 0 - 65 08/13 [facility] AMINO [facility] CHEMISTRY Albumin Lvl 3.5 3.5 - 5.0 08/13 Normal [facility] CHEMISTRY Alk Phos 130 39 - 136 08/13 Normal [facility] CHEMISTRY Total Protein 7.8 6.4 - 8.4 08/13 Normal [facility] CHEMISTRY B/C Ratio 8 6 - 25 08/13 Normal [facility] CHEMISTRY AGAP 14.8 10.0 - 12 [facility] 20.0 /2012 [facility] CHEMISTRY Globulin 4.3 2.0 - 4.0 12/ HI [facility] CHEMISTRY A/G Ratio 0.8 0.7 - 1.6 12/ Normal [facility] HEMATOLOGY Monocytes # 0.8 0.0 - 0.8 12/ Normal [facility] HEMATOLOGY Eosinophils # 0.0 0.0 - 0.5 12/ Normal [facility] HEMATOLOGY Basophils # 0.0 0.0 - 0.2 12/ Normal [facility] HEMATOLOGY Basophils 0.1 0.0 - 1.0 12/ Normal [facility] HEMATOLOGY Lymphocytes # 1.4 1.0 - 5.5 12 Normal [facility] HEMATOLOGY Segs-Bands # 10.5 1.5 - 8.1 12 HI [facility] HEMATOLOGY Monocytes 6.3 2.0 - 12.0 12/ Normal [facility] HEMATOLOGY Eosinophils 0.2 0.0 - 4.0 12/ Normal [facility] HEMATOLOGY Lymphocytes 11.3 20.0 - 12/08 LOW [place] 40.0 /2012 [facility] HEMATOLOGY Segs 82.1 45.0 - 12/08 [facility] [place] 75.0 /2012 [facility] HEMATOLOGY WBC X 10x3 12.7 3.7 - 10.4 12 HI [facility] HEMATOLOGY Hct 37.0 36.0 - 12/08 Normal [place] 48.0 /2012 [facility] HEMATOLOGY RBC X 10x6 4.36 4.20 - 12/08 Normal [place] 5.40 /2012 [facility] HEMATOLOGY Hgb 12.6 12.0 - 12/08 Normal [place] 16.0 /2012 [facility] HEMATOLOGY MCV 84.8 81.0 - 12/08 Normal [place] 99.0 /2012 Medical [place] HEMATOLOGY MCH 28.8 27.0 - 12/08 Normal [place] 31.0 /2012 [facility] HEMATOLOGY MCHC 34.0 32.0 - 12/08 Normal [place] 36.0 /2012 [facility] HEMATOLOGY Platelet 238 133 - 450 12 Normal [facility] HEMATOLOGY MPV 9.5 7.4 - 10.4 12/ Normal [facility] HEMATOLOGY RDW 13.1 11.5 - 12/08 Normal [facility] [place] 14.5 /2012 Medical Center BEDSIDE Gluc POC Notify 07/26 [facility] GLUCOSE Comment 1 RN/MD /2012 Medical TESTING Center BEDSIDE Glucose POC 274 70 - 99 07/26 [place] <sup>1</sup>I [facility] GLUCOSE nterpretive Medical TESTING Data: [place] Reportable Limit: 200 mg/dL. BEDSIDE Glucose POC 146 70 - 99 07/15 [place] <sup>2</sup>I [facility] GLUCOSE nterpretive Medical TESTING Data: [place] Reportable Limit: 200 mg/dL. BEDSIDE Gluc POC Notify 07/15 [facility] GLUCOSE Comment 1 RN/MD /2012 Medical TESTING Center BEDSIDE Glucose POC 140 70 - 99 07/14 [place] <sup>3</sup>I [facility] GLUCOSE nterpretive Medical TESTING Data: [place] Reportable Limit: 200 mg/dL. BEDSIDE Gluc POC Notify 07/14 [facility] GLUCOSE Comment 1 RN/MD /2012 Medical TESTING Center BEDSIDE Gluc POC Notify 07/14 [facility] GLUCOSE Comment 1 RN/MD /2012 Medical TESTING Center BEDSIDE Glucose POC 44 70 - 99 07/14 LOW <sup>4</sup>I [facility] nterpretive Medical TESTING Data: [place] Reportable Limit: 200 mg/dL. IMMUNOLOGY [place]-HIV Negative Negative 07/14 [facility] 09/07 Ab *NA* Medical (07/14/2013 00:27:00) Center IMMUNOLOGY [place]-Hep C Negative Negative 07/14 [facility] Ab *NA* Medical (07/14/2013 00:27:00) Center [...] Lvl 135 135 - 145 07/13 Normal [facility] CHEMISTRY Chloride Lvl 95 95 - 109 07/13 Normal [facility] CHEMISTRY AGAP 16.5 10.0 - 07/13 Normal [facility] 20.0 [facility] CHEMISTRY Glucose Lvl 322 70 - 99 07/13 [place] <sup>8</sup>I nterpretive Medical Data: [facility] Center reference range values reflect the clinical guidelines
of the [place] [employer]. CHEMISTRY Creatinine 0.6 0.5 - 1.4 07/13 Normal [facility] CHEMISTRY BUN 6 7 - 22 07/13 LOW [facility] CHEMISTRY Calcium Lvl 8.6 8.5 - 10.5 07/13 Normal [facility] CHEMISTRY CO2 27 24 - 32 07/13 Normal [facility] CHEMISTRY Potassium Lvl 3.5 3.5 - 5.1 07/13 Normal [facility] INFECTIOUS C difficile Negative 1 Negative 07/13 Normal <sup>1</sup>I [facility] DISEASES DNA (07/13/2013 00:00:59) nterpretive Medical Data: [place] [employer] Clostridium difficile assay utilizes loop-mediated isothermal DNA amplification (LAMP) technology to detect a 204 bp region of the tcdA gene within the PaLoc gene segment present in all known toxigenic C. difficile strains.

The assay utilizes FDA cleared IVD reagents. Performance characteristi cs have been verified by the [facility] within the [facility]. The [facility] Laboratory is authorized under the Clinical Laboratory Improvement Amendment of 1988 (CLIA-88) to perform high complexity testing. CHEMISTRY Lactic Acid 1.9 0.5 - 2.2 07/12 Normal [facility] CHEMISTRY eGFR 88 07/12 <sup>6</sup>R esult Medical [...] CHEMISTRY Troponin-I <0.02 0.00 - 07/12 Normal [facility] 0.40 /2012 [facility] HEMATOLOGY Basophils # 0.0 0.0 - 0.2 07/12 Normal [facility] HEMATOLOGY Eosinophils # 0.3 0.0 - 0.5 07/12 Normal [facility] HEMATOLOGY Monocytes # 1.0 0.0 - 0.8 07/12 HI [facility] HEMATOLOGY Lymphocytes # 3.0 1.0 - 5.5 07/12 Normal [facility] HEMATOLOGY Segs-Bands # 6.4 1.5 - 8.1 07/12 Normal [facility] HEMATOLOGY Basophils 0.4 0.0 - 1.0 07/12 Normal [facility] HEMATOLOGY Eosinophils 2.8 0.0 - 4.0 07/12 Normal [facility] HEMATOLOGY Plt Morph Normal 07/12 Normal [facility] (07/12/2013 16:29:10) [facility] HEMATOLOGY RBC Morph Normal 07/12 Normal [facility] (07/12/2013 16:29:10) [facility] HEMATOLOGY Monocytes 9.4 2.0 - 12.0 07/12 Normal [facility] HEMATOLOGY Lymphocytes 27.9 20.0 - 07/12 Normal [place] 40.0 [facility] HEMATOLOGY Segs 59.5 45.0 - 07/12 Normal [place] 75.0 /2012 [facility] HEMATOLOGY MCV 85.3 81.0 - 07/12 Normal [place] 99.0 [facility] HEMATOLOGY Hct 41.2 36.0 - 07/12 Normal [facility] 48.0 /2012 Medical Center HEMATOLOGY Hgb 13.6 12.0 - 11 Normal [facility] 16.0 /2012 Medical Center HEMATOLOGY RBC X 10x6 4.84 4.20 - 11 Normal [facility] 5.40 /2012 Medical Center HEMATOLOGY MPV 9.4 7.4 - 10.4 11 Normal [facility] HEMATOLOGY Platelet 225 133 - 450 11 Normal [facility] HEMATOLOGY MCH 28.1 27.0 - 11 Normal [facility] 31.0 /2012 Medical Center HEMATOLOGY MCHC 33.0 32.0 - 11 Normal [facility] 36.0 /2012 Medical Center HEMATOLOGY RDW 12.7 11.5 - 11 Normal [facility] 14.5 /2012 Medical Center HEMATOLOGY WBC X 10x3 10.7 3.7 - 10.4 07/12 [facility] CHEMISTRY AGAP 12.4 10.0 - 07/12 Normal [facility] 20.0 Medical Center CHEMISTRY Calcium Lvl 8.8 8.5 - 10.5 07/12 Normal [facility] CHEMISTRY Chloride Lvl 102 95 - 109 07/12 Normal [facility] CHEMISTRY Potassium Lvl 3.4 3.5 - 5.1 07/12 LOW [facility] CHEMISTRY CO2 30 24 - 32 07/12 Normal [facility] CHEMISTRY Sodium Lvl 141 135 - 145 07/12 Normal [facility] CHEMISTRY Creatinine 0.8 0.5 - 1.4 07/12 Normal [facility] CHEMISTRY BUN 6 7 - 22 07/12 LOW [facility] CHEMISTRY Glucose Lvl 163 70 - 99 07/12 HI <sup>9</sup>I nterpretive Medical Data: Adult Center reference range values reflect the clinical guidelines
of the [place] [employer]. IMMUNOLOGY CDC-HIV 1/2 Negative Negative 07/12 [facility] Ab *NA* /2012 Medical (07/12/2013 16:02:06) Center CHEMISTRY Calcium Lvl 8.4 8.5 - 10.5 07/12 LOW Medical Center CHEMISTRY AGAP 10.4 10.0 - 07/12 Normal [facility] 20.0 Medical Center CHEMISTRY eGFR 76 07/12 <sup>7</sup>R [facility] esult Medical Comment: The Center eGFR [...] Lvl 140 135 - 145 07/12 Normal [facility] CHEMISTRY Chloride Lvl 103 95 - 109 07/12 Normal [facility] CHEMISTRY Potassium Lvl 3.4 3.5 - 5.1 07/12 LOW [facility] CHEMISTRY BUN 9 7 - 22 07/12 Normal [facility] CHEMISTRY Creatinine 0.9 0.5 - 1.4 07/12 Normal [facility] CHEMISTRY Glucose Lvl 296 70 - 99 07/12 HI <sup>10</sup> Interpretive Medical Data: Adult Center reference range values reflect the clinical guidelines
of the [place] [employer]. CHEMISTRY CO2 30 24 - 32 07/12 Normal [facility] CHEMISTRY Troponin-I <0.02 0.00 - 11 Normal [facility] 0.40 [facility] CHEMISTRY Lipase Lvl 76 73 - 393 07/12 Normal [facility] CHEMISTRY B/C Ratio 11 6 - 25 07/12 Normal [facility] CHEMISTRY ASPARTATE 25 0 - 37 07/12 Normal [facility] TRANSAMINASE [facility] CHEMISTRY Bili Total 0.4 0.2 - 1.3 07/12 Normal [facility] CHEMISTRY Alk Phos 119 39 - 136 07/12 Normal [facility] CHEMISTRY Albumin Lvl 3.9 3.5 - 5.0 07/12 Normal [facility] CHEMISTRY ALANINE 29 0 - 65 07/12 Normal [facility] AMINOTRANSFER [facility] CHEMISTRY Total Protein 8.1 6.4 - 8.4 07/12 Normal [facility] CHEMISTRY Globulin 4.2 2.0 - 4.0 07/12 HI [facility] CHEMISTRY A/G Ratio 0.9 0.7 - 1.6 07/12 Normal [facility] HEMATOLOGY Monocytes # 0.6 0.0 - 0.8 07/12 Normal [facility] HEMATOLOGY Segs-Bands # 9.5 1.5 - 8.1 07/12 HI [facility] HEMATOLOGY Eosinophils # 0.2 0.0 - 0.5 07/12 Normal [facility] HEMATOLOGY Lymphocytes # 2.1 1.0 - 5.5 07/12 Normal [facility] HEMATOLOGY Basophils 0.2 0.0 - 1.0 07/12 Normal [facility] HEMATOLOGY Neut Vac Slight None Seen 07/12 [facility] [place] *ABN* /2012 [facility] (07/12/2013 03:30:00) [place] HEMATOLOGY Hypochrom Slight None Seen 07/12 Normal [facility] (07/12/2013 03:30:00) [facility] HEMATOLOGY Basophils # 0.0 0.0 - 0.2 07/12 Normal [facility] HEMATOLOGY RBC Morph Normal 07/12 Normal [facility] (07/12/2013 03:30:00) [facility] HEMATOLOGY Eosinophils 1.6 0.0 - 4.0 07/12 Normal [facility] HEMATOLOGY Monocytes 4.6 2.0 - 12.0 07/12 Normal [facility] HEMATOLOGY Segs 76.6 45.0 - 07/12 HI [place] 75.0 [facility] HEMATOLOGY Lymphocytes 17.0 20.0 - 07/12 LOW [place] 40.0 [facility] HEMATOLOGY Plt Morph Normal 07/12 Normal [facility] (07/12/2013 03:30:00) [facility] HEMATOLOGY MCHC 32.4 32.0 - 07/12 Normal [place] 36.0 [facility] HEMATOLOGY MCH 27.4 27.0 - 07/12 Normal [place] 31.0 [facility] HEMATOLOGY RDW 12.7 11.5 - 07/12 Normal [facility] [place] 14.5 /2012 [facility] HEMATOLOGY Platelet 235 133 - 450 07/12 Normal [place] [facility] HEMATOLOGY MPV 9.4 7.4 - 10.4 07/12 Normal [facility] HEMATOLOGY Hgb 12.9 12.0 - 07/12 Normal [facility] 16.0 /2012 [facility] HEMATOLOGY MCV 84.3 81.0 - 07/12 Normal [facility] 99.0 /2012 [facility] HEMATOLOGY Hct 39.6 36.0 - 07/12 Normal [facility] 48.0 /2012 [facility] HEMATOLOGY WBC X 10x3 12.4 3.7 - 10.4 07/12 HI [facility] HEMATOLOGY RBC X 10x6 4.70 4.20 - 07/12 Normal [facility] 5.40 /2012 [facility] CHEMISTRY U Preg Negative Negative 07/12 Normal [facility] (07/12/2013 03:00:00) [facility] URINALYSIS UA Leuk Est Negative Negative 07/12 Normal [facility] (07/12/2013 03:00:00) [facility] URINALYSIS UA 0.2 0.1 - 1.0 07/12 Normal [facility] Urobilinogen [facility] URINALYSIS UA Nitrite Negative Negative 07/12 Normal [facility] (07/12/2013 03:00:00) Medical Center URINALYSIS UA Bili Negative Negative 07/12 [facility] *NA* [facility] (07/12/2013 03:00:00) Center URINALYSIS UA pH 6.0 5.0 - 8.0 07/12 Normal [facility] URINALYSIS UA Protein Negative Negative 07/12 Normal [facility] mg/dL Medical Center URINALYSIS UA Glucose >=1000 Negative 07/12 ABN [facility] mg/dL Medical Center URINALYSIS UA Ketones 15 mg/dL Negative 07/12 ABN [facility] URINALYSIS UA Spec Grav 1.020 <=1.030 07/12 Normal [facility] URINALYSIS UA Blood Negative Negative 07/12 Normal [facility] (07/12/2013 03:00:00) Medical Center URINALYSIS UA Color Yellow Yellow 07/12 [facility] *NA* [facility] (07/12/2013 03:00:00) Center URINALYSIS UA Turbidity Clear Clear 07/12 Normal [facility] (07/12/2013 03:00:00) Medical Center URINALYSIS UA RBC 0-2 /HPF 0 - 2 07/12 Normal [facility] URINALYSIS UA WBC 3-5 /HPF None Seen 07/12 Normal [facility] URINALYSIS UA Sq Epi Many /LPF Few 07/12 ABN [facility] URINALYSIS UA Bacteria Few /HPF None Seen 07/12 Normal [facility] URINALYSIS UA [place] Yeast Moderate None Seen 07/12 ABN / Medical Center URINALYSIS Micro? Performed 07/12 Normal [facility] (07/12/2013 03:00:00) Medical Center BEDSIDE Gluc POC 226 70 - 99 04/03 HI <sup>1</sup>I [facility] GLUCOSE [facility] nterpretive Medical TESTING Data: [place] Reportable Limit: 200 mg/dL. BEDSIDE Comment2 Sliding 04/03 NA [facility] GLUCOSE Scale Medical TESTING Center BEDSIDE Comment1 Notify 04/03 NA [facility] GLUCOSE RN/ Medical TESTING Center BEDSIDE Comment1 Notify 04/03 NA [facility] GLUCOSE RN/MD /2012 Medical TESTING Center BEDSIDE Gluc POC 198 70 - 99 04/03 HI <sup>2</sup>I [facility] GLUCOSE [facility] nterpretive Medical TESTING Data: Center Upper Reportable Limit: 200 mg/dL. BEDSIDE Comment2 Sliding 04/03 NA [facility] GLUCOSE Scale Medical TESTING Center BEDSIDE Comment2 Sliding 04/03 NA [facility] GLUCOSE Scale Medical TESTING Center BEDSIDE Comment1 Notify 04/03 NA [facility] GLUCOSE RN/ /2012 Medical TESTING Center BEDSIDE Gluc POC 182 70 - 99 04/03 HI <sup>3</sup>I [facility] GLUCOSE [facility] nterpretive Medical TESTING Data: [place] Upper Reportable Limit: 200 mg/dL. CHEMISTRY Troponin-T <0.010 0.000 - 04/03 Normal [facility] 0.100 [facility] CHEMISTRY Troponin-I <0.02 0.00 - 04/03 Normal [facility] 0.40 [facility] CHEMISTRY Total CK 41 12 - 191 04/03 Normal [facility] CHEMISTRY Creatinine 0.6 0.5 - 1.4 04/03 Normal [facility] Lvl Medical Center CHEMISTRY Sodium Lvl 137 135 - 145 04/03 Normal [facility] CHEMISTRY CO2 25 24 - 32 04/03 Normal [facility] CHEMISTRY Calcium Lvl 8.2 8.5 - 10.5 04/03 LOW [facility] CHEMISTRY AGAP 17.9 10.0 - 04/03 Normal [facility] 20.0 [facility] CHEMISTRY Potassium Lvl 3.9 3.5 - 5.1 04/03 Normal [facility] CHEMISTRY Chloride Lvl 98 95 - 109 04/03 Normal [facility] CHEMISTRY Glucose Lvl 266 70 - 99 04/03 HI <sup>6</sup>I nterpretive Medical Data: Adult Center reference range values reflect the clinical guidelines
of the [place] [employer]. CHEMISTRY BUN 3 7 - 22 04/03 LOW [facility] CHEMISTRY eGFR 109 04/03 NA <sup>4</sup>R esult [...] 10.5 12.0 - 04/03 LOW [place] 16.0 [facility] HEMATOLOGY RBC 4.22 4.20 - 04/03 Normal [place] 5.40 [facility] HEMATOLOGY WBC 10.3 3.7 - 10.4 04/03 Normal [facility] HEMATOLOGY Hct 33.5 36.0 - 04/03 LOW [place] 48.0 [facility] HEMATOLOGY MPV 8.8 7.4 - 10.4 04/03 Normal [facility] HEMATOLOGY Platelet 276 133 - 450 04/03 Normal [facility] HEMATOLOGY RDW 18.7 11.5 - 04/03 HI [place] 14.5 /2012 Medical [place] HEMATOLOGY MCHC 31.2 32.0 - 07 LOW [place] 36.0 /2012 Medical [place] HEMATOLOGY MCH 24.8 27.0 - 04/03 LOW [place] 31.0 /2012 Medical [place] HEMATOLOGY MCV 79.5 81.0 - 04/03 LOW [place] 99.0 /2012 Medical [place] HEMATOLOGY Segs 58.6 45.0 - 04/03 Normal [place] 75.0 /2012 [facility] HEMATOLOGY Lymphocytes 29.9 20.0 - 04/03 Normal [place] 40.0 [facility] HEMATOLOGY Basophils 1.3 0.0 - 1.0 04/03 HI [facility] HEMATOLOGY Lymphocytes # 3.1 1.0 - 5.5 04/03 Normal [facility] HEMATOLOGY Segs-Bands # 6.0 1.5 - 8.1 04/03 Normal [facility] HEMATOLOGY Eosinophils 2.8 0.0 - 4.0 04/03 Normal [facility] HEMATOLOGY Eosinophils # 0.3 0.0 - 0.5 04/03 Normal [facility] HEMATOLOGY Monocytes # 0.8 0.0 - 0.8 04/03 Normal [facility] HEMATOLOGY Basophils # 0.1 0.0 - 0.2 04/03 Normal [facility] HEMATOLOGY Monocytes 7.4 2.0 - 12.0 04/03 Normal [facility] CHEMISTRY Troponin-I <0.02 0.00 - 04/03 Normal [place] 0.40 [facility] CHEMISTRY Total CK 51 12 - 191 04/03 Normal [facility] CHEMISTRY Troponin-T <0.010 0.000 - 04/03 Normal [place] 0.100 [facility] CHEMISTRY Bili Direct 0.1 0.0 - 0.3 04/03 Normal [facility] CHEMISTRY Bili Total 0.4 0.2 - 1.3 04/03 Normal [facility] CHEMISTRY Bili Indirect 0.3 0.0 - 1.0 04/03 Normal [facility] CHEMISTRY ALT 22 0 - 65 04/03 Normal [facility] CHEMISTRY AST 31 0 - 37 04/03 Normal [facility] CHEMISTRY Lipase Lvl 54 73 - 393 04/03 LOW [facility] CHEMISTRY Troponin-I <0.02 0.00 - 04/02 Normal [facility] 0.40 [facility] CHEMISTRY Total CK 24 12 - 191 04/02 Normal [facility] CHEMISTRY AGAP 17.5 10.0 - 04/02 Normal [facility] 20.0 [facility] CHEMISTRY eGFR 88 04/02 NA <sup>5</sup>R esult [...] Creatinine 0.8 0.5 - 1.4 04/02 Normal [facility] CHEMISTRY Potassium Lvl 3.5 3.5 - 5.1 04/02 Normal [facility] CHEMISTRY Chloride Lvl 97 95 - 109 04/02 Normal [facility] CHEMISTRY Glucose Lvl 163 70 - 99 04/02 HI <sup>7</sup>I nterpretive Medical Data: Adult Center reference range values reflect the clinical guidelines
of the [place] [employer]. CHEMISTRY BUN 2 7 - 22 04/02 LOW [facility] CHEMISTRY Sodium Lvl 136 135 - 145 04/02 Normal [facility] CHEMISTRY Calcium Lvl 8.6 8.5 - 10.5 04/02 Normal [facility] CHEMISTRY CO2 25 24 - 32 04/02 Normal [facility] HEMATOLOGY Platelet 378 133 - 450 04/02 Normal [facility] HEMATOLOGY MCHC 33.4 32.0 - 04/02 Normal [place] 36.0 /2012 [facility] HEMATOLOGY RDW 17.3 11.5 - 04/02 HI [place] 14.5 [facility] HEMATOLOGY MCV 76.0 81.0 - 04/02 LOW [place] 99.0 /2012 [facility] HEMATOLOGY MCH 25.4 27.0 - 04/02 LOW [place] 31.0 /2012 [facility] HEMATOLOGY Hct 34.2 36.0 - 04/02 LOW [place] 48.0 /2012 [facility] HEMATOLOGY RBC 4.50 4.20 - 04/02 Normal [place] 5.40 /2012 [facility] HEMATOLOGY Hgb 11.4 12.0 - 04/02 [facility] [place] 16.0 /2012 [facility] HEMATOLOGY WBC 9.0 3.7 - 10.4 04/02 Normal [facility] HEMATOLOGY MPV 8.4 7.4 - 10.4 04/02 Normal [facility] HEMATOLOGY Microcyte 2+ None Seen 04/02 ABN [place] *ABN* /2012 Medical (04/02/2013 17:09:00) [place] HEMATOLOGY Basophils # 0.1 0.0 - 0.2 04/02 Normal [facility] HEMATOLOGY Eosinophils # 0.1 0.0 - 0.5 04/02 Normal [facility] HEMATOLOGY Monocytes # 0.7 0.0 - 0.8 04/02 Normal [facility] HEMATOLOGY Lymphocytes # 1.4 1.0 - 5.5 04/02 Normal [facility] HEMATOLOGY Segs-Bands # 6.7 1.5 - 8.1 04/02 Normal [facility] HEMATOLOGY Basophils 1.3 0.0 - 1.0 04/02 HI [facility] HEMATOLOGY Lymphocytes 15.2 20.0 - 04/02 LOW [place] 40.0 /2012 [facility] HEMATOLOGY Segs 74.3 45.0 - 04/02 Normal [place] 75.0 /2012 [facility] HEMATOLOGY Eosinophils 1.6 0.0 - 4.0 04/02 Normal [facility] HEMATOLOGY Monocytes 7.6 2.0 - 12.0 04/02 Normal [facility] BEDSIDE Gluc POC 229 70 - 99 03/09 HI <sup>1</sup>I [facility] GLUCOSE [facility] /2012 nterpretive Medical TESTING Data: Center Upper Reportable Limit: 200 mg/dL. BEDSIDE Comment1 Notify 03/09 NA [facility] GLUCOSE RN/MD Medical TESTING Center CHEMISTRY eGFR 88 03/09 [...] BMI. CHEMISTRY BUN 7 7 - 22 07 Normal [facility] CHEMISTRY Creatinine 0.8 0.5 - 1.4 03/09 Normal [facility] /2012 [facility] CHEMISTRY Sodium Lvl 138 135 - 145 03/09 [facility] CHEMISTRY Potassium Lvl 4.7 3.5 - 5.1 03/09 [facility] CHEMISTRY Chloride Lvl 104 95 - 109 03/09 Normal [facility] CHEMISTRY CO2 23 24 - 32 03/09 [facility] CHEMISTRY Bili Total 0.2 0.2 - 1.3 03/09 [facility] CHEMISTRY AST 22 0 - 37 / [facility] CHEMISTRY Total Protein 4.8 6.4 - 8.4 03/09 [facility]2012 [facility] CHEMISTRY Calcium Lvl 7.4 8.5 - 10.5 03/09 [facility]2012 [facility] CHEMISTRY Albumin Lvl 1.9 3.5 - 5.0 / [facility] CHEMISTRY Glucose Lvl 192 70 - 99 07 HI <sup>7</sup>I nterpretive Medical Data: Adult Center reference range values reflect the clinical guidelines
of the [place] [employer]. CHEMISTRY Alk Phos 162 39 - 136 07/ HI [facility] CHEMISTRY ALT 18 0 - 65 07 Normal [facility] CHEMISTRY A/G Ratio 0.7 0.7 - 1.6 03/09 Normal [facility] CHEMISTRY Globulin 2.9 2.0 - 4.0 07/ Normal [facility] CHEMISTRY AGAP 15.7 10.0 - 07/ Normal [place] 20.0 /2012 [facility] CHEMISTRY B/C Ratio 9 6 - 25 07 Normal [facility] HEMATOLOGY Eosinophils 1.9 0.0 - 4.0 07/ Normal [facility] HEMATOLOGY Basophils 1.0 0.0 - 1.0 03/09 Normal [facility] HEMATOLOGY Anisocyte 1+ None Seen 03/09 [facility] *ABN* /2012 [facility] (03/09/2013 01:09:00) [place] HEMATOLOGY Lymphocytes # 2.0 1.0 - 5.5 07/ Normal [facility] HEMATOLOGY Monocytes # 0.6 0.0 - 0.8 07 Normal [facility] HEMATOLOGY Eosinophils # 0.1 0.0 - 0.5 07/ Normal [facility] HEMATOLOGY Basophils # 0.1 0.0 - 0.2 07/ Normal [facility] HEMATOLOGY Segs-Bands # 4.6 1.5 - 8.1 07 Normal [facility] HEMATOLOGY Segs 62.8 45.0 - 07 Normal [place] 75.0 /2012 [facility] HEMATOLOGY Lymphocytes 26.4 20.0 - 07/04 Normal [place] 40.0 /2012 [facility] HEMATOLOGY Monocytes 7.9 2.0 - 12.0 07/ Normal [facility] HEMATOLOGY RDW 20.7 11.5 - 07/04 HI [place] 14.5 /2012 [facility] HEMATOLOGY Platelet 304 133 - 450 07/ Normal [facility] HEMATOLOGY MPV 8.0 7.4 - 10.4 07 Normal [facility] HEMATOLOGY Hct 24.9 36.0 - 07/ [facility] [place] 48.0 /2013 Medical Center HEMATOLOGY MCV 79.3 81.0 - 07/ [facility] [place] 99.0 /2012 Medical Center HEMATOLOGY MCH 24.7 27.0 - 07/ [facility] [place] 31.0 /2012 Medical [place] HEMATOLOGY MCHC 31.2 32.0 - 07/ [facility] [place] 36.0 /2012 [facility] HEMATOLOGY RBC 3.14 4.20 - 07/ [facility] [place] 5.40 /2012 [facility] HEMATOLOGY Hgb 7.8 12.0 - 07/ [facility] [place] 16.0 /2012 [facility] HEMATOLOGY WBC 7.4 3.7 - 10.4 07/ Normal [facility] BEDSIDE Gluc POC 131 70 - 99 03/09 HI <sup>2</sup>I [facility] GLUCOSE tx nterpretive Medical TESTING Data: [place] Upper Reportable Limit: 200 mg/dL. BEDSIDE Comment1 Notify 03/09 NA [facility] GLUCOSE RN/MD [facility] TESTING Center BEDSIDE Comment1 Notify 03/09 [facility] GLUCOSE RN/MD /2012 [facility] TESTING Center BEDSIDE Gluc POC 155 70 - 99 03/09 HI <sup>3</sup>I [facility] GLUCOSE [facility] nterpretive Medical TESTING Data: Center Upper Reportable Limit: 200 mg/dL. CHEMISTRY Magnesium Lvl 1.5 1.8 - 2.4 03/08 [facility] CHEMISTRY A/G Ratio 0.7 0.7 - 1.6 03/08 Normal [facility] CHEMISTRY B/C Ratio 8 6 - 25 03/08 Normal [facility] CHEMISTRY Globulin 2.8 2.0 - 4.0 03/08 [facility] CHEMISTRY AGAP 15.8 10.0 - 07/03 [facility] [place] 20.0 [facility] CHEMISTRY Potassium Lvl 3.8 3.5 - 5.1 07/ [facility] CHEMISTRY Chloride Lvl 100 95 - 109 07/ Normal [facility] CHEMISTRY CO2 23 24 - 32 07/ [facility] CHEMISTRY Total Protein 4.8 6.4 - 8.4 07 [facility] CHEMISTRY AST 10 0 - 37 07/ Normal Medical Center CHEMISTRY Calcium Lvl 7.6 8.5 - 10.5 03/08 [facility] CHEMISTRY Bili Total 0.3 0.2 - 1.3 03/08 Normal [facility] CHEMISTRY eGFR 88 03/08 NA <sup>5</sup>R esult [...] 99 03/08 HI <sup>8</sup>I nterpretive Medical Data: Adult Center reference range values reflect the clinical guidelines
of the [place] [employer]. CHEMISTRY BUN 6 7 - 22 03/08 [facility] CHEMISTRY Creatinine 0.8 0.5 - 1.4 03/08 Normal [facility] CHEMISTRY Sodium Lvl 135 135 - 145 03/08 Normal [facility] CHEMISTRY Alk Phos 173 39 - 136 03/08 HI [facility] CHEMISTRY ALT 16 0 - 65 / Normal [facility]2012 [facility] CHEMISTRY Albumin Lvl 2.0 3.5 - 5.0 03/08 [facility]2012 [facility] CHEMISTRY Lipase Lvl 54 73 - 393 03/08 [facility] CHEMISTRY Amylase Lvl 30 25 - 115 / [facility] HEMATOLOGY Basophils # 0.1 0.0 - 0.2 03/08 [facility] HEMATOLOGY Anisocyte 1+ None Seen 07/03 ABN [facility] [place] *ABN* /2012 Medical (03/08/2013 03:01:00) Center HEMATOLOGY Microcyte 1+ None Seen 03/08 [facility] [place] *ABN* /2012 Medical (03/08/2013 03:01:00) Center HEMATOLOGY Eosinophils # 0.2 0.0 - 0.5 07 Normal [facility] HEMATOLOGY Monocytes # 0.8 0.0 - 0.8 03/08 Normal [facility] HEMATOLOGY Lymphocytes 34.2 20.0 - 07 Normal [place] 40.0 /2012 [facility] HEMATOLOGY Segs 53.3 45.0 - 07 Normal [place] 75.0 /2012 [facility] HEMATOLOGY Lymphocytes # 3.0 1.0 - 5.5 07 Normal [facility] HEMATOLOGY Segs-Bands # 4.7 1.5 - 8.1 07 Normal /2012 [facility] HEMATOLOGY Basophils 0.9 0.0 - 1.0 / Normal [facility] HEMATOLOGY Eosinophils 2.6 0.0 - 4.0 07 Normal [facility] HEMATOLOGY Monocytes 9.0 2.0 - 12.0 07/ Normal [facility] HEMATOLOGY Hgb 7.9 12.0 - 07 [facility] [place] 16.0 /2012 [facility] HEMATOLOGY RBC 3.12 4.20 - 07 [facility] [place] 5.40 /2012 [facility] HEMATOLOGY MPV 8.0 7.4 - 10.4 07 Normal [facility] HEMATOLOGY Platelet 294 133 - 450 07 Normal [facility] HEMATOLOGY MCH 25.3 27.0 - 07 [facility] [place] 31.0 /2012 [facility] HEMATOLOGY MCV 79.7 81.0 - 07/03 [facility] [place] 99.0 /2012 [facility] HEMATOLOGY Hct 24.9 36.0 - 07 [facility] [place] 48.0 /2012 [facility] HEMATOLOGY WBC 8.8 3.7 - 10.4 07 Normal [facility] HEMATOLOGY RDW 21.4 11.5 - 07/03 [facility] [place] 14.5 /2012 [facility] HEMATOLOGY MCHC 31.8 32.0 - 07/03 [facility] [place] 36.0 /2012 [facility] CHEMISTRY Troponin-I <0.02 0.00 - 07/02 Normal [place] 0.40 [facility] CHEMISTRY Total CK 26 12 - 191 07/ Normal [facility] CHEMISTRY A/G Ratio 0.6 0.7 - 1.6 07/ LOW [facility] CHEMISTRY Bili Total 0.6 0.2 - 1.3 07/ Normal [facility] CHEMISTRY Bili Direct 0.3 0.0 - 0.3 07/ Normal [facility] CHEMISTRY Alk Phos 190 39 - 136 07 HI [facility] CHEMISTRY Total Protein 5.2 6.4 - 8.4 07/ [facility] CHEMISTRY Globulin 3.2 2.0 - 4.0 07/ Normal [facility] CHEMISTRY Bili Indirect 0.3 0.0 - 1.0 07/ Normal [facility] CHEMISTRY AST 11 0 - 37 07/ Normal [facility] CHEMISTRY Albumin Lvl 2.0 3.5 - 5.0 07 [facility] CHEMISTRY ALT 19 0 - 65 07 Normal [facility] CHEMISTRY Amylase Lvl 26 25 - 115 07/ Normal [facility] CHEMISTRY Lipase Lvl 49 73 - 393 07/ LOW [facility] HEMATOLOGY MPV 8.3 7.4 - 10.4 07/ Normal [facility] HEMATOLOGY MCH 24.7 27.0 - 07/ [facility] [place] 31.0 /2012 Medical [place] HEMATOLOGY MCHC 32.6 32.0 - 07/ Normal [place] 36.0 /2012 Medical [place] HEMATOLOGY RDW 20.1 11.5 - 07/ [facility] [place] 14.5 /2012 Medical [place] HEMATOLOGY Platelet 362 133 - 450 07/ Normal [facility] HEMATOLOGY MCV 75.7 81.0 - 07/ [facility] [place] 99.0 /2012 Medical [place] HEMATOLOGY Hgb 8.8 12.0 - 07/ [facility] [place] 16.0 /2012 Medical [place] HEMATOLOGY Hct 26.9 36.0 - 07/ [facility] [place] 48.0 /2012 [facility] HEMATOLOGY RBC 3.56 4.20 - 07/ [facility] [place] 5.40 /2012 Medical [place] HEMATOLOGY WBC 11.1 3.7 - 10.4 07/ [facility] Medical [place] HEMATOLOGY Lymphocytes # 2.4 1.0 - 5.5 07/ [facility] /2013 [facility] HEMATOLOGY Hypochrom Slight None Seen 03/07 Normal [facility] (03/07/2013 07:43:59) [facility] HEMATOLOGY Microcyte 2+ None Seen 03/07 [facility] Medical (03/07/2013 07:43:59) [place] HEMATOLOGY Anisocyte 1+ None Seen 03/07 [facility] *ABN* Medical (03/07/2013 07:43:59) Center HEMATOLOGY Basophils # 0.1 0.0 - 0.2 03/07 Normal [facility] HEMATOLOGY Polychrom Slight None Seen 03/07 Normal [facility] (03/07/2013 07:43:59) [facility] HEMATOLOGY Basophils 0.8 0.0 - 1.0 03/07 Normal [facility] HEMATOLOGY Eosinophils 1.3 0.0 - 4.0 03/07 Normal [facility] HEMATOLOGY Segs-Bands # 7.6 1.5 - 8.1 03/07 [facility] HEMATOLOGY Monocytes 8.1 2.0 - 12.0 03/07 Normal [facility] HEMATOLOGY Monocytes # 0.9 0.0 - 0.8 03/07 HI [facility] HEMATOLOGY Eosinophils # 0.1 0.0 - 0.5 03/07 [facility] HEMATOLOGY Target Cell Slight None Seen 03/07 [facility] *ABN* Medical (03/07/2013 07:43:59) [place] HEMATOLOGY Plt Morph Normal 03/07 [facility] (03/07/2013 07:43:59) [facility] HEMATOLOGY Lymphocytes 22.0 20.0 - 03/07 [facility] 40.0 [facility] HEMATOLOGY Segs 67.8 45.0 - 07 Normal [facility] 75.0 [facility] CHEMISTRY Lactic Acid 1.7 0.5 - 2.2 03/07 Normal [facility] Lvl [facility] CHEMISTRY Total CK 21 12 - 191 03/07 Normal [facility] CHEMISTRY Troponin-I <0.02 0.00 - 07 Normal [facility] 0.40 /2012 [facility] CHEMISTRY eGFR 104 03/07 NA <sup>6</sup>R esult [...] CO2 27 24 - 32 03/07 Normal [facility] CHEMISTRY Potassium Lvl 3.6 3.5 - 5.1 03/07 [facility] CHEMISTRY Chloride Lvl 99 95 - 109 03/07 [facility] CHEMISTRY Sodium Lvl 134 135 - 145 07 [facility] CHEMISTRY BUN 5 7 - 22 07 [facility] CHEMISTRY Creatinine 0.7 0.5 - 1.4 03/07 Normal [facility] /2012 [facility] CHEMISTRY Glucose Lvl 233 70 - 99 03/07 [place] <sup>9</sup>I nterpretive Medical Data: Adult Center reference range values reflect the clinical guidelines
of the [place] [employer]. CHEMISTRY Calcium Lvl 7.7 8.5 - 10.5 03/07 [facility] CHEMISTRY AGAP 11.6 10.0 - 07 [facility] 20.0 /2012 [facility] CHEMISTRY Temp Art 37.0 03/07 NA [facility] CHEMISTRY pH Art 7.41 7.35 - 07 [facility] 7.45 /2012 [facility] CHEMISTRY pCO2 Art 34 35 - 45 07 [facility] CHEMISTRY O2 Sat Art 97.5 95.0 - 07/ [facility] 100.0 /2012 [facility] CHEMISTRY HCO3 Art 22 22 - [address] [facility] CHEMISTRY BE Art -2 -2-2 - 2 03/07 [facility] /2013 Medical Center CHEMISTRY pO2 Art 96 80 [...] pH Mark 7.46 7.28 - 03/07 HI [facility] 7.42 /2012 Medical Center CHEMISTRY Lactic Acid 2.6 0.5 - 2.2 03/07 HI [facility] Lvl /2012 Medical Center CHEMISTRY Phosphorus 3.1 2.5 - 4.5 03/07 Normal [facility] CHEMISTRY Magnesium Lvl 1.6 1.8 - 2.4 03/07 LOW [facility] CHEMISTRY Total CK 31 12 - 191 03/07 Normal [facility] CHEMISTRY Troponin-I <0.02 0.00 - 03/07 Normal [facility] 0.40 /2012 Medical Center CHEMISTRY U Preg Negative Negative 03/06 Normal [facility] (03/06/2013 18:25:00) Medical Center URINALYSIS UA Amorph Occasional /HPF None Seen 03/06 ABN [facility] [place] *ABN* /2012 Medical (03/06/2013 18:25:00) Center URINALYSIS UA Mucus Few /LPF None Seen 03/06 Normal [facility] (03/06/2013 18:25:00) Medical Center URINALYSIS Micro? Performed 03/06 Normal [facility] (03/06/2013 18:25:00) Medical Center URINALYSIS UA Sq Epi Moderate /LPF Few 03/06 ABN [facility] *ABN* /2012 Medical (03/06/2013 18:25:00) Center URINALYSIS UA WBC 0-2 /HPF None Seen 03/06 Normal [facility] (03/06/2013 18:25:00) Medical Center URINALYSIS UA RBC None Seen 0 - 2 03/06 Normal [facility] (03/06/2013 18:25:00) Medical Center URINALYSIS UA Bacteria Few /HPF None Seen 03/06 Normal [facility] (03/06/2013 18:25:00) Medical Center URINALYSIS UA Bili Negative Negative 03/06 NA [facility] *NA* Medical (03/06/2013 18:25:00) Center URINALYSIS UA 0.2 0.1 - 1.0 03/06 Normal [facility] Urobilinogen /2012 Medical Center URINALYSIS UA Nitrite Negative Negative 03/06 Normal [facility] (03/06/2013 18:25:00) Medical Center URINALYSIS UA Leuk Est Trace Negative 03/06 ABN [facility] *ABN* Medical (03/06/2013 18:25:00) Center URINALYSIS UA Blood Negative Negative 03/06 Normal [facility] (03/06/2013 18:25:00) Medical Center URINALYSIS UA Ketones 40 mg/dL [facility] 18:25:00) Center URINALYSIS UA Turbidity Clear Clear 03/06 Normal [facility] (03/06/2013 18:25:00) Medical Center URINALYSIS UA Color Yellow Yellow 03/06 NA [facility] *NA* Medical (03/06/2013 18:25:00) Center URINALYSIS UA Spec Grav 1.015 <=1.030 03/06 Normal [facility] URINALYSIS UA Protein Negative Negative 03/06 Normal [facility] (03/06/2013 18:25:00) Medical Center URINALYSIS UA Glucose 250 mg/dL [facility]:25:[facility] Center URINALYSIS UA pH 7.5 5.0 - 8.0 03/06 Normal [facility] BEDSIDE Comment1 Notify 12/07 NA [facility] GLUCOSE RN/MD /2012 Medical TESTING Center BEDSIDE Gluc POC 64 70 - 99 12/07 LOW <sup>3</sup>I [facility] GLUCOSE [facility] nterpretive Medical TESTING Data: Center Upper Reportable Limit: 200 mg/dL. BEDSIDE Gluc POC 50 70 - 99 12/07 LOW <sup>4</sup>I [facility] GLUCOSE [facility] nterpretive Medical TESTING Data: Center Upper Reportable Limit: 200 mg/dL. BEDSIDE Comment1 Notify 12/07 NA [facility] GLUCOSE RN/ /2012 Medical TESTING Center BEDSIDE Gluc POC 45 70 - 99 12/07 LOW <sup>5</sup>I [facility] GLUCOSE [facility] /2012 nterpretive Medical TESTING Data: Center Upper Reportable Limit: 200 mg/dL. BEDSIDE Comment1 Notify 12/07 NA [facility] GLUCOSE RN/ /2012 Medical TESTING Center CHEMISTRY eGFR 109 12/07 NA <sup>7</sup>R [facility] esult Medical Comment: The Center eGFR [...] Lvl 8.3 8.5 - 10.5 12/07 LOW [facility] CHEMISTRY AGAP 12.8 10.0 - 12/07 [facility] 20.0 [facility] CHEMISTRY BUN 2 7 - 22 12/07 LOW [facility] CHEMISTRY Glucose Lvl 95 70 - 99 12/07 Normal <sup>10</sup> Interpretive Medical Data: Adult Center reference range values reflect the clinical guidelines
of the [place] [employer]. CHEMISTRY Potassium Lvl 3.8 3.5 - 5.1 12/07 Normal [facility] CHEMISTRY Creatinine 0.6 0.5 - 1.4 12/07 Normal [facility] Lvl [facility] CHEMISTRY Sodium Lvl 140 135 - 145 12/07 Normal [facility] CHEMISTRY Chloride Lvl 105 95 - 109 12/07 Normal [facility] CHEMISTRY CO2 26 24 - 32 12/07 Normal [facility] BEDSIDE Comment2 Verify 12/06 NA [facility] GLUCOSE w/Lab /2012 [facility] TESTING Center BEDSIDE Comment2 Verify 12/06 NA [facility] GLUCOSE w/Lab /2012 [facility] TESTING Center CHEMISTRY AGAP 13.5 10.0 - 12/06 Normal [facility] 20.0 /2012 [facility] CHEMISTRY Calcium Lvl 8.1 8.5 - 10.5 12/06 [facility] CHEMISTRY CO2 28 24 - 32 12/06 Normal [facility] CHEMISTRY Chloride Lvl 101 95 - 109 12/06 Normal [facility] CHEMISTRY eGFR 104 12/06 NA <sup>8</sup>R esult [...] clinical guidelines
of the [place] [employer]. CHEMISTRY BUN 2 7 - 22 12/06 [facility] CHEMISTRY Creatinine 0.7 0.5 - 1.4 12/06 Normal [facility] CHEMISTRY Sodium Lvl 139 135 - 145 12/06 [facility] CHEMISTRY Potassium Lvl 3.5 3.5 - 5.1 12/06 Normal [facility] CHEMISTRY Lipase Lvl 62 73 - 393 12/06 [facility] CHEMISTRY Alk Phos 92 39 - 136 / Normal [facility] CHEMISTRY Albumin Lvl 2.7 3.5 - 5.0 / LOW [facility] CHEMISTRY Total Protein 5.8 6.4 - 8.4 / LOW [facility] CHEMISTRY Globulin 3.1 2.0 - 4.0 / Normal [facility] CHEMISTRY A/G Ratio 0.9 0.7 - 1.6 / Normal [facility] CHEMISTRY AST 74 0 - 37 / HI [facility] CHEMISTRY ALT 50 0 - 65 / Normal [facility] CHEMISTRY Bili Indirect 0.1 0.0 - 1.0 12/06 Normal [facility] CHEMISTRY Bili Total 0.2 0.2 - 1.3 12/06 Normal [facility] CHEMISTRY Bili Direct 0.1 0.0 - 0.3 12/06 Normal [facility] CHEMISTRY eGFR 109 12/05 NA <sup>9</sup>R esult [...] clinical guidelines
of the [place] [employer]. CHEMISTRY Creatinine 0.6 0.5 - 1.4 12/05 Normal [place] Lvl /2012 Medical [place] CHEMISTRY BUN 1 7 - 22 04 LOW Medical [place] CHEMISTRY Chloride Lvl 102 95 - 109 04 Normal [facility] CHEMISTRY Potassium Lvl 3.3 3.5 - 5.1 12/05 [facility] CHEMISTRY Sodium Lvl 140 135 - 145 12/05 Normal [facility] CHEMISTRY Calcium Lvl 7.9 8.5 - 10.5 12/05 [facility] CHEMISTRY CO2 29 24 - 32 04 Normal [facility] CHEMISTRY AGAP 12.3 10.0 - 04 Normal [place] 20.0 [facility] CHEMISTRY Ca Norm mgdL 4.84 4.65 - 12/03 Normal [place] 01.23 [facility] CHEMISTRY Ca Ion mgdL 4.84 4.65 - 12/03 Normal [place] 5. [facility] CHEMISTRY Ca Ion 1.21 1.16 - 12/03 Normal [place] 10.05 [facility] CHEMISTRY Ca Norm 1.21 1.16 - 12/03 Normal [place] 1. [facility] CHEMISTRY Magnesium Lvl 1.8 1.8 - 2.4 12/03 Normal [facility] CHEMISTRY Phosphorus 3.4 2.5 - 4.5 12/03 Normal [facility] HEMATOLOGY Lymphocytes # 1.8 1.0 - 5.5 12/03 Normal [facility] HEMATOLOGY Lymphocytes 23.6 20.0 - 12/03 Normal [place] 40.0 [facility] HEMATOLOGY Eosinophils 2.9 0.0 - 4.0 12/03 Normal [facility] HEMATOLOGY Monocytes 9.1 2.0 - 12.0 12/03 Normal [facility] HEMATOLOGY Basophils 0.6 0.0 - 1.0 12/03 Normal [facility] HEMATOLOGY Segs-Bands # 5.0 1.5 - 8.1 12/03 Normal [facility] HEMATOLOGY Segs 63.8 45.0 - 12/03 Normal [place] 75.0 /2012 [facility] HEMATOLOGY Monocytes # 0.7 0.0 - 0.8 12/03 Normal [facility] HEMATOLOGY Eosinophils # 0.2 0.0 - 0.5 12/03 Normal [facility] HEMATOLOGY Microcyte 1+ None Seen 12/03 ABN [facility] *ABN* /2012 Medical (12/03/2012 01:02:00) Center HEMATOLOGY WBC 7.8 3.7 - 10.4 12/03 Normal [facility] HEMATOLOGY Hct 27.8 36.0 - 12/03 LOW [facility] 48.0 /2012 [facility] HEMATOLOGY MPV 8.5 7.4 - 10.4 12/03 Normal [facility] HEMATOLOGY MCHC 32.4 32.0 - 12/03 Normal [facility] 36.0 /2012 [facility] HEMATOLOGY RDW 18.9 11.5 - 12/03 HI [facility] 14.5 /2012 [facility] HEMATOLOGY MCH 24.6 27.0 - 12/03 LOW [facility] 31.0 /2012 [facility] HEMATOLOGY RBC 3.66 4.20 - 12/03 LOW [facility] 5.40 /2012 [facility] HEMATOLOGY MCV 75.9 81.0 - 12/03 LOW [facility] 99.0 /2012 [facility] HEMATOLOGY Platelet 224 133 - 450 12/03 Normal [facility] HEMATOLOGY Hgb 9.0 12.0 - 12/03 LOW [facility] 16.0 /2012 [facility] Microbiolog Culture: 12/02 [facility] y Blood /2012 [facility] Microbiolog Culture: MRSA 12/02 [facility] y /2012 [facility] Microbiolog Culture: 12/02 [facility] y Resistant [facility] Center Screen CHEMISTRY Ketone 1.42 <=0.27 12/02 [facility] Quantitative [facility] URINALYSIS UA WBC 1 0 - 5 12/02 Normal [facility] URINALYSIS UA RBC <1 0 - 2 12/02 Normal [facility] URINALYSIS UA 0.1 - 1.0 12/02 NA [facility] Urobilinogen /2012 [facility] URINALYSIS UA Sq Epi Moderate /LPF Few 12/02 ABN [facility] *ABN* Medical (12/02/2012 04:02:55) Center URINALYSIS UA Leuk Est Negative Negative 12/02 Normal [facility] (12/02/2012 04:02:55) Medical Center URINALYSIS UA Nitrite Negative Negative 12/02 Normal [facility] (12/02/2012 04:02:55) Medical Center URINALYSIS UA Mucus Few /LPF None Seen 12/02 [facility] *NA* /2012 Medical (12/02/2012 04:02:55) Center URINALYSIS UA Ketones 40 mg/dL Negative 12/02 ABN [place] *ABN* Medical (12/02/2012 04:02:55) Center URINALYSIS UA Blood Negative Negative 12/02 Normal [facility] (12/02/2012 04:02:55) Medical Center URINALYSIS UA Glucose >=1000 mg/dL Negative 12/02 ABN [facility] *ABN* Medical (12/02/2012 04:02:55) Center URINALYSIS UA Bili Negative Negative 12/02 NA [facility] *NA* Medical (12/02/2012 04:02:55) Center URINALYSIS UA Protein Negative mg/dL Negative 12/02 Normal [facility] (12/02/2012 04:02:55) Medical Center URINALYSIS UA Turbidity Clear Clear 12/02 Normal [facility] (12/02/2012 04:02:55) Medical Center URINALYSIS UA pH 5.5 5.0 - 8.0 12/02 Normal [facility] URINALYSIS UA Spec Grav 1.010 <=1.030 12/02 Normal [facility] URINALYSIS UA Color Yellow Yellow 12/02 NA [facility] *NA* Medical (12/02/2012 04:02:55) Center HEMATOLOGY MPV 8.9 7.4 - 10.4 12/02 Normal [facility] HEMATOLOGY Hct 27.9 36.0 - 12/02 LOW [place] 48.0 /2012 [facility] HEMATOLOGY MCV 76.1 81.0 - 12/02 LOW [facility] 99.0 /2012 [facility] HEMATOLOGY MCH 25.2 27.0 - 12/02 LOW [place] 31.0 /2012 [facility] HEMATOLOGY MCHC 33.2 32.0 - 12/02 Normal [facility] 36.0 [facility] HEMATOLOGY RDW 19.3 11.5 - 12/02 HI [place] 14.5 [facility] HEMATOLOGY Platelet 224 133 - 450 12/02 Normal [facility] HEMATOLOGY WBC 8.6 3.7 - 10.4 12/02 Normal [facility] HEMATOLOGY Hgb 9.3 12.0 - 12/02 LOW [place] 16.0 /2012 [facility] HEMATOLOGY RBC 3.67 4.20 - 12/02 LOW [place] 5.40 /2012 [facility] HEMATOLOGY Segs-Bands # 6.4 1.5 - 8.1 12/02 Normal [facility] HEMATOLOGY Lymphocytes # 1.5 1.0 - 5.5 12/02 Normal [facility] HEMATOLOGY Eosinophils 0.6 0.0 - 4.0 12/02 Normal [facility] HEMATOLOGY Basophils 0.7 0.0 - 1.0 12/02 Normal [facility] HEMATOLOGY Lymphocytes 17.3 20.0 - 12/02 LOW [place] 40.0 [facility] HEMATOLOGY Monocytes # 0.7 0.0 - 0.8 12/02 Normal [facility] HEMATOLOGY Microcyte 1+ None Seen 12/02 ABN [place] *ABN* /2012 Medical (12/02/2012 04:02:51) [place] HEMATOLOGY Eosinophils # 0.1 0.0 - 0.5 12/02 Normal [facility] HEMATOLOGY Basophils # 0.1 0.0 - 0.2 12/02 Normal [facility] HEMATOLOGY Segs 73.8 45.0 - 12/02 Normal [place] 75.0 [facility] HEMATOLOGY Monocytes 7.6 2.0 - 12.0 12/02 Normal [facility] Microbiolog Culture: 12/02 y [facility] CHEMISTRY POC A Glu 305 70 - 99 12/02 HI [facility] CHEMISTRY POC A Hct 29.0 36.0 - 12/02 LOW [facility] 48.0 [facility] CHEMISTRY POC A O2 Sat 97.0 95.0 - 12/02 Normal 100.0 [facility] CHEMISTRY POC A K 3.4 3.5 - 5.1 12/02 LOW [facility] CHEMISTRY POC A Na 130 135 - 145 12/02 LOW [facility] CHEMISTRY POC A PCO2 38 35 - 45 12/02 Normal [facility] CHEMISTRY POC A BE 2 -2-2 - 2 12/02 Normal [facility] CHEMISTRY POC A HCO3 26 22 - 26 12/02 Normal [facility] CHEMISTRY POC A Source ART 12/02 NA [facility] CHEMISTRY POC A PO2 89 80 - 100 12/02 Normal [facility] CHEMISTRY POC A pH 7.44 7.35 - 12/02 Normal [facility] [place] 7.45 [facility] CHEMISTRY POC A Temp 37.0 12/02 NA [facility] CHEMISTRY POC A Ca Ion 1.12 1.16 - 12/02 LOW [place] 1.30 [facility] CHEMISTRY POC A LA 0.8 0.5 - 2.2 12/02 Normal [facility] CHEMISTRY Magnesium Lvl 1.9 1.8 - 2.4 12/02 Normal [facility] CHEMISTRY Phosphorus 2.7 2.5 - 4.5 12/02 Normal [facility] CHEMISTRY Ca Norm mgdL 4.36 4.65 - 12/02 LOW [place] 5. [facility] CHEMISTRY Ca Ion 1.14 1.16 - 12/02 LOW [place] 1.30 [facility] CHEMISTRY Ca Ion mgdL 4.56 4.65 - 12/02 LOW [place] 5. [facility] CHEMISTRY Ca Norm 1.09 1.16 - 12/02 LOW [place] 1. Medical [place] HEMATOLOGY Platelet 223 133 - 450 12/02 Normal [facility] HEMATOLOGY MPV 9.2 7.4 - 10.4 12/02 Normal [facility] HEMATOLOGY MCHC 32.3 32.0 - 12/02 Normal [place] 36.0 [facility] HEMATOLOGY RDW 19.2 11.5 - 12/02 HI [place] 14.5 Medical Center HEMATOLOGY WBC 7.6 3.7 - 10.4 12/02 Normal [facility] HEMATOLOGY Hgb 9.2 12.0 - 12/02 [facility] [place] 16.0 [facility] HEMATOLOGY Hct 28.6 36.0 - 12/02 LOW [place] 48.0 /2012 [facility] HEMATOLOGY MCV 76.3 81.0 - 12/02 [facility] [place] 99.0 /2012 Medical Center HEMATOLOGY MCH 24.6 27.0 - 12/02 LOW [place] 31.0 [facility] HEMATOLOGY RBC 3.74 4.20 - 12/02 LOW [place] 5.40 [facility] HEMATOLOGY Microcyte 1+ None Seen 12/02 ABN [place] *ABN* /2012 Medical (12/02/2012 03:00:00) Center HEMATOLOGY Basophils # 0.1 0.0 - 0.2 12/02 Normal Medical Center HEMATOLOGY Monocytes # 0.6 0.0 - 0.8 12/02 Normal [facility] HEMATOLOGY Lymphocytes # 1.9 1.0 - 5.5 12/02 Normal [facility] HEMATOLOGY Segs-Bands # 5.0 1.5 - 8.1 12/02 Normal [facility] HEMATOLOGY Segs 65.5 45.0 - 12/02 Normal [place] 75.0 /2012 [facility] HEMATOLOGY Lymphocytes 25.0 20.0 - 12/02 Normal [place] 40.0 /2012 [facility] HEMATOLOGY Monocytes 8.4 2.0 - 12.0 12/02 Normal [facility] HEMATOLOGY Eosinophils 0.4 0.0 - 4.0 12/02 Normal [facility] HEMATOLOGY Basophils 0.7 0.0 - 1.0 12/02 Normal [facility] CHEMISTRY Magnesium Lvl 2.0 1.8 - 2.4 12/01 Normal [facility] CHEMISTRY Ca Norm mgdL 4.48 4.65 - 12/01 LOW [facility] 5. [facility] CHEMISTRY Ca Ion mgdL 4.68 4.65 - 12/01 Normal [facility] 5. [facility] CHEMISTRY Ca Ion 1.17 1.16 - 12/01 Normal [facility] 1. [facility] CHEMISTRY Ca Norm 1.12 1.16 - 12/01 LOW [facility] 1. [facility] CHEMISTRY Phosphorus 2.7 2.5 - 4.5 12/01 Normal [facility] URINALYSIS UA 0.1 - 1.0 11/30 NA [facility] Urobilinogen [facility] URINALYSIS UA Mucus Few /LPF None Seen 11/30 NA [facility] *NA* /2012 Medical (11/30/2012 17:41:33) Center URINALYSIS UA WBC <1 0 - 5 11/30 Normal [facility] URINALYSIS UA Sq Epi Moderate /LPF Few 11/30 ABN [facility] *ABN* Medical (11/30/2012 17:41:33) Center URINALYSIS UA Protein Negative mg/dL Negative 11/30 Normal [facility] (11/30/2012 17:41:33) Medical Center URINALYSIS UA pH 5.0 5.0 - 8.0 11/30 Normal [facility] URINALYSIS UA Spec Grav 1.004 <=1.030 11/30 Normal Medical Center URINALYSIS UA Turbidity Clear Clear 11/30 Normal [facility] (11/30/2012 17:41:33) Medical Center URINALYSIS UA Color Light Yellow Yellow 11/30 NA [facility] *NA* Medical (11/30/2012 17:41:33) Center URINALYSIS UA Leuk Est Negative Negative 11/30 Normal [facility] (11/30/2012 17:41:33) Medical Center URINALYSIS UA Nitrite Negative Negative 11/30 Normal [facility] (11/30/2012 17:41:33) Medical Center URINALYSIS UA Blood Negative Negative 11/30 Normal [facility] (11/30/2012 17:41:33) Medical Center URINALYSIS UA Bili Negative Negative 11/30 NA [facility] *NA* Medical (11/30/2012 17:41:33) Center URINALYSIS UA Ketones 10 mg/dL Negative 11/30 ABN [facility] *ABN* Medical (11/30/2012 17:41:33) Center URINALYSIS UA Glucose Negative mg/dL Negative 11/30 NA [facility] *NA* Medical (11/30/2012 17:41:33) Center CHEMISTRY Ketone 1.65 <=0.27 11/30 HI [facility] HEMATOLOGY PT 14.1 12.0 - 11/30 Normal [facility] 14.7 Medical Center HEMATOLOGY PTT 28.1 22.9 - 11/30 Normal <sup>18</sup> [facility] 35.8 Interpretive Medical Data: Heparin Center Therapeutic Range: 57 - 92 Seconds HEMATOLOGY INR 1.07 0.85 - 11/30 Normal <sup>16</sup> [facility] 1. Interpretive Medical Data: Center RECOMMENDED RANGES FOR PROTIME INR:
2.0-3.0 for most medical and surgical thromboemboli c states.
2.5-3.5 for artificial heart valves and recurrent embolism.<br/ >
INR SHOULD BE USED ONLY FOR PATIENTS ON STABLE ANTICOAGULANT THERAPY. CHEMISTRY U Potassium 31.2 11/30 NA <sup>14</sup> Interpretive Medical Data: No Center established reference ranges. CHEMISTRY U Sodium 87 11/30 NA <sup>13</sup> MH Interpretive Medical Data: No Center established reference ranges. CHEMISTRY U Chloride 134 11/30 NA [facility] CHEMISTRY Bili Total 0.4 0.2 - 1.3 11/30 Normal [facility] CHEMISTRY Total Protein 6.3 6.4 - 8.4 11/30 LOW [facility] CHEMISTRY Albumin Lvl 2.9 3.5 - 5.0 11/30 LOW [facility] CHEMISTRY Alk Phos 127 39 - 136 11/30 Normal [facility] CHEMISTRY Bili Direct 0.2 0.0 - 0.3 11/30 Normal [facility] CHEMISTRY AST 22 0 - 37 11/30 Normal [facility] CHEMISTRY ALT 20 0 - 65 11/30 Normal [facility] CHEMISTRY A/G Ratio 0.9 0.7 - 1.6 11/30 Normal [facility] CHEMISTRY Bili Indirect 0.2 0.0 - 1.0 11/30 Normal [facility] CHEMISTRY Globulin 3.4 2.0 - 4.0 11/30 Normal [facility] HEMATOLOGY Basophils # 0.1 0.0 - 0.2 11/30 Normal [facility] HEMATOLOGY PT 13.9 12.0 - 11/30 Normal [facility] 14.7 [facility] HEMATOLOGY PTT 26.5 22.9 - 11/30 Normal <sup>19</sup> [facility] 35.8 /2012 Interpretive Medical Data: Heparin Center Therapeutic Range: 57 - 92 Seconds HEMATOLOGY INR 1.05 0.85 - 11/30 Normal <sup>17</sup> [facility] 09.22 Interpretive Medical Data: Center RECOMMENDED RANGES FOR PROTIME INR:
2.0-3.0 for most medical and surgical thromboemboli c states.
2.5-3.5 for artificial heart valves and recurrent embolism.<br/ >
INR SHOULD BE USED ONLY FOR PATIENTS ON STABLE ANTICOAGULANT THERAPY. CHEMISTRY POC V Temp 37.0 11/29 NA [facility] CHEMISTRY POC V Ion Ca 1.16 1.16 - 11/29 Normal [facility] . [facility] CHEMISTRY POC V K 3.5 3.5 - [...] POC A HCO3 14 22 - 26 11/29 LOW Medical Center CHEMISTRY POC A PCO2 26 35 - 45 03/26 CRIT [facility] CHEMISTRY POC A PO2 115 80 - 100 11/29 HI [facility] CHEMISTRY POC A pH 7.33 7.35 - 11/29 [facility] BACTERIAL - MRSA by PCR Positive 1, 2 11/29 ABN <sup>1</sup>R [facility] SEROLOGY *ABN* /2012 esult Medical (11/29/2012 [...] the Molecular Diagnostic Laboratory within the [facility]. The Molecular Diagnostic Laboratory is authorized under the Clinical Laboratory Improvement Amendment of 1988 (CLIA-88) to perform high complexity testing. CHEMISTRY Temp Art 37.0 11/29 NA [facility] CHEMISTRY O2 Sat Art 96.6 95.0 - 11/29 Normal [facility] 100.0 [facility] CHEMISTRY pO2 Art 96 80 - 100 11/29 Normal [facility] CHEMISTRY pCO2 Art 25 35 - 45 11/29 CRIT <sup>15</sup> Result Medical Comment: Center Critical Result(s) called to jose rodriguez at _11/29/2012 12:25:56 CDT byandrey_. Read back OK. CHEMISTRY BE Art -12 -2-2 - 2 11/29 LOW [facility] CHEMISTRY HCO3 Art 12 - 11/29 [facility] CHEMISTRY pH Art 7.30 7.35 - 11/29 [facility] 7 [facility] CHEMISTRY A/G Ratio 0.8 0.7 - 1.6 11/29 Normal [facility] CHEMISTRY Globulin 4.0 2.0 - 4.0 11/29 Normal [facility] CHEMISTRY AST 17 0 - 37 11/29 Normal [facility] CHEMISTRY Bili Total 0.8 0.2 - 1.3 11/29 Normal [facility] CHEMISTRY B/C Ratio 14 6 - 25 11/29 Normal [facility] CHEMISTRY Total Protein 7.4 6.4 - 8.4 11/29 Normal [facility] CHEMISTRY ALT 22 0 - 65 11/29 Normal [facility] CHEMISTRY Albumin Lvl 3.4 3.5 - 5.0 11/29 LOW [facility] CHEMISTRY Alk Phos 126 39 - 136 11/29 Normal [facility] CHEMISTRY Troponin-I <0.02 0.00 - 11/29 Normal [facility] 0.40 [facility] CHEMISTRY Lipase Lvl 70 73 - 393 11/29 LOW [facility] CHEMISTRY B/C Ratio 10 6 - 25 11/29 Normal [facility] HEMATOLOGY Hypochrom Slight None Seen 11/29 Normal [facility] (11/28/2012 21:00:20) Medical Center HEMATOLOGY Polychrom Slight None Seen 11/29 Normal [facility] (11/28/2012 21:00:20) Medical Center HEMATOLOGY Anisocyte 1+ None Seen 11/29 [facility] *ABN* Medical (11/28/2012 21:00:20) Center HEMATOLOGY Large Plt Slight None Seen 11/29 [facility] *ABN* Medical (11/28/2012 21:00:20) Center HEMATOLOGY Eosinophils # 0.2 0.0 - 0.5 11/29 Normal [facility] CHEMISTRY U Preg Negative Negative 11/29 Normal [facility] (11/28/2012 20:55:00) Medical Center URINALYSIS UA Blood Negative Negative 11/29 Normal [facility] (11/28/2012 20:55:00) [facility] URINALYSIS UA Bili Small 6 Negative 11/29 ABN <sup>6</sup>R [facility] *ABN* esult Medical (11/28/2012 20:55:00) Comment: Center Interpret positive bilirubin results with caution. Confirmatory testing
n ot possible due to the unavailabilit y of reagent. Correlation with
seru m chemistry results recommended. URINALYSIS UA Protein Negative Negative 11/29 Normal [facility] (11/28/2012 20:55:00) [facility] URINALYSIS Micro? Not Indicated 11/29 Normal [facility] (11/28/2012 20:55:00) Medical Center URINALYSIS UA Glucose Negative Negative 11/29 Normal [facility] (11/28/2012 20:55:00) Medical Center URINALYSIS UA Ketones 40 mg/dL Negative 11/29 ABN [facility] *ABN* [facility] (11/28/2012 20:55:00) Center URINALYSIS UA Leuk Est Negative Negative 11/29 Normal [facility] (11/28/2012 20:55:00) [facility] URINALYSIS UA 0.2 0.1 - 1.0 11/29 Normal [facility] Urobilinogen [facility] URINALYSIS UA Nitrite Negative Negative 11/29 Normal [facility] (11/28/2012 20:55:00) [facility] URINALYSIS UA Spec Grav 1.010 <=1.030 11/29 Normal [facility] URINALYSIS UA pH 6.0 5.0 - 8.0 11/29 Normal [facility] URINALYSIS UA Color Yellow Yellow 11/29 NA [facility] *NA* [facility] (11/28/2012 20:55:00) Center URINALYSIS UA Turbidity Clear Clear 11/29 Normal [facility] (11/28/2012 20:55:00) Medical Center BEDSIDE Comment1 Notify 11/17 NA [facility] GLUCOSE MARTÍNEZ/ Medical TESTING Center BEDSIDE Gluc POC 219 70 - 99 11/17 HI <sup>1</sup>I [facility] GLUCOSE [facility] nterpretive Medical TESTING Data: Center Upper Reportable Limit: 200 mg/dL. BEDSIDE Gluc POC 255 70 - 99 11/17 HI <sup>2</sup>I [facility] GLUCOSE [facility] nterpretive Medical TESTING Data: [place] Upper Reportable Limit: 200 mg/dL. BEDSIDE Comment1 Notify 11/17 [facility] GLUCOSE MARTÍNEZ/ Medical TESTING Center CHEMISTRY Troponin-T <0.010 0.000 - 11/17 Normal [facility] 0.100 /2012 [facility] CHEMISTRY Troponin-I <0.02 0.00 - 11/17 Normal [facility] 0.40 [facility] CHEMISTRY Total CK 52 12 - 191 11/17 Normal [facility] CHEMISTRY eGFR 109 11/17 NA <sup>4</sup>R esult [...] Calcium Lvl 7.7 8.5 - 10.5 11/17 [facility] CHEMISTRY AGAP 16.2 10.0 - 11/17 [facility] 20.0 [facility] CHEMISTRY Chloride Lvl 100 95 - 109 11/17 [facility] CHEMISTRY Potassium Lvl 4.2 3.5 - 5.1 11/17 Normal [facility] CHEMISTRY Sodium Lvl 134 135 - 145 11/17 [facility] CHEMISTRY CO2 22 24 - 32 11/17 [facility] CHEMISTRY Creatinine 0.6 0.5 - 1.4 11/17 Normal [facility]2012 [facility] CHEMISTRY BUN 4 7 - 22 11/17 [facility] CHEMISTRY Glucose Lvl 237 70 - 99 11/17 HI <sup>6</sup>I nterpretive Medical Data: [facility] Center reference range values reflect the clinical guidelines
of the [place] [employer]. CHEMISTRY Magnesium Lvl 1.4 1.8 - 2.4 11/17 LOW [facility] CHEMISTRY Phosphorus 3.4 2.5 - 4.5 11/17 Normal [facility] HEMATOLOGY Segs 60.3 45.0 - 11/17 Normal [facility] 75.0 /2012 [facility] HEMATOLOGY Monocytes 9.0 2.0 - 12.0 11/17 Normal [facility] HEMATOLOGY Lymphocytes 27.8 20.0 - 11/17 Normal [place] 40.0 [facility] HEMATOLOGY Eosinophils 2.1 0.0 - 4.0 11/17 Normal [facility] HEMATOLOGY Lymphocytes # 2.3 1.0 - 5.5 11/17 Normal [facility] HEMATOLOGY Eosinophils # 0.2 0.0 - 0.5 11/17 Normal [facility] HEMATOLOGY Basophils 0.8 0.0 - 1.0 11/17 Normal [facility] HEMATOLOGY Segs-Bands # 5.1 1.5 - 8.1 11/17 Normal [facility] HEMATOLOGY Basophils # 0.1 0.0 - 0.2 11/17 Normal [facility] HEMATOLOGY Monocytes # 0.8 0.0 - 0.8 11/17 Normal [facility] HEMATOLOGY Microcyte 1+ None Seen 11/17 [facility] *ABN* /2012 Medical (11/17/2012 04:33:00) [place] HEMATOLOGY INR 1.09 0.85 - 11/17 Normal <sup>8</sup>I [facility] 1.17 nterpretive Medical Data: Center RECOMMENDED RANGES FOR PROTIME INR:
2.0-3.0 for most medical and surgical thromboemboli c states.
2.5-3.5 for artificial heart valves and recurrent embolism.<br/ >
INR SHOULD BE USED ONLY FOR PATIENTS ON STABLE ANTICOAGULANT THERAPY. HEMATOLOGY PT 14.3 12.0 - 11/17 Normal [facility] 14.7 [facility] HEMATOLOGY PTT 31.8 22.9 - 11/17 Normal <sup>9</sup>I [facility] 35.8 /2012 nterpretive Medical Data: Heparin Center Therapeutic Range: 57 - 92 Seconds HEMATOLOGY Platelet 177 133 - 450 11/17 Normal [facility] HEMATOLOGY MPV 9.5 7.4 - 10.4 11/17 Normal [facility] HEMATOLOGY MCH 24.5 27.0 - 03 LOW [place] 31.0 /2012 [facility] Center HEMATOLOGY RDW 18.9 11.5 - 03 HI [place] 14.5 /2012 [facility] Center HEMATOLOGY MCHC 32.3 32.0 - 03 Normal [place] 36.0 /2012 [facility] Center HEMATOLOGY MCV 75.9 81.0 - 11/17 LOW [place] 99.0 /2012 Medical Center HEMATOLOGY RBC 3.67 4.20 - 03 LOW [place] 5.40 /2012 Medical Center HEMATOLOGY WBC 8.4 3.7 - 10.4 11/17 Normal [facility] HEMATOLOGY Hct 27.9 36.0 - 03 LOW [place] 48.0 /2012 [facility] HEMATOLOGY Hgb 9.0 12.0 - 11/17 LOW [place] 16.0 /2012 [facility] CHEMISTRY Troponin-T <0.010 0.000 - 11/17 Normal [place] 0.100 [facility] CHEMISTRY Troponin-I <0.02 0.00 - 11/17 Normal [facility] 0.40 [facility] CHEMISTRY Total CK 76 12 - 191 11/17 Normal [facility] CHEMISTRY CK MB Index 0.8 0.0 - 2.5 11/17 Normal [facility] CHEMISTRY CK MB 0.6 0.5 - 3.6 11/17 Normal [facility] BEDSIDE Gluc POC 305 70 - 99 11/17 HI <sup>3</sup>I [facility] GLUCOSE [facility] /2012 nterpretive Medical TESTING Data: Center Upper Reportable Limit: 200 mg/dL. BEDSIDE Comment1 Notify 11/17 NA [facility] GLUCOSE RN/MD /2012 Medical TESTING Center CHEMISTRY Magnesium Lvl 1.4 1.8 - 2.4 11/16 LOW [facility] CHEMISTRY Total CK 27 12 - 191 11/16 Normal [facility] CHEMISTRY Troponin-T <0.010 0.000 - 11/16 Normal [place] 0.100 [facility] CHEMISTRY Troponin-I <0.02 0.00 - 11/16 Normal [place] 0.40 [facility] CHEMISTRY B/C Ratio 6 6 - 25 11/16 Normal [facility] CHEMISTRY A/G Ratio 1.0 0.7 - 1.6 11/16 Normal [facility] CHEMISTRY AGAP 18.6 10.0 - 11/16 Normal [facility] 20.0 [facility] CHEMISTRY Globulin 3.5 2.0 - 4.0 11/16 Normal [facility] CHEMISTRY eGFR 67 11/16 NA <sup>5</sup>R esult [...] Lvl 3.4 3.5 - 5.0 11/16 LOW [facility] CHEMISTRY Alk Phos 88 39 - 136 11/16 Normal [facility] CHEMISTRY Glucose Lvl 256 70 - 99 11/16 HI <sup>7</sup>I nterpretive Medical Data: Adult Center reference range values reflect the clinical guidelines
of the [place] [employer]. CHEMISTRY BUN 6 7 - 22 11/16 LOW [facility] CHEMISTRY Sodium Lvl 136 135 - 145 11/16 Normal [facility] CHEMISTRY Chloride Lvl 99 95 - 109 11/16 Normal [facility] CHEMISTRY Creatinine 1.0 0.5 - 1.4 11/16 Normal [facility] CHEMISTRY Potassium Lvl 3.6 3.5 - 5.1 11/16 Normal [facility] CHEMISTRY CO2 22 24 - 32 11/16 [facility] CHEMISTRY Calcium Lvl 8.8 8.5 - 10.5 11/16 Normal [facility] CHEMISTRY Bili Total 0.6 0.2 - 1.3 11/16 Normal [facility] CHEMISTRY Total Protein 6.9 6.4 - 8.4 11/16 Normal [facility] CHEMISTRY AST 52 0 - 37 11/16 HI [facility] CHEMISTRY ALT 52 0 - 65 11/16 Normal [facility] CHEMISTRY Phosphorus 1.6 2.5 - 4.5 11/16 LOW [facility] HEMATOLOGY Lymphocytes 16.8 20.0 - 11/16 LOW [place] 40.0 [facility] HEMATOLOGY Segs 72.3 45.0 - 11/16 Normal [facility] 75.0 [facility] HEMATOLOGY Large Plt Slight None Seen 11/16 [facility] (11/16/2012 13:17:00) Center HEMATOLOGY Elliptocyte Slight None Seen 11/16 [facility] (11/16/2012 13:17:00) Center HEMATOLOGY Polychrom Slight None Seen 11/16 Normal [facility] (11/16/2012 13:17:00) [facility] HEMATOLOGY Microcyte 1+ None Seen 11/16 [facility] (11/16/2012 13:17:00) Center HEMATOLOGY Basophils # 0.1 0.0 - 0.2 11/16 Normal [facility] HEMATOLOGY Hypochrom Slight None Seen 11/16 Normal [facility] (11/16/2012 13:17:00) Medical Center HEMATOLOGY Anisocyte 1+ None Seen 11/16 [facility] (11/16/2012 13:17:00) Center HEMATOLOGY Schistocyte Occasional 11/16 NA [facility] HEMATOLOGY Monocytes 8.6 2.0 - 12.0 11/16 Normal [facility] HEMATOLOGY Eosinophils 1.5 0.0 - 4.0 11/16 Normal [facility] HEMATOLOGY Monocytes # 1.1 0.0 - 0.8 11/16 HI [facility] HEMATOLOGY Segs-Bands # 9.7 1.5 - 8.1 11/16 HI [facility] HEMATOLOGY Eosinophils # 0.2 0.0 - 0.5 11/16 Normal [facility] HEMATOLOGY Lymphocytes # 2.2 1.0 - 5.5 11/16 Normal [facility] HEMATOLOGY Basophils 0.8 0.0 - 1.0 11/16 Normal [facility] HEMATOLOGY Hgb 10.8 12.0 - 03 LOW [place] 16.0 /2012 [facility] HEMATOLOGY RBC 4.29 4.20 - 03 Normal [place] 5.40 /2012 [facility] HEMATOLOGY WBC 13.3 3.7 - 10.4 11/16 HI [facility] HEMATOLOGY RDW 18.0 11.5 - 03 HI [place] 14.5 /2012 Medical Center HEMATOLOGY Hct 32.4 36.0 - 03 LOW [place] 48.0 /2012 [facility] HEMATOLOGY MCHC 33.3 32.0 - 03 Normal [place] 36.0 /2012 [facility] HEMATOLOGY MCV 75.4 81.0 - 03 LOW [place] 99.0 /2012 [facility] HEMATOLOGY MCH 25.1 27.0 - 03 [facility] [place] 31.0 /2012 [facility] HEMATOLOGY Platelet 230 133 - 450 11/16 Normal [facility] HEMATOLOGY MPV 9.9 7.4 - 10.4 11/16 Normal [facility] BEDSIDE Comment1 Notify 11/14 NA [facility] GLUCOSE MARTÍNEZ/ /2012 [facility] TESTING Center BEDSIDE Gluc POC 266 70 - 99 11/14 HI <sup>2</sup>I [facility] GLUCOSE [facility] nterpretive Medical TESTING Data: [place] Upper Reportable Limit: 200 mg/dL. BEDSIDE Comment1 Notify 11/14 NA [facility] GLUCOSE MARTÍNEZ/ /2012 [facility] TESTING Center BEDSIDE Gluc POC 140 70 - 99 11/14 HI <sup>3</sup>I [facility] GLUCOSE [facility] nterpretive Medical TESTING Data: [place] Upper Reportable Limit: 200 mg/dL. BEDSIDE Comment1 Notify 11/14 NA [facility] GLUCOSE MARTÍNEZ/ /2012 [facility] TESTING Center BEDSIDE Gluc POC 201 70 - 99 11/14 HI <sup>4</sup>I [facility] GLUCOSE [facility] nterpretive Medical TESTING Data: [place] Upper Reportable Limit: 200 mg/dL. CHEMISTRY A/G Ratio 0.9 0.7 - 1.6 11/14 Normal [facility] CHEMISTRY AST 41 0 - 37 11/14 [facility] CHEMISTRY eGFR 104 11/14 NA [...] Albumin Lvl 2.9 3.5 - 5.0 11/14 [facility] CHEMISTRY Alk Phos 84 39 - 136 11/14 Normal [facility] CHEMISTRY BUN 3 7 - 22 11/14 [facility] CHEMISTRY Creatinine 0.7 0.5 - 1.4 11/14 Normal [facility] CHEMISTRY Sodium Lvl 136 135 - 145 11/14 Normal [facility]2012 [facility] CHEMISTRY Total Protein 6.3 6.4 - 8.4 11/14 [facility]2012 [facility] CHEMISTRY ALT 51 0 - 65 11/14 [facility] CHEMISTRY Potassium Lvl 3.7 3.5 - 5.1 11/14 Normal [facility]2012 [facility] CHEMISTRY Chloride Lvl 101 95 - 109 11/14 [facility] CHEMISTRY Glucose Lvl 210 70 - 99 11/14 HI <sup>9</sup>I nterpretive Medical Data: Adult Center reference range values reflect the clinical guidelines
of the [place] [employer]. CHEMISTRY AGAP 15.7 10.0 - 11/14 Normal [facility] 20.0 [facility] CHEMISTRY B/C Ratio 4 6 - 25 11/14 [facility]2012 [facility] CHEMISTRY Globulin 3.4 2.0 - 4.0 11/14 [facility] CHEMISTRY CO2 23 24 - 32 11/14 LOW [facility] CHEMISTRY Bili Total 0.4 0.2 - 1.3 11/14 Normal [facility] CHEMISTRY Calcium Lvl 8.5 8.5 - 10.5 11/14 Normal [facility] CHEMISTRY Phosphorus 3.6 2.5 - 4.5 11/14 Normal [facility] CHEMISTRY Magnesium Lvl 1.5 1.8 - 2.4 11/14 LOW [facility] CHEMISTRY Ca Norm mgdL 3.52 4.65 - 11/14 LOW [place] . [facility] CHEMISTRY Ca Ion mgdL 3.32 4.65 - 11/14 CRIT [facility] 01.23 [facility] CHEMISTRY Ca Ion 0.83 1.16 - 11/14 CRIT <sup>15</sup> [facility] 10.05 Result Medical Comment: Center Critical Result(s) called to Arlin Rose at 11/14/2012 00:23:56 CDT_ by_tvs. Read back OK. CHEMISTRY Ca Norm 0.88 1.16 - 11/14 CRIT [facility] 1 [facility] HEMATOLOGY Platelet 221 133 - 450 11/14 Normal [facility] HEMATOLOGY RDW 19.0 11.5 - 03 [facility] [place] 14.5 /2012 Medical [place] HEMATOLOGY MCHC 32.4 32.0 - 11/14 [facility] [place] 36.0 /2012 [facility] HEMATOLOGY MCV 75.5 81.0 - 11/14 [facility] [place] 99.0 /2012 [facility] HEMATOLOGY Hct 35.5 36.0 - 11/14 [facility] [place] 48.0 /2012 [facility] HEMATOLOGY Hgb 11.5 12.0 - 03 [facility] [place] 16.0 /2012 [facility] HEMATOLOGY MCH 24.5 27.0 - 03 [facility] [place] 31.0 /2012 [facility] HEMATOLOGY MPV 9.1 7.4 - 10.4 11/14 Normal [facility] HEMATOLOGY RBC 4.70 4.20 - 11/14 Normal [place] 5.40 /2012 [facility] HEMATOLOGY WBC 8.6 3.7 - 10.4 11/14 Normal [facility] HEMATOLOGY Segs 53.3 45.0 - 03 Normal [place] 75.0 /2012 [facility] HEMATOLOGY Microcyte 1+ None Seen 11/14 ABN [place] *ABN* /2012 Medical (11/13/2012 23:45:00) Center HEMATOLOGY Basophils # 0.1 0.0 - 0.2 11/14 Normal [facility] HEMATOLOGY Eosinophils # 0.2 0.0 - 0.5 11/14 Normal 2012 [facility] HEMATOLOGY Monocytes # 0.9 0.0 - 0.8 11/14 HI [facility] HEMATOLOGY Lymphocytes # 2.9 1.0 - 5.5 11/14 Normal [facility] HEMATOLOGY Monocytes 10.3 2.0 - 12.0 11/14 Normal [facility] HEMATOLOGY Lymphocytes 33.6 20.0 - 03 Normal [place] 40.0 [facility] HEMATOLOGY Segs-Bands # 4.6 1.5 - 8.1 11/14 Normal [facility] HEMATOLOGY Basophils 0.7 0.0 - 1.0 11/14 Normal [facility] HEMATOLOGY Eosinophils 2.1 0.0 - 4.0 11/14 Normal [facility] CHEMISTRY Lipase Lvl 43 73 - 393 11/13 LOW [facility] CHEMISTRY Amylase Lvl 14 25 - 115 11/13 LOW [facility] CHEMISTRY A/G Ratio 0.8 0.7 - 1.6 11/13 Normal [facility] CHEMISTRY AST 56 0 - 37 11/13 [facility] CHEMISTRY Alk Phos 67 39 - 136 11/13 Normal 2012 [facility] CHEMISTRY Globulin 2.9 2.0 - 4.0 11/13 Normal [facility] CHEMISTRY Total Protein 5.3 6.4 - 8.4 11/13 LOW [facility] CHEMISTRY Albumin Lvl 2.4 3.5 - 5.0 11/13 LOW 2012 [facility] CHEMISTRY ALT 41 0 - 65 11/13 Normal 2012 [facility] CHEMISTRY Bili Indirect 0.3 0.0 - 1.0 11/13 Normal [facility] CHEMISTRY Bili Direct 0.1 0.0 - 0.3 11/13 Normal [facility] CHEMISTRY Bili Total 0.4 0.2 - 1.3 11/13 Normal [facility] CHEMISTRY eGFR 137 11/13 NA <sup>7</sup>R MH esult Medical Comment: The Center eGFR is [...] CHEMISTRY AGAP 17.3 10.0 - 11/13 Normal [facility] 20.0 [facility] CHEMISTRY Calcium Lvl 6.7 8.5 - 10.5 11/13 CRIT <sup>13</sup> Result Medical Comment: Center Critical Result(s) called to _hansel gustafson at _11/13/2012 06:59:47 CDT bylg. Read back OK. CHEMISTRY CO2 17 24 - 32 11/13 LOW [facility] CHEMISTRY Chloride Lvl 111 95 - 109 11/13 HI [facility] CHEMISTRY Potassium Lvl 3.3 3.5 - 5.1 11/13 LOW <sup>5</sup>R esult Medical Comment: Center Specimen Slightly Hemolyzed. CHEMISTRY Sodium Lvl 142 135 - 145 11/13 Normal [facility] CHEMISTRY Creatinine 0.3 0.5 - 1.4 11/13 LOW [facility] /2012 [facility] CHEMISTRY BUN 3 7 - 22 11/13 LOW [facility] CHEMISTRY Glucose Lvl 104 70 - 99 11/13 HI <sup>10</sup> Interpretive Medical Data: Adult Center reference range values reflect the clinical guidelines
of the [place] [employer]. CHEMISTRY Magnesium Lvl 1.3 1.8 - 2.4 03/10 LOW [facility] CHEMISTRY Phosphorus 2.8 2.5 - 4.5 03 Normal [facility] CHEMISTRY Ca Ion 1.01 1.16 - 11/13 [facility] [place] 1.30 [facility] CHEMISTRY Ca Norm 1.07 1.16 - 11/13 [facility] [place] 1.30 [facility] CHEMISTRY Ca Norm mgdL 4.28 4.65 - 11/13 [facility] [place] 5. [facility] CHEMISTRY Ca Ion mgdL 4.04 4.65 - 11/13 [facility] [place] 5.20 [facility] HEMATOLOGY MCV 78.6 81.0 - 03 [facility] [place] 99.0 /2012 [facility] HEMATOLOGY MPV 9.1 7.4 - 10.4 11/13 Normal [facility] HEMATOLOGY MCHC 31.1 32.0 - 03 [facility] [place] 36.0 /2012 [facility] HEMATOLOGY MCH 24.4 27.0 - 03 [facility] [place] 31.0 [facility] HEMATOLOGY Hct 29.4 36.0 - 11/13 [facility] [place] 48.0 /2012 [facility] HEMATOLOGY RDW 19.1 11.5 - 03 HI [place] 14.5 /2012 [facility] HEMATOLOGY Platelet 192 133 - 450 11/13 Normal [facility] HEMATOLOGY Hgb 9.1 12.0 - 03 [facility] [place] 16.0 /2012 [facility] HEMATOLOGY RBC 3.74 4.20 - 11/13 [facility] [place] 5.40 /2012 [facility] HEMATOLOGY WBC 6.8 3.7 - 10.4 11/13 Normal [facility] HEMATOLOGY Plt Morph Normal 11/13 Normal [facility] (11/13/2012 05:00:00) [facility] HEMATOLOGY Atypical 0.0 <=0.0 11/13 Normal [facility] Lymphs /2012 [facility] HEMATOLOGY RBC Morph Normal 11/13 Normal [facility] (11/13/2012 05:00:00) [facility] HEMATOLOGY Eosinophils 2.0 0.0 - 4.0 11/13 Normal [facility] HEMATOLOGY Bands 0.0 0.0 - 11.0 11/13 Normal [facility] HEMATOLOGY Segs 51.0 45.0 - 11/13 [facility] [place] 75.0 [facility] HEMATOLOGY Eosinophils # 0.1 0.0 - 0.5 03/10 Normal [facility] HEMATOLOGY Segs-Bands # 3.5 1.5 - 8.1 11/13 Normal [facility] HEMATOLOGY Monocytes 5.0 2.0 - 12.0 11/13 Normal [facility] HEMATOLOGY Lymphocytes 42.0 20.0 - 11/13 HI [facility] 40.0 [facility] HEMATOLOGY Monocytes # 0.3 0.0 - 0.8 11/13 Normal 2012 [facility] HEMATOLOGY Lymphocytes # 2.9 1.0 - 5.5 11/13 Normal [facility] INFECTIOUS C difficile Negative 1 Negative 11/13 Normal <sup>1</sup>I [facility] DISEASES DNA (11/12/2012 21:54:26) nterpretive Medical Data: [place] Chlorine Genie illumigene Clostridium difficile assay utilizes loop-mediated isothermal DNA amplification (LAMP) technology to detect a 204 bp region of the tcdA gene within the PaLoc gene segment present in all known toxigenic C. difficile strains.

The assay utilizes FDA cleared IVD reagents. Performance characteristi cs have been verified by the Molecular Diagnostic Laboratory within the [facility]. The Molecular Diagnostic Laboratory is authorized under the Clinical Laboratory Improvement Amendment of 1988 (CLIA-88) to perform high complexity testing. CHEMISTRY Total CK 25 12 - 191 11/12 Normal [facility] CHEMISTRY Troponin-I <0.02 0.00 - 11/12 Normal [facility] 0.40 [facility] CHEMISTRY eGFR 88 11/12 NA <sup>8</sup>R esult [...] 13.7 10.0 - 03 Normal [place] 20.0 [facility] CHEMISTRY Calcium Lvl 8.5 8.5 - 10.5 11/12 Normal [facility] CHEMISTRY CO2 25 24 - 32 11/12 Normal [facility] CHEMISTRY Potassium Lvl 3.7 3.5 - 5.1 11/12 Normal [facility] CHEMISTRY Sodium Lvl 138 135 - 145 11/12 Normal [facility] CHEMISTRY Chloride Lvl 103 95 - 109 11/12 Normal [facility] CHEMISTRY Creatinine 0.8 0.5 - 1.4 11/12 Normal [facility] Lvl [facility] CHEMISTRY BUN 5 7 - 22 11/12 LOW [facility] CHEMISTRY Glucose Lvl 40 70 - 99 11/12 CRIT <sup>11</sup> Result Medical Comment: Center rechecked Critical Result(s) called to _Leo Rose at 11/12/2012 02:56:37 PHOTOSTAT OPERATOR by_mgm. Read back OK.
<sup> 12</sup>Inter pretive Data: Adult reference range values reflect the clinical guidelines
of the [place] [employer]. CHEMISTRY Ca Norm mgdL 4.20 4.65 - 03 [facility] [place] 5. [facility] CHEMISTRY Ca Norm 1.05 1.16 - 11/12 [facility] [place] 1.30 [facility] CHEMISTRY Ca Ion mgdL 4.00 4.65 - 09 LOW [place] 5. [facility] CHEMISTRY Ca Ion 1.00 1.16 - 0309 [facility] [place] 1.30 [facility] CHEMISTRY Magnesium Lvl 1.9 1.8 - 2.4 11/12 Normal [facility] CHEMISTRY Phosphorus 3.2 2.5 - 4.5 11/12 Normal [facility] HEMATOLOGY MCHC 32.0 32.0 - 03 Normal [place] 36.0 /2013 [facility] HEMATOLOGY MCH 24.1 27.0 - 0309 [facility] [place] 31.0 [facility] HEMATOLOGY MCV 75.3 81.0 - 03 LOW MH [place] 99.0 /2012 [facility] HEMATOLOGY WBC 9.2 3.7 - 10.4 03 Normal [facility] HEMATOLOGY Platelet 233 133 - 450 03 Normal [facility] HEMATOLOGY MPV 9.1 7.4 - 10.4 11/12 Normal [facility] HEMATOLOGY RDW 19.0 11.5 - 03/ HI [place] 14.5 /2012 [facility] HEMATOLOGY RBC 4.19 4.20 - 03 LOW [place] 5.40 /2012 [facility] HEMATOLOGY Hgb 10.1 12.0 - 03 LOW [place] 16.0 /2012 [facility] HEMATOLOGY Hct 31.6 36.0 - 03 LOW [place] 48.0 /2012 [facility] HEMATOLOGY Hypochrom Slight None Seen 11/12 Normal [facility] (11/12/2012 00:19:00) /2012 [facility] HEMATOLOGY Large Plt Slight None Seen 11/12 [facility] *ABN* /2012 Medical (11/12/2012 00:19:00) [place] HEMATOLOGY Atypical 0.0 <=0.0 11/12 Normal [facility] Lymphs [facility] HEMATOLOGY Basophils 1.0 0.0 - 1.0 11/12 Normal [facility] HEMATOLOGY Lymphocytes 39.0 20.0 - 03 [facility] 40.0 [facility] HEMATOLOGY Bands 0.0 0.0 - 11.0 11/12 Normal [facility] HEMATOLOGY Eosinophils 2.0 0.0 - 4.0 11/12 Normal [facility] HEMATOLOGY Monocytes 6.0 2.0 - 12.0 11/12 Normal [facility] HEMATOLOGY Segs 52.0 45.0 - 11/12 [facility] [place] 75.0 [facility] HEMATOLOGY Basophils # 0.1 0.0 - 0.2 11/12 Normal [facility] HEMATOLOGY Monocytes # 0.6 0.0 - 0.8 11/12 Normal [facility] HEMATOLOGY Lymphocytes # 3.6 1.0 - 5.5 11/12 Normal [facility] HEMATOLOGY Segs-Bands # 4.8 1.5 - 8.1 11/12 Normal [facility] HEMATOLOGY Eosinophils # 0.2 0.0 - 0.5 11/12 Normal [facility] HEMATOLOGY Microcyte 1+ None Seen 11/11 [facility] (11/11/2012 03:41:00) Center HEMATOLOGY Basophils # 0.1 0.0 - 0.2 11/11 Normal [facility] HEMATOLOGY Basophils 0.7 0.0 - 1.0 11/11 Normal [facility] HEMATOLOGY Microcyte 1+ None Seen 11/09 [facility] (11/09/2012 05:12:00) Center URINALYSIS UA pH 5.0 5.0 - 8.0 11/08 Normal [facility] URINALYSIS UA Protein 20 mg/dL Negative 11/08 [facility] (11/07/2012 20:54:00) Center URINALYSIS UA Turbidity Slight Clear 11/08 [facility] Medical (11/07/2012 20:54:00) Center URINALYSIS UA Spec Grav 1.010 <=1.030 11/08 Normal [facility]YSIS UA Color Yellow Yellow 11/08 [facility] 20:54:00[facility] Center URINALYSIS UA Bacteria Moderate /HPF None Seen 11/08 [facility] Medical (11/07/2012 20:54:00) Center URINALYSIS UA Mucus Few /LPF None [facility]2012 20:54:00[facility] Center URINALYSIS UA WBC >182 0 - 5 11/08 [facility] URINALYSIS UA RBC 4 0 - 2 11/08 [facility] URINALYSIS UA Sq Epi Moderate /LPF Few 11/08 [facility] (11/07/2012 20:54:00) Center URINALYSIS UA Leuk Est Large Negative 11/08 [facility] Medical (11/07/2012 20:54:00) Center URINALYSIS UA Blood Trace Negative 11/08 [facility] Medical (11/07/2012 20:54:00) Center URINALYSIS UA Nitrite Negative Negative 11/08 Normal [facility] (11/07/2012 20:54:00) [facility] URINALYSIS UA Ketones 40 mg/dL Negative 11/08 [facility] Medical (11/07/2012 20:54:00) Center URINALYSIS UA Bili Negative Negative 11/08 [facility] (11/07/2012 20:54:00) Center URINALYSIS Micro? Performed 11/08 [facility] (11/07/2012 20:54:00) Center URINALYSIS UA 0.1 - 1.0 11/08 [facility] Urobilinogen /2012 [facility] URINALYSIS UA Glucose >=1000mg/d 11/08 [facility] L [facility] URINALYSIS UA Hyal Cast 37 0 - 2 11/08 [facility] URINALYSIS UA Ketones 40 mg/dL Negative 11/07 [facility] Medical (11/07/2012 06:24:57) Center CHEMISTRY Hgb A1C [...] to lower CHEMISTRY Ketone 2.20 <=0.27 11/06 [facility] CHEMISTRY U Osmolality 207 300 - 800 11/06 LOW [facility] CHEMISTRY POC A %FIO2 21.0 18.0 - 11/06 Normal [facility] 100.0 [facility] CHEMISTRY POC A LA 0.9 0.5 - 2.2 11/06 Normal [facility] CHEMISTRY POC A Glu 281 70 - 99 11/06 [facility] CHEMISTRY POC A Temp 37.0 11/06 NA [facility] CHEMISTRY POC A Source ART 11/06 NA [facility] CHEMISTRY POC A pH 7.45 7.35 - 11/06 Normal [facility] 7.45 /2012 Medical [place] CHEMISTRY POC A HCO3 24 22 - 26 03 Normal [facility] CHEMISTRY POC A PCO2 35 35 - 45 03/ Normal [facility] CHEMISTRY POC A PO2 85 80 - 100 03 Normal [facility] CHEMISTRY POC A BE 0 -2-2 - 2 11/06 Normal [facility] CHEMISTRY POC A O2 Sat 97.0 95.0 - 11/06 Normal [place] 100.0 Medical Center CHEMISTRY POC A Na 123 135 - 145 11/06 LOW [facility] CHEMISTRY POC A Hct 31.0 36.0 - 11/06 LOW [place] 48.0 /2012 [facility] CHEMISTRY POC A Ca Ion 1.11 1.16 - 03 LOW [facility] 1.30 [facility] CHEMISTRY POC A K 3.7 3.5 - 5.1 11/06 Normal [facility] CHEMISTRY POC A BE -4 -2-2 - 2 11/06 LOW [facility] CHEMISTRY POC A HCO3 20 22 - 26 11/06 LOW [facility] CHEMISTRY POC A Source ART 11/06 NA [facility] CHEMISTRY POC A Temp 37.0 11/06 NA [facility] CHEMISTRY POC A pH 7.42 7.35 - 11/06 Normal [facility] 7.45 [facility] CHEMISTRY POC A PO2 81 80 - 100 11/06 Normal [facility] CHEMISTRY POC A O2 Sat 96.0 95.0 - 11/06 Normal 100.0 [facility] CHEMISTRY POC A PCO2 31 35 - 45 11/06 LOW [facility] CHEMISTRY POC A %FIO2 21.0 18.0 - 03 Normal [facility] 100.0 /2012 [facility] Microbiolog Culture: 11/06 [facility] y Urine /2012 [facility] CHEMISTRY Troponin-I <0.02 0.00 - 03 Normal [facility] 0.40 /2012 [facility] CHEMISTRY Troponin-T <0.010 0.000 - 03 Normal [facility] 0.100 [facility] CHEMISTRY Total CK 48 12 - 191 11/06 Normal [facility] URINALYSIS UA 0.1 - 1.0 11/06 NA [facility] Urobilinogen /2012 [facility] URINALYSIS UA Leuk Est Large Negative 11/06 ABN [facility] * Medical (11/06/2012 03:15:40) Center URINALYSIS UA Sq Epi Moderate /LPF Few 11/06 [facility] (11/06/2012 03:15:40) Center URINALYSIS UA Mucus Few /LPF None Seen 11/06 NA [facility] Medical (11/06/2012 03:15:40) Center URINALYSIS UA Nitrite Negative Negative 11/06 Normal [facility] (11/06/2012 03:15:40) Medical Center URINALYSIS UA Bacteria Occasional /HPF None Seen 11/06 [facility]11/06/2012 03:15:40) Center URINALYSIS UA WBC 67 0 - 5 11/06 [facility] URINALYSIS UA Blood Negative Negative 11/06 Normal [facility] (11/06/2012 03:15:40) Medical Center URINALYSIS UA Bili Negative Negative 11/06 [facility] Medical (11/06/2012 03:15:40) Center URINALYSIS UA Ketones 60 mg/dL Negative 11/06 [facility] (11/06/2012 03:15:40) Center URINALYSIS UA pH 5.0 5.0 - 8.0 11/06 Normal Medical Center URINALYSIS UA Glucose >=1000 mg/dL Negative 11/06 [facility] (11/06/2012 03:15:40) Center URINALYSIS UA Spec Grav 1.014 <=1.030 11/06 Normal [facility] URINALYSIS UA Protein Negative mg/dL Negative 11/06 Normal [facility] (11/06/2012 03:15:40) Medical Center URINALYSIS UA Turbidity Slight Clear 11/06 [facility] (11/06/2012 03:15:40) Center URINALYSIS UA Color Yellow Yellow 11/06 NA [facility] Medical (11/06/2012 03:15:40) Center CHEMISTRY Troponin-I 0.02 0.00 - 11/06 Normal [facility] 0.40 Medical Center CHEMISTRY Total CK 30 12 - 191 11/06 Normal [facility] CHEMISTRY Troponin-T <0.010 0.000 - 11/06 Normal [facility] 0.100 /2012 Medical [place] CHEMISTRY Ketone 3.00 <=0.27 11/06 HI [facility] Medical [place] CHEMISTRY Lipase Lvl 89 73 - 393 11/06 Normal [facility] CHEMISTRY Globulin 4.3 2.0 - 4.0 11/06 [facility] CHEMISTRY A/G Ratio 0.9 0.7 - 1.6 11/06 Normal [facility] CHEMISTRY B/C Ratio 7 6 - 25 11/06 Normal [facility] CHEMISTRY Albumin Lvl 3.7 3.5 - 5.0 11/06 Normal [facility] CHEMISTRY Total Protein 8.0 6.4 - 8.4 11/06 Normal [facility] CHEMISTRY ALT 62 0 - 65 11/06 Normal [facility] CHEMISTRY Alk Phos 119 39 - 136 11/06 Normal [facility] CHEMISTRY Bili Total 0.5 0.2 - 1.3 11/06 Normal [facility] CHEMISTRY AST 44 0 - 37 11/06 [facility] HEMATOLOGY Polychrom Slight None Seen 11/06 Normal [facility] (11/05/2012 20:40:00) Medical Center HEMATOLOGY Hypochrom Slight None Seen 11/06 Normal [facility] (11/05/2012 20:40:00) [facility] HEMATOLOGY Bands 1.0 0.0 - 11.0 11/06 Normal [facility] HEMATOLOGY Anisocyte 1+ None Seen 11/06 [facility] *ABN* Medical (11/05/2012 20:40:00) Center HEMATOLOGY Atypical 0.0 <=0.0 11/06 Normal [facility] Lymphs [facility] HEMATOLOGY Macrocyte 1+ None Seen 11/06 [facility] *ABN* Medical (11/05/2012 20:40:00) Center HEMATOLOGY Plt Morph Normal 11/06 Normal [facility] (11/05/2012 20:40:00) [facility] HEMATOLOGY INR 0.98 0.85 - 11/06 Normal <sup>16</sup> [facility] 1. Interpretive Medical Data: Center RECOMMENDED RANGES FOR PROTIME INR:
2.0-3.0 for most medical and surgical thromboemboli c states.
2.5-3.5 for artificial heart valves and recurrent embolism.<br/ >
INR SHOULD BE USED ONLY FOR PATIENTS ON STABLE ANTICOAGULANT THERAPY. HEMATOLOGY PT 13.2 12.0 - 03 Normal [facility] 14.7 /2012 Medical Center HEMATOLOGY PTT 26.4 22.9 - 03 Normal <sup>17</sup> [facility] 35.8 /2012 Interpretive Medical Data: Heparin Center Therapeutic Range: 57 - 92 Seconds BEDSIDE Gluc POC >400 70 - 99 11/01 CRIT <sup>3</sup>I [facility] nterpretive Medical TESTING Data: Center Upper Reportable Limit: 200 mg/dL. BEDSIDE Comment1 Notify 11/01 NA [facility] GLUCOSE MARTÍNEZ/ Medical TESTING Center BEDSIDE Gluc POC 237 70 - 99 10/31 HI <sup>4</sup>I [facility] nterpretive Medical TESTING Data: Center Upper Reportable Limit: 200 mg/dL. BEDSIDE Gluc POC 357 70 - 99 10/31 HI <sup>5</sup>I [facility] nterpretive Medical TESTING Data: Center Upper Reportable Limit: 200 mg/dL. BEDSIDE Comment1 Notify 10/31 NA Fei ROACH RN/ /2012 Medical TESTING Center CHEMISTRY Phosphorus 4.2 2.5 - 4.5 10/31 Normal [facility] CHEMISTRY Ca Norm mgdL 4.64 4.65 - 10/31 [facility] 5. [facility] CHEMISTRY Ca Ion mgdL 4.44 4.65 - 10/31 [facility] 5. [facility] CHEMISTRY Ca Norm 1.16 1.16 - 10/31 Normal [facility] 1.30 [facility] Center CHEMISTRY Ca Ion 1.11 1.16 - 10/31 LOW [facility] 1.30 [facility] CHEMISTRY AGAP 16.9 10.0 - 10/31 Normal [facility] 20.0 [facility] Center CHEMISTRY eGFR 67 10/31 NA <sup>7</sup>R [...] Creatinine 1.0 0.5 - 1.4 10/31 Normal [facility] CHEMISTRY Sodium Lvl 133 135 - 145 10/31 [facility] CHEMISTRY Calcium Lvl 8.3 8.5 - 10.5 10/31 [facility] CHEMISTRY Potassium Lvl 3.9 3.5 - 5.1 10/31 [facility] CHEMISTRY Chloride Lvl 94 95 - 109 10/31 [facility] CHEMISTRY CO2 26 24 - 32 10/31 [facility] CHEMISTRY BUN 8 7 - 22 10/31 [facility] CHEMISTRY Glucose Lvl 75 70 - 99 10/31 Normal <sup>10</sup> Interpretive Medical Data: Adult Center reference range values reflect the clinical guidelines
of the [place] [employer]. CHEMISTRY Magnesium Lvl 1.9 1.8 - 2.4 10/31 [facility] HEMATOLOGY MPV 9.4 7.4 - 10.4 10/31 [facility] HEMATOLOGY Hgb 9.7 12.0 - 10/31 [facility] 16.0 [facility] HEMATOLOGY RBC 4.06 4.20 - 10/31 [facility] 5.40 [facility] HEMATOLOGY MCV 74.3 81.0 - 10/31 [facility] 99.0 [facility] HEMATOLOGY Hct 30.2 36.0 - 10/31 [facility] [place] 48.0 [facility] HEMATOLOGY MCHC 32.2 32.0 - 10/31 [facility] [place] 36.0 Medical Center HEMATOLOGY MCH 23.9 27.0 - 10/31 LOW [place] 31.0 /2012 [facility] HEMATOLOGY Platelet 199 133 - 450 10/31 Normal [facility] HEMATOLOGY RDW 17.5 11.5 - 10/31 HI [facility] 14.5 [facility] HEMATOLOGY WBC 9.4 3.7 - 10.4 10/31 Normal [facility] HEMATOLOGY Lymphocytes # 2.7 1.0 - 5.5 10/31 Normal [facility] HEMATOLOGY Basophils 0.6 0.0 - 1.0 10/31 Normal [facility] HEMATOLOGY Segs-Bands # 5.2 1.5 - 8.1 10/31 Normal [facility] HEMATOLOGY Microcyte 1+ None Seen 10/31 [facility] *ABN* /2012 [facility] (10/31/2012 04:00:00) [place] HEMATOLOGY Monocytes # 1.1 0.0 - 0.8 10/31 [facility] HEMATOLOGY Eosinophils # 0.3 0.0 - 0.5 10/31 Normal [facility] HEMATOLOGY Basophils # 0.1 0.0 - 0.2 10/31 Normal [facility] HEMATOLOGY Segs 55.2 45.0 - 10/31 Normal [place] 75.0 [facility] HEMATOLOGY Monocytes 11.8 2.0 - 12.0 10/31 Normal [facility] HEMATOLOGY Lymphocytes 28.9 20.0 - 10/31 Normal [place] 40.0 [facility] HEMATOLOGY Eosinophils 3.5 0.0 - 4.0 10/31 Normal [facility] BEDSIDE Comment1 Notify 10/31 NA [facility] GLUCOSE RN/MD Medical TESTING Center CHEMISTRY Ca Norm mgdL 4.92 4.65 - 10/30 Normal [facility] 5. [facility] Center CHEMISTRY Ca Ion mgdL 4.76 4.65 - 10/30 Normal [facility] 5. [facility] CHEMISTRY Ca Norm 1.23 1.16 - 10/30 Normal [facility] 10.05 [facility] CHEMISTRY Ca Ion 1.19 1.16 - 10/30 Normal [facility] 10.05 [facility] CHEMISTRY Phosphorus 3.8 2.5 - 4.5 10/30 Normal [facility] CHEMISTRY Magnesium Lvl 1.9 1.8 - 2.4 10/30 Normal [facility] CHEMISTRY eGFR 88 10/30 NA <sup>8</sup>R esult [...] 99 10/30 Normal <sup>11</sup> Interpretive Medical Data: [facility] Center reference range values reflect the clinical guidelines
of the [place] [employer]. CHEMISTRY Creatinine 0.8 0.5 - 1.4 10/30 Normal [facility] CHEMISTRY BUN 6 7 - 22 10/30 [facility] CHEMISTRY Sodium Lvl 132 135 - 145 10/30 [facility] CHEMISTRY Calcium Lvl 8.5 8.5 - 10.5 10/30 Normal [facility] CHEMISTRY CO2 29 24 - 32 10/30 Normal [facility] CHEMISTRY Chloride Lvl 92 95 - 109 10/30 [facility] CHEMISTRY Potassium Lvl 3.8 3.5 - 5.1 10/30 Normal [facility] CHEMISTRY AGAP 14.8 10.0 - 10/30 [facility] 20. [facility] HEMATOLOGY Platelet 245 133 - 450 10/30 [facility] HEMATOLOGY MPV 9.4 7.4 - 10.4 10/30 [facility] HEMATOLOGY Hct 33.1 36.0 - 10/30 [facility] 48.0 [facility] HEMATOLOGY RBC 4.47 4.20 - 10/30 [facility] [place] 5.40 /2012 [facility] HEMATOLOGY WBC 11.0 3.7 - 10.4 10/30 [facility] HEMATOLOGY Hgb 10.6 12.0 - 10/30 [facility] [place] 16.0 /2012 [facility] HEMATOLOGY MCHC 31.9 32.0 - 02 [facility] [place] 36.0 /2012 [facility] HEMATOLOGY MCV 74.1 81.0 - 10/30 [facility] [place] 99.0 /2012 [facility] HEMATOLOGY MCH 23.7 27.0 - 02 [facility] [place] 31.0 /2012 [facility] HEMATOLOGY RDW 16.9 11.5 - 10/30 [facility] 14.5 /2012 [facility] HEMATOLOGY PTT 28.1 22.9 - 10/30 Normal <sup>25</sup> [facility] 35.8 /2012 Interpretive Medical Data: [facility] Center Therapeutic Range: 57 - 92 Seconds HEMATOLOGY PT 13.7 12.0 - 10/30 Normal [facility] 14.7 /2012 [facility] HEMATOLOGY INR 1.03 0.85 - 10/30 Normal <sup>22</sup> [facility] 1.17 Interpretive Medical Data: Center RECOMMENDED RANGES FOR PROTIME INR:
2.0-3.0 for most medical and surgical thromboemboli c states.
2.5-3.5 for artificial heart valves and recurrent embolism.<br/ >
INR SHOULD BE USED ONLY FOR PATIENTS ON STABLE ANTICOAGULANT THERAPY. HEMATOLOGY Segs-Bands # 7.5 1.5 - 8.1 10/30 [facility] HEMATOLOGY Basophils 0.4 0.0 - 1.0 10/30 [facility] HEMATOLOGY Monocytes # 1.1 0.0 - 0.8 10/30 [facility] HEMATOLOGY Lymphocytes # 2.1 1.0 - 5.5 10/30 [facility] HEMATOLOGY Microcyte 1+ None Seen 10/30 [facility] [place] *ABN* /2012 Medical (10/30/2012 00:20:00) [place] HEMATOLOGY Eosinophils # 0.2 0.0 - 0.5 10/30 [facility] HEMATOLOGY Segs 68.3 45.0 - 10/30 [facility] [place] 75.0 [facility] HEMATOLOGY Lymphocytes 18.9 20.0 - 10/30 LOW [facility] [place] 40.0 /2013 [facility] HEMATOLOGY Monocytes 10.3 2.0 - 12.0 10/30 Normal [facility] HEMATOLOGY Eosinophils 2.1 0.0 - 4.0 10/30 Normal [facility] CHEMISTRY Magnesium Lvl 2.1 1.8 - 2.4 10/29 Normal [facility] CHEMISTRY Phosphorus 4.1 2.5 - 4.5 10/29 Normal [facility] CHEMISTRY Ca Ion mgdL 3.96 4.65 - 10/29 [facility] 5. [facility] CHEMISTRY Ca Norm 1.01 1.16 - 10/29 [facility] 1. [facility] CHEMISTRY Ca Ion 0.99 1.16 - 10/29 [facility] 1. [facility] CHEMISTRY Ca Norm mgdL 4.04 4.65 - 10/29 [facility] 01.23 [facility] CHEMISTRY eGFR 104 10/29 NA <sup>9</sup>R esult [...] Creatinine 0.7 0.5 - 1.4 10/29 Normal [facility] CHEMISTRY BUN 3 7 - 22 10/29 LOW [facility] CHEMISTRY Calcium Lvl 8.9 8.5 - 10.5 10/29 Normal [facility] CHEMISTRY Glucose Lvl 90 70 - 99 10/29 Normal <sup>12</sup> Interpretive Medical Data: Adult Center reference range values reflect the clinical guidelines
of the [place] [employer]. CHEMISTRY Chloride Lvl 99 95 - 109 10/29 Normal [facility] CHEMISTRY Potassium Lvl 4.4 3.5 - 5.1 10/29 Normal Medical [facility] CHEMISTRY CO2 27 24 - 32 10/29 Normal [facility] CHEMISTRY Sodium Lvl 139 135 - 145 10/29 Normal [facility] CHEMISTRY AGAP 17.4 10.0 - 10/29 Normal [place] 20.0 /2012 [facility] HEMATOLOGY PTT 23.7 22.9 - 10/29 Normal <sup>26</sup> [place] 35.8 /2012 Interpretive Medical Data: Heparin Center Therapeutic Range: 57 - 92 Seconds HEMATOLOGY PT 13.4 12.0 - 10/29 Normal [place] 14.7 /2012 [facility] HEMATOLOGY INR 1.00 0.85 - 10/29 Normal <sup>23</sup> [facility] 1.17 /2012 Interpretive Medical Data: Center RECOMMENDED RANGES FOR PROTIME INR:
2.0-3.0 for most medical and surgical thromboemboli c states.
2.5-3.5 for artificial heart valves and recurrent embolism.<br/ >
INR SHOULD BE USED ONLY FOR PATIENTS ON STABLE ANTICOAGULANT THERAPY. HEMATOLOGY RDW 17.1 11.5 - 10/29 [facility] [place] 14.5 /2012 [facility] Center HEMATOLOGY MCH 23.8 27.0 - 10/29 LOW [place] 31.0 /2012 [facility] HEMATOLOGY MCHC 32.2 32.0 - 10/29 Normal [place] 36.0 /2012 [facility] HEMATOLOGY Hct 33.6 36.0 - 10/29 [facility] [place] 48.0 /2012 [facility] HEMATOLOGY MCV 74.0 81.0 - 10/29 [facility] [place] 99.0 /2012 [facility] HEMATOLOGY Platelet 233 133 - 450 10/29 Normal [facility] HEMATOLOGY MPV 9.9 7.4 - 10.4 10/29 Normal [facility] HEMATOLOGY RBC 4.54 4.20 - 10/29 Normal [place] 5.40 /2012 [facility] HEMATOLOGY Hgb 10.8 12.0 - 10/29 [facility] [place] 16.0 /2012 [facility] HEMATOLOGY WBC 9.7 3.7 - 10.4 02/23 Normal [facility] HEMATOLOGY Lymphocytes # 2.6 1.0 - 5.5 10/29 Normal [facility] HEMATOLOGY Basophils 0.7 0.0 - 1.0 10/29 Normal [facility] HEMATOLOGY Segs-Bands # 6.0 1.5 - 8.1 10/29 Normal [facility] HEMATOLOGY Monocytes # 0.7 0.0 - 0.8 10/29 Normal [facility] HEMATOLOGY Eosinophils # 0.3 0.0 - 0.5 10/29 Normal [facility] HEMATOLOGY Basophils # 0.1 0.0 - 0.2 10/29 Normal [facility] HEMATOLOGY Microcyte 1+ None Seen 10/29 [facility] *ABN* /2012 Medical (10/29/2012 00:56:00) [place] HEMATOLOGY Segs 61.5 45.0 - 10/29 Normal [facility] 75.0 [facility] HEMATOLOGY Lymphocytes 26.8 20.0 - 10/29 Normal [facility] 40.0 [facility] HEMATOLOGY Monocytes 7.6 2.0 - 12.0 10/29 Normal [facility] HEMATOLOGY Eosinophils 3.4 0.0 - 4.0 10/29 Normal [facility] CHEMISTRY Amylase Lvl 27 25 - 115 10/28 Normal [facility] CHEMISTRY Lipase Lvl 58 73 - 393 10/28 LOW [facility] CHEMISTRY Bili Indirect 0.2 0.0 - 1.0 10/28 Normal [facility] CHEMISTRY Globulin 3.4 2.0 - 4.0 10/28 Normal [facility] CHEMISTRY A/G Ratio 0.8 0.7 - 1.6 10/28 Normal [facility] CHEMISTRY AST 24 0 - 37 10/28 Normal [facility] CHEMISTRY Bili Total 0.3 0.2 - 1.3 10/28 Normal [facility] CHEMISTRY Total Protein 6.2 6.4 - 8.4 10/28 LOW [facility] CHEMISTRY ALT 23 0 - 65 10/28 Normal [facility] CHEMISTRY Albumin Lvl 2.8 3.5 - 5.0 10/28 LOW [facility] CHEMISTRY Alk Phos 85 39 - 136 10/28 Normal [facility] CHEMISTRY Bili Direct 0.1 0.0 - 0.3 10/28 Normal [facility] Center HEMATOLOGY PTT 23.9 22.9 - 10/28 Normal <sup>27</sup> [facility] 35.8 /2012 Interpretive Medical Data: Heparin Center Therapeutic Range: 57 - 92 Seconds HEMATOLOGY PT 13.5 12.0 - 10/28 Normal [facility] 14.7 /2012 [facility] Center HEMATOLOGY INR 1.01 0.85 - 10/28 Normal <sup>24</sup> [facility] 1.17 /2012 Interpretive Medical Data: Center RECOMMENDED RANGES FOR PROTIME INR:
2.0-3.0 for most medical and surgical thromboemboli c states.
2.5-3.5 for artificial heart valves and recurrent embolism.<br/ >
INR SHOULD BE USED ONLY FOR PATIENTS ON STABLE ANTICOAGULANT THERAPY. VIRAL - Influ B Negative 6 Negative 10/28 Normal <sup>6</sup>I [facility] SEROLOGY (10/27/2012 18:02:02) nterpretive Medical Data: [...] - Influ A Negative Negative 10/28 Normal [facility] SEROLOGY (10/27/2012 18:02:02) [facility] CHEMISTRY Vitamin D, 16 30 - 100 10/25 LOW <sup>13</sup> [facility] 25-OH, Interpretive Medical Data: Center Reference range is based on recommendatio ns in the Endocrine<br/ >Society Clinical Practice Guideline (J Clin Endocrinol Metab
201 1;[id number]) CHEMISTRY Hgb A1C 8.4 10/25 NA <sup>21</sup> [facility] Interpretive Medical Data: HbA1C% Center eAG(mg/dL) [...] LDL 87 0 - 129 10/25 Normal [facility] CHEMISTRY HDL 35 >=35 10/25 Normal [facility] CHEMISTRY Trig 101 0 - 200 10/25 Normal [facility] CHEMISTRY Chol 142 120 - 200 10/25 Normal [facility] CHEMISTRY CHD Risk 4.06 3.90 - 10/25 Normal [facility] 5.80 /2012 [facility] CHEMISTRY Troponin-I 5.43 0.00 - 10/25 CRIT <sup>18</sup> [facility] 0.40 Result Medical Comment: Center Critical Result(s) called to Jelani Rasmussen at 10/25/2012 00:47:48 PHOTOSTAT OPERATOR by . Read back OK. CHEMISTRY Troponin-T 0.693 0.000 - 10/25 CRIT <sup>15</sup> [facility] 0.100 Result Medical Comment: Center Critical Result(s) called to daisy otoole at 10/25/2012 01:18:09 PHOTOSTAT OPERATOR by tac. Read back OK. HEMATOLOGY Basophils # 0.2 0.0 - 0.2 10/25 Normal [facility] HEMATOLOGY Plt Morph Normal 10/25 Normal [facility] (10/25/2012 00:15:00) [facility] CHEMISTRY ALT 15 0 - 65 10/24 Normal [facility] CHEMISTRY Albumin Lvl 2.7 3.5 - 5.0 10/24 LOW [facility] CHEMISTRY Bili Total 0.5 0.2 - 1.3 10/24 Normal [facility] CHEMISTRY Alk Phos 83 39 - 136 10/24 Normal [facility] CHEMISTRY Bili Direct 0.2 0.0 - 0.3 10/24 Normal [facility] CHEMISTRY Total Protein 5.8 6.4 - 8.4 10/24 LOW [facility] CHEMISTRY AST 41 0 - 37 10/24 HI [facility] CHEMISTRY Bili Indirect 0.3 0.0 - 1.0 10/24 Normal [facility] CHEMISTRY Globulin 3.1 2.0 - 4.0 10/24 Normal [facility] CHEMISTRY A/G Ratio 0.9 0.7 - 1.6 10/24 Normal [facility] CHEMISTRY POC A Mode NC-3LPM 10/24 NA [facility] CHEMISTRY POC A HCO3 19 22 - 26 10/24 LOW [facility] CHEMISTRY POC A O2 Sat 98.0 95.0 - 10/24 Normal [place] 100.0 [facility] CHEMISTRY POC A BE -6 -2-2 - 2 10/24 LOW [facility] CHEMISTRY POC A PO2 103 80 - 100 10/24 HI [facility] CHEMISTRY POC A pH 7.35 7.35 - 10/24 LOW [facility] 7.45 [facility] CHEMISTRY POC A PCO2 34 35 - 45 10/24 LOW [facility] CHEMISTRY POC A Temp 37.0 10/24 NA [facility] CHEMISTRY POC A Source ART 10/24 NA [facility] CHEMISTRY Troponin-T 0.688 0.000 - 10/24 CRIT <sup>16</sup> [facility] 0.100 Result Medical Comment: Center Critical Result(s) called to Maribel Bustos at 10/24/2012 13:23:46 PHOTOSTAT OPERATOR by lwb . Read back OK. CHEMISTRY Troponin-I 7.61 0.00 - 10/24 CRIT <sup>19</sup> [facility] 0.40 /2012 Result Medical Comment: Center Critical Result(s) called to mariana bustos at 10/24/2012 13:37:22 CSTby_lss. Read back OK. CHEMISTRY Total CK 150 12 - 191 10/24 Normal [facility] CHEMISTRY Lactic Acid 0.7 0.5 - 2.2 10/24 Normal [facility] Lvl [facility] CHEMISTRY CK MB Index 11.0 0.0 - 2.5 10/24 HI [facility] CHEMISTRY CK MB 16.5 0.5 - 3.6 10/24 HI [facility] CHEMISTRY Troponin-T 0.750 0.000 - 10/24 CRIT <sup>17</sup> [facility] 0.100 Result Medical Comment: Center Critical Result(s) called to Lyn King at 10/24/2012 09:52:38 PHOTOSTAT OPERATOR by lwb . Read back OK. CHEMISTRY Troponin-I 7.60 0.00 - 10/24 CRIT <sup>20</sup> [place] 0.40 /2012 Result Medical Comment: Center Critical Result(s) called to romero beltre at _10/24/2012 09:50:18 PHOTOSTAT OPERATOR by_lss. Read back OK. CHEMISTRY Total CK 170 12 - 191 10/24 Normal <sup>14</sup> Result Medical Comment: Center Specimen Moderately Hemolyzed. CHEMISTRY CK MB Index 10.5 0.0 - 2.5 10/24 HI [facility] CHEMISTRY CK MB 17.8 0.5 - 3.6 10/24 HI [facility] CHEMISTRY Ketone 0.07 <=0.27 10/24 Normal [facility] CHEMISTRY Ketone 2.61 <=0.27 10/24 HI [facility] CHEMISTRY CK MB 30.9 0.5 - 3.6 10/24 HI [facility] CHEMISTRY CK MB Index 12.2 0.0 - 2.5 10/24 HI [facility] CHEMISTRY Total CK 254 12 - 191 10/24 HI [facility] CHEMISTRY Lactic Acid 0.6 0.5 - 2.2 10/24 Normal [facility] Lvl [facility] CHEMISTRY POC V O2 Sat 56.0 40.0 - 10/24 Normal [place] 70.0 [facility] CHEMISTRY POC V HCO3 22 22 - 26 10/24 Normal [facility] CHEMISTRY POC V PO2 32 20 - 49 10/24 Normal [facility] CHEMISTRY POC V BE -4 -2-2 - 2 10/24 LOW [facility] CHEMISTRY POC V PCO2 41 38 - 52 10/24 Normal [facility] CHEMISTRY POC V pH 7.33 7.28 - 10/24 Normal [place] 7.42 [facility] CHEMISTRY POC V Temp 37.0 10/24 NA [facility] CHEMISTRY POC V Source MARK 10/24 NA [facility] CHEMISTRY Ketone 0.93 <=0.27 10/24 HI [facility] Microbiolog Culture: 10/24 [facility] y [facility] Center CHEMISTRY Lactic Acid 0.6 0.5 - 2.2 10/23 Normal [facility] Lvl [facility] Microbiolog Culture: 10/23 [facility] y Blood Medical Center CHEMISTRY POC [...] PCO2 36 35 - 45 10/23 Normal [facility] CHEMISTRY POC A LA 0.6 0.5 - 2.2 10/23 Normal Medical [facility] CHEMISTRY POC A Ca Ion 1.20 1.16 - 10/23 Normal [place] 1.30 Medical Center CHEMISTRY POC A Na 133 135 - 145 10/23 LOW [facility] CHEMISTRY POC A K 3.8 3.5 - 5.1 10/23 Normal [facility] CHEMISTRY A/G Ratio 0.8 0.7 - 1.6 10/23 Normal [facility] CHEMISTRY AST 90 0 - 37 10/23 [facility] CHEMISTRY Globulin 3.9 2.0 - 4.0 10/23 Normal [facility] Center CHEMISTRY B/C Ratio 16 6 - 25 10/23 Normal Medical [facility] CHEMISTRY Total Protein 7.2 6.4 - 8.4 10/23 Normal [facility] Center CHEMISTRY Bili Total 0.5 0.2 - 1.3 10/23 Normal Medical [facility] CHEMISTRY Albumin Lvl 3.3 3.5 - 5.0 10/23 LOW [facility] CHEMISTRY Alk Phos 94 39 - 136 10/23 Normal [facility] CHEMISTRY ALT 23 0 - 65 10/23 [facility] CHEMISTRY Osmolality 292 280 - 300 10/23 Normal [facility] CHEMISTRY Myoglobin 128 25 - 72 10/23 [facility] Microbiolog Culture: 10/23 [facility] y [facility] Screen BACTERIAL - MRSA by PCR Positive 1, 2 10/23 ABN <sup>1</sup>R [facility] SEROLOGY *ABN* /2012 [facility] (10/23/2012 [...] the Molecular Diagnostic Laboratory within the [facility]. The Molecular Diagnostic Laboratory is authorized under the Clinical Laboratory Improvement Amendment of 1988 (CLIA-88) to perform high complexity testing. CHEMISTRY Osmolality 309 280 - 300 10/23 [facility] CHEMISTRY POC A Hct 37.0 36.0 - 10/23 [facility] 48.0 [facility] CHEMISTRY POC A Na 129 135 - 145 10/23 LOW [facility] CHEMISTRY POC A LA 1.0 0.5 - 2.2 10/23 [facility] CHEMISTRY POC A K 4.5 3.5 - 5.1 10/23 [facility] CHEMISTRY POC A Glu >425 70 - 99 10/23 [facility] CHEMISTRY POC A Ca Ion 1.18 1.16 - 10/23 [facility] 1.30 /2012 [facility] CHEMISTRY POC A PCO2 30 35 - 45 10/23 CRIT [facility] CHEMISTRY POC A PO2 123 80 - 100 10/23 [facility] CHEMISTRY POC A Temp 37.0 10/23 NA Medical Center CHEMISTRY POC A HCO3 14 22 - 26 10/23 LOW [facility] CHEMISTRY POC A Source ART 10/23 NA Medical [place] CHEMISTRY POC A pH 7.27 7.35 - 10/23 LOW [facility] 7.45 [facility] Center CHEMISTRY POC A BE -12 -2-2 - 2 10/23 LOW [facility] CHEMISTRY POC A O2 Sat 98.0 95.0 - 10/23 Normal [place] 100.0 [facility] Center CHEMISTRY Bili Direct 0.4 0.0 - 0.3 10/23 [facility] CHEMISTRY Lipase Lvl 54 73 - 393 10/23 LOW [facility] CHEMISTRY Amylase Lvl 28 25 - 115 10/23 Normal [facility] CHEMISTRY B/C Ratio 10 6 - 25 10/23 Normal [facility] Center BLOOD BANK Antibody Scrn Negative 10/23 Normal [facility] RESULTS (10/23/2012 01:00:00) Medical Center BLOOD BANK ABO/Rh A POS 10/23 Unknown [facility] RESULTS Medical Center URINALYSIS UA 0.1 - 1.0 10/23 NA [facility] Urobilinogen /2012 Medical Center URINALYSIS UA Sq Epi Moderate /LPF Few 10/23 ABN [facility] *ABN* Medical (10/23/2012 00:01:00) Center URINALYSIS UA Leuk Est Negative Negative 10/23 Normal [facility] (10/23/2012 00:01:00) Medical Center URINALYSIS UA Nitrite Negative Negative 10/23 Normal [facility] (10/23/2012 00:01:00) Medical Center URINALYSIS UA Blood Negative Negative 10/23 Normal [facility] (10/23/2012 00:01:00) Medical Center URINALYSIS UA Glucose >=1000 mg/dL Negative 10/23 ABN [facility] *ABN* Medical (10/23/2012 00:01:00) Center URINALYSIS UA Protein 10 mg/dL Negative 10/23 ABN [facility] *ABN* Medical (10/23/2012 00:01:00) Center URINALYSIS UA pH 5.0 5.0 - 8.0 10/23 Normal Medical Center URINALYSIS UA WBC 1 0 - 5 10/23 Normal [facility] Center URINALYSIS UA Bili Negative Negative 10/23 NA [facility] *NA* Medical (10/23/2012 00:01:00) Center URINALYSIS UA Ketones >=150 mg/dL Negative 10/23 ABN [facility] *ABN* Medical (10/23/2012 00:01:00) Center URINALYSIS UA Spec Grav 1.015 <=1.030 10/23 Normal [facility] Center URINALYSIS UA Turbidity Clear Clear 10/23 Normal [facility] (10/23/2012 00:01:00) [facility] Center URINALYSIS UA Color Light Yellow Yellow 10/23 NA [facility] *NA* Medical (10/23/2012 00:01:00) Center BEDSIDE Gluc POC 265 70 - 99 10/08 HI <sup>1</sup>I [facility] GLUCOSE [facility] nterpretive Medical TESTING Data: Center Upper Reportable Limit: 200 mg/dL. BEDSIDE Comment1 Notify 10/08 NA [facility] GLUCOSE RN/MD /2012 Medical TESTING Center BEDSIDE Comment1 Notify 10/08 NA [facility] GLUCOSE RN/MD /2012 Medical TESTING Center BEDSIDE Gluc POC 204 70 - 99 10/08 HI <sup>2</sup>I [facility] GLUCOSE [facility] nterpretive Medical TESTING Data: Center Upper Reportable Limit: 200 mg/dL. CHEMISTRY Phosphorus 2.7 2.5 - 4.5 10/08 Normal [facility] CHEMISTRY Magnesium Lvl 1.6 1.8 - 2.4 10/08 LOW [facility] CHEMISTRY Ca Ion 1.17 1.16 - 02 Normal [facility] 1. [facility] CHEMISTRY Ca Norm 1.18 1.16 - 02 Normal [facility] 1. [facility] CHEMISTRY Ca Ion mgdL 4.68 4.65 - 02 Normal [facility] 5. [facility] CHEMISTRY Ca Norm mgdL 4.72 4.65 - 10/08 Normal [facility] 5. [facility] CHEMISTRY AGAP 17.6 10.0 - 10/08 Normal [facility] 20.0 [facility] CHEMISTRY eGFR 109 10/08 NA [...] CO2 24 24 - 32 10/08 Normal [facility] CHEMISTRY Calcium Lvl 8.5 8.5 - 10.5 10/08 Normal [facility]2012 [facility] CHEMISTRY Potassium Lvl 3.6 3.5 - 5.1 10/08 Normal [facility]2012 [facility] CHEMISTRY Chloride Lvl 96 95 - 109 10/08 Normal [facility]2012 [facility] CHEMISTRY Creatinine 0.6 0.5 - 1.4 10/[address] [facility]2012 [facility] CHEMISTRY Sodium Lvl 134 135 - 145 10/08 LOW [facility]2012 [facility] CHEMISTRY Glucose Lvl 129 70 - 99 10/08 HI <sup>7</sup>I nterpretive Medical Data: Adult Center reference range values reflect the clinical guidelines
of the [place] [employer]. CHEMISTRY BUN 4 7 - 22 10/08 LOW [facility] HEMATOLOGY Monocytes # 1.1 0.0 - 0.8 10/08 HI [facility]2012 [facility] HEMATOLOGY Eosinophils # 0.3 0.0 - 0.5 10/08 Normal [facility]2012 [facility] HEMATOLOGY Basophils # 0.1 0.0 - 0.2 10/08 Normal [facility] HEMATOLOGY Microcyte 1+ None Seen 10/08 [facility] *ABN* /2012 Medical (10/08/2012 03:57:00) Center HEMATOLOGY Segs 55.7 45.0 - 10/08 Normal [facility] [place] 75.0 /2013 [facility] HEMATOLOGY Lymphocytes 31.3 20.0 - 02/ Normal [place] 40.0 /2012 [facility] HEMATOLOGY Monocytes 10.0 2.0 - 12.0 02/ Normal [facility] HEMATOLOGY Eosinophils 2.5 0.0 - 4.0 02/ Normal [facility] HEMATOLOGY Segs-Bands # 6.1 1.5 - 8.1 02/ Normal [facility] HEMATOLOGY Basophils 0.5 0.0 - 1.0 02/ Normal [facility] HEMATOLOGY Lymphocytes # 3.4 1.0 - 5.5 02/ Normal [facility] HEMATOLOGY RDW 16.9 11.5 - 02/ [facility] 14.5 /2012 [facility] HEMATOLOGY Platelet 218 133 - 450 02/ Normal /2012 [facility] HEMATOLOGY WBC 10.9 3.7 - 10.4 02/ [facility] HEMATOLOGY RBC 4.35 4.20 - 02 Normal [facility] 5.40 [facility] HEMATOLOGY MPV 9.7 7.4 - 10.4 02/ Normal [facility] HEMATOLOGY Hgb 10.4 12.0 - 02/ LOW [facility] 16.0 /2012 [facility] HEMATOLOGY Hct 32.7 36.0 - 02/ [facility] 48.0 /2012 [facility] HEMATOLOGY MCHC 31.8 32.0 - 02/ [facility] 36.0 /2012 [facility] HEMATOLOGY MCV 75.2 81.0 - 02/ [facility] 99.0 /2012 [facility] HEMATOLOGY MCH 23.9 27.0 - 02/ [facility] 31.0 /2012 [facility] BEDSIDE Comment1 Notify 10/08 NA [facility] GLUCOSE RN/MD /2012 Medical TESTING Center BEDSIDE Gluc POC 247 70 - 99 10/08 HI <sup>3</sup>I [facility] GLUCOSE [facility] /2012 nterpretive Medical TESTING Data: Center Upper Reportable Limit: 200 mg/dL. CHEMISTRY Magnesium Lvl 2.1 1.8 - 2.4 10/07 Normal [facility] CHEMISTRY Ca Norm 1.16 1.16 - 02 [facility] 1.30 [facility] CHEMISTRY Ca Ion mgdL 4.72 4.65 - 02 [facility] 5.20 /2012 [facility] CHEMISTRY Ca Norm mgdL 4.64 4.65 - 02 LOW [facility] 5.20 [facility] CHEMISTRY Ca Ion 1.18 1.16 - 02 Normal [facility] 1.30 [facility] CHEMISTRY Phosphorus 2.6 2.5 - 4.5 10/07 Normal [facility] CHEMISTRY Calcium Lvl 8.1 8.5 - 10.5 10/07 LOW [facility] CHEMISTRY AGAP 19.4 10.0 - 10/07 Normal [facility] 20.0 [facility] CHEMISTRY eGFR 116 10/07 NA <sup>5</sup>R esult [...] CHEMISTRY BUN 6 7 - 22 10/07 [facility] CHEMISTRY Glucose Lvl 99 70 - 99 10/07 Normal <sup>8</sup>I nterpretive Medical Data: Adult Center reference range values reflect the clinical guidelines
of the [place] [employer]. CHEMISTRY Creatinine 0.5 0.5 - 1.4 10/07 Normal [facility] Lvl [facility] CHEMISTRY Potassium Lvl 3.4 3.5 - 5.1 10/07 LOW [facility] CHEMISTRY Sodium Lvl 135 135 - 145 10/07 Normal [facility] CHEMISTRY CO2 24 24 - 32 10/07 Normal [facility] CHEMISTRY Chloride Lvl 95 95 - 109 10/07 Normal [facility] HEMATOLOGY MCHC 31.8 32.0 - 02/ [facility] [place] 36.0 /2012 [facility] HEMATOLOGY MCH 24.1 27.0 - 02 [facility] [place] 31.0 [facility] HEMATOLOGY MCV 75.7 81.0 - 02 [facility] [place] 99.0 /2012 [facility] HEMATOLOGY Hct 31.0 36.0 - 02/ [facility] [place] 48.0 /2012 [facility] HEMATOLOGY Hgb 9.9 12.0 - 02 [facility] [place] 16.0 /2012 [facility] HEMATOLOGY MPV 9.1 7.4 - 10.4 02 Normal [facility] HEMATOLOGY Platelet 222 133 - 450 02 Normal [facility] HEMATOLOGY RDW 16.8 11.5 - 10/07 [facility] 14.5 /2012 [facility] HEMATOLOGY RBC 4.10 4.20 - 10/07 [facility] [place] 5.40 /2012 [facility] HEMATOLOGY WBC 13.8 3.7 - 10.4 10/07 [facility] HEMATOLOGY Segs-Bands # 9.6 1.5 - 8.1 02 [facility] HEMATOLOGY Basophils 0.3 0.0 - 1.0 02 Normal [facility] HEMATOLOGY Eosinophils 1.0 0.0 - 4.0 10/07 Normal [facility] HEMATOLOGY Microcyte 1+ None Seen 10/07 [facility] *ABN* /2012 Medical (10/07/2012 03:25:00) [place] HEMATOLOGY Lymphocytes # 2.9 1.0 - 5.5 02 Normal [facility] HEMATOLOGY Eosinophils # 0.1 0.0 - 0.5 02 Normal [facility] HEMATOLOGY Monocytes # 1.2 0.0 - 0.8 02 [facility] HEMATOLOGY Monocytes 8.8 2.0 - 12.0 02 Normal [facility] HEMATOLOGY Lymphocytes 20.8 20.0 - 02 Normal [facility] 40.0 [facility] HEMATOLOGY Segs 69.1 45.0 - 10/07 Normal [place] 75.0 [facility] URINALYSIS UA Glucose 500mg/dL 10/06 NA [facility] URINALYSIS UA 0.1 - 1.0 10/06 [facility] Urobilinogen /2012 [facility] URINALYSIS Micro? Performed 10/06 NA [facility] *NA* Medical (10/06/2012 11:42:00) Center URINALYSIS UA [place] Yeast Moderate /HPF None [facility] 11:42:00[facility] Center URINALYSIS UA RBC 3 0 - 2 10/06 HI [facility] URINALYSIS UA Bacteria Many /HPF None [facility] 10/[facility] (10/06/2012 11:42:00) Center URINALYSIS UA WBC 3 0 - 5 10/06 Normal [facility] URINALYSIS UA Leuk Est Negative Negative 10/06 Normal [facility] (10/06/2012 11:42:00) Medical Center URINALYSIS UA Nitrite Negative Negative 10/06 Normal [facility] (10/06/2012 11:42:00) [facility] URINALYSIS UA Sq Epi Many /LPF Few 10/06 ABN [facility]* Medical (10/06/2012 11:42:00) Center URINALYSIS UA Bili Negative Negative [facility] 11:42:00[facility] Center URINALYSIS UA Blood Negative Negative 10/06 Normal [facility] (10/06/2012 11:42:00) [facility] URINALYSIS UA pH 5.5 5.0 - 8.0 10/06 Normal [facility] URINALYSIS UA Protein 20 mg/dL Negative 10/[facility] (10/06/2012 11:42:00) Center URINALYSIS UA Ketones >=150 mg/dL Negative 10/06 ABN [facility] Medical (10/06/2012 11:42:00) Center URINALYSIS UA Color Yellow Yellow 10/06 [facility]10/06/2012 11:42:00) Center URINALYSIS UA Turbidity Slight Clear 10/06 [facility] (10/06/2012 11:42:00) Center URINALYSIS UA Spec Grav 1.011 <=1.030 10/06 Normal [facility] URINALYSIS UA Mucus Few /LPF None Seen 10/06 NA [facility] *NA* /2012 Medical (10/06/2012 11:42:00) Center Microbiolog Culture: 10/06 [facility] y Urine [facility] CHEMISTRY Phosphorus 2.5 2.5 - 4.5 10/06 Normal [facility] CHEMISTRY Magnesium Lvl 1.5 1.8 - 2.4 10/06 LOW [facility] CHEMISTRY eGFR 76 10/06 NA <sup>6</sup>R esult [...] Lvl 3.9 3.5 - 5.1 10/06 Normal [facility] CHEMISTRY Chloride Lvl 97 95 - 109 10/06 Normal [facility] CHEMISTRY Calcium Lvl 8.3 8.5 - 10.5 10/06 LOW [facility] CHEMISTRY CO2 22 24 - 32 10/06 [facility] CHEMISTRY Glucose Lvl 234 70 - 99 10/06 HI <sup>9</sup>I nterpretive Medical Data: Adult Center reference range values reflect the clinical guidelines
of the [place] [employer]. CHEMISTRY Creatinine 0.9 0.5 - 1.4 10/06 Normal [facility] CHEMISTRY BUN 9 7 - 22 10/06 Normal [facility] CHEMISTRY Sodium Lvl 134 135 - 145 10/06 [facility] CHEMISTRY AGAP 18.9 10.0 - 10/06 Normal [place] 20.0 /2012 [facility] HEMATOLOGY Segs-Bands # 13.3 1.5 - 8.1 10/06 [facility] HEMATOLOGY Basophils 0.2 0.0 - 1.0 10/06 Normal [facility] HEMATOLOGY Eosinophils 0.1 0.0 - 4.0 10/06 Normal [facility] HEMATOLOGY Monocytes 6.7 2.0 - 12.0 10/06 Normal [facility] HEMATOLOGY Segs 81.7 45.0 - 10/06 [facility] [place] 75.0 /2012 Medical Center HEMATOLOGY Lymphocytes 11.3 20.0 - 10/06 LOW [place] 40.0 /2012 [facility] HEMATOLOGY Microcyte 1+ None Seen 10/06 [facility] [place] *ABN* /2012 Medical (10/06/2012 04:25:00) [place] HEMATOLOGY Monocytes # 1.1 0.0 - 0.8 10/06 [facility] HEMATOLOGY Lymphocytes # 1.8 1.0 - 5.5 10/06 Normal [facility] HEMATOLOGY RBC 4.28 4.20 - 10/06 Normal [place] 5.40 /2012 Medical Center HEMATOLOGY WBC 16.3 3.7 - 10.4 10/06 [facility] HEMATOLOGY Hgb 10.3 12.0 - 10/06 [facility] [place] 16.0 /2012 [facility] HEMATOLOGY Hct 32.6 36.0 - 10/06 [facility] [place] 48.0 /2012 Medical Center HEMATOLOGY MCH 24.0 27.0 - 10/06 [facility] [place] 31.0 /2012 [facility] HEMATOLOGY MCV 76.1 81.0 - 10/06 [facility] [place] 99.0 /2012 Medical Center HEMATOLOGY MCHC 31.5 32.0 - 10/06 [facility] [place] 36.0 /2012 [facility] HEMATOLOGY RDW 17.2 11.5 - 10/06 [facility] [place] 14.5 [facility] HEMATOLOGY Platelet 248 133 - 450 10/06 [facility] HEMATOLOGY MPV 9.5 7.4 - 10.4 10/06 [facility] CHEMISTRY Ca Norm 1.07 1.16 - 10/05 [facility] [place] 1.30 [facility] CHEMISTRY Ca Ion mgdL 4.36 4.65 - 10/05 [facility] [place] 5.20 [facility] CHEMISTRY Ca Norm mgdL 4.28 4.65 - 10/05 LOW [facility] 5.20 [facility] CHEMISTRY Ca Ion 1.09 1.16 - 10/05 LOW [facility] 1.30 [facility] HEMATOLOGY Basophils # 0.1 0.0 - 0.2 10/05 Normal [facility] HEMATOLOGY Eosinophils # 0.1 0.0 - 0.5 10/05 Normal [facility] CHEMISTRY U Preg Negative Negative 10/03 Normal [facility] (10/03/2012 06:31:00) [facility] BLOOD BANK ABO/Rh A POS 10/03 Unknown [facility] RESULTS /2012 [facility] BLOOD BANK Antibody Scrn Negative 10/03 Normal [facility] RESULTS (10/03/2012 06:00:00) [facility] CHEMISTRY Total Protein 7.8 6.4 - 8.4 09/23 Normal [facility] CHEMISTRY AST 31 0 - 37 09/23 Normal [facility] CHEMISTRY Bili Total 0.3 0.2 - 1.3 09/23 Normal [facility] CHEMISTRY ALT 50 0 - 65 09/23 Normal [facility] CHEMISTRY Albumin Lvl 3.6 3.5 - 5.0 09/23 Normal [facility] CHEMISTRY Alk Phos 150 39 - 136 09/23 HI [facility] CHEMISTRY B/C Ratio 21 6 - 25 09/23 Normal [facility] CHEMISTRY Globulin 4.2 2.0 - 4.0 09/23 HI [facility] CHEMISTRY A/G Ratio 0.9 0.7 - 1.6 09/23 Normal [facility] HEMATOLOGY Hypochrom Slight None Seen 09/23 Normal [facility] (09/23/2012 12:35:00) /2012 [facility] HEMATOLOGY Elliptocyte Slight None Seen 09/23 ABN [facility] *ABN* /2012 Medical (09/23/2012 12:35:00) Center HEMATOLOGY Basophils # 0.1 0.0 - 0.2 09/23 Normal [facility] HEMATOLOGY Plt Morph Normal 09/23 Normal [facility] (09/23/2012 12:35:00) [facility] URINALYSIS UA 0.1 - 1.0 09/23 NA [facility] Urobilinogen /2012 [facility] URINALYSIS UA Nitrite Negative Negative 09/23 Normal [facility] (09/23/2012 12:35:00) Medical Center URINALYSIS UA Blood Negative Negative 09/23 Normal [facility] (09/23/2012 12:35:00) Medical Center URINALYSIS UA Leuk Est Negative Negative 09/23 Normal [facility] (09/23/2012 12:35:00) Medical Center URINALYSIS Micro? Not Indicated 09/23 NA [facility] (09/23/2012 12:35:00) Center URINALYSIS UA Ketones Negative mg/dL Negative 09/23 NA [facility] * [facility] (09/23/2012 12:35:00) Center URINALYSIS UA Bili Negative Negative 09/23 [facility] (09/23/2012 12:35:00) Center URINALYSIS UA Protein Negative mg/dL Negative 09/23 Normal [facility] (09/23/2012 12:35:00) Medical Center URINALYSIS UA pH 5.0 5.0 - 8.0 09/23 Normal [facility] URINALYSIS UA Glucose Negative mg/dL Negative 09/23 NA [facility] * [facility] (09/23/2012 12:35:00) Center URINALYSIS UA Color Light Yellow Yellow 09/23 NA [facility] (09/23/2012 12:35:00) Center URINALYSIS UA Spec Grav 1.004 <=1.030 09/23 Normal [facility] URINALYSIS UA Turbidity Clear Clear 09/23 Normal [facility] (09/23/2012 12:35:00) Medical Center BEDSIDE Gluc POC 153 70 - 99 06/28 HI <sup>1</sup>I [facility] GLUCOSE [facility] nterpretive Medical TESTING Data: Center Upper Reportable Limit: 200 mg/dL. CHEMISTRY U Preg Negative Negative 06/28 Normal [facility] (06/28/2012 07:27:00) Medical Center Pathology Reports No Data Provided for This Section Diagnostic Reports Report Value Date Source Abdomen/Pelvis w EXAM: CT ABDOMEN WITH CONTRAST 07/12/2013 [facility] Medical contrast CT EXAM: CT PELVIS [...] views EXAM: XR ABDOMEN 1 VIEW 04/03/2013 [facility] DATE: March 25 90,013. INDICATION: Nausea. [...] 1view EXAM: XR CHEST 1 VIEW 04/02/2013 [facility] DATE: 2013-04-02 1638 hours INDICATION: Chest [...] Chest 1view EXAM: CHEST 1 VIEW 03/07/2013 [facility] DATE: Mar 07, 2013 07:45:00 AM [...] 2 views EXAM: CHEST 2 VIEWS 03/06/2013 [facility] DATE: Mar 06, 2013 06:47:00 PM [...] Comments Source Systolic (mm Hg) 124 08/13/2013 [facility] Respitory Rate 18 08/13/2013 [facility] Temperature Oral (F) 98.8 F 08/13/2013 [facility] Heart Rate 102 08/13/2013 [facility] Diastolic (mm Hg) 46 08/13/2013 [facility] Systolic (mm Hg) 107 08/13/2013 [facility] Respitory Rate 18 08/13/2013 [facility] Diastolic (mm Hg) 63 08/13/2013 [facility] Heart Rate 103 08/13/2013 [facility] Heart Rate 105 08/13/2013 [facility] Respitory Rate 18 08/13/2013 [facility] Systolic (mm Hg) 117 08/13/2013 [facility] Center Diastolic (mm Hg) 70 08/13/2013 [facility] Weight 81.818 08/13/2013 [facility] Height 162.56 cm 08/13/2013 [facility] Temperature Oral (F) 98.4 F 08/13/2013 [facility] Center Diastolic (mm Hg) 61 07/15/2013 [facility] Temperature Oral (F) 97.7 F 07/15/2013 [facility] Systolic (mm Hg) 117 07/15/2013 [facility] Respitory Rate 18 07/15/2013 [facility] Heart Rate 90 07/15/2013 [facility] Respitory Rate 18 07/14/2013 [facility] Heart Rate 104 07/14/2013 [facility] Diastolic (mm Hg) 46 07/14/2013 [facility] Systolic (mm Hg) 91 07/14/2013 [facility] Diastolic (mm Hg) 61 07/14/2013 [facility] Systolic (mm Hg) 95 07/14/2013 [facility] Respitory Rate 18 07/14/2013 [facility] Heart Rate 120 07/14/2013 [facility] Temperature Oral (F) 97.5 F 07/14/2013 [facility] Temperature Oral (F) 97.6 F 07/14/2013 [facility] Height 162.56 cm 07/12/2013 [facility] Weight 86.364 07/12/2013 [facility] Temperature Oral (F) 97.1 F 04/03/2013 [facility] Respitory Rate 18 04/03/2013 [facility] Heart Rate 79 04/03/2013 [facility] Diastolic (mm Hg) 66 04/03/2013 [facility] Systolic (mm Hg) 94 04/03/2013 [facility] Diastolic (mm Hg) 28 04/03/2013 [facility] Systolic (mm Hg) 116 04/03/2013 [facility] Respitory Rate 20 04/03/2013 [facility] Heart Rate 100 04/03/2013 [facility] Temperature Oral (F) 97.0 F 04/03/2013 [facility] Height 162.56 cm 04/03/2013 [facility] Weight 90 04/03/2013 [facility] Height 162.56 cm 04/02/2013 [facility] Weight 90 04/02/2013 [facility] Systolic (mm Hg) 132 03/09/2013 [facility] Diastolic (mm Hg) 72 03/09/2013 [facility] Heart Rate 114 03/09/2013 [facility] Temperature Oral (F) 97.7 F 03/09/2013 [facility] Respitory Rate 20 03/09/2013 [facility] Temperature Oral (F) 97.7 F 03/09/2013 [facility] Heart Rate 108 03/09/2013 [facility] Systolic (mm Hg) 143 03/09/2013 [facility] Respitory Rate 18 03/09/2013 [facility] Diastolic (mm Hg) 81 03/09/2013 [facility] Heart Rate 115 03/09/2013 [facility] Diastolic (mm Hg) 70 03/09/2013 [facility] Systolic (mm Hg) 153 03/09/2013 [facility] Respitory Rate 18 03/09/2013 [facility] Temperature Oral (F) 97.5 F 03/09/2013 [facility] Weight 90 03/07/2013 [facility] Height 162.56 cm 03/07/2013 [facility] Height 162.56 cm 03/06/2013 [facility] Weight 90 03/06/2013 [facility] Systolic (mm Hg) 127 12/07/2012 [facility] Diastolic (mm Hg) 49 12/07/2012 [facility] Heart Rate 90 12/07/2012 [facility] Temperature Oral (F) 98.3 F 12/07/2012 [facility] Respitory Rate 18 12/07/2012 [facility] Systolic (mm Hg) 104 12/07/2012 [facility] Temperature Oral (F) 98.6 F 12/07/2012 [facility] Respitory Rate 18 12/07/2012 [facility] Heart Rate 78 12/07/2012 [facility] Diastolic (mm Hg) 57 12/07/2012 [facility] Heart Rate 89 12/07/2012 [facility] Temperature Oral (F) 97.6 F 12/07/2012 [facility] Respitory Rate 18 12/07/2012 [facility] Systolic (mm Hg) 105 12/07/2012 [facility] Diastolic (mm Hg) 51 12/07/2012 [facility] Weight 100 11/29/2012 [facility] Height 162.56 cm 11/29/2012 [facility] Weight 100.568 11/29/2012 [facility] Height 162.56 cm 11/29/2012 [facility] Weight 101.364 11/28/2012 [facility] Height 162.56 cm 11/28/2012 [facility] Diastolic (mm Hg) 55 11/17/2012 [facility] Systolic (mm Hg) 117 11/17/2012 [facility] Diastolic (mm Hg) 70 11/17/2012 [facility] Systolic (mm Hg) 118 11/17/2012 [facility] Diastolic (mm Hg) 61 11/17/2012 [facility] Systolic (mm Hg) 154 11/17/2012 [facility] Temperature Oral (F) 97.8 F 11/17/2012 [facility] Temperature Oral (F) 97.9 F 11/17/2012 [facility] Temperature Oral (F) 98.6 F 11/17/2012 [facility] Height 162.56 cm 11/17/2012 [facility] Weight 103.21 11/17/2012 [facility] Respitory Rate 18 11/17/2012 [facility] Height 162.56 cm 11/16/2012 [facility] Weight 100 11/16/2012 [facility] Diastolic (mm Hg) 58 11/14/2012 [facility] Systolic (mm Hg) 121 11/14/2012 [facility] Respitory Rate 20 11/14/2012 [facility] Heart Rate 84 11/14/2012 [facility] Temperature Oral (F) 98.0 F 11/14/2012 [facility] Respitory Rate 20 11/14/2012 [facility] Systolic (mm Hg) 103 11/14/2012 [facility] Diastolic (mm Hg) 54 11/14/2012 [facility] Temperature Oral (F) 98.0 F 11/14/2012 [facility] Heart Rate 83 11/14/2012 [facility] Diastolic (mm Hg) 68 11/14/2012 [facility] Respitory Rate 20 11/14/2012 [facility] Heart Rate 79 11/14/2012 [facility] Systolic (mm Hg) 136 11/14/2012 [facility] Temperature Oral (F) 98.4 F 11/14/2012 [facility] Height 162.56 cm 11/06/2012 [facility] Weight 100 11/06/2012 [facility] Height 162.56 cm 11/06/2012 [facility] Weight 100 11/06/2012 [facility] Height 162.56 cm 11/06/2012 [facility] Weight 104.545 11/06/2012 [facility] Systolic (mm Hg) 131 11/01/2012 [facility] Diastolic (mm Hg) 62 11/01/2012 [facility] Systolic (mm Hg) 125 11/01/2012 [facility] Diastolic (mm Hg) 62 11/01/2012 [facility] Systolic (mm Hg) 155 10/31/2012 [facility] Diastolic (mm Hg) 54 10/31/2012 [facility] Temperature Oral (F) 99.7 F 10/31/2012 [facility] [facility] Oral (F) 96.7 F 10/31/2012 [facility] Temperature Oral (F) 98.1 F 10/31/2012 [facility] Respitory Rate 19 10/31/2012 [facility] Respitory Rate 19 10/31/2012 [facility] Respitory Rate 19 10/31/2012 [facility] Weight 78.2 10/24/2012 [facility] Heart Rate 126 10/23/2012 [facility] Heart Rate 130 10/23/2012 [facility] Weight 113.636 10/23/2012 [facility] Height 162.56 cm 10/23/2012 [facility] Heart Rate 119 10/23/2012 [facility] Height 162.56 cm 10/23/2012 [facility] Systolic (mm Hg) 123 10/08/2012 [facility] Respitory Rate 19 10/08/2012 [facility] Diastolic (mm Hg) 51 10/08/2012 [facility] Heart Rate 81 10/08/2012 [facility] Temperature Oral (F) 98.8 F 10/08/2012 [facility] Diastolic (mm Hg) 55 10/08/2012 [facility] Respitory Rate 20 10/08/2012 [facility] Systolic (mm Hg) 136 10/08/2012 [facility] Heart Rate 82 10/08/2012 [facility] Temperature Oral (F) 98.9 F 10/08/2012 [facility] Diastolic (mm Hg) 47 10/08/2012 [facility] Systolic (mm Hg) 107 10/08/2012 [facility] Temperature Oral (F) 98.1 F 10/08/2012 [facility] Respitory Rate 18 10/08/2012 [facility] Heart Rate 75 10/08/2012 [facility] Weight 118.200 10/03/2012 [facility] Height 162.56 cm 10/03/2012 [facility] Weight 118.182 09/23/2012 [facility] Height 162.56 cm 09/23/2012 [facility] Diastolic (mm Hg) 57 06/28/2012 [facility] Heart Rate 104 06/28/2012 [facility] Respitory Rate 18 06/28/2012 [facility] Systolic (mm Hg) 147 06/28/2012 [facility] Systolic (mm Hg) 153 06/28/2012 [facility] Diastolic (mm Hg) 61 06/28/2012 [facility] Respitory Rate 16 06/28/2012 [facility] Systolic (mm Hg) 136 06/28/2012 [facility] Diastolic (mm Hg) 52 06/28/2012 [facility] Respitory Rate 18 06/28/2012 [facility] Temperature Oral (F) 98.5 F 06/28/2012 [facility] Heart Rate 104 06/28/2012 [facility] Weight 118.182 06/14/2012 [facility] Height 162.56 cm 06/14/2012 [facility] Encounters Location Location Encounter Encounter Reason Attending ADM DC Status Source Details Type Number For Provider Date Date Visit [facility] DS [id number] DSU/ WOLFGANG 06/28 Active [facility] REFLUX SUSHILA /2011 Medical [facility] Inpatient [id number] WOLFGANG 10/03 10/08 Discharg [facility] /2012 ed Medical [facility] Inpatient [id number] N/V DARELL 10/23 11/01 Active [facility] DEHYDRAT SDRINGOLA- /2012 Medical [place] ION MARANGA [facility] Inpatient [id number] LAVONE 11/05 11/14 Discharg [facility] ROSE /2012 ed Medical [facility] OU [id number] CHIP 11/16 11/17 Discharg [facility] MARKUS /2012 ed [facility] Center [facility] Inpatient [id number] JUAN J 11/29 12/07 Discharg [facility] BRANDO /2012 ed Medical [facility] OU [id number] SANJUANA 03/07 03/09 Discharg [facility] OSUAGWU /2012 ed Medical Center [facility] OU [id number] JEANNIE 04/02 04/03 Discharg [facility] ADOLFO /2012 ed Medical [facility] OU [id number] GASTROPA JEANNIE 07/12 07/14 Active [facility] ADOLFO /2012 Medical [facility] JACKIE [id number] WOLFGANG 07/26 07/27 Discharg [facility] SUSHILA /2012 ed [facility] Center [facility] Emergency [id number] KATELYN 08/13 08/13 Discharg [facility] BUBLEWICZ /2012 ed Medical Center [facility] Outpatient [id number] SERGO [place]FIELD Cancel [facility] Procedures Procedure Code Date Perfomer Comments Source section [id number] [facility] Cholecystectomy [id number] [facility] <sup>1</sup> [facility] Hand repair [id number] 71381, x'2 [facility] <sup>2</sup> [facility] Tonsillectomy [id number] 69680 [facility] <sup>3</sup> [facility] Bypass of stomach [id number] [facility] Rotator cuff repair [id number] [facility] Heart procedure [id number] 1cardiac [facility] <sup>1</sup> stent for [facility] [...]
--- OUTSIDE RECORDS SUMMARY | 2019-04-23 03:19 | XMS REPORT | CCD ---
:1965 Author Organization [facility] Care Team Providers Name Role Phone Sukhwinder Renteria Referring Provider Allergies, Adverse Reactions, Alerts Substance Reaction Status NKDA Active Problem List Condition Effective Dates Status Acid reflux Resolved Anemia Resolved Anxiety Resolved Arthritis Resolved Depression Resolved Diabetes mellitus type 1 Resolved Edema of lower extremity Resolved Fibromyalgia Resolved Hyperlipidemia Resolved Hypertension Resolved Medications Medication Instructions Start Date End Date Status [place] 325 mg-10 mg / 15 mL, Route: [...] Duration: 30 day, Stop date: 11/02/12 10:59:00 [place] 325 mg-10 mg / 30 mL, Route: PO, 10/04/2012 10/05/2012 Discontinued 15 mL oral solution Drug Form: SOLN, Dosing Weight 118.2, kg, Q4H, PRN Pain Score 6-10, Start date: 10/04/12 17:20:00, Duration: 30 day, Stop date: 11/03/12 17:19:00 [place] 325 mg-10 mg / 15 mL, Route: [...] 14:28:00, PRN Blood Glucose Results Blistex Lip [place] Route: TOP, Dosing 10/06/2012 10/06/2012 Deleted Weight [...] /LPF] Few /LPF *NA* (10/06/2012 11:42:00) UA [place] Yeast [None Seen /HPF] Moderate /HPF *ABN* [...] the clinical guidelines of the [place] [employer].8Interpretive Data: Adult reference range values reflect the clinical guidelines of the [place] [employer].9Interpretive Data: Adult reference range values reflect the clinical guidelines of the [place] [employer].HEMATOLOGY Most recent to oldest 1 [...] Catch FREE TEXT SOURCE: FINAL REPORTS Final [place]23,000 - 50,000 CFU/mL Enterococcus SpeciesPRELIMINARY REPORTS Preliminary Bvytjh93,000 - 50,000 CFU/ mL Enterococcus Species ; Sensitivity PendingSUSCEPTIBILITY REPORT ENTERO Antibiotic INTERP. VDIL Ampicillin S Levofloxacin S Nitrofurantoin S Tetracycline R Vancomycin S Procedures Procedures Date Related Diagnosis section Cholecystectomy 1 Hand repair 2 Tonsillectomy 3 , [id number]
--- OUTSIDE RECORDS SUMMARY | 2019-04-23 03:20 | XMS REPORT | CCD ---
:1965 Author Organization [facility] Care Team Providers Name Role Phone Milton Arabella Ruelas Consulting Provider Ezio Sifuentes Consulting Provider Allergies, Adverse Reactions, Alerts Substance Reaction Status NKDA Active Problem List Condition Effective Dates Status Acid reflux Resolved Anemia Resolved Anxiety Resolved Arthritis Resolved Depression Resolved Diabetes mellitus type 1 Resolved Edema of lower extremity Resolved Fibromyalgia Resolved Hyperlipidemia Resolved Hypertension Resolved MRSA1, 2 10/23/2012 Active 1nares 10/23/201278304Gnirliz added by Discern Expert. Medications Medication Instructions [...] Duration: 30 day, Stop date: 12/06/12 1:48:00 [place] 5/325 oral tablet 1 tab, PO, Q6H, [...] Duration: 30 day, Stop date: 12/08/12 10:44:00 [place] 5/325 oral tablet 1 tab, Route: PO, [...] INJ, Q2H, Dosing Weight 100, kg, Total xupn=4015 mg, Start date: 11/14/12 8:00:00, Duration: 2 [...] 11/08/2012 11/08/2012 Canceled PO, Drug form: TAB, PMSR52M, Dosing Weight 100, kg, Start date: 11/08/12 [...] [Negative] Negative 1 (11/12/2012 21:54:26) 1Interpretive Data: [employer] Clostridium difficile assay utilizes loop-mediated isothermalDNA amplification (LAMP) technology to detect a 204 bp region of the tcdA gene within the PaLoc genesegment present in all known toxigenic C. difficile strains. The assay utilizes FDA cleared IVD reagents. Performance characteristics have been verified by the Molecular Diagnostic Laboratory within the [facility]. The Molecular Diagnostic Laboratory is [...] values reflect the clinical guidelines of the [place] Diabetes [employer].10Interpretive Data: Adult reference range values reflect the clinical guidelines of the [place] [employer].11Result Comment: rechecked Critical Result (s) called leslie Conner Rose at 11/12/2012 02:56:37 BRUSH WASHER by_mgm. Read back OK.12Interpretive Data: Adult reference range values reflect the clinical guidelines of the [place] [employer].13Result Comment: Critical Result(s) called to [...] 10.0 240 Poor Control, take action to upgca93Snvbfi Comment : Critical Result(s) called leslie Rose [...] Catch FREE TEXT SOURCE: FINAL REPORTS Final [place]23,000 - 100,000 CFU/mL Enterococcus SpeciesPRELIMINARY REPORTS Preliminary Dqujtf64,000 - 100,000 CFU/ mL Enterococcus Species Identification And Sensitivity PendingSUSCEPTIBILITY REPORT ENTERO Antibiotic INTERP. VDIL Ampicillin S Levofloxacin S Nitrofurantoin S Tetracycline R Vancomycin S
--- OUTSIDE RECORDS SUMMARY | 2019-04-23 03:21 | XMS REPORT | CCD ---
[...] Hypertension Resolved MRSA1, 2 10/23/2012 Active 1nares 10/23/201203384Oqnhnot added by Discern Expert. Medications Medication Instructions [...] mg, 1 supp, 10/23/2012 11/01/2012 Discontinued Route: DC, Drug form: SUPP, Q6H, Dosing Weight 113.636, kg, PRN Fever, Start date: 10/23/12 0:37:00, Duration: 30 day, Stop date: 11/22/12 0:36:00 Visipaque 320mg/ml 126 mL, Route: IVP, Drug Form: SOLN, Dosing Weight 113.636 , kg, ONCALL, STAT, Start date: 10/23/12 16:52:00, Duration: 1 doses or times, Dose=2.2ml/kg, Max vdcb=870sc -- "To be infused by Radiology Staff ONLY" 10/2310/23/2012 Completed Dose=2.2ml/kg, Max fkwl=530ne -- "To be infused by Radiology Staff [...] mg, 1 supp, 10/24/2012 10/24/2012 Deleted Route: DC, Drug form: SUPP, ONCE, Dosing Weight 78.2, [...] Duration: 1 doses or times, Dose=2.2ml/kg, Max jtsr=255ke -- "To be infused by Radiology Staff ONLY" 10/2310/23/2012 Completed Dose=2.2ml/kg, Max smhm=717ju -- "To be infused by Radiology Staff [...] Molecular Diagnostic Laboratory within the [facility]. The Molecular Diagnostic Laboratory is authorized under [...] values reflect the clinical guidelines of the [place] Diabetes [employer].11Interpretive Data: Adult reference range values reflect the clinical guidelines of the [place] [employer].12Interpretive Data: Adult reference range values reflect the clinical guidelines of the [place] [employer].13Interpretive Data: Reference range is based on recommendations in the Endocrine Society Clinical Practice Guideline (J Clin Endocrinol Metab 2011;96:8688-5540)14Result Comment: Specimen Moderately Hemolyzed.15Result Comment: Critical Result(s) called to daisy otoole at 10/25/2012 01:18:09 AERONAUTICAL PROJECT ENGINEER by tac. Read back OK.16Result Comment: Critical Result(s) called to Maribel Bustos at 10/24/2012 13:23:46 AERONAUTICAL PROJECT ENGINEER by lwb . Readback OK.17Result Comment: Critical Result(s) called to Lyn King at 10/24/2012 09:52:38 AERONAUTICAL PROJECT ENGINEER by lwb . Read back OK.18Result Comment: Critical Result(s) called to Jelani Rasmussen at 10/25/2012 00: 47:48 AERONAUTICAL PROJECT ENGINEER by RM. Read back OK.19Result Comment: Critical Result(s) called to mariana bustos at _ 10/24/2012 13:37:22 CSTby_lss. Readback OK.20Result Comment : Critical Result(s) called to romero beltre at _10/24/2012 09:50:18 AERONAUTICAL PROJECT ENGINEER by_lss. Read back OK.21Interpretive Data: HbA1C% eAG(mg/dL) [...] Data: Heparin Therapeutic Range: 57 - 92 Twxogoq95Wrrgibjclfow Data: Heparin Therapeutic Range: 57 - 92 Pvkrizs90Cduwbnvqvzbi Data: Heparin Therapeutic Range: 57 - 92 Seconds Microbiology Reports PROCEDURE:Culture: Urine STATUS: Auth (Verified) BODY SITE: COLLECTED DATE/TIME: 10/23/2012 20:33:00 SOURCE: Urine,Straight Cath FREE TEXT SOURCE: FINAL REPORTS Final Xdmotg26,000 - 100,000 CFU/mL Gram Negative Rods , Lactose Fermenters , 2 [place] Types 50,000 - 100,000 CFU/mL Enterococcus Species [...]
--- OUTSIDE RECORDS SUMMARY | 2019-04-23 03:21 | XMS REPORT | CCD ---
:1965 Author Organization [facility] Care Team Providers Name Role Phone Emeli Clark Consulting Provider Allergies, Adverse Reactions, Alerts Substance Reaction Status NKDA Active Problem List Condition Effective Dates Status Acid reflux Resolved Anemia Resolved Anxiety Resolved Arthritis Resolved Depression Resolved Diabetes mellitus type 1 Resolved Edema of lower extremity Resolved Fibromyalgia Resolved Hyperlipidemia Resolved Hypertension Resolved MRSA1, 2 10/23/2012 Active 1nares 10/23/201226124Vwrcanm added by Discern Expert. Medications Medication Instructions [...] 1 doses or times, Dose= 2.2ml/kg, Max lvtg=561rj -- "To be infused by Radiology Staff ONLY" 201211/16/2012 Discontinued Dose=2.2ml/kg, Max fquv=822yi -- "To be infused by Radiology Staff ONLY" calcium gluconate + Sodium 2,000 mg, 20 mL, Route: 11/17/2012 11/17/2012 Completed Chloride 0.9% IV 80 mL IVPB, ONCE, Dosing Weight 103.21, kg, Start date: 11/17/12 11:02:00, Stop date: 11/17/12 11:02:00 enoxaparin 40 mg, 0.4 mL, Route: 11/16/2012 11/17/2012 Discontinued SUB-Q, Drug form: INJ, eamiT43M, Dosing Weight 100, kg, Start date: 11/16/12 [...] date: 11/16/12 13:40:00, Stop date: 11/16/12 13:40:00 [place] 5/325 oral tablet 1 tab, Route: PO, [...] values reflect the clinical guidelines of the [place] Diabetes [employer].7Interpretive Data: Adult reference range values reflect the clinical guidelines of the [place] Diabetes [employer].HEMATOLOGY Most recent to oldest [Reference [...]
--- OUTSIDE RECORDS SUMMARY | 2019-04-23 03:22 | XMS REPORT | CCD ---
:1965 Author Organization [facility] Care Team Providers Name Role Phone JohnbeckiReno [...] 10/23/2012 Active Neuropathy Resolved - Nares/ - Mnqvq8jqowx 10/23/201214377Crbvmlk added by Discern Expert. Medications Medication Instructions [...] 03/08/13 3:17:00, Stop date: 03/08/13 3:17:00 lidocaine-epi 1%-1:626482 1 ml, Route: SUB-Q, Drug 03/07/2013 03/07/2013 [...] date: 03/07/13 2:35:00, Stop date: 03/07/13 2:35:00 [place] 5/325 oral tablet 1 tab, PO, Q6H, [...] Results BEDSIDE GLUCOSE TESTING Most recent to [facility] 1 2 3 [Reference Range]: [...] Reportable Limit: 200 mg/dL.URINALYSIS Most recent to [facility] [Reference Range]: 1 2 3 [...] the clinical guidelines of the [place] Diabetes Association.8Interpretive Data: Adult reference range values reflect the clinical guidelines of the [place] Diabetes [employer].9Interpretive Data: Adult reference range values reflect the clinical guidelines of the [place] Diabetes Association.HEMATOLOGY Most recent to oldest 1 [...]
--- OUTSIDE RECORDS SUMMARY | 2019-04-23 03:22 | XMS REPORT | CCD ---
:1965 Author Organization [facility] Care Team Providers Name Role Phone Marcela Michaelsbhumika [place] Consulting Provider Alberto Mata Consulting Provider Allergies, Adverse Reactions, Alerts Substance Reaction Status NKDA Active Problem List Condition Effective Dates Status Acid reflux Resolved Anemia Resolved Anxiety Resolved Arthritis Resolved Depression Resolved Diabetes mellitus type 1 Resolved Edema of lower extremity Resolved Fibromyalgia Resolved Hyperlipidemia Resolved Hypertension Resolved PR - Myocardial infarction 10/22/2012 Resolved MRSA1, 2, 3, 4 10/23/2012 Active Neuropathy Resolved - Nares - Hxvwc9mlwyl 10/23/201282452Dbqjmwo added by Discern Expert. Medications Medication Instructions [...] IVPB, Drug 12/02/2012 12/02/2012 Discontinued form: PDR/INJ, FQHZ30N, Dosing Weight 100, kg, Start date: 12/02/12 [...] 11/29/2012 11/29/2012 Discontinued SUB-Q, Drug form: INJ, nsnjL04T, Dosing Weight 101.364, kg, Start date: 11/29/12 [...] date: 12/04/12 23:39:00, Stop date: 12/04/12 23:39:00 [place] 7.5/325 oral tablet 1 tab, Route: PO, [...] IVPB, Drug 11/29/2012 12/01/2012 Discontinued form: PDR/INJ, ZQMR90K, Dosing Weight 100, kg, Start date: 11/29/12 [...] the Molecular Diagnostic Laboratory within the [facility]. The Molecular Diagnostic Laboratory is [...] values reflect the clinical guidelines of the [place] Diabetes [employer].11Interpretive Data: Adult reference range values reflect the clinical guidelines of the [place] [employer].12Interpretive Data: Adult reference range values reflect the clinical guidelines of the [place] [employer].13Interpretive Data: No established reference ranges.14Interpretive [...] Data: Heparin Therapeutic Range: 57 - 92 Khlrypd83Wkgddeodkxbl Data: Heparin Therapeutic Range: 57 - 92 [...] Catch FREE TEXT SOURCE: FINAL REPORTS Final Xbrexn63,000 - 50,000 CFU/mL Yeast <10,000 CFU/mL Skin EsPRELIMINARY REPORTS Preliminary ReportNo Growth; Holding Procedures Procedures Date Related Diagnosis Heart procedure 1 1cardiac stent for PR
--- OUTSIDE RECORDS SUMMARY | 2019-04-23 03:23 | XMS REPORT | CCD ---
[...] 10/23/2012 Active Neuropathy Resolved - Nares - Whqln1esfnb 10/23/201245966Rrfvupf added by Discern Expert. Medications Medication Instructions [...]
--- OUTSIDE RECORDS SUMMARY | 2019-04-23 03:23 | XMS REPORT | CCD ---
:1965 Author Organization [facility] Care Team Providers Name Role Phone Alberto [...] 10/23/2012 Active Neuropathy Resolved - Nares - Zjplb1valng 10/23/201221046Zfheejj added by Discern Expert. Medications Medication Instructions Start Date End Date Status acetaminophen-hydrocod 1 tab, Route: PO, Drug Form: 07/12/2013 07/14/2013 Discontinued one 325 mg-5 mg oral TAB, Dosing Weight 86.364, tablet kg, Q4H, PRN Pain, Start date: 07/12/13 18:23:00, Duration: 30 day, Stop date: 08/11/13 18:22:00(Same as: [place] 325/5) Do not exceed 4gm/day of acetaminophen. [...] 1 doses or times, Dose =2.2ml/kg, Max rbdd=393xx -- "To be infused by Radiology Staff ONLY" 201207/12/2013 Completed Dose=2.2ml/kg, Max krac=626kn -- "To be infused by Radiology Staff [...] day, Stop date: 08/11/13 9:00:00(Same as: Lopressor) [place] 5/325 oral 1 tab, Route: PO, Dosing [...] date: 08/11/13 9:00:00(Same as: Mag-Ox 400)Magnesium oxide 493zk=021ih elemental magnesiumDose=____mg magnesium oxide (___mg elemental magnesium) [...] [Negative] Negative 1 (07/13/2013 00:00:59) 1Interpretive Data: [employer] illum[employer]ene Clostridium difficile assay utilizes loop-mediated isothermalDNA amplification (LAMP) technology to detect a 204 bp region of the tcdA gene within the PaLoc genesegment present in all known toxigenic C. difficile strains. The assay utilizes FDA cleared IVD reagents. Performance characteristics have been verified by the Molecular Diagnostic Laboratory within the [facility]. The Molecular Diagnostic Laboratory is [...] /LPF] Many /LPF *ABN* (07/12/2013 03:00:00) UA [place] Yeast [None Seen /HPF] Moderate /HPF [...] values reflect the clinical guidelines of the [place] [employer].9Interpretive Data: Adult reference range values reflect the clinical guidelines of the [place] [employer].10Interpretive Data: Adult reference range values reflect the clinical guidelines of the [place] [employer].HEMATOLOGY Most recent to oldest [Reference [...] to oldest [Reference Range]: 1 2 3 [place]-HIV 1/2 Ab [Negative] Negative *NA* (07/14/2013 00:27:00) [place]-Hep C Ab [Negative] Negative *NA* (07/14/2013 00:27:00) CDC-HIV 1/2 Ab [Negative] Negative *NA* (07/12/2013 16:02:06)
--- OUTSIDE RECORDS SUMMARY | 2019-04-23 03:23 | XMS REPORT | CCD ---
:1965 Author Organization [facility] Care Team Providers Name Role Phone [...] 10/23/2012 Active Neuropathy Resolved - Nares - Eosds4lsnme 10/23/201240826Bdcgrrh added by Discern Expert. Medications Medication Instructions [...] values reflect the clinical guidelines of the [place] Diabetes Association.7Interpretive Data: Adult reference range values reflect the clinical guidelines of the [place] Diabetes [employer].HEMATOLOGY Most recent to oldest [Reference [...]
--- OUTSIDE RECORDS SUMMARY | 2019-04-23 03:24 | XMS REPORT | CCD ---
[...] 10/23/2012 Active Neuropathy Resolved - Nares - Npbjp6tyatu 10/23/201294956Xoyaffy added by Discern Expert. Medications Medication Instructions [...] values reflect the clinical guidelines of the [place] Diabetes Association.HEMATOLOGY Most recent to oldest [Reference [...]
--- OUTSIDE RECORDS SUMMARY | 2019-04-23 03:24 | XMS REPORT ---
:1965 Author Organization [facility] Address [address] [place] [address] [address] [place] [address] Care Team Providers Name Role Phone SHANI [...] (BEAKER) (test 211 mg/dL 70-110 TESTED AT [address] fjvy=9187) [place] [id number] POCT-GLUCOSE [id number] 13:04:00 Test Item Value Reference Range Comments POC-GLUCOSE METER (BEAKER) 282 mg/dL 70-110 TESTED AT [address] (test klcy=2552) [place] [id number] POCT-GLUCOSE [id number] 14:35:00 Test Item Value Reference Range Comments POC-GLUCOSE METER (BEAKER) 200 mg/dL 70-110 TESTED AT [address] (test gehy=0882) [place] [address] [id number] 12:24:00 Test Item Value Reference Range Comments SODIUM (BEAKER) (test ldpm=510) 136 meq/L 136-145 POTASSIUM (BEAKER) (test zihp=278) 5.4 meq/L 3.5-5.1 CHLORIDE (BEAKER) (test anyl=935) 102 meq/L 98-107 CO2 (BEAKER) (test mdoh=260) 25 meq/L 22-29 [id number] 12:24:00 Test Item Value Reference Range Comments GLUCOSE RANDOM (BEAKER) (test czke=960) 353 mg/dL 70-105 BUN AND [id number] 12:24:00 Test Item Value Reference Range Comments BLOOD UREA NITROGEN 14 mg/dL 7-21 ([facility]) (test qrbo=825) CREATININE ([facility]) (test 1.08 mg/dL 0.57-1.25 fpst=535) EGFR ([facility]) (test 53 mL/min/1.73 sq m ESTIMATED GFR IS NOT ebfg=3558) ACCURATE CREATININE CLEARANCE IN PREDICTING GLOMERULAR FILTRATION RATE. ESTIMATED GFR IS NOT APPLICABLE FOR DIALYSIS PATIENTS. POCT-HEMOGLOBIN [id number] 11:43:00 Test Item Value Reference Range Comments POC-HEMOGLOBIN METER 12.1 g/dL 12.0-15.[address] ([facility]) (test pdnu=9596) [place] [address] POCT-GLUCOSE [id number] 11:43:00 Test Item Value Reference Range Comments POC-GLUCOSE METER ([facility]) 320 mg/dL 70-110 Verify with Lab draw/TESTED AT (test cdcx=9369) [place] [address] [address] [place] [address]
[2019-04-23 04:27] VITALS: TEMP 97.5
[2019-04-23 04:29] VITALS: BP 149/70; O2SAT 98
== END 2019-04-23 03:19 | disposition home or self-care (01) ==
LOC: ER 02:13
DX: M79.10 Myalgia, unspecified site (principal); I10 Essential (primary) hypertension; E78.00 Pure hypercholesterolemia, unspecified; I25.2 Old myocardial infarction; E11.9 Type 2 diabetes mellitus without complications; F32.9 Major depressive disorder, single episode, unspecified; I51.9 Heart disease, unspecified; F17.210 Nicotine dependence, cigarettes, uncomplicated; Z79.82 Long term (current) use of aspirin; Z79.4 Long term (current) use of insulin; Z91.02 Food additives allergy status
CPT/HCPCS: 96372; 99283

== ENCOUNTER 2019-05-06 19:43 | Emergency (ER) | payer OTHER ==
--- OUTSIDE RECORDS SUMMARY | 2019-05-06 19:46 | XMS REPORT | Clinical Summary ---
:1965 Author Organization [facility] Address [address] [place] [address] Care Team Providers Name Role Phone Fabián [...] 05/31/2018 Surgery Gastroenterology Bo[facility] Barahona UPPER ENDOSCOPY [facility] 05/31/2018 Hospital Encounter Gastroenterology Boone Barahona [facility] 05/24/2018 Hospital Encounter Pre-Admission Testing Resource, [facility] Preadmit Phone after 05/05/2018 Social History Tobacco Use Types Packs/Day Years [...] procedure are in the results section. after 05/05/2018 Results POC-Glucose meter (05/31/2018 2:40 PM CDT)Only the most recent of2 resultswithin the time period is included. POC-Glucose Meter 211 (H)Comment: TESTED AT 70 - 110 mg/dL [facility] [address] [facility] [id number] Specimen Blood Performing Organization Address City/State/Zipcode Phone Number [facility] [address] [place] [address] CENTER REPORT OF PROCEDURE - ENDOSCOPY URL (05/31/2018 2:37 PM CDT) Narrative Performed At after 05/05/2018 Insurance Payer Benefit Plan / Group Subscriber ID Type Phone Address [facility] - MEDICARE AARP/MEDICARE COMPLETE xxxxxxxxx [facility] CARE Advance Directives For more information, please contact:[address] [phone] Code Status Date Activated Date Inactivated Comments Full Code 06/25/2017 10:56 AM 06/25/2017 5:59 PM This code status was determined by: Patient
[2019-05-06] MEDS ORDERED: NA CHLORIDE 0.9% 1,000 ML ONE ×2 (20:09→21:09)
[2019-05-06 20:37] LABS: Absolute Lymphocytes (CBC) 1.7 K/uL (0.7-4.9); Basophils % 1.5 % (0-1.3); Hematocrit 32.1 % (36.0-45.0); Lymphocytes % 26.2 % (15.3-44.8); MPV 9.8 fL (7.6-11.3); RBC Red Blood Cell Count 4.06 M/uL (3.86-4.86)
--- OUTSIDE RECORDS SUMMARY | 2019-05-06 20:37 | XMS REPORT | Continuity of Care Document ---
:1965 Author Organization [email or web address] Care Team Providers Name Role Phone [phone] Unavailable Unavailable Problems Problem Status Onset Classification Date Comments Source Date Reported PAIN IN Active 08/13/20 [facility] ABDOMEN/NAUSEA/TI Medical GHTENESS IN [facility] Center BDDC/GASTROESOPHA Active 07/24/20 [facility] GEAL REFLUX [address] [place] [address] DISEASE Center VOMITING Active 07/11/[address] Center GASTROPARESIS Active 07/11/[address] CHEST PAIN Active 04/02/[address] Center R/O ACS Active 04/02/[address] SOB/CHEST PAIN Active 03/06/[address] Center HYPERGLYCEMIA Active 03/06/20 [facility] DEHYDRATION [address] [place] [address] GASTROPARESIS Center NASEAU Active 01/11/[address] Center VOMITTING, Active 11/29/19 [facility] DIABETIC, HEART Medical PT Center N/V Active 11/29/[address] Center ACS R/O AND Active 11/17/19 [facility] PERSISTANT N/V [address] [place] [address] Center NAUSEA, VOMITTING Active 11/17/[address] Center MRSA1, 2 Active 10/23/19 Problem 11/19/2012 1nares 10/23/2012 [place] [id number] 2Problem added by Discern Expert. [facility] MRSA1, 2, 3, 4 Active 10/23/19 Problem 08/15/2013 - Nares [place] [address] - [facility] Medical 3nares 10/23/2012 Center 4Problem added by Discern Expert. MRSA1, 2, 3, 4 Active 10/23/19 Problem 04/05/2013 - Nares [place] [address] - [facility] Medical 3nares 10/23/2012 Center 4Problem added by Discern Expert. N/V DEHYDRATION Active 10/22/[address] [place] - Myocardial Resolved 02/16/20 Problem 08/15/2013 [facility] infarction [address] [place] [address] [place] - Myocardial Resolved 10/22/19 Problem 04/05/[address] DSU/ REFLUX Active 06/13/[address] MORBID OBESITY Active 01/19/[address] Acid reflux Resolved Problem 04/05/2013 [facility] Anemia Resolved Problem 04/05/2013 [facility] Anxiety Resolved Problem 04/05/2013 [facility] Arthritis Resolved Problem 04/05/2013 [facility] Depression Resolved Problem 04/05/2013 [facility] Diabetes mellitus Resolved Problem 04/05/[address] Edema of lower Resolved Problem 04/05/2013 [facility] Fibromyalgia Resolved Problem 04/05/2013 [facility] Hyperlipidemia Resolved Problem 04/05/2013 [facility] Hypertension Resolved Problem 04/05/2013 [facility] Acid reflux Resolved Problem 08/15/2013 [facility] Anemia Resolved Problem 08/15/2013 [facility] Anxiety Resolved Problem 08/15/2013 [facility] Arthritis Resolved Problem 08/15/2013 [facility] Depression Resolved Problem 08/15/2013 [facility] Diabetes mellitus Resolved Problem 08/15/[address] Edema of lower Resolved Problem 08/15/2013 [facility] Fibromyalgia Resolved Problem 08/15/2013 [facility] Gastric ulcer Resolved Problem 08/15/2013 [facility] Hyperlipidemia Resolved Problem 08/15/2013 [facility] Hypertension Resolved Problem 08/15/2013 [facility] Neuropathy Resolved Problem 08/15/2013 [facility] Gastric ulcer Resolved Problem 04/05/2013 [facility] Neuropathy Resolved Problem 04/05/2013 [facility] MORBID OBESITY Active [facility] NAUSEA WITH Active [facility] VOMITING [facility] CHEST PAIN NOS Active [facility] OTHER GENERAL Active [facility] SYMPTOMS [facility] Medications Medication Details Route Status Patient Ordering Order Source Instructions Provider Date Zofran 4 mg 4 mg=1 tab, PO, Active De La Garza 08/13/ [facility] oral tablet BID, # 10 tab, 0 2012 Medical Refill(s) Center Reglan 10 mg 10 mg=1 tab, PO, Active De La Garza 08/13/ [facility] oral tablet QID, # 40 tab, 0 2012 Medical Refill(s) Center IDS med 5 mg, 1 mL, Inactive Ruggiero 08/13/ [facility] Rate: 30 ml/hr, 2012 Medical Infuse over: 2 Center minutes, Route: IV, Total Volume: 1, Stop date: 08/13/13 16:00:00 NS (Bolus) IV 1,000 mL, Rate: Inactive De La Garza [facility] 1,000 mL 1,000 ml/hr, 2012 Medical Infuse over: 1 Center hr, Route: IV, Dosing Weight 81.818 kg, Total Volume: 1,000, Priority: STAT, Start date: 08/13/13 13:56:00, Duration: 1 doses or times, Stop date: 08/13/13 14:55:00, Bolus DoseBolus Dose Phenergan 25 mg, 1 mL, Inactive De La Garza [facility] Route: IVPB, 2012 Medical Drug form: INJ, Center ONCE, Dosing Weight 81.818, kg, Priority: STAT, Start date: 08/13/13 13:17:00, Stop date: 08/13/13 13:17:00Do not give IV push. (Same as: Phenergan) Zofran 4 mg, 2 mL, Inactive De La Garza [facility] Route: IVP, Drug 2012 Medical form: INJ, ONCE, Center Dosing Weight 81.818, kg, Priority: STAT, Start date: 08/13/13 12:41:00, Stop date: 08/13/13 12:41:00(Same as: Zofran) morphine 4 mg, 1 mL, Inactive De La Garza [facility] Sulfate Route: IVP, Drug 2012 Medical form: INJ, ONCE, Center Dosing Weight 81.818, kg, Priority: STAT, Start date: 08/13/13 12:40:00, Stop date: 08/13/13 12:40:00(Same as:MORPhine Sulfate) Sodium Chloride 1,000 mL, Rate: Inactive Wilfredcz [facility] 0.9% (Bolus) IV 1,000 ml/hr, 2012 Medical 1,000 mL Infuse over: 1 Center hr, Route: IV, Dosing Weight 81.818 kg, Total Volume: 1,000, Priority: STAT, Start date: 08/13/13 11:52:00, Duration: 1 doses or times, Stop date: 08/13/13 12:51:00, Bolus DoseBolus Dose normal saline 1,000 mL, Rate: Inactive [facility] 0.9% IV 1,000 500 ml/hr, 2012 Medical mL Infuse over: 2 Center hr, Route: IV, Dosing Weight 86.364 kg, Total Volume: 1,000, Start date: 07/14/13 14:02:00, Duration: 4 hr, Stop date: 07/14/13 18:01:00 Reglan 10 mg 10 mg, 1 tab, Inactive [facility] oral tablet Route: PO, Drug 2012 Medical form: TAB, Center TID-Before Meals, Dosing Weight 86.364, kg, Start date: 07/14/13 11:30:00, Duration: 30 day, Stop date: 08/13/13 7:30:00(Same as: Reglan) Take 30 min before meals Levemir 15 unit, 0.15 No Longer [facility] mL, Route: Active 2012 Medical SUB-Q, Drug Center form: INJ, BID, Dosing Weight 86.364, kg, Start date: 07/13/13 21:00:00, Duration: 30 day, Stop date: 08/12/13 9:00:00Same as Levemir "single patient use only" pneumococcal 0.5 ml, Route: No Longer SYSTEM [facility] 23-valent IM, Drug Form: Active 2012 Medical vaccine INJ, Start date: [place] 07/13/13 9:00:00, Stop date: 07/13/13 9:00:00 influenza virus 0.5 ml, Route: No Longer SYSTEM [facility] vaccine, IM, Drug Form: Active 2012 Medical inactivated SUSP, Start Center date: 07/13/13 9:00:00, Stop date: 07/13/13 9:00:00 lisinopril 20 mg, 1 tab, No Longer [facility] Route: PO, Drug Active 2012 Medical form: TAB, Center Daily, Dosing Weight 86.364, kg, Start date: 07/13/13 9:00:00, Duration: 30 day, Stop date: 08/11/13 9:00:00(Same as: Prinivil, Zestril) metoprolol 50 mg, Route: No Longer [place] [facility] tartrate PO, Drug form: Active 2012 Medical TAB, Daily, Center Dosing Weight 86.364, kg, Start date: 07/13/13 9:00:00, Duration: 30 day, Stop date: 08/11/13 9:00:00 Lyrica 150 mg, 2 cap, No Longer Adolfo [place] Route: PO, Drug Active 2012 Medical form: CAP, BID, Center Dosing Weight 86.364, kg, Start date: 07/13/13 9:00:00, Duration: 30 day, Stop date: 08/11/13 17:00:00(Same as: Lyrica) potassium 20 mEq, 1 tab, No Longer [facility] [place] chloride Route: PO, Drug Active 2012 Medical form: ERTAB, Center Daily, Dosing Weight 86.364, kg, Start date: 07/13/13 9:00:00, Duration: 30 day, Stop date: 08/11/13 9:00:00(Same as: K-Dur 20) "Do Not Crush" With food and full glass of water Effient 10 mg, 1 tab, No Longer [facility] Route: PO, Drug Active 2012 Medical form: TAB, Center Daily, Dosing Weight 86.364, kg, Start date: 07/13/13 9:00:00, Duration: 30 day, Stop date: 08/11/13 9:00:00Same as Effient For patients 60kg, without history of TIA/Ischemic stroke and without likely bypass surgery Protonix 40 mg, 1 tab, No Longer [facility] Route: PO, Drug Active 2012 Medical form: ECTAB, Center BID-Before Meals, Dosing Weight 86.364, kg, Start date: 07/13/13 9:00:00, Stop date: 08/11/13 16:30:00Tablet should not be chewed or crushed. (Same as: Protonix) meloxicam 7.5 mg, Route: No Longer [place] [facility] PO, Drug form: Active 2012 Medical TAB, BID, Dosing Center Weight 86.364, kg, Start date: 07/13/13 9:00:00, Duration: 30 day, Stop date: 08/11/13 17:00:00 magnesium oxide 400 mg, 1 tab, No Longer [facility] Route: PO, Drug Active 2012 Medical form: TAB, Center Daily, Dosing Weight 86.364, kg, Start date: 07/13/13 9:00:00, Duration: 30 day, Stop date: 08/11/13 9:00:00(Same as: Mag-Ox 400) Magnesium oxide [id number] elemental magnesium Dose=____mg magnesium oxide (___mg elemental magnesium) furosemide 40 40 mg, 1 tab, No Longer [facility] mg oral tablet Route: PO, Drug Active 2012 Medical form: TAB, Center Daily, Dosing Weight 86.364, kg, Start date: 07/13/13 9:00:00, Duration: 30 day, Stop date: 08/11/13 9:00:00(Same as: Lasix) May cause GI upset. Give with food or milk. ferrous sulfate 325 mg, 1 tab, No Longer [facility] Route: PO, Drug Active 2012 Medical form: ECTAB, Center TID, Dosing Weight 86.364, kg, Start date: 07/13/13 9:00:00, Duration: 30 day, Stop date: 08/11/13 17:00:00Give with food. "Do Not Crush" clonazepam 0.5 mg, 1 tab, No Longer [facility] Route: PO, Drug Active 2012 Medical form: TAB, TID, Center Dosing Weight 86.364, kg, Start date: 07/13/13 9:00:00, Duration: 30 day, Stop date: 08/11/13 17:00:00(Same As: Klonopin) Insulin regular 5 unit, 0.05 mL, No Longer [facility] Route: SUB-Q, Active 2012 Medical [...] Reglan 10 mg, 2 mL, No Longer [facility] Route: IVP, Drug Active 2012 Medical form: INJ, Q6H, Center Dosing Weight 86.364, kg, Start date: 07/13/13 0:00:00, Duration: 30 day, Stop date: 08/11/13 18:00:00(Same as: Reglan) normal saline 1,000 mL, Rate: No Longer [facility] 0.9% IV 1,000 200 ml/hr, Active 2012 Medical mL Infuse over: 5 Center hr, Route: IV, Dosing Weight 86.364 kg, Total Volume: 1,000, Start date: 07/12/13 21:08:00, Duration: 3 doses or times, Stop date: 07/13/13 12:07:00 metoprolol 50 mg, 1 tab, No Longer [facility] tartrate Route: PO, Drug Active 2012 Medical form: TAB, Q12H, Center Dosing Weight 86.364, kg, Start date: 07/12/13 21:00:00, Duration: 30 day, Stop date: 08/11/13 9:00:00(Same as: Lopressor) Levemir 12 unit, 0.12 No Longer [facility] mL, Route: Active 2012 Medical SUB-Q, Drug Center form: INJ, BID, Dosing Weight 86.364, kg, Start date: 07/12/13 21:00:00, Duration: 30 day, Stop date: 08/11/13 9:00:00Same as Levemir "single patient use only" Cymbalta 120 mg, 2 cap, No Longer [facility] Route: PO, Drug Active 2012 Medical form: DRC, Center Bedtime, Dosing Weight 86.364, kg, Start date: 07/12/13 21:00:00, Duration: 30 day, Stop date: 08/10/13 21:00:00Non Formulary Drug (Same as: Cymbalta) (Do Not Crush) ProAir HFA 90 2 puff, Route: No Longer [place] [facility] mcg/inh INHALATION, Drug Active 2012 Medical inhalation Form: AERO/A, [place] aerosol with Dosing Weight adapter 86.364, kg, QID, PRN Shortness of breath, Start date: 07/12/13 20:09:00, Duration: 30 day, Stop date: 08/11/13 20:08:00Albutero l 90 microgram/inh 8gm HFA Same as: Ventolin, Proventil aspirin 81 mg 81 mg, 1 tab, No Longer [facility] tablet, enteric Route: PO, Drug Active 2012 Medical coated form: ECTAB, [place] Daily, Dosing Weight 86.364, kg, Start date: 07/12/13 20:00:00, Duration: 30 day, Stop date: 08/11/13 9:00:00Do not crush or chew. (Same As: Ecotrin) glucagon 1 mg, Route: IM, No Longer Adolfo [facility] Drug form: Active 2012 Medical PDR/INJ, PRN, [place] Dosing Weight 86.364, kg, PRN Blood Glucose Results, Start date: 07/12/13 18:26:00, Duration: 30 day, Stop date: 08/11/13 18:25:00 Dextrose 50% 12.5 gm, 25 mL, No Longer [facility] Syringe Route: IVP, Drug Active 2012 Medical Form: INJ, [place] Dosing Weight 86.364, kg, PRN, PRN Blood Glucose Results, Start date: 07/12/13 18:26:00, Duration: 30 day, Stop date: 08/11/13 18:25:00 insulin aspart 4 unit, 0.04 mL, No Longer [facility] Route: SUB-Q, Active 2012 Medical Drug form: SOLN, [place] TID-Before Meals, Dosing Weight 86.364, kg, PRN Blood Glucose Results, Start date: 07/12/13 18:26:00, Duration: 30 day, Stop date: 08/11/13 18:25:00Roll in palms of hands gently; Do not shake vigorously. (Same as: NovoLog) "single patient use only" Stable for 28 days at room temperature. Expires in days from Da te tramadol 50 mg 50 mg, 1 tab, No Longer [place] oral tablet Route: PO, Drug Active 2012 Medical form: TAB, Q4H, Center Dosing Weight 86.364, kg, PRN as needed for pain, Start date: 07/12/13 18:24:00, Duration: 30 day, Stop date: 08/11/13 18:23:00Not to exceed 400mg/day. (Same As: Ultram) acetaminophen-h 1 tab, Route: No Longer [facility] ydrocodone 325 PO, Drug Form: Active 2012 Medical mg-5 mg oral TAB, Dosing Center tablet Weight 86.364, kg, Q4H, PRN Pain, Start date: 07/12/13 18:23:00, Duration: 30 day, Stop date: 08/11/13 18:22:00(Same as: [place] 325/5) Do not exceed 4gm/day of acetaminophen. Flexeril 10 mg, 1 tab, No Longer [facility] Route: PO, Drug Active 2012 Medical form: TAB, TID, Center Dosing Weight 86.364, kg, PRN Spasm, Start date: 07/12/13 18:23:00, Duration: 30 day, Stop date: 08/11/13 18:22:00(Same As: Flexeril) benzonatate 100 mg, 1 cap, No Longer [facility] Route: PO, Drug Active 2012 Medical form: CAP, TID, Center Dosing Weight 86.364, kg, PRN as needed for cough, Start date: 07/12/13 18:23:00, Duration: 30 day, Stop date: 08/11/13 18:22:00(Same As: Oleksandr Francis) "Do Not Crush" Saline Flush 5 ml, Route: No Longer [facility] [place] 0.9% IVP, Drug Form: Active 2012 Medical INJ, Dosing Center Weight 86.364, kg, PRN, PRN Line Flush, Start date: 07/12/13 18:22:00, Duration: 30 day, Stop date: 08/11/13 18:21:00(Same as: BD Posiflush) ondansetron 4 mg, 2 mL, No Longer [facility] Route: IVP, Drug Active 2012 Medical form: INJ, Q8H, Center Dosing Weight 86.364, kg, PRN Nausea & Vomiting, Start date: 07/12/13 18:22:00, Duration: 30 day, Stop date: 08/11/13 18:21:00(Same as: Zofran) aspirin 81 mg 81 mg, 1 tab, Active [facility] tablet, enteric PO, Daily, 0 2012 Medical coated tab, Center Substitution Allowed, ECTAB Klor-Con M20 20 mEq, 1 tab, No Longer [facility] oral tablet, PO, Daily, 180 Active 2012 Medical extended tab, Center release Substitution Allowed, ERTAB furosemide 40 40 mg, 1 tab, No Longer [facility] mg oral tablet PO, Daily, 30 Active 2012 Medical tab, Center Substitution Allowed, TAB benzonatate 100 PO, TID, PRN, 1 Active [facility] mg oral capsule to 2 tabs, prn, 2012 Medical Substitution Center Allowed1 to 2 tabs metoprolol 50 mg, 1 tab, No Longer [facility] tartrate 50 mg PO, Daily, 180 Active 2012 Medical oral tablet tab, Center Substitution Allowed, TAB Reglan 10 mg, 2 mL, Inactive Clover Simmons [facility] Route: IVP, Drug 2012 Medical form: INJ, ONCE, Center Dosing Weight 86.364, kg, Priority: STAT, Start date: 07/12/13 12:12:00, Stop date: 07/12/13 12:12:00(Same as: Reglan) Zofran 4 mg, Route: Inactive [facility] 07/12[facility] IVP, Drug form: 2012 Medical INJ, ONCE, Center Dosing Weight 86.364, kg, Priority: STAT, Start date: 07/12/13 10:52:00, Stop date: 07/12/13 10:52:00 morphine 4 mg, Route: Inactive [facility] 07/12[facility] Sulfate IVP, Drug form: 2012 Medical INJ, ONCE, Center Dosing Weight 86.364, kg, Priority: STAT, Start date: 07/12/13 10:51:00, Stop date: 07/12/13 10:51:00 Zofran 4 mg, 2 mL, Inactive Clover iSmmons Fei Route: IVP, Drug 2012 Medical form: [...] Stop date: 07/12/13 11:05:00, Bolus DoseBolus Dose [place] 5/325 1 tab, Route: Inactive Clover Simmons [...] ODT 8 mg, Route: PO, Inactive Tiara [facility] Drug form: 2012 Medical TABDIS, ONCE, Center Dosing Weight 86.364, kg, Priority: STAT, Start date: 07/12/13 6:56:00, Stop date: 07/12/13 6:56:00 Levemir 10 unit, 0.1 mL, Inactive Tiara [facility] Route: SUB-Q, 2012 Medical Drug form: INJ, Center ONCE, Dosing Weight 86.364, kg, Start date: 07/12/13 4:20:00, Stop date: 07/12/13 4:20:00Same as Levemir "single patient use only" Omnipaque 100 mL, Route: Inactive Tiara Fei 350mg/ml IVP, Drug Form: 2012 Medical SOLN, Dosing Center Weight 86.364, kg, ONCALL, STAT, Start date: 07/12/13 4:18:00, Duration: 1 doses or times, Dose=2.2ml/kg, Max [id number] -- "To be infused by Radiology Staff ONLY"Dose=2.2ml/ kg, Max [id number] -- "To be infused by Radiology Staff [...] mg, 1 tab, PO No Longer Omidvar [place] tablet, enteric Route: PO, Drug Active 2012 Medical coated form: ECTAB, Center Daily, Dosing Weight 90, kg, Start date: 04/03/13 9:00:00, Duration: 30 day, Stop date: 05/02/13 9:00:00 Effient 10 mg, 1 tab, PO No Longer Omidvar [facility] Route: PO, Drug Active 2012 Medical form: TAB, Center Daily, Dosing Weight 90, kg, Start date: 04/03/13 9:00:00, Duration: 30 day, Stop date: 05/02/13 9:00:00 Lyrica 150 mg, 2 cap, PO No Longer Omidvar [facility] Route: PO, Drug Active 2012 Medical form: CAP, BID, Center Dosing Weight 90, kg, Start date: 04/03/13 9:00:00, Duration: 30 day, Stop date: 05/02/13 17:00:00 Protonix 40 mg, 1 tab, PO No Longer Omidvar [facility] Route: PO, Drug Active 2012 [...] mg, 1 tab, PO No Longer Omidvar [facility] Route: PO, Drug Active 2012 Medical form: TAB, BID, Center Dosing Weight 90, kg, Priority: Routine, Start date: 04/03/13 9:00:00, Duration: 30 day, Stop date: 05/02/13 17:00:00 lisinopril 20 mg, Route: PO No Longer Omidvar [facility] PO, Drug form: Active 2012 Medical TAB, Daily, Center Dosing Weight 90, kg, Start date: 04/03/13 9:00:00, Duration: 30 day, Stop date: 05/02/13 9:00:00 Levemir 12 unit, Route: SUB-Q No Longer Omidvar [facility] SUB-Q, BID, Active 2012 Medical Dosing Weight Center 90, kg, Start date: 04/03/13 9:00:00, Duration: 30 day, Stop date: 05/02/13 17:00:00 ferrous sulfate 325 mg, 1 tab, PO No Longer Omidvar Route: PO, Drug Active 2012 Medical form: ECTAB, [place] TID, Dosing Weight 90, kg, Start date: [...] SUB-Q, Active 2012 Medical Drug form: SOLN, [place] TID-Before Meals, Dosing Weight 90, kg, Start [...] mg, 2 cap, PO No Longer Omidvar [facility] Route: PO, Drug Active 2012 Medical form: DRC, [place] Bedtime, Dosing Weight 90, kg, Start date: 04/02/13 23:30:00, Duration: 30 day, Stop date: 05/02/13 21:00:00 Zocor 40 mg, 1 tab, PO No Longer Omidvar [facility] Route: PO, Drug Active 2012 Medical form: TAB, Center Bedtime, Dosing Weight 90, kg, Start date: 04/02/13 21:00:00, Duration: 30 day, Stop date: 05/01/13 21:00:00 Cymbalta 60 mg, 1 cap, PO No Longer Omidvar [facility] Route: PO, Drug Active 2012 Medical form: DRC, Center Bedtime, Dosing Weight 90, kg, Start date: 04/02/13 21:00:00, Duration: 30 day, Stop date: 05/01/13 21:00:00 magnesium oxide 400 mg, 1 tab, PO No Longer Omidvar [place] Route: PO, Drug Active 2012 Medical form: TAB, Center Daily, Dosing Weight 90, kg, Priority: NOW, Start date: 04/02/13 20:45:00, Duration: 30 day, Stop date: 05/02/13 9:00:00 Levemir 12 unit, 0.12 SUB-Q No Longer Omidvar [place] mL, Route: Active 2012 Medical SUB-Q, Drug Center form: INJ, BID, Dosing Weight 90, kg, Start date: 04/02/13 20:45:00, Duration: 30 day, Stop date: 05/02/13 17:00:00 hydrALAZINE 10 mg, 0.5 mL, IVP No Longer Omidvar [facility] Route: IVP, Drug Active 2012 Medical form: INJ, Q4H, Center Dosing Weight 90, kg, PRN Hypertension, Start date: 04/02/13 20:37:00, Duration: 30 day, Stop date: 05/02/13 20:36:00 lisinopril 20 mg, 1 tab, PO No Longer Omidvar [facility] Route: PO, Drug Active 2012 Medical form: TAB, Center Daily, Dosing Weight 90, kg, Start date: 04/02/13 20:30:00, Duration: 30 day, Stop date: 05/02/13 9:00:00 metoprolol 12.5 mg, 1 ea, PO No Longer Omidvar [facility] tartrate Route: PO, Drug Active 2012 Medical form: TAB, BID, Center Dosing Weight 90, kg, Start date: 04/02/13 20:30:00, Duration: 30 day, Stop date: 05/02/13 17:00:00 insulin aspart 8 unit, 0.08 mL, SUB-Q No Longer Omidvar [facility] Route: SUB-Q, Active 2012 Medical Drug form: SOLN, Center TID-Before Meals, Dosing Weight 90, kg, PRN Blood Glucose Results, Start date: 04/02/13 20:30:00, Duration: 30 day, Stop date: 05/02/13 20:29:00 glucagon 1 mg, Route: IM, IM No Longer Omidvar [facility] Drug form: Active 2012 Medical PDR/INJ, PRN, Center Dosing Weight 90, kg, PRN Blood Glucose Results, Start date: 04/02/13 20:30:00, Duration: 30 day, Stop date: 05/02/13 20:29:00 Dextrose 50% 25 gm, 50 mL, IVP No Longer Omidvar 04/03[facility] Syringe Route: IVP, Drug Active 2012 Medical Form: INJ, Center Dosing Weight 90, kg, PRN, PRN Blood Glucose Results, Start date: 04/02/13 20:30:00, Duration: 30 day, Stop date: 05/02/13 20:29:00 Insulin regular 8 unit, Route: SUB-Q No Longer Omidvar [facility] SUB-Q, Active 2012 Medical TID-Before Center Meals, Dosing Weight 90, kg, PRN Blood Glucose Results, Start date: 04/02/13 20:29:00, Duration: 30 day, Stop date: 05/02/13 20:28:00 glucagon 1 mg, Route: IM, IM No Longer Omidvar 04/03[facility] PRN, Dosing Active 2012 Medical Weight 90, kg, Center PRN Blood Glucose Results, Start date: 04/02/13 20:29:00, Duration: 30 day, Stop date: 05/02/13 20:28:00 Dextrose 50% 50 mL, Route: IVP No Longer Omidvar 04/03[facility] Syringe IVP, Dosing Active 2012 Medical Weight 90, kg, Center PRN, PRN Blood Glucose Results, Start date: 04/02/13 20:29:00, Duration: 30 day, Stop date: 05/02/13 20:28:00 Zofran 4 mg, 2 mL, IV No Longer [facility] [facility] Route: IV, Drug Active 2012 Medical form: INJ, Q8H, Center Dosing Weight 90, kg, PRN Nausea, Start date: 04/02/13 20:29:00, Duration: 30 day, Stop date: 05/02/13 20:28:00 Maalox Advanced 30 mL, Route: PO No Longer Omidvar [facility] Regular PO, Drug Form: Active 2012 Medical Strength SUSP SUSP, Dosing Center Weight 90, kg, QID, PRN Indigestion, Start date: 04/02/13 20:28:00, Duration: 30 day, Stop date: 05/02/13 20:27:00 Flexeril 10 mg, 1 tab, PO No Longer Omidvar [facility] Route: PO, Drug Active 2012 Medical form: TAB, TID, Center Dosing Weight 90, kg, PRN Spasm, Start date: 04/02/13 20:22:00, Duration: 30 day, Stop date: 05/02/13 20:21:00 acetaminophen-h 1 tab, Route: PO No Longer idvar [facility] ydrocodone 325 PO, Drug Form: Active 2012 Medical mg-5 mg oral TAB, Dosing Center tablet Weight 90, kg, Q4H, PRN Pain, Start date: 04/02/13 20:22:00, Duration: 30 day, Stop date: 05/02/13 20:21:00 Phenergan 12.5 mg, 0.5 mL, IVPB No Longer Mitch 04/03[facility] Route: IVPB, Active 2012 Medical Drug form: INJ, Center ONCE, Dosing Weight 90, kg, Start date: 04/02/13 20:11:00, Stop date: 04/02/13 20:11:00 morphine 4 mg, 1 mL, IVP No Longer Mitch [facility] Sulfate Route: IVP, Drug Active 2012 Medical form: INJ, ONCE, Center Dosing Weight 90, kg, Start date: 04/02/13 20:10:00, Stop date: 04/02/13 20:10:00 Phenergan 12.5 mg, 0.5 mL, IVPB No Longer Zhang [facility] Route: IVPB, Active 2012 Medical Drug form: INJ, Center ONCE, Dosing Weight 90, kg, Priority: STAT, Start date: 04/02/13 17:11:00, Stop date: 04/02/13 17:11:00 Zofran 4 mg, 2 mL, IVP No Longer Zhang [facility] Route: IVP, Drug Active 2012 Medical form: INJ, ONCE, Center Dosing Weight 90, kg, Priority: STAT, Start date: 04/02/13 16:52:00, Stop date: 04/02/13 16:52:00 nitroglycerin 0.4 mg, 1 tab, SL No Longer Kiki [facility] Route: SL, Drug Active 2012 Medical form: TAB, Center Q5Min, Dosing Weight 90, kg, PRN Chest Pain, Priority: STAT, Start date: 04/02/13 16:31:00, Duration: 3 doses or times, Stop date: Limited # of times aspirin 325 mg, 1 tab, PO No Longer Kiki [facility] Route: PO, Drug Active 2012 Medical form: ECTAB, Center ONCE, Dosing Weight 90, kg, Priority: STAT, Start date: 04/02/13 16:31:00, Stop date: 04/02/13 16:31:00 morphine 4 mg, 1 mL, IVP No Longer Kiki [facility] Sulfate Route: IVP, Drug Active 2012 Medical form: INJ, ONCE, Center Dosing Weight 90, kg, Start date: 04/02/13 16:30:00, Stop date: 04/02/13 16:30:00 erythromycin 1 cap, PO, Q12H, PO Active Osuagwu [facility] 250 mg oral 14 cap, 2012 Medical enteric coated Substitution Center tablet Allowed, ECTAB GI cocktail 30 ml, Route: PO No Longer Osuagwu [facility] PO, Drug Form: Active 2012 Medical SUSP, Dosing Center Weight 90, kg, ONCE, Routine, Start date: 03/08/13 16:26:00, Stop date: 03/08/13 16:26:00 erythromycin 250 mg, 1 cap, PO No Longer Osuagwu [place] 250 mg oral Route: PO, Drug Active 2012 Medical enteric coated form: ECCAP, [place] tablet Q12H, Dosing Weight 90, kg, Start date: 03/08/13 12:00:00, Duration: 30 day, Stop date: 04/07/13 9:00:00 magnesium 2 gm, 50 mL, IVPB No Longer Osuagwu [facility] sulfate Route: IVPB, Active 2012 Medical Drug form: INJ, Center Q2H, Dosing Weight 90, kg, Total Dose=4 gm, Start date: 03/08/13 12:00:00, Duration: 2 doses or times, Stop date: 03/08/13 14:00:00, For Mg=1.5 - 1.7 mg/dLFor Mg=1.5 - 1.7 mg/dL insulin aspart 5 unit, 0.05 mL, SUB-Q No Longer Camcioglu [facility] Route: SUB-Q, Active 2012 Medical Drug form: SOLN, [place] ONCE, Dosing Weight 90, kg, Start date: 03/08/13 3:17:00, Stop date: 03/08/13 3:17:00 Zocor 40 mg, 1 tab, PO No Longer Talon [facility] Route: PO, Drug Active 2012 Medical form: TAB, Center Bedtime, Dosing Weight 90, kg, Start date: 03/07/13 21:00:00, Duration: 30 day, Stop date: 04/05/13 21:00:00 Cymbalta 120 mg, 2 cap, PO No Longer Talon [facility] Route: PO, Drug Active 2012 [...] unit, 0.1 mL, SUB-Q No Longer Talon [facility] Route: SUB-Q, Active 2012 Medical Drug form: SOLN, Center ONCE, Dosing Weight 90, kg, Start date: 03/07/13 19:16:00, Stop date: 03/07/13 19:16:00 Lyrica 150 mg, 2 cap, PO No Longer Talon [facility] Route: PO, Drug Active 2012 Medical form: CAP, BID, Center Dosing Weight 90, kg, Start date: 03/07/13 17:00:00, Duration: 30 day, Stop date: 04/06/13 9:00:00 Protonix 40 mg, 1 tab, PO No Longer Talon [facility] Route: PO, Drug Active 2012 Medical form: ECTAB, Center BID, Dosing Weight 90, kg, Start date: 03/07/13 17:00:00, Duration: 30 day, Stop date: 04/06/13 9:00:00 meloxicam 7.5 mg, 1 tab, PO No Longer Talon [facility] Route: PO, Drug Active 2012 Medical form: TAB, Center BID-Meals, Dosing Weight 90, kg, Start date: 03/07/13 17:00:00, Duration: 30 day, Stop date: 04/06/13 8:00:00 Flexeril 10 mg, 1 tab, PO No Longer Talon [facility] Route: PO, Drug Active 2012 Medical form: TAB, BID, Center Dosing Weight 90, kg, Start date: 03/07/13 17:00:00, Duration: 30 day, Stop date: 04/06/13 9:00:00 NovoLog FlexPen 6 unit, 0.06 mL, SUB-Q No Longer Osuagwu [facility] Route: SUB-Q, Active 2012 Medical Drug form: SOLN, Center TID-Before Meals, Start date: 03/07/13 16:30:00, Duration: 30 day, Stop date: 04/06/13 11:30:00 Humalog 6 unit, Route: SUB-Q No Longer Talon [facility] SUB-Q, Active 2012 Medical TID-Before Center Meals, Dosing Weight 90, kg, Start date: 03/07/13 16:30:00, Duration: 30 day, Stop date: 04/06/13 11:30:00 heparin 5,000 unit, 1 SUB-Q No Longer Talon [facility] mL, Route: Active 2012 Medical SUB-Q, Drug Center form: INJ, Q8H, Dosing Weight 90, kg, Start date: 03/07/13 16:00:00, Duration: 30 day, Stop date: 04/06/13 8:00:00 Effient 10 mg, 1 tab, PO No Longer Talon [facility] Route: PO, Drug Active 2012 Medical form: TAB, Center Daily, Dosing Weight 90, kg, Start date: 03/07/13 13:30:00, Duration: 30 day, Stop date: 04/06/13 9:00:00 magnesium oxide 400 mg, 1 tab, PO No Longer Talon [facility] Route: PO, Drug Active 2012 Medical form: TAB, Center Daily, Dosing Weight 90, kg, Start date: 03/07/13 13:30:00, Duration: 30 day, Stop date: 04/06/13 9:00:00 lisinopril 20 mg, 1 tab, PO No Longer Talon [facility] Route: PO, Drug Active 2012 Medical form: TAB, Center Daily, Dosing Weight 90, kg, Start date: 03/07/13 13:30:00, Duration: 30 day, Stop date: 04/06/13 9:00:00 Reglan 5 mg, 1 tab, PO No Longer Talon [facility] Route: PO, Drug Active 2012 Medical form: TAB, TID, Center Dosing Weight 90, kg, Start date: 03/07/13 13:00:00, Duration: 30 day, Stop date: 04/06/13 9:00:00 ferrous sulfate 325 mg, 1 tab, PO No Longer Talon [facility] Route: PO, Drug Active 2012 Medical form: ECTAB, Center TID, Dosing Weight 90, kg, Start date: 03/07/13 13:00:00, Duration: 30 day, Stop date: 04/06/13 9:00:00 clonazepam 0.5 mg, 1 tab, PO No Longer Talon [facility] Route: PO, Drug Active 2012 Medical form: TAB, TID, Center Dosing Weight 90, kg, Start date: 03/07/13 13:00:00, Duration: 30 day, Stop date: 04/06/13 9:00:00 NovoLog 6 unit, SUB-Q, SUB-Q No Longer [place] TID-Before Active 2012 Medical Meals, Center Substitution Allowed Levemir 12 unit, SUB-Q, SUB-Q Active [place] BID, 2012 Medical Substitution Center Allowed NS 1,000 mL 1,000 mL, Rate: IV No Longer [place]on [place] 125 ml/hr, Active 2012 Medical Infuse over: 8 Center hr, Route: IV, Dosing Weight 90 kg, Total Volume: 1,000, Start date: 03/07/13 12:19:00, Duration: 30 day, Stop date: 04/06/13 12:18:00 insulin aspart 2 unit, 0.02 mL, SUB-Q No Longer Talon [facility] Route: SUB-Q, Active 2012 Medical Drug form: SOLN, Center TID-Before Meals, Dosing Weight 90, kg, PRN Blood Glucose Results, Start date: 03/07/13 11:55:00, Duration: 30 day, Stop date: 04/06/13 11:54:00 glucagon 1 mg, Route: IM, IM No Longer Talon [facility] Drug form: Active 2012 Medical PDR/INJ, PRN, Center Dosing Weight 90, kg, PRN Blood Glucose Results, Start date: 03/07/13 11:55:00, Duration: 30 day, Stop date: 04/06/13 11:54:00 Dextrose 50% 12.5 gm, 25 mL, IVP No Longer Talon [facility] Syringe Route: IVP, Drug Active 2012 Medical Form: INJ, Center Dosing Weight 90, kg, PRN, PRN Blood Glucose Results, Start date: 03/07/13 11:55:00, Duration: 30 day, Stop date: 04/06/13 11:54:00 Phenergan 12.5 mg, 0.5 mL, IVPB No Longer Talon [facility] Route: IVPB, Active 2012 Medical Drug form: INJ, Center Q4H, Dosing Weight 90, kg, PRN Nausea & Vomiting, Start date: 03/07/13 11:53:00, Duration: 30 day, Stop date: 04/06/13 11:52:00 albuterol 2.49 mg, 3 mL, NEB No Longer Talon [facility] 0.083% Route: NEB, Drug Active 2012 Medical inhalation form: SOLN, Center solution RQ4H, Dosing Weight 90, kg, PRN as needed for wheezing, Start date: 03/07/13 11:53:00, Duration: 30 day, Stop date: 04/06/13 11:52:00 Zofran 4 mg, 2 mL, IVP No Longer Talon [facility] Route: IVP, Drug Active 2012 Medical form: INJ, Q4H, Center Dosing Weight 90, kg, PRN Nausea, Start date: 03/07/13 11:53:00, Duration: 30 day, Stop date: 04/06/13 11:52:00 acetaminophen-h 1 tab, Route: PO No Longer Talon [facility] ydrocodone 325 PO, Drug Form: Active 2012 Medical mg-10 mg oral TAB, Dosing Center tablet Weight 90, kg, Q4H, PRN Pain Score 4-6, Start date: 03/07/13 11:51:00, Duration: 30 day, Stop date: 04/06/13 11:50:00 acetaminophen-h 1 tab, Route: PO No Longer Talon [facility] ydrocodone 325 PO, Drug Form: Active 2012 Medical mg-5 mg oral TAB, Dosing Center tablet Weight 90, kg, Q4H, PRN Pain Score 1-3, Start date: 03/07/13 11:51:00, Duration: 30 day, Stop date: 04/06/13 11:50:00 acetaminophen 650 mg, 2 tab, PO No Longer Talon [facility] Route: PO, Drug Active 2012 Medical form: TAB, Q4H, Center Dosing Weight 90, kg, PRN Pain 1-3/Temp > 100.4 F, Start date: 03/07/13 11:51:00, Duration: 30 day, Stop date: 04/06/13 11:50:00 morphine 2 mg, 1 mL, IVP No Longer Talon [facility] Sulfate Route: IVP, Drug Active 2012 Medical form: INJ, Q4H, Center Dosing Weight 90, kg, PRN Pain Score 7-10, Start date: 03/07/13 11:51:00, Duration: 30 day, Stop date: 04/06/13 11:50:00 docusate 100 mg, 1 cap, PO No Longer Talon [facility] Route: PO, Drug Active 2012 Medical form: CAP, BID, Center Dosing Weight 90, kg, PRN Constipation, Start date: 03/07/13 11:51:00, Duration: 30 day, Stop date: 04/06/13 11:50:00 Levemir 12 unit, 0.12 SUB-Q No Longer Chambers [facility] mL, Route: Active 2012 Medical SUB-Q, Drug Center form: INJ, ONCE, Dosing Weight 90, kg, Start date: 03/07/13 6:10:00, Stop date: 03/07/13 6:10:00 lidocaine-epi 1 ml, Route: SUB-Q No Longer Kiki [facility] [id number] SUB-Q, Drug Active 2012 Medical Form: SOLN, Center Dosing Weight 90, kg, ONCE, STAT, Start date: 03/07/13 5:18:00, Stop date: 03/07/13 5:18:00 Insulin regular 99 mL, Rate: IVPB No Longer Kiki [facility] 100 unit + Start Insulin [...] gm, 25 mL, IVP No Longer Kiki [facility] Syringe Route: IVP, Drug Active 2012 Medical Form: INJ, Center Dosing Weight 90, kg, PRN, PRN Blood Glucose Results, Start date: 03/07/13 5:13:00, Duration: 30 day, Stop date: 04/06/13 5:12:00 NS (Bolus) IV 1,000 mL, Rate: IV No Longer Kiki [facility] 1,000 mL 1,000 ml/hr, 2012 Medical Infuse over: 1 Center hr, Route: IV, Dosing Weight 90 kg, Total Volume: 1,000, Priority: STAT, Start date: 03/07/13 2:36:00, Duration: 1 doses or times, Stop date: 03/07/13 3:35:00, Bolus DoseBolus Dose magnesium 2 gm, 50 mL, IVPB No Longer Kiki [place] sulfate Route: IVPB, 2012 Medical Drug form: INJ, Center ONCE, Dosing Weight 90, kg, Start date: 03/07/13 2:35:00, Stop date: 03/07/13 2:35:00 Insulin regular 10 unit, 0.1 mL, SUB-Q No Longer Kiki [facility] Route: SUB-Q, 2012 Medical Drug form: SOLN, Center ONCE, Dosing Weight 90, kg, Priority: STAT, Start date: 03/07/13 2:16:00, Stop date: 03/07/13 2:16:00 Reglan 10 mg, 2 mL, IVP No Longer Kiki [place] Route: IVP, Drug 2012 Medical form: INJ, ONCE, Center Dosing Weight 90, kg, Priority: STAT, Start date: 03/07/13 2:16:00, Stop date: 03/07/13 2:16:00 NS 1,000 mL 1,000 mL, Rate: IV No Longer [place]on [place] 150 ml/hr, 2012 Medical Infuse over: 6.7 Center hr, Route: IV, Dosing Weight 90 kg, Total Volume: 1,000, Start date: 03/07/13 2:15:00, Duration: 30 day, Stop date: 04/06/13 2:14:00 droperidol 1.25 mg, Route: IVP No Longer Kiki [facility] IVP, ONCE, 2012 Medical Dosing Weight Center 90, kg, PRN Nausea & Vomiting, Start date: 03/07/13 0:48:00 D5W 1/2NS 1,000 1,000 mL, Rate: IV No Longer Kiki [place] mL 125 ml/hr, 2012 Medical Infuse over: 8 Center hr, Route: IV, Dosing Weight 90 kg, Total Volume: 1,000, Start date: 03/07/13 0:43:00, Duration: 30 day, Stop date: 04/06/13 0:42:00 Insulin regular 4 unit, 0.04 mL, SUB-Q No Longer Kiki [facility] Route: SUB-Q, Active 2012 Medical Drug form: SOLN, Center Sliding Scale, Dosing Weight 90, kg, PRN Blood Glucose Results, Start date: 03/07/13 0:01:00, Duration: 30 day, Stop date: 04/06/13 0:00:00 glucagon 1 mg, Route: IM, IM No Longer Kiki [facility] Drug form: Active 2012 Medical PDR/INJ, PRN, Center Dosing Weight 90, kg, PRN Blood Glucose Results, Start date: 03/07/13 0:01:00, Duration: 30 day, Stop date: 04/06/13 0:00:00 Dextrose 50% 25 gm, 50 mL, IVP No Longer Kiki [facility] Syringe Route: IVP, Drug Active 2012 Medical Form: INJ, Center Dosing Weight 90, kg, PRN, PRN Blood Glucose Results, Start date: 03/07/13 0:01:00, Duration: 30 day, Stop date: 04/06/13 0:00:00 NS 1,000 mL 1,000 mL, Rate: IV No Longer Kiki [facility] 125 ml/hr, Active 2012 Medical Infuse over: 8 Center hr, Route: IV, Dosing Weight 90 kg, Total Volume: 1,000, Start date: 03/06/13 23:21:00, Duration: 30 day, Stop date: 04/05/13 23:20:00 NS (Bolus) IV 1,000 mL, Rate: IV No Longer Kiki [facility] 1,000 mL 1,000 ml/hr, Active 2012 Medical Infuse over: 1 Center hr, Route: IV, Dosing Weight 90 kg, Total Volume: 1,000, Priority: STAT, Start date: 03/06/13 23:21:00, Duration: 1 doses or times, Stop date: 03/07/13 0:20:00, Bolus DoseBolus Dose [place] 5/325 1 tab, PO, Q6H, PO No Longer [facility] oral tablet PRN, 30 tab, Active 2012 Medical Substitution Center Allowed, Maintenance ferrous sulfate 325 mg, 1 tab, PO Active [place] [facility] 325 mg oral PO, TID, 30 tab, 2012 Medical enteric coated Substitution Center tablet Allowed, ECTAB acetaminophen-h 1 tab, PO, Q4H, PO Active [facility] ydrocodone 500 PRN, for pain, 2012 Medical mg-7.5 mg oral Substitution Center tablet Allowed, Maintenance, TAB meloxicam 7.5 7.5 mg, 1 tab, PO Active [place] [facility] mg oral tablet PO, BID, WITH 2012 Medical FOOD, 30 tab, Center Substitution Allowed, TABWITH FOOD Zocor 40 mg 40 mg, 1 tab, PO Active [place] [facility] oral tablet PO, Bedtime, 30 2012 Medical tab, Center Substitution Allowed, Maintenance ProAir HFA 90 Substitution Active [facility] mcg/inh Allowed, 2012 Medical inhalation Maintenance Center aerosol with adapter Flexeril 10 mg 10 mg, 1 tab, PO Active [place] [facility] oral tablet PO, TID, PRN, 30 2012 Medical tab, for spasm, Center Substitution Allowed, TAB Protonix 40 mg 40 mg, 1 tab, PO Active [place] [facility] oral enteric PO, BID, 30 tab, 2012 Medical coated tablet Substitution Center Allowed, ECTAB Lyrica 150 mg 150 mg, 1 cap, PO Active [place] [facility] oral capsule PO, BID, 90 cap, 2012 [facility] Substitution [place] Allowed, CAP Flagyl 500 mg 500 mg, 1 tab, PO No Longer [facility] oral tablet PO, Q6H, 30 tab, Active 2012 [facility] Substitution [place] Allowed metoclopramide 10 mg, 1 tab, PO Active [place] [facility] 10 mg oral PO, TID, 56 tab, 2012 Medical tablet Substitution Center Allowed, TAB NS (Bolus) IV 1,000 mL, Rate: IV No Longer Kiki [facility] 1,000 mL 1,000 ml/hr, Active 2012 Medical Infuse over: 1 Center hr, Route: IV, Dosing Weight 90 kg, Total Volume: 1,000, Priority: STAT, Start date: 03/06/13 21:27:00, Duration: 1 doses or times, Stop date: 03/06/13 22:26:00, Bolus DoseBolus Dose morphine 4 mg, 1 mL, IVP No Longer Kiki [facility] Sulfate Route: IVP, Drug Active 2012 Medical form: INJ, ONCE, Center Dosing Weight 90, kg, Start date: 03/06/13 21:27:00, Stop date: 03/06/13 21:27:00 Phenergan 12.5 mg, 0.5 mL, IVPB No Longer Kiki [facility] Route: IVPB, Active 2012 Medical Drug form: INJ, Center ONCE, Dosing Weight 90, kg, Priority: STAT, Start date: 03/06/13 21:26:00, Stop date: 03/06/13 21:26:00 ergocalciferol 50,000 IntlUnit, PO No Longer [place] [facility] 1 cap, Route: Active 2012 Medical PO, Drug form: Center CAP, qWeek, Dosing Weight 100, kg, Start date: 12/07/12 9:00:00, Duration: 30 day, Stop date: 01/04/13 9:00:00 erythromycin 250 mg, 1 tab, PO Active [facility] stearate 250 mg PO, Q6H, 56 tab, 2012 Medical oral tablet Substitution Center Allowed, TAB Protonix 40 mg 40 mg, 1 tab, PO Active [facility] oral enteric PO, Daily, 2012 Medical coated tablet tab, Center Substitution Allowed, ECTAB pravastatin 80 80 mg, 1 tab, PO Active [facility] mg oral tablet PO, Daily, 2012 Medical tab, Center Substitution Allowed, TAB insulin detemir 14 unit, 0.14 SUB-Q Active [facility] 100 units/mL mL, SUB-Q, 2012 Medical subcutaneous Bedtime, 100 mL, [place] solution Substitution Allowed, INJ insulin detemir 16 unit, 0.16 SUB-Q Active [facility] 100 units/mL mL, SUB-Q, 2012 Medical subcutaneous Daily, 100 mL, [place] solution Substitution Allowed, INJ Protonix 40 mg, Route: IVP No Longer [place]ando [facility] IVP, Drug form: Active 2012 Medical INJ, Daily, Center Dosing Weight 100, kg, Priority: NOW, Start date: 12/06/12 16:52:00, Duration: 30 day, Stop date: 01/05/13 9:00:00 insulin detemir 16 unit, 0.16 SUB-Q No Longer [place] mL, Route: Active 2012 Medical SUB-Q, Drug Center form: INJ, Daily, Dosing Weight 100, kg, Start date: 12/06/12 9:00:00, Stop date: 01/04/13 9:00:00 [place] 7.5/325 1 tab, Route: PO No Longer [...] 40 mEq, Route: IVPB No Longer Brando [facility] chloride IVPB, ONCE, Active 2012 Medical Dosing [...] gm, 50 mL, IVP No Longer Brando [place] Syringe Route: IVP, Drug Active 2012 Medical Form: INJ, Center Dosing Weight 100, kg, PRN, PRN Blood Glucose Results, Start date: 12/04/12 7:48:00, Duration: 30 day, Stop date: 01/03/13 7:47:00 glucagon 1 mg, Route: IM, IM No Longer [place]ando [place] Drug form: Active 2012 Medical PDR/INJ, PRN, Center Dosing Weight 100, kg, PRN Blood Glucose Results, Start date: 12/04/12 7:48:00, Duration: 30 day, Stop date: 01/03/13 7:47:00 insulin aspart 4 unit, 0.04 mL, SUB-Q No Longer [place] Route: SUB-Q, Active 2012 Medical Drug form: SOLN, Center Bedtime, Dosing Weight 100, kg, PRN Blood Glucose Results, Start date: 12/04/12 7:48:00, Duration: 30 day, Stop date: 01/03/13 7:47:00 Protonix 40 mg, Route: IV No Longer [place] IV, Drug form: Active 2012 Medical INJ, ONCE, Center Dosing Weight 100, kg, Start date: 12/04/12 3:12:00, Stop date: 12/04/12 3:12:00 potassium 20 mEq, 100 mL, IVPB No Longer Brando [facility] chloride Route: IVPB, Active 2012 Medical Q2H, Start date: [place] 12/03/12 8:00:00, Stop date: 12/03/12 11:00:00 potassium 40 mEq, Route: IV No Longer Brando [facility] chloride IV, ONCE, Dosing Active 2012 Medical Weight 100, kg, Center Start date: 12/03/12 7:02:00, Stop date: 12/03/12 7:02:00 NS 1,000 mL 1,000 mL, Rate: IV No Longer Brando [facility] 125 ml/hr, Active 2012 Medical Infuse over: 8 Center hr, Route: IV, kg, Total Volume: 1,000, Start date: 12/02/12 16:54:00, Duration: 30 day, Stop date: 01/01/13 16:53:00 NS (Bolus) IV 1,000 mL, Rate: IV No Longer [place] [facility] 1,000 mL 1,000 ml/hr, Active 2012 Medical Infuse over: 1 Center hr, Route: IV, kg, Total Volume: 1,000, Priority: STAT, Start date: 12/02/12 13:12:00, Duration: 1 doses or times, Stop date: 12/02/12 14:11:00, Bolus DoseBolus Dose NS (Bolus) IV 1,000 mL, Rate: IV No Longer Brando [facility] 1,000 mL 1,000 ml/hr, Active 2012 Medical Infuse over: 1 Center hr, Route: IV, kg, Total Volume: 1,000, Priority: STAT, Start date: 12/02/12 12:10:00, Duration: 1 doses or times, Stop date: 12/02/12 13:09:00, Bolus DoseBolus Dose insulin detemir 20 unit, 0.2 mL, SUB-Q No Longer [place] [facility] Route: SUB-Q, 2012 Medical Drug form: INJ, Center BID, Dosing Weight 100, kg, Start date: 12/02/12 9:00:00, Duration: 30 day, Stop date: 12/31/12 21:00:00 calcium 1,000 mg, 10 mL, IVPB No Longer [place] [facility] chloride + Route: IVPB, Active 2012 Medical Sodium Chloride ONCE, Start Center 0.9% IV 100 mL date: 12/02/12 5:08:00, Stop date: 12/02/12 5:08:00 ceftriaxone 1 gm, Route: IVPB No Longer [place] [facility] IVPB, Drug form: Active 2012 Medical PDR/INJ, Center [id number], Dosing Weight 100, kg, Start date: 12/02/12 5:00:00, Duration: 30 day, Stop date: 12/31/12 5:00:00 calcium 1,000 mg, Route: IVPB No Longer [place] [facility] gluconate IVPB, Drug form: Active 2012 Medical INJ, ONCE, Center Dosing Weight 100, kg, Start date: 12/02/12 5:00:00, Stop date: 12/02/12 5:00:00 Dextrose 50% 25 mL, Route: IVP No Longer [place] [facility] Syringe IVP, Dosing Active 2012 Medical Weight 100, kg, Center PRN, PRN Blood Glucose Results, Start date: 12/02/12 4:51:00, Duration: 30 day, Stop date: 01/01/13 4:50:00 Insulin regular 100 mL, Rate: IVPB No Longer [place] [facility] 100 unit + Start Insulin [...] 4 mg, Route: IVP No Longer [place] [facility] IVP, Drug form: Active 2012 Medical INJ, ONCE, Center Dosing Weight 100, kg, Priority: STAT, Start date: 12/02/12 4:47:00, Stop date: 12/02/12 4:47:00 normal saline 1,000 mL, Rate: IV No Longer [place] [facility] 0.9% IV 1,000 1,000 ml/hr, Active 2012 Medical mL Infuse over: 1 Center hr, Route: IV, kg, Total Volume: 1,000, Start date: 12/02/12 3:19:00, Duration: 1 doses or times, Stop date: 12/02/12 4:18:00 Insulin regular 6 unit, 0.06 mL, IV No Longer [place] [facility] Route: IV, Drug Active 2012 Medical form: [facility], Center ONCE, Dosing Weight 100, kg, Priority: STAT, Start date: 12/02/12 3:19:00, Stop date: 12/02/12 3:19:00 insulin aspart 3 unit, 0.03 mL, SUB-Q No Longer [place] [facility] Route: SUB-Q, Active 2012 Medical Drug form: SOLN, Center Bedtime, Dosing Weight 100, kg, PRN Blood Glucose Results, Start date: 12/01/12 13:23:00, Duration: 30 day, Stop date: 12/31/12 13:22:00 NS 1,000 mL 1,000 mL, Rate: IV No Longer [place] [facility] 150 ml/hr, Active 2012 Medical Infuse over: 6.7 Center hr, Route: IV, kg, Total Volume: 1,000, Priority: NOW, Start date: 12/01/12 13:10:00, Duration: 1 doses or times, Stop date: 12/01/12 19:51:00 Insulin regular 2 unit, 0.02 mL, SUB-Q No Longer Brando [facility] Route: SUB-Q, Active 2012 Medical Drug form: SOLN, Center Bedtime, Dosing Weight 100, kg, PRN Blood Glucose Results, Start date: 12/01/12 13:08:00, Duration: 30 day, Stop date: 12/31/12 13:07:00 insulin aspart 4 unit, 0.04 mL, SUB-Q No Longer Brando [facility] Route: SUB-Q, Active 2012 Medical Drug form: SOLN, Center TID-Before Meals, Dosing Weight 100, kg, PRN Blood Glucose Results, Start date: 12/01/12 13:08:00, Duration: 30 day, Stop date: 12/31/12 13:07:00 Dextrose 50% 25 gm, 50 mL, IVP No Longer Brando [facility] Syringe Route: IVP, Drug Active 2012 Medical Form: INJ, Center Dosing Weight 100, kg, PRN, PRN Blood Glucose Results, Start date: 12/01/12 13:08:00, Duration: 30 day, Stop date: 12/31/12 13:07:00 glucagon 1 mg, Route: IM, IM No Longer Brando [facility] Drug form: Active 2012 Medical [...] 16 unit, 0.16 SUB-Q No Longer Brando [facility] mL, Route: Active 2012 Medical SUB-Q, Drug Center form: INJ, Q12H, Dosing Weight 100, kg, Start date: 11/30/12 14:00:00, Duration: 30 day, Stop date: 12/30/12 9:00:00 Zofran 4 mg, 2 mL, IV No Longer [facility] Route: IV, Drug Active 2012 Medical form: INJ, Q6H, Center Dosing Weight 100, kg, PRN Nausea, Start date: 11/30/12 13:32:00, Duration: 30 day, Stop date: 12/30/12 13:31:00 insulin aspart 10 unit, 0.1 mL, SUB-Q No Longer [facility] Route: SUB-Q, Active 2012 Medical Drug form: SOLN, Center TID-Before Meals, Dosing Weight 100, kg, PRN Blood Glucose Results, Start date: 11/30/12 13:26:00, Duration: 30 day, Stop date: 12/30/12 13:25:00 Zofran 4 mg, 2 mL, IV No Longer Brando [facility] Route: IV, Drug Active 2012 Medical form: INJ, Q8H, Center Dosing Weight 100, kg, PRN Nausea, Start date: 11/30/12 11:58:00, Duration: 30 day, Stop date: 12/30/12 11:57:00 Zofran 4 mg, 2 mL, IVP No Longer [facility] Route: IVP, Drug Active 2012 Medical form: INJ, ONCE, Center Dosing Weight 100, kg, Priority: NOW, Start date: 11/30/12 11:57:00, Stop date: 11/30/12 11:57:00 potassium 2 pkt, Route: PO No Longer [facility] phosphate-sodiu PO, Drug Form: Active 2012 Medical m phosphate 250 PDR/REC, ONCE, Center mg-278 mg-164 Start date: mg oral powder 11/30/12 10:00:00, Stop date: 11/30/12 10:00:00 Dextrose 5% 1,000 mL, Rate: IV No Longer Randy [facility] with 0.45% NaCl 150 ml/hr, Active 2012 [...] heparin 5,000 unit, 1 SUB-Q No Longer [facility] mL, Route: Active 2012 Medical SUB-Q, Drug Center form: INJ, Q8H, Dosing Weight 100, kg, Start date: 11/30/12 8:30:00, Duration: 30 day, Stop date: 12/30/12 8:00:00 magnesium 2 gm, Route: IVPB No Longer [facility] Fei sulfate IVPB, Drug form: Active [...] unit, 0.1 mL, SUB-Q No Longer Lozada [facility] Route: SUB-Q, Active 2012 Medical Drug form: SOLN, Center TID-Before Meals, Dosing Weight 100, kg, PRN Blood Glucose Results, Start date: 11/30/12 7:57:00, Duration: 30 day, Stop date: 12/30/12 7:56:00 glucagon 1 mg, Route: IM, IM No Longer Lozada [facility] Drug form: Active 2012 Medical PDR/INJ, PRN, Center Dosing Weight 100, kg, PRN Blood Glucose Results, Start date: 11/30/12 7:57:00, Duration: 30 day, Stop date: 12/30/12 7:56:00 Dextrose 50% 25 gm, 50 mL, IVP No Longer Lozada [facility] Syringe Route: IVP, Drug Active 2012 Medical Form: INJ, Center Dosing Weight 100, kg, PRN, PRN Blood Glucose Results, Start date: 11/30/12 7:57:00, Duration: 30 day, Stop date: 12/30/12 7:56:00 1/2 NS 1,000 mL 1,000 mL, Rate: IV No Longer Simeon 11/30[facility] Fei 200 ml/hr, Active 2012 Medical Infuse over: 5 Center hr, Route: IV, kg, Total Volume: 1,000, Start date: 11/30/12 5:30:00, Duration: 30 day, Stop date: 12/30/12 5:29:00 heparin 5000 5,000 unit, 1 SUB-Q No Longer [facility] 11/30[facility] units/mL mL, Route: Active 2012 Medical injectable [...] mg, 1 tab, PO No Longer Aaron [facility] Route: PO, Drug Active 2012 Medical form: TAB, Center Bedtime, Dosing Weight 101.364, kg, Start date: 11/29/12 21:00:00, Duration: 30 day, Stop date: 12/28/12 21:00:00 Cymbalta 60 mg, 1 cap, PO No Longer [place] [facility] Route: PO, Drug Active 2012 Medical form: DRC, Center Bedtime, Dosing Weight 101.364, kg, Start date: 11/29/12 21:00:00, Stop date: 12/28/12 21:00:00 ceftriaxone 1 gm, Route: IVPB No Longer Brando [place] IVPB, Drug form: Active 2012 Medical PDR/INJ, Center [id number], Dosing Weight 100, kg, Start date: 11/29/12 20:00:00, Duration: 30 day, Stop date: 12/28/12 20:00:00 hydrALAZINE 5 mg, 0.25 mL, IV No Longer Brando [facility] Route: IV, Drug Active 2012 Medical form: INJ, Q4H, Center Dosing Weight 100, kg, PRN Hypertension, Start date: 11/29/12 19:42:00, Duration: 30 day, Stop date: 12/29/12 19:41:00 Phenergan 12.5 mg, 0.5 mL, IVPB No Longer Brando [facility] Route: IVPB, Active 2012 Medical Drug form: INJ, Center Q4H, Dosing Weight 100, kg, PRN Nausea & Vomiting, Start date: 11/29/12 17:56:00, Duration: 30 day, Stop date: 12/29/12 17:55:00 clonazepam 0.5 mg, 1 tab, PO No Longer Hendrix [place] Route: PO, Drug Active 2012 Medical form: [...] 1,000 mL, Rate: IV No Longer Hendrix [facility] 0.9% IV 1,000 200 ml/hr, Active 2012 Medical mL Infuse over: 5 Center hr, Route: IV, kg, Total Volume: 1,000, Start date: 11/29/12 14:41:00, Stop date: 12/29/12 14:45:00 Insulin regular 99 mL, Rate: IV No Longer Nicho [facility] 100 unit + Start Insulin Active 2012 Medical Sodium Chloride Drip Per ICU Center 0.9% IV 99 mL protocol, Route: IV, kg, Total Volume: 100, Start date: 11/29/12 12:42:00, Stop date: 12/29/12 12:41:00 Insulin regular 100 mL, Rate: IVPB No Longer Nicho 11/29[facility] 100 unit + Start Insulin Active 2012 [...] gm, 25 mL, IVP No Longer Hendrix [facility] Syringe Route: IVP, Drug Active 2012 Medical Form: INJ, Center Dosing Weight 100, kg, PRN, PRN Blood Glucose Results, Start date: 11/29/12 12:39:00, Duration: 30 day, Stop date: 12/29/12 12:38:00 Zofran 4 mg, 2 mL, IV No Longer Nicho [place] Route: IV, Drug Active 2012 Medical form: INJ, Q4H, Center Dosing Weight 100, kg, PRN as needed for nausea/vomiting, Start date: 11/29/12 9:07:00, Duration: 30 day, Stop date: 12/29/12 9:06:00 NIFEdipine 90 mg, 1 tab, PO No Longer Aaron [place] Route: PO, Drug Active 2012 Medical form: ERTAB, Center Daily, Dosing Weight 101.364, kg, Start date: 11/29/12 9:00:00, Duration: 30 day, Stop date: 12/28/12 9:00:00 clonazepam 0.5 mg, 1 tab, PO No Longer [place] Route: PO, Drug Active 2012 Medical form: TAB, TID, Center Dosing Weight 101.364, kg, Start date: 11/29/12 9:00:00, Duration: 30 day, Stop date: 12/28/12 17:00:00 lisinopril 20 mg, 1 tab, PO No Longer Aaron [facility] Route: PO, Drug Active 2012 Medical form: TAB, Q12H, Center Dosing Weight 101.364, kg, Start date: 11/29/12 9:00:00, Duration: 30 day, Stop date: 12/28/12 21:00:00 magnesium oxide 400 mg, 1 tab, PO No Longer Aaron [facility] Route: PO, Drug Active 2012 Medical form: TAB, Center Daily, Dosing Weight 101.364, kg, Start date: 11/29/12 9:00:00, Duration: 30 day, Stop date: 12/28/12 9:00:00 Effient 10 mg, 1 tab, PO No Longer [place] [facility] Route: PO, Drug Active 2012 Medical form: TAB, Center Daily, Dosing Weight 101.364, kg, Start date: 11/29/12 9:00:00, Duration: 30 day, Stop date: 12/28/12 9:00:00 Levemir 8 unit, 0.08 mL, SUB-Q No Longer [place] [facility] Route: SUB-Q, Active 2012 Medical [...] 81 mg, 1 tab, PO No Longer [place] [facility] Route: PO, Drug Active 2012 Medical form: ECTAB, Center Daily, Dosing Weight 101.364, kg, Start date: 11/29/12 9:00:00, Duration: 30 day, Stop date: 12/28/12 9:00:00 Reglan 10 mg, 2 mL, IVP No Longer Nicho [facility] Route: IVP, Drug Active 2012 [...] Active 2012 Medical Drug form: INJ, Center [id number], Dosing Weight 101.364, kg, Start date: 11/29/12 4:00:00, Duration: 30 day, Stop date: 12/28/12 4:00:00 Phenergan 12.5 mg, 0.25 IVPB No Longer Aaron [facility] mL, Route: IVPB, Active 2012 Medical Drug form: INJ, Center Q4H, Dosing Weight 101.364, kg, Start date: 11/29/12 4:00:00, Duration: 30 day, Stop date: 12/29/12 0:00:00 tramadol 50 mg 50 mg, 1 tab, PO No Longer Aaron [facility] oral tablet Route: PO, Drug [...] gm, 25 mL, IVP No Longer Aaron [facility] Syringe Route: IVP, Drug Active 2012 Medical Form: INJ, Center Dosing Weight 101.364, kg, PRN, PRN Blood Glucose Results, Start date: 11/29/12 3:26:00, Duration: 30 day, Stop date: 12/29/12 3:25:00 glucagon 1 mg, Route: IM, IM No Longer Hendrix [facility] Drug form: Active 2012 Medical PDR/INJ, PRN, Center Dosing Weight 101.364, kg, PRN Blood Glucose Results, Start date: 11/29/12 3:26:00, Duration: 30 day, Stop date: 12/29/12 3:25:00 acetaminophen 650 mg, 20.3 mL, PO No Longer Hendrix [facility] Route: PO, Drug Active 2012 Medical form: LIQ, Q4H, Center Dosing Weight 101.364, kg, PRN Pain 1-3/Temp > 100.4 F, Start date: 11/29/12 3:25:00, Duration: 30 day, Stop date: 12/29/12 3:24:00 docusate 100 mg, 1 cap, PO No Longer Hendrix [facility] Route: PO, Drug Active 2012 Medical form: CAP, BID, Center Dosing Weight 101.364, kg, PRN Constipation, Start date: 11/29/12 3:25:00, Duration: 30 day, Stop date: 12/29/12 3:24:00 D5W 1/2NS 1,000 1,000 mL, Rate: IV No Longer [place] [facility] mL 75 ml/hr, Infuse Active 2012 Medical over: 13.3 hr, Center Route: IV, kg, Total Volume: 1,000, Start date: 11/29/12 3:21:00, Duration: 30 day, Stop date: 12/29/12 3:20:00 NS 0.45% IV 1,000 mL, Rate: IV No Longer [place] [facility] 1000 mL 125 ml/hr, Active 2012 Medical Infuse over: 8 Center hr, Route: IV, Dosing Weight 101.364 kg, Total Volume: 1,000, Start date: 11/29/12 3:18:00, Duration: 30 day, Stop date: 12/29/12 3:17:00 Reglan 10 mg, 2 mL, IVP No Longer [facility] Route: IVP, Drug Active 2012 Medical form: INJ, ONCE, Center Dosing Weight 101.364, kg, Priority: STAT, Start date: 11/29/12 2:31:00, Stop date: 11/29/12 2:31:00 Zofran 8 mg, Route: IVP No Longer [facility] IVP, Drug form: Active 2012 [...] mg, 0.5 mL, IVPB No Longer [place] 11/29[facility] Route: IVPB, Active 2012 Medical Drug form: INJ, Center ONCE, Dosing Weight 101.364, kg, Priority: STAT, Start date: 11/29/12 0:56:00, Stop date: 11/29/12 0:56:00 Zofran 4 mg, 2 mL, IVP No Longer [place] 11/29[facility] Fei Route: IVP, Drug Active 2012 Medical form: INJ, ONCE, Center Dosing Weight 101.364, kg, Priority: STAT, Start date: 11/28/12 23:49:00, Stop date: 11/28/12 23:49:00 Phenergan 12.5 mg, 0.5 mL, IVPB No Longer [place] 11/29[facility] Route: IVPB, Active 2012 Medical Drug form: INJ, Center ONCE, Dosing Weight 101.364, kg, Priority: STAT, Start date: 11/28/12 19:29:00, Stop date: 11/28/12 19:29:00 Zofran 4 mg, 2 mL, IVP No Longer [place] 11/29[facility] Route: IVP, Drug Active 2012 Medical form: [...] mg, 20 mL, IVPB No Longer Markus [facility] gluconate + Route: IVPB, Active 2012 Medical Sodium Chloride ONCE, Dosing Center 0.9% IV 80 mL Weight 103.21, kg, Start date: 11/17/12 11:02:00, Stop date: 11/17/12 11:02:00 magnesium 2 gm, 50 mL, IVPB No Longer Markus [facility] sulfate Route: IVPB, Active 2012 Medical Drug form: INJ, Center Q2H, Dosing Weight 103.21, kg, Total dose=4 gm, Start date: 11/17/12 10:00:00, Duration: 2 doses or times, Stop date: 11/17/12 12:00:00 aspirin 81 mg, 1 tab, PO No Longer Markus [facility] Route: PO, Drug Active 2012 Medical form: ECTAB, Center Daily, Dosing Weight 100, kg, Start date: 11/17/12 9:00:00, Duration: 30 day, Stop date: 12/16/12 9:00:00 simvastatin 40 mg, 1 tab, PO No Longer Markus [facility] Route: PO, Drug Active 2012 Medical form: TAB, Center Daily, Dosing Weight 100, kg, Start date: 11/17/12 9:00:00, Duration: 30 day, Stop date: 12/16/12 9:00:00 prasugrel 10 mg, 1 tab, PO No Longer Markus [facility] Route: PO, Drug Active 2012 Medical form: TAB, Center Daily, Dosing Weight 100, kg, Start date: 11/17/12 9:00:00, Duration: 30 day, Stop date: 12/16/12 9:00:00 NIFEdipine 90 mg, 1 tab, PO No Longer Markus [facility] Route: PO, Drug Active 2012 Medical form: ERTAB, Center Daily, Dosing Weight 100, kg, Start date: 11/17/12 9:00:00, Duration: 30 day, Stop date: 12/16/12 9:00:00 Toprol-XL 100 100 mg, 1 tab, PO No Longer Markus [facility] mg oral tablet, Route: PO, Drug Active 2012 Medical extended form: ERTAB, Center release Daily, Start date: 11/17/12 9:00:00, Duration: 30 day, Stop date: 12/16/12 9:00:00 magnesium oxide 400 mg, 1 tab, PO No Longer Markus [facility] Route: PO, Drug Active 2012 Medical form: TAB, Center Daily, Dosing Weight 100, kg, Start date: 11/17/12 9:00:00, Duration: 30 day, Stop date: 12/16/12 9:00:00 insulin detemir 15 unit, 0.15 SUB-Q No Longer Markus [facility] mL, Route: Active 2012 Medical SUB-Q, Drug Center form: INJ, Daily, Dosing Weight 100, kg, Start date: 11/17/12 9:00:00, Duration: 30 day, Stop date: 12/16/12 9:00:00 Zofran 8 mg, 4 mL, IV No Longer Markus [facility] Route: IV, Drug Active 2012 Medical form: INJ, Q4H, Center Dosing Weight 103.21, kg, PRN as needed for nausea/vomiting, Start date: 11/17/12 8:56:00, Duration: 30 day, Stop date: 12/17/12 8:55:00 Reglan 10 mg 10 mg, 1 tab, PO No Longer Markus [facility] oral tablet Route: PO, Drug Active 2012 Medical form: TAB, Center TID-Before Meals, Dosing Weight 100, kg, Start date: 11/17/12 7:30:00, Duration: 30 day, Stop date: 12/16/12 16:30:00 insulin aspart 4 unit, 0.04 mL, SUB-Q No Longer [facility] Route: SUB-Q, Active 2012 Medical Drug form: SOLN, Center TID-Before Meals, Dosing Weight 100, kg, Start date: 11/17/12 7:30:00, Duration: 30 day, Stop date: 12/16/12 16:30:00 Cymbalta 120 mg, 2 cap, PO No Longer [facility] Route: PO, Drug Active 2012 Medical form: DRC, Center Bedtime, Dosing Weight 100, kg, Start date: 11/16/12 21:00:00, Duration: 30 day, Stop date: 12/15/12 21:00:00 lisinopril 20 mg, 1 tab, PO No Longer [facility] Route: PO, Drug Active 2012 Medical form: TAB, Q12H, Center Dosing Weight 100, kg, Start date: 11/16/12 21:00:00, Duration: 30 day, Stop date: 12/16/12 9:00:00 insulin detemir 12 unit, 0.12 SUB-Q No Longer Markus [facility] mL, Route: Active 2012 Medical SUB-Q, Drug Center form: INJ, Bedtime, Dosing Weight 100, kg, Start date: 11/16/12 21:00:00, Duration: 30 day, Stop date: 12/15/12 21:00:00 clonazepam 0.5 mg, 1 tab, PO No Longer Markus [facility] Route: PO, Drug Active 2012 Medical form: TAB, TID, Center Dosing Weight 100, kg, Start date: 11/16/12 20:30:00, Duration: 30 day, Stop date: 12/16/12 17:00:00 Neutra-Phos 1 pkt, Route: PO No Longer Markus [facility] PO, Drug Form: Active 2012 Medical PDR/REC, Dosing Center Weight 100, kg, TID-Before Meals, Start date: 11/16/12 20:30:00, Duration: 30 day, Stop date: 12/16/12 16:30:00 enoxaparin 40 mg, 0.4 mL, SUB-Q No Longer Markus [facility] Route: SUB-Q, Active 2012 Medical Drug form: INJ, Center [id number], Dosing Weight 100, kg, Start date: 11/16/12 [...] unit, 0.1 mL, SUB-Q No Longer Markus [facility] Route: SUB-Q, Active 2012 Medical Drug form: SOLN, Center TID-Before Meals, Dosing Weight 100, kg, PRN Blood Glucose Results, Start date: 11/16/12 18:10:00, Duration: 30 day, Stop date: 12/16/12 18:09:00 Dextrose 50% 12.5 gm, 25 mL, IVP No Longer Markus [facility] Syringe Route: IVP, Drug Active 2012 Medical Form: INJ, Center Dosing Weight 100, kg, PRN, PRN Blood Glucose Results, Start date: 11/16/12 18:10:00, Duration: 30 day, Stop date: 12/16/12 18:09:00 glucagon 1 mg, Route: IM, IM No Longer Markus [facility] Drug form: Active 2012 Medical PDR/INJ, PRN, Center Dosing Weight 100, kg, PRN Blood Glucose Results, Start date: 11/16/12 18:10:00, Duration: 30 day, Stop date: 12/16/12 18:09:00 [place] 5/325 1 tab, Route: PO No Longer [place] oral tablet PO, Drug Form: Active 2012 Medical TAB, Dosing Center Weight 100, kg, Q6H, PRN as needed for pain, Start date: 11/16/12 18:07:00, Duration: 30 day, Stop date: 12/16/12 18:06:00 tramadol 50 mg 50 mg, 1 tab, PO No Longer Markus [facility] oral tablet Route: PO, Drug [...] 8 mg, 2 tab, PO No Longer [place] [facility] Route: PO, Drug Active 2012 Medical form: TABDIS, Center Q8H, Dosing Weight 100, kg, PRN Nausea & Vomiting, Start date: 11/16/12 18:01:00, Stop date: 12/16/12 18:00:00, nauea ondansetron 8 8 mg, 1 tab, PO, PO Active [place] [facility] mg oral tablet, Q8H, PRN, 2012 Medical disintegrating Dissolve under Center tongue, 10 tab, as needed for nausea/vomiting, Substitution AllowedDissolve under tongue Effient 10 mg 10 mg, 1 tab, PO Active [facility] oral tablet PO, Daily, 30 2012 Medical tab, Center Substitution Allowed, TAB tramadol 50 mg 50 mg, 1 tab, PO Active [place] oral tablet PO, Q4H, PRN, 60 2012 Medical tab, for pain, Center Substitution Allowed, TAB clonazepam 0.5 0.5 mg, 1 tab, PO Active [place] mg oral tablet PO, TID, 2012 [...] Duration: 1 doses or times, Dose=2.2ml/kg, Max [id number] -- "To be infused by Radiology Staff ONLY"Dose=2.2ml/ kg, Max [id number] -- "To be infused by Radiology Staff [...] 1 mg, 0.5 mL, IVP No Longer [place] [facility] Route: IVP, Drug Active 2012 Medical [...] mg, 4 tab, CHEW No Longer Rehrer [facility] Route: CHEW, Active 2012 Medical Drug form: Center CHEWTAB, ONCE, Dosing Weight 100, kg, Priority: STAT, Start date: 11/16/12 13:29:00, Stop date: 11/16/12 13:29:00 Zofran 8 mg, 4 mL, IVP No Longer Rehrer [facility] Route: IVP, Drug Active 2012 Medical form: INJ, ONCE, Center Dosing Weight 100, kg, Priority: STAT, Start date: 11/16/12 13:17:00, Stop date: 11/16/12 13:17:00 Saline Flush 5 mL, Route: IVP No Longer Rehrer [facility] 0.9% IVP, Drug Form: Active 2012 Medical INJ, Dosing Center Weight 100, kg, Q8H, PRN Line Flush, Start date: 11/16/12 13:16:00, Duration: 30 day, Stop date: 12/16/12 13:15:00, Administer at least once every 8 hoursAdminister at least once every 8 hours Reglan 10 mg 10 mg, 1 tab, PO Active [facility] oral tablet PO, TID-Before 2012 Medical Meals, PRN, 42 Center tab, nausea, Substitution Allowed, TAB [place] 5/325 1 tab, PO, Q6H, PO Active [facility] oral tablet PRN, 10 tab, 2012 Medical Pain, Center Substitution Allowed, Maintenance, TAB ondansetron 8 8 mg, 1 tab, PO, PO Active [facility] [place] mg oral tablet, Q8H, PRN, 60 2012 Medical disintegrating tab, 1, 1, Center Nausea, Substitution Allowed, TABDIS insulin detemir 12 unit, 0.12 SUB-Q Active [facility] 100 units/mL mL, SUB-Q, 2012 Medical subcutaneous Bedtime, 4 mL, Center solution Substitution Allowed, INJ insulin detemir 15 unit, 0.15 SUB-Q Active [facility] [place] 100 units/mL mL, SUB-Q, 2012 Medical subcutaneous Daily, 5 mL, Center solution Substitution Allowed, INJ Zofran 4 mg, 1 tab, PO No Longer [facility] [place] Route: PO, Drug Active 2012 Medical form: TAB, Q8H, Center Dosing Weight 100, kg, Start date: 11/14/12 16:00:00, Duration: 30 day, Stop date: 12/14/12 8:00:00 Reglan 10 mg 10 mg, 1 tab, PO No Longer [facility] [place] oral tablet Route: PO, Drug Active 2012 Medical form: TAB, Center TID-Before Meals, Dosing Weight 100, kg, Start date: 11/14/12 11:30:00, Duration: 30 day, Stop date: 12/14/12 7:30:00 calcium 2,000 mg, 20 mL, IVPB No Longer [place] [facility] gluconate + Route: IVPB, Active 2012 Medical Sodium Chloride Drug form: INJ, Center 0.9% IV 100 mL Q2H, Dosing Weight 100, kg, Total [id number] mg, Start date: 11/14/12 8:00:00, Duration: 2 doses or times, Stop date: 11/14/12 10:00:00 magnesium 2 gm, 50 mL, IVPB No Longer [facility] sulfate Route: IVPB, Active 2012 [...] mEq, 100 mL, IVPB No Longer [facility] chloride Route: IVPB, Active 2012 Medical Drug form: INJ, Center ONCE, Dosing Weight 100, kg, Total dose=20mEq, Start date: 11/13/12 7:58:00, Duration: 1 doses or times, Stop date: 11/13/12 7:58:00, For K=3.5 - 3.9 mEq/LFor K=3.5 - 3.9 mEq/L calcium 1,000 mg, 10 mL, IVPB No Longer [facility] gluconate + Route: IVPB, Active 2012 Medical Sodium Chloride ONCE, Dosing Center 0.9% IV 50 mL Weight 100, kg, Start date: 11/13/12 7:56:00, Stop date: 11/13/12 7:56:00 Reglan 10 mg, 2 mL, IVP No Longer [facility] Route: IVP, Drug Active 2012 Medical form: INJ, Center Before Meals & Bedtime, Dosing Weight 100, kg, Start date: 11/12/12 16:30:00, Duration: 30 day, Stop date: 12/12/12 11:30:00 [place] 5/325 1 tab, Route: PO No Longer [facility] [place] oral tablet PO, Drug Form: Active jaida 2012 Medical TAB, Dosing Center Weight 100, kg, Q6H, PRN Pain, Start date: 11/12/12 16:07:00, Duration: 30 day, Stop date: 12/12/12 16:06:00 Reglan 10 mg, Route: IVP No Longer Aristides [facility] IVP, Q6H, Dosing Active 2012 Medical Weight 100, kg, Center PRN Nausea & Vomiting, Start date: 11/12/12 12:35:00, Duration: 30 day, Stop date: 12/12/12 12:34:00 insulin detemir 15 unit, Route: SUB-Q No Longer [place] [facility] SUB-Q, ONCE, Active 2012 Medical Dosing Weight Center 100, kg, Priority: NOW, Start date: 11/12/12 10:38:00, Stop date: 11/12/12 10:38:00 heparin 7,500 unit, 1.5 SUB-Q No Longer Cardoza [facility] mL, Route: Active 2012 Medical SUB-Q, Drug Center form: INJ, Q8H, Start date: 11/11/12 18:00:00, Duration: 30 day, Stop date: 12/11/12 16:00:00 Levemir FlexPen 15 unit, 0.15 SUB-Q No Longer [place] 11/11[facility] mL, Route: Active 2012 Medical SUB-Q, Drug Center form: INJ, Daily, Dosing Weight 100, kg, Start date: 11/11/12 10:00:00, Stop date: 12/11/12 9:00:00 magnesium 2 gm, 50 mL, IVPB No Longer [facility] sulfate Route: IVPB, Active 2012 Medical Drug form: INJ, Center ONCE, Dosing Weight 100, kg, Total dose=2 gm, Start date: 11/11/12 9:04:00, Duration: 1 doses or times, Stop date: 11/11/12 9:04:00 insulin detemir 20 unit, 0.2 mL, SUB-Q No Longer [place] [facility] Route: SUB-Q, Active 2012 Medical Drug form: INJ, Center Daily, Dosing Weight 100, kg, Start date: 11/11/12 9:00:00, Stop date: 12/10/12 9:00:00 Toradol 15 15 mg, 1 mL, IV No Longer [facility] mg/mL Route: IV, Drug 2012 Medical injectable form: INJ, ONCE, Center solution Dosing Weight 100, kg, Start date: 11/11/12 0:56:00, Stop date: 11/11/12 0:56:00 Zofran 4 mg, 2 mL, IV [place] Long[place] [facility] Route: IV, Drug Active 2012 Medical form: INJ, Q8H, Center Dosing Weight 100, kg, Start date: 11/11/12 0:00:00, Duration: 30 day, Stop date: 12/10/12 16:00:00 normal saline 1,000 mL, Rate: IV No Longer [facility] 0.9% IV 1,000 100 ml/hr, Active 2012 Medical mL Infuse over: 10 Center hr, Route: IV, kg, Total Volume: 1,000, Start date: 11/10/12 20:17:00, Duration: 30 day, Stop date: 12/10/12 20:16:00 Sodium Chloride 1,000 mL, Rate: IV No Longer [facility] [place] 0.9% (Bolus) IV 1,000 ml/hr, Active 2012 Medical 1,000 mL Infuse over: 1 Center hr, Route: IV, kg, Total Volume: 1,000, Priority: STAT, Start date: 11/10/12 20:17:00, Duration: 1 doses or times, Stop date: 11/10/12 21:16:00, Bolus DoseBolus Dose insulin detemir 10 unit, 0.1 mL, SUB-Q No Longer Ada [facility] Route: SUB-Q, Active 2012 Medical Drug form: INJ, Center ONCE, Dosing Weight 100, kg, Priority: NOW, Start date: 11/10/12 11:40:00, Stop date: 11/10/12 11:40:00 Zofran ODT 4 mg, 1 tab, PO No Longer Juanjo [place] Route: PO, Drug Active 2012 Medical form: TABDIS, Center Q8H, Dosing Weight 100, kg, PRN Nausea, Start date: 11/10/12 11:04:00, Duration: 30 day, Stop date: 12/10/12 11:03:00 Phenergan 12.5 mg, 0.5 mL, IM No Longer Ahmad [place] Route: IM, Drug Active 2012 Medical form: INJ, PRN, Center Dosing Weight 100, kg, PRN as needed for nausea/vomiting, Start date: 11/10/12 10:00:00, Duration: 30 day, Stop date: 12/10/12 10:59:00 insulin detemir 16 unit, 0.16 SUB-Q No Longer Maggin [place] mL, Route: Active 2012 Medical SUB-Q, Drug Center form: INJ, ONCE, Dosing Weight 100, kg, Start date: 11/10/12 0:20:00, Stop date: 11/10/12 0:20:00 NovoLog 6 unit, 0.06 mL, SUB-Q No Longer Ada [facility] Route: SUB-Q, Active 2012 Medical Drug form: SOLN, Center TID-Before Meals, Dosing Weight 100, kg, Start date: 11/09/12 16:30:00, Duration: 30 day, Stop date: 12/09/12 11:30:00 insulin aspart 7 unit, 0.07 mL, SUB-Q No Longer Loida [facility] Route: SUB-Q, Active 2012 Medical Drug form: SOLN, Center ONCE, Dosing Weight 100, kg, Start date: 11/09/12 13:24:00, Stop date: 11/09/12 13:24:00 insulin detemir 20 unit, 0.2 mL, SUB-Q No Longer Juanjo [facility] Route: SUB-Q, Active 2012 Medical Drug form: INJ, Center Daily, Dosing Weight 100, kg, Start date: 11/09/12 9:00:00, Duration: 30 day, Stop date: 12/08/12 9:00:00 morphine 1 mg, 0.5 mL, IV No Longer Chavez [facility] Sulfate Route: IV, Drug Active 2012 Medical form: INJ, ONCE, Center Dosing Weight 100, kg, Start date: 11/09/12 5:28:00, Stop date: 11/09/12 5:28:00 insulin detemir 12 unit, 0.12 SUB-Q No Longer Olejarski [facility] mL, Route: Active 2012 Medical SUB-Q, Drug Center form: INJ, Bedtime, Dosing Weight 100, kg, Start date: 11/08/12 21:00:00, Stop date: 12/07/12 21:00:00 morphine 2 mg, 1 mL, IVP No Longer Quintanilla [facility] Sulfate Route: IVP, Drug Active 2012 Medical form: INJ, ONCE, Center Dosing Weight 100, kg, Start date: 11/08/12 18:34:00, Stop date: 11/08/12 18:34:00 ampicillin + 1,500 mg, Route: IVPB No Longer Aristides [facility] Sodium Chloride IVPB, Drug form: Active 2012 Medical 0.9% IV 100 mL PDR/INJ, [id number], Center Dosing Weight 100, kg, Start date: 11/08/12 18:00:00, Duration: 30 day, Stop date: 12/08/12 12:00:00 ciprofloxacin 500 mg, 1 tab, PO No Longer Maggin [facility] Route: PO, Drug Active 2012 Medical form: TAB, Center [id number], Dosing Weight 100, kg, Start date: 11/08/12 17:00:00, Duration: 30 day, Stop date: 12/08/12 5:00:00 Rocephin 1 gm, Route: IVPB No Longer Janet [facility] IVPB, Drug form: Active 2012 Medical PDR/INJ, ONCE, Center Dosing Weight 100, kg, Start date: 11/08/12 13:11:00, Stop date: 11/08/12 13:11:00 insulin aspart 2 unit, 0.02 mL, SUB-Q No Longer Domingojapowerki [facility] Route: SUB-Q, Active 2012 Medical Drug form: SOLN, Center TID-Before Meals, Dosing Weight 100, kg, PRN Blood Glucose Results, Start date: 11/08/12 10:45:00, Duration: 30 day, Stop date: 12/08/12 10:44:00 insulin aspart 2 unit, 0.02 mL, SUB-Q No Longer Olejapowerki [facility] Route: SUB-Q, Active 2012 Medical Drug form: SOLN, Center TID-Before Meals, Dosing Weight 100, kg, PRN Blood Glucose Results, Start date: 11/07/12 18:47:00, Duration: 30 day, Stop date: 12/07/12 18:46:00 magnesium 2 gm, 50 mL, IVPB No Longer Maggin [facility] sulfate Route: IVPB, Active 2012 Medical Drug form: INJ, Center Q2H, Dosing Weight 100, kg, Start date: 11/07/12 8:00:00, Duration: 2 doses or times, Stop date: 11/07/12 10:00:00, For Mg=1.5 - 1.7 mg/dLFor Mg=1.5 - 1.7 mg/dL magnesium 2 gm, Route: IVPB No Longer Loida [facility] sulfate IVPB, Drug form: Active 2012 Medical SOLN, ONCE, Center Dosing Weight 100, kg, Start date: 11/07/12 7:42:00, Duration: 1 doses or times, Stop date: 11/07/12 7:42:00, For Mg=1.8 - 2 mg/dLFor Mg=1.8 - 2 mg/dL Protonix 40 mg, Route: IVP No Longer Quintanilla [facility] IVP, Drug form: Active 2012 Medical INJ, Before Center Breakfast, Dosing Weight 100, kg, Start date: 11/07/12 7:30:00, Duration: 30 day, Stop date: 12/06/12 7:30:00 insulin aspart 10 unit, 0.1 mL, SUB-Q No Longer Ahmad [facility] Route: SUB-Q, 2012 Medical Drug form: [facility], [place] ONCE, Dosing Weight 100, kg, Start date: 11/06/12 13:32:00, Stop date: 11/06/12 13:32:00 adenosine 84 mg, Route: IVP No Longer Ahmad [facility] IVP, ONCE, Active 2012 Medical Dosing Weight Center 100, kg, Priority: Routine, Start date: 11/06/12 10:20:00, Stop date: 11/06/12 10:20:00 Insulin regular 10 unit, 0.1 mL, SUB-Q No Longer Maggin [facility] Route: SUB-Q, 2012 Medical Drug form: [facility], [place] ONCE, Dosing Weight 100, kg, Start date: 11/06/12 9:47:00, Stop date: 11/06/12 9:47:00 insulin aspart 10 unit, 0.1 mL, SUB-Q No Longer Maggin [facility] Route: SUB-Q, 2012 Medical Drug form: [facility] ONCE, Dosing Weight 100, kg, Start date: 11/06/12 9:43:00, Stop date: 11/06/12 9:43:00 Lactated 1,000 mL, Rate: IV No Longer Maggin [facility] Ringers (Bolus) 1,000 ml/hr, Active 2012 Medical [...] mg, 2 mL, IVP No Longer Aristides [facility] Route: IVP, Drug Active 2012 Medical form: INJ, Q6H, Center Dosing Weight 100, kg, PRN Nausea & Vomiting, Start date: 11/06/12 1:49:00, Duration: 30 day, Stop date: 12/06/12 1:48:00 Benadryl 25 mg, 0.5 mL, IV No Longer Kennedy [facility] Route: IV, Drug Active 2012 Medical form: INJ, Q4H, Center Dosing Weight 100, kg, PRN as needed for nausea/vomiting, Start date: 11/06/12 1:44:00, Duration: 30 day, Stop date: 12/06/12 1:43:00 Phenergan 12.5 mg, 0.5 mL, IVPB No Longer Kennedy [facility] Route: IVPB, Active 2012 Medical Drug form: INJ, Center Q6H, Dosing Weight 100, kg, PRN Nausea & Vomiting, Start date: 11/06/12 1:43:00, Stop date: 12/06/12 1:42:00 Benadryl 25 mg, 1 cap, PO No Longer Kennedy [facility] Route: PO, Drug Active 2012 Medical form: CAP, TID, Center Dosing Weight 100, kg, PRN Nausea, Start date: 11/06/12 0:31:00, Duration: 30 day, Stop date: 12/06/12 0:30:00 labetalol 20 mg, 4 mL, IVP No Longer Maggin [facility] Route: IVP, Drug Active 2012 Medical form: INJ, ONCE, Center Dosing Weight 100, kg, Start date: 11/06/12 0:25:00, Stop date: 11/06/12 0:25:00 simvastatin 40 mg, 1 tab, PO No Longer Maggin [facility] Route: PO, Drug Active 2012 Medical form: TAB, Center Bedtime, Dosing Weight 100, kg, Start date: 11/05/12 23:00:00, Duration: 30 day, Stop date: 12/05/12 21:00:00 lisinopril 20 mg, 1 tab, PO No Longer Maggin [facility] Route: PO, Drug Active 2012 Medical form: TAB, Q12H, Center Dosing Weight 100, kg, Start date: 11/05/12 23:00:00, Duration: 30 day, Stop date: 12/05/12 21:00:00 insulin detemir 20 unit, 0.2 mL, SUB-Q No Longer Olejarski [facility] Route: SUB-Q, Active 2012 Medical Drug form: INJ, Center Q12H, Dosing Weight 100, kg, Start date: 11/05/12 23:00:00, Stop date: 12/05/12 21:00:00 magnesium oxide 400 mg, 1 tab, PO Active [place] 400 mg oral PO, Daily, 2012 Medical tablet tab, Center Substitution Allowed, TAB metoprolol 100 100 mg, 1 tab, PO Active [facility] mg oral tablet, PO, Daily, 2012 Medical extended tab, Center release Substitution Allowed NIFEdipine 90 90 mg, 1 tab, PO Active [facility] mg oral tablet, PO, Daily, 30 2012 Medical extended tab, Center release Substitution Allowed, ERTAB prasugrel 10 mg 10 mg, 1 tab, PO Active [facility] oral tablet PO, Daily, 2012 Medical tab, Center Substitution Allowed, TAB Cymbalta 60 mg, Daily, Active [facility] Substitution 2012 Medical Allowed Center tramadol 50 mg 50 mg, 1 tab, PO No Longer Maggin [facility] oral tablet Route: PO, Drug Active 2012 Medical form: TAB, Q4H, Center Dosing Weight 100, kg, PRN For Pain, Start date: 11/05/12 22:39:00, Duration: 30 day, Stop date: 12/05/12 22:38:00 promethazine 25 mg, 1 tab, PO No Longer Kennedy [facility] Route: PO, Drug Active 2012 [...] 5 ml, Route: IVP No Longer Maggin [place] 0.9% IVP, Drug Form: Active 2012 Medical INJ, Dosing Center Weight 104.545, kg, PRN, PRN Line Flush, Start date: 11/05/12 22:14:00, Duration: 30 day, Stop date: 12/05/12 23:13:00 Sodium Chloride 500 mL, Rate: IV No Longer Maggin [place] 0.9% (Bolus) IV 2,000 ml/hr, Active 2012 Medical 500 mL Infuse over: 15 Center minutes, Route: IV, kg, Total Volume: 500, Priority: STAT, Start date: 11/05/12 22:14:00, Duration: 1 doses or times, Stop date: 11/05/12 22:28:00 nitroglycerin 0.4 mg, 1 tab, SL No Longer Maggin [facility] SL Tab Route: SL, Drug Active 2012 Medical form: TAB, Center Q5Min, Dosing Weight 104.545, kg, PRN Chest Pain, Start date: 11/05/12 22:14:00, Duration: 3 doses or times, Stop date: Limited # of times Phenergan 12.5 mg, Route: IVPB No Longer Dilan [place] IVPB, ONCE, Active 2012 Medical Dosing Weight Center 104.545, kg, Priority: STAT, Start date: 11/05/12 22:05:00, Stop date: 11/05/12 22:05:00 Phenergan 12.5 mg, 0.5 mL, IVPB No Longer Dilan [facility] Route: IVPB, Active 2012 Medical Drug form: INJ, Center ONCE, Dosing Weight 104.545, kg, Priority: STAT, Start date: 11/05/12 21:08:00, Stop date: 11/05/12 21:08:00 carvedilol 12.5 mg, 1 tab, PO No Longer Dilan [facility] Route: PO, Drug Active 2012 Medical form: TAB, ONCE, Center Dosing Weight 104.545, kg, Start date: 11/05/12 19:20:00, Stop date: 11/05/12 19:20:00 Effient 10 mg, 1 tab, PO No Longer Dilan [facility] Route: PO, Drug Active 2012 Medical form: TAB, ONCE, Center Dosing Weight 104.545, kg, Start date: 11/05/12 19:16:00, Stop date: 11/05/12 19:16:00 ondansetron 4 mg, 2 mL, IVP No Longer Dilan [facility] Route: IVP, Drug Active 2012 Medical form: INJ, ONCE, Center Dosing Weight 104.545, kg, Priority: STAT, Start date: 11/05/12 19:14:00, Stop date: 11/05/12 19:14:00 aspirin 324 mg, 4 tab, PO No Longer Dilan [facility] Route: PO, Drug Active 2012 [...] 100 units/mL SUB-Q, 2012 Medical subcutaneous TID-Before [place] solution Meals, 1 vial, 2, 2, Substitution Allowed, SOLN insulin detemir 16 unit, 0.16 SUB-Q Active [place] 100 units/mL mL, SUB-Q, Q12H, 2012 Medical subcutaneous 1 vial, 2, 2, Center solution Substitution Allowed, INJ tramadol 50 mg 50 mg, 1 tab, PO Active Kennedy [place] oral tablet PO, Q4H, PRN, 30 2012 Medical tab, as needed Center for pain, Substitution Allowed, TAB simvastatin 40 40 mg, 1 tab, PO Active Kennedy 10/31/ [place] mg oral tablet PO, Bedtime, 30 2012 Medical tab, 1, 1, Center Substitution Allowed, Maintenance, TAB promethazine 25 25 mg, 1 tab, PO Active Kennedy [place] mg oral tablet PO, Q6H, PRN, 60 2012 Medical tab, 1, 1, Center Nausea & Vomiting, Substitution Allowed, TAB prasugrel 10 mg 10 mg, 1 tab, PO Active Kennedy [place] oral tablet PO, Daily, 30 2012 Medical tab, 1, 1, Center Substitution Allowed, TAB ondansetron 8 8 mg, 1 tab, PO, PO Active Kennedy 10/31/ [place] mg oral tablet, Q8H, PRN, 60 2012 Medical disintegrating tab, 1, 1, Center Nausea, Substitution Allowed, TABDIS NIFEdipine 90 90 mg, 1 tab, PO Active Kennedy 10/31/ [place] mg oral tablet, PO, Daily, 30 2012 Medical extended tab, 1, 1, Center release Substitution Allowed, ERTAB Toprol-XL 100 100 mg, 1 tab, PO Active Kennedy 10/31/ [facility] mg oral tablet, PO, Daily, 30 2012 Medical extended tab, 1, 1, Center release Substitution Allowed, ERTAB magnesium oxide 400 mg, 1 tab, PO Active Kennedy [place] 400 mg oral PO, Daily, 30 2012 Medical tablet tab, 1, 1, Center Substitution Allowed, TAB lisinopril 20 20 mg, 1 tab, PO Active Kennedy [facility] mg oral tablet PO, Q12H, 60 2012 Medical tab, 1, 1, Center Substitution Allowed, TAB aspirin 81 mg 81 mg, 1 tab, PO Active Kennedy [facility] tablet, enteric PO, Daily, 30 2012 Medical coated tab, 1, 1, Center Substitution Allowed, ECTAB insulin aspart 6 unit, 0.06 mL, SUB-Q No Longer Manlapaz [place] Route: SUB-Q, Active 2012 Medical Drug form: NIRU, [place] TID-Before Meals, Dosing Weight 78.2, kg, PRN Blood Glucose Results, Start date: 10/31/12 8:40:00, Duration: 30 day, Stop date: 11/30/12 8:39:00 Phenergan 25 mg, 1 tab, PO No Longer Steward [place] Route: PO, Drug Active 2012 Medical form: [...] 50 mg, 1 tab, PO No Longer Kennedy Fe[place] oral tablet Route: PO, Drug Active 2012 Medical form: TAB, Q4H, Center Dosing Weight 78.2, kg, PRN as needed for pain, Start date: 10/29/12 9:45:00, Duration: 30 day, Stop date: 11/28/12 9:44:00 Toradol 15 15 mg, 0.5 mL, IV No Longer Kennedy [facility] mg/mL Route: IV, Drug Active 2012 Medical injectable form: INJ, ONCE, Center solution Dosing Weight 78.2, kg, Start date: 10/29/12 6:54:00, Stop date: 10/29/12 6:54:00 Toradol 15 15 mg, 0.5 mL, IV No Longer Kennedy [facility] mg/mL Route: IV, Drug Active [...] SUB-Q, Active 2012 Medical Drug form: SOLN, [place] TID-Before Meals, Start date: 10/28/12 7:30:00, Stop [...] labetalol 20 mg, Route: IVP No Longer Floyd [facility] IVP, Drug form: Active 2012 Medical INJ, ONCE, Center Dosing Weight 78.2, kg, Start date: 10/27/12 19:28:00, Stop date: 10/27/12 19:28:00 labetalol 20 mg, 4 mL, IVP No Longer Floyd [facility] Route: IVP, Drug Active 2012 Medical form: INJ, ONCE, Center Dosing Weight 78.2, kg, Start date: 10/27/12 17:28:00, Stop date: 10/27/12 17:28:00 Benadryl 25 mg, 1 cap, PO No Longer Floyd [facility] Route: PO, Drug Active 2012 Medical form: CAP, ONCE, Center Dosing Weight 78.2, kg, Start date: 10/27/12 17:28:00, Stop date: 10/27/12 17:28:00 Reglan 10 mg 10 mg, Route: PO No Longer Floyd [facility] oral tablet PO, Drug form: Active 2012 Medical TAB, Before Center Meals & Bedtime, Dosing Weight 78.2, kg, Start date: 10/27/12 16:30:00, Duration: 30 day, Stop date: 11/26/12 11:30:00 Reglan 5 mg, 1 mL, IV No Longer Kennedy [facility] Route: IV, Drug Active 2012 Medical form: INJ, Q8H, Center Dosing Weight 78.2, kg, Start date: 10/27/12 16:00:00, Duration: 30 day, Stop date: 11/26/12 8:00:00 Reglan 5 mg, 1 mL, IV No Longer Kennedy [facility] Route: IV, Drug Active 2012 Medical form: INJ, Q8H, Center Dosing Weight 78.2, kg, PRN Nausea, Start date: 10/27/12 13:08:00, Duration: 30 day, Stop date: 11/26/12 13:07:00 lisinopril 20 mg, 1 tab, PO No Longer Kennedy [facility] Route: PO, Drug Active 2012 Medical form: TAB, Q12H, Center Dosing Weight 78.2, kg, Start date: 10/27/12 10:00:00, Duration: 30 day, Stop date: 11/26/12 9:00:00 ergocalciferol 50,000 IntlUnit, PO No Longer Manlapaz [facility] 1 cap, Route: Active 2012 Medical PO, Drug form: Center CAP, Daily, Dosing Weight 78.2, kg, Start date: 10/27/12 9:00:00, Duration: 4 day, Stop date: 10/30/12 9:00:00 magnesium oxide 400 mg, 1 tab, PO No Longer Gee [facility] Route: PO, Drug Active 2012 Medical form: TAB, Center Daily, Dosing Weight 78.2, kg, Start date: 10/27/12 9:00:00, Duration: 30 day, Stop date: 11/25/12 9:00:00 Toprol-XL 100 100 mg, 1 tab, PO No Longer [place] [facility] mg oral tablet, Route: PO, Drug Active 2012 Medical extended form: ERTAB, [place] release Daily, Start date: 10/27/12 9:00:00, Duration: 30 day, Stop date: 11/25/12 9:00:00 insulin aspart 7 unit, Route: SUB-Q No Longer Manlapaz [facility] SUB-Q, Drug Active 2012 Medical form: SOLN, [place] TID-Before Meals, Dosing Weight 78.2, kg, Start date: 10/26/12 12:00:00, Duration: 30 day, Stop date: 11/25/12 11:30:00 Insulin regular 10 unit, 0.1 mL, SUB-Q No Longer Steward [facility] Route: SUB-Q, Active 2012 Medical Drug form: SOLN, [place] ONCE, Dosing Weight 78.2, kg, Start date: 10/26/12 10:32:00, Stop date: 10/26/12 10:32:00 NIFEdipine 90 mg, 1 tab, PO No Longer Dalton [facility] extended Route: PO, Drug Active 2012 Medical release form: ERTAB, [place] Daily, Dosing Weight 78.2, kg, Start date: 10/26/12 9:00:00, Duration: 30 day, Stop date: 11/24/12 9:00:00 metoprolol 25 mg, 1 tab, PO No Longer [place] [facility] tartrate Route: PO, Drug Active 2012 Medical form: TAB, Q12H, Center Dosing Weight 78.2, kg, Start date: 10/26/12 9:00:00, Duration: 30 day, Stop date: 11/24/12 21:00:00 Reglan 10 mg, 1 tab, PO No Longer [place] Fei Route: PO, Drug Active 2012 Medical form: TAB, Center Before Meals & Bedtime, Dosing Weight 78.2, kg, Start date: 10/25/12 16:30:00, Duration: 30 day, Stop date: 11/24/12 11:30:00 potassium 20 mEq, 100 mL, IVPB No Longer Dalton [facility] chloride Route: IVPB, Active 2012 Medical Drug form: INJ, Center Q2H, Dosing Weight 78.2, kg, Total dose=40 mEq, Start date: 10/25/12 16:00:00, Duration: 2 doses or times, Stop date: 10/25/12 18:00:00 magnesium 2 gm, 50 mL, IVPB No Longer Dalton [facility] sulfate Route: IVPB, Active 2012 Medical Drug form: INJ, Center Q2H, Dosing Weight 78.2, kg, Total dose=4 gm, Start date: 10/25/12 16:00:00, Duration: 2 doses or times, Stop date: 10/25/12 18:00:00 potassium 40 mEq, 2 tab, PO No Longer Dalton [facility] chloride 20 mEq Route: PO, Drug Active [...] mL 1,000 mL, Rate: IV No Longer Kennedy [facility] 100 ml/hr, Active 2012 Medical Infuse over: 10 Center hr, Route: IV, kg, Total Volume: 1,000, Start date: 10/25/12 13:52:00, Duration: 30 day, Stop date: 11/24/12 13:51:00 atenolol 100 mg, 1 tab, PO No Longer [place] [facility] Route: PO, Drug Active 2012 Medical form: TAB, Center Daily, Dosing Weight 78.2, kg, Start date: 10/25/12 9:00:00, Duration: 30 day, Stop date: 11/23/12 9:00:00 Protonix 40 mg, Route: IVP No Longer Carpenter [facility] IVP, Drug form: Active 2012 Medical INJ, Daily, Center Dosing Weight 78.2, kg, Start date: 10/25/12 9:00:00, Duration: 30 day, Stop date: 11/23/12 9:00:00 NovoLog FlexPen 6 unit, 0.06 mL, SUB-Q No Longer Fitzpatrick [facility] Route: SUB-Q, Active 2012 Medical Drug form: SOLN, Center TID-Before Meals, Start date: 10/25/12 7:30:00, Duration: 30 day, Stop date: 11/23/12 16:30:00 insulin lispro 6 unit, Route: SUB-Q No Longer Dee Dee [facility] SUB-Q, Active 2012 Medical TID-Before Center Meals, Dosing Weight 78.2, kg, Start date: 10/25/12 7:30:00, Duration: 30 day, Stop date: 11/23/12 16:30:00 Lactated 1,000 mL, Rate: IV No Longer Dee Dee [facility] Ringers IV 250 ml/hr, Active 2012 Medical 1,000 mL Infuse over: 4 Center hr, Route: IV, kg, Total Volume: 1,000, Start date: 10/25/12 5:50:00, Duration: 30 day, Stop date: 11/24/12 5:49:00 Lactated 1,000 mL, Rate: [facility] Ringers (Bolus) 100 ml/hr, Active 2012 Medical IV 1,000 mL Infuse over: 10 Center hr, Route: IV, kg, Total Volume: 1,000, Start date: 10/25/12 5:50:00, Duration: 1 doses or times, Stop date: 10/25/12 15:49:00 insulin aspart 9 unit, 0.09 mL, SUB-Q No Longer Manlapaz [facility] Route: SUB-Q, Active 2012 Medical Drug form: SOLN, Center TID-Before Meals, Dosing Weight 78.2, kg, PRN Blood Glucose Results, Start date: 10/25/12 3:53:00, Duration: 30 day, Stop date: 11/24/12 3:52:00 glucagon 1 mg, Route: IM, IM No Longer Dee Dee [facility] Drug form: Active 2012 Medical PDR/INJ, PRN, Center Dosing Weight 78.2, kg, PRN Blood Glucose Results, Start date: 10/25/12 3:53:00, Duration: 30 day, Stop date: 11/24/12 4:52:00 Dextrose 50% 12.5 gm, 25 mL, IVP No Longer Funez [facility] 10/25[facility] Syringe Route: IVP, Drug Active 2012 Medical Form: INJ, Center Dosing Weight 78.2, kg, PRN, PRN Blood Glucose Results, Start date: 10/25/12 3:53:00, Duration: 30 day, Stop date: 11/24/12 4:52:00 Dextrose 50% 25 mL, Route: IVP No Longer Dee Dee [facility] 10/25[facility] Syringe IVP, Dosing Active 2012 Medical Weight 78.2, kg, Center PRN, PRN Blood Glucose Results, Start date: 10/25/12 3:52:00, Duration: 30 day, Stop date: 11/24/12 4:51:00 glucagon 1 mg, Route: IM, IM No Longer Dee Dee [facility] 10/25[facility] PRN, Dosing Active 2012 Medical Weight 78.2, kg, Center PRN Blood Glucose Results, Start date: 10/25/12 3:52:00, Duration: 30 day, Stop date: 11/24/12 4:51:00 Neutra-Phos 2 pkt, Route: PO No Longer Neeru [facility] PO, Drug Form: Active 2012 Medical PDR/REC, Dosing Center Weight 78.2, kg, ONCE, Start date: 10/25/12 1:07:00, Stop date: 10/25/12 1:07:00 insulin detemir 25 unit, 0.25 SUB-Q No Longer Manlapaz [facility] mL, Route: Active 2012 Medical SUB-Q, Drug Center form: INJ, Q12H, Dosing Weight 78.2, kg, Priority: NOW, Start date: 10/25/12 1:06:00, Stop date: 11/23/12 21:00:00 heparin 5000 5,000 unit, 1 SUB-Q No Longer Neeru [facility] units/mL mL, Route: Active 2012 Medical injectable SUB-Q, Drug Center solution form: INJ, Q8H, Dosing Weight 78.2, kg, Start date: 10/25/12 0:00:00, Duration: 30 day, Stop date: 11/23/12 16:00:00 Effient 10 mg, Route: PO No Longer Tanikella [facility] PO, Q12H, Dosing Active 2012 Medical Weight 78.2, kg, Center Start date: 10/24/12 21:00:00, Duration: 30 day, Stop date: 11/23/12 9:00:00 Saline Flush 10 mL, Route: IVP No Longer Martínez [facility] 0.9% IVP, Drug Form: Active 2012 Medical INJ, Dosing Center Weight 78.2, kg, Q12H, Start date: 10/24/12 21:00:00, Duration: 30 day, Stop date: 11/23/12 9:00:00 Neutra-Phos 2 pkt, Route: PO No Longer Funez Kamel [facility] PO, Drug Form: Active 2012 Medical PDR/REC, Dosing Center Weight 78.2, kg, ONCE, Start date: 10/24/12 20:35:00, Stop date: 10/24/12 20:35:00 potassium 20 mEq, 100 mL, IVPB No Longer Funez Kamel [facility] chloride Route: IVPB, Active 2012 Medical Drug [...] 40 mg, 2 tab, PO No Longer Kennedy Fei Route: PO, Drug Active 2012 Medical [...] 1,000 mL, Rate: IV [facility] Longer [facility] [place] 150 ml/hr, Active 2012 Medical Injection IV Infuse over: 6.7 Center 1,000 mL hr, Route: IV, kg, Total Volume: 1,000, Start date: 10/24/12 11:50:00, Duration: 30 day, Stop date: 11/23/12 11:49:00 lisinopril 20 mg, 1 tab, PO No Longer Funez [facility] Fei Route: PO, Drug Active 2012 [...] mg, 1 tab, PO No Longer Funez [facility] Fei Route: PO, Drug Active 2012 Medical form: TAB, Center Daily, Dosing Weight 78.2, kg, Priority: NOW, Start date: 10/24/12 10:53:00, Duration: 30 day, Stop date: 11/23/12 9:00:00 potassium 40 mEq, 2 tab, PO No Longer Funez [facility] Fei chloride Route: PO, Drug Active [...] Duration: 1 doses or times, Dose=2.2ml/kg, Max [id number] -- "To be infused by Radiology Staff ONLY"Dose=2.2ml/ kg, Max [id number] -- "To be infused by Radiology Staff [...] Duration: 1 doses or times, Dose=2.2ml/kg, Max [id number] -- "To be infused by Radiology Staff ONLY"Dose=2.2ml/ kg, Max [id number] -- "To be infused by Radiology Staff ONLY" Insulin 100 mL, Rate: IV No Longer [place] Fei (regular) 0.1units/kg/hour Active 2012 Medical Titrate [...] mg Route: IV, Q24H, IV No Longer Kritsy Fei + Vitamin B1 Start date: Active 2012 Medical 100 mg + M.V.I. 10/23/12 Center Adult 10 mL + 9:00:00, potassium Duration: 3 day, chloride 20 mEq Stop date: + Dextrose 5% 10/25/12 9:00:00 Sodium Chloride 1,000 mL, Rate: IV No Longer Isaac [place] 0.9% IV 1,000 100 ml/hr, Active 2012 Medical mL + M.V.I.-12 Infuse over: Center 10 mL Daily + 10.1 hr, Route: folic acid IV 1 IV, kg, Total mg Daily + Volume: 1,011.2, thiamine IV 1 Start date: 10/23/12 8:41:00, Duration: 3 day, Stop date: 10/26/12 8:40:00 Insulin regular 100 mL, Rate: IVPB No Longer Isaac [place] 100 unit + Start Insulin Active 2012 [...] gm, 50 mL, IVP No Longer Isaac [place] Syringe Route: IVP, Drug Active 2012 Medical Form: INJ, Center Dosing Weight 113.636, kg, PRN, PRN Blood Glucose Results, Start date: 10/23/12 8:17:00, Duration: 30 day, Stop date: 11/22/12 9:16:00 normal saline 1,000 mL, Rate: IV No Longer Isaac [place] 0.9% IV 1,000 150 ml/hr, Active 2012 [...] mg, 0.5 mL, IV No Longer Funez [facility] Fei Route: IV, Drug Active 2012 Medical form: INJ, Q4H, Center Dosing Weight 113.636, kg, PRN Other -See Comment, Start date: 10/23/12 0:38:00, Duration: 30 day, Stop date: 11/22/12 0:37:00, hypertesnion acetaminophen 650 mg, 1 supp, [place] No Longer Kristy Fei Route: [place], Drug Active 2012 Medical [...] mg, 5 mL, IVP No Longer Funez [facility] mg/5 ml INJ Route: IVP, [...] mg, Route: IM, IM No Longer Isaac [place] Drug form: Active 2012 Medical PDR/INJ, PRN, Center Dosing Weight 113.636, kg, PRN Blood Glucose Results, Start date: 10/23/12 0:26:00, Duration: 30 day, Stop date: 11/22/12 1:25:00 Dextrose 50% 25 gm, 50 mL, IVP No Longer Isaac [place] Syringe Route: IVP, Drug Active 2012 Medical Form: INJ, Center Dosing Weight 113.636, kg, PRN, PRN Blood Glucose Results, Start date: 10/23/12 0:26:00, Duration: 30 day, Stop date: 11/22/12 1:25:00 Zofran ODT 8 mg, 1 tab, PO No Longer Steward [place] Route: PO, Drug Active 2012 Medical form: TABDIS, Center Q8H, Dosing Weight 113.636, kg, PRN Nausea, Start date: 10/23/12 0:02:00, Stop date: 11/22/12 0:01:00 heparin 5,000 unit, SUB-Q No Longer Brian [place] Route: SUB-Q, Active 2012 Medical Q8H, Dosing Center Weight 113.636, kg, Start date: 10/23/12 0:00:00, Duration: 30 day, Stop date: 11/21/12 16:00:00 carvedilol 25 Daily, No Longer [place] mg oral tablet Substitution Active 2012 Medical Allowed [place] Diovan HCT 160 1 tab, PO, PO No Longer [place] mg-12.5 mg oral Daily, 30 tab, Active [...] mg, 10 mL, [place] No Longer Pauline 10/07[facility] Fei Route: [place], Drug Active 2012 Medical form: SUSP, Center Q12H, Dosing Weight 118.2, kg, Start date: 10/07/12 14:30:00, Duration: 7 day, Stop date: 10/14/12 9:00:00 [place] 325 mg-10 15 mL, Route: PO No Longer Sushila Fei mg / 15 mL oral PO, Drug Form: Active 2012 Medical solution SOLN, Dosing Center Weight 118.2, kg, Q4H, PRN For Pain, Start date: 10/07/12 14:22:00, Duration: 30 day, Stop date: 11/06/12 14:21:00 Diovan 160 mg, 1 tab, PO No Longer Sushila [facility] Route: PO, Drug Active 2012 Medical form: TAB, Center Daily, Dosing Weight 118.2, kg, Start date: 10/07/12 14:00:00, Duration: 30 day, Stop date: 11/06/12 9:00:00 Coreg 25 mg, 1 tab, PO No Longer Sushila [facility] Route: PO, Drug Active 2012 Medical form: TAB, Q12H, Center Dosing Weight 118.2, kg, Start date: 10/07/12 14:00:00, Duration: 30 day, Stop date: 11/06/12 9:00:00 potassium 20 mEq, 100 mL, IVPB No Longer Bagshahi [facility] chloride Route: IVPB, Active 2012 Medical Drug [...] Route: TOP, TOP No Longer Dru Fei [place] Dosing Weight Active 2012 Medical 118.2, kg, PRN, Center PRN, Start date: 10/06/12 22:46:00, Duration: 30 day, Stop date: 11/05/12 22:45:00, prn Dilaudid 0.2 mg, 0.1 mL, IV No Longer Sushila [facility] Route: IV, Drug Active 2012 [...] unit, 0.2 mL, SUB-Q No Longer Sushila [facility] Route: SUB-Q, Active 2012 Medical Drug form: INJ, Center Q12H, Start date: 10/05/12 21:00:00, Duration: 30 day, Stop date: 11/04/12 9:00:00 carvedilol 25 mg, 1 tab, PO No Longer Sushila [facility] Route: PO, Drug Active 2012 Medical form: TAB, Q12H, Center Dosing Weight 118.2, kg, Start date: 10/04/12 21:00:00, Duration: 30 day, Stop date: 11/03/12 9:00:00 [place] 325 mg-10 30 mL, Route: PO No Longer Allencami Fei mg / 15 mL oral PO, Drug Form: Active 2012 Medical solution SOLN, Dosing Center Weight 118.2, kg, Q4H, PRN Pain Score 6-10, Start date: 10/04/12 17:20:00, Duration: 30 day, Stop date: 11/03/12 17:19:00 Diovan 160 mg, 1 tab, PO No Longer Sushila [facility] Route: PO, Drug Active 2012 Medical form: TAB, Center Daily, Dosing Weight 118.2, kg, Start date: 10/04/12 14:00:00, Duration: 30 day, Stop date: 11/03/12 9:00:00 Trandate 10 mg, 2 mL, IVP No Longer Low [facility] Route: IVP, Drug Active 2012 Medical form: INJ, Q4H, Center PRN Elevated BP, Start date: 10/04/12 9:05:00, Duration: 30 day, Stop date: 11/03/12 9:04:00 hydrALAZINE 20 mg, 1 mL, IVP No Longer Low [facility] Route: IVP, Drug Active 2012 [...] unit, 0.2 mL, SUB-Q No Longer Low [facility] Route: SUB-Q, Active 2012 Medical Drug form: INJ, Center Q12H, Dosing Weight 118.2, kg, Priority: NOW, Start date: 10/04/12 7:02:00, Duration: 30 day, Stop date: 11/02/12 21:00:00 hydrALAZINE 10 mg, 0.5 mL, IVP No Longer Low [facility] Route: IVP, Drug Active 2012 Medical form: INJ, ONCE, Center Dosing Weight 118.2, kg, Start date: 10/04/12 6:53:00, Stop date: 10/04/12 6:53:00 labetalol 10 mg, 2 mL, IVP No Longer Low [facility] Route: IVP, Drug Active 2012 Medical form: INJ, Center Q15Min, Dosing Weight 118.2, kg, PRN Hypertension, Start date: 10/04/12 5:11:00, Duration: 3 doses or times, Stop date: Limited # of times Insulin regular 12 unit, 0.12 SUB-Q No Longer [place] mL, Route: Active 2012 Medical SUB-Q, Drug Center form: SOLN, Sliding Scale, Dosing Weight 118.2, kg, PRN Blood Glucose Results, Start date: 10/04/12 0:40:00, Duration: 30 day, Stop date: 11/03/12 0:39:00 Dextrose 50% 25 gm, 50 mL, IVP No Longer Allenson [facility] Syringe Route: IVP, Drug Active 2012 Medical Form: INJ, Center Dosing Weight 118.2, kg, PRN, PRN Blood Glucose Results, Start date: 10/04/12 0:40:00, Duration: 30 day, Stop date: 11/03/12 0:39:00 glucagon 1 mg, Route: IM, IM No Longer [place] [facility] Drug form: Active 2012 Medical PDR/INJ, PRN, Center Dosing Weight 118.2, kg, PRN Blood Glucose Results, Start date: 10/04/12 0:40:00, Duration: 30 day, Stop date: 11/03/12 0:39:00 Ofirmev 1,000 mg, 100 IV No Longer [facility] mL, Route: IV, Active 2012 Medical Drug form: INJ, Center Q6H, Start date: 10/03/12 18:00:00, Duration: 4 doses or times, Stop date: 10/04/12 12:00:00 Mefoxin 2 gm, Route: IVPB No Longer [facility] IVPB, Drug form: Active 2012 Medical INJ, ABXQ8H, [place] Start date: 10/03/12 16:00:00, Duration: 2 doses or times, Stop date: 10/04/12 0:00:00 Lopressor 5 mg, 5 mL, IV No Longer Low [facility] Route: IV, Drug Active 2012 Medical form: INJ, Q6H, Center Start date: 10/03/12 16:00:00, Duration: 30 day, Stop date: 11/02/12 10:00:00 Humulin R 100 10 unit, 0.1 mL, SUB-Q No Longer [facility] units/mL Route: SUB-Q, Active 2012 Medical injectable Drug form: SOL, [place] solution TID-Before Meals, PRN Blood Glucose Results, Start date: 10/03/12 14:30:00, Duration: 30 day, Stop date: 11/02/12 14:29:00 Dextrose 50% in 50 mL, Route: IV No Longer [facility] 10/03[facility] [place] IV IV, Start date: Active 2012 Medical 10/03/12 Center 14:29:00, Duration: 30 day, Stop date: 11/02/12 14:28:00, PRN Blood Glucose Results Dextrose 50% in 25 mL, Route: IVP No Longer [facility] 01/28[facility] IV IVP, Start date: Active 2012 Medical 10/03/12 Center 14:28:00, Duration: 30 day, Stop date: 11/02/12 14:27:00, PRN Blood Glucose Results Zofran 4 mg, 2 mL, IVP No Longer Low [facility] Route: IVP, Drug Active 2012 Medical form: INJ, Q8H, Center PRN Nausea, Start date: 10/03/12 14:22:00, Duration: 30 day, Stop date: 11/02/12 14:21:00 naloxone 0.2 mg, 0.5 mL, IV No Longer Bagshahi [facility] Route: IV, Drug Active 2012 Medical form: INJ, PRN, Center PRN Narcotic Reversal, Start date: 10/03/12 14:21:00, Duration: 30 day, Stop date: 11/02/12 14:20:00 hydromorphone IV, Start date: IV No Longer Low [facility] 15 mg 10/03/12 Active 2012 Medical 14:19:00, Center Duration: 30, 30 ml, 118.2 Phenergan 12.5 mg, 0.5 mL, IVPB No Longer Bagshi [facility] Route: IVPB, Active 2012 Medical Drug form: INJ, Center Q4H, PRN Nausea, Start date: 10/03/12 14:08:00, Duration: 30 day, Stop date: 11/02/12 14:07:00 Phenergan 12.5 mg, 0.5 mL, IM [facility] Route: IM, Drug Active 2012 Medical form: INJ, Q4H, Center PRN Nausea, Start date: 10/03/12 14:07:00, Duration: 30 day, Stop date: 11/02/12 14:06:00 Benadryl 25 mg, 0.5 mL, IM No Longer Sushila [facility] Route: IM, Drug Active 2012 Medical form: INJ, Center Bedtime, PRN Insomnia, Start date: 10/03/12 14:04:00, Duration: 30 day, Stop date: 11/02/12 14:03:00 Lactated 1,000 mL, Rate: IV No Longer [place] Ring[place] 125 ml/hr, Active 2012 Medical Injection IV Infuse over: 8 Center 1,000 mL hr, Route: IV, kg, Total Volume: 1,000, Start date: 10/03/12 14:00:00, Duration: 30 day, Stop date: 11/02/12 13:59:00 ondansetron 4 mg, 2 mL, IVP No Longer Jose [facility] Route: IVP, Drug Active 2012 [...] mg, 0.25 mL, IVP No Longer Jose [facility] Route: IVP, Drug Active 2012 [...] 2 gm, Route: IVPB No Longer Sushila [place] IVPB, Drug form: Active 2012 Medical INJ, PRE OP, Center Priority: STAT, Start date: 10/03/12 5:50:00, Duration: 1 day, Stop date: 10/04/12 5:49:00 Mobic 15 mg 10 mg, PO, PO Active [place] oral tablet Daily, 30 tab, 2012 Medical Substitution Center Allowed, TAB Zetia Daily, Active [facility] Substitution 2011 Medical Allowed Center Klor-Con 10 10 mEq, 1 tab, PO Active [place] oral tablet, PO, Daily, 180 2011 Medical extended tab, Center release Substitution Allowed, ERTAB ferrous 324 mg, 1 tab, PO Active [facility] gluconate 324 PO, Daily, 100 2011 Medical mg oral tablet tab, Center Substitution Allowed, TAB Lasix 40 mg 40 mg, 1 tab, PO Active [place] oral tablet PO, Daily, 30 2011 Medical tab, Center Substitution Allowed, TAB Cymbalta 60 mg 60 mg, 1 cap, PO Active [facility] oral delayed PO, BID, 30 [...] mg 150 mg, 1 cap, PO Active [facility] oral capsule PO, BID, 90 cap, 2011 Medical Substitution Center Allowed, CAP Klonopin 0.5 mg 0.5 mg, 1 tab, PO Active [facility] oral tablet PO, TID, 2011 Medical Substitution Center Allowed, TAB Diovan 160 mg 160 mg, 1 tab, PO Active [place] oral tablet PO, Daily, 30 2011 Medical tab, Center Substitution Allowed, TAB carvedilol 25 25 mg, 1 tab, PO Active [place] mg oral tablet PO, BID, 60 tab, 2011 [facility] Substitution Center Allowed, TAB omeprazole 20 [...] oral tablet PO, BID, 30 tab, 2011 [facility] Substitution Center Allowed NovoLog Substitution Active [facility] Allowed 2011 [facility] Levemir FlexPen Substitution Active [facility] Allowed 2011 [facility] Allergies, Adverse Reactions, Alerts No Known Medication Allergies Immunizations Immunization Date Given Site Status Last Updated Comments Source influenza virus 07/14/2013 completed [facility] vaccine, Medical inactivated Center pneumococcal 07/14/2013 completed [place] [facility] 23-valent vaccine [facility] Results Order Name Results Value Reference Date Interpretation Comments Source Range CHEMISTRY U Preg Negative Negative 08/13 Normal [facility] (08/13/2013 13:30:00) [facility] URINALYSIS UA RBC 0-2 /HPF 0 - 2 08/13 Normal [facility] URINALYSIS UA WBC 3-5 /HPF None Seen 08/13 Normal [facility] URINALYSIS UA Sq Epi Few /LPF Few 08/13 Normal Medical Center URINALYSIS Micro? Performed 08/13 Normal [facility] (08/13/2013 13:30:00) [facility] URINALYSIS UA Hyal Cast 0-2 0 - 2 08/13 Normal [facility] (08/13/2013 13:30:00) Medical Center URINALYSIS UA Glucose 250 mg/dL Negative 08/13 [facility] URINALYSIS UA Blood Negative Negative 08/13 Normal [facility] (08/13/2013 13:30:00) [facility] URINALYSIS UA Ketones >=80 mg/dL Negative 08/13 [facility] URINALYSIS UA 0.2 0.1 - 1.0 08/13 Normal [facility] Urobilinogen [facility] URINALYSIS UA Nitrite Negative Negative 08/13 Normal [facility] (08/13/2013 13:30:00) [facility] URINALYSIS UA Bili Small 1 Negative 08/13 ABN <sup>1</sup>R [facility] *ABN* [facility] (08/13/2013 13:30:00) Comment: Center Interpret positive bilirubin results with caution. Confirmatory testing
n ot possible due to the unavailabilit y of reagent. Correlation with
seru m chemistry results recommended. URINALYSIS UA Leuk Est Negative Negative 08/13 [facility] (08/13/2013 13:30:00) [facility] URINALYSIS UA Protein Negative Negative 08/13 [facility] (08/13/2013 13:30:00) [facility] URINALYSIS UA pH 6.0 5.0 - 8.0 08/13 Normal [facility] URINALYSIS UA Spec Grav 1.020 <=1.030 08/13 Normal [facility] URINALYSIS UA Color Yellow Yellow 08/13 [facility] *NA* [facility] (08/13/2013 13:30:00) [place] URINALYSIS UA Turbidity Clear Clear 08/13 Normal [facility] (08/13/2013 13:30:00) [facility] CHEMISTRY BE Mark 1 -2-2 - 2 08/13 Normal [facility] CHEMISTRY pO2 Mark 29 20 - 49 08/13 Normal [facility] CHEMISTRY O2 Sat Mark 55.9 40.0 - 08/13 [facility] 70.0 [facility] CHEMISTRY Temp Mark 37.0 08/13 [facility] CHEMISTRY HCO3 Mark 26 22 - 26 08/13 Normal [facility] CHEMISTRY pCO2 Mark 41 38 - 52 08/13 Normal [facility] CHEMISTRY pH Mark 7.41 7.28 - 08/13 [facility] 7.42 [facility] CHEMISTRY eGFR 60 08/13 <sup>2</sup>R [facility] Comment: The Center eGFR is calculated [...] CO2 25 24 - 32 08/13 Normal [facility] CHEMISTRY Chloride Lvl 98 95 - 109 08/13 Normal [facility] CHEMISTRY BUN 9 7 - 22 08/13 [facility] CHEMISTRY Calcium Lvl 9.1 8.5 - 10.5 08/13 Normal [facility] CHEMISTRY Glucose Lvl 301 70 - 99 08/13 [place] <sup>3</sup>I nterpretive Medical Data: [facility] Center reference range values reflect the clinical guidelines
of the [employer]. CHEMISTRY Potassium Lvl 3.8 3.5 - 5.1 08/13 Normal [facility] CHEMISTRY Sodium Lvl 134 135 - 145 08/13 LOW [facility] CHEMISTRY Creatinine 1.1 0.5 - 1.4 08/13 Normal [facility] Lvl [facility] CHEMISTRY Bili Total 0.6 0.2 - 1.3 08/13 Normal [facility] CHEMISTRY ASPARTATE 17 0 - 37 08/13 Normal [facility] TRANSAMINASE [facility] CHEMISTRY ALANINE 22 0 - 65 08/13 [facility] AMINO [facility] CHEMISTRY Albumin Lvl 3.5 3.5 - 5.0 08/13 Normal [facility] CHEMISTRY Alk Phos 130 39 - 136 08/13 Normal [facility] CHEMISTRY Total Protein 7.8 6.4 - 8.4 08/13 Normal [facility] CHEMISTRY B/C Ratio 8 6 - 25 08/13 Normal [facility] CHEMISTRY AGAP 14.8 10.0 - 12 [facility] 20.0 /2012 [facility] CHEMISTRY Globulin 4.3 2.0 - 4.0 12/ HI [facility] CHEMISTRY A/G Ratio 0.8 0.7 - 1.6 12/ Normal [facility] HEMATOLOGY Monocytes # 0.8 0.0 - 0.8 12/ Normal [facility] HEMATOLOGY Eosinophils # 0.0 0.0 - 0.5 12/ Normal [facility] HEMATOLOGY Basophils # 0.0 0.0 - 0.2 12/ Normal [facility] HEMATOLOGY Basophils 0.1 0.0 - 1.0 12/ Normal [facility] HEMATOLOGY Lymphocytes # 1.4 1.0 - 5.5 12 Normal [facility] HEMATOLOGY Segs-Bands # 10.5 1.5 - 8.1 12 HI [facility] HEMATOLOGY Monocytes 6.3 2.0 - 12.0 12/ Normal [facility] HEMATOLOGY Eosinophils 0.2 0.0 - 4.0 12/ Normal [facility] HEMATOLOGY Lymphocytes 11.3 20.0 - 12/08 LOW [place] 40.0 /2012 [facility] HEMATOLOGY Segs 82.1 45.0 - 12/08 [facility] [place] 75.0 /2012 [facility] HEMATOLOGY WBC X 10x3 12.7 3.7 - 10.4 12 HI [facility] HEMATOLOGY Hct 37.0 36.0 - 12/08 Normal [place] 48.0 /2012 [facility] HEMATOLOGY RBC X 10x6 4.36 4.20 - 12/08 Normal [place] 5.40 /2012 [facility] HEMATOLOGY Hgb 12.6 12.0 - 12/08 Normal [place] 16.0 /2012 [facility] HEMATOLOGY MCV 84.8 81.0 - 12/08 Normal [place] 99.0 /2012 Medical [place] HEMATOLOGY MCH 28.8 27.0 - 12/08 Normal [place] 31.0 /2012 [facility] HEMATOLOGY MCHC 34.0 32.0 - 12/08 Normal [place] 36.0 /2012 [facility] HEMATOLOGY Platelet 238 133 - 450 12 Normal [facility] HEMATOLOGY MPV 9.5 7.4 - 10.4 12/ Normal [facility] HEMATOLOGY RDW 13.1 11.5 - 12/08 Normal [facility] [place] 14.5 /2012 Medical Center BEDSIDE Gluc POC Notify 07/26 [facility] GLUCOSE Comment 1 RN/MD /2012 Medical TESTING Center BEDSIDE Glucose POC 274 70 - 99 07/26 [place] <sup>1</sup>I [facility] GLUCOSE nterpretive Medical TESTING Data: [place] Reportable Limit: 200 mg/dL. BEDSIDE Glucose POC 146 70 - 99 07/15 [place] <sup>2</sup>I [facility] GLUCOSE nterpretive Medical TESTING Data: [place] Reportable Limit: 200 mg/dL. BEDSIDE Gluc POC Notify 07/15 [facility] GLUCOSE Comment 1 RN/MD /2012 Medical TESTING Center BEDSIDE Glucose POC 140 70 - 99 07/14 [place] <sup>3</sup>I [facility] GLUCOSE nterpretive Medical TESTING Data: [place] Reportable Limit: 200 mg/dL. BEDSIDE Gluc POC Notify 07/14 [facility] GLUCOSE Comment 1 RN/MD /2012 Medical TESTING Center BEDSIDE Gluc POC Notify 07/14 [facility] GLUCOSE Comment 1 RN/MD /2012 Medical TESTING Center BEDSIDE Glucose POC 44 70 - 99 07/14 LOW <sup>4</sup>I [facility] nterpretive Medical TESTING Data: [place] Upper Reportable Limit: 200 mg/dL. IMMUNOLOGY [place]-HIV Negative Negative 07/14 [facility] 09/07 Ab *NA* Medical (07/14/2013 00:27:00) Center IMMUNOLOGY [place]-Hep C Negative Negative 07/14 [facility] Ab *NA* Medical (07/14/2013 00:27:00) Center CHEMISTRY [...] Lvl 135 135 - 145 07/13 Normal [facility] CHEMISTRY Chloride Lvl 95 95 - 109 07/13 Normal [facility] CHEMISTRY AGAP 16.5 10.0 - 07/13 Normal [facility] 20.0 [facility] CHEMISTRY Glucose Lvl 322 70 - 99 07/13 [place] <sup>8</sup>I nterpretive Medical Data: [facility] Center reference range values reflect the clinical guidelines
of the [employer]. CHEMISTRY Creatinine 0.6 0.5 - 1.4 07/[address] [facility] CHEMISTRY BUN 6 7 - 22 07/13 LOW [facility] CHEMISTRY Calcium Lvl 8.6 8.5 - 10.5 07/13 Normal [facility] CHEMISTRY CO2 27 24 - 32 07/13 Normal [facility] CHEMISTRY Potassium Lvl 3.5 3.5 - 5.1 07/13 Normal [facility] INFECTIOUS C difficile Negative 1 Negative 07/13 Normal <sup>1</sup>I [facility] DISEASES DNA (07/13/2013 00:00:59) nterpretive Medical Data: [place] [employer] Clostridium difficile assay utilizes loop-mediated isothermal DNA amplification (LAMP) technology to detect a 204 bp region of the tcdA gene within the PaLoc gene segment present in all known toxigenic C. difficile strains.

The assay utilizes FDA cleared IVD reagents. Performance characteristi cs have been verified by the [facility] within the [facility]. The [facility] Laboratory is authorized under the Clinical Laboratory Improvement Amendment of 1988 (CLIA-88) to perform high complexity testing. CHEMISTRY Lactic Acid 1.9 0.5 - 2.2 07/[address] [facility] CHEMISTRY eGFR 88 07/12 <sup>6</sup>R [...] CHEMISTRY Troponin-I <0.02 0.00 - 07/12 Normal [facility] 0.40 /2012 [facility] HEMATOLOGY Basophils # 0.0 0.0 - 0.2 07/12 Normal [facility] HEMATOLOGY Eosinophils # 0.3 0.0 - 0.5 07/12 Normal [facility] HEMATOLOGY Monocytes # 1.0 0.0 - 0.8 07/12 [place] [facility] HEMATOLOGY Lymphocytes # 3.0 1.0 - 5.5 07/12 Normal [facility] HEMATOLOGY Segs-Bands # 6.4 1.5 - 8.1 07/12 Normal [facility] HEMATOLOGY Basophils 0.4 0.0 - 1.0 07/12 Normal [facility] HEMATOLOGY Eosinophils 2.8 0.0 - 4.0 07/12 Normal [facility] HEMATOLOGY Plt Morph Normal 07/12 Normal [facility] (07/12/2013 16:29:10) [facility] HEMATOLOGY RBC Morph Normal 07/12 Normal [facility] (07/12/2013 16:29:10) [facility] HEMATOLOGY Monocytes 9.4 2.0 - 12.0 07/12 Normal [facility] HEMATOLOGY Lymphocytes 27.9 20.0 - 07/12 Normal [place] 40.0 [facility] HEMATOLOGY Segs 59.5 45.0 - 07/12 Normal [place] 75.0 /2012 [facility] HEMATOLOGY MCV 85.3 81.0 - 07/12 Normal [place] 99.0 [facility] HEMATOLOGY Hct 41.2 36.0 - 07/12 Normal [facility] 48.0 /2012 Medical Center HEMATOLOGY Hgb 13.6 12.0 - 11 Normal [facility] 16.0 /2012 Medical Center HEMATOLOGY RBC X 10x6 4.84 4.20 - 11 Normal [facility] 5.40 /2012 Medical Center HEMATOLOGY MPV 9.4 7.4 - 10.4 11 Normal [facility] HEMATOLOGY Platelet 225 133 - 450 11 Normal [facility] HEMATOLOGY MCH 28.1 27.0 - 11 Normal [facility] 31.0 /2012 Medical Center HEMATOLOGY MCHC 33.0 32.0 - 11 Normal [facility] 36.0 /2012 Medical Center HEMATOLOGY RDW 12.7 11.5 - 11 Normal [facility] 14.5 /2012 Medical Center HEMATOLOGY WBC X 10x3 10.7 3.7 - 10.4 07/12 HI [facility] CHEMISTRY AGAP 12.4 10.0 - 07/12 Normal [facility] 20.0 Medical Center CHEMISTRY Calcium Lvl 8.8 [...] Creatinine 0.8 0.5 - 1.4 07/[address] [facility] CHEMISTRY BUN 6 7 - 22 07/12 LOW Medical Center CHEMISTRY Glucose Lvl 163 70 - 99 07/12 HI <sup>9</sup>I nterpretive Medical Data: Adult Center reference range values reflect the clinical guidelines
of the [employer]. IMMUNOLOGY CDC-HIV 1/2 Negative Negative 07/12 [facility] Ab *NA* /2012 Medical (07/12/2013 16:02:06) Center CHEMISTRY Calcium Lvl 8.4 8.5 - 10.5 07/12 LOW Medical Center CHEMISTRY AGAP 10.4 10.0 - 07/12 Normal [facility] 20.0 Medical Center CHEMISTRY eGFR 76 07/12 <sup>7</sup>R [facility] esult Medical Comment: The Center eGFR is [...] Lvl 140 135 - 145 07/12 Normal [facility] CHEMISTRY Chloride Lvl 103 95 - 109 07/12 Normal [facility]2012 [facility] CHEMISTRY Potassium Lvl 3.4 3.5 - 5.1 07/12 LOW [facility] CHEMISTRY BUN 9 7 - 22 07/12 Normal [facility] CHEMISTRY Creatinine 0.9 0.5 - 1.4 07/[address] [facility] CHEMISTRY Glucose Lvl 296 70 - 99 07/12 HI <sup>10</sup> Interpretive Medical Data: Adult Center reference range values reflect the clinical guidelines
of the [employer]. CHEMISTRY CO2 30 24 - 32 07/12 Normal [facility] CHEMISTRY Troponin-I <0.02 0.00 - 11 Normal [facility] 0.40 [facility] CHEMISTRY Lipase Lvl 76 73 - 393 07/12 Normal [facility] CHEMISTRY B/C Ratio 11 6 - 25 07/12 Normal [facility] CHEMISTRY ASPARTATE 25 0 - 37 07/12 Normal [facility] TRANSAMINASE [facility] CHEMISTRY Bili Total 0.4 0.2 - 1.3 07/12 Normal [facility] CHEMISTRY Alk Phos 119 39 - 136 07/12 Normal [facility] CHEMISTRY Albumin Lvl 3.9 3.5 - 5.0 07/12 Normal [facility] CHEMISTRY ALANINE 29 0 - 65 07/12 Normal [facility] AMINOTRANSFER [facility] CHEMISTRY Total Protein 8.1 6.4 - 8.4 07/12 Normal [facility] CHEMISTRY Globulin 4.2 2.0 - 4.0 07/12 HI [facility] CHEMISTRY A/G Ratio 0.9 0.7 - 1.6 07/12 Normal [facility] HEMATOLOGY Monocytes # 0.6 0.0 - 0.8 07/12 Normal [facility] HEMATOLOGY Segs-Bands # 9.5 1.5 - 8.1 07/12 HI [facility] HEMATOLOGY Eosinophils # 0.2 0.0 - 0.5 07/12 Normal [facility] HEMATOLOGY Lymphocytes # 2.1 1.0 - 5.5 07/12 Normal [facility] HEMATOLOGY Basophils 0.2 0.0 - 1.0 07/12 Normal [facility] HEMATOLOGY Neut Vac Slight None Seen 07/12 [facility] [place] *ABN* /2012 [facility] (07/12/2013 03:30:00) [place] HEMATOLOGY Hypochrom Slight None Seen 07/12 Normal [facility] (07/12/2013 03:30:00) [facility] HEMATOLOGY Basophils # 0.0 0.0 - 0.2 07/12 Normal [facility] HEMATOLOGY RBC Morph Normal 07/12 Normal [facility] (07/12/2013 03:30:00) [facility] HEMATOLOGY Eosinophils 1.6 0.0 - 4.0 07/12 Normal [facility] HEMATOLOGY Monocytes 4.6 2.0 - 12.0 07/12 Normal [facility] HEMATOLOGY Segs 76.6 45.0 - 07/12 HI [place] 75.0 [facility] HEMATOLOGY Lymphocytes 17.0 20.0 - 07/12 LOW [place] 40.0 [facility] HEMATOLOGY Plt Morph Normal 07/12 Normal [facility] (07/12/2013 03:30:00) [facility] HEMATOLOGY MCHC 32.4 32.0 - 07/12 Normal [place] 36.0 [facility] HEMATOLOGY MCH 27.4 27.0 - 07/12 Normal [place] 31.0 [facility] HEMATOLOGY RDW 12.7 11.5 - 07/12 Normal [facility] [place] 14.5 /2012 [facility] HEMATOLOGY Platelet 235 133 - 450 07/12 Normal [place] [facility] HEMATOLOGY MPV 9.4 7.4 - 10.4 07/12 Normal [facility] HEMATOLOGY Hgb 12.9 12.0 - 07/12 Normal [facility] 16.0 /2012 [facility] HEMATOLOGY MCV 84.3 81.0 - 07/12 Normal [facility] 99.0 /2012 [facility] HEMATOLOGY Hct 39.6 36.0 - 07/12 Normal [facility] 48.0 /2012 [facility] HEMATOLOGY WBC X 10x3 12.4 3.7 - 10.4 07/12 HI [facility] HEMATOLOGY RBC X 10x6 4.70 4.20 - 07/12 Normal [facility] 5.40 /2012 [facility] CHEMISTRY U Preg Negative Negative 07/12 Normal [facility] (07/12/2013 03:00:00) [facility] URINALYSIS UA Leuk Est Negative Negative 07/12 Normal [facility] (07/12/2013 03:00:00) [facility] URINALYSIS UA 0.2 0.1 - 1.0 07/12 Normal [facility] Urobilinogen [facility] URINALYSIS UA Nitrite Negative Negative 07/12 Normal [facility] (07/12/2013 03:00:00) Medical Center URINALYSIS UA Bili Negative Negative 07/12 [facility] *NA* [facility] (07/12/2013 03:00:00) Center URINALYSIS UA pH 6.0 5.0 - 8.0 07/12 Normal [facility] URINALYSIS UA Protein Negative Negative 07/12 Normal [facility] mg/dL Medical Center URINALYSIS UA Glucose >=1000 Negative 07/12 ABN [facility] mg/dL Medical Center URINALYSIS UA Ketones 15 mg/dL Negative 07/12 ABN [facility] Medical Center URINALYSIS UA Spec Grav 1.020 <=1.030 07/12 Normal [facility] URINALYSIS UA Blood Negative Negative 07/12 Normal [facility] (07/12/2013 03:00:00) Medical Center URINALYSIS UA Color Yellow Yellow 07/12 [facility] *NA* [facility] (07/12/2013 03:00:00) Center URINALYSIS UA Turbidity Clear Clear 07/12 Normal [facility] (07/12/2013 03:00:00) Medical Center URINALYSIS UA RBC 0-2 /HPF 0 - 2 07/12 Normal Medical Center URINALYSIS UA WBC 3-5 /HPF None Seen 07/12 Normal [facility] URINALYSIS UA Sq Epi Many /LPF Few 07/12 ABN [facility] URINALYSIS UA Bacteria Few /HPF None Seen 07/12 Normal [facility] URINALYSIS UA [place] Yeast Moderate None Seen 07/12 ABN / Medical Center URINALYSIS Micro? Performed 07/12 Normal [facility] (07/12/2013 03:00:00) Medical Center BEDSIDE Gluc POC 226 70 - 99 04/03 HI <sup>1</sup>I [facility] GLUCOSE Lifscn nterpretive Medical TESTING Data: [place] Upper Reportable Limit: 200 mg/dL. BEDSIDE Comment2 Sliding 04/03 NA [facility] GLUCOSE Scale Medical TESTING Center BEDSIDE Comment1 Notify 04/03 NA [facility] GLUCOSE RN/ Medical TESTING Center BEDSIDE Comment1 Notify 04/03 NA [facility] GLUCOSE RN/MD /2012 Medical TESTING Center BEDSIDE Gluc POC 198 70 - 99 04/03 HI <sup>2</sup>I [facility] GLUCOSE Lifscn nterpretive Medical TESTING Data: Center Upper Reportable Limit: 200 mg/dL. BEDSIDE Comment2 Sliding 04/03 NA [facility] GLUCOSE Scale Medical TESTING Center BEDSIDE Comment2 Sliding 04/03 NA [facility] GLUCOSE Scale Medical TESTING Center BEDSIDE Comment1 Notify 04/03 NA [facility] GLUCOSE RN/ /2012 Medical TESTING Center BEDSIDE Gluc POC 182 70 - 99 04/03 HI <sup>3</sup>I [facility] GLUCOSE Lifscn nterpretive Medical TESTING Data: [place] Upper Reportable Limit: 200 mg/dL. CHEMISTRY Troponin-T <0.010 0.000 - 04/03 Normal [facility] 0.100 [facility] CHEMISTRY Troponin-I <0.02 0.00 - 04/03 Normal [facility] 0.40 [facility] CHEMISTRY Total CK 41 12 - 191 04/03 Normal [facility] CHEMISTRY Creatinine 0.6 0.5 - 1.4 04/03 Normal [facility] Lvl Medical Center CHEMISTRY Sodium Lvl 137 135 - 145 04/03 Normal [facility] CHEMISTRY CO2 25 24 - 32 04/03 Normal [facility] CHEMISTRY Calcium Lvl 8.2 8.5 - 10.5 04/03 LOW [facility] CHEMISTRY AGAP 17.9 10.0 - 04/03 Normal [facility] 20.0 [facility] CHEMISTRY Potassium Lvl 3.9 3.5 - 5.1 04/03 Normal [facility] CHEMISTRY Chloride Lvl 98 95 - 109 04/03 Normal [facility] CHEMISTRY Glucose Lvl 266 70 - 99 04/03 HI <sup>6</sup>I nterpretive Medical Data: Adult Center reference range values reflect the clinical guidelines
of the [employer]. CHEMISTRY BUN 3 7 - 22 04/03 LOW [facility] CHEMISTRY eGFR 109 04/03 NA [...] 10.5 12.0 - 04/03 LOW [place] 16.0 [facility] HEMATOLOGY RBC 4.22 4.20 - 04/03 Normal [place] 5.40 [facility] HEMATOLOGY WBC 10.3 3.7 - 10.4 04/03 Normal [facility] HEMATOLOGY Hct 33.5 36.0 - 04/03 LOW [place] 48.0 [facility] HEMATOLOGY MPV 8.8 7.4 - 10.4 04/03 Normal [facility] HEMATOLOGY Platelet 276 133 - 450 04/03 Normal [facility] HEMATOLOGY RDW 18.7 11.5 - 04/03 HI [place] 14.5 /2012 Medical [place] HEMATOLOGY MCHC 31.2 32.0 - 07 LOW [place] 36.0 /2012 Medical [place] HEMATOLOGY MCH 24.8 27.0 - 04/03 LOW [place] 31.0 /2012 Medical [place] HEMATOLOGY MCV 79.5 81.0 - 04/03 LOW [place] 99.0 /2012 Medical [place] HEMATOLOGY Segs 58.6 45.0 - 04/03 Normal [place] 75.0 /2012 [facility] HEMATOLOGY Lymphocytes 29.9 20.0 - 04/03 Normal [place] 40.0 [facility] HEMATOLOGY Basophils 1.3 0.0 - 1.0 04/03 HI [facility] HEMATOLOGY Lymphocytes # 3.1 1.0 - 5.5 04/03 Normal [facility] HEMATOLOGY Segs-Bands # 6.0 1.5 - 8.1 04/03 Normal [facility] HEMATOLOGY Eosinophils 2.8 0.0 - 4.0 04/03 Normal [facility] HEMATOLOGY Eosinophils # 0.3 0.0 - 0.5 04/03 Normal [facility] HEMATOLOGY Monocytes # 0.8 0.0 - 0.8 04/03 Normal [facility] HEMATOLOGY Basophils # 0.1 0.0 - 0.2 04/03 Normal [facility] HEMATOLOGY Monocytes 7.4 2.0 - 12.0 04/03 Normal [facility] CHEMISTRY Troponin-I <0.02 0.00 - 04/03 Normal [place] 0.40 [facility] CHEMISTRY Total CK 51 12 - 191 04/03 Normal [facility] CHEMISTRY Troponin-T <0.010 0.000 - 04/03 Normal [place] 0.100 [facility] CHEMISTRY Bili Direct 0.1 0.0 - 0.3 04/03 Normal [facility] CHEMISTRY Bili Total 0.4 0.2 - 1.3 04/03 Normal [facility] CHEMISTRY Bili Indirect 0.3 0.0 - 1.0 04/03 Normal [facility] CHEMISTRY ALT 22 0 - 65 04/03 Normal [facility] CHEMISTRY AST 31 0 - 37 04/03 Normal [facility] CHEMISTRY Lipase Lvl 54 73 - 393 04/03 LOW [facility] CHEMISTRY Troponin-I <0.02 0.00 - 04/02 Normal [facility] 0.40 [facility] CHEMISTRY Total CK 24 12 - 191 04/02 Normal [facility] CHEMISTRY AGAP 17.5 10.0 - 04/02 Normal [facility] 20.0 [facility] CHEMISTRY eGFR 88 04/02 NA [...] Creatinine 0.8 0.5 - 1.4 04/02 Normal [facility] CHEMISTRY Potassium Lvl 3.5 3.5 - 5.1 04/02 Normal [facility] CHEMISTRY Chloride Lvl 97 95 - 109 04/02 Normal [facility] CHEMISTRY Glucose Lvl 163 70 - 99 04/02 HI <sup>7</sup>I nterpretive Medical Data: Adult Center reference range values reflect the clinical guidelines
of the [employer]. CHEMISTRY BUN 2 7 - 22 04/02 LOW [facility] CHEMISTRY Sodium Lvl 136 135 - 145 04/02 Normal [facility] CHEMISTRY Calcium Lvl 8.6 8.5 - 10.5 04/02 Normal [facility] CHEMISTRY CO2 25 24 - 32 04/02 Normal [facility] HEMATOLOGY Platelet 378 133 - 450 04/02 Normal [facility] HEMATOLOGY MCHC 33.4 32.0 - 04/02 Normal [place] 36.0 /2012 [facility] HEMATOLOGY RDW 17.3 11.5 - 04/02 HI [place] 14.5 [facility] HEMATOLOGY MCV 76.0 81.0 - 04/02 LOW [place] 99.0 /2012 [facility] HEMATOLOGY MCH 25.4 27.0 - 04/02 LOW [place] 31.0 /2012 [facility] HEMATOLOGY Hct 34.2 36.0 - 04/02 LOW [place] 48.0 /2012 [facility] HEMATOLOGY RBC 4.50 4.20 - 04/02 Normal [place] 5.40 /2012 [facility] HEMATOLOGY Hgb 11.4 12.0 - 04/[address] [facility] [place] 16.0 /2012 [facility] HEMATOLOGY WBC 9.0 3.7 - 10.4 04/02 Normal [facility] HEMATOLOGY MPV 8.4 7.4 - 10.4 04/02 Normal [facility] HEMATOLOGY Microcyte 2+ None Seen 04/02 ABN [place] *ABN* /2012 Medical (04/02/2013 17:09:00) [place] HEMATOLOGY Basophils # 0.1 0.0 - 0.2 04/02 Normal [facility] HEMATOLOGY Eosinophils # 0.1 0.0 - 0.5 04/02 Normal [facility] HEMATOLOGY Monocytes # 0.7 0.0 - 0.8 04/02 Normal [facility] HEMATOLOGY Lymphocytes # 1.4 1.0 - 5.5 04/02 Normal [facility] HEMATOLOGY Segs-Bands # 6.7 1.5 - 8.1 04/02 Normal [facility] HEMATOLOGY Basophils 1.3 0.0 - 1.0 04/02 HI [facility] HEMATOLOGY Lymphocytes 15.2 20.0 - 04/02 LOW [place] 40.0 /2012 [facility] HEMATOLOGY Segs 74.3 45.0 - 04/02 Normal [place] 75.0 /2012 [facility] HEMATOLOGY Eosinophils 1.6 0.0 - 4.0 04/02 Normal [facility] HEMATOLOGY Monocytes 7.6 2.0 - 12.0 04/02 Normal [facility] BEDSIDE Gluc POC 229 70 - 99 03/09 [place] <sup>1</sup>I [facility] GLUCOSE Lifscn /2012 nterpretive Medical TESTING Data: Center Upper Reportable Limit: 200 mg/dL. BEDSIDE Comment1 Notify 03/09 NA [facility] GLUCOSE RN/MD Medical TESTING Center CHEMISTRY eGFR [...] BUN 7 7 - 22 07 Normal [facility] CHEMISTRY Creatinine 0.8 0.5 - 1.4 03/[address] [facility] CHEMISTRY Sodium Lvl 138 135 - 145 03/09 [facility] CHEMISTRY Potassium Lvl 4.7 3.5 - 5.1 03/09 [facility] CHEMISTRY Chloride Lvl 104 95 - 109 03/09 Normal [facility] CHEMISTRY CO2 23 24 - 32 03/09 [facility] CHEMISTRY Bili Total 0.2 0.2 - 1.3 03/09 [facility] CHEMISTRY AST 22 0 - 37 / [facility] CHEMISTRY Total Protein 4.8 6.4 - 8.4 03/09 [facility] CHEMISTRY Calcium Lvl 7.4 8.5 - 10.5 03/09 [facility] CHEMISTRY Albumin Lvl 1.9 3.5 - 5.0 / [facility] CHEMISTRY Glucose Lvl 192 70 - 99 07 HI <sup>7</sup>I nterpretive Medical Data: Adult Center reference range values reflect the clinical guidelines
of the [employer]. CHEMISTRY Alk Phos 162 39 - 136 07/ HI [facility] CHEMISTRY ALT 18 0 - 65 07 Normal [facility] CHEMISTRY A/G Ratio 0.7 0.7 - 1.6 03/09 Normal [facility] CHEMISTRY Globulin 2.9 2.0 - 4.0 07/ Normal [facility] CHEMISTRY AGAP 15.7 10.0 - 07/ Normal [place] 20.0 /2012 [facility] CHEMISTRY B/C Ratio 9 6 - 25 07 Normal [facility] HEMATOLOGY Eosinophils 1.9 0.0 - 4.0 07/ Normal [facility] HEMATOLOGY Basophils 1.0 0.0 - 1.0 03/09 Normal [facility] HEMATOLOGY Anisocyte 1+ None Seen 03/09 [facility] *ABN* /2012 [facility] (03/09/2013 01:09:00) [place] HEMATOLOGY Lymphocytes # 2.0 1.0 - 5.5 07/ Normal [facility] HEMATOLOGY Monocytes # 0.6 0.0 - 0.8 07 Normal [facility] HEMATOLOGY Eosinophils # 0.1 0.0 - 0.5 07/ Normal [facility] HEMATOLOGY Basophils # 0.1 0.0 - 0.2 07/ Normal [facility] HEMATOLOGY Segs-Bands # 4.6 1.5 - 8.1 07 Normal [facility] HEMATOLOGY Segs 62.8 45.0 - 07 Normal [place] 75.0 /2012 [facility] HEMATOLOGY Lymphocytes 26.4 20.0 - 07/04 Normal [place] 40.0 /2012 [facility] HEMATOLOGY Monocytes 7.9 2.0 - 12.0 07/ Normal [facility] HEMATOLOGY RDW 20.7 11.5 - 07/04 HI [place] 14.5 /2012 [facility] HEMATOLOGY Platelet 304 133 - 450 07/ Normal [facility] HEMATOLOGY MPV 8.0 7.4 - 10.4 07 Normal [facility] HEMATOLOGY Hct 24.9 36.0 - 07/ [facility] [place] 48.0 /2013 Medical Center HEMATOLOGY MCV 79.3 81.0 - 07/ [facility] [place] 99.0 /2012 Medical Center HEMATOLOGY MCH 24.7 27.0 - 07/ [facility] [place] 31.0 /2012 Medical [place] HEMATOLOGY MCHC 31.2 32.0 - 07/ [facility] [place] 36.0 /2012 [facility] HEMATOLOGY RBC 3.14 4.20 - 07/ [facility] [place] 5.40 /2012 [facility] HEMATOLOGY Hgb 7.8 12.0 - 07/ [facility] [place] 16.0 /2012 [facility] HEMATOLOGY WBC 7.4 3.7 - 10.4 07/ Normal [facility] BEDSIDE Gluc POC 131 70 - 99 03/09 [place] <sup>2</sup>I [facility] GLUCOSE md nterpretive Medical TESTING Data: [place] Upper Reportable Limit: 200 mg/dL. BEDSIDE Comment1 Notify 03/09 NA [facility] GLUCOSE RN/MD [facility] TESTING Center BEDSIDE Comment1 Notify 03/09 [facility] GLUCOSE RN/MD /2012 [facility] TESTING Center BEDSIDE Gluc POC 155 70 - 99 03/09 [place] <sup>3</sup>I [facility] GLUCOSE [facility] nterpretive Medical TESTING Data: Center Upper Reportable Limit: 200 mg/dL. CHEMISTRY Magnesium Lvl 1.5 1.8 - 2.4 03/[address] [facility] CHEMISTRY A/G Ratio 0.7 0.7 - 1.6 03/08 Normal [facility] CHEMISTRY B/C Ratio 8 6 - 25 03/08 Normal [facility] CHEMISTRY Globulin 2.8 2.0 - 4.0 03/08 [facility] CHEMISTRY AGAP 15.8 10.0 - 07/03 [facility] [place] 20.0 [facility] CHEMISTRY Potassium Lvl 3.8 3.5 - 5.1 07/ [facility] CHEMISTRY Chloride Lvl 100 95 - 109 07/ Normal [facility] CHEMISTRY CO2 23 24 - 32 07/ [facility] CHEMISTRY Total Protein 4.8 6.4 - 8.[address] [facility] CHEMISTRY AST 10 0 - 37 07/ Normal Medical Center CHEMISTRY Calcium Lvl 7.6 8.5 - 10.5 03/[address] [facility] CHEMISTRY Bili Total 0.3 0.2 - 1.3 03/08 Normal [facility] CHEMISTRY eGFR 88 03/08 NA [...] the clinical guidelines
of the [employer]. CHEMISTRY BUN 6 7 - 22 03/08 [facility] CHEMISTRY Creatinine 0.8 0.5 - 1.4 03/[address] [facility] CHEMISTRY Sodium Lvl 135 135 - 145 03/08 Normal [facility] CHEMISTRY Alk Phos 173 39 - 136 03/08 HI [facility] CHEMISTRY ALT 16 0 - 65 / Normal [facility] CHEMISTRY Albumin Lvl 2.0 3.5 - 5.0 03/08 [facility] CHEMISTRY Lipase Lvl 54 73 - 393 03/08 [facility] CHEMISTRY Amylase Lvl 30 25 - 115 / [facility] HEMATOLOGY Basophils # 0.1 0.0 - 0.2 03/08 [facility] HEMATOLOGY Anisocyte 1+ None Seen 07/03 ABN [facility] [place] *ABN* /2012 Medical (03/08/2013 03:01:00) Center HEMATOLOGY Microcyte 1+ None Seen 03/08 [facility] [place] *ABN* /2012 Medical (03/08/2013 03:01:00) Center HEMATOLOGY Eosinophils # 0.2 0.0 - 0.5 07 Normal [facility] HEMATOLOGY Monocytes # 0.8 0.0 - 0.8 03/08 Normal [facility] HEMATOLOGY Lymphocytes 34.2 20.0 - 07 Normal [place] 40.0 /2012 [facility] HEMATOLOGY Segs 53.3 45.0 - 07 Normal [place] 75.0 /2012 [facility] HEMATOLOGY Lymphocytes # 3.0 1.0 - 5.5 07 Normal [facility] HEMATOLOGY Segs-Bands # 4.7 1.5 - 8.1 07 Normal /2012 [facility] HEMATOLOGY Basophils 0.9 0.0 - 1.0 / Normal [facility] HEMATOLOGY Eosinophils 2.6 0.0 - 4.0 07 Normal [facility] HEMATOLOGY Monocytes 9.0 2.0 - 12.0 07/ Normal [facility] HEMATOLOGY Hgb 7.9 12.0 - [address] [facility] [place] 16.0 /2012 [facility] HEMATOLOGY RBC 3.12 4.20 - [address] [facility] [place] 5.40 /2012 [facility] HEMATOLOGY MPV 8.0 7.4 - 10.4 07 Normal [facility] HEMATOLOGY Platelet 294 133 - 450 07 Normal [facility] HEMATOLOGY MCH 25.3 27.0 - [address] [facility] [place] 31.0 /2012 [facility] HEMATOLOGY MCV 79.7 81.0 - 07/[address] [facility] [place] 99.0 /2012 [facility] HEMATOLOGY Hct 24.9 36.0 - [address] [facility] [place] 48.0 /2012 [facility] HEMATOLOGY WBC 8.8 3.7 - 10.4 07 Normal [facility] HEMATOLOGY RDW 21.4 11.5 - 07/03 [facility] [place] 14.5 /2012 [facility] HEMATOLOGY MCHC 31.8 32.0 - 07/[address] [facility] [place] 36.0 /2012 [facility] CHEMISTRY Troponin-I <0.02 0.00 - 07/02 Normal [place] 0.40 [facility] CHEMISTRY Total CK 26 12 - 191 07/ Normal [facility] CHEMISTRY A/G Ratio 0.6 0.7 - 1.6 07/ LOW [facility] CHEMISTRY Bili Total 0.6 0.2 - 1.3 07/ Normal [facility] CHEMISTRY Bili Direct 0.3 0.0 - 0.3 07/ Normal [facility] CHEMISTRY Alk Phos 190 39 - 136 07 HI [facility] CHEMISTRY Total Protein 5.2 6.4 - 8.4 07/ [facility] CHEMISTRY Globulin 3.2 2.0 - 4.0 07/ Normal [facility] CHEMISTRY Bili Indirect 0.3 0.0 - 1.0 07/ Normal [facility] CHEMISTRY AST 11 0 - 37 07/ Normal [facility] CHEMISTRY Albumin Lvl 2.0 3.5 - 5.[address] [facility] CHEMISTRY ALT 19 0 - 65 07 Normal [facility] CHEMISTRY Amylase Lvl 26 25 - 115 07/ Normal [facility] CHEMISTRY Lipase Lvl 49 73 - 393 07/ LOW [facility] HEMATOLOGY MPV 8.3 7.4 - 10.4 07/ Normal [facility] HEMATOLOGY MCH 24.7 27.0 - 07/ [facility] [place] 31.0 /2012 Medical [place] HEMATOLOGY MCHC 32.6 32.0 - 07/ Normal [place] 36.0 /2012 Medical [place] HEMATOLOGY RDW 20.1 11.5 - 07/ [facility] [place] 14.5 /2012 Medical [place] HEMATOLOGY Platelet 362 133 - 450 07/ Normal [facility] HEMATOLOGY MCV 75.7 81.0 - 07/ [facility] [place] 99.0 /2012 Medical [place] HEMATOLOGY Hgb 8.8 12.0 - 07/ [facility] [place] 16.0 /2012 Medical [place] HEMATOLOGY Hct 26.9 36.0 - 07/ [facility] [place] 48.0 /2012 [facility] HEMATOLOGY RBC 3.56 4.20 - 07/ [facility] [place] 5.40 /2012 Medical [place] HEMATOLOGY WBC 11.1 3.7 - 10.4 07/ [facility] Medical [place] HEMATOLOGY Lymphocytes # 2.4 1.0 - 5.5 07/ [facility] /2013 [facility] HEMATOLOGY Hypochrom Slight None Seen 03/07 Normal [facility] (03/07/2013 07:43:59) [facility] HEMATOLOGY Microcyte 2+ None Seen 03/07 [facility] Medical (03/07/2013 07:43:59) [place] HEMATOLOGY Anisocyte 1+ None Seen 03/07 [facility] *ABN* Medical (03/07/2013 07:43:59) Center HEMATOLOGY Basophils # 0.1 0.0 - 0.2 03/07 Normal [facility] HEMATOLOGY Polychrom Slight None Seen 03/07 Normal [facility] (03/07/2013 07:43:59) [facility] HEMATOLOGY Basophils 0.8 0.0 - 1.0 03/07 Normal [facility] HEMATOLOGY Eosinophils 1.3 0.0 - 4.0 03/07 Normal [facility] HEMATOLOGY Segs-Bands # 7.6 1.5 - 8.1 03/07 [facility] HEMATOLOGY Monocytes 8.1 2.0 - 12.0 03/07 Normal [facility] HEMATOLOGY Monocytes # 0.9 0.0 - 0.8 03/07 HI [facility] HEMATOLOGY Eosinophils # 0.1 0.0 - 0.5 03/07 [facility] HEMATOLOGY Target Cell Slight None Seen 03/07 [facility] *ABN* Medical (03/07/2013 07:43:59) [place] HEMATOLOGY Plt Morph Normal 03/07 [facility] (03/07/2013 07:43:59) [facility] HEMATOLOGY Lymphocytes 22.0 20.0 - 03/07 [facility] 40.0 [facility] HEMATOLOGY Segs 67.8 45.0 - 07 Normal [facility] 75.0 [facility] CHEMISTRY Lactic Acid 1.7 0.5 - 2.2 03/07 Normal [facility] Lvl [facility] CHEMISTRY Total CK 21 12 - 191 03/07 Normal [facility] CHEMISTRY Troponin-I <0.02 0.00 - 07 Normal [facility] 0.40 /2012 [facility] CHEMISTRY eGFR 104 03/07 NA [...] CO2 27 24 - 32 03/07 Normal [facility] CHEMISTRY Potassium Lvl 3.6 3.5 - 5.1 03/07 [facility] CHEMISTRY Chloride Lvl 99 95 - 109 03/07 [facility] CHEMISTRY Sodium Lvl 134 135 - [address] [facility] CHEMISTRY BUN 5 7 - [address] [facility] CHEMISTRY Creatinine 0.7 0.5 - 1.4 03/[address] [facility]2012 [facility] CHEMISTRY Glucose Lvl 233 70 - 99 03/07 HI <sup>9</sup>I nterpretive Medical Data: Adult Center reference range values reflect the clinical guidelines
of the [employer]. CHEMISTRY Calcium Lvl 7.7 8.5 - 10.5 03/[address] [facility] CHEMISTRY AGAP 11.6 10.0 - 07 [facility] 20.0 /2012 [facility] CHEMISTRY Temp Art 37.0 03/07 NA [facility] CHEMISTRY pH Art 7.41 7.35 - 07 [facility] 7.45 /2012 [facility] CHEMISTRY pCO2 Art 34 35 - [address] [facility] CHEMISTRY O2 Sat Art 97.5 95.0 - 07/ [facility] 100.0 /2012 [facility] CHEMISTRY HCO3 Art 22 22 - 26 07 [facility] CHEMISTRY BE Art -2 -2-2 - 2 03/07 [facility] /2013 Medical Center CHEMISTRY pO2 Art 96 [...] pH Mark 7.46 7.28 - 03/07 HI [facility] 7.42 /2012 Medical Center CHEMISTRY Lactic Acid 2.6 0.5 - 2.2 03/07 HI [facility] Lvl /2012 Medical Center CHEMISTRY Phosphorus 3.1 2.5 - 4.5 03/07 Normal [facility] CHEMISTRY Magnesium Lvl 1.6 1.8 - 2.4 03/07 LOW [facility] CHEMISTRY Total CK 31 12 - 191 03/07 Normal [facility] CHEMISTRY Troponin-I <0.02 0.00 - 03/07 Normal [facility] 0.40 /2012 Medical Center CHEMISTRY U Preg Negative Negative 03/06 Normal [facility] (03/06/2013 18:25:00) Medical Center URINALYSIS UA Amorph Occasional /HPF None Seen 03/06 ABN [facility] [place] *ABN* /2012 Medical (03/06/2013 18:25:00) Center URINALYSIS UA Mucus Few /LPF None Seen 03/06 Normal [facility] (03/06/2013 18:25:00) Medical Center URINALYSIS Micro? Performed 03/06 Normal [facility] (03/06/2013 18:25:00) Medical Center URINALYSIS UA Sq Epi Moderate /LPF Few 03/06 ABN [facility] *ABN* /2012 Medical (03/06/2013 18:25:00) Center URINALYSIS UA WBC 0-2 /HPF None Seen 03/06 Normal [facility] (03/06/2013 18:25:00) Medical Center URINALYSIS UA RBC None Seen 0 - 2 03/06 Normal [facility] (03/06/2013 18:25:00) Medical Center URINALYSIS UA Bacteria Few /HPF None Seen 03/06 Normal [facility] (03/06/2013 18:25:00) Medical Center URINALYSIS UA Bili Negative Negative 03/06 NA [facility] *NA* Medical (03/06/2013 18:25:00) Center URINALYSIS UA 0.2 0.1 - 1.0 03/06 Normal [facility] Urobilinogen /2012 Medical Center URINALYSIS UA Nitrite Negative Negative 03/06 Normal [facility] (03/06/2013 18:25:00) Medical Center URINALYSIS UA Leuk Est Trace Negative 03/06 ABN [facility] *ABN* Medical (03/06/2013 18:25:00) Center URINALYSIS UA Blood Negative Negative 03/06 Normal [facility] (03/06/2013 18:25:00) Medical Center URINALYSIS UA Ketones 40 mg/dL Negative 03/06 [facility] (03/06[facility]2013 18:25:00) Center URINALYSIS UA Turbidity Clear Clear 03/06 Normal [facility] (03/06/2013 18:25:00) Medical Center URINALYSIS UA Color Yellow Yellow 03/06 NA [facility] *NA* Medical (03/06/2013 18:25:00) Center URINALYSIS UA Spec Grav 1.015 <=1.030 03/06 Normal [facility] Medical Center URINALYSIS UA Protein Negative Negative 03/06 Normal [facility] (03/06/2013 18:25:00) Medical Center URINALYSIS UA Glucose 250 mg/dL Negative [facility] Center URINALYSIS UA pH 7.5 5.0 - 8.0 03/06 Normal [facility] Medical Center BEDSIDE Comment1 Notify 12/07 NA [facility] GLUCOSE RN/MD /2012 Medical TESTING Center BEDSIDE Gluc POC 64 70 - 99 12/07 LOW <sup>3</sup>I [facility] Data: Center Upper Reportable Limit: 200 mg/dL. BEDSIDE Gluc POC 50 70 - 99 12/07 LOW <sup>4</sup>I [facility] TEST[facility] Data: Center Upper Reportable Limit: 200 mg/dL. BEDSIDE Comment1 Notify 12/07 NA [facility] GLUCOSE RN/ /2012 Medical TESTING Center BEDSIDE Gluc POC 45 70 - 99 12/07 LOW <sup>5</sup>I [facility] GLUCOSE [facility] /2012 nterpretive Medical TESTING Data: Center Upper Reportable Limit: 200 mg/dL. BEDSIDE Comment1 Notify 12/07 NA [facility] GLUCOSE RN/ /2012 Medical TESTING Center CHEMISTRY eGFR 109 12/07 NA <sup>7</sup>R [facility] esult Medical Comment: The Center eGFR is [...] Lvl 8.3 8.5 - 10.5 12/07 LOW [facility] CHEMISTRY AGAP 12.8 10.0 - 12/07 [facility] 20.0 [facility] CHEMISTRY BUN 2 7 - 22 12/07 LOW [facility] CHEMISTRY Glucose Lvl 95 70 - 99 12/07 Normal <sup>10</sup> Interpretive Medical Data: Adult Center reference range values reflect the clinical guidelines
of the [employer]. CHEMISTRY Potassium Lvl 3.8 3.5 - 5.1 12/07 Normal [facility] CHEMISTRY Creatinine 0.6 0.5 - 1.4 12/07 Normal [facility] Lvl [facility] CHEMISTRY Sodium Lvl 140 135 - 145 12/07 Normal [facility] CHEMISTRY Chloride Lvl 105 95 - 109 12/07 Normal [facility] CHEMISTRY CO2 26 24 - 32 12/07 Normal [facility] BEDSIDE Comment2 Verify 12/06 NA [facility] GLUCOSE w/Lab /2012 [facility] TESTING Center BEDSIDE Comment2 Verify 12/06 NA [facility] GLUCOSE w/Lab /2012 [facility] TESTING Center CHEMISTRY AGAP 13.5 10.0 - 12/06 Normal [facility] 20.0 /2012 [facility] CHEMISTRY Calcium Lvl 8.1 8.5 - 10.5 12/[address] [facility] CHEMISTRY CO2 28 24 - 32 12/06 Normal [facility] CHEMISTRY Chloride Lvl 101 95 - 109 12/06 Normal [facility] CHEMISTRY eGFR 104 12/06 NA [...] the clinical guidelines
of the [employer]. CHEMISTRY BUN 2 7 - 22 12/[address] [facility] CHEMISTRY Creatinine 0.7 0.5 - 1.4 12/[address] [facility] CHEMISTRY Sodium Lvl 139 135 - 145 12/06 [facility] CHEMISTRY Potassium Lvl 3.5 3.5 - 5.1 12/06 Normal [facility] CHEMISTRY Lipase Lvl 62 73 - 393 12/[address] [facility] CHEMISTRY Alk Phos 92 39 - 136 / Normal [facility] CHEMISTRY Albumin Lvl 2.7 3.5 - 5.0 / LOW [facility] CHEMISTRY Total Protein 5.8 6.4 - 8.4 / LOW [facility] CHEMISTRY Globulin 3.1 2.0 - 4.0 / Normal [facility] CHEMISTRY A/G Ratio 0.9 0.7 - 1.6 / Normal [facility] CHEMISTRY AST 74 0 - 37 / HI [facility] CHEMISTRY ALT 50 0 - 65 / Normal [facility] CHEMISTRY Bili Indirect 0.1 0.0 - 1.0 12/06 Normal [facility] CHEMISTRY Bili Total 0.2 0.2 - 1.3 12/06 Normal [facility] CHEMISTRY Bili Direct 0.1 0.0 - 0.3 12/06 Normal [facility] CHEMISTRY eGFR 109 12/05 NA [...] the clinical guidelines
of the [employer]. CHEMISTRY Creatinine 0.6 0.5 - 1.4 12/05 Normal [place] Lvl /2012 Medical [place] CHEMISTRY BUN 1 7 - 22 04 LOW Medical [place] CHEMISTRY Chloride Lvl 102 95 - 109 04 Normal [facility] CHEMISTRY Potassium Lvl 3.3 3.5 - 5.1 12/[address] [facility] CHEMISTRY Sodium Lvl 140 135 - 145 12/05 Normal [facility] CHEMISTRY Calcium Lvl 7.9 8.5 - 10.5 12/[address] [facility] CHEMISTRY CO2 29 24 - 32 04 Normal [facility] CHEMISTRY AGAP 12.3 10.0 - 04 Normal [place] 20.0 [facility] CHEMISTRY Ca Norm mgdL 4.84 4.65 - 12/03 Normal [place] 01.23 [facility] CHEMISTRY Ca Ion mgdL 4.84 4.65 - 12/03 Normal [place] 5. [facility] CHEMISTRY Ca Ion 1.21 1.16 - 12/03 Normal [place] 10.05 [facility] CHEMISTRY Ca Norm 1.21 1.16 - 12/03 Normal [place] 1. [facility] CHEMISTRY Magnesium Lvl 1.8 1.8 - 2.4 12/03 Normal [facility] CHEMISTRY Phosphorus 3.4 2.5 - 4.5 12/03 Normal [facility] HEMATOLOGY Lymphocytes # 1.8 1.0 - 5.5 12/03 Normal [facility] HEMATOLOGY Lymphocytes 23.6 20.0 - 12/03 Normal [place] 40.0 [facility] HEMATOLOGY Eosinophils 2.9 0.0 - 4.0 12/03 Normal [facility] HEMATOLOGY Monocytes 9.1 2.0 - 12.0 12/03 Normal [facility] HEMATOLOGY Basophils 0.6 0.0 - 1.0 12/03 Normal [facility] HEMATOLOGY Segs-Bands # 5.0 1.5 - 8.1 12/03 Normal [facility] HEMATOLOGY Segs 63.8 45.0 - 12/03 Normal [place] 75.0 /2012 [facility] HEMATOLOGY Monocytes # 0.7 0.0 - 0.8 12/03 Normal [facility] HEMATOLOGY Eosinophils # 0.2 0.0 - 0.5 12/03 Normal [facility] HEMATOLOGY Microcyte 1+ None Seen 12/03 ABN [facility] *ABN* /2012 Medical (12/03/2012 01:02:00) Center HEMATOLOGY WBC 7.8 3.7 - 10.4 12/03 Normal [facility] HEMATOLOGY Hct 27.8 36.0 - 12/03 LOW [facility] 48.0 /2012 [facility] HEMATOLOGY MPV 8.5 7.4 - 10.4 12/03 Normal [facility] HEMATOLOGY MCHC 32.4 32.0 - 12/03 Normal [facility] 36.0 /2012 [facility] HEMATOLOGY RDW 18.9 11.5 - 12/03 HI [facility] 14.5 /2012 [facility] HEMATOLOGY MCH 24.6 27.0 - 12/03 LOW [facility] 31.0 /2012 [facility] HEMATOLOGY RBC 3.66 4.20 - 12/03 LOW [facility] 5.40 /2012 [facility] HEMATOLOGY MCV 75.9 81.0 - 12/03 LOW [facility] 99.0 /2012 [facility] HEMATOLOGY Platelet 224 133 - 450 12/03 Normal [facility] HEMATOLOGY Hgb 9.0 12.0 - 12/03 LOW [facility] 16.0 /2012 [facility] Microbiolog Culture: 12/02 [facility] y Blood /2012 [facility] Microbiolog Culture: MRSA 12/02 [facility] y /2012 [facility] Microbiolog Culture: 12/02 [facility] y Resistant [facility] Center Screen CHEMISTRY Ketone 1.42 <=0.27 12/02 [facility] Quantitative [facility] URINALYSIS UA WBC 1 0 - 5 12/02 Normal [facility] URINALYSIS UA RBC <1 0 - 2 12/02 Normal [facility] URINALYSIS UA 0.1 - 1.0 12/02 NA [facility] Urobilinogen /2012 [facility] URINALYSIS UA Sq Epi Moderate /LPF Few 12/02 ABN [facility] *ABN* Medical (12/02/2012 04:02:55) Center URINALYSIS UA Leuk Est Negative Negative 12/02 Normal [facility] (12/02/2012 04:02:55) Medical Center URINALYSIS UA Nitrite Negative Negative 12/02 Normal [facility] (12/02/2012 04:02:55) Medical Center URINALYSIS UA Mucus Few /LPF None Seen 12/02 [facility] *NA* /2012 Medical (12/02/2012 04:02:55) Center URINALYSIS UA Ketones 40 mg/dL Negative 12/02 ABN [place] *ABN* Medical (12/02/2012 04:02:55) Center URINALYSIS UA Blood Negative Negative 12/02 Normal [facility] (12/02/2012 04:02:55) Medical Center URINALYSIS UA Glucose >=1000 mg/dL Negative 12/02 ABN [facility] *ABN* Medical (12/02/2012 04:02:55) Center URINALYSIS UA Bili Negative Negative 12/02 NA [facility] *NA* Medical (12/02/2012 04:02:55) Center URINALYSIS UA Protein Negative mg/dL Negative 12/02 Normal [facility] (12/02/2012 04:02:55) Medical Center URINALYSIS UA Turbidity Clear Clear 12/02 Normal [facility] (12/02/2012 04:02:55) Medical Center URINALYSIS UA pH 5.5 5.0 - 8.0 12/02 Normal [facility] URINALYSIS UA Spec Grav 1.010 <=1.030 12/02 Normal [facility] URINALYSIS UA Color Yellow Yellow 12/02 NA [facility] *NA* Medical (12/02/2012 04:02:55) Center HEMATOLOGY MPV 8.9 7.4 - 10.4 12/02 Normal [facility] HEMATOLOGY Hct 27.9 36.0 - 12/02 LOW [place] 48.0 /2012 [facility] HEMATOLOGY MCV 76.1 81.0 - 12/02 LOW [facility] 99.0 /2012 [facility] HEMATOLOGY MCH 25.2 27.0 - 12/02 LOW [place] 31.0 /2012 [facility] HEMATOLOGY MCHC 33.2 32.0 - 12/02 Normal [facility] 36.0 [facility] HEMATOLOGY RDW 19.3 11.5 - 12/02 HI [place] 14.5 [facility] HEMATOLOGY Platelet 224 133 - 450 12/02 Normal [facility] HEMATOLOGY WBC 8.6 3.7 - 10.4 12/02 Normal [facility] HEMATOLOGY Hgb 9.3 12.0 - 12/02 LOW [place] 16.0 /2012 [facility] HEMATOLOGY RBC 3.67 4.20 - 12/02 LOW [place] 5.40 /2012 [facility] HEMATOLOGY Segs-Bands # 6.4 1.5 - 8.1 12/02 Normal [facility] HEMATOLOGY Lymphocytes # 1.5 1.0 - 5.5 12/02 Normal [facility] HEMATOLOGY Eosinophils 0.6 0.0 - 4.0 12/02 Normal [facility] HEMATOLOGY Basophils 0.7 0.0 - 1.0 12/02 Normal [facility] HEMATOLOGY Lymphocytes 17.3 20.0 - 12/02 LOW [place] 40.0 [facility] HEMATOLOGY Monocytes # 0.7 0.0 - 0.8 12/02 Normal [facility] HEMATOLOGY Microcyte 1+ None Seen 12/02 ABN [place] *ABN* /2012 Medical (12/02/2012 04:02:51) [place] HEMATOLOGY Eosinophils # 0.1 0.0 - 0.5 12/02 Normal [facility] HEMATOLOGY Basophils # 0.1 0.0 - 0.2 12/02 Normal [facility] HEMATOLOGY Segs 73.8 45.0 - 12/02 Normal [place] 75.0 [facility] HEMATOLOGY Monocytes 7.6 2.0 - 12.0 12/02 Normal [facility] Microbiolog Culture: 12/02 y [facility] CHEMISTRY POC A Glu 305 70 - 99 12/02 HI [facility] CHEMISTRY POC A Hct 29.0 36.0 - 12/02 LOW [facility] 48.0 [facility] CHEMISTRY POC A O2 Sat 97.0 95.0 - 12/02 Normal 100.0 [facility] CHEMISTRY POC A K 3.4 3.5 - 5.1 12/02 LOW [facility] CHEMISTRY POC A Na 130 135 - 145 12/02 LOW [facility] CHEMISTRY POC A PCO2 38 35 - 45 12/02 Normal [facility] CHEMISTRY POC A BE 2 -2-2 - 2 12/02 Normal [facility] CHEMISTRY POC A HCO3 26 22 - 26 12/02 Normal [facility] CHEMISTRY POC A Source ART 12/02 NA [facility] CHEMISTRY POC A PO2 89 80 - 100 12/02 Normal [facility] CHEMISTRY POC A pH 7.44 7.35 - 12/02 Normal [facility] [place] 7.45 [facility] CHEMISTRY POC A Temp 37.0 12/02 NA [facility] CHEMISTRY POC A Ca Ion 1.12 1.16 - 12/02 LOW [place] 1.30 [facility] CHEMISTRY POC A LA 0.8 0.5 - 2.2 12/02 Normal [facility] CHEMISTRY Magnesium Lvl 1.9 1.8 - 2.4 12/02 Normal [facility] CHEMISTRY Phosphorus 2.7 2.5 - 4.5 12/02 Normal [facility] CHEMISTRY Ca Norm mgdL 4.36 4.65 - 12/02 LOW [place] 5. [facility] CHEMISTRY Ca Ion 1.14 1.16 - 12/02 LOW [place] 1.30 [facility] CHEMISTRY Ca Ion mgdL 4.56 4.65 - 12/02 LOW [place] 5. [facility] CHEMISTRY Ca Norm 1.09 1.16 - 12/02 LOW [place] 1. Medical [place] HEMATOLOGY Platelet 223 133 - 450 12/02 Normal [facility] HEMATOLOGY MPV 9.2 7.4 - 10.4 12/02 Normal [facility] HEMATOLOGY MCHC 32.3 32.0 - 12/02 Normal [place] 36.0 [facility] HEMATOLOGY RDW 19.2 11.5 - 12/02 HI [place] 14.5 Medical Center HEMATOLOGY WBC 7.6 3.7 - 10.4 12/02 Normal [facility] HEMATOLOGY Hgb 9.2 12.0 - 12/[address] [facility] [place] 16.0 [facility] HEMATOLOGY Hct 28.6 36.0 - 12/02 LOW [place] 48.0 /2012 [facility] HEMATOLOGY MCV 76.3 81.0 - 12/[address] [facility] [place] 99.0 /2012 Medical Center HEMATOLOGY MCH 24.6 27.0 - 12/02 LOW [place] 31.0 [facility] HEMATOLOGY RBC 3.74 4.20 - 12/02 LOW [place] 5.40 [facility] HEMATOLOGY Microcyte 1+ None Seen 12/02 ABN [place] *ABN* /2012 Medical (12/02/2012 03:00:00) Center HEMATOLOGY Basophils # 0.1 0.0 - 0.2 12/02 Normal Medical Center HEMATOLOGY Monocytes # 0.6 0.0 - 0.8 12/02 Normal [facility] HEMATOLOGY Lymphocytes # 1.9 1.0 - 5.5 12/02 Normal [facility] HEMATOLOGY Segs-Bands # 5.0 1.5 - 8.1 12/02 Normal [facility] HEMATOLOGY Segs 65.5 45.0 - 12/02 Normal [place] 75.0 /2012 [facility] HEMATOLOGY Lymphocytes 25.0 20.0 - 12/02 Normal [place] 40.0 /2012 [facility] HEMATOLOGY Monocytes 8.4 2.0 - 12.0 12/02 Normal [facility] HEMATOLOGY Eosinophils 0.4 0.0 - 4.0 12/02 Normal [facility] HEMATOLOGY Basophils 0.7 0.0 - 1.0 12/02 Normal [facility] CHEMISTRY Magnesium Lvl 2.0 1.8 - 2.4 12/01 Normal [facility] CHEMISTRY Ca Norm mgdL 4.48 4.65 - 12/01 LOW [facility] 5. [facility] CHEMISTRY Ca Ion mgdL 4.68 4.65 - 12/01 Normal [facility] 5. [facility] CHEMISTRY Ca Ion 1.17 1.16 - 12/01 Normal [facility] 1. [facility] CHEMISTRY Ca Norm 1.12 1.16 - 12/01 LOW [facility] 1. [facility] CHEMISTRY Phosphorus 2.7 2.5 - 4.5 12/01 Normal [facility] URINALYSIS UA 0.1 - 1.0 11/30 NA [facility] Urobilinogen [facility] URINALYSIS UA Mucus Few /LPF None Seen 11/30 NA [facility] *NA* /2012 Medical (11/30/2012 17:41:33) Center URINALYSIS UA WBC <1 0 - 5 11/30 Normal [facility] URINALYSIS UA Sq Epi Moderate /LPF Few 11/30 ABN [facility] *ABN* Medical (11/30/2012 17:41:33) Center URINALYSIS UA Protein Negative mg/dL Negative 11/30 Normal [facility] (11/30/2012 17:41:33) Medical Center URINALYSIS UA pH 5.0 5.0 - 8.0 11/30 Normal [facility] URINALYSIS UA Spec Grav 1.004 <=1.030 11/30 Normal Medical Center URINALYSIS UA Turbidity Clear Clear 11/30 Normal [facility] (11/30/2012 17:41:33) Medical Center URINALYSIS UA Color Light Yellow Yellow 11/30 NA [facility] *NA* Medical (11/30/2012 17:41:33) Center URINALYSIS UA Leuk Est Negative Negative 11/30 Normal [facility] (11/30/2012 17:41:33) Medical Center URINALYSIS UA Nitrite Negative Negative 11/30 Normal [facility] (11/30/2012 17:41:33) Medical Center URINALYSIS UA Blood Negative Negative 11/30 Normal [facility] (11/30/2012 17:41:33) Medical Center URINALYSIS UA Bili Negative Negative 11/30 NA [facility] *NA* Medical (11/30/2012 17:41:33) Center URINALYSIS UA Ketones 10 mg/dL Negative 11/30 ABN [facility] *ABN* Medical (11/30/2012 17:41:33) Center URINALYSIS UA Glucose Negative mg/dL Negative 11/30 NA [facility] *NA* Medical (11/30/2012 17:41:33) Center CHEMISTRY Ketone 1.65 <=0.27 11/30 HI [facility] Medical Center HEMATOLOGY PT 14.1 12.0 - 11/30 Normal [facility] 14.7 Medical Center HEMATOLOGY PTT 28.1 22.9 - 11/30 Normal <sup>18</sup> [facility] 35.8 Interpretive Medical Data: [facility] Therapeutic Range: 57 - 92 Seconds HEMATOLOGY INR 1.07 0.85 - 11/30 Normal <sup>16</sup> [facility] 1. Interpretive Medical Data: Center RECOMMENDED RANGES [...] ranges. CHEMISTRY U Chloride 134 11/30 NA [facility] CHEMISTRY Bili Total 0.4 0.2 - 1.3 11/30 Normal [facility] CHEMISTRY Total Protein 6.3 6.4 - 8.4 11/30 LOW [facility] CHEMISTRY Albumin Lvl 2.9 3.5 - 5.0 11/30 LOW [facility] CHEMISTRY Alk Phos 127 39 - 136 11/30 Normal [facility] CHEMISTRY Bili Direct 0.2 0.0 - 0.3 11/30 Normal [facility] CHEMISTRY AST 22 0 - 37 11/30 Normal [facility] CHEMISTRY ALT 20 0 - 65 11/30 Normal [facility] CHEMISTRY A/G Ratio 0.9 0.7 - 1.6 11/30 Normal [facility] CHEMISTRY Bili Indirect 0.2 0.0 - 1.0 11/30 Normal [facility] CHEMISTRY Globulin 3.4 2.0 - 4.0 11/30 Normal [facility] HEMATOLOGY Basophils # 0.1 0.0 - 0.2 11/30 Normal [facility] HEMATOLOGY PT 13.9 12.0 - 11/30 Normal [facility] 14.7 [facility] HEMATOLOGY PTT 26.5 22.9 - 11/30 Normal <sup>19</sup> [facility] 35.8 /2012 Interpretive Medical Data: [facility] Center Therapeutic Range: 57 - 92 Seconds HEMATOLOGY INR 1.05 0.85 - 11/30 Normal <sup>17</sup> [facility] 09.22 Interpretive Medical Data: Center RECOMMENDED RANGES FOR PROTIME INR:
2.0-3.0 for most medical and surgical thromboemboli c states.
2.5-3.5 for artificial heart valves and recurrent embolism.<br/ >
INR SHOULD BE USED ONLY FOR PATIENTS ON STABLE ANTICOAGULANT THERAPY. CHEMISTRY POC V Temp 37.0 11/29 NA [facility] CHEMISTRY POC V Ion Ca 1.16 1.16 - 11/29 Normal [facility] . [facility] CHEMISTRY POC V K 3.5 [...] PCO2 26 35 - 45 03/26 CRIT [facility] CHEMISTRY POC A PO2 115 80 - 100 11/29 HI [facility] CHEMISTRY POC A pH 7.33 7.35 - 11/29 [facility] BACTERIAL - MRSA by PCR Positive 1, 2 11/29 ABN <sup>1</sup>R [facility] SEROLOGY *ABN* /2012 esult Medical (11/29/2012 14:30:36) [...] the Molecular Diagnostic Laboratory within the [facility]. The Molecular Diagnostic Laboratory is authorized under the Clinical Laboratory Improvement Amendment of 1988 (CLIA-88) to perform high complexity testing. CHEMISTRY Temp Art 37.0 11/29 NA [facility] CHEMISTRY O2 Sat Art 96.6 95.0 - 11/29 Normal [facility] 100.0 [facility] CHEMISTRY pO2 Art 96 80 - 100 11/29 Normal [facility] CHEMISTRY pCO2 Art 25 35 - 45 11/29 CRIT <sup>15</sup> Result Medical Comment: Center Critical Result(s) called to jose rodriguez at _11/29/2012 12:25:56 CDT byandrey_. Read back OK. CHEMISTRY BE Art -12 -2-2 - 2 11/29 LOW [facility] CHEMISTRY HCO3 Art 12 - 11/[address] [facility] CHEMISTRY pH Art 7.30 7.35 - 11/29 [facility] 7 [facility] CHEMISTRY A/G Ratio 0.8 0.7 - 1.6 11/29 Normal [facility] CHEMISTRY Globulin 4.0 2.0 - 4.0 11/29 Normal [facility] CHEMISTRY AST 17 0 - 37 11/29 Normal [facility] CHEMISTRY Bili Total 0.8 0.2 - 1.3 11/29 Normal [facility] CHEMISTRY B/C Ratio 14 6 - 25 11/29 Normal [facility] CHEMISTRY Total Protein 7.4 6.4 - 8.4 11/29 Normal [facility] CHEMISTRY ALT 22 0 - 65 11/29 Normal [facility] CHEMISTRY Albumin Lvl 3.4 3.5 - 5.0 11/29 LOW [facility] CHEMISTRY Alk Phos 126 39 - 136 11/29 Normal [facility] CHEMISTRY Troponin-I <0.02 0.00 - 11/29 Normal [facility] 0.40 [facility] CHEMISTRY Lipase Lvl 70 73 - 393 11/29 LOW [facility] CHEMISTRY B/C Ratio 10 6 - 25 11/29 Normal [facility] HEMATOLOGY Hypochrom Slight None Seen 11/29 Normal [facility] (11/28/2012 21:00:20) Medical Center HEMATOLOGY Polychrom Slight None Seen 11/29 Normal [facility] (11/28/2012 21:00:20) Medical Center HEMATOLOGY Anisocyte 1+ None Seen 11/29 [facility] *ABN* Medical (11/28/2012 21:00:20) Center HEMATOLOGY Large Plt Slight None Seen 11/29 [facility] *ABN* Medical (11/28/2012 21:00:20) Center HEMATOLOGY Eosinophils # 0.2 0.0 - 0.5 11/29 Normal [facility] CHEMISTRY U Preg Negative Negative 11/29 Normal [facility] (11/28/2012 20:55:00) Medical Center URINALYSIS UA Blood Negative Negative 11/29 Normal [facility] (11/28/2012 20:55:00) [facility] URINALYSIS UA Bili Small 6 Negative 11/29 ABN <sup>6</sup>R [facility] *ABN* esult Medical (11/28/2012 20:55:00) Comment: Center Interpret positive bilirubin results with caution. Confirmatory testing
n ot possible due to the unavailabilit y of reagent. Correlation with
seru m chemistry results recommended. URINALYSIS UA Protein Negative Negative 11/29 Normal [facility] (11/28/2012 20:55:00) [facility] URINALYSIS Micro? Not Indicated 11/29 Normal [facility] (11/28/2012 20:55:00) Medical Center URINALYSIS UA Glucose Negative Negative 11/29 Normal [facility] (11/28/2012 20:55:00) Medical Center URINALYSIS UA Ketones 40 mg/dL Negative 11/29 ABN [facility] *ABN* [facility] (11/28/2012 20:55:00) Center URINALYSIS UA Leuk Est Negative Negative 11/29 Normal [facility] (11/28/2012 20:55:00) [facility] URINALYSIS UA 0.2 0.1 - 1.0 11/29 Normal [facility] Urobilinogen [facility] URINALYSIS UA Nitrite Negative Negative 11/29 Normal [facility] (11/28/2012 20:55:00) [facility] URINALYSIS UA Spec Grav 1.010 <=1.030 11/29 Normal [facility] URINALYSIS UA pH 6.0 5.0 - 8.0 11/29 Normal [facility] URINALYSIS UA Color Yellow Yellow 11/29 NA [facility] *NA* [facility] (11/28/2012 20:55:00) Center URINALYSIS UA Turbidity Clear Clear 11/29 Normal [facility] (11/28/2012 20:55:00) Medical Center BEDSIDE Comment1 Notify 11/17 NA [facility] GLUCOSE MARTÍNEZ/ Medical TESTING Center BEDSIDE Gluc POC 219 70 - 99 11/17 HI <sup>1</sup>I [facility] Data: Center Upper Reportable Limit: 200 mg/dL. BEDSIDE Gluc POC 255 70 - 99 11/17 HI <sup>2</sup>I [facility]COSE [facility] nterpretive Medical TESTING Data: [place] Upper Reportable Limit: 200 mg/dL. BEDSIDE Comment1 Notify 11/17 [facility] GLUCOSE MARTÍNEZ/ Medical TESTING Center CHEMISTRY Troponin-T <0.010 0.000 - 11/17 Normal [facility] 0.100 /2012 [facility] CHEMISTRY Troponin-I <0.02 0.00 - 11/17 Normal [facility] 0.40 [facility] CHEMISTRY Total CK 52 12 - 191 11/17 Normal [facility] CHEMISTRY eGFR 109 11/17 NA [...] Calcium Lvl 7.7 8.5 - 10.5 11/[address] [facility] CHEMISTRY AGAP 16.2 10.0 - 11/17 [facility] 20.0 [facility] CHEMISTRY Chloride Lvl 100 95 - 109 11/17 [facility] CHEMISTRY Potassium Lvl 4.2 3.5 - 5.1 11/17 Normal [facility] CHEMISTRY Sodium Lvl 134 135 - 145 11/[address] [facility] CHEMISTRY CO2 22 24 - 32 11/17 [facility] CHEMISTRY Creatinine 0.6 0.5 - 1.4 11/[address] [facility] CHEMISTRY BUN 4 7 - 22 11/[address] [facility] CHEMISTRY Glucose Lvl 237 70 - 99 11/17 HI <sup>6</sup>I nterpretive Medical Data: [facility] Center reference range values reflect the clinical guidelines
of the [employer]. CHEMISTRY Magnesium Lvl 1.4 1.8 - 2.4 11/17 LOW [facility] CHEMISTRY Phosphorus 3.4 2.5 - 4.5 11/17 Normal [facility] HEMATOLOGY Segs 60.3 45.0 - 11/17 Normal [facility] 75.0 /2012 [facility] HEMATOLOGY Monocytes 9.0 2.0 - 12.0 11/17 Normal [facility] HEMATOLOGY Lymphocytes 27.8 20.0 - 11/17 Normal [place] 40.0 [facility] HEMATOLOGY Eosinophils 2.1 0.0 - 4.0 11/17 Normal [facility] HEMATOLOGY Lymphocytes # 2.3 1.0 - 5.5 11/17 Normal [facility] HEMATOLOGY Eosinophils # 0.2 0.0 - 0.5 11/17 Normal [facility] HEMATOLOGY Basophils 0.8 0.0 - 1.0 11/17 Normal [facility] HEMATOLOGY Segs-Bands # 5.1 1.5 - 8.1 11/17 Normal [facility] HEMATOLOGY Basophils # 0.1 0.0 - 0.2 11/17 Normal [facility] HEMATOLOGY Monocytes # 0.8 0.0 - 0.8 11/17 Normal [facility] HEMATOLOGY Microcyte 1+ None Seen 11/17 [facility] *ABN* /2012 Medical (11/17/2012 04:33:00) [place] HEMATOLOGY INR 1.09 0.85 - 11/17 Normal <sup>8</sup>I [facility] 1.17 nterpretive Medical Data: Center RECOMMENDED RANGES FOR PROTIME INR:
2.0-3.0 for most medical and surgical thromboemboli c states.
2.5-3.5 for artificial heart valves and recurrent embolism.<br/ >
INR SHOULD BE USED ONLY FOR PATIENTS ON STABLE ANTICOAGULANT THERAPY. HEMATOLOGY PT 14.3 12.0 - 11/17 Normal [facility] 14.7 [facility] HEMATOLOGY PTT 31.8 22.9 - 11/17 Normal <sup>9</sup>I [facility] 35.8 /2012 nterpretive Medical Data: [facility] Therapeutic Range: 57 - 92 Seconds HEMATOLOGY Platelet 177 133 - 450 11/17 Normal [facility] HEMATOLOGY MPV 9.5 7.4 - [...] WBC 8.4 3.7 - 10.4 11/17 Normal [facility] HEMATOLOGY Hct 27.9 36.0 - 03 LOW [place] 48.0 /2012 [facility] HEMATOLOGY Hgb 9.0 12.0 - 11/17 LOW [place] 16.0 /2012 [facility] CHEMISTRY Troponin-T <0.010 0.000 - 11/17 Normal [place] 0.100 [facility] CHEMISTRY Troponin-I <0.02 0.00 - 11/17 Normal [facility] 0.40 [facility] CHEMISTRY Total CK 76 12 - 191 11/17 Normal [facility] CHEMISTRY CK MB Index 0.8 0.0 - 2.5 11/17 Normal [facility] CHEMISTRY CK MB 0.6 0.5 - 3.6 11/17 Normal [facility] BEDSIDE Gluc POC 305 70 - 99 11/17 HI <sup>3</sup>I [facility] GLUCOSE [facility] /2012 nterpretive Medical TESTING Data: Center Upper Reportable Limit: 200 mg/dL. BEDSIDE Comment1 Notify 11/17 NA [facility] GLUCOSE RN/MD /2012 Medical TESTING Center CHEMISTRY Magnesium Lvl 1.4 1.8 - 2.4 11/16 LOW [facility] CHEMISTRY Total CK 27 12 - 191 11/16 Normal [facility] CHEMISTRY Troponin-T <0.010 0.000 - 11/16 Normal [place] 0.100 [facility] CHEMISTRY Troponin-I <0.02 0.00 - 11/16 Normal [place] 0.40 [facility] CHEMISTRY B/C Ratio 6 6 - 25 11/16 Normal Medical Center CHEMISTRY A/G Ratio 1.0 0.7 - 1.6 11/16 Normal [facility] CHEMISTRY AGAP 18.6 10.0 - 11/16 Normal [facility] 20.0 [facility] CHEMISTRY Globulin 3.5 2.0 - 4.0 11/16 Normal [facility] CHEMISTRY eGFR 67 11/16 NA [...] Lvl 3.4 3.5 - 5.0 11/16 LOW [facility] CHEMISTRY Alk Phos 88 39 - 136 11/16 Normal [facility] CHEMISTRY Glucose Lvl 256 70 - 99 11/16 HI <sup>7</sup>I nterpretive Medical Data: Adult Center reference range values reflect the clinical guidelines
of the [employer]. CHEMISTRY BUN 6 7 - 22 11/16 LOW [facility] CHEMISTRY Sodium Lvl 136 135 - 145 11/16 Normal [facility] CHEMISTRY Chloride Lvl 99 95 - 109 11/16 Normal [facility] CHEMISTRY Creatinine 1.0 0.5 - 1.4 11/[address] [facility] CHEMISTRY Potassium Lvl 3.6 3.5 - 5.1 11/16 Normal [facility] CHEMISTRY CO2 22 24 - 32 11/[address] [facility] CHEMISTRY Calcium Lvl 8.8 8.5 - 10.5 11/16 Normal [facility] CHEMISTRY Bili Total 0.6 0.2 - 1.3 11/16 Normal [facility] CHEMISTRY Total Protein 6.9 6.4 - 8.4 11/16 Normal [facility] CHEMISTRY AST 52 0 - 37 11/16 HI [facility] CHEMISTRY ALT 52 0 - 65 11/16 Normal [facility] CHEMISTRY Phosphorus 1.6 2.5 - 4.5 11/16 LOW [facility] HEMATOLOGY Lymphocytes 16.8 20.0 - 11/16 LOW [place] 40.0 [facility] HEMATOLOGY Segs 72.3 45.0 - 11/16 Normal [facility] 75.0 [facility] HEMATOLOGY Large Plt Slight None Seen 11/16 [facility] Medical (11/16/2012 13:17:00) Center HEMATOLOGY Elliptocyte Slight None Seen 11/16 [facility] Medical (11/16/2012 13:17:00) Center HEMATOLOGY Polychrom Slight None Seen 11/16 Normal [facility] (11/16/2012 13:17:00) [facility] HEMATOLOGY Microcyte 1+ None Seen 11/16 [facility] Medical (11/16/2012 13:17:00) Center HEMATOLOGY Basophils # 0.1 0.0 - 0.2 11/16 Normal [facility] HEMATOLOGY Hypochrom Slight None Seen 11/16 Normal [facility] (11/16/2012 13:17:00) Medical Center HEMATOLOGY Anisocyte 1+ None Seen 11/16 [facility] Medical (11/16/2012 13:17:00) Center HEMATOLOGY Schistocyte Occasional 11/16 NA [facility] HEMATOLOGY Monocytes 8.6 2.0 - 12.0 11/16 Normal [facility] HEMATOLOGY Eosinophils 1.5 0.0 - 4.0 11/16 Normal [facility] HEMATOLOGY Monocytes # 1.1 0.0 - 0.8 11/16 HI [facility] HEMATOLOGY Segs-Bands # 9.7 1.5 - 8.1 11/16 HI [facility] HEMATOLOGY Eosinophils # 0.2 0.0 - 0.5 11/16 Normal [facility] HEMATOLOGY Lymphocytes # 2.2 1.0 - 5.5 11/16 Normal [facility] HEMATOLOGY Basophils 0.8 0.0 - 1.0 11/16 Normal [facility] HEMATOLOGY Hgb 10.8 12.0 - 03 LOW [place] 16.0 /2012 [facility] HEMATOLOGY RBC 4.29 4.20 - 03 Normal [place] 5.40 /2012 [facility] HEMATOLOGY WBC 13.3 3.7 - 10.4 11/16 HI [facility] HEMATOLOGY RDW 18.0 11.5 - 03 HI [place] 14.5 /2012 Medical Center HEMATOLOGY Hct 32.4 36.0 - 03 LOW [place] 48.0 /2012 [facility] HEMATOLOGY MCHC 33.3 32.0 - 03 Normal [place] 36.0 /2012 [facility] HEMATOLOGY MCV 75.4 81.0 - 03 LOW [place] 99.0 /2012 [facility] HEMATOLOGY MCH 25.1 27.0 - [address] [facility] [place] 31.0 /2012 [facility] HEMATOLOGY Platelet 230 133 - 450 11/16 Normal [facility] HEMATOLOGY MPV 9.9 7.4 - 10.4 11/16 Normal [facility] BEDSIDE Comment1 Notify 11/14 NA [facility] GLUCOSE MARTÍNEZ/ /2012 [facility] TESTING Center BEDSIDE Gluc POC 266 70 - 99 11/14 HI <sup>2</sup>I [facility] GLUCOSE [facility] nterpretive Medical TESTING Data: [place] Upper Reportable Limit: 200 mg/dL. BEDSIDE Comment1 Notify 11/14 NA [facility] GLUCOSE MARTÍNEZ/ /2012 [facility] TESTING Center BEDSIDE Gluc POC 140 70 - 99 11/14 HI <sup>3</sup>I [facility] GLUCOSE [facility] nterpretive Medical TESTING Data: [place] Upper Reportable Limit: 200 mg/dL. BEDSIDE Comment1 Notify 11/14 NA [facility] GLUCOSE MARTÍNEZ/ /2012 [facility] TESTING Center BEDSIDE Gluc POC 201 70 - 99 11/14 HI <sup>4</sup>I [facility] GLUCOSE [facility] nterpretive Medical TESTING Data: [place] Upper Reportable Limit: 200 mg/dL. CHEMISTRY A/G Ratio 0.9 0.7 - 1.6 11/14 Normal [facility] CHEMISTRY AST 41 0 - 37 11/14 [facility] CHEMISTRY eGFR 104 11/14 NA [...] Albumin Lvl 2.9 3.5 - 5.0 11/14 [facility] CHEMISTRY Alk Phos 84 39 - 136 11/14 Normal [facility]2012 [facility] CHEMISTRY BUN 3 7 - 22 11/14 [facility] CHEMISTRY Creatinine 0.7 0.5 - 1.4 11/14 Normal [facility] CHEMISTRY Sodium Lvl 136 135 - 145 11/14 Normal [facility]2012 [facility] CHEMISTRY Total Protein 6.3 6.4 - 8.4 11/14 [facility] CHEMISTRY ALT 51 0 - 65 11/14 [facility] CHEMISTRY Potassium Lvl 3.7 3.5 - 5.1 11/14 Normal [facility]2012 [facility] CHEMISTRY Chloride Lvl 101 95 - 109 11/14 [facility] CHEMISTRY Glucose Lvl 210 70 - 99 11/14 HI <sup>9</sup>I nterpretive Medical Data: Adult Center reference range values reflect the clinical guidelines
of the [employer]. CHEMISTRY AGAP 15.7 10.0 - 11/14 Normal [facility] 20.0 [facility] CHEMISTRY B/C Ratio 4 6 - 25 11/14 [facility] CHEMISTRY Globulin 3.4 2.0 - 4.0 11/14 [facility] CHEMISTRY CO2 23 24 - 32 11/14 LOW [facility] CHEMISTRY Bili Total 0.4 0.2 - 1.3 11/14 Normal [facility] CHEMISTRY Calcium Lvl 8.5 8.5 - 10.5 11/14 Normal [facility] CHEMISTRY Phosphorus 3.6 2.5 - 4.5 11/14 Normal [facility] CHEMISTRY Magnesium Lvl 1.5 1.8 - 2.4 11/14 LOW [facility] CHEMISTRY Ca Norm mgdL 3.52 4.65 - 11/14 LOW [place] . [facility] CHEMISTRY Ca Ion mgdL 3.32 4.65 - 11/14 CRIT [facility] 01.23 [facility] CHEMISTRY Ca Ion 0.83 1.16 - 11/14 CRIT <sup>15</sup> [facility] 10.05 Result Medical Comment: Center Critical Result(s) called to Arlin Rose at 11/14/2012 00:23:56 CDT_ by_tvs. Read back OK. CHEMISTRY Ca Norm 0.88 1.16 - 11/14 CRIT [facility] 1 [facility] HEMATOLOGY Platelet 221 133 - 450 11/14 Normal [facility] HEMATOLOGY RDW 19.0 11.5 - 03 [facility] [place] 14.5 /2012 Medical [place] HEMATOLOGY MCHC 32.4 32.0 - 11/14 [facility] [place] 36.0 /2012 [facility] HEMATOLOGY MCV 75.5 81.0 - 11/[address] [facility] [place] 99.0 /2012 [facility] HEMATOLOGY Hct 35.5 36.0 - 11/[address] [facility] [place] 48.0 /2012 [facility] HEMATOLOGY Hgb 11.5 12.0 - [address] [facility] [place] 16.0 /2012 [facility] HEMATOLOGY MCH 24.5 27.0 - [address] [facility] [place] 31.0 /2012 [facility] HEMATOLOGY MPV 9.1 7.4 - 10.4 11/14 Normal [facility] HEMATOLOGY RBC 4.70 4.20 - 11/14 Normal [place] 5.40 /2012 [facility] HEMATOLOGY WBC 8.6 3.7 - 10.4 11/14 Normal [facility] HEMATOLOGY Segs 53.3 45.0 - 03 Normal [place] 75.0 /2012 [facility] HEMATOLOGY Microcyte 1+ None Seen 11/14 ABN [place] *ABN* /2012 Medical (11/13/2012 23:45:00) Center HEMATOLOGY Basophils # 0.1 0.0 - 0.2 11/14 Normal [facility] HEMATOLOGY Eosinophils # 0.2 0.0 - 0.5 11/14 Normal 2012 [facility] HEMATOLOGY Monocytes # 0.9 0.0 - 0.8 11/14 HI [facility] HEMATOLOGY Lymphocytes # 2.9 1.0 - 5.5 11/14 Normal [facility] HEMATOLOGY Monocytes 10.3 2.0 - 12.0 11/14 Normal [facility] HEMATOLOGY Lymphocytes 33.6 20.0 - 03 Normal [place] 40.0 [facility] HEMATOLOGY Segs-Bands # 4.6 1.5 - 8.1 11/14 Normal [facility] HEMATOLOGY Basophils 0.7 0.0 - 1.0 11/14 Normal [facility] HEMATOLOGY Eosinophils 2.1 0.0 - 4.0 11/14 Normal [facility] CHEMISTRY Lipase Lvl 43 73 - 393 11/13 LOW [facility] CHEMISTRY Amylase Lvl 14 25 - 115 11/13 LOW [facility] CHEMISTRY A/G Ratio 0.8 0.7 - 1.6 11/13 Normal [facility] CHEMISTRY AST 56 0 - 37 11/13 [facility] CHEMISTRY Alk Phos 67 39 - 136 11/13 Normal 2012 [facility] CHEMISTRY Globulin 2.9 2.0 - 4.0 11/13 Normal [facility] CHEMISTRY Total Protein 5.3 6.4 - 8.4 11/13 LOW [facility] CHEMISTRY Albumin Lvl 2.4 3.5 - 5.0 11/13 LOW 2012 [facility] CHEMISTRY ALT 41 0 - 65 11/13 Normal 2012 [facility] CHEMISTRY Bili Indirect 0.3 0.0 - 1.0 11/13 Normal [facility] CHEMISTRY Bili Direct 0.1 0.0 - 0.3 11/13 Normal [facility] CHEMISTRY Bili Total 0.4 0.2 - 1.3 11/13 Normal [facility] CHEMISTRY eGFR 137 11/13 NA <sup>7</sup>R MH [...] CHEMISTRY AGAP 17.3 10.0 - 11/13 Normal [facility] 20.0 [facility] CHEMISTRY Calcium Lvl 6.7 8.5 - 10.5 11/13 CRIT <sup>13</sup> Result Medical Comment: Center Critical Result(s) called to _hansel gustafson at _11/13/2012 06:59:47 CDT bylg. Read back OK. CHEMISTRY CO2 17 24 - 32 11/13 LOW [facility] CHEMISTRY Chloride Lvl 111 95 - 109 11/13 HI [facility] CHEMISTRY Potassium Lvl 3.3 3.5 - 5.1 11/13 LOW <sup>5</sup>R esult Medical Comment: Center Specimen Slightly Hemolyzed. CHEMISTRY Sodium Lvl 142 135 - 145 11/13 Normal [facility] CHEMISTRY Creatinine 0.3 0.5 - 1.4 11/13 LOW [facility] /2012 [facility] CHEMISTRY BUN 3 7 - 22 11/13 LOW [facility] CHEMISTRY Glucose Lvl 104 70 - 99 11/13 HI <sup>10</sup> Interpretive Medical Data: Adult Center reference range values reflect the clinical guidelines
of the [employer]. CHEMISTRY Magnesium Lvl 1.3 1.8 - 2.4 03/10 LOW [facility] CHEMISTRY Phosphorus 2.8 2.5 - 4.5 03 Normal [facility] CHEMISTRY Ca Ion 1.01 1.16 - 11/[address] [facility] [place] 1.30 [facility] CHEMISTRY Ca Norm 1.07 1.16 - 11/[address] [facility] [place] 1.30 [facility] CHEMISTRY Ca Norm mgdL 4.28 4.65 - 11/[address] [facility] [place] 5. [facility] CHEMISTRY Ca Ion mgdL 4.04 4.65 - 11/[address] [facility] [facility] [address] [facility] [place] 5.20 [facility] HEMATOLOGY MCV 78.6 81.0 - [address] [facility] [place] 99.0 /2012 [facility] HEMATOLOGY MPV 9.1 7.4 - 10.4 11/13 Normal [facility] HEMATOLOGY MCHC 31.1 32.0 - [address] [facility] [place] 36.0 /2012 [facility] HEMATOLOGY MCH 24.4 27.0 - [address] [facility] [place] 31.0 [facility] HEMATOLOGY Hct 29.4 36.0 - 11/[address] [facility] [place] 48.0 /2012 [facility] HEMATOLOGY RDW 19.1 11.5 - 03 HI [place] 14.5 /2012 [facility] HEMATOLOGY Platelet 192 133 - 450 11/13 Normal [facility] HEMATOLOGY Hgb 9.1 12.0 - [address] [facility] [place] 16.0 /2012 [facility] HEMATOLOGY RBC 3.74 4.20 - 11/[address] [facility] [place] 5.40 /2012 [facility] HEMATOLOGY WBC 6.8 3.7 - 10.4 11/13 Normal [facility] HEMATOLOGY Plt Morph Normal 11/13 Normal [facility] (11/13/2012 05:00:00) [facility] HEMATOLOGY Atypical 0.0 <=0.0 11/13 Normal [facility] Lymphs /2012 [facility] HEMATOLOGY RBC Morph Normal 11/13 Normal [facility] (11/13/2012 05:00:00) [facility] HEMATOLOGY Eosinophils 2.0 0.0 - 4.0 11/13 Normal [facility] HEMATOLOGY Bands 0.0 0.0 - 11.0 11/13 Normal [facility] HEMATOLOGY Segs 51.0 45.0 - 11/13 [facility] [place] 75.0 [facility] HEMATOLOGY Eosinophils # 0.1 0.0 - 0.5 03/10 Normal [facility] HEMATOLOGY Segs-Bands # 3.5 1.5 - 8.1 11/13 Normal [facility] HEMATOLOGY Monocytes 5.0 2.0 - 12.0 11/13 Normal [facility] HEMATOLOGY Lymphocytes 42.0 20.0 - 11/13 HI [facility] 40.0 [facility] HEMATOLOGY Monocytes # 0.3 0.0 - 0.8 11/13 Normal 2012 [facility] HEMATOLOGY Lymphocytes # 2.9 1.0 - 5.5 11/13 Normal [facility] INFECTIOUS C difficile Negative 1 Negative 11/13 Normal <sup>1</sup>I [facility] DISEASES DNA (11/12/2012 21:54:26) nterpretive Medical Data: [place] [employer] Clostridium difficile assay utilizes loop-mediated isothermal DNA amplification (LAMP) technology to detect a 204 bp region of the tcdA gene within the PaLoc gene segment present in all known toxigenic C. difficile strains.

The assay utilizes FDA cleared IVD reagents. Performance characteristi cs have been verified by the Molecular Diagnostic Laboratory within the [facility]. The Molecular Diagnostic Laboratory is authorized under the Clinical Laboratory Improvement Amendment of 1988 (CLIA-88) to perform high complexity testing. CHEMISTRY Total CK 25 12 - 191 11/12 Normal [facility] CHEMISTRY Troponin-I <0.02 0.00 - 11/12 Normal [facility] 0.40 [facility] CHEMISTRY eGFR 88 11/12 NA [...] 13.7 10.0 - 03 Normal [place] 20.0 [facility] CHEMISTRY Calcium Lvl 8.5 8.5 - 10.5 11/12 Normal [facility] CHEMISTRY CO2 25 24 - 32 11/12 Normal [facility] CHEMISTRY Potassium Lvl 3.7 3.5 - 5.1 11/12 Normal [facility] CHEMISTRY Sodium Lvl 138 135 - 145 11/12 Normal [facility] CHEMISTRY Chloride Lvl 103 95 - 109 11/12 Normal [facility] CHEMISTRY Creatinine 0.8 0.5 - 1.4 11/12 Normal [facility] Lvl [facility] CHEMISTRY BUN 5 7 - 22 11/12 LOW [facility] CHEMISTRY Glucose Lvl 40 70 - 99 11/12 CRIT <sup>11</sup> Result Medical Comment: Center rechecked Critical Result(s) called to _Leo Rose at 11/12/2012 02:56:37 [employer] by_mgm. Read back OK.
<sup> 12</sup>Inter pretive Data: Adult reference range values reflect the clinical guidelines
of the [employer]. CHEMISTRY Ca Norm mgdL 4.20 4.65 - [address] [facility] [place] 5. [facility] CHEMISTRY Ca Norm 1.05 1.16 - 11/[address] [facility] [place] 1.30 [facility] CHEMISTRY Ca Ion mgdL 4.00 4.65 - 09 LOW [place] 5. [facility] CHEMISTRY Ca Ion 1.00 1.16 - [address] [facility] [place] 1.30 [facility] CHEMISTRY Magnesium Lvl 1.9 1.8 - 2.4 11/12 Normal [facility] CHEMISTRY Phosphorus 3.2 2.5 - 4.5 11/12 Normal [facility] HEMATOLOGY MCHC 32.0 32.0 - 03 Normal [place] 36.0 /2013 [facility] HEMATOLOGY MCH 24.1 27.0 - [address] [facility] [place] 31.0 [facility] HEMATOLOGY MCV 75.3 81.0 - 03 LOW [facility] [place] 99.0 /2012 [facility] HEMATOLOGY WBC 9.2 3.7 - 10.4 03 Normal [facility] HEMATOLOGY Platelet 233 133 - 450 03 Normal [facility] HEMATOLOGY MPV 9.1 7.4 - 10.4 11/12 Normal [facility] HEMATOLOGY RDW 19.0 11.5 - 03/ HI [place] 14.5 /2012 [facility] HEMATOLOGY RBC 4.19 4.20 - 03 LOW [place] 5.40 /2012 [facility] HEMATOLOGY Hgb 10.1 12.0 - 03 LOW [place] 16.0 /2012 [facility] HEMATOLOGY Hct 31.6 36.0 - 03 LOW [place] 48.0 /2012 [facility] HEMATOLOGY Hypochrom Slight None Seen 11/12 Normal [facility] (11/12/2012 00:19:00) /2012 [facility] HEMATOLOGY Large Plt Slight None Seen 11/12 [facility] *ABN* /2012 Medical (11/12/2012 00:19:00) [place] HEMATOLOGY Atypical 0.0 <=0.0 11/12 Normal [facility] Lymphs [facility] HEMATOLOGY Basophils 1.0 0.0 - 1.0 11/12 Normal [facility] HEMATOLOGY Lymphocytes 39.0 20.0 - 03 [facility] 40.0 [facility] HEMATOLOGY Bands 0.0 0.0 - 11.0 11/12 Normal [facility] HEMATOLOGY Eosinophils 2.0 0.0 - 4.0 11/12 Normal [facility] HEMATOLOGY Monocytes 6.0 2.0 - 12.0 11/12 Normal [facility] HEMATOLOGY Segs 52.0 45.0 - 11/12 [facility] [place] 75.0 [facility] HEMATOLOGY Basophils # 0.1 0.0 - 0.2 11/12 Normal [facility] HEMATOLOGY Monocytes # 0.6 0.0 - 0.8 11/12 Normal [facility] HEMATOLOGY Lymphocytes # 3.6 1.0 - 5.5 11/12 Normal [facility] HEMATOLOGY Segs-Bands # 4.8 1.5 - 8.1 11/12 Normal [facility] HEMATOLOGY Eosinophils # 0.2 0.0 - 0.5 11/12 Normal [facility] HEMATOLOGY Microcyte 1+ None Seen 11/11 [facility] Medical (11/11/2012 03:41:00) Center HEMATOLOGY Basophils # 0.1 0.0 - 0.2 11/11 Normal [facility] HEMATOLOGY Basophils 0.7 0.0 - 1.0 11/11 Normal [facility] HEMATOLOGY Microcyte 1+ None Seen 11/09 [facility] Medical (11/09/2012 05:12:00) Center URINALYSIS UA pH 5.0 5.0 - 8.0 11/08 Normal [facility] URINALYSIS UA Protein 20 mg/dL Negative 11/08 [facility] Medical (11/07/2012 20:54:00) Center URINALYSIS UA Turbidity Slight Clear 11/08 [facility] Medical (11/07/2012 20:54:00) Center URINALYSIS UA Spec Grav 1.010 <=1.030 11/08 Normal [facility] URINALYSIS UA Color Yellow Yellow 11/08 [facility] (11/07/2012 20:54:00) Center URINALYSIS UA Bacteria Moderate /HPF None Seen 11/08 [facility] Medical (11/07/2012 20:54:00) Center URINALYSIS UA Mucus Few /LPF None [facility]2012 20:54:00[facility] Center URINALYSIS UA WBC >182 0 - 5 11/08 [facility] URINALYSIS UA RBC 4 0 - 2 11/08 [facility] URINALYSIS UA Sq Epi Moderate /LPF Few 11/08 [facility] Medical (11/07/2012 20:54:00) Center URINALYSIS UA Leuk Est Large Negative 11/08 [facility] Medical (11/07/2012 20:54:00) Center URINALYSIS UA Blood Trace Negative 11/08 [facility]* Medical (11/07/2012 20:54:00) Center URINALYSIS UA Nitrite Negative Negative 11/08 Normal [facility] (11/07/2012 20:54:00) [facility] URINALYSIS UA Ketones 40 mg/dL Negative 11/08 [facility]* Medical (11/07/2012 20:54:00) Center URINALYSIS UA Bili Negative Negative 11/08 [facility] (11/07/2012 20:54:00) Center URINALYSIS Micro? Performed 11/08 [facility] (11/07/2012 20:54:00) Center URINALYSIS UA 0.1 - 1.0 11/08 [facility] Urobilinogen /2012 [facility] URINALYSIS UA Glucose >=1000mg/d 11/08 [facility] L [facility] URINALYSIS UA Hyal Cast 37 0 - 2 11/08 [facility] URINALYSIS UA Ketones 40 mg/dL Negative 11/07 [facility] Medical (11/07/2012 06:24:57) Center CHEMISTRY Hgb [...] to lower CHEMISTRY Ketone 2.20 <=0.27 11/06 [facility] CHEMISTRY U Osmolality 207 300 - 800 11/06 LOW [facility] CHEMISTRY POC A %FIO2 21.0 18.0 - 11/06 Normal [facility] 100.0 [facility] CHEMISTRY POC A LA 0.9 0.5 - 2.2 11/06 Normal [facility] CHEMISTRY POC A Glu 281 70 - 99 11/06 [facility] CHEMISTRY POC A Temp 37.0 11/06 NA [facility] CHEMISTRY POC A Source ART 11/06 NA [facility] CHEMISTRY POC A pH 7.45 7.35 - 11/06 Normal [facility] 7.45 /2012 Medical [place] CHEMISTRY POC A HCO3 24 22 - 26 03 Normal [facility] CHEMISTRY POC A PCO2 35 35 - 45 03/ Normal [facility] CHEMISTRY POC A PO2 85 80 - 100 03 Normal [facility] CHEMISTRY POC A BE 0 -2-2 - 2 11/06 Normal [facility] CHEMISTRY POC A O2 Sat 97.0 95.0 - 11/06 Normal [place] 100.0 Medical Center CHEMISTRY POC A Na 123 135 - 145 11/06 LOW [facility] CHEMISTRY POC A Hct 31.0 36.0 - 11/06 LOW [place] 48.0 /2012 [facility] CHEMISTRY POC A Ca Ion 1.11 1.16 - 03 LOW [facility] 1.30 [facility] CHEMISTRY POC A K 3.7 3.5 - 5.1 11/06 Normal [facility] CHEMISTRY POC A BE -4 -2-2 - 2 11/06 LOW [facility] CHEMISTRY POC A HCO3 20 22 - 26 11/06 LOW [facility] CHEMISTRY POC A Source ART 11/06 NA [facility] CHEMISTRY POC A Temp 37.0 11/06 NA [facility] CHEMISTRY POC A pH 7.42 7.35 - 11/06 Normal [facility] 7.45 [facility] CHEMISTRY POC A PO2 81 80 - 100 11/06 Normal [facility] CHEMISTRY POC A O2 Sat 96.0 95.0 - 11/06 Normal 100.0 [facility] CHEMISTRY POC A PCO2 31 35 - 45 11/06 LOW [facility] CHEMISTRY POC A %FIO2 21.0 18.0 - 03 Normal [facility] 100.0 /2012 [facility] Microbiolog Culture: 11/06 [facility] y Urine /2012 [facility] CHEMISTRY Troponin-I <0.02 0.00 - 03 Normal [facility] 0.40 /2012 [facility] CHEMISTRY Troponin-T <0.010 0.000 - 03 Normal [facility] 0.100 [facility] CHEMISTRY Total CK 48 12 - 191 11/06 Normal [facility] URINALYSIS UA 0.1 - 1.0 11/06 NA [facility] Urobilinogen /2012 [facility] URINALYSIS UA Leuk Est Large Negative 11/06 ABN [facility] * Medical (11/06/2012 03:15:40) Center URINALYSIS UA Sq Epi Moderate /LPF Few 11/06 [facility] Medical (11/06/2012 03:15:40) Center URINALYSIS UA Mucus Few /LPF None Seen 11/06 NA [facility] Medical (11/06/2012 03:15:40) Center URINALYSIS UA Nitrite Negative Negative 11/06 Normal [facility] (11/06/2012 03:15:40) Medical Center URINALYSIS UA Bacteria Occasional /HPF None Seen 11/06 [facility] (11/06/2012 03:15:40) Center URINALYSIS UA WBC 67 0 - 5 11/06 [facility] URINALYSIS UA Blood Negative Negative 11/06 Normal [facility] (11/06/2012 03:15:40) Medical Center URINALYSIS UA Bili Negative Negative 11/06 [facility] Medical (11/06/2012 03:15:40) Center URINALYSIS UA Ketones 60 mg/dL Negative 11/06 [facility] Medical (11/06/2012 03:15:40) Center URINALYSIS UA pH 5.0 5.0 - 8.0 11/06 Normal Medical Center URINALYSIS UA Glucose >=1000 mg/dL Negative 11/06 [facility] Medical (11/06/2012 03:15:40) Center URINALYSIS UA Spec Grav 1.014 <=1.030 11/06 Normal [facility] URINALYSIS UA Protein Negative mg/dL Negative 11/06 Normal [facility] (11/06/2012 03:15:40) Medical Center URINALYSIS UA Turbidity Slight Clear 11/06 [facility] Medical (11/06/2012 03:15:40) Center URINALYSIS UA Color Yellow Yellow 11/06 NA [facility] Medical (11/06/2012 03:15:40) Center CHEMISTRY Troponin-I 0.02 0.00 - 11/06 Normal [facility] 0.40 Medical Center CHEMISTRY Total CK 30 12 - 191 11/06 Normal Medical Center CHEMISTRY Troponin-T <0.010 0.000 - 11/06 Normal [facility] 0.100 /2012 Medical [place] CHEMISTRY Ketone 3.00 <=0.27 11/06 HI [facility] Medical [place] CHEMISTRY Lipase Lvl 89 73 - 393 11/06 Normal [facility] CHEMISTRY Globulin 4.3 2.0 - 4.0 11/06 [facility] CHEMISTRY A/G Ratio 0.9 0.7 - 1.6 11/06 Normal [facility] CHEMISTRY B/C Ratio 7 6 - 25 11/06 Normal [facility] CHEMISTRY Albumin Lvl 3.7 3.5 - 5.0 11/06 Normal [facility] CHEMISTRY Total Protein 8.0 6.4 - 8.4 11/06 Normal [facility] CHEMISTRY ALT 62 0 - 65 11/06 Normal [facility] CHEMISTRY Alk Phos 119 39 - 136 11/06 Normal [facility] CHEMISTRY Bili Total 0.5 0.2 - 1.3 11/06 Normal [facility] CHEMISTRY AST 44 0 - 37 11/06 [facility] HEMATOLOGY Polychrom Slight None Seen 11/06 Normal [facility] (11/05/2012 20:40:00) Medical Center HEMATOLOGY Hypochrom Slight None Seen 11/06 Normal [facility] (11/05/2012 20:40:00) [facility] HEMATOLOGY Bands 1.0 0.0 - 11.0 11/06 Normal [facility] HEMATOLOGY Anisocyte 1+ None Seen 11/06 [facility] *ABN* Medical (11/05/2012 20:40:00) Center HEMATOLOGY Atypical 0.0 <=0.0 11/06 Normal [facility] Lymphs [facility] HEMATOLOGY Macrocyte 1+ None Seen 11/06 [facility] *ABN* Medical (11/05/2012 20:40:00) Center HEMATOLOGY Plt Morph Normal 11/06 Normal [facility] (11/05/2012 20:40:00) [facility] HEMATOLOGY INR 0.98 0.85 - 11/06 Normal <sup>16</sup> [facility] 1. Interpretive Medical Data: Center RECOMMENDED RANGES FOR PROTIME INR:
2.0-3.0 for most medical and surgical thromboemboli c states.
2.5-3.5 for artificial heart valves and recurrent embolism.<br/ >
INR SHOULD BE USED ONLY FOR PATIENTS ON STABLE ANTICOAGULANT THERAPY. HEMATOLOGY PT 13.2 12.0 - 03 Normal [facility] 14.7 /2012 Medical Center HEMATOLOGY PTT 26.4 22.9 - 03 Normal <sup>17</sup> [facility] 35.8 /2012 Interpretive Medical Data: [facility] Center Therapeutic Range: 57 - 92 Seconds BEDSIDE Gluc POC >400 70 - 99 11/01 CRIT <sup>3</sup>I [facility] nterpretive Medical TESTING Data: Center Upper Reportable Limit: 200 mg/dL. BEDSIDE Comment1 Notify 11/01 NA [facility] GLUCOSE MARTÍNEZ/ Medical TESTING Center BEDSIDE Gluc POC 237 70 - 99 10/31 HI <sup>4</sup>I [facility] nterpretive Medical TESTING Data: Center Upper Reportable Limit: 200 mg/dL. BEDSIDE Gluc POC 357 70 - 99 10/31 HI <sup>5</sup>I [facility] nterpretive Medical TESTING Data: Center Upper Reportable Limit: 200 mg/dL. BEDSIDE Comment1 Notify 10/31 NA Fei ROACH RN/ /2012 Medical TESTING Center CHEMISTRY Phosphorus 4.2 2.5 - 4.5 10/31 Normal [facility] CHEMISTRY Ca Norm mgdL 4.64 4.65 - 10/31 [facility] 5. [facility] CHEMISTRY Ca Ion mgdL 4.44 4.65 - 10/31 [facility] 5. [facility] CHEMISTRY Ca Norm 1.16 1.16 - 10/31 Normal [facility] 1.30 [facility] CHEMISTRY Ca Ion 1.11 1.16 - 10/31 LOW [facility] 1.30 [facility] CHEMISTRY AGAP 16.9 10.0 - 10/31 Normal [facility] 20.0 [facility] CHEMISTRY eGFR 67 10/31 NA [...] Creatinine 1.0 0.5 - 1.4 10/[address] [facility] CHEMISTRY Sodium Lvl 133 135 - 145 10/31 [facility] CHEMISTRY Calcium Lvl 8.3 8.5 - 10.5 10/31 [facility] CHEMISTRY Potassium Lvl 3.9 3.5 - 5.1 10/31 [facility] CHEMISTRY Chloride Lvl 94 95 - 109 10/[address] [facility] CHEMISTRY CO2 26 24 - 32 10/31 [facility] CHEMISTRY BUN 8 7 - 22 10/31 [facility] CHEMISTRY Glucose Lvl 75 70 - 99 10/31 Normal <sup>10</sup> Interpretive Medical Data: Adult Center reference range values reflect the clinical guidelines
of the [employer]. CHEMISTRY Magnesium Lvl 1.9 1.8 - 2.4 10/31 [facility] HEMATOLOGY MPV 9.4 7.4 - 10.4 10/31 [facility] HEMATOLOGY Hgb 9.7 12.0 - 10/31 [facility] 16.0 [facility] HEMATOLOGY RBC 4.06 4.20 - 10/31 [facility] 5.40 [facility] HEMATOLOGY MCV 74.3 81.0 - 10/31 [facility] 99.0 [facility] HEMATOLOGY Hct 30.2 36.0 - 10/[address] [facility] [place] 48.0 [facility] HEMATOLOGY MCHC 32.2 32.0 - 10/31 [facility] [place] 36.0 Medical Center HEMATOLOGY MCH 23.9 27.0 - 10/31 LOW [place] 31.0 /2012 [facility] HEMATOLOGY Platelet 199 133 - 450 10/31 Normal [facility] HEMATOLOGY RDW 17.5 11.5 - 10/31 HI [facility] 14.5 [facility] HEMATOLOGY WBC 9.4 3.7 - 10.4 10/31 Normal [facility] HEMATOLOGY Lymphocytes # 2.7 1.0 - 5.5 10/31 Normal [facility] HEMATOLOGY Basophils 0.6 0.0 - 1.0 10/31 Normal [facility] HEMATOLOGY Segs-Bands # 5.2 1.5 - 8.1 10/31 Normal [facility] HEMATOLOGY Microcyte 1+ None Seen 10/31 [facility] *ABN* /2012 [facility] (10/31/2012 04:00:00) [place] HEMATOLOGY Monocytes # 1.1 0.0 - 0.8 10/31 [facility] HEMATOLOGY Eosinophils # 0.3 0.0 - 0.5 10/31 Normal [facility] HEMATOLOGY Basophils # 0.1 0.0 - 0.2 10/31 Normal [facility] HEMATOLOGY Segs 55.2 45.0 - 10/31 Normal [place] 75.0 [facility] HEMATOLOGY Monocytes 11.8 2.0 - 12.0 10/31 Normal [facility] HEMATOLOGY Lymphocytes 28.9 20.0 - 10/31 Normal [place] 40.0 [facility] HEMATOLOGY Eosinophils 3.5 0.0 - 4.0 10/31 Normal [facility] BEDSIDE Comment1 Notify 10/31 NA [facility] GLUCOSE RN/MD Medical TESTING Center CHEMISTRY Ca Norm mgdL 4.92 4.65 - 10/30 Normal [facility] 5. [facility] CHEMISTRY Ca Ion mgdL 4.76 4.65 - 10/30 Normal [facility] 5. [facility] CHEMISTRY Ca Norm 1.23 1.16 - 10/30 Normal [facility] 10.05 [facility] CHEMISTRY Ca Ion 1.19 1.16 - 10/30 Normal [facility] 10.05 [facility] CHEMISTRY Phosphorus 3.8 2.5 - 4.5 10/30 Normal [facility] CHEMISTRY Magnesium Lvl 1.9 1.8 - 2.4 10/30 Normal [facility] CHEMISTRY eGFR 88 10/30 NA [...] 99 10/30 Normal <sup>11</sup> Interpretive Medical Data: [facility] Center reference range values reflect the clinical guidelines
of the [employer]. CHEMISTRY Creatinine 0.8 0.5 - 1.4 10/[address] [facility] CHEMISTRY BUN 6 7 - 22 10/30 [facility] CHEMISTRY Sodium Lvl 132 135 - 145 10/30 [facility] CHEMISTRY Calcium Lvl 8.5 8.5 - 10.5 10/30 Normal [facility] CHEMISTRY CO2 29 24 - 32 10/30 Normal [facility] CHEMISTRY Chloride Lvl 92 95 - 109 10/30 [facility] CHEMISTRY Potassium Lvl 3.8 3.5 - 5.1 10/30 Normal [facility] CHEMISTRY AGAP 14.8 10.0 - 10/30 [facility] 20. [facility] HEMATOLOGY Platelet 245 133 - 450 10/30 [facility] HEMATOLOGY MPV 9.4 7.4 - 10.4 10/30 [facility] HEMATOLOGY Hct 33.1 36.0 - 10/30 [facility] 48.0 [facility] HEMATOLOGY RBC 4.47 4.20 - 10/30 [facility] [place] 5.40 /2012 [facility] HEMATOLOGY WBC 11.0 3.7 - 10.4 10/30 [facility] HEMATOLOGY Hgb 10.6 12.0 - 10/[address] [facility] [place] 16.0 /2012 [facility] HEMATOLOGY MCHC 31.9 32.0 - [address] [facility] [place] 36.0 /2012 [facility] HEMATOLOGY MCV 74.1 81.0 - 10/[address] [facility] [place] 99.0 /2012 [facility] HEMATOLOGY MCH 23.7 27.0 - [address] [facility] [place] 31.0 /2012 [facility] HEMATOLOGY RDW 16.9 11.5 - 10/30 [facility] 14.5 /2012 [facility] HEMATOLOGY PTT 28.1 22.9 - 10/30 Normal <sup>25</sup> [facility] 35.8 /2012 Interpretive Medical Data: [facility] Therapeutic Range: 57 - 92 Seconds HEMATOLOGY PT 13.7 12.0 - 10/30 Normal [facility] 14.7 /2012 [facility] HEMATOLOGY INR 1.03 0.85 - 10/30 Normal <sup>22</sup> [facility] 1.17 Interpretive Medical Data: Center RECOMMENDED RANGES FOR PROTIME INR:
2.0-3.0 for most medical and surgical thromboemboli c states.
2.5-3.5 for artificial heart valves and recurrent embolism.<br/ >
INR SHOULD BE USED ONLY FOR PATIENTS ON STABLE ANTICOAGULANT THERAPY. HEMATOLOGY Segs-Bands # 7.5 1.5 - 8.1 10/30 [facility] HEMATOLOGY Basophils 0.4 0.0 - 1.0 10/30 [facility] HEMATOLOGY Monocytes # 1.1 0.0 - 0.8 10/30 [facility] HEMATOLOGY Lymphocytes # 2.1 1.0 - 5.5 10/30 [facility] HEMATOLOGY Microcyte 1+ None Seen 10/30 [facility] [place] *ABN* /2012 Medical (10/30/2012 00:20:00) [place] HEMATOLOGY Eosinophils # 0.2 0.0 - 0.5 10/30 [facility] HEMATOLOGY Segs 68.3 45.0 - 10/30 [facility] [place] 75.0 [facility] HEMATOLOGY Lymphocytes 18.9 20.0 - 10/30 LOW [facility] [place] 40.0 /2013 [facility] HEMATOLOGY Monocytes 10.3 2.0 - 12.0 10/30 Normal [facility] HEMATOLOGY Eosinophils 2.1 0.0 - 4.0 10/30 Normal [facility] CHEMISTRY Magnesium Lvl 2.1 1.8 - 2.4 10/29 Normal [facility] CHEMISTRY Phosphorus 4.1 2.5 - 4.5 10/29 Normal [facility] CHEMISTRY Ca Ion mgdL 3.96 4.65 - 10/29 [facility] 5. [facility] CHEMISTRY Ca Norm 1.01 1.16 - 10/29 [facility] 1. [facility] CHEMISTRY Ca Ion 0.99 1.16 - 10/29 [facility] 1. [facility] CHEMISTRY Ca Norm mgdL 4.04 4.65 - 10/29 [facility] 01.23 [facility] CHEMISTRY eGFR 104 10/29 NA [...] Creatinine 0.7 0.5 - 1.4 10/29 Normal [facility] CHEMISTRY BUN 3 7 - 22 10/29 LOW [facility] CHEMISTRY Calcium Lvl 8.9 8.5 - 10.5 10/29 Normal [facility] CHEMISTRY Glucose Lvl 90 70 - 99 10/29 Normal <sup>12</sup> Interpretive Medical Data: Adult Center reference range values reflect the clinical guidelines
of the [employer]. CHEMISTRY Chloride Lvl 99 95 - 109 10/29 Normal [facility] CHEMISTRY Potassium Lvl 4.4 3.5 - 5.1 10/29 [facility] CHEMISTRY CO2 27 24 - 32 10/29 Normal [facility] CHEMISTRY Sodium Lvl 139 135 - 145 10/29 Normal [facility] CHEMISTRY AGAP 17.4 10.0 - 10/29 Normal [place] 20.0 /2012 [facility] HEMATOLOGY PTT 23.7 22.9 - 10/29 Normal <sup>26</sup> [place] 35.8 /2012 Interpretive Medical Data: [facility] Therapeutic Range: 57 - 92 Seconds HEMATOLOGY PT 13.4 12.0 - 10/29 Normal [place] 14.7 /2012 [facility] HEMATOLOGY INR 1.00 0.85 - 10/29 Normal <sup>23</sup> [facility] 1.17 /2012 Interpretive Medical Data: Center RECOMMENDED RANGES FOR PROTIME INR:
2.0-3.0 for most medical and surgical thromboemboli c states.
2.5-3.5 for artificial heart valves and recurrent embolism.<br/ >
INR SHOULD BE USED ONLY FOR PATIENTS ON STABLE ANTICOAGULANT THERAPY. HEMATOLOGY RDW 17.1 11.5 - 10/29 [facility] [place] 14.5 /2012 [facility] HEMATOLOGY MCH 23.8 27.0 - 10/29 LOW [place] 31.0 /2012 [facility] HEMATOLOGY MCHC 32.2 32.0 - 10/29 Normal [place] 36.0 /2012 [facility] HEMATOLOGY Hct 33.6 36.0 - 10/[address] [facility] [place] 48.0 /2012 [facility] HEMATOLOGY MCV 74.0 81.0 - 10/[address] [facility] [place] 99.0 /2012 [facility] HEMATOLOGY Platelet 233 133 - 450 10/29 Normal [facility] HEMATOLOGY MPV 9.9 7.4 - 10.4 10/29 Normal [facility] HEMATOLOGY RBC 4.54 4.20 - 10/29 Normal [place] 5.40 /2012 [facility] HEMATOLOGY Hgb 10.8 12.0 - 10/[address] [facility] [place] 16.0 /2012 [facility] HEMATOLOGY WBC 9.7 3.7 - 10.4 02/23 Normal [facility] HEMATOLOGY Lymphocytes # 2.6 1.0 - 5.5 10/29 Normal [facility] HEMATOLOGY Basophils 0.7 0.0 - 1.0 10/29 Normal [facility] HEMATOLOGY Segs-Bands # 6.0 1.5 - 8.1 10/29 Normal [facility] HEMATOLOGY Monocytes # 0.7 0.0 - 0.8 10/29 Normal [facility] HEMATOLOGY Eosinophils # 0.3 0.0 - 0.5 10/29 Normal [facility] HEMATOLOGY Basophils # 0.1 0.0 - 0.2 10/29 Normal [facility] HEMATOLOGY Microcyte 1+ None Seen 10/29 [facility] *ABN* /2012 Medical (10/29/2012 00:56:00) [place] HEMATOLOGY Segs 61.5 45.0 - 10/29 Normal [facility] 75.0 [facility] HEMATOLOGY Lymphocytes 26.8 20.0 - 10/29 Normal [facility] 40.0 [facility] HEMATOLOGY Monocytes 7.6 2.0 - 12.0 10/29 Normal [facility] HEMATOLOGY Eosinophils 3.4 0.0 - 4.0 10/29 Normal [facility] CHEMISTRY Amylase Lvl 27 25 - 115 10/28 Normal [facility] CHEMISTRY Lipase Lvl 58 73 - 393 10/28 LOW [facility] CHEMISTRY Bili Indirect 0.2 0.0 - 1.0 10/28 Normal [facility] CHEMISTRY Globulin 3.4 2.0 - 4.0 10/28 Normal [facility] CHEMISTRY A/G Ratio 0.8 0.7 - 1.6 10/28 Normal [facility] CHEMISTRY AST 24 0 - 37 10/28 Normal [facility] CHEMISTRY Bili Total 0.3 0.2 - 1.3 10/28 Normal [facility] CHEMISTRY Total Protein 6.2 6.4 - 8.4 10/28 LOW [facility] CHEMISTRY ALT 23 0 - 65 10/28 Normal [facility] CHEMISTRY Albumin Lvl 2.8 3.5 - 5.0 10/28 LOW [facility] CHEMISTRY Alk Phos 85 39 - 136 10/28 Normal [facility] CHEMISTRY Bili Direct 0.1 0.0 - 0.3 10/28 Normal [facility] HEMATOLOGY PTT 23.9 22.9 - 10/28 Normal <sup>27</sup> [facility] 35.8 /2012 Interpretive Medical Data: Heparin Center Therapeutic Range: 57 - 92 Seconds HEMATOLOGY PT 13.5 12.0 - 10/28 Normal [facility] 14.7 /2012 [facility] HEMATOLOGY INR 1.01 0.85 - 10/28 Normal <sup>24</sup> [facility] 1.17 /2012 Interpretive Medical Data: Center RECOMMENDED RANGES FOR PROTIME INR:
2.0-3.0 for most medical and surgical thromboemboli c states.
2.5-3.5 for artificial heart valves and recurrent embolism.<br/ >
INR SHOULD BE USED ONLY FOR PATIENTS ON STABLE ANTICOAGULANT THERAPY. VIRAL - Influ B Negative 6 Negative 10/28 Normal <sup>6</sup>I [facility] SEROLOGY (10/27/2012 18:02:02) nterpretive Medical Data: Due [...] - Influ A Negative Negative 10/28 Normal [facility] SEROLOGY (10/27/2012 18:02:02) [facility] CHEMISTRY Vitamin D, 16 30 - 100 10/25 LOW <sup>13</sup> [facility] 25-OH, Interpretive Medical Data: Center Reference range is based on recommendatio ns in the Endocrine<br/ >Society Clinical Practice Guideline (J Clin Endocrinol Metab
201 1;[id number]) CHEMISTRY Hgb A1C 8.4 10/25 NA <sup>21</sup> [facility] Interpretive Medical Data: HbA1C% Center eAG(mg/dL) Interpretatio [...] LDL 87 0 - 129 10/25 Normal [facility] CHEMISTRY HDL 35 >=35 10/25 Normal [facility] CHEMISTRY Trig 101 0 - 200 10/25 Normal [facility] CHEMISTRY Chol 142 120 - 200 10/25 Normal [facility] CHEMISTRY CHD Risk 4.06 3.90 - 10/25 Normal [facility] 5.80 /2012 [facility] CHEMISTRY Troponin-I 5.43 0.00 - 10/25 CRIT <sup>18</sup> [facility] 0.40 Result Medical Comment: Center Critical Result(s) called to Jelani Rasmussen at 10/25/2012 00:47:48 [employer] by . Read back OK. CHEMISTRY Troponin-T 0.693 0.000 - 10/25 CRIT <sup>15</sup> [facility] 0.100 Result Medical Comment: Center Critical Result(s) called to daisy otoole at 10/25/2012 01:18:09 [employer] by tac. Read back OK. HEMATOLOGY Basophils # 0.2 0.0 - 0.2 10/25 Normal [facility] HEMATOLOGY Plt Morph Normal 10/25 Normal [facility] (10/25/2012 00:15:00) [facility] CHEMISTRY ALT 15 0 - 65 10/24 Normal [facility] CHEMISTRY Albumin Lvl 2.7 3.5 - 5.0 10/24 LOW [facility] CHEMISTRY Bili Total 0.5 0.2 - 1.3 10/24 Normal [facility] CHEMISTRY Alk Phos 83 39 - 136 10/24 Normal [facility] CHEMISTRY Bili Direct 0.2 0.0 - 0.3 10/24 Normal [facility] CHEMISTRY Total Protein 5.8 6.4 - 8.4 10/24 LOW [facility] CHEMISTRY AST 41 0 - 37 10/24 HI [facility] CHEMISTRY Bili Indirect 0.3 0.0 - 1.0 10/24 Normal [facility] CHEMISTRY Globulin 3.1 2.0 - 4.0 10/24 Normal [facility] CHEMISTRY A/G Ratio 0.9 0.7 - 1.6 10/24 Normal [facility] CHEMISTRY POC A Mode NC-3LPM 10/24 NA [facility] CHEMISTRY POC A HCO3 19 22 - 26 10/24 LOW [facility] CHEMISTRY POC A O2 Sat 98.0 95.0 - 10/24 Normal [place] 100.0 [facility] CHEMISTRY POC A BE -6 -2-2 - 2 10/24 LOW [facility] CHEMISTRY POC A PO2 103 80 - 100 10/24 HI [facility] CHEMISTRY POC A pH 7.35 7.35 - 10/24 LOW [facility] 7.45 [facility] CHEMISTRY POC A PCO2 34 35 - 45 10/24 LOW [facility] CHEMISTRY POC A Temp 37.0 10/24 NA [facility] CHEMISTRY POC A Source ART 10/24 NA [facility] CHEMISTRY Troponin-T 0.688 0.000 - 10/24 CRIT <sup>16</sup> [facility] 0.100 Result Medical Comment: Center Critical Result(s) called to Maribel Bustos at 10/24/2012 13:23:46 [employer] by lwb . Read back OK. CHEMISTRY Troponin-I 7.61 0.00 - 10/24 CRIT <sup>19</sup> [facility] 0.40 /2012 Result Medical Comment: Center Critical Result(s) called to mariana bustos at 10/24/2012 13:37:22 CSTby_lss. Read back OK. CHEMISTRY Total CK 150 12 - 191 10/24 Normal [facility] CHEMISTRY Lactic Acid 0.7 0.5 - 2.2 10/24 Normal [facility] Lvl [facility] CHEMISTRY CK MB Index 11.0 0.0 - 2.5 10/24 HI [facility] CHEMISTRY CK MB 16.5 0.5 - 3.6 10/24 HI [facility] CHEMISTRY Troponin-T 0.750 0.000 - 10/24 CRIT <sup>17</sup> [facility] 0.100 Result Medical Comment: Center Critical Result(s) called to Lyn King at 10/24/2012 09:52:38 [employer] by lwb . Read back OK. CHEMISTRY Troponin-I 7.60 0.00 - 10/24 CRIT <sup>20</sup> [place] 0.40 /2012 Result Medical Comment: Center Critical Result(s) called to romero beltre at _10/24/2012 09:50:18 [employer] by_lss. Read back OK. CHEMISTRY Total CK 170 12 - 191 10/24 Normal <sup>14</sup> Result Medical Comment: Center Specimen Moderately Hemolyzed. CHEMISTRY CK MB Index 10.5 0.0 - 2.5 10/24 HI [facility] CHEMISTRY CK MB 17.8 0.5 - 3.6 10/24 HI [facility] CHEMISTRY Ketone 0.07 <=0.27 10/24 Normal [facility] CHEMISTRY Ketone 2.61 <=0.27 10/24 HI [facility] CHEMISTRY CK MB 30.9 0.5 - 3.6 10/24 HI [facility] CHEMISTRY CK MB Index 12.2 0.0 - 2.5 10/24 HI [facility] CHEMISTRY Total CK 254 12 - 191 10/24 HI [facility] CHEMISTRY Lactic Acid 0.6 0.5 - 2.2 10/24 Normal [facility] Lvl [facility] CHEMISTRY POC V O2 Sat 56.0 40.0 - 10/24 Normal [place] 70.0 [facility] CHEMISTRY POC V HCO3 22 22 - 26 10/24 Normal [facility] CHEMISTRY POC V PO2 32 20 - 49 10/24 Normal [facility] CHEMISTRY POC V BE -4 -2-2 - 2 10/24 LOW [facility] CHEMISTRY POC V PCO2 41 38 - 52 10/24 Normal [facility] CHEMISTRY POC V pH 7.33 7.28 - 10/24 Normal [place] 7.42 [facility] CHEMISTRY POC V Temp 37.0 10/24 NA [facility] CHEMISTRY POC V Source MARK 10/24 NA [facility] CHEMISTRY Ketone 0.93 <=0.27 10/24 HI [facility] Microbiolog Culture: 10/24 [facility] y [facility] CHEMISTRY Lactic Acid 0.6 0.5 - 2.2 10/23 Normal [facility] Lvl [facility] Microbiolog Culture: 10/23 [facility] y Blood Medical Center CHEMISTRY POC A [...] Na 133 135 - 145 10/23 LOW [facility] CHEMISTRY POC A K 3.8 3.5 - 5.1 10/23 Normal [facility] CHEMISTRY A/G Ratio 0.8 0.7 - 1.6 10/23 [facility] CHEMISTRY AST 90 0 - 37 10/23 [facility] CHEMISTRY Globulin 3.9 2.0 - 4.0 10/23 Normal [facility] CHEMISTRY B/C Ratio 16 6 - 25 10/23 [facility] CHEMISTRY Total Protein 7.2 6.4 - 8.4 10/23 Normal [facility] CHEMISTRY Bili Total 0.5 0.2 - 1.3 10/23 [facility] CHEMISTRY Albumin Lvl 3.3 3.5 - 5.0 10/23 [facility] CHEMISTRY Alk Phos 94 39 - 136 10/23 [facility] CHEMISTRY ALT 23 0 - 65 10/23 [facility] CHEMISTRY Osmolality 292 280 - 300 10/23 Normal [facility] CHEMISTRY Myoglobin 128 25 - 72 10/23 [facility] Microbiolog Culture: 10/23 [facility] y [facility] Screen BACTERIAL - MRSA by PCR Positive 1, 2 10/23 ABN <sup>1</sup>R [facility] SEROLOGY *ABN* /2012 [facility]ult Medical (10/23/2012 11:37:00) [...] the Molecular Diagnostic Laboratory within the [facility]. The Molecular Diagnostic Laboratory is authorized under the Clinical Laboratory Improvement Amendment of 1988 (CLIA-88) to perform high complexity testing. CHEMISTRY Osmolality 309 280 - 300 10/23 [facility] CHEMISTRY POC A Hct 37.0 36.0 - 10/23 [facility] 48.0 [facility] CHEMISTRY POC A Na 129 135 - 145 10/23 LOW [facility] CHEMISTRY POC A LA 1.0 0.5 - 2.2 10/23 [facility] CHEMISTRY POC A K 4.5 3.5 - 5.1 10/23 [facility] CHEMISTRY POC A Glu >425 70 - 99 10[facility] CHEMISTRY POC A Ca Ion 1.18 1.16 - 10/23 [facility] 1.30 /2012 [facility] CHEMISTRY POC A PCO2 30 35 - 45 10/23 CRIT [facility] CHEMISTRY POC A PO2 123 80 - 100 10/23 [facility] CHEMISTRY POC A Temp 37.0 10/23 [facility] CHEMISTRY POC A HCO3 14 22 - 26 10/23 [facility] CHEMISTRY POC A Source ART 10/23 NA Medical [place] CHEMISTRY POC A pH 7.27 7.35 - 10/23 LOW [facility] 7.45 [facility] CHEMISTRY POC A BE -12 -2-2 - 2 10/23 [facility] CHEMISTRY POC A O2 Sat 98.0 95.0 - 10/23 Normal [place] 100.0 [facility] CHEMISTRY Bili Direct 0.4 0.0 - 0.3 10/23 [facility] CHEMISTRY Lipase Lvl 54 73 - 393 10/23 [facility] CHEMISTRY Amylase Lvl 28 25 - 115 10/23 Normal [facility] CHEMISTRY B/C Ratio 10 6 - 25 10/23 Normal [facility] BLOOD BANK Antibody Scrn Negative 10/23 Normal [facility] RESULTS (10/23/2012 01:00:00) Medical Center BLOOD BANK ABO/Rh A POS 10/23 Unknown [facility] RESULTS Medical Center URINALYSIS UA 0.1 - 1.0 10/23 NA [facility] Urobilinogen /2012 Medical Center URINALYSIS UA Sq Epi Moderate /LPF Few 10/23 ABN [facility] *ABN* Medical (10/23/2012 00:01:00) Center URINALYSIS UA Leuk Est Negative Negative 10/23 Normal [facility] (10/23/2012 00:01:00) Medical Center URINALYSIS UA Nitrite Negative Negative 10/23 Normal [facility] (10/23/2012 00:01:00) Medical Center URINALYSIS UA Blood Negative Negative 10/23 Normal [facility] (10/23/2012 00:01:00) Medical Center URINALYSIS UA Glucose >=1000 mg/dL Negative 10/23 ABN [facility] *ABN* Medical (10/23/2012 00:01:00) Center URINALYSIS UA Protein 10 mg/dL Negative 10/23 ABN [facility] *ABN* Medical (10/23/2012 00:01:00) Center URINALYSIS UA pH 5.0 5.0 - 8.0 10/23 Normal [facility] URINALYSIS UA WBC 1 0 - 5 10/23 Normal [facility] URINALYSIS UA Bili Negative Negative 10/23 NA [facility] *NA* Medical (10/23/2012 00:01:00) Center URINALYSIS UA Ketones >=150 mg/dL Negative 10/23 ABN [facility] *ABN* Medical (10/23/2012 00:01:00) Center URINALYSIS UA Spec Grav 1.015 <=1.030 10/23 Normal [facility] URINALYSIS UA Turbidity Clear Clear 10/23 Normal [facility] (10/23/2012 00:01:00) [facility] URINALYSIS UA Color Light Yellow Yellow 10/23 NA [facility] *NA* Medical (10/23/2012 00:01:00) Center BEDSIDE Gluc POC 265 70 - 99 10/08 HI <sup>1</sup>I [facility] GLUCOSE [facility] nterpretive Medical TESTING Data: Center Upper Reportable Limit: 200 mg/dL. BEDSIDE Comment1 Notify 10/08 NA [facility] GLUCOSE RN/MD /2012 Medical TESTING Center BEDSIDE Comment1 Notify 10/08 NA [facility] GLUCOSE RN/MD /2012 Medical TESTING Center BEDSIDE Gluc POC 204 70 - 99 10/08 HI <sup>2</sup>I [facility] GLUCOSE [facility] nterpretive Medical TESTING Data: Center Upper Reportable Limit: 200 mg/dL. CHEMISTRY Phosphorus 2.7 2.5 - 4.5 10/08 Normal [facility] CHEMISTRY Magnesium Lvl 1.6 1.8 - 2.4 10/08 LOW [facility] CHEMISTRY Ca Ion 1.17 1.16 - 02 Normal [facility] 1. [facility] CHEMISTRY Ca Norm 1.18 1.16 - 02 Normal [facility] 1. [facility] CHEMISTRY Ca Ion mgdL 4.68 4.65 - 02 Normal [facility] 5. [facility] CHEMISTRY Ca Norm mgdL 4.72 4.65 - 10/08 Normal [facility] 5. [facility] CHEMISTRY AGAP 17.6 10.0 - 10/08 Normal [facility] 20.0 [facility] CHEMISTRY eGFR 109 10/08 NA [...] CO2 24 24 - 32 10/08 Normal [facility] CHEMISTRY Calcium Lvl 8.5 8.5 - 10.5 10/08 Normal [facility]2012 [facility] CHEMISTRY Potassium Lvl 3.6 3.5 - 5.1 10/08 Normal [facility]2012 [facility] CHEMISTRY Chloride Lvl 96 95 - 109 10/08 Normal [facility]2012 [facility] CHEMISTRY Creatinine 0.6 0.5 - 1.4 10/08 Normal [facility] CHEMISTRY Sodium Lvl 134 135 - 145 10/08 LOW [facility]2012 [facility] CHEMISTRY Glucose Lvl 129 70 - 99 10/08 HI <sup>7</sup>I nterpretive Medical Data: Adult Center reference range values reflect the clinical guidelines
of the [employer]. CHEMISTRY BUN 4 7 - 22 10/08 LOW [facility] HEMATOLOGY Monocytes # 1.1 0.0 - 0.8 10/08 HI [facility]2012 [facility] HEMATOLOGY Eosinophils # 0.3 0.0 - 0.5 10/08 Normal [facility]2012 [facility] HEMATOLOGY Basophils # 0.1 0.0 - 0.2 10/08 Normal [facility]2012 [facility] HEMATOLOGY Microcyte 1+ None Seen 10/08 [facility] *ABN* /2012 Medical (10/08/2012 03:57:00) Center HEMATOLOGY Segs 55.7 45.0 - 10/08 Normal [facility] [place] 75.0 /2013 [facility] HEMATOLOGY Lymphocytes 31.3 20.0 - 02/ Normal [place] 40.0 /2012 [facility] HEMATOLOGY Monocytes 10.0 2.0 - 12.0 02/ Normal [facility] HEMATOLOGY Eosinophils 2.5 0.0 - 4.0 02/ Normal [facility] HEMATOLOGY Segs-Bands # 6.1 1.5 - 8.1 02/ Normal [facility] HEMATOLOGY Basophils 0.5 0.0 - 1.0 02/ Normal [facility] HEMATOLOGY Lymphocytes # 3.4 1.0 - 5.5 02/ Normal [facility] HEMATOLOGY RDW 16.9 11.5 - 02/ [facility] 14.5 /2012 [facility] HEMATOLOGY Platelet 218 133 - 450 02/ Normal /2012 [facility] HEMATOLOGY WBC 10.9 3.7 - 10.4 02/ [facility] HEMATOLOGY RBC 4.35 4.20 - 02 Normal [facility] 5.40 [facility] HEMATOLOGY MPV 9.7 7.4 - 10.4 02/ Normal [facility] HEMATOLOGY Hgb 10.4 12.0 - 02/ LOW [facility] 16.0 /2012 [facility] HEMATOLOGY Hct 32.7 36.0 - 02/ [facility] 48.0 /2012 [facility] HEMATOLOGY MCHC 31.8 32.0 - 02/ [facility] 36.0 /2012 [facility] HEMATOLOGY MCV 75.2 81.0 - 02/ [facility] 99.0 /2012 [facility] HEMATOLOGY MCH 23.9 27.0 - 02/ [facility] 31.0 /2012 [facility] BEDSIDE Comment1 Notify 10/08 NA [facility] GLUCOSE RN/MD /2012 Medical TESTING Center BEDSIDE Gluc POC 247 70 - 99 10/08 HI <sup>3</sup>I [facility] GLUCOSE [facility] /2012 nterpretive Medical TESTING Data: Center Upper Reportable Limit: 200 mg/dL. CHEMISTRY Magnesium Lvl 2.1 1.8 - 2.4 10/07 Normal [facility] CHEMISTRY Ca Norm 1.16 1.16 - 02 [facility] 1.30 [facility] CHEMISTRY Ca Ion mgdL 4.72 4.65 - 02 [facility] 5.20 /2012 [facility] CHEMISTRY Ca Norm mgdL 4.64 4.65 - 02 LOW [facility] 5.20 [facility] CHEMISTRY Ca Ion 1.18 1.16 - 02 Normal [facility] 1.30 [facility] CHEMISTRY Phosphorus 2.6 2.5 - 4.5 10/07 Normal [facility] CHEMISTRY Calcium Lvl 8.1 8.5 - 10.5 10/07 LOW [facility] CHEMISTRY AGAP 19.4 10.0 - 10/07 Normal [facility] 20.0 [facility] CHEMISTRY eGFR 116 10/07 NA [...] CHEMISTRY BUN 6 7 - 22 10/[address] [facility] CHEMISTRY Glucose Lvl 99 70 - 99 10/07 Normal <sup>8</sup>I nterpretive Medical Data: Adult Center reference range values reflect the clinical guidelines
of the [employer]. CHEMISTRY Creatinine 0.5 0.5 - 1.4 10/07 Normal [facility] Lvl [facility] CHEMISTRY Potassium Lvl 3.4 3.5 - 5.1 10/07 LOW [facility] CHEMISTRY Sodium Lvl 135 135 - 145 10/07 Normal [facility] CHEMISTRY CO2 24 24 - 32 10/07 Normal [facility] CHEMISTRY Chloride Lvl 95 95 - 109 10/07 Normal [facility] HEMATOLOGY MCHC 31.8 32.0 - 02/ [facility] [place] 36.0 /2012 [facility] HEMATOLOGY MCH 24.1 27.0 - [address] [facility] [place] 31.0 [facility] HEMATOLOGY MCV 75.7 81.0 - [address] [facility] [place] 99.0 /2012 [facility] HEMATOLOGY Hct 31.0 36.0 - 02/ [facility] [place] 48.0 /2012 [facility] HEMATOLOGY Hgb 9.9 12.0 - [address] [facility] [place] 16.0 /2012 [facility] HEMATOLOGY MPV 9.1 7.4 - 10.4 02 Normal [facility] HEMATOLOGY Platelet 222 133 - 450 02 Normal [facility] HEMATOLOGY RDW 16.8 11.5 - 10/07 [facility] 14.5 /2012 [facility] HEMATOLOGY RBC 4.10 4.20 - 10/[address] [facility] [place] 5.40 /2012 [facility] HEMATOLOGY WBC 13.8 3.7 - 10.4 10/07 [facility] HEMATOLOGY Segs-Bands # 9.6 1.5 - 8.1 02 [facility] HEMATOLOGY Basophils 0.3 0.0 - 1.0 02 Normal [facility] HEMATOLOGY Eosinophils 1.0 0.0 - 4.0 10/07 Normal [facility] HEMATOLOGY Microcyte 1+ None Seen 10/07 [facility] *ABN* /2012 Medical (10/07/2012 03:25:00) [place] HEMATOLOGY Lymphocytes # 2.9 1.0 - 5.5 02 Normal [facility] HEMATOLOGY Eosinophils # 0.1 0.0 - 0.5 02 Normal [facility] HEMATOLOGY Monocytes # 1.2 0.0 - 0.8 02 [facility] HEMATOLOGY Monocytes 8.8 2.0 - 12.0 02 Normal [facility] HEMATOLOGY Lymphocytes 20.8 20.0 - 02 Normal [facility] 40.0 [facility] HEMATOLOGY Segs 69.1 45.0 - 10/07 Normal [place] 75.0 [facility] URINALYSIS UA Glucose 500mg/dL 10/06 NA [facility] URINALYSIS UA 0.1 - 1.0 10/06 [facility] Urobilinogen /2012 [facility] URINALYSIS Micro? Performed 10/06 NA [facility] *NA* Medical (10/06/2012 11:42:00) Center URINALYSIS UA [place] Yeast Moderate /HPF None [facility]en 10/06 [facility] (10/06/2012 11:42:00) Center URINALYSIS UA RBC 3 0 - 2 10/06 HI [facility] URINALYSIS UA Bacteria Many /HPF None Seen 10/06 [facility] (10/06/2012 11:42:00) Center URINALYSIS UA WBC 3 0 - 5 10/06 Normal [facility] URINALYSIS UA Leuk Est Negative Negative 10/06 Normal [facility] (10/06/2012 11:42:00) Medical Center URINALYSIS UA Nitrite Negative Negative 10/06 Normal [facility] (10/06/2012 11:42:00) [facility] URINALYSIS UA Sq Epi Many /LPF Few 10/06 ABN [facility] Medical (10/06/2012 11:42:00) Center URINALYSIS UA Bili Negative Negative 10/06 [facility] (10/06/2012 11:42:00) Center URINALYSIS UA Blood Negative Negative 10/06 Normal [facility] (10/06/2012 11:42:00) [facility] URINALYSIS UA pH 5.5 5.0 - 8.0 10/06 Normal [facility] URINALYSIS UA Protein 20 mg/dL Negative 10/06 [facility] (10/06/2012 11:42:00) Center URINALYSIS UA Ketones >=150 mg/dL Negative 10/06 ABN [facility] Medical (10/06/2012 11:42:00) Center URINALYSIS UA Color Yellow Yellow 10/06 [facility] (10/06/2012 11:42:00) Center URINALYSIS UA Turbidity Slight Clear 10/06 [facility] (10/06/2012 11:42:00) Center URINALYSIS UA Spec Grav 1.011 <=1.030 10/06 Normal [facility] URINALYSIS UA Mucus Few /LPF None Seen 10/06 NA [facility] *NA* /2012 Medical (10/06/2012 11:42:00) Center Microbiolog Culture: 10/06 [facility] y Urine [facility] CHEMISTRY Phosphorus 2.5 2.5 - 4.5 10/06 Normal [facility] CHEMISTRY Magnesium Lvl 1.5 1.8 - 2.4 10/06 LOW [facility] CHEMISTRY eGFR 76 10/06 NA [...] Lvl 3.9 3.5 - 5.1 10/06 Normal [facility] CHEMISTRY Chloride Lvl 97 95 - 109 10/06 Normal [facility] CHEMISTRY Calcium Lvl 8.3 8.5 - 10.5 10/06 LOW [facility] CHEMISTRY CO2 22 24 - 32 10/06 [facility] CHEMISTRY Glucose Lvl 234 70 - 99 10/06 [place] <sup>9</sup>I nterpretive Medical Data: Adult Center reference range values reflect the clinical guidelines
of the [employer]. CHEMISTRY Creatinine 0.9 0.5 - 1.4 10/06 Normal [facility] CHEMISTRY BUN 9 7 - 22 10/06 Normal [facility] CHEMISTRY Sodium Lvl 134 135 - 145 10/[address] [facility] CHEMISTRY AGAP 18.9 10.0 - 10/06 Normal [place] 20.0 /2012 [facility] HEMATOLOGY Segs-Bands # 13.3 1.5 - 8.1 10/06 [facility] HEMATOLOGY Basophils 0.2 0.0 - 1.0 10/06 Normal [facility] HEMATOLOGY Eosinophils 0.1 0.0 - 4.0 10/06 Normal [facility] HEMATOLOGY Monocytes 6.7 2.0 - 12.0 10/06 Normal [facility] HEMATOLOGY Segs 81.7 45.0 - 10/06 [facility] [place] 75.0 /2012 Medical Center HEMATOLOGY Lymphocytes 11.3 20.0 - 10/06 LOW [place] 40.0 /2012 [facility] HEMATOLOGY Microcyte 1+ None Seen 10/06 [facility] [place] *ABN* /2012 Medical (10/06/2012 04:25:00) [place] HEMATOLOGY Monocytes # 1.1 0.0 - 0.8 10/06 [facility] HEMATOLOGY Lymphocytes # 1.8 1.0 - 5.5 10/06 Normal [facility] HEMATOLOGY RBC 4.28 4.20 - 10/06 Normal [place] 5.40 /2012 Medical Center HEMATOLOGY WBC 16.3 3.7 - 10.4 10/06 [facility] HEMATOLOGY Hgb 10.3 12.0 - 10/[address] [facility] [place] 16.0 /2012 [facility] HEMATOLOGY Hct 32.6 36.0 - 10/[address] [facility] [place] 48.0 /2012 Medical Center HEMATOLOGY MCH 24.0 27.0 - 10/[address] [facility] [place] 31.0 /2012 [facility] HEMATOLOGY MCV 76.1 81.0 - 10/[address] [facility] [place] 99.0 /2012 Medical Center HEMATOLOGY MCHC 31.5 32.0 - 10/[address] [facility] [place] 36.0 /2012 [facility] HEMATOLOGY RDW 17.2 11.5 - 10/06 [facility] [place] 14.5 [facility] HEMATOLOGY Platelet 248 133 - 450 10/06 [facility] HEMATOLOGY MPV 9.5 7.4 - 10.4 10/06 [facility] CHEMISTRY Ca Norm 1.07 1.16 - 10/[address] [facility] [place] 1.30 [facility] CHEMISTRY Ca Ion mgdL 4.36 4.65 - 10/[address] [facility] [place] 5.20 [facility] CHEMISTRY Ca Norm mgdL 4.28 4.65 - 10/05 LOW [facility] 5.20 [facility] CHEMISTRY Ca Ion 1.09 1.16 - 10/05 LOW [facility] 1.30 [facility] HEMATOLOGY Basophils # 0.1 0.0 - 0.2 10/05 Normal [facility] HEMATOLOGY Eosinophils # 0.1 0.0 - 0.5 10/05 Normal [facility] CHEMISTRY U Preg Negative Negative 10/03 Normal [facility] (10/03/2012 06:31:00) [facility] BLOOD BANK ABO/Rh A POS 10/03 Unknown [facility] RESULTS /2012 [facility] BLOOD BANK Antibody Scrn Negative 10/03 Normal [facility] RESULTS (10/03/2012 06:00:00) [facility] CHEMISTRY Total Protein 7.8 6.4 - 8.4 09/23 Normal [facility] CHEMISTRY AST 31 0 - 37 09/23 Normal [facility] CHEMISTRY Bili Total 0.3 0.2 - 1.3 09/23 Normal [facility] CHEMISTRY ALT 50 0 - 65 09/23 Normal [facility] CHEMISTRY Albumin Lvl 3.6 3.5 - 5.0 09/23 Normal [facility] CHEMISTRY Alk Phos 150 39 - 136 09/23 HI [facility] CHEMISTRY B/C Ratio 21 6 - 25 09/23 Normal [facility] CHEMISTRY Globulin 4.2 2.0 - 4.0 09/23 HI [facility] CHEMISTRY A/G Ratio 0.9 0.7 - 1.6 09/23 Normal [facility] HEMATOLOGY Hypochrom Slight None Seen 09/23 Normal [facility] (09/23/2012 12:35:00) /2012 [facility] HEMATOLOGY Elliptocyte Slight None Seen 09/23 ABN [facility] *ABN* /2012 Medical (09/23/2012 12:35:00) Center HEMATOLOGY Basophils # 0.1 0.0 - 0.2 09/23 Normal [facility] HEMATOLOGY Plt Morph Normal 09/23 Normal [facility] (09/23/2012 12:35:00) [facility] URINALYSIS UA 0.1 - 1.0 09/23 NA [facility] Urobilinogen /2012 [facility] URINALYSIS UA Nitrite Negative Negative 09/23 Normal [facility] (09/23/2012 12:35:00) Medical Center URINALYSIS UA Blood Negative Negative 09/23 Normal [facility] (09/23/2012 12:35:00) Medical Center URINALYSIS UA Leuk Est Negative Negative 09/23 Normal [facility] (09/23/2012 12:35:00) Medical Center URINALYSIS Micro? Not Indicated 09/23 NA [facility] (09/23/2012 12:35:00) Center URINALYSIS UA Ketones Negative mg/dL Negative 09/23 NA [facility] * [facility] (09/23/2012 12:35:00) Center URINALYSIS UA Bili Negative Negative 09/23 [facility] (09/23/2012 12:35:00) Center URINALYSIS UA Protein Negative mg/dL Negative 09/23 Normal [facility] (09/23/2012 12:35:00) Medical Center URINALYSIS UA pH 5.0 5.0 - 8.0 09/23 Normal [facility] URINALYSIS UA Glucose Negative mg/dL Negative 09/23 NA [facility] * [facility] (09/23/2012 12:35:00) Center URINALYSIS UA Color Light Yellow Yellow 09/23 NA [facility] (09/23/2012 12:35:00) Center URINALYSIS UA Spec Grav 1.004 <=1.030 09/23 Normal [facility] URINALYSIS UA Turbidity Clear Clear 09/23 Normal [facility] (09/23/2012 12:35:00) Medical Center BEDSIDE Gluc POC 153 70 - 99 06/28 [place] <sup>1</sup>I [facility] GLUCOSE Lifscn nterpretive Medical TESTING Data: Center Upper Reportable Limit: 200 mg/dL. CHEMISTRY U Preg Negative Negative 06/28 Normal [facility] (06/28/2012 07:27:00) Medical Center Pathology Reports No Data Provided for This Section Diagnostic Reports Report Value Date Source Abdomen/Pelvis w EXAM: CT ABDOMEN WITH CONTRAST 07/12/2013 [facility] Medical contrast CT EXAM: CT PELVIS WITH [...] views EXAM: XR ABDOMEN 1 VIEW 04/03/2013 [facility] DATE: March 25 90,013. INDICATION: Nausea. [...] 1view EXAM: XR CHEST 1 VIEW 04/02/2013 [facility] DATE: 2013-04-02 1638 hours INDICATION: Chest [...] Chest 1view EXAM: CHEST 1 VIEW 03/07/2013 [facility] DATE: Mar 07, 2013 07:45:00 AM [...] 2 views EXAM: CHEST 2 VIEWS 03/06/2013 [facility] DATE: Mar 06, 2013 06:47:00 PM [...] Comments Source Systolic (mm Hg) 124 08/13/2013 [facility] Respitory Rate 18 08/13/2013 [facility] Temperature Oral (F) 98.8 F 08/13/2013 [facility] Heart Rate 102 08/13/2013 [facility] Diastolic (mm Hg) 46 08/13/2013 [facility] Systolic (mm Hg) 107 08/13/2013 [facility] Respitory Rate 18 08/13/2013 [facility] Diastolic (mm Hg) 63 08/13/2013 [facility] Heart Rate 103 08/13/2013 [facility] Heart Rate 105 08/13/2013 [facility] Respitory Rate 18 08/13/2013 [facility] Systolic (mm Hg) 117 08/13/2013 [facility] Center Diastolic (mm Hg) 70 08/13/2013 [facility] Weight 81.818 08/13/2013 [facility] Height 162.56 cm 08/13/2013 [facility] Temperature Oral (F) 98.4 F 08/13/2013 [facility] Center Diastolic (mm Hg) 61 07/15/2013 [facility] Temperature Oral (F) 97.7 F 07/15/2013 [facility] Systolic (mm Hg) 117 07/15/2013 [facility] Respitory Rate 18 07/15/2013 [facility] Heart Rate 90 07/15/2013 [facility] Center Respitory Rate 18 07/14/2013 [facility] Heart Rate 104 07/14/2013 [facility] Center Diastolic (mm Hg) 46 07/14/2013 [facility] Center Systolic (mm Hg) 91 07/14/2013 [facility] Center Diastolic (mm Hg) 61 07/14/2013 [facility] Center Systolic (mm Hg) 95 07/14/2013 [facility] Respitory Rate 18 07/14/2013 [facility] Heart Rate 120 07/14/2013 [facility] Temperature Oral (F) 97.5 F 07/14/2013 [facility] Temperature Oral (F) 97.6 F 07/14/2013 [facility] Height 162.56 cm 07/12/2013 [facility] Weight 86.364 07/12/2013 [facility] Temperature Oral (F) 97.1 F 04/03/2013 [facility] Center Respitory Rate 18 04/03/2013 [facility] Heart Rate 79 04/03/2013 [facility] Center Diastolic (mm Hg) 66 04/03/2013 [facility] Center Systolic (mm Hg) 94 04/03/2013 [facility] Center Diastolic (mm Hg) 28 04/03/2013 [facility] Center Systolic (mm Hg) 116 04/03/2013 [facility] Center Respitory Rate 20 04/03/2013 [facility] Heart Rate 100 04/03/2013 [facility] Temperature Oral (F) 97.0 F 04/03/2013 [facility] Height 162.56 cm 04/03/2013 [facility] Weight 90 04/03/2013 [facility] Height 162.56 cm 04/02/2013 [facility] Weight 90 04/02/2013 [facility] Center Systolic (mm Hg) 132 03/09/2013 [facility] Center Diastolic (mm Hg) 72 03/09/2013 [facility] Heart Rate 114 03/09/2013 [facility] Temperature Oral (F) 97.7 F 03/09/2013 [facility] Center Respitory Rate 20 03/09/2013 [facility] Temperature Oral (F) 97.7 F 03/09/2013 [facility] Heart Rate 108 03/09/2013 [facility] Center Systolic (mm Hg) 143 03/09/2013 [facility] Center Respitory Rate 18 03/09/2013 [facility] Center Diastolic (mm Hg) 81 03/09/2013 [facility] Heart Rate 115 03/09/2013 [facility] Center Diastolic (mm Hg) 70 03/09/2013 [facility] Center Systolic (mm Hg) 153 03/09/2013 [facility] Center Respitory Rate 18 03/09/2013 [facility] Temperature Oral (F) 97.5 F 03/09/2013 [facility] Weight 90 03/07/2013 [facility] Height 162.56 cm 03/07/2013 [facility] Height 162.56 cm 03/06/2013 [facility] Center Weight 90 03/06/2013 [facility] Center Systolic (mm Hg) 127 12/07/2012 [facility] Center Diastolic (mm Hg) 49 12/07/2012 [facility] Heart Rate 90 12/07/2012 [facility] Temperature Oral (F) 98.3 F 12/07/2012 [facility] Center Respitory Rate 18 12/07/2012 [facility] Systolic (mm Hg) 104 12/07/2012 [facility] Temperature Oral (F) 98.6 F 12/07/2012 [facility] Center Respitory Rate 18 12/07/2012 [facility] Heart Rate 78 12/07/2012 [facility] Center Diastolic (mm Hg) 57 12/07/2012 [facility] Heart Rate 89 12/07/2012 [facility] Temperature Oral (F) 97.6 F 12/07/2012 [facility] Respitory Rate 18 12/07/2012 [facility] Center Systolic (mm Hg) 105 12/07/2012 [facility] Center Diastolic (mm Hg) 51 12/07/2012 [facility] Weight 100 11/29/2012 [facility] Height 162.56 cm 11/29/2012 [facility] Weight 100.568 11/29/2012 [facility] Height 162.56 cm 11/29/2012 [facility] Weight 101.364 11/28/2012 [facility] Height 162.56 cm 11/28/2012 [facility] Center Diastolic (mm Hg) 55 11/17/2012 [facility] Center Systolic (mm Hg) 117 11/17/2012 [facility] Diastolic (mm Hg) 70 11/17/2012 [facility] Center Systolic (mm Hg) 118 11/17/2012 [facility] Center Diastolic (mm Hg) 61 11/17/2012 [facility] Center Systolic (mm Hg) 154 11/17/2012 [facility] Temperature Oral (F) 97.8 F 11/17/2012 [facility] Temperature Oral (F) 97.9 F 11/17/2012 [facility] Temperature Oral (F) 98.6 F 11/17/2012 [facility] Height 162.56 cm 11/17/2012 [facility] Weight 103.21 11/17/2012 [facility] Respitory Rate 18 11/17/2012 [facility] Height 162.56 cm 11/16/2012 [facility] Weight 100 11/16/2012 [facility] [place] [facility] Diastolic (mm Hg) 58 11/14/2012 [facility] Center Systolic (mm Hg) 121 11/14/2012 [facility] Center Respitory Rate 20 11/14/2012 [facility] Heart Rate 84 11/14/2012 [facility] Temperature Oral (F) 98.0 F 11/14/2012 [facility] Respitory Rate 20 11/14/2012 [facility] Center Systolic (mm Hg) 103 11/14/2012 [facility] Center Diastolic (mm Hg) 54 11/14/2012 [facility] Temperature Oral (F) 98.0 F 11/14/2012 [facility] Heart Rate 83 11/14/2012 [facility] Center Diastolic (mm Hg) 68 11/14/2012 [facility] Respitory Rate 20 11/14/2012 [facility] Heart Rate 79 11/14/2012 [facility] Systolic (mm Hg) 136 11/14/2012 [facility] Temperature Oral (F) 98.4 F 11/14/2012 [facility] Height 162.56 cm 11/06/2012 [facility] Weight 100 11/06/2012 [facility] Height 162.56 cm 11/06/2012 [facility] Center Weight 100 11/06/2012 [facility] Height 162.56 cm 11/06/2012 [facility] Weight 104.545 11/06/2012 [facility] Center Systolic (mm Hg) 131 11/01/2012 [facility] Center Diastolic (mm Hg) 62 11/01/2012 [facility] Systolic (mm Hg) 125 11/01/2012 [facility] Center Diastolic (mm Hg) 62 11/01/2012 [facility] Center Systolic (mm Hg) 155 10/31/2012 [facility] Center Diastolic (mm Hg) 54 10/31/2012 [facility] Temperature Oral (F) 99.7 F 10/31/2012 [facility] Temperature Oral (F) 96.7 F 10/31/2012 [facility] Temperature Oral (F) 98.1 F 10/31/2012 [facility] Center Respitory Rate 19 10/31/2012 [facility] Respitory Rate 19 10/31/2012 [facility] Center Respitory Rate 19 10/31/2012 [facility] Weight 78.2 10/24/2012 [facility] Heart Rate 126 10/23/2012 [facility] Heart Rate 130 10/23/2012 [facility] Weight 113.636 10/23/2012 [facility] Center Height 162.56 cm 10/23/2012 [facility] Heart Rate 119 10/23/2012 [facility] Height 162.56 cm 10/23/2012 [facility] Center Systolic (mm Hg) 123 10/08/2012 [facility] Center Respitory Rate 19 10/08/2012 [facility] Center Diastolic (mm Hg) 51 10/08/2012 [facility] Heart Rate 81 10/08/2012 [facility] Center Temperature Oral (F) 98.8 F 10/08/2012 [facility] Center Diastolic (mm Hg) 55 10/08/2012 [facility] Center Respitory Rate 20 10/08/2012 [facility] Center Systolic (mm Hg) 136 10/08/2012 [facility] Heart Rate 82 10/08/2012 [facility] Temperature Oral (F) 98.9 F 10/08/2012 [facility] Center Diastolic (mm Hg) 47 10/08/2012 [facility] Center Systolic (mm Hg) 107 10/08/2012 [facility] Temperature Oral (F) 98.1 F 10/08/2012 [facility] Center Respitory Rate 18 10/08/2012 [facility] Heart Rate 75 10/08/2012 [facility] Weight 118.200 10/03/2012 [facility] Height 162.56 cm 10/03/2012 [facility] Weight 118.182 09/23/2012 [facility] Height 162.56 cm 09/23/2012 [facility] Center Diastolic (mm Hg) 57 06/28/2012 [facility] Center Heart Rate 104 06/28/2012 [facility] Center Respitory Rate 18 06/28/2012 [facility] Center Systolic (mm Hg) 147 06/28/2012 [facility] Center Systolic (mm Hg) 153 06/28/2012 [facility] Center Diastolic (mm Hg) 61 06/28/2012 [facility] Center Respitory Rate 16 06/28/2012 [facility] Center Systolic (mm Hg) 136 06/28/2012 [facility] Center Diastolic (mm Hg) 52 06/28/2012 [facility] Center Respitory Rate 18 06/28/2012 [facility] Temperature Oral (F) 98.5 F 06/28/2012 [facility] Heart Rate 104 06/28/2012 [facility] Weight 118.182 06/14/2012 [facility] Height 162.56 cm 06/14/2012 [facility] Encounters Location Location Encounter Encounter Reason Attending ADM DC Status Source Details Type Number For Provider Date Date Visit [facility] DS [id number] DSU/ WOLFGANG 06/28 Active [facility] REFLUX SUSHILA /2011 Medical [facility] Inpatient [id number] WOLFGANG 10/03 10/[address] [facility] /2012 ed Medical [facility] Inpatient [id number] N/V DARELL 10/23 11/01 Active [facility] DEHYDRAT SDRINGOLA- /2012 Medical [place] ION MARANGA [facility] Inpatient [id number] LAVONE 11/05 11/14 Discharg [facility] ROSE /2012 ed Medical [facility] OU [id number] CHIP 11/16 11/17 Discharg [facility] MARKUS /2012 ed [facility] Center [facility] Inpatient [id number] JUAN J 11/29 12/07 Discharg [facility] BRANDO /2012 ed Medical [facility] OU [id number] SANJUANA 03/07 03/09 Discharg [facility] OSUAGWU /2012 ed Medical Center [facility] OU [id number] JEANNIE 04/02 04/03 Discharg [facility] ADOLFO /2012 ed Medical [facility] OU [id number] GASTROPA JEANNIE 07/12 07/14 Active [facility] ADOLFO /2012 Medical [facility] JACKIE [id number] WOLFGANG 07/26 07/27 Discharg [facility] SUSHILA /2012 ed Medical Center [facility] Emergency [id number] KATELYN 08/13 08/13 Discharg [facility] BUBLEWICZ /2012 ed Medical Center [facility] Outpatient [id number] SERGO WH[place] Cancel [facility] Center Procedures Procedure Code Date Perfomer Comments Source section [id number] [facility] Cholecystectomy [id number] [facility] <sup>1</sup> [facility] Hand repair [id number], x'2 [facility] <sup>2</sup> [facility] Tonsillectomy [id number] [facility] <sup>3</sup> [facility] Bypass of stomach [id number] [facility] Rotator cuff repair [id number] [facility] Heart procedure [id number] 1cardiac [facility] <sup>1</sup> stent for [facility] Assessment and Plan No Data Provided for This Section Plan of Care No Data Provided for This Section Social History No Data Provided for This Section Family History No Data Provided for This Section Advance Directives No Data Provided for This Section Functional Status No Data Provided for This Section
[2019-05-06 20:38] LABS: Urine Blood NEGATIVE (NEG); Urine Glucose 2+ (NEG); Urine Protein NEGATIVE (NEG)
[2019-05-06 20:39] LABS: ALT/SGPT 25 U/L (12-78); AST/SGOT 20 U/L (15-37); Albumin 3.4 g/dL (3.4-5.0); Alkaline Phosphatase 134 U/L (45-117); BUN Blood Urea Nitrogen 14 mg/dL (7-18); Bicarbonate 24 mmol/L (21-32); Bilirubin Direct 0.2 mg/dL (0-0.2); Bilirubin Total 0.4 mg/dL (0.2-1.0); Lipase 39 U/L (73-393); Potassium 4.5 mmol/L (3.5-5.1); Protein, Total 7.2 g/dL (6.4-8.2); Sodium Level 127 mmol/L (136-145)
--- OUTSIDE RECORDS SUMMARY | 2019-05-06 20:41 | XMS REPORT | CCD ---
:1965 Author Organization [facility] Care Team Providers Name Role Phone Milton Arabella Ruelas Consulting Provider Ezio Sifuentes Consulting Provider Allergies, Adverse Reactions, Alerts Substance Reaction Status NKDA Active Problem List Condition Effective Dates Status Acid reflux Resolved Anemia Resolved Anxiety Resolved Arthritis Resolved Depression Resolved Diabetes mellitus type 1 Resolved Edema of lower extremity Resolved Fibromyalgia Resolved Hyperlipidemia Resolved Hypertension Resolved MRSA1, 2 10/23/2012 Active 1nares 10/23/201204432Dlirhhx added by Discern Expert. Medications Medication Instructions [...] Duration: 30 day, Stop date: 12/06/12 1:48:00 [place] 5/325 oral tablet 1 tab, PO, Q6H, [...] Duration: 30 day, Stop date: 12/08/12 10:44:00 [place] 5/325 oral tablet 1 tab, Route: PO, [...] INJ, Q2H, Dosing Weight 100, kg, Total eorc=3778 mg, Start date: 11/14/12 8:00:00, Duration: 2 [...] 11/08/2012 11/08/2012 Canceled PO, Drug form: TAB, [id number], Dosing Weight 100, kg, Start date: 11/08/12 [...] [Negative] Negative 1 (11/12/2012 21:54:26) 1Interpretive Data: [employer] Clostridium difficile assay utilizes loop-mediated isothermalDNA amplification (LAMP) technology to detect a 204 bp region of the tcdA gene within the PaLoc genesegment present in all known toxigenic C. difficile strains. The assay utilizes FDA cleared IVD reagents. Performance characteristics have been verified by the Molecular Diagnostic Laboratory within the [facility]. The Molecular Diagnostic Laboratory is authorized [...] the clinical guidelines of the [place] [employer].10Interpretive Data: Adult reference range values reflect the clinical guidelines of the [place] [employer].11Result Comment: rechecked Critical Result (s) called leslie Conner Rose at 11/12/2012 02:56:37 WORK ORDER DETAILER by_mgm. Read back OK.12Interpretive Data: Adult reference range values reflect the clinical guidelines of the [place] [employer].13Result Comment: Critical Result(s) called to [...] 10.0 240 Poor Control, take action to ytoym54[place]uv[place] Comment : Critical Result(s) called leslie Rose [...] Catch FREE TEXT SOURCE: FINAL REPORTS Final Uqrsuf45,000 - 100,000 CFU/mL Enterococcus SpeciesPRELIMINARY REPORTS Preliminary Vhxbwl83,000 - 100,000 CFU/ mL Enterococcus Species Identification And Sensitivity PendingSUSCEPTIBILITY REPORT ENTERO Antibiotic INTERP. VDIL Ampicillin S Levofloxacin S Nitrofurantoin S Tetracycline R Vancomycin S
--- OUTSIDE RECORDS SUMMARY | 2019-05-06 20:41 | XMS REPORT | CCD ---
[...] Medication Instructions Start Date End Date Status [place] 325 mg-10 mg / 15 mL, Route: [...] Duration: 30 day, Stop date: 11/02/12 10:59:00 [place] 325 mg-10 mg / 30 mL, Route: PO, 10/04/2012 10/05/2012 Discontinued 15 mL oral solution Drug Form: SOLN, Dosing Weight 118.2, kg, Q4H, PRN Pain Score 6-10, Start date: 10/04/12 17:20:00, Duration: 30 day, Stop date: 11/03/12 17:19:00 [place] 325 mg-10 mg / 15 mL, Route: [...] 14:28:00, PRN Blood Glucose Results Blistex Lip [place] Route: TOP, Dosing 10/06/2012 10/06/2012 Deleted Weight [...] /LPF] Few /LPF *NA* (10/06/2012 11:42:00) UA [place] Yeast [None Seen /HPF] Moderate /HPF *ABN* [...] the clinical guidelines of the [place] [employer].8Interpretive Data: Adult reference range values reflect the clinical guidelines of the [place] [employer].9Interpretive Data: Adult reference range values reflect the clinical guidelines of the [place] [employer].HEMATOLOGY Most recent to oldest 1 [...] Catch FREE TEXT SOURCE: FINAL REPORTS Final Zylrin93,000 - 50,000 CFU/mL Enterococcus SpeciesPRELIMINARY REPORTS Preliminary Kvqdvf57,000 - 50,000 CFU/ mL Enterococcus Species ; Sensitivity PendingSUSCEPTIBILITY REPORT ENTERO Antibiotic INTERP. VDIL Ampicillin S Levofloxacin S Nitrofurantoin S Tetracycline R Vancomycin S Procedures Procedures Date Related Diagnosis section Cholecystectomy 1 Hand repair 2 Tonsillectomy 3 , [id number]
--- OUTSIDE RECORDS SUMMARY | 2019-05-06 20:42 | XMS REPORT | CCD ---
:1965 Author Organization [facility] Care Team Providers Name Role Phone Emeli Clark Consulting Provider Allergies, Adverse Reactions, Alerts Substance Reaction Status NKDA Active Problem List Condition Effective Dates Status Acid reflux Resolved Anemia Resolved Anxiety Resolved Arthritis Resolved Depression Resolved Diabetes mellitus type 1 Resolved Edema of lower extremity Resolved Fibromyalgia Resolved Hyperlipidemia Resolved Hypertension Resolved MRSA1, 2 10/23/2012 Active 1nares 10/23/201291677Qevhqcp added by Discern Expert. Medications Medication Instructions [...] 1 doses or times, Dose= 2.2ml/kg, Max qcxn=332zn -- "To be infused by Radiology Staff ONLY" 201211/16/2012 Discontinued Dose=2.2ml/kg, Max bgag=618hv -- "To be infused by Radiology Staff ONLY" calcium gluconate + Sodium 2,000 mg, 20 mL, Route: 11/17/2012 11/17/2012 Completed Chloride 0.9% IV 80 mL IVPB, ONCE, Dosing Weight 103.21, kg, Start date: 11/17/12 11:02:00, Stop date: 11/17/12 11:02:00 enoxaparin 40 mg, 0.4 mL, Route: 11/16/2012 11/17/2012 Discontinued SUB-Q, Drug form: INJ, [id number], Dosing Weight 100, kg, Start date: 11/16/12 [...] date: 11/16/12 13:40:00, Stop date: 11/16/12 13:40:00 [place] 5/325 oral tablet 1 tab, Route: PO, [...]
--- OUTSIDE RECORDS SUMMARY | 2019-05-06 20:42 | XMS REPORT | CCD ---
:1965 Author Organization [facility] Care Team Providers Name Role Phone Nikhil Hager Consulting Provider Sukhwinder Renteria Consulting Provider Allergies, Adverse Reactions, Alerts Substance Reaction Status NKDA Active Problem List Condition Effective Dates Status Acid reflux Resolved Anemia Resolved Anxiety Resolved Arthritis Resolved Depression Resolved Diabetes mellitus type 1 Resolved Edema of lower extremity Resolved Fibromyalgia Resolved Hyperlipidemia Resolved Hypertension Resolved MRSA1, 2 10/23/2012 Active 1nares 10/23/201232078Bhlfihl added by Discern Expert. Medications Medication Instructions [...] Duration: 1 doses or times, Dose=2.2ml/kg, Max uffj=812kp -- "To be infused by Radiology Staff ONLY" 10/2310/23/2012 Completed Dose=2.2ml/kg, Max fmdb=600kt -- "To be infused by Radiology Staff [...] Duration: 1 doses or times, Dose=2.2ml/kg, Max dqcn=718cp -- "To be infused by Radiology Staff ONLY" 10/2310/23/2012 Completed Dose=2.2ml/kg, Max mqdn=340hf -- "To be infused by Radiology Staff [...] by the Molecular Diagnostic Laboratory within the [facility]. The Molecular Diagnostic Laboratory is [...] the clinical guidelines of the [place] [employer].11Interpretive Data: Adult reference range values reflect the clinical guidelines of the [place] [employer].12Interpretive Data: Adult reference range values reflect the clinical guidelines of the [place] [employer].13Interpretive Data: Reference range is based on recommendations in the Endocrine Society Clinical Practice Guideline (J Clin Endocrinol Metab 2011;96:6334-7039)14Result Comment: Specimen Moderately Hemolyzed.15Result Comment: Critical Result(s) called to daisy otoole at 10/25/2012 01:18:09 [employer] by tac. Read back OK.16Result Comment: Critical Result(s) called to Maribel Bustos at 10/24/2012 13:23:46 [employer] by lwb . Readback OK.17Result Comment: Critical Result(s) called to Lyn King at 10/24/2012 09:52:38 [employer] by lwb . Read back OK.18Result Comment: Critical Result(s) called to Jelani Rasmussen at 10/25/2012 00: 47:48 [employer] by RM. Read back OK.19Result Comment: Critical Result(s) called to mariana bustos at _ 10/24/2012 13:37:22 CSTby_lss. Readback OK.20Result Comment : Critical Result(s) called to romero beltre at _10/24/2012 09:50:18 [employer] by_lss. Read back OK.21Interpretive Data: HbA1C% eAG(mg/dL) [...] Data: Heparin Therapeutic Range: 57 - 92 Pwejdeq82Clieqhoiqmvw Data: Heparin Therapeutic Range: 57 - 92 Yscqisu96Icrpdwsavijb Data: Heparin Therapeutic Range: 57 - 92 Seconds Microbiology Reports PROCEDURE:Culture: Urine STATUS: Auth (Verified) BODY SITE: COLLECTED DATE/TIME: 10/23/2012 20:33:00 SOURCE: Urine,Straight Cath FREE TEXT SOURCE: FINAL REPORTS Final Itujrn84,000 - 100,000 CFU/mL Gram Negative Rods , Lactose Fermenters , 2 [place] Types 50,000 - 100,000 CFU/mL Enterococcus Species [...]
--- OUTSIDE RECORDS SUMMARY | 2019-05-06 20:43 | XMS REPORT | CCD ---
[...] Resolved Fibromyalgia Resolved Hyperlipidemia Resolved Hypertension Resolved IN - Myocardial infarction 10/22/2012 Resolved MRSA1, 2, 3, 4 10/23/2012 Active Neuropathy Resolved - Nares - Xrsmd2drcaq 10/23/201293293Senhgak added by Discern Expert. Medications Medication Instructions [...] IVPB, Drug 12/02/2012 12/02/2012 Discontinued form: PDR/INJ, [id number], Dosing Weight 100, kg, Start date: 12/02/12 [...] 11/29/2012 11/29/2012 Discontinued SUB-Q, Drug form: INJ, [id number], Dosing Weight 101.364, kg, Start date: 11/29/12 [...] mg, 1 supp, Route: 12/04/2012 12/07/2012 Discontinued PA, Drug form: SUPP, Q4H, Dosing Weight 100, [...] date: 12/04/12 23:39:00, Stop date: 12/04/12 23:39:00 [place] 7.5/325 oral tablet 1 tab, Route: PO, [...] IVPB, Drug 11/29/2012 12/01/2012 Discontinued form: PDR/INJ, [id number], Dosing Weight 100, kg, Start date: 11/29/12 [...] 7:47:00 Phenergan 25 mg rectal 1 supp, PA, Q6H, PRN, 9 11/29/2012 Ordered suppository supp, [...] by the Molecular Diagnostic Laboratory within the [facility]. The Molecular Diagnostic Laboratory is authorized [...] Data: Heparin Therapeutic Range: 57 - 92 Ferzhbm47Zctmbzywaxmm Data: Heparin Therapeutic Range: 57 - 92 [...] Catch FREE TEXT SOURCE: FINAL REPORTS Final Ukfmln27,000 - 50,000 CFU/mL Yeast <10,000 CFU/mL Skin EsPRELIMINARY REPORTS Preliminary ReportNo Growth; Holding Procedures Procedures Date Related Diagnosis Heart procedure 1 1cardiac stent for IN
[2019-05-06 20:44] LABS: Glucose Level 523 mg/dL (74-106)
--- OUTSIDE RECORDS SUMMARY | 2019-05-06 20:44 | XMS REPORT | CCD ---
:1965 Author Organization [facility] Care Team Providers Name Role Phone Alberto [...] 10/23/2012 Active Neuropathy Resolved - Nares - Emgqr3fozzo 10/23/201270628Slvzrih added by Discern Expert. Medications Medication Instructions Start Date End Date Status acetaminophen-hydrocod 1 tab, Route: PO, Drug Form: 07/12/2013 07/14/2013 Discontinued one 325 mg-5 mg oral TAB, Dosing Weight 86.364, tablet kg, Q4H, PRN Pain, Start date: 07/12/13 18:23:00, Duration: 30 day, Stop date: 08/11/13 18:22:00(Same as: Alpha 325/5) Do not exceed 4gm/day of acetaminophen. [...] 1 doses or times, Dose =2.2ml/kg, Max zxpm=614pk -- "To be infused by Radiology Staff ONLY" 201207/12/2013 Completed Dose=2.2ml/kg, Max hiik=465uw -- "To be infused by Radiology Staff [...] day, Stop date: 08/11/13 9:00:00(Same as: Lopressor) [place] 5/325 oral 1 tab, Route: PO, Dosing [...] date: 08/11/13 9:00:00(Same as: Mag-Ox 400)Magnesium oxide 302vs=011sv elemental magnesiumDose=____mg magnesium oxide (___mg elemental magnesium) [...] [Negative] Negative 1 (07/13/2013 00:00:59) 1Interpretive Data: [employer] Clostridium difficile assay utilizes loop-mediated isothermalDNA amplification (LAMP) technology to detect a 204 bp region of the tcdA gene within the PaLoc genesegment present in all known toxigenic C. difficile strains. The assay utilizes FDA cleared IVD reagents. Performance characteristics have been verified by the Molecular Diagnostic Laboratory within the [facility]. The Molecular Diagnostic Laboratory is [...] /LPF] Many /LPF *ABN* (07/12/2013 03:00:00) UA [place] Yeast [None Seen /HPF] Moderate /HPF *ABN* [...] the clinical guidelines of the [place] [employer].9Interpretive Data: Adult reference range values reflect the clinical guidelines of the [place] [employer].10Interpretive Data: Adult reference range values reflect the clinical guidelines of the [place] [employer].HEMATOLOGY Most recent to oldest [Reference [...] to oldest [Reference Range]: 1 2 3 [place]-HIV 1/2 Ab [Negative] Negative *NA* (07/14/2013 00:27:00) [place]-Hep C Ab [Negative] Negative *NA* (07/14/2013 00:27:00) CDC-HIV 1/2 Ab [Negative] Negative *NA* (07/12/2013 16:02:06)
--- OUTSIDE RECORDS SUMMARY | 2019-05-06 20:44 | XMS REPORT | CCD ---
:1965 Author Organization [facility] Care Team Providers Name Role [...] 10/23/2012 Active Neuropathy Resolved - Nares - Eqnxl3lpegm 10/23/201201817Pdsfdqj added by Discern Expert. Medications Medication Instructions [...] guidelines of the [place] [employer].7Interpretive Data: Adult reference range values reflect the clinical guidelines of the [place] [employer].HEMATOLOGY Most recent to oldest [...]
--- OUTSIDE RECORDS SUMMARY | 2019-05-06 20:44 | XMS REPORT | CCD ---
:1965 Author Organization [facility] Care Team Providers Name Role [...] 10/23/2012 Active Neuropathy Resolved - Nares/ - Omzhu8fdabr 10/23/201202190Tkcjdjr added by Discern Expert. Medications Medication Instructions [...] 03/08/13 3:17:00, Stop date: 03/08/13 3:17:00 lidocaine-epi 1%-1:094784 1 ml, Route: SUB-Q, Drug 03/07/2013 03/07/2013 [...] date: 03/07/13 2:35:00, Stop date: 03/07/13 2:35:00 [place] 5/325 oral tablet 1 tab, PO, Q6H, [...] Results BEDSIDE GLUCOSE TESTING Most recent to [facility] 1 2 3 [Reference Range]: Gluc [...] Reportable Limit: 200 mg/dL.URINALYSIS Most recent to [facility] [Reference Range]: 1 2 3 UA [...] values reflect the clinical guidelines of the [place] Diabetes [employer].8Interpretive Data: Adult reference range values reflect the clinical guidelines of the [place] [employer].9Interpretive Data: Adult reference range values reflect the clinical guidelines of the [place] [employer].HEMATOLOGY Most recent to oldest 1 [...]
--- OUTSIDE RECORDS SUMMARY | 2019-05-06 20:44 | XMS REPORT | CCD ---
[...] 10/23/2012 Active Neuropathy Resolved - Nares - Ltvud8jowul 10/23/201226135Arkzchy added by Discern Expert. Medications Medication Instructions [...]
[2019-05-06 20:45] LABS: Urine Bacteria <20 /HPF (<20); Urine RBC NONE SEEN /HPF (NONE SEEN)
--- OUTSIDE RECORDS SUMMARY | 2019-05-06 20:45 | XMS REPORT ---
:1965 Author Organization [facility] Address [address] [place] [address] [address] [place] [address] Care Team Providers Name Role Phone SHANI [...] (BEAKER) (test 211 mg/dL 70-110 TESTED AT [address] pxsk=2526) [place] [id number] POCT-GLUCOSE [id number] 13:04:00 Test Item Value Reference Range Comments POC-GLUCOSE METER (BEAKER) 282 mg/dL 70-110 TESTED AT [address] (test vlcz=6236) [place] [id number] POCT-GLUCOSE [id number] 14:35:00 Test Item Value Reference Range Comments POC-GLUCOSE METER (BEAKER) 200 mg/dL 70-110 TESTED AT [address] (test prjt=6850) [place] [address] [id number] 12:24:00 Test Item Value Reference Range Comments SODIUM (BEAKER) (test leur=995) 136 meq/L 136-145 POTASSIUM (BEAKER) (test kjmf=183) 5.4 meq/L 3.5-5.1 CHLORIDE (BEAKER) (test clbp=802) 102 meq/L 98-107 CO2 (BEAKER) (test qjfv=553) 25 meq/L 22-29 [id number] 12:24:00 Test Item Value Reference Range Comments GLUCOSE RANDOM (BEAKER) (test ntlv=120) 353 mg/dL 70-105 BUN AND [id number] 12:24:00 Test Item Value Reference Range Comments BLOOD UREA NITROGEN 14 mg/dL 7-21 ([facility]) (test dxbm=489) CREATININE ([facility]) (test 1.08 mg/dL 0.57-1.25 vnwj=103) EGFR ([facility]) (test 53 mL/min/1.73 sq m ESTIMATED GFR IS NOT irex=8484) ACCURATE CREATININE CLEARANCE IN PREDICTING GLOMERULAR FILTRATION RATE. ESTIMATED GFR IS NOT APPLICABLE FOR DIALYSIS PATIENTS. POCT-HEMOGLOBIN [id number] 11:43:00 Test Item Value Reference Range Comments POC-HEMOGLOBIN METER 12.1 g/dL 12.0-15.0 [address]ED [address] ([facility]) (test vjkm=9269) [place] [address] POCT-GLUCOSE [id number] 11:43:00 Test Item Value Reference Range Comments POC-GLUCOSE METER ([facility]) 320 mg/dL 70-110 Verify with Lab draw/TESTED AT (test esvt=8333) [place] [id number] [address] [place] [address]
--- OUTSIDE RECORDS SUMMARY | 2019-05-06 20:45 | XMS REPORT | CCD ---
:1965 Author Organization [facility] Care Team Providers Name Role Phone [...] 10/23/2012 Active Neuropathy Resolved - Nares - Xpppr6xofux 10/23/201224815Eusnibu added by Discern Expert. Medications Medication Instructions [...] the clinical guidelines of the [place] [employer].HEMATOLOGY Most recent to oldest [Reference [...]
[2019-05-06 20:46] LABS: Urine Culture Reflex Order REFLEXED; Urine Yeast MANY (NONE SEEN)
[2019-05-06] MEDS ORDERED: INSULIN -REGULAR HUMAN 50 UNIT/0.5 ML ML ONE (21:09)
[2019-05-06] MEDS ORDERED: DIAZEPAM 5 MG TABLET ONE (21:41)
--- NOTE | 2019-05-06 22:41 | RAD REPORT ---
EXAM DESCRIPTION: Jesus Single View05/06/2019 9:06 pm CLINICAL HISTORY: Chest pain COMPARISON: March 2019 FINDINGS: Late subacute left rib fractures are noted. A couple are moderately displaced. Lungs appear clear of acute infiltrate. The heart is normal size
--- NOTE | 2019-05-06 23:04 | ER ---
Nurse's Notes [facility] Name: Ila Pérez Age: 53 yrs Sex: Female : 1965 Arrival Date: 05/06/2019 Time: 19:48 Bed 8 Private MD: Axel Medina Diagnosis: Weakness;Hyperglycemia, unspecified;Dehydration Presentation: 05/06 19:53 Presenting complaint: Patient states: I have been having weakness and dizziness as well la1 as diarrhea for the last few days. Transition of care: patient was not received from another setting of care. Onset of symptoms was May 06, 2019. Risk Assessment: Do you want to hurt yourself or someone else? Patient reports no desire to harm self or others. Initial Sepsis Screen: Does the patient meet any 2 criteria? Does the patient have a suspected source of infection? No. Patient's initial sepsis screen is negative. Care prior to arrival: None. 19:53 Method Of Arrival: Ambulatory la1 19:53 Acuity: DEVONTE 2 la1 Triage Assessment: 20:00 General: Appears uncomfortable, obese, Behavior is calm, cooperative, appropriate for fc age. Pain: Complains of pain in entire body Pain currently is 8 out of 10 on a pain scale. Quality of pain is described as aching, Pain began 2-3 days ago. Is continuous. EENT: No deficits noted. Neuro: Level of Consciousness is awake, alert, obeys commands, Oriented to person, place, time, situation, Appropriate for age Tip Fixer are weak bilaterally Moves all extremities. Full function Weakness Speech is normal, Facial symmetry appears normal, Reports weakness. Cardiovascular: Heart tones S1 S2 Capillary refill < 3 seconds Rhythm is regular Chest pain is denied. Respiratory: Airway is patent Trachea midline Respiratory effort is even, unlabored, Respiratory pattern is regular, symmetrical, Breath sounds are clear bilaterally. GI: Abdomen is round obese, Bowel sounds present X 4 quads. Abd is soft and non tender X 4 quads. Reports nausea. : No deficits noted. Derm: Skin is pink, warm \T\ dry. Musculoskeletal: Circulation, motion, and sensation intact. Capillary refill < 3 seconds, Range of motion: intact in all extremities. Historical: - Allergies: 19:54 Gluten Protein; la1 - PMHx: 19:54 Anxiety; Arthritis; Chronic pain; Depression; Diabetes - IDDM; Esophagitis; la1 Fibromyalgia; Gastroparesis; GERD; heart disease; High Cholesterol; Hypertension; Myocardial infarction; neuropathy; raynaud's; sleep disorder; Tachycardia; TBI; - PSHx: 23:08 None; rv - Immunization history:: Adult Immunizations up to date. - Social history:: Smoking status: Patient uses tobacco products, smokes one-half pack cigarettes per day. - Ebola Screening: : No symptoms or risks identified at this time. - Family history:: not pertinent. - Hospitalizations: : No recent hospitalization is reported. Screenin:16 Abuse screen: Denies threats or abuse. Nutritional screening: No deficits noted. ea Tuberculosis screening: No symptoms or risk factors identified. Fall Risk IV access (20 points). Assessment: 20:20 Reassessment: No changes from previously documented assessment. Patient and/or family fc updated on plan of care and expected duration. Pain level reassessed. Patient is alert, oriented x 3, equal unlabored respirations, skin warm/dry/pink. see triage assessment. 21:15 Reassessment: Patient and/or family updated on plan of care and expected duration. Pain ea level reassessed. Patient is alert, oriented x 3, equal unlabored respirations, skin warm/dry/pink. Awaiting on lab results. 21:47 Reassessment:. ea 22:08 Reassessment: able to ambulate from exam room to the restroom without complaints. rv Patient states feeling better. 22:57 Reassessment: Patient and/or family updated on plan of care and expected duration. Pain ea level reassessed. Patient is alert, oriented x 3, equal unlabored respirations, skin warm/dry/pink. Patient states feeling better. 23:08 Reassessment: Patient and/or family updated on plan of care and expected duration. Pain ea level reassessed. Patient is alert, oriented x 3, equal unlabored respirations, skin warm/dry/pink. Discharge instruction given to patient, verbalized the understanding of instruction Patient states feeling better. Vital Signs: 19:54 BP 142 / 59; Pulse 113; Resp 16; Temp 98.4; Pulse Ox 92% on R/A; Weight 78.47 kg; la1 Height 5 ft. 1 in. (154.94 cm); 21:30 BP 129 / 56; Pulse 96; Resp 18; Temp 97.6(O); Pulse Ox 100% on R/A; ea 21:47 BP 129 / 56; Pulse 97; Resp 15; Pulse Ox 100% on R/A; ea 22:57 BP 153 / 74; Pulse 90; Resp 18; Temp 98; Pulse Ox 100% ; ea 19:54 Body Mass Index 32.69 (78.47 kg, 154.94 cm) la1 ED Course: 19:48 Patient arrived in ED. mr 19:48 Axel Medina DO is Private Physician. mr 19:53 Chuy Cox MD is Attending Physician. rn 19:53 Triage completed. la1 19:54 Arm band placed on. la1 20:10 Initial lab(s) drawn, by me, sent to lab. Inserted 18 gauge 10 cm midline to right fc upper basilic vein on first attempt. Line with good blood return and flushes well. 20:16 Patient has correct armband on for positive identification. Placed in gown. Bed in low ea position. Call light in reach. Side rails up X2. 20:44 Notified ED physician of a critical lab result(s). glucose of 523. fc 21:05 Saúl Zamora, MARTÍNEZ is Primary Nurse. rv 21:07 XRAY Chest (1 view) In Process Unspecified. EDMS 23:07 No provider procedures requiring assistance completed. IV discontinued, intact, rv bleeding controlled, No redness/swelling at site. Pressure dressing applied. Administered Medications: 20:12 Drug: NS 0.9% 1000 ml Route: IV; Rate: 1000 ml; Site: right upper arm; ea 22:08 Follow up: IV Status: Completed infusion; IV Intake: 1000ml rv 21:10 Drug: Insulin Regular Human 10 units {Co-Signature: latonya (Aristides Mukherjee RN).} Route: IVP; rv Site: right upper arm; 22:07 Follow up: Response: Blood sugar is lowered rv 21:10 Drug: NS 0.9% 1000 ml Route: IV; Rate: 1000 ml; Site: right upper arm; rv 22:08 Follow up: IV Status: Completed infusion; IV Intake: 1000ml rv 21:11 Drug: Insulin Regular Human 10 units {Co-Signature: latonya (Aristides Mukherjee RN).} Route: Sub-Q; rv Site: right lower abdomen; 22:08 Follow up: Response: Blood sugar is lowered rv 21:41 Drug: Valium 5 mg Route: PO; rv 23:07 Follow up: Response: No adverse reaction; Marked relief of symptoms rv Point of Care Testing: Blood Glucose: 19:54 Blood Glucose: High (>450 mg/dL); la1 21:46 Blood Glucose: 384 mg/dL; rv 22:55 Blood Glucose: 193 mg/dL; ede Ranges: Intake: 22:08 IV: 1000ml; Total: 1000ml. rv 22:08 IV: 1000ml; Total: 2000ml. rv Outcome: 23:02 Discharge ordered by . rn 23:07 Discharged to home ambulatory, with family. rv 23:07 Condition: good 23:07 Discharge instructions given to patient, family, Instructed on discharge instructions, follow up and referral plans. Demonstrated understanding of instructions, follow-up care. 23:08 Patient left the ED. ea Signatures: Dispatcher [employer] EDWA EliasCatalina mr Nora Morales, RN Chuy Christianson MD MD rn Attema, Aristides, RN RN la1 Delmis Rsoales RN Saúl De Jesus ea, RN MARTÍNEZ hanks Corrections: (The following items were deleted from the chart) 21:38 21:30 BP 129 / 56; Pulse 96bpm; Pulse Ox 100% RA; ede mera
--- NOTE | 2019-05-06 23:05 | EDPHYS ---
Physician Documentation [facility] Name: Ila Pérez Age: 53 yrs Sex: Female : 1965 Arrival Date: 05/06/2019 Time: 19:48 Bed 8 Private MD: Axel Medina ED Physician Chuy Cox HPI: 05/06 20:02 This 53 yrs old Female presents to ER via Ambulatory with complaints of rn Weakness, Dizziness. 20:02 This 53 yrs old Female presents to ER via Ambulatory with complaints of rn Weakness, Dizziness. 20:02 This 53 yrs old Female presents to ER via Ambulatory with complaints of rn Weakness, Dizziness. 20:03 Reports generalized weakness and lightheadedness, unknown onset, reports diarrhea, rn non-bloody, and not making as much urine lately. Had blood sugar in 400s today, non insulin. Denies headache/trauma/focal neuro deficit. 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 No vomiting. No chest pain. Reports smokes, and has had intermittent sob since breaking ribs a few months ago. No hemoptysis. . Historical: - Allergies: 19:54 Gluten Protein; la1 - PMHx: 19:54 Anxiety; Arthritis; Chronic pain; Depression; Diabetes - IDDM; Esophagitis; la1 Fibromyalgia; Gastroparesis; GERD; heart disease; High Cholesterol; Hypertension; Myocardial infarction; neuropathy; raynaud's; sleep disorder; Tachycardia; TBI; - PSHx: 23:08 None; rv - Immunization history:: Adult Immunizations up to date. - Social history:: Smoking status: Patient uses tobacco products, smokes one-half pack cigarettes per day. - Ebola Screening: : No symptoms or risks identified at this time. - Family history:: not pertinent. - Hospitalizations: : No recent hospitalization is reported. ROS: 20:05 Constitutional: Negative for fever, chills, and weight loss, Eyes: Negative for injury, rn pain, redness, and discharge, Neck: Negative for injury, pain, and swelling, Cardiovascular: Negative for chest pain, palpitations, and edema, Respiratory: Negative for wheezing Abdomen/GI: Negative for abdominal pain, nausea, vomiting, and constipation, MS/Extremity: Negative for injury and deformity, Skin: Negative for injury, rash, and discoloration, Neuro: Negative for headache, numbness, tingling, and seizure. Exam: 20:05 Constitutional: This is a well developed, well nourished patient who is awake, alert, rn and in no acute distress. Flat affect. Sitting in bed with legs crossed, appears comfortable. Head/Face: Normocephalic, atraumatic. Eyes: Pupils equal round and reactive to light, extra-ocular motions intact. Lids and lashes normal. Conjunctiva and sclera are non-icteric and not injected. Cornea within normal limits. Periorbital areas with no swelling, redness, or edema. ENT: Dry MM Neck: Trachea midline, no thyromegaly or masses palpated, and no cervical lymphadenopathy. Supple, full range of motion without nuchal rigidity, or vertebral point tenderness. No Meningismus. Cardiovascular: Tachycardic, regular Respiratory: No increased work of breathing, no retractions or nasal flaring. Speaking full sentences Abdomen/GI: soft, non-tender MS/ Extremity: Pulses equal, no cyanosis. Neurovascular intact. Full, normal range of motion. Equal circumference. Neuro: Awake and alert, GCS 15, oriented to person, place, time, and situation. Cranial nerves II-XII grossly intact. Motor strength 5/5 in all extremities. Sensory grossly intact. Cerebellar exam normal. Vital Signs: 19:54 BP 142 / 59; Pulse 113; Resp 16; Temp 98.4; Pulse Ox 92% on R/A; Weight 78.47 kg; la1 Height 5 ft. 1 in. (154.94 cm); 21:30 BP 129 / 56; Pulse 96; Resp 18; Temp 97.6(O); Pulse Ox 100% on R/A; ea 21:47 BP 129 / 56; Pulse 97; Resp 15; Pulse Ox 100% on R/A; ea 22:57 BP 153 / 74; Pulse 90; Resp 18; Temp 98; Pulse Ox 100% ; ea 19:54 Body Mass Index 32.69 (78.47 kg, 154.94 cm) la1 MDM: 19:53 Patient medically screened. rn 21:38 ED course: Pt with normalization of vitals, hyperglycemic but no AG, no ketones in rn serum, still getting fluids, given insulin, goal is to lower glucose and dc home after hydration. Dizziness and vague symptoms likely due to hyperglycemia and dehydration. Pt requests benzos due to feelings of anxiousness. . 22:51 Differential Diagnosis hyperglycemia, dehydration. Data reviewed: vital signs, nurses rn notes, lab test result(s), EKG, radiologic studies, plain films. 22:57 Counseling: I had a detailed discussion with the patient and/or guardian regarding: the rn historical points, exam findings, and any diagnostic results supporting the discharge/admit diagnosis, lab results, radiology results, the need for outpatient follow up, to return to the emergency department if symptoms worsen or persist or if there are any questions or concerns that arise at home. Special discussion: I discussed with the patient/guardian in detail that at this point there is no indication for admission to the hospital. It is understood, however, that if the symptoms persist or worsen the patient needs to return immediately for re-evaluation. 05/06 20:02 Order name: CBC with Diff; Complete Time: 20:48 rn 05/06 20:02 Order name: Basic Metabolic Panel; Complete Time: 20:48 05/06 20:02 Order name: Ketone, Serum; Complete Time: 20:48 rn 05/06 20:02 Order name: LFT's; Complete Time: 20:48 05/06 20:02 Order name: Lipase; Complete Time: 20:48 rn 05/06 20:02 Order name: Urine Microscopic Only; Complete Time: 20:48 rn 05/06 20:05 Order name: XRAY Chest (1 view); Complete Time: 22:50 rn 05/06 20:36 Order name: Urine Dipstick--Ancillary (enter results); Complete Time: 20:48 ag4 05/06 20:38 Order name: Urine --Ancillary (enter results); Complete Time: 20:48 ag4 05/06 20:47 Order name: Urine Culture EDMS 05/06 20:02 Order name: IV Start; Complete Time: 20:12 rn 05/06 20:02 Order name: EKG; Complete Time: 20:03 rn 05/06 20:02 Order name: EKG - Nurse/Tech; Complete Time: 20:12 rn 05/06 20:02 Order name: Glucose Level; Complete Time: 20:12 rn 05/06 20:02 Order name: Urine Dipstick-Ancillary (obtain specimen); Complete Time: 20:37 rn Administered Medications: 20:12 Drug: NS 0.9% 1000 ml Route: IV; Rate: 1000 ml; Site: right upper arm; ea 22:08 Follow up: IV Status: Completed infusion; IV Intake: 1000ml rv 21:10 Drug: Insulin Regular Human 10 units {Co-Signature: latonya (Aristides Mukherjee RN).} Route: IVP; rv Site: right upper arm; 22:07 Follow up: Response: Blood sugar is lowered rv 21:10 Drug: NS 0.9% 1000 ml Route: IV; Rate: 1000 ml; Site: right upper arm; rv 22:08 Follow up: IV Status: Completed infusion; IV Intake: 1000ml rv 21:11 Drug: Insulin Regular Human 10 units {Co-Signature: latonya (Aristides Mukherjee RN).} Route: Sub-Q; rv Site: right lower abdomen; 22:08 Follow up: Response: Blood sugar is lowered rv 21:41 Drug: Valium 5 mg Route: PO; rv 23:07 Follow up: Response: No adverse reaction; Marked relief of symptoms rv Point of Care Testing: Blood Glucose: 19:54 Blood Glucose: High (>450 mg/dL); la1 21:46 Blood Glucose: 384 mg/dL; rv 22:55 Blood Glucose: 193 mg/dL; ea Ranges: Critical Glucose Levels:Adult <50 mg/dl or >400 mg/dl <40 mg/dl or >180 mg/dl Disposition: 05/06/19 23:02 Discharged to Home. Impression: Weakness, Hyperglycemia, unspecified, Dehydration. - Condition is Stable. - Discharge Instructions: Dehydration, Adult, Hyperglycemia, Weakness. - Medication Reconciliation Form, Thank You Letter, Antibiotic Education, Prescription Opioid Use form. - Follow up: Private Physician; When: As needed; Reason: Recheck today's complaints, Re-evaluation by your physician. - Problem is new. - Symptoms have improved. Signatures: Dispatcher [employer] EDMS Chuy Cox MD MD rn Attema, Lee RN Delmis Crooks RN RN ea Vicente, Ronaldo RN MARTÍNEZ hanks Corrections: (The following items were deleted from the chart) 23:08 23:02 05/06/2019 23:02 Discharged to Home. Impression: Weakness; Hyperglycemia, ea unspecified; Dehydration. Condition is Stable. Forms are Medication Reconciliation Form, Thank You Letter, Antibiotic Education, Prescription Opioid Use. Follow up: Private Physician; When: As needed; Reason: Recheck today's complaints, Re-evaluation by your physician. Problem is new. Symptoms have improved. rn
[2019-05-06 23:18] VITALS: O2SAT 100
[2019-05-06 23:21] VITALS: BP 153/74; TEMP 98
--- NOTE | 2019-05-07 08:07 | EKG ---
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
== END 2019-05-06 23:08 | disposition home or self-care (01) ==
LOC: ER 19:43
DX: R73.9 Hyperglycemia, unspecified (principal); E86.0 Dehydration; F17.210 Nicotine dependence, cigarettes, uncomplicated; Z91.018 Allergy to other foods
CPT/HCPCS: 96361; 93005; 87088; 85025; 87086; 80048; 36415; 82010; 81025; 82962 ×3; 80076; 83690; 71045; 96372; 96374; 99284; J7030 ×2; 81003; 81015

== ENCOUNTER 2019-05-20 22:03 | Emergency (ER) | payer OTHER ==
--- OUTSIDE RECORDS SUMMARY | 2019-05-20 22:06 | XMS REPORT | Clinical Summary ---
:1965 Author Organization [facility] Address [address] [place] [address] Care Team Providers Name Role Phone Fabián [...] 05/31/2018 Surgery Gastroenterology Boone Barahona UPPER ENDOSCOPY [facility] 05/31/2018 Hospital Encounter Gastroenterology Boone Barahona [facility] 05/24/2018 Hospital Encounter Pre-Admission Testing Resource, [facility] Preadmit Phone after 05/19/2018 Social History Tobacco Use Types Packs/Day Years [...] procedure are in the results section. after 05/19/2018 Results POC-Glucose meter (05/31/2018 2:40 PM CDT)Only the most recent of2 resultswithin the time period is included. POC-Glucose Meter 211 (H)Comment: TESTED AT 70 - 110 mg/dL [facility] [address] [facility] [id number] Specimen Blood Performing Organization Address City/State/Zipcode Phone Number [facility] [address] [place] [address] CENTER REPORT OF PROCEDURE - ENDOSCOPY URL (05/31/2018 2:37 PM CDT) Narrative Performed At after 05/19/2018 Insurance Payer Benefit Plan / Group Subscriber ID Type Phone Address [facility] - MEDICARE AARP/MEDICARE COMPLETE xxxxxxxxx [facility]GD CARE Advance Directives For more information, please contact:[address] [phone] Code Status Date Activated Date Inactivated Comments Full Code 06/25/2017 10:56 AM 06/25/2017 5:59 PM This code status was determined by: Patient
[2019-05-20] MEDS ORDERED: PROMETHAZINE 25 MG/ML VIAL ONE (22:42)
--- OUTSIDE RECORDS SUMMARY | 2019-05-20 23:03 | XMS REPORT | Continuity of Care Document ---
:1965 Author Organization [employer] Care Team Providers Name Role Phone [employer] Unavailable Unavailable Problems Problem Status Onset Classification Date Comments Source Date Reported PAIN IN Active 08/13/20 [facility] ABDOMEN/NAUSEA/TI Medical [facility] BDDC/GASTROESOPHA Active 07/24/20 [facility] GEAL REFLUX [address] [place] [address] DISEASE Center VOMITING Active 07/11/[address] Center GASTROPARESIS Active 07/11/[address] CHEST PAIN Active 04/02/[address] Center R/O ACS Active 04/02/[address] SOB/CHEST PAIN Active 03/06/[address] Center HYPERGLYCEMIA Active 03/06/20 [facility] DEHYDRATION [address] [place] [address] GASTROPARESIS Center NASEAU Active 01/11/[address] Center VOMITTING, Active 11/29/19 [facility] DIABETIC, HEART Medical PT Center N/V Active 11/29/[address] Center ACS R/O AND Active 11/17/19 [facility] PERSISTANT N/V [address] [place] [address] Center NAUSEA, VOMITTING Active 11/17/[address] Center MRSA1, 2 Active 10/23/19 Problem 11/19/2012 1nares 10/23/2012 [place] [id number] 2Problem added by Discern Expert. [facility] Center MRSA1, 2, 3, 4 Active 10/23/19 Problem 08/15/2013 - Nares [place] [id number] - [facility] Medical 3nares 10/23/2012 Center 4Problem added by Discern Expert. MRSA1, 2, 3, 4 Active 10/23/19 Problem 04/05/2013 - Nares [place] [id number] - [facility] Medical 3nares 10/23/2012 Center 4Problem added by Discern Expert. N/V DEHYDRATION Active 10/22/[address] Center [place] - Myocardial Resolved 02/16/20 Problem 08/15/2013 [facility] infarction [address] [place] [address] [place] - Myocardial Resolved 10/22/19 Problem 04/05/[address] DSU/ REFLUX Active 06/13/[address] MORBID OBESITY Active 01/19/[address] Acid reflux Resolved Problem 04/05/2013 [facility] Anemia Resolved Problem 04/05/2013 [facility] Anxiety Resolved Problem 04/05/2013 [facility] Arthritis Resolved Problem 04/05/2013 [facility] Depression Resolved Problem 04/05/2013 [facility] Diabetes mellitus Resolved Problem 04/05/[address] Edema of lower Resolved Problem 04/05/2013 [facility] Fibromyalgia Resolved Problem 04/05/2013 [facility] Hyperlipidemia Resolved Problem 04/05/2013 [facility] Hypertension Resolved Problem 04/05/2013 [facility] Acid reflux Resolved Problem 08/15/2013 [facility] Anemia Resolved Problem 08/15/2013 [facility] Anxiety Resolved Problem 08/15/2013 [facility] Arthritis Resolved Problem 08/15/2013 [facility] Depression Resolved Problem 08/15/2013 [facility] Diabetes mellitus Resolved Problem 08/15/[address] Edema of lower Resolved Problem 08/15/2013 [facility] Fibromyalgia Resolved Problem 08/15/2013 [facility] Gastric ulcer Resolved Problem 08/15/2013 [facility] Hyperlipidemia Resolved Problem 08/15/2013 [facility] Hypertension Resolved Problem 08/15/2013 [facility] Neuropathy Resolved Problem 08/15/2013 [facility] Gastric ulcer Resolved Problem 04/05/2013 [facility] Neuropathy Resolved Problem 04/05/2013 [facility] MORBID OBESITY Active [facility] NAUSEA WITH Active [facility] VOMITING [facility] CHEST PAIN NOS Active [facility] OTHER GENERAL Active [facility] SYMPTOMS [facility] Medications Medication Details Route Status Patient Ordering Order Source Instructions Provider Date Zofran 4 mg 4 mg=1 tab, PO, Active De La Garza 08/13/ [facility] oral tablet BID, # 10 tab, 0 2012 Medical Refill(s) Center Reglan 10 mg 10 mg=1 tab, PO, Active De La Garza 08/13/ [facility] oral tablet QID, # 40 tab, 0 2012 Medical Refill(s) Center IDS med 5 mg, 1 mL, Inactive Ruggiero 08/13/ [facility] Rate: 30 ml/hr, 2012 Medical Infuse over: 2 Center minutes, Route: IV, Total Volume: 1, Stop date: 08/13/13 16:00:00 NS (Bolus) IV 1,000 mL, Rate: Inactive De La Garza [facility] 1,000 mL 1,000 ml/hr, 2012 Medical Infuse over: 1 Center hr, Route: IV, Dosing Weight 81.818 kg, Total Volume: 1,000, Priority: STAT, Start date: 08/13/13 13:56:00, Duration: 1 doses or times, Stop date: 08/13/13 14:55:00, Bolus DoseBolus Dose Phenergan 25 mg, 1 mL, Inactive De La Garza [facility] Route: IVPB, 2012 Medical Drug form: INJ, Center ONCE, Dosing Weight 81.818, kg, Priority: STAT, Start date: 08/13/13 13:17:00, Stop date: 08/13/13 13:17:00Do not give IV push. (Same as: Phenergan) Zofran 4 mg, 2 mL, Inactive De La Garza [facility] Route: IVP, Drug 2012 Medical form: INJ, ONCE, Center Dosing Weight 81.818, kg, Priority: STAT, Start date: 08/13/13 12:41:00, Stop date: 08/13/13 12:41:00(Same as: Zofran) morphine 4 mg, 1 mL, Inactive De La Garza [facility] Sulfate Route: IVP, Drug 2012 Medical form: INJ, ONCE, Center Dosing Weight 81.818, kg, Priority: STAT, Start date: 08/13/13 12:40:00, Stop date: 08/13/13 12:40:00(Same as:MORPhine Sulfate) Sodium Chloride 1,000 mL, Rate: Inactive Wilfredcz [facility] 0.9% (Bolus) IV 1,000 ml/hr, 2012 Medical 1,000 mL Infuse over: 1 Center hr, Route: IV, Dosing Weight 81.818 kg, Total Volume: 1,000, Priority: STAT, Start date: 08/13/13 11:52:00, Duration: 1 doses or times, Stop date: 08/13/13 12:51:00, Bolus DoseBolus Dose normal saline 1,000 mL, Rate: Inactive [facility] 0.9% IV 1,000 500 ml/hr, 2012 Medical mL Infuse over: 2 Center hr, Route: IV, Dosing Weight 86.364 kg, Total Volume: 1,000, Start date: 07/14/13 14:02:00, Duration: 4 hr, Stop date: 07/14/13 18:01:00 Reglan 10 mg 10 mg, 1 tab, Inactive [facility] oral tablet Route: PO, Drug 2012 Medical form: TAB, Center TID-Before Meals, Dosing Weight 86.364, kg, Start date: 07/14/13 11:30:00, Duration: 30 day, Stop date: 08/13/13 7:30:00(Same as: Reglan) Take 30 min before meals Levemir 15 unit, 0.15 No Longer [facility] mL, Route: Active 2012 Medical SUB-Q, Drug Center form: INJ, BID, Dosing Weight 86.364, kg, Start date: 07/13/13 21:00:00, Duration: 30 day, Stop date: 08/12/13 9:00:00Same as Levemir "single patient use only" pneumococcal 0.5 ml, Route: No Longer SYSTEM [facility] 23-valent IM, Drug Form: Active 2012 Medical vaccine INJ, Start date: [place] 07/13/13 9:00:00, Stop date: 07/13/13 9:00:00 influenza virus 0.5 ml, Route: No Longer SYSTEM [facility] vaccine, IM, Drug Form: Active 2012 Medical inactivated SUSP, Start Center date: 07/13/13 9:00:00, Stop date: 07/13/13 9:00:00 lisinopril 20 mg, 1 tab, No Longer [facility] Route: PO, Drug Active 2012 Medical form: TAB, Center Daily, Dosing Weight 86.364, kg, Start date: 07/13/13 9:00:00, Duration: 30 day, Stop date: 08/11/13 9:00:00(Same as: Prinivil, Zestril) metoprolol 50 mg, Route: No Longer [place] [facility] tartrate PO, Drug form: Active 2012 Medical TAB, Daily, Center Dosing Weight 86.364, kg, Start date: 07/13/13 9:00:00, Duration: 30 day, Stop date: 08/11/13 9:00:00 Lyrica 150 mg, 2 cap, No Longer Adolfo [place] Route: PO, Drug Active 2012 Medical form: CAP, BID, Center Dosing Weight 86.364, kg, Start date: 07/13/13 9:00:00, Duration: 30 day, Stop date: 08/11/13 17:00:00(Same as: Lyrica) potassium 20 mEq, 1 tab, No Longer [facility] [place] chloride Route: PO, Drug Active 2012 Medical form: ERTAB, Center Daily, Dosing Weight 86.364, kg, Start date: 07/13/13 9:00:00, Duration: 30 day, Stop date: 08/11/13 9:00:00(Same as: K-Dur 20) "Do Not Crush" With food and full glass of water Effient 10 mg, 1 tab, No Longer [facility] Route: PO, Drug Active 2012 Medical form: TAB, Center Daily, Dosing Weight 86.364, kg, Start date: 07/13/13 9:00:00, Duration: 30 day, Stop date: 08/11/13 9:00:00Same as Effient For patients 60kg, without history of TIA/Ischemic stroke and without likely bypass surgery Protonix 40 mg, 1 tab, No Longer [facility] Route: PO, Drug Active 2012 Medical form: ECTAB, Center BID-Before Meals, Dosing Weight 86.364, kg, Start date: 07/13/13 9:00:00, Stop date: 08/11/13 16:30:00Tablet should not be chewed or crushed. (Same as: Protonix) meloxicam 7.5 mg, Route: No Longer [place] [facility] PO, Drug form: Active 2012 Medical TAB, BID, Dosing Center Weight 86.364, kg, Start date: 07/13/13 9:00:00, Duration: 30 day, Stop date: 08/11/13 17:00:00 magnesium oxide 400 mg, 1 tab, No Longer [facility] Route: PO, Drug Active 2012 Medical form: TAB, Center Daily, Dosing Weight 86.364, kg, Start date: 07/13/13 9:00:00, Duration: 30 day, Stop date: 08/11/13 9:00:00(Same as: Mag-Ox 400) Magnesium oxide [id number] elemental magnesium Dose=____mg magnesium oxide (___mg elemental magnesium) furosemide 40 40 mg, 1 tab, No Longer [facility] mg oral tablet Route: PO, Drug Active 2012 Medical form: TAB, Center Daily, Dosing Weight 86.364, kg, Start date: 07/13/13 9:00:00, Duration: 30 day, Stop date: 08/11/13 9:00:00(Same as: Lasix) May cause GI upset. Give with food or milk. ferrous sulfate 325 mg, 1 tab, No Longer [facility] Route: PO, Drug Active 2012 Medical form: ECTAB, Center TID, Dosing Weight 86.364, kg, Start date: 07/13/13 9:00:00, Duration: 30 day, Stop date: 08/11/13 17:00:00Give with food. "Do Not Crush" clonazepam 0.5 mg, 1 tab, No Longer [facility] Route: PO, Drug Active 2012 Medical form: TAB, TID, Center Dosing Weight 86.364, kg, Start date: 07/13/13 9:00:00, Duration: 30 day, Stop date: 08/11/13 17:00:00(Same As: Klonopin) Insulin regular 5 unit, 0.05 mL, No Longer [facility] Route: SUB-Q, Active 2012 Medical Drug [...] Reglan 10 mg, 2 mL, No Longer [facility] Route: IVP, Drug Active 2012 Medical form: INJ, Q6H, Center Dosing Weight 86.364, kg, Start date: 07/13/13 0:00:00, Duration: 30 day, Stop date: 08/11/13 18:00:00(Same as: Reglan) normal saline 1,000 mL, Rate: No Longer [facility] 0.9% IV 1,000 200 ml/hr, Active 2012 Medical mL Infuse over: 5 Center hr, Route: IV, Dosing Weight 86.364 kg, Total Volume: 1,000, Start date: 07/12/13 21:08:00, Duration: 3 doses or times, Stop date: 07/13/13 12:07:00 metoprolol 50 mg, 1 tab, No Longer [facility] tartrate Route: PO, Drug Active 2012 Medical form: TAB, Q12H, Center Dosing Weight 86.364, kg, Start date: 07/12/13 21:00:00, Duration: 30 day, Stop date: 08/11/13 9:00:00(Same as: Lopressor) Levemir 12 unit, 0.12 No Longer [facility] mL, Route: Active 2012 Medical SUB-Q, Drug Center form: INJ, BID, Dosing Weight 86.364, kg, Start date: 07/12/13 21:00:00, Duration: 30 day, Stop date: 08/11/13 9:00:00Same as Levemir "single patient use only" Cymbalta 120 mg, 2 cap, No Longer [facility] Route: PO, Drug Active 2012 Medical form: DRC, Center Bedtime, Dosing Weight 86.364, kg, Start date: 07/12/13 21:00:00, Duration: 30 day, Stop date: 08/10/13 21:00:00Non Formulary Drug (Same as: Cymbalta) (Do Not Crush) ProAir HFA 90 2 puff, Route: No Longer [place] [facility] mcg/inh INHALATION, Drug Active 2012 Medical inhalation Form: AERO/A, [place] aerosol with Dosing Weight adapter 86.364, kg, QID, PRN Shortness of breath, Start date: 07/12/13 20:09:00, Duration: 30 day, Stop date: 08/11/13 20:08:00Albutero l 90 microgram/inh 8gm HFA Same as: Ventolin, Proventil aspirin 81 mg 81 mg, 1 tab, No Longer [facility] tablet, enteric Route: PO, Drug Active 2012 Medical coated form: ECTAB, [place] Daily, Dosing Weight 86.364, kg, Start date: 07/12/13 20:00:00, Duration: 30 day, Stop date: 08/11/13 9:00:00Do not crush or chew. (Same As: Ecotrin) glucagon 1 mg, Route: IM, No Longer Adolfo [facility] Drug form: Active 2012 Medical PDR/INJ, PRN, [place] Dosing Weight 86.364, kg, PRN Blood Glucose Results, Start date: 07/12/13 18:26:00, Duration: 30 day, Stop date: 08/11/13 18:25:00 Dextrose 50% 12.5 gm, 25 mL, No Longer [facility] Syringe Route: IVP, Drug Active 2012 Medical Form: INJ, [place] Dosing Weight 86.364, kg, PRN, PRN Blood Glucose Results, Start date: 07/12/13 18:26:00, Duration: 30 day, Stop date: 08/11/13 18:25:00 insulin aspart 4 unit, 0.04 mL, No Longer [facility] Route: SUB-Q, Active 2012 Medical Drug form: SOLN, [place] TID-Before Meals, Dosing Weight 86.364, kg, PRN Blood Glucose Results, Start date: 07/12/13 18:26:00, Duration: 30 day, Stop date: 08/11/13 18:25:00Roll in palms of hands gently; Do not shake vigorously. (Same as: NovoLog) "single patient use only" Stable for 28 days at room temperature. Expires in days from Da te tramadol 50 mg 50 mg, 1 tab, No Longer [place] oral tablet Route: PO, Drug Active 2012 Medical form: TAB, Q4H, Center Dosing Weight 86.364, kg, PRN as needed for pain, Start date: 07/12/13 18:24:00, Duration: 30 day, Stop date: 08/11/13 18:23:00Not to exceed 400mg/day. (Same As: Ultram) acetaminophen-h 1 tab, Route: No Longer [facility] ydrocodone 325 PO, Drug Form: Active 2012 Medical mg-5 mg oral TAB, Dosing Center tablet Weight 86.364, kg, Q4H, PRN Pain, Start date: 07/12/13 18:23:00, Duration: 30 day, Stop date: 08/11/13 18:22:00(Same as: [place] 325/5) Do not exceed 4gm/day of acetaminophen. Flexeril 10 mg, 1 tab, No Longer [facility] Route: PO, Drug Active 2012 Medical form: TAB, TID, Center Dosing Weight 86.364, kg, PRN Spasm, Start date: 07/12/13 18:23:00, Duration: 30 day, Stop date: 08/11/13 18:22:00(Same As: Flexeril) benzonatate 100 mg, 1 cap, No Longer [facility] Route: PO, Drug Active 2012 Medical form: CAP, TID, Center Dosing Weight 86.364, kg, PRN as needed for cough, Start date: 07/12/13 18:23:00, Duration: 30 day, Stop date: 08/11/13 18:22:00(Same As: Oleksandr Francis) "Do Not Crush" Saline Flush 5 ml, Route: No Longer [facility] [place] 0.9% IVP, Drug Form: Active 2012 Medical INJ, Dosing Center Weight 86.364, kg, PRN, PRN Line Flush, Start date: 07/12/13 18:22:00, Duration: 30 day, Stop date: 08/11/13 18:21:00(Same as: BD Posiflush) ondansetron 4 mg, 2 mL, No Longer [facility] Route: IVP, Drug Active 2012 Medical form: INJ, Q8H, Center Dosing Weight 86.364, kg, PRN Nausea & Vomiting, Start date: 07/12/13 18:22:00, Duration: 30 day, Stop date: 08/11/13 18:21:00(Same as: Zofran) aspirin 81 mg 81 mg, 1 tab, Active [facility] tablet, enteric PO, Daily, 0 2012 Medical coated tab, Center Substitution Allowed, ECTAB Klor-Con M20 20 mEq, 1 tab, No Longer [facility] oral tablet, PO, Daily, 180 Active 2012 Medical extended tab, Center release Substitution Allowed, ERTAB furosemide 40 40 mg, 1 tab, No Longer [facility] mg oral tablet PO, Daily, 30 Active 2012 Medical tab, Center Substitution Allowed, TAB benzonatate 100 PO, TID, PRN, 1 Active [facility] mg oral capsule to 2 tabs, prn, 2012 Medical Substitution Center Allowed1 to 2 tabs metoprolol 50 mg, 1 tab, No Longer [facility] tartrate 50 mg PO, Daily, 180 Active 2012 Medical oral tablet tab, Center Substitution Allowed, TAB Reglan 10 mg, 2 mL, Inactive Clover Simmons [facility] Route: IVP, Drug 2012 Medical form: INJ, ONCE, Center Dosing Weight 86.364, kg, Priority: STAT, Start date: 07/12/13 12:12:00, Stop date: 07/12/13 12:12:00(Same as: Reglan) Zofran 4 mg, Route: Inactive [facility] 07/12[facility] IVP, Drug form: 2012 Medical INJ, ONCE, Center Dosing Weight 86.364, kg, Priority: STAT, Start date: 07/12/13 10:52:00, Stop date: 07/12/13 10:52:00 morphine 4 mg, Route: Inactive [facility] 07/12[facility] Sulfate IVP, Drug form: 2012 Medical [...] Stop date: 07/12/13 11:05:00, Bolus DoseBolus Dose [place] 5/325 1 tab, Route: Inactive Clover Simmons [...] ODT 8 mg, Route: PO, Inactive Tiara [facility] Drug form: 2012 Medical TABDIS, ONCE, Center Dosing Weight 86.364, kg, Priority: STAT, Start date: 07/12/13 6:56:00, Stop date: 07/12/13 6:56:00 Levemir 10 unit, 0.1 mL, Inactive Tiara [facility] Route: SUB-Q, 2012 Medical Drug form: INJ, Center ONCE, Dosing Weight 86.364, kg, Start date: 07/12/13 4:20:00, Stop date: 07/12/13 4:20:00Same as Levemir "single patient use only" Omnipaque 100 mL, Route: Inactive Tiara Fei 350mg/ml IVP, Drug Form: 2012 Medical SOLN, Dosing Center Weight 86.364, kg, ONCALL, STAT, Start date: 07/12/13 4:18:00, Duration: 1 doses or times, Dose=2.2ml/kg, Max [id number] -- "To be infused by Radiology Staff ONLY"Dose=2.2ml/ kg, Max [id number] -- "To be infused by Radiology Staff [...] mg, 1 tab, PO No Longer O[facility] [place] tablet, enteric Route: PO, Drug Active 2012 Medical coated form: ECTAB, Center Daily, Dosing Weight 90, kg, Start date: 04/03/13 9:00:00, Duration: 30 day, Stop date: 05/02/13 9:00:00 Effient 10 mg, 1 tab, PO No Longer Omidvar [facility] Route: PO, Drug Active 2012 Medical form: TAB, Center Daily, Dosing Weight 90, kg, Start date: 04/03/13 9:00:00, Duration: 30 day, Stop date: 05/02/13 9:00:00 Lyrica 150 mg, 2 cap, PO No Longer Omidvar [facility] Route: PO, Drug Active 2012 Medical form: CAP, BID, Center Dosing Weight 90, kg, Start date: 04/03/13 9:00:00, Duration: 30 day, Stop date: 05/02/13 17:00:00 Protonix 40 mg, 1 tab, PO No Longer Omidvar [facility] Route: PO, Drug Active 2012 Medical [...] mg, 1 tab, PO No Longer Omidvar [facility] Route: PO, Drug Active 2012 Medical form: TAB, BID, Center Dosing Weight 90, kg, Priority: Routine, Start date: 04/03/13 9:00:00, Duration: 30 day, Stop date: 05/02/13 17:00:00 lisinopril 20 mg, Route: PO No Longer Omidvar [facility] PO, Drug form: Active 2012 Medical TAB, Daily, Center Dosing Weight 90, kg, Start date: 04/03/13 9:00:00, Duration: 30 day, Stop date: 05/02/13 9:00:00 Levemir 12 unit, Route: SUB-Q No Longer Omidvar [facility] SUB-Q, BID, Active 2012 Medical Dosing Weight Center 90, kg, Start date: 04/03/13 9:00:00, Duration: 30 day, Stop date: 05/02/13 17:00:00 ferrous sulfate 325 mg, 1 tab, PO No Longer [facility] Route: PO, Drug Active 2012 Medical form: ECTAB, [place] TID, Dosing Weight 90, kg, Start date: [...] SUB-Q, Active 2012 Medical Drug form: SOLN, [place] TID-Before Meals, Dosing Weight 90, kg, Start [...] mg, 2 cap, PO No Longer Omidvar [facility] Route: PO, Drug Active 2012 Medical form: DRC, [place] Bedtime, Dosing Weight 90, kg, Start date: 04/02/13 23:30:00, Duration: 30 day, Stop date: 05/02/13 21:00:00 Zocor 40 mg, 1 tab, PO No Longer Omidvar [facility] Route: PO, Drug Active 2012 Medical form: TAB, Center Bedtime, Dosing Weight 90, kg, Start date: 04/02/13 21:00:00, Duration: 30 day, Stop date: 05/01/13 21:00:00 Cymbalta 60 mg, 1 cap, PO No Longer Omidvar [facility] Route: PO, Drug Active 2012 Medical form: DRC, Center Bedtime, Dosing Weight 90, kg, Start date: 04/02/13 21:00:00, Duration: 30 day, Stop date: 05/01/13 21:00:00 magnesium oxide 400 mg, 1 tab, PO No Longer [facility] [place] Route: PO, Drug Active 2012 Medical form: TAB, Center Daily, Dosing Weight 90, kg, Priority: NOW, Start date: 04/02/13 20:45:00, Duration: 30 day, Stop date: 05/02/13 9:00:00 Levemir 12 unit, 0.12 SUB-Q No Longer [facility] [place] mL, Route: Active 2012 Medical SUB-Q, Drug Center form: INJ, BID, Dosing Weight 90, kg, Start date: 04/02/13 20:45:00, Duration: 30 day, Stop date: 05/02/13 17:00:00 hydrALAZINE 10 mg, 0.5 mL, IVP No Longer Omidvar [facility] Route: IVP, Drug Active 2012 Medical form: INJ, Q4H, Center Dosing Weight 90, kg, PRN Hypertension, Start date: 04/02/13 20:37:00, Duration: 30 day, Stop date: 05/02/13 20:36:00 lisinopril 20 mg, 1 tab, PO No Longer Omidvar [facility] Route: PO, Drug Active 2012 Medical form: TAB, Center Daily, Dosing Weight 90, kg, Start date: 04/02/13 20:30:00, Duration: 30 day, Stop date: 05/02/13 9:00:00 metoprolol 12.5 mg, 1 ea, PO No Longer Omidvar [facility] tartrate Route: PO, Drug Active 2012 Medical form: TAB, BID, Center Dosing Weight 90, kg, Start date: 04/02/13 20:30:00, Duration: 30 day, Stop date: 05/02/13 17:00:00 insulin aspart 8 unit, 0.08 mL, SUB-Q No Longer Omidvar [facility] Route: SUB-Q, Active 2012 Medical Drug form: SOLN, Center TID-Before Meals, Dosing Weight 90, kg, PRN Blood Glucose Results, Start date: 04/02/13 20:30:00, Duration: 30 day, Stop date: 05/02/13 20:29:00 glucagon 1 mg, Route: IM, IM No Longer Omidvar [facility] Drug form: Active 2012 Medical PDR/INJ, PRN, Center Dosing Weight 90, kg, PRN Blood Glucose Results, Start date: 04/02/13 20:30:00, Duration: 30 day, Stop date: 05/02/13 20:29:00 Dextrose 50% 25 gm, 50 mL, IVP No Longer [facility] 04/03[facility] Syringe Route: IVP, Drug Active 2012 Medical Form: INJ, Center Dosing Weight 90, kg, PRN, PRN Blood Glucose Results, Start date: 04/02/13 20:30:00, Duration: 30 day, Stop date: 05/02/13 20:29:00 Insulin regular 8 unit, Route: SUB-Q No Longer Omidvar [facility] SUB-Q, Active 2012 Medical TID-Before Center Meals, Dosing Weight 90, kg, PRN Blood Glucose Results, Start date: 04/02/13 20:29:00, Duration: 30 day, Stop date: 05/02/13 20:28:00 glucagon 1 mg, Route: IM, IM No Longer [facility] 04/03[facility] PRN, Dosing Active 2012 Medical Weight 90, kg, Center PRN Blood Glucose Results, Start date: 04/02/13 20:29:00, Duration: 30 day, Stop date: 05/02/13 20:28:00 Dextrose 50% 50 mL, Route: IVP No Longer [facility] 04/03[facility] Syringe IVP, Dosing Active 2012 Medical Weight 90, kg, Center PRN, PRN Blood Glucose Results, Start date: 04/02/13 20:29:00, Duration: 30 day, Stop date: 05/02/13 20:28:00 Zofran 4 mg, 2 mL, IV No Longer Omidvar [facility] Route: IV, Drug Active 2012 Medical form: INJ, Q8H, Center Dosing Weight 90, kg, PRN Nausea, Start date: 04/02/13 20:29:00, Duration: 30 day, Stop date: 05/02/13 20:28:00 Maalox Advanced 30 mL, Route: PO No Longer Omidvar [facility] Regular PO, Drug Form: Active 2012 Medical Strength SUSP SUSP, Dosing Center Weight 90, kg, QID, PRN Indigestion, Start date: 04/02/13 20:28:00, Duration: 30 day, Stop date: 05/02/13 20:27:00 Flexeril 10 mg, 1 tab, PO No Longer Omidvar [facility] Route: PO, Drug Active 2012 Medical form: TAB, TID, Center Dosing Weight 90, kg, PRN Spasm, Start date: 04/02/13 20:22:00, Duration: 30 day, Stop date: 05/02/13 20:21:00 acetaminophen-h 1 tab, Route: PO No Longer idvar [facility] ydrocodone 325 PO, Drug Form: Active 2012 Medical mg-5 mg oral TAB, Dosing Center tablet Weight 90, kg, Q4H, PRN Pain, Start date: 04/02/13 20:22:00, Duration: 30 day, Stop date: 05/02/13 20:21:00 Phenergan 12.5 mg, 0.5 mL, IVPB No Longer Mitch 04[facility] Route: IVPB, Active 2012 Medical Drug form: INJ, Center ONCE, Dosing Weight 90, kg, Start date: 04/02/13 20:11:00, Stop date: 04/02/13 20:11:00 morphine 4 mg, 1 mL, IVP No Longer Mitch [facility] Sulfate Route: IVP, Drug Active 2012 Medical form: INJ, ONCE, Center Dosing Weight 90, kg, Start date: 04/02/13 20:10:00, Stop date: 04/02/13 20:10:00 Phenergan 12.5 mg, 0.5 mL, IVPB No Longer Zhang [facility] Route: IVPB, Active 2012 Medical Drug form: INJ, Center ONCE, Dosing Weight 90, kg, Priority: STAT, Start date: 04/02/13 17:11:00, Stop date: 04/02/13 17:11:00 Zofran 4 mg, 2 mL, IVP No Longer Zhang [facility] Route: IVP, Drug Active 2012 Medical form: INJ, ONCE, Center Dosing Weight 90, kg, Priority: STAT, Start date: 04/02/13 16:52:00, Stop date: 04/02/13 16:52:00 nitroglycerin 0.4 mg, 1 tab, SL No Longer Kiki [facility] Route: SL, Drug Active 2012 Medical form: TAB, Center Q5Min, Dosing Weight 90, kg, PRN Chest Pain, Priority: STAT, Start date: 04/02/13 16:31:00, Duration: 3 doses or times, Stop date: Limited # of times aspirin 325 mg, 1 tab, PO No Longer Kiki [facility] Route: PO, Drug Active 2012 Medical form: ECTAB, Center ONCE, Dosing Weight 90, kg, Priority: STAT, Start date: 04/02/13 16:31:00, Stop date: 04/02/13 16:31:00 morphine 4 mg, 1 mL, IVP No Longer Kiki [facility] Sulfate Route: IVP, Drug Active 2012 Medical form: INJ, ONCE, Center Dosing Weight 90, kg, Start date: 04/02/13 16:30:00, Stop date: 04/02/13 16:30:00 erythromycin 1 cap, PO, Q12H, PO Active Osu[place]wu [facility] 250 mg oral 14 cap, 2012 Medical enteric coated Substitution Center tablet Allowed, ECTAB GI cocktail 30 ml, Route: PO No Longer Osuagwu [facility] PO, Drug Form: Active 2012 Medical SUSP, Dosing Center Weight 90, kg, ONCE, Routine, Start date: 03/08/13 16:26:00, Stop date: 03/08/13 16:26:00 erythromycin 250 mg, 1 cap, PO No Longer Osuagwu [place] 250 mg oral Route: PO, Drug Active 2012 Medical enteric coated form: ECCAP, [place] tablet Q12H, Dosing Weight 90, kg, Start date: 03/08/13 12:00:00, Duration: 30 day, Stop date: 04/07/13 9:00:00 magnesium 2 gm, 50 mL, IVPB No Longer Osuagwu [facility] sulfate Route: IVPB, Active 2012 Medical Drug form: INJ, Center Q2H, Dosing Weight 90, kg, Total Dose=4 gm, Start date: 03/08/13 12:00:00, Duration: 2 doses or times, Stop date: 03/08/13 14:00:00, For Mg=1.5 - 1.7 mg/dLFor Mg=1.5 - 1.7 mg/dL insulin aspart 5 unit, 0.05 mL, SUB-Q No Longer [place] [facility] Route: SUB-Q, Active 2012 Medical Drug form: SOLN, [place] ONCE, Dosing Weight 90, kg, Start date: 03/08/13 3:17:00, Stop date: 03/08/13 3:17:00 Zocor 40 mg, 1 tab, PO No Longer Talon [facility] Route: PO, Drug Active 2012 Medical form: TAB, Center Bedtime, Dosing Weight 90, kg, Start date: 03/07/13 21:00:00, Duration: 30 day, Stop date: 04/05/13 21:00:00 Cymbalta 120 mg, 2 cap, PO No Longer Talon [facility] Route: PO, Drug Active 2012 Medical [...] unit, 0.1 mL, SUB-Q No Longer Talon [facility] Route: SUB-Q, Active 2012 Medical Drug form: SOLN, Center ONCE, Dosing Weight 90, kg, Start date: 03/07/13 19:16:00, Stop date: 03/07/13 19:16:00 Lyrica 150 mg, 2 cap, PO No Longer Talon [facility] Route: PO, Drug Active 2012 Medical form: CAP, BID, Center Dosing Weight 90, kg, Start date: 03/07/13 17:00:00, Duration: 30 day, Stop date: 04/06/13 9:00:00 Protonix 40 mg, 1 tab, PO No Longer Talon [facility] Route: PO, Drug Active 2012 Medical form: ECTAB, Center BID, Dosing Weight 90, kg, Start date: 03/07/13 17:00:00, Duration: 30 day, Stop date: 04/06/13 9:00:00 meloxicam 7.5 mg, 1 tab, PO No Longer Talon [facility] Route: PO, Drug Active 2012 Medical form: TAB, Center BID-Meals, Dosing Weight 90, kg, Start date: 03/07/13 17:00:00, Duration: 30 day, Stop date: 04/06/13 8:00:00 Flexeril 10 mg, 1 tab, PO No Longer Talon [facility] Route: PO, Drug Active 2012 Medical form: TAB, BID, Center Dosing Weight 90, kg, Start date: 03/07/13 17:00:00, Duration: 30 day, Stop date: 04/06/13 9:00:00 NovoLog FlexPen 6 unit, 0.06 mL, SUB-Q No Longer Osuagwu [facility] Route: SUB-Q, Active 2012 Medical Drug form: SOLN, Center TID-Before Meals, Start date: 03/07/13 16:30:00, Duration: 30 day, Stop date: 04/06/13 11:30:00 Humalog 6 unit, Route: SUB-Q No Longer Talon [facility] SUB-Q, Active 2012 Medical TID-Before Center Meals, Dosing Weight 90, kg, Start date: 03/07/13 16:30:00, Duration: 30 day, Stop date: 04/06/13 11:30:00 heparin 5,000 unit, 1 SUB-Q No Longer Talon [facility] mL, Route: Active 2012 Medical SUB-Q, Drug Center form: INJ, Q8H, Dosing Weight 90, kg, Start date: 03/07/13 16:00:00, Duration: 30 day, Stop date: 04/06/13 8:00:00 Effient 10 mg, 1 tab, PO No Longer Talon [facility] Route: PO, Drug Active 2012 Medical form: TAB, Center Daily, Dosing Weight 90, kg, Start date: 03/07/13 13:30:00, Duration: 30 day, Stop date: 04/06/13 9:00:00 magnesium oxide 400 mg, 1 tab, PO No Longer Talon [facility] Route: PO, Drug Active 2012 Medical form: TAB, Center Daily, Dosing Weight 90, kg, Start date: 03/07/13 13:30:00, Duration: 30 day, Stop date: 04/06/13 9:00:00 lisinopril 20 mg, 1 tab, PO No Longer Talon [facility] Route: PO, Drug Active 2012 Medical form: TAB, Center Daily, Dosing Weight 90, kg, Start date: 03/07/13 13:30:00, Duration: 30 day, Stop date: 04/06/13 9:00:00 Reglan 5 mg, 1 tab, PO No Longer Talon [facility] Route: PO, Drug Active 2012 Medical form: TAB, TID, Center Dosing Weight 90, kg, Start date: 03/07/13 13:00:00, Duration: 30 day, Stop date: 04/06/13 9:00:00 ferrous sulfate 325 mg, 1 tab, PO No Longer Talon [facility] Route: PO, Drug Active 2012 Medical form: ECTAB, Center TID, Dosing Weight 90, kg, Start date: 03/07/13 13:00:00, Duration: 30 day, Stop date: 04/06/13 9:00:00 clonazepam 0.5 mg, 1 tab, PO No Longer Talon [facility] Route: PO, Drug Active 2012 Medical form: TAB, TID, Center Dosing Weight 90, kg, Start date: 03/07/13 13:00:00, Duration: 30 day, Stop date: 04/06/13 9:00:00 NovoLog 6 unit, SUB-Q, SUB-Q No Longer [place] TID-Before Active 2012 Medical Meals, Center Substitution Allowed Levemir 12 unit, SUB-Q, SUB-Q Active [place] BID, 2012 Medical Substitution Center Allowed NS 1,000 mL 1,000 mL, Rate: IV No Longer Talon [place] 125 ml/hr, Active 2012 Medical Infuse over: 8 Center hr, Route: IV, Dosing Weight 90 kg, Total Volume: 1,000, Start date: 03/07/13 12:19:00, Duration: 30 day, Stop date: 04/06/13 12:18:00 insulin aspart 2 unit, 0.02 mL, SUB-Q No Longer Talon [facility] Route: SUB-Q, Active 2012 Medical Drug form: SOLN, Center TID-Before Meals, Dosing Weight 90, kg, PRN Blood Glucose Results, Start date: 03/07/13 11:55:00, Duration: 30 day, Stop date: 04/06/13 11:54:00 glucagon 1 mg, Route: IM, IM No Longer Talon [facility] Drug form: Active 2012 Medical PDR/INJ, PRN, Center Dosing Weight 90, kg, PRN Blood Glucose Results, Start date: 03/07/13 11:55:00, Duration: 30 day, Stop date: 04/06/13 11:54:00 Dextrose 50% 12.5 gm, 25 mL, IVP No Longer Talon [facility] Syringe Route: IVP, Drug Active 2012 Medical Form: INJ, Center Dosing Weight 90, kg, PRN, PRN Blood Glucose Results, Start date: 03/07/13 11:55:00, Duration: 30 day, Stop date: 04/06/13 11:54:00 Phenergan 12.5 mg, 0.5 mL, IVPB No Longer Talon [facility] Route: IVPB, Active 2012 Medical Drug form: INJ, Center Q4H, Dosing Weight 90, kg, PRN Nausea & Vomiting, Start date: 03/07/13 11:53:00, Duration: 30 day, Stop date: 04/06/13 11:52:00 albuterol 2.49 mg, 3 mL, NEB No Longer Talon [facility] 0.083% Route: NEB, Drug Active 2012 Medical inhalation form: SOLN, Center solution RQ4H, Dosing Weight 90, kg, PRN as needed for wheezing, Start date: 03/07/13 11:53:00, Duration: 30 day, Stop date: 04/06/13 11:52:00 Zofran 4 mg, 2 mL, IVP No Longer Talon [facility] Route: IVP, Drug Active 2012 Medical form: INJ, Q4H, Center Dosing Weight 90, kg, PRN Nausea, Start date: 03/07/13 11:53:00, Duration: 30 day, Stop date: 04/06/13 11:52:00 acetaminophen-h 1 tab, Route: PO No Longer Talon [facility] ydrocodone 325 PO, Drug Form: Active 2012 Medical mg-10 mg oral TAB, Dosing Center tablet Weight 90, kg, Q4H, PRN Pain Score 4-6, Start date: 03/07/13 11:51:00, Duration: 30 day, Stop date: 04/06/13 11:50:00 acetaminophen-h 1 tab, Route: PO No Longer Talon [facility] ydrocodone 325 PO, Drug Form: Active 2012 Medical mg-5 mg oral TAB, Dosing Center tablet Weight 90, kg, Q4H, PRN Pain Score 1-3, Start date: 03/07/13 11:51:00, Duration: 30 day, Stop date: 04/06/13 11:50:00 acetaminophen 650 mg, 2 tab, PO No Longer Talon [facility] Route: PO, Drug Active 2012 Medical form: TAB, Q4H, Center Dosing Weight 90, kg, PRN Pain 1-3/Temp > 100.4 F, Start date: 03/07/13 11:51:00, Duration: 30 day, Stop date: 04/06/13 11:50:00 morphine 2 mg, 1 mL, IVP No Longer Talon [facility] Sulfate Route: IVP, Drug Active 2012 Medical form: INJ, Q4H, Center Dosing Weight 90, kg, PRN Pain Score 7-10, Start date: 03/07/13 11:51:00, Duration: 30 day, Stop date: 04/06/13 11:50:00 docusate 100 mg, 1 cap, PO No Longer Talon [facility] Route: PO, Drug Active 2012 Medical form: CAP, BID, Center Dosing Weight 90, kg, PRN Constipation, Start date: 03/07/13 11:51:00, Duration: 30 day, Stop date: 04/06/13 11:50:00 Levemir 12 unit, 0.12 SUB-Q No Longer [place] [facility] mL, Route: Active 2012 Medical SUB-Q, Drug Center form: INJ, ONCE, Dosing Weight 90, kg, Start date: 03/07/13 6:10:00, Stop date: 03/07/13 6:10:00 lidocaine-epi 1 ml, Route: SUB-Q No Longer Kiki [facility] [id number] SUB-Q, Drug Active 2012 Medical Form: SOLN, Center Dosing Weight 90, kg, ONCE, STAT, Start date: 03/07/13 5:18:00, Stop date: 03/07/13 5:18:00 Insulin regular 99 mL, Rate: IVPB No Longer Kiki [facility] 100 unit + Start Insulin Active [...] gm, 25 mL, IVP No Longer Kiki [facility] Syringe Route: IVP, Drug Active 2012 Medical Form: INJ, Center Dosing Weight 90, kg, PRN, PRN Blood Glucose Results, Start date: 03/07/13 5:13:00, Duration: 30 day, Stop date: 04/06/13 5:12:00 NS (Bolus) IV 1,000 mL, Rate: IV No Longer Kiki [facility] 1,000 mL 1,000 ml/hr, 2012 Medical Infuse over: 1 Center hr, Route: IV, Dosing Weight 90 kg, Total Volume: 1,000, Priority: STAT, Start date: 03/07/13 2:36:00, Duration: 1 doses or times, Stop date: 03/07/13 3:35:00, Bolus DoseBolus Dose magnesium 2 gm, 50 mL, IVPB No Longer Kiki [place] sulfate Route: IVPB, 2012 Medical Drug form: INJ, Center ONCE, Dosing Weight 90, kg, Start date: 03/07/13 2:35:00, Stop date: 03/07/13 2:35:00 Insulin regular 10 unit, 0.1 mL, SUB-Q No Longer Kiki [facility] Route: SUB-Q, 2012 Medical Drug form: SOLN, Center ONCE, Dosing Weight 90, kg, Priority: STAT, Start date: 03/07/13 2:16:00, Stop date: 03/07/13 2:16:00 Reglan 10 mg, 2 mL, IVP No Longer Kiki [place] Route: IVP, Drug 2012 Medical form: INJ, ONCE, Center Dosing Weight 90, kg, Priority: STAT, Start date: 03/07/13 2:16:00, Stop date: 03/07/13 2:16:00 NS 1,000 mL 1,000 mL, Rate: IV No Longer Talon [place] 150 ml/hr, 2012 Medical Infuse over: 6.7 Center hr, Route: IV, Dosing Weight 90 kg, Total Volume: 1,000, Start date: 03/07/13 2:15:00, Duration: 30 day, Stop date: 04/06/13 2:14:00 droperidol 1.25 mg, Route: IVP No Longer Kiki [facility] IVP, ONCE, 2012 Medical Dosing Weight Center 90, kg, PRN Nausea & Vomiting, Start date: 03/07/13 0:48:00 D5W 1/2NS 1,000 1,000 mL, Rate: IV No Longer Kiki [place] mL 125 ml/hr, 2012 Medical Infuse over: 8 Center hr, Route: IV, Dosing Weight 90 kg, Total Volume: 1,000, Start date: 03/07/13 0:43:00, Duration: 30 day, Stop date: 04/06/13 0:42:00 Insulin regular 4 unit, 0.04 mL, SUB-Q No Longer Kiki [facility] Route: SUB-Q, Active 2012 Medical Drug form: SOLN, Center Sliding Scale, Dosing Weight 90, kg, PRN Blood Glucose Results, Start date: 03/07/13 0:01:00, Duration: 30 day, Stop date: 04/06/13 0:00:00 glucagon 1 mg, Route: IM, IM No Longer Kiki [facility] Drug form: Active 2012 Medical PDR/INJ, PRN, Center Dosing Weight 90, kg, PRN Blood Glucose Results, Start date: 03/07/13 0:01:00, Duration: 30 day, Stop date: 04/06/13 0:00:00 Dextrose 50% 25 gm, 50 mL, IVP No Longer Kiki [facility] Syringe Route: IVP, Drug Active 2012 Medical Form: INJ, Center Dosing Weight 90, kg, PRN, PRN Blood Glucose Results, Start date: 03/07/13 0:01:00, Duration: 30 day, Stop date: 04/06/13 0:00:00 NS 1,000 mL 1,000 mL, Rate: IV No Longer Kiki [facility] 125 ml/hr, Active 2012 Medical Infuse over: 8 Center hr, Route: IV, Dosing Weight 90 kg, Total Volume: 1,000, Start date: 03/06/13 23:21:00, Duration: 30 day, Stop date: 04/05/13 23:20:00 NS (Bolus) IV 1,000 mL, Rate: IV No Longer Kiki [facility] 1,000 mL 1,000 ml/hr, Active 2012 Medical Infuse over: 1 Center hr, Route: IV, Dosing Weight 90 kg, Total Volume: 1,000, Priority: STAT, Start date: 03/06/13 23:21:00, Duration: 1 doses or times, Stop date: 03/07/13 0:20:00, Bolus DoseBolus Dose [place] 5/325 1 tab, PO, Q6H, PO No Longer [facility] oral tablet PRN, 30 tab, Active 2012 Medical Substitution Center Allowed, Maintenance ferrous sulfate 325 mg, 1 tab, PO Active [place] [facility] 325 mg oral PO, TID, 30 tab, 2012 Medical enteric coated Substitution Center tablet Allowed, ECTAB acetaminophen-h 1 tab, PO, Q4H, PO Active [facility] ydrocodone 500 PRN, for pain, 2012 Medical mg-7.5 mg oral Substitution Center tablet Allowed, Maintenance, TAB meloxicam 7.5 7.5 mg, 1 tab, PO Active [place] [facility] mg oral tablet PO, BID, WITH 2012 Medical FOOD, 30 tab, Center Substitution Allowed, TABWITH FOOD Zocor 40 mg 40 mg, 1 tab, PO Active [place] [facility] oral tablet PO, Bedtime, 30 2012 Medical tab, Center Substitution Allowed, Maintenance ProAir HFA 90 Substitution Active [facility] mcg/inh Allowed, 2012 Medical inhalation Maintenance Center aerosol with adapter Flexeril 10 mg 10 mg, 1 tab, PO Active [place] [facility] oral tablet PO, TID, PRN, 30 2012 Medical tab, for spasm, Center Substitution Allowed, TAB Protonix 40 mg 40 mg, 1 tab, PO Active [place] [facility] oral enteric PO, BID, 30 tab, 2012 Medical coated tablet Substitution Center Allowed, ECTAB Lyrica 150 mg 150 mg, 1 cap, PO Active [place] [facility] oral capsule PO, BID, 90 cap, 2012 [facility] Substitution [place] Allowed, CAP Flagyl 500 mg 500 mg, 1 tab, PO No Longer [facility] oral tablet PO, Q6H, 30 tab, Active 2012 [facility] Substitution [place] Allowed metoclopramide 10 mg, 1 tab, PO Active [place] [facility] 10 mg oral PO, TID, 56 tab, 2012 Medical tablet Substitution Center Allowed, TAB NS (Bolus) IV 1,000 mL, Rate: IV No Longer Kiki [facility] 1,000 mL 1,000 ml/hr, Active 2012 Medical Infuse over: 1 Center hr, Route: IV, Dosing Weight 90 kg, Total Volume: 1,000, Priority: STAT, Start date: 03/06/13 21:27:00, Duration: 1 doses or times, Stop date: 03/06/13 22:26:00, Bolus DoseBolus Dose morphine 4 mg, 1 mL, IVP No Longer Kiki [facility] Sulfate Route: IVP, Drug Active 2012 Medical form: INJ, ONCE, Center Dosing Weight 90, kg, Start date: 03/06/13 21:27:00, Stop date: 03/06/13 21:27:00 Phenergan 12.5 mg, 0.5 mL, IVPB No Longer Kiki [facility] Route: IVPB, Active 2012 Medical Drug form: INJ, Center ONCE, Dosing Weight 90, kg, Priority: STAT, Start date: 03/06/13 21:26:00, Stop date: 03/06/13 21:26:00 ergocalciferol 50,000 IntlUnit, PO No Longer [place] [facility] 1 cap, Route: Active 2012 Medical PO, Drug form: Center CAP, qWeek, Dosing Weight 100, kg, Start date: 12/07/12 9:00:00, Duration: 30 day, Stop date: 01/04/13 9:00:00 erythromycin 250 mg, 1 tab, PO Active [facility] stearate 250 mg PO, Q6H, 56 tab, 2012 Medical oral tablet Substitution Center Allowed, TAB Protonix 40 mg 40 mg, 1 tab, PO Active [facility] oral enteric PO, Daily, 2012 Medical coated tablet tab, Center Substitution Allowed, ECTAB pravastatin 80 80 mg, 1 tab, PO Active [facility] mg oral tablet PO, Daily, 2012 Medical tab, Center Substitution Allowed, TAB insulin detemir 14 unit, 0.14 SUB-Q Active [facility] 100 units/mL mL, SUB-Q, 2012 Medical subcutaneous Bedtime, 100 mL, [place] solution Substitution Allowed, INJ insulin detemir 16 unit, 0.16 SUB-Q Active [facility] 100 units/mL mL, SUB-Q, 2012 Medical subcutaneous Daily, 100 mL, [place] solution Substitution Allowed, INJ Protonix 40 mg, Route: IVP No Longer Brando [facility] IVP, Drug form: Active 2012 Medical INJ, Daily, Center Dosing Weight 100, kg, Priority: NOW, Start date: 12/06/12 16:52:00, Duration: 30 day, Stop date: 01/05/13 9:00:00 insulin detemir 16 unit, 0.16 SUB-Q No Longer [place] mL, Route: Active 2012 Medical SUB-Q, Drug Center form: INJ, Daily, Dosing Weight 100, kg, Start date: 12/06/12 9:00:00, Stop date: 01/04/13 9:00:00 [place] 7.5/325 1 tab, Route: PO No Longer [...] 40 mEq, Route: IVPB No Longer Brando [facility] chloride IVPB, ONCE, Active 2012 Medical [...] gm, 50 mL, IVP No Longer Brando [place] Syringe Route: IVP, Drug Active 2012 Medical Form: INJ, Center Dosing Weight 100, kg, PRN, PRN Blood Glucose Results, Start date: 12/04/12 7:48:00, Duration: 30 day, Stop date: 01/03/13 7:47:00 glucagon 1 mg, Route: IM, IM No Longer Brando [place] Drug form: Active 2012 Medical PDR/INJ, PRN, Center Dosing Weight 100, kg, PRN Blood Glucose Results, Start date: 12/04/12 7:48:00, Duration: 30 day, Stop date: 01/03/13 7:47:00 insulin aspart 4 unit, 0.04 mL, SUB-Q No Longer [place] Route: SUB-Q, Active 2012 Medical Drug form: SOLN, Center Bedtime, Dosing Weight 100, kg, PRN Blood Glucose Results, Start date: 12/04/12 7:48:00, Duration: 30 day, Stop date: 01/03/13 7:47:00 Protonix 40 mg, Route: IV No Longer [place] IV, Drug form: Active 2012 Medical INJ, ONCE, Center Dosing Weight 100, kg, Start date: 12/04/12 3:12:00, Stop date: 12/04/12 3:12:00 potassium 20 mEq, 100 mL, IVPB No Longer Brando [facility] chloride Route: IVPB, Active 2012 Medical Q2H, Start date: [place] 12/03/12 8:00:00, Stop date: 12/03/12 11:00:00 potassium 40 mEq, Route: IV No Longer Brando [facility] chloride IV, ONCE, Dosing Active 2012 Medical Weight 100, kg, Center Start date: 12/03/12 7:02:00, Stop date: 12/03/12 7:02:00 NS 1,000 mL 1,000 mL, Rate: IV No Longer [place] [facility] 125 ml/hr, Active 2012 Medical Infuse over: 8 Center hr, Route: IV, kg, Total Volume: 1,000, Start date: 12/02/12 16:54:00, Duration: 30 day, Stop date: 01/01/13 16:53:00 NS (Bolus) IV 1,000 mL, Rate: IV No Longer [place] [facility] 1,000 mL 1,000 ml/hr, Active 2012 Medical Infuse over: 1 Center hr, Route: IV, kg, Total Volume: 1,000, Priority: STAT, Start date: 12/02/12 13:12:00, Duration: 1 doses or times, Stop date: 12/02/12 14:11:00, Bolus DoseBolus Dose NS (Bolus) IV 1,000 mL, Rate: IV No Longer Brando [facility] 1,000 mL 1,000 ml/hr, Active 2012 Medical Infuse over: 1 Center hr, Route: IV, kg, Total Volume: 1,000, Priority: STAT, Start date: 12/02/12 12:10:00, Duration: 1 doses or times, Stop date: 12/02/12 13:09:00, Bolus DoseBolus Dose insulin detemir 20 unit, 0.2 mL, SUB-Q No Longer [place] [facility] Route: SUB-Q, 2012 Medical Drug form: INJ, Center BID, Dosing Weight 100, kg, Start date: 12/02/12 9:00:00, Duration: 30 day, Stop date: 12/31/12 21:00:00 calcium 1,000 mg, 10 mL, IVPB No Longer [place] [facility] chloride + Route: IVPB, Active 2012 Medical Sodium Chloride ONCE, Start Center 0.9% IV 100 mL date: 12/02/12 5:08:00, Stop date: 12/02/12 5:08:00 ceftriaxone 1 gm, Route: IVPB No Longer [place] [facility] IVPB, Drug form: Active 2012 Medical PDR/INJ, Center [id number], Dosing Weight 100, kg, Start date: 12/02/12 5:00:00, Duration: 30 day, Stop date: 12/31/12 5:00:00 calcium 1,000 mg, Route: IVPB No Longer [place] [facility] gluconate IVPB, Drug form: Active 2012 Medical INJ, ONCE, Center Dosing Weight 100, kg, Start date: 12/02/12 5:00:00, Stop date: 12/02/12 5:00:00 Dextrose 50% 25 mL, Route: IVP No Longer [place] [facility] Syringe IVP, Dosing Active 2012 Medical Weight 100, kg, Center PRN, PRN Blood Glucose Results, Start date: 12/02/12 4:51:00, Duration: 30 day, Stop date: 01/01/13 4:50:00 Insulin regular 100 mL, Rate: IVPB No Longer [place] [facility] 100 unit + Start Insulin Active [...] 4 mg, Route: IVP No Longer [place] [facility] IVP, Drug form: Active 2012 Medical INJ, ONCE, Center Dosing Weight 100, kg, Priority: STAT, Start date: 12/02/12 4:47:00, Stop date: 12/02/12 4:47:00 normal saline 1,000 mL, Rate: IV No Longer [place] [facility] 0.9% IV 1,000 1,000 ml/hr, Active 2012 Medical mL Infuse over: 1 Center hr, Route: IV, kg, Total Volume: 1,000, Start date: 12/02/12 3:19:00, Duration: 1 doses or times, Stop date: 12/02/12 4:18:00 Insulin regular 6 unit, 0.06 mL, IV No Longer [place] [facility] Route: IV, Drug Active 2012 Medical form: [facility], Center ONCE, Dosing Weight 100, kg, Priority: STAT, Start date: 12/02/12 3:19:00, Stop date: 12/02/12 3:19:00 insulin aspart 3 unit, 0.03 mL, SUB-Q No Longer [place] [facility] Route: SUB-Q, Active 2012 Medical Drug form: SOLN, Center Bedtime, Dosing Weight 100, kg, PRN Blood Glucose Results, Start date: 12/01/12 13:23:00, Duration: 30 day, Stop date: 12/31/12 13:22:00 NS 1,000 mL 1,000 mL, Rate: IV No Longer [place] [facility] 150 ml/hr, Active 2012 Medical Infuse over: 6.7 Center hr, Route: IV, kg, Total Volume: 1,000, Priority: NOW, Start date: 12/01/12 13:10:00, Duration: 1 doses or times, Stop date: 12/01/12 19:51:00 Insulin regular 2 unit, 0.02 mL, SUB-Q No Longer [place] [facility] Route: SUB-Q, Active 2012 Medical Drug form: SOLN, Center Bedtime, Dosing Weight 100, kg, PRN Blood Glucose Results, Start date: 12/01/12 13:08:00, Duration: 30 day, Stop date: 12/31/12 13:07:00 insulin aspart 4 unit, 0.04 mL, SUB-Q No Longer [place] [facility] Route: SUB-Q, Active 2012 Medical Drug form: SOLN, Center TID-Before Meals, Dosing Weight 100, kg, PRN Blood Glucose Results, Start date: 12/01/12 13:08:00, Duration: 30 day, Stop date: 12/31/12 13:07:00 Dextrose 50% 25 gm, 50 mL, IVP No Longer [place] [facility] Syringe Route: IVP, Drug Active 2012 Medical Form: INJ, Center Dosing Weight 100, kg, PRN, PRN Blood Glucose Results, Start date: 12/01/12 13:08:00, Duration: 30 day, Stop date: 12/31/12 13:07:00 glucagon 1 mg, Route: IM, IM No Longer [place] [facility] Drug form: Active 2012 Medical PDR/INJ, [...] 16 unit, 0.16 SUB-Q No Longer Brando [facility] mL, Route: Active 2012 Medical SUB-Q, Drug Center form: INJ, Q12H, Dosing Weight 100, kg, Start date: 11/30/12 14:00:00, Duration: 30 day, Stop date: 12/30/12 9:00:00 Zofran 4 mg, 2 mL, IV No Longer [facility] Route: IV, Drug Active 2012 Medical form: INJ, Q6H, Center Dosing Weight 100, kg, PRN Nausea, Start date: 11/30/12 13:32:00, Duration: 30 day, Stop date: 12/30/12 13:31:00 insulin aspart 10 unit, 0.1 mL, SUB-Q No Longer [facility] Route: SUB-Q, Active 2012 Medical Drug form: SOLN, Center TID-Before Meals, Dosing Weight 100, kg, PRN Blood Glucose Results, Start date: 11/30/12 13:26:00, Duration: 30 day, Stop date: 12/30/12 13:25:00 Zofran 4 mg, 2 mL, IV No Longer Brando [facility] Route: IV, Drug Active 2012 Medical form: INJ, Q8H, Center Dosing Weight 100, kg, PRN Nausea, Start date: 11/30/12 11:58:00, Duration: 30 day, Stop date: 12/30/12 11:57:00 Zofran 4 mg, 2 mL, IVP No Longer [facility] Route: IVP, Drug Active 2012 Medical form: INJ, ONCE, Center Dosing Weight 100, kg, Priority: NOW, Start date: 11/30/12 11:57:00, Stop date: 11/30/12 11:57:00 potassium 2 pkt, Route: PO No Longer [facility] phosphate-sodiu PO, Drug Form: Active 2012 Medical m phosphate 250 PDR/REC, ONCE, Center mg-278 mg-164 Start date: mg oral powder 11/30/12 10:00:00, Stop date: 11/30/12 10:00:00 Dextrose 5% 1,000 mL, Rate: IV No Longer Randy [facility] with 0.45% NaCl 150 ml/hr, Active [...] heparin 5,000 unit, 1 SUB-Q No Longer [facility] mL, Route: Active 2012 Medical SUB-Q, Drug Center form: INJ, Q8H, Dosing Weight 100, kg, Start date: 11/30/12 8:30:00, Duration: 30 day, Stop date: 12/30/12 8:00:00 magnesium 2 gm, Route: IVPB No Longer [facility]i sulfate IVPB, Drug form: Active [...] unit, 0.1 mL, SUB-Q No Longer Lozada [facility] Route: SUB-Q, Active 2012 Medical Drug form: SOLN, Center TID-Before Meals, Dosing Weight 100, kg, PRN Blood Glucose Results, Start date: 11/30/12 7:57:00, Duration: 30 day, Stop date: 12/30/12 7:56:00 glucagon 1 mg, Route: IM, IM No Longer Lozada [facility] Drug form: Active 2012 Medical PDR/INJ, PRN, Center Dosing Weight 100, kg, PRN Blood Glucose Results, Start date: 11/30/12 7:57:00, Duration: 30 day, Stop date: 12/30/12 7:56:00 Dextrose 50% 25 gm, 50 mL, IVP No Longer Lozada [facility] Syringe Route: IVP, Drug Active 2012 Medical Form: INJ, Center Dosing Weight 100, kg, PRN, PRN Blood Glucose Results, Start date: 11/30/12 7:57:00, Duration: 30 day, Stop date: 12/30/12 7:56:00 1/2 NS 1,000 mL 1,000 mL, Rate: IV No Longer Simeon 11/30[facility] Fei 200 ml/hr, Active 2012 Medical Infuse over: 5 Center hr, Route: IV, kg, Total Volume: 1,000, Start date: 11/30/12 5:30:00, Duration: 30 day, Stop date: 12/30/12 5:29:00 heparin 5000 5,000 unit, 1 SUB-Q No Longer Hendrix 11/30[facility] units/mL mL, Route: Active 2012 Medical [...] mg, 1 tab, PO No Longer Aaron [facility] Route: PO, Drug Active 2012 Medical form: TAB, Center Bedtime, Dosing Weight 101.364, kg, Start date: 11/29/12 21:00:00, Duration: 30 day, Stop date: 12/28/12 21:00:00 Cymbalta 60 mg, 1 cap, PO No Longer Aaron [facility] Route: PO, Drug Active 2012 Medical form: DRC, Center Bedtime, Dosing Weight 101.364, kg, Start date: 11/29/12 21:00:00, Stop date: 12/28/12 21:00:00 ceftriaxone 1 gm, Route: IVPB No Longer Brando [place] IVPB, Drug form: Active 2012 Medical PDR/INJ, Center [id number], Dosing Weight 100, kg, Start date: 11/29/12 20:00:00, Duration: 30 day, Stop date: 12/28/12 20:00:00 hydrALAZINE 5 mg, 0.25 mL, IV No Longer Brando [facility] Route: IV, Drug Active 2012 Medical form: INJ, Q4H, Center Dosing Weight 100, kg, PRN Hypertension, Start date: 11/29/12 19:42:00, Duration: 30 day, Stop date: 12/29/12 19:41:00 Phenergan 12.5 mg, 0.5 mL, IVPB No Longer Brando [facility] Route: IVPB, Active 2012 Medical Drug form: INJ, Center Q4H, Dosing Weight 100, kg, PRN Nausea & Vomiting, Start date: 11/29/12 17:56:00, Duration: 30 day, Stop date: 12/29/12 17:55:00 clonazepam 0.5 mg, 1 tab, PO No Longer Hendrix [place] Route: PO, Drug Active 2012 Medical form: [...] 1,000 mL, Rate: IV No Longer Hendrix [facility] 0.9% IV 1,000 200 ml/hr, Active 2012 Medical mL Infuse over: 5 Center hr, Route: IV, kg, Total Volume: 1,000, Start date: 11/29/12 14:41:00, Stop date: 12/29/12 14:45:00 Insulin regular 99 mL, Rate: IV No Longer Nicho [facility] 100 unit + Start Insulin Active 2012 Medical Sodium Chloride Drip Per ICU Center 0.9% IV 99 mL protocol, Route: IV, kg, Total Volume: 100, Start date: 11/29/12 12:42:00, Stop date: 12/29/12 12:41:00 Insulin regular 100 mL, Rate: IVPB No Longer Nicho 11/29[facility] 100 unit + Start Insulin Active [...] gm, 25 mL, IVP No Longer Hendrix [facility] Syringe Route: IVP, Drug Active 2012 Medical Form: INJ, Center Dosing Weight 100, kg, PRN, PRN Blood Glucose Results, Start date: 11/29/12 12:39:00, Duration: 30 day, Stop date: 12/29/12 12:38:00 Zofran 4 mg, 2 mL, IV No Longer Nicho [place] Route: IV, Drug Active 2012 Medical form: INJ, Q4H, Center Dosing Weight 100, kg, PRN as needed for nausea/vomiting, Start date: 11/29/12 9:07:00, Duration: 30 day, Stop date: 12/29/12 9:06:00 NIFEdipine 90 mg, 1 tab, PO No Longer Exline [place] Route: PO, Drug Active 2012 Medical form: ERTAB, Center Daily, Dosing Weight 101.364, kg, Start date: 11/29/12 9:00:00, Duration: 30 day, Stop date: 12/28/12 9:00:00 clonazepam 0.5 mg, 1 tab, PO No Longer Hendrix [place] Route: PO, Drug Active 2012 Medical form: TAB, TID, Center Dosing Weight 101.364, kg, Start date: 11/29/12 9:00:00, Duration: 30 day, Stop date: 12/28/12 17:00:00 lisinopril 20 mg, 1 tab, PO No Longer Exline [facility] Route: PO, Drug Active 2012 Medical form: TAB, Q12H, Center Dosing Weight 101.364, kg, Start date: 11/29/12 9:00:00, Duration: 30 day, Stop date: 12/28/12 21:00:00 magnesium oxide 400 mg, 1 tab, PO No Longer Exline [facility] Route: PO, Drug Active 2012 Medical form: TAB, Center Daily, Dosing Weight 101.364, kg, Start date: 11/29/12 9:00:00, Duration: 30 day, Stop date: 12/28/12 9:00:00 Effient 10 mg, 1 tab, PO No Longer Aaron [facility] Route: PO, Drug Active 2012 Medical form: TAB, Center Daily, Dosing Weight 101.364, kg, Start date: 11/29/12 9:00:00, Duration: 30 day, Stop date: 12/28/12 9:00:00 Levemir 8 unit, 0.08 mL, SUB-Q No Longer Exline [facility] Route: SUB-Q, Active 2012 Medical Drug [...] mg, 2 mL, IVP No Longer Nicho [facility] Route: IVP, Drug Active 2012 Medical [...] Active 2012 Medical Drug form: INJ, Center [id number], Dosing Weight 101.364, kg, Start date: 11/29/12 4:00:00, Duration: 30 day, Stop date: 12/28/12 4:00:00 Phenergan 12.5 mg, 0.25 IVPB No Longer Aaron [facility] mL, Route: IVPB, Active 2012 Medical Drug form: INJ, Center Q4H, Dosing Weight 101.364, kg, Start date: 11/29/12 4:00:00, Duration: 30 day, Stop date: 12/29/12 0:00:00 tramadol 50 mg 50 mg, 1 tab, PO No Longer Exline [facility] oral tablet Route: PO, Drug Active [...] gm, 25 mL, IVP No Longer Aaron [facility] Syringe Route: IVP, Drug Active 2012 Medical Form: INJ, Center Dosing Weight 101.364, kg, PRN, PRN Blood Glucose Results, Start date: 11/29/12 3:26:00, Duration: 30 day, Stop date: 12/29/12 3:25:00 glucagon 1 mg, Route: IM, IM No Longer Hendrix [facility] Drug form: Active 2012 Medical PDR/INJ, PRN, Center Dosing Weight 101.364, kg, PRN Blood Glucose Results, Start date: 11/29/12 3:26:00, Duration: 30 day, Stop date: 12/29/12 3:25:00 acetaminophen 650 mg, 20.3 mL, PO No Longer Hendrix [facility] Route: PO, Drug Active 2012 Medical form: LIQ, Q4H, Center Dosing Weight 101.364, kg, PRN Pain 1-3/Temp > 100.4 F, Start date: 11/29/12 3:25:00, Duration: 30 day, Stop date: 12/29/12 3:24:00 docusate 100 mg, 1 cap, PO No Longer Hendrix [facility] Route: PO, Drug Active 2012 Medical form: CAP, BID, Center Dosing Weight 101.364, kg, PRN Constipation, Start date: 11/29/12 3:25:00, Duration: 30 day, Stop date: 12/29/12 3:24:00 D5W 1/2NS 1,000 1,000 mL, Rate: IV No Longer Aaron [facility] mL 75 ml/hr, Infuse Active 2012 Medical over: 13.3 hr, Center Route: IV, kg, Total Volume: 1,000, Start date: 11/29/12 3:21:00, Duration: 30 day, Stop date: 12/29/12 3:20:00 NS 0.45% IV 1,000 mL, Rate: IV No Longer Aaron [facility] 1000 mL 125 ml/hr, Active 2012 Medical Infuse over: 8 Center hr, Route: IV, Dosing Weight 101.364 kg, Total Volume: 1,000, Start date: 11/29/12 3:18:00, Duration: 30 day, Stop date: 12/29/12 3:17:00 Reglan 10 mg, 2 mL, IVP No Longer [facility] Route: IVP, Drug Active 2012 Medical form: INJ, ONCE, Center Dosing Weight 101.364, kg, Priority: STAT, Start date: 11/29/12 2:31:00, Stop date: 11/29/12 2:31:00 Zofran 8 mg, Route: IVP No Longer [facility] IVP, Drug form: Active 2012 Medical [...] mg, 0.5 mL, IVPB No Longer [place] 11/29[facility] Route: IVPB, Active 2012 Medical Drug form: INJ, Center ONCE, Dosing Weight 101.364, kg, Priority: STAT, Start date: 11/29/12 0:56:00, Stop date: 11/29/12 0:56:00 Zofran 4 mg, 2 mL, IVP No Longer Porter 11/29[facility] Fei Route: IVP, Drug Active 2012 Medical form: INJ, ONCE, Center Dosing Weight 101.364, kg, Priority: STAT, Start date: 11/28/12 23:49:00, Stop date: 11/28/12 23:49:00 Phenergan 12.5 mg, 0.5 mL, IVPB No Longer [place] 11/29[facility] Route: IVPB, Active 2012 Medical Drug form: INJ, Center ONCE, Dosing Weight 101.364, kg, Priority: STAT, Start date: 11/28/12 19:29:00, Stop date: 11/28/12 19:29:00 Zofran 4 mg, 2 mL, IVP No Longer [place] 11/29[facility] Route: IVP, Drug Active 2012 Medical [...] mg, 20 mL, IVPB No Longer Markus [facility] gluconate + Route: IVPB, Active 2012 Medical Sodium Chloride ONCE, Dosing Center 0.9% IV 80 mL Weight 103.21, kg, Start date: 11/17/12 11:02:00, Stop date: 11/17/12 11:02:00 magnesium 2 gm, 50 mL, IVPB No Longer Markus [facility] sulfate Route: IVPB, Active 2012 Medical Drug form: INJ, Center Q2H, Dosing Weight 103.21, kg, Total dose=4 gm, Start date: 11/17/12 10:00:00, Duration: 2 doses or times, Stop date: 11/17/12 12:00:00 aspirin 81 mg, 1 tab, PO No Longer Markus [facility] Route: PO, Drug Active 2012 Medical form: ECTAB, Center Daily, Dosing Weight 100, kg, Start date: 11/17/12 9:00:00, Duration: 30 day, Stop date: 12/16/12 9:00:00 simvastatin 40 mg, 1 tab, PO No Longer Markus [facility] Route: PO, Drug Active 2012 Medical form: TAB, Center Daily, Dosing Weight 100, kg, Start date: 11/17/12 9:00:00, Duration: 30 day, Stop date: 12/16/12 9:00:00 prasugrel 10 mg, 1 tab, PO No Longer Markus [facility] Route: PO, Drug Active 2012 Medical form: TAB, Center Daily, Dosing Weight 100, kg, Start date: 11/17/12 9:00:00, Duration: 30 day, Stop date: 12/16/12 9:00:00 NIFEdipine 90 mg, 1 tab, PO No Longer Markus [facility] Route: PO, Drug Active 2012 Medical form: ERTAB, Center Daily, Dosing Weight 100, kg, Start date: 11/17/12 9:00:00, Duration: 30 day, Stop date: 12/16/12 9:00:00 Toprol-XL 100 100 mg, 1 tab, PO No Longer Markus [facility] mg oral tablet, Route: PO, Drug Active 2012 Medical extended form: ERTAB, Center release Daily, Start date: 11/17/12 9:00:00, Duration: 30 day, Stop date: 12/16/12 9:00:00 magnesium oxide 400 mg, 1 tab, PO No Longer Markus [facility] Route: PO, Drug Active 2012 Medical form: TAB, Center Daily, Dosing Weight 100, kg, Start date: 11/17/12 9:00:00, Duration: 30 day, Stop date: 12/16/12 9:00:00 insulin detemir 15 unit, 0.15 SUB-Q No Longer Markus [facility] mL, Route: Active 2012 Medical SUB-Q, Drug Center form: INJ, Daily, Dosing Weight 100, kg, Start date: 11/17/12 9:00:00, Duration: 30 day, Stop date: 12/16/12 9:00:00 Zofran 8 mg, 4 mL, IV No Longer Markus [facility] Route: IV, Drug Active 2012 Medical form: INJ, Q4H, Center Dosing Weight 103.21, kg, PRN as needed for nausea/vomiting, Start date: 11/17/12 8:56:00, Duration: 30 day, Stop date: 12/17/12 8:55:00 Reglan 10 mg 10 mg, 1 tab, PO No Longer Markus [facility] oral tablet Route: PO, Drug Active 2012 Medical form: TAB, Center TID-Before Meals, Dosing Weight 100, kg, Start date: 11/17/12 7:30:00, Duration: 30 day, Stop date: 12/16/12 16:30:00 insulin aspart 4 unit, 0.04 mL, SUB-Q No Longer [facility] Route: SUB-Q, Active 2012 Medical Drug form: SOLN, Center TID-Before Meals, Dosing Weight 100, kg, Start date: 11/17/12 7:30:00, Duration: 30 day, Stop date: 12/16/12 16:30:00 Cymbalta 120 mg, 2 cap, PO No Longer [facility] Route: PO, Drug Active 2012 Medical form: DRC, Center Bedtime, Dosing Weight 100, kg, Start date: 11/16/12 21:00:00, Duration: 30 day, Stop date: 12/15/12 21:00:00 lisinopril 20 mg, 1 tab, PO No Longer [facility] Route: PO, Drug Active 2012 Medical form: TAB, Q12H, Center Dosing Weight 100, kg, Start date: 11/16/12 21:00:00, Duration: 30 day, Stop date: 12/16/12 9:00:00 insulin detemir 12 unit, 0.12 SUB-Q No Longer Markus [facility] mL, Route: Active 2012 Medical SUB-Q, Drug Center form: INJ, Bedtime, Dosing Weight 100, kg, Start date: 11/16/12 21:00:00, Duration: 30 day, Stop date: 12/15/12 21:00:00 clonazepam 0.5 mg, 1 tab, PO No Longer Markus [facility] Route: PO, Drug Active 2012 Medical form: TAB, TID, Center Dosing Weight 100, kg, Start date: 11/16/12 20:30:00, Duration: 30 day, Stop date: 12/16/12 17:00:00 Neutra-Phos 1 pkt, Route: PO No Longer Markus [facility] PO, Drug Form: Active 2012 Medical PDR/REC, Dosing Center Weight 100, kg, TID-Before Meals, Start date: 11/16/12 20:30:00, Duration: 30 day, Stop date: 12/16/12 16:30:00 enoxaparin 40 mg, 0.4 mL, SUB-Q No Longer Markus [facility] Route: SUB-Q, Active 2012 Medical Drug form: INJ, Center [id number], Dosing Weight 100, kg, Start date: 11/16/12 [...] unit, 0.1 mL, SUB-Q No Longer Markus [facility] Route: SUB-Q, Active 2012 Medical Drug form: SOLN, Center TID-Before Meals, Dosing Weight 100, kg, PRN Blood Glucose Results, Start date: 11/16/12 18:10:00, Duration: 30 day, Stop date: 12/16/12 18:09:00 Dextrose 50% 12.5 gm, 25 mL, IVP No Longer Markus [facility] Syringe Route: IVP, Drug Active 2012 Medical Form: INJ, Center Dosing Weight 100, kg, PRN, PRN Blood Glucose Results, Start date: 11/16/12 18:10:00, Duration: 30 day, Stop date: 12/16/12 18:09:00 glucagon 1 mg, Route: IM, IM No Longer Markus [facility] Drug form: Active 2012 Medical PDR/INJ, PRN, Center Dosing Weight 100, kg, PRN Blood Glucose Results, Start date: 11/16/12 18:10:00, Duration: 30 day, Stop date: 12/16/12 18:09:00 [place] 5/325 1 tab, Route: PO No Longer [place] oral tablet PO, Drug Form: Active 2012 Medical TAB, Dosing Center Weight 100, kg, Q6H, PRN as needed for pain, Start date: 11/16/12 18:07:00, Duration: 30 day, Stop date: 12/16/12 18:06:00 tramadol 50 mg 50 mg, 1 tab, PO No Longer Markus [facility] oral tablet Route: PO, Drug Active [...] 8 mg, 2 tab, PO No Longer [place] [facility] Route: PO, Drug Active 2012 Medical form: TABDIS, Center Q8H, Dosing Weight 100, kg, PRN Nausea & Vomiting, Start date: 11/16/12 18:01:00, Stop date: 12/16/12 18:00:00, nauea ondansetron 8 8 mg, 1 tab, PO, PO Active [place] [facility] mg oral tablet, Q8H, PRN, 2012 Medical disintegrating Dissolve under Center tongue, 10 tab, as needed for nausea/vomiting, Substitution AllowedDissolve under tongue Effient 10 mg 10 mg, 1 tab, PO Active Fei oral tablet PO, Daily, 30 2012 Medical tab, Center Substitution Allowed, TAB tramadol 50 mg 50 mg, 1 tab, PO Active [place] oral tablet PO, Q4H, PRN, 60 2012 Medical tab, for pain, Center Substitution Allowed, TAB clonazepam 0.5 0.5 mg, 1 tab, PO Active [place] mg oral tablet PO, TID, 2012 [...] Duration: 1 doses or times, Dose=2.2ml/kg, Max [id number] -- "To be infused by Radiology Staff ONLY"Dose=2.2ml/ kg, Max [id number] -- "To be infused by Radiology Staff [...] 1 mg, 0.5 mL, IVP No Longer [place] [facility] Route: IVP, Drug Active 2012 Medical [...] mg, 4 tab, CHEW No Longer Rehrer [facility] Route: CHEW, Active 2012 Medical Drug form: Center CHEWTAB, ONCE, Dosing Weight 100, kg, Priority: STAT, Start date: 11/16/12 13:29:00, Stop date: 11/16/12 13:29:00 Zofran 8 mg, 4 mL, IVP No Longer Rehrer [facility] Route: IVP, Drug Active 2012 Medical form: INJ, ONCE, Center Dosing Weight 100, kg, Priority: STAT, Start date: 11/16/12 13:17:00, Stop date: 11/16/12 13:17:00 Saline Flush 5 mL, Route: IVP No Longer Rehrer [facility] 0.9% IVP, Drug Form: Active 2012 Medical INJ, Dosing Center Weight 100, kg, Q8H, PRN Line Flush, Start date: 11/16/12 13:16:00, Duration: 30 day, Stop date: 12/16/12 13:15:00, Administer at least once every 8 hoursAdminister at least once every 8 hours Reglan 10 mg 10 mg, 1 tab, PO Active [facility] oral tablet PO, TID-Before 2012 Medical Meals, PRN, 42 Center tab, nausea, Substitution Allowed, TAB [place] 5/325 1 tab, PO, Q6H, PO Active [facility] oral tablet PRN, 10 tab, 2012 Medical Pain, Center Substitution Allowed, Maintenance, TAB ondansetron 8 8 mg, 1 tab, PO, PO Active [facility] 11/14[facility] [place] mg oral tablet, Q8H, PRN, 60 2012 Medical disintegrating tab, 1, 1, Center Nausea, Substitution Allowed, TABDIS insulin detemir 12 unit, 0.12 SUB-Q Active [facility] 100 units/mL mL, SUB-Q, 2012 Medical subcutaneous Bedtime, 4 mL, Center solution Substitution Allowed, INJ insulin detemir 15 unit, 0.15 SUB-Q Active [facility] [place] 100 units/mL mL, SUB-Q, 2012 Medical subcutaneous Daily, 5 mL, Center solution Substitution Allowed, INJ Zofran 4 mg, 1 tab, PO No Longer [facility] [place] Route: PO, Drug Active 2012 Medical form: TAB, Q8H, Center Dosing Weight 100, kg, Start date: 11/14/12 16:00:00, Duration: 30 day, Stop date: 12/14/12 8:00:00 Reglan 10 mg 10 mg, 1 tab, PO No Longer [facility] [place] oral tablet Route: PO, Drug Active 2012 Medical form: TAB, Center TID-Before Meals, Dosing Weight 100, kg, Start date: 11/14/12 11:30:00, Duration: 30 day, Stop date: 12/14/12 7:30:00 calcium 2,000 mg, 20 mL, IVPB No Longer [place] Fei gluconate + Route: IVPB, Active 2012 Medical Sodium Chloride Drug form: INJ, Center 0.9% IV 100 mL Q2H, Dosing Weight 100, kg, Total hpia=2263 mg, Start date: 11/14/12 8:00:00, Duration: 2 doses or times, Stop date: 11/14/12 10:00:00 magnesium 2 gm, 50 mL, IVPB No Longer [facility] sulfate Route: IVPB, Active 2012 Medical [...] 20 mEq, 100 mL, IVPB No Longer [facility] chloride Route: IVPB, Active 2012 Medical Drug form: INJ, Center ONCE, Dosing Weight 100, kg, Total dose=20mEq, Start date: 11/13/12 7:58:00, Duration: 1 doses or times, Stop date: 11/13/12 7:58:00, For K=3.5 - 3.9 mEq/LFor K=3.5 - 3.9 mEq/L calcium 1,000 mg, 10 mL, IVPB No Longer [facility] gluconate + Route: IVPB, Active 2012 Medical Sodium Chloride ONCE, Dosing Center 0.9% IV 50 mL Weight 100, kg, Start date: 11/13/12 7:56:00, Stop date: 11/13/12 7:56:00 Reglan 10 mg, 2 mL, IVP No Longer [facility] Route: IVP, Drug Active 2012 Medical form: INJ, Center Before Meals & Bedtime, Dosing Weight 100, kg, Start date: 11/12/12 16:30:00, Duration: 30 day, Stop date: 12/12/12 11:30:00 [place] 5/325 1 tab, Route: PO No Longer [place] oral tablet PO, Drug Form: Active jaida 2012 Medical TAB, Dosing Center Weight 100, kg, Q6H, PRN Pain, Start date: 11/12/12 16:07:00, Duration: 30 day, Stop date: 12/12/12 16:06:00 Reglan 10 mg, Route: IVP No Longer Aristides [facility] IVP, Q6H, Dosing Active 2012 Medical Weight 100, kg, Center PRN Nausea & Vomiting, Start date: 11/12/12 12:35:00, Duration: 30 day, Stop date: 12/12/12 12:34:00 insulin detemir 15 unit, Route: SUB-Q No Longer Ada [facility] SUB-Q, ONCE, Active 2012 Medical Dosing Weight Center 100, kg, Priority: NOW, Start date: 11/12/12 10:38:00, Stop date: 11/12/12 10:38:00 heparin 7,500 unit, 1.5 SUB-Q No Longer [place] [facility] mL, Route: Active 2012 Medical SUB-Q, Drug Center form: INJ, Q8H, Start date: 11/11/12 18:00:00, Duration: 30 day, Stop date: 12/11/12 16:00:00 Levemir FlexPen 15 unit, 0.15 SUB-Q No Longer [place] 11/11[facility] mL, Route: Active 2012 Medical SUB-Q, Drug Center form: INJ, Daily, Dosing Weight 100, kg, Start date: 11/11/12 10:00:00, Stop date: 12/11/12 9:00:00 magnesium 2 gm, 50 mL, IVPB No Longer [facility] sulfate Route: IVPB, Active 2012 Medical Drug form: INJ, Center ONCE, Dosing Weight 100, kg, Total dose=2 gm, Start date: 11/11/12 9:04:00, Duration: 1 doses or times, Stop date: 11/11/12 9:04:00 insulin detemir 20 unit, 0.2 mL, SUB-Q No Longer Ada [facility] Route: SUB-Q, Active 2012 Medical Drug form: INJ, Center Daily, Dosing Weight 100, kg, Start date: 11/11/12 9:00:00, Stop date: 12/10/12 9:00:00 Toradol 15 15 mg, 1 mL, IV No Longer [facility] 11/11[facility] mg/mL Route: IV, Drug 2012 Medical injectable form: INJ, ONCE, Center solution Dosing Weight 100, kg, Start date: 11/11/12 0:56:00, Stop date: 11/11/12 0:56:00 Zofran 4 mg, 2 mL, IV No Longer [facility] 11/11[facility] Route: IV, Drug Active 2012 Medical form: INJ, Q8H, Center Dosing Weight 100, kg, Start date: 11/11/12 0:00:00, Duration: 30 day, Stop date: 12/10/12 16:00:00 normal saline 1,000 mL, Rate: IV No Longer [facility] 0.9% IV 1,000 100 ml/hr, Active 2012 Medical mL Infuse over: 10 Center hr, Route: IV, kg, Total Volume: 1,000, Start date: 11/10/12 20:17:00, Duration: 30 day, Stop date: 12/10/12 20:16:00 Sodium Chloride 1,000 mL, Rate: IV No Longer [facility] [place] 0.9% (Bolus) IV 1,000 ml/hr, Active 2012 Medical 1,000 mL Infuse over: 1 Center hr, Route: IV, kg, Total Volume: 1,000, Priority: STAT, Start date: 11/10/12 20:17:00, Duration: 1 doses or times, Stop date: 11/10/12 21:16:00, Bolus DoseBolus Dose insulin detemir 10 unit, 0.1 mL, SUB-Q No Longer [place] [facility] Route: SUB-Q, Active 2012 Medical Drug form: INJ, Center ONCE, Dosing Weight 100, kg, Priority: NOW, Start date: 11/10/12 11:40:00, Stop date: 11/10/12 11:40:00 Zofran ODT 4 mg, 1 tab, PO No Longer Juanjo [place] Route: PO, Drug Active 2012 Medical form: TABDIS, Center Q8H, Dosing Weight 100, kg, PRN Nausea, Start date: 11/10/12 11:04:00, Duration: 30 day, Stop date: 12/10/12 11:03:00 Phenergan 12.5 mg, 0.5 mL, IM No Longer Ahmad [place] Route: IM, Drug Active 2012 Medical form: INJ, PRN, Center Dosing Weight 100, kg, PRN as needed for nausea/vomiting, Start date: 11/10/12 10:00:00, Duration: 30 day, Stop date: 12/10/12 10:59:00 insulin detemir 16 unit, 0.16 SUB-Q No Longer [place] mL, Route: Active 2012 Medical SUB-Q, Drug Center form: INJ, ONCE, Dosing Weight 100, kg, Start date: 11/10/12 0:20:00, Stop date: 11/10/12 0:20:00 NovoLog 6 unit, 0.06 mL, SUB-Q No Longer [place] [facility] Route: SUB-Q, Active 2012 Medical Drug form: SOLN, Center TID-Before Meals, Dosing Weight 100, kg, Start date: 11/09/12 16:30:00, Duration: 30 day, Stop date: 12/09/12 11:30:00 insulin aspart 7 unit, 0.07 mL, SUB-Q No Longer Loida [facility] Route: SUB-Q, Active 2012 Medical Drug form: SOLN, Center ONCE, Dosing Weight 100, kg, Start date: 11/09/12 13:24:00, Stop date: 11/09/12 13:24:00 insulin detemir 20 unit, 0.2 mL, SUB-Q No Longer Juanjo [facility] Route: SUB-Q, Active 2012 Medical Drug form: INJ, Center Daily, Dosing Weight 100, kg, Start date: 11/09/12 9:00:00, Duration: 30 day, Stop date: 12/08/12 9:00:00 morphine 1 mg, 0.5 mL, IV No Longer Chavez [facility] Sulfate Route: IV, Drug Active 2012 Medical form: INJ, ONCE, Center Dosing Weight 100, kg, Start date: 11/09/12 5:28:00, Stop date: 11/09/12 5:28:00 insulin detemir 12 unit, 0.12 SUB-Q No Longer Olejarski [facility] mL, Route: Active 2012 Medical SUB-Q, Drug Center form: INJ, Bedtime, Dosing Weight 100, kg, Start date: 11/08/12 21:00:00, Stop date: 12/07/12 21:00:00 morphine 2 mg, 1 mL, IVP No Longer Quintanilla [facility] Sulfate Route: IVP, Drug Active 2012 Medical form: INJ, ONCE, Center Dosing Weight 100, kg, Start date: 11/08/12 18:34:00, Stop date: 11/08/12 18:34:00 ampicillin + 1,500 mg, Route: IVPB No Longer Aristides [facility] Sodium Chloride IVPB, Drug form: Active 2012 Medical 0.9% IV 100 mL PDR/INJ, ABXQ6H, Center Dosing Weight 100, kg, Start date: 11/08/12 18:00:00, Duration: 30 day, Stop date: 12/08/12 12:00:00 ciprofloxacin 500 mg, 1 tab, PO No Longer Maggin [facility] Route: PO, Drug Active 2012 Medical form: TAB, Center [id number], Dosing Weight 100, kg, Start date: 11/08/12 17:00:00, Duration: 30 day, Stop date: 12/08/12 5:00:00 Rocephin 1 gm, Route: IVPB No Longer Janet [facility] IVPB, Drug form: Active 2012 Medical PDR/INJ, ONCE, Center Dosing Weight 100, kg, Start date: 11/08/12 13:11:00, Stop date: 11/08/12 13:11:00 insulin aspart 2 unit, 0.02 mL, SUB-Q No Longer Domingojapowerki [facility] Route: SUB-Q, Active 2012 Medical Drug form: SOLN, Center TID-Before Meals, Dosing Weight 100, kg, PRN Blood Glucose Results, Start date: 11/08/12 10:45:00, Duration: 30 day, Stop date: 12/08/12 10:44:00 insulin aspart 2 unit, 0.02 mL, SUB-Q No Longer Olejapowerki [facility] Route: SUB-Q, Active 2012 Medical Drug form: SOLN, Center TID-Before Meals, Dosing Weight 100, kg, PRN Blood Glucose Results, Start date: 11/07/12 18:47:00, Duration: 30 day, Stop date: 12/07/12 18:46:00 magnesium 2 gm, 50 mL, IVPB No Longer Maggin [facility] sulfate Route: IVPB, Active 2012 Medical Drug form: INJ, Center Q2H, Dosing Weight 100, kg, Start date: 11/07/12 8:00:00, Duration: 2 doses or times, Stop date: 11/07/12 10:00:00, For Mg=1.5 - 1.7 mg/dLFor Mg=1.5 - 1.7 mg/dL magnesium 2 gm, Route: IVPB No Longer Loida [facility] sulfate IVPB, Drug form: Active 2012 Medical SOLN, ONCE, Center Dosing Weight 100, kg, Start date: 11/07/12 7:42:00, Duration: 1 doses or times, Stop date: 11/07/12 7:42:00, For Mg=1.8 - 2 mg/dLFor Mg=1.8 - 2 mg/dL Protonix 40 mg, Route: IVP No Longer Quintanilla [facility] IVP, Drug form: Active 2012 Medical INJ, Before Center Breakfast, Dosing Weight 100, kg, Start date: 11/07/12 7:30:00, Duration: 30 day, Stop date: 12/06/12 7:30:00 insulin aspart 10 unit, 0.1 mL, SUB-Q No Longer Ahmad [facility] Route: SUB-Q, 2012 Medical Drug form: [facility] [place] ONCE, Dosing Weight 100, kg, Start date: 11/06/12 13:32:00, Stop date: 11/06/12 13:32:00 adenosine 84 mg, Route: IVP No Longer Ahmad [facility] IVP, ONCE, Active 2012 Medical Dosing Weight Center 100, kg, Priority: Routine, Start date: 11/06/12 10:20:00, Stop date: 11/06/12 10:20:00 Insulin regular 10 unit, 0.1 mL, SUB-Q No Longer Maggin [facility] Route: SUB-Q, 2012 Medical Drug form: [facility], [place] ONCE, Dosing Weight 100, kg, Start date: 11/06/12 9:47:00, Stop date: 11/06/12 9:47:00 insulin aspart 10 unit, 0.1 mL, SUB-Q No Longer Maggin [facility] Route: SUB-Q, 2012 Medical Drug form: [facility] ONCE, Dosing Weight 100, kg, Start date: 11/06/12 9:43:00, Stop date: 11/06/12 9:43:00 Lactated 1,000 mL, Rate: IV No Longer Maggin [facility] Ringers (Bolus) 1,000 ml/hr, Active 2012 [...] mg, 2 mL, IVP No Longer Aristides [facility] Route: IVP, Drug Active 2012 Medical form: INJ, Q6H, Center Dosing Weight 100, kg, PRN Nausea & Vomiting, Start date: 11/06/12 1:49:00, Duration: 30 day, Stop date: 12/06/12 1:48:00 Benadryl 25 mg, 0.5 mL, IV No Longer [place] [facility] Route: IV, Drug Active 2012 Medical form: INJ, Q4H, Center Dosing Weight 100, kg, PRN as needed for nausea/vomiting, Start date: 11/06/12 1:44:00, Duration: 30 day, Stop date: 12/06/12 1:43:00 Phenergan 12.5 mg, 0.5 mL, IVPB No Longer [place] [facility] Route: IVPB, Active 2012 Medical Drug form: INJ, Center Q6H, Dosing Weight 100, kg, PRN Nausea & Vomiting, Start date: 11/06/12 1:43:00, Stop date: 12/06/12 1:42:00 Benadryl 25 mg, 1 cap, PO No Longer Gee [facility] Route: PO, Drug Active 2012 Medical form: CAP, TID, Center Dosing Weight 100, kg, PRN Nausea, Start date: 11/06/12 0:31:00, Duration: 30 day, Stop date: 12/06/12 0:30:00 labetalol 20 mg, 4 mL, IVP No Longer [place] [facility] Route: IVP, Drug Active 2012 Medical form: INJ, ONCE, Center Dosing Weight 100, kg, Start date: 11/06/12 0:25:00, Stop date: 11/06/12 0:25:00 simvastatin 40 mg, 1 tab, PO No Longer [place] [facility] Route: PO, Drug Active 2012 Medical form: TAB, Center Bedtime, Dosing Weight 100, kg, Start date: 11/05/12 23:00:00, Duration: 30 day, Stop date: 12/05/12 21:00:00 lisinopril 20 mg, 1 tab, PO No Longer [place] [facility] Route: PO, Drug Active 2012 Medical form: TAB, Q12H, Center Dosing Weight 100, kg, Start date: 11/05/12 23:00:00, Duration: 30 day, Stop date: 12/05/12 21:00:00 insulin detemir 20 unit, 0.2 mL, SUB-Q No Longer Olejarski [facility] Route: SUB-Q, Active 2012 Medical Drug form: INJ, Center Q12H, Dosing Weight 100, kg, Start date: 11/05/12 23:00:00, Stop date: 12/05/12 21:00:00 magnesium oxide 400 mg, 1 tab, PO Active [place] 400 mg oral PO, Daily, 2012 Medical tablet tab, Center Substitution Allowed, TAB metoprolol 100 100 mg, 1 tab, PO Active [facility] mg oral tablet, PO, Daily, 2012 Medical extended tab, Center release Substitution Allowed NIFEdipine 90 90 mg, 1 tab, PO Active [facility] mg oral tablet, PO, Daily, 30 2012 Medical extended tab, Center release Substitution Allowed, ERTAB prasugrel 10 mg 10 mg, 1 tab, PO Active [facility] oral tablet PO, Daily, 2012 Medical tab, Center Substitution Allowed, TAB Cymbalta 60 mg, Daily, Active [facility] Substitution 2012 Medical Allowed Center tramadol 50 mg 50 mg, 1 tab, PO No Longer [place] [facility] oral tablet Route: PO, Drug Active 2012 Medical form: TAB, Q4H, Center Dosing Weight 100, kg, PRN For Pain, Start date: 11/05/12 22:39:00, Duration: 30 day, Stop date: 12/05/12 22:38:00 promethazine 25 mg, 1 tab, PO No Longer Gee [facility] Route: PO, Drug Active 2012 Medical [...] 5 ml, Route: IVP No Longer [place] 0.9% IVP, Drug Form: Active 2012 Medical INJ, Dosing Center Weight 104.545, kg, PRN, PRN Line Flush, Start date: 11/05/12 22:14:00, Duration: 30 day, Stop date: 12/05/12 23:13:00 Sodium Chloride 500 mL, Rate: IV No Longer [place] 0.9% (Bolus) IV 2,000 ml/hr, Active 2012 Medical 500 mL Infuse over: 15 Center minutes, Route: IV, kg, Total Volume: 500, Priority: STAT, Start date: 11/05/12 22:14:00, Duration: 1 doses or times, Stop date: 11/05/12 22:28:00 nitroglycerin 0.4 mg, 1 tab, SL No Longer Maggin [facility] SL Tab Route: SL, Drug Active 2012 Medical form: TAB, Center Q5Min, Dosing Weight 104.545, kg, PRN Chest Pain, Start date: 11/05/12 22:14:00, Duration: 3 doses or times, Stop date: Limited # of times Phenergan 12.5 mg, Route: IVPB No Longer Dilan [place] IVPB, ONCE, Active 2012 Medical Dosing Weight Center 104.545, kg, Priority: STAT, Start date: 11/05/12 22:05:00, Stop date: 11/05/12 22:05:00 Phenergan 12.5 mg, 0.5 mL, IVPB No Longer Dilan [facility] Route: IVPB, Active 2012 Medical Drug form: INJ, Center ONCE, Dosing Weight 104.545, kg, Priority: STAT, Start date: 11/05/12 21:08:00, Stop date: 11/05/12 21:08:00 carvedilol 12.5 mg, 1 tab, PO No Longer Dilan [facility] Route: PO, Drug Active 2012 Medical form: TAB, ONCE, Center Dosing Weight 104.545, kg, Start date: 11/05/12 19:20:00, Stop date: 11/05/12 19:20:00 Effient 10 mg, 1 tab, PO No Longer Dilan [facility] Route: PO, Drug Active 2012 Medical form: TAB, ONCE, Center Dosing Weight 104.545, kg, Start date: 11/05/12 19:16:00, Stop date: 11/05/12 19:16:00 ondansetron 4 mg, 2 mL, IVP No Longer Dilan [facility] Route: IVP, Drug Active 2012 Medical form: INJ, ONCE, Center Dosing Weight 104.545, kg, Priority: STAT, Start date: 11/05/12 19:14:00, Stop date: 11/05/12 19:14:00 aspirin 324 mg, 4 tab, PO No Longer Dilan [facility] Route: PO, Drug Active 2012 Medical [...] 100 units/mL SUB-Q, 2012 Medical subcutaneous TID-Before [place] solution Meals, 1 vial, 2, 2, Substitution [...] 40 40 mg, 1 tab, PO Active [place] 10/31/ [place] mg oral tablet PO, Bedtime, 30 2012 Medical tab, 1, 1, Center Substitution Allowed, Maintenance, TAB promethazine 25 25 mg, 1 tab, PO Active [place] mg oral tablet PO, Q6H, PRN, 60 2012 Medical tab, 1, 1, Center Nausea & Vomiting, Substitution Allowed, TAB prasugrel 10 mg 10 mg, 1 tab, PO Active [place] oral tablet PO, Daily, 30 2012 Medical tab, 1, 1, Center Substitution Allowed, TAB ondansetron 8 8 mg, 1 tab, PO, PO Active [place] 10/31/ [place] mg oral tablet, Q8H, PRN, 60 2012 Medical disintegrating tab, 1, 1, Center Nausea, Substitution Allowed, TABDIS NIFEdipine 90 90 mg, 1 tab, PO Active [place] 10/31/ [place] mg oral tablet, PO, Daily, 30 2012 Medical extended tab, 1, 1, Center release Substitution Allowed, ERTAB Toprol-XL 100 100 mg, 1 tab, PO Active [place] 10/31/ [facility] mg oral tablet, PO, Daily, 30 2012 Medical extended tab, 1, 1, Center release Substitution Allowed, ERTAB magnesium oxide 400 mg, 1 tab, PO Active [place] 400 mg oral PO, Daily, 30 2012 Medical tablet tab, 1, 1, Center Substitution Allowed, TAB lisinopril 20 20 mg, 1 tab, PO Active [place] [facility] mg oral tablet PO, Q12H, 60 2012 Medical tab, 1, 1, Center Substitution Allowed, TAB aspirin 81 mg 81 mg, 1 tab, PO Active [place] [facility] tablet, enteric PO, Daily, 30 2012 Medical coated tab, 1, 1, Center Substitution Allowed, ECTAB insulin aspart 6 unit, 0.06 mL, SUB-Q No Longer Manlapaz [place] Route: SUB-Q, Active 2012 Medical Drug form: NIRU, [place] TID-Before Meals, Dosing Weight 78.2, kg, PRN Blood Glucose Results, Start date: 10/31/12 8:40:00, Duration: 30 day, Stop date: 11/30/12 8:39:00 Phenergan 25 mg, 1 tab, PO No Longer Steward [place] Route: PO, Drug Active 2012 Medical form: [...] 50 mg, 1 tab, PO No Longer [place] Fei oral tablet Route: PO, Drug Active 2012 Medical form: TAB, Q4H, Center Dosing Weight 78.2, kg, PRN as needed for pain, Start date: 10/29/12 9:45:00, Duration: 30 day, Stop date: 11/28/12 9:44:00 Toradol 15 15 mg, 0.5 mL, IV No Longer [place] [facility] mg/mL Route: IV, Drug Active 2012 Medical injectable form: INJ, ONCE, Center solution Dosing Weight 78.2, kg, Start date: 10/29/12 6:54:00, Stop date: 10/29/12 6:54:00 Toradol 15 15 mg, 0.5 mL, IV No Longer [place] [facility] mg/mL Route: IV, Drug Active 2012 [...] SUB-Q, Active 2012 Medical Drug form: SOLN, [place] TID-Before Meals, Start date: 10/28/12 7:30:00, Stop [...] labetalol 20 mg, Route: IVP No Longer [place] [facility] IVP, Drug form: Active 2012 Medical INJ, ONCE, Center Dosing Weight 78.2, kg, Start date: 10/27/12 19:28:00, Stop date: 10/27/12 19:28:00 labetalol 20 mg, 4 mL, IVP No Longer [place] [facility] Route: IVP, Drug Active 2012 Medical form: INJ, ONCE, Center Dosing Weight 78.2, kg, Start date: 10/27/12 17:28:00, Stop date: 10/27/12 17:28:00 Benadryl 25 mg, 1 cap, PO No Longer [place] [facility] Route: PO, Drug Active 2012 Medical form: CAP, ONCE, Center Dosing Weight 78.2, kg, Start date: 10/27/12 17:28:00, Stop date: 10/27/12 17:28:00 Reglan 10 mg 10 mg, Route: PO No Longer [place] [facility] oral tablet PO, Drug form: Active 2012 Medical TAB, Before Center Meals & Bedtime, Dosing Weight 78.2, kg, Start date: 10/27/12 16:30:00, Duration: 30 day, Stop date: 11/26/12 11:30:00 Reglan 5 mg, 1 mL, IV No Longer [place] [facility] Route: IV, Drug Active 2012 Medical form: INJ, Q8H, Center Dosing Weight 78.2, kg, Start date: 10/27/12 16:00:00, Duration: 30 day, Stop date: 11/26/12 8:00:00 Reglan 5 mg, 1 mL, IV No Longer [place] [facility] Route: IV, Drug Active 2012 Medical form: INJ, Q8H, Center Dosing Weight 78.2, kg, PRN Nausea, Start date: 10/27/12 13:08:00, Duration: 30 day, Stop date: 11/26/12 13:07:00 lisinopril 20 mg, 1 tab, PO No Longer [place] [facility] Route: PO, Drug Active 2012 Medical form: TAB, Q12H, Center Dosing Weight 78.2, kg, Start date: 10/27/12 10:00:00, Duration: 30 day, Stop date: 11/26/12 9:00:00 ergocalciferol 50,000 IntlUnit, PO No Longer Manlapaz [facility] 1 cap, Route: Active 2012 Medical PO, Drug form: Center CAP, Daily, Dosing Weight 78.2, kg, Start date: 10/27/12 9:00:00, Duration: 4 day, Stop date: 10/30/12 9:00:00 magnesium oxide 400 mg, 1 tab, PO No Longer [place] [facility] Route: PO, Drug Active 2012 Medical form: TAB, Center Daily, Dosing Weight 78.2, kg, Start date: 10/27/12 9:00:00, Duration: 30 day, Stop date: 11/25/12 9:00:00 Toprol-XL 100 100 mg, 1 tab, PO No Longer [place] [facility] mg oral tablet, Route: PO, Drug Active 2012 Medical extended form: ERTAB, [place] release Daily, Start date: 10/27/12 9:00:00, Duration: 30 day, Stop date: 11/25/12 9:00:00 insulin aspart 7 unit, Route: SUB-Q No Longer Manlapaz [facility] SUB-Q, Drug Active 2012 Medical form: SOLN, [place] TID-Before Meals, Dosing Weight 78.2, kg, Start date: 10/26/12 12:00:00, Duration: 30 day, Stop date: 11/25/12 11:30:00 Insulin regular 10 unit, 0.1 mL, SUB-Q No Longer [place] [facility] Route: SUB-Q, Active 2012 Medical Drug form: SOLN, [place] ONCE, Dosing Weight 78.2, kg, Start date: 10/26/12 10:32:00, Stop date: 10/26/12 10:32:00 NIFEdipine 90 mg, 1 tab, PO No Longer [place] [facility] extended Route: PO, Drug Active 2012 Medical release form: ERTAB, [place] Daily, Dosing Weight 78.2, kg, Start date: 10/26/12 9:00:00, Duration: 30 day, Stop date: 11/24/12 9:00:00 metoprolol 25 mg, 1 tab, PO No Longer [place] [facility] tartrate Route: PO, Drug Active 2012 Medical form: TAB, Q12H, Center Dosing Weight 78.2, kg, Start date: 10/26/12 9:00:00, Duration: 30 day, Stop date: 11/24/12 21:00:00 Reglan 10 mg, 1 tab, PO No Longer [place] Fei Route: PO, Drug Active 2012 Medical form: TAB, Center Before Meals & Bedtime, Dosing Weight 78.2, kg, Start date: 10/25/12 16:30:00, Duration: 30 day, Stop date: 11/24/12 11:30:00 potassium 20 mEq, 100 mL, IVPB No Longer [place] [facility] chloride Route: IVPB, Active 2012 Medical Drug form: INJ, Center Q2H, Dosing Weight 78.2, kg, Total dose=40 mEq, Start date: 10/25/12 16:00:00, Duration: 2 doses or times, Stop date: 10/25/12 18:00:00 magnesium 2 gm, 50 mL, IVPB No Longer [place] [facility] sulfate Route: IVPB, Active 2012 Medical Drug form: INJ, Center Q2H, Dosing Weight 78.2, kg, Total dose=4 gm, Start date: 10/25/12 16:00:00, Duration: 2 doses or times, Stop date: 10/25/12 18:00:00 potassium 40 mEq, 2 tab, PO No Longer [place] [facility] chloride 20 mEq Route: PO, Drug [...] mL 1,000 mL, Rate: IV No Longer [place] [facility] 100 ml/hr, Active 2012 Medical Infuse over: 10 Center hr, Route: IV, kg, Total Volume: 1,000, Start date: 10/25/12 13:52:00, Duration: 30 day, Stop date: 11/24/12 13:51:00 atenolol 100 mg, 1 tab, PO No Longer [place] [facility] Route: PO, Drug Active 2012 Medical form: TAB, Center Daily, Dosing Weight 78.2, kg, Start date: 10/25/12 9:00:00, Duration: 30 day, Stop date: 11/23/12 9:00:00 Protonix 40 mg, Route: IVP No Longer [place] [facility] IVP, Drug form: Active 2012 Medical INJ, Daily, Center Dosing Weight 78.2, kg, Start date: 10/25/12 9:00:00, Duration: 30 day, Stop date: 11/23/12 9:00:00 NovoLog FlexPen 6 unit, 0.06 mL, SUB-Q No Longer [place] [facility] Route: SUB-Q, Active 2012 Medical Drug form: SOLN, Center TID-Before Meals, Start date: 10/25/12 7:30:00, Duration: 30 day, Stop date: 11/23/12 16:30:00 insulin lispro 6 unit, Route: SUB-Q No Longer [place] Dee [facility] SUB-Q, Active 2012 Medical TID-Before Center Meals, Dosing Weight 78.2, kg, Start date: 10/25/12 7:30:00, Duration: 30 day, Stop date: 11/23/12 16:30:00 Lactated 1,000 mL, Rate: IV No Longer [place] [facility] Ringers IV 250 ml/hr, Active 2012 Medical 1,000 mL Infuse over: 4 Center hr, Route: IV, kg, Total Volume: 1,000, Start date: 10/25/12 5:50:00, Duration: 30 day, Stop date: 11/24/12 5:49:00 Lactated 1,000 mL, Rate: [facility] Ringers (Bolus) 100 ml/hr, Active 2012 Medical IV 1,000 mL Infuse over: 10 Center hr, Route: IV, kg, Total Volume: 1,000, Start date: 10/25/12 5:50:00, Duration: 1 doses or times, Stop date: 10/25/12 15:49:00 insulin aspart 9 unit, 0.09 mL, SUB-Q No Longer Man[place]az [facility] Route: SUB-Q, Active 2012 Medical Drug form: SOLN, Center TID-Before Meals, Dosing Weight 78.2, kg, PRN Blood Glucose Results, Start date: 10/25/12 3:53:00, Duration: 30 day, Stop date: 11/24/12 3:52:00 glucagon 1 mg, Route: IM, IM No Longer [place] [facility] Drug form: Active 2012 Medical PDR/INJ, PRN, Center Dosing Weight 78.2, kg, PRN Blood Glucose Results, Start date: 10/25/12 3:53:00, Duration: 30 day, Stop date: 11/24/12 4:52:00 Dextrose 50% 12.5 gm, 25 mL, IVP No Longer Funez [facility] Syringe Route: IVP, Drug Active 2012 Medical Form: INJ, Center Dosing Weight 78.2, kg, PRN, PRN Blood Glucose Results, Start date: 10/25/12 3:53:00, Duration: 30 day, Stop date: 11/24/12 4:52:00 Dextrose 50% 25 mL, Route: IVP No Longer Dee Dee [facility] 10/25[facility] Syringe IVP, Dosing Active 2012 Medical Weight 78.2, kg, Center PRN, PRN Blood Glucose Results, Start date: 10/25/12 3:52:00, Duration: 30 day, Stop date: 11/24/12 4:51:00 glucagon 1 mg, Route: IM, IM No Longer [place] Dee [facility] 10/[facility] PRN, Dosing Active 2012 Medical Weight 78.2, kg, Center PRN Blood Glucose Results, Start date: 10/25/12 3:52:00, Duration: 30 day, Stop date: 11/24/12 4:51:00 Neutra-Phos 2 pkt, Route: PO No Longer Neeru [facility] PO, Drug Form: Active 2012 Medical PDR/REC, Dosing Center Weight 78.2, kg, ONCE, Start date: 10/25/12 1:07:00, Stop date: 10/25/12 1:07:00 insulin detemir 25 unit, 0.25 SUB-Q No Longer Man[place]az [facility] mL, Route: Active 2012 Medical SUB-Q, Drug Center form: INJ, Q12H, Dosing Weight 78.2, kg, Priority: NOW, Start date: 10/25/12 1:06:00, Stop date: 11/23/12 21:00:00 heparin 5000 5,000 unit, 1 SUB-Q No Longer Neeru [facility] units/mL mL, Route: Active 2012 Medical injectable SUB-Q, Drug Center solution form: INJ, Q8H, Dosing Weight 78.2, kg, Start date: 10/25/12 0:00:00, Duration: 30 day, Stop date: 11/23/12 16:00:00 Effient 10 mg, Route: PO No Longer Tanikella [facility] PO, Q12H, Dosing Active 2012 Medical Weight 78.2, kg, Center Start date: 10/24/12 21:00:00, Duration: 30 day, Stop date: 11/23/12 9:00:00 Saline Flush 10 mL, Route: IVP No Longer Martínez [facility] 0.9% IVP, Drug Form: Active 2012 Medical INJ, Dosing Center Weight 78.2, kg, Q12H, Start date: 10/24/12 21:00:00, Duration: 30 day, Stop date: 11/23/12 9:00:00 Neutra-Phos 2 pkt, Route: PO No Longer Funez Kamel [facility] PO, Drug Form: Active 2012 Medical PDR/REC, Dosing Center Weight 78.2, kg, ONCE, Start date: 10/24/12 20:35:00, Stop date: 10/24/12 20:35:00 potassium 20 mEq, 100 mL, IVPB No Longer Funez Kamel [facility] chloride Route: IVPB, Active 2012 Medical [...] 1,000 mL, Rate: IV No Long[facility] Ringers 150 ml/hr, Active 2012 Medical Injection IV Infuse over: 6.7 Center 1,000 mL hr, Route: IV, kg, Total Volume: 1,000, Start date: 10/24/12 11:50:00, Duration: 30 day, Stop date: 11/23/12 11:49:00 lisinopril 20 mg, 1 tab, PO No Longer Funez [facility] Fei Route: PO, Drug Active 2012 Medical [...] mg, 1 tab, PO No Longer Funez [facility] Fei Route: PO, Drug Active 2012 Medical form: TAB, Center Daily, Dosing Weight 78.2, kg, Priority: NOW, Start date: 10/24/12 10:53:00, Duration: 30 day, Stop date: 11/23/12 9:00:00 potassium 40 mEq, 2 tab, PO No Longer Funez [facility] Fei chloride Route: PO, Drug Active 2012 [...] mg, 4 mL, IV No Longer Bin [facility] Route: IV, Drug Active 2012 Medical form: [...] Duration: 1 doses or times, Dose=2.2ml/kg, Max [id number] -- "To be infused by Radiology Staff ONLY"Dose=2.2ml/ kg, Max [id number] -- "To be infused by Radiology Staff [...] Duration: 1 doses or times, Dose=2.2ml/kg, Max [id number] -- "To be infused by Radiology Staff ONLY"Dose=2.2ml/ kg, Max [id number] -- "To be infused by Radiology Staff ONLY" Insulin 100 mL, Rate: IV No Longer [place] Fe[facility] (regular) 0.1units/kg/hour Active 2012 Medical Titrate [...] 1,000 mL, Rate: IV No Longer Isaac [place] 0.9% IV 1,000 100 ml/hr, Active 2012 Medical mL + M.V.I.-[id number] Infuse over: Center 10 mL Daily + 10.1 hr, Route: folic acid IV 1 IV, kg, Total mg Daily + Volume: 1,011.2, thiamine IV 1 Start date: 10/23/12 8:41:00, Duration: 3 day, Stop date: 10/26/12 8:40:00 Insulin regular 100 mL, Rate: IVPB No Longer Isaac [place] 100 unit + Start Insulin Active 2012 [...] gm, 50 mL, IVP No Longer Isaac [place] Syringe Route: IVP, Drug Active 2012 Medical Form: INJ, Center Dosing Weight 113.636, kg, PRN, PRN Blood Glucose Results, Start date: 10/23/12 8:17:00, Duration: 30 day, Stop date: 11/22/12 9:16:00 normal saline 1,000 mL, Rate: IV No Longer Isaac [place] 0.9% IV 1,000 150 ml/hr, Active 2012 [...] mg, 0.5 mL, IV No Longer Funez [facility] Fei Route: IV, Drug Active 2012 Medical form: INJ, Q4H, Center Dosing Weight 113.636, kg, PRN Other -See Comment, Start date: 10/23/12 0:38:00, Duration: 30 day, Stop date: 11/22/12 0:37:00, hypertesnion acetaminophen 650 mg, 1 supp, [place] No Longer Kristy Fei Route: [place], Drug Active 2012 Medical [...] mg, 5 mL, IVP No Longer Funez [facility] mg/5 ml INJ Route: IVP, Drug [...] mg, Route: IM, IM No Longer Isaac [place] Drug form: Active 2012 Medical PDR/INJ, PRN, Center Dosing Weight 113.636, kg, PRN Blood Glucose Results, Start date: 10/23/12 0:26:00, Duration: 30 day, Stop date: 11/22/12 1:25:00 Dextrose 50% 25 gm, 50 mL, IVP No Longer Isaac [place] Syringe Route: IVP, Drug Active 2012 Medical Form: INJ, Center Dosing Weight 113.636, kg, PRN, PRN Blood Glucose Results, Start date: 10/23/12 0:26:00, Duration: 30 day, Stop date: 11/22/12 1:25:00 Zofran ODT 8 mg, 1 tab, PO No Longer Steward [place] Route: PO, Drug Active 2012 Medical form: TABDIS, Center Q8H, Dosing Weight 113.636, kg, PRN Nausea, Start date: 10/23/12 0:02:00, Stop date: 11/22/12 0:01:00 heparin 5,000 unit, SUB-Q No Longer Brian [place] Route: SUB-Q, Active 2012 Medical Q8H, Dosing Center Weight 113.636, kg, Start date: 10/23/12 0:00:00, Duration: 30 day, Stop date: 11/21/12 16:00:00 carvedilol 25 Daily, No Longer [place] mg oral tablet Substitution Active 2012 Medical Allowed [facility] Diovan HCT 160 1 tab, PO, PO No Longer [place] mg-12.5 mg oral Daily, 30 tab, Active [...] mg, 10 mL, [place] No Longer Pauline 10/07[facility] Fei Route: [place], Drug Active 2012 Medical form: SUSP, Center Q12H, Dosing Weight 118.2, kg, Start date: 10/07/12 14:30:00, Duration: 7 day, Stop date: 10/14/12 9:00:00 [place] 325 mg-10 15 mL, Route: PO No Longer Sushila Fei mg / 15 mL oral PO, Drug Form: Active 2012 Medical solution SOLN, Dosing Center Weight 118.2, kg, Q4H, PRN For Pain, Start date: 10/07/12 14:22:00, Duration: 30 day, Stop date: 11/06/12 14:21:00 Diovan 160 mg, 1 tab, PO No Longer Sushila [facility] Route: PO, Drug Active 2012 Medical form: TAB, Center Daily, Dosing Weight 118.2, kg, Start date: 10/07/12 14:00:00, Duration: 30 day, Stop date: 11/06/12 9:00:00 Coreg 25 mg, 1 tab, PO No Longer Sushila [facility] Route: PO, Drug Active 2012 Medical form: TAB, Q12H, Center Dosing Weight 118.2, kg, Start date: 10/07/12 14:00:00, Duration: 30 day, Stop date: 11/06/12 9:00:00 potassium 20 mEq, 100 mL, IVPB No Longer Bagshahi [facility] chloride Route: IVPB, Active 2012 Medical [...] Route: TOP, TOP No Longer Dru Fei [place] Dosing Weight Active 2012 Medical 118.2, kg, PRN, Center PRN, Start date: 10/06/12 22:46:00, Duration: 30 day, Stop date: 11/05/12 22:45:00, prn Dilaudid 0.2 mg, 0.1 mL, IV No Longer Sushila [facility] Route: IV, Drug Active 2012 Medical [...] mg, 1 mL, IV No Longer Sushila Fie Route: [...] unit, 0.2 mL, SUB-Q No Longer Sushila [facility] Route: SUB-Q, Active 2012 Medical Drug form: INJ, Center Q12H, Start date: 10/05/12 21:00:00, Duration: 30 day, Stop date: 11/04/12 9:00:00 carvedilol 25 mg, 1 tab, PO No Longer Sushila [facility] Route: PO, Drug Active 2012 Medical form: TAB, Q12H, Center Dosing Weight 118.2, kg, Start date: 10/04/12 21:00:00, Duration: 30 day, Stop date: 11/03/12 9:00:00 [place] 325 mg-10 30 mL, Route: PO No Longer Allencaim Fei mg / 15 mL oral PO, Drug Form: Active 2012 Medical solution SOLN, Dosing Center Weight 118.2, kg, Q4H, PRN Pain Score 6-10, Start date: 10/04/12 17:20:00, Duration: 30 day, Stop date: 11/03/12 17:19:00 Diovan 160 mg, 1 tab, PO No Longer Sushila [facility] Route: PO, Drug Active 2012 Medical form: TAB, Center Daily, Dosing Weight 118.2, kg, Start date: 10/04/12 14:00:00, Duration: 30 day, Stop date: 11/03/12 9:00:00 Trandate 10 mg, 2 mL, IVP No Longer Low [facility] Route: IVP, Drug Active 2012 Medical form: INJ, Q4H, Center PRN Elevated BP, Start date: 10/04/12 9:05:00, Duration: 30 day, Stop date: 11/03/12 9:04:00 hydrALAZINE 20 mg, 1 mL, IVP No Longer Low [facility] Route: IVP, Drug Active 2012 Medical [...] unit, 0.2 mL, SUB-Q No Longer Low [facility] Route: SUB-Q, Active 2012 Medical Drug form: INJ, Center Q12H, Dosing Weight 118.2, kg, Priority: NOW, Start date: 10/04/12 7:02:00, Duration: 30 day, Stop date: 11/02/12 21:00:00 hydrALAZINE 10 mg, 0.5 mL, IVP No Longer Low [facility] Route: IVP, Drug Active 2012 Medical form: INJ, ONCE, Center Dosing Weight 118.2, kg, Start date: 10/04/12 6:53:00, Stop date: 10/04/12 6:53:00 labetalol 10 mg, 2 mL, IVP No Longer Low [facility] Route: IVP, Drug Active 2012 Medical form: INJ, Center Q15Min, Dosing Weight 118.2, kg, PRN Hypertension, Start date: 10/04/12 5:11:00, Duration: 3 doses or times, Stop date: Limited # of times Insulin regular 12 unit, 0.12 SUB-Q No Longer Big Barson [place] mL, Route: Active 2012 Medical SUB-Q, Drug Center form: SOLN, Sliding Scale, Dosing Weight 118.2, kg, PRN Blood Glucose Results, Start date: 10/04/12 0:40:00, Duration: 30 day, Stop date: 11/03/12 0:39:00 Dextrose 50% 25 gm, 50 mL, IVP No Longer Allenson [facility] Syringe Route: IVP, Drug Active 2012 Medical Form: INJ, Center Dosing Weight 118.2, kg, PRN, PRN Blood Glucose Results, Start date: 10/04/12 0:40:00, Duration: 30 day, Stop date: 11/03/12 0:39:00 glucagon 1 mg, Route: IM, IM No Longer Big Barson [facility] Drug form: Active 2012 Medical PDR/INJ, PRN, Center Dosing Weight 118.2, kg, PRN Blood Glucose Results, Start date: 10/04/12 0:40:00, Duration: 30 day, Stop date: 11/03/12 0:39:00 Ofirmev 1,000 mg, 100 IV No Longer [facility] mL, Route: IV, Active 2012 Medical Drug form: INJ, Center Q6H, Start date: 10/03/12 18:00:00, Duration: 4 doses or times, Stop date: 10/04/12 12:00:00 Mefoxin 2 gm, Route: IVPB No Longer [facility] IVPB, Drug form: Active 2012 Medical INJ, ABXQ8H, [facility] Start date: 10/03/12 16:00:00, Duration: 2 doses or times, Stop date: 10/04/12 0:00:00 Lopressor 5 mg, 5 mL, IV No Longer Low [facility] Route: IV, Drug Active 2012 Medical form: INJ, Q6H, Center Start date: 10/03/12 16:00:00, Duration: 30 day, Stop date: 11/02/12 10:00:00 Humulin R 100 10 unit, 0.1 mL, SUB-Q No Longer [facility] units/mL Route: SUB-Q, Active 2012 Medical injectable Drug form: SOL, [facility] solution TID-Before Meals, PRN Blood Glucose Results, Start date: 10/03/12 14:30:00, Duration: 30 day, Stop date: 11/02/12 14:29:00 Dextrose 50% in 50 mL, Route: IV No Longer [facility] 10/03[facility] Water IV IV, Start date: Active 2012 Medical 10/03/12 Center 14:29:00, Duration: 30 day, Stop date: 11/02/12 14:28:00, PRN Blood Glucose Results Dextrose 50% in 25 mL, Route: IVP No Longer [facility] 01/28[facility] Water IV IVP, Start date: Active 2012 Medical 10/03/12 Center 14:28:00, Duration: 30 day, Stop date: 11/02/12 14:27:00, PRN Blood Glucose Results Zofran 4 mg, 2 mL, IVP No Longer Low [facility] Route: IVP, Drug Active 2012 Medical form: INJ, Q8H, Center PRN Nausea, Start date: 10/03/12 14:22:00, Duration: 30 day, Stop date: 11/02/12 14:21:00 naloxone 0.2 mg, 0.5 mL, IV No Longer Bagshahi [facility] Route: IV, Drug Active 2012 Medical form: INJ, PRN, Center PRN Narcotic Reversal, Start date: 10/03/12 14:21:00, Duration: 30 day, Stop date: 11/02/12 14:20:00 hydromorphone IV, Start date: IV No Longer Low [facility] 15 mg 10/03/12 Active 2012 Medical 14:19:00, Center Duration: 30, 30 ml, 118.2 Phenergan 12.5 mg, 0.5 mL, IVPB No Longer Bagshi [facility] Route: IVPB, Active 2012 Medical Drug form: INJ, Center Q4H, PRN Nausea, Start date: 10/03/12 14:08:00, Duration: 30 day, Stop date: 11/02/12 14:07:00 Phenergan 12.5 mg, 0.5 mL, [facility] Route: IM, Drug Active 2012 Medical form: INJ, Q4H, Center PRN Nausea, Start date: 10/03/12 14:07:00, Duration: 30 day, Stop date: 11/02/12 14:06:00 Benadryl 25 mg, 0.5 mL, IM No Longer Sushila [facility] Route: IM, Drug Active 2012 Medical form: INJ, Center Bedtime, PRN Insomnia, Start date: 10/03/12 14:04:00, Duration: 30 day, Stop date: 11/02/12 14:03:00 Lactated 1,000 mL, Rate: IV No Longer Low [place] 125 ml/hr, Active 2012 Medical Injection IV Infuse over: 8 Center 1,000 mL hr, Route: IV, kg, Total Volume: 1,000, Start date: 10/03/12 14:00:00, Duration: 30 day, Stop date: 11/02/12 13:59:00 ondansetron 4 mg, 2 mL, IVP No Longer Jose [facility] Route: IVP, Drug Active 2012 Medical form: INJ, ONCE, Center Dosing Weight 118.182, kg, PRN Nausea & Vomiting, Start date: 10/03/12 11:00:00 acetaminophen-o 1 tab, Route: PO No Longer Jose Fie xycodone 325 PO, Drug Form: Active 2012 Medical mg-5 mg oral TAB, Dosing Center tablet Weight 118.182, kg, Q4H, PRN Pain Score 1-3, Start date: 10/03/12 11:00:00, Stop date: 10/04/12 0:00:00 hydromorphone 0.5 mg, 0.25 mL, IVP No Longer Jose [facility] Route: IVP, Drug Active 2012 Medical [...] 2 gm, Route: IVPB No Longer Sushila [place] IVPB, Drug form: Active 2012 Medical INJ, PRE OP, Center Priority: STAT, Start date: 10/03/12 5:50:00, Duration: 1 day, Stop date: 10/04/12 5:49:00 Mobic 15 mg 10 mg, PO, PO Active [place] oral tablet Daily, 30 tab, 2012 Medical Substitution Center Allowed, TAB Zetia Daily, Active [facility] Substitution 2011 Medical Allowed Center Klor-Con 10 10 mEq, 1 tab, PO Active [place] oral tablet, PO, Daily, 180 2011 Medical extended tab, Center release Substitution Allowed, ERTAB ferrous 324 mg, 1 tab, PO Active [facility] gluconate 324 PO, Daily, 100 2011 Medical mg oral tablet tab, Center Substitution Allowed, TAB Lasix 40 mg 40 mg, 1 tab, PO Active [place] oral tablet PO, Daily, 30 2011 Medical tab, Center Substitution Allowed, TAB Cymbalta 60 mg 60 mg, 1 cap, PO Active [facility] oral delayed PO, BID, 30 cap, [...] mg 150 mg, 1 cap, PO Active [facility] oral capsule PO, BID, 90 cap, 2011 Medical Substitution Center Allowed, CAP Klonopin 0.5 mg 0.5 mg, 1 tab, PO Active [facility] oral tablet PO, TID, 2011 Medical Substitution Center Allowed, TAB Diovan 160 mg 160 mg, 1 tab, PO Active [place] oral tablet PO, Daily, 30 2011 Medical tab, Center Substitution Allowed, TAB carvedilol 25 25 mg, 1 tab, PO Active [place] mg oral tablet PO, BID, 60 tab, 2011 [facility] Substitution Center Allowed, TAB omeprazole 20 [...] oral tablet PO, BID, 30 tab, 2011 [facility] Substitution Center Allowed NovoLog Substitution Active [facility] Allowed 2011 [facility] Levemir FlexPen Substitution Active [facility] Allowed 2011 [facility] Allergies, Adverse Reactions, Alerts No Known Medication Allergies Immunizations Immunization Date Given Site Status Last Updated Comments Source influenza virus 07/14/2013 completed [facility] vaccine, Medical inactivated Center pneumococcal 07/14/2013 completed Vora [facility] 23-valent vaccine [facility] Results Order Name Results Value Reference Date Interpretation Comments Source Range CHEMISTRY U Preg Negative Negative 08/13 Normal [facility] (08/13/2013 13:30:00) [facility] URINALYSIS UA RBC 0-2 /HPF 0 - 2 08/13 Normal [facility] URINALYSIS UA WBC 3-5 /HPF None Seen 08/13 Normal [facility] URINALYSIS UA Sq Epi Few /LPF Few 08/13 Normal Medical Center URINALYSIS Micro? Performed 08/13 Normal [facility] (08/13/2013 13:30:00) [facility] URINALYSIS UA Hyal Cast 0-2 0 - 2 08/13 Normal [facility] (08/13/2013 13:30:00) Medical Center URINALYSIS UA Glucose 250 mg/dL Negative 08/13 [facility] URINALYSIS UA Blood Negative Negative 08/13 Normal [facility] (08/13/2013 13:30:00) [facility] URINALYSIS UA Ketones >=80 mg/dL Negative 08/13 [facility] URINALYSIS UA 0.2 0.1 - 1.0 08/13 Normal [facility] Urobilinogen [facility] URINALYSIS UA Nitrite Negative Negative 08/13 Normal [facility] (08/13/2013 13:30:00) [facility] URINALYSIS UA Bili Small 1 Negative 08/13 ABN <sup>1</sup>R [facility] *ABN* [facility] (08/13/2013 13:30:00) Comment: Center Interpret positive bilirubin results with caution. Confirmatory testing
n ot possible due to the unavailabilit y of reagent. Correlation with
seru m chemistry results recommended. URINALYSIS UA Leuk Est Negative Negative 08/13 [facility] (08/13/2013 13:30:00) [facility] URINALYSIS UA Protein Negative Negative 08/13 [facility] (08/13/2013 13:30:00) [facility] URINALYSIS UA pH 6.0 5.0 - 8.0 08/13 Normal [facility] URINALYSIS UA Spec Grav 1.020 <=1.030 08/13 Normal [facility] URINALYSIS UA Color Yellow Yellow 08/13 [facility] *NA* [facility] (08/13/2013 13:30:00) [facility] URINALYSIS UA Turbidity Clear Clear 08/13 Normal [facility] (08/13/2013 13:30:00) [facility] CHEMISTRY BE Mark 1 -2-2 - 2 08/13 Normal [facility] CHEMISTRY pO2 Mark 29 20 - 49 08/13 Normal [facility] CHEMISTRY O2 Sat Mark 55.9 40.0 - 08/13 [facility] 70.0 [facility] CHEMISTRY Temp Mark 37.0 08/13 [facility] CHEMISTRY HCO3 Mark 26 22 - 26 08/13 Normal [facility] CHEMISTRY pCO2 Mark 41 38 - 52 08/13 Normal [facility] CHEMISTRY pH Mark 7.41 7.28 - 08/13 [facility] 7.42 [facility] CHEMISTRY eGFR 60 08/13 <sup>2</sup>R [facility] Comment: The Center eGFR is [...] CO2 25 24 - 32 08/13 Normal [facility] CHEMISTRY Chloride Lvl 98 95 - 109 08/13 Normal [facility] CHEMISTRY BUN 9 7 - 22 08/13 [facility] CHEMISTRY Calcium Lvl 9.1 8.5 - 10.5 08/13 Normal [facility] CHEMISTRY Glucose Lvl 301 70 - 99 08/13 [place] <sup>3</sup>I nterpretive Medical Data: [facility] Center reference range values reflect the clinical guidelines
of the [place] [employer]. CHEMISTRY Potassium Lvl 3.8 3.5 - 5.1 08/13 Normal [facility] CHEMISTRY Sodium Lvl 134 135 - 145 08/13 LOW [facility] CHEMISTRY Creatinine 1.1 0.5 - 1.4 08/13 Normal [facility] Lvl [facility] CHEMISTRY Bili Total 0.6 0.2 - 1.3 08/13 Normal [facility] CHEMISTRY ASPARTATE 17 0 - 37 08/13 Normal [facility] TRANSAMINASE [facility] CHEMISTRY ALANINE 22 0 - 65 08/13 [facility] AMINO [facility] CHEMISTRY Albumin Lvl 3.5 3.5 - 5.0 08/13 Normal [facility] CHEMISTRY Alk Phos 130 39 - 136 08/13 Normal [facility] CHEMISTRY Total Protein 7.8 6.4 - 8.4 08/13 Normal [facility] CHEMISTRY B/C Ratio 8 6 - 25 08/13 Normal [facility] CHEMISTRY AGAP 14.8 10.0 - 12 [facility] 20.0 /2012 [facility] CHEMISTRY Globulin 4.3 2.0 - 4.0 12/ HI [facility] CHEMISTRY A/G Ratio 0.8 0.7 - 1.6 12/ Normal [facility] HEMATOLOGY Monocytes # 0.8 0.0 - 0.8 12/ Normal [facility] HEMATOLOGY Eosinophils # 0.0 0.0 - 0.5 12/ Normal [facility] HEMATOLOGY Basophils # 0.0 0.0 - 0.2 12/ Normal [facility] HEMATOLOGY Basophils 0.1 0.0 - 1.0 12/ Normal [facility] HEMATOLOGY Lymphocytes # 1.4 1.0 - 5.5 12 Normal [facility] HEMATOLOGY Segs-Bands # 10.5 1.5 - 8.1 12 HI [facility] HEMATOLOGY Monocytes 6.3 2.0 - 12.0 12/ Normal [facility] HEMATOLOGY Eosinophils 0.2 0.0 - 4.0 12/ Normal [facility] HEMATOLOGY Lymphocytes 11.3 20.0 - 12/08 LOW [place] 40.0 /2012 [facility] HEMATOLOGY Segs 82.1 45.0 - 12/08 [facility] [place] 75.0 /2012 [facility] HEMATOLOGY WBC X 10x3 12.7 3.7 - 10.4 12 HI [facility] HEMATOLOGY Hct 37.0 36.0 - 12/08 Normal [place] 48.0 /2012 [facility] HEMATOLOGY RBC X 10x6 4.36 4.20 - 12/08 Normal [place] 5.40 /2012 [facility] HEMATOLOGY Hgb 12.6 12.0 - 12/08 Normal [place] 16.0 /2012 [facility] HEMATOLOGY MCV 84.8 81.0 - 12/08 Normal [place] 99.0 /2012 Medical [facility] HEMATOLOGY MCH 28.8 27.0 - 12/08 Normal [place] 31.0 /2012 [facility] HEMATOLOGY MCHC 34.0 32.0 - 12/08 Normal [place] 36.0 /2012 [facility] HEMATOLOGY Platelet 238 133 - 450 12 Normal [facility] HEMATOLOGY MPV 9.5 7.4 - 10.4 12/ Normal [facility] HEMATOLOGY RDW 13.1 11.5 - 12/08 Normal [facility] [place] 14.5 /2012 Medical Center BEDSIDE Gluc POC Notify 07/26 [facility] GLUCOSE Comment 1 RN/MD /2012 Medical TESTING Center BEDSIDE Glucose POC 274 70 - 99 07/26 [place] <sup>1</sup>I [facility] GLUCOSE nterpretive Medical TESTING Data: [facility] [place] Reportable Limit: 200 mg/dL. BEDSIDE Glucose POC 146 70 - 99 07/15 [place] <sup>2</sup>I [facility] GLUCOSE nterpretive Medical TESTING Data: [facility] [place] Reportable Limit: 200 mg/dL. BEDSIDE Gluc POC Notify 07/15 [facility] GLUCOSE Comment 1 RN/MD /2012 Medical TESTING Center BEDSIDE Glucose POC 140 70 - 99 07/14 [place] <sup>3</sup>I [facility] GLUCOSE nterpretive Medical TESTING Data: [facility] [place] Reportable Limit: 200 mg/dL. BEDSIDE Gluc POC Notify 07/14 [facility] GLUCOSE Comment 1 RN/MD /2012 Medical TESTING Center BEDSIDE Gluc POC Notify 07/14 [facility] GLUCOSE Comment 1 RN/MD /2012 Medical TESTING Center BEDSIDE Glucose POC 44 70 - 99 07/14 LOW <sup>4</sup>I [facility] [place] [facility] nterpretive Medical TESTING Data: [facility] Upper Reportable Limit: 200 mg/dL. IMMUNOLOGY [place]-HIV Negative Negative 07/14 [facility] 09/07 Ab *NA* Medical (07/14/2013 00:27:00) Center IMMUNOLOGY [place]-Hep C Negative Negative 07/14 [facility] Ab *NA* Medical (07/14/2013 00:27:00) Center [...] Lvl 135 135 - 145 07/13 Normal [facility] CHEMISTRY Chloride Lvl 95 95 - 109 07/13 Normal [facility] CHEMISTRY AGAP 16.5 10.0 - 07/13 Normal [facility] 20.0 [facility] CHEMISTRY Glucose Lvl 322 70 - 99 07/13 [place] <sup>8</sup>I nterpretive Medical Data: [facility] Center reference range values reflect the clinical guidelines
of the [place] [employer]. CHEMISTRY Creatinine 0.6 0.5 - 1.4 07/13 Normal [facility] CHEMISTRY BUN 6 7 - 22 07/13 LOW [facility] CHEMISTRY Calcium Lvl 8.6 8.5 - 10.5 07/13 Normal [facility] CHEMISTRY CO2 27 24 - 32 07/13 Normal [facility] CHEMISTRY Potassium Lvl 3.5 3.5 - 5.1 07/13 Normal [facility] INFECTIOUS C difficile Negative 1 Negative 07/13 Normal <sup>1</sup>I [facility] DISEASES DNA (07/13/2013 00:00:59) nterpretive Medical Data: [facility] [place] illum[employer] Clostridium difficile assay utilizes loop-mediated isothermal [...] Acid 1.9 0.5 - 2.2 07/12 Normal [facility] CHEMISTRY eGFR 88 07/12 <sup>6</sup>R esult [...] CHEMISTRY Troponin-I <0.02 0.00 - 07/12 Normal [facility] 0.40 /2012 [facility] HEMATOLOGY Basophils # 0.0 0.0 - 0.2 07/12 Normal [facility] HEMATOLOGY Eosinophils # 0.3 0.0 - 0.5 07/12 Normal [facility] HEMATOLOGY Monocytes # 1.0 0.0 - 0.8 07/12 HI [facility] HEMATOLOGY Lymphocytes # 3.0 1.0 - 5.5 07/12 Normal [facility] HEMATOLOGY Segs-Bands # 6.4 1.5 - 8.1 07/12 Normal [facility] HEMATOLOGY Basophils 0.4 0.0 - 1.0 07/12 Normal [facility] HEMATOLOGY Eosinophils 2.8 0.0 - 4.0 07/12 Normal [facility] HEMATOLOGY Plt Morph Normal 07/12 Normal [facility] (07/12/2013 16:29:10) [facility] HEMATOLOGY RBC Morph Normal 07/12 Normal [facility] (07/12/2013 16:29:10) [facility] HEMATOLOGY Monocytes 9.4 2.0 - 12.0 07/12 Normal [facility] HEMATOLOGY Lymphocytes 27.9 20.0 - 07/12 Normal [place] 40.0 [facility] HEMATOLOGY Segs 59.5 45.0 - 07/12 Normal [place] 75.0 /2012 [facility] HEMATOLOGY MCV 85.3 81.0 - 07/12 Normal [place] 99.0 [facility] HEMATOLOGY Hct 41.2 36.0 - 07/12 Normal [facility] 48.0 /2012 Medical Center HEMATOLOGY Hgb 13.6 12.0 - 11 Normal [facility] 16.0 /2012 Medical Center HEMATOLOGY RBC X 10x6 4.84 4.20 - 11 Normal [facility] 5.40 /2012 Medical Center HEMATOLOGY MPV 9.4 7.4 - 10.4 11 Normal [facility] HEMATOLOGY Platelet 225 133 - 450 11 Normal [facility] HEMATOLOGY MCH 28.1 27.0 - 11 Normal [facility] 31.0 /2012 Medical Center HEMATOLOGY MCHC 33.0 32.0 - 11 Normal [facility] 36.0 /2012 Medical Center HEMATOLOGY RDW 12.7 11.5 - 11 Normal [facility] 14.5 /2012 Medical Center HEMATOLOGY WBC X 10x3 10.7 3.7 - 10.4 07/12 HI [facility] CHEMISTRY AGAP 12.4 10.0 - 07/12 Normal [facility] 20.0 Medical Center CHEMISTRY Calcium Lvl [...] Creatinine 0.8 0.5 - 1.4 07/12 Normal [facility] CHEMISTRY BUN 6 7 - 22 07/12 LOW Medical [facility] CHEMISTRY Glucose Lvl 163 70 - 99 07/12 HI <sup>9</sup>I nterpretive Medical Data: Adult Center reference range values reflect the clinical guidelines
of the [place] [employer]. IMMUNOLOGY CDC-HIV 1/2 Negative Negative 07/12 [facility] Ab *NA* /2012 Medical (07/12/2013 16:02:06) Center CHEMISTRY Calcium Lvl 8.4 8.5 - 10.5 07/12 LOW Medical Center CHEMISTRY AGAP 10.4 10.0 - 07/12 Normal [facility] 20.0 Medical Center CHEMISTRY eGFR 76 07/12 <sup>7</sup>R [facility] esult Medical Comment: The Center eGFR [...] Lvl 140 135 - 145 07/12 Normal [facility] CHEMISTRY Chloride Lvl 103 95 - 109 07/12 Normal [facility]2012 [facility] CHEMISTRY Potassium Lvl 3.4 3.5 - 5.1 07/12 LOW [facility]2012 [facility] CHEMISTRY BUN 9 7 - 22 07/12 Normal [facility] CHEMISTRY Creatinine 0.9 0.5 - 1.4 07/12 Normal [facility] /2012 [facility] CHEMISTRY Glucose Lvl 296 70 - 99 07/12 HI <sup>10</sup> Interpretive Medical Data: Adult Center reference range values reflect the clinical guidelines
of the [place] [employer]. CHEMISTRY CO2 30 24 - 32 07/12 Normal [facility] CHEMISTRY Troponin-I <0.02 0.00 - 11 Normal [facility] 0.40 [facility] CHEMISTRY Lipase Lvl 76 73 - 393 07/12 Normal [facility] CHEMISTRY B/C Ratio 11 6 - 25 07/12 Normal [facility] CHEMISTRY ASPARTATE 25 0 - 37 07/12 Normal [facility] TRANSAMINASE [facility] CHEMISTRY Bili Total 0.4 0.2 - 1.3 07/12 Normal [facility]2012 [facility] CHEMISTRY Alk Phos 119 39 - 136 07/12 Normal [facility] CHEMISTRY Albumin Lvl 3.9 3.5 - 5.0 07/12 Normal [facility] CHEMISTRY ALANINE 29 0 - 65 07/12 Normal [facility] AMINOTRANSFER [facility] CHEMISTRY Total Protein 8.1 6.4 - 8.4 07/12 Normal [facility] CHEMISTRY Globulin 4.2 2.0 - 4.0 07/12 HI [facility] CHEMISTRY A/G Ratio 0.9 0.7 - 1.6 07/12 Normal [facility] HEMATOLOGY Monocytes # 0.6 0.0 - 0.8 07/12 Normal [facility] HEMATOLOGY Segs-Bands # 9.5 1.5 - 8.1 07/12 HI [facility] HEMATOLOGY Eosinophils # 0.2 0.0 - 0.5 07/12 Normal [facility] HEMATOLOGY Lymphocytes # 2.1 1.0 - 5.5 07/12 Normal [facility] HEMATOLOGY Basophils 0.2 0.0 - 1.0 07/12 Normal [facility] HEMATOLOGY Neut Vac Slight None Seen 07/12 [facility] [place] *ABN* /2012 [facility] (07/12/2013 03:30:00) [facility] HEMATOLOGY Hypochrom Slight None Seen 07/12 Normal [facility] (07/12/2013 03:30:00) [facility] HEMATOLOGY Basophils # 0.0 0.0 - 0.2 07/12 Normal [facility] HEMATOLOGY RBC Morph Normal 07/12 Normal [facility] (07/12/2013 03:30:00) [facility] HEMATOLOGY Eosinophils 1.6 0.0 - 4.0 07/12 Normal [facility] HEMATOLOGY Monocytes 4.6 2.0 - 12.0 07/12 Normal [facility] HEMATOLOGY Segs 76.6 45.0 - 07/12 HI [place] 75.0 [facility] HEMATOLOGY Lymphocytes 17.0 20.0 - 07/12 LOW [place] 40.0 [facility] HEMATOLOGY Plt Morph Normal 07/12 Normal [facility] (07/12/2013 03:30:00) [facility] HEMATOLOGY MCHC 32.4 32.0 - 07/12 Normal [place] 36.0 [facility] HEMATOLOGY MCH 27.4 27.0 - 07/12 Normal [place] 31.0 [facility] HEMATOLOGY RDW 12.7 11.5 - 07/12 Normal [facility] [place] 14.5 /2012 [facility] HEMATOLOGY Platelet 235 133 - 450 07/12 Normal [place] [facility] HEMATOLOGY MPV 9.4 7.4 - 10.4 07/12 Normal [facility] HEMATOLOGY Hgb 12.9 12.0 - 07/12 Normal [facility] 16.0 /2012 [facility] HEMATOLOGY MCV 84.3 81.0 - 07/12 Normal [facility] 99.0 /2012 [facility] HEMATOLOGY Hct 39.6 36.0 - 07/12 Normal [facility] 48.0 /2012 [facility] HEMATOLOGY WBC X 10x3 12.4 3.7 - 10.4 07/12 HI [facility] HEMATOLOGY RBC X 10x6 4.70 4.20 - 07/12 Normal [facility] 5.40 /2012 [facility] CHEMISTRY U Preg Negative Negative 07/12 Normal [facility] (07/12/2013 03:00:00) [facility] URINALYSIS UA Leuk Est Negative Negative 07/12 Normal [facility] (07/12/2013 03:00:00) [facility] URINALYSIS UA 0.2 0.1 - 1.0 07/12 Normal [facility] Urobilinogen [facility] URINALYSIS UA Nitrite Negative Negative 07/12 Normal [facility] (07/12/2013 03:00:00) Medical Center URINALYSIS UA Bili Negative Negative 07/12 [facility] *NA* [facility] (07/12/2013 03:00:00) Center URINALYSIS UA pH 6.0 5.0 - 8.0 07/12 Normal [facility] URINALYSIS UA Protein Negative Negative 07/12 Normal [facility] mg/dL [facility] Center URINALYSIS UA Glucose >=1000 Negative 07/12 ABN [facility] mg/dL [facility] URINALYSIS UA Ketones 15 mg/dL Negative 07/12 ABN [facility] URINALYSIS UA Spec Grav 1.020 <=1.030 07/12 Normal [facility] URINALYSIS UA Blood Negative Negative 07/12 Normal [facility] (07/12/2013 03:00:00) Medical Center URINALYSIS UA Color Yellow Yellow 07/12 [facility] *NA* [facility] (07/12/2013 03:00:00) Center URINALYSIS UA Turbidity Clear Clear 07/12 Normal [facility] (07/12/2013 03:00:00) Medical Center URINALYSIS UA RBC 0-2 /HPF 0 - 2 07/12 Normal [facility] URINALYSIS UA WBC 3-5 /HPF None Seen 07/12 Normal [facility] URINALYSIS UA Sq Epi Many /LPF Few 07/12 ABN [facility] URINALYSIS UA Bacteria Few /HPF None Seen 07/12 Normal [facility] URINALYSIS UA [place] Yeast Moderate None Seen 07/12 ABN / Medical Center URINALYSIS Micro? Performed 07/12 Normal [facility] (07/12/2013 03:00:00) Medical Center BEDSIDE Gluc POC 226 70 - 99 04/03 HI <sup>1</sup>I [facility] GLUCOSE [facility] nterpretive Medical TESTING Data: [facility] Upper Reportable Limit: 200 mg/dL. BEDSIDE Comment2 Sliding 04/03 NA [facility] GLUCOSE Scale Medical TESTING Center BEDSIDE Comment1 Notify 04/03 NA [facility] GLUCOSE RN/ Medical TESTING Center BEDSIDE Comment1 Notify 04/03 NA [facility] GLUCOSE RN/MD /2012 Medical TESTING Center BEDSIDE Gluc POC 198 70 - 99 04/03 HI <sup>2</sup>I [facility] GLUCOSE [facility] nterpretive Medical TESTING Data: Center Upper Reportable Limit: 200 mg/dL. BEDSIDE Comment2 Sliding 04/03 NA [facility] GLUCOSE Scale Medical TESTING Center BEDSIDE Comment2 Sliding 04/03 NA [facility] GLUCOSE Scale Medical TESTING Center BEDSIDE Comment1 Notify 04/03 NA [facility] GLUCOSE RN/ /2012 Medical TESTING Center BEDSIDE Gluc POC 182 70 - 99 04/03 HI <sup>3</sup>I [facility] GLUCOSE Lif[facility] nterpretive Medical TESTING Data: [facility] Reportable Limit: 200 mg/dL. CHEMISTRY Troponin-T <0.010 0.000 - 04/03 Normal [facility] 0.100 [facility] CHEMISTRY Troponin-I <0.02 0.00 - 04/03 Normal [facility] 0.40 [facility] CHEMISTRY Total CK 41 12 - 191 04/03 Normal [facility] CHEMISTRY Creatinine 0.6 0.5 - 1.4 04/03 Normal [facility] Lvl Medical Center CHEMISTRY Sodium Lvl 137 135 - 145 04/03 Normal [facility] CHEMISTRY CO2 25 24 - 32 04/03 Normal [facility] CHEMISTRY Calcium Lvl 8.2 8.5 - 10.5 04/03 LOW [facility] CHEMISTRY AGAP 17.9 10.0 - 04/03 Normal [facility] 20.0 [facility] CHEMISTRY Potassium Lvl 3.9 3.5 - 5.1 04/03 Normal [facility] CHEMISTRY Chloride Lvl 98 95 - 109 04/03 Normal [facility] CHEMISTRY Glucose Lvl 266 70 - 99 04/03 HI <sup>6</sup>I nterpretive Medical Data: Adult Center reference range values reflect the clinical guidelines
of the [place] [employer]. CHEMISTRY BUN 3 7 - 22 04/03 LOW [facility] CHEMISTRY eGFR 109 04/03 NA <sup>4</sup>R [...] 10.5 12.0 - 04/03 LOW [place] 16.0 [facility] HEMATOLOGY RBC 4.22 4.20 - 04/03 Normal [place] 5.40 [facility] HEMATOLOGY WBC 10.3 3.7 - 10.4 04/03 Normal [facility] HEMATOLOGY Hct 33.5 36.0 - 04/03 LOW [place] 48.0 [facility] HEMATOLOGY MPV 8.8 7.4 - 10.4 04/03 Normal [facility] HEMATOLOGY Platelet 276 133 - 450 04/03 Normal [facility] HEMATOLOGY RDW 18.7 11.5 - 04/03 HI [place] 14.5 /2012 Medical [facility] HEMATOLOGY MCHC 31.2 32.0 - 07 LOW [place] 36.0 /2012 Medical [facility] HEMATOLOGY MCH 24.8 27.0 - 04/03 LOW [place] 31.0 /2012 Medical [facility] HEMATOLOGY MCV 79.5 81.0 - 04/03 LOW [place] 99.0 /2012 Medical [facility] HEMATOLOGY Segs 58.6 45.0 - 04/03 Normal [place] 75.0 /2012 [facility] HEMATOLOGY Lymphocytes 29.9 20.0 - 04/03 Normal [place] 40.0 [facility] HEMATOLOGY Basophils 1.3 0.0 - 1.0 04/03 HI [facility] HEMATOLOGY Lymphocytes # 3.1 1.0 - 5.5 04/03 Normal [facility] HEMATOLOGY Segs-Bands # 6.0 1.5 - 8.1 04/03 Normal [facility] HEMATOLOGY Eosinophils 2.8 0.0 - 4.0 04/03 Normal [facility] HEMATOLOGY Eosinophils # 0.3 0.0 - 0.5 04/03 Normal [facility] HEMATOLOGY Monocytes # 0.8 0.0 - 0.8 04/03 Normal [facility] HEMATOLOGY Basophils # 0.1 0.0 - 0.2 04/03 Normal [facility] HEMATOLOGY Monocytes 7.4 2.0 - 12.0 04/03 Normal [facility] CHEMISTRY Troponin-I <0.02 0.00 - 04/03 Normal [place] 0.40 [facility] CHEMISTRY Total CK 51 12 - 191 04/03 Normal [facility] CHEMISTRY Troponin-T <0.010 0.000 - 04/03 Normal [place] 0.100 [facility] CHEMISTRY Bili Direct 0.1 0.0 - 0.3 04/03 Normal [facility] CHEMISTRY Bili Total 0.4 0.2 - 1.3 04/03 Normal [facility] CHEMISTRY Bili Indirect 0.3 0.0 - 1.0 04/03 Normal [facility] CHEMISTRY ALT 22 0 - 65 04/03 Normal [facility] CHEMISTRY AST 31 0 - 37 04/03 Normal [facility] CHEMISTRY Lipase Lvl 54 73 - 393 04/03 LOW [facility] CHEMISTRY Troponin-I <0.02 0.00 - 04/02 Normal [facility] 0.40 [facility] CHEMISTRY Total CK 24 12 - 191 04/02 Normal [facility] CHEMISTRY AGAP 17.5 10.0 - 04/02 Normal [facility] 20.0 [facility] CHEMISTRY eGFR 88 04/02 NA <sup>5</sup>R [...] Creatinine 0.8 0.5 - 1.4 04/02 Normal [facility] CHEMISTRY Potassium Lvl 3.5 3.5 - 5.1 04/02 Normal [facility] CHEMISTRY Chloride Lvl 97 95 - 109 04/02 Normal [facility] CHEMISTRY Glucose Lvl 163 70 - 99 04/02 HI <sup>7</sup>I nterpretive Medical Data: Adult Center reference range values reflect the clinical guidelines
of the [place] [employer]. CHEMISTRY BUN 2 7 - 22 04/02 LOW [facility] CHEMISTRY Sodium Lvl 136 135 - 145 04/02 Normal [facility] CHEMISTRY Calcium Lvl 8.6 8.5 - 10.5 04/02 Normal [facility] CHEMISTRY CO2 25 24 - 32 04/02 Normal [facility] HEMATOLOGY Platelet 378 133 - 450 04/02 Normal [facility] HEMATOLOGY MCHC 33.4 32.0 - 04/02 Normal [place] 36.0 /2012 [facility] HEMATOLOGY RDW 17.3 11.5 - 04/02 HI [place] 14.5 [facility] HEMATOLOGY MCV 76.0 81.0 - 04/02 LOW [place] 99.0 /2012 [facility] HEMATOLOGY MCH 25.4 27.0 - 04/02 LOW [place] 31.0 /2012 [facility] HEMATOLOGY Hct 34.2 36.0 - 04/02 LOW [place] 48.0 /2012 [facility] HEMATOLOGY RBC 4.50 4.20 - 04/02 Normal [place] 5.40 /2012 [facility] HEMATOLOGY Hgb 11.4 12.0 - 04/02 [facility] [place] 16.0 /2012 [facility] HEMATOLOGY WBC 9.0 3.7 - 10.4 04/02 Normal [facility] HEMATOLOGY MPV 8.4 7.4 - 10.4 04/02 Normal [facility] HEMATOLOGY Microcyte 2+ None Seen 04/02 ABN [place] *ABN* /2012 Medical (04/02/2013 17:09:00) [facility] HEMATOLOGY Basophils # 0.1 0.0 - 0.2 04/02 Normal [facility] HEMATOLOGY Eosinophils # 0.1 0.0 - 0.5 04/02 Normal [facility] HEMATOLOGY Monocytes # 0.7 0.0 - 0.8 04/02 Normal [facility] HEMATOLOGY Lymphocytes # 1.4 1.0 - 5.5 04/02 Normal [facility] HEMATOLOGY Segs-Bands # 6.7 1.5 - 8.1 04/02 Normal [facility] HEMATOLOGY Basophils 1.3 0.0 - 1.0 04/02 HI [facility] HEMATOLOGY Lymphocytes 15.2 20.0 - 04/02 LOW [place] 40.0 /2012 [facility] HEMATOLOGY Segs 74.3 45.0 - 04/02 Normal [place] 75.0 /2012 [facility] HEMATOLOGY Eosinophils 1.6 0.0 - 4.0 04/02 Normal [facility] HEMATOLOGY Monocytes 7.6 2.0 - 12.0 04/02 Normal [facility] BEDSIDE Gluc POC 229 70 - 99 03/09 HI <sup>1</sup>I [facility] GLUCOSE [facility] /2012 nterpretive Medical TESTING Data: Center Upper Reportable Limit: 200 mg/dL. BEDSIDE Comment1 Notify 03/09 NA [facility] GLUCOSE RN/MD Medical TESTING Center CHEMISTRY [...] BUN 7 7 - 22 07 Normal [facility] CHEMISTRY Creatinine 0.8 0.5 - 1.4 03/09 Normal [facility] /2012 [facility] CHEMISTRY Sodium Lvl 138 135 - 145 03/09 [facility] CHEMISTRY Potassium Lvl 4.7 3.5 - 5.1 03/09 [facility] CHEMISTRY Chloride Lvl 104 95 - 109 03/09 Normal [facility] CHEMISTRY CO2 23 24 - 32 03/09 [facility] CHEMISTRY Bili Total 0.2 0.2 - 1.3 03/09 [facility] CHEMISTRY AST 22 0 - 37 / [facility] CHEMISTRY Total Protein 4.8 6.4 - 8.4 03/09 [facility] CHEMISTRY Calcium Lvl 7.4 8.5 - 10.5 03/09 [facility] CHEMISTRY Albumin Lvl 1.9 3.5 - 5.0 / [facility] CHEMISTRY Glucose Lvl 192 70 - 99 07 HI <sup>7</sup>I nterpretive Medical Data: Adult Center reference range values reflect the clinical guidelines
of the [place] [employer]. CHEMISTRY Alk Phos 162 39 - 136 07/ HI [facility] CHEMISTRY ALT 18 0 - 65 07 Normal [facility] CHEMISTRY A/G Ratio 0.7 0.7 - 1.6 03/09 Normal [facility] CHEMISTRY Globulin 2.9 2.0 - 4.0 07/ Normal [facility] CHEMISTRY AGAP 15.7 10.0 - 07/ Normal [place] 20.0 /2012 [facility] CHEMISTRY B/C Ratio 9 6 - 25 07 Normal [facility] HEMATOLOGY Eosinophils 1.9 0.0 - 4.0 07/ Normal [facility] HEMATOLOGY Basophils 1.0 0.0 - 1.0 03/09 Normal [facility] HEMATOLOGY Anisocyte 1+ None Seen 03/09 [facility] *ABN* /2012 [facility] (03/09/2013 01:09:00) [facility] HEMATOLOGY Lymphocytes # 2.0 1.0 - 5.5 07/ Normal [facility] HEMATOLOGY Monocytes # 0.6 0.0 - 0.8 07 Normal [facility] HEMATOLOGY Eosinophils # 0.1 0.0 - 0.5 07/ Normal [facility] HEMATOLOGY Basophils # 0.1 0.0 - 0.2 07/ Normal [facility] HEMATOLOGY Segs-Bands # 4.6 1.5 - 8.1 07 Normal [facility] HEMATOLOGY Segs 62.8 45.0 - 07 Normal [place] 75.0 /2012 [facility] HEMATOLOGY Lymphocytes 26.4 20.0 - 07/04 Normal [place] 40.0 /2012 [facility] HEMATOLOGY Monocytes 7.9 2.0 - 12.0 07/ Normal [facility] HEMATOLOGY RDW 20.7 11.5 - 07/04 HI [place] 14.5 /2012 [facility] HEMATOLOGY Platelet 304 133 - 450 07/ Normal [facility] HEMATOLOGY MPV 8.0 7.4 - 10.4 07 Normal [facility] HEMATOLOGY Hct 24.9 36.0 - 07/ [facility] [place] 48.0 /2013 Medical Center HEMATOLOGY MCV 79.3 81.0 - 07/ [facility] [place] 99.0 /2012 [facility] Center HEMATOLOGY MCH 24.7 27.0 - 07/ [facility] [place] 31.0 /2012 Medical [facility] HEMATOLOGY MCHC 31.2 32.0 - 07/ [facility] [place] 36.0 /2012 [facility] HEMATOLOGY RBC 3.14 4.20 - 07/ [facility] [place] 5.40 /2012 [facility] HEMATOLOGY Hgb 7.8 12.0 - 07/ [facility] [place] 16.0 /2012 [facility] HEMATOLOGY WBC 7.4 3.7 - 10.4 07/ Normal [facility] BEDSIDE Gluc POC 131 70 - 99 03/09 HI <sup>2</sup>I [facility] GLUCOSE ny nterpretive Medical TESTING Data: [facility] Upper Reportable Limit: 200 mg/dL. BEDSIDE Comment1 Notify 03/09 NA [facility] GLUCOSE RN/MD [facility] TESTING Center BEDSIDE Comment1 Notify 03/09 [facility] GLUCOSE RN/MD /2012 [facility] TESTING Center BEDSIDE Gluc POC 155 70 - 99 03/09 [place] <sup>3</sup>I [facility] GLUCOSE [facility] nterpretive Medical TESTING Data: Center Upper Reportable Limit: 200 mg/dL. CHEMISTRY Magnesium Lvl 1.5 1.8 - 2.4 03/08 [facility] CHEMISTRY A/G Ratio 0.7 0.7 - 1.6 03/08 Normal [facility] CHEMISTRY B/C Ratio 8 6 - 25 03/08 Normal [facility] CHEMISTRY Globulin 2.8 2.0 - 4.0 03/08 [facility] CHEMISTRY AGAP 15.8 10.0 - 07/03 [facility] [place] 20.0 [facility] CHEMISTRY Potassium Lvl 3.8 3.5 - 5.1 07/ [facility] CHEMISTRY Chloride Lvl 100 95 - 109 07/ Normal [facility] CHEMISTRY CO2 23 24 - 32 07/ [facility] CHEMISTRY Total Protein 4.8 6.4 - 8.4 07 [facility] CHEMISTRY AST 10 0 - 37 07/ Normal [facility] CHEMISTRY Calcium Lvl 7.6 8.5 - 10.5 03/08 [facility] CHEMISTRY Bili Total 0.3 0.2 - 1.3 03/08 Normal [facility] CHEMISTRY eGFR 88 03/08 NA <sup>5</sup>R [...] values reflect the clinical guidelines
of the [place] [employer]. CHEMISTRY BUN 6 7 - 22 03/08 [facility] CHEMISTRY Creatinine 0.8 0.5 - 1.4 03/08 Normal [facility] CHEMISTRY Sodium Lvl 135 135 - 145 03/08 Normal [facility] CHEMISTRY Alk Phos 173 39 - 136 03/08 HI [facility] CHEMISTRY ALT 16 0 - 65 / Normal [facility]2012 [facility] CHEMISTRY Albumin Lvl 2.0 3.5 - 5.0 03/08 [facility] CHEMISTRY Lipase Lvl 54 73 - 393 03/08 [facility] CHEMISTRY Amylase Lvl 30 25 - 115 / [facility] HEMATOLOGY Basophils # 0.1 0.0 - 0.2 03/08 [facility] HEMATOLOGY Anisocyte 1+ None Seen 07/03 ABN [facility] [place] *ABN* /2012 Medical (03/08/2013 03:01:00) Center HEMATOLOGY Microcyte 1+ None Seen 03/08 [facility] [place] *ABN* /2012 Medical (03/08/2013 03:01:00) Center HEMATOLOGY Eosinophils # 0.2 0.0 - 0.5 07 Normal [facility] HEMATOLOGY Monocytes # 0.8 0.0 - 0.8 03/08 Normal [facility] HEMATOLOGY Lymphocytes 34.2 20.0 - 07 Normal [place] 40.0 /2012 [facility] HEMATOLOGY Segs 53.3 45.0 - 07 Normal [place] 75.0 /2012 [facility] HEMATOLOGY Lymphocytes # 3.0 1.0 - 5.5 07 Normal [facility] HEMATOLOGY Segs-Bands # 4.7 1.5 - 8.1 07 Normal /2012 [facility] HEMATOLOGY Basophils 0.9 0.0 - 1.0 / Normal [facility] HEMATOLOGY Eosinophils 2.6 0.0 - 4.0 07 Normal [facility] HEMATOLOGY Monocytes 9.0 2.0 - 12.0 07/ Normal [facility] HEMATOLOGY Hgb 7.9 12.0 - 07 [facility] [place] 16.0 /2012 [facility] HEMATOLOGY RBC 3.12 4.20 - 07 [facility] [place] 5.40 /2012 [facility] HEMATOLOGY MPV 8.0 7.4 - 10.4 07 Normal [facility] HEMATOLOGY Platelet 294 133 - 450 07 Normal [facility] HEMATOLOGY MCH 25.3 27.0 - 07 [facility] [place] 31.0 /2012 [facility] HEMATOLOGY MCV 79.7 81.0 - 07/03 [facility] [place] 99.0 /2012 [facility] HEMATOLOGY Hct 24.9 36.0 - 07 [facility] [place] 48.0 /2012 [facility] HEMATOLOGY WBC 8.8 3.7 - 10.4 07 Normal [facility] HEMATOLOGY RDW 21.4 11.5 - 07/03 [facility] [place] 14.5 /2012 [facility] HEMATOLOGY MCHC 31.8 32.0 - 07/03 [facility] [place] 36.0 /2012 [facility] CHEMISTRY Troponin-I <0.02 0.00 - 07/02 Normal [place] 0.40 [facility] CHEMISTRY Total CK 26 12 - 191 07/ Normal [facility] CHEMISTRY A/G Ratio 0.6 0.7 - 1.6 07/ LOW [facility] CHEMISTRY Bili Total 0.6 0.2 - 1.3 07/ Normal [facility] CHEMISTRY Bili Direct 0.3 0.0 - 0.3 07/ Normal [facility] CHEMISTRY Alk Phos 190 39 - 136 07 HI [facility] CHEMISTRY Total Protein 5.2 6.4 - 8.4 07/ [facility] CHEMISTRY Globulin 3.2 2.0 - 4.0 07/ Normal [facility] CHEMISTRY Bili Indirect 0.3 0.0 - 1.0 07/ Normal [facility] CHEMISTRY AST 11 0 - 37 07/ Normal [facility] CHEMISTRY Albumin Lvl 2.0 3.5 - 5.0 07 [facility] CHEMISTRY ALT 19 0 - 65 07 Normal [facility] CHEMISTRY Amylase Lvl 26 25 - 115 07/ Normal [facility] CHEMISTRY Lipase Lvl 49 73 - 393 07/ LOW [facility] HEMATOLOGY MPV 8.3 7.4 - 10.4 07/ Normal [facility] HEMATOLOGY MCH 24.7 27.0 - 07/ [facility] [place] 31.0 /2012 Medical [facility] HEMATOLOGY MCHC 32.6 32.0 - 07/ Normal [place] 36.0 /2012 Medical [facility] HEMATOLOGY RDW 20.1 11.5 - 07/ [facility] [place] 14.5 /2012 Medical [facility] HEMATOLOGY Platelet 362 133 - 450 07/ Normal [facility] HEMATOLOGY MCV 75.7 81.0 - 07/ [facility] [place] 99.0 /2012 Medical [facility] HEMATOLOGY Hgb 8.8 12.0 - 07/ [facility] [place] 16.0 /2012 Medical [facility] HEMATOLOGY Hct 26.9 36.0 - 07/ [facility] [place] 48.0 /2012 [facility] HEMATOLOGY RBC 3.56 4.20 - 07/ [facility] [place] 5.40 /2012 Medical [facility] HEMATOLOGY WBC 11.1 3.7 - 10.4 07/ [facility] Medical [facility] HEMATOLOGY Lymphocytes # 2.4 1.0 - 5.5 07/ [facility] /2013 [facility] HEMATOLOGY Hypochrom Slight None Seen 03/07 Normal [facility] (03/07/2013 07:43:59) [facility] HEMATOLOGY Microcyte 2+ None Seen 03/07 [facility] Medical (03/07/2013 07:43:59) [facility] HEMATOLOGY Anisocyte 1+ None Seen 03/07 [facility] *ABN* Medical (03/07/2013 07:43:59) Center HEMATOLOGY Basophils # 0.1 0.0 - 0.2 03/07 Normal [facility] HEMATOLOGY Polychrom Slight None Seen 03/07 Normal [facility] (03/07/2013 07:43:59) [facility] HEMATOLOGY Basophils 0.8 0.0 - 1.0 03/07 Normal [facility] HEMATOLOGY Eosinophils 1.3 0.0 - 4.0 03/07 Normal [facility] HEMATOLOGY Segs-Bands # 7.6 1.5 - 8.1 03/07 [facility] HEMATOLOGY Monocytes 8.1 2.0 - 12.0 03/07 Normal [facility] HEMATOLOGY Monocytes # 0.9 0.0 - 0.8 03/07 HI [facility] HEMATOLOGY Eosinophils # 0.1 0.0 - 0.5 03/07 [facility] HEMATOLOGY Target Cell Slight None Seen 03/07 [facility] *ABN* Medical (03/07/2013 07:43:59) [facility] HEMATOLOGY Plt Morph Normal 03/07 [facility] (03/07/2013 07:43:59) [facility] HEMATOLOGY Lymphocytes 22.0 20.0 - 03/07 [facility] 40.0 [facility] HEMATOLOGY Segs 67.8 45.0 - 07 Normal [facility] 75.0 [facility] CHEMISTRY Lactic Acid 1.7 0.5 - 2.2 03/07 Normal [facility] Lvl [facility] CHEMISTRY Total CK 21 12 - 191 03/07 Normal [facility] CHEMISTRY Troponin-I <0.02 0.00 - 07 Normal [facility] 0.40 /2012 [facility] CHEMISTRY eGFR 104 03/07 NA <sup>6</sup>R [...] CO2 27 24 - 32 03/07 Normal [facility] CHEMISTRY Potassium Lvl 3.6 3.5 - 5.1 03/07 [facility] CHEMISTRY Chloride Lvl 99 95 - 109 03/07 [facility] CHEMISTRY Sodium Lvl 134 135 - 145 07 [facility] CHEMISTRY BUN 5 7 - 22 07 [facility] CHEMISTRY Creatinine 0.7 0.5 - 1.4 03/07 Normal [facility] /2012 [facility] CHEMISTRY Glucose Lvl 233 70 - 99 03/07 HI <sup>9</sup>I nterpretive Medical Data: Adult Center reference range values reflect the clinical guidelines
of the [place] [employer]. CHEMISTRY Calcium Lvl 7.7 8.5 - 10.5 03/07 [facility] CHEMISTRY AGAP 11.6 10.0 - 07 [facility] 20.0 /2012 [facility] CHEMISTRY Temp Art 37.0 03/07 NA [facility] CHEMISTRY pH Art 7.41 7.35 - 07 [facility] 7.45 /2012 [facility] CHEMISTRY pCO2 Art 34 35 - 45 07 [facility] CHEMISTRY O2 Sat Art 97.5 95.0 - 07/ [facility] 100.0 /2012 [facility] CHEMISTRY HCO3 Art 22 22 - 26 07 [facility] CHEMISTRY BE Art -2 -2-2 - 2 03/07 [facility] /2013 Medical Center CHEMISTRY pO2 [...] pH Mark 7.46 7.28 - 03/07 HI [facility] 7.42 /2012 Medical Center CHEMISTRY Lactic Acid 2.6 0.5 - 2.2 03/07 HI [facility] Lvl /2012 Medical Center CHEMISTRY Phosphorus 3.1 2.5 - 4.5 03/07 Normal [facility] CHEMISTRY Magnesium Lvl 1.6 1.8 - 2.4 03/07 LOW [facility] CHEMISTRY Total CK 31 12 - 191 03/07 Normal [facility] CHEMISTRY Troponin-I <0.02 0.00 - 03/07 Normal [facility] 0.40 /2012 Medical Center CHEMISTRY U Preg Negative Negative 03/06 Normal [facility] (03/06/2013 18:25:00) Medical Center URINALYSIS UA Amorph Occasional /HPF None Seen 03/06 ABN [facility] *ABN* /2012 Medical (03/06/2013 18:25:00) Center URINALYSIS UA Mucus Few /LPF None Seen 03/06 Normal [facility] (03/06/2013 18:25:00) Medical Center URINALYSIS Micro? Performed 03/06 Normal [facility] (03/06/2013 18:25:00) Medical Center URINALYSIS UA Sq Epi Moderate /LPF Few 03/06 ABN [facility] *ABN* /2012 Medical (03/06/2013 18:25:00) Center URINALYSIS UA WBC 0-2 /HPF None Seen 03/06 Normal [facility] (03/06/2013 18:25:00) Medical Center URINALYSIS UA RBC None Seen 0 - 2 03/06 Normal [facility] (03/06/2013 18:25:00) Medical Center URINALYSIS UA Bacteria Few /HPF None Seen 03/06 Normal [facility] (03/06/2013 18:25:00) Medical Center URINALYSIS UA Bili Negative Negative 03/06 NA [facility] *NA* Medical (03/06/2013 18:25:00) Center URINALYSIS UA 0.2 0.1 - 1.0 03/06 Normal [facility] Urobilinogen /2012 Medical Center URINALYSIS UA Nitrite Negative Negative 03/06 Normal [facility] (03/06/2013 18:25:00) Medical Center URINALYSIS UA Leuk Est Trace Negative 03/06 ABN [facility] *ABN* Medical (03/06/2013 18:25:00) Center URINALYSIS UA Blood Negative Negative 03/06 Normal [facility] (03/06/2013 18:25:00) Medical Center UR[facility]ALYSIS UA Ketones 40 mg/[facility] 18:25:00) Center URINALYSIS UA Turbidity Clear Clear 03/06 Normal [facility] (03/06/2013 18:25:00) Medical Center URINALYSIS UA Color Yellow Yellow 03/06 NA [facility] *NA* Medical (03/06/2013 18:25:00) Center URINALYSIS UA Spec Grav 1.015 <=1.030 03/06 Normal [facility] URINALYSIS UA Protein Negative Negative 03/06 Normal [facility] (03/06/2013 18:25:00) Medical Center URINALYSIS UA Glucose 250 mg/dL [facility] 18:25:00) Center URINALYSIS UA pH 7.5 5.0 - 8.0 03/06 Normal [facility] BEDSIDE Comment1 Notify 12/07 NA [facility] GLUCOSE RN/MD /2012 Medical TESTING Center BEDSIDE Gluc POC 64 70 - 99 12/07 LOW <sup>3</sup>I [facility] Data: Center Upper Reportable Limit: 200 mg/dL. BEDSIDE Gluc POC 50 70 - 99 12/07 LOW <sup>4</sup>I [facility] Data: Center Upper Reportable Limit: 200 mg/dL. BEDSIDE Comment1 Notify 12/07 NA [facility] GLUCOSE RN/ /2012 Medical TESTING Center BEDSIDE Gluc POC 45 70 - 99 12/07 LOW <sup>5</sup>I [facility] GLUCOSE [facility] /2012 nterpretive Medical TESTING Data: Center Upper Reportable Limit: 200 mg/dL. BEDSIDE Comment1 Notify 12/07 NA [facility] GLUCOSE RN/ /2012 Medical TESTING Center CHEMISTRY eGFR 109 12/07 NA <sup>7</sup>R [facility] esult Medical Comment: The Center eGFR [...] Lvl 8.3 8.5 - 10.5 12/07 LOW [facility] CHEMISTRY AGAP 12.8 10.0 - 12/07 [facility] 20.0 [facility] CHEMISTRY BUN 2 7 - 22 12/07 LOW [facility] CHEMISTRY Glucose Lvl 95 70 - 99 12/07 Normal <sup>10</sup> Interpretive Medical Data: Adult Center reference range values reflect the clinical guidelines
of the [place] [employer]. CHEMISTRY Potassium Lvl 3.8 3.5 - 5.1 12/07 Normal [facility] CHEMISTRY Creatinine 0.6 0.5 - 1.4 12/07 Normal [facility] Lvl [facility] CHEMISTRY Sodium Lvl 140 135 - 145 12/07 Normal [facility] CHEMISTRY Chloride Lvl 105 95 - 109 12/07 Normal [facility] CHEMISTRY CO2 26 24 - 32 12/07 Normal [facility] BEDSIDE Comment2 Verify 12/06 NA [facility] GLUCOSE w/Lab /2012 [facility] TESTING Center BEDSIDE Comment2 Verify 12/06 NA [facility] GLUCOSE w/Lab /2012 [facility] TESTING Center CHEMISTRY AGAP 13.5 10.0 - 12/06 Normal [facility] 20.0 /2012 [facility] CHEMISTRY Calcium Lvl 8.1 8.5 - 10.5 12/06 [facility] CHEMISTRY CO2 28 24 - 32 12/06 Normal [facility] CHEMISTRY Chloride Lvl 101 95 - 109 12/06 Normal [facility] CHEMISTRY eGFR 104 12/06 NA <sup>8</sup>R [...] values reflect the clinical guidelines
of the [place] [employer]. CHEMISTRY BUN 2 7 - 22 12/06 [facility] CHEMISTRY Creatinine 0.7 0.5 - 1.4 12/06 Normal [facility] CHEMISTRY Sodium Lvl 139 135 - 145 12/06 [facility] CHEMISTRY Potassium Lvl 3.5 3.5 - 5.1 12/06 Normal [facility] CHEMISTRY Lipase Lvl 62 73 - 393 12/06 [facility] CHEMISTRY Alk Phos 92 39 - 136 / Normal [facility] CHEMISTRY Albumin Lvl 2.7 3.5 - 5.0 / LOW [facility] CHEMISTRY Total Protein 5.8 6.4 - 8.4 / LOW [facility] CHEMISTRY Globulin 3.1 2.0 - 4.0 / Normal [facility] CHEMISTRY A/G Ratio 0.9 0.7 - 1.6 / Normal [facility] CHEMISTRY AST 74 0 - 37 / HI [facility] CHEMISTRY ALT 50 0 - 65 / Normal [facility] CHEMISTRY Bili Indirect 0.1 0.0 - 1.0 12/06 Normal [facility] CHEMISTRY Bili Total 0.2 0.2 - 1.3 12/06 Normal [facility] CHEMISTRY Bili Direct 0.1 0.0 - 0.3 12/06 Normal [facility] CHEMISTRY eGFR 109 12/05 NA <sup>9</sup>R [...] values reflect the clinical guidelines
of the [place] [employer]. CHEMISTRY Creatinine 0.6 0.5 - 1.4 12/05 Normal [place] Lvl /2012 Medical [facility] CHEMISTRY BUN 1 7 - 22 04 LOW Medical [facility] CHEMISTRY Chloride Lvl 102 95 - 109 04 Normal [facility] CHEMISTRY Potassium Lvl 3.3 3.5 - 5.1 12/05 [facility] CHEMISTRY Sodium Lvl 140 135 - 145 12/05 Normal [facility] CHEMISTRY Calcium Lvl 7.9 8.5 - 10.5 12/05 [facility] CHEMISTRY CO2 29 24 - 32 04 Normal [facility] CHEMISTRY AGAP 12.3 10.0 - 04 Normal [place] 20.0 [facility] CHEMISTRY Ca Norm mgdL 4.84 4.65 - 12/03 Normal [place] 01.23 [facility] CHEMISTRY Ca Ion mgdL 4.84 4.65 - 12/03 Normal [place] 5. [facility] CHEMISTRY Ca Ion 1.21 1.16 - 12/03 Normal [place] 10.05 [facility] CHEMISTRY Ca Norm 1.21 1.16 - 12/03 Normal [place] 1. [facility] CHEMISTRY Magnesium Lvl 1.8 1.8 - 2.4 12/03 Normal [facility] CHEMISTRY Phosphorus 3.4 2.5 - 4.5 12/03 Normal [facility] HEMATOLOGY Lymphocytes # 1.8 1.0 - 5.5 12/03 Normal [facility] HEMATOLOGY Lymphocytes 23.6 20.0 - 12/03 Normal [place] 40.0 [facility] HEMATOLOGY Eosinophils 2.9 0.0 - 4.0 12/03 Normal [facility] HEMATOLOGY Monocytes 9.1 2.0 - 12.0 12/03 Normal [facility] HEMATOLOGY Basophils 0.6 0.0 - 1.0 12/03 Normal [facility] HEMATOLOGY Segs-Bands # 5.0 1.5 - 8.1 12/03 Normal [facility] HEMATOLOGY Segs 63.8 45.0 - 12/03 Normal [place] 75.0 /2012 [facility] HEMATOLOGY Monocytes # 0.7 0.0 - 0.8 12/03 Normal [facility] HEMATOLOGY Eosinophils # 0.2 0.0 - 0.5 12/03 Normal [facility] HEMATOLOGY Microcyte 1+ None Seen 12/03 ABN [facility] *ABN* /2012 Medical (12/03/2012 01:02:00) Center HEMATOLOGY WBC 7.8 3.7 - 10.4 12/03 Normal [facility] HEMATOLOGY Hct 27.8 36.0 - 12/03 LOW [facility] 48.0 /2012 [facility] HEMATOLOGY MPV 8.5 7.4 - 10.4 12/03 Normal [facility] HEMATOLOGY MCHC 32.4 32.0 - 12/03 Normal [facility] 36.0 /2012 [facility] HEMATOLOGY RDW 18.9 11.5 - 12/03 HI [facility] 14.5 /2012 [facility] HEMATOLOGY MCH 24.6 27.0 - 12/03 LOW [facility] 31.0 /2012 [facility] HEMATOLOGY RBC 3.66 4.20 - 12/03 LOW [facility] 5.40 /2012 [facility] HEMATOLOGY MCV 75.9 81.0 - 12/03 LOW [facility] 99.0 /2012 [facility] HEMATOLOGY Platelet 224 133 - 450 12/03 Normal [facility] HEMATOLOGY Hgb 9.0 12.0 - 12/03 LOW [facility] 16.0 /2012 [facility] Microbiolog Culture: 12/02 [facility] y Blood /2012 [facility] Microbiolog Culture: MRSA 12/02 [facility] y /2012 [facility] Microbiolog Culture: 12/02 [facility] y Resistant [facility] Center Screen CHEMISTRY Ketone 1.42 <=0.27 12/02 [facility] Quantitative [facility] URINALYSIS UA WBC 1 0 - 5 12/02 Normal [facility] URINALYSIS UA RBC <1 0 - 2 12/02 Normal [facility] URINALYSIS UA 0.1 - 1.0 12/02 NA [facility] Urobilinogen /2012 [facility] URINALYSIS UA Sq Epi Moderate /LPF Few 12/02 ABN [facility] *ABN* Medical (12/02/2012 04:02:55) Center URINALYSIS UA Leuk Est Negative Negative 12/02 Normal [facility] (12/02/2012 04:02:55) Medical Center URINALYSIS UA Nitrite Negative Negative 12/02 Normal [facility] (12/02/2012 04:02:55) Medical Center URINALYSIS UA Mucus Few /LPF None Seen 12/02 [facility] *NA* /2012 Medical (12/02/2012 04:02:55) Center URINALYSIS UA Ketones 40 mg/dL Negative 12/02 ABN [place] *ABN* Medical (12/02/2012 04:02:55) Center URINALYSIS UA Blood Negative Negative 12/02 Normal [facility] (12/02/2012 04:02:55) Medical Center URINALYSIS UA Glucose >=1000 mg/dL Negative 12/02 ABN [facility] *ABN* Medical (12/02/2012 04:02:55) Center URINALYSIS UA Bili Negative Negative 12/02 NA [facility] *NA* Medical (12/02/2012 04:02:55) Center URINALYSIS UA Protein Negative mg/dL Negative 12/02 Normal [facility] (12/02/2012 04:02:55) Medical Center URINALYSIS UA Turbidity Clear Clear 12/02 Normal [facility] (12/02/2012 04:02:55) Medical Center URINALYSIS UA pH 5.5 5.0 - 8.0 12/02 Normal [facility] URINALYSIS UA Spec Grav 1.010 <=1.030 12/02 Normal [facility] URINALYSIS UA Color Yellow Yellow 12/02 NA [facility] *NA* Medical (12/02/2012 04:02:55) Center HEMATOLOGY MPV 8.9 7.4 - 10.4 12/02 Normal [facility] HEMATOLOGY Hct 27.9 36.0 - 12/02 LOW [place] 48.0 /2012 [facility] HEMATOLOGY MCV 76.1 81.0 - 12/02 LOW [facility] 99.0 /2012 [facility] HEMATOLOGY MCH 25.2 27.0 - 12/02 LOW [place] 31.0 /2012 [facility] HEMATOLOGY MCHC 33.2 32.0 - 12/02 Normal [facility] 36.0 [facility] HEMATOLOGY RDW 19.3 11.5 - 12/02 HI [place] 14.5 [facility] HEMATOLOGY Platelet 224 133 - 450 12/02 Normal [facility] HEMATOLOGY WBC 8.6 3.7 - 10.4 12/02 Normal [facility] HEMATOLOGY Hgb 9.3 12.0 - 12/02 LOW [place] 16.0 /2012 [facility] HEMATOLOGY RBC 3.67 4.20 - 12/02 LOW [place] 5.40 /2012 [facility] HEMATOLOGY Segs-Bands # 6.4 1.5 - 8.1 12/02 Normal [facility] HEMATOLOGY Lymphocytes # 1.5 1.0 - 5.5 12/02 Normal [facility] HEMATOLOGY Eosinophils 0.6 0.0 - 4.0 12/02 Normal [facility] HEMATOLOGY Basophils 0.7 0.0 - 1.0 12/02 Normal [facility] HEMATOLOGY Lymphocytes 17.3 20.0 - 12/02 LOW [place] 40.0 [facility] HEMATOLOGY Monocytes # 0.7 0.0 - 0.8 12/02 Normal [facility] HEMATOLOGY Microcyte 1+ None Seen 12/02 ABN [place] *ABN* /2012 Medical (12/02/2012 04:02:51) [facility] HEMATOLOGY Eosinophils # 0.1 0.0 - 0.5 12/02 Normal [facility] HEMATOLOGY Basophils # 0.1 0.0 - 0.2 12/02 Normal [facility] HEMATOLOGY Segs 73.8 45.0 - 12/02 Normal [place] 75.0 [facility] HEMATOLOGY Monocytes 7.6 2.0 - 12.0 12/02 Normal [facility] Microbiolog Culture: 12/02 y [facility] CHEMISTRY POC A Glu 305 70 - 99 12/02 HI [facility] CHEMISTRY POC A Hct 29.0 36.0 - 12/02 LOW [facility] 48.0 [facility] CHEMISTRY POC A O2 Sat 97.0 95.0 - 12/02 Normal 100.0 [facility] CHEMISTRY POC A K 3.4 3.5 - 5.1 12/02 LOW [facility] CHEMISTRY POC A Na 130 135 - 145 12/02 LOW [facility] CHEMISTRY POC A PCO2 38 35 - 45 12/02 Normal [facility] CHEMISTRY POC A BE 2 -2-2 - 2 12/02 Normal [facility] CHEMISTRY POC A HCO3 26 22 - 26 12/02 Normal [facility] CHEMISTRY POC A Source ART 12/02 NA [facility] CHEMISTRY POC A PO2 89 80 - 100 12/02 Normal [facility] CHEMISTRY POC A pH 7.44 7.35 - 12/02 Normal [facility] [place] 7.45 [facility] CHEMISTRY POC A Temp 37.0 12/02 NA [facility] CHEMISTRY POC A Ca Ion 1.12 1.16 - 12/02 LOW [place] 1.30 [facility] CHEMISTRY POC A LA 0.8 0.5 - 2.2 12/02 Normal [facility] CHEMISTRY Magnesium Lvl 1.9 1.8 - 2.4 12/02 Normal [facility] CHEMISTRY Phosphorus 2.7 2.5 - 4.5 12/02 Normal [facility] CHEMISTRY Ca Norm mgdL 4.36 4.65 - 12/02 LOW [place] 5. [facility] CHEMISTRY Ca Ion 1.14 1.16 - 12/02 LOW [place] 1.30 [facility] CHEMISTRY Ca Ion mgdL 4.56 4.65 - 12/02 LOW [place] 5. [facility] CHEMISTRY Ca Norm 1.09 1.16 - 12/02 LOW [place] 1. Medical [facility] HEMATOLOGY Platelet 223 133 - 450 12/02 Normal [facility] HEMATOLOGY MPV 9.2 7.4 - 10.4 12/02 Normal [facility] HEMATOLOGY MCHC 32.3 32.0 - 12/02 Normal [place] 36.0 [facility] HEMATOLOGY RDW 19.2 11.5 - 12/02 HI [place] 14.5 Medical Center HEMATOLOGY WBC 7.6 3.7 - 10.4 12/02 Normal [facility] HEMATOLOGY Hgb 9.2 12.0 - 12/02 [facility] [place] 16.0 [facility] HEMATOLOGY Hct 28.6 36.0 - 12/02 LOW [place] 48.0 /2012 [facility] HEMATOLOGY MCV 76.3 81.0 - 12/02 [facility] [place] 99.0 /2012 Medical Center HEMATOLOGY MCH 24.6 27.0 - 12/02 LOW [place] 31.0 [facility] HEMATOLOGY RBC 3.74 4.20 - 12/02 LOW [place] 5.40 [facility] HEMATOLOGY Microcyte 1+ None Seen 12/02 ABN [place] *ABN* /2012 Medical (12/02/2012 03:00:00) Center HEMATOLOGY Basophils # 0.1 0.0 - 0.2 12/02 Normal Medical Center HEMATOLOGY Monocytes # 0.6 0.0 - 0.8 12/02 Normal [facility] HEMATOLOGY Lymphocytes # 1.9 1.0 - 5.5 12/02 Normal [facility] HEMATOLOGY Segs-Bands # 5.0 1.5 - 8.1 12/02 Normal [facility] HEMATOLOGY Segs 65.5 45.0 - 12/02 Normal [place] 75.0 /2012 [facility] HEMATOLOGY Lymphocytes 25.0 20.0 - 12/02 Normal [place] 40.0 /2012 [facility] HEMATOLOGY Monocytes 8.4 2.0 - 12.0 12/02 Normal [facility] HEMATOLOGY Eosinophils 0.4 0.0 - 4.0 12/02 Normal [facility] HEMATOLOGY Basophils 0.7 0.0 - 1.0 12/02 Normal [facility] CHEMISTRY Magnesium Lvl 2.0 1.8 - 2.4 12/01 Normal [facility] CHEMISTRY Ca Norm mgdL 4.48 4.65 - 12/01 LOW [facility] 5. [facility] CHEMISTRY Ca Ion mgdL 4.68 4.65 - 12/01 Normal [facility] 5. [facility] CHEMISTRY Ca Ion 1.17 1.16 - 12/01 Normal [facility] 1. [facility] CHEMISTRY Ca Norm 1.12 1.16 - 12/01 LOW [facility] 1. [facility] CHEMISTRY Phosphorus 2.7 2.5 - 4.5 12/01 Normal [facility] URINALYSIS UA 0.1 - 1.0 11/30 NA [facility] Urobilinogen [facility] URINALYSIS UA Mucus Few /LPF None Seen 11/30 NA [facility] *NA* /2012 Medical (11/30/2012 17:41:33) Center URINALYSIS UA WBC <1 0 - 5 11/30 Normal [facility] URINALYSIS UA Sq Epi Moderate /LPF Few 11/30 ABN [facility] *ABN* Medical (11/30/2012 17:41:33) Center URINALYSIS UA Protein Negative mg/dL Negative 11/30 Normal [facility] (11/30/2012 17:41:33) Medical Center URINALYSIS UA pH 5.0 5.0 - 8.0 11/30 Normal [facility] URINALYSIS UA Spec Grav 1.004 <=1.030 11/30 Normal Medical Center URINALYSIS UA Turbidity Clear Clear 11/30 Normal [facility] (11/30/2012 17:41:33) Medical Center URINALYSIS UA Color Light Yellow Yellow 11/30 NA [facility] *NA* Medical (11/30/2012 17:41:33) Center URINALYSIS UA Leuk Est Negative Negative 11/30 Normal [facility] (11/30/2012 17:41:33) Medical Center URINALYSIS UA Nitrite Negative Negative 11/30 Normal [facility] (11/30/2012 17:41:33) Medical Center URINALYSIS UA Blood Negative Negative 11/30 Normal [facility] (11/30/2012 17:41:33) Medical Center URINALYSIS UA Bili Negative Negative 11/30 NA [facility] *NA* Medical (11/30/2012 17:41:33) Center URINALYSIS UA Ketones 10 mg/dL Negative 11/30 ABN [facility] *ABN* Medical (11/30/2012 17:41:33) Center URINALYSIS UA Glucose Negative mg/dL Negative 11/30 NA [facility] *NA* Medical (11/30/2012 17:41:33) Center CHEMISTRY Ketone 1.65 <=0.27 11/30 HI [facility] Center HEMATOLOGY PT 14.1 12.0 - 11/30 Normal [facility] 14.7 Medical Center HEMATOLOGY PTT 28.1 22.9 - 11/30 Normal <sup>18</sup> [facility] 35.8 Interpretive Medical Data: Heparin Center Therapeutic Range: 57 - 92 Seconds HEMATOLOGY INR 1.07 0.85 - 11/30 Normal <sup>16</sup> [facility] 1. Interpretive Medical Data: Center RECOMMENDED [...] ranges. CHEMISTRY U Chloride 134 11/30 NA [facility] CHEMISTRY Bili Total 0.4 0.2 - 1.3 11/30 Normal [facility] CHEMISTRY Total Protein 6.3 6.4 - 8.4 11/30 LOW [facility] CHEMISTRY Albumin Lvl 2.9 3.5 - 5.0 11/30 LOW [facility] CHEMISTRY Alk Phos 127 39 - 136 11/30 Normal [facility] CHEMISTRY Bili Direct 0.2 0.0 - 0.3 11/30 Normal [facility] CHEMISTRY AST 22 0 - 37 11/30 Normal [facility] CHEMISTRY ALT 20 0 - 65 11/30 Normal [facility] CHEMISTRY A/G Ratio 0.9 0.7 - 1.6 11/30 Normal [facility] CHEMISTRY Bili Indirect 0.2 0.0 - 1.0 11/30 Normal [facility] CHEMISTRY Globulin 3.4 2.0 - 4.0 11/30 Normal [facility] HEMATOLOGY Basophils # 0.1 0.0 - 0.2 11/30 Normal [facility] HEMATOLOGY PT 13.9 12.0 - 11/30 Normal [facility] 14.7 [facility] HEMATOLOGY PTT 26.5 22.9 - 11/30 Normal <sup>19</sup> [facility] 35.8 /2012 Interpretive Medical Data: Heparin Center Therapeutic Range: 57 - 92 Seconds HEMATOLOGY INR 1.05 0.85 - 11/30 Normal <sup>17</sup> [facility] 09.22 Interpretive Medical Data: Center RECOMMENDED RANGES FOR PROTIME INR:
2.0-3.0 for most medical and surgical thromboemboli c states.
2.5-3.5 for artificial heart valves and recurrent embolism.<br/ >
INR SHOULD BE USED ONLY FOR PATIENTS ON STABLE ANTICOAGULANT THERAPY. CHEMISTRY POC V Temp 37.0 11/29 NA [facility] CHEMISTRY POC V Ion Ca 1.16 1.16 - 11/29 Normal [facility] . [facility] CHEMISTRY POC V K 3.5 3.5 [...] PCO2 26 35 - 45 03/26 CRIT [facility] CHEMISTRY POC A PO2 115 80 - 100 11/29 HI [facility] CHEMISTRY POC A pH 7.33 7.35 - 11/29 [facility] BACTERIAL - MRSA by PCR Positive 1, 2 11/29 ABN <sup>1</sup>R [facility] SEROLOGY *ABN* /2012 esult Medical (11/29/2012 [...] testing. CHEMISTRY Temp Art 37.0 11/29 NA [facility] CHEMISTRY O2 Sat Art 96.6 95.0 - 11/29 Normal [facility] 100.0 [facility] CHEMISTRY pO2 Art 96 80 - 100 11/29 Normal [facility] CHEMISTRY pCO2 Art 25 35 - 45 11/29 CRIT <sup>15</sup> Result Medical Comment: Center Critical Result(s) called to jose rodriguez at _11/29/2012 12:25:56 CDT byandrey_. Read back OK. CHEMISTRY BE Art -12 -2-2 - 2 11/29 LOW [facility] CHEMISTRY HCO3 Art 12 - 11/29 [facility] CHEMISTRY pH Art 7.30 7.35 - 11/29 [facility] 7 [facility] CHEMISTRY A/G Ratio 0.8 0.7 - 1.6 11/29 Normal [facility] CHEMISTRY Globulin 4.0 2.0 - 4.0 11/29 Normal [facility] CHEMISTRY AST 17 0 - 37 11/29 Normal [facility] CHEMISTRY Bili Total 0.8 0.2 - 1.3 11/29 Normal [facility] CHEMISTRY B/C Ratio 14 6 - 25 11/29 Normal [facility] CHEMISTRY Total Protein 7.4 6.4 - 8.4 11/29 Normal [facility] CHEMISTRY ALT 22 0 - 65 11/29 Normal [facility] CHEMISTRY Albumin Lvl 3.4 3.5 - 5.0 11/29 LOW [facility] CHEMISTRY Alk Phos 126 39 - 136 11/29 Normal [facility] CHEMISTRY Troponin-I <0.02 0.00 - 11/29 Normal [facility] 0.40 [facility] CHEMISTRY Lipase Lvl 70 73 - 393 11/29 LOW [facility] CHEMISTRY B/C Ratio 10 6 - 25 11/29 Normal [facility] HEMATOLOGY Hypochrom Slight None Seen 11/29 Normal [facility] (11/28/2012 21:00:20) Medical Center HEMATOLOGY Polychrom Slight None Seen 11/29 Normal [facility] (11/28/2012 21:00:20) Medical Center HEMATOLOGY Anisocyte 1+ None Seen 11/29 [facility] *ABN* Medical (11/28/2012 21:00:20) Center HEMATOLOGY Large Plt Slight None Seen 11/29 [facility] *ABN* Medical (11/28/2012 21:00:20) Center HEMATOLOGY Eosinophils # 0.2 0.0 - 0.5 11/29 Normal [facility] CHEMISTRY U Preg Negative Negative 11/29 Normal [facility] (11/28/2012 20:55:00) Medical Center URINALYSIS UA Blood Negative Negative 11/29 Normal [facility] (11/28/2012 20:55:00) [facility] URINALYSIS UA Bili Small 6 Negative 11/29 ABN <sup>6</sup>R [facility] *ABN* esult Medical (11/28/2012 20:55:00) Comment: Center Interpret positive bilirubin results with caution. Confirmatory testing
n ot possible due to the unavailabilit y of reagent. Correlation with
seru m chemistry results recommended. URINALYSIS UA Protein Negative Negative 11/29 Normal [facility] (11/28/2012 20:55:00) [facility] URINALYSIS Micro? Not Indicated 11/29 Normal [facility] (11/28/2012 20:55:00) Medical Center URINALYSIS UA Glucose Negative Negative 11/29 Normal [facility] (11/28/2012 20:55:00) Medical Center URINALYSIS UA Ketones 40 mg/dL Negative 11/29 ABN [facility] *ABN* [facility] (11/28/2012 20:55:00) Center URINALYSIS UA Leuk Est Negative Negative 11/29 Normal [facility] (11/28/2012 20:55:00) [facility] URINALYSIS UA 0.2 0.1 - 1.0 11/29 Normal [facility] Urobilinogen [facility] URINALYSIS UA Nitrite Negative Negative 11/29 Normal [facility] (11/28/2012 20:55:00) [facility] URINALYSIS UA Spec Grav 1.010 <=1.030 11/29 Normal [facility] URINALYSIS UA pH 6.0 5.0 - 8.0 11/29 Normal [facility] URINALYSIS UA Color Yellow Yellow 11/29 NA [facility] *NA* [facility] (11/28/2012 20:55:00) Center URINALYSIS UA Turbidity Clear Clear 11/29 Normal [facility] (11/28/2012 20:55:00) Medical Center BEDSIDE Comment1 Notify 11/17 NA [facility] GLUCOSE MARTÍNEZ/ Medical TESTING Center BEDSIDE Gluc POC 219 70 - 99 11/17 HI <sup>1</sup>I [facility] TEST[facility] Data: Center Upper Reportable Limit: 200 mg/dL. BEDSIDE Gluc POC 255 70 - 99 11/17 HI <sup>2</sup>I [facility] GLUCOSE [facility] nterpretive Medical TESTING Data: [facility] Upper Reportable Limit: 200 mg/dL. BEDSIDE Comment1 Notify 11/17 [facility] GLUCOSE MARTÍNEZ/ Medical TESTING Center CHEMISTRY Troponin-T <0.010 0.000 - 11/17 Normal [facility] 0.100 /2012 [facility] CHEMISTRY Troponin-I <0.02 0.00 - 11/17 Normal [facility] 0.40 [facility] CHEMISTRY Total CK 52 12 - 191 11/17 Normal [facility] CHEMISTRY eGFR 109 11/17 NA <sup>4</sup>R [...] Calcium Lvl 7.7 8.5 - 10.5 11/17 [facility] CHEMISTRY AGAP 16.2 10.0 - 11/17 [facility] 20.0 [facility] CHEMISTRY Chloride Lvl 100 95 - 109 11/17 [facility] CHEMISTRY Potassium Lvl 4.2 3.5 - 5.1 11/17 Normal [facility] CHEMISTRY Sodium Lvl 134 135 - 145 11/17 [facility] CHEMISTRY CO2 22 24 - 32 11/17 [facility] CHEMISTRY Creatinine 0.6 0.5 - 1.4 11/17 Normal [facility] /2012 [facility] CHEMISTRY BUN 4 7 - 22 11/17 [facility] CHEMISTRY Glucose Lvl 237 70 - 99 11/17 HI <sup>6</sup>I nterpretive Medical Data: [facility] Center reference range values reflect the clinical guidelines
of the [place] [employer]. CHEMISTRY Magnesium Lvl 1.4 1.8 - 2.4 11/17 LOW [facility] CHEMISTRY Phosphorus 3.4 2.5 - 4.5 11/17 Normal [facility] HEMATOLOGY Segs 60.3 45.0 - 11/17 Normal [facility] 75.0 /2012 [facility] HEMATOLOGY Monocytes 9.0 2.0 - 12.0 11/17 Normal [facility] HEMATOLOGY Lymphocytes 27.8 20.0 - 11/17 Normal [place] 40.0 [facility] HEMATOLOGY Eosinophils 2.1 0.0 - 4.0 11/17 Normal [facility] HEMATOLOGY Lymphocytes # 2.3 1.0 - 5.5 11/17 Normal [facility] HEMATOLOGY Eosinophils # 0.2 0.0 - 0.5 11/17 Normal [facility] HEMATOLOGY Basophils 0.8 0.0 - 1.0 11/17 Normal [facility] HEMATOLOGY Segs-Bands # 5.1 1.5 - 8.1 11/17 Normal [facility] HEMATOLOGY Basophils # 0.1 0.0 - 0.2 11/17 Normal [facility] HEMATOLOGY Monocytes # 0.8 0.0 - 0.8 11/17 Normal [facility] HEMATOLOGY Microcyte 1+ None Seen 11/17 [facility] *ABN* /2012 Medical (11/17/2012 04:33:00) [facility] HEMATOLOGY INR 1.09 0.85 - 11/17 Normal <sup>8</sup>I [facility] 1.17 nterpretive Medical Data: Center RECOMMENDED RANGES FOR PROTIME INR:
2.0-3.0 for most medical and surgical thromboemboli c states.
2.5-3.5 for artificial heart valves and recurrent embolism.<br/ >
INR SHOULD BE USED ONLY FOR PATIENTS ON STABLE ANTICOAGULANT THERAPY. HEMATOLOGY PT 14.3 12.0 - 11/17 Normal [facility] 14.7 [facility] HEMATOLOGY PTT 31.8 22.9 - 11/17 Normal <sup>9</sup>I [facility] 35.8 /2012 nterpretive Medical Data: Heparin Center Therapeutic Range: 57 - 92 Seconds HEMATOLOGY Platelet 177 133 - 450 11/17 Normal [facility] HEMATOLOGY MPV 9.5 7.4 - 10.4 [...] WBC 8.4 3.7 - 10.4 11/17 Normal [facility] HEMATOLOGY Hct 27.9 36.0 - 03 LOW [place] 48.0 /2012 [facility] HEMATOLOGY Hgb 9.0 12.0 - 11/17 LOW [place] 16.0 /2012 [facility] CHEMISTRY Troponin-T <0.010 0.000 - 11/17 Normal [place] 0.100 [facility] CHEMISTRY Troponin-I <0.02 0.00 - 11/17 Normal [facility] 0.40 [facility] CHEMISTRY Total CK 76 12 - 191 11/17 Normal [facility] CHEMISTRY CK MB Index 0.8 0.0 - 2.5 11/17 Normal [facility] CHEMISTRY CK MB 0.6 0.5 - 3.6 11/17 Normal [facility] BEDSIDE Gluc POC 305 70 - 99 11/17 HI <sup>3</sup>I [facility] GLUCOSE [employer] /2012 nterpretive Medical TESTING Data: Center Upper Reportable Limit: 200 mg/dL. BEDSIDE Comment1 Notify 11/17 NA [facility] GLUCOSE RN/MD /2012 Medical TESTING Center CHEMISTRY Magnesium Lvl 1.4 1.8 - 2.4 11/16 LOW [facility] CHEMISTRY Total CK 27 12 - 191 11/16 Normal [facility] CHEMISTRY Troponin-T <0.010 0.000 - 11/16 Normal [place] 0.100 [facility] CHEMISTRY Troponin-I <0.02 0.00 - 11/16 Normal [place] 0.40 [facility] CHEMISTRY B/C Ratio 6 6 - 25 11/16 Normal [facility] CHEMISTRY A/G Ratio 1.0 0.7 - 1.6 11/16 Normal [facility] CHEMISTRY AGAP 18.6 10.0 - 11/16 Normal [facility] 20.0 [facility] CHEMISTRY Globulin 3.5 2.0 - 4.0 11/16 Normal [facility] CHEMISTRY eGFR 67 11/16 NA <sup>5</sup>R [...] Lvl 3.4 3.5 - 5.0 11/16 LOW [facility] CHEMISTRY Alk Phos 88 39 - 136 11/16 Normal [facility] CHEMISTRY Glucose Lvl 256 70 - 99 11/16 HI <sup>7</sup>I nterpretive Medical Data: Adult Center reference range values reflect the clinical guidelines
of the [place] [employer]. CHEMISTRY BUN 6 7 - 22 11/16 LOW [facility] CHEMISTRY Sodium Lvl 136 135 - 145 11/16 Normal [facility] CHEMISTRY Chloride Lvl 99 95 - 109 11/16 Normal [facility] CHEMISTRY Creatinine 1.0 0.5 - 1.4 11/16 Normal [facility] CHEMISTRY Potassium Lvl 3.6 3.5 - 5.1 11/16 Normal [facility] CHEMISTRY CO2 22 24 - 32 11/16 [facility] CHEMISTRY Calcium Lvl 8.8 8.5 - 10.5 11/16 Normal [facility] CHEMISTRY Bili Total 0.6 0.2 - 1.3 11/16 Normal [facility] CHEMISTRY Total Protein 6.9 6.4 - 8.4 11/16 Normal [facility] CHEMISTRY AST 52 0 - 37 11/16 HI [facility] CHEMISTRY ALT 52 0 - 65 11/16 Normal [facility] CHEMISTRY Phosphorus 1.6 2.5 - 4.5 11/16 LOW [facility] HEMATOLOGY Lymphocytes 16.8 20.0 - 11/16 LOW [place] 40.0 [facility] HEMATOLOGY Segs 72.3 45.0 - 11/16 Normal [facility] 75.0 [facility] HEMATOLOGY Large Plt Slight None Seen 11/16 [facility] Medical (11/16/2012 13:17:00) Center HEMATOLOGY Elliptocyte Slight None Seen 11/16 [facility] (11/16/2012 13:17:00) Center HEMATOLOGY Polychrom Slight None Seen 11/16 Normal [facility] (11/16/2012 13:17:00) [facility] HEMATOLOGY Microcyte 1+ None Seen 11/16 [facility] Medical (11/16/2012 13:17:00) Center HEMATOLOGY Basophils # 0.1 0.0 - 0.2 11/16 Normal [facility] HEMATOLOGY Hypochrom Slight None Seen 11/16 Normal [facility] (11/16/2012 13:17:00) Medical Center HEMATOLOGY Anisocyte 1+ None Seen 11/16 [facility] Medical (11/16/2012 13:17:00) Center HEMATOLOGY Schistocyte Occasional 11/16 NA [facility] HEMATOLOGY Monocytes 8.6 2.0 - 12.0 11/16 Normal [facility] HEMATOLOGY Eosinophils 1.5 0.0 - 4.0 11/16 Normal [facility] HEMATOLOGY Monocytes # 1.1 0.0 - 0.8 11/16 HI [facility] HEMATOLOGY Segs-Bands # 9.7 1.5 - 8.1 11/16 HI [facility] HEMATOLOGY Eosinophils # 0.2 0.0 - 0.5 11/16 Normal [facility] HEMATOLOGY Lymphocytes # 2.2 1.0 - 5.5 11/16 Normal [facility] HEMATOLOGY Basophils 0.8 0.0 - 1.0 11/16 Normal [facility] HEMATOLOGY Hgb 10.8 12.0 - 03 LOW [place] 16.0 /2012 [facility] HEMATOLOGY RBC 4.29 4.20 - 03 Normal [place] 5.40 /2012 [facility] HEMATOLOGY WBC 13.3 3.7 - 10.4 11/16 HI [facility] HEMATOLOGY RDW 18.0 11.5 - 03 HI [place] 14.5 /2012 Medical Center HEMATOLOGY Hct 32.4 36.0 - 03 LOW [place] 48.0 /2012 [facility] HEMATOLOGY MCHC 33.3 32.0 - 03 Normal [place] 36.0 /2012 [facility] HEMATOLOGY MCV 75.4 81.0 - 03 LOW [place] 99.0 /2012 [facility] HEMATOLOGY MCH 25.1 27.0 - 03 [facility] [place] 31.0 /2012 [facility] HEMATOLOGY Platelet 230 133 - 450 11/16 Normal [facility] HEMATOLOGY MPV 9.9 7.4 - 10.4 11/16 Normal [facility] BEDSIDE Comment1 Notify 11/14 NA [facility] GLUCOSE MARTÍNEZ/ /2012 [facility] TESTING Center BEDSIDE Gluc POC 266 70 - 99 11/14 HI <sup>2</sup>I [facility] GLUCOSE [facility] nterpretive Medical TESTING Data: [facility] Upper Reportable Limit: 200 mg/dL. BEDSIDE Comment1 Notify 11/14 NA [facility] GLUCOSE MARTÍNEZ/ /2012 [facility] TESTING Center BEDSIDE Gluc POC 140 70 - 99 11/14 HI <sup>3</sup>I [facility] GLUCOSE [facility] nterpretive Medical TESTING Data: [facility] Upper Reportable Limit: 200 mg/dL. BEDSIDE Comment1 Notify 11/14 NA [facility] GLUCOSE AMRTÍNEZ/ /2012 [facility] TESTING Center BEDSIDE Gluc POC 201 70 - 99 11/14 HI <sup>4</sup>I [facility] GLUCOSE [facility] nterpretive Medical TESTING Data: [facility] Upper Reportable Limit: 200 mg/dL. CHEMISTRY A/G Ratio 0.9 0.7 - 1.6 11/14 Normal [facility] CHEMISTRY AST 41 0 - 37 11/14 [facility] CHEMISTRY eGFR 104 11/14 NA [...] Albumin Lvl 2.9 3.5 - 5.0 11/14 [facility] CHEMISTRY Alk Phos 84 39 - 136 11/14 Normal [facility]2012 [facility] CHEMISTRY BUN 3 7 - 22 11/14 [facility]2012 [facility] CHEMISTRY Creatinine 0.7 0.5 - 1.4 11/14 Normal [facility] CHEMISTRY Sodium Lvl 136 135 - 145 11/14 Normal [facility]2012 [facility] CHEMISTRY Total Protein 6.3 6.4 - 8.4 11/14 [facility]2012 [facility] CHEMISTRY ALT 51 0 - 65 11/14 [facility]2012 [facility] CHEMISTRY Potassium Lvl 3.7 3.5 - 5.1 11/14 Normal [facility]2012 [facility] CHEMISTRY Chloride Lvl 101 95 - 109 11/14 [facility]2012 [facility] CHEMISTRY Glucose Lvl 210 70 - 99 11/14 HI <sup>9</sup>I nterpretive Medical Data: Adult Center reference range values reflect the clinical guidelines
of the [place] [employer]. CHEMISTRY AGAP 15.7 10.0 - 11/14 Normal [facility] 20.0 [facility] CHEMISTRY B/C Ratio 4 6 - 25 11/14 [facility]2012 [facility] CHEMISTRY Globulin 3.4 2.0 - 4.0 11/14 [facility] CHEMISTRY CO2 23 24 - 32 11/14 LOW [facility] CHEMISTRY Bili Total 0.4 0.2 - 1.3 11/14 Normal [facility] CHEMISTRY Calcium Lvl 8.5 8.5 - 10.5 11/14 Normal [facility] CHEMISTRY Phosphorus 3.6 2.5 - 4.5 11/14 Normal [facility] CHEMISTRY Magnesium Lvl 1.5 1.8 - 2.4 11/14 LOW [facility] CHEMISTRY Ca Norm mgdL 3.52 4.65 - 11/14 LOW [place] . [facility] CHEMISTRY Ca Ion mgdL 3.32 4.65 - 11/14 CRIT [facility] 01.23 [facility] CHEMISTRY Ca Ion 0.83 1.16 - 11/14 CRIT <sup>15</sup> [facility] 10.05 Result Medical Comment: Center Critical Result(s) called to Arlin Rose at 11/14/2012 00:23:56 CDT_ by_tvs. Read back OK. CHEMISTRY Ca Norm 0.88 1.16 - 11/14 CRIT [facility] 1 [facility] HEMATOLOGY Platelet 221 133 - 450 11/14 Normal [facility] HEMATOLOGY RDW 19.0 11.5 - 03 [facility] [place] 14.5 /2012 Medical [facility] HEMATOLOGY MCHC 32.4 32.0 - 11/14 [facility] [place] 36.0 /2012 [facility] HEMATOLOGY MCV 75.5 81.0 - 11/14 [facility] [place] 99.0 /2012 [facility] HEMATOLOGY Hct 35.5 36.0 - 11/14 [facility] [place] 48.0 /2012 [facility] HEMATOLOGY Hgb 11.5 12.0 - 03 [facility] [place] 16.0 /2012 [facility] HEMATOLOGY MCH 24.5 27.0 - 03 [facility] [place] 31.0 /2012 [facility] HEMATOLOGY MPV 9.1 7.4 - 10.4 11/14 Normal [facility] HEMATOLOGY RBC 4.70 4.20 - 11/14 Normal [place] 5.40 /2012 [facility] HEMATOLOGY WBC 8.6 3.7 - 10.4 11/14 Normal [facility] HEMATOLOGY Segs 53.3 45.0 - 03 Normal [place] 75.0 /2012 [facility] HEMATOLOGY Microcyte 1+ None Seen 11/14 ABN [place] *ABN* /2012 Medical (11/13/2012 23:45:00) Center HEMATOLOGY Basophils # 0.1 0.0 - 0.2 11/14 Normal [facility] HEMATOLOGY Eosinophils # 0.2 0.0 - 0.5 11/14 Normal 2012 [facility] HEMATOLOGY Monocytes # 0.9 0.0 - 0.8 11/14 HI [facility] HEMATOLOGY Lymphocytes # 2.9 1.0 - 5.5 11/14 Normal [facility] HEMATOLOGY Monocytes 10.3 2.0 - 12.0 11/14 Normal [facility] HEMATOLOGY Lymphocytes 33.6 20.0 - 03 Normal [place] 40.0 [facility] HEMATOLOGY Segs-Bands # 4.6 1.5 - 8.1 11/14 Normal [facility] HEMATOLOGY Basophils 0.7 0.0 - 1.0 11/14 Normal [facility] HEMATOLOGY Eosinophils 2.1 0.0 - 4.0 11/14 Normal [facility] CHEMISTRY Lipase Lvl 43 73 - 393 11/13 LOW [facility] CHEMISTRY Amylase Lvl 14 25 - 115 11/13 LOW [facility] CHEMISTRY A/G Ratio 0.8 0.7 - 1.6 11/13 Normal [facility] CHEMISTRY AST 56 0 - 37 11/13 [facility] CHEMISTRY Alk Phos 67 39 - 136 11/13 Normal 2012 [facility] CHEMISTRY Globulin 2.9 2.0 - 4.0 11/13 Normal [facility] CHEMISTRY Total Protein 5.3 6.4 - 8.4 11/13 LOW [facility] CHEMISTRY Albumin Lvl 2.4 3.5 - 5.0 11/13 LOW 2012 [facility] CHEMISTRY ALT 41 0 - 65 11/13 Normal 2012 [facility] CHEMISTRY Bili Indirect 0.3 0.0 - 1.0 11/13 Normal [facility] CHEMISTRY Bili Direct 0.1 0.0 - 0.3 11/13 Normal [facility] CHEMISTRY Bili Total 0.4 0.2 - 1.3 11/13 Normal [facility] CHEMISTRY eGFR 137 11/13 NA <sup>7</sup>R [...] CHEMISTRY AGAP 17.3 10.0 - 11/13 Normal [facility] 20.0 [facility] CHEMISTRY Calcium Lvl 6.7 8.5 - 10.5 11/13 CRIT <sup>13</sup> Result Medical Comment: Center Critical Result(s) called to _hansel gustafson at _11/13/2012 06:59:47 CDT bylg. Read back OK. CHEMISTRY CO2 17 24 - 32 11/13 LOW [facility] CHEMISTRY Chloride Lvl 111 95 - 109 11/13 HI [facility] CHEMISTRY Potassium Lvl 3.3 3.5 - 5.1 11/13 LOW <sup>5</sup>R esult Medical Comment: Center Specimen Slightly Hemolyzed. CHEMISTRY Sodium Lvl 142 135 - 145 11/13 Normal [facility] CHEMISTRY Creatinine 0.3 0.5 - 1.4 11/13 LOW [facility] /2012 [facility] CHEMISTRY BUN 3 7 - 22 11/13 LOW [facility] CHEMISTRY Glucose Lvl 104 70 - 99 11/13 HI <sup>10</sup> Interpretive Medical Data: Adult Center reference range values reflect the clinical guidelines
of the [place] [employer]. CHEMISTRY Magnesium Lvl 1.3 1.8 - 2.4 03/10 LOW [facility] CHEMISTRY Phosphorus 2.8 2.5 - 4.5 03 Normal [facility] CHEMISTRY Ca Ion 1.01 1.16 - 11/13 [facility] [place] 1.30 [facility] CHEMISTRY Ca Norm 1.07 1.16 - 11/13 [facility] [place] 1.30 [facility] CHEMISTRY Ca Norm mgdL 4.28 4.65 - 11/13 [facility] [place] 5. [facility] CHEMISTRY Ca Ion mgdL 4.04 4.65 - 11/13 [facility] [place] 5.20 [facility] HEMATOLOGY MCV 78.6 81.0 - 03 [facility] [place] 99.0 /2012 [facility] HEMATOLOGY MPV 9.1 7.4 - 10.4 11/13 Normal [facility] HEMATOLOGY MCHC 31.1 32.0 - 03 [facility] [place] 36.0 /2012 [facility] HEMATOLOGY MCH 24.4 27.0 - 03 [facility] [place] 31.0 [facility] HEMATOLOGY Hct 29.4 36.0 - 11/13 [facility] [place] 48.0 /2012 [facility] HEMATOLOGY RDW 19.1 11.5 - 03 HI [place] 14.5 /2012 [facility] HEMATOLOGY Platelet 192 133 - 450 11/13 Normal [facility] HEMATOLOGY Hgb 9.1 12.0 - 03 [facility] [place] 16.0 /2012 [facility] HEMATOLOGY RBC 3.74 4.20 - 11/13 [facility] [place] 5.40 /2012 [facility] HEMATOLOGY WBC 6.8 3.7 - 10.4 11/13 Normal [facility] HEMATOLOGY Plt Morph Normal 11/13 Normal [facility] (11/13/2012 05:00:00) [facility] HEMATOLOGY Atypical 0.0 <=0.0 11/13 Normal [facility] Lymphs /2012 [facility] HEMATOLOGY RBC Morph Normal 11/13 Normal [facility] (11/13/2012 05:00:00) [facility] HEMATOLOGY Eosinophils 2.0 0.0 - 4.0 11/13 Normal [facility] HEMATOLOGY Bands 0.0 0.0 - 11.0 11/13 Normal [facility] HEMATOLOGY Segs 51.0 45.0 - 11/13 [facility] [place] 75.0 [facility] HEMATOLOGY Eosinophils # 0.1 0.0 - 0.5 03/10 Normal [facility] HEMATOLOGY Segs-Bands # 3.5 1.5 - 8.1 11/13 Normal [facility] HEMATOLOGY Monocytes 5.0 2.0 - 12.0 11/13 Normal [facility] HEMATOLOGY Lymphocytes 42.0 20.0 - 11/13 HI [facility] 40.0 [facility] HEMATOLOGY Monocytes # 0.3 0.0 - 0.8 11/13 Normal 2012 [facility] HEMATOLOGY Lymphocytes # 2.9 1.0 - 5.5 11/13 Normal [facility] INFECTIOUS C difficile Negative 1 Negative 11/13 Normal <sup>1</sup>I [facility] DISEASES DNA (11/12/2012 21:54:26) nterpretive Medical Data: [facility] [employer] illumigene Clostridium difficile assay utilizes loop-mediated isothermal [...] CK 25 12 - 191 11/12 Normal [facility] CHEMISTRY Troponin-I <0.02 0.00 - 11/12 Normal [facility] 0.40 [facility] CHEMISTRY eGFR 88 11/12 NA <sup>8</sup>R [...] 13.7 10.0 - 03 Normal [place] 20.0 [facility] CHEMISTRY Calcium Lvl 8.5 8.5 - 10.5 11/12 Normal [facility] CHEMISTRY CO2 25 24 - 32 11/12 Normal [facility] CHEMISTRY Potassium Lvl 3.7 3.5 - 5.1 11/12 Normal [facility] CHEMISTRY Sodium Lvl 138 135 - 145 11/12 Normal [facility] CHEMISTRY Chloride Lvl 103 95 - 109 11/12 Normal [facility] CHEMISTRY Creatinine 0.8 0.5 - 1.4 11/12 Normal [facility] Lvl [facility] CHEMISTRY BUN 5 7 - 22 11/12 LOW [facility] CHEMISTRY Glucose Lvl 40 70 - 99 11/12 CRIT <sup>11</sup> Result Medical Comment: Center rechecked Critical Result(s) called to _Leo Rose at 11/12/2012 02:56:37 [employer] by_mgm. Read back OK.
<sup> 12</sup>Inter pretive Data: Adult reference range values reflect the clinical guidelines
of the [place] [employer]. CHEMISTRY Ca Norm mgdL 4.20 4.65 - 03 [facility] [place] 5. [facility] CHEMISTRY Ca Norm 1.05 1.16 - 11/12 [facility] [place] 1.30 [facility] CHEMISTRY Ca Ion mgdL 4.00 4.65 - 09 LOW [place] 5. [facility] CHEMISTRY Ca Ion 1.00 1.16 - 0309 [facility] [place] 1.30 [facility] CHEMISTRY Magnesium Lvl 1.9 1.8 - 2.4 11/12 Normal [facility] CHEMISTRY Phosphorus 3.2 2.5 - 4.5 11/12 Normal [facility] HEMATOLOGY MCHC 32.0 32.0 - 03 Normal [place] 36.0 /2013 [facility] HEMATOLOGY MCH 24.1 27.0 - 0309 [facility] [place] 31.0 [facility] HEMATOLOGY MCV 75.3 81.0 - 03 LOW [facility] [place] 99.0 /2012 [facility] HEMATOLOGY WBC 9.2 3.7 - 10.4 03 Normal [facility] HEMATOLOGY Platelet 233 133 - 450 03 Normal [facility] HEMATOLOGY MPV 9.1 7.4 - 10.4 11/12 Normal [facility] HEMATOLOGY RDW 19.0 11.5 - 03/ HI [place] 14.5 /2012 [facility] HEMATOLOGY RBC 4.19 4.20 - 03 LOW [place] 5.40 /2012 [facility] HEMATOLOGY Hgb 10.1 12.0 - 03 LOW [place] 16.0 /2012 [facility] HEMATOLOGY Hct 31.6 36.0 - 03 LOW [place] 48.0 /2012 [facility] HEMATOLOGY Hypochrom Slight None Seen 11/12 Normal [facility] (11/12/2012 00:19:00) /2012 [facility] HEMATOLOGY Large Plt Slight None Seen 11/12 [facility] *ABN* /2012 Medical (11/12/2012 00:19:00) [facility] HEMATOLOGY Atypical 0.0 <=0.0 11/12 Normal [facility] Lymphs [facility] HEMATOLOGY Basophils 1.0 0.0 - 1.0 11/12 Normal [facility] HEMATOLOGY Lymphocytes 39.0 20.0 - 03 [facility] 40.0 [facility] HEMATOLOGY Bands 0.0 0.0 - 11.0 11/12 Normal [facility] HEMATOLOGY Eosinophils 2.0 0.0 - 4.0 11/12 Normal [facility] HEMATOLOGY Monocytes 6.0 2.0 - 12.0 11/12 Normal [facility] HEMATOLOGY Segs 52.0 45.0 - 11/12 [facility] [place] 75.0 [facility] HEMATOLOGY Basophils # 0.1 0.0 - 0.2 11/12 Normal [facility] HEMATOLOGY Monocytes # 0.6 0.0 - 0.8 11/12 Normal [facility] HEMATOLOGY Lymphocytes # 3.6 1.0 - 5.5 11/12 Normal [facility] HEMATOLOGY Segs-Bands # 4.8 1.5 - 8.1 11/12 Normal [facility] HEMATOLOGY Eosinophils # 0.2 0.0 - 0.5 11/12 Normal [facility] HEMATOLOGY Microcyte 1+ None Seen 11/11 [facility] Medical (11/11/2012 03:41:00) Center HEMATOLOGY Basophils # 0.1 0.0 - 0.2 11/11 Normal [facility] HEMATOLOGY Basophils 0.7 0.0 - 1.0 11/11 Normal [facility] HEMATOLOGY Microcyte 1+ None Seen 11/09 [facility] Medical (11/09/2012 05:12:00) Center URINALYSIS UA pH 5.0 5.0 - 8.0 11/08 Normal [facility] URINALYSIS UA Protein 20 mg/dL Negative 11/08 [facility] Medical (11/07/2012 20:54:00) Center URINALYSIS UA Turbidity Slight Clear 11/08 [facility] Medical (11/07/2012 20:54:00) Center URINALYSIS UA Spec Grav 1.010 <=1.030 11/08 Normal [facility] URINALYSIS UA Color Yellow Yellow 11/08 [facility]2012 20:54:00[facility] Center URINALYSIS UA Bacteria Moderate /HPF None Seen 11/08 [facility] Medical (11/07/2012 20:54:00) Center URINALYSIS UA Mucus Few /LPF None [facility]en 11[facility] (11/07/2012 20:54:00) Center URINALYSIS UA WBC >182 0 - 5 11/08 [facility] URINALYSIS UA RBC 4 0 - 2 11/08 [facility] URINALYSIS UA Sq Epi Moderate /LPF Few 11/08 [facility] Medical (11/07/2012 20:54:00) Center URINALYSIS UA Leuk Est Large Negative 11/08 [facility] Medical (11/07/2012 20:54:00) Center URINALYSIS UA Blood Trace Negative 11/08 [facility]* Medical (11/07/2012 20:54:00) Center URINALYSIS UA Nitrite Negative Negative 11/08 Normal [facility] (11/07/2012 20:54:00) [facility] URINALYSIS UA Ketones 40 mg/dL Negative 11/08 [facility]* Medical (11/07/2012 20:54:00) Center URINALYSIS UA Bili Negative Negative 11/08 [facility] (11/07/2012 20:54:00) Center URINALYSIS Micro? Performed 11/08 [facility] (11/07/2012 20:54:00) Center URINALYSIS UA 0.1 - 1.0 11/08 [facility] Urobilinogen /2012 [facility] URINALYSIS UA Glucose >=1000mg/d 11/08 [facility] L [facility] URINALYSIS UA Hyal Cast 37 0 - 2 11/08 [facility] URINALYSIS UA Ketones 40 mg/dL Negative [...] & [facility] CHEMISTRY U Osmolality 207 300 - 800 11/06 LOW [facility] CHEMISTRY POC A %FIO2 21.0 18.0 - 11/06 Normal [facility] 100.0 [facility] CHEMISTRY POC A LA 0.9 0.5 - 2.2 11/06 Normal [facility] CHEMISTRY POC A Glu 281 70 - 99 11/06 [facility] CHEMISTRY POC A Temp 37.0 11/06 NA [facility] CHEMISTRY POC A Source ART 11/06 NA [facility] CHEMISTRY POC A pH 7.45 7.35 - 11/06 Normal [facility] 7.45 /2012 Medical [facility] CHEMISTRY POC A HCO3 24 22 - 26 03 Normal [facility] CHEMISTRY POC A PCO2 35 35 - 45 03/ Normal [facility] CHEMISTRY POC A PO2 85 80 - 100 03 Normal [facility] CHEMISTRY POC A BE 0 -2-2 - 2 11/06 Normal [facility] CHEMISTRY POC A O2 Sat 97.0 95.0 - 11/06 Normal [place] 100.0 Medical Center CHEMISTRY POC A Na 123 135 - 145 11/06 LOW [facility] CHEMISTRY POC A Hct 31.0 36.0 - 11/06 LOW [place] 48.0 /2012 [facility] CHEMISTRY POC A Ca Ion 1.11 1.16 - 03 LOW [facility] 1.30 [facility] CHEMISTRY POC A K 3.7 3.5 - 5.1 11/06 Normal [facility] CHEMISTRY POC A BE -4 -2-2 - 2 11/06 LOW [facility] CHEMISTRY POC A HCO3 20 22 - 26 11/06 LOW [facility] CHEMISTRY POC A Source ART 11/06 NA [facility] CHEMISTRY POC A Temp 37.0 11/06 NA [facility] CHEMISTRY POC A pH 7.42 7.35 - 11/06 Normal [facility] 7.45 [facility] CHEMISTRY POC A PO2 81 80 - 100 11/06 Normal [facility] CHEMISTRY POC A O2 Sat 96.0 95.0 - 11/06 Normal 100.0 [facility] CHEMISTRY POC A PCO2 31 35 - 45 11/06 LOW [facility] CHEMISTRY POC A %FIO2 21.0 18.0 - 03 Normal [facility] 100.0 /2012 [facility] Microbiolog Culture: 11/06 [facility] y Urine /2012 [facility] CHEMISTRY Troponin-I <0.02 0.00 - 03 Normal [facility] 0.40 /2012 [facility] CHEMISTRY Troponin-T <0.010 0.000 - 03 Normal [facility] 0.100 [facility] CHEMISTRY Total CK 48 12 - 191 11/06 Normal [facility] URINALYSIS UA 0.1 - 1.0 11/06 NA [facility] Urobilinogen /2012 [facility] URINALYSIS UA Leuk Est Large Negative 11/06 ABN [facility] * Medical (11/06/2012 03:15:40) Center URINALYSIS UA Sq Epi Moderate /LPF Few 11/06 [facility] Medical (11/06/2012 03:15:40) Center URINALYSIS UA Mucus Few /LPF None Seen 11/06 NA [facility] Medical (11/06/2012 03:15:40) Center URINALYSIS UA Nitrite Negative Negative 11/06 Normal [facility] (11/06/2012 03:15:40) Medical Center URINALYSIS UA Bacteria Occasional /HPF None Seen 11/06 [facility] (11/06/2012 03:15:40) Center URINALYSIS UA WBC 67 0 - 5 11/06 [facility] URINALYSIS UA Blood Negative Negative 11/06 Normal [facility] (11/06/2012 03:15:40) Medical Center URINALYSIS UA Bili Negative Negative 11/06 [facility] Medical (11/06/2012 03:15:40) Center URINALYSIS UA Ketones 60 mg/dL Negative 11/06 [facility] Medical (11/06/2012 03:15:40) Center URINALYSIS UA pH 5.0 5.0 - 8.0 11/06 Normal Medical Center URINALYSIS UA Glucose >=1000 mg/dL Negative 11/06 [facility] Medical (11/06/2012 03:15:40) Center URINALYSIS UA Spec Grav 1.014 <=1.030 11/06 Normal [facility] URINALYSIS UA Protein Negative mg/dL Negative 11/06 Normal [facility] (11/06/2012 03:15:40) Medical Center URINALYSIS UA Turbidity Slight Clear 11/06 [facility] Medical (11/06/2012 03:15:40) Center URINALYSIS UA Color Yellow Yellow 11/06 NA [facility] Medical (11/06/2012 03:15:40) Center CHEMISTRY Troponin-I 0.02 0.00 - 11/06 Normal [facility] 0.40 Medical Center CHEMISTRY Total CK 30 12 - 191 11/06 Normal [facility] CHEMISTRY Troponin-T <0.010 0.000 - 11/06 Normal [facility] 0.100 /2012 Medical [facility] CHEMISTRY Ketone 3.00 <=0.27 11/06 HI [facility] Medical [facility] CHEMISTRY Lipase Lvl 89 73 - 393 11/06 Normal [facility] CHEMISTRY Globulin 4.3 2.0 - 4.0 11/06 [facility] CHEMISTRY A/G Ratio 0.9 0.7 - 1.6 11/06 Normal [facility] CHEMISTRY B/C Ratio 7 6 - 25 11/06 Normal [facility] CHEMISTRY Albumin Lvl 3.7 3.5 - 5.0 11/06 Normal [facility] CHEMISTRY Total Protein 8.0 6.4 - 8.4 11/06 Normal [facility] CHEMISTRY ALT 62 0 - 65 11/06 Normal [facility] CHEMISTRY Alk Phos 119 39 - 136 11/06 Normal [facility] CHEMISTRY Bili Total 0.5 0.2 - 1.3 11/06 Normal [facility] CHEMISTRY AST 44 0 - 37 11/06 [facility] HEMATOLOGY Polychrom Slight None Seen 11/06 Normal [facility] (11/05/2012 20:40:00) Medical Center HEMATOLOGY Hypochrom Slight None Seen 11/06 Normal [facility] (11/05/2012 20:40:00) [facility] HEMATOLOGY Bands 1.0 0.0 - 11.0 11/06 Normal [facility] HEMATOLOGY Anisocyte 1+ None Seen 11/06 [facility] *ABN* Medical (11/05/2012 20:40:00) Center HEMATOLOGY Atypical 0.0 <=0.0 11/06 Normal [facility] Lymphs [facility] HEMATOLOGY Macrocyte 1+ None Seen 11/06 [facility] *ABN* Medical (11/05/2012 20:40:00) Center HEMATOLOGY Plt Morph Normal 11/06 Normal [facility] (11/05/2012 20:40:00) [facility] HEMATOLOGY INR 0.98 0.85 - 11/06 Normal <sup>16</sup> [facility] 1. Interpretive Medical Data: Center RECOMMENDED RANGES FOR PROTIME INR:
2.0-3.0 for most medical and surgical thromboemboli c states.
2.5-3.5 for artificial heart valves and recurrent embolism.<br/ >
INR SHOULD BE USED ONLY FOR PATIENTS ON STABLE ANTICOAGULANT THERAPY. HEMATOLOGY PT 13.2 12.0 - 03 Normal [facility] 14.7 /2012 Medical Center HEMATOLOGY PTT 26.4 22.9 - 03 Normal <sup>17</sup> [facility] 35.8 /2012 Interpretive Medical Data: Heparin Center Therapeutic Range: 57 - 92 Seconds BEDSIDE Gluc POC >400 70 - 99 11/01 CRIT <sup>3</sup>I [facility] nterpretive Medical TESTING Data: Center Upper Reportable Limit: 200 mg/dL. BEDSIDE Comment1 Notify 11/01 NA [facility] GLUCOSE MARTÍNEZ/ Medical TESTING Center BEDSIDE Gluc POC 237 70 - 99 10/31 HI <sup>4</sup>I [facility] nterpretive Medical TESTING Data: Center Upper Reportable Limit: 200 mg/dL. BEDSIDE Gluc POC 357 70 - 99 10/31 HI <sup>5</sup>I [facility] nterpretive Medical TESTING Data: Center Upper Reportable Limit: 200 mg/dL. BEDSIDE Comment1 Notify 10/31 NA Fei ROACH RN/ /2012 Medical TESTING Center CHEMISTRY Phosphorus 4.2 2.5 - 4.5 10/31 Normal [facility] CHEMISTRY Ca Norm mgdL 4.64 4.65 - 10/31 [facility] 5. [facility] CHEMISTRY Ca Ion mgdL 4.44 4.65 - 10/31 [facility] 5. [facility] CHEMISTRY Ca Norm 1.16 1.16 - 10/31 Normal [facility] 1.30 [facility] CHEMISTRY Ca Ion 1.11 1.16 - 10/31 LOW [facility] 1.30 [facility] CHEMISTRY AGAP 16.9 10.0 - 10/31 Normal [facility] 20.0 [facility] CHEMISTRY eGFR 67 10/31 NA [...] Creatinine 1.0 0.5 - 1.4 10/31 Normal [facility] CHEMISTRY Sodium Lvl 133 135 - 145 10/31 [facility] CHEMISTRY Calcium Lvl 8.3 8.5 - 10.5 10/31 [facility] CHEMISTRY Potassium Lvl 3.9 3.5 - 5.1 10/31 [facility] CHEMISTRY Chloride Lvl 94 95 - 109 10/31 [facility] CHEMISTRY CO2 26 24 - 32 10/31 [facility] CHEMISTRY BUN 8 7 - 22 10/31 [facility] CHEMISTRY Glucose Lvl 75 70 - 99 10/31 Normal <sup>10</sup> Interpretive Medical Data: Adult Center reference range values reflect the clinical guidelines
of the [place] [employer]. CHEMISTRY Magnesium Lvl 1.9 1.8 - 2.4 10/31 [facility] HEMATOLOGY MPV 9.4 7.4 - 10.4 10/31 [facility] HEMATOLOGY Hgb 9.7 12.0 - 10/31 [facility] 16.0 [facility] HEMATOLOGY RBC 4.06 4.20 - 10/31 [facility] 5.40 [facility] HEMATOLOGY MCV 74.3 81.0 - 10/31 [facility] 99.0 [facility] HEMATOLOGY Hct 30.2 36.0 - 10/31 [facility] [place] 48.0 [facility] HEMATOLOGY MCHC 32.2 32.0 - 10/31 [facility] [place] 36.0 Medical Center HEMATOLOGY MCH 23.9 27.0 - 10/31 LOW [place] 31.0 /2012 [facility] HEMATOLOGY Platelet 199 133 - 450 10/31 Normal [facility] HEMATOLOGY RDW 17.5 11.5 - 10/31 HI [facility] 14.5 [facility] HEMATOLOGY WBC 9.4 3.7 - 10.4 10/31 Normal [facility] HEMATOLOGY Lymphocytes # 2.7 1.0 - 5.5 10/31 Normal [facility] HEMATOLOGY Basophils 0.6 0.0 - 1.0 10/31 Normal [facility] HEMATOLOGY Segs-Bands # 5.2 1.5 - 8.1 10/31 Normal [facility] HEMATOLOGY Microcyte 1+ None Seen 10/31 [facility] *ABN* /2012 [facility] (10/31/2012 04:00:00) [facility] HEMATOLOGY Monocytes # 1.1 0.0 - 0.8 10/31 [facility] HEMATOLOGY Eosinophils # 0.3 0.0 - 0.5 10/31 Normal [facility] HEMATOLOGY Basophils # 0.1 0.0 - 0.2 10/31 Normal [facility] HEMATOLOGY Segs 55.2 45.0 - 10/31 Normal [place] 75.0 [facility] HEMATOLOGY Monocytes 11.8 2.0 - 12.0 10/31 Normal [facility] HEMATOLOGY Lymphocytes 28.9 20.0 - 10/31 Normal [place] 40.0 [facility] HEMATOLOGY Eosinophils 3.5 0.0 - 4.0 10/31 Normal [facility] BEDSIDE Comment1 Notify 10/31 NA [facility] GLUCOSE RN/MD Medical TESTING Center CHEMISTRY Ca Norm mgdL 4.92 4.65 - 10/30 Normal [facility] 5. [facility] CHEMISTRY Ca Ion mgdL 4.76 4.65 - 10/30 Normal [facility] 5. [facility] CHEMISTRY Ca Norm 1.23 1.16 - 10/30 Normal [facility] 10.05 [facility] CHEMISTRY Ca Ion 1.19 1.16 - 10/30 Normal [facility] 10.05 [facility] CHEMISTRY Phosphorus 3.8 2.5 - 4.5 10/30 Normal [facility] CHEMISTRY Magnesium Lvl 1.9 1.8 - 2.4 10/30 Normal [facility] CHEMISTRY eGFR 88 10/30 NA <sup>8</sup>R [...] 99 10/30 Normal <sup>11</sup> Interpretive Medical Data: [facility] Center reference range values reflect the clinical guidelines
of the [place] [employer]. CHEMISTRY Creatinine 0.8 0.5 - 1.4 10/30 Normal [facility] CHEMISTRY BUN 6 7 - 22 10/30 [facility] CHEMISTRY Sodium Lvl 132 135 - 145 10/30 [facility] CHEMISTRY Calcium Lvl 8.5 8.5 - 10.5 10/30 Normal [facility] CHEMISTRY CO2 29 24 - 32 10/30 Normal [facility] CHEMISTRY Chloride Lvl 92 95 - 109 10/30 [facility] CHEMISTRY Potassium Lvl 3.8 3.5 - 5.1 10/30 Normal [facility] CHEMISTRY AGAP 14.8 10.0 - 10/30 [facility] 20. [facility] HEMATOLOGY Platelet 245 133 - 450 10/30 [facility] HEMATOLOGY MPV 9.4 7.4 - 10.4 10/30 [facility] HEMATOLOGY Hct 33.1 36.0 - 10/30 [facility] 48.0 [facility] HEMATOLOGY RBC 4.47 4.20 - 10/30 [facility] [place] 5.40 /2012 [facility] HEMATOLOGY WBC 11.0 3.7 - 10.4 10/30 [facility] HEMATOLOGY Hgb 10.6 12.0 - 10/30 [facility] [place] 16.0 /2012 [facility] HEMATOLOGY MCHC 31.9 32.0 - 02 [facility] [place] 36.0 /2012 [facility] HEMATOLOGY MCV 74.1 81.0 - 10/30 [facility] [place] 99.0 /2012 [facility] HEMATOLOGY MCH 23.7 27.0 - 02 [facility] [place] 31.0 /2012 [facility] HEMATOLOGY RDW 16.9 11.5 - 10/30 [facility] 14.5 /2012 [facility] HEMATOLOGY PTT 28.1 22.9 - 10/30 Normal <sup>25</sup> [facility] 35.8 /2012 Interpretive Medical Data: [facility] Therapeutic Range: 57 - 92 Seconds HEMATOLOGY PT 13.7 12.0 - 10/30 Normal [facility] 14.7 /2012 [facility] HEMATOLOGY INR 1.03 0.85 - 10/30 Normal <sup>22</sup> [facility] 1.17 Interpretive Medical Data: Center RECOMMENDED RANGES FOR PROTIME INR:
2.0-3.0 for most medical and surgical thromboemboli c states.
2.5-3.5 for artificial heart valves and recurrent embolism.<br/ >
INR SHOULD BE USED ONLY FOR PATIENTS ON STABLE ANTICOAGULANT THERAPY. HEMATOLOGY Segs-Bands # 7.5 1.5 - 8.1 10/30 [facility] HEMATOLOGY Basophils 0.4 0.0 - 1.0 10/30 [facility] HEMATOLOGY Monocytes # 1.1 0.0 - 0.8 10/30 [facility] HEMATOLOGY Lymphocytes # 2.1 1.0 - 5.5 10/30 [facility] HEMATOLOGY Microcyte 1+ None Seen 10/30 [facility] [place] *ABN* /2012 Medical (10/30/2012 00:20:00) [facility] HEMATOLOGY Eosinophils # 0.2 0.0 - 0.5 10/30 [facility] HEMATOLOGY Segs 68.3 45.0 - 10/30 [facility] [place] 75.0 [facility] HEMATOLOGY Lymphocytes 18.9 20.0 - 10/30 LOW [facility] [place] 40.0 /2013 [facility] HEMATOLOGY Monocytes 10.3 2.0 - 12.0 10/30 Normal [facility] HEMATOLOGY Eosinophils 2.1 0.0 - 4.0 10/30 Normal [facility] CHEMISTRY Magnesium Lvl 2.1 1.8 - 2.4 10/29 Normal [facility] CHEMISTRY Phosphorus 4.1 2.5 - 4.5 10/29 Normal [facility] CHEMISTRY Ca Ion mgdL 3.96 4.65 - 10/29 [facility] 5. [facility] CHEMISTRY Ca Norm 1.01 1.16 - 10/29 [facility] 1. [facility] CHEMISTRY Ca Ion 0.99 1.16 - 10/29 [facility] 1. [facility] CHEMISTRY Ca Norm mgdL 4.04 4.65 - 10/29 [facility] 01.23 [facility] CHEMISTRY eGFR 104 10/29 NA <sup>9</sup>R [...] Creatinine 0.7 0.5 - 1.4 10/29 Normal [facility] CHEMISTRY BUN 3 7 - 22 10/29 LOW [facility] CHEMISTRY Calcium Lvl 8.9 8.5 - 10.5 10/29 Normal [facility] CHEMISTRY Glucose Lvl 90 70 - 99 10/29 Normal <sup>12</sup> Interpretive Medical Data: Adult Center reference range values reflect the clinical guidelines
of the [place] [employer]. CHEMISTRY Chloride Lvl 99 95 - 109 10/29 Normal [facility] CHEMISTRY Potassium Lvl 4.4 3.5 - 5.1 10/29 Normal [facility] CHEMISTRY CO2 27 24 - 32 10/29 Normal [facility] CHEMISTRY Sodium Lvl 139 135 - 145 10/29 Normal [facility] CHEMISTRY AGAP 17.4 10.0 - 10/29 Normal [place] 20.0 /2012 [facility] HEMATOLOGY PTT 23.7 22.9 - 10/29 Normal <sup>26</sup> [place] 35.8 /2012 Interpretive Medical Data: Heparin Center Therapeutic Range: 57 - 92 Seconds HEMATOLOGY PT 13.4 12.0 - 10/29 Normal [place] 14.7 /2012 [facility] HEMATOLOGY INR 1.00 0.85 - 10/29 Normal <sup>23</sup> [facility] 1.17 /2012 Interpretive Medical Data: Center RECOMMENDED RANGES FOR PROTIME INR:
2.0-3.0 for most medical and surgical thromboemboli c states.
2.5-3.5 for artificial heart valves and recurrent embolism.<br/ >
INR SHOULD BE USED ONLY FOR PATIENTS ON STABLE ANTICOAGULANT THERAPY. HEMATOLOGY RDW 17.1 11.5 - 10/29 [facility] [place] 14.5 /2012 [facility] HEMATOLOGY MCH 23.8 27.0 - 10/29 LOW [place] 31.0 /2012 [facility] HEMATOLOGY MCHC 32.2 32.0 - 10/29 Normal [place] 36.0 /2012 [facility] HEMATOLOGY Hct 33.6 36.0 - 10/29 [facility] [place] 48.0 /2012 [facility] HEMATOLOGY MCV 74.0 81.0 - 10/29 [facility] [place] 99.0 /2012 [facility] HEMATOLOGY Platelet 233 133 - 450 10/29 Normal [facility] HEMATOLOGY MPV 9.9 7.4 - 10.4 10/29 Normal [facility] HEMATOLOGY RBC 4.54 4.20 - 10/29 Normal [place] 5.40 /2012 [facility] HEMATOLOGY Hgb 10.8 12.0 - 10/29 [facility] [place] 16.0 /2012 [facility] HEMATOLOGY WBC 9.7 3.7 - 10.4 02/23 Normal [facility] HEMATOLOGY Lymphocytes # 2.6 1.0 - 5.5 10/29 Normal [facility] HEMATOLOGY Basophils 0.7 0.0 - 1.0 10/29 Normal [facility] HEMATOLOGY Segs-Bands # 6.0 1.5 - 8.1 10/29 Normal [facility] HEMATOLOGY Monocytes # 0.7 0.0 - 0.8 10/29 Normal [facility] HEMATOLOGY Eosinophils # 0.3 0.0 - 0.5 10/29 Normal [facility] HEMATOLOGY Basophils # 0.1 0.0 - 0.2 10/29 Normal [facility] HEMATOLOGY Microcyte 1+ None Seen 10/29 [facility] *ABN* /2012 Medical (10/29/2012 00:56:00) [facility] HEMATOLOGY Segs 61.5 45.0 - 10/29 Normal [facility] 75.0 [facility] HEMATOLOGY Lymphocytes 26.8 20.0 - 10/29 Normal [facility] 40.0 [facility] HEMATOLOGY Monocytes 7.6 2.0 - 12.0 10/29 Normal [facility] HEMATOLOGY Eosinophils 3.4 0.0 - 4.0 10/29 Normal [facility] CHEMISTRY Amylase Lvl 27 25 - 115 10/28 Normal [facility] CHEMISTRY Lipase Lvl 58 73 - 393 10/28 LOW [facility] CHEMISTRY Bili Indirect 0.2 0.0 - 1.0 10/28 Normal [facility] CHEMISTRY Globulin 3.4 2.0 - 4.0 10/28 Normal [facility] CHEMISTRY A/G Ratio 0.8 0.7 - 1.6 10/28 Normal [facility] CHEMISTRY AST 24 0 - 37 10/28 Normal [facility] CHEMISTRY Bili Total 0.3 0.2 - 1.3 10/28 Normal [facility] CHEMISTRY Total Protein 6.2 6.4 - 8.4 10/28 LOW [facility] CHEMISTRY ALT 23 0 - 65 10/28 Normal [facility] CHEMISTRY Albumin Lvl 2.8 3.5 - 5.0 10/28 LOW [facility] CHEMISTRY Alk Phos 85 39 - 136 10/28 Normal [facility] CHEMISTRY Bili Direct 0.1 0.0 - 0.3 10/28 Normal [facility] HEMATOLOGY PTT 23.9 22.9 - 10/28 Normal <sup>27</sup> [facility] 35.8 /2012 Interpretive Medical Data: Heparin Center Therapeutic Range: 57 - 92 Seconds HEMATOLOGY PT 13.5 12.0 - 10/28 Normal [facility] 14.7 /2012 [facility] HEMATOLOGY INR 1.01 0.85 - 10/28 Normal <sup>24</sup> [facility] 1.17 /2012 Interpretive Medical Data: Center RECOMMENDED RANGES FOR PROTIME INR:
2.0-3.0 for most medical and surgical thromboemboli c states.
2.5-3.5 for artificial heart valves and recurrent embolism.<br/ >
INR SHOULD BE USED ONLY FOR PATIENTS ON STABLE ANTICOAGULANT THERAPY. VIRAL - Influ B Negative 6 Negative 10/28 Normal <sup>6</sup>I [facility] SEROLOGY (10/27/2012 18:02:02) nterpretive Medical Data: [...] - Influ A Negative Negative 10/28 Normal [facility] SEROLOGY (10/27/2012 18:02:02) [facility] CHEMISTRY Vitamin D, 16 30 - 100 10/25 LOW <sup>13</sup> [facility] 25-OH, Interpretive Medical Data: Center Reference range is based on recommendatio ns in the Endocrine<br/ >Society Clinical Practice Guideline (J Clin Endocrinol Metab
201 1;[id number] 0) CHEMISTRY Hgb A1C 8.4 10/25 NA <sup>21</sup> [facility] Interpretive Medical Data: HbA1C% Center eAG(mg/dL) [...] LDL 87 0 - 129 10/25 Normal [facility] CHEMISTRY HDL 35 >=35 10/25 Normal [facility] CHEMISTRY Trig 101 0 - 200 10/25 Normal [facility] CHEMISTRY Chol 142 120 - 200 10/25 Normal [facility] CHEMISTRY CHD Risk 4.06 3.90 - 10/25 Normal [facility] 5.80 /2012 [facility] CHEMISTRY Troponin-I 5.43 0.00 - 10/25 CRIT <sup>18</sup> [facility] 0.40 Result Medical Comment: Center Critical Result(s) called to Jelani Rasmussen at 10/25/2012 00:47:48 ASSISTANT MANAGER TRAINEE by . Read back OK. CHEMISTRY Troponin-T 0.693 0.000 - 10/25 CRIT <sup>15</sup> [facility] 0.100 Result Medical Comment: Center Critical Result(s) called to daisy otoole at 10/25/2012 01:18:09 ASSISTANT MANAGER TRAINEE by tac. Read back OK. HEMATOLOGY Basophils # 0.2 0.0 - 0.2 10/25 Normal [facility] HEMATOLOGY Plt Morph Normal 10/25 Normal [facility] (10/25/2012 00:15:00) [facility] CHEMISTRY ALT 15 0 - 65 10/24 Normal [facility] CHEMISTRY Albumin Lvl 2.7 3.5 - 5.0 10/24 LOW [facility] CHEMISTRY Bili Total 0.5 0.2 - 1.3 10/24 Normal [facility] CHEMISTRY Alk Phos 83 39 - 136 10/24 Normal [facility] CHEMISTRY Bili Direct 0.2 0.0 - 0.3 10/24 Normal [facility] CHEMISTRY Total Protein 5.8 6.4 - 8.4 10/24 LOW [facility] CHEMISTRY AST 41 0 - 37 10/24 HI [facility] CHEMISTRY Bili Indirect 0.3 0.0 - 1.0 10/24 Normal [facility] CHEMISTRY Globulin 3.1 2.0 - 4.0 10/24 Normal [facility] CHEMISTRY A/G Ratio 0.9 0.7 - 1.6 10/24 Normal [facility] CHEMISTRY POC A Mode NC-3LPM 10/24 NA [facility] CHEMISTRY POC A HCO3 19 22 - 26 10/24 LOW [facility] CHEMISTRY POC A O2 Sat 98.0 95.0 - 10/24 Normal [place] 100.0 [facility] CHEMISTRY POC A BE -6 -2-2 - 2 10/24 LOW [facility] CHEMISTRY POC A PO2 103 80 - 100 10/24 HI [facility] CHEMISTRY POC A pH 7.35 7.35 - 10/24 LOW [facility] 7.45 [facility] CHEMISTRY POC A PCO2 34 35 - 45 10/24 LOW [facility] CHEMISTRY POC A Temp 37.0 10/24 NA [facility] CHEMISTRY POC A Source ART 10/24 NA [facility] CHEMISTRY Troponin-T 0.688 0.000 - 10/24 CRIT <sup>16</sup> [facility] 0.100 Result Medical Comment: Center Critical Result(s) called to Maribel Bustos at 10/24/2012 13:23:46 ASSISTANT MANAGER TRAINEE by lwb . Read back OK. CHEMISTRY Troponin-I 7.61 0.00 - 10/24 CRIT <sup>19</sup> [facility] 0.40 /2012 Result Medical Comment: Center Critical Result(s) called to mariana bustos at 10/24/2012 13:37:22 CSTby_lss. Read back OK. CHEMISTRY Total CK 150 12 - 191 10/24 Normal [facility] CHEMISTRY Lactic Acid 0.7 0.5 - 2.2 10/24 Normal [facility] Lvl [facility] CHEMISTRY CK MB Index 11.0 0.0 - 2.5 10/24 HI [facility] CHEMISTRY CK MB 16.5 0.5 - 3.6 10/24 HI [facility] CHEMISTRY Troponin-T 0.750 0.000 - 10/24 CRIT <sup>17</sup> [facility] 0.100 Result Medical Comment: Center Critical Result(s) called to Lyn King at 10/24/2012 09:52:38 ASSISTANT MANAGER TRAINEE by lwb . Read back OK. CHEMISTRY Troponin-I 7.60 0.00 - 10/24 CRIT <sup>20</sup> [place] 0.40 /2012 Result Medical Comment: Center Critical Result(s) called to romero beltre at _10/24/2012 09:50:18 ASSISTANT MANAGER TRAINEE by_lss. Read back OK. CHEMISTRY Total CK 170 12 - 191 10/24 Normal <sup>14</sup> Result Medical Comment: Center Specimen Moderately Hemolyzed. CHEMISTRY CK MB Index 10.5 0.0 - 2.5 10/24 HI [facility] CHEMISTRY CK MB 17.8 0.5 - 3.6 10/24 HI [facility] CHEMISTRY Ketone 0.07 <=0.27 10/24 Normal [facility] CHEMISTRY Ketone 2.61 <=0.27 10/24 HI [facility] CHEMISTRY CK MB 30.9 0.5 - 3.6 10/24 HI [facility] CHEMISTRY CK MB Index 12.2 0.0 - 2.5 10/24 HI [facility] CHEMISTRY Total CK 254 12 - 191 10/24 HI [facility] CHEMISTRY Lactic Acid 0.6 0.5 - 2.2 10/24 Normal [facility] Lvl [facility] CHEMISTRY POC V O2 Sat 56.0 40.0 - 10/24 Normal [place] 70.0 [facility] CHEMISTRY POC V HCO3 22 22 - 26 10/24 Normal [facility] CHEMISTRY POC V PO2 32 20 - 49 10/24 Normal [facility] CHEMISTRY POC V BE -4 -2-2 - 2 10/24 LOW [facility] CHEMISTRY POC V PCO2 41 38 - 52 10/24 Normal [facility] CHEMISTRY POC V pH 7.33 7.28 - 10/24 Normal [place] 7.42 [facility] CHEMISTRY POC V Temp 37.0 10/24 NA [facility] CHEMISTRY POC V Source MARK 10/24 NA [facility] CHEMISTRY Ketone 0.93 <=0.27 10/24 HI [facility] Microbiolog Culture: 10/24 [facility] y [facility] CHEMISTRY Lactic Acid 0.6 0.5 - 2.2 10/23 Normal [facility] Lvl [facility] Microbiolog Culture: 10/23 [facility] CHEMISTRY POC [...] Na 133 135 - 145 10/23 LOW [facility] CHEMISTRY POC A K 3.8 3.5 - 5.1 10/23 Normal [facility] CHEMISTRY A/G Ratio 0.8 0.7 - 1.6 10/23 [facility] CHEMISTRY AST 90 0 - 37 10/23 [facility] CHEMISTRY Globulin 3.9 2.0 - 4.0 10/23 Normal [facility] CHEMISTRY B/C Ratio 16 6 - 25 10/23 Normal [facility] CHEMISTRY Total Protein 7.2 6.4 - 8.4 10/23 Normal [facility] CHEMISTRY Bili Total 0.5 0.2 - 1.3 10/23 Normal [facility] CHEMISTRY Albumin Lvl 3.3 3.5 - 5.0 10/23 LOW [facility] CHEMISTRY Alk Phos 94 39 - 136 10/23 [facility] CHEMISTRY ALT 23 0 - 65 10/23 [facility] CHEMISTRY Osmolality 292 280 - 300 10/23 Normal [facility] CHEMISTRY Myoglobin 128 25 - 72 10/23 [facility] Microbiolog Culture: 10/23 [facility] y [facility] Screen BACTERIAL - MRSA by PCR Positive 1, 2 10/23 ABN <sup>1</sup>R [facility] SEROLOGY *ABN* /2012 [facility] (10/23/2012 [...] CHEMISTRY Osmolality 309 280 - 300 10/23 [facility] CHEMISTRY POC A Hct 37.0 36.0 - 10/23 [facility] 48.0 [facility] CHEMISTRY POC A Na 129 135 - 145 10/23 LOW [facility] CHEMISTRY POC A LA 1.0 0.5 - 2.2 10/23 [facility] CHEMISTRY POC A K 4.5 3.5 - 5.1 10/23 [facility] CHEMISTRY POC A Glu >425 70 - 99 10/23 [facility] CHEMISTRY POC A Ca Ion 1.18 1.16 - 10/23 [facility] 1.30 /2012 [facility] CHEMISTRY POC A PCO2 30 35 - 45 10/23 CRIT [facility] CHEMISTRY POC A PO2 123 80 - 100 10/23 [facility] CHEMISTRY POC A Temp 37.0 10/23 NA Medical Center CHEMISTRY POC A HCO3 14 22 - 26 10/23 LOW [facility] CHEMISTRY POC A Source ART 10/23 NA Medical [facility] CHEMISTRY POC A pH 7.27 7.35 - 10/23 LOW [facility] 7.45 [facility] CHEMISTRY POC A BE -12 -2-2 - 2 10/23 LOW [facility] CHEMISTRY POC A O2 Sat 98.0 95.0 - 10/23 Normal [place] 100.0 [facility] CHEMISTRY Bili Direct 0.4 0.0 - 0.3 10/23 [facility] CHEMISTRY Lipase Lvl 54 73 - 393 10/23 LOW [facility] CHEMISTRY Amylase Lvl 28 25 - 115 10/23 Normal [facility] CHEMISTRY B/C Ratio 10 6 - 25 10/23 Normal [facility] BLOOD BANK Antibody Scrn Negative 10/23 Normal [facility] RESULTS (10/23/2012 01:00:00) Medical Center BLOOD BANK ABO/Rh A POS 10/23 Unknown [facility] RESULTS Medical Center URINALYSIS UA 0.1 - 1.0 10/23 NA [facility] Urobilinogen /2012 Medical Center URINALYSIS UA Sq Epi Moderate /LPF Few 10/23 ABN [facility] *ABN* Medical (10/23/2012 00:01:00) Center URINALYSIS UA Leuk Est Negative Negative 10/23 Normal [facility] (10/23/2012 00:01:00) Medical Center URINALYSIS UA Nitrite Negative Negative 10/23 Normal [facility] (10/23/2012 00:01:00) Medical Center URINALYSIS UA Blood Negative Negative 10/23 Normal [facility] (10/23/2012 00:01:00) Medical Center URINALYSIS UA Glucose >=1000 mg/dL Negative 10/23 ABN [facility] *ABN* Medical (10/23/2012 00:01:00) Center URINALYSIS UA Protein 10 mg/dL Negative 10/23 ABN [facility] *ABN* Medical (10/23/2012 00:01:00) Center URINALYSIS UA pH 5.0 5.0 - 8.0 10/23 Normal [facility] URINALYSIS UA WBC 1 0 - 5 10/23 Normal [facility] URINALYSIS UA Bili Negative Negative 10/23 NA [facility] *NA* Medical (10/23/2012 00:01:00) Center URINALYSIS UA Ketones >=150 mg/dL Negative 10/23 ABN [facility] *ABN* Medical (10/23/2012 00:01:00) Center URINALYSIS UA Spec Grav 1.015 <=1.030 10/23 Normal [facility] URINALYSIS UA Turbidity Clear Clear 10/23 Normal [facility] (10/23/2012 00:01:00) [facility] URINALYSIS UA Color Light Yellow Yellow 10/23 NA [facility] *NA* Medical (10/23/2012 00:01:00) Center BEDSIDE Gluc POC 265 70 - 99 10/08 HI <sup>1</sup>I [facility] GLUCOSE [facility] nterpretive Medical TESTING Data: Center Upper Reportable Limit: 200 mg/dL. BEDSIDE Comment1 Notify 10/08 NA [facility] GLUCOSE RN/MD /2012 Medical TESTING Center BEDSIDE Comment1 Notify 10/08 NA [facility] GLUCOSE RN/MD /2012 Medical TESTING Center BEDSIDE Gluc POC 204 70 - 99 10/08 HI <sup>2</sup>I [facility] GLUCOSE [facility] nterpretive Medical TESTING Data: Center Upper Reportable Limit: 200 mg/dL. CHEMISTRY Phosphorus 2.7 2.5 - 4.5 10/08 Normal [facility] CHEMISTRY Magnesium Lvl 1.6 1.8 - 2.4 10/08 LOW [facility] CHEMISTRY Ca Ion 1.17 1.16 - 02 Normal [facility] 1. [facility] CHEMISTRY Ca Norm 1.18 1.16 - 02 Normal [facility] 1. [facility] CHEMISTRY Ca Ion mgdL 4.68 4.65 - 02 Normal [facility] 5. [facility] CHEMISTRY Ca Norm mgdL 4.72 4.65 - 10/08 Normal [facility] 5. [facility] CHEMISTRY AGAP 17.6 10.0 - 10/08 Normal [facility] 20.0 [facility] CHEMISTRY eGFR 109 10/08 NA [...] CO2 24 24 - 32 10/08 Normal [facility] CHEMISTRY Calcium Lvl 8.5 8.5 - 10.5 10/08 Normal [facility] CHEMISTRY Potassium Lvl 3.6 3.5 - 5.1 10/08 Normal [facility] CHEMISTRY Chloride Lvl 96 95 - 109 10/08 [facility] [facility] CHEMISTRY Creatinine 0.6 0.5 - 1.4 10/08 Normal [facility] CHEMISTRY Sodium Lvl 134 135 - 145 10/08 LOW [facility] CHEMISTRY Glucose Lvl 129 70 - 99 10/08 HI <sup>7</sup>I nterpretive Medical Data: Adult Center reference range values reflect the clinical guidelines
of the [place] [employer]. CHEMISTRY BUN 4 7 - 22 10/08 LOW [facility] HEMATOLOGY Monocytes # 1.1 0.0 - 0.8 10/08 HI [facility] HEMATOLOGY Eosinophils # 0.3 0.0 - 0.5 10/08 Normal [facility] HEMATOLOGY Basophils # 0.1 0.0 - 0.2 10/08 Normal [facility] HEMATOLOGY Microcyte 1+ None Seen 10/08 [facility] *ABN* /2012 Medical (10/08/2012 03:57:00) Center HEMATOLOGY Segs 55.7 45.0 - 10/08 Normal [facility] [place] 75.0 /2013 [facility] HEMATOLOGY Lymphocytes 31.3 20.0 - 02/ Normal [place] 40.0 /2012 [facility] HEMATOLOGY Monocytes 10.0 2.0 - 12.0 02/ Normal [facility] HEMATOLOGY Eosinophils 2.5 0.0 - 4.0 02/ Normal [facility] HEMATOLOGY Segs-Bands # 6.1 1.5 - 8.1 02/ Normal [facility] HEMATOLOGY Basophils 0.5 0.0 - 1.0 02/ Normal [facility] HEMATOLOGY Lymphocytes # 3.4 1.0 - 5.5 02/ Normal [facility] HEMATOLOGY RDW 16.9 11.5 - 02/ [facility] 14.5 /2012 [facility] HEMATOLOGY Platelet 218 133 - 450 02/ Normal /2012 [facility] HEMATOLOGY WBC 10.9 3.7 - 10.4 02/ [facility] HEMATOLOGY RBC 4.35 4.20 - 02 Normal [facility] 5.40 [facility] HEMATOLOGY MPV 9.7 7.4 - 10.4 02/ Normal [facility] HEMATOLOGY Hgb 10.4 12.0 - 02/ LOW [facility] 16.0 /2012 [facility] HEMATOLOGY Hct 32.7 36.0 - 02/ [facility] 48.0 /2012 [facility] HEMATOLOGY MCHC 31.8 32.0 - 02/ [facility] 36.0 /2012 [facility] HEMATOLOGY MCV 75.2 81.0 - 02/ [facility] 99.0 /2012 [facility] HEMATOLOGY MCH 23.9 27.0 - 02/ [facility] 31.0 /2012 [facility] BEDSIDE Comment1 Notify 10/08 NA [facility] GLUCOSE RN/MD /2012 Medical TESTING Center BEDSIDE Gluc POC 247 70 - 99 10/08 HI <sup>3</sup>I [facility] GLUCOSE Lifscn /2012 nterpretive Medical TESTING Data: Center Upper Reportable Limit: 200 mg/dL. CHEMISTRY Magnesium Lvl 2.1 1.8 - 2.4 10/07 Normal [facility] CHEMISTRY Ca Norm 1.16 1.16 - 02 [facility] 1.30 [facility] CHEMISTRY Ca Ion mgdL 4.72 4.65 - 02 [facility] 5.20 /2012 [facility] CHEMISTRY Ca Norm mgdL 4.64 4.65 - 02 LOW [facility] 5.20 [facility] CHEMISTRY Ca Ion 1.18 1.16 - 02 Normal [facility] 1.30 [facility] CHEMISTRY Phosphorus 2.6 2.5 - 4.5 10/07 Normal [facility] CHEMISTRY Calcium Lvl 8.1 8.5 - 10.5 10/07 LOW [facility] CHEMISTRY AGAP 19.4 10.0 - 10/07 Normal [facility] 20.0 [facility] CHEMISTRY eGFR 116 10/07 NA <sup>5</sup>R [...] CHEMISTRY BUN 6 7 - 22 10/07 [facility] CHEMISTRY Glucose Lvl 99 70 - 99 10/07 Normal <sup>8</sup>I nterpretive Medical Data: Adult Center reference range values reflect the clinical guidelines
of the [place] [employer]. CHEMISTRY Creatinine 0.5 0.5 - 1.4 10/07 Normal [facility] Lvl [facility] CHEMISTRY Potassium Lvl 3.4 3.5 - 5.1 10/07 LOW [facility] CHEMISTRY Sodium Lvl 135 135 - 145 10/07 Normal [facility] CHEMISTRY CO2 24 24 - 32 10/07 Normal [facility] CHEMISTRY Chloride Lvl 95 95 - 109 10/07 Normal [facility] HEMATOLOGY MCHC 31.8 32.0 - 02/ [facility] [place] 36.0 /2012 [facility] HEMATOLOGY MCH 24.1 27.0 - 02 [facility] [place] 31.0 [facility] HEMATOLOGY MCV 75.7 81.0 - 02 [facility] [place] 99.0 /2012 [facility] HEMATOLOGY Hct 31.0 36.0 - 02/ [facility] [place] 48.0 /2012 [facility] HEMATOLOGY Hgb 9.9 12.0 - 02 [facility] [place] 16.0 /2012 [facility] HEMATOLOGY MPV 9.1 7.4 - 10.4 02 Normal [facility] HEMATOLOGY Platelet 222 133 - 450 02 Normal [facility] HEMATOLOGY RDW 16.8 11.5 - 10/07 [facility] 14.5 /2012 [facility] HEMATOLOGY RBC 4.10 4.20 - 10/07 [facility] [place] 5.40 /2012 [facility] HEMATOLOGY WBC 13.8 3.7 - 10.4 10/07 [facility] HEMATOLOGY Segs-Bands # 9.6 1.5 - 8.1 02 [facility] HEMATOLOGY Basophils 0.3 0.0 - 1.0 02 Normal [facility] HEMATOLOGY Eosinophils 1.0 0.0 - 4.0 10/07 Normal [facility] HEMATOLOGY Microcyte 1+ None Seen 10/07 [facility] *ABN* /2012 Medical (10/07/2012 03:25:00) [facility] HEMATOLOGY Lymphocytes # 2.9 1.0 - 5.5 02 Normal [facility] HEMATOLOGY Eosinophils # 0.1 0.0 - 0.5 02 Normal [facility] HEMATOLOGY Monocytes # 1.2 0.0 - 0.8 02 [facility] HEMATOLOGY Monocytes 8.8 2.0 - 12.0 02 Normal [facility] HEMATOLOGY Lymphocytes 20.8 20.0 - 02 Normal [facility] 40.0 [facility] HEMATOLOGY Segs 69.1 45.0 - 10/07 Normal [place] 75.0 [facility] URINALYSIS UA Glucose 500mg/dL 10/06 NA [facility] URINALYSIS UA 0.1 - 1.0 10/06 [facility] Urobilinogen /2012 [facility] URINALYSIS Micro? Performed 10/06 NA [facility] *NA* Medical (10/06/2012 11:42:00) Center URINALYSIS UA [place] Yeast Moderate /HPF None [facility] 10[facility]2012 11:42:00[facility] Center URINALYSIS UA RBC 3 0 - 2 10/06 HI [facility] URINALYSIS UA Bacteria Many /HPF None Seen 10/06 [facility] (10/06/2012 11:42:00) Center URINALYSIS UA WBC 3 0 - 5 10/06 Normal [facility] URINALYSIS UA Leuk Est Negative Negative 10/06 Normal [facility] (10/06/2012 11:42:00) Medical Center URINALYSIS UA Nitrite Negative Negative 10/06 Normal [facility] (10/06/2012 11:42:00) [facility] URINALYSIS UA Sq Epi Many /LPF Few 10/06 ABN [facility]* Medical (10/06/2012 11:42:00) Center URINALYSIS UA Bili Negative Negative 10/06 [facility]2012 11:42:00[facility] Center URINALYSIS UA Blood Negative Negative 10/06 Normal [facility] (10/06/2012 11:42:00) [facility] Center URINALYSIS UA pH 5.5 5.0 - 8.0 10/06 Normal [facility] URINALYSIS UA Protein 20 mg/dL Negative 10/06 [facility] (10/06/2012 11:42:00) Center URINALYSIS UA Ketones >=150 mg/dL Negative 10/06 ABN [facility]* Medical (10/06/2012 11:42:00) Center URINALYSIS UA Color Yellow Yellow 10/06 [facility] (10/06/2012 11:42:00) Center URINALYSIS UA Turbidity Slight Clear 10/06 [facility] (10/06/2012 11:42:00) Center URINALYSIS UA Spec Grav 1.011 <=1.030 10/06 Normal [facility] Center URINALYSIS UA Mucus Few /LPF None Seen 10/06 NA [facility] *NA* /2012 Medical (10/06/2012 11:42:00) Center Microbiolog Culture: 10/06 [facility] y Urine [facility] CHEMISTRY Phosphorus 2.5 2.5 - 4.5 10/06 Normal [facility] CHEMISTRY Magnesium Lvl 1.5 1.8 - 2.4 10/06 LOW [facility] CHEMISTRY eGFR 76 10/06 NA <sup>6</sup>R [...] Lvl 3.9 3.5 - 5.1 10/06 Normal [facility] CHEMISTRY Chloride Lvl 97 95 - 109 10/06 Normal [facility] CHEMISTRY Calcium Lvl 8.3 8.5 - 10.5 10/06 LOW [facility] CHEMISTRY CO2 22 24 - 32 10/06 [facility] CHEMISTRY Glucose Lvl 234 70 - 99 10/06 HI <sup>9</sup>I nterpretive Medical Data: Adult Center reference range values reflect the clinical guidelines
of the [place] [employer]. CHEMISTRY Creatinine 0.9 0.5 - 1.4 10/06 Normal [facility] CHEMISTRY BUN 9 7 - 22 10/06 Normal [facility] CHEMISTRY Sodium Lvl 134 135 - 145 10/06 [facility] CHEMISTRY AGAP 18.9 10.0 - 10/06 Normal [place] 20.0 /2012 [facility] HEMATOLOGY Segs-Bands # 13.3 1.5 - 8.1 10/06 [facility] HEMATOLOGY Basophils 0.2 0.0 - 1.0 10/06 Normal [facility] HEMATOLOGY Eosinophils 0.1 0.0 - 4.0 10/06 Normal [facility] HEMATOLOGY Monocytes 6.7 2.0 - 12.0 10/06 Normal [facility] HEMATOLOGY Segs 81.7 45.0 - 10/06 [facility] [place] 75.0 /2012 Medical Center HEMATOLOGY Lymphocytes 11.3 20.0 - 10/06 LOW [place] 40.0 /2012 [facility] HEMATOLOGY Microcyte 1+ None Seen 10/06 [facility] [place] *ABN* /2012 Medical (10/06/2012 04:25:00) [facility] HEMATOLOGY Monocytes # 1.1 0.0 - 0.8 10/06 [facility] HEMATOLOGY Lymphocytes # 1.8 1.0 - 5.5 10/06 Normal [facility] HEMATOLOGY RBC 4.28 4.20 - 10/06 Normal [place] 5.40 /2012 Medical Center HEMATOLOGY WBC 16.3 3.7 - 10.4 10/06 [facility] HEMATOLOGY Hgb 10.3 12.0 - 10/06 [facility] [place] 16.0 /2012 [facility] HEMATOLOGY Hct 32.6 36.0 - 10/06 [facility] [place] 48.0 /2012 Medical Center HEMATOLOGY MCH 24.0 27.0 - 10/06 [facility] [place] 31.0 /2012 [facility] HEMATOLOGY MCV 76.1 81.0 - 10/06 [facility] [place] 99.0 /2012 Medical Center HEMATOLOGY MCHC 31.5 32.0 - 10/06 [facility] [place] 36.0 /2012 [facility] HEMATOLOGY RDW 17.2 11.5 - 10/06 [facility] [place] 14.5 [facility] HEMATOLOGY Platelet 248 133 - 450 10/06 [facility] HEMATOLOGY MPV 9.5 7.4 - 10.4 10/06 [facility] CHEMISTRY Ca Norm 1.07 1.16 - 10/05 [facility] [place] 1.30 [facility] CHEMISTRY Ca Ion mgdL 4.36 4.65 - 10/05 [facility] [place] 5.20 [facility] CHEMISTRY Ca Norm mgdL 4.28 4.65 - 10/05 LOW [facility] 5.20 [facility] CHEMISTRY Ca Ion 1.09 1.16 - 10/05 LOW [facility] 1.30 [facility] HEMATOLOGY Basophils # 0.1 0.0 - 0.2 10/05 Normal [facility] HEMATOLOGY Eosinophils # 0.1 0.0 - 0.5 10/05 Normal [facility] CHEMISTRY U Preg Negative Negative 10/03 Normal [facility] (10/03/2012 06:31:00) [facility] BLOOD BANK ABO/Rh A POS 10/03 Unknown [facility] RESULTS /2012 [facility] BLOOD BANK Antibody Scrn Negative 10/03 Normal [facility] RESULTS (10/03/2012 06:00:00) [facility] CHEMISTRY Total Protein 7.8 6.4 - 8.4 09/23 Normal [facility] CHEMISTRY AST 31 0 - 37 09/23 Normal [facility] CHEMISTRY Bili Total 0.3 0.2 - 1.3 09/23 Normal [facility] CHEMISTRY ALT 50 0 - 65 09/23 Normal [facility] CHEMISTRY Albumin Lvl 3.6 3.5 - 5.0 09/23 Normal [facility] CHEMISTRY Alk Phos 150 39 - 136 09/23 HI [facility] CHEMISTRY B/C Ratio 21 6 - 25 09/23 Normal [facility] CHEMISTRY Globulin 4.2 2.0 - 4.0 09/23 HI [facility] CHEMISTRY A/G Ratio 0.9 0.7 - 1.6 09/23 Normal [facility] HEMATOLOGY Hypochrom Slight None Seen 09/23 Normal [facility] (09/23/2012 12:35:00) /2012 [facility] HEMATOLOGY Elliptocyte Slight None Seen 09/23 ABN [facility] *ABN* /2012 Medical (09/23/2012 12:35:00) Center HEMATOLOGY Basophils # 0.1 0.0 - 0.2 09/23 Normal [facility] HEMATOLOGY Plt Morph Normal 09/23 Normal [facility] (09/23/2012 12:35:00) [facility] URINALYSIS UA 0.1 - 1.0 09/23 NA [facility] Urobilinogen /2012 [facility] URINALYSIS UA Nitrite Negative Negative 09/23 Normal [facility] (09/23/2012 12:35:00) Medical Center URINALYSIS UA Blood Negative Negative 09/23 Normal [facility] (09/23/2012 12:35:00) Medical Center URINALYSIS UA Leuk Est Negative Negative 09/23 Normal [facility] (09/23/2012 12:35:00) Medical Center URINALYSIS Micro? Not Indicated 09/23 NA [facility] (09/23/2012 12:35:00) Center URINALYSIS UA Ketones Negative mg/dL Negative 09/23 NA [facility] * [facility] (09/23/2012 12:35:00) Center URINALYSIS UA Bili Negative Negative 09/23 [facility] (09/23/2012 12:35:00) Center URINALYSIS UA Protein Negative mg/dL Negative 09/23 Normal [facility] (09/23/2012 12:35:00) Medical Center URINALYSIS UA pH 5.0 5.0 - 8.0 09/23 Normal [facility] Center URINALYSIS UA Glucose Negative mg/dL Negative 09/23 NA [facility] * [facility] (09/23/2012 12:35:00) Center URINALYSIS UA Color Light Yellow Yellow 09/23 NA [facility] (09/23/2012 12:35:00) Center URINALYSIS UA Spec Grav 1.004 <=1.030 09/23 Normal [facility] Center URINALYSIS UA Turbidity Clear Clear 09/23 Normal [facility] (09/23/2012 12:35:00) Medical Center BEDSIDE Gluc POC 153 70 - 99 06/28 HI <sup>1</sup>I [facility] GLUCOSE Lif[facility] nterpretive Medical TESTING Data: Center Upper Reportable Limit: 200 mg/dL. CHEMISTRY U Preg Negative Negative 06/28 Normal [facility] (06/28/2012 07:27:00) Medical Center Pathology Reports No Data Provided for This Section Diagnostic Reports Report Value Date Source Abdomen/Pelvis w EXAM: CT ABDOMEN WITH CONTRAST 07/12/2013 [facility] Medical contrast CT EXAM: CT PELVIS [...] views EXAM: XR ABDOMEN 1 VIEW 04/03/2013 [facility] DATE: March 25 90,013. INDICATION: Nausea. COMPARISON: [...] 1view EXAM: XR CHEST 1 VIEW 04/02/2013 [facility] DATE: 2013-04-02 1638 hours INDICATION: Chest pain [...] Chest 1view EXAM: CHEST 1 VIEW 03/07/2013 [facility] DATE: Mar 07, 2013 07:45:00 AM INDICATION: [...] 2 views EXAM: CHEST 2 VIEWS 03/06/2013 [facility] DATE: Mar 06, 2013 06:47:00 PM INDICATION: [...] Comments Source Systolic (mm Hg) 124 08/13/2013 [facility] Respitory Rate 18 08/13/2013 [facility] Temperature Oral (F) 98.8 F 08/13/2013 [facility] Heart Rate 102 08/13/2013 [facility] Diastolic (mm Hg) 46 08/13/2013 [facility] Systolic (mm Hg) 107 08/13/2013 [facility] Respitory Rate 18 08/13/2013 [facility] Diastolic (mm Hg) 63 08/13/2013 [facility] Heart Rate 103 08/13/2013 [facility] Heart Rate 105 08/13/2013 [facility] Respitory Rate 18 08/13/2013 [facility] Systolic (mm Hg) 117 08/13/2013 [facility] Diastolic (mm Hg) 70 08/13/2013 [facility] Weight 81.818 08/13/2013 [facility] Height 162.56 cm 08/13/2013 [facility] Temperature Oral (F) 98.4 F 08/13/2013 [facility] Diastolic (mm Hg) 61 07/15/2013 [facility] Temperature Oral (F) 97.7 F 07/15/2013 [facility] Systolic (mm Hg) 117 07/15/2013 [facility] Respitory Rate 18 07/15/2013 [facility] Heart Rate 90 07/15/2013 [facility] Respitory Rate 18 07/14/2013 [facility] Heart Rate 104 07/14/2013 [facility] Diastolic (mm Hg) 46 07/14/2013 [facility] Systolic (mm Hg) 91 07/14/2013 [facility] Diastolic (mm Hg) 61 07/14/2013 [facility] Systolic (mm Hg) 95 07/14/2013 [facility] Respitory Rate 18 07/14/2013 [facility] Heart Rate 120 07/14/2013 [facility] Temperature Oral (F) 97.5 F 07/14/2013 [facility] Temperature Oral (F) 97.6 F 07/14/2013 [facility] Height 162.56 cm 07/12/2013 [facility] Weight 86.364 07/12/2013 [facility] Temperature Oral (F) 97.1 F 04/03/2013 [facility] Respitory Rate 18 04/03/2013 [facility] Heart Rate 79 04/03/2013 [facility] Diastolic (mm Hg) 66 04/03/2013 [facility] Systolic (mm Hg) 94 04/03/2013 [facility] Diastolic (mm Hg) 28 04/03/2013 [facility] Systolic (mm Hg) 116 04/03/2013 [facility] Respitory Rate 20 04/03/2013 [facility] Heart Rate 100 04/03/2013 [facility] Temperature Oral (F) 97.0 F 04/03/2013 [facility] Height 162.56 cm 04/03/2013 [facility] Weight 90 04/03/2013 [facility] Height 162.56 cm 04/02/2013 [facility] Weight 90 04/02/2013 [facility] Systolic (mm Hg) 132 03/09/2013 [facility] Diastolic (mm Hg) 72 03/09/2013 [facility] Heart Rate 114 03/09/2013 [facility] Temperature Oral (F) 97.7 F 03/09/2013 [facility] Respitory Rate 20 03/09/2013 [facility] Temperature Oral (F) 97.7 F 03/09/2013 [facility] Heart Rate 108 03/09/2013 [facility] Systolic (mm Hg) 143 03/09/2013 [facility] Respitory Rate 18 03/09/2013 [facility] Diastolic (mm Hg) 81 03/09/2013 [facility] Heart Rate 115 03/09/2013 [facility] Diastolic (mm Hg) 70 03/09/2013 [facility] Systolic (mm Hg) 153 03/09/2013 [facility] Respitory Rate 18 03/09/2013 [facility] Temperature Oral (F) 97.5 F 03/09/2013 [facility] Weight 90 03/07/2013 [facility] Height 162.56 cm 03/07/2013 [facility] Height 162.56 cm 03/06/2013 [facility] Weight 90 03/06/2013 [facility] Systolic (mm Hg) 127 12/07/2012 [facility] Diastolic (mm Hg) 49 12/07/2012 [facility] Heart Rate 90 12/07/2012 [facility] Temperature Oral (F) 98.3 F 12/07/2012 [facility] Respitory Rate 18 12/07/2012 [facility] Systolic (mm Hg) 104 12/07/2012 [facility] Temperature Oral (F) 98.6 F 12/07/2012 [facility] Respitory Rate 18 12/07/2012 [facility] Heart Rate 78 12/07/2012 [facility] Diastolic (mm Hg) 57 12/07/2012 [facility] Heart Rate 89 12/07/2012 [facility] Temperature Oral (F) 97.6 F 12/07/2012 [facility] Respitory Rate 18 12/07/2012 [facility] Systolic (mm Hg) 105 12/07/2012 [facility] Diastolic (mm Hg) 51 12/07/2012 [facility] Weight 100 11/29/2012 [facility] Height 162.56 cm 11/29/2012 [facility] Weight 100.568 11/29/2012 [facility] Height 162.56 cm 11/29/2012 [facility] Weight 101.364 11/28/2012 [facility] Height 162.56 cm 11/28/2012 [facility] Diastolic (mm Hg) 55 11/17/2012 [facility] Systolic (mm Hg) 117 11/17/2012 [facility] Diastolic (mm Hg) 70 11/17/2012 [facility] Systolic (mm Hg) 118 11/17/2012 [facility] Diastolic (mm Hg) 61 11/17/2012 [facility] Systolic (mm Hg) 154 11/17/2012 [facility] Temperature Oral (F) 97.8 F 11/17/2012 [facility] Temperature Oral (F) 97.9 F 11/17/2012 [facility] Temperature Oral (F) 98.6 F 11/17/2012 [facility] Height 162.56 cm 11/17/2012 [facility] Weight 103.21 11/17/2012 [facility] Respitory Rate 18 11/17/2012 [facility] Height 162.56 cm 11/16/2012 [facility] Weight 100 11/16/2012 [facility] Diastolic (mm Hg) 58 11/14/2012 [facility] Systolic (mm Hg) 121 11/14/2012 [facility] Respitory Rate 20 11/14/2012 [facility] Heart Rate 84 11/14/2012 [facility] Temperature Oral (F) 98.0 F 11/14/2012 [facility] Respitory Rate 20 11/14/2012 [facility] Systolic (mm Hg) 103 11/14/2012 [facility] Diastolic (mm Hg) 54 11/14/2012 [facility] Temperature Oral (F) 98.0 F 11/14/2012 [facility] Heart Rate 83 11/14/2012 [facility] Diastolic (mm Hg) 68 11/14/2012 [facility] Respitory Rate 20 11/14/2012 [facility] Heart Rate 79 11/14/2012 [facility] Systolic (mm Hg) 136 11/14/2012 [facility] Temperature Oral (F) 98.4 F 11/14/2012 [facility] Height 162.56 cm 11/06/2012 [facility] Weight 100 11/06/2012 [facility] Height 162.56 cm 11/06/2012 [facility] Weight 100 11/06/2012 [facility] Height 162.56 cm 11/06/2012 [facility] Weight 104.545 11/06/2012 [facility] Systolic (mm Hg) 131 11/01/2012 [facility] Diastolic (mm Hg) 62 11/01/2012 [facility] Systolic (mm Hg) 125 11/01/2012 [facility] Diastolic (mm Hg) 62 11/01/2012 [facility] Systolic (mm Hg) 155 10/31/2012 [facility] Diastolic (mm Hg) 54 10/31/2012 [facility] Temperature Oral (F) 99.7 F 10/31/2012 [facility] Temperature Oral (F) 96.7 F 10/31/2012 [facility] Temperature Oral (F) 98.1 F 10/31/2012 [facility] Respitory Rate 19 10/31/2012 [facility] Respitory Rate 19 10/31/2012 [facility] Respitory Rate 19 10/31/2012 [facility] Weight 78.2 10/24/2012 [facility] Heart Rate 126 10/23/2012 [facility] Heart Rate 130 10/23/2012 [facility] Weight 113.636 10/23/2012 [facility] Height 162.56 cm 10/23/2012 [facility] Heart Rate 119 10/23/2012 [facility] Height 162.56 cm 10/23/2012 [facility] Systolic (mm Hg) 123 10/08/2012 [facility] Respitory Rate 19 10/08/2012 [facility] Diastolic (mm Hg) 51 10/08/2012 [facility] Heart Rate 81 10/08/2012 [facility] Temperature Oral (F) 98.8 F 10/08/2012 [facility] Diastolic (mm Hg) 55 10/08/2012 [facility] Respitory Rate 20 10/08/2012 [facility] Systolic (mm Hg) 136 10/08/2012 [facility] Heart Rate 82 10/08/2012 [facility] Temperature Oral (F) 98.9 F 10/08/2012 [facility] Diastolic (mm Hg) 47 10/08/2012 [facility] Systolic (mm Hg) 107 10/08/2012 [facility] Temperature Oral (F) 98.1 F 10/08/2012 [facility] Respitory Rate 18 10/08/2012 [facility] Heart Rate 75 10/08/2012 [facility] Weight 118.200 10/03/2012 [facility] Height 162.56 cm 10/03/2012 [facility] Weight 118.182 09/23/2012 [facility] Height 162.56 cm 09/23/2012 [facility] Diastolic (mm Hg) 57 06/28/2012 [facility] Heart Rate 104 06/28/2012 [facility] Respitory Rate 18 06/28/2012 [facility] Systolic (mm Hg) 147 06/28/2012 [facility] Systolic (mm Hg) 153 06/28/2012 [facility] Diastolic (mm Hg) 61 06/28/2012 [facility] Respitory Rate 16 06/28/2012 [facility] Systolic (mm Hg) 136 06/28/2012 [facility] Diastolic (mm Hg) 52 06/28/2012 [facility] Respitory Rate 18 06/28/2012 [facility] Temperature Oral (F) 98.5 F 06/28/2012 [facility] Heart Rate 104 06/28/2012 [facility] Weight 118.182 06/14/2012 [facility] Height 162.56 cm 06/14/2012 [facility] Encounters Location Location Encounter Encounter Reason Attending ADM DC Status Source Details Type Number For Provider Date Date Visit [facility] DS [id number] DSU/ WOLFGANG 06/28 Active [facility] REFLUX SUSHILA /2011 Medical [facility] Inpatient [id number] WOLFGANG 10/03 10/08 Discharg [facility] /2012 ed Medical [facility] Inpatient [id number] N/V DARELL 10/23 11/01 Active [facility] DEHYDRAT SDRINGOLA- /2012 Medical [facility] MARANGA [facility] Inpatient [id number] LAVONE 11/05 11/14 Discharg [facility] ROSE /2012 ed Medical [facility] OU [id number] CHIP 11/16 11/17 Discharg [facility] MARKUS /2012 [facility] Inpatient [id number] JUAN J 11/29 12/07 Discharg [facility] BRANDO /2012 ed Medical [facility] OU [id number] SANJUANA 03/07 03/09 Discharg [facility] OSUAGWU /2012 ed [facility] OU [id number] JEANNIE 04/02 04/03 Discharg [facility] ADOLFO /2012 ed Medical [facility] OU [id number] GASTROPA JEANNIE 07/12 07/14 Active [facility] ADOLFO /2012 Medical [facility] JACKIE [id number] WOLFGANG 07/26 07/27 Discharg [facility] SUSHILA /2012 [facility] Emergency [id number] KATELYN 08/13 08/13 Discharg [facility] BUBLEWICZ /2012 ed [facility] Outpatient [id number] SERGO WHITFIELD Cancel [facility] Procedures Procedure Code Date Perfomer Comments Source section [id number] [facility] Cholecystectomy [id number] [facility] <sup>1</sup> [facility] Hand repair [id number], x'2 [facility] <sup>2</sup> [facility] Tonsillectomy [id number] [facility] <sup>3</sup> [facility] Bypass of stomach [id number] [facility] Rotator cuff repair [id number] [facility] Heart procedure [id number] 1cardiac [facility] <sup>1</sup> stent for [facility] Assessment and Plan No Data Provided for This Section Plan of Care No Data Provided for This Section Social History No Data Provided for This Section Family History No Data Provided for This Section Advance Directives No Data Provided for This Section Functional Status No Data Provided for This Section
--- OUTSIDE RECORDS SUMMARY | 2019-05-20 23:06 | XMS REPORT | CCD ---
:1965 Author Organization [facility] Care Team Providers Name Role Phone Sukhwinder Renteria Referring Provider Allergies, Adverse Reactions, Alerts Substance Reaction Status NKDA Active Problem List Condition Effective Dates Status Acid reflux Resolved Anemia Resolved Anxiety Resolved Arthritis Resolved Depression Resolved Diabetes mellitus type 1 Resolved Edema of lower extremity Resolved Fibromyalgia Resolved Hyperlipidemia Resolved Hypertension Resolved Medications Medication Instructions Start Date End Date Status [place] 325 mg-10 mg / 15 mL, Route: [...] Duration: 30 day, Stop date: 11/02/12 10:59:00 [place] 325 mg-10 mg / 30 mL, Route: PO, 10/04/2012 10/05/2012 Discontinued 15 mL oral solution Drug Form: SOLN, Dosing Weight 118.2, kg, Q4H, PRN Pain Score 6-10, Start date: 10/04/12 17:20:00, Duration: 30 day, Stop date: 11/03/12 17:19:00 [place] 325 mg-10 mg / 15 mL, Route: [...] 14:28:00, PRN Blood Glucose Results Blistex Lip [place] Route: TOP, Dosing 10/06/2012 10/06/2012 Deleted Weight [...] /LPF] Few /LPF *NA* (10/06/2012 11:42:00) UA [place] Yeast [None Seen /HPF] Moderate /HPF [...] values reflect the clinical guidelines of the [place] [employer].8Interpretive Data: Adult reference range values reflect the clinical guidelines of the [place] [employer].9Interpretive Data: Adult reference range values reflect the clinical guidelines of the [place] [employer].HEMATOLOGY Most recent to oldest 1 [...] Catch FREE TEXT SOURCE: FINAL REPORTS Final Zieywc37,000 - 50,000 CFU/mL Enterococcus SpeciesPRELIMINARY REPORTS Preliminary Mnpoat11,000 - 50,000 CFU/ mL Enterococcus Species ; Sensitivity PendingSUSCEPTIBILITY REPORT ENTERO Antibiotic INTERP. VDIL Ampicillin S Levofloxacin S Nitrofurantoin S Tetracycline R Vancomycin S Procedures Procedures Date Related Diagnosis section Cholecystectomy 1 Hand repair 2 Tonsillectomy 3 , [id number]
--- OUTSIDE RECORDS SUMMARY | 2019-05-20 23:07 | XMS REPORT | CCD ---
[...] Hypertension Resolved MRSA1, 2 10/23/2012 Active 1nares 10/23/201224819Ykpiidn added by Discern Expert. Medications Medication Instructions [...] Duration: 30 day, Stop date: 12/06/12 1:48:00 [place] 5/325 oral tablet 1 tab, PO, Q6H, [...] Duration: 30 day, Stop date: 12/08/12 10:44:00 [place] 5/325 oral tablet 1 tab, Route: PO, [...] INJ, Q2H, Dosing Weight 100, kg, Total hmwv=3219 mg, Start date: 11/14/12 8:00:00, Duration: 2 [...] 11/08/2012 11/08/2012 Canceled PO, Drug form: TAB, [id number], Dosing Weight 100, kg, Start date: 11/08/12 [...] [Negative] Negative 1 (11/12/2012 21:54:26) 1Interpretive Data: [employer]™igene Clostridium difficile assay utilizes loop-mediated isothermalDNA amplification (LAMP) technology to detect a 204 bp region of the tcdA gene within the PaLoc genesegment present in all known toxigenic C. difficile strains. The assay utilizes FDA cleared IVD reagents. Performance characteristics have been verified by the Molecular Diagnostic Laboratory within the [facility]. 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 Read back OK.12Interpretive Data: Adult reference range values reflect the clinical guidelines of the [place] [employer].13Result Comment: Critical Result(s) called to [...] 10.0 240 Poor Control, take action to qnswq04Imrfgi Comment : Critical Result(s) called leslie Rose [...] Catch FREE TEXT SOURCE: FINAL REPORTS Final Lxygdt53,000 - 100,000 CFU/mL Enterococcus SpeciesPRELIMINARY REPORTS Preliminary Dhmigy87,000 - 100,000 CFU/ mL Enterococcus Species Identification And Sensitivity PendingSUSCEPTIBILITY REPORT ENTERO Antibiotic INTERP. VDIL Ampicillin S Levofloxacin S Nitrofurantoin S Tetracycline R Vancomycin S
--- OUTSIDE RECORDS SUMMARY | 2019-05-20 23:08 | XMS REPORT | CCD ---
[...] Hypertension Resolved MRSA1, 2 10/23/2012 Active 1nares 10/23/201266947Pmxpgbx added by Discern Expert. Medications Medication Instructions [...] 1 doses or times, Dose= 2.2ml/kg, Max cneu=148jt -- "To be infused by Radiology Staff ONLY" 201211/16/2012 Discontinued Dose=2.2ml/kg, Max abaz=902sk -- "To be infused by Radiology Staff ONLY" calcium gluconate + Sodium 2,000 mg, 20 mL, Route: 11/17/2012 11/17/2012 Completed Chloride 0.9% IV 80 mL IVPB, ONCE, Dosing Weight 103.21, kg, Start date: 11/17/12 11:02:00, Stop date: 11/17/12 11:02:00 enoxaparin 40 mg, 0.4 mL, Route: 11/16/2012 11/17/2012 Discontinued SUB-Q, Drug form: INJ, maxkG57Y, Dosing Weight 100, kg, Start date: 11/16/12 [...] date: 11/16/12 13:40:00, Stop date: 11/16/12 13:40:00 [place] 5/325 oral tablet 1 tab, Route: PO, [...] the clinical guidelines of the [place] [employer].7Interpretive Data: Adult reference range values reflect the clinical guidelines of the [place] [employer].HEMATOLOGY Most recent to oldest [Reference [...]
--- OUTSIDE RECORDS SUMMARY | 2019-05-20 23:08 | XMS REPORT | CCD ---
:1965 Author Organization [facility] Care Team Providers Name Role Phone Nikhil Hager Consulting Provider Sukhwinder Renteria Consulting Provider Allergies, Adverse Reactions, Alerts Substance Reaction Status NKDA Active Problem List Condition Effective Dates Status Acid reflux Resolved Anemia Resolved Anxiety Resolved Arthritis Resolved Depression Resolved Diabetes mellitus type 1 Resolved Edema of lower extremity Resolved Fibromyalgia Resolved Hyperlipidemia Resolved Hypertension Resolved MRSA1, 2 10/23/2012 Active 1nares 10/23/201243084Dgmchww added by Discern Expert. Medications Medication Instructions [...] mg, 1 supp, 10/23/2012 11/01/2012 Discontinued Route: NE, Drug form: SUPP, Q6H, Dosing Weight 113.636, kg, PRN Fever, Start date: 10/23/12 0:37:00, Duration: 30 day, Stop date: 11/22/12 0:36:00 Visipaque 320mg/ml 126 mL, Route: IVP, Drug Form: SOLN, Dosing Weight 113.636 , kg, ONCALL, STAT, Start date: 10/23/12 16:52:00, Duration: 1 doses or times, Dose=2.2ml/kg, Max bnov=514lj -- "To be infused by Radiology Staff ONLY" 10/2310/23/2012 Completed Dose=2.2ml/kg, Max jarv=049vu -- "To be infused by Radiology Staff [...] mg, 1 supp, 10/24/2012 10/24/2012 Deleted Route: NE, Drug form: SUPP, ONCE, Dosing Weight 78.2, [...] Duration: 1 doses or times, Dose=2.2ml/kg, Max ecse=104gz -- "To be infused by Radiology Staff ONLY" 10/2310/23/2012 Completed Dose=2.2ml/kg, Max pkbp=292wl -- "To be infused by Radiology Staff [...] Molecular Diagnostic Laboratory within the [facility]. The Molecular Diagnostic Laboratory is authorized [...] guidelines of the [place] Diabetes Association.13Interpretive Data: Reference range is based on recommendations in the Endocrine Society Clinical Practice Guideline (J Clin Endocrinol Metab 2011;96:2961-3178)14Result Comment: Specimen Moderately Hemolyzed.15Result Comment: Critical Result(s) called to daisy otoole at 10/25/2012 01:18:09 REEL HOOKER by tac. Read back OK.16Result Comment: Critical Result(s) called to Maribel Bustos at 10/24/2012 13:23:46 REEL HOOKER by lwb . Readback OK.17Result Comment: Critical Result(s) called to Lyn King at 10/24/2012 09:52:38 REEL HOOKER by lwb . Read back OK.18Result Comment: Critical Result(s) called to Jelani Rasmussen at 10/25/2012 00: 47:48 REEL HOOKER by RM. Read back OK.19Result Comment: Critical Result(s) called to mariana bustos at _ 10/24/2012 13:37:22 CSTby_lss. Readback OK.20Result Comment : Critical Result(s) called to romero beltre at _10/24/2012 09:50:18 REEL HOOKER by_lss. Read back OK.21Interpretive Data: HbA1C% eAG(mg/dL) [...] Data: Heparin Therapeutic Range: 57 - 92 Ldgbfay44Bjtecziwrlye Data: Heparin Therapeutic Range: 57 - 92 Tqtohas96Tyagstinpzlb Data: Heparin Therapeutic Range: 57 - 92 Seconds Microbiology Reports PROCEDURE:Culture: Urine STATUS: Auth (Verified) BODY SITE: COLLECTED DATE/TIME: 10/23/2012 20:33:00 SOURCE: Urine,Straight Cath FREE TEXT SOURCE: FINAL REPORTS Final Iomsuc77,000 - 100,000 CFU/mL Gram Negative Rods , Lactose Fermenters , 2 Cache Types 50,000 - 100,000 CFU/mL Enterococcus Species [...]
--- OUTSIDE RECORDS SUMMARY | 2019-05-20 23:09 | XMS REPORT | CCD ---
:1965 Author Organization [facility] Care Team Providers Name Role Phone Marcela Michaelsbhumika [place] Consulting Provider Alberto Mata Consulting Provider Allergies, Adverse Reactions, Alerts Substance Reaction Status NKDA Active Problem List Condition Effective Dates Status Acid reflux Resolved Anemia Resolved Anxiety Resolved Arthritis Resolved Depression Resolved Diabetes mellitus type 1 Resolved Edema of lower extremity Resolved Fibromyalgia Resolved Hyperlipidemia Resolved Hypertension Resolved PA - Myocardial infarction 10/22/2012 Resolved MRSA1, 2, 3, 4 10/23/2012 Active Neuropathy Resolved - Nares - Kkdvq7owocu 10/23/201210008Tduohkb added by Discern Expert. Medications Medication Instructions [...] IVPB, Drug 12/02/2012 12/02/2012 Discontinued form: PDR/INJ, [id number], Dosing Weight 100, kg, Start date: 12/02/12 [...] 11/29/2012 11/29/2012 Discontinued SUB-Q, Drug form: INJ, rbtyU50B, Dosing Weight 101.364, kg, Start date: 11/29/12 [...] mg, 1 supp, Route: 12/04/2012 12/07/2012 Discontinued [place], Drug form: SUPP, Q4H, Dosing Weight 100, [...] date: 12/04/12 23:39:00, Stop date: 12/04/12 23:39:00 [place] 7.5/325 oral tablet 1 tab, Route: PO, [...] IVPB, Drug 11/29/2012 12/01/2012 Discontinued form: PDR/INJ, OGVD54F, Dosing Weight 100, kg, Start date: 11/29/12 [...] 7:47:00 Phenergan 25 mg rectal 1 supp, IL, Q6H, PRN, 9 11/29/2012 Ordered suppository supp, [...] Data: Heparin Therapeutic Range: 57 - 92 Btoggut25Bpoujdjcyafp Data: Heparin Therapeutic Range: 57 - 92 [...] Catch FREE TEXT SOURCE: FINAL REPORTS Final Inopae45,000 - 50,000 CFU/mL Yeast <10,000 CFU/mL Skin EsPRELIMINARY REPORTS Preliminary ReportNo Growth; Holding Procedures Procedures Date Related Diagnosis Heart procedure 1 1cardiac stent for PA
--- OUTSIDE RECORDS SUMMARY | 2019-05-20 23:10 | XMS REPORT | CCD ---
[...] 10/23/2012 Active Neuropathy Resolved - Nares/ - Tzdqp6mceoa 10/23/201229970Eanshsf added by Discern Expert. Medications Medication Instructions [...] 03/08/13 3:17:00, Stop date: 03/08/13 3:17:00 lidocaine-epi 1%-1:915272 1 ml, Route: SUB-Q, Drug 03/07/2013 03/07/2013 [...] date: 03/07/13 2:35:00, Stop date: 03/07/13 2:35:00 [place] 5/325 oral tablet 1 tab, PO, Q6H, [...] the clinical guidelines of the [place] [employer].8Interpretive Data: Adult reference range values reflect the clinical guidelines of the [place] [employer].9Interpretive Data: Adult reference range values reflect the clinical guidelines of the [place] [employer].HEMATOLOGY Most recent to oldest 1 [...]
--- OUTSIDE RECORDS SUMMARY | 2019-05-20 23:10 | XMS REPORT | CCD ---
:1965 Author Organization [facility] Care Team Providers Name Role Phone Robert Wooten Consulting Provider Allergies, Adverse Reactions, Alerts Substance Reaction Status NKDA Active Problem List Condition Effective Dates Status Acid reflux Resolved Anemia Resolved Anxiety Resolved Arthritis Resolved Depression Resolved Diabetes mellitus type 1 Resolved Edema of lower extremity Resolved Fibromyalgia Resolved Gastric ulcer Resolved Hyperlipidemia Resolved Hypertension Resolved CT - Myocardial infarction 10/22/2012 Resolved MRSA1, 2, 3, 4 10/23/2012 Active Neuropathy Resolved - Nares - Cddnq3zbxrr 10/23/201283735Pmolrmi added by Discern Expert. Medications Medication Instructions [...] [place] [employer].HEMATOLOGY Most recent to oldest [Reference [...]
--- OUTSIDE RECORDS SUMMARY | 2019-05-20 23:10 | XMS REPORT | CCD ---
:1965 Author Organization [facility] Care Team Providers Name Role Phone Alberto [...] 10/23/2012 Active Neuropathy Resolved - Nares - Khofp7sgclg 10/23/201249260Dcuvesa added by Discern Expert. Medications Medication Instructions [...]
--- OUTSIDE RECORDS SUMMARY | 2019-05-20 23:10 | XMS REPORT | CCD ---
[...] 10/23/2012 Active Neuropathy Resolved - Nares - Izinr5geyke 10/23/201224142Stidhfa added by Discern Expert. Medications Medication Instructions Start Date End Date Status acetaminophen-hydrocod 1 tab, Route: PO, Drug Form: 07/12/2013 07/14/2013 Discontinued one 325 mg-5 mg oral TAB, Dosing Weight 86.364, tablet kg, Q4H, PRN Pain, Start date: 07/12/13 18:23:00, Duration: 30 day, Stop date: 08/11/13 18:22:00(Same as: [place] 325/5) Do not exceed 4gm/day of acetaminophen. [...] 1 doses or times, Dose =2.2ml/kg, Max cxvd=956ux -- "To be infused by Radiology Staff ONLY" 201207/12/2013 Completed Dose=2.2ml/kg, Max kpdf=011zj -- "To be infused by Radiology Staff [...] day, Stop date: 08/11/13 9:00:00(Same as: Lopressor) [place] 5/325 oral 1 tab, Route: PO, Dosing [...] date: 08/11/13 9:00:00(Same as: Mag-Ox 400)Magnesium oxide 486bp=681xg elemental magnesiumDose=____mg magnesium oxide (___mg elemental magnesium) [...] [Negative] Negative 1 (07/13/2013 00:00:59) 1Interpretive Data: [employer] Clostridium difficile assay utilizes loop-mediated isothermalDNA amplification (LAMP) technology to detect a 204 bp region of the tcdA gene within the PaLoc genesegment present in all known toxigenic C. difficile strains. The assay utilizes FDA cleared IVD reagents. Performance characteristics have been verified by the Molecular Diagnostic Laboratory within the [facility]. The Molecular Diagnostic Laboratory [...] /LPF] Many /LPF *ABN* (07/12/2013 03:00:00) UA [place] Yeast [None Seen /HPF] Moderate /HPF *ABN* [...] the clinical guidelines of the [place] Diabetes Association.9Interpretive Data: Adult reference range values reflect the clinical guidelines of the [place] Diabetes [employer].10Interpretive Data: Adult reference range values reflect the clinical guidelines of the [place] Diabetes [employer].HEMATOLOGY Most recent to oldest [Reference [...] to oldest [Reference Range]: 1 2 3 [place]-HIV 1/2 Ab [Negative] Negative *NA* (07/14/2013 00:27:00) [place]-Hep C Ab [Negative] Negative *NA* (07/14/2013 00:27:00) CDC-HIV 1/2 Ab [Negative] Negative *NA* (07/12/2013 16:02:06)
--- OUTSIDE RECORDS SUMMARY | 2019-05-20 23:10 | XMS REPORT | CCD ---
[...] 10/23/2012 Active Neuropathy Resolved - Nares - Oddag2ihxvj 10/23/201237090Favgwkf added by Discern Expert. Medications Medication Instructions [...]
--- OUTSIDE RECORDS SUMMARY | 2019-05-20 23:11 | XMS REPORT ---
:1965 Author Organization [facility] Address [address] [place] [address] [address] [place] [address] Care Team Providers Name Role Phone SHANI [...] (BEAKER) (test 211 mg/dL 70-110 TESTED AT [address] dlxr=0446) [place] [id number] POCT-GLUCOSE [id number] 13:04:00 Test Item Value Reference Range Comments POC-GLUCOSE METER (BEAKER) 282 mg/dL 70-110 TESTED AT [address] (test mvso=4633) [place] [id number] POCT-GLUCOSE [id number] 14:35:00 Test Item Value Reference Range Comments POC-GLUCOSE METER (BEAKER) 200 mg/dL 70-110 TESTED AT [address] (test cwal=7581) [place] [address] [id number] 12:24:00 Test Item Value Reference Range Comments SODIUM (BEAKER) (test cuwo=668) 136 meq/L 136-145 POTASSIUM (BEAKER) (test liqb=572) 5.4 meq/L 3.5-5.1 CHLORIDE (BEAKER) (test jgdw=681) 102 meq/L 98-107 CO2 (BEAKER) (test zrvy=013) 25 meq/L 22-29 [id number] 12:24:00 Test Item Value Reference Range Comments GLUCOSE RANDOM (BEAKER) (test umxz=168) 353 mg/dL 70-105 BUN AND [id number] 12:24:00 Test Item Value Reference Range Comments BLOOD UREA NITROGEN 14 mg/dL 7-21 ([facility]) (test izlp=954) CREATININE ([facility]) (test 1.08 mg/dL 0.57-1.25 gmzi=153) EGFR ([facility]) (test 53 mL/min/1.73 sq m ESTIMATED GFR IS NOT jlvm=6125) ACCURATE CREATININE CLEARANCE IN PREDICTING GLOMERULAR FILTRATION RATE. ESTIMATED GFR IS NOT APPLICABLE FOR DIALYSIS PATIENTS. POCT-HEMOGLOBIN [id number] 11:43:00 Test Item Value Reference Range Comments POC-HEMOGLOBIN METER 12.1 g/dL 12.0-15.[address] ([facility]) (test uurn=0562) [place] [address] POCT-GLUCOSE [id number] 11:43:00 Test Item Value Reference Range Comments POC-GLUCOSE METER ([facility]) 320 mg/dL 70-110 Verify with Lab draw/TESTED AT (test nlyh=6161) [place] [address] [address] [place] [address]
[2019-05-20] MEDS ORDERED: NA CHLORIDE 0.9% 1,000 ML ONE (23:17)
[2019-05-20 23:45] LABS: Basophils % 1.3 % (0-1.3); Hematocrit 33.2 % (36.0-45.0); Lymphocytes % 14.7 % (15.3-44.8); MPV 9.9 fL (7.6-11.3); RBC Red Blood Cell Count 4.34 M/uL (3.86-4.86)
[2019-05-20 23:50] LABS: Albumin 3.6 g/dL (3.4-5.0); Bilirubin Direct 0.3 mg/dL (0-0.2); Bilirubin Total 0.7 mg/dL (0.2-1.0); Potassium 3.2 mmol/L (3.5-5.1); Protein, Total 7.5 g/dL (6.4-8.2)
[2019-05-21] MEDS ORDERED: DIPHENHYDRAMINE 50 MG/ML VIAL ONE (00:08)
[2019-05-21] MEDS ORDERED: KCL 20 MEQ/100 mL IVPB 20 MEQ/100 ML BAG IV ONE (00:18)
[2019-05-21] MEDS ORDERED: NA CHLORIDE 0.9% 1,000 ML ONE (00:18)
[2019-05-21] MEDS ORDERED: METOCLOPRAMIDE 10 MG/2mL INJ ONE (00:28)
[2019-05-21] MEDS ORDERED: PROMETHAZINE 25 MG/ML VIAL ONE (02:32)
--- NOTE | 2019-05-21 02:32 | ER ---
Nurse's Notes [facility] Name: Ila Pérez Age: 53 yrs Sex: Female : 1965 Arrival Date: 05/20/2019 Time: 22:07 Bed 6 Private MD: Diagnosis: Nausea and vomiting;Dehydration;Hypokalemia;Hyperglycemia, unspecified Presentation: 05/20 22:31 Presenting complaint: Patient states: she went to [facility] for N/V/D thought she bb was in DKA but they said she wasn't in DKA and so would not transfer to a hospital with ICU so she came here. Transition of care: patient was not received from another setting of care. Onset of symptoms was May 20, 2019. Risk Assessment: Do you want to hurt yourself or someone else? Patient reports no desire to harm self or others. Initial Sepsis Screen: Does the patient meet any 2 criteria? RR > 20 per min. HR > 90 bpm. Yes Does the patient have a suspected source of infection? Yes: Acute abdominal pain If YES to both, name of provider notified: Elkin CLARKE. Care prior to arrival: was seen at [facility] and treated but left AMA. 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: 22:43 LMP N/A - bb Historical: - Allergies: 22:43 Gluten Protein; bb - Home Meds: 22:43 metoprolol succinate 25 mg oral Tb24 1 tab once daily [Active]; bupropion HCl 150 mg bb Oral TbER 1 tab once daily [Active]; pantoprazole 40 mg oral TbEC 1 tab 2 times per day [Active]; Vasculera 630 mg oral tab daily [Active]; lisinopril 5 mg Oral tab 1 tab once daily [Active]; Vitamin C Oral [Active]; Vit D3 [Active]; Super B complex [Active]; aspirin 81 mg Oral chew 1 tab once daily [Active]; nitroglycerin 0.4 mg SL subl 1 tab every 5 minutes [Active]; cyclobenzaprine 10 mg Oral tab 1 tab 3 times per day [Active]; Lyrica 150mg BID Oral [Active]; hydrocodone-acetaminophen 10-325 mg Oral tab 1 tab three times a day [Active]; Cymbalta 60 mg oral cpDR 1 cap once daily [Active]; Myrbetriq 25 mg oral Tb24 1 tab once daily [Active]; lorazepam 1 mg Oral tab 1 tab 3 times per day [Active]; zaleplon 10 mg oral cap 1 cap once daily [Active]; trazodone 100 mg Oral tab 1 tab nightly [Active]; ramelteon oral 8 mg at bedtime oral [Active]; Breo Ellipta 200-25 mcg/dose inhalation dsdv 1 puff once daily [Active]; Phenergan Oral 25 mg as needed [Active]; Zofran (as hydrochloride) 8 mg Oral tab 1 tab every 6 hours [Active]; Carafate 1 gram Oral tab 1 tab 2 times per day [Active]; telmisartan 20 mg oral tab 1 tab once daily [Active]; - PMHx: 22:43 Anxiety; Arthritis; Chronic pain; Depression; Diabetes - IDDM; Esophagitis; bb Fibromyalgia; Gastroparesis; GERD; heart disease; High Cholesterol; Hypertension; Myocardial infarction; neuropathy; raynaud's; sleep disorder; Tachycardia; TBI; - Immunization history:: Adult Immunizations up to date. - Social history:: Smoking status: Patient uses tobacco products, smokes one-half pack cigarettes per day. - Ebola Screening: : No symptoms or risks identified at this time. Screenin:22 Abuse screen: Denies threats or abuse. Denies injuries from another. Nutritional tl1 screening: No deficits noted. Tuberculosis screening: No symptoms or risk factors identified. Fall Risk IV access (20 points). Assessment: 23:20 General: Appears uncomfortable, Behavior is calm, cooperative, appropriate for age. tl1 23:21 Pain: Complains of pain in abdomen. Neuro: Level of Consciousness is awake, alert, tl1 obeys commands, Oriented to person, place, time, situation. Cardiovascular: No deficits noted. Respiratory: Airway is patent Trachea midline Respiratory effort is even, unlabored, Respiratory pattern is regular, Breath sounds are clear bilaterally. GI: Abdomen is non-distended, Bowel sounds present X 4 quads. Abd is soft and non tender X 4 quads. Reports intolerance of fluids, intolerance of food, nausea, vomiting. : No signs and/or symptoms were reported regarding the genitourinary system. EENT: No signs and/or symptoms were reported regarding the EENT system. Derm: No signs and/or symptoms reported regarding the dermatologic system. 05/21 02:34 Reassessment: Patient and/or family updated on plan of care and expected duration. Pain tl1 level reassessed. Patient is alert, oriented x 3, equal unlabored respirations, skin warm/dry/pink. Patient states feeling better. Patient states symptoms have improved. 03:10 GI: Abdomen is non-distended, Bowel sounds present X 4 quads. Abd is soft and non tl1 tender X 4 quads. Vital Signs: 05/20 22:43 BP 185 / 72; Pulse 104; Resp 22 S; Temp 98.1(O); Pulse Ox 100% on R/A; Weight 79.38 kg bb (R); Height 5 ft. 4 in. (162.56 cm) (R); Pain 8/10; 05/21 00:41 BP 165 / 71; Pulse 111; Resp 17; Pulse Ox 98% on R/A; tl1 01:05 BP 163 / 63; Pulse 111; Resp 20; Pulse Ox 100% on R/A; tl1 02:37 BP 166 / 79; Pulse 113; Resp 19; Temp 98.2(O); Pulse Ox 98% on R/A; Pain 4/10; tl1 05/20 22:43 Body Mass Index 30.04 (79.38 kg, 162.56 cm) ED Course: 05/20 22:07 Patient arrived in ED. cf2 22:34 Triage completed. bb 22:35 Elkin Nagy PA is PHCP. jr8 22:35 Chuy Cox MD is Attending Physician. jr8 22:43 Arm band placed on Patient placed in an exam room, on a stretcher, on pulse oximetry. bb 22:43 Patient has correct armband on for positive identification. Placed in gown. Bed in low tl1 position. Call light in reach. Side rails up X2. Pulse ox on. NIBP on. 22:51 Missed attempt(s): 22 gauge in left antecubital area. lt1 22:52 Missed attempt(s): 22 gauge in left forearm. lt1 23:19 Cherelle Wing, MARTÍNEZ is Primary Nurse. tl1 23:19 No provider procedures requiring assistance completed. Inserted saline lock: 20 gauge tl1 in right EJ, using aseptic technique. ,using aseptic technique. inserted by Elkin CLARKE Blood collected. 05/21 01:03 Warm blanket given. Assisted with bedpan. tl1 01:12 Assisted with bedpan. tl1 01:41 Assisted with bedpan. tl1 03:58 IV discontinued, intact, bleeding controlled, No redness/swelling at site. Pressure tl1 dressing applied. Administered Medications: 05/20 23:10 Drug: Phenergan 12.5 mg Route: IVP; Infused Over: 2 mins; Site: right jugular; tl1 05/21 02:36 Follow up: Response: No adverse reaction; Marked relief of symptoms; Nausea is decreasedtl1 05/20 23:18 Drug: NS 0.9% 1000 ml Route: IV; Rate: 1000 ml; Site: right jugular; rr5 05/21 01:00 Follow up: IV Status: Completed infusion; IV Intake: 1000ml tl1 00:14 Drug: Benadryl 25 mg Route: IVP; Infused Over: 2 mins; Site: right jugular; tl1 02:35 Follow up: Response: No adverse reaction; Marked relief of symptoms; Nausea is decreasedtl1 00:20 Drug: Potassium Chloride 20 mEq Route: IV; Rate: calculated rate; Site: right jugular; tl1 02:20 Follow up: IV Status: Completed infusion; IV Intake: 100ml tl1 00:20 Drug: NS 0.9% 1000 ml Route: IV; Rate: 1000 ml; Site: right jugular; tl1 02:20 Follow up: IV Status: Completed infusion; IV Intake: 1000ml tl1 00:34 Drug: Reglan 10 mg Route: IVP; Site: right jugular; tl1 02:35 Follow up: Response: No adverse reaction; Marked relief of symptoms; Nausea is decreasedtl1 02:35 Drug: Phenergan 12.5 mg Route: IVP; Infused Over: 2 mins; Site: right jugular; tl1 02:36 Follow up: Response: No adverse reaction; No change in condition; Medication tl1 administered at discharge. Point of Care Testing: Blood Glucose: 02:25 Blood Glucose: 300 mg/dL; rr5 Ranges: Intake: 01:00 IV: 1000ml; Total: 1000ml. tl1 02:20 IV: 100ml; Total: 1100ml. tl1 02:20 IV: 1000ml; Total: 2100ml. tl1 Outcome: 02:31 Discharge ordered by MD. serna 03:58 Discharged to home via wheelchair, with family. tl1 03:58 Condition: improved 03:58 Discharge instructions given to patient, Instructed on discharge instructions, follow up and referral plans. Demonstrated understanding of instructions, follow-up care. 03:59 Patient left the ED. tl1 Signatures: Reshma Avendaño RN RN Elkin Delacruz PA PA jr8 Cherelle Wing RN RN tl1 Zev Baig RN RN rr5 Madelyn De La Garza 1 Zion Grijalva 2
--- NOTE | 2019-05-21 02:33 | EDPHYS ---
Physician Documentation [facility] Name: Ila Pérez Age: 53 yrs Sex: Female : 1965 Arrival Date: 05/20/2019 Time: 22:07 Bed 6 Private MD: ED Physician Chuy Cox HPI: 05/20 23:17 This 53 yrs old Female presents to ER via Wheelchair with complaints of jr8 Nausea, Diarrhea. 23:17 The patient presents to the emergency department with nausea, vomiting, diarrhea. jr8 Onset: The symptoms/episode began/occurred acutely, today. Possible causes: unknown. The symptoms are aggravated by nothing. The symptoms are alleviated by nothing. Associated signs and symptoms: The patient has no apparent associated signs or symptoms. Severity of symptoms: At their worst the symptoms were moderate in the emergency department the symptoms are unchanged. It is unknown whether or not the patient has had similar symptoms in the past. The patient has been recently seen by a physician:. Patient had sudden onset of n/v/d that started today. Stated that she had gone to another ED and was d/c'd. Came here because she is still feeling bad . 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 - bb Historical: - Allergies: 22:43 Gluten Protein; bb - Home Meds: 22:43 metoprolol succinate 25 mg oral Tb24 1 tab once daily [Active]; bupropion HCl 150 mg bb Oral TbER 1 tab once daily [Active]; pantoprazole 40 mg oral TbEC 1 tab 2 times per day [Active]; Vasculera 630 mg oral tab daily [Active]; lisinopril 5 mg Oral tab 1 tab once daily [Active]; Vitamin C Oral [Active]; Vit D3 [Active]; Super B complex [Active]; aspirin 81 mg Oral chew 1 tab once daily [Active]; nitroglycerin 0.4 mg SL subl 1 tab every 5 minutes [Active]; cyclobenzaprine 10 mg Oral tab 1 tab 3 times per day [Active]; Lyrica 150mg BID Oral [Active]; hydrocodone-acetaminophen 10-325 mg Oral tab 1 tab three times a day [Active]; Cymbalta 60 mg oral cpDR 1 cap once daily [Active]; Myrbetriq 25 mg oral Tb24 1 tab once daily [Active]; lorazepam 1 mg Oral tab 1 tab 3 times per day [Active]; zaleplon 10 mg oral cap 1 cap once daily [Active]; trazodone 100 mg Oral tab 1 tab nightly [Active]; ramelteon oral 8 mg at bedtime oral [Active]; Breo Ellipta 200-25 mcg/dose inhalation dsdv 1 puff once daily [Active]; Phenergan Oral 25 mg as needed [Active]; Zofran (as hydrochloride) 8 mg Oral tab 1 tab every 6 hours [Active]; Carafate 1 gram Oral tab 1 tab 2 times per day [Active]; telmisartan 20 mg oral tab 1 tab once daily [Active]; - PMHx: 22:43 Anxiety; Arthritis; Chronic pain; Depression; Diabetes - IDDM; Esophagitis; bb Fibromyalgia; Gastroparesis; GERD; heart disease; High Cholesterol; Hypertension; Myocardial infarction; neuropathy; raynaud's; sleep disorder; Tachycardia; TBI; - Immunization history:: Adult Immunizations up to date. - Social history:: Smoking status: Patient uses tobacco products, smokes one-half pack cigarettes per day. - Ebola Screening: : No symptoms or risks identified at this time. ROS: 23:17 Eyes: Negative for injury, pain, redness, and discharge, ENT: Negative for injury, jr8 pain, and discharge, Neck: Negative for injury, pain, and swelling, Cardiovascular: Negative for chest pain, palpitations, and edema, Respiratory: Negative for shortness of breath, cough, wheezing, and pleuritic chest pain, Back: Negative for injury and pain, MS/Extremity: Negative for injury and deformity, Skin: Negative for injury, rash, and discoloration, Neuro: Negative for headache, weakness, numbness, tingling, and seizure. 23:17 Abdomen/GI: Positive for nausea, vomiting, and diarrhea, abdominal cramps, Negative for abdominal distension, hematemesis, black/tarry stool, rectal pain, rectal bleeding, bowel incontinence, flatulence. Exam: 23:17 Eyes: Pupils equal round and reactive to light, extra-ocular motions intact. Lids and jr8 lashes normal. Conjunctiva and sclera are non-icteric and not injected. Cornea within normal limits. Periorbital areas with no swelling, redness, or edema. ENT: Nares patent. No nasal discharge, no septal abnormalities noted. Tympanic membranes are normal and external auditory canals are clear. Oropharynx with no redness, swelling, or masses, exudates, or evidence of obstruction, uvula midline. Mucous membranes moist. Neck: Trachea midline, no thyromegaly or masses palpated, and no cervical lymphadenopathy. Supple, full range of motion without nuchal rigidity, or vertebral point tenderness. No Meningismus. Cardiovascular: Regular rate and rhythm with a normal S1 and S2. No gallops, murmurs, or rubs. Normal PMI, no JVD. No pulse deficits. Respiratory: Lungs have equal breath sounds bilaterally, clear to auscultation and percussion. No rales, rhonchi or wheezes noted. No increased work of breathing, no retractions or nasal flaring. Back: No spinal tenderness. No costovertebral tenderness. Full range of motion. Skin: Warm, dry with normal turgor. Normal color with no rashes, no lesions, and no evidence of cellulitis. MS/ Extremity: Pulses equal, no cyanosis. Neurovascular intact. Full, normal range of motion. Neuro: Awake and alert, GCS 15, oriented to person, place, time, and situation. Cranial nerves II-XII grossly intact. Motor strength 5/5 in all extremities. Sensory grossly intact. Cerebellar exam normal. Normal gait. 23:17 Abdomen/GI: Inspection: abdomen appears normal, Bowel sounds: active, all quadrants, Palpation: soft, in all quadrants, mild abdominal tenderness, in the abdomen diffusely, mass, is not appreciated, rebound tenderness, is not appreciated, voluntary guarding, is not appreciated, involuntary guarding, is not appreciated, no appreciated organomegaly, Indicators: McBurney's point is not tender, Jimenez's sign is negative, Rovsing's sign is negative, Liver: tenderness, is not appreciated. Vital Signs: 22:43 BP 185 / 72; Pulse 104; Resp 22 S; Temp 98.1(O); Pulse Ox 100% on R/A; Weight 79.38 kg bb (R); Height 5 ft. 4 in. (162.56 cm) (R); Pain 8/10; 05/21 00:41 BP 165 / 71; Pulse 111; Resp 17; Pulse Ox 98% on R/A; tl1 01:05 BP 163 / 63; Pulse 111; Resp 20; Pulse Ox 100% on R/A; tl1 02:37 BP 166 / 79; Pulse 113; Resp 19; Temp 98.2(O); Pulse Ox 98% on R/A; Pain 4/10; tl1 05/20 22:43 Body Mass Index 30.04 (79.38 kg, 162.56 cm) bb MDM: 05/20 22:35 Patient medically screened. [facility] 05/21 02:29 Data reviewed: vital signs, nurses notes, lab test result(s), and as a result, I will jr8 discharge patient. Data interpreted: Pulse oximetry: on room air is 100 %. Interpretation: normal. Counseling: I had a detailed discussion with the patient and/or guardian regarding: the historical points, exam findings, and any diagnostic results supporting the discharge/admit diagnosis, lab results, the need for outpatient follow up, a family practitioner, to return to the emergency department if symptoms worsen or persist or if there are any questions or concerns that arise at home. Response to treatment: the patient's symptoms have markedly improved after treatment. ED course: Patient well hydrated. No more vomiting at this time. No increase in WBC count. Abdomen without pain upon palpation. Will send home to f/u with PCP. If worse to come back . 05/20 22:35 Order name: Basic Metabolic Panel [facility] 05/20 22:35 Order name: CBC with Diff [facility] 05/20 22:35 Order name: Creatinine for Radiology [facility] 05/20 22:35 Order name: Hepatic Function [facility] 05/20 22:35 Order name: Lipase [facility] 05/20 23:04 Order name: Ketone, Serum [facility] 05/20 23:14 Order name: Glucose, Ancillary Testing; Complete Time: 23:14 EDTN 05/20 23:48 Order name: Creatinine (Radiology Only); Complete Time: 23:48 EDMS 05/20 23:51 Order name: Basic Metabolic Panel; Complete Time: 00:03 EDTN 05/20 23:51 Order name: Liver (Hepatic) Function; Complete Time: 00:03 EDTN 05/20 23:51 Order name: Lipase; Complete Time: 00:03 EDTN 05/20 23:51 Order name: CBC with Automated Diff; Complete Time: 00:03 [facility] 05/21 00:33 Order name: Acetone Level; Complete Time: 01:01 EDMS 05/21 03:28 Order name: Glucose, Ancillary Testing; Complete Time: 03:32 EDMS 05/20 22:35 Order name: IV Saline Lock; Complete Time: 23:28 jr8 05/20 22:35 Order name: Labs collected and sent; Complete Time: 23:28 jr8 Administered Medications: 05/20 23:10 Drug: Phenergan 12.5 mg Route: IVP; Infused Over: 2 mins; Site: right jugular; tl1 05/21 02:36 Follow up: Response: No adverse reaction; Marked relief of symptoms; Nausea is decreasedtl1 05/20 23:18 Drug: NS 0.9% 1000 ml Route: IV; Rate: 1000 ml; Site: right jugular; rr5 05/21 01:00 Follow up: IV Status: Completed infusion; IV Intake: 1000ml tl1 00:14 Drug: Benadryl 25 mg Route: IVP; Infused Over: 2 mins; Site: right jugular; tl1 02:35 Follow up: Response: No adverse reaction; Marked relief of symptoms; Nausea is decreasedtl1 00:20 Drug: Potassium Chloride 20 mEq Route: IV; Rate: calculated rate; Site: right jugular; tl1 02:20 Follow up: IV Status: Completed infusion; IV Intake: 100ml tl1 00:20 Drug: NS 0.9% 1000 ml Route: IV; Rate: 1000 ml; Site: right jugular; tl1 02:20 Follow up: IV Status: Completed infusion; IV Intake: 1000ml tl1 00:34 Drug: Reglan 10 mg Route: IVP; Site: right jugular; tl1 02:35 Follow up: Response: No adverse reaction; Marked relief of symptoms; Nausea is decreasedtl1 02:35 Drug: Phenergan 12.5 mg Route: IVP; Infused Over: 2 mins; Site: right jugular; tl1 02:36 Follow up: Response: No adverse reaction; No change in condition; Medication tl1 administered at discharge. Point of Care Testing: Blood Glucose: 02:25 Blood Glucose: 300 mg/dL; rr5 Ranges: Critical Glucose Levels:Adult <50 mg/dl or >400 mg/dl <40 mg/dl or >180 mg/dl Disposition: 06:12 Co-signature as Attending Physician, Chuy Cox MD. rn Disposition: 05/21/19 02:31 Discharged to Home. Impression: Nausea and vomiting, Dehydration, Hypokalemia, Hyperglycemia, unspecified. - Condition is Stable. - Discharge Instructions: Hyperglycemia, Nausea and Vomiting, Adult, Blood Glucose Monitoring, Adult, Hypokalemia. - Medication Reconciliation Form, Thank You Letter, Antibiotic Education, Prescription Opioid Use form. - Follow up: Private Physician; When: 2 - 3 days; Reason: Recheck today's complaints, Continuance of care, Re-evaluation by your physician. - Problem is new. - Symptoms have improved. Signatures: Dispatcher [employer] EDMS Reshma Avendaño RN RN bb Chuy Cox MD MD rn Roszak, Josh, VINCE PA jr8 Cherelle Wing RN RN tl1 Zev Baig RN RN rr5 Corrections: (The following items were deleted from the chart) 03:59 02:31 05/21/2019 02:31 Discharged to Home. Impression: Nausea and vomiting; tl1 Dehydration; Hypokalemia; Hyperglycemia, unspecified. Condition is Stable. Forms are Medication Reconciliation Form, Thank You Letter, Antibiotic Education, Prescription Opioid Use. Follow up: Private Physician; When: 2 - 3 days; Reason: Recheck today's complaints, Continuance of care, Re-evaluation by your physician. Problem is new. Symptoms have improved. jr8
[2019-05-21 04:34] VITALS: BP 166/79; TEMP 98.2; O2SAT 98
== END 2019-05-21 03:59 | disposition home or self-care (01) ==
LOC: ER 22:03
DX: E86.0 Dehydration (principal); E87.6 Hypokalemia; R73.9 Hyperglycemia, unspecified; E11.9 Type 2 diabetes mellitus without complications; I10 Essential (primary) hypertension; M79.7 Fibromyalgia; K21.9 Gastro-esophageal reflux disease without esophagitis; I25.2 Old myocardial infarction; Z91.018 Allergy to other foods; F17.210 Nicotine dependence, cigarettes, uncomplicated
CPT/HCPCS: 96365; 96361; 85025; 80048; 36415; 82010; 82962 ×2; 80076; 83690; 96375; 99284; 96366; J2765; J2550 ×2; J7030 ×2